=== PATIENT | female | born 1975 | race Caucasian/White ===

== ENCOUNTER 2020-11-29 12:36 | Emergency (ER) | payer MEDICARE, MEDICAID, SELFPAY ==
--- NOTE | 2020-11-29 12:37 | ED_ITS ---
HPI - Psych General Chief Complaint: Psychiatric Symptoms Stated Complaint: CRISIS,SI,AUDIO/VISUAL HALLUCINATIONS Time Seen by Provider: 11/29/20 12:37 Source: patient and EMS Mode of arrival: EMS Limitations: no limitations History of Present Illness HPI Narrative: 44 yo female with longstanding mental health issues here having anxiety, SI, flashbacks no injuries at this time MD complaint: suicidal ideation, anxiety and hallucinations Onset (ago): day(s) (1) Duration: constant History of same: Yes Relieving factors: none Exacerbating factors: other (flashbacks) Context: significant life stressor Associated psychiatric symptoms: depression, suicidal ideation, auditory hallucinations and visual hallucinations Associated symptoms: denies other symptoms Treatments prior to arrival: none If self harm: admits thoughts of self harm Related Data Allergies Allergy/AdvReac Type Severity Reaction Status Date / Time Fish Containing Products Allergy Severe ANAPHYLAXIS Unverified 07/01/20 16:44 codeine [Codeine] Allergy Unknown RASH Unverified 07/01/20 16:44 penicillin V Allergy Unknown Verified 01/10/18 00:00 Penicillins Allergy Unknown RASH Unverified 07/01/20 16:44 prednisolone Allergy Unknown Verified 01/10/18 00:00 prednisone [Prednisone] Allergy Unknown RASH Unverified 07/01/20 16:44 Sulfa (Sulfonamide Allergy Unknown RASH Unverified 07/01/20 16:44 Antibiotics) [Sulfa (Sulfonamides)] ziprasidone [Geodon] Allergy Unknown Verified 01/10/18 00:00 azithromycin [AZITHROMYCIN] AdvReac Severe RASH Unverified 07/01/20 16:44 nicotine AdvReac Unknown HEART Unverified 07/01/20 16:44 PALPITATION TO NICOTINE GUM Seafood Allergy Severe ANAPHYLAXIS Uncoded 07/01/20 16:44 Codeine Phosphate Allergy Unknown Uncoded 01/10/18 00:00 From Geodon Allergy Unknown DYSURIA, Uncoded 07/01/20 16:44 RASH seafood Allergy Unknown Uncoded 01/10/18 00:00 Review of Systems Review of Systems: Constitutional : No Fever, No Chills ENT/Mouth : No Ear Pain, No Nasal Congestion, No sore throat Eyes: No Eye Pain, No Swelling, No Redness Cardiovascular : No Chest Pain, No SOB Respiratory : No Cough, No Sputum, No Dyspnea Gastrointestinal : No Nausea, No Vomiting, No Diarrhea, No Hematochezia, No Melena Genitourinary : No Dysuria, No Urinary Frequency, No Hematuria Musculoskeletal : No Myalgias Skin : No Skin Lesions, No rash Neuro : No Weakness, No Numbness, No Paresthesias, No Dizziness, No Headache Psych : positive Anxiety, positive Depression, positive SI no HI, pos hallucinations Heme/Lymph: No Lymphadenopathy Endocrine : No Polyuria, No Polydipsia All other systems reviewed and are negative [facility] Past Medical History Attestation statement: The following information was validated with the patient. Source: old records reviewed Medical History (Updated 11/29/20 @ 15:31 by Mojgan Hernandez DO) Bronchitis GERD (gastroesophageal reflux disease) Hyperlipidemia Mood disorder Overdose PTSD (post-traumatic stress disorder) Social History Social History (Updated 11/29/20 @ 12:43 by Mojgan Hernandez DO) Smoking Status: Current every day smoker Use of substances other than those prescribed or required for medical reasons: No Advance Directives: No Advance Directives Information Provided: No Physical Exam Vital Signs: Vital Signs: Last Vital Signs Temp 98.6 F 11/29/20 14:00 Pulse 100 11/29/20 14:00 Resp 18 11/29/20 14:00 BP 150/87 H 11/29/20 14:00 Pulse Ox 97 11/29/20 14:00 Body Mass Index 39.9 Appearance: Alert. Oriented X3. No acute distress. Anxious Eyes: Pupils equal, round and reactive to light. ENT: Pharynx normal. Neck: Normal inspection. Neck supple. CVS: Normal heart rate and rhythm. Pulses normal. Respiratory: No respiratory distress. Breath sounds normal. Abdomen: Soft and nontender. Skin: Skin warm and dry. Normal skin color. Normal skin turgor. Extremities: No lower extremity edema. No calf ttp Neuro: Oriented X 3. No motor deficit. No sensory deficit. CN 2 - 12 intact Psych: + anxiety/depression, + SI no HI Course Course Course Narrative: signed out pending N MDM - Psych MDM Narrative Medical decision making narrative: 44 yo female with longstanding mental health issues here with SI / anxiety / flashbacks - typical of her presentation, will obtain labs, PO ativan for anxiety, low susp for self harm in ED at this time close observations ordered, N consult placed Lab Data Result diagrams: 11/29/20 14:05 11/29/20 14:05 Labs: Lab Results 11/29/20 11/29/20 11/29/20 Range/Units 14:05 14:05 14:05 WBC 7.5 (4.8-10.8) X10*3/uL RBC 4.04 L (4.20-5.50) X10*6/uL Hgb 11.9 L (12.0-16.0) g/dl Hct 36.3 L (37-47) % MCV 89.9 (80-98) fL MCH 29.5 (27.0-33.0) pg MCHC 32.8 (31.0-35.0) g/dl RDW 12.4 (11.0-16.0) % Plt Count 299 (160-400) X10*3/uL MPV 9.7 (9.4-12.3) fL Immature Gran % (Auto) 0.3 (0.0-0.4) % Neut % (Auto) 74.0 H (45-73) % Lymph % (Auto) 16.9 L (20-40) % [place] % (Auto) 5.3 (2-11) % Eos % (Auto) 3.1 (0-4) % Baso % (Auto) 0.4 (0-2) % Lymph # (Auto) 1.3 (1.2-4.9) X10*3/uL [place] # (Auto) 0.4 (0.1-1.2) X10*3/uL Eos # (Auto) 0.2 (0.0-0.4) X10*3/uL Baso # (Auto) 0.0 (0.0-0.2) X10*3/uL Abs Immat Gran (auto) 0.02 (0.00-0.03) X10*3/uL Absolute Neuts (auto) 5.6 (2.0-8.3) X10*3/uL Absolute Nucleated RBC 0.000 (0.0-0.012) X10*3/uL Nucleated RBC % (auto) 0.0 (0.0-0.2) /100WBC Sodium 138 (135-145) mmol/L Potassium 3.8 (3.3-5.1) mmol/L Chloride 105 (96-108) mmol/L Carbon Dioxide 25 (22-29) mmol/L Anion Gap 12 (12-20) BUN 13 (9-16) mg/dL Creatinine 0.79 (0.5-1.4) mg/dL Estim Creat Clear Calc 113.8 Estimated GFR > 60 Random Glucose 163 H (60-115) mg/dL Calcium 8.8 (8.4-10.2) mg/dL Total Bilirubin 0.5 (0.0-1.0) mg/dL Direct Bilirubin < 0.2 (0.0-0.5) mg/dL AST 14 (5-31) U/L ALT 11 (0-31) U/L Alkaline Phosphatase 93 (39-117) U/L Total Protein 6.4 L (6.5-8.0) g/dL Albumin 4.1 (3.5-5.0) g/dL COVID-19 ([facility]) Negative (Negative) COVID-19 Clin Com See Note Discharge Plan Discharge Clinical Impression: Acute anxiety, Chronic post-traumatic stress disorder (PTSD)
[2020-11-29] MEDS: LORazepam 1 MG TABLET 2 MG PO (12:49)
[2020-11-29 12:53] VITALS: BP 130/80; BP 150/87; PULSE 106; PULSE 108; RESP 18; TEMP 37; O2SAT 97; O2SAT 98; BMI 39.9
[2020-11-29] MEDS: LORazepam 1 MG TABLET PO (13:54)
--- NOTE | 2020-11-29 13:55 | PC.NURSE ---
Pt states she is still anxious, MD Hernandez placed order for additional 1mg ativan PO. Administered to patient. Will continue to monitor.
[2020-11-29 14:00] VITALS: BP 150/87; PULSE 100; RESP 18; TEMP 37; O2SAT 97
[2020-11-29 14:10] LABS: MANUAL DIFF FLAG NO
[2020-11-29 14:12] LABS: Basophils Percent Auto 0.4 % (0-2); Eosinophils Absolute Auto 0.2 X10*3/uL (0.0-0.4); Eosinophils Percent Auto 3.1 % (0-4); Hematocrit 36.3 % (37-47); Hemoglobin 11.9 g/dl (12.0-16.0); Imm Gran Abs Auto 0.02 X10*3/uL (0.00-0.03); Imm Gran Pct Auto 0.3 % (0.0-0.4); Lymphocytes Absolute Auto 1.3 X10*3/uL (1.2-4.9); Lymphocytes Percent Auto 16.9 % (20-40); Mean Corpuscular HGB Conc 32.8 g/dl (31.0-35.0); Mean Corpuscular Hemoglobin 29.5 pg (27.0-33.0); Mean Corpuscular Volume 89.9 fL (80-98); Mean Platelet Volume 9.7 fL (9.4-12.3); Monocytes Absolute Auto 0.4 X10*3/uL (0.1-1.2); Monocytes Percent Auto 5.3 % (2-11); Neutrophils Absolute Auto 5.6 X10*3/uL (2.0-8.3); Platelet Count 299 X10*3/uL (160-400); Red Blood Count 4.04 X10*6/uL (4.20-5.50); Red Cell Distribution Width 12.4 % (11.0-16.0); White Blood Count 7.5 X10*3/uL (4.8-10.8)
[2020-11-29 14:27] LABS: COVID-19 Test Negative (Negative)
[2020-11-29 14:37] LABS: Alanine Aminotransferase 11 U/L (0-31); Albumin Level 4.1 g/dL (3.5-5.0); Alkaline Phosphatase 93 U/L (39-117); Anion Gap 12 (12-20); Aspartate Amino Transferase 14 U/L (5-31); Bilirubin Direct < 0.2 mg/dL (0.0-0.5); Bilirubin Total 0.5 mg/dL (0.0-1.0); Blood Urea Nitrogen 13 mg/dL (9-16); Calcium 8.8 mg/dL (8.4-10.2); Carbon Dioxide 25 mmol/L (22-29); Chloride 105 mmol/L (96-108); Creatinine Clr Calc Pharmacy 113.8; Estimated Glomerular Filt Rate > 60; Glucose Random 163 mg/dL (60-115); Potassium 3.8 mmol/L (3.3-5.1); Sodium 138 mmol/L (135-145); Total Protein 6.4 g/dL (6.5-8.0)
[2020-11-29 16:00] VITALS: BP 144/82; PULSE 95; RESP 18; O2SAT 97
--- NOTE | 2020-11-29 17:39 | MHC.CARE ---
This repairer typewriter faxed referral for evaluation to [facility], called to follow up. Per [facility] counselor, fax referral had not yet been received however pt will be added to the list. This repairer typewriter will call to follow up again at 1800.
--- NOTE | 2020-11-29 19:41 | MHC.CARE ---
Pt was seen by CARE team due to [facility] not having any clinicians. [place] [facility] [place] [facility] [employer] secondary to endorsing PTSD and AH to harm herself. She expressed that she is stressed out, tired and having flashbacks of my cousin who killed herself in front of me . Pt requested to return to [facility], denied any current AH/VH and SI/HI. She denied any thoughts of self harm and reports feeling safe to return to her halfway.
--- NOTE | 2020-11-29 20:37 | PC.NURSE ---
PATIENT CLEARED/READY FOR DISCHARGE. PT ATTEMPTING TO CONTACT RIDES AT THIS TIME. WILL CONTINUE TO MONITOR.
== END 2020-11-29 22:21 | disposition home or self-care (01) ==
PROVIDERS: Emergency Provider Emergency Medicine; PCP Internal Medicine
DX: F41.9 Anxiety disorder, unspecified (principal); F43.12 Post-traumatic stress disorder, chronic; F32.9 Major depressive disorder, single episode, unspecified; R45.851 Suicidal ideations; R44.0 Auditory hallucinations; R44.1 Visual hallucinations; Z20.822 Contact with and (suspected) exposure to COVID-19; F17.200 Nicotine dependence, unspecified, uncomplicated; Z91.5 Personal history of self-harm
CPT/HCPCS: 36415; 80048; 80076; 85025; 87635; 99285

== ENCOUNTER 2020-12-15 13:20 | Emergency (ER) | payer MEDICARE, MEDICAID, SELFPAY ==
[2020-12-15 13:31] VITALS: BP 119/74; PULSE 116; RESP 19; TEMP 37.1; O2SAT 97; BMI 39.9
--- NOTE | 2020-12-15 13:39 | ED.PSYCH ---
HPI - Psych General Chief Complaint: Psychiatric Symptoms Stated Complaint: CIRSIS [id number] Time Seen by Provider: 12/15/20 13:38 Source: patient and EMS Mode of arrival: EMS Limitations: no limitations History of Present Illness HPI Narrative: 45 yo female with long standing mental health issues and past trauma comes in with c/o SI 2 days after revisiting past trauma MD complaint: suicidal ideation and feels depressed Onset (ago): day(s) (2) Duration: constant History of same: Yes Relieving factors: none Exacerbating factors: none Context: significant life stressor Associated psychiatric symptoms: depression Associated symptoms: denies other symptoms Treatments prior to arrival: placed on mental health hold If self harm: admits thoughts of self harm Related Data Allergies Allergy/AdvReac Type Severity Reaction Status Date / Time Fish Containing Products Allergy Severe ANAPHYLAXIS Unverified 07/01/20 16:44 codeine [Codeine] Allergy Unknown RASH Unverified 07/01/20 16:44 penicillin V Allergy Unknown Verified 01/10/18 00:00 Penicillins Allergy Unknown RASH Unverified 07/01/20 16:44 prednisolone Allergy Unknown Verified 01/10/18 00:00 prednisone [Prednisone] Allergy Unknown RASH Unverified 07/01/20 16:44 Sulfa (Sulfonamide Allergy Unknown RASH Unverified 07/01/20 16:44 Antibiotics) [Sulfa (Sulfonamides)] ziprasidone [Geodon] Allergy Unknown Verified 01/10/18 00:00 azithromycin [AZITHROMYCIN] AdvReac Severe RASH Unverified 07/01/20 16:44 nicotine AdvReac Unknown HEART Unverified 07/01/20 16:44 PALPITATION TO NICOTINE GUM Seafood Allergy Severe ANAPHYLAXIS Uncoded 07/01/20 16:44 Codeine Phosphate Allergy Unknown Uncoded 01/10/18 00:00 From Geodon Allergy Unknown DYSURIA, Uncoded 07/01/20 16:44 RASH seafood Allergy Unknown Uncoded 01/10/18 00:00 Review of Systems Review of Systems: Constitutional : No Fever, No Chills ENT/Mouth : No Ear Pain, No Nasal Congestion, No sore throat Eyes: No Eye Pain, No Swelling, No Redness Cardiovascular : No Chest Pain, No SOB Respiratory : No Cough, No Sputum, No Dyspnea Gastrointestinal : No Nausea, No Vomiting, No Diarrhea, No Hematochezia, No Melena Genitourinary : No Dysuria, No Urinary Frequency, No Hematuria Musculoskeletal : No Myalgias Skin : No Skin Lesions, No rash, superficial scratch from her own nails L forearm Neuro : No Weakness, No Numbness, No Paresthesias, No Dizziness, No Headache Psych : positive Anxiety, positive Depression, positive SI, no HI Heme/Lymph: No Lymphadenopathy Endocrine : No Polyuria, No Polydipsia All other systems reviewed and are negative [facility] Past Medical History Medical History Bronchitis GERD (gastroesophageal reflux disease) Hyperlipidemia Mood disorder Overdose PTSD (post-traumatic stress disorder) Social History Social History Alcohol intake: never Smoking Status: Current every day smoker Smoked in Last 30 Days: No Use of substances other than those prescribed or required for medical reasons: No Advance Directives: No Advance Directives Information Provided: No Physical Exam Vital Signs: Vital Signs: Last Vital Signs Temp 98.7 F 12/15/20 13:31 Pulse 116 H 12/15/20 13:31 Resp 19 12/15/20 13:31 BP 119/74 12/15/20 13:31 Pulse Ox 97 12/15/20 13:31 Body Mass Index 39.9 Appearance: Alert. Oriented X3. No acute distress. Eyes: Pupils equal, round and reactive to light. ENT: Pharynx normal. Neck: Normal inspection. Neck supple. CVS: Normal heart rate and rhythm. Pulses normal. Respiratory: No respiratory distress. Breath sounds normal. Abdomen: Soft and nontender. Skin: Skin warm and dry. Normal skin color. Normal skin turgor. L forearm mild superficial abrasion Extremities: No lower extremity edema. No calf ttp Neuro: Oriented X 3. No motor deficit. No sensory deficit. Psych: + depressed, + SI, no HI, hearing voices Course Course Course Narrative: signed out pending N MDM - Psych MDM Narrative Medical decision making narrative: 45 yo female well known to facility for mental health issues c/o SI - on section 12 PO ativan for anxiety, labs, [facility]N consult Lab Data Result diagrams: 12/15/20 15:18 12/15/20 15:18 Labs: Lab Results 12/15/20 12/15/20 12/15/20 Range/Units 14:52 15:18 15:18 WBC 6.7 (4.8-10.8) X10*3/uL RBC 4.21 (4.20-5.50) X10*6/uL Hgb 12.2 (12.0-16.0) g/dl Hct 37.6 (37-47) % MCV 89.3 (80-98) fL MCH 29.0 (27.0-33.0) pg MCHC 32.4 (31.0-35.0) g/dl RDW 12.4 (11.0-16.0) % Plt Count 276 (160-400) X10*3/uL MPV 9.7 (9.4-12.3) fL Immature Gran % (Auto) 0.3 (0.0-0.4) % Neut % (Auto) 67.6 (45-73) % Lymph % (Auto) 22.0 (20-40) % [place] % (Auto) 7.3 (2-11) % Eos % (Auto) 2.2 (0-4) % Baso % (Auto) 0.6 (0-2) % Lymph # (Auto) 1.5 (1.2-4.9) X10*3/uL [place] # (Auto) 0.5 (0.1-1.2) X10*3/uL Eos # (Auto) 0.2 (0.0-0.4) X10*3/uL Baso # (Auto) 0.0 (0.0-0.2) X10*3/uL Abs Immat Gran (auto) 0.02 (0.00-0.03) X10*3/uL Absolute Neuts (auto) 4.6 (2.0-8.3) X10*3/uL Absolute Nucleated RBC 0.000 (0.0-0.012) X10*3/uL Nucleated RBC % (auto) 0.0 (0.0-0.2) /100WBC Sodium 137 (135-145) mmol/L Potassium 4.1 (3.3-5.1) mmol/L Chloride 102 (96-108) mmol/L Carbon Dioxide 28 (22-29) mmol/L Anion Gap 11 L (12-20) BUN 9 (9-16) mg/dL Creatinine 0.87 (0.5-1.4) mg/dL Estim Creat Clear Calc 102.3 Estimated GFR > 60 Random Glucose 97 D (60-115) mg/dL Calcium 9.1 (8.4-10.2) mg/dL Total Bilirubin 0.5 (0.0-1.0) mg/dL Direct Bilirubin 0.2 (0.0-0.5) mg/dL AST 14 (5-31) U/L ALT 12 (0-31) U/L Alkaline Phosphatase 96 (39-117) U/L Total Protein 6.8 (6.5-8.0) g/dL Albumin 4.3 (3.5-5.0) g/dL Urine Color STRAW Urine Appearance CLEAR Urine pH 6.0 (5.0-8.0) Ur Specific [place] <= 1.005 (1.005-1.025) Urine Protein NEG (NEG-TRACE) MG/DL Urine Glucose (UA) NEG (NEG) MG/DL Urine Ketones NEG (NEG) MG/DL Urine Blood NEG (NEG) Urine Nitrite NEG (NEG) Ur Leukocyte Esterase NEG (NEG) Discharge Plan Discharge Clinical Impression: Chronic post-traumatic stress disorder Depression Qualifiers: Depression Type: major depressive disorder Major depression recurrence: recurrent Active/Remission status: remission status unspecified Qualified Code(s): F33.9 - Major depressive disorder, recurrent, unspecified
[2020-12-15] MEDS: LORazepam 1 MG TABLET 2 MG PO (13:58)
--- NOTE | 2020-12-15 14:03 | PC.NURSE ---
pt changed over by security, belongings list done and placed in locker 6. pt seen by md barkley and medicated with 2mg po ativan.
[2020-12-15 15:02] LABS: Appearance Urine CLEAR; Color Urine STRAW; Glucose Urine UA NEG (NEG); Leukocyte Esterase Urine NEG (NEG); Nitrite Urine NEG (NEG); Specific Gravity - Urine <= 1.005 (1.005-1.025); Urine Blood NEG (NEG); Urine Ketones NEG (NEG); Urine Protein NEG (NEG-TRACE)
[2020-12-15 15:21] LABS: MANUAL DIFF FLAG NO
--- NOTE | 2020-12-15 15:22 | PC.NURSE ---
Report received. Pt cooperative with blood draw. Pt resting in bed at current. No complaints at this time. Waiting to be seen by N.
[2020-12-15 15:24] LABS: Basophils Percent Auto 0.6 % (0-2); Eosinophils Absolute Auto 0.2 X10*3/uL (0.0-0.4); Eosinophils Percent Auto 2.2 % (0-4); Hematocrit 37.6 % (37-47); Hemoglobin 12.2 g/dl (12.0-16.0); Imm Gran Abs Auto 0.02 X10*3/uL (0.00-0.03); Imm Gran Pct Auto 0.3 % (0.0-0.4); Lymphocytes Absolute Auto 1.5 X10*3/uL (1.2-4.9); Mean Corpuscular HGB Conc 32.4 g/dl (31.0-35.0); Mean Corpuscular Volume 89.3 fL (80-98); Mean Platelet Volume 9.7 fL (9.4-12.3); Monocytes Absolute Auto 0.5 X10*3/uL (0.1-1.2); Monocytes Percent Auto 7.3 % (2-11); Neutrophils Absolute Auto 4.6 X10*3/uL (2.0-8.3); Neutrophils Percent Auto 67.6 % (45-73); Platelet Count 276 X10*3/uL (160-400); Red Blood Count 4.21 X10*6/uL (4.20-5.50); Red Cell Distribution Width 12.4 % (11.0-16.0); White Blood Count 6.7 X10*3/uL (4.8-10.8)
[2020-12-15 15:53] LABS: Alanine Aminotransferase 12 U/L (0-31); Albumin Level 4.3 g/dL (3.5-5.0); Alkaline Phosphatase 96 U/L (39-117); Anion Gap 11 (12-20); Aspartate Amino Transferase 14 U/L (5-31); Bilirubin Direct 0.2 mg/dL (0.0-0.5); Bilirubin Total 0.5 mg/dL (0.0-1.0); Blood Urea Nitrogen 9 mg/dL (9-16); Calcium 9.1 mg/dL (8.4-10.2); Carbon Dioxide 28 mmol/L (22-29); Chloride 102 mmol/L (96-108); Creatinine Clr Calc Pharmacy 102.3; Estimated Glomerular Filt Rate > 60; Glucose Random 97 mg/dL (60-115); Potassium 4.1 mmol/L (3.3-5.1); Sodium 137 mmol/L (135-145); Total Protein 6.8 g/dL (6.5-8.0)
--- NOTE | 2020-12-15 16:02 | PC.NURSE ---
[facility] meeting with pt
[2020-12-15 16:12] LABS: Amphetamine Screen Urine Not Detected (Not Detect); Barbiturates, Urine Not Detected (Not Detect); Benzodiazepines Screen Urine Not Detected (Not Detect); Cocaine Screen Urine Not Detected (Not Detect); Opiate Screen Urine Not Detected (Not Detect); Phencyclidine Screen Urine Not Detected (Not Detect)
[2020-12-15 16:27] LABS: Cannabinoid Screen Urine Not Detected (Not Detect)
--- NOTE | 2020-12-15 16:37 | PC.NURSE ---
Pt met with [facility], will be going to the [facility] for respite.
== END 2020-12-15 16:54 | disposition home or self-care (01) ==
PROVIDERS: Emergency Provider Emergency Medicine; PCP Internal Medicine
DX: F43.12 Post-traumatic stress disorder, chronic (principal); F33.9 Major depressive disorder, recurrent, unspecified; R45.851 Suicidal ideations; S50.812A Abrasion of left forearm, initial encounter; X58.XXXA Exposure to other specified factors, initial encounter; Z20.822 Contact with and (suspected) exposure to COVID-19; F41.9 Anxiety disorder, unspecified; F17.200 Nicotine dependence, unspecified, uncomplicated; E78.5 Hyperlipidemia, unspecified; Z91.5 Personal history of self-harm; Y93.9 Activity, unspecified; Y92.019 Unspecified place in single-family (private) house as the place of occurrence of the external cause; Y99.9 Unspecified external cause status
CPT/HCPCS: 36415; 80048; 80076; 80307; 81003; 85025; 99284; 99285

== ENCOUNTER 2021-01-26 17:35 | Emergency (ER) | payer MEDICARE, MEDICAID, SELFPAY ==
--- NOTE | 2021-01-26 | ECG_ITS ---
Test Reason : OVERDOSE Blood Pressure : / mmHG Vent. Rate : 120 BPM Atrial Rate : 120 BPM P-R Int : 148 ms QRS Dur : 076 ms QT Int : 324 ms P-R-T Axes : 060 061 065 degrees QTc Int : 457 ms Sinus tachycardia Otherwise normal ECG When compared with ECG of 26-MAR-2020 13:26, Vent. rate has increased BY 44 BPM Referred By: Eileen Ryan Electronically Signed By:MAURI COLE
[2021-01-26 17:46] VITALS: BP 158/94; PULSE 115; RESP 16; TEMP 36.8; O2SAT 96; BMI 33.3
--- NOTE | 2021-01-26 18:05 | ED_ITS ---
HPI - Overdose General Chief Complaint: Overdose Stated Complaint: SI,OD TYLENOL Time Seen by Provider: 01/26/21 17:53 Source: patient Mode of arrival: EMS Limitations: no limitations History of Present Illness HPI Narrative: Patient comes emergency room complaining of Tylenol overdose. Patient states the voices in her head told her to go to [facility] and by extra- strength Tylenol an ingested. Patient states she drank the whole bottle, she states that over 24 tablets in it, [place] swallowed all of [place] [address] mg. This occurred 50 minutes prior to arrival. Patient denies using any other medications alcohol or drugs. MD complaint: intentional overdose Related Data Allergies Allergy/AdvReac Type Severity Reaction Status Date / Time Fish Containing Products Allergy Severe ANAPHYLAXIS Unverified 07/01/20 16:44 codeine [Codeine] Allergy Unknown RASH Unverified 07/01/20 16:44 penicillin V Allergy Unknown Verified 01/10/18 00:00 Penicillins Allergy Unknown RASH Unverified 07/01/20 16:44 prednisolone Allergy Unknown Verified 01/10/18 00:00 prednisone [Prednisone] Allergy Unknown RASH Unverified 07/01/20 16:44 Sulfa (Sulfonamide Allergy Unknown RASH Unverified 07/01/20 16:44 Antibiotics) [Sulfa (Sulfonamides)] ziprasidone [Geodon] Allergy Unknown Verified 01/10/18 00:00 azithromycin [AZITHROMYCIN] AdvReac Severe RASH Unverified 07/01/20 16:44 nicotine AdvReac Unknown HEART Unverified 07/01/20 16:44 PALPITATION TO NICOTINE GUM Seafood Allergy Severe ANAPHYLAXIS Uncoded 07/01/20 16:44 Codeine Phosphate Allergy Unknown Uncoded 01/10/18 00:00 From Geodon Allergy Unknown DYSURIA, Uncoded 07/01/20 16:44 RASH seafood Allergy Unknown Uncoded 01/10/18 00:00 Review of Systems Review of Systems: Constitutional : No Weight loss, No Fever, No Chills, No Night Sweats, No Fatigue, No Malaise ENT/Mouth : No Hearing loss, No Ear Pain, No Nasal Congestion, No Sinus Pain, No Hoarseness, No sore throat, No Rhinorrhea, No Swallowing Difficulty Eyes: No Eye Pain, No Swelling, No Redness, No Foreign Body, No Discharge, No Vision Changes Cardiovascular : No Chest Pain, No SOB, No Dyspnea on Exertion, No Orthopnea, No Edema, No Palpitations Respiratory : No Cough, No Sputum, No Wheezing, No Smoke Exposure, No Dyspnea Gastrointestinal : No Nausea, No Vomiting, No Diarrhea, No Constipation, No abdominal Pain, No Hematochezia, No Melena Genitourinary : no irregular bleeding, No Dysuria, No Urinary Frequency, No Hematuria, No Urinary Incontinence, No Urgency, No Flank Pain, No Urinary Flow Changes, No Hesitancy Musculoskeletal : No joint pain, No Myalgias, No Joint Swelling Skin : No Skin Lesions, No rash Neuro : No Weakness, No Numbness, No Paresthesias, No Loss of Consciousness, No Dizziness, No Headache Psych : Complaining of anxiety, depression, suicide attempt Heme/Lymph: No Bruising, No Bleeding,No Lymphadenopathy Endocrine : No Polyuria, No Polydipsia, No Temperature Intolerance PMFSH Past Medical History Medical History Bronchitis GERD (gastroesophageal reflux disease) Hyperlipidemia Mood disorder Overdose PTSD (post-traumatic stress disorder) Social History Social History Alcohol intake: unknown Smoking Status: Unknown if ever smoked Use of substances other than those prescribed or required for medical reasons: Unknown Advance Directives: No Advance Directives Information Provided: No Physical Exam Vital Signs: Vital Signs: Last Vital Signs Temp 97.4 F 01/27/21 00:00 Pulse 88 01/27/21 00:00 Resp 16 01/27/21 00:00 BP 138/85 01/27/21 00:00 Pulse Ox 99 01/27/21 00:00 Body Mass Index 33.3 Appearance: Alert. Oriented X3. Crying Eyes: Pupils equal, round and reactive to light. ENT: Pharynx normal. Neck: Normal inspection. Neck supple. No lymph nodes noted. No crepitus CVS: Normal heart rate and rhythm. Pulses normal. Normal S1 and S2 Respiratory: No respiratory distress. Breath sounds normal. No Wheezing. No rales Abdomen: Soft and nontender. No rigidity. No distention. good BS x4 Skin: Skin warm and dry. Normal skin color. Normal skin turgor. Extremities: No lower extremity edema. Neuro: Oriented X 3. No motor deficit. No sensory deficit. Moving all extermities. No slurred speech. Course Course Course Narrative: Patient states that she ingested a 24 tablets of 500 mg of Tylenol less than an hour ago, a as a gastric to inserted on arrival, gastric lavage in progress, activated charcoal being given the NG tube. Labs pending. Poison Control has been contacted Initial acetaminophen level is 173, at this time we will not start N- acetylcysteine, not indicated per acetaminophen nomogram, acetaminophen levels will be repeated at 22:30. Patient is sleeping, vitals stable Acetaminophen level at 04:00 hours is 63. Patient remained stable, sleeping, easily arousable. Patient has not given a urinalysis yet. [facility] the morning for auditory hallucinations and suicide attempt Patient is now on the physician observation. Patient is to be evaluated by [facility] for auditory hallucinations and suicide attempt by Tylenol overdose. Patient's vitals are stable, patient is sleeping but easily arousable Patient is under Section 12, and with a one-to-one sitter Sign-out given to Dr. Hernandez MDM - Overdose Lab Data Result diagrams: 01/26/21 18:23 01/26/21 18:23 Labs: Lab Results 01/26/21 01/26/21 01/26/21 Range/Units 18:03 18:23 18:23 WBC 7.8 (4.8-10.8) X10*3/uL RBC 4.09 L (4.20-5.50) X10*6/uL Hgb 11.9 L (12.0-16.0) g/dl Hct 37.1 (37-47) % MCV 90.7 (80-98) fL MCH 29.1 (27.0-33.0) pg MCHC 32.1 (31.0-35.0) g/dl RDW 13.5 (11.0-16.0) % Plt Count 279 (160-400) X10*3/uL MPV 9.8 (9.4-12.3) fL Immature Gran % (Auto) 0.5 H (0.0-0.4) % Neut % (Auto) 63.9 (45-73) % Lymph % (Auto) 25.4 (20-40) % Erie % (Auto) 7.3 (2-11) % Eos % (Auto) 2.6 (0-4) % Baso % (Auto) 0.3 (0-2) % Lymph # (Auto) 2.0 (1.2-4.9) X10*3/uL Erie # (Auto) 0.6 (0.1-1.2) X10*3/uL Eos # (Auto) 0.2 (0.0-0.4) X10*3/uL Baso # (Auto) 0.0 (0.0-0.2) X10*3/uL Abs Immat Gran (auto) 0.04 H (0.00-0.03) X10*3/uL Absolute Neuts (auto) 5.0 (2.0-8.3) X10*3/uL Absolute Nucleated RBC 0.000 (0.0-0.012) X10*3/uL Nucleated RBC % (auto) 0.0 (0.0-0.2) /100WBC Hold Purple Top SEE NOTE Hold Blue Top Sodium (135-145) mmol/L Potassium (3.3-5.1) mmol/L Chloride (96-108) mmol/L Carbon Dioxide (22-29) mmol/L Anion Gap (12-20) BUN (9-16) mg/dL Creatinine (0.5-1.4) mg/dL Estim Creat Clear Calc Estimated GFR Fasting Glucose (60-99) mg/dL Calcium (8.4-10.2) mg/dL Total Bilirubin (0.0-1.0) mg/dL Direct Bilirubin (0.0-0.5) mg/dL AST (5-31) U/L ALT (0-31) U/L Alkaline Phosphatase (39-117) U/L Total Protein (6.5-8.0) g/dL Albumin (3.5-5.0) g/dL Salicylates (15-30) mg/dL Acetaminophen (<30) mcg/mL Ethyl Alcohol mg/dL COVID-19 (NICK) Negative (Negative) COVID-19 Clin Com See Note 01/26/21 01/26/21 01/26/21 Range/Units 18:23 18:23 18:23 WBC (4.8-10.8) X10*3/uL RBC (4.20-5.50) X10*6/uL Hgb (12.0-16.0) g/dl Hct (37-47) % MCV (80-98) fL MCH (27.0-33.0) pg MCHC (31.0-35.0) g/dl RDW (11.0-16.0) % Plt Count (160-400) X10*3/uL MPV (9.4-12.3) fL Immature Gran % (Auto) (0.0-0.4) % Neut % (Auto) (45-73) % Lymph % (Auto) (20-40) % Erie % (Auto) (2-11) % Eos % (Auto) (0-4) % Baso % (Auto) (0-2) % Lymph # (Auto) (1.2-4.9) X10*3/uL Erie # (Auto) (0.1-1.2) X10*3/uL Eos # (Auto) (0.0-0.4) X10*3/uL Baso # (Auto) (0.0-0.2) X10*3/uL Abs Immat Gran (auto) (0.00-0.03) X10*3/uL Absolute Neuts (auto) (2.0-8.3) X10*3/uL Absolute Nucleated RBC (0.0-0.012) X10*3/uL Nucleated RBC % (auto) (0.0-0.2) /100WBC Hold Purple Top Hold Blue Top SEE NOTE Sodium 140 (135-145) mmol/L Potassium 3.9 (3.3-5.1) mmol/L Chloride 110 H (96-108) mmol/L Carbon Dioxide 21 L (22-29) mmol/L Anion Gap 13 (12-20) BUN 7 L (9-16) mg/dL Creatinine 0.77 (0.5-1.4) mg/dL Estim Creat Clear Calc 104.8 Estimated GFR > 60 Fasting Glucose 117 H (60-99) mg/dL Calcium 9.0 (8.4-10.2) mg/dL Total Bilirubin (0.0-1.0) mg/dL Direct Bilirubin (0.0-0.5) mg/dL AST (5-31) U/L ALT (0-31) U/L Alkaline Phosphatase (39-117) U/L Total Protein (6.5-8.0) g/dL Albumin (3.5-5.0) g/dL Salicylates < 5.0 L (15-30) mg/dL Acetaminophen 173 H* (<30) mcg/mL Ethyl Alcohol < 10 mg/dL COVID-19 (NICK) (Negative) COVID-19 Clin Com 01/26/21 01/26/21 Range/Units 18:23 22:11 WBC (4.8-10.8) X10*3/uL RBC (4.20-5.50) X10*6/uL Hgb (12.0-16.0) g/dl Hct (37-47) % MCV (80-98) fL MCH (27.0-33.0) pg MCHC (31.0-35.0) g/dl RDW (11.0-16.0) % Plt Count (160-400) X10*3/uL MPV (9.4-12.3) fL Immature Gran % (Auto) (0.0-0.4) % Neut % (Auto) (45-73) % Lymph % (Auto) (20-40) % Erie % (Auto) (2-11) % Eos % (Auto) (0-4) % Baso % (Auto) (0-2) % Lymph # (Auto) (1.2-4.9) X10*3/uL Erie # (Auto) (0.1-1.2) X10*3/uL Eos # (Auto) (0.0-0.4) X10*3/uL Baso # (Auto) (0.0-0.2) X10*3/uL Abs Immat Gran (auto) (0.00-0.03) X10*3/uL Absolute Neuts (auto) (2.0-8.3) X10*3/uL Absolute Nucleated RBC (0.0-0.012) X10*3/uL Nucleated RBC % (auto) (0.0-0.2) /100WBC Hold Purple Top Hold Blue Top Sodium (135-145) mmol/L Potassium (3.3-5.1) mmol/L Chloride (96-108) mmol/L Carbon Dioxide (22-29) mmol/L Anion Gap (12-20) BUN (9-16) mg/dL Creatinine (0.5-1.4) mg/dL Estim Creat Clear Calc Estimated GFR Fasting Glucose (60-99) mg/dL Calcium (8.4-10.2) mg/dL Total Bilirubin 0.3 (0.0-1.0) mg/dL Direct Bilirubin < 0.2 (0.0-0.5) mg/dL AST 14 (5-31) U/L ALT 13 (0-31) U/L Alkaline Phosphatase 102 (39-117) U/L Total Protein 6.6 (6.5-8.0) g/dL Albumin 4.2 (3.5-5.0) g/dL Salicylates (15-30) mg/dL Acetaminophen 63 H* (<30) mcg/mL Ethyl Alcohol mg/dL COVID-19 (NICK) (Negative) COVID-19 Clin Com ECG Data Attestation: I personally reviewed and interpreted this ECG as follows: (Sinus rhythm, tachycardia 120, his 2nd occasional elevation, no T-wave inversion, QTC 457) Discharge Plan Discharge Clinical Impression: Auditory hallucination Suicide attempt by acetaminophen overdose Qualifiers: Encounter type: initial encounter Qualified Code(s): T39.1X2A - Poisoning by 4- Aminophenol derivatives, intentional self-harm, initial encounter
[2021-01-26] MEDS: Lidocaine HCl 4 % Laryng-O-Jet 4 ML 1 APPL TOPICAL (18:21)
[2021-01-26] MEDS: LORazepam 2 MG/ML VIAL IVPUSH (18:21)
[2021-01-26 18:31] LABS: MANUAL DIFF FLAG NO
[2021-01-26] MEDS: Activated charcoaL 50 GM/240 ML ORAL.SUSP PO (18:31)
[2021-01-26 18:38] LABS: Basophils Percent Auto 0.3 % (0-2); Eosinophils Absolute Auto 0.2 X10*3/uL (0.0-0.4); Eosinophils Percent Auto 2.6 % (0-4); Hematocrit 37.1 % (37-47); Hemoglobin 11.9 g/dl (12.0-16.0); Imm Gran Abs Auto 0.04 X10*3/uL (0.00-0.03); Imm Gran Pct Auto 0.5 % (0.0-0.4); Lymphocytes Percent Auto 25.4 % (20-40); Mean Corpuscular HGB Conc 32.1 g/dl (31.0-35.0); Mean Corpuscular Hemoglobin 29.1 pg (27.0-33.0); Mean Corpuscular Volume 90.7 fL (80-98); Mean Platelet Volume 9.8 fL (9.4-12.3); Monocytes Absolute Auto 0.6 X10*3/uL (0.1-1.2); Monocytes Percent Auto 7.3 % (2-11); Neutrophils Percent Auto 63.9 % (45-73); Platelet Count 279 X10*3/uL (160-400); Red Blood Count 4.09 X10*6/uL (4.20-5.50); Red Cell Distribution Width 13.5 % (11.0-16.0); White Blood Count 7.8 X10*3/uL (4.8-10.8)
[2021-01-26 18:50] LABS: COVID-19 Test Negative (Negative)
--- NOTE | 2021-01-26 18:52 | PC.NURSE ---
ng placed in r nostril per md order. gastric lavage performed- md at bedside. charcoal also admin by ng per md order as well. ng removed. pt tolerated well.
[2021-01-26 18:57] LABS: Ethanol < 10 mg/dL
[2021-01-26 18:58] VITALS: BP 132/71; PULSE 100; RESP 18; TEMP 36.3; O2SAT 96
[2021-01-26 19:02] LABS: Alanine Aminotransferase 13 U/L (0-31); Albumin Level 4.2 g/dL (3.5-5.0); Alkaline Phosphatase 102 U/L (39-117); Aspartate Amino Transferase 14 U/L (5-31); Bilirubin Direct < 0.2 mg/dL (0.0-0.5); Bilirubin Total 0.3 mg/dL (0.0-1.0); Total Protein 6.6 g/dL (6.5-8.0)
[2021-01-26 19:28] LABS: Acetaminophen LAB 173 mcg/mL (<30); Anion Gap 13 (12-20); Blood Urea Nitrogen 7 mg/dL (9-16); Carbon Dioxide 21 mmol/L (22-29); Chloride 110 mmol/L (96-108); Creatinine Clr Calc Pharmacy 104.8; Estimated Glomerular Filt Rate > 60; Glucose Fasting 117 mg/dL (60-99); Potassium 3.9 mmol/L (3.3-5.1); Salicylate < 5.0 mg/dL (15-30); Sodium 140 mmol/L (135-145)
[2021-01-26 20:02] VITALS: BP 116/77; PULSE 105; RESP 16; TEMP 37.2; O2SAT 94
--- NOTE | 2021-01-26 20:18 | PC.NURSE ---
PATIENT WAS INCONIENT OF LOOSE STOOL ON FLOOR ,RN AWARE.
[2021-01-26 22:00] VITALS: BP 126/82; PULSE 88; RESP 16; TEMP 36.9; O2SAT 97
--- NOTE | 2021-01-26 22:30 | PC.NURSE ---
REPEAT TYLENOL LEVEL DRAWN TO LAB FOR EVAL. PT SLEEPING IN STRETCHER IN NAD.
--- NOTE | 2021-01-26 22:31 | PC.NURSE ---
labs drawn to lab.
[2021-01-26 23:42] LABS: Acetaminophen LAB 63 mcg/mL (<30)
[2021-01-27] VITALS (7 sets, daily range): BP systolic 138–163; BP diastolic 85–96; PULSE 81–89; RESP 16–19; TEMP 36.3–36.9; O2SAT 95–99
--- NOTE | 2021-01-27 01:20 | PC.NURSE ---
PT SLEEPING, WAKES TO VOICE, PT DENIES COMPLAINTS AT THIS TIME. PT REMAINS ON MONITOR WITH HR 88. PT IN NAD. WILL CONTINUE TO MONITOR PT.
--- NOTE | 2021-01-27 01:38 | PC.NURSE ---
PT UP AND AMBULATES WITH STEADY EVEN GAIT TO RESTROOM FOR URINE SAMPLE.
[2021-01-27 02:13] LABS: Glucose Urine UA NEG (NEG); Leukocyte Esterase Urine NEG (NEG); Nitrite Urine NEG (NEG); PH 5.5 (5.0-8.0); Specific Gravity - Urine 1.025 (1.005-1.025); Urine Blood 2+ (NEG); Urine Ketones NEG (NEG); Urine Protein NEG (NEG-TRACE)
[2021-01-27 02:18] LABS: Appearance Urine HAZY; Bacteria Urine 1+ /LPF; Color Urine YELLOW; Mucus Urine 1+ /LPF; Squamous Epithelial Cell Urine 1+ /LPF
[2021-01-27 02:52] LABS: Amphetamine Screen Urine Not Detected (Not Detect); Barbiturates, Urine Not Detected (Not Detect); Benzodiazepines Screen Urine Not Detected (Not Detect); Cannabinoid Screen Urine Not Detected (Not Detect); Cocaine Screen Urine Not Detected (Not Detect); Opiate Screen Urine Not Detected (Not Detect); Phencyclidine Screen Urine Not Detected (Not Detect)
[2021-01-27 03:19] LABS: UPreg QC Valid YES; Urine Pregnancy NEGATIVE (NEGATIVE)
--- NOTE | 2021-01-27 03:47 | PC.NURSE ---
FAXED TO [facility], CALLED [facility] AND RECEIVED FAXED AT THIS TIME.
--- NOTE | 2021-01-27 09:31 | PC.NURSE ---
Patient is awake and alert. Skin PWD, resp even and non labored. Speaking in full, clear sentences. moved from bed 12 to thomas bed w/ sitter next to patient. patient denies thought of SI at this time. Patient does report some auditory hallucinations and states that the voices are calling her stupid. Patient ambulatory with steady gait. Did not want breakfast this morning. Awaiting [facility]
--- NOTE | 2021-01-27 17:05 | MHC.CM.ED ---
CM called [facility]. No time for when pt will be seen. RD called Kait MILLER from CARE team. Kait is aware of this patient and has spoken to [facility] [place] supervisior. Per Kait, either BAN or Kait will see pt. RD spoke with Dahlia from .
--- NOTE | 2021-01-27 17:11 | MHC.CARE ---
CARE Team speaks with N help desk supervisor, Blanco Peguero regarding pt's wait time for [facility] assessment. Blanco states that he and [facility] know this pt very well and they would like to see her. Blanco states that he will make a plan and call CARE Team back soon. If [facility] is not able to assess, CARE Team will assess pt this evening. IPLOC dispo is likely given intentional overdose on Tylenol.
--- NOTE | 2021-01-27 20:24 | PC.NURSE ---
ASSUMED CARE OF PT. PT RESTING CALM AND COOPERATIVE IN HALLWAY WITH SITTER AT BEDSIDE FOR SAFETY. PT ALERT, RESPIRATIONS EASY, N/L. SKIN W/D.
[2021-01-27 22:13] LABS: Glucose, Whole Blood 116 mg/dL (60-115)
--- NOTE | 2021-01-27 22:30 | PC.NURSE ---
Patient showered, reported being tired, BAN called/spoke with Nick notified that patient is on section 12 inpatient bed search.
[2021-01-28] VITALS (8 sets, daily range): BP systolic 117–162; BP diastolic 84–99; PULSE 84–845; RESP 16–20; TEMP 36–36.8; O2SAT 94–98
--- NOTE | 2021-01-28 07:15 | PC.NURSE ---
Report received from WALKER Gilbert. Pt resting, resp unlabored.
[2021-01-28] MEDS: metFORMIN HCl 500 MG TABLET PO ×2 (08:52→21:35)
[2021-01-28] MEDS: Montelukast Sodium 10 MG TABLET PO (08:52)
[2021-01-28] MEDS: LORazepam 1 MG TABLET PO ×2 (08:53→21:36)
[2021-01-28] MEDS: lisinopriL 5 MG TABLET PO (08:53)
[2021-01-28] MEDS: Doxazosin Mesylate 1 MG TABLET PO (08:54)
[2021-01-28] MEDS: Atorvastatin Calcium 10 MG TABLET PO (08:54)
[2021-01-28] MEDS: Benztropine Mesylate 1 MG TABLET PO (08:54)
[2021-01-28] MEDS: Loratadine 10 MG TABLET PO (08:55)
[2021-01-28 08:58] LABS: Glucose, Whole Blood 127 mg/dL (60-115)
[2021-01-28] MEDS: VerapamiL HCL SR 240 MG TABLET.ER PO (09:47)
--- NOTE | 2021-01-28 10:23 | PC.NURSE ---
Pt resting, resp unlabored- pt awakened for medications, cooperative w/ care, denies any concerns at this time, repoirting she was able to get some sleep.
--- NOTE | 2021-01-28 11:54 | PC.NURSE ---
Pt resting, resp unlabored.
[2021-01-28] MEDS: Ibuprofen 600 MG TABLET PO (15:12)
--- NOTE | 2021-01-28 16:25 | PC.NURSE ---
Pt resting, resp unlabored
[2021-01-28] MEDS: Nicotine Polacrilex 2 MG GUM BUCCAL (18:19)
[2021-01-28] MEDS: chlorproMAZINE HCl 25 MG TABLET PO (18:20)
--- NOTE | 2021-01-28 18:25 | PC.NURSE ---
Pt awake, alert. Reporting AH, given medication to manage AH as ordered, Pt currently resting in room.
--- NOTE | 2021-01-28 19:08 | PC.NURSE ---
Report received. PT is sleeping in bed. Respirations even and unlabored. PT is inpatient bed search.
[2021-01-28] MEDS: traZODone HCL 50 MG TABLET 150 MG PO (21:36)
--- NOTE | 2021-01-29 07:12 | PC.NURSE ---
Report recieved. PT currently sleeping, respirations even and unlabored, in no apparent distress. Pt is inpatient bedsearch.
[2021-01-29 08:11] VITALS: BP 137/78; PULSE 101; RESP 16; TEMP 36.2; O2SAT 96
[2021-01-29 08:12] VITALS: BP 137/78; PULSE 101
[2021-01-29] MEDS: metFORMIN HCl 500 MG TABLET PO ×2 (08:12→20:53)
[2021-01-29] MEDS: Doxazosin Mesylate 1 MG TABLET PO (08:12)
[2021-01-29] MEDS: Atorvastatin Calcium 10 MG TABLET PO (08:12)
[2021-01-29] MEDS: Montelukast Sodium 10 MG TABLET PO (08:12)
[2021-01-29] MEDS: lisinopriL 5 MG TABLET PO (08:12)
[2021-01-29] MEDS: Benztropine Mesylate 1 MG TABLET PO (08:13)
[2021-01-29] MEDS: VerapamiL HCL SR 240 MG TABLET.ER PO (08:13)
[2021-01-29] MEDS: LORazepam 1 MG TABLET PO ×2 (08:13→20:53)
[2021-01-29] MEDS: Loratadine 10 MG TABLET PO (08:13)
[2021-01-29] MEDS: chlorproMAZINE HCl 25 MG TABLET PO ×2 (08:27→15:34)
--- NOTE | 2021-01-29 12:26 | PC.NURSE ---
PT gave this RN her necklace, states she broke it and cut with it becuase the voices were telling her to kill herself. Superficial cut noted to left arm. PT asking for medicaiton. Provider aware, pt to be medicated.
[2021-01-29] MEDS: Nicotine 21 MG PATCH.TD24 TRANSDERMA (12:28)
[2021-01-29] MEDS: HaloperidoL 5 MG TABLET PO (12:28)
[2021-01-29] MEDS: LORazepam 1 MG TABLET 2 MG PO (16:51)
--- NOTE | 2021-01-29 16:54 | PC.NURSE ---
Pt reporting hearing voices telling her to hurt herself, pt tearful states that she has not felt this bad in a long time, states the medication has not been helping and she is having a hard time, pt requested medication for anxiety, medicated per EMAR. PT laying in bed, agrees to contact staff if she feels unsafe.
[2021-01-29 17:04] VITALS: BP 127/78; PULSE 115; RESP 17; TEMP 36.9; O2SAT 97
--- NOTE | 2021-01-29 19:33 | PC.NURSE ---
Report received. PT complaining of nausea after vomiting in bed. PT requested octaviano yudelka and crackers. Nurse will continue to monitor. PT is inpatient bed search.
[2021-01-29] MEDS: traZODone HCL 50 MG TABLET 150 MG PO (20:53)
--- NOTE | 2021-01-30 00:01 | PC.NURSE ---
PT complaining of SI. Requesting PRN thorazine.
[2021-01-30] MEDS: chlorproMAZINE HCl 25 MG TABLET PO ×3 (00:12→20:24)
[2021-01-30 01:43] VITALS: BP 110/66; PULSE 92; RESP 17; TEMP 35.9; O2SAT 94
--- NOTE | 2021-01-30 07:04 | PC.NURSE ---
Report received. PT currently sleeping, respirations even and unlabored, in no apaprent distress. Pt is inpatient bedsearch.
[2021-01-30 09:50] VITALS: BP 133/88; PULSE 107; RESP 16; TEMP 37; O2SAT 97
[2021-01-30 09:53] VITALS: BP 133/88; PULSE 107
[2021-01-30] MEDS: Montelukast Sodium 10 MG TABLET PO (09:53)
[2021-01-30] MEDS: lisinopriL 5 MG TABLET PO (09:53)
[2021-01-30] MEDS: Doxazosin Mesylate 1 MG TABLET PO (09:53)
[2021-01-30] MEDS: Benztropine Mesylate 1 MG TABLET PO (09:53)
[2021-01-30] MEDS: LORazepam 1 MG TABLET PO ×2 (09:53→20:12)
[2021-01-30] MEDS: VerapamiL HCL SR 240 MG TABLET.ER PO (09:53)
[2021-01-30] MEDS: Loratadine 10 MG TABLET PO (09:53)
[2021-01-30] MEDS: metFORMIN HCl 500 MG TABLET PO ×2 (09:54→20:12)
[2021-01-30] MEDS: Atorvastatin Calcium 10 MG TABLET PO (09:54)
--- NOTE | 2021-01-30 11:31 | PC.NURSE ---
[facility] clinician Duke called and stated that PT has the potential for discharge tomorrow, he states that her staff wants to wait until tomorrow to ensure they have a safety plan in place.
--- NOTE | 2021-01-30 12:38 | PC.NURSE ---
Pt reporting SI with CAH to bang head and hit self. Pt currently sitting in bed, tearful, but calm. Eating lunch. Will continue to monitor.
--- NOTE | 2021-01-30 13:11 | PC.NURSE ---
Pt asleep at current, no signs of distress, RR even and unlabored.
[2021-01-30] MEDS: LORazepam 1 MG TABLET 2 MG PO (15:10)
--- NOTE | 2021-01-30 16:05 | PC.NURSE ---
Rest resting in bed at current, no complaints at this time, calm and cooperative.
[2021-01-30 16:11] VITALS: BP 122/70; PULSE 90; RESP 17; TEMP 36.3; O2SAT 96
--- NOTE | 2021-01-30 17:55 | PC.NURSE ---
Pt sitting in bed, eating dinner, calm, no complaints at this time.
--- NOTE | 2021-01-30 18:58 | PC.NURSE ---
Report received. PT is sleeping in bed. Respirations even and unlabored. PT is inpatient bed search.
[2021-01-30] MEDS: traZODone HCL 50 MG TABLET 150 MG PO (20:11)
[2021-01-30 23:51] VITALS: BP 116/57; PULSE 83; RESP 18; TEMP 36; O2SAT 93
--- NOTE | 2021-01-31 07:15 | PC.NURSE ---
Report received from WALKER Henao. Pt resting, resp unlabored.
[2021-01-31 08:20] VITALS: BP 119/74; PULSE 84; RESP 16; TEMP 36.2; O2SAT 95
[2021-01-31 08:20] LABS: Glucose, Whole Blood 102 mg/dL (60-115)
[2021-01-31] MEDS: Montelukast Sodium 10 MG TABLET PO (08:20)
[2021-01-31 08:21] VITALS: BP 119/74; PULSE 84
[2021-01-31] MEDS: VerapamiL HCL SR 240 MG TABLET.ER PO (08:21)
[2021-01-31 08:22] VITALS: BP 119/74; PULSE 84
[2021-01-31] MEDS: lisinopriL 5 MG TABLET PO (08:22)
[2021-01-31 08:23] VITALS: BP 119/74; PULSE 84
[2021-01-31] MEDS: metFORMIN HCl 500 MG TABLET PO ×2 (08:23→20:00)
[2021-01-31] MEDS: Doxazosin Mesylate 1 MG TABLET PO (08:23)
[2021-01-31] MEDS: Atorvastatin Calcium 10 MG TABLET PO (08:24)
[2021-01-31] MEDS: Benztropine Mesylate 1 MG TABLET PO (08:24)
[2021-01-31] MEDS: LORazepam 1 MG TABLET PO ×2 (08:24→20:00)
[2021-01-31] MEDS: Loratadine 10 MG TABLET PO (08:25)
[2021-01-31] MEDS: Fluticasone Propionate 250 MCG BLST.W.DEV 1 PUFF INHALE ×2 (08:25→19:56)
--- NOTE | 2021-01-31 09:40 | PC.NURSE ---
Pt reports difficult weekend w/ frequent thoughts of SI and self harm. Pt reports she was able to maintain safety with the use of medications.
[2021-01-31] MEDS: chlorproMAZINE HCl 25 MG TABLET PO ×2 (11:05→20:00)
--- NOTE | 2021-01-31 11:08 | PC.NURSE ---
Pt awake, reporting increased anxiety, AH. Reviewed various coping strategies w/ pt, pt declined but stated she felt medication and warm blanket might be helpful- given as requested.
--- NOTE | 2021-01-31 12:21 | PC.NURSE ---
Pt awake, reports some effect from Thorazine, was able to sleep whi ch she states was helpful.
[2021-01-31 14:00] VITALS: RESP 20
--- NOTE | 2021-01-31 14:15 | PC.NURSE ---
Pt out of bed, stating that she did not want to wait any longer, stating that it was worse for her to be in the pod 'i'm in my head all the time, it makes things worse.' Reviewed coping resources w/ pt, pt declined them. Pt offered coloring paper and crayons but stated that she used them to write a note to staff stating that she had urges to hurt herself- pt states that these urges 'come and go' and that she does not have them currently.
[2021-01-31 16:49] VITALS: BP 130/85; PULSE 79; RESP 16; TEMP 36.4; O2SAT 97
--- NOTE | 2021-01-31 17:58 | PC.NURSE ---
Pt awake, out of bed at times, affect depressed, conversing w/ staff occasionally.
--- NOTE | 2021-01-31 19:15 | PC.NURSE ---
Patient calm and quiet, wandering in hallway, mood depressed affect congruent to mood, no distress reported at this time, will continue to monitor.
[2021-01-31] MEDS: traZODone HCL 50 MG TABLET 150 MG PO (20:00)
[2021-02-01] VITALS (7 sets, daily range): BP systolic 107–125; BP diastolic 71–84; PULSE 102–110; RESP 16–20; TEMP 36.4–36.7; O2SAT 95–96
--- NOTE | 2021-02-01 07:22 | PC.NURSE ---
Report received from WALKER Glibert. Pt resting, resp unlabored.
[2021-02-01 07:27] LABS: Glucose, Whole Blood 94 mg/dL (60-115)
[2021-02-01] MEDS: metFORMIN HCl 500 MG TABLET PO (08:23)
[2021-02-01] MEDS: LORazepam 1 MG TABLET PO (08:23)
[2021-02-01] MEDS: Fluticasone Propionate 250 MCG BLST.W.DEV 1 PUFF INHALE (08:23)
[2021-02-01] MEDS: Montelukast Sodium 10 MG TABLET PO (08:23)
[2021-02-01] MEDS: Loratadine 10 MG TABLET PO (08:23)
[2021-02-01] MEDS: Benztropine Mesylate 1 MG TABLET PO (08:23)
[2021-02-01] MEDS: Atorvastatin Calcium 10 MG TABLET PO (08:23)
--- NOTE | 2021-02-01 08:40 | PC.NURSE ---
Reviewed POC and vital signs w/ K Jaxon. BP medications held at this time.
[2021-02-01] MEDS: Ibuprofen 600 MG TABLET PO (09:29)
--- NOTE | 2021-02-01 11:32 | PC.NURSE ---
Pt conversing w/ staff at times, affect depressed, states she is 'feeling better' today. Pt wanting to be discharged but states that she 'doesn't remember' taking overdose of tylenol.
[2021-02-01] MEDS: VerapamiL HCL SR 240 MG TABLET.ER PO (11:51)
--- NOTE | 2021-02-01 11:56 | PC.NURSE ---
Reviewed current vital signs w/ K Jaxon- pt given verapamil only, other medications held per discussion.
--- NOTE | 2021-02-01 12:27 | PC.NURSE ---
Per CARE team, pt was discharged from [facility] service and may be discharged back to [facility]. Called [facility] [phone] and spoke w/ Toni Pittman, who stated that [facility] is ready to receive pt. Spoke w/ Sintia Coates, requesting to speak to CARE team. Tati, from CARE team aware. Pt denies SI, states she has a safety plan- has given her staff at [facility] her money so that she is unable to purchase anything without review by staff.
--- NOTE | 2021-02-01 15:29 | PC.NURSE ---
Pt anxious re: discharge. Discussed w/ provider and care team. CARE team will assume bedsearch. ? Psych consult in AM to review readiness for discharge. Pt aware.
[2021-02-01] MEDS: LORazepam 1 MG TABLET 2 MG PO (16:05)
--- NOTE | 2021-02-01 16:07 | PC.NURSE ---
Chino Nye in to evaluate
--- NOTE | 2021-02-01 16:19 | P.EN_ITS ---
Event Note Date of Service: 02/01/21 Event Note: Psychiatry note: Patient seen at the request of ED provider following clearance from crisis eval team. Patient presented to ED on 01/26 following Tylenol OD. Did not require medical admission. Initially was expressing SI and AH, though as the days passed this decreased and at time of interview patient reported she was not having thoughts of self harm. Patient reported to this screen writer that she has a long history of PTSD and dissociation and feels this is what occured when she took the overdose. She was future oriented, discussing her scheduled therapy appt tmrw, plans with her friends, and safety planning with her residence--including checking in when she is having suicidal or self harming thoughts and having them hold onto her money so she can not impulsively buy Tylenol. Based on patient's history of borderline personality disorder, history of admi ssions at [facility] (which have significantly decreased in frequency), supervised living environment, scheduled therapy appt and patient expressing desire to be discharged home, patient much lower risk at this time. Discussed with RN and ED provider. Encouraged patient to seek out staff at her nursing home and process recent events with therapist tmrw.
--- NOTE | 2021-02-01 16:34 | PC.NURSE ---
Pt seen by Chino Boudreaux- per Chino Nye and Sintia Coates, Pt able to identify safety plans. Called Adina at [facility] to discuss pt safety plan: pt states she will give money to staff so she cannot buy anything impulsively, and pt contracts to speak to staff and friend if she needs help managing her feelings. Pt states she is feeling safe to be discharged, affect bright.
== END 2021-02-01 16:55 | disposition home or self-care (01) ==
PROVIDERS: Emergency Provider Emergency Medicine; PCP Internal Medicine
DX: R44.0 Auditory hallucinations (principal); T39.1X2A Poisoning by 4-Aminophenol derivatives, intentional self-harm, initial encounter; R00.0 Tachycardia, unspecified; Y92.042 Bedroom in boarding-house as the place of occurrence of the external cause; R11.2 Nausea with vomiting, unspecified; Z20.822 Contact with and (suspected) exposure to COVID-19; F41.9 Anxiety disorder, unspecified; F32.9 Major depressive disorder, single episode, unspecified; F43.10 Post-traumatic stress disorder, unspecified; K21.9 Gastro-esophageal reflux disease without esophagitis; E78.5 Hyperlipidemia, unspecified; Z91.5 Personal history of self-harm
CPT/HCPCS: 36415; 43762; 80048; 80076; 80143; 80179; 80307; 80320; 81001; 81025; 82947; 85025; 87635; 93005; 96374; 99285; J2060

== ENCOUNTER 2021-02-12 16:21 | Emergency (ER) | payer MEDICARE, MEDICAID, SELFPAY ==
--- NOTE | 2021-02-12 16:25 | ED_ITS ---
HPI - Psych General Chief Complaint: Psychiatric Symptoms Stated Complaint: crisis Time Seen by Provider: 02/12/21 16:25 Source: patient and EMS Mode of arrival: EMS Limitations: no limitations History of Present Illness HPI Narrative: 45 yo female well known to our facility for mental health issues c/o SI, plan to OD on aspirin but did not take anything MD complaint: suicidal ideation, feels depressed and anxiety Onset (ago): day(s) Duration: constant and getting worse History of same: Yes Relieving factors: none Exacerbating factors: other (thinking about past events) Associated psychiatric symptoms: depression and suicidal ideation Associated symptoms: denies other symptoms Treatments prior to arrival: none If self harm: admits thoughts of self harm Related Data Home Medications Medication Instructions Recorded Confirmed atorvastatin 1 tab PO DAILY 01/27/21 02/12/21 benztropine 1 mg PO DAILY 01/27/21 02/12/21 chlorpromazine 1 tab PO TID PRN 01/27/21 02/12/21 docusate sodium [DOK] 1 cap PO BID PRN 01/27/21 02/12/21 doxazosin 3 mg PO BEDTIME 01/27/21 02/12/21 fluticasone propionate [Flovent 2 puff INHALATION BID 01/27/21 02/12/21 HFA] haloperidol 0.5 mg PO BID PRN 01/27/21 02/12/21 haloperidol decanoate 1 ml IM Q4W 01/27/21 02/12/21 lisinopril 1 tab PO DAILY 01/27/21 02/12/21 loratadine 1 tab PO DAILY 01/27/21 02/12/21 lorazepam 1 tab PO BID PRN 01/27/21 02/12/21 metformin 1 tab PO BID 01/27/21 02/12/21 montelukast 1 tab PO BEDTIME 01/27/21 02/12/21 trazodone 1 tab PO BEDTIME PRN 01/27/21 02/12/21 verapamil 1 tab PO BEDTIME 01/27/21 02/12/21 ferrous sulfate 1 tab PO DAILY 02/12/21 02/12/21 ibuprofen 400 mg PO Q8H PRN 02/12/21 02/12/21 nicotine (polacrilex) [Nicorette] 2 mg BUCCAL Q2-4H PRN 02/12/21 02/12/21 pantoprazole [Protonix] 40 mg PO BID 02/12/21 02/12/21 polyethylene glycol 3350 [Miralax] 17 g PO DAILY 02/12/21 02/12/21 Allergies Allergy/AdvReac Type Severity Reaction Status Date / Time Fish Containing Products Allergy Severe ANAPHYLAXIS Unverified 07/01/20 16:44 codeine [Codeine] Allergy Unknown RASH Unverified 07/01/20 16:44 penicillin V Allergy Unknown Verified 01/10/18 00:00 Penicillins Allergy Unknown RASH Unverified 07/01/20 16:44 prednisolone Allergy Unknown Verified 01/10/18 00:00 prednisone [Prednisone] Allergy Unknown RASH Unverified 07/01/20 16:44 Sulfa (Sulfonamide Allergy Unknown RASH Unverified 07/01/20 16:44 Antibiotics) [Sulfa (Sulfonamides)] ziprasidone [Geodon] Allergy Unknown Verified 01/10/18 00:00 azithromycin [AZITHROMYCIN] AdvReac Severe RASH Unverified 07/01/20 16:44 nicotine AdvReac Unknown HEART Unverified 07/01/20 16:44 PALPITATION TO NICOTINE GUM Seafood Allergy Severe ANAPHYLAXIS Uncoded 07/01/20 16:44 Codeine Phosphate Allergy Unknown Uncoded 01/10/18 00:00 From Geodon Allergy Unknown DYSURIA, Uncoded 07/01/20 16:44 RASH seafood Allergy Unknown Uncoded 01/10/18 00:00 Review of Systems Review of Systems: Constitutional : No Fever, No Chills ENT/Mouth : No Ear Pain, No Nasal Congestion, No sore throat Eyes: No Eye Pain, No Swelling, No Redness Cardiovascular : No Chest Pain, No SOB Respiratory : No Cough, No Sputum, No Dyspnea Gastrointestinal : No Nausea, No Vomiting, No Diarrhea, No Hematochezia, No Melena Genitourinary : No Dysuria, No Urinary Frequency, No Hematuria Musculoskeletal : No Myalgias Skin : No Skin Lesions, No rash Neuro : No Weakness, No Numbness, No Paresthesias, No Dizziness, No Headache Psych : positive Anxiety, positive Depression, positive S no HI Heme/Lymph: No Lymphadenopathy Endocrine : No Polyuria, No Polydipsia All other systems reviewed and are negative PMFSH Past Medical History Attestation statement: The following information was validated with the patient. Medical History Bronchitis GERD (gastroesophageal reflux disease) Hyperlipidemia Mood disorder Overdose PTSD (post-traumatic stress disorder) Social History Social History (Updated 02/12/21 @ 16:27 by Mojgan Hernandez DO) Alcohol intake: never Smoking Status: Former smoker Use of substances other than those prescribed or required for medical reasons: No Advance Directives: No Advance Directives Information Provided: No Physical Exam Vital Signs: Vital Signs: Body Mass Index 36.8 Appearance: Alert. Oriented X3. No acute distress. Eyes: Pupils equal, round and reactive to light. ENT: Pharynx normal. Neck: Normal inspection. Neck supple. CVS: Normal heart rate and rhythm. Pulses normal. Respiratory: No respiratory distress. Breath sounds normal. Abdomen: Soft and nontender. Skin: Skin warm and dry. Normal skin color. Normal skin turgor. Extremities: No lower extremity edema. No calf ttp Neuro: Oriented X 3. No motor deficit. No sensory deficit. Psych: pos anxiety and pos depression, no SI/HI Course Course Course Narrative: cleared for DC by CARE team patient feels fine declined M5 admit, she contracts for safety, stable for DC MDM - Psych MDM Narrative Medical decision making narrative: 45 yo female with mental health issues here with SI denies injury or overdose at this time will need labs, N consult Lab Data Result diagrams: 02/12/21 18:31 02/12/21 18:31 Labs: Lab Results 02/12/21 02/12/21 02/12/21 Range/Units 17:03 17:50 17:50 WBC (4.8-10.8) X10*3/uL RBC (4.20-5.50) X10*6/uL Hgb (12.0-16.0) g/dl Hct (37-47) % MCV (80-98) fL MCH (27.0-33.0) pg MCHC (31.0-35.0) g/dl RDW (11.0-16.0) % Plt Count (160-400) X10*3/uL MPV (9.4-12.3) fL Immature Gran % (Auto) (0.0-0.4) % Neut % (Auto) (45-73) % Lymph % (Auto) (20-40) % [place]ami % (Auto) (2-11) % Eos % (Auto) (0-4) % Baso % (Auto) (0-2) % Lymph # (Auto) (1.2-4.9) X10*3/uL [place] # (Auto) (0.1-1.2) X10*3/uL Eos # (Auto) (0.0-0.4) X10*3/uL Baso # (Auto) (0.0-0.2) X10*3/uL Abs Immat Gran (auto) (0.00-0.03) X10*3/uL Absolute Neuts (auto) (2.0-8.3) X10*3/uL Absolute Nucleated RBC (0.0-0.012) X10*3/uL Nucleated RBC % (auto) (0.0-0.2) /100WBC Sodium (135-145) mmol/L Potassium (3.3-5.1) mmol/L Chloride (96-108) mmol/L Carbon Dioxide (22-29) mmol/L Anion Gap (12-20) BUN (9-16) mg/dL Creatinine (0.5-1.4) mg/dL Estim Creat Clear Calc Estimated GFR Random Glucose (60-115) mg/dL Calcium (8.4-10.2) mg/dL Total Bilirubin (0.0-1.0) mg/dL Direct Bilirubin (0.0-0.5) mg/dL AST (5-31) U/L ALT (0-31) U/L Alkaline Phosphatase (39-117) U/L Total Protein (6.5-8.0) g/dL Albumin (3.5-5.0) g/dL Urine Color STRAW Urine Appearance CLEAR Urine pH 6.0 (5.0-8.0) Ur Specific Mancos <= 1.005 (1.005-1.025) Urine Protein NEG (NEG-TRACE) MG/DL Urine Glucose (UA) NEG (NEG) MG/DL Urine Ketones NEG (NEG) MG/DL Urine Blood NEG (NEG) Urine Nitrite NEG (NEG) Ur Leukocyte Esterase NEG (NEG) Urine Test NEGATIVE (NEGATIVE) COVID-19 (NICK) Negative (Negative) COVID-19 Clin Com See Note 02/12/21 02/12/21 Range/Units 18:31 18:31 WBC 7.3 (4.8-10.8) X10*3/uL RBC 3.92 L (4.20-5.50) X10*6/uL Hgb 11.6 L (12.0-16.0) g/dl Hct 35.4 L (37-47) % MCV 90.3 (80-98) fL MCH 29.6 (27.0-33.0) pg MCHC 32.8 (31.0-35.0) g/dl RDW 13.7 (11.0-16.0) % Plt Count 231 (160-400) X10*3/uL MPV 9.9 (9.4-12.3) fL Immature Gran % (Auto) 0.1 (0.0-0.4) % Neut % (Auto) 63.9 (45-73) % Lymph % (Auto) 28.5 (20-40) % [place] % (Auto) 4.6 (2-11) % Eos % (Auto) 2.5 (0-4) % Baso % (Auto) 0.4 (0-2) % Lymph # (Auto) 2.1 (1.2-4.9) X10*3/uL [place] # (Auto) 0.3 (0.1-1.2) X10*3/uL Eos # (Auto) 0.2 (0.0-0.4) X10*3/uL Baso # (Auto) 0.0 (0.0-0.2) X10*3/uL Abs Immat Gran (auto) 0.01 (0.00-0.03) X10*3/uL Absolute Neuts (auto) 4.7 (2.0-8.3) X10*3/uL Absolute Nucleated RBC 0.000 (0.0-0.012) X10*3/uL Nucleated RBC % (auto) 0.0 (0.0-0.2) /100WBC Sodium 138 (135-145) mmol/L Potassium 3.4 (3.3-5.1) mmol/L Chloride 105 (96-108) mmol/L Carbon Dioxide 20 L (22-29) mmol/L Anion Gap 16 (12-20) BUN 9 (9-16) mg/dL Creatinine 0.86 (0.5-1.4) mg/dL Estim Creat Clear Calc 98.9 Estimated GFR > 60 Random Glucose 195 H D (60-115) mg/dL Calcium 9.0 (8.4-10.2) mg/dL Total Bilirubin 0.3 (0.0-1.0) mg/dL Direct Bilirubin < 0.2 (0.0-0.5) mg/dL AST 12 (5-31) U/L ALT 14 (0-31) U/L Alkaline Phosphatase 86 (39-117) U/L Total Protein 6.4 L (6.5-8.0) g/dL Albumin 4.1 (3.5-5.0) g/dL Urine Color Urine Appearance Urine pH (5.0-8.0) Ur Specific Mancos (1.005-1.025) Urine Protein (NEG-TRACE) MG/DL Urine Glucose (UA) (NEG) MG/DL Urine Ketones (NEG) MG/DL Urine Blood (NEG) Urine Nitrite (NEG) Ur Leukocyte Esterase (NEG) Urine Test (NEGATIVE) COVID-19 (NICK) (Negative) COVID-19 Clin Com Discharge Plan Discharge Clinical Impression: Depression Qualifiers: Depression Type: other depression Qualified Code(s): F32.89 - Other specified depressive episodes Patient Disposition: Home, Self-Care Instructions: Depression (ED) Additional Instructions: return to ED for any worsening symptoms or concerns if you feel unsafe at all please return Prescriptions: No Action haloperidol 0.5 mg tablet 0.5 mg PO BID PRN (Reason: Agitation) RF: 0 metformin 500 mg tablet 1 tab PO BID RF: 0 atorvastatin 10 mg tablet 1 tab PO DAILY RF: 0 doxazosin 1 mg tablet 3 mg PO BEDTIME RF: 0 haloperidol decanoate 100 mg/mL solution 1 ml IM Q4W RF: 0 trazodone 150 mg tablet 1 tab PO BEDTIME PRN (Reason: Insomnia) RF: 0 chlorpromazine 25 mg tablet 1 tab PO TID PRN (Reason: Agitation) RF: 0 benztropine 1 mg tablet 1 mg PO DAILY RF: 0 docusate sodium [DOK] 100 mg capsule 1 cap PO BID PRN (Reason: constipation) RF: 0 verapamil 240 mg tablet extended release 1 tab PO BEDTIME RF: 0 montelukast 10 mg tablet 1 tab PO BEDTIME RF: 0 lisinopril 5 mg tablet 1 tab PO DAILY RF: 0 lorazepam 1 mg tablet 1 tab PO BID PRN (Reason: Anxiety) RF: 0 loratadine 10 mg tablet 1 tab PO DAILY RF: 0 Flovent HFA 110 mcg/actuation HFA aerosol inhaler 2 puff inhalation BID RF: 0 polyethylene glycol 3350 [Miralax] 17 gram Powder In Packet 17 g PO DAILY RF: 0 pantoprazole [Protonix] 40 mg Tablet,Delayed Release (Dr/Ec) 40 mg PO BID RF: 0 ibuprofen 400 mg Tablet 400 mg PO Q8H PRN (Reason: Pain) RF: 0 ferrous sulfate 325 mg (65 mg iron) tablet,delayed release (DR/EC) 1 tab PO DAILY RF: 0 nicotine (polacrilex) [Nicorette] 2 mg Lozenge 2 mg BUCCAL Q2-4H PRN (Reason: Nicotine Cravings) RF: 0
[2021-02-12 16:39] VITALS: BP 122/84; PULSE 105; O2SAT 98; BMI 36.8
[2021-02-12] MEDS: LORazepam 1 MG TABLET PO (16:51)
[2021-02-12 18:06] LABS: Glucose Urine UA NEG (NEG); Leukocyte Esterase Urine NEG (NEG); Nitrite Urine NEG (NEG); Specific Gravity - Urine <= 1.005 (1.005-1.025); Urine Blood NEG (NEG); Urine Ketones NEG (NEG); Urine Protein NEG (NEG-TRACE)
[2021-02-12] MEDS: chlorproMAZINE HCl 25 MG TABLET PO (18:07)
[2021-02-12 18:08] LABS: Appearance Urine CLEAR; Color Urine STRAW
[2021-02-12 18:09] LABS: UPreg QC Valid YES; Urine Pregnancy NEGATIVE (NEGATIVE)
[2021-02-12 18:23] LABS: COVID-19 Test Negative (Negative); IDNOW Serial# 08D9AD1C
[2021-02-12 18:35] LABS: MANUAL DIFF FLAG NO
[2021-02-12 18:36] LABS: Basophils Percent Auto 0.4 % (0-2); Eosinophils Absolute Auto 0.2 X10*3/uL (0.0-0.4); Eosinophils Percent Auto 2.5 % (0-4); Hematocrit 35.4 % (37-47); Hemoglobin 11.6 g/dl (12.0-16.0); Imm Gran Abs Auto 0.01 X10*3/uL (0.00-0.03); Imm Gran Pct Auto 0.1 % (0.0-0.4); Lymphocytes Absolute Auto 2.1 X10*3/uL (1.2-4.9); Lymphocytes Percent Auto 28.5 % (20-40); Mean Corpuscular HGB Conc 32.8 g/dl (31.0-35.0); Mean Corpuscular Hemoglobin 29.6 pg (27.0-33.0); Mean Corpuscular Volume 90.3 fL (80-98); Mean Platelet Volume 9.9 fL (9.4-12.3); Monocytes Absolute Auto 0.3 X10*3/uL (0.1-1.2); Monocytes Percent Auto 4.6 % (2-11); Neutrophils Absolute Auto 4.7 X10*3/uL (2.0-8.3); Neutrophils Percent Auto 63.9 % (45-73); Platelet Count 231 X10*3/uL (160-400); Red Blood Count 3.92 X10*6/uL (4.20-5.50); Red Cell Distribution Width 13.7 % (11.0-16.0); White Blood Count 7.3 X10*3/uL (4.8-10.8)
--- NOTE | 2021-02-12 18:43 | MHC.CARE ---
CARE team met with pt, who had arrived via ambulance after calling EMS endorsing suicidal ideation with plan to overdose with aspirin. Pt reported that she feels that her current medication regimen has been overall effective, however she finds that the week or two before she receives her monthly haloperidol decanoate IM she is experiencing increased thoughts of suicide and impulsivity. Pt's next injection is scheduled for 02/16/21. Pt reported that she is feeling better now because of the medications she was given since arrival, which she noted were her PRNs haldol, ativan, and thorazine. This lyric writer spoke with pt about her PRNs, asking if she is able to notice when she is beginning to experience a shift in her mood/thoughts/behavior so she can request her PRN medications from long term staff. Pt and this lyric writer discussed how pt's ED presentations are typically mid-late afternoon, which pt acknowledged that most of her trauma happened at night. It was recommended that pt try to do a check in with herself in early afternoon to gauge how she's feeling and to utilize PRNs, coping skills, and supports if needed in order to deter a visit to the hospital. Pt denied experiencing any thoughts of suicide or urge to engage in self harm at this time and is requesting to return home with the plan to use her weighted blanket and watch mystery shows until she goes to sleep. This lyric writer spoke with ED attending physician re: conversation with pt who agreed with plan to discharge pt home. A lyft will be requested to transport pt home from the hospital.
[2021-02-12 18:59] LABS: Alanine Aminotransferase 14 U/L (0-31); Albumin Level 4.1 g/dL (3.5-5.0); Alkaline Phosphatase 86 U/L (39-117); Anion Gap 16 (12-20); Aspartate Amino Transferase 12 U/L (5-31); Bilirubin Direct < 0.2 mg/dL (0.0-0.5); Bilirubin Total 0.3 mg/dL (0.0-1.0); Blood Urea Nitrogen 9 mg/dL (9-16); Carbon Dioxide 20 mmol/L (22-29); Chloride 105 mmol/L (96-108); Creatinine Clr Calc Pharmacy 98.9; Estimated Glomerular Filt Rate > 60; Glucose Random 195 mg/dL (60-115); Potassium 3.4 mmol/L (3.3-5.1); Sodium 138 mmol/L (135-145); Total Protein 6.4 g/dL (6.5-8.0)
--- NOTE | 2021-02-12 19:11 | PC.NURSE ---
Report received. PT is asking to be discharged. Waiting for discharge orders from provider.
== END 2021-02-12 19:41 | disposition home or self-care (01) ==
PROVIDERS: Emergency Provider Emergency Medicine; PCP Internal Medicine
DX: F33.1 Major depressive disorder, recurrent, moderate (principal); R45.851 Suicidal ideations; Z79.899 Other long term (current) drug therapy; Z87.891 Personal history of nicotine dependence; Z20.822 Contact with and (suspected) exposure to COVID-19
CPT/HCPCS: 36415; 80048; 80076; 81003; 81025; 85025; 87635; 96372; 99285

== ENCOUNTER 2021-02-13 07:03 | Emergency (ER) | payer MEDICARE, MEDICAID, SELFPAY ==
[2021-02-13 07:19] VITALS: BP 117/68; PULSE 98; RESP 18; TEMP 36.6; O2SAT 97; BMI 36.8
--- NOTE | 2021-02-13 07:28 | ED.PSYCH ---
HPI - Psych General Chief Complaint: Psychiatric Symptoms Stated Complaint: crisis Time Seen by Provider: 02/13/21 07:24 Source: patient and EMS Mode of arrival: EMS Limitations: no limitations History of Present Illness HPI Narrative: This is a 45-year-old female well known to our facility with frequent ED visits and psych evaluation, last visit was for similar complaint of feeling depressed and suicidal by overdosing on aspirin, was yesterday patient was cleared and was sent home, patient woke up this morning feeling the same lying depressed and feeling to overdose on aspirin, patient did not have aspirin at home but was going to the store to buy aspirin but patient opted to call 911 come to the hospital seeking for help. Related Data Home Medications Medication Instructions Recorded Confirmed atorvastatin 1 tab PO DAILY 01/27/21 02/12/21 benztropine 1 mg PO DAILY 01/27/21 02/12/21 chlorpromazine 1 tab PO TID PRN 01/27/21 02/12/21 docusate sodium [DOK] 1 cap PO BID PRN 01/27/21 02/12/21 doxazosin 3 mg PO BEDTIME 01/27/21 02/12/21 fluticasone propionate [Flovent 2 puff INHALATION BID 01/27/21 02/12/21 HFA] haloperidol 0.5 mg PO BID PRN 01/27/21 02/12/21 haloperidol decanoate 1 ml IM Q4W 01/27/21 02/12/21 lisinopril 1 tab PO DAILY 01/27/21 02/12/21 loratadine 1 tab PO DAILY 01/27/21 02/12/21 lorazepam 1 tab PO BID PRN 01/27/21 02/12/21 metformin 1 tab PO BID 01/27/21 02/12/21 montelukast 1 tab PO BEDTIME 01/27/21 02/12/21 trazodone 1 tab PO BEDTIME PRN 01/27/21 02/12/21 verapamil 1 tab PO BEDTIME 01/27/21 02/12/21 ferrous sulfate 1 tab PO DAILY 02/12/21 02/12/21 ibuprofen 400 mg PO Q8H PRN 02/12/21 02/12/21 nicotine (polacrilex) [Nicorette] 2 mg BUCCAL Q2-4H PRN 02/12/21 02/12/21 pantoprazole [Protonix] 40 mg PO BID 02/12/21 02/12/21 polyethylene glycol 3350 [Miralax] 17 g PO DAILY 02/12/21 02/12/21 Allergies Allergy/AdvReac Type Severity Reaction Status Date / Time Fish Containing Products Allergy Severe ANAPHYLAXIS Unverified 07/01/20 16:44 codeine [Codeine] Allergy Unknown RASH Unverified 07/01/20 16:44 penicillin V Allergy Unknown Verified 01/10/18 00:00 Penicillins Allergy Unknown RASH Unverified 07/01/20 16:44 prednisolone Allergy Unknown Verified 01/10/18 00:00 prednisone [Prednisone] Allergy Unknown RASH Unverified 07/01/20 16:44 Sulfa (Sulfonamide Allergy Unknown RASH Unverified 07/01/20 16:44 Antibiotics) [Sulfa (Sulfonamides)] ziprasidone [Geodon] Allergy Unknown Verified 01/10/18 00:00 azithromycin [AZITHROMYCIN] AdvReac Severe RASH Unverified 07/01/20 16:44 nicotine AdvReac Unknown HEART Unverified 07/01/20 16:44 PALPITATION TO NICOTINE GUM Seafood Allergy Severe ANAPHYLAXIS Uncoded 07/01/20 16:44 Codeine Phosphate Allergy Unknown Uncoded 01/10/18 00:00 From Geodon Allergy Unknown DYSURIA, Uncoded 07/01/20 16:44 RASH seafood Allergy Unknown Uncoded 01/10/18 00:00 Review of Systems Review of Systems: All other systems are reviewed and are negative Constitutional: Reports as per HPI and Reports no additional constitutional complaints Eyes: Reports as per HPI and Reports no additional eye complaints Reports system reviewed and no additional complaints, except as documented Cardiovascular: Reports as per HPI and Reports no additional cardiovascular complaints Respiratory: Reports as per HPI and Reports no additional respiratory complaints Gastrointestinal: Reports as per HPI and Reports no additional gastrointestinal complaints Genitourinary: Reports no additional female genitourinary complaints Musculoskeletal: Reports no additional musculoskeletal complaints Skin/Breast: Reports system reviewed and no additional complaints, except as docu Psychiatric: Reports no additional psychiatric complaints Endocrine: Reports no additional endocrine complaints Hematologic/Lymphatic: Reports no additional hematologic/lymphatic complaints Allergic/Immunologic: Reports no additional allergic/immunologic complaints Reports system reviewed and no additional complaints, except as documented and Reports Abnormal speech present [facility] Past Medical History Medical History Bronchitis GERD (gastroesophageal reflux disease) Hyperlipidemia Mood disorder Overdose PTSD (post-traumatic stress disorder) Social History Social History Alcohol intake: never Smoking Status: Former smoker Advance Directives: No Advance Directives Information Provided: No Physical Exam Vital Signs: Vital Signs: Last Vital Signs Temp 97.8 F 02/13/21 07:19 Pulse 98 02/13/21 07:19 Resp 18 02/13/21 07:19 BP 117/68 02/13/21 07:19 Pulse Ox 97 02/13/21 07:19 Body Mass Index 36.8 Vital signs have been reviewed as appeared to be correct. Blood pressure normal. Heart rate normal. Respiration rate normal. Temperature normal. Oxygen saturation normal. Appearance: Alert. Oriented X3. No acute distress. Head: Normal external exam. Normocephalic. Atraumatic. No Harper signs noted. No raccoon eyes noted Eyes: PERRLA. EOMI. Conjunctiva and sclera normal. Eyelids normal. ENT: TM's Normal. Pharynx normal. Uvula midline. Moist mucous membranes. No trismus noted. No drooling noted. No muffled voice noted. Neck: Normal inspection. Neck supple. FROM. No adenopathy. Thyroid Normal. No meningeal signs. No neck mass noted. CVS: Normal heart rate and rhythm. Heart sound normal. No murmurs noted. Pulses normal throughout. Respiratory: No respiratory distress. Painless inspiration. Breath sounds normal. No wheezes/rales/rhonchi noted. Chest nontender. No accessory muscle usage noted or decreased air movement noted. Abdomen: Soft and nontender. Bowel sounds normal in all 4 quadrants. No distention noted. No organomegaly noted. No visible injury noted. Back: No CVA tenderness. Full range of motion noted. Skin: Skin warm and dry. Normal skin color. Normal skin turgor. No rashes/lesions/lacerations noted. Extremities: No lower extremity edema. Extremities exhibit normal range of motion. Extremities nontender. Neuro: Oriented X 3. No motor deficit. No sensory deficit. Reflexes normal. Patient Appearance: Appropriate Patient Orientation: Person, Place, Time and Situation Level of Consciousness: Awake, Appropriate and Alert Patient Behavior: Talkative, Cooperative. Mood Description: Depressed. Affect Description: Flat. Patient Cognition Impaired: No Ability to Follow Directions: Good Speech Pattern: Spontaneous Speech Memory Description: Intact Hallucinations: Not present. Delusions: Not Present Thought Process: Non logical Thought Content: Unremarkable Depressive Symptoms: Increased anxiety. Judgement: Poor. Course Course Course Narrative: 45-year-old female well known to this facility with frequent ED visits for psych/mental issue. Patient came in today with suicidal thoughts, that has improved while she is in the emergency room, patient was evaluated by N no concern for a serious suicide ideation at this point, at this point patient is not suicidal or homicidal feels slightly anxious but would like to go back to the half-way. Discharge Plan Discharge Clinical Impression: Depression Qualifiers: Depression Type: other depression Qualified Code(s): F32.89 - Other specified depressive episodes Patient Disposition: Home, Self-Care Instructions: Depression (ED) Prescriptions: No Action haloperidol 0.5 mg tablet 0.5 mg PO BID PRN (Reason: Agitation) RF: 0 metformin 500 mg tablet 1 tab PO BID RF: 0 atorvastatin 10 mg tablet 1 tab PO DAILY RF: 0 doxazosin 1 mg tablet 3 mg PO BEDTIME RF: 0 haloperidol decanoate 100 mg/mL solution 1 ml IM Q4W RF: 0 trazodone 150 mg tablet 1 tab PO BEDTIME PRN (Reason: Insomnia) RF: 0 chlorpromazine 25 mg tablet 1 tab PO TID PRN (Reason: Agitation) RF: 0 benztropine 1 mg tablet 1 mg PO DAILY RF: 0 docusate sodium [DOK] 100 mg capsule 1 cap PO BID PRN (Reason: constipation) RF: 0 verapamil 240 mg tablet extended release 1 tab PO BEDTIME RF: 0 montelukast 10 mg tablet 1 tab PO BEDTIME RF: 0 lisinopril 5 mg tablet 1 tab PO DAILY RF: 0 lorazepam 1 mg tablet 1 tab PO BID PRN (Reason: Anxiety) RF: 0 loratadine 10 mg tablet 1 tab PO DAILY RF: 0 Flovent HFA 110 mcg/actuation HFA aerosol inhaler 2 puff inhalation BID RF: 0 polyethylene glycol 3350 [Miralax] 17 gram Powder In Packet 17 g PO DAILY RF: 0 pantoprazole [Protonix] 40 mg Tablet,Delayed Release (Dr/Ec) 40 mg PO BID RF: 0 ibuprofen 400 mg Tablet 400 mg PO Q8H PRN (Reason: Pain) RF: 0 ferrous sulfate 325 mg (65 mg iron) tablet,delayed release (DR/EC) 1 tab PO DAILY RF: 0 nicotine (polacrilex) [Nicorette] 2 mg Lozenge 2 mg BUCCAL Q2-4H PRN (Reason: Nicotine Cravings) RF: 0 Referrals: Michelle Norris MD [Primary Care Provider] - 2 days
--- NOTE | 2021-02-13 08:52 | PC.NURSE ---
Called and faxed to [facility], Called and confirmed N recieved Fax.
--- NOTE | 2021-02-13 12:32 | PC.NURSE ---
pt states she is likely to be discharged and doesn't need thorazine any more. i'm feeling better
== END 2021-02-13 12:55 | disposition home or self-care (01) ==
PROVIDERS: Emergency Provider Emergency Medicine; PCP Internal Medicine
DX: F32.89 Other specified depressive episodes (principal); R45.851 Suicidal ideations; F41.9 Anxiety disorder, unspecified; E78.5 Hyperlipidemia, unspecified; F43.10 Post-traumatic stress disorder, unspecified; Z91.5 Personal history of self-harm; Z79.02 Long term (current) use of antithrombotics/antiplatelets
CPT/HCPCS: 99283

== ENCOUNTER 2021-02-20 21:52 | Emergency (ER) | payer MEDICARE, MEDICAID, SELFPAY ==
[2021-02-20 21:58] VITALS: BP 122/88; BP 142/83; PULSE 100; PULSE 96; RESP 16; TEMP 36.5; O2SAT 96; O2SAT 98; BMI 36.8
--- NOTE | 2021-02-20 23:00 | ED.PSYCH ---
HPI - Psych General Chief Complaint: Psychiatric Symptoms Stated Complaint: Crisis,SI,Section 12 Time Seen by Provider: 02/20/21 22:00 Source: patient History of Present Illness HPI Narrative: 45-year-old female arrives via EMS with complaints of suicidal ideation and states that her plan would be to walk to [facility] and overdose on pills. She also states that she is having auditory hallucinations. Significant past medical history for diabetes, hypertension, hyperlipidemia. Otherwise, patient denies any fever, chills, GI symptoms, or symptoms. Related Data Home Medications Medication Instructions Recorded Confirmed atorvastatin 1 tab PO DAILY 01/27/21 02/20/21 benztropine 1 mg PO DAILY 01/27/21 02/20/21 chlorpromazine 1 tab PO TID PRN 01/27/21 02/20/21 docusate sodium [DOK] 1 cap PO BID PRN 01/27/21 02/20/21 doxazosin 3 mg PO BEDTIME 01/27/21 02/20/21 fluticasone propionate [Flovent 2 puff INHALATION BID 01/27/21 02/20/21 HFA] haloperidol 0.5 mg PO BID PRN 01/27/21 02/20/21 haloperidol decanoate 1 ml IM Q4W 01/27/21 02/20/21 lisinopril 1 tab PO DAILY 01/27/21 02/20/21 loratadine 1 tab PO DAILY 01/27/21 02/20/21 lorazepam 1 tab PO BID PRN 01/27/21 02/20/21 metformin 1 tab PO BID 01/27/21 02/20/21 montelukast 1 tab PO BEDTIME 01/27/21 02/20/21 trazodone 1 tab PO BEDTIME PRN 01/27/21 02/20/21 verapamil 1 tab PO BEDTIME 01/27/21 02/20/21 ferrous sulfate 1 tab PO DAILY 02/12/21 02/20/21 ibuprofen 400 mg PO Q8H PRN 02/12/21 02/20/21 nicotine (polacrilex) [Nicorette] 2 mg BUCCAL Q2-4H PRN 02/12/21 02/20/21 pantoprazole [Protonix] 40 mg PO BID 02/12/21 02/20/21 polyethylene glycol 3350 [Miralax] 17 g PO DAILY 02/12/21 02/20/21 Allergies Allergy/AdvReac Type Severity Reaction Status Date / Time Fish Containing Products Allergy Severe ANAPHYLAXIS Unverified 07/01/20 16:44 codeine [Codeine] Allergy Unknown RASH Unverified 07/01/20 16:44 penicillin V Allergy Unknown Verified 01/10/18 00:00 Penicillins Allergy Unknown RASH Unverified 07/01/20 16:44 prednisolone Allergy Unknown Verified 01/10/18 00:00 prednisone [Prednisone] Allergy Unknown RASH Unverified 07/01/20 16:44 Sulfa (Sulfonamide Allergy Unknown RASH Unverified 07/01/20 16:44 Antibiotics) [Sulfa (Sulfonamides)] ziprasidone [Geodon] Allergy Unknown Verified 01/10/18 00:00 azithromycin [AZITHROMYCIN] AdvReac Severe RASH Unverified 07/01/20 16:44 nicotine AdvReac Unknown HEART Unverified 07/01/20 16:44 PALPITATION TO NICOTINE GUM Seafood Allergy Severe ANAPHYLAXIS Uncoded 07/01/20 16:44 Codeine Phosphate Allergy Unknown Uncoded 01/10/18 00:00 From Geodon Allergy Unknown DYSURIA, Uncoded 07/01/20 16:44 RASH seafood Allergy Unknown Uncoded 01/10/18 00:00 Review of Systems Review of Systems: Pertinent positives and negatives as stated in HPI 10 point review systems otherwise negative. PMFSH Past Medical History Source: nursing notes reviewed Medical History Bronchitis GERD (gastroesophageal reflux disease) Hyperlipidemia Mood disorder Overdose PTSD (post-traumatic stress disorder) Social History Social History Alcohol intake: never Smoking Status: Former smoker Advance Directives: No Advance Directives Information Provided: Yes Physical Exam Vital Signs: Vital Signs: Last Vital Signs Temp 97.6 F 02/21/21 00:32 Pulse 90 02/21/21 00:32 Resp 16 02/21/21 00:32 BP 118/81 02/21/21 00:32 Pulse Ox 97 02/21/21 00:32 Body Mass Index 36.8 VITAL SIGNS: Reviewed. GENERAL: Well developed, well nourished, in no acute distress. HEAD: Normocephalic/atraumatic EYES: PERRLA, EOMI EARS: Ext canals without abnormality NOSE: Nares patent bilateral OROPHARYNX: no oral lesions noted, posterior pharynx clear NECK: Supple, no adenopathy LUNGS: Normal breath sounds. No adventitious sounds or accessory muscle use. SpO2<97> CARDIOVASCULAR: Regular rate and rhythm without noted murmurs ABDOMEN: Soft, non-tender, non-distended with bowel sounds. NEUROLOGIC: Alert and oriented x 4. PSYCH: Flat affect, calm Course Course Course Narrative: 45-year-old female with history and clinical presentation consistent with repeated visits to the emergency room for suicidal ideation. Toxicology, COVID-19 testing, one-to-one observation, and consult crisis. Review of all investigations negative for acute findings and patient is medically optimized for further evaluation by the behavioral team. Reevaluation(s) Reevaluation #1: Patient placed in physician observation because the patient needed more time for BHN evaluation. At the time observation was started the patient's vital signs were stable, patient is alert and oriented, neuro: Nonfocal, CV RRR, lungs clear Time: 00:30 MDM - Psych Lab Data Labs: Lab Results 02/20/21 02/20/21 02/20/21 Range/Units 22:35 22:35 22:35 Urine Color YELLOW Urine Appearance CLEAR Urine pH 6.0 (5.0-8.0) Ur Specific [place] 1.010 (1.005-1.025) Urine Protein NEG (NEG-TRACE) MG/DL Urine Glucose (UA) NEG (NEG) MG/DL Urine Ketones NEG (NEG) MG/DL Urine Blood NEG (NEG) Urine Nitrite NEG (NEG) Ur Leukocyte Esterase NEG (NEG) Urine Test NEGATIVE (NEGATIVE) Urine Opiates Screen Not Detected (Not Detect) Ur Barbiturates Screen Not Detected (Not Detect) Ur Phencyclidine Scrn Not Detected (Not Detect) Ur Amphetamines Screen Not Detected (Not Detect) U Benzodiazepines Scrn Not Detected (Not Detect) Urine Cocaine Screen Not Detected (Not Detect) U Marijuana (THC) Screen Not Detected (Not Detect) Ethyl Alcohol mg/dL COVID-19 (NICK) (Negative) COVID-19 Clin Com 02/20/21 02/20/21 Range/Units 23:54 23:55 Urine Color Urine Appearance Urine pH (5.0-8.0) Ur Specific [place] (1.005-1.025) Urine Protein (NEG-TRACE) MG/DL Urine Glucose (UA) (NEG) MG/DL Urine Ketones (NEG) MG/DL Urine Blood (NEG) Urine Nitrite (NEG) Ur Leukocyte Esterase (NEG) Urine Test (NEGATIVE) Urine Opiates Screen (Not Detect) Ur Barbiturates Screen (Not Detect) Ur Phencyclidine Scrn (Not Detect) Ur Amphetamines Screen (Not Detect) U Benzodiazepines Scrn (Not Detect) Urine Cocaine Screen (Not Detect) U Marijuana (THC) Screen (Not Detect) Ethyl Alcohol < 10 mg/dL COVID-19 (NICK) Negative (Negative) COVID-19 Clin Com See Note Discharge Plan Discharge Prescriptions: No Action haloperidol 0.5 mg tablet 0.5 mg PO BID PRN (Reason: Agitation) RF: 0 metformin 500 mg tablet 1 tab PO BID RF: 0 atorvastatin 10 mg tablet 1 tab PO DAILY RF: 0 doxazosin 1 mg tablet 3 mg PO BEDTIME RF: 0 haloperidol decanoate 100 mg/mL solution 1 ml IM Q4W RF: 0 trazodone 150 mg tablet 1 tab PO BEDTIME PRN (Reason: Insomnia) RF: 0 chlorpromazine 25 mg tablet 1 tab PO TID PRN (Reason: Agitation) RF: 0 benztropine 1 mg tablet 1 mg PO DAILY RF: 0 docusate sodium [DOK] 100 mg capsule 1 cap PO BID PRN (Reason: constipation) RF: 0 verapamil 240 mg tablet extended release 1 tab PO BEDTIME RF: 0 montelukast 10 mg tablet 1 tab PO BEDTIME RF: 0 lisinopril 5 mg tablet 1 tab PO DAILY RF: 0 lorazepam 1 mg tablet 1 tab PO BID PRN (Reason: Anxiety) RF: 0 loratadine 10 mg tablet 1 tab PO DAILY RF: 0 Flovent HFA 110 mcg/actuation HFA aerosol inhaler 2 puff inhalation BID RF: 0 polyethylene glycol 3350 [Miralax] 17 gram Powder In Packet 17 g PO DAILY RF: 0 pantoprazole [Protonix] 40 mg Tablet,Delayed Release (Dr/Ec) 40 mg PO BID RF: 0 ibuprofen 400 mg Tablet 400 mg PO Q8H PRN (Reason: Pain) RF: 0 ferrous sulfate 325 mg (65 mg iron) tablet,delayed release (DR/EC) 1 tab PO DAILY RF: 0 nicotine (polacrilex) [Nicorette] 2 mg Lozenge 2 mg BUCCAL Q2-4H PRN (Reason: Nicotine Cravings) RF: 0
[2021-02-20 23:02] LABS: Glucose Urine UA NEG (NEG); Leukocyte Esterase Urine NEG (NEG); Nitrite Urine NEG (NEG); Urine Blood NEG (NEG); Urine Ketones NEG (NEG); Urine Protein NEG (NEG-TRACE)
[2021-02-20 23:04] LABS: Appearance Urine CLEAR; Color Urine YELLOW
[2021-02-20 23:08] LABS: UPreg QC Valid YES; Urine Pregnancy NEGATIVE (NEGATIVE)
[2021-02-20 23:30] LABS: Amphetamine Screen Urine Not Detected (Not Detect); Barbiturates, Urine Not Detected (Not Detect); Benzodiazepines Screen Urine Not Detected (Not Detect); Cannabinoid Screen Urine Not Detected (Not Detect); Cocaine Screen Urine Not Detected (Not Detect); Opiate Screen Urine Not Detected (Not Detect); Phencyclidine Screen Urine Not Detected (Not Detect)
[2021-02-21 00:21] LABS: COVID-19 Test Negative (Negative)
[2021-02-21 00:27] LABS: Ethanol < 10 mg/dL
[2021-02-21 00:32] VITALS: BP 118/81; PULSE 90; RESP 16; TEMP 36.4; O2SAT 97
[2021-02-21 02:24] VITALS: BP 101/72; PULSE 83; RESP 16; O2SAT 96
--- NOTE | 2021-02-21 03:11 | PC.NURSE ---
FAXED AND CALLED TO [facility]
--- NOTE | 2021-02-21 05:05 | PC.NURSE ---
[facility]N AT BEDSIDE FOR EVALUATION.
--- NOTE | 2021-02-21 05:41 | PC.NURSE ---
[facility] REPORTS THAT PT IS CLEARED TO GO BACK TO HER [facility]. CALL [facility] AFTER 7PM TO SEE IF THEY WILL PICK HER UP.
[2021-02-21 05:45] VITALS: BP 108/80; PULSE 82; RESP 16; TEMP 36.7; O2SAT 96
== END 2021-02-21 08:44 | disposition home or self-care (01) ==
PROVIDERS: Emergency Provider Student in an Organized Health Care Education/Training Program
DX: F33.1 Major depressive disorder, recurrent, moderate (principal); R45.851 Suicidal ideations; Z87.891 Personal history of nicotine dependence; Z20.822 Contact with and (suspected) exposure to COVID-19; Z79.899 Other long term (current) drug therapy
CPT/HCPCS: 36415; 80307; 80320; 81003; 81025; 87635; 99284; 99285

== ENCOUNTER 2021-03-04 17:04 | Emergency (ER) | payer MEDICARE, MEDICAID, SELFPAY ==
[2021-03-04 17:27] VITALS: BP 143/87; PULSE 104; RESP 16; TEMP 37.5; O2SAT 97; BMI 36.8
--- NOTE | 2021-03-04 17:53 | ED_ITS ---
HPI - Psych General Chief Complaint: Psychiatric Symptoms Stated Complaint: crisis Time Seen by Provider: 03/04/21 17:53 Source: patient Mode of arrival: ambulatory Limitations: no limitations History of Present Illness HPI Narrative: 45-year-old female medical history of hallucinations, PTSD, mood disorder presents the emergency department with auditory and visual hallucinations and suicidal ideations. Patient admits to self-harm today admitting is superficial cutting to the upper extremities. States she does not feel safe in her detention due to these ongoing hallucinations felt she needed to be evaluated by crisis. Denies any physical complaints or concerns denies any medication she took that she was not supposed to. Denies any homicidal ideations. complaint: suicidal ideation Onset (ago): day(s) (1) Duration: constant History of same: Yes Relieving factors: none Exacerbating factors: none Associated psychiatric symptoms: depression, suicidal ideation, auditory hallucinations and visual hallucinations Associated symptoms: denies other symptoms Treatments prior to arrival: none Related Data Home Medications Medication Instructions Recorded Confirmed atorvastatin 1 tab PO BEDTIME 01/27/21 03/04/21 benztropine 1 mg PO DAILY 01/27/21 03/04/21 chlorpromazine 1 tab PO TID PRN 01/27/21 03/04/21 docusate sodium [DOK] 1 cap PO BID PRN 01/27/21 03/04/21 doxazosin 3 mg PO BEDTIME 01/27/21 03/04/21 fluticasone propionate [Flovent 2 puff INHALATION BID 01/27/21 03/04/21 HFA] haloperidol 0.5 mg PO BID PRN 01/27/21 03/04/21 haloperidol decanoate 1 ml IM Q4W 01/27/21 03/04/21 lisinopril 1 tab PO DAILY 01/27/21 03/04/21 loratadine 1 tab PO DAILY 01/27/21 03/04/21 lorazepam 1 tab PO BID PRN 01/27/21 03/04/21 metformin 1 tab PO BID 01/27/21 03/04/21 montelukast 1 tab PO BEDTIME 01/27/21 03/04/21 trazodone 1 tab PO BEDTIME PRN 01/27/21 03/04/21 verapamil 1 tab PO BEDTIME 01/27/21 03/04/21 ferrous sulfate 1 tab PO DAILY 02/12/21 03/04/21 ibuprofen 400 mg PO Q8H PRN 02/12/21 03/04/21 nicotine (polacrilex) [Nicorette] 2 mg BUCCAL Q2-4H PRN 02/12/21 03/04/21 pantoprazole [Protonix] 40 mg PO BID 02/12/21 03/04/21 polyethylene glycol 3350 [Miralax] 17 g PO DAILY 02/12/21 03/04/21 Allergies Allergy/AdvReac Type Severity Reaction Status Date / Time Fish Containing Products Allergy Severe ANAPHYLAXIS Unverified 07/01/20 16:44 codeine [Codeine] Allergy Unknown RASH Unverified 07/01/20 16:44 penicillin V Allergy Unknown Verified 01/10/18 00:00 Penicillins Allergy Unknown RASH Unverified 07/01/20 16:44 prednisolone Allergy Unknown Verified 01/10/18 00:00 prednisone [Prednisone] Allergy Unknown RASH Unverified 07/01/20 16:44 Sulfa (Sulfonamide Allergy Unknown RASH Unverified 07/01/20 16:44 Antibiotics) [Sulfa (Sulfonamides)] ziprasidone [Geodon] Allergy Unknown Verified 01/10/18 00:00 azithromycin [AZITHROMYCIN] AdvReac Severe RASH Unverified 07/01/20 16:44 nicotine AdvReac Unknown HEART Unverified 07/01/20 16:44 PALPITATION TO NICOTINE GUM Seafood Allergy Severe ANAPHYLAXIS Uncoded 07/01/20 16:44 Codeine Phosphate Allergy Unknown Uncoded 01/10/18 00:00 From Geodon Allergy Unknown DYSURIA, Uncoded 07/01/20 16:44 RASH seafood Allergy Unknown Uncoded 01/10/18 00:00 Review of Systems Review of Systems: Constitutional : No Weight loss, No Fever, No Chills, No Night Sweats, No Fatigue, No Malaise ENT/Mouth : No Hearing loss, No Ear Pain, No Nasal Congestion, No Sinus Pain, No Hoarseness, No sore throat, No Rhinorrhea, No Swallowing Difficulty Eyes: No Eye Pain, No Swelling, No Redness, No Foreign Body, No Discharge, No Vision Changes Cardiovascular : No Chest Pain, No SOB, No Dyspnea on Exertion, No Orthopnea, No Edema, No Palpitations Respiratory : No Cough, No Sputum, No Wheezing, No Smoke Exposure, No Dyspnea Gastrointestinal : No Nausea, No Vomiting, No Diarrhea, No Constipation, No abdominal Pain, No Hematochezia, No Melena Genitourinary : no irregular bleeding, No Dysuria, No Urinary Frequency, No Hematuria, No Urinary Incontinence, No Urgency, No Flank Pain, No Urinary Flow Changes, No Hesitancy Musculoskeletal : No joint pain, No Myalgias, No Joint Swelling Skin : No Skin Lesions, No rash Neuro : No Weakness, No Numbness, No Paresthesias, No Loss of Consciousness, No Dizziness, No Headache Psych :Admits to SI with auditory and visual hallucinations, Denies HI. Heme/Lymph: No Bruising, No Bleeding,No Lymphadenopathy Endocrine : No Polyuria, No Polydipsia, No Temperature Intolerance [facility] Past Medical History Attestation statement: The following information was validated with the patient. Source: old records reviewed and nursing notes reviewed Medical History Bronchitis GERD (gastroesophageal reflux disease) Hyperlipidemia Mood disorder Overdose PTSD (post-traumatic stress disorder) Social History Social History Alcohol intake: never Smoking Status: Former smoker Advance Directives: No Advance Directives Information Provided: Yes Physical Exam Vital Signs: Vital Signs: Last Vital Signs Temp 99.5 F 03/04/21 17:27 Pulse 104 H 03/04/21 17:27 Resp 16 03/04/21 17:27 BP 143/87 H 03/04/21 17:27 Pulse Ox 97 03/04/21 17:27 Body Mass Index 36.8 vital signs have been reviewed as normal and appeared to be correct. Blood pre ssure normal. Heart rate normal. Respiration rate normal. Temperature normal. Oxygen saturation normal. Appearance: Alert. Oriented X3. No acute distress. Head: Normal external exam. Normocephalic. Atraumatic. No Harper signs noted. No raccoon eyes noted Eyes: PERRLA. EOMI. Conjunctiva and sclera normal. Eyelids normal. ENT: EAC normal. TM's Normal. Pharynx normal. Uvula midline. Moist mucous membranes. No trismus noted. No drooling noted. No muffled voice noted. Neck: Normal inspection. Neck supple. FROM. No adenopathy. Thyroid Normal. No meningeal signs. No neck mass noted. CVS: Normal heart rate and rhythm. Heart sound normal. No murmurs noted. Pulses normal throughout. Respiratory: No respiratory distress. Painless inspiration. Breath sounds normal . No wheezes/rales/rhonchi noted. Chest nontender. No accessory muscle usage noted or decreased air movement noted. Abdomen: Soft and nontender. Bowel sounds normal in all 4 quadrants. No distention noted. No organomegaly noted. No visible injury noted. Back: No CVA tenderness. Full range of motion noted. Skin: Skin warm and dry. Normal skin color. Normal skin turgor. Superficial abrasions linear nature to bilateral upper extremities. No active bleeding dry blood noted. Good distal pulses and capillary refill to bilateral upper extremities. Extremities: No lower extremity edema. Extremities exhibit normal range of motion. Extremities nontender. Neuro: Oriented X 3. No motor deficit. No sensory deficit. Reflexes normal. Psych: Appearance: grossly normal Mental Status: mental status grossly normal Speech and movement: Normal speech and movement present Affect: Other affect and mood findings present (flat) Attitude: cooperative Thought content: Suicidality present Insight: Limited insight present (Psych) Judgement: Limited judgement present (Psych) Course Reevaluation(s) Reevaluation #1: Patient remains, cooperative pending crisis evaluation. Will sign care at change of shift pending formal [facility] evaluation MDM - Psych MDM Narrative Medical decision making narrative: Patient's vital signs are stable and she is afebrile. Patient presenting to the emergency department with auditory and visual hallucinations and complaints of SI states she does not feel safe with these thoughts at her detention. Also admits to superficial cutting to bilateral lower extremities to help cope with her feelings. Denies physical complaints at this time. Will refer to crisis given the above. Will continue to monitor and reassess pending their involvement. Will check basic blood work and urine tox screen to ensure the absence of acute findings. Wounds to the upper extremities are superficial nature patient states her tetanus is up -to-date no need for suture repair. Medical Records Attestation: I reviewed the patient's medical records. Lab Data Attestation: I reviewed the patient's lab results. Result diagrams: 03/04/21 19:20 03/04/21 19:20 Labs: Lab Results 05/21/21 05/21/21 05/21/21 Range/Units 18:39 19:20 19:20 WBC 8.4 (4.8-10.8) X10*3/uL RBC 4.10 L (4.20-5.50) X10*6/uL Hgb 12.2 (12.0-16.0) g/dl Hct 37.0 (37-47) % MCV 90.2 (80-98) fL MCH 29.8 (27.0-33.0) pg MCHC 33.0 (31.0-35.0) g/dl RDW 13.0 (11.0-16.0) % Plt Count 268 (160-400) X10*3/uL MPV 9.4 (9.4-12.3) fL Immature Gran % (Auto) 0.6 H (0.0-0.4) % Neut % (Auto) 70.0 (45-73) % Lymph % (Auto) 19.9 L (20-40) % Kay % (Auto) 6.4 (2-11) % Eos % (Auto) 2.6 (0-4) % Baso % (Auto) 0.5 (0-2) % Lymph # (Auto) 1.7 (1.2-4.9) X10*3/uL Kay # (Auto) 0.5 (0.1-1.2) X10*3/uL Eos # (Auto) 0.2 (0.0-0.4) X10*3/uL Baso # (Auto) 0.0 (0.0-0.2) X10*3/uL Abs Immat Gran (auto) 0.05 H (0.00-0.03) X10*3/uL Absolute Neuts (auto) 5.9 (2.0-8.3) X10*3/uL Absolute Nucleated RBC 0.000 (0.0-0.012) X10*3/uL Nucleated RBC % (auto) 0.0 (0.0-0.2) /100WBC Sodium 140 (135-145) mmol/L Potassium 3.6 (3.3-5.1) mmol/L Chloride 105 (96-108) mmol/L Carbon Dioxide 25 (22-29) mmol/L Anion Gap 14 (12-20) BUN 6 L (9-16) mg/dL Creatinine 0.75 (0.5-1.4) mg/dL Estim Creat Clear Calc 113.4 Estimated GFR > 60 Random Glucose 167 H (60-115) mg/dL Calcium 9.0 (8.4-10.2) mg/dL Total Bilirubin 0.2 (0.0-1.0) mg/dL AST 14 (5-31) U/L ALT 21 (0-31) U/L Alkaline Phosphatase 109 D (39-117) U/L Total Protein 6.5 (6.5-8.0) g/dL Albumin 4.1 (3.5-5.0) g/dL Urine Test (NEGATIVE) Urine Opiates Screen (Not Detect) Ur Barbiturates Screen (Not Detect) Ur Phencyclidine Scrn (Not Detect) Ur Amphetamines Screen (Not Detect) U Benzodiazepines Scrn (Not Detect) Urine Cocaine Screen (Not Detect) U Marijuana (THC) Screen (Not Detect) Ethyl Alcohol mg/dL COVID-19 (NICK) Negative (Negative) COVID-19 Clin Com See Note 03/04/21 03/04/21 03/04/21 Range/Units 19:20 19:25 19:25 WBC (4.8-10.8) X10*3/uL RBC (4.20-5.50) X10*6/uL Hgb (12.0-16.0) g/dl Hct (37-47) % MCV (80-98) fL MCH (27.0-33.0) pg MCHC (31.0-35.0) g/dl RDW (11.0-16.0) % Plt Count (160-400) X10*3/uL MPV (9.4-12.3) fL Immature Gran % (Auto) (0.0-0.4) % Neut % (Auto) (45-73) % Lymph % (Auto) (20-40) % Kay % (Auto) (2-11) % Eos % (Auto) (0-4) % Baso % (Auto) (0-2) % Lymph # (Auto) (1.2-4.9) X10*3/uL Kay # (Auto) (0.1-1.2) X10*3/uL Eos # (Auto) (0.0-0.4) X10*3/uL Baso # (Auto) (0.0-0.2) X10*3/uL Abs Immat Gran (auto) (0.00-0.03) X10*3/uL Absolute Neuts (auto) (2.0-8.3) X10*3/uL Absolute Nucleated RBC (0.0-0.012) X10*3/uL Nucleated RBC % (auto) (0.0-0.2) /100WBC Sodium (135-145) mmol/L Potassium (3.3-5.1) mmol/L Chloride (96-108) mmol/L Carbon Dioxide (22-29) mmol/L Anion Gap (12-20) BUN (9-16) mg/dL Creatinine (0.5-1.4) mg/dL Estim Creat Clear Calc Estimated GFR Random Glucose (60-115) mg/dL Calcium (8.4-10.2) mg/dL Total Bilirubin (0.0-1.0) mg/dL AST (5-31) U/L ALT (0-31) U/L Alkaline Phosphatase (39-117) U/L Total Protein (6.5-8.0) g/dL Albumin (3.5-5.0) g/dL Urine Test NEGATIVE (NEGATIVE) Urine Opiates Screen Not Detected (Not Detect) Ur Barbiturates Screen Not Detected (Not Detect) Ur Phencyclidine Scrn Not Detected (Not Detect) Ur Amphetamines Screen Not Detected (Not Detect) U Benzodiazepines Scrn Not Detected (Not Detect) Urine Cocaine Screen Not Detected (Not Detect) U Marijuana (THC) Screen Not Detected (Not Detect) Ethyl Alcohol < 10 mg/dL COVID-19 (NICK) (Negative) COVID-19 Clin Com Discharge Plan Discharge Prescriptions: No Action haloperidol 0.5 mg tablet 0.5 mg PO BID PRN (Reason: Agitation) RF: 0 metformin 500 mg tablet 1 tab PO BID RF: 0 atorvastatin 10 mg tablet 1 tab PO BEDTIME RF: 0 doxazosin 1 mg tablet 3 mg PO BEDTIME RF: 0 haloperidol decanoate 100 mg/mL solution 1 ml IM Q4W RF: 0 trazodone 150 mg tablet 1 tab PO BEDTIME PRN (Reason: Insomnia) RF: 0 chlorpromazine 25 mg tablet 1 tab PO TID PRN (Reason: Agitation) RF: 0 benztropine 1 mg tablet 1 mg PO DAILY RF: 0 docusate sodium [DOK] 100 mg capsule 1 cap PO BID PRN (Reason: constipation) RF: 0 verapamil 240 mg tablet extended release 1 tab PO BEDTIME RF: 0 montelukast 10 mg tablet 1 tab PO BEDTIME RF: 0 lisinopril 5 mg tablet 1 tab PO DAILY RF: 0 lorazepam 1 mg tablet 1 tab PO BID PRN (Reason: Anxiety) RF: 0 loratadine 10 mg tablet 1 tab PO DAILY RF: 0 Flovent HFA 110 mcg/actuation HFA aerosol inhaler 2 puff inhalation BID RF: 0 polyethylene glycol 3350 [Miralax] 17 gram Powder In Packet 17 g PO DAILY RF: 0 pantoprazole [Protonix] 40 mg Tablet,Delayed Release (Dr/Ec) 40 mg PO BID RF: 0 ibuprofen 400 mg Tablet 400 mg PO Q8H PRN (Reason: Pain) RF: 0 ferrous sulfate 325 mg (65 mg iron) tablet,delayed release (DR/EC) 1 tab PO DAILY RF: 0 nicotine (polacrilex) [Nicorette] 2 mg Lozenge 2 mg BUCCAL Q2-4H PRN (Reason: Nicotine Cravings) RF: 0
--- NOTE | 2021-03-04 18:48 | PC.NURSE ---
Referral electronically sent to [facility]
[2021-03-04 19:10] LABS: COVID-19 Test Negative (Negative); IDNOW Serial# 08D9AD1C
--- NOTE | 2021-03-04 19:11 | PC.NURSE ---
[facility] called and confirmed crisis referral received
[2021-03-04 19:26] LABS: MANUAL DIFF FLAG NO
[2021-03-04 19:28] LABS: Basophils Percent Auto 0.5 % (0-2); Eosinophils Absolute Auto 0.2 X10*3/uL (0.0-0.4); Eosinophils Percent Auto 2.6 % (0-4); Hemoglobin 12.2 g/dl (12.0-16.0); Imm Gran Abs Auto 0.05 X10*3/uL (0.00-0.03); Imm Gran Pct Auto 0.6 % (0.0-0.4); Lymphocytes Absolute Auto 1.7 X10*3/uL (1.2-4.9); Lymphocytes Percent Auto 19.9 % (20-40); Mean Corpuscular Hemoglobin 29.8 pg (27.0-33.0); Mean Corpuscular Volume 90.2 fL (80-98); Mean Platelet Volume 9.4 fL (9.4-12.3); Monocytes Absolute Auto 0.5 X10*3/uL (0.1-1.2); Monocytes Percent Auto 6.4 % (2-11); Neutrophils Absolute Auto 5.9 X10*3/uL (2.0-8.3); Platelet Count 268 X10*3/uL (160-400); White Blood Count 8.4 X10*3/uL (4.8-10.8)
[2021-03-04 19:37] LABS: UPreg QC Valid YES; Urine Pregnancy NEGATIVE (NEGATIVE)
[2021-03-04 19:45] LABS: Amphetamine Screen Urine Not Detected (Not Detect); Barbiturates, Urine Not Detected (Not Detect); Benzodiazepines Screen Urine Not Detected (Not Detect); Cannabinoid Screen Urine Not Detected (Not Detect); Cocaine Screen Urine Not Detected (Not Detect); Opiate Screen Urine Not Detected (Not Detect); Phencyclidine Screen Urine Not Detected (Not Detect)
[2021-03-04 19:52] LABS: Ethanol < 10 mg/dL
[2021-03-04 19:57] LABS: Alanine Aminotransferase 21 U/L (0-31); Albumin Level 4.1 g/dL (3.5-5.0); Alkaline Phosphatase 109 U/L (39-117); Anion Gap 14 (12-20); Aspartate Amino Transferase 14 U/L (5-31); Bilirubin Total 0.2 mg/dL (0.0-1.0); Blood Urea Nitrogen 6 mg/dL (9-16); Carbon Dioxide 25 mmol/L (22-29); Chloride 105 mmol/L (96-108); Creatinine Clr Calc Pharmacy 113.4; Estimated Glomerular Filt Rate > 60; Glucose Random 167 mg/dL (60-115); Potassium 3.6 mmol/L (3.3-5.1); Sodium 140 mmol/L (135-145); Total Protein 6.5 g/dL (6.5-8.0)
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
[2021-03-05 06:25] VITALS: BP 148/93; PULSE 85; RESP 17; TEMP 36.3; O2SAT 95
== END 2021-03-05 07:57 | disposition home or self-care (01) ==
PROVIDERS: Physician Assistant; Emergency Provider Emergency Medicine
DX: F33.1 Major depressive disorder, recurrent, moderate (principal); R45.851 Suicidal ideations; R44.1 Visual hallucinations; R44.0 Auditory hallucinations; Z20.822 Contact with and (suspected) exposure to COVID-19; Z79.899 Other long term (current) drug therapy; Z87.891 Personal history of nicotine dependence
CPT/HCPCS: 36415; 80053; 80307; 80320; 81025; 85025; 87635; 99284

== ENCOUNTER 2021-03-09 21:54 | Emergency (ER) | payer MEDICARE, MEDICAID, SELFPAY ==
[2021-03-09 22:00] VITALS: BP 131/79; PULSE 111; RESP 18; TEMP 36.4; O2SAT 96; BMI 36.8
[2021-03-09 22:26] LABS: Glucose Urine UA NEG (NEG); Leukocyte Esterase Urine NEG (NEG); Nitrite Urine NEG (NEG); PH 5.5 (5.0-8.0); Specific Gravity - Urine <= 1.005 (1.005-1.025); UPreg QC Valid YES; Urine Blood NEG (NEG); Urine Ketones NEG (NEG); Urine Pregnancy NEGATIVE (NEGATIVE); Urine Protein NEG (NEG-TRACE)
[2021-03-09 22:30] LABS: Appearance Urine CLEAR; Color Urine YELLOW
[2021-03-09 22:39] LABS: COVID-19 Test Negative (Negative)
[2021-03-09 22:48] LABS: Amorphous Sediment Urine TRACE /LPF; Bacteria Urine TRACE /LPF; RBC Urine 0 /HPF (0); Squamous Epithelial Cell Urine TRACE /LPF; WBC Urine 0-2 /HPF (0-4)
[2021-03-09 23:04] LABS: Amphetamine Screen Urine Not Detected (Not Detect); Barbiturates, Urine Not Detected (Not Detect); Benzodiazepines Screen Urine Not Detected (Not Detect); Cannabinoid Screen Urine Not Detected (Not Detect); Cocaine Screen Urine Not Detected (Not Detect); Opiate Screen Urine Not Detected (Not Detect); Phencyclidine Screen Urine Not Detected (Not Detect)
--- NOTE | 2021-03-10 00:56 | PC.NURSE ---
[facility]N notified via smart-sheet, called [facility]/confirmed receipt of referral,
--- NOTE | 2021-03-10 01:31 | ED.PSYCH ---
HPI - Psych General Chief Complaint: Psychiatric Symptoms Stated Complaint: SECTION 12, SI Source: patient Mode of arrival: ambulatory Limitations: no limitations History of Present Illness HPI Narrative: Patient presents to ED for SI statements. Patient known to the ED for multiple visits for SI and admissions. Patient but not determine plan on how she would kill herself. Patient close superficial laceration on hand. Related Data Home Medications Medication Instructions Recorded Confirmed atorvastatin 1 tab PO BEDTIME 01/27/21 03/04/21 benztropine 1 mg PO DAILY 01/27/21 03/04/21 chlorpromazine 1 tab PO TID PRN 01/27/21 03/04/21 docusate sodium [DOK] 1 cap PO BID PRN 01/27/21 03/04/21 doxazosin 3 mg PO BEDTIME 01/27/21 03/04/21 fluticasone propionate [Flovent 2 puff INHALATION BID 01/27/21 03/04/21 HFA] haloperidol 0.5 mg PO BID PRN 01/27/21 03/04/21 haloperidol decanoate 1 ml IM Q4W 01/27/21 03/04/21 lisinopril 1 tab PO DAILY 01/27/21 03/04/21 loratadine 1 tab PO DAILY 01/27/21 03/04/21 lorazepam 1 tab PO BID PRN 01/27/21 03/04/21 metformin 1 tab PO BID 01/27/21 03/04/21 montelukast 1 tab PO BEDTIME 01/27/21 03/04/21 trazodone 1 tab PO BEDTIME PRN 01/27/21 03/04/21 verapamil 1 tab PO BEDTIME 01/27/21 03/04/21 ferrous sulfate 1 tab PO DAILY 02/12/21 03/04/21 ibuprofen 400 mg PO Q8H PRN 02/12/21 03/04/21 nicotine (polacrilex) [Nicorette] 2 mg BUCCAL Q2-4H PRN 02/12/21 03/04/21 pantoprazole [Protonix] 40 mg PO BID 02/12/21 03/04/21 polyethylene glycol 3350 [Miralax] 17 g PO DAILY 02/12/21 03/04/21 Allergies Allergy/AdvReac Type Severity Reaction Status Date / Time Fish Containing Products Allergy Severe ANAPHYLAXIS Unverified 07/01/20 16:44 codeine [Codeine] Allergy Unknown RASH Unverified 07/01/20 16:44 penicillin V Allergy Unknown Verified 01/10/18 00:00 Penicillins Allergy Unknown RASH Unverified 07/01/20 16:44 prednisolone Allergy Unknown Verified 01/10/18 00:00 prednisone [Prednisone] Allergy Unknown RASH Unverified 07/01/20 16:44 Sulfa (Sulfonamide Allergy Unknown RASH Unverified 07/01/20 16:44 Antibiotics) [Sulfa (Sulfonamides)] ziprasidone [Geodon] Allergy Unknown Verified 01/10/18 00:00 azithromycin [AZITHROMYCIN] AdvReac Severe RASH Unverified 07/01/20 16:44 nicotine AdvReac Unknown HEART Unverified 07/01/20 16:44 PALPITATION TO NICOTINE GUM Seafood Allergy Severe ANAPHYLAXIS Uncoded 07/01/20 16:44 Codeine Phosphate Allergy Unknown Uncoded 01/10/18 00:00 From Geodon Allergy Unknown DYSURIA, Uncoded 07/01/20 16:44 RASH seafood Allergy Unknown Uncoded 01/10/18 00:00 Review of Systems Review of Systems: Yes all other systems are reviewed and are negative Constitutional: Constitutional: Reports as per HPI and Reports no additional constitutional complaints Eyes: Eyes: Reports as per HPI and Reports no additional eye complaints ENT: Reports system reviewed and no additional complaints, except as documented and Reports as per HPI Cardiovascular: Cardiovascular: Reports as per HPI and Reports no additional cardiovascular complaints Respiratory: Respiratory: Reports as per HPI and Reports no additional respiratory complaints Gastrointestinal: Gastrointestinal: Reports as per HPI and Reports no additional gastrointestinal complaints Genitourinary: Genitourinary: Reports no additional female genitourinary complaints and Reports as per HPI Musculoskeletal: Musculoskeletal: Reports no additional musculoskeletal complaints and Reports as per HPI Comments: Superficial hand laceration Neurologic: Reports system reviewed and no additional complaints, except as documented and Reports as per HPI Psychiatric: Psychiatric: Reports no additional psychiatric complaints, Reports as per HPI and Reports suicidal ideation [facility] Past Medical History Medical History Bronchitis GERD (gastroesophageal reflux disease) Hyperlipidemia Mood disorder Overdose PTSD (post-traumatic stress disorder) Social History Social History Alcohol intake: never Advance Directives: No Advance Directives Information Provided: Yes Patient : No Physical Exam Vital Signs: Vital Signs: Last Vital Signs Temp 97.6 F 03/09/21 22:00 Pulse 111 H 03/09/21 22:00 Resp 18 03/09/21 22:00 BP 131/79 03/09/21 22:00 Pulse Ox 96 03/09/21 22:00 Body Mass Index 36.8 Const: General: cooperative, healthy appearing, comfortable, no acute distress, well developed, alert and awake Orientation/consciousness: oriented to time and patient oriented x3 HENMT: Head: Yes normal to inspection, Yes No palpable skull fracture present, Yes normocephalic and Yes atraumatic Eyes: General: appearance normal, both eyes and all related structures Neck: Neck: Yes normal visual inspection, Yes full ROM, Yes no lymphadenopathy, Yes no meningeal signs, Yes trachea midline, Yes supple and No tender Chest: Chest palpation & inspection: normal inspection of the chest and normal palpation of entire chest wall Resp: Effort & Inspection: normal respiratory effort and able to speak in complete sentences Auscultation: clear to auscultation bilaterally Cardio: Jugular venous distension: no JVD Heart sounds: S1 normal heart sound present and S2 normal heart sound present GI: Inspection: Yes normal to inspection and No abdominal wall ecchymosis Palpation (GI): Soft to palpation, not firm, nontender, no guarding and not rigid : General: No CVA tenderness and Yes no CVA tenderness Back/Spine/Pelvis: Back: no CVA tenderness, No CVA tenderness and No back tenderness Skin: General skin exam: no rashes or lesions noted and elasticity normal Neuro: General: oriented to time, patient oriented x3, no meningeal signs and CN's II-XI intact bilaterally Cranial nerves: Yes CN's II-XII intact bilaterally Extrem: Other: Right hand superficial laceration Psych: Appearance: grossly normal and well kempt Thought content: Suicidality present Course Course Course Narrative: Patient will have U tox and then [facility] evaluation Reevaluation(s) Reevaluation #1: Patient awaiting [facility] evaluate MDM - Psych MDM Narrative Medical decision making narrative: Depression Lab Data Labs: Lab Results 03/09/21 03/09/21 03/09/21 Range/Units 22:15 22:15 22:15 Urine Color YELLOW Urine Appearance CLEAR Urine pH 5.5 (5.0-8.0) Ur Specific [place] <= 1.005 (1.005-1.025) Urine Protein NEG (NEG-TRACE) MG/DL Urine Glucose (UA) NEG (NEG) MG/DL Urine Ketones NEG (NEG) MG/DL Urine Blood NEG (NEG) Urine Nitrite NEG (NEG) Ur Leukocyte Esterase NEG (NEG) Urine RBC 0 (0) /HPF Urine WBC 0-2 (0-4) /HPF Ur Squamous Epith Cells TRACE /LPF Amorphous Sediment TRACE /LPF Urine Bacteria TRACE /LPF Urine Test NEGATIVE (NEGATIVE) Urine Opiates Screen (Not Detect) Ur Barbiturates Screen (Not Detect) Ur Phencyclidine Scrn (Not Detect) Ur Amphetamines Screen (Not Detect) U Benzodiazepines Scrn (Not Detect) Urine Cocaine Screen (Not Detect) U Marijuana (THC) Screen (Not Detect) COVID-19 (NICK) Negative (Negative) COVID-[place] Com See Note 03/09/21 Range/Units 22:15 Urine Color Urine Appearance Urine pH (5.0-8.0) Ur Specific [place] (1.005-1.025) Urine Protein (NEG-TRACE) MG/DL Urine Glucose (UA) (NEG) MG/DL Urine Ketones (NEG) MG/DL Urine Blood (NEG) Urine Nitrite (NEG) Ur Leukocyte Esterase (NEG) Urine RBC (0) /HPF Urine WBC (0-4) /HPF Ur Squamous Epith Cells /LPF Amorphous Sediment /LPF Urine Bacteria /LPF Urine Test (NEGATIVE) Urine Opiates Screen Not Detected (Not Detect) Ur Barbiturates Screen Not Detected (Not Detect) Ur Phencyclidine Scrn Not Detected (Not Detect) Ur Amphetamines Screen Not Detected (Not Detect) U Benzodiazepines Scrn Not Detected (Not Detect) Urine Cocaine Screen Not Detected (Not Detect) U Marijuana (THC) Screen Not Detected (Not Detect) COVID-19 (NICK) (Negative) [facility] Com Discharge Plan Discharge Clinical Impression: Depression Prescriptions: No Action haloperidol 0.5 mg tablet 0.5 mg PO BID PRN (Reason: Agitation) RF: 0 metformin 500 mg tablet 1 tab PO BID RF: 0 atorvastatin 10 mg tablet 1 tab PO BEDTIME RF: 0 doxazosin 1 mg tablet 3 mg PO BEDTIME RF: 0 haloperidol decanoate 100 mg/mL solution 1 ml IM Q4W RF: 0 trazodone 150 mg tablet 1 tab PO BEDTIME PRN (Reason: Insomnia) RF: 0 chlorpromazine 25 mg tablet 1 tab PO TID PRN (Reason: Agitation) RF: 0 benztropine 1 mg tablet 1 mg PO DAILY RF: 0 docusate sodium [DOK] 100 mg capsule 1 cap PO BID PRN (Reason: constipation) RF: 0 verapamil 240 mg tablet extended release 1 tab PO BEDTIME RF: 0 montelukast 10 mg tablet 1 tab PO BEDTIME RF: 0 lisinopril 5 mg tablet 1 tab PO DAILY RF: 0 lorazepam 1 mg tablet 1 tab PO BID PRN (Reason: Anxiety) RF: 0 loratadine 10 mg tablet 1 tab PO DAILY RF: 0 Flovent HFA 110 mcg/actuation HFA aerosol inhaler 2 puff inhalation BID RF: 0 polyethylene glycol 3350 [Miralax] 17 gram Powder In Packet 17 g PO DAILY RF: 0 pantoprazole [Protonix] 40 mg Tablet,Delayed Release (Dr/Ec) 40 mg PO BID RF: 0 ibuprofen 400 mg Tablet 400 mg PO Q8H PRN (Reason: Pain) RF: 0 ferrous sulfate 325 mg (65 mg iron) tablet,delayed release (DR/EC) 1 tab PO DAILY RF: 0 nicotine (polacrilex) [Nicorette] 2 mg Lozenge 2 mg BUCCAL Q2-4H PRN (Reason: Nicotine Cravings) RF: 0
[2021-03-10 06:46] VITALS: BP 130/100; PULSE 88; RESP 17; TEMP 36.4; O2SAT 96
[2021-03-10 06:47] LABS: Glucose, Whole Blood 121 mg/dL (60-115)
--- NOTE | 2021-03-10 07:00 | PC.NURSE ---
report received from Vladimir CARDOSO. Pt SI with no plan, having difficulties at retirement. Waiting for BHN at this time.
--- NOTE | 2021-03-10 09:21 | MHC.CARE ---
CARE Team met with Pt who reported ongoing frustrations with a peer at her [facility]. Pt reports her peers PTSD symptoms have been triggering to her. Pt reports difficulty sleeping because of it. Pt reports baseline AH/VH. Pt reports she has been medication compliant. Pt reports wanting to return to her [facility] today and verbalized safety to t/w as she expressed SI in initial triage. Pt and t/w safety planned. Pt and t/w discussed utilizing a sound machine which are available at her home to assist with the noise. CARE Team spoke with the [facility] who reported no safety concerns with Pt discharging home. CARE Team spoke with provider who is agreement with plan to discharge home.
== END 2021-03-10 10:12 | disposition home or self-care (01) ==
PROVIDERS: Physician Assistant; Emergency Provider Emergency Medicine; PCP Internal Medicine
DX: F33.1 Major depressive disorder, recurrent, moderate (principal); R45.851 Suicidal ideations; Z79.899 Other long term (current) drug therapy; Z20.822 Contact with and (suspected) exposure to COVID-19
CPT/HCPCS: 36415; 80307; 81001; 81025; 82947; 87635; 99285

== ENCOUNTER 2021-03-14 16:48 | Emergency (ER) | payer MEDICARE, MEDICAID, SELFPAY ==
[2021-03-14 16:51] VITALS: BP 125/74; PULSE 112; RESP 18; TEMP 36.6; O2SAT 98; BMI 32.9
--- NOTE | 2021-03-14 16:55 | ED.PSYCH ---
HPI - Psych General Chief Complaint: Psychiatric Symptoms Stated Complaint: crisis Time Seen by Provider: 03/14/21 16:53 Source: patient and EMS Mode of arrival: EMS Limitations: no limitations History of Present Illness MD complaint: suicidal ideation and other (self harm) Onset (ago): day(s) (woke up today feeling this way) Duration: getting worse History of same: Yes Relieving factors: none Exacerbating factors: other (flashbacks) Associated psychiatric symptoms: depression and suicidal ideation Associated symptoms: denies other symptoms Treatments prior to arrival: placed on mental health hold If self harm: self-inflicted trauma Related Data Home Medications Medication Instructions Recorded Confirmed atorvastatin 1 tab PO BEDTIME 01/27/21 03/14/21 benztropine 1 mg PO TID 01/27/21 03/14/21 chlorpromazine 1 tab PO TID PRN 01/27/21 03/14/21 docusate sodium [DOK] 1 cap PO BID PRN 01/27/21 03/14/21 doxazosin 3 mg PO BEDTIME 01/27/21 03/14/21 fluticasone propionate [Flovent 2 puff INHALATION BID 01/27/21 03/14/21 HFA] haloperidol 0.5 mg PO BID PRN 01/27/21 03/14/21 haloperidol decanoate 1 ml IM Q4W 01/27/21 03/14/21 lisinopril 1 tab PO DAILY 01/27/21 03/14/21 loratadine 1 tab PO DAILY 01/27/21 03/14/21 lorazepam 1 tab PO BID PRN 01/27/21 03/14/21 metformin 1 tab PO BID 01/27/21 03/14/21 montelukast 1 tab PO BEDTIME 01/27/21 03/14/21 trazodone 1 tab PO BEDTIME PRN 01/27/21 03/14/21 verapamil 1 tab PO BEDTIME 01/27/21 03/14/21 ferrous sulfate 1 tab PO DAILY 02/12/21 03/14/21 ibuprofen 400 mg PO Q8H PRN 02/12/21 03/14/21 nicotine (polacrilex) [Nicorette] 2 mg BUCCAL Q2-4H PRN 02/12/21 03/14/21 pantoprazole [Protonix] 40 mg PO BID 02/12/21 03/14/21 polyethylene glycol 3350 [Miralax] 17 g PO DAILY 02/12/21 03/14/21 Allergies Allergy/AdvReac Type Severity Reaction Status Date / Time Fish Containing Products Allergy Severe ANAPHYLAXIS Unverified 07/01/20 16:44 codeine [Codeine] Allergy Unknown RASH Unverified 07/01/20 16:44 penicillin V Allergy Unknown Verified 01/10/18 00:00 Penicillins Allergy Unknown RASH Unverified 07/01/20 16:44 prednisolone Allergy Unknown Verified 01/10/18 00:00 prednisone [Prednisone] Allergy Unknown RASH Unverified 07/01/20 16:44 Sulfa (Sulfonamide Allergy Unknown RASH Unverified 07/01/20 16:44 Antibiotics) [Sulfa (Sulfonamides)] ziprasidone [Geodon] Allergy Unknown Verified 01/10/18 00:00 azithromycin [AZITHROMYCIN] AdvReac Severe RASH Unverified 07/01/20 16:44 nicotine AdvReac Unknown HEART Unverified 07/01/20 16:44 PALPITATION TO NICOTINE GUM Seafood Allergy Severe ANAPHYLAXIS Uncoded 07/01/20 16:44 Codeine Phosphate Allergy Unknown Uncoded 01/10/18 00:00 From Geodon Allergy Unknown DYSURIA, Uncoded 07/01/20 16:44 RASH seafood Allergy Unknown Uncoded 01/10/18 00:00 Review of Systems Review of Systems: Constitutional : No Fever, No Chills ENT/Mouth : No Ear Pain, No Nasal Congestion, No sore throat Eyes: No Eye Pain, No Swelling, No Redness Cardiovascular : No Chest Pain, No SOB Respiratory : No Cough, No Sputum, No Dyspnea Gastrointestinal : No Nausea, No Vomiting, No Diarrhea, No Hematochezia, No Melena Genitourinary : No Dysuria, No Urinary Frequency, No Hematuria Musculoskeletal : No Myalgias Skin : No Skin Lesions, No rash, pos abrasions Neuro : No Weakness, No Numbness, No Paresthesias, No Dizziness, No Headache Psych : positive Anxiety, positive Depression, positive SI no HI, pos aud hallucinations Heme/Lymph: No Lymphadenopathy Endocrine : No Polyuria, No Polydipsia All other systems reviewed and are negative PMFSH Past Medical History Attestation statement: The following information was validated with the patient. Medical History Bronchitis GERD (gastroesophageal reflux disease) Hyperlipidemia Mood disorder Overdose PTSD (post-traumatic stress disorder) Social History Social History Alcohol intake: never Patient Tobacco Use Status: Tobacco use Unknown Smoked in Last 30 Days: Yes Use of substances other than those prescribed or required for medical reasons: No Advance Directives: No Advance Directives Information Provided: Yes Patient : No Physical Exam Vital Signs: Vital Signs: Last Vital Signs Temp 97.9 F 03/14/21 16:51 Pulse 112 H 03/14/21 16:51 Resp 16 03/14/21 17:43 BP 125/74 03/14/21 16:51 Pulse Ox 98 03/14/21 16:51 Body Mass Index 32.9 Appearance: Alert. Oriented X3. No acute distress. Anxious Eyes: Pupils equal, round and reactive to light. ENT: Pharynx normal. Neck: Normal inspection. Neck supple. CVS: Normal heart rate and rhythm. Pulses normal. Respiratory: No respiratory distress. Breath sounds normal. Abdomen: Soft and nontender. Skin: Skin warm and dry. Normal skin color. Normal skin turgor. linear superficial lacerations on forearms, legs, abdomen Extremities: No lower extremity edema. No calf ttp Neuro: Oriented X 3. No motor deficit. No sensory deficit. Psych: + SI, no HI, + hallucinations, tearful Course Course Course Narrative: signed out to Dr. Martinez pending [facility] Physician observation started at 849pm Patient placed in physician observation because the patient needed more time for medication to work and to see [facility] and be evaluated for the need for psych admission. At the time observation was started the patient's vitals were stable, patient is alert and oriented improved anxiety post ativan Neuro: nonfocal, CV RRR, Lungs clear MDM - Psych MDM Narrative Medical decision making narrative: 45 yo female with hx of PTSD depression here with depression and SI, linear abrasions noted on trunk extremities at this time will obtain labs, N consult, PO ativan, dispo per results and findings. Lab Data Result diagrams: 03/14/21 17:32 03/14/21 17:32 Labs: Lab Results 03/14/21 03/14/21 03/14/21 Range/Units 17:32 17:32 17:32 WBC 8.6 (4.8-10.8) X10*3/uL RBC 4.16 L (4.20-5.50) X10*6/uL Hgb 12.5 (12.0-16.0) g/dl Hct 37.2 (37-47) % MCV 89.4 (80-98) fL MCH 30.0 (27.0-33.0) pg MCHC 33.6 (31.0-35.0) g/dl RDW 13.6 (11.0-16.0) % Plt Count 270 (160-400) X10*3/uL MPV 9.7 (9.4-12.3) fL Immature Gran % (Auto) 0.5 H (0.0-0.4) % Neut % (Auto) 70.0 (45-73) % Lymph % (Auto) 19.4 L (20-40) % [place] % (Auto) 7.3 (2-11) % Eos % (Auto) 2.3 (0-4) % Baso % (Auto) 0.5 (0-2) % Lymph # (Auto) 1.7 (1.2-4.9) X10*3/uL [place] # (Auto) 0.6 (0.1-1.2) X10*3/uL Eos # (Auto) 0.2 (0.0-0.4) X10*3/uL Baso # (Auto) 0.0 (0.0-0.2) X10*3/uL Abs Immat Gran (auto) 0.04 H (0.00-0.03) X10*3/uL Absolute Neuts (auto) 6.0 (2.0-8.3) X10*3/uL Absolute Nucleated RBC 0.000 (0.0-0.012) X10*3/uL Nucleated RBC % (auto) 0.0 (0.0-0.2) /100WBC Sodium 141 (135-145) mmol/L Potassium 3.8 (3.3-5.1) mmol/L Chloride 108 (96-108) mmol/L Carbon Dioxide 22 (22-29) mmol/L Anion Gap 15 (12-20) BUN 7 L (9-16) mg/dL Creatinine 0.73 (0.5-1.4) mg/dL Estim Creat Clear Calc 98.3 Estimated GFR > 60 Random Glucose 105 D (60-115) mg/dL Calcium 9.0 (8.4-10.2) mg/dL Total Bilirubin 0.3 (0.0-1.0) mg/dL Direct Bilirubin < 0.2 (0.0-0.5) mg/dL AST 12 (5-31) U/L ALT 13 (0-31) U/L Alkaline Phosphatase 94 (39-117) U/L Total Protein 6.9 (6.5-8.0) g/dL Albumin 4.4 (3.5-5.0) g/dL Urine Color Urine Appearance Urine pH Ur Specific [place] Urine Protein Urine Glucose (UA) Urine Ketones Urine Blood Urine Nitrite Ur Leukocyte Esterase COVID-19 (NICK) Negative (Negative) COVID-19 Clin Com See Note 03/14/21 Range/Units 17:33 WBC (4.8-10.8) X10*3/uL RBC (4.20-5.50) X10*6/uL Hgb (12.0-16.0) g/dl Hct (37-47) % MCV (80-98) fL MCH (27.0-33.0) pg MCHC (31.0-35.0) g/dl RDW (11.0-16.0) % Plt Count (160-400) X10*3/uL MPV (9.4-12.3) fL Immature Gran % (Auto) (0.0-0.4) % Neut % (Auto) (45-73) % Lymph % (Auto) (20-40) % [place] % (Auto) (2-11) % Eos % (Auto) (0-4) % Baso % (Auto) (0-2) % Lymph # (Auto) (1.2-4.9) X10*3/uL [place] # (Auto) (0.1-1.2) X10*3/uL Eos # (Auto) (0.0-0.4) X10*3/uL Baso # (Auto) (0.0-0.2) X10*3/uL Abs Immat Gran (auto) (0.00-0.03) X10*3/uL Absolute Neuts (auto) (2.0-8.3) X10*3/uL Absolute Nucleated RBC (0.0-0.012) X10*3/uL Nucleated RBC % (auto) (0.0-0.2) /100WBC Sodium (135-145) mmol/L Potassium (3.3-5.1) mmol/L Chloride (96-108) mmol/L Carbon Dioxide (22-29) mmol/L Anion Gap (12-20) BUN (9-16) mg/dL Creatinine (0.5-1.4) mg/dL Estim Creat Clear Calc Estimated GFR Random Glucose (60-115) mg/dL Calcium (8.4-10.2) mg/dL Total Bilirubin (0.0-1.0) mg/dL Direct Bilirubin (0.0-0.5) mg/dL AST (5-31) U/L ALT (0-31) U/L Alkaline Phosphatase (39-117) U/L Total Protein (6.5-8.0) g/dL Albumin (3.5-5.0) g/dL Urine Color Cancelled Urine Appearance Cancelled Urine pH Cancelled Ur Specific [place] Cancelled Urine Protein Cancelled Urine Glucose (UA) Cancelled Urine Ketones Cancelled Urine Blood Cancelled Urine Nitrite Cancelled Ur Leukocyte Esterase Cancelled COVID-19 (NICK) (Negative) COVID-19 Clin Com Discharge Plan Discharge Clinical Impression: Acute anxiety, Abrasion Depression Qualifiers: Depression Type: other depression Qualified Code(s): F32.89 - Other specified depressive episodes Prescriptions: No Action haloperidol 0.5 mg tablet 0.5 mg PO BID PRN (Reason: Agitation) RF: 0 metformin 500 mg tablet 1 tab PO BID RF: 0 atorvastatin 10 mg tablet 1 tab PO BEDTIME RF: 0 doxazosin 1 mg tablet 3 mg PO BEDTIME RF: 0 haloperidol decanoate 100 mg/mL solution 1 ml IM Q4W RF: 0 trazodone 150 mg tablet 1 tab PO BEDTIME PRN (Reason: Insomnia) RF: 0 chlorpromazine 25 mg tablet 1 tab PO TID PRN (Reason: Agitation) RF: 0 benztropine 1 mg tablet 1 mg PO TID RF: 0 docusate sodium [DOK] 100 mg capsule 1 cap PO BID PRN (Reason: constipation) RF: 0 verapamil 240 mg tablet extended release 1 tab PO BEDTIME RF: 0 montelukast 10 mg tablet 1 tab PO BEDTIME RF: 0 lisinopril 5 mg tablet 1 tab PO DAILY RF: 0 lorazepam 1 mg tablet 1 tab PO BID PRN (Reason: Anxiety) RF: 0 loratadine 10 mg tablet 1 tab PO DAILY RF: 0 Flovent HFA 110 mcg/actuation HFA aerosol inhaler 2 puff inhalation BID RF: 0 polyethylene glycol 3350 [Miralax] 17 gram Powder In Packet 17 g PO DAILY RF: 0 pantoprazole [Protonix] 40 mg Tablet,Delayed Release (Dr/Ec) 40 mg PO BID RF: 0 ibuprofen 400 mg Tablet 400 mg PO Q8H PRN (Reason: Pain) RF: 0 ferrous sulfate 325 mg (65 mg iron) tablet,delayed release (DR/EC) 1 tab PO DAILY RF: 0 nicotine (polacrilex) [Nicorette] 2 mg Lozenge 2 mg BUCCAL Q2-4H PRN (Reason: Nicotine Cravings) RF: 0
[2021-03-14 17:04] VITALS: RESP 16
[2021-03-14] MEDS: LORazepam 1 MG TABLET 2 MG PO (17:19)
[2021-03-14 17:40] LABS: MANUAL DIFF FLAG NO
[2021-03-14 17:43] VITALS: RESP 16
[2021-03-14 17:44] LABS: Basophils Percent Auto 0.5 % (0-2); Eosinophils Absolute Auto 0.2 X10*3/uL (0.0-0.4); Eosinophils Percent Auto 2.3 % (0-4); Hematocrit 37.2 % (37-47); Hemoglobin 12.5 g/dl (12.0-16.0); Imm Gran Abs Auto 0.04 X10*3/uL (0.00-0.03); Imm Gran Pct Auto 0.5 % (0.0-0.4); Lymphocytes Absolute Auto 1.7 X10*3/uL (1.2-4.9); Lymphocytes Percent Auto 19.4 % (20-40); Mean Corpuscular HGB Conc 33.6 g/dl (31.0-35.0); Mean Corpuscular Volume 89.4 fL (80-98); Mean Platelet Volume 9.7 fL (9.4-12.3); Monocytes Absolute Auto 0.6 X10*3/uL (0.1-1.2); Monocytes Percent Auto 7.3 % (2-11); Platelet Count 270 X10*3/uL (160-400); Red Blood Count 4.16 X10*6/uL (4.20-5.50); Red Cell Distribution Width 13.6 % (11.0-16.0); White Blood Count 8.6 X10*3/uL (4.8-10.8)
--- NOTE | 2021-03-14 17:58 | PC.NURSE ---
per anil at [facility], confirmed electronic fax and hard copy. she will notify intake team.
[2021-03-14 18:02] LABS: Alanine Aminotransferase 13 U/L (0-31); Albumin Level 4.4 g/dL (3.5-5.0); Alkaline Phosphatase 94 U/L (39-117); Anion Gap 15 (12-20); Aspartate Amino Transferase 12 U/L (5-31); Bilirubin Direct < 0.2 mg/dL (0.0-0.5); Bilirubin Total 0.3 mg/dL (0.0-1.0); Blood Urea Nitrogen 7 mg/dL (9-16); Carbon Dioxide 22 mmol/L (22-29); Chloride 108 mmol/L (96-108); Creatinine Clr Calc Pharmacy 98.3; Estimated Glomerular Filt Rate > 60; Glucose Random 105 mg/dL (60-115); IDNOW Serial# 9DD0AD1C; Potassium 3.8 mmol/L (3.3-5.1); Sodium 141 mmol/L (135-145); Total Protein 6.9 g/dL (6.5-8.0)
[2021-03-14 18:03] LABS: COVID-19 Test Negative (Negative)
--- NOTE | 2021-03-14 18:11 | PC.NURSE ---
Per anil at [facility]: no clinician will be able to eval until after 2300.
--- NOTE | 2021-03-14 20:00 | PC.NURSE ---
Patient in bed appears sleeping, no distress observed/reported, respiration +/=/non-labored bilaterally, BHN called to check on ETA status, spoke with Nick, due to holiday and staffing challenges no clinician available at this time, patient will be seen after 2300 tentatively, will continue to monitor.
--- NOTE | 2021-03-14 20:48 | MHC.CARE ---
CARE team is aware that [facility] is unable to send a clinician to evaluate pt until after 2300. Ativan was administered and pt has been sleeping since shortly after arrival. This board writer will check in with pt later this evening to assess need for full evaluation.
--- NOTE | 2021-03-14 22:14 | MHC.CARE ---
CARE team met with pt for a risk assessment. Pt reported that she has had a stressful week and has been feeling triggered and overwhelmed. She denied experiencing any hallucinations at that time and denied thoughts or suicide or urges to harm herself. 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 Pt requesting to discharge so she can return home to sleep and be ready for the interview. Plan of care was discussed with ED physician, who is agreeable to discharging pt to return home. This keno writer / runner will work on arranging for a lyft to bring pt home.
== END 2021-03-14 23:07 | disposition home or self-care (01) ==
PROVIDERS: Emergency Provider Emergency Medicine; PCP Internal Medicine
DX: F41.9 Anxiety disorder, unspecified (principal); F32.89 Other specified depressive episodes; S80.812A Abrasion, left lower leg, initial encounter; S80.811A Abrasion, right lower leg, initial encounter; S50.819A Abrasion of unspecified forearm, initial encounter; S30.811A Abrasion of abdominal wall, initial encounter; X78.9XXA Intentional self-harm by unspecified sharp object, initial encounter; R45.851 Suicidal ideations; R44.0 Auditory hallucinations; F43.10 Post-traumatic stress disorder, unspecified; E78.5 Hyperlipidemia, unspecified; F17.200 Nicotine dependence, unspecified, uncomplicated; Y93.9 Activity, unspecified; Y92.9 Unspecified place or not applicable; Y99.9 Unspecified external cause status; Z20.822 Contact with and (suspected) exposure to COVID-19; Z91.5 Personal history of self-harm
CPT/HCPCS: 36415; 80048; 80076; 85025; 87086; 87635; 99285

== ENCOUNTER 2021-03-16 18:25 | Inpatient (IN) | payer OTHER, MEDICARE, MEDICAID, SELFPAY ==
[2021-03-16 19:27] VITALS: BP 117/59; PULSE 98; RESP 16; TEMP 36.9; O2SAT 98
[2021-03-16 19:29] VITALS: BMI 36.6
--- NOTE | 2021-03-16 19:31 | PC.ADMIT ---
Patient arrived on unit at 1845 via ambulance from [facility] on a conditional voluntary for Major Depressive disorder and PTSD. 15 minute safety checks initiated. [facility] staff at her residential called 911 due to decompensation over a few days. Patient had multiple bleeding cuts on both of her arms and legs as well as her stomach. Pt states these cuts were self inflicted after auditory hallucinations told her to harm herself. Utox and ETOH was negative. Covid negative. Patient is cooperative with admission process, she continues to report auditory hallucinations telling her to harm herself. Pt agrees to contact staff when feeling unsafe.
[2021-03-16 23:27] VITALS: BP 121/62; PULSE 86; TEMP 36.6; O2SAT 96
--- NOTE | 2021-03-17 03:43 | PC.NURSE ---
MEDICATIONS RECONCILED BY EMAR FROM [facility]
[2021-03-17 06:00] VITALS: BP 126/70; PULSE 74; RESP 18; TEMP 36.6; O2SAT 94
[2021-03-17] MEDS: LORazepam 1 MG TABLET PO ×2 (08:24→18:31)
[2021-03-17] MEDS: chlorproMAZINE HCl 25 MG TABLET 50 MG PO ×2 (08:32→18:30)
[2021-03-17] MEDS: Loratadine 10 MG TABLET PO (09:34)
[2021-03-17] MEDS: Benztropine Mesylate 1 MG TABLET PO ×3 (09:34→21:22)
[2021-03-17] MEDS: Ferrous Sulfate 324 MG TABLET.DR PO (09:36)
[2021-03-17] MEDS: metFORMIN HCl 500 MG TABLET PO ×2 (09:36→15:32)
[2021-03-17] MEDS: Nicotine 21 MG PATCH.TD24 TRANSDERMA (09:37)
[2021-03-17 09:40] VITALS: BP 120/70; PULSE 74
[2021-03-17] MEDS: lisinopriL 5 MG TABLET PO (09:40)
[2021-03-17] MEDS: HaloperidoL 0.5 MG TABLET PO (15:32)
[2021-03-17] MEDS: Omeprazole 20 MG CAPSULE.DR PO (15:32)
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
[2021-03-17 18:00] VITALS: BP 175/71; PULSE 117; RESP 18; TEMP 37.7; O2SAT 98
[2021-03-17 21:21] VITALS: BP 143/86; PULSE 107
[2021-03-17] MEDS: VerapamiL HCL SR 240 MG TABLET.ER PO (21:21)
[2021-03-17] MEDS: Atorvastatin Calcium 10 MG TABLET PO (21:21)
[2021-03-17] MEDS: hydrOXYzine HCL 25 MG TABLET PO (21:21)
[2021-03-17] MEDS: Doxazosin Mesylate 1 MG TABLET 3 MG PO (21:21)
[2021-03-17] MEDS: traZODone HCL 50 MG TABLET 150 MG PO (21:22)
[2021-03-17] MEDS: Montelukast Sodium 10 MG TABLET PO (21:22)
[2021-03-17] MEDS: Fluticasone Propionate 250 MCG BLST.W.DEV 2 PUFF INHALE (21:24)
[2021-03-18] VITALS (7 sets, daily range): BP systolic 100–137; BP diastolic 57–93; PULSE 81–95; RESP 18–20; TEMP 36.6; O2SAT 96–98
[2021-03-18] MEDS: Omeprazole 20 MG CAPSULE.DR PO ×2 (06:31→15:54)
[2021-03-18] MEDS: Benztropine Mesylate 1 MG TABLET PO ×2 (10:14→21:15)
[2021-03-18] MEDS: Loratadine 10 MG TABLET PO (10:14)
[2021-03-18] MEDS: metFORMIN HCl 500 MG TABLET PO ×2 (10:15→15:54)
--- NOTE | 2021-03-18 10:15 | HO.PSYCHPN ---
Subjective Subjective Date of Service: 03/22/21 Reason For Visit: PTSD Interim History: Lucita reports having difficulty with urges to engage in self injurious behaviors. She reports she has tried to stay in her room and sleep it off. Pt reports suicidal ideation but denies any plan or intent to hurt herself. Pt agrees to let staff know when having urges to self harm. She also was able to identify some coping skills when feeling triggered and having these urges including having staff walk with her in [place] of the unit, being in common space with peers and staff, talk about topics that she enjoys such as horse back riding. We discussed starting naltrexon to decrease self injurious behaviors. Review of Systems Cardiovascular: Reports chest pain, Denies rapid heart rate, Denies lightheadedness and Denies dyspnea Respiratory: Denies dyspnea Gastrointestinal: Denies constipation and Denies diarrhea Mental Status Exam Mental Status Exam Narrative: Appearance: casually groomed, fair hygiene, in NAD Behavior: calm, cooperative Psychomotor: no agitation or retardation noted Speech: clear, normal rate/rhythm/volume, spontaneous TP: linear TC: no signs of psychosis, feeling hopeless, overwhelmed with flashbacks Mood: anxious Affect:congruent SI:passive, denies any plan or intent HI:denies AH/VH:voices of father, appear more related to trauma than psychotic but she does find haldol helpful Delusions:none Insight/judgment:fair x 2. Memory/cog: alert, oriented x 3. impaired due to psychiatric symptoms. mostly poor attention Patient Appearance: Disheveled Patient Orientation: Person, Place, Time and Situation Level of Consciousness: Awake Patient Behavior: Appropriate and Dependent Mood Description: Calm and Blunted Affect Description: Calm and Blunted Ability to Follow Directions: Good Speech Pattern: Clear Memory Description: Intact Diagnostics Vital Signs (24Hr): Vital Signs - 24 hr 03/21/21 18:00 03/21/21 20:12 03/22/21 09:04 Temperature 97.3 F Pulse Rate 88 90 Respiratory Rate 16 Blood Pressure 132/66 153/86 H 126/84 Pulse Oximetry 99 Body Mass Index 36.6 Labs Results: 03/21/21 15:44 Labs: Laboratory Results - last 48 hr 03/21/21 15:44 Sodium 138 Potassium 4.4 Chloride 105 Carbon Dioxide 26 Anion Gap 11 L BUN 12 D Creatinine 0.77 Estim Creat Clear Calc 110.2 Estimated GFR > 60 Random Glucose 132 H Calcium 9.4 Medications Medications Current Medications Generic Name Dose Route Start Last Admin Trade Name Freq PRN Reason Stop Dose Admin Acetaminophen 650 mg 03/16/21 18:42 Acetaminophen 325 Mg Tablet PO Q6H PRN Headache/Pain Mild Scale (1-3) Al Hydroxide/Mg Hydroxide 30 ml 03/16/21 18:42 Magnesium Hydrox/Alum Hydrox 30 Ml Oral.Susp PO Q6H PRN Heartburn/Nausea Albuterol Sulfate 2 puff 03/17/21 15:02 03/20/21 16:01 Albuterol Sulfate 90 Mcg 8 Gm Inhaler INHALE 2 puff RQ4H PRN Administration Shortness of Breath Atorvastatin Calcium 10 mg 03/17/21 21:00 03/21/21 20:13 Atorvastatin Calcium 10 Mg Tablet PO 10 mg BEDTIME [facility] Administration Benztropine Mesylate 1 mg 03/18/21 21:00 03/22/21 08:59 Benztropine Mesylate 1 Mg Tablet PO 1 mg BID [facility] Administration Chlorpromazine HCl 50 mg 03/18/21 15:10 03/21/21 16:39 Chlorpromazine Hcl 25 Mg Tablet PO 50 mg Q6H PRN Administration Anxiety/agitation Doxazosin Mesylate 3 mg 03/17/21 21:00 03/21/21 20:12 Doxazosin Mesylate 1 Mg Tablet PO 3 mg BEDTIME [facility] Administration Protocol Ferrous Sulfate 324 mg 03/17/21 09:00 03/22/21 09:00 Ferrous Sulfate 324 Mg Tablet.Dr PO 324 mg DAILY [facility] Administration Fluticasone Propionate 2 puff 03/17/21 08:00 03/22/21 09:07 Fluticasone Propionate 250 Mcg Blst.W.Dev INHALE 2 puff RBID [facility] Administration Haloperidol 2 mg 03/18/21 21:00 03/22/21 09:00 Haloperidol 1 Mg Tablet PO 2 mg TID [facility] Administration Haloperidol Decanoate 100 mg 03/18/21 10:00 03/18/21 11:06 Haloperidol Decanoate 50 Mg/Ml Ampul IM 100 mg Q28D [facility] Administration Hydroxyzine HCl 25 mg 03/16/21 18:42 03/17/21 21:21 Hydroxyzine Hcl 25 Mg Tablet PO 25 mg BEDTIME PRN Administration Anxiety Lisinopril 5 mg 03/17/21 09:00 03/22/21 09:04 Lisinopril 5 Mg Tablet PO 5 mg DAILY [facility] Administration Protocol Loratadine 10 mg 03/17/21 09:00 03/22/21 09:00 Loratadine 10 Mg Tablet PO 10 mg DAILY [facility] Administration Lorazepam 1 mg 03/18/21 15:11 03/20/21 12:29 Lorazepam 1 Mg Tablet PO 1 mg Q6H PRN Administration Anxiety Magnesium Hydroxide 30 ml 03/16/21 18:42 Milk Of Magnesia 30 Ml Oral.Susp PO DAILY PRN Constipation Metformin HCl 500 mg 03/17/21 07:30 03/22/21 08:59 Metformin Hcl 500 Mg Tablet PO 500 mg BIDAC [facility] Administration Montelukast Sodium 10 mg 03/17/21 21:00 03/21/21 20:12 Montelukast Sodium 10 Mg Tablet PO 10 mg BEDTIME [facility] Administration Naltrexone HCl 50 mg 03/18/21 15:10 03/22/21 09:00 Naltrexone Hcl 50 Mg Tablet PO 50 mg DAILY [facility] Administration Nicotine 21 mg 03/17/21 09:00 03/22/21 09:01 Nicotine 21 Mg Patch.Td24 TRANSDERMA 21 mg DAILY [facility] Administration Nicotine Polacrilex 2 mg 03/17/21 07:04 Nicotine Polacrilex 2 Mg Lozenge BUCCAL Q2H PRN Nicotine Cravings Nystatin 1 appl 03/20/21 15:00 03/22/21 10:08 Nystatin Powder 15 Gm Bottle TOPICAL Not Given TID [facility] Protocol Omeprazole 20 mg 03/17/21 16:30 03/22/21 05:46 Omeprazole 20 Mg Capsule.Dr PO 20 mg BID@0630,1630 [facility] Administration Polyethylene Glycol 17 gm 03/17/21 09:00 03/22/21 09:01 Polyethylene Glycol 3350 17 Gm Powd.Pack PO 17 gm DAILY [facility] Administration Prazosin HCl 1 mg 03/18/21 21:00 03/21/21 20:12 Prazosin Hcl 1 Mg Capsule PO 1 mg BEDTIME [facility] Administration Protocol Trazodone HCl 50 mg 03/16/21 18:42 Trazodone Hcl 50 Mg Tablet PO BEDTIME PRN Insomnia Trazodone HCl 150 mg 03/17/21 21:00 03/21/21 22:09 Trazodone Hcl 50 Mg Tablet PO 150 mg BEDTIME [facility] Administration Verapamil HCl 240 mg 03/17/21 21:00 03/21/21 20:12 Verapamil Hcl Sr 240 Mg Tablet.Er PO 240 mg BEDTIME [facility] Administration Protocol Allergies Allergies Allergy/AdvReac Type Severity Reaction Status Date / Time Fish Containing Products Allergy Severe ANAPHYLAXIS Unverified 07/01/20 16:44 codeine [Codeine] Allergy Unknown RASH Unverified 07/01/20 16:44 penicillin V Allergy Unknown Verified 01/10/18 00:00 Penicillins Allergy Unknown RASH Unverified 07/01/20 16:44 prednisolone Allergy Unknown Verified 01/10/18 00:00 prednisone [Prednisone] Allergy Unknown RASH Unverified 07/01/20 16:44 Sulfa (Sulfonamide Allergy Unknown RASH Unverified 07/01/20 16:44 Antibiotics) [Sulfa (Sulfonamides)] ziprasidone [Geodon] Allergy Unknown Verified 01/10/18 00:00 azithromycin [AZITHROMYCIN] AdvReac Severe RASH Unverified 07/01/20 16:44 nicotine AdvReac Unknown HEART Unverified 07/01/20 16:44 PALPITATION TO NICOTINE GUM Seafood Allergy Severe ANAPHYLAXIS Uncoded 07/01/20 16:44 Codeine Phosphate Allergy Unknown Uncoded 01/10/18 00:00 From Geodon Allergy Unknown DYSURIA, Uncoded 07/01/20 16:44 RASH seafood Allergy Unknown Uncoded 01/10/18 00:00 Assessment & Plan Assessment & Plan (1) Bipolar II disorder with melancholic features: Status: Acute Code(s): F31.81 - Bipolar II disorder Assessment and Plan: continue current medications collateral information start naltrexon for self injurious behaviors. Greater than 50% of the session was spent on counseling and/or coordination of care Reason for contiued inpatient stay Substantial Risk for: harm to self
[2021-03-18] MEDS: Fluticasone Propionate 250 MCG BLST.W.DEV 2 PUFF INHALE ×2 (10:16→21:10)
[2021-03-18] MEDS: Ferrous Sulfate 324 MG TABLET.DR PO (10:17)
[2021-03-18] MEDS: Nicotine 21 MG PATCH.TD24 TRANSDERMA (10:17)
[2021-03-18] MEDS: lisinopriL 5 MG TABLET PO (10:25)
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
[2021-03-18] MEDS: chlorproMAZINE HCl 25 MG TABLET 50 MG PO (13:14)
[2021-03-18] MEDS: Naltrexone HCl 50 MG TABLET PO (15:54)
[2021-03-18] MEDS: Montelukast Sodium 10 MG TABLET PO (21:14)
[2021-03-18] MEDS: HaloperidoL 1 MG TABLET 2 MG PO (21:14)
[2021-03-18] MEDS: traZODone HCL 50 MG TABLET 150 MG PO (21:14)
[2021-03-18] MEDS: Doxazosin Mesylate 1 MG TABLET 3 MG PO (21:15)
[2021-03-18] MEDS: Atorvastatin Calcium 10 MG TABLET PO (21:16)
[2021-03-18] MEDS: Prazosin HCL 1 MG CAPSULE PO (21:16)
[2021-03-18] MEDS: VerapamiL HCL SR 240 MG TABLET.ER PO (22:01)
[2021-03-19 06:00] VITALS: BP 132/72; PULSE 78; O2SAT 97
[2021-03-19] MEDS: Omeprazole 20 MG CAPSULE.DR PO ×2 (06:36→17:21)
[2021-03-19] MEDS: Fluticasone Propionate 250 MCG BLST.W.DEV 2 PUFF INHALE ×2 (09:12→22:21)
[2021-03-19] MEDS: Loratadine 10 MG TABLET PO (09:12)
[2021-03-19] MEDS: Benztropine Mesylate 1 MG TABLET PO ×2 (09:13→22:15)
[2021-03-19] MEDS: HaloperidoL 1 MG TABLET 2 MG PO ×3 (09:13→22:14)
[2021-03-19] MEDS: Nicotine 21 MG PATCH.TD24 TRANSDERMA (09:13)
[2021-03-19] MEDS: Ferrous Sulfate 324 MG TABLET.DR PO (09:14)
[2021-03-19] MEDS: metFORMIN HCl 500 MG TABLET PO ×2 (09:14→17:21)
[2021-03-19] MEDS: Naltrexone HCl 50 MG TABLET PO (09:14)
[2021-03-19 09:16] VITALS: BP 106/72; PULSE 103
[2021-03-19] MEDS: lisinopriL 5 MG TABLET PO (09:16)
[2021-03-19] MEDS: chlorproMAZINE HCl 25 MG TABLET 50 MG PO (13:30)
--- NOTE | 2021-03-19 20:16 | HO.PSYCHPN ---
Subjective Subjective Date of Service: 03/19/21 Reason For Visit: PTSD Interim History: Lucita was complaining of AH, but she was able to say she could be safe. She is getting a lot of support from the staff Medication Compliance: Yes Side effects from medications: No Review of Systems Acute medical concerns: No Medical Review of Systems: unchanged Mental Status Exam Mental Status Exam Patient Appearance: Disheveled Patient Orientation: Person, Place, Time and Situation Level of Consciousness: Awake Patient Behavior: Appropriate and Dependent Mood Description: Calm and Blunted Affect Description: Calm and Blunted Ability to Follow Directions: Good Speech Pattern: Clear Memory Description: Intact Hallucinations: Auditory Delusions: Paranoid Ideation Thought Process: Intact Thought Content: positive for Circumstantial, negative for Suicidal Ideation and negative for Homicidal Ideation Judgement: Poor Diagnostics Vital Signs (24Hr): Vital Signs - 24 hr 03/18/21 21:15 03/18/21 21:16 03/18/21 21:23 Pulse Rate 92 92 92 Blood Pressure 137/93 H 137/93 H 137/93 H Pulse Oximetry 96 03/18/21 22:01 03/19/21 06:00 03/19/21 09:16 Pulse Rate 92 78 103 H Blood Pressure 137/93 H 132/72 106/72 Pulse Oximetry 97 Body Mass Index 36.6 Medications Medications Current Medications Generic Name Dose Route Start Last Admin Trade Name Freq PRN Reason Stop Dose Admin Acetaminophen 650 mg 03/16/21 18:42 Acetaminophen 325 Mg Tablet PO Q6H PRN Headache/Pain Mild Scale (1-3) Al Hydroxide/Mg Hydroxide 30 ml 03/16/21 18:42 Magnesium Hydrox/Alum Hydrox 30 Ml Oral.Susp PO Q6H PRN Heartburn/Nausea Albuterol Sulfate 2 puff 03/17/21 15:02 Albuterol Sulfate 90 Mcg 8 Gm Inhaler INHALE RQ4H PRN Shortness of Breath Atorvastatin Calcium 10 mg 03/17/21 21:00 03/18/21 21:16 Atorvastatin Calcium 10 Mg Tablet PO 10 mg BEDTIME YULY Administration Benztropine Mesylate 1 mg 03/18/21 21:00 03/19/21 09:13 Benztropine Mesylate 1 Mg Tablet PO 1 mg BID YULY Administration Chlorpromazine HCl 50 mg 03/18/21 15:10 03/19/21 13:30 Chlorpromazine Hcl 25 Mg Tablet PO 50 mg Q6H PRN Administration Anxiety/agitation Doxazosin Mesylate 3 mg 03/17/21 21:00 03/18/21 21:15 Doxazosin Mesylate 1 Mg Tablet PO 3 mg BEDTIME YULY Administration Protocol Ferrous Sulfate 324 mg 03/17/21 09:00 03/19/21 09:14 Ferrous Sulfate 324 Mg Tablet.Dr PO 324 mg DAILY YULY Administration Fluticasone Propionate 2 puff 03/17/21 08:00 03/19/21 09:12 Fluticasone Propionate 250 Mcg Blst.W.Dev INHALE 2 puff RBID YULY Administration Haloperidol 2 mg 03/18/21 21:00 03/19/21 14:47 Haloperidol 1 Mg Tablet PO 2 mg TID YULY Administration Haloperidol Decanoate 100 mg 03/18/21 10:00 03/18/21 11:06 Haloperidol Decanoate 50 Mg/Ml Ampul IM 100 mg Q28D YULY Administration Hydroxyzine HCl 25 mg 03/16/21 18:42 03/17/21 21:21 Hydroxyzine Hcl 25 Mg Tablet PO 25 mg BEDTIME PRN Administration Anxiety Lisinopril 5 mg 03/17/21 09:00 03/19/21 09:16 Lisinopril 5 Mg Tablet PO 5 mg DAILY YULY Administration Protocol Loratadine 10 mg 03/17/21 09:00 03/19/21 09:12 Loratadine 10 Mg Tablet PO 10 mg DAILY YULY Administration Lorazepam 1 mg 03/18/21 15:11 Lorazepam 1 Mg Tablet PO Q6H PRN Anxiety Magnesium Hydroxide 30 ml 03/16/21 18:42 Milk Of Magnesia 30 Ml Oral.Susp PO DAILY PRN Constipation Metformin HCl 500 mg 03/17/21 07:30 03/19/21 17:21 Metformin Hcl 500 Mg Tablet PO 500 mg BIDAC YULY Administration Montelukast Sodium 10 mg 03/17/21 21:00 03/18/21 21:14 Montelukast Sodium 10 Mg Tablet PO 10 mg BEDTIME YULY Administration Naltrexone HCl 50 mg 03/18/21 15:10 03/19/21 09:14 Naltrexone Hcl 50 Mg Tablet PO 50 mg DAILY YULY Administration Nicotine 21 mg 03/17/21 09:00 03/19/21 09:13 Nicotine 21 Mg Patch.Td24 TRANSDERMA 21 mg DAILY YULY Administration Nicotine Polacrilex 2 mg 03/17/21 07:04 Nicotine Polacrilex 2 Mg Lozenge BUCCAL Q2H PRN Nicotine Cravings Omeprazole 20 mg 03/17/21 16:30 03/19/21 17:21 Omeprazole 20 Mg Capsule. PO 20 mg BID@0630,1630 YULY Administration Polyethylene Glycol 17 gm 03/17/21 09:00 03/19/21 10:35 Polyethylene Glycol 3350 17 Gm Powd.Pack PO Not Given DAILY YULY Prazosin HCl 1 mg 03/18/21 21:00 03/18/21 21:16 Prazosin Hcl 1 Mg Capsule PO 1 mg BEDTIME YULY Administration Protocol Trazodone HCl 50 mg 03/16/21 18:42 Trazodone Hcl 50 Mg Tablet PO BEDTIME PRN Insomnia Trazodone HCl 150 mg 03/17/21 21:00 03/18/21 21:14 Trazodone Hcl 50 Mg Tablet PO 150 mg BEDTIME YULY Administration Verapamil HCl 240 mg 03/17/21 21:00 03/18/21 22:01 Verapamil Hcl Sr 240 Mg Tablet.Er PO 240 mg BEDTIME YULY Administration Protocol Allergies Allergies Allergy/AdvReac Type Severity Reaction Status Date / Time Fish Containing Products Allergy Severe ANAPHYLAXIS Unverified 07/01/20 16:44 codeine [Codeine] Allergy Unknown RASH Unverified 07/01/20 16:44 penicillin V Allergy Unknown Verified 01/10/18 00:00 Penicillins Allergy Unknown RASH Unverified 07/01/20 16:44 prednisolone Allergy Unknown Verified 01/10/18 00:00 prednisone [Prednisone] Allergy Unknown RASH Unverified 07/01/20 16:44 Sulfa (Sulfonamide Allergy Unknown RASH Unverified 07/01/20 16:44 Antibiotics) [Sulfa (Sulfonamides)] ziprasidone [Geodon] Allergy Unknown Verified 01/10/18 00:00 azithromycin [AZITHROMYCIN] AdvReac Severe RASH Unverified 07/01/20 16:44 nicotine AdvReac Unknown HEART Unverified 07/01/20 16:44 PALPITATION TO NICOTINE GUM Seafood Allergy Severe ANAPHYLAXIS Uncoded 07/01/20 16:44 Codeine Phosphate Allergy Unknown Uncoded 01/10/18 00:00 From Geodon Allergy Unknown DYSURIA, Uncoded 07/01/20 16:44 RASH seafood Allergy Unknown Uncoded 01/10/18 00:00 Assessment & Plan Assessment & Plan (1) Auditory hallucination: Status: Acute Code(s): R44.0 - Auditory hallucinations (2) Suicide attempt by acetaminophen overdose: Status: Acute Code(s): T39.1X2A - Poisoning by 4-Aminophenol derivatives, intentional self-harm, initial encounter Greater than 50% of the session was spent on counseling and/or coordination of care CT current treatment plan Patient educated on: diagnosis and medication risk/benefits Informed Consent: further education needed Reason for contiued inpatient stay Substantial Risk for: inability to function
[2021-03-19] MEDS: LORazepam 1 MG TABLET PO (20:28)
--- NOTE | 2021-03-19 20:37 | HO.PSYCHPN ---
Subjective Subjective Date of Service: 03/20/21 Reason For Visit: PTSD Interim History: Lucita was pleasnat Diagnostics Vital Signs (24Hr): Vital Signs - 24 hr 03/18/21 21:15 03/18/21 21:16 03/18/21 21:23 Pulse Rate 92 92 92 Blood Pressure 137/93 H 137/93 H 137/93 H Pulse Oximetry 96 03/18/21 22:01 03/19/21 06:00 03/19/21 09:16 Pulse Rate 92 78 103 H Blood Pressure 137/93 H 132/72 106/72 Pulse Oximetry 97 Body Mass Index 36.6 Medications Medications Current Medications Generic Name Dose Route Start Last Admin Trade Name Freq PRN Reason Stop Dose Admin Acetaminophen 650 mg 03/16/21 18:42 Acetaminophen 325 Mg Tablet PO Q6H PRN Headache/Pain Mild Scale (1-3) Al Hydroxide/Mg Hydroxide 30 ml 03/16/21 18:42 Magnesium Hydrox/Alum Hydrox 30 Ml Oral.Susp PO Q6H PRN Heartburn/Nausea Albuterol Sulfate 2 puff 03/17/21 15:02 Albuterol Sulfate 90 Mcg 8 Gm Inhaler INHALE RQ4H PRN Shortness of Breath Atorvastatin Calcium 10 mg 03/17/21 21:00 03/18/21 21:16 Atorvastatin Calcium 10 Mg Tablet PO 10 mg BEDTIME YULY Administration Benztropine Mesylate 1 mg 03/18/21 21:00 03/19/21 09:13 Benztropine Mesylate 1 Mg Tablet PO 1 mg BID YULY Administration Chlorpromazine HCl 50 mg 03/18/21 15:10 03/19/21 13:30 Chlorpromazine Hcl 25 Mg Tablet PO 50 mg Q6H PRN Administration Anxiety/agitation Doxazosin Mesylate 3 mg 03/17/21 21:00 03/18/21 21:15 Doxazosin Mesylate 1 Mg Tablet PO 3 mg BEDTIME YULY Administration Protocol Ferrous Sulfate 324 mg 03/17/21 09:00 03/19/21 09:14 Ferrous Sulfate 324 Mg Tablet.Dr PO 324 mg DAILY YULY Administration Fluticasone Propionate 2 puff 03/17/21 08:00 03/19/21 09:12 Fluticasone Propionate 250 Mcg Blst.W.Dev INHALE 2 puff RBID YULY Administration Haloperidol 2 mg 03/18/21 21:00 03/19/21 14:47 Haloperidol 1 Mg Tablet PO 2 mg TID YULY Administration Haloperidol Decanoate 100 mg 03/18/21 10:00 03/18/21 11:06 Haloperidol Decanoate 50 Mg/Ml Ampul IM 100 mg Q28D YULY Administration Hydroxyzine HCl 25 mg 03/16/21 18:42 03/17/21 21:21 Hydroxyzine Hcl 25 Mg Tablet PO 25 mg BEDTIME PRN Administration Anxiety Lisinopril 5 mg 03/17/21 09:00 03/19/21 09:16 Lisinopril 5 Mg Tablet PO 5 mg DAILY YULY Administration Protocol Loratadine 10 mg 03/17/21 09:00 03/19/21 09:12 Loratadine 10 Mg Tablet PO 10 mg DAILY YULY Administration Lorazepam 1 mg 03/18/21 15:11 03/19/21 20:28 Lorazepam 1 Mg Tablet PO 1 mg Q6H PRN Administration Anxiety Magnesium Hydroxide 30 ml 03/16/21 18:42 Milk Of Magnesia 30 Ml Oral.Susp PO DAILY PRN Constipation Metformin HCl 500 mg 03/17/21 07:30 03/19/21 17:21 Metformin Hcl 500 Mg Tablet PO 500 mg BIDAC YULY Administration Montelukast Sodium 10 mg 03/17/21 21:00 03/18/21 21:14 Montelukast Sodium 10 Mg Tablet PO 10 mg BEDTIME YULY Administration Naltrexone HCl 50 mg 03/18/21 15:10 03/19/21 09:14 Naltrexone Hcl 50 Mg Tablet PO 50 mg DAILY YULY Administration Nicotine 21 mg 03/17/21 09:00 03/19/21 09:13 Nicotine 21 Mg Patch.Td24 TRANSDERMA 21 mg DAILY YULY Administration Nicotine Polacrilex 2 mg 03/17/21 07:04 Nicotine Polacrilex 2 Mg Lozenge BUCCAL Q2H PRN Nicotine Cravings Omeprazole 20 mg 03/17/21 16:30 03/19/21 17:21 Omeprazole 20 Mg Capsule. PO 20 mg BID@0630,1630 YULY Administration Polyethylene Glycol 17 gm 03/17/21 09:00 03/19/21 10:35 Polyethylene Glycol 3350 17 Gm Powd.Pack PO Not Given DAILY YULY Prazosin HCl 1 mg 03/18/21 21:00 03/18/21 21:16 Prazosin Hcl 1 Mg Capsule PO 1 mg BEDTIME YULY Administration Protocol Trazodone HCl 50 mg 03/16/21 18:42 Trazodone Hcl 50 Mg Tablet PO BEDTIME PRN Insomnia Trazodone HCl 150 mg 03/17/21 21:00 03/18/21 21:14 Trazodone Hcl 50 Mg Tablet PO 150 mg BEDTIME YULY Administration Verapamil HCl 240 mg 03/17/21 21:00 03/18/21 22:01 Verapamil Hcl Sr 240 Mg Tablet.Er PO 240 mg BEDTIME YULY Administration Protocol Allergies Allergies Allergy/AdvReac Type Severity Reaction Status Date / Time Fish Containing Products Allergy Severe ANAPHYLAXIS Unverified 07/01/20 16:44 codeine [Codeine] Allergy Unknown RASH Unverified 07/01/20 16:44 penicillin V Allergy Unknown Verified 01/10/18 00:00 Penicillins Allergy Unknown RASH Unverified 07/01/20 16:44 prednisolone Allergy Unknown Verified 01/10/18 00:00 prednisone [Prednisone] Allergy Unknown RASH Unverified 07/01/20 16:44 Sulfa (Sulfonamide Allergy Unknown RASH Unverified 07/01/20 16:44 Antibiotics) [Sulfa (Sulfonamides)] ziprasidone [Geodon] Allergy Unknown Verified 01/10/18 00:00 azithromycin [AZITHROMYCIN] AdvReac Severe RASH Unverified 07/01/20 16:44 nicotine AdvReac Unknown HEART Unverified 07/01/20 16:44 PALPITATION TO NICOTINE GUM Seafood Allergy Severe ANAPHYLAXIS Uncoded 07/01/20 16:44 Codeine Phosphate Allergy Unknown Uncoded 01/10/18 00:00 From Geodon Allergy Unknown DYSURIA, Uncoded 07/01/20 16:44 RASH seafood Allergy Unknown Uncoded 01/10/18 00:00 Assessment & Plan Assessment & Plan (1) Auditory hallucination: Status: Acute Code(s): R44.0 - Auditory hallucinations (2) Suicide attempt by acetaminophen overdose: Status: Acute Code(s): T39.1X2A - Poisoning by 4-Aminophenol derivatives, intentional self-harm, initial encounter Greater than 50% of the session was spent on counseling and/or coordination of care
[2021-03-19 22:12] VITALS: BP 127/78; PULSE 107
[2021-03-19] MEDS: VerapamiL HCL SR 240 MG TABLET.ER PO (22:12)
[2021-03-19] MEDS: Montelukast Sodium 10 MG TABLET PO (22:13)
[2021-03-19] MEDS: traZODone HCL 50 MG TABLET 150 MG PO (22:13)
[2021-03-19 22:14] VITALS: BP 127/78; PULSE 107
[2021-03-19] MEDS: Atorvastatin Calcium 10 MG TABLET PO (22:14)
[2021-03-19] MEDS: Prazosin HCL 1 MG CAPSULE PO (22:14)
[2021-03-19 22:15] VITALS: BP 127/78; PULSE 107
[2021-03-19] MEDS: Doxazosin Mesylate 1 MG TABLET 3 MG PO (22:15)
[2021-03-19 23:34] VITALS: TEMP 36.9; O2SAT 96
[2021-03-20] MEDS: Omeprazole 20 MG CAPSULE.DR PO ×2 (06:29→17:09)
[2021-03-20 08:00] VITALS: BP 129/67; PULSE 97; RESP 16; TEMP 36.3; O2SAT 96
[2021-03-20] MEDS: metFORMIN HCl 500 MG TABLET PO ×2 (09:33→17:09)
[2021-03-20] MEDS: Ferrous Sulfate 324 MG TABLET.DR PO (09:33)
[2021-03-20] MEDS: Fluticasone Propionate 250 MCG BLST.W.DEV 2 PUFF INHALE ×2 (09:33→20:46)
[2021-03-20] MEDS: Benztropine Mesylate 1 MG TABLET PO ×2 (09:33→20:43)
[2021-03-20] MEDS: HaloperidoL 1 MG TABLET 2 MG PO ×3 (09:33→20:43)
[2021-03-20] MEDS: Loratadine 10 MG TABLET PO (09:33)
[2021-03-20 09:34] VITALS: BP 129/67; PULSE 97
[2021-03-20] MEDS: Naltrexone HCl 50 MG TABLET PO (09:34)
[2021-03-20] MEDS: lisinopriL 5 MG TABLET PO (09:34)
[2021-03-20] MEDS: Nicotine 21 MG PATCH.TD24 TRANSDERMA (09:35)
[2021-03-20] MEDS: chlorproMAZINE HCl 25 MG TABLET 50 MG PO ×2 (11:31→18:04)
[2021-03-20] MEDS: LORazepam 1 MG TABLET PO (12:29)
[2021-03-20] MEDS: Nystatin Powder 15 GM BOTTLE 1 APPL TOPICAL ×2 (14:07→20:46)
[2021-03-20] MEDS: Albuterol Sulfate 90 MCG 8 GM INHALER 2 PUFF INHALE (16:01)
--- NOTE | 2021-03-20 18:33 | HO.PSYCHPN ---
Subjective Subjective Date of Service: 03/20/21 Reason For Visit: PTSD Interim History: Lucita reported that she felt somewhat better though she still has AH telling her to hurt herself. She is benefiting from staff support. Medication Compliance: Yes Side effects from medications: No Review of Systems Acute medical concerns: No Medical Review of Systems: unchanged Mental Status Exam Mental Status Exam Patient Appearance: Disheveled Patient Orientation: Person, Place, Time and Situation Level of Consciousness: Awake Patient Behavior: Appropriate and Dependent Mood Description: Calm and Blunted Affect Description: Calm and Blunted Ability to Follow Directions: Good Speech Pattern: Clear Memory Description: Intact Hallucinations: Auditory Delusions: Paranoid Ideation Thought Process: Intact Thought Content: positive for Circumstantial, negative for Suicidal Ideation and negative for Homicidal Ideation Judgement: Poor Diagnostics Vital Signs (24Hr): Vital Signs - 24 hr 03/19/21 22:12 03/19/21 22:14 03/19/21 22:15 Temperature Pulse Rate 107 H 107 H 107 H Respiratory Rate Blood Pressure 127/78 127/78 127/78 Pulse Oximetry 03/19/21 23:34 03/20/21 08:00 03/20/21 09:34 Temperature 98.5 F 97.3 F Pulse Rate 97 97 Respiratory Rate 16 Blood Pressure 129/67 129/67 Pulse Oximetry 96 96 Body Mass Index 36.6 Medications Medications Current Medications Generic Name Dose Route Start Last Admin Trade Name Freq PRN Reason Stop Dose Admin Acetaminophen 650 mg 03/16/21 18:42 Acetaminophen 325 Mg Tablet PO Q6H PRN Headache/Pain Mild Scale (1-3) Al Hydroxide/Mg Hydroxide 30 ml 03/16/21 18:42 Magnesium Hydrox/Alum Hydrox 30 Ml Oral.Susp PO Q6H PRN Heartburn/Nausea Albuterol Sulfate 2 puff 03/17/21 15:02 03/20/21 16:01 Albuterol Sulfate 90 Mcg 8 Gm Inhaler INHALE 2 puff RQ4H PRN Administration Shortness of Breath Atorvastatin Calcium 10 mg 03/17/21 21:00 03/19/21 22:14 Atorvastatin Calcium 10 Mg Tablet PO 10 mg BEDTIME YULY Administration Benztropine Mesylate 1 mg 03/18/21 21:00 03/20/21 09:33 Benztropine Mesylate 1 Mg Tablet PO 1 mg BID YULY Administration Chlorpromazine HCl 50 mg 03/18/21 15:10 03/20/21 18:04 Chlorpromazine Hcl 25 Mg Tablet PO 50 mg Q6H PRN Administration Anxiety/agitation Doxazosin Mesylate 3 mg 03/17/21 21:00 03/19/21 22:15 Doxazosin Mesylate 1 Mg Tablet PO 3 mg BEDTIME YULY Administration Protocol Ferrous Sulfate 324 mg 03/17/21 09:00 03/20/21 09:33 Ferrous Sulfate 324 Mg Tablet.Dr PO 324 mg DAILY YULY Administration Fluticasone Propionate 2 puff 03/17/21 08:00 03/20/21 09:33 Fluticasone Propionate 250 Mcg Blst.W.Dev INHALE 2 puff RBID YULY Administration Haloperidol 2 mg 03/18/21 21:00 03/20/21 14:38 Haloperidol 1 Mg Tablet PO 2 mg TID YULY Administration Haloperidol Decanoate 100 mg 03/18/21 10:00 03/18/21 11:06 Haloperidol Decanoate 50 Mg/Ml Ampul IM 100 mg Q28D YULY Administration Hydroxyzine HCl 25 mg 03/16/21 18:42 03/17/21 21:21 Hydroxyzine Hcl 25 Mg Tablet PO 25 mg BEDTIME PRN Administration Anxiety Lisinopril 5 mg 03/17/21 09:00 03/20/21 09:34 Lisinopril 5 Mg Tablet PO 5 mg DAILY YULY Administration Protocol Loratadine 10 mg 03/17/21 09:00 03/20/21 09:33 Loratadine 10 Mg Tablet PO 10 mg DAILY YULY Administration Lorazepam 1 mg 03/18/21 15:11 03/20/21 12:29 Lorazepam 1 Mg Tablet PO 1 mg Q6H PRN Administration Anxiety Magnesium Hydroxide 30 ml 03/16/21 18:42 Milk Of Magnesia 30 Ml Oral.Susp PO DAILY PRN Constipation Metformin HCl 500 mg 03/17/21 07:30 03/20/21 17:09 Metformin Hcl 500 Mg Tablet PO 500 mg BIDAC YULY Administration Montelukast Sodium 10 mg 03/17/21 21:00 03/19/21 22:13 Montelukast Sodium 10 Mg Tablet PO 10 mg BEDTIME YULY Administration Naltrexone HCl 50 mg 03/18/21 15:10 03/20/21 09:34 Naltrexone Hcl 50 Mg Tablet PO 50 mg DAILY YULY Administration Nicotine 21 mg 03/17/21 09:00 03/20/21 09:35 Nicotine 21 Mg Patch.Td24 TRANSDERMA 21 mg DAILY YULY Administration Nicotine Polacrilex 2 mg 03/17/21 07:04 Nicotine Polacrilex 2 Mg Lozenge BUCCAL Q2H PRN Nicotine Cravings Nystatin 1 appl 03/20/21 15:00 03/20/21 14:07 Nystatin Powder 15 Gm Bottle TOPICAL 1 appl TID YULY Administration Protocol Omeprazole 20 mg 03/17/21 16:30 03/20/21 17:09 Omeprazole 20 Mg Capsule.Dr PO 20 mg BID@0630,1630 YULY Administration Polyethylene Glycol 17 gm 03/17/21 09:00 03/20/21 09:39 Polyethylene Glycol 3350 17 Gm Powd.Pack PO Not Given DAILY YULY Prazosin HCl 1 mg 03/18/21 21:00 03/19/21 22:14 Prazosin Hcl 1 Mg Capsule PO 1 mg BEDTIME YULY Administration Protocol Trazodone HCl 50 mg 03/16/21 18:42 Trazodone Hcl 50 Mg Tablet PO BEDTIME PRN Insomnia Trazodone HCl 150 mg 03/17/21 21:00 03/19/21 22:13 Trazodone Hcl 50 Mg Tablet PO 150 mg BEDTIME YULY Administration Verapamil HCl 240 mg 03/17/21 21:00 03/19/21 22:12 Verapamil Hcl Sr 240 Mg Tablet.Er PO 240 mg BEDTIME YULY Administration Protocol Allergies Allergies Allergy/AdvReac Type Severity Reaction Status Date / Time Fish Containing Products Allergy Severe ANAPHYLAXIS Unverified 07/01/20 16:44 codeine [Codeine] Allergy Unknown RASH Unverified 07/01/20 16:44 penicillin V Allergy Unknown Verified 01/10/18 00:00 Penicillins Allergy Unknown RASH Unverified 07/01/20 16:44 prednisolone Allergy Unknown Verified 01/10/18 00:00 prednisone [Prednisone] Allergy Unknown RASH Unverified 07/01/20 16:44 Sulfa (Sulfonamide Allergy Unknown RASH Unverified 07/01/20 16:44 Antibiotics) [Sulfa (Sulfonamides)] ziprasidone [Geodon] Allergy Unknown Verified 01/10/18 00:00 azithromycin [AZITHROMYCIN] AdvReac Severe RASH Unverified 07/01/20 16:44 nicotine AdvReac Unknown HEART Unverified 09/17/20 16:44 PALPITATION TO NICOTINE GUM Seafood Allergy Severe ANAPHYLAXIS Uncoded 07/01/20 16:44 Codeine Phosphate Allergy Unknown Uncoded 01/10/18 00:00 From Geodon Allergy Unknown DYSURIA, Uncoded 07/01/20 16:44 RASH seafood Allergy Unknown Uncoded 01/10/18 00:00 Assessment & Plan Assessment & Plan (1) Auditory hallucination: Status: Acute Code(s): R44.0 - Auditory hallucinations (2) Suicide attempt by acetaminophen overdose: Status: Acute Code(s): T39.1X2A - Poisoning by 4-Aminophenol derivatives, intentional self-harm, initial encounter Greater than 50% of the session was spent on counseling and/or coordination of care No change to current treatment plan. Patient educated on: diagnosis and medication risk/benefits Informed Consent: further education needed Reason for contiued inpatient stay Substantial Risk for: inability to function
[2021-03-20 20:43] VITALS: BP 137/85; PULSE 92
[2021-03-20] MEDS: VerapamiL HCL SR 240 MG TABLET.ER PO (20:43)
[2021-03-20] MEDS: Prazosin HCL 1 MG CAPSULE PO (20:43)
[2021-03-20] MEDS: traZODone HCL 50 MG TABLET 150 MG PO (20:43)
[2021-03-20] MEDS: Atorvastatin Calcium 10 MG TABLET PO (20:43)
[2021-03-20 20:44] VITALS: BP 137/85; PULSE 92
[2021-03-20] MEDS: Montelukast Sodium 10 MG TABLET PO (20:44)
[2021-03-20] MEDS: Doxazosin Mesylate 1 MG TABLET 3 MG PO (20:44)
[2021-03-20 20:56] VITALS: TEMP 36.7; O2SAT 98
[2021-03-21] MEDS: Omeprazole 20 MG CAPSULE.DR PO ×2 (06:46→15:47)
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
[2021-03-21] MEDS: Nicotine 21 MG PATCH.TD24 TRANSDERMA (08:42)
[2021-03-21] MEDS: polyethylene glycoL 3350 17 GM POWD.PACK PO (08:42)
[2021-03-21 08:43] VITALS: BP 119/78; PULSE 86
[2021-03-21] MEDS: Loratadine 10 MG TABLET PO (08:43)
[2021-03-21] MEDS: lisinopriL 5 MG TABLET PO (08:43)
[2021-03-21] MEDS: metFORMIN HCl 500 MG TABLET PO ×2 (08:43→15:47)
[2021-03-21] MEDS: Naltrexone HCl 50 MG TABLET PO (08:43)
[2021-03-21] MEDS: Benztropine Mesylate 1 MG TABLET PO ×2 (08:43→20:12)
[2021-03-21] MEDS: HaloperidoL 1 MG TABLET 2 MG PO ×3 (08:43→20:11)
[2021-03-21] MEDS: Ferrous Sulfate 324 MG TABLET.DR PO (08:43)
[2021-03-21] MEDS: Fluticasone Propionate 250 MCG BLST.W.DEV 2 PUFF INHALE ×2 (08:51→20:11)
[2021-03-21] MEDS: Nystatin Powder 15 GM BOTTLE 1 APPL TOPICAL ×3 (08:51→20:11)
[2021-03-21 08:55] VITALS: BP 119/78; PULSE 86; RESP 17; TEMP 36.8; O2SAT 97
[2021-03-21] MEDS: chlorproMAZINE HCl 25 MG TABLET 50 MG PO ×2 (11:01→16:39)
--- NOTE | 2021-03-21 15:40 | PC.NURSE ---
Pt provided with weighted blanket for anxiety relief and comfort, staff to monitor effect.
[2021-03-21 16:12] LABS: Anion Gap 11 (12-20); Blood Urea Nitrogen 12 mg/dL (9-16); Calcium 9.4 mg/dL (8.4-10.2); Carbon Dioxide 26 mmol/L (22-29); Chloride 105 mmol/L (96-108); Creatinine Clr Calc Pharmacy 110.2; Estimated Glomerular Filt Rate > 60; Glucose Random 132 mg/dL (60-115); Potassium 4.4 mmol/L (3.3-5.1); Sodium 138 mmol/L (135-145)
[2021-03-21 18:00] VITALS: BP 132/66; PULSE 88; RESP 16; TEMP 36.3; O2SAT 99
[2021-03-21 20:12] VITALS: BP 153/86; BP 156/83; PULSE 90
[2021-03-21] MEDS: Doxazosin Mesylate 1 MG TABLET 3 MG PO (20:12)
[2021-03-21] MEDS: Prazosin HCL 1 MG CAPSULE PO (20:12)
[2021-03-21] MEDS: Montelukast Sodium 10 MG TABLET PO (20:12)
[2021-03-21] MEDS: VerapamiL HCL SR 240 MG TABLET.ER PO (20:12)
[2021-03-21] MEDS: Atorvastatin Calcium 10 MG TABLET PO (20:13)
[2021-03-21] MEDS: traZODone HCL 50 MG TABLET 150 MG PO (22:09)
[2021-03-22] MEDS: Omeprazole 20 MG CAPSULE.DR PO ×2 (05:46→16:12)
[2021-03-22] MEDS: Benztropine Mesylate 1 MG TABLET PO ×2 (08:59→21:36)
[2021-03-22] MEDS: metFORMIN HCl 500 MG TABLET PO ×2 (08:59→16:12)
[2021-03-22] MEDS: HaloperidoL 1 MG TABLET 2 MG PO ×3 (09:00→21:34)
[2021-03-22] MEDS: Ferrous Sulfate 324 MG TABLET.DR PO (09:00)
[2021-03-22] MEDS: Loratadine 10 MG TABLET PO (09:00)
[2021-03-22] MEDS: Naltrexone HCl 50 MG TABLET PO (09:00)
[2021-03-22] MEDS: polyethylene glycoL 3350 17 GM POWD.PACK PO (09:01)
[2021-03-22] MEDS: Nicotine 21 MG PATCH.TD24 TRANSDERMA (09:01)
[2021-03-22 09:04] VITALS: BP 126/84
[2021-03-22] MEDS: lisinopriL 5 MG TABLET PO (09:04)
[2021-03-22] MEDS: Fluticasone Propionate 250 MCG BLST.W.DEV 2 PUFF INHALE ×2 (09:07→21:40)
[2021-03-22 11:06] VITALS: BP 126/84
[2021-03-22] MEDS: chlorproMAZINE HCl 25 MG TABLET 50 MG PO (11:39)
[2021-03-22] MEDS: Nystatin Powder 15 GM BOTTLE 1 APPL TOPICAL ×2 (12:20→21:40)
[2021-03-22] MEDS: LORazepam 1 MG TABLET PO (16:12)
[2021-03-22 18:00] VITALS: BP 137/80; PULSE 79; TEMP 36.6; O2SAT 99
[2021-03-22] MEDS: Montelukast Sodium 10 MG TABLET PO (21:34)
[2021-03-22 21:35] VITALS: BP 137/80; PULSE 79
[2021-03-22] MEDS: Doxazosin Mesylate 1 MG TABLET 3 MG PO (21:35)
[2021-03-22] MEDS: VerapamiL HCL SR 240 MG TABLET.ER PO (21:35)
[2021-03-22] MEDS: Atorvastatin Calcium 10 MG TABLET PO (21:36)
[2021-03-22] MEDS: traZODone HCL 50 MG TABLET 150 MG PO (21:36)
[2021-03-22 21:43] VITALS: BP 137/80; PULSE 79
[2021-03-22] MEDS: Prazosin HCL 1 MG CAPSULE PO (21:43)
--- NOTE | 2021-03-22 22:18 | PC.NURSE ---
vital signs taken at hs prior to med administration
[2021-03-23 06:00] VITALS: BP 112/65; PULSE 93; TEMP 36.6; O2SAT 96
[2021-03-23] MEDS: Omeprazole 20 MG CAPSULE.DR PO (06:27)
[2021-03-23 08:17] VITALS: BP 125/67; PULSE 108; RESP 18; TEMP 36.3; O2SAT 96
[2021-03-23] MEDS: Fluticasone Propionate 250 MCG BLST.W.DEV 2 PUFF INHALE (09:48)
[2021-03-23 09:50] VITALS: BP 126/74; PULSE 80
[2021-03-23] MEDS: Benztropine Mesylate 1 MG TABLET PO (09:50)
[2021-03-23] MEDS: HaloperidoL 1 MG TABLET 2 MG PO (09:50)
[2021-03-23] MEDS: metFORMIN HCl 500 MG TABLET PO (09:50)
[2021-03-23] MEDS: Ferrous Sulfate 324 MG TABLET.DR PO (09:50)
[2021-03-23] MEDS: Naltrexone HCl 50 MG TABLET PO (09:50)
[2021-03-23] MEDS: lisinopriL 5 MG TABLET PO (09:50)
[2021-03-23] MEDS: Loratadine 10 MG TABLET PO (09:51)
[2021-03-23] MEDS: Nystatin Powder 15 GM BOTTLE 1 APPL TOPICAL (09:52)
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
[2021-03-23] MEDS: polyethylene glycoL 3350 17 GM POWD.PACK PO (09:57)
--- NOTE | 2021-03-23 13:55 | PC.NURSE ---
Lucita is discharged at 03/23/2021 at 1300 to care of [facility] staff longterm staff member Sumeet. At time of discharge Lucita denies ideation, plan or intent to harm self or others. She confirms auditory hallucinations but denies command content. She She denies physical complaint except for rash in right abdomen/ inguinal area treated with nystatin. All discharge paperwork reviewed with patient who denies questions at this time. Lucita verbalizes agreement with discharge plan and confirms readiness for discharge.
== END 2021-03-23 13:00 | disposition home or self-care (01) | DRG 885 ==
PROVIDERS: Hospitalist; Admitting Provider Psychiatry & Neurology Psychiatry; Visit Provider Social Worker
DX: F31.81 Bipolar II disorder (principal); R45.851 Suicidal ideations; K21.9 Gastro-esophageal reflux disease without esophagitis; E78.5 Hyperlipidemia, unspecified; F43.10 Post-traumatic stress disorder, unspecified; F17.210 Nicotine dependence, cigarettes, uncomplicated; Z71.6 Tobacco abuse counseling; E66.9 Obesity, unspecified; Z68.36 Body mass index [BMI] 36.0-36.9, adult; J45.909 Unspecified asthma, uncomplicated; Z91.5 Personal history of self-harm; Z88.0 Allergy status to penicillin; Z88.5 Allergy status to narcotic agent; Z79.51 Long term (current) use of inhaled steroids; Z79.84 Long term (current) use of oral hypoglycemic drugs; Z79.899 Other long term (current) drug therapy
CPT/HCPCS: 36415; 80048

== ENCOUNTER 2021-03-29 15:01 | Inpatient (IN) | payer MEDICARE, MEDICAID, SELFPAY ==
[2021-03-29 15:17] VITALS: BP 127/67; PULSE 106; RESP 16; TEMP 36.9; O2SAT 98; BMI 38.9
--- NOTE | 2021-03-29 15:28 | ED.PSYCH ---
HPI - Psych General Chief Complaint: Psychiatric Symptoms Stated Complaint: SI Time Seen by Provider: 03/29/21 15:27 Source: patient and EMS Mode of arrival: EMS Limitations: no limitations History of Present Illness HPI Narrative: 45 y/o female iwth history of PTSD, bipolar II disorder, auditory hallucinations, SI attempts in the past with recently admission here on M5 from 03/17-03/23 who presents to the ED via EMS with reports of auditory hallucinations with voices telling her to kill herself. She reports overdosing on medication but will not say what medication. She is awake and alert with a flat affect. History is very limited. She has several presentations very similar. MD complaint: suicidal ideation, feels depressed and hallucinations Duration: constant History of same: Yes Relieving factors: none Exacerbating factors: none Associated psychiatric symptoms: depression, suicidal ideation and auditory hallucinations Associated symptoms: denies other symptoms Treatments prior to arrival: none If self harm: admits thoughts of self harm Related Data Home Medications Medication Instructions Recorded Confirmed Flovent HFA 2 puff INHALATION BID 01/27/21 03/17/21 atorvastatin 1 tab PO BEDTIME 01/27/21 03/17/21 doxazosin 3 mg PO BEDTIME 01/27/21 03/17/21 lisinopril 1 tab PO DAILY 01/27/21 03/17/21 loratadine 1 tab PO DAILY 01/27/21 03/17/21 metformin 1 tab PO BID 01/27/21 03/17/21 montelukast 1 tab PO BEDTIME 01/27/21 03/17/21 trazodone 1 tab PO BEDTIME 01/27/21 03/17/21 verapamil 1 tab PO BEDTIME 01/27/21 03/17/21 ferrous sulfate 1 tab PO DAILY 02/12/21 03/17/21 nicotine (polacrilex) [Nicorette] 2 mg BUCCAL Q2-4H PRN 02/12/21 03/17/21 pantoprazole [Protonix] 40 mg PO BID 02/12/21 03/17/21 polyethylene glycol 3350 [Miralax] 17 g PO DAILY 02/12/21 03/17/21 chlorpromazine 50 mg PO DAILY PRN 03/17/21 03/17/21 lorazepam [Ativan] 1 mg PO DAILY PRN 03/17/21 03/17/21 Previous Rx's Medication Instructions Recorded albuterol sulfate [Ventolin HFA] 2 puff INHALATION RQ4H PRN #6.7 g 03/23/21 benztropine 1 mg PO BID #30 tab 03/23/21 haloperidol 2 mg PO TID #90 tab 03/23/21 haloperidol decanoate 100 mg IM Q28D #1 ml 03/23/21 naltrexone 50 mg PO DAILY #30 tab 03/23/21 nicotine 21 mg TRANSDERMAL DAILY #28 ea 03/23/21 Allergies Allergy/AdvReac Type Severity Reaction Status Date / Time Fish Containing Products Allergy Severe ANAPHYLAXIS Unverified 07/01/20 16:44 codeine [Codeine] Allergy Unknown RASH Unverified 07/01/20 16:44 penicillin V Allergy Unknown Verified 01/10/18 00:00 Penicillins Allergy Unknown RASH Unverified 07/01/20 16:44 prednisolone Allergy Unknown Verified 01/10/18 00:00 prednisone [Prednisone] Allergy Unknown RASH Unverified 07/01/20 16:44 Sulfa (Sulfonamide Allergy Unknown RASH Unverified 07/01/20 16:44 Antibiotics) [Sulfa (Sulfonamides)] ziprasidone [Geodon] Allergy Unknown Verified 01/10/18 00:00 azithromycin [AZITHROMYCIN] AdvReac Severe RASH Unverified 07/01/20 16:44 nicotine AdvReac Unknown HEART Unverified 07/01/20 16:44 PALPITATION TO NICOTINE GUM Seafood Allergy Severe ANAPHYLAXIS Uncoded 07/01/20 16:44 Codeine Phosphate Allergy Unknown Uncoded 01/10/18 00:00 From Geodon Allergy Unknown DYSURIA, Uncoded 07/01/20 16:44 RASH seafood Allergy Unknown Uncoded 01/10/18 00:00 Review of Systems Review of Systems: refusing to answer Yes Unobtainable due to mental status PMFSH Past Medical History Attestation statement: The following information was validated with the patient. Medical History Bronchitis GERD (gastroesophageal reflux disease) Hyperlipidemia Mood disorder Overdose PTSD (post-traumatic stress disorder) Social History Social History 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 Other:: residential Housing: House Housing Other:: residential Do you presently have visiting nurse or other home services: Yes Alcohol intake: unknown Patient Tobacco Use Status: Current everyday Tobacco user Tobacco use type: Cigarette Cigarettes Per Day: 1 e-Cigarette/Vaping Use: Currently Using Second Hand Smoke Exposure: No Use of substances other than those prescribed or required for medical reasons: Refusing to respond Advance Directives: No Advance Directives Information Provided: No Patient : No service: No Sexual orientation: did not discuss Physical Exam Vital Signs: Vital Signs: Last Vital Signs Temp 98.4 F 03/29/21 15:17 Pulse 106 H 03/29/21 15:17 Resp 16 03/29/21 15:17 BP 127/67 03/29/21 15:17 Pulse Ox 98 03/29/21 15:17 Body Mass Index 38.9 Appearance: Alert. Oriented X3. No acute distress. Eyes: Pupils equal, round and reactive to light. ENT: Pharynx normal. Neck: Normal inspection. Neck supple. CVS: Normal heart rate and rhythm. Pulses normal. Respiratory: No respiratory distress. Breath sounds normal. Abdomen: Soft and nontender. +BS x4 Skin: Skin warm and dry. Normal skin color. Normal skin turgor. No rashes. Extremities: No lower extremity edema. Neuro/psych: grossly intact, non-focal. flat affect, +SI Course Course Course Narrative: 45 y/o female presenting with auditory hallucinations and reported overdose of medications, unclear what medication or if vaild or not. History of tylenol OD, will check level. Will check LFTs and monitor closely. Reevaluation(s) Reevaluation #1: Awaiting labs, will continue to monitor. Signed out to Rosario BARAHONA who will follow up. Physician observation started at 5pm. Patient placed in physician observation because patient is awaiting [facility] evaluation for the possible need of inpatient psych admission. At the time observation was started patient's vital signs were stable. Patient is alert and oriented. Neuro exam is non-focal. CV: RRR and lungs are clear. Will continue to monitor. MDM - Psych Lab Data Result diagrams: 03/29/21 16:50 03/29/21 16:49 Labs: Lab Results 03/29/21 Range/Units 16:08 COVID-19 ([facility]) Negative (Negative) COVID-19 Clin Com See Note Discharge Plan Discharge Prescriptions: No Action metformin 500 mg tablet 1 tab PO BID RF: 0 atorvastatin 10 mg tablet 1 tab PO BEDTIME RF: 0 doxazosin 1 mg tablet 3 mg PO BEDTIME RF: 0 trazodone 150 mg tablet 1 tab PO BEDTIME RF: 0 verapamil 240 mg tablet extended release 1 tab PO BEDTIME RF: 0 montelukast 10 mg tablet 1 tab PO BEDTIME RF: 0 lisinopril 5 mg tablet 1 tab PO DAILY RF: 0 loratadine 10 mg tablet 1 tab PO DAILY RF: 0 Flovent HFA 110 mcg/actuation HFA aerosol inhaler 2 puff inhalation BID RF: 0 polyethylene glycol 3350 [Miralax] 17 gram Powder In Packet 17 g PO DAILY RF: 0 pantoprazole [Protonix] 40 mg Tablet,Delayed Release (Dr/Ec) 40 mg PO BID RF: 0 ferrous sulfate 325 mg (65 mg iron) tablet,delayed release (DR/EC) 1 tab PO DAILY RF: 0 nicotine (polacrilex) [Nicorette] 2 mg Lozenge 2 mg BUCCAL Q2-4H PRN (Reason: Nicotine Cravings) RF: 0 chlorpromazine 25 mg Tablet 50 mg PO DAILY PRN (Reason: Anxiety) RF: 0 lorazepam [Ativan] 1 mg Tablet 1 mg PO DAILY PRN (Reason: Anxiety) RF: 0 nicotine 21 mg/24 hr Patch 24 Hour 21 mg transdermal DAILY Qty: 28 RF: 0 albuterol sulfate [Ventolin HFA] 90 mcg/actuation Hfa Aerosol Inhaler 2 puff inhalation RQ4H PRN (Reason: Shortness Of Breath) Qty: 6.7 RF: 0 naltrexone 50 mg Tablet 50 mg PO DAILY Qty: 30 RF: 0 haloperidol 1 mg Tablet 2 mg PO TID Qty: 90 RF: 0 benztropine 1 mg Tablet 1 mg PO BID Qty: 30 RF: 0 haloperidol decanoate 50 mg/mL Solution 100 mg IM Q28D Qty: 1 RF: 0
--- NOTE | 2021-03-29 16:27 | PC.NURSE ---
Fax and call to [facility] completed. Per N pt was seen today in the community and will be following up with us.
[2021-03-29 16:31] LABS: COVID-19 Test Negative (Negative); IDNOW Serial# 08D9AD1C
[2021-03-29 17:18] LABS: Alanine Aminotransferase 8 U/L (0-31); Albumin Level 4.2 g/dL (3.5-5.0); Alkaline Phosphatase 101 U/L (39-117); Anion Gap 12 (12-20); Aspartate Amino Transferase 13 U/L (5-31); Bilirubin Direct < 0.2 mg/dL (0.0-0.5); Bilirubin Total 0.3 mg/dL (0.0-1.0); Blood Urea Nitrogen 9 mg/dL (9-16); Calcium 9.1 mg/dL (8.4-10.2); Carbon Dioxide 26 mmol/L (22-29); Chloride 105 mmol/L (96-108); Creatinine Clr Calc Pharmacy 107.4; Estimated Glomerular Filt Rate > 60; Glucose Random 87 mg/dL (60-115); Potassium 4.1 mmol/L (3.3-5.1); Salicylate < 5.0 mg/dL (15-30); Sodium 139 mmol/L (135-145); Total Protein 6.5 g/dL (6.5-8.0)
[2021-03-29 17:24] LABS: Acetaminophen LAB < 1 mcg/mL (<30)
[2021-03-29 17:40] LABS: Basophils Percent Auto 0.4 % (0-2); Eosinophils Absolute Auto 0.2 X10*3/uL (0.0-0.4); Eosinophils Percent Auto 2.1 % (0-4); Hematocrit 38.7 % (37-47); Hemoglobin 12.9 g/dl (12.0-16.0); Imm Gran Abs Auto 0.04 X10*3/uL (0.00-0.03); Imm Gran Pct Auto 0.4 % (0.0-0.4); Lymphocytes Absolute Auto 1.7 X10*3/uL (1.2-4.9); Lymphocytes Percent Auto 19.4 % (20-40); Mean Corpuscular HGB Conc 33.3 g/dl (31.0-35.0); Mean Corpuscular Hemoglobin 29.9 pg (27.0-33.0); Mean Corpuscular Volume 89.8 fL (80-98); Mean Platelet Volume 9.5 fL (9.4-12.3); Monocytes Absolute Auto 0.6 X10*3/uL (0.1-1.2); Monocytes Percent Auto 6.4 % (2-11); Neutrophils Absolute Auto 6.4 X10*3/uL (2.0-8.3); Neutrophils Percent Auto 71.3 % (45-73); Platelet Count 273 X10*3/uL (160-400); Red Blood Count 4.31 X10*6/uL (4.20-5.50); White Blood Count 8.9 X10*3/uL (4.8-10.8)
[2021-03-29 18:03] LABS: Glucose Urine UA NEG (NEG); Leukocyte Esterase Urine NEG (NEG); Nitrite Urine NEG (NEG); Specific Gravity - Urine <= 1.005 (1.005-1.025); Urine Blood NEG (NEG); Urine Ketones NEG (NEG); Urine Protein NEG (NEG-TRACE)
[2021-03-29 18:10] LABS: Amphetamine Screen Urine Not Detected (Not Detect); Appearance Urine CLEAR; Barbiturates, Urine Not Detected (Not Detect); Benzodiazepines Screen Urine Not Detected (Not Detect); Cannabinoid Screen Urine Not Detected (Not Detect); Cocaine Screen Urine Not Detected (Not Detect); Color Urine YELLOW; Opiate Screen Urine Not Detected (Not Detect); Phencyclidine Screen Urine Not Detected (Not Detect)
[2021-03-29 19:21] VITALS: BP 108/76; PULSE 93; RESP 18; TEMP 35.8; O2SAT 95
--- NOTE | 2021-03-29 20:02 | PC.NURSE ---
Pt sleeping at this time, per report pt seen in community by n and is an in-pt bedsearch
--- NOTE | 2021-03-29 21:29 | PHA.MEDREC ---
Pharmacy Consult ? Medication Reconciliation Pharmacy has completed the medication reconciliation.
[2021-03-30 00:33] VITALS: BP 115/61; PULSE 83; RESP 18; TEMP 36.5; O2SAT 93
--- NOTE | 2021-03-30 07:10 | PC.NURSE ---
received report from prior staff, patient remains at rest w equal even respirations, patient appears in no distress
[2021-03-30] MEDS: metFORMIN HCl 500 MG TABLET PO ×2 (09:59→17:44)
[2021-03-30] MEDS: HaloperidoL 1 MG TABLET 2 MG PO ×3 (09:59→22:27)
[2021-03-30 10:00] VITALS: BP 115/61; PULSE 83
[2021-03-30] MEDS: lisinopriL 5 MG TABLET PO (10:00)
[2021-03-30] MEDS: Nicotine 21 MG PATCH.TD24 TRANSDERMA (10:00)
[2021-03-30] MEDS: Benztropine Mesylate 1 MG TABLET PO ×2 (10:01→22:27)
--- NOTE | 2021-03-30 10:12 | PC.NURSE ---
PT OUT IN COMMON AREA,[place].
[2021-03-30] MEDS: chlorproMAZINE HCl 25 MG TABLET 50 MG PO ×2 (12:17→18:13)
[2021-03-30 16:21] VITALS: BMI 39.2
[2021-03-30] MEDS: LORazepam 1 MG TABLET PO (18:13)
--- NOTE | 2021-03-30 19:01 | PC.ADMIT ---
Nursing admission note: 45 year old female DX: Major depressive d/o, PTSD, BPD. Referred for admission by CARE team. Signed conditional voluntary for admission. Engaged easily, good eye contact, fair attn to ADL. Thoughts clear, linear and organized. Reports +AH command, telling her to bang my head or cut myself . Per crisis eval +SI woth plan to overdose on medication, experiencing flashbacks. Reports intermittent SI at this time, states she will try to get staff when needed. Patient has long history of hospitalizations, suicidal and parasuicidal behaviors. Recent discharge from March 2021. Cooperative with admission process. Medical history includes Asthma, GERD, HTN, hypercholoremia. Denies drug or alcohol use, tox screen negative. COVID negative. Allergy to PCN, codeine, prednisone, Ziprasidone, Azithromycin,[place],fish containing products. Patient reports poor appetite, interrupted sleep. States she has dentures she does not wear and glasses that are not with her. Denies legal involvement. Oriented to unit, COLLIN signed, placed on 5 minute safety checks. See nursing assessment/crisis eval for complete details.
[2021-03-30 22:26] VITALS: BP 127/75; PULSE 92
[2021-03-30] MEDS: Doxazosin Mesylate 1 MG TABLET 3 MG PO (22:26)
[2021-03-30 22:27] VITALS: BP 127/75; PULSE 92; TEMP 37.1; O2SAT 97
[2021-03-30] MEDS: VerapamiL HCL SR 240 MG TABLET.ER PO (22:27)
[2021-03-30] MEDS: Omeprazole 20 MG CAPSULE.DR PO (22:28)
[2021-03-30] MEDS: Atorvastatin Calcium 10 MG TABLET PO (22:29)
[2021-03-30] MEDS: Montelukast Sodium 10 MG TABLET PO (22:29)
[2021-03-30] MEDS: traZODone HCL 50 MG TABLET 150 MG PO (22:29)
[2021-03-30] MEDS: Fluticasone Propionate 100 MCG BLST.W.DEV 2 PUFF INHALE (22:36)
[2021-03-31 09:23] VITALS: BP 130/82; PULSE 102; RESP 17; TEMP 36.8; O2SAT 95
[2021-03-31] MEDS: Nicotine 21 MG PATCH.TD24 TRANSDERMA (09:25)
[2021-03-31] MEDS: Fluticasone Propionate 100 MCG BLST.W.DEV 2 PUFF INHALE ×2 (09:25→21:57)
[2021-03-31 09:26] VITALS: BP 130/82; PULSE 102
[2021-03-31] MEDS: Naltrexone HCl 50 MG TABLET PO (09:26)
[2021-03-31] MEDS: Benztropine Mesylate 1 MG TABLET PO ×2 (09:26→21:58)
[2021-03-31] MEDS: HaloperidoL 1 MG TABLET 2 MG PO ×3 (09:26→21:59)
[2021-03-31] MEDS: Omeprazole 20 MG CAPSULE.DR PO ×2 (09:26→21:58)
[2021-03-31] MEDS: Ferrous Sulfate 324 MG TABLET.DR PO (09:26)
[2021-03-31] MEDS: metFORMIN HCl 500 MG TABLET PO ×2 (09:26→17:30)
[2021-03-31] MEDS: lisinopriL 5 MG TABLET PO (09:26)
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
[2021-03-31] MEDS: chlorproMAZINE HCl 25 MG TABLET 50 MG PO (14:04)
[2021-03-31] MEDS: LORazepam 1 MG TABLET PO (16:28)
[2021-03-31 21:58] VITALS: BP 158/83; PULSE 101
[2021-03-31] MEDS: Doxazosin Mesylate 1 MG TABLET 3 MG PO (21:58)
[2021-03-31] MEDS: VerapamiL HCL SR 240 MG TABLET.ER PO (21:58)
[2021-03-31] MEDS: bisacodyL 5 MG TABLET.DR PO (21:58)
[2021-03-31] MEDS: Atorvastatin Calcium 10 MG TABLET PO (21:58)
[2021-03-31] MEDS: Montelukast Sodium 10 MG TABLET PO (21:59)
[2021-03-31] MEDS: hydrOXYzine HCL 25 MG TABLET PO (21:59)
[2021-03-31] MEDS: traZODone HCL 50 MG TABLET 150 MG PO (22:00)
[2021-03-31 22:04] VITALS: BP 158/83; PULSE 101; TEMP 36.8; O2SAT 96
[2021-04-01] MEDS: Fluticasone Propionate 100 MCG BLST.W.DEV 2 PUFF INHALE ×2 (09:02→21:14)
[2021-04-01] MEDS: Nicotine 21 MG PATCH.TD24 TRANSDERMA (09:02)
[2021-04-01 09:04] VITALS: BP 133/78; PULSE 104
[2021-04-01] MEDS: lisinopriL 5 MG TABLET PO (09:04)
[2021-04-01] MEDS: Omeprazole 20 MG CAPSULE.DR PO ×2 (09:04→21:16)
[2021-04-01] MEDS: metFORMIN HCl 500 MG TABLET PO ×2 (09:07→18:12)
[2021-04-01] MEDS: Benztropine Mesylate 1 MG TABLET PO ×2 (09:07→21:16)
[2021-04-01] MEDS: Naltrexone HCl 50 MG TABLET PO (09:07)
[2021-04-01] MEDS: HaloperidoL 1 MG TABLET 2 MG PO ×3 (09:07→21:16)
[2021-04-01] MEDS: Ferrous Sulfate 324 MG TABLET.DR PO (09:07)
[2021-04-01 09:09] VITALS: BP 133/78; PULSE 104; RESP 18; O2SAT 96
[2021-04-01] MEDS: chlorproMAZINE HCl 25 MG TABLET 50 MG PO (09:56)
--- NOTE | 2021-04-01 11:53 | P.PNPSI_ITS ---
Subjective Subjective Date of Service: 04/01/21 Reason For Visit: SI Interim History: pt states she is not doing well today, c/o flashbacks and lots of impulses to self-harm. she reports she has informed staff. feeling very suicidal today. pt agrees to remain in milieu as much as possible, as she will not harm herself in the presence of others. she reports her usual coping skills as seeking out social contacts, smoking, and using weighted blanket. she states she will attempt to engage with others as much as possible, be in groups, and engage in recreational activities on the unit. informs her he will change her level of observation to Q5 min checks for safety, with which she is in agreement. per staff, pt has been active and appropriate. experiencing CAH to harm self via head-banging. considering discharge early next week. Mental Status Exam Mental Status Exam Narrative: disheveled, poorly groomed. no PMA/PMR. cooperative. speech nml in amount, rate, loudness, prosody, latency. thoughts linear and logical without delusional or paranoid content. affect constricted, non-labile. SIBI of head banging and cutting, daily, intermittent. daily flashbacks. Diagnostics Vital Signs (24Hr): Vital Signs - 24 hr 03/31/21 21:58 03/31/21 22:04 04/01/21 09:04 Temperature 98.2 F Pulse Rate 101 H 101 H 104 H Respiratory Rate Blood Pressure 158/83 H 158/83 H 133/78 Pulse Oximetry 96 04/01/21 09:09 Temperature Pulse Rate 104 H Respiratory Rate 18 Blood Pressure 133/78 Pulse Oximetry 96 Body Mass Index 39.2 Labs Results: 03/29/21 17:32 03/29/21 16:49 Medications Medications Current Medications Generic Name Dose Route Start Last Admin Trade Name Freq PRN Reason Stop Dose Admin Acetaminophen 650 mg 03/30/21 13:08 Acetaminophen 325 Mg Tablet PO Q6H PRN Headache/Pain Mild Scale (1-3) Al Hydroxide/Mg Hydroxide 30 ml 03/30/21 13:08 Magnesium Hydrox/Alum Hydrox 30 Ml Oral.Susp PO Q6H PRN Heartburn/Nausea Albuterol Sulfate 2 puff 03/30/21 09:35 Albuterol Sulfate 90 Mcg 8 Gm Inhaler INHALE RQ4H PRN Shortness Of Breath Atorvastatin Calcium 10 mg 03/30/21 21:00 03/31/21 21:58 Atorvastatin Calcium 10 Mg Tablet PO 10 mg BEDTIME YULY Administration Benztropine Mesylate 1 mg 03/30/21 09:45 04/01/21 09:07 Benztropine Mesylate 1 Mg Tablet PO 1 mg BID YULY Administration Bisacodyl 5 mg 03/31/21 19:48 03/31/21 21:58 Bisacodyl 5 Mg Tablet. PO 5 mg BEDTIME PRN Administration Constipation Chlorpromazine HCl 50 mg 03/30/21 09:35 04/01/21 09:56 Chlorpromazine Hcl 25 Mg Tablet PO 50 mg DAILY PRN Administration Anxiety Doxazosin Mesylate 3 mg 03/30/21 21:00 03/31/21 21:58 Doxazosin Mesylate 1 Mg Tablet PO 3 mg BEDTIME YULY Administration Protocol Ferrous Sulfate 324 mg 03/31/21 09:00 04/01/21 09:07 Ferrous Sulfate 324 Mg Tablet. PO 324 mg DAILY [facility] Administration Fluticasone Propionate 2 puff 03/30/21 20:00 04/01/21 09:02 Fluticasone Propionate 100 Mcg Blst.W.Dev INHALE 2 puff RBID [facility]Y Administration Haloperidol 2 mg 03/30/21 09:45 04/01/21 09:07 Haloperidol 1 Mg Tablet PO 2 mg TID [facility] Administration Haloperidol Decanoate 100 mg 04/17/21 10:00 Haloperidol Decanoate 50 Mg/Ml Ampul IM Q28D [facility] Hydroxyzine HCl 25 mg 03/31/21 16:12 03/31/21 21:59 Hydroxyzine Hcl 25 Mg Tablet PO 25 mg Q6H PRN Administration Anxiety Lisinopril 5 mg 03/30/21 10:00 04/01/21 09:04 Lisinopril 5 Mg Tablet PO 5 mg DAILY Y[facility] Administration Protocol Loratadine 10 mg 03/30/21 09:35 Loratadine 10 Mg Tablet PO DAILY PRN Allergy Symptoms Lorazepam 1 mg 03/31/21 16:12 03/31/21 16:28 Lorazepam 1 Mg Tablet PO 1 mg BID PRN Administration anxiety/restlessness Magnesium Hydroxide 30 ml 03/30/21 13:08 Milk Of Magnesia 30 Ml Oral.Susp PO DAILY PRN Constipation Metformin HCl 500 mg 03/30/21 09:45 04/01/21 09:07 Metformin Hcl 500 Mg Tablet PO 500 mg BID@0900,1700 [facility] Administration Montelukast Sodium 10 mg 03/30/21 21:00 03/31/21 21:59 Montelukast Sodium 10 Mg Tablet PO 10 mg BEDTIME [facility] Administration Naltrexone HCl 50 mg 03/30/21 09:45 04/01/21 09:07 Naltrexone Hcl 50 Mg Tablet PO 50 mg DAILY [facility] Administration Nicotine 21 mg 03/30/21 09:45 04/01/21 09:02 Nicotine 21 Mg Patch.Td24 TRANSDERMA 21 mg DAILY [facility] Administration Nicotine Polacrilex 2 mg 03/30/21 09:35 Nicotine Polacrilex 2 Mg Lozenge BUCCAL Q2H PRN Nicotine Cravings Omeprazole 20 mg 03/30/21 21:00 04/01/21 09:04 Omeprazole 20 Mg Capsule.Dr PO 20 mg BID [facility] Administration Polyethylene Glycol 17 gm 03/30/21 09:35 Polyethylene Glycol 3350 17 Gm Powd.Pack PO DAILY PRN Constipation Trazodone HCl 150 mg 03/30/21 21:00 03/31/21 22:00 Trazodone Hcl 50 Mg Tablet PO 150 mg BEDTIME [facility] Administration Trazodone HCl 50 mg 03/30/21 13:08 Trazodone Hcl 50 Mg Tablet PO BEDTIME PRN Insomnia Verapamil HCl 240 mg 03/30/21 21:00 03/31/21 21:58 Verapamil Hcl Sr 240 Mg Tablet.Er PO 240 mg BEDTIME [facility] Administration Protocol Allergies Allergies Allergy/AdvReac Type Severity Reaction Status Date / Time Fish Containing Products Allergy Severe ANAPHYLAXIS Unverified 07/01/20 16:44 codeine [Codeine] Allergy Unknown RASH Unverified 07/01/20 16:44 penicillin V Allergy Unknown Verified 01/10/18 00:00 Penicillins Allergy Unknown RASH Unverified 07/01/20 16:44 prednisolone Allergy Unknown Verified 01/10/18 00:00 prednisone [Prednisone] Allergy Unknown RASH Unverified 07/01/20 16:44 Sulfa (Sulfonamide Allergy Unknown RASH Unverified 07/01/20 16:44 Antibiotics) [Sulfa (Sulfonamides)] ziprasidone [Geodon] Allergy Unknown Verified 01/10/18 00:00 azithromycin [AZITHROMYCIN] AdvReac Severe RASH Unverified 07/01/20 16:44 nicotine AdvReac Unknown HEART Unverified 07/01/20 16:44 PALPITATION TO NICOTINE GUM Seafood Allergy Severe ANAPHYLAXIS Uncoded 07/01/20 16:44 Codeine Phosphate Allergy Unknown Uncoded 01/10/18 00:00 From Geodon Allergy Unknown DYSURIA, Uncoded 07/01/20 16:44 RASH seafood Allergy Unknown Uncoded 01/10/18 00:00 Assessment & Plan Assessment & Plan (1) PTSD (post-traumatic stress disorder): Status: Acute Code(s): F43.10 - Post-traumatic stress disorder, unspecified Assessment and Plan: continue home meds. remove from triggering environment ([place] house); work with staff to ameliorate triggers there. return to once environment has improved or better risk mitigation plan is in place. (2) Borderline personality disorder: Status: Acute Code(s): F60.3 - Borderline personality disorder Assessment and Plan: brief hospitalization as pt will begin to deteriorate in inpatient unit. return to care home as soon as is feasible. keep safe in inpatient unit; Q5 min checks for increased SIBI Greater than 50% of the session was spent on counseling and/or coordination of care Reason for contiued inpatient stay Substantial Risk for: harm to self
[2021-04-01] MEDS: LORazepam 1 MG TABLET PO (14:07)
[2021-04-01 20:30] VITALS: BP 120/64; PULSE 99; RESP 20; TEMP 36.6; O2SAT 99
[2021-04-01 21:15] VITALS: BP 120/64; PULSE 99
[2021-04-01] MEDS: VerapamiL HCL SR 240 MG TABLET.ER PO (21:15)
[2021-04-01 21:16] VITALS: BP 120/64; PULSE 99
[2021-04-01] MEDS: Atorvastatin Calcium 10 MG TABLET PO (21:16)
[2021-04-01] MEDS: traZODone HCL 50 MG TABLET 150 MG PO (21:16)
[2021-04-01] MEDS: Montelukast Sodium 10 MG TABLET PO (21:16)
[2021-04-01] MEDS: Doxazosin Mesylate 1 MG TABLET 3 MG PO (21:16)
[2021-04-02 06:00] VITALS: BP 113/68; PULSE 87; RESP 16; TEMP 36.7; O2SAT 97
[2021-04-02 08:56] VITALS: BP 113/68; PULSE 87
[2021-04-02] MEDS: Omeprazole 20 MG CAPSULE.DR PO ×2 (08:56→22:06)
[2021-04-02] MEDS: Ferrous Sulfate 324 MG TABLET.DR PO (08:56)
[2021-04-02] MEDS: lisinopriL 5 MG TABLET PO (08:56)
[2021-04-02] MEDS: HaloperidoL 1 MG TABLET 2 MG PO (08:56)
[2021-04-02] MEDS: metFORMIN HCl 500 MG TABLET PO ×2 (08:56→17:32)
[2021-04-02] MEDS: Benztropine Mesylate 1 MG TABLET PO ×2 (08:57→22:04)
[2021-04-02] MEDS: Nicotine 21 MG PATCH.TD24 TRANSDERMA (08:57)
[2021-04-02] MEDS: Naltrexone HCl 50 MG TABLET PO (08:57)
[2021-04-02] MEDS: polyethylene glycoL 3350 17 GM POWD.PACK PO (09:03)
[2021-04-02] MEDS: Fluticasone Propionate 100 MCG BLST.W.DEV 2 PUFF INHALE ×2 (09:06→22:02)
--- NOTE | 2021-04-02 11:36 | P.PNPSI_ITS ---
Subjective Subjective Date of Service: 04/03/21 Reason For Visit: SI Subjective Notes: Conditional Voluntary Interim History: The patient is anxious and ruminating intrusive traumatic memories and PTSD type hallucinations requires frequent reassurance Medication Compliance: Yes Mental Status Exam Mental Status Exam Narrative: disheveled, poorly groomed. no PMA/PMR. cooperative. speech nml in amount, rate, loudness, prosody, latency. thoughts linear and logical without delusional or paranoid content. affect constricted, non-labile. SIBI of head banging and cutting, daily, intermittent. daily flashbacks. No clear plan or intent in this setting mood depressed anxious and ruminating intermittently hopeless helpless but does seek reassurance Diagnostics Vital Signs (24Hr): Vital Signs - 24 hr 04/01/21 20:30 04/01/21 21:15 04/01/21 21:16 Temperature 97.8 F Pulse Rate 99 99 99 Respiratory Rate 20 Blood Pressure 120/64 120/64 120/64 Pulse Oximetry 99 04/02/21 06:00 04/02/21 08:56 Temperature 98.0 F Pulse Rate 87 87 Respiratory Rate 16 Blood Pressure 113/68 113/68 Pulse Oximetry 97 Body Mass Index 39.2 Labs Results: 03/29/21 17:32 03/29/21 16:49 Medications Medications Current Medications Generic Name Dose Route Start Last Admin Trade Name Freq PRN Reason Stop Dose Admin Acetaminophen 650 mg 03/30/21 13:08 Acetaminophen 325 Mg Tablet PO Q6H PRN Headache/Pain Mild Scale (1-3) Al Hydroxide/Mg Hydroxide 30 ml 03/30/21 13:08 Magnesium Hydrox/Alum Hydrox 30 Ml Oral.Susp PO Q6H PRN Heartburn/Nausea Albuterol Sulfate 2 puff 03/30/21 09:35 Albuterol Sulfate 90 Mcg 8 Gm Inhaler INHALE RQ4H PRN Shortness Of Breath Atorvastatin Calcium 10 mg 03/30/21 21:00 04/01/21 21:16 Atorvastatin Calcium 10 Mg Tablet PO 10 mg BEDTIME YULY Administration Benztropine Mesylate 1 mg 03/30/21 09:45 04/02/21 08:57 Benztropine Mesylate 1 Mg Tablet PO 1 mg BID YULY Administration Bisacodyl 5 mg 03/31/21 19:48 03/31/21 21:58 Bisacodyl 5 Mg Tablet. PO 5 mg BEDTIME PRN Administration Constipation Chlorpromazine HCl 50 mg 03/30/21 09:35 04/01/21 09:56 Chlorpromazine Hcl 25 Mg Tablet PO 50 mg DAILY PRN Administration Anxiety Doxazosin Mesylate 3 mg 03/30/21 21:00 04/01/21 21:16 Doxazosin Mesylate 1 Mg Tablet PO 3 mg BEDTIME YULY Administration Protocol Ferrous Sulfate 324 mg 03/31/21 09:00 04/02/21 08:56 Ferrous Sulfate 324 Mg Tablet. PO 324 mg DAILY YULY Administration Fluticasone Propionate 2 puff 03/30/21 20:00 04/02/21 09:06 Fluticasone Propionate 100 Mcg Blst.W.Dev INHALE 2 puff RBID YULY Administration Haloperidol 2 mg 03/30/21 09:45 04/02/21 08:56 Haloperidol 1 Mg Tablet PO 2 mg TID YULY Administration Haloperidol Decanoate 100 mg 04/17/21 10:00 Haloperidol Decanoate 50 Mg/Ml Ampul IM Q28D YULY Hydroxyzine HCl 25 mg 03/31/21 16:12 03/31/21 21:59 Hydroxyzine Hcl 25 Mg Tablet PO 25 mg Q6H PRN Administration Anxiety Lisinopril 5 mg 03/30/21 10:00 04/02/21 08:56 Lisinopril 5 Mg Tablet PO 5 mg DAILY YULY Administration Protocol Loratadine 10 mg 03/30/21 09:35 Loratadine 10 Mg Tablet PO DAILY PRN Allergy Symptoms Lorazepam 1 mg 03/31/21 16:12 04/01/21 14:07 Lorazepam 1 Mg Tablet PO 1 mg BID PRN Administration anxiety/restlessness Magnesium Hydroxide 30 ml 03/30/21 13:08 Milk Of Magnesia 30 Ml Oral.Susp PO DAILY PRN Constipation Metformin HCl 500 mg 03/30/21 09:45 04/02/21 08:56 Metformin Hcl 500 Mg Tablet PO 500 mg BID@0900,1700 YULY Administration Montelukast Sodium 10 mg 03/30/21 21:00 04/01/21 21:16 Montelukast Sodium 10 Mg Tablet PO 10 mg BEDTIME YULY Administration Naltrexone HCl 50 mg 03/30/21 09:45 04/02/21 08:57 Naltrexone Hcl 50 Mg Tablet PO 50 mg DAILY YULY Administration Nicotine 21 mg 03/30/21 09:45 04/02/21 08:57 Nicotine 21 Mg Patch.Td24 TRANSDERMA 21 mg DAILY YULY Administration Nicotine Polacrilex 2 mg 03/30/21 09:35 Nicotine Polacrilex 2 Mg Lozenge BUCCAL Q2H PRN Nicotine Cravings Omeprazole 20 mg 03/30/21 21:00 04/02/21 08:56 Omeprazole 20 Mg Capsule.Dr PO 20 mg BID YULY Administration Polyethylene Glycol 17 gm 03/30/21 09:35 04/02/21 09:03 Polyethylene Glycol 3350 17 Gm Powd.Pack PO 17 gm DAILY PRN Administration Constipation Trazodone HCl 150 mg 03/30/21 21:00 04/01/21 21:16 Trazodone Hcl 50 Mg Tablet PO 150 mg BEDTIME YULY Administration Trazodone HCl 50 mg 03/30/21 13:08 Trazodone Hcl 50 Mg Tablet PO BEDTIME PRN Insomnia Verapamil HCl 240 mg 03/30/21 21:00 04/01/21 21:15 Verapamil Hcl Sr 240 Mg Tablet.Er PO 240 mg BEDTIME YULY Administration Protocol Allergies Allergies Allergy/AdvReac Type Severity Reaction Status Date / Time Fish Containing Products Allergy Severe ANAPHYLAXIS Unverified 07/01/20 16:44 codeine [Codeine] Allergy Unknown RASH Unverified 07/01/20 16:44 penicillin V Allergy Unknown Verified 01/10/18 00:00 Penicillins Allergy Unknown RASH Unverified 07/01/20 16:44 prednisolone Allergy Unknown Verified 01/10/18 00:00 prednisone [Prednisone] Allergy Unknown RASH Unverified 07/01/20 16:44 Sulfa (Sulfonamide Allergy Unknown RASH Unverified 07/01/20 16:44 Antibiotics) [Sulfa (Sulfonamides)] ziprasidone [Geodon] Allergy Unknown Verified 01/10/18 00:00 azithromycin [AZITHROMYCIN] AdvReac Severe RASH Unverified 07/01/20 16:44 nicotine AdvReac Unknown HEART Unverified 07/01/20 16:44 PALPITATION TO NICOTINE GUM Seafood Allergy Severe ANAPHYLAXIS Uncoded 07/01/20 16:44 Codeine Phosphate Allergy Unknown Uncoded 01/10/18 00:00 From Geodon Allergy Unknown DYSURIA, Uncoded 07/01/20 16:44 RASH seafood Allergy Unknown Uncoded 03/29/18 00:00 Assessment & Plan Assessment & Plan (1) PTSD (post-traumatic stress disorder): Status: Acute Code(s): F43.10 - Post-traumatic stress disorder, unspecified Assessment and Plan: Patient has been able to maintain safety periodically hopeless helpless despondent Ativan added for severe anxiety continue plan of care encourage grounding (2) Borderline personality disorder: Status: Acute Code(s): F60.3 - Borderline personality disorder Assessment and Plan: brief hospitalization as pt will begin to deteriorate in inpatient unit. return to intermediate as soon as is feasible. keep safe in inpatient unit; Q5 min checks for increased SIBI Greater than 50% of the session was spent on counseling and/or coordination of care Reason for contiued inpatient stay Substantial Risk for: harm to self
[2021-04-02] MEDS: chlorproMAZINE HCl 25 MG TABLET 50 MG PO (13:47)
[2021-04-02] MEDS: hydrOXYzine HCL 25 MG TABLET PO (13:47)
[2021-04-02] MEDS: Acetaminophen 325 MG TABLET 650 MG PO (14:19)
[2021-04-02] MEDS: HaloperidoL 1 MG TABLET 3 MG PO ×2 (14:32→22:05)
[2021-04-02] MEDS: LORazepam 1 MG TABLET PO ×2 (15:55→22:05)
[2021-04-02 16:51] LABS: Glucose, Whole Blood 140 mg/dL (60-115)
[2021-04-02] MEDS: Atorvastatin Calcium 10 MG TABLET PO (22:02)
[2021-04-02 22:03] VITALS: BP 134/100; PULSE 97
[2021-04-02] MEDS: Doxazosin Mesylate 1 MG TABLET 3 MG PO (22:03)
[2021-04-02] MEDS: traZODone HCL 50 MG TABLET 150 MG PO (22:03)
[2021-04-02 22:04] VITALS: BP 134/100; PULSE 97
[2021-04-02] MEDS: VerapamiL HCL SR 240 MG TABLET.ER PO (22:04)
[2021-04-02] MEDS: Montelukast Sodium 10 MG TABLET PO (22:06)
[2021-04-02 22:11] VITALS: BP 134/100; PULSE 97; TEMP 36.6; O2SAT 96
[2021-04-03] MEDS: hydrOXYzine HCL 25 MG TABLET PO (00:51)
[2021-04-03] MEDS: traZODone HCL 50 MG TABLET PO (00:51)
[2021-04-03 09:00] VITALS: BP 131/76; PULSE 104; RESP 16; TEMP 36.9; O2SAT 97
[2021-04-03 09:22] VITALS: BP 131/76; PULSE 104
[2021-04-03] MEDS: HaloperidoL 1 MG TABLET 3 MG PO ×3 (09:22→21:26)
[2021-04-03] MEDS: Naltrexone HCl 50 MG TABLET PO (09:22)
[2021-04-03] MEDS: lisinopriL 5 MG TABLET PO (09:22)
[2021-04-03] MEDS: Benztropine Mesylate 1 MG TABLET PO ×2 (09:22→21:26)
[2021-04-03] MEDS: Fluticasone Propionate 100 MCG BLST.W.DEV 2 PUFF INHALE ×2 (09:23→21:27)
[2021-04-03] MEDS: Nicotine 21 MG PATCH.TD24 TRANSDERMA (09:23)
[2021-04-03] MEDS: Omeprazole 20 MG CAPSULE.DR PO ×2 (09:23→21:26)
[2021-04-03] MEDS: Ferrous Sulfate 324 MG TABLET.DR PO (09:23)
[2021-04-03] MEDS: metFORMIN HCl 500 MG TABLET PO ×2 (09:23→17:14)
[2021-04-03] MEDS: chlorproMAZINE HCl 25 MG TABLET 50 MG PO (12:16)
[2021-04-03] MEDS: LORazepam 1 MG TABLET PO (14:23)
[2021-04-03] MEDS: traZODone HCL 50 MG TABLET 150 MG PO (21:25)
[2021-04-03 21:26] VITALS: BP 128/84; PULSE 85
[2021-04-03] MEDS: VerapamiL HCL SR 240 MG TABLET.ER PO (21:26)
[2021-04-03] MEDS: Atorvastatin Calcium 10 MG TABLET PO (21:26)
[2021-04-03 21:27] VITALS: BP 128/84; PULSE 85
[2021-04-03] MEDS: Montelukast Sodium 10 MG TABLET PO (21:27)
[2021-04-03] MEDS: Doxazosin Mesylate 1 MG TABLET 3 MG PO (21:27)
[2021-04-03 21:31] VITALS: TEMP 36.5; O2SAT 97
[2021-04-03] MEDS: Clotrimazole 1 % Cream 15 GM TUBE 1 APPL TOPICAL (21:55)
--- NOTE | 2021-04-03 23:57 | P.PNPSI_ITS ---
Subjective Subjective Date of Service: 04/04/21 Reason For Visit: SI Subjective Notes: Conditional Voluntary Interim History: Pain should patient is anxious and ruminating intrusive thoughts no self-harming behavior does reach out for support has breast yeast infection Mental Status Exam Mental Status Exam Narrative: disheveled, poorly groomed. cooperative. speech in amount, rate, loudness, prosody, latency. thoughts linear and logical without delusional or paranoid content. affect constricted, non-labile. SIBI of head banging and cutting, daily, intermittent. daily flashbacks. No clear plan or intent in this setting mood depressed anxious and ruminating intermittently hopeless helpless but does seek reassurance intermittent auditory hallucinations more traumatic nature sometimes father's voice Diagnostics Vital Signs (24Hr): Vital Signs - 24 hr 04/03/21 09:00 04/03/21 09:22 04/03/21 21:26 Temperature 98.4 F Pulse Rate 104 H 104 H 85 Respiratory Rate 16 Blood Pressure 131/76 131/76 128/84 Pulse Oximetry 97 04/03/21 21:27 04/03/21 21:31 Temperature 97.7 F Pulse Rate 85 Respiratory Rate Blood Pressure 128/84 Pulse Oximetry 97 Body Mass Index 39.2 Labs Results: 03/29/21 17:32 03/29/21 16:49 Labs: Laboratory Results - last 48 hr 04/02/21 16:47 POC Glucose 140 H Medications Medications Current Medications Generic Name Dose Route Start Last Admin Trade Name Freq PRN Reason Stop Dose Admin Acetaminophen 650 mg 03/30/21 13:08 04/02/21 14:19 Acetaminophen 325 Mg Tablet PO 650 mg Q6H PRN Administration Headache/Pain Mild Scale (1-3) Al Hydroxide/Mg Hydroxide 30 ml 03/30/21 13:08 Magnesium Hydrox/Alum Hydrox 30 Ml Oral.Susp PO Q6H PRN Heartburn/Nausea Albuterol Sulfate 2 puff 03/30/21 09:35 Albuterol Sulfate 90 Mcg 8 Gm Inhaler INHALE RQ4H PRN Shortness Of Breath Atorvastatin Calcium 10 mg 03/30/21 21:00 04/03/21 21:26 Atorvastatin Calcium 10 Mg Tablet PO 10 mg BEDTIME YULY Administration Benztropine Mesylate 1 mg 03/30/21 09:45 04/03/21 21:26 Benztropine Mesylate 1 Mg Tablet PO 1 mg BID YULY Administration Bisacodyl 5 mg 03/31/21 19:48 03/31/21 21:58 Bisacodyl 5 Mg Tablet. PO 5 mg BEDTIME PRN Administration Constipation Chlorpromazine HCl 50 mg 03/30/21 09:35 04/03/21 12:16 Chlorpromazine Hcl 25 Mg Tablet PO 50 mg DAILY PRN Administration Anxiety Clotrimazole 1 appl 04/03/21 21:00 04/03/21 21:55 Clotrimazole 1 % Cream 15 Gm Tube TOPICAL 1 appl BID YULY Administration Protocol Doxazosin Mesylate 3 mg 03/30/21 21:00 04/03/21 21:27 Doxazosin Mesylate 1 Mg Tablet PO 3 mg BEDTIME YULY Administration Protocol Ferrous Sulfate 324 mg 03/31/21 09:00 04/03/21 09:23 Ferrous Sulfate 324 Mg Tablet. PO 324 mg DAILY YULY Administration Fluticasone Propionate 2 puff 03/30/21 20:00 04/03/21 21:27 Fluticasone Propionate 100 Mcg Blst.W.Dev INHALE 2 puff RBID YULY Administration Haloperidol 3 mg 04/02/21 15:00 04/03/21 21:26 Haloperidol 1 Mg Tablet PO 3 mg TID YULY Administration Haloperidol Decanoate 100 mg 04/17/21 10:00 Haloperidol Decanoate 50 Mg/Ml Ampul IM Q28D [facility] Hydroxyzine HCl 25 mg 03/31/21 16:12 04/03/21 00:51 Hydroxyzine Hcl 25 Mg Tablet PO 25 mg Q6H PRN Administration Anxiety Lisinopril 5 mg 03/30/21 10:00 04/03/21 09:22 Lisinopril 5 Mg Tablet PO 5 mg DAILY YULY Administration Protocol Loratadine 10 mg 03/30/21 09:35 Loratadine 10 Mg Tablet PO DAILY PRN Allergy Symptoms Lorazepam 1 mg 03/31/21 16:12 04/03/21 14:23 Lorazepam 1 Mg Tablet PO 1 mg BID PRN Administration anxiety/restlessness Magnesium Hydroxide 30 ml 03/30/21 13:08 Milk Of Magnesia 30 Ml Oral.Susp PO DAILY PRN Constipation Metformin HCl 500 mg 03/30/21 09:45 04/03/21 17:14 Metformin Hcl 500 Mg Tablet PO 500 mg BID@0900,1700 YULY Administration Montelukast Sodium 10 mg 03/30/21 21:00 04/03/21 21:27 Montelukast Sodium 10 Mg Tablet PO 10 mg BEDTIME YULY Administration Naltrexone HCl 50 mg 03/30/21 09:45 04/03/21 09:22 Naltrexone Hcl 50 Mg Tablet PO 50 mg DAILY YULY Administration Nicotine 21 mg 03/30/21 09:45 04/03/21 09:23 Nicotine 21 Mg Patch.Td24 TRANSDERMA 21 mg DAILY YULY Administration Nicotine Polacrilex 2 mg 03/30/21 09:35 Nicotine Polacrilex 2 Mg Lozenge BUCCAL Q2H PRN Nicotine Cravings Omeprazole 20 mg 03/30/21 21:00 04/03/21 21:26 Omeprazole 20 Mg Capsule.Dr PO 20 mg BID YULY Administration Polyethylene Glycol 17 gm 03/30/21 09:35 04/02/21 09:03 Polyethylene Glycol 3350 17 Gm Powd.Pack PO 17 gm DAILY PRN Administration Constipation Trazodone HCl 150 mg 03/30/21 21:00 04/03/21 21:25 Trazodone Hcl 50 Mg Tablet PO 150 mg BEDTIME YULY Administration Trazodone HCl 50 mg 03/30/21 13:08 04/03/21 00:51 Trazodone Hcl 50 Mg Tablet PO 50 mg BEDTIME PRN Administration Insomnia Verapamil HCl 240 mg 03/30/21 21:00 04/03/21 21:26 Verapamil Hcl Sr 240 Mg Tablet.Er PO 240 mg BEDTIME YULY Administration Protocol Allergies Allergies Allergy/AdvReac Type Severity Reaction Status Date / Time Fish Containing Products Allergy Severe ANAPHYLAXIS Unverified 07/01/20 16:44 codeine [Codeine] Allergy Unknown RASH Unverified 07/01/20 16:44 penicillin V Allergy Unknown Verified 01/10/18 00:00 Penicillins Allergy Unknown RASH Unverified 07/01/20 16:44 prednisolone Allergy Unknown Verified 01/10/18 00:00 prednisone [Prednisone] Allergy Unknown RASH Unverified 07/01/20 16:44 Sulfa (Sulfonamide Allergy Unknown RASH Unverified 07/01/20 16:44 Antibiotics) [Sulfa (Sulfonamides)] ziprasidone [Geodon] Allergy Unknown Verified 01/10/18 00:00 azithromycin [AZITHROMYCIN] AdvReac Severe RASH Unverified 07/01/20 16:44 nicotine AdvReac Unknown HEART Unverified 07/01/20 16:44 PALPITATION TO NICOTINE GUM Seafood Allergy Severe ANAPHYLAXIS Uncoded 07/01/20 16:44 Codeine Phosphate Allergy Unknown Uncoded 01/10/18 00:00 From Geodon Allergy Unknown DYSURIA, Uncoded 07/01/20 16:44 RASH seafood Allergy Unknown Uncoded 01/10/18 00:00 Assessment & Plan Assessment & Plan (1) PTSD (post-traumatic stress disorder): Status: Acute Code(s): F43.10 - Post-traumatic stress disorder, unspecified Assessment and Plan: Patient has been able to maintain safety periodically hopeless helpless despondent Ativan added for severe anxiety continue plan of care encourage grounding -[id number]- -[id number]-u-p-[id number]-l- -w-h-i-c-h- -h-a-s- -b-e--e-n- -t-[id number]-u-l- (2) Borderline personality disorder: Status: Acute Code(s): F60.3 - Borderline personality disorder Assessment and Plan: brief hospitalization as pt will begin to deteriorate in inpatient unit. return to shelter as soon as is feasible. keep safe in inpatient unit; Q5 min checks for increased SIBI Clotrimazole cream started for yeast infection under her breast Greater than 50% of the session was spent on counseling and/or coordination of care Reason for contiued inpatient stay Substantial Risk for: harm to self, inability to function and rapid decompensation
[2021-04-04 09:43] VITALS: BP 124/72; PULSE 91; RESP 18; O2SAT 95
[2021-04-04 09:45] VITALS: BP 124/72; PULSE 91
[2021-04-04] MEDS: Fluticasone Propionate 100 MCG BLST.W.DEV 2 PUFF INHALE (09:45)
[2021-04-04] MEDS: Clotrimazole 1 % Cream 15 GM TUBE 1 APPL TOPICAL (09:45)
[2021-04-04] MEDS: HaloperidoL 1 MG TABLET 3 MG PO ×2 (09:45→14:02)
[2021-04-04] MEDS: Omeprazole 20 MG CAPSULE.DR PO (09:45)
[2021-04-04] MEDS: lisinopriL 5 MG TABLET PO (09:45)
[2021-04-04] MEDS: metFORMIN HCl 500 MG TABLET PO (09:45)
[2021-04-04] MEDS: Naltrexone HCl 50 MG TABLET PO (09:46)
[2021-04-04] MEDS: Ferrous Sulfate 324 MG TABLET.DR PO (09:46)
[2021-04-04] MEDS: Benztropine Mesylate 1 MG TABLET PO (09:46)
[2021-04-04] MEDS: polyethylene glycoL 3350 17 GM POWD.PACK PO (09:57)
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
--- NOTE | 2021-04-04 15:10 | PC.NURSE ---
Pt aware and ready for discharge. PT denies SI/HI, mood is bright. Pt denies auditory and visual hallucinations. Pt belongings returned, ambulated off unit with steady gait. PT has follow up appointments scheduled with her PCP, therapist and psychiatrist.
== END 2021-04-04 15:11 | disposition home or self-care (01) | DRG 883 ==
LOC: HO.ED 03-30 10:28 → HO.PADLT16 03-30 13:19
PROVIDERS: Physician Assistant; Admitting Provider Psychiatry & Neurology Psychiatry; Emergency Provider Emergency Medicine; Visit Provider Psychiatry & Neurology Psychiatry
DX: F60.3 Borderline personality disorder (principal); R45.851 Suicidal ideations; F31.81 Bipolar II disorder; F43.10 Post-traumatic stress disorder, unspecified; K21.9 Gastro-esophageal reflux disease without esophagitis; Z91.5 Personal history of self-harm; E78.5 Hyperlipidemia, unspecified; Z20.822 Contact with and (suspected) exposure to COVID-19; Z88.0 Allergy status to penicillin; Z88.2 Allergy status to sulfonamides; Z88.5 Allergy status to narcotic agent; Z79.899 Other long term (current) drug therapy
CPT/HCPCS: 36415; 80048; 80076; 80143; 80179; 80307; 81003; 82947; 85025; 87635; 99285

== ENCOUNTER 2021-04-20 17:15 | Emergency (ER) | payer MEDICARE, MEDICAID, SELFPAY ==
--- NOTE | 2021-04-20 17:22 | ED.PSYCH ---
HPI - Psych General Stated Complaint: SI, command auditory hallucinations to kill self Time Seen by Provider: 04/20/21 17:20 Source: patient and EMS Mode of arrival: EMS Limitations: no limitations History of Present Illness MD complaint: suicidal ideation, feels depressed and hallucinations Onset (ago): day(s) (3) Duration: constant History of same: Yes Relieving factors: none Exacerbating factors: none Associated psychiatric symptoms: depression, suicidal ideation, auditory hallucinations and visual hallucinations Associated symptoms: denies other symptoms Treatments prior to arrival: placed on mental health hold If self harm: admits thoughts of self harm and self-inflicted trauma (superficial linear lacerations to bilateral forearms with a piece of glass) Related Data Home Medications Medication Instructions Recorded Confirmed Flovent HFA 2 puff INHALATION BID 01/27/21 03/29/21 atorvastatin 1 tab PO BEDTIME 01/27/21 03/29/21 doxazosin 3 mg PO BEDTIME 01/27/21 03/29/21 lisinopril 1 tab PO DAILY 01/27/21 03/29/21 loratadine 1 tab PO DAILY PRN 01/27/21 03/29/21 metformin 1 tab PO BID@0900,1700 01/27/21 03/29/21 montelukast 1 tab PO BEDTIME 01/27/21 03/29/21 trazodone 1 tab PO BEDTIME 01/27/21 03/29/21 verapamil 1 tab PO BEDTIME 01/27/21 03/29/21 ferrous sulfate 1 tab PO DAILY 02/12/21 03/29/21 nicotine (polacrilex) [Nicorette] 2 mg BUCCAL Q2-4H PRN 02/12/21 03/29/21 pantoprazole [Protonix] 40 mg PO BID 02/12/21 03/29/21 polyethylene glycol 3350 [Miralax] 17 g PO DAILY PRN 02/12/21 03/29/21 chlorpromazine 50 mg PO DAILY PRN 03/17/21 03/29/21 Previous Rx's Medication Instructions Recorded albuterol sulfate [Ventolin HFA] 2 puff INHALATION RQ4H PRN #6.7 g 03/23/21 benztropine 1 mg PO BID #30 tab 03/23/21 haloperidol decanoate 100 mg IM Q28D #1 ml 03/23/21 naltrexone 50 mg PO DAILY #30 tab 03/23/21 nicotine 21 mg TRANSDERMAL DAILY #28 ea 03/23/21 clotrimazole 1 appl TOPICAL BID 14 Days #30 g 04/04/21 haloperidol 3 mg PO TID 30 Days #270 tab 04/04/21 Allergies Allergy/AdvReac Type Severity Reaction Status Date / Time Fish Containing Products Allergy Severe ANAPHYLAXIS Verified 04/20/21 17:39 codeine [Codeine] Allergy Unknown RASH Verified 04/20/21 17:39 Penicillins Allergy Unknown RASH Verified 04/20/21 17:39 prednisone [Prednisone] Allergy Unknown RASH Verified 04/20/21 17:39 Sulfa (Sulfonamide Allergy Unknown RASH Verified 04/20/21 17:39 Antibiotics) [Sulfa (Sulfonamides)] azithromycin [AZITHROMYCIN] AdvReac Severe RASH Verified 04/20/21 17:39 nicotine AdvReac Unknown HEART Verified 04/20/21 17:39 PALPITATION TO NICOTINE GUM Seafood Allergy Severe ANAPHYLAXIS Uncoded 07/01/20 16:44 From Geodon Allergy Unknown DYSURIA, Uncoded 07/01/20 16:44 RASH Review of Systems Review of Systems: Constitutional : No Fever, No Chills ENT/Mouth : No Ear Pain, No Nasal Congestion, No sore throat Eyes: No Eye Pain, No Swelling, No Redness Cardiovascular : No Chest Pain, No SOB Respiratory : No Cough, No Sputum, No Dyspnea Gastrointestinal : No Nausea, No Vomiting, No Diarrhea, No Hematochezia, No Melena Genitourinary : No Dysuria, No Urinary Frequency, No Hematuria Musculoskeletal : No Myalgias Skin : No Skin Lesions, No rash, pos skin lacerations Neuro : No Weakness, No Numbness, No Paresthesias, No Dizziness, No Headache Psych : positive Anxiety, positive Depression, positive SI no HI Heme/Lymph: No Lymphadenopathy Endocrine : No Polyuria, No Polydipsia All other systems reviewed and are negative [facility] Past Medical History Attestation statement: The following information was validated with the patient. Medical History Bronchitis GERD (gastroesophageal reflux disease) Hyperlipidemia Mood disorder Overdose PTSD (post-traumatic stress disorder) Social History Social History 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: Other 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 Other:: long-term with 4 others Housing: House Housing Other:: long term Alcohol intake: unknown Patient Tobacco Use Status: Current everyday Tobacco user Tobacco use type: Cigarette Cigarette Packs Per Day: 1 Cigarettes Per Day: 20.0 Years Smoked: 20 e-Cigarette/Vaping Use: Currently Using Second Hand Smoke Exposure: No Substance Use Type: Caffiene service: No Sexual orientation: Straight/Heterosexual Physical Exam Vital Signs: Appearance: Alert. Oriented X3. No acute distress. Eyes: Pupils equal, round and reactive to light. ENT: Pharynx normal. Neck: Normal inspection. Neck supple. CVS: Normal heart rate and rhythm. Pulses normal. Respiratory: No respiratory distress. Breath sounds normal. Abdomen: Soft and nontender. Skin: Skin warm and dry. Normal skin color. Normal skin turgor. Extremities: No lower extremity edema. No calf ttp bilateral anterior forearms superficial linear lacerations noted - multiple Neuro: Oriented X 3. No motor deficit. No sensory deficit. CN 2-12 grossly intact Psych: depressed, anxious, pacing, c/o SI and auditory hallucinations Course Course Course Narrative: Physician observation started at 538pm Patient placed in physician observation because the patient needed more time for BHN to evaluate for the need for inpatient psychiatry. At the time observation was started the patient's vitals were stable, patient is alert and oriented but slightly anxious, Neuro: nonfocal, CV RRR, Lungs clear MDM - Psych MDM Narrative Medical decision making narrative: 45 yo female well known to the ED for mental health issues c/o hallucinations, depression, linear superficial lacerations (does not need sutures) to bilateral forearms (unknown tetanus last given 2013 in our EMR) - she is anxious PO ativan ordered, labs ordered, BHN consult Discharge Plan Discharge Clinical Impression: Abrasion, Depression Prescriptions: No Action metformin 500 mg tablet 1 tab PO BID@0900,1700 RF: 0 atorvastatin 10 mg tablet 1 tab PO BEDTIME RF: 0 doxazosin 1 mg tablet 3 mg PO BEDTIME RF: 0 trazodone 150 mg tablet 1 tab PO BEDTIME RF: 0 verapamil 240 mg tablet extended release 1 tab PO BEDTIME RF: 0 montelukast 10 mg tablet 1 tab PO BEDTIME RF: 0 lisinopril 5 mg tablet 1 tab PO DAILY RF: 0 loratadine 10 mg tablet 1 tab PO DAILY PRN (Reason: Allergy Symptoms) RF: 0 Flovent HFA 110 mcg/actuation HFA aerosol inhaler 2 puff inhalation BID RF: 0 polyethylene glycol 3350 [Miralax] 17 gram Powder In Packet 17 g PO DAILY PRN (Reason: Constipation) RF: 0 pantoprazole [Protonix] 40 mg Tablet,Delayed Release (Dr/Ec) 40 mg PO BID RF: 0 ferrous sulfate 325 mg (65 mg iron) tablet,delayed release (DR/EC) 1 tab PO DAILY RF: 0 nicotine (polacrilex) [Nicorette] 2 mg Lozenge 2 mg BUCCAL Q2-4H PRN (Reason: Nicotine Cravings) RF: 0 chlorpromazine 25 mg Tablet 50 mg PO DAILY PRN (Reason: Anxiety) RF: 0 nicotine 21 mg/24 hr Patch 24 Hour 21 mg transdermal DAILY Qty: 28 RF: 0 albuterol sulfate [Ventolin HFA] 90 mcg/actuation Hfa Aerosol Inhaler 2 puff inhalation RQ4H PRN (Reason: Shortness Of Breath) Qty: 6.7 RF: 0 naltrexone 50 mg Tablet 50 mg PO DAILY Qty: 30 RF: 0 benztropine 1 mg Tablet 1 mg PO BID Qty: 30 RF: 0 haloperidol decanoate 50 mg/mL Solution 100 mg IM Q28D Qty: 1 RF: 0 haloperidol 1 mg Tablet 3 mg PO TID 30 Days Qty: 270 RF: 0 clotrimazole 1 % Cream 1 appl topical BID 14 Days Qty: 30 RF: 0
[2021-04-20] MEDS: LORazepam 1 MG TABLET PO (17:31)
[2021-04-20 17:40] VITALS: BP 131/91; BP 180/94; PULSE 115; PULSE 137; RESP 18; TEMP 36.5; O2SAT 94; O2SAT 96; BMI 36.3
[2021-04-20 18:11] LABS: COVID-19 Test Negative (Negative)
--- NOTE | 2021-04-20 18:17 | PC.NURSE ---
at arrival pt was anxious, picking, bang head against wall but now calmer, speaking with staff, eating dinner. wounds have been dressed.
[2021-04-20 18:22] LABS: MANUAL DIFF FLAG NO
[2021-04-20 18:23] LABS: Basophils Percent Auto 0.5 % (0-2); Eosinophils Absolute Auto 0.2 X10*3/uL (0.0-0.4); Eosinophils Percent Auto 2.6 % (0-4); Hematocrit 37.7 % (37-47); Hemoglobin 12.8 g/dl (12.0-16.0); Imm Gran Abs Auto 0.04 X10*3/uL (0.00-0.03); Imm Gran Pct Auto 0.5 % (0.0-0.4); Lymphocytes Absolute Auto 1.7 X10*3/uL (1.2-4.9); Lymphocytes Percent Auto 21.9 % (20-40); Mean Corpuscular Hemoglobin 30.6 pg (27.0-33.0); Mean Corpuscular Volume 90.2 fL (80-98); Mean Platelet Volume 9.6 fL (9.4-12.3); Monocytes Absolute Auto 0.6 X10*3/uL (0.1-1.2); Monocytes Percent Auto 7.5 % (2-11); Neutrophils Absolute Auto 5.1 X10*3/uL (2.0-8.3); Platelet Count 296 X10*3/uL (160-400); Red Blood Count 4.18 X10*6/uL (4.20-5.50); Red Cell Distribution Width 12.8 % (11.0-16.0); White Blood Count 7.6 X10*3/uL (4.8-10.8)
[2021-04-20 18:28] LABS: Amphetamine Screen Urine Not Detected (Not Detect); Barbiturates, Urine Not Detected (Not Detect); Benzodiazepines Screen Urine Not Detected (Not Detect); Cannabinoid Screen Urine Not Detected (Not Detect); Cocaine Screen Urine Not Detected (Not Detect); Opiate Screen Urine Not Detected (Not Detect); Phencyclidine Screen Urine Not Detected (Not Detect)
[2021-04-20 18:51] LABS: Anion Gap 16 (12-20); Blood Urea Nitrogen 13 mg/dL (9-16); Calcium 9.5 mg/dL (8.4-10.2); Carbon Dioxide 23 mmol/L (22-29); Chloride 101 mmol/L (96-108); Creatinine Clr Calc Pharmacy 103.3; Estimated Glomerular Filt Rate > 60; Glucose Random 110 mg/dL (60-115); Potassium 4.1 mmol/L (3.3-5.1); Sodium 136 mmol/L (135-145)
[2021-04-20 18:53] LABS: Alanine Aminotransferase 9 U/L (0-31); Albumin Level 4.5 g/dL (3.5-5.0); Alkaline Phosphatase 95 U/L (39-117); Aspartate Amino Transferase 12 U/L (5-31); Bilirubin Direct 0.2 mg/dL (0.0-0.5); Bilirubin Total 0.4 mg/dL (0.0-1.0); Total Protein 7.1 g/dL (6.5-8.0)
[2021-04-20] MEDS: Diphth,Pertus(ACell),Tet Adult 0.5 ML SYRINGE IM (19:04)
[2021-04-21 00:15] VITALS: BP 112/82; PULSE 90; RESP 17; TEMP 36.8; O2SAT 95
--- NOTE | 2021-04-21 01:47 | PC.NURSE ---
Patient in bed appears sleeping, no distress observed/reported, patient got seen by N, patient reported to [facility] she is feeling safe and ok to go back to [facility], disposition is d/c in the morning, care team will arrange ride, will continue to monitor.
[2021-04-21] MEDS: Omeprazole 20 MG CAPSULE.DR PO (06:03)
--- NOTE | 2021-04-21 06:13 | PC.NURSE ---
Patient slept through the night, compliant with medication, disposition d/c in AM back to [facility], care team to arrange ride, no distress observed/reported, will continue to monitor.
--- NOTE | 2021-04-21 06:56 | PC.NURSE ---
patient appears to remain at rest at present respirations are even and unlabored, patient appears in no distress
--- NOTE | 2021-04-21 07:00 | PC.NURSE ---
patient remains at rest at present patient appears in no distress, respirations even and unlabored
[2021-04-21] MEDS: Albuterol Sulfate 90 MCG 8 GM INHALER 2 PUFF INHALE (08:28)
[2021-04-21] MEDS: Fluticasone Propionate 100 MCG BLST.W.DEV 2 PUFF INHALE (08:28)
[2021-04-21] MEDS: metFORMIN HCl 500 MG TABLET PO (08:28)
[2021-04-21 08:30] VITALS: BP 112/82; PULSE 90
[2021-04-21] MEDS: HaloperidoL 1 MG TABLET 3 MG PO (08:30)
[2021-04-21] MEDS: lisinopriL 5 MG TABLET PO (08:30)
[2021-04-21] MEDS: Naltrexone HCl 50 MG TABLET PO (08:31)
[2021-04-21] MEDS: Ferrous Sulfate 324 MG TABLET.DR PO (08:31)
[2021-04-21] MEDS: Benztropine Mesylate 1 MG TABLET PO (08:31)
[2021-04-21 08:33] VITALS: BP 99/77; PULSE 121; RESP 14; TEMP 36.7; O2SAT 94
== END 2021-04-21 08:56 | disposition home or self-care (01) ==
PROVIDERS: Emergency Provider Emergency Medicine; PCP Internal Medicine
DX: F32.9 Major depressive disorder, single episode, unspecified (principal); S50.812A Abrasion of left forearm, initial encounter; S50.811A Abrasion of right forearm, initial encounter; F43.10 Post-traumatic stress disorder, unspecified; E78.5 Hyperlipidemia, unspecified; Z79.899 Other long term (current) drug therapy; X78.0XXA Intentional self-harm by sharp glass, initial encounter; Y93.9 Activity, unspecified; Y92.9 Unspecified place or not applicable; Y99.9 Unspecified external cause status; Z20.822 Contact with and (suspected) exposure to COVID-19
CPT/HCPCS: 36415; 80048; 80076; 80307; 85025; 87635; 90471; 90715; 96374; 99284; 99285

== ENCOUNTER 2021-04-25 20:32 | Emergency (ER) | payer MEDICARE, MEDICAID, SELFPAY ==
[2021-04-25 20:43] VITALS: BP 147/93; PULSE 129; RESP 17; TEMP 36.8; O2SAT 97; BMI 35.2
[2021-04-25 20:54] VITALS: BP 147/93; PULSE 129; RESP 17; TEMP 36.8; O2SAT 97
--- NOTE | 2021-04-25 21:13 | ED_ITS ---
HPI - General Adult General Chief complaint: Psychiatric Symptoms <TIMI Dong - Last Filed: 04/26/21 02:13> Stated complaint: crisis/si <TIMI Dong - Last Filed: 04/26/21 02:13> Time Seen by Provider: 04/25/21 22:49 <TIMI Dong - Last Filed: 04/26/21 02:13> Source: patient <TIMI Dong - Last Filed: 04/26/21 02:13> Mode of arrival: ambulatory <TIMI Dong - Last Filed: 04/26/21 02:13> Limitations: no limitations <TIMI Dong Last Filed: 04/26/21 02:13> History of Present Illness HPI narrative: Patient presents to the ED for auditory/visual hallucinations ton her to commit suicide. Patient's anniversary of her father's is near and exacerbated her hallucinations. Patient has plans to overdose on medication <TIMI Dong Last Filed: 04/26/21 02:13> Related Data Home medications: Home Medications Medication Instructions Recorded Confirmed Flovent HFA 2 puff INHALATION BID 01/27/21 04/25/21 atorvastatin 1 tab PO BEDTIME 01/27/21 04/25/21 doxazosin 3 mg PO BEDTIME 01/27/21 04/25/21 lisinopril 1 tab PO DAILY 01/27/21 04/25/21 metformin 1 tab PO BID@0900,1700 01/27/21 04/25/21 montelukast 1 tab PO BEDTIME 01/27/21 04/25/21 trazodone 1 tab PO BEDTIME 01/27/21 04/25/21 verapamil 240 mg PO BEDTIME 01/27/21 04/25/21 ferrous sulfate 1 tab PO DAILY 02/12/21 04/25/21 pantoprazole [Protonix] 40 mg PO BID 02/12/21 04/25/21 polyethylene glycol 3350 [Miralax] 17 g PO DAILY PRN 02/12/21 04/25/21 chlorpromazine 50 mg PO DAILY PRN 03/17/21 04/25/21 loratadine 1 tab PO DAILY 04/25/21 04/25/21 Previous Rx's Medication Instructions Recorded albuterol sulfate [Ventolin HFA] 2 puff INHALATION RQ4H PRN #6.7 g 03/23/21 benztropine 1 mg PO BID #30 tab 03/23/21 haloperidol decanoate 100 mg IM Q28D #1 ml 03/23/21 naltrexone 50 mg PO DAILY #30 tab 03/23/21 nicotine 21 mg TRANSDERMAL DAILY #28 ea 03/23/21 haloperidol 3 mg PO TID 30 Days #270 tab 04/04/21 <TIMI Dong - Last Filed: 04/26/21 02:13> Allergies/adverse reactions: Allergies Allergy/AdvReac Type Severity Reaction Status Date / Time Fish Containing Products Allergy Severe ANAPHYLAXIS Verified 04/20/21 17:39 codeine [Codeine] Allergy Unknown RASH Verified 04/20/21 17:39 Penicillins Allergy Unknown RASH Verified 04/20/21 17:39 prednisone [Prednisone] Allergy Unknown RASH Verified 04/20/21 17:39 Sulfa (Sulfonamide Allergy Unknown RASH Verified 04/20/21 17:39 Antibiotics) [Sulfa (Sulfonamides)] azithromycin [AZITHROMYCIN] AdvReac Severe RASH Verified 04/20/21 17:39 nicotine AdvReac Unknown HEART Verified 04/20/21 17:39 PALPITATION TO NICOTINE GUM Seafood Allergy Severe ANAPHYLAXIS Uncoded 07/01/20 16:44 From Geodon Allergy Unknown DYSURIA, Uncoded 07/01/20 16:44 RASH <TIMI Dong - Last Filed: 04/26/21 02:13> Review of Systems Review of Systems: Yes all other systems are reviewed and are negative <TIMI Dong - Last Filed: 04/26/21 02:13> Constitutional: Constitutional: Reports as per HPI and Reports no additional constitutional complaints <TIMI Dong - Last Filed: 04/26/21 02:13> Eyes: Eyes: Reports as per HPI and Reports no additional eye complaints <TIMI Dong Last Filed: 04/26/21 02:13> ENT: Reports system reviewed and no additional complaints, except as documented and Reports as per HPI <TIMI Dong Last Filed: 04/26/21 02:13> Cardiovascular: Cardiovascular: Reports as per HPI and Reports no additional cardiovascular complaints <TIMI Dong - Last Filed: 04/26/21 02:13> Respiratory: Respiratory: Reports as per HPI and Reports no additional respiratory complaints <TIMI Dong Last Filed: 04/26/21 02:13> Gastrointestinal: Gastrointestinal: Reports as per HPI and Reports no additional gastrointestinal complaints <TIMI Dong - Last Filed: 04/26/21 02:13> Genitourinary: Genitourinary: Reports no additional female genitourinary complaints and Reports as per HPI <TIMI Dong - Last Filed: 04/26/21 02:13> Musculoskeletal: Musculoskeletal: Reports no additional musculoskeletal complaints and Reports as per HPI <TIMI Dong Last Filed: 04/26/21 02:13> Neurologic: Reports system reviewed and no additional complaints, except as documented and Reports as per HPI <TIMI Dogn Last Filed: 04/26/21 02:13> Psychiatric: Psychiatric: Reports depression and Reports suicidal ideation <TIMI Dong Last Filed: 04/26/21 02:13> [facility] Past Medical History Medical History: Medical History Bronchitis GERD (gastroesophageal reflux disease) Hyperlipidemia Mood disorder Overdose PTSD (post-traumatic stress disorder) <TIMI Dong - Last Filed: 04/26/21 02:13> Social History Social History: Social History 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: Other 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 Other:: custodial with 4 others Housing: House Housing Other:: [facility] Alcohol intake: unknown Patient Tobacco Use Status: Current everyday Tobacco user Tobacco use type: Cigarette Cigarette Packs Per Day: 1 Cigarettes Per Day: 20.0 Years Smoked: 20 e-Cigarette/Vaping Use: Currently Using Second Hand Smoke Exposure: No Substance Use Type: Caffiene Advance Directives: No Advance Directives Information Provided: Yes Patient : No service: No Sexual orientation: Straight/Heterosexual <TIMI Dong Last Filed: 04/26/21 02:13> Physical Exam Vital Signs: Vital Signs: Last Vital Signs Temp 97.7 F 04/25/21 23:18 Pulse 89 04/25/21 23:18 Resp 17 04/25/21 23:18 BP 131/85 04/25/21 23:18 Pulse Ox 96 04/25/21 23:18 Body Mass Index 35.2 <TIMI Dong Last Filed: 04/26/21 02:13> Vital Signs: Last Vital Signs Temp 97.7 F 04/25/21 23:18 Pulse 89 04/25/21 23:18 Resp 17 04/25/21 23:18 BP 131/85 04/25/21 23:18 Pulse Ox 96 04/25/21 23:18 Body Mass Index 35.2 <TIMI Lopez Last Filed: 04/26/21 08:32> Const: General: cooperative, healthy appearing, comfortable, no acute distress, well developed, alert and awake <TIMI Dong Last Filed: 04/26/21 02:13> Orientation/consciousness: patient oriented x3 <TIMI Dong Last Filed: 04/26/21 02:13> HENMT: Head: Yes normal to inspection, Yes No palpable skull fracture present, Yes normocephalic, Yes atraumatic and No abrasion <TIMI Dong Last Filed: 04/26/21 02:13> Eyes: General: appearance normal, both eyes and all related structures <TIMI Dong Last Filed: 04/26/21 02:13> Neck: Neck: Yes normal visual inspection, Yes full ROM, Yes no lymphadenopathy, Yes no meningeal signs, Yes trachea midline, Yes supple and No tender <TIMI Dogn Last Filed: 04/26/21 02:13> Chest: Chest palpation & inspection: normal inspection of the chest and normal palpation of entire chest wall <TIMI Dong Last Filed: 04/26/21 02:13> Resp: Effort & Inspection: normal respiratory effort and able to speak in complete sentences <TIMI Dong Last Filed: 04/26/21 02:13> Cardio: Jugular venous distension: no JVD <TIMI Dong Last Filed: 04/26/21 02:13> Heart sounds: S1 normal heart sound present and S2 normal heart sound present <TIMI Dong Last Filed: 04/26/21 02:13> GI: Inspection: Yes normal to inspection and No abdominal wall ecchymosis <TIMI Dong Last Filed: 04/26/21 02:13> Palpation (GI): Soft to palpation, not firm, nontender, no guarding and not rigid <TIMI Dong Last Filed: 04/26/21 02:13> : General: No CVA tenderness and Yes no CVA tenderness <TIMI Dong Last Filed: 04/26/21 02:13> Back/Spine/Pelvis: Back: no CVA tenderness, No CVA tenderness and No back tenderness <TIMI Dong Last Filed: 04/26/21 02:13> Skin: General skin exam: no rashes or lesions noted and elasticity normal <TIMI Dong Last Filed: 04/26/21 02:13> Neuro: General: patient oriented x3, gait normal, no meningeal signs and CN's II-XI intact bilaterally <TIMI Dong Last Filed: 04/26/21 02:13> Cranial nerves: Yes CN's II-XII intact bilaterally <TIMI Dong Last Filed: 04/26/21 02:13> Extrem: General: Yes normal to inspection and Yes full ROM <TIMI Dong Last Filed: 04/26/21 02:13> Psych: Appearance: grossly normal, well kempt and not disheveled <TIMI Dong Last Filed: 04/26/21 02:13> Thought content: Suicidality present and Depressive thoughts present <TIMI Dong Last Filed: 04/26/21 02:13> Course Course Course Narrative: Patient have DS and await [facility] nurse evaluation. <TIMI Dong Last Filed: 04/26/21 02:13> Physician observation started at 8:30am. Patient placed in physician observation because patient is awaiting [facility] evaluation for the possible need of inpatient psych admission. At the time observation was started patient's vital signs were stable. Patient is alert and oriented. Neuro exam is non-focal. CV: RRR and lungs are clear. Will continue to monitor. <TIMI Lopez Last Filed: 04/26/21 08:32> Reevaluation(s) Reevaluation #1: Patient awaiting N evaluation <TIMI Dong - Last Filed: 04/26/21 02:13> Time: 02:13 <TIMI Dong - Last Filed: 04/26/21 02:13> Medical Decision Making Lab Data Labs: Lab Results 04/25/21 04/25/21 Range/Units 21:04 21:04 Urine Opiates Screen Not Detected (Not Detect) Ur Barbiturates Screen Not Detected (Not Detect) Ur Phencyclidine Scrn Not Detected (Not Detect) Ur Amphetamines Screen Not Detected (Not Detect) U Benzodiazepines Scrn Not Detected (Not Detect) Urine Cocaine Screen Not Detected (Not Detect) U Marijuana (THC) Screen Not Detected (Not Detect) COVID-19 (NICK) Negative (Negative) COVID-Phokki See Note <TIMI Dong - Last Filed: 04/26/21 02:13> Lab Results 04/25/21 07 Range/Units 21:04 21:04 Urine Opiates Screen Not Detected (Not Detect) Ur Barbiturates Screen Not Detected (Not Detect) Ur Phencyclidine Scrn Not Detected (Not Detect) Ur Amphetamines Screen Not Detected (Not Detect) U Benzodiazepines Scrn Not Detected (Not Detect) Urine Cocaine Screen Not Detected (Not Detect) U Marijuana (THC) Screen Not Detected (Not Detect) COVID-19 (NICK) Negative (Negative) COVIDDSI MET-TECH See Note <TIMI Lopez - Last Filed: 04/26/21 08:32> Discharge Plan Discharge Prescriptions: No Action metformin 500 mg tablet 1 tab PO BID@0900,1700 RF: 0 atorvastatin 10 mg tablet 1 tab PO BEDTIME RF: 0 doxazosin 1 mg tablet 3 mg PO BEDTIME RF: 0 trazodone 150 mg tablet 1 tab PO BEDTIME RF: 0 verapamil 240 mg tablet extended release 240 mg PO BEDTIME RF: 0 montelukast 10 mg tablet 1 tab PO BEDTIME RF: 0 lisinopril 5 mg tablet 1 tab PO DAILY RF: 0 Flovent HFA 110 mcg/actuation HFA aerosol inhaler 2 puff inhalation BID RF: 0 polyethylene glycol 3350 [Miralax] 17 gram Powder In Packet 17 g PO DAILY PRN (Reason: Constipation) RF: 0 pantoprazole [Protonix] 40 mg Tablet,Delayed Release (Dr/Ec) 40 mg PO BID RF: 0 ferrous sulfate 325 mg (65 mg iron) tablet,delayed release (DR/EC) 1 tab PO DAILY RF: 0 chlorpromazine 25 mg Tablet 50 mg PO DAILY PRN (Reason: Anxiety) RF: 0 nicotine 21 mg/24 hr Patch 24 Hour 21 mg transdermal DAILY Qty: 28 RF: 0 albuterol sulfate [Ventolin HFA] 90 mcg/actuation Hfa Aerosol Inhaler 2 puff inhalation RQ4H PRN (Reason: Shortness Of Breath) Qty: 6.7 RF: 0 naltrexone 50 mg Tablet 50 mg PO DAILY Qty: 30 RF: 0 benztropine 1 mg Tablet 1 mg PO BID Qty: 30 RF: 0 haloperidol decanoate 50 mg/mL Solution 100 mg IM Q28D Qty: 1 RF: 0 haloperidol 1 mg Tablet 3 mg PO TID 30 Days Qty: 270 RF: 0 loratadine 10 mg tablet 1 tab PO DAILY RF: 0 <TIMI Dong - Last Filed: 04/26/21 02:13>
[2021-04-25 21:31] LABS: COVID-19 Test Negative (Negative)
[2021-04-25 21:32] LABS: Amphetamine Screen Urine Not Detected (Not Detect); Barbiturates, Urine Not Detected (Not Detect); Benzodiazepines Screen Urine Not Detected (Not Detect); Cannabinoid Screen Urine Not Detected (Not Detect); Cocaine Screen Urine Not Detected (Not Detect); Opiate Screen Urine Not Detected (Not Detect); Phencyclidine Screen Urine Not Detected (Not Detect)
--- NOTE | 2021-04-25 21:44 | PC.NURSE ---
Patient calm and quiet, N referral completed via Smart-sheet, called spoke with Howard CEVALLOS military logistics specialist/confirmed receipt of referral, NO ETA. Med rec completed/pending provider's approval. will continue to monitor.
[2021-04-25] MEDS: VerapamiL HCL SR 120 MG TABLET.ER 240 MG PO (23:03)
[2021-04-25 23:04] VITALS: BP 131/85; PULSE 89
[2021-04-25] MEDS: Atorvastatin Calcium 10 MG TABLET PO (23:04)
[2021-04-25] MEDS: Doxazosin Mesylate 1 MG TABLET 3 MG PO (23:04)
[2021-04-25] MEDS: metFORMIN HCl 500 MG TABLET PO (23:08)
[2021-04-25] MEDS: traZODone HCL 50 MG TABLET 150 MG PO (23:08)
[2021-04-25] MEDS: Benztropine Mesylate 1 MG TABLET PO (23:08)
[2021-04-25] MEDS: Montelukast Sodium 10 MG TABLET PO (23:09)
[2021-04-25] MEDS: HaloperidoL 1 MG TABLET 3 MG PO (23:11)
[2021-04-25 23:18] VITALS: BP 131/85; PULSE 89; RESP 17; TEMP 36.5; O2SAT 96
--- NOTE | 2021-04-25 23:18 | PC.NURSE ---
Nighttime medication administered as ordered, patient compliant, [facility] clinician called and notified this travel writer that no clinician overnight to assess the patient, patient will be evaluated in the morning, patient aware, will continue to monitor.
[2021-04-26] MEDS: Omeprazole 20 MG CAPSULE.DR PO (05:55)
--- NOTE | 2021-04-26 06:10 | PC.NURSE ---
Patient slept through the night, no distress observed/reported, VSS, med rec completed, patient compliant with medication, awaiting [facility]N assessment in the morning, referral completed via smart-sheet, will continue to monitor.
--- NOTE | 2021-04-26 07:09 | PC.NURSE ---
patient appears at rest at present respirations are even and unlabored patient appears in no distress
[2021-04-26 08:34] VITALS: BP 131/85; PULSE 89
[2021-04-26] MEDS: Naltrexone HCl 50 MG TABLET PO (08:34)
[2021-04-26] MEDS: Loratadine 10 MG TABLET PO (08:34)
[2021-04-26] MEDS: lisinopriL 5 MG TABLET PO (08:34)
[2021-04-26] MEDS: Benztropine Mesylate 1 MG TABLET PO (08:34)
[2021-04-26] MEDS: Ferrous Sulfate 324 MG TABLET.DR PO (08:34)
[2021-04-26] MEDS: metFORMIN HCl 500 MG TABLET PO (08:34)
[2021-04-26] MEDS: Nicotine 21 MG PATCH.TD24 TRANSDERMA (08:34)
[2021-04-26] MEDS: HaloperidoL 1 MG TABLET 3 MG PO (08:34)
[2021-04-26 09:19] LABS: Anion Gap 15 (12-20); Blood Urea Nitrogen 11 mg/dL (9-16); Carbon Dioxide 23 mmol/L (22-29); Chloride 107 mmol/L (96-108); Estimated Glomerular Filt Rate > 60; Glucose Random 108 mg/dL (60-115); Potassium 4.1 mmol/L (3.3-5.1); Sodium 141 mmol/L (135-145)
--- NOTE | 2021-04-26 12:37 | MHC.CARE ---
CARE Team met with this patient in [facility] who came to the ED by ambulance last night with suicidal thoughts. Today patient denied any plan to harm herself or to attempt to end her life. Patient explained that it is the anniversary of her fianc??s ; historically she can is triggered by dates related to strong emotions or losses. Provided reflective listening, validation and reflective listening. Patient is requesting discharge back to her assisted; she is looking forward to a job interview tomorrow, followed by a session with her therapist. Left message for [facility] staff at 11:50, if they are in agreement and do not have concerns the plan is to discharge patient to her current providers. Discussed case with insulation supervisor and
--- NOTE | 2021-04-26 14:28 | MHC.CARE ---
Spoke to group product manager, Toni, who has no concerns about patient returning home and will pick her up shortly.
== END 2021-04-26 17:12 | disposition home or self-care (01) ==
PROVIDERS: Internal Medicine; Physician Assistant; Emergency Provider Emergency Medicine
DX: R44.0 Auditory hallucinations (principal); R45.851 Suicidal ideations; F43.10 Post-traumatic stress disorder, unspecified; F17.210 Nicotine dependence, cigarettes, uncomplicated; Z71.6 Tobacco abuse counseling; Z79.899 Other long term (current) drug therapy; Z20.822 Contact with and (suspected) exposure to COVID-19
CPT/HCPCS: 36415; 80048; 80307; 87635; 96372; 99284; 99285

== ENCOUNTER 2021-05-02 13:15 | Inpatient (IN) | payer MEDICARE, MEDICAID, SELFPAY ==
[2021-05-02 13:19] VITALS: BP 148/86; PULSE 125; O2SAT 98
--- NOTE | 2021-05-02 13:30 | ED_ITS ---
HPI - Psych General Chief Complaint: Psychiatric Symptoms Stated Complaint: section 12, forearm lacerations Time Seen by Provider: 05/02/21 13:20 Source: patient and EMS Mode of arrival: EMS Limitations: no limitations History of Present Illness MD complaint: suicidal ideation, feels depressed, anxiety and hallucinations Onset (ago): hour(s) Duration: constant History of same: Yes Relieving factors: none Exacerbating factors: none Context: significant life stressor Associated psychiatric symptoms: suicidal ideation, racing thoughts, auditory hallucinations and visual hallucinations Associated symptoms: denies other symptoms If self harm: admits thoughts of self harm and self-inflicted trauma (linear superficial abrasions L forearm) Related Data Home Medications Medication Instructions Recorded Confirmed Flovent HFA 2 puff INHALATION BID 01/27/21 05/02/21 atorvastatin 10 mg PO BEDTIME 01/27/21 05/02/21 doxazosin 3 mg PO BEDTIME 01/27/21 05/02/21 lisinopril 5 mg PO DAILY 01/27/21 05/02/21 metformin 500 mg PO BID@0900,1700 01/27/21 05/02/21 montelukast 10 mg PO BEDTIME 01/27/21 05/02/21 trazodone 150 mg PO BEDTIME 01/27/21 05/02/21 verapamil 240 mg PO BEDTIME 01/27/21 05/02/21 ferrous sulfate 325 mg PO DAILY 02/12/21 05/02/21 pantoprazole [Protonix] 40 mg PO BID 02/12/21 05/02/21 polyethylene glycol 3350 [Miralax] 17 g PO DAILY PRN 02/12/21 05/02/21 loratadine 10 mg PO DAILY 04/25/21 05/02/21 chlorpromazine 50 mg PO DAILY PRN 05/02/21 05/02/21 clotrimazole 1 applic TOPICAL BID 05/02/21 05/02/21 nicotine (polacrilex) 2 mg BUCCAL Q2H PRN 05/02/21 05/02/21 Previous Rx's Medication Instructions Recorded albuterol sulfate [Ventolin HFA] 2 puff INHALATION RQ4H PRN #6.7 g 03/23/21 benztropine 1 mg PO BID #30 tab 03/23/21 haloperidol decanoate 100 mg IM Q28D #1 ml 03/23/21 naltrexone 50 mg PO DAILY #30 tab 03/23/21 haloperidol 3 mg PO TID 30 Days #270 tab 04/04/21 Allergies Allergy/AdvReac Type Severity Reaction Status Date / Time Fish Containing Products Allergy Severe ANAPHYLAXIS Verified 04/20/21 17:39 codeine [Codeine] Allergy Unknown RASH Verified 04/20/21 17:39 Penicillins Allergy Unknown RASH Verified 04/20/21 17:39 prednisone [Prednisone] Allergy Unknown RASH Verified 04/20/21 17:39 Sulfa (Sulfonamide Allergy Unknown RASH Verified 04/20/21 17:39 Antibiotics) [Sulfa (Sulfonamides)] azithromycin [AZITHROMYCIN] AdvReac Severe RASH Verified 04/20/21 17:39 nicotine AdvReac Unknown HEART Verified 04/20/21 17:39 PALPITATION TO NICOTINE GUM Seafood Allergy Severe ANAPHYLAXIS Uncoded 07/01/20 16:44 From Geodon Allergy Unknown DYSURIA, Uncoded 07/01/20 16:44 RASH Review of Systems Review of Systems: Constitutional : No Fever, No Chills ENT/Mouth : No Ear Pain, No Nasal Congestion, No sore throat Eyes: No Eye Pain, No Swelling, No Redness Cardiovascular : No Chest Pain, No SOB Respiratory : No Cough, No Sputum, No Dyspnea Gastrointestinal : No Nausea, No Vomiting, No Diarrhea, No Hematochezia, No Melena Genitourinary : No Dysuria, No Urinary Frequency, No Hematuria Musculoskeletal : No Myalgias Skin : No Skin Lesions, No rash Neuro : No Weakness, No Numbness, No Paresthesias, No Dizziness, No Headache Psych : positive Anxiety, positive Depression, positive SI, no HI Heme/Lymph: No Lymphadenopathy Endocrine : No Polyuria, No Polydipsia All other systems reviewed and are negative [facility] Past Medical History Attestation statement: The following information was validated with the patient. Medical History Bronchitis GERD (gastroesophageal reflux disease) Hyperlipidemia Mood disorder Overdose PTSD (post-traumatic stress disorder) Social History Social History 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: Other 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 Other:: [facility] with 4 others Housing: House Housing Other:: shelter Alcohol intake: unknown Patient Tobacco Use Status: Current everyday Tobacco user Tobacco use type: Cigarette Cigarette Packs Per Day: 1 Cigarettes Per Day: 20.0 Years Smoked: 20 e-Cigarette/Vaping Use: Currently Using Second Hand Smoke Exposure: No Substance Use Type: Caffiene Advance Directives: No Advance Directives Information Provided: No Patient : No service: No Sexual orientation: Straight/Heterosexual Physical Exam Vital Signs: Vital Signs: Last Vital Signs Temp 99.5 F 05/02/21 13:31 Pulse 84 05/02/21 13:31 Resp 16 05/02/21 13:31 BP 149/84 H 05/02/21 13:31 Pulse Ox 98 05/02/21 13:31 Body Mass Index 33.3 Appearance: Alert. Oriented X3. No acute distress. Anxious, tearful Eyes: Pupils equal, round and reactive to light. ENT: Pharynx normal. Neck: Normal inspection. Neck supple. CVS: Normal heart rate and rhythm. Pulses normal. Respiratory: No respiratory distress. Breath sounds normal. Abdomen: Soft and non-tender. Skin: Skin warm and dry. Normal skin color. Normal skin turgor. Extremities: No lower extremity edema. No calf ttp superficial linear abrasions to left forearm Neuro: Oriented X 3. No motor deficit. No sensory deficit. Psych: anxiety, depressed, tearful, vague SI Course Course Course Narrative: Physician observation started at 655pm. Patient placed in physician observation because the patient needs more time for BHN evaluation and to assess the need for inpatient psychiatry. At the time observation was started the patient's vitals were stable, patient is alert and oriented much improved after ativan, Neuro: nonfocal, CV RRR, Lungs clear signed out pending N disposition, possible admit tomorrow MDM - Psych MDM Narrative Medical decision making narrative: 45 yo female with hx of mental health issues comes in with superficial abrasions to L forearm and racing thoughts PTSD, labs, BHN consult, PRN PO ativan for anxiety Lab Data Result diagrams: 05/02/21 13:39 05/02/21 13:39 Labs: Lab Results 05/02/21 05/02/21 05/02/21 Range/Units 13:39 13:39 13:39 WBC 6.6 (4.8-10.8) X10*3/uL RBC 4.28 (4.20-5.50) X10*6/uL Hgb 13.1 (12.0-16.0) g/dl Hct 38.6 (37-47) % MCV 90.2 (80-98) fL MCH 30.6 (27.0-33.0) pg MCHC 33.9 (31.0-35.0) g/dl RDW 12.6 (11.0-16.0) % Plt Count 266 (160-400) X10*3/uL MPV 9.8 (9.4-12.3) fL Immature Gran % (Auto) 0.3 (0.0-0.4) % Neut % (Auto) 68.1 (45-73) % Lymph % (Auto) 21.2 (20-40) % Berrien % (Auto) 8.6 (2-11) % Eos % (Auto) 1.5 (0-4) % Baso % (Auto) 0.3 (0-2) % Lymph # (Auto) 1.4 (1.2-4.9) X10*3/uL [place] # (Auto) 0.6 (0.1-1.2) X10*3/uL Eos # (Auto) 0.1 (0.0-0.4) X10*3/uL Baso # (Auto) 0.0 (0.0-0.2) X10*3/uL Abs Immat Gran (auto) 0.02 (0.00-0.03) X10*3/uL Absolute Neuts (auto) 4.5 (2.0-8.3) X10*3/uL Absolute Nucleated RBC 0.000 (0.0-0.012) X10*3/uL Nucleated RBC % (auto) 0.0 (0.0-0.2) /100WBC Sodium 138 (135-145) mmol/L Potassium 3.9 (3.3-5.1) mmol/L Chloride 106 (96-108) mmol/L Carbon Dioxide 24 (22-29) mmol/L Anion Gap 12 (12-20) BUN 8 L (9-16) mg/dL Creatinine 0.75 (0.5-1.4) mg/dL Estim Creat Clear Calc 107.6 Estimated GFR > 60 Random Glucose 109 (60-115) mg/dL Calcium 9.4 (8.4-10.2) mg/dL Urine Opiates Screen (Not Detect) Ur Barbiturates Screen (Not Detect) Ur Phencyclidine Scrn (Not Detect) Ur Amphetamines Screen (Not Detect) U Benzodiazepines Scrn (Not Detect) Urine Cocaine Screen (Not Detect) U Marijuana (THC) Screen (Not Detect) COVID-19 (NICK) Negative (Negative) COVID-19 Clin Com See Note 05/02/21 Range/Units 13:39 WBC (4.8-10.8) X10*3/uL RBC (4.20-5.50) X10*6/uL Hgb (12.0-16.0) g/dl Hct (37-47) % MCV (80-98) fL MCH (27.0-33.0) pg MCHC (31.0-35.0) g/dl RDW (11.0-16.0) % Plt Count (160-400) X10*3/uL MPV (9.4-12.3) fL Immature Gran % (Auto) (0.0-0.4) % Neut % (Auto) (45-73) % Lymph % (Auto) (20-40) % Berrien % (Auto) (2-11) % Eos % (Auto) (0-4) % Baso % (Auto) (0-2) % Lymph # (Auto) (1.2-4.9) X10*3/uL [place] # (Auto) (0.1-1.2) X10*3/uL Eos # (Auto) (0.0-0.4) X10*3/uL Baso # (Auto) (0.0-0.2) X10*3/uL Abs Immat Gran (auto) (0.00-0.03) X10*3/uL Absolute Neuts (auto) (2.0-8.3) X10*3/uL Absolute Nucleated RBC (0.0-0.012) X10*3/uL Nucleated RBC % (auto) (0.0-0.2) /100WBC Sodium (135-145) mmol/L Potassium (3.3-5.1) mmol/L Chloride (96-108) mmol/L Carbon Dioxide (22-29) mmol/L Anion Gap (12-20) BUN (9-16) mg/dL Creatinine (0.5-1.4) mg/dL Estim Creat Clear Calc Estimated GFR Random Glucose (60-115) mg/dL Calcium (8.4-10.2) mg/dL Urine Opiates Screen Not Detected (Not Detect) Ur Barbiturates Screen Not Detected (Not Detect) Ur Phencyclidine Scrn Not Detected (Not Detect) Ur Amphetamines Screen Not Detected (Not Detect) U Benzodiazepines Scrn Not Detected (Not Detect) Urine Cocaine Screen Not Detected (Not Detect) U Marijuana (THC) Screen Not Detected (Not Detect) COVID-19 (NICK) (Negative) COVID-19 Clin Com Discharge Plan Discharge Clinical Impression: PTSD (post-traumatic stress disorder), Abrasion Prescriptions: No Action metformin 500 mg tablet 500 mg PO BID@0900,1700 RF: 0 atorvastatin 10 mg tablet 10 mg PO BEDTIME RF: 0 doxazosin 1 mg tablet 3 mg PO BEDTIME RF: 0 trazodone 150 mg tablet 150 mg PO BEDTIME RF: 0 verapamil 240 mg tablet extended release 240 mg PO BEDTIME RF: 0 montelukast 10 mg tablet 10 mg PO BEDTIME RF: 0 lisinopril 5 mg tablet 5 mg PO DAILY RF: 0 Flovent HFA 110 mcg/actuation HFA aerosol inhaler 2 puff inhalation BID RF: 0 polyethylene glycol 3350 [Miralax] 17 gram Powder In Packet 17 g PO DAILY PRN (Reason: Constipation) RF: 0 pantoprazole [Protonix] 40 mg Tablet,Delayed Release (Dr/Ec) 40 mg PO BID RF: 0 ferrous sulfate 325 mg (65 mg iron) tablet,delayed release (DR/EC) 325 mg PO DAILY RF: 0 albuterol sulfate [Ventolin HFA] 90 mcg/actuation Hfa Aerosol Inhaler 2 puff inhalation RQ4H PRN (Reason: Shortness Of Breath) Qty: 6.7 RF: 0 naltrexone 50 mg Tablet 50 mg PO DAILY Qty: 30 RF: 0 benztropine 1 mg Tablet 1 mg PO BID Qty: 30 RF: 0 haloperidol decanoate 50 mg/mL Solution 100 mg IM Q28D Qty: 1 RF: 0 clotrimazole 1 % cream 1 applic topical BID RF: 0 chlorpromazine 50 mg Tablet 50 mg PO DAILY PRN (Reason: Psychosis) RF: 0 nicotine (polacrilex) 2 mg Lozenge 2 mg BUCCAL Q2H PRN (Reason: Nicotine Cravings) RF: 0 haloperidol 1 mg Tablet 3 mg PO TID 30 Days Qty: 270 RF: 0 loratadine 10 mg tablet 10 mg PO DAILY RF: 0
[2021-05-02 13:31] VITALS: BP 149/84; PULSE 84; RESP 16; TEMP 37.5; O2SAT 98; BMI 33.3
--- NOTE | 2021-05-02 13:33 | PC.NURSE ---
changed over w/ security- calm, cooperative. sitter at bedside
[2021-05-02] MEDS: LORazepam 1 MG TABLET 2 MG PO (13:44)
[2021-05-02 13:54] LABS: MANUAL DIFF FLAG NO
[2021-05-02 13:56] LABS: Basophils Percent Auto 0.3 % (0-2); Eosinophils Absolute Auto 0.1 X10*3/uL (0.0-0.4); Eosinophils Percent Auto 1.5 % (0-4); Hematocrit 38.6 % (37-47); Hemoglobin 13.1 g/dl (12.0-16.0); Imm Gran Abs Auto 0.02 X10*3/uL (0.00-0.03); Imm Gran Pct Auto 0.3 % (0.0-0.4); Lymphocytes Absolute Auto 1.4 X10*3/uL (1.2-4.9); Lymphocytes Percent Auto 21.2 % (20-40); Mean Corpuscular HGB Conc 33.9 g/dl (31.0-35.0); Mean Corpuscular Hemoglobin 30.6 pg (27.0-33.0); Mean Corpuscular Volume 90.2 fL (80-98); Mean Platelet Volume 9.8 fL (9.4-12.3); Monocytes Absolute Auto 0.6 X10*3/uL (0.1-1.2); Monocytes Percent Auto 8.6 % (2-11); Neutrophils Absolute Auto 4.5 X10*3/uL (2.0-8.3); Neutrophils Percent Auto 68.1 % (45-73); Platelet Count 266 X10*3/uL (160-400); Red Blood Count 4.28 X10*6/uL (4.20-5.50); Red Cell Distribution Width 12.6 % (11.0-16.0); White Blood Count 6.6 X10*3/uL (4.8-10.8)
[2021-05-02 14:11] LABS: COVID-19 Test Negative (Negative); IDNOW Serial# 9DD0AD1C
[2021-05-02 14:19] LABS: Amphetamine Screen Urine Not Detected (Not Detect); Anion Gap 12 (12-20); Barbiturates, Urine Not Detected (Not Detect); Benzodiazepines Screen Urine Not Detected (Not Detect); Blood Urea Nitrogen 8 mg/dL (9-16); Calcium 9.4 mg/dL (8.4-10.2); Cannabinoid Screen Urine Not Detected (Not Detect); Carbon Dioxide 24 mmol/L (22-29); Chloride 106 mmol/L (96-108); Cocaine Screen Urine Not Detected (Not Detect); Creatinine Clr Calc Pharmacy 107.6; Estimated Glomerular Filt Rate > 60; Glucose Random 109 mg/dL (60-115); Opiate Screen Urine Not Detected (Not Detect); Phencyclidine Screen Urine Not Detected (Not Detect); Potassium 3.9 mmol/L (3.3-5.1); Sodium 138 mmol/L (135-145)
[2021-05-02] MEDS: Ibuprofen 600 MG TABLET PO (14:25)
--- NOTE | 2021-05-02 14:48 | PC.NURSE ---
Patietly in recliner chair in no acute distress. Pt is calm and cooperative with staff
--- NOTE | 2021-05-02 14:53 | PHA.MEDREC ---
Pharmacy Consult ? Medication Reconciliation Pharmacy has completed the medication reconciliation. List fax over from patient's intermediate. No remarkable issues for provider's attention. Mady Anthony, PharmD
--- NOTE | 2021-05-02 15:24 | MHC.CARE ---
CARE Team spoke with BAN- Pt was assessed in community and [facility] bedsearch
--- NOTE | 2021-05-02 15:40 | PC.NURSE ---
Patient sitting in recliner drinking juice. Pt is calm and cooperative without noted distress
[2021-05-02 18:54] VITALS: BP 106/65; PULSE 119; TEMP 36.1; O2SAT 98
[2021-05-02 20:33] VITALS: BP 136/87; PULSE 100
[2021-05-02] MEDS: Doxazosin Mesylate 1 MG TABLET 3 MG PO (20:33)
[2021-05-02] MEDS: Montelukast Sodium 10 MG TABLET PO (20:33)
[2021-05-02] MEDS: HaloperidoL 1 MG TABLET 3 MG PO (20:33)
[2021-05-02] MEDS: chlorproMAZINE HCl 25 MG TABLET 50 MG PO (20:33)
[2021-05-02] MEDS: Benztropine Mesylate 1 MG TABLET PO (20:33)
[2021-05-02] MEDS: traZODone HCL 50 MG TABLET 150 MG PO (20:34)
[2021-05-02] MEDS: Atorvastatin Calcium 10 MG TABLET PO (20:41)
[2021-05-02 20:51] VITALS: BP 136/87; PULSE 100
[2021-05-02] MEDS: VerapamiL HCL SR 240 MG TABLET.ER PO (20:51)
[2021-05-02] MEDS: Fluticasone Propionate 100 MCG BLST.W.DEV 2 PUFF INHALE (20:52)
[2021-05-02 23:45] VITALS: BP 112/77; PULSE 92; RESP 18; TEMP 36.6; O2SAT 97
--- NOTE | 2021-05-03 | ECG_ITS ---
Test Reason : MED CLEARANCE Blood Pressure : / mmHG Vent. Rate : 075 BPM Atrial Rate : 075 BPM P-R Int : 172 ms QRS Dur : 086 ms QT Int : 378 ms P-R-T Axes : 038 050 046 degrees QTc Int : 422 ms Normal sinus rhythm Normal ECG When compared with ECG of 26-JAN-2021 17:58, Vent. rate has decreased BY 45 BPM Referred By: Mojgan Hernandez Electronically Signed By:DONALD HOOKER MD
[2021-05-03] MEDS: Omeprazole 20 MG CAPSULE.DR PO ×2 (05:43→17:53)
--- NOTE | 2021-05-03 06:33 | PC.NURSE ---
Patient slept well, no distress observed/reported, VSS, compliant with her medication, disposition section 12 inpatient bed search, patient is accepted to [facility], appetite good, hydrating well, behavior appropriate, will continue to monitor.
[2021-05-03 08:15] VITALS: BP 96/75; PULSE 95; RESP 17; TEMP 36.3; O2SAT 96
[2021-05-03] MEDS: Naltrexone HCl 50 MG TABLET PO (08:19)
[2021-05-03] MEDS: Loratadine 10 MG TABLET PO (08:19)
[2021-05-03] MEDS: Benztropine Mesylate 1 MG TABLET PO ×2 (08:19→20:38)
[2021-05-03] MEDS: Ferrous Sulfate 324 MG TABLET.DR PO (08:19)
[2021-05-03] MEDS: HaloperidoL 1 MG TABLET 3 MG PO ×2 (08:19→20:37)
[2021-05-03 08:20] VITALS: BP 96/75; PULSE 95
[2021-05-03] MEDS: metFORMIN HCl 500 MG TABLET PO ×2 (08:24→17:53)
[2021-05-03] MEDS: Clotrimazole 1 % Cream 15 GM TUBE 1 APPL TOPICAL ×2 (09:15→20:36)
[2021-05-03] MEDS: Fluticasone Propionate 100 MCG BLST.W.DEV 2 PUFF INHALE ×2 (09:16→20:36)
[2021-05-03 15:50] VITALS: BP 130/77; PULSE 79; RESP 20; TEMP 36.7; O2SAT 97
[2021-05-03 16:30] VITALS: BP 126/78; PULSE 92; RESP 18; TEMP 36.6; O2SAT 98
--- NOTE | 2021-05-03 17:30 | PC.ADMIT ---
PT admitted to unit at 1609 on a conditional voluntary for major depressive disorder and borderline personality disorder from [facility] emergency room. 15 minute checks initiated. Pt reports command auditory hallucinations to harm herself. Pt states that she presented to the emergency room after dissociating and cutting myself superficial cuts to left arm noted. PT continues to reports CAH to harm herself, agrees to contact staff if feeling unsafe. UTOX was negative, pt is covid negative. PT reports she is compliants with medications and that she finds thorazine helpful when she is hearing voices. Pt is calm and cooperative, and help seeking.
[2021-05-03] MEDS: chlorproMAZINE HCl 25 MG TABLET 50 MG PO (17:53)
[2021-05-03] MEDS: traZODone HCL 50 MG TABLET 150 MG PO (20:36)
[2021-05-03 20:37] VITALS: BP 113/71; PULSE 88
[2021-05-03] MEDS: Montelukast Sodium 10 MG TABLET PO (20:37)
[2021-05-03] MEDS: VerapamiL HCL SR 240 MG TABLET.ER PO (20:37)
[2021-05-03 20:38] VITALS: BP 113/71; PULSE 88
[2021-05-03] MEDS: Atorvastatin Calcium 10 MG TABLET PO (20:38)
[2021-05-03] MEDS: Doxazosin Mesylate 1 MG TABLET 3 MG PO (20:38)
[2021-05-04] MEDS: Omeprazole 20 MG CAPSULE.DR PO ×2 (06:30→16:46)
[2021-05-04 08:10] VITALS: BP 124/70; PULSE 100; RESP 16; TEMP 36.7; O2SAT 96
[2021-05-04 08:29] VITALS: BP 124/70; PULSE 100
[2021-05-04] MEDS: Naltrexone HCl 50 MG TABLET PO (08:29)
[2021-05-04] MEDS: metFORMIN HCl 500 MG TABLET PO ×2 (08:29→16:46)
[2021-05-04] MEDS: lisinopriL 5 MG TABLET PO (08:29)
[2021-05-04] MEDS: HaloperidoL 1 MG TABLET 3 MG PO ×3 (08:29→20:43)
[2021-05-04] MEDS: Fluticasone Propionate 100 MCG BLST.W.DEV 2 PUFF INHALE ×2 (08:29→20:53)
[2021-05-04] MEDS: Ferrous Sulfate 324 MG TABLET.DR PO (08:29)
[2021-05-04] MEDS: Loratadine 10 MG TABLET PO (08:29)
[2021-05-04] MEDS: Benztropine Mesylate 1 MG TABLET PO ×2 (08:29→20:44)
[2021-05-04] MEDS: Clotrimazole 1 % Cream 15 GM TUBE 1 APPL TOPICAL ×2 (08:30→20:42)
[2021-05-04] MEDS: chlorproMAZINE HCl 25 MG TABLET 50 MG PO ×2 (10:22→15:49)
[2021-05-04] MEDS: polyethylene glycoL 3350 17 GM POWD.PACK PO (10:54)
[2021-05-04 11:09] LABS: Glucose, Whole Blood 155 mg/dL (60-115)
[2021-05-04] MEDS: Nicotine 21 MG PATCH.TD24 TRANSDERMA (11:17)
--- NOTE | 2021-05-04 12:49 | MHC.CLN ---
NUTRITION/DIET PATIENT TAKES METFORMIN AND HAS BLOOD GLUCOSE CHECKS. CHANGED DIET TO DIABETIC 2000 KCAL TO PROVIDE 30.5 KCAL/KG CMW.
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
[2021-05-04] MEDS: Montelukast Sodium 10 MG TABLET PO (20:42)
[2021-05-04 20:43] VITALS: BP 141/100; PULSE 106
[2021-05-04] MEDS: Doxazosin Mesylate 1 MG TABLET 3 MG PO (20:43)
[2021-05-04] MEDS: traZODone HCL 50 MG TABLET 150 MG PO (20:43)
[2021-05-04] MEDS: Atorvastatin Calcium 10 MG TABLET PO (20:44)
[2021-05-04 20:45] VITALS: BP 141/100; PULSE 106
[2021-05-04] MEDS: VerapamiL HCL SR 240 MG TABLET.ER PO (20:45)
[2021-05-04 20:49] VITALS: BP 141/100; PULSE 106; TEMP 36.3; O2SAT 98
[2021-05-04] MEDS: Milk of Magnesia 30 ML ORAL.SUSP PO (20:56)
[2021-05-05] MEDS: Albuterol Sulfate 90 MCG 8 GM INHALER 2 PUFF INHALE (02:37)
[2021-05-05 06:00] VITALS: BP 134/89; PULSE 85; RESP 18; TEMP 36.6; O2SAT 97
[2021-05-05] MEDS: Omeprazole 20 MG CAPSULE.DR PO (06:31)
[2021-05-05] MEDS: Naltrexone HCl 50 MG TABLET PO (08:12)
[2021-05-05] MEDS: HaloperidoL 1 MG TABLET 3 MG PO ×2 (08:12→14:58)
[2021-05-05 08:13] VITALS: BP 134/89; PULSE 85
[2021-05-05] MEDS: Loratadine 10 MG TABLET PO (08:13)
[2021-05-05] MEDS: Ferrous Sulfate 324 MG TABLET.DR PO (08:13)
[2021-05-05] MEDS: lisinopriL 5 MG TABLET PO (08:13)
[2021-05-05] MEDS: metFORMIN HCl 500 MG TABLET PO (08:13)
[2021-05-05] MEDS: Fluticasone Propionate 100 MCG BLST.W.DEV 2 PUFF INHALE (08:18)
[2021-05-05 08:19] LABS: Glucose, Whole Blood 129 mg/dL (60-115)
[2021-05-05] MEDS: Clotrimazole 1 % Cream 15 GM TUBE 1 APPL TOPICAL (08:19)
[2021-05-05] MEDS: Nicotine 21 MG PATCH.TD24 TRANSDERMA (08:24)
[2021-05-05] MEDS: Benztropine Mesylate 1 MG TABLET PO (10:38)
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
== END 2021-05-05 16:05 | disposition home or self-care (01) | DRG 883 ==
LOC: HO.ED 15:49 → HO.PADLT16 05-03 10:52
PROVIDERS: Admitting Provider Psychiatry & Neurology Psychiatry; Emergency Provider Emergency Medicine; PCP Internal Medicine; Visit Provider Psychiatry & Neurology Psychiatry
DX: F60.3 Borderline personality disorder (principal); R45.851 Suicidal ideations; F43.10 Post-traumatic stress disorder, unspecified; E78.5 Hyperlipidemia, unspecified; F17.210 Nicotine dependence, cigarettes, uncomplicated; Z71.6 Tobacco abuse counseling; K21.9 Gastro-esophageal reflux disease without esophagitis; Z20.822 Contact with and (suspected) exposure to COVID-19; Z88.0 Allergy status to penicillin; Z88.2 Allergy status to sulfonamides; Z79.84 Long term (current) use of oral hypoglycemic drugs; Z79.899 Other long term (current) drug therapy
CPT/HCPCS: 36415; 80048; 80307; 82947; 85025; 87635; 93005; 99285

== ENCOUNTER 2021-05-07 11:27 | Emergency (ER) | payer MEDICARE, MEDICAID, SELFPAY ==
[2021-05-07 11:33] VITALS: BP 126/72; BP 154/88; PULSE 68; PULSE 86; RESP 16; TEMP 36.4; O2SAT 97; BMI 35.2
--- NOTE | 2021-05-07 11:39 | ED_ITS ---
HPI - Psych General Chief Complaint: Psychiatric Symptoms <Yoseph Velasco MD - Last Filed: 05/07/21 16:50> Stated Complaint: crisis <Yoseph Velasco MD - Last Filed: 05/07/21 16:50> Time Seen by Provider: 05/07/21 11:39 <Yoseph Velasco MD - Last Filed: 05/07/21 16:50> Source: patient <Yoseph Velasco MD - Last Filed: 05/07/21 16:50> Mode of arrival: EMS <Yoseph Velasco MD - Last Filed: 05/07/21 16:50> Limitations: no limitations <Yoseph Velasco MD - Last Filed: 05/07/21 16:50> History of Present Illness HPI Narrative: Patient is from a longterm, just discharged from on . Told [facility] she is suicidal with a plan. Patient states she has been seeing her father who has and is hearing voices telling her to kill herself. <Yoseph Velasco MD - Last Filed: 05/07/21 16:50> MD complaint: suicidal ideation, feels depressed and anxiety <Yoseph Velasco MD - Last Filed: 05/07/21 16:50> Onset (ago): week(s) <Yoseph Velasco MD - Last Filed: 05/07/21 16:50> Duration: constant <Yoseph Velasco MD - Last Filed: 05/07/21 16:50> History of same: Yes <Yoseph Velasco MD - Last Filed: 05/07/21 16:50> Relieving factors: none <Yoseph Velasco MD - Last Filed: 05/07/21 16:50> Associated psychiatric symptoms: depression and suicidal ideation <Yoseph Velasco MD - Last Filed: 05/07/21 16:50> Treatments prior to arrival: none <Yoseph Velasco MD - Last Filed: 05/07/21 16:50> If self harm: has plan <Yoseph Velasco MD - Last Filed: 05/07/21 16:50> Related Data Home Medications: Home Medications Medication Instructions Recorded Confirmed Flovent HFA 2 puff INHALATION BID 01/27/21 05/07/21 atorvastatin 10 mg PO BEDTIME 01/27/21 05/07/21 doxazosin 3 mg PO BEDTIME 01/27/21 05/07/21 lisinopril 5 mg PO DAILY 01/27/21 05/07/21 metformin 500 mg PO BID@0900,1700 01/27/21 05/07/21 montelukast 10 mg PO BEDTIME 01/27/21 05/07/21 trazodone 150 mg PO BEDTIME 01/27/21 05/07/21 verapamil 240 mg PO BEDTIME 01/27/21 05/07/21 ferrous sulfate 325 mg PO DAILY 02/12/21 05/07/21 pantoprazole [Protonix] 40 mg PO BID 02/12/21 05/07/21 polyethylene glycol 3350 [Miralax] 17 g PO DAILY PRN 02/12/21 05/07/21 chlorpromazine 50 mg PO DAILY PRN 05/02/21 05/07/21 clotrimazole 1 applic TOPICAL BID 05/02/21 05/07/21 nicotine (polacrilex) 2 mg BUCCAL Q2H PRN 05/02/21 05/07/21 Previous Rx's Medication Instructions Recorded albuterol sulfate [Ventolin HFA] 2 puff INHALATION RQ4H PRN #6.7 g 03/23/21 benztropine 1 mg PO BID #30 tab 03/23/21 haloperidol decanoate 100 mg IM Q28D #1 ml 03/23/21 naltrexone 50 mg PO DAILY #30 tab 03/23/21 haloperidol 3 mg PO TID 30 Days #270 tab 04/04/21 nicotine 21 mg TRANSDERMAL DAILY 28 Days 05/05/21 #28 ea <Yoseph Velasco MD - Last Filed: 05/07/21 16:50> Allergies/Adverse Reactions: Allergies Allergy/AdvReac Type Severity Reaction Status Date / Time Fish Containing Products Allergy Severe ANAPHYLAXIS Verified 04/20/21 17:39 codeine [Codeine] Allergy Unknown RASH Verified 04/20/21 17:39 Penicillins Allergy Unknown RASH Verified 04/20/21 17:39 prednisone [Prednisone] Allergy Unknown RASH Verified 04/20/21 17:39 Sulfa (Sulfonamide Allergy Unknown RASH Verified 04/20/21 17:39 Antibiotics) [Sulfa (Sulfonamides)] azithromycin [AZITHROMYCIN] AdvReac Severe RASH Verified 04/20/21 17:39 nicotine AdvReac Unknown HEART Verified 04/20/21 17:39 PALPITATION TO NICOTINE GUM Seafood Allergy Severe ANAPHYLAXIS Uncoded 07/01/20 16:44 From Geodon Allergy Unknown DYSURIA, Uncoded 07/01/20 16:44 RASH <Yoseph Velasco MD - Last Filed: 05/07/21 16:50> Review of Systems Constitutional: Constitutional: Reports no additional constitutional complaints <Yoseph Velasco MD - Last Filed: 05/07/21 16:50> Eyes: Eyes: Reports no additional eye complaints <Yoseph Velasco MD - Last Filed: 05/07/21 16:50> ENT: Denies dizziness <Yoseph Velasco MD - Last Filed: 05/07/21 16:50> Cardiovascular: Cardiovascular: Reports no additional cardiovascular complaints <Yoseph Velasco MD - Last Filed: 05/07/21 16:50> Respiratory: Respiratory: Reports as per HPI <Yoseph Velasco MD - Last Filed: 05/07/21 16:50> Gastrointestinal: Gastrointestinal: Reports no additional gastrointestinal complaints <Yoseph Velasco MD - Last Filed: 05/07/21 16:50> Genitourinary: Genitourinary: Reports no additional female genitourinary complaints <Yoseph Velasco MD - Last Filed: 05/07/21 16:50> Musculoskeletal: Musculoskeletal: Reports no additional musculoskeletal complaints <Yoseph Velasco MD - Last Filed: 05/07/21 16:50> Integumentary/Breasts: Skin/Breast: Denies rash <Yoseph Velasco MD - Last Filed: 05/07/21 16:50> Neurologic: Reports system reviewed and no additional complaints, except as documented, Denies dizziness and Denies Sensory deficit (Neuro) <Yoseph Velasco MD - Last Filed: 05/07/21 16:50> Psychiatric: Psychiatric: Denies anxiety <Yoseph Velasco MD - Last Filed: 05/07/21 16:50> PMFSH Past Medical History Medical History: Medical History Bronchitis GERD (gastroesophageal reflux disease) Hyperlipidemia Mood disorder Overdose PTSD (post-traumatic stress disorder) <Yoseph Velasco MD - Last Filed: 05/07/21 16:50> Social History Social History: Social History 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 Other:: [facility] Housing: Other Housing Other:: longterm Do you presently have visiting nurse or other home services: Yes Alcohol intake: never Patient Tobacco Use Status: Current everyday Tobacco user Tobacco use type: Cigarette Cigarette Packs Per Day: 1 Cigarettes Per Day: 20.0 Years Smoked: 20 e-Cigarette/Vaping Use: Currently Using Second Hand Smoke Exposure: Yes Use of substances other than those prescribed or required for medical reasons: No Substance Use Type: Caffiene Advance Directives: No Advance Directives Information Provided: No Patient : No service: No Sexual orientation: Don't Know <Yoseph Velasco MD - Last Filed: 05/07/21 16:50> Physical Exam Vital Signs: Vital Signs: Last Vital Signs Temp 97.6 F 05/08/21 06:12 Pulse 80 05/08/21 08:29 Resp 16 05/08/21 06:12 BP 130/82 05/08/21 08:29 Pulse Ox 95 05/08/21 06:12 Body Mass Index 35.2 <Yoseph Velasco MD - Last Filed: 05/07/21 16:50> Vital Signs: Last Vital Signs Temp 97.6 F 05/08/21 06:12 Pulse 80 05/08/21 08:29 Resp 16 05/08/21 06:12 BP 130/82 05/08/21 08:29 Pulse Ox 95 05/08/21 06:12 Body Mass Index 35.2 <Rosario Murry NP - Last Filed: 05/07/21 19:14> Vital Signs: Last Vital Signs Temp 97.6 F 05/08/21 06:12 Pulse 80 05/08/21 08:29 Resp 16 05/08/21 06:12 BP 130/82 05/08/21 08:29 Pulse Ox 95 05/08/21 06:12 Body Mass Index 35.2 <TIMI Dong - Last Filed: 05/08/21 08:48> Const: Other: anxious pacing <Yoseph Velasco MD - Last Filed: 05/07/21 16:50> Nutritional Appearance: obese <Yoseph Velasco MD - Last Filed: 05/07/21 16: 50> Orientation/consciousness: oriented to person and patient oriented x3 <Yoseph Velasco MD - Last Filed: 05/07/21 16:50> Limitations: no limitations <Yoseph Velasco MD - Last Filed: 05/07/21 16:50> HENMT: Head: Yes normal to inspection <Yoseph Velasco MD - Last Filed: 05/07/21 16:50> Ears: external ears normal <Yoseph Velasco MD - Last Filed: 05/07/21 16:50> General nose exam: Normal external nose present <Yoseph Velasco MD - Last Filed: 05/07/21 16:50> Mouth: Normal oral and palatal mucosa present and oropharynx normal <Yoseph Velasco MD - Last Filed: 05/07/21 16:50> Throat: Yes posterior oropharynx normal <Yoseph Velasco MD - Last Filed: 16:50> Eyes: General: appearance normal, both eyes and all related structures <Yoseph Velasco MD - Last Filed: 05/07/21 16:50> Neck: Other: supple <Yoseph Velasco MD - Last Filed: 05/07/21 16:50> Neck: Yes normal visual inspection <Yoseph Velasco MD - Last Filed: 05/07/21 16:50> Chest: Chest palpation & inspection: normal inspection of the chest <Terrence Velasco MD - Last Filed: 05/07/21 16:50> Resp: Auscultation: clear to auscultation bilaterally <Yoseph Velasco MD - Last Filed: 05/07/21 16:50> Cardio: Jugular venous distension: no JVD <Yoseph Velasco MD - Last Filed: 05/07/21 16:50> Rate: regular rate <Yoseph Velasco MD - Last Filed: 05/07/21 16:50> Rhythm: regular rhythm <Yoseph Velasco MD - Last Filed: 05/07/21 16:50> Heart sounds: S1 normal heart sound present and S2 normal heart sound present <Yoseph Velasco MD - Last Filed: 05/07/21 16:50> GI: Inspection: Yes normal to inspection <Yoseph Velasco MD - Last Filed: 05/07/21 16:50> Palpation (GI): Soft to palpation, nontender and No hepatosplenomegaly present <Yoseph Velasco MD - Last Filed: 05/07/21 16:50> Auscultation: normal bowel sounds <Yoseph Velasco MD - Last Filed: 05/07/21 16:50> : General: Yes no CVA tenderness <Yoseph Velasco MD - Last Filed: 05/07/21 16:50> Back/Spine/Pelvis: Back: no CVA tenderness <Yoseph Velasco MD - Last Filed: 05/07/21 16:50> Skin: General skin exam: no rashes or lesions noted <Yoseph Velasco MD - Last Filed: 05/07/21 16:50> Neuro: General: oriented to person and patient oriented x3 <Yoseph Velasco MD - Last Filed: 05/07/21 16:50> Cranial nerves: Yes CN's II-XII intact bilaterally <Yoseph Velasco MD - Last Filed: 05/07/21 16:50> Motor exam (neuro): 5/5 motor strength present throughout <Yoseph Velasco MD - Last Filed: 05/07/21 16:50> Sensory Exam: No Sensory deficit (Neuro) <Yoseph Velasco MD - Last Filed: 05/07/21 16:50> Extrem: General: Yes normal to inspection <Yoseph Velasco MD - Last Filed: 05/07/21 16:50> Psych: Other: anxious with blunted affect. slightly tearful <Yoseph Velasco MD - Last Filed: 05/07/21 16:50> Course Course Course Narrative: 6:20 p.m. [facility] consult complete, plan is for inpatient bed search, section 12. physician observation continues. <Rosario Murry NP - Last Filed: 05/07/21 19:14> Physician observation continued. Patient vital signs are stable. Patient is not in distress. Patient is presently a bed search, but is presently being re-evaluated by [facility] for possible discharge <TIMI Dong - Last Filed: 05/08/21 08:48> Reevaluation(s) Reevaluation #1: Crisis to initiate Bed search <Yoseph Velasco MD - Last Filed: 05/07/21 16:50> Time: 15:52 <Yoseph Velasco MD - Last Filed: 05/07/21 16:50> Reevaluation #2: Patient placed in physician observation at 4:45pm The indication for observation is that the patient needs more time to see if his depression improves or he will need to be admitted. At this time the patient is well developed well nourished, lungs clear, CV RRR, abd nontender, neuro is intact. Plan at this moment is admit but the evaluation continues <Yoseph Velasco MD - Last Filed: 05/07/21 16:50> Time: 16:50 <Yoseph Velasco MD - Last Filed: 05/07/21 16:50> MDM - Psych Lab Data Result diagrams: : 05/07/21 13:05 05/07/21 13:05 <Yoseph Velasco MD - Last Filed: 05/07/21 16:50> Labs: Lab Results 05/07/21 05/07/21 05/07/21 Range/Units 11:59 11:59 12:55 WBC (4.8-10.8) X10*3/uL RBC (4.20-5.50) X10*6/uL Hgb (12.0-16.0) g/dl Hct (37-47) % MCV (80-98) fL MCH (27.0-33.0) pg MCHC (31.0-35.0) g/dl RDW (11.0-16.0) % Plt Count (160-400) X10*3/uL MPV (9.4-12.3) fL Immature Gran % (Auto) (0.0-0.4) % Neut % (Auto) (45-73) % Lymph % (Auto) (20-40) % [place] % (Auto) (2-11) % Eos % (Auto) (0-4) % Baso % (Auto) (0-2) % Lymph # (Auto) (1.2-4.9) X10*3/uL [place] # (Auto) (0.1-1.2) X10*3/uL Eos # (Auto) (0.0-0.4) X10*3/uL Baso # (Auto) (0.0-0.2) X10*3/uL Abs Immat Gran (auto) (0.00-0.03) X10*3/uL Absolute Neuts (auto) (2.0-8.3) X10*3/uL Absolute Nucleated RBC (0.0-0.012) X10*3/uL Nucleated RBC % (auto) (0.0-0.2) /100WBC Sodium (135-145) mmol/L Potassium (3.3-5.1) mmol/L Chloride (96-108) mmol/L Carbon Dioxide (22-29) mmol/L Anion Gap (12-20) BUN (9-16) mg/dL Creatinine (0.5-1.4) mg/dL Estim Creat Clear Calc Estimated GFR Random Glucose (60-115) mg/dL Calcium (8.4-10.2) mg/dL Total Bilirubin (0.0-1.0) mg/dL AST (5-31) U/L ALT (0-31) U/L Alkaline Phosphatase (39-117) U/L Total Protein (6.5-8.0) g/dL Albumin (3.5-5.0) g/dL Urine Test NEGATIVE (NEGATIVE) Salicylates (15-30) mg/dL Urine Opiates Screen Not Detected (Not Detect) Acetaminophen (<30) mcg/mL Ur Barbiturates Screen Not Detected (Not Detect) Ur Phencyclidine Scrn Not Detected (Not Detect) Ur Amphetamines Screen Not Detected (Not Detect) U Benzodiazepines Scrn Not Detected (Not Detect) Urine Cocaine Screen Not Detected (Not Detect) U Marijuana (THC) Screen Not Detected (Not Detect) Ethyl Alcohol mg/dL COVID-19 (NICK) Negative (Negative) COVID-19 Clin Com See Note 05/07/21 05/07/21 05/07/21 Range/Units 13:05 13:05 13:05 WBC 6.8 (4.8-10.8) X10*3/uL RBC 4.22 (4.20-5.50) X10*6/uL Hgb 12.9 (12.0-16.0) g/dl Hct 39.1 (37-47) % MCV 92.7 (80-98) fL MCH 30.6 (27.0-33.0) pg MCHC 33.0 (31.0-35.0) g/dl RDW 12.6 (11.0-16.0) % Plt Count 254 (160-400) X10*3/uL MPV 9.6 (9.4-12.3) fL Immature Gran % (Auto) 0.1 (0.0-0.4) % Neut % (Auto) 71.7 (45-73) % Lymph % (Auto) 19.9 L (20-40) % [place] % (Auto) 6.1 (2-11) % Eos % (Auto) 1.8 (0-4) % Baso % (Auto) 0.4 (0-2) % Lymph # (Auto) 1.4 (1.2-4.9) X10*3/uL [place] # (Auto) 0.4 (0.1-1.2) X10*3/uL Eos # (Auto) 0.1 (0.0-0.4) X10*3/uL Baso # (Auto) 0.0 (0.0-0.2) X10*3/uL Abs Immat Gran (auto) 0.01 (0.00-0.03) X10*3/uL Absolute Neuts (auto) 4.9 (2.0-8.3) X10*3/uL Absolute Nucleated RBC 0.000 (0.0-0.012) X10*3/uL Nucleated RBC % (auto) 0.0 (0.0-0.2) /100WBC Sodium 135 (135-145) mmol/L Potassium 4.0 (3.3-5.1) mmol/L Chloride 103 (96-108) mmol/L Carbon Dioxide 22 (22-29) mmol/L Anion Gap 14 (12-20) BUN 6 L (9-16) mg/dL Creatinine 0.81 (0.5-1.4) mg/dL Estim Creat Clear Calc 102.7 Estimated GFR > 60 Random Glucose 109 (60-115) mg/dL Calcium 9.1 (8.4-10.2) mg/dL Total Bilirubin 0.3 (0.0-1.0) mg/dL AST 15 (5-31) U/L ALT 13 (0-31) U/L Alkaline Phosphatase 103 (39-117) U/L Total Protein 7.0 (6.5-8.0) g/dL Albumin 4.3 (3.5-5.0) g/dL Urine Test (NEGATIVE) Salicylates < 5.0 L (15-30) mg/dL Urine Opiates Screen (Not Detect) Acetaminophen < 1 (<30) mcg/mL Ur Barbiturates Screen (Not Detect) Ur Phencyclidine Scrn (Not Detect) Ur Amphetamines Screen (Not Detect) U Benzodiazepines Scrn (Not Detect) Urine Cocaine Screen (Not Detect) U Marijuana (THC) Screen (Not Detect) Ethyl Alcohol < 10 mg/dL COVID-19 (NICK) (Negative) COVID-19 Clin Com <Yoseph Velasco MD - Last Filed: 05/07/21 16:50> Lab Results 05/07/21 05/07/21 05/07/21 Range/Units 11:59 11:59 12:55 WBC (4.8-10.8) X10*3/uL RBC (4.20-5.50) X10*6/uL Hgb (12.0-16.0) g/dl Hct (37-47) % MCV (80-98) fL MCH (27.0-33.0) pg MCHC (31.0-35.0) g/dl RDW (11.0-16.0) % Plt Count (160-400) X10*3/uL MPV (9.4-12.3) fL Immature Gran % (Auto) (0.0-0.4) % Neut % (Auto) (45-73) % Lymph % (Auto) (20-40) % [place] % (Auto) (2-11) % Eos % (Auto) (0-4) % Baso % (Auto) (0-2) % Lymph # (Auto) (1.2-4.9) X10*3/uL [place] # (Auto) (0.1-1.2) X10*3/uL Eos # (Auto) (0.0-0.4) X10*3/uL Baso # (Auto) (0.0-0.2) X10*3/uL Abs Immat Gran (auto) (0.00-0.03) X10*3/uL Absolute Neuts (auto) (2.0-8.3) X10*3/uL Absolute Nucleated RBC (0.0-0.012) X10*3/uL Nucleated RBC % (auto) (0.0-0.2) /100WBC Sodium (135-145) mmol/L Potassium (3.3-5.1) mmol/L Chloride (96-108) mmol/L Carbon Dioxide (22-29) mmol/L Anion Gap (12-20) BUN (9-16) mg/dL Creatinine (0.5-1.4) mg/dL Estim Creat Clear Calc Estimated GFR Random Glucose (60-115) mg/dL Calcium (8.4-10.2) mg/dL Total Bilirubin (0.0-1.0) mg/dL AST (5-31) U/L ALT (0-31) U/L Alkaline Phosphatase (39-117) U/L Total Protein (6.5-8.0) g/dL Albumin (3.5-5.0) g/dL Urine Test NEGATIVE (NEGATIVE) Salicylates (15-30) mg/dL Urine Opiates Screen Not Detected (Not Detect) Acetaminophen (<30) mcg/mL Ur Barbiturates Screen Not Detected (Not Detect) Ur Phencyclidine Scrn Not Detected (Not Detect) Ur Amphetamines Screen Not Detected (Not Detect) U Benzodiazepines Scrn Not Detected (Not Detect) Urine Cocaine Screen Not Detected (Not Detect) U Marijuana (THC) Screen Not Detected (Not Detect) Ethyl Alcohol mg/dL COVID-19 (NICK) Negative (Negative) COVID-19 Clin Com See Note 05/07/21 05/07/21 05/07/21 Range/Units 13:05 13:05 13:05 WBC 6.8 (4.8-10.8) X10*3/uL RBC 4.22 (4.20-5.50) X10*6/uL Hgb 12.9 (12.0-16.0) g/dl Hct 39.1 (37-47) % MCV 92.7 (80-98) fL MCH 30.6 (27.0-33.0) pg MCHC 33.0 (31.0-35.0) g/dl RDW 12.6 (11.0-16.0) % Plt Count 254 (160-400) X10*3/uL MPV 9.6 (9.4-12.3) fL Immature Gran % (Auto) 0.1 (0.0-0.4) % Neut % (Auto) 71.7 (45-73) % Lymph % (Auto) 19.9 L (20-40) % [place] % (Auto) 6.1 (2-11) % Eos % (Auto) 1.8 (0-4) % Baso % (Auto) 0.4 (0-2) % Lymph # (Auto) 1.4 (1.2-4.9) X10*3/uL [place] # (Auto) 0.4 (0.1-1.2) X10*3/uL Eos # (Auto) 0.1 (0.0-0.4) X10*3/uL Baso # (Auto) 0.0 (0.0-0.2) X10*3/uL Abs Immat Gran (auto) 0.01 (0.00-0.03) X10*3/uL Absolute Neuts (auto) 4.9 (2.0-8.3) X10*3/uL Absolute Nucleated RBC 0.000 (0.0-0.012) X10*3/uL Nucleated RBC % (auto) 0.0 (0.0-0.2) /100WBC Sodium 135 (135-145) mmol/L Potassium 4.0 (3.3-5.1) mmol/L Chloride 103 (96-108) mmol/L Carbon Dioxide 22 (22-29) mmol/L Anion Gap 14 (12-20) BUN 6 L (9-16) mg/dL Creatinine 0.81 (0.5-1.4) mg/dL Estim Creat Clear Calc 102.7 Estimated GFR > 60 Random Glucose 109 (60-115) mg/dL Calcium 9.1 (8.4-10.2) mg/dL Total Bilirubin 0.3 (0.0-1.0) mg/dL AST 15 (5-31) U/L ALT 13 (0-31) U/L Alkaline Phosphatase 103 (39-117) U/L Total Protein 7.0 (6.5-8.0) g/dL Albumin 4.3 (3.5-5.0) g/dL Urine Test (NEGATIVE) Salicylates < 5.0 L (15-30) mg/dL Urine Opiates Screen (Not Detect) Acetaminophen < 1 (<30) mcg/mL Ur Barbiturates Screen (Not Detect) Ur Phencyclidine Scrn (Not Detect) Ur Amphetamines Screen (Not Detect) U Benzodiazepines Scrn (Not Detect) Urine Cocaine Screen (Not Detect) U Marijuana (THC) Screen (Not Detect) Ethyl Alcohol < 10 mg/dL COVID-19 (NICK) (Negative) COVID-19 Clin Com <Rosario Murry NP - Last Filed: 05/07/21 19:14> Lab Results 05/07/21 05/07/21 05/07/21 Range/Units 11:59 11:59 12:55 WBC (4.8-10.8) X10*3/uL RBC (4.20-5.50) X10*6/uL Hgb (12.0-16.0) g/dl Hct (37-47) % MCV (80-98) fL MCH (27.0-33.0) pg MCHC (31.0-35.0) g/dl RDW (11.0-16.0) % Plt Count (160-400) X10*3/uL MPV (9.4-12.3) fL Immature Gran % (Auto) (0.0-0.4) % Neut % (Auto) (45-73) % Lymph % (Auto) (20-40) % [place] % (Auto) (2-11) % Eos % (Auto) (0-4) % Baso % (Auto) (0-2) % Lymph # (Auto) (1.2-4.9) X10*3/uL [place] # (Auto) (0.1-1.2) X10*3/uL Eos # (Auto) (0.0-0.4) X10*3/uL Baso # (Auto) (0.0-0.2) X10*3/uL Abs Immat Gran (auto) (0.00-0.03) X10*3/uL Absolute Neuts (auto) (2.0-8.3) X10*3/uL Absolute Nucleated RBC (0.0-0.012) X10*3/uL Nucleated RBC % (auto) (0.0-0.2) /100WBC Sodium (135-145) mmol/L Potassium (3.3-5.1) mmol/L Chloride (96-108) mmol/L Carbon Dioxide (22-29) mmol/L Anion Gap (12-20) BUN (9-16) mg/dL Creatinine (0.5-1.4) mg/dL Estim Creat Clear Calc Estimated GFR Random Glucose (60-115) mg/dL Calcium (8.4-10.2) mg/dL Total Bilirubin (0.0-1.0) mg/dL AST (5-31) U/L ALT (0-31) U/L Alkaline Phosphatase (39-117) U/L Total Protein (6.5-8.0) g/dL Albumin (3.5-5.0) g/dL Urine Test NEGATIVE (NEGATIVE) Salicylates (15-30) mg/dL Urine Opiates Screen Not Detected (Not Detect) Acetaminophen (<30) mcg/mL Ur Barbiturates Screen Not Detected (Not Detect) Ur Phencyclidine Scrn Not Detected (Not Detect) Ur Amphetamines Screen Not Detected (Not Detect) U Benzodiazepines Scrn Not Detected (Not Detect) Urine Cocaine Screen Not Detected (Not Detect) U Marijuana (THC) Screen Not Detected (Not Detect) Ethyl Alcohol mg/dL COVID-19 (NICK) Negative (Negative) COVID-19 Clin Com See Note 05/07/21 05/07/21 05/07/21 Range/Units 13:05 13:05 13:05 WBC 6.8 (4.8-10.8) X10*3/uL RBC 4.22 (4.20-5.50) X10*6/uL Hgb 12.9 (12.0-16.0) g/dl Hct 39.1 (37-47) % MCV 92.7 (80-98) fL MCH 30.6 (27.0-33.0) pg MCHC 33.0 (31.0-35.0) g/dl RDW 12.6 (11.0-16.0) % Plt Count 254 (160-400) X10*3/uL MPV 9.6 (9.4-12.3) fL Immature Gran % (Auto) 0.1 (0.0-0.4) % Neut % (Auto) 71.7 (45-73) % Lymph % (Auto) 19.9 L (20-40) % [place] % (Auto) 6.1 (2-11) % Eos % (Auto) 1.8 (0-4) % Baso % (Auto) 0.4 (0-2) % Lymph # (Auto) 1.4 (1.2-4.9) X10*3/uL [place] # (Auto) 0.4 (0.1-1.2) X10*3/uL Eos # (Auto) 0.1 (0.0-0.4) X10*3/uL Baso # (Auto) 0.0 (0.0-0.2) X10*3/uL Abs Immat Gran (auto) 0.01 (0.00-0.03) X10*3/uL Absolute Neuts (auto) 4.9 (2.0-8.3) X10*3/uL Absolute Nucleated RBC 0.000 (0.0-0.012) X10*3/uL Nucleated RBC % (auto) 0.0 (0.0-0.2) /100WBC Sodium 135 (135-145) mmol/L Potassium 4.0 (3.3-5.1) mmol/L Chloride 103 (96-108) mmol/L Carbon Dioxide 22 (22-29) mmol/L Anion Gap 14 (12-20) BUN 6 L (9-16) mg/dL Creatinine 0.81 (0.5-1.4) mg/dL Estim Creat Clear Calc 102.7 Estimated GFR > 60 Random Glucose 109 (60-115) mg/dL Calcium 9.1 (8.4-10.2) mg/dL Total Bilirubin 0.3 (0.0-1.0) mg/dL AST 15 (5-31) U/L ALT 13 (0-31) U/L Alkaline Phosphatase 103 (39-117) U/L Total Protein 7.0 (6.5-8.0) g/dL Albumin 4.3 (3.5-5.0) g/dL Urine Test (NEGATIVE) Salicylates < 5.0 L (15-30) mg/dL Urine Opiates Screen (Not Detect) Acetaminophen < 1 (<30) mcg/mL Ur Barbiturates Screen (Not Detect) Ur Phencyclidine Scrn (Not Detect) Ur Amphetamines Screen (Not Detect) U Benzodiazepines Scrn (Not Detect) Urine Cocaine Screen (Not Detect) U Marijuana (THC) Screen (Not Detect) Ethyl Alcohol < 10 mg/dL COVID-19 ([facility]) (Negative) COVID-19 Clin Com <TIMI Dong - Last Filed: 05/08/21 08:48> Discharge Plan Discharge Prescriptions: No Action metformin 500 mg tablet 500 mg PO BID@0900,1700 RF: 0 atorvastatin 10 mg tablet 10 mg PO BEDTIME RF: 0 doxazosin 1 mg tablet 3 mg PO BEDTIME RF: 0 trazodone 150 mg tablet 150 mg PO BEDTIME RF: 0 verapamil 240 mg tablet extended release 240 mg PO BEDTIME RF: 0 montelukast 10 mg tablet 10 mg PO BEDTIME RF: 0 lisinopril 5 mg tablet 5 mg PO DAILY RF: 0 Flovent HFA 110 mcg/actuation HFA aerosol inhaler 2 puff inhalation BID RF: 0 polyethylene glycol 3350 [Miralax] 17 gram Powder In Packet 17 g PO DAILY PRN (Reason: Constipation) RF: 0 pantoprazole [Protonix] 40 mg Tablet,Delayed Release (Dr/Ec) 40 mg PO BID RF: 0 ferrous sulfate 325 mg (65 mg iron) tablet,delayed release (DR/EC) 325 mg PO DAILY RF: 0 albuterol sulfate [Ventolin HFA] 90 mcg/actuation Hfa Aerosol Inhaler 2 puff inhalation RQ4H PRN (Reason: Shortness Of Breath) Qty: 6.7 RF: 0 naltrexone 50 mg Tablet 50 mg PO DAILY Qty: 30 RF: 0 benztropine 1 mg Tablet 1 mg PO BID Qty: 30 RF: 0 haloperidol decanoate 50 mg/mL Solution 100 mg IM Q28D Qty: 1 RF: 0 clotrimazole 1 % cream 1 applic topical BID RF: 0 chlorpromazine 50 mg Tablet 50 mg PO DAILY PRN (Reason: Psychosis) RF: 0 nicotine (polacrilex) 2 mg Lozenge 2 mg BUCCAL Q2H PRN (Reason: Nicotine Cravings) RF: 0 nicotine 21 mg/24 hr Patch 24 Hour 21 mg transdermal DAILY 28 Days Qty: 28 RF: 0 haloperidol 1 mg Tablet 3 mg PO TID 30 Days Qty: 270 RF: 0 <Yoseph Velasco MD - Last Filed: 05/07/21 16:50>
[2021-05-07 11:50] VITALS: RESP 16
[2021-05-07 12:19] LABS: UPreg QC Valid YES; Urine Pregnancy NEGATIVE (NEGATIVE)
[2021-05-07] MEDS: LORazepam 1 MG TABLET PO (12:21)
[2021-05-07 12:50] LABS: Amphetamine Screen Urine Not Detected (Not Detect); Barbiturates, Urine Not Detected (Not Detect); Benzodiazepines Screen Urine Not Detected (Not Detect); Cannabinoid Screen Urine Not Detected (Not Detect); Cocaine Screen Urine Not Detected (Not Detect); Opiate Screen Urine Not Detected (Not Detect); Phencyclidine Screen Urine Not Detected (Not Detect)
[2021-05-07 13:12] LABS: Basophils Percent Auto 0.4 % (0-2); Eosinophils Absolute Auto 0.1 X10*3/uL (0.0-0.4); Eosinophils Percent Auto 1.8 % (0-4); Hematocrit 39.1 % (37-47); Hemoglobin 12.9 g/dl (12.0-16.0); Imm Gran Abs Auto 0.01 X10*3/uL (0.00-0.03); Imm Gran Pct Auto 0.1 % (0.0-0.4); Lymphocytes Absolute Auto 1.4 X10*3/uL (1.2-4.9); Lymphocytes Percent Auto 19.9 % (20-40); MANUAL DIFF FLAG NO; Mean Corpuscular Hemoglobin 30.6 pg (27.0-33.0); Mean Corpuscular Volume 92.7 fL (80-98); Mean Platelet Volume 9.6 fL (9.4-12.3); Monocytes Absolute Auto 0.4 X10*3/uL (0.1-1.2); Monocytes Percent Auto 6.1 % (2-11); Neutrophils Absolute Auto 4.9 X10*3/uL (2.0-8.3); Neutrophils Percent Auto 71.7 % (45-73); Platelet Count 254 X10*3/uL (160-400); Red Blood Count 4.22 X10*6/uL (4.20-5.50); Red Cell Distribution Width 12.6 % (11.0-16.0); White Blood Count 6.8 X10*3/uL (4.8-10.8)
[2021-05-07 13:14] LABS: COVID-19 Test Negative (Negative)
[2021-05-07 13:33] LABS: Ethanol < 10 mg/dL
[2021-05-07 13:38] LABS: Alanine Aminotransferase 13 U/L (0-31); Albumin Level 4.3 g/dL (3.5-5.0); Alkaline Phosphatase 103 U/L (39-117); Anion Gap 14 (12-20); Aspartate Amino Transferase 15 U/L (5-31); Bilirubin Total 0.3 mg/dL (0.0-1.0); Blood Urea Nitrogen 6 mg/dL (9-16); Calcium 9.1 mg/dL (8.4-10.2); Carbon Dioxide 22 mmol/L (22-29); Chloride 103 mmol/L (96-108); Creatinine Clr Calc Pharmacy 102.7; Estimated Glomerular Filt Rate > 60; Glucose Random 109 mg/dL (60-115); Salicylate < 5.0 mg/dL (15-30); Sodium 135 mmol/L (135-145)
[2021-05-07 13:44] LABS: Acetaminophen LAB < 1 mcg/mL (<30)
[2021-05-07] MEDS: chlorproMAZINE HCl 25 MG TABLET 50 MG PO (16:07)
[2021-05-07] MEDS: Nicotine 21 MG PATCH.TD24 TRANSDERMA (16:10)
[2021-05-07] MEDS: HaloperidoL 1 MG TABLET 3 MG PO ×2 (16:11→21:25)
[2021-05-07 17:25] VITALS: BP 139/66; PULSE 95; TEMP 36.5; O2SAT 97
[2021-05-07] MEDS: lisinopriL 5 MG TABLET PO (17:25)
[2021-05-07] MEDS: metFORMIN HCl 500 MG TABLET PO (17:29)
--- NOTE | 2021-05-07 18:00 | PC.NURSE ---
Pt reports she is no longer hearing voices and that she wants to go home to see her friends. Pt tearful and scratching at her arms. Care tennis desk team member Jeffrey notified and is presently in with pt discussing plan of care.
--- NOTE | 2021-05-07 18:36 | MHC.CARE ---
1809-Met with pt upon meeting w/ pt?s nurse WALKER Mcgee. WALKER Mcgee advises CARE Team that pt stated she wants to leave and is no longer hearing voices. CARE Team agreed to meet with pt and speak with her regarding her wanting to leave. Pt advises CARE that she is no longer hearing voices. She states that she is ?scared? and wants to ?Go home and hang out with her friends?. Pt advised that she is a bed search and will be staying until a bed is secured for her. Pt stated that she does not know what she wants, explaining that she understands that she needs to stay, knows she needs ?something? but cannot determine what it is. 24 hour Mental Status Updates were explained to her and it was agreed upon that this sign writer letterer or painter would speak with her in the morning to conduct her MSU, at which point we would modify the plan for her accordingly if warranted. Pt advised that bed placement at this facility may not happen this weekend and that there is a greater likelihood of being placed at this facility and/or others beginning Sunday. During the discussion, pt was tearful and did appear frightened. She did not reject the idea of continuing to be a bedsearch. A section 12a was put in place for safety and containment and signed and agreed upon by SUPERANNUATION CLERK Rosario Kern. The Section 12a and the plan moving forward was also discussed with pt?s nurse WALKER Mcgee.
[2021-05-07] MEDS: Montelukast Sodium 10 MG TABLET PO (21:25)
[2021-05-07] MEDS: Benztropine Mesylate 1 MG TABLET PO (21:26)
[2021-05-07] MEDS: Fluticasone Propionate 100 MCG BLST.W.DEV 2 PUFF INHALE (21:26)
[2021-05-07] MEDS: Omeprazole 20 MG CAPSULE.DR PO (21:26)
[2021-05-07] MEDS: traZODone HCL 50 MG TABLET 150 MG PO (21:26)
[2021-05-07 21:30] VITALS: BP 110/75; PULSE 96
[2021-05-07] MEDS: Doxazosin Mesylate 1 MG TABLET 3 MG PO (21:30)
[2021-05-07] MEDS: VerapamiL HCL SR 240 MG TABLET.ER PO (21:30)
[2021-05-07 21:40] VITALS: BP 110/75; PULSE 96; TEMP 36.1; O2SAT 95
--- NOTE | 2021-05-08 06:07 | PC.NURSE ---
Patient slept through the night, no distress observed/reported, mood and behavior appropriate, med compliant, disposition section 12 inpatient bed search, VSS, will continue to monitor.
[2021-05-08 06:12] VITALS: BP 98/65; PULSE 83; RESP 16; TEMP 36.4; O2SAT 95
[2021-05-08] MEDS: metFORMIN HCl 500 MG TABLET PO (08:28)
[2021-05-08 08:29] VITALS: BP 130/82; PULSE 80
[2021-05-08] MEDS: HaloperidoL 1 MG TABLET 3 MG PO (08:29)
[2021-05-08] MEDS: Naltrexone HCl 50 MG TABLET PO (08:29)
[2021-05-08] MEDS: lisinopriL 5 MG TABLET PO (08:29)
[2021-05-08] MEDS: Omeprazole 20 MG CAPSULE.DR PO (08:29)
[2021-05-08] MEDS: Benztropine Mesylate 1 MG TABLET PO (08:29)
[2021-05-08] MEDS: Nicotine 21 MG PATCH.TD24 TRANSDERMA (08:29)
[2021-05-08] MEDS: Fluticasone Propionate 100 MCG BLST.W.DEV 2 PUFF INHALE (08:31)
[2021-05-08 11:43] VITALS: BP 130/82; PULSE 82; RESP 17; TEMP 36.6; O2SAT 97
== END 2021-05-08 12:37 | disposition home or self-care (01) ==
PROVIDERS: Emergency Provider Emergency Medicine; PCP Internal Medicine
DX: F43.10 Post-traumatic stress disorder, unspecified (principal); F60.3 Borderline personality disorder; F39 Unspecified mood [affective] disorder; R45.851 Suicidal ideations; F41.9 Anxiety disorder, unspecified; F17.210 Nicotine dependence, cigarettes, uncomplicated; Z20.822 Contact with and (suspected) exposure to COVID-19
CPT/HCPCS: 36415; 80053; 80143; 80179; 80307; 81025; 82077; 85025; 87635; 99285

== ENCOUNTER 2021-05-09 17:50 | Inpatient (IN) | payer MEDICARE, MEDICAID, SELFPAY ==
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
[2021-05-09 18:08] VITALS: BP 118/73; BP 155/95; PULSE 107; PULSE 130; RESP 16; TEMP 36.7; O2SAT 94; O2SAT 97; BMI 36.6
--- NOTE | 2021-05-09 19:22 | PC.NURSE ---
[facility] called to confirm patient's disposition, spoke with Romana and she that notified patient's disposition is section 12 Inpatient Bed Search, will continue to monitor.
[2021-05-09 19:35] LABS: Glucose Urine UA NEG (NEG); Leukocyte Esterase Urine 1+ (NEG); Nitrite Urine NEG (NEG); Specific Gravity - Urine <= 1.005 (1.005-1.025); UACC Culture Trigger YES; Urine Blood 3+ (NEG); Urine Ketones NEG (NEG); Urine Protein 1+ MG/DL (NEG-TRACE)
[2021-05-09 19:36] LABS: Color Urine PINK
[2021-05-09 19:37] LABS: Appearance Urine HAZY
[2021-05-09 19:47] LABS: COVID-19 Test Negative (Negative); IDNOW Serial# 08D9AD1C
[2021-05-09 19:49] LABS: Bacteria Urine TRACE /LPF; Squamous Epithelial Cell Urine TRACE /LPF
[2021-05-09 20:04] LABS: Amphetamine Screen Urine Not Detected (Not Detect); Barbiturates, Urine Not Detected (Not Detect); Benzodiazepines Screen Urine Not Detected (Not Detect); Cannabinoid Screen Urine Not Detected (Not Detect); Cocaine Screen Urine Not Detected (Not Detect); Opiate Screen Urine Not Detected (Not Detect); Phencyclidine Screen Urine Not Detected (Not Detect)
[2021-05-09 20:14] VITALS: BP 157/97; PULSE 100
[2021-05-09] MEDS: Doxazosin Mesylate 1 MG TABLET 3 MG PO (20:14)
[2021-05-09] MEDS: Omeprazole 20 MG CAPSULE.DR PO (20:15)
[2021-05-09] MEDS: HaloperidoL 1 MG TABLET 3 MG PO (20:15)
[2021-05-09] MEDS: Montelukast Sodium 10 MG TABLET PO (20:15)
[2021-05-09] MEDS: chlorproMAZINE HCl 25 MG TABLET 50 MG PO (20:15)
[2021-05-09] MEDS: metFORMIN HCl 500 MG TABLET PO (20:15)
[2021-05-09] MEDS: Atorvastatin Calcium 10 MG TABLET PO (20:15)
[2021-05-09] MEDS: Benztropine Mesylate 1 MG TABLET PO (20:16)
[2021-05-09] MEDS: Fluticasone Propionate 100 MCG BLST.W.DEV 2 PUFF INHALE ×2 (20:20→20:25)
[2021-05-09] MEDS: traZODone HCL 50 MG TABLET 150 MG PO ×2 (20:22→20:39)
[2021-05-09 20:39] VITALS: BP 157/97; PULSE 100
[2021-05-09] MEDS: VerapamiL HCL SR 240 MG TABLET.ER PO (20:39)
--- NOTE | 2021-05-10 | ECG_ITS ---
Test Reason : MED CLEARANCE Blood Pressure : / mmHG Vent. Rate : 080 BPM Atrial Rate : 080 BPM P-R Int : 178 ms QRS Dur : 082 ms QT Int : 394 ms P-R-T Axes : 004 -04 -06 degrees QTc Int : 454 ms Normal sinus rhythm Nonspecific ST and T wave abnormality inferior leads Borderline ECG When compared with ECG of 03-MAY-2021 15:46, Non-specific change in ST segment in Inferior leads Referred By: Sheryl Chen Electronically Signed By:MAURI COLE
--- NOTE | 2021-05-10 05:50 | PC.NURSE ---
Patient slept through the night, no distress observed/reported, med compliant, appetite good, mood and affect expansive, disposition section 12 inpatient bed search, will continue to monitor.
--- NOTE | 2021-05-10 07:18 | PC.NURSE ---
patient appears to remain at rest at present, patient appears in no distress respirations are even and unlabored
[2021-05-10] MEDS: Fluticasone Propionate 100 MCG BLST.W.DEV 2 PUFF INHALE ×2 (07:43→22:24)
[2021-05-10] MEDS: Albuterol Sulfate 90 MCG 8 GM INHALER 2 PUFF INHALE (07:43)
[2021-05-10 07:55] VITALS: BP 137/82; PULSE 94; RESP 15; TEMP 36.3; O2SAT 96
[2021-05-10 08:25] VITALS: BP 137/82; PULSE 94
[2021-05-10] MEDS: Nicotine 21 MG PATCH.TD24 TRANSDERMA (08:25)
[2021-05-10] MEDS: Ferrous Sulfate 324 MG TABLET.DR PO (08:25)
[2021-05-10] MEDS: HaloperidoL 1 MG TABLET 3 MG PO ×3 (08:25→22:09)
[2021-05-10] MEDS: metFORMIN HCl 500 MG TABLET PO ×2 (08:26→17:40)
[2021-05-10] MEDS: Benztropine Mesylate 1 MG TABLET PO ×2 (08:26→22:08)
[2021-05-10] MEDS: Naltrexone HCl 50 MG TABLET PO (08:26)
[2021-05-10] MEDS: Omeprazole 20 MG CAPSULE.DR PO ×2 (10:30→22:08)
[2021-05-10] MEDS: chlorproMAZINE HCl 25 MG TABLET 50 MG PO ×2 (13:53→20:08)
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
[2021-05-10] MEDS: traZODone HCL 50 MG TABLET 150 MG PO (20:39)
[2021-05-10 22:07] VITALS: BP 118/60; PULSE 85
[2021-05-10] MEDS: VerapamiL HCL SR 240 MG TABLET.ER PO (22:07)
[2021-05-10 22:08] VITALS: BP 118/60; PULSE 85
[2021-05-10] MEDS: Atorvastatin Calcium 10 MG TABLET PO (22:08)
[2021-05-10] MEDS: Doxazosin Mesylate 1 MG TABLET 3 MG PO (22:08)
[2021-05-10] MEDS: Montelukast Sodium 10 MG TABLET PO (22:10)
[2021-05-10 22:14] VITALS: BP 118/60; PULSE 86; TEMP 37; O2SAT 90
[2021-05-11 06:00] VITALS: BP 114/63; PULSE 82; RESP 16; TEMP 36.8; O2SAT 95
[2021-05-11 08:13] VITALS: BP 114/63; PULSE 82
[2021-05-11] MEDS: Benztropine Mesylate 1 MG TABLET PO ×2 (08:13→20:46)
[2021-05-11] MEDS: HaloperidoL 1 MG TABLET 3 MG PO ×3 (08:13→20:46)
[2021-05-11] MEDS: Ferrous Sulfate 324 MG TABLET.DR PO (08:14)
[2021-05-11] MEDS: metFORMIN HCl 500 MG TABLET PO ×2 (08:14→17:35)
[2021-05-11] MEDS: Omeprazole 20 MG CAPSULE.DR PO ×2 (08:14→20:46)
[2021-05-11] MEDS: Naltrexone HCl 50 MG TABLET PO (08:14)
[2021-05-11] MEDS: Fluticasone Propionate 100 MCG BLST.W.DEV 2 PUFF INHALE ×2 (09:38→20:47)
[2021-05-11] MEDS: Nicotine 21 MG PATCH.TD24 TRANSDERMA (09:38)
[2021-05-11] MEDS: chlorproMAZINE HCl 25 MG TABLET 50 MG PO ×2 (09:45→15:42)
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
[2021-05-11] MEDS: Acetaminophen 325 MG TABLET 650 MG PO (13:28)
[2021-05-11 20:46] VITALS: BP 143/94; PULSE 95
[2021-05-11] MEDS: Atorvastatin Calcium 10 MG TABLET PO (20:46)
[2021-05-11] MEDS: Montelukast Sodium 10 MG TABLET PO (20:46)
[2021-05-11] MEDS: VerapamiL HCL SR 240 MG TABLET.ER PO (20:46)
[2021-05-11] MEDS: traZODone HCL 50 MG TABLET 150 MG PO (20:46)
[2021-05-11 20:47] VITALS: BP 143/94; PULSE 95
[2021-05-11] MEDS: Doxazosin Mesylate 1 MG TABLET 3 MG PO (20:47)
[2021-05-11 20:57] VITALS: TEMP 36.6; O2SAT 97
[2021-05-12] MEDS: Albuterol Sulfate 90 MCG 8 GM INHALER 2 PUFF INHALE (00:13)
[2021-05-12 06:31] LABS: Glucose, Whole Blood 124 mg/dL (60-115)
[2021-05-12] MEDS: Naltrexone HCl 50 MG TABLET PO (08:03)
[2021-05-12] MEDS: HaloperidoL 1 MG TABLET 3 MG PO ×3 (08:03→21:06)
[2021-05-12] MEDS: Omeprazole 20 MG CAPSULE.DR PO ×2 (08:03→21:06)
[2021-05-12] MEDS: Fluticasone Propionate 100 MCG BLST.W.DEV 2 PUFF INHALE ×2 (08:03→21:07)
[2021-05-12] MEDS: Ferrous Sulfate 324 MG TABLET.DR PO (08:03)
[2021-05-12] MEDS: metFORMIN HCl 500 MG TABLET PO ×2 (08:03→16:53)
[2021-05-12 08:04] VITALS: BP 121/78; PULSE 92
[2021-05-12] MEDS: Benztropine Mesylate 1 MG TABLET PO ×2 (08:04→21:06)
[2021-05-12 08:13] VITALS: BP 121/78; PULSE 92; RESP 18; TEMP 36.2; O2SAT 95
[2021-05-12] MEDS: Nicotine 21 MG PATCH.TD24 TRANSDERMA (10:39)
[2021-05-12] MEDS: Clotrimazole 1 % Cream 15 GM TUBE 1 APPL TOPICAL (10:40)
--- NOTE | 2021-05-12 12:59 | HO.PSYCHPN ---
Subjective Subjective Date of Service: 05/12/21 Reason For Visit: SI Interim History: pt was found lying in her bed for a nap late morning. she was amenable to come to interview room for discussion. she stated she did not like the new plan of staff's not spending a lot of 1:1 time with her. explained the rationale, to support her independence in managing difficult emotions and impulses on her own. pt replied that there are staff at her custodial that she does things with often, such as watching TV or playing games. she reported she had nightmares last night, of her father. there is nothing that happens in the day which might predict them. she is agreeable to increase doxazosin to 4 mg at HS to address the nightmares. no other requests or complaints. per staff, some mild head-banging last night. Mental Status Exam Mental Status Exam Narrative: appropriately dressed and groomed. no PMA/PMR. cooperative with interview. speech soft, nml rate, amount, latency. decreased prosody. thoughts linear and logical. affect constricted, normo-intense, non-labile. mood still bad. but a little bit better. no SI/HI/AVH expressed. Diagnostics Vital Signs (24Hr): Vital Signs - 24 hr 05/11/21 20:46 05/11/21 20:47 05/11/21 20:57 Temperature 97.8 F Pulse Rate 95 95 Respiratory Rate Blood Pressure 143/94 H 143/94 H Pulse Oximetry 97 05/12/21 08:04 05/12/21 08:13 Temperature 97.1 F Pulse Rate 92 92 Respiratory Rate 18 Blood Pressure 121/78 121/78 Pulse Oximetry 95 Body Mass Index 36.6 Labs Labs: Laboratory Results - last 48 hr 05/12/21 06:27 POC Glucose 124 H Medications Medications Current Medications Generic Name Dose Route Start Last Admin Trade Name Freq PRN Reason Stop Dose Admin Acetaminophen 650 mg 05/10/21 16:07 05/11/21 13:28 Acetaminophen 325 Mg Tablet PO 650 mg Q6H PRN Administration Headache/Pain Mild Scale (1-3) Al Hydroxide/Mg Hydroxide 30 ml 05/10/21 16:07 Magnesium Hydrox/Alum Hydrox 30 Ml Oral.Susp PO Q6H PRN Heartburn/Nausea Albuterol Sulfate 2 puff 05/09/21 19:48 05/12/21 00:13 Albuterol Sulfate 90 Mcg 8 Gm Inhaler INHALE 2 puff RQ4H PRN Administration Shortness Of Breath Atorvastatin Calcium 10 mg 05/09/21 21:00 05/11/21 20:46 Atorvastatin Calcium 10 Mg Tablet PO 10 mg BEDTIME YULY Administration Benztropine Mesylate 1 mg 05/09/21 21:00 05/12/21 08:04 Benztropine Mesylate 1 Mg Tablet PO 1 mg BID YULY Administration Chlorpromazine HCl 50 mg 05/10/21 19:39 05/11/21 15:42 Chlorpromazine Hcl 25 Mg Tablet PO 50 mg QID PRN Administration Psychosis Clotrimazole 1 appl 05/09/21 21:00 05/12/21 10:40 Clotrimazole 1 % Cream 15 Gm Tube TOPICAL 1 appl BID YULY Administration Protocol Doxazosin Mesylate 4 mg 05/12/21 21:00 Doxazosin Mesylate 2 Mg Tablet PO BEDTIME YULY Protocol Ferrous Sulfate 324 mg 05/10/21 09:00 05/12/21 08:03 Ferrous Sulfate 324 Mg Tablet.Dr PO 324 mg DAILY YULY Administration Fluticasone Propionate 2 puff 05/09/21 20:30 05/12/21 08:03 Fluticasone Propionate 100 Mcg Blst.W.Dev INHALE 2 puff RBID YULY Administration Haloperidol 3 mg 05/09/21 21:00 05/12/21 08:03 Haloperidol 1 Mg Tablet PO 3 mg TID YULY Administration Haloperidol Decanoate 100 mg 05/15/21 20:00 Haloperidol Decanoate 50 Mg/Ml Ampul IM Q28D YULY Lisinopril 5 mg 05/10/21 09:00 05/12/21 08:04 Lisinopril 5 Mg Tablet PO 5 mg DAILY YULY Administration Protocol Magnesium Hydroxide 30 ml 05/10/21 16:07 Milk Of Magnesia 30 Ml Oral.Susp PO DAILY PRN Constipation Metformin HCl 500 mg 05/09/21 20:00 05/12/21 08:03 Metformin Hcl 500 Mg Tablet PO 500 mg BID@0900,1700 YULY Administration Montelukast Sodium 10 mg 05/09/21 21:00 05/11/21 20:46 Montelukast Sodium 10 Mg Tablet PO 10 mg BEDTIME YULY Administration Naltrexone HCl 50 mg 05/10/21 09:00 05/12/21 08:03 Naltrexone Hcl 50 Mg Tablet PO 50 mg DAILY YULY Administration Nicotine 21 mg 05/10/21 09:00 05/12/21 10:39 Nicotine 21 Mg Patch.Td24 TRANSDERMA 21 mg DAILY YULY Administration Nicotine Polacrilex 2 mg 05/09/21 19:48 Nicotine Polacrilex Lozenge 2 Mg Lozenge BUCCAL Q2H PRN Nicotine Cravings Omeprazole 20 mg 05/09/21 21:00 05/12/21 08:03 Omeprazole 20 Mg Capsule.Dr PO 20 mg BID YULY Administration Polyethylene Glycol 17 gm 05/09/21 19:48 05/12/21 09:03 Polyethylene Glycol 3350 17 Gm Powd.Pack PO 17 gm DAILY PRN Administration Constipation Trazodone HCl 150 mg 05/09/21 21:00 05/11/21 20:46 Trazodone Hcl 50 Mg Tablet PO 150 mg BEDTIME YULY Administration Verapamil HCl 240 mg 05/09/21 21:00 05/11/21 20:46 Verapamil Hcl Sr 240 Mg Tablet.Er PO 240 mg BEDTIME YULY Administration Protocol Allergies Allergies Allergy/AdvReac Type Severity Reaction Status Date / Time Fish Containing Products Allergy Severe ANAPHYLAXIS Verified 04/20/21 17:39 codeine [Codeine] Allergy Unknown RASH Verified 04/20/21 17:39 Penicillins Allergy Unknown RASH Verified 04/20/21 17:39 prednisone [Prednisone] Allergy Unknown RASH Verified 04/20/21 17:39 Sulfa (Sulfonamide Allergy Unknown RASH Verified 04/20/21 17:39 Antibiotics) [Sulfa (Sulfonamides)] azithromycin [AZITHROMYCIN] AdvReac Severe RASH Verified 04/20/21 17:39 nicotine AdvReac Unknown HEART Verified 04/20/21 17:39 PALPITATION TO NICOTINE GUM Seafood Allergy Severe ANAPHYLAXIS Uncoded 07/01/20 16:44 From Geodon Allergy Unknown DYSURIA, Uncoded 07/01/20 16:44 RASH Assessment & Plan Assessment & Plan (1) Borderline personality disorder: Status: Acute Code(s): F60.3 - Borderline personality disorder Assessment and Plan: shoot for a short hospitalization, support pt in engaging in outpt treatment. keep safe while hospitalized, reduce opportunities for self-harm. T/C residential DBT program. (2) PTSD (post-traumatic stress disorder): Status: Acute Code(s): F43.10 - Post-traumatic stress disorder, unspecified Assessment and Plan: maintain safety on unit, which is hopefully a less triggering environment than her custodial currently. discharge back to custodial once stable. thorazine PRNs available. increased doxazosin from 3 mg QHS to 4 mg QHS as of 05/12 to target nightmares and insomnia. otherwise kept home meds as per prior. Greater than 50% of the session was spent on counseling and/or coordination of care Reason for contiued inpatient stay Substantial Risk for: harm to self
[2021-05-12] MEDS: chlorproMAZINE HCl 25 MG TABLET 50 MG PO ×2 (13:15→20:06)
[2021-05-12 19:20] VITALS: BP 124/83; PULSE 87; RESP 18; TEMP 36.4; O2SAT 98
[2021-05-12 20:50] VITALS: TEMP 35.4; O2SAT 97
[2021-05-12 21:06] VITALS: BP 142/84; PULSE 79
[2021-05-12] MEDS: VerapamiL HCL SR 240 MG TABLET.ER PO (21:06)
[2021-05-12] MEDS: Atorvastatin Calcium 10 MG TABLET PO (21:06)
[2021-05-12] MEDS: Montelukast Sodium 10 MG TABLET PO (21:06)
[2021-05-12] MEDS: traZODone HCL 50 MG TABLET 150 MG PO (21:06)
[2021-05-12 21:07] VITALS: BP 142/84; PULSE 79
[2021-05-12] MEDS: Doxazosin Mesylate 2 MG TABLET 4 MG PO (21:07)
[2021-05-13 06:00] VITALS: BP 125/80; PULSE 97; RESP 16; TEMP 36.4; O2SAT 96
[2021-05-13 06:37] LABS: Glucose, Whole Blood 124 mg/dL (60-115)
[2021-05-13] MEDS: Nicotine 21 MG PATCH.TD24 TRANSDERMA (09:08)
[2021-05-13] MEDS: Ferrous Sulfate 324 MG TABLET.DR PO (09:08)
[2021-05-13] MEDS: Benztropine Mesylate 1 MG TABLET PO ×2 (09:08→20:41)
[2021-05-13] MEDS: Naltrexone HCl 50 MG TABLET PO (09:08)
[2021-05-13] MEDS: HaloperidoL 1 MG TABLET 3 MG PO ×3 (09:08→20:42)
[2021-05-13] MEDS: Omeprazole 20 MG CAPSULE.DR PO ×2 (09:08→20:43)
[2021-05-13] MEDS: metFORMIN HCl 500 MG TABLET PO ×2 (09:08→17:24)
[2021-05-13] MEDS: Fluticasone Propionate 100 MCG BLST.W.DEV 2 PUFF INHALE ×2 (09:09→20:40)
[2021-05-13] MEDS: chlorproMAZINE HCl 25 MG TABLET 50 MG PO ×2 (10:00→15:04)
[2021-05-13] MEDS: Acetaminophen 325 MG TABLET 650 MG PO (11:05)
[2021-05-13] MEDS: Albuterol Sulfate 90 MCG 8 GM INHALER 2 PUFF INHALE (11:42)
[2021-05-13] MEDS: Milk of Magnesia 30 ML ORAL.SUSP PO (13:51)
--- NOTE | 2021-05-13 14:25 | P.PNPSI_ITS ---
Subjective Subjective Date of Service: 05/13/21 Reason For Visit: SI Interim History: Pt reports she continues to have intermittent suicidal thoughts along with urges to engage in self injurious behaviors such as head bandging- which she is able to be redirected by staff when seen doing it. However, these are chronic. She reports liking her job a lot, feeling unsafe at home when she has intrusive thoughts of wanting to hurt herself or suicidal ideation. Today, asking to go home soon. Does admit that multiple admission through out the year not much therapeutic benefit. No behavioral concerns. visible in unit, attending groups. Medication Compliance: Yes Side effects from medications: No Review of Systems Review of Systems Constitutional: No Fever, No Chills ENT/Mouth: No sore throat, No Rhinorrhea, No Swallowing Difficulty Cardiovascular: No Chest Pain, No SOB, No Orthopnea, No Edema Respiratory: No Cough, No Sputum, No Wheezing, No dyspnea Gastrointestinal: No Nausea, No Vomiting, No Diarrhea, No abdominal Pain Genitourinary: No Dysuria, No Urinary Frequency, No Hematuria Musculoskeletal: No joint pain, No Myalgias Skin: + Skin Lesions, No rash Neuro: No Weakness, No Numbness, No Dizziness, + Headache Psych: + Anxiety/Panic, + Depression, +AH, No VH, +SI Heme/Lymph: No Bruising, No Lymphadenopathy Endocrine: No Polyuria, No Polydipsia Mental Status Exam Mental Status Exam Narrative: appropriately dressed and groomed. no PMA/PMR. cooperative with interview. speech soft, nml rate, amount, latency. decreased prosody. thoughts linear and logical. affect constricted, normo-intense, non-labile. mood still bad. but a little bit better. no SI/HI/AVH expressed. Diagnostics Vital Signs (24Hr): Vital Signs - 24 hr 05/12/21 19:20 05/12/21 20:50 05/12/21 21:06 Temperature 97.6 F 95.8 F L Pulse Rate 87 79 Respiratory Rate 18 Blood Pressure 124/83 142/84 H Pulse Oximetry 98 97 05/12/21 21:07 05/13/21 06:00 Temperature 97.6 F Pulse Rate 79 97 Respiratory Rate 16 Blood Pressure 142/84 H 125/80 Pulse Oximetry 96 Body Mass Index 36.6 Labs Labs: Laboratory Results - last 48 hr 05/12/21 05/13/21 06:27 06:13 POC Glucose 124 H 124 H Medications Medications Current Medications Generic Name Dose Route Start Last Admin Trade Name Freq PRN Reason Stop Dose Admin Acetaminophen 650 mg 05/10/21 16:07 05/13/21 11:05 Acetaminophen 325 Mg Tablet PO 650 mg Q6H PRN Administration Headache/Pain Mild Scale (1-3) Al Hydroxide/Mg Hydroxide 30 ml 05/10/21 16:07 Magnesium Hydrox/Alum Hydrox 30 Ml Oral.Susp PO Q6H PRN Heartburn/Nausea Albuterol Sulfate 2 puff 05/09/21 19:48 05/13/21 11:42 Albuterol Sulfate 90 Mcg 8 Gm Inhaler INHALE 2 puff RQ4H PRN Administration Shortness Of Breath Atorvastatin Calcium 10 mg 05/09/21 21:00 05/12/21 21:06 Atorvastatin Calcium 10 Mg Tablet PO 10 mg BEDTIME YULY Administration Benztropine Mesylate 1 mg 05/09/21 21:00 05/13/21 09:08 Benztropine Mesylate 1 Mg Tablet PO 1 mg BID YULY Administration Chlorpromazine HCl 50 mg 05/10/21 19:39 05/13/21 10:00 Chlorpromazine Hcl 25 Mg Tablet PO 50 mg QID PRN Administration Psychosis Clotrimazole 1 appl 05/09/21 21:00 05/13/21 09:14 Clotrimazole 1 % Cream 15 Gm Tube TOPICAL Not Given BID YULY Protocol Doxazosin Mesylate 4 mg 05/12/21 21:00 05/12/21 21:07 Doxazosin Mesylate 2 Mg Tablet PO 4 mg BEDTIME YULY Administration Protocol Ferrous Sulfate 324 mg 05/10/21 09:00 05/13/21 09:08 Ferrous Sulfate 324 Mg Tablet. PO 324 mg DAILY YULY Administration Fluticasone Propionate 2 puff 05/09/21 20:30 05/13/21 09:09 Fluticasone Propionate 100 Mcg Blst.W.Dev INHALE 2 puff RBID YULY Administration Haloperidol 3 mg 05/09/21 21:00 05/13/21 09:08 Haloperidol 1 Mg Tablet PO 3 mg TID YULY Administration Haloperidol Decanoate 100 mg 05/15/21 20:00 Haloperidol Decanoate 50 Mg/Ml Ampul IM Q28D YULY Lisinopril 5 mg 05/10/21 09:00 05/13/21 09:08 Lisinopril 5 Mg Tablet PO 5 mg DAILY YULY Administration Protocol Magnesium Hydroxide 30 ml 05/10/21 16:07 05/13/21 13:51 Milk Of Magnesia 30 Ml Oral.Susp PO 30 ml DAILY PRN Administration Constipation Metformin HCl 500 mg 05/09/21 20:00 05/13/21 09:08 Metformin Hcl 500 Mg Tablet PO 500 mg BID@0900,1700 YULY Administration Montelukast Sodium 10 mg 05/09/21 21:00 05/12/21 21:06 Montelukast Sodium 10 Mg Tablet PO 10 mg BEDTIME YULY Administration Naltrexone HCl 50 mg 05/10/21 09:00 05/13/21 09:08 Naltrexone Hcl 50 Mg Tablet PO 50 mg DAILY YULY Administration Nicotine 21 mg 05/10/21 09:00 05/13/21 09:08 Nicotine 21 Mg Patch.Td24 TRANSDERMA 21 mg DAILY YULY Administration Nicotine Polacrilex 2 mg 05/09/21 19:48 Nicotine Polacrilex Lozenge 2 Mg Lozenge BUCCAL Q2H PRN Nicotine Cravings Omeprazole 20 mg 05/09/21 21:00 05/13/21 09:08 Omeprazole 20 Mg Capsule.Dr PO 20 mg BID YULY Administration Polyethylene Glycol 17 gm 05/09/21 19:48 05/13/21 12:01 Polyethylene Glycol 3350 17 Gm Powd.Pack PO 17 gm DAILY PRN Administration Constipation Trazodone HCl 150 mg 05/09/21 21:00 05/12/21 21:06 Trazodone Hcl 50 Mg Tablet PO 150 mg BEDTIME YULY Administration Verapamil HCl 240 mg 05/09/21 21:00 05/12/21 21:06 Verapamil Hcl Sr 240 Mg Tablet.Er PO 240 mg BEDTIME YULY Administration Protocol Allergies Allergies Allergy/AdvReac Type Severity Reaction Status Date / Time Fish Containing Products Allergy Severe ANAPHYLAXIS Verified 04/20/21 17:39 codeine [Codeine] Allergy Unknown RASH Verified 04/20/21 17:39 Penicillins Allergy Unknown RASH Verified 04/20/21 17:39 prednisone [Prednisone] Allergy Unknown RASH Verified 04/20/21 17:39 Sulfa (Sulfonamide Allergy Unknown RASH Verified 04/20/21 17:39 Antibiotics) [Sulfa (Sulfonamides)] azithromycin [AZITHROMYCIN] AdvReac Severe RASH Verified 04/20/21 17:39 nicotine AdvReac Unknown HEART Verified 04/20/21 17:39 PALPITATION TO NICOTINE GUM Seafood Allergy Severe ANAPHYLAXIS Uncoded 07/01/20 16:44 From Geodon Allergy Unknown DYSURIA, Uncoded 07/01/20 16:44 RASH Assessment & Plan Assessment & Plan (1) Borderline personality disorder: Status: Acute Code(s): F60.3 - Borderline personality disorder Assessment and Plan: Continue plan per primary treatment team: shoot for a short hospitalization, support pt in engaging in outpt treatment. keep safe while hospitalized, reduce opportunities for self-harm. T/C residential DBT program. (2) PTSD (post-traumatic stress disorder): Status: Acute Code(s): F43.10 - Post-traumatic stress disorder, unspecified Assessment and Plan: maintain safety on unit, which is hopefully a less triggering environment than her residential currently. discharge back to residential once stable. thorazine PRNs available. increased doxazosin from 3 mg QHS to 4 mg QHS as of 05/12 to target nightmares and insomnia. otherwise kept home meds as per prior. Greater than 50% of the session was spent on counseling and/or coordination of care Reason for contiued inpatient stay Substantial Risk for: harm to self
[2021-05-13 20:10] VITALS: BP 115/82; PULSE 92; RESP 20; TEMP 36.7; O2SAT 95
[2021-05-13 20:41] VITALS: BP 115/82; PULSE 92
[2021-05-13] MEDS: Atorvastatin Calcium 10 MG TABLET PO (20:41)
[2021-05-13] MEDS: Doxazosin Mesylate 2 MG TABLET 4 MG PO (20:41)
[2021-05-13 20:43] VITALS: BP 115/82; PULSE 92
[2021-05-13] MEDS: VerapamiL HCL SR 240 MG TABLET.ER PO (20:43)
[2021-05-13] MEDS: Montelukast Sodium 10 MG TABLET PO (20:43)
[2021-05-13] MEDS: traZODone HCL 50 MG TABLET 150 MG PO (20:48)
--- NOTE | 2021-05-13 21:24 | PC.NURSE ---
Patient was not given 2 doses of 150mg of Trazodone. There was an error in the initial logging of the Trazodone and each day the trazodone was recorded on the next day. Patient only received 150 mg of Trazodone on 05/13/2021
[2021-05-14] MEDS: chlorproMAZINE HCl 25 MG TABLET 50 MG PO (01:39)
[2021-05-14 07:40] LABS: Glucose, Whole Blood 105 mg/dL (60-115)
[2021-05-14 08:00] VITALS: BP 138/78; PULSE 76; RESP 18; TEMP 36.3; O2SAT 96
[2021-05-14 08:06] VITALS: BP 138/78; PULSE 76
[2021-05-14] MEDS: metFORMIN HCl 500 MG TABLET PO ×2 (08:06→16:45)
[2021-05-14] MEDS: Benztropine Mesylate 1 MG TABLET PO ×2 (08:06→21:59)
[2021-05-14] MEDS: HaloperidoL 1 MG TABLET 3 MG PO ×3 (08:06→22:02)
[2021-05-14] MEDS: Ferrous Sulfate 324 MG TABLET.DR PO (08:06)
[2021-05-14] MEDS: Naltrexone HCl 50 MG TABLET PO (08:07)
[2021-05-14] MEDS: Omeprazole 20 MG CAPSULE.DR PO ×2 (08:07→22:01)
[2021-05-14] MEDS: Nicotine 21 MG PATCH.TD24 TRANSDERMA (08:16)
[2021-05-14] MEDS: Fluticasone Propionate 100 MCG BLST.W.DEV 2 PUFF INHALE ×2 (09:55→21:58)
[2021-05-14] MEDS: Magnesium Citrate 300 ML SOLUTION PO (15:54)
--- NOTE | 2021-05-14 20:22 | HO.PSYCHPN ---
Subjective Subjective Date of Service: 05/14/21 Reason For Visit: SI Interim History: Pt seen and DW team. She reports she is utilizing her coping skills when has intermittent suicidal thoughts along with urges to engage in self injurious behaviors. She is able to be redirected by staff when seen doing it. However, these are chronic. Does admit that multiple admission through out the year not much therapeutic benefit. No behavioral concerns. visible in unit, attending groups. Review of Systems Review of Systems Constitutional: No Fever, No Chills ENT/Mouth: No sore throat, No Rhinorrhea, No Swallowing Difficulty Cardiovascular: No Chest Pain, No SOB, No Orthopnea, No Edema Respiratory: No Cough, No Sputum, No Wheezing, No dyspnea Gastrointestinal: No Nausea, No Vomiting, No Diarrhea, No abdominal Pain Genitourinary: No Dysuria, No Urinary Frequency, No Hematuria Musculoskeletal: No joint pain, No Myalgias Skin: + Skin Lesions, No rash Neuro: No Weakness, No Numbness, No Dizziness, + Headache Psych: + Anxiety/Panic, + Depression, +AH, No VH, +SI Heme/Lymph: No Bruising, No Lymphadenopathy Endocrine: No Polyuria, No Polydipsia Mental Status Exam Mental Status Exam Narrative: appropriately dressed and groomed. no PMA/PMR. cooperative with interview. speech soft, nml rate, amount, latency. decreased prosody. thoughts linear and logical. affect constricted, normo-intense, non-labile. mood still bad. but a little bit better. Some SI and occasional AH but with no intent of harm to self and able to control self. Diagnostics Vital Signs (24Hr): Vital Signs - 24 hr 05/13/21 20:41 05/13/21 20:43 05/14/21 08:00 Temperature 97.4 F Pulse Rate 92 92 76 Respiratory Rate 18 Blood Pressure 115/82 115/82 138/78 Pulse Oximetry 96 05/14/21 08:06 Temperature Pulse Rate 76 Respiratory Rate Blood Pressure 138/78 Pulse Oximetry Body Mass Index 36.6 Labs Labs: Laboratory Results - last 48 hr 05/13/21 05/14/21 06:13 07:37 POC Glucose 124 H 105 Medications Medications Current Medications Generic Name Dose Route Start Last Admin Trade Name Freq PRN Reason Stop Dose Admin Acetaminophen 650 mg 05/10/21 16:07 05/13/21 11:05 Acetaminophen 325 Mg Tablet PO 650 mg Q6H PRN Administration Headache/Pain Mild Scale (1-3) Al Hydroxide/Mg Hydroxide 30 ml 05/10/21 16:07 Magnesium Hydrox/Alum Hydrox 30 Ml Oral.Susp PO Q6H PRN Heartburn/Nausea Albuterol Sulfate 2 puff 05/09/21 19:48 05/13/21 11:42 Albuterol Sulfate 90 Mcg 8 Gm Inhaler INHALE 2 puff RQ4H PRN Administration Shortness Of Breath Atorvastatin Calcium 10 mg 05/09/21 21:00 05/13/21 20:41 Atorvastatin Calcium 10 Mg Tablet PO 10 mg BEDTIME YULY Administration Benztropine Mesylate 1 mg 05/09/21 21:00 05/14/21 08:06 Benztropine Mesylate 1 Mg Tablet PO 1 mg BID YULY Administration Chlorpromazine HCl 50 mg 05/10/21 19:39 05/14/21 01:39 Chlorpromazine Hcl 25 Mg Tablet PO 50 mg QID PRN Administration Psychosis Clotrimazole 1 appl 05/09/21 21:00 05/14/21 08:19 Clotrimazole 1 % Cream 15 Gm Tube TOPICAL Not Given BID YULY Protocol Doxazosin Mesylate 4 mg 05/12/21 21:00 05/13/21 20:41 Doxazosin Mesylate 2 Mg Tablet PO 4 mg BEDTIME YULY Administration Protocol Ferrous Sulfate 324 mg 05/10/21 09:00 05/14/21 08:06 Ferrous Sulfate 324 Mg Tablet.Dr PO 324 mg DAILY YULY Administration Fluticasone Propionate 2 puff 05/09/21 20:30 05/14/21 09:55 Fluticasone Propionate 100 Mcg Blst.W.Dev INHALE 2 puff RBID YULY Administration Haloperidol 3 mg 05/09/21 21:00 05/14/21 14:13 Haloperidol 1 Mg Tablet PO 3 mg TID YULY Administration Haloperidol Decanoate 100 mg 05/15/21 20:00 Haloperidol Decanoate 50 Mg/Ml Ampul IM Q28D YULY Lisinopril 5 mg 05/10/21 09:00 05/14/21 08:06 Lisinopril 5 Mg Tablet PO 5 mg DAILY YULY Administration Protocol Magnesium Hydroxide 30 ml 05/10/21 16:07 05/13/21 13:51 Milk Of Magnesia 30 Ml Oral.Susp PO 30 ml DAILY PRN Administration Constipation Metformin HCl 500 mg 05/09/21 20:00 05/14/21 16:45 Metformin Hcl 500 Mg Tablet PO 500 mg BID@0900,1700 YULY Administration Montelukast Sodium 10 mg 05/09/21 21:00 05/13/21 20:43 Montelukast Sodium 10 Mg Tablet PO 10 mg BEDTIME YULY Administration Naltrexone HCl 50 mg 05/10/21 09:00 05/14/21 08:07 Naltrexone Hcl 50 Mg Tablet PO 50 mg DAILY YULY Administration Nicotine 21 mg 05/10/21 09:00 05/14/21 08:16 Nicotine 21 Mg Patch.Td24 TRANSDERMA 21 mg DAILY YULY Administration Nicotine Polacrilex 2 mg 05/09/21 19:48 Nicotine Polacrilex Lozenge 2 Mg Lozenge BUCCAL Q2H PRN Nicotine Cravings Omeprazole 20 mg 05/09/21 21:00 05/14/21 08:07 Omeprazole 20 Mg Capsule.Dr PO 20 mg BID YULY Administration Polyethylene Glycol 17 gm 05/09/21 19:48 05/14/21 08:16 Polyethylene Glycol 3350 17 Gm Powd.Pack PO 17 gm DAILY PRN Administration Constipation Trazodone HCl 150 mg 05/09/21 21:00 05/13/21 20:48 Trazodone Hcl 50 Mg Tablet PO 150 mg BEDTIME YULY Administration Verapamil HCl 240 mg 05/09/21 21:00 05/13/21 20:43 Verapamil Hcl Sr 240 Mg Tablet.Er PO 240 mg BEDTIME YULY Administration Protocol Allergies Allergies Allergy/AdvReac Type Severity Reaction Status Date / Time Fish Containing Products Allergy Severe ANAPHYLAXIS Verified 04/20/21 17:39 codeine [Codeine] Allergy Unknown RASH Verified 04/20/21 17:39 Penicillins Allergy Unknown RASH Verified 04/20/21 17:39 prednisone [Prednisone] Allergy Unknown RASH Verified 04/20/21 17:39 Sulfa (Sulfonamide Allergy Unknown RASH Verified 04/20/21 17:39 Antibiotics) [Sulfa (Sulfonamides)] azithromycin [AZITHROMYCIN] AdvReac Severe RASH Verified 04/20/21 17:39 nicotine AdvReac Unknown HEART Verified 04/20/21 17:39 PALPITATION TO NICOTINE GUM Seafood Allergy Severe ANAPHYLAXIS Uncoded 07/01/20 16:44 From Geodon Allergy Unknown DYSURIA, Uncoded 07/01/20 16:44 RASH Assessment & Plan Assessment & Plan (1) Borderline personality disorder: Status: Acute Code(s): F60.3 - Borderline personality disorder Assessment and Plan: Continue plan per primary treatment team: shoot for a short hospitalization, support pt in engaging in outpt treatment. keep safe while hospitalized, reduce opportunities for self-harm. T/C residential DBT program. (2) PTSD (post-traumatic stress disorder): Status: Acute Code(s): F43.10 - Post-traumatic stress disorder, unspecified Assessment and Plan: maintain safety on unit, which is hopefully a less triggering environment than her [facility] currently. [facility] to [facility] once stable. thorazine PRNs available. increased doxazosin from 3 mg QHS to 4 mg QHS as of 05/12 to target nightmares and insomnia. otherwise kept home meds as per prior. Greater than 50% of the session was spent on counseling and/or coordination of care Reason for contiued inpatient stay Substantial Risk for: harm to self and rapid decompensation
[2021-05-14 21:54] VITALS: BP 126/78; PULSE 90; RESP 18; TEMP 36.6; O2SAT 96
[2021-05-14 21:59] VITALS: BP 126/78; PULSE 90
[2021-05-14] MEDS: Atorvastatin Calcium 10 MG TABLET PO (21:59)
[2021-05-14] MEDS: VerapamiL HCL SR 240 MG TABLET.ER PO (21:59)
[2021-05-14] MEDS: Montelukast Sodium 10 MG TABLET PO (22:00)
[2021-05-14] MEDS: traZODone HCL 50 MG TABLET 150 MG PO (22:00)
[2021-05-14 22:01] VITALS: BP 126/78; PULSE 90
[2021-05-14] MEDS: Doxazosin Mesylate 2 MG TABLET 4 MG PO (22:01)
[2021-05-15 06:00] VITALS: BP 101/59; PULSE 80; RESP 18; TEMP 36.8; O2SAT 95
[2021-05-15 06:37] LABS: Glucose, Whole Blood 104 mg/dL (60-115)
[2021-05-15] MEDS: metFORMIN HCl 500 MG TABLET PO ×2 (09:15→18:42)
[2021-05-15] MEDS: HaloperidoL 1 MG TABLET 3 MG PO ×3 (09:15→20:12)
[2021-05-15] MEDS: Fluticasone Propionate 100 MCG BLST.W.DEV 2 PUFF INHALE ×2 (09:15→20:12)
[2021-05-15] MEDS: Benztropine Mesylate 1 MG TABLET PO ×2 (09:15→20:12)
[2021-05-15] MEDS: Naltrexone HCl 50 MG TABLET PO (09:15)
[2021-05-15] MEDS: Nicotine 21 MG PATCH.TD24 TRANSDERMA (09:15)
[2021-05-15] MEDS: Ferrous Sulfate 324 MG TABLET.DR PO (09:16)
[2021-05-15] MEDS: Omeprazole 20 MG CAPSULE.DR PO ×2 (09:16→20:12)
[2021-05-15 09:49] VITALS: BP 104/70; PULSE 94
[2021-05-15] MEDS: Acetaminophen 325 MG TABLET 650 MG PO (11:53)
--- NOTE | 2021-05-15 13:53 | P.PNPSI_ITS ---
Subjective Subjective Date of Service: 05/15/21 Reason For Visit: SI Interim History: Pt seen and DW team. She reports symptoms unchanged. Denies SI today. She attended group and says I stayed for the whole group . She reports she is utilizing her coping skills when has intermittent suicidal thoughts along with urges to engage in self injurious behaviors. She is able to be redirected by staff when seen doing it. Review of Systems Review of Systems Constitutional: No Fever, No Chills ENT/Mouth: No sore throat, No Rhinorrhea, No Swallowing Difficulty Cardiovascular: No Chest Pain, No SOB, No Orthopnea, No Edema Respiratory: No Cough, No Sputum, No Wheezing, No dyspnea Gastrointestinal: No Nausea, No Vomiting, No Diarrhea, No abdominal Pain Genitourinary: No Dysuria, No Urinary Frequency, No Hematuria Musculoskeletal: No joint pain, No Myalgias Skin: + Skin Lesions, No rash Neuro: No Weakness, No Numbness, No Dizziness, + Headache Psych: + Anxiety/Panic, + Depression, +AH, No VH, +SI Heme/Lymph: No Bruising, No Lymphadenopathy Endocrine: No Polyuria, No Polydipsia Mental Status Exam Mental Status Exam Narrative: appropriately dressed and groomed. no PMA/PMR. cooperative with interview. speech soft, nml rate, amount, latency. decreased prosody. thoughts linear and logical. affect constricted, normo-intense, non-labile. mood still bad. but a little bit better. Some SI and occasional AH but with no intent of harm to self and able to control self. Diagnostics Vital Signs (24Hr): Vital Signs - 24 hr 05/14/21 21:54 05/14/21 21:59 05/14/21 22:01 Temperature 97.9 F Pulse Rate 90 90 90 Respiratory Rate 18 Blood Pressure 126/78 126/78 126/78 Pulse Oximetry 96 05/15/21 06:00 05/15/21 09:49 Temperature 98.3 F Pulse Rate 80 94 Respiratory Rate 18 Blood Pressure 101/59 L 104/70 Pulse Oximetry 95 Body Mass Index 36.6 Labs Labs: Laboratory Results - last 48 hr 05/14/21 05/15/21 07:37 06:33 POC Glucose 105 104 Medications Medications Current Medications Generic Name Dose Route Start Last Admin Trade Name Freq PRN Reason Stop Dose Admin Acetaminophen 650 mg 05/10/21 16:07 05/15/21 11:53 Acetaminophen 325 Mg Tablet PO 650 mg Q6H PRN Administration Headache/Pain Mild Scale (1-3) Al Hydroxide/Mg Hydroxide 30 ml 05/10/21 16:07 Magnesium Hydrox/Alum Hydrox 30 Ml Oral.Susp PO Q6H PRN Heartburn/Nausea Albuterol Sulfate 2 puff 05/09/21 19:48 05/13/21 11:42 Albuterol Sulfate 90 Mcg 8 Gm Inhaler INHALE 2 puff RQ4H PRN Administration Shortness Of Breath Atorvastatin Calcium 10 mg 05/09/21 21:00 05/14/21 21:59 Atorvastatin Calcium 10 Mg Tablet PO 10 mg BEDTIME YULY Administration Benztropine Mesylate 1 mg 05/09/21 21:00 05/15/21 09:15 Benztropine Mesylate 1 Mg Tablet PO 1 mg BID YULY Administration Chlorpromazine HCl 50 mg 05/10/21 19:39 05/14/21 01:39 Chlorpromazine Hcl 25 Mg Tablet PO 50 mg QID PRN Administration Psychosis Clotrimazole 1 appl 05/09/21 21:00 05/15/21 09:52 Clotrimazole 1 % Cream 15 Gm Tube TOPICAL Not Given BID [facility] Protocol Doxazosin Mesylate 4 mg 05/12/21 21:00 05/14/21 22:01 Doxazosin Mesylate 2 Mg Tablet PO 4 mg BEDTIME YULY Administration Protocol Ferrous Sulfate 324 mg 05/10/21 09:00 05/15/21 09:16 Ferrous Sulfate 324 Mg Tablet. PO 324 mg DAILY YULY Administration Fluticasone Propionate 2 puff 05/09/21 20:30 05/15/21 09:15 Fluticasone Propionate 100 Mcg Blst.W.Dev INHALE 2 puff RBID YULY Administration Haloperidol 3 mg 05/09/21 21:00 05/15/21 09:15 Haloperidol 1 Mg Tablet PO 3 mg TID YULY Administration Haloperidol Decanoate 100 mg 05/15/21 20:00 Haloperidol Decanoate 50 Mg/Ml Ampul IM Q28D [facility] Lisinopril 5 mg 05/10/21 09:00 05/15/21 09:49 Lisinopril 5 Mg Tablet PO 5 mg DAILY YULY Administration Protocol Magnesium Hydroxide 30 ml 05/10/21 16:07 05/13/21 13:51 Milk Of Magnesia 30 Ml Oral.Susp PO 30 ml DAILY PRN Administration Constipation Metformin HCl 500 mg 05/09/21 20:00 05/15/21 09:15 Metformin Hcl 500 Mg Tablet PO 500 mg BID@0900,1700 YULY Administration Montelukast Sodium 10 mg 05/09/21 21:00 05/14/21 22:00 Montelukast Sodium 10 Mg Tablet PO 10 mg BEDTIME YULY Administration Naltrexone HCl 50 mg 05/10/21 09:00 05/15/21 09:15 Naltrexone Hcl 50 Mg Tablet PO 50 mg DAILY YULY Administration Nicotine 21 mg 05/10/21 09:00 05/15/21 09:15 Nicotine 21 Mg Patch.Td24 TRANSDERMA 21 mg DAILY YULY Administration Nicotine Polacrilex 2 mg 05/09/21 19:48 Nicotine Polacrilex Lozenge 2 Mg Lozenge BUCCAL Q2H PRN Nicotine Cravings Omeprazole 20 mg 05/09/21 21:00 05/15/21 09:16 Omeprazole 20 Mg Capsule.Dr PO 20 mg BID YULY Administration Polyethylene Glycol 17 gm 05/09/21 19:48 05/14/21 08:16 Polyethylene Glycol 3350 17 Gm Powd.Pack PO 17 gm DAILY PRN Administration Constipation Trazodone HCl 150 mg 05/09/21 21:00 05/14/21 22:00 Trazodone Hcl 50 Mg Tablet PO 150 mg BEDTIME YULY Administration Verapamil HCl 240 mg 05/09/21 21:00 05/14/21 21:59 Verapamil Hcl Sr 240 Mg Tablet.Er PO 240 mg BEDTIME YULY Administration Protocol Allergies Allergies Allergy/AdvReac Type Severity Reaction Status Date / Time Fish Containing Products Allergy Severe ANAPHYLAXIS Verified 04/20/21 17:39 codeine [Codeine] Allergy Unknown RASH Verified 04/20/21 17:39 Penicillins Allergy Unknown RASH Verified 04/20/21 17:39 prednisone [Prednisone] Allergy Unknown RASH Verified 04/20/21 17:39 Sulfa (Sulfonamide Allergy Unknown RASH Verified 04/20/21 17:39 Antibiotics) [Sulfa (Sulfonamides)] azithromycin [AZITHROMYCIN] AdvReac Severe RASH Verified 04/20/21 17:39 nicotine AdvReac Unknown HEART Verified 04/20/21 17:39 PALPITATION TO NICOTINE GUM Seafood Allergy Severe ANAPHYLAXIS Uncoded 07/01/20 16:44 From Geodon Allergy Unknown DYSURIA, Uncoded 07/01/20 16:44 RASH Assessment & Plan Assessment & Plan (1) Borderline personality disorder: Status: Acute Code(s): F60.3 - Borderline personality disorder Assessment and Plan: Continue plan per primary treatment team: shoot for a short hospitalization, support pt in engaging in outpt treatment. keep safe while hospitalized, reduce opportunities for self-harm. T/C residential DBT program. (2) PTSD (post-traumatic stress disorder): Status: Acute Code(s): F43.10 - Post-traumatic stress disorder, unspecified Assessment and Plan: maintain safety on unit, which is hopefully a less triggering environment than her senior living currently. discharge back to senior living once stable. thorazine PRNs available. increased doxazosin from 3 mg QHS to 4 mg QHS as of 05/12 to target nightmares and insomnia. otherwise kept home meds as per prior. Greater than 50% of the session was spent on counseling and/or coordination of care Reason for contiued inpatient stay Substantial Risk for: harm to self
[2021-05-15] MEDS: chlorproMAZINE HCl 25 MG TABLET 50 MG PO (15:00)
[2021-05-15] MEDS: Albuterol Sulfate 90 MCG 8 GM INHALER 2 PUFF INHALE (19:24)
[2021-05-15 20:12] VITALS: BP 131/76; PULSE 91
[2021-05-15] MEDS: VerapamiL HCL SR 240 MG TABLET.ER PO (20:12)
[2021-05-15] MEDS: Atorvastatin Calcium 10 MG TABLET PO (20:12)
[2021-05-15] MEDS: Montelukast Sodium 10 MG TABLET PO (20:12)
[2021-05-15] MEDS: traZODone HCL 50 MG TABLET 150 MG PO (20:12)
[2021-05-15] MEDS: Doxazosin Mesylate 2 MG TABLET 4 MG PO (20:12)
[2021-05-15 20:16] VITALS: TEMP 36.7; O2SAT 96
[2021-05-16 06:00] VITALS: BP 120/57; PULSE 93; O2SAT 94
[2021-05-16 06:39] LABS: Glucose, Whole Blood 102 mg/dL (60-115)
[2021-05-16] MEDS: metFORMIN HCl 500 MG TABLET PO ×2 (08:04→17:18)
[2021-05-16] MEDS: Omeprazole 20 MG CAPSULE.DR PO ×2 (08:04→20:25)
[2021-05-16] MEDS: Naltrexone HCl 50 MG TABLET PO (08:04)
[2021-05-16] MEDS: HaloperidoL 1 MG TABLET 3 MG PO ×3 (08:04→20:25)
[2021-05-16] MEDS: Ferrous Sulfate 324 MG TABLET.DR PO (08:04)
[2021-05-16] MEDS: Benztropine Mesylate 1 MG TABLET PO ×2 (08:04→20:25)
[2021-05-16] MEDS: Fluticasone Propionate 100 MCG BLST.W.DEV 2 PUFF INHALE ×2 (08:09→20:26)
[2021-05-16] MEDS: Nicotine 21 MG PATCH.TD24 TRANSDERMA (08:18)
[2021-05-16 08:49] LABS: Creatinine Clr Calc Pharmacy 119.6; Estimated Glomerular Filt Rate > 60
[2021-05-16 08:56] LABS: Glucose, Whole Blood 112 mg/dL (60-115)
[2021-05-16] MEDS: chlorproMAZINE HCl 25 MG TABLET 50 MG PO (09:11)
--- NOTE | 2021-05-16 12:26 | HO.PSYCHPN ---
Subjective Subjective Date of Service: 05/16/21 Reason For Visit: SI Interim History: pt found resting in bed mid-morning. reports she took some thorazine earlier in the day so was napping. easily rousable. asks if she can DC to nursing home tomorrow. has MD read her WRAP booklet. no other complaints or requests. reports intermittent CAH to harm self from father, VH of father. Mental Status Exam Mental Status Exam Narrative: appropriately dressed and groomed. no PMA/PMR. cooperative with interview. speech soft, nml rate, amount, latency. decreased prosody. thoughts linear and logical. affect more flexible, normo-intense, non-labile. no SI/HI expressed. intermittent CAH to harm self and VH of father. Diagnostics Vital Signs (24Hr): Vital Signs - 24 hr 05/15/21 20:12 05/15/21 20:16 05/16/21 06:00 Temperature 98.0 F Pulse Rate 91 93 Blood Pressure 131/76 120/57 L Pulse Oximetry 96 94 Body Mass Index 36.6 Labs Results: 05/16/21 08:08 Labs: Laboratory Results - last 48 hr 05/15/21 05/16/21 05/16/21 06:33 06:26 08:08 Creatinine 0.71 Estim Creat Clear Calc 119.6 Estimated GFR > 60 POC Glucose 104 102 05/16/21 08:52 Creatinine Estim Creat Clear Calc Estimated GFR POC Glucose 112 Medications Medications Current Medications Generic Name Dose Route Start Last Admin Trade Name Freq PRN Reason Stop Dose Admin Acetaminophen 650 mg 05/10/21 16:07 05/15/21 11:53 Acetaminophen 325 Mg Tablet PO 650 mg Q6H PRN Administration Headache/Pain Mild Scale (1-3) Al Hydroxide/Mg Hydroxide 30 ml 05/10/21 16:07 Magnesium Hydrox/Alum Hydrox 30 Ml Oral.Susp PO Q6H PRN Heartburn/Nausea Albuterol Sulfate 2 puff 05/09/21 19:48 05/15/21 19:24 Albuterol Sulfate 90 Mcg 8 Gm Inhaler INHALE 2 puff RQ4H PRN Administration Shortness Of Breath Atorvastatin Calcium 10 mg 05/09/21 21:00 05/15/21 20:12 Atorvastatin Calcium 10 Mg Tablet PO 10 mg BEDTIME YULY Administration Benztropine Mesylate 1 mg 05/09/21 21:00 05/16/21 08:04 Benztropine Mesylate 1 Mg Tablet PO 1 mg BID YULY Administration Chlorpromazine HCl 50 mg 05/10/21 19:39 05/16/21 09:11 Chlorpromazine Hcl 25 Mg Tablet PO 50 mg QID PRN Administration Psychosis Clotrimazole 1 appl 05/09/21 21:00 05/16/21 08:16 Clotrimazole 1 % Cream 15 Gm Tube TOPICAL Not Given BID YULY Protocol Doxazosin Mesylate 4 mg 05/12/21 21:00 05/15/21 20:12 Doxazosin Mesylate 2 Mg Tablet PO 4 mg BEDTIME YULY Administration Protocol Ferrous Sulfate 324 mg 05/10/21 09:00 05/16/21 08:04 Ferrous Sulfate 324 Mg Tablet.Dr PO 324 mg DAILY YULY Administration Fluticasone Propionate 2 puff 05/09/21 20:30 05/16/21 08:09 Fluticasone Propionate 100 Mcg Blst.W.Dev INHALE 2 puff RBID YULY Administration Haloperidol 3 mg 05/09/21 21:00 05/16/21 08:04 Haloperidol 1 Mg Tablet PO 3 mg TID YULY Administration Haloperidol Decanoate 100 mg 05/15/21 20:00 Haloperidol Decanoate 50 Mg/Ml Ampul IM Q28D YULY Lisinopril 5 mg 05/10/21 09:00 05/16/21 08:10 Lisinopril 5 Mg Tablet PO 5 mg DAILY YULY Administration Protocol Magnesium Hydroxide 30 ml 05/10/21 16:07 05/13/21 13:51 Milk Of Magnesia 30 Ml Oral.Susp PO 30 ml DAILY PRN Administration Constipation Metformin HCl 500 mg 05/09/21 20:00 05/16/21 08:04 Metformin Hcl 500 Mg Tablet PO 500 mg BID@0900,1700 YULY Administration Montelukast Sodium 10 mg 05/09/21 21:00 05/15/21 20:12 Montelukast Sodium 10 Mg Tablet PO 10 mg BEDTIME YULY Administration Naltrexone HCl 50 mg 05/10/21 09:00 05/16/21 08:04 Naltrexone Hcl 50 Mg Tablet PO 50 mg DAILY YULY Administration Nicotine 21 mg 05/10/21 09:00 05/16/21 08:18 Nicotine 21 Mg Patch.Td24 TRANSDERMA 21 mg DAILY YULY Administration Nicotine Polacrilex 2 mg 05/09/21 19:48 Nicotine Polacrilex Lozenge 2 Mg Lozenge BUCCAL Q2H PRN Nicotine Cravings Omeprazole 20 mg 05/09/21 21:00 05/16/21 08:04 Omeprazole 20 Mg Capsule. PO 20 mg BID YULY Administration Polyethylene Glycol 17 gm 05/09/21 19:48 05/16/21 08:09 Polyethylene Glycol 3350 17 Gm Powd.Pack PO 17 gm DAILY PRN Administration Constipation Trazodone HCl 150 mg 05/09/21 21:00 05/15/21 20:12 Trazodone Hcl 50 Mg Tablet PO 150 mg BEDTIME YULY Administration Verapamil HCl 240 mg 05/09/21 21:00 05/15/21 20:12 Verapamil Hcl Sr 240 Mg Tablet.Er PO 240 mg BEDTIME YULY Administration Protocol Allergies Allergies Allergy/AdvReac Type Severity Reaction Status Date / Time Fish Containing Products Allergy Severe ANAPHYLAXIS Verified 04/20/21 17:39 codeine [Codeine] Allergy Unknown RASH Verified 04/20/21 17:39 Penicillins Allergy Unknown RASH Verified 04/20/21 17:39 prednisone [Prednisone] Allergy Unknown RASH Verified 04/20/21 17:39 Sulfa (Sulfonamide Allergy Unknown RASH Verified 04/20/21 17:39 Antibiotics) [Sulfa (Sulfonamides)] azithromycin [AZITHROMYCIN] AdvReac Severe RASH Verified 04/20/21 17:39 nicotine AdvReac Unknown HEART Verified 04/20/21 17:39 PALPITATION TO NICOTINE GUM Seafood Allergy Severe ANAPHYLAXIS Uncoded 07/01/20 16:44 From Geodon Allergy Unknown DYSURIA, Uncoded 07/01/20 16:44 RASH Assessment & Plan Assessment & Plan (1) Borderline personality disorder: Status: Acute Code(s): F60.3 - Borderline personality disorder Assessment and Plan: Continue plan per primary treatment team: shoot for a short hospitalization, support pt in engaging in outpt treatment. keep safe while hospitalized, reduce opportunities for self-harm. T/C residential DBT program. (2) PTSD (post-traumatic stress disorder): Status: Acute Code(s): F43.10 - Post-traumatic stress disorder, unspecified Assessment and Plan: maintain safety on unit, which is hopefully a less triggering environment than her nursing home currently. discharge back to nursing home once stable. thorazine PRNs available. increased doxazosin from 3 mg QHS to 4 mg QHS as of 05/12 to target nightmares and insomnia. otherwise kept home meds as per prior. Greater than 50% of the session was spent on counseling and/or coordination of care Reason for contiued inpatient stay Substantial Risk for: harm to self, inability to function and rapid decompensation
[2021-05-16] MEDS: Clotrimazole 1 % Cream 15 GM TUBE 1 APPL TOPICAL (20:03)
[2021-05-16 20:25] VITALS: BP 129/89; PULSE 84
[2021-05-16] MEDS: Montelukast Sodium 10 MG TABLET PO (20:25)
[2021-05-16] MEDS: traZODone HCL 50 MG TABLET 150 MG PO (20:25)
[2021-05-16] MEDS: VerapamiL HCL SR 240 MG TABLET.ER PO (20:25)
[2021-05-16] MEDS: Atorvastatin Calcium 10 MG TABLET PO (20:25)
[2021-05-16 20:26] VITALS: BP 129/89; PULSE 84
[2021-05-16] MEDS: Doxazosin Mesylate 2 MG TABLET 4 MG PO (20:26)
[2021-05-16 21:27] VITALS: TEMP 36.4; O2SAT 95
[2021-05-17 06:23] LABS: Glucose, Whole Blood 100 mg/dL (60-115)
[2021-05-17 08:31] VITALS: BP 120/76; PULSE 90
[2021-05-17] MEDS: Ferrous Sulfate 324 MG TABLET.DR PO (08:31)
[2021-05-17] MEDS: Omeprazole 20 MG CAPSULE.DR PO (08:31)
[2021-05-17] MEDS: HaloperidoL 1 MG TABLET 3 MG PO (08:31)
[2021-05-17] MEDS: Naltrexone HCl 50 MG TABLET PO (08:31)
[2021-05-17] MEDS: Benztropine Mesylate 1 MG TABLET PO (08:31)
[2021-05-17] MEDS: metFORMIN HCl 500 MG TABLET PO (08:31)
[2021-05-17 08:50] VITALS: BP 120/76; PULSE 90; RESP 17; TEMP 36.2; O2SAT 96
--- NOTE | 2021-05-17 11:46 | PM.PSYDC ---
DS: Providers Provider Date of Service: 05/17/21 Date of admission: 05/10/21 12:42 Primary care physician: Michelle Norris MD DS: Diagnosis Discharge Diagnosis (1) Borderline personality disorder: Status: Acute (2) PTSD (post-traumatic stress disorder): Status: Acute DS: Medications Discharge Medications Home Medications: Home Medications Medication Instructions Recorded Confirmed atorvastatin 10 mg tablet 10 mg PO BEDTIME 01/27/21 05/09/21 fluticasone propionate 110 2 puff INHALATION BID 01/27/21 05/09/21 mcg/actuation HFA aerosol inhaler (Flovent HFA) lisinopril 5 mg tablet 5 mg PO DAILY 01/27/21 05/09/21 metformin 500 mg tablet 500 mg PO BID@0900,1700 01/27/21 05/09/21 montelukast 10 mg tablet 10 mg PO BEDTIME 01/27/21 05/09/21 trazodone 150 mg tablet 150 mg PO BEDTIME 01/27/21 05/09/21 verapamil 240 mg tablet,extended 240 mg PO BEDTIME 01/27/21 05/09/21 release ferrous sulfate 325 mg (65 mg 325 mg PO DAILY 02/12/21 05/09/21 iron) tablet,delayed release pantoprazole 40 mg tablet,delayed 40 mg PO BID 02/12/21 05/09/21 release (Protonix) polyethylene glycol 3350 17 gram 17 g PO DAILY PRN 02/12/21 05/09/21 oral powder packet (Miralax) chlorpromazine 50 mg tablet 50 mg PO DAILY PRN 05/02/21 05/09/21 clotrimazole 1 % topical cream 1 applic TOPICAL BID 05/02/21 05/09/21 nicotine (polacrilex) 2 mg buccal 2 mg BUCCAL Q2H PRN 05/02/21 05/09/21 lozenge Previous Rx's Medication Instructions Recorded albuterol sulfate 90 mcg/actuation 2 puff INHALATION RQ4H PRN #6.7 g 03/23/21 aerosol inhaler (Ventolin HFA) benztropine 1 mg tablet 1 mg PO BID #30 tab 03/23/21 haloperidol decanoate 50 mg/mL 100 mg IM Q28D #1 ml 03/23/21 intramuscular solution naltrexone 50 mg tablet 50 mg PO DAILY #30 tab 03/23/21 haloperidol 1 mg tablet 3 mg PO TID 30 Days #270 tab 04/04/21 nicotine 21 mg/24 hr daily 21 mg TRANSDERMAL DAILY 28 Days 05/05/21 transdermal patch #28 ea doxazosin 2 mg tablet 4 mg PO BEDTIME 30 Days #60 tab 05/17/21 Mental Status Exam Mental Status Exam Narrative: appropriately dressed and groomed. no PMA/PMR. cooperative with interview. speech soft, nml rate, amount, latency. decreased prosody. thoughts linear and logical. affect more flexible, normo-intense, non-labile. mood good. no SI/SIBI/HI/AVH. Data Data Completed and Pending Completed studies during hospitalization [Text1]: 05/12/21 05/13/21 05/14/21 06:27 06:13 07:37 Creatinine Estim Creat Clear Calc Estimated GFR POC Glucose 124 H 124 H 105 05/15/21 05/16/21 05/16/21 06:33 06:26 08:08 Creatinine 0.71 Estim Creat Clear Calc 119.6 Estimated GFR > 60 POC Glucose 104 102 05/16/21 05/17/21 08:52 06:19 Creatinine Estim Creat Clear Calc Estimated GFR POC Glucose 112 100 05/09/21 Unknown Urine clean catch - Urine sanchez top Urine Culture - Final No growth. DS: Summary Hospital Course Hospital Course: per Beni LE 05/11 H&P: pt reports some friction with a peer at her detention; per crisis eval, peer had been talking about her behind her back with statements that mirror her AH and peer also began ignoring pt.? per RN report, peer had called pt worthless. ? the conflict triggered SI, with pt having thoughts of self-immolation.? she called 911 and was brought to the hospital.on interview with pt reports CAH to self-immolate.? the states the most recent time she heard such CAH was sunday.? the later changes it to Sunday.? she states that now the CAH are to hurt herself, not to kill herself.? she denies SI currently but does endorse SIBI, stating the CAH to harm herself are ego-syntonic.? she is considering banging her head or scratching/cutting herself.? she reports she has coping strategies of seeking out staff contact and taking PRNs to go to sleep.? she reports having done DBT programs a? long time ago. ? she has never done a residential DBT program. Past Psychiatric History: numerous psychiatric admissions, severe suicide attempts, and sever SIB including cutting and head banging.? BPD.? trauma Hx.? resides at [facility]. per Beni LE 05/12 Progress Note: pt was found lying in her bed for a nap late morning.? she was amenable to come to interview room for discussion.? she stated she did not like the new plan of staff's not spending a lot of 1:1 time with her.? explained the rationale, to support her independence in managing difficult emotions and impulses on her own.? pt replied that there are staff at her detention that she does things with often, such as watching TV or playing games.? she reported she had nightmares last night, of her father.? there is nothing that happens in the day which might predict them.? she is agreeable to increase doxazosin to 4 mg at HS to address the nightmares.? no other requests or complaints.? per staff, some mild head-banging last night. per Latrice STARR 05/13 Progress Note: Pt reports she continues to have intermittent suicidal thoughts along with urges to engage in self injurious behaviors such as head bandging- which she is able to be redirected by staff when seen doing it. However, these are chronic. She reports liking her job a lot, feeling unsafe at home when she has intrusive thoughts of wanting to hurt herself or suicidal ideation. Today, asking to go home soon. Does admit that multiple admission through out the year not much therapeutic benefit. No behavioral concerns. visible in unit, attending groups. per MD Ervin 05/15 Progress Note: Pt seen and DW team. She reports symptoms unchanged. Denies SI today. She attended group and says I stayed for the whole group . She reports she is utilizing her coping skills when has intermittent suicidal thoughts along with urges to engage in self injurious behaviors. She is able to be redirected by staff when seen doing it. per Beni LE 05/16 Progress Note: pt found resting in bed mid-morning.? reports she took some thorazine earlier in the day so was napping.? easily rousable.? asks if she can DC to detention tomorrow.? has MD read her WRAP booklet.? no other complaints or requests.? reports intermittent CAH to harm self from father, VH of father. 05/17: pt continues to desire discharge, denies SI/HI/AVH or SIBI. mood good. detention staff coming today to pick her up. per staff, AVH yesterday but using coping skills effectively. Time Spent with Patient Time attestation: Total time spent providing and/or coordinating discharge services: Discharge Plan Discharge Patient Disposition: Home, Self-Care Discharge Diagnosis: Borderline Personality Disorder Referrals: Dylan Calderón (psychiatrist) [Other] - 05/26/21 11:00 am (Telehealth appointment) Nina (therapist) [Other] - 05/18/21 1:35 pm (Telehealth appointment) Michelle Norris MD [Primary Care Provider] - 1 Week Discharge Medications: New doxazosin 2 mg Tablet 4 mg PO BEDTIME 30 Days Qty: 60 RF: 0 Continued metformin 500 mg tablet 500 mg PO BID@0900,1700 RF: 0 atorvastatin 10 mg tablet 10 mg PO BEDTIME RF: 0 trazodone 150 mg tablet 150 mg PO BEDTIME RF: 0 verapamil 240 mg tablet extended release 240 mg PO BEDTIME RF: 0 montelukast 10 mg tablet 10 mg PO BEDTIME RF: 0 lisinopril 5 mg tablet 5 mg PO DAILY RF: 0 Flovent HFA 110 mcg/actuation HFA aerosol inhaler 2 puff inhalation BID RF: 0 polyethylene glycol 3350 [Miralax] 17 gram Powder In Packet 17 g PO DAILY PRN (Reason: Constipation) RF: 0 pantoprazole [Protonix] 40 mg Tablet,Delayed Release (Dr/Ec) 40 mg PO BID RF: 0 ferrous sulfate 325 mg (65 mg iron) tablet,delayed release (DR/EC) 325 mg PO DAILY RF: 0 albuterol sulfate [Ventolin HFA] 90 mcg/actuation Hfa Aerosol Inhaler 2 puff inhalation RQ4H PRN (Reason: Shortness Of Breath) Qty: 6.7 RF: 0 naltrexone 50 mg Tablet 50 mg PO DAILY Qty: 30 RF: 0 benztropine 1 mg Tablet 1 mg PO BID Qty: 30 RF: 0 haloperidol decanoate 50 mg/mL Solution 100 mg IM Q28D Qty: 1 RF: 0 clotrimazole 1 % cream 1 applic topical BID RF: 0 chlorpromazine 50 mg Tablet 50 mg PO DAILY PRN (Reason: Psychosis) RF: 0 nicotine (polacrilex) 2 mg Lozenge 2 mg BUCCAL Q2H PRN (Reason: Nicotine Cravings) RF: 0 nicotine 21 mg/24 hr Patch 24 Hour 21 mg transdermal DAILY 28 Days Qty: 28 RF: 0 haloperidol 1 mg Tablet 3 mg PO TID 30 Days Qty: 270 RF: 0 Discontinued doxazosin 1 mg tablet 3 mg PO BEDTIME RF: 0 Discharge Orders: Discharge Order (Routine); Ordered 05/17/21 Ordered By: Robby Bazan Diet: diabetic diet Activity on Discharge: As tolerated Stand Alone Forms: Patient Portal Discharge page Care Plan Goals: maintain independent living in the community with support of detention and outpatient treaters. refrain from self-harm behaviors. Health Concerns: Impaired fasting glucose hypertension Plan of Treatment: continue to take medications as prescribed. continue to attend appointments as scheduled. focus on developing and implementing coping skills. Assessment: not at imminent risk of harm to self or others currently, requesting discharge from the hospital. Discharge Date/Time: 05/17/21 13:12
== END 2021-05-17 13:12 | disposition home or self-care (01) | DRG 883 ==
LOC: HO.ED 22:07 → HO.PADLT16 05-10 12:43
PROVIDERS: Physician Assistant; Admitting Provider Psychiatry & Neurology Psychiatry; Emergency Provider Emergency Medicine; PCP Internal Medicine; Visit Provider Psychiatry & Neurology Psychiatry
DX: F60.3 Borderline personality disorder (principal); R45.851 Suicidal ideations; F43.10 Post-traumatic stress disorder, unspecified; F17.210 Nicotine dependence, cigarettes, uncomplicated; Z71.6 Tobacco abuse counseling; Z20.822 Contact with and (suspected) exposure to COVID-19; Z88.0 Allergy status to penicillin; Z88.2 Allergy status to sulfonamides; Z79.84 Long term (current) use of oral hypoglycemic drugs; Z79.899 Other long term (current) drug therapy
CPT/HCPCS: 36415; 80053; 80143; 80179; 80307; 81001; 81003; 81025; 82077; 82565; 82947; 85025; 87086; 87635; 93005; 99232; 99284; 99285

== ENCOUNTER 2021-05-29 02:51 | Emergency (ER) | payer MEDICARE, MEDICAID, SELFPAY ==
[2021-05-29 02:52] VITALS: BP 127/90; PULSE 92; RESP 16; TEMP 36.3; O2SAT 97; BMI 36.0
[2021-05-29 03:23] LABS: COVID-19 Test Negative (Negative); IDNOW Serial# 9DD0AD1C
--- NOTE | 2021-05-29 05:35 | PC.NURSE ---
Patient has been sleeping since she came, no distress observed/reported, endorses command auditory hallucination, patient is yet to be seen by the provider, N referral completed via smart-sheet, N called and spoke with Nallely confirmed receipt of referral, med rec completed/awaiting provider's approval, VSS, will continue to monitor.
--- NOTE | 2021-05-29 07:04 | PC.NURSE ---
patient appears to remaiun asleep at present, respirations are even and unlabored patient appears in no distress
--- NOTE | 2021-05-29 07:10 | ED_ITS ---
HPI - Psych General Chief Complaint: Psychiatric Symptoms Stated Complaint: crisis Time Seen by Provider: 05/29/21 07:10 Source: patient Mode of arrival: EMS History of Present Illness HPI Narrative: 45-year-old female complaints voices telling her to hurt herself. Patient states that she became anxious after waking up from nightmares where she heard her father's voice telling her to hurt herself and patient started using a razor and states that she cut herself on her abdomen Related Data Home Medications Medication Instructions Recorded Confirmed trazodone 150 mg tablet 150 mg PO BEDTIME 01/27/21 05/29/21 polyethylene glycol 3350 17 gram 17 g PO DAILY PRN 02/12/21 05/29/21 oral powder packet (Miralax) chlorpromazine 50 mg tablet 50 mg PO DAILY PRN 05/02/21 05/29/21 nicotine (polacrilex) 2 mg buccal 2 mg BUCCAL Q2H PRN 05/02/21 05/29/21 lozenge atorvastatin 10 mg tablet 1 tab PO DAILY 05/29/21 05/29/21 benztropine 1 mg tablet 1 tab PO BID 05/29/21 05/29/21 doxazosin 1 mg tablet 4 mg PO BEDTIME 05/29/21 05/29/21 ferrous sulfate 325 mg (65 mg 1 tab PO DAILY 05/29/21 05/29/21 iron) tablet,delayed release fluticasone propionate 110 2 puff INHALATION BID 05/29/21 05/29/21 mcg/actuation HFA aerosol inhaler (Flovent HFA) haloperidol 1 mg tablet 3 tab PO TID 05/29/21 05/29/21 lisinopril 5 mg tablet 1 tab PO DAILY 05/29/21 05/29/21 metformin 500 mg tablet 1 tab PO BID 05/29/21 05/29/21 montelukast 10 mg tablet 1 tab PO DAILY 05/29/21 05/29/21 naltrexone 50 mg tablet 1 tab PO DAILY 05/29/21 05/29/21 norethindrone (contraceptive) 0.35 0.35 mg PO DAILY 05/29/21 05/29/21 mg tablet (Deblitane) pantoprazole 40 mg tablet,delayed 1 tab PO BID 05/29/21 05/29/21 release verapamil 240 mg tablet,extended 1 tab PO BEDTIME 05/29/21 05/29/21 release Previous Rx's Medication Instructions Recorded albuterol sulfate 90 mcg/actuation 2 puff INHALATION RQ4H PRN #6.7 g 03/23/21 aerosol inhaler (Ventolin HFA) nicotine 21 mg/24 hr daily 21 mg TRANSDERMAL DAILY 28 Days 05/05/21 transdermal patch #28 ea Allergies Allergy/AdvReac Type Severity Reaction Status Date / Time Fish Containing Products Allergy Severe ANAPHYLAXIS Verified 04/20/21 17:39 codeine [Codeine] Allergy Unknown RASH Verified 04/20/21 17:39 Penicillins Allergy Unknown RASH Verified 04/20/21 17:39 prednisone [Prednisone] Allergy Unknown RASH Verified 04/20/21 17:39 Sulfa (Sulfonamide Allergy Unknown RASH Verified 04/20/21 17:39 Antibiotics) [Sulfa (Sulfonamides)] azithromycin [AZITHROMYCIN] AdvReac Severe RASH Verified 04/20/21 17:39 nicotine AdvReac Unknown HEART Verified 04/20/21 17:39 PALPITATION TO NICOTINE GUM Seafood Allergy Severe ANAPHYLAXIS Uncoded 07/01/20 16:44 From Geodon Allergy Unknown DYSURIA, Uncoded 07/01/20 16:44 RASH PMFSH Past Medical History Medical History Bronchitis GERD (gastroesophageal reflux disease) Hyperlipidemia Mood disorder Overdose PTSD (post-traumatic stress disorder) Social History Social History 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: Other 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 Other:: Nursing Home Housing: Other Housing Other:: [facility] Do you presently have visiting nurse or other home services: No Alcohol intake: never Patient Tobacco Use Status: Current everyday Tobacco user Tobacco use type: Cigarette Cigarette Packs Per Day: 1 Cigarettes Per Day: 20.0 Years Smoked: 20 e-Cigarette/Vaping Use: Currently Using Second Hand Smoke Exposure: Yes Substance Use Type: Caffiene Advance Directives: No Advance Directives Information Provided: No Patient : No service: No Sexual orientation: Don't Know Physical Exam Vital Signs: Vital Signs: Last Vital Signs Temp 97.3 F 05/29/21 02:52 Pulse 92 05/29/21 02:52 Resp 16 05/29/21 02:52 BP 127/90 H 05/29/21 02:52 Pulse Ox 97 05/29/21 02:52 Body Mass Index 36.0 VITAL SIGNS: Reviewed. GENERAL: Well developed, well nourished, in no acute distress. HEAD: Normocephalic/atraumatic EYES: PERRLA, EOMI LUNGS: Normal breath sounds. No adventitious sounds or accessory muscle use. SpO2<97> CARDIOVASCULAR: Regular rate and rhythm without noted murmurs ABDOMEN: Obese, Soft, non-tender, non-distended with bowel sounds. SKIN: Inspection of the skin reveals no rashes, multiple superficial lacerations to abdominal wall/left forearm as well as left lower leg and all are hemostatic. NEUROLOGIC: Alert and oriented x 4. PSYCH: Depressed affect Course Course Course Narrative: This is a 45-year-old female with history and clinical presentation consistent with auditory hallucinations telling her to hurt herself but patient otherwise denies being suicidal. Patient is otherwise cleared for further evaluation by the behavioral team. Reevaluation(s) Reevaluation #1: Patient placed in physician observation because the patient needed more time for crisis evaluation. At the time observation was started the patient's vital signs were stable, patient is alert and oriented, neuro: Nonfocal, CV RRR, lungs clear Time: 07:56 MDM - Psych Lab Data Labs: Lab Results 05/29/21 Range/Units 03:01 COVID-19 (NICK) Negative (Negative) COVID-19 Clin Com See Note Discharge Plan Discharge Clinical Impression: Bipolar II disorder, Post traumatic stress disorder Prescriptions: No Action trazodone 150 mg tablet 150 mg PO BEDTIME RF: 0 polyethylene glycol 3350 [Miralax] 17 gram Powder In Packet 17 g PO DAILY PRN (Reason: Constipation) RF: 0 albuterol sulfate [Ventolin HFA] 90 mcg/actuation Hfa Aerosol Inhaler 2 puff inhalation RQ4H PRN (Reason: Shortness Of Breath) Qty: 6.7 RF: 0 chlorpromazine 50 mg Tablet 50 mg PO DAILY PRN (Reason: Psychosis) RF: 0 nicotine (polacrilex) 2 mg Lozenge 2 mg BUCCAL Q2H PRN (Reason: Nicotine Cravings) RF: 0 nicotine 21 mg/24 hr Patch 24 Hour 21 mg transdermal DAILY 28 Days Qty: 28 RF: 0 metformin 500 mg tablet 1 tab PO BID RF: 0 atorvastatin 10 mg tablet 1 tab PO DAILY RF: 0 doxazosin 1 mg tablet 4 mg PO BEDTIME RF: 0 naltrexone 50 mg tablet 1 tab PO DAILY RF: 0 haloperidol 1 mg tablet 3 tab PO TID RF: 0 pantoprazole 40 mg tablet,delayed release (DR/EC) 1 tab PO BID RF: 0 benztropine 1 mg tablet 1 tab PO BID RF: 0 verapamil 240 mg tablet extended release 1 tab PO BEDTIME RF: 0 montelukast 10 mg tablet 1 tab PO DAILY RF: 0 lisinopril 5 mg tablet 1 tab PO DAILY RF: 0 ferrous sulfate 325 mg (65 mg iron) tablet,delayed release (DR/EC) 1 tab PO DAILY RF: 0 Flovent HFA 110 mcg/actuation HFA aerosol inhaler 2 puff inhalation BID RF: 0 norethindrone (contraceptive) [Deblitane] 0.35 mg Tablet 0.35 mg PO DAILY RF: 0
== END 2021-05-29 13:15 | disposition home or self-care (01) ==
PROVIDERS: Emergency Provider Student in an Organized Health Care Education/Training Program
DX: F33.1 Major depressive disorder, recurrent, moderate (principal); R45.851 Suicidal ideations; F43.10 Post-traumatic stress disorder, unspecified; F17.210 Nicotine dependence, cigarettes, uncomplicated; Z20.822 Contact with and (suspected) exposure to COVID-19; Z79.899 Other long term (current) drug therapy; Z71.6 Tobacco abuse counseling
CPT/HCPCS: 36415; 87635; 99284

== ENCOUNTER 2021-06-14 17:35 | Emergency (ER) | payer MEDICARE, MEDICAID, SELFPAY ==
[2021-06-14 17:49] VITALS: BP 127/83; PULSE 105; RESP 18; TEMP 37.4; O2SAT 97; BMI 38.9
--- NOTE | 2021-06-14 17:54 | ED_ITS ---
HPI - General Adult General Chief complaint: Psychiatric Symptoms Stated complaint: crisis Time Seen by Provider: 06/14/21 17:46 Source: patient and EMS Mode of arrival: EMS Limitations: no limitations History of Present Illness HPI narrative: Patient comes emergency [place] from a [place] [facility] complaining of suicidal ideation. Patient states that she wants to overdose with Tylenol. Patient has no other complaints Related Data Home Medications Medication Instructions Recorded Confirmed trazodone 150 mg tablet 150 mg PO BEDTIME 01/27/21 05/29/21 polyethylene glycol 3350 17 gram 17 g PO DAILY PRN 02/12/21 05/29/21 oral powder packet (Miralax) chlorpromazine 50 mg tablet 50 mg PO DAILY PRN 05/02/21 05/29/21 nicotine (polacrilex) 2 mg buccal 2 mg BUCCAL Q2H PRN 05/02/21 05/29/21 lozenge atorvastatin 10 mg tablet 1 tab PO DAILY 05/29/21 05/29/21 benztropine 1 mg tablet 1 tab PO BID 05/29/21 05/29/21 doxazosin 1 mg tablet 4 mg PO BEDTIME 05/29/21 05/29/21 ferrous sulfate 325 mg (65 mg 1 tab PO DAILY 05/29/21 05/29/21 iron) tablet,delayed release fluticasone propionate 110 2 puff INHALATION BID 05/29/21 05/29/21 mcg/actuation HFA aerosol inhaler (Flovent HFA) haloperidol 1 mg tablet 3 tab PO TID 05/29/21 05/29/21 haloperidol decanoate 100 mg/mL 1 ml IM Q4W 05/29/21 05/29/21 intramuscular solution lisinopril 5 mg tablet 1 tab PO DAILY 05/29/21 05/29/21 metformin 500 mg tablet 1 tab PO BID 05/29/21 05/29/21 montelukast 10 mg tablet 1 tab PO DAILY 05/29/21 05/29/21 naltrexone 50 mg tablet 1 tab PO DAILY 05/29/21 05/29/21 norethindrone (contraceptive) 0.35 0.35 mg PO DAILY 05/29/21 05/29/21 mg tablet (Deblitane) pantoprazole 40 mg tablet,delayed 1 tab PO BID 05/29/21 05/29/21 release verapamil 240 mg tablet,extended 1 tab PO BEDTIME 05/29/21 05/29/21 release Previous Rx's Medication Instructions Recorded albuterol sulfate 90 mcg/actuation 2 puff INHALATION RQ4H PRN #6.7 g 03/23/21 aerosol inhaler (Ventolin HFA) nicotine 21 mg/24 hr daily 21 mg TRANSDERMAL DAILY 28 Days 05/05/21 transdermal patch #28 ea Allergies Allergy/AdvReac Type Severity Reaction Status Date / Time Fish Containing Products Allergy Severe ANAPHYLAXIS Verified 04/20/21 17:39 codeine [Codeine] Allergy Unknown RASH Verified 04/20/21 17:39 Penicillins Allergy Unknown RASH Verified 04/20/21 17:39 prednisone [Prednisone] Allergy Unknown RASH Verified 04/20/21 17:39 Sulfa (Sulfonamide Allergy Unknown RASH Verified 04/20/21 17:39 Antibiotics) [Sulfa (Sulfonamides)] azithromycin [AZITHROMYCIN] AdvReac Severe RASH Verified 04/20/21 17:39 nicotine AdvReac Unknown HEART Verified 04/20/21 17:39 PALPITATION TO NICOTINE GUM Seafood Allergy Severe ANAPHYLAXIS Uncoded 07/01/20 16:44 From Geodon Allergy Unknown DYSURIA, Uncoded 07/01/20 16:44 RASH Review of Systems Review of Systems: Constitutional : No Weight loss, No Fever, No Chills, No Night Sweats, No Fatigue, No Malaise ENT/Mouth : No Hearing loss, No Ear Pain, No Nasal Congestion, No Sinus Pain, No Hoarseness, No sore throat, No Rhinorrhea, No Swallowing Difficulty Eyes: No Eye Pain, No Swelling, No Redness, No Foreign Body, No Discharge, No Vision Changes Cardiovascular : No Chest Pain, No SOB, No Dyspnea on Exertion, No Orthopnea, No Edema, No Palpitations Respiratory : No Cough, No Sputum, No Wheezing, No Smoke Exposure, No Dyspnea Gastrointestinal : No Nausea, No Vomiting, No Diarrhea, No Constipation, No abdominal Pain, No Hematochezia, No Melena Genitourinary : no irregular bleeding, No Dysuria, No Urinary Frequency, No Hematuria, No Urinary Incontinence, No Urgency, No Flank Pain, No Urinary Flow Changes, No Hesitancy Musculoskeletal : No joint pain, No Myalgias, No Joint Swelling Skin : No Skin Lesions, No rash Neuro : No Weakness, No Numbness, No Paresthesias, No Loss of Consciousness, No Dizziness, No Headache Psych : Complain of anxiety, depression, suicidal ideation, no HI Heme/Lymph: No Bruising, No Bleeding,No Lymphadenopathy Endocrine : No Polyuria, No Polydipsia, No Temperature Intolerance [facility] Past Medical History Medical History Bronchitis GERD (gastroesophageal reflux disease) Hyperlipidemia Mood disorder Overdose PTSD (post-traumatic stress disorder) Social History Social History 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: Other 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 Other:: Skilled Nursing Housing: Other Housing Other:: [facility] Do you presently have visiting nurse or other home services: No Alcohol intake: never Patient Tobacco Use Status: Current everyday Tobacco user Tobacco use type: Cigarette Cigarette Packs Per Day: 1 Cigarettes Per Day: 20.0 Years Smoked: 20 e-Cigarette/Vaping Use: Currently Using Second Hand Smoke Exposure: Yes Substance Use Type: Caffiene Advance Directives: No Advance Directives Information Provided: No service: No Sexual orientation: Don't Know Physical Exam Vital Signs: Vital Signs: Last Vital Signs Temp 99.3 F 06/14/21 17:49 Pulse 105 H 06/14/21 17:49 Resp 18 06/14/21 17:49 BP 127/83 06/14/21 17:49 Pulse Ox 97 06/14/21 17:49 Body Mass Index 38.9 Const: Other: Appearance: Alert. Oriented X3. No acute distress. Eyes: Pupils equal, round and reactive to light. ENT: Pharynx normal. Neck: Normal inspection. Neck supple. No lymph nodes noted. No crepitus CVS: Normal heart rate and rhythm. Pulses normal. Normal S1 and S2 Respiratory: No respiratory distress. Breath sounds normal. No Wheezing. No rales Abdomen: Soft and nontender. No rigidity. No distention. good BS x4 Skin: Skin warm and dry. Normal skin color. Normal skin turgor. Extremities: No lower extremity edema. No lower extremity edema. No Lacerations. No Rash Neuro: Oriented X 3. No motor deficit. No sensory deficit. Moving all exte rmities. No slurred speech. Cranial nerves 2-12 grossly intact. Psych: Calm, cooperative Course Course Course Narrative: BHN in consult pending Physician observe patient started at 06:30. Vitals stable. Medical Decision Making Lab Data Labs: Lab Results 06/14/21 Range/Units 19:35 COVID-19 (NICK) Negative (Negative) COVID-19 Clin Com See Note Discharge Plan Discharge Clinical Impression: Suicidal ideation Prescriptions: No Action trazodone 150 mg tablet 150 mg PO BEDTIME RF: 0 polyethylene glycol 3350 [Miralax] 17 gram Powder In Packet 17 g PO DAILY PRN (Reason: Constipation) RF: 0 albuterol sulfate [Ventolin HFA] 90 mcg/actuation Hfa Aerosol Inhaler 2 puff inhalation RQ4H PRN (Reason: Shortness Of Breath) Qty: 6.7 RF: 0 chlorpromazine 50 mg Tablet 50 mg PO DAILY PRN (Reason: Psychosis) RF: 0 nicotine (polacrilex) 2 mg Lozenge 2 mg BUCCAL Q2H PRN (Reason: Nicotine Cravings) RF: 0 nicotine 21 mg/24 hr Patch 24 Hour 21 mg transdermal DAILY 28 Days Qty: 28 RF: 0 metformin 500 mg tablet 1 tab PO BID RF: 0 atorvastatin 10 mg tablet 1 tab PO DAILY RF: 0 doxazosin 1 mg tablet 4 mg PO BEDTIME RF: 0 naltrexone 50 mg tablet 1 tab PO DAILY RF: 0 haloperidol 1 mg tablet 3 tab PO TID RF: 0 pantoprazole 40 mg tablet,delayed release (DR/EC) 1 tab PO BID RF: 0 benztropine 1 mg tablet 1 tab PO BID RF: 0 verapamil 240 mg tablet extended release 1 tab PO BEDTIME RF: 0 montelukast 10 mg tablet 1 tab PO DAILY RF: 0 lisinopril 5 mg tablet 1 tab PO DAILY RF: 0 ferrous sulfate 325 mg (65 mg iron) tablet,delayed release (DR/EC) 1 tab PO DAILY RF: 0 Flovent HFA 110 mcg/actuation HFA aerosol inhaler 2 puff inhalation BID RF: 0 norethindrone (contraceptive) [Deblitane] 0.35 mg Tablet 0.35 mg PO DAILY RF: 0 haloperidol decanoate 100 mg/mL solution 1 ml IM Q4W RF: 0
[2021-06-14] MEDS: LORazepam 1 MG TABLET 2 MG PO (18:56)
[2021-06-14 20:00] LABS: COVID-19 Test Negative (Negative); IDNOW Serial# 9DD0AD1C
[2021-06-14 23:53] VITALS: BP 101/63; PULSE 87; RESP 15; TEMP 36.8; O2SAT 96
--- NOTE | 2021-06-15 00:05 | MHC.CARE ---
[facility] unable to provide a clinician for evaluation this evening. CARE team contacted [facility] cistern room working supervisor to inform that this specification writer would be completing the assessment. This specification writer met with pt in pod room 5. She was sleeping but roused easily when this specification writer entered the room. She shared that she has been feeling depressed over the past week, sleeping more than usual and having a difficult time getting out of bed, and has been struggling with her appetite. She endorsed experiencing command auditory hallucinations telling her to hurt herself and identified plan to OD with tylenol, though denied any recent self harm or intent to self harm. She reported that she has been having panic attacks and has been self inducing after taking her medications. At baseline the pt experiences thoughts of suicide and engages in self harm as a means of coping with emotional distress. She stated that she feels that returning back to her senior living would be the most helpful thing for her at this time, noting that she has people who care about her there and that she wants to work and to see her therapist this week. Consulted with Sy Allison MD, in agreement with plan for pt to discharge back to her senior living in the morning. CARE team will contact program to facilitate return.
--- NOTE | 2021-06-15 06:30 | PC.NURSE ---
Patient slept through the night and through evenings, no distress observed/reported, mood pleasant, patient got seen by care team, disposition is d/c back to long term in the morning, care team will communicate with long term in the morning, will continue to monitor.
--- NOTE | 2021-06-15 07:25 | PC.NURSE ---
patient awake upon t/w's arrival to unit, seemingly awaiting dc. patient appears in no distress
--- NOTE | 2021-06-15 07:56 | MHC.CARE ---
0735 - Pt has been cleared for discharge by previous shift. intermediate does not have the staffing to collect pt. [facility] was contacted for a continuous pickling line pickler helper and delivery to pt's home. Voucher created.
== END 2021-06-15 07:44 | disposition home or self-care (01) ==
PROVIDERS: Emergency Provider Emergency Medicine; PCP Nurse Practitioner Family
DX: R45.851 Suicidal ideations (principal); Z20.822 Contact with and (suspected) exposure to COVID-19; F60.3 Borderline personality disorder; F31.81 Bipolar II disorder; Z91.5 Personal history of self-harm; F43.10 Post-traumatic stress disorder, unspecified; F17.210 Nicotine dependence, cigarettes, uncomplicated; Z79.02 Long term (current) use of antithrombotics/antiplatelets; Z79.899 Other long term (current) drug therapy
CPT/HCPCS: 36415; 87635; 99283

== ENCOUNTER 2021-06-15 16:58 | Emergency (ER) | payer MEDICARE, MEDICAID, SELFPAY ==
[2021-06-15 17:07] VITALS: BP 120/102; BP 160/110; PULSE 122; PULSE 72; RESP 20; TEMP 37.2; O2SAT 98; O2SAT 99; BMI 35.2
--- NOTE | 2021-06-15 17:14 | ECG_ITS ---
Test Reason : ATHSMA Blood Pressure : / mmHG Vent. Rate : 087 BPM Atrial Rate : 087 BPM P-R Int : 228 ms QRS Dur : 082 ms QT Int : 356 ms P-R-T Axes : 063 060 060 degrees QTc Int : 428 ms Sinus rhythm with 1st degree A-V block Possible Left atrial enlargement Borderline ECG When compared with ECG of 10-MAY-2021 11:32, HI interval has increased Questionable change in QRS axis ST elevation now present in Inferior leads T wave inversion no longer evident in Inferior leads Referred By: Anahi Zamorano Electronically Signed By:JESU EASTMAN
--- NOTE | 2021-06-15 17:25 | ED.PSYCH ---
HPI - Psych General Chief Complaint: Psychiatric Symptoms Stated Complaint: SECTION 12, SI FROM INTERMEDIATE Time Seen by Provider: 06/15/21 17:08 Source: patient and EMS Mode of arrival: EMS Limitations: no limitations History of Present Illness HPI Narrative: 45-year-old female with a past medical history of bipolar, borderline personality disorder, PTSD, anxiety, depression here with complaints of suicidal thoughts. Patient tells me that she wants to cut her wrist, set herself on fire, overdose on medications if available. Of note the patient was seen here last evening and was seen by crisis and cleared for discharge home. She tells me she feels worse today. She currently resides in a senior living. They do dispense her medications. She tells me for the last 2 weeks she has been purposely throwing up her medications. Denies any nausea or abdominal pain. Related Data Home Medications Medication Instructions Recorded Confirmed trazodone 150 mg tablet 150 mg PO BEDTIME 01/27/21 06/15/21 polyethylene glycol 3350 17 gram 17 g PO DAILY PRN 02/12/21 06/15/21 oral powder packet (Miralax) chlorpromazine 50 mg tablet 50 mg PO DAILY PRN 05/02/21 06/15/21 atorvastatin 10 mg tablet 1 tab PO DAILY 05/29/21 06/15/21 benztropine 1 mg tablet 1 tab PO TID 05/29/21 06/15/21 doxazosin 1 mg tablet 4 mg PO BEDTIME 05/29/21 06/15/21 ferrous sulfate 325 mg (65 mg 1 tab PO DAILY 05/29/21 06/15/21 iron) tablet,delayed release fluticasone propionate 110 2 puff INHALATION BID 05/29/21 06/15/21 mcg/actuation HFA aerosol inhaler (Flovent HFA) haloperidol 1 mg tablet 3 tab PO TID 05/29/21 06/15/21 haloperidol decanoate 100 mg/mL 1 ml IM Q4W 05/29/21 06/15/21 intramuscular solution lisinopril 5 mg tablet 1 tab PO DAILY 05/29/21 06/15/21 metformin 500 mg tablet 1 tab PO BID 05/29/21 06/15/21 montelukast 10 mg tablet 1 tab PO BEDTIME 05/29/21 06/15/21 naltrexone 50 mg tablet 1 tab PO DAILY 05/29/21 06/15/21 norethindrone (contraceptive) 0.35 0.35 mg PO DAILY 05/29/21 06/15/21 mg tablet (Deblitane) pantoprazole 40 mg tablet,delayed 1 tab PO BID 05/29/21 06/15/21 release verapamil 240 mg tablet,extended 1 tab PO BEDTIME 05/29/21 06/15/21 release albuterol sulfate 90 mcg/actuation 2 puff INHALATION Q4H PRN 06/15/21 06/15/21 aerosol inhaler (Ventolin HFA) chlorpromazine 25 mg tablet 1 tab PO TID 06/15/21 06/15/21 Allergies Allergy/AdvReac Type Severity Reaction Status Date / Time Fish Containing Products Allergy Severe ANAPHYLAXIS Verified 06/15/21 17:06 codeine [Codeine] Allergy Unknown RASH Verified 06/15/21 17:06 Penicillins Allergy Unknown RASH Verified 06/15/21 17:06 prednisone [Prednisone] Allergy Unknown RASH Verified 06/15/21 17:06 Sulfa (Sulfonamide Allergy Unknown RASH Verified 06/15/21 17:06 Antibiotics) [Sulfa (Sulfonamides)] azithromycin [AZITHROMYCIN] AdvReac Severe RASH Verified 06/15/21 17:06 nicotine AdvReac Unknown HEART Verified 06/15/21 17:06 PALPITATION TO NICOTINE GUM Seafood Allergy Severe ANAPHYLAXIS Uncoded 07/01/20 16:44 From Geodon Allergy Unknown DYSURIA, Uncoded 07/01/20 16:44 RASH Review of Systems Review of Systems: Yes all other systems are reviewed and are negative Constitutional: Constitutional: Reports no additional constitutional complaints, Denies body ache(s), Denies chills, Denies fever(s), Denies headache(s) and Denies weakness Eyes: Eyes: Reports no additional eye complaints and Denies change in vision ENT: Reports system reviewed and no additional complaints, except as documented, Denies dizziness, Denies headache(s), Denies nasal congestion, Denies nasal discharge and Denies neck pain Cardiovascular: Cardiovascular: Reports no additional cardiovascular complaints, Denies chest pain, Denies leg edema and Denies dyspnea Respiratory: Respiratory: Reports no additional respiratory complaints, Denies cough and Denies dyspnea Gastrointestinal: Gastrointestinal: Reports no additional gastrointestinal complaints, Denies abdominal pain, Denies diarrhea, Denies nausea and Denies vomiting Genitourinary: Genitourinary: Reports no additional female genitourinary complaints and Denies urinary incontinence Musculoskeletal: Musculoskeletal: Reports no additional musculoskeletal complaints, Denies back pain, Denies arthralgias, Denies joint swelling, Denies neck pain, Denies numbness and Denies tingling Integumentary/Breasts: Skin/Breast: Reports system reviewed and no additional complaints, except as docu and Denies rash Neurologic: Reports system reviewed and no additional complaints, except as documented, Denies Abnormal speech present, Denies dizziness, Denies headache(s), Denies numbness, Denies tingling and Denies weakness Psychiatric: Psychiatric: Reports anxiety, Reports depression, Reports paranoia, Denies visual hallucinations, Denies hallucinations, Denies homicidal ideation and Reports suicidal ideation [facility] Past Medical History Attestation statement: The following information was validated with the patient. Source: old records reviewed and nursing notes reviewed Medical History Bronchitis GERD (gastroesophageal reflux disease) Hyperlipidemia Mood disorder Overdose PTSD (post-traumatic stress disorder) Social History Social History 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: Other 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 Other:: Senior Care Housing: Other Housing Other:: [facility] Do you presently have visiting nurse or other home services: No Alcohol intake: never Patient Tobacco Use Status: Current everyday Tobacco user Tobacco use type: Cigarette Cigarette Packs Per Day: 1 Cigarettes Per Day: 20.0 Years Smoked: 20 e-Cigarette/Vaping Use: Currently Using Second Hand Smoke Exposure: Yes Substance Use Type: Caffiene Advance Directives: No Advance Directives Information Provided: No Patient : No service: No Sexual orientation: Don't Know Physical Exam Vital Signs: Vital Signs: Last Vital Signs Temp 98.0 F 06/15/21 21:09 Pulse 94 06/15/21 21:09 Resp 16 06/15/21 21:09 BP 128/85 06/15/21 21:09 Pulse Ox 98 06/15/21 21:09 Body Mass Index 35.2 Const: General: cooperative, healthy appearing, comfortable and no acute distress Orientation/consciousness: patient oriented x3 Limitations: no limitations HENMT: Head: Yes normal to inspection Ears: hearing grossly normal bilaterally General nose exam: Normal external nose present Face and sinus: Yes normal facial exam Mouth: Normal oral and palatal mucosa present Throat: Yes posterior oropharynx normal Eyes: General: appearance normal, both eyes and all related structures Pupils: Equal, round and reactive pupils present Neck: Neck: Yes normal visual inspection Chest: Chest palpation & inspection: normal inspection of the chest Resp: Effort & Inspection: normal respiratory effort Auscultation: clear to auscultation bilaterally Cardio: Rate: tachycardic (140 by palp) Rhythm: regular rhythm Peripheral pulses: Peripheral pulses 2+ throughout GI: Inspection: Yes normal to inspection Palpation (GI): Soft to palpation and nontender Auscultation: normal bowel sounds Back/Spine/Pelvis: Thoracic/Lumbar Spine: thoracic and lumbar spine normal to inspection Skin: General skin exam: no rashes or lesions noted Neuro: General: patient oriented x3, no focal motor deficits and normal sensation to monofilament Cranial nerves: Yes CN's II-XII intact bilaterally, Yes Equal, round and reactive pupils present, Yes Bilaterally intact EOM present, Yes Nystagmus not present, Yes Normal facial strength present and Yes Midline tongue present Cognition (Neuro): normal cognition Speech: No Abnormal speech present Gait exam (Neuro): Normal gait present Motor exam (neuro): 5/5 motor strength present throughout Sensory Exam: Normal double simultaneous stimulation for sensation Extrem: General: Yes normal to inspection, Yes no pedal edema and Yes no calf tenderness Psych: Affect: Blunted affect present Thought content: Suicidality present Course Course Course Narrative: 45-year-old female well known to this department here with complaints of suicidal thoughts with multiple plans from a senior living. Patient seen here last evening and discharged back to the senior living after similar presentation. She is noted to be tachycardic with a rate of 140. She tells me she has been purposely vomiting up food in her medications. Abdomen is soft nontender. Will check labs, drug screen, EKG, covid screen. Will have nursing give 2 L normal saline and recheck heart rate. Once medically cleared will need crisis evaluation. 2100-heart rate now improved to 2 L of fluid. Patient is medically cleared for crisis evaluation. Will place physician observation pending above MDM - Psych Medical Records Attestation: I reviewed the patient's medical records. Lab Data Attestation: I reviewed the patient's lab results. Result diagrams: 06/15/21 19:23 06/15/21 19:23 Labs: Lab Results 06/15/21 06/15/21 06/15/21 Range/Units 17:23 17:23 17:25 WBC (4.8-10.8) X10*3/uL RBC (4.20-5.50) X10*6/uL Hgb (12.0-16.0) g/dl Hct (37-47) % MCV (80-98) fL MCH (27.0-33.0) pg MCHC (31.0-35.0) g/dl RDW (11.0-16.0) % Plt Count (160-400) X10*3/uL MPV (9.4-12.3) fL Immature Gran % (Auto) (0.0-0.4) % Neut % (Auto) (45-73) % Lymph % (Auto) (20-40) % [place] % (Auto) (2-11) % Eos % (Auto) (0-4) % Baso % (Auto) (0-2) % Lymph # (Auto) (1.2-4.9) X10*3/uL [place] # (Auto) (0.1-1.2) X10*3/uL Eos # (Auto) (0.0-0.4) X10*3/uL Baso # (Auto) (0.0-0.2) X10*3/uL Abs Immat Gran (auto) (0.00-0.03) X10*3/uL Absolute Neuts (auto) (2.0-8.3) X10*3/uL Absolute Nucleated RBC (0.0-0.012) X10*3/uL Nucleated RBC % (auto) (0.0-0.2) /100WBC Smear Tech's Comments Sodium (135-145) mmol/L Potassium (3.3-5.1) mmol/L Chloride (96-108) mmol/L Carbon Dioxide (22-29) mmol/L Anion Gap (12-20) BUN (9-16) mg/dL Creatinine (0.5-1.4) mg/dL Estim Creat Clear Calc Estimated GFR Random Glucose (60-115) mg/dL Calcium (8.4-10.2) mg/dL Total Bilirubin (0.0-1.0) mg/dL Direct Bilirubin (0.0-0.5) mg/dL AST (5-31) U/L ALT (0-31) U/L Alkaline Phosphatase (39-117) U/L Total Protein (6.5-8.0) g/dL Albumin (3.5-5.0) g/dL Urine Color Urine Appearance Urine pH (5.0-8.0) Ur Specific [place] (1.005-1.025) Urine Protein (NEG-TRACE) MG/DL Urine Glucose (UA) (NEG) MG/DL Urine Ketones (NEG) MG/DL Urine Blood (NEG) Urine Nitrite (NEG) Ur Leukocyte Esterase (NEG) Urine Test NEGATIVE (NEGATIVE) Salicylates (15-30) mg/dL Urine Opiates Screen Not Detected (Not Detect) Urine Fentanyl Screen Not Detected (Not Detect) Acetaminophen (<30) mcg/mL Ur Barbiturates Screen Not Detected (Not Detect) Ur Phencyclidine Scrn Not Detected (Not Detect) Ur Amphetamines Screen Not Detected (Not Detect) U Benzodiazepines Scrn Not Detected (Not Detect) Urine Cocaine Screen Not Detected (Not Detect) U Marijuana (THC) Screen Not Detected (Not Detect) Ethyl Alcohol mg/dL COVID-19 (NICK) Negative (Negative) COVID-19 Clin Com See Note 06/15/21 06/15/21 06/15/21 Range/Units 17:25 19:23 19:23 WBC 7.6 (4.8-10.8) X10*3/uL RBC 4.24 (4.20-5.50) X10*6/uL Hgb 13.0 (12.0-16.0) g/dl Hct 38.6 (37-47) % MCV 91.0 (80-98) fL MCH 30.7 (27.0-33.0) pg MCHC 33.7 (31.0-35.0) g/dl RDW 12.5 (11.0-16.0) % Plt Count 232 (160-400) X10*3/uL MPV 10.1 (9.4-12.3) fL Immature Gran % (Auto) 0.4 (0.0-0.4) % Neut % (Auto) 67.9 (45-73) % Lymph % (Auto) 22.2 (20-40) % [place] % (Auto) 7.4 (2-11) % Eos % (Auto) 1.6 (0-4) % Baso % (Auto) 0.5 (0-2) % Lymph # (Auto) 1.7 (1.2-4.9) X10*3/uL [place] # (Auto) 0.6 (0.1-1.2) X10*3/uL Eos # (Auto) 0.1 (0.0-0.4) X10*3/uL Baso # (Auto) 0.0 (0.0-0.2) X10*3/uL Abs Immat Gran (auto) 0.03 (0.00-0.03) X10*3/uL Absolute Neuts (auto) 5.1 (2.0-8.3) X10*3/uL Absolute Nucleated RBC 0.000 (0.0-0.012) X10*3/uL Nucleated RBC % (auto) 0.0 (0.0-0.2) /100WBC Smear Tech's Comments VERIFIED Sodium 140 (135-145) mmol/L Potassium 3.8 (3.3-5.1) mmol/L Chloride 107 (96-108) mmol/L Carbon Dioxide 26 (22-29) mmol/L Anion Gap 11 L (12-20) BUN 8 L (9-16) mg/dL Creatinine 0.73 (0.5-1.4) mg/dL Estim Creat Clear Calc 114.0 Estimated GFR > 60 Random Glucose 134 H (60-115) mg/dL Calcium 9.1 (8.4-10.2) mg/dL Total Bilirubin 0.2 (0.0-1.0) mg/dL Direct Bilirubin < 0.2 (0.0-0.5) mg/dL AST 10 (5-31) U/L ALT 10 (0-31) U/L Alkaline Phosphatase 88 (39-117) U/L Total Protein 6.9 (6.5-8.0) g/dL Albumin 4.3 (3.5-5.0) g/dL Urine Color STRAW Urine Appearance CLEAR Urine pH 6.5 (5.0-8.0) Ur Specific [place] <= 1.005 (1.005-1.025) Urine Protein NEG (NEG-TRACE) MG/DL Urine Glucose (UA) NEG (NEG) MG/DL Urine Ketones NEG (NEG) MG/DL Urine Blood NEG (NEG) Urine Nitrite NEG (NEG) Ur Leukocyte Esterase NEG (NEG) Urine Test (NEGATIVE) Salicylates < 5.0 L (15-30) mg/dL Urine Opiates Screen (Not Detect) Urine Fentanyl Screen (Not Detect) Acetaminophen < 1 (<30) mcg/mL Ur Barbiturates Screen (Not Detect) Ur Phencyclidine Scrn (Not Detect) Ur Amphetamines Screen (Not Detect) U Benzodiazepines Scrn (Not Detect) Urine Cocaine Screen (Not Detect) U Marijuana (THC) Screen (Not Detect) Ethyl Alcohol mg/dL COVID-19 (NICK) (Negative) COVID-19 Clin Com 06/15/21 Range/Units 19:23 WBC (4.8-10.8) X10*3/uL RBC (4.20-5.50) X10*6/uL Hgb (12.0-16.0) g/dl Hct (37-47) % MCV (80-98) fL MCH (27.0-33.0) pg MCHC (31.0-35.0) g/dl RDW (11.0-16.0) % Plt Count (160-400) X10*3/uL MPV (9.4-12.3) fL Immature Gran % (Auto) (0.0-0.4) % Neut % (Auto) (45-73) % Lymph % (Auto) (20-40) % [place] % (Auto) (2-11) % Eos % (Auto) (0-4) % Baso % (Auto) (0-2) % Lymph # (Auto) (1.2-4.9) X10*3/uL [place] # (Auto) (0.1-1.2) X10*3/uL Eos # (Auto) (0.0-0.4) X10*3/uL Baso # (Auto) (0.0-0.2) X10*3/uL Abs Immat Gran (auto) (0.00-0.03) X10*3/uL Absolute Neuts (auto) (2.0-8.3) X10*3/uL Absolute Nucleated RBC (0.0-0.012) X10*3/uL Nucleated RBC % (auto) (0.0-0.2) /100WBC Smear Tech's Comments Sodium (135-145) mmol/L Potassium (3.3-5.1) mmol/L Chloride (96-108) mmol/L Carbon Dioxide (22-29) mmol/L Anion Gap (12-20) BUN (9-16) mg/dL Creatinine (0.5-1.4) mg/dL Estim Creat Clear Calc Estimated GFR Random Glucose (60-115) mg/dL Calcium (8.4-10.2) mg/dL Total Bilirubin (0.0-1.0) mg/dL Direct Bilirubin (0.0-0.5) mg/dL AST (5-31) U/L ALT (0-31) U/L Alkaline Phosphatase (39-117) U/L Total Protein (6.5-8.0) g/dL Albumin (3.5-5.0) g/dL Urine Color Urine Appearance Urine pH (5.0-8.0) Ur Specific [place] (1.005-1.025) Urine Protein (NEG-TRACE) MG/DL Urine Glucose (UA) (NEG) MG/DL Urine Ketones (NEG) MG/DL Urine Blood (NEG) Urine Nitrite (NEG) Ur Leukocyte Esterase (NEG) Urine Test (NEGATIVE) Salicylates (15-30) mg/dL Urine Opiates Screen (Not Detect) Urine Fentanyl Screen (Not Detect) Acetaminophen (<30) mcg/mL Ur Barbiturates Screen (Not Detect) Ur Phencyclidine Scrn (Not Detect) Ur Amphetamines Screen (Not Detect) U Benzodiazepines Scrn (Not Detect) Urine Cocaine Screen (Not Detect) U Marijuana (THC) Screen (Not Detect) Ethyl Alcohol < 10 mg/dL COVID-19 (NICK) (Negative) COVID-19 Clin Com ECG Data Attestation: I personally reviewed and interpreted this ECG as follows: ECG interpretation date: 06/15/21 ECG interpretation time: 19:10 Interpretation: Sinus rhythm with a first-degree AV block. Normal NV, normal QRS, normal QT Discharge Plan Discharge Clinical Impression: Borderline personality disorder, Bipolar II disorder with melancholic features, PTSD (post-traumatic stress disorder) Prescriptions: No Action trazodone 150 mg tablet 150 mg PO BEDTIME RF: 0 polyethylene glycol 3350 [Miralax] 17 gram Powder In Packet 17 g PO DAILY PRN (Reason: Constipation) RF: 0 chlorpromazine 50 mg Tablet 50 mg PO DAILY PRN (Reason: Psychosis) RF: 0 metformin 500 mg tablet 1 tab PO BID RF: 0 atorvastatin 10 mg tablet 1 tab PO DAILY RF: 0 doxazosin 1 mg tablet 4 mg PO BEDTIME RF: 0 naltrexone 50 mg tablet 1 tab PO DAILY RF: 0 haloperidol 1 mg tablet 3 tab PO TID RF: 0 pantoprazole 40 mg tablet,delayed release (DR/EC) 1 tab PO BID RF: 0 benztropine 1 mg tablet 1 tab PO TID RF: 0 verapamil 240 mg tablet extended release 1 tab PO BEDTIME RF: 0 montelukast 10 mg tablet 1 tab PO BEDTIME RF: 0 lisinopril 5 mg tablet 1 tab PO DAILY RF: 0 ferrous sulfate 325 mg (65 mg iron) tablet,delayed release (DR/EC) 1 tab PO DAILY RF: 0 Flovent HFA 110 mcg/actuation HFA aerosol inhaler 2 puff inhalation BID RF: 0 norethindrone (contraceptive) [Deblitane] 0.35 mg Tablet 0.35 mg PO DAILY RF: 0 haloperidol decanoate 100 mg/mL solution 1 ml IM Q4W RF: 0 chlorpromazine 25 mg tablet 1 tab PO TID RF: 0 albuterol sulfate [Ventolin HFA] 90 mcg/actuation HFA aerosol inhaler 2 puff inhalation Q4H PRN (Reason: Shortness Of Breath) RF: 0
--- NOTE | 2021-06-15 17:29 | PC.NURSE ---
per provider, patient needs to move to main ED for hydration
[2021-06-15 17:46] LABS: Amphetamine Screen Urine Not Detected (Not Detect); Barbiturates, Urine Not Detected (Not Detect); Benzodiazepines Screen Urine Not Detected (Not Detect); Cannabinoid Screen Urine Not Detected (Not Detect); Cocaine Screen Urine Not Detected (Not Detect); Fentanyl, urine Not Detected (Not Detect); Opiate Screen Urine Not Detected (Not Detect); Phencyclidine Screen Urine Not Detected (Not Detect)
[2021-06-15 17:49] LABS: COVID-19 Test Negative (Negative); IDNOW Serial# 55D5AD1C
[2021-06-15] MEDS: 0.9 % Sodium Chloride 2,000 ML 999 ML IV (18:05)
[2021-06-15 19:29] LABS: Basophils Percent Auto 0.5 % (0-2); MANUAL DIFF FLAG SCAN; PLT CLUMP 1; Red Cell Distribution Width 12.5 % (11.0-16.0); SCAN SMEAR FLAG 1
[2021-06-15 19:31] LABS: Eosinophils Absolute Auto 0.1 X10*3/uL (0.0-0.4); Eosinophils Percent Auto 1.6 % (0-4); Hematocrit 38.6 % (37-47); Imm Gran Abs Auto 0.03 X10*3/uL (0.00-0.03); Imm Gran Pct Auto 0.4 % (0.0-0.4); Lymphocytes Absolute Auto 1.7 X10*3/uL (1.2-4.9); Lymphocytes Percent Auto 22.2 % (20-40); Mean Corpuscular HGB Conc 33.7 g/dl (31.0-35.0); Mean Corpuscular Hemoglobin 30.7 pg (27.0-33.0); Mean Platelet Volume 10.1 fL (9.4-12.3); Monocytes Absolute Auto 0.6 X10*3/uL (0.1-1.2); Monocytes Percent Auto 7.4 % (2-11); Neutrophils Absolute Auto 5.1 X10*3/uL (2.0-8.3); Neutrophils Percent Auto 67.9 % (45-73); Platelet Count 232 X10*3/uL (160-400); Red Blood Count 4.24 X10*6/uL (4.20-5.50); White Blood Count 7.6 X10*3/uL (4.8-10.8)
[2021-06-15 19:43] LABS: Ethanol < 10 mg/dL
[2021-06-15 19:48] LABS: Alanine Aminotransferase 10 U/L (0-31); Albumin Level 4.3 g/dL (3.5-5.0); Alkaline Phosphatase 88 U/L (39-117); Anion Gap 11 (12-20); Aspartate Amino Transferase 10 U/L (5-31); Bilirubin Direct < 0.2 mg/dL (0.0-0.5); Bilirubin Total 0.2 mg/dL (0.0-1.0); Blood Urea Nitrogen 8 mg/dL (9-16); Calcium 9.1 mg/dL (8.4-10.2); Carbon Dioxide 26 mmol/L (22-29); Chloride 107 mmol/L (96-108); Estimated Glomerular Filt Rate > 60; Glucose Random 134 mg/dL (60-115); Potassium 3.8 mmol/L (3.3-5.1); SLIDE REVIEW VERIFIED; Sodium 140 mmol/L (135-145); Total Protein 6.9 g/dL (6.5-8.0)
[2021-06-15 20:01] LABS: Acetaminophen LAB < 1 mcg/mL (<30); Salicylate < 5.0 mg/dL (15-30)
[2021-06-15 21:09] VITALS: BP 128/85; PULSE 94; RESP 16; TEMP 36.7; O2SAT 98
[2021-06-15 23:00] LABS: Glucose Urine UA NEG (NEG); Leukocyte Esterase Urine NEG (NEG); Nitrite Urine NEG (NEG); PH 6.5 (5.0-8.0); Specific Gravity - Urine <= 1.005 (1.005-1.025); Urine Blood NEG (NEG); Urine Ketones NEG (NEG); Urine Protein NEG (NEG-TRACE)
[2021-06-15 23:01] LABS: Appearance Urine CLEAR; Color Urine STRAW
[2021-06-15 23:02] LABS: UPreg QC Valid YES; Urine Pregnancy NEGATIVE (NEGATIVE)
--- NOTE | 2021-06-16 00:30 | PC.NURSE ---
Patient refused to take her night time medication, N referral completed/confirmed by Howard, ETA is tomorrow morning, will continue to monitor.
--- NOTE | 2021-06-16 02:37 | MHC.CARE ---
Pt is well-known to [facility] crisis, CARE team and ED. pt historically presents with baseline sx's such as SI with a plan to cut her wrist. Pt presents today with baseline sx's and requests to go home. Pt reports she is feeling better and contracts for safety. She denies SI and requests to go home. pt will be d/c tomorrow morning and CARE team can facilitate transportation if correction doesn't have the staff to assist. Pt is calm and cooperative, resting in bed. Dr. Allison is agreeable with plan.
[2021-06-16] MEDS: Omeprazole 20 MG CAPSULE.DR PO (05:32)
[2021-06-16 05:37] VITALS: BP 129/90; PULSE 84; RESP 16; TEMP 36.6; O2SAT 97
--- NOTE | 2021-06-16 05:42 | PC.NURSE ---
Patient slept through the night, compliant with morning meds, no distress observed/reported, behavior at baseline/non concerning, care team assessed the patient, disposition d/c back to detention, patient and provider in agreement with plan, care team will facilitate transportation, VSS, will continue to monitor.
--- NOTE | 2021-06-16 07:32 | PC.NURSE ---
patient remains asleep at present respirations even and unlabored. patient ready for dc to longterm today
== END 2021-06-16 08:33 | disposition home or self-care (01) ==
PROVIDERS: Nurse Practitioner Family; Emergency Provider Emergency Medicine Emergency Medical Services; PCP Nurse Practitioner Family
DX: R45.851 Suicidal ideations (principal); F60.3 Borderline personality disorder; F31.9 Bipolar disorder, unspecified; F32.89 Other specified depressive episodes; F43.10 Post-traumatic stress disorder, unspecified; R00.0 Tachycardia, unspecified; Z20.822 Contact with and (suspected) exposure to COVID-19; F41.9 Anxiety disorder, unspecified; Z79.899 Other long term (current) drug therapy; F17.210 Nicotine dependence, cigarettes, uncomplicated; Z79.02 Long term (current) use of antithrombotics/antiplatelets; Z79.51 Long term (current) use of inhaled steroids
CPT/HCPCS: 36415; 80048; 80076; 80143; 80179; 80307; 81003; 81025; 82077; 85025; 87635; 93005; 96360; 99284; 99285

== ENCOUNTER 2021-06-25 16:44 | Emergency (ER) | payer MEDICARE, MEDICAID, SELFPAY ==
[2021-06-25 16:57] VITALS: BP 140/110; BP 153/111; PULSE 112; PULSE 129; RESP 16; TEMP 37.6; O2SAT 96; O2SAT 97; BMI 40.3
--- NOTE | 2021-06-25 17:09 | ED.PSYCH ---
HPI - Psych General Chief Complaint: Psychiatric Symptoms Stated Complaint: SI Time Seen by Provider: 06/25/21 17:00 Source: patient Mode of arrival: ambulatory Limitations: no limitations History of Present Illness HPI Narrative: 45-year-old female with a past medical history of bipolar, borderline personality disorder, PTSD, anxiety, depression here with complaints of suicidal thoughts, hearing voices telling her to kill herself. She tells me she would like to overdose on all of her medications if they are available to her. She tells me she feels this way because someone today called her a retarded bitch. No physical complaints Related Data Home Medications Medication Instructions Recorded Confirmed trazodone 150 mg tablet 150 mg PO BEDTIME 01/27/21 06/25/21 polyethylene glycol 3350 17 gram 17 g PO DAILY PRN 02/12/21 06/25/21 oral powder packet (Miralax) chlorpromazine 50 mg tablet 50 mg PO DAILY PRN 05/02/21 06/25/21 atorvastatin 10 mg tablet 1 tab PO DAILY 05/29/21 06/25/21 benztropine 1 mg tablet 1 tab PO TID 05/29/21 06/25/21 doxazosin 1 mg tablet 4 mg PO BEDTIME 05/29/21 06/25/21 ferrous sulfate 325 mg (65 mg 1 tab PO DAILY 05/29/21 06/25/21 iron) tablet,delayed release fluticasone propionate 110 2 puff INHALATION BID 05/29/21 06/25/21 mcg/actuation HFA aerosol inhaler (Flovent HFA) haloperidol 1 mg tablet 3 tab PO TID 05/29/21 06/25/21 haloperidol decanoate 100 mg/mL 1 ml IM Q4W 05/29/21 06/15/21 intramuscular solution lisinopril 5 mg tablet 1 tab PO DAILY 05/29/21 06/25/21 metformin 500 mg tablet 1 tab PO BID 05/29/21 06/25/21 montelukast 10 mg tablet 1 tab PO BEDTIME 05/29/21 06/25/21 naltrexone 50 mg tablet 1 tab PO DAILY 05/29/21 06/25/21 norethindrone (contraceptive) 0.35 0.35 mg PO DAILY 05/29/21 06/15/21 mg tablet (Deblitane) pantoprazole 40 mg tablet,delayed 1 tab PO BID 05/29/21 06/25/21 release verapamil 240 mg tablet,extended 1 tab PO BEDTIME 05/29/21 06/25/21 release albuterol sulfate 90 mcg/actuation 2 puff INHALATION Q4H PRN 06/15/21 06/25/21 aerosol inhaler (Ventolin HFA) chlorpromazine 25 mg tablet 1 tab PO TID 06/15/21 06/25/21 haloperidol decanoate 100 mg/mL 1 ml IM Q4W 06/25/21 06/25/21 intramuscular solution Allergies Allergy/AdvReac Type Severity Reaction Status Date / Time Fish Containing Products Allergy Severe ANAPHYLAXIS Verified 06/15/21 17:06 codeine [Codeine] Allergy Unknown RASH Verified 06/15/21 17:06 Penicillins Allergy Unknown RASH Verified 06/15/21 17:06 prednisone [Prednisone] Allergy Unknown RASH Verified 06/15/21 17:06 Sulfa (Sulfonamide Allergy Unknown RASH Verified 06/15/21 17:06 Antibiotics) [Sulfa (Sulfonamides)] azithromycin [AZITHROMYCIN] AdvReac Severe RASH Verified 06/15/21 17:06 nicotine AdvReac Unknown HEART Verified 06/15/21 17:06 PALPITATION TO NICOTINE GUM Seafood Allergy Severe ANAPHYLAXIS Uncoded 07/01/20 16:44 From Geodon Allergy Unknown DYSURIA, Uncoded 07/01/20 16:44 RASH Review of Systems Review of Systems: Yes all other systems are reviewed and are negative Constitutional: Constitutional: Reports no additional constitutional complaints, Denies body ache(s), Denies chills, Denies fever(s), Denies headache(s) and Denies weakness Eyes: Eyes: Reports no additional eye complaints and Denies change in vision ENT: Reports system reviewed and no additional complaints, except as documented, Denies dizziness, Denies headache(s), Denies nasal congestion, Denies nasal discharge and Denies neck pain Cardiovascular: Cardiovascular: Reports no additional cardiovascular complaints, Denies chest pain, Denies leg edema and Denies dyspnea Respiratory: Respiratory: Reports no additional respiratory complaints, Denies cough and Denies dyspnea Gastrointestinal: Gastrointestinal: Reports no additional gastrointestinal complaints, Denies abdominal pain, Denies diarrhea, Denies nausea and Denies vomiting Genitourinary: Genitourinary: Reports no additional female genitourinary complaints and Denies urinary incontinence Musculoskeletal: Musculoskeletal: Reports no additional musculoskeletal complaints, Denies back pain, Denies arthralgias, Denies joint swelling, Denies neck pain, Denies numbness and Denies tingling Integumentary/Breasts: Skin/Breast: Reports system reviewed and no additional complaints, except as docu and Denies rash Neurologic: Reports system reviewed and no additional complaints, except as documented, Denies Abnormal speech present, Denies dizziness, Denies headache(s), Denies numbness, Denies tingling and Denies weakness Psychiatric: Psychiatric: Reports depression, Denies hallucinations, Denies homicidal ideation and Reports suicidal ideation [facility] Past Medical History Attestation statement: The following information was validated with the patient. Source: old records reviewed and nursing notes reviewed Medical History Bronchitis GERD (gastroesophageal reflux disease) Hyperlipidemia Mood disorder Overdose PTSD (post-traumatic stress disorder) Social History Social History 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: Other 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 Other:: Long-Term Housing: Other Housing Other:: [facility] Home Do you presently have visiting nurse or other home services: No Alcohol intake: never Patient Tobacco Use Status: Current everyday Tobacco user Tobacco use type: Cigarette Cigarette Packs Per Day: 1 Cigarettes Per Day: 20.0 Years Smoked: 20 e-Cigarette/Vaping Use: Currently Using Second Hand Smoke Exposure: Yes Substance Use Type: Caffiene Advance Directives: No Advance Directives Information Provided: No Patient : No service: No Sexual orientation: Don't Know Physical Exam Vital Signs: Vital Signs: Last Vital Signs Temp 99.7 F 06/25/21 16:57 Pulse 85 06/25/21 20:42 Resp 16 06/25/21 16:57 BP 127/86 06/25/21 20:42 Pulse Ox 96 06/25/21 16:57 Body Mass Index 40.3 Const: General: cooperative, healthy appearing, comfortable and no acute distress Orientation/consciousness: patient oriented x3 Limitations: no limitations HENMT: Head: Yes normal to inspection Ears: hearing grossly normal bilaterally General nose exam: Normal external nose present Face and sinus: Yes normal facial exam Mouth: Normal oral and palatal mucosa present Throat: Yes posterior oropharynx normal Eyes: General: appearance normal, both eyes and all related structures Pupils: Equal, round and reactive pupils present Neck: Neck: Yes normal visual inspection Chest: Chest palpation & inspection: normal inspection of the chest Resp: Effort & Inspection: normal respiratory effort Auscultation: clear to auscultation bilaterally Cardio: Rate: regular rate Rhythm: regular rhythm Peripheral pulses: Peripheral pulses 2+ throughout GI: Inspection: Yes normal to inspection Palpation (GI): Soft to palpation and nontender Auscultation: normal bowel sounds Back/Spine/Pelvis: Thoracic/Lumbar Spine: thoracic and lumbar spine normal to inspection Skin: General skin exam: no rashes or lesions noted Neuro: General: patient oriented x3, no focal motor deficits and normal sensation to monofilament Cranial nerves: Yes Equal, round and reactive pupils present Cognition (Neuro): normal cognition Speech: No Abnormal speech present Gait exam (Neuro): Normal gait present Motor exam (neuro): 5/5 motor strength present throughout Extrem: General: Yes normal to inspection, Yes no pedal edema and Yes no calf tenderness Course Course Course Narrative: 45-year-old female well known to this department here with complaints of suicidal thoughts, hearing voices telling her to hurt herself after a interaction with another long-term member today. No physical complaints. Patient just had labs on June 15. Will check drug screen, COVID screen. Will have patient come and evaluate the patient 2100-no concern for acute ingestion or trauma. BHN onsult placed. Patient placed in physician observation pending above Sign out to night team pending above. MDM - Psych Medical Records Attestation: I reviewed the patient's medical records. Lab Data Attestation: I reviewed the patient's lab results. Labs: Lab Results 06/25/21 Range/Units 17:23 Urine Opiates Screen Not Detected (Not Detect) Urine Fentanyl Screen Not Detected (Not Detect) Ur Barbiturates Screen Not Detected (Not Detect) Ur Phencyclidine Scrn Not Detected (Not Detect) Ur Amphetamines Screen Not Detected (Not Detect) U Benzodiazepines Scrn Not Detected (Not Detect) Urine Cocaine Screen Not Detected (Not Detect) U Marijuana (THC) Screen Not Detected (Not Detect) Discharge Plan Discharge Clinical Impression: Bipolar II disorder with melancholic features, PTSD (post-traumatic stress disorder) Prescriptions: No Action trazodone 150 mg tablet 150 mg PO BEDTIME RF: 0 polyethylene glycol 3350 [Miralax] 17 gram Powder In Packet 17 g PO DAILY PRN (Reason: Constipation) RF: 0 chlorpromazine 50 mg Tablet 50 mg PO DAILY PRN (Reason: Psychosis) RF: 0 metformin 500 mg tablet 1 tab PO BID RF: 0 atorvastatin 10 mg tablet 1 tab PO DAILY RF: 0 doxazosin 1 mg tablet 4 mg PO BEDTIME RF: 0 naltrexone 50 mg tablet 1 tab PO DAILY RF: 0 haloperidol 1 mg tablet 3 tab PO TID RF: 0 pantoprazole 40 mg tablet,delayed release (DR/EC) 1 tab PO BID RF: 0 benztropine 1 mg tablet 1 tab PO TID RF: 0 verapamil 240 mg tablet extended release 1 tab PO BEDTIME RF: 0 montelukast 10 mg tablet 1 tab PO BEDTIME RF: 0 lisinopril 5 mg tablet 1 tab PO DAILY RF: 0 ferrous sulfate 325 mg (65 mg iron) tablet,delayed release (DR/EC) 1 tab PO DAILY RF: 0 Flovent HFA 110 mcg/actuation HFA aerosol inhaler 2 puff inhalation BID RF: 0 norethindrone (contraceptive) [Deblitane] 0.35 mg Tablet 0.35 mg PO DAILY RF: 0 haloperidol decanoate 100 mg/mL solution 1 ml IM Q4W RF: 0 chlorpromazine 25 mg tablet 1 tab PO TID RF: 0 albuterol sulfate [Ventolin HFA] 90 mcg/actuation HFA aerosol inhaler 2 puff inhalation Q4H PRN (Reason: Shortness Of Breath) RF: 0 haloperidol decanoate 100 mg/mL solution 1 ml IM Q4W RF: 0
[2021-06-25] MEDS: chlorproMAZINE HCl 25 MG TABLET 50 MG PO (17:15)
[2021-06-25 17:48] LABS: Amphetamine Screen Urine Not Detected (Not Detect); Barbiturates, Urine Not Detected (Not Detect); Benzodiazepines Screen Urine Not Detected (Not Detect); Cannabinoid Screen Urine Not Detected (Not Detect); Cocaine Screen Urine Not Detected (Not Detect); Fentanyl, urine Not Detected (Not Detect); Opiate Screen Urine Not Detected (Not Detect); Phencyclidine Screen Urine Not Detected (Not Detect)
[2021-06-25] MEDS: Benztropine Mesylate 1 MG TABLET PO (20:32)
[2021-06-25] MEDS: traZODone HCL 50 MG TABLET 150 MG PO (20:32)
[2021-06-25] MEDS: HaloperidoL 1 MG TABLET 3 MG PO (20:32)
[2021-06-25] MEDS: Montelukast Sodium 10 MG TABLET PO (20:32)
[2021-06-25] MEDS: chlorproMAZINE HCl 25 MG TABLET PO (20:32)
[2021-06-25 20:35] VITALS: BP 127/86; PULSE 85
[2021-06-25] MEDS: Doxazosin Mesylate 2 MG TABLET 4 MG PO (20:35)
[2021-06-25 20:42] VITALS: BP 127/86; PULSE 85
[2021-06-25] MEDS: VerapamiL HCL SR 240 MG TABLET.ER PO (20:42)
[2021-06-25] MEDS: Fluticasone Propionate 100 MCG BLST.W.DEV 2 PUFF INHALE (20:43)
[2021-06-25 21:03] LABS: COVID-19 Test Negative (Negative)
--- NOTE | 2021-06-25 21:37 | PC.NURSE ---
Patient in bed appears sleeping, no distress observed/reported, compliant with night time medication, no behavior and safety concerns at this time, BHN referral completed/confirmed by landon Carrillo at this time per N, will continue to monitor.
[2021-06-26 00:45] VITALS: BP 101/55; PULSE 62; RESP 16; TEMP 36.6; O2SAT 95
[2021-06-26] MEDS: Omeprazole 20 MG CAPSULE.DR PO (05:46)
--- NOTE | 2021-06-26 07:14 | PC.NURSE ---
patient appears to remain at rest at present, respirations are even and unlabored.
--- NOTE | 2021-06-26 07:57 | MHC.CARE ---
Pt is well known to the CARE Team and requesting to be discharged home to her residence. Pt denies current SI/HI. Pt does have baseline AH/VH when triggered. Pt is aware of how to ultize crisis services if needed. Plan for Pt to follow up with her outpatient providers and resources.
[2021-06-26 08:48] VITALS: BP 101/55; PULSE 62
[2021-06-26] MEDS: Fluticasone Propionate 100 MCG BLST.W.DEV 2 PUFF INHALE (08:48)
[2021-06-26] MEDS: HaloperidoL 1 MG TABLET 3 MG PO (08:48)
[2021-06-26] MEDS: chlorproMAZINE HCl 25 MG TABLET PO (08:48)
[2021-06-26] MEDS: lisinopriL 5 MG TABLET PO (08:48)
[2021-06-26] MEDS: Atorvastatin Calcium 10 MG TABLET PO (08:49)
[2021-06-26] MEDS: Ferrous Sulfate 324 MG TABLET.DR PO (08:49)
[2021-06-26] MEDS: Benztropine Mesylate 1 MG TABLET PO (08:49)
== END 2021-06-26 08:55 | disposition home or self-care (01) ==
PROVIDERS: Nurse Practitioner Family; Emergency Provider Emergency Medicine Emergency Medical Services; PCP Internal Medicine
DX: F31.81 Bipolar II disorder (principal); F43.10 Post-traumatic stress disorder, unspecified; R45.851 Suicidal ideations; F60.3 Borderline personality disorder; F41.9 Anxiety disorder, unspecified; F17.210 Nicotine dependence, cigarettes, uncomplicated; Z20.822 Contact with and (suspected) exposure to COVID-19; Z79.899 Other long term (current) drug therapy
CPT/HCPCS: 36415; 80307; 87635; 96372; 99284; 99285

== ENCOUNTER 2021-07-10 19:02 | Inpatient (IN) | payer MEDICARE, MEDICAID, SELFPAY ==
--- NOTE | 2021-07-10 19:08 | ED.SEIZURE ---
HPI - Seizure General Chief Complaint: Overdose Stated Complaint: SI ATTEMPT BY OD OF TYLENOL Time Seen by Provider: 07/10/21 19:08 Source: EMS Mode of arrival: EMS Limitations: no limitations History of Present Illness HPI Narrative: Unfortunate 45-year-old female who is very well-known to this facility she has extensive history of psychiatric problems including history of PTSD, borderline personality disorder, mood disorder, hyperlipidemia, gastroesophageal reflux disease, multiple prior overdoses who presents via EMS from the [facility] after she called for assistance after taking 24 tablets of 500 mg of Tylenol after which she says the voices in her head with telling her to do this to harm herself. States she is having increased voices in her head and thoughts of her disease father. She otherwise denies any alcohol or drug use. She does admit the incident of her taking his Tylenol occurred 1 hour prior to arrival. Related Data Home Medications Medication Instructions Recorded Confirmed trazodone 150 mg tablet 150 mg PO BEDTIME 01/27/21 06/25/21 polyethylene glycol 3350 17 gram 17 g PO DAILY PRN 02/12/21 06/25/21 oral powder packet (Miralax) chlorpromazine 50 mg tablet 50 mg PO DAILY PRN 05/02/21 06/25/21 atorvastatin 10 mg tablet 1 tab PO DAILY 05/29/21 06/25/21 benztropine 1 mg tablet 1 tab PO TID 05/29/21 06/25/21 doxazosin 1 mg tablet 4 mg PO BEDTIME 05/29/21 06/25/21 ferrous sulfate 325 mg (65 mg 1 tab PO DAILY 05/29/21 06/25/21 iron) tablet,delayed release fluticasone propionate 110 2 puff INHALATION BID 05/29/21 06/25/21 mcg/actuation HFA aerosol inhaler (Flovent HFA) haloperidol 1 mg tablet 3 tab PO TID 05/29/21 06/25/21 haloperidol decanoate 100 mg/mL 1 ml IM Q4W 05/29/21 06/15/21 intramuscular solution lisinopril 5 mg tablet 1 tab PO DAILY 05/29/21 06/25/21 metformin 500 mg tablet 1 tab PO BID 05/29/21 06/25/21 montelukast 10 mg tablet 1 tab PO BEDTIME 05/29/21 06/25/21 naltrexone 50 mg tablet 1 tab PO DAILY 05/29/21 06/25/21 norethindrone (contraceptive) 0.35 0.35 mg PO DAILY 05/29/21 06/15/21 mg tablet (Deblitane) pantoprazole 40 mg tablet,delayed 1 tab PO BID 05/29/21 06/25/21 release verapamil 240 mg tablet,extended 1 tab PO BEDTIME 05/29/21 06/25/21 release albuterol sulfate 90 mcg/actuation 2 puff INHALATION Q4H PRN 06/15/21 06/25/21 aerosol inhaler (Ventolin HFA) chlorpromazine 25 mg tablet 1 tab PO TID 06/15/21 06/25/21 haloperidol decanoate 100 mg/mL 1 ml IM Q4W 06/25/21 06/25/21 intramuscular solution Allergies Allergy/AdvReac Type Severity Reaction Status Date / Time Fish Containing Products Allergy Severe ANAPHYLAXIS Verified 06/15/21 17:06 codeine [Codeine] Allergy Unknown RASH Verified 06/15/21 17:06 Penicillins Allergy Unknown RASH Verified 06/15/21 17:06 prednisone [Prednisone] Allergy Unknown RASH Verified 06/15/21 17:06 Sulfa (Sulfonamide Allergy Unknown RASH Verified 06/15/21 17:06 Antibiotics) [Sulfa (Sulfonamides)] azithromycin [AZITHROMYCIN] AdvReac Severe RASH Verified 06/15/21 17:06 nicotine AdvReac Unknown HEART Verified 06/15/21 17:06 PALPITATION TO NICOTINE GUM Seafood Allergy Severe ANAPHYLAXIS Uncoded 07/01/20 16:44 From Geodon Allergy Unknown DYSURIA, Uncoded 07/01/20 16:44 RASH PMFSH Past Medical History Medical History Bronchitis GERD (gastroesophageal reflux disease) Hyperlipidemia Mood disorder Overdose PTSD (post-traumatic stress disorder) Social History Social History 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: Other 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 Other:: Assisted Housing: Other Housing Other:: [facility] Do you presently have visiting nurse or other home services: No Alcohol intake: never Patient Tobacco Use Status: Current everyday Tobacco user Tobacco use type: Cigarette Cigarette Packs Per Day: 1 Cigarettes Per Day: 20.0 Years Smoked: 20 e-Cigarette/Vaping Use: Currently Using Second Hand Smoke Exposure: Yes Substance Use Type: Caffiene Advance Directives: No Advance Directives Information Provided: No service: No Sexual orientation: Don't Know Physical Exam Vital Signs: Vital Signs: Last Vital Signs Temp 97.9 F 07/10/21 20:00 Pulse 107 H 07/11/21 00:59 Resp 18 07/11/21 00:59 BP 138/86 07/11/21 00:59 Pulse Ox 95 07/11/21 00:59 Body Mass Index 35.2 MDM - Seizure Lab Data Result diagrams: 07/10/21 19:31 07/10/21 22:06 Labs: Lab Results 07/10/21 07/10/21 07/10/21 Range/Units 19:22 19:22 19:31 WBC 10.3 (4.8-10.8) X10*3/uL RBC 4.17 L (4.20-5.50) X10*6/uL Hgb 13.0 (12.0-16.0) g/dl Hct 36.9 L (37-47) % MCV 88.5 (80-98) fL MCH 31.2 (27.0-33.0) pg MCHC 35.2 H (31.0-35.0) g/dl RDW 12.0 (11.0-16.0) % Plt Count 276 (160-400) X10*3/uL MPV 9.6 (9.4-12.3) fL Immature Gran % (Auto) 0.5 H (0.0-0.4) % Neut % (Auto) 68.9 (45-73) % Lymph % (Auto) 20.8 (20-40) % Harrison % (Auto) 7.8 (2-11) % Eos % (Auto) 1.8 (0-4) % Baso % (Auto) 0.2 (0-2) % Lymph # (Auto) 2.1 (1.2-4.9) X10*3/uL Harrison # (Auto) 0.8 (0.1-1.2) X10*3/uL Eos # (Auto) 0.2 (0.0-0.4) X10*3/uL Baso # (Auto) 0.0 (0.0-0.2) X10*3/uL Abs Immat Gran (auto) 0.05 H (0.00-0.03) X10*3/uL Absolute Neuts (auto) 7.1 (2.0-8.3) X10*3/uL Absolute Nucleated RBC 0.000 (0.0-0.012) X10*3/uL Nucleated RBC % (auto) 0.0 (0.0-0.2) /100WBC PT (9.9-13.0) SEC INR (0.9-1.1) APTT (24.1-38.0) SEC Sodium (135-145) mmol/L Potassium (3.3-5.1) mmol/L Chloride (96-108) mmol/L Carbon Dioxide (22-29) mmol/L Anion Gap (12-20) BUN (9-16) mg/dL Creatinine (0.5-1.4) mg/dL Estim Creat Clear Calc Estimated GFR Random Glucose (60-115) mg/dL Calcium (8.4-10.2) mg/dL Total Bilirubin (0.0-1.0) mg/dL AST (5-31) U/L ALT (0-31) U/L Alkaline Phosphatase (39-117) U/L Total Protein (6.5-8.0) g/dL Albumin (3.5-5.0) g/dL Urine Color STRAW Urine Appearance CLEAR Urine pH 6.0 (5.0-8.0) Ur Specific [place] <= 1.005 (1.005-1.025) Urine Protein NEG (NEG-TRACE) MG/DL Urine Glucose (UA) NEG (NEG) MG/DL Urine Ketones NEG (NEG) MG/DL Urine Blood NEG (NEG) Urine Nitrite NEG (NEG) Ur Leukocyte Esterase NEG (NEG) Urine RBC 0 (0) /HPF Urine WBC 0-2 (0-4) /HPF Ur Squamous Epith Cells 1+ /LPF Amorphous Sediment TRACE /LPF Urine Bacteria TRACE /LPF Urine Test NEGATIVE (NEGATIVE) Salicylates (15-30) mg/dL Urine Opiates Screen (Not Detect) Urine Fentanyl Screen (Not Detect) Acetaminophen (<30) mcg/mL Ur Barbiturates Screen (Not Detect) Ur Phencyclidine Scrn (Not Detect) Ur Amphetamines Screen (Not Detect) U Benzodiazepines Scrn (Not Detect) Urine Cocaine Screen (Not Detect) U Marijuana (THC) Screen (Not Detect) Ethyl Alcohol mg/dL 07/10/21 07/10/21 07/10/21 Range/Units 19:31 19:31 19:31 WBC (4.8-10.8) X10*3/uL RBC (4.20-5.50) X10*6/uL Hgb (12.0-16.0) g/dl Hct (37-47) % MCV (80-98) fL MCH (27.0-33.0) pg MCHC (31.0-35.0) g/dl RDW (11.0-16.0) % Plt Count (160-400) X10*3/uL MPV (9.4-12.3) fL Immature Gran % (Auto) (0.0-0.4) % Neut % (Auto) (45-73) % Lymph % (Auto) (20-40) % Harrison % (Auto) (2-11) % Eos % (Auto) (0-4) % Baso % (Auto) (0-2) % Lymph # (Auto) (1.2-4.9) X10*3/uL Harrison # (Auto) (0.1-1.2) X10*3/uL Eos # (Auto) (0.0-0.4) X10*3/uL Baso # (Auto) (0.0-0.2) X10*3/uL Abs Immat Gran (auto) (0.00-0.03) X10*3/uL Absolute Neuts (auto) (2.0-8.3) X10*3/uL Absolute Nucleated RBC (0.0-0.012) X10*3/uL Nucleated RBC % (auto) (0.0-0.2) /100WBC PT 11.2 (9.9-13.0) SEC INR 1.0 (0.9-1.1) APTT 37.6 (24.1-38.0) SEC Sodium 131 L (135-145) mmol/L Potassium 3.0 L D (3.3-5.1) mmol/L Chloride 95 L (96-108) mmol/L Carbon Dioxide 25 (22-29) mmol/L Anion Gap 14 (12-20) BUN 12 (9-16) mg/dL Creatinine 0.86 (0.5-1.4) mg/dL Estim Creat Clear Calc 96.7 Estimated GFR > 60 Random Glucose 144 H (60-115) mg/dL Calcium 8.9 (8.4-10.2) mg/dL Total Bilirubin 0.3 (0.0-1.0) mg/dL AST 11 (5-31) U/L ALT 10 (0-31) U/L Alkaline Phosphatase 130 H D (39-117) U/L Total Protein 6.8 (6.5-8.0) g/dL Albumin 4.4 (3.5-5.0) g/dL Urine Color Urine Appearance Urine pH (5.0-8.0) Ur Specific [place] (1.005-1.025) Urine Protein (NEG-TRACE) MG/DL Urine Glucose (UA) (NEG) MG/DL Urine Ketones (NEG) MG/DL Urine Blood (NEG) Urine Nitrite (NEG) Ur Leukocyte Esterase (NEG) Urine RBC (0) /HPF Urine WBC (0-4) /HPF Ur Squamous Epith Cells /LPF Amorphous Sediment /LPF Urine Bacteria /LPF Urine Test (NEGATIVE) Salicylates < 5.0 L (15-30) mg/dL Urine Opiates Screen (Not Detect) Urine Fentanyl Screen (Not Detect) Acetaminophen 53 H* (<30) mcg/mL Ur Barbiturates Screen (Not Detect) Ur Phencyclidine Scrn (Not Detect) Ur Amphetamines Screen (Not Detect) U Benzodiazepines Scrn (Not Detect) Urine Cocaine Screen (Not Detect) U Marijuana (THC) Screen (Not Detect) Ethyl Alcohol < 10 mg/dL 07/10/21 07/10/21 Range/Units 19:32 22:06 WBC (4.8-10.8) X10*3/uL RBC (4.20-5.50) X10*6/uL Hgb (12.0-16.0) g/dl Hct (37-47) % MCV (80-98) fL MCH (27.0-33.0) pg MCHC (31.0-35.0) g/dl RDW (11.0-16.0) % Plt Count (160-400) X10*3/uL MPV (9.4-12.3) fL Immature Gran % (Auto) (0.0-0.4) % Neut % (Auto) (45-73) % Lymph % (Auto) (20-40) % Harrison % (Auto) (2-11) % Eos % (Auto) (0-4) % Baso % (Auto) (0-2) % Lymph # (Auto) (1.2-4.9) X10*3/uL Harrison # (Auto) (0.1-1.2) X10*3/uL Eos # (Auto) (0.0-0.4) X10*3/uL Baso # (Auto) (0.0-0.2) X10*3/uL Abs Immat Gran (auto) (0.00-0.03) X10*3/uL Absolute Neuts (auto) (2.0-8.3) X10*3/uL Absolute Nucleated RBC (0.0-0.012) X10*3/uL Nucleated RBC % (auto) (0.0-0.2) /100WBC PT (9.9-13.0) SEC INR (0.9-1.1) APTT (24.1-38.0) SEC Sodium 134 L (135-145) mmol/L Potassium 2.7 L (3.3-5.1) mmol/L Chloride 99 (96-108) mmol/L Carbon Dioxide 23 (22-29) mmol/L Anion Gap 15 (12-20) BUN 12 (9-16) mg/dL Creatinine 1.09 (0.5-1.4) mg/dL Estim Creat Clear Calc 76.3 Estimated GFR 55 Random Glucose 144 H (60-115) mg/dL Calcium 8.7 (8.4-10.2) mg/dL Total Bilirubin 0.2 (0.0-1.0) mg/dL AST 9 (5-31) U/L ALT 10 (0-31) U/L Alkaline Phosphatase 106 (39-117) U/L Total Protein 6.1 L (6.5-8.0) g/dL Albumin 4.0 (3.5-5.0) g/dL Urine Color Urine Appearance Urine pH (5.0-8.0) Ur Specific [place] (1.005-1.025) Urine Protein (NEG-TRACE) MG/DL Urine Glucose (UA) (NEG) MG/DL Urine Ketones (NEG) MG/DL Urine Blood (NEG) Urine Nitrite (NEG) Ur Leukocyte Esterase (NEG) Urine RBC (0) /HPF Urine WBC (0-4) /HPF Ur Squamous Epith Cells /LPF Amorphous Sediment /LPF Urine Bacteria /LPF Urine Test (NEGATIVE) Salicylates < 5.0 L (15-30) mg/dL Urine Opiates Screen Not Detected (Not Detect) Urine Fentanyl Screen POSITIVE H (Not Detect) Acetaminophen 46 H (<30) mcg/mL Ur Barbiturates Screen Not Detected (Not Detect) Ur Phencyclidine Scrn Not Detected (Not Detect) Ur Amphetamines Screen Not Detected (Not Detect) U Benzodiazepines Scrn Not Detected (Not Detect) Urine Cocaine Screen Not Detected (Not Detect) U Marijuana (THC) Screen Not Detected (Not Detect) Ethyl Alcohol mg/dL Discharge Plan Discharge Prescriptions: No Action trazodone 150 mg tablet 150 mg PO BEDTIME RF: 0 polyethylene glycol 3350 [Miralax] 17 gram Powder In Packet 17 g PO DAILY PRN (Reason: Constipation) RF: 0 chlorpromazine 50 mg Tablet 50 mg PO DAILY PRN (Reason: Psychosis) RF: 0 metformin 500 mg tablet 1 tab PO BID RF: 0 atorvastatin 10 mg tablet 1 tab PO DAILY RF: 0 doxazosin 1 mg tablet 4 mg PO BEDTIME RF: 0 naltrexone 50 mg tablet 1 tab PO DAILY RF: 0 haloperidol 1 mg tablet 3 tab PO TID RF: 0 pantoprazole 40 mg tablet,delayed release (DR/EC) 1 tab PO BID RF: 0 benztropine 1 mg tablet 1 tab PO TID RF: 0 verapamil 240 mg tablet extended release 1 tab PO BEDTIME RF: 0 montelukast 10 mg tablet 1 tab PO BEDTIME RF: 0 lisinopril 5 mg tablet 1 tab PO DAILY RF: 0 ferrous sulfate 325 mg (65 mg iron) tablet,delayed release (DR/EC) 1 tab PO DAILY RF: 0 Flovent HFA 110 mcg/actuation HFA aerosol inhaler 2 puff inhalation BID RF: 0 norethindrone (contraceptive) [Deblitane] 0.35 mg Tablet 0.35 mg PO DAILY RF: 0 haloperidol decanoate 100 mg/mL solution 1 ml IM Q4W RF: 0 chlorpromazine 25 mg tablet 1 tab PO TID RF: 0 albuterol sulfate [Ventolin HFA] 90 mcg/actuation HFA aerosol inhaler 2 puff inhalation Q4H PRN (Reason: Shortness Of Breath) RF: 0 haloperidol decanoate 100 mg/mL solution 1 ml IM Q4W RF: 0
--- NOTE | 2021-07-10 19:09 | ECG_ITS ---
Test Reason : OVEDOSE Blood Pressure : / mmHG Vent. Rate : 113 BPM Atrial Rate : 113 BPM P-R Int : 206 ms QRS Dur : 092 ms QT Int : 320 ms P-R-T Axes : 047 033 047 degrees QTc Int : 438 ms Sinus tachycardia Nonspecific ST and T wave abnormality Abnormal ECG When compared with ECG of 15-JUN-2021 19:10, Nonspecific T wave abnormality now evident in Lateral leads Heart rate has increased Referred By: Evan Silver Electronically Signed By:JESU EASTMAN
[2021-07-10 19:11] VITALS: BP 132/82; PULSE 130; O2SAT 98
[2021-07-10 19:28] LABS: Appearance Urine CLEAR; Color Urine STRAW; Glucose Urine UA NEG (NEG); Leukocyte Esterase Urine NEG (NEG); Nitrite Urine NEG (NEG); Specific Gravity - Urine <= 1.005 (1.005-1.025); Urine Blood NEG (NEG); Urine Ketones NEG (NEG); Urine Protein NEG (NEG-TRACE)
[2021-07-10 19:30] LABS: UPreg QC Valid YES; Urine Pregnancy NEGATIVE (NEGATIVE)
[2021-07-10 19:38] LABS: Amorphous Sediment Urine TRACE /LPF; Bacteria Urine TRACE /LPF; RBC Urine 0 /HPF (0); Squamous Epithelial Cell Urine 1+ /LPF; WBC Urine 0-2 /HPF (0-4)
[2021-07-10 19:39] LABS: MANUAL DIFF FLAG NO
[2021-07-10 19:40] LABS: Basophils Percent Auto 0.2 % (0-2); Eosinophils Absolute Auto 0.2 X10*3/uL (0.0-0.4); Eosinophils Percent Auto 1.8 % (0-4); Hematocrit 36.9 % (37-47); Imm Gran Abs Auto 0.05 X10*3/uL (0.00-0.03); Imm Gran Pct Auto 0.5 % (0.0-0.4); Lymphocytes Absolute Auto 2.1 X10*3/uL (1.2-4.9); Lymphocytes Percent Auto 20.8 % (20-40); Mean Corpuscular HGB Conc 35.2 g/dl (31.0-35.0); Mean Corpuscular Hemoglobin 31.2 pg (27.0-33.0); Mean Corpuscular Volume 88.5 fL (80-98); Mean Platelet Volume 9.6 fL (9.4-12.3); Monocytes Absolute Auto 0.8 X10*3/uL (0.1-1.2); Monocytes Percent Auto 7.8 % (2-11); Neutrophils Absolute Auto 7.1 X10*3/uL (2.0-8.3); Neutrophils Percent Auto 68.9 % (45-73); Platelet Count 276 X10*3/uL (160-400); Red Blood Count 4.17 X10*6/uL (4.20-5.50); White Blood Count 10.3 X10*3/uL (4.8-10.8)
[2021-07-10 19:44] VITALS: BP 145/87; PULSE 114; RESP 18; TEMP 37.1; O2SAT 95; BMI 35.2
[2021-07-10 19:47] LABS: Prothrombin Time 11.2 SEC (9.9-13.0)
[2021-07-10 19:50] LABS: Partial Thromboplastin Time 37.6 SEC (24.1-38.0)
[2021-07-10] MEDS: ondansetron HCL 4 MG/2 ML VIAL IVPUSH (19:55)
[2021-07-10] MEDS: 0.9 % Sodium Chloride 1,000 ML 999 ML IV (19:55)
[2021-07-10] MEDS: Activated charcoaL 50 GM/240 ML ORAL.SUSP 100 GM PO (19:56)
[2021-07-10 19:59] LABS: Ethanol < 10 mg/dL
[2021-07-10 19:59] LABS: Amphetamine Screen Urine Not Detected (Not Detect); Barbiturates, Urine Not Detected (Not Detect); Benzodiazepines Screen Urine Not Detected (Not Detect); Cannabinoid Screen Urine Not Detected (Not Detect); Cocaine Screen Urine Not Detected (Not Detect); Fentanyl, urine POSITIVE (Not Detect); Opiate Screen Urine Not Detected (Not Detect); Phencyclidine Screen Urine Not Detected (Not Detect)
[2021-07-10 20:00] VITALS: BP 135/85; PULSE 105; RESP 20; TEMP 36.6; O2SAT 96
[2021-07-10 20:06] LABS: Acetaminophen LAB 53 mcg/mL (<30); Alanine Aminotransferase 10 U/L (0-31); Albumin Level 4.4 g/dL (3.5-5.0); Alkaline Phosphatase 130 U/L (39-117); Anion Gap 14 (12-20); Aspartate Amino Transferase 11 U/L (5-31); Bilirubin Total 0.3 mg/dL (0.0-1.0); Blood Urea Nitrogen 12 mg/dL (9-16); Calcium 8.9 mg/dL (8.4-10.2); Carbon Dioxide 25 mmol/L (22-29); Chloride 95 mmol/L (96-108); Creatinine Clr Calc Pharmacy 96.7; Estimated Glomerular Filt Rate > 60; Glucose Random 144 mg/dL (60-115); Salicylate < 5.0 mg/dL (15-30); Sodium 131 mmol/L (135-145); Total Protein 6.8 g/dL (6.5-8.0)
--- NOTE | 2021-07-10 20:10 | PC.NURSE ---
Poison control center contacted. Advised of OD amount, initial labs, vitals, EKG. Will repeat at 2300 and re-contact poison control. Pt remains awake and alert at this time, attached to cardiac rehabilitation specialist and pulse ox, 1:[address]
[2021-07-10 21:42] VITALS: BP 125/84; PULSE 105; RESP 19; O2SAT 95
[2021-07-10 22:01] VITALS: BP 131/83; PULSE 109; RESP 22; O2SAT 96
[2021-07-10 22:51] LABS: Acetaminophen LAB 46 mcg/mL (<30); Alanine Aminotransferase 10 U/L (0-31); Alkaline Phosphatase 106 U/L (39-117); Anion Gap 15 (12-20); Aspartate Amino Transferase 9 U/L (5-31); Bilirubin Total 0.2 mg/dL (0.0-1.0); Blood Urea Nitrogen 12 mg/dL (9-16); Calcium 8.7 mg/dL (8.4-10.2); Carbon Dioxide 23 mmol/L (22-29); Chloride 99 mmol/L (96-108); Creatinine Clr Calc Pharmacy 76.3; Estimated Glomerular Filt Rate 55; Glucose Random 144 mg/dL (60-115); Potassium 2.7 mmol/L (3.3-5.1); Salicylate < 5.0 mg/dL (15-30); Sodium 134 mmol/L (135-145); Total Protein 6.1 g/dL (6.5-8.0)
--- NOTE | 2021-07-10 23:00 | ECG_ITS ---
Test Reason : REPEAT Blood Pressure : / mmHG Vent. Rate : 111 BPM Atrial Rate : 111 BPM P-R Int : 202 ms QRS Dur : 094 ms QT Int : 332 ms P-R-T Axes : 043 040 060 degrees QTc Int : 451 ms Sinus tachycardia Nonspecific ST and T wave abnormality Abnormal ECG When compared with ECG of 10-JUL-2021 19:36, No significant change was found Referred By: Evan Silver Electronically Signed By:JESU EASTMAN
[2021-07-11 00:59] VITALS: BP 138/86; PULSE 107; RESP 18; O2SAT 95
--- NOTE | 2021-07-11 01:41 | ED.OVERDOSE ---
HPI - Overdose General Chief Complaint: Overdose <Evan Silver NP - Last Filed: 07/12/21 01:51> Stated Complaint: SI ATTEMPT BY OD OF TYLENOL <Evan Silver NP - Last Filed: 07/12/21 01:51> Time Seen by Provider: 07/10/21 19:08 <Evan Silver NP - Last Filed: 07/12/21 01:51> Source: EMS <Evan Silver NP - Last Filed: 07/12/21 01:51> Mode of arrival: EMS <Evan Silver NP - Last Filed: 07/12/21 01:51> Limitations: no limitations <Evan Silver NP - Last Filed: 07/12/21 01:51> History of Present Illness HPI Narrative: Unfortunate 45-year-old female who is very well-known to this facility she has extensive history of psychiatric problems including history of PTSD, borderline personality disorder, mood disorder, hyperlipidemia, gastroesophageal reflux disease, multiple prior overdoses who presents via EMS from the [facility] after she called for assistance after taking 24 tablets of 500 mg of Tylenol after which she says the voices in her head with telling her to do this to harm herself. States she is having increased voices in her head and thoughts of her disease father. She otherwise denies any alcohol or drug use. She does admit the incident of her taking his Tylenol occurred 1 hour prior to arrival. <Evan Silver NP - Last Filed: 07/12/21 01:51> MD complaint: intentional overdose <Evan Silver NP - Last Filed: 07/12/21 01:51> Onset (ago): hour(s) <Evan Silver NP - Last Filed: 07/12/21 01:51> Timing confirmed by: other (Staff) <Evan Silver NP - Last Filed: 07/12/21 01:51> Intent: suicide attempt <Evan Silver NP - Last Filed: 07/12/21 01:51> How Overdose Was Discovered: called family/friend <Evan Silver NP - Last Filed: 07/12/21 01:51> Treatments Prior to Arrival: none <Evan Silver NP - Last Filed: 07/12/21 01:51> Related Data Home Medications: Home Medications Medication Instructions Recorded Confirmed trazodone 150 mg tablet 150 mg PO BEDTIME 01/27/21 07/11/21 polyethylene glycol 3350 17 gram 17 g PO DAILY PRN 02/12/21 07/11/21 oral powder packet (Miralax) chlorpromazine 50 mg tablet 50 mg PO DAILY PRN 05/02/21 07/11/21 atorvastatin 10 mg tablet 1 tab PO DAILY 05/29/21 07/11/21 benztropine 1 mg tablet 1 tab PO TID 05/29/21 07/11/21 doxazosin 1 mg tablet 4 mg PO BEDTIME 05/29/21 07/11/21 ferrous sulfate 325 mg (65 mg 1 tab PO DAILY 05/29/21 07/11/21 iron) tablet,delayed release fluticasone propionate 110 2 puff INHALATION BID 05/29/21 07/11/21 mcg/actuation HFA aerosol inhaler (Flovent HFA) haloperidol 1 mg tablet 3 tab PO TID 05/29/21 07/11/21 haloperidol decanoate 100 mg/mL 1 ml IM Q4W 05/29/21 07/11/21 intramuscular solution lisinopril 5 mg tablet 1 tab PO DAILY 05/29/21 07/11/21 metformin 500 mg tablet 1 tab PO BID 05/29/21 07/11/21 montelukast 10 mg tablet 1 tab PO BEDTIME 05/29/21 07/11/21 norethindrone (contraceptive) 0.35 0.35 mg PO DAILY 05/29/21 07/11/21 mg tablet (Deblitane) pantoprazole 40 mg tablet,delayed 1 tab PO BID 05/29/21 07/11/21 release verapamil 240 mg tablet,extended 1 tab PO BEDTIME 05/29/21 07/11/21 release albuterol sulfate 90 mcg/actuation 2 puff INHALATION Q4H PRN 06/15/21 07/11/21 aerosol inhaler (Ventolin HFA) <Evan Silver NP - Last Filed: 07/12/21 01:51> Allergies/Adverse Reactions: Allergies Allergy/AdvReac Type Severity Reaction Status Date / Time Fish Containing Products Allergy Severe ANAPHYLAXIS Verified 06/15/21 17:06 codeine [Codeine] Allergy Unknown RASH Verified 06/15/21 17:06 Penicillins Allergy Unknown RASH Verified 06/15/21 17:06 prednisone [Prednisone] Allergy Unknown RASH Verified 06/15/21 17:06 Sulfa (Sulfonamide Allergy Unknown RASH Verified 06/15/21 17:06 Antibiotics) [Sulfa (Sulfonamides)] azithromycin [AZITHROMYCIN] AdvReac Severe RASH Verified 06/15/21 17:06 nicotine AdvReac Unknown HEART Verified 06/15/21 17:06 PALPITATION TO NICOTINE GUM Seafood Allergy Severe ANAPHYLAXIS Uncoded 07/01/20 16:44 From Geodon Allergy Unknown DYSURIA, Uncoded 07/01/20 16:44 RASH <Evan Silver NP - Last Filed: 07/12/21 01:51> Review of Systems Review of Systems: Constitutional: No Weight loss, No Fever, No Chills, No Night Sweats, No Fatigue, No Malaise ENT/Mouth: No Hearing loss, No Ear Pain, No Nasal Congestion, No Sinus Pain, No Hoarseness, No sore throat, No Rhinorrhea, No Swallowing Difficulty Eyes: No Eye Pain, No Swelling, No Redness, No Foreign Body, No Discharge, No Vision Changes Cardiovascular: No Chest Pain, No SOB, No Dyspnea on Exertion, No Orthopnea, No Edema, No Palpitations Respiratory: No Cough, No Sputum, No Wheezing, No Smoke Exposure, No Dyspnea Gastrointestinal: No Nausea, No Vomiting, No Diarrhea, No Constipation, No abdominal Pain, No Hematochezia, No Melena Genitourinary: no irregular bleeding, No Dysuria, No Urinary Frequency, No Hematuria, No Urinary Incontinence, No Urgency, No Flank Pain, No Urinary Flow Changes, No Hesitancy Musculoskeletal: No joint pain, No Myalgias, No Joint Swelling Skin: No Skin Lesions, No rash Neuro: No Weakness, No Numbness, No Paresthesias, No Loss of Consciousness, No Dizziness, No Headache Psych: As noted per HPI Heme/Lymph: No Bruising, No Bleeding,No Lymphadenopathy Endocrine: No Polyuria, No Polydipsia, No Temperature Intolerance <Evan Silver NP - Last Filed: 07/12/21 01:51> Yes all other systems are reviewed and are negative <Evan Silver NP - Last Filed: 07/12/21 01:51> [facility] Past Medical History Medical History: Medical History (Updated 07/12/21 @ 00:01 by Juventino Light RN) Bronchitis Diabetes type 2, controlled GERD (gastroesophageal reflux disease) Hyperlipidemia Mood disorder Overdose PTSD (post-traumatic stress disorder) <Evan Silver NP - Last Filed: 07/12/21 01:51> Social History Social History: Social History 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: Other 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 Other:: pt lives in shelter with 3 other peers Housing: House Housing Other:: [facility] Do you presently have visiting nurse or other home services: Yes (pt has VNA for haldol IM) Alcohol intake: never Patient Tobacco Use Status: Current everyday Tobacco user Tobacco use type: Cigarette Cigarette Packs Per Day: 1 Cigarettes Per Day: 20.0 Years Smoked: 20 Smoked in Last 30 Days: Yes e-Cigarette/Vaping Use: Never Used Patient Interested in Nicotine Replacement: Yes (Pt wants nicotine patch 21mg; says gum is ineffective) Patient Given Instructions on How to Stop Smoking: Yes Date Education Initiated: 07/12/21 Second Hand Smoke Exposure: Yes Use of substances other than those prescribed or required for medical reasons: No Substance Use Type: Caffiene Currently Displaying Signs/Symptoms of Drug Intoxication Withdrawal: No Other Past Substance Use Problem:: Pt denies current drug use; positive for fentanyl Any prior treatment program specific to substance use: No Have you been hit, kicked, punched, or otherwise hurt by someone within the past year? If so, by whom?: No Do you feel safe in your current relationship?: No Current Relationship Is there a partner from a previous relationship who is making you feel unsafe now?: No Are you made to feel afraid or neglected: No Spiritual Healthcare Practices: None Hoahaoism Healthcare Practices: None Cultural Healthcare Practices: None Advance Directives: No Advance Directives Information Provided: No Advance Directives on File: No Do you have thoughts of harming others: None Do you have a plan to hurt others: No Plan Recently lost weight without trying: Unsure Eating poorly because of decreased appetite: Yes Nutrition Risks: No Nutritional Risk and Difficulty chewing Patient : No : No Poor oral hygiene: No (Pt said not brushing. Pt has no teeth; her false teeth are too big) service: No Sexual orientation: Don't Know <Evan Silver NP - Last Filed: 07/12/21 01:51> Physical Exam Vital Signs: Vital Signs: Last Vital Signs Temp 98.6 F 07/11/21 10:33 Pulse 97 07/11/21 23:54 Resp 16 07/11/21 10:33 BP 137/77 07/11/21 23:54 Pulse Ox 97 07/11/21 10:33 Body Mass Index 35.2 <Evan Silver NP - Last Filed: 07/12/21 01:51> Vital Signs: Last Vital Signs Temp 98.6 F 07/11/21 10:33 Pulse 97 07/11/21 23:54 Resp 16 07/11/21 10:33 BP 137/77 07/11/21 23:54 Pulse Ox 97 07/11/21 10:33 Body Mass Index 35.2 <TIMI Dong - Last Filed: 07/11/21 08:39> Const: General: cooperative and other (Anxious appearing); No acute distress or intoxicated appearing <Evan Silver NP - Last Filed: 07/12/21 01:51> Nutritional Appearance: average body habitus <Evan Silver NP - Last Filed: 07/12/21 01:51> Orientation/consciousness: patient oriented x3 <Evan Silver NP - Last Filed: 07/12/21 01:51> HENMT: Head: Yes normal to inspection <Evan Silver NP - Last Filed: 07/12/21 01:51> Ears: hearing grossly normal bilaterally <Evan Silver NP - Last Filed: 07/12/21 01:51> Eyes: General: appearance normal, both eyes and all related structures <Evan Silver NP - Last Filed: 07/12/21 01:51> Visual Williamson: normal visual williamson by confrontation <Evan Silver NP - Last Filed: 07/12/21 01:51> Neck: Neck: Yes normal visual inspection, No positive Brudzinski's sign, No positive Kernig's sign and No tender <Evan Silver NP - Last Filed: 07/12/21 01:51> Thyroid: Thyroid normal <Evan Silver NP - Last Filed: 07/12/21 01:51> Chest: Chest palpation & inspection: normal inspection of the chest <Evan Silver [facility] Last Filed: 07/12/21 01:51> Resp: Effort & Inspection: normal respiratory effort <Evan Silver [facility] Last Filed: 07/12/21 01:51> Cardio: Jugular venous distension: no JVD <[facility] Nadeem [facility] Last Filed: 07/12/21 01:51> Rate: regular rate <[facility] Nadeem [facility] Last Filed: 07/12/21 01:51> Rhythm: regular rhythm <[facility] Nadeem [facility] Last Filed: 07/12/21 01:51> Heart sounds: S1 normal heart sound present and S2 normal heart sound present <[facility] Nadeem [facility] Last Filed: 07/12/21 01:51> GI: Inspection: Yes normal to inspection <[facility] Nadeem [facility] Last Filed: 07/12/21 01:51> Palpation (GI): Soft to palpation <[facility] Nadeem [facility] Last Filed: 07/12/21 01:51> Percussion: Yes normal to percussion <[facility] Nadeem [facility] Last Filed: 07/12/21 01:51> Auscultation: normal bowel sounds <[facility] Nadeem [facility] Last Filed: 07/12/21 01:51> : General: Yes no CVA tenderness <[facility] Nadeem [facility] Last Filed: 07/12/21 01:51> Back/Spine/Pelvis: Back: no CVA tenderness <[facility] Nadeem [facility] Last Filed: 07/12/21 01:51> Skin: General skin exam: no rashes or lesions noted [facility] Last Filed: 07/12/21 01:51> Neuro: General: patient oriented x3 <[facility] Nadeem [facility] Last Filed: 07/12/21 01:51> Extrem: General: Yes normal to inspection <[facility] Nadeem [facility] Last Filed: 07/12/21 01:51> Course Reevaluation(s) Reevaluation #1: Will check labs, Tylenol/salicylate level long with tox screen. Will obtain EKG. Activated charcoal and poison control consult. Will check peak levels at 4 hours is greater than 140 for acetaminophen will treat. Calm and cooperative at this time safety checks and once medically cleared will obtain crisis evaluation for <Evan Silver NP - Last Filed: 07/12/21 01:51> Reevaluation #2: 22:00 patient remains calm cooperative in no acute distress. Left shows slight hypokalemia which was repleted otherwise initial acetaminophen was 53 and repeat at 04:00 hours 46. Negative alcohol. Toxicology screen also shows positive for urine fentanyl. Will obtain crisis evaluation. Patient this time is stable, vitals are stable in no acute distress. Patient placed on physician observation as patient requires more time for observation and crisis evaluation. <Evan Silver NP - Last Filed: 07/12/21 01:51> Reevaluation #3: Physician observation continued. Patient vital signs are stable. Patient is not in any distress. Patient has a bed search <TIMI Dong - Last Filed: 07/11/21 08:39> Time: 08:39 <TIMI Dong - Last Filed: 07/11/21 08:39> MDM - Overdose Differential Diagnosis Differential diagnosis: Likely accidental drug ingestion (Depression, auditory hallucination, command hallucination, mood disorder, anxiety) <Evan Silver NP - Last Filed: 07/12/21 01:51> Medical Records Attestation: I reviewed the patient's medical records. <Evan Silver NP - Last Filed: 07/12/21 01:51> Lab Data Attestation: I reviewed the patient's lab results. <Evan Silver NP - Last Filed: 07/12/21 01:51> Result diagrams: : 07/10/21 19:31 07/10/21 22:06 <Evan Silver NP - Last Filed: 07/12/21 01:51> Labs: Lab Results 07/10/21 07/10/21 07/10/21 Range/Units 19:22 19:22 19:31 WBC 10.3 (4.8-10.8) X10*3/uL RBC 4.17 L (4.20-5.50) X10*6/uL Hgb 13.0 (12.0-16.0) g/dl Hct 36.9 L (37-47) % MCV 88.5 (80-98) fL MCH 31.2 (27.0-33.0) pg MCHC 35.2 H (31.0-35.0) g/dl RDW 12.0 (11.0-16.0) % Plt Count 276 (160-400) X10*3/uL MPV 9.6 (9.4-12.3) fL Immature Gran % (Auto) 0.5 H (0.0-0.4) % Neut % (Auto) 68.9 (45-73) % Lymph % (Auto) 20.8 (20-40) % Mccormick % (Auto) 7.8 (2-11) % Eos % (Auto) 1.8 (0-4) % Baso % (Auto) 0.2 (0-2) % Lymph # (Auto) 2.1 (1.2-4.9) X10*3/uL Mccormick # (Auto) 0.8 (0.1-1.2) X10*3/uL Eos # (Auto) 0.2 (0.0-0.4) X10*3/uL Baso # (Auto) 0.0 (0.0-0.2) X10*3/uL Abs Immat Gran (auto) 0.05 H (0.00-0.03) X10*3/uL Absolute Neuts (auto) 7.1 (2.0-8.3) X10*3/uL Absolute Nucleated RBC 0.000 (0.0-0.012) X10*3/uL Nucleated RBC % (auto) 0.0 (0.0-0.2) /100WBC PT (9.9-13.0) SEC INR (0.9-1.1) APTT (24.1-38.0) SEC Sodium (135-145) mmol/L Potassium (3.3-5.1) mmol/L Chloride (96-108) mmol/L Carbon Dioxide (22-29) mmol/L Anion Gap (12-20) BUN (9-16) mg/dL Creatinine (0.5-1.4) mg/dL Estim Creat Clear Calc Estimated GFR Random Glucose (60-115) mg/dL Calcium (8.4-10.2) mg/dL Total Bilirubin (0.0-1.0) mg/dL AST (5-31) U/L ALT (0-31) U/L Alkaline Phosphatase (39-117) U/L Total Protein (6.5-8.0) g/dL Albumin (3.5-5.0) g/dL Urine Color STRAW Urine Appearance CLEAR Urine pH 6.0 (5.0-8.0) Ur Specific Peculiar <= 1.005 (1.005-1.025) Urine Protein NEG (NEG-TRACE) MG/DL Urine Glucose (UA) NEG (NEG) MG/DL Urine Ketones NEG (NEG) MG/DL Urine Blood NEG (NEG) Urine Nitrite NEG (NEG) Ur Leukocyte Esterase NEG (NEG) Urine RBC 0 (0) /HPF Urine WBC 0-2 (0-4) /HPF Ur Squamous Epith Cells 1+ /LPF Amorphous Sediment TRACE /LPF Urine Bacteria TRACE /LPF Urine Test NEGATIVE (NEGATIVE) Salicylates (15-30) mg/dL Urine Opiates Screen (Not Detect) Urine Fentanyl Screen (Not Detect) Acetaminophen (<30) mcg/mL Ur Barbiturates Screen (Not Detect) Ur Phencyclidine Scrn (Not Detect) Ur Amphetamines Screen (Not Detect) U Benzodiazepines Scrn (Not Detect) Urine Cocaine Screen (Not Detect) U Marijuana (THC) Screen (Not Detect) Ethyl Alcohol mg/dL 07/10/21 07/10/21 07/10/21 Range/Units 19:31 19:31 19:31 WBC (4.8-10.8) X10*3/uL RBC (4.20-5.50) X10*6/uL Hgb (12.0-16.0) g/dl Hct (37-47) % MCV (80-98) fL MCH (27.0-33.0) pg MCHC (31.0-35.0) g/dl RDW (11.0-16.0) % Plt Count (160-400) X10*3/uL MPV (9.4-12.3) fL Immature Gran % (Auto) (0.0-0.4) % Neut % (Auto) (45-73) % Lymph % (Auto) (20-40) % Mccormick % (Auto) (2-11) % Eos % (Auto) (0-4) % Baso % (Auto) (0-2) % Lymph # (Auto) (1.2-4.9) X10*3/uL Mccormick # (Auto) (0.1-1.2) X10*3/uL Eos # (Auto) (0.0-0.4) X10*3/uL Baso # (Auto) (0.0-0.2) X10*3/uL Abs Immat Gran (auto) (0.00-0.03) X10*3/uL Absolute Neuts (auto) (2.0-8.3) X10*3/uL Absolute Nucleated RBC (0.0-0.012) X10*3/uL Nucleated RBC % (auto) (0.0-0.2) /100WBC PT 11.2 (9.9-13.0) SEC INR 1.0 (0.9-1.1) APTT 37.6 (24.1-38.0) SEC Sodium 131 L (135-145) mmol/L Potassium 3.0 L D (3.3-5.1) mmol/L Chloride 95 L (96-108) mmol/L Carbon Dioxide 25 (22-29) mmol/L Anion Gap 14 (12-20) BUN 12 (9-16) mg/dL Creatinine 0.86 (0.5-1.4) mg/dL Estim Creat Clear Calc 96.7 Estimated GFR > 60 Random Glucose 144 H (60-115) mg/dL Calcium 8.9 (8.4-10.2) mg/dL Total Bilirubin 0.3 (0.0-1.0) mg/dL AST 11 (5-31) U/L ALT 10 (0-31) U/L Alkaline Phosphatase 130 H D (39-117) U/L Total Protein 6.8 (6.5-8.0) g/dL Albumin 4.4 (3.5-5.0) g/dL Urine Color Urine Appearance Urine pH (5.0-8.0) Ur Specific Peculiar (1.005-1.025) Urine Protein (NEG-TRACE) MG/DL Urine Glucose (UA) (NEG) MG/DL Urine Ketones (NEG) MG/DL Urine Blood (NEG) Urine Nitrite (NEG) Ur Leukocyte Esterase (NEG) Urine RBC (0) /HPF Urine WBC (0-4) /HPF Ur Squamous Epith Cells /LPF Amorphous Sediment /LPF Urine Bacteria /LPF Urine Test (NEGATIVE) Salicylates < 5.0 L (15-30) mg/dL Urine Opiates Screen (Not Detect) Urine Fentanyl Screen (Not Detect) Acetaminophen 53 H* (<30) mcg/mL Ur Barbiturates Screen (Not Detect) Ur Phencyclidine Scrn (Not Detect) Ur Amphetamines Screen (Not Detect) U Benzodiazepines Scrn (Not Detect) Urine Cocaine Screen (Not Detect) U Marijuana (THC) Screen (Not Detect) Ethyl Alcohol < 10 mg/dL 07/10/21 07/10/21 Range/Units 19:32 22:06 WBC (4.8-10.8) X10*3/uL RBC (4.20-5.50) X10*6/uL Hgb (12.0-16.0) g/dl Hct (37-47) % MCV (80-98) fL MCH (27.0-33.0) pg MCHC (31.0-35.0) g/dl RDW (11.0-16.0) % Plt Count (160-400) X10*3/uL MPV (9.4-12.3) fL Immature Gran % (Auto) (0.0-0.4) % Neut % (Auto) (45-73) % Lymph % (Auto) (20-40) % Mccormick % (Auto) (2-11) % Eos % (Auto) (0-4) % Baso % (Auto) (0-2) % Lymph # (Auto) (1.2-4.9) X10*3/uL Mccormick # (Auto) (0.1-1.2) X10*3/uL Eos # (Auto) (0.0-0.4) X10*3/uL Baso # (Auto) (0.0-0.2) X10*3/uL Abs Immat Gran (auto) (0.00-0.03) X10*3/uL Absolute Neuts (auto) (2.0-8.3) X10*3/uL Absolute Nucleated RBC (0.0-0.012) X10*3/uL Nucleated RBC % (auto) (0.0-0.2) /100WBC PT (9.9-13.0) SEC INR (0.9-1.1) APTT (24.1-38.0) SEC Sodium 134 L (135-145) mmol/L Potassium 2.7 L (3.3-5.1) mmol/L Chloride 99 (96-108) mmol/L Carbon Dioxide 23 (22-29) mmol/L Anion Gap 15 (12-20) BUN 12 (9-16) mg/dL Creatinine 1.09 (0.5-1.4) mg/dL Estim Creat Clear Calc 76.3 Estimated GFR 55 Random Glucose 144 H (60-115) mg/dL Calcium 8.7 (8.4-10.2) mg/dL Total Bilirubin 0.2 (0.0-1.0) mg/dL AST 9 (5-31) U/L ALT 10 (0-31) U/L Alkaline Phosphatase 106 (39-117) U/L Total Protein 6.1 L (6.5-8.0) g/dL Albumin 4.0 (3.5-5.0) g/dL Urine Color Urine Appearance Urine pH (5.0-8.0) Ur Specific Peculiar (1.005-1.025) Urine Protein (NEG-TRACE) MG/DL Urine Glucose (UA) (NEG) MG/DL Urine Ketones (NEG) MG/DL Urine Blood (NEG) Urine Nitrite (NEG) Ur Leukocyte Esterase (NEG) Urine RBC (0) /HPF Urine WBC (0-4) /HPF Ur Squamous Epith Cells /LPF Amorphous Sediment /LPF Urine Bacteria /LPF Urine Test (NEGATIVE) Salicylates < 5.0 L (15-30) mg/dL Urine Opiates Screen Not Detected (Not Detect) Urine Fentanyl Screen POSITIVE H (Not Detect) Acetaminophen 46 H (<30) mcg/mL Ur Barbiturates Screen Not Detected (Not Detect) Ur Phencyclidine Scrn Not Detected (Not Detect) Ur Amphetamines Screen Not Detected (Not Detect) U Benzodiazepines Scrn Not Detected (Not Detect) Urine Cocaine Screen Not Detected (Not Detect) U Marijuana (THC) Screen Not Detected (Not Detect) Ethyl Alcohol mg/dL <Evan Silver NP - Last Filed: 07/12/21 01:51> Lab Results 09/07/10/21 07/10/21 Range/Units 19:22 19:22 19:31 WBC 10.3 (4.8-10.8) X10*3/uL RBC 4.17 L (4.20-5.50) X10*6/uL Hgb 13.0 (12.0-16.0) g/dl Hct 36.9 L (37-47) % MCV 88.5 (80-98) fL MCH 31.2 (27.0-33.0) pg MCHC 35.2 H (31.0-35.0) g/dl RDW 12.0 (11.0-16.0) % Plt Count 276 (160-400) X10*3/uL MPV 9.6 (9.4-12.3) fL Immature Gran % (Auto) 0.5 H (0.0-0.4) % Neut % (Auto) 68.9 (45-73) % Lymph % (Auto) 20.8 (20-40) % Mccormick % (Auto) 7.8 (2-11) % Eos % (Auto) 1.8 (0-4) % Baso % (Auto) 0.2 (0-2) % Lymph # (Auto) 2.1 (1.2-4.9) X10*3/uL Mccormick # (Auto) 0.8 (0.1-1.2) X10*3/uL Eos # (Auto) 0.2 (0.0-0.4) X10*3/uL Baso # (Auto) 0.0 (0.0-0.2) X10*3/uL Abs Immat Gran (auto) 0.05 H (0.00-0.03) X10*3/uL Absolute Neuts (auto) 7.1 (2.0-8.3) X10*3/uL Absolute Nucleated RBC 0.000 (0.0-0.012) X10*3/uL Nucleated RBC % (auto) 0.0 (0.0-0.2) /100WBC PT (9.9-13.0) SEC INR (0.9-1.1) APTT (24.1-38.0) SEC Sodium (135-145) mmol/L Potassium (3.3-5.1) mmol/L Chloride (96-108) mmol/L Carbon Dioxide (22-29) mmol/L Anion Gap (12-20) BUN (9-16) mg/dL Creatinine (0.5-1.4) mg/dL Estim Creat Clear Calc Estimated GFR Random Glucose (60-115) mg/dL Calcium (8.4-10.2) mg/dL Total Bilirubin (0.0-1.0) mg/dL AST (5-31) U/L ALT (0-31) U/L Alkaline Phosphatase (39-117) U/L Total Protein (6.5-8.0) g/dL Albumin (3.5-5.0) g/dL Urine Color STRAW Urine Appearance CLEAR Urine pH 6.0 (5.0-8.0) Ur Specific Peculiar <= 1.005 (1.005-1.025) Urine Protein NEG (NEG-TRACE) MG/DL Urine Glucose (UA) NEG (NEG) MG/DL Urine Ketones NEG (NEG) MG/DL Urine Blood NEG (NEG) Urine Nitrite NEG (NEG) Ur Leukocyte Esterase NEG (NEG) Urine RBC 0 (0) /HPF Urine WBC 0-2 (0-4) /HPF Ur Squamous Epith Cells 1+ /LPF Amorphous Sediment TRACE /LPF Urine Bacteria TRACE /LPF Urine Test NEGATIVE (NEGATIVE) Salicylates (15-30) mg/dL Urine Opiates Screen (Not Detect) Urine Fentanyl Screen (Not Detect) Acetaminophen (<30) mcg/mL Ur Barbiturates Screen (Not Detect) Ur Phencyclidine Scrn (Not Detect) Ur Amphetamines Screen (Not Detect) U Benzodiazepines Scrn (Not Detect) Urine Cocaine Screen (Not Detect) U Marijuana (THC) Screen (Not Detect) Ethyl Alcohol mg/dL 07/10/21 07/10/21 07/10/21 Range/Units 19:31 19:31 19:31 WBC (4.8-10.8) X10*3/uL RBC (4.20-5.50) X10*6/uL Hgb (12.0-16.0) g/dl Hct (37-47) % MCV (80-98) fL MCH (27.0-33.0) pg MCHC (31.0-35.0) g/dl RDW (11.0-16.0) % Plt Count (160-400) X10*3/uL MPV (9.4-12.3) fL Immature Gran % (Auto) (0.0-0.4) % Neut % (Auto) (45-73) % Lymph % (Auto) (20-40) % Mccormick % (Auto) (2-11) % Eos % (Auto) (0-4) % Baso % (Auto) (0-2) % Lymph # (Auto) (1.2-4.9) X10*3/uL Mccormick # (Auto) (0.1-1.2) X10*3/uL Eos # (Auto) (0.0-0.4) X10*3/uL Baso # (Auto) (0.0-0.2) X10*3/uL Abs Immat Gran (auto) (0.00-0.03) X10*3/uL Absolute Neuts (auto) (2.0-8.3) X10*3/uL Absolute Nucleated RBC (0.0-0.012) X10*3/uL Nucleated RBC % (auto) (0.0-0.2) /100WBC PT 11.2 (9.9-13.0) SEC INR 1.0 (0.9-1.1) APTT 37.6 (24.1-38.0) SEC Sodium 131 L (135-145) mmol/L Potassium 3.0 L D (3.3-5.1) mmol/L Chloride 95 L (96-108) mmol/L Carbon Dioxide 25 (22-29) mmol/L Anion Gap 14 (12-20) BUN 12 (9-16) mg/dL Creatinine 0.86 (0.5-1.4) mg/dL Estim Creat Clear Calc 96.7 Estimated GFR > 60 Random Glucose 144 H (60-115) mg/dL Calcium 8.9 (8.4-10.2) mg/dL Total Bilirubin 0.3 (0.0-1.0) mg/dL AST 11 (5-31) U/L ALT 10 (0-31) U/L Alkaline Phosphatase 130 H D (39-117) U/L Total Protein 6.8 (6.5-8.0) g/dL Albumin 4.4 (3.5-5.0) g/dL Urine Color Urine Appearance Urine pH (5.0-8.0) Ur Specific Peculiar (1.005-1.025) Urine Protein (NEG-TRACE) MG/DL Urine Glucose (UA) (NEG) MG/DL Urine Ketones (NEG) MG/DL Urine Blood (NEG) Urine Nitrite (NEG) Ur Leukocyte Esterase (NEG) Urine RBC (0) /HPF Urine WBC (0-4) /HPF Ur Squamous Epith Cells /LPF Amorphous Sediment /LPF Urine Bacteria /LPF Urine Test (NEGATIVE) Salicylates < 5.0 L (15-30) mg/dL Urine Opiates Screen (Not Detect) Urine Fentanyl Screen (Not Detect) Acetaminophen 53 H* (<30) mcg/mL Ur Barbiturates Screen (Not Detect) Ur Phencyclidine Scrn (Not Detect) Ur Amphetamines Screen (Not Detect) U Benzodiazepines Scrn (Not Detect) Urine Cocaine Screen (Not Detect) U Marijuana (THC) Screen (Not Detect) Ethyl Alcohol < 10 mg/dL 07/10/21 07/10/21 Range/Units 19:32 22:06 WBC (4.8-10.8) X10*3/uL RBC (4.20-5.50) X10*6/uL Hgb (12.0-16.0) g/dl Hct (37-47) % MCV (80-98) fL MCH (27.0-33.0) pg MCHC (31.0-35.0) g/dl RDW (11.0-16.0) % Plt Count (160-400) X10*3/uL MPV (9.4-12.3) fL Immature Gran % (Auto) (0.0-0.4) % Neut % (Auto) (45-73) % Lymph % (Auto) (20-40) % Mccormick % (Auto) (2-11) % Eos % (Auto) (0-4) % Baso % (Auto) (0-2) % Lymph # (Auto) (1.2-4.9) X10*3/uL Mccormick # (Auto) (0.1-1.2) X10*3/uL Eos # (Auto) (0.0-0.4) X10*3/uL Baso # (Auto) (0.0-0.2) X10*3/uL Abs Immat Gran (auto) (0.00-0.03) X10*3/uL Absolute Neuts (auto) (2.0-8.3) X10*3/uL Absolute Nucleated RBC (0.0-0.012) X10*3/uL Nucleated RBC % (auto) (0.0-0.2) /100WBC PT (9.9-13.0) SEC INR (0.9-1.1) APTT (24.1-38.0) SEC Sodium 134 L (135-145) mmol/L Potassium 2.7 L (3.3-5.1) mmol/L Chloride 99 (96-108) mmol/L Carbon Dioxide 23 (22-29) mmol/L Anion Gap 15 (12-20) BUN 12 (9-16) mg/dL Creatinine 1.09 (0.5-1.4) mg/dL Estim Creat Clear Calc 76.3 Estimated GFR 55 Random Glucose 144 H (60-115) mg/dL Calcium 8.7 (8.4-10.2) mg/dL Total Bilirubin 0.2 (0.0-1.0) mg/dL AST 9 (5-31) U/L ALT 10 (0-31) U/L Alkaline Phosphatase 106 (39-117) U/L Total Protein 6.1 L (6.5-8.0) g/dL Albumin 4.0 (3.5-5.0) g/dL Urine Color Urine Appearance Urine pH (5.0-8.0) Ur Specific Peculiar (1.005-1.025) Urine Protein (NEG-TRACE) MG/DL Urine Glucose (UA) (NEG) MG/DL Urine Ketones (NEG) MG/DL Urine Blood (NEG) Urine Nitrite (NEG) Ur Leukocyte Esterase (NEG) Urine RBC (0) /HPF Urine WBC (0-4) /HPF Ur Squamous Epith Cells /LPF Amorphous Sediment /LPF Urine Bacteria /LPF Urine Test (NEGATIVE) Salicylates < 5.0 L (15-30) mg/dL Urine Opiates Screen Not Detected (Not Detect) Urine Fentanyl Screen POSITIVE H (Not Detect) Acetaminophen 46 H (<30) mcg/mL Ur Barbiturates Screen Not Detected (Not Detect) Ur Phencyclidine Scrn Not Detected (Not Detect) Ur Amphetamines Screen Not Detected (Not Detect) U Benzodiazepines Scrn Not Detected (Not Detect) Urine Cocaine Screen Not Detected (Not Detect) U Marijuana (THC) Screen Not Detected (Not Detect) Ethyl Alcohol mg/dL <TIMI Dong - Last Filed: 07/11/21 08:39> ECG Data Interpretation: Vent. Rate : 113 BPM ? ? Atrial Rate : 113 BPM ?? P-R Int : 206 ms? QRS Dur : 092 ms ? ? QT Int : 320 ms ? ? ? P-R-T Axes : 047 033 047 degrees ?? QTc Int : 438 ms ? Sinus tachycardia Otherwise normal ECG When compared with ECG of 15-JUN-2021 19:10, Nonspecific T wave abnormality now evident in Lateral leads ? <Evan Silver NP - Last Filed: 07/12/21 01:51> Discharge Plan Discharge Clinical Impression: PTSD (post-traumatic stress disorder), Borderline personality disorder <Evan Silver NP - Last Filed: 07/12/21 01:51> Patient Disposition: Admitted As Inpatient <Evan Silver NP - Last Filed: 07/12/21 01:51> Interventions: Admission Worksheet (ED) Last Done: 07/11/21 21:49 <Evan Silver NP - Last Filed: 07/12/21 01:51> Discharge Date/Time: 07/11/21 21:56 <Evan Silver NP - Last Filed: 07/12/21 01:51>
[2021-07-11] MEDS: Potassium Chloride ER 20 MEQ TAB.ER.PRT 60 MEQ PO (02:37)
--- NOTE | 2021-07-11 03:24 | PC.NURSE ---
pt ambulatory to [facility], report given to WALKER Gilbert
[2021-07-11] MEDS: Omeprazole 20 MG CAPSULE.DR PO ×2 (06:47→16:08)
--- NOTE | 2021-07-11 06:52 | PC.NURSE ---
Patient got transferred from main ED at 0315, ambulate independently, patient was here for Tylenol overdose, signed off by poison control, patient is medically cleared. Patient assessed by N, disposition is section 12 inpatient bed search, patient slept well, medication compliant, behavior appropriate, med rec completed and approved by the provider, will continue to monitor.
[2021-07-11 07:44] VITALS: BP 125/89; PULSE 100; RESP 16; TEMP 37.2; O2SAT 97
[2021-07-11 08:07] VITALS: BP 125/89; PULSE 100
[2021-07-11] MEDS: Ferrous Sulfate 324 MG TABLET.DR PO (08:07)
[2021-07-11] MEDS: Benztropine Mesylate 1 MG TABLET PO ×3 (08:07→21:19)
[2021-07-11] MEDS: lisinopriL 5 MG TABLET PO (08:07)
[2021-07-11] MEDS: Atorvastatin Calcium 10 MG TABLET PO (08:07)
[2021-07-11] MEDS: HaloperidoL 1 MG TABLET 3 MG PO ×3 (08:07→21:19)
[2021-07-11] MEDS: metFORMIN HCl 500 MG TABLET PO ×2 (08:07→17:03)
[2021-07-11] MEDS: Fluticasone Propionate 100 MCG BLST.W.DEV 2 PUFF INHALE (10:22)
[2021-07-11 10:33] VITALS: BP 129/84; PULSE 93; RESP 16; TEMP 37; O2SAT 97
[2021-07-11] MEDS: chlorproMAZINE HCl 25 MG TABLET 50 MG PO (11:53)
--- NOTE | 2021-07-11 11:54 | PC.NURSE ---
Pt tearful stating that she is hearing voices telling her to hurt herself, pt medicated with PRN thorazine PO. Effects pending.
[2021-07-11 21:19] VITALS: BP 137/77; PULSE 97
[2021-07-11] MEDS: Doxazosin Mesylate 2 MG TABLET 4 MG PO (21:19)
[2021-07-11] MEDS: Montelukast Sodium 10 MG TABLET PO (21:19)
[2021-07-11 21:35] LABS: COVID-19 Test Negative (Negative)
[2021-07-11 23:54] VITALS: BP 137/77; PULSE 97
[2021-07-11] MEDS: VerapamiL HCL SR 240 MG TABLET.ER PO (23:54)
[2021-07-11] MEDS: traZODone HCL 50 MG TABLET 150 MG PO (23:56)
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
[2021-07-12 06:00] VITALS: BP 112/72; PULSE 84; RESP 16; TEMP 36.4; O2SAT 95
[2021-07-12] MEDS: Omeprazole 20 MG CAPSULE.DR PO ×2 (06:51→17:36)
[2021-07-12 10:16] VITALS: BP 111/70; PULSE 91
[2021-07-12] MEDS: Ferrous Sulfate 324 MG TABLET.DR PO (10:16)
[2021-07-12] MEDS: lisinopriL 5 MG TABLET PO (10:16)
[2021-07-12] MEDS: Atorvastatin Calcium 10 MG TABLET PO (10:16)
[2021-07-12] MEDS: HaloperidoL 1 MG TABLET 3 MG PO ×3 (10:16→19:30)
[2021-07-12] MEDS: metFORMIN HCl 500 MG TABLET PO ×2 (10:16→17:36)
[2021-07-12] MEDS: Benztropine Mesylate 1 MG TABLET PO ×3 (10:17→19:30)
[2021-07-12] MEDS: Fluticasone Propionate 100 MCG BLST.W.DEV 2 PUFF INHALE (10:17)
[2021-07-12 11:05] LABS: Anion Gap 14 (12-20); Blood Urea Nitrogen 9 mg/dL (9-16); Carbon Dioxide 26 mmol/L (22-29); Chloride 102 mmol/L (96-108); Creatinine Clr Calc Pharmacy 105.3; Estimated Glomerular Filt Rate > 60; Sodium 138 mmol/L (135-145)
[2021-07-12] MEDS: chlorproMAZINE HCl 25 MG TABLET 50 MG PO (12:08)
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
[2021-07-12 19:28] VITALS: BP 112/62; PULSE 91
[2021-07-12] MEDS: Doxazosin Mesylate 2 MG TABLET 4 MG PO (19:28)
[2021-07-12 19:29] VITALS: BP 112/62; PULSE 91
[2021-07-12] MEDS: traZODone HCL 50 MG TABLET 150 MG PO (19:29)
[2021-07-12] MEDS: Montelukast Sodium 10 MG TABLET PO (19:29)
[2021-07-12] MEDS: VerapamiL HCL SR 240 MG TABLET.ER PO (19:29)
[2021-07-13 06:00] VITALS: BP 137/78; PULSE 81; TEMP 36.1; O2SAT 98
[2021-07-13] MEDS: Omeprazole 20 MG CAPSULE.DR PO ×2 (09:18→16:30)
[2021-07-13] MEDS: HaloperidoL 1 MG TABLET 3 MG PO ×3 (09:18→20:06)
[2021-07-13 09:19] VITALS: BP 106/72; PULSE 127
[2021-07-13] MEDS: lisinopriL 5 MG TABLET PO (09:19)
[2021-07-13] MEDS: Benztropine Mesylate 1 MG TABLET PO ×3 (09:19→20:06)
[2021-07-13] MEDS: Atorvastatin Calcium 10 MG TABLET PO (09:22)
[2021-07-13] MEDS: Ferrous Sulfate 324 MG TABLET.DR PO (09:22)
[2021-07-13] MEDS: metFORMIN HCl 500 MG TABLET PO ×2 (09:22→16:30)
[2021-07-13] MEDS: Fluticasone Propionate 100 MCG BLST.W.DEV 2 PUFF INHALE ×2 (09:24→20:19)
[2021-07-13] MEDS: chlorproMAZINE HCl 25 MG TABLET 50 MG PO (09:48)
--- NOTE | 2021-07-13 15:38 | P.PNPSI_ITS ---
Subjective Subjective Date of Service: 07/13/21 Reason For Visit: Suicide Attempt Interim History: pt seen on 07/13 Patient reports that she is doing well and that she slept well last night. She continues to deny any SI, HI and says that auditory hallucinations are getting much less and able to be ignored. Patient says she is feeling ready to go home and asks if it is possible to discharge tomorrow. 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 She reports medications are working well and has no other complaints or requests. Gaming Commissioner met with nursing home social worker today who knows patient well and reports that this is patient's baseline and that she appears appropriate for discharge. Mental Status Exam Mental Status Exam Narrative: Pt is alert and oriented; behavior is cooperative, friendly and calm; patient is not in distress; dressed in casual attire with adequate hygiene; mood is described as good and affect congruent; eye contact appropriate; Speech is normal rate, volume and prosody and not pressured; no psychomotor agitation/retardation present; thought process is organized, linear, logical and goal directed. Thought content is on returning home; otherwise TC relevant to pertinent topics and without any delusional content, paranoid ideations or grandiosity; denies any SI/HI. Reports AH present, but low level and able to be ignored. No other evidence of perceptual disturbance. ?Patients insight and judgment appear intact. Diagnostics Vital Signs (24Hr): Vital Signs - 24 hr 07/12/21 19:28 07/12/21 19:29 07/13/21 06:00 Temperature 97.0 F Pulse Rate 91 91 81 Blood Pressure 112/62 112/62 137/78 Pulse Oximetry 98 07/13/21 09:19 Temperature Pulse Rate 127 H Blood Pressure 106/72 Pulse Oximetry Body Mass Index 35.2 Labs Results: 07/10/21 19:31 07/12/21 10:40 Labs: Laboratory Results - last 48 hr 07/11/21 07/12/21 21:13 10:40 Sodium 138 Potassium 4.0 D Chloride 102 Carbon Dioxide 26 Anion Gap 14 BUN 9 Creatinine 0.79 Estim Creat Clear Calc 105.3 Estimated GFR > 60 COVID-19 (NICK) Negative COVID-19 Clin Com See Note Medications Medications Current Medications Al Hydroxide/Mg Hydroxide (Magnesium Hydrox/Alum Hydrox 30 Ml Oral.Susp) 30 ml PO Q6H PRN PRN Reason: Heartburn/Nausea Albuterol Sulfate (Albuterol Sulfate 90 Mcg 8 Gm Inhaler) 2 puff INHALE Q4H PRN PRN Reason: Shortness Of Breath Atorvastatin Calcium (Atorvastatin Calcium 10 Mg Tablet) 10 mg PO DAILY [facility] Last Admin: 07/13/21 09:22 Dose: 10 mg Documented by: Benztropine Mesylate (Benztropine Mesylate 1 Mg Tablet) 1 mg PO TID [facility] Last Admin: 07/13/21 14:03 Dose: 1 mg Documented by: Chlorpromazine HCl (Chlorpromazine Hcl 25 Mg Tablet) 50 mg PO DAILY PRN PRN Reason: Psychosis Last Admin: 07/13/21 09:48 Dose: 50 mg Documented by: Doxazosin Mesylate (Doxazosin Mesylate 2 Mg Tablet) 4 mg PO BEDTIME [facility]; Protocol Last Admin: 07/12/21 19:28 Dose: 4 mg Documented by: Ferrous Sulfate (Ferrous Sulfate 324 Mg Tablet.Dr) 324 mg PO DAILY [facility] Last Admin: 07/13/21 09:22 Dose: 324 mg Documented by: Fluticasone Propionate (Fluticasone Propionate 100 Mcg Blst.W.Dev) 2 puff INHALE RBID [facility] Last Admin: 07/13/21 09:24 Dose: 2 puff Documented by: Haloperidol (Haloperidol 1 Mg Tablet) 3 mg PO TID [facility] Last Admin: 07/13/21 14:03 Dose: 3 mg Documented by: Hydroxyzine HCl (Hydroxyzine Hcl 25 Mg Tablet) 25 mg PO BEDTIME PRN PRN Reason: Anxiety Lisinopril (Lisinopril 5 Mg Tablet) 5 mg PO DAILY [facility]; Protocol Last Admin: 07/13/21 09:19 Dose: 5 mg Documented by: Magnesium Hydroxide (Milk Of Magnesia 30 Ml Oral.Susp) 30 ml PO DAILY PRN PRN Reason: Constipation Metformin HCl (Metformin Hcl 500 Mg Tablet) 500 mg PO BIDWM [facility] Last Admin: 07/13/21 09:22 Dose: 500 mg Documented by: Montelukast Sodium (Montelukast Sodium 10 Mg Tablet) 10 mg PO BEDTIME [facility] Last Admin: 07/12/21 19:29 Dose: 10 mg Documented by: Nicotine (Nicotine 21 Mg Patch.Td24) 21 mg TRANSDERMA DAILY PRN PRN Reason: smoking cessation Non-Formulary Medication (Norethindrone (Contraceptive) [Deblitane]) 0.35 mg PO DAILY [facility] Omeprazole (Omeprazole 20 Mg Capsule.Dr) 20 mg PO BID@0630,1630 [facility] Last Admin: 07/13/21 09:18 Dose: 20 mg Documented by: Polyethylene Glycol (Polyethylene Glycol 3350 17 Gm Powd.Pack) 17 gm PO DAILY PRN PRN Reason: Constipation Trazodone HCl (Trazodone Hcl 50 Mg Tablet) 150 mg PO BEDTIME [facility] Last Admin: 07/12/21 19:29 Dose: 150 mg Documented by: Trazodone HCl (Trazodone Hcl 50 Mg Tablet) 50 mg PO BEDTIME PRN PRN Reason: Insomnia Verapamil HCl (Verapamil Hcl Sr 240 Mg Tablet.Er) 240 mg PO BEDTIME [facility]; Protocol Last Admin: 07/12/21 19:29 Dose: 240 mg Documented by: Allergies Allergies Allergy/AdvReac Type Severity Reaction Status Date / Time Fish Containing Products Allergy Severe ANAPHYLAXIS Verified 06/15/21 17:06 codeine [Codeine] Allergy Unknown RASH Verified 06/15/21 17:06 Penicillins Allergy Unknown RASH Verified 06/15/21 17:06 prednisone [Prednisone] Allergy Unknown RASH Verified 06/15/21 17:06 Sulfa (Sulfonamide Allergy Unknown RASH Verified 06/15/21 17:06 Antibiotics) [Sulfa (Sulfonamides)] azithromycin [AZITHROMYCIN] AdvReac Severe RASH Verified 06/15/21 17:06 nicotine AdvReac Unknown HEART Verified 06/15/21 17:06 PALPITATION TO NICOTINE GUM Seafood Allergy Severe ANAPHYLAXIS Uncoded 07/01/20 16:44 From Geodon Allergy Unknown DYSURIA, Uncoded 07/01/20 16:44 RASH Assessment & Plan Assessment & Plan (1) Borderline personality disorder: Status: Chronic Code(s): F60.3 - Borderline personality disorder (2) PTSD (post-traumatic stress disorder): Status: Chronic Code(s): F43.10 - Post-traumatic stress disorder, unspecified Assessment and Plan: IMPRESSION: Patient is a 45-year-old female with history of PTSD, borderline personality disorder and numerous crisis evaluations, hospitalizations and suicide attempts who presents for suicide attempt with acetaminophen reporting problematic command auditory hallucinations for the past 2 weeks. Of note, patient's [facility] reports that since They have been working with her she has had approximately 40 intentional overdoses with Tylenol. Patient reports that she is without depression or anxiety, that her meds are working well but that the chronic auditory hallucinations were for unknown reasons worse the past couple weeks and prompted her to overdose with Tylenol. Patient's overdose was with high rescue factor as she called 911 immediately upon taking the overdose. Patient reports that she was in no way suicidal prior to this and is not suicidal now. She reports that the voices have lowered in their intensity and she is better able to ignore them. She says whenever this incident was has passed and is no longer an issue. does not want any medication changes saying that her meds are working well. She feels she needs to rest a bit and then will be ready to go home. Of note, staff on the unit who of known patient for quite some time report that this is a very typical presentation for her, that her symptoms quickly resolved and that she knows when she safe and ready to go home. Patient denies depression however it seems likely that there was some triggering stressor or issue and that hallucinations are most likely mood congruent as she has no other psychotic symptoms and no manic symptoms and does not meet criteria for schizophrenia or bipolar disorder. Patient continues to report that she is without any SI at all, back to her normal self and ready to go home. Last Sawyer Eileen who knows patient well reports that this is a very typical presentation for patient and that she is at baseline; she has had numerous intentional overdoses almost all with Tylenol and that this is very unlikely to change with longer inpatient stay. Patient's [facility] also corroborates that current presentation is typical. It is noteworthy to mention that at her baseline, Giovannilives in the community with chronic SI and is chronically at risk for attempting suicide, which are typically with high rescue factor as was this current one. And thus at baseline, patient remains a high risk patient. It thus remains likely that she will at some point in the future again decompensate and engage in unsafe behaviors. However as mentioned this behavior is chronic and is not going to change with longer inpatient stay; rather this type of behavior will only likely resolve with long-term outpatient therapy. She continues to deny any SI at all and has maximized the resources available to her during this admission. While Pt is at chronic risk of harm to self, she is not in imminent risk. PLAN Patient on CV Q 15 minutes checks Continue home medications as patient says they work well does not want any changes Monitor for safety however patient reports that she is safe, without any SI and that auditory hallucinations are lessening Greater than 50% of the session was spent on counseling and/or coordination of care Reason for contiued inpatient stay Substantial Risk for: stable for discharge
[2021-07-13] MEDS: traZODone HCL 50 MG TABLET 150 MG PO (20:06)
[2021-07-13 20:07] VITALS: BP 128/86; PULSE 86
[2021-07-13] MEDS: VerapamiL HCL SR 240 MG TABLET.ER PO (20:07)
[2021-07-13 20:11] VITALS: BP 128/86; PULSE 86
[2021-07-13] MEDS: Doxazosin Mesylate 2 MG TABLET 4 MG PO (20:11)
[2021-07-13] MEDS: Montelukast Sodium 10 MG TABLET PO (20:13)
[2021-07-14] MEDS: Fluticasone Propionate 100 MCG BLST.W.DEV 2 PUFF INHALE (08:44)
[2021-07-14] MEDS: metFORMIN HCl 500 MG TABLET PO (08:46)
[2021-07-14] MEDS: Ferrous Sulfate 324 MG TABLET.DR PO (08:46)
[2021-07-14] MEDS: Benztropine Mesylate 1 MG TABLET PO (08:46)
[2021-07-14] MEDS: Omeprazole 20 MG CAPSULE.DR PO (08:46)
[2021-07-14] MEDS: HaloperidoL 1 MG TABLET 3 MG PO (08:46)
[2021-07-14] MEDS: Atorvastatin Calcium 10 MG TABLET PO (08:46)
[2021-07-14 08:47] VITALS: BP 110/67; PULSE 88
[2021-07-14] MEDS: lisinopriL 5 MG TABLET PO (08:47)
[2021-07-14 08:50] VITALS: BP 110/67; PULSE 88; RESP 17
--- NOTE | 2021-07-14 11:33 | PM.PSYDC ---
DS: Providers Provider Date of Service: 07/14/21 Date of admission: 07/11/21 20:44 Date of discharge: 07/14/21 Primary care physician: Unknown Physician Attending physician on admission: Jay Reed Attending physician on discharge: Jay Reed DS: Diagnosis Discharge Diagnosis (1) PTSD (post-traumatic stress disorder): Status: Chronic (2) Borderline personality disorder: Status: Chronic DS: Medications Discharge Medications Home Medications: Home Medications Medication Instructions Recorded Confirmed trazodone 150 mg tablet 150 mg PO BEDTIME 01/27/21 07/11/21 polyethylene glycol 3350 17 gram 17 g PO DAILY PRN 02/12/21 07/11/21 oral powder packet (Miralax) chlorpromazine 50 mg tablet 50 mg PO DAILY PRN 05/02/21 07/11/21 atorvastatin 10 mg tablet 1 tab PO DAILY 05/29/21 07/11/21 doxazosin 1 mg tablet 4 mg PO BEDTIME 05/29/21 07/11/21 ferrous sulfate 325 mg (65 mg 1 tab PO DAILY 05/29/21 07/11/21 iron) tablet,delayed release fluticasone propionate 110 2 puff INHALATION BID 05/29/21 07/11/21 mcg/actuation HFA aerosol inhaler (Flovent HFA) haloperidol 1 mg tablet 3 tab PO TID 05/29/21 07/11/21 haloperidol decanoate 100 mg/mL 1 ml IM Q4W 05/29/21 07/11/21 intramuscular solution lisinopril 5 mg tablet 1 tab PO DAILY 05/29/21 07/11/21 metformin 500 mg tablet 1 tab PO BID 05/29/21 07/11/21 montelukast 10 mg tablet 1 tab PO BEDTIME 05/29/21 07/11/21 norethindrone (contraceptive) 0.35 0.35 mg PO DAILY 05/29/21 07/11/21 mg tablet (Deblitane) pantoprazole 40 mg tablet,delayed 1 tab PO BID 05/29/21 07/11/21 release verapamil 240 mg tablet,extended 1 tab PO BEDTIME 05/29/21 07/11/21 release albuterol sulfate 90 mcg/actuation 2 puff INHALATION Q4H PRN 06/15/21 07/11/21 aerosol inhaler (Ventolin HFA) Previous Rx's Medication Instructions Recorded benztropine 1 mg tablet 1 mg PO TID 30 Days #90 tab 07/14/21 Mental Status Exam Mental Status Exam Narrative: Pt is alert and oriented; behavior is cooperative, friendly and calm; patient is not in distress; dressed in casual attire with adequate hygiene; mood is described as good and affect congruent; eye contact appropriate; Speech is normal rate, volume and prosody and not pressured; no psychomotor agitation/retardation present; thought process is organized, linear, logical and goal directed. Thought content is on returning home; otherwise TC relevant to pertinent topics and without any delusional content, paranoid ideations or grandiosity; denies any SI/HI. Reports AH present, but low level and able to be ignored. No other evidence of perceptual disturbance. ?Patients insight and judgment appear intact. Data Data Completed and Pending Completed studies during hospitalization [Text1]: 07/10/21 07/10/21 07/10/21 19:22 19:22 19:31 WBC 10.3 RBC 4.17 L Hgb 13.0 Hct 36.9 L MCV 88.5 MCH 31.2 MCHC 35.2 H RDW 12.0 Plt Count 276 MPV 9.6 Immature Gran % (Auto) 0.5 H Neut % (Auto) 68.9 Lymph % (Auto) 20.8 [place] % (Auto) 7.8 Eos % (Auto) 1.8 Baso % (Auto) 0.2 Lymph # (Auto) 2.1 [place] # (Auto) 0.8 Eos # (Auto) 0.2 Baso # (Auto) 0.0 Abs Immat Gran (auto) 0.05 H Absolute Neuts (auto) 7.1 Absolute Nucleated RBC 0.000 Nucleated RBC % (auto) 0.0 PT INR APTT Sodium Potassium Chloride Carbon Dioxide Anion Gap BUN Creatinine Estim Creat Clear Calc Estimated GFR Random Glucose Calcium Total Bilirubin AST ALT Alkaline Phosphatase Total Protein Albumin Urine Color STRAW Urine Appearance CLEAR Urine pH 6.0 Ur Specific [place] <= 1.005 Urine Protein NEG Urine Glucose (UA) NEG Urine Ketones NEG Urine Blood NEG Urine Nitrite NEG Ur Leukocyte Esterase NEG Urine RBC 0 Urine WBC 0-2 Ur Squamous Epith Cells 1+ Amorphous Sediment TRACE Urine Bacteria TRACE Urine Test NEGATIVE Salicylates Urine Opiates Screen Urine Fentanyl Screen Acetaminophen Ur Barbiturates Screen Ur Phencyclidine Scrn Ur Amphetamines Screen U Benzodiazepines Scrn Urine Cocaine Screen U Marijuana (THC) Screen Ethyl Alcohol COVID-19 ([facility]) COVID-19 PrePlay Com 07/10/21 07/10/21 07/10/21 19:31 19:31 19:31 WBC RBC Hgb Hct MCV MCH MCHC RDW Plt Count MPV Immature Gran % (Auto) Neut % (Auto) Lymph % (Auto) [place] % (Auto) Eos % (Auto) Baso % (Auto) Lymph # (Auto) [place] # (Auto) Eos # (Auto) Baso # (Auto) Abs Immat Gran (auto) Absolute Neuts (auto) Absolute Nucleated RBC Nucleated RBC % (auto) PT 11.2 INR 1.0 APTT 37.6 Sodium 131 L Potassium 3.0 L D Chloride 95 L Carbon Dioxide 25 Anion Gap 14 BUN 12 Creatinine 0.86 Estim Creat Clear Calc 96.7 Estimated GFR > 60 Random Glucose 144 H Calcium 8.9 Total Bilirubin 0.3 AST 11 ALT 10 Alkaline Phosphatase 130 H D Total Protein 6.8 Albumin 4.4 Urine Color Urine Appearance Urine pH Ur Specific [place] Urine Protein Urine Glucose (UA) Urine Ketones Urine Blood Urine Nitrite Ur Leukocyte Esterase Urine RBC Urine WBC Ur Squamous Epith Cells Amorphous Sediment Urine Bacteria Urine Test Salicylates < 5.0 L Urine Opiates Screen Urine Fentanyl Screen Acetaminophen 53 H* Ur Barbiturates Screen Ur Phencyclidine Scrn Ur Amphetamines Screen U Benzodiazepines Scrn Urine Cocaine Screen U Marijuana (THC) Screen Ethyl Alcohol < 10 COVID-19 (NICK) COVID-19 Clin Com 07/10/21 07/10/21 07/11/21 19:32 22:06 21:13 WBC RBC Hgb Hct MCV MCH MCHC RDW Plt Count MPV Immature Gran % (Auto) Neut % (Auto) Lymph % (Auto) [place] % (Auto) Eos % (Auto) Baso % (Auto) Lymph # (Auto) [place] # (Auto) Eos # (Auto) Baso # (Auto) Abs Immat Gran (auto) Absolute Neuts (auto) Absolute Nucleated RBC Nucleated RBC % (auto) PT INR APTT Sodium 134 L Potassium 2.7 L Chloride 99 Carbon Dioxide 23 Anion Gap 15 BUN 12 Creatinine 1.09 Estim Creat Clear Calc 76.3 Estimated GFR 55 Random Glucose 144 H Calcium 8.7 Total Bilirubin 0.2 AST 9 ALT 10 Alkaline Phosphatase 106 Total Protein 6.1 L Albumin 4.0 Urine Color Urine Appearance Urine pH Ur Specific [place] Urine Protein Urine Glucose (UA) Urine Ketones Urine Blood Urine Nitrite Ur Leukocyte Esterase Urine RBC Urine WBC Ur Squamous Epith Cells Amorphous Sediment Urine Bacteria Urine Test Salicylates < 5.0 L Urine Opiates Screen Not Detected Urine Fentanyl Screen POSITIVE H Acetaminophen 46 H Ur Barbiturates Screen Not Detected Ur Phencyclidine Scrn Not Detected Ur Amphetamines Screen Not Detected U Benzodiazepines Scrn Not Detected Urine Cocaine Screen Not Detected U Marijuana (THC) Screen Not Detected Ethyl Alcohol COVID-19 (NICK) Negative COVID-19 Clin Com See Note 07/12/21 10:40 WBC RBC Hgb Hct MCV MCH MCHC RDW Plt Count MPV Immature Gran % (Auto) Neut % (Auto) Lymph % (Auto) [place] % (Auto) Eos % (Auto) Baso % (Auto) Lymph # (Auto) [place] # (Auto) Eos # (Auto) Baso # (Auto) Abs Immat Gran (auto) Absolute Neuts (auto) Absolute Nucleated RBC Nucleated RBC % (auto) PT INR APTT Sodium 138 Potassium 4.0 D Chloride 102 Carbon Dioxide 26 Anion Gap 14 BUN 9 Creatinine 0.79 Estim Creat Clear Calc 105.3 Estimated GFR > 60 Random Glucose Calcium Total Bilirubin AST ALT Alkaline Phosphatase Total Protein Albumin Urine Color Urine Appearance Urine pH Ur Specific [place] Urine Protein Urine Glucose (UA) Urine Ketones Urine Blood Urine Nitrite Ur Leukocyte Esterase Urine RBC Urine WBC Ur Squamous Epith Cells Amorphous Sediment Urine Bacteria Urine Test Salicylates Urine Opiates Screen Urine Fentanyl Screen Acetaminophen Ur Barbiturates Screen Ur Phencyclidine Scrn Ur Amphetamines Screen U Benzodiazepines Scrn Urine Cocaine Screen U Marijuana (THC) Screen Ethyl Alcohol COVID-19 ([facility]) COVID-19 Clin Com DS: Summary Hospital Course Hospital Course: Patient is a 45-year-old female with history of PTSD,? borderline personality disorder and numerous crisis evaluations, hospitalizations and suicide attempts who presents for suicide attempt with acetaminophen reporting problematic command auditory hallucinations for the past 2 weeks.? 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 intentional overdoses with Tylenol.? Patient reports that she is without depression or anxiety, that her meds are working well but that the chronic auditory hallucinations were for unknown reasons worse the past couple weeks and prompted her to overdose with Tylenol.? Patient's overdose was with high rescue factor as she called 911 immediately upon taking the overdose.? Patient reports that she was in no way suicidal prior to this and is not suicidal now.? She reports that the voices have lowered in their intensity and she is better able to ignore them.? She says whenever this incident was has passed and is no longer an issue.? does not want any medication changes saying that her meds are working well.? She feels she needed to rest a bit and feeling rested asked for discharge home. Of note, staff on the unit who of known patient for quite some time report that this is a very typical presentation for her, that her symptoms quickly resolve and? that she knows when she safe and ready to go home.? Patient denies depression however it seems likely that there was some triggering stressor or issue and that? hallucinations are most likely mood congruent as she has no other psychotic symptoms and no manic symptoms and does not meet criteria for schizophrenia or bipolar disorder. Patient continues to deny any SI and feels that this self-harming urges have down. 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 At this time copywriter and team agreed that patient had reached maximal benefit from this inpatient admission and that further treatments can occur in the outpatient setting as patient is at baseline. At her baseline, she lives in the community, with chronic intermittent SI and has frequent suicidal gestures or attempts. In the community, even when patient is feeling safe and w/out SI, she can quickly become dysregulated, though much of the time this is able to resolve without needing inpatient admission. She has lived in the community as a chronically a high risk patient for years and this will not change with a longer stay on inpatient unit; rather change requires continued assisted commitment to outpatient therapy of which she is engaged. Given patient's diagnosis, there is also the risk that remaining on an inpatient unit too long will cause her to regress undoing the therapeutic benefit obtained earlier in the admission. This something of which Lucita is well aware, has discussed and has accepted. She is looking forward to discharge as she has her job waiting for her which copywriter agrees is therapeutic and outward focused, something which will likely help patient in her recovery. And while she remains vulnerable to decompensation, she is not in imminent risk of harm to self or others and does not rise the level of involuntary commitment. His request for discharge honored Status at Discharge Functional status at discharge: independent ambulation Overall status at discharge: patient is back to baseline Time Spent with Patient Time attestation: Total time spent providing and/or coordinating discharge services: Time spent: Greater than 30 minutes Discharge Plan Discharge Patient Disposition: Home, Self-Care Discharge Diagnosis: PTSD, chronic; borderline personality disorder [facility]20/21 11:00 am (Telehealth) Psych Prescriber: Dylan Calderón ([facility]) [Other] - 07/29/21 3:00 pm (Telehealth) [facility] [Other] - 1 Week Physician,Rose J [Primary Care Provider] - 1 Week Discharge Medications: Continued trazodone 150 mg tablet 150 mg PO BEDTIME RF: 0 polyethylene glycol 3350 [Miralax] 17 gram Powder In Packet 17 g PO DAILY PRN (Reason: Constipation) RF: 0 chlorpromazine 50 mg Tablet 50 mg PO DAILY PRN (Reason: Psychosis) RF: 0 metformin 500 mg tablet 1 tab PO BID RF: 0 atorvastatin 10 mg tablet 1 tab PO DAILY RF: 0 doxazosin 1 mg tablet 4 mg PO BEDTIME RF: 0 haloperidol 1 mg tablet 3 tab PO TID RF: 0 pantoprazole 40 mg tablet,delayed release (DR/EC) 1 tab PO BID RF: 0 verapamil 240 mg tablet extended release 1 tab PO BEDTIME RF: 0 montelukast 10 mg tablet 1 tab PO BEDTIME RF: 0 lisinopril 5 mg tablet 1 tab PO DAILY RF: 0 ferrous sulfate 325 mg (65 mg iron) tablet,delayed release (DR/EC) 1 tab PO DAILY RF: 0 Flovent HFA 110 mcg/actuation HFA aerosol inhaler 2 puff inhalation BID RF: 0 norethindrone (contraceptive) [Deblitane] 0.35 mg Tablet 0.35 mg PO DAILY RF: 0 haloperidol decanoate 100 mg/mL solution 1 ml IM Q4W RF: 0 albuterol sulfate [Ventolin HFA] 90 mcg/actuation HFA aerosol inhaler 2 puff inhalation Q4H PRN (Reason: Shortness Of Breath) RF: 0 Changed benztropine 1 mg tablet 1 mg PO TID 30 Days Qty: 90 RF: 0 Discharge Orders: Discharge Order (Routine); Ordered 07/14/21 Ordered By: Jay Reed Diet: regular diet Activity on Discharge: As tolerated Stand Alone Forms: Patient Portal Discharge page Care Plan Goals: Maintain mood and safe behaviors Take medications as prescribed Practice coping skills Continue with outpatient providers and reach out to them as needed Health Concerns: Mood stability and behaviors Plan of Treatment: Follow up with your PCP and psychiatric provider regarding above concerns Take medications as prescribed Assessment: Risk assessment at time of discharge:? Patient was interviewed prior to discharge and found to be fully oriented and without any SI or HI. Patient has insight and demonstrates good judgment in terms of wanting to pursue treatment. Patient is not in imminent risk of harm to self or others and has a safety plan that includes presenting to the closest ER or calling 911 if feeling unsafe.? Patient has been observed closely by nursing and unit staff throughout admission; patient has not engaged in any behaviors that suggest dangerousness to self or others and has demonstrated appropriate behaviors and impulse control. Discharge Date/Time: 07/14/21 13:18
== END 2021-07-14 13:18 | disposition home or self-care (01) | DRG 883 ==
LOC: HO.ED 07-11 19:16 → HO.PM5 07-11 20:56
PROVIDERS: Nurse Practitioner Primary Care; Admitting Provider Psychiatry & Neurology Psychiatry; Emergency Provider Internal Medicine; Visit Provider Psychiatry & Neurology Psychiatry
DX: F60.3 Borderline personality disorder (principal); R45.851 Suicidal ideations; F43.10 Post-traumatic stress disorder, unspecified; K21.9 Gastro-esophageal reflux disease without esophagitis; E78.5 Hyperlipidemia, unspecified; E11.9 Type 2 diabetes mellitus without complications; F17.210 Nicotine dependence, cigarettes, uncomplicated; Z71.6 Tobacco abuse counseling; Z20.822 Contact with and (suspected) exposure to COVID-19; Z91.5 Personal history of self-harm; Z88.0 Allergy status to penicillin; Z88.2 Allergy status to sulfonamides; Z88.5 Allergy status to narcotic agent; Z79.84 Long term (current) use of oral hypoglycemic drugs; Z79.899 Other long term (current) drug therapy
CPT/HCPCS: 36415; 80051; 80053; 80143; 80179; 80307; 81001; 81025; 82077; 82565; 84520; 85025; 85610; 85730; 87635; 90686; 93005; 99285; J2405

== ENCOUNTER 2021-07-14 18:55 | Inpatient (IN) | payer MEDICARE, MEDICAID, SELFPAY ==
[2021-07-14 19:05] VITALS: BP 139/93; PULSE 106; RESP 18; TEMP 37.3; O2SAT 97; BMI 29.9
[2021-07-14 19:45] LABS: Appearance Urine CLEAR; Color Urine STRAW; Glucose Urine UA NEG (NEG); Leukocyte Esterase Urine TRACE (NEG); Nitrite Urine NEG (NEG); Specific Gravity - Urine <= 1.005 (1.005-1.025); UACC Culture Trigger YES; Urine Blood NEG (NEG); Urine Ketones NEG (NEG); Urine Protein NEG (NEG-TRACE)
--- NOTE | 2021-07-14 19:48 | PC.NURSE ---
BAN called and spoke with Milagros, updated patient's disposition, patient is on section 12 inpatient bed search, patient is currently wandering in pod with staff, will continue to monitor.
[2021-07-14 19:51] LABS: Bacteria Urine TRACE /LPF; RBC Urine 0-2 /HPF (0); Squamous Epithelial Cell Urine 1+ /LPF; UACC CULT YES
[2021-07-14 20:01] LABS: Amphetamine Screen Urine Not Detected (Not Detect); Barbiturates, Urine Not Detected (Not Detect); Benzodiazepines Screen Urine Not Detected (Not Detect); Cannabinoid Screen Urine Not Detected (Not Detect); Cocaine Screen Urine Not Detected (Not Detect); Fentanyl, urine POSITIVE (Not Detect); Opiate Screen Urine Not Detected (Not Detect); Phencyclidine Screen Urine Not Detected (Not Detect)
[2021-07-14 20:02] LABS: COVID-19 Test Negative (Negative)
--- NOTE | 2021-07-14 21:08 | ED.PSYCH ---
HPI - Psych General Chief Complaint: Psychiatric Symptoms <Parish Ruano MD - Last Filed: 07/15/21 12:09> Stated Complaint: crisis <Parish Ruano MD - Last Filed: 07/15/21 12:09> Time Seen by Provider: 07/14/21 21:04 <Parish Ruano MD - Last Filed: 07/15/21 12:09> Source: patient <Parish Ruano MD - Last Filed: 07/15/21 12:09> Mode of arrival: EMS <Parish Ruano MD - Last Filed: 07/15/21 12:09> Limitations: no limitations <Parish Ruano MD - Last Filed: 07/15/21 12:09> History of Present Illness HPI Narrative: Patient with bipolar, borderline personality disorder just discharged today from psych floor comes back for increased depression and feeling suicida with plan to overdose seen by N and Section 12 for admission <Parish Ruano MD - Last Filed: 07/15/21 12:09> Related Data Home Medications: Home Medications Medication Instructions Recorded Confirmed trazodone 150 mg tablet 150 mg PO BEDTIME 01/27/21 07/14/21 polyethylene glycol 3350 17 gram 17 g PO DAILY PRN 02/12/21 07/11/21 oral powder packet (Miralax) chlorpromazine 50 mg tablet 50 mg PO DAILY PRN 05/02/21 07/14/21 atorvastatin 10 mg tablet 1 tab PO DAILY 05/29/21 07/14/21 doxazosin 1 mg tablet 4 mg PO BEDTIME 05/29/21 07/14/21 ferrous sulfate 325 mg (65 mg 1 tab PO DAILY 05/29/21 07/14/21 iron) tablet,delayed release fluticasone propionate 110 2 puff INHALATION BID 05/29/21 07/14/21 mcg/actuation HFA aerosol inhaler (Flovent HFA) haloperidol 1 mg tablet 3 tab PO TID 05/29/21 07/14/21 haloperidol decanoate 100 mg/mL 1 ml IM Q4W 05/29/21 07/14/21 intramuscular solution lisinopril 5 mg tablet 1 tab PO DAILY 05/29/21 07/14/21 metformin 500 mg tablet 1 tab PO BID 05/29/21 07/14/21 montelukast 10 mg tablet 1 tab PO BEDTIME 05/29/21 07/14/21 norethindrone (contraceptive) 0.35 0.35 mg PO DAILY 05/29/21 07/11/21 mg tablet (Deblitane) pantoprazole 40 mg tablet,delayed 1 tab PO BID 05/29/21 07/14/21 release verapamil 240 mg tablet,extended 1 tab PO BEDTIME 05/29/21 07/14/21 release albuterol sulfate 90 mcg/actuation 2 puff INHALATION Q4H PRN 06/15/21 07/14/21 aerosol inhaler (Ventolin HFA) Previous Rx's Medication Instructions Recorded benztropine 1 mg tablet 1 mg PO TID 30 Days #90 tab 07/14/21 <Parish Ruano MD - Last Filed: 07/15/21 12:09> Allergies/Adverse Reactions: Allergies Allergy/AdvReac Type Severity Reaction Status Date / Time Fish Containing Products Allergy Severe ANAPHYLAXIS Verified 06/15/21 17:06 codeine [Codeine] Allergy Unknown RASH Verified 06/15/21 17:06 Penicillins Allergy Unknown RASH Verified 06/15/21 17:06 prednisone [Prednisone] Allergy Unknown RASH Verified 06/15/21 17:06 Sulfa (Sulfonamide Allergy Unknown RASH Verified 06/15/21 17:06 Antibiotics) [Sulfa (Sulfonamides)] azithromycin [AZITHROMYCIN] AdvReac Severe RASH Verified 06/15/21 17:06 nicotine AdvReac Unknown HEART Verified 06/15/21 17:06 PALPITATION TO NICOTINE GUM Seafood Allergy Severe ANAPHYLAXIS Uncoded 07/01/20 16:44 From Geodon Allergy Unknown DYSURIA, Uncoded 07/01/20 16:44 RASH <Parish Ruano MD - Last Filed: 07/15/21 12:09> Review of Systems Review of Systems: Constitutional : No Fever, No Chills ENT/Mouth : No Ear Pain, No Nasal Congestion, No sore throat Eyes: No Eye Pain, No Swelling, No Redness Cardiovascular : No Chest Pain, No SOB Respiratory : No Cough, No Sputum, No Dyspnea Gastrointestinal : No Nausea, No Vomiting, No Diarrhea, No Hematochezia, No Melena Genitourinary : No Dysuria, No Urinary Frequency, No Hematuria Musculoskeletal : No Myalgias Skin : No Skin Lesions, No rash Neuro : No Weakness, No Numbness, No Paresthesias, No Dizziness, No Headache Psych : positive Anxiety, positive Depression, positive SI Heme/Lymph: No Lymphadenopathy Endocrine : No Polyuria, No Polydipsia <Parish Ruano MD - Last Filed: 07/15/21 12:09> [facility] Past Medical History Medical History: Medical History (Updated 07/15/21 @ 02:21 by Parish Ruano MD) Bronchitis Diabetes type 2, controlled GERD (gastroesophageal reflux disease) Hyperlipidemia Mood disorder Overdose PTSD (post-traumatic stress disorder) <Parish Ruano MD - Last Filed: 07/15/21 12:09> Social History Social History: Social History 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: Other 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 Other:: pt lives in prison with 3 other peers Housing: House Housing Other:: [facility] Do you presently have visiting nurse or other home services: Yes (pt has VNA for haldol IM) Alcohol intake: never Patient Tobacco Use Status: Current everyday Tobacco user Tobacco use type: Cigarette Cigarette Packs Per Day: 1 Cigarettes Per Day: 20.0 Years Smoked: 20 e-Cigarette/Vaping Use: Never Used Second Hand Smoke Exposure: Yes Substance Use Type: Caffiene Advance Directives: No Advance Directives Information Provided: Yes Patient : No service: No Sexual orientation: Straight/Heterosexual <Parish Ruano MD - Last Filed: 07/15/21 12:09> Physical Exam Vital Signs: Vital Signs: Last Vital Signs Temp 97.8 F 07/15/21 09:44 Pulse 89 07/15/21 09:44 Resp 14 07/15/21 09:44 BP 120/83 07/15/21 09:44 Pulse Ox 95 07/15/21 09:44 Body Mass Index 29.9 <Parish Ruano MD - Last Filed: 07/15/21 12:09> Vital Signs: Last Vital Signs Temp 97.8 F 07/15/21 09:44 Pulse 89 07/15/21 09:44 Resp 14 07/15/21 09:44 BP 120/83 07/15/21 09:44 Pulse Ox 95 07/15/21 09:44 Body Mass Index 29.9 <Mojgan Hernandez DO - Last Filed: 07/15/21 06:49> Appearance: Alert. Oriented X3. No acute distress. Obese Eyes: PERRLA, no pallor or icterus ENT: Pharynx normal. Oral Mucosa moist Neck: Normal inspection. Neck supple. CVS: Normal heart rate and rhythm. Pulses normal. Respiratory: No respiratory distress. Equal air entry bilateral, no wheezing/rales/rhonchi Abdomen: Soft and nontender. Bowel sounds are present, no mass palpable, no CVA tenderness Skin: Skin warm and dry. Normal skin color. Normal skin turgor. Extremities: No lower extremity edema. No calf tenderness Neuro: Oriented X 3. No motor deficit. No sensory deficit.No cerebellar signs , cranial nerves II-XII intact <Parish Ruano MD - Last Filed: 07/15/21 12:09> Course Course Course Narrative: Physician observation started at 648am. Patient placed in physician observation because the patient needed more time [facility]N to assess the need for inpatient psychiatry. At the time observation was started the patient's vitals were stable, patient is asleep. RN Reports no acute events overnight. <Mojgan Hernandez DO - Last Filed: 07/15/21 06:49> MDM - Psych MDM Narrative Medical decision making narrative: Patient with bipolar disorder with depression feel depressed suicidal seen by crisis in the field Section 12 for admission <Parish Ruano MD - Last Filed: 07/15/21 12:09> Differential Diagnosis Differential diagnosis: Likely suicidal ideation and bipolar disorder <Parish Ruano MD - Last Filed: 07/15/21 12:09> Medical Records Attestation: I reviewed the patient's medical records. <Parish Ruano MD - Last Filed: 07/15/21 12:09> Lab Data Attestation: I reviewed the patient's lab results. <Parish Ruano MD - Last Filed: 07/15/21 12:09> Result diagrams: : 07/15/21 11:01 07/15/21 11:01 <Parish Ruano MD - Last Filed: 07/15/21 12:09> Labs: Lab Results 07/14/21 07/14/21 07/14/21 Range/Units 19:34 19:34 19:35 WBC (4.8-10.8) X10*3/uL RBC (4.20-5.50) X10*6/uL Hgb (12.0-16.0) g/dl Hct (37-47) % MCV (80-98) fL MCH (27.0-33.0) pg MCHC (31.0-35.0) g/dl RDW (11.0-16.0) % Plt Count (160-400) X10*3/uL MPV (9.4-12.3) fL Immature Gran % (Auto) (0.0-0.4) % Neut % (Auto) (45-73) % Lymph % (Auto) (20-40) % [place] % (Auto) (2-11) % Eos % (Auto) (0-4) % Baso % (Auto) (0-2) % Lymph # (Auto) (1.2-4.9) X10*3/uL [place] # (Auto) (0.1-1.2) X10*3/uL Eos # (Auto) (0.0-0.4) X10*3/uL Baso # (Auto) (0.0-0.2) X10*3/uL Abs Immat Gran (auto) (0.00-0.03) X10*3/uL Absolute Neuts (auto) (2.0-8.3) X10*3/uL Absolute Nucleated RBC (0.0-0.012) X10*3/uL Nucleated RBC % (auto) (0.0-0.2) /100WBC Sodium (135-145) mmol/L Potassium (3.3-5.1) mmol/L Chloride (96-108) mmol/L Carbon Dioxide (22-29) mmol/L Anion Gap (12-20) BUN (9-16) mg/dL Creatinine (0.5-1.4) mg/dL Estim Creat Clear Calc Estimated GFR Random Glucose (60-115) mg/dL Calcium (8.4-10.2) mg/dL Urine Color STRAW Urine Appearance CLEAR Urine pH 6.0 (5.0-8.0) Ur Specific Winner <= 1.005 (1.005-1.025) Urine Protein NEG (NEG-TRACE) MG/DL Urine Glucose (UA) NEG (NEG) MG/DL Urine Ketones NEG (NEG) MG/DL Urine Blood NEG (NEG) Urine Nitrite NEG (NEG) Ur Leukocyte Esterase TRACE H (NEG) Urine RBC 0-2 (0) /HPF Urine WBC 1-4 (0-4) /HPF Ur Squamous Epith Cells 1+ /LPF Urine Bacteria TRACE /LPF Urine Opiates Screen Not Detected (Not Detect) Urine Fentanyl Screen POSITIVE H (Not Detect) Ur Barbiturates Screen Not Detected (Not Detect) Ur Phencyclidine Scrn Not Detected (Not Detect) Ur Amphetamines Screen Not Detected (Not Detect) U Benzodiazepines Scrn Not Detected (Not Detect) Urine Cocaine Screen Not Detected (Not Detect) U Marijuana (THC) Screen Not Detected (Not Detect) COVID-19 (NICK) Negative (Negative) COVID-19 Clin Com See Note 07/15/21 07/15/21 Range/Units 11:01 11:01 WBC 6.7 (4.8-10.8) X10*3/uL RBC 4.33 (4.20-5.50) X10*6/uL Hgb 13.3 (12.0-16.0) g/dl Hct 39.3 (37-47) % MCV 90.8 (80-98) fL MCH 30.7 (27.0-33.0) pg MCHC 33.8 (31.0-35.0) g/dl RDW 12.1 (11.0-16.0) % Plt Count 256 (160-400) X10*3/uL MPV 9.4 (9.4-12.3) fL Immature Gran % (Auto) 0.3 (0.0-0.4) % Neut % (Auto) 67.1 (45-73) % Lymph % (Auto) 22.0 (20-40) % [place] % (Auto) 8.5 (2-11) % Eos % (Auto) 1.8 (0-4) % Baso % (Auto) 0.3 (0-2) % Lymph # (Auto) 1.5 (1.2-4.9) X10*3/uL [place] # (Auto) 0.6 (0.1-1.2) X10*3/uL Eos # (Auto) 0.1 (0.0-0.4) X10*3/uL Baso # (Auto) 0.0 (0.0-0.2) X10*3/uL Abs Immat Gran (auto) 0.02 (0.00-0.03) X10*3/uL Absolute Neuts (auto) 4.5 (2.0-8.3) X10*3/uL Absolute Nucleated RBC 0.000 (0.0-0.012) X10*3/uL Nucleated RBC % (auto) 0.0 (0.0-0.2) /100WBC Sodium 139 (135-145) mmol/L Potassium 4.2 (3.3-5.1) mmol/L Chloride 103 (96-108) mmol/L Carbon Dioxide 24 (22-29) mmol/L Anion Gap 16 (12-20) BUN 11 (9-16) mg/dL Creatinine 0.77 (0.5-1.4) mg/dL Estim Creat Clear Calc 99.4 Estimated GFR > 60 Random Glucose 106 (60-115) mg/dL Calcium 9.5 D (8.4-10.2) mg/dL Urine Color Urine Appearance Urine pH (5.0-8.0) Ur Specific Winner (1.005-1.025) Urine Protein (NEG-TRACE) MG/DL Urine Glucose (UA) (NEG) MG/DL Urine Ketones (NEG) MG/DL Urine Blood (NEG) Urine Nitrite (NEG) Ur Leukocyte Esterase (NEG) Urine RBC (0) /HPF Urine WBC (0-4) /HPF Ur Squamous Epith Cells /LPF Urine Bacteria /LPF Urine Opiates Screen (Not Detect) Urine Fentanyl Screen (Not Detect) Ur Barbiturates Screen (Not Detect) Ur Phencyclidine Scrn (Not Detect) Ur Amphetamines Screen (Not Detect) U Benzodiazepines Scrn (Not Detect) Urine Cocaine Screen (Not Detect) U Marijuana (THC) Screen (Not Detect) COVID-19 (NICK) (Negative) COVID-19 Clin Com <Parish Ruano MD - Last Filed: 07/15/21 12:09> Lab Results 07/14/21 07/14/21 07/14/21 Range/Units 19:34 19:34 19:35 WBC (4.8-10.8) X10*3/uL RBC (4.20-5.50) X10*6/uL Hgb (12.0-16.0) g/dl Hct (37-47) % MCV (80-98) fL MCH (27.0-33.0) pg MCHC (31.0-35.0) g/dl RDW (11.0-16.0) % Plt Count (160-400) X10*3/uL MPV (9.4-12.3) fL Immature Gran % (Auto) (0.0-0.4) % Neut % (Auto) (45-73) % Lymph % (Auto) (20-40) % [place] % (Auto) (2-11) % Eos % (Auto) (0-4) % Baso % (Auto) (0-2) % Lymph # (Auto) (1.2-4.9) X10*3/uL [place] # (Auto) (0.1-1.2) X10*3/uL Eos # (Auto) (0.0-0.4) X10*3/uL Baso # (Auto) (0.0-0.2) X10*3/uL Abs Immat Gran (auto) (0.00-0.03) X10*3/uL Absolute Neuts (auto) (2.0-8.3) X10*3/uL Absolute Nucleated RBC (0.0-0.012) X10*3/uL Nucleated RBC % (auto) (0.0-0.2) /100WBC Sodium (135-145) mmol/L Potassium (3.3-5.1) mmol/L Chloride (96-108) mmol/L Carbon Dioxide (22-29) mmol/L Anion Gap (12-20) BUN (9-16) mg/dL Creatinine (0.5-1.4) mg/dL Estim Creat Clear Calc Estimated GFR Random Glucose (60-115) mg/dL Calcium (8.4-10.2) mg/dL Urine Color STRAW Urine Appearance CLEAR Urine pH 6.0 (5.0-8.0) Ur Specific Winner <= 1.005 (1.005-1.025) Urine Protein NEG (NEG-TRACE) MG/DL Urine Glucose (UA) NEG (NEG) MG/DL Urine Ketones NEG (NEG) MG/DL Urine Blood NEG (NEG) Urine Nitrite NEG (NEG) Ur Leukocyte Esterase TRACE H (NEG) Urine RBC 0-2 (0) /HPF Urine WBC 1-4 (0-4) /HPF Ur Squamous Epith Cells 1+ /LPF Urine Bacteria TRACE /LPF Urine Opiates Screen Not Detected (Not Detect) Urine Fentanyl Screen POSITIVE H (Not Detect) Ur Barbiturates Screen Not Detected (Not Detect) Ur Phencyclidine Scrn Not Detected (Not Detect) Ur Amphetamines Screen Not Detected (Not Detect) U Benzodiazepines Scrn Not Detected (Not Detect) Urine Cocaine Screen Not Detected (Not Detect) U Marijuana (THC) Screen Not Detected (Not Detect) COVID-19 (NICK) Negative (Negative) COVID-19 Clin Com See Note 07/15/21 07/15/21 Range/Units 11:01 11:01 WBC 6.7 (4.8-10.8) X10*3/uL RBC 4.33 (4.20-5.50) X10*6/uL Hgb 13.3 (12.0-16.0) g/dl Hct 39.3 (37-47) % MCV 90.8 (80-98) fL MCH 30.7 (27.0-33.0) pg MCHC 33.8 (31.0-35.0) g/dl RDW 12.1 (11.0-16.0) % Plt Count 256 (160-400) X10*3/uL MPV 9.4 (9.4-12.3) fL Immature Gran % (Auto) 0.3 (0.0-0.4) % Neut % (Auto) 67.1 (45-73) % Lymph % (Auto) 22.0 (20-40) % [place] % (Auto) 8.5 (2-11) % Eos % (Auto) 1.8 (0-4) % Baso % (Auto) 0.3 (0-2) % Lymph # (Auto) 1.5 (1.2-4.9) X10*3/uL [place] # (Auto) 0.6 (0.1-1.2) X10*3/uL Eos # (Auto) 0.1 (0.0-0.4) X10*3/uL Baso # (Auto) 0.0 (0.0-0.2) X10*3/uL Abs Immat Gran (auto) 0.02 (0.00-0.03) X10*3/uL Absolute Neuts (auto) 4.5 (2.0-8.3) X10*3/uL Absolute Nucleated RBC 0.000 (0.0-0.012) X10*3/uL Nucleated RBC % (auto) 0.0 (0.0-0.2) /100WBC Sodium 139 (135-145) mmol/L Potassium 4.2 (3.3-5.1) mmol/L Chloride 103 (96-108) mmol/L Carbon Dioxide 24 (22-29) mmol/L Anion Gap 16 (12-20) BUN 11 (9-16) mg/dL Creatinine 0.77 (0.5-1.4) mg/dL Estim Creat Clear Calc 99.4 Estimated GFR > 60 Random Glucose 106 (60-115) mg/dL Calcium 9.5 D (8.4-10.2) mg/dL Urine Color Urine Appearance Urine pH (5.0-8.0) Ur Specific Winner (1.005-1.025) Urine Protein (NEG-TRACE) MG/DL Urine Glucose (UA) (NEG) MG/DL Urine Ketones (NEG) MG/DL Urine Blood (NEG) Urine Nitrite (NEG) Ur Leukocyte Esterase (NEG) Urine RBC (0) /HPF Urine WBC (0-4) /HPF Ur Squamous Epith Cells /LPF Urine Bacteria /LPF Urine Opiates Screen (Not Detect) Urine Fentanyl Screen (Not Detect) Ur Barbiturates Screen (Not Detect) Ur Phencyclidine Scrn (Not Detect) Ur Amphetamines Screen (Not Detect) U Benzodiazepines Scrn (Not Detect) Urine Cocaine Screen (Not Detect) U Marijuana (THC) Screen (Not Detect) COVID-19 (NICK) (Negative) COVID-19 Clin Com <Mojgan Hernandez DO - Last Filed: 07/15/21 06:49> Discharge Plan Discharge Clinical Impression: Borderline personality disorder, PTSD (post-traumatic stress disorder) Bipolar disorder Qualifiers: Active/Remission status: currently active Current bipolar episode type: depressed Current episode severity: severe Psychotic features: without psychotic features Qualified Code(s): F31.4 - Bipolar disorder, current episode depressed, severe, without psychotic features <Parish Ruano MD - Last Filed: 07/15/21 12:09> Prescriptions: No Action trazodone 150 mg tablet 150 mg PO BEDTIME RF: 0 polyethylene glycol 3350 [Miralax] 17 gram Powder In Packet 17 g PO DAILY PRN (Reason: Constipation) RF: 0 chlorpromazine 50 mg Tablet 50 mg PO DAILY PRN (Reason: Psychosis) RF: 0 metformin 500 mg tablet 1 tab PO BID RF: 0 atorvastatin 10 mg tablet 1 tab PO DAILY RF: 0 doxazosin 1 mg tablet 4 mg PO BEDTIME RF: 0 haloperidol 1 mg tablet 3 tab PO TID RF: 0 pantoprazole 40 mg tablet,delayed release (DR/EC) 1 tab PO BID RF: 0 verapamil 240 mg tablet extended release 1 tab PO BEDTIME RF: 0 montelukast 10 mg tablet 1 tab PO BEDTIME RF: 0 lisinopril 5 mg tablet 1 tab PO DAILY RF: 0 ferrous sulfate 325 mg (65 mg iron) tablet,delayed release (DR/EC) 1 tab PO DAILY RF: 0 Flovent HFA 110 mcg/actuation HFA aerosol inhaler 2 puff inhalation BID RF: 0 norethindrone (contraceptive) [Deblitane] 0.35 mg Tablet 0.35 mg PO DAILY RF: 0 haloperidol decanoate 100 mg/mL solution 1 ml IM Q4W RF: 0 albuterol sulfate [Ventolin HFA] 90 mcg/actuation HFA aerosol inhaler 2 puff inhalation Q4H PRN (Reason: Shortness Of Breath) RF: 0 benztropine 1 mg tablet 1 mg PO TID 30 Days Qty: 90 RF: 0 <Parish Ruano MD - Last Filed: 07/15/21 12:09>
[2021-07-14 22:38] VITALS: BP 112/75; PULSE 85
[2021-07-14] MEDS: traZODone HCL 50 MG TABLET 150 MG PO (22:38)
[2021-07-14] MEDS: HaloperidoL 1 MG TABLET 3 MG PO (22:38)
[2021-07-14] MEDS: Doxazosin Mesylate 2 MG TABLET 4 MG PO (22:38)
[2021-07-14] MEDS: LORazepam 1 MG TABLET 2 MG PO (22:38)
[2021-07-14] MEDS: metFORMIN HCl 500 MG TABLET PO (22:39)
[2021-07-14 22:40] VITALS: BP 112/75; PULSE 85
[2021-07-14] MEDS: VerapamiL HCL SR 240 MG TABLET.ER PO (22:40)
[2021-07-14] MEDS: Montelukast Sodium 10 MG TABLET PO (22:40)
[2021-07-14] MEDS: Benztropine Mesylate 1 MG TABLET PO (22:40)
[2021-07-14 22:41] VITALS: BP 112/75; PULSE 85; RESP 18; O2SAT 98
[2021-07-14] MEDS: Omeprazole 20 MG CAPSULE.DR PO (22:51)
[2021-07-14] MEDS: Fluticasone Propionate 100 MCG BLST.W.DEV 2 PUFF INHALE (22:51)
--- NOTE | 2021-07-15 | ECG_ITS ---
Test Reason : MEDCLEARANCE Blood Pressure : / mmHG Vent. Rate : 089 BPM Atrial Rate : 089 BPM P-R Int : 198 ms QRS Dur : 086 ms QT Int : 372 ms P-R-T Axes : 037 046 044 degrees QTc Int : 452 ms Normal sinus rhythm Nonspecific ST abnormality Abnormal ECG When compared with ECG of 10-JUL-2021 23:03, No significant change was found Referred By: Ander Ellis Electronically Signed By:JESU EASTMAN
[2021-07-15 00:41] VITALS: BP 111/72; PULSE 92; RESP 17; O2SAT 97
--- NOTE | 2021-07-15 06:21 | PC.NURSE ---
Patient slept through the night, no distress observed/reported, out of room x 2 for bathroom use and back, medication compliant, behavior appropriate mostly at times becomes tearful, patient was assessed by [facility]N in the community, disposition is section 12 inpatient bed search, vss, will continue to [id number].
[2021-07-15] MEDS: Omeprazole 20 MG CAPSULE.DR PO ×2 (06:28→15:56)
--- NOTE | 2021-07-15 07:08 | PC.NURSE ---
patient appears to remain asleep at present with even unlabored breaths, snores softly. patient appears in no distress
[2021-07-15] MEDS: Fluticasone Propionate 100 MCG BLST.W.DEV 2 PUFF INHALE (08:58)
[2021-07-15 08:59] VITALS: BP 111/78; PULSE 92
[2021-07-15] MEDS: metFORMIN HCl 500 MG TABLET PO ×2 (08:59→20:48)
[2021-07-15] MEDS: Benztropine Mesylate 1 MG TABLET PO ×3 (08:59→20:45)
[2021-07-15] MEDS: Atorvastatin Calcium 10 MG TABLET PO (08:59)
[2021-07-15] MEDS: lisinopriL 5 MG TABLET PO (08:59)
[2021-07-15] MEDS: HaloperidoL 1 MG TABLET 3 MG PO ×3 (08:59→20:45)
[2021-07-15] MEDS: Ferrous Sulfate 324 MG TABLET.DR PO (09:00)
[2021-07-15 09:44] VITALS: BP 120/83; PULSE 89; RESP 14; TEMP 36.6; O2SAT 95
[2021-07-15 11:05] LABS: MANUAL DIFF FLAG NO
[2021-07-15 11:07] LABS: Basophils Percent Auto 0.3 % (0-2); Eosinophils Absolute Auto 0.1 X10*3/uL (0.0-0.4); Eosinophils Percent Auto 1.8 % (0-4); Hematocrit 39.3 % (37-47); Hemoglobin 13.3 g/dl (12.0-16.0); Imm Gran Abs Auto 0.02 X10*3/uL (0.00-0.03); Imm Gran Pct Auto 0.3 % (0.0-0.4); Lymphocytes Absolute Auto 1.5 X10*3/uL (1.2-4.9); Mean Corpuscular HGB Conc 33.8 g/dl (31.0-35.0); Mean Corpuscular Hemoglobin 30.7 pg (27.0-33.0); Mean Corpuscular Volume 90.8 fL (80-98); Mean Platelet Volume 9.4 fL (9.4-12.3); Monocytes Absolute Auto 0.6 X10*3/uL (0.1-1.2); Monocytes Percent Auto 8.5 % (2-11); Neutrophils Absolute Auto 4.5 X10*3/uL (2.0-8.3); Neutrophils Percent Auto 67.1 % (45-73); Platelet Count 256 X10*3/uL (160-400); Red Blood Count 4.33 X10*6/uL (4.20-5.50); Red Cell Distribution Width 12.1 % (11.0-16.0); White Blood Count 6.7 X10*3/uL (4.8-10.8)
[2021-07-15 11:27] LABS: Anion Gap 16 (12-20); Blood Urea Nitrogen 11 mg/dL (9-16); Calcium 9.5 mg/dL (8.4-10.2); Carbon Dioxide 24 mmol/L (22-29); Chloride 103 mmol/L (96-108); Creatinine Clr Calc Pharmacy 99.4; Estimated Glomerular Filt Rate > 60; Glucose Random 106 mg/dL (60-115); Potassium 4.2 mmol/L (3.3-5.1); Sodium 139 mmol/L (135-145)
[2021-07-15] MEDS: Nicotine 21 MG PATCH.TD24 TRANSDERMA (11:54)
[2021-07-15] MEDS: chlorproMAZINE HCl 25 MG TABLET 50 MG PO ×2 (13:23→20:43)
[2021-07-15] MEDS: hydrOXYzine HCL 50 MG TABLET PO (15:56)
[2021-07-15 18:00] VITALS: BP 121/77; PULSE 78; RESP 18; TEMP 36.3; O2SAT 99
[2021-07-15] MEDS: traZODone HCL 50 MG TABLET 150 MG PO (20:44)
[2021-07-15 20:45] VITALS: BP 115/65; PULSE 100
[2021-07-15] MEDS: Doxazosin Mesylate 2 MG TABLET 4 MG PO (20:45)
[2021-07-15 20:48] VITALS: BP 115/65; PULSE 100
[2021-07-15] MEDS: Montelukast Sodium 10 MG TABLET PO (20:48)
[2021-07-15] MEDS: VerapamiL HCL SR 240 MG TABLET.ER PO (20:48)
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
[2021-07-16] MEDS: Omeprazole 20 MG CAPSULE.DR PO ×2 (05:50→16:03)
[2021-07-16 06:00] VITALS: BP 117/57; PULSE 90; RESP 16; TEMP 36.8
[2021-07-16] MEDS: Atorvastatin Calcium 10 MG TABLET PO (08:12)
[2021-07-16] MEDS: Ferrous Sulfate 324 MG TABLET.DR PO (08:12)
[2021-07-16] MEDS: Benztropine Mesylate 1 MG TABLET PO ×3 (08:12→20:31)
[2021-07-16] MEDS: HaloperidoL 1 MG TABLET 3 MG PO (08:12)
[2021-07-16] MEDS: metFORMIN HCl 500 MG TABLET PO ×2 (08:13→20:30)
[2021-07-16] MEDS: Fluticasone Propionate 100 MCG BLST.W.DEV 2 PUFF INHALE ×2 (08:15→20:37)
[2021-07-16 08:16] VITALS: BP 117/57; PULSE 88
[2021-07-16] MEDS: chlorproMAZINE HCl 25 MG TABLET 50 MG PO ×2 (10:32→19:49)
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
[2021-07-16] MEDS: Nicotine 21 MG PATCH.TD24 TRANSDERMA (12:33)
[2021-07-16] MEDS: HaloperidoL 1 MG TABLET 4 MG PO ×2 (14:15→20:32)
[2021-07-16] MEDS: hydrOXYzine HCL 50 MG TABLET PO (16:03)
[2021-07-16 18:00] VITALS: BP 128/80; PULSE 66; RESP 20; TEMP 36.9; O2SAT 99
[2021-07-16 20:29] VITALS: BP 123/82; PULSE 88
[2021-07-16] MEDS: VerapamiL HCL SR 240 MG TABLET.ER PO (20:29)
[2021-07-16 20:31] VITALS: BP 123/82; PULSE 88
[2021-07-16] MEDS: traZODone HCL 50 MG TABLET 150 MG PO (20:31)
[2021-07-16] MEDS: Doxazosin Mesylate 2 MG TABLET 4 MG PO (20:31)
[2021-07-16] MEDS: Montelukast Sodium 10 MG TABLET PO (20:33)
[2021-07-17 06:00] VITALS: BP 114/75; PULSE 84; RESP 18; TEMP 36.3; O2SAT 95
[2021-07-17] MEDS: Omeprazole 20 MG CAPSULE.DR PO ×2 (06:30→17:48)
[2021-07-17] MEDS: Nicotine 21 MG PATCH.TD24 TRANSDERMA (08:43)
[2021-07-17] MEDS: Ferrous Sulfate 324 MG TABLET.DR PO (08:44)
[2021-07-17] MEDS: Atorvastatin Calcium 10 MG TABLET PO (08:44)
[2021-07-17] MEDS: metFORMIN HCl 500 MG TABLET PO ×2 (08:44→20:07)
[2021-07-17] MEDS: HaloperidoL 1 MG TABLET 4 MG PO ×3 (08:45→20:09)
[2021-07-17] MEDS: Benztropine Mesylate 1 MG TABLET PO ×3 (08:45→20:07)
[2021-07-17 08:46] VITALS: BP 106/71; PULSE 86
[2021-07-17] MEDS: lisinopriL 5 MG TABLET PO (08:46)
[2021-07-17] MEDS: Fluticasone Propionate 100 MCG BLST.W.DEV 2 PUFF INHALE ×2 (10:22→20:16)
[2021-07-17] MEDS: chlorproMAZINE HCl 25 MG TABLET 50 MG PO ×2 (10:33→18:02)
--- NOTE | 2021-07-17 11:39 | P.PNPSI_ITS ---
Subjective Subjective Date of Service: 07/17/21 Reason For Visit: SI Subjective Notes: Conditional Voluntary Medical Problems Affecting Mental Status: No Interim History: pt cut self superficially with juice cover - Reports ongoing si and ah- Medication Compliance: Yes Side effects from medications: No (reports tolerated in haldol and thorazine) Attending Groups: Intermittent Review of Systems Acute medical concerns: No Medical Review of Systems: unchanged Mental Status Exam Mental Status Exam Patient Appearance: Fatigued and Disheveled Patient Orientation: Person, Place, Time and Situation Level of Consciousness: Awake Patient Behavior: Dependent and Passive Mood Description: Anxious and Sad Affect Description: Withdrawn and Flat Patient Cognition Impaired: No Ability to Follow Directions: Fair Speech Pattern: Clear Hallucinations: Auditory Thought Process: Goal Oriented Thought Content: positive for Perseveration and positive for Suicidal Ideation Depressive Symptoms: Increased Anxiety, Diff. Making Decisions, Hopelessness and Thoughts of /Suicide Abnormal Motor Activity Signs and Symptoms: Psychomotor Retardation Judgement: Fair Diagnostics Vital Signs (24Hr): Vital Signs - 24 hr 07/16/21 18:00 07/16/21 20:29 07/16/21 20:31 Temperature 98.4 F Pulse Rate 66 88 88 Respiratory Rate 20 Blood Pressure 128/80 123/82 123/82 Pulse Oximetry 99 07/17/21 06:00 07/17/21 08:46 Temperature 97.3 F Pulse Rate 84 86 Respiratory Rate 18 Blood Pressure 114/75 106/71 Pulse Oximetry 95 Body Mass Index 29.9 Labs Results: 07/15/21 11:01 07/15/21 11:01 EKG EKG: reviewed EKG Comment: 07/15 qtc 452 Medications Medications Current Medications Acetaminophen (Acetaminophen 325 Mg Tablet) 650 mg PO Q6H PRN PRN Reason: Headache/Pain Mild Scale (1-3) Al Hydroxide/Mg Hydroxide (Magnesium Hydrox/Alum Hydrox 30 Ml Oral.Susp) 30 ml PO Q6H PRN PRN Reason: Heartburn/Nausea Albuterol Sulfate (Albuterol Sulfate 90 Mcg 8 Gm Inhaler) 2 puff INHALE Q4H PRN PRN Reason: Shortness Of Breath Atorvastatin Calcium (Atorvastatin Calcium 10 Mg Tablet) 10 mg PO DAILY [facility] Last Admin: 07/17/21 08:44 Dose: 10 mg Documented by: Benztropine Mesylate (Benztropine Mesylate 1 Mg Tablet) 1 mg PO TID [facility] Last Admin: 07/17/21 08:45 Dose: 1 mg Documented by: Chlorpromazine HCl (Chlorpromazine Hcl 25 Mg Tablet) 50 mg PO BID PRN PRN Reason: Psychosis Last Admin: 07/17/21 10:33 Dose: 50 mg Documented by: Doxazosin Mesylate (Doxazosin Mesylate 2 Mg Tablet) 4 mg PO BEDTIME [facility]; Protocol Last Admin: 07/16/21 20:31 Dose: 4 mg Documented by: Ferrous Sulfate (Ferrous Sulfate 324 Mg Tablet.) 324 mg PO DAILY [facility] Last Admin: 07/17/21 08:44 Dose: 324 mg Documented by: Fluticasone Propionate (Fluticasone Propionate 100 Mcg Blst.W.Dev) 2 puff INHALE RBID [facility] Last Admin: 07/17/21 10:22 Dose: 2 puff Documented by: Haloperidol (Haloperidol 1 Mg Tablet) 4 mg PO TID [facility] Last Admin: 07/17/21 08:45 Dose: 4 mg Documented by: Haloperidol Decanoate (Haloperidol Decanoate 50 Mg/Ml Ampul) mg IM Q4W [facility] Hydroxyzine HCl (Hydroxyzine Hcl 50 Mg Tablet) 50 mg PO Q6H PRN PRN Reason: Anxiety Last Admin: 07/16/21 16:03 Dose: 50 mg Documented by: Lisinopril (Lisinopril 5 Mg Tablet) 5 mg PO DAILY [facility]; Protocol Last Admin: 07/17/21 08:46 Dose: 5 mg Documented by: Magnesium Hydroxide (Milk Of Magnesia 30 Ml Oral.Susp) 30 ml PO DAILY PRN PRN Reason: Constipation Metformin HCl (Metformin Hcl 500 Mg Tablet) 500 mg PO BID [facility] Last Admin: 07/17/21 08:44 Dose: 500 mg Documented by: Montelukast Sodium (Montelukast Sodium 10 Mg Tablet) 10 mg PO BEDTIME [facility] Last Admin: 07/16/21 20:33 Dose: 10 mg Documented by: Nicotine (Nicotine 21 Mg Patch.Td24) 21 mg TRANSDERMA DAILY [facility] Last Admin: 07/17/21 08:43 Dose: 21 mg Documented by: Omeprazole (Omeprazole 20 Mg Capsule.) 20 mg PO BID@0630,1630 [facility] Last Admin: 07/17/21 06:30 Dose: 20 mg Documented by: Polyethylene Glycol (Polyethylene Glycol 3350 17 Gm Powd.Pack) 17 gm PO DAILY PRN PRN Reason: constipation Trazodone HCl (Trazodone Hcl 50 Mg Tablet) 150 mg PO BEDTIME [facility] Last Admin: 07/16/21 20:31 Dose: 150 mg Documented by: Trazodone HCl (Trazodone Hcl 50 Mg Tablet) 50 mg PO BEDTIME PRN PRN Reason: Insomnia Verapamil HCl (Verapamil Hcl Sr 240 Mg Tablet.Er) 240 mg PO BEDTIME [facility]; Protocol Last Admin: 07/16/21 20:29 Dose: 240 mg Documented by: Allergies Allergies Allergy/AdvReac Type Severity Reaction Status Date / Time Fish Containing Products Allergy Severe ANAPHYLAXIS Verified 06/15/21 17:06 codeine [Codeine] Allergy Unknown RASH Verified 06/15/21 17:06 Penicillins Allergy Unknown RASH Verified 06/15/21 17:06 prednisone [Prednisone] Allergy Unknown RASH Verified 06/15/21 17:06 Sulfa (Sulfonamide Allergy Unknown RASH Verified 06/15/21 17:06 Antibiotics) [Sulfa (Sulfonamides)] azithromycin [AZITHROMYCIN] AdvReac Severe RASH Verified 06/15/21 17:06 nicotine AdvReac Unknown HEART Verified 06/15/21 17:06 PALPITATION TO NICOTINE GUM Seafood Allergy Severe ANAPHYLAXIS Uncoded 07/01/20 16:44 From Geodon Allergy Unknown DYSURIA, Uncoded 07/01/20 16:44 RASH Assessment & Plan Assessment & Plan (1) Bipolar II disorder with melancholic features: Status: Acute Code(s): F31.81 - Bipolar II disorder (2) Borderline personality disorder: Status: Chronic Code(s): F60.3 - Borderline personality disorder (3) PTSD (post-traumatic stress disorder): Status: Chronic Code(s): F43.10 - Post-traumatic stress disorder, unspecified Assessment and Plan: ongoing si/ah taking higher haldol and bid prn thorazine encouraged ongoing coping/checking in with nursing staff Greater than 50% of the session was spent on counseling and/or coordination of care Patient educated on: medication risk/benefits and therapeutic strategies Informed Consent: understands Reason for contiued inpatient stay Substantial Risk for: inability to function and rapid decompensation
[2021-07-17] MEDS: Acetaminophen 325 MG TABLET 650 MG PO (13:43)
[2021-07-17] MEDS: hydrOXYzine HCL 50 MG TABLET PO (18:03)
[2021-07-17 20:00] VITALS: BP 120/60; PULSE 73; TEMP 37
[2021-07-17 20:06] VITALS: BP 120/60; PULSE 73
[2021-07-17] MEDS: VerapamiL HCL SR 240 MG TABLET.ER PO (20:06)
[2021-07-17 20:07] VITALS: BP 120/60; PULSE 73
[2021-07-17] MEDS: Doxazosin Mesylate 2 MG TABLET 4 MG PO (20:07)
[2021-07-17] MEDS: Montelukast Sodium 10 MG TABLET PO (20:07)
[2021-07-17] MEDS: traZODone HCL 50 MG TABLET 150 MG PO (20:08)
[2021-07-18 06:00] VITALS: BP 107/60; PULSE 90; RESP 18; TEMP 36.4; O2SAT 97
[2021-07-18] MEDS: Omeprazole 20 MG CAPSULE.DR PO ×2 (06:10→16:19)
[2021-07-18] MEDS: Nicotine 21 MG PATCH.TD24 TRANSDERMA (08:27)
[2021-07-18] MEDS: polyethylene glycoL 3350 17 GM POWD.PACK PO (08:28)
[2021-07-18] MEDS: HaloperidoL 1 MG TABLET 4 MG PO ×3 (08:28→20:06)
[2021-07-18 08:29] VITALS: BP 107/60; PULSE 90
[2021-07-18] MEDS: lisinopriL 5 MG TABLET PO (08:29)
[2021-07-18] MEDS: metFORMIN HCl 500 MG TABLET PO ×2 (08:29→20:06)
[2021-07-18] MEDS: Atorvastatin Calcium 10 MG TABLET PO (08:30)
[2021-07-18] MEDS: Benztropine Mesylate 1 MG TABLET PO ×3 (08:30→20:06)
[2021-07-18] MEDS: Ferrous Sulfate 324 MG TABLET.DR PO (08:31)
[2021-07-18] MEDS: Fluticasone Propionate 100 MCG BLST.W.DEV 2 PUFF INHALE ×2 (08:36→20:09)
--- NOTE | 2021-07-18 09:16 | PC.NURSE ---
spoke with custodial this morning. argelia last recieved her haldol dec on jun 18. 100mg im. due today. will notify
[2021-07-18] MEDS: chlorproMAZINE HCl 25 MG TABLET 50 MG PO ×2 (09:30→16:20)
[2021-07-18 20:02] VITALS: BP 106/68; PULSE 101
[2021-07-18] MEDS: VerapamiL HCL SR 240 MG TABLET.ER PO (20:02)
[2021-07-18 20:06] VITALS: BP 106/68; PULSE 101
[2021-07-18] MEDS: Montelukast Sodium 10 MG TABLET PO (20:06)
[2021-07-18] MEDS: traZODone HCL 50 MG TABLET 150 MG PO (20:06)
[2021-07-18] MEDS: Doxazosin Mesylate 2 MG TABLET 4 MG PO (20:06)
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
[2021-07-18] MEDS: hydrOXYzine HCL 50 MG TABLET PO (23:14)
[2021-07-19] VITALS (7 sets, daily range): BP systolic 101–121; BP diastolic 60–68; PULSE 79–96; RESP 18; TEMP 36.3; O2SAT 97
[2021-07-19] MEDS: hydrOXYzine HCL 50 MG TABLET PO ×2 (04:59→10:40)
[2021-07-19] MEDS: Omeprazole 20 MG CAPSULE.DR PO ×2 (04:59→16:38)
[2021-07-19] MEDS: polyethylene glycoL 3350 17 GM POWD.PACK PO (08:26)
[2021-07-19] MEDS: Nicotine 21 MG PATCH.TD24 TRANSDERMA (08:26)
[2021-07-19] MEDS: HaloperidoL 1 MG TABLET 4 MG PO ×3 (08:27→20:51)
[2021-07-19] MEDS: cloNIDine HCL 0.1 MG TABLET 0.05 MG PO ×2 (08:28→14:11)
[2021-07-19] MEDS: metFORMIN HCl 500 MG TABLET PO ×2 (08:31→20:51)
[2021-07-19] MEDS: Ferrous Sulfate 324 MG TABLET.DR PO (08:32)
[2021-07-19] MEDS: Atorvastatin Calcium 10 MG TABLET PO (08:32)
[2021-07-19] MEDS: lisinopriL 5 MG TABLET PO (08:32)
[2021-07-19] MEDS: Benztropine Mesylate 1 MG TABLET PO ×3 (08:32→20:50)
[2021-07-19] MEDS: Fluticasone Propionate 100 MCG BLST.W.DEV 2 PUFF INHALE ×2 (08:33→20:56)
[2021-07-19] MEDS: chlorproMAZINE HCl 25 MG TABLET 50 MG PO ×2 (11:51→17:25)
--- NOTE | 2021-07-19 17:52 | HO.PSYCHPN ---
Subjective Subjective Date of Service: 07/19/21 Reason For Visit: SI Interim History: Earlier in the day, patient reports that she remains with suicidal ideation and urges to self-harm, though she has refrained. She also is intermittently tearful saying she is tired of trying so hard. However later in the day patient reports that she is feeling better and that additional Thorazine p.r.n. has been helping. She says that despite her desire to head [place], she has continued to resist the urge. Patient says that she is thinking maybe she is ready to return home. Nurse Assistant and patient discussed how hospitalization plays into her overall treatment and patient said she thinks that coming to the hospital is more likely causing her to go backwards in her progress. Nurse Assistant discussed that perhaps it is possible that she could use the same coping tools she has used on the unit to avoid self-harm at her long-term to help her tolerate her painful emotions, stay safe and avoid coming to the hospital. Patient agrees that this is preferable and reiterates that she thinks coming to the hospital is likely causing her to regress. Patient shared with administrative underwriter the time she spent in [facility] where she learned to ride horses with her adopted grandparents. She says that when stressed, she goes to this safe place in her mind which is a calming experience. Mental Status Exam Mental Status Exam Narrative: ?Patient Appearance:?unkempt Patient Orientation:?Person, Place, Time and Situation Level of Consciousness:?Awake Patient Behavior:?cooperative; intermittently tearful Mood Description: anxious, depressed Affect Description:?labile Patient Cognition Impaired:?No Ability to Follow Directions:?Fair Speech Pattern:?Clear Hallucinations:?Auditory Hallucinations Thought Process:?Goal Oriented Thought Content:?Perseveration; Suicidal Ideation; no HI Depressive Symptoms:?Increased Anxiety, Diff. Making Decisions, Hopelessness and Thoughts of /Suicide Abnormal Motor Activity Signs and Symptoms:?Psychomotor Retardation Judgment:?impaired, but improving Diagnostics Vital Signs (24Hr): Vital Signs - 24 hr 07/18/21 20:02 07/18/21 20:06 07/19/21 06:00 Temperature 97.4 F Pulse Rate 101 H 101 H 82 Respiratory Rate 18 Blood Pressure 106/68 106/68 103/61 Pulse Oximetry 97 07/19/21 08:28 07/19/21 08:32 07/19/21 14:11 Temperature Pulse Rate 79 79 96 Respiratory Rate Blood Pressure 101/60 101/60 105/65 Pulse Oximetry Body Mass Index 29.9 Labs Results: 07/15/21 11:01 07/15/21 11:01 Medications Medications Current Medications Acetaminophen (Acetaminophen 325 Mg Tablet) 650 mg PO Q6H PRN PRN Reason: Headache/Pain Mild Scale (1-3) Last Admin: 07/17/21 13:43 Dose: 650 mg Documented by: Al Hydroxide/Mg Hydroxide (Magnesium Hydrox/Alum Hydrox 30 Ml Oral.Susp) 30 ml PO Q6H PRN PRN Reason: Heartburn/Nausea Albuterol Sulfate (Albuterol Sulfate 90 Mcg 8 Gm Inhaler) 2 puff INHALE Q4H PRN PRN Reason: Shortness Of Breath Atorvastatin Calcium (Atorvastatin Calcium 10 Mg Tablet) 10 mg PO DAILY [facility] Last Admin: 07/19/21 08:32 Dose: 10 mg Documented by: Benztropine Mesylate (Benztropine Mesylate 1 Mg Tablet) 1 mg PO TID [facility] Last Admin: 07/19/21 14:11 Dose: 1 mg Documented by: Chlorpromazine HCl (Chlorpromazine Hcl 25 Mg Tablet) 50 mg PO QID PRN PRN Reason: Psychosis Last Admin: 07/19/21 17:25 Dose: 50 mg Documented by: Clonidine HCl (Clonidine Hcl 0.1 Mg Tablet) 0.05 mg PO BID@0830,1430 [facility]; Protocol Last Admin: 07/19/21 14:11 Dose: 0.05 mg Documented by: Doxazosin Mesylate (Doxazosin Mesylate 2 Mg Tablet) 4 mg PO BEDTIME [facility]; Protocol Last Admin: 07/18/21 20:06 Dose: 4 mg Documented by: Ferrous Sulfate (Ferrous Sulfate 324 Mg Tablet.) 324 mg PO DAILY [facility] Last Admin: 07/19/21 08:32 Dose: 324 mg Documented by: Fluticasone Propionate (Fluticasone Propionate 100 Mcg Blst.W.Dev) 2 puff INHALE RBID [facility] Last Admin: 07/19/21 08:33 Dose: 2 puff Documented by: Haloperidol (Haloperidol 1 Mg Tablet) 4 mg PO TID [facility] Last Admin: 07/19/21 14:11 Dose: 4 mg Documented by: Hydroxyzine HCl (Hydroxyzine Hcl 50 Mg Tablet) 50 mg PO Q6H PRN PRN Reason: Anxiety Last Admin: 07/19/21 10:40 Dose: 50 mg Documented by: Lisinopril (Lisinopril 5 Mg Tablet) 5 mg PO DAILY [facility]; Protocol Last Admin: 07/19/21 08:32 Dose: 5 mg Documented by: Magnesium Hydroxide (Milk Of Magnesia 30 Ml Oral.Susp) 30 ml PO DAILY PRN PRN Reason: Constipation Metformin HCl (Metformin Hcl 500 Mg Tablet) 500 mg PO BID [facility] Last Admin: 07/19/21 08:31 Dose: 500 mg Documented by: Montelukast Sodium (Montelukast Sodium 10 Mg Tablet) 10 mg PO BEDTIME [facility] Last Admin: 07/18/21 20:06 Dose: 10 mg Documented by: Nicotine (Nicotine 21 Mg Patch.Td24) 21 mg TRANSDERMA DAILY [facility] Last Admin: 07/19/21 08:26 Dose: 21 mg Documented by: Omeprazole (Omeprazole 20 Mg Capsule.Dr) 20 mg PO BID@0630,1630 [facility] Last Admin: 07/19/21 16:38 Dose: 20 mg Documented by: Polyethylene Glycol (Polyethylene Glycol 3350 17 Gm Powd.Pack) 17 gm PO DAILY [facility] Last Admin: 07/19/21 08:26 Dose: 17 gm Documented by: Trazodone HCl (Trazodone Hcl 50 Mg Tablet) 150 mg PO BEDTIME [facility] Last Admin: 07/18/21 20:06 Dose: 150 mg Documented by: Trazodone HCl (Trazodone Hcl 50 Mg Tablet) 50 mg PO BEDTIME PRN PRN Reason: Insomnia Verapamil HCl (Verapamil Hcl Sr 240 Mg Tablet.Er) 240 mg PO BEDTIME [facility]; Protocol Last Admin: 07/18/21 20:02 Dose: 240 mg Documented by: Allergies Allergies Allergy/AdvReac Type Severity Reaction Status Date / Time Fish Containing Products Allergy Severe ANAPHYLAXIS Verified 06/15/21 17:06 codeine [Codeine] Allergy Unknown RASH Verified 06/15/21 17:06 Penicillins Allergy Unknown RASH Verified 06/15/21 17:06 prednisone [Prednisone] Allergy Unknown RASH Verified 06/15/21 17:06 Sulfa (Sulfonamide Allergy Unknown RASH Verified 06/15/21 17:06 Antibiotics) [Sulfa (Sulfonamides)] azithromycin [AZITHROMYCIN] AdvReac Severe RASH Verified 06/15/21 17:06 nicotine AdvReac Unknown HEART Verified 06/15/21 17:06 PALPITATION TO NICOTINE GUM Seafood Allergy Severe ANAPHYLAXIS Uncoded 07/01/20 16:44 From Geodon Allergy Unknown DYSURIA, Uncoded 07/01/20 16:44 RASH Assessment & Plan Assessment & Plan (1) Bipolar II disorder with melancholic features: Status: Acute Code(s): F31.81 - Bipolar II disorder (2) Borderline personality disorder: Status: Chronic Code(s): F60.3 - Borderline personality disorder (3) PTSD (post-traumatic stress disorder): Status: Chronic Code(s): F43.10 - Post-traumatic stress disorder, unspecified Assessment and Plan: Impression: Severe PTSD history, borderline personality disorder, mood congruent auditory hallucinations; chronic SI ongoing si/ah Patient is starting to wonder if coming to the hospital is causing regression and that it might be to her advantage to work on coping with painful emotions at her long-term, rather than coming to the hospital. Patient's only auditory hallucination is of her father and how it relates to her past trauma; it is administrative underwriter's understanding that patient is diagnosed with PTSD, depression and borderline personality disorder but not with psychotic disorder. Bipolar is listed as diagnosis and while this history is also not clear, will continue to treat with mood stabilizing medications. Patient remains on Haldol p.o., however will continue to hold off restarting Haldol Dec since it has done little to stop auditory hallucinations; of note, patient is not on an SSRI or SNRI which are typically used as first-line treatments for PTSD. Will see if can get furhter hx and review med regimen plan holding off Haldol Dec for now to which pt agrees as it's unclear if effective continue Haldol prn for now INCREASED QID prn thorazine; may consider replacing Haldol with Thorazine review med history encouraged ongoing coping/checking in with nursing staff Greater than 50% of the session was spent on counseling and/or coordination of care Reason for contiued inpatient stay Substantial Risk for: med/psych decompensation
[2021-07-19] MEDS: VerapamiL HCL SR 240 MG TABLET.ER PO (20:49)
[2021-07-19] MEDS: Doxazosin Mesylate 2 MG TABLET 4 MG PO (20:50)
[2021-07-19] MEDS: Montelukast Sodium 10 MG TABLET PO (20:51)
[2021-07-19] MEDS: traZODone HCL 50 MG TABLET 150 MG PO (20:51)
[2021-07-20 06:00] VITALS: BP 117/58; PULSE 91; TEMP 36.3; O2SAT 97
[2021-07-20 08:55] VITALS: BP 115/68; PULSE 75
[2021-07-20] MEDS: Atorvastatin Calcium 10 MG TABLET PO (08:55)
[2021-07-20] MEDS: cloNIDine HCL 0.1 MG TABLET 0.05 MG PO ×2 (08:55→14:17)
[2021-07-20] MEDS: Benztropine Mesylate 1 MG TABLET PO (08:55)
[2021-07-20] MEDS: metFORMIN HCl 500 MG TABLET PO ×2 (09:03→21:40)
[2021-07-20] MEDS: HaloperidoL 1 MG TABLET 4 MG PO ×2 (09:03→21:41)
[2021-07-20] MEDS: Omeprazole 20 MG CAPSULE.DR PO ×2 (09:03→16:47)
[2021-07-20 09:04] VITALS: BP 115/68; PULSE 75
[2021-07-20] MEDS: Ferrous Sulfate 324 MG TABLET.DR PO (09:04)
[2021-07-20] MEDS: Nicotine 21 MG PATCH.TD24 TRANSDERMA (09:04)
[2021-07-20] MEDS: lisinopriL 5 MG TABLET PO (09:04)
[2021-07-20] MEDS: polyethylene glycoL 3350 17 GM POWD.PACK PO (09:05)
[2021-07-20] MEDS: Fluticasone Propionate 100 MCG BLST.W.DEV 2 PUFF INHALE ×2 (10:03→21:46)
--- NOTE | 2021-07-20 11:16 | P.PNPSI_ITS ---
Subjective Subjective Date of Service: 07/20/21 Reason For Visit: SI Interim History: pt reports no nightmares last night and AH for a bit lessened in intensity, however she says AH is coming back again. She has been able to resist self harm urges and would like to remain off Haldol dec. milk inspector reviewed pt history and she denies any hx of manic type symptoms or behaviors. [employer]othes Police Officer also discussed case with staff on the unit who know her well and for over 7+ years, including nurse manager urgent care and SW, who agree that patient has never presented with manic behaviors or had manic episodes. Pt says she's had so many diagnoses over her life time but thinks she really only has depression and PTSD from trauma. specification writer agrees that this is most likely and discussed med changes to focus on treating PtSD/depression rather that bipolar/schizophrenia to which pt fully agrees. to that end, pt agrees to following: -lower Haldol PO down from 4mg TID to BID (which cuts in half; pt said only been on haldol for months and less than 1 year) -lower cogentin to 0.5mg tid down from 1 mg TID (for what she describes as akathesia) -Will start Prozac 10 mg and titrate as tolerated -switch Doxasoin back to prazosin which she says worked better. Mental Status Exam Mental Status Exam Narrative: Patient Appearance:?unkempt Patient Orientation:?Person, Place, Time and Situation Level of Consciousness:?Awake Patient Behavior:?cooperative; intermittently tearful Mood Description: anxious, depressed but a little less so Affect Description:?calmer Patient Cognition Impaired:?No Ability to Follow Directions:?Fair Speech Pattern:?Clear Hallucinations:?Auditory Hallucinations Thought Process:?Goal Oriented Thought Content:?Perseveration; Suicidal Ideation remains; urges to self harm (though less intense); no HI Depressive Symptoms:?Increased Anxiety, Diff. Making Decisions, Hopelessness and Thoughts of /Suicide Abnormal Motor Activity Signs and Symptoms:?Psychomotor Retardation Judgment:?impaired, but improving Diagnostics Vital Signs (24Hr): Vital Signs - 24 hr 07/19/21 14:11 07/19/21 20:45 07/19/21 20:49 Temperature 97.3 F Pulse Rate 96 94 95 Blood Pressure 105/65 121/68 121/68 Pulse Oximetry 97 07/19/21 20:50 07/20/21 08:55 07/20/21 09:04 Temperature Pulse Rate 94 75 75 Blood Pressure 121/68 115/68 115/68 Pulse Oximetry Body Mass Index 29.9 Labs Results: 07/15/21 11:01 07/15/21 11:01 Medications Medications Current Medications Acetaminophen (Acetaminophen 325 Mg Tablet) 650 mg PO Q6H PRN PRN Reason: Headache/Pain Mild Scale (1-3) Last Admin: 07/17/21 13:43 Dose: 650 mg Documented by: Al Hydroxide/Mg Hydroxide (Magnesium Hydrox/Alum Hydrox 30 Ml Oral.Susp) 30 ml PO Q6H PRN PRN Reason: Heartburn/Nausea Albuterol Sulfate (Albuterol Sulfate 90 Mcg 8 Gm Inhaler) 2 puff INHALE Q4H PRN PRN Reason: Shortness Of Breath Atorvastatin Calcium (Atorvastatin Calcium 10 Mg Tablet) 10 mg PO DAILY [facility] Last Admin: 07/20/21 08:55 Dose: 10 mg Documented by: Benztropine Mesylate (Benztropine Mesylate 0.5 Mg Tablet) 0.5 mg PO TID [facility] Chlorpromazine HCl (Chlorpromazine Hcl 25 Mg Tablet) 50 mg PO QID PRN PRN Reason: Psychosis Last Admin: 07/19/21 17:25 Dose: 50 mg Documented by: Clonidine HCl (Clonidine Hcl 0.1 Mg Tablet) 0.05 mg PO BID@0830,1430 [facility]; Protocol Last Admin: 07/20/21 08:55 Dose: 0.05 mg Documented by: Ferrous Sulfate (Ferrous Sulfate 324 Mg Tablet.Dr) 324 mg PO DAILY [facility] Last Admin: 07/20/21 09:04 Dose: 324 mg Documented by: Fluoxetine HCl (Fluoxetine Hcl 10 Mg Capsule) 10 mg PO DAILY [facility] Fluticasone Propionate (Fluticasone Propionate 100 Mcg Blst.W.Dev) 2 puff INHALE RBID [facility] Last Admin: 07/20/21 10:03 Dose: 2 puff Documented by: Haloperidol (Haloperidol 1 Mg Tablet) 4 mg PO BID [facility] Hydroxyzine HCl (Hydroxyzine Hcl 50 Mg Tablet) 50 mg PO Q6H PRN PRN Reason: Anxiety Last Admin: 07/19/21 10:40 Dose: 50 mg Documented by: Lisinopril (Lisinopril 5 Mg Tablet) 5 mg PO DAILY [facility]; Protocol Last Admin: 07/20/21 09:04 Dose: 5 mg Documented by: Magnesium Hydroxide (Milk Of Magnesia 30 Ml Oral.Susp) 30 ml PO DAILY PRN PRN Reason: Constipation Metformin HCl (Metformin Hcl 500 Mg Tablet) 500 mg PO BID [facility] Last Admin: 07/20/21 09:03 Dose: 500 mg Documented by: Montelukast Sodium (Montelukast Sodium 10 Mg Tablet) 10 mg PO BEDTIME [facility] Last Admin: 07/19/21 20:51 Dose: 10 mg Documented by: Nicotine (Nicotine 21 Mg Patch.Td24) 21 mg TRANSDERMA DAILY [facility] Last Admin: 07/20/21 09:04 Dose: 21 mg Documented by: Omeprazole (Omeprazole 20 Mg Capsule.Dr) 20 mg PO BID@0630,1630 [facility] Last Admin: 07/20/21 09:03 Dose: 20 mg Documented by: Polyethylene Glycol (Polyethylene Glycol 3350 17 Gm Powd.Pack) 17 gm PO DAILY [facility] Last Admin: 07/20/21 09:05 Dose: 17 gm Documented by: Prazosin HCl (Prazosin Hcl 1 Mg Capsule) 1 mg PO BEDTIME [facility]; Protocol Trazodone HCl (Trazodone Hcl 50 Mg Tablet) 150 mg PO BEDTIME [facility] Last Admin: 07/19/21 20:51 Dose: 150 mg Documented by: Trazodone HCl (Trazodone Hcl 50 Mg Tablet) 50 mg PO BEDTIME PRN PRN Reason: Insomnia Verapamil HCl (Verapamil Hcl Sr 240 Mg Tablet.Er) 240 mg PO BEDTIME [facility]; Protocol Last Admin: 07/19/21 20:49 Dose: 240 mg Documented by: Allergies Allergies Allergy/AdvReac Type Severity Reaction Status Date / Time Fish Containing Products Allergy Severe ANAPHYLAXIS Verified 06/15/21 17:06 codeine [Codeine] Allergy Unknown RASH Verified 06/15/21 17:06 Penicillins Allergy Unknown RASH Verified 06/15/21 17:06 prednisone [Prednisone] Allergy Unknown RASH Verified 06/15/21 17:06 Sulfa (Sulfonamide Allergy Unknown RASH Verified 06/15/21 17:06 Antibiotics) [Sulfa (Sulfonamides)] azithromycin [AZITHROMYCIN] AdvReac Severe RASH Verified 06/15/21 17:06 nicotine AdvReac Unknown HEART Verified 06/15/21 17:06 PALPITATION TO NICOTINE GUM Seafood Allergy Severe ANAPHYLAXIS Uncoded 07/01/20 16:44 From Geodon Allergy Unknown DYSURIA, Uncoded 07/01/20 16:44 RASH Assessment & Plan Assessment & Plan (1) PTSD (post-traumatic stress disorder): Status: Chronic Code(s): F43.10 - Post-traumatic stress disorder, unspecified (2) Borderline personality disorder: Status: Chronic Code(s): F60.3 - Borderline personality disorder (3) Bipolar II disorder with melancholic features: Status: Ruled-out Code(s): F31.81 - Bipolar II disorder Assessment and Plan: currently will leave as rule out as other psychiatric illnesses (depression/ptsd/borderline PD) seem fully adequate to explain symptoms (4) MDD (major depressive disorder), recurrent episode, severe: Status: Acute Code(s): F33.2 - Major depressive disorder, recurrent severe without psychotic features Assessment and Plan: Impression: Severe PTSD, depression history, borderline personality disorder, mood congruent auditory hallucinations; chronic intermittent SI presents for ongoing si/ah HOSPITAL COURSE/REASONING: Patient is starting to wonder if coming to the hospital is causing regression and that it might be to her advantage to work on coping with painful emotions at her detention, rather than coming to the hospital. Patient's only auditory hallucination is of her father's voice and and how it relates to her past trauma; no other psychotic symptoms at all. Patient is diagnosed with PTSD, depression and borderline personality disorder all of which could be etiology of such AH; to writers knowledge, no dx of a psychotic disorder. Pt reports Haldol started a few months ago (<1 yr) and been increased however it has not removed AH (save minimally after SEP, however patient is ambivalent if this is true). Bipolar is listed as diagnosis however hx does not seem to support it. Conversely, patient is not on an SSRI or SNRI which are typically used as first-line treatments for PTSD. [employer] Clothes Police Officer reviewed pt history again with patient and she denies any hx of manic type symptoms or behaviors. [employer] Police Officer also discussed case with staff on the unit who know her well and for over 7+ years, including nurse manager urgent care and SW, who agree that patient has never presented with manic behaviors or had manic episodes; they also agree that patient has not been presented as psychotic but that AH have always been mood congruent. Pt says she's had so many diagnoses over her life time but thinks she really only has depression and PTSD from trauma. specification writer agrees that this is most likely and discussed med changes to focus on treating PtSD/depression rather that bipolar/schizophrenia to which pt fully agrees. However, it's noteworthy that pt does have hx of significant self harm when getting dysregulated; she is coming off mood stabilzer haldol and starting SSRI, and it is thus unsafe to make these medication changes in the community; rather pt needs to remain on psychiatric unit for the time being to which pt agrees to. plan -DC Haldol Dec -LOWER Haldol PO down to 4mg BID down from TID (will further taper and dc; pt said only been on haldol for months and <1yr) -continue thorazine 50mg but keep as PRN for dysregulated feelings which pt says has been helpful -LOWER cogentin to 0.5mg tid down from 1 mg TID (for what she describes as akathesia; should need less with lowered haldo) -START Prozac 10 mg and titrate as tolerated -DC Doxasoin 4mg qhs -RESTART prazosin 2mg qhs which she says worked better (doxazosin:prazosin is roughly 2:1) specification writer will reach out to patients outpt psychiatrist to discuss further. encouraged ongoing coping/checking in with nursing staff Greater than 50% of the session was spent on counseling and/or coordination of care Reason for contiued inpatient stay Substantial Risk for: rapid decompensation
[2021-07-20] MEDS: chlorproMAZINE HCl 25 MG TABLET 50 MG PO ×3 (11:30→17:45)
[2021-07-20] MEDS: FLUoxetine HCl 10 MG CAPSULE PO (12:17)
[2021-07-20 14:17] VITALS: BP 113/67; PULSE 96
[2021-07-20] MEDS: Benztropine Mesylate 0.5 MG TABLET PO ×2 (14:17→21:40)
[2021-07-20] MEDS: hydrOXYzine HCL 50 MG TABLET PO (16:47)
[2021-07-20 18:00] VITALS: BP 116/63; PULSE 83
[2021-07-20 21:40] VITALS: BP 116/63; PULSE 83
[2021-07-20] MEDS: traZODone HCL 50 MG TABLET 150 MG PO (21:40)
[2021-07-20] MEDS: Prazosin HCL 1 MG CAPSULE 2 MG PO (21:40)
[2021-07-20] MEDS: VerapamiL HCL SR 240 MG TABLET.ER PO (21:40)
[2021-07-20] MEDS: Montelukast Sodium 10 MG TABLET PO (21:41)
[2021-07-21 06:00] VITALS: BP 104/63; PULSE 80; RESP 16; TEMP 36.1; O2SAT 98
[2021-07-21] MEDS: Omeprazole 20 MG CAPSULE.DR PO ×2 (06:26→17:03)
[2021-07-21 07:00] VITALS: BMI 36.3
[2021-07-21] MEDS: Ferrous Sulfate 324 MG TABLET.DR PO (09:20)
[2021-07-21] MEDS: FLUoxetine HCl 10 MG CAPSULE PO (09:20)
[2021-07-21] MEDS: HaloperidoL 1 MG TABLET 4 MG PO (09:20)
[2021-07-21] MEDS: Atorvastatin Calcium 10 MG TABLET PO (09:20)
[2021-07-21] MEDS: Nicotine 21 MG PATCH.TD24 TRANSDERMA (09:20)
[2021-07-21] MEDS: metFORMIN HCl 500 MG TABLET PO ×2 (09:20→20:53)
[2021-07-21] MEDS: Benztropine Mesylate 0.5 MG TABLET PO ×3 (09:20→20:53)
[2021-07-21 09:25] VITALS: BP 102/56; PULSE 105
[2021-07-21] MEDS: Fluticasone Propionate 100 MCG BLST.W.DEV 2 PUFF INHALE ×2 (09:25→21:11)
[2021-07-21] MEDS: polyethylene glycoL 3350 17 GM POWD.PACK PO (09:25)
[2021-07-21 09:26] VITALS: BP 102/56; PULSE 105
[2021-07-21] MEDS: chlorproMAZINE HCl 25 MG TABLET 50 MG PO ×2 (11:30→14:52)
[2021-07-21] MEDS: hydrOXYzine HCL 50 MG TABLET PO (17:03)
--- NOTE | 2021-07-21 17:12 | P.PNPSI_ITS ---
Subjective Subjective Date of Service: 07/21/21 Reason For Visit: SI Interim History: Patient reports no nightmares last night after having started on prazosin. She reports she still has intermittent thoughts of self-harm but has been able to avoid it. Still has auditory hallucinations but they are less intense. Patient agrees to further titrating her Prozac and tapering Haldol. She is working on staying safe and using coping tools. Mental Status Exam Mental Status Exam Narrative: Patient Appearance:?unkempt Patient Orientation:?Person, Place, Time and Situation Level of Consciousness:?Awake Patient Behavior:?cooperative; Mood Description: anxious, depressed but a little less so Affect Description:?calm Patient Cognition Impaired:?No Ability to Follow Directions:?Fair Speech Pattern:?Clear Hallucinations:?Auditory Hallucinations Thought Process:?Goal Oriented Thought Content:?Perseveration; Suicidal Ideation remains; urges to self harm (though less intense); no HI Depressive Symptoms:?Increased Anxiety, Diff. Making Decisions, Hopelessness and Thoughts of /Suicide Abnormal Motor Activity Signs and Symptoms:?Psychomotor Retardation Judgment:?impaired, but improving Diagnostics Vital Signs (24Hr): Vital Signs - 24 hr 07/20/21 18:00 07/20/21 21:40 07/21/21 06:00 Temperature 97.0 F Pulse Rate 83 83 80 Respiratory Rate 16 Blood Pressure 116/63 116/63 104/63 Pulse Oximetry 98 07/21/21 09:25 07/21/21 09:26 Temperature Pulse Rate 105 H 105 H Respiratory Rate Blood Pressure 102/56 L 102/56 L Pulse Oximetry Body Mass Index 36.3 Labs Results: 07/15/21 11:01 07/15/21 11:01 Medications Medications Current Medications Acetaminophen (Acetaminophen 325 Mg Tablet) 650 mg PO Q6H PRN PRN Reason: Headache/Pain Mild Scale (1-3) Last Admin: 07/17/21 13:43 Dose: 650 mg Documented by: Al Hydroxide/Mg Hydroxide (Magnesium Hydrox/Alum Hydrox 30 Ml Oral.Susp) 30 ml PO Q6H PRN PRN Reason: Heartburn/Nausea Albuterol Sulfate (Albuterol Sulfate 90 Mcg 8 Gm Inhaler) 2 puff INHALE Q4H PRN PRN Reason: Shortness Of Breath Atorvastatin Calcium (Atorvastatin Calcium 10 Mg Tablet) 10 mg PO DAILY [facility] Last Admin: 07/21/21 09:20 Dose: 10 mg Documented by: Benztropine Mesylate (Benztropine Mesylate 0.5 Mg Tablet) 0.5 mg PO TID [facility] Last Admin: 07/21/21 17:03 Dose: 0.5 mg Documented by: Chlorpromazine HCl (Chlorpromazine Hcl 25 Mg Tablet) 50 mg PO QID PRN PRN Reason: Psychosis Last Admin: 07/21/21 14:52 Dose: 50 mg Documented by: Clonidine HCl (Clonidine Hcl 0.1 Mg Tablet) 0.05 mg PO BID@0830,1430 [facility]; Protocol Last Admin: 07/21/21 15:33 Dose: Not Given Documented by: Ferrous Sulfate (Ferrous Sulfate 324 Mg Tablet.) 324 mg PO DAILY [facility] Last Admin: 07/21/21 09:20 Dose: 324 mg Documented by: Fluoxetine HCl (Fluoxetine Hcl 20 Mg Capsule) 20 mg PO DAILY [facility] Fluticasone Propionate (Fluticasone Propionate 100 Mcg Blst.W.Dev) 2 puff INHA LE RBID [facility] Last Admin: 07/21/21 09:25 Dose: 2 puff Documented by: Haloperidol (Haloperidol 1 Mg Tablet) 3 mg PO BID [facility] Hydroxyzine HCl (Hydroxyzine Hcl 50 Mg Tablet) 50 mg PO Q6H PRN PRN Reason: Anxiety Last Admin: 07/21/21 17:03 Dose: 50 mg Documented by: Lisinopril (Lisinopril 5 Mg Tablet) 5 mg PO DAILY [facility]; Protocol Last Admin: 07/21/21 09:26 Dose: Not Given Documented by: Magnesium Hydroxide (Milk Of Magnesia 30 Ml Oral.Susp) 30 ml PO DAILY PRN PRN Reason: Constipation Metformin HCl (Metformin Hcl 500 Mg Tablet) 500 mg PO BID [facility] Last Admin: 07/21/21 09:20 Dose: 500 mg Documented by: Montelukast Sodium (Montelukast Sodium 10 Mg Tablet) 10 mg PO BEDTIME [facility] Last Admin: 07/20/21 21:41 Dose: 10 mg Documented by: Nicotine (Nicotine 21 Mg Patch.Td24) 21 mg TRANSDERMA DAILY [facility] Last Admin: 07/21/21 09:20 Dose: 21 mg Documented by: Omeprazole (Omeprazole 20 Mg Capsule.) 20 mg PO BID@0630,1630 [facility] Last Admin: 07/21/21 17:03 Dose: 20 mg Documented by: Polyethylene Glycol (Polyethylene Glycol 3350 17 Gm Powd.Pack) 17 gm PO DAILY [facility] Last Admin: 07/21/21 09:25 Dose: 17 gm Documented by: Prazosin HCl (Prazosin Hcl 1 Mg Capsule) 2 mg PO BEDTIME [facility]; Protocol Last Admin: 07/20/21 21:40 Dose: 2 mg Documented by: Trazodone HCl (Trazodone Hcl 50 Mg Tablet) 150 mg PO BEDTIME [facility] Last Admin: 07/20/21 21:40 Dose: 150 mg Documented by: Trazodone HCl (Trazodone Hcl 50 Mg Tablet) 50 mg PO BEDTIME PRN PRN Reason: Insomnia Verapamil HCl (Verapamil Hcl Sr 240 Mg Tablet.Er) 240 mg PO BEDTIME [facility]; Protocol Last Admin: 07/20/21 21:40 Dose: 240 mg Documented by: Allergies Allergies Allergy/AdvReac Type Severity Reaction Status Date / Time Fish Containing Products Allergy Severe ANAPHYLAXIS Verified 06/15/21 17:06 codeine [Codeine] Allergy Unknown RASH Verified 06/15/21 17:06 Penicillins Allergy Unknown RASH Verified 06/15/21 17:06 prednisone [Prednisone] Allergy Unknown RASH Verified 06/15/21 17:06 Sulfa (Sulfonamide Allergy Unknown RASH Verified 06/15/21 17:06 Antibiotics) [Sulfa (Sulfonamides)] azithromycin [AZITHROMYCIN] AdvReac Severe RASH Verified 06/15/21 17:06 nicotine AdvReac Unknown HEART Verified 06/15/21 17:06 PALPITATION TO NICOTINE GUM Seafood Allergy Severe ANAPHYLAXIS Uncoded 07/01/20 16:44 From Geodon Allergy Unknown DYSURIA, Uncoded 07/01/20 16:44 RASH Assessment & Plan Assessment & Plan (1) PTSD (post-traumatic stress disorder): Status: Chronic Code(s): F43.10 - Post-traumatic stress disorder, unspecified (2) Borderline personality disorder: Status: Chronic Code(s): F60.3 - Borderline personality disorder (3) Bipolar II disorder with melancholic features: Status: Ruled-out Code(s): F31.81 - Bipolar II disorder Assessment and Plan: currently will leave as rule out as other psychiatric illnesses (depression/ptsd/borderline PD) seem fully adequate to explain symptoms (4) MDD (major depressive disorder), recurrent episode, severe: Status: Acute Code(s): F33.2 - Major depressive disorder, recurrent severe without psychotic features Assessment and Plan: Impression: Severe PTSD, depression history, borderline personality disorder, mood congruent auditory hallucinations; chronic intermittent SI presents for ongoing si/ah HOSPITAL COURSE/REASONING: Patient is starting to wonder if coming to the hospital is causing regression and that it might be to her advantage to work on coping with painful emotions at her [facility], rather than coming to the hospital. Patient's only auditory hallucination is of her father's voice and and how it relates to her past trauma; no other psychotic symptoms at all. Patient is diagnosed with PTSD, depression and borderline personality disorder all of which could be etiology of such AH; to writers knowledge, no dx of a psychotic disorder. Pt reports Haldol started a few months ago (<1 yr) and been increased however it has not removed AH (save minimally after DEC, however patient is ambivalent if this is true). Bipolar is listed as diagnosis however hx does not seem to support it. Conversely, patient is not on an SSRI or SNRI which are typically used as first-line treatments for PTSD. Food And Drug Research Scientist reviewed pt history again with patient and she denies any hx of manic type symptoms or behaviors. Food And Drug Research Scientist also discussed case with staff on the unit who know her well and for over 7+ years, including nurse corporate legal manager and SW, who agree that patient has never presented with manic behaviors or had manic episodes; they also agree that patient has not been presented as psychotic but that AH have always been mood congruent. Pt says she's had so many diagnoses over her life time but thinks she really only has depression and PTSD from trauma. fiction and nonfiction writer prose agrees that this is most likely and discussed med changes to focus on treating PtSD/depression rather that bipolar/schizophrenia to which pt fully agrees. However, it's noteworthy that pt does have hx of significant self harm when getting dysregulated; she is coming off mood stabilzer haldol and starting SSRI, and it is thus unsafe to make these medication changes in the community; rather pt needs to remain on psychiatric unit for the time being to which pt agrees to. plan -DC Haldol Dec -LOWERed Haldol PO down to 3mg BID (down from 4mg TID; will further taper and dc; pt said only been on haldol for months and <1yr) -continue thorazine 50mg but keep as PRN for dysregulated feelings which pt says has been helpful -LOWER cogentin to 0.5mg tid down from 1 mg TID (for what she describes as akathesia; should need less with lowered haldo) -STARTed/titrated to Prozac 20 mg daily -DC Doxasoin 4mg qhs -RESTARTed/continue prazosin 2mg qhs which she says worked better (doxazosin:prazosin is roughly 2:1) fiction and nonfiction writer prose will reach out to patients outpt psychiatrist to discuss further. encouraged ongoing coping/checking in with nursing staff Greater than 50% of the session was spent on counseling and/or coordination of care Reason for contiued inpatient stay Substantial Risk for: rapid decompensation and med/psych decompensation
[2021-07-21 20:50] VITALS: BP 121/77; PULSE 79; RESP 17; TEMP 36.4; O2SAT 99
[2021-07-21] MEDS: VerapamiL HCL SR 240 MG TABLET.ER PO (20:50)
[2021-07-21] MEDS: Montelukast Sodium 10 MG TABLET PO (20:51)
[2021-07-21] MEDS: HaloperidoL 1 MG TABLET 3 MG PO (20:51)
[2021-07-21 20:52] VITALS: BP 121/77; PULSE 79
[2021-07-21] MEDS: Prazosin HCL 1 MG CAPSULE 2 MG PO (20:52)
[2021-07-21] MEDS: traZODone HCL 50 MG TABLET 150 MG PO (20:54)
[2021-07-22] VITALS (7 sets, daily range): BP systolic 100–115; BP diastolic 55–79; PULSE 73–101; RESP 18; TEMP 36.6; O2SAT 96
[2021-07-22] MEDS: traZODone HCL 50 MG TABLET PO (01:53)
[2021-07-22] MEDS: Omeprazole 20 MG CAPSULE.DR PO ×2 (06:34→17:15)
[2021-07-22] MEDS: metFORMIN HCl 500 MG TABLET PO ×2 (08:10→21:11)
[2021-07-22] MEDS: HaloperidoL 1 MG TABLET 3 MG PO ×2 (08:10→21:10)
[2021-07-22] MEDS: Nicotine 21 MG PATCH.TD24 TRANSDERMA (08:10)
[2021-07-22] MEDS: Ferrous Sulfate 324 MG TABLET.DR PO (08:10)
[2021-07-22] MEDS: Benztropine Mesylate 0.5 MG TABLET PO ×3 (08:10→21:11)
[2021-07-22] MEDS: polyethylene glycoL 3350 17 GM POWD.PACK PO (08:10)
[2021-07-22] MEDS: Atorvastatin Calcium 10 MG TABLET PO (08:11)
[2021-07-22] MEDS: Fluticasone Propionate 100 MCG BLST.W.DEV 2 PUFF INHALE ×2 (08:45→21:12)
[2021-07-22] MEDS: FLUoxetine HCl 20 MG CAPSULE PO (08:50)
[2021-07-22] MEDS: chlorproMAZINE HCl 25 MG TABLET 50 MG PO (10:15)
[2021-07-22] MEDS: cloNIDine HCL 0.1 MG TABLET 0.05 MG PO (13:56)
--- NOTE | 2021-07-22 15:20 | HO.PSYCHPN ---
Subjective Subjective Date of Service: 07/22/21 Reason For Visit: SI Interim History: Patient reports that she is so tired of hearing her father's voice. She says she tells it to shut up all the time but it keeps common. She says that afterwards her mind starts thinking or hearing that she is worthless, hopeless, no good over and over. She says she knows that it will take awhile for this all to resolve. On the other and patient said she slept well last night and likes the extra trazodone available if needed. Patient reports that she continues to feel depressed and has urges to self-harm but continues to resist. She likes the med changes thus far. Mental Status Exam Mental Status Exam Narrative: Patient Appearance:?unkempt Patient Orientation:?Person, Place, Time and Situation Level of Consciousness:?Awake Patient Behavior:?cooperative; Mood Description: anxious, depressed but a little less so Affect Description:?calm Patient Cognition Impaired:?No Ability to Follow Directions:?Fair Speech Pattern:?Clear Hallucinations:?Auditory Hallucinations Thought Process:?Goal Oriented Thought Content:?Perseveration; Suicidal Ideation remains but less so; urges to self harm (though less intense); no HI Depressive Symptoms:?Increased Anxiety, Diff. Making Decisions, Hopelessness and Thoughts of /Suicide Abnormal Motor Activity Signs and Symptoms:?Psychomotor Retardation Judgment:?impaired, but improving Diagnostics Vital Signs (24Hr): Vital Signs - 24 hr 07/21/21 20:50 07/21/21 20:52 07/22/21 06:00 Temperature 97.6 F 97.9 F Pulse Rate 79 79 73 Respiratory Rate 17 18 Blood Pressure 121/77 121/77 100/55 L Pulse Oximetry 99 96 07/22/21 08:48 07/22/21 08:50 07/22/21 13:56 Temperature Pulse Rate 78 78 101 H Respiratory Rate Blood Pressure 108/57 L 108/57 L 115/72 Pulse Oximetry Body Mass Index 36.3 Labs Results: 07/15/21 11:01 07/15/21 11:01 Medications Medications Current Medications Acetaminophen (Acetaminophen 325 Mg Tablet) 650 mg PO Q6H PRN PRN Reason: Headache/Pain Mild Scale (1-3) Last Admin: 07/17/21 13:43 Dose: 650 mg Documented by: Al Hydroxide/Mg Hydroxide (Magnesium Hydrox/Alum Hydrox 30 Ml Oral.Susp) 30 ml PO Q6H PRN PRN Reason: Heartburn/Nausea Albuterol Sulfate (Albuterol Sulfate 90 Mcg 8 Gm Inhaler) 2 puff INHALE Q4H PRN PRN Reason: Shortness Of Breath Atorvastatin Calcium (Atorvastatin Calcium 10 Mg Tablet) 10 mg PO DAILY [facility] Last Admin: 07/22/21 08:11 Dose: 10 mg Documented by: Benztropine Mesylate (Benztropine Mesylate 0.5 Mg Tablet) 0.5 mg PO TID [facility] Last Admin: 07/22/21 13:56 Dose: 0.5 mg Documented by: Chlorpromazine HCl (Chlorpromazine Hcl 25 Mg Tablet) 50 mg PO QID PRN PRN Reason: Psychosis Last Admin: 07/22/21 10:15 Dose: 50 mg Documented by: Clonidine HCl (Clonidine Hcl 0.1 Mg Tablet) 0.05 mg PO BID@0830,1430 [facility]; Protocol Last Admin: 07/22/21 13:56 Dose: 0.05 mg Documented by: Ferrous Sulfate (Ferrous Sulfate 324 Mg Tablet.Dr) 324 mg PO DAILY [facility] Last Admin: 07/22/21 08:10 Dose: 324 mg Documented by: Fluoxetine HCl (Fluoxetine Hcl 20 Mg Capsule) 20 mg PO DAILY [facility] Last Admin: 07/22/21 08:50 Dose: 20 mg Documented by: Fluticasone Propionate (Fluticasone Propionate 100 Mcg Blst.W.Dev) 2 puff INHALE RBID [facility] Last Admin: 07/22/21 08:45 Dose: 2 puff Documented by: Haloperidol (Haloperidol 1 Mg Tablet) 3 mg PO BID [facility] Last Admin: 07/22/21 08:10 Dose: 3 mg Documented by: Hydroxyzine HCl (Hydroxyzine Hcl 50 Mg Tablet) 50 mg PO Q6H PRN PRN Reason: Anxiety Last Admin: 07/21/21 17:03 Dose: 50 mg Documented by: Lisinopril (Lisinopril 5 Mg Tablet) 5 mg PO DAILY [facility]; Protocol Last Admin: 07/22/21 08:50 Dose: Not Given Documented by: Magnesium Hydroxide (Milk Of Magnesia 30 Ml Oral.Susp) 30 ml PO DAILY PRN PRN Reason: Constipation Metformin HCl (Metformin Hcl 500 Mg Tablet) 500 mg PO BID [facility] Last Admin: 07/22/21 08:10 Dose: 500 mg Documented by: Montelukast Sodium (Montelukast Sodium 10 Mg Tablet) 10 mg PO BEDTIME [facility] Last Admin: 07/21/21 20:51 Dose: 10 mg Documented by: Nicotine (Nicotine 21 Mg Patch.Td24) 21 mg TRANSDERMA DAILY [facility] Last Admin: 07/22/21 08:10 Dose: 21 mg Documented by: Omeprazole (Omeprazole 20 Mg Capsule.Dr) 20 mg PO BID@0630,1630 [facility] Last Admin: 07/22/21 06:34 Dose: 20 mg Documented by: Polyethylene Glycol (Polyethylene Glycol 3350 17 Gm Powd.Pack) 17 gm PO DAILY [facility] Last Admin: 07/22/21 08:10 Dose: 17 gm Documented by: Prazosin HCl (Prazosin Hcl 1 Mg Capsule) 2 mg PO BEDTIME [facility]; Protocol Last Admin: 07/21/21 20:52 Dose: 2 mg Documented by: Trazodone HCl (Trazodone Hcl 50 Mg Tablet) 150 mg PO BEDTIME [facility] Last Admin: 07/21/21 20:54 Dose: 150 mg Documented by: Trazodone HCl (Trazodone Hcl 50 Mg Tablet) 50 mg PO BEDTIME PRN PRN Reason: Insomnia Last Admin: 07/22/21 01:53 Dose: 50 mg Documented by: Verapamil HCl (Verapamil Hcl Sr 240 Mg Tablet.Er) 240 mg PO BEDTIME [facility]; Protocol Last Admin: 07/21/21 20:50 Dose: 240 mg Documented by: Allergies Allergies Allergy/AdvReac Type Severity Reaction Status Date / Time Fish Containing Products Allergy Severe ANAPHYLAXIS Verified 06/15/21 17:06 codeine [Codeine] Allergy Unknown RASH Verified 06/15/21 17:06 Penicillins Allergy Unknown RASH Verified 06/15/21 17:06 prednisone [Prednisone] Allergy Unknown RASH Verified 06/15/21 17:06 Sulfa (Sulfonamide Allergy Unknown RASH Verified 06/15/21 17:06 Antibiotics) [Sulfa (Sulfonamides)] azithromycin [AZITHROMYCIN] AdvReac Severe RASH Verified 06/15/21 17:06 nicotine AdvReac Unknown HEART Verified 06/15/21 17:06 PALPITATION TO NICOTINE GUM Seafood Allergy Severe ANAPHYLAXIS Uncoded 07/01/20 16:44 From Geodon Allergy Unknown DYSURIA, Uncoded 07/01/20 16:44 RASH Assessment & Plan Assessment & Plan (1) PTSD (post-traumatic stress disorder): Status: Chronic Code(s): F43.10 - Post-traumatic stress disorder, unspecified (2) Borderline personality disorder: Status: Chronic Code(s): F60.3 - Borderline personality disorder (3) Bipolar II disorder with melancholic features: Status: Ruled-out Code(s): F31.81 - Bipolar II disorder Assessment and Plan: currently will leave as rule out as other psychiatric illnesses (depression/ptsd/borderline PD) seem fully adequate to explain symptoms (4) MDD (major depressive disorder), recurrent episode, severe: Status: Acute Code(s): F33.2 - Major depressive disorder, recurrent severe without psychotic features Assessment and Plan: Impression: Severe PTSD, depression history, borderline personality disorder, mood congruent auditory hallucinations; chronic intermittent SI presents for ongoing si/ah HOSPITAL COURSE/REASONING: Patient is starting to wonder if coming to the hospital is causing regression and that it might be to her advantage to work on coping with painful emotions at her [facility], rather than coming to the hospital. Patient's only auditory hallucination is of her father's voice and and how it relates to her past trauma; no other psychotic symptoms at all. Patient is diagnosed with PTSD, depression and borderline personality disorder all of which could be etiology of such AH; to writers knowledge, no dx of a psychotic disorder. Pt reports Haldol started a few months ago (<1 yr) and been increased however it has not removed AH (save minimally after DEC, however patient is ambivalent if this is true). Bipolar is listed as diagnosis however hx does not seem to support it. Conversely, patient is not on an SSRI or SNRI which are typically used as first-line treatments for PTSD. Merchandise Presentation Associate reviewed pt history again with patient and she denies any hx of manic type symptoms or behaviors. Merchandise Presentation Associate also discussed case with staff on the unit who know her well and for over 7+ years, including nurse manager editorial and SW, who agree that patient has never presented with manic behaviors or had manic episodes; they also agree that patient has not been presented as psychotic but that AH have always been mood congruent. Pt says she's had so many diagnoses over her life time but thinks she really only has depression and PTSD from trauma. aligner typewriter agrees that this is most likely and discussed med changes to focus on treating PtSD/depression rather that bipolar/schizophrenia to which pt fully agrees. However, it's noteworthy that pt does have hx of significant self harm when getting dysregulated; she is coming off mood stabilzer haldol and starting SSRI, and it is thus unsafe to make these medication changes in the community; rather pt needs to remain on psychiatric unit for the time being to which pt agrees to. plan -DC Haldol Dec -LOWERed Haldol PO down to 3mg BID (down from 4mg TID; will further taper and dc; pt said only been on haldol for months and <1yr) -continue thorazine 50mg but keep as PRN for dysregulated feelings which pt says has been helpful -LOWER cogentin to 0.5mg tid down from 1 mg TID (for what she describes as akathesia; should need less with lowered haldo) -STARTed/titrated to Prozac 20 mg daily -DC Doxasoin 4mg qhs -RESTARTed/continue prazosin 2mg qhs which she says worked better (doxazosin:prazosin is roughly 2:1) aligner typewriter will reach out to patients outpt psychiatrist to discuss further. encouraged ongoing coping/checking in with nursing staff Greater than 50% of the session was spent on counseling and/or coordination of care Reason for contiued inpatient stay Substantial Risk for: med/psych decompensation
[2021-07-22] MEDS: hydrOXYzine HCL 50 MG TABLET PO (17:15)
[2021-07-22] MEDS: Magnesium Citrate 300 ML SOLUTION PO (17:15)
[2021-07-22] MEDS: Prazosin HCL 1 MG CAPSULE 2 MG PO (21:10)
[2021-07-22] MEDS: Montelukast Sodium 10 MG TABLET PO (21:10)
[2021-07-22] MEDS: traZODone HCL 50 MG TABLET 150 MG PO (21:11)
[2021-07-22] MEDS: VerapamiL HCL SR 240 MG TABLET.ER PO (21:12)
[2021-07-23 05:50] VITALS: BP 83/53; PULSE 75; RESP 18; TEMP 36.5; O2SAT 95
[2021-07-23] MEDS: Omeprazole 20 MG CAPSULE.DR PO ×2 (06:30→16:25)
[2021-07-23] MEDS: HaloperidoL 1 MG TABLET 3 MG PO (09:10)
[2021-07-23] MEDS: Nicotine 21 MG PATCH.TD24 TRANSDERMA (09:11)
[2021-07-23 09:12] VITALS: BP 109/63; PULSE 84
[2021-07-23] MEDS: metFORMIN HCl 500 MG TABLET PO ×2 (09:12→21:50)
[2021-07-23] MEDS: cloNIDine HCL 0.1 MG TABLET 0.05 MG PO ×2 (09:12→16:10)
[2021-07-23] MEDS: Benztropine Mesylate 0.5 MG TABLET PO ×2 (09:12→21:58)
[2021-07-23] MEDS: lisinopriL 5 MG TABLET PO (09:12)
[2021-07-23] MEDS: Atorvastatin Calcium 10 MG TABLET PO (09:14)
[2021-07-23] MEDS: Ferrous Sulfate 324 MG TABLET.DR PO (09:14)
[2021-07-23] MEDS: FLUoxetine HCl 20 MG CAPSULE PO (09:14)
[2021-07-23] MEDS: polyethylene glycoL 3350 17 GM POWD.PACK PO (09:15)
[2021-07-23] MEDS: Fluticasone Propionate 100 MCG BLST.W.DEV 2 PUFF INHALE ×2 (09:19→21:41)
[2021-07-23] MEDS: chlorproMAZINE HCl 25 MG TABLET 50 MG PO (11:13)
--- NOTE | 2021-07-23 11:38 | HO.PSYCHPN ---
Subjective Subjective Date of Service: 07/23/21 Reason For Visit: SI Interim History: Patient says she is doing ?so-so.? She says auditory hallucinations of her father saying mean things and to hurt herself continue. She said that she is coping with it at the moment and doing okay however says that such voices get worse in the evening time. She reiterates that the evening is when trauma frequently happen. Stonecutter and patient discuss what from she can do to help her cope through the evening time which begins around 15:00 at change of shift. Stonecutter offered some examples which patient said she would consider but also was going to come up with her own ideas on what she can do. She said she slept well last night and again reports no nightmares. She likes the change in medications and says she does not miss having the Haldol and agrees to further taper it down and discontinuing. She continues to find Thorazine p.r.n. helpful She asked about discharge possibly later next week to which automobile and property underwriter agreed is possible and will discuss with team upon their return Mental Status Exam Mental Status Exam Narrative: Patient Appearance:?unkempt Patient Orientation:?Person, Place, Time and Situation Level of Consciousness:?Awake Patient Behavior:?cooperative; Mood Description: anxious, depressed but a little less so Affect Description:?calm Patient Cognition Impaired:?No Ability to Follow Directions:?Fair Speech Pattern:?Clear Hallucinations:?Auditory Hallucinations Thought Process:?Goal Oriented Thought Content:?Perseveration; Suicidal Ideation but passive; urges to self harm (though less intense); no HI Abnormal Motor Activity Signs and Symptoms:?some Psychomotor Retardation Judgment:?impaired, but improving Diagnostics Vital Signs (24Hr): Vital Signs - 24 hr 07/22/21 13:56 07/22/21 18:00 07/22/21 21:10 Temperature Pulse Rate 101 H 73 73 Respiratory Rate Blood Pressure 115/72 115/79 115/79 Pulse Oximetry 07/22/21 21:12 07/23/21 05:50 07/23/21 09:12 Temperature 97.7 F Pulse Rate 73 75 84 Respiratory Rate 18 Blood Pressure 115/79 83/53 L 109/63 Pulse Oximetry 95 Body Mass Index 36.3 Labs Results: 07/15/21 11:01 07/15/21 11:01 Medications Medications Current Medications Acetaminophen (Acetaminophen 325 Mg Tablet) 650 mg PO Q6H PRN PRN Reason: Headache/Pain Mild Scale (1-3) Last Admin: 07/17/21 13:43 Dose: 650 mg Documented by: Al Hydroxide/Mg Hydroxide (Magnesium Hydrox/Alum Hydrox 30 Ml Oral.Susp) 30 ml PO Q6H PRN PRN Reason: Heartburn/Nausea Albuterol Sulfate (Albuterol Sulfate 90 Mcg 8 Gm Inhaler) 2 puff INHALE Q4H PRN PRN Reason: Shortness Of Breath Atorvastatin Calcium (Atorvastatin Calcium 10 Mg Tablet) 10 mg PO DAILY [facility] Last Admin: 07/23/21 09:14 Dose: 10 mg Documented by: Benztropine Mesylate (Benztropine Mesylate 0.5 Mg Tablet) 0.5 mg PO TID [facility] Last Admin: 07/23/21 09:12 Dose: 0.5 mg Documented by: Chlorpromazine HCl (Chlorpromazine Hcl 25 Mg Tablet) 50 mg PO QID PRN PRN Reason: Psychosis Last Admin: 07/23/21 11:13 Dose: 50 mg Documented by: Clonidine HCl (Clonidine Hcl 0.1 Mg Tablet) 0.05 mg PO BID@0830,1430 [facility]; Protocol Last Admin: 07/23/21 09:12 Dose: 0.05 mg Documented by: Ferrous Sulfate (Ferrous Sulfate 324 Mg Tablet.) 324 mg PO DAILY [facility] Last Admin: 07/23/21 09:14 Dose: 324 mg Documented by: Fluoxetine HCl (Fluoxetine Hcl 20 Mg Capsule) 20 mg PO DAILY [facility] Last Admin: 07/23/21 09:14 Dose: 20 mg Documented by: Fluticasone Propionate (Fluticasone Propionate 100 Mcg Blst.W.Dev) 2 puff INHALE RBID [facility] Last Admin: 07/23/21 09:19 Dose: 2 puff Documented by: Haloperidol (Haloperidol 1 Mg Tablet) 3 mg PO BID [facility] Last Admin: 07/23/21 09:10 Dose: 3 mg Documented by: Hydroxyzine HCl (Hydroxyzine Hcl 50 Mg Tablet) 50 mg PO Q6H PRN PRN Reason: Anxiety Last Admin: 07/22/21 17:15 Dose: 50 mg Documented by: Lisinopril (Lisinopril 5 Mg Tablet) 5 mg PO DAILY [facility]; Protocol Last Admin: 07/23/21 09:12 Dose: 5 mg Documented by: Magnesium Hydroxide (Milk Of Magnesia 30 Ml Oral.Susp) 30 ml PO DAILY PRN PRN Reason: Constipation Metformin HCl (Metformin Hcl 500 Mg Tablet) 500 mg PO BID [facility] Last Admin: 07/23/21 09:12 Dose: 500 mg Documented by: Montelukast Sodium (Montelukast Sodium 10 Mg Tablet) 10 mg PO BEDTIME [facility] Last Admin: 07/22/21 21:10 Dose: 10 mg Documented by: Nicotine (Nicotine 21 Mg Patch.Td24) 21 mg TRANSDERMA DAILY [facility] Last Admin: 07/23/21 09:11 Dose: 21 mg Documented by: Omeprazole (Omeprazole 20 Mg Capsule.Dr) 20 mg PO BID@0630,1630 [facility] Last Admin: 07/23/21 06:30 Dose: 20 mg Documented by: Polyethylene Glycol (Polyethylene Glycol 3350 17 Gm Powd.Pack) 17 gm PO DAILY [facility] Last Admin: 07/23/21 09:15 Dose: 17 gm Documented by: Prazosin HCl (Prazosin Hcl 1 Mg Capsule) 2 mg PO BEDTIME [facility]; Protocol Last Admin: 07/22/21 21:10 Dose: 2 mg Documented by: Trazodone HCl (Trazodone Hcl 50 Mg Tablet) 150 mg PO BEDTIME [facility] Last Admin: 07/22/21 21:11 Dose: 150 mg Documented by: Trazodone HCl (Trazodone Hcl 50 Mg Tablet) 50 mg PO BEDTIME PRN PRN Reason: Insomnia Last Admin: 07/22/21 01:53 Dose: 50 mg Documented by: Verapamil HCl (Verapamil Hcl Sr 240 Mg Tablet.Er) 240 mg PO BEDTIME [facility]; Protocol Last Admin: 07/22/21 21:12 Dose: 240 mg Documented by: Allergies Allergies Allergy/AdvReac Type Severity Reaction Status Date / Time Fish Containing Products Allergy Severe ANAPHYLAXIS Verified 06/15/21 17:06 codeine [Codeine] Allergy Unknown RASH Verified 06/15/21 17:06 Penicillins Allergy Unknown RASH Verified 06/15/21 17:06 prednisone [Prednisone] Allergy Unknown RASH Verified 06/15/21 17:06 Sulfa (Sulfonamide Allergy Unknown RASH Verified 06/15/21 17:06 Antibiotics) [Sulfa (Sulfonamides)] azithromycin [AZITHROMYCIN] AdvReac Severe RASH Verified 06/15/21 17:06 nicotine AdvReac Unknown HEART Verified 06/15/21 17:06 PALPITATION TO NICOTINE GUM Seafood Allergy Severe ANAPHYLAXIS Uncoded 07/01/20 16:44 From Geodon Allergy Unknown DYSURIA, Uncoded 07/01/20 16:44 RASH Assessment & Plan Assessment & Plan (1) PTSD (post-traumatic stress disorder): Status: Chronic Code(s): F43.10 - Post-traumatic stress disorder, unspecified (2) Borderline personality disorder: Status: Chronic Code(s): F60.3 - Borderline personality disorder (3) Bipolar II disorder with melancholic features: Status: Ruled-out Code(s): F31.81 - Bipolar II disorder Assessment and Plan: currently will leave as rule out as other psychiatric illnesses (depression/ptsd/borderline PD) seem fully adequate to explain symptoms (4) MDD (major depressive disorder), recurrent episode, severe: Status: Acute Code(s): F33.2 - Major depressive disorder, recurrent severe without psychotic features Assessment and Plan: Impression: Severe PTSD, depression history, borderline personality disorder, mood congruent auditory hallucinations; chronic intermittent SI presents for ongoing si/ah HOSPITAL COURSE/REASONING: Patient is starting to wonder if coming to the hospital is causing regression and that it might be to her advantage to work on coping with painful emotions at her detention, rather than coming to the hospital. Patient's only auditory hallucination is of her father's voice and and how it relates to her past trauma; no other psychotic symptoms at all. Patient is diagnosed with PTSD, depression and borderline personality disorder all of which could be etiology of such AH; to writers knowledge, no dx of a psychotic disorder. Pt reports Haldol started a few months ago (<1 yr) and been increased however it has not removed AH (save minimally after DEC, however patient is ambivalent if this is true). Bipolar is listed as diagnosis however hx does not seem to support it. Conversely, patient is not on an SSRI or SNRI which are typically used as first-line treatments for PTSD. Stonecutter reviewed pt history again with patient and she denies any hx of manic type symptoms or behaviors. Stonecutter also discussed case with staff on the unit who know her well and for over 7+ years, including nurse hair or beauty salon manager and SW, who agree that patient has never presented with manic behaviors or had manic episodes; they also agree that patient has not been presented as psychotic but that AH have always been mood congruent. Pt says she's had so many diagnoses over her life time but thinks she really only has depression and PTSD from trauma. automobile and property underwriter agrees that this is most likely and discussed med changes to focus on treating PtSD/depression rather that bipolar/schizophrenia to which pt fully agrees. However, it's noteworthy that pt does have hx of significant self harm when getting dysregulated; she is coming off mood stabilzer haldol and starting SSRI, and it is thus unsafe to make these medication changes in the community; rather pt needs to remain on psychiatric unit for the time being to which pt agrees to. -patient continues to work on coping skills; prazosin seems to have helped eliminate nightmares. Patient likes medication regimen change in does not miss Haldol, agreeing to further taper and discontinue. No other medication side effects reported. plan -DC Haldol Dec -LOWERed Haldol PO down to 2mg BID (down from 4mg TID; will further taper and dc; pt said only been on haldol for months and <1yr) -continue thorazine 50mg but keep as PRN for dysregulated feelings which pt says has been helpful -LOWER cogentin to 0.5mg tid down from 1 mg TID (for what she describes as akathesia; should need less with lowered haldo) -STARTed/titrated to Prozac 20 mg daily -DC Doxasoin 4mg qhs -RESTARTed/continue prazosin 2mg qhs which she says worked better (doxazosin:prazosin is roughly 2:1) -automobile and property underwriter called and left message for patient's outpatient psychiatrist Dr. Gaspar encouraged ongoing coping/checking in with nursing staff Greater than 50% of the session was spent on counseling and/or coordination of care Reason for contiued inpatient stay Substantial Risk for: med/psych decompensation
[2021-07-23 16:10] VITALS: BP 122/67; PULSE 104
[2021-07-23 18:00] VITALS: BP 122/67; PULSE 104; RESP 18; TEMP 36.4; O2SAT 97
[2021-07-23] MEDS: traZODone HCL 50 MG TABLET 150 MG PO (21:44)
[2021-07-23] MEDS: HaloperidoL 1 MG TABLET 2 MG PO (21:45)
[2021-07-23 21:49] VITALS: BP 113/58; PULSE 78
[2021-07-23] MEDS: Montelukast Sodium 10 MG TABLET PO (21:49)
[2021-07-23 21:50] VITALS: BP 113/58; PULSE 78
[2021-07-23] MEDS: Prazosin HCL 1 MG CAPSULE 2 MG PO (21:50)
[2021-07-24] MEDS: Nicotine 21 MG PATCH.TD24 TRANSDERMA (08:58)
[2021-07-24] MEDS: polyethylene glycoL 3350 17 GM POWD.PACK PO (08:58)
[2021-07-24] MEDS: Fluticasone Propionate 100 MCG BLST.W.DEV 2 PUFF INHALE ×2 (08:58→21:54)
[2021-07-24] MEDS: metFORMIN HCl 500 MG TABLET PO ×2 (08:58→21:56)
[2021-07-24] MEDS: Ferrous Sulfate 324 MG TABLET.DR PO (08:58)
[2021-07-24 08:59] VITALS: BP 133/89; PULSE 79
[2021-07-24] MEDS: FLUoxetine HCl 20 MG CAPSULE PO (08:59)
[2021-07-24] MEDS: lisinopriL 5 MG TABLET PO (08:59)
[2021-07-24] MEDS: Omeprazole 20 MG CAPSULE.DR PO ×2 (08:59→17:15)
[2021-07-24] MEDS: HaloperidoL 1 MG TABLET 2 MG PO ×2 (08:59→21:56)
[2021-07-24] MEDS: Atorvastatin Calcium 10 MG TABLET PO (08:59)
[2021-07-24] MEDS: Benztropine Mesylate 0.5 MG TABLET PO ×2 (08:59→21:54)
[2021-07-24 09:00] VITALS: BP 133/89; PULSE 79
[2021-07-24] MEDS: cloNIDine HCL 0.1 MG TABLET 0.05 MG PO ×2 (09:00→14:53)
--- NOTE | 2021-07-24 10:44 | P.PNPSI_ITS ---
Subjective Subjective Date of Service: 07/24/21 Reason For Visit: SI Interim History: pt says she had a tough night last night, that the AH of her father were very loud and difficult to ignore, though she used multiple coping tools. Pt said today is also difficult and she has repeated images one of her father and another of her sister committing suicide; pt clarifies these are not visual hallucinations but just mental images. chief writer discussed how her Haldol has been lowered but pt would like to remain off it for now and see how things go. She is able to remain safe and is utilizing PRN Thorazine, though to limited effect. Mental Status Exam Mental Status Exam Narrative: ?Patient Appearance:?unkempt Patient Orientation:?Person, Place, Time and Situation Level of Consciousness:?Awake Patient Behavior:?cooperative; Mood Description: anxious Affect Description:?distressed Patient Cognition Impaired:?No Ability to Follow Directions:?Fair Speech Pattern:?Clear Hallucinations:?Auditory Hallucinations Thought Process:?Goal Oriented Thought Content:?Perseveration; Suicidal Ideation but passive; urges to self harm (though less intense); no HI Abnormal Motor Activity Signs and Symptoms:?some Psychomotor Retardation Judgment:?impaired, but improving Diagnostics Vital Signs (24Hr): Vital Signs - 24 hr 07/23/21 16:10 07/23/21 18:00 07/23/21 21:49 Temperature 97.5 F Pulse Rate 104 H 104 H 78 Respiratory Rate 18 Blood Pressure 122/67 122/67 113/58 L Pulse Oximetry 97 07/23/21 21:50 07/24/21 08:59 07/24/21 09:00 Temperature Pulse Rate 78 79 79 Respiratory Rate Blood Pressure 113/58 L 133/89 133/89 Pulse Oximetry Body Mass Index 36.3 Labs Results: 07/15/21 11:01 07/15/21 11:01 Medications Medications Current Medications Acetaminophen (Acetaminophen 325 Mg Tablet) 650 mg PO Q6H PRN PRN Reason: Headache/Pain Mild Scale (1-3) Last Admin: 07/17/21 13:43 Dose: 650 mg Documented by: Al Hydroxide/Mg Hydroxide (Magnesium Hydrox/Alum Hydrox 30 Ml Oral.Susp) 30 ml PO Q6H PRN PRN Reason: Heartburn/Nausea Albuterol Sulfate (Albuterol Sulfate 90 Mcg 8 Gm Inhaler) 2 puff INHALE Q4H PRN PRN Reason: Shortness Of Breath Atorvastatin Calcium (Atorvastatin Calcium 10 Mg Tablet) 10 mg PO DAILY [facility] Last Admin: 07/24/21 08:59 Dose: 10 mg Documented by: Benztropine Mesylate (Benztropine Mesylate 0.5 Mg Tablet) 0.5 mg PO BID [facility] Last Admin: 07/24/21 08:59 Dose: 0.5 mg Documented by: Chlorpromazine HCl (Chlorpromazine Hcl 25 Mg Tablet) 50 mg PO QID PRN PRN Reason: Psychosis Last Admin: 07/23/21 11:13 Dose: 50 mg Documented by: Clonidine HCl (Clonidine Hcl 0.1 Mg Tablet) 0.05 mg PO BID@0830,1430 [facility]; Protocol Last Admin: 07/24/21 09:00 Dose: 0.05 mg Documented by: Ferrous Sulfate (Ferrous Sulfate 324 Mg Tablet.Dr) 324 mg PO DAILY [facility] Last Admin: 07/24/21 08:58 Dose: 324 mg Documented by: Fluoxetine HCl (Fluoxetine Hcl 20 Mg Capsule) 20 mg PO DAILY [facility] Last Admin: 07/24/21 08:59 Dose: 20 mg Documented by: Fluticasone Propionate (Fluticasone Propionate 100 Mcg Blst.W.Dev) 2 puff INHALE RBID [facility] Last Admin: 07/24/21 08:58 Dose: 2 puff Documented by: Haloperidol (Haloperidol 1 Mg Tablet) 2 mg PO BID [facility] Last Admin: 07/24/21 08:59 Dose: 2 mg Documented by: Hydroxyzine HCl (Hydroxyzine Hcl 50 Mg Tablet) 50 mg PO Q6H PRN PRN Reason: Anxiety Last Admin: 07/22/21 17:15 Dose: 50 mg Documented by: Lisinopril (Lisinopril 5 Mg Tablet) 5 mg PO DAILY [facility]; Protocol Last Admin: 07/24/21 08:59 Dose: 5 mg Documented by: Magnesium Hydroxide (Milk Of Magnesia 30 Ml Oral.Susp) 30 ml PO DAILY PRN PRN Reason: Constipation Metformin HCl (Metformin Hcl 500 Mg Tablet) 500 mg PO BID [facility] Last Admin: 07/24/21 08:58 Dose: 500 mg Documented by: Montelukast Sodium (Montelukast Sodium 10 Mg Tablet) 10 mg PO BEDTIME [facility] Last Admin: 07/23/21 21:49 Dose: 10 mg Documented by: Nicotine (Nicotine 21 Mg Patch.Td24) 21 mg TRANSDERMA DAILY [facility] Last Admin: 07/24/21 08:58 Dose: 21 mg Documented by: Omeprazole (Omeprazole 20 Mg Capsule.) 20 mg PO BID@0630,1630 [facility] Last Admin: 07/24/21 08:59 Dose: 20 mg Documented by: Polyethylene Glycol (Polyethylene Glycol 3350 17 Gm Powd.Pack) 17 gm PO DAILY [facility] Last Admin: 07/24/21 08:58 Dose: 17 gm Documented by: Prazosin HCl (Prazosin Hcl 1 Mg Capsule) 2 mg PO BEDTIME [facility]; Protocol Last Admin: 07/23/21 21:50 Dose: 2 mg Documented by: Trazodone HCl (Trazodone Hcl 50 Mg Tablet) 150 mg PO BEDTIME [facility] Last Admin: 07/23/21 21:44 Dose: 150 mg Documented by: Trazodone HCl (Trazodone Hcl 50 Mg Tablet) 50 mg PO BEDTIME PRN PRN Reason: Insomnia Last Admin: 07/22/21 01:53 Dose: 50 mg Documented by: Verapamil HCl (Verapamil Hcl Sr 240 Mg Tablet.Er) 240 mg PO BEDTIME [facility]; Protocol Last Admin: 07/23/21 21:49 Dose: Not Given Documented by: Allergies Allergies Allergy/AdvReac Type Severity Reaction Status Date / Time Fish Containing Products Allergy Severe ANAPHYLAXIS Verified 06/15/21 17:06 codeine [Codeine] Allergy Unknown RASH Verified 06/15/21 17:06 Penicillins Allergy Unknown RASH Verified 06/15/21 17:06 prednisone [Prednisone] Allergy Unknown RASH Verified 06/15/21 17:06 Sulfa (Sulfonamide Allergy Unknown RASH Verified 06/15/21 17:06 Antibiotics) [Sulfa (Sulfonamides)] azithromycin [AZITHROMYCIN] AdvReac Severe RASH Verified 06/15/21 17:06 nicotine AdvReac Unknown HEART Verified 06/15/21 17:06 PALPITATION TO NICOTINE GUM Seafood Allergy Severe ANAPHYLAXIS Uncoded 07/01/20 16:44 From [facility] Allergy Unknown DYSURIA, Uncoded 07/01/20 16:44 RASH Assessment & Plan Assessment & Plan (1) PTSD (post-traumatic stress disorder): Status: Chronic Code(s): F43.10 - Post-traumatic stress disorder, unspecified (2) Borderline personality disorder: Status: Chronic Code(s): F60.3 - Borderline personality disorder (3) Bipolar II disorder with melancholic features: Status: Ruled-out Code(s): F31.81 - Bipolar II disorder Assessment and Plan: currently will leave as rule out as other psychiatric illnesses (depression/ptsd/borderline PD) seem fully adequate to explain symptoms (4) MDD (major depressive disorder), recurrent episode, severe: Status: Acute Code(s): F33.2 - Major depressive disorder, recurrent severe without psychotic features Assessment and Plan: Impression: Severe PTSD, depression history, borderline personality disorder, mood congruent auditory hallucinations; chronic intermittent SI presents for ongoing si/ah HOSPITAL COURSE/REASONING: Patient is starting to wonder if coming to the hospital is causing regression and that it might be to her advantage to work on coping with painful emotions at her fpc, rather than coming to the hospital. Patient's only auditory hallucination is of her father's voice and and how it relates to her past trauma; no other psychotic symptoms at all. Patient is diagnosed with PTSD, depression and borderline personality disorder all of which could be etiology of such AH; to writers knowledge, no dx of a psychotic disorder. Pt reports Haldol started a few months ago (<1 yr) and been increased however it has not removed AH (save minimally after DEC, however patient is ambivalent if this is true). Bipolar is listed as diagnosis however hx does not seem to support it. Conversely, patient is not on an SSRI or SNRI which are typically used as first-line treatments for PTSD. Burrito Maker reviewed pt history again with patient and she denies any hx of manic type symptoms or behaviors. Burrito Maker also discussed case with staff on the unit who know her well and for over 7+ years, including nurse finance and administration manager and SW, who agree that patient has never presented with manic behaviors or had manic episodes; they also agree that patient has not been presented as psychotic but that AH have always been mood congruent. Pt says she's had so many diagnoses over her life time but thinks she really only has depression and PTSD from trauma. chief writer agrees that this is most likely and discussed med changes to focus on treating PtSD/depression rather that bipolar/schizophrenia to which pt fully agrees. However, it's noteworthy that pt does have hx of significant self harm when getting dysregulated; she is coming off mood stabilzer haldol and starting SSRI, and it is thus unsafe to make these medication changes in the community; rather pt needs to remain on psychiatric unit for the time being to which pt agrees to. -patient continues to work on coping skills; prazosin seems to have helped eliminate nightmares. Patient likes medication regimen change in does not miss Haldol, agreeing to further taper and discontinue. No other medication side effects reported. 07/24 pt continues to struggle with AH of her father and now some upsetting mental images as well; some speculation that lowered Haldol could be to blame, however she's had current presentation even when on full home dose of haldol. pt agrees to keep med regimen as is for now and continue to utilize coping skills; she says that at home, she has more options for distraction than on unit and asks about potential discharge. plan -DC Haldol Dec -LOWERed Haldol PO down to 2mg BID (down from 4mg TID; will further taper and dc; pt said only been on haldol for months and <1yr) -continue thorazine 50mg but keep as PRN for dysregulated feelings which pt says has been helpful -LOWER cogentin to 0.5mg tid down from 1 mg TID (for what she describes as akathesia; should need less with lowered haldo) -STARTed/titrated to Prozac 20 mg daily -DC Doxasoin 4mg qhs -RESTARTed/continue prazosin 2mg qhs which she says worked better (doxazosin:prazosin is roughly 2:1) -chief writer called and left message for patient's outpatient psychiatrist Dr. Gaspar encouraged ongoing coping/checking in with nursing staff Greater than 50% of the session was spent on counseling and/or coordination of care Reason for contiued inpatient stay Substantial Risk for: inability to function
[2021-07-24] MEDS: chlorproMAZINE HCl 25 MG TABLET 50 MG PO ×2 (10:58→14:53)
[2021-07-24] MEDS: hydrOXYzine HCL 50 MG TABLET PO ×2 (10:58→17:15)
[2021-07-24 14:53] VITALS: BP 100/60; PULSE 99
[2021-07-24 17:12] VITALS: BP 123/73; PULSE 88; RESP 18; TEMP 36.4; O2SAT 97
[2021-07-24 21:54] VITALS: BP 110/66; PULSE 80
[2021-07-24] MEDS: Prazosin HCL 1 MG CAPSULE 2 MG PO (21:54)
[2021-07-24 21:55] VITALS: BP 110/66; PULSE 80
[2021-07-24] MEDS: VerapamiL HCL SR 240 MG TABLET.ER PO (21:55)
[2021-07-24] MEDS: Montelukast Sodium 10 MG TABLET PO (21:56)
[2021-07-24] MEDS: traZODone HCL 50 MG TABLET 150 MG PO (21:56)
[2021-07-25] VITALS (7 sets, daily range): BP systolic 107–128; BP diastolic 65–85; PULSE 77–106; RESP 18; TEMP 36.6–36.7; O2SAT 96
[2021-07-25] MEDS: Omeprazole 20 MG CAPSULE.DR PO ×2 (06:17→16:14)
[2021-07-25] MEDS: FLUoxetine HCl 20 MG CAPSULE PO (08:17)
[2021-07-25] MEDS: cloNIDine HCL 0.1 MG TABLET 0.05 MG PO ×2 (08:17→13:28)
[2021-07-25] MEDS: Benztropine Mesylate 0.5 MG TABLET PO ×2 (08:17→19:56)
[2021-07-25] MEDS: lisinopriL 5 MG TABLET PO (08:18)
[2021-07-25] MEDS: HaloperidoL 1 MG TABLET 2 MG PO ×3 (08:18→19:56)
[2021-07-25] MEDS: Ferrous Sulfate 324 MG TABLET.DR PO (08:18)
[2021-07-25] MEDS: Atorvastatin Calcium 10 MG TABLET PO (08:18)
[2021-07-25] MEDS: metFORMIN HCl 500 MG TABLET PO ×2 (08:18→19:56)
[2021-07-25] MEDS: Fluticasone Propionate 100 MCG BLST.W.DEV 2 PUFF INHALE ×2 (08:19→20:01)
[2021-07-25] MEDS: Nicotine 21 MG PATCH.TD24 TRANSDERMA (08:19)
[2021-07-25] MEDS: polyethylene glycoL 3350 17 GM POWD.PACK PO (08:19)
[2021-07-25] MEDS: chlorproMAZINE HCl 25 MG TABLET 50 MG PO ×2 (10:15→18:02)
[2021-07-25] MEDS: hydrOXYzine HCL 50 MG TABLET PO (16:10)
[2021-07-25] MEDS: traZODone HCL 50 MG TABLET 150 MG PO (19:56)
[2021-07-25] MEDS: VerapamiL HCL SR 240 MG TABLET.ER PO (19:57)
[2021-07-25] MEDS: Montelukast Sodium 10 MG TABLET PO (19:57)
[2021-07-25] MEDS: Prazosin HCL 1 MG CAPSULE 2 MG PO (19:59)
--- NOTE | 2021-07-25 20:17 | HO.PSYCHPN ---
Subjective Subjective Date of Service: 07/25/21 Reason For Visit: SI Interim History: pt reports she slept well last night and w/out any nightmares; this morning was good, w/out AH. She reports they started returning this afternoon however so she plans to work on journaling and doing DBT planning worksheet. No SI; no self harm Mental Status Exam Mental Status Exam Narrative: Patient Appearance:?unkempt Patient Orientation:?Person, Place, Time and Situation Level of Consciousness:?Awake Patient Behavior:?cooperative; Mood Description: anxious Affect Description:?anxious Patient Cognition Impaired:?No Ability to Follow Directions:?Fair Speech Pattern:?Clear Hallucinations:?Auditory Hallucinations Thought Process:?Goal Oriented Thought Content:?Perseveration; Suicidal Ideation but passive; urges to self harm (though less intense); no HI Abnormal Motor Activity Signs and Symptoms:?some Psychomotor Retardation Judgment:?impaired, but improving Diagnostics Vital Signs (24Hr): Vital Signs - 24 hr 07/24/21 21:54 07/24/21 21:55 07/25/21 06:00 Temperature 97.8 F Pulse Rate 80 80 77 Respiratory Rate 18 Blood Pressure 110/66 110/66 113/65 Pulse Oximetry 96 07/25/21 08:17 07/25/21 08:18 07/25/21 13:28 Temperature Pulse Rate 77 77 106 H Respiratory Rate Blood Pressure 116/70 116/70 107/68 Pulse Oximetry 07/25/21 18:00 07/25/21 19:57 07/25/21 19:59 Temperature 98.0 F Pulse Rate 77 77 77 Respiratory Rate Blood Pressure 128/85 128/85 128/85 Pulse Oximetry Body Mass Index 36.3 Labs Results: 07/15/21 11:01 07/15/21 11:01 Medications Medications Current Medications Acetaminophen (Acetaminophen 325 Mg Tablet) 650 mg PO Q6H PRN PRN Reason: Headache/Pain Mild Scale (1-3) Last Admin: 07/17/21 13:43 Dose: 650 mg Documented by: Al Hydroxide/Mg Hydroxide (Magnesium Hydrox/Alum Hydrox 30 Ml Oral.Susp) 30 ml PO Q6H PRN PRN Reason: Heartburn/Nausea Albuterol Sulfate (Albuterol Sulfate 90 Mcg 8 Gm Inhaler) 2 puff INHALE Q4H PRN PRN Reason: Shortness Of Breath Atorvastatin Calcium (Atorvastatin Calcium 10 Mg Tablet) 10 mg PO DAILY [facility] Last Admin: 07/25/21 08:18 Dose: 10 mg Documented by: Benztropine Mesylate (Benztropine Mesylate 0.5 Mg Tablet) 0.5 mg PO BID [facility] Last Admin: 07/25/21 19:56 Dose: 0.5 mg Documented by: Chlorpromazine HCl (Chlorpromazine Hcl 25 Mg Tablet) 50 mg PO QID PRN PRN Reason: Psychosis Last Admin: 07/25/21 18:02 Dose: 50 mg Documented by: Clonidine HCl (Clonidine Hcl 0.1 Mg Tablet) 0.05 mg PO BID@0830,1430 [facility]; Protocol Last Admin: 07/25/21 13:28 Dose: 0.05 mg Documented by: Ferrous Sulfate (Ferrous Sulfate 324 Mg Tablet.Dr) 324 mg PO DAILY [facility] Last Admin: 07/25/21 08:18 Dose: 324 mg Documented by: Fluoxetine HCl (Fluoxetine Hcl 10 Mg Capsule) 30 mg PO DAILY [facility] Fluticasone Propionate (Fluticasone Propionate 100 Mcg Blst.W.Dev) 2 puff INHALE RBID [facility] Last Admin: 07/25/21 20:01 Dose: 2 puff Documented by: Haloperidol (Haloperidol 1 Mg Tablet) 2 mg PO BID [facility] Last Admin: 07/25/21 19:56 Dose: 2 mg Documented by: Hydroxyzine HCl (Hydroxyzine Hcl 50 Mg Tablet) 50 mg PO Q6H PRN PRN Reason: Anxiety Last Admin: 07/25/21 16:10 Dose: 50 mg Documented by: Lisinopril (Lisinopril 5 Mg Tablet) 5 mg PO DAILY [facility]; Protocol Last Admin: 07/25/21 08:18 Dose: 5 mg Documented by: Magnesium Hydroxide (Milk Of Magnesia 30 Ml Oral.Susp) 30 ml PO DAILY PRN PRN Reason: Constipation Metformin HCl (Metformin Hcl 500 Mg Tablet) 500 mg PO BID [facility] Last Admin: 07/25/21 19:56 Dose: 500 mg Documented by: Montelukast Sodium (Montelukast Sodium 10 Mg Tablet) 10 mg PO BEDTIME [facility] Last Admin: 07/25/21 19:57 Dose: 10 mg Documented by: Nicotine (Nicotine 21 Mg Patch.Td24) 21 mg TRANSDERMA DAILY [facility] Last Admin: 07/25/21 08:19 Dose: 21 mg Documented by: Omeprazole (Omeprazole 20 Mg Capsule.Dr) 20 mg PO BID@0630,1630 [facility] Last Admin: 07/25/21 16:14 Dose: 20 mg Documented by: Polyethylene Glycol (Polyethylene Glycol 3350 17 Gm Powd.Pack) 17 gm PO DAILY [facility] Last Admin: 07/25/21 08:19 Dose: 17 gm Documented by: Prazosin HCl (Prazosin Hcl 1 Mg Capsule) 2 mg PO BEDTIME [facility]; Protocol Last Admin: 07/25/21 19:59 Dose: 2 mg Documented by: Trazodone HCl (Trazodone Hcl 50 Mg Tablet) 150 mg PO BEDTIME [facility] Last Admin: 07/25/21 19:56 Dose: 150 mg Documented by: Trazodone HCl (Trazodone Hcl 50 Mg Tablet) 50 mg PO BEDTIME PRN PRN Reason: Insomnia Last Admin: 07/22/21 01:53 Dose: 50 mg Documented by: Verapamil HCl (Verapamil Hcl Sr 240 Mg Tablet.Er) 240 mg PO BEDTIME [facility]; Protocol Last Admin: 07/25/21 19:57 Dose: 240 mg Documented by: Allergies Allergies Allergy/AdvReac Type Severity Reaction Status Date / Time Fish Containing Products Allergy Severe ANAPHYLAXIS Verified 06/15/21 17:06 codeine [Codeine] Allergy Unknown RASH Verified 06/15/21 17:06 Penicillins Allergy Unknown RASH Verified 06/15/21 17:06 prednisone [Prednisone] Allergy Unknown RASH Verified 06/15/21 17:06 Sulfa (Sulfonamide Allergy Unknown RASH Verified 06/15/21 17:06 Antibiotics) [Sulfa (Sulfonamides)] azithromycin [AZITHROMYCIN] AdvReac Severe RASH Verified 06/15/21 17:06 nicotine AdvReac Unknown HEART Verified 06/15/21 17:06 PALPITATION TO NICOTINE GUM Seafood Allergy Severe ANAPHYLAXIS Uncoded 07/01/20 16:44 From Geodon Allergy Unknown DYSURIA, Uncoded 07/01/20 16:44 RASH Assessment & Plan Assessment & Plan (1) PTSD (post-traumatic stress disorder): Status: Chronic Code(s): F43.10 - Post-traumatic stress disorder, unspecified (2) Borderline personality disorder: Status: Chronic Code(s): F60.3 - Borderline personality disorder (3) Bipolar II disorder with melancholic features: Status: Ruled-out Code(s): F31.81 - Bipolar II disorder Assessment and Plan: currently will leave as rule out as other psychiatric illnesses (depression/ptsd/borderline PD) seem fully adequate to explain symptoms (4) MDD (major depressive disorder), recurrent episode, severe: Status: Acute Code(s): F33.2 - Major depressive disorder, recurrent severe without psychotic features Assessment and Plan: Impression: Severe PTSD, depression history, borderline personality disorder, mood congruent auditory hallucinations; chronic intermittent SI presents for ongoing si/ah HOSPITAL COURSE/REASONING: Patient is starting to wonder if coming to the hospital is causing regression and that it might be to her advantage to work on coping with painful emotions at her shelter, rather than coming to the hospital. Patient's only auditory hallucination is of her father's voice and and how it relates to her past trauma; no other psychotic symptoms at all. Patient is diagnosed with PTSD, depression and borderline personality disorder all of which could be etiology of such AH; to writers knowledge, no dx of a psychotic disorder. Pt reports Haldol started a few months ago (<1 yr) and been increased however it has not removed AH (save minimally after DEC, however patient is ambivalent if this is true). Bipolar is listed as diagnosis however hx does not seem to support it. Conversely, patient is not on an SSRI or SNRI which are typically used as first-line treatments for PTSD. Paint Roller Assembler reviewed pt history again with patient and she denies any hx of manic type symptoms or behaviors. Paint Roller Assembler also discussed case with staff on the unit who know her well and for over 7+ years, including nurse stage manager and SW, who agree that patient has never presented with manic behaviors or had manic episodes; they also agree that patient has not been presented as psychotic but that AH have always been mood congruent. Pt says she's had so many diagnoses over her life time but thinks she really only has depression and PTSD from trauma. film writer agrees that this is most likely and discussed med changes to focus on treating PtSD/depression rather that bipolar/schizophrenia to which pt fully agrees. However, it's noteworthy that pt does have hx of significant self harm when getting dysregulated; she is coming off mood stabilzer haldol and starting SSRI, and it is thus unsafe to make these medication changes in the community; rather pt needs to remain on psychiatric unit for the time being to which pt agrees to. -patient continues to work on coping skills; prazosin seems to have helped eliminate nightmares. Patient likes medication regimen change in does not miss Haldol, agreeing to further taper and discontinue. No other medication side effects reported. 07/24 pt continues to struggle with AH of her father and now some upsetting mental images as well; some speculation that lowered Haldol could be to blame, however she's had current presentation even when on full home dose of haldol. pt agrees to keep med regimen as is for now and continue to utilize coping skills; she says that at home, she has more options for distraction than on unit and asks about potential discharge. -pt seems to be tolerating continued tapering of Haldol; she denies any worsening symptoms with it's abscence will continue to taper and likely DC while further titrating Prozac as a focus on ptsd/depression, to which pt agrees plan INCREASED Prozac to 40mg daily -DC Haldol Dec -LOWERed Haldol PO down to 1mg in AM and 2mg at bedtime (down from 4mg TID; will further taper and dc; pt said only been on haldol for months and <1yr) -continue thorazine 50mg but keep as PRN for dysregulated feelings which pt says has been helpful -LOWER cogentin to 0.5mg tid down from 1 mg TID (for what she describes as akathesia; should need less with lowered haldo) -DC Doxasoin 4mg qhs -RESTARTed/continue prazosin 2mg qhs which she says worked better (doxazosin:prazosin is roughly 2:1) -film writer called and left message for patient's outpatient psychiatrist Dr. Gaspar; no reply encouraged ongoing coping/checking in with nursing staff Greater than 50% of the session was spent on counseling and/or coordination of care Reason for contiued inpatient stay Substantial Risk for: med/psych decompensation
[2021-07-26] VITALS (8 sets, daily range): BP systolic 97–147; BP diastolic 55–83; PULSE 71–84; RESP 18; TEMP 36.2–36.8; O2SAT 96–97
[2021-07-26] MEDS: Omeprazole 20 MG CAPSULE.DR PO ×2 (06:45→16:18)
[2021-07-26] MEDS: metFORMIN HCl 500 MG TABLET PO ×2 (08:21→21:03)
[2021-07-26] MEDS: HaloperidoL 1 MG TABLET PO ×2 (08:21→21:02)
[2021-07-26] MEDS: lisinopriL 5 MG TABLET PO (08:21)
[2021-07-26] MEDS: Atorvastatin Calcium 10 MG TABLET PO (08:21)
[2021-07-26] MEDS: Ferrous Sulfate 324 MG TABLET.DR PO (08:21)
[2021-07-26] MEDS: FLUoxetine HCl 10 MG CAPSULE 30 MG PO (08:21)
[2021-07-26] MEDS: Benztropine Mesylate 0.5 MG TABLET PO ×2 (08:21→21:00)
[2021-07-26] MEDS: cloNIDine HCL 0.1 MG TABLET 0.05 MG PO ×2 (08:23→16:16)
[2021-07-26] MEDS: polyethylene glycoL 3350 17 GM POWD.PACK PO (08:24)
[2021-07-26] MEDS: Nicotine 21 MG PATCH.TD24 TRANSDERMA (08:24)
[2021-07-26 08:37] LABS: Anion Gap 12 (12-20); Blood Urea Nitrogen 14 mg/dL (9-16); Carbon Dioxide 27 mmol/L (22-29); Chloride 105 mmol/L (96-108); Creatinine Clr Calc Pharmacy 115.8; Estimated Glomerular Filt Rate > 60; Glucose Random 95 mg/dL (60-115); Potassium 4.2 mmol/L (3.3-5.1); Sodium 140 mmol/L (135-145)
--- NOTE | 2021-07-26 10:13 | P.PNPSI_ITS ---
Subjective Subjective Date of Service: 07/26/21 Reason For Visit: SI Interim History: Reports she had a good night last night and slept well, without nightmares. However she woke up with auditory hallucinations today. She says they remain and are telling her to hurt herself and that she will never get better. Patient showed literary writer her journal where she wrote down the thing she was struggling with. Patient is tearful but says that some days she just has bad days and this is 1 of whom. She does not think it is related to being off Haldol and wants to continue tapering to discontinuing it. Patient reports she feels ready to return home, where she will have more ways to cope available to her, including her friends and working at her job which she really enjoys. she asks about T MS which consult is still pending. Outgoing Inspector also discussed EMDR which patient says she has considered but in the past has worried it might trigger her into disassociating. Mental Status Exam Mental Status Exam Narrative: ?Patient Appearance:?unkempt Patient Orientation:?Person, Place, Time and Situation Level of Consciousness:?Awake Patient Behavior:?cooperative; Mood Description: anxious Affect Description:?anxious, some tearfulness Patient Cognition Impaired:?No Ability to Follow Directions:?Fair Speech Pattern:?Clear Hallucinations:?Auditory Hallucinations Thought Process:?Goal Oriented Thought Content:?Perseveration; denies SI/HI; urges to self harm (though less intense) Abnormal Motor Activity Signs and Symptoms:?no Psychomotor Retardation Judgment:?good; working hard to use coping skills Diagnostics Vital Signs (24Hr): Vital Signs - 24 hr 07/25/21 13:28 07/25/21 18:00 07/25/21 19:57 Temperature 98.0 F Pulse Rate 106 H 77 77 Respiratory Rate Blood Pressure 107/68 128/85 128/85 Pulse Oximetry 07/25/21 19:59 07/26/21 06:00 07/26/21 08:20 Temperature 97.1 F 97.3 F Pulse Rate 77 84 79 Respiratory Rate 18 18 Blood Pressure 128/85 97/55 L 117/60 Pulse Oximetry 96 97 07/26/21 08:21 07/26/21 08:23 Temperature Pulse Rate 79 79 Respiratory Rate Blood Pressure 117/60 117/60 Pulse Oximetry Body Mass Index 36.3 Labs Results: 07/15/21 11:01 07/26/21 07:56 Labs: Laboratory Results - last 48 hr 07/26/21 07:56 Sodium 140 Potassium 4.2 Chloride 105 Carbon Dioxide 27 Anion Gap 12 BUN 14 Creatinine 0.73 Estim Creat Clear Calc 115.8 Estimated GFR > 60 Random Glucose 95 Calcium 9.0 Medications Medications Current Medications Acetaminophen (Acetaminophen 325 Mg Tablet) 650 mg PO Q6H PRN PRN Reason: Headache/Pain Mild Scale (1-3) Last Admin: 07/17/21 13:43 Dose: 650 mg Documented by: Al Hydroxide/Mg Hydroxide (Magnesium Hydrox/Alum Hydrox 30 Ml Oral.Susp) 30 ml PO Q6H PRN PRN Reason: Heartburn/Nausea Albuterol Sulfate (Albuterol Sulfate 90 Mcg 8 Gm Inhaler) 2 puff INHALE Q4H PRN PRN Reason: Shortness Of Breath Atorvastatin Calcium (Atorvastatin Calcium 10 Mg Tablet) 10 mg PO DAILY [facility] Last Admin: 07/26/21 08:21 Dose: 10 mg Documented by: Benztropine Mesylate (Benztropine Mesylate 0.5 Mg Tablet) 0.5 mg PO BID [facility] Last Admin: 07/26/21 08:21 Dose: 0.5 mg Documented by: Chlorpromazine HCl (Chlorpromazine Hcl 25 Mg Tablet) 50 mg PO QID PRN PRN Reason: Psychosis Last Admin: 07/25/21 18:02 Dose: 50 mg Documented by: Clonidine HCl (Clonidine Hcl 0.1 Mg Tablet) 0.05 mg PO BID@0830,1430 [facility]; Protocol Last Admin: 07/26/21 08:23 Dose: 0.05 mg Documented by: Ferrous Sulfate (Ferrous Sulfate 324 Mg Tablet.Dr) 324 mg PO DAILY [facility] Last Admin: 07/26/21 08:21 Dose: 324 mg Documented by: Fluoxetine HCl (Fluoxetine Hcl 10 Mg Capsule) 30 mg PO DAILY [facility] Last Admin: 07/26/21 08:21 Dose: 30 mg Documented by: Fluticasone Propionate (Fluticasone Propionate 100 Mcg Blst.W.Dev) 2 puff INHALE RBID [facility] Last Admin: 07/25/21 20:01 Dose: 2 puff Documented by: Haloperidol (Haloperidol 1 Mg Tablet) 1 mg PO DAILY [facility] Last Admin: 07/26/21 08:21 Dose: 1 mg Documented by: Haloperidol (Haloperidol 1 Mg Tablet) 2 mg PO BEDTIME [facility] Last Admin: 07/25/21 19:56 Dose: 2 mg Documented by: Hydroxyzine HCl (Hydroxyzine Hcl 50 Mg Tablet) 50 mg PO Q6H PRN PRN Reason: Anxiety Last Admin: 07/25/21 16:10 Dose: 50 mg Documented by: Lisinopril (Lisinopril 5 Mg Tablet) 5 mg PO DAILY [facility]; Protocol Last Admin: 07/26/21 08:21 Dose: 5 mg Documented by: Magnesium Hydroxide (Milk Of Magnesia 30 Ml Oral.Susp) 30 ml PO DAILY PRN PRN Reason: Constipation Metformin HCl (Metformin Hcl 500 Mg Tablet) 500 mg PO BID [facility] Last Admin: 07/26/21 08:21 Dose: 500 mg Documented by: Montelukast Sodium (Montelukast Sodium 10 Mg Tablet) 10 mg PO BEDTIME [facility] Last Admin: 07/25/21 19:57 Dose: 10 mg Documented by: Nicotine (Nicotine 21 Mg Patch.Td24) 21 mg TRANSDERMA DAILY [facility] Last Admin: 07/26/21 08:24 Dose: 21 mg Documented by: Omeprazole (Omeprazole 20 Mg Capsule.Dr) 20 mg PO BID@0630,1630 [facility] Last Admin: 07/26/21 06:45 Dose: 20 mg Documented by: Polyethylene Glycol (Polyethylene Glycol 3350 17 Gm Powd.Pack) 17 gm PO DAILY [facility] Last Admin: 07/26/21 08:24 Dose: 17 gm Documented by: Prazosin HCl (Prazosin Hcl 1 Mg Capsule) 2 mg PO BEDTIME [facility]; Protocol Last Admin: 07/25/21 19:59 Dose: 2 mg Documented by: Trazodone HCl (Trazodone Hcl 50 Mg Tablet) 150 mg PO BEDTIME [facility] Last Admin: 07/25/21 19:56 Dose: 150 mg Documented by: Trazodone HCl (Trazodone Hcl 50 Mg Tablet) 50 mg PO BEDTIME PRN PRN Reason: Insomnia Last Admin: 07/22/21 01:53 Dose: 50 mg Documented by: Verapamil HCl (Verapamil Hcl Sr 240 Mg Tablet.Er) 240 mg PO BEDTIME [facility]; Protocol Last Admin: 07/25/21 19:57 Dose: 240 mg Documented by: Allergies Allergies Allergy/AdvReac Type Severity Reaction Status Date / Time Fish Containing Products Allergy Severe ANAPHYLAXIS Verified 06/15/21 17:06 codeine [Codeine] Allergy Unknown RASH Verified 06/15/21 17:06 Penicillins Allergy Unknown RASH Verified 06/15/21 17:06 prednisone [Prednisone] Allergy Unknown RASH Verified 06/15/21 17:06 Sulfa (Sulfonamide Allergy Unknown RASH Verified 06/15/21 17:06 Antibiotics) [Sulfa (Sulfonamides)] azithromycin [AZITHROMYCIN] AdvReac Severe RASH Verified 06/15/21 17:06 nicotine AdvReac Unknown HEART Verified 06/15/21 17:06 PALPITATION TO NICOTINE GUM Seafood Allergy Severe ANAPHYLAXIS Uncoded 07/01/20 16:44 From Geodon Allergy Unknown DYSURIA, Uncoded 07/01/20 16:44 RASH Assessment & Plan Assessment & Plan (1) PTSD (post-traumatic stress disorder): Status: Chronic Code(s): F43.10 - Post-traumatic stress disorder, unspecified (2) Borderline personality disorder: Status: Chronic Code(s): F60.3 - Borderline personality disorder (3) Bipolar II disorder with melancholic features: Status: Ruled-out Code(s): F31.81 - Bipolar II disorder Assessment and Plan: currently will leave as rule out as other psychiatric illnesses (depression/ptsd/borderline PD) seem fully adequate to explain symptoms (4) MDD (major depressive disorder), recurrent episode, severe: Status: Acute Code(s): F33.2 - Major depressive disorder, recurrent severe without psychotic features Assessment and Plan: Impression: Severe PTSD, depression history, borderline personality disorder, mood congruent auditory hallucinations; chronic intermittent SI presents for ongoing si/ah HOSPITAL COURSE/REASONING: Patient is starting to wonder if coming to the hospital is causing regression and that it might be to her advantage to work on coping with painful emotions at her senior living, rather than coming to the hospital. Patient's only auditory hallucination is of her father's voice and and how it relates to her past trauma; no other psychotic symptoms at all. Patient is diagnosed with PTSD, depression and borderline personality disorder all of which could be etiology of such AH; to writers knowledge, no dx of a psychotic disorder. Pt reports Haldol started a few months ago (<1 yr) and been increased however it has not removed AH (save minimally after DEC, however patient is ambivalent if this is true). Bipolar is listed as diagnosis however hx does not seem to support it. Conversely, patient is not on an SSRI or SNRI which are typically used as first-line treatments for PTSD. Outgoing Inspector reviewed pt history again with patient and she denies any hx of manic type symptoms or behaviors. Outgoing Inspector also discussed case with staff on the unit who know her well and for over 7+ years, including nurse residential care facility manager and SW, who agree that patient has never presented with manic behaviors or had manic episodes; they also agree that patient has not been presented as psychotic but that AH have always been mood congruent. Pt says she's had so many diagnoses over her life time but thinks she really only has depression and PTSD from trauma. literary writer agrees that this is most likely and discussed med changes to focus on treating PtSD/depression rather that bipolar/schizophrenia to which pt fully agrees. However, it's noteworthy that pt does have hx of significant self harm when getting dysregulated; she is coming off mood stabilzer haldol and starting SSRI, and it is thus unsafe to make these medication changes in the community; rather pt needs to remain on psychiatric unit for the time being to which pt agrees to. -patient continues to work on coping skills; prazosin seems to have helped eliminate nightmares. Patient likes medication regimen change and does not miss Haldol, agreeing to further taper and discontinue. No other medication side effects reported. 07/24 - ongoing -pt continues to struggle with AH of her father and now some upsetting mental images as well; some speculation that lowered Haldol could be to blame, however she's had current presentation even when on full home dose of haldol. pt agrees to keep med regimen as is for now and continue to utilize coping skills; she says that at home, she has more options for distraction than on unit and asks about potential discharge. -pt has been tolerating the continued tapering of Haldol; she denies any worsening symptoms with it's abscence and would like to discontinue it to which literary writer agrees. She is using Thorazine as a PRN instead which is partially helpful. -increased Prozac to 40mg daily to focus on ptsd/depression, to which pt agrees; may need further titration but this can be handled as outpt -pt asking for discharge this plan INCREASED Prozac to 40mg daily -DC Haldol Dec -taper Haldol PO to 1mg BID and then dc (was on 4mg TID + Haldol Dec); -continue thorazine 50mg but keep as PRN for dysregulated feelings which pt says has been helpful -LOWER cogentin to 0.5mg tid down from 1 mg TID (for what she describes as akath esia; should need less with lowered haldo) -DC Doxasoin 4mg qhs -RESTARTed/continue prazosin 2mg qhs which she says worked better (doxazosin:prazosin is roughly 2:1) -literary writer called and left message for patient's outpatient psychiatrist Dr. Gaspar; no reply encouraged ongoing coping/checking in with nursing staff Greater than 50% of the session was spent on counseling and/or coordination of care Reason for contiued inpatient stay Substantial Risk for: other (approaching discharge)
[2021-07-26] MEDS: chlorproMAZINE HCl 25 MG TABLET 50 MG PO ×3 (10:19→16:17)
[2021-07-26] MEDS: hydrOXYzine HCL 50 MG TABLET PO (13:10)
[2021-07-26] MEDS: traZODone HCL 50 MG TABLET 150 MG PO (21:00)
[2021-07-26] MEDS: VerapamiL HCL SR 240 MG TABLET.ER PO (21:01)
[2021-07-26] MEDS: Prazosin HCL 1 MG CAPSULE 2 MG PO (21:02)
[2021-07-26] MEDS: Montelukast Sodium 10 MG TABLET PO (21:03)
[2021-07-26] MEDS: Fluticasone Propionate 100 MCG BLST.W.DEV 2 PUFF INHALE (21:06)
[2021-07-27 06:00] VITALS: BP 104/53; PULSE 104; RESP 16; TEMP 35.9; O2SAT 98
[2021-07-27] MEDS: Omeprazole 20 MG CAPSULE.DR PO ×2 (06:43→17:51)
[2021-07-27] MEDS: polyethylene glycoL 3350 17 GM POWD.PACK PO (08:32)
[2021-07-27] MEDS: Nicotine 21 MG PATCH.TD24 TRANSDERMA (08:32)
[2021-07-27] MEDS: metFORMIN HCl 500 MG TABLET PO ×2 (08:32→21:34)
[2021-07-27 08:33] VITALS: BP 121/64; PULSE 84
[2021-07-27] MEDS: lisinopriL 5 MG TABLET PO (08:33)
[2021-07-27] MEDS: Benztropine Mesylate 0.5 MG TABLET PO ×2 (08:34→21:33)
[2021-07-27] MEDS: FLUoxetine HCl 20 MG CAPSULE 40 MG PO (08:34)
[2021-07-27] MEDS: HaloperidoL 1 MG TABLET PO ×2 (08:34→21:34)
[2021-07-27 08:35] VITALS: BP 121/64; PULSE 84
[2021-07-27] MEDS: Ferrous Sulfate 324 MG TABLET.DR PO (08:35)
[2021-07-27] MEDS: cloNIDine HCL 0.1 MG TABLET 0.05 MG PO ×2 (08:35→13:55)
[2021-07-27] MEDS: Atorvastatin Calcium 10 MG TABLET PO (08:37)
[2021-07-27] MEDS: Fluticasone Propionate 100 MCG BLST.W.DEV 2 PUFF INHALE ×2 (09:03→21:37)
[2021-07-27] MEDS: chlorproMAZINE HCl 25 MG TABLET 50 MG PO ×3 (09:04→18:49)
[2021-07-27 13:55] VITALS: BP 121/64; PULSE 84
[2021-07-27] MEDS: hydrOXYzine HCL 50 MG TABLET PO (13:55)
--- NOTE | 2021-07-27 15:35 | P.PNPSI_ITS ---
Subjective Subjective Date of Service: 07/27/21 Reason For Visit: SI Interim History: Patient reports that she slept well again last night without nightmares. She said auditory hallucinations are less today and she has been coping well. She intermittently has some thoughts of self-harm but has been able to resist them well. She says she is looking for to going home tomorrow and likes her current medication plan. Patient also was encouraged to learn she is being scheduled for T MS starting next week. Patient reports that she feels she can remain safe and will reach out for help if otherwise. Mental Status Exam Mental Status Exam Narrative: Patient Appearance:?unkempt Patient Orientation:?Person, Place, Time and Situation Level of Consciousness:?Awake Patient Behavior:?cooperative; Mood Description: anxious but less so Affect Description:?calm Patient Cognition Impaired:?No Ability to Follow Directions:?Fair Speech Pattern:?Clear Hallucinations:?Auditory Hallucinations Thought Process:?Goal Oriented Thought Content:?Perseveration; denies SI/HI;? mild, intermittent urges to self harm able to be ignored Abnormal Motor Activity Signs and Symptoms:?no Psychomotor Retardation Judgment:?good; working hard to use coping skills Diagnostics Vital Signs (24Hr): Vital Signs - 24 hr 07/26/21 16:05 07/26/21 16:16 07/26/21 21:01 Temperature 98.2 F Pulse Rate 71 71 73 Respiratory Rate Blood Pressure 129/79 129/79 147/83 H Pulse Oximetry 07/26/21 21:02 07/27/21 06:00 07/27/21 08:33 Temperature 96.7 F L Pulse Rate 73 104 H 84 Respiratory Rate 16 Blood Pressure 147/83 H 104/53 L 121/64 Pulse Oximetry 98 07/27/21 08:35 07/27/21 13:55 Temperature Pulse Rate 84 84 Respiratory Rate Blood Pressure 121/64 121/64 Pulse Oximetry Body Mass Index 36.3 Labs Results: 07/15/21 11:01 07/26/21 07:56 Labs: Laboratory Results - last 48 hr 07/26/21 07:56 Sodium 140 Potassium 4.2 Chloride 105 Carbon Dioxide 27 Anion Gap 12 BUN 14 Creatinine 0.73 Estim Creat Clear Calc 115.8 Estimated GFR > 60 Random Glucose 95 Calcium 9.0 Medications Medications Current Medications Acetaminophen (Acetaminophen 325 Mg Tablet) 650 mg PO Q6H PRN PRN Reason: Headache/Pain Mild Scale (1-3) Last Admin: 07/17/21 13:43 Dose: 650 mg Documented by: Al Hydroxide/Mg Hydroxide (Magnesium Hydrox/Alum Hydrox 30 Ml Oral.Susp) 30 ml PO Q6H PRN PRN Reason: Heartburn/Nausea Albuterol Sulfate (Albuterol Sulfate 90 Mcg 8 Gm Inhaler) 2 puff INHALE Q4H PRN PRN Reason: Shortness Of Breath Atorvastatin Calcium (Atorvastatin Calcium 10 Mg Tablet) 10 mg PO DAILY [facility] Last Admin: 07/27/21 08:37 Dose: 10 mg Documented by: Benztropine Mesylate (Benztropine Mesylate 0.5 Mg Tablet) 0.5 mg PO BID [facility] Last Admin: 07/27/21 08:34 Dose: 0.5 mg Documented by: Chlorpromazine HCl (Chlorpromazine Hcl 25 Mg Tablet) 50 mg PO QID PRN PRN Reason: Psychosis Last Admin: 07/27/21 11:59 Dose: 50 mg Documented by: Clonidine HCl (Clonidine Hcl 0.1 Mg Tablet) 0.05 mg PO BID@0830,1430 [facility]; Protocol Last Admin: 07/27/21 13:55 Dose: 0.05 mg Documented by: Ferrous Sulfate (Ferrous Sulfate 324 Mg Tablet.Dr) 324 mg PO DAILY [facility] Last Admin: 07/27/21 08:35 Dose: 324 mg Documented by: Fluoxetine HCl (Fluoxetine Hcl 20 Mg Capsule) 40 mg PO DAILY [facility] Last Admin: 07/27/21 08:34 Dose: 40 mg Documented by: Fluticasone Propionate (Fluticasone Propionate 100 Mcg Blst.W.Dev) 2 puff INHALE RBID [facility] Last Admin: 07/27/21 09:03 Dose: 2 puff Documented by: Haloperidol (Haloperidol 1 Mg Tablet) 1 mg PO BID [facility] Stop: 07/27/21 23:59 Last Admin: 07/27/21 08:34 Dose: 1 mg Documented by: Hydroxyzine HCl (Hydroxyzine Hcl 50 Mg Tablet) 50 mg PO Q6H PRN PRN Reason: Anxiety Last Admin: 07/27/21 13:55 Dose: 50 mg Documented by: Lisinopril (Lisinopril 5 Mg Tablet) 5 mg PO DAILY [facility]; Protocol Last Admin: 07/27/21 08:33 Dose: 5 mg Documented by: Magnesium Hydroxide (Milk Of Magnesia 30 Ml Oral.Susp) 30 ml PO DAILY PRN PRN Reason: Constipation Metformin HCl (Metformin Hcl 500 Mg Tablet) 500 mg PO BID [facility] Last Admin: 07/27/21 08:32 Dose: 500 mg Documented by: Montelukast Sodium (Montelukast Sodium 10 Mg Tablet) 10 mg PO BEDTIME [facility] Last Admin: 07/26/21 21:03 Dose: 10 mg Documented by: Nicotine (Nicotine 21 Mg Patch.Td24) 21 mg TRANSDERMA DAILY [facility] Last Admin: 07/27/21 08:32 Dose: 21 mg Documented by: Omeprazole (Omeprazole 20 Mg Capsule.Dr) 20 mg PO BID@0630,1630 [facility] Last Admin: 07/27/21 06:43 Dose: 20 mg Documented by: Polyethylene Glycol (Polyethylene Glycol 3350 17 Gm Powd.Pack) 17 gm PO DAILY [facility] Last Admin: 07/27/21 08:32 Dose: 17 gm Documented by: Prazosin HCl (Prazosin Hcl 1 Mg Capsule) 2 mg PO BEDTIME [facility]; Protocol Last Admin: 07/26/21 21:02 Dose: 2 mg Documented by: Trazodone HCl (Trazodone Hcl 50 Mg Tablet) 150 mg PO BEDTIME [facility] Last Admin: 07/26/21 21:00 Dose: 150 mg Documented by: Trazodone HCl (Trazodone Hcl 50 Mg Tablet) 50 mg PO BEDTIME PRN PRN Reason: Insomnia Last Admin: 07/22/21 01:53 Dose: 50 mg Documented by: Verapamil HCl (Verapamil Hcl Sr 240 Mg Tablet.Er) 240 mg PO BEDTIME [facility]; Protocol Last Admin: 07/26/21 21:01 Dose: 240 mg Documented by: Allergies Allergies Allergy/AdvReac Type Severity Reaction Status Date / Time Fish Containing Products Allergy Severe ANAPHYLAXIS Verified 06/15/21 17:06 codeine [Codeine] Allergy Unknown RASH Verified 06/15/21 17:06 Penicillins Allergy Unknown RASH Verified 06/15/21 17:06 prednisone [Prednisone] Allergy Unknown RASH Verified 06/15/21 17:06 Sulfa (Sulfonamide Allergy Unknown RASH Verified 06/15/21 17:06 Antibiotics) [Sulfa (Sulfonamides)] azithromycin [AZITHROMYCIN] AdvReac Severe RASH Verified 06/15/21 17:06 nicotine AdvReac Unknown HEART Verified 06/15/21 17:06 PALPITATION TO NICOTINE GUM Seafood Allergy Severe ANAPHYLAXIS Uncoded 07/01/20 16:44 From Geodon Allergy Unknown DYSURIA, Uncoded 07/01/20 16:44 RASH Assessment & Plan Assessment & Plan (1) PTSD (post-traumatic stress disorder): Status: Chronic Code(s): F43.10 - Post-traumatic stress disorder, unspecified (2) Borderline personality disorder: Status: Chronic Code(s): F60.3 - Borderline personality disorder (3) Bipolar II disorder with melancholic features: Status: Ruled-out Code(s): F31.81 - Bipolar II disorder Assessment and Plan: currently will leave as rule out as other psychiatric illnesses (depression/ptsd/borderline PD) seem fully adequate to explain symptoms (4) MDD (major depressive disorder), recurrent episode, severe: Status: Acute Code(s): F33.2 - Major depressive disorder, recurrent severe without psychotic features Assessment and Plan: Impression: Severe PTSD, depression history, borderline personality disorder, mood indira ruent auditory hallucinations; chronic intermittent SI presents for ongoing si/ah HOSPITAL COURSE/REASONING: Patient is starting to wonder if coming to the hospital is causing regression and that it might be to her advantage to work on coping with painful emotions at her skilled nursing, rather than coming to the hospital. Patient's only auditory hallucination is of her father's voice and and how it relates to her past trauma; no other psychotic symptoms at all. Patient is diagnosed with PTSD, depression and borderline personality disorder all of which could be etiology of such AH; to writers knowledge, no dx of a psychotic disorder. Pt reports Haldol started a few months ago (<1 yr) and been increased however it has not removed AH (save minimally after SEP, however patient is ambivalent if this is true). Bipolar is listed as diagnosis however hx does not seem to support it. Conversely, patient is not on an SSRI or SNRI which are typically used as first-line treatments for PTSD. Administrative Dietitian reviewed pt history again with patient and she denies any hx of manic type symptoms or behaviors. Administrative Dietitian also discussed case with staff on the unit who know her well and for over 7+ years, including nurse area field manager and SW, who agree that patient has never presented with manic behaviors or had manic e pisodes; they also agree that patient has not been presented as psychotic but that AH have always been mood congruent. Pt says she's had so many diagnoses over her life time but thinks she really only has depression and PTSD from trauma. internal communications writer agrees that this is most likely and discussed med changes to focus on treating PtSD/depression rather that bipolar/schizophrenia to which pt fully agrees. However, it's noteworthy that pt does have hx of significant self harm when getting dysregulated; she is coming off mood stabilzer haldol and starting SSRI, and it is thus unsafe to make these medication changes in the community; rather pt needs to remain on psychiatric unit for the time being to which pt agrees to. -patient continues to work on coping skills; prazosin seems to have helped elim inate nightmares. Patient likes medication regimen change and does not miss Haldol, agreeing to further taper and discontinue. No other medication side effects reported. 07/24 - ongoing -pt continues to struggle with AH of her father and now some upsetting mental images as well; some speculation that lowered Haldol could be to blame, however she's had current presentation even when on full home dose of haldol. pt agrees to keep med regimen as is for now and continue to utilize coping skills; she says that at home, she has more options for distraction than on unit and asks about potential discharge. -pt has been tolerating the continued tapering of Haldol; she denies any worsening symptoms with it's abscence and would like to discontinue it to which internal communications writer agrees. She is using Thorazine as a PRN instead which is partially helpful. -increased Prozac to 40mg daily to focus on ptsd/depression, to which pt agrees; may need further titration but this can be handled as outpt -pt asking for discharge this Patient remains at baseline. She continues to have intermittent auditory hallucinations and self-harming urges however she reports she has been able to cope through them using her coping skills. Patient continues to want discharge back to her skilled nursing where she feels there are more ways to distract herself. She likes her current medication regimen and feels ready for discharge. Administrative Dietitian and team have discussed this and agree that patient is at baseline and appropri ate for discharge. It is noteworthy to mention that at her baseline, [place] in the community with chronic SI and is chronically at risk for attempting suicide. And at baseline, patient remains a high risk patient. Given her hx and where she is in her overall treatment, it remains likely that she will at some point in the future again decompensate and possibly engage in unsafe behaviors.? However as mentioned this behavior is chronic and is not going to change with longer inpatient stay; rather this type of behavior will only likely resolve with long-term outpatient therapy which pt herself agrees and to which she is committed. She continues to deny any SI at all and has maximized the resources available to her during this admission. Patient is not in imminent risk of harm to self and appropriate for discharge. plan INCREASED Prozac to 40mg daily -DC Haldol Dec -taper Haldol PO to 1mg BID and then dc (was on 4mg TID + Haldol Dec); -continue thorazine 50mg but keep as PRN for dysregulated feelings which pt says has been helpful -LOWER cogentin to 0.5mg tid down from 1 mg TID (for what she describes as akathesia; should need less with lowered haldo) -DC Doxasoin 4mg qhs -RESTARTed/continue prazosin 2mg qhs which she says worked better (doxazosin:prazosin is roughly 2:1) -internal communications writer called and left message for patient's outpatient psychiatrist Dr. Gaspar; no reply encouraged ongoing coping/checking in with nursing staff Greater than 50% of the session was spent on counseling and/or coordination of care Reason for contiued inpatient stay Substantial Risk for: stable for discharge
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
--- NOTE | 2021-07-27 16:02 | P.DS_ITS ---
DS: Providers Provider Date of Service: 07/28/21 Date of admission: 07/15/21 14:09 Date of discharge: 07/28/21 Primary care physician: Unknown Physician Attending physician on admission: Jay Reed Attending physician on discharge: Jay Reed DS: Diagnosis Discharge Diagnosis (1) PTSD (post-traumatic stress disorder): Status: Chronic (2) Borderline personality disorder: Status: Chronic (3) Bipolar II disorder with melancholic features: Status: Deleted (4) MDD (major depressive disorder), recurrent episode, severe: Status: Acute DS: Medications Discharge Medications Home Medications: Home Medications Medication Instructions Recorded Confirmed trazodone 150 mg tablet 150 mg PO BEDTIME 01/27/21 07/14/21 polyethylene glycol 3350 17 gram 17 g PO DAILY PRN 02/12/21 07/11/21 oral powder packet (Miralax) atorvastatin 10 mg tablet 1 tab PO DAILY 05/29/21 07/14/21 ferrous sulfate 325 mg (65 mg 1 tab PO DAILY 05/29/21 07/14/21 iron) tablet,delayed release fluticasone propionate 110 2 puff INHALATION BID 05/29/21 07/14/21 mcg/actuation HFA aerosol inhaler (Flovent HFA) lisinopril 5 mg tablet 1 tab PO DAILY 05/29/21 07/14/21 metformin 500 mg tablet 1 tab PO BID 05/29/21 07/14/21 montelukast 10 mg tablet 1 tab PO BEDTIME 05/29/21 07/14/21 norethindrone (contraceptive) 0.35 0.35 mg PO DAILY 05/29/21 07/11/21 mg tablet (Deblitane) pantoprazole 40 mg tablet,delayed 1 tab PO BID 05/29/21 07/14/21 release verapamil 240 mg tablet,extended 1 tab PO BEDTIME 05/29/21 07/14/21 release albuterol sulfate 90 mcg/actuation 2 puff INHALATION Q4H PRN 06/15/21 07/14/21 aerosol inhaler (Ventolin HFA) Previous Rx's Medication Instructions Recorded benztropine 0.5 mg tablet 0.5 mg PO BID PRN 30 Days #60 tab 07/27/21 chlorpromazine 50 mg tablet 50 mg PO QID PRN 30 Days #120 tab 07/27/21 clonidine HCl 0.1 mg tablet 0.05 mg PO BID@0830,1430 30 Days 07/27/21 #30 tab fluoxetine 20 mg capsule 40 mg PO DAILY 30 Days #60 cap 07/27/21 hydroxyzine HCl 50 mg tablet 50 mg PO QID PRN 30 Days #120 tab 07/27/21 nicotine 21 mg/24 hr daily 21 mg TRANSDERMAL DAILY PRN 28 07/27/21 transdermal patch Days #28 ea prazosin 1 mg capsule 2 mg PO BEDTIME 30 Days #60 cap 07/27/21 Mental Status Exam Mental Status Exam Narrative: Patient Appearance:?unkempt Patient Orientation:?Person, Place, Time and Situation Level of Consciousness:?Awake Patient Behavior:?cooperative; Mood Description: anxious but less so Affect Description:?calm Patient Cognition Impaired:?No Ability to Follow Directions:?Fair Speech Pattern:?Clear Hallucinations:?Auditory Hallucination, but less so and tolerable level Thought Process:?Goal Oriented Thought Content:?Perseveration; denies SI/HI;? mild, intermittent urges to self harm that are able to be ignored Abnormal Motor Activity Signs and Symptoms:?no Psychomotor Retardation Judgment:?good; working hard to use coping skills Data Data Completed and Pending Completed studies during hospitalization [Text1]: 07/26/21 07:56 Sodium 140 Potassium 4.2 Chloride 105 Carbon Dioxide 27 Anion Gap 12 BUN 14 Creatinine 0.73 Estim Creat Clear Calc 115.8 Estimated GFR > 60 Random Glucose 95 Calcium 9.0 07/14/21 19:34 Urine clean catch - Urine sanchez top Urine Culture - Final DS: Summary Hospital Course Hospital Course: Patient is starting to wonder if coming to the hospital is causing regression and that it might be to her advantage to work on coping with painful emotions at her correction, rather than coming to the hospital. Patient's only auditory hallucination is of her father's voice and and how it relates to her past trauma; no other psychotic symptoms at all. Patient is diagnosed with PTSD, depression and borderline personality disorder all of which could be etiology of such AH;? to writers knowledge, no dx of a psychotic disorder. Pt reports Haldol started a few months ago (<1 yr) and been increased however it has not removed AH (save minimally after DEC, however patient is ambivalent if this is true). Bipolar is listed as diagnosis however hx does not seem to support it. Conversely, patient is not on an SSRI or SNRI which are typically used as first-line treatments for PTSD. Ski Tow Operator reviewed pt history again with patient and she denies any hx of manic type symptoms or behaviors. Ski Tow Operator also discussed case with staff on the unit who know her well and for over 7+ years, including nurse thoroughbred horse farm manager and SW, who agree that patient has never presented with manic behaviors or had manic episodes; they also agree that patient has not been presented as psychotic but that AH have always been mood congruent. Pt says she's had so many diagnoses over her life time but thinks she really only has depression and PTSD from trauma. senior mortgage underwriter agrees that this is most likely and discussed med changes to focus on treating PtSD/depression rather that bipolar/schizophrenia to which pt fully agrees. However, it's noteworthy that pt does have hx of significant self harm when getting dysregulated; she is coming off mood stabilzer haldol and starting SSRI, and it is thus unsafe to make these medication changes in the community; rather pt needs to remain on psychiatric unit for the time being to which pt agrees to. -patient continues to work on coping skills; prazosin seems to have helped eliminate nightmares.? Patient likes medication regimen change and does not miss Haldol, agreeing to further taper and discontinue.? No other medication side effects reported. 07/24 - ongoing -pt continues to struggle with AH of her father and now some upsetting mental images as well; some speculation that lowered Haldol could be to blame, however she's had current presentation even when on full home dose of haldol. pt agrees to keep med regimen as is for now and continue to utilize coping skills; she says that at home, she has more options for distraction than on unit and asks about potential discharge. -pt has been tolerating the continued tapering of Haldol; she denies any worsen ing symptoms with it's abscence and would like to discontinue it to which senior mortgage underwriter agrees. She is using Thorazine as a PRN instead which is partially helpful. -increased Prozac to 40mg daily to focus on ptsd/depression, to which pt agrees; may need further titration but this can be handled as outpt -pt asking for discharge this Patient remains at baseline.? She continues to have intermittent auditory hallucinations and self-harming urges however she reports she has been able to cope through them using her coping skills.? Patient continues to want discharge back to her correction where she feels there are more ways to distract herself.? She likes her current medication regimen and feels ready for discharge.? Ski Tow Operator and team have discussed this and agree that patient is at baseline and appropriate for discharge. It is noteworthy to mention that at her baseline, Lucita?lives in the community with chronic SI and is chronically at risk for attempting suicide. And at baseline, patient remains a high risk patient. Given her hx and where she is in her overall treatment, it remains likely that she will at some point in the future again decompensate and possibly engage in unsafe behaviors.? However as mentioned this behavior is chronic and is not going to change with longer inpatient stay; rather this type of behavior will only likely resolve with long-term outpatient therapy which pt herself agrees and to which she is committed. She continues to deny any SI at all and has maximized the resources available to her during this admission.? Patient is not in imminent risk of harm to self and appropriate for discharge. plan INCREASED Prozac to 40mg daily -DC Haldol Dec -taper Haldol PO to 1mg BID and then dc (was on 4mg? TID + Haldol Dec); -continue thorazine 50mg but keep as PRN for dysregulated feelings which pt says has been helpful -LOWER cogentin to 0.5mg tid down from 1 mg TID (for what she describes as akathesia; should need less with lowered haldo) -DC Doxasoin 4mg qhs -RESTARTed/continue prazosin 2mg qhs which she says worked better (doxazosin:prazosin is roughly 2:1)? -senior mortgage underwriter called and left message for patient's outpatient psychiatrist Dr. Gaspar; no reply Time spent discussing smoking cessation with patient: 3 to 10 minutes Status at Discharge Functional status at discharge: independent ambulation Overall status at discharge: patient is back to baseline Time Spent with Patient Time attestation: Total time spent providing and/or coordinating discharge services: Time spent: Greater than 30 minutes Discharge Plan Discharge Patient Disposition: Home, Self-Care Discharge Diagnosis: PTSD, acute on Chronic [facility] - [facility]/02/21 11:00 am (In office) Psych Prescriber: Dylan Calderón ([facility]) [Other] - 07/29/21 3:00 pm (Telehealth) TMS: [facility] [Other] - 08/02/21 12:00 pm (This first appointment is an hour and a half. TMS will be four times a week, Sunday through Sunday, for a half hour. They will try to get you in around noon each day. ) Maribel Marquez NP [Nurse Practitioner] - 08/02/21 8:10 am (in office) Discharge Medications: New benztropine 0.5 mg Tablet 0.5 mg PO BID PRN (Reason: EPS) 30 Days Qty: 60 RF: 0 fluoxetine 20 mg Capsule 40 mg PO DAILY 30 Days Qty: 60 RF: 0 hydroxyzine HCl 50 mg Tablet 50 mg PO QID PRN (Reason: Anxiety) 30 Days Qty: 120 RF: 0 nicotine 21 mg/24 hr Patch 24 Hour 21 mg transdermal DAILY PRN (Reason: smoking cessation) 28 Days Qty: 28 RF: 0 Continued trazodone 150 mg tablet 150 mg PO BEDTIME RF: 0 polyethylene glycol 3350 [Miralax] 17 gram Powder In Packet 17 g PO DAILY PRN (Reason: Constipation) RF: 0 metformin 500 mg tablet 1 tab PO BID RF: 0 atorvastatin 10 mg tablet 1 tab PO DAILY RF: 0 pantoprazole 40 mg tablet,delayed release (DR/EC) 1 tab PO BID@0630,1630 RF: 0 verapamil 240 mg tablet extended release 1 tab PO BEDTIME RF: 0 montelukast 10 mg tablet 1 tab PO BEDTIME RF: 0 lisinopril 5 mg tablet 1 tab PO DAILY RF: 0 ferrous sulfate 325 mg (65 mg iron) tablet,delayed release (DR/EC) 1 tab PO DAILY RF: 0 Flovent HFA 110 mcg/actuation HFA aerosol inhaler 2 puff inhalation BID RF: 0 norethindrone (contraceptive) [Deblitane] 0.35 mg Tablet 0.35 mg PO DAILY RF: 0 albuterol sulfate [Ventolin HFA] 90 mcg/actuation HFA aerosol inhaler 2 puff inhalation Q4H PRN (Reason: Shortness Of Breath) RF: 0 Discontinued chlorpromazine 50 mg Tablet 50 mg PO DAILY PRN (Reason: Psychosis) RF: 0 doxazosin 1 mg tablet 4 mg PO BEDTIME RF: 0 haloperidol 1 mg tablet 3 tab PO TID RF: 0 haloperidol decanoate 100 mg/mL solution 1 ml IM Q4W RF: 0 benztropine 1 mg tablet 1 mg PO TID 30 Days Qty: 90 RF: 0 No Action prazosin 1 mg Capsule 3 mg PO BEDTIME 30 Days Qty: 90 RF: 0 chlorpromazine 25 mg Tablet 50 mg PO QID 30 Days Qty: 240 RF: 0 chlorpromazine 25 mg Tablet 50 mg PO DAILY PRN (Reason: agitation) 30 Days Qty: 30 RF: 0 clonidine HCl 0.1 mg tablet 0.1 mg PO BID@0830,1430 RF: 0 ibuprofen 600 mg tablet 1 tab PO Q6H PRN (Reason: Pain (Scale Score 1-3)) RF: 0 Discharge Orders: Discharge Order (Routine); Ordered 07/28/21 Ordered By: Jay Reed Diet: regular diet Activity on Discharge: As tolerated Stand Alone Forms: Patient Portal Discharge page, Community Support Care Plan Goals: Maintain mood and safe behaviors Take medications as prescribed Practice coping skills Continue with outpatient providers and reach out to them as needed Health Concerns: Mood stability and behaviors High Blood pressure High Cholesterol Plan of Treatment: Follow up with your PCP, psychiatric provider and other outpatient providers regarding above concerns Take medications as prescribed Assessment: Risk assessment at time of discharge:? Patient was interviewed prior to discharge and found to be fully oriented and without any SI or HI. Patient has insight and demonstrates good judgment in terms of wanting to pursue treatment. Patient is not in imminent risk of harm to self or others and has a safety plan that includes presenting to the closest ER or calling 911 if feeling unsafe.? Patient has been observed closely by nursing and unit staff throughout admission; patient has not engaged in any behaviors that suggest dangerousness to self or others and has demonstrated appropriate behaviors and impulse control. Discharge Date/Time: 07/28/21 14:30
[2021-07-27 18:00] VITALS: BP 124/65; PULSE 78; RESP 16; TEMP 36.8; O2SAT 99
[2021-07-27 21:32] VITALS: BP 122/86; PULSE 80
[2021-07-27] MEDS: Prazosin HCL 1 MG CAPSULE 2 MG PO (21:32)
[2021-07-27] MEDS: VerapamiL HCL SR 240 MG TABLET.ER PO (21:32)
[2021-07-27] MEDS: traZODone HCL 50 MG TABLET 150 MG PO (21:33)
[2021-07-27] MEDS: Montelukast Sodium 10 MG TABLET PO (21:34)
[2021-07-28] MEDS: Benztropine Mesylate 0.5 MG TABLET PO (08:13)
[2021-07-28] MEDS: Ferrous Sulfate 324 MG TABLET.DR PO (08:13)
[2021-07-28] MEDS: Atorvastatin Calcium 10 MG TABLET PO (08:13)
[2021-07-28] MEDS: FLUoxetine HCl 20 MG CAPSULE 40 MG PO (08:13)
[2021-07-28] MEDS: Omeprazole 20 MG CAPSULE.DR PO (08:13)
[2021-07-28] MEDS: metFORMIN HCl 500 MG TABLET PO (08:13)
[2021-07-28] MEDS: Nicotine 21 MG PATCH.TD24 TRANSDERMA (08:14)
[2021-07-28] MEDS: Fluticasone Propionate 100 MCG BLST.W.DEV 2 PUFF INHALE (08:22)
[2021-07-28 08:23] VITALS: BP 120/77; PULSE 90
[2021-07-28] MEDS: lisinopriL 5 MG TABLET PO (08:23)
[2021-07-28 08:25] VITALS: BP 120/77; PULSE 96
[2021-07-28] MEDS: cloNIDine HCL 0.1 MG TABLET 0.05 MG PO (08:25)
[2021-07-28] MEDS: polyethylene glycoL 3350 17 GM POWD.PACK PO (08:29)
[2021-07-28] MEDS: hydrOXYzine HCL 50 MG TABLET PO (11:34)
[2021-07-28 13:59] VITALS: BP 96/55; PULSE 60
--- NOTE | 2021-07-28 20:40 | P.EN_ITS ---
Event Note Date of Service: 07/28/21 Event Note: see tms eval pt stable for d/c more stable no active si see d/c dyana abron
== END 2021-07-28 14:30 | disposition home or self-care (01) | DRG 885 ==
LOC: HO.ED 21:04 → HO.PM5 07-15 14:31
PROVIDERS: Physician Assistant; Admitting Provider Psychiatry & Neurology Psychiatry; Emergency Provider Internal Medicine; Visit Provider Psychiatry & Neurology Psychiatry
DX: F31.81 Bipolar II disorder (principal); R45.851 Suicidal ideations; K21.9 Gastro-esophageal reflux disease without esophagitis; E11.9 Type 2 diabetes mellitus without complications; F60.3 Borderline personality disorder; F43.10 Post-traumatic stress disorder, unspecified; F17.210 Nicotine dependence, cigarettes, uncomplicated; Z71.6 Tobacco abuse counseling; Z20.822 Contact with and (suspected) exposure to COVID-19; Z88.2 Allergy status to sulfonamides; Z88.5 Allergy status to narcotic agent; Z79.3 Long term (current) use of hormonal contraceptives; Z79.84 Long term (current) use of oral hypoglycemic drugs; Z79.899 Other long term (current) drug therapy
CPT/HCPCS: 36415; 80048; 80307; 81001; 85025; 87086; 87635; 93005; 99285

== ENCOUNTER 2021-07-31 20:27 | Emergency (ER) | payer MEDICARE, MEDICAID, SELFPAY ==
[2021-07-31 20:39] VITALS: BP 109/68; BP 128/64; PULSE 102; PULSE 104; RESP 18; TEMP 36.7; O2SAT 97; BMI 36.2
--- NOTE | 2021-07-31 21:24 | ED_ITS ---
HPI - Psych General Chief Complaint: Psychiatric Symptoms Stated Complaint: Crisis Time Seen by Provider: 07/31/21 21:09 Source: patient Mode of arrival: EMS History of Present Illness HPI Narrative: [age] year old female brought in by EMS from her fdc with reports of audio and visual hallucinations that she states are new. She states that it is her father telling her to slit her throat and her wrists and patient reports that she is feeling a little depressed, she has been taking her medications as prescribed, and she denies performing any self-harm actions. Related Data Home Medications Medication Instructions Recorded Confirmed trazodone 150 mg tablet 150 mg PO BEDTIME 01/27/21 07/14/21 polyethylene glycol 3350 17 gram 17 g PO DAILY PRN 02/12/21 07/11/21 oral powder packet (Miralax) atorvastatin 10 mg tablet 1 tab PO DAILY 05/29/21 07/14/21 ferrous sulfate 325 mg (65 mg 1 tab PO DAILY 05/29/21 07/14/21 iron) tablet,delayed release fluticasone propionate 110 2 puff INHALATION BID 05/29/21 07/14/21 mcg/actuation HFA aerosol inhaler (Flovent HFA) lisinopril 5 mg tablet 1 tab PO DAILY 05/29/21 07/14/21 metformin 500 mg tablet 1 tab PO BID 05/29/21 07/14/21 montelukast 10 mg tablet 1 tab PO BEDTIME 05/29/21 07/14/21 norethindrone (contraceptive) 0.35 0.35 mg PO DAILY 05/29/21 07/11/21 mg tablet (Deblitane) pantoprazole 40 mg tablet,delayed 1 tab PO BID 05/29/21 07/14/21 release verapamil 240 mg tablet,extended 1 tab PO BEDTIME 05/29/21 07/14/21 release albuterol sulfate 90 mcg/actuation 2 puff INHALATION Q4H PRN 06/15/21 07/14/21 aerosol inhaler (Ventolin HFA) Previous Rx's Medication Instructions Recorded benztropine 0.5 mg tablet 0.5 mg PO BID PRN 30 Days #60 tab 07/27/21 chlorpromazine 50 mg tablet 50 mg PO QID PRN 30 Days #120 tab 07/27/21 clonidine HCl 0.1 mg tablet 0.05 mg PO BID@0830,1430 30 Days 07/27/21 #30 tab fluoxetine 20 mg capsule 40 mg PO DAILY 30 Days #60 cap 07/27/21 hydroxyzine HCl 50 mg tablet 50 mg PO QID PRN 30 Days #120 tab 07/27/21 nicotine 21 mg/24 hr daily 21 mg TRANSDERMAL DAILY PRN 28 07/27/21 transdermal patch Days #28 ea prazosin 1 mg capsule 2 mg PO BEDTIME 30 Days #60 cap 07/27/21 Allergies Allergy/AdvReac Type Severity Reaction Status Date / Time Fish Containing Products Allergy Severe ANAPHYLAXIS Verified 07/31/21 20:43 codeine [Codeine] Allergy Unknown RASH Verified 07/31/21 20:43 Penicillins Allergy Unknown RASH Verified 07/31/21 20:43 prednisone [Prednisone] Allergy Unknown RASH Verified 07/31/21 20:43 Sulfa (Sulfonamide Allergy Unknown RASH Verified 07/31/21 20:43 Antibiotics) [Sulfa (Sulfonamides)] azithromycin [AZITHROMYCIN] AdvReac Severe RASH Verified 07/31/21 20:43 nicotine AdvReac Unknown HEART Verified 07/31/21 20:43 PALPITATION TO NICOTINE GUM Seafood Allergy Severe ANAPHYLAXIS Uncoded 07/31/21 20:43 From Geodon Allergy Unknown DYSURIA, Uncoded 07/31/21 20:43 RASH Review of Systems Review of Systems: Pertinent positives and negatives as stated in HPI 10 point review of systems is otherwise negative. [facility] Past Medical History Source: nursing notes reviewed Medical History Bronchitis Diabetes type 2, controlled GERD (gastroesophageal reflux disease) Hyperlipidemia MDD (major depressive disorder), recurrent episode, severe Mood disorder Overdose PTSD (post-traumatic stress disorder) Social History Social History 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: None 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 Other:: pt lives in fdc with 3 other peers Housing: Assisted Living Facility Housing Other:: [facility] Do you presently have visiting nurse or other home services: Yes Alcohol intake: never Patient Tobacco Use Status: Current everyday Tobacco user Tobacco use type: Cigarette Cigarette Packs Per Day: 1 Cigarettes Per Day: 20.0 Years Smoked: 20 e-Cigarette/Vaping Use: Never Used Second Hand Smoke Exposure: Yes Substance Use Type: Caffiene Advance Directives: No Patient : No service: No Sexual orientation: Px. not available as she was asleep when called for assessment. Physical Exam Vital Signs: Vital Signs: Last Vital Signs Temp 98.0 F 07/31/21 20:39 Pulse 102 H 07/31/21 20:39 Resp 18 07/31/21 20:39 BP 109/68 07/31/21 20:39 Pulse Ox 97 07/31/21 20:39 Body Mass Index 36.2 VITAL SIGNS: Reviewed. GENERAL: no acute distress. HEAD: Normocephalic/atraumatic EYES: PERRLA, EOMI EARS: Ext canals without abnormality NOSE: Nares patent bilateral OROPHARYNX: no oral lesions noted, posterior pharynx clear NECK: Supple, no adenopathy LUNGS: Normal breath sounds. SpO2<97> CARDIOVASCULAR: Regular rate and rhythm without noted murmurs ABDOMEN: Soft, non-tender, non-distended with bowel sounds. SKIN: Inspection of the skin reveals no rashes NEUROLOGIC: Alert and oriented x 3, cranial nerves 2-12 are grossly intact.. PSYCH: depressed affect Course Course Course Narrative: 45-year-old female with history and clinical presentation consistent with decline stated bipolar with AVH. Patient was [facility] in the community and is stable for evaluation by Behavioral team. Reevaluation(s) Reevaluation #1: Patient placed in physician observation because the patient needed more time for behavioral team evaluation. At the time observation was started the patient's vital signs were stable, patient is alert and oriented, neuro: Nonfocal, CV RRR, lungs clear. Time: 21:45 MDM - Psych Lab Data Labs: Lab Results 07/31/21 07/31/21 07/31/21 Range/Units 21:18 21:18 21:18 Urine Color STRAW Urine Appearance CLEAR Urine pH 6.0 (5.0-8.0) Ur Specific [place] <= 1.005 (1.005-1.025) Urine Protein NEG (NEG-TRACE) MG/DL Urine Glucose (UA) NEG (NEG) MG/DL Urine Ketones NEG (NEG) MG/DL Urine Blood 1+ H (NEG) Urine Nitrite NEG (NEG) Ur Leukocyte Esterase NEG (NEG) Urine RBC 0-2 (0) /HPF Urine WBC 0 (0-4) /HPF Ur Squamous Epith Cells TRACE /LPF Urine Bacteria NONE /LPF Urine Mucus TRACE /LPF Urine Test NEGATIVE (NEGATIVE) Urine Opiates Screen Not Detected (Not Detect) Urine Fentanyl Screen Not Detected (Not Detect) Ur Barbiturates Screen Not Detected (Not Detect) Ur Phencyclidine Scrn Not Detected (Not Detect) Ur Amphetamines Screen Not Detected (Not Detect) U Benzodiazepines Scrn Not Detected (Not Detect) Urine Cocaine Screen Not Detected (Not Detect) U Marijuana (THC) Screen Not Detected (Not Detect) Ethyl Alcohol mg/dL COVID-19 (NICK) (Negative) COVID-19 [place] [employer] Com 07/31/21 07/31/21 Range/Units 21:26 21:46 Urine Color Urine Appearance Urine pH (5.0-8.0) Ur Specific [place] (1.005-1.025) Urine Protein (NEG-TRACE) MG/DL Urine Glucose (UA) (NEG) MG/DL Urine Ketones (NEG) MG/DL Urine Blood (NEG) Urine Nitrite (NEG) Ur Leukocyte Esterase (NEG) Urine RBC (0) /HPF Urine WBC (0-4) /HPF Ur Squamous Epith Cells /LPF Urine Bacteria /LPF Urine Mucus /LPF Urine Test (NEGATIVE) Urine Opiates Screen (Not Detect) Urine Fentanyl Screen (Not Detect) Ur Barbiturates Screen (Not Detect) Ur Phencyclidine Scrn (Not Detect) Ur Amphetamines Screen (Not Detect) U Benzodiazepines Scrn (Not Detect) Urine Cocaine Screen (Not Detect) U Marijuana (THC) Screen (Not Detect) Ethyl Alcohol < 10 mg/dL COVID-19 (NICK) Negative (Negative) COVID-19 Clin Com See Note Discharge Plan Discharge Clinical Impression: Bipolar disorder Prescriptions: No Action trazodone 150 mg tablet 150 mg PO BEDTIME RF: 0 polyethylene glycol 3350 [Miralax] 17 gram Powder In Packet 17 g PO DAILY PRN (Reason: Constipation) RF: 0 metformin 500 mg tablet 1 tab PO BID RF: 0 atorvastatin 10 mg tablet 1 tab PO DAILY RF: 0 pantoprazole 40 mg tablet,delayed release (DR/EC) 1 tab PO BID RF: 0 verapamil 240 mg tablet extended release 1 tab PO BEDTIME RF: 0 montelukast 10 mg tablet 1 tab PO BEDTIME RF: 0 lisinopril 5 mg tablet 1 tab PO DAILY RF: 0 ferrous sulfate 325 mg (65 mg iron) tablet,delayed release (DR/EC) 1 tab PO DAILY RF: 0 Flovent HFA 110 mcg/actuation HFA aerosol inhaler 2 puff inhalation BID RF: 0 norethindrone (contraceptive) [Deblitane] 0.35 mg Tablet 0.35 mg PO DAILY RF: 0 albuterol sulfate [Ventolin HFA] 90 mcg/actuation HFA aerosol inhaler 2 puff inhalation Q4H PRN (Reason: Shortness Of Breath) RF: 0 clonidine HCl 0.1 mg Tablet 0.05 mg PO BID@0830,1430 30 Days Qty: 30 RF: 0 prazosin 1 mg Capsule 2 mg PO BEDTIME 30 Days Qty: 60 RF: 0 benztropine 0.5 mg Tablet 0.5 mg PO BID PRN (Reason: EPS) 30 Days Qty: 60 RF: 0 fluoxetine 20 mg Capsule 40 mg PO DAILY 30 Days Qty: 60 RF: 0 hydroxyzine HCl 50 mg Tablet 50 mg PO QID PRN (Reason: Anxiety) 30 Days Qty: 120 RF: 0 chlorpromazine 50 mg Tablet 50 mg PO QID PRN (Reason: psychosis) 30 Days Qty: 120 RF: 0 nicotine 21 mg/24 hr Patch 24 Hour 21 mg transdermal DAILY PRN (Reason: smoking cessation) 28 Days Qty: 28 RF: 0
[2021-07-31 21:26] LABS: Appearance Urine CLEAR; Color Urine STRAW; Glucose Urine UA NEG (NEG); Leukocyte Esterase Urine NEG (NEG); Nitrite Urine NEG (NEG); Specific Gravity - Urine <= 1.005 (1.005-1.025); UACC Culture Trigger NO; Urine Blood 1+ (NEG); Urine Ketones NEG (NEG); Urine Protein NEG (NEG-TRACE)
[2021-07-31 21:27] LABS: UPreg QC Valid YES; Urine Pregnancy NEGATIVE (NEGATIVE)
[2021-07-31 21:35] LABS: Mucus Urine TRACE /LPF; Squamous Epithelial Cell Urine TRACE /LPF
[2021-07-31 21:36] LABS: RBC Urine 0-2 /HPF (0); WBC Urine 0 /HPF (0-4)
[2021-07-31 21:40] LABS: Amphetamine Screen Urine Not Detected (Not Detect); Barbiturates, Urine Not Detected (Not Detect); Benzodiazepines Screen Urine Not Detected (Not Detect); Cannabinoid Screen Urine Not Detected (Not Detect); Cocaine Screen Urine Not Detected (Not Detect); Fentanyl, urine Not Detected (Not Detect); Opiate Screen Urine Not Detected (Not Detect); Phencyclidine Screen Urine Not Detected (Not Detect)
[2021-07-31 21:49] LABS: COVID-19 Test Negative (Negative)
[2021-07-31 22:05] LABS: Ethanol < 10 mg/dL
[2021-08-01 01:11] VITALS: BP 128/82; PULSE 83; RESP 16; TEMP 36.7; O2SAT 95
--- NOTE | 2021-08-01 06:05 | PC.NURSE ---
Patient slept through the night, no distress observed/reported, behavior baseline non disruptive, patient got seen by [facility] in the community, disposition section 12 inpatient bed search, VSS, will continue to monitor.
--- NOTE | 2021-08-01 07:09 | PC.NURSE ---
patient appears to remain at rest at present, appears in no distress, respirations are even and unlabored
[2021-08-01 08:12] VITALS: BP 130/86; PULSE 88; RESP 14; TEMP 36.6; O2SAT 95
[2021-08-01 08:24] VITALS: BP 130/86; PULSE 88
[2021-08-01] MEDS: FLUoxetine HCl 20 MG CAPSULE 40 MG PO (08:24)
[2021-08-01] MEDS: cloNIDine HCL 0.1 MG TABLET 0.05 MG PO (08:24)
--- NOTE | 2021-08-01 11:21 | MHC.CARE ---
CARE Team met with Pt who is requesting to be discharged. Pt is verbalizing safety and does identify baseline AH but has no plan or intent to act on these. Pt reports was discharged from recently with the plan to start TMS tomorrow which Pt would like to do. CARE Team case consulted with ANGELA Hamilton who is agreement with plan to discharge home.
[2021-08-01] MEDS: hydrOXYzine HCL 50 MG TABLET PO (11:23)
== END 2021-08-01 11:34 | disposition home or self-care (01) ==
PROVIDERS: Emergency Provider Student in an Organized Health Care Education/Training Program
DX: F31.9 Bipolar disorder, unspecified (principal); E11.9 Type 2 diabetes mellitus without complications; Z79.84 Long term (current) use of oral hypoglycemic drugs; Z79.899 Other long term (current) drug therapy; Z20.822 Contact with and (suspected) exposure to COVID-19
CPT/HCPCS: 36415; 80307; 81001; 81025; 82077; 87635; 99284; 99285

== ENCOUNTER 2021-08-10 17:01 | Inpatient (IN) | payer MEDICARE, MEDICAID, SELFPAY ==
[2021-08-10 17:31] VITALS: BP 150/100; BP 152/106; PULSE 100; PULSE 117; RESP 16; TEMP 37.2; O2SAT 96; O2SAT 97; BMI 46.8
--- NOTE | 2021-08-10 17:50 | ECG_ITS ---
Test Reason : MED CLEARANCE Blood Pressure : / mmHG Vent. Rate : 094 BPM Atrial Rate : 094 BPM P-R Int : 218 ms QRS Dur : 082 ms QT Int : 368 ms P-R-T Axes : 061 053 057 degrees QTc Int : 460 ms Sinus rhythm with 1st degree A-V block with ST elevation in Inferior leads Possible Early repolarization Possible Left atrial enlargement Abnormal ECG When compared with ECG of 15-JUL-2021 12:23, No significant changes seen Referred By: Sheryl Chen Electronically Signed By:JAMAL RODRIGUEZ MD
--- NOTE | 2021-08-10 17:56 | ED_ITS ---
HPI - Psych General Chief Complaint: Psychiatric Symptoms Stated Complaint: crisis Time Seen by Provider: 08/10/21 17:26 Source: patient Mode of arrival: ambulatory Limitations: no limitations History of Present Illness HPI Narrative: 45-year-old female who is well known to this facility she has an extensive history of psychiatric problems including PTSD, borderline personality disorder, mood disorder, hyperlipidemia, GERD, multiple prior overdoses presenting to the ED via EMS from her intermediate with complaints of increased anxiety/depression with auditory hallucinations telling her to cut her throat and her bilateral arms with SI and that would be her plan. She denies any HI. She reports that she has had hallucinations in the past although not this specific were it tells her to cut her throat and her bilateral arms. She reports she is taking her medication as prescribed. She denies any other sympto ms complaints or concerns at this time. She denies any drug or alcohol usage. She denies recent travel or sick contacts. MD complaint: suicidal ideation, feels depressed and anxiety Onset (ago): day(s) (Two days) Duration: constant and getting worse History of same: Yes Relieving factors: none Exacerbating factors: none Associated psychiatric symptoms: depression, suicidal ideation, racing thoughts and auditory hallucinations Associated symptoms: denies other symptoms Treatments prior to arrival: none If self harm: admits thoughts of self harm and has plan Related Data Home Medications Medication Instructions Recorded Confirmed trazodone 150 mg tablet 150 mg PO BEDTIME 01/27/21 08/10/21 polyethylene glycol 3350 17 gram 17 g PO DAILY PRN 02/12/21 08/10/21 oral powder packet (Miralax) atorvastatin 10 mg tablet 1 tab PO DAILY 05/29/21 08/10/21 ferrous sulfate 325 mg (65 mg 1 tab PO DAILY 05/29/21 08/10/21 iron) tablet,delayed release fluticasone propionate 110 2 puff INHALATION BID 05/29/21 08/10/21 mcg/actuation HFA aerosol inhaler (Flovent HFA) lisinopril 5 mg tablet 1 tab PO DAILY 05/29/21 08/10/21 metformin 500 mg tablet 1 tab PO BID 05/29/21 08/10/21 montelukast 10 mg tablet 1 tab PO BEDTIME 05/29/21 08/10/21 norethindrone (contraceptive) 0.35 0.35 mg PO DAILY 05/29/21 07/11/21 mg tablet (Deblitane) pantoprazole 40 mg tablet,delayed 1 tab PO BID 05/29/21 08/10/21 release verapamil 240 mg tablet,extended 1 tab PO BEDTIME 05/29/21 08/10/21 release albuterol sulfate 90 mcg/actuation 2 puff INHALATION Q4H PRN 06/15/21 08/10/21 aerosol inhaler (Ventolin HFA) Previous Rx's Medication Instructions Recorded benztropine 0.5 mg tablet 0.5 mg PO BID PRN 30 Days #60 tab 07/27/21 chlorpromazine 50 mg tablet 50 mg PO QID PRN 30 Days #120 tab 07/27/21 clonidine HCl 0.1 mg tablet 0.05 mg PO BID@0830,1430 30 Days 07/27/21 #30 tab fluoxetine 20 mg capsule 40 mg PO DAILY 30 Days #60 cap 07/27/21 hydroxyzine HCl 50 mg tablet 50 mg PO QID PRN 30 Days #120 tab 07/27/21 nicotine 21 mg/24 hr daily 21 mg TRANSDERMAL DAILY PRN 28 07/27/21 transdermal patch Days #28 ea prazosin 1 mg capsule 2 mg PO BEDTIME 30 Days #60 cap 07/27/21 Allergies Allergy/AdvReac Type Severity Reaction Status Date / Time Fish Containing Products Allergy Severe ANAPHYLAXIS Verified 07/31/21 20:43 codeine [Codeine] Allergy Unknown RASH Verified 07/31/21 20:43 Penicillins Allergy Unknown RASH Verified 07/31/21 20:43 prednisone [Prednisone] Allergy Unknown RASH Verified 07/31/21 20:43 Sulfa (Sulfonamide Allergy Unknown RASH Verified 07/31/21 20:43 Antibiotics) [Sulfa (Sulfonamides)] azithromycin [AZITHROMYCIN] AdvReac Severe RASH Verified 07/31/21 20:43 nicotine AdvReac Unknown HEART Verified 07/31/21 20:43 PALPITATION TO NICOTINE GUM Seafood Allergy Severe ANAPHYLAXIS Uncoded 07/31/21 20:43 From Geodon Allergy Unknown DYSURIA, Uncoded 07/31/21 20:43 RASH Review of Systems Review of Systems: Constitutional : No Fever, No Chills ENT/Mouth : No Ear Pain, No Nasal Congestion, No sore throat Eyes: No Eye Pain, No Swelling, No Redness Cardiovascular : No Chest Pain, No SOB Respiratory : No Cough, No Sputum, No Dyspnea Gastrointestinal : No ingestions, No Nausea, No Vomiting, No Diarrhea, No Hematochezia, No Melena Genitourinary : No Dysuria, No Urinary Frequency, No Hematuria Musculoskeletal : No Myalgias Skin : No Skin Lesions, No rash Neuro : No Weakness, No Numbness, No Paresthesias, No Dizziness, No Headache Psych : + Anxiety, + Depression, + SI, + thoughts of self injury, + auditory hallucinations, no visual hallucinations, no HI Heme/Lymph: No Lymphadenopathy Endocrine : No Polyuria, No Polydipsia Yes all other systems are reviewed and are negative [facility] Past Medical History Attestation statement: The following information was validated with the patient. Medical History Bronchitis Diabetes type 2, controlled GERD (gastroesophageal reflux disease) Hyperlipidemia MDD (major depressive disorder), recurrent episode, severe Mood disorder Overdose PTSD (post-traumatic stress disorder) Social History Social History 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: None 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 Other:: pt lives in intermediate with 3 other peers Housing: Assisted Living Facility Housing Other:: [facility] Home Do you presently have visiting nurse or other home services: Yes Alcohol intake: never Patient Tobacco Use Status: Current everyday Tobacco user Tobacco use type: Cigarette Cigarette Packs Per Day: 1 Cigarettes Per Day: 20.0 Years Smoked: 20 e-Cigarette/Vaping Use: Never Used Second Hand Smoke Exposure: Yes Substance Use Type: Caffiene Advance Directives: No Advance Directives Information Provided: No Patient : No service: No Sexual orientation: Px. not available as she was asleep when called for assessment. Physical Exam Vital Signs: Vital Signs: Last Vital Signs Temp 99 F 08/10/21 17:31 Pulse 117 H 08/10/21 17:31 Resp 16 08/10/21 17:31 BP 152/106 H 08/10/21 17:31 Pulse Ox 97 08/10/21 17:31 Body Mass Index 46.8 vital signs have been reviewed as normal and appeared to be correct. Blood pressure hypertensive 152/106. Heart rate Tachycardic at 117. Respiration rate normal. Temperature normal. Oxygen saturation normal. Appearance: Alert. Oriented X3. No acute distress. Head: Normal external exam. Normocephalic. Atraumatic. Eyes: PERRLA. EOMI. Conjunctiva and sclera normal. Eyelids normal. ENT: EAC normal. TM's Normal. Pharynx normal. Uvula midline. Moist mucous membranes. No trismus noted. No drooling noted. No muffled voice noted. Neck: Normal inspection. Neck supple. FROM. No adenopathy. Thyroid Normal. No meningeal signs. No neck mass noted. CVS: Normal heart rate and rhythm. Heart sound normal. No murmurs noted. Pulses normal throughout. Respiratory: No respiratory distress. Painless inspiration. Breath sounds normal. No wheezes/rales/rhonchi noted. Chest nontender. No accessory muscle usage noted or decreased air movement noted. Abdomen: Soft and nontender. Bowel sounds normal in all 4 quadrants. No distention noted. No organomegaly noted. No visible injury noted. Back: No CVA tenderness. Full range of motion noted. Skin: Skin warm and dry. Normal skin color. Normal skin turgor. No rashes/lesions/lacerations noted. Patient has old self-injury hewitt to bilateral arms no new ones. Extremities: No lower extremity edema. Extremities exhibit normal range of motion. Extremities nontender. Neuro: Oriented X 3. No motor deficit. No sensory deficit. Reflexes normal. Psych: Appearance grossly normal, well-kept, mental status normal, speech and movement normal, speech clear, patient appears very sad and anxious along with depressed. Is cooperative. Normal thought process. Normal thought content. Normal good insight. Judgment good. Course Course Course Narrative: 17:50pm - 45-year-old female who is well known to this facility she has an extensive history of psychiatric problems including PTSD, borderline personality disorder, mood disorder, hyperlipidemia, GERD, multiple prior overdoses presenting to the ED via EMS from her intermediate with complaints of increased anxiety/depression with auditory hallucinations telling her to cut her throat and her bilateral arms with SI and that would be her plan. She denies any HI. She reports that she has had hallucinations in the past although not this specific were it tells her to cut her throat and her bilateral arms. She reports she is taking her medication as prescribed. She denies any other symptoms complaints or concerns at this time. She denies any drug or alcohol usage. She denies recent travel or sick contacts. Plan: Labs, drug of abuse screen, EKG for medical clearance and re-evaluate. Reevaluation(s) Reevaluation #1: - labs return and sodium 134 otherwise all other labs are within normal limits. UA within normal limits no evidence of UTI. Patient positive for fentanyl negative for all other drugs. Negative for EtOH. - therefore at this time patient is placed in physician observation and she is medically cleared. She remains alert and oriented x3. Not in any acute distress. No focal neuro deficits are noted. Lungs clear to auscultation. CV RRR. Normal steady gait. Will continue to monitor patient is evaluated by N. Time: 19:01 [facility] - Psych Medical Records Attestation: I reviewed the patient's medical records. Lab Data Attestation: I reviewed the patient's lab results. Result diagrams: 08/10/21 18:35 08/10/21 18:35 Labs: Lab Results 08/10/21 08/10/21 08/10/21 Range/Units 18:17 18:17 18:35 WBC 9.2 (4.8-10.8) X10*3/uL RBC 4.09 L (4.20-5.50) X10*6/uL Hgb 12.6 (12.0-16.0) g/dl Hct 36.9 L (37-47) % MCV 90.2 (80-98) fL MCH 30.8 (27.0-33.0) pg MCHC 34.1 (31.0-35.0) g/dl RDW 12.0 (11.0-16.0) % Plt Count 286 (160-400) X10*3/uL MPV 9.4 (9.4-12.3) fL Immature Gran % (Auto) 0.4 (0.0-0.4) % Neut % (Auto) 70.1 (45-73) % Lymph % (Auto) 19.3 L (20-40) % [place] % (Auto) 7.7 (2-11) % Eos % (Auto) 2.2 (0-4) % Baso % (Auto) 0.3 (0-2) % Lymph # (Auto) 1.8 (1.2-4.9) X10*3/uL [place] # (Auto) 0.7 (0.1-1.2) X10*3/uL Eos # (Auto) 0.2 (0.0-0.4) X10*3/uL Baso # (Auto) 0.0 (0.0-0.2) X10*3/uL Abs Immat Gran (auto) 0.04 H (0.00-0.03) X10*3/uL Absolute Neuts (auto) 6.4 (2.0-8.3) X10*3/uL Absolute Nucleated RBC 0.000 (0.0-0.012) X10*3/uL Nucleated RBC % (auto) 0.0 (0.0-0.2) /100WBC Sodium (135-145) mmol/L Potassium (3.3-5.1) mmol/L Chloride (96-108) mmol/L Carbon Dioxide (22-29) mmol/L Anion Gap (12-20) BUN (9-16) mg/dL Creatinine (0.5-1.4) mg/dL Estim Creat Clear Calc Estimated GFR Random Glucose (60-115) mg/dL Calcium (8.4-10.2) mg/dL Magnesium (1.6-2.6) mg/dL Total Bilirubin (0.0-1.0) mg/dL AST (5-31) U/L ALT (0-31) U/L Alkaline Phosphatase (39-117) U/L Total Protein (6.5-8.0) g/dL Albumin (3.5-5.0) g/dL Lipase (8-78) U/L Urine Color YELLOW Urine Appearance CLEAR Urine pH 6.0 (5.0-8.0) Ur Specific [place] 1.010 (1.005-1.025) Urine Protein NEG (NEG-TRACE) MG/DL Urine Glucose (UA) NEG (NEG) MG/DL Urine Ketones NEG (NEG) MG/DL Urine Blood NEG (NEG) Urine Nitrite NEG (NEG) Ur Leukocyte Esterase NEG (NEG) Urine Opiates Screen Not Detected (Not Detect) Urine Fentanyl Screen POSITIVE H (Not Detect) Ur Barbiturates Screen Not Detected (Not Detect) Ur Phencyclidine Scrn Not Detected (Not Detect) Ur Amphetamines Screen Not Detected (Not Detect) U Benzodiazepines Scrn Not Detected (Not Detect) Urine Cocaine Screen Not Detected (Not Detect) U Marijuana (THC) Screen Not Detected (Not Detect) Ethyl Alcohol mg/dL 08/10/21 08/10/21 Range/Units 18:35 18:35 WBC (4.8-10.8) X10*3/uL RBC (4.20-5.50) X10*6/uL Hgb (12.0-16.0) g/dl Hct (37-47) % MCV (80-98) fL MCH (27.0-33.0) pg MCHC (31.0-35.0) g/dl RDW (11.0-16.0) % Plt Count (160-400) X10*3/uL MPV (9.4-12.3) fL Immature Gran % (Auto) (0.0-0.4) % Neut % (Auto) (45-73) % Lymph % (Auto) (20-40) % [place] % (Auto) (2-11) % Eos % (Auto) (0-4) % Baso % (Auto) (0-2) % Lymph # (Auto) (1.2-4.9) X10*3/uL [place] # (Auto) (0.1-1.2) X10*3/uL Eos # (Auto) (0.0-0.4) X10*3/uL Baso # (Auto) (0.0-0.2) X10*3/uL Abs Immat Gran (auto) (0.00-0.03) X10*3/uL Absolute Neuts (auto) (2.0-8.3) X10*3/uL Absolute Nucleated RBC (0.0-0.012) X10*3/uL Nucleated RBC % (auto) (0.0-0.2) /100WBC Sodium 134 L (135-145) mmol/L Potassium 3.6 (3.3-5.1) mmol/L Chloride 99 (96-108) mmol/L Carbon Dioxide 24 (22-29) mmol/L Anion Gap 15 (12-20) BUN 14 (9-16) mg/dL Creatinine 1.00 (0.5-1.4) mg/dL Estim Creat Clear Calc 91.0 Estimated GFR > 60 Random Glucose 133 H (60-115) mg/dL Calcium 8.7 (8.4-10.2) mg/dL Magnesium 1.7 (1.6-2.6) mg/dL Total Bilirubin 0.3 (0.0-1.0) mg/dL AST 14 D (5-31) U/L ALT 9 (0-31) U/L Alkaline Phosphatase 113 (39-117) U/L Total Protein 6.7 (6.5-8.0) g/dL Albumin 4.2 (3.5-5.0) g/dL Lipase 36 (8-78) U/L Urine Color Urine Appearance Urine pH (5.0-8.0) Ur Specific [place] (1.005-1.025) Urine Protein (NEG-TRACE) MG/DL Urine Glucose (UA) (NEG) MG/DL Urine Ketones (NEG) MG/DL Urine Blood (NEG) Urine Nitrite (NEG) Ur Leukocyte Esterase (NEG) Urine Opiates Screen (Not Detect) Urine Fentanyl Screen (Not Detect) Ur Barbiturates Screen (Not Detect) Ur Phencyclidine Scrn (Not Detect) Ur Amphetamines Screen (Not Detect) U Benzodiazepines Scrn (Not Detect) Urine Cocaine Screen (Not Detect) U Marijuana (THC) Screen (Not Detect) Ethyl Alcohol < 10 mg/dL Discharge Plan Discharge Clinical Impression: MDD (major depressive disorder), recurrent episode, severe, Borderline personality disorder, Suicidal ideation, Depression, Acute anxiety Patient Disposition: Still a Patient Prescriptions: No Action trazodone 150 mg tablet 150 mg PO BEDTIME RF: 0 polyethylene glycol 3350 [Miralax] 17 gram Powder In Packet 17 g PO DAILY PRN (Reason: Constipation) RF: 0 metformin 500 mg tablet 1 tab PO BID RF: 0 atorvastatin 10 mg tablet 1 tab PO DAILY RF: 0 pantoprazole 40 mg tablet,delayed release (DR/EC) 1 tab PO BID RF: 0 verapamil 240 mg tablet extended release 1 tab PO BEDTIME RF: 0 montelukast 10 mg tablet 1 tab PO BEDTIME RF: 0 lisinopril 5 mg tablet 1 tab PO DAILY RF: 0 ferrous sulfate 325 mg (65 mg iron) tablet,delayed release (DR/EC) 1 tab PO DAILY RF: 0 Flovent HFA 110 mcg/actuation HFA aerosol inhaler 2 puff inhalation BID RF: 0 norethindrone (contraceptive) [Deblitane] 0.35 mg Tablet 0.35 mg PO DAILY RF: 0 albuterol sulfate [Ventolin HFA] 90 mcg/actuation HFA aerosol inhaler 2 puff inhalation Q4H PRN (Reason: Shortness Of Breath) RF: 0 clonidine HCl 0.1 mg Tablet 0.05 mg PO BID@0830,1430 30 Days Qty: 30 RF: 0 prazosin 1 mg Capsule 2 mg PO BEDTIME 30 Days Qty: 60 RF: 0 benztropine 0.5 mg Tablet 0.5 mg PO BID PRN (Reason: EPS) 30 Days Qty: 60 RF: 0 fluoxetine 20 mg Capsule 40 mg PO DAILY 30 Days Qty: 60 RF: 0 hydroxyzine HCl 50 mg Tablet 50 mg PO QID PRN (Reason: Anxiety) 30 Days Qty: 120 RF: 0 chlorpromazine 50 mg Tablet 50 mg PO QID PRN (Reason: psychosis) 30 Days Qty: 120 RF: 0 nicotine 21 mg/24 hr Patch 24 Hour 21 mg transdermal DAILY PRN (Reason: smoking cessation) 28 Days Qty: 28 RF: 0
[2021-08-10] MEDS: chlorproMAZINE HCl 25 MG TABLET PO (18:02)
[2021-08-10 18:23] LABS: Appearance Urine CLEAR; Color Urine YELLOW; Glucose Urine UA NEG (NEG); Leukocyte Esterase Urine NEG (NEG); Nitrite Urine NEG (NEG); Urine Blood NEG (NEG); Urine Ketones NEG (NEG); Urine Protein NEG (NEG-TRACE)
[2021-08-10 18:37] LABS: Amphetamine Screen Urine Not Detected (Not Detect); Barbiturates, Urine Not Detected (Not Detect); Benzodiazepines Screen Urine Not Detected (Not Detect); Cannabinoid Screen Urine Not Detected (Not Detect); Cocaine Screen Urine Not Detected (Not Detect); Opiate Screen Urine Not Detected (Not Detect); Phencyclidine Screen Urine Not Detected (Not Detect)
[2021-08-10 18:43] LABS: Basophils Percent Auto 0.3 % (0-2); Eosinophils Absolute Auto 0.2 X10*3/uL (0.0-0.4); Eosinophils Percent Auto 2.2 % (0-4); Hematocrit 36.9 % (37-47); Hemoglobin 12.6 g/dl (12.0-16.0); Imm Gran Abs Auto 0.04 X10*3/uL (0.00-0.03); Imm Gran Pct Auto 0.4 % (0.0-0.4); Lymphocytes Absolute Auto 1.8 X10*3/uL (1.2-4.9); Lymphocytes Percent Auto 19.3 % (20-40); MANUAL DIFF FLAG NO; Mean Corpuscular HGB Conc 34.1 g/dl (31.0-35.0); Mean Corpuscular Hemoglobin 30.8 pg (27.0-33.0); Mean Corpuscular Volume 90.2 fL (80-98); Mean Platelet Volume 9.4 fL (9.4-12.3); Monocytes Absolute Auto 0.7 X10*3/uL (0.1-1.2); Monocytes Percent Auto 7.7 % (2-11); Neutrophils Absolute Auto 6.4 X10*3/uL (2.0-8.3); Neutrophils Percent Auto 70.1 % (45-73); Platelet Count 286 X10*3/uL (160-400); Red Blood Count 4.09 X10*6/uL (4.20-5.50); White Blood Count 9.2 X10*3/uL (4.8-10.8)
[2021-08-10 18:53] LABS: Ethanol < 10 mg/dL
[2021-08-10 18:58] LABS: Alanine Aminotransferase 9 U/L (0-31); Albumin Level 4.2 g/dL (3.5-5.0); Alkaline Phosphatase 113 U/L (39-117); Anion Gap 15 (12-20); Aspartate Amino Transferase 14 U/L (5-31); Bilirubin Total 0.3 mg/dL (0.0-1.0); Blood Urea Nitrogen 14 mg/dL (9-16); Calcium 8.7 mg/dL (8.4-10.2); Carbon Dioxide 24 mmol/L (22-29); Chloride 99 mmol/L (96-108); Estimated Glomerular Filt Rate > 60; Glucose Random 133 mg/dL (60-115); Lipase 36 U/L (8-78); Magnesium 1.7 mg/dL (1.6-2.6); Potassium 3.6 mmol/L (3.3-5.1); Sodium 134 mmol/L (135-145); Total Protein 6.7 g/dL (6.5-8.0)
[2021-08-10 19:02] LABS: HCG Quantitative < 2 mIU/mL
[2021-08-10 19:08] LABS: COVID-19 Test Negative (Negative)
[2021-08-10 20:32] VITALS: BP 144/92; PULSE 95; RESP 18; TEMP 36.6; O2SAT 97
[2021-08-10 20:37] VITALS: BP 144/96; PULSE 95
[2021-08-10] MEDS: Prazosin HCL 1 MG CAPSULE 2 MG PO (20:37)
[2021-08-10] MEDS: traZODone HCL 50 MG TABLET 150 MG PO (20:38)
[2021-08-10] MEDS: Montelukast Sodium 10 MG TABLET PO (20:38)
[2021-08-10] MEDS: Fluticasone Propionate 100 MCG BLST.W.DEV 2 PUFF INHALE (21:04)
[2021-08-10 21:05] VITALS: BP 144/92; PULSE 95
[2021-08-10] MEDS: VerapamiL HCL SR 240 MG TABLET.ER PO (21:05)
[2021-08-11 00:42] LABS: Fentanyl, urine POSITIVE (Not Detect)
[2021-08-11 01:42] VITALS: BP 105/73; PULSE 100; TEMP 36.7; O2SAT 97
--- NOTE | 2021-08-11 02:59 | PC.ADMIT ---
this is one of many hospitalizations for this 45 year old female. legal CV. Dx: PTSD, DD, BPD. patient was a referral to [facility]. patient was assessed by [facility] at halfway and then sent to ER for placement and medical clearance. nurse to nurse report done prior to admission. No N assessment available at this time. Call placed for assessment. no self harm or si attempt prior to assessment but endorses CAH, visual hallucinations of her father. pt with HX of trauma. medications reconciled in the ER. reports medication changes when last hospitalized on a few weeks ago. patient had arrived to early in the night after receiving her HS meds, tolerated brief assessment then requested to go to bed. Treatment plan issued reviewed. safety tool and legal will need to be completed when awake. patient denies drug use. ER reports that + fentanyl was a false positive. oriented to unit. no changes in medical status since last admission. placed on 15 minute checks. cooperative but tired.
--- NOTE | 2021-08-11 07:01 | PC.NURSE ---
[facility] assessment obtained
[2021-08-11 08:00] VITALS: BP 115/58; PULSE 89; RESP 18; TEMP 36.4; O2SAT 96
[2021-08-11] MEDS: Omeprazole 20 MG CAPSULE.DR PO ×2 (08:38→15:50)
[2021-08-11] MEDS: Atorvastatin Calcium 10 MG TABLET PO (08:38)
[2021-08-11] MEDS: metFORMIN HCl 500 MG TABLET PO ×2 (08:38→18:00)
[2021-08-11] MEDS: FLUoxetine HCl 20 MG CAPSULE 40 MG PO (08:38)
[2021-08-11] MEDS: Fluticasone Propionate 100 MCG BLST.W.DEV 2 PUFF INHALE ×2 (08:39→21:27)
[2021-08-11] MEDS: Nicotine 21 MG PATCH.TD24 TRANSDERMA (08:52)
[2021-08-11 10:38] VITALS: BP 115/58; PULSE 89
[2021-08-11] MEDS: lisinopriL 5 MG TABLET PO (10:38)
[2021-08-11 10:40] VITALS: BP 115/58; PULSE 89
[2021-08-11] MEDS: cloNIDine HCL 0.1 MG TABLET PO (10:40)
[2021-08-11] MEDS: chlorproMAZINE HCl 25 MG TABLET 50 MG PO ×2 (11:20→15:50)
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
[2021-08-11 21:28] VITALS: BP 115/81; PULSE 105
[2021-08-11] MEDS: VerapamiL HCL SR 240 MG TABLET.ER PO (21:28)
[2021-08-11] MEDS: Montelukast Sodium 10 MG TABLET PO (21:28)
[2021-08-11] MEDS: Prazosin HCL 1 MG CAPSULE 2 MG PO (21:28)
[2021-08-11] MEDS: traZODone HCL 50 MG TABLET 150 MG PO (21:28)
[2021-08-11 21:32] VITALS: BP 115/81; PULSE 15; TEMP 36.6; O2SAT 97
[2021-08-11] MEDS: Nystatin Cream 15 GM TUBE 1 APPL TOPICAL (21:40)
[2021-08-12 03:28] LABS: Glucose, Whole Blood 126 mg/dL (60-115)
[2021-08-12 08:10] VITALS: BP 149/86; PULSE 105
[2021-08-12] MEDS: Omeprazole 20 MG CAPSULE.DR PO ×2 (08:10→17:08)
[2021-08-12] MEDS: cloNIDine HCL 0.1 MG TABLET PO ×2 (08:10→14:31)
[2021-08-12] MEDS: lisinopriL 5 MG TABLET PO (08:10)
[2021-08-12] MEDS: FLUoxetine HCl 20 MG CAPSULE 40 MG PO (08:10)
[2021-08-12] MEDS: metFORMIN HCl 500 MG TABLET PO ×2 (08:10→17:09)
[2021-08-12] MEDS: Atorvastatin Calcium 10 MG TABLET PO (08:10)
[2021-08-12] MEDS: polyethylene glycoL 3350 17 GM POWD.PACK PO (08:11)
[2021-08-12] MEDS: chlorproMAZINE HCl 25 MG TABLET 50 MG PO ×6 (08:15→21:10)
[2021-08-12] MEDS: Fluticasone Propionate 100 MCG BLST.W.DEV 2 PUFF INHALE ×2 (08:18→21:11)
[2021-08-12] MEDS: Nystatin Cream 15 GM TUBE 1 APPL TOPICAL ×2 (08:25→21:11)
[2021-08-12 08:43] VITALS: BP 149/86; PULSE 105; TEMP 36.5
[2021-08-12] MEDS: Nicotine 21 MG PATCH.TD24 TRANSDERMA (08:55)
[2021-08-12 09:04] LABS: Glucose, Whole Blood 153 mg/dL (60-115)
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
[2021-08-12] MEDS: hydrOXYzine HCL 50 MG TABLET PO (14:25)
[2021-08-12 14:31] VITALS: BP 108/90; PULSE 99
[2021-08-12] MEDS: Acetaminophen 325 MG TABLET 650 MG PO (20:20)
[2021-08-12 21:10] VITALS: BP 123/73; PULSE 86
[2021-08-12] MEDS: Montelukast Sodium 10 MG TABLET PO (21:10)
[2021-08-12] MEDS: VerapamiL HCL SR 240 MG TABLET.ER PO (21:10)
[2021-08-12] MEDS: traZODone HCL 50 MG TABLET 150 MG PO (21:10)
[2021-08-12 21:11] VITALS: BP 123/73; PULSE 86
[2021-08-12] MEDS: Prazosin HCL 1 MG CAPSULE 2 MG PO (21:11)
[2021-08-12 21:13] VITALS: TEMP 36.4; O2SAT 97
[2021-08-13] MEDS: chlorproMAZINE HCl 25 MG TABLET 50 MG PO ×6 (06:22→20:27)
[2021-08-13] MEDS: Omeprazole 20 MG CAPSULE.DR PO ×2 (06:22→16:30)
[2021-08-13 06:32] LABS: Glucose, Whole Blood 107 mg/dL (60-115)
[2021-08-13] MEDS: Fluticasone Propionate 100 MCG BLST.W.DEV 2 PUFF INHALE ×2 (08:20→20:27)
[2021-08-13] MEDS: polyethylene glycoL 3350 17 GM POWD.PACK PO (08:20)
[2021-08-13] MEDS: Nicotine 21 MG PATCH.TD24 TRANSDERMA (08:20)
[2021-08-13 08:22] VITALS: BP 123/73; PULSE 86
[2021-08-13] MEDS: Atorvastatin Calcium 10 MG TABLET PO (08:22)
[2021-08-13] MEDS: lisinopriL 5 MG TABLET PO (08:22)
[2021-08-13] MEDS: cloNIDine HCL 0.1 MG TABLET PO ×2 (08:22→13:21)
[2021-08-13] MEDS: FLUoxetine HCl 20 MG CAPSULE 40 MG PO (08:22)
[2021-08-13] MEDS: metFORMIN HCl 500 MG TABLET PO ×2 (08:22→16:30)
[2021-08-13 08:34] VITALS: BP 136/70; PULSE 105; RESP 16; TEMP 36.5; O2SAT 97
[2021-08-13] MEDS: Nystatin Cream 15 GM TUBE 1 APPL TOPICAL ×2 (08:49→20:27)
[2021-08-13 13:21] VITALS: BP 103/61; PULSE 84
--- NOTE | 2021-08-13 15:38 | P.PNPSI_ITS ---
Subjective Subjective Date of Service: 08/13/21 Reason For Visit: psychosis Interim History: pt reports she had a difficult day yesterday due to the code in the morning but a better night, which is the opposite of usual. feeling fewer symptoms today - CAH are still there, but improved. per staff, reporting dep/anx. looking for 1:1 time with staff. reporting AH, SI to strangle self. had PRN thorazine in addition to scheduled, to good effect. went to bed at 1030, slept through the night. Mental Status Exam Mental Status Exam Narrative: disheveled, poorly groomed. no PMA/PMR. cooperative with interview. speech soft, nml rate, amount, latency. decreased prosody. thoughts linear and logical. affect flexible, normo-intense, non-labile. mood depressed and anxious. CAH to kill herself remain, but attenuated. no SI/HI/VH expressed. Diagnostics Vital Signs (24Hr): Vital Signs - 24 hr 08/12/21 21:10 08/12/21 21:11 08/12/21 21:13 Temperature 97.6 F Pulse Rate 86 86 Respiratory Rate Blood Pressure 123/73 123/73 Pulse Oximetry 97 08/13/21 08:22 08/13/21 08:34 08/13/21 13:21 Temperature 97.7 F Pulse Rate 86 105 H 84 Respiratory Rate 16 Blood Pressure 123/73 136/70 103/61 Pulse Oximetry 97 Body Mass Index 46.8 Labs Results: 08/10/21 18:35 08/10/21 18:35 Labs: Laboratory Results - last 48 hr 08/11/21 08/12/21 08/13/21 16:26 08:57 06:27 POC Glucose 126 H 153 H 107 Medications Medications Current Medications Acetaminophen (Acetaminophen 325 Mg Tablet) 650 mg PO Q6H PRN PRN Reason: Headache/Pain Mild Scale (1-3) Last Admin: 08/12/21 20:20 Dose: 650 mg Documented by: Al Hydroxide/Mg Hydroxide (Magnesium Hydrox/Alum Hydrox 30 Ml Oral.Susp) 30 ml PO Q6H PRN PRN Reason: Heartburn/Nausea Albuterol Sulfate (Albuterol Sulfate 90 Mcg 8 Gm Inhaler) 2 puff INHALE Q4H PRN PRN Reason: Shortness Of Breath Atorvastatin Calcium (Atorvastatin Calcium 10 Mg Tablet) 10 mg PO DAILY [facility] Last Admin: 08/13/21 08:22 Dose: 10 mg Documented by: Benztropine Mesylate (Benztropine Mesylate 0.5 Mg Tablet) 0.5 mg PO BID PRN PRN Reason: EPS Chlorpromazine HCl (Chlorpromazine Hcl 25 Mg Tablet) 50 mg PO QID [facility] Last Admin: 08/13/21 13:21 Dose: 50 mg Documented by: Chlorpromazine HCl (Chlorpromazine Hcl 25 Mg Tablet) 50 mg PO Q4H PRN PRN Reason: agitation Last Admin: 08/13/21 11:35 Dose: 50 mg Documented by: Clonidine HCl (Clonidine Hcl 0.1 Mg Tablet) 0.1 mg PO BID@0830,1430 [facility]; Protocol Last Admin: 08/13/21 13:21 Dose: 0.1 mg Documented by: Fluoxetine HCl (Fluoxetine Hcl 20 Mg Capsule) 40 mg PO DAILY [facility] Last Admin: 08/13/21 08:22 Dose: 40 mg Documented by: Fluticasone Propionate (Fluticasone Propionate 100 Mcg Blst.W.Dev) 2 puff INHALE RBID [facility] Last Admin: 08/13/21 08:20 Dose: 2 puff Documented by: Hydroxyzine HCl (Hydroxyzine Hcl 50 Mg Tablet) 50 mg PO QID PRN PRN Reason: Anxiety Last Admin: 08/12/21 14:25 Dose: 50 mg Documented by: Lisinopril (Lisinopril 5 Mg Tablet) 5 mg PO DAILY [facility]; Protocol Last Admin: 08/13/21 08:22 Dose: 5 mg Documented by: Magnesium Hydroxide (Milk Of Magnesia 30 Ml Oral.Susp) 30 ml PO DAILY PRN PRN Reason: Constipation Metformin HCl (Metformin Hcl 500 Mg Tablet) 500 mg PO BIDWM [facility] Last Admin: 08/13/21 08:22 Dose: 500 mg Documented by: Montelukast Sodium (Montelukast Sodium 10 Mg Tablet) 10 mg PO BEDTIME [facility] Last Admin: 08/12/21 21:10 Dose: 10 mg Documented by: Nicotine (Nicotine 21 Mg Patch.Td24) 21 mg TRANSDERMA DAILY PRN PRN Reason: smoking cessation Last Admin: 08/13/21 08:20 Dose: 21 mg Documented by: Non-Formulary Medication (Ferrous Sulfate) 1 tab PO DAILY [facility] Last Admin: 08/13/21 08:50 Dose: Not Given Documented by: Nystatin (Nystatin Cream 15 Gm Tube) 1 appl TOPICAL BID [facility]; Protocol Stop: 08/18/21 12:00 Last Admin: 08/13/21 08:49 Dose: 1 appl Documented by: Omeprazole (Omeprazole 20 Mg Capsule.Dr) 20 mg PO BID@0630,1630 [facility] Last Admin: 08/13/21 06:22 Dose: 20 mg Documented by: Polyethylene Glycol (Polyethylene Glycol 3350 17 Gm Powd.Pack) 17 gm PO DAILY PRN PRN Reason: Constipation Last Admin: 08/13/21 08:20 Dose: 17 gm Documented by: Prazosin HCl (Prazosin Hcl 1 Mg Capsule) 2 mg PO BEDTIME [facility]; Protocol Last Admin: 08/12/21 21:11 Dose: 2 mg Documented by: Trazodone HCl (Trazodone Hcl 50 Mg Tablet) 150 mg PO BEDTIME [facility] Last Admin: 08/12/21 21:10 Dose: 150 mg Documented by: Verapamil HCl (Verapamil Hcl Sr 240 Mg Tablet.Er) 240 mg PO BEDTIME [facility]; Protocol Last Admin: 08/12/21 21:10 Dose: 240 mg Documented by: Allergies Allergies Allergy/AdvReac Type Severity Reaction Status Date / Time Fish Containing Products Allergy Severe ANAPHYLAXIS Verified 07/31/21 20:43 codeine [Codeine] Allergy Unknown RASH Verified 07/31/21 20:43 Penicillins Allergy Unknown RASH Verified 07/31/21 20:43 prednisone [Prednisone] Allergy Unknown RASH Verified 07/31/21 20:43 Sulfa (Sulfonamide Allergy Unknown RASH Verified 07/31/21 20:43 Antibiotics) [Sulfa (Sulfonamides)] azithromycin [AZITHROMYCIN] AdvReac Severe RASH Verified 07/31/21 20:43 nicotine AdvReac Unknown HEART Verified 07/31/21 20:43 PALPITATION TO NICOTINE GUM Seafood Allergy Severe ANAPHYLAXIS Uncoded 07/31/21 20:43 From Geodon Allergy Unknown DYSURIA, Uncoded 07/31/21 20:43 RASH Assessment & Plan Assessment & Plan (1) PTSD (post-traumatic stress disorder): Status: Chronic Code(s): F43.10 - Post-traumatic stress disorder, unspecified (2) MDD (major depressive disorder), recurrent episode, severe: Status: Acute Code(s): F33.2 - Major depressive disorder, recurrent severe without psychotic features (3) Borderline personality disorder: Status: Chronic Code(s): F60.3 - Borderline personality disorder Assessment and Plan: increased morning and evening clonidine dosing from 0.05 mg each to 0.1 mg each 08/11. scheduled thorazine 50 mg QID 08/12. no changes 08/13. otherwise continued home medications. milieu therapy, containment, holding. I spent minutes with the patient and/or on the patient floor today, greater than?50% of which was spent counseling/coordinating care. Reason for contiued inpatient stay Substantial Risk for: harm to self
[2021-08-13 18:00] VITALS: BP 117/60; PULSE 85; RESP 16; TEMP 36.4; O2SAT 97
[2021-08-13 20:26] VITALS: BP 117/60; PULSE 85
[2021-08-13] MEDS: VerapamiL HCL SR 240 MG TABLET.ER PO (20:26)
[2021-08-13] MEDS: Montelukast Sodium 10 MG TABLET PO (20:26)
[2021-08-13] MEDS: traZODone HCL 50 MG TABLET 150 MG PO (20:26)
[2021-08-13 20:27] VITALS: BP 117/60; PULSE 85
[2021-08-13] MEDS: Prazosin HCL 1 MG CAPSULE 2 MG PO (20:27)
[2021-08-14] MEDS: chlorproMAZINE HCl 25 MG TABLET 50 MG PO ×6 (04:36→20:48)
[2021-08-14 06:00] VITALS: BP 118/66; PULSE 84; RESP 16; TEMP 36.6; O2SAT 97
[2021-08-14 07:43] LABS: Glucose, Whole Blood 100 mg/dL (60-115)
[2021-08-14] MEDS: Omeprazole 20 MG CAPSULE.DR PO ×2 (07:47→17:01)
[2021-08-14] MEDS: Fluticasone Propionate 100 MCG BLST.W.DEV 2 PUFF INHALE ×2 (08:55→20:47)
[2021-08-14] MEDS: Nicotine 21 MG PATCH.TD24 TRANSDERMA (08:55)
[2021-08-14] MEDS: FLUoxetine HCl 20 MG CAPSULE 40 MG PO (08:56)
[2021-08-14 08:57] VITALS: BP 118/66; PULSE 84
[2021-08-14] MEDS: lisinopriL 5 MG TABLET PO (08:57)
[2021-08-14] MEDS: Atorvastatin Calcium 10 MG TABLET PO (08:57)
[2021-08-14] MEDS: metFORMIN HCl 500 MG TABLET PO ×2 (08:57→17:01)
[2021-08-14] MEDS: cloNIDine HCL 0.1 MG TABLET PO ×2 (08:57→14:04)
[2021-08-14] MEDS: polyethylene glycoL 3350 17 GM POWD.PACK PO (09:04)
[2021-08-14] MEDS: Nystatin Cream 15 GM TUBE 1 APPL TOPICAL ×2 (12:34→20:53)
[2021-08-14 14:04] VITALS: BP 117/69; PULSE 85
[2021-08-14] MEDS: hydrOXYzine HCL 50 MG TABLET PO (14:04)
[2021-08-14 18:00] VITALS: BP 133/70; PULSE 78; RESP 16; TEMP 36.6; O2SAT 98
--- NOTE | 2021-08-14 18:23 | HO.PSYCHPN ---
Subjective Subjective Date of Service: 08/14/21 Reason For Visit: psychosis Interim History: pt reports she is feeling reasonably well today at the start of the interview. toward the end of the interview expressed AH worsening a bit and stated she planned to get a PRN of thorazine at that moment. she is coping by staying busy and feels that has been working reasonably well for her, as well as the scheduled thorazine. per staff, doing well, showered. using distraction techniques. engaged in some light head-banging eves when her roommate was experiencing some distress. slept 9 pm to 0430 am, then back to bed until 8. Mental Status Exam Mental Status Exam Narrative: disheveled, poorly groomed. no PMA/PMR. cooperative with interview. speech soft, nml rate, amount, latency. decreased prosody. thoughts linear and logical. affect flexible, normo-intense, non-labile. mood depressed and anxious. AH, but attenuated. no SI/HI/VH expressed. Diagnostics Vital Signs (24Hr): Vital Signs - 24 hr 08/13/21 20:26 08/13/21 20:27 08/14/21 06:00 Temperature 97.9 F Pulse Rate 85 85 84 Respiratory Rate 16 Blood Pressure 117/60 117/60 118/66 Pulse Oximetry 97 08/14/21 08:57 08/14/21 14:04 Temperature Pulse Rate 84 85 Respiratory Rate Blood Pressure 118/66 117/69 Pulse Oximetry Body Mass Index 46.8 Labs Results: 08/10/21 18:35 08/10/21 18:35 Labs: Laboratory Results - last 48 hr 08/13/21 08/14/21 06:27 07:39 POC Glucose 107 100 Medications Medications Current Medications Acetaminophen (Acetaminophen 325 Mg Tablet) 650 mg PO Q6H PRN PRN Reason: Headache/Pain Mild Scale (1-3) Last Admin: 08/12/21 20:20 Dose: 650 mg Documented by: Al Hydroxide/Mg Hydroxide (Magnesium Hydrox/Alum Hydrox 30 Ml Oral.Susp) 30 ml PO Q6H PRN PRN Reason: Heartburn/Nausea Albuterol Sulfate (Albuterol Sulfate 90 Mcg 8 Gm Inhaler) 2 puff INHALE Q4H PRN PRN Reason: Shortness Of Breath Atorvastatin Calcium (Atorvastatin Calcium 10 Mg Tablet) 10 mg PO DAILY [facility] Last Admin: 08/14/21 08:57 Dose: 10 mg Documented by: Benztropine Mesylate (Benztropine Mesylate 0.5 Mg Tablet) 0.5 mg PO BID PRN PRN Reason: EPS Chlorpromazine HCl (Chlorpromazine Hcl 25 Mg Tablet) 50 mg PO QID [facility] Last Admin: 08/14/21 17:01 Dose: 50 mg Documented by: Chlorpromazine HCl (Chlorpromazine Hcl 25 Mg Tablet) 50 mg PO Q4H PRN PRN Reason: agitation Last Admin: 08/14/21 14:03 Dose: 50 mg Documented by: Clonidine HCl (Clonidine Hcl 0.1 Mg Tablet) 0.1 mg PO BID@0830,1430 [facility]; Protocol Last Admin: 08/14/21 14:04 Dose: 0.1 mg Documented by: Fluoxetine HCl (Fluoxetine Hcl 20 Mg Capsule) 40 mg PO DAILY [facility] Last Admin: 08/14/21 08:56 Dose: 40 mg Documented by: Fluticasone Propionate (Fluticasone Propionate 100 Mcg Blst.W.Dev) 2 puff INHALE RBID [facility] Last Admin: 08/14/21 08:55 Dose: 2 puff Documented by: Hydroxyzine HCl (Hydroxyzine Hcl 50 Mg Tablet) 50 mg PO QID PRN PRN Reason: Anxiety Last Admin: 08/14/21 14:04 Dose: 50 mg Documented by: Lisinopril (Lisinopril 5 Mg Tablet) 5 mg PO DAILY [facility]; Protocol Last Admin: 08/14/21 08:57 Dose: 5 mg Documented by: Magnesium Hydroxide (Milk Of Magnesia 30 Ml Oral.Susp) 30 ml PO DAILY PRN PRN Reason: Constipation Metformin HCl (Metformin Hcl 500 Mg Tablet) 500 mg PO BIDWM [facility] Last Admin: 08/14/21 17:01 Dose: 500 mg Documented by: Montelukast Sodium (Montelukast Sodium 10 Mg Tablet) 10 mg PO BEDTIME [facility] Last Admin: 08/13/21 20:26 Dose: 10 mg Documented by: Nicotine (Nicotine 21 Mg Patch.Td24) 21 mg TRANSDERMA DAILY PRN PRN Reason: smoking cessation Last Admin: 08/14/21 08:55 Dose: 21 mg Documented by: Non-Formulary Medication (Ferrous Sulfate) 1 tab PO DAILY [facility] Last Admin: 08/14/21 10:03 Dose: Not Given Documented by: Nystatin (Nystatin Cream 15 Gm Tube) 1 appl TOPICAL BID [facility]; Protocol Stop: 08/18/21 12:00 Last Admin: 08/14/21 12:34 Dose: 1 appl Documented by: Omeprazole (Omeprazole 20 Mg Capsule.Dr) 20 mg PO BID@0630,1630 [facility] Last Admin: 08/14/21 17:01 Dose: 20 mg Documented by: Polyethylene Glycol (Polyethylene Glycol 3350 17 Gm Powd.Pack) 17 gm PO DAILY PRN PRN Reason: Constipation Last Admin: 08/14/21 09:04 Dose: 17 gm Documented by: Prazosin HCl (Prazosin Hcl 1 Mg Capsule) 3 mg PO BEDTIME [facility]; Protocol Trazodone HCl (Trazodone Hcl 50 Mg Tablet) 150 mg PO BEDTIME [facility] Last Admin: 08/13/21 20:26 Dose: 150 mg Documented by: Verapamil HCl (Verapamil Hcl Sr 240 Mg Tablet.Er) 240 mg PO BEDTIME [facility]; Protocol Last Admin: 08/13/21 20:26 Dose: 240 mg Documented by: Allergies Allergies Allergy/AdvReac Type Severity Reaction Status Date / Time Fish Containing Products Allergy Severe ANAPHYLAXIS Verified 07/31/21 20:43 codeine [Codeine] Allergy Unknown RASH Verified 07/31/21 20:43 Penicillins Allergy Unknown RASH Verified 07/31/21 20:43 prednisone [Prednisone] Allergy Unknown RASH Verified 07/31/21 20:43 Sulfa (Sulfonamide Allergy Unknown RASH Verified 07/31/21 20:43 Antibiotics) [Sulfa (Sulfonamides)] azithromycin [AZITHROMYCIN] AdvReac Severe RASH Verified 07/31/21 20:43 nicotine AdvReac Unknown HEART Verified 07/31/21 20:43 PALPITATION TO NICOTINE GUM Seafood Allergy Severe ANAPHYLAXIS Uncoded 07/31/21 20:43 From Geodon Allergy Unknown DYSURIA, Uncoded 07/31/21 20:43 RASH Assessment & Plan Assessment & Plan (1) PTSD (post-traumatic stress disorder): Status: Chronic Code(s): F43.10 - Post-traumatic stress disorder, unspecified (2) MDD (major depressive disorder), recurrent episode, severe: Status: Acute Code(s): F33.2 - Major depressive disorder, recurrent severe without psychotic features (3) Borderline personality disorder: Status: Chronic Code(s): F60.3 - Borderline personality disorder Assessment and Plan: increased morning and evening clonidine dosing from 0.05 mg each to 0.1 mg each 08/11. scheduled thorazine 50 mg QID 08/12. no changes 08/13 or 08/14. otherwise continued home medications. milieu therapy, containment, holding. I spent minutes with the patient and/or on the patient floor today, greater than?50% of which was spent counseling/coordinating care. Reason for contiued inpatient stay Substantial Risk for: harm to self
[2021-08-14 20:47] VITALS: BP 116/70; PULSE 80
[2021-08-14] MEDS: Prazosin HCL 1 MG CAPSULE 3 MG PO (20:47)
[2021-08-14] MEDS: traZODone HCL 50 MG TABLET 150 MG PO (20:48)
[2021-08-14] MEDS: Montelukast Sodium 10 MG TABLET PO (20:48)
[2021-08-14 20:49] VITALS: BP 116/74; PULSE 80
[2021-08-14] MEDS: VerapamiL HCL SR 240 MG TABLET.ER PO (20:49)
[2021-08-15] MEDS: Omeprazole 20 MG CAPSULE.DR PO (06:09)
[2021-08-15 06:18] LABS: Glucose, Whole Blood 122 mg/dL (60-115)
[2021-08-15 08:04] VITALS: BP 128/69; PULSE 85; RESP 17; TEMP 36.4; O2SAT 96
[2021-08-15] MEDS: Fluticasone Propionate 100 MCG BLST.W.DEV 2 PUFF INHALE (08:10)
[2021-08-15] MEDS: Nystatin Cream 15 GM TUBE 1 APPL TOPICAL (08:10)
[2021-08-15] MEDS: chlorproMAZINE HCl 25 MG TABLET 50 MG PO ×2 (08:11→13:21)
[2021-08-15] MEDS: FLUoxetine HCl 20 MG CAPSULE 40 MG PO (08:11)
[2021-08-15] MEDS: Atorvastatin Calcium 10 MG TABLET PO (08:12)
[2021-08-15] MEDS: metFORMIN HCl 500 MG TABLET PO (08:12)
[2021-08-15 08:13] VITALS: BP 128/69; PULSE 85
[2021-08-15] MEDS: cloNIDine HCL 0.1 MG TABLET PO ×2 (08:13→13:44)
[2021-08-15] MEDS: lisinopriL 5 MG TABLET PO (08:13)
[2021-08-15] MEDS: polyethylene glycoL 3350 17 GM POWD.PACK PO (08:19)
[2021-08-15] MEDS: Nicotine 21 MG PATCH.TD24 TRANSDERMA (08:19)
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
[2021-08-15 13:43] VITALS: BP 119/77; PULSE 81
[2021-08-15 13:44] VITALS: BP 119/77; PULSE 81
--- NOTE | 2021-08-15 14:25 | PC.NURSE ---
Patient is pleasant and cooperative upon approach. Patient is alert and orineted x3. Patient's speech is coherent and appropriate. Patient reports that sleep and appetite are good. Vital signs are within normal limits. Patient verbally understood discharge and was in agreement with discharge and discharge teaching. Patient denies SI/HI. Patient states I am ready to go , and patient is observed smiling and clapping after being told she is being discharged. Patient denied medical complaints. Patient stated i feel safe to go home and be discharged .
== END 2021-08-15 14:10 | disposition home or self-care (01) | DRG 885 ==
LOC: HO.ED 08-11 01:06 → HO.PADLT16 08-11 01:26
PROVIDERS: Physician Assistant Medical; Admitting Provider Psychiatry & Neurology Psychiatry; Emergency Provider Internal Medicine; PCP Nurse Practitioner Family; Visit Provider Psychiatry & Neurology Psychiatry
DX: F33.2 Major depressive disorder, recurrent severe without psychotic features (principal); R45.851 Suicidal ideations; K21.9 Gastro-esophageal reflux disease without esophagitis; E78.5 Hyperlipidemia, unspecified; F60.3 Borderline personality disorder; F43.10 Post-traumatic stress disorder, unspecified; F17.210 Nicotine dependence, cigarettes, uncomplicated; Z71.6 Tobacco abuse counseling; Z20.822 Contact with and (suspected) exposure to COVID-19; Z88.0 Allergy status to penicillin; Z88.2 Allergy status to sulfonamides; Z88.5 Allergy status to narcotic agent; Z79.84 Long term (current) use of oral hypoglycemic drugs; Z79.899 Other long term (current) drug therapy
CPT/HCPCS: 36415; 80053; 80307; 81003; 82077; 82947; 83690; 83735; 84702; 85025; 87635; 93005; 99285

== ENCOUNTER 2021-08-18 18:09 | Emergency (ER) | payer MEDICARE, MEDICAID, SELFPAY ==
[2021-08-18 18:27] VITALS: BP 115/70; BP 160/72; PULSE 103; PULSE 85; RESP 18; TEMP 37.2; O2SAT 98; O2SAT 99; BMI 37.4
--- NOTE | 2021-08-18 18:50 | ECG_ITS ---
Test Reason : med clearance Blood Pressure : / mmHG Vent. Rate : 072 BPM Atrial Rate : 072 BPM P-R Int : 202 ms QRS Dur : 094 ms QT Int : 420 ms P-R-T Axes : 020 039 047 degrees QTc Int : 459 ms Normal sinus rhythm Nonspecific ST abnormality Inferior leads ST less elevated in Inferior leads Referred By: Jaimie Coates Electronically Signed By:JAMAL RODRIGUEZ MD
[2021-08-18 19:07] LABS: Amphetamine Screen Urine Not Detected (Not Detect); Barbiturates, Urine Not Detected (Not Detect); Benzodiazepines Screen Urine Not Detected (Not Detect); Cannabinoid Screen Urine Not Detected (Not Detect); Cocaine Screen Urine Not Detected (Not Detect); Fentanyl, urine POSITIVE (Not Detect); Opiate Screen Urine Not Detected (Not Detect); Phencyclidine Screen Urine Not Detected (Not Detect)
[2021-08-18 19:09] LABS: COVID-19 Test Negative (Negative)
[2021-08-18 21:43] VITALS: BP 102/63; PULSE 69; RESP 16; TEMP 36.6; O2SAT 98
[2021-08-18] MEDS: chlorproMAZINE HCl 25 MG TABLET 50 MG PO (21:43)
[2021-08-18] MEDS: Prazosin HCL 1 MG CAPSULE 3 MG PO (21:43)
[2021-08-18] MEDS: Omeprazole 20 MG CAPSULE.DR PO (21:43)
[2021-08-18] MEDS: Montelukast Sodium 10 MG TABLET PO (21:43)
[2021-08-18] MEDS: metFORMIN HCl 500 MG TABLET PO (21:43)
[2021-08-18] MEDS: traZODone HCL 50 MG TABLET 150 MG PO (21:43)
[2021-08-18 21:44] VITALS: BP 102/63; PULSE 69
[2021-08-18] MEDS: VerapamiL HCL SR 240 MG TABLET.ER PO (21:44)
--- NOTE | 2021-08-18 22:12 | MHC.CARE ---
Pt is well known to [facility], CARE team and [facility]. T/W met with pt who shares that she was in touch with crisis today which was helpful and had her TMS apt today w/ Dr. Sy. She reports she had been okay all day however became scared and called 911 after experiencing auditory hallucinations of a different voice than she historically does. Pt was sectioned by [employer] and transported by EMS. Pt states at the moment they are not telling her to hurt herself however reports feeling unsafe with this new voice. Pt reports she believes this is caused by TMS. Pt will be evaluated by [facility] on the overnight, if pt remains the night CARE team should check in with her tomorrow and speak with prop making supervisor or psychiatry to determine if they support her d/c.
[2021-08-18 22:45] LABS: MANUAL DIFF FLAG NO
[2021-08-18 22:53] LABS: Basophils Percent Auto 0.5 % (0-2); Eosinophils Absolute Auto 0.2 X10*3/uL (0.0-0.4); Eosinophils Percent Auto 2.6 % (0-4); Hematocrit 36.8 % (37.0-47.0); Hemoglobin 12.5 g/dl (12.0-16.0); Imm Gran Abs Auto 0.02 X10*3/uL (0.00-0.03); Imm Gran Pct Auto 0.2 % (0.0-0.4); Lymphocytes Absolute Auto 2.1 X10*3/uL (1.2-4.9); Lymphocytes Percent Auto 26.2 % (20-40); Mean Corpuscular Hemoglobin 30.8 pg (27.0-33.0); Mean Corpuscular Volume 90.6 fL (80.0-98.0); Mean Platelet Volume 9.8 fL (9.4-12.3); Monocytes Absolute Auto 0.6 X10*3/uL (0.1-1.2); Monocytes Percent Auto 7.9 % (2-11); Neutrophils Absolute Auto 5.1 x10*3/uL (2.0-8.3); Neutrophils Percent Auto 62.6 % (45-73); Platelet Count 251 X10*3/uL (160-400); Red Blood Count 4.06 X10*6/uL (4.20-5.50); Red Cell Distribution Width 11.9 % (11.0-16.0); White Blood Count 8.1 X10*3/uL (4.8-10.8)
[2021-08-18 22:57] LABS: Ethanol < 10 mg/dL
[2021-08-18 23:00] LABS: Alanine Aminotransferase 15 U/L (0-31); Albumin Level 4.1 g/dL (3.5-5.0); Alkaline Phosphatase 87 U/L (39-117); Anion Gap 13 (12-20); Aspartate Amino Transferase 13 U/L (5-31); Bilirubin Total 0.3 mg/dL (0.0-1.0); Blood Urea Nitrogen 20 mg/dL (9-16); Calcium 8.5 mg/dL (8.4-10.2); Carbon Dioxide 25 mmol/L (22-29); Chloride 102 mmol/L (96-108); Creatinine Clr Calc Pharmacy 89.1; Estimated Glomerular Filt Rate > 60; Glucose Random 109 mg/dL (60-115); Potassium 3.4 mmol/L (3.3-5.1); Sodium 137 mmol/L (135-145); Total Protein 6.3 g/dL (6.5-8.0)
--- NOTE | 2021-08-18 23:23 | ED.PSYCH ---
HPI - Psych General Chief Complaint: Psychiatric Symptoms Stated Complaint: crisis Time Seen by Provider: 08/18/21 18:36 Source: patient History of Present Illness HPI Narrative: 45-year-old female with a past medical history of PTSD, borderline personality disorder, mood disorder, HLD, GERD, multiple prior overdoses, presenting to the ED reporting auditory hallucinations/command hallucinations of a new male voice telling her to self harm herself. Admits today in hearing this voice x1 week. Reports voice is telling her to hang herself with her bed sheet/cut herself. Denies attempt at home, HI, EtOH or illicit substances, fever, chills, cough, CP/SOB, abdominal pain, nausea/vomiting MD complaint: suicidal ideation and hallucinations Related Data Home Medications Medication Instructions Recorded Confirmed trazodone 150 mg tablet 150 mg PO BEDTIME 01/27/21 08/18/21 polyethylene glycol 3350 17 gram 17 g PO DAILY PRN 02/12/21 08/18/21 oral powder packet (Miralax) atorvastatin 10 mg tablet 1 tab PO DAILY 05/29/21 08/18/21 ferrous sulfate 325 mg (65 mg 1 tab PO DAILY 05/29/21 08/18/21 iron) tablet,delayed release fluticasone propionate 110 2 puff INHALATION BID 05/29/21 08/18/21 mcg/actuation HFA aerosol inhaler (Flovent HFA) lisinopril 5 mg tablet 1 tab PO DAILY 05/29/21 08/18/21 metformin 500 mg tablet 1 tab PO BID 05/29/21 08/18/21 montelukast 10 mg tablet 1 tab PO BEDTIME 05/29/21 08/18/21 norethindrone (contraceptive) 0.35 0.35 mg PO DAILY 05/29/21 08/18/21 mg tablet (Deblitane) pantoprazole 40 mg tablet,delayed 1 tab PO BID 05/29/21 08/18/21 release verapamil 240 mg tablet,extended 1 tab PO BEDTIME 05/29/21 08/18/21 release albuterol sulfate 90 mcg/actuation 2 puff INHALATION Q4H PRN 06/15/21 08/18/21 aerosol inhaler (Ventolin HFA) Previous Rx's Medication Instructions Recorded benztropine 0.5 mg tablet 0.5 mg PO BID PRN 30 Days #60 tab 07/27/21 fluoxetine 20 mg capsule 40 mg PO DAILY 30 Days #60 cap 07/27/21 hydroxyzine HCl 50 mg tablet 50 mg PO QID PRN 30 Days #120 tab 07/27/21 nicotine 21 mg/24 hr daily 21 mg TRANSDERMAL DAILY PRN 28 07/27/21 transdermal patch Days #28 ea chlorpromazine 25 mg tablet 50 mg PO DAILY PRN 30 Days #30 tab 08/15/21 chlorpromazine 25 mg tablet 50 mg PO QID 30 Days #240 tab 08/15/21 clonidine HCl 0.1 mg tablet 0.1 mg PO BID@0830,1430 30 Days 08/15/21 #60 tab prazosin 1 mg capsule 3 mg PO BEDTIME 30 Days #90 cap 08/15/21 Allergies Allergy/AdvReac Type Severity Reaction Status Date / Time Fish Containing Products Allergy Severe ANAPHYLAXIS Verified 08/18/21 18:18 codeine [Codeine] Allergy Unknown RASH Verified 08/18/21 18:18 Penicillins Allergy Unknown RASH Verified 08/18/21 18:18 prednisone [Prednisone] Allergy Unknown RASH Verified 08/18/21 18:18 Sulfa (Sulfonamide Allergy Unknown RASH Verified 08/18/21 18:18 Antibiotics) [Sulfa (Sulfonamides)] azithromycin [AZITHROMYCIN] AdvReac Severe RASH Verified 08/18/21 18:18 nicotine AdvReac Unknown HEART Verified 08/18/21 18:18 PALPITATION TO NICOTINE GUM Seafood Allergy Severe ANAPHYLAXIS Uncoded 07/31/21 20:43 From Geodon Allergy Unknown DYSURIA, Uncoded 07/31/21 20:43 RASH Review of Systems Review of Systems: Constitutional: No Fever, No Chills, No Fatigue, No Malaise ENT/Mouth:No Ear Pain, No Nasal Congestion, No sore throat Eyes: No Eye Pain, No Swelling, No Redness Cardiovascular: No Chest Pain, No SOB Respiratory: No Cough, No Dyspnea Gastrointestinal: No Nausea, No Vomiting, No Diarrhea, No Constipation, No Abdominal pain Genitourinary: No Dysuria, No Urinary Frequency Musculoskeletal: No joint pain, No Myalgias, No Joint Swelling Skin: No Skin Lesions, No rash Neuro: No Weakness, No Headache Psych: No Anxiety/Panic, + Depression, No SI, No HI, +AH, No Social Issues Yes all other systems are reviewed and are negative PMFSH Past Medical History Attestation statement: The following information was validated with the patient. Medical History Bronchitis Diabetes type 2, controlled GERD (gastroesophageal reflux disease) Hyperlipidemia MDD (major depressive disorder), recurrent episode, severe Mood disorder Overdose PTSD (post-traumatic stress disorder) Social History Social History 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: Other 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 Other:: pt lives in [facility] with 3 other peers Housing: Other Housing Other:: [facility] Do you presently have visiting nurse or other home services: Yes ([facility]) Alcohol intake: never Patient Tobacco Use Status: Current everyday Tobacco user Tobacco use type: Cigarette Cigarette Packs Per Day: 1 Cigarettes Per Day: 20.0 Years Smoked: 20 e-Cigarette/Vaping Use: Never Used Second Hand Smoke Exposure: Yes Use of substances other than those prescribed or required for medical reasons: No Substance Use Type: Caffiene Advance Directives: No Advance Directives Information Provided: No Patient : No service: No Sexual orientation: Did not discuss. Physical Exam Vital Signs: Vital Signs: Last Vital Signs Temp 97.9 F 08/18/21 21:43 Pulse 69 08/18/21 21:44 Resp 16 08/18/21 21:43 BP 102/63 08/18/21 21:44 Pulse Ox 98 08/18/21 21:43 Body Mass Index 37.4 Const: General: cooperative, healthy appearing and no acute distress Orientation/consciousness: patient oriented x3 Limitations: no limitations HENMT: Head: Yes normal to inspection Ears: hearing grossly normal bilaterally General nose exam: Normal external nose present Face and sinus: Yes normal facial exam Eyes: General: appearance normal, both eyes and all related structures EOM: EOMs intact bilaterally Neck: Neck: Yes normal visual inspection and Yes no meningeal signs Resp: Effort & Inspection: normal respiratory effort Auscultation: clear to auscultation bilaterally, no rales, no rhonchi and no wheezes Cardio: Rate: regular rate Heart sounds: S1 normal heart sound present and S2 normal heart sound present GI: Inspection: Yes normal to inspection Palpation (GI): Soft to palpation, nontender, no guarding and not rigid Skin: Rashes: no rashes Wounds: no wounds Neuro: General: patient oriented x3, gait normal, tone normal, moves all extremities, no meningeal signs and CN's II-XI intact bilaterally Gait exam (Neuro): Normal gait present Extrem: General: Yes normal to inspection Psych: Speech and movement: Normal speech and movement present Affect: Sad affect present and Anxious affect present Attitude: cooperative Course Course Course Narrative: -labs unremarkable. Tox screen positive for fentanyl. Ethanol negative -patient is medically cleared for [facility] evaluation. -0200--ED care transferred to Dr. Ryan pending [facility] evaluation MDM - Psych MDM Narrative Medical decision making narrative: 45-year-old female with a past medical history of PTSD, borderline personality disorder, mood disorder, HLD, GERD, multiple prior overdoses, presenting to the ED reporting auditory hallucinations/command hallucinations of a new male voice telling her to self harm herself. On exam vital signs stable, NAD, concern for MDD/borderline personality disorder. Rule out organic causes of hallucinations Plan: EKG, labs, UA, TORRES, [facility]N consult Medical Records Attestation: I reviewed the patient's medical records. Lab Data Attestation: I reviewed the patient's lab results. Result diagrams: 08/18/21 22:38 08/18/21 22:38 Labs: Lab Results 08/18/21 08/18/21 08/18/21 Range/Units 18:40 18:41 22:38 WBC 8.1 (4.8-10.8) X10*3/uL RBC 4.06 L (4.20-5.50) X10*6/uL Hgb 12.5 (12.0-16.0) g/dl Hct 36.8 L (37.0-47.0) % MCV 90.6 (80.0-98.0) fL MCH 30.8 (27.0-33.0) pg MCHC 34.0 (31.0-35.0) g/dl RDW 11.9 (11.0-16.0) % Plt Count 251 (160-400) X10*3/uL MPV 9.8 (9.4-12.3) fL Immature Gran % (Auto) 0.2 (0.0-0.4) % Neut % (Auto) 62.6 (45-73) % Lymph % (Auto) 26.2 (20-40) % Colbert % (Auto) 7.9 (2-11) % Eos % (Auto) 2.6 (0-4) % Baso % (Auto) 0.5 (0-2) % Lymph # (Auto) 2.1 (1.2-4.9) X10*3/uL Colbert # (Auto) 0.6 (0.1-1.2) X10*3/uL Eos # (Auto) 0.2 (0.0-0.4) X10*3/uL Baso # (Auto) 0.0 (0.0-0.2) X10*3/uL Abs Immat Gran (auto) 0.02 (0.00-0.03) X10*3/uL Absolute Neuts (auto) 5.1 (2.0-8.3) x10*3/uL Absolute Nucleated RBC 0.000 (0.0-0.012) X10*3/uL Nucleated RBC % (auto) 0.0 (0.0-0.2) /100WBC Sodium (135-145) mmol/L Potassium (3.3-5.1) mmol/L Chloride (96-108) mmol/L Carbon Dioxide (22-29) mmol/L Anion Gap (12-20) BUN (9-16) mg/dL Creatinine (0.5-1.4) mg/dL Estim Creat Clear Calc Estimated GFR Random Glucose (60-115) mg/dL Calcium (8.4-10.2) mg/dL Total Bilirubin (0.0-1.0) mg/dL AST (5-31) U/L ALT (0-31) U/L Alkaline Phosphatase (39-117) U/L Total Protein (6.5-8.0) g/dL Albumin (3.5-5.0) g/dL Urine Opiates Screen Not Detected (Not Detect) Urine Fentanyl Screen POSITIVE H (Not Detect) Ur Barbiturates Screen Not Detected (Not Detect) Ur Phencyclidine Scrn Not Detected (Not Detect) Ur Amphetamines Screen Not Detected (Not Detect) U Benzodiazepines Scrn Not Detected (Not Detect) Urine Cocaine Screen Not Detected (Not Detect) U Marijuana (THC) Screen Not Detected (Not Detect) Ethyl Alcohol mg/dL COVID-19 (NICK) Negative (Negative) COVID-19 Clin Com See Note 08/18/21 08/18/21 Range/Units 22:38 22:38 WBC (4.8-10.8) X10*3/uL RBC (4.20-5.50) X10*6/uL Hgb (12.0-16.0) g/dl Hct (37.0-47.0) % MCV (80.0-98.0) fL MCH (27.0-33.0) pg MCHC (31.0-35.0) g/dl RDW (11.0-16.0) % Plt Count (160-400) X10*3/uL MPV (9.4-12.3) fL Immature Gran % (Auto) (0.0-0.4) % Neut % (Auto) (45-73) % Lymph % (Auto) (20-40) % Colbert % (Auto) (2-11) % Eos % (Auto) (0-4) % Baso % (Auto) (0-2) % Lymph # (Auto) (1.2-4.9) X10*3/uL Colbert # (Auto) (0.1-1.2) X10*3/uL Eos # (Auto) (0.0-0.4) X10*3/uL Baso # (Auto) (0.0-0.2) X10*3/uL Abs Immat Gran (auto) (0.00-0.03) X10*3/uL Absolute Neuts (auto) (2.0-8.3) x10*3/uL Absolute Nucleated RBC (0.0-0.012) X10*3/uL Nucleated RBC % (auto) (0.0-0.2) /100WBC Sodium 137 (135-145) mmol/L Potassium 3.4 (3.3-5.1) mmol/L Chloride 102 (96-108) mmol/L Carbon Dioxide 25 (22-29) mmol/L Anion Gap 13 (12-20) BUN 20 H (9-16) mg/dL Creatinine 0.93 (0.5-1.4) mg/dL Estim Creat Clear Calc 89.1 Estimated GFR > 60 Random Glucose 109 (60-115) mg/dL Calcium 8.5 (8.4-10.2) mg/dL Total Bilirubin 0.3 (0.0-1.0) mg/dL AST 13 (5-31) U/L ALT 15 (0-31) U/L Alkaline Phosphatase 87 D (39-117) U/L Total Protein 6.3 L (6.5-8.0) g/dL Albumin 4.1 (3.5-5.0) g/dL Urine Opiates Screen (Not Detect) Urine Fentanyl Screen (Not Detect) Ur Barbiturates Screen (Not Detect) Ur Phencyclidine Scrn (Not Detect) Ur Amphetamines Screen (Not Detect) U Benzodiazepines Scrn (Not Detect) Urine Cocaine Screen (Not Detect) U Marijuana (THC) Screen (Not Detect) Ethyl Alcohol < 10 mg/dL COVID-19 (NICK) (Negative) COVID-19 Clin Com Discharge Plan Discharge Clinical Impression: Borderline personality disorder, MDD (major depressive disorder), recurrent episode, severe Patient Disposition: Still a Patient Prescriptions: No Action trazodone 150 mg tablet 150 mg PO BEDTIME RF: 0 polyethylene glycol 3350 [Miralax] 17 gram Powder In Packet 17 g PO DAILY PRN (Reason: Constipation) RF: 0 metformin 500 mg tablet 1 tab PO BID RF: 0 atorvastatin 10 mg tablet 1 tab PO DAILY RF: 0 pantoprazole 40 mg tablet,delayed release (DR/EC) 1 tab PO BID RF: 0 verapamil 240 mg tablet extended release 1 tab PO BEDTIME RF: 0 montelukast 10 mg tablet 1 tab PO BEDTIME RF: 0 lisinopril 5 mg tablet 1 tab PO DAILY RF: 0 ferrous sulfate 325 mg (65 mg iron) tablet,delayed release (DR/EC) 1 tab PO DAILY RF: 0 Flovent HFA 110 mcg/actuation HFA aerosol inhaler 2 puff inhalation BID RF: 0 norethindrone (contraceptive) [Deblitane] 0.35 mg Tablet 0.35 mg PO DAILY RF: 0 albuterol sulfate [Ventolin HFA] 90 mcg/actuation HFA aerosol inhaler 2 puff inhalation Q4H PRN (Reason: Shortness Of Breath) RF: 0 benztropine 0.5 mg Tablet 0.5 mg PO BID PRN (Reason: EPS) 30 Days Qty: 60 RF: 0 fluoxetine 20 mg Capsule 40 mg PO DAILY 30 Days Qty: 60 RF: 0 hydroxyzine HCl 50 mg Tablet 50 mg PO QID PRN (Reason: Anxiety) 30 Days Qty: 120 RF: 0 nicotine 21 mg/24 hr Patch 24 Hour 21 mg transdermal DAILY PRN (Reason: smoking cessation) 28 Days Qty: 28 RF: 0 clonidine HCl 0.1 mg Tablet 0.1 mg PO BID@0830,1430 30 Days Qty: 60 RF: 0 prazosin 1 mg Capsule 3 mg PO BEDTIME 30 Days Qty: 90 RF: 0 chlorpromazine 25 mg Tablet 50 mg PO QID 30 Days Qty: 240 RF: 0 chlorpromazine 25 mg Tablet 50 mg PO DAILY PRN (Reason: agitation) 30 Days Qty: 30 RF: 0
--- NOTE | 2021-08-19 06:16 | PC.NURSE ---
Patient slept through the night, no distress observed/reported, patient was evaluated by [facility] overnight, disposition d/c to detention in the morning, N will arrange the ride, VSS, med compliant, VSS, will continue to monitor.
--- NOTE | 2021-08-19 07:01 | PC.NURSE ---
Pt ate bkfst. Awaiting ride back to [facility]
[2021-08-19] MEDS: Ferrous Sulfate 324 MG TABLET.DR PO (07:56)
[2021-08-19] MEDS: metFORMIN HCl 500 MG TABLET PO (07:56)
[2021-08-19 07:57] VITALS: BP 100/59; PULSE 86
[2021-08-19] MEDS: chlorproMAZINE HCl 25 MG TABLET 50 MG PO (07:57)
[2021-08-19] MEDS: FLUoxetine HCl 20 MG CAPSULE 40 MG PO (07:57)
[2021-08-19] MEDS: cloNIDine HCL 0.1 MG TABLET PO (07:57)
[2021-08-19 07:58] VITALS: BP 100/59; PULSE 86
[2021-08-19] MEDS: lisinopriL 5 MG TABLET PO (07:58)
[2021-08-19 08:00] VITALS: BP 100/59; PULSE 86; RESP 16; O2SAT 97
== END 2021-08-19 08:06 | disposition home or self-care (01) ==
PROVIDERS: Physician Assistant; Emergency Provider Emergency Medicine; PCP Nurse Practitioner Family
DX: F33.2 Major depressive disorder, recurrent severe without psychotic features (principal); F60.3 Borderline personality disorder; E11.9 Type 2 diabetes mellitus without complications; Z79.84 Long term (current) use of oral hypoglycemic drugs; Z79.899 Other long term (current) drug therapy; Z20.822 Contact with and (suspected) exposure to COVID-19
CPT/HCPCS: 36415; 80053; 80307; 82077; 85025; 87635; 93005; 99284; 99285

== ENCOUNTER 2021-08-19 12:00 | Outpatient (RCR) | payer MEDICARE, MEDICAID, SELFPAY ==
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
--- NOTE | 2021-08-02 21:35 | HO.TMSDAILY2 ---
TMS Daily Progress Note Daily TMS Progress Note Date of Service: 08/02/21 Week #: 1 Treatment #(11-13): 1 PHQ-9 Pre-Treatment (11-10): 19 PHQ-9 Most Recent (11-10): 19 Reviewed: TMS Mapping/Re-mapping completed Verification: I have reviewed the TMS Gambreler Helper Note and agree with the contents. The patient remains a candidate to continue TMS treatment per protocol.
--- NOTE | 2021-08-03 21:16 | P.PNPS_ITS ---
TMS Daily Progress Note Daily TMS Progress Note Date of Service: 08/03/21 Week #: 1 Treatment #(11-13): 2 PHQ-9 Pre-Treatment (11-10): 19 PHQ-9 Most Recent (11-10): 19 Reviewed: TMS Tech Note Reviewed Verification: I have reviewed the TMS Medical Insurance Clerk Note and agree with the contents. The patient remains a candidate to continue TMS treatment per pro tocol. Assessment and Plan (1) MDD (major depressive disorder), recurrent episode, severe: Status: Acute (2) PTSD (post-traumatic stress disorder): Status: Chronic Patient tolerating treatment mapping went well and right-sided treatment for improved benefit and management of anxiety. Previous treatment was quite helpful in this manner
--- NOTE | 2021-08-11 21:07 | HO.TMSDAILY2 ---
TMS Daily Progress Note Daily TMS Progress Note Date of Service: 08/04/21 Week #: 1 Treatment #(11-13): 2 PHQ-9 Pre-Treatment (11-10): 19 PHQ-9 Most Recent (11-10): 19 Reviewed: TMS Tech Note Reviewed (tms 08/04/21) Verification: I have reviewed the TMS Mathematical Technician Note and agree with the contents. The patient remains a candidate to continue TMS treatment per protocol.
--- NOTE | 2021-08-11 21:10 | HO.TMSDAILY2 ---
TMS Daily Progress Note Daily TMS Progress Note Date of Service: 08/09/21 Week #: 1 Treatment #(11-13): 5 PHQ-9 Pre-Treatment (11-10): 19 PHQ-9 Most Recent (11-10): 19 Reviewed: TMS Tech Note Reviewed (for 08/09/21) Verification: I have reviewed the TMS Organizational Consultant Note and agree with the contents. The patient remains a candidate to continue TMS treatment per protocol.
--- NOTE | 2021-08-11 21:12 | HO.TMSDAILY2 ---
TMS Daily Progress Note Daily TMS Progress Note Date of Service: 08/10/21 Week #: 2 Treatment #(11-13): 6 PHQ-9 Pre-Treatment (11-10): 19 PHQ-9 Most Recent (11-10): 19 Reviewed: TMS Tech Note Reviewed Verification: I have reviewed the TMS Enamel Finisher Note and agree with the contents. The patient remains a candidate to continue TMS treatment per protocol. Assessment and Plan (1) MDD (major depressive disorder), recurrent episode, severe: Status: Acute (2) PTSD (post-traumatic stress disorder): Status: Chronic Patient tolerating treatment mapping went well and right-sided treatment for improved benefit and management of anxiety. Previous treatment was quite helpful in this manner
--- NOTE | 2021-08-16 21:48 | P.PNPS_ITS ---
TMS Daily Progress Note Daily TMS Progress Note Date of Service: 08/16/21 Week #: 2 Treatment #(11-13): 7 PHQ-9 Pre-Treatment (11-10): 19 PHQ-9 Most Recent (11-10): 19 Reviewed: TMS Tech Note Reviewed Verification: I have reviewed the TMS Rural Health Consultant Note and agree with the contents. The patient remains a candidate to continue TMS treatment per pro tocol. Assessment and Plan (1) MDD (major depressive disorder), recurrent episode, severe: Status: Acute (2) PTSD (post-traumatic stress disorder): Status: Chronic (3) Borderline personality disorder: Status: Chronic pt was briefly hospitalized has chronic ptsd thomas depression borderline had responded previously to tms will cont series if rehospitalizes will discontinue pt seen denied active si states future oriented anxious no command dissociative sx alert cooperative logical monitor for any worsening of sx
--- NOTE | 2021-08-17 21:47 | HO.TMSDAILY2 ---
TMS Daily Progress Note Daily TMS Progress Note Date of Service: 08/17/21 Week #: 2 Treatment #(11-13): 8 PHQ-9 Pre-Treatment (11-10): 19 PHQ-9 Most Recent (11-10): 19 Reviewed: TMS Tech Note Reviewed Verification: I have reviewed the TMS Sales Systems Engineer Note and agree with the contents. The patient remains a candidate to continue TMS treatment per protocol. Assessment and Plan (1) MDD (major depressive disorder), recurrent episode, severe: Status: Acute (2) PTSD (post-traumatic stress disorder): Status: Chronic (3) Borderline personality disorder: Status: Chronic continue tx plan
--- NOTE | 2021-08-18 22:12 | P.PNPS_ITS ---
TMS Daily Progress Note Daily TMS Progress Note Date of Service: 08/18/21 Week #: 2 Treatment #(11-13): 9 PHQ-9 Pre-Treatment (11-10): 19 PHQ-9 Most Recent (11-10): 19 Reviewed: TMS Tech Note Reviewed Verification: I have reviewed the TMS Senior Information Security Analyst Note and agree with the contents. The patient remains a candidate to continue TMS treatment per pro tocol. Pt was seen in er unclear if tms not effective or adverse effect WILL D/C
--- NOTE | 2021-08-19 15:30 | P.PNPS_ITS ---
TMS Daily Progress Note Daily TMS Progress Note Date of Service: 08/19/21 Week #: 2 Treatment #(11-13): 10 PHQ-9 Pre-Treatment (11-10): 23 PHQ-9 Most Recent (11-10): 14 Reviewed: TMS Tech Note Reviewed Verification: I have reviewed the TMS Store Operations Specialist Note and agree with the contents. The patient remains a candidate to continue TMS treatment per pr otocol. Patient being discharged from TMS does not appear to be helpful unclear if the stabilizing patient had ER visit last night Present level of care with TMS does not appear to be helpful Assessment and Plan (1) MDD (major depressive disorder), recurrent episode, severe: Status: Acute (2) PTSD (post-traumatic stress disorder): Status: Chronic (3) Borderline personality disorder: Status: Chronic Discharge patient from TMS
--- NOTE | 2021-08-21 20:39 | P.PNPS_ITS ---
TMS Daily Progress Note Daily TMS Progress Note Date of Service: 08/19/21 Week #: 2 Treatment #(11-13): 10 PHQ-9 Pre-Treatment (11-10): 19 PHQ-9 Most Recent (11-10): 19 Verification: I have reviewed the TMS Material Control Associate Note and agree with the contents. The patient remains a candidate to continue TMS treatment per protocol.
== END 2021-08-22 11:21 | disposition admitted as inpatient to this hospital (09) ==
LOC: HO.PTMS 12:00
PROVIDERS: Visit Provider Psychiatry & Neurology Psychiatry
DX: F33.2 Major depressive disorder, recurrent severe without psychotic features (principal); F43.10 Post-traumatic stress disorder, unspecified; F60.3 Borderline personality disorder
CPT/HCPCS: 90867; 90868

== ENCOUNTER 2021-08-19 20:05 | Emergency (ER) | payer MEDICARE, MEDICAID, SELFPAY ==
[2021-08-19 20:08] VITALS: BMI 43.9
--- NOTE | 2021-08-19 20:25 | ED_ITS ---
HPI - Psych General Chief Complaint: Psychiatric Symptoms Stated Complaint: SI Time Seen by Provider: 08/19/21 20:25 Source: patient and EMS Mode of arrival: EMS Limitations: no limitations History of Present Illness HPI Narrative: 45-year-old female well known to our ED staff patient had frequent ED visits for psych/SI, came in today for hearing voices telling her to hurt herself or others. Patient admits that she has been suicidal last night, patient came in after was made Section 12. Related Data Home Medications Medication Instructions Recorded Confirmed trazodone 150 mg tablet 150 mg PO BEDTIME 01/27/21 08/18/21 polyethylene glycol 3350 17 gram 17 g PO DAILY PRN 02/12/21 08/18/21 oral powder packet (Miralax) atorvastatin 10 mg tablet 1 tab PO DAILY 05/29/21 08/18/21 ferrous sulfate 325 mg (65 mg 1 tab PO DAILY 05/29/21 08/18/21 iron) tablet,delayed release fluticasone propionate 110 2 puff INHALATION BID 05/29/21 08/18/21 mcg/actuation HFA aerosol inhaler (Flovent HFA) lisinopril 5 mg tablet 1 tab PO DAILY 05/29/21 08/18/21 metformin 500 mg tablet 1 tab PO BID 05/29/21 08/18/21 montelukast 10 mg tablet 1 tab PO BEDTIME 05/29/21 08/18/21 norethindrone (contraceptive) 0.35 0.35 mg PO DAILY 05/29/21 08/18/21 mg tablet (Deblitane) pantoprazole 40 mg tablet,delayed 1 tab PO BID 05/29/21 08/18/21 release verapamil 240 mg tablet,extended 1 tab PO BEDTIME 05/29/21 08/18/21 release albuterol sulfate 90 mcg/actuation 2 puff INHALATION Q4H PRN 06/15/21 08/19/21 aerosol inhaler (Ventolin HFA) Previous Rx's Medication Instructions Recorded benztropine 0.5 mg tablet 0.5 mg PO BID PRN 30 Days #60 tab 07/27/21 fluoxetine 20 mg capsule 40 mg PO DAILY 30 Days #60 cap 07/27/21 hydroxyzine HCl 50 mg tablet 50 mg PO QID PRN 30 Days #120 tab 07/27/21 nicotine 21 mg/24 hr daily 21 mg TRANSDERMAL DAILY PRN 28 07/27/21 transdermal patch Days #28 ea chlorpromazine 25 mg tablet 50 mg PO DAILY PRN 30 Days #30 tab 08/15/21 chlorpromazine 25 mg tablet 50 mg PO QID 30 Days #240 tab 08/15/21 clonidine HCl 0.1 mg tablet 0.1 mg PO BID@0830,1430 30 Days 08/15/21 #60 tab prazosin 1 mg capsule 3 mg PO BEDTIME 30 Days #90 cap 08/15/21 Allergies Allergy/AdvReac Type Severity Reaction Status Date / Time Fish Containing Products Allergy Severe ANAPHYLAXIS Verified 08/18/21 18:18 codeine [Codeine] Allergy Unknown RASH Verified 08/18/21 18:18 Penicillins Allergy Unknown RASH Verified 08/18/21 18:18 prednisone [Prednisone] Allergy Unknown RASH Verified 08/18/21 18:18 Sulfa (Sulfonamide Allergy Unknown RASH Verified 08/18/21 18:18 Antibiotics) [Sulfa (Sulfonamides)] azithromycin [AZITHROMYCIN] AdvReac Severe RASH Verified 08/18/21 18:18 nicotine AdvReac Unknown HEART Verified 08/18/21 18:18 PALPITATION TO NICOTINE GUM Seafood Allergy Severe ANAPHYLAXIS Uncoded 07/31/21 20:43 From Geodon Allergy Unknown DYSURIA, Uncoded 07/31/21 20:43 RASH Review of Systems Review of Systems: All other systems are reviewed and are negative Constitutional: Reports as per HPI and Reports no additional constitutional complaints Eyes: Reports as per HPI and Reports no additional eye complaints Reports system reviewed and no additional complaints, except as documented Cardiovascular: Reports as per HPI and Reports no additional cardiovascular complaints Respiratory: Reports as per HPI and Reports no additional respiratory complaints Gastrointestinal: Reports as per HPI and Reports no additional gastrointestinal complaints Genitourinary: Reports no additional female genitourinary complaints Musculoskeletal: Reports no additional musculoskeletal complaints Skin/Breast: Reports system reviewed and no additional complaints, except as docu Psychiatric: Reports no additional psychiatric complaints Endocrine: Reports no additional endocrine complaints Hematologic/Lymphatic: Reports no additional hematologic/lymphatic complaints Allergic/Immunologic: Reports no additional allergic/immunologic complaints Reports system reviewed and no additional complaints, except as documented and Reports Abnormal speech present PMFSH Past Medical History Medical History Bronchitis Diabetes type 2, controlled GERD (gastroesophageal reflux disease) Hyperlipidemia MDD (major depressive disorder), recurrent episode, severe Mood disorder Overdose PTSD (post-traumatic stress disorder) Social History Social History 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: Other 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 Other:: pt lives in [facility] with 3 other peers Housing: Other Housing Other:: [facility] Do you presently have visiting nurse or other home services: Yes ([facility]) Alcohol intake: never Patient Tobacco Use Status: Current everyday Tobacco user Tobacco use type: Cigarette Cigarette Packs Per Day: 1 Cigarettes Per Day: 20.0 Years Smoked: 20 e-Cigarette/Vaping Use: Never Used Second Hand Smoke Exposure: Yes Substance Use Type: Caffiene Advance Directives: No Advance Directives Information Provided: Yes Patient : No service: No Sexual orientation: Did not discuss. Physical Exam Vital Signs: Vital Signs: Body Mass Index 43.9 Vital signs have been reviewed as appeared to be correct. Blood pressure normal. Heart rate normal. Respiration rate normal. Temperature normal. Oxygen saturation normal. Appearance: Alert. Oriented X3. No acute distress. Head: Normal external exam. Normocephalic. Atraumatic. No Harper signs noted. No raccoon eyes noted Eyes: PERRLA. EOMI. Conjunctiva and sclera normal. Eyelids normal. ENT: TM's Normal. Pharynx normal. Uvula midline. Moist mucous membranes. No trismus noted. No drooling noted. No muffled voice noted. Neck: Normal inspection. Neck supple. FROM. No adenopathy. Thyroid Normal. No meningeal signs. No neck mass noted. CVS: Normal heart rate and rhythm. Heart sound normal. No murmurs noted. Pulses normal throughout. Respiratory: No respiratory distress. Painless inspiration. Breath sounds normal. No wheezes/rales/rhonchi noted. Chest nontender. No accessory muscle usage noted or decreased air movement noted. Abdomen: Soft and nontender. Bowel sounds normal in all 4 quadrants. No distention noted. No organomegaly noted. No visible injury noted. Back: No CVA tenderness. Full range of motion noted. Skin: Skin warm and dry. Normal skin color. Normal skin turgor. No rashes/lesions/lacerations noted. Extremities: No lower extremity edema. Extremities exhibit normal range of motion. Extremities nontender. Neuro: Oriented X 3. Cranial nerve exam: II-XII are grossly intact No motor deficit. No sensory deficit. Reflexes normal. Discharge Plan Discharge Clinical Impression: Borderline personality disorder, PTSD (post-traumatic stress disorder), MDD (major depressive disorder), recurrent episode, severe, Suicidal ideation Prescriptions: No Action trazodone 150 mg tablet 150 mg PO BEDTIME RF: 0 polyethylene glycol 3350 [Miralax] 17 gram Powder In Packet 17 g PO DAILY PRN (Reason: Constipation) RF: 0 metformin 500 mg tablet 1 tab PO BID RF: 0 atorvastatin 10 mg tablet 1 tab PO DAILY RF: 0 pantoprazole 40 mg tablet,delayed release (DR/EC) 1 tab PO BID RF: 0 verapamil 240 mg tablet extended release 1 tab PO BEDTIME RF: 0 montelukast 10 mg tablet 1 tab PO BEDTIME RF: 0 lisinopril 5 mg tablet 1 tab PO DAILY RF: 0 ferrous sulfate 325 mg (65 mg iron) tablet,delayed release (DR/EC) 1 tab PO DAILY RF: 0 Flovent HFA 110 mcg/actuation HFA aerosol inhaler 2 puff inhalation BID RF: 0 norethindrone (contraceptive) [Deblitane] 0.35 mg Tablet 0.35 mg PO DAILY RF: 0 albuterol sulfate [Ventolin HFA] 90 mcg/actuation HFA aerosol inhaler 2 puff inhalation Q4H PRN (Reason: Shortness Of Breath) RF: 0 benztropine 0.5 mg Tablet 0.5 mg PO BID PRN (Reason: EPS) 30 Days Qty: 60 RF: 0 fluoxetine 20 mg Capsule 40 mg PO DAILY 30 Days Qty: 60 RF: 0 hydroxyzine HCl 50 mg Tablet 50 mg PO QID PRN (Reason: Anxiety) 30 Days Qty: 120 RF: 0 nicotine 21 mg/24 hr Patch 24 Hour 21 mg transdermal DAILY PRN (Reason: smoking cessation) 28 Days Qty: 28 RF: 0 clonidine HCl 0.1 mg Tablet 0.1 mg PO BID@0830,1430 30 Days Qty: 60 RF: 0 prazosin 1 mg Capsule 3 mg PO BEDTIME 30 Days Qty: 90 RF: 0 chlorpromazine 25 mg Tablet 50 mg PO QID 30 Days Qty: 240 RF: 0 chlorpromazine 25 mg Tablet 50 mg PO DAILY PRN (Reason: agitation) 30 Days Qty: 30 RF: 0
[2021-08-19 20:31] LABS: Glucose, Whole Blood 117 mg/dL (60-115)
[2021-08-19 20:48] VITALS: BP 127/63; PULSE 112; TEMP 36.8; O2SAT 98
[2021-08-19 20:59] LABS: COVID-19 Test Negative (Negative); IDNOW Serial# 9DD0AD1C
[2021-08-19 21:02] LABS: Amphetamine Screen Urine Not Detected (Not Detect); Barbiturates, Urine Not Detected (Not Detect); Benzodiazepines Screen Urine Not Detected (Not Detect); Cannabinoid Screen Urine Not Detected (Not Detect); Cocaine Screen Urine Not Detected (Not Detect); Fentanyl, urine POSITIVE (Not Detect); Opiate Screen Urine Not Detected (Not Detect); Phencyclidine Screen Urine Not Detected (Not Detect)
[2021-08-20] VITALS (9 sets, daily range): BP systolic 102–143; BP diastolic 52–121; PULSE 75–91; RESP 16–18; TEMP 36.6–36.8; O2SAT 96–100
[2021-08-20] MEDS: Omeprazole 20 MG CAPSULE.DR PO ×2 (05:17→16:28)
--- NOTE | 2021-08-20 05:34 | PC.NURSE ---
Patient slept well, no distress observed/reported, medication compliant, behavior quiet and appropriate, appetite good, contracted for the safety, disposition per [facility] is section 12 inpatient bed search, VSS, will continue to monitor.
--- NOTE | 2021-08-20 08:10 | PC.NURSE ---
patient appeared at rest at t/w arrival to unit, patient appears to reamin atrest presently with even unlabored breaths, patient appears in no distress
[2021-08-20] MEDS: cloNIDine HCL 0.1 MG TABLET PO ×2 (08:34→13:26)
[2021-08-20] MEDS: chlorproMAZINE HCl 25 MG TABLET 50 MG PO ×4 (08:34→20:35)
[2021-08-20] MEDS: Ferrous Sulfate 324 MG TABLET.DR PO (08:35)
[2021-08-20] MEDS: Atorvastatin Calcium 10 MG TABLET PO (08:35)
[2021-08-20] MEDS: metFORMIN HCl 500 MG TABLET PO ×2 (08:35→20:36)
[2021-08-20] MEDS: FLUoxetine HCl 20 MG CAPSULE 40 MG PO (08:35)
[2021-08-20] MEDS: lisinopriL 5 MG TABLET PO (08:36)
[2021-08-20] MEDS: hydrOXYzine HCL 50 MG TABLET PO (09:20)
[2021-08-20] MEDS: Nicotine 21 MG PATCH.TD24 TRANSDERMA (09:20)
--- NOTE | 2021-08-20 09:21 | PC.NURSE ---
patient up and picking at self harming areas, chats with staff, requests prn gave client choice she was undecided, gave client vistaril
[2021-08-20] MEDS: Fluticasone Propionate 100 MCG BLST.W.DEV 2 PUFF INHALE ×2 (10:47→20:39)
[2021-08-20 11:35] LABS: Glucose, Whole Blood 79 mg/dL (60-115)
[2021-08-20] MEDS: traZODone HCL 50 MG TABLET 150 MG PO (20:35)
[2021-08-20] MEDS: Montelukast Sodium 10 MG TABLET PO (20:36)
[2021-08-20] MEDS: Prazosin HCL 1 MG CAPSULE 3 MG PO (20:36)
[2021-08-20] MEDS: VerapamiL HCL SR 240 MG TABLET.ER PO (20:38)
[2021-08-21] VITALS (7 sets, daily range): BP systolic 107–130; BP diastolic 59–80; PULSE 79–85; RESP 16; TEMP 36.5; O2SAT 97
--- NOTE | 2021-08-21 05:28 | PC.NURSE ---
Patient slept through the night, no distress observed/reported, up out of room x 2 for bathroom use and back, sat in hallway briefly, VSS, medication compliant, behavior calm, quiet, and appropriate, disposition is section 12 inpatient bed search, will continue to monitor.
[2021-08-21] MEDS: Omeprazole 20 MG CAPSULE.DR PO ×2 (06:04→16:16)
--- NOTE | 2021-08-21 06:59 | PC.NURSE ---
patient appears to remain asleep at present, respirations are even and unlabored, patient appears in no distress
[2021-08-21] MEDS: Nicotine 21 MG PATCH.TD24 TRANSDERMA (07:34)
[2021-08-21] MEDS: Fluticasone Propionate 100 MCG BLST.W.DEV 2 PUFF INHALE ×2 (07:34→20:34)
[2021-08-21] MEDS: metFORMIN HCl 500 MG TABLET PO ×2 (08:16→20:30)
[2021-08-21] MEDS: FLUoxetine HCl 20 MG CAPSULE 40 MG PO (08:16)
[2021-08-21] MEDS: cloNIDine HCL 0.1 MG TABLET PO ×2 (08:16→14:04)
[2021-08-21] MEDS: lisinopriL 5 MG TABLET PO (08:17)
[2021-08-21] MEDS: Atorvastatin Calcium 10 MG TABLET PO (08:17)
[2021-08-21] MEDS: Ferrous Sulfate 324 MG TABLET.DR PO (08:17)
[2021-08-21] MEDS: chlorproMAZINE HCl 25 MG TABLET 50 MG PO ×5 (08:18→20:29)
[2021-08-21] MEDS: polyethylene glycoL 3350 17 GM POWD.PACK PO (08:27)
--- NOTE | 2021-08-21 10:11 | PC.NURSE ---
staff report client rubbing AT self harming (history) sites and gesturing/tapping head on wall in room. patient consulted regarding prn medication and given po.
[2021-08-21 11:11] LABS: Glucose, Whole Blood 135 mg/dL (60-115)
[2021-08-21] MEDS: Montelukast Sodium 10 MG TABLET PO (20:30)
[2021-08-21] MEDS: traZODone HCL 50 MG TABLET 150 MG PO (20:30)
[2021-08-21] MEDS: Prazosin HCL 1 MG CAPSULE 3 MG PO (20:30)
[2021-08-21] MEDS: VerapamiL HCL SR 240 MG TABLET.ER PO (21:21)
[2021-08-22 03:32] VITALS: BP 113/65; PULSE 82; RESP 16; TEMP 37.1; O2SAT 97
[2021-08-22] MEDS: Omeprazole 20 MG CAPSULE.DR PO (05:38)
--- NOTE | 2021-08-22 05:42 | PC.NURSE ---
Patient slept through the night, no distress observed/reported, patient was out of room x 1 for bathroom use and back, compliant with her medication, mood pleasant, behavior appropriate, VSS, contracted for the safety, patient disposition d/c back to senior care, care team will coordinate the care, will continue to monitor.
[2021-08-22 07:32] VITALS: PULSE 82
[2021-08-22] MEDS: lisinopriL 5 MG TABLET PO (07:32)
[2021-08-22] MEDS: Fluticasone Propionate 100 MCG BLST.W.DEV 2 PUFF INHALE (07:32)
[2021-08-22 07:33] VITALS: BP 113/65; PULSE 82
[2021-08-22] MEDS: FLUoxetine HCl 20 MG CAPSULE 40 MG PO (07:33)
[2021-08-22] MEDS: cloNIDine HCL 0.1 MG TABLET PO (07:33)
[2021-08-22] MEDS: chlorproMAZINE HCl 25 MG TABLET 50 MG PO (07:34)
[2021-08-22] MEDS: Atorvastatin Calcium 10 MG TABLET PO (07:34)
[2021-08-22] MEDS: Ferrous Sulfate 324 MG TABLET.DR PO (07:34)
[2021-08-22] MEDS: metFORMIN HCl 500 MG TABLET PO (07:35)
== END 2021-08-22 07:58 | disposition home or self-care (01) ==
PROVIDERS: Emergency Provider Emergency Medicine
DX: R45.851 Suicidal ideations (principal); F43.10 Post-traumatic stress disorder, unspecified; F33.2 Major depressive disorder, recurrent severe without psychotic features; E11.9 Type 2 diabetes mellitus without complications; E78.5 Hyperlipidemia, unspecified; F17.200 Nicotine dependence, unspecified, uncomplicated; Z79.899 Other long term (current) drug therapy; Z79.02 Long term (current) use of antithrombotics/antiplatelets; Z20.822 Contact with and (suspected) exposure to COVID-19
CPT/HCPCS: 36415; 80307; 82947; 87635; 99285

== ENCOUNTER 2021-08-26 18:07 | Emergency (ER) | payer MEDICARE, MEDICAID, SELFPAY ==
[2021-08-26 18:27] VITALS: BP 106/72; PULSE 93; RESP 18; TEMP 37.2; O2SAT 97; BMI 43.8
--- NOTE | 2021-08-26 18:38 | ED.PSYCH ---
HPI - Psych General Chief Complaint: Psychiatric Symptoms Stated Complaint: crisis Time Seen by Provider: 08/26/21 18:33 Source: patient and EMS Mode of arrival: EMS Limitations: no limitations History of Present Illness HPI Narrative: 45-year-old female with a past medical history of bipolar, borderline personality disorder, PTSD, anxiety, depression here with complaints of suicidal thoughts, hearing voices telling her to kill herself. Patient tells me she has a feeling this way for the last 2 days. Unknown trigger. Patient is beginning her medications from her correction. She was planning on going to the drug store and buy an [id number] medication in attempt to kill herself. No physical complaints Related Data Home Medications Medication Instructions Recorded Confirmed trazodone 150 mg tablet 150 mg PO BEDTIME 01/27/21 08/26/21 polyethylene glycol 3350 17 gram 17 g PO DAILY PRN 02/12/21 08/26/21 oral powder packet (Miralax) atorvastatin 10 mg tablet 1 tab PO DAILY 05/29/21 08/26/21 ferrous sulfate 325 mg (65 mg 1 tab PO DAILY 05/29/21 08/26/21 iron) tablet,delayed release fluticasone propionate 110 2 puff INHALATION BID 05/29/21 08/26/21 mcg/actuation HFA aerosol inhaler (Flovent HFA) lisinopril 5 mg tablet 1 tab PO DAILY 05/29/21 08/26/21 metformin 500 mg tablet 1 tab PO BID 05/29/21 08/26/21 montelukast 10 mg tablet 1 tab PO BEDTIME 05/29/21 08/26/21 norethindrone (contraceptive) 0.35 0.35 mg PO DAILY 05/29/21 08/26/21 mg tablet (Deblitane) pantoprazole 40 mg tablet,delayed 1 tab PO BID 05/29/21 08/26/21 release verapamil 240 mg tablet,extended 1 tab PO BEDTIME 05/29/21 08/26/21 release albuterol sulfate 90 mcg/actuation 2 puff INHALATION Q4H PRN 06/15/21 08/26/21 aerosol inhaler (Ventolin HFA) clonidine HCl 0.1 mg tablet 0.1 mg PO BID@0830,1430 08/26/21 08/26/21 Previous Rx's Medication Instructions Recorded benztropine 0.5 mg tablet 0.5 mg PO BID PRN 30 Days #60 tab 07/27/21 fluoxetine 20 mg capsule 40 mg PO DAILY 30 Days #60 cap 07/27/21 hydroxyzine HCl 50 mg tablet 50 mg PO QID PRN 30 Days #120 tab 07/27/21 nicotine 21 mg/24 hr daily 21 mg TRANSDERMAL DAILY PRN 28 07/27/21 transdermal patch Days #28 ea chlorpromazine 25 mg tablet 50 mg PO DAILY PRN 30 Days #30 tab 08/15/21 chlorpromazine 25 mg tablet 50 mg PO QID 30 Days #240 tab 08/15/21 prazosin 1 mg capsule 3 mg PO BEDTIME 30 Days #90 cap 08/15/21 Allergies Allergy/AdvReac Type Severity Reaction Status Date / Time Fish Containing Products Allergy Severe ANAPHYLAXIS Verified 08/18/21 18:18 codeine [Codeine] Allergy Unknown RASH Verified 08/18/21 18:18 Penicillins Allergy Unknown RASH Verified 08/18/21 18:18 prednisone [Prednisone] Allergy Unknown RASH Verified 08/18/21 18:18 Sulfa (Sulfonamide Allergy Unknown RASH Verified 08/18/21 18:18 Antibiotics) [Sulfa (Sulfonamides)] azithromycin [AZITHROMYCIN] AdvReac Severe RASH Verified 08/18/21 18:18 nicotine AdvReac Unknown HEART Verified 08/18/21 18:18 PALPITATION TO NICOTINE GUM Seafood Allergy Severe ANAPHYLAXIS Uncoded 07/31/21 20:43 From Geodon Allergy Unknown DYSURIA, Uncoded 07/31/21 20:43 RASH Review of Systems Review of Systems: Yes all other systems are reviewed and are negative Constitutional: Constitutional: Reports no additional constitutional complaints, Denies body ache(s), Denies chills, Denies fever(s), Denies headache(s) and Denies weakness Eyes: Eyes: Reports no additional eye complaints and Denies change in vision ENT: Reports system reviewed and no additional complaints, except as documented, Denies dizziness, Denies headache(s), Denies nasal congestion, Denies nasal discharge and Denies neck pain Cardiovascular: Cardiovascular: Reports no additional cardiovascular complaints, Denies chest pain, Denies leg edema and Denies dyspnea Respiratory: Respiratory: Reports no additional respiratory complaints, Denies cough and Denies dyspnea Gastrointestinal: Gastrointestinal: Reports no additional gastrointestinal complaints, Denies abdominal pain, Denies diarrhea, Denies nausea and Denies vomiting Genitourinary: Genitourinary: Reports no additional female genitourinary complaints and Denies urinary incontinence Musculoskeletal: Musculoskeletal: Reports no additional musculoskeletal complaints, Denies back pain, Denies arthralgias, Denies joint swelling, Denies neck pain, Denies numbness and Denies tingling Integumentary/Breasts: Skin/Breast: Reports system reviewed and no additional complaints, except as docu and Denies rash Neurologic: Reports system reviewed and no additional complaints, except as documented, Denies Abnormal speech present, Denies dizziness, Denies headache(s), Denies numbness, Denies tingling and Denies weakness Psychiatric: Psychiatric: Reports depression, Reports hallucinations and Reports homicidal ideation [facility] Past Medical History Attestation statement: The following information was validated with the patient. Source: old records reviewed and nursing notes reviewed Medical History Bronchitis Diabetes type 2, controlled GERD (gastroesophageal reflux disease) Hyperlipidemia MDD (major depressive disorder), recurrent episode, severe Mood disorder Overdose PTSD (post-traumatic stress disorder) Social History Social History 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: Other 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 Other:: pt lives in correction with 3 other peers Housing: Other Housing Other:: correction Do you presently have visiting nurse or other home services: Yes (correction) Alcohol intake: never Patient Tobacco Use Status: Current everyday Tobacco user Tobacco use type: Cigarette Cigarette Packs Per Day: 1 Cigarettes Per Day: 20.0 Years Smoked: 20 e-Cigarette/Vaping Use: Never Used Second Hand Smoke Exposure: Yes Substance Use Type: Caffiene Advance Directives: No Advance Directives Information Provided: No Patient : No service: No Sexual orientation: Did not discuss. Physical Exam Vital Signs: Vital Signs: Last Vital Signs Temp 99.0 F 08/26/21 18:27 Pulse 93 08/26/21 18:27 Resp 18 08/26/21 18:27 BP 106/72 08/26/21 18:27 Pulse Ox 97 08/26/21 18:27 Body Mass Index 43.8 Const: General: cooperative, healthy appearing, comfortable and no acute distress Orientation/consciousness: patient oriented x3 Limitations: no limitations HENMT: Head: Yes normal to inspection Ears: hearing grossly normal bilaterally General nose exam: Normal external nose present Face and sinus: Yes normal facial exam Mouth: Normal oral and palatal mucosa present Throat: Yes posterior oropharynx normal Eyes: General: appearance normal, both eyes and all related structures Pupils: Equal, round and reactive pupils present Neck: Neck: Yes normal visual inspection Chest: Chest palpation & inspection: normal inspection of the chest Resp: Effort & Inspection: normal respiratory effort Auscultation: clear to auscultation bilaterally Cardio: Rate: regular rate Rhythm: regular rhythm Peripheral pulses: Peripheral pulses 2+ throughout GI: Inspection: Yes normal to inspection Palpation (GI): Soft to palpation and nontender Auscultation: normal bowel sounds Back/Spine/Pelvis: Thoracic/Lumbar Spine: thoracic and lumbar spine normal to inspection Skin: General skin exam: no rashes or lesions noted Neuro: General: patient oriented x3, no focal motor deficits and normal sensation to monofilament Cranial nerves: Yes CN's II-XII intact bilaterally and Yes Equal, round and reactive pupils present Cognition (Neuro): normal cognition Speech: No Abnormal speech present Gait exam (Neuro): Normal gait present Motor exam (neuro): 5/5 motor strength present throughout Extrem: General: Yes normal to inspection, Yes no pedal edema and Yes no calf tenderness Course Course Course Narrative: 45-year-old female here with complaints of suicidal thoughts, hearing voices telling her to kill herself. Will need labs, drug screen, crisis evaluation 2030-medications reconciled. Patient placed in physician observation pending disposition. MDM - Psych Medical Records Attestation: I reviewed the patient's medical records. Lab Data Attestation: I reviewed the patient's lab results. Labs: Lab Results 08/26/21 08/26/21 08/26/21 Range/Units 18:52 18:57 18:57 Urine Test NEGATIVE (NEGATIVE) Urine Opiates Screen Not Detected (Not Detect) Urine Fentanyl Screen Not Detected (Not Detect) Ur Barbiturates Screen Not Detected (Not Detect) Ur Phencyclidine Scrn Not Detected (Not Detect) Ur Amphetamines Screen Not Detected (Not Detect) U Benzodiazepines Scrn Not Detected (Not Detect) Urine Cocaine Screen Not Detected (Not Detect) U Marijuana (THC) Screen Not Detected (Not Detect) COVID-19 ([facility]ICK) Negative (Negative) COVID-19 Clin Com See Note Discharge Plan Discharge Clinical Impression: Borderline personality disorder Prescriptions: No Action trazodone 150 mg tablet 150 mg PO BEDTIME RF: 0 polyethylene glycol 3350 [Miralax] 17 gram Powder In Packet 17 g PO DAILY PRN (Reason: Constipation) RF: 0 metformin 500 mg tablet 1 tab PO BID RF: 0 atorvastatin 10 mg tablet 1 tab PO DAILY RF: 0 pantoprazole 40 mg tablet,delayed release (DR/EC) 1 tab PO BID RF: 0 verapamil 240 mg tablet extended release 1 tab PO BEDTIME RF: 0 montelukast 10 mg tablet 1 tab PO BEDTIME RF: 0 lisinopril 5 mg tablet 1 tab PO DAILY RF: 0 ferrous sulfate 325 mg (65 mg iron) tablet,delayed release (DR/EC) 1 tab PO DAILY RF: 0 Flovent HFA 110 mcg/actuation HFA aerosol inhaler 2 puff inhalation BID RF: 0 norethindrone (contraceptive) [Deblitane] 0.35 mg Tablet 0.35 mg PO DAILY RF: 0 albuterol sulfate [Ventolin HFA] 90 mcg/actuation HFA aerosol inhaler 2 puff inhalation Q4H PRN (Reason: Shortness Of Breath) RF: 0 benztropine 0.5 mg Tablet 0.5 mg PO BID PRN (Reason: EPS) 30 Days Qty: 60 RF: 0 fluoxetine 20 mg Capsule 40 mg PO DAILY 30 Days Qty: 60 RF: 0 hydroxyzine HCl 50 mg Tablet 50 mg PO QID PRN (Reason: Anxiety) 30 Days Qty: 120 RF: 0 nicotine 21 mg/24 hr Patch 24 Hour 21 mg transdermal DAILY PRN (Reason: smoking cessation) 28 Days Qty: 28 RF: 0 prazosin 1 mg Capsule 3 mg PO BEDTIME 30 Days Qty: 90 RF: 0 chlorpromazine 25 mg Tablet 50 mg PO QID 30 Days Qty: 240 RF: 0 chlorpromazine 25 mg Tablet 50 mg PO DAILY PRN (Reason: agitation) 30 Days Qty: 30 RF: 0 clonidine HCl 0.1 mg tablet 0.1 mg PO BID@0830,1430 RF: 0
--- NOTE | 2021-08-26 18:59 | PHA.MEDREC ---
Pharmacy Consult ? Medication Reconciliation Pharmacy has completed the medication reconciliation. Patient came in with a medication list dated 08/15. I spoke to patient and their medications from last discharge (08/22) have not changed Thanks Mauro Venegas Pharm D
[2021-08-26 19:06] LABS: UPreg QC Valid YES; Urine Pregnancy NEGATIVE (NEGATIVE)
[2021-08-26 19:18] LABS: Amphetamine Screen Urine Not Detected (Not Detect); Barbiturates, Urine Not Detected (Not Detect); Benzodiazepines Screen Urine Not Detected (Not Detect); Cannabinoid Screen Urine Not Detected (Not Detect); Cocaine Screen Urine Not Detected (Not Detect); Fentanyl, urine Not Detected (Not Detect); Opiate Screen Urine Not Detected (Not Detect); Phencyclidine Screen Urine Not Detected (Not Detect)
[2021-08-26 19:19] LABS: COVID-19 Test Negative (Negative); IDNOW Serial# 9DD0AD1C
[2021-08-26 21:49] VITALS: BP 110/71; PULSE 79
[2021-08-26] MEDS: Montelukast Sodium 10 MG TABLET PO (21:49)
[2021-08-26] MEDS: chlorproMAZINE HCl 25 MG TABLET 50 MG PO (21:49)
[2021-08-26] MEDS: Prazosin HCL 1 MG CAPSULE 3 MG PO (21:49)
[2021-08-26] MEDS: traZODone HCL 50 MG TABLET 150 MG PO (21:49)
[2021-08-26] MEDS: metFORMIN HCl 500 MG TABLET PO (21:49)
[2021-08-26 21:59] VITALS: BP 110/71; PULSE 79
[2021-08-26] MEDS: VerapamiL HCL SR 240 MG TABLET.ER PO (21:59)
--- NOTE | 2021-08-27 01:15 | PC.NURSE ---
pt seen by [facility]on, plan is for discharge back to [facility].
--- NOTE | 2021-08-27 02:15 | PC.NURSE ---
[facility] called and spoke to Arvin to let them know she is being discharged and will be ready for [facility]. Arvin states the ride will be ready at 0800 and to call at 0800 to verify the ride is on their way.
[2021-08-27 05:43] VITALS: BP 100/53; PULSE 89; RESP 16; TEMP 36.6; O2SAT 98
--- NOTE | 2021-08-27 05:51 | PC.NURSE ---
pt oob walked around, calm cooperative, waiting for ride from [facility]. pt is aware of the plan.
== END 2021-08-27 06:44 | disposition home or self-care (01) ==
PROVIDERS: Nurse Practitioner Family; Emergency Provider Internal Medicine; PCP Nurse Practitioner Family
DX: F60.3 Borderline personality disorder (principal); F25.9 Schizoaffective disorder, unspecified; E11.9 Type 2 diabetes mellitus without complications; Z79.84 Long term (current) use of oral hypoglycemic drugs; Z79.899 Other long term (current) drug therapy
CPT/HCPCS: 36415; 80307; 81025; 87635; 99284

== ENCOUNTER 2021-08-27 17:42 | Emergency (ER) | payer MEDICARE, MEDICAID, SELFPAY ==
[2021-08-27 17:49] VITALS: BP 130/65; BP 140/90; PULSE 100; PULSE 102; RESP 15; TEMP 36.7; O2SAT 100; O2SAT 98; BMI 35.3
--- NOTE | 2021-08-27 18:21 | ED.PSYCH ---
HPI - Psych General Chief Complaint: Psychiatric Symptoms Stated Complaint: crisis Time Seen by Provider: 08/27/21 18:03 Source: patient and EMS Mode of arrival: EMS Limitations: no limitations History of Present Illness HPI Narrative: 45-year-old female with a past medical history of bipolar, borderline personality disorder, PTSD, anxiety, depression here with complaints of suicidal thoughts, hearing voices telling her to kill herself.? Patient tells me she has a feeling this way for the last 2 days.? Unknown trigger.? Patient is [facility] her medications [facility].? She was planning on going to the drug store and buy an [id number] medication in attempt to kill herself.? No physical complaints Of note patient was seen here yesterday. Discharged this morning back to [facility]. Related Data Home Medications Medication Instructions Recorded Confirmed trazodone 150 mg tablet 150 mg PO BEDTIME 01/27/21 08/27/21 polyethylene glycol 3350 17 gram 17 g PO DAILY PRN 02/12/21 08/27/21 oral powder packet (Miralax) atorvastatin 10 mg tablet 1 tab PO DAILY 05/29/21 08/27/21 ferrous sulfate 325 mg (65 mg 1 tab PO DAILY 05/29/21 08/27/21 iron) tablet,delayed release fluticasone propionate 110 2 puff INHALATION BID 05/29/21 08/27/21 mcg/actuation HFA aerosol inhaler (Flovent HFA) lisinopril 5 mg tablet 1 tab PO DAILY 05/29/21 08/27/21 metformin 500 mg tablet 1 tab PO BID 05/29/21 08/27/21 montelukast 10 mg tablet 1 tab PO BEDTIME 05/29/21 08/27/21 norethindrone (contraceptive) 0.35 0.35 mg PO DAILY 05/29/21 08/27/21 mg tablet (Deblitane) pantoprazole 40 mg tablet,delayed 1 tab PO BID@0630,1630 05/29/21 08/27/21 release verapamil 240 mg tablet,extended 1 tab PO BEDTIME 05/29/21 08/27/21 release albuterol sulfate 90 mcg/actuation 2 puff INHALATION Q4H PRN 06/15/21 08/27/21 aerosol inhaler (Ventolin HFA) clonidine HCl 0.1 mg tablet 0.1 mg PO BID@0830,1430 08/26/21 08/27/21 ibuprofen 600 mg tablet 1 tab PO Q6H PRN 08/27/21 08/27/21 Previous Rx's Medication Instructions Recorded benztropine 0.5 mg tablet 0.5 mg PO BID PRN 30 Days #60 tab 07/27/21 fluoxetine 20 mg capsule 40 mg PO DAILY 30 Days #60 cap 07/27/21 hydroxyzine HCl 50 mg tablet 50 mg PO QID PRN 30 Days #120 tab 07/27/21 nicotine 21 mg/24 hr daily 21 mg TRANSDERMAL DAILY PRN 28 07/27/21 transdermal patch Days #28 ea chlorpromazine 25 mg tablet 50 mg PO DAILY PRN 30 Days #30 tab 08/15/21 chlorpromazine 25 mg tablet 50 mg PO QID 30 Days #240 tab 08/15/21 prazosin 1 mg capsule 3 mg PO BEDTIME 30 Days #90 cap 08/15/21 Allergies Allergy/AdvReac Type Severity Reaction Status Date / Time Fish Containing Products Allergy Severe ANAPHYLAXIS Verified 08/18/21 18:18 codeine [Codeine] Allergy Unknown RASH Verified 08/18/21 18:18 Penicillins Allergy Unknown RASH Verified 08/18/21 18:18 prednisone [Prednisone] Allergy Unknown RASH Verified 08/18/21 18:18 Sulfa (Sulfonamide Allergy Unknown RASH Verified 08/18/21 18:18 Antibiotics) [Sulfa (Sulfonamides)] azithromycin [AZITHROMYCIN] AdvReac Severe RASH Verified 08/18/21 18:18 nicotine AdvReac Unknown HEART Verified 08/18/21 18:18 PALPITATION TO NICOTINE GUM Seafood Allergy Severe ANAPHYLAXIS Uncoded 07/31/21 20:43 From Geodon Allergy Unknown DYSURIA, Uncoded 07/31/21 20:43 RASH Review of Systems Review of Systems: Yes all other systems are reviewed and are negative Constitutional: Constitutional: Reports no additional constitutional complaints, Denies body ache(s), Denies chills, Denies fever(s), Denies headache(s) and Denies weakness Eyes: Eyes: Reports no additional eye complaints and Denies change in vision ENT: Reports system reviewed and no additional complaints, except as documented, Denies dizziness, Denies headache(s), Denies nasal congestion, Denies nasal discharge and Denies neck pain Cardiovascular: Cardiovascular: Reports no additional cardiovascular complaints, Denies chest pain, Denies leg edema and Denies dyspnea Respiratory: Respiratory: Reports no additional respiratory complaints, Denies cough and Denies dyspnea Gastrointestinal: Gastrointestinal: Reports no additional gastrointestinal complaints, Denies abdominal pain, Denies diarrhea, Denies nausea and Denies vomiting Genitourinary: Genitourinary: Reports no additional female genitourinary complaints and Denies urinary incontinence Musculoskeletal: Musculoskeletal: Reports no additional musculoskeletal complaints, Denies back pain, Denies arthralgias, Denies joint swelling, Denies neck pain, Denies numbness and Denies tingling Integumentary/Breasts: Skin/Breast: Reports system reviewed and no additional complaints, except as docu and Denies rash Neurologic: Reports system reviewed and no additional complaints, except as documented, Denies Abnormal speech present, Denies dizziness, Denies headache(s), Denies numbness, Denies tingling and Denies weakness Psychiatric: Psychiatric: Reports anxiety, Reports depression, Reports visual hallucinations, Reports hallucinations and Reports suicidal ideation [facility] Past Medical History Attestation statement: The following information was validated with the patient. Source: old records reviewed and nursing notes reviewed Medical History Bronchitis Diabetes type 2, controlled GERD (gastroesophageal reflux disease) Hyperlipidemia MDD (major depressive disorder), recurrent episode, severe Mood disorder Overdose PTSD (post-traumatic stress disorder) Social History Social History 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: Other 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 Other:: pt lives in pen[facility]iary with 3 other peers Housing: Other Housing Other:: penitentiary Do you presently have visiting nurse or other home services: Yes ([facility]itentiary) Alcohol intake: never Patient Tobacco Use Status: Current everyday Tobacco user Tobacco use type: Cigarette Cigarette Packs Per Day: 1 Cigarettes Per Day: 20.0 Years Smoked: 20 e-Cigarette/Vaping Use: Never Used Second Hand Smoke Exposure: Yes Substance Use Type: Caffiene Advance Directives: No Advance Directives Information Provided: No Patient : No service: No Sexual orientation: Did not discuss. Physical Exam Vital Signs: Vital Signs: Last Vital Signs Temp 98.1 F 08/27/21 17:49 Pulse 102 H 11/13/21 17:49 Resp 15 08/27/21 17:49 BP 130/65 08/27/21 17:49 Pulse Ox 98 08/27/21 17:49 Body Mass Index 35.3 Const: General: cooperative, healthy appearing, comfortable and no acute distress Orientation/consciousness: patient oriented x3 Limitations: no limitations HENMT: Head: Yes normal to inspection Ears: hearing grossly normal bilaterally General nose exam: Normal external nose present Face and sinus: Yes normal facial exam Mouth: Normal oral and palatal mucosa present Throat: Yes posterior oropharynx normal Eyes: General: appearance normal, both eyes and all related structures Pupils: Equal, round and reactive pupils present Neck: Neck: Yes normal visual inspection Chest: Chest palpation & inspection: normal inspection of the chest Resp: Effort & Inspection: normal respiratory effort Auscultation: clear to auscultation bilaterally Cardio: Rate: regular rate Rhythm: regular rhythm Peripheral pulses: Peripheral pulses 2+ throughout GI: Inspection: Yes normal to inspection Palpation (GI): Soft to palpation and nontender Auscultation: normal bowel sounds Back/Spine/Pelvis: Thoracic/Lumbar Spine: thoracic and lumbar spine normal to inspection Skin: General skin exam: no rashes or lesions noted Neuro: General: patient oriented x3, no focal motor deficits and normal sensation to monofilament Cranial nerves: Yes CN's II-XII intact bilaterally and Yes Equal, round and reactive pupils present Cognition (Neuro): normal cognition Speech: No Abnormal speech present Gait exam (Neuro): Normal gait present Motor exam (neuro): 5/5 motor strength present throughout Extrem: General: Yes normal to inspection Course Course Course Narrative: 45-year-old female here with complaints of suicidal thoughts, hearing voices telling her to kill herself. Will need labs, drug screen, crisis evaluation 1929-placed in physician observation pending disposition. Medication reconciliation done. MDM - Psych Medical Records Attestation: I reviewed the patient's medical records. Lab Data Attestation: I reviewed the patient's lab results. Labs: Lab Results 08/27/21 Range/Units 18:54 Urine Opiates Screen Not Detected (Not Detect) Urine Fentanyl Screen Not Detected (Not Detect) Ur Barbiturates Screen Not Detected (Not Detect) Ur Phencyclidine Scrn Not Detected (Not Detect) Ur Amphetamines Screen Not Detected (Not Detect) U Benzodiazepines Scrn Not Detected (Not Detect) Urine Cocaine Screen Not Detected (Not Detect) U Marijuana (THC) Screen Not Detected (Not Detect) Discharge Plan Discharge Clinical Impression: Borderline personality disorder Prescriptions: No Action trazodone 150 mg tablet 150 mg PO BEDTIME RF: 0 polyethylene glycol 3350 [Miralax] 17 gram Powder In Packet 17 g PO DAILY PRN (Reason: Constipation) RF: 0 metformin 500 mg tablet 1 tab PO BID RF: 0 atorvastatin 10 mg tablet 1 tab PO DAILY RF: 0 pantoprazole 40 mg tablet,delayed release (DR/EC) 1 tab PO BID@0630,1630 RF: 0 verapamil 240 mg tablet extended release 1 tab PO BEDTIME RF: 0 montelukast 10 mg tablet 1 tab PO BEDTIME RF: 0 lisinopril 5 mg tablet 1 tab PO DAILY RF: 0 ferrous sulfate 325 mg (65 mg iron) tablet,delayed release (DR/EC) 1 tab PO DAILY RF: 0 Flovent HFA 110 mcg/actuation HFA aerosol inhaler 2 puff inhalation BID RF: 0 norethindrone (contraceptive) [Deblitane] 0.35 mg Tablet 0.35 mg PO DAILY RF: 0 albuterol sulfate [Ventolin HFA] 90 mcg/actuation HFA aerosol inhaler 2 puff inhalation Q4H PRN (Reason: Shortness Of Breath) RF: 0 benztropine 0.5 mg Tablet 0.5 mg PO BID PRN (Reason: EPS) 30 Days Qty: 60 RF: 0 fluoxetine 20 mg Capsule 40 mg PO DAILY 30 Days Qty: 60 RF: 0 hydroxyzine HCl 50 mg Tablet 50 mg PO QID PRN (Reason: Anxiety) 30 Days Qty: 120 RF: 0 nicotine 21 mg/24 hr Patch 24 Hour 21 mg transdermal DAILY PRN (Reason: smoking cessation) 28 Days Qty: 28 RF: 0 prazosin 1 mg Capsule 3 mg PO BEDTIME 30 Days Qty: 90 RF: 0 chlorpromazine 25 mg Tablet 50 mg PO QID 30 Days Qty: 240 RF: 0 chlorpromazine 25 mg Tablet 50 mg PO DAILY PRN (Reason: agitation) 30 Days Qty: 30 RF: 0 clonidine HCl 0.1 mg tablet 0.1 mg PO BID@0830,1430 RF: 0 ibuprofen 600 mg tablet 1 tab PO Q6H PRN (Reason: Pain (Scale Score 1-3)) RF: 0
--- NOTE | 2021-08-27 18:59 | PHA.MEDREC ---
Pharmacy Consult ? Medication Reconciliation Pharmacy has completed the medication reconciliation. Reviewed previous discharge notes and claim history. Patient took all AM and 4PM meds.
[2021-08-27 19:18] LABS: Amphetamine Screen Urine Not Detected (Not Detect); Barbiturates, Urine Not Detected (Not Detect); Benzodiazepines Screen Urine Not Detected (Not Detect); Cannabinoid Screen Urine Not Detected (Not Detect); Cocaine Screen Urine Not Detected (Not Detect); Fentanyl, urine Not Detected (Not Detect); Opiate Screen Urine Not Detected (Not Detect); Phencyclidine Screen Urine Not Detected (Not Detect)
[2021-08-27 22:04] LABS: COVID-19 Test Negative (Negative)
[2021-08-28 06:23] VITALS: BP 118/76; PULSE 98; RESP 16; TEMP 36.9; O2SAT 98
== END 2021-08-28 10:21 | disposition home or self-care (01) ==
PROVIDERS: Nurse Practitioner Family; Emergency Provider Internal Medicine; PCP Nurse Practitioner Family
DX: F33.1 Major depressive disorder, recurrent, moderate (principal); R45.851 Suicidal ideations; F41.1 Generalized anxiety disorder; F43.0 Acute stress reaction; F17.210 Nicotine dependence, cigarettes, uncomplicated; Z71.6 Tobacco abuse counseling; Z79.899 Other long term (current) drug therapy
CPT/HCPCS: 36415; 80307; 87635; 99284

== ENCOUNTER 2021-08-28 17:38 | Emergency (ER) | payer MEDICARE, MEDICAID, SELFPAY ==
[2021-08-28 17:42] VITALS: BP 146/88; PULSE 102; O2SAT 98
--- NOTE | 2021-08-28 17:47 | ED_ITS ---
HPI - Psych General Chief Complaint: Psychiatric Symptoms Stated Complaint: crisis Time Seen by Provider: 08/28/21 17:42 Source: patient and EMS Mode of arrival: EMS Limitations: no limitations History of Present Illness HPI Narrative: 45-year-old female with a past medical history of bipolar, borderline personality disorder, PTSD, anxiety, depression here with complaints of suicidal thoughts, hearing voices telling her to kill herself.? Patient tells me she has a feeling this way for the last 3 days.? Unknown trigger.? Of note patient was seen here yesterday and the day before for same.? Discharged this morning back to senior living. Today the patient broke a coffee mug and cut her left wrist, left lower leg, abdomen, neck. Sent in on section 12. Tetanus status UTD Related Data Home Medications Medication Instructions Recorded Confirmed trazodone 150 mg tablet 150 mg PO BEDTIME 01/27/21 08/28/21 polyethylene glycol 3350 17 gram 17 g PO DAILY PRN 02/12/21 08/28/21 oral powder packet (Miralax) atorvastatin 10 mg tablet 1 tab PO DAILY 05/29/21 08/28/21 ferrous sulfate 325 mg (65 mg 1 tab PO DAILY 05/29/21 08/28/21 iron) tablet,delayed release fluticasone propionate 110 2 puff INHALATION BID 05/29/21 08/28/21 mcg/actuation HFA aerosol inhaler (Flovent HFA) lisinopril 5 mg tablet 1 tab PO DAILY 05/29/21 08/28/21 metformin 500 mg tablet 1 tab PO BID 05/29/21 08/28/21 montelukast 10 mg tablet 1 tab PO BEDTIME 05/29/21 08/28/21 norethindrone (contraceptive) 0.35 0.35 mg PO DAILY 05/29/21 08/28/21 mg tablet (Deblitane) pantoprazole 40 mg tablet,delayed 1 tab PO BID@0630,1630 05/29/21 08/28/21 release verapamil 240 mg tablet,extended 1 tab PO BEDTIME 05/29/21 08/28/21 release albuterol sulfate 90 mcg/actuation 2 puff INHALATION Q4H PRN 06/15/21 08/28/21 aerosol inhaler (Ventolin HFA) clonidine HCl 0.1 mg tablet 0.1 mg PO BID@0830,1430 08/26/21 08/28/21 ibuprofen 600 mg tablet 1 tab PO Q6H PRN 08/27/21 08/28/21 Previous Rx's Medication Instructions Recorded benztropine 0.5 mg tablet 0.5 mg PO BID PRN 30 Days #60 tab 07/27/21 fluoxetine 20 mg capsule 40 mg PO DAILY 30 Days #60 cap 07/27/21 hydroxyzine HCl 50 mg tablet 50 mg PO QID PRN 30 Days #120 tab 07/27/21 nicotine 21 mg/24 hr daily 21 mg TRANSDERMAL DAILY PRN 28 07/27/21 transdermal patch Days #28 ea chlorpromazine 25 mg tablet 50 mg PO DAILY PRN 30 Days #30 tab 08/15/21 chlorpromazine 25 mg tablet 50 mg PO QID 30 Days #240 tab 08/15/21 prazosin 1 mg capsule 3 mg PO BEDTIME 30 Days #90 cap 08/15/21 Allergies Allergy/AdvReac Type Severity Reaction Status Date / Time Fish Containing Products Allergy Severe ANAPHYLAXIS Verified 08/18/21 18:18 codeine [Codeine] Allergy Unknown RASH Verified 08/18/21 18:18 Penicillins Allergy Unknown RASH Verified 08/18/21 18:18 prednisone [Prednisone] Allergy Unknown RASH Verified 08/18/21 18:18 Sulfa (Sulfonamide Allergy Unknown RASH Verified 08/18/21 18:18 Antibiotics) [Sulfa (Sulfonamides)] azithromycin [AZITHROMYCIN] AdvReac Severe RASH Verified 08/18/21 18:18 nicotine AdvReac Unknown HEART Verified 08/18/21 18:18 PALPITATION TO NICOTINE GUM Seafood Allergy Severe ANAPHYLAXIS Uncoded 07/31/21 20:43 From Geodon Allergy Unknown DYSURIA, Uncoded 07/31/21 20:43 RASH Review of Systems Review of Systems: Yes all other systems are reviewed and are negative Constitutional: Constitutional: Reports no additional constitutional complaints, Denies body ache(s), Denies chills, Denies fever(s), Denies headache(s) and Denies weakness Eyes: Eyes: Reports no additional eye complaints and Denies change in vision ENT: Reports system reviewed and no additional complaints, except as documented, Denies dizziness, Denies headache(s), Denies nasal congestion, Denies nasal discharge and Denies neck pain Cardiovascular: Cardiovascular: Reports no additional cardiovascular complaints, Denies chest pain, Denies leg edema and Denies dyspnea Respiratory: Respiratory: Reports no additional respiratory complaints, Denies cough and Denies dyspnea Gastrointestinal: Gastrointestinal: Reports no additional gastrointestinal complaints, Denies abdominal pain, Denies diarrhea, Denies nausea and Denies vomiting Genitourinary: Genitourinary: Reports no additional female genitourinary complaints and Denies urinary incontinence Musculoskeletal: Musculoskeletal: Reports no additional musculoskeletal complaints, Denies back pain, Denies arthralgias, Denies joint swelling, Denies neck pain, Denies numbness and Denies tingling Integumentary/Breasts: Skin/Breast: Reports system reviewed and no additional complaints, except as docu and Denies rash Comments: Laceration Neurologic: Reports system reviewed and no additional complaints, except as documented, Denies Abnormal speech present, Denies dizziness, Denies headache (s), Denies numbness, Denies tingling and Denies weakness PMFSH Past Medical History Attestation statement: The following information was validated with the patient. Source: old records reviewed and nursing notes reviewed Medical History Bronchitis Diabetes type 2, controlled GERD (gastroesophageal reflux disease) Hyperlipidemia MDD (major depressive disorder), recurrent episode, severe Mood disorder Overdose PTSD (post-traumatic stress disorder) Social History Social History 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: Other 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 Other:: pt lives in senior living with 3 other peers Housing: Other Housing Other:: senior living Do you presently have visiting nurse or other home services: Yes (senior living) Alcohol intake: never Patient Tobacco Use Status: Current everyday Tobacco user Tobacco use type: Cigarette Cigarette Packs Per Day: 1 Cigarettes Per Day: 20.0 Years Smoked: 20 e-Cigarette/Vaping Use: Never Used Second Hand Smoke Exposure: Yes Substance Use Type: Caffiene Advance Directives: No Advance Directives Information Provided: No Patient : No service: No Sexual orientation: Did not discuss. Physical Exam Vital Signs: Vital Signs: Last Vital Signs Temp 97.8 F 08/28/21 19:31 Pulse 87 08/28/21 19:31 Resp 18 08/28/21 19:31 BP 131/77 08/28/21 19:31 Pulse Ox 97 08/28/21 19:31 Body Mass Index 35.2 Const: General: cooperative, healthy appearing, comfortable and no acute distress Orientation/consciousness: patient oriented x3 Limitations: no limitations HENMT: Head: Yes normal to inspection Ears: hearing grossly normal bilaterally General nose exam: Normal external nose present Face and sinus: Yes normal facial exam Mouth: Normal oral and palatal mucosa present Throat: Yes posterior oropharynx normal Eyes: General: appearance normal, both eyes and all related structures Pupils: Equal, round and reactive pupils present Neck: Neck: Yes normal visual inspection Chest: Chest palpation & inspection: normal inspection of the chest Resp: Effort & Inspection: normal respiratory effort Auscultation: clear to auscultation bilaterally Cardio: Rate: regular rate Rhythm: regular rhythm Peripheral pulses: Peripheral pulses 2+ throughout GI: Inspection: Yes normal to inspection Palpation (GI): Soft to palpation and nontender Auscultation: normal bowel sounds Back/Spine/Pelvis: Thoracic/Lumbar Spine: thoracic and lumbar spine normal to inspection Skin: Other: Multiple superficial lacerations noted to the left volar wrist, left lower extremity, anterior neck and abdomen General skin exam: no rashes or lesions noted Neuro: General: patient oriented x3, no focal motor deficits and normal sensation to monofilament Cranial nerves: Yes Equal, round and reactive pupils present Cognition (Neuro): normal cognition Speech: No Abnormal speech present Gait exam (Neuro): Normal gait present Motor exam (neuro): 5/5 motor strength present throughout Extrem: General: Yes normal to inspection Course Course Course Narrative: 45-year-old female here on a Section 12 for suicidal thoughts, hearing voices and self-injury. Lacerations are superficial. Tetanus is up-to-date. Will check drug screen, COVID test, involve care team 1940-spoke to Care Team. Requesting a BHN evaluation. This was ordered. Patient is placed in physician observation pending disposition. MDM - Psych Medical Records Attestation: I reviewed the patient's medical records. Lab Data Attestation: I reviewed the patient's lab results. Discharge Plan Discharge Clinical Impression: Borderline personality disorder Prescriptions: No Action trazodone 150 mg tablet 150 mg PO BEDTIME RF: 0 polyethylene glycol 3350 [Miralax] 17 gram Powder In Packet 17 g PO DAILY PRN (Reason: Constipation) RF: 0 metformin 500 mg tablet 1 tab PO BID RF: 0 atorvastatin 10 mg tablet 1 tab PO DAILY RF: 0 pantoprazole 40 mg tablet,delayed release (DR/EC) 1 tab PO BID@0630,1630 RF: 0 verapamil 240 mg tablet extended release 1 tab PO BEDTIME RF: 0 montelukast 10 mg tablet 1 tab PO BEDTIME RF: 0 lisinopril 5 mg tablet 1 tab PO DAILY RF: 0 ferrous sulfate 325 mg (65 mg iron) tablet,delayed release (DR/EC) 1 tab PO DAILY RF: 0 Flovent HFA 110 mcg/actuation HFA aerosol inhaler 2 puff inhalation BID RF: 0 norethindrone (contraceptive) [Deblitane] 0.35 mg Tablet 0.35 mg PO DAILY RF: 0 albuterol sulfate [Ventolin HFA] 90 mcg/actuation HFA aerosol inhaler 2 puff inhalation Q4H PRN (Reason: Shortness Of Breath) RF: 0 benztropine 0.5 mg Tablet 0.5 mg PO BID PRN (Reason: EPS) 30 Days Qty: 60 RF: 0 fluoxetine 20 mg Capsule 40 mg PO DAILY 30 Days Qty: 60 RF: 0 hydroxyzine HCl 50 mg Tablet 50 mg PO QID PRN (Reason: Anxiety) 30 Days Qty: 120 RF: 0 nicotine 21 mg/24 hr Patch 24 Hour 21 mg transdermal DAILY PRN (Reason: smoking cessation) 28 Days Qty: 28 RF: 0 prazosin 1 mg Capsule 3 mg PO BEDTIME 30 Days Qty: 90 RF: 0 chlorpromazine 25 mg Tablet 50 mg PO QID 30 Days Qty: 240 RF: 0 chlorpromazine 25 mg Tablet 50 mg PO DAILY PRN (Reason: agitation) 30 Days Qty: 30 RF: 0 clonidine HCl 0.1 mg tablet 0.1 mg PO BID@0830,1430 RF: 0 ibuprofen 600 mg tablet 1 tab PO Q6H PRN (Reason: Pain (Scale Score 1-3)) RF: 0
[2021-08-28 17:49] VITALS: BP 148/69; PULSE 85; RESP 16; TEMP 36.6; O2SAT 97; BMI 35.2
--- NOTE | 2021-08-28 17:59 | MHC.CARE ---
CARE team received consult and met with pt briefly. Pt report she is scared as she endorses command AH to kill herself. Pt engaged in superficial cutting to her throat, forearm and leg. Pt appears in distress crying. She states I need to go inpatient . She explains to t/w that she doesn't hear voices in the morning it's mainly in the afternoon. Pt states she stopped her TMS tx because of a new voice and still endorses the newer voice. She continues to state she is scared but she is reassured that she is in a safe place. CARE team will refer pt to N and if [facility] does not have any clinicians available CARE team will provide care to pt. CARE team available as needed.
--- NOTE | 2021-08-28 19:16 | PHA.MEDREC ---
Pharmacy Consult ? Medication Reconciliation Pharmacy has completed the medication reconciliation. pt took all of her AM medication.
[2021-08-28 19:31] VITALS: BP 131/77; PULSE 87; RESP 18; TEMP 36.6; O2SAT 97
[2021-08-28 19:49] LABS: COVID-19 Test Negative (Negative)
[2021-08-28 20:11] LABS: Amphetamine Screen Urine Not Detected (Not Detect); Barbiturates, Urine Not Detected (Not Detect); Benzodiazepines Screen Urine Not Detected (Not Detect); Cannabinoid Screen Urine Not Detected (Not Detect); Cocaine Screen Urine Not Detected (Not Detect); Fentanyl, urine Not Detected (Not Detect); Opiate Screen Urine Not Detected (Not Detect); Phencyclidine Screen Urine Not Detected (Not Detect)
[2021-08-28 21:50] VITALS: BP 107/55; PULSE 77
[2021-08-28] MEDS: Prazosin HCL 1 MG CAPSULE 3 MG PO (21:50)
[2021-08-28 21:54] VITALS: BP 107/55; PULSE 77
[2021-08-28] MEDS: VerapamiL HCL SR 240 MG TABLET.ER PO (21:54)
[2021-08-28] MEDS: traZODone HCL 50 MG TABLET 150 MG PO (21:54)
[2021-08-28] MEDS: Montelukast Sodium 10 MG TABLET PO (21:54)
[2021-08-28] MEDS: metFORMIN HCl 500 MG TABLET PO (21:54)
[2021-08-28] MEDS: chlorproMAZINE HCl 25 MG TABLET 50 MG PO (21:55)
--- NOTE | 2021-08-28 21:57 | PC.NURSE ---
CARLOSN CALLED AND STATES INTAKE WITH SEE PT IN THE MORNING, DOES NOT KNOW EXACT TIME.
[2021-08-28 21:58] VITALS: BP 107/55; PULSE 77; RESP 18; O2SAT 98
== END 2021-08-29 00:22 | disposition home or self-care (01) ==
PROVIDERS: Nurse Practitioner Family; Emergency Provider Emergency Medicine; PCP Nurse Practitioner Family
DX: F60.3 Borderline personality disorder (principal); S61.512A Laceration without foreign body of left wrist, initial encounter; S81.812A Laceration without foreign body, left lower leg, initial encounter; S31.119A Laceration without foreign body of abdominal wall, unspecified quadrant without penetration into peritoneal cavity, initial encounter; S11.91XA Laceration without foreign body of unspecified part of neck, initial encounter; F31.9 Bipolar disorder, unspecified; F43.10 Post-traumatic stress disorder, unspecified; F41.9 Anxiety disorder, unspecified; F32.A Depression, unspecified; E11.9 Type 2 diabetes mellitus without complications; Z79.899 Other long term (current) drug therapy; X78.0XXA Intentional self-harm by sharp glass, initial encounter; Y93.9 Activity, unspecified; Y92.89 Other specified places as the place of occurrence of the external cause; Y99.9 Unspecified external cause status
CPT/HCPCS: 36415; 80307; 87635; 99284

== ENCOUNTER 2021-08-29 17:28 | Inpatient (IN) | payer MEDICARE, MEDICAID, SELFPAY ==
[2021-08-29 17:57] VITALS: BP 115/74; BP 138/80; PULSE 90; PULSE 91; RESP 16; TEMP 37.2; O2SAT 95; O2SAT 98; BMI 39.1
--- NOTE | 2021-08-29 18:00 | ED.PSYCH ---
HPI - Psych General Stated Complaint: SEC 12 SI Time Seen by Provider: 08/29/21 18:00 Source: patient, EMS and old records reviewed Mode of arrival: EMS Limitations: no limitations History of Present Illness MD complaint: suicidal ideation and feels depressed Onset (ago): week(s) (1) Duration: getting worse History of same: Yes Relieving factors: none Exacerbating factors: other (TMS treatment per her report) Associated psychiatric symptoms: depression, suicidal ideation and auditory hallucinations Associated symptoms: denies other symptoms Treatments prior to arrival: placed on mental health hold If self harm: admits thoughts of self harm and self-inflicted trauma (superficial linear abrasoins to her forearms and neck) Related Data Home Medications Medication Instructions Recorded Confirmed trazodone 150 mg tablet 150 mg PO BEDTIME 01/27/21 08/28/21 polyethylene glycol 3350 17 gram 17 g PO DAILY PRN 02/12/21 08/28/21 oral powder packet (Miralax) atorvastatin 10 mg tablet 1 tab PO DAILY 05/29/21 08/28/21 ferrous sulfate 325 mg (65 mg 1 tab PO DAILY 05/29/21 08/28/21 iron) tablet,delayed release fluticasone propionate 110 2 puff INHALATION BID 05/29/21 08/28/21 mcg/actuation HFA aerosol inhaler (Flovent HFA) lisinopril 5 mg tablet 1 tab PO DAILY 05/29/21 08/28/21 metformin 500 mg tablet 1 tab PO BID 05/29/21 08/28/21 montelukast 10 mg tablet 1 tab PO BEDTIME 05/29/21 08/28/21 norethindrone (contraceptive) 0.35 0.35 mg PO DAILY 05/29/21 08/28/21 mg tablet (Deblitane) pantoprazole 40 mg tablet,delayed 1 tab PO BID@0630,1630 05/29/21 08/28/21 release verapamil 240 mg tablet,extended 1 tab PO BEDTIME 05/29/21 08/28/21 release albuterol sulfate 90 mcg/actuation 2 puff INHALATION Q4H PRN 06/15/21 08/28/21 aerosol inhaler (Ventolin HFA) clonidine HCl 0.1 mg tablet 0.1 mg PO BID@0830,1430 08/26/21 08/28/21 ibuprofen 600 mg tablet 1 tab PO Q6H PRN 08/27/21 08/28/21 Previous Rx's Medication Instructions Recorded benztropine 0.5 mg tablet 0.5 mg PO BID PRN 30 Days #60 tab 07/27/21 fluoxetine 20 mg capsule 40 mg PO DAILY 30 Days #60 cap 07/27/21 hydroxyzine HCl 50 mg tablet 50 mg PO QID PRN 30 Days #120 tab 07/27/21 nicotine 21 mg/24 hr daily 21 mg TRANSDERMAL DAILY PRN 28 07/27/21 transdermal patch Days #28 ea chlorpromazine 25 mg tablet 50 mg PO DAILY PRN 30 Days #30 tab 08/15/21 chlorpromazine 25 mg tablet 50 mg PO QID 30 Days #240 tab 08/15/21 prazosin 1 mg capsule 3 mg PO BEDTIME 30 Days #90 cap 08/15/21 Allergies Allergy/AdvReac Type Severity Reaction Status Date / Time Fish Containing Products Allergy Severe ANAPHYLAXIS Verified 08/18/21 18:18 codeine [Codeine] Allergy Unknown RASH Verified 08/18/21 18:18 Penicillins Allergy Unknown RASH Verified 08/18/21 18:18 prednisone [Prednisone] Allergy Unknown RASH Verified 08/18/21 18:18 Sulfa (Sulfonamide Allergy Unknown RASH Verified 08/18/21 18:18 Antibiotics) [Sulfa (Sulfonamides)] azithromycin [AZITHROMYCIN] AdvReac Severe RASH Verified 08/18/21 18:18 nicotine AdvReac Unknown HEART Verified 08/18/21 18:18 PALPITATION TO NICOTINE GUM Seafood Allergy Severe ANAPHYLAXIS Uncoded 07/31/21 20:43 From Geodon Allergy Unknown DYSURIA, Uncoded 07/31/21 20:43 RASH Review of Systems Review of Systems: Constitutional : No Fever, No Chills ENT/Mouth : No Ear Pain, No Nasal Congestion, No sore throat Eyes: No Eye Pain, No Swelling, No Redness Cardiovascular : No Chest Pain, No SOB Respiratory : No Cough, No Sputum, No Dyspnea Gastrointestinal : No Nausea, No Vomiting, No Diarrhea, No Hematochezia, No Melena Genitourinary : No Dysuria, No Urinary Frequency, No Hematuria Musculoskeletal : No Myalgias Skin : No Skin Lesions, No rash, pos abrasions Neuro : No Weakness, No Numbness, No Paresthesias, No Dizziness, No Headache Psych : positive Anxiety, positive Depression, positive SI no HI Heme/Lymph: No Lymphadenopathy Endocrine : No Polyuria, No Polydipsia All other systems reviewed and are negative [facility] Past Medical History Attestation statement: The following information was validated with the patient. Medical History Bronchitis Diabetes type 2, controlled GERD (gastroesophageal reflux disease) Hyperlipidemia MDD (major depressive disorder), recurrent episode, severe Mood disorder Overdose PTSD (post-traumatic stress disorder) Social History Social History 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: Other 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 Other:: pt lives in nursing home with 3 other peers Housing: Other Housing Other:: nursing home Do you presently have visiting nurse or other home services: Yes (nursing home) Alcohol intake: never Patient Tobacco Use Status: Current everyday Tobacco user Tobacco use type: Cigarette Cigarette Packs Per Day: 1 Cigarettes Per Day: 20.0 Years Smoked: 20 e-Cigarette/Vaping Use: Never Used Second Hand Smoke Exposure: Yes Substance Use Type: Caffiene Advance Directives: No Advance Directives Information Provided: Yes service: No Sexual orientation: Did not discuss. Physical Exam Vital Signs: Appearance: Alert. Oriented X3. No acute distress. Eyes: Pupils equal, round and reactive to light. ENT: Pharynx normal. Neck: Normal inspection. Neck supple. superficial linear abrasions across the neck CVS: Normal heart rate and rhythm. Pulses normal. Respiratory: No respiratory distress. Breath sounds normal. Abdomen: Soft and nontender. Skin: Skin warm and dry. Normal skin color. bilateral forearm linear abrasions noted Extremities: No lower extremity edema. Neuro: Oriented X 3. No motor deficit. No sensory deficit. Cn2-12 intact Psych: calm, depressed, states she hears a voice telling her to hurt herself, pos SI MDM - Psych MDM Narrative Medical decision making narrative: 45 yo female with hx of PTSD and other issues here with c/o SI and hearing voices - at this time she is community bed search labs and COVID swab ordered, suspect she will be admitted here Discharge Plan Discharge Clinical Impression: PTSD (post-traumatic stress disorder) Patient Disposition: Admitted As Inpatient Prescriptions: No Action trazodone 150 mg tablet 150 mg PO BEDTIME RF: 0 polyethylene glycol 3350 [Miralax] 17 gram Powder In Packet 17 g PO DAILY PRN (Reason: Constipation) RF: 0 metformin 500 mg tablet 1 tab PO BID RF: 0 atorvastatin 10 mg tablet 1 tab PO DAILY RF: 0 pantoprazole 40 mg tablet,delayed release (DR/EC) 1 tab PO BID@0630,1630 RF: 0 verapamil 240 mg tablet extended release 1 tab PO BEDTIME RF: 0 montelukast 10 mg tablet 1 tab PO BEDTIME RF: 0 lisinopril 5 mg tablet 1 tab PO DAILY RF: 0 ferrous sulfate 325 mg (65 mg iron) tablet,delayed release (DR/EC) 1 tab PO DAILY RF: 0 Flovent HFA 110 mcg/actuation HFA aerosol inhaler 2 puff inhalation BID RF: 0 norethindrone (contraceptive) [Deblitane] 0.35 mg Tablet 0.35 mg PO DAILY RF: 0 albuterol sulfate [Ventolin HFA] 90 mcg/actuation HFA aerosol inhaler 2 puff inhalation Q4H PRN (Reason: Shortness Of Breath) RF: 0 benztropine 0.5 mg Tablet 0.5 mg PO BID PRN (Reason: EPS) 30 Days Qty: 60 RF: 0 fluoxetine 20 mg Capsule 40 mg PO DAILY 30 Days Qty: 60 RF: 0 hydroxyzine HCl 50 mg Tablet 50 mg PO QID PRN (Reason: Anxiety) 30 Days Qty: 120 RF: 0 nicotine 21 mg/24 hr Patch 24 Hour 21 mg transdermal DAILY PRN (Reason: smoking cessation) 28 Days Qty: 28 RF: 0 prazosin 1 mg Capsule 3 mg PO BEDTIME 30 Days Qty: 90 RF: 0 chlorpromazine 25 mg Tablet 50 mg PO QID 30 Days Qty: 240 RF: 0 chlorpromazine 25 mg Tablet 50 mg PO DAILY PRN (Reason: agitation) 30 Days Qty: 30 RF: 0 clonidine HCl 0.1 mg tablet 0.1 mg PO BID@0830,1430 RF: 0 ibuprofen 600 mg tablet 1 tab PO Q6H PRN (Reason: Pain (Scale Score 1-3)) RF: 0
--- NOTE | 2021-08-29 18:33 | MHC.CARE ---
Pt seen in the community by Matty and arrived to ED as a Sect 12 bedsearch. She will be admitted to [facility] this evening.
[2021-08-29 18:59] LABS: Eosinophils Absolute Auto 0.2 X10*3/uL (0.0-0.4); MANUAL DIFF FLAG SCAN; PLT CLUMP 1; SCAN SMEAR FLAG 1
[2021-08-29 19:01] LABS: Basophils Percent Auto 0.3 % (0-2); Eosinophils Percent Auto 2.8 % (0-4); Hematocrit 35.2 % (37.0-47.0); Hemoglobin 11.5 g/dl (12.0-16.0); Imm Gran Abs Auto 0.02 X10*3/uL (0.00-0.03); Imm Gran Pct Auto 0.3 % (0.0-0.4); Lymphocytes Absolute Auto 1.7 X10*3/uL (1.2-4.9); Lymphocytes Percent Auto 24.2 % (20-40); Mean Corpuscular HGB Conc 32.7 g/dl (31.0-35.0); Mean Corpuscular Hemoglobin 30.3 pg (27.0-33.0); Mean Corpuscular Volume 92.9 fL (80.0-98.0); Mean Platelet Volume 10.2 fL (9.4-12.3); Monocytes Absolute Auto 0.4 X10*3/uL (0.1-1.2); Monocytes Percent Auto 5.6 % (2-11); Neutrophils Absolute Auto 4.6 x10*3/uL (2.0-8.3); Neutrophils Percent Auto 66.8 % (45-73); Platelet Count 101 X10*3/uL (160-400); Red Blood Count 3.79 X10*6/uL (4.20-5.50); White Blood Count 6.8 X10*3/uL (4.8-10.8)
--- NOTE | 2021-08-29 19:01 | PHA.MEDREC ---
Pharmacy Consult ? Medication Reconciliation Pharmacy has completed the medication reconciliation.
[2021-08-29 19:02] LABS: UPreg QC Valid YES; Urine Pregnancy NEGATIVE (NEGATIVE)
[2021-08-29 19:13] LABS: COVID-19 Test Negative (Negative)
[2021-08-29 19:17] LABS: Alanine Aminotransferase 13 U/L (0-31); Albumin Level 3.8 g/dL (3.5-5.0); Alkaline Phosphatase 84 U/L (39-117); Anion Gap 17 (12-20); Aspartate Amino Transferase 16 U/L (5-31); Bilirubin Direct < 0.2 mg/dL (0.0-0.5); Bilirubin Total 0.3 mg/dL (0.0-1.0); Blood Urea Nitrogen 10 mg/dL (9-16); Calcium 8.4 mg/dL (8.4-10.2); Carbon Dioxide 17 mmol/L (22-29); Chloride 103 mmol/L (96-108); Creatinine Clr Calc Pharmacy 109.7; Estimated Glomerular Filt Rate > 60; Glucose Random 222 mg/dL (60-115); Potassium 3.8 mmol/L (3.3-5.1); Sodium 133 mmol/L (135-145); Total Protein 6.2 g/dL (6.5-8.0)
[2021-08-29 19:17] LABS: Amphetamine Screen Urine Not Detected (Not Detect); Barbiturates, Urine Not Detected (Not Detect); Benzodiazepines Screen Urine Not Detected (Not Detect); Cannabinoid Screen Urine Not Detected (Not Detect); Cocaine Screen Urine Not Detected (Not Detect); Fentanyl, urine Not Detected (Not Detect); Opiate Screen Urine Not Detected (Not Detect); Phencyclidine Screen Urine Not Detected (Not Detect)
[2021-08-29 19:23] LABS: SLIDE REVIEW VERIFIED
[2021-08-29 22:11] VITALS: BP 109/74; PULSE 73; RESP 18; TEMP 36.7; O2SAT 96
[2021-08-29] MEDS: traZODone HCL 50 MG TABLET 150 MG PO (22:39)
[2021-08-29 22:40] VITALS: BP 109/74; PULSE 73
[2021-08-29] MEDS: VerapamiL HCL SR 240 MG TABLET.ER PO (22:40)
[2021-08-29] MEDS: chlorproMAZINE HCl 25 MG TABLET 50 MG PO (22:40)
[2021-08-29] MEDS: Montelukast Sodium 10 MG TABLET PO (22:40)
[2021-08-29] MEDS: metFORMIN HCl 500 MG TABLET PO (22:40)
[2021-08-29 22:41] VITALS: BP 109/74; PULSE 73
[2021-08-29] MEDS: Prazosin HCL 1 MG CAPSULE 3 MG PO (22:41)
[2021-08-29 23:28] VITALS: BP 105/57; PULSE 73; RESP 17; TEMP 36.5; O2SAT 95
[2021-08-29 23:57] VITALS: BP 95/57; PULSE 94; RESP 18; TEMP 36.2; O2SAT 97; BMI 35.5
[2021-08-30] VITALS (7 sets, daily range): BP systolic 92–117; BP diastolic 50–74; PULSE 72–87; RESP 16–18; TEMP 36.3–36.4; O2SAT 87–98
--- NOTE | 2021-08-30 01:17 | PC.ADMIT ---
Pt admitted from [facility] ED with c/o PTSD, SI, depression, and auditory hallucinations that, tell her, to kill and hurt myself, per pt. CV signed/obtained. Placed on 15 minute checks. Pt has superficial lacerations on bilat forearms, prominently on the left forearm, as well as neck where pt stated she used glass to cut herself. Pt self reports superficial cuts on abdomen and thighs. Pt declined physical assessment, so RN has not visualized. Pt reports med compliance but states meds not working right now.
[2021-08-30] MEDS: Omeprazole 20 MG CAPSULE.DR PO ×2 (06:13→16:18)
[2021-08-30] MEDS: chlorproMAZINE HCl 25 MG TABLET 50 MG PO ×4 (09:05→21:35)
[2021-08-30] MEDS: lisinopriL 5 MG TABLET PO (09:05)
[2021-08-30] MEDS: FLUoxetine HCl 20 MG CAPSULE 40 MG PO (09:05)
[2021-08-30] MEDS: metFORMIN HCl 500 MG TABLET PO ×2 (09:05→21:34)
[2021-08-30] MEDS: cloNIDine HCL 0.1 MG TABLET PO ×2 (09:06→15:00)
[2021-08-30] MEDS: Ferrous Sulfate 324 MG TABLET.DR PO (09:06)
[2021-08-30 09:17] LABS: Magnesium 1.9 mg/dL (1.6-2.6)
[2021-08-30 09:38] LABS: Free T4 (Free Thyroxine) 1.07 ng/dL (0.71-1.85); Thyroid Stimulating Hormone 1.08 uIU/mL (0.32-4.0)
[2021-08-30 09:52] LABS: Folate 14.6 ng/mL (> or = 4.0); Vitamin B12 495 pg/mL (200-900)
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
[2021-08-30] MEDS: traZODone HCL 50 MG TABLET 150 MG PO (21:32)
[2021-08-30] MEDS: Prazosin HCL 1 MG CAPSULE 3 MG PO (21:32)
[2021-08-30] MEDS: VerapamiL HCL SR 240 MG TABLET.ER PO (21:33)
[2021-08-30] MEDS: Atorvastatin Calcium 10 MG TABLET PO (21:34)
[2021-08-30] MEDS: Montelukast Sodium 10 MG TABLET PO (21:34)
[2021-08-30] MEDS: Fluticasone Propionate 100 MCG BLST.W.DEV 2 PUFF INHALE (21:41)
[2021-08-31 06:00] VITALS: BP 101/61; PULSE 80; TEMP 36.2; O2SAT 95
[2021-08-31] MEDS: Omeprazole 20 MG CAPSULE.DR PO ×2 (06:49→16:44)
[2021-08-31] MEDS: metFORMIN HCl 500 MG TABLET PO ×2 (08:34→21:26)
[2021-08-31] MEDS: chlorproMAZINE HCl 25 MG TABLET 50 MG PO ×4 (08:34→21:24)
[2021-08-31] MEDS: cloNIDine HCL 0.1 MG TABLET PO ×2 (08:34→14:02)
[2021-08-31] MEDS: Fluticasone Propionate 100 MCG BLST.W.DEV 2 PUFF INHALE ×2 (08:34→21:26)
[2021-08-31] MEDS: lisinopriL 5 MG TABLET PO (08:35)
[2021-08-31] MEDS: FLUoxetine HCl 20 MG CAPSULE 60 MG PO (08:35)
[2021-08-31] MEDS: Ferrous Sulfate 324 MG TABLET.DR PO (08:35)
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
[2021-08-31 13:56] VITALS: BP 114/77; PULSE 70; RESP 16
[2021-08-31 14:02] VITALS: BP 114/77; PULSE 70
[2021-08-31] MEDS: Throat Lozenge, Medicated LOZENGE 1 LOZENGE MUCOUS MEM ×3 (14:02→21:26)
[2021-08-31 18:00] VITALS: BP 128/68; PULSE 77; TEMP 36.3
[2021-08-31 21:23] VITALS: BP 128/63; PULSE 77
[2021-08-31] MEDS: VerapamiL HCL SR 240 MG TABLET.ER PO (21:23)
[2021-08-31 21:24] VITALS: BP 128/68; PULSE 77
[2021-08-31] MEDS: Prazosin HCL 1 MG CAPSULE 3 MG PO (21:24)
[2021-08-31] MEDS: traZODone HCL 50 MG TABLET 150 MG PO (21:25)
[2021-08-31] MEDS: Montelukast Sodium 10 MG TABLET PO (21:25)
[2021-08-31] MEDS: Atorvastatin Calcium 10 MG TABLET PO (21:44)
[2021-09-01 07:00] VITALS: BMI 35.2
[2021-09-01 08:10] VITALS: BP 113/71; PULSE 102
[2021-09-01] MEDS: FLUoxetine HCl 20 MG CAPSULE 60 MG PO (08:10)
[2021-09-01] MEDS: lisinopriL 5 MG TABLET PO (08:10)
[2021-09-01] MEDS: Ferrous Sulfate 324 MG TABLET.DR PO (08:10)
[2021-09-01] MEDS: chlorproMAZINE HCl 25 MG TABLET 50 MG PO ×5 (08:10→20:59)
[2021-09-01] MEDS: Omeprazole 20 MG CAPSULE.DR PO ×2 (08:10→15:54)
[2021-09-01] MEDS: metFORMIN HCl 500 MG TABLET PO ×2 (08:10→20:40)
[2021-09-01] MEDS: Fluticasone Propionate 100 MCG BLST.W.DEV 2 PUFF INHALE ×2 (08:10→20:40)
[2021-09-01] MEDS: Throat Lozenge, Medicated LOZENGE 1 LOZENGE MUCOUS MEM ×2 (08:14→15:56)
[2021-09-01] MEDS: cloNIDine HCL 0.1 MG TABLET PO ×2 (08:27→13:52)
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
[2021-09-01] MEDS: clonazePAM 0.5 MG TABLET 0.25 MG PO (11:52)
[2021-09-01 13:52] VITALS: BP 114/67; PULSE 106
[2021-09-01] MEDS: hydrOXYzine HCL 50 MG TABLET PO (18:38)
[2021-09-01 20:40] VITALS: BP 124/85; PULSE 81
[2021-09-01] MEDS: Prazosin HCL 1 MG CAPSULE 3 MG PO (20:40)
[2021-09-01] MEDS: Atorvastatin Calcium 10 MG TABLET PO (20:40)
[2021-09-01] MEDS: VerapamiL HCL SR 240 MG TABLET.ER PO (20:40)
[2021-09-01] MEDS: traZODone HCL 50 MG TABLET 150 MG PO (20:41)
[2021-09-01] MEDS: Montelukast Sodium 10 MG TABLET PO (20:41)
[2021-09-01 20:51] VITALS: BP 124/85; PULSE 81; RESP 18; TEMP 36.6; O2SAT 95
[2021-09-02] MEDS: hydrOXYzine HCL 50 MG TABLET PO ×4 (05:15→19:14)
[2021-09-02 05:17] VITALS: BP 131/80; PULSE 100; RESP 17; TEMP 36.1; O2SAT 97
[2021-09-02] MEDS: Omeprazole 20 MG CAPSULE.DR PO ×2 (07:13→16:56)
[2021-09-02] MEDS: FLUoxetine HCl 20 MG CAPSULE 60 MG PO (09:07)
[2021-09-02] MEDS: chlorproMAZINE HCl 25 MG TABLET 50 MG PO ×5 (09:07→23:46)
[2021-09-02] MEDS: Ferrous Sulfate 324 MG TABLET.DR PO (09:07)
[2021-09-02] MEDS: Fluticasone Propionate 100 MCG BLST.W.DEV 2 PUFF INHALE ×2 (09:07→20:15)
[2021-09-02 09:08] VITALS: BP 135/78; PULSE 95
[2021-09-02] MEDS: lisinopriL 5 MG TABLET PO (09:08)
[2021-09-02] MEDS: cloNIDine HCL 0.1 MG TABLET PO ×2 (09:08→14:07)
[2021-09-02] MEDS: metFORMIN HCl 500 MG TABLET PO ×2 (09:08→20:14)
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
[2021-09-02 14:07] VITALS: BP 123/78; PULSE 95
[2021-09-02] MEDS: clonazePAM 0.5 MG TABLET 0.25 MG PO ×2 (14:07→20:13)
[2021-09-02] MEDS: Nicotine 21 MG PATCH.TD24 TRANSDERMA (14:52)
[2021-09-02] MEDS: traZODone HCL 50 MG TABLET 150 MG PO (20:12)
[2021-09-02 20:14] VITALS: BP 109/76; PULSE 91
[2021-09-02] MEDS: Prazosin HCL 1 MG CAPSULE 3 MG PO (20:14)
[2021-09-02] MEDS: Atorvastatin Calcium 10 MG TABLET PO (20:14)
[2021-09-02] MEDS: Montelukast Sodium 10 MG TABLET PO (20:14)
[2021-09-02] MEDS: VerapamiL HCL SR 240 MG TABLET.ER PO (20:15)
[2021-09-02 20:25] VITALS: BP 109/76; PULSE 91; RESP 18; TEMP 36.4; O2SAT 98
[2021-09-03] MEDS: traZODone HCL 50 MG TABLET PO (00:34)
[2021-09-03] MEDS: Omeprazole 20 MG CAPSULE.DR PO ×2 (04:47→17:05)
[2021-09-03 06:00] VITALS: BP 89/59; PULSE 108; RESP 16
[2021-09-03 08:36] VITALS: BP 89/59; PULSE 108
[2021-09-03] MEDS: FLUoxetine HCl 20 MG CAPSULE 60 MG PO (08:43)
[2021-09-03] MEDS: Ferrous Sulfate 324 MG TABLET.DR PO (08:43)
[2021-09-03] MEDS: Fluticasone Propionate 100 MCG BLST.W.DEV 2 PUFF INHALE ×2 (08:43→21:57)
[2021-09-03] MEDS: chlorproMAZINE HCl 25 MG TABLET 50 MG PO ×4 (08:43→21:37)
[2021-09-03] MEDS: metFORMIN HCl 500 MG TABLET PO ×2 (08:43→21:39)
[2021-09-03] MEDS: clonazePAM 0.5 MG TABLET 0.25 MG PO ×3 (08:44→21:38)
[2021-09-03] MEDS: Nicotine 21 MG PATCH.TD24 TRANSDERMA (08:54)
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
[2021-09-03 14:31] VITALS: BP 105/55; PULSE 92
[2021-09-03] MEDS: cloNIDine HCL 0.1 MG TABLET PO (14:31)
[2021-09-03 18:00] VITALS: BP 115/70; PULSE 84
[2021-09-03 21:37] VITALS: BP 115/70; PULSE 84
[2021-09-03] MEDS: Prazosin HCL 1 MG CAPSULE 3 MG PO (21:37)
[2021-09-03] MEDS: Atorvastatin Calcium 10 MG TABLET PO (21:39)
[2021-09-03] MEDS: Montelukast Sodium 10 MG TABLET PO (21:39)
[2021-09-03] MEDS: VerapamiL HCL SR 240 MG TABLET.ER PO (21:39)
[2021-09-03] MEDS: traZODone HCL 50 MG TABLET 150 MG PO (21:39)
[2021-09-04 09:14] VITALS: BP 127/59; PULSE 83; RESP 16
[2021-09-04] MEDS: Omeprazole 20 MG CAPSULE.DR PO ×2 (09:17→16:42)
[2021-09-04] MEDS: Ferrous Sulfate 324 MG TABLET.DR PO (09:17)
[2021-09-04] MEDS: cloNIDine HCL 0.1 MG TABLET PO ×2 (09:18→14:54)
[2021-09-04] MEDS: FLUoxetine HCl 20 MG CAPSULE 60 MG PO (09:18)
[2021-09-04] MEDS: clonazePAM 0.5 MG TABLET 0.25 MG PO ×3 (09:19→21:26)
[2021-09-04] MEDS: lisinopriL 5 MG TABLET PO (09:19)
[2021-09-04] MEDS: metFORMIN HCl 500 MG TABLET PO ×2 (09:19→21:31)
[2021-09-04] MEDS: chlorproMAZINE HCl 25 MG TABLET 50 MG PO ×4 (09:19→21:29)
[2021-09-04] MEDS: Fluticasone Propionate 100 MCG BLST.W.DEV 2 PUFF INHALE ×2 (09:20→21:35)
[2021-09-04 14:50] VITALS: BP 109/55; PULSE 77
[2021-09-04 18:00] VITALS: BP 125/69; PULSE 98; RESP 16; TEMP 36.3; O2SAT 98
[2021-09-04] MEDS: traZODone HCL 50 MG TABLET 150 MG PO (21:30)
[2021-09-04] MEDS: Atorvastatin Calcium 10 MG TABLET PO (21:30)
[2021-09-04 21:31] VITALS: BP 125/68; PULSE 98
[2021-09-04] MEDS: Montelukast Sodium 10 MG TABLET PO (21:31)
[2021-09-04] MEDS: VerapamiL HCL SR 240 MG TABLET.ER PO (21:31)
[2021-09-04 21:33] VITALS: BP 125/68; PULSE 98
[2021-09-04] MEDS: Prazosin HCL 1 MG CAPSULE 3 MG PO (21:33)
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
[2021-09-05 06:24] VITALS: BP 90/57; PULSE 58; RESP 18; TEMP 36.3; O2SAT 95
[2021-09-05] MEDS: Omeprazole 20 MG CAPSULE.DR PO ×2 (06:24→17:01)
[2021-09-05] MEDS: Fluticasone Propionate 100 MCG BLST.W.DEV 2 PUFF INHALE ×2 (08:19→20:56)
[2021-09-05] MEDS: Ferrous Sulfate 324 MG TABLET.DR PO (08:21)
[2021-09-05] MEDS: FLUoxetine HCl 20 MG CAPSULE 60 MG PO (08:21)
[2021-09-05] MEDS: metFORMIN HCl 500 MG TABLET PO ×2 (08:21→20:59)
[2021-09-05] MEDS: clonazePAM 0.5 MG TABLET 0.25 MG PO ×3 (08:23→20:58)
[2021-09-05 08:27] VITALS: BP 89/54; PULSE 95
[2021-09-05 08:34] VITALS: BP 89/54; PULSE 95
[2021-09-05] MEDS: chlorproMAZINE HCl 25 MG TABLET 50 MG PO ×4 (08:34→20:59)
[2021-09-05] MEDS: Nicotine 21 MG PATCH.TD24 TRANSDERMA (08:36)
[2021-09-05 08:51] LABS: Creatinine Clr Calc Pharmacy 112.4; Estimated Glomerular Filt Rate > 60
[2021-09-05 14:45] VITALS: BP 126/63; PULSE 88
[2021-09-05] MEDS: cloNIDine HCL 0.1 MG TABLET PO (14:45)
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
[2021-09-05] MEDS: hydrOXYzine HCL 50 MG TABLET PO (17:01)
[2021-09-05 18:00] VITALS: BP 140/97; PULSE 79; RESP 18; TEMP 36.3; O2SAT 97
[2021-09-05 20:57] VITALS: BP 140/97; PULSE 79
[2021-09-05] MEDS: traZODone HCL 50 MG TABLET 150 MG PO (20:57)
[2021-09-05] MEDS: VerapamiL HCL SR 240 MG TABLET.ER PO (20:57)
[2021-09-05] MEDS: Montelukast Sodium 10 MG TABLET PO (20:58)
[2021-09-05] MEDS: Prazosin HCL 1 MG CAPSULE 3 MG PO (20:59)
[2021-09-05] MEDS: Atorvastatin Calcium 10 MG TABLET PO (20:59)
[2021-09-06] MEDS: Omeprazole 20 MG CAPSULE.DR PO (06:29)
[2021-09-06 06:30] VITALS: BP 119/83; PULSE 82; RESP 18; TEMP 36.4; O2SAT 95
[2021-09-06 08:36] VITALS: BP 108/71; PULSE 95; RESP 16
[2021-09-06 08:37] VITALS: BP 108/71
[2021-09-06] MEDS: FLUoxetine HCl 20 MG CAPSULE 60 MG PO (08:37)
[2021-09-06] MEDS: lisinopriL 5 MG TABLET PO (08:37)
[2021-09-06] MEDS: Fluticasone Propionate 100 MCG BLST.W.DEV 2 PUFF INHALE (08:37)
[2021-09-06] MEDS: cloNIDine HCL 0.1 MG TABLET PO (08:37)
[2021-09-06] MEDS: Ferrous Sulfate 324 MG TABLET.DR PO (08:37)
[2021-09-06] MEDS: clonazePAM 0.5 MG TABLET 0.25 MG PO (08:38)
[2021-09-06] MEDS: chlorproMAZINE HCl 25 MG TABLET 50 MG PO (08:38)
[2021-09-06] MEDS: metFORMIN HCl 500 MG TABLET PO (08:38)
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
== END 2021-09-06 12:05 | disposition home or self-care (01) | DRG 885 ==
LOC: HO.ED 18:09 → HO.PM5 23:31
PROVIDERS: Admitting Provider Registered Nurse; Emergency Provider Emergency Medicine; PCP Nurse Practitioner Family; Visit Provider Psychiatry & Neurology Psychiatry
DX: F33.2 Major depressive disorder, recurrent severe without psychotic features (principal); R45.851 Suicidal ideations; K21.9 Gastro-esophageal reflux disease without esophagitis; E78.5 Hyperlipidemia, unspecified; F43.10 Post-traumatic stress disorder, unspecified; E11.9 Type 2 diabetes mellitus without complications; F17.210 Nicotine dependence, cigarettes, uncomplicated; Z20.822 Contact with and (suspected) exposure to COVID-19; Z71.6 Tobacco abuse counseling; Z88.0 Allergy status to penicillin; Z88.5 Allergy status to narcotic agent; Z91.51 Personal history of suicidal behavior; Z79.1 Long term (current) use of non-steroidal anti-inflammatories (NSAID); Z79.3 Long term (current) use of hormonal contraceptives; Z79.84 Long term (current) use of oral hypoglycemic drugs; Z79.899 Other long term (current) drug therapy
CPT/HCPCS: 36415; 80048; 80076; 80307; 81025; 82565; 82607; 82746; 83735; 84439; 84443; 85025; 87635; 99284; 99285

== ENCOUNTER 2021-09-17 18:22 | Emergency (ER) | payer MEDICARE, MEDICAID, SELFPAY ==
--- NOTE | 2021-09-17 18:42 | ED_ITS ---
HPI - Psych General Chief Complaint: Psychiatric Symptoms <TIMI Cruz - Last Filed: 09/17/21 21:18> Stated Complaint: crisis <TIMI Cruz Last Filed: 09/17/21 21:18> Time Seen by Provider: 09/17/21 18:42 <TIMI Cruz Last Filed: 09/17/21 21:18> Source: patient <TIMI Cruz - Last Filed: 09/17/21 21:18> Mode of arrival: ambulatory <TIMI Cruz Last Filed: 09/17/21 21:18> Limitations: no limitations <TIMI Cruz Last Filed: 09/17/21 21:18> History of Present Illness HPI Narrative: 45-year-old female past medical history significant for borderline personality disorder, depression, anxiety, bipolar 2 with melancholic features, PTSD, DM, GERD presents to the ED with suicidal idiation and auditory hallucinations X2 days. Patient tells me that she is hearing voices that are telling her to kill herself, and cut her wrist. She tells me she wants to slit her throat and I. She also tells me that she has been sad lately, but does not elaborate on what is making her upset. She tells me that she is not having tactile hallucinations. She denies drug use, alcohol use she tells me she is a current daily smoker. Patient denies any medical complaints at this time. She denies chest pain, shortness of breath, fevers, chills, nausea, vomiting, diarrhea, abdominal pain. <TIMI Cruz - Last Filed: 09/17/21 21:18> MD complaint: suicidal ideation, feels depressed and anxiety <TIMI Cruz Last Filed: 09/17/21 21:18> Onset (ago): day(s) (2) <TIMI Cruz - Last Filed: 09/17/21 21:18> Duration: constant <TIMI Cruz Last Filed: 09/17/21 21:18> History of same: Yes <TIMI Cruz Last Filed: 09/17/21 21:18> Relieving factors: none <TIMI Cruz - Last Filed: 09/17/21 21:18> Exacerbating factors: none <TIMI Cruz - Last Filed: 09/17/21 21:18> Associated psychiatric symptoms: none <TIMI Cruz - Last Filed: 09/17/21 21:18> Associated symptoms: denies other symptoms <TIMI Cruz - Last Filed: 09/17/21 21:18> Treatments prior to arrival: none <TIMI Cruz - Last Filed: 09/17/21 21:18> If self harm: admits thoughts of self harm and has plan (cut her self and ) <TIMI Cruz - Last Filed: 09/17/21 21:18> Related Data Home Medications: Home Medications Medication Instructions Recorded Confirmed trazodone 150 mg tablet 150 mg PO BEDTIME 01/27/21 09/17/21 polyethylene glycol 3350 17 gram 17 g PO DAILY PRN 02/12/21 09/17/21 oral powder packet (Miralax) atorvastatin 10 mg tablet 1 tab PO DAILY 05/29/21 09/17/21 ferrous sulfate 325 mg (65 mg 1 tab PO DAILY 05/29/21 09/17/21 iron) tablet,delayed release fluticasone propionate 110 2 puff INHALATION BID 05/29/21 09/17/21 mcg/actuation HFA aerosol inhaler (Flovent HFA) lisinopril 5 mg tablet 1 tab PO DAILY 05/29/21 09/17/21 metformin 500 mg tablet 1 tab PO BID 05/29/21 09/17/21 montelukast 10 mg tablet 1 tab PO BEDTIME 05/29/21 09/17/21 norethindrone (contraceptive) 0.35 0.35 mg PO DAILY 05/29/21 09/17/21 mg tablet (Deblitane) pantoprazole 40 mg tablet,delayed 1 tab PO BID@0630,1630 05/29/21 09/17/21 release verapamil 240 mg tablet,extended 1 tab PO BEDTIME 05/29/21 09/17/21 release albuterol sulfate 90 mcg/actuation 2 puff INHALATION Q4H PRN 06/15/21 09/17/21 aerosol inhaler (Ventolin HFA) clonidine HCl 0.1 mg tablet 0.1 mg PO BID@0830,1430 08/26/21 09/17/21 ibuprofen 600 mg tablet 1 tab PO Q6H PRN 08/27/21 09/17/21 Previous Rx's Medication Instructions Recorded benztropine 0.5 mg tablet 0.5 mg PO BID PRN 30 Days #60 tab 07/27/21 hydroxyzine HCl 50 mg tablet 50 mg PO QID PRN 30 Days #120 tab 07/27/21 chlorpromazine 25 mg tablet 50 mg PO DAILY PRN 30 Days #30 tab 08/15/21 chlorpromazine 25 mg tablet 50 mg PO QID 30 Days #240 tab 08/15/21 clonazepam 0.5 mg tablet 0.25 mg PO QID PRN 30 Days #60 tab 09/06/21 fluoxetine 20 mg capsule 60 mg PO DAILY 30 Days #90 cap 09/06/21 nicotine 21 mg/24 hr daily 21 mg TRANSDERMAL DAILY PRN 28 09/06/21 transdermal patch Days #28 ea prazosin 1 mg capsule 3 mg PO BEDTIME 30 Days #90 cap 09/06/21 <TIMI Cruz - Last Filed: 09/17/21 21:18> Allergies/Adverse Reactions: Allergies Allergy/AdvReac Type Severity Reaction Status Date / Time Fish Containing Products Allergy Severe ANAPHYLAXIS Verified 08/18/21 18:18 codeine [Codeine] Allergy Unknown RASH Verified 08/18/21 18:18 Penicillins Allergy Unknown RASH Verified 08/18/21 18:18 prednisone [Prednisone] Allergy Unknown RASH Verified 08/18/21 18:18 Sulfa (Sulfonamide Allergy Unknown RASH Verified 08/18/21 18:18 Antibiotics) [Sulfa (Sulfonamides)] azithromycin [AZITHROMYCIN] AdvReac Severe RASH Verified 08/18/21 18:18 nicotine AdvReac Unknown HEART Verified 08/18/21 18:18 PALPITATION TO NICOTINE GUM Seafood Allergy Severe ANAPHYLAXIS Uncoded 07/31/21 20:43 From Geodon Allergy Unknown DYSURIA, Uncoded 07/31/21 20:43 RASH <TIMI Cruz - Last Filed: 09/17/21 21:18> Review of Systems Review of Systems: Constitutional : No Weight loss, No Fever, No Chills, No Fatigue, No Malaise ENT/Mouth : No sore throat, No Rhinorrhea Eyes: No Eye Pain, No Swelling, No Redness Cardiovascular : No Chest Pain, No SOB, No Dyspnea on Exertion, No Orthopnea, No Edema, No Palpitations Respiratory : No Cough, No Sputum, No Wheezing Gastrointestinal : No Nausea, No Vomiting, No Diarrhea, No Constipation, No abdominal Pain, No Hematochezia, No Melena Genitourinary : No Dysuria, No Urinary Frequency, No Hematuria, Musculoskeletal : No joint pain, No Myalgias, No Joint Swelling Skin : No Skin Lesions, No rash Neuro : No Weakness, No Numbness, No Dizziness, No Headache Psych : + Anxiety/Panic, + Depression, + SI, No HI All other systems reviewed and are negative <TIMI Cruz - Last Filed: 09/17/21 21:18> [facility] Past Medical History Attestation statement: The following information was validated with the patient. <TIMI Cruz - Last Filed: 09/17/21 21:18> Source: old records reviewed and nursing notes reviewed <TIMI Cruz - Last Filed: 09/17/21 21:18> Medical History: Medical History Bronchitis Diabetes type 2, controlled GERD (gastroesophageal reflux disease) Hyperlipidemia MDD (major depressive disorder), recurrent episode, severe Mood disorder Overdose PTSD (post-traumatic stress disorder) <TIMI Cruz - Last Filed: 09/17/21 21:18> Social History Social History: Social History 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: None 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 Other:: pt lives in longterm with 3 other peers Housing: Apartment Housing Other:: longterm Do you presently have visiting nurse or other home services: No Unable to assess alcohol history related to: Unknown Alcohol intake: never Patient Tobacco Use Status: Current everyday Tobacco user Tobacco use type: Cigarette Cigarette Packs Per Day: 1 Cigarettes Per Day: 20.0 Years Smoked: 20 e-Cigarette/Vaping Use: Never Used Second Hand Smoke Exposure: Yes Substance Use Type: Caffiene Advance Directives: No Advance Directives Information Provided: Yes Guardian: No Patient : No service: No Sexual orientation: Straight/Heterosexual <TIMI Cruz - Last Filed: 09/17/21 21:18> Physical Exam Vital Signs: Vital Signs: Last Vital Signs Temp 98.0 F 09/18/21 04:25 Pulse 90 09/18/21 07:42 Resp 17 09/18/21 04:25 BP 118/86 09/18/21 07:42 Pulse Ox 96 09/18/21 04:25 BMI result Body Mass Index 30.2 Vital signs are stable <TIMI Cruz - Last Filed: 09/17/21 21:18> Vital Signs: Last Vital Signs Temp 98.0 F 09/18/21 04:25 Pulse 90 09/18/21 07:42 Resp 17 09/18/21 04:25 BP 118/86 09/18/21 07:42 Pulse Ox 96 09/18/21 04:25 BMI result Body Mass Index 30.2 <Eileen Ryan MD - Last Filed: 09/17/21 23:29> Vital Signs: Last Vital Signs Temp 98.0 F 09/18/21 04:25 Pulse 90 09/18/21 07:42 Resp 17 09/18/21 04:25 BP 118/86 09/18/21 07:42 Pulse Ox 96 09/18/21 04:25 BMI result Body Mass Index 30.2 <TIMI Costello - Last Filed: 09/18/21 08:25> Appearance: Alert.? Oriented X3.? No acute distress.? Patient appears anxious, and paranoid, and slightly tearful. Head: Normocephalic, atraumatic, no step-offs or deformities Eyes: Pupils equal, round and reactive to light.? ENT: Pharynx normal.? Neck: Normal inspection.? Neck supple.? CVS: Normal heart rate and rhythm.? Pulses normal.? Respiratory: No respiratory distress.? Breath sounds normal.? Abdomen: Soft and nontender.? Skin: Skin warm and dry.? Normal skin color.? Normal skin turgor.?+ self- inflicted superficial wounds to the abdomen in bilateral ventral aspect of forearms, nonbleeding. Extremities: No lower extremity edema.? No calf ttp. 5/5 strength to bilateral upper and lower extremities Back: No midline tenderness, no C-spine tenderness, full range of motion, no CV A tenderness bilaterally Neuro: Oriented X 3.? No motor deficit.? No sensory deficit. Cranial nerves 2- 12 intact. <TIMI Cruz - Last Filed: 09/17/21 21:18> Course Reevaluation(s) Reevaluation #1: At this time patient's labs are pending. Sign out will be given to patient pending laboratory studies, and N consult, then can be placed in physician observation on a section 12. <TIMI Cruz - Last Filed: 09/17/21 21:18> Time: 21:01 <TIMI Cruz - Last Filed: 09/17/21 21:18> Reevaluation #2: [facility] evaluated the patient. Patient is waiting to go inpatient to , pt agreeable to plan <Eileen Ryan MD - Last Filed: 09/17/21 23:29> Time: 23:29 <Eileen Ryan MD - Last Filed: 09/17/21 23:29> Reevaluation #3: Patient resting comfortably, no events overnight, vital signs are stable, patient is sleeping, respirations even and nonlabored. Patient was SI with a plan, I have sectioned patient <TIMI Costello - Last Filed: 09/18/21 08:25> Time: 08:24 <TIMI Costello - Last Filed: 09/18/21 08:25> MDM - Psych MDM Narrative Medical decision making narrative: [id number] YO F pmhx borderline personality disorder, depression, anxiety, bipolar 2 with melancholic features, PTSD, DM, GERD presents to the emergency department with 2 days of progressively worsening suicidal ideation with plan to cut herself and auditory hallucinations. Patient tells me she cut herself yesterday in bilateral wrists, and abdomen. Upon physical examination there is evident signs of self-inflicted wounds on the ventral aspect of bilateral forearms, in abdomen. Lungs are clear. S1-S2 appreciated free of murmurs. Abdomen soft nontender nondistended. Cranial nerves 2-12 intact, known focal neuro deficits. Plan at this time is to obtain basic labs, urine, EtOH, pH in consult. Patient will be on close observation as she is SI with plan. <TIMI Cruz - Last Filed: 09/17/21 21:18> Medical Records Attestation: I reviewed the patient's medical records. <TIMI Cruz - Last Filed: 09/17/21 21:18> Lab Data Attestation: I reviewed the patient's lab results. <TIMI Cruz - Last Filed: 09/17/21 21:18> Result diagrams: : 09/17/21 20:59 09/17/21 20:59 <TIMI Cruz - Last Filed: 09/17/21 21:18> Labs: Lab Results 09/17/21 09/17/21 09/17/21 Range/Units 19:09 20:59 20:59 WBC 8.2 (4.8-10.8) X10*3/uL RBC 4.26 (4.20-5.50) X10*6/uL Hgb 12.9 (12.0-16.0) g/dl Hct 39.7 (37.0-47.0) % MCV 93.2 (80.0-98.0) fL MCH 30.3 (27.0-33.0) pg MCHC 32.5 (31.0-35.0) g/dl RDW 12.4 (11.0-16.0) % Plt Count 267 D (160-400) X10*3/uL MPV 9.6 (9.4-12.3) fL Immature Gran % (Auto) 0.5 H (0.0-0.4) % Neut % (Auto) 67.3 (45-73) % Lymph % (Auto) 22.5 (20-40) % Nelson % (Auto) 6.1 (2-11) % Eos % (Auto) 3.2 (0-4) % Baso % (Auto) 0.4 (0-2) % Lymph # (Auto) 1.8 (1.2-4.9) X10*3/uL Nelson # (Auto) 0.5 (0.1-1.2) X10*3/uL Eos # (Auto) 0.3 (0.0-0.4) X10*3/uL Baso # (Auto) 0.0 (0.0-0.2) X10*3/uL Abs Immat Gran (auto) 0.04 H (0.00-0.03) X10*3/uL Absolute Neuts (auto) 5.5 (2.0-8.3) x10*3/uL Absolute Nucleated RBC 0.000 (0.0-0.012) X10*3/uL Nucleated RBC % (auto) 0.0 (0.0-0.2) /100WBC Sodium 136 (135-145) mmol/L Potassium 3.7 (3.3-5.1) mmol/L Chloride 103 (96-108) mmol/L Carbon Dioxide 22 (22-29) mmol/L Anion Gap 15 (12-20) BUN 10 (9-16) mg/dL Creatinine 0.89 (0.5-1.4) mg/dL Estim Creat Clear Calc 89.5 Estimated GFR > 60 Random Glucose 153 H (60-115) mg/dL Calcium 9.2 D (8.4-10.2) mg/dL Total Bilirubin 0.3 (0.0-1.0) mg/dL AST 17 (5-31) U/L ALT 19 (0-31) U/L Alkaline Phosphatase 95 (39-117) U/L Total Protein 6.8 (6.5-8.0) g/dL Albumin 4.3 (3.5-5.0) g/dL Urine Color Urine Appearance Urine pH (5.0-8.0) Ur Specific [place] (1.005-1.025) Urine Protein (NEG-TRACE) MG/DL Urine Glucose (UA) (NEG) MG/DL Urine Ketones (NEG) MG/DL Urine Blood (NEG) Urine Nitrite (NEG) Ur Leukocyte Esterase (NEG) Urine RBC (0) /HPF Urine WBC (0-4) /HPF Ur Squamous Epith Cells /LPF Urine Bacteria /LPF Urine Mucus /LPF Urine Opiates Screen (Not Detect) Urine Fentanyl Screen (Not Detect) Ur Barbiturates Screen (Not Detect) Ur Phencyclidine Scrn (Not Detect) Ur Amphetamines Screen (Not Detect) U Benzodiazepines Scrn (Not Detect) Urine Cocaine Screen (Not Detect) U Marijuana (THC) Screen (Not Detect) Ethyl Alcohol mg/dL COVID-19 (NICK) Negative (Negative) COVID-19 Clin Com See Note 09/17/21 09/17/21 09/17/21 Range/Units 20:59 21:27 21:27 WBC (4.8-10.8) X10*3/uL RBC (4.20-5.50) X10*6/uL Hgb (12.0-16.0) g/dl Hct (37.0-47.0) % MCV (80.0-98.0) fL MCH (27.0-33.0) pg MCHC (31.0-35.0) g/dl RDW (11.0-16.0) % Plt Count (160-400) X10*3/uL MPV (9.4-12.3) fL Immature Gran % (Auto) (0.0-0.4) % Neut % (Auto) (45-73) % Lymph % (Auto) (20-40) % Nelson % (Auto) (2-11) % Eos % (Auto) (0-4) % Baso % (Auto) (0-2) % Lymph # (Auto) (1.2-4.9) X10*3/uL Nelson # (Auto) (0.1-1.2) X10*3/uL Eos # (Auto) (0.0-0.4) X10*3/uL Baso # (Auto) (0.0-0.2) X10*3/uL Abs Immat Gran (auto) (0.00-0.03) X10*3/uL Absolute Neuts (auto) (2.0-8.3) x10*3/uL Absolute Nucleated RBC (0.0-0.012) X10*3/uL Nucleated RBC % (auto) (0.0-0.2) /100WBC Sodium (135-145) mmol/L Potassium (3.3-5.1) mmol/L Chloride (96-108) mmol/L Carbon Dioxide (22-29) mmol/L Anion Gap (12-20) BUN (9-16) mg/dL Creatinine (0.5-1.4) mg/dL Estim Creat Clear Calc Estimated GFR Random Glucose (60-115) mg/dL Calcium (8.4-10.2) mg/dL Total Bilirubin (0.0-1.0) mg/dL AST (5-31) U/L ALT (0-31) U/L Alkaline Phosphatase (39-117) U/L Total Protein (6.5-8.0) g/dL Albumin (3.5-5.0) g/dL Urine Color YELLOW Urine Appearance CLEAR Urine pH 6.0 (5.0-8.0) Ur Specific [place] <= 1.005 (1.005-1.025) Urine Protein NEG (NEG-TRACE) MG/DL Urine Glucose (UA) NEG (NEG) MG/DL Urine Ketones NEG (NEG) MG/DL Urine Blood NEG (NEG) Urine Nitrite NEG (NEG) Ur Leukocyte Esterase NEG (NEG) Urine RBC 0 (0) /HPF Urine WBC 0 (0-4) /HPF Ur Squamous Epith Cells TRACE /LPF Urine Bacteria TRACE /LPF Urine Mucus TRACE /LPF Urine Opiates Screen Not Detected (Not Detect) Urine Fentanyl Screen Not Detected (Not Detect) Ur Barbiturates Screen Not Detected (Not Detect) Ur Phencyclidine Scrn Not Detected (Not Detect) Ur Amphetamines Screen Not Detected (Not Detect) U Benzodiazepines Scrn Not Detected (Not Detect) Urine Cocaine Screen Not Detected (Not Detect) U Marijuana (THC) Screen Not Detected (Not Detect) Ethyl Alcohol < 10 mg/dL COVID-19 (NICK) (Negative) COVID-19 Clin Com <TIMI Cruz - Last Filed: 09/17/21 21:18> Lab Results 09/17/21 09/17/21 09/17/21 Range/Units 19:09 20:59 20:59 WBC 8.2 (4.8-10.8) X10*3/uL RBC 4.26 (4.20-5.50) X10*6/uL Hgb 12.9 (12.0-16.0) g/dl Hct 39.7 (37.0-47.0) % MCV 93.2 (80.0-98.0) fL MCH 30.3 (27.0-33.0) pg MCHC 32.5 (31.0-35.0) g/dl RDW 12.4 (11.0-16.0) % Plt Count 267 D (160-400) X10*3/uL MPV 9.6 (9.4-12.3) fL Immature Gran % (Auto) 0.5 H (0.0-0.4) % Neut % (Auto) 67.3 (45-73) % Lymph % (Auto) 22.5 (20-40) % Nelson % (Auto) 6.1 (2-11) % Eos % (Auto) 3.2 (0-4) % Baso % (Auto) 0.4 (0-2) % Lymph # (Auto) 1.8 (1.2-4.9) X10*3/uL Nelson # (Auto) 0.5 (0.1-1.2) X10*3/uL Eos # (Auto) 0.3 (0.0-0.4) X10*3/uL Baso # (Auto) 0.0 (0.0-0.2) X10*3/uL Abs Immat Gran (auto) 0.04 H (0.00-0.03) X10*3/uL Absolute Neuts (auto) 5.5 (2.0-8.3) x10*3/uL Absolute Nucleated RBC 0.000 (0.0-0.012) X10*3/uL Nucleated RBC % (auto) 0.0 (0.0-0.2) /100WBC Sodium 136 (135-145) mmol/L Potassium 3.7 (3.3-5.1) mmol/L Chloride 103 (96-108) mmol/L Carbon Dioxide 22 (22-29) mmol/L Anion Gap 15 (12-20) BUN 10 (9-16) mg/dL Creatinine 0.89 (0.5-1.4) mg/dL Estim Creat Clear Calc 89.5 Estimated GFR > 60 Random Glucose 153 H (60-115) mg/dL Calcium 9.2 D (8.4-10.2) mg/dL Total Bilirubin 0.3 (0.0-1.0) mg/dL AST 17 (5-31) U/L ALT 19 (0-31) U/L Alkaline Phosphatase 95 (39-117) U/L Total Protein 6.8 (6.5-8.0) g/dL Albumin 4.3 (3.5-5.0) g/dL Urine Color Urine Appearance Urine pH (5.0-8.0) Ur Specific [place] (1.005-1.025) Urine Protein (NEG-TRACE) MG/DL Urine Glucose (UA) (NEG) MG/DL Urine Ketones (NEG) MG/DL Urine Blood (NEG) Urine Nitrite (NEG) Ur Leukocyte Esterase (NEG) Urine RBC (0) /HPF Urine WBC (0-4) /HPF Ur Squamous Epith Cells /LPF Urine Bacteria /LPF Urine Mucus /LPF Urine Opiates Screen (Not Detect) Urine Fentanyl Screen (Not Detect) Ur Barbiturates Screen (Not Detect) Ur Phencyclidine Scrn (Not Detect) Ur Amphetamines Screen (Not Detect) U Benzodiazepines Scrn (Not Detect) Urine Cocaine Screen (Not Detect) U Marijuana (THC) Screen (Not Detect) Ethyl Alcohol mg/dL COVID-19 (NICK) Negative (Negative) COVID-19 Clin Com See Note 09/17/21 09/17/21 09/17/21 Range/Units 20:59 21:27 21:27 WBC (4.8-10.8) X10*3/uL RBC (4.20-5.50) X10*6/uL Hgb (12.0-16.0) g/dl Hct (37.0-47.0) % MCV (80.0-98.0) fL MCH (27.0-33.0) pg MCHC (31.0-35.0) g/dl RDW (11.0-16.0) % Plt Count (160-400) X10*3/uL MPV (9.4-12.3) fL Immature Gran % (Auto) (0.0-0.4) % Neut % (Auto) (45-73) % Lymph % (Auto) (20-40) % Nelson % (Auto) (2-11) % Eos % (Auto) (0-4) % Baso % (Auto) (0-2) % Lymph # (Auto) (1.2-4.9) X10*3/uL Nelson # (Auto) (0.1-1.2) X10*3/uL Eos # (Auto) (0.0-0.4) X10*3/uL Baso # (Auto) (0.0-0.2) X10*3/uL Abs Immat Gran (auto) (0.00-0.03) X10*3/uL Absolute Neuts (auto) (2.0-8.3) x10*3/uL Absolute Nucleated RBC (0.0-0.012) X10*3/uL Nucleated RBC % (auto) (0.0-0.2) /100WBC Sodium (135-145) mmol/L Potassium (3.3-5.1) mmol/L Chloride (96-108) mmol/L Carbon Dioxide (22-29) mmol/L Anion Gap (12-20) BUN (9-16) mg/dL Creatinine (0.5-1.4) mg/dL Estim Creat Clear Calc Estimated GFR Random Glucose (60-115) mg/dL Calcium (8.4-10.2) mg/dL Total Bilirubin (0.0-1.0) mg/dL AST (5-31) U/L ALT (0-31) U/L Alkaline Phosphatase (39-117) U/L Total Protein (6.5-8.0) g/dL Albumin (3.5-5.0) g/dL Urine Color YELLOW Urine Appearance CLEAR Urine pH 6.0 (5.0-8.0) Ur Specific [place] <= 1.005 (1.005-1.025) Urine Protein NEG (NEG-TRACE) MG/DL Urine Glucose (UA) NEG (NEG) MG/DL Urine Ketones NEG (NEG) MG/DL Urine Blood NEG (NEG) Urine Nitrite NEG (NEG) Ur Leukocyte Esterase NEG (NEG) Urine RBC 0 (0) /HPF Urine WBC 0 (0-4) /HPF Ur Squamous Epith Cells TRACE /LPF Urine Bacteria TRACE /LPF Urine Mucus TRACE /LPF Urine Opiates Screen Not Detected (Not Detect) Urine Fentanyl Screen Not Detected (Not Detect) Ur Barbiturates Screen Not Detected (Not Detect) Ur Phencyclidine Scrn Not Detected (Not Detect) Ur Amphetamines Screen Not Detected (Not Detect) U Benzodiazepines Scrn Not Detected (Not Detect) Urine Cocaine Screen Not Detected (Not Detect) U Marijuana (THC) Screen Not Detected (Not Detect) Ethyl Alcohol < 10 mg/dL COVID-19 (NICK) (Negative) COVID-19 Clin Com <Eileen Ryan MD - Last Filed: 09/17/21 23:29> Lab Results 09/17/21 09/17/21 09/17/21 Range/Units 19:09 20:59 20:59 WBC 8.2 (4.8-10.8) X10*3/uL RBC 4.26 (4.20-5.50) X10*6/uL Hgb 12.9 (12.0-16.0) g/dl Hct 39.7 (37.0-47.0) % MCV 93.2 (80.0-98.0) fL MCH 30.3 (27.0-33.0) pg MCHC 32.5 (31.0-35.0) g/dl RDW 12.4 (11.0-16.0) % Plt Count 267 D (160-400) X10*3/uL MPV 9.6 (9.4-12.3) fL Immature Gran % (Auto) 0.5 H (0.0-0.4) % Neut % (Auto) 67.3 (45-73) % Lymph % (Auto) 22.5 (20-40) % Nelson % (Auto) 6.1 (2-11) % Eos % (Auto) 3.2 (0-4) % Baso % (Auto) 0.4 (0-2) % Lymph # (Auto) 1.8 (1.2-4.9) X10*3/uL Nelson # (Auto) 0.5 (0.1-1.2) X10*3/uL Eos # (Auto) 0.3 (0.0-0.4) X10*3/uL Baso # (Auto) 0.0 (0.0-0.2) X10*3/uL Abs Immat Gran (auto) 0.04 H (0.00-0.03) X10*3/uL Absolute Neuts (auto) 5.5 (2.0-8.3) x10*3/uL Absolute Nucleated RBC 0.000 (0.0-0.012) X10*3/uL Nucleated RBC % (auto) 0.0 (0.0-0.2) /100WBC Sodium 136 (135-145) mmol/L Potassium 3.7 (3.3-5.1) mmol/L Chloride 103 (96-108) mmol/L Carbon Dioxide 22 (22-29) mmol/L Anion Gap 15 (12-20) BUN 10 (9-16) mg/dL Creatinine 0.89 (0.5-1.4) mg/dL Estim Creat Clear Calc 89.5 Estimated GFR > 60 Random Glucose 153 H (60-115) mg/dL Calcium 9.2 D (8.4-10.2) mg/dL Total Bilirubin 0.3 (0.0-1.0) mg/dL AST 17 (5-31) U/L ALT 19 (0-31) U/L Alkaline Phosphatase 95 (39-117) U/L Total Protein 6.8 (6.5-8.0) g/dL Albumin 4.3 (3.5-5.0) g/dL Urine Color Urine Appearance Urine pH (5.0-8.0) Ur Specific [place] (1.005-1.025) Urine Protein (NEG-TRACE) MG/DL Urine Glucose (UA) (NEG) MG/DL Urine Ketones (NEG) MG/DL Urine Blood (NEG) Urine Nitrite (NEG) Ur Leukocyte Esterase (NEG) Urine RBC (0) /HPF Urine WBC (0-4) /HPF Ur Squamous Epith Cells /LPF Urine Bacteria /LPF Urine Mucus /LPF Urine Opiates Screen (Not Detect) Urine Fentanyl Screen (Not Detect) Ur Barbiturates Screen (Not Detect) Ur Phencyclidine Scrn (Not Detect) Ur Amphetamines Screen (Not Detect) U Benzodiazepines Scrn (Not Detect) Urine Cocaine Screen (Not Detect) U Marijuana (THC) Screen (Not Detect) Ethyl Alcohol mg/dL COVID-19 (NICK) Negative (Negative) COVID-19 Clin Com See Note 09/17/21 09/17/21 09/17/21 Range/Units 20:59 21:27 21:27 WBC (4.8-10.8) X10*3/uL RBC (4.20-5.50) X10*6/uL Hgb (12.0-16.0) g/dl Hct (37.0-47.0) % MCV (80.0-98.0) fL MCH (27.0-33.0) pg MCHC (31.0-35.0) g/dl RDW (11.0-16.0) % Plt Count (160-400) X10*3/uL MPV (9.4-12.3) fL Immature Gran % (Auto) (0.0-0.4) % Neut % (Auto) (45-73) % Lymph % (Auto) (20-40) % Nelson % (Auto) (2-11) % Eos % (Auto) (0-4) % Baso % (Auto) (0-2) % Lymph # (Auto) (1.2-4.9) X10*3/uL Nelson # (Auto) (0.1-1.2) X10*3/uL Eos # (Auto) (0.0-0.4) X10*3/uL Baso # (Auto) (0.0-0.2) X10*3/uL Abs Immat Gran (auto) (0.00-0.03) X10*3/uL Absolute Neuts (auto) (2.0-8.3) x10*3/uL Absolute Nucleated RBC (0.0-0.012) X10*3/uL Nucleated RBC % (auto) (0.0-0.2) /100WBC Sodium (135-145) mmol/L Potassium (3.3-5.1) mmol/L Chloride (96-108) mmol/L Carbon Dioxide (22-29) mmol/L Anion Gap (12-20) BUN (9-16) mg/dL Creatinine (0.5-1.4) mg/dL Estim Creat Clear Calc Estimated GFR Random Glucose (60-115) mg/dL Calcium (8.4-10.2) mg/dL Total Bilirubin (0.0-1.0) mg/dL AST (5-31) U/L ALT (0-31) U/L Alkaline Phosphatase (39-117) U/L Total Protein (6.5-8.0) g/dL Albumin (3.5-5.0) g/dL Urine Color YELLOW Urine Appearance CLEAR Urine pH 6.0 (5.0-8.0) Ur Specific [place] <= 1.005 (1.005-1.025) Urine Protein NEG (NEG-TRACE) MG/DL Urine Glucose (UA) NEG (NEG) MG/DL Urine Ketones NEG (NEG) MG/DL Urine Blood NEG (NEG) Urine Nitrite NEG (NEG) Ur Leukocyte Esterase NEG (NEG) Urine RBC 0 (0) /HPF Urine WBC 0 (0-4) /HPF Ur Squamous Epith Cells TRACE /LPF Urine Bacteria TRACE /LPF Urine Mucus TRACE /LPF Urine Opiates Screen Not Detected (Not Detect) Urine Fentanyl Screen Not Detected (Not Detect) Ur Barbiturates Screen Not Detected (Not Detect) Ur Phencyclidine Scrn Not Detected (Not Detect) Ur Amphetamines Screen Not Detected (Not Detect) U Benzodiazepines Scrn Not Detected (Not Detect) Urine Cocaine Screen Not Detected (Not Detect) U Marijuana (THC) Screen Not Detected (Not Detect) Ethyl Alcohol < 10 mg/dL COVID-19 ([facility]) (Negative) COVID-19 Clin Com <TIMI Costello - Last Filed: 09/18/21 08:25> Critical Care Time Critical Care Time Critical Care Time: No <TIMI Cruz - Last Filed: 09/17/21 21:18> Discharge Plan Discharge Clinical Impression: Suicidal ideation, Depression, Acute anxiety <TIMI Cruz Last Filed: 09/17/21 21:18> Patient Disposition: Still a Patient <TIMI Cruz - Last Filed: 09/17/21 21:18> Prescriptions: No Action trazodone 150 mg tablet 150 mg PO BEDTIME RF: 0 polyethylene glycol 3350 [Miralax] 17 gram Powder In Packet 17 g PO DAILY PRN (Reason: Constipation) RF: 0 metformin 500 mg tablet 1 tab PO BID RF: 0 atorvastatin 10 mg tablet 1 tab PO DAILY RF: 0 pantoprazole 40 mg tablet,delayed release (DR/EC) 1 tab PO BID@0630,1630 RF: 0 verapamil 240 mg tablet extended release 1 tab PO BEDTIME RF: 0 montelukast 10 mg tablet 1 tab PO BEDTIME RF: 0 lisinopril 5 mg tablet 1 tab PO DAILY RF: 0 ferrous sulfate 325 mg (65 mg iron) tablet,delayed release (DR/EC) 1 tab PO DAILY RF: 0 Flovent HFA 110 mcg/actuation HFA aerosol inhaler 2 puff inhalation BID RF: 0 norethindrone (contraceptive) [Deblitane] 0.35 mg Tablet 0.35 mg PO DAILY RF: 0 albuterol sulfate [Ventolin HFA] 90 mcg/actuation HFA aerosol inhaler 2 puff inhalation Q4H PRN (Reason: Shortness Of Breath) RF: 0 prazosin 1 mg Capsule 3 mg PO BEDTIME 30 Days Qty: 90 RF: 0 fluoxetine 20 mg Capsule 60 mg PO DAILY 30 Days Qty: 90 RF: 0 clonazepam 0.5 mg Tablet 0.25 mg PO QID PRN (Reason: anxiety/AH) 30 Days Qty: 60 RF: 0 nicotine 21 mg/24 hr Patch 24 Hour 21 mg transdermal DAILY PRN (Reason: smoking cessation) 28 Days Qty: 28 RF: 0 benztropine 0.5 mg Tablet 0.5 mg PO BID PRN (Reason: EPS) 30 Days Qty: 60 RF: 0 hydroxyzine HCl 50 mg Tablet 50 mg PO QID PRN (Reason: Anxiety) 30 Days Qty: 120 RF: 0 chlorpromazine 25 mg Tablet 50 mg PO QID 30 Days Qty: 240 RF: 0 chlorpromazine 25 mg Tablet 50 mg PO DAILY PRN (Reason: agitation) 30 Days Qty: 30 RF: 0 clonidine HCl 0.1 mg tablet 0.1 mg PO BID@0830,1430 RF: 0 ibuprofen 600 mg tablet 1 tab PO Q6H PRN (Reason: Pain (Scale Score 1-3)) RF: 0 <TIMI Cruz - Last Filed: 09/17/21 21:18>
[2021-09-17 18:47] VITALS: BP 122/66; BP 130/90; PULSE 92; PULSE 98; RESP 16; TEMP 36.7; O2SAT 98; BMI 30.2
[2021-09-17] MEDS: LORazepam 1 MG TABLET PO (18:57)
[2021-09-17 20:01] LABS: COVID-19 Test Negative (Negative)
[2021-09-17 21:07] LABS: MANUAL DIFF FLAG NO
[2021-09-17 21:08] LABS: Basophils Percent Auto 0.4 % (0-2); Eosinophils Absolute Auto 0.3 X10*3/uL (0.0-0.4); Eosinophils Percent Auto 3.2 % (0-4); Hematocrit 39.7 % (37.0-47.0); Hemoglobin 12.9 g/dl (12.0-16.0); Imm Gran Abs Auto 0.04 X10*3/uL (0.00-0.03); Imm Gran Pct Auto 0.5 % (0.0-0.4); Lymphocytes Absolute Auto 1.8 X10*3/uL (1.2-4.9); Lymphocytes Percent Auto 22.5 % (20-40); Mean Corpuscular HGB Conc 32.5 g/dl (31.0-35.0); Mean Corpuscular Hemoglobin 30.3 pg (27.0-33.0); Mean Corpuscular Volume 93.2 fL (80.0-98.0); Mean Platelet Volume 9.6 fL (9.4-12.3); Monocytes Absolute Auto 0.5 X10*3/uL (0.1-1.2); Monocytes Percent Auto 6.1 % (2-11); Neutrophils Absolute Auto 5.5 x10*3/uL (2.0-8.3); Neutrophils Percent Auto 67.3 % (45-73); Platelet Count 267 X10*3/uL (160-400); Red Blood Count 4.26 X10*6/uL (4.20-5.50); Red Cell Distribution Width 12.4 % (11.0-16.0); White Blood Count 8.2 X10*3/uL (4.8-10.8)
[2021-09-17 21:26] LABS: Ethanol < 10 mg/dL
[2021-09-17 21:28] LABS: Alanine Aminotransferase 19 U/L (0-31); Albumin Level 4.3 g/dL (3.5-5.0); Alkaline Phosphatase 95 U/L (39-117); Anion Gap 15 (12-20); Aspartate Amino Transferase 17 U/L (5-31); Bilirubin Total 0.3 mg/dL (0.0-1.0); Blood Urea Nitrogen 10 mg/dL (9-16); Calcium 9.2 mg/dL (8.4-10.2); Carbon Dioxide 22 mmol/L (22-29); Chloride 103 mmol/L (96-108); Creatinine Clr Calc Pharmacy 89.5; Estimated Glomerular Filt Rate > 60; Glucose Random 153 mg/dL (60-115); Potassium 3.7 mmol/L (3.3-5.1); Sodium 136 mmol/L (135-145); Total Protein 6.8 g/dL (6.5-8.0)
[2021-09-17 21:41] LABS: Appearance Urine CLEAR; Color Urine YELLOW; Glucose Urine UA NEG (NEG); Leukocyte Esterase Urine NEG (NEG); Nitrite Urine NEG (NEG); Specific Gravity - Urine <= 1.005 (1.005-1.025); Urine Blood NEG (NEG); Urine Ketones NEG (NEG); Urine Protein NEG (NEG-TRACE)
[2021-09-17 21:59] LABS: Amphetamine Screen Urine Not Detected (Not Detect); Barbiturates, Urine Not Detected (Not Detect); Benzodiazepines Screen Urine Not Detected (Not Detect); Cannabinoid Screen Urine Not Detected (Not Detect); Cocaine Screen Urine Not Detected (Not Detect); Fentanyl, urine Not Detected (Not Detect); Opiate Screen Urine Not Detected (Not Detect); Phencyclidine Screen Urine Not Detected (Not Detect)
[2021-09-17 23:16] LABS: Bacteria Urine TRACE /LPF; Mucus Urine TRACE /LPF; RBC Urine 0 /HPF (0); Squamous Epithelial Cell Urine TRACE /LPF; WBC Urine 0 /HPF (0-4)
[2021-09-18] MEDS: traZODone HCL 50 MG TABLET 150 MG PO (00:22)
[2021-09-18] MEDS: chlorproMAZINE HCl 25 MG TABLET 50 MG PO ×3 (00:22→14:08)
[2021-09-18] MEDS: clonazePAM 0.5 MG TABLET 0.25 MG PO (00:23)
[2021-09-18] MEDS: metFORMIN HCl 500 MG TABLET PO ×2 (00:23→07:41)
[2021-09-18 04:25] VITALS: BP 118/86; PULSE 90; RESP 17; TEMP 36.7; O2SAT 96
--- NOTE | 2021-09-18 06:34 | PC.NURSE ---
Patient slept through the night, no distress observed/reported, behavior appropriate at time does head banging or self scratching but can be redirected, medication compliant, patient was fully evaluated by care team, disposition voluntary inpatient bed search, VSS, will continue to monitor.
--- NOTE | 2021-09-18 06:55 | PC.NURSE ---
patient appears to remain at rest at present, respirations are even and unlabored, patient appears in no distress.
[2021-09-18 07:42] VITALS: BP 118/86; PULSE 90
[2021-09-18] MEDS: FLUoxetine HCl 20 MG CAPSULE 60 MG PO (07:42)
[2021-09-18] MEDS: Omeprazole 20 MG CAPSULE.DR PO (07:42)
[2021-09-18] MEDS: cloNIDine HCL 0.1 MG TABLET PO ×2 (07:42→14:09)
[2021-09-18] MEDS: lisinopriL 5 MG TABLET PO (07:42)
[2021-09-18] MEDS: Atorvastatin Calcium 10 MG TABLET PO (07:43)
[2021-09-18] MEDS: Ferrous Sulfate 324 MG TABLET.DR PO (07:43)
[2021-09-18 14:09] VITALS: BP 118/86; PULSE 90
== END 2021-09-18 15:37 | disposition home or self-care (01) ==
PROVIDERS: Physician Assistant; Emergency Provider Emergency Medicine Emergency Medical Services
DX: R45.851 Suicidal ideations (principal); F31.81 Bipolar II disorder; F41.9 Anxiety disorder, unspecified; R44.0 Auditory hallucinations; F60.3 Borderline personality disorder; F43.10 Post-traumatic stress disorder, unspecified; E11.9 Type 2 diabetes mellitus without complications; E78.5 Hyperlipidemia, unspecified; F17.200 Nicotine dependence, unspecified, uncomplicated; Z20.822 Contact with and (suspected) exposure to COVID-19; Z91.51 Personal history of suicidal behavior; Z79.02 Long term (current) use of antithrombotics/antiplatelets; Z79.899 Other long term (current) drug therapy
CPT/HCPCS: 36415; 80053; 80307; 81001; 82077; 85025; 87635; 99284; 99285

== ENCOUNTER 2021-09-19 14:49 | Inpatient (IN) | payer MEDICARE, MEDICAID, SELFPAY ==
[2021-09-19 15:23] VITALS: BMI 35.4
[2021-09-19 15:34] VITALS: BP 114/73; PULSE 83; RESP 14; TEMP 36.9; O2SAT 95
--- NOTE | 2021-09-19 15:39 | ED.PSYCH ---
HPI - Psych General Chief Complaint: Psychiatric Symptoms <Yoseph Velasco MD - Last Filed: 09/19/21 20:18> Stated Complaint: SEC 12,SI,SEEN IN COMMUNITY,ACTIVE BED SEARCH <Yoseph Velasco MD - Last Filed: 09/19/21 20:18> Time Seen by Provider: 09/19/21 15:38 <Yoseph Velasco MD - Last Filed: 09/19/21 20:18> Source: patient <Yoseph Velasco MD - Last Filed: 09/19/21 20:18> Mode of arrival: ambulatory <Yoseph Velasco MD - Last Filed: 09/19/21 20:18> Limitations: no limitations <Yoseph Velasco MD - Last Filed: 09/19/21 20:18> History of Present Illness HPI Narrative: patient states that she is hearing voices telling her to cut herself. A new voice is telling her to cut her throat. patient broke a porcelain mug and cut herself with it. <Yoseph Velasco MD - Last Filed: 09/19/21 20:18> MD complaint: feels depressed and anxiety <Yoseph Velasco MD - Last Filed: 09/19/21 20:18> Onset (ago): week(s) <Yoseph Velasco MD - Last Filed: 09/19/21 20:18> Duration: constant <Yoseph Velasco MD - Last Filed: 09/19/21 20:18> History of same: Yes <Yoseph Velasco MD - Last Filed: 09/19/21 20:18> Relieving factors: none <Yoseph Velasco MD - Last Filed: 09/19/21 20:18> Associated psychiatric symptoms: depression and suicidal ideation <Yoseph Velasco MD - Last Filed: 09/19/21 20:18> Associated symptoms: denies other symptoms <Yoseph Velasco MD - Last Filed: 09/19/21 20:18> If self harm: admits thoughts of self harm <Yoseph Velasco MD - Last Filed: 09/19/21 20:18> Related Data Home Medications: Home Medications Medication Instructions Recorded Confirmed trazodone 150 mg tablet 150 mg PO BEDTIME 01/27/21 09/19/21 polyethylene glycol 3350 17 gram 17 g PO DAILY PRN 02/12/21 09/19/21 oral powder packet (Miralax) atorvastatin 10 mg tablet 1 tab PO DAILY 05/29/21 09/19/21 ferrous sulfate 325 mg (65 mg 1 tab PO DAILY 05/29/21 09/19/21 iron) tablet,delayed release fluticasone propionate 110 2 puff INHALATION BID 05/29/21 09/19/21 mcg/actuation HFA aerosol inhaler (Flovent HFA) lisinopril 5 mg tablet 1 tab PO DAILY 05/29/21 09/19/21 metformin 500 mg tablet 1 tab PO BID 05/29/21 09/19/21 montelukast 10 mg tablet 1 tab PO BEDTIME 05/29/21 09/19/21 norethindrone (contraceptive) 0.35 0.35 mg PO DAILY 05/29/21 09/19/21 mg tablet (Deblitane) pantoprazole 40 mg tablet,delayed 1 tab PO BID@0630,1630 05/29/21 09/19/21 release verapamil 240 mg tablet,extended 1 tab PO BEDTIME 05/29/21 09/19/21 release albuterol sulfate 90 mcg/actuation 2 puff INHALATION Q4H PRN 06/15/21 09/19/21 aerosol inhaler (Ventolin HFA) clonidine HCl 0.1 mg tablet 0.1 mg PO BID@0830,1430 08/26/21 09/19/21 ibuprofen 600 mg tablet 600 mg PO Q6H PRN 09/19/21 09/19/21 Previous Rx's Medication Instructions Recorded benztropine 0.5 mg tablet 0.5 mg PO BID PRN 30 Days #60 tab 07/27/21 hydroxyzine HCl 50 mg tablet 50 mg PO QID PRN 30 Days #120 tab 07/27/21 chlorpromazine 25 mg tablet 50 mg PO DAILY PRN 30 Days #30 tab 08/15/21 chlorpromazine 25 mg tablet 50 mg PO QID 30 Days #240 tab 08/15/21 clonazepam 0.5 mg tablet 0.25 mg PO QID PRN 30 Days #60 tab 09/06/21 fluoxetine 20 mg capsule 60 mg PO DAILY 30 Days #90 cap 09/06/21 nicotine 21 mg/24 hr daily 21 mg TRANSDERMAL DAILY PRN 28 09/06/21 transdermal patch Days #28 ea prazosin 1 mg capsule 3 mg PO BEDTIME 30 Days #90 cap 09/06/21 <Yoseph Velasco MD - Last Filed: 09/19/21 20:18> Allergies/Adverse Reactions: Allergies Allergy/AdvReac Type Severity Reaction Status Date / Time Fish Containing Products Allergy Severe ANAPHYLAXIS Verified 08/18/21 18:18 codeine [Codeine] Allergy Unknown RASH Verified 08/18/21 18:18 Penicillins Allergy Unknown RASH Verified 08/18/21 18:18 prednisone [Prednisone] Allergy Unknown RASH Verified 08/18/21 18:18 Sulfa (Sulfonamide Allergy Unknown RASH Verified 08/18/21 18:18 Antibiotics) [Sulfa (Sulfonamides)] azithromycin [AZITHROMYCIN] AdvReac Severe RASH Verified 08/18/21 18:18 nicotine AdvReac Unknown HEART Verified 08/18/21 18:18 PALPITATION TO NICOTINE GUM Seafood Allergy Severe ANAPHYLAXIS Uncoded 07/31/21 20:43 From Geodon Allergy Unknown DYSURIA, Uncoded 07/31/21 20:43 RASH <Yoseph Velasco MD - Last Filed: 09/19/21 20:18> Review of Systems Constitutional: Constitutional: Reports no additional constitutional complaints <Yoseph Velasco MD - Last Filed: 09/19/21 20:18> Eyes: Eyes: Reports no additional eye complaints <Yoseph Velasco MD - Last Filed: 09/19/21 20:18> ENT: Denies dizziness <Yoseph Velasco MD - Last Filed: 09/19/21 20:18> Cardiovascular: Cardiovascular: Reports no additional cardiovascular complaints <Yoseph Velasco MD - Last Filed: 09/19/21 20:18> Respiratory: Respiratory: Reports as per HPI <Yoseph Velasco MD - Last Filed: 09/19/21 20:18> Gastrointestinal: Gastrointestinal: Reports no additional gastrointestinal complaints <Yoseph Velasco MD - Last Filed: 09/19/21 20:18> Genitourinary: Genitourinary: Reports no additional female genitourinary complaints <Yoseph Velasco MD - Last Filed: 09/19/21 20:18> Musculoskeletal: Musculoskeletal: Reports no additional musculoskeletal complaints <Yoseph Velasco MD - Last Filed: 09/19/21 20:18> Integumentary/Breasts: Skin/Breast: Denies rash <Yoseph Velasco MD - Last Filed: 09/19/21 20:18> Neurologic: Reports system reviewed and no additional complaints, except as documented, Denies dizziness and Denies Sensory deficit (Neuro) <Yoseph Velasco MD - Last Filed: 09/19/21 20:18> Psychiatric: Psychiatric: Denies anxiety <Yoseph Velasco MD - Last Filed: 09/19/21 20:18> PMFSH Past Medical History Medical History: Medical History Bronchitis Diabetes type 2, controlled GERD (gastroesophageal reflux disease) Hyperlipidemia MDD (major depressive disorder), recurrent episode, severe Mood disorder Overdose PTSD (post-traumatic stress disorder) <Yoseph Velasco MD - Last Filed: 09/19/21 20:18> Social History Social History: Social History 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: None 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 Other:: pt lives in jail with 3 other peers Housing: Apartment Housing Other:: jail Do you presently have visiting nurse or other home services: No Unable to assess alcohol history related to: Unknown Alcohol intake: never Patient Tobacco Use Status: Current everyday Tobacco user Tobacco use type: Cigarette Cigarette Packs Per Day: 1 Cigarettes Per Day: 20.0 Years Smoked: 20 e-Cigarette/Vaping Use: Never Used Second Hand Smoke Exposure: Yes Substance Use Type: Caffiene Advance Directives: No Advance Directives Information Provided: No Patient : No service: No Sexual orientation: Straight/Heterosexual <Yoseph Velasco MD - Last Filed: 09/19/21 20:18> Physical Exam Vital Signs: Vital Signs: Last Vital Signs Temp 99.0 F 09/20/21 06:47 Pulse 80 09/20/21 07:58 Resp 16 09/20/21 06:47 BP 103/71 09/20/21 07:58 Pulse Ox 97 09/20/21 06:47 BMI result Body Mass Index 35.4 <Yoseph Velasco MD - Last Filed: 09/19/21 20:18> Vital Signs: Last Vital Signs Temp 99.0 F 09/20/21 06:47 Pulse 80 09/20/21 07:58 Resp 16 09/20/21 06:47 BP 103/71 09/20/21 07:58 Pulse Ox 97 09/20/21 06:47 BMI result Body Mass Index 35.4 <TIMI Lopez - Last Filed: 09/20/21 10:17> Const: Other: obese female, flat affect rocking <Yoseph Velasco MD - Last Filed: 09/19/21 20:18> Nutritional Appearance: obese <Yoseph Velasco MD - Last Filed: 09/19/21 20:18> Orientation/consciousness: oriented to person and patient oriented x3 <Yoseph Velasco MD - Last Filed: 09/19/21 20:18> Limitations: no limitations <Yoseph Velasco MD - Last Filed: 09/19/21 20:18> HENMT: Head: Yes normal to inspection <Yoseph Velasco MD - Last Filed: 09/19/21 20:18> Ears: external ears normal <Yoseph Velasco MD - Last Filed: 09/19/21 20:18> General nose exam: Normal external nose present <Yoseph Velasco MD - Last Filed: 09/19/21 20:18> Mouth: Normal oral and palatal mucosa present and oropharynx normal <Yoseph Velasco MD - Last Filed: 09/19/21 20:18> Throat: Yes posterior oropharynx normal <Yoseph Velasco MD - Last Filed: 09/19/21 20:18> Eyes: General: appearance normal, both eyes and all related structures <Yoseph Velasco MD - Last Filed: 09/19/21 20:18> Neck: Other: supple <Yoseph Velasco MD - Last Filed: 09/19/21 20:18> Neck: Yes normal visual inspection <Yoseph Velasco MD - Last Filed: 09/19/21 20:18> Chest: Chest palpation & inspection: normal inspection of the chest <Yoseph Velasco MD - Last Filed: 09/19/21 20:18> Resp: Auscultation: clear to auscultation bilaterally <Yoseph Velasco MD - Last Filed: 09/19/21 20:18> Cardio: Jugular venous distension: no JVD <Yoseph Velasco MD - Last Filed: 09/19/21 20:18> Rate: regular rate <Yoseph Velasco MD - Last Filed: 09/19/21 20:18> Rhythm: regular rhythm <Yoseph Velasco MD - Last Filed: 09/19/21 20:18> Heart sounds: S1 normal heart sound present and S2 normal heart sound present <Yoseph Velasco MD - Last Filed: 09/19/21 20:18> GI: Inspection: Yes normal to inspection <Yoseph Velasco MD - Last Filed: 09/19/21 20:18> Palpation (GI): Soft to palpation, nontender and No hepatosplenomegaly present <Yoseph Velasco MD - Last Filed: 09/19/21 20:18> Auscultation: normal bowel sounds <Yoseph Velasco MD - Last Filed: 09/19/21 20:18> : General: Yes no CVA tenderness <Yoseph Velasco MD - Last Filed: 09/19/21 20:18> Back/Spine/Pelvis: Back: no CVA tenderness <Yoseph Velasco MD - Last Filed: 09/19/21 20:18> Skin: Other: multiple superficial lacerations to both arms, abdomen and legs, nothing that needs suturing <Yoseph Velasco MD - Last Filed: 09/19/21 20:18> Neuro: General: oriented to person and patient oriented x3 <Yoseph Velasco MD - Last Filed: 09/19/21 20:18> Cranial nerves: Yes CN's II-XII intact bilaterally <Yoseph Velasco MD - Last Filed: 09/19/21 20:18> Motor exam (neuro): 5/5 motor strength present throughout <Yoseph Velasco MD - Last Filed: 09/19/21 20:18> Sensory Exam: No Sensory deficit (Neuro) <Yoseph Velasco MD - Last Filed: 09/19/21 20:18> Extrem: General: Yes normal to inspection <Yoseph Velasco MD - Last Filed: 09/19/21 20:18> Psych: Appearance: grossly normal <Yoseph Velasco MD - Last Filed: 09/19/21 20:18> Course Reevaluation(s) Reevaluation #1: Patient placed in physician observation at 8:16pm The indication for observation is that the patient needs more time to see if her depression improves or she will need to be admitted. At this time the patient is well developed well nourished, lungs clear, CV RRR, abd nontender, neuro is intact <Yoseph Velasco MD - Last Filed: 09/19/21 20:18> Time: 20:18 <Yoseph Velasco MD - Last Filed: 09/19/21 20:18> Reevaluation #2: Physician observation continued. Patient is a inpatient bed search at this time. There were no acute overnight events. Her vital signs remained stable. Her neuro and mental status are at her baseline. Will continue monitor. <TIMI Lopez - Last Filed: 09/20/21 10:17> Time: 10:15 <TIMI Lopez - Last Filed: 09/20/21 10:17> MDM - Psych Lab Data Result diagrams: : 09/19/21 17:00 09/19/21 17:00 <Yoseph Velasco MD - Last Filed: 09/19/21 20:18> Labs: Lab Results 09/19/21 09/19/21 09/19/21 Range/Units 17:00 17:00 17:00 WBC 6.6 (4.8-10.8) X10*3/uL RBC 4.16 L (4.20-5.50) X10*6/uL Hgb 12.8 (12.0-16.0) g/dl Hct 38.4 (37.0-47.0) % MCV 92.3 (80.0-98.0) fL MCH 30.8 (27.0-33.0) pg MCHC 33.3 (31.0-35.0) g/dl RDW 12.1 (11.0-16.0) % Plt Count 247 (160-400) X10*3/uL MPV 9.8 (9.4-12.3) fL Immature Gran % (Auto) 0.3 (0.0-0.4) % Neut % (Auto) 62.8 (45-73) % Lymph % (Auto) 25.9 (20-40) % [place] % (Auto) 7.0 (2-11) % Eos % (Auto) 3.5 (0-4) % Baso % (Auto) 0.5 (0-2) % Lymph # (Auto) 1.7 (1.2-4.9) X10*3/uL [place] # (Auto) 0.5 (0.1-1.2) X10*3/uL Eos # (Auto) 0.2 (0.0-0.4) X10*3/uL Baso # (Auto) 0.0 (0.0-0.2) X10*3/uL Abs Immat Gran (auto) 0.02 (0.00-0.03) X10*3/uL Absolute Neuts (auto) 4.1 (2.0-8.3) x10*3/uL Absolute Nucleated RBC 0.000 (0.0-0.012) X10*3/uL Nucleated RBC % (auto) 0.0 (0.0-0.2) /100WBC Sodium 139 (135-145) mmol/L Potassium 3.9 (3.3-5.1) mmol/L Chloride 105 (96-108) mmol/L Carbon Dioxide 24 (22-29) mmol/L Anion Gap 14 (12-20) BUN 9 (9-16) mg/dL Creatinine 0.74 (0.5-1.4) mg/dL Estim Creat Clear Calc 104.8 Estimated GFR > 60 Random Glucose 84 (60-115) mg/dL Calcium 9.1 (8.4-10.2) mg/dL Total Bilirubin 0.3 (0.0-1.0) mg/dL AST 18 (5-31) U/L ALT 20 (0-31) U/L Alkaline Phosphatase 97 (39-117) U/L Total Protein 6.7 (6.5-8.0) g/dL Albumin 4.1 (3.5-5.0) g/dL Salicylates < 5.0 L (15-30) mg/dL Urine Opiates Screen (Not Detect) Urine Fentanyl Screen (Not Detect) Acetaminophen < 1 (<30) mcg/mL Ur Barbiturates Screen (Not Detect) Ur Phencyclidine Scrn (Not Detect) Ur Amphetamines Screen (Not Detect) U Benzodiazepines Scrn (Not Detect) Urine Cocaine Screen (Not Detect) U Marijuana (THC) Screen (Not Detect) Ethyl Alcohol < 10 mg/dL COVID-19 ([facility]) (Negative) COVID-19 Clin Com 09/19/21 09/19/21 Range/Units 18:53 20:16 WBC (4.8-10.8) X10*3/uL RBC (4.20-5.50) X10*6/uL Hgb (12.0-16.0) g/dl Hct (37.0-47.0) % MCV (80.0-98.0) fL MCH (27.0-33.0) pg MCHC (31.0-35.0) g/dl RDW (11.0-16.0) % Plt Count (160-400) X10*3/uL MPV (9.4-12.3) fL Immature Gran % (Auto) (0.0-0.4) % Neut % (Auto) (45-73) % Lymph % (Auto) (20-40) % [place] % (Auto) (2-11) % Eos % (Auto) (0-4) % Baso % (Auto) (0-2) % Lymph # (Auto) (1.2-4.9) X10*3/uL [place] # (Auto) (0.1-1.2) X10*3/uL Eos # (Auto) (0.0-0.4) X10*3/uL Baso # (Auto) (0.0-0.2) X10*3/uL Abs Immat Gran (auto) (0.00-0.03) X10*3/uL Absolute Neuts (auto) (2.0-8.3) x10*3/uL Absolute Nucleated RBC (0.0-0.012) X10*3/uL Nucleated RBC % (auto) (0.0-0.2) /100WBC Sodium (135-145) mmol/L Potassium (3.3-5.1) mmol/L Chloride (96-108) mmol/L Carbon Dioxide (22-29) mmol/L Anion Gap (12-20) BUN (9-16) mg/dL Creatinine (0.5-1.4) mg/dL Estim Creat Clear Calc Estimated GFR Random Glucose (60-115) mg/dL Calcium (8.4-10.2) mg/dL Total Bilirubin (0.0-1.0) mg/dL AST (5-31) U/L ALT (0-31) U/L Alkaline Phosphatase (39-117) U/L Total Protein (6.5-8.0) g/dL Albumin (3.5-5.0) g/dL Salicylates (15-30) mg/dL Urine Opiates Screen Not Detected (Not Detect) Urine Fentanyl Screen Not Detected (Not Detect) Acetaminophen (<30) mcg/mL Ur Barbiturates Screen Not Detected (Not Detect) Ur Phencyclidine Scrn Not Detected (Not Detect) Ur Amphetamines Screen Not Detected (Not Detect) U Benzodiazepines Scrn Not Detected (Not Detect) Urine Cocaine Screen Not Detected (Not Detect) U Marijuana (THC) Screen Not Detected (Not Detect) Ethyl Alcohol mg/dL COVID-19 ([facility]) Negative (Negative) COVID-19 Clin Com See Note <Yoseph Velasco MD - Last Filed: 09/19/21 20:18> Lab Results 09/19/21 09/19/21 09/19/21 Range/Units 17:00 17:00 17:00 WBC 6.6 (4.8-10.8) X10*3/uL RBC 4.16 L (4.20-5.50) X10*6/uL Hgb 12.8 (12.0-16.0) g/dl Hct 38.4 (37.0-47.0) % MCV 92.3 (80.0-98.0) fL MCH 30.8 (27.0-33.0) pg MCHC 33.3 (31.0-35.0) g/dl RDW 12.1 (11.0-16.0) % Plt Count 247 (160-400) X10*3/uL MPV 9.8 (9.4-12.3) fL Immature Gran % (Auto) 0.3 (0.0-0.4) % Neut % (Auto) 62.8 (45-73) % Lymph % (Auto) 25.9 (20-40) % [place] % (Auto) 7.0 (2-11) % Eos % (Auto) 3.5 (0-4) % Baso % (Auto) 0.5 (0-2) % Lymph # (Auto) 1.7 (1.2-4.9) X10*3/uL [place] # (Auto) 0.5 (0.1-1.2) X10*3/uL Eos # (Auto) 0.2 (0.0-0.4) X10*3/uL Baso # (Auto) 0.0 (0.0-0.2) X10*3/uL Abs Immat Gran (auto) 0.02 (0.00-0.03) X10*3/uL Absolute Neuts (auto) 4.1 (2.0-8.3) x10*3/uL Absolute Nucleated RBC 0.000 (0.0-0.012) X10*3/uL Nucleated RBC % (auto) 0.0 (0.0-0.2) /100WBC Sodium 139 (135-145) mmol/L Potassium 3.9 (3.3-5.1) mmol/L Chloride 105 (96-108) mmol/L Carbon Dioxide 24 (22-29) mmol/L Anion Gap 14 (12-20) BUN 9 (9-16) mg/dL Creatinine 0.74 (0.5-1.4) mg/dL Estim Creat Clear Calc 104.8 Estimated GFR > 60 Random Glucose 84 (60-115) mg/dL Calcium 9.1 (8.4-10.2) mg/dL Total Bilirubin 0.3 (0.0-1.0) mg/dL AST 18 (5-31) U/L ALT 20 (0-31) U/L Alkaline Phosphatase 97 (39-117) U/L Total Protein 6.7 (6.5-8.0) g/dL Albumin 4.1 (3.5-5.0) g/dL Salicylates < 5.0 L (15-30) mg/dL Urine Opiates Screen (Not Detect) Urine Fentanyl Screen (Not Detect) Acetaminophen < 1 (<30) mcg/mL Ur Barbiturates Screen (Not Detect) Ur Phencyclidine Scrn (Not Detect) Ur Amphetamines Screen (Not Detect) U Benzodiazepines Scrn (Not Detect) Urine Cocaine Screen (Not Detect) U Marijuana (THC) Screen (Not Detect) Ethyl Alcohol < 10 mg/dL COVID-19 ([facility]) (Negative) COVID-19 Clin Com 09/19/21 09/19/21 Range/Units 18:53 20:16 WBC (4.8-10.8) X10*3/uL RBC (4.20-5.50) X10*6/uL Hgb (12.0-16.0) g/dl Hct (37.0-47.0) % MCV (80.0-98.0) fL MCH (27.0-33.0) pg MCHC (31.0-35.0) g/dl RDW (11.0-16.0) % Plt Count (160-400) X10*3/uL MPV (9.4-12.3) fL Immature Gran % (Auto) (0.0-0.4) % Neut % (Auto) (45-73) % Lymph % (Auto) (20-40) % [place] % (Auto) (2-11) % Eos % (Auto) (0-4) % Baso % (Auto) (0-2) % Lymph # (Auto) (1.2-4.9) X10*3/uL [place] # (Auto) (0.1-1.2) X10*3/uL Eos # (Auto) (0.0-0.4) X10*3/uL Baso # (Auto) (0.0-0.2) X10*3/uL Abs Immat Gran (auto) (0.00-0.03) X10*3/uL Absolute Neuts (auto) (2.0-8.3) x10*3/uL Absolute Nucleated RBC (0.0-0.012) X10*3/uL Nucleated RBC % (auto) (0.0-0.2) /100WBC Sodium (135-145) mmol/L Potassium (3.3-5.1) mmol/L Chloride (96-108) mmol/L Carbon Dioxide (22-29) mmol/L Anion Gap (12-20) BUN (9-16) mg/dL Creatinine (0.5-1.4) mg/dL Estim Creat Clear Calc Estimated GFR Random Glucose (60-115) mg/dL Calcium (8.4-10.2) mg/dL Total Bilirubin (0.0-1.0) mg/dL AST (5-31) U/L ALT (0-31) U/L Alkaline Phosphatase (39-117) U/L Total Protein (6.5-8.0) g/dL Albumin (3.5-5.0) g/dL Salicylates (15-30) mg/dL Urine Opiates Screen Not Detected (Not Detect) Urine Fentanyl Screen Not Detected (Not Detect) Acetaminophen (<30) mcg/mL Ur Barbiturates Screen Not Detected (Not Detect) Ur Phencyclidine Scrn Not Detected (Not Detect) Ur Amphetamines Screen Not Detected (Not Detect) U Benzodiazepines Scrn Not Detected (Not Detect) Urine Cocaine Screen Not Detected (Not Detect) U Marijuana (THC) Screen Not Detected (Not Detect) Ethyl Alcohol mg/dL COVID-19 ([facility]) Negative (Negative) COVID-19 Clin Com See Note <TIMI Lopez - Last Filed: 09/20/21 10:17> Discharge Plan Discharge Clinical Impression: Suicidal ideation <Yoseph Velasco MD - Last Filed: 09/19/21 20:18> Prescriptions: No Action trazodone 150 mg tablet 150 mg PO BEDTIME RF: 0 polyethylene glycol 3350 [Miralax] 17 gram Powder In Packet 17 g PO DAILY PRN (Reason: Constipation) RF: 0 metformin 500 mg tablet 1 tab PO BID RF: 0 atorvastatin 10 mg tablet 1 tab PO DAILY RF: 0 pantoprazole 40 mg tablet,delayed release (DR/EC) 1 tab PO BID@0630,1630 RF: 0 verapamil 240 mg tablet extended release 1 tab PO BEDTIME RF: 0 montelukast 10 mg tablet 1 tab PO BEDTIME RF: 0 lisinopril 5 mg tablet 1 tab PO DAILY RF: 0 ferrous sulfate 325 mg (65 mg iron) tablet,delayed release (DR/EC) 1 tab PO DAILY RF: 0 Flovent HFA 110 mcg/actuation HFA aerosol inhaler 2 puff inhalation BID RF: 0 norethindrone (contraceptive) [Deblitane] 0.35 mg Tablet 0.35 mg PO DAILY RF: 0 albuterol sulfate [Ventolin HFA] 90 mcg/actuation HFA aerosol inhaler 2 puff inhalation Q4H PRN (Reason: Shortness Of Breath) RF: 0 prazosin 1 mg Capsule 3 mg PO BEDTIME 30 Days Qty: 90 RF: 0 fluoxetine 20 mg Capsule 60 mg PO DAILY 30 Days Qty: 90 RF: 0 clonazepam 0.5 mg Tablet 0.25 mg PO QID PRN (Reason: anxiety/AH) 30 Days Qty: 60 RF: 0 nicotine 21 mg/24 hr Patch 24 Hour 21 mg transdermal DAILY PRN (Reason: smoking cessation) 28 Days Qty: 28 RF: 0 benztropine 0.5 mg Tablet 0.5 mg PO BID PRN (Reason: EPS) 30 Days Qty: 60 RF: 0 hydroxyzine HCl 50 mg Tablet 50 mg PO QID PRN (Reason: Anxiety) 30 Days Qty: 120 RF: 0 chlorpromazine 25 mg Tablet 50 mg PO QID 30 Days Qty: 240 RF: 0 chlorpromazine 25 mg Tablet 50 mg PO DAILY PRN (Reason: agitation) 30 Days Qty: 30 RF: 0 clonidine HCl 0.1 mg tablet 0.1 mg PO BID@0830,1430 RF: 0 ibuprofen 600 mg Tablet 600 mg PO Q6H PRN (Reason: Mild Pain (Scale Score 1-4)) RF: 0 <Yoseph Velasco MD - Last Filed: 09/19/21 20:18>
[2021-09-19 17:21] LABS: Basophils Percent Auto 0.5 % (0-2); Eosinophils Absolute Auto 0.2 X10*3/uL (0.0-0.4); Eosinophils Percent Auto 3.5 % (0-4); Hematocrit 38.4 % (37.0-47.0); Hemoglobin 12.8 g/dl (12.0-16.0); Imm Gran Abs Auto 0.02 X10*3/uL (0.00-0.03); Imm Gran Pct Auto 0.3 % (0.0-0.4); Lymphocytes Absolute Auto 1.7 X10*3/uL (1.2-4.9); Lymphocytes Percent Auto 25.9 % (20-40); MANUAL DIFF FLAG NO; Mean Corpuscular HGB Conc 33.3 g/dl (31.0-35.0); Mean Corpuscular Hemoglobin 30.8 pg (27.0-33.0); Mean Corpuscular Volume 92.3 fL (80.0-98.0); Mean Platelet Volume 9.8 fL (9.4-12.3); Monocytes Absolute Auto 0.5 X10*3/uL (0.1-1.2); Neutrophils Absolute Auto 4.1 x10*3/uL (2.0-8.3); Neutrophils Percent Auto 62.8 % (45-73); Platelet Count 247 X10*3/uL (160-400); Red Blood Count 4.16 X10*6/uL (4.20-5.50); Red Cell Distribution Width 12.1 % (11.0-16.0); White Blood Count 6.6 X10*3/uL (4.8-10.8)
[2021-09-19 17:37] LABS: Ethanol < 10 mg/dL
[2021-09-19 17:41] LABS: Acetaminophen LAB < 1 mcg/mL (<30); Alanine Aminotransferase 20 U/L (0-31); Albumin Level 4.1 g/dL (3.5-5.0); Alkaline Phosphatase 97 U/L (39-117); Anion Gap 14 (12-20); Aspartate Amino Transferase 18 U/L (5-31); Bilirubin Total 0.3 mg/dL (0.0-1.0); Blood Urea Nitrogen 9 mg/dL (9-16); Calcium 9.1 mg/dL (8.4-10.2); Carbon Dioxide 24 mmol/L (22-29); Chloride 105 mmol/L (96-108); Creatinine Clr Calc Pharmacy 104.8; Estimated Glomerular Filt Rate > 60; Glucose Random 84 mg/dL (60-115); Potassium 3.9 mmol/L (3.3-5.1); Salicylate < 5.0 mg/dL (15-30); Sodium 139 mmol/L (135-145); Total Protein 6.7 g/dL (6.5-8.0)
[2021-09-19 19:19] LABS: Amphetamine Screen Urine Not Detected (Not Detect); Barbiturates, Urine Not Detected (Not Detect); Benzodiazepines Screen Urine Not Detected (Not Detect); Cannabinoid Screen Urine Not Detected (Not Detect); Cocaine Screen Urine Not Detected (Not Detect); Fentanyl, urine Not Detected (Not Detect); Opiate Screen Urine Not Detected (Not Detect); Phencyclidine Screen Urine Not Detected (Not Detect)
[2021-09-19 20:48] LABS: COVID-19 Test Negative (Negative)
[2021-09-19] MEDS: Montelukast Sodium 10 MG TABLET PO (21:27)
[2021-09-19] MEDS: hydrOXYzine HCL 50 MG TABLET PO (21:27)
[2021-09-19] MEDS: metFORMIN HCl 500 MG TABLET PO (21:27)
[2021-09-19] MEDS: chlorproMAZINE HCl 25 MG TABLET 50 MG PO (21:28)
[2021-09-20] VITALS (7 sets, daily range): BP systolic 103–129; BP diastolic 71–85; PULSE 80–96; RESP 16–18; TEMP 36.4–37.2; O2SAT 96–97
--- NOTE | 2021-09-20 | ECG_ITS ---
Test Reason : MEDICAL CLEARANCE Blood Pressure : / mmHG Vent. Rate : 086 BPM Atrial Rate : 086 BPM P-R Int : 162 ms QRS Dur : 086 ms QT Int : 374 ms P-R-T Axes : 058 053 062 degrees QTc Int : 447 ms Normal sinus rhythm Possible Left atrial enlargement Borderline ECG When compared with ECG of 18-AUG-2021 20:31, No significant change was found Referred By: Mojgan Hernandez Electronically Signed By:Fabricio Kay
--- NOTE | 2021-09-20 06:25 | PC.NURSE ---
Patient slept through the night, no distress observed/reported, behavior appropriate at this time, medication compliant, patient was evaluated by [facility], disposition is section 12 inpatient bed search, will continue to monitor.
[2021-09-20] MEDS: Omeprazole 20 MG CAPSULE.DR PO ×2 (06:42→17:00)
--- NOTE | 2021-09-20 06:56 | PC.NURSE ---
patient appears to remain asleep at present, respirations are even and unlabored, appears in no distress
[2021-09-20] MEDS: chlorproMAZINE HCl 25 MG TABLET 50 MG PO ×6 (07:57→21:04)
[2021-09-20] MEDS: metFORMIN HCl 500 MG TABLET PO ×2 (07:58→21:00)
[2021-09-20] MEDS: FLUoxetine HCl 20 MG CAPSULE 60 MG PO (07:58)
[2021-09-20] MEDS: lisinopriL 5 MG TABLET PO (07:58)
[2021-09-20] MEDS: cloNIDine HCL 0.1 MG TABLET PO ×2 (07:58→13:31)
[2021-09-20] MEDS: Ferrous Sulfate 324 MG TABLET.DR PO (07:59)
[2021-09-20] MEDS: Nicotine 21 MG PATCH.TD24 TRANSDERMA (08:03)
[2021-09-20] MEDS: hydrOXYzine HCL 50 MG TABLET PO (08:46)
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
[2021-09-20] MEDS: clonazePAM 0.5 MG TABLET PO (17:00)
--- NOTE | 2021-09-20 17:33 | PC.NURSE ---
Patient arrived on the unit at 14:23 from the emergency department pod escorted by RN and security. Patient signed a CV. Patient's vital signs upon admission were stable and with in normal limits. Patient is in a depressed hopeless mood and tearful, however cooperative with admission. Patient presents with command auditory hallucination. Patient reports It is my fathers voice and he is telling me to hurt myself and kill myself . Patient presents with superficial laceration to BUE, Abdomen, and left lower leg. Patient stated I have been cutting for 3 days straight . Patient reported a skin rash under the left breast as well. Patient states I am either going to kill myself or try to hurt myself any chance I can. And it is different this time because I am serious and want to do it. Last night in the POD I folded a blanket in half and tied it around my neck to strangle myself . Patient also reported that I have been making myself throw up after meals because I am fat . Patient reported that last time she made herself throw up was Sunday09/18/2021. Patient reports a recent trigger of the anniversary of my mothers was around 2 weeks ago, around . The MD was notified and ordered the patient to be on close observation. Patient agreed to contact for safety when having these thoughts of harming herself. Patient denies acute medical complaints.
[2021-09-20] MEDS: Prazosin HCL 1 MG CAPSULE 3 MG PO (20:59)
[2021-09-20] MEDS: Montelukast Sodium 10 MG TABLET PO (21:01)
[2021-09-20] MEDS: Atorvastatin Calcium 10 MG TABLET PO (21:01)
[2021-09-20] MEDS: traZODone HCL 50 MG TABLET 150 MG PO (21:02)
[2021-09-20] MEDS: VerapamiL HCL SR 240 MG TABLET.ER PO (21:04)
[2021-09-20] MEDS: Fluticasone Propionate 100 MCG BLST.W.DEV 2 PUFF INHALE (22:10)
[2021-09-21] MEDS: Omeprazole 20 MG CAPSULE.DR PO ×2 (05:46→16:43)
[2021-09-21 07:42] VITALS: BP 118/80; PULSE 73; RESP 17; TEMP 36.7; O2SAT 98
[2021-09-21] MEDS: Fluticasone Propionate 100 MCG BLST.W.DEV 2 PUFF INHALE ×2 (07:44→21:34)
[2021-09-21] MEDS: chlorproMAZINE HCl 25 MG TABLET 50 MG PO ×4 (07:44→21:55)
[2021-09-21 07:45] VITALS: BP 118/80; PULSE 73
[2021-09-21] MEDS: metFORMIN HCl 500 MG TABLET PO ×2 (07:45→21:55)
[2021-09-21] MEDS: lisinopriL 5 MG TABLET PO (07:45)
[2021-09-21] MEDS: Ferrous Sulfate 324 MG TABLET.DR PO (07:45)
[2021-09-21] MEDS: cloNIDine HCL 0.1 MG TABLET PO ×2 (07:45→13:33)
[2021-09-21] MEDS: FLUoxetine HCl 20 MG CAPSULE 40 MG PO (07:45)
[2021-09-21] MEDS: Nicotine 21 MG PATCH.TD24 TRANSDERMA (07:50)
[2021-09-21] MEDS: polyethylene glycoL 3350 17 GM POWD.PACK PO (08:28)
--- NOTE | 2021-09-21 08:54 | PC.NURSE ---
Skin/wound assessment completed. Patient has superficial scabbed cuts on bilateral arms, abdomen and legs. Patient also has fungal rash under bilateral breast. Interdry applied under both breast to absorb moisture and heal rash. No other skin issues noted at this time.
[2021-09-21] MEDS: chlorproMAZINE HCl 25 MG TABLET 75 MG PO ×2 (09:22→14:56)
[2021-09-21] MEDS: clonazePAM 0.5 MG TABLET PO ×2 (09:22→16:43)
--- NOTE | 2021-09-21 09:49 | PC.NURSE ---
PT states she thinks she already had a flu shot and is declining a flu shot at this time.
[2021-09-21 13:33] VITALS: BP 119/65; PULSE 86
--- NOTE | 2021-09-21 14:36 | P.PNPSI_ITS ---
Subjective Subjective Date of Service: 09/21/21 Reason For Visit: SEC 12,SI,SEEN IN COMMUNITY,ACTIVE BED SEARCH Interim History: pt up and about unit with 1:1 staff. easily engaged for inte rview. attending group. emphasizes that she is doing very poorly, is scared for herself, and that her urges and CAH to harm and kill herself are ego syntonic. she states KRISTI had suggested maybe going to [facility] would be a good option, and she whole-heartedly agrees. she states she has been there before, for about 6 months one time, and it was quite helpful for her. she feels the revolving door process she has been involved in for so long has not been helpful for her. MD states he will discuss plan with KRISTI. per staff, persistently saying she wants to hurt herself. severe CAH to harm/kill herself. slept well. Mental Status Exam Mental Status Exam Narrative: disheveled, poorly groomed, street clothes. no PMA/PMR today.. cooperative with interview. speech soft, nml rate, amount, latency. decreased prosody. thoughts linear and logical. affect constricted, normo-intense, non-labile. mood scared. +SI. no HI. CAH to kill and cut herself. Diagnostics Vital Signs (24Hr): Vital Signs - 24 hr 09/20/21 20:59 09/20/21 21:04 09/20/21 21:17 Temperature 97.6 F Pulse Rate 85 85 85 Respiratory Rate Blood Pressure 129/85 129/85 129/85 Pulse Oximetry 09/21/21 07:42 09/21/21 07:45 09/21/21 13:33 Temperature 98.0 F Pulse Rate 73 73 86 Respiratory Rate 17 Blood Pressure 118/80 118/80 119/65 Pulse Oximetry 98 BMI result Body Mass Index 35.4 Labs Results: 09/19/21 17:00 09/19/21 17:00 Labs: Laboratory Results - last 48 hr 09/19/21 09/19/21 09/19/21 17:00 17:00 17:00 WBC 6.6 RBC 4.16 L Hgb 12.8 Hct 38.4 MCV 92.3 MCH 30.8 MCHC 33.3 RDW 12.1 Plt Count 247 MPV 9.8 Immature Gran % (Auto) 0.3 Neut % (Auto) 62.8 Lymph % (Auto) 25.9 [place] % (Auto) 7.0 Eos % (Auto) 3.5 Baso % (Auto) 0.5 Lymph # (Auto) 1.7 [place] # (Auto) 0.5 Eos # (Auto) 0.2 Baso # (Auto) 0.0 Abs Immat Gran (auto) 0.02 Absolute Neuts (auto) 4.1 Absolute Nucleated RBC 0.000 Nucleated RBC % (auto) 0.0 Sodium 139 Potassium 3.9 Chloride 105 Carbon Dioxide 24 Anion Gap 14 BUN 9 Creatinine 0.74 Estim Creat Clear Calc 104.8 Estimated GFR > 60 Random Glucose 84 Calcium 9.1 Total Bilirubin 0.3 AST 18 ALT 20 Alkaline Phosphatase 97 Total Protein 6.7 Albumin 4.1 Salicylates < 5.0 L Urine Opiates Screen Urine Fentanyl Screen Acetaminophen < 1 Ur Barbiturates Screen Ur Phencyclidine Scrn Ur Amphetamines Screen U Benzodiazepines Scrn Urine Cocaine Screen U Marijuana (THC) Screen Ethyl Alcohol < 10 COVID-19 (NICK) [employer] 09/19/21 09/19/21 18:53 20:16 WBC RBC Hgb Hct MCV MCH MCHC RDW Plt Count MPV Immature Gran % (Auto) Neut % (Auto) Lymph % (Auto) [place] % (Auto) Eos % (Auto) Baso % (Auto) Lymph # (Auto) [place] # (Auto) Eos # (Auto) Baso # (Auto) Abs Immat Gran (auto) Absolute Neuts (auto) Absolute Nucleated RBC Nucleated RBC % (auto) Sodium Potassium Chloride Carbon Dioxide Anion Gap BUN Creatinine Estim Creat Clear Calc Estimated GFR Random Glucose Calcium Total Bilirubin AST ALT Alkaline Phosphatase Total Protein Albumin Salicylates Urine Opiates Screen Not Detected Urine Fentanyl Screen Not Detected Acetaminophen Ur Barbiturates Screen Not Detected Ur Phencyclidine Scrn Not Detected Ur Amphetamines Screen Not Detected U Benzodiazepines Scrn Not Detected Urine Cocaine Screen Not Detected U Marijuana (THC) Screen Not Detected Ethyl Alcohol COVID-19 (NICK) Negative COVID-19 [facility] [employer] See Note Medications Medications Current Medications Al Hydroxide/Mg Hydroxide (Magnesium Hydrox/Alum Hydrox 30 Ml Oral.Susp) 30 ml PO Q6H PRN PRN Reason: Heartburn/Nausea Albuterol Sulfate (Albuterol Sulfate 90 Mcg 8 Gm Inhaler) 2 puff INHALE Q4H PRN PRN Reason: Shortness Of Breath Atorvastatin Calcium (Atorvastatin Calcium 10 Mg Tablet) 10 mg PO BEDTIME [facility] Last Admin: 09/20/21 21:01 Dose: 10 mg Documented by: Benztropine Mesylate (Benztropine Mesylate 0.5 Mg Tablet) 0.5 mg PO BID PRN PRN Reason: EPS Chlorpromazine HCl (Chlorpromazine Hcl 25 Mg Tablet) 50 mg PO QID [facility] Last Admin: 09/21/21 13:33 Dose: 50 mg Documented by: Chlorpromazine HCl (Chlorpromazine Hcl 25 Mg Tablet) 75 mg PO Q4H PRN PRN Reason: agitation Last Admin: 09/21/21 09:22 Dose: 75 mg Documented by: Clonazepam (Clonazepam 0.5 Mg Tablet) 0.5 mg PO QID PRN PRN Reason: anxiety/AH Last Admin: 09/21/21 09:22 Dose: 0.5 mg Documented by: Clonidine HCl (Clonidine Hcl 0.1 Mg Tablet) 0.1 mg PO BID@0830,1430 [facility]; Protocol Last Admin: 09/21/21 13:33 Dose: 0.1 mg Documented by: Ferrous Sulfate (Ferrous Sulfate 324 Mg Tablet.Dr) 324 mg PO DAILY [facility] Last Admin: 09/21/21 07:45 Dose: 324 mg Documented by: Fluoxetine HCl (Fluoxetine Hcl 20 Mg Capsule) 40 mg PO DAILY [facility] Last Admin: 09/21/21 07:45 Dose: 40 mg Documented by: Fluticasone Propionate (Fluticasone Propionate 100 Mcg Blst.W.Dev) 2 puff INHALE RBID [facility] Last Admin: 09/21/21 07:44 Dose: 2 puff Documented by: Hydroxyzine HCl (Hydroxyzine Hcl 50 Mg Tablet) 50 mg PO QID PRN PRN Reason: Anxiety Last Admin: 09/20/21 08:46 Dose: 50 mg Documented by: Hydroxyzine HCl (Hydroxyzine Hcl 25 Mg Tablet) 25 mg PO BEDTIME PRN PRN Reason: Anxiety Ibuprofen (Ibuprofen 600 Mg Tablet) 600 mg PO Q6H PRN PRN Reason: Pain (Scale Score 1-3) Lisinopril (Lisinopril 5 Mg Tablet) 5 mg PO DAILY [facility]; Protocol Last Admin: 09/21/21 07:45 Dose: 5 mg Documented by: Magnesium Hydroxide (Milk Of Magnesia 30 Ml Oral.Susp) 30 ml PO DAILY PRN PRN Reason: Constipation Metformin HCl (Metformin Hcl 500 Mg Tablet) 500 mg PO BID [facility] Last Admin: 09/21/21 07:45 Dose: 500 mg Documented by: Montelukast Sodium (Montelukast Sodium 10 Mg Tablet) 10 mg PO BEDTIME [facility] Last Admin: 09/20/21 21:01 Dose: 10 mg Documented by: Nicotine (Nicotine 21 Mg Patch.Td24) 21 mg TRANSDERMA DAILY PRN PRN Reason: smoking cessation Last Admin: 09/21/21 07:50 Dose: 21 mg Documented by: Omeprazole (Omeprazole 20 Mg Capsule.Dr) 20 mg PO BID@0630,1630 [facility] Last Admin: 09/21/21 05:46 Dose: 20 mg Documented by: Polyethylene Glycol (Polyethylene Glycol 3350 17 Gm Powd.Pack) 17 gm PO DAILY PRN PRN Reason: Constipation Last Admin: 09/21/21 08:28 Dose: 17 gm Documented by: Prazosin HCl (Prazosin Hcl 1 Mg Capsule) 3 mg PO BEDTIME [facility]; Protocol Last Admin: 09/20/21 20:59 Dose: 3 mg Documented by: Trazodone HCl (Trazodone Hcl 50 Mg Tablet) 150 mg PO BEDTIME [facility] Last Admin: 09/20/21 21:02 Dose: 150 mg Documented by: Trazodone HCl (Trazodone Hcl 50 Mg Tablet) 50 mg PO BEDTIME PRN PRN Reason: Insomnia Verapamil HCl (Verapamil Hcl Sr 240 Mg Tablet.Er) 240 mg PO BEDTIME [facility]; Protocol Last Admin: 09/20/21 21:04 Dose: 240 mg Documented by: Allergies Allergies Allergy/AdvReac Type Severity Reaction Status Date / Time Fish Containing Products Allergy Severe ANAPHYLAXIS Verified 08/18/21 18:18 codeine [Codeine] Allergy Unknown RASH Verified 08/18/21 18:18 Penicillins Allergy Unknown RASH Verified 08/18/21 18:18 prednisone [Prednisone] Allergy Unknown RASH Verified 08/18/21 18:18 Sulfa (Sulfonamide Allergy Unknown RASH Verified 08/18/21 18:18 Antibiotics) [Sulfa (Sulfonamides)] azithromycin [AZITHROMYCIN] AdvReac Severe RASH Verified 08/18/21 18:18 nicotine AdvReac Unknown HEART Verified 08/18/21 18:18 PALPITATION TO NICOTINE GUM Seafood Allergy Severe ANAPHYLAXIS Uncoded 07/31/21 20:43 From Geodon Allergy Unknown DYSURIA, Uncoded 07/31/21 20:43 RASH Assessment & Plan Assessment & Plan (1) Suicidal ideation: Status: Acute Code(s): R45.851 - Suicidal ideations (2) PTSD (post-traumatic stress disorder): Status: Chronic Code(s): F43.10 - Post-traumatic stress disorder, unspecified (3) Borderline personality disorder: Status: Chronic Code(s): F60.3 - Borderline personality disorder (4) Depression: Status: Acute Code(s): F32.A - Depression, unspecified Assessment and Plan: continue home medications aside from the following changes: 1) decreased prozac from 60 mg daily to 40 mg daily 09/21 due to potential for activation and increase in SI. 2) increased klonopin PRNs from 0.25 mg QID to 0.5 mg QID 09/20 for acute anxiety. 3) increased thorazine PRNs from 50 mg each to 75 mg each 09/20 for CA[address] anxiety[address] on CO for safety, 1:1 as of 09/21. milieu therapy. T/C [facility] referral for long-term stabilization as pt has been in and out of the ED and inpatient units constantly the past year. I spent minutes with the patient and/or on the patient floor today, greater than?50% of which was spent counseling/coordinating care. Reason for contiued inpatient stay Substantial Risk for: harm to self, inability to function and rapid decompensation
--- NOTE | 2021-09-21 15:11 | MHC.CLN ---
NUTRITION CONSULT FOR SKIN. PATIENT WITH CUTS AND RASH UNDER BREASTS. NO PRESSURE AREAS. REVIEW OF WEIGHT HX SHOWS WEIGHT LOSS X 6 MONTHS -9.1%. HX OF DISORDERED EATING. FOLLOW UP WEEKLY.
[2021-09-21] MEDS: Ibuprofen 600 MG TABLET PO (17:28)
[2021-09-21 21:24] VITALS: BP 122/65; PULSE 90; RESP 18; TEMP 36.6; O2SAT 97
[2021-09-21] MEDS: Atorvastatin Calcium 10 MG TABLET PO (21:32)
[2021-09-21] MEDS: Prazosin HCL 1 MG CAPSULE 3 MG PO (21:55)
[2021-09-21] MEDS: Montelukast Sodium 10 MG TABLET PO (21:55)
[2021-09-21] MEDS: traZODone HCL 50 MG TABLET 150 MG PO (21:56)
[2021-09-21] MEDS: VerapamiL HCL SR 240 MG TABLET.ER PO (21:56)
[2021-09-22] MEDS: Omeprazole 20 MG CAPSULE.DR PO ×2 (05:38→16:54)
[2021-09-22] MEDS: hydrOXYzine HCL 50 MG TABLET PO (06:54)
[2021-09-22 07:00] VITALS: BMI 38.9
[2021-09-22] MEDS: Nicotine 21 MG PATCH.TD24 TRANSDERMA (08:45)
[2021-09-22 08:46] VITALS: BP 129/60; PULSE 88
[2021-09-22] MEDS: cloNIDine HCL 0.1 MG TABLET PO ×2 (08:46→13:20)
[2021-09-22] MEDS: lisinopriL 5 MG TABLET PO (08:46)
[2021-09-22] MEDS: chlorproMAZINE HCl 25 MG TABLET 50 MG PO ×4 (08:46→21:50)
[2021-09-22] MEDS: polyethylene glycoL 3350 17 GM POWD.PACK PO (08:46)
[2021-09-22] MEDS: Ferrous Sulfate 324 MG TABLET.DR PO (08:47)
[2021-09-22] MEDS: metFORMIN HCl 500 MG TABLET PO ×2 (08:47→21:25)
[2021-09-22] MEDS: FLUoxetine HCl 20 MG CAPSULE 40 MG PO (08:47)
[2021-09-22] MEDS: Fluticasone Propionate 100 MCG BLST.W.DEV 2 PUFF INHALE ×2 (08:51→21:23)
[2021-09-22 08:53] VITALS: BP 129/60; PULSE 88; RESP 16; TEMP 36.7; O2SAT 98
[2021-09-22] MEDS: chlorproMAZINE HCl 25 MG TABLET 75 MG PO (10:30)
[2021-09-22] MEDS: clonazePAM 0.5 MG TABLET PO (10:30)
--- NOTE | 2021-09-22 12:15 | HO.PSYCHPN ---
Subjective Subjective Date of Service: 09/22/21 Reason For Visit: SEC 12,SI,SEEN IN COMMUNITY,ACTIVE BED SEARCH Interim History: pt found resting in her room, easily rousable, 1:1 at bedside. reports she did not sleep well last night due to nightmares. brief conversation had with pt in which she averred the nursing report - strong ego-syntonic CAH to harm self continue, feeling unsafe. no substantial change from yesterday. would like referral to [facility]. per staff, having a lot of SI/SIBI. +CAH, wants to . asking for [facility] referral. Mental Status Exam Mental Status Exam Narrative: disheveled, poorly groomed. no PMA/PMR. cooperative with interview. speech soft, nml rate, amount, latency. decreased prosody. thoughts linear and logical. affect constricted, normo-intense, non-labile. +SI/SIBI. no HI. CAH to kill and cut herself. Diagnostics Vital Signs (24Hr): Vital Signs - 24 hr 09/21/21 13:33 09/21/21 21:24 09/22/21 08:46 Temperature 97.9 F Pulse Rate 86 90 88 Respiratory Rate 18 Blood Pressure 119/65 122/65 129/60 Pulse Oximetry 97 09/22/21 08:53 Temperature 98.1 F Pulse Rate 88 Respiratory Rate 16 Blood Pressure 129/60 Pulse Oximetry 98 BMI result Body Mass Index 38.9 Labs Results: 09/19/21 17:00 09/19/21 17:00 Medications Medications Current Medications Al Hydroxide/Mg Hydroxide (Magnesium Hydrox/Alum Hydrox 30 Ml Oral.Susp) 30 ml PO Q6H PRN PRN Reason: Heartburn/Nausea Albuterol Sulfate (Albuterol Sulfate 90 Mcg 8 Gm Inhaler) 2 puff INHALE Q4H PRN PRN Reason: Shortness Of Breath Atorvastatin Calcium (Atorvastatin Calcium 10 Mg Tablet) 10 mg PO BEDTIME [facility] Last Admin: 09/21/21 21:32 Dose: 10 mg Documented by: Benztropine Mesylate (Benztropine Mesylate 0.5 Mg Tablet) 0.5 mg PO BID PRN PRN Reason: EPS Chlorpromazine HCl (Chlorpromazine Hcl 25 Mg Tablet) 50 mg PO QID [facility] Last Admin: 09/22/21 08:46 Dose: 50 mg Documented by: Chlorpromazine HCl (Chlorpromazine Hcl 25 Mg Tablet) 75 mg PO Q4H PRN PRN Reason: agitation Last Admin: 09/22/21 10:30 Dose: 75 mg Documented by: Clonazepam (Clonazepam 0.5 Mg Tablet) 0.5 mg PO QID PRN PRN Reason: anxiety/AH Last Admin: 09/22/21 10:30 Dose: 0.5 mg Documented by: Clonidine HCl (Clonidine Hcl 0.1 Mg Tablet) 0.1 mg PO BID@0830,1430 [facility]; Protocol Last Admin: 09/22/21 08:46 Dose: 0.1 mg Documented by: Ferrous Sulfate (Ferrous Sulfate 324 Mg Tablet.Dr) 324 mg PO DAILY [facility] Last Admin: 09/22/21 08:47 Dose: 324 mg Documented by: Fluoxetine HCl (Fluoxetine Hcl 20 Mg Capsule) 40 mg PO DAILY [facility] Last Admin: 09/22/21 08:47 Dose: 40 mg Documented by: Fluticasone Propionate (Fluticasone Propionate 100 Mcg Blst.W.Dev) 2 puff [facility] Last Admin: 09/22/21 08:51 Dose: 2 puff Documented by: Hydroxyzine HCl (Hydroxyzine Hcl 50 Mg Tablet) 50 mg PO QID PRN PRN Reason: Anxiety Last Admin: 09/22/21 06:54 Dose: 50 mg Documented by: Hydroxyzine HCl (Hydroxyzine Hcl 25 Mg Tablet) 25 mg PO BEDTIME PRN PRN Reason: Anxiety Ibuprofen (Ibuprofen 600 Mg Tablet) 600 mg PO Q6H PRN PRN Reason: Pain (Scale Score 1-3) Last Admin: 09/21/21 17:28 Dose: 600 mg Documented by: Lisinopril (Lisinopril 5 Mg Tablet) 5 mg PO DAILY [facility]; Protocol Last Admin: 09/22/21 08:46 Dose: 5 mg Documented by: Magnesium Hydroxide (Milk Of Magnesia 30 Ml Oral.Susp) 30 ml PO DAILY PRN PRN Reason: Constipation Metformin HCl (Metformin Hcl 500 Mg Tablet) 500 mg PO BID [facility] Last Admin: 09/22/21 08:47 Dose: 500 mg Documented by: Montelukast Sodium (Montelukast Sodium 10 Mg Tablet) 10 mg PO BEDTIME [facility] Last Admin: 09/21/21 21:55 Dose: 10 mg Documented by: Nicotine (Nicotine 21 Mg Patch.Td24) 21 mg TRANSDERMA DAILY PRN PRN Reason: smoking cessation Last Admin: 09/22/21 08:45 Dose: 21 mg Documented by: Omeprazole (Omeprazole 20 Mg Capsule.Dr) 20 mg PO BID@0630,1630 [facility] Last Admin: 09/22/21 05:38 Dose: 20 mg Documented by: Polyethylene Glycol (Polyethylene Glycol 3350 17 Gm Powd.Pack) 17 gm PO DAILY PRN PRN Reason: Constipation Last Admin: 09/22/21 08:46 Dose: 17 gm Documented by: Prazosin HCl (Prazosin Hcl 1 Mg Capsule) 3 mg PO BEDTIME [facility]; Protocol Last Admin: 09/21/21 21:55 Dose: 3 mg Documented by: Trazodone HCl (Trazodone Hcl 50 Mg Tablet) 150 mg PO BEDTIME [facility] Last Admin: 09/21/21 21:56 Dose: 150 mg Documented by: Trazodone HCl (Trazodone Hcl 50 Mg Tablet) 50 mg PO BEDTIME PRN PRN Reason: Insomnia Verapamil HCl (Verapamil Hcl Sr 240 Mg Tablet.Er) 240 mg PO BEDTIME [facility]; Protocol Last Admin: 09/21/21 21:56 Dose: 240 mg Documented by: Allergies Allergies Allergy/AdvReac Type Severity Reaction Status Date / Time Fish Containing Products Allergy Severe ANAPHYLAXIS Verified 08/18/21 18:18 codeine [Codeine] Allergy Unknown RASH Verified 08/18/21 18:18 Penicillins Allergy Unknown RASH Verified 08/18/21 18:18 prednisone [Prednisone] Allergy Unknown RASH Verified 08/18/21 18:18 Sulfa (Sulfonamide Allergy Unknown RASH Verified 08/18/21 18:18 Antibiotics) [Sulfa (Sulfonamides)] azithromycin [AZITHROMYCIN] AdvReac Severe RASH Verified 08/18/21 18:18 nicotine AdvReac Unknown HEART Verified 08/18/21 18:18 PALPITATION TO NICOTINE GUM Seafood Allergy Severe ANAPHYLAXIS Uncoded 07/31/21 20:43 From Geodon Allergy Unknown DYSURIA, Uncoded 07/31/21 20:43 RASH Assessment & Plan Assessment & Plan (1) Suicidal ideation: Status: Acute Code(s): R45.851 - Suicidal ideations (2) PTSD (post-traumatic stress disorder): Status: Chronic Code(s): F43.10 - Post-traumatic stress disorder, unspecified (3) Borderline personality disorder: Status: Chronic Code(s): F60.3 - Borderline personality disorder (4) Depression: Status: Acute Code(s): F32.A - Depression, unspecified Assessment and Plan: continue home medications aside from the following changes: 1) decreased prozac from 60 mg daily to 40 mg daily 09/21 due to potential for activation and increase in SI. 2) increased klonopin PRNs from 0.25 mg QID to 0.5 mg QID 09/20 for acute anxiety. 3) increased thorazine PRNs from 50 mg each to 75 mg each 09/20 for CAH and anxiety. placed on CO for safety, 1:1 as of 09/21. milieu therapy. [facility] referral for long-term stabilization as pt has been in and out of the ED and inpatient units constantly the past year. I spent minutes with the patient and/or on the patient floor today, greater than?50% of which was spent counseling/coordinating care. Reason for contiued inpatient stay Substantial Risk for: harm to self, inability to function and rapid decompensation
[2021-09-22 13:20] VITALS: BP 127/72; PULSE 90
[2021-09-22 21:24] VITALS: BP 117/79; PULSE 76
[2021-09-22] MEDS: Prazosin HCL 1 MG CAPSULE 3 MG PO (21:24)
[2021-09-22] MEDS: traZODone HCL 50 MG TABLET 150 MG PO (21:24)
[2021-09-22 21:25] VITALS: BP 117/79; PULSE 76
[2021-09-22] MEDS: VerapamiL HCL SR 240 MG TABLET.ER PO (21:25)
[2021-09-22] MEDS: Montelukast Sodium 10 MG TABLET PO (21:25)
[2021-09-22] MEDS: Atorvastatin Calcium 10 MG TABLET PO (21:25)
[2021-09-22 21:30] VITALS: BP 117/79; PULSE 76; TEMP 36.7; O2SAT 95
[2021-09-23] MEDS: chlorproMAZINE HCl 25 MG TABLET 75 MG PO (01:45)
[2021-09-23] MEDS: clonazePAM 0.5 MG TABLET PO ×3 (01:45→18:53)
[2021-09-23] MEDS: Omeprazole 20 MG CAPSULE.DR PO ×2 (06:25→15:47)
[2021-09-23 08:11] VITALS: BP 117/74; PULSE 89; RESP 18; TEMP 36.6; O2SAT 97
[2021-09-23 08:12] VITALS: BP 117/74; PULSE 89
[2021-09-23] MEDS: metFORMIN HCl 500 MG TABLET PO ×2 (08:12→21:44)
[2021-09-23] MEDS: lisinopriL 5 MG TABLET PO (08:12)
[2021-09-23] MEDS: Fluticasone Propionate 100 MCG BLST.W.DEV 2 PUFF INHALE ×2 (08:12→21:54)
[2021-09-23] MEDS: chlorproMAZINE HCl 25 MG TABLET 50 MG PO ×4 (08:12→21:44)
[2021-09-23 08:13] VITALS: BP 117/74; PULSE 89
[2021-09-23] MEDS: Ferrous Sulfate 324 MG TABLET.DR PO (08:13)
[2021-09-23] MEDS: FLUoxetine HCl 20 MG CAPSULE 40 MG PO (08:13)
[2021-09-23] MEDS: cloNIDine HCL 0.1 MG TABLET PO ×2 (08:13→15:47)
[2021-09-23] MEDS: Nicotine 21 MG PATCH.TD24 TRANSDERMA (08:19)
[2021-09-23] MEDS: polyethylene glycoL 3350 17 GM POWD.PACK PO (08:20)
--- NOTE | 2021-09-23 11:10 | P.PNPSI_ITS ---
Subjective Subjective Date of Service: 09/23/21 Reason For Visit: SEC 12,SI,SEEN IN COMMUNITY,ACTIVE BED SEARCH Interim History: pt reports no change in her symptoms. continues to hear CAH to harm/kill herself, which continues to be ego syntonic. shows MD her notebook, wherein she has written her urges to hurt herself and how she is thinking to do it. agreeable to remain on 1:1 staffing. discussed [facility] a bit and informed pt it may be a difficult job getting her admitted there but we will look into it. agreeable to go on finger foods diet after thinking of and actually trying to harm herself with plasticware yesterday. agreeable to POC daily. reviewed the availability of PRNs for agitation/anxiety and the need to practice coping skills as well. per staff, reporting dep/anx 06/24 and CAH to harm/kill self. VH of father walking in the [place]. broke spoon yesterday and tried to harm herself with it. also broke plastic lid from meal tray and attempted self harm with it. some head banging as well. Mental Status Exam Mental Status Exam Narrative: disheveled, poorly groomed. no PMA/PMR. cooperative with interview. speech soft, nml rate, amount, latency. decreased prosody. thoughts linear and logical. affect constricted, normo-intense, non-labile. +SI/SIBI. no HI. CAH to kill and cut herself. Diagnostics Vital Signs (24Hr): Vital Signs - 24 hr 09/22/21 13:20 09/22/21 21:24 09/22/21 21:25 Temperature Pulse Rate 90 76 76 Respiratory Rate Blood Pressure 127/72 117/79 117/79 Pulse Oximetry 09/22/21 21:30 09/23/21 08:11 09/23/21 08:12 Temperature 98.0 F 97.8 F Pulse Rate 76 89 89 Respiratory Rate 18 Blood Pressure 117/79 117/74 117/74 Pulse Oximetry 95 97 09/23/21 08:13 Temperature Pulse Rate 89 Respiratory Rate Blood Pressure 117/74 Pulse Oximetry BMI result Body Mass Index 38.9 Labs Results: 09/19/21 17:00 09/19/21 17:00 Medications Medications Current Medications Al Hydroxide/Mg Hydroxide (Magnesium Hydrox/Alum Hydrox 30 Ml Oral.Susp) 30 ml PO Q6H PRN PRN Reason: Heartburn/Nausea Albuterol Sulfate (Albuterol Sulfate 90 Mcg 8 Gm Inhaler) 2 puff INHALE Q4H PRN PRN Reason: Shortness Of Breath Atorvastatin Calcium (Atorvastatin Calcium 10 Mg Tablet) 10 mg PO BEDTIME [facility] Last Admin: 09/22/21 21:25 Dose: 10 mg Documented by: Benztropine Mesylate (Benztropine Mesylate 0.5 Mg Tablet) 0.5 mg PO BID PRN PRN Reason: EPS Chlorpromazine HCl (Chlorpromazine Hcl 25 Mg Tablet) 50 mg PO QID [facility] Last Admin: 09/23/21 08:12 Dose: 50 mg Documented by: Chlorpromazine HCl (Chlorpromazine Hcl 25 Mg Tablet) 75 mg PO Q4H PRN PRN Reason: agitation Last Admin: 09/23/21 01:45 Dose: 75 mg Documented by: Clonazepam (Clonazepam 0.5 Mg Tablet) 0.5 mg PO QID PRN PRN Reason: anxiety/AH Last Admin: 09/23/21 11:06 Dose: 0.5 mg Documented by: Clonidine HCl (Clonidine Hcl 0.1 Mg Tablet) 0.1 mg PO BID@0830,1430 [facility]; Protocol Last Admin: 09/23/21 08:13 Dose: 0.1 mg Documented by: Ferrous Sulfate (Ferrous Sulfate 324 Mg Tablet.Dr) 324 mg PO DAILY [facility] Last Admin: 09/23/21 08:13 Dose: 324 mg Documented by: Fluoxetine HCl (Fluoxetine Hcl 20 Mg Capsule) 40 mg PO DAILY [facility] Last Admin: 09/23/21 08:13 Dose: 40 mg Documented by: Fluticasone Propionate (Fluticasone Propionate 100 Mcg Blst.W.Dev) 2 puff INHALE RBID [facility] Last Admin: 09/23/21 08:12 Dose: 2 puff Documented by: Hydroxyzine HCl (Hydroxyzine Hcl 50 Mg Tablet) 50 mg PO QID PRN PRN Reason: Anxiety Last Admin: 09/22/21 06:54 Dose: 50 mg Documented by: Hydroxyzine HCl (Hydroxyzine Hcl 25 Mg Tablet) 25 mg PO BEDTIME PRN PRN Reason: Anxiety Ibuprofen (Ibuprofen 600 Mg Tablet) 600 mg PO Q6H PRN PRN Reason: Pain (Scale Score 1-3) Last Admin: 09/21/21 17:28 Dose: 600 mg Documented by: Lisinopril (Lisinopril 5 Mg Tablet) 5 mg PO DAILY [facility]; Protocol Last Admin: 09/23/21 08:12 Dose: 5 mg Documented by: Magnesium Hydroxide (Milk Of Magnesia 30 Ml Oral.Susp) 30 ml PO DAILY PRN PRN Reason: Constipation Metformin HCl (Metformin Hcl 500 Mg Tablet) 500 mg PO BID [facility] Last Admin: 09/23/21 08:12 Dose: 500 mg Documented by: Montelukast Sodium (Montelukast Sodium 10 Mg Tablet) 10 mg PO BEDTIME [facility] Last Admin: 09/22/21 21:25 Dose: 10 mg Documented by: Nicotine (Nicotine 21 Mg Patch.Td24) 21 mg TRANSDERMA DAILY [facility] Omeprazole (Omeprazole 20 Mg Capsule.Dr) 20 mg PO BID@0630,1630 [facility] Last Admin: 09/23/21 06:25 Dose: 20 mg Documented by: Polyethylene Glycol (Polyethylene Glycol 3350 17 Gm Powd.Pack) 17 gm PO DAILY PRN PRN Reason: Constipation Last Admin: 09/23/21 08:20 Dose: 17 gm Documented by: Prazosin HCl (Prazosin Hcl 1 Mg Capsule) 3 mg PO BEDTIME [facility]; Protocol Last Admin: 09/22/21 21:24 Dose: 3 mg Documented by: Trazodone HCl (Trazodone Hcl 50 Mg Tablet) 150 mg PO BEDTIME [facility] Last Admin: 09/22/21 21:24 Dose: 150 mg Documented by: Trazodone HCl (Trazodone Hcl 50 Mg Tablet) 50 mg PO BEDTIME PRN PRN Reason: Insomnia Verapamil HCl (Verapamil Hcl Sr 240 Mg Tablet.Er) 240 mg PO BEDTIME [facility]; Protocol Last Admin: 09/22/21 21:25 Dose: 240 mg Documented by: Allergies Allergies Allergy/AdvReac Type Severity Reaction Status Date / Time Fish Containing Products Allergy Severe ANAPHYLAXIS Verified 08/18/21 18:18 codeine [Codeine] Allergy Unknown RASH Verified 08/18/21 18:18 Penicillins Allergy Unknown RASH Verified 08/18/21 18:18 prednisone [Prednisone] Allergy Unknown RASH Verified 08/18/21 18:18 Sulfa (Sulfonamide Allergy Unknown RASH Verified 08/18/21 18:18 Antibiotics) [Sulfa (Sulfonamides)] azithromycin [AZITHROMYCIN] AdvReac Severe RASH Verified 08/18/21 18:18 nicotine AdvReac Unknown HEART Verified 08/18/21 18:18 PALPITATION TO NICOTINE GUM Seafood Allergy Severe ANAPHYLAXIS Uncoded 07/31/21 20:43 From Geodon Allergy Unknown DYSURIA, Uncoded 07/31/21 20:43 RASH Assessment & Plan Assessment & Plan (1) Suicidal ideation: Status: Acute Code(s): R45.851 - Suicidal ideations (2) PTSD (post-traumatic stress disorder): Status: Chronic Code(s): F43.10 - Post-traumatic stress disorder, unspecified (3) Borderline personality disorder: Status: Chronic Code(s): F60.3 - Borderline personality disorder (4) Depression: Status: Acute Code(s): F32.A - Depression, unspecified Assessment and Plan: continue home medications aside from the following changes: 1) decreased prozac from 60 mg daily to 40 mg daily 09/21 due to potential for activation and increase in SI. 2) increased klonopin PRNs from 0.25 mg QID to 0.5 mg QID 09/20 for acute anxiety. 3) increased thorazine PRNs from 50 mg each to 75 mg each 09/20 for CAH and anxiety. placed on CO for safety, 1:1 as of 09/21. milieu therapy. investigate [facility] referral for long-term stabilization as pt has been in and out of the ED and inpatient units constantly the past year. I spent minutes with the patient and/or on the patient floor today, greater than?50% of which was spent counseling/coordinating care. Reason for contiued inpatient stay Substantial Risk for: harm to self, inability to function and rapid decompensation
[2021-09-23] MEDS: Milk of Magnesia 30 ML ORAL.SUSP PO (13:18)
[2021-09-23 15:47] VITALS: BP 126/60; PULSE 86
--- NOTE | 2021-09-23 16:57 | PC.NURSE ---
In the morning patient broke a plastic spoon and was reluctant to give it to staff, but after some persuasion it was given to staff. Then in the later part of the morning Patient broke the plastic top to a dessert container. Again patient was reluctant to give to staff but with some reminder she handed it over.
[2021-09-23 18:00] VITALS: BP 120/59; PULSE 86; RESP 16; TEMP 36.5; O2SAT 95
[2021-09-23 21:44] VITALS: BP 120/59; PULSE 86
[2021-09-23] MEDS: VerapamiL HCL SR 240 MG TABLET.ER PO (21:44)
[2021-09-23] MEDS: hydrOXYzine HCL 50 MG TABLET PO (21:44)
[2021-09-23] MEDS: Prazosin HCL 1 MG CAPSULE 3 MG PO (21:44)
[2021-09-23] MEDS: traZODone HCL 50 MG TABLET 150 MG PO (21:45)
[2021-09-23] MEDS: Benztropine Mesylate 0.5 MG TABLET PO (21:45)
[2021-09-23] MEDS: Montelukast Sodium 10 MG TABLET PO (21:45)
[2021-09-23] MEDS: Atorvastatin Calcium 10 MG TABLET PO (21:45)
[2021-09-24] MEDS: Nicotine 21 MG PATCH.TD24 TRANSDERMA (08:34)
[2021-09-24 08:35] VITALS: BP 109/60; PULSE 100; RESP 16; TEMP 36.7; O2SAT 98
[2021-09-24] MEDS: Fluticasone Propionate 100 MCG BLST.W.DEV 2 PUFF INHALE ×2 (08:35→20:26)
[2021-09-24] MEDS: Ferrous Sulfate 324 MG TABLET.DR PO (08:37)
[2021-09-24] MEDS: clonazePAM 0.5 MG TABLET PO (08:37)
[2021-09-24] MEDS: chlorproMAZINE HCl 25 MG TABLET 50 MG PO ×4 (08:37→20:25)
[2021-09-24] MEDS: Omeprazole 20 MG CAPSULE.DR PO ×2 (08:37→16:35)
[2021-09-24 08:38] VITALS: BP 109/60; PULSE 100
[2021-09-24] MEDS: FLUoxetine HCl 20 MG CAPSULE 40 MG PO (08:38)
[2021-09-24] MEDS: metFORMIN HCl 500 MG TABLET PO ×2 (08:38→20:24)
[2021-09-24] MEDS: cloNIDine HCL 0.1 MG TABLET PO ×2 (08:38→15:25)
[2021-09-24] MEDS: lisinopriL 5 MG TABLET PO (08:38)
[2021-09-24 08:46] LABS: Glucose, Whole Blood 101 mg/dL (60-115)
[2021-09-24] MEDS: chlorproMAZINE HCl 25 MG TABLET 75 MG PO (10:57)
[2021-09-24] MEDS: hydrOXYzine HCL 50 MG TABLET PO (12:23)
[2021-09-24 15:25] VITALS: BP 119/75; PULSE 80
[2021-09-24 20:24] VITALS: BP 129/67; PULSE 75
[2021-09-24] MEDS: VerapamiL HCL SR 240 MG TABLET.ER PO (20:24)
[2021-09-24] MEDS: Montelukast Sodium 10 MG TABLET PO (20:24)
[2021-09-24] MEDS: traZODone HCL 50 MG TABLET 150 MG PO (20:24)
[2021-09-24 20:25] VITALS: BP 129/67; PULSE 75
[2021-09-24] MEDS: Atorvastatin Calcium 10 MG TABLET PO (20:25)
[2021-09-24] MEDS: Prazosin HCL 1 MG CAPSULE 3 MG PO (20:25)
[2021-09-24 20:28] VITALS: TEMP 36.3; O2SAT 97
[2021-09-24] MEDS: Nystatin Cream 15 GM TUBE 1 APPL TOPICAL (20:28)
[2021-09-25] VITALS (7 sets, daily range): BP systolic 98–128; BP diastolic 56–86; PULSE 80–89; RESP 16–18; TEMP 36.7–36.8; O2SAT 96–97
[2021-09-25] MEDS: Fluticasone Propionate 100 MCG BLST.W.DEV 2 PUFF INHALE ×2 (09:28→21:06)
[2021-09-25] MEDS: Nicotine 21 MG PATCH.TD24 TRANSDERMA (09:28)
[2021-09-25 09:29] LABS: Glucose, Whole Blood 131 mg/dL (60-115)
[2021-09-25] MEDS: Omeprazole 20 MG CAPSULE.DR PO ×2 (09:29→17:23)
[2021-09-25] MEDS: FLUoxetine HCl 20 MG CAPSULE 40 MG PO (09:30)
[2021-09-25] MEDS: metFORMIN HCl 500 MG TABLET PO ×2 (09:30→21:08)
[2021-09-25] MEDS: chlorproMAZINE HCl 25 MG TABLET 50 MG PO ×4 (09:30→21:06)
[2021-09-25] MEDS: Ferrous Sulfate 324 MG TABLET.DR PO (09:31)
[2021-09-25] MEDS: Nystatin Cream 15 GM TUBE 1 APPL TOPICAL ×2 (09:33→21:06)
[2021-09-25] MEDS: cloNIDine HCL 0.1 MG TABLET PO ×2 (11:05→14:25)
[2021-09-25] MEDS: chlorproMAZINE HCl 25 MG TABLET 75 MG PO (11:08)
[2021-09-25] MEDS: Albuterol Sulfate 90 MCG 8 GM INHALER 2 PUFF INHALE (11:55)
--- NOTE | 2021-09-25 12:55 | HO.PSYCHPN ---
Subjective Subjective Date of Service: 09/25/21 Reason For Visit: SEC 12,SI,SEEN IN COMMUNITY,ACTIVE BED SEARCH Subjective Notes: Conditional Voluntary Interim History: Pt reports having intermittent SI with plan and intent to engage in SIB like scratching self, or banging head. Pt continued on 1:1 for safety. Pt reports sleeping and eating well. 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 Pt reports hearing AH of her father. Pt reports feeling very hopeless, and tired of feeling this way for so long. Medication Compliance: Yes Side effects from medications: No Diagnostics Vital Signs (24Hr): Vital Signs - 24 hr 09/24/21 15:25 09/24/21 20:24 09/24/21 20:25 Temperature Pulse Rate 80 75 75 Respiratory Rate Blood Pressure 119/75 129/67 129/67 Pulse Oximetry 09/24/21 20:28 09/25/21 09:00 09/25/21 10:30 Temperature 97.3 F 98.0 F Pulse Rate 88 89 Respiratory Rate 16 Blood Pressure 98/56 L 115/86 Pulse Oximetry 97 96 09/25/21 11:05 Temperature Pulse Rate 89 Respiratory Rate Blood Pressure 115/86 Pulse Oximetry BMI result Body Mass Index 38.9 Labs Results: 09/19/21 17:00 09/19/21 17:00 Labs: Laboratory Results - last 48 hr 09/24/21 09/25/21 08:33 09:24 POC Glucose 101 131 H Medications Medications Current Medications Al Hydroxide/Mg Hydroxide (Magnesium Hydrox/Alum Hydrox 30 Ml Oral.Susp) 30 ml PO Q6H PRN PRN Reason: Heartburn/Nausea Albuterol Sulfate (Albuterol Sulfate 90 Mcg 8 Gm Inhaler) 2 puff INHALE Q4H PRN PRN Reason: Shortness Of Breath Last Admin: 09/25/21 11:55 Dose: 2 puff Documented by: Atorvastatin Calcium (Atorvastatin Calcium 10 Mg Tablet) 10 mg PO BEDTIME [facility] Last Admin: 09/24/21 20:25 Dose: 10 mg Documented by: Benztropine Mesylate (Benztropine Mesylate 0.5 Mg Tablet) 0.5 mg PO BID PRN PRN Reason: EPS Last Admin: 09/23/21 21:45 Dose: 0.5 mg Documented by: Chlorpromazine HCl (Chlorpromazine Hcl 25 Mg Tablet) 50 mg PO QID [facility] Last Admin: 09/25/21 09:30 Dose: 50 mg Documented by: Chlorpromazine HCl (Chlorpromazine Hcl 25 Mg Tablet) 75 mg PO Q4H PRN PRN Reason: agitation Last Admin: 09/25/21 11:08 Dose: 75 mg Documented by: Clonazepam (Clonazepam 0.5 Mg Tablet) 0.5 mg PO QID PRN PRN Reason: anxiety/AH Last Admin: 09/24/21 08:37 Dose: 0.5 mg Documented by: Clonidine HCl (Clonidine Hcl 0.1 Mg Tablet) 0.1 mg PO BID@0830,1430 [facility]; Protocol Last Admin: 09/25/21 11:05 Dose: 0.1 mg Documented by: Ferrous Sulfate (Ferrous Sulfate 324 Mg Tablet.Dr) 324 mg PO DAILY [facility] Last Admin: 09/25/21 09:31 Dose: 324 mg Documented by: Fluoxetine HCl (Fluoxetine Hcl 20 Mg Capsule) 40 mg PO DAILY [facility] Last Admin: 09/25/21 09:30 Dose: 40 mg Documented by: Fluticasone Propionate (Fluticasone Propionate 100 Mcg Blst.W.Dev) 2 puff INHALE RBID [facility] Last Admin: 09/25/21 09:28 Dose: 2 puff Documented by: Hydroxyzine HCl (Hydroxyzine Hcl 50 Mg Tablet) 50 mg PO QID PRN PRN Reason: Anxiety Last Admin: 09/24/21 12:23 Dose: 50 mg Documented by: Hydroxyzine HCl (Hydroxyzine Hcl 25 Mg Tablet) 25 mg PO BEDTIME PRN PRN Reason: Anxiety Ibuprofen (Ibuprofen 600 Mg Tablet) 600 mg PO Q6H PRN PRN Reason: Pain (Scale Score 1-3) Last Admin: 09/21/21 17:28 Dose: 600 mg Documented by: Lisinopril (Lisinopril 5 Mg Tablet) 5 mg PO DAILY [facility]; Protocol Last Admin: 09/25/21 09:00 Dose: Not Given Documented by: Magnesium Hydroxide (Milk Of Magnesia 30 Ml Oral.Susp) 30 ml PO DAILY PRN PRN Reason: Constipation Last Admin: 09/23/21 13:18 Dose: 30 ml Documented by: Metformin HCl (Metformin Hcl 500 Mg Tablet) 500 mg PO BID [facility] Last Admin: 09/25/21 09:30 Dose: 500 mg Documented by: Montelukast Sodium (Montelukast Sodium 10 Mg Tablet) 10 mg PO BEDTIME [facility] Last Admin: 09/24/21 20:24 Dose: 10 mg Documented by: Nicotine (Nicotine 21 Mg Patch.Td24) 21 mg TRANSDERMA DAILY [facility] Last Admin: 09/25/21 09:28 Dose: 21 mg Documented by: Nystatin (Nystatin Cream 15 Gm Tube) 1 appl TOPICAL BID [facility]; Protocol Last Admin: 09/25/21 09:33 Dose: 1 appl Documented by: Omeprazole (Omeprazole 20 Mg Capsule.Dr) 20 mg PO BID@0630,1630 [facility] Last Admin: 09/25/21 09:29 Dose: 20 mg Documented by: Polyethylene Glycol (Polyethylene Glycol 3350 17 Gm Powd.Pack) 17 gm PO DAILY PRN PRN Reason: Constipation Last Admin: 09/23/21 08:20 Dose: 17 gm Documented by: Prazosin HCl (Prazosin Hcl 1 Mg Capsule) 3 mg PO BEDTIME [facility]; Protocol Last Admin: 09/24/21 20:25 Dose: 3 mg Documented by: Trazodone HCl (Trazodone Hcl 50 Mg Tablet) 150 mg PO BEDTIME [facility] Last Admin: 09/24/21 20:24 Dose: 150 mg Documented by: Trazodone HCl (Trazodone Hcl 50 Mg Tablet) 50 mg PO BEDTIME PRN PRN Reason: Insomnia Verapamil HCl (Verapamil Hcl Sr 240 Mg Tablet.Er) 240 mg PO BEDTIME [facility]; Protocol Last Admin: 09/24/21 20:24 Dose: 240 mg Documented by: Allergies Allergies Allergy/AdvReac Type Severity Reaction Status Date / Time Fish Containing Products Allergy Severe ANAPHYLAXIS Verified 08/18/21 18:18 codeine [Codeine] Allergy Unknown RASH Verified 08/18/21 18:18 Penicillins Allergy Unknown RASH Verified 08/18/21 18:18 prednisone [Prednisone] Allergy Unknown RASH Verified 08/18/21 18:18 Sulfa (Sulfonamide Allergy Unknown RASH Verified 08/18/21 18:18 Antibiotics) [Sulfa (Sulfonamides)] azithromycin [AZITHROMYCIN] AdvReac Severe RASH Verified 08/18/21 18:18 nicotine AdvReac Unknown HEART Verified 08/18/21 18:18 PALPITATION TO NICOTINE GUM Seafood Allergy Severe ANAPHYLAXIS Uncoded 07/31/21 20:43 From Geodon Allergy Unknown DYSURIA, Uncoded 07/31/21 20:43 RASH Assessment & Plan Assessment & Plan (1) Suicidal ideation: Status: Acute Code(s): R45.851 - Suicidal ideations (2) PTSD (post-traumatic stress disorder): Status: Chronic Code(s): F43.10 - Post-traumatic stress disorder, unspecified (3) Borderline personality disorder: Status: Chronic Code(s): F60.3 - Borderline personality disorder (4) Depression: Status: Acute Code(s): F32.A - Depression, unspecified Assessment and Plan: continue home medications aside from the following changes: 1) decreased prozac from 60 mg daily to 40 mg daily 09/21 due to potential for activation and increase in SI. 2) increased klonopin PRNs from 0.25 mg QID to 0.5 mg QID 09/20 for acute anxiety. 3) increased thorazine PRNs from 50 mg each to 75 mg each 09/20 for CAH and anxiety. placed on CO for safety, 1:1 as of 09/21. milieu therapy. investigate [facility] referral for long-term stabilization as pt has been in and out of the ED and inpatient units constantly the past year. I spent minutes with the patient and/or on the patient floor today, greater than?50% of which was spent counseling/coordinating care. Reason for contiued inpatient stay Substantial Risk for: harm to self and inability to function
[2021-09-25] MEDS: traZODone HCL 50 MG TABLET 150 MG PO (21:07)
[2021-09-25] MEDS: Prazosin HCL 1 MG CAPSULE 3 MG PO (21:07)
[2021-09-25] MEDS: Atorvastatin Calcium 10 MG TABLET PO (21:08)
[2021-09-25] MEDS: VerapamiL HCL SR 240 MG TABLET.ER PO (21:08)
[2021-09-25] MEDS: Montelukast Sodium 10 MG TABLET PO (21:08)
[2021-09-26] MEDS: Omeprazole 20 MG CAPSULE.DR PO ×2 (06:25→16:59)
[2021-09-26 08:08] LABS: Glucose, Whole Blood 103 mg/dL (60-115)
[2021-09-26 08:16] VITALS: BP 119/85; PULSE 93; RESP 17; TEMP 36.5; O2SAT 94
[2021-09-26] MEDS: Nicotine 21 MG PATCH.TD24 TRANSDERMA (08:19)
[2021-09-26] MEDS: Fluticasone Propionate 100 MCG BLST.W.DEV 2 PUFF INHALE ×2 (08:20→20:08)
[2021-09-26] MEDS: Albuterol Sulfate 90 MCG 8 GM INHALER 2 PUFF INHALE ×2 (08:20→20:08)
[2021-09-26 08:21] VITALS: BP 119/85; PULSE 93
[2021-09-26] MEDS: cloNIDine HCL 0.1 MG TABLET PO ×2 (08:21→14:03)
[2021-09-26] MEDS: FLUoxetine HCl 20 MG CAPSULE 40 MG PO (08:21)
[2021-09-26] MEDS: chlorproMAZINE HCl 25 MG TABLET 50 MG PO ×4 (08:22→20:11)
[2021-09-26] MEDS: Ferrous Sulfate 324 MG TABLET.DR PO (08:22)
[2021-09-26] MEDS: metFORMIN HCl 500 MG TABLET PO ×2 (08:22→20:10)
[2021-09-26 08:23] VITALS: BP 119/85; PULSE 93
[2021-09-26] MEDS: lisinopriL 5 MG TABLET PO (08:23)
[2021-09-26 09:17] LABS: Anion Gap 13 (12-20); Blood Urea Nitrogen 20 mg/dL (9-16); Calcium 9.9 mg/dL (8.4-10.2); Carbon Dioxide 25 mmol/L (22-29); Chloride 102 mmol/L (96-108); Creatinine Clr Calc Pharmacy 98.3; Estimated Glomerular Filt Rate > 60; Glucose Random 100 mg/dL (60-115); Potassium 4.1 mmol/L (3.3-5.1); Sodium 136 mmol/L (135-145)
[2021-09-26] MEDS: Nystatin Cream 15 GM TUBE 1 APPL TOPICAL ×2 (09:42→20:09)
[2021-09-26] MEDS: hydrOXYzine HCL 50 MG TABLET PO ×2 (09:42→18:20)
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
[2021-09-26 14:03] VITALS: BP 118/68; PULSE 93
--- NOTE | 2021-09-26 16:07 | MHC.CLN ---
F/U FINGER FOODS DUE TO PATIENT ATTEMPTING TO HARD SELF WITH PLASTIC ALLEN AND PLASTIC LIDS. 1:1 WITH MEALS. KETCHEN AWARE OF FINGER FOODS AND TO NOT SEND PLASTIC ALLEN.
--- NOTE | 2021-09-26 16:09 | MHC.CLN ---
F/U FINGER FOODS SINCE PATIENT ATTEMPTING TO HARM SELF WITH PLASTIC ALLEN. KITCHEN AWARE TO NOT SEND PLASTIC UTENSILS. PATIENT TAKING METFORMIN BID. FOLLOW BLOOD SUGARS. DIET=REGULAR AND CONSIDER THERAPEUTIC DIET NEEDED.
[2021-09-26] MEDS: chlorproMAZINE HCl 25 MG TABLET 75 MG PO ×2 (18:20→23:51)
[2021-09-26 20:07] VITALS: BP 131/82; PULSE 98; RESP 17; TEMP 36.6; O2SAT 97
[2021-09-26] MEDS: traZODone HCL 50 MG TABLET 150 MG PO (20:09)
[2021-09-26 20:10] VITALS: BP 131/82; PULSE 98
[2021-09-26] MEDS: Prazosin HCL 1 MG CAPSULE 3 MG PO (20:10)
[2021-09-26] MEDS: Atorvastatin Calcium 10 MG TABLET PO (20:10)
[2021-09-26] MEDS: VerapamiL HCL SR 240 MG TABLET.ER PO (20:10)
[2021-09-26] MEDS: Montelukast Sodium 10 MG TABLET PO (20:11)
[2021-09-26] MEDS: traZODone HCL 50 MG TABLET PO (23:52)
[2021-09-26] MEDS: Benztropine Mesylate 0.5 MG TABLET PO (23:52)
[2021-09-27] VITALS (7 sets, daily range): BP systolic 117–137; BP diastolic 64–72; PULSE 80–86; RESP 18; TEMP 36.2–36.4; O2SAT 96–97
[2021-09-27] MEDS: Omeprazole 20 MG CAPSULE.DR PO ×2 (05:49→16:05)
[2021-09-27 08:07] LABS: Glucose, Whole Blood 115 mg/dL (60-115)
[2021-09-27] MEDS: cloNIDine HCL 0.1 MG TABLET PO ×2 (08:07→15:02)
[2021-09-27] MEDS: FLUoxetine HCl 20 MG CAPSULE 40 MG PO (08:08)
[2021-09-27] MEDS: metFORMIN HCl 500 MG TABLET PO ×2 (08:08→21:07)
[2021-09-27] MEDS: chlorproMAZINE HCl 25 MG TABLET 50 MG PO ×4 (08:08→21:08)
[2021-09-27] MEDS: lisinopriL 5 MG TABLET PO (08:08)
[2021-09-27] MEDS: Ferrous Sulfate 324 MG TABLET.DR PO (08:08)
[2021-09-27] MEDS: Fluticasone Propionate 100 MCG BLST.W.DEV 2 PUFF INHALE ×2 (08:10→21:10)
[2021-09-27] MEDS: Nystatin Cream 15 GM TUBE 1 APPL TOPICAL ×2 (08:11→21:10)
[2021-09-27] MEDS: Nicotine 21 MG PATCH.TD24 TRANSDERMA (08:20)
[2021-09-27] MEDS: Ibuprofen 600 MG TABLET PO (17:52)
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
[2021-09-27] MEDS: Atorvastatin Calcium 10 MG TABLET PO (21:08)
[2021-09-27] MEDS: traZODone HCL 50 MG TABLET 150 MG PO (21:08)
[2021-09-27] MEDS: Prazosin HCL 1 MG CAPSULE 3 MG PO (21:08)
[2021-09-27] MEDS: VerapamiL HCL SR 240 MG TABLET.ER PO (21:09)
[2021-09-27] MEDS: Montelukast Sodium 10 MG TABLET PO (21:09)
[2021-09-28] VITALS (7 sets, daily range): BP systolic 113–133; BP diastolic 71–89; PULSE 88–104; RESP 16; TEMP 36.4–37; O2SAT 96
--- NOTE | 2021-09-28 00:17 | PC.NURSE ---
Safety plan-on 5 minute checks, Initiated and wrote own safety plan. Patient has copy as well as staff.
[2021-09-28] MEDS: Omeprazole 20 MG CAPSULE.DR PO ×2 (06:24→16:49)
[2021-09-28 08:58] LABS: Glucose, Whole Blood 124 mg/dL (60-115)
[2021-09-28] MEDS: Nicotine 21 MG PATCH.TD24 TRANSDERMA (09:02)
[2021-09-28] MEDS: cloNIDine HCL 0.1 MG TABLET PO ×2 (09:03→14:31)
[2021-09-28] MEDS: Ferrous Sulfate 324 MG TABLET.DR PO (09:03)
[2021-09-28] MEDS: metFORMIN HCl 500 MG TABLET PO ×2 (09:04→21:17)
[2021-09-28] MEDS: FLUoxetine HCl 20 MG CAPSULE 40 MG PO (09:04)
[2021-09-28] MEDS: lisinopriL 5 MG TABLET PO (09:04)
[2021-09-28] MEDS: chlorproMAZINE HCl 25 MG TABLET 50 MG PO ×4 (09:04→21:17)
[2021-09-28] MEDS: Fluticasone Propionate 100 MCG BLST.W.DEV 2 PUFF INHALE ×2 (09:08→21:16)
[2021-09-28] MEDS: Nystatin Cream 15 GM TUBE 1 APPL TOPICAL ×2 (09:50→21:18)
[2021-09-28 13:02] LABS: Glucose, Whole Blood 90 mg/dL (60-115)
[2021-09-28] MEDS: hydrOXYzine HCL 50 MG TABLET PO ×2 (13:18→20:08)
[2021-09-28] MEDS: chlorproMAZINE HCl 25 MG TABLET 75 MG PO (14:34)
--- NOTE | 2021-09-28 15:54 | HO.PSYCHPN ---
Subjective Subjective Date of Service: 09/28/21 Reason For Visit: SEC 12,SI,SEEN IN COMMUNITY,ACTIVE BED SEARCH Interim History: pt states she tried to strangle herself yesterday, she is feeling unsafe, she is hearing voices like crazy. she is having thoughts of cutting herself with a food cover. despite her having tried to strangle herself yesterday, per her report, she also states she was feeling better yesterday and wanted to discharge. she states a friend from the [facility] is strongly encouraging her to discharge. she is considering it... if it happens she is thinking between 1230 and 1. per staff, wanting to scratch. 1:1 DCed, now on Q5 min checks. eating, attending groups. having positive interactions with others. endorsing CAH to harm self. feeling safer in the [place]ari. up at 0500 with nightmare. brief head banging but redirectable. wrote out detailed safety plan. Mental Status Exam Mental Status Exam Narrative: adequately dressed and groomed. no PMA/PMR. cooperative with interview. speech soft, nml rate, amount, latency. decreased prosody. thoughts linear and logical. affect constricted, normo-intense, non-labile. +SI/SIBI. no HI. CAH to kill and cut herself. Diagnostics Vital Signs (24Hr): Vital Signs - 24 hr 09/27/21 21:08 09/27/21 21:09 09/27/21 21:13 Temperature 97.2 F Pulse Rate 80 80 80 Respiratory Rate Blood Pressure 122/64 122/64 122/64 Pulse Oximetry 97 09/28/21 08:50 09/28/21 09:03 09/28/21 09:04 Temperature 97.6 F Pulse Rate 104 H 104 H 104 H Respiratory Rate 16 Blood Pressure 133/75 133/75 133/75 Pulse Oximetry 96 09/28/21 14:31 Temperature Pulse Rate 92 Respiratory Rate Blood Pressure 133/89 Pulse Oximetry BMI result Body Mass Index 38.9 Labs Results: 09/19/21 17:00 09/26/21 08:18 Labs: Laboratory Results - last 48 hr 09/27/21 09/28/21 09/28/21 08:03 08:54 12:59 POC Glucose 115 124 H 90 Medications Medications Current Medications Al Hydroxide/Mg Hydroxide (Magnesium Hydrox/Alum Hydrox 30 Ml Oral.Susp) 30 ml PO Q6H PRN PRN Reason: Heartburn/Nausea Albuterol Sulfate (Albuterol Sulfate 90 Mcg 8 Gm Inhaler) 2 puff INHALE Q4H PRN PRN Reason: Shortness Of Breath Last Admin: 09/26/21 20:08 Dose: 2 puff Documented by: Atorvastatin Calcium (Atorvastatin Calcium 10 Mg Tablet) 10 mg PO BEDTIME [facility] Last Admin: 09/27/21 21:08 Dose: 10 mg Documented by: Benztropine Mesylate (Benztropine Mesylate 0.5 Mg Tablet) 0.5 mg PO BID PRN PRN Reason: EPS Last Admin: 09/26/21 23:52 Dose: 0.5 mg Documented by: Chlorpromazine HCl (Chlorpromazine Hcl 25 Mg Tablet) 50 mg PO QID [facility] Last Admin: 09/28/21 13:17 Dose: 50 mg Documented by: Chlorpromazine HCl (Chlorpromazine Hcl 25 Mg Tablet) 75 mg PO Q4H PRN PRN Reason: agitation Last Admin: 09/28/21 14:34 Dose: 75 mg Documented by: Clonidine HCl (Clonidine Hcl 0.1 Mg Tablet) 0.1 mg PO BID@0830,1430 [facility]; Protocol Last Admin: 09/28/21 14:31 Dose: 0.1 mg Documented by: Ferrous Sulfate (Ferrous Sulfate 324 Mg Tablet.Dr) 324 mg PO DAILY [facility] Last Admin: 09/28/21 09:03 Dose: 324 mg Documented by: Fluoxetine HCl (Fluoxetine Hcl 20 Mg Capsule) 40 mg PO DAILY [facility] Last Admin: 09/28/21 09:04 Dose: 40 mg Documented by: Fluticasone Propionate (Fluticasone Propionate 100 Mcg Blst.W.Dev) 2 puff INHALE RBID [facility] Last Admin: 09/28/21 09:08 Dose: 2 puff Documented by: Hydroxyzine HCl (Hydroxyzine Hcl 50 Mg Tablet) 50 mg PO QID PRN PRN Reason: Anxiety Last Admin: 09/28/21 13:18 Dose: 50 mg Documented by: Hydroxyzine HCl (Hydroxyzine Hcl 25 Mg Tablet) 25 mg PO BEDTIME PRN PRN Reason: Anxiety Ibuprofen (Ibuprofen 600 Mg Tablet) 600 mg PO Q6H PRN PRN Reason: Pain (Scale Score 1-3) Last Admin: 09/27/21 17:52 Dose: 600 mg Documented by: Lisinopril (Lisinopril 5 Mg Tablet) 5 mg PO DAILY [facility]; Protocol Last Admin: 09/28/21 09:04 Dose: 5 mg Documented by: Magnesium Hydroxide (Milk Of Magnesia 30 Ml Oral.Susp) 30 ml PO DAILY PRN PRN Reason: Constipation Last Admin: 09/23/21 13:18 Dose: 30 ml Documented by: Metformin HCl (Metformin Hcl 500 Mg Tablet) 500 mg PO BID [facility] Last Admin: 09/28/21 09:04 Dose: 500 mg Documented by: Montelukast Sodium (Montelukast Sodium 10 Mg Tablet) 10 mg PO BEDTIME [facility] Last Admin: 09/27/21 21:09 Dose: 10 mg Documented by: Nicotine (Nicotine 21 Mg Patch.Td24) 21 mg TRANSDERMA DAILY [facility] Last Admin: 09/28/21 09:02 Dose: 21 mg Documented by: Nystatin (Nystatin Cream 15 Gm Tube) 1 appl TOPICAL BID [facility]; Protocol Last Admin: 09/28/21 09:50 Dose: 1 appl Documented by: Omeprazole (Omeprazole 20 Mg Capsule.Dr) 20 mg PO BID@0630,1630 [facility] Last Admin: 09/28/21 06:24 Dose: 20 mg Documented by: Polyethylene Glycol (Polyethylene Glycol 3350 17 Gm Powd.Pack) 17 gm PO DAILY PRN PRN Reason: Constipation Last Admin: 09/23/21 08:20 Dose: 17 gm Documented by: Prazosin HCl (Prazosin Hcl 1 Mg Capsule) 3 mg PO BEDTIME [facility]; Protocol Last Admin: 09/27/21 21:08 Dose: 3 mg Documented by: Trazodone HCl (Trazodone Hcl 50 Mg Tablet) 150 mg PO BEDTIME [facility] Last Admin: 09/27/21 21:08 Dose: 150 mg Documented by: Trazodone HCl (Trazodone Hcl 50 Mg Tablet) 50 mg PO BEDTIME PRN PRN Reason: Insomnia Last Admin: 09/26/21 23:52 Dose: 50 mg Documented by: Verapamil HCl (Verapamil Hcl Sr 240 Mg Tablet.Er) 240 mg PO BEDTIME [facility]; Protocol Last Admin: 09/27/21 21:09 Dose: 240 mg Documented by: Allergies Allergies Allergy/AdvReac Type Severity Reaction Status Date / Time Fish Containing Products Allergy Severe ANAPHYLAXIS Verified 08/18/21 18:18 codeine [Codeine] Allergy Unknown RASH Verified 08/18/21 18:18 Penicillins Allergy Unknown RASH Verified 08/18/21 18:18 prednisone [Prednisone] Allergy Unknown RASH Verified 08/18/21 18:18 Sulfa (Sulfonamide Allergy Unknown RASH Verified 08/18/21 18:18 Antibiotics) [Sulfa (Sulfonamides)] azithromycin [AZITHROMYCIN] AdvReac Severe RASH Verified 08/18/21 18:18 nicotine AdvReac Unknown HEART Verified 08/18/21 18:18 PALPITATION TO NICOTINE GUM Seafood Allergy Severe ANAPHYLAXIS Uncoded 07/31/21 20:43 From Geodon Allergy Unknown DYSURIA, Uncoded 07/31/21 20:43 RASH Assessment & Plan Assessment & Plan (1) Suicidal ideation: Status: Acute Code(s): R45.851 - Suicidal ideations (2) PTSD (post-traumatic stress disorder): Status: Chronic Code(s): F43.10 - Post-traumatic stress disorder, unspecified (3) Borderline personality disorder: Status: Chronic Code(s): F60.3 - Borderline personality disorder (4) Depression: Status: Acute Code(s): F32.A - Depression, unspecified Assessment and Plan: continue home medications aside from the following changes: 1) decreased prozac from 60 mg daily to 40 mg daily 09/21 due to potential for activation and increase in SI. 2) increased klonopin PRNs from 0.25 mg QID to 0.5 mg QID 09/20 for acute anxiety. 3) increased thorazine PRNs from 50 mg each to 75 mg each 09/20 for CAH and anxiety. placed on CO for safety, 1:1 as of 09/21. milieu therapy. investigate [facility] referral for long-term stabilization as pt has been in and out of the ED and inpatient units constantly the past year. I spent minutes with the patient and/or on the patient floor today, greater than?50% of which was spent counseling/coordinating care. Reason for contiued inpatient stay Substantial Risk for: harm to self, inability to function and rapid decompensation
[2021-09-28] MEDS: traZODone HCL 50 MG TABLET 150 MG PO (21:16)
[2021-09-28] MEDS: Montelukast Sodium 10 MG TABLET PO (21:16)
[2021-09-28] MEDS: Prazosin HCL 1 MG CAPSULE 3 MG PO (21:16)
[2021-09-28] MEDS: Atorvastatin Calcium 10 MG TABLET PO (21:16)
[2021-09-28] MEDS: VerapamiL HCL SR 240 MG TABLET.ER PO (21:17)
[2021-09-28] MEDS: hydrOXYzine HCL 25 MG TABLET PO (22:58)
[2021-09-29] MEDS: Omeprazole 20 MG CAPSULE.DR PO (06:19)
[2021-09-29 08:11] VITALS: BP 115/57; PULSE 78; TEMP 36.6; O2SAT 96
[2021-09-29 08:26] VITALS: BP 115/57; PULSE 78
[2021-09-29] MEDS: chlorproMAZINE HCl 25 MG TABLET 50 MG PO (08:26)
[2021-09-29] MEDS: cloNIDine HCL 0.1 MG TABLET PO (08:26)
[2021-09-29 08:27] VITALS: BP 115/57; PULSE 78
[2021-09-29] MEDS: metFORMIN HCl 500 MG TABLET PO (08:27)
[2021-09-29] MEDS: FLUoxetine HCl 20 MG CAPSULE 40 MG PO (08:27)
[2021-09-29] MEDS: Ferrous Sulfate 324 MG TABLET.DR PO (08:27)
[2021-09-29] MEDS: lisinopriL 5 MG TABLET PO (08:27)
[2021-09-29] MEDS: Nicotine 21 MG PATCH.TD24 TRANSDERMA (08:28)
[2021-09-29 09:19] LABS: Glucose, Whole Blood 112 mg/dL (60-115)
[2021-09-29] MEDS: Nystatin Cream 15 GM TUBE 1 APPL TOPICAL (09:53)
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
[2021-09-29] MEDS: hydrOXYzine HCL 50 MG TABLET PO (11:13)
--- NOTE | 2021-09-29 13:43 | PC.NURSE ---
Patient is pleasant and cooperative upon approach. Patient is in agreement with discharge and discharge teaching. Patient denies anxiety and depression. Patient denies SI/HI/AH/VH. Patient states I feel so much better than I did before . Patient reports feeling ready to go home, reporting I am a little anxious but I am looking forward to it . Patient denies complaints at this time.
== END 2021-09-29 12:09 | disposition home or self-care (01) | DRG 883 ==
LOC: HO.ED 18:44 → HO.PADLT16 09-20 13:48
PROVIDERS: Admitting Provider Psychiatry & Neurology Psychiatry; Emergency Provider Emergency Medicine; PCP Nurse Practitioner Family; Visit Provider Psychiatry & Neurology Psychiatry
DX: F60.3 Borderline personality disorder (principal); R45.851 Suicidal ideations; F17.210 Nicotine dependence, cigarettes, uncomplicated; F43.10 Post-traumatic stress disorder, unspecified; F32.A Depression, unspecified; Z20.822 Contact with and (suspected) exposure to COVID-19; Z71.6 Tobacco abuse counseling; Z88.0 Allergy status to penicillin; Z88.2 Allergy status to sulfonamides; Z79.1 Long term (current) use of non-steroidal anti-inflammatories (NSAID); Z79.3 Long term (current) use of hormonal contraceptives; Z79.84 Long term (current) use of oral hypoglycemic drugs; Z79.899 Other long term (current) drug therapy
CPT/HCPCS: 36415; 80048; 80053; 80143; 80179; 80307; 81001; 82077; 82947; 85025; 87635; 93005; 99284; 99285

== ENCOUNTER 2021-10-01 17:12 | Emergency (ER) | payer MEDICARE, MEDICAID, SELFPAY ==
[2021-10-01 17:27] VITALS: BP 140/80; BP 149/92; PULSE 107; PULSE 110; RESP 18; TEMP 36.1; O2SAT 97; O2SAT 98; BMI 33.7
--- NOTE | 2021-10-01 17:54 | ED.PSYCH ---
HPI - Psych General Chief Complaint: Psychiatric Symptoms Stated Complaint: SEC 12. SI Time Seen by Provider: 10/01/21 17:15 Source: patient and EMS Mode of arrival: EMS Limitations: no limitations History of Present Illness HPI Narrative: Patient comes to the emergency room reporting auditory hallucinations, voices telling her to cut herself. Patient states that she broke a coffee mug, used the broken pieces to cut herself in the upper extremities bilaterally, lower extremities, breasts and abdomen. Patient also reports thoughts of killing herself by overdosing on her medications. Of note, patient was discharged from [facility] on 09/29/2021, 2 days ago. Patient states that she is compliant with her medications and has not skipped any doses. Related Data Home Medications Medication Instructions Recorded Confirmed trazodone 150 mg tablet 150 mg PO BEDTIME 01/27/21 09/19/21 polyethylene glycol 3350 17 gram 17 g PO DAILY PRN 02/12/21 09/19/21 oral powder packet (Miralax) atorvastatin 10 mg tablet 1 tab PO DAILY 05/29/21 09/19/21 ferrous sulfate 325 mg (65 mg 1 tab PO DAILY 05/29/21 09/19/21 iron) tablet,delayed release fluticasone propionate 110 2 puff INHALATION BID 05/29/21 09/19/21 mcg/actuation HFA aerosol inhaler (Flovent HFA) lisinopril 5 mg tablet 1 tab PO DAILY 05/29/21 09/19/21 metformin 500 mg tablet 1 tab PO BID 05/29/21 09/19/21 montelukast 10 mg tablet 1 tab PO BEDTIME 05/29/21 09/19/21 norethindrone (contraceptive) 0.35 0.35 mg PO DAILY 05/29/21 09/19/21 mg tablet (Deblitane) pantoprazole 40 mg tablet,delayed 1 tab PO BID@0630,1630 05/29/21 09/19/21 release verapamil 240 mg tablet,extended 1 tab PO BEDTIME 05/29/21 09/19/21 release albuterol sulfate 90 mcg/actuation 2 puff INHALATION Q4H PRN 06/15/21 09/19/21 aerosol inhaler (Ventolin HFA) clonidine HCl 0.1 mg tablet 0.1 mg PO BID@0830,1430 08/26/21 09/19/21 ibuprofen 600 mg tablet 600 mg PO Q6H PRN 09/19/21 09/19/21 Previous Rx's Medication Instructions Recorded benztropine 0.5 mg tablet 0.5 mg PO BID PRN 30 Days #60 tab 07/27/21 hydroxyzine HCl 50 mg tablet 50 mg PO QID PRN 30 Days #120 tab 07/27/21 chlorpromazine 25 mg tablet 50 mg PO QID 30 Days #240 tab 08/15/21 nicotine 21 mg/24 hr daily 21 mg TRANSDERMAL DAILY PRN 28 09/06/21 transdermal patch Days #28 ea prazosin 1 mg capsule 3 mg PO BEDTIME 30 Days #90 cap 09/06/21 chlorpromazine 25 mg tablet 75 mg PO Q4H PRN 30 Days #300 tab 09/29/21 clonazepam 0.5 mg tablet 0.5 mg PO QID PRN 30 Days #60 tab 09/29/21 fluoxetine 20 mg capsule 40 mg PO DAILY 30 Days #60 cap 09/29/21 nystatin 100,000 unit/gram topical 1 appl TOPICAL BID 15 Days #5 g 09/29/21 cream Allergies Allergy/AdvReac Type Severity Reaction Status Date / Time Fish Containing Products Allergy Severe ANAPHYLAXIS Verified 08/18/21 18:18 codeine [Codeine] Allergy Unknown RASH Verified 08/18/21 18:18 Penicillins Allergy Unknown RASH Verified 08/18/21 18:18 prednisone [Prednisone] Allergy Unknown RASH Verified 08/18/21 18:18 Sulfa (Sulfonamide Allergy Unknown RASH Verified 08/18/21 18:18 Antibiotics) [Sulfa (Sulfonamides)] azithromycin [AZITHROMYCIN] AdvReac Severe RASH Verified 08/18/21 18:18 nicotine AdvReac Unknown HEART Verified 08/18/21 18:18 PALPITATION TO NICOTINE GUM Seafood Allergy Severe ANAPHYLAXIS Uncoded 07/31/21 20:43 From Geodon Allergy Unknown DYSURIA, Uncoded 07/31/21 20:43 RASH Review of Systems Review of Systems: Constitutional : No Weight loss, No Fever, No Chills, No Night Sweats, No Fatigue, No Malaise ENT/Mouth : No Hearing loss, No Ear Pain, No Nasal Congestion, No Sinus Pain, No Hoarseness, No sore throat, No Rhinorrhea, No Swallowing Difficulty Eyes: No Eye Pain, No Swelling, No Redness, No Foreign Body, No Discharge, No Vision Changes Cardiovascular : No Chest Pain, No SOB, No Dyspnea on Exertion, No Orthopnea, No Edema, No Palpitations Respiratory : No Cough, No Sputum, No Wheezing, No Smoke Exposure, No Dyspnea Gastrointestinal : No Nausea, No Vomiting, No Diarrhea, No Constipation, No abdominal Pain, No Hematochezia, No Melena Genitourinary : no irregular bleeding, No Dysuria, No Urinary Frequency, No Hematuria, No Urinary Incontinence, No Urgency, No Flank Pain, No Urinary Flow Changes, No Hesitancy Musculoskeletal : No joint pain, No Myalgias, No Joint Swelling Skin : Complaining of superficial skin cuts in all extremities, abdomen chest Neuro : No Weakness, No Numbness, No Paresthesias, No Loss of Consciousness, No Dizziness, No Headache Psych : Complaining of suicidal ideation, auditory hallucinations, no HI Heme/Lymph: No Bruising, No Bleeding,No Lymphadenopathy Endocrine : No Polyuria, No Polydipsia, No Temperature Intolerance [facility] Past Medical History Medical History Bronchitis Diabetes type 2, controlled GERD (gastroesophageal reflux disease) Hyperlipidemia MDD (major depressive disorder), recurrent episode, severe Mood disorder Overdose PTSD (post-traumatic stress disorder) Social History Social History 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: Other 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 Other:: Patient lives in halfway. 4 in total live in halfway. Housing: Other Housing Other:: Lives in halfway Do you presently have visiting nurse or other home services: No (halfway staffed 07/05) Unable to assess alcohol history related to: Unknown Alcohol intake: never Patient Tobacco Use Status: Current everyday Tobacco user Tobacco use type: Cigarette Cigarette Packs Per Day: 1 Cigarettes Per Day: 1 Years Smoked: 20 e-Cigarette/Vaping Use: Never Used Second Hand Smoke Exposure: Yes Substance Use Type: Caffiene Advance Directives: No Advance Directives Information Provided: Yes Patient : No service: No Sexual orientation: Don't Know Physical Exam Vital Signs: Vital Signs: Last Vital Signs Temp 97 F 10/01/21 17:27 Pulse 107 H 10/01/21 17:27 Resp 18 10/01/21 17:27 BP 149/92 H 10/01/21 17:27 Pulse Ox 97 10/01/21 17:27 BMI result Body Mass Index 33.7 Const: Other: Appearance: Alert. Oriented X3. No acute distress. Eyes: Pupils equal, round and reactive to light. ENT: Pharynx normal. Neck: Normal inspection. Neck supple. No lymph nodes noted. No crepitus CVS: Normal heart rate and rhythm. Pulses normal. Normal S1 and S2 Respiratory: No respiratory distress. Breath sounds normal. No Wheezing. No rales Abdomen: Soft and nontender. No rigidity. No distention. Skin: Skin warm and dry. Multiple superficial scratches and upper and lower extremities bilaterally, both breasts, abdomen, bleeding controlled. No signs of infection. Extremities: No lower extremity edema. No lower extremity edema. No Lacerations. No Rash Neuro: Oriented X 3. No motor deficit. No sensory deficit. Moving all extermities. No slurred speech. Cranial nerves 2-12 grossly intact Psych: Calm, cooperative, normal speech Course Course Course Narrative: Behavioral health network consult pending. Physician observation started 18:06 Discharge Plan Discharge Clinical Impression: Borderline personality disorder, Suicidal ideation, Auditory hallucinations Patient Disposition: Still a Patient Prescriptions: No Action trazodone 150 mg tablet 150 mg PO BEDTIME RF: 0 polyethylene glycol 3350 [Miralax] 17 gram Powder In Packet 17 g PO DAILY PRN (Reason: Constipation) RF: 0 metformin 500 mg tablet 1 tab PO BID RF: 0 atorvastatin 10 mg tablet 1 tab PO DAILY RF: 0 pantoprazole 40 mg tablet,delayed release (DR/EC) 1 tab PO BID@0630,1630 RF: 0 verapamil 240 mg tablet extended release 1 tab PO BEDTIME RF: 0 montelukast 10 mg tablet 1 tab PO BEDTIME RF: 0 lisinopril 5 mg tablet 1 tab PO DAILY RF: 0 ferrous sulfate 325 mg (65 mg iron) tablet,delayed release (DR/EC) 1 tab PO DAILY RF: 0 Flovent HFA 110 mcg/actuation HFA aerosol inhaler 2 puff inhalation BID RF: 0 norethindrone (contraceptive) [Deblitane] 0.35 mg Tablet 0.35 mg PO DAILY RF: 0 albuterol sulfate [Ventolin HFA] 90 mcg/actuation HFA aerosol inhaler 2 puff inhalation Q4H PRN (Reason: Shortness Of Breath) RF: 0 prazosin 1 mg Capsule 3 mg PO BEDTIME 30 Days Qty: 90 RF: 0 nicotine 21 mg/24 hr Patch 24 Hour 21 mg transdermal DAILY PRN (Reason: smoking cessation) 28 Days Qty: 28 RF: 0 benztropine 0.5 mg Tablet 0.5 mg PO BID PRN (Reason: EPS) 30 Days Qty: 60 RF: 0 hydroxyzine HCl 50 mg Tablet 50 mg PO QID PRN (Reason: Anxiety) 30 Days Qty: 120 RF: 0 chlorpromazine 25 mg Tablet 50 mg PO QID 30 Days Qty: 240 RF: 0 clonidine HCl 0.1 mg tablet 0.1 mg PO BID@0830,1430 RF: 0 ibuprofen 600 mg Tablet 600 mg PO Q6H PRN (Reason: Mild Pain (Scale Score 1-4)) RF: 0 chlorpromazine 25 mg Tablet 75 mg PO Q4H PRN (Reason: agitation) 30 Days Qty: 300 RF: 0 nystatin 100,000 unit/gram Cream 1 appl topical BID 15 Days Qty: 5 RF: 0 fluoxetine 20 mg Capsule 40 mg PO DAILY 30 Days Qty: 60 RF: 0 clonazepam 0.5 mg Tablet 0.5 mg PO QID PRN (Reason: anxiety/AH) 30 Days Qty: 60 RF: 0
[2021-10-01 18:31] LABS: UPreg QC Valid YES; Urine Pregnancy NEGATIVE (NEGATIVE)
[2021-10-01 18:37] LABS: Amphetamine Screen Urine Not Detected (Not Detect); Barbiturates, Urine Not Detected (Not Detect); Benzodiazepines Screen Urine Not Detected (Not Detect); Cannabinoid Screen Urine Not Detected (Not Detect); Cocaine Screen Urine Not Detected (Not Detect); Fentanyl, urine Not Detected (Not Detect); Opiate Screen Urine Not Detected (Not Detect); Phencyclidine Screen Urine Not Detected (Not Detect)
--- NOTE | 2021-10-01 18:42 | PC.NURSE ---
patients referred to [facility]
[2021-10-01 18:46] LABS: COVID-19 Test Negative (Negative)
--- NOTE | 2021-10-01 19:56 | MHC.CARE ---
CARE team contacted [facility] re: pt who arrived on by [facility] SNYDER for suicidal ideation. This keno writer / runner spoke with crisis heavy equipment plumbing supervisor, Jessica, who shared that the pt had been seen in the [facility] ED on 09/29 with disposition for inpt psychiatric level of care. On Sunday 09/30, pt was requesting to discharge home and was re-evaluated by [facility] and discharged. Earlier this afternoon (10/01) pt engaged in self harm via cutting self on her arms, legs, and abdomen with pieces of a broken coffee mug and endorsed plan to overdose with over the counter medications. She called 911, and [facility] SNYDER contacted [facility] for a mobile crisis assessment. After being evaluated by [facility], the clinician and her treatment team at the [facility] decided that she should remain at the [facility] and not be transported to the hospital for inpt psych placement. Within 5 minutes of N leaving the [facility], the pt called 911 again and asked to be brought to the hospital. On arrival to the ED, she expressed that she doesn't want to be seen by [facility] again. Pt has been referred to [facility] for evaluation. This will be for an MSU/re-assessment and part of the assessment that was completed this afternoon at her [facility] [facility]. CARE team will check in with pt later this evening and follow up with [facility] re: ETA for a clinician and to report on pt's presentation at that time. pod nurse updated re: current plan of care.
[2021-10-02 06:09] VITALS: BP 140/79; PULSE 85; RESP 20; TEMP 36.2; O2SAT 95
--- NOTE | 2021-10-02 06:14 | PC.NURSE ---
Patient slept through the night, no distress observed/reported, behavior appropriate, med recs completed/pending providers approval, disposition is re-eval in the morning by N, will continue to monitor.
--- NOTE | 2021-10-02 06:58 | PC.NURSE ---
patient appears to remain asleep[ respirations are even adn unlabored, patient appears in no distress
== END 2021-10-02 09:22 | disposition home or self-care (01) ==
PROVIDERS: Emergency Provider Emergency Medicine
DX: R44.0 Auditory hallucinations (principal); F60.3 Borderline personality disorder; R45.851 Suicidal ideations; E11.9 Type 2 diabetes mellitus without complications; Z79.899 Other long term (current) drug therapy; Z20.822 Contact with and (suspected) exposure to COVID-19
CPT/HCPCS: 36415; 80307; 81025; 87635; 99283; 99284

== ENCOUNTER 2021-10-04 18:44 | Inpatient (IN) | payer MEDICARE, MEDICAID, SELFPAY ==
[2021-10-04 18:49] VITALS: BP 143/85; PULSE 107; RESP 18; TEMP 36.7; O2SAT 96; BMI 38.4
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
[2021-10-04 19:25] LABS: COVID-19 Test Negative (Negative)
[2021-10-04 19:29] LABS: Amphetamine Screen Urine Not Detected (Not Detect); Barbiturates, Urine Not Detected (Not Detect); Benzodiazepines Screen Urine Not Detected (Not Detect); Cannabinoid Screen Urine Not Detected (Not Detect); Cocaine Screen Urine Not Detected (Not Detect); Fentanyl, urine Not Detected (Not Detect); Opiate Screen Urine Not Detected (Not Detect); Phencyclidine Screen Urine Not Detected (Not Detect)
[2021-10-04 20:43] VITALS: BP 112/74; PULSE 98
[2021-10-04] MEDS: chlorproMAZINE HCl 25 MG TABLET 50 MG PO (20:43)
[2021-10-04] MEDS: metFORMIN HCl 500 MG TABLET PO (20:43)
[2021-10-04] MEDS: VerapamiL HCL SR 240 MG TABLET.ER PO (20:43)
[2021-10-04] MEDS: traZODone HCL 50 MG TABLET 150 MG PO (20:43)
[2021-10-04] MEDS: clonazePAM 0.5 MG TABLET PO (20:43)
[2021-10-04] MEDS: Montelukast Sodium 10 MG TABLET PO (20:43)
[2021-10-04] MEDS: Prazosin HCL 1 MG CAPSULE 3 MG PO (20:43)
[2021-10-05] VITALS (8 sets, daily range): BP systolic 112–120; BP diastolic 71–88; PULSE 86–105; RESP 14–16; TEMP 36.5–37; O2SAT 95–96
--- NOTE | 2021-10-05 | ECG_ITS ---
Test Reason : medical clearance Blood Pressure : / mmHG Vent. Rate : 081 BPM Atrial Rate : 081 BPM P-R Int : 180 ms QRS Dur : 086 ms QT Int : 390 ms P-R-T Axes : 040 063 060 degrees QTc Int : 453 ms Normal sinus rhythm Normal ECG When compared with ECG of 20-SEP-2021 10:52, No significant change was found Referred By: Rosario Murry Electronically Signed By:MAURI COLE
--- NOTE | 2021-10-05 05:17 | PC.NURSE ---
Patient slept through the night, no distress observed reported, patient reported to A that she is having cutting ideation, patient was educated and contracted for the safety, patient was assessed by [facility] in the community section 12 inpatient bed search, med rec completed/approved by the provider, patient compliant with her medication, VSS, will continue to monitor.
[2021-10-05] MEDS: Omeprazole 20 MG CAPSULE.DR PO ×2 (06:29→16:41)
--- NOTE | 2021-10-05 07:08 | PC.NURSE ---
patient awake at beginning of shift, wandering on unit greeting staff as they arrive. patient appears in no distress at present.
[2021-10-05] MEDS: Ferrous Sulfate 324 MG TABLET.DR PO (07:57)
[2021-10-05] MEDS: chlorproMAZINE HCl 25 MG TABLET 50 MG PO ×4 (07:57→22:08)
[2021-10-05] MEDS: metFORMIN HCl 500 MG TABLET PO ×2 (07:57→22:15)
[2021-10-05] MEDS: cloNIDine HCL 0.1 MG TABLET PO ×2 (07:57→13:17)
[2021-10-05] MEDS: FLUoxetine HCl 20 MG CAPSULE 40 MG PO (07:58)
[2021-10-05] MEDS: lisinopriL 5 MG TABLET PO (07:59)
[2021-10-05] MEDS: Fluticasone Propionate 100 MCG BLST.W.DEV 2 PUFF INHALE ×2 (08:04→22:08)
[2021-10-05 09:31] LABS: Estimated Glomerular Filt Rate > 60
[2021-10-05] MEDS: chlorproMAZINE HCl 25 MG TABLET 75 MG PO (13:15)
[2021-10-05 14:55] LABS: Alanine Aminotransferase 15 U/L (0-31); Albumin Level 3.9 g/dL (3.5-5.0); Alkaline Phosphatase 109 U/L (39-117); Anion Gap 12 (12-20); Aspartate Amino Transferase 16 U/L (5-31); Bilirubin Total 0.3 mg/dL (0.0-1.0); Blood Urea Nitrogen 10 mg/dL (9-16); Carbon Dioxide 25 mmol/L (22-29); Chloride 104 mmol/L (96-108); Glucose Random 125 mg/dL (60-115); Potassium 3.9 mmol/L (3.3-5.1); Sodium 137 mmol/L (135-145); Total Protein 6.3 g/dL (6.5-8.0)
[2021-10-05] MEDS: Nystatin Cream 15 GM TUBE 1 APPL TOPICAL (21:47)
[2021-10-05] MEDS: Prazosin HCL 1 MG CAPSULE 3 MG PO (22:10)
[2021-10-05] MEDS: VerapamiL HCL SR 240 MG TABLET.ER PO (22:13)
[2021-10-05] MEDS: Montelukast Sodium 10 MG TABLET PO (22:13)
[2021-10-05] MEDS: traZODone HCL 50 MG TABLET 150 MG PO (22:14)
[2021-10-05] MEDS: Atorvastatin Calcium 10 MG TABLET PO (22:14)
[2021-10-05] MEDS: clonazePAM 0.5 MG TABLET PO (22:14)
[2021-10-06] VITALS (8 sets, daily range): BP systolic 109–136; BP diastolic 60–82; PULSE 77–100; RESP 16–20; TEMP 36.4–36.8; O2SAT 96–98; BMI 39.9
--- NOTE | 2021-10-06 01:17 | PC.ADMIT ---
Lucita is a 45-year old single female admitted to the unit on 10/05/212040 from hospital ED. She has a history of multiple psychiatric admissions including most recent here in the hospital this month. She was brought to the unit on wheelchair wearing hospital attire, alert and oriented. Her legal status is commitment voluntary (CV). Per referral she was brought to the ED after calling 911 reporting struggling with urges to harm self, had superficial abraded her wrist from using broken mug to scratch self. She was co-operative during this encounter. She reported anxiety, commanding auditory hallucination, and not feeling safe. She stated I hear voices telling me to scratch my self and I don't feel safe now . She started rocking back forth and then tried to remove the pin on patient handbook to scratch herself. The book and other materials were removed from here. Provider notified. Patient was placed on on 5 minutes check and then 1:1 observation. Patient did not engage in any self injurious behavior at time of this report. Patient accepted all medications. She is presently calm and appeared to be sleeping.
[2021-10-06] MEDS: Omeprazole 20 MG CAPSULE.DR PO ×2 (07:13→16:28)
[2021-10-06 08:14] LABS: MANUAL DIFF FLAG NO
[2021-10-06 08:18] LABS: Basophils Percent Auto 0.3 % (0-2); Eosinophils Absolute Auto 0.2 X10*3/uL (0.0-0.4); Eosinophils Percent Auto 3.3 % (0-4); Hematocrit 36.9 % (37.0-47.0); Hemoglobin 12.2 g/dl (12.0-16.0); Imm Gran Abs Auto 0.02 X10*3/uL (0.00-0.03); Imm Gran Pct Auto 0.3 % (0.0-0.4); Lymphocytes Absolute Auto 1.4 X10*3/uL (1.2-4.9); Lymphocytes Percent Auto 19.6 % (20-40); Mean Corpuscular HGB Conc 33.1 g/dl (31.0-35.0); Mean Corpuscular Hemoglobin 30.3 pg (27.0-33.0); Mean Corpuscular Volume 91.6 fL (80.0-98.0); Mean Platelet Volume 9.7 fL (9.4-12.3); Monocytes Absolute Auto 0.6 X10*3/uL (0.1-1.2); Monocytes Percent Auto 7.9 % (2-11); Neutrophils Absolute Auto 5.1 x10*3/uL (2.0-8.3); Neutrophils Percent Auto 68.6 % (45-73); Platelet Count 262 X10*3/uL (160-400); Red Blood Count 4.03 X10*6/uL (4.20-5.50); Red Cell Distribution Width 12.2 % (11.0-16.0); White Blood Count 7.4 X10*3/uL (4.8-10.8)
[2021-10-06] MEDS: Fluticasone Propionate 100 MCG BLST.W.DEV 2 PUFF INHALE ×2 (08:27→21:30)
[2021-10-06] MEDS: Nystatin Cream 15 GM TUBE 1 APPL TOPICAL ×2 (08:27→22:23)
[2021-10-06 08:28] LABS: Glucose, Whole Blood 121 mg/dL (60-115)
[2021-10-06] MEDS: cloNIDine HCL 0.1 MG TABLET PO ×2 (08:28→14:30)
[2021-10-06] MEDS: chlorproMAZINE HCl 25 MG TABLET 50 MG PO ×4 (08:28→21:24)
[2021-10-06] MEDS: FLUoxetine HCl 20 MG CAPSULE 40 MG PO (08:28)
[2021-10-06 08:29] LABS: Estimated Average Glucose 108 mg/dL; Hemoglobin A1c % 5.4 %
[2021-10-06] MEDS: Ferrous Sulfate 324 MG TABLET.DR PO (08:29)
[2021-10-06] MEDS: lisinopriL 5 MG TABLET PO (08:29)
[2021-10-06] MEDS: metFORMIN HCl 500 MG TABLET PO ×2 (08:29→21:25)
[2021-10-06 08:33] LABS: Cholesterol 176 mg/dL; HDL Cholesterol 42 mg/dL; LDL Cholesterol Calculated 99 mg/dl; Magnesium 1.7 mg/dL (1.6-2.6); Triglycerides 179 mg/dL
[2021-10-06] MEDS: Nicotine 21 MG PATCH.TD24 TRANSDERMA (08:34)
[2021-10-06 08:53] LABS: Free T4 (Free Thyroxine) 1.11 ng/dL (0.71-1.85); Thyroid Stimulating Hormone 2.15 uIU/mL (0.32-4.0)
[2021-10-06 09:07] LABS: Vitamin B12 495 pg/mL (200-900)
[2021-10-06] MEDS: chlorproMAZINE HCl 25 MG TABLET 75 MG PO (11:01)
[2021-10-06] MEDS: hydrOXYzine HCL 50 MG TABLET PO ×2 (11:02→16:29)
[2021-10-06] MEDS: clonazePAM 0.5 MG TABLET PO (11:02)
[2021-10-06] MEDS: Bacitracin Oint 14 GM TUBE 1 APPL TOPICAL ×2 (14:32→22:23)
--- NOTE | 2021-10-06 15:02 | MHC.CLN ---
NUTRITION DIET CHANGED TO FINGER FOODS DUE TO POTENTIAL FOR SELF HARM WITH PLASTIC UTENSILS.
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
[2021-10-06] MEDS: Albuterol Sulfate 90 MCG 8 GM INHALER 2 PUFF INHALE (18:24)
[2021-10-06] MEDS: Prazosin HCL 1 MG CAPSULE 3 MG PO (21:23)
[2021-10-06] MEDS: Montelukast Sodium 10 MG TABLET PO (21:24)
[2021-10-06] MEDS: VerapamiL HCL SR 240 MG TABLET.ER PO (21:24)
[2021-10-06] MEDS: Atorvastatin Calcium 10 MG TABLET PO (21:24)
[2021-10-06] MEDS: traZODone HCL 50 MG TABLET 150 MG PO (21:25)
[2021-10-07] MEDS: Omeprazole 20 MG CAPSULE.DR PO ×2 (04:36→16:59)
[2021-10-07] MEDS: chlorproMAZINE HCl 25 MG TABLET 75 MG PO ×2 (04:36→23:22)
--- NOTE | 2021-10-07 08:03 | HO.PSYCHPN ---
Subjective Subjective Date of Service: 10/07/21 Reason For Visit: Depression, SI Subjective Notes: Conditional Voluntary Interim History: Patient was seen in rounds today. Records reviewed and discussed in rounds. She is being treated for PTSD, personality disorder, anxiety and depression. Current medications were reviewed. She continues to have some suicidal ideations. She continues to have auditory hallucinations which are command in nature, instructing her for self-harm. She states that the voices have decreased. She does have some flashbacks. She has been tearful at times. Current PRNs reviewed and they have been helpful specially the Thorazine. No complaints or side effects. Eating and sleeping adequately. No changes were made today Medication Compliance: Yes Side effects from medications: No Attending Groups: Yes Review of Systems Acute medical concerns: No Review of Systems Review of Systems Constitutional: No Fever, No Chills ENT/Mouth: No Ear Pain, No Nasal Congestion, No sore throat Eyes: No Eye Pain, No Swelling, No Redness Cardiovascular: No Chest Pain, No SOB Respiratory: No Cough, No Sputum, No Dyspnea Gastrointestinal: No Nausea, No Vomiting, No Diarrhea, No Hematochezia, No Melena Genitourinary: No Dysuria, No Urinary Frequency, No Hematuria Musculoskeletal: No Myalgias Skin: No Skin Lesions, No rash Neuro: No Weakness, No Numbness, No Paresthesias, No Dizziness, No Headache Psych: positive Anxiety, positive Depression, positive SI Heme/Lymph: No Lymphadenopathy Endocrine: No Polyuria, No Polydipsia Yes all other systems are reviewed and are negative Mental Status Exam Mental Status Exam Narrative: Patient was seen in rounds today. She is pleasant and moderately interactive. Speech is soft-spoken. Little to moderate eye contact. Affect is constricted. She does have auditory hallucinations which are command in nature. Moderate anxiety present. Cognitively she has coherent thought processes. No gross deficits. Cognitively is intact. Judgment is intact. Diagnostics Vital Signs (24Hr): Vital Signs - 24 hr 10/06/21 08:28 10/06/21 08:29 10/06/21 13:30 Temperature 97.6 F Pulse Rate 77 77 88 Respiratory Rate 16 Blood Pressure 109/60 109/60 136/74 Pulse Oximetry 98 10/06/21 14:30 10/06/21 21:20 10/06/21 21:23 Temperature 98.2 F Pulse Rate 88 100 100 Respiratory Rate Blood Pressure 136/74 131/82 131/82 Pulse Oximetry 98 10/06/21 21:24 Temperature Pulse Rate 100 Respiratory Rate Blood Pressure 131/82 Pulse Oximetry BMI result Body Mass Index 39.9 Labs Results: 10/06/21 08:08 10/05/21 09:04 Labs: Laboratory Results - last 48 hr 10/05/21 10/06/21 10/06/21 09:04 08:08 08:08 WBC 7.4 RBC 4.03 L Hgb 12.2 Hct 36.9 L MCV 91.6 MCH 30.3 MCHC 33.1 RDW 12.2 Plt Count 262 MPV 9.7 Immature Gran % (Auto) 0.3 Neut % (Auto) 68.6 Lymph % (Auto) 19.6 L Branch % (Auto) 7.9 Eos % (Auto) 3.3 Baso % (Auto) 0.3 Lymph # (Auto) 1.4 Branch # (Auto) 0.6 Eos # (Auto) 0.2 Baso # (Auto) 0.0 Abs Immat Gran (auto) 0.02 Absolute Neuts (auto) 5.1 Absolute Nucleated RBC 0.000 Nucleated RBC % (auto) 0.0 Sodium 137 Potassium 3.9 Chloride 104 Carbon Dioxide 25 Anion Gap 12 BUN 10 Creatinine 0.78 Estim Creat Clear Calc 100.0 Estimated GFR > 60 POC Glucose Random Glucose 125 H Estimat Average Glucose Hemoglobin A1c % Calcium 9.0 D Magnesium Total Bilirubin 0.3 AST 16 ALT 15 Alkaline Phosphatase 109 Total Protein 6.3 L Albumin 3.9 Triglycerides Cholesterol LDL Cholesterol, Calc HDL Cholesterol Vitamin B12 495 Folate 6.0 TSH Free T4 10/06/21 10/06/21 10/06/21 08:08 08:12 08:24 WBC RBC Hgb Hct MCV MCH MCHC RDW Plt Count MPV Immature Gran % (Auto) Neut % (Auto) Lymph % (Auto) Branch % (Auto) Eos % (Auto) Baso % (Auto) Lymph # (Auto) Branch # (Auto) Eos # (Auto) Baso # (Auto) Abs Immat Gran (auto) Absolute Neuts (auto) Absolute Nucleated RBC Nucleated RBC % (auto) Sodium Potassium Chloride Carbon Dioxide Anion Gap BUN Creatinine Estim Creat Clear Calc Estimated GFR POC Glucose 121 H Random Glucose Estimat Average Glucose 108 Hemoglobin A1c % 5.4 Calcium Magnesium 1.7 Total Bilirubin AST ALT Alkaline Phosphatase Total Protein Albumin Triglycerides 179 Cholesterol 176 LDL Cholesterol, Calc 99 HDL Cholesterol 42 Vitamin B12 Folate TSH 2.15 Free T4 1.11 Medications Medications Current Medications Acetaminophen (Acetaminophen 325 Mg Tablet) 650 mg PO Q6H PRN PRN Reason: Headache/Pain Mild Scale (1-3) Al Hydroxide/Mg Hydroxide (Magnesium Hydrox/Alum Hydrox 30 Ml Oral.Susp) 30 ml PO Q6H PRN PRN Reason: Heartburn/Nausea Albuterol Sulfate (Albuterol Sulfate 90 Mcg 8 Gm Inhaler) 2 puff INHALE Q4H PRN PRN Reason: Shortness Of Breath Last Admin: 10/06/21 18:24 Dose: 2 puff Documented by: Atorvastatin Calcium (Atorvastatin Calcium 10 Mg Tablet) 10 mg PO BEDTIME [facility] Last Admin: 10/06/21 21:24 Dose: 10 mg Documented by: Bacitracin (Bacitracin Oint 14 Gm Tube) 1 appl TOPICAL BID [facility]; Protocol Last Admin: 10/06/21 22:23 Dose: 1 appl Documented by: Benztropine Mesylate (Benztropine Mesylate 0.5 Mg Tablet) 0.5 mg PO BID PRN PRN Reason: EPS Chlorpromazine HCl (Chlorpromazine Hcl 25 Mg Tablet) 50 mg PO QID [facility] Last Admin: 10/06/21 21:24 Dose: 50 mg Documented by: Chlorpromazine HCl (Chlorpromazine Hcl 25 Mg Tablet) 75 mg PO Q4H PRN PRN Reason: agitation Last Admin: 10/07/21 04:36 Dose: 75 mg Documented by: Clonazepam (Clonazepam 0.5 Mg Tablet) 0.5 mg PO QID PRN PRN Reason: anxiety/AH Last Admin: 10/06/21 11:02 Dose: 0.5 mg Documented by: Clonidine HCl (Clonidine Hcl 0.1 Mg Tablet) 0.1 mg PO BID@0830,1430 [facility]; Protocol Last Admin: 10/06/21 14:30 Dose: 0.1 mg Documented by: Ferrous Sulfate (Ferrous Sulfate 324 Mg Tablet.) 324 mg PO DAILY [facility] Last Admin: 10/06/21 08:29 Dose: 324 mg Documented by: Fluoxetine HCl (Fluoxetine Hcl 20 Mg Capsule) 40 mg PO DAILY [facility] Last Admin: 10/06/21 08:28 Dose: 40 mg Documented by: Fluticasone Propionate (Fluticasone Propionate 100 Mcg Blst.W.Dev) 2 puff INHALE RBID [facility] Last Admin: 10/06/21 21:30 Dose: 2 puff Documented by: Hydroxyzine HCl (Hydroxyzine Hcl 50 Mg Tablet) 50 mg PO QID PRN PRN Reason: Anxiety Last Admin: 10/06/21 16:29 Dose: 50 mg Documented by: Ibuprofen (Ibuprofen 600 Mg Tablet) 600 mg PO Q6H PRN PRN Reason: Mild Pain (Scale Score 1-4) Lisinopril (Lisinopril 5 Mg Tablet) 5 mg PO DAILY [facility]; Protocol Last Admin: 10/06/21 08:29 Dose: 5 mg Documented by: Magnesium Hydroxide (Milk Of Magnesia 30 Ml Oral.Susp) 30 ml PO DAILY PRN PRN Reason: Constipation Metformin HCl (Metformin Hcl 500 Mg Tablet) 500 mg PO BID [facility] Last Admin: 10/06/21 21:25 Dose: 500 mg Documented by: Montelukast Sodium (Montelukast Sodium 10 Mg Tablet) 10 mg PO BEDTIME [facility] Last Admin: 10/06/21 21:24 Dose: 10 mg Documented by: Nicotine (Nicotine 21 Mg Patch.Td24) 21 mg TRANSDERMA DAILY PRN PRN Reason: smoking cessation Last Admin: 10/06/21 08:34 Dose: 21 mg Documented by: Nystatin (Nystatin Cream 15 Gm Tube) 1 appl TOPICAL BID [facility]; Protocol Last Admin: 10/06/21 22:23 Dose: 1 appl Documented by: Omeprazole (Omeprazole 20 Mg Capsule.) 20 mg PO BID@0630,1630 [facility] Last Admin: 10/07/21 04:36 Dose: 20 mg Documented by: Polyethylene Glycol (Polyethylene Glycol 3350 17 Gm Powd.Pack) 17 gm PO DAILY PRN PRN Reason: Constipation Prazosin HCl (Prazosin Hcl 1 Mg Capsule) 3 mg PO BEDTIME [facility]; Protocol Last Admin: 10/06/21 21:23 Dose: 3 mg Documented by: Trazodone HCl (Trazodone Hcl 50 Mg Tablet) 150 mg PO BEDTIME [facility] Last Admin: 10/06/21 21:25 Dose: 150 mg Documented by: Verapamil HCl (Verapamil Hcl Sr 240 Mg Tablet.Er) 240 mg PO BEDTIME [facility]; Protocol Last Admin: 10/06/21 21:24 Dose: 240 mg Documented by: Allergies Allergies Allergy/AdvReac Type Severity Reaction Status Date / Time Fish Containing Products Allergy Severe ANAPHYLAXIS Verified 08/18/21 18:18 codeine [Codeine] Allergy Unknown RASH Verified 08/18/21 18:18 Penicillins Allergy Unknown RASH Verified 08/18/21 18:18 prednisone [Prednisone] Allergy Unknown RASH Verified 08/18/21 18:18 Sulfa (Sulfonamide Allergy Unknown RASH Verified 08/18/21 18:18 Antibiotics) [Sulfa (Sulfonamides)] azithromycin [AZITHROMYCIN] AdvReac Severe RASH Verified 08/18/21 18:18 nicotine AdvReac Unknown HEART Verified 08/18/21 18:18 PALPITATION TO NICOTINE GUM Seafood Allergy Severe ANAPHYLAXIS Uncoded 07/31/21 20:43 From Geodon Allergy Unknown DYSURIA, Uncoded 07/31/21 20:43 RASH Assessment & Plan Assessment & Plan (1) Depression: Qualifiers: Active/Remission status: currently active Depression Type: major depressive disorder Major depression episode severity: severe Major depression recurrence: recurrent Psychotic features: with psychotic features Qualified Code(s): F33.3 - Major depressive disorder, recurrent, severe with psychotic symptoms Status: Acute Code(s): F32.A - Depression, unspecified (2) Borderline personality disorder: Status: Chronic Code(s): F60.3 - Borderline personality disorder (3) PTSD (post-traumatic stress disorder): Status: Chronic Code(s): F43.10 - Post-traumatic stress disorder, unspecified (4) Suicidal ideation: Status: Resolved Code(s): R45.851 - Suicidal ideations Assessment and Plan: admit to unit, keep safe. 1:1 to prevent SIB. continue prior medications regimen. T/C vibra. I spent minutes with the patient and/or on the patient floor today, greater than?50% of which was spent counseling/coordinating care. Reason for contiued inpatient stay Substantial Risk for: harm to self and harm to others
[2021-10-07 08:15] VITALS: BP 118/60; PULSE 85; RESP 18; TEMP 36.8; O2SAT 96
[2021-10-07] MEDS: FLUoxetine HCl 20 MG CAPSULE 40 MG PO (08:18)
[2021-10-07] MEDS: Fluticasone Propionate 100 MCG BLST.W.DEV 2 PUFF INHALE ×2 (08:18→22:28)
[2021-10-07] MEDS: metFORMIN HCl 500 MG TABLET PO ×2 (08:18→22:32)
[2021-10-07] MEDS: Ferrous Sulfate 324 MG TABLET.DR PO (08:18)
[2021-10-07] MEDS: chlorproMAZINE HCl 25 MG TABLET 50 MG PO ×4 (08:18→22:30)
[2021-10-07 08:19] VITALS: BP 118/60; PULSE 85
[2021-10-07] MEDS: cloNIDine HCL 0.1 MG TABLET PO ×2 (08:19→15:16)
[2021-10-07] MEDS: lisinopriL 5 MG TABLET PO (08:19)
[2021-10-07] MEDS: Nystatin Cream 15 GM TUBE 1 APPL TOPICAL ×2 (08:25→22:29)
[2021-10-07] MEDS: Bacitracin Oint 14 GM TUBE 1 APPL TOPICAL ×2 (08:27→22:29)
[2021-10-07] MEDS: Nicotine 21 MG PATCH.TD24 TRANSDERMA (08:29)
[2021-10-07 09:55] LABS: Glucose, Whole Blood 96 mg/dL (60-115)
[2021-10-07] MEDS: clonazePAM 0.5 MG TABLET PO (11:10)
[2021-10-07] MEDS: Albuterol Sulfate 90 MCG 8 GM INHALER 2 PUFF INHALE (11:51)
[2021-10-07 15:16] VITALS: BP 129/97; PULSE 97
[2021-10-07 22:29] VITALS: BP 136/75; PULSE 91
[2021-10-07] MEDS: Prazosin HCL 1 MG CAPSULE 3 MG PO (22:29)
[2021-10-07 22:30] VITALS: BP 136/75; PULSE 91; TEMP 37; O2SAT 95
[2021-10-07] MEDS: Atorvastatin Calcium 10 MG TABLET PO (22:31)
[2021-10-07] MEDS: Montelukast Sodium 10 MG TABLET PO (22:31)
[2021-10-07] MEDS: traZODone HCL 50 MG TABLET 150 MG PO (22:31)
[2021-10-07 22:32] VITALS: BP 136/75; PULSE 91
[2021-10-07] MEDS: VerapamiL HCL SR 240 MG TABLET.ER PO (22:32)
[2021-10-08 06:00] VITALS: BP 158/96; PULSE 86; TEMP 36.2
--- NOTE | 2021-10-08 08:45 | HO.PSYCHPN ---
Subjective Subjective Date of Service: 10/08/21 Reason For Visit: Depression, SI Subjective Notes: Conditional Voluntary Interim History: Patient was seen and discussed in rounds today. She continues to be on one-to-one level of observation. She has been more social. She is med compliant. Continues to have some intrusive thoughts. No new self-destructive behaviors except for picking at old scabs. No complaints. Eating and sleeping adequately. No changes were made Medication Compliance: Yes Side effects from medications: No Review of Systems Review of Systems Fungal infection under her right breast Yes all other systems are reviewed and are negative Mental Status Exam Mental Status Exam Narrative: In today's visit she is pleasant and moderately interactive. Speech is soft-spoken. Little to moderate eye contact. Affect is constricted. She does have auditory hallucinations which are command in nature. Moderate anxiety present. Cognitively she has coherent thought processes. No gross deficits. Cognitively is intact. Judgment is intact. Diagnostics Vital Signs (24Hr): Vital Signs - 24 hr 10/07/21 15:16 10/07/21 22:29 10/07/21 22:30 Temperature 98.6 F Pulse Rate 97 91 91 Blood Pressure 129/97 H 136/75 136/75 Pulse Oximetry 95 10/07/21 22:32 Temperature Pulse Rate 91 Blood Pressure 136/75 Pulse Oximetry BMI result Body Mass Index 39.9 Labs Results: 10/06/21 08:08 10/05/21 09:04 Labs: Laboratory Results - last 48 hr 10/06/21 10/06/21 10/07/21 08:08 08:12 09:41 POC Glucose 96 Vitamin B12 495 Folate 6.0 TSH 2.15 Free T4 1.11 Medications Medications Current Medications Acetaminophen (Acetaminophen 325 Mg Tablet) 650 mg PO Q6H PRN PRN Reason: Headache/Pain Mild Scale (1-3) Al Hydroxide/Mg Hydroxide (Magnesium Hydrox/Alum Hydrox 30 Ml Oral.Susp) 30 ml PO Q6H PRN PRN Reason: Heartburn/Nausea Albuterol Sulfate (Albuterol Sulfate 90 Mcg 8 Gm Inhaler) 2 puff INHALE Q4H PRN PRN Reason: Shortness Of Breath Last Admin: 10/07/21 11:51 Dose: 2 puff Documented by: Atorvastatin Calcium (Atorvastatin Calcium 10 Mg Tablet) 10 mg PO BEDTIME [facility] Last Admin: 10/07/21 22:31 Dose: 10 mg Documented by: Bacitracin (Bacitracin Oint 14 Gm Tube) 1 appl TOPICAL BID [facility]; Protocol Last Admin: 10/07/21 22:29 Dose: 1 appl Documented by: Benztropine Mesylate (Benztropine Mesylate 0.5 Mg Tablet) 0.5 mg PO BID PRN PRN Reason: EPS Chlorpromazine HCl (Chlorpromazine Hcl 25 Mg Tablet) 50 mg PO QID [facility] Last Admin: 10/07/21 22:30 Dose: 50 mg Documented by: Chlorpromazine HCl (Chlorpromazine Hcl 25 Mg Tablet) 75 mg PO Q4H PRN PRN Reason: agitation Last Admin: 10/07/21 23:22 Dose: 75 mg Documented by: Clonazepam (Clonazepam 0.5 Mg Tablet) 0.5 mg PO QID PRN PRN Reason: anxiety/AH Last Admin: 10/07/21 11:10 Dose: 0.5 mg Documented by: Clonidine HCl (Clonidine Hcl 0.1 Mg Tablet) 0.1 mg PO BID@0830,1430 [facility]; Protocol Last Admin: 10/07/21 15:16 Dose: 0.1 mg Documented by: Ferrous Sulfate (Ferrous Sulfate 324 Mg Tablet.Dr) 324 mg PO DAILY [facility] Last Admin: 10/07/21 08:18 Dose: 324 mg Documented by: Fluoxetine HCl (Fluoxetine Hcl 20 Mg Capsule) 40 mg PO DAILY [facility] Last Admin: 10/07/21 08:18 Dose: 40 mg Documented by: Fluticasone Propionate (Fluticasone Propionate 100 Mcg Blst.W.Dev) 2 puff INHALE RBID [facility] Last Admin: 10/07/21 22:28 Dose: 2 puff Documented by: Hydroxyzine HCl (Hydroxyzine Hcl 50 Mg Tablet) 50 mg PO QID PRN PRN Reason: Anxiety Last Admin: 10/06/21 16:29 Dose: 50 mg Documented by: Ibuprofen (Ibuprofen 600 Mg Tablet) 600 mg PO Q6H PRN PRN Reason: Mild Pain (Scale Score 1-4) Lisinopril (Lisinopril 5 Mg Tablet) 5 mg PO DAILY [facility]; Protocol Last Admin: 10/07/21 08:19 Dose: 5 mg Documented by: Magnesium Hydroxide (Milk Of Magnesia 30 Ml Oral.Susp) 30 ml PO DAILY PRN PRN Reason: Constipation Metformin HCl (Metformin Hcl 500 Mg Tablet) 500 mg PO BID [facility] Last Admin: 10/07/21 22:32 Dose: 500 mg Documented by: Montelukast Sodium (Montelukast Sodium 10 Mg Tablet) 10 mg PO BEDTIME [facility] Last Admin: 10/07/21 22:31 Dose: 10 mg Documented by: Nicotine (Nicotine 21 Mg Patch.Td24) 21 mg TRANSDERMA DAILY PRN PRN Reason: smoking cessation Last Admin: 10/07/21 08:29 Dose: 21 mg Documented by: Nystatin (Nystatin Cream 15 Gm Tube) 1 appl TOPICAL BID [facility]; Protocol Last Admin: 10/07/21 22:29 Dose: 1 appl Documented by: Omeprazole (Omeprazole 20 Mg Capsule.Dr) 20 mg PO BID@0630,1630 [facility] Last Admin: 10/07/21 16:59 Dose: 20 mg Documented by: Polyethylene Glycol (Polyethylene Glycol 3350 17 Gm Powd.Pack) 17 gm PO DAILY PRN PRN Reason: Constipation Prazosin HCl (Prazosin Hcl 1 Mg Capsule) 3 mg PO BEDTIME [facility]; Protocol Last Admin: 10/07/21 22:29 Dose: 3 mg Documented by: Trazodone HCl (Trazodone Hcl 50 Mg Tablet) 150 mg PO BEDTIME [facility] Last Admin: 10/07/21 22:31 Dose: 150 mg Documented by: Verapamil HCl (Verapamil Hcl Sr 240 Mg Tablet.Er) 240 mg PO BEDTIME [facility]; Protocol Last Admin: 10/07/21 22:32 Dose: 240 mg Documented by: Allergies Allergies Allergy/AdvReac Type Severity Reaction Status Date / Time Fish Containing Products Allergy Severe ANAPHYLAXIS Verified 08/18/21 18:18 codeine [Codeine] Allergy Unknown RASH Verified 08/18/21 18:18 Penicillins Allergy Unknown RASH Verified 08/18/21 18:18 prednisone [Prednisone] Allergy Unknown RASH Verified 08/18/21 18:18 Sulfa (Sulfonamide Allergy Unknown RASH Verified 08/18/21 18:18 Antibiotics) [Sulfa (Sulfonamides)] azithromycin [AZITHROMYCIN] AdvReac Severe RASH Verified 08/18/21 18:18 nicotine AdvReac Unknown HEART Verified 08/18/21 18:18 PALPITATION TO NICOTINE GUM Seafood Allergy Severe ANAPHYLAXIS Uncoded 07/31/21 20:43 From Geodon Allergy Unknown DYSURIA, Uncoded 07/31/21 20:43 RASH Assessment & Plan Assessment & Plan (1) Depression: Qualifiers: Active/Remission status: currently active Depression Type: major depressive disorder Major depression episode severity: severe Major depression recurrence: recurrent Psychotic features: with psychotic features Qualified Code(s): F33.3 - Major depressive disorder, recurrent, severe with psychotic symptoms Status: Acute Code(s): F32.A - Depression, unspecified (2) Borderline personality disorder: Status: Chronic Code(s): F60.3 - Borderline personality disorder (3) PTSD (post-traumatic stress disorder): Status: Chronic Code(s): F43.10 - Post-traumatic stress disorder, unspecified (4) Suicidal ideation: Status: Resolved Code(s): R45.851 - Suicidal ideations Assessment and Plan: admit to unit, keep safe. 1:1 to prevent SIB. continue prior medications regimen. T/C vibra. 10/08: Continue current regimen and plans I spent minutes with the patient and/or on the patient floor today, greater than?50% of which was spent counseling/coordinating care. Reason for contiued inpatient stay Substantial Risk for: other
[2021-10-08] MEDS: chlorproMAZINE HCl 25 MG TABLET 50 MG PO ×4 (09:36→22:11)
[2021-10-08] MEDS: FLUoxetine HCl 20 MG CAPSULE 40 MG PO (09:39)
[2021-10-08 09:40] VITALS: BP 158/96; PULSE 86
[2021-10-08] MEDS: Omeprazole 20 MG CAPSULE.DR PO ×2 (09:40→17:30)
[2021-10-08] MEDS: metFORMIN HCl 500 MG TABLET PO ×2 (09:40→22:13)
[2021-10-08] MEDS: cloNIDine HCL 0.1 MG TABLET PO ×2 (09:40→15:45)
[2021-10-08] MEDS: Ferrous Sulfate 324 MG TABLET.DR PO (09:40)
[2021-10-08] MEDS: lisinopriL 5 MG TABLET PO (09:40)
[2021-10-08] MEDS: Albuterol Sulfate 90 MCG 8 GM INHALER 2 PUFF INHALE (09:45)
[2021-10-08] MEDS: Fluticasone Propionate 100 MCG BLST.W.DEV 2 PUFF INHALE ×2 (09:45→22:11)
[2021-10-08] MEDS: Nicotine 21 MG PATCH.TD24 TRANSDERMA (09:45)
[2021-10-08] MEDS: Nystatin Cream 15 GM TUBE 1 APPL TOPICAL ×2 (09:45→22:14)
[2021-10-08] MEDS: polyethylene glycoL 3350 17 GM POWD.PACK PO (09:45)
[2021-10-08 10:14] LABS: Glucose, Whole Blood 145 mg/dL (60-115)
[2021-10-08] MEDS: Bacitracin Oint 14 GM TUBE 1 APPL TOPICAL ×2 (10:52→22:14)
[2021-10-08] MEDS: clonazePAM 0.5 MG TABLET PO ×3 (11:14→20:26)
[2021-10-08 15:45] VITALS: BP 158/94; PULSE 99
[2021-10-08 22:00] VITALS: BP 124/73; PULSE 100; RESP 17; TEMP 36.9; O2SAT 97
[2021-10-08] MEDS: Atorvastatin Calcium 10 MG TABLET PO (22:11)
[2021-10-08 22:12] VITALS: BP 124/73; PULSE 100
[2021-10-08] MEDS: traZODone HCL 50 MG TABLET 150 MG PO (22:12)
[2021-10-08] MEDS: VerapamiL HCL SR 240 MG TABLET.ER PO (22:12)
[2021-10-08 22:14] VITALS: BP 124/73; PULSE 100
[2021-10-08] MEDS: Montelukast Sodium 10 MG TABLET PO (22:14)
[2021-10-08] MEDS: Prazosin HCL 1 MG CAPSULE 3 MG PO (22:14)
[2021-10-09] VITALS (7 sets, daily range): BP systolic 117–172; BP diastolic 62–83; PULSE 84–93; RESP 17–18; TEMP 36.2–36.7; O2SAT 96–97
[2021-10-09] MEDS: Omeprazole 20 MG CAPSULE.DR PO ×2 (07:12→17:52)
[2021-10-09 08:00] LABS: Glucose, Whole Blood 99 mg/dL (60-115)
[2021-10-09] MEDS: Fluticasone Propionate 100 MCG BLST.W.DEV 2 PUFF INHALE ×2 (08:16→22:41)
[2021-10-09] MEDS: chlorproMAZINE HCl 25 MG TABLET 50 MG PO ×4 (08:17→22:36)
[2021-10-09] MEDS: clonazePAM 0.5 MG TABLET PO ×2 (08:17→13:44)
[2021-10-09] MEDS: lisinopriL 5 MG TABLET PO (08:17)
[2021-10-09] MEDS: metFORMIN HCl 500 MG TABLET PO ×2 (08:17→22:36)
[2021-10-09] MEDS: Ferrous Sulfate 324 MG TABLET.DR PO (08:18)
[2021-10-09] MEDS: cloNIDine HCL 0.1 MG TABLET PO ×2 (08:18→13:44)
[2021-10-09] MEDS: FLUoxetine HCl 20 MG CAPSULE 40 MG PO (08:18)
--- NOTE | 2021-10-09 09:28 | P.PNPSI_ITS ---
Subjective Subjective Date of Service: 10/09/21 Reason For Visit: Depression, SI Subjective Notes: Conditional Voluntary Medical Problems Affecting Mental Status: No Interim History: Patient was seen and discussed in rounds. Records were rev iewed. She still struggles with self-destructive urges and intrusive thoughts. She is on one-to-one level of care and struggling at times. She is using the Klonopin p.r.n. effectively. No other complaints. Eating and sleeping adequately. No changes were made Review of Systems Review of Systems Fungal infection under her right breast Yes all other systems are reviewed and are negative Mental Status Exam Mental Status Exam Narrative: In today's visit she is pleasant and moderately interactive. Speech is soft-spoken. Little to moderate eye contact. Affect is constricted. She does have auditory hallucinations which are command in nature. Moderate anxiety present. Cognitively she has coherent thought processes. No gross deficits. Cognitively is intact. Judgment is intact. Diagnostics Vital Signs (24Hr): Vital Signs - 24 hr 10/08/21 09:40 10/08/21 15:45 10/08/21 22:00 Temperature 98.5 F Pulse Rate 86 99 100 Respiratory Rate 17 Blood Pressure 158/96 H 158/94 H 124/73 Pulse Oximetry 97 10/08/21 22:12 10/08/21 22:14 10/09/21 08:17 Temperature Pulse Rate 100 100 92 Respiratory Rate Blood Pressure 124/73 124/73 131/65 Pulse Oximetry 10/09/21 08:18 Temperature Pulse Rate 92 Respiratory Rate Blood Pressure 131/65 Pulse Oximetry BMI result Body Mass Index 39.9 Labs Results: 10/06/21 08:08 10/05/21 09:04 Labs: Laboratory Results - last 48 hr 10/07/21 10/08/21 10/09/21 09:41 09:59 07:56 POC Glucose 96 145 H 99 Medications Medications Current Medications Acetaminophen (Acetaminophen 325 Mg Tablet) 650 mg PO Q6H PRN PRN Reason: Headache/Pain Mild Scale (1-3) Al Hydroxide/Mg Hydroxide (Magnesium Hydrox/Alum Hydrox 30 Ml Oral.Susp) 30 ml PO Q6H PRN PRN Reason: Heartburn/Nausea Albuterol Sulfate (Albuterol Sulfate 90 Mcg 8 Gm Inhaler) 2 puff INHALE Q4H PRN PRN Reason: Shortness Of Breath Last Admin: 10/08/21 09:45 Dose: 2 puff Documented by: Atorvastatin Calcium (Atorvastatin Calcium 10 Mg Tablet) 10 mg PO BEDTIME [facility] Last Admin: 10/08/21 22:11 Dose: 10 mg Documented by: Bacitracin (Bacitracin Oint 14 Gm Tube) 1 appl TOPICAL BID [facility]; Protocol Last Admin: 10/08/21 22:14 Dose: 1 appl Documented by: Benztropine Mesylate (Benztropine Mesylate 0.5 Mg Tablet) 0.5 mg PO BID PRN PRN Reason: EPS Chlorpromazine HCl (Chlorpromazine Hcl 25 Mg Tablet) 50 mg PO QID [facility] Last Admin: 10/09/21 08:17 Dose: 50 mg Documented by: Chlorpromazine HCl (Chlorpromazine Hcl 25 Mg Tablet) 75 mg PO Q4H PRN PRN Reason: agitation Last Admin: 10/07/21 23:22 Dose: 75 mg Documented by: Clonazepam (Clonazepam 0.5 Mg Tablet) 0.5 mg PO QID PRN PRN Reason: anxiety/AH Last Admin: 10/09/21 08:17 Dose: 0.5 mg Documented by: Clonidine HCl (Clonidine Hcl 0.1 Mg Tablet) 0.1 mg PO BID@0830,1430 [facility]; Protocol Last Admin: 10/09/21 08:18 Dose: 0.1 mg Documented by: Ferrous Sulfate (Ferrous Sulfate 324 Mg Tablet.) 324 mg PO DAILY [facility] Last Admin: 10/09/21 08:18 Dose: 324 mg Documented by: Fluoxetine HCl (Fluoxetine Hcl 20 Mg Capsule) 40 mg PO DAILY [facility] Last Admin: 10/09/21 08:18 Dose: 40 mg Documented by: Fluticasone Propionate (Fluticasone Propionate 100 Mcg Blst.W.Dev) 2 puff INHALE RBID [facility] Last Admin: 10/09/21 08:16 Dose: 2 puff Documented by: Hydroxyzine HCl (Hydroxyzine Hcl 50 Mg Tablet) 50 mg PO QID PRN PRN Reason: Anxiety Last Admin: 10/06/21 16:29 Dose: 50 mg Documented by: Ibuprofen (Ibuprofen 600 Mg Tablet) 600 mg PO Q6H PRN PRN Reason: Mild Pain (Scale Score 1-4) Lisinopril (Lisinopril 5 Mg Tablet) 5 mg PO DAILY [facility]; Protocol Last Admin: 10/09/21 08:17 Dose: 5 mg Documented by: Magnesium Hydroxide (Milk Of Magnesia 30 Ml Oral.Susp) 30 ml PO DAILY PRN PRN Reason: Constipation Metformin HCl (Metformin Hcl 500 Mg Tablet) 500 mg PO BID [facility] Last Admin: 10/09/21 08:17 Dose: 500 mg Documented by: Montelukast Sodium (Montelukast Sodium 10 Mg Tablet) 10 mg PO BEDTIME [facility] Last Admin: 10/08/21 22:14 Dose: 10 mg Documented by: Nicotine (Nicotine 21 Mg Patch.Td24) 21 mg TRANSDERMA DAILY PRN PRN Reason: smoking cessation Last Admin: 10/08/21 09:45 Dose: 21 mg Documented by: Nystatin (Nystatin Cream 15 Gm Tube) 1 appl TOPICAL BID [facility]; Protocol Last Admin: 10/08/21 22:14 Dose: 1 appl Documented by: Omeprazole (Omeprazole 20 Mg Capsule.Dr) 20 mg PO BID@0630,1630 [facility] Last Admin: 10/09/21 07:12 Dose: 20 mg Documented by: Polyethylene Glycol (Polyethylene Glycol 3350 17 Gm Powd.Pack) 17 gm PO DAILY PRN PRN Reason: Constipation Last Admin: 10/08/21 09:45 Dose: 17 gm Documented by: Prazosin HCl (Prazosin Hcl 1 Mg Capsule) 3 mg PO BEDTIME [facility]; Protocol Last Admin: 10/08/21 22:14 Dose: 3 mg Documented by: Trazodone HCl (Trazodone Hcl 50 Mg Tablet) 150 mg PO BEDTIME [facility] Last Admin: 10/08/21 22:12 Dose: 150 mg Documented by: Verapamil HCl (Verapamil Hcl Sr 240 Mg Tablet.Er) 240 mg PO BEDTIME [facility]; Pro tocol Last Admin: 10/08/21 22:12 Dose: 240 mg Documented by: Allergies Allergies Allergy/AdvReac Type Severity Reaction Status Date / Time Fish Containing Products Allergy Severe ANAPHYLAXIS Verified 08/18/21 18:18 codeine [Codeine] Allergy Unknown RASH Verified 08/18/21 18:18 Penicillins Allergy Unknown RASH Verified 08/18/21 18:18 prednisone [Prednisone] Allergy Unknown RASH Verified 08/18/21 18:18 Sulfa (Sulfonamide Allergy Unknown RASH Verified 08/18/21 18:18 Antibiotics) [Sulfa (Sulfonamides)] azithromycin [AZITHROMYCIN] AdvReac Severe RASH Verified 08/18/21 18:18 nicotine AdvReac Unknown HEART Verified 08/18/21 18:18 PALPITATION TO NICOTINE GUM Seafood Allergy Severe ANAPHYLAXIS Uncoded 07/31/21 20:43 From Geodon Allergy Unknown DYSURIA, Uncoded 07/31/21 20:43 RASH Assessment & Plan Assessment & Plan (1) Depression: Qualifiers: Active/Remission status: currently active Depression Type: major depressive disorder Major depression episode severity: severe Major depression recurrence: recurrent Psychotic features: with psychotic features Qualified Code(s): F33.3 - Major depressive disorder, recurrent, severe with psychotic symptoms Status: Acute Code(s): F32.A - Depression, unspecified (2) Borderline personality disorder: Status: Chronic Code(s): F60.3 - Borderline personality disorder (3) PTSD (post-traumatic stress disorder): Status: Chronic Code(s): F43.10 - Post-traumatic stress disorder, unspecified (4) Suicidal ideation: Status: Resolved Code(s): R45.851 - Suicidal ideations Assessment and Plan: admit to unit, keep safe. 1:1 to prevent SIB. continue prior medications regimen. T/C vibra. 10/08: Continue current regimen and plans 10/09: Continue current plans with no change I spent minutes with the patient and/or on the patient floor today, greater than?50% of which was spent counseling/coordinating care. Reason for contiued inpatient stay Substantial Risk for: harm to self
[2021-10-09] MEDS: Nicotine 21 MG PATCH.TD24 TRANSDERMA (10:36)
[2021-10-09] MEDS: Nystatin Cream 15 GM TUBE 1 APPL TOPICAL ×2 (10:51→23:24)
[2021-10-09] MEDS: Bacitracin Oint 14 GM TUBE 1 APPL TOPICAL ×2 (10:52→23:29)
[2021-10-09] MEDS: chlorproMAZINE HCl 25 MG TABLET 75 MG PO (14:55)
[2021-10-09] MEDS: hydrOXYzine HCL 50 MG TABLET PO (14:55)
[2021-10-09] MEDS: Albuterol Sulfate 90 MCG 8 GM INHALER 2 PUFF INHALE (15:10)
[2021-10-09] MEDS: traZODone HCL 50 MG TABLET 150 MG PO (22:35)
[2021-10-09] MEDS: Atorvastatin Calcium 10 MG TABLET PO (22:36)
[2021-10-09] MEDS: Montelukast Sodium 10 MG TABLET PO (22:37)
[2021-10-09] MEDS: Prazosin HCL 1 MG CAPSULE 3 MG PO (22:39)
[2021-10-09] MEDS: VerapamiL HCL SR 240 MG TABLET.ER PO (22:40)
[2021-10-10] VITALS (7 sets, daily range): BP systolic 126–135; BP diastolic 80–91; PULSE 82–98; RESP 18; TEMP 36.6–36.8; O2SAT 97–98
[2021-10-10] MEDS: Fluticasone Propionate 100 MCG BLST.W.DEV 2 PUFF INHALE ×2 (07:56→22:27)
[2021-10-10] MEDS: Ferrous Sulfate 324 MG TABLET.DR PO (07:57)
[2021-10-10] MEDS: cloNIDine HCL 0.1 MG TABLET PO ×2 (07:57→15:50)
[2021-10-10] MEDS: metFORMIN HCl 500 MG TABLET PO ×2 (07:57→22:29)
[2021-10-10] MEDS: FLUoxetine HCl 20 MG CAPSULE 40 MG PO (07:59)
[2021-10-10] MEDS: chlorproMAZINE HCl 25 MG TABLET 50 MG PO ×4 (07:59→22:29)
[2021-10-10] MEDS: lisinopriL 5 MG TABLET PO (08:00)
[2021-10-10] MEDS: Omeprazole 20 MG CAPSULE.DR PO ×2 (08:00→17:19)
[2021-10-10] MEDS: Nicotine 21 MG PATCH.TD24 TRANSDERMA (08:01)
[2021-10-10] MEDS: clonazePAM 0.5 MG TABLET PO (10:18)
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
[2021-10-10] MEDS: Nystatin Cream 15 GM TUBE 1 APPL TOPICAL ×2 (15:42→22:27)
[2021-10-10] MEDS: Bacitracin Oint 14 GM TUBE 1 APPL TOPICAL ×2 (15:43→22:27)
[2021-10-10] MEDS: VerapamiL HCL SR 240 MG TABLET.ER PO (22:28)
[2021-10-10] MEDS: Atorvastatin Calcium 10 MG TABLET PO (22:29)
[2021-10-10] MEDS: traZODone HCL 50 MG TABLET 150 MG PO (22:29)
[2021-10-10] MEDS: Montelukast Sodium 10 MG TABLET PO (22:30)
[2021-10-10] MEDS: Prazosin HCL 1 MG CAPSULE 3 MG PO (22:40)
[2021-10-11] VITALS (7 sets, daily range): BP systolic 129–137; BP diastolic 81–91; PULSE 81–95; RESP 16; TEMP 36.2–36.7; O2SAT 96
[2021-10-11] MEDS: FLUoxetine HCl 20 MG CAPSULE 40 MG PO (08:34)
[2021-10-11] MEDS: chlorproMAZINE HCl 25 MG TABLET 50 MG PO ×4 (08:34→22:25)
[2021-10-11] MEDS: Omeprazole 20 MG CAPSULE.DR PO ×2 (08:34→17:06)
[2021-10-11] MEDS: Ferrous Sulfate 324 MG TABLET.DR PO (08:35)
[2021-10-11] MEDS: lisinopriL 5 MG TABLET PO (08:35)
[2021-10-11] MEDS: metFORMIN HCl 500 MG TABLET PO ×2 (08:36→22:26)
[2021-10-11] MEDS: cloNIDine HCL 0.1 MG TABLET PO ×2 (08:36→14:16)
[2021-10-11] MEDS: Fluticasone Propionate 100 MCG BLST.W.DEV 2 PUFF INHALE ×2 (08:38→21:17)
[2021-10-11] MEDS: Albuterol Sulfate 90 MCG 8 GM INHALER 2 PUFF INHALE (08:38)
[2021-10-11] MEDS: Nicotine 21 MG PATCH.TD24 TRANSDERMA (08:45)
[2021-10-11 09:04] LABS: Glucose, Whole Blood 88 mg/dL (60-115)
[2021-10-11 09:04] LABS: Anion Gap 10 (12-20); Blood Urea Nitrogen 18 mg/dL (9-16); Calcium 9.3 mg/dL (8.4-10.2); Carbon Dioxide 30 mmol/L (22-29); Chloride 103 mmol/L (96-108); Creatinine Clr Calc Pharmacy 107.9; Estimated Glomerular Filt Rate > 60; Glucose Random 92 mg/dL (60-115); Potassium 4.2 mmol/L (3.3-5.1); Sodium 139 mmol/L (135-145)
[2021-10-11] MEDS: clonazePAM 0.5 MG TABLET PO (10:55)
[2021-10-11] MEDS: Bacitracin Oint 14 GM TUBE 1 APPL TOPICAL ×2 (14:17→21:41)
[2021-10-11] MEDS: Nystatin Cream 15 GM TUBE 1 APPL TOPICAL ×2 (14:17→21:17)
--- NOTE | 2021-10-11 15:31 | HO.PSYCHPN ---
Subjective Subjective Date of Service: 10/11/21 Reason For Visit: Depression, SI Subjective Notes: Harvey Warning and Conditional Voluntary Healthcare Proxy: No Guardianship: No Medical Problems Affecting Mental Status: No Interim History: Patient seen and discussed with team. Patient evaluated this morning and upon interview pt reports the holiday season is difficult for her because on her cousin completed suicide in front of pt (shot herself) when pt was age 9. Also reports prior to this admission, her roommate wrote her a letter saying she does not want to be friends anymore, called pt toxic. Pt says she is feeling depressed and she is having urges to self harm in any way possible. Says medications only work for a little while then they dont work anymore. Shows me a positive coping skill book she made with staff. Pt reports she feels safe with a 1:1 for safety. Says she plans to shower, will utilize staff support. Appetite is lower. Sleep is okay, falls asleep 11pm. Says she feels hopeless and worthless. In the milieu, patient is safe and appropriate in behavior, visible, ambulates with 1:1 staff. Denies irritability or assaultive ideation. Says she feels safe. Medication Compliance: Yes Side effects from medications: No Attending Groups: Intermittent Review of Systems Acute medical concerns: No Medical Review of Systems: unchanged Mental Status Exam Mental Status Exam Narrative: A&O. Casual attire, dyed hair, overweight, not malodorous. Intermittent eye contact, attentive. No Tics or Tremors. No abnormal involuntary movements. Calm, cooperative, engaged. Non-pressured speech, spontaneous with regular rate and rhythm, normal volume and prosody. No prolonged speech latency or dysarthria. Mood is ?depressed,? affect is dysphoric, behavior is somewhat childlike. Endorses SI and urges to self harm, however has not engaged in self harm and says she feels safe. Denies HI upon inquiry. Denies A/VH or delusional thought content. Thoughts are ruminative on self harm, dysphoria. No known cognitive or memory impairment. Insight/ Judgment limited but adequate. Diagnostics Vital Signs (24Hr): Vital Signs - 24 hr 10/10/21 15:50 10/10/21 18:00 10/10/21 22:28 Temperature 98.2 F Pulse Rate 98 82 84 Respiratory Rate 18 Blood Pressure 132/91 H 128/82 126/84 Pulse Oximetry 98 10/10/21 22:40 10/11/21 08:12 10/11/21 08:35 Temperature 98.1 F Pulse Rate 82 81 81 Respiratory Rate 16 Blood Pressure 127/82 129/81 129/81 Pulse Oximetry 96 10/11/21 08:36 10/11/21 14:16 Temperature Pulse Rate 81 90 Respiratory Rate Blood Pressure 129/81 132/91 H Pulse Oximetry BMI result Body Mass Index 39.9 Labs Results: 10/06/21 08:08 10/11/21 08:27 Labs: Laboratory Results - last 48 hr 10/11/21 10/11/21 08:27 08:51 Sodium 139 Potassium 4.2 Chloride 103 Carbon Dioxide 30 H Anion Gap 10 L BUN 18 H D Creatinine 0.74 Estim Creat Clear Calc 107.9 Estimated GFR > 60 POC Glucose 88 Random Glucose 92 Calcium 9.3 Medications Medications Current Medications Acetaminophen (Acetaminophen 325 Mg Tablet) 650 mg PO Q6H PRN PRN Reason: Headache/Pain Mild Scale (1-3) Al Hydroxide/Mg Hydroxide (Magnesium Hydrox/Alum Hydrox 30 Ml Oral.Susp) 30 ml PO Q6H PRN PRN Reason: Heartburn/Nausea Albuterol Sulfate (Albuterol Sulfate 90 Mcg 8 Gm Inhaler) 2 puff INHALE Q4H PRN PRN Reason: Shortness Of Breath Last Admin: 10/11/21 08:38 Dose: 2 puff Documented by: Atorvastatin Calcium (Atorvastatin Calcium 10 Mg Tablet) 10 mg PO BEDTIME [facility] Last Admin: 10/10/21 22:29 Dose: 10 mg Documented by: Bacitracin (Bacitracin Oint 14 Gm Tube) 1 appl TOPICAL BID [facility]; Protocol Last Admin: 10/11/21 14:17 Dose: 1 appl Documented by: Benztropine Mesylate (Benztropine Mesylate 0.5 Mg Tablet) 0.5 mg PO BID PRN PRN Reason: EPS Chlorpromazine HCl (Chlorpromazine Hcl 25 Mg Tablet) 50 mg PO QID [facility] Last Admin: 10/11/21 14:16 Dose: 50 mg Documented by: Chlorpromazine HCl (Chlorpromazine Hcl 25 Mg Tablet) 75 mg PO Q4H PRN PRN Reason: agitation Last Admin: 10/09/21 14:55 Dose: 75 mg Documented by: Clonazepam (Clonazepam 0.5 Mg Tablet) 0.5 mg PO QID PRN PRN Reason: Anxiety Last Admin: 10/11/21 10:55 Dose: 0.5 mg Documented by: Clonidine HCl (Clonidine Hcl 0.1 Mg Tablet) 0.1 mg PO BID@0830,1430 [facility]; Protocol Last Admin: 10/11/21 14:16 Dose: 0.1 mg Documented by: Ferrous Sulfate (Ferrous Sulfate 324 Mg Tablet.Dr) 324 mg PO DAILY [facility] Last Admin: 10/11/21 08:35 Dose: 324 mg Documented by: Fluoxetine HCl (Fluoxetine Hcl 20 Mg Capsule) 40 mg PO DAILY [facility] Last Admin: 10/11/21 08:34 Dose: 40 mg Documented by: Fluticasone Propionate (Fluticasone Propionate 100 Mcg Blst.W.Dev) 2 puff INHALE RBID [facility] Last Admin: 10/11/21 08:38 Dose: 2 puff Documented by: Hydroxyzine HCl (Hydroxyzine Hcl 50 Mg Tablet) 50 mg PO QID PRN PRN Reason: Anxiety Last Admin: 10/09/21 14:55 Dose: 50 mg Documented by: Ibuprofen (Ibuprofen 600 Mg Tablet) 600 mg PO Q6H PRN PRN Reason: Mild Pain (Scale Score 1-4) Lisinopril (Lisinopril 5 Mg Tablet) 5 mg PO DAILY [facility]; Protocol Last Admin: 10/11/21 08:35 Dose: 5 mg Documented by: Magnesium Hydroxide (Milk Of Magnesia 30 Ml Oral.Susp) 30 ml PO DAILY PRN PRN Reason: Constipation Metformin HCl (Metformin Hcl 500 Mg Tablet) 500 mg PO BID [facility] Last Admin: 10/11/21 08:36 Dose: 500 mg Documented by: Montelukast Sodium (Montelukast Sodium 10 Mg Tablet) 10 mg PO BEDTIME [facility] Last Admin: 10/10/21 22:30 Dose: 10 mg Documented by: Nicotine (Nicotine 21 Mg Patch.Td24) 21 mg TRANSDERMA DAILY PRN PRN Reason: smoking cessation Last Admin: 10/11/21 08:45 Dose: 21 mg Documented by: Nystatin (Nystatin Cream 15 Gm Tube) 1 appl TOPICAL BID [facility]; Protocol Last Admin: 10/11/21 14:17 Dose: 1 appl Documented by: Omeprazole (Omeprazole 20 Mg Capsule.Dr) 20 mg PO BID@0630,0530 [facility] Last Admin: 10/11/21 08:34 Dose: 20 mg Documented by: Polyethylene Glycol (Polyethylene Glycol 3350 17 Gm Powd.Pack) 17 gm PO DAILY PRN PRN Reason: Constipation Last Admin: 10/08/21 09:45 Dose: 17 gm Documented by: Prazosin HCl (Prazosin Hcl 1 Mg Capsule) 3 mg PO BEDTIME [facility]; Protocol Last Admin: 10/10/21 22:40 Dose: 3 mg Documented by: Trazodone HCl (Trazodone Hcl 50 Mg Tablet) 150 mg PO BEDTIME [facility] Last Admin: 10/10/21 22:29 Dose: 150 mg Documented by: Verapamil HCl (Verapamil Hcl Sr 240 Mg Tablet.Er) 240 mg PO BEDTIME [facility]; Protocol Last Admin: 10/10/21 22:28 Dose: 240 mg Documented by: Allergies Allergies Allergy/AdvReac Type Severity Reaction Status Date / Time Fish Containing Products Allergy Severe ANAPHYLAXIS Verified 08/18/21 18:18 codeine [Codeine] Allergy Unknown RASH Verified 08/18/21 18:18 Penicillins Allergy Unknown RASH Verified 08/18/21 18:18 prednisone [Prednisone] Allergy Unknown RASH Verified 08/18/21 18:18 Sulfa (Sulfonamide Allergy Unknown RASH Verified 08/18/21 18:18 Antibiotics) [Sulfa (Sulfonamides)] azithromycin [AZITHROMYCIN] AdvReac Severe RASH Verified 08/18/21 18:18 nicotine AdvReac Unknown HEART Verified 08/18/21 18:18 PALPITATION TO NICOTINE GUM Seafood Allergy Severe ANAPHYLAXIS Uncoded 07/31/21 20:43 From Geodon Allergy Unknown DYSURIA, Uncoded 07/31/21 20:43 RASH Assessment & Plan Assessment & Plan (1) Depression: Qualifiers: Active/Remission status: currently active Depression Type: major depressive disorder Major depression episode severity: severe Major depression recurrence: recurrent Psychotic features: with psychotic features Qualified Code(s): F33.3 - Major depressive disorder, recurrent, severe with psychotic symptoms Status: Acute Code(s): F32.A - Depression, unspecified (2) Borderline personality disorder: Status: Chronic Code(s): F60.3 - Borderline personality disorder (3) PTSD (post-traumatic stress disorder): Status: Chronic Code(s): F43.10 - Post-traumatic stress disorder, unspecified (4) Suicidal ideation: Status: Resolved Code(s): R45.851 - Suicidal ideations Assessment and Plan: admit to unit, keep safe. 1:1 to prevent SIB. continue prior medications regimen. T/C [facility]; contact hardik vijay to review case. 10/11: Reports depressed mood, struggling with suicidal ideations, urges to self harm, has been on a 1:1 since admission. Reviewed med history, prozac recently decreased due to possible activation at 60 mg. She has PRN medications to target anxiety, klonopin and thorazine, which were recently increased. Pt denies past benefit on TMS and ECT. Has past trials on Risperdal, haldol, wellbutrin, celexa, cymbalta, abilify, seroquel XR, revia, trileptal, lithium. She reports lithium was helpful for SI but she was taken off it due to I got toxic. Reviewed CBC, CMP, pt is willing to retrial lithium ER at a low dose. Will start lithium ER 300 mg QHS, discontinue lisinopril 5 mg QAM due to drug interaction and will monitor BP, as pt already has other rate controlling medications on board. Monitor response to medications. Monitor for safety in the milieu. Discharge on stabilization. Patient seen. Chart reviewed. Discussed with team. Obtain collateral contact info?as needed I spent minutes with the patient and/or on the patient floor today, greater than?50% of which was spent counseling/coordinating care. Reason for contiued inpatient stay Substantial Risk for: harm to self, rapid decompensation and med/psych decompensation
[2021-10-11] MEDS: traZODone HCL 50 MG TABLET 150 MG PO (22:24)
[2021-10-11] MEDS: VerapamiL HCL SR 240 MG TABLET.ER PO (22:24)
[2021-10-11] MEDS: Prazosin HCL 1 MG CAPSULE 3 MG PO (22:25)
[2021-10-11] MEDS: Lithium Carbonate ER 300 MG TABLET.ER PO (22:26)
[2021-10-11] MEDS: Atorvastatin Calcium 10 MG TABLET PO (22:27)
[2021-10-11] MEDS: Montelukast Sodium 10 MG TABLET PO (22:27)
[2021-10-11] MEDS: Magnesium Hydrox/Alum Hydrox 30 ML ORAL.SUSP PO (22:59)
[2021-10-11] MEDS: chlorproMAZINE HCl 25 MG TABLET 75 MG PO (23:34)
[2021-10-12] VITALS (7 sets, daily range): BP systolic 127–140; BP diastolic 75–84; PULSE 88–94; RESP 16; TEMP 36.3–36.5; O2SAT 96–97
[2021-10-12] MEDS: Omeprazole 20 MG CAPSULE.DR PO ×2 (06:30→16:40)
[2021-10-12 08:54] LABS: Glucose, Whole Blood 90 mg/dL (60-115)
[2021-10-12] MEDS: FLUoxetine HCl 20 MG CAPSULE 40 MG PO (08:56)
[2021-10-12] MEDS: metFORMIN HCl 500 MG TABLET PO ×2 (08:56→22:50)
[2021-10-12] MEDS: cloNIDine HCL 0.1 MG TABLET PO ×2 (08:56→14:48)
[2021-10-12] MEDS: chlorproMAZINE HCl 25 MG TABLET 50 MG PO ×4 (08:56→22:50)
[2021-10-12] MEDS: Ferrous Sulfate 324 MG TABLET.DR PO (08:56)
[2021-10-12] MEDS: Fluticasone Propionate 100 MCG BLST.W.DEV 2 PUFF INHALE ×2 (08:58→22:51)
[2021-10-12] MEDS: Bacitracin Oint 14 GM TUBE 1 APPL TOPICAL ×2 (08:58→22:50)
[2021-10-12] MEDS: clonazePAM 0.5 MG TABLET PO (09:15)
[2021-10-12] MEDS: Nystatin Cream 15 GM TUBE 1 APPL TOPICAL ×2 (10:06→22:50)
--- NOTE | 2021-10-12 17:54 | HO.PSYCHPN ---
Subjective Subjective Date of Service: 10/12/21 Reason For Visit: Depression, SI Interim History: Patient seen and discussed with team. Per RN, pt reported some urinary retention but bladder scan did not indicate need for straight cath. Patient evaluated this morning and upon interview she reports she feels drained physically and has been sleeping most of the day because every time I wake up I want to kill myself. Pt started lithium last night, denies adverse effects. Says she wants to go back to sleep now but knows if she does I wont sleep tonight. Ate half of lunch, half of breakfast. Took a shower last night. Staying hydrating. Pt endorses AH that im a failure and im hopeless. Continues to report she does not feel safe if she is taken off 1:1 safety precautions, as she believes she will self harm. Says her AH dont listen when she tries to quiet them. Didnt go to art group because didnt feel safe, went to back to sleep instead.? In the milieu, patient is isolative behavior, remains on 1:1 safety precautions. Denies irritability or assaultive ideation. Says she feels safe. Medication Compliance: Yes Side effects from medications: No Attending Groups: Intermittent Review of Systems Acute medical concerns: No Medical Review of Systems: unchanged Mental Status Exam Mental Status Exam Narrative: A&O. Casual attire, dyed hair, overweight, not malodorous. Intermittent eye contact, attentive. No Tics or Tremors. No abnormal involuntary movements. Calm, cooperative, engaged. Non-pressured speech, spontaneous with regular rate and rhythm, normal volume and prosody. No prolonged speech latency or dysarthria. Mood is ?depressed,? affect is dysphoric, behavior is somewhat childlike. Endorses SI and urges to self harm, however has not engaged in self harm and says she feels safe. Denies HI upon inquiry. Denies A/VH or delusional thought content. Thoughts are ruminative on self harm, dysphoria. No known cognitive or memory impairment. Insight/ Judgment limited but adequate. Diagnostics Vital Signs (24Hr): Vital Signs - 24 hr 10/13/21 15:10 10/13/21 22:14 10/13/21 22:15 Temperature Pulse Rate 92 89 89 Respiratory Rate Blood Pressure 157/88 H 143/92 H 143/92 H Pulse Oximetry 10/13/21 22:19 10/14/21 09:15 Temperature 97.7 F 98.0 F Pulse Rate 92 Respiratory Rate 16 Blood Pressure 111/71 Pulse Oximetry 98 94 BMI result Body Mass Index 41.8 Labs Results: 10/06/21 08:08 10/11/21 08:27 Labs: Laboratory Results - last 48 hr 10/13/21 10/14/21 08:22 08:59 POC Glucose 112 102 Medications Medications Current Medications Acetaminophen (Acetaminophen 325 Mg Tablet) 650 mg PO Q6H PRN PRN Reason: Headache/Pain Mild Scale (1-3) Al Hydroxide/Mg Hydroxide (Magnesium Hydrox/Alum Hydrox 30 Ml Oral.Susp) 30 ml PO Q6H PRN PRN Reason: Heartburn/Nausea Last Admin: 10/11/21 22:59 Dose: 30 ml Documented by: Albuterol Sulfate (Albuterol Sulfate 90 Mcg 8 Gm Inhaler) 2 puff INHALE Q4H PRN PRN Reason: Shortness Of Breath Last Admin: 10/13/21 15:44 Dose: 2 puff Documented by: Atorvastatin Calcium (Atorvastatin Calcium 10 Mg Tablet) 10 mg PO BEDTIME [facility] Last Admin: 10/13/21 22:14 Dose: 10 mg Documented by: Benztropine Mesylate (Benztropine Mesylate 0.5 Mg Tablet) 0.5 mg PO BID PRN PRN Reason: EPS Chlorpromazine HCl (Chlorpromazine Hcl 25 Mg Tablet) 50 mg PO QID [facility] Last Admin: 10/14/21 09:14 Dose: 50 mg Documented by: Chlorpromazine HCl (Chlorpromazine Hcl 25 Mg Tablet) 75 mg PO Q4H PRN PRN Reason: agitation Last Admin: 10/13/21 20:24 Dose: 75 mg Documented by: Clonazepam (Clonazepam 0.5 Mg Tablet) 0.5 mg PO QID PRN PRN Reason: Anxiety Last Admin: 10/13/21 19:12 Dose: 0.5 mg Documented by: Clonidine HCl (Clonidine Hcl 0.1 Mg Tablet) 0.1 mg PO BID@0830,1430 [facility]; Protocol Last Admin: 10/14/21 09:15 Dose: 0.1 mg Documented by: Ferrous Sulfate (Ferrous Sulfate 324 Mg Tablet.) 324 mg PO DAILY [facility] Last Admin: 10/14/21 09:15 Dose: 324 mg Documented by: Fluoxetine HCl (Fluoxetine Hcl 20 Mg Capsule) 40 mg PO DAILY [facility] Last Admin: 10/14/21 09:14 Dose: 40 mg Documented by: Fluticasone Propionate (Fluticasone Propionate 100 Mcg Blst.W.Dev) 2 puff INHALE RBID [facility] Last Admin: 10/14/21 09:14 Dose: 2 puff Documented by: Hydroxyzine HCl (Hydroxyzine Hcl 50 Mg Tablet) 50 mg PO QID PRN PRN Reason: Anxiety Last Admin: 10/09/21 14:55 Dose: 50 mg Documented by: [place] Carbonate ([place] Carbonate Er 300 Mg Tablet.Er) 300 mg PO BEDTIME [facility] Last Admin: 10/13/21 22:14 Dose: 300 mg Documented by: Magnesium Hydroxide (Milk Of Magnesia 30 Ml Oral.Susp) 30 ml PO DAILY PRN PRN Reason: Constipation Metformin HCl (Metformin Hcl 500 Mg Tablet) 500 mg PO BID [facility] Last Admin: 10/14/21 09:18 Dose: 500 mg Documented by: Montelukast Sodium (Montelukast Sodium 10 Mg Tablet) 10 mg PO BEDTIME [facility] Last Admin: 10/13/21 22:14 Dose: 10 mg Documented by: Nicotine (Nicotine 21 Mg Patch.Td24) 21 mg TRANSDERMA DAILY PRN PRN Reason: smoking cessation Last Admin: 10/11/21 08:45 Dose: 21 mg Documented by: Nystatin (Nystatin Cream 15 Gm Tube) 1 appl TOPICAL BID [facility]; Protocol Last Admin: 10/14/21 09:19 Dose: 1 appl Documented by: Omeprazole (Omeprazole 20 Mg Capsule.) 20 mg PO BID@0630,1630 [facility] Last Admin: 10/14/21 09:14 Dose: 20 mg Documented by: Polyethylene Glycol (Polyethylene Glycol 3350 17 Gm Powd.Pack) 17 gm PO DAILY PRN PRN Reason: Constipation Last Admin: 10/08/21 09:45 Dose: 17 gm Documented by: Prazosin HCl (Prazosin Hcl 1 Mg Capsule) 3 mg PO BEDTIME [facility]; Protocol Last Admin: 10/13/21 22:14 Dose: 3 mg Documented by: Trazodone HCl (Trazodone Hcl 50 Mg Tablet) 150 mg PO BEDTIME [facility] Last Admin: 10/13/21 22:14 Dose: 150 mg Documented by: Verapamil HCl (Verapamil Hcl Sr 120 Mg Tablet.Er) 120 mg PO BEDTIME [facility]; Protocol Last Admin: 10/13/21 22:15 Dose: 120 mg Documented by: Verapamil HCl (Verapamil Hcl Sr 180 Mg Tablet.Er) 180 mg PO BEDTIME [facility]; Protocol Last Admin: 10/13/21 22:15 Dose: 180 mg Documented by: Allergies Allergies Allergy/AdvReac Type Severity Reaction Status Date / Time Fish Containing Products Allergy Severe ANAPHYLAXIS Verified 08/18/21 18:18 codeine [Codeine] Allergy Unknown RASH Verified 08/18/21 18:18 Penicillins Allergy Unknown RASH Verified 08/18/21 18:18 prednisone [Prednisone] Allergy Unknown RASH Verified 08/18/21 18:18 Sulfa (Sulfonamide Allergy Unknown RASH Verified 08/18/21 18:18 Antibiotics) [Sulfa (Sulfonamides)] azithromycin [AZITHROMYCIN] AdvReac Severe RASH Verified 08/18/21 18:18 nicotine AdvReac Unknown HEART Verified 08/18/21 18:18 PALPITATION TO NICOTINE GUM Seafood Allergy Severe ANAPHYLAXIS Uncoded 07/31/21 20:43 From Geodon Allergy Unknown DYSURIA, Uncoded 07/31/21 20:43 RASH Assessment & Plan Assessment & Plan (1) Depression: Qualifiers: Active/Remission status: currently active Depression Type: major depressive disorder Major depression episode severity: severe Major depression recurrence: recurrent Psychotic features: with psychotic features Qualified Code(s): F33.3 - Major depressive disorder, recurrent, severe with psychotic symptoms Status: Acute Code(s): F32.A - Depression, unspecified (2) Borderline personality disorder: Status: Chronic Code(s): F60.3 - Borderline personality disorder (3) PTSD (post-traumatic stress disorder): Status: Chronic Code(s): F43.10 - Post-traumatic stress disorder, unspecified (4) Suicidal ideation: Status: Resolved Code(s): R45.851 - Suicidal ideations Assessment and Plan: admit to unit, keep safe. 1:1 to prevent SIB. continue prior medications regimen. T/C vibra; contact hardik linares to review case. 10/11: Reports depressed mood, struggling with suicidal ideations, urges to self harm, has been on a 1:1 since admission. Reviewed med history, prozac recently decreased due to possible activation at 60 mg. She has PRN medications to target anxiety, klonopin and thorazine, which were recently increased. Pt denies past benefit on TMS and ECT. Has past trials on Risperdal, haldol, wellbutrin, celexa, cymbalta, abilify, seroquel XR, revia, trileptal, lithium. She reports lithium was helpful for SI but she was taken off it due to I got toxic. Reviewed CBC, CMP, pt is willing to retrial lithium ER at a low dose. Will start lithium ER 300 mg QHS, discontinue lisinopril 5 mg QAM due to drug interaction and will monitor BP, as pt already has other rate controlling medications on board. 10/12: No medication changes, will monitor lithium trial for benefit. Monitor response to medications. Monitor for safety in the milieu. Discharge on stabilization. Patient seen. Chart reviewed. Discussed with team. Obtain collateral contact info?as needed I spent minutes with the patient and/or on the patient floor today, greater than?50% of which was spent counseling/coordinating care. Reason for contiued inpatient stay Substantial Risk for: harm to self, rapid decompensation and med/psych decompensation
[2021-10-12] MEDS: traZODone HCL 50 MG TABLET 150 MG PO (22:48)
[2021-10-12] MEDS: Prazosin HCL 1 MG CAPSULE 3 MG PO (22:48)
[2021-10-12] MEDS: VerapamiL HCL SR 240 MG TABLET.ER PO (22:49)
[2021-10-12] MEDS: Atorvastatin Calcium 10 MG TABLET PO (22:49)
[2021-10-12] MEDS: Lithium Carbonate ER 300 MG TABLET.ER PO (22:49)
[2021-10-12] MEDS: Montelukast Sodium 10 MG TABLET PO (22:50)
[2021-10-13 06:00] VITALS: BP 142/65; PULSE 85; RESP 16; TEMP 36.3; O2SAT 97
[2021-10-13] MEDS: Omeprazole 20 MG CAPSULE.DR PO ×2 (06:02→17:10)
[2021-10-13 07:00] VITALS: BMI 41.8
[2021-10-13 08:27] LABS: Glucose, Whole Blood 112 mg/dL (60-115)
[2021-10-13] MEDS: Fluticasone Propionate 100 MCG BLST.W.DEV 2 PUFF INHALE ×2 (08:33→22:17)
[2021-10-13 08:34] VITALS: BP 142/65; PULSE 85
[2021-10-13] MEDS: Ferrous Sulfate 324 MG TABLET.DR PO (08:34)
[2021-10-13] MEDS: chlorproMAZINE HCl 25 MG TABLET 50 MG PO ×4 (08:34→22:14)
[2021-10-13] MEDS: cloNIDine HCL 0.1 MG TABLET PO ×2 (08:34→15:10)
[2021-10-13] MEDS: metFORMIN HCl 500 MG TABLET PO ×2 (08:34→22:14)
[2021-10-13] MEDS: FLUoxetine HCl 20 MG CAPSULE 40 MG PO (08:34)
[2021-10-13] MEDS: Bacitracin Oint 14 GM TUBE 1 APPL TOPICAL (09:59)
[2021-10-13] MEDS: clonazePAM 0.5 MG TABLET PO ×2 (09:59→19:12)
[2021-10-13] MEDS: Nystatin Cream 15 GM TUBE 1 APPL TOPICAL ×2 (10:00→22:18)
[2021-10-13 15:10] VITALS: BP 157/88; PULSE 92
[2021-10-13] MEDS: chlorproMAZINE HCl 25 MG TABLET 75 MG PO ×2 (15:11→20:24)
[2021-10-13] MEDS: Albuterol Sulfate 90 MCG 8 GM INHALER 2 PUFF INHALE (15:44)
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
--- NOTE | 2021-10-13 18:57 | HO.PSYCHPN ---
Subjective Subjective Date of Service: 10/13/21 Reason For Visit: Depression, SI Interim History: Patient seen and discussed with team. Continues to remain on 1:1, has had difficulty with challenging her to be off it, lately refusing to go to groups, RN is trying to encourage more structure in her day. Patient evaluated this morning and upon interview she says she is having a really hard time. Has thoughts of self harm every day and says being with somebody helps a little bit. Reports she is hearing voices and when im in group the voices start telling me to hurt myself, i wish they would go away. However, also discussed that if the voices are there anyway, she should try to participate, however pt says she does not like groups because she has difficulty concentrating and some of the topics are hard, my mind wanders. Likes art group. Took a nap today, energy is okay. Attributes hypersomnia to depression. In the milieu, patient is maintaining with 1:1 support, discussed trialing off this for a couple hours but pt says this makes her anxious. Denies irritability or assaultive ideation. Says she feels safe. Medication Compliance: Yes Side effects from medications: No Attending Groups: Yes Review of Systems Acute medical concerns: No Medical Review of Systems: unchanged Mental Status Exam Mental Status Exam Narrative: A&O. Casual attire, dyed hair, overweight, not malodorous. Intermittent eye contact, attentive. No Tics or Tremors. No abnormal involuntary movements. Calm, cooperative, engaged. Non-pressured speech, spontaneous with regular rate and rhythm, normal volume and prosody. No prolonged speech latency or dysarthria. Mood is ?depressed,? affect is dysphoric, behavior is somewhat childlike. Endorses SI and urges to self harm, however has not engaged in self harm and says she feels safe. Denies HI upon inquiry. Denies A/VH or delusional thought content. Thoughts are ruminative on self harm, dysphoria. No known cognitive or memory impairment. Insight/ Judgment limited but adequate. Diagnostics Vital Signs (24Hr): Vital Signs - 24 hr 10/12/21 22:47 10/12/21 22:48 10/12/21 22:49 Temperature 97.3 F Pulse Rate 88 88 88 Respiratory Rate Blood Pressure 140/84 H 140/84 H 140/84 H Pulse Oximetry 97 10/13/21 06:00 10/13/21 08:34 10/13/21 15:10 Temperature 97.3 F Pulse Rate 85 85 92 Respiratory Rate 16 Blood Pressure 142/65 H 142/65 H 157/88 H Pulse Oximetry 97 BMI result Body Mass Index 41.8 Labs Results: 10/06/21 08:08 10/11/21 08:27 Labs: Laboratory Results - last 48 hr 10/12/21 10/13/21 08:48 08:22 POC Glucose 90 112 Medications Medications Current Medications Acetaminophen (Acetaminophen 325 Mg Tablet) 650 mg PO Q6H PRN PRN Reason: Headache/Pain Mild Scale (1-3) Al Hydroxide/Mg Hydroxide (Magnesium Hydrox/Alum Hydrox 30 Ml Oral.Susp) 30 ml PO Q6H PRN PRN Reason: Heartburn/Nausea Last Admin: 10/11/21 22:59 Dose: 30 ml Documented by: Albuterol Sulfate (Albuterol Sulfate 90 Mcg 8 Gm Inhaler) 2 puff INHALE Q4H PRN PRN Reason: Shortness Of Breath Last Admin: 10/13/21 15:44 Dose: 2 puff Documented by: Atorvastatin Calcium (Atorvastatin Calcium 10 Mg Tablet) 10 mg PO BEDTIME [facility] Last Admin: 10/12/21 22:49 Dose: 10 mg Documented by: Benztropine Mesylate (Benztropine Mesylate 0.5 Mg Tablet) 0.5 mg PO BID PRN PRN Reason: EPS Chlorpromazine HCl (Chlorpromazine Hcl 25 Mg Tablet) 50 mg PO QID [facility] Last Admin: 10/13/21 17:10 Dose: 50 mg Documented by: Chlorpromazine HCl (Chlorpromazine Hcl 25 Mg Tablet) 75 mg PO Q4H PRN PRN Reason: agitation Last Admin: 10/13/21 15:11 Dose: 75 mg Documented by: Clonazepam (Clonazepam 0.5 Mg Tablet) 0.5 mg PO QID PRN PRN Reason: Anxiety Last Admin: 10/13/21 09:59 Dose: 0.5 mg Documented by: Clonidine HCl (Clonidine Hcl 0.1 Mg Tablet) 0.1 mg PO BID@0830,1430 [facility]; Protocol Last Admin: 10/13/21 15:10 Dose: 0.1 mg Documented by: Ferrous Sulfate (Ferrous Sulfate 324 Mg Tablet.) 324 mg PO DAILY [facility] Last Admin: 10/13/21 08:34 Dose: 324 mg Documented by: Fluoxetine HCl (Fluoxetine Hcl 20 Mg Capsule) 40 mg PO DAILY [facility] Last Admin: 10/13/21 08:34 Dose: 40 mg Documented by: Fluticasone Propionate (Fluticasone Propionate 100 Mcg Blst.W.Dev) 2 puff INHALE RBID [facility] Last Admin: 10/13/21 08:33 Dose: 2 puff Documented by: Hydroxyzine HCl (Hydroxyzine Hcl 50 Mg Tablet) 50 mg PO QID PRN PRN Reason: Anxiety Last Admin: 10/09/21 14:55 Dose: 50 mg Documented by: [place] Carbonate ([place] Carbonate Er 300 Mg Tablet.Er) 300 mg PO BEDTIME [facility] Last Admin: 10/12/21 22:49 Dose: 300 mg Documented by: Magnesium Hydroxide (Milk Of Magnesia 30 Ml Oral.Susp) 30 ml PO DAILY PRN PRN Reason: Constipation Metformin HCl (Metformin Hcl 500 Mg Tablet) 500 mg PO BID [facility] Last Admin: 10/13/21 08:34 Dose: 500 mg Documented by: Montelukast Sodium (Montelukast Sodium 10 Mg Tablet) 10 mg PO BEDTIME [facility] Last Admin: 10/12/21 22:50 Dose: 10 mg Documented by: Nicotine (Nicotine 21 Mg Patch.Td24) 21 mg TRANSDERMA DAILY PRN PRN Reason: smoking cessation Last Admin: 10/11/21 08:45 Dose: 21 mg Documented by: Nystatin (Nystatin Cream 15 Gm Tube) 1 appl TOPICAL BID [facility]; Protocol Last Admin: 10/13/21 10:00 Dose: 1 appl Documented by: Omeprazole (Omeprazole 20 Mg Capsule.) 20 mg PO BID@0630,1630 [facility] Last Admin: 10/13/21 17:10 Dose: 20 mg Documented by: Polyethylene Glycol (Polyethylene Glycol 3350 17 Gm Powd.Pack) 17 gm PO DAILY PRN PRN Reason: Constipation Last Admin: 10/08/21 09:45 Dose: 17 gm Documented by: Prazosin HCl (Prazosin Hcl 1 Mg Capsule) 3 mg PO BEDTIME [facility]; Protocol Last Admin: 10/12/21 22:48 Dose: 3 mg Documented by: Trazodone HCl (Trazodone Hcl 50 Mg Tablet) 150 mg PO BEDTIME [facility] Last Admin: 10/12/21 22:48 Dose: 150 mg Documented by: Verapamil HCl (Verapamil Hcl Sr 240 Mg Tablet.Er) 240 mg PO BEDTIME [facility]; Protocol Last Admin: 10/12/21 22:49 Dose: 240 mg Documented by: Allergies Allergies Allergy/AdvReac Type Severity Reaction Status Date / Time Fish Containing Products Allergy Severe ANAPHYLAXIS Verified 08/18/21 18:18 codeine [Codeine] Allergy Unknown RASH Verified 08/18/21 18:18 Penicillins Allergy Unknown RASH Verified 08/18/21 18:18 prednisone [Prednisone] Allergy Unknown RASH Verified 08/18/21 18:18 Sulfa (Sulfonamide Allergy Unknown RASH Verified 08/18/21 18:18 Antibiotics) [Sulfa (Sulfonamides)] azithromycin [AZITHROMYCIN] AdvReac Severe RASH Verified 08/18/21 18:18 nicotine AdvReac Unknown HEART Verified 08/18/21 18:18 PALPITATION TO NICOTINE GUM Seafood Allergy Severe ANAPHYLAXIS Uncoded 07/31/21 20:43 From Geodon Allergy Unknown DYSURIA, Uncoded 07/31/21 20:43 RASH Assessment & Plan Assessment & Plan (1) Depression: Qualifiers: Active/Remission status: currently active Depression Type: major depressive disorder Major depression episode severity: severe Major depression recurrence: recurrent Psychotic features: with psychotic features Qualified Code(s): F33.3 - Major depressive disorder, recurrent, severe with psychotic symptoms Status: Acute Code(s): F32.A - Depression, unspecified (2) Borderline personality disorder: Status: Chronic Code(s): F60.3 - Borderline personality disorder (3) PTSD (post-traumatic stress disorder): Status: Chronic Code(s): F43.10 - Post-traumatic stress disorder, unspecified (4) Suicidal ideation: Status: Resolved Code(s): R45.851 - Suicidal ideations Assessment and Plan: admit to unit, keep safe. 1:1 to prevent SIB. continue prior medications regimen. T/C vibra; contact hardik linares to review case. 10/11: Reports depressed mood, struggling with suicidal ideations, urges to self harm, has been on a 1:1 since admission. Reviewed med history, prozac recently decreased due to possible activation at 60 mg. She has PRN medications to target anxiety, klonopin and thorazine, which were recently increased. Pt denies past benefit on TMS and ECT. Has past trials on Risperdal, haldol, wellbutrin, celexa, cymbalta, abilify, seroquel XR, revia, trileptal, lithium. She reports lithium was helpful for SI but she was taken off it due to I got toxic. Reviewed CBC, CMP, pt is willing to retrial lithium ER at a low dose. Will start lithium ER 300 mg QHS, discontinue lisinopril 5 mg QAM due to drug interaction and will monitor BP, as pt already has other rate controlling medications on board. 10/12: No medication changes, will monitor lithium trial for benefit. 10/13: Will continue lithium trial for chronic SI, urges to self harm, mood stability, and depression. Will obtain lithium level. Discussed elevated BP with hospitalist, who recommended an increase in verapamil, as lisinopril was discontinued due to interaction with lithium. Monitor response to medications. Monitor for safety in the milieu. Discharge on stabilization. Patient seen. Chart reviewed. Discussed with team. Obtain collateral contact info?as needed I spent minutes with the patient and/or on the patient floor today, greater than?50% of which was spent counseling/coordinating care. Reason for contiued inpatient stay Substantial Risk for: harm to self, rapid decompensation and med/psych decompensation
[2021-10-13 22:14] VITALS: BP 143/92; PULSE 89
[2021-10-13] MEDS: traZODone HCL 50 MG TABLET 150 MG PO (22:14)
[2021-10-13] MEDS: Atorvastatin Calcium 10 MG TABLET PO (22:14)
[2021-10-13] MEDS: Prazosin HCL 1 MG CAPSULE 3 MG PO (22:14)
[2021-10-13] MEDS: Lithium Carbonate ER 300 MG TABLET.ER PO (22:14)
[2021-10-13] MEDS: Montelukast Sodium 10 MG TABLET PO (22:14)
[2021-10-13 22:15] VITALS: BP 143/92; PULSE 89
[2021-10-13] MEDS: VerapamiL HCL SR 120 MG TABLET.ER PO (22:15)
[2021-10-13] MEDS: VerapamiL HCL SR 180 MG TABLET.ER PO (22:15)
[2021-10-13 22:19] VITALS: TEMP 36.5; O2SAT 98
[2021-10-14 09:11] LABS: Glucose, Whole Blood 102 mg/dL (60-115)
[2021-10-14] MEDS: Omeprazole 20 MG CAPSULE.DR PO ×2 (09:14→16:54)
[2021-10-14] MEDS: chlorproMAZINE HCl 25 MG TABLET 50 MG PO ×4 (09:14→21:18)
[2021-10-14] MEDS: FLUoxetine HCl 20 MG CAPSULE 40 MG PO (09:14)
[2021-10-14] MEDS: Fluticasone Propionate 100 MCG BLST.W.DEV 2 PUFF INHALE ×2 (09:14→21:17)
[2021-10-14 09:15] VITALS: BP 111/71; PULSE 92; RESP 16; TEMP 36.7; O2SAT 94
[2021-10-14] MEDS: Ferrous Sulfate 324 MG TABLET.DR PO (09:15)
[2021-10-14] MEDS: cloNIDine HCL 0.1 MG TABLET PO ×2 (09:15→14:24)
[2021-10-14] MEDS: metFORMIN HCl 500 MG TABLET PO ×2 (09:18→21:18)
[2021-10-14] MEDS: Nystatin Cream 15 GM TUBE 1 APPL TOPICAL ×2 (09:19→21:17)
--- NOTE | 2021-10-14 13:18 | HO.PSYCHPN ---
Subjective Subjective Date of Service: 10/14/21 Reason For Visit: Depression, SI Subjective Notes: Conditional Voluntary Guardianship: No Interim History: Patient S case reviewed with nursing staff chart reviewed patient seen. Patient on one-to-one depressed flat intrusive hallucinations telling her to her hurt herself Medication Compliance: Yes Mental Status Exam Mental Status Exam Narrative: Patient seen in her room she is on one-to-one. Patient casually dressed flat anxious in appearance. Mood depressed constricted anxiety thoughts of self-harm hallucinations reportedly telling her to harm herself poverty of content impulse control adequate when seen denies active SI or HI Diagnostics Vital Signs (24Hr): Vital Signs - 24 hr 10/13/21 15:10 10/13/21 22:14 10/13/21 22:15 Temperature Pulse Rate 92 89 89 Respiratory Rate Blood Pressure 157/88 H 143/92 H 143/92 H Pulse Oximetry 10/13/21 22:19 10/14/21 09:15 Temperature 97.7 F 98.0 F Pulse Rate 92 Respiratory Rate 16 Blood Pressure 111/71 Pulse Oximetry 98 94 BMI result Body Mass Index 41.8 Labs Results: 10/06/21 08:08 10/11/21 08:27 Labs: Laboratory Results - last 48 hr 10/13/21 10/14/21 08:22 08:59 POC Glucose 112 102 Medications Medications Current Medications Acetaminophen (Acetaminophen 325 Mg Tablet) 650 mg PO Q6H PRN PRN Reason: Headache/Pain Mild Scale (1-3) Al Hydroxide/Mg Hydroxide (Magnesium Hydrox/Alum Hydrox 30 Ml Oral.Susp) 30 ml PO Q6H PRN PRN Reason: Heartburn/Nausea Last Admin: 10/11/21 22:59 Dose: 30 ml Documented by: Albuterol Sulfate (Albuterol Sulfate 90 Mcg 8 Gm Inhaler) 2 puff INHALE Q4H PRN PRN Reason: Shortness Of Breath Last Admin: 10/13/21 15:44 Dose: 2 puff Documented by: Atorvastatin Calcium (Atorvastatin Calcium 10 Mg Tablet) 10 mg PO BEDTIME [facility] Last Admin: 10/13/21 22:14 Dose: 10 mg Documented by: Benztropine Mesylate (Benztropine Mesylate 0.5 Mg Tablet) 0.5 mg PO BID PRN PRN Reason: EPS Chlorpromazine HCl (Chlorpromazine Hcl 25 Mg Tablet) 50 mg PO QID [facility] Last Admin: 10/14/21 09:14 Dose: 50 mg Documented by: Chlorpromazine HCl (Chlorpromazine Hcl 25 Mg Tablet) 75 mg PO Q4H PRN PRN Reason: agitation Last Admin: 10/13/21 20:24 Dose: 75 mg Documented by: Clonazepam (Clonazepam 0.5 Mg Tablet) 0.5 mg PO QID PRN PRN Reason: Anxiety Last Admin: 10/13/21 19:12 Dose: 0.5 mg Documented by: Clonidine HCl (Clonidine Hcl 0.1 Mg Tablet) 0.1 mg PO BID@0830,1430 [facility]; Protocol Last Admin: 10/14/21 09:15 Dose: 0.1 mg Documented by: Ferrous Sulfate (Ferrous Sulfate 324 Mg Tablet.Dr) 324 mg PO DAILY [facility] Last Admin: 10/14/21 09:15 Dose: 324 mg Documented by: Fluoxetine HCl (Fluoxetine Hcl 20 Mg Capsule) 40 mg PO DAILY [facility] Last Admin: 10/14/21 09:14 Dose: 40 mg Documented by: Fluticasone Propionate (Fluticasone Propionate 100 Mcg Blst.W.Dev) 2 puff INHALE RBID [facility] Last Admin: 10/14/21 09:14 Dose: 2 puff Documented by: Hydroxyzine HCl (Hydroxyzine Hcl 50 Mg Tablet) 50 mg PO QID PRN PRN Reason: Anxiety Last Admin: 10/09/21 14:55 Dose: 50 mg Documented by: [place] Carbonate ([place] Carbonate Er 300 Mg Tablet.Er) 300 mg PO BEDTIME [facility] Last Admin: 10/13/21 22:14 Dose: 300 mg Documented by: Magnesium Hydroxide (Milk Of Magnesia 30 Ml Oral.Susp) 30 ml PO DAILY PRN PRN Reason: Constipation Metformin HCl (Metformin Hcl 500 Mg Tablet) 500 mg PO BID [facility] Last Admin: 10/14/21 09:18 Dose: 500 mg Documented by: Montelukast Sodium (Montelukast Sodium 10 Mg Tablet) 10 mg PO BEDTIME [facility] Last Admin: 10/13/21 22:14 Dose: 10 mg Documented by: Nicotine (Nicotine 21 Mg Patch.Td24) 21 mg TRANSDERMA DAILY PRN PRN Reason: smoking cessation Last Admin: 10/11/21 08:45 Dose: 21 mg Documented by: Nystatin (Nystatin Cream 15 Gm Tube) 1 appl TOPICAL BID [facility]; Protocol Last Admin: 10/14/21 09:19 Dose: 1 appl Documented by: Omeprazole (Omeprazole 20 Mg Capsule.Dr) 20 mg PO BID@0630,1630 [facility] Last Admin: 10/14/21 09:14 Dose: 20 mg Documented by: Polyethylene Glycol (Polyethylene Glycol 3350 17 Gm Powd.Pack) 17 gm PO DAILY PRN PRN Reason: Constipation Last Admin: 10/08/21 09:45 Dose: 17 gm Documented by: Prazosin HCl (Prazosin Hcl 1 Mg Capsule) 3 mg PO BEDTIME [facility]; Protocol Last Admin: 10/13/21 22:14 Dose: 3 mg Documented by: Trazodone HCl (Trazodone Hcl 50 Mg Tablet) 150 mg PO BEDTIME [facility] Last Admin: 10/13/21 22:14 Dose: 150 mg Documented by: Verapamil HCl (Verapamil Hcl Sr 120 Mg Tablet.Er) 120 mg PO BEDTIME [facility]; Protocol Last Admin: 10/13/21 22:15 Dose: 120 mg Documented by: Verapamil HCl (Verapamil Hcl Sr 180 Mg Tablet.Er) 180 mg PO BEDTIME [facility]; Protocol Last Admin: 10/13/21 22:15 Dose: 180 mg Documented by: Allergies Allergies Allergy/AdvReac Type Severity Reaction Status Date / Time Fish Containing Products Allergy Severe ANAPHYLAXIS Verified 08/18/21 18:18 codeine [Codeine] Allergy Unknown RASH Verified 08/18/21 18:18 Penicillins Allergy Unknown RASH Verified 08/18/21 18:18 prednisone [Prednisone] Allergy Unknown RASH Verified 08/18/21 18:18 Sulfa (Sulfonamide Allergy Unknown RASH Verified 08/18/21 18:18 Antibiotics) [Sulfa (Sulfonamides)] azithromycin [AZITHROMYCIN] AdvReac Severe RASH Verified 08/18/21 18:18 nicotine AdvReac Unknown HEART Verified 08/18/21 18:18 PALPITATION TO NICOTINE GUM Seafood Allergy Severe ANAPHYLAXIS Uncoded 07/31/21 20:43 From Geodon Allergy Unknown DYSURIA, Uncoded 07/31/21 20:43 RASH Assessment & Plan Assessment & Plan (1) Depression: Qualifiers: Active/Remission status: currently active Depression Type: major depressive disorder Major depression episode severity: severe Major depression recurrence: recurrent Psychotic features: with psychotic features Qualified Code(s): F33.3 - Major depressive disorder, recurrent, severe with psychotic symptoms Status: Acute Code(s): F32.A - Depression, unspecified (2) Borderline personality disorder: Status: Chronic Code(s): F60.3 - Borderline personality disorder (3) PTSD (post-traumatic stress disorder): Status: Chronic Code(s): F43.10 - Post-traumatic stress disorder, unspecified (4) Suicidal ideation: Status: Resolved Code(s): R45.851 - Suicidal ideations Assessment and Plan: admit to unit, keep safe. 1:1 to prevent SIB. continue prior medications regimen. T/C vibra; contact hardik linares to review case. 10/11: Reports depressed mood, struggling with suicidal ideations, urges to self harm, has been on a 1:1 since admission. Reviewed med history, prozac recently decreased due to possible activation at 60 mg. She has PRN medications to target anxiety, klonopin and thorazine, which were recently increased. Pt denies past benefit on TMS and ECT. Has past trials on Risperdal, haldol, wellbutrin, celexa, cymbalta, abilify, seroquel XR, revia, trileptal, lithium. She reports lithium was helpful for SI but she was taken off it due to I got toxic. Reviewed CBC, CMP, pt is willing to retrial lithium ER at a low dose. Will start lithium ER 300 mg QHS, discontinue lisinopril 5 mg QAM due to drug interaction and will monitor BP, as pt already has other rate controlling medications on board. 10/12: No medication changes, will monitor lithium trial for benefit. 10/13: Will continue lithium trial for chronic SI, urges to self harm, mood stability, and depression. Will obtain lithium level. Discussed elevated BP with hospitalist, who recommended an increase in verapamil, as lisinopril was discontinued due to interaction with lithium. [id number] Patient seen chart reviewed patient reviewed treatment team. Try and taper gradually off one-to-one. Patient with chronic dissociation and internalized voices discussed strategies to take more responsibility for behavior. Patient does not appear psychotic encourage coping skill strategies continue medication I spent minutes with the patient and/or on the patient floor today, greater than?50% of which was spent counseling/coordinating care. Reason for contiued inpatient stay Substantial Risk for: harm to self and rapid decompensation
[2021-10-14 14:24] VITALS: BP 144/71; PULSE 86
[2021-10-14 21:15] VITALS: BP 137/97; PULSE 94; TEMP 36.3; O2SAT 97
[2021-10-14 21:17] VITALS: BP 134/97; PULSE 94
[2021-10-14] MEDS: Prazosin HCL 1 MG CAPSULE 3 MG PO (21:17)
[2021-10-14] MEDS: Montelukast Sodium 10 MG TABLET PO (21:18)
[2021-10-14] MEDS: Lithium Carbonate ER 300 MG TABLET.ER PO (21:18)
[2021-10-14] MEDS: traZODone HCL 50 MG TABLET 150 MG PO (21:18)
[2021-10-14] MEDS: Atorvastatin Calcium 10 MG TABLET PO (21:19)
[2021-10-14] MEDS: clonazePAM 0.5 MG TABLET PO (21:19)
[2021-10-14 21:20] VITALS: BP 137/97; PULSE 94
[2021-10-14] MEDS: VerapamiL HCL SR 120 MG TABLET.ER PO (21:20)
[2021-10-14] MEDS: VerapamiL HCL SR 180 MG TABLET.ER PO (21:20)
[2021-10-15] MEDS: hydrOXYzine HCL 50 MG TABLET PO ×2 (01:42→21:54)
[2021-10-15] MEDS: chlorproMAZINE HCl 25 MG TABLET 75 MG PO ×3 (01:42→15:50)
[2021-10-15 08:31] VITALS: BP 130/68; PULSE 74; RESP 16; TEMP 36.8; O2SAT 99
[2021-10-15] MEDS: FLUoxetine HCl 20 MG CAPSULE 40 MG PO (08:39)
[2021-10-15] MEDS: Fluticasone Propionate 100 MCG BLST.W.DEV 2 PUFF INHALE ×2 (08:39→22:17)
[2021-10-15] MEDS: metFORMIN HCl 500 MG TABLET PO ×2 (08:39→21:55)
[2021-10-15] MEDS: Ferrous Sulfate 324 MG TABLET.DR PO (08:39)
[2021-10-15] MEDS: chlorproMAZINE HCl 25 MG TABLET 50 MG PO ×4 (08:39→21:52)
[2021-10-15 08:40] VITALS: BP 130/68; PULSE 74
[2021-10-15] MEDS: Omeprazole 20 MG CAPSULE.DR PO ×2 (08:40→17:24)
[2021-10-15] MEDS: cloNIDine HCL 0.1 MG TABLET PO ×2 (08:40→13:40)
--- NOTE | 2021-10-15 13:20 | HO.PSYCHPN ---
Subjective Subjective Date of Service: 10/15/21 Reason For Visit: Depression, SI Subjective Notes: Conditional Voluntary Interim History: Patient quite depressed constricted hopeless helpless despondent self-harming impulses thought she would be better off case reviewed with nursing staff chart reviewed patient seen Medication Compliance: Yes Mental Status Exam Mental Status Exam Patient Appearance: Appropriate Patient Orientation: Person, Place, Time and Situation Level of Consciousness: Awake Mood Description: Withdrawn, Depressed and Flat Affect Description: Constricted, Depressed, Anxious and Flat Memory Description: Intact Hallucinations: Auditory Thought Content: positive for Suicidal Ideation (Denies active plan) and negative for Homicidal Ideation Depressive Symptoms: Increased Anxiety Judgement: Fair Diagnostics Vital Signs (24Hr): Vital Signs - 24 hr 10/14/21 14:24 10/14/21 21:15 10/14/21 21:17 Temperature 97.4 F Pulse Rate 86 94 94 Respiratory Rate Blood Pressure 144/71 H 137/97 H 134/97 H Pulse Oximetry 97 10/14/21 21:20 10/15/21 08:31 10/15/21 08:40 Temperature 98.2 F Pulse Rate 94 74 74 Respiratory Rate 16 Blood Pressure 137/97 H 130/68 130/68 Pulse Oximetry 99 BMI result Body Mass Index 41.8 Labs Results: 10/06/21 08:08 10/11/21 08:27 Labs: Laboratory Results - last 48 hr 10/14/21 08:59 POC Glucose 102 Medications Medications Current Medications Acetaminophen (Acetaminophen 325 Mg Tablet) 650 mg PO Q6H PRN PRN Reason: Headache/Pain Mild Scale (1-3) Al Hydroxide/Mg Hydroxide (Magnesium Hydrox/Alum Hydrox 30 Ml Oral.Susp) 30 ml PO Q6H PRN PRN Reason: Heartburn/Nausea Last Admin: 10/11/21 22:59 Dose: 30 ml Documented by: Albuterol Sulfate (Albuterol Sulfate 90 Mcg 8 Gm Inhaler) 2 puff INHALE Q4H PRN PRN Reason: Shortness Of Breath Last Admin: 10/13/21 15:44 Dose: 2 puff Documented by: Atorvastatin Calcium (Atorvastatin Calcium 10 Mg Tablet) 10 mg PO BEDTIME YULY Last Admin: 10/14/21 21:19 Dose: 10 mg Documented by: Benztropine Mesylate (Benztropine Mesylate 0.5 Mg Tablet) 0.5 mg PO BID PRN PRN Reason: EPS Chlorpromazine HCl (Chlorpromazine Hcl 25 Mg Tablet) 50 mg PO QID FORMERLY [facility], [facility] Last Admin: 10/15/21 08:39 Dose: 50 mg Documented by: Chlorpromazine HCl (Chlorpromazine Hcl 25 Mg Tablet) 75 mg PO Q4H PRN PRN Reason: agitation Last Admin: 10/15/21 11:38 Dose: 75 mg Documented by: Clonidine HCl (Clonidine Hcl 0.1 Mg Tablet) 0.1 mg PO BID@0830,1430 [facility], [facility]; Protocol Last Admin: 10/15/21 08:40 Dose: 0.1 mg Documented by: Ferrous Sulfate (Ferrous Sulfate 324 Mg Tablet.Dr) 324 mg PO DAILY [facility], [facility]1983 Last Admin: 10/15/21 08:39 Dose: 324 mg Documented by: Fluoxetine HCl (Fluoxetine Hcl 20 Mg Capsule) 40 mg PO DAILY [facility], [facility] Last Admin: 10/15/21 08:39 Dose: 40 mg Documented by: Fluticasone Propionate (Fluticasone Propionate 100 Mcg Blst.W.Dev) 2 puff INHALE RBID [facility], [facility]1983 Last Admin: 10/15/21 08:39 Dose: 2 puff Documented by: Hydroxyzine HCl (Hydroxyzine Hcl 50 Mg Tablet) 50 mg PO QID PRN PRN Reason: Anxiety Last Admin: 10/15/21 01:42 Dose: 50 mg Documented by: [place] Carbonate ([place] Carbonate Er 300 Mg Tablet.Er) 300 mg PO BEDTIME [facility], [facility] Last Admin: 10/14/21 21:18 Dose: 300 mg Documented by: Magnesium Hydroxide (Milk Of Magnesia 30 Ml Oral.Susp) 30 ml PO DAILY PRN PRN Reason: Constipation Metformin HCl (Metformin Hcl 500 Mg Tablet) 500 mg PO BID [facility], [facility] Last Admin: 10/15/21 08:39 Dose: 500 mg Documented by: Mirtazapine (Mirtazapine 7.5 Mg Tablet) 7.5 mg PO BEDTIME MRX1 [facility], [facility]1983 Montelukast Sodium (Montelukast Sodium 10 Mg Tablet) 10 mg PO BEDTIME [facility], [facility] Last Admin: 10/14/21 21:18 Dose: 10 mg Documented by: Nicotine (Nicotine 21 Mg Patch.Td24) 21 mg TRANSDERMA DAILY PRN PRN Reason: smoking cessation Last Admin: 10/11/21 08:45 Dose: 21 mg Documented by: Nystatin (Nystatin Cream 15 Gm Tube) 1 appl TOPICAL BID YULY; Protocol Last Admin: 10/15/21 11:52 Dose: Not Given Documented by: Omeprazole (Omeprazole 20 Mg Capsule.Dr) 20 mg PO BID@0630,1630 [facility], [facility] Last Admin: 10/15/21 08:40 Dose: 20 mg Documented by: Polyethylene Glycol (Polyethylene Glycol 3350 17 Gm Powd.Pack) 17 gm PO DAILY PRN PRN Reason: Constipation Last Admin: 10/08/21 09:45 Dose: 17 gm Documented by: Prazosin HCl (Prazosin Hcl 1 Mg Capsule) 3 mg PO BEDTIME YULY; Protocol Last Admin: 10/14/21 21:17 Dose: 3 mg Documented by: Trazodone HCl (Trazodone Hcl 100 Mg Tablet) 100 mg PO BEDTIME PRN PRN Reason: Anxiety Verapamil HCl (Verapamil Hcl Sr 120 Mg Tablet.Er) 120 mg PO BEDTIME YULY; Protocol Last Admin: 10/14/21 21:20 Dose: 120 mg Documented by: Verapamil HCl (Verapamil Hcl Sr 180 Mg Tablet.Er) 180 mg PO BEDTIME YULY; Protocol Last Admin: 10/14/21 21:20 Dose: 180 mg Documented by: Allergies Allergies Allergy/AdvReac Type Severity Reaction Status Date / Time Fish Containing Products Allergy Severe ANAPHYLAXIS Verified 08/18/21 18:18 codeine [Codeine] Allergy Unknown RASH Verified 08/18/21 18:18 Penicillins Allergy Unknown RASH Verified 08/18/21 18:18 prednisone [Prednisone] Allergy Unknown RASH Verified 08/18/21 18:18 Sulfa (Sulfonamide Allergy Unknown RASH Verified 08/18/21 18:18 Antibiotics) [Sulfa (Sulfonamides)] azithromycin [AZITHROMYCIN] AdvReac Severe RASH Verified 08/18/21 18:18 nicotine AdvReac Unknown HEART Verified 08/18/21 18:18 PALPITATION TO NICOTINE GUM Seafood Allergy Severe ANAPHYLAXIS Uncoded 07/31/21 20:43 From [place] Allergy Unknown DYSURIA, Uncoded 07/31/21 20:43 RASH Assessment & Plan Assessment & Plan (1) Depression: Qualifiers: Active/Remission status: currently active Depression Type: major depressive disorder Major depression episode severity: severe Major depression recurrence: recurrent Psychotic features: with psychotic features Qualified Code(s): F33.3 - Major depressive disorder, recurrent, severe with psychotic symptoms Status: Acute Code(s): F32.A - Depression, unspecified (2) Borderline personality disorder: Status: Chronic Code(s): F60.3 - Borderline personality disorder (3) PTSD (post-traumatic stress disorder): Status: Chronic Code(s): F43.10 - Post-traumatic stress disorder, unspecified (4) Suicidal ideation: Status: Resolved Code(s): R45.851 - Suicidal ideations Assessment and Plan: admit to unit, keep safe. 1:1 to prevent SIB. continue prior medications regimen. T/C vibra; contact hardik linares to review case. 10/11: Reports depressed mood, struggling with suicidal ideations, urges to self harm, has been on a 1:1 since admission. Reviewed med history, prozac recently decreased due to possible activation at 60 mg. She has PRN medications to target anxiety, klonopin and thorazine, which were recently increased. Pt denies past benefit on TMS and ECT. Has past trials on Risperdal, haldol, wellbutrin, celexa, cymbalta, abilify, seroquel XR, revia, trileptal, lithium. She reports lithium was helpful for SI but she was taken off it due to I got toxic. Reviewed CBC, CMP, pt is willing to retrial lithium ER at a low dose. Will start lithium ER 300 mg QHS, discontinue lisinopril 5 mg QAM due to drug interaction and will monitor BP, as pt already has other rate controlling medications on board. 10/12: No medication changes, will monitor lithium trial for benefit. 10/13: Will continue lithium trial for chronic SI, urges to self harm, mood stability, and depression. Will obtain lithium level. Discussed elevated BP with hospitalist, who recommended an increase in verapamil, as lisinopril was discontinued due to interaction with lithium. [id number] Patient seen chart reviewed patient reviewed treatment team. Try and taper gradually off one-to-one. Patient with chronic dissociation and internalized voices discussed strategies to take more responsibility for behavior. Patient does not appear psychotic encourage coping skill strategies continue medication 10/15/2021 Patient seen chart reviewed case reviewed treatment team nursing. Patient remains quite depressed start mirtazapine consider cytomel monitor safety I spent minutes with the patient and/or on the patient floor today, greater than?50% of which was spent counseling/coordinating care. Reason for contiued inpatient stay Substantial Risk for: harm to self
[2021-10-15 13:36] LABS: Glucose, Whole Blood 99 mg/dL (60-115)
[2021-10-15 13:40] VITALS: BP 115/75; PULSE 86
[2021-10-15] MEDS: clonazePAM 0.5 MG TABLET PO (19:58)
[2021-10-15 21:53] VITALS: BP 140/74; PULSE 111
[2021-10-15] MEDS: Prazosin HCL 1 MG CAPSULE 3 MG PO (21:53)
[2021-10-15 21:54] VITALS: BP 140/74; PULSE 111
[2021-10-15] MEDS: VerapamiL HCL SR 120 MG TABLET.ER PO (21:54)
[2021-10-15] MEDS: VerapamiL HCL SR 180 MG TABLET.ER PO (21:54)
[2021-10-15] MEDS: Lithium Carbonate ER 300 MG TABLET.ER PO (21:55)
[2021-10-15] MEDS: Atorvastatin Calcium 10 MG TABLET PO (21:55)
[2021-10-15] MEDS: Mirtazapine 7.5 MG TABLET PO (21:55)
[2021-10-15] MEDS: Montelukast Sodium 10 MG TABLET PO (21:55)
[2021-10-15 21:56] VITALS: BP 140/74; PULSE 111; TEMP 36.7; O2SAT 96
[2021-10-16] MEDS: Nystatin Cream 15 GM TUBE 1 APPL TOPICAL ×2 (01:13→21:35)
[2021-10-16] MEDS: Mirtazapine 7.5 MG TABLET PO ×3 (02:13→22:00)
[2021-10-16] MEDS: chlorproMAZINE HCl 25 MG TABLET 75 MG PO (02:14)
[2021-10-16] MEDS: Omeprazole 20 MG CAPSULE.DR PO ×2 (06:59→16:02)
[2021-10-16 08:18] LABS: Glucose, Whole Blood 100 mg/dL (60-115)
[2021-10-16 08:19] VITALS: BP 133/71; PULSE 76; RESP 20; TEMP 36.4; O2SAT 95
[2021-10-16 08:34] LABS: Lithium 0.19 mmol/L (0.60-1.20)
[2021-10-16 08:57] VITALS: BP 133/71; PULSE 76
[2021-10-16] MEDS: FLUoxetine HCl 20 MG CAPSULE 40 MG PO (08:57)
[2021-10-16] MEDS: cloNIDine HCL 0.1 MG TABLET PO ×2 (08:57→12:49)
[2021-10-16] MEDS: chlorproMAZINE HCl 25 MG TABLET 50 MG PO ×4 (08:57→21:36)
[2021-10-16] MEDS: metFORMIN HCl 500 MG TABLET PO ×2 (08:57→21:35)
[2021-10-16] MEDS: Ferrous Sulfate 324 MG TABLET.DR PO (08:57)
[2021-10-16] MEDS: Fluticasone Propionate 100 MCG BLST.W.DEV 2 PUFF INHALE ×2 (08:58→21:35)
[2021-10-16 12:49] VITALS: BP 133/71; PULSE 76
[2021-10-16 17:31] LABS: Appearance Urine CLEAR; Color Urine YELLOW; Glucose Urine UA NEG (NEG); Leukocyte Esterase Urine 1+ (NEG); Nitrite Urine NEG (NEG); Specific Gravity - Urine <= 1.005 (1.005-1.025); Urine Blood NEG (NEG); Urine Ketones NEG (NEG); Urine Protein NEG (NEG-TRACE)
[2021-10-16 17:44] LABS: Bacteria Urine 2+ /LPF; Mucus Urine TRACE /LPF; RBC Urine 0-2 /HPF (0); Squamous Epithelial Cell Urine TRACE /LPF
[2021-10-16 18:00] VITALS: BP 129/78; PULSE 82; RESP 17; TEMP 36.8; O2SAT 98
[2021-10-16] MEDS: clonazePAM 0.5 MG TABLET PO (20:07)
[2021-10-16] MEDS: Montelukast Sodium 10 MG TABLET PO (21:35)
[2021-10-16] MEDS: Lithium Carbonate ER 300 MG TABLET.ER PO (21:35)
[2021-10-16 21:36] VITALS: BP 140/82; PULSE 69
[2021-10-16] MEDS: Prazosin HCL 1 MG CAPSULE 3 MG PO (21:36)
[2021-10-16] MEDS: Atorvastatin Calcium 10 MG TABLET PO (21:36)
[2021-10-16 21:39] VITALS: BP 140/82; PULSE 69
[2021-10-16] MEDS: VerapamiL HCL SR 120 MG TABLET.ER PO (21:39)
[2021-10-16] MEDS: VerapamiL HCL SR 180 MG TABLET.ER PO (21:39)
--- NOTE | 2021-10-16 22:48 | HO.PSYCHPN ---
Subjective Subjective Date of Service: 10/16/21 Reason For Visit: Depression, SI Subjective Notes: Conditional Voluntary Interim History: The patient remains severely depressed withdrawn has been safe off to 1 on the overnight shift internally preoccupied limited coping Medication Compliance: Yes Mental Status Exam Mental Status Exam Patient Appearance: Appropriate Patient Orientation: Person, Place, Time and Situation Level of Consciousness: Awake Mood Description: Withdrawn, Depressed and Flat Affect Description: Constricted, Depressed, Anxious and Flat Memory Description: Intact Hallucinations: Auditory Thought Content: positive for Suicidal Ideation (Denies active plan) and negative for Homicidal Ideation Depressive Symptoms: Increased Anxiety Judgement: Fair Diagnostics Vital Signs (24Hr): Vital Signs - 24 hr 10/16/21 08:19 10/16/21 08:57 10/16/21 12:49 Temperature 97.6 F Pulse Rate 76 76 76 Respiratory Rate 20 Blood Pressure 133/71 133/71 133/71 Pulse Oximetry 95 10/16/21 18:00 10/16/21 21:36 10/16/21 21:39 Temperature 98.3 F Pulse Rate 82 69 69 Respiratory Rate 17 Blood Pressure 129/78 140/82 H 140/82 H Pulse Oximetry 98 BMI result Body Mass Index 41.8 Labs Results: 10/06/21 08:08 10/11/21 08:27 Labs: Laboratory Results - last 48 hr 10/15/21 10/16/21 10/16/21 08:11 08:04 08:14 POC Glucose 99 100 Urine Color Urine Appearance Urine pH Ur Specific [place] Urine Protein Urine Glucose (UA) Urine Ketones Urine Blood Urine Nitrite Ur Leukocyte Esterase Urine RBC Urine WBC Ur Squamous Epith Cells Urine Bacteria Urine Mucus [place] 0.19 L 10/16/21 17:10 POC Glucose Urine Color YELLOW Urine Appearance CLEAR Urine pH 6.0 Ur Specific [place] <= 1.005 Urine Protein NEG Urine Glucose (UA) NEG Urine Ketones NEG Urine Blood NEG Urine Nitrite NEG Ur Leukocyte Esterase 1+ H Urine RBC 0-2 Urine WBC 5-9 H Ur Squamous Epith Cells TRACE Urine Bacteria 2+ Urine Mucus TRACE [place] Medications Medications Current Medications Acetaminophen (Acetaminophen 325 Mg Tablet) 650 mg PO Q6H PRN PRN Reason: Headache/Pain Mild Scale (1-3) Al Hydroxide/Mg Hydroxide (Magnesium Hydrox/Alum Hydrox 30 Ml Oral.Susp) 30 ml PO Q6H PRN PRN Reason: Heartburn/Nausea Last Admin: 10/11/21 22:59 Dose: 30 ml Documented by: Albuterol Sulfate (Albuterol Sulfate 90 Mcg 8 Gm Inhaler) 2 puff INHALE Q4H PRN PRN Reason: Shortness Of Breath Last Admin: 10/13/21 15:44 Dose: 2 puff Documented by: Atorvastatin Calcium (Atorvastatin Calcium 10 Mg Tablet) 10 mg PO BEDTIME [facility] Last Admin: 10/16/21 21:36 Dose: 10 mg Documented by: Benztropine Mesylate (Benztropine Mesylate 0.5 Mg Tablet) 0.5 mg PO BID PRN PRN Reason: EPS Chlorpromazine HCl (Chlorpromazine Hcl 25 Mg Tablet) 50 mg PO QID [facility] Last Admin: 10/16/21 21:36 Dose: 50 mg Documented by: Chlorpromazine HCl (Chlorpromazine Hcl 25 Mg Tablet) 75 mg PO Q4H PRN PRN Reason: agitation Last Admin: 10/16/21 02:14 Dose: 75 mg Documented by: Clonazepam (Clonazepam 0.5 Mg Tablet) 0.5 mg PO QID PRN PRN Reason: Anxiety Last Admin: 10/16/21 20:07 Dose: 0.5 mg Documented by: Clonidine HCl (Clonidine Hcl 0.1 Mg Tablet) 0.1 mg PO BID@0830,1430 [facility]; Protocol Last Admin: 10/16/21 12:49 Dose: 0.1 mg Documented by: Ferrous Sulfate (Ferrous Sulfate 324 Mg Tablet.Dr) 324 mg PO DAILY [facility] Last Admin: 10/16/21 08:57 Dose: 324 mg Documented by: Fluoxetine HCl (Fluoxetine Hcl 20 Mg Capsule) 40 mg PO DAILY [facility] Last Admin: 10/16/21 08:57 Dose: 40 mg Documented by: Fluticasone Propionate (Fluticasone Propionate 100 Mcg Blst.W.Dev) 2 puff INHALE RBID [facility] Last Admin: 10/16/21 21:35 Dose: 2 puff Documented by: Hydroxyzine HCl (Hydroxyzine Hcl 50 Mg Tablet) 50 mg PO QID PRN PRN Reason: Anxiety Last Admin: 10/15/21 21:54 Dose: 50 mg Documented by: [place] Carbonate ([place] Carbonate Er 300 Mg Tablet.Er) 300 mg PO BEDTIME [facility] Last Admin: 10/16/21 21:35 Dose: 300 mg Documented by: Magnesium Hydroxide (Milk Of Magnesia 30 Ml Oral.Susp) 30 ml PO DAILY PRN PRN Reason: Constipation Metformin HCl (Metformin Hcl 500 Mg Tablet) 500 mg PO BID [facility] Last Admin: 10/16/21 21:35 Dose: 500 mg Documented by: Mirtazapine (Mirtazapine 7.5 Mg Tablet) 7.5 mg PO BEDTIME MRX1 [facility] Last Admin: 10/16/21 22:00 Dose: 7.5 mg Documented by: Montelukast Sodium (Montelukast Sodium 10 Mg Tablet) 10 mg PO BEDTIME YULY Last Admin: 10/16/21 21:35 Dose: 10 mg Documented by: Nicotine (Nicotine 21 Mg Patch.Td24) 21 mg TRANSDERMA DAILY PRN PRN Reason: smoking cessation Last Admin: 10/11/21 08:45 Dose: 21 mg Documented by: Nystatin (Nystatin Cream 15 Gm Tube) 1 appl TOPICAL BID [facility]; Protocol Last Admin: 10/16/21 21:35 Dose: 1 appl Documented by: Omeprazole (Omeprazole 20 Mg Capsule.Dr) 20 mg PO BID@0630,1630 [facility] Last Admin: 10/16/21 16:02 Dose: 20 mg Documented by: Polyethylene Glycol (Polyethylene Glycol 3350 17 Gm Powd.Pack) 17 gm PO DAILY PRN PRN Reason: Constipation Last Admin: 10/08/21 09:45 Dose: 17 gm Documented by: Prazosin HCl (Prazosin Hcl 1 Mg Capsule) 3 mg PO BEDTIME YULY; Protocol Last Admin: 10/16/21 21:36 Dose: 3 mg Documented by: Trazodone HCl (Trazodone Hcl 100 Mg Tablet) 100 mg PO BEDTIME PRN PRN Reason: Anxiety Verapamil HCl (Verapamil Hcl Sr 120 Mg Tablet.Er) 120 mg PO BEDTIME YULY; Protocol Last Admin: 10/16/21 21:39 Dose: 120 mg Documented by: Verapamil HCl (Verapamil Hcl Sr 180 Mg Tablet.Er) 180 mg PO BEDTIME [facility]; Protocol Last Admin: 10/16/21 21:39 Dose: 180 mg Documented by: Allergies Allergies Allergy/AdvReac Type Severity Reaction Status Date / Time Fish Containing Products Allergy Severe ANAPHYLAXIS Verified 08/18/21 18:18 codeine [Codeine] Allergy Unknown RASH Verified 08/18/21 18:18 Penicillins Allergy Unknown RASH Verified 08/18/21 18:18 prednisone [Prednisone] Allergy Unknown RASH Verified 08/18/21 18:18 Sulfa (Sulfonamide Allergy Unknown RASH Verified 08/18/21 18:18 Antibiotics) [Sulfa (Sulfonamides)] azithromycin [AZITHROMYCIN] AdvReac Severe RASH Verified 08/18/21 18:18 nicotine AdvReac Unknown HEART Verified 08/18/21 18:18 PALPITATION TO NICOTINE GUM Seafood Allergy Severe ANAPHYLAXIS Uncoded 07/31/21 20:43 From [place] Allergy Unknown DYSURIA, Uncoded 07/31/21 20:43 RASH Assessment & Plan Assessment & Plan (1) Depression: Qualifiers: Active/Remission status: currently active Depression Type: major depressive disorder Major depression episode severity: severe Major depression recurrence: recurrent Psychotic features: with psychotic features Qualified Code(s): F33.3 - Major depressive disorder, recurrent, severe with psychotic symptoms Status: Acute Code(s): F32.A - Depression, unspecified (2) Borderline personality disorder: Status: Chronic Code(s): F60.3 - Borderline personality disorder (3) PTSD (post-traumatic stress disorder): Status: Chronic Code(s): F43.10 - Post-traumatic stress disorder, unspecified (4) Suicidal ideation: Status: Resolved Code(s): R45.851 - Suicidal ideations Assessment and Plan: admit to unit, keep safe. 1:1 to prevent SIB. continue prior medications regimen. T/C vibra; contact hardik linares to review case. 10/11: Reports depressed mood, struggling with suicidal ideations, urges to self harm, has been on a 1:1 since admission. Reviewed med history, prozac recently decreased due to possible activation at 60 mg. She has PRN medications to target anxiety, klonopin and thorazine, which were recently increased. Pt denies past benefit on TMS and ECT. Has past trials on Risperdal, haldol, wellbutrin, celexa, cymbalta, abilify, seroquel XR, revia, trileptal, lithium. She reports lithium was helpful for SI but she was taken off it due to I got toxic. Reviewed CBC, CMP, pt is willing to retrial lithium ER at a low dose. Will start lithium ER 300 mg QHS, discontinue lisinopril 5 mg QAM due to drug interaction and will monitor BP, as pt already has other rate controlling medications on board. 10/12: No medication changes, will monitor lithium trial for benefit. 10/13: Will continue lithium trial for chronic SI, urges to self harm, mood stability, and depression. Will obtain lithium level. Discussed elevated BP with hospitalist, who recommended an increase in verapamil, as lisinopril was discontinued due to interaction with lithium. [id number] Patient seen chart reviewed patient reviewed treatment team. Try and taper gradually off one-to-one. Patient with chronic dissociation and internalized voices discussed strategies to take more responsibility for behavior. Patient does not appear psychotic encourage coping skill strategies continue medication 10/15/2021 Patient seen chart reviewed case reviewed treatment team nursing. Patient remains quite depressed start mirtazapine consider cytomel monitor safety Patient remains guarded internally preoccupied flat and donning severely depressed hopeless helpless. Mirtazapine some seem somewhat helpful last night. Unfortunately generally patient has not been able to engage in DBT strategies does try to use behavioral activation and distraction I spent minutes with the patient and/or on the patient floor today, greater than?50% of which was spent counseling/coordinating care. Reason for contiued inpatient stay Substantial Risk for: harm to self and rapid decompensation
[2021-10-17] MEDS: traZODone HCL 100 MG TABLET PO (02:01)
[2021-10-17] MEDS: hydrOXYzine HCL 50 MG TABLET PO (02:01)
[2021-10-17] MEDS: chlorproMAZINE HCl 25 MG TABLET 75 MG PO (02:01)
[2021-10-17 06:00] VITALS: BP 116/78; PULSE 86; RESP 18; TEMP 36.2; O2SAT 97
[2021-10-17] MEDS: Omeprazole 20 MG CAPSULE.DR PO ×2 (06:55→16:44)
[2021-10-17 09:07] VITALS: BP 121/70; PULSE 74
[2021-10-17] MEDS: chlorproMAZINE HCl 25 MG TABLET 50 MG PO ×4 (09:07→22:09)
[2021-10-17] MEDS: cloNIDine HCL 0.1 MG TABLET PO ×2 (09:07→14:26)
[2021-10-17] MEDS: Ferrous Sulfate 324 MG TABLET.DR PO (09:07)
[2021-10-17] MEDS: FLUoxetine HCl 20 MG CAPSULE 40 MG PO (09:07)
[2021-10-17] MEDS: clonazePAM 0.5 MG TABLET PO ×2 (09:07→19:49)
[2021-10-17] MEDS: Fluticasone Propionate 100 MCG BLST.W.DEV 2 PUFF INHALE ×2 (09:08→22:07)
[2021-10-17] MEDS: Albuterol Sulfate 90 MCG 8 GM INHALER 2 PUFF INHALE (09:08)
[2021-10-17] MEDS: metFORMIN HCl 500 MG TABLET PO ×2 (09:08→22:09)
[2021-10-17 10:53] LABS: Glucose, Whole Blood 161 mg/dL (60-115)
--- NOTE | 2021-10-17 16:39 | HO.PSYCHPN ---
Subjective Subjective Date of Service: 10/17/21 Reason For Visit: Depression, SI Subjective Notes: Conditional Voluntary Interim History: The nursing staff reported that yesterday had ideas of self-harm in and she reported a sporadic auditory hallucinations compelling her to hurt herself. On interview, the patient was on distress, she reports auditory hallucinations telling her to hurt herself but she was able to contract for safety. We discussed risks, benefits, side-effects and alternatives and she agreed increase lithium up to 450 mg a day since her last lithium level was 0.18 at 300 mg at a Mental Status Exam Mental Status Exam Patient Appearance: Disheveled and Unkempt Patient Orientation: Person Level of Consciousness: Awake Patient Behavior: Guarded and Cooperative Mood Description: Depressed Affect Description: Constricted, Fearful and Labile Patient Cognition Impaired: No Ability to Follow Directions: Good Speech Pattern: Clear Hallucinations: Auditory Delusions: Paranoid Ideation Thought Process: Linear Thought Content: positive for Circumstantial Depressive Symptoms: Increased Anxiety Judgement: Fair Diagnostics Vital Signs (24Hr): Vital Signs - 24 hr 10/16/21 18:00 10/16/21 21:36 10/16/21 21:39 Temperature 98.3 F Pulse Rate 82 69 69 Respiratory Rate 17 Blood Pressure 129/78 140/82 H 140/82 H Pulse Oximetry 98 10/17/21 06:00 10/17/21 09:07 Temperature 97.2 F Pulse Rate 86 74 Respiratory Rate 18 Blood Pressure 116/78 121/70 Pulse Oximetry 97 BMI result Body Mass Index 41.8 Labs Results: 10/06/21 08:08 10/11/21 08:27 Labs: Laboratory Results - last 48 hr 10/16/21 10/16/21 10/16/21 08:04 08:14 17:10 POC Glucose 100 Urine Color YELLOW Urine Appearance CLEAR Urine pH 6.0 Ur Specific [place] <= 1.005 Urine Protein NEG Urine Glucose (UA) NEG Urine Ketones NEG Urine Blood NEG Urine Nitrite NEG Ur Leukocyte Esterase 1+ H Urine RBC 0-2 Urine WBC 5-9 H Ur Squamous Epith Cells TRACE Urine Bacteria 2+ Urine Mucus TRACE [place] 0.19 L 10/17/21 10:46 POC Glucose 161 H Urine Color Urine Appearance Urine pH Ur Specific [place] Urine Protein Urine Glucose (UA) Urine Ketones Urine Blood Urine Nitrite Ur Leukocyte Esterase Urine RBC Urine WBC Ur Squamous Epith Cells Urine Bacteria Urine Mucus [place] Medications Medications Current Medications Acetaminophen (Acetaminophen 325 Mg Tablet) 650 mg PO Q6H PRN PRN Reason: Headache/Pain Mild Scale (1-3) Al Hydroxide/Mg Hydroxide (Magnesium Hydrox/Alum Hydrox 30 Ml Oral.Susp) 30 ml PO Q6H PRN PRN Reason: Heartburn/Nausea Last Admin: 10/11/21 22:59 Dose: 30 ml Documented by: Albuterol Sulfate (Albuterol Sulfate 90 Mcg 8 Gm Inhaler) 2 puff INHALE Q4H PRN PRN Reason: Shortness Of Breath Last Admin: 10/17/21 09:08 Dose: 2 puff Documented by: Atorvastatin Calcium (Atorvastatin Calcium 10 Mg Tablet) 10 mg PO BEDTIME [facility] Last Admin: 10/16/21 21:36 Dose: 10 mg Documented by: Benztropine Mesylate (Benztropine Mesylate 0.5 Mg Tablet) 0.5 mg PO BID PRN PRN Reason: EPS Chlorpromazine HCl (Chlorpromazine Hcl 25 Mg Tablet) 50 mg PO QID [facility] Last Admin: 10/17/21 14:26 Dose: 50 mg Documented by: Chlorpromazine HCl (Chlorpromazine Hcl 25 Mg Tablet) 75 mg PO Q4H PRN PRN Reason: agitation Last Admin: 10/17/21 02:01 Dose: 75 mg Documented by: Clonazepam (Clonazepam 0.5 Mg Tablet) 0.5 mg PO QID PRN PRN Reason: Anxiety Last Admin: 10/17/21 09:07 Dose: 0.5 mg Documented by: Clonidine HCl (Clonidine Hcl 0.1 Mg Tablet) 0.1 mg PO BID@0830,1430 [facility]; Protocol Last Admin: 10/17/21 14:26 Dose: 0.1 mg Documented by: Ferrous Sulfate (Ferrous Sulfate 324 Mg Tablet.) 324 mg PO DAILY [facility] Last Admin: 10/17/21 09:07 Dose: 324 mg Documented by: Fluoxetine HCl (Fluoxetine Hcl 20 Mg Capsule) 40 mg PO DAILY [facility] Last Admin: 10/17/21 09:07 Dose: 40 mg Documented by: Fluticasone Propionate (Fluticasone Propionate 100 Mcg Blst.W.Dev) 2 puff INHALE RBID [facility] Last Admin: 10/17/21 09:08 Dose: 2 puff Documented by: Hydroxyzine HCl (Hydroxyzine Hcl 50 Mg Tablet) 50 mg PO QID PRN PRN Reason: Anxiety Last Admin: 10/17/21 02:01 Dose: 50 mg Documented by: [place] Carbonate ([place] Carbonate Er 450 Mg Tablet.Er) 450 mg PO BEDTIME [facility] Magnesium Hydroxide (Milk Of Magnesia 30 Ml Oral.Susp) 30 ml PO DAILY PRN PRN Reason: Constipation Metformin HCl (Metformin Hcl 500 Mg Tablet) 500 mg PO BID [facility] Last Admin: 10/17/21 09:08 Dose: 500 mg Documented by: Mirtazapine (Mirtazapine 7.5 Mg Tablet) 7.5 mg PO BEDTIME MRX1 [facility] Last Admin: 10/16/21 22:00 Dose: 7.5 mg Documented by: Montelukast Sodium (Montelukast Sodium 10 Mg Tablet) 10 mg PO BEDTIME [facility] Last Admin: 10/16/21 21:35 Dose: 10 mg Documented by: Nicotine (Nicotine 21 Mg Patch.Td24) 21 mg TRANSDERMA DAILY PRN PRN Reason: smoking cessation Last Admin: 10/11/21 08:45 Dose: 21 mg Documented by: Nystatin (Nystatin Cream 15 Gm Tube) 1 appl TOPICAL BID [facility]; Protocol Last Admin: 10/17/21 12:47 Dose: Not Given Documented by: Omeprazole (Omeprazole 20 Mg Capsule.Dr) 20 mg PO BID@0630,1630 [facility] Last Admin: 10/17/21 06:55 Dose: 20 mg Documented by: Polyethylene Glycol (Polyethylene Glycol 3350 17 Gm Powd.Pack) 17 gm PO DAILY PRN PRN Reason: Constipation Last Admin: 10/08/21 09:45 Dose: 17 gm Documented by: Prazosin HCl (Prazosin Hcl 1 Mg Capsule) 3 mg PO BEDTIME [facility]; Protocol Last Admin: 10/16/21 21:36 Dose: 3 mg Documented by: Trazodone HCl (Trazodone Hcl 100 Mg Tablet) 100 mg PO BEDTIME PRN PRN Reason: Anxiety Last Admin: 10/17/21 02:01 Dose: 100 mg Documented by: Verapamil HCl (Verapamil Hcl Sr 120 Mg Tablet.Er) 120 mg PO BEDTIME [facility]; Protocol Last Admin: 10/16/21 21:39 Dose: 120 mg Documented by: Verapamil HCl (Verapamil Hcl Sr 180 Mg Tablet.Er) 180 mg PO BEDTIME [facility]; Protocol Last Admin: 10/16/21 21:39 Dose: 180 mg Documented by: Allergies Allergies Allergy/AdvReac Type Severity Reaction Status Date / Time Fish Containing Products Allergy Severe ANAPHYLAXIS Verified 08/18/21 18:18 codeine [Codeine] Allergy Unknown RASH Verified 08/18/21 18:18 Penicillins Allergy Unknown RASH Verified 08/18/21 18:18 prednisone [Prednisone] Allergy Unknown RASH Verified 08/18/21 18:18 Sulfa (Sulfonamide Allergy Unknown RASH Verified 08/18/21 18:18 Antibiotics) [Sulfa (Sulfonamides)] azithromycin [AZITHROMYCIN] AdvReac Severe RASH Verified 08/18/21 18:18 nicotine AdvReac Unknown HEART Verified 08/18/21 18:18 PALPITATION TO NICOTINE GUM Seafood Allergy Severe ANAPHYLAXIS Uncoded 07/31/21 20:43 From [place] Allergy Unknown DYSURIA, Uncoded 07/31/21 20:43 RASH Assessment & Plan Assessment & Plan (1) Depression: Qualifiers: Active/Remission status: currently active Depression Type: major depressive disorder Major depression episode severity: severe Major depression recurrence: recurrent Psychotic features: with psychotic features Qualified Code(s): F33.3 - Major depressive disorder, recurrent, severe with psychotic symptoms Status: Acute Code(s): F32.A - Depression, unspecified (2) Borderline personality disorder: Status: Chronic Code(s): F60.3 - Borderline personality disorder (3) PTSD (post-traumatic stress disorder): Status: Chronic Code(s): F43.10 - Post-traumatic stress disorder, unspecified (4) Suicidal ideation: Status: Resolved Code(s): R45.851 - Suicidal ideations Assessment and Plan: admit to unit, keep safe. 1:1 to prevent SIB. continue prior medications regimen. T/C vibra; contact hardik linares to review case. 10/11: Reports depressed mood, struggling with suicidal ideations, urges to self harm, has been on a 1:1 since admission. Reviewed med history, prozac recently decreased due to possible activation at 60 mg. She has PRN medications to target anxiety, klonopin and thorazine, which were recently increased. Pt denies past benefit on TMS and ECT. Has past trials on Risperdal, haldol, wellbutrin, celexa, cymbalta, abilify, seroquel XR, revia, trileptal, lithium. She reports lithium was helpful for SI but she was taken off it due to I got toxic. Reviewed CBC, CMP, pt is willing to retrial lithium ER at a low dose. Will start lithium ER 300 mg QHS, discontinue lisinopril 5 mg QAM due to drug interaction and will monitor BP, as pt already has other rate controlling medications on board. 10/12: No medication changes, will monitor lithium trial for benefit. 10/13: Will continue lithium trial for chronic SI, urges to self harm, mood stability, and depression. Will obtain lithium level. Discussed elevated BP with hospitalist, who recommended an increase in verapamil, as lisinopril was discontinued due to interaction with lithium. [id number] Patient seen chart reviewed patient reviewed treatment team. Try and taper gradually off one-to-one. Patient with chronic dissociation and internalized voices discussed strategies to take more responsibility for behavior. Patient does not appear psychotic encourage coping skill strategies continue medication 10/15/2021 Patient seen chart reviewed case reviewed treatment team nursing. Patient remains quite depressed start mirtazapine consider cytomel monitor safety Patient remains guarded internally preoccupied flat and donning severely depressed hopeless helpless. Mirtazapine some seem somewhat helpful last night. Unfortunately generally patient has not been able to engage in DBT strategies does try to use behavioral activation and distraction. 10/17/2021 The patient reminds with self-harming behavior and anxiety. Her last lithium level was 0.918 at 300 mg or increased up to 450 to target mood lability. Continue rest of the other medications. I spent minutes with the patient and/or on the patient floor today, greater than?50% of which was spent counseling/coordinating care. Reason for contiued inpatient stay Substantial Risk for: inability to function, rapid decompensation and med/psych decompensation
[2021-10-17] MEDS: Prazosin HCL 1 MG CAPSULE 3 MG PO (22:08)
[2021-10-17] MEDS: Nystatin Cream 15 GM TUBE 1 APPL TOPICAL (22:08)
[2021-10-17] MEDS: Mirtazapine 7.5 MG TABLET PO (22:09)
[2021-10-17] MEDS: Atorvastatin Calcium 10 MG TABLET PO (22:09)
[2021-10-17] MEDS: VerapamiL HCL SR 120 MG TABLET.ER PO (22:09)
[2021-10-17] MEDS: VerapamiL HCL SR 180 MG TABLET.ER PO (22:10)
[2021-10-17] MEDS: Lithium Carbonate ER 450 MG TABLET.ER PO (22:10)
[2021-10-17] MEDS: Montelukast Sodium 10 MG TABLET PO (22:10)
[2021-10-17 22:11] VITALS: BP 136/78; PULSE 78; TEMP 36.6; O2SAT 99
[2021-10-18] MEDS: Mirtazapine 7.5 MG TABLET PO (00:16)
[2021-10-18] MEDS: chlorproMAZINE HCl 25 MG TABLET 75 MG PO (00:16)
[2021-10-18] MEDS: hydrOXYzine HCL 50 MG TABLET PO (04:20)
[2021-10-18] MEDS: Omeprazole 20 MG CAPSULE.DR PO (06:55)
[2021-10-18 08:00] VITALS: BP 130/85; PULSE 80; TEMP 36; O2SAT 98
[2021-10-18] MEDS: Fluticasone Propionate 100 MCG BLST.W.DEV 2 PUFF INHALE (09:07)
[2021-10-18] MEDS: metFORMIN HCl 500 MG TABLET PO (09:07)
[2021-10-18] MEDS: FLUoxetine HCl 20 MG CAPSULE 40 MG PO (09:07)
[2021-10-18] MEDS: Ferrous Sulfate 324 MG TABLET.DR PO (09:07)
[2021-10-18] MEDS: cloNIDine HCL 0.1 MG TABLET PO (09:07)
[2021-10-18] MEDS: Albuterol Sulfate 90 MCG 8 GM INHALER 2 PUFF INHALE (09:07)
[2021-10-18] MEDS: chlorproMAZINE HCl 25 MG TABLET 50 MG PO (09:07)
[2021-10-18 09:31] LABS: Creatinine Clr Calc Pharmacy 97.4; Estimated Glomerular Filt Rate > 60
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
[2021-10-18] MEDS: clonazePAM 0.5 MG TABLET PO (11:18)
[2021-10-18 12:03] LABS: Glucose, Whole Blood 164 mg/dL (60-115)
--- NOTE | 2021-10-18 14:10 | PC.NURSE ---
Patient was ready and well aware . Paperwork reviewed with patient . Next dose medications and follow up appointment reviewed with patient. Patient verbalized understanding. Patient was pleasant and cooperative during the discharge process. Patient was accompanied with belongings to the front of the building per Hospital policy.
== END 2021-10-18 13:30 | disposition home or self-care (01) | DRG 885 ==
LOC: HO.ED 10-05 19:42 → HO.PADLT16 10-05 19:46
PROVIDERS: Nurse Practitioner Family; Psychiatry & Neurology Psychiatry; Admitting Provider Registered Nurse; Emergency Provider Internal Medicine; Visit Provider Psychiatry & Neurology Psychiatry
DX: F33.3 Major depressive disorder, recurrent, severe with psychotic symptoms (principal); R45.851 Suicidal ideations; F43.10 Post-traumatic stress disorder, unspecified; K21.9 Gastro-esophageal reflux disease without esophagitis; E78.5 Hyperlipidemia, unspecified; Z20.822 Contact with and (suspected) exposure to COVID-19; F17.210 Nicotine dependence, cigarettes, uncomplicated; F60.3 Borderline personality disorder; Z71.6 Tobacco abuse counseling; B36.9 Superficial mycosis, unspecified; Z62.810 Personal history of physical and sexual abuse in childhood; Z91.52 Personal history of nonsuicidal self-harm; Z88.0 Allergy status to penicillin; Z88.2 Allergy status to sulfonamides; Z88.5 Allergy status to narcotic agent; Z79.1 Long term (current) use of non-steroidal anti-inflammatories (NSAID); Z79.84 Long term (current) use of oral hypoglycemic drugs; Z79.899 Other long term (current) drug therapy
CPT/HCPCS: 36415; 80048; 80053; 80061; 80178; 80307; 81001; 82565; 82607; 82746; 82947; 83036; 83735; 84439; 84443; 85025; 87086; 87088; 87186; 87635; 93005; 99285

== ENCOUNTER 2021-10-18 19:12 | Emergency (ER) | payer MEDICARE, MEDICAID, SELFPAY ==
[2021-10-18 19:25] VITALS: BP 190/112; PULSE 110; RESP 18; TEMP 36.7; O2SAT 96; BMI 37.4
[2021-10-18 19:55] LABS: Appearance Urine CLEAR; Color Urine STRAW; Glucose Urine UA NEG (NEG); Leukocyte Esterase Urine NEG (NEG); Nitrite Urine NEG (NEG); Specific Gravity - Urine <= 1.005 (1.005-1.025); Urine Blood NEG (NEG); Urine Ketones NEG (NEG); Urine Protein NEG (NEG-TRACE)
[2021-10-18 19:56] LABS: UPreg QC Valid YES; Urine Pregnancy NEGATIVE (NEGATIVE)
[2021-10-18 20:02] LABS: RBC Urine 0 /HPF (0); Squamous Epithelial Cell Urine 2+ /LPF; WBC Urine 0-2 /HPF (0-4)
[2021-10-18 20:03] LABS: Bacteria Urine TRACE /LPF
[2021-10-18 20:07] LABS: Amphetamine Screen Urine Not Detected (Not Detect); Barbiturates, Urine Not Detected (Not Detect); Benzodiazepines Screen Urine Not Detected (Not Detect); Cannabinoid Screen Urine Not Detected (Not Detect); Cocaine Screen Urine Not Detected (Not Detect); Fentanyl, urine Not Detected (Not Detect); Opiate Screen Urine Not Detected (Not Detect); Phencyclidine Screen Urine Not Detected (Not Detect)
[2021-10-18 20:11] LABS: COVID-19 Test Negative (Negative); IDNOW Serial# 9DD0AD1C
--- NOTE | 2021-10-18 20:23 | ED_ITS ---
HPI - Psych General Chief Complaint: Psychiatric Symptoms Stated Complaint: crisis Time Seen by Provider: 10/18/21 19:34 Source: patient Mode of arrival: ambulatory Limitations: no limitations History of Present Illness HPI Narrative: Patient brought to the ED for self-inflicted wounds. Patient's history is significant psych history known to the ED for multiple ED visits for laceration of wrist. Patient discharged this morning from [facility] psych unit states she felt sad so she cut her wrist. Plan for care team for patient to be evaluated in the morning by Care Plan. Related Data Home Medications Medication Instructions Recorded Confirmed polyethylene glycol 3350 17 gram 17 g PO DAILY PRN 02/12/21 10/18/21 oral powder packet (Miralax) atorvastatin 10 mg tablet 1 tab PO DAILY 05/29/21 10/18/21 ferrous sulfate 325 mg (65 mg 1 tab PO DAILY 05/29/21 10/18/21 iron) tablet,delayed release fluticasone propionate 110 2 puff INHALATION BID 05/29/21 10/18/21 mcg/actuation HFA aerosol inhaler (Flovent HFA) metformin 500 mg tablet 1 tab PO BID 05/29/21 10/18/21 montelukast 10 mg tablet 1 tab PO BEDTIME 05/29/21 10/18/21 norethindrone (contraceptive) 0.35 0.35 mg PO DAILY 05/29/21 10/18/21 mg tablet (Deblitane) pantoprazole 40 mg tablet,delayed 1 tab PO BID@0630,1630 05/29/21 10/18/21 release verapamil 240 mg tablet,extended 1 tab PO BEDTIME 05/29/21 10/18/21 release albuterol sulfate 90 mcg/actuation 2 puff INHALATION Q4H PRN 06/15/21 10/18/21 aerosol inhaler (Ventolin HFA) clonidine HCl 0.1 mg tablet 0.1 mg PO BID@0830,1430 08/26/21 10/18/21 ibuprofen 600 mg tablet 600 mg PO Q6H PRN 09/19/21 10/18/21 Previous Rx's Medication Instructions Recorded benztropine 0.5 mg tablet 0.5 mg PO BID PRN 30 Days #60 tab 07/27/21 hydroxyzine HCl 50 mg tablet 50 mg PO QID PRN 30 Days #120 tab 07/27/21 chlorpromazine 25 mg tablet 50 mg PO QID 30 Days #240 tab 08/15/21 nicotine 21 mg/24 hr daily 21 mg TRANSDERMAL DAILY PRN 28 09/06/21 transdermal patch Days #28 ea chlorpromazine 25 mg tablet 75 mg PO Q4H PRN 30 Days #300 tab 09/29/21 clonazepam 0.5 mg tablet 0.5 mg PO QID PRN 30 Days #60 tab 09/29/21 fluoxetine 20 mg capsule 40 mg PO DAILY 30 Days #60 cap 09/29/21 nystatin 100,000 unit/gram topical 1 appl TOPICAL BID 15 Days #5 g 09/29/21 cream lithium carbonate 450 mg 450 mg PO BEDTIME 30 Days #30 tab 10/18/21 tablet,extended release mirtazapine 7.5 mg tablet 7.5 mg PO BEDTIME MRX1 30 Days #60 10/18/21 tab prazosin 1 mg capsule 4 mg PO BEDTIME 30 Days #120 cap 10/18/21 trazodone 150 mg tablet 100 mg PO BEDTIME PRN 30 Days #30 10/18/21 tab Allergies Allergy/AdvReac Type Severity Reaction Status Date / Time Fish Containing Products Allergy Severe ANAPHYLAXIS Verified 08/18/21 18:18 codeine [Codeine] Allergy Unknown RASH Verified 08/18/21 18:18 Penicillins Allergy Unknown RASH Verified 08/18/21 18:18 prednisone [Prednisone] Allergy Unknown RASH Verified 08/18/21 18:18 Sulfa (Sulfonamide Allergy Unknown RASH Verified 08/18/21 18:18 Antibiotics) [Sulfa (Sulfonamides)] azithromycin [AZITHROMYCIN] AdvReac Severe RASH Verified 08/18/21 18:18 nicotine AdvReac Unknown HEART Verified 08/18/21 18:18 PALPITATION TO NICOTINE GUM Seafood Allergy Severe ANAPHYLAXIS Uncoded 07/31/21 20:43 From Geodon Allergy Unknown DYSURIA, Uncoded 07/31/21 20:43 RASH Review of Systems Review of Systems: Cut wrists Yes all other systems are reviewed and are negative PMFSH Past Medical History Medical History Bronchitis Diabetes type 2, controlled GERD (gastroesophageal reflux disease) Hyperlipidemia MDD (major depressive disorder), recurrent episode, severe Mood disorder Overdose PTSD (post-traumatic stress disorder) Social History Social History 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: None 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 Other:: Patient lives in half-way. 4 in total live in half-way. Housing: Other Housing Other:: prison Do you presently have visiting nurse or other home services: No (Medication administered by half-way staff) Unable to assess alcohol history related to: Unknown Alcohol intake: never Patient Tobacco Use Status: Current everyday Tobacco user Tobacco use type: Cigarette Cigarette Packs Per Day: 1 Cigarettes Per Day: 20 Years Smoked: 20 e-Cigarette/Vaping Use: Never Used Second Hand Smoke Exposure: Yes Substance Use Type: Caffiene Advance Directives: No Advance Directives Information Provided: No Patient : No service: No Sexual orientation: Don't Know Physical Exam Vital Signs: Vital Signs: Last Vital Signs Temp 98.0 F 10/18/21 23:35 Pulse 104 H 10/18/21 23:35 Resp 17 10/18/21 23:35 BP 139/85 10/18/21 23:35 Pulse Ox 99 10/18/21 23:35 BMI result Body Mass Index 37.4 Const: General: cooperative, healthy appearing, comfortable, no acute distress, well developed, alert and awake; No Physically active Ded[place] entation/consciousness: patient oriented x3 HENMT: Head: Yes normal to inspection, Yes No palpable skull fracture present, Yes normocephalic, Yes atraumatic and No abrasion Eyes: General: appearance normal, both eyes and all related structures Neck: Neck: Yes normal visual inspection, Yes full ROM, Yes no lymphadenopathy, Yes no meningeal signs, Yes trachea midline, Yes supple, No anterior neck swelling and No tender Chest: Chest palpation & inspection: normal inspection of the chest and normal palpation of entire chest wall Resp: Effort & Inspection: normal respiratory effort and able to speak in complete sentences Cardio: Jugular venous distension: no JVD Heart sounds: S1 normal heart sound present and S2 normal heart sound present GI: Inspection: Yes normal to inspection and No abdominal wall ecchymosis Palpation (GI): Soft to palpation, not firm, nontender, no guarding and not rigid : General: No CVA tenderness and Yes no CVA tenderness Back/Spine/Pelvis: Back: no CVA tenderness, No CVA tenderness and No back tenderness Skin: General skin exam: no rashes or lesions noted and elasticity normal Neuro: General: patient oriented x3, gait normal, no meningeal signs and CN's II-XI intact bilaterally Cranial nerves: Yes CN's II-XII intact bilaterally Extrem: Other: positive for bilateral wrist superficial lacerations/abrasions no need for suture repair. Psych: Appearance: grossly normal and well kempt Course Course Course Narrative: TORRES ordered. Patient to be evaluated by care team in the morning. Reevaluation(s) Reevaluation #1: patient vital signs improved. Patient waiting for care team in the morning. Time: 01:41 MDM - Psych MDM Narrative Medical decision making narrative: borderline personality disorder Lab Data Labs: Lab Results 10/18/21 10/18/21 10/18/21 Range/Units 19:43 19:43 19:43 Urine Color Urine Appearance Urine pH (5.0-8.0) Ur Specific [place] (1.005-1.025) Urine Protein (NEG-TRACE) MG/DL Urine Glucose (UA) (NEG) MG/DL Urine Ketones (NEG) MG/DL Urine Blood (NEG) Urine Nitrite (NEG) Ur Leukocyte Esterase (NEG) Urine RBC (0) /HPF Urine WBC (0-4) /HPF Ur Squamous Epith Cells /LPF Urine Bacteria /LPF Urine Test NEGATIVE (NEGATIVE) Urine Opiates Screen Not Detected (Not Detect) Urine Fentanyl Screen Not Detected (Not Detect) Ur Barbiturates Screen Not Detected (Not Detect) Ur Phencyclidine Scrn Not Detected (Not Detect) Ur Amphetamines Screen Not Detected (Not Detect) U Benzodiazepines Scrn Not Detected (Not Detect) Urine Cocaine Screen Not Detected (Not Detect) U Marijuana (THC) Screen Not Detected (Not Detect) COVID-19 (NICK) Negative (Negative) COVID-19 Clin Com See Note 10/18/21 Range/Units 19:43 Urine Color STRAW Urine Appearance CLEAR Urine pH 6.0 (5.0-8.0) Ur Specific [place] <= 1.005 (1.005-1.025) Urine Protein NEG (NEG-TRACE) MG/DL Urine Glucose (UA) NEG (NEG) MG/DL Urine Ketones NEG (NEG) MG/DL Urine Blood NEG (NEG) Urine Nitrite NEG (NEG) Ur Leukocyte Esterase NEG (NEG) Urine RBC 0 (0) /HPF Urine WBC 0-2 (0-4) /HPF Ur Squamous Epith Cells 2+ /LPF Urine Bacteria TRACE /LPF Urine Test (NEGATIVE) Urine Opiates Screen (Not Detect) Urine Fentanyl Screen (Not Detect) Ur Barbiturates Screen (Not Detect) Ur Phencyclidine Scrn (Not Detect) Ur Amphetamines Screen (Not Detect) U Benzodiazepines Scrn (Not Detect) Urine Cocaine Screen (Not Detect) U Marijuana (THC) Screen (Not Detect) COVID-19 (NICK) (Negative) COVID-19 Clin Com Discharge Plan Discharge Clinical Impression: Borderline personality disorder Patient Disposition: Still a Patient Prescriptions: No Action polyethylene glycol 3350 [Miralax] 17 gram Powder In Packet 17 g PO DAILY PRN (Reason: Constipation) RF: 0 metformin 500 mg tablet 1 tab PO BID RF: 0 atorvastatin 10 mg tablet 1 tab PO DAILY RF: 0 pantoprazole 40 mg tablet,delayed release (DR/EC) 1 tab PO BID@0630,1630 RF: 0 verapamil 240 mg tablet extended release 1 tab PO BEDTIME RF: 0 montelukast 10 mg tablet 1 tab PO BEDTIME RF: 0 ferrous sulfate 325 mg (65 mg iron) tablet,delayed release (DR/EC) 1 tab PO DAILY RF: 0 Flovent HFA 110 mcg/actuation HFA aerosol inhaler 2 puff inhalation BID RF: 0 norethindrone (contraceptive) [Deblitane] 0.35 mg Tablet 0.35 mg PO DAILY RF: 0 albuterol sulfate [Ventolin HFA] 90 mcg/actuation HFA aerosol inhaler 2 puff inhalation Q4H PRN (Reason: Shortness Of Breath) RF: 0 nicotine 21 mg/24 hr Patch 24 Hour 21 mg transdermal DAILY PRN (Reason: smoking cessation) 28 Days Qty: 28 RF: 0 benztropine 0.5 mg Tablet 0.5 mg PO BID PRN (Reason: EPS) 30 Days Qty: 60 RF: 0 hydroxyzine HCl 50 mg Tablet 50 mg PO QID PRN (Reason: Anxiety) 30 Days Qty: 120 RF: 0 chlorpromazine 25 mg Tablet 50 mg PO QID 30 Days Qty: 240 RF: 0 clonidine HCl 0.1 mg tablet 0.1 mg PO BID@0830,1430 RF: 0 ibuprofen 600 mg Tablet 600 mg PO Q6H PRN (Reason: Mild Pain (Scale Score 1-4)) RF: 0 chlorpromazine 25 mg Tablet 75 mg PO Q4H PRN (Reason: agitation) 30 Days Qty: 300 RF: 0 nystatin 100,000 unit/gram Cream 1 appl topical BID 15 Days Qty: 5 RF: 0 fluoxetine 20 mg Capsule 40 mg PO DAILY 30 Days Qty: 60 RF: 0 clonazepam 0.5 mg Tablet 0.5 mg PO QID PRN (Reason: anxiety/AH) 30 Days Qty: 60 RF: 0 prazosin 1 mg Capsule 4 mg PO BEDTIME 30 Days Qty: 120 RF: 0 lithium carbonate 450 mg Tablet Extended Release 450 mg PO BEDTIME 30 Days Qty: 30 RF: 0 mirtazapine 7.5 mg Tablet 7.5 mg PO BEDTIME MRX1 30 Days Qty: 60 RF: 0 trazodone 150 mg tablet 100 mg PO BEDTIME PRN (Reason: insomnia) 30 Days Qty: 30 RF: 0
[2021-10-18] MEDS: LORazepam 1 MG TABLET 2 MG PO (20:41)
--- NOTE | 2021-10-18 20:45 | PC.NURSE ---
Patient's bilateral hands were seen by provider, ordered to wash cuts with NS, apply bacitracin, area cleansed as ordered/secured with dressing, patient removed the entire dressing start picking cuts, Ativan 2 mg administered as ordered, pending effect, will continue to monitor.
[2021-10-18 23:35] VITALS: BP 139/85; PULSE 104; RESP 17; TEMP 36.7; O2SAT 99
[2021-10-18] MEDS: clonazePAM 0.5 MG TABLET PO (23:45)
[2021-10-18] MEDS: chlorproMAZINE HCl 25 MG TABLET 50 MG PO (23:45)
[2021-10-18] MEDS: Albuterol Sulfate 90 MCG 8 GM INHALER 2 PUFF INHALE (23:45)
[2021-10-18] MEDS: traZODone HCL 100 MG TABLET PO (23:45)
--- NOTE | 2021-10-19 05:27 | PC.NURSE ---
Patient slept through the night, no distress observed/reported, patient removed her dressing from her bilateral hand, advised not to pick her skin, medication compliant, behavior appropriate, contracted for the safety, patient will be evaluated by care team in the morning, patient was discharged on 10/18/2020, VSS, will continue to monitor.
[2021-10-19] MEDS: Omeprazole 20 MG CAPSULE.DR PO (06:23)
--- NOTE | 2021-10-19 07:13 | PC.NURSE ---
patient appeared to be asleep at beginning of shift respirations are even and unlabored paitent appears in no distress
[2021-10-19 08:01] VITALS: BP 145/71; PULSE 95; RESP 16; TEMP 36.8; O2SAT 97
[2021-10-19] MEDS: metFORMIN HCl 500 MG TABLET PO (08:04)
[2021-10-19] MEDS: FLUoxetine HCl 20 MG CAPSULE 40 MG PO (08:04)
[2021-10-19] MEDS: Atorvastatin Calcium 10 MG TABLET PO (08:05)
[2021-10-19] MEDS: cloNIDine HCL 0.1 MG TABLET PO (08:05)
[2021-10-19] MEDS: chlorproMAZINE HCl 25 MG TABLET 50 MG PO (08:05)
[2021-10-19] MEDS: Ferrous Sulfate 324 MG TABLET.DR PO (08:05)
--- NOTE | 2021-10-19 10:08 | MHC.CARE ---
CARE Team met with patient in [facility] who had been brought to the ED last night by ambulance from home after she made multiple cuts to both forearms, her wounds were all superficial. Patient has requested discharge to home, she stated she was not trying to kill herself but was struggling with voices and then found a broken ceramic mug while cleaning her room and that her actions were impulsive and she was not trying to end her life, does not want to . Spent some time processing the sequence of actions last night, patient appears unable to control these urges and when she sees a sharp object is compelled to cut, is automatic and noted she does not feel pain in the moment. Patient said she would like to be able to stop, stated it happens quickly and she can barely remember cutting. In addition, patient reported she did not feel her last admission was helpful because of the amount of patients and noise on the unit. At this time, patient is considered clear to discharge home and not in need of inpatient psychiatric care. Call to senior care, staff know patient well and said they have no urgent concerns, patient welcome to come home. ED provider, TIMI Davis in agreement with plan. CARE Team will arrange LYFT for transport home.
== END 2021-10-19 10:12 | disposition home or self-care (01) ==
PROVIDERS: Physician Assistant; Emergency Provider Emergency Medicine Emergency Medical Services
DX: F60.3 Borderline personality disorder (principal); S60.812A Abrasion of left wrist, initial encounter; S60.811A Abrasion of right wrist, initial encounter; X78.9XXA Intentional self-harm by unspecified sharp object, initial encounter; F32.A Depression, unspecified; E11.9 Type 2 diabetes mellitus without complications; E78.5 Hyperlipidemia, unspecified; F43.10 Post-traumatic stress disorder, unspecified; Z79.899 Other long term (current) drug therapy; Z79.02 Long term (current) use of antithrombotics/antiplatelets; F17.200 Nicotine dependence, unspecified, uncomplicated; Z91.51 Personal history of suicidal behavior; Z20.822 Contact with and (suspected) exposure to COVID-19; Y93.89 Activity, other specified; Y92.049 Unspecified place in boarding-house as the place of occurrence of the external cause; Y99.9 Unspecified external cause status
CPT/HCPCS: 80307; 81001; 81025; 87635; 99283; 99285

== ENCOUNTER 2021-10-20 15:49 | Emergency (ER) | payer MEDICARE, MEDICAID, SELFPAY ==
[2021-10-20 16:26] VITALS: BP 149/89; PULSE 92; RESP 20; TEMP 36.4; O2SAT 99; BMI 37.9
--- NOTE | 2021-10-20 17:05 | ED.PSYCH ---
HPI - Psych General Chief Complaint: Psychiatric Symptoms Stated Complaint: SI W/ SUPERFICIAL LACS TO ARM Time Seen by Provider: 10/20/21 16:43 Source: patient Mode of arrival: EMS Limitations: no limitations History of Present Illness HPI Narrative: Patient is a 45-year-old female with a past medical history significant for borderline personality disorder, depression, posttraumatic stress disorder. She presents to the emergency department with 3 days of suicidal ideations, and auditory command hallucinations. Denies homicidal ideations. She has been self-harming, cutting her arms and legs. Denies any recreational drug or alcohol usage. She resides in a senior living currently, and reports that she feels safe being there. MD complaint: suicidal ideation, feels depressed and hallucinations (auditory command) Onset (ago): day(s) History of same: Yes Relieving factors: none Exacerbating factors: none Associated psychiatric symptoms: depression, suicidal ideation and auditory hallucinations Treatments prior to arrival: none If self harm: admits thoughts of self harm Related Data Home Medications Medication Instructions Recorded Confirmed polyethylene glycol 3350 17 gram 17 g PO DAILY PRN 02/12/21 10/18/21 oral powder packet (Miralax) atorvastatin 10 mg tablet 1 tab PO DAILY 05/29/21 10/18/21 ferrous sulfate 325 mg (65 mg 1 tab PO DAILY 05/29/21 10/18/21 iron) tablet,delayed release fluticasone propionate 110 2 puff INHALATION BID 05/29/21 10/18/21 mcg/actuation HFA aerosol inhaler (Flovent HFA) metformin 500 mg tablet 1 tab PO BID 05/29/21 10/18/21 montelukast 10 mg tablet 1 tab PO BEDTIME 05/29/21 10/18/21 norethindrone (contraceptive) 0.35 0.35 mg PO DAILY 05/29/21 10/18/21 mg tablet (Deblitane) pantoprazole 40 mg tablet,delayed 1 tab PO BID@0630,1630 05/29/21 10/18/21 release verapamil 240 mg tablet,extended 1 tab PO BEDTIME 05/29/21 10/18/21 release albuterol sulfate 90 mcg/actuation 2 puff INHALATION Q4H PRN 06/15/21 10/18/21 aerosol inhaler (Ventolin HFA) clonidine HCl 0.1 mg tablet 0.1 mg PO BID@0830,1430 08/26/21 10/18/21 ibuprofen 600 mg tablet 600 mg PO Q6H PRN 09/19/21 10/18/21 Previous Rx's Medication Instructions Recorded benztropine 0.5 mg tablet 0.5 mg PO BID PRN 30 Days #60 tab 07/27/21 hydroxyzine HCl 50 mg tablet 50 mg PO QID PRN 30 Days #120 tab 07/27/21 chlorpromazine 25 mg tablet 50 mg PO QID 30 Days #240 tab 08/15/21 nicotine 21 mg/24 hr daily 21 mg TRANSDERMAL DAILY PRN 28 09/06/21 transdermal patch Days #28 ea chlorpromazine 25 mg tablet 75 mg PO Q4H PRN 30 Days #300 tab 09/29/21 clonazepam 0.5 mg tablet 0.5 mg PO QID PRN 30 Days #60 tab 09/29/21 fluoxetine 20 mg capsule 40 mg PO DAILY 30 Days #60 cap 09/29/21 nystatin 100,000 unit/gram topical 1 appl TOPICAL BID 15 Days #5 g 09/29/21 cream lithium carbonate 450 mg 450 mg PO BEDTIME 30 Days #30 tab 10/18/21 tablet,extended release mirtazapine 7.5 mg tablet 7.5 mg PO BEDTIME MRX1 30 Days #60 10/18/21 tab prazosin 1 mg capsule 4 mg PO BEDTIME 30 Days #120 cap 10/18/21 trazodone 150 mg tablet 100 mg PO BEDTIME PRN 30 Days #30 10/18/21 tab Allergies Allergy/AdvReac Type Severity Reaction Status Date / Time Fish Containing Products Allergy Severe ANAPHYLAXIS Verified 08/18/21 18:18 codeine [Codeine] Allergy Unknown RASH Verified 08/18/21 18:18 Penicillins Allergy Unknown RASH Verified 08/18/21 18:18 prednisone [Prednisone] Allergy Unknown RASH Verified 08/18/21 18:18 Sulfa (Sulfonamide Allergy Unknown RASH Verified 08/18/21 18:18 Antibiotics) [Sulfa (Sulfonamides)] azithromycin [AZITHROMYCIN] AdvReac Severe RASH Verified 08/18/21 18:18 nicotine AdvReac Unknown HEART Verified 08/18/21 18:18 PALPITATION TO NICOTINE GUM Seafood Allergy Severe ANAPHYLAXIS Uncoded 07/31/21 20:43 From Geodon Allergy Unknown DYSURIA, Uncoded 07/31/21 20:43 RASH Review of Systems Review of Systems: Constitutional : No Fever, No Chills ENT/Mouth : No Ear Pain, No Nasal Congestion, No sore throat Eyes: No Eye Pain, No Swelling, No Redness Cardiovascular : No Chest Pain, No SOB Respiratory : No Cough, No Sputum, No Dyspnea Gastrointestinal : No ingestions, No Nausea, No Vomiting, No Diarrhea, No Hematochezia, No Melena Genitourinary : No Dysuria, No Urinary Frequency, No Hematuria Musculoskeletal : No Myalgias Skin : Lacerations to bilateral arms and legs. No Skin Lesions, No rash Neuro : No Weakness, No Numbness, No Paresthesias, No Dizziness, No Headache Psych : No Anxiety, No Depression, No SI/HI, No AVH, No thoughts of self injury Heme/Lymph: No Lymphadenopathy Endocrine : No Polyuria, No Polydipsia PMFSH Past Medical History Attestation statement: The following information was validated with the patient. Source: old records reviewed Medical History Bronchitis Diabetes type 2, controlled GERD (gastroesophageal reflux disease) Hyperlipidemia MDD (major depressive disorder), recurrent episode, severe Mood disorder Overdose PTSD (post-traumatic stress disorder) Social History Social History 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: None 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 Other:: Patient lives in senior living. 4 in total live in senior living. Housing: Other Housing Other:: alf Do you presently have visiting nurse or other home services: No (Medication administered by senior living staff) Unable to assess alcohol history related to: Unknown Alcohol intake: never Patient Tobacco Use Status: Current everyday Tobacco user Tobacco use type: Cigarette Cigarette Packs Per Day: 1 Cigarettes Per Day: 20 Years Smoked: 20 e-Cigarette/Vaping Use: Never Used Second Hand Smoke Exposure: Yes Substance Use Type: Caffiene Advance Directives: No Advance Directives Information Provided: Yes Patient : No service: No Sexual orientation: Don't Know Physical Exam Vital Signs: Vital Signs: Last Vital Signs Temp 97.6 F 10/20/21 16:26 Pulse 92 10/20/21 16:26 Resp 20 10/20/21 16:26 BP 149/89 H 10/20/21 16:26 Pulse Ox 99 10/20/21 16:26 BMI result Body Mass Index 37.9 Vital signs have been reviewed as normal and appeared to be correct. Blood pressure normal.? Heart rate normal.? Respiration rate normal. Temperature normal.? Oxygen saturation normal. Appearance: Alert. Oriented X3. No acute distress. Head: Normal external exam. Normocephalic. Atraumatic.? No Harper signs noted. No raccoon eyes noted Eyes: PERRLA. EOMI. Conjunctiva and sclera normal. Eyelids normal. ENT: EAC normal. TM's Normal. Pharynx normal. Uvula midline. Moist mucous membranes.? ?No trismus noted.? No drooling noted.? No muffled voice noted. Neck: Normal inspection. Neck supple. FROM. No adenopathy. Thyroid Normal. No meningeal signs. No neck mass noted. CVS: Normal heart rate and rhythm. Heart sound normal. No murmurs noted. Pulses normal throughout. Respiratory: No respiratory distress. Painless inspiration. Breath sounds normal. No wheezes/rales/rhonchi noted. Chest non-tender.? ?No accessory muscle usage noted or decreased air movement noted. Abdomen: Soft and nontender. Bowel sounds normal in all 4 quadrants. No distention noted.? No organomegaly noted.? No visible injury noted. Back:? No CVA tenderness.? Full range of motion noted. Skin: Skin warm and dry.? Normal skin color.? Normal skin turgor. No rashes/lesions/ noted. + superficial lacerations to bilateral arms and legs. No active bleeding or drainage. Extremities: No lower extremity edema.? ?Extremities exhibit normal range of motion.? Extremities non-tender. Neuro: Oriented X 3.? No motor deficit.? No sensory deficit.? Reflexes normal. Psych:? Appearance grossly normal, well-kept, mental status normal, speech and movement normal, speech clear, patient appears anxious along with depressed.? Is cooperative.? Normal thought process.? Normal thought content.? Normal good insight.? Judgment good. Course Course Course Narrative: Patient is a 45-year-old female presenting to the emergency department with suicidal ideations, command hallucinations, with superficial lacerations to her bilateral upper and lower extremities. Kait from the care team, reports that the patient was just evaluated at [facility] by Matty and was discharged home. She then presented to this emergency department. In the past, it has been found that she does not do well with discharge in the evening hours. Therefore, she will be re-evaluated by the care team tomorrow, and likely discharged back to her senior living. Reevaluation(s) Reevaluation #1: Patient signed out to Kelton Rainey, pending labs and and patient can be placed in physician observation to be re-evaluated by crisis tomorrow morning Time: 18:12 [facility] - Psych Lab Data Labs: Lab Results 10/20/21 Range/Units 17:28 Urine Test NEGATIVE (NEGATIVE) Discharge Plan Discharge Clinical Impression: Depression, Suicidal ideation Patient Disposition: Still a Patient Prescriptions: No Action polyethylene glycol 3350 [Miralax] 17 gram Powder In Packet 17 g PO DAILY PRN (Reason: Constipation) RF: 0 metformin 500 mg tablet 1 tab PO BID RF: 0 atorvastatin 10 mg tablet 1 tab PO DAILY RF: 0 pantoprazole 40 mg tablet,delayed release (DR/EC) 1 tab PO BID@0630,1630 RF: 0 verapamil 240 mg tablet extended release 1 tab PO BEDTIME RF: 0 montelukast 10 mg tablet 1 tab PO BEDTIME RF: 0 ferrous sulfate 325 mg (65 mg iron) tablet,delayed release (DR/EC) 1 tab PO DAILY RF: 0 Flovent HFA 110 mcg/actuation HFA aerosol inhaler 2 puff inhalation BID RF: 0 norethindrone (contraceptive) [Deblitane] 0.35 mg Tablet 0.35 mg PO DAILY RF: 0 albuterol sulfate [Ventolin HFA] 90 mcg/actuation HFA aerosol inhaler 2 puff inhalation Q4H PRN (Reason: Shortness Of Breath) RF: 0 nicotine 21 mg/24 hr Patch 24 Hour 21 mg transdermal DAILY PRN (Reason: smoking cessation) 28 Days Qty: 28 RF: 0 benztropine 0.5 mg Tablet 0.5 mg PO BID PRN (Reason: EPS) 30 Days Qty: 60 RF: 0 hydroxyzine HCl 50 mg Tablet 50 mg PO QID PRN (Reason: Anxiety) 30 Days Qty: 120 RF: 0 chlorpromazine 25 mg Tablet 50 mg PO QID 30 Days Qty: 240 RF: 0 clonidine HCl 0.1 mg tablet 0.1 mg PO BID@0830,1430 RF: 0 ibuprofen 600 mg Tablet 600 mg PO Q6H PRN (Reason: Mild Pain (Scale Score 1-4)) RF: 0 chlorpromazine 25 mg Tablet 75 mg PO Q4H PRN (Reason: agitation) 30 Days Qty: 300 RF: 0 nystatin 100,000 unit/gram Cream 1 appl topical BID 15 Days Qty: 5 RF: 0 fluoxetine 20 mg Capsule 40 mg PO DAILY 30 Days Qty: 60 RF: 0 clonazepam 0.5 mg Tablet 0.5 mg PO QID PRN (Reason: anxiety/AH) 30 Days Qty: 60 RF: 0 prazosin 1 mg Capsule 4 mg PO BEDTIME 30 Days Qty: 120 RF: 0 lithium carbonate 450 mg Tablet Extended Release 450 mg PO BEDTIME 30 Days Qty: 30 RF: 0 mirtazapine 7.5 mg Tablet 7.5 mg PO BEDTIME MRX1 30 Days Qty: 60 RF: 0 trazodone 150 mg tablet 100 mg PO BEDTIME PRN (Reason: insomnia) 30 Days Qty: 30 RF: 0
--- NOTE | 2021-10-20 17:20 | MHC.CARE ---
CARE Team speaks with pt briefly after pt initiates conversation. Pt states that she was assessed by [facility]N today at [facility], but pt stated that she felt better and was discharged. Pt states that she had been engaged in self harm for the past three days, stating that voices are telling her to cut herself. CARE Team recommends that pt be reassessed in the morning. It has been observed that pt is more regulated in the morning, and more likely to access lower levels of care, including current outpatient supports. TIMI Rivas agrees with plan to have pt reassessed in the morning.
[2021-10-20 17:45] LABS: UPreg QC Valid YES; Urine Pregnancy NEGATIVE (NEGATIVE)
[2021-10-20 17:51] LABS: COVID-19 Test Negative (Negative)
[2021-10-20 17:52] LABS: Amphetamine Screen Urine Not Detected (Not Detect); Barbiturates, Urine Not Detected (Not Detect); Benzodiazepines Screen Urine Not Detected (Not Detect); Cannabinoid Screen Urine Not Detected (Not Detect); Cocaine Screen Urine Not Detected (Not Detect); Fentanyl, urine Not Detected (Not Detect); Opiate Screen Urine Not Detected (Not Detect); Phencyclidine Screen Urine Not Detected (Not Detect)
--- NOTE | 2021-10-20 19:13 | MHC.CARE ---
CARE team met with pt. Pt verbalized to pt that she feels safe and wants to return home. Pt reports she believes she doesn't need inpatient and appears to be in a good space with good insight. Pt endorses [facility] , however reports but they will always be there nothing is going to change . Pt is presenting with baseline behaviors and requests to be d/c. Plan discussed with Dr. Jarvis and pt wa d.c to her long term via [facility].
== END 2021-10-20 19:03 | disposition home or self-care (01) ==
PROVIDERS: Nurse Practitioner Family; Emergency Provider Internal Medicine
DX: R45.851 Suicidal ideations (principal); F32.A Depression, unspecified; R44.0 Auditory hallucinations; S41.112A Laceration without foreign body of left upper arm, initial encounter; S41.111A Laceration without foreign body of right upper arm, initial encounter; S81.812A Laceration without foreign body, left lower leg, initial encounter; S81.811A Laceration without foreign body, right lower leg, initial encounter; X78.9XXA Intentional self-harm by unspecified sharp object, initial encounter; Z20.822 Contact with and (suspected) exposure to COVID-19; F60.3 Borderline personality disorder; F43.10 Post-traumatic stress disorder, unspecified; E11.9 Type 2 diabetes mellitus without complications; E78.5 Hyperlipidemia, unspecified; F17.200 Nicotine dependence, unspecified, uncomplicated; Z91.52 Personal history of nonsuicidal self-harm; Z79.02 Long term (current) use of antithrombotics/antiplatelets; Z79.899 Other long term (current) drug therapy; Y93.9 Activity, unspecified; Y92.049 Unspecified place in boarding-house as the place of occurrence of the external cause; Y99.9 Unspecified external cause status
CPT/HCPCS: 80307; 81025; 87635; 99283

== ENCOUNTER 2021-10-22 19:13 | Emergency (ER) | payer MEDICARE, MEDICAID, SELFPAY ==
[2021-10-22 19:26] VITALS: BP 167/111; PULSE 108; RESP 18; TEMP 36.2; O2SAT 97; BMI 35.7
[2021-10-22 20:09] LABS: COVID-19 Test Negative (Negative)
[2021-10-22 20:11] LABS: Amphetamine Screen Urine Not Detected (Not Detect); Barbiturates, Urine Not Detected (Not Detect); Benzodiazepines Screen Urine Not Detected (Not Detect); Cannabinoid Screen Urine Not Detected (Not Detect); Cocaine Screen Urine Not Detected (Not Detect); Fentanyl, urine Not Detected (Not Detect); Opiate Screen Urine Not Detected (Not Detect); Phencyclidine Screen Urine Not Detected (Not Detect)
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
[2021-10-22] MEDS: clonazePAM 1 MG TABLET PO (21:20)
--- NOTE | 2021-10-22 22:35 | PC.NURSE ---
Patient resting comfortably in bed. Awaiting n eval.
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
[2021-10-23 08:33] VITALS: BP 151/99; PULSE 90; TEMP 36.6; O2SAT 98
--- NOTE | 2021-10-23 09:32 | PC.NURSE ---
list of medications given to provider to order for today before pt is discharghed, pt is starting to feel anxiouse.
[2021-10-23] MEDS: Omeprazole 20 MG CAPSULE.DR PO (10:09)
[2021-10-23] MEDS: metFORMIN HCl 500 MG TABLET PO (10:09)
[2021-10-23] MEDS: FLUoxetine HCl 20 MG CAPSULE 40 MG PO (10:09)
[2021-10-23] MEDS: cloNIDine HCL 0.1 MG TABLET PO (10:21)
== END 2021-10-23 10:27 | disposition home or self-care (01) ==
PROVIDERS: Emergency Provider Emergency Medicine
DX: R45.851 Suicidal ideations (principal); F33.9 Major depressive disorder, recurrent, unspecified; F41.9 Anxiety disorder, unspecified; F43.10 Post-traumatic stress disorder, unspecified; F60.3 Borderline personality disorder; F17.200 Nicotine dependence, unspecified, uncomplicated; Z20.822 Contact with and (suspected) exposure to COVID-19; Z91.51 Personal history of suicidal behavior; Z79.899 Other long term (current) drug therapy
CPT/HCPCS: 80307; 87635; 99284; 99285

== ENCOUNTER 2021-10-27 23:08 | Emergency (ER) | payer MEDICARE, MEDICAID, SELFPAY ==
[2021-10-27 23:18] VITALS: BP 146/90; PULSE 87; RESP 20; TEMP 37.1; O2SAT 99; BMI 39.9
--- NOTE | 2021-10-27 23:21 | ED.PSYCH ---
HPI - Psych General Chief Complaint: Psychiatric Symptoms <Sy Allison MD - Last Filed: 10/27/21 23:28> Stated Complaint: crisis <Sy Allison MD - Last Filed: 10/27/21 23:28> Time Seen by Provider: 10/27/21 23:20 <Sy Allison MD - Last Filed: 10/27/21 23:28> Source: patient <Sy Allison MD - Last Filed: 10/27/21 23:28> Mode of arrival: ambulatory <Sy Allison MD - Last Filed: 10/27/21 23:28> Limitations: no limitations <Sy Allison MD - Last Filed: 10/27/21 23:28> History of Present Illness HPI Narrative: Lucita is 45-year-old female well known to our ED staff for frequent ED visit, past medical history is significant for borderline personality disorder, depression, PTSD. Patient has auditory hallucination to hurt herself, patient stated that she lost her best friend 2 days ago and now she is grieving and feeling depressed was feeling of overdose and hurt herself. <Sy Allison MD - Last Filed: 10/27/21 23:28> Related Data Home Medications: Home Medications Medication Instructions Recorded Confirmed polyethylene glycol 3350 17 gram 17 g PO DAILY PRN 02/12/21 10/27/21 oral powder packet (Miralax) atorvastatin 10 mg tablet 1 tab PO DAILY 05/29/21 10/27/21 ferrous sulfate 325 mg (65 mg 1 tab PO DAILY 05/29/21 10/27/21 iron) tablet,delayed release fluticasone propionate 110 2 puff INHALATION BID 05/29/21 10/27/21 mcg/actuation HFA aerosol inhaler (Flovent HFA) metformin 500 mg tablet 1 tab PO BID 05/29/21 10/27/21 montelukast 10 mg tablet 1 tab PO BEDTIME 05/29/21 10/27/21 norethindrone (contraceptive) 0.35 0.35 mg PO DAILY 05/29/21 10/27/21 mg tablet (Deblitane) pantoprazole 40 mg tablet,delayed 1 tab PO BID@0630,1630 05/29/21 10/27/21 release verapamil 240 mg tablet,extended 1 tab PO BEDTIME 05/29/21 10/27/21 release albuterol sulfate 90 mcg/actuation 2 puff INHALATION Q4H PRN 06/15/21 10/27/21 aerosol inhaler (Ventolin HFA) clonidine HCl 0.1 mg tablet 0.1 mg PO BID@0830,1430 08/26/21 10/27/21 ibuprofen 600 mg tablet 600 mg PO Q6H PRN 09/19/21 10/27/21 Previous Rx's Medication Instructions Recorded benztropine 0.5 mg tablet 0.5 mg PO BID PRN 30 Days #60 tab 07/27/21 hydroxyzine HCl 50 mg tablet 50 mg PO QID PRN 30 Days #120 tab 07/27/21 chlorpromazine 25 mg tablet 50 mg PO QID 30 Days #240 tab 08/15/21 nicotine 21 mg/24 hr daily 21 mg TRANSDERMAL DAILY PRN 28 09/06/21 transdermal patch Days #28 ea chlorpromazine 25 mg tablet 75 mg PO Q4H PRN 30 Days #300 tab 09/29/21 clonazepam 0.5 mg tablet 0.5 mg PO QID PRN 30 Days #60 tab 09/29/21 fluoxetine 20 mg capsule 40 mg PO DAILY 30 Days #60 cap 09/29/21 nystatin 100,000 unit/gram topical 1 appl TOPICAL BID 15 Days #5 g 09/29/21 cream lithium carbonate 450 mg 450 mg PO BEDTIME 30 Days #30 tab 10/18/21 tablet,extended release mirtazapine 7.5 mg tablet 7.5 mg PO BEDTIME MRX1 30 Days #60 10/18/21 tab prazosin 1 mg capsule 4 mg PO BEDTIME 30 Days #120 cap 10/18/21 trazodone 150 mg tablet 100 mg PO BEDTIME PRN 30 Days #30 10/18/21 tab <Sy Allison MD - Last Filed: 10/27/21 23:28> Allergies/Adverse Reactions: Allergies Allergy/AdvReac Type Severity Reaction Status Date / Time Fish Containing Products Allergy Severe ANAPHYLAXIS Verified 08/18/21 18:18 codeine [Codeine] Allergy Unknown RASH Verified 08/18/21 18:18 Penicillins Allergy Unknown RASH Verified 08/18/21 18:18 prednisone [Prednisone] Allergy Unknown RASH Verified 08/18/21 18:18 Sulfa (Sulfonamide Allergy Unknown RASH Verified 08/18/21 18:18 Antibiotics) [Sulfa (Sulfonamides)] azithromycin [AZITHROMYCIN] AdvReac Severe RASH Verified 08/18/21 18:18 nicotine AdvReac Unknown HEART Verified 08/18/21 18:18 PALPITATION TO NICOTINE GUM Seafood Allergy Severe ANAPHYLAXIS Uncoded 07/31/21 20:43 From Geodon Allergy Unknown DYSURIA, Uncoded 07/31/21 20:43 RASH <Sy Allison MD - Last Filed: 10/27/21 23:28> Review of Systems Review of Systems: All other systems are reviewed and are negative Constitutional: Reports as per HPI and Reports no additional constitutional complaints Eyes: Reports as per HPI and Reports no additional eye complaints Reports system reviewed and no additional complaints, except as documented Cardiovascular: Reports as per HPI and Reports no additional cardiovascular complaints Respiratory: Reports as per HPI and Reports no additional respiratory complaints Gastrointestinal: Reports as per HPI and Reports no additional gastrointestinal complaints Genitourinary: Reports no additional female genitourinary complaints Musculoskeletal: Reports no additional musculoskeletal complaints Skin/Breast: Reports system reviewed and no additional complaints, except as docu Psychiatric: Reports no additional psychiatric complaints Endocrine: Reports no additional endocrine complaints Hematologic/Lymphatic: Reports no additional hematologic/lymphatic complaints Allergic/Immunologic: Reports no additional allergic/immunologic complaints Reports system reviewed and no additional complaints, except as documented and Reports Abnormal speech present <Sy Allison MD - Last Filed: 10/27/21 23:28> [facility] Past Medical History Medical History: Medical History Bronchitis Diabetes type 2, controlled GERD (gastroesophageal reflux disease) Hyperlipidemia MDD (major depressive disorder), recurrent episode, severe Mood disorder Overdose PTSD (post-traumatic stress disorder) <Sy Allison MD - Last Filed: 10/27/21 23:28> Social History Social History: Social History 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: None 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 Other:: Patient lives in skilled nursing. 4 in total live in skilled nursing. Housing: Other Housing Other:: correction Do you presently have visiting nurse or other home services: No (Medication administered by skilled nursing staff) Unable to assess alcohol history related to: Unknown Alcohol intake: never Patient Tobacco Use Status: Current everyday Tobacco user Tobacco use type: Cigarette Cigarette Packs Per Day: 1 Cigarettes Per Day: 20 Years Smoked: 20 e-Cigarette/Vaping Use: Never Used Second Hand Smoke Exposure: Yes Substance Use Type: Caffiene Advance Directives: No Patient : No service: No Sexual orientation: Don't Know <Sy Allison MD - Last Filed: 10/27/21 23:28> Physical Exam Vital Signs: Vital Signs: Last Vital Signs Temp 98.7 F 10/27/21 23:18 Pulse 87 10/27/21 23:18 Resp 20 10/27/21 23:18 BP 146/90 H 10/27/21 23:18 Pulse Ox 99 10/27/21 23:18 BMI result Body Mass Index 39.9 vital signs have been reviewed as appeared to be correct. Blood pressure normal. Heart rate normal. Respiration rate normal. Temperature normal. Oxygen saturation normal. <Sy Allison MD - Last Filed: 10/27/21 23:28> Vital Signs: Last Vital Signs Temp 98.7 F 10/27/21 23:18 Pulse 87 10/27/21 23:18 Resp 20 10/27/21 23:18 BP 146/90 H 10/27/21 23:18 Pulse Ox 99 10/27/21 23:18 BMI result Body Mass Index 39.9 <TIMI Costello - Last Filed: 10/28/21 10:54> Appearance: Alert. Oriented X3. No acute distress. Head: Normal external exam. Normocephalic. Atraumatic. No Harper signs noted. No raccoon eyes noted Eyes: PERRLA. EOMI. Conjunctiva and sclera normal. Eyelids normal. ENT: TM's Normal. Pharynx normal. Uvula midline. Moist mucous membranes. No trismus noted. No drooling noted. No muffled voice noted. Neck: Normal inspection. Neck supple. FROM. No adenopathy. Thyroid Normal. No meningeal signs. No neck mass noted. CVS: Normal heart rate and rhythm. Heart sound normal. No murmurs noted. Pulses normal throughout. Respiratory: No respiratory distress. Painless inspiration. Breath sounds normal. No wheezes/rales/rhonchi noted. Chest nontender. No accessory muscle usage noted or decreased air movement noted. Abdomen: Soft and nontender. Bowel sounds normal in all 4 quadrants. No distention noted. No organomegaly noted. No visible injury noted. Back: No CVA tenderness. Full range of motion noted. Skin: Skin warm and dry. Normal skin color. Normal skin turgor. No rashes/lesions/lacerations noted. Extremities: No lower extremity edema. Extremities exhibit normal range of motion. Extremities nontender. Neuro: Oriented X 3. Cranial nerve exam: II-XII are grossly intact No motor deficit. No sensory deficit. Reflexes normal. Patient Appearance: Appropriate Patient Orientation: Person, Place, Time and Situation Level of Consciousness: Awake, Appropriate and Alert Patient Behavior: Talkative, Cooperative. Mood Description: Depressed And suicidal Affect Description: Flat. Patient Cognition Impaired: No Ability to Follow Directions: Good Speech Pattern: Spontaneous Speech Memory Description: Intact Hallucinations: Not present. Delusions: Not Present Thought Process: Logical. Thought Content: Unremarkable Depressive Symptoms: Increased anxiety. Judgement: poor. <Sy Allison MD - Last Filed: 10/27/21 23:28> Course Course Course Narrative: assessment and plan. 45-year-old female with borderline personality with extensive past medical history of depression. BHN evaluation in the a.m. <Sy Allison MD - Last Filed: 10/27/21 23:28> Reevaluation(s) Reevaluation #1: Physician observation started at 23:27 . Patient placed in physician observation because the patient needed more time for BHN evaluation and the need for placement patient's vital sign were stable, patient is alert and oriented , neuro exam unchanged, unremarkable rest of physical exam. <Sy Allison MD - Last Filed: 10/27/21 23:28> Time: 23:27 <Sy Allison MD - Last Filed: 10/27/21 23:28> Reevaluation #2: Patient well known to Behavioral Health who lives at a skilled nursing came in with auditory hallucinations to hurt herself. Patient felt overwhelmed by the anniversary of her mom's and a recent friend's . Patient is cleared to go home, she was seen by care team Jeffrey, who stated she is not acting on her auditory hallucinations instructing for self-harm. She has not self harmed. She will be discharged to skilled nursing where she has 24 hour observation and supervision <TIMI Costello - Last Filed: 10/28/21 10:54> Time: 10:52 <TIMI Costello - Last Filed: 10/28/21 10:54> MDM - Psych Lab Data Labs: Lab Results 10/27/21 10/28/21 Range/Units Unknown 00:50 Urine Opiates Screen Not Detected (Not Detect) Urine Fentanyl Screen Not Detected (Not Detect) Ur Barbiturates Screen Not Detected (Not Detect) Ur Phencyclidine Scrn Not Detected (Not Detect) Ur Amphetamines Screen Not Detected (Not Detect) U Benzodiazepines Scrn Not Detected (Not Detect) Urine Cocaine Screen Not Detected (Not Detect) U Marijuana (THC) Screen Not Detected (Not Detect) COVID-19 (NICK) Negative (Negative) COVID-19 Clin Com See Note <Sy Allison MD - Last Filed: 10/27/21 23:28> Lab Results 10/27/21 10/28/21 Range/Units Unknown 00:50 Urine Opiates Screen Not Detected (Not Detect) Urine Fentanyl Screen Not Detected (Not Detect) Ur Barbiturates Screen Not Detected (Not Detect) Ur Phencyclidine Scrn Not Detected (Not Detect) Ur Amphetamines Screen Not Detected (Not Detect) U Benzodiazepines Scrn Not Detected (Not Detect) Urine Cocaine Screen Not Detected (Not Detect) U Marijuana (THC) Screen Not Detected (Not Detect) COVID-19 (NICK) Negative (Negative) COVID-19 Clin Com See Note <TIMI Costello - Last Filed: 10/28/21 10:54> Discharge Plan Discharge Clinical Impression: Depression, Borderline personality disorder, PTSD (post-traumatic stress disorder) <Sy Allison MD - Last Filed: 10/27/21 23:28> Prescriptions: No Action polyethylene glycol 3350 [Miralax] 17 gram Powder In Packet 17 g PO DAILY PRN (Reason: Constipation) RF: 0 metformin 500 mg tablet 1 tab PO BID RF: 0 atorvastatin 10 mg tablet 1 tab PO DAILY RF: 0 pantoprazole 40 mg tablet,delayed release (DR/EC) 1 tab PO BID@0630,1630 RF: 0 verapamil 240 mg tablet extended release 1 tab PO BEDTIME RF: 0 montelukast 10 mg tablet 1 tab PO BEDTIME RF: 0 ferrous sulfate 325 mg (65 mg iron) tablet,delayed release (DR/EC) 1 tab PO DAILY RF: 0 Flovent HFA 110 mcg/actuation HFA aerosol inhaler 2 puff inhalation BID RF: 0 norethindrone (contraceptive) [Deblitane] 0.35 mg Tablet 0.35 mg PO DAILY RF: 0 albuterol sulfate [Ventolin HFA] 90 mcg/actuation HFA aerosol inhaler 2 puff inhalation Q4H PRN (Reason: Shortness Of Breath) RF: 0 nicotine 21 mg/24 hr Patch 24 Hour 21 mg transdermal DAILY PRN (Reason: smoking cessation) 28 Days Qty: 28 RF: 0 benztropine 0.5 mg Tablet 0.5 mg PO BID PRN (Reason: EPS) 30 Days Qty: 60 RF: 0 hydroxyzine HCl 50 mg Tablet 50 mg PO QID PRN (Reason: Anxiety) 30 Days Qty: 120 RF: 0 chlorpromazine 25 mg Tablet 50 mg PO QID 30 Days Qty: 240 RF: 0 clonidine HCl 0.1 mg tablet 0.1 mg PO BID@0830,1430 RF: 0 ibuprofen 600 mg Tablet 600 mg PO Q6H PRN (Reason: Mild Pain (Scale Score 1-4)) RF: 0 chlorpromazine 25 mg Tablet 75 mg PO Q4H PRN (Reason: agitation) 30 Days Qty: 300 RF: 0 nystatin 100,000 unit/gram Cream 1 appl topical BID 15 Days Qty: 5 RF: 0 fluoxetine 20 mg Capsule 40 mg PO DAILY 30 Days Qty: 60 RF: 0 clonazepam 0.5 mg Tablet 0.5 mg PO QID PRN (Reason: anxiety/AH) 30 Days Qty: 60 RF: 0 prazosin 1 mg Capsule 4 mg PO BEDTIME 30 Days Qty: 120 RF: 0 lithium carbonate 450 mg Tablet Extended Release 450 mg PO BEDTIME 30 Days Qty: 30 RF: 0 mirtazapine 7.5 mg Tablet 7.5 mg PO BEDTIME MRX1 30 Days Qty: 60 RF: 0 trazodone 150 mg tablet 100 mg PO BEDTIME PRN (Reason: insomnia) 30 Days Qty: 30 RF: 0 <Sy Allison MD - Last Filed: 10/27/21 23:28>
[2021-10-28 00:47] LABS: Amphetamine Screen Urine Not Detected (Not Detect); Barbiturates, Urine Not Detected (Not Detect); Benzodiazepines Screen Urine Not Detected (Not Detect); Cannabinoid Screen Urine Not Detected (Not Detect); Cocaine Screen Urine Not Detected (Not Detect); Fentanyl, urine Not Detected (Not Detect); Opiate Screen Urine Not Detected (Not Detect); Phencyclidine Screen Urine Not Detected (Not Detect)
[2021-10-28 01:13] LABS: COVID-19 Test Negative (Negative); IDNOW Serial# 9DD0AD1C
--- NOTE | 2021-10-28 06:24 | PC.NURSE ---
Patient slept through the night, no distress observed/reported, behavior appropriate, med rec completed/pending provider's approval, patient will evaluated by care team to decide further plan, VSS, will continue to monitor.
--- NOTE | 2021-10-28 07:23 | PC.NURSE ---
patient appears to remain asleep at present respirations are even and unlabored, patient appears in no distress
--- NOTE | 2021-10-28 10:44 | MHC.CARE ---
Pt is a 45 y/o single, , Malagasy speaking, female, who is previously known to the CARE Team through prior assessments, ED visits and in patient stays.? Yesterday, she was transported to this facility via EMS after endorsing urges to self-harm and command auditory hallucinations.? Pt has been medically cleared and is being assessed by the CARE Team to determine appropriate treatment recommendations. Pt has an extensive hx of inpt hospitalizations, and is known to engage in unsafe behavior and is unable to effectively self-preserve in the community when decompensated. Past documented hx of Major depressive d/o,? PTSD, and Borderline personality d/o. Pt has a hx of self-harm and suicide attempts. Pt is alert and oriented x4 and is assessed by CARE Team in her room in the behavioral health pod.? Pt is mildly disheveled in appearance and appears older than her stated age.? Pt's eye contact was and speech is within normal limits.? She reports mild difficulty sleeping, but reports having had a restful sleep last night.? She reports her appetite as good, having had breakfast this morning.? She describes her mood as ?Sad? regarding the sudden loss of her friend but stated that she is trying to focus on the ?Positives? and ?Fun times? of their friendship.? Pt's affect is variable, emoting appropriately.? She reports hearing voices but that the voices are ?manageable?.? She denies SI, , HI and self-harm urges.? No thoughts of harm to others.? Insight, judgement, memory and concentration appear good. Pt's functioning today appears to be at her baseline.? She reports still experiencing auditory hallucinations though she reports ?The voices are manageable.?? At baseline, pt struggles with coping, and does experience auditory hallucinations but is able to manage them.? Pt stated that she had been working towards establishing some positive structure within her day.? She has established a daily schedule, has been keeping her room at the assisted clean, making her bed daily ?First thing in the morning?, and has been focusing on writing positive affirmations in her journal.? Pt stated that she was ?overwhelmed yesterday? and had experienced a great deal of difficulty ?coping? after hearing that her ?best friend? of 25 years had been found in her apartment.? She also cites the approaching anniversary of her Mother?s as a significant stressor.? CARE Team has contacted the assisted, pt is able to return. The plan is for pt to be discharged back to the assisted.? CARE Team will secure a ride for pt.? This disposition was discussed with and agreed upon by CARE Lithographic Press Operator Pop MILLER, ED Provider Anika, and pt?s nurse WALKER Still. CARE Team contacted the assisted to advise them that pt will be discharged back to the assisted.? CARE Team with secure a Lyft for pt. F33.0 - Mild major depressive d/o, recurrent episode, F43.10 - Post Traumatic Stress d/o, F60.3 - Borderline personality d/o
== END 2021-10-28 11:09 | disposition home or self-care (01) ==
PROVIDERS: Emergency Provider Emergency Medicine
DX: F32.A Depression, unspecified (principal); F60.3 Borderline personality disorder; F43.10 Post-traumatic stress disorder, unspecified; Z20.822 Contact with and (suspected) exposure to COVID-19; R44.0 Auditory hallucinations; E11.9 Type 2 diabetes mellitus without complications; E78.5 Hyperlipidemia, unspecified; F17.200 Nicotine dependence, unspecified, uncomplicated; Z91.52 Personal history of nonsuicidal self-harm; Z79.02 Long term (current) use of antithrombotics/antiplatelets; Z79.899 Other long term (current) drug therapy
CPT/HCPCS: 80307; 87635; 99283; 99285

== ENCOUNTER 2021-10-28 15:20 | Emergency (ER) | payer MEDICARE, MEDICAID, SELFPAY ==
[2021-10-28 15:25] VITALS: BP 151/93; PULSE 91; RESP 18; TEMP 36.7; O2SAT 98; BMI 34.9
--- NOTE | 2021-10-28 15:33 | ED_ITS ---
HPI - Psych General Chief Complaint: Psychiatric Symptoms Stated Complaint: crisis Time Seen by Provider: 10/28/21 15:33 Source: patient and EMS Mode of arrival: EMS Limitations: no limitations History of Present Illness HPI Narrative: 45-year-old female with history of PTSD, borderline personality disorder, depression with several inpatient psychiatric admissions for SI and cutting most recently earlier this month for she was initiated on lithium who presents back to the ER 10 days after discharge with recurrent SI, cutting to her arms and plan to overdose or cut herself. Patient reports using a sharp piece of glass to cut her left forearm pretty deep today prompting ER evaluation. Patient reports a lifelong friend of hers was found in her appointment two days ago. Tomorrow is also the anniversary for her mother who in her arms. She reports hearing voices telling her to kill herself and she also independently feels like she wants to kill herself, which she is not her baseline. She reports needing to be admitted for inpatient treatment. MD complaint: suicidal ideation and feels depressed Onset (ago): day(s) (2) Duration: constant and getting worse History of same: Yes Relieving factors: none Exacerbating factors: other ( Life stressors) Context: significant life stressor Associated psychiatric symptoms: depression, suicidal ideation and auditory hallucinations Associated symptoms: denies other symptoms Treatments prior to arrival: placed on mental health hold If self harm: admits thoughts of self harm, has plan, has acted on plan and self-inflicted trauma Details of plan: cutting or overdose. Related Data Home Medications Medication Instructions Recorded Confirmed polyethylene glycol 3350 17 gram 17 g PO DAILY PRN 02/12/21 10/28/21 oral powder packet (Miralax) atorvastatin 10 mg tablet 1 tab PO DAILY 05/29/21 10/28/21 ferrous sulfate 325 mg (65 mg 1 tab PO DAILY 05/29/21 10/28/21 iron) tablet,delayed release fluticasone propionate 110 2 puff INHALATION BID 05/29/21 10/28/21 mcg/actuation HFA aerosol inhaler (Flovent HFA) metformin 500 mg tablet 1 tab PO BID 05/29/21 10/28/21 montelukast 10 mg tablet 1 tab PO BEDTIME 05/29/21 10/28/21 norethindrone (contraceptive) 0.35 0.35 mg PO DAILY 05/29/21 10/27/21 mg tablet (Deblitane) pantoprazole 40 mg tablet,delayed 1 tab PO BID@0630,1630 05/29/21 10/28/21 release verapamil 240 mg tablet,extended 1 tab PO BEDTIME 05/29/21 10/28/21 release albuterol sulfate 90 mcg/actuation 2 puff INHALATION Q4H PRN 06/15/21 10/28/21 aerosol inhaler (Ventolin HFA) clonidine HCl 0.1 mg tablet 0.1 mg PO BID@0830,1430 08/26/21 10/28/21 ibuprofen 600 mg tablet 600 mg PO Q6H PRN 09/19/21 10/28/21 Previous Rx's Medication Instructions Recorded benztropine 0.5 mg tablet 0.5 mg PO BID PRN 30 Days #60 tab 07/27/21 hydroxyzine HCl 50 mg tablet 50 mg PO QID PRN 30 Days #120 tab 07/27/21 chlorpromazine 25 mg tablet 50 mg PO QID 30 Days #240 tab 08/15/21 nicotine 21 mg/24 hr daily 21 mg TRANSDERMAL DAILY PRN 28 09/06/21 transdermal patch Days #28 ea chlorpromazine 25 mg tablet 75 mg PO Q4H PRN 30 Days #300 tab 09/29/21 clonazepam 0.5 mg tablet 0.5 mg PO QID PRN 30 Days #60 tab 09/29/21 fluoxetine 20 mg capsule 40 mg PO DAILY 30 Days #60 cap 09/29/21 nystatin 100,000 unit/gram topical 1 appl TOPICAL BID 15 Days #5 g 09/29/21 cream lithium carbonate 450 mg 450 mg PO BEDTIME 30 Days #30 tab 10/18/21 tablet,extended release mirtazapine 7.5 mg tablet 7.5 mg PO BEDTIME MRX1 30 Days #60 10/18/21 tab prazosin 1 mg capsule 4 mg PO BEDTIME 30 Days #120 cap 10/18/21 trazodone 150 mg tablet 100 mg PO BEDTIME PRN 30 Days #30 10/18/21 tab Allergies Allergy/AdvReac Type Severity Reaction Status Date / Time Fish Containing Products Allergy Severe ANAPHYLAXIS Verified 08/18/21 18:18 codeine [Codeine] Allergy Unknown RASH Verified 08/18/21 18:18 Penicillins Allergy Unknown RASH Verified 08/18/21 18:18 prednisone [Prednisone] Allergy Unknown RASH Verified 08/18/21 18:18 Sulfa (Sulfonamide Allergy Unknown RASH Verified 08/18/21 18:18 Antibiotics) [Sulfa (Sulfonamides)] azithromycin [AZITHROMYCIN] AdvReac Severe RASH Verified 08/18/21 18:18 nicotine AdvReac Unknown HEART Verified 08/18/21 18:18 PALPITATION TO NICOTINE GUM Seafood Allergy Severe ANAPHYLAXIS Uncoded 07/31/21 20:43 From Geodon Allergy Unknown DYSURIA, Uncoded 07/31/21 20:43 RASH Review of Systems Review of Systems: Constitutional: No Fever, No Chills ENT/Mouth: No sore throat, No Rhinorrhea, No Swallowing Difficulty Cardiovascular: No Chest Pain, No SOB Respiratory: No Cough, No Sputum, No Wheezing, No dyspnea Gastrointestinal: No Nausea, No Vomiting, No Diarrhea, No abdominal Pain, No H ematochezia, No Melena Genitourinary: No Dysuria, No Urinary Frequency, No Hematuria Musculoskeletal: No joint pain, No Myalgias Skin: +Skin Lesions, No rash Neuro: No Weakness, No Numbness, No Dizziness, No Headache Psych: + Anxiety/Panic, +Depression, +SI, +auditory hallucinations, no visual hallucinations. Heme/Lymph: No Bruising, No Lymphadenopathy PMFSH Past Medical History Medical History Bronchitis Diabetes type 2, controlled GERD (gastroesophageal reflux disease) Hyperlipidemia MDD (major depressive disorder), recurrent episode, severe Mood disorder Overdose PTSD (post-traumatic stress disorder) Social History Social History 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: None 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 Other:: [facility] 4 in total live [facility]. Housing: Other Housing Other:: [facility] Do you presently have visiting nurse or other home services: No (Medication administered by [facility] staff) Unable to assess alcohol history related to: Unknown Alcohol intake: never Patient Tobacco Use Status: Current everyday Tobacco user Tobacco use type: Cigarette Cigarette Packs Per Day: 1 Cigarettes Per Day: 20 Years Smoked: 20 e-Cigarette/Vaping Use: Never Used Second Hand Smoke Exposure: Yes Substance Use Type: Caffiene Advance Directives: No Advance Directives Information Provided: Yes Patient : No service: No Sexual orientation: Don't Know Physical Exam Vital Signs: Vital Signs: Last Vital Signs Temp 98.1 F 10/28/21 15:25 Pulse 91 10/28/21 15:25 Resp 18 10/28/21 15:25 BP 151/93 H 10/28/21 15:25 Pulse Ox 98 10/28/21 15:25 BMI result Body Mass Index 34.9 Appearance: Alert. Oriented X3. No acute distress. Eyes: Pupils equal, round and reactive to light. ENT: Pharynx normal. Neck: Normal inspection. Neck supple. CVS: Normal heart rate and rhythm. Pulses normal. Respiratory: No respiratory distress. Breath sounds normal. Abdomen: Soft and nontender. +BS x4 Skin: Skin warm and dry. Normal skin color. Normal skin turgor. No rashes. Extremities: No lower extremity edema. Bilateral forearms with well healed linear scars consistent with prior self-cutting. there is a 3cm superficial linear laceration in the distal left forearm actly oozing from the medial end. no surrounding erythema. nontender. no FB. Neuro/psych: Oriented X 3. No motor deficit. No sensory deficit. CN II-XII intact. Makes eye contact. Flat affect, poor judgement and insight. +SI, +AH Course Course Course Narrative: 45-year-old female well known to this hospital who was recently discharged 10 days ago on the prescribed lithium presents back to the ER with SI, self-harm with left forearm laceration the setting of significant life stressors. Her friend just 2 days ago in her mother's anniversary is tomorrow. She feels like she needs to be inpatient at this time. Will check lithium level, basic lab workup and have and see her. Left forearm laceration closed with Dermabond and Steri-Strips. Reevaluation(s) Reevaluation #1: Medical workup unremarkable. [place] level still a little bit low. Home meds reordered. Will place and physician observation at this time. Physician observation started at 6:22pm. Patient placed in physician observation because patient is awaiting [facility] evaluation for the possible need of inpatient psych admission. At the time observation was started patient's vital signs were stable. Patient is alert and oriented. Neuro exam is non-focal. CV: RRR and lungs are clear. Will continue to monitor. Reevaluation #2: Patient seen and evaluated by crisis team. At this time they are recommending [facility] to the [facility]. This is patient's baseline behavior. Coping mechanisms were discussed to handle her ongoing life stres sors. She was encouraged follow-up with her psychiatrist and counselor soon as possible. Stable for discharge back to the [facility]. MDM - Psych Lab Data Result diagrams: 10/28/21 16:50 10/28/21 16:50 Labs: Lab Results 10/28/21 10/28/21 10/28/21 Range/Units 16:08 16:08 16:25 WBC (4.8-10.8) X10*3/uL RBC (4.20-5.50) X10*6/uL Hgb (12.0-16.0) g/dl Hct (37.0-47.0) % MCV (80.0-98.0) fL MCH (27.0-33.0) pg MCHC (31.0-35.0) g/dl RDW (11.0-16.0) % Plt Count (160-400) X10*3/uL MPV (9.4-12.3) fL Immature Gran % (Auto) (0.0-0.4) % Neut % (Auto) (45-73) % Lymph % (Auto) (20-40) % [place] % (Auto) (2-11) % Eos % (Auto) (0-4) % Baso % (Auto) (0-2) % Lymph # (Auto) (1.2-4.9) X10*3/uL [place] # (Auto) (0.1-1.2) X10*3/uL Eos # (Auto) (0.0-0.4) X10*3/uL Baso # (Auto) (0.0-0.2) X10*3/uL Abs Immat Gran (auto) (0.00-0.03) X10*3/uL Absolute Neuts (auto) (2.0-8.3) x10*3/uL Absolute Nucleated RBC (0.0-0.012) X10*3/uL Nucleated RBC % (auto) (0.0-0.2) /100WBC Sodium (135-145) mmol/L Potassium (3.3-5.1) mmol/L Chloride (96-108) mmol/L Carbon Dioxide (22-29) mmol/L Anion Gap (12-20) BUN (9-16) mg/dL Creatinine (0.5-1.4) mg/dL Estim Creat Clear Calc Estimated GFR Random Glucose (60-115) mg/dL Calcium (8.4-10.2) mg/dL Magnesium (1.6-2.6) mg/dL Total Bilirubin (0.0-1.0) mg/dL Direct Bilirubin (0.0-0.5) mg/dL AST (5-31) U/L ALT (0-31) U/L Alkaline Phosphatase (39-117) U/L Total Protein (6.5-8.0) g/dL Albumin (3.5-5.0) g/dL Urine Color STRAW Urine Appearance CLEAR Urine pH 6.0 (5.0-8.0) Ur Specific [place] <= 1.005 (1.005-1.025) Urine Protein NEG (NEG-TRACE) MG/DL Urine Glucose (UA) NEG (NEG) MG/DL Urine Ketones NEG (NEG) MG/DL Urine Blood NEG (NEG) Urine Nitrite NEG (NEG) Ur Leukocyte Esterase NEG (NEG) Urine Opiates Screen Not Detected (Not Detect) Urine Fentanyl Screen Not Detected (Not Detect) Ur Barbiturates Screen Not Detected (Not Detect) Ur Phencyclidine Scrn Not Detected (Not Detect) Ur Amphetamines Screen Not Detected (Not Detect) U Benzodiazepines Scrn Not Detected (Not Detect) [place] (0.60-1.20) mmol/L Urine Cocaine Screen Not Detected (Not Detect) U Marijuana (THC) Screen Not Detected (Not Detect) Ethyl Alcohol mg/dL COVID-19 (NICK) Negative (Negative) COVID-19 Clin Com See Note 10/28/21 10/28/21 10/28/21 Range/Units 16:50 16:50 16:50 WBC 7.5 (4.8-10.8) X10*3/uL RBC 3.91 L (4.20-5.50) X10*6/uL Hgb 11.9 L (12.0-16.0) g/dl Hct 35.5 L (37.0-47.0) % MCV 90.8 (80.0-98.0) fL MCH 30.4 (27.0-33.0) pg MCHC 33.5 (31.0-35.0) g/dl RDW 12.3 (11.0-16.0) % Plt Count 299 (160-400) X10*3/uL MPV 9.3 L (9.4-12.3) fL Immature Gran % (Auto) 0.5 H (0.0-0.4) % Neut % (Auto) 65.2 (45-73) % Lymph % (Auto) 20.5 (20-40) % [place] % (Auto) 7.3 (2-11) % Eos % (Auto) 6.1 H (0-4) % Baso % (Auto) 0.4 (0-2) % Lymph # (Auto) 1.5 (1.2-4.9) X10*3/uL [place] # (Auto) 0.6 (0.1-1.2) X10*3/uL Eos # (Auto) 0.5 H (0.0-0.4) X10*3/uL Baso # (Auto) 0.0 (0.0-0.2) X10*3/uL Abs Immat Gran (auto) 0.04 H (0.00-0.03) X10*3/uL Absolute Neuts (auto) 4.9 (2.0-8.3) x10*3/uL Absolute Nucleated RBC 0.000 (0.0-0.012) X10*3/uL Nucleated RBC % (auto) 0.0 (0.0-0.2) /100WBC Sodium 132 L (135-145) mmol/L Potassium 4.2 (3.3-5.1) mmol/L Chloride 99 (96-108) mmol/L Carbon Dioxide 24 (22-29) mmol/L Anion Gap 13 (12-20) BUN 10 (9-16) mg/dL Creatinine 0.78 (0.5-1.4) mg/dL Estim Creat Clear Calc 106.1 Estimated GFR > 60 Random Glucose 120 H (60-115) mg/dL Calcium 9.6 (8.4-10.2) mg/dL Magnesium 1.8 (1.6-2.6) mg/dL Total Bilirubin 0.2 (0.0-1.0) mg/dL Direct Bilirubin < 0.2 (0.0-0.5) mg/dL AST 22 (5-31) U/L ALT 21 (0-31) U/L Alkaline Phosphatase 99 (39-117) U/L Total Protein 6.8 (6.5-8.0) g/dL Albumin 4.0 (3.5-5.0) g/dL Urine Color Urine Appearance Urine pH (5.0-8.0) Ur Specific [place] (1.005-1.025) Urine Protein (NEG-TRACE) MG/DL Urine Glucose (UA) (NEG) MG/DL Urine Ketones (NEG) MG/DL Urine Blood (NEG) Urine Nitrite (NEG) Ur Leukocyte Esterase (NEG) Urine Opiates Screen (Not Detect) Urine Fentanyl Screen (Not Detect) Ur Barbiturates Screen (Not Detect) Ur Phencyclidine Scrn (Not Detect) Ur Amphetamines Screen (Not Detect) U Benzodiazepines Scrn (Not Detect) [place] 0.26 L (0.60-1.20) mmol/L Urine Cocaine Screen (Not Detect) U Marijuana (THC) Screen (Not Detect) Ethyl Alcohol mg/dL COVID-19 (NICK) (Negative) COVID-19 Clin Com 10/28/21 Range/Units 16:50 WBC (4.8-10.8) X10*3/uL RBC (4.20-5.50) X10*6/uL Hgb (12.0-16.0) g/dl Hct (37.0-47.0) % MCV (80.0-98.0) fL MCH (27.0-33.0) pg MCHC (31.0-35.0) g/dl RDW (11.0-16.0) % Plt Count (160-400) X10*3/uL MPV (9.4-12.3) fL Immature Gran % (Auto) (0.0-0.4) % Neut % (Auto) (45-73) % Lymph % (Auto) (20-40) % [place] % (Auto) (2-11) % Eos % (Auto) (0-4) % Baso % (Auto) (0-2) % Lymph # (Auto) (1.2-4.9) X10*3/uL [place] # (Auto) (0.1-1.2) X10*3/uL Eos # (Auto) (0.0-0.4) X10*3/uL Baso # (Auto) (0.0-0.2) X10*3/uL Abs Immat Gran (auto) (0.00-0.03) X10*3/uL Absolute Neuts (auto) (2.0-8.3) x10*3/uL Absolute Nucleated RBC (0.0-0.012) X10*3/uL Nucleated RBC % (auto) (0.0-0.2) /100WBC Sodium (135-145) mmol/L Potassium (3.3-5.1) mmol/L Chloride (96-108) mmol/L Carbon Dioxide (22-29) mmol/L Anion Gap (12-20) BUN (9-16) mg/dL Creatinine (0.5-1.4) mg/dL Estim Creat Clear Calc Estimated GFR Random Glucose (60-115) mg/dL Calcium (8.4-10.2) mg/dL Magnesium (1.6-2.6) mg/dL Total Bilirubin (0.0-1.0) mg/dL Direct Bilirubin (0.0-0.5) mg/dL AST (5-31) U/L ALT (0-31) U/L Alkaline Phosphatase (39-117) U/L Total Protein (6.5-8.0) g/dL Albumin (3.5-5.0) g/dL Urine Color Urine Appearance Urine pH (5.0-8.0) Ur Specific [place] (1.005-1.025) Urine Protein (NEG-TRACE) MG/DL Urine Glucose (UA) (NEG) MG/DL Urine Ketones (NEG) MG/DL Urine Blood (NEG) Urine Nitrite (NEG) Ur Leukocyte Esterase (NEG) Urine Opiates Screen (Not Detect) Urine Fentanyl Screen (Not Detect) Ur Barbiturates Screen (Not Detect) Ur Phencyclidine Scrn (Not Detect) Ur Amphetamines Screen (Not Detect) U Benzodiazepines Scrn (Not Detect) [place] (0.60-1.20) mmol/L Urine Cocaine Screen (Not Detect) U Marijuana (THC) Screen (Not Detect) Ethyl Alcohol < 10 mg/dL COVID-19 (NICK) (Negative) COVID-19 Clin Com Procedures Laceration Laceration 1: Site: upper extremity Side (If applicable): left Size (cm): 3 Description: linear Depth: simple, single layer Pre-repair: deep structures intact Skin layer closed with: other (dermabond and steri-strips) Discharge Plan Discharge Clinical Impression: Suicidal ideation, Self-inflicted laceration of left wrist Patient Disposition: Xfer Other Transfer Details: [facility] Instructions: Suicide Prevention (ED), Depression (ED) Additional Instructions: Skin glue and Steri-Strips were used to close your laceration today. Do not get wet for 24 hours, after that you can briefly wash with soap and water then pat dry. Keep wound clean and covered. Do not submerge in water. Follow-up with your therapist, psychiatrist, and regular doctor as soon as possible. If you develop signs of infection including increased pain, swelling, redness or drainage of pus come back to the ER for further evaluation. Prescriptions: No Action polyethylene glycol 3350 [Miralax] 17 gram Powder In Packet 17 g PO DAILY PRN (Reason: Constipation) RF: 0 metformin 500 mg tablet 1 tab PO BID RF: 0 atorvastatin 10 mg tablet 1 tab PO DAILY RF: 0 pantoprazole 40 mg tablet,delayed release (DR/EC) 1 tab PO BID@0630,1630 RF: 0 verapamil 240 mg tablet extended release 1 tab PO BEDTIME RF: 0 montelukast 10 mg tablet 1 tab PO BEDTIME RF: 0 ferrous sulfate 325 mg (65 mg iron) tablet,delayed release (DR/EC) 1 tab PO DAILY RF: 0 Flovent HFA 110 mcg/actuation HFA aerosol inhaler 2 puff inhalation BID RF: 0 norethindrone (contraceptive) [Deblitane] 0.35 mg Tablet 0.35 mg PO DAILY RF: 0 albuterol sulfate [Ventolin HFA] 90 mcg/actuation HFA aerosol inhaler 2 puff inhalation Q4H PRN (Reason: Shortness Of Breath) RF: 0 nicotine 21 mg/24 hr Patch 24 Hour 21 mg transdermal DAILY PRN (Reason: smoking cessation) 28 Days Qty: 28 RF: 0 benztropine 0.5 mg Tablet 0.5 mg PO BID PRN (Reason: EPS) 30 Days Qty: 60 RF: 0 hydroxyzine HCl 50 mg Tablet 50 mg PO QID PRN (Reason: Anxiety) 30 Days Qty: 120 RF: 0 chlorpromazine 25 mg Tablet 50 mg PO QID 30 Days Qty: 240 RF: 0 clonidine HCl 0.1 mg tablet 0.1 mg PO BID@0830,1430 RF: 0 ibuprofen 600 mg Tablet 600 mg PO Q6H PRN (Reason: Mild Pain (Scale Score 1-4)) RF: 0 chlorpromazine 25 mg Tablet 75 mg PO Q4H PRN (Reason: agitation) 30 Days Qty: 300 RF: 0 nystatin 100,000 unit/gram Cream 1 appl topical BID 15 Days Qty: 5 RF: 0 fluoxetine 20 mg Capsule 40 mg PO DAILY 30 Days Qty: 60 RF: 0 clonazepam 0.5 mg Tablet 0.5 mg PO QID PRN (Reason: anxiety/AH) 30 Days Qty: 60 RF: 0 prazosin 1 mg Capsule 4 mg PO BEDTIME 30 Days Qty: 120 RF: 0 lithium carbonate 450 mg Tablet Extended Release 450 mg PO BEDTIME 30 Days Qty: 30 RF: 0 mirtazapine 7.5 mg Tablet 7.5 mg PO BEDTIME MRX1 30 Days Qty: 60 RF: 0 trazodone 150 mg tablet 100 mg PO BEDTIME PRN (Reason: insomnia) 30 Days Qty: 30 RF: 0
[2021-10-28 16:14] LABS: Appearance Urine CLEAR; Color Urine STRAW; Glucose Urine UA NEG (NEG); Leukocyte Esterase Urine NEG (NEG); Nitrite Urine NEG (NEG); Specific Gravity - Urine <= 1.005 (1.005-1.025); Urine Blood NEG (NEG); Urine Ketones NEG (NEG); Urine Protein NEG (NEG-TRACE)
[2021-10-28 16:30] LABS: Amphetamine Screen Urine Not Detected (Not Detect); Barbiturates, Urine Not Detected (Not Detect); Benzodiazepines Screen Urine Not Detected (Not Detect); Cannabinoid Screen Urine Not Detected (Not Detect); Cocaine Screen Urine Not Detected (Not Detect); Fentanyl, urine Not Detected (Not Detect); Opiate Screen Urine Not Detected (Not Detect); Phencyclidine Screen Urine Not Detected (Not Detect)
[2021-10-28 16:56] LABS: MANUAL DIFF FLAG NO
[2021-10-28 16:57] LABS: Basophils Percent Auto 0.4 % (0-2); Eosinophils Absolute Auto 0.5 X10*3/uL (0.0-0.4); Eosinophils Percent Auto 6.1 % (0-4); Hematocrit 35.5 % (37.0-47.0); Hemoglobin 11.9 g/dl (12.0-16.0); Imm Gran Abs Auto 0.04 X10*3/uL (0.00-0.03); Imm Gran Pct Auto 0.5 % (0.0-0.4); Lymphocytes Absolute Auto 1.5 X10*3/uL (1.2-4.9); Lymphocytes Percent Auto 20.5 % (20-40); Mean Corpuscular HGB Conc 33.5 g/dl (31.0-35.0); Mean Corpuscular Hemoglobin 30.4 pg (27.0-33.0); Mean Corpuscular Volume 90.8 fL (80.0-98.0); Mean Platelet Volume 9.3 fL (9.4-12.3); Monocytes Absolute Auto 0.6 X10*3/uL (0.1-1.2); Monocytes Percent Auto 7.3 % (2-11); Neutrophils Absolute Auto 4.9 x10*3/uL (2.0-8.3); Neutrophils Percent Auto 65.2 % (45-73); Platelet Count 299 X10*3/uL (160-400); Red Blood Count 3.91 X10*6/uL (4.20-5.50); Red Cell Distribution Width 12.3 % (11.0-16.0); White Blood Count 7.5 X10*3/uL (4.8-10.8)
[2021-10-28 17:11] LABS: Lithium 0.26 mmol/L (0.60-1.20)
[2021-10-28 17:12] LABS: COVID-19 Test Negative (Negative)
[2021-10-28 17:15] LABS: Ethanol < 10 mg/dL
[2021-10-28 17:21] LABS: Alanine Aminotransferase 21 U/L (0-31); Alkaline Phosphatase 99 U/L (39-117); Anion Gap 13 (12-20); Aspartate Amino Transferase 22 U/L (5-31); Bilirubin Direct < 0.2 mg/dL (0.0-0.5); Bilirubin Total 0.2 mg/dL (0.0-1.0); Blood Urea Nitrogen 10 mg/dL (9-16); Calcium 9.6 mg/dL (8.4-10.2); Carbon Dioxide 24 mmol/L (22-29); Chloride 99 mmol/L (96-108); Creatinine Clr Calc Pharmacy 106.1; Estimated Glomerular Filt Rate > 60; Glucose Random 120 mg/dL (60-115); Magnesium 1.8 mg/dL (1.6-2.6); Potassium 4.2 mmol/L (3.3-5.1); Sodium 132 mmol/L (135-145); Total Protein 6.8 g/dL (6.5-8.0)
== END 2021-10-28 19:31 | disposition home or self-care (01) ==
PROVIDERS: Physician Assistant; Emergency Provider Internal Medicine
DX: S61.512A Laceration without foreign body of left wrist, initial encounter (principal); F33.1 Major depressive disorder, recurrent, moderate; R45.851 Suicidal ideations; X78.9XXA Intentional self-harm by unspecified sharp object, initial encounter; Y93.9 Activity, unspecified; Y92.9 Unspecified place or not applicable; Y99.9 Unspecified external cause status; Z20.822 Contact with and (suspected) exposure to COVID-19; Z79.899 Other long term (current) drug therapy; F17.210 Nicotine dependence, cigarettes, uncomplicated; Z71.6 Tobacco abuse counseling
CPT/HCPCS: 12002; 80048; 80076; 80178; 80307; 81003; 82077; 83735; 85025; 87635; 99283; 99285

== ENCOUNTER 2021-11-01 21:09 | Emergency (ER) | payer MEDICARE, MEDICAID, SELFPAY ==
[2021-11-01 21:14] VITALS: BP 118/64; PULSE 100; O2SAT 99
--- NOTE | 2021-11-01 21:16 | ED_ITS ---
HPI - Psych General Chief Complaint: Psychiatric Symptoms Stated Complaint: si Time Seen by Provider: 11/01/21 21:15 History of Present Illness HPI Narrative: Patient is a 45-year-old female with a long history of psychiatric history. Inclu PTSD, borderline personality, depression. Presents today after having thoughts of killing herself. Patient hearing voices to cut herself. Patient denies taking any ingestion did have thoughts about taking an overdose. Patient denies any fever chills no cough no congestion or upper respiratory symptoms. She did receive 2 shots of COVID vaccine. Patient from home. Related Data Home Medications Medication Instructions Recorded Confirmed polyethylene glycol 3350 17 gram 17 g PO DAILY PRN 02/12/21 10/28/21 oral powder packet (Miralax) atorvastatin 10 mg tablet 1 tab PO DAILY 05/29/21 10/28/21 ferrous sulfate 325 mg (65 mg 1 tab PO DAILY 05/29/21 10/28/21 iron) tablet,delayed release fluticasone propionate 110 2 puff INHALATION BID 05/29/21 10/28/21 mcg/actuation HFA aerosol inhaler (Flovent HFA) metformin 500 mg tablet 1 tab PO BID 05/29/21 10/28/21 montelukast 10 mg tablet 1 tab PO BEDTIME 05/29/21 10/28/21 norethindrone (contraceptive) 0.35 0.35 mg PO DAILY 05/29/21 10/27/21 mg tablet (Deblitane) pantoprazole 40 mg tablet,delayed 1 tab PO BID@0630,1630 05/29/21 10/28/21 release verapamil 240 mg tablet,extended 1 tab PO BEDTIME 05/29/21 10/28/21 release albuterol sulfate 90 mcg/actuation 2 puff INHALATION Q4H PRN 06/15/21 10/28/21 aerosol inhaler (Ventolin HFA) clonidine HCl 0.1 mg tablet 0.1 mg PO BID@0830,1430 08/26/21 10/28/21 ibuprofen 600 mg tablet 600 mg PO Q6H PRN 09/19/21 10/28/21 Previous Rx's Medication Instructions Recorded benztropine 0.5 mg tablet 0.5 mg PO BID PRN 30 Days #60 tab 07/27/21 hydroxyzine HCl 50 mg tablet 50 mg PO QID PRN 30 Days #120 tab 07/27/21 chlorpromazine 25 mg tablet 50 mg PO QID 30 Days #240 tab 08/15/21 nicotine 21 mg/24 hr daily 21 mg TRANSDERMAL DAILY PRN 28 09/06/21 transdermal patch Days #28 ea chlorpromazine 25 mg tablet 75 mg PO Q4H PRN 30 Days #300 tab 09/29/21 clonazepam 0.5 mg tablet 0.5 mg PO QID PRN 30 Days #60 tab 09/29/21 fluoxetine 20 mg capsule 40 mg PO DAILY 30 Days #60 cap 09/29/21 nystatin 100,000 unit/gram topical 1 appl TOPICAL BID 15 Days #5 g 09/29/21 cream lithium carbonate 450 mg 450 mg PO BEDTIME 30 Days #30 tab 10/18/21 tablet,extended release mirtazapine 7.5 mg tablet 7.5 mg PO BEDTIME MRX1 30 Days #60 10/18/21 tab prazosin 1 mg capsule 4 mg PO BEDTIME 30 Days #120 cap 10/18/21 trazodone 150 mg tablet 100 mg PO BEDTIME PRN 30 Days #30 10/18/21 tab Allergies Allergy/AdvReac Type Severity Reaction Status Date / Time Fish Containing Products Allergy Severe ANAPHYLAXIS Verified 11/01/21 22:01 codeine [Codeine] Allergy Unknown RASH Verified 11/01/21 22:01 Penicillins Allergy Unknown RASH Verified 11/01/21 22:01 prednisone [Prednisone] Allergy Unknown RASH Verified 11/01/21 22:01 Sulfa (Sulfonamide Allergy Unknown RASH Verified 11/01/21 22:01 Antibiotics) [Sulfa (Sulfonamides)] azithromycin [AZITHROMYCIN] AdvReac Severe RASH Verified 11/01/21 22:01 nicotine AdvReac Unknown HEART Verified 11/01/21 22:01 PALPITATION TO NICOTINE GUM Seafood Allergy Severe ANAPHYLAXIS Uncoded 11/01/21 22:01 From Geodon Allergy Unknown DYSURIA, Uncoded 11/01/21 22:01 RASH Review of Systems Review of Systems: No fever no chills no chest pain or shortness of breath no nausea no vomiting All system reviewed otherwise negative PMFSH Past Medical History Attestation statement: The following information was validated with the patient. Medical History Bronchitis Diabetes type 2, controlled GERD (gastroesophageal reflux disease) Hyperlipidemia MDD (major depressive disorder), recurrent episode, severe Mood disorder Overdose PTSD (post-traumatic stress disorder) Social History Social History 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: None 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 Other:: Patient lives in long-term. 4 in total live in long-term. Housing: Other Housing Other:: halfway Do you presently have visiting nurse or other home services: No (Medication administered by long-term staff) Unable to assess alcohol history related to: Unknown Alcohol intake: never Patient Tobacco Use Status: Current everyday Tobacco user Tobacco use type: Cigarette Cigarette Packs Per Day: 1 Cigarettes Per Day: 20 Years Smoked: 20 e-Cigarette/Vaping Use: Never Used Second Hand Smoke Exposure: Yes Substance Use Type: Caffiene Advance Directives: No Patient : No service: No Sexual orientation: Don't Know Physical Exam Vital Signs: Vital Signs: Last Vital Signs Temp 98.6 F 11/01/21 22:06 Pulse 97 11/01/21 22:06 Resp 18 11/01/21 22:06 BP 148/92 H 11/01/21 22:06 Pulse Ox 96 11/01/21 22:06 BMI result Body Mass Index 37.9 Appearance: Alert. Oriented X3. No acute distress. Eyes: Pupils equal, round and reactive to light. ENT: Pharynx normal. Neck: Normal inspection. Neck supple. No lymph nodes noted. No crepitus CVS: Normal heart rate and rhythm. Pulses normal. Normal S1 and S2 Respiratory: No respiratory distress. Breath sounds normal. No Wheezing. No rales Abdomen: Soft and nontender. No rigidity. No distention. good BS x4 Skin: Skin warm and dry. Normal skin color. Normal skin turgor. Positive abrasion noted in bilateral forearm. The right forearm appear to be fresh. All superficial. Extremities: No lower extremity edema. Neurovascular intact to all extremities. No Lacerations. No Rash Neuro: Oriented X 3. No motor deficit. No sensory deficit. Moving all exterm ities. No slurred speech MDM - Psych MDM Narrative Medical decision making narrative: Patient medically cleared awaiting crisis evaluation for suicidal ideation Lab Data Attestation: I reviewed the patient's lab results. Result diagrams: 11/01/21 21:46 01/18/22 21:46 Labs: Lab Results 11/01/21 11/01/21 11/01/21 Range/Units 21:46 21:46 21:47 WBC 7.8 (4.8-10.8) X10*3/uL RBC 3.77 L (4.20-5.50) X10*6/uL Hgb 11.4 L (12.0-16.0) g/dl Hct 34.7 L (37.0-47.0) % MCV 92.0 (80.0-98.0) fL MCH 30.2 (27.0-33.0) pg MCHC 32.9 (31.0-35.0) g/dl RDW 12.2 (11.0-16.0) % Plt Count 273 (160-400) X10*3/uL MPV 9.1 L (9.4-12.3) fL Immature Gran % (Auto) 0.6 H (0.0-0.4) % Neut % (Auto) 59.0 (45-73) % Lymph % (Auto) 24.1 (20-40) % [place] % (Auto) 9.1 (2-11) % Eos % (Auto) 6.8 H (0-4) % Baso % (Auto) 0.4 (0-2) % Lymph # (Auto) 1.9 (1.2-4.9) X10*3/uL [place] # (Auto) 0.7 (0.1-1.2) X10*3/uL Eos # (Auto) 0.5 H (0.0-0.4) X10*3/uL Baso # (Auto) 0.0 (0.0-0.2) X10*3/uL Abs Immat Gran (auto) 0.05 H (0.00-0.03) X10*3/uL Absolute Neuts (auto) 4.6 (2.0-8.3) x10*3/uL Absolute Nucleated RBC 0.000 (0.0-0.012) X10*3/uL Nucleated RBC % (auto) 0.0 (0.0-0.2) /100WBC Sodium 138 (135-145) mmol/L Potassium 4.0 (3.3-5.1) mmol/L Chloride 107 (96-108) mmol/L Carbon Dioxide 24 (22-29) mmol/L Anion Gap 11 L (12-20) BUN 7 L (9-16) mg/dL Creatinine 0.76 (0.5-1.4) mg/dL Estim Creat Clear Calc 113.8 Estimated GFR > 60 Random Glucose 140 H (60-115) mg/dL Calcium 9.0 D (8.4-10.2) mg/dL Total Bilirubin 0.2 (0.0-1.0) mg/dL Direct Bilirubin < 0.2 (0.0-0.5) mg/dL AST 31 D (5-31) U/L ALT 42 H (0-31) U/L Alkaline Phosphatase 93 (39-117) U/L Total Protein 6.4 L (6.5-8.0) g/dL Albumin 3.9 (3.5-5.0) g/dL Beta HCG, Quant < 2 mIU/mL Salicylates < 5.0 L (15-30) mg/dL Urine Opiates Screen (Not Detect) Urine Fentanyl Screen (Not Detect) Acetaminophen < 1 (<30) mcg/mL Ur Barbiturates Screen (Not Detect) Ur Phencyclidine Scrn (Not Detect) Ur Amphetamines Screen (Not Detect) U Benzodiazepines Scrn (Not Detect) Urine Cocaine Screen (Not Detect) U Marijuana (THC) Screen (Not Detect) COVID-19 (NICK) Negative (Negative) COVID-19 Clin Com See Note 11/01/21 Range/Units 21:56 WBC (4.8-10.8) X10*3/uL RBC (4.20-5.50) X10*6/uL Hgb (12.0-16.0) g/dl Hct (37.0-47.0) % MCV (80.0-98.0) fL MCH (27.0-33.0) pg MCHC (31.0-35.0) g/dl RDW (11.0-16.0) % Plt Count (160-400) X10*3/uL MPV (9.4-12.3) fL Immature Gran % (Auto) (0.0-0.4) % Neut % (Auto) (45-73) % Lymph % (Auto) (20-40) % [place] % (Auto) (2-11) % Eos % (Auto) (0-4) % Baso % (Auto) (0-2) % Lymph # (Auto) (1.2-4.9) X10*3/uL [place] # (Auto) (0.1-1.2) X10*3/uL Eos # (Auto) (0.0-0.4) X10*3/uL Baso # (Auto) (0.0-0.2) X10*3/uL Abs Immat Gran (auto) (0.00-0.03) X10*3/uL Absolute Neuts (auto) (2.0-8.3) x10*3/uL Absolute Nucleated RBC (0.0-0.012) X10*3/uL Nucleated RBC % (auto) (0.0-0.2) /100WBC Sodium (135-145) mmol/L Potassium (3.3-5.1) mmol/L Chloride (96-108) mmol/L Carbon Dioxide (22-29) mmol/L Anion Gap (12-20) BUN (9-16) mg/dL Creatinine (0.5-1.4) mg/dL Estim Creat Clear Calc Estimated GFR Random Glucose (60-115) mg/dL Calcium (8.4-10.2) mg/dL Total Bilirubin (0.0-1.0) mg/dL Direct Bilirubin (0.0-0.5) mg/dL AST (5-31) U/L ALT (0-31) U/L Alkaline Phosphatase (39-117) U/L Total Protein (6.5-8.0) g/dL Albumin (3.5-5.0) g/dL Beta HCG, Quant mIU/mL Salicylates (15-30) mg/dL Urine Opiates Screen Not Detected (Not Detect) Urine Fentanyl Screen Not Detected (Not Detect) Acetaminophen (<30) mcg/mL Ur Barbiturates Screen Not Detected (Not Detect) Ur Phencyclidine Scrn Not Detected (Not Detect) Ur Amphetamines Screen Not Detected (Not Detect) U Benzodiazepines Scrn Not Detected (Not Detect) Urine Cocaine Screen Not Detected (Not Detect) U Marijuana (THC) Screen Not Detected (Not Detect) COVID-19 (NICK) (Negative) COVID-19 Clin Com Discharge Plan Discharge Clinical Impression: Suicidal ideation, Depression Prescriptions: No Action polyethylene glycol 3350 [Miralax] 17 gram Powder In Packet 17 g PO DAILY PRN (Reason: Constipation) RF: 0 metformin 500 mg tablet 1 tab PO BID RF: 0 atorvastatin 10 mg tablet 1 tab PO DAILY RF: 0 pantoprazole 40 mg tablet,delayed release (DR/EC) 1 tab PO BID@0630,1630 RF: 0 verapamil 240 mg tablet extended release 1 tab PO BEDTIME RF: 0 montelukast 10 mg tablet 1 tab PO BEDTIME RF: 0 ferrous sulfate 325 mg (65 mg iron) tablet,delayed release (DR/EC) 1 tab PO DAILY RF: 0 Flovent HFA 110 mcg/actuation HFA aerosol inhaler 2 puff inhalation BID RF: 0 norethindrone (contraceptive) [Deblitane] 0.35 mg Tablet 0.35 mg PO DAILY RF: 0 albuterol sulfate [Ventolin HFA] 90 mcg/actuation HFA aerosol inhaler 2 puff inhalation Q4H PRN (Reason: Shortness Of Breath) RF: 0 nicotine 21 mg/24 hr Patch 24 Hour 21 mg transdermal DAILY PRN (Reason: smoking cessation) 28 Days Qty: 28 RF: 0 benztropine 0.5 mg Tablet 0.5 mg PO BID PRN (Reason: EPS) 30 Days Qty: 60 RF: 0 hydroxyzine HCl 50 mg Tablet 50 mg PO QID PRN (Reason: Anxiety) 30 Days Qty: 120 RF: 0 chlorpromazine 25 mg Tablet 50 mg PO QID 30 Days Qty: 240 RF: 0 clonidine HCl 0.1 mg tablet 0.1 mg PO BID@0830,1430 RF: 0 ibuprofen 600 mg Tablet 600 mg PO Q6H PRN (Reason: Mild Pain (Scale Score 1-4)) RF: 0 chlorpromazine 25 mg Tablet 75 mg PO Q4H PRN (Reason: agitation) 30 Days Qty: 300 RF: 0 nystatin 100,000 unit/gram Cream 1 appl topical BID 15 Days Qty: 5 RF: 0 fluoxetine 20 mg Capsule 40 mg PO DAILY 30 Days Qty: 60 RF: 0 clonazepam 0.5 mg Tablet 0.5 mg PO QID PRN (Reason: anxiety/AH) 30 Days Qty: 60 RF: 0 prazosin 1 mg Capsule 4 mg PO BEDTIME 30 Days Qty: 120 RF: 0 lithium carbonate 450 mg Tablet Extended Release 450 mg PO BEDTIME 30 Days Qty: 30 RF: 0 mirtazapine 7.5 mg Tablet 7.5 mg PO BEDTIME MRX1 30 Days Qty: 60 RF: 0 trazodone 150 mg tablet 100 mg PO BEDTIME PRN (Reason: insomnia) 30 Days Qty: 30 RF: 0
[2021-11-01 21:58] VITALS: BMI 37.9
[2021-11-01 21:58] LABS: MANUAL DIFF FLAG NO
[2021-11-01 21:59] LABS: Basophils Percent Auto 0.4 % (0-2); Eosinophils Absolute Auto 0.5 X10*3/uL (0.0-0.4); Eosinophils Percent Auto 6.8 % (0-4); Hematocrit 34.7 % (37.0-47.0); Hemoglobin 11.4 g/dl (12.0-16.0); Imm Gran Abs Auto 0.05 X10*3/uL (0.00-0.03); Imm Gran Pct Auto 0.6 % (0.0-0.4); Lymphocytes Absolute Auto 1.9 X10*3/uL (1.2-4.9); Lymphocytes Percent Auto 24.1 % (20-40); Mean Corpuscular HGB Conc 32.9 g/dl (31.0-35.0); Mean Corpuscular Hemoglobin 30.2 pg (27.0-33.0); Mean Platelet Volume 9.1 fL (9.4-12.3); Monocytes Absolute Auto 0.7 X10*3/uL (0.1-1.2); Monocytes Percent Auto 9.1 % (2-11); Neutrophils Absolute Auto 4.6 x10*3/uL (2.0-8.3); Platelet Count 273 X10*3/uL (160-400); Red Blood Count 3.77 X10*6/uL (4.20-5.50); Red Cell Distribution Width 12.2 % (11.0-16.0); White Blood Count 7.8 X10*3/uL (4.8-10.8)
[2021-11-01 22:06] VITALS: BP 148/92; PULSE 97; RESP 18; TEMP 37; O2SAT 96
[2021-11-01 22:14] LABS: COVID-19 Test Negative (Negative)
[2021-11-01 22:15] LABS: Acetaminophen LAB < 1 mcg/mL (<30); Alanine Aminotransferase 42 U/L (0-31); Albumin Level 3.9 g/dL (3.5-5.0); Alkaline Phosphatase 93 U/L (39-117); Anion Gap 11 (12-20); Aspartate Amino Transferase 31 U/L (5-31); Bilirubin Direct < 0.2 mg/dL (0.0-0.5); Bilirubin Total 0.2 mg/dL (0.0-1.0); Blood Urea Nitrogen 7 mg/dL (9-16); Carbon Dioxide 24 mmol/L (22-29); Chloride 107 mmol/L (96-108); Creatinine Clr Calc Pharmacy 113.8; Estimated Glomerular Filt Rate > 60; Glucose Random 140 mg/dL (60-115); Salicylate < 5.0 mg/dL (15-30); Sodium 138 mmol/L (135-145); Total Protein 6.4 g/dL (6.5-8.0)
[2021-11-01 22:21] LABS: HCG Quantitative < 2 mIU/mL
[2021-11-01 23:04] LABS: Amphetamine Screen Urine Not Detected (Not Detect); Barbiturates, Urine Not Detected (Not Detect); Benzodiazepines Screen Urine Not Detected (Not Detect); Cannabinoid Screen Urine Not Detected (Not Detect); Cocaine Screen Urine Not Detected (Not Detect); Fentanyl, urine Not Detected (Not Detect); Opiate Screen Urine Not Detected (Not Detect); Phencyclidine Screen Urine Not Detected (Not Detect)
[2021-11-02 04:00] VITALS: RESP 16
--- NOTE | 2021-11-02 08:34 | MHC.CARE ---
Smart sheet has been submitted for this pt
[2021-11-02] MEDS: chlorproMAZINE HCl 25 MG TABLET 75 MG PO (08:37)
[2021-11-02] MEDS: clonazePAM 0.5 MG TABLET PO (08:37)
--- NOTE | 2021-11-02 09:38 | MHC.CARE ---
Pt is a 45 y/o single, , Occitan speaking, female, who is previously known to the CARE Team through prior assessments, ED visits and in patient stays.? Yesterday, she was transported to this facility via EMS after prison staff discovered that she had broken a bowl in her room and was cutting herself with the broken shards.? She endorses command auditory hallucinations, stating that they were ?Loud? yesterday but are ?manageable? today.? Pt has been medically cleared and is being assessed by the CARE Team to determine appropriate treatment recommendations. Pt has an extensive hx of inpt hospitalizations, and is known to engage in unsafe. Past documented hx of Major depressive d/o,?PTSD, and Borderline personality d/o. Pt has a hx of self-harm and suicide attempts. Pt is alert and oriented x4 and is assessed by CARE Team in her room in the behavioral health pod.? She is drinking coffee during the assessment.? Pt is neat in appearance and appears older than her stated age.? Pt's eye contact and speech are within normal limits.? She reports good, restful, sleep last night.? She reports her appetite as good.? She describes her mood as ?ok?, stating that she is continuing to maintain her daily routine which she finds helpful.? She stated that since her last visit to the ED, she was ?doing really good.?? She stated that yesterday was a ?really good day? saying that she went out and got her hair cut, hung out with friends, and ?went out to eat.?? She stated ?I don?t know what happened, yesterday was a really good day.?? Pt's affect is variable, smiling often, particularly when describing a writing project she is working on.? She reports hearing voices but that the voices are ?manageable?.?? She denies SI, , HI and self-harm urges.? No thoughts of harm to others.? Insight, judgement, memory and concentration appear good. Pt's functioning today appears to be at her baseline.? She reports still experiencing auditory hallucinations though she reports ?The voices are manageable.?? At baseline, pt struggles with coping, and does experience auditory hallucinations but is able to manage them.? The plan is for pt to be discharged back to the prison.? CARE Team will secure a ride for pt.? This disposition was discussed with and agreed upon by CARE Covering Machine Tender Pop MILLER, ED Provider Chetan, and pt?s nurse WALKER Still. CARE Team contacted the prison to advise them that pt will be discharged back to the prison.? CARE Team with secure a Lyft for pt. F33.0 - Mild major depressive d/o, recurrent episode, F43.10 - Post Traumatic Stress d/o, F60.3 - Borderline personality d/o
[2021-11-02] MEDS: metFORMIN HCl 500 MG TABLET PO (09:45)
[2021-11-02] MEDS: Atorvastatin Calcium 10 MG TABLET PO (09:45)
== END 2021-11-02 10:18 | disposition home or self-care (01) ==
PROVIDERS: Emergency Provider Emergency Medicine Emergency Medical Services
DX: R45.851 Suicidal ideations (principal); F32.A Depression, unspecified; R44.0 Auditory hallucinations; Z20.822 Contact with and (suspected) exposure to COVID-19; F43.10 Post-traumatic stress disorder, unspecified; F60.3 Borderline personality disorder; E11.9 Type 2 diabetes mellitus without complications; E78.5 Hyperlipidemia, unspecified; F17.200 Nicotine dependence, unspecified, uncomplicated; Z79.899 Other long term (current) drug therapy; Z79.02 Long term (current) use of antithrombotics/antiplatelets; Z91.51 Personal history of suicidal behavior
CPT/HCPCS: 80048; 80076; 80143; 80179; 80307; 84702; 85025; 87635; 99284; 99285

== ENCOUNTER 2021-11-05 21:05 | Emergency (ER) | payer MEDICARE, MEDICAID, SELFPAY ==
[2021-11-05 21:15] VITALS: BP 140/100; BP 145/100; PULSE 110; PULSE 111; RESP 18; TEMP 37.1; O2SAT 98; BMI 38.0
--- NOTE | 2021-11-05 21:55 | PHA.MEDREC ---
Pharmacy Consult ? Medication Reconciliation Pharmacy has completed the medication reconciliation. No remarkable issues. Arianna Grande, MarjD
[2021-11-05 21:56] LABS: COVID-19 Test Negative (Negative)
--- NOTE | 2021-11-06 03:46 | ED.PSYCH ---
HPI - Psych General Chief Complaint: Psychiatric Symptoms Stated Complaint: SI Source: patient Mode of arrival: ambulatory Limitations: no limitations History of Present Illness HPI Narrative: Patient presents to ED once again for self-inflicted lacerations on left forearm. Patient once again stating mild SI thoughs. Patient is a regular to this ED. Patient states no physical complaints Related Data Home Medications Medication Instructions Recorded Confirmed polyethylene glycol 3350 17 gram 17 g PO DAILY PRN 02/12/21 11/05/21 oral powder packet (Miralax) atorvastatin 10 mg tablet 1 tab PO DAILY 05/29/21 11/05/21 ferrous sulfate 325 mg (65 mg 1 tab PO DAILY 05/29/21 11/05/21 iron) tablet,delayed release fluticasone propionate 110 2 puff INHALATION BID 05/29/21 11/05/21 mcg/actuation HFA aerosol inhaler (Flovent HFA) metformin 500 mg tablet 1 tab PO BID 05/29/21 11/05/21 montelukast 10 mg tablet 1 tab PO BEDTIME 05/29/21 11/05/21 norethindrone (contraceptive) 0.35 0.35 mg PO DAILY 05/29/21 11/05/21 mg tablet (Deblitane) pantoprazole 40 mg tablet,delayed 1 tab PO BID@0630,1630 05/29/21 11/05/21 release verapamil 240 mg tablet,extended 1 tab PO BEDTIME 05/29/21 11/05/21 release albuterol sulfate 90 mcg/actuation 2 puff INHALATION Q4H PRN 06/15/21 11/05/21 aerosol inhaler (Ventolin HFA) clonidine HCl 0.1 mg tablet 0.1 mg PO BID@0830,1430 08/26/21 11/05/21 ibuprofen 600 mg tablet 600 mg PO Q6H PRN 09/19/21 11/05/21 trazodone 150 mg tablet 100 mg PO BEDTIME PRN 11/05/21 11/05/21 Previous Rx's Medication Instructions Recorded benztropine 0.5 mg tablet 0.5 mg PO BID PRN 30 Days #60 tab 07/27/21 hydroxyzine HCl 50 mg tablet 50 mg PO QID PRN 30 Days #120 tab 07/27/21 chlorpromazine 25 mg tablet 50 mg PO QID 30 Days #240 tab 08/15/21 chlorpromazine 25 mg tablet 75 mg PO Q4H PRN 30 Days #300 tab 09/29/21 clonazepam 0.5 mg tablet 0.5 mg PO QID PRN 30 Days #60 tab 09/29/21 fluoxetine 20 mg capsule 40 mg PO DAILY 30 Days #60 cap 09/29/21 nystatin 100,000 unit/gram topical 1 appl TOPICAL BID 15 Days #5 g 09/29/21 cream lithium carbonate 450 mg 450 mg PO BEDTIME 30 Days #30 tab 10/18/21 tablet,extended release mirtazapine 7.5 mg tablet 7.5 mg PO BEDTIME MRX1 30 Days #60 10/18/21 tab prazosin 1 mg capsule 4 mg PO BEDTIME 30 Days #120 cap 10/18/21 Allergies Allergy/AdvReac Type Severity Reaction Status Date / Time Fish Containing Products Allergy Severe ANAPHYLAXIS Verified 11/05/21 21:13 codeine [Codeine] Allergy Unknown RASH Verified 11/05/21 21:13 Penicillins Allergy Unknown RASH Verified 11/05/21 21:13 prednisone [Prednisone] Allergy Unknown RASH Verified 11/05/21 21:13 Sulfa (Sulfonamide Allergy Unknown RASH Verified 11/05/21 21:13 Antibiotics) [Sulfa (Sulfonamides)] azithromycin [AZITHROMYCIN] AdvReac Severe RASH Verified 11/05/21 21:13 nicotine AdvReac Unknown HEART Verified 11/05/21 21:13 PALPITATION TO NICOTINE GUM Seafood Allergy Severe ANAPHYLAXIS Uncoded 11/05/21 21:13 From Geodon Allergy Unknown DYSURIA, Uncoded 11/05/21 21:13 RASH Review of Systems Review of Systems: SI. Self-inflicted left forearm lacerations. Yes all other systems are reviewed and are negative [facility] Past Medical History Medical History Bronchitis Diabetes type 2, controlled GERD (gastroesophageal reflux disease) Hyperlipidemia MDD (major depressive disorder), recurrent episode, severe Mood disorder Overdose PTSD (post-traumatic stress disorder) Social History Social History 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: None 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 Other:: Patient lives in prison. 4 in total live in prison. Housing: Other Housing Other:: care home Do you presently have visiting nurse or other home services: No (Medication administered by prison staff) Unable to assess alcohol history related to: Unknown Alcohol intake: never Patient Tobacco Use Status: Never used Tobacco Tobacco use type: Cigarette Cigarette Packs Per Day: 1 Cigarettes Per Day: 20 Years Smoked: 20 Smoked in Last 30 Days: No e-Cigarette/Vaping Use: Never Used Second Hand Smoke Exposure: Yes Substance Use Type: Caffiene Any prior treatment program specific to substance use: No Advance Directives: No Patient : No service: No Sexual orientation: Don't Know Physical Exam Vital Signs: Vital Signs: Last Vital Signs Temp 98.7 F 11/05/21 21:15 Pulse 110 H 11/05/21 21:15 Resp 18 11/05/21 21:15 BP 145/100 H 11/05/21 21:15 Pulse Ox 98 11/05/21 21:15 BMI result Body Mass Index 38.0 Const: General: cooperative, healthy appearing, comfortable, no acute distress, well developed, alert, awake and Physically active Orientation/consciousness: patient oriented x3 HENMT: Head: Yes normal to inspection, Yes No palpable skull fracture present, Yes normocephalic, Yes atraumatic and No abrasion Eyes: General: appearance normal, both eyes and all related structures Neck: Neck: Yes normal visual inspection, Yes full ROM, Yes no lymphadenopathy, Yes no meningeal signs, Yes trachea midline, Yes supple, No anterior neck swelling and No tender Chest: Chest palpation & inspection: normal inspection of the chest and normal palpation of entire chest wall Resp: Effort & Inspection: normal respiratory effort and able to speak in complete sentences Auscultation: clear to auscultation bilaterally Cardio: Jugular venous distension: no JVD Heart sounds: S1 normal heart sound present and S2 normal heart sound present GI: Inspection: Yes normal to inspection Palpation (GI): Soft to palpation, not firm, nontender, no guarding and not rigid : General: No CVA tenderness and Yes no CVA tenderness Back/Spine/Pelvis: Back: no CVA tenderness, No CVA tenderness and No back tenderness Neuro: General: patient oriented x3, gait normal, no meningeal signs and CN's II-XI intact bilaterally Cranial nerves: Yes CN's II-XII intact bilaterally Extrem: Other: Positive for left forearm superficial abrasions. No laceration repair indicated General: Yes normal to inspection and Yes full ROM Psych: Appearance: grossly normal, well kempt and not disheveled Course Course Course Narrative: Swab for COVID. Reevaluation(s) Reevaluation #1: Patient will be evaluated by care team in the morning. Time: 03:53 MDM - Psych Medical Records Medical records narrative: Depression Lab Data Labs: Lab Results 11/05/21 Range/Units 21:24 COVID-19 (NICK) Negative (Negative) COVID-19 Clin Com See Note Discharge Plan Discharge Clinical Impression: Depression Patient Disposition: Still a Patient Prescriptions: No Action polyethylene glycol 3350 [Miralax] 17 gram Powder In Packet 17 g PO DAILY PRN (Reason: Constipation) RF: 0 metformin 500 mg tablet 1 tab PO BID RF: 0 atorvastatin 10 mg tablet 1 tab PO DAILY RF: 0 pantoprazole 40 mg tablet,delayed release (DR/EC) 1 tab PO BID@0630,1630 RF: 0 verapamil 240 mg tablet extended release 1 tab PO BEDTIME RF: 0 montelukast 10 mg tablet 1 tab PO BEDTIME RF: 0 ferrous sulfate 325 mg (65 mg iron) tablet,delayed release (DR/EC) 1 tab PO DAILY RF: 0 Flovent HFA 110 mcg/actuation HFA aerosol inhaler 2 puff inhalation BID RF: 0 norethindrone (contraceptive) [Deblitane] 0.35 mg Tablet 0.35 mg PO DAILY RF: 0 albuterol sulfate [Ventolin HFA] 90 mcg/actuation HFA aerosol inhaler 2 puff inhalation Q4H PRN (Reason: Shortness Of Breath) RF: 0 trazodone 150 mg tablet 100 mg PO BEDTIME PRN (Reason: insomnia) RF: 0 benztropine 0.5 mg Tablet 0.5 mg PO BID PRN (Reason: EPS) 30 Days Qty: 60 RF: 0 hydroxyzine HCl 50 mg Tablet 50 mg PO QID PRN (Reason: Anxiety) 30 Days Qty: 120 RF: 0 chlorpromazine 25 mg Tablet 50 mg PO QID 30 Days Qty: 240 RF: 0 clonidine HCl 0.1 mg tablet 0.1 mg PO BID@0830,1430 RF: 0 ibuprofen 600 mg Tablet 600 mg PO Q6H PRN (Reason: Mild Pain (Scale Score 1-4)) RF: 0 chlorpromazine 25 mg Tablet 75 mg PO Q4H PRN (Reason: agitation) 30 Days Qty: 300 RF: 0 nystatin 100,000 unit/gram Cream 1 appl topical BID 15 Days Qty: 5 RF: 0 fluoxetine 20 mg Capsule 40 mg PO DAILY 30 Days Qty: 60 RF: 0 clonazepam 0.5 mg Tablet 0.5 mg PO QID PRN (Reason: anxiety/AH) 30 Days Qty: 60 RF: 0 prazosin 1 mg Capsule 4 mg PO BEDTIME 30 Days Qty: 120 RF: 0 lithium carbonate 450 mg Tablet Extended Release 450 mg PO BEDTIME 30 Days Qty: 30 RF: 0 mirtazapine 7.5 mg Tablet 7.5 mg PO BEDTIME MRX1 30 Days Qty: 60 RF: 0
--- NOTE | 2021-11-06 06:37 | PC.NURSE ---
Patient slept through the night, no distress observed/reported, med rec completed/pending provider's approval, behavior appropriate, patient will be evaluated by care team to see whether she requires full BHN eval, pending urine sample, VSS, will continue to
--- NOTE | 2021-11-06 07:47 | PC.NURSE ---
Pt up, eating breakfast in back room. Superficial lacs on left forearm are healing, washed again with soap and water now and dressing removed. Pt states i'm feeling much better . Was able to sleep a few hours. Is engaging with staff and awaits CARE TEAM.
--- NOTE | 2021-11-06 09:50 | MHC.CARE ---
Spoke with Pt. to assess level of care. She was stated that she arrived at the ER lastnight due to cutting her arms. She reports that she is unaware of why she cuts, but does not want to cut currently. Currently she denies SI/HI/AH/VH. She reports that she wants to go back home and that she will return to the ER or call crisis if needed. This credit underwriter then informed her [place] [facility] that she will be discharged. Disposition was discussed with and agreed upon with ER Provider, JUN Etienne.
== END 2021-11-06 10:10 | disposition home or self-care (01) ==
PROVIDERS: Emergency Provider Student in an Organized Health Care Education/Training Program
DX: F32.A Depression, unspecified (principal); S50.812A Abrasion of left forearm, initial encounter; X78.9XXA Intentional self-harm by unspecified sharp object, initial encounter; R45.851 Suicidal ideations; Z20.822 Contact with and (suspected) exposure to COVID-19; F43.10 Post-traumatic stress disorder, unspecified; E11.9 Type 2 diabetes mellitus without complications; E78.5 Hyperlipidemia, unspecified; F17.200 Nicotine dependence, unspecified, uncomplicated; Z79.02 Long term (current) use of antithrombotics/antiplatelets; Z79.899 Other long term (current) drug therapy; Y93.9 Activity, unspecified; Y92.9 Unspecified place or not applicable; Y99.9 Unspecified external cause status
CPT/HCPCS: 87635; 99285

== ENCOUNTER 2021-11-06 15:00 | Emergency (ER) | payer MEDICARE, MEDICAID, SELFPAY ==
--- NOTE | 2021-11-06 15:05 | ED.PSYCH ---
HPI - Psych General Chief Complaint: Psychiatric Symptoms Stated Complaint: crisis Time Seen by Provider: 11/06/21 15:05 Source: patient and EMS Mode of arrival: EMS Limitations: no limitations History of Present Illness HPI Narrative: 45-year-old female past medical history significant for borderline personality disorder, depression, anxiety, bipolar 2 with melancholic features, PTSD, DM, GERD presents to the ED with suicidal idiation and auditory hallucinations since this am. Patient reports that she ?dissociated and feels like her 7-year-old self. She tells me she is hearing male voices that are telling her to hurt herself. Denies visual and tactile hallucinations. She tells me she is not sure what triggered this episode. She says everything seemed to be going okay in all the sudden she ?dissociated ?. She is SI with no particular plan, she says her plan may be to cut herself. She denies drug use, alcohol use she tells me she is a current daily smoker.? Patient denies any medical complaints at this time.? She denies chest pain, shortness of breath, fevers, chills, nausea, vomiting, diarrhea, abdominal pain.?Taking all meds as prescribed. MD complaint: suicidal ideation Onset (ago): day(s) (1) Duration: constant History of same: Yes Relieving factors: none Exacerbating factors: none Associated psychiatric symptoms: none Associated symptoms: denies other symptoms Treatments prior to arrival: none If self harm: admits thoughts of self harm and has plan (to cut. ) Related Data Home Medications Medication Instructions Recorded Confirmed polyethylene glycol 3350 17 gram 17 g PO DAILY PRN 02/12/21 11/05/21 oral powder packet (Miralax) atorvastatin 10 mg tablet 1 tab PO DAILY 05/29/21 11/05/21 ferrous sulfate 325 mg (65 mg 1 tab PO DAILY 05/29/21 11/05/21 iron) tablet,delayed release fluticasone propionate 110 2 puff INHALATION BID 05/29/21 11/05/21 mcg/actuation HFA aerosol inhaler (Flovent HFA) metformin 500 mg tablet 1 tab PO BID 05/29/21 11/05/21 montelukast 10 mg tablet 1 tab PO BEDTIME 05/29/21 11/05/21 norethindrone (contraceptive) 0.35 0.35 mg PO DAILY 05/29/21 11/05/21 mg tablet (Deblitane) pantoprazole 40 mg tablet,delayed 1 tab PO BID@0630,1630 05/29/21 11/05/21 release verapamil 240 mg tablet,extended 1 tab PO BEDTIME 05/29/21 11/05/21 release albuterol sulfate 90 mcg/actuation 2 puff INHALATION Q4H PRN 06/15/21 11/05/21 aerosol inhaler (Ventolin HFA) clonidine HCl 0.1 mg tablet 0.1 mg PO BID@0830,1430 08/26/21 11/05/21 ibuprofen 600 mg tablet 600 mg PO Q6H PRN 09/19/21 11/05/21 trazodone 150 mg tablet 100 mg PO BEDTIME PRN 11/05/21 11/05/21 Previous Rx's Medication Instructions Recorded benztropine 0.5 mg tablet 0.5 mg PO BID PRN 30 Days #60 tab 07/27/21 hydroxyzine HCl 50 mg tablet 50 mg PO QID PRN 30 Days #120 tab 07/27/21 chlorpromazine 25 mg tablet 50 mg PO QID 30 Days #240 tab 08/15/21 chlorpromazine 25 mg tablet 75 mg PO Q4H PRN 30 Days #300 tab 09/29/21 clonazepam 0.5 mg tablet 0.5 mg PO QID PRN 30 Days #60 tab 09/29/21 fluoxetine 20 mg capsule 40 mg PO DAILY 30 Days #60 cap 09/29/21 nystatin 100,000 unit/gram topical 1 appl TOPICAL BID 15 Days #5 g 09/29/21 cream lithium carbonate 450 mg 450 mg PO BEDTIME 30 Days #30 tab 10/18/21 tablet,extended release mirtazapine 7.5 mg tablet 7.5 mg PO BEDTIME MRX1 30 Days #60 10/18/21 tab prazosin 1 mg capsule 4 mg PO BEDTIME 30 Days #120 cap 10/18/21 Allergies Allergy/AdvReac Type Severity Reaction Status Date / Time Fish Containing Products Allergy Severe ANAPHYLAXIS Verified 11/05/21 21:13 codeine [Codeine] Allergy Unknown RASH Verified 11/05/21 21:13 Penicillins Allergy Unknown RASH Verified 11/05/21 21:13 prednisone [Prednisone] Allergy Unknown RASH Verified 11/05/21 21:13 Sulfa (Sulfonamide Allergy Unknown RASH Verified 11/05/21 21:13 Antibiotics) [Sulfa (Sulfonamides)] azithromycin [AZITHROMYCIN] AdvReac Severe RASH Verified 11/05/21 21:13 nicotine AdvReac Unknown HEART Verified 11/05/21 21:13 PALPITATION TO NICOTINE GUM Seafood Allergy Severe ANAPHYLAXIS Uncoded 11/05/21 21:13 From [place]odon Allergy Unknown DYSURIA, Uncoded 11/05/21 21:13 RASH Review of Systems Review of Systems: Constitutional : No Fever, No Chills ENT/Mouth : No Ear Pain, No Nasal Congestion, No sore throat Eyes: No Eye Pain, No Swelling, No Redness Cardiovascular : No Chest Pain, No SOB Respiratory : No Cough, No Sputum, No Dyspnea Gastrointestinal : No Nausea, No Vomiting, No Diarrhea, No Hematochezia, No Melena Genitourinary : No Dysuria, No Urinary Frequency, No Hematuria Musculoskeletal : No Myalgias Skin : No Skin Lesions, No rash Neuro : No Weakness, No Numbness, No Paresthesias, No Dizziness, No Headache Psych : positive Anxiety, positive Depression, positive SI, No HI Heme/Lymph: No Lymphadenopathy Endocrine : No Polyuria, No Polydipsia All other systems reviewed and are negative Yes all other systems are reviewed and are negative [facility] Past Medical History Attestation statement: The following information was validated with the patient. Source: old records reviewed and nursing notes reviewed Medical History Bronchitis Diabetes type 2, controlled GERD (gastroesophageal reflux disease) Hyperlipidemia MDD (major depressive disorder), recurrent episode, severe Mood disorder Overdose PTSD (post-traumatic stress disorder) Social History Social History 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: None 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 Other:: Patient lives in snf. 4 in total live in snf. Housing: Other Housing Other:: retirement Do you presently have visiting nurse or other home services: No (Medication administered by snf staff) Unable to assess alcohol history related to: Unknown Alcohol intake: never Patient Tobacco Use Status: Never used Tobacco Tobacco use type: Cigarette Cigarette Packs Per Day: 1 Cigarettes Per Day: 20 Years Smoked: 20 e-Cigarette/Vaping Use: Never Used Second Hand Smoke Exposure: Yes Substance Use Type: Caffiene Advance Directives: No Advance Directives Information Provided: No service: No Sexual orientation: Don't Know Physical Exam Vital Signs: Vital Signs: Last Vital Signs Temp 98.8 F 11/06/21 20:21 Pulse 99 11/06/21 20:21 Resp 18 11/06/21 16:01 BP 170/91 H 11/06/21 20:21 Pulse Ox 97 11/06/21 20:21 BMI result Body Mass Index 37.9 Appearance: Alert.? Oriented X3.? No acute distress.?Patient appears anxious Head: Normocephalic, atraumatic, no step-offs or deformities Eyes: Pupils equal, round and reactive to light.? ENT: Pharynx normal.? Neck: Normal inspection.? Neck supple.? CVS: Normal heart rate and rhythm.? Pulses normal.? Respiratory: No respiratory distress.? Breath sounds normal.? Abdomen: Soft and nontender.? Skin: Skin warm and dry.? Normal skin color.? Normal skin turgor.? Extremities: No lower extremity edema.? No calf ttp. 5/5 strength to bilateral upper and lower extremities Back: No midline tenderness, no C-spine tenderness, full range of motion, no CVA tenderness bilaterally Neuro: Oriented X 3.? No motor deficit.? No sensory deficit. CN 2-12 intact. Course Reevaluation(s) Reevaluation #1: Patient's labs appear to be at baseline. No acute electrolyte abnormalities. [place] level noted to be low. TORRES negative. COVID negative Time: 18:24 Reevaluation #2: Spoke to Nicole from care team who evaluated patient and agrees that patient can be discharged back to snf. Patient reports significant improvement. And she is excited to go back home. I agree with this plan. Not suicidal or homicidal, no longer experiencing auditory hallucinations. Denies visual and tactile hallucinations as well. Patient is in good spirits I agree with plan Time: 20:55 MDM - Psych MDM Narrative Medical decision making narrative: [id number] YO f pmhx borderline personality disorder, depression, posttraumatic stress disorder.? She presents to the emergency department with?one day of SI w/ plan to cut, auditory hallucintions and dissociation since this morning. Placed on a Section 12. Physical examination significant for an anxious female. Plan at this time is to obtain basic labs, COVID, urine and lithium level. Medical Records Attestation: I reviewed the patient's medical records. Lab Data Attestation: I reviewed the patient's lab results. Result diagrams: 11/06/21 17:24 11/06/21 17:24 Labs: Lab Results 11/06/21 11/06/21 11/06/21 Range/Units 17:24 17:24 17:24 WBC 8.0 (4.8-10.8) X10*3/uL RBC 3.92 L (4.20-5.50) X10*6/uL Hgb 11.9 L (12.0-16.0) g/dl Hct 36.3 L (37.0-47.0) % MCV 92.6 (80.0-98.0) fL MCH 30.4 (27.0-33.0) pg MCHC 32.8 (31.0-35.0) g/dl RDW 12.6 (11.0-16.0) % Plt Count 251 (160-400) X10*3/uL MPV 9.0 L (9.4-12.3) fL Immature Gran % (Auto) 0.4 (0.0-0.4) % Neut % (Auto) 65.4 (45-73) % Lymph % (Auto) 22.0 (20-40) % [place] % (Auto) 7.7 (2-11) % Eos % (Auto) 4.1 H (0-4) % Baso % (Auto) 0.4 (0-2) % Lymph # (Auto) 1.8 (1.2-4.9) X10*3/uL [place] # (Auto) 0.6 (0.1-1.2) X10*3/uL Eos # (Auto) 0.3 (0.0-0.4) X10*3/uL Baso # (Auto) 0.0 (0.0-0.2) X10*3/uL Abs Immat Gran (auto) 0.03 (0.00-0.03) X10*3/uL Absolute Neuts (auto) 5.2 (2.0-8.3) x10*3/uL Absolute Nucleated RBC 0.000 (0.0-0.012) X10*3/uL Nucleated RBC % (auto) 0.0 (0.0-0.2) /100WBC Sodium 140 (135-145) mmol/L Potassium 3.8 (3.3-5.1) mmol/L Chloride 104 (96-108) mmol/L Carbon Dioxide 27 (22-29) mmol/L Anion Gap 13 (12-20) BUN 8 L (9-16) mg/dL Creatinine 0.79 (0.5-1.4) mg/dL Estim Creat Clear Calc 109.5 Estimated GFR > 60 Random Glucose 127 H (60-115) mg/dL Calcium 9.3 (8.4-10.2) mg/dL Magnesium 1.8 (1.6-2.6) mg/dL Total Bilirubin < 0.2 (0.0-1.0) mg/dL AST 25 (5-31) U/L ALT 41 H (0-31) U/L Alkaline Phosphatase 98 (39-117) U/L Total Protein 6.6 (6.5-8.0) g/dL Albumin 4.0 (3.5-5.0) g/dL Urine Opiates Screen (Not Detect) Urine Fentanyl Screen (Not Detect) Ur Barbiturates Screen (Not Detect) Ur Phencyclidine Scrn (Not Detect) Ur Amphetamines Screen (Not Detect) U Benzodiazepines Scrn (Not Detect) [place] (0.60-1.20) mmol/L Urine Cocaine Screen (Not Detect) U Marijuana (THC) Screen (Not Detect) COVID-19 (NICK) Negative (Negative) COVID-19 Clin Com See Note 11/06/21 11/06/21 Range/Units 17:24 17:36 WBC (4.8-10.8) X10*3/uL RBC (4.20-5.50) X10*6/uL Hgb (12.0-16.0) g/dl Hct (37.0-47.0) % MCV (80.0-98.0) fL MCH (27.0-33.0) pg MCHC (31.0-35.0) g/dl RDW (11.0-16.0) % Plt Count (160-400) X10*3/uL MPV (9.4-12.3) fL Immature Gran % (Auto) (0.0-0.4) % Neut % (Auto) (45-73) % Lymph % (Auto) (20-40) % [place] % (Auto) (2-11) % Eos % (Auto) (0-4) % Baso % (Auto) (0-2) % Lymph # (Auto) (1.2-4.9) X10*3/uL [place] # (Auto) (0.1-1.2) X10*3/uL Eos # (Auto) (0.0-0.4) X10*3/uL Baso # (Auto) (0.0-0.2) X10*3/uL Abs Immat Gran (auto) (0.00-0.03) X10*3/uL Absolute Neuts (auto) (2.0-8.3) x10*3/uL Absolute Nucleated RBC (0.0-0.012) X10*3/uL Nucleated RBC % (auto) (0.0-0.2) /100WBC Sodium (135-145) mmol/L Potassium (3.3-5.1) mmol/L Chloride (96-108) mmol/L Carbon Dioxide (22-29) mmol/L Anion Gap (12-20) BUN (9-16) mg/dL Creatinine (0.5-1.4) mg/dL Estim Creat Clear Calc Estimated GFR Random Glucose (60-115) mg/dL Calcium (8.4-10.2) mg/dL Magnesium (1.6-2.6) mg/dL Total Bilirubin (0.0-1.0) mg/dL AST (5-31) U/L ALT (0-31) U/L Alkaline Phosphatase (39-117) U/L Total Protein (6.5-8.0) g/dL Albumin (3.5-5.0) g/dL Urine Opiates Screen Not Detected (Not Detect) Urine Fentanyl Screen Not Detected (Not Detect) Ur Barbiturates Screen Not Detected (Not Detect) Ur Phencyclidine Scrn Not Detected (Not Detect) Ur Amphetamines Screen Not Detected (Not Detect) U Benzodiazepines Scrn Not Detected (Not Detect) [place] 0.10 L (0.60-1.20) mmol/L Urine Cocaine Screen Not Detected (Not Detect) U Marijuana (THC) Screen Not Detected (Not Detect) COVID-19 (NICK) (Negative) COVID-19 Clin Com Discharge Plan Discharge Clinical Impression: Borderline personality disorder, Depression Patient Disposition: Home, Self-Care Instructions: Borderline Personality Disorder (DC) Additional Instructions: Take your medications as prescribed. If you were prescribed antibiotics today, it is important that you take your medication to their entirety, do not skip any doses, do not finish them early. Follow-up with your primary care provider this week. Return to the emergency department with new or worsening symptoms. In case of emergency call 911 Prescriptions: No Action polyethylene glycol 3350 [Miralax] 17 gram Powder In Packet 17 g PO DAILY PRN (Reason: Constipation) RF: 0 metformin 500 mg tablet 1 tab PO BID RF: 0 atorvastatin 10 mg tablet 1 tab PO DAILY RF: 0 pantoprazole 40 mg tablet,delayed release (DR/EC) 1 tab PO BID@0630,1630 RF: 0 verapamil 240 mg tablet extended release 1 tab PO BEDTIME RF: 0 montelukast 10 mg tablet 1 tab PO BEDTIME RF: 0 ferrous sulfate 325 mg (65 mg iron) tablet,delayed release (DR/EC) 1 tab PO DAILY RF: 0 Flovent HFA 110 mcg/actuation HFA aerosol inhaler 2 puff inhalation BID RF: 0 norethindrone (contraceptive) [Deblitane] 0.35 mg Tablet 0.35 mg PO DAILY RF: 0 albuterol sulfate [Ventolin HFA] 90 mcg/actuation HFA aerosol inhaler 2 puff inhalation Q4H PRN (Reason: Shortness Of Breath) RF: 0 trazodone 150 mg tablet 100 mg PO BEDTIME PRN (Reason: insomnia) RF: 0 benztropine 0.5 mg Tablet 0.5 mg PO BID PRN (Reason: EPS) 30 Days Qty: 60 RF: 0 hydroxyzine HCl 50 mg Tablet 50 mg PO QID PRN (Reason: Anxiety) 30 Days Qty: 120 RF: 0 chlorpromazine 25 mg Tablet 50 mg PO QID 30 Days Qty: 240 RF: 0 clonidine HCl 0.1 mg tablet 0.1 mg PO BID@0830,1430 RF: 0 ibuprofen 600 mg Tablet 600 mg PO Q6H PRN (Reason: Mild Pain (Scale Score 1-4)) RF: 0 chlorpromazine 25 mg Tablet 75 mg PO Q4H PRN (Reason: agitation) 30 Days Qty: 300 RF: 0 nystatin 100,000 unit/gram Cream 1 appl topical BID 15 Days Qty: 5 RF: 0 fluoxetine 20 mg Capsule 40 mg PO DAILY 30 Days Qty: 60 RF: 0 clonazepam 0.5 mg Tablet 0.5 mg PO QID PRN (Reason: anxiety/AH) 30 Days Qty: 60 RF: 0 prazosin 1 mg Capsule 4 mg PO BEDTIME 30 Days Qty: 120 RF: 0 lithium carbonate 450 mg Tablet Extended Release 450 mg PO BEDTIME 30 Days Qty: 30 RF: 0 mirtazapine 7.5 mg Tablet 7.5 mg PO BEDTIME MRX1 30 Days Qty: 60 RF: 0 Referrals: Maribel Marquez NP [Primary Care Provider] - 2 days Stand Alone Forms: Work/School Release Interventions: ED Discharge Assessment Last Done: 11/06/21 20:52
[2021-11-06 16:01] VITALS: BP 154/106; PULSE 62; RESP 18; TEMP 36.8; O2SAT 98
[2021-11-06 16:16] VITALS: BMI 37.9
--- NOTE | 2021-11-06 17:20 | PC.NURSE ---
SMART SHEET COMPLETED
[2021-11-06 17:27] LABS: MANUAL DIFF FLAG NO
[2021-11-06 17:29] LABS: Basophils Percent Auto 0.4 % (0-2); Eosinophils Absolute Auto 0.3 X10*3/uL (0.0-0.4); Eosinophils Percent Auto 4.1 % (0-4); Hematocrit 36.3 % (37.0-47.0); Hemoglobin 11.9 g/dl (12.0-16.0); Imm Gran Abs Auto 0.03 X10*3/uL (0.00-0.03); Imm Gran Pct Auto 0.4 % (0.0-0.4); Lymphocytes Absolute Auto 1.8 X10*3/uL (1.2-4.9); Mean Corpuscular HGB Conc 32.8 g/dl (31.0-35.0); Mean Corpuscular Hemoglobin 30.4 pg (27.0-33.0); Mean Corpuscular Volume 92.6 fL (80.0-98.0); Monocytes Absolute Auto 0.6 X10*3/uL (0.1-1.2); Monocytes Percent Auto 7.7 % (2-11); Neutrophils Absolute Auto 5.2 x10*3/uL (2.0-8.3); Neutrophils Percent Auto 65.4 % (45-73); Platelet Count 251 X10*3/uL (160-400); Red Blood Count 3.92 X10*6/uL (4.20-5.50); Red Cell Distribution Width 12.6 % (11.0-16.0)
[2021-11-06 17:48] LABS: COVID-19 Test Negative (Negative)
[2021-11-06 17:58] LABS: Amphetamine Screen Urine Not Detected (Not Detect); Barbiturates, Urine Not Detected (Not Detect); Benzodiazepines Screen Urine Not Detected (Not Detect); Cannabinoid Screen Urine Not Detected (Not Detect); Cocaine Screen Urine Not Detected (Not Detect); Fentanyl, urine Not Detected (Not Detect); Opiate Screen Urine Not Detected (Not Detect); Phencyclidine Screen Urine Not Detected (Not Detect)
[2021-11-06 17:58] LABS: Alanine Aminotransferase 41 U/L (0-31); Alkaline Phosphatase 98 U/L (39-117); Anion Gap 13 (12-20); Aspartate Amino Transferase 25 U/L (5-31); Bilirubin Total < 0.2 mg/dL (0.0-1.0); Blood Urea Nitrogen 8 mg/dL (9-16); Calcium 9.3 mg/dL (8.4-10.2); Carbon Dioxide 27 mmol/L (22-29); Chloride 104 mmol/L (96-108); Creatinine Clr Calc Pharmacy 109.5; Estimated Glomerular Filt Rate > 60; Glucose Random 127 mg/dL (60-115); Magnesium 1.8 mg/dL (1.6-2.6); Potassium 3.8 mmol/L (3.3-5.1); Sodium 140 mmol/L (135-145); Total Protein 6.6 g/dL (6.5-8.0)
[2021-11-06 20:21] VITALS: BP 170/91; PULSE 99; TEMP 37.1; O2SAT 97
== END 2021-11-06 21:10 | disposition home or self-care (01) ==
PROVIDERS: Physician Assistant; Emergency Provider Emergency Medicine; PCP Nurse Practitioner Family
DX: F33.1 Major depressive disorder, recurrent, moderate (principal); R45.851 Suicidal ideations; Z20.822 Contact with and (suspected) exposure to COVID-19; Z79.899 Other long term (current) drug therapy; Z87.891 Personal history of nicotine dependence
CPT/HCPCS: 80053; 80178; 80307; 83735; 85025; 87635; 99283

== ENCOUNTER 2021-11-07 12:42 | Emergency (ER) | payer MEDICARE, MEDICAID, SELFPAY ==
[2021-11-07 12:47] VITALS: BP 159/92; PULSE 103; RESP 20; TEMP 36.6; O2SAT 97; BMI 38.9
--- NOTE | 2021-11-07 13:19 | ED_ITS ---
HPI - Psych General Chief Complaint: Psychiatric Symptoms Stated Complaint: CRISIS Time Seen by Provider: 11/07/21 13:03 Source: patient, EMS and old records reviewed Mode of arrival: EMS Limitations: no limitations History of Present Illness HPI Narrative: 45-year-old female with history of PTSD, borderline personality disorder, depression, bipolar 2 with melancholic features, DM, GERD who presents to the ER today for psychiatric evaluation. She reports feeling like she is 7 years old again and keeps asking to go out for cigarettes at her long-term. She reports intense nicotine cravings even though she continues to smoke. She reports she thinks she needs to go inpatient. She does not feel safe at home and has been engaging in more cutting behavior. MD complaint: feels depressed and anxiety Onset (ago): unknown Duration: constant History of same: Yes Relieving factors: none Exacerbating factors: none Associated psychiatric symptoms: depression and racing thoughts Associated symptoms: headache Treatments prior to arrival: none If self harm: admits thoughts of self harm and self-inflicted trauma Related Data Home Medications Medication Instructions Recorded Confirmed polyethylene glycol 3350 17 gram 17 g PO DAILY PRN 02/12/21 11/05/21 oral powder packet (Miralax) atorvastatin 10 mg tablet 1 tab PO DAILY 05/29/21 11/05/21 ferrous sulfate 325 mg (65 mg 1 tab PO DAILY 05/29/21 11/05/21 iron) tablet,delayed release fluticasone propionate 110 2 puff INHALATION BID 05/29/21 11/05/21 mcg/actuation HFA aerosol inhaler (Flovent HFA) metformin 500 mg tablet 1 tab PO BID 05/29/21 11/05/21 montelukast 10 mg tablet 1 tab PO BEDTIME 05/29/21 11/05/21 norethindrone (contraceptive) 0.35 0.35 mg PO DAILY 05/29/21 11/05/21 mg tablet (Deblitane) pantoprazole 40 mg tablet,delayed 1 tab PO BID@0630,1630 05/29/21 11/05/21 release verapamil 240 mg tablet,extended 1 tab PO BEDTIME 05/29/21 11/05/21 release albuterol sulfate 90 mcg/actuation 2 puff INHALATION Q4H PRN 06/15/21 11/05/21 aerosol inhaler (Ventolin HFA) clonidine HCl 0.1 mg tablet 0.1 mg PO BID@0830,1430 08/26/21 11/05/21 ibuprofen 600 mg tablet 600 mg PO Q6H PRN 09/19/21 11/05/21 trazodone 150 mg tablet 100 mg PO BEDTIME PRN 11/05/21 11/05/21 Previous Rx's Medication Instructions Recorded benztropine 0.5 mg tablet 0.5 mg PO BID PRN 30 Days #60 tab 07/27/21 hydroxyzine HCl 50 mg tablet 50 mg PO QID PRN 30 Days #120 tab 07/27/21 chlorpromazine 25 mg tablet 50 mg PO QID 30 Days #240 tab 08/15/21 chlorpromazine 25 mg tablet 75 mg PO Q4H PRN 30 Days #300 tab 09/29/21 clonazepam 0.5 mg tablet 0.5 mg PO QID PRN 30 Days #60 tab 09/29/21 fluoxetine 20 mg capsule 40 mg PO DAILY 30 Days #60 cap 09/29/21 nystatin 100,000 unit/gram topical 1 appl TOPICAL BID 15 Days #5 g 09/29/21 cream lithium carbonate 450 mg 450 mg PO BEDTIME 30 Days #30 tab 10/18/21 tablet,extended release mirtazapine 7.5 mg tablet 7.5 mg PO BEDTIME MRX1 30 Days #60 10/18/21 tab prazosin 1 mg capsule 4 mg PO BEDTIME 30 Days #120 cap 10/18/21 Allergies Allergy/AdvReac Type Severity Reaction Status Date / Time Fish Containing Products Allergy Severe ANAPHYLAXIS Verified 11/05/21 21:13 codeine [Codeine] Allergy Unknown RASH Verified 11/05/21 21:13 Penicillins Allergy Unknown RASH Verified 11/05/21 21:13 prednisone [Prednisone] Allergy Unknown RASH Verified 11/05/21 21:13 Sulfa (Sulfonamide Allergy Unknown RASH Verified 11/05/21 21:13 Antibiotics) [Sulfa (Sulfonamides)] azithromycin [AZITHROMYCIN] AdvReac Severe RASH Verified 11/05/21 21:13 nicotine AdvReac Unknown HEART Verified 11/05/21 21:13 PALPITATION TO NICOTINE GUM Seafood Allergy Severe ANAPHYLAXIS Uncoded 11/05/21 21:13 From Geodon Allergy Unknown DYSURIA, Uncoded 11/05/21 21:13 RASH Review of Systems Review of Systems: Constitutional: No Fever, No Chills ENT/Mouth: No sore throat, No Rhinorrhea, No Swallowing Difficulty Cardiovascular: No Chest Pain, No SOB Respiratory: No Cough, No Sputum, No Wheezing, No dyspnea Gastrointestinal: No Nausea, No Vomiting, No Diarrhea, No abdominal Pain Genitourinary: No Dysuria, No Urinary Frequency, No Hematuria Musculoskeletal: No joint pain, No Myalgias Skin: +Skin Lesions, No rash Neuro: No Weakness, No Numbness, No Dizziness, No Headache Psych: + Anxiety/Panic, + Depression, +SI, No AH, No VH Heme/Lymph: No Bruising, No Lymphadenopathy Endocrine: No Polyuria, No Polydipsia [facility] Past Medical History Attestation statement: The following information was validated with the patient. Medical History Bronchitis Diabetes type 2, controlled GERD (gastroesophageal reflux disease) Hyperlipidemia MDD (major depressive disorder), recurrent episode, severe Mood disorder Overdose PTSD (post-traumatic stress disorder) Social History Social History 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: None 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 Other:: Patient lives in long-term. 4 in total live in long-term. Housing: Other Housing Other:: custodial Do you presently have visiting nurse or other home services: No (Medication administered by long-term staff) Unable to assess alcohol history related to: Unknown Alcohol intake: never Patient Tobacco Use Status: Current everyday Tobacco user Tobacco use type: Cigarette Cigarette Packs Per Day: 1 Cigarettes Per Day: 20 Years Smoked: 20 e-Cigarette/Vaping Use: Never Used Second Hand Smoke Exposure: Yes Use of substances other than those prescribed or required for medical reasons: No Substance Use Type: Caffiene Advance Directives: No Advance Directives Information Provided: Yes service: No Sexual orientation: Don't Know Physical Exam Vital Signs: Vital Signs: Last Vital Signs Temp 97.8 F 11/07/21 12:47 Pulse 103 H 11/07/21 12:47 Resp 20 11/07/21 12:47 BP 159/92 H 11/07/21 12:47 Pulse Ox 97 11/07/21 12:47 BMI result Body Mass Index 38.9 Appearance: Alert. Oriented X3. Anxious, rocking back and fourth in the bed Eyes: Pupils equal, round and reactive to light. ENT: Pharynx normal. Neck: Normal inspection. Neck supple. CVS: Normal heart rate and rhythm. Pulses normal. Respiratory: No respiratory distress. Breath sounds normal. Abdomen: Soft and nontender. +BS x4 Skin: Skin warm and dry. Normal skin color. Normal skin turgor. No rashes. Extremities: No lower extremity edema. Bilateral forearms with both fresh and old, scarred superficial linear lacerations. no deep lacs, no signs of infection. Neuro/psych: Oriented X 3. No motor deficit. No sensory deficit. Makes eye contact and engages well in conversation, anxious. poor insight and judgement. Course Course Course Narrative: 45 y/o female with history of borderline personality disorder, bipolar to, depression, anxiety, self cutting, PTSD, DM, GERD who presents to the ER ?not feeling safe at home & feeling like I'm 7 yo again. She cannot elaborate why she feels this way. She heard member of her staff at the long-term say that she discuss her so for attention. Suspect this made the patient more upset. She is anxious and rocking back and forth in the stretcher. She is asking for something to help calm her down. Will order her small dose of oral Ativan and have her assessed by the crisis team. Of note she was recently admitted here multiple times recently and last was 10/13-10/18. Reevaluation(s) Reevaluation #1: Physician observation started at 2:25pm. Patient placed in physician observation because patient is awaiting [facility] evaluation for the possible need of inpatient psych admission. At the time observation was started patient's vital signs were stable. Patient is alert and oriented. Neuro exam is non-focal. CV: RRR and lungs are clear. Will continue to monitor. MDM - Psych Lab Data Labs: Lab Results 11/07/21 11/07/21 Range/Units 13:27 13:56 Urine Opiates Screen Not Detected (Not Detect) Urine Fentanyl Screen Not Detected (Not Detect) Ur Barbiturates Screen Not Detected (Not Detect) Ur Phencyclidine Scrn Not Detected (Not Detect) Ur Amphetamines Screen Not Detected (Not Detect) U Benzodiazepines Scrn Not Detected (Not Detect) Urine Cocaine Screen Not Detected (Not Detect) U Marijuana (THC) Screen Not Detected (Not Detect) COVID-19 ([facility]ICK) Negative (Negative) COVID-19 Clin Com See Note Discharge Plan Discharge Clinical Impression: Bipolar disorder Patient Disposition: Still a Patient Prescriptions: No Action polyethylene glycol 3350 [Miralax] 17 gram Powder In Packet 17 g PO DAILY PRN (Reason: Constipation) RF: 0 metformin 500 mg tablet 1 tab PO BID RF: 0 atorvastatin 10 mg tablet 1 tab PO DAILY RF: 0 pantoprazole 40 mg tablet,delayed release (DR/EC) 1 tab PO BID@0630,1630 RF: 0 verapamil 240 mg tablet extended release 1 tab PO BEDTIME RF: 0 montelukast 10 mg tablet 1 tab PO BEDTIME RF: 0 ferrous sulfate 325 mg (65 mg iron) tablet,delayed release (DR/EC) 1 tab PO DAILY RF: 0 Flovent HFA 110 mcg/actuation HFA aerosol inhaler 2 puff inhalation BID RF: 0 norethindrone (contraceptive) [Deblitane] 0.35 mg Tablet 0.35 mg PO DAILY RF: 0 albuterol sulfate [Ventolin HFA] 90 mcg/actuation HFA aerosol inhaler 2 puff inhalation Q4H PRN (Reason: Shortness Of Breath) RF: 0 trazodone 150 mg tablet 100 mg PO BEDTIME PRN (Reason: insomnia) RF: 0 benztropine 0.5 mg Tablet 0.5 mg PO BID PRN (Reason: EPS) 30 Days Qty: 60 RF: 0 hydroxyzine HCl 50 mg Tablet 50 mg PO QID PRN (Reason: Anxiety) 30 Days Qty: 120 RF: 0 chlorpromazine 25 mg Tablet 50 mg PO QID 30 Days Qty: 240 RF: 0 clonidine HCl 0.1 mg tablet 0.1 mg PO BID@0830,1430 RF: 0 ibuprofen 600 mg Tablet 600 mg PO Q6H PRN (Reason: Mild Pain (Scale Score 1-4)) RF: 0 chlorpromazine 25 mg Tablet 75 mg PO Q4H PRN (Reason: agitation) 30 Days Qty: 300 RF: 0 nystatin 100,000 unit/gram Cream 1 appl topical BID 15 Days Qty: 5 RF: 0 fluoxetine 20 mg Capsule 40 mg PO DAILY 30 Days Qty: 60 RF: 0 clonazepam 0.5 mg Tablet 0.5 mg PO QID PRN (Reason: anxiety/AH) 30 Days Qty: 60 RF: 0 prazosin 1 mg Capsule 4 mg PO BEDTIME 30 Days Qty: 120 RF: 0 lithium carbonate 450 mg Tablet Extended Release 450 mg PO BEDTIME 30 Days Qty: 30 RF: 0 mirtazapine 7.5 mg Tablet 7.5 mg PO BEDTIME MRX1 30 Days Qty: 60 RF: 0
[2021-11-07] MEDS: LORazepam 1 MG TABLET PO (13:20)
[2021-11-07] MEDS: Acetaminophen 325 MG TABLET 650 MG PO (13:20)
[2021-11-07 13:52] LABS: COVID-19 Test Negative (Negative)
[2021-11-07 14:20] LABS: Amphetamine Screen Urine Not Detected (Not Detect); Barbiturates, Urine Not Detected (Not Detect); Benzodiazepines Screen Urine Not Detected (Not Detect); Cannabinoid Screen Urine Not Detected (Not Detect); Cocaine Screen Urine Not Detected (Not Detect); Fentanyl, urine Not Detected (Not Detect); Opiate Screen Urine Not Detected (Not Detect); Phencyclidine Screen Urine Not Detected (Not Detect)
[2021-11-07] MEDS: Nicotine 14 MG PATCH.TD24 TRANSDERMA (14:42)
--- NOTE | 2021-11-07 16:19 | MHC.CARE ---
CARE Team spoke with patient in the ED, she was easily engaged, alert and oriented, affect bright not congruent with situation. Stated that she has been dissociating back to her childhood trauma, voices telling her to self harm. Patient come to the ED multiple times lately with similar presentations, this is the 4th in the last week. She noted that she has been positive lately, using coping skills, made a daily schedule, keeping her room clean and applied for a job at [employer] so she does not understand how she can be so disregulated. Call to patient?s nursing home staff, Karin and prep room supervisor, Toni who have know patient for many years and know her well. They reported patient?s behavior is predictable and today was no different, she was triggered by staff trying to have an honest conversation with her about why she came to the hospital over the weekend. By report, she was upset by the talk but seemed to be fine and a short time later called 911 from her room without communicating with staff. In addition, staff explained that patient is in constant need of 1:1 attention, if a clinician has to disengage to take a phone call or make chart notes patient will often go to her room and call 911, staff do not know there is an issue until the sports development officer arrive. They feel she does not try to use coping skills or staff to help even if they are available. At this time they are considering her to be at baseline, said ?Lucita belongs here with us, she is loved and cared for here and does not need to be hospitalized,? and appeared to genuine in their regard for her. They want [facility] staff to know that [facility] immediately sends her home, have told patient that she is misusing medical resources. Spoke to patient about the conversation with staff and she asked to be discharged home, said that she wants to try. Discussed checking in with staff prior to calling 911, patient said that sometimes she calls [facility] Crisis for support but they often send the ambulance based on what she tells them, agreed to give staff an opportunity to help her before calling for an ambulance. Spoke to ED provider, TIMI Lopez and prep room supervisor, ANGELA Hamilton regarding disposition. RACHEAL was provider for patient?s return to the nursing home.
== END 2021-11-07 16:11 | disposition home or self-care (01) ==
PROVIDERS: Physician Assistant; Emergency Provider Emergency Medicine
DX: F31.9 Bipolar disorder, unspecified (principal); R45.851 Suicidal ideations; F32.A Depression, unspecified; F41.9 Anxiety disorder, unspecified; F60.3 Borderline personality disorder; F43.10 Post-traumatic stress disorder, unspecified; F39 Unspecified mood [affective] disorder; E11.9 Type 2 diabetes mellitus without complications; E78.5 Hyperlipidemia, unspecified; F17.200 Nicotine dependence, unspecified, uncomplicated; Z91.52 Personal history of nonsuicidal self-harm; Z72.89 Other problems related to lifestyle; Z79.02 Long term (current) use of antithrombotics/antiplatelets; Z79.899 Other long term (current) drug therapy; Z20.822 Contact with and (suspected) exposure to COVID-19
CPT/HCPCS: 80307; 87635; 99284

== ENCOUNTER 2021-11-08 21:44 | Emergency (ER) | payer MEDICARE, MEDICAID, SELFPAY ==
[2021-11-08 21:50] VITALS: BP 142/77; PULSE 110; RESP 16; TEMP 37.2; O2SAT 98; BMI 38.0
--- NOTE | 2021-11-08 21:54 | ED_ITS ---
HPI - Psych General Chief Complaint: Psychiatric Symptoms Stated Complaint: SI Source: patient and EMS Mode of arrival: EMS Limitations: no limitations History of Present Illness HPI Narrative: 45-year-old female presents via EMS for crisis evaluation. Patient is well-known to this facility and has care plan in place that has been developed by [facility]. LE complaint: suicidal ideation, feels depressed and anxiety Onset (ago): year(s) Duration: constant History of same: Yes Relieving factors: none Associated psychiatric symptoms: depression, suicidal ideation and racing thoughts Associated symptoms: denies other symptoms Treatments prior to arrival: none If self harm: admits thoughts of self harm Related Data Home Medications Medication Instructions Recorded Confirmed polyethylene glycol 3350 17 gram 17 g PO DAILY PRN 02/12/21 11/08/21 oral powder packet (Miralax) atorvastatin 10 mg tablet 1 tab PO DAILY 05/29/21 11/08/21 ferrous sulfate 325 mg (65 mg 1 tab PO DAILY 05/29/21 11/08/21 iron) tablet,delayed release fluticasone propionate 110 2 puff INHALATION BID 05/29/21 11/08/21 mcg/actuation HFA aerosol inhaler (Flovent HFA) metformin 500 mg tablet 1 tab PO BID 05/29/21 11/08/21 montelukast 10 mg tablet 1 tab PO BEDTIME 05/29/21 11/08/21 norethindrone (contraceptive) 0.35 0.35 mg PO DAILY 05/29/21 11/08/21 mg tablet (Deblitane) pantoprazole 40 mg tablet,delayed 1 tab PO BID@0630,1630 05/29/21 11/08/21 release verapamil 240 mg tablet,extended 1 tab PO BEDTIME 05/29/21 11/08/21 release albuterol sulfate 90 mcg/actuation 2 puff INHALATION Q4H PRN 06/15/21 11/08/21 aerosol inhaler (Ventolin HFA) clonidine HCl 0.1 mg tablet 0.1 mg PO BID@0830,1430 08/26/21 11/08/21 ibuprofen 600 mg tablet 600 mg PO Q6H PRN 09/19/21 11/08/21 trazodone 150 mg tablet 100 mg PO BEDTIME PRN 11/05/21 11/08/21 Previous Rx's Medication Instructions Recorded benztropine 0.5 mg tablet 0.5 mg PO BID PRN 30 Days #60 tab 07/27/21 hydroxyzine HCl 50 mg tablet 50 mg PO QID PRN 30 Days #120 tab 07/27/21 chlorpromazine 25 mg tablet 50 mg PO QID 30 Days #240 tab 08/15/21 chlorpromazine 25 mg tablet 75 mg PO Q4H PRN 30 Days #300 tab 09/29/21 clonazepam 0.5 mg tablet 0.5 mg PO QID PRN 30 Days #60 tab 09/29/21 fluoxetine 20 mg capsule 40 mg PO DAILY 30 Days #60 cap 09/29/21 nystatin 100,000 unit/gram topical 1 appl TOPICAL BID 15 Days #5 g 09/29/21 cream lithium carbonate 450 mg 450 mg PO BEDTIME 30 Days #30 tab 10/18/21 tablet,extended release mirtazapine 7.5 mg tablet 7.5 mg PO BEDTIME MRX1 30 Days #60 10/18/21 tab prazosin 1 mg capsule 4 mg PO BEDTIME 30 Days #120 cap 10/18/21 Allergies Allergy/AdvReac Type Severity Reaction Status Date / Time Fish Containing Products Allergy Severe ANAPHYLAXIS Verified 11/05/21 21:13 codeine [Codeine] Allergy Unknown RASH Verified 11/05/21 21:13 Penicillins Allergy Unknown RASH Verified 11/05/21 21:13 prednisone [Prednisone] Allergy Unknown RASH Verified 11/05/21 21:13 Sulfa (Sulfonamide Allergy Unknown RASH Verified 11/05/21 21:13 Antibiotics) [Sulfa (Sulfonamides)] azithromycin [AZITHROMYCIN] AdvReac Severe RASH Verified 11/05/21 21:13 nicotine AdvReac Unknown HEART Verified 11/05/21 21:13 PALPITATION TO NICOTINE GUM Seafood Allergy Severe ANAPHYLAXIS Uncoded 11/05/21 21:13 From Geodon Allergy Unknown DYSURIA, Uncoded 11/05/21 21:13 RASH Review of Systems Review of Systems: Constitutional: No Fever, No Chills ENT/Mouth: No Ear Pain, No Nasal Congestion, No sore throat Eyes: No Eye Pain, No Swelling, No Redness Cardiovascular: No Chest Pain, No SOB Respiratory: No Cough, No Sputum, No Dyspnea Gastrointestinal: No Nausea, No Vomiting, No Diarrhea, No Hematochezia, No Carlos na Genitourinary: No Dysuria, No Urinary Frequency, No Hematuria Musculoskeletal: No Myalgias Skin: No Skin Lesions, No rash Neuro: No Weakness, No Numbness, No Paresthesias, No Dizziness, No Headache Psych: positive Anxiety, positive Depression, positive SI Heme/Lymph: No Lymphadenopathy Endocrine: No Polyuria, No Polydipsia Yes all other systems are reviewed and are negative [facility] Past Medical History Attestation statement: The following information was validated with the patient. Source: old records reviewed Medical History Bronchitis Diabetes type 2, controlled GERD (gastroesophageal reflux disease) Hyperlipidemia MDD (major depressive disorder), recurrent episode, severe Mood disorder Overdose PTSD (post-traumatic stress disorder) Social History Social History 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: None 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 Other:: Patient lives in skilled nursing. 4 in total live in skilled nursing. Housing: Other Housing Other:: senior living Do you presently have visiting nurse or other home services: No (Medication administered by skilled nursing staff) Unable to assess alcohol history related to: Unknown Alcohol intake: never Patient Tobacco Use Status: Current everyday Tobacco user Tobacco use type: Cigarette Cigarette Packs Per Day: 1 Cigarettes Per Day: 20 Years Smoked: 20 e-Cigarette/Vaping Use: Never Used Second Hand Smoke Exposure: Yes Substance Use Type: Caffiene Advance Directives: No Advance Directives Information Provided: Yes Patient : No service: No Sexual orientation: Don't Know Physical Exam Vital Signs: Vital Signs: Last Vital Signs Temp 98.9 F 11/08/21 21:50 Pulse 110 H 11/08/21 21:50 Resp 16 11/08/21 21:50 BP 142/77 H 11/08/21 21:50 Pulse Ox 98 11/08/21 21:50 BMI result Body Mass Index 38.0 Appearance: Alert. Oriented X3. Moderate emotional distress. Eyes: Pupils equal, round and reactive to light. ENT: Pharynx normal. Neck: Normal inspection. Neck supple. CVS: Normal heart rate and rhythm. Pulses normal. Respiratory: No respiratory distress. Breath sounds normal. Abdomen: Soft and nontender. Skin: Skin warm and dry. Normal skin color. Normal skin turgor. Extremities: No lower extremity edema. Gait well-balanced well coordinated. Neuro: No motor deficit. No sensory deficit. Cranial nerves 2-12 intact. Course Course Course Narrative: 45-year-old female presents via EMS for crisis evaluation from a skilled nursing. Patient is well-known to this facility and there is a care plan in place. Will assess in the morning per care plan that was developed by [facility]. Patient has no physical complaints at this time. Gait is well balanced, cranial nerves 2-12 intact 12:24 a.m. physician observation at this time. MDM - Psych Differential Diagnosis Differential diagnosis: Likely suicidal ideation, depression, acute anxiety and mood disorder Medical Records Attestation: I reviewed the patient's medical records. Lab Data Attestation: I reviewed the patient's lab results. Labs: Lab Results 11/08/21 Range/Units 22:01 COVID-19 ([facility]ICK) Negative (Negative) COVID-19 Clin Com See Note Discharge Plan Discharge Clinical Impression: Borderline personality disorder Depression Qualifiers: Depression Type: major depressive disorder Major depression recurrence: recurrent Active/Remission status: currently active Major depression episode severity: moderate Qualified Code(s): F33.1 - Major depressive disorder, recurrent, moderate Patient Disposition: Still a Patient Prescriptions: No Action polyethylene glycol 3350 [Miralax] 17 gram Powder In Packet 17 g PO DAILY PRN (Reason: Constipation) RF: 0 metformin 500 mg tablet 1 tab PO BID RF: 0 atorvastatin 10 mg tablet 1 tab PO DAILY RF: 0 pantoprazole 40 mg tablet,delayed release (DR/EC) 1 tab PO BID@0630,1630 RF: 0 verapamil 240 mg tablet extended release 1 tab PO BEDTIME RF: 0 montelukast 10 mg tablet 1 tab PO BEDTIME RF: 0 ferrous sulfate 325 mg (65 mg iron) tablet,delayed release (DR/EC) 1 tab PO DAILY RF: 0 Flovent HFA 110 mcg/actuation HFA aerosol inhaler 2 puff inhalation BID RF: 0 norethindrone (contraceptive) [Deblitane] 0.35 mg Tablet 0.35 mg PO DAILY RF: 0 albuterol sulfate [Ventolin HFA] 90 mcg/actuation HFA aerosol inhaler 2 puff inhalation Q4H PRN (Reason: Shortness Of Breath) RF: 0 trazodone 150 mg tablet 100 mg PO BEDTIME PRN (Reason: insomnia) RF: 0 benztropine 0.5 mg Tablet 0.5 mg PO BID PRN (Reason: EPS) 30 Days Qty: 60 RF: 0 hydroxyzine HCl 50 mg Tablet 50 mg PO QID PRN (Reason: Anxiety) 30 Days Qty: 120 RF: 0 chlorpromazine 25 mg Tablet 50 mg PO QID 30 Days Qty: 240 RF: 0 clonidine HCl 0.1 mg tablet 0.1 mg PO BID@0830,1430 RF: 0 ibuprofen 600 mg Tablet 600 mg PO Q6H PRN (Reason: Mild Pain (Scale Score 1-4)) RF: 0 chlorpromazine 25 mg Tablet 75 mg PO Q4H PRN (Reason: agitation) 30 Days Qty: 300 RF: 0 nystatin 100,000 unit/gram Cream 1 appl topical BID 15 Days Qty: 5 RF: 0 fluoxetine 20 mg Capsule 40 mg PO DAILY 30 Days Qty: 60 RF: 0 clonazepam 0.5 mg Tablet 0.5 mg PO QID PRN (Reason: anxiety/AH) 30 Days Qty: 60 RF: 0 prazosin 1 mg Capsule 4 mg PO BEDTIME 30 Days Qty: 120 RF: 0 lithium carbonate 450 mg Tablet Extended Release 450 mg PO BEDTIME 30 Days Qty: 30 RF: 0 mirtazapine 7.5 mg Tablet 7.5 mg PO BEDTIME MRX1 30 Days Qty: 60 RF: 0
[2021-11-08 22:33] LABS: COVID-19 Test Negative (Negative)
[2021-11-09 06:25] VITALS: BP 118/72; PULSE 88; RESP 17; TEMP 36.8; O2SAT 95
--- NOTE | 2021-11-09 06:31 | PC.NURSE ---
Patient slept through the night, no distress observed/reported, behavior appropriate, med rec completed/pending provider's approval, care team assessment in the morning, VS at baseline, will continue to monitor.
[2021-11-09 07:11] LABS: Amphetamine Screen Urine Not Detected (Not Detect); Barbiturates, Urine Not Detected (Not Detect); Benzodiazepines Screen Urine Not Detected (Not Detect); Cannabinoid Screen Urine Not Detected (Not Detect); Cocaine Screen Urine Not Detected (Not Detect); Fentanyl, urine Not Detected (Not Detect); Opiate Screen Urine Not Detected (Not Detect); Phencyclidine Screen Urine Not Detected (Not Detect)
--- NOTE | 2021-11-09 07:23 | PC.NURSE ---
patient appears to have no behavioral issues or concerns this am, preparing to be discharged patient appears in no distress
--- NOTE | 2021-11-09 07:34 | MHC.CARE ---
Pt is a 45 y/o single, , Sammarinese speaking, female, who is previously known to the CARE Team through prior assessments, ED visits and in patient stays.? Yesterday, she was transported to this facility via EMS after half-way staff discovered that she had broken a container she keeps spare change in and was cutting herself with the broken shards.? She endorses command auditory hallucinations, stating that they were ?Loud? yesterday but that she is ?good? today and able to maintain safety.? Pt has been medically cleared and is being assessed by the CARE Team to determine appropriate treatment recommendations. Pt has an extensive hx of inpt hospitalizations, and is known to engage in unsafe. Past documented hx of Major depressive d/o,?PTSD, and Borderline personality d/o. Pt has a hx of self-harm and suicide attempts. Pt is alert and oriented x4 and is assessed by CARE Team in her room in the behavioral health pod.? She is awoken by CARE Team for the assessment.? Pt is neat in appearance and appears older than her stated age.? Pt's eye contact and speech are within normal limits.? She reports good sleep last night and reports her appetite as good.? She describes her mood as ?fine? and ?good?.? Pt's affect is variable.? She reports hearing voices but they are not as loud as yesterday.?? She denies SI, , HI and self-harm urges.? No thoughts of harm to others.? Insight, judgement, memory and concentration appear good. Pt's functioning today appears to be at her baseline.? She reports auditory hallucinations, but these are ever present to varying degrees at her baseline.? The plan is for pt to be discharged back to the half-way.? CARE Team will secure a ride for pt.? This disposition was discussed with and agreed upon by ED Provider Dr. Rowell, and pt?s nurse WALKER Still. CARE Team contacted the half-way to advise them that pt will be discharged back to the half-way.? CARE Team with secure a Lyft for pt. F33.0 - Major depressive d/o, recurrent episode, mild, F43.10 - Post Traumatic Stress d/o, F60.3 - Borderline personality d/o ?
== END 2021-11-09 07:37 | disposition home or self-care (01) ==
PROVIDERS: Nurse Practitioner Family; Emergency Provider Student in an Organized Health Care Education/Training Program
DX: F33.1 Major depressive disorder, recurrent, moderate (principal); R45.851 Suicidal ideations; F41.9 Anxiety disorder, unspecified; F43.0 Acute stress reaction; Z20.822 Contact with and (suspected) exposure to COVID-19; Z79.899 Other long term (current) drug therapy
CPT/HCPCS: 80307; 87635; 99283; 99284

== ENCOUNTER 2021-11-11 09:09 | Emergency (ER) | payer MEDICARE, MEDICAID, SELFPAY ==
--- NOTE | 2021-11-11 09:24 | ED_ITS ---
HPI - Psych General Chief Complaint: Psychiatric Symptoms Stated Complaint: crisis Time Seen by Provider: 11/11/21 09:17 Source: patient and EMS Mode of arrival: wheelchair Limitations: no limitations History of Present Illness HPI Narrative: Patient comes via ambulance from a retirement. Patient states that for the last 3-4 days she has been having auditory hallucinations, patient states that the voices are telling her to cut herself all over her body. Patient has multiple hewitt in her forearms but states that this time she has not injured herself. Patient denies suicidal or homicidal ideation. Related Data Home Medications Medication Instructions Recorded Confirmed polyethylene glycol 3350 17 17 g PO DAILY PRN 02/12/21 11/11/21 gram oral powder packet (Miralax) atorvastatin 10 mg tablet 1 tab PO DAILY 05/29/21 11/11/21 ferrous sulfate 325 mg (65 mg 1 tab PO DAILY 05/29/21 11/11/21 iron) tablet,delayed release fluticasone propionate 110 2 puff INHALATION BID 05/29/21 11/11/21 mcg/actuation HFA aerosol inhaler (Flovent HFA) metformin 500 mg tablet 1 tab PO BID 05/29/21 11/11/21 montelukast 10 mg tablet 1 tab PO BEDTIME 05/29/21 11/11/21 norethindrone (contraceptive) 0.35 mg PO DAILY 05/29/21 11/08/21 0.35 mg tablet (Deblitane) pantoprazole 40 mg 1 tab PO BID@0630,1630 05/29/21 11/11/21 tablet,delayed release verapamil 240 mg 1 tab PO BEDTIME 05/29/21 11/11/21 tablet,extended release albuterol sulfate 90 2 puff INHALATION Q4H PRN 06/15/21 11/11/21 mcg/actuation aerosol inhaler (Ventolin HFA) clonidine HCl 0.1 mg tablet 0.1 mg PO BID@0830,1430 08/26/21 11/11/21 ibuprofen 600 mg tablet 600 mg PO Q6H PRN 09/19/21 11/08/21 trazodone 150 mg tablet 100 mg PO BEDTIME PRN 11/05/21 11/11/21 Previous Rx's Medication Instructions Recorded benztropine 0.5 mg tablet 0.5 mg PO BID PRN 30 Days #60 tab 07/27/21 hydroxyzine HCl 50 mg tablet 50 mg PO QID PRN 30 Days #120 tab 07/27/21 chlorpromazine 25 mg tablet 50 mg PO QID 30 Days #240 tab 08/15/21 chlorpromazine 25 mg tablet 75 mg PO Q4H PRN 30 Days #300 tab 09/29/21 clonazepam 0.5 mg tablet 0.5 mg PO QID PRN 30 Days #60 tab 09/29/21 fluoxetine 20 mg capsule 40 mg PO DAILY 30 Days #60 cap 09/29/21 nystatin 100,000 unit/gram topical 1 appl TOPICAL BID 15 Days #5 g 09/29/21 cream lithium carbonate 450 mg 450 mg PO BEDTIME 30 Days #30 tab 10/18/21 tablet,extended release mirtazapine 7.5 mg tablet 7.5 mg PO BEDTIME MRX1 30 Days 10/18/21 #60 tab prazosin 1 mg capsule 4 mg PO BEDTIME 30 Days #120 cap 10/18/21 Allergies Allergy/AdvReac Type Severity Reaction Status Date / Time Fish Containing Allergy Severe ANAPHYLAXIS Verified 11/05/21 21:13 Products codeine [Codeine] Allergy Unknown RASH Verified 11/05/21 21:13 Penicillins Allergy Unknown RASH Verified 11/05/21 21:13 prednisone Allergy Unknown RASH Verified 11/05/21 21:13 [Prednisone] Sulfa (Sulfonamide Allergy Unknown RASH Verified 11/05/21 21:13 Antibiotics) [Sulfa (Sulfonamides)] azithromycin AdvReac Severe RASH Verified 11/05/21 21:13 [AZITHROMYCIN] nicotine AdvReac Unknown HEART Verified 11/05/21 21:13 PALPITATION TO NICOTINE GUM Seafood Allergy Severe ANAPHYLAXIS Uncoded 11/05/21 21:13 From Geodon Allergy Unknown DYSURIA, Uncoded 11/05/21 21:13 RASH Review of Systems Verdana 4l Review of Systems: Verdana 4d Verdana 4d Constitutional : No Weight loss, No Fever, No Chills, No Night Sweats, No Fatigue, No Malaise ENT/Mouth : No Hearing loss, No Ear Pain, No Nasal Congestion, No Sinus Pain, No Hoarseness, No sore throat, No Rhinorrhea, No Swallowing DifficultyDifficulty Eyes: No Eye Pain, No Swelling, No Redness, No Foreign Body, No Discharge, No Vision Changes Cardiovascular : No Chest Pain, No SOB, No Dyspnea on Exertion, No Orthopnea, No Edema, No Palpitations Respiratory : No Cough, No Sputum, No Wheezing, No Smoke Exposure, No Dyspnea Gastrointestinal : No Nausea, No Vomiting, No Diarrhea, No Constipation, No abdominal Pain, No Hematochezia, No Melena Genitourinary : no irregular bleeding, No Dysuria, No Urinary Frequency, No Hematuria, No Urinary Incontinence, No Urgency, No Flank Pain, No Urinary Flow Changes, No Hesitancy Musculoskeletal : No joint pain, No Myalgias, No Joint Swelling Skin : No Skin Lesions, No rash Neuro : No Weakness, No Numbness, No Paresthesias, No Loss of Consciousness, No Dizziness, No Headache Psych : No Anxiety/Panic, No Depression, No SI/HI/patient complaining of auditory hallucinations Heme/Lymph: No Bruising, No Bleeding,No Lymphadenopathy Endocrine : No Polyuria, No Polydipsia, No Temperature Intolerance PMFSH Past Medical History Medical History Bronchitis Diabetes type 2, controlled GERD (gastroesophageal reflux disease) Hyperlipidemia MDD (major depressive disorder), recurrent episode, severe Mood disorder Overdose PTSD (post-traumatic stress disorder) Social History Social History 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: None 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 Other:: Patient lives in retirement. 4 in total live in retirement. Housing: Other Housing Other:: [facility] Do you presently have visiting nurse or other home services: No (Medication administered by retirement staff) Unable to assess alcohol history related to: Unknown Alcohol intake: never Patient Tobacco Use Status: Current everyday Tobacco user Tobacco use type: Cigarette Cigarette Packs Per Day: 1 Cigarettes Per Day: 20 Years Smoked: 20 e-Cigarette/Vaping Use: Never Used Second Hand Smoke Exposure: Yes Substance Use Type: Caffiene Advance Directives: No Advance Directives Information Provided: Yes Patient : No service: No Sexual orientation: Don't Know Physical Exam Verdana 4l Vital Signs: Verdana 4d Verdana 4d Vital Signs: Verdana 4d Verdana 4Bd Last Vital Signs Verdana 4d Lpc New 4d Lpc New 4d Temp 98.8 F 11/11/21 09:34 Lpc New 4d Pulse 109 H 11/11/21 09:34 Lpc New 4d Resp 16 11/11/21 09:34 BP 140/93 H 11/11/21 09:34 Pulse Ox 98 11/11/21 09:34 BMI result Body Mass Index 40.9 Const: Other: Appearance: Alert. Oriented X3. No acute distress. Well-appearing Eyes: Pupils equal, round and reactive to light. ENT: Pharynx normal. Neck: Normal inspection. Neck supple. No lymph nodes noted. No crepitus CVS: Normal heart rate and rhythm. Pulses normal. Normal S1 and S2 Respiratory: No respiratory distress. Breath sounds normal. No Wheezing. No rales Abdomen: Soft and nontender. No rigidity. No distention. Skin: Skin warm and dry. All scar tissue and old lacerations to both forearms Extremities: No lower extremity edema. See skin above Neuro: Oriented X 3. No motor deficit. No sensory deficit. Moving all extermities. No slurred speech. Cranial nerves 2-12 grossly intact Psych: Calm, cooperative, states she is hearing voices. Course Course Course Narrative: Patient is well-known to [employer] [facility]. Consult pending. Physician observation started at 09:28 [facility] evaluated the patient. Patient is being returned to her retirement [facility] - Psych Lab Data Labs: Lab Results 11/11/21 11/11/21 11/11/21 Range/Units 10:05 10:37 10:37 Urine Test NEGATIVE (NEGATIVE) Urine Opiates Screen Not Detected (Not Detect) Urine Fentanyl Screen POSITIVE H (Not Detect) Ur Barbiturates Screen Not Detected (Not Detect) Ur Phencyclidine Scrn Not Detected (Not Detect) Ur Amphetamines Screen Not Detected (Not Detect) U Benzodiazepines Scrn Not Detected (Not Detect) Urine Cocaine Screen Not Detected (Not Detect) U Marijuana (THC) Screen Not Detected (Not Detect) COVID-19 (NICK) Negative (Negative) COVID-19 Clin Com See Note Discharge Plan Discharge Clinical Impression: Borderline personality disorder Patient Disposition: Home, Self-Care Instructions: Borderline Personality Disorder (DC) Additional Instructions: Please follow-up with your primary care physician tomorrow. If you have any worsening or new symptoms, please return to the emergency room or call 911 Prescriptions: No Action polyethylene glycol 3350 [Miralax] 17 gram Powder In Packet 17 g PO DAILY PRN (Reason: Constipation) 0RF metformin 500 mg tablet 1 tab PO BID 0RF atorvastatin 10 mg tablet 1 tab PO DAILY 0RF pantoprazole 40 mg tablet,delayed release (DR/EC) 1 tab PO BID@0630,1630 0RF verapamil 240 mg tablet extended release 1 tab PO BEDTIME 0RF montelukast 10 mg tablet 1 tab PO BEDTIME 0RF ferrous sulfate 325 mg (65 mg iron) tablet,delayed release (DR/EC) 1 tab PO DAILY 0RF Flovent HFA 110 mcg/actuation HFA aerosol inhaler 2 puff inhalation BID 0RF norethindrone (contraceptive) [Deblitane] 0.35 mg Tablet 0.35 mg PO DAILY 0RF albuterol sulfate [Ventolin HFA] 90 mcg/actuation HFA aerosol inhaler 2 puff inhalation Q4H PRN (Reason: Shortness Of Breath) 0RF trazodone 150 mg tablet 100 mg PO BEDTIME PRN (Reason: insomnia) 0RF benztropine 0.5 mg Tablet 0.5 mg PO BID PRN (Reason: EPS) 30 Days Qty: 60 0RF hydroxyzine HCl 50 mg Tablet 50 mg PO QID PRN (Reason: Anxiety) 30 Days Qty: 120 0RF chlorpromazine 25 mg Tablet 50 mg PO QID 30 Days Qty: 240 0RF clonidine HCl 0.1 mg tablet 0.1 mg PO BID@0830,1430 0RF Protocol: Hold for SBP< HOLD for SBP < : 90 ibuprofen 600 mg Tablet 600 mg PO Q6H PRN (Reason: Mild Pain (Scale Score 1-4)) 0RF chlorpromazine 25 mg Tablet 75 mg PO Q4H PRN (Reason: agitation) 30 Days Qty: 300 0RF nystatin 100,000 unit/gram Cream 1 appl topical BID 15 Days Qty: 5 0RF Protocol: Apply to: Apply to: under bilateral breasts fluoxetine 20 mg Capsule 40 mg PO DAILY 30 Days Qty: 60 0RF clonazepam 0.5 mg Tablet 0.5 mg PO QID PRN (Reason: anxiety/AH) 30 Days Qty: 60 0RF Rx Instructions: may take within 1 hour of each other; max dose 1mg daily prazosin 1 mg Capsule 4 mg PO BEDTIME 30 Days Qty: 120 0RF Protocol: Hold for SBP< HOLD for SBP < : 90 lithium carbonate 450 mg Tablet Extended Release 450 mg PO BEDTIME 30 Days Qty: 30 0RF mirtazapine 7.5 mg Tablet 7.5 mg PO BEDTIME MRX1 30 Days Qty: 60 0RF
[2021-11-11 09:34] VITALS: BP 122/88; BP 140/93; PULSE 109; PULSE 80; RESP 16; TEMP 37.1; O2SAT 98; BMI 40.9
[2021-11-11 10:26] LABS: COVID-19 Test Negative (Negative)
[2021-11-11 10:53] LABS: UPreg QC Valid YES; Urine Pregnancy NEGATIVE (NEGATIVE)
[2021-11-11 11:08] LABS: Amphetamine Screen Urine Not Detected (Not Detect); Barbiturates, Urine Not Detected (Not Detect); Benzodiazepines Screen Urine Not Detected (Not Detect); Cannabinoid Screen Urine Not Detected (Not Detect); Cocaine Screen Urine Not Detected (Not Detect); Fentanyl, urine POSITIVE (Not Detect); Opiate Screen Urine Not Detected (Not Detect); Phencyclidine Screen Urine Not Detected (Not Detect)
[2021-11-11] MEDS: Nicotine 21 MG PATCH.TD24 TRANSDERMA (11:53)
--- NOTE | 2021-11-11 13:38 | MHC.CARE ---
CARE Team met with Pt who currently denies SI/HI/VH/AH. Pt at baseline does have SI. Pt reported being overwhelmed this morning and having had difficultly coping with stressors. Pt is now requesting to be discharged. Pt is verbalizing ability to maintain safety. Pt and CARE Team came up with a plan for Pt to utilize a warm line instead of call EMS prior to [place] [facility]. Pt is in agreement with plan. CARE Team reviewed case with Dr. Ryan.
== END 2021-11-11 13:08 | disposition home or self-care (01) ==
PROVIDERS: Emergency Provider Emergency Medicine; PCP Nurse Practitioner Family
DX: F60.3 Borderline personality disorder (principal); F17.210 Nicotine dependence, cigarettes, uncomplicated; Z20.822 Contact with and (suspected) exposure to COVID-19; Z79.899 Other long term (current) drug therapy; Z71.6 Tobacco abuse counseling
CPT/HCPCS: 80307; 81025; 87635; 99284

== ENCOUNTER 2021-11-11 16:08 | Emergency (ER) | payer MEDICARE, MEDICAID, SELFPAY ==
[2021-11-11 16:19] VITALS: BP 150/86; PULSE 91; RESP 17; TEMP 37.1; O2SAT 97; BMI 34.9
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
[2021-11-11 18:03] LABS: Amphetamine Screen Urine Not Detected (Not Detect); Barbiturates, Urine Not Detected (Not Detect); Benzodiazepines Screen Urine Not Detected (Not Detect); Cannabinoid Screen Urine Not Detected (Not Detect); Cocaine Screen Urine Not Detected (Not Detect); Fentanyl, urine Not Detected (Not Detect); Opiate Screen Urine Not Detected (Not Detect); Phencyclidine Screen Urine Not Detected (Not Detect)
[2021-11-11 18:13] LABS: COVID-19 Test Negative (Negative); IDNOW Serial# 9DD0AD1C
--- NOTE | 2021-11-11 18:32 | PHA.MEDREC ---
Pharmacy Consult ? Medication Reconciliation Pharmacy has completed the medication reconciliation. No remarkable issues. Arianna Grande, MarjD
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
== END 2021-11-11 20:35 | disposition home or self-care (01) ==
PROVIDERS: Emergency Provider Emergency Medicine Emergency Medical Services
DX: S51.812A Laceration without foreign body of left forearm, initial encounter (principal); F33.1 Major depressive disorder, recurrent, moderate; R45.851 Suicidal ideations; R44.0 Auditory hallucinations; X78.9XXA Intentional self-harm by unspecified sharp object, initial encounter; Y93.9 Activity, unspecified; Y92.9 Unspecified place or not applicable; Y99.9 Unspecified external cause status; F17.210 Nicotine dependence, cigarettes, uncomplicated; Z79.899 Other long term (current) drug therapy; Z71.6 Tobacco abuse counseling; Z20.822 Contact with and (suspected) exposure to COVID-19
CPT/HCPCS: 80307; 87635; 99283; 99284

== ENCOUNTER 2021-11-14 08:03 | Emergency (ER) | payer MEDICARE, MEDICAID, SELFPAY ==
[2021-11-14 08:30] VITALS: BP 113/74; BP 138/82; PULSE 111; PULSE 98; RESP 18; TEMP 36.7; O2SAT 98; O2SAT 99; BMI 30.9
--- NOTE | 2021-11-14 09:01 | ED_ITS ---
HPI - Psych General Chief Complaint: Psychiatric Symptoms Stated Complaint: SI NO PLAN,FROM HALFWAY PER EMS Time Seen by Provider: 11/14/21 08:41 Source: patient and EMS Mode of arrival: EMS Limitations: no limitations History of Present Illness HPI Narrative: 45 yo female with a history of PTSD, borderline personality disorder, depression, bipolar 2 with melancholic features, DM, GERD?here with reports of feeling depressed, suicidal thoughts with plan to cut herself. Patient tells me she has been cutting herself over the last few days with pieces of broken plastic over her forearms, abdomen and legs. She tells me she hears a man's voice that tells her to kill herself. She has been taking all her medications as prescribed. Related Data Home Medications Medication Instructions Recorded Confirmed polyethylene glycol 3350 17 17 g PO DAILY PRN 02/12/21 11/14/21 gram oral powder packet (Miralax) atorvastatin 10 mg tablet 1 tab PO DAILY 05/29/21 11/14/21 ferrous sulfate 325 mg (65 1 tab PO DAILY 05/29/21 11/14/21 mg iron) tablet,delayed release fluticasone propionate 110 2 puff INHALATION BID 05/29/21 11/14/21 mcg/actuation HFA aerosol inhaler (Flovent HFA) metformin 500 mg tablet 1 tab PO BID 05/29/21 11/14/21 montelukast 10 mg tablet 1 tab PO BEDTIME 05/29/21 11/14/21 norethindrone 0.35 mg PO DAILY 05/29/21 11/14/21 (contraceptive) 0.35 mg tablet (Deblitane) pantoprazole 40 mg 1 tab PO BID@0630,1630 05/29/21 11/14/21 tablet,delayed release verapamil 240 mg 1 tab PO BEDTIME 05/29/21 11/14/21 tablet,extended release albuterol sulfate 90 2 puff INHALATION Q4H PRN 06/15/21 11/14/21 mcg/actuation aerosol inhaler (Ventolin HFA) ibuprofen 600 mg tablet 600 mg PO Q6H PRN 09/19/21 11/14/21 trazodone 150 mg tablet 150 mg PO BEDTIME PRN 11/05/21 11/14/21 clonazepam 0.5 mg tablet 0.5 mg PO QID PRN 11/11/21 11/14/21 lisinopril 5 mg tablet 1 tab PO DAILY 11/14/21 11/14/21 nicotine 21 mg/24 hr daily 1 patch TRANSDERMAL DAILY 11/14/21 11/14/21 PRN transdermal patch Previous Rx's Medication Instructions Recorded hydroxyzine HCl 50 mg tablet 50 mg PO QID PRN 30 Days #120 tab 07/27/21 chlorpromazine 25 mg tablet 75 mg PO Q4H PRN 30 Days #300 tab 09/29/21 fluoxetine 20 mg capsule 40 mg PO DAILY 30 Days #60 cap 09/29/21 lithium carbonate 450 mg 450 mg PO BEDTIME 30 Days #30 tab 10/18/21 tablet,extended release mirtazapine 7.5 mg tablet 7.5 mg PO BEDTIME MRX1 30 Days #60 10/18/21 tab prazosin 1 mg capsule 4 mg PO BEDTIME 30 Days #120 cap 10/18/21 Allergies Allergy/AdvReac Type Severity Reaction Status Date / Time Fish Containing Allergy Severe ANAPHYLAXIS Verified 11/14/21 08:35 Products codeine [Codeine] Allergy Unknown RASH Verified 11/14/21 08:35 Penicillins Allergy Unknown RASH Verified 11/14/21 08:35 prednisone Allergy Unknown RASH Verified 11/14/21 08:35 [Prednisone] Sulfa (Sulfonamide Allergy Unknown RASH Verified 11/14/21 08:35 Antibiotics) [Sulfa (Sulfonamides)] azithromycin AdvReac Severe RASH Verified 11/14/21 08:35 [AZITHROMYCIN] nicotine AdvReac Unknown HEART Verified 11/14/21 08:35 PALPITATION TO NICOTINE GUM Seafood Allergy Severe ANAPHYLAXIS Uncoded 11/05/21 21:13 From Geodon Allergy Unknown DYSURIA, Uncoded 11/05/21 21:13 RASH Review of Systems Verdana 4l Review of Systems: Yes all other systems are reviewed and Verdana 4d are negative Verdana 4l Constitutional: Verdana 4d Constitutional: Verdana 4d Verdana 4d Reports no additional constitutional complaints, Denies body ache(s), Denies chills, Denies fever(s), Denies headache(s) and Denies weakness Verdana 4l Eyes: Verdana 4d Verdana 4d Eyes: Verdana 4d Reports no additional eye complaints and Denies change in vision Verdana 4l ENT: Verdana 4d Reports system reviewed and no additional complaints, except as documented, Denies dizziness, Denies headache(s), Denies nasal congestion, Denies nasal discharge and Denies neck pain Verdana 4l Cardiovascular: Verdana 4d Cardiovascular: Verdana 4d Verdana 4d Reports no additional cardiovascular complaints, Denies chest pain, Denies leg edema and Denies dyspnea Verdana 4l Respiratory: Verdana 4d Verdana 4d Respiratory: Verdana 4d Reports no additional respiratory complaints, Denies cough and Denies dyspnea Verdana 4l Gastrointestinal: Verdana 4d Gastrointestinal: Verdana 4d Verdana 4d Reports no additional gastrointestinal complaints, Denies abdominal pain, Denies diarrhea, Denies nausea and Denies vomiting Verdana 4l Genitourinary: Verdana 4d Verdana 4d Genitourinary: Verdana 4d Reports no additional female genitourinary complaints and Denies urinary incontinence Verdana 4l Musculoskeletal: Verdana 4d Musculoskeletal: Verdana 4d Verdana 4d Reports no additional musculoskeletal complaints, Denies back pain, Denies arthralgias, Denies joint swelling, Denies neck pain, Denies numbness and Denies tingling Verdana 4l Integumentary/Breasts: Verdana 4d Skin/Breast: Verdana 4d Verdana 4d Reports system reviewed and no additional complaints, except as docu and Denies rash Verdana 4l Neurologic: Verdana 4d Reports system reviewed and no additional complaints, except as documented, Denies Abnormal speech present, Denies dizziness, Denies headache(s), Denies numbness, Denies tingling and Denies weakness Verdana 4l Psychiatric: Verdana 4d Verdana 4d Psychiatric: Verdana 4d Denies anxiety, Reports depression, Denies homicidal ideation and Reports suicidal ideation PMF Past Medical History Attestation statement: The following information was validated with the patient. Source: old records reviewed and nursing notes reviewed Medical History Bronchitis Diabetes type 2, controlled GERD (gastroesophageal reflux disease) Hyperlipidemia MDD (major depressive disorder), recurrent episode, severe Mood disorder Overdose PTSD (post-traumatic stress disorder) Social History Social History 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: None 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 Other:: Patient lives [facility]. 4 in total live in [facility]. Housing: Other Housing Other:: assisted Do you presently have visiting nurse or other home services: No (Medication administered by [facility] staff) Unable to assess alcohol history related to: Unknown Alcohol intake: never Patient Tobacco Use Status: Current everyday Tobacco user Tobacco use type: Cigarette Cigarette Packs Per Day: 1 Cigarettes Per Day: 20 Years Smoked: 20 e-Cigarette/Vaping Use: Never Used Second Hand Smoke Exposure: Yes Substance Use Type: Caffiene Advance Directives: No Advance Directives Information Provided: Yes service: No Sexual orientation: Don't Know Physical Exam Verdana 4l Vital Signs: Verdana 4d Verdana 4d Vital Signs: Verdana 4d Verdana 4Bd Last Vital Signs Verdana 4d Network Operations Project Manager New 4d Network Operations Project Manager New 4d Temp 98.1 F 11/14/21 08:30 Network Operations Project Manager New 4d Pulse 111 H 11/14/21 08:30 Network Operations Project Manager New 4d Resp 18 11/14/21 08:30 BP 113/74 11/14/21 08:30 Pulse Ox 99 11/14/21 08:30 BMI result Body Mass Index 30.9 Const: General: cooperative, healthy appearing, comfortable and no acute distress Orientation/consciousness: patient oriented x3 Limitations: no limitations HENMT: Head: Yes normal to inspection Ears: hearing grossly normal bilaterally General nose exam: Normal external nose present Face and sinus: Yes normal facial exam Mouth: Normal oral and palatal mucosa present Throat: Yes posterior oropharynx normal Eyes: General: appearance normal, both eyes and all related structures Pupils: Equal, round and reactive pupils present Neck: Neck: Yes normal visual inspection Chest: Chest palpation & inspection: normal inspection of the chest Resp: Effort & Inspection: normal respiratory effort Auscultation: clear to auscultation bilaterally Cardio: Rate: regular rate Rhythm: regular rhythm Peripheral pulses: Peripheral pulses 2+ throughout GI: Inspection: Yes normal to inspection Palpation (GI): Soft to palpation and nontender Auscultation: normal bowel sounds Back/Spine/Pelvis: Thoracic/Lumbar Spine: thoracic and lumbar spine normal to inspection Skin: Other: Multiple superficial abrasions noted over the forearm in various stages of healing General skin exam: no rashes or lesions noted Neuro: General: patient oriented x3, no focal motor deficits and normal sensation to m onofilament Cranial nerves: Yes CN's II-XII intact bilaterally and Yes Equal, round and reactive pupils present Cognition (Neuro): normal cognition Speech: No Abnormal speech present Gait exam (Neuro): Normal gait present Motor exam (neuro): 5/5 motor strength present throughout Extrem: General: Yes normal to inspection Course Course Course Narrative: 45-year-old female here with reports of suicidal thoughts, depression and self- injury over the last few days. Will check drug screen, COVID screen, involve either care team or [facility] 1200-patient seen by care team. Plan for discharge back to the [facility]. She has a safety plan in place. [facility] - Psych Medical Records Attestation: I reviewed the patient's medical records. Lab Data Attestation: I reviewed the patient's lab results. Labs: Lab Results 11/14/21 11/14/21 11/14/21 Range/Units 08:50 09:14 09:14 Urine Test NEGATIVE (NEGATIVE) Urine Opiates Screen Not Detected (Not Detect) Urine Fentanyl Screen Not Detected (Not Detect) Ur Barbiturates Screen Not Detected (Not Detect) Ur Phencyclidine Scrn Not Detected (Not Detect) Ur Amphetamines Screen Not Detected (Not Detect) U Benzodiazepines Scrn Not Detected (Not Detect) Urine Cocaine Screen Not Detected (Not Detect) U Marijuana (THC) Screen Not Detected (Not Detect) COVID-19 (NICK) Negative (Negative) COVID-19 Clin Com See Note Discharge Plan Discharge Clinical Impression: Borderline personality disorder, PTSD (post-traumatic stress disorder) Patient Disposition: Xfer Other Transfer Details: assisted Instructions: Post Traumatic Stress Disorder (ED), Borderline Personality Disorder (DC) Prescriptions: No Action polyethylene glycol 3350 [Miralax] 17 gram Powder In Packet 17 g PO DAILY PRN (Reason: Constipation) 0RF metformin 500 mg tablet 1 tab PO BID 0RF atorvastatin 10 mg tablet 1 tab PO DAILY 0RF pantoprazole 40 mg tablet,delayed release (DR/EC) 1 tab PO BID@0630,1630 0RF verapamil 240 mg tablet extended release 1 tab PO BEDTIME 0RF montelukast 10 mg tablet 1 tab PO BEDTIME 0RF ferrous sulfate 325 mg (65 mg iron) tablet,delayed release (DR/EC) 1 tab PO DAILY 0RF Flovent HFA 110 mcg/actuation HFA aerosol inhaler 2 puff inhalation BID 0RF norethindrone (contraceptive) [Deblitane] 0.35 mg Tablet 0.35 mg PO DAILY 0RF albuterol sulfate [Ventolin HFA] 90 mcg/actuation HFA aerosol inhaler 2 puff inhalation Q4H PRN (Reason: Shortness Of Breath) 0RF trazodone 150 mg tablet 150 mg PO BEDTIME PRN (Reason: insomnia) 0RF clonazepam 0.5 mg tablet 0.5 mg PO QID PRN (Reason: anxiety/AH) 0RF Rx Instructions: may take within 1 hour of each other; max dose 1mg daily hydroxyzine HCl 50 mg Tablet 50 mg PO QID PRN (Reason: Anxiety) 30 Days Qty: 120 0RF ibuprofen 600 mg Tablet 600 mg PO Q6H PRN (Reason: Mild Pain (Scale Score 1-4)) 0RF chlorpromazine 25 mg Tablet 75 mg PO Q4H PRN (Reason: agitation) 30 Days Qty: 300 0RF fluoxetine 20 mg Capsule 40 mg PO DAILY 30 Days Qty: 60 0RF prazosin 1 mg Capsule 4 mg PO BEDTIME 30 Days Qty: 120 0RF Protocol: Hold for SBP< HOLD for SBP < : 90 lithium carbonate 450 mg Tablet Extended Release 450 mg PO BEDTIME 30 Days Qty: 30 0RF mirtazapine 7.5 mg Tablet 7.5 mg PO BEDTIME MRX1 30 Days Qty: 60 0RF lisinopril 5 mg tablet 1 tab PO DAILY 0RF nicotine 21 mg/24 hr Patch 24 Hour 1 patch TRANSDERMAL DAILY PRN (Reason: Nicotine Cravings) 0RF Referrals: Maribel Marquez NP [Primary Care Provider] - 2 days Interventions: ED Discharge Assessment Last Done: 11/14/21 12:45 Discharge Date/Time: 11/14/21 12:46
--- NOTE | 2021-11-14 09:19 | PC.NURSE ---
Pt received from EMS: Pt AOX4 and stating she hears voices that are telling her to self-harm. Pt found to be using plastic fork for harm. Utensil taken away. Heart sounds normal and lungs clear. Pt abd soft and non-tender.
[2021-11-14 09:23] LABS: COVID-19 Test Negative (Negative); IDNOW Serial# 9DD0AD1C
[2021-11-14 09:26] LABS: UPreg QC Valid YES; Urine Pregnancy NEGATIVE (NEGATIVE)
[2021-11-14 09:37] LABS: Amphetamine Screen Urine Not Detected (Not Detect); Barbiturates, Urine Not Detected (Not Detect); Benzodiazepines Screen Urine Not Detected (Not Detect); Cannabinoid Screen Urine Not Detected (Not Detect); Cocaine Screen Urine Not Detected (Not Detect); Fentanyl, urine Not Detected (Not Detect); Opiate Screen Urine Not Detected (Not Detect); Phencyclidine Screen Urine Not Detected (Not Detect)
--- NOTE | 2021-11-14 11:26 | PC.NURSE ---
Pt now stating she wants to go home, and she thinks she just needs sleep. CARES aware and pending evaluation.
--- NOTE | 2021-11-14 11:49 | PHA.MEDREC ---
Pharmacy Consult ? Medication Reconciliation Pharmacy has completed the medication reconciliation. Med list from [facility] - patti adrian - is miss medication and some medications have no been filled in a while. [facility] fills all her medications, and they were able to fax an updated list. I left PRN medication hydroxyzine nd ibuprofen on home medication list as they were last fill in july so she may still have some PRN. Clonidine has not been filled since 08/15/2021 for 30 days, chlopromazine schedule tblet have not been filled since 08/15/2021 for 30 days. Benztropine has been > 2 months since being filled. Mady Anthony, PharmD
--- NOTE | 2021-11-14 12:12 | MHC.CARE ---
Patient stops CARE Team in the pod, stating that she would like to go home. CARE Team speaks with Adina from [facility], who states that pt can return, and identifies that pt has been presenting to EDs with increased frequency. CARE Team meets with pt to discuss a plan for her for the remainder of the day, with the goal of remaining in her intermediate and not returning to the ED. Pt states that she has no sharps in her room, as staff took them all away. She reports that she will color with Adina when she return, and if Adina is not available, she will spend time with her peer. Pt adds that she can listen to music and write as a distraction until dinner. After dinner she is going to the [place], which she is looking forward to. CARE Team communicates recommendation for d/c to Anahi Batista NP.
== END 2021-11-14 12:46 | disposition other institution (70) ==
PROVIDERS: Nurse Practitioner Family; Emergency Provider Emergency Medicine Emergency Medical Services; PCP Nurse Practitioner Family
DX: F60.3 Borderline personality disorder (principal); F43.10 Post-traumatic stress disorder, unspecified; R45.851 Suicidal ideations; F31.81 Bipolar II disorder; R44.0 Auditory hallucinations; Z20.822 Contact with and (suspected) exposure to COVID-19; E11.9 Type 2 diabetes mellitus without complications; E78.5 Hyperlipidemia, unspecified; F17.200 Nicotine dependence, unspecified, uncomplicated; Z91.52 Personal history of nonsuicidal self-harm; Z79.899 Other long term (current) drug therapy; Z79.02 Long term (current) use of antithrombotics/antiplatelets
CPT/HCPCS: 80307; 81025; 87635; 99283; 99284

== ENCOUNTER 2021-11-15 21:20 | Emergency (ER) | payer MEDICARE, MEDICAID, SELFPAY ==
[2021-11-15 21:27] VITALS: BP 160/111; PULSE 105; RESP 20; TEMP 37.3; O2SAT 97; BMI 39.1
[2021-11-15 21:57] LABS: COVID-19 Test Negative (Negative)
--- NOTE | 2021-11-15 22:08 | ED_ITS ---
HPI - Psych General Chief Complaint: Psychiatric Symptoms Stated Complaint: SI Time Seen by Provider: 11/15/21 21:42 Source: patient Mode of arrival: EMS Limitations: no limitations History of Present Illness HPI Narrative: Patient comes emergency room complaining of feeling angry, states that her other personalities are starting to show . Patient denies cutting today Related Data Home Medications Medication Instructions Recorded Confirmed polyethylene glycol 3350 17 17 g PO DAILY PRN 02/12/21 11/15/21 gram oral powder packet (Miralax) atorvastatin 10 mg tablet 1 tab PO DAILY 05/29/21 11/15/21 ferrous sulfate 325 mg (65 1 tab PO DAILY 05/29/21 11/15/21 mg iron) tablet,delayed release fluticasone propionate 110 2 puff INHALATION BID 05/29/21 11/15/21 mcg/actuation HFA aerosol inhaler (Flovent HFA) metformin 500 mg tablet 1 tab PO BID 05/29/21 11/15/21 montelukast 10 mg tablet 1 tab PO BEDTIME 05/29/21 11/15/21 norethindrone 0.35 mg PO DAILY 05/29/21 11/15/21 (contraceptive) 0.35 mg tablet (Deblitane) pantoprazole 40 mg 1 tab PO BID@0630,1630 05/29/21 11/15/21 tablet,delayed release verapamil 240 mg 1 tab PO BEDTIME 05/29/21 11/15/21 tablet,extended release albuterol sulfate 90 2 puff INHALATION Q4H PRN 06/15/21 11/15/21 mcg/actuation aerosol inhaler (Ventolin HFA) ibuprofen 600 mg tablet 600 mg PO Q6H PRN 09/19/21 11/15/21 trazodone 150 mg tablet 150 mg PO BEDTIME PRN 11/05/21 11/15/21 clonazepam 0.5 mg tablet 0.5 mg PO QID PRN 11/11/21 11/15/21 lisinopril 5 mg tablet 1 tab PO DAILY 11/14/21 11/15/21 nicotine 21 mg/24 hr daily 1 patch TRANSDERMAL DAILY 11/14/21 11/15/21 PRN transdermal patch Previous Rx's Medication Instructions Recorded hydroxyzine HCl 50 mg tablet 50 mg PO QID PRN 30 Days #120 tab 07/27/21 chlorpromazine 25 mg tablet 75 mg PO Q4H PRN 30 Days #300 tab 09/29/21 fluoxetine 20 mg capsule 40 mg PO DAILY 30 Days #60 cap 09/29/21 lithium carbonate 450 mg 450 mg PO BEDTIME 30 Days #30 tab 10/18/21 tablet,extended release mirtazapine 7.5 mg tablet 7.5 mg PO BEDTIME MRX1 30 Days #60 10/18/21 tab prazosin 1 mg capsule 4 mg PO BEDTIME 30 Days #120 cap 10/18/21 Allergies Allergy/AdvReac Type Severity Reaction Status Date / Time Fish Containing Allergy Severe ANAPHYLAXIS Verified 11/14/21 08:35 Products codeine [Codeine] Allergy Unknown RASH Verified 11/14/21 08:35 Penicillins Allergy Unknown RASH Verified 11/14/21 08:35 prednisone Allergy Unknown RASH Verified 11/14/21 08:35 [Prednisone] Sulfa (Sulfonamide Allergy Unknown RASH Verified 11/14/21 08:35 Antibiotics) [Sulfa (Sulfonamides)] azithromycin AdvReac Severe RASH Verified 11/14/21 08:35 [AZITHROMYCIN] nicotine AdvReac Unknown HEART Verified 11/14/21 08:35 PALPITATION TO NICOTINE GUM Seafood Allergy Severe ANAPHYLAXIS Uncoded 11/05/21 21:13 From Geodon Allergy Unknown DYSURIA, Uncoded 11/05/21 21:13 RASH Review of Systems Verdana 4l Review of Systems: Verdana 4d Verdana 4d Constitutional : No Weight loss, No Fever, No Chills, No Night Sweats, No Fatigue, No Malaise ENT/Mouth : No Hearing loss, No Ear Pain, No Nasal Congestion, No Sinus Pain, No Hoarseness, No sore throat, No Rhinorrhea, No Swallowing DifficultyDifficulty Eyes: No Eye Pain, No Swelling, No Redness, No Foreign Body, No Discharge, No Vision Changes Cardiovascular : No Chest Pain, No SOB, No Dyspnea on Exertion, No Orthopnea, No Edema, No Palpitations Respiratory : No Cough, No Sputum, No Wheezing, No Smoke Exposure, No Dyspnea Gastrointestinal : No Nausea, No Vomiting, No Diarrhea, No Constipation, No abdominal Pain, No Hematochezia, No Melena Genitourinary : no irregular bleeding, No Dysuria, No Urinary Frequency, No Hematuria, No Urinary Incontinence, No Urgency, No Flank Pain, No Urinary Flow Changes, No Hesitancy Musculoskeletal : No joint pain, No Myalgias, No Joint Swelling Skin : No Skin Lesions, No rash Neuro : No Weakness, No Numbness, No Paresthesias, No Loss of Consciousness, No Dizziness, No Headache Psych : Feeling anxious, denies SI or HI Heme/Lymph: No Bruising, No Bleeding,No Lymphadenopathy Endocrine : No Polyuria, No Polydipsia, No Temperature Intolerance [facility] Past Medical History Medical History Bronchitis Diabetes type 2, controlled GERD (gastroesophageal reflux disease) Hyperlipidemia MDD (major depressive disorder), recurrent episode, severe Mood disorder Overdose PTSD (post-traumatic stress disorder) Social History Social History 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: None 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 Other:: Patient lives in [facility]. 4 in total live in [facility]. Housing: Other Housing Other:: alf Do you presently have visiting nurse or other home services: No (Medication administered by [facility] staff) Unable to assess alcohol history related to: Unknown Alcohol intake: never Patient Tobacco Use Status: Current everyday Tobacco user Tobacco use type: Cigarette Cigarette Packs Per Day: 1 Cigarettes Per Day: 20 Years Smoked: 20 e-Cigarette/Vaping Use: Never Used Second Hand Smoke Exposure: Yes Substance Use Type: Caffiene Advance Directives: No Patient : No service: No Sexual orientation: Don't Know Physical Exam Verdana 4l Vital Signs: Verdana 4d Verdana 4d Vital Signs: Verdana 4d Verdana 4Bd Last Vital Signs Verdana 4d Online Merchandising Manager New 4d Online Merchandising Manager New 4d Temp 98.2 F 11/16/21 05:50 Online Merchandising Manager New 4d Pulse 90 11/16/21 05:50 Online Merchandising Manager New 4d Resp 17 11/16/21 05:50 BP 157/95 H 11/16/21 05:50 Pulse Ox 97 11/16/21 05:50 BMI result Body Mass Index 39.1 Const: Other: Appearance: Alert. Oriented X3, anxious Eyes: Pupils equal, round and reactive to light. ENT: Pharynx normal. Neck: Normal inspection. Neck supple. No lymph nodes noted. No crepitus CVS: Normal heart rate and rhythm. Pulses normal. Normal S1 and S2 Respiratory: No respiratory distress. Breath sounds normal. No Wheezing. No rales Abdomen: Soft nondistended Skin: Skin warm and dry. Healing scars in both forearms Extremities: No lower extremity edema. No Lacerations. No Rash Neuro: Oriented X 3. No motor deficit. No sensory deficit. Moving all extermities. No slurred speech. Cranial nerves 2-12 grossly intact Psych: Anxious Course Course Course Narrative: Patient was provided with her medications, care team will evaluate the patient. Vital stable. Care team consult pending. Physician observation started 00:30 [facility] - Psych Lab Data Labs: Lab Results 11/15/21 11/15/21 Range/Units 21:37 22:39 Urine Opiates Screen Not Detected (Not Detect) Urine Fentanyl Screen Not Detected (Not Detect) Ur Barbiturates Screen Not Detected (Not Detect) Ur Phencyclidine Scrn Not Detected (Not Detect) Ur Amphetamines Screen Not Detected (Not Detect) U Benzodiazepines Scrn Not Detected (Not Detect) Urine Cocaine Screen Not Detected (Not Detect) U Marijuana (THC) Screen Not Detected (Not Detect) COVID-19 (NICK) Negative (Negative) COVID-19 Clin Com See Note Discharge Plan Discharge Clinical Impression: Borderline personality disorder Patient Disposition: Still a Patient Prescriptions: No Action polyethylene glycol 3350 [Miralax] 17 gram Powder In Packet 17 g PO DAILY PRN (Reason: Constipation) 0RF metformin 500 mg tablet 1 tab PO BID 0RF atorvastatin 10 mg tablet 1 tab PO DAILY 0RF pantoprazole 40 mg tablet,delayed release (DR/EC) 1 tab PO BID@0630,1630 0RF verapamil 240 mg tablet extended release 1 tab PO BEDTIME 0RF montelukast 10 mg tablet 1 tab PO BEDTIME 0RF ferrous sulfate 325 mg (65 mg iron) tablet,delayed release (DR/EC) 1 tab PO DAILY 0RF Flovent HFA 110 mcg/actuation HFA aerosol inhaler 2 puff inhalation BID 0RF norethindrone (contraceptive) [Deblitane] 0.35 mg Tablet 0.35 mg PO DAILY 0RF albuterol sulfate [Ventolin HFA] 90 mcg/actuation HFA aerosol inhaler 2 puff inhalation Q4H PRN (Reason: Shortness Of Breath) 0RF trazodone 150 mg tablet 150 mg PO BEDTIME PRN (Reason: insomnia) 0RF clonazepam 0.5 mg tablet 0.5 mg PO QID PRN (Reason: anxiety/AH) 0RF Rx Instructions: may take within 1 hour of each other; max dose 1mg daily hydroxyzine HCl 50 mg Tablet 50 mg PO QID PRN (Reason: Anxiety) 30 Days Qty: 120 0RF ibuprofen 600 mg Tablet 600 mg PO Q6H PRN (Reason: Mild Pain (Scale Score 1-4)) 0RF chlorpromazine 25 mg Tablet 75 mg PO Q4H PRN (Reason: agitation) 30 Days Qty: 300 0RF fluoxetine 20 mg Capsule 40 mg PO DAILY 30 Days Qty: 60 0RF prazosin 1 mg Capsule 4 mg PO BEDTIME 30 Days Qty: 120 0RF Protocol: Hold for SBP< HOLD for SBP < : 90 lithium carbonate 450 mg Tablet Extended Release 450 mg PO BEDTIME 30 Days Qty: 30 0RF mirtazapine 7.5 mg Tablet 7.5 mg PO BEDTIME MRX1 30 Days Qty: 60 0RF lisinopril 5 mg tablet 1 tab PO DAILY 0RF nicotine 21 mg/24 hr Patch 24 Hour 1 patch TRANSDERMAL DAILY PRN (Reason: Nicotine Cravings) 0RF
[2021-11-15] MEDS: clonazePAM 0.5 MG TABLET PO (22:30)
[2021-11-15] MEDS: traZODone HCL 50 MG TABLET 150 MG PO (22:30)
[2021-11-15] MEDS: Prazosin HCL 1 MG CAPSULE 4 MG PO (22:31)
[2021-11-15] MEDS: VerapamiL HCL SR 240 MG TABLET.ER PO (22:31)
[2021-11-15] MEDS: chlorproMAZINE HCl 25 MG TABLET 75 MG PO (22:31)
[2021-11-15] MEDS: Lithium Carbonate ER 450 MG TABLET.ER PO (22:31)
[2021-11-15] MEDS: Mirtazapine 7.5 MG TABLET PO (22:31)
[2021-11-15] MEDS: Montelukast Sodium 10 MG TABLET PO (22:31)
[2021-11-15 23:00] LABS: Amphetamine Screen Urine Not Detected (Not Detect); Barbiturates, Urine Not Detected (Not Detect); Benzodiazepines Screen Urine Not Detected (Not Detect); Cannabinoid Screen Urine Not Detected (Not Detect); Cocaine Screen Urine Not Detected (Not Detect); Fentanyl, urine Not Detected (Not Detect); Opiate Screen Urine Not Detected (Not Detect); Phencyclidine Screen Urine Not Detected (Not Detect)
--- NOTE | 2021-11-16 00:05 | MHC.CARE ---
CARE team aware of pt in the pod and will follow up with her in the morning.
--- NOTE | 2021-11-16 05:33 | PC.NURSE ---
Patient slept through the night, no distress observed/reported, behavior appropriate and non-concerning at this time, medication compliant, awaiting care team assessment in the morning, VSS, will continue to monitor.
[2021-11-16 05:50] VITALS: BP 157/95; PULSE 90; RESP 17; TEMP 36.8; O2SAT 97
--- NOTE | 2021-11-16 06:59 | PC.NURSE ---
patient appears to remain asleep respirations are even and unlabored patient appears in no distress
[2021-11-16] MEDS: Omeprazole 20 MG CAPSULE.DR PO (10:24)
[2021-11-16] MEDS: FLUoxetine HCl 20 MG CAPSULE 40 MG PO (10:24)
[2021-11-16] MEDS: lisinopriL 5 MG TABLET PO (10:24)
--- NOTE | 2021-11-16 10:44 | MHC.CARE ---
Pt is a 45 y/o single, , Maori speaking, female, who is previously known to the CARE Team through prior assessments, ED visits and in patient stays.? Yesterday, she was transported to this facility via EMS after half-way staff called EMS as pt was yelling and swearing at staff.? This behavior is uncharacteristic of pt.? She reported that her ?Other personalities are starting to show.?? Pt has been medically cleared and is being assessed by the CARE Team to determine appropriate treatment recommendations. Pt has an extensive hx of inpt hospitalizations, and is known to engage in unsafe. Past documented hx of Major depressive d/o,?PTSD, and Borderline personality d/o. Pt has a hx of self-harm and suicide attempts. Pt is alert and oriented x4 and is assessed by CARE Team in her room in the behavioral health pod.? She is neat in appearance and appears older than her stated age.? Pt's eye contact and speech are within normal limits.? She reports good sleep last night and reports her appetite as good, though she did not like her breakfast.? She describes her mood as ?good? and ?Much better?.? Pt's affect is variable.? She reports hearing voices yesterday, which prompted her behavior but stated she is no longer hearing voices.? She stated that she was ?Angry? yesterday and behaving very differently than she normally does.? She could not answer why she behaved in such a way and did not recall many of the details other than she was not ?Nice?.? She denies SI, , HI and self-harm urges.? No thoughts of harm to others.? Insight, judgement, memory and concentration appear good. Pt's functioning today appears to be at her baseline.? She reports no auditory hallucinations, which are ever present to varying degrees at her baseline.? Today, she describes her voices ?In the back of my head? and ?Not really there?. CARE Team discussed her uncharacteristic behavior last night and her frequent visits to the ED of late.? Pt cannot attribute this to any specific cause.? CARE Team and pt agreed that it would be worth discussing these frequent ED visits with her therapist. The plan is for pt to be discharged back to the half-way.? CARE Team will secure a ride for pt.? This disposition was discussed with and agreed upon by ED Provider Caleb, and pt?s nurse WALKER Still. CARE Team contacted the half-way to advise them that pt will be discharged back to the half-way.? CARE Team with secure a Lyft for pt. F33.0 - Major depressive d/o, recurrent episode, mild, F43.10 - Post Traumatic Stress d/o, F60.3 - Borderline personality d/o
== END 2021-11-16 11:26 | disposition home or self-care (01) ==
PROVIDERS: Emergency Provider Emergency Medicine
DX: F60.3 Borderline personality disorder (principal); F41.9 Anxiety disorder, unspecified; Z20.822 Contact with and (suspected) exposure to COVID-19; F43.10 Post-traumatic stress disorder, unspecified; F17.200 Nicotine dependence, unspecified, uncomplicated; E11.9 Type 2 diabetes mellitus without complications; E78.5 Hyperlipidemia, unspecified; Z79.02 Long term (current) use of antithrombotics/antiplatelets; Z79.899 Other long term (current) drug therapy
CPT/HCPCS: 80307; 87635; 99283; 99284

== ENCOUNTER 2021-11-16 14:15 | Emergency (ER) | payer MEDICARE, MEDICAID, SELFPAY ==
--- NOTE | 2021-11-16 14:31 | ED_ITS ---
HPI - Psych General Chief Complaint: Psychiatric Symptoms Stated Complaint: SEC 12,THREATENING STAFF Time Seen by Provider: 11/16/21 14:23 Source: patient Mode of arrival: EMS Limitations: no limitations History of Present Illness HPI Narrative: 45-year-old female who is well-known to the emergency department, the patient has had 13 visits to the emergency department in October and this is her 2nd visit in November. The patient has a history of depression mood disorder PTSD. She lives in a detention she was just seen here overnight and discharged from the emergency department after being seen by [facility]. Apparently, the patient got back to her detention and became violent. The patient tells me that he does not know what happened she states she was told that she was throwing stuff at staff and said that she is going to take out a police shift commander. At the time of evaluation, the patient appears to be very anxious and tearful. She states that she believes her medications are not working and that she needs to be admitted to have her medications adjusted. Related Data Home Medications Medication Instructions Recorded Confirmed polyethylene glycol 3350 17 17 g PO DAILY PRN 02/12/21 11/16/21 gram oral powder packet (Miralax) atorvastatin 10 mg tablet 1 tab PO DAILY 05/29/21 11/16/21 ferrous sulfate 325 mg (65 1 tab PO DAILY 05/29/21 11/15/21 mg iron) tablet,delayed release fluticasone propionate 110 2 puff INHALATION BID 05/29/21 11/15/21 mcg/actuation HFA aerosol inhaler (Flovent HFA) metformin 500 mg tablet 1 tab PO BID 05/29/21 11/15/21 montelukast 10 mg tablet 1 tab PO BEDTIME 05/29/21 11/15/21 norethindrone 0.35 mg PO DAILY 05/29/21 11/15/21 (contraceptive) 0.35 mg tablet (Deblitane) pantoprazole 40 mg 1 tab PO BID@0630,1630 05/29/21 11/15/21 tablet,delayed release verapamil 240 mg 1 tab PO BEDTIME 05/29/21 11/15/21 tablet,extended release albuterol sulfate 90 2 puff INHALATION Q4H PRN 06/15/21 11/16/21 mcg/actuation aerosol inhaler (Ventolin HFA) ibuprofen 600 mg tablet 600 mg PO Q6H PRN 09/19/21 11/15/21 trazodone 150 mg tablet 150 mg PO BEDTIME PRN 11/05/21 11/15/21 clonazepam 0.5 mg tablet 0.5 mg PO QID PRN 11/11/21 11/16/21 lisinopril 5 mg tablet 1 tab PO DAILY 11/14/21 11/15/21 nicotine 21 mg/24 hr daily 1 patch TRANSDERMAL DAILY 11/14/21 11/15/21 PRN transdermal patch Previous Rx's Medication Instructions Recorded hydroxyzine HCl 50 mg tablet 50 mg PO QID PRN 30 Days #120 tab 07/27/21 chlorpromazine 25 mg tablet 75 mg PO Q4H PRN 30 Days #300 tab 09/29/21 fluoxetine 20 mg capsule 40 mg PO DAILY 30 Days #60 cap 09/29/21 lithium carbonate 450 mg 450 mg PO BEDTIME 30 Days #30 tab 10/18/21 tablet,extended release mirtazapine 7.5 mg tablet 7.5 mg PO BEDTIME MRX1 30 Days #60 10/18/21 tab prazosin 1 mg capsule 4 mg PO BEDTIME 30 Days #120 cap 10/18/21 Allergies Allergy/AdvReac Type Severity Reaction Status Date / Time Fish Containing Allergy Severe ANAPHYLAXIS Verified 11/14/21 08:35 Products codeine [Codeine] Allergy Unknown RASH Verified 11/14/21 08:35 Penicillins Allergy Unknown RASH Verified 11/14/21 08:35 prednisone Allergy Unknown RASH Verified 11/14/21 08:35 [Prednisone] Sulfa (Sulfonamide Allergy Unknown RASH Verified 11/14/21 08:35 Antibiotics) [Sulfa (Sulfonamides)] azithromycin AdvReac Severe RASH Verified 11/14/21 08:35 [AZITHROMYCIN] nicotine AdvReac Unknown HEART Verified 11/14/21 08:35 PALPITATION TO NICOTINE GUM Seafood Allergy Severe ANAPHYLAXIS Uncoded 11/05/21 21:13 From Geodon Allergy Unknown DYSURIA, Uncoded 11/05/21 21:13 RASH Review of Systems Verdana 4l Review of Systems: Yes all other systems are reviewed and Verdana 4d are negative PMFSH Past Medical History Medical History Bronchitis Diabetes type 2, controlled GERD (gastroesophageal reflux disease) Hyperlipidemia MDD (major depressive disorder), recurrent episode, severe Mood disorder Overdose PTSD (post-traumatic stress disorder) Social History Social History 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: None 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 Other:: Patient lives in detention. 4 in total live in detention. Housing: Other Housing Other:: senior living Do you presently have visiting nurse or other home services: No (Medication administered by detention staff) Unable to assess alcohol history related to: Unknown Alcohol intake: never Patient Tobacco Use Status: Current everyday Tobacco user Tobacco use type: Cigarette Cigarette Packs Per Day: 1 Cigarettes Per Day: 20 Years Smoked: 20 e-Cigarette/Vaping Use: Never Used Second Hand Smoke Exposure: Yes Substance Use Type: Caffiene Advance Directives: No Advance Directives Information Provided: No Patient : No service: No Sexual orientation: Don't Know Physical Exam 2 Verdana 4l Vital Signs: Verdana 4d Verdana 4d Vital Signs: Verdana 4d Verdana 4Bd Last Vital Signs Verdana 4d Forming Tube Selector New 4d Forming Tube Selector New 4d Temp 98.6 F 11/16/21 15:32 Forming Tube Selector New 4d Pulse 91 11/16/21 15:32 Forming Tube Selector New 4d Resp 18 11/16/21 14:32 BP 125/62 11/16/21 15:32 Pulse Ox 97 11/16/21 15:32 BMI result Body Mass Index 48.0 Const: Other: Awake, alert, female patient, she is tearful, she appears to be anxious, she did answer questions appropriately HENMT: Head: Yes normal to inspection, Yes normocephalic and Yes atraumatic Ears: external ears normal General nose exam: Normal external nose present Face and sinus: Yes normal facial exam Mouth: Normal oral and palatal mucosa present Throat: Yes posterior oropharynx normal Eyes: General: appearance normal, both eyes and all related structures Pupils: Equal, round and reactive pupils present Neck: Neck: Yes normal visual inspection, Yes no lymphadenopathy, Yes trachea midline and Yes supple Chest: Chest palpation & inspection: normal inspection of the chest and normal palpation of entire chest wall Resp: Effort & Inspection: normal respiratory effort and able to speak in complete sentences Auscultation: clear to auscultation bilaterally Cardio: Rate: regular rate Rhythm: regular rhythm Heart sounds: S1 normal heart sound present, S2 normal heart sound present and no murmurs GI: Inspection: Yes normal to inspection Palpation (GI): Soft to palpation, nontender and no guarding Auscultation: normal bowel sounds : General: Yes no CVA tenderness Back/Spine/Pelvis: Back: no CVA tenderness Skin: Other: Multiple old superficial lacerations to both arms, none of these appear to be new in none of them appear to be infected Neuro: Cranial nerves: Yes CN's II-XII intact bilaterally and Yes Equal, round and reactive pupils present Cognition (Neuro): normal cognition Motor exam (neuro): 5/5 motor strength present throughout Extrem: General: Yes normal to inspection Psych: Appearance: grossly normal Speech and movement: Normal speech and movement present Affect: Anxious affect present and Other affect and mood findings present (Tearful) Attitude: cooperative Thought content: Normal thought content present, Suicidality present and no homicidality Course Course Course Narrative: 45-year-old female who presents frequently to the emergency department (13 times in October and 2 times so far in November) for aggressive behavior at her detention. The patient apparently threw staff at staff and threatened staff at the detention. The patient told me that she does believe she is going to harm herself and she believes her medications are not working need to be adjusted. Physical examination revealed anxious appearing woman who was tearful otherwise her exam was unremarkable. I will obtain a Behavioral Health consult on this patient to determine further disposition. 1638: Physician observation started at 1638. Patient placed in physician observation because the patient needs more time to be seen by and be evaluated for the need for psych admission. At the time observation was started the patient's vitals were stable, patient is alert and oriented Neuro: nonfocal, CV RRR, Lungs clear. MDM - Psych Lab Data Labs: Lab Results 11/16/21 Range/Units 15:02 COVID-19 (NICK) Negative (Negative) COVID-19 Clin Com See Note Discharge Plan Discharge Clinical Impression: Agitation, Aggression Patient Disposition: Still a Patient Prescriptions: No Action polyethylene glycol 3350 [Miralax] 17 gram Powder In Packet 17 g PO DAILY PRN (Reason: Constipation) 0RF metformin 500 mg tablet 1 tab PO BID 0RF atorvastatin 10 mg tablet 1 tab PO DAILY 0RF pantoprazole 40 mg tablet,delayed release (DR/EC) 1 tab PO BID@0630,1630 0RF verapamil 240 mg tablet extended release 1 tab PO BEDTIME 0RF montelukast 10 mg tablet 1 tab PO BEDTIME 0RF ferrous sulfate 325 mg (65 mg iron) tablet,delayed release (DR/EC) 1 tab PO DAILY 0RF Flovent HFA 110 mcg/actuation HFA aerosol inhaler 2 puff inhalation BID 0RF norethindrone (contraceptive) [Deblitane] 0.35 mg Tablet 0.35 mg PO DAILY 0RF albuterol sulfate [Ventolin HFA] 90 mcg/actuation HFA aerosol inhaler 2 puff inhalation Q4H PRN (Reason: Shortness Of Breath) 0RF trazodone 150 mg tablet 150 mg PO BEDTIME PRN (Reason: insomnia) 0RF clonazepam 0.5 mg tablet 0.5 mg PO QID PRN (Reason: anxiety/AH) 0RF Rx Instructions: may take within 1 hour of each other; max dose 1mg daily hydroxyzine HCl 50 mg Tablet 50 mg PO QID PRN (Reason: Anxiety) 30 Days Qty: 120 0RF ibuprofen 600 mg Tablet 600 mg PO Q6H PRN (Reason: Mild Pain (Scale Score 1-4)) 0RF chlorpromazine 25 mg Tablet 75 mg PO Q4H PRN (Reason: agitation) 30 Days Qty: 300 0RF fluoxetine 20 mg Capsule 40 mg PO DAILY 30 Days Qty: 60 0RF prazosin 1 mg Capsule 4 mg PO BEDTIME 30 Days Qty: 120 0RF Protocol: Hold for SBP< HOLD for SBP < : 90 lithium carbonate 450 mg Tablet Extended Release 450 mg PO BEDTIME 30 Days Qty: 30 0RF mirtazapine 7.5 mg Tablet 7.5 mg PO BEDTIME MRX1 30 Days Qty: 60 0RF lisinopril 5 mg tablet 1 tab PO DAILY 0RF nicotine 21 mg/24 hr Patch 24 Hour 1 patch TRANSDERMAL DAILY PRN (Reason: Nicotine Cravings) 0RF
[2021-11-16 14:32] VITALS: BP 145/108; BP 162/90; PULSE 106; PULSE 85; RESP 18; TEMP 36; O2SAT 97; O2SAT 98; BMI 48.0
[2021-11-16] MEDS: chlorproMAZINE HCl 25 MG TABLET 75 MG PO (15:10)
[2021-11-16 15:23] LABS: COVID-19 Test Negative (Negative); IDNOW Serial# 55D5AD1C
[2021-11-16 15:32] VITALS: BP 125/62; PULSE 91; TEMP 37; O2SAT 97
[2021-11-16] MEDS: Nicotine 21 MG PATCH.TD24 TRANSDERMA (15:53)
[2021-11-16 17:01] LABS: Amphetamine Screen Urine Not Detected (Not Detect); Barbiturates, Urine Not Detected (Not Detect); Benzodiazepines Screen Urine Not Detected (Not Detect); Cannabinoid Screen Urine Not Detected (Not Detect); Cocaine Screen Urine Not Detected (Not Detect); Fentanyl, urine POSITIVE (Not Detect); Opiate Screen Urine Not Detected (Not Detect); Phencyclidine Screen Urine Not Detected (Not Detect)
[2021-11-16] MEDS: hydrOXYzine HCL 50 MG TABLET PO (17:20)
[2021-11-16] MEDS: clonazePAM 0.5 MG TABLET PO (17:20)
[2021-11-16 19:00] LABS: Lithium 0.24 mmol/L (0.60-1.20)
== END 2021-11-16 20:51 | disposition home or self-care (01) ==
PROVIDERS: Physician Assistant; Emergency Provider Emergency Medicine Emergency Medical Services; PCP Nurse Practitioner Family
DX: F33.1 Major depressive disorder, recurrent, moderate (principal); F60.89 Other specific personality disorders; F17.210 Nicotine dependence, cigarettes, uncomplicated; S40.812A Abrasion of left upper arm, initial encounter; S40.811A Abrasion of right upper arm, initial encounter; X58.XXXA Exposure to other specified factors, initial encounter; Y93.9 Activity, unspecified; Y92.9 Unspecified place or not applicable; Y99.9 Unspecified external cause status; Z71.6 Tobacco abuse counseling; Z20.822 Contact with and (suspected) exposure to COVID-19; Z79.899 Other long term (current) drug therapy
CPT/HCPCS: 36415; 80178; 80307; 87635; 99283; 99284

== ENCOUNTER 2021-11-25 21:57 | Emergency (ER) | payer MEDICARE, MEDICAID, SELFPAY ==
--- NOTE | 2021-11-25 22:00 | ED.PSYCH ---
HPI - Psych General Chief Complaint: Psychiatric Symptoms Stated Complaint: SI Source: patient and EMS Mode of arrival: EMS Limitations: no limitations History of Present Illness HPI Narrative: 45-year-old female well known to this facility presents via EMS for suicidal ideation. Care plan is in place for this patient. MD complaint: suicidal ideation Onset (ago): year(s) Duration: constant History of same: Yes Relieving factors: none Associated psychiatric symptoms: depression and suicidal ideation Associated symptoms: denies other symptoms If self harm: admits thoughts of self harm Related Data Home Medications Medication Instructions Recorded Confirmed polyethylene glycol 3350 17 gram 17 g PO DAILY PRN 02/12/21 11/16/21 oral powder packet (Miralax) atorvastatin 10 mg tablet 1 tab PO DAILY 05/29/21 11/16/21 ferrous sulfate 325 mg (65 mg 1 tab PO DAILY 05/29/21 11/16/21 iron) tablet,delayed release fluticasone propionate 110 2 puff INHALATION BID 05/29/21 11/16/21 mcg/actuation HFA aerosol inhaler (Flovent HFA) metformin 500 mg tablet 1 tab PO BID 05/29/21 11/16/21 montelukast 10 mg tablet 1 tab PO BEDTIME 05/29/21 11/16/21 norethindrone (contraceptive) 0.35 0.35 mg PO DAILY 05/29/21 11/15/21 mg tablet (Deblitane) pantoprazole 40 mg tablet,delayed 1 tab PO BID@0630,1630 05/29/21 11/16/21 release verapamil 240 mg tablet,extended 1 tab PO BEDTIME 05/29/21 11/16/21 release albuterol sulfate 90 mcg/actuation 2 puff INHALATION Q4H PRN 06/15/21 11/16/21 aerosol inhaler (Ventolin HFA) ibuprofen 600 mg tablet 600 mg PO Q6H PRN 09/19/21 11/16/21 trazodone 150 mg tablet 150 mg PO BEDTIME PRN 11/05/21 11/16/21 clonazepam 0.5 mg tablet 0.5 mg PO QID PRN 11/11/21 11/16/21 lisinopril 5 mg tablet 1 tab PO DAILY 11/14/21 11/16/21 nicotine 21 mg/24 hr daily 1 patch TRANSDERMAL DAILY PRN 11/14/21 11/16/21 transdermal patch Previous Rx's Medication Instructions Recorded hydroxyzine HCl 50 mg tablet 50 mg PO QID PRN 30 Days #120 tab 07/27/21 chlorpromazine 25 mg tablet 75 mg PO Q4H PRN 30 Days #300 tab 09/29/21 fluoxetine 20 mg capsule 40 mg PO DAILY 30 Days #60 cap 09/29/21 lithium carbonate 450 mg 450 mg PO BEDTIME 30 Days #30 tab 10/18/21 tablet,extended release mirtazapine 7.5 mg tablet 7.5 mg PO BEDTIME MRX1 30 Days #60 10/18/21 tab prazosin 1 mg capsule 4 mg PO BEDTIME 30 Days #120 cap 10/18/21 Allergies Allergy/AdvReac Type Severity Reaction Status Date / Time Fish Containing Products Allergy Severe ANAPHYLAXIS Verified 11/14/21 08:35 codeine [Codeine] Allergy Unknown RASH Verified 11/14/21 08:35 Penicillins Allergy Unknown RASH Verified 11/14/21 08:35 prednisone [Prednisone] Allergy Unknown RASH Verified 11/14/21 08:35 Sulfa (Sulfonamide Allergy Unknown RASH Verified 11/14/21 08:35 Antibiotics) [Sulfa (Sulfonamides)] azithromycin [AZITHROMYCIN] AdvReac Severe RASH Verified 11/14/21 08:35 nicotine AdvReac Unknown HEART Verified 11/14/21 08:35 PALPITATION TO NICOTINE GUM Seafood Allergy Severe ANAPHYLAXIS Uncoded 11/05/21 21:13 From Geodon Allergy Unknown DYSURIA, Uncoded 11/05/21 21:13 RASH Review of Systems Review of Systems: Constitutional: No Fever, No Chills ENT/Mouth: No Ear Pain, No Nasal Congestion, No sore throat Eyes: No Eye Pain, No Swelling, No Redness Cardiovascular: No Chest Pain, No SOB Respiratory: No Cough, No Sputum, No Dyspnea Gastrointestinal: No Nausea, No Vomiting, No Diarrhea, No Hematochezia, No Melena Genitourinary: No Dysuria, No Urinary Frequency, No Hematuria Musculoskeletal: No Myalgias Skin: No Skin Lesions, No rash Neuro: No Weakness, No Numbness, No Paresthesias, No Dizziness, No Headache Psych: positive Anxiety, positive Depression, positive SI Heme/Lymph: No Lymphadenopathy Endocrine: No Polyuria, No Polydipsia Yes all other systems are reviewed and are negative [facility] Past Medical History Attestation statement: The following information was validated with the patient. Source: old records reviewed Medical History Bronchitis Diabetes type 2, controlled GERD (gastroesophageal reflux disease) Hyperlipidemia MDD (major depressive disorder), recurrent episode, severe Mood disorder Overdose PTSD (post-traumatic stress disorder) Social History Social History 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: None 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 Other:: Patient lives in residential. 4 in total live in residential. Housing: Other Housing Other:: correction Do you presently have visiting nurse or other home services: No (Medication administered by residential staff) Unable to assess alcohol history related to: Unknown Alcohol intake: never Patient Tobacco Use Status: Current everyday Tobacco user Tobacco use type: Cigarette Cigarette Packs Per Day: 1 Cigarettes Per Day: 20 Years Smoked: 20 e-Cigarette/Vaping Use: Never Used Second Hand Smoke Exposure: Yes Substance Use Type: Caffiene Advance Directives: No Advance Directives Information Provided: No Patient : No service: No Sexual orientation: Don't Know Physical Exam Vital Signs: Vital Signs: Last Vital Signs Temp 97.9 F 11/25/21 22:07 Pulse 105 H 11/25/21 22:37 Resp 15 11/25/21 22:07 BP 119/75 11/25/21 22:37 Pulse Ox 96 11/25/21 22:07 BMI result Body Mass Index 36.3 Appearance: Alert. Oriented X3. No acute distress. Eyes: Pupils equal, round and reactive to light. ENT: Pharynx normal. Neck: Normal inspection. Neck supple. CVS: Normal heart rate and rhythm. Pulses normal. Respiratory: No respiratory distress. Breath sounds normal. Abdomen: Soft and nontender. Skin: Skin warm and dry. Normal skin color. Normal skin turgor. Extremities: No lower extremity edema. Gait well-balanced well coordinated. Neuro: No motor deficit. No sensory deficit. Cranial nerves 2-12 intact. Course Course Course Narrative: 45-year-old female well known to this facility presents for suicidal ideation via EMS. Plan of care is for consult in the morning. Physician observation started at this time. Patient denies any physical complaints at this time. 23:09 care team consult complete. Plan of care is to discharge home. MDM - Psych Differential Diagnosis Differential diagnosis: Likely acute psychosis, suicidal ideation, depression and mood disorder Medical Records Attestation: I reviewed the patient's medical records. Lab Data Attestation: I reviewed the patient's lab results. Labs: Lab Results 11/25/21 11/25/21 11/25/21 Range/Units 22:19 22:19 22:19 Urine Color YELLOW Urine Appearance CLEAR Urine pH 6.0 (5.0-8.0) Ur Specific [place] <= 1.005 (1.005-1.025) Urine Protein NEG (NEG-TRACE) MG/DL Urine Glucose (UA) NEG (NEG) MG/DL Urine Ketones NEG (NEG) MG/DL Urine Blood NEG (NEG) Urine Nitrite NEG (NEG) Ur Leukocyte Esterase NEG (NEG) Urine Opiates Screen Not Detected (Not Detect) Urine Fentanyl Screen Not Detected (Not Detect) Ur Barbiturates Screen Not Detected (Not Detect) Ur Phencyclidine Scrn Not Detected (Not Detect) Ur Amphetamines Screen Not Detected (Not Detect) U Benzodiazepines Scrn Not Detected (Not Detect) Urine Cocaine Screen Not Detected (Not Detect) U Marijuana (THC) Screen Not Detected (Not Detect) COVID-19 (NICK) Negative (Negative) COVID-19 Clin Com See Note Discharge Plan Discharge Clinical Impression: Borderline personality disorder, Depression Patient Disposition: Home, Self-Care Instructions: Depression (ED) Additional Instructions: Please follow-up with outpatient psychiatry as scheduled. Thank you for choosing this emergency department for evaluation. Please follow-up with primary care physician as needed. Return to the emergency department for any new, concerning, or worsening symptoms. Prescriptions: No Action polyethylene glycol 3350 [Miralax] 17 gram Powder In Packet 17 g PO DAILY PRN (Reason: Constipation) 0RF metformin 500 mg tablet 1 tab PO BID 0RF atorvastatin 10 mg tablet 1 tab PO DAILY 0RF pantoprazole 40 mg tablet,delayed release (DR/EC) 1 tab PO BID@0630,1630 0RF verapamil 240 mg tablet extended release 1 tab PO BEDTIME 0RF montelukast 10 mg tablet 1 tab PO BEDTIME 0RF ferrous sulfate 325 mg (65 mg iron) tablet,delayed release (DR/EC) 1 tab PO DAILY 0RF Flovent HFA 110 mcg/actuation HFA aerosol inhaler 2 puff inhalation BID 0RF norethindrone (contraceptive) [Deblitane] 0.35 mg Tablet 0.35 mg PO DAILY 0RF albuterol sulfate [Ventolin HFA] 90 mcg/actuation HFA aerosol inhaler 2 puff inhalation Q4H PRN (Reason: Shortness Of Breath) 0RF trazodone 150 mg tablet 150 mg PO BEDTIME PRN (Reason: insomnia) 0RF clonazepam 0.5 mg tablet 0.5 mg PO QID PRN (Reason: anxiety/AH) 0RF Rx Instructions: may take within 1 hour of each other; max dose 1mg daily hydroxyzine HCl 50 mg Tablet 50 mg PO QID PRN (Reason: Anxiety) 30 Days Qty: 120 0RF ibuprofen 600 mg Tablet 600 mg PO Q6H PRN (Reason: Mild Pain (Scale Score 1-4)) 0RF chlorpromazine 25 mg Tablet 75 mg PO Q4H PRN (Reason: agitation) 30 Days Qty: 300 0RF fluoxetine 20 mg Capsule 40 mg PO DAILY 30 Days Qty: 60 0RF prazosin 1 mg Capsule 4 mg PO BEDTIME 30 Days Qty: 120 0RF Protocol: Hold for SBP< HOLD for SBP < : 90 lithium carbonate 450 mg Tablet Extended Release 450 mg PO BEDTIME 30 Days Qty: 30 0RF mirtazapine 7.5 mg Tablet 7.5 mg PO BEDTIME MRX1 30 Days Qty: 60 0RF lisinopril 5 mg tablet 1 tab PO DAILY 0RF nicotine 21 mg/24 hr Patch 24 Hour 1 patch TRANSDERMAL DAILY PRN (Reason: Nicotine Cravings) 0RF
[2021-11-25 22:07] VITALS: BP 174/124; PULSE 99; RESP 15; TEMP 36.6; O2SAT 96; BMI 36.3
[2021-11-25 22:33] LABS: Appearance Urine CLEAR; Color Urine YELLOW; Glucose Urine UA NEG (NEG); Leukocyte Esterase Urine NEG (NEG); Nitrite Urine NEG (NEG); Specific Gravity - Urine <= 1.005 (1.005-1.025); Urine Blood NEG (NEG); Urine Ketones NEG (NEG); Urine Protein NEG (NEG-TRACE)
[2021-11-25 22:37] VITALS: BP 119/75; PULSE 105
[2021-11-25 22:41] LABS: Amphetamine Screen Urine Not Detected (Not Detect); Barbiturates, Urine Not Detected (Not Detect); Benzodiazepines Screen Urine Not Detected (Not Detect); COVID-19 Test Negative (Negative); Cannabinoid Screen Urine Not Detected (Not Detect); Cocaine Screen Urine Not Detected (Not Detect); Fentanyl, urine Not Detected (Not Detect); Opiate Screen Urine Not Detected (Not Detect); Phencyclidine Screen Urine Not Detected (Not Detect)
--- NOTE | 2021-11-25 23:10 | MHC.CARE ---
CARE Team checked in with pt after she had settled into the behavioral health pod. Pt reported that she panicked and that she was really scared. She reports that she doesn't feel scared any more and would like to go home. CARE Team complimented pt on her ability to self-regulate so quickly and asked her to identify the coping skill that had been helpful for her. Pt reported that she had purchased a bubble popper fidget toy that she had used when she was feeling scared. CARE Team will get a Lyft for pt.
== END 2021-11-25 23:38 | disposition home or self-care (01) ==
PROVIDERS: Nurse Practitioner Family; Emergency Provider Internal Medicine
DX: F60.3 Borderline personality disorder (principal); F32.A Depression, unspecified; R45.851 Suicidal ideations; Z20.822 Contact with and (suspected) exposure to COVID-19; F41.9 Anxiety disorder, unspecified; F43.10 Post-traumatic stress disorder, unspecified; E11.9 Type 2 diabetes mellitus without complications; E78.5 Hyperlipidemia, unspecified; F17.200 Nicotine dependence, unspecified, uncomplicated; Z79.02 Long term (current) use of antithrombotics/antiplatelets; Z79.899 Other long term (current) drug therapy
CPT/HCPCS: 80307; 81003; 87635; 99283; 99284

== ENCOUNTER 2021-11-28 17:54 | Emergency (ER) | payer MEDICARE, MEDICAID, SELFPAY ==
[2021-11-28 18:04] VITALS: BP 138/86; PULSE 110; O2SAT 97
--- NOTE | 2021-11-28 18:19 | ED_ITS ---
HPI - General Adult General Chief complaint: General Medical Stated complaint: WHOLE BODY TREMBLING PER EMS Source: patient and EMS Mode of arrival: EMS Limitations: no limitations History of Present Illness HPI narrative: 45-year-old female presents via EMS for tremors. Patient has concerns that they have raised her lithium and feels that her lithium levels may be toxic. Onset (ago): day(s) Severity: mild Associated symptoms: denies other symptoms Treatments prior to arrival: none Related Data Home Medications Medication Instructions Recorded Confirmed polyethylene glycol 3350 17 gram 17 g PO DAILY PRN 02/12/21 11/16/21 oral powder packet (Miralax) atorvastatin 10 mg tablet 1 tab PO DAILY 05/29/21 11/16/21 ferrous sulfate 325 mg (65 mg 1 tab PO DAILY 05/29/21 11/16/21 iron) tablet,delayed release fluticasone propionate 110 2 puff INHALATION BID 05/29/21 11/16/21 mcg/actuation HFA aerosol inhaler (Flovent HFA) metformin 500 mg tablet 1 tab PO BID 05/29/21 11/16/21 montelukast 10 mg tablet 1 tab PO BEDTIME 05/29/21 11/16/21 norethindrone (contraceptive) 0.35 0.35 mg PO DAILY 05/29/21 11/15/21 mg tablet (Deblitane) pantoprazole 40 mg tablet,delayed 1 tab PO BID@0630,1630 05/29/21 11/16/21 release verapamil 240 mg tablet,extended 1 tab PO BEDTIME 05/29/21 11/16/21 release albuterol sulfate 90 mcg/actuation 2 puff INHALATION Q4H PRN 06/15/21 11/16/21 aerosol inhaler (Ventolin HFA) ibuprofen 600 mg tablet 600 mg PO Q6H PRN 09/19/21 11/16/21 trazodone 150 mg tablet 150 mg PO BEDTIME PRN 11/05/21 11/16/21 clonazepam 0.5 mg tablet 0.5 mg PO QID PRN 11/11/21 11/16/21 lisinopril 5 mg tablet 1 tab PO DAILY 11/14/21 11/16/21 nicotine 21 mg/24 hr daily 1 patch TRANSDERMAL DAILY PRN 11/14/21 11/16/21 transdermal patch Previous Rx's Medication Instructions Recorded hydroxyzine HCl 50 mg tablet 50 mg PO QID PRN 30 Days #120 tab 07/27/21 chlorpromazine 25 mg tablet 75 mg PO Q4H PRN 30 Days #300 tab 09/29/21 fluoxetine 20 mg capsule 40 mg PO DAILY 30 Days #60 cap 09/29/21 lithium carbonate 450 mg 450 mg PO BEDTIME 30 Days #30 tab 10/18/21 tablet,extended release mirtazapine 7.5 mg tablet 7.5 mg PO BEDTIME MRX1 30 Days #60 10/18/21 tab prazosin 1 mg capsule 4 mg PO BEDTIME 30 Days #120 cap 10/18/21 Allergies Allergy/AdvReac Type Severity Reaction Status Date / Time Fish Containing Products Allergy Severe ANAPHYLAXIS Verified 11/14/21 08:35 codeine [Codeine] Allergy Unknown RASH Verified 11/14/21 08:35 Penicillins Allergy Unknown RASH Verified 11/14/21 08:35 prednisone [Prednisone] Allergy Unknown RASH Verified 11/14/21 08:35 Sulfa (Sulfonamide Allergy Unknown RASH Verified 11/14/21 08:35 Antibiotics) [Sulfa (Sulfonamides)] azithromycin [AZITHROMYCIN] AdvReac Severe RASH Verified 11/14/21 08:35 nicotine AdvReac Unknown HEART Verified 11/14/21 08:35 PALPITATION TO NICOTINE GUM Seafood Allergy Severe ANAPHYLAXIS Uncoded 11/05/21 21:13 From Geodon Allergy Unknown DYSURIA, Uncoded 11/05/21 21:13 RASH Review of Systems Review of Systems: Constitutional: No Fever, No Chills ENT/Mouth: No Ear Pain, No Hoarseness, No sore throat Eyes: No Eye Pain, No Swelling, No Redness, No Foreign Body Cardiovascular: No Chest Pain, No SOB Respiratory: No Cough, No Dyspnea Gastrointestinal: No Nausea, No Vomiting, No Diarrhea, No abdominal Pain Genitourinary: No Dysuria, No Hematuria Musculoskeletal: positive muscle tremors, No Myalgias, No Joint Swelling Skin: No Skin lacerations, No rash Neuro: No Weakness, No Numbness, No Paresthesias, No Loss of Consciousness, No Dizziness, No Headache Psych: No Anxiety/Panic, No Depression Heme/Lymph: no easy bruising, no Lymphadenopathy Endocrine: No Polyuria, No Polydipsia Yes all other systems are reviewed and are negative [facility] Past Medical History Attestation statement: The following information was validated with the patient. Source: old records reviewed Medical History Bronchitis Diabetes type 2, controlled GERD (gastroesophageal reflux disease) Hyperlipidemia MDD (major depressive disorder), recurrent episode, severe Mood disorder Overdose PTSD (post-traumatic stress disorder) Social History Social History 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: None 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 Other:: Patient lives in skilled nursing. 4 in total live in skilled nursing. Housing: Other Housing Other:: snf Do you presently have visiting nurse or other home services: No (Medication administered by skilled nursing staff) Unable to assess alcohol history related to: Unknown Alcohol intake: never Patient Tobacco Use Status: Current everyday Tobacco user Tobacco use type: Cigarette Cigarette Packs Per Day: 1 Cigarettes Per Day: 20 Years Smoked: 20 e-Cigarette/Vaping Use: Never Used Second Hand Smoke Exposure: Yes Substance Use Type: Caffiene Advance Directives: No Advance Directives Information Provided: No Patient : No service: No Sexual orientation: Don't Know Physical Exam ED Vital Signs: Vital Signs - 24 hr 11/28/21 18:36 Temperature 99 F Pulse Rate 88 Respiratory Rate 16 Blood Pressure 124/75 Pulse Oximetry 97 BMI result Body Mass Index 39.1 Appearance: Alert. Oriented X3. No acute distress. Eyes: Pupils equal, round and reactive to light. ENT: Pharynx normal. Neck: Normal inspection. Neck supple. CVS: Normal heart rate and rhythm. Pulses normal. Respiratory: No respiratory distress. Breath sounds normal. Abdomen: Soft and nontender. Skin: Skin warm and dry. Normal skin color. Normal skin turgor. Extremities: No lower extremity edema. Hand tremors noted. Moves all extremities against resistance. Neuro: No motor deficit. No sensory deficit. Gait well oriented. Cranial nerves 2 intact. Course Course Course Narrative: 45-year-old female presents for suspicion of lithium toxicity due to tremors to both hands. Did state that she was tremors here today. She did have an elevation to her lithium levels and is concerned about lithium toxicity. This patient is well-known to this facility and presents on a regular basis for suicidal ideation. Patient is not suicidal or homicidal at this time. No other complaints. Will order CBC, Chem 7, and lithium. 19:56 labs still pending draw. 21:12 labs are negative for acute findings requiring emergent intervention, lithium is within normal limits. Plan of care to discharge home. Patient makayla zavala understanding of and agrees to plan of care discharge home. Will follow up with Psychiatry for suspicion of EPS. Patient does have a psychiatry appointment this week. Medical Decision Making Differential Diagnosis Differential Diagnosis: [place] toxicity, electrolyte abnormality, EPS Medical Records Medical records reviewed: Yes I reviewed the patient's medical records. Lab Data Lab results reviewed: Yes I reviewed the patient's lab results. Result diagrams: 11/28/21 20:26 11/28/21 20: Labs: Lab Results 11/28/21 11/28/21 11/28/21 Range/Units 20:26 20:26 20:26 WBC 8.6 (4.8-10.8) X10*3/uL RBC 3.82 L (4.20-5.50) X10*6/uL Hgb 11.4 L (12.0-16.0) g/dl Hct 35.1 L (37.0-47.0) % MCV 91.9 (80.0-98.0) fL MCH 29.8 (27.0-33.0) pg MCHC 32.5 (31.0-35.0) g/dl RDW 12.5 (11.0-16.0) % Plt Count 249 (160-400) X10*3/uL MPV 9.6 (9.4-12.3) fL Immature Gran % (Auto) 0.7 H (0.0-0.4) % Neut % (Auto) 67.0 (45-73) % Lymph % (Auto) 18.6 L (20-40) % [place] % (Auto) 8.2 (2-11) % Eos % (Auto) 5.0 H (0-4) % Baso % (Auto) 0.5 (0-2) % Lymph # (Auto) 1.6 (1.2-4.9) X10*3/uL [place] # (Auto) 0.7 (0.1-1.2) X10*3/uL Eos # (Auto) 0.4 (0.0-0.4) X10*3/uL Baso # (Auto) 0.0 (0.0-0.2) X10*3/uL Abs Immat Gran (auto) 0.06 H (0.00-0.03) X10*3/uL Absolute Neuts (auto) 5.8 (2.0-8.3) x10*3/uL Absolute Nucleated RBC 0.000 (0.0-0.012) X10*3/uL Nucleated RBC % (auto) 0.0 (0.0-0.2) /100WBC Sodium 141 (135-145) mmol/L Potassium 4.0 (3.3-5.1) mmol/L Chloride 109 H (96-108) mmol/L Carbon Dioxide 28 (22-29) mmol/L Anion Gap 8 L (12-20) BUN 10 (9-16) mg/dL Creatinine 0.77 (0.5-1.4) mg/dL Estim Creat Clear Calc 110.3 Estimated GFR > 60 Random Glucose 88 (60-115) mg/dL Calcium 8.5 D (8.4-10.2) mg/dL Total Bilirubin 0.2 (0.0-1.0) mg/dL Direct Bilirubin < 0.2 (0.0-0.5) mg/dL AST 13 D (5-31) U/L ALT 11 (0-31) U/L Alkaline Phosphatase 93 (39-117) U/L Total Protein 6.0 L (6.5-8.0) g/dL Albumin 3.8 (3.5-5.0) g/dL Lipase 24 (8-78) U/L [place] 0.71 (0.60-1.20) mmol/L Discharge Plan Discharge Clinical Impression: Occasional tremors Patient Disposition: Home, Self-Care Instructions: Tremors (ED) Additional Instructions: You were evaluated for tremors. Your lithium level is normal, 0.71. Please follow-up with outpatient psychiatry for evaluation for possible medication adverse reactions. Thank you for choosing this emergency department for evaluation. Please follow-up with primary care physician as needed. Return to the emergency department for any new, concerning, or worsening symptoms. Prescriptions: No Action polyethylene glycol 3350 [Miralax] 17 gram Powder In Packet 17 g PO DAILY PRN (Reason: Constipation) 0RF metformin 500 mg tablet 1 tab PO BID 0RF atorvastatin 10 mg tablet 1 tab PO DAILY 0RF pantoprazole 40 mg tablet,delayed release (DR/EC) 1 tab PO BID@0630,1630 0RF verapamil 240 mg tablet extended release 1 tab PO BEDTIME 0RF montelukast 10 mg tablet 1 tab PO BEDTIME 0RF ferrous sulfate 325 mg (65 mg iron) tablet,delayed release (DR/EC) 1 tab PO DAILY 0RF Flovent HFA 110 mcg/actuation HFA aerosol inhaler 2 puff inhalation BID 0RF norethindrone (contraceptive) [Deblitane] 0.35 mg Tablet 0.35 mg PO DAILY 0RF albuterol sulfate [Ventolin HFA] 90 mcg/actuation HFA aerosol inhaler 2 puff inhalation Q4H PRN (Reason: Shortness Of Breath) 0RF trazodone 150 mg tablet 150 mg PO BEDTIME PRN (Reason: insomnia) 0RF clonazepam 0.5 mg tablet 0.5 mg PO QID PRN (Reason: anxiety/AH) 0RF Rx Instructions: may take within 1 hour of each other; max dose 1mg daily hydroxyzine HCl 50 mg Tablet 50 mg PO QID PRN (Reason: Anxiety) 30 Days Qty: 120 0RF ibuprofen 600 mg Tablet 600 mg PO Q6H PRN (Reason: Mild Pain (Scale Score 1-4)) 0RF chlorpromazine 25 mg Tablet 75 mg PO Q4H PRN (Reason: agitation) 30 Days Qty: 300 0RF fluoxetine 20 mg Capsule 40 mg PO DAILY 30 Days Qty: 60 0RF prazosin 1 mg Capsule 4 mg PO BEDTIME 30 Days Qty: 120 0RF Protocol: Hold for SBP< HOLD for SBP < : 90 lithium carbonate 450 mg Tablet Extended Release 450 mg PO BEDTIME 30 Days Qty: 30 0RF mirtazapine 7.5 mg Tablet 7.5 mg PO BEDTIME MRX1 30 Days Qty: 60 0RF lisinopril 5 mg tablet 1 tab PO DAILY 0RF nicotine 21 mg/24 hr Patch 24 Hour 1 patch TRANSDERMAL DAILY PRN (Reason: Nicotine Cravings) 0RF Interventions: ED Discharge Assessment Last Done: 11/28/21 21:27 Discharge Date/Time: 11/28/21 21:28
[2021-11-28 18:36] VITALS: BP 124/75; PULSE 88; RESP 16; TEMP 37.2; O2SAT 97; BMI 39.1
[2021-11-28 20:30] LABS: MANUAL DIFF FLAG NO
[2021-11-28 20:32] LABS: Basophils Percent Auto 0.5 % (0-2); Eosinophils Absolute Auto 0.4 X10*3/uL (0.0-0.4); Hematocrit 35.1 % (37.0-47.0); Hemoglobin 11.4 g/dl (12.0-16.0); Imm Gran Abs Auto 0.06 X10*3/uL (0.00-0.03); Imm Gran Pct Auto 0.7 % (0.0-0.4); Lymphocytes Absolute Auto 1.6 X10*3/uL (1.2-4.9); Lymphocytes Percent Auto 18.6 % (20-40); Mean Corpuscular HGB Conc 32.5 g/dl (31.0-35.0); Mean Corpuscular Hemoglobin 29.8 pg (27.0-33.0); Mean Corpuscular Volume 91.9 fL (80.0-98.0); Mean Platelet Volume 9.6 fL (9.4-12.3); Monocytes Absolute Auto 0.7 X10*3/uL (0.1-1.2); Monocytes Percent Auto 8.2 % (2-11); Neutrophils Absolute Auto 5.8 x10*3/uL (2.0-8.3); Platelet Count 249 X10*3/uL (160-400); Red Blood Count 3.82 X10*6/uL (4.20-5.50); Red Cell Distribution Width 12.5 % (11.0-16.0); White Blood Count 8.6 X10*3/uL (4.8-10.8)
[2021-11-28 20:45] LABS: Lithium 0.71 mmol/L (0.60-1.20)
[2021-11-28 20:56] LABS: Alanine Aminotransferase 11 U/L (0-31); Albumin Level 3.8 g/dL (3.5-5.0); Alkaline Phosphatase 93 U/L (39-117); Anion Gap 8 (12-20); Aspartate Amino Transferase 13 U/L (5-31); Bilirubin Direct < 0.2 mg/dL (0.0-0.5); Bilirubin Total 0.2 mg/dL (0.0-1.0); Blood Urea Nitrogen 10 mg/dL (9-16); Calcium 8.5 mg/dL (8.4-10.2); Carbon Dioxide 28 mmol/L (22-29); Chloride 109 mmol/L (96-108); Creatinine Clr Calc Pharmacy 110.3; Estimated Glomerular Filt Rate > 60; Glucose Random 88 mg/dL (60-115); Lipase 24 U/L (8-78); Sodium 141 mmol/L (135-145)
== END 2021-11-28 21:28 | disposition home or self-care (01) ==
PROVIDERS: Nurse Practitioner Family; Emergency Provider Internal Medicine
DX: G25.2 Other specified forms of tremor (principal); F32.A Depression, unspecified; F43.10 Post-traumatic stress disorder, unspecified; F60.3 Borderline personality disorder; E11.9 Type 2 diabetes mellitus without complications; E78.5 Hyperlipidemia, unspecified; F17.200 Nicotine dependence, unspecified, uncomplicated; Z79.899 Other long term (current) drug therapy; Z79.02 Long term (current) use of antithrombotics/antiplatelets
CPT/HCPCS: 36415; 80048; 80076; 80178; 83690; 85025; 99282; 99283

== ENCOUNTER 2021-11-30 22:21 | Emergency (ER) | payer MEDICARE, MEDICAID, SELFPAY ==
[2021-11-30 22:27] VITALS: BP 117/93; PULSE 110; RESP 18; TEMP 36.5; O2SAT 98; BMI 37.4
[2021-11-30 22:59] LABS: COVID-19 Test Negative (Negative)
--- NOTE | 2021-11-30 23:07 | ED.PSYCH ---
HPI - Psych General Chief Complaint: Psychiatric Symptoms Stated Complaint: SI Time Seen by Provider: 11/30/21 23:06 Source: patient and EMS Mode of arrival: EMS Limitations: no limitations History of Present Illness HPI Narrative: Patient is a 45 year old female presenting to the emergency department today with suicidal ideation and hearing voices. Patient states that she has been hearing voices lately and is feeling suicidal. Patient states that she was seen at [facility] yesterday.. Patient denies any dizziness, lightheadedness, abdominal pain, nausea, vomiting, fever, chills, blurry vision, double vision, loss of vision, chest pain, difficulty breathing, shortness of breath, back pain, night sweats, pain with urination, increased urinary frequency, increased urinary urgency, blood in her urine or stool, syncope or a near syncopal episode, recent trauma or falls, bowel incontinence, bladder incontinence, bowel retention, bladder retention, or any other complaints at this time. MD complaint: suicidal ideation and feels depressed Onset (ago): day(s) Duration: constant History of same: Yes Relieving factors: none Exacerbating factors: none Associated psychiatric symptoms: depression and suicidal ideation Associated symptoms: denies other symptoms Related Data Home Medications Medication Instructions Recorded Confirmed polyethylene glycol 3350 17 gram 17 g PO DAILY PRN 02/12/21 11/30/21 oral powder packet (Miralax) atorvastatin 10 mg tablet 1 tab PO DAILY 05/29/21 11/30/21 ferrous sulfate 325 mg (65 mg 1 tab PO DAILY 05/29/21 11/30/21 iron) tablet,delayed release fluticasone propionate 110 2 puff INHALATION BID 05/29/21 11/30/21 mcg/actuation HFA aerosol inhaler (Flovent HFA) metformin 500 mg tablet 1 tab PO BID 05/29/21 11/30/21 montelukast 10 mg tablet 1 tab PO BEDTIME 05/29/21 11/30/21 norethindrone (contraceptive) 0.35 0.35 mg PO DAILY 05/29/21 11/30/21 mg tablet (Deblitane) pantoprazole 40 mg tablet,delayed 1 tab PO BID@0630,1630 05/29/21 11/30/21 release verapamil 240 mg tablet,extended 1 tab PO BEDTIME 05/29/21 11/30/21 release albuterol sulfate 90 mcg/actuation 2 puff INHALATION Q4H PRN 06/15/21 11/30/21 aerosol inhaler (Ventolin HFA) ibuprofen 600 mg tablet 600 mg PO Q6H PRN 09/19/21 11/30/21 trazodone 150 mg tablet 150 mg PO BEDTIME PRN 11/05/21 11/30/21 clonazepam 0.5 mg tablet 0.5 mg PO QID PRN 11/11/21 11/30/21 lisinopril 5 mg tablet 1 tab PO DAILY 11/14/21 11/30/21 nicotine 21 mg/24 hr daily 1 patch TRANSDERMAL DAILY PRN 11/14/21 11/30/21 transdermal patch Previous Rx's Medication Instructions Recorded hydroxyzine HCl 50 mg tablet 50 mg PO QID PRN 30 Days #120 tab 07/27/21 chlorpromazine 25 mg tablet 75 mg PO Q4H PRN 30 Days #300 tab 09/29/21 fluoxetine 20 mg capsule 40 mg PO DAILY 30 Days #60 cap 09/29/21 lithium carbonate 450 mg 450 mg PO BEDTIME 30 Days #30 tab 10/18/21 tablet,extended release mirtazapine 7.5 mg tablet 7.5 mg PO BEDTIME MRX1 30 Days #60 10/18/21 tab prazosin 1 mg capsule 4 mg PO BEDTIME 30 Days #120 cap 10/18/21 Allergies Allergy/AdvReac Type Severity Reaction Status Date / Time Fish Containing Products Allergy Severe ANAPHYLAXIS Verified 11/14/21 08:35 codeine [Codeine] Allergy Unknown RASH Verified 11/14/21 08:35 Penicillins Allergy Unknown RASH Verified 11/14/21 08:35 prednisone [Prednisone] Allergy Unknown RASH Verified 11/14/21 08:35 Sulfa (Sulfonamide Allergy Unknown RASH Verified 11/14/21 08:35 Antibiotics) [Sulfa (Sulfonamides)] azithromycin [AZITHROMYCIN] AdvReac Severe RASH Verified 11/14/21 08:35 nicotine AdvReac Unknown HEART Verified 11/14/21 08:35 PALPITATION TO NICOTINE GUM Seafood Allergy Severe ANAPHYLAXIS Uncoded 11/05/21 21:13 From Geodon Allergy Unknown DYSURIA, Uncoded 11/05/21 21:13 RASH Review of Systems Constitutional: Constitutional: Reports no additional constitutional complaints, Denies chills, Denies fever(s) and Denies night sweats Eyes: Eyes: Reports no additional eye complaints, Denies blurry vision, Denies change in vision, Denies diplopia, Denies eye discharge, Denies loss of vision and Denies eye pain ENT: Denies dizziness Cardiovascular: Cardiovascular: Reports no additional cardiovascular complaints, Denies chest pain, Denies lightheadedness, Denies Loss of Consciousness and Denies dyspnea Respiratory: Respiratory: Reports no additional respiratory complaints and Denies dyspnea Gastrointestinal: Gastrointestinal: Reports no additional gastrointestinal complaints, Denies abdominal pain, Denies melena, Denies hematochezia, Denies change in bowel habits and Denies change in stool character Genitourinary: Genitourinary: Denies hematuria, Denies urinary frequency, Denies dysuria, Denies urinary incontinence, Denies urinary hesitancy and Denies urinary urgency Musculoskeletal: Musculoskeletal: Reports no additional musculoskeletal complaints, Denies numbness and Denies tingling Neurologic: Denies dizziness, Denies loss of vision, Denies numbness and Denies tingling Psychiatric: Psychiatric: Reports no additional psychiatric complaints, Reports auditory hallucinations and Reports suicidal ideation Endocrine: Endocrine: Reports no additional endocrine complaints Hematologic/Lymphatic: Hematologic/Lymphatic: Reports no additional hematologic/lymphatic complaints Allergic/Immunologic: Allergic/Immunologic: Reports no additional allergic/immunologic complaints [facility] Past Medical History Attestation statement: The following information was validated with the patient. Source: old records reviewed Medical History Bronchitis Diabetes type 2, controlled GERD (gastroesophageal reflux disease) Hyperlipidemia MDD (major depressive disorder), recurrent episode, severe Mood disorder Overdose PTSD (post-traumatic stress disorder) Social History Social History 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: None 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 Other:: Patient lives in care home. 4 in total live in care home. Housing: Other Housing Other:: residential Do you presently have visiting nurse or other home services: No (Medication administered by care home staff) Unable to assess alcohol history related to: Unknown Alcohol intake: never Patient Tobacco Use Status: Current everyday Tobacco user Tobacco use type: Cigarette Cigarette Packs Per Day: 1 Cigarettes Per Day: 20 Years Smoked: 20 e-Cigarette/Vaping Use: Never Used Second Hand Smoke Exposure: Yes Substance Use Type: Caffiene Patient : No service: No Sexual orientation: Don't Know Physical Exam Vital Signs: Vital Signs: Last Vital Signs Temp 97.7 F 11/30/21 22:27 Pulse 110 H 11/30/21 22:27 Resp 18 11/30/21 22:27 BP 117/93 H 11/30/21 22:27 Pulse Ox 98 11/30/21 22:27 BMI result Body Mass Index 37.4 Const: General: cooperative, no acute distress, alert and awake Nutritional Appearance: well nourished Orientation/consciousness: patient oriented x3 Limitations: no limitations HENMT: Head: Yes normal to inspection and Yes atraumatic Ears: hearing grossly normal bilaterally and external ears normal General nose exam: Normal external nose present, no nasal discharge noted and no epistaxis Face and sinus: Yes normal facial exam, No abrasion and No laceration Mouth: Normal oral and palatal mucosa present, no drooling and no muffled voice Eyes: General: appearance normal, both eyes and all related structures Periorbital: periorbital findings normal Eyelids: Yes eyelids normal Conjunctivae: conjunctivae normal Pupils: Equal, round and reactive pupils present EOM: EOMs intact bilaterally Neck: Neck: Yes normal visual inspection, Yes full ROM and Yes no lymphadenopathy Chest: Chest palpation & inspection: normal inspection of the chest Resp: Effort & Inspection: normal respiratory effort and able to speak in complete sentences Auscultation: clear to auscultation bilaterally Cardio: Rate: regular rate Rhythm: regular rhythm GI: Inspection: Yes normal to inspection Neuro: General: patient oriented x3 and moves all extremities Cranial nerves: Yes Equal, round and reactive pupils present Cognition (Neuro): normal cognition Motor exam (neuro): 5/5 motor strength present throughout Sensory Exam: Normal double simultaneous stimulation for sensation Coordination: [id number] test normal Extrem: General: Yes normal to inspection, Yes full ROM and Yes capillary refill normal Psych: Appearance: grossly normal Mental Status: mental status grossly normal Affect: normal affect Attitude: cooperative Thought process: Normal thought process present Thought content: Suicidality present Insight: Good insight present (Psych) MDM - Psych MDM Narrative Medical decision making narrative: Patient is a 45 year old female presenting to the emergency department today with depression and auditory hallucinations. Patient's physical exam was unremarkable. I explained my physical exam findings as well as all test results to the patient. I answered all questions asked by the patient. Upon reevaluation, patient declined all suicidal ideation and states that now she would like to go home. Patient states that she has no thoughts of harming herself or others and would like to go home and follow up on an outpatient basis with the psychiatry team. I stressed the importance of the patient following up with her PCP and psychiatrist. I stressed the importance of the patient returning to the emergency department immediately if she were to have any suicidal or homicidal ideation, shortness of breath, difficulty breathing, abdominal pain, nausea, vomiting, fever, chills, or any other complaints. Patient verbalized agreement and understanding with this treatment plan and discharge. Differential Diagnosis Differential diagnosis: Likely depression Medical Records Attestation: I reviewed the patient's medical records. Lab Data Attestation: I reviewed the patient's lab results. Labs: Lab Results 11/30/21 11/30/21 Range/Units 22:33 Unknown Urine Opiates Screen Not Detected (Not Detect) Urine Fentanyl Screen Not Detected (Not Detect) Ur Barbiturates Screen Not Detected (Not Detect) Ur Phencyclidine Scrn Not Detected (Not Detect) Ur Amphetamines Screen Not Detected (Not Detect) U Benzodiazepines Scrn Not Detected (Not Detect) Urine Cocaine Screen Not Detected (Not Detect) U Marijuana (THC) Screen Not Detected (Not Detect) COVID-19 ([facility]ICK) Negative (Negative) COVID-19 Clin Com See Note Discharge Plan Discharge Clinical Impression: Depression Patient Disposition: Home, Self-Care Instructions: Depression (ED) Prescriptions: No Action polyethylene glycol 3350 [Miralax] 17 gram Powder In Packet 17 g PO DAILY PRN (Reason: Constipation) 0RF metformin 500 mg tablet 1 tab PO BID 0RF atorvastatin 10 mg tablet 1 tab PO DAILY 0RF pantoprazole 40 mg tablet,delayed release (DR/EC) 1 tab PO BID@0630,1630 0RF verapamil 240 mg tablet extended release 1 tab PO BEDTIME 0RF montelukast 10 mg tablet 1 tab PO BEDTIME 0RF ferrous sulfate 325 mg (65 mg iron) tablet,delayed release (DR/EC) 1 tab PO DAILY 0RF Flovent HFA 110 mcg/actuation HFA aerosol inhaler 2 puff inhalation BID 0RF norethindrone (contraceptive) [Deblitane] 0.35 mg Tablet 0.35 mg PO DAILY 0RF albuterol sulfate [Ventolin HFA] 90 mcg/actuation HFA aerosol inhaler 2 puff inhalation Q4H PRN (Reason: Shortness Of Breath) 0RF trazodone 150 mg tablet 150 mg PO BEDTIME PRN (Reason: insomnia) 0RF clonazepam 0.5 mg tablet 0.5 mg PO QID PRN (Reason: anxiety/AH) 0RF Rx Instructions: may take within 1 hour of each other; max dose 1mg daily hydroxyzine HCl 50 mg Tablet 50 mg PO QID PRN (Reason: Anxiety) 30 Days Qty: 120 0RF ibuprofen 600 mg Tablet 600 mg PO Q6H PRN (Reason: Mild Pain (Scale Score 1-4)) 0RF chlorpromazine 25 mg Tablet 75 mg PO Q4H PRN (Reason: agitation) 30 Days Qty: 300 0RF fluoxetine 20 mg Capsule 40 mg PO DAILY 30 Days Qty: 60 0RF prazosin 1 mg Capsule 4 mg PO BEDTIME 30 Days Qty: 120 0RF Protocol: Hold for SBP< HOLD for SBP < : 90 lithium carbonate 450 mg Tablet Extended Release 450 mg PO BEDTIME 30 Days Qty: 30 0RF mirtazapine 7.5 mg Tablet 7.5 mg PO BEDTIME MRX1 30 Days Qty: 60 0RF lisinopril 5 mg tablet 1 tab PO DAILY 0RF nicotine 21 mg/24 hr Patch 24 Hour 1 patch TRANSDERMAL DAILY PRN (Reason: Nicotine Cravings) 0RF Print Language: Luxembourger
[2021-11-30 23:15] LABS: Amphetamine Screen Urine Not Detected (Not Detect); Barbiturates, Urine Not Detected (Not Detect); Benzodiazepines Screen Urine Not Detected (Not Detect); Cannabinoid Screen Urine Not Detected (Not Detect); Cocaine Screen Urine Not Detected (Not Detect); Fentanyl, urine Not Detected (Not Detect); Opiate Screen Urine Not Detected (Not Detect); Phencyclidine Screen Urine Not Detected (Not Detect)
--- NOTE | 2021-11-30 23:49 | MHC.CARE ---
Pt is requesting to return home. She is denying SI at this time and reports feeling safe to return. CARE team coordinating [employer] for her to return to her skilled nursing.
== END 2021-12-01 00:09 | disposition home or self-care (01) ==
PROVIDERS: Emergency Provider Student in an Organized Health Care Education/Training Program
DX: F32.A Depression, unspecified (principal); R45.851 Suicidal ideations; R44.0 Auditory hallucinations; F60.3 Borderline personality disorder; F43.10 Post-traumatic stress disorder, unspecified; E11.9 Type 2 diabetes mellitus without complications; E78.5 Hyperlipidemia, unspecified; F17.200 Nicotine dependence, unspecified, uncomplicated; Z20.822 Contact with and (suspected) exposure to COVID-19; Z79.02 Long term (current) use of antithrombotics/antiplatelets; Z79.899 Other long term (current) drug therapy
CPT/HCPCS: 80307; 87635; 99283; 99284

== ENCOUNTER 2021-12-06 11:15 | Emergency (ER) | payer MEDICARE, MEDICAID, SELFPAY ==
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
[2021-12-06 11:46] VITALS: BP 128/74; PULSE 84; RESP 18; TEMP 36.5; BMI 37.5
[2021-12-06] MEDS: LORazepam 1 MG TABLET 2 MG PO (11:55)
--- NOTE | 2021-12-06 12:40 | PC.NURSE ---
Pt's belongings placed in ED laundry/storage. 2 pt belonging bags with pt label on them.
[2021-12-06 13:39] LABS: MANUAL DIFF FLAG NO
[2021-12-06 13:40] LABS: Basophils Percent Auto 0.5 % (0-2); Eosinophils Absolute Auto 0.3 X10*3/uL (0.0-0.4); Eosinophils Percent Auto 4.5 % (0-4); Hematocrit 36.3 % (37.0-47.0); Hemoglobin 11.8 g/dl (12.0-16.0); Imm Gran Abs Auto 0.03 X10*3/uL (0.00-0.03); Imm Gran Pct Auto 0.4 % (0.0-0.4); Lymphocytes Absolute Auto 1.5 X10*3/uL (1.2-4.9); Lymphocytes Percent Auto 19.9 % (20-40); Mean Corpuscular HGB Conc 32.5 g/dl (31.0-35.0); Mean Corpuscular Hemoglobin 29.4 pg (27.0-33.0); Mean Corpuscular Volume 90.3 fL (80.0-98.0); Mean Platelet Volume 9.6 fL (9.4-12.3); Monocytes Absolute Auto 0.5 X10*3/uL (0.1-1.2); Monocytes Percent Auto 6.7 % (2-11); Neutrophils Absolute Auto 5.2 x10*3/uL (2.0-8.3); Platelet Count 259 X10*3/uL (160-400); Red Blood Count 4.02 X10*6/uL (4.20-5.50); Red Cell Distribution Width 12.4 % (11.0-16.0); White Blood Count 7.6 X10*3/uL (4.8-10.8)
[2021-12-06 13:56] LABS: Alanine Aminotransferase 36 U/L (0-31); Alkaline Phosphatase 94 U/L (39-117); Anion Gap 14 (12-20); Aspartate Amino Transferase 28 U/L (5-31); Bilirubin Direct < 0.2 mg/dL (0.0-0.5); Bilirubin Total 0.2 mg/dL (0.0-1.0); Blood Urea Nitrogen 10 mg/dL (9-16); Calcium 8.9 mg/dL (8.4-10.2); Carbon Dioxide 23 mmol/L (22-29); Chloride 106 mmol/L (96-108); Creatinine Clr Calc Pharmacy 111.8; Estimated Glomerular Filt Rate > 60; Glucose Random 94 mg/dL (60-115); Potassium 4.3 mmol/L (3.3-5.1); Sodium 139 mmol/L (135-145); Total Protein 6.5 g/dL (6.5-8.0)
[2021-12-06 14:04] LABS: Lithium < 0.10 mmol/L (0.60-1.20)
--- NOTE | 2021-12-06 14:04 | MHC.CARE ---
CARE Team responded to consult request to speak with patient in the ED who had arrived by ambulance this morning after a behavior outburst with suicidal statements. Met with patient in the main ED, she was alert and oriented,immediately stated, I have a birthday coming up and want to be around for it. Denied wanting to end her life, said she did not mean what she said earlier. Patient reported being out of [facility] due to her not telling staff she was out and took responsibility for that. Noted that she feels better without Rem[facility]t and plans to speak with her team. Call to the residence and spoke to Sumeet, he said Lucita is welcome back home at any time. CARE Team to coordinate ride. Provider updated
[2021-12-06 14:06] LABS: COVID-19 Test Negative (Negative); IDNOW Serial# 55D5AD1C
== END 2021-12-06 14:08 | disposition home or self-care (01) ==
PROVIDERS: Emergency Provider Emergency Medicine
DX: S50.812A Abrasion of left forearm, initial encounter (principal); X78.0XXA Intentional self-harm by sharp glass, initial encounter; F41.9 Anxiety disorder, unspecified; R44.0 Auditory hallucinations; F32.A Depression, unspecified; F43.10 Post-traumatic stress disorder, unspecified; E11.9 Type 2 diabetes mellitus without complications; E78.5 Hyperlipidemia, unspecified; F17.200 Nicotine dependence, unspecified, uncomplicated; Y93.9 Activity, unspecified; Y92.049 Unspecified place in boarding-house as the place of occurrence of the external cause; Y99.9 Unspecified external cause status; Z91.52 Personal history of nonsuicidal self-harm; Z79.02 Long term (current) use of antithrombotics/antiplatelets; Z79.899 Other long term (current) drug therapy
CPT/HCPCS: 36415; 80048; 80076; 80178; 85025; 87635

== ENCOUNTER 2021-12-06 16:47 | Emergency (ER) | payer MEDICARE, MEDICAID, SELFPAY ==
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
[2021-12-06 16:57] VITALS: BP 142/88; BP 154/95; PULSE 106; PULSE 96; RESP 20; TEMP 36.7; O2SAT 97; O2SAT 99; BMI 37.9
[2021-12-06 17:26] LABS: Appearance Urine CLEAR; Color Urine STRAW; Glucose Urine UA NEG (NEG); Leukocyte Esterase Urine NEG (NEG); Nitrite Urine NEG (NEG); PH 6.5 (5.0-8.0); Specific Gravity - Urine <= 1.005 (1.005-1.025); Urine Blood NEG (NEG); Urine Ketones NEG (NEG); Urine Protein NEG (NEG-TRACE)
[2021-12-06 17:40] LABS: Amphetamine Screen Urine Not Detected (Not Detect); Barbiturates, Urine Not Detected (Not Detect); Benzodiazepines Screen Urine Not Detected (Not Detect); Cannabinoid Screen Urine Not Detected (Not Detect); Cocaine Screen Urine Not Detected (Not Detect); Fentanyl, urine Not Detected (Not Detect); Opiate Screen Urine Not Detected (Not Detect); Phencyclidine Screen Urine Not Detected (Not Detect)
[2021-12-06 17:41] LABS: COVID-19 Test Negative (Negative)
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
== END 2021-12-06 19:34 | disposition home or self-care (01) ==
PROVIDERS: Emergency Provider Emergency Medicine; PCP Nurse Practitioner Family
DX: T21.12XA Burn of first degree of abdominal wall, initial encounter (principal); T31.0 Burns involving less than 10% of body surface; X08.8XXA Exposure to other specified smoke, fire and flames, initial encounter; F43.10 Post-traumatic stress disorder, unspecified; F32.A Depression, unspecified; F41.9 Anxiety disorder, unspecified; R44.0 Auditory hallucinations; Z20.822 Contact with and (suspected) exposure to COVID-19; E11.9 Type 2 diabetes mellitus without complications; E78.5 Hyperlipidemia, unspecified; F17.200 Nicotine dependence, unspecified, uncomplicated; Y93.9 Activity, unspecified; Y92.049 Unspecified place in boarding-house as the place of occurrence of the external cause; Y99.9 Unspecified external cause status; Z91.52 Personal history of nonsuicidal self-harm; Z79.02 Long term (current) use of antithrombotics/antiplatelets; Z79.899 Other long term (current) drug therapy
CPT/HCPCS: 36415; 80048; 80076; 80178; 80307; 81003; 85025; 87635; 99284

== ENCOUNTER 2021-12-06 21:17 | Emergency (ER) | payer MEDICARE, MEDICAID, SELFPAY ==
--- NOTE | 2021-12-06 22:21 | PC.NURSE ---
Pt discharged from the pod @ 1930. Pt waiting in the WR for a Lyft home, in contact with the Care Team. Per Care Team, Care Team was unable to obtain pt a Lyft home. After waiting 1.5 hours for a ride home, pt checked back into the ED, stating she was scared that she had not been able to get a Lyft home yet. Care Team notified and in contact with pt regarding transporation home.
== END 2021-12-06 22:25 | disposition left against medical advice (07) ==
PROVIDERS: Emergency Provider Emergency Medicine; PCP Nurse Practitioner Family
DX: F41.9 Anxiety disorder, unspecified (principal)

== ENCOUNTER 2021-12-07 21:43 | Emergency (ER) | payer MEDICARE, MEDICAID, SELFPAY ==
--- NOTE | 2021-12-07 21:57 | ED.PSYCH ---
HPI - Psych General Chief Complaint: Psychiatric Symptoms Stated Complaint: Crisis Time Seen by Provider: 12/07/21 21:57 Source: patient and EMS Mode of arrival: ambulatory Limitations: no limitations History of Present Illness HPI Narrative: Patient is a 45 year old female presenting to the emergency department today with increased depression and command auditory hallucinations. Patient states that today she is more depressed and would like to talk to someone. Patient denies any dizziness, lightheadedness, abdominal pain, nausea, vomiting, fever, chills, blurry vision, double vision, loss of vision, chest pain, difficulty breathing, shortness of breath, back pain, night sweats, pain with urination, increased urinary frequency, increased urinary urgency, blood in her urine or stool, syncope or a near syncopal episode, recent trauma or falls, bowel incontinence, bladder incontinence, bowel retention, bladder retention, or any other complaints at this time. MD complaint: feels depressed Onset (ago): year(s) Duration: constant History of same: Yes Relieving factors: none Exacerbating factors: none Associated psychiatric symptoms: depression Associated symptoms: denies other symptoms Related Data Home Medications Medication Instructions Recorded Confirmed polyethylene glycol 3350 17 gram 17 g PO DAILY PRN 02/12/21 12/08/21 oral powder packet (Miralax) atorvastatin 10 mg tablet 1 tab PO DAILY 05/29/21 12/08/21 ferrous sulfate 325 mg (65 mg 1 tab PO DAILY 05/29/21 12/08/21 iron) tablet,delayed release fluticasone propionate 110 2 puff INHALATION BID 05/29/21 12/08/21 mcg/actuation HFA aerosol inhaler (Flovent HFA) metformin 500 mg tablet 1 tab PO BID 05/29/21 12/08/21 montelukast 10 mg tablet 1 tab PO BEDTIME 05/29/21 12/08/21 norethindrone (contraceptive) 0.35 0.35 mg PO DAILY 05/29/21 12/08/21 mg tablet (Deblitane) pantoprazole 40 mg tablet,delayed 1 tab PO BID@0630,1630 05/29/21 12/08/21 release verapamil 240 mg tablet,extended 1 tab PO BEDTIME 05/29/21 12/08/21 release albuterol sulfate 90 mcg/actuation 2 puff INHALATION Q4H PRN 06/15/21 12/08/21 aerosol inhaler (Ventolin HFA) ibuprofen 600 mg tablet 600 mg PO Q6H PRN 09/19/21 12/08/21 trazodone 150 mg tablet 150 mg PO BEDTIME PRN 11/05/21 12/08/21 clonazepam 0.5 mg tablet 0.5 mg PO QID PRN 11/11/21 12/08/21 lisinopril 5 mg tablet 1 tab PO DAILY 11/14/21 12/08/21 nicotine 21 mg/24 hr daily 1 patch TRANSDERMAL DAILY PRN 11/14/21 12/08/21 transdermal patch Previous Rx's Medication Instructions Recorded hydroxyzine HCl 50 mg tablet 50 mg PO QID PRN 30 Days #120 tab 07/27/21 chlorpromazine 25 mg tablet 75 mg PO Q4H PRN 30 Days #300 tab 09/29/21 fluoxetine 20 mg capsule 40 mg PO DAILY 30 Days #60 cap 09/29/21 lithium carbonate 450 mg 450 mg PO BEDTIME 30 Days #30 tab 10/18/21 tablet,extended release mirtazapine 7.5 mg tablet 7.5 mg PO BEDTIME MRX1 30 Days #60 10/18/21 tab prazosin 1 mg capsule 4 mg PO BEDTIME 30 Days #120 cap 10/18/21 Allergies Allergy/AdvReac Type Severity Reaction Status Date / Time Fish Containing Products Allergy Severe ANAPHYLAXIS Verified 11/14/21 08:35 codeine [Codeine] Allergy Unknown RASH Verified 11/14/21 08:35 Penicillins Allergy Unknown RASH Verified 11/14/21 08:35 prednisone [Prednisone] Allergy Unknown RASH Verified 11/14/21 08:35 Sulfa (Sulfonamide Allergy Unknown RASH Verified 11/14/21 08:35 Antibiotics) [Sulfa (Sulfonamides)] azithromycin [AZITHROMYCIN] AdvReac Severe RASH Verified 11/14/21 08:35 nicotine AdvReac Unknown HEART Verified 11/14/21 08:35 PALPITATION TO NICOTINE GUM Seafood Allergy Severe ANAPHYLAXIS Uncoded 11/05/21 21:13 From Geodon Allergy Unknown DYSURIA, Uncoded 11/05/21 21:13 RASH Review of Systems Constitutional: Constitutional: Reports no additional constitutional complaints, Denies chills, Denies fever(s) and Denies night sweats Eyes: Eyes: Reports no additional eye complaints, Denies blurry vision, Denies change in vision, Denies diplopia, Denies eye discharge, Denies loss of vision and Denies eye pain ENT: Denies dizziness Cardiovascular: Cardiovascular: Reports no additional cardiovascular complaints, Denies chest pain, Denies lightheadedness, Denies Loss of Consciousness and Denies dyspnea Respiratory: Respiratory: Reports no additional respiratory complaints and Denies dyspnea Gastrointestinal: Gastrointestinal: Reports no additional gastrointestinal complaints, Denies abdominal pain, Denies melena, Denies hematochezia, Denies change in bowel habits and Denies change in stool character Genitourinary: Genitourinary: Denies hematuria, Denies urinary frequency, Denies dysuria, Denies urinary incontinence, Denies urinary hesitancy and Denies urinary urgency Musculoskeletal: Musculoskeletal: Reports no additional musculoskeletal complaints, Denies numbness and Denies tingling Neurologic: Denies dizziness, Denies loss of vision, Denies numbness and Denies tingling Psychiatric: Psychiatric: Reports no additional psychiatric complaints and Reports depression Endocrine: Endocrine: Reports no additional endocrine complaints Hematologic/Lymphatic: Hematologic/Lymphatic: Reports no additional hematologic/lymphatic complaints Allergic/Immunologic: Allergic/Immunologic: Reports no additional allergic/immunologic complaints [facility] Past Medical History Attestation statement: The following information was validated with the patient. Source: old records reviewed Medical History Bronchitis Diabetes type 2, controlled GERD (gastroesophageal reflux disease) Hyperlipidemia MDD (major depressive disorder), recurrent episode, severe Mood disorder Overdose PTSD (post-traumatic stress disorder) Social History Social History 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: None 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 Other:: [facility] in [facility]. 4 in total live in [facility]. Housing: Other Housing Other:: [facility] Do you presently have visiting nurse or other home services: No (Medication administered by [facility] staff) Unable to assess alcohol history related to: Unknown Alcohol intake: never Patient Tobacco Use Status: Current everyday Tobacco user Tobacco use type: Cigarette Cigarette Packs Per Day: 1 Cigarettes Per Day: 20 Years Smoked: 20 e-Cigarette/Vaping Use: Never Used Second Hand Smoke Exposure: Yes Substance Use Type: Caffiene Advance Directives: No Advance Directives Information Provided: No Advance Directives on File: No Patient : No service: No Sexual orientation: Don't Know Physical Exam Vital Signs: Vital Signs: Last Vital Signs Temp 98.6 F 12/08/21 00:11 Pulse 96 12/08/21 00:11 Resp 17 12/08/21 00:11 BP 113/58 L 12/08/21 00:11 Pulse Ox 96 12/08/21 00:11 BMI result Body Mass Index 37.4 Const: General: cooperative, no acute distress, alert and awake Nutritional Appearance: well nourished Orientation/consciousness: patient oriented x3 Limitations: no limitations HENMT: Head: Yes normal to inspection and Yes atraumatic Ears: hearing grossly normal bilaterally and external ears normal General nose exam: Normal external nose present, no nasal discharge noted and no epistaxis Face and sinus: Yes normal facial exam, No abrasion and No laceration Mouth: Normal oral and palatal mucosa present, no drooling and no muffled voice Eyes: General: appearance normal, both eyes and all related structures Periorbital: periorbital findings normal Eyelids: Yes eyelids normal Conjunctivae: conjunctivae normal Pupils: Equal, round and reactive pupils present EOM: EOMs intact bilaterally Neck: Neck: Yes normal visual inspection, Yes full ROM and Yes no lymphadenopathy Chest: Chest palpation & inspection: normal inspection of the chest Resp: Effort & Inspection: normal respiratory effort and able to speak in complete sentences Auscultation: clear to auscultation bilaterally Cardio: Rate: regular rate Rhythm: regular rhythm GI: Inspection: Yes normal to inspection Neuro: General: patient oriented x3 and moves all extremities Cranial nerves: Yes Equal, round and reactive pupils present Cognition (Neuro): normal cognition Motor exam (neuro): 5/5 motor strength present throughout Sensory Exam: Normal double simultaneous stimulation for sensation Coordination: [id number] test normal Extrem: General: Yes normal to inspection, Yes full ROM and Yes capillary refill normal Psych: Appearance: grossly normal Mental Status: mental status grossly normal Affect: normal affect Attitude: cooperative Thought process: Normal thought process present Thought content: Normal thought content present Insight: Good insight present (Psych) MDM - Psych MDM Narrative Medical decision making narrative: Patient is a 45 year old female presenting to the emergency department today with increased depression. Patient's very well known to this facility and is assigned a rehabilitation case coordinator. Patient's physical exam was unremarkable. I explained my physical exam findings to the patient. I answered all questions asked by the patient. Patient is going to speak with her geriatric case manager and the care team, tomorrow morning. Patient is not currently suicidal or homicidal. Physician observation began 2252. Differential Diagnosis Differential diagnosis: Likely depression Medical Records Attestation: I reviewed the patient's medical records. Lab Data Labs: Lab Results 12/07/21 12/07/21 12/07/21 Range/Units 23:31 23:31 23:31 Urine Color STRAW Urine Appearance CLEAR Urine pH 6.0 (5.0-8.0) Ur Specific Carpenter <= 1.005 (1.005-1.025) Urine Protein NEG (NEG-TRACE) MG/DL Urine Glucose (UA) NEG (NEG) MG/DL Urine Ketones NEG (NEG) MG/DL Urine Blood NEG (NEG) Urine Nitrite NEG (NEG) Ur Leukocyte Esterase 1+ H (NEG) Urine RBC 0 (0) /HPF Urine WBC 1-4 (0-4) /HPF Ur Squamous Epith Cells 2+ /LPF Urine Bacteria 2+ /LPF Urine Opiates Screen Not Detected (Not Detect) Urine Fentanyl Screen Not Detected (Not Detect) Ur Barbiturates Screen Not Detected (Not Detect) Ur Phencyclidine Scrn Not Detected (Not Detect) Ur Amphetamines Screen Not Detected (Not Detect) U Benzodiazepines Scrn Not Detected (Not Detect) Urine Cocaine Screen Not Detected (Not Detect) U Marijuana (THC) Screen Not Detected (Not Detect) COVID-19 (NICK) Negative (Negative) COVID-19 Clin Com See Note Discharge Plan Discharge Clinical Impression: Depression Patient Disposition: Still a Patient Prescriptions: No Action polyethylene glycol 3350 [Miralax] 17 gram Powder In Packet 17 g PO DAILY PRN (Reason: Constipation) 0RF metformin 500 mg tablet 1 tab PO BID 0RF atorvastatin 10 mg tablet 1 tab PO DAILY 0RF pantoprazole 40 mg tablet,delayed release (DR/EC) 1 tab PO BID@0630,1630 0RF verapamil 240 mg tablet extended release 1 tab PO BEDTIME 0RF montelukast 10 mg tablet 1 tab PO BEDTIME 0RF ferrous sulfate 325 mg (65 mg iron) tablet,delayed release (DR/EC) 1 tab PO DAILY 0RF Flovent HFA 110 mcg/actuation HFA aerosol inhaler 2 puff inhalation BID 0RF norethindrone (contraceptive) [Deblitane] 0.35 mg Tablet 0.35 mg PO DAILY 0RF albuterol sulfate [Ventolin HFA] 90 mcg/actuation HFA aerosol inhaler 2 puff inhalation Q4H PRN (Reason: Shortness Of Breath) 0RF trazodone 150 mg tablet 150 mg PO BEDTIME PRN (Reason: insomnia) 0RF clonazepam 0.5 mg tablet 0.5 mg PO QID PRN (Reason: anxiety/AH) 0RF Rx Instructions: may take within 1 hour of each other; max dose 1mg daily hydroxyzine HCl 50 mg Tablet 50 mg PO QID PRN (Reason: Anxiety) 30 Days Qty: 120 0RF ibuprofen 600 mg Tablet 600 mg PO Q6H PRN (Reason: Mild Pain (Scale Score 1-4)) 0RF chlorpromazine 25 mg Tablet 75 mg PO Q4H PRN (Reason: agitation) 30 Days Qty: 300 0RF fluoxetine 20 mg Capsule 40 mg PO DAILY 30 Days Qty: 60 0RF prazosin 1 mg Capsule 4 mg PO BEDTIME 30 Days Qty: 120 0RF Protocol: Hold for SBP< HOLD for SBP < : 90 lithium carbonate 450 mg Tablet Extended Release 450 mg PO BEDTIME 30 Days Qty: 30 0RF mirtazapine 7.5 mg Tablet 7.5 mg PO BEDTIME MRX1 30 Days Qty: 60 0RF lisinopril 5 mg tablet 1 tab PO DAILY 0RF nicotine 21 mg/24 hr Patch 24 Hour 1 patch TRANSDERMAL DAILY PRN (Reason: Nicotine Cravings) 0RF Print Language: Pashto
[2021-12-07 22:07] VITALS: BP 189/102; PULSE 125; RESP 20; TEMP 36.2; O2SAT 97; BMI 37.4
[2021-12-07 23:42] LABS: Appearance Urine CLEAR; Color Urine STRAW; Glucose Urine UA NEG (NEG); Leukocyte Esterase Urine 1+ (NEG); Nitrite Urine NEG (NEG); Specific Gravity - Urine <= 1.005 (1.005-1.025); Urine Blood NEG (NEG); Urine Ketones NEG (NEG); Urine Protein NEG (NEG-TRACE)
[2021-12-07 23:48] LABS: Bacteria Urine 2+ /LPF; RBC Urine 0 /HPF (0); Squamous Epithelial Cell Urine 2+ /LPF
[2021-12-07 23:53] LABS: Amphetamine Screen Urine Not Detected (Not Detect); Barbiturates, Urine Not Detected (Not Detect); Benzodiazepines Screen Urine Not Detected (Not Detect); Cannabinoid Screen Urine Not Detected (Not Detect); Cocaine Screen Urine Not Detected (Not Detect); Fentanyl, urine Not Detected (Not Detect); Opiate Screen Urine Not Detected (Not Detect); Phencyclidine Screen Urine Not Detected (Not Detect)
[2021-12-07 23:56] LABS: COVID-19 Test Negative (Negative)
[2021-12-08 00:11] VITALS: BP 113/58; PULSE 96; RESP 17; TEMP 37; O2SAT 96
--- NOTE | 2021-12-08 06:50 | PC.NURSE ---
Patient slept through the night, no distress observed/reported, behavior appropriate and non concerning at this time, medication rec completed/pending provider's approval compliant, pending care team evaluation, will continue to monitor.
--- NOTE | 2021-12-08 07:18 | PC.NURSE ---
patient appears to remain asleep at present respirations are even and unlabored, patient appears in no distress
[2021-12-08] MEDS: metFORMIN HCl 500 MG TABLET PO (10:25)
[2021-12-08] MEDS: Fluticasone Propionate 100 MCG BLST.W.DEV 2 PUFF INHALE (10:26)
[2021-12-08] MEDS: Atorvastatin Calcium 10 MG TABLET PO (10:26)
[2021-12-08] MEDS: Ferrous Sulfate 324 MG TABLET.DR PO (10:26)
[2021-12-08] MEDS: lisinopriL 5 MG TABLET PO (10:26)
[2021-12-08] MEDS: FLUoxetine HCl 20 MG CAPSULE 40 MG PO (10:26)
--- NOTE | 2021-12-08 12:28 | MHC.CARE ---
CARE Team meets with pt for risk assessment. Pt is very well known to the CARE Team. She reports that she came to the ED last night after telling her staff she was suicidal, prompting them to call EMS. Pt states that she had a difficult night and was hearing voices. She identifies feeling overwhelmed, and subsequently experiencing suicidal thoughts. Pt denies SI at this time, stating she she is feeling better and would like to discharge back to the custodial. She denies self harm ideation. 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 Pt states that has lived in the same custodial for a long time and is feeling board and stuck there. She also identifies that she would like to return to a day program, but is fearful that they will not be able to work through crises with her when they come up. CARE Team speaks with Toni Pittman, farm general manager from pt's custodial, [facility]. CARE Team and Toni discuss pt's current strengths and needs and discuss current plans to support pt with increasing self regulation in the community and decreasing visits to the ED. CARE Team engages pt in safety planning and making a plan for the rest of her day. Pt is able to identify activities to keep herself distracted, and agrees that a check in call with CARE Team would be helpful. CARE Team will call to check in at 1530. Plan is discussed with TIMI Estrella, who agrees with plan to discharge pt.
--- NOTE | 2021-12-08 15:34 | MHC.CARE ---
CARE Team engages pt in a check in call. Pt reports that she has been doing well since she left the ED, went to spend time with a friend. CARE Team engages pt in making a plan for tonight. She plans on eating dinner, calling N for support call, coloring, and then going to bed. She plans to ask her staff for a PRN if needed. She denies any current sx.
== END 2021-12-08 12:37 | disposition home or self-care (01) ==
PROVIDERS: Physician Assistant Medical; Emergency Provider Emergency Medicine
DX: F32.A Depression, unspecified (principal); R44.0 Auditory hallucinations; Z20.822 Contact with and (suspected) exposure to COVID-19; F43.10 Post-traumatic stress disorder, unspecified; F60.3 Borderline personality disorder; E11.9 Type 2 diabetes mellitus without complications; E78.5 Hyperlipidemia, unspecified; F17.200 Nicotine dependence, unspecified, uncomplicated; Z79.02 Long term (current) use of antithrombotics/antiplatelets; Z79.899 Other long term (current) drug therapy; Z79.84 Long term (current) use of oral hypoglycemic drugs
CPT/HCPCS: 80307; 81001; 87086; 87635; 99284

== ENCOUNTER 2021-12-26 21:33 | Emergency (ER) | payer MEDICARE, MEDICAID, SELFPAY ==
[2021-12-26 21:42] VITALS: BP 140/103; PULSE 109; RESP 18; TEMP 37.2; O2SAT 99; BMI 37.4
[2021-12-26 22:08] LABS: Appearance Urine CLEAR; Color Urine YELLOW; Glucose Urine UA NEG (NEG); Leukocyte Esterase Urine NEG (NEG); Nitrite Urine NEG (NEG); Specific Gravity - Urine <= 1.005 (1.005-1.025); Urine Blood NEG (NEG); Urine Ketones NEG (NEG); Urine Protein NEG (NEG-TRACE)
[2021-12-26 22:10] LABS: UPreg QC Valid YES; Urine Pregnancy NEGATIVE (NEGATIVE)
--- NOTE | 2021-12-26 22:12 | ED.PSYCH ---
HPI - Psych General Chief Complaint: Psychiatric Symptoms Stated Complaint: section 12/crisis Time Seen by Provider: 12/26/21 21:39 Source: patient and EMS Mode of arrival: ambulatory Limitations: no limitations History of Present Illness HPI Narrative: This is a 46-year-old female past medical history borderline personality disorder, depression, anxiety, bipolar 2 with melancholic features, PTSD, DM, GERD presents to the ED with?auditory and visual hallucinations X1 day. Patient tells me she is seeing her all in hearing her speak to her. She tells me my aunt is telling me come to have an with me . Denies tactile hallucinations. She denies drug use, alcohol use she tells me she is a current daily smoker.? Patient denies any medical complaints at this time.? She denies chest pain, shortness of breath, fevers, chills, nausea, vomiting, diarrhea, abdominal pain.?Taking all meds as prescribed. Denies SI and HI MD complaint: hallucinations Onset (ago): day(s) Duration: getting worse History of same: Yes Relieving factors: none Exacerbating factors: none Associated psychiatric symptoms: none Associated symptoms: denies other symptoms Treatments prior to arrival: none Related Data Home Medications Medication Instructions Recorded Confirmed polyethylene glycol 3350 17 gram 17 g PO DAILY PRN 02/12/21 12/26/21 oral powder packet (Miralax) atorvastatin 10 mg tablet 1 tab PO DAILY 05/29/21 12/26/21 ferrous sulfate 325 mg (65 mg 1 tab PO DAILY 05/29/21 12/26/21 iron) tablet,delayed release fluticasone propionate 110 2 puff INHALATION BID 05/29/21 12/26/21 mcg/actuation HFA aerosol inhaler (Flovent HFA) metformin 500 mg tablet 1 tab PO BID 05/29/21 12/26/21 montelukast 10 mg tablet 1 tab PO BEDTIME 05/29/21 12/26/21 norethindrone (contraceptive) 0.35 0.35 mg PO DAILY 05/29/21 12/26/21 mg tablet (Deblitane) pantoprazole 40 mg tablet,delayed 1 tab PO BID@0630,1630 05/29/21 12/26/21 release verapamil 240 mg tablet,extended 1 tab PO BEDTIME 08/15/21 03/14/22 release albuterol sulfate 90 mcg/actuation 2 puff INHALATION Q4H PRN 06/15/21 12/26/21 aerosol inhaler (Ventolin HFA) ibuprofen 600 mg tablet 600 mg PO Q6H PRN 09/19/21 12/26/21 trazodone 150 mg tablet 150 mg PO BEDTIME PRN 11/05/21 12/26/21 clonazepam 0.5 mg tablet 0.5 mg PO QID PRN 11/11/21 12/26/21 lisinopril 5 mg tablet 1 tab PO DAILY 11/14/21 12/26/21 nicotine 21 mg/24 hr daily 1 patch TRANSDERMAL DAILY PRN 11/14/21 12/26/21 transdermal patch benztropine 1 mg tablet 1 mg PO QAM 12/26/21 12/26/21 chlorpromazine 25 mg tablet 75 mg PO BID PRN 12/26/21 12/26/21 chlorpromazine 25 mg tablet 75 mg PO QAM 12/26/21 12/26/21 Previous Rx's Medication Instructions Recorded hydroxyzine HCl 50 mg tablet 50 mg PO QID PRN 30 Days #120 tab 07/27/21 fluoxetine 20 mg capsule 40 mg PO DAILY 30 Days #60 cap 09/29/21 mirtazapine 7.5 mg tablet 7.5 mg PO BEDTIME MRX1 30 Days #60 10/18/21 tab prazosin 1 mg capsule 4 mg PO BEDTIME 30 Days #120 cap 10/18/21 Allergies Allergy/AdvReac Type Severity Reaction Status Date / Time Fish Containing Products Allergy Severe ANAPHYLAXIS Verified 11/14/21 08:35 codeine [Codeine] Allergy Unknown RASH Verified 11/14/21 08:35 Penicillins Allergy Unknown RASH Verified 11/14/21 08:35 prednisone [Prednisone] Allergy Unknown RASH Verified 11/14/21 08:35 Sulfa (Sulfonamide Allergy Unknown RASH Verified 11/14/21 08:35 Antibiotics) [Sulfa (Sulfonamides)] azithromycin [AZITHROMYCIN] AdvReac Severe RASH Verified 11/14/21 08:35 nicotine AdvReac Unknown HEART Verified 11/14/21 08:35 PALPITATION TO NICOTINE GUM Seafood Allergy Severe ANAPHYLAXIS Uncoded 11/05/21 21:13 From Geodon Allergy Unknown DYSURIA, Uncoded 11/05/21 21:13 RASH Review of Systems Review of Systems: Constitutional : No Weight loss, No Fever, No Chills, No Fatigue, No Malaise ENT/Mouth : No sore throat, No Rhinorrhea Eyes: No Eye Pain, No Swelling, No Redness Cardiovascular : No Chest Pain, No SOB, No Dyspnea on Exertion, No Orthopnea, No Edema, No Palpitations Respiratory : No Cough, No Sputum, No Wheezing Gastrointestinal : No Nausea, No Vomiting, No Diarrhea, No Constipation, No abdominal Pain, No Hematochezia, No Melena Genitourinary : No Dysuria, No Urinary Frequency, No Hematuria, Musculoskeletal : No joint pain, No Myalgias, No Joint Swelling Skin : No Skin Lesions, No rash Neuro : No Weakness, No Numbness, No Dizziness, No Headache Psych : No Anxiety/Panic, No Depression All other systems reviewed and are negative Yes all other systems are reviewed and are negative [facility] Past Medical History Attestation statement: The following information was validated with the patient. Source: old records reviewed and nursing notes reviewed Medical History Bronchitis Diabetes type 2, controlled GERD (gastroesophageal reflux disease) Hyperlipidemia MDD (major depressive disorder), recurrent episode, severe Mood disorder Overdose PTSD (post-traumatic stress disorder) Social History Social History 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: None 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 Other:: Patient lives in long-term. 4 in total live in long-term. Housing: Other Housing Other:: skilled nursing Do you presently have visiting nurse or other home services: No (Medication administered by long-term staff) Unable to assess alcohol history related to: Unknown Alcohol intake: never Patient Tobacco Use Status: Current everyday Tobacco user Tobacco use type: Cigarette Cigarette Packs Per Day: 1 Cigarettes Per Day: 20 Years Smoked: 20 e-Cigarette/Vaping Use: Never Used Second Hand Smoke Exposure: Yes Substance Use Type: Caffiene Advance Directives: No Advance Directives Information Provided: No Patient : No service: No Sexual orientation: Don't Know Physical Exam Vital Signs: Vital Signs: Last Vital Signs Temp 99 F 12/26/21 21:42 Pulse 91 12/26/21 22:25 Resp 17 12/26/21 22:25 BP 145/66 H 12/26/21 22:25 Pulse Ox 99 12/26/21 21:42 BMI result Body Mass Index 37.4 Patient tachycardic and hypertensive will repeat when patient is more calm. Appearance: Alert.? Oriented X3.? No acute distress.? Head: Normocephalic, atraumatic, no step-offs or deformities Eyes: Pupils equal, round and reactive to light.? ENT: Pharynx normal.? Neck: Normal inspection.? Neck supple.? CVS: Normal heart rate and rhythm.? Pulses normal.? Respiratory: No respiratory distress.? Breath sounds normal.? Abdomen: Soft and nontender.? Skin: Skin warm and dry.? Normal skin color.? Normal skin turgor.? Old superficial cuts on bilateral forearms. Extremities: No lower extremity edema.? No calf ttp. 5/5 strength to bilateral upper and lower extremities Back: No midline tenderness, no C-spine tenderness, full range of motion, no CVA tenderness bilaterally Neuro: Oriented X 3.? No motor deficit.? No sensory deficit. CN 2-12 intact Course Reevaluation(s) Reevaluation #1: Urine negative, urine clean. Urine toxicology negative. COVID negative Time: 23:06 Reevaluation #2: CBC at patient's baseline. No acute electrolyte abnormalities. At this time patient will be placed in physician observation to allow more time to be evaluated by the behavioral health team. At time observation is started patient, cooperative no acute distress. Will continue to monitor Time: 01:02 MDM - Psych MDM Narrative Medical decision making narrative: [id number] 46 yo f pmhx borderline personality disorder, depression, anxiety, bipolar 2 with melancholic features, PTSD, DM, GERD presents to the ED w/ visual and auditory hallucinations. PE benign Plan- labs, medical clearance . ? Medical Records Attestation: I reviewed the patient's medical records. Lab Data Attestation: I reviewed the patient's lab results. Result diagrams: 12/26/21 23:35 12/26/21 23:35 Labs: Lab Results 12/26/21 12/26/21 12/26/21 Range/Units 21:53 21:53 21:58 WBC (4.8-10.8) X10*3/uL RBC (4.20-5.50) X10*6/uL Hgb (12.0-16.0) g/dl Hct (37.0-47.0) % MCV (80.0-98.0) fL MCH (27.0-33.0) pg MCHC (31.0-35.0) g/dl RDW (11.0-16.0) % Plt Count (160-400) X10*3/uL MPV (9.4-12.3) fL Immature Gran % (Auto) (0.0-0.4) % Neut % (Auto) (45-73) % Lymph % (Auto) (20-40) % [place] % (Auto) (2-11) % Eos % (Auto) (0-4) % Baso % (Auto) (0-2) % Lymph # (Auto) (1.2-4.9) X10*3/uL [place] # (Auto) (0.1-1.2) X10*3/uL Eos # (Auto) (0.0-0.4) X10*3/uL Baso # (Auto) (0.0-0.2) X10*3/uL Abs Immat Gran (auto) (0.00-0.03) X10*3/uL Absolute Neuts (auto) (2.0-8.3) x10*3/uL Absolute Nucleated RBC (0.0-0.012) X10*3/uL Nucleated RBC % (auto) (0.0-0.2) /100WBC Sodium (135-145) mmol/L Potassium (3.3-5.1) mmol/L Chloride (96-108) mmol/L Carbon Dioxide (22-29) mmol/L Anion Gap (12-20) BUN (9-16) mg/dL Creatinine (0.5-1.4) mg/dL Estim Creat Clear Calc Estimated GFR Random Glucose (60-115) mg/dL Calcium (8.4-10.2) mg/dL Urine Color YELLOW Urine Appearance CLEAR Urine pH 6.0 (5.0-8.0) Ur Specific [place] <= 1.005 (1.005-1.025) Urine Protein NEG (NEG-TRACE) MG/DL Urine Glucose (UA) NEG (NEG) MG/DL Urine Ketones NEG (NEG) MG/DL Urine Blood NEG (NEG) Urine Nitrite NEG (NEG) Ur Leukocyte Esterase NEG (NEG) Urine Test NEGATIVE (NEGATIVE) Urine Opiates Screen Not Detected (Not Detect) Urine Fentanyl Screen Not Detected (Not Detect) Ur Barbiturates Screen Not Detected (Not Detect) Ur Phencyclidine Scrn Not Detected (Not Detect) Ur Amphetamines Screen Not Detected (Not Detect) U Benzodiazepines Scrn Not Detected (Not Detect) Urine Cocaine Screen Not Detected (Not Detect) U Marijuana (THC) Screen Not Detected (Not Detect) COVID-19 (NICK) (Negative) COVID-19 Clin Com 12/26/21 12/26/21 12/26/21 Range/Units 21:58 23:35 23:35 WBC 7.2 (4.8-10.8) X10*3/uL RBC 3.97 L (4.20-5.50) X10*6/uL Hgb 11.5 L (12.0-16.0) g/dl Hct 35.8 L (37.0-47.0) % MCV 90.2 (80.0-98.0) fL MCH 29.0 (27.0-33.0) pg MCHC 32.1 (31.0-35.0) g/dl RDW 12.6 (11.0-16.0) % Plt Count 270 (160-400) X10*3/uL MPV 9.7 (9.4-12.3) fL Immature Gran % (Auto) 0.4 (0.0-0.4) % Neut % (Auto) 61.8 (45-73) % Lymph % (Auto) 25.2 (20-40) % [place] % (Auto) 7.9 (2-11) % Eos % (Auto) 4.3 H (0-4) % Baso % (Auto) 0.4 (0-2) % Lymph # (Auto) 1.8 (1.2-4.9) X10*3/uL [place] # (Auto) 0.6 (0.1-1.2) X10*3/uL Eos # (Auto) 0.3 (0.0-0.4) X10*3/uL Baso # (Auto) 0.0 (0.0-0.2) X10*3/uL Abs Immat Gran (auto) 0.03 (0.00-0.03) X10*3/uL Absolute Neuts (auto) 4.4 (2.0-8.3) x10*3/uL Absolute Nucleated RBC 0.000 (0.0-0.012) X10*3/uL Nucleated RBC % (auto) 0.0 (0.0-0.2) /100WBC Sodium 140 (135-145) mmol/L Potassium 4.0 (3.3-5.1) mmol/L Chloride 107 (96-108) mmol/L Carbon Dioxide 25 (22-29) mmol/L Anion Gap 12 (12-20) BUN 9 (9-16) mg/dL Creatinine 0.73 (0.5-1.4) mg/dL Estim Creat Clear Calc 116.5 Estimated GFR > 60 Random Glucose 103 (60-115) mg/dL Calcium 8.6 (8.4-10.2) mg/dL Urine Color Urine Appearance Urine pH (5.0-8.0) Ur Specific [place] (1.005-1.025) Urine Protein (NEG-TRACE) MG/DL Urine Glucose (UA) (NEG) MG/DL Urine Ketones (NEG) MG/DL Urine Blood (NEG) Urine Nitrite (NEG) Ur Leukocyte Esterase (NEG) Urine Test (NEGATIVE) Urine Opiates Screen (Not Detect) Urine Fentanyl Screen (Not Detect) Ur Barbiturates Screen (Not Detect) Ur Phencyclidine Scrn (Not Detect) Ur Amphetamines Screen (Not Detect) U Benzodiazepines Scrn (Not Detect) Urine Cocaine Screen (Not Detect) U Marijuana (THC) Screen (Not Detect) COVID-19 (NICK) Negative (Negative) COVID-19 Clin Com See Note Critical Care Time Critical Care Time Critical Care Time: No Discharge Plan Discharge Clinical Impression: Auditory hallucination, Visual hallucination Patient Disposition: Still a Patient Prescriptions: No Action polyethylene glycol 3350 [Miralax] 17 gram Powder In Packet 17 g PO DAILY PRN (Reason: Constipation) 0RF metformin 500 mg tablet 1 tab PO BID 0RF atorvastatin 10 mg tablet 1 tab PO DAILY 0RF pantoprazole 40 mg tablet,delayed release (DR/EC) 1 tab PO BID@0630,1630 0RF verapamil 240 mg tablet extended release 1 tab PO BEDTIME 0RF montelukast 10 mg tablet 1 tab PO BEDTIME 0RF ferrous sulfate 325 mg (65 mg iron) tablet,delayed release (DR/EC) 1 tab PO DAILY 0RF Flovent HFA 110 mcg/actuation HFA aerosol inhaler 2 puff inhalation BID 0RF norethindrone (contraceptive) [Deblitane] 0.35 mg Tablet 0.35 mg PO DAILY 0RF albuterol sulfate [Ventolin HFA] 90 mcg/actuation HFA aerosol inhaler 2 puff inhalation Q4H PRN (Reason: Shortness Of Breath) 0RF trazodone 150 mg tablet 150 mg PO BEDTIME PRN (Reason: insomnia) 0RF clonazepam 0.5 mg tablet 0.5 mg PO QID PRN (Reason: anxiety/AH) 0RF Rx Instructions: may take within 1 hour of each other; max dose 1mg daily benztropine 1 mg tablet 1 mg PO QAM 0RF chlorpromazine 25 mg Tablet 75 mg PO QAM 0RF chlorpromazine 25 mg tablet 75 mg PO BID PRN (Reason: agitation) 0RF hydroxyzine HCl 50 mg Tablet 50 mg PO QID PRN (Reason: Anxiety) 30 Days Qty: 120 0RF ibuprofen 600 mg Tablet 600 mg PO Q6H PRN (Reason: Mild Pain (Scale Score 1-4)) 0RF fluoxetine 20 mg Capsule 40 mg PO DAILY 30 Days Qty: 60 0RF prazosin 1 mg Capsule 4 mg PO BEDTIME 30 Days Qty: 120 0RF Protocol: Hold for SBP< HOLD for SBP < : 90 mirtazapine 7.5 mg Tablet 7.5 mg PO BEDTIME MRX1 30 Days Qty: 60 0RF lisinopril 5 mg tablet 1 tab PO DAILY 0RF nicotine 21 mg/24 hr Patch 24 Hour 1 patch TRANSDERMAL DAILY PRN (Reason: Nicotine Cravings) 0RF
[2021-12-26 22:25] VITALS: BP 145/66; PULSE 91; RESP 17
[2021-12-26 22:27] LABS: Amphetamine Screen Urine Not Detected (Not Detect); Barbiturates, Urine Not Detected (Not Detect); Benzodiazepines Screen Urine Not Detected (Not Detect); Cannabinoid Screen Urine Not Detected (Not Detect); Cocaine Screen Urine Not Detected (Not Detect); Fentanyl, urine Not Detected (Not Detect); Opiate Screen Urine Not Detected (Not Detect); Phencyclidine Screen Urine Not Detected (Not Detect)
[2021-12-26 22:37] LABS: COVID-19 Test Negative (Negative)
[2021-12-26 23:40] LABS: MANUAL DIFF FLAG NO
[2021-12-26 23:44] LABS: Basophils Percent Auto 0.4 % (0-2); Eosinophils Absolute Auto 0.3 X10*3/uL (0.0-0.4); Eosinophils Percent Auto 4.3 % (0-4); Hematocrit 35.8 % (37.0-47.0); Hemoglobin 11.5 g/dl (12.0-16.0); Imm Gran Abs Auto 0.03 X10*3/uL (0.00-0.03); Imm Gran Pct Auto 0.4 % (0.0-0.4); Lymphocytes Absolute Auto 1.8 X10*3/uL (1.2-4.9); Lymphocytes Percent Auto 25.2 % (20-40); Mean Corpuscular HGB Conc 32.1 g/dl (31.0-35.0); Mean Corpuscular Volume 90.2 fL (80.0-98.0); Mean Platelet Volume 9.7 fL (9.4-12.3); Monocytes Absolute Auto 0.6 X10*3/uL (0.1-1.2); Monocytes Percent Auto 7.9 % (2-11); Neutrophils Absolute Auto 4.4 x10*3/uL (2.0-8.3); Neutrophils Percent Auto 61.8 % (45-73); Platelet Count 270 X10*3/uL (160-400); Red Blood Count 3.97 X10*6/uL (4.20-5.50); Red Cell Distribution Width 12.6 % (11.0-16.0); White Blood Count 7.2 X10*3/uL (4.8-10.8)
[2021-12-26 23:58] LABS: Anion Gap 12 (12-20); Blood Urea Nitrogen 9 mg/dL (9-16); Calcium 8.6 mg/dL (8.4-10.2); Carbon Dioxide 25 mmol/L (22-29); Chloride 107 mmol/L (96-108); Creatinine Clr Calc Pharmacy 116.5; Estimated Glomerular Filt Rate > 60; Glucose Random 103 mg/dL (60-115); Sodium 140 mmol/L (135-145)
--- NOTE | 2021-12-27 06:10 | PC.NURSE ---
Patient slept through the night, no distress observed/reported, [facility] referral completed/confirmed, however care team per patient's care plan will assess the patient in the morning, med rec completed pending provider's approval, behavior appropriate and non concerning, will continue to monitor
[2021-12-27 06:21] VITALS: BP 120/68; PULSE 87; RESP 17; TEMP 36.6; O2SAT 94
--- NOTE | 2021-12-27 07:09 | PC.NURSE ---
patient appears to remain at rest at present respirations are even and unlabored, patient appears in no distress
[2021-12-27] MEDS: chlorproMAZINE HCl 25 MG TABLET 75 MG PO (09:59)
[2021-12-27] MEDS: Benztropine Mesylate 1 MG TABLET PO (09:59)
[2021-12-27] MEDS: lisinopriL 5 MG TABLET PO (09:59)
[2021-12-27] MEDS: FLUoxetine HCl 20 MG CAPSULE 40 MG PO (09:59)
[2021-12-27] MEDS: metFORMIN HCl 500 MG TABLET PO (10:00)
[2021-12-27] MEDS: Atorvastatin Calcium 10 MG TABLET PO (10:00)
--- NOTE | 2021-12-27 15:00 | MHC.CARE ---
LATE ENTRY Met with patient at 9:00 am, she requested discharge home and stated she dissociated last night but feels better now. She was open to processing the events of last night and realized that she might have been triggered while working on her Life Story and re-read the entry when she was 9 years-old her cousin committed suicide. Patient engaged in safety planning, document was given to her prior to discharge. Call to the alf, spoke to Sumeet, there are no concerns about her returning home. Providers updated Juan Daniel picked up patient at 1030
== END 2021-12-27 10:02 | disposition home or self-care (01) ==
PROVIDERS: Physician Assistant; Emergency Provider Internal Medicine
DX: R44.0 Auditory hallucinations (principal); R44.1 Visual hallucinations; F60.3 Borderline personality disorder; F41.9 Anxiety disorder, unspecified; F31.9 Bipolar disorder, unspecified; F43.10 Post-traumatic stress disorder, unspecified; E11.9 Type 2 diabetes mellitus without complications; F17.200 Nicotine dependence, unspecified, uncomplicated; Z79.899 Other long term (current) drug therapy; Z20.822 Contact with and (suspected) exposure to COVID-19
CPT/HCPCS: 36415; 80048; 80307; 81003; 81025; 85025; 87635; 99284; 99285

== ENCOUNTER 2021-12-28 18:28 | Emergency (ER) | payer MEDICARE, MEDICAID, SELFPAY ==
--- NOTE | 2021-12-28 18:34 | ED.PSYCH ---
HPI - Psych General Chief Complaint: Psychiatric Symptoms Stated Complaint: SI, auditory hallucinations Time Seen by Provider: 12/28/21 18:34 Source: patient Mode of arrival: ambulatory Limitations: no limitations History of Present Illness HPI Narrative: 46-year-old female past medical history borderline personality disorder, depression, anxiety, bipolar 2 with melancholic features, PTSD, DM, GERD presents to the ED with?auditory and visual hallucinations and SI X1 day. Patient reports that she is seeing blood, and figures. She tells me that she is seeing her aunt again tells me that this started today. correction staff called 911. Denies tactile hallucinations. She denies drug use, alcohol use she tells me she is a current daily smoker.? Patient denies any medical complaints at this time.? She denies chest pain, shortness of breath, fevers, chills, nausea, vomiting, diarrhea, abdominal pain.?Taking all meds as prescribed. Denies HI. MD complaint: suicidal ideation and hallucinations Onset (ago): day(s) (1) Duration: constant History of same: Yes Relieving factors: none Exacerbating factors: none Associated psychiatric symptoms: none Associated symptoms: denies other symptoms Treatments prior to arrival: none If self harm: admits thoughts of self harm Related Data Home Medications Medication Instructions Recorded Confirmed polyethylene glycol 3350 17 gram 17 g PO DAILY PRN 02/12/21 12/28/21 oral powder packet (Miralax) atorvastatin 10 mg tablet 1 tab PO DAILY 05/29/21 12/28/21 ferrous sulfate 325 mg (65 mg 1 tab PO DAILY 05/29/21 12/28/21 iron) tablet,delayed release fluticasone propionate 110 2 puff INHALATION BID 05/29/21 12/28/21 mcg/actuation HFA aerosol inhaler (Flovent HFA) metformin 500 mg tablet 1 tab PO BID 05/29/21 12/28/21 montelukast 10 mg tablet 1 tab PO BEDTIME 05/29/21 12/28/21 norethindrone (contraceptive) 0.35 0.35 mg PO DAILY 05/29/21 12/28/21 mg tablet (Deblitane) pantoprazole 40 mg tablet,delayed 1 tab PO BID@0630,1630 05/29/21 12/28/21 release verapamil 240 mg tablet,extended 1 tab PO BEDTIME 05/29/21 12/28/21 release albuterol sulfate 90 mcg/actuation 2 puff INHALATION Q4H PRN 06/15/21 12/28/21 aerosol inhaler (Ventolin HFA) ibuprofen 600 mg tablet 600 mg PO Q6H PRN 09/19/21 12/28/21 trazodone 150 mg tablet 150 mg PO BEDTIME PRN 11/05/21 12/28/21 clonazepam 0.5 mg tablet 0.5 mg PO QID PRN 11/11/21 12/28/21 lisinopril 5 mg tablet 1 tab PO DAILY 11/14/21 12/28/21 nicotine 21 mg/24 hr daily 1 patch TRANSDERMAL DAILY PRN 11/14/21 12/28/21 transdermal patch benztropine 1 mg tablet 1 mg PO QAM 12/26/21 12/28/21 chlorpromazine 25 mg tablet 75 mg PO BID PRN 12/26/21 12/28/21 chlorpromazine 25 mg tablet 75 mg PO QAM 12/26/21 12/28/21 Previous Rx's Medication Instructions Recorded hydroxyzine HCl 50 mg tablet 50 mg PO QID PRN 30 Days #120 tab 07/27/21 fluoxetine 20 mg capsule 40 mg PO DAILY 30 Days #60 cap 09/29/21 mirtazapine 7.5 mg tablet 7.5 mg PO BEDTIME MRX1 30 Days #60 10/18/21 tab prazosin 1 mg capsule 4 mg PO BEDTIME 30 Days #120 cap 10/18/21 Allergies Allergy/AdvReac Type Severity Reaction Status Date / Time Fish Containing Products Allergy Severe ANAPHYLAXIS Verified 11/14/21 08:35 codeine [Codeine] Allergy Unknown RASH Verified 11/14/21 08:35 Penicillins Allergy Unknown RASH Verified 11/14/21 08:35 prednisone [Prednisone] Allergy Unknown RASH Verified 11/14/21 08:35 Sulfa (Sulfonamide Allergy Unknown RASH Verified 11/14/21 08:35 Antibiotics) [Sulfa (Sulfonamides)] azithromycin [AZITHROMYCIN] AdvReac Severe RASH Verified 11/14/21 08:35 nicotine AdvReac Unknown HEART Verified 11/14/21 08:35 PALPITATION TO NICOTINE GUM Seafood Allergy Severe ANAPHYLAXIS Uncoded 11/05/21 21:13 From Geodon Allergy Unknown DYSURIA, Uncoded 11/05/21 21:13 RASH Review of Systems Review of Systems: Constitutional : No Weight loss, No Fever, No Chills, No Fatigue, No Malaise ENT/Mouth : No sore throat, No Rhinorrhea Eyes: No Eye Pain, No Swelling, No Redness Cardiovascular : No Chest Pain, No SOB, No Dyspnea on Exertion, No Orthopnea, No Edema, No Palpitations Respiratory : No Cough, No Sputum, No Wheezing Gastrointestinal : No Nausea, No Vomiting, No Diarrhea, No Constipation, No abdominal Pain, No Hematochezia, No Melena Genitourinary : No Dysuria, No Urinary Frequency, No Hematuria, Musculoskeletal : No joint pain, No Myalgias, No Joint Swelling Skin : No Skin Lesions, No rash Neuro : No Weakness, No Numbness, No Dizziness, No Headache Psych : No Anxiety/Panic, No Depression All other systems reviewed and are negative Yes all other systems are reviewed and are negative PMFSH Past Medical History Attestation statement: The following information was validated with the patient. Source: old records reviewed and nursing notes reviewed Medical History Bronchitis Diabetes type 2, controlled GERD (gastroesophageal reflux disease) Hyperlipidemia MDD (major depressive disorder), recurrent episode, severe Mood disorder Overdose PTSD (post-traumatic stress disorder) Social History Social History 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: None 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 Other:: Patient lives in skilled nursing. 4 in total live in skilled nursing. Housing: Other Housing Other:: correction Do you presently have visiting nurse or other home services: No (Medication administered by skilled nursing staff) Unable to assess alcohol history related to: Unknown Alcohol intake: never Patient Tobacco Use Status: Current everyday Tobacco user Tobacco use type: Cigarette Cigarette Packs Per Day: 1 Cigarettes Per Day: 20 Years Smoked: 20 e-Cigarette/Vaping Use: Never Used Second Hand Smoke Exposure: Yes Substance Use Type: Caffiene Advance Directives: No Advance Directives Information Provided: No Patient : No service: No Sexual orientation: Don't Know Physical Exam Vital Signs: Vital Signs: Last Vital Signs Temp 98.8 F 12/28/21 18:49 Pulse 100 12/28/21 18:49 Resp 18 12/28/21 18:49 BP 140/81 H 12/28/21 18:49 Pulse Ox 99 12/28/21 18:49 BMI result Body Mass Index 39.1 Appearance: Alert.? Oriented X3.? No acute distress.? Head: Normocephalic, atraumatic, no step-offs or deformities Eyes: Pupils equal, round and reactive to light.? ENT: Pharynx normal.? Neck: Normal inspection.? Neck supple.? CVS: Normal heart rate and rhythm.? Pulses normal.? Respiratory: No respiratory distress.? Breath sounds normal.? Abdomen: Soft and nontender.? Skin: Skin warm and dry.? Normal skin color.? Normal skin turgor.? Extremities: No lower extremity edema.? No calf ttp. 5/5 strength to bilateral upper and lower extremities Back: No midline tenderness, no C-spine tenderness, full range of motion, no CVA tenderness bilaterally Neuro: Oriented X 3.? No motor deficit.? No sensory deficit. CN 2-12 intact Course Reevaluation(s) Reevaluation #1: Patient spoke to care team. She says she is feeling much better and she is excited to go back to the skilled nursing. She reports that she has yolk on Sunday which she is looking forward to. Patient appears much better than she did when she arrived. Patient's CBC within normal limits. No acute electrolyte abnormalities. UA clean. Urine toxicology negative. COVID negative. At this time patient will be discharged home with PCP follow-up and follow-up with her outpatient therapist. Time: 21:26 MDM - Psych MDM Narrative Medical decision making narrative: 183 46 yo f pmhx borderline personality disorder, depression, anxiety, bipolar 2 with melancholic features, PTSD, DM, GERD presents to the ED w/ SI , visual and auditory hallucinations. PE benign Plan- labs, medical clearance . ? Medical Records Attestation: I reviewed the patient's medical records. Lab Data Attestation: I reviewed the patient's lab results. Result diagrams: 12/28/21 19:43 12/28/21 19:43 Labs: Lab Results 12/28/21 12/28/21 12/28/21 Range/Units 19:43 19:43 19:43 WBC 7.4 (4.8-10.8) X10*3/uL RBC 4.15 L (4.20-5.50) X10*6/uL Hgb 12.0 (12.0-16.0) g/dl Hct 37.1 (37.0-47.0) % MCV 89.4 (80.0-98.0) fL MCH 28.9 (27.0-33.0) pg MCHC 32.3 (31.0-35.0) g/dl RDW 13.0 (11.0-16.0) % Plt Count 292 (160-400) X10*3/uL MPV 9.7 (9.4-12.3) fL Immature Gran % (Auto) 0.4 (0.0-0.4) % Neut % (Auto) 66.9 (45-73) % Lymph % (Auto) 22.0 (20-40) % [place] % (Auto) 7.7 (2-11) % Eos % (Auto) 2.6 (0-4) % Baso % (Auto) 0.4 (0-2) % Lymph # (Auto) 1.6 (1.2-4.9) X10*3/uL [place] # (Auto) 0.6 (0.1-1.2) X10*3/uL Eos # (Auto) 0.2 (0.0-0.4) X10*3/uL Baso # (Auto) 0.0 (0.0-0.2) X10*3/uL Abs Immat Gran (auto) 0.03 (0.00-0.03) X10*3/uL Absolute Neuts (auto) 5.0 (2.0-8.3) x10*3/uL Absolute Nucleated RBC 0.000 (0.0-0.012) X10*3/uL Nucleated RBC % (auto) 0.0 (0.0-0.2) /100WBC Sodium 137 (135-145) mmol/L Potassium 4.4 (3.3-5.1) mmol/L Chloride 103 (96-108) mmol/L Carbon Dioxide 21 L (22-29) mmol/L Anion Gap 17 (12-20) BUN 12 (9-16) mg/dL Creatinine 0.79 (0.5-1.4) mg/dL Estim Creat Clear Calc 114.2 Estimated GFR > 60 Random Glucose 115 (60-115) mg/dL Calcium 9.9 D (8.4-10.2) mg/dL Magnesium 1.7 (1.6-2.6) mg/dL Urine Color Urine Appearance Urine pH (5.0-8.0) Ur Specific [place] (1.005-1.025) Urine Protein (NEG-TRACE) MG/DL Urine Glucose (UA) (NEG) MG/DL Urine Ketones (NEG) MG/DL Urine Blood (NEG) Urine Nitrite (NEG) Ur Leukocyte Esterase (NEG) Ethyl Alcohol mg/dL COVID-19 (NICK) Negative (Negative) COVID-19 Clin Com See Note 12/28/21 12/28/21 Range/Units 19:43 19:43 WBC (4.8-10.8) X10*3/uL RBC (4.20-5.50) X10*6/uL Hgb (12.0-16.0) g/dl Hct (37.0-47.0) % MCV (80.0-98.0) fL MCH (27.0-33.0) pg MCHC (31.0-35.0) g/dl RDW (11.0-16.0) % Plt Count (160-400) X10*3/uL MPV (9.4-12.3) fL Immature Gran % (Auto) (0.0-0.4) % Neut % (Auto) (45-73) % Lymph % (Auto) (20-40) % [place] % (Auto) (2-11) % Eos % (Auto) (0-4) % Baso % (Auto) (0-2) % Lymph # (Auto) (1.2-4.9) X10*3/uL [place] # (Auto) (0.1-1.2) X10*3/uL Eos # (Auto) (0.0-0.4) X10*3/uL Baso # (Auto) (0.0-0.2) X10*3/uL Abs Immat Gran (auto) (0.00-0.03) X10*3/uL Absolute Neuts (auto) (2.0-8.3) x10*3/uL Absolute Nucleated RBC (0.0-0.012) X10*3/uL Nucleated RBC % (auto) (0.0-0.2) /100WBC Sodium (135-145) mmol/L Potassium (3.3-5.1) mmol/L Chloride (96-108) mmol/L Carbon Dioxide (22-29) mmol/L Anion Gap (12-20) BUN (9-16) mg/dL Creatinine (0.5-1.4) mg/dL Estim Creat Clear Calc Estimated GFR Random Glucose (60-115) mg/dL Calcium (8.4-10.2) mg/dL Magnesium (1.6-2.6) mg/dL Urine Color YELLOW Urine Appearance CLEAR Urine pH 6.0 (5.0-8.0) Ur Specific [place] <= 1.005 (1.005-1.025) Urine Protein NEG (NEG-TRACE) MG/DL Urine Glucose (UA) NEG (NEG) MG/DL Urine Ketones NEG (NEG) MG/DL Urine Blood NEG (NEG) Urine Nitrite NEG (NEG) Ur Leukocyte Esterase NEG (NEG) Ethyl Alcohol < 10 mg/dL COVID-19 (NICK) (Negative) COVID-19 Clin Com Critical Care Time Critical Care Time Critical Care Time: No Discharge Plan Discharge Clinical Impression: Hallucinations Patient Disposition: Home, Self-Care Instructions: Hallucinations (ED) Additional Instructions: Take your medications as prescribed. If you were prescribed antibiotics today, it is important that you take your medication to their entirety, do not skip any doses, do not finish them early. Follow-up with your primary care provider this week. Return to the emergency department with new or worsening symptoms. Such as fevers, chills, chest pain, shortness of breath, nausea, vomiting, dizziness, headache, vision changes, lethargy In case of emergency call 911 Prescriptions: No Action polyethylene glycol 3350 [Miralax] 17 gram Powder In Packet 17 g PO DAILY PRN (Reason: Constipation) 0RF metformin 500 mg tablet 1 tab PO BID 0RF atorvastatin 10 mg tablet 1 tab PO DAILY 0RF pantoprazole 40 mg tablet,delayed release (DR/EC) 1 tab PO BID@0630,1630 0RF verapamil 240 mg tablet extended release 1 tab PO BEDTIME 0RF montelukast 10 mg tablet 1 tab PO BEDTIME 0RF ferrous sulfate 325 mg (65 mg iron) tablet,delayed release (DR/EC) 1 tab PO DAILY 0RF Flovent HFA 110 mcg/actuation HFA aerosol inhaler 2 puff inhalation BID 0RF norethindrone (contraceptive) [Deblitane] 0.35 mg Tablet 0.35 mg PO DAILY 0RF albuterol sulfate [Ventolin HFA] 90 mcg/actuation HFA aerosol inhaler 2 puff inhalation Q4H PRN (Reason: Shortness Of Breath) 0RF trazodone 150 mg tablet 150 mg PO BEDTIME PRN (Reason: insomnia) 0RF clonazepam 0.5 mg tablet 0.5 mg PO QID PRN (Reason: anxiety/AH) 0RF Rx Instructions: may take within 1 hour of each other; max dose 1mg daily benztropine 1 mg tablet 1 mg PO QAM 0RF chlorpromazine 25 mg Tablet 75 mg PO QAM 0RF chlorpromazine 25 mg tablet 75 mg PO BID PRN (Reason: agitation) 0RF hydroxyzine HCl 50 mg Tablet 50 mg PO QID PRN (Reason: Anxiety) 30 Days Qty: 120 0RF ibuprofen 600 mg Tablet 600 mg PO Q6H PRN (Reason: Mild Pain (Scale Score 1-4)) 0RF fluoxetine 20 mg Capsule 40 mg PO DAILY 30 Days Qty: 60 0RF prazosin 1 mg Capsule 4 mg PO BEDTIME 30 Days Qty: 120 0RF Protocol: Hold for SBP< HOLD for SBP < : 90 mirtazapine 7.5 mg Tablet 7.5 mg PO BEDTIME MRX1 30 Days Qty: 60 0RF lisinopril 5 mg tablet 1 tab PO DAILY 0RF nicotine 21 mg/24 hr Patch 24 Hour 1 patch TRANSDERMAL DAILY PRN (Reason: Nicotine Cravings) 0RF Referrals: Maribel Marquez NP [Primary Care Provider] - 2 days Interventions: ED Discharge Assessment Last Done: 12/28/21 20:56 Discharge Date/Time: 12/28/21 21:06
[2021-12-28 18:49] VITALS: BP 138/92; BP 140/81; PULSE 100; PULSE 90; RESP 18; TEMP 37.1; O2SAT 99; BMI 39.1
[2021-12-28 19:50] LABS: MANUAL DIFF FLAG NO
[2021-12-28 19:52] LABS: Appearance Urine CLEAR; Color Urine YELLOW; Glucose Urine UA NEG (NEG); Leukocyte Esterase Urine NEG (NEG); Nitrite Urine NEG (NEG); Specific Gravity - Urine <= 1.005 (1.005-1.025); Urine Blood NEG (NEG); Urine Ketones NEG (NEG); Urine Protein NEG (NEG-TRACE)
[2021-12-28 19:54] LABS: Basophils Percent Auto 0.4 % (0-2); Eosinophils Absolute Auto 0.2 X10*3/uL (0.0-0.4); Eosinophils Percent Auto 2.6 % (0-4); Hematocrit 37.1 % (37.0-47.0); Imm Gran Abs Auto 0.03 X10*3/uL (0.00-0.03); Imm Gran Pct Auto 0.4 % (0.0-0.4); Lymphocytes Absolute Auto 1.6 X10*3/uL (1.2-4.9); Mean Corpuscular HGB Conc 32.3 g/dl (31.0-35.0); Mean Corpuscular Hemoglobin 28.9 pg (27.0-33.0); Mean Corpuscular Volume 89.4 fL (80.0-98.0); Mean Platelet Volume 9.7 fL (9.4-12.3); Monocytes Absolute Auto 0.6 X10*3/uL (0.1-1.2); Monocytes Percent Auto 7.7 % (2-11); Neutrophils Percent Auto 66.9 % (45-73); Platelet Count 292 X10*3/uL (160-400); Red Blood Count 4.15 X10*6/uL (4.20-5.50); White Blood Count 7.4 X10*3/uL (4.8-10.8)
[2021-12-28 20:06] LABS: COVID-19 Test Negative (Negative)
[2021-12-28 21:04] LABS: Ethanol < 10 mg/dL
--- NOTE | 2021-12-28 21:12 | MHC.CARE ---
Pt seen by the CARE team. Pt endorsed AH and images of her family member that committed suicide in front of her. Today is the anniversary. Pt reports she is looking forward to yoga class and wants to return back to her detention. Pt contracts for safety and denies SI/HI. Pt was sent back home in a [employer].
[2021-12-28 21:13] LABS: Anion Gap 17 (12-20); Blood Urea Nitrogen 12 mg/dL (9-16); Calcium 9.9 mg/dL (8.4-10.2); Carbon Dioxide 21 mmol/L (22-29); Chloride 103 mmol/L (96-108); Creatinine Clr Calc Pharmacy 114.2; Estimated Glomerular Filt Rate > 60; Glucose Random 115 mg/dL (60-115); Magnesium 1.7 mg/dL (1.6-2.6); Potassium 4.4 mmol/L (3.3-5.1); Sodium 137 mmol/L (135-145)
[2021-12-28 22:38] LABS: Amphetamine Screen Urine Not Detected (Not Detect); Barbiturates, Urine Not Detected (Not Detect); Benzodiazepines Screen Urine Not Detected (Not Detect); Cannabinoid Screen Urine Not Detected (Not Detect); Cocaine Screen Urine Not Detected (Not Detect); Fentanyl, urine Not Detected (Not Detect); Opiate Screen Urine Not Detected (Not Detect); Phencyclidine Screen Urine Not Detected (Not Detect)
== END 2021-12-28 21:06 | disposition home or self-care (01) ==
PROVIDERS: Physician Assistant; Emergency Provider Emergency Medicine; PCP Nurse Practitioner Family
DX: F33.1 Major depressive disorder, recurrent, moderate (principal); R45.851 Suicidal ideations; F17.210 Nicotine dependence, cigarettes, uncomplicated; Z20.822 Contact with and (suspected) exposure to COVID-19; Z71.6 Tobacco abuse counseling; Z79.899 Other long term (current) drug therapy
CPT/HCPCS: 80048; 80307; 81003; 82077; 83735; 85025; 87635; 99283; 99284

== ENCOUNTER 2021-12-29 01:15 | Emergency (ER) | payer MEDICARE, MEDICAID, SELFPAY ==
[2021-12-29 01:20] VITALS: BP 97/54; PULSE 98; RESP 20; TEMP 36.6; O2SAT 94; BMI 37.8
--- NOTE | 2021-12-29 01:25 | ED_ITS ---
HPI - Psych General Chief Complaint: Psychiatric Symptoms Stated Complaint: section 12 SI Time Seen by Provider: 12/29/21 01:25 Source: patient Mode of arrival: EMS Limitations: no limitations History of Present Illness HPI Narrative: Patient with significant past medical history of personality disorder, depression, depressed anxiety, bipolar disorder just seen and discharged from the ER came back for increased suicidal trying to cut herself with razor blade had superficial abrasions on her lower abdomen feels more depressed and suicidal section 12 by HPD Related Data Home Medications Medication Instructions Recorded Confirmed polyethylene glycol 3350 17 gram 17 g PO DAILY PRN 02/12/21 12/29/21 oral powder packet (Miralax) atorvastatin 10 mg tablet 1 tab PO DAILY 05/29/21 12/29/21 ferrous sulfate 325 mg (65 mg 1 tab PO DAILY 05/29/21 12/29/21 iron) tablet,delayed release fluticasone propionate 110 2 puff INHALATION BID 05/29/21 12/29/21 mcg/actuation HFA aerosol inhaler (Flovent HFA) metformin 500 mg tablet 1 tab PO BID 05/29/21 12/29/21 montelukast 10 mg tablet 1 tab PO BEDTIME 05/29/21 12/29/21 norethindrone (contraceptive) 0.35 0.35 mg PO DAILY 05/29/21 12/29/21 mg tablet (Deblitane) pantoprazole 40 mg tablet,delayed 1 tab PO BID@0630,1630 05/29/21 12/29/21 release verapamil 240 mg tablet,extended 1 tab PO BEDTIME 05/29/21 12/29/21 release albuterol sulfate 90 mcg/actuation 2 puff INHALATION Q4H PRN 06/15/21 12/29/21 aerosol inhaler (Ventolin HFA) ibuprofen 600 mg tablet 600 mg PO Q6H PRN 09/19/21 12/29/21 trazodone 150 mg tablet 150 mg PO BEDTIME PRN 11/05/21 12/29/21 clonazepam 0.5 mg tablet 0.5 mg PO QID PRN 11/11/21 12/29/21 lisinopril 5 mg tablet 1 tab PO DAILY 11/14/21 12/29/21 nicotine 21 mg/24 hr daily 1 patch TRANSDERMAL DAILY PRN 11/14/21 12/29/21 transdermal patch benztropine 1 mg tablet 1 mg PO QAM 12/26/21 12/29/21 chlorpromazine 25 mg tablet 75 mg PO BID PRN 12/26/21 12/29/21 chlorpromazine 25 mg tablet 75 mg PO QAM 12/26/21 12/29/21 Previous Rx's Medication Instructions Recorded hydroxyzine HCl 50 mg tablet 50 mg PO QID PRN 30 Days #120 tab 07/27/21 fluoxetine 20 mg capsule 40 mg PO DAILY 30 Days #60 cap 09/29/21 mirtazapine 7.5 mg tablet 7.5 mg PO BEDTIME MRX1 30 Days #60 10/18/21 tab prazosin 1 mg capsule 4 mg PO BEDTIME 30 Days #120 cap 10/18/21 Allergies Allergy/AdvReac Type Severity Reaction Status Date / Time Fish Containing Products Allergy Severe ANAPHYLAXIS Verified 11/14/21 08:35 codeine [Codeine] Allergy Unknown RASH Verified 11/14/21 08:35 Penicillins Allergy Unknown RASH Verified 11/14/21 08:35 prednisone [Prednisone] Allergy Unknown RASH Verified 11/14/21 08:35 Sulfa (Sulfonamide Allergy Unknown RASH Verified 11/14/21 08:35 Antibiotics) [Sulfa (Sulfonamides)] azithromycin [AZITHROMYCIN] AdvReac Severe RASH Verified 11/14/21 08:35 nicotine AdvReac Unknown HEART Verified 11/14/21 08:35 PALPITATION TO NICOTINE GUM Seafood Allergy Severe ANAPHYLAXIS Uncoded 11/05/21 21:13 From Geodon Allergy Unknown DYSURIA, Uncoded 11/05/21 21:13 RASH Review of Systems Review of Systems: Yes all other systems are reviewed and are negative [facility] Past Medical History Medical History Bronchitis Diabetes type 2, controlled GERD (gastroesophageal reflux disease) Hyperlipidemia MDD (major depressive disorder), recurrent episode, severe Mood disorder Overdose PTSD (post-traumatic stress disorder) Social History Social History 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: None 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 Other:: Patient lives in prison. 4 in total live in prison. Housing: Other Housing Other:: correction Do you presently have visiting nurse or other home services: No (Medication administered by prison staff) Unable to assess alcohol history related to: Unknown Alcohol intake: never Patient Tobacco Use Status: Current everyday Tobacco user Tobacco use type: Cigarette Cigarette Packs Per Day: 1 Cigarettes Per Day: 20 Years Smoked: 20 e-Cigarette/Vaping Use: Never Used Second Hand Smoke Exposure: Yes Substance Use Type: Caffiene Advance Directives: No Advance Directives Information Provided: Yes Patient : No service: No Sexual orientation: Don't Know Physical Exam Vital Signs: Vital Signs: Last Vital Signs Temp 98.1 F 12/29/21 06:10 Pulse 86 12/29/21 06:10 Resp 17 12/29/21 06:10 BP 154/64 H 12/29/21 06:10 Pulse Ox 92 12/29/21 06:10 BMI result Body Mass Index 37.8 Appearance: Alert. Oriented X3. No acute distress. Eyes: PERRLA, No Nystagmus ENT: Pharynx normal. Oral Mucosa moist Neck: Normal inspection. Neck supple. CVS: Normal heart rate and rhythm. Pulses normal. Respiratory: No respiratory distress. Equal air entry bilateral, no wheezing/rales/rhonchi Abdomen: Soft and nontender. Bowel sounds are present, no mass palpable, no CVA tenderness superficial abrasion month from razor blade in lower abdomen Skin: Skin warm and dry. Normal skin color. Normal skin turgor. Extremities: No lower extremity edema. No calf tenderness psych: Feel depressed and suicidal sometimes with no current thoughts, no hallucination/ delusion Neuro: Oriented X 3. No motor deficit. No sensory deficit.No cerebellar signs , cranial nerves II-XII intact MDM - Psych Lab Data Labs: Lab Results 12/29/21 12/29/21 Range/Units 01:53 01:53 Urine Opiates Screen Not Detected (Not Detect) Urine Fentanyl Screen Not Detected (Not Detect) Ur Barbiturates Screen Not Detected (Not Detect) Ur Phencyclidine Scrn Not Detected (Not Detect) Ur Amphetamines Screen Not Detected (Not Detect) U Benzodiazepines Scrn Not Detected (Not Detect) Urine Cocaine Screen Not Detected (Not Detect) U Marijuana (THC) Screen Not Detected (Not Detect) COVID-19 (NICK) Negative (Negative) COVID-19 Clin Com See Note Discharge Plan Discharge Clinical Impression: Depression, Suicidal ideation Patient Disposition: Still a Patient Prescriptions: No Action polyethylene glycol 3350 [Miralax] 17 gram Powder In Packet 17 g PO DAILY PRN (Reason: Constipation) 0RF metformin 500 mg tablet 1 tab PO BID 0RF atorvastatin 10 mg tablet 1 tab PO DAILY 0RF pantoprazole 40 mg tablet,delayed release (DR/EC) 1 tab PO BID@0630,1630 0RF verapamil 240 mg tablet extended release 1 tab PO BEDTIME 0RF montelukast 10 mg tablet 1 tab PO BEDTIME 0RF ferrous sulfate 325 mg (65 mg iron) tablet,delayed release (DR/EC) 1 tab PO DAILY 0RF Flovent HFA 110 mcg/actuation HFA aerosol inhaler 2 puff inhalation BID 0RF norethindrone (contraceptive) [Deblitane] 0.35 mg Tablet 0.35 mg PO DAILY 0RF albuterol sulfate [Ventolin HFA] 90 mcg/actuation HFA aerosol inhaler 2 puff inhalation Q4H PRN (Reason: Shortness Of Breath) 0RF trazodone 150 mg tablet 150 mg PO BEDTIME PRN (Reason: insomnia) 0RF clonazepam 0.5 mg tablet 0.5 mg PO QID PRN (Reason: anxiety/AH) 0RF Rx Instructions: may take within 1 hour of each other; max dose 1mg daily benztropine 1 mg tablet 1 mg PO QAM 0RF chlorpromazine 25 mg Tablet 75 mg PO QAM 0RF chlorpromazine 25 mg tablet 75 mg PO BID PRN (Reason: agitation) 0RF hydroxyzine HCl 50 mg Tablet 50 mg PO QID PRN (Reason: Anxiety) 30 Days Qty: 120 0RF ibuprofen 600 mg Tablet 600 mg PO Q6H PRN (Reason: Mild Pain (Scale Score 1-4)) 0RF fluoxetine 20 mg Capsule 40 mg PO DAILY 30 Days Qty: 60 0RF prazosin 1 mg Capsule 4 mg PO BEDTIME 30 Days Qty: 120 0RF Protocol: Hold for SBP< HOLD for SBP < : 90 mirtazapine 7.5 mg Tablet 7.5 mg PO BEDTIME MRX1 30 Days Qty: 60 0RF lisinopril 5 mg tablet 1 tab PO DAILY 0RF nicotine 21 mg/24 hr Patch 24 Hour 1 patch TRANSDERMAL DAILY PRN (Reason: Nicotine Cravings) 0RF
[2021-12-29 02:14] LABS: Amphetamine Screen Urine Not Detected (Not Detect); Barbiturates, Urine Not Detected (Not Detect); Benzodiazepines Screen Urine Not Detected (Not Detect); Cannabinoid Screen Urine Not Detected (Not Detect); Cocaine Screen Urine Not Detected (Not Detect); Fentanyl, urine Not Detected (Not Detect); Opiate Screen Urine Not Detected (Not Detect); Phencyclidine Screen Urine Not Detected (Not Detect)
[2021-12-29 02:23] LABS: COVID-19 Test Negative (Negative)
--- NOTE | 2021-12-29 05:52 | PC.NURSE ---
Patient slept through the night, no distress observed/reported, behavior non concerning at this time, med rec completed/pending provider's approval, patient returned back to ED after 3 hours of discharge from ED POD, patient will be assessed by care team in the morning, will continue to monitor.
[2021-12-29 06:10] VITALS: BP 154/64; PULSE 86; RESP 17; TEMP 36.7; O2SAT 92
--- NOTE | 2021-12-29 09:55 | MHC.CARE ---
Pt is a 45 y/o single, , Congolese speaking, female, who is previously known to the CARE Team through prior assessments, ED visits and in patient stays.? Yesterday, she was transported to this facility for a second time that day after reporting hearing voices and cutting herself on the midsection. Pt has been medically cleared and is being screened for risk by the CARE Team to determine appropriate treatment recommendations. Pt has an extensive hx of inpt hospitalizations. Past documented hx of Major depressive d/o,?PTSD, and Borderline personality d/o. Pt has a hx of self-harm and suicide attempts. Pt is alert and oriented x4 and is assessed by CARE Team in her room in the behavioral health pod.? She is disheveled in appearance and appears older than her stated age.? Pt's eye contact and speech are within normal limits.? She reports good sleep last night and reports her appetite as good, though she did not eat her breakfast, stating she would eat at home.? She describes her mood as ?better?.? Pt's affect is variable, smiling at times.? She reports hearing voices yesterday evening, which prompted her behavior but stated she is no longer hearing voices.? She stated that after she was discharged yesterday, she returned as the voices ?Came back.?? She denies SI, , HI and self-harm urges.? No thoughts of harm to others.? Insight, judgement, memory and concentration appear good. Pt's functioning today appears to be at her baseline.? She reports no auditory hallucinations, which are ever present to varying degrees at her baseline.? Today, she describes her voices as absent. CARE Team discussed her frequent visits to the ED.? Pt stated that evenings are the hardest for her because her trauma had occurred in the evening.? CARE Team and pt discussed interventions that could occur in the evening to provide distraction from self-harming behavior and the voices.? Pt stated that she could hang around with staff and watch tv, take walks with staff, type goals on her computer and listen to music. Pt will be occupying her day with cleaning her room, listening to music and typing on her computer.? She stated that she has an appointment with her [facility] worker today at 3:00PM and that they will be having dinner as well which will occupy a period of her evening.? She stated that she will be watching tv and associating with staff this evening after dinner to occupy her time. The plan is for [facility] to be [facility] to [facility].? CARE Team will secure a ride for pt.? This disposition was discussed with and agreed upon by ED Provider Caleb, and pt?s nurse WALKER Donaldson. CARE Team contacted the [facility]p to advise them that pt will be discharged back to the [facility].? CARE Team with secure a Lyft for pt. CARE Team will conduct a follow up phone call this afternoon to check on the pt. F33.0 - Major depressive d/o, recurrent episode, mild, F43.10 - Post Traumatic Stress d/o, F60.3 - Borderline personality d/o SAFETY PLAN Step 1: Warning signs: ? 1.? Command Hallucinations that Occur Mostly at night? 2.? Nights are difficult for Lucita? 3.? Step 2: Internal coping strategies - Things I can do to take my mind off my problems without contacting another person: 1.? Hang out with staff and watch TV ? 2.? Go for walks with staff? 3.? Listen to music, type on computer (goal setting)? Step 3: People and social settings that can provide distraction: ? 1.? Name Favorite staff members? Phone ? 2.? Name [facility] worker? Phone ? 3.? Place ? 4.? Place ?Step 4:People whom I can ask for help:? 1.? Name Care Home staff? Phone ? 2.? Name? Phone ? 3.? Name? Phone ?Step 5: Professionals or agencies I can contact during a crisis: ? 1.? Clinician Name Care Home staff? Phone ? 2.? Clinician Name? Phone ? 3.? Suicide Prevention Lifeline: 0-070-350-JQTJ (0081) 4.? Crisis Text Line: Text HOME to 921-023 5.? [facility] [address], [address] [phone], ? [facility] [address] [place], [place] [phone] ? [facility] [address], [place] [phone] ? ? [facility] Phone/Address: ? Step 6: Making the environment safe: ? 1.? Removing breakable items/items you can cut/harm yourself with ? 2.? CARE Team will follow up with a phone call to check in this afternoon.? Reproduced with permission(? Adeline & Julián). www.[email or web address].suicideIconic [email or web address]/ Javan Guzman & Leighann Gallego (2012).Safety planning intervention: A brief intervention to mitigatesuicide risk. [facility], 19, [phone] Signature: ?
[2021-12-29] MEDS: chlorproMAZINE HCl 25 MG TABLET 75 MG PO (10:00)
[2021-12-29] MEDS: Atorvastatin Calcium 10 MG TABLET PO (10:00)
[2021-12-29] MEDS: FLUoxetine HCl 20 MG CAPSULE 40 MG PO (10:01)
[2021-12-29] MEDS: lisinopriL 5 MG TABLET PO (10:01)
[2021-12-29] MEDS: metFORMIN HCl 500 MG TABLET PO (10:01)
[2021-12-29] MEDS: Benztropine Mesylate 1 MG TABLET PO (10:01)
--- NOTE | 2021-12-29 10:03 | PC.NURSE ---
belongings returned to pt, medicated per provider order, pt discharged - Lyft arranged.
--- NOTE | 2021-12-29 20:05 | MHC.CARE ---
CARE team called Lucita for phone check in, left message on voice mail and waiting for return phone call.
== END 2021-12-29 10:05 | disposition home or self-care (01) ==
PROVIDERS: Emergency Provider Internal Medicine
DX: F33.2 Major depressive disorder, recurrent severe without psychotic features (principal); R45.851 Suicidal ideations; F60.3 Borderline personality disorder; F43.10 Post-traumatic stress disorder, unspecified; S30.811A Abrasion of abdominal wall, initial encounter; X78.8XXA Intentional self-harm by other sharp object, initial encounter; E11.9 Type 2 diabetes mellitus without complications; E78.5 Hyperlipidemia, unspecified; F17.200 Nicotine dependence, unspecified, uncomplicated; Z20.822 Contact with and (suspected) exposure to COVID-19; Z79.02 Long term (current) use of antithrombotics/antiplatelets; Z79.899 Other long term (current) drug therapy; Y93.9 Activity, unspecified; Y92.049 Unspecified place in boarding-house as the place of occurrence of the external cause; Y99.9 Unspecified external cause status
CPT/HCPCS: 80307; 87635; 99284

== ENCOUNTER 2022-01-03 18:29 | Emergency (ER) | payer MEDICARE, MEDICAID, SELFPAY ==
[2022-01-03 18:49] VITALS: BP 130/77; BP 160/96; PULSE 104; RESP 20; TEMP 37.1; O2SAT 97; BMI 37.9
[2022-01-03] MEDS: chlorproMAZINE HCl 25 MG TABLET 75 MG PO (19:38)
--- NOTE | 2022-01-03 19:54 | ED_ITS ---
HPI - Psych General Chief Complaint: Psychiatric Symptoms Stated Complaint: crisis Time Seen by Provider: 01/03/22 19:01 Source: patient Mode of arrival: EMS Limitations: no limitations History of Present Illness HPI Narrative: Patient history of PTSD bipolar disorder personality disorder pain here almost 300 times in last 1 year comes here as been hearing voices of his father asking her as she is useless and to kill herself ,patient feels suicidal plan to cut herself as in the past Related Data Home Medications Medication Instructions Recorded Confirmed polyethylene glycol 3350 17 gram 17 g PO DAILY PRN 02/12/21 12/29/21 oral powder packet (Miralax) atorvastatin 10 mg tablet 1 tab PO DAILY 05/29/21 12/29/21 ferrous sulfate 325 mg (65 mg 1 tab PO DAILY 05/29/21 12/29/21 iron) tablet,delayed release fluticasone propionate 110 2 puff INHALATION BID 05/29/21 12/29/21 mcg/actuation HFA aerosol inhaler (Flovent HFA) metformin 500 mg tablet 1 tab PO BID 05/29/21 12/29/21 montelukast 10 mg tablet 1 tab PO BEDTIME 05/29/21 12/29/21 norethindrone (contraceptive) 0.35 0.35 mg PO DAILY 05/29/21 12/29/21 mg tablet (Deblitane) pantoprazole 40 mg tablet,delayed 1 tab PO BID@0630,1630 05/29/21 12/29/21 release verapamil 240 mg tablet,extended 1 tab PO BEDTIME 05/29/21 12/29/21 release albuterol sulfate 90 mcg/actuation 2 puff INHALATION Q4H PRN 06/15/21 12/29/21 aerosol inhaler (Ventolin HFA) ibuprofen 600 mg tablet 600 mg PO Q6H PRN 09/19/21 12/29/21 trazodone 150 mg tablet 150 mg PO BEDTIME PRN 11/05/21 12/29/21 clonazepam 0.5 mg tablet 0.5 mg PO QID PRN 11/11/21 12/29/21 lisinopril 5 mg tablet 1 tab PO DAILY 11/14/21 12/29/21 nicotine 21 mg/24 hr daily 1 patch TRANSDERMAL DAILY PRN 11/14/21 12/29/21 transdermal patch benztropine 1 mg tablet 1 mg PO QAM 12/26/21 12/29/21 chlorpromazine 25 mg tablet 75 mg PO BID PRN 12/26/21 12/29/21 chlorpromazine 25 mg tablet 75 mg PO QAM 12/26/21 12/29/21 Previous Rx's Medication Instructions Recorded hydroxyzine HCl 50 mg tablet 50 mg PO QID PRN 30 Days #120 tab 07/27/21 fluoxetine 20 mg capsule 40 mg PO DAILY 30 Days #60 cap 09/29/21 mirtazapine 7.5 mg tablet 7.5 mg PO BEDTIME MRX1 30 Days #60 10/18/21 tab prazosin 1 mg capsule 4 mg PO BEDTIME 30 Days #120 cap 10/18/21 Allergies Allergy/AdvReac Type Severity Reaction Status Date / Time Fish Containing Products Allergy Severe ANAPHYLAXIS Verified 11/14/21 08:35 codeine [Codeine] Allergy Unknown RASH Verified 11/14/21 08:35 Penicillins Allergy Unknown RASH Verified 11/14/21 08:35 prednisone [Prednisone] Allergy Unknown RASH Verified 11/14/21 08:35 Sulfa (Sulfonamide Allergy Unknown RASH Verified 11/14/21 08:35 Antibiotics) [Sulfa (Sulfonamides)] azithromycin [AZITHROMYCIN] AdvReac Severe RASH Verified 11/14/21 08:35 nicotine AdvReac Unknown HEART Verified 11/14/21 08:35 PALPITATION TO NICOTINE GUM Seafood Allergy Severe ANAPHYLAXIS Uncoded 11/05/21 21:13 From Geodon Allergy Unknown DYSURIA, Uncoded 11/05/21 21:13 RASH Review of Systems Review of Systems: Yes all other systems are reviewed and are negative [facility] Past Medical History Medical History Bronchitis Diabetes type 2, controlled GERD (gastroesophageal reflux disease) Hyperlipidemia MDD (major depressive disorder), recurrent episode, severe Mood disorder Overdose PTSD (post-traumatic stress disorder) Social History Social History 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: None 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 Other:: Patient lives in nursing home. 4 in total live in nursing home. Housing: Other Housing Other:: [facility] Do you presently have visiting nurse or other home services: No (Medication administered by nursing home staff) Unable to assess alcohol history related to: Unknown Alcohol intake: never Patient Tobacco Use Status: Current everyday Tobacco user Tobacco use type: Cigarette Cigarette Packs Per Day: 1 Cigarettes Per Day: 20 Years Smoked: 20 e-Cigarette/Vaping Use: Never Used Second Hand Smoke Exposure: Yes Substance Use Type: Caffiene Advance Directives: No Advance Directives Information Provided: No service: No Sexual orientation: Don't Know Physical Exam Vital Signs: Vital Signs: Last Vital Signs Temp 98.7 F 01/03/22 18:49 Pulse 104 H 01/03/22 18:49 Resp 20 01/03/22 18:49 BP 130/77 01/03/22 18:49 Pulse Ox 97 01/03/22 18:49 BMI result Body Mass Index 37.9 Appearance: Alert. Oriented X3. No acute distress. ENT: Pharynx normal. Oral Mucosa moist Neck: Normal inspection. Neck supple. CVS: Normal heart rate and rhythm. Pulses normal. Respiratory: No respiratory distress. Equal air entry bilateral, no wheezing/rales/rhonchi Abdomen: Soft and nontender. Bowel sounds are present, no mass palpable, no CVA tenderness Skin: Skin warm and dry. Normal skin color. Normal skin turgor. Extremities: No lower extremity edema. No calf tenderness psych: Anxious tearful feels suicidal no ulceration at this time no delusions Neuro: Oriented X 3. No motor deficit. No sensory deficit.No cerebellar signs , cranial nerves II-XII intact MDM - Psych MDM Narrative Medical decision making narrative: Patient seen by therapist for care discharge patient home follow-up with outpatient Discharge Plan Discharge Clinical Impression: PTSD (post-traumatic stress disorder) Patient Disposition: Home, Self-Care Instructions: Post Traumatic Stress Disorder (ED) Additional Instructions: Take medication as prescribed by your psychiatrist You were given chlorpromazine 75 mg tonight at 19:00 Prescriptions: No Action polyethylene glycol 3350 [Miralax] 17 gram Powder In Packet 17 g PO DAILY PRN (Reason: Constipation) 0RF metformin 500 mg tablet 1 tab PO BID 0RF atorvastatin 10 mg tablet 1 tab PO DAILY 0RF pantoprazole 40 mg tablet,delayed release (DR/EC) 1 tab PO BID@0630,1630 0RF verapamil 240 mg tablet extended release 1 tab PO BEDTIME 0RF montelukast 10 mg tablet 1 tab PO BEDTIME 0RF ferrous sulfate 325 mg (65 mg iron) tablet,delayed release (DR/EC) 1 tab PO DAILY 0RF Flovent HFA 110 mcg/actuation HFA aerosol inhaler 2 puff inhalation BID 0RF norethindrone (contraceptive) [Deblitane] 0.35 mg Tablet 0.35 mg PO DAILY 0RF albuterol sulfate [Ventolin HFA] 90 mcg/actuation HFA aerosol inhaler 2 puff inhalation Q4H PRN (Reason: Shortness Of Breath) 0RF trazodone 150 mg tablet 150 mg PO BEDTIME PRN (Reason: insomnia) 0RF clonazepam 0.5 mg tablet 0.5 mg PO QID PRN (Reason: anxiety/AH) 0RF Rx Instructions: may take within 1 hour of each other; max dose 1mg daily benztropine 1 mg tablet 1 mg PO QAM 0RF chlorpromazine 25 mg Tablet 75 mg PO QAM 0RF chlorpromazine 25 mg tablet 75 mg PO BID PRN (Reason: agitation) 0RF hydroxyzine HCl 50 mg Tablet 50 mg PO QID PRN (Reason: Anxiety) 30 Days Qty: 120 0RF ibuprofen 600 mg Tablet 600 mg PO Q6H PRN (Reason: Mild Pain (Scale Score 1-4)) 0RF fluoxetine 20 mg Capsule 40 mg PO DAILY 30 Days Qty: 60 0RF prazosin 1 mg Capsule 4 mg PO BEDTIME 30 Days Qty: 120 0RF Protocol: Hold for SBP< HOLD for SBP < : 90 mirtazapine 7.5 mg Tablet 7.5 mg PO BEDTIME MRX1 30 Days Qty: 60 0RF lisinopril 5 mg tablet 1 tab PO DAILY 0RF nicotine 21 mg/24 hr Patch 24 Hour 1 patch TRANSDERMAL DAILY PRN (Reason: Nicotine Cravings) 0RF
== END 2022-01-03 20:15 | disposition home or self-care (01) ==
PROVIDERS: Emergency Provider Internal Medicine
DX: F43.10 Post-traumatic stress disorder, unspecified (principal); R45.851 Suicidal ideations; F31.9 Bipolar disorder, unspecified; F60.3 Borderline personality disorder; E11.9 Type 2 diabetes mellitus without complications; E78.5 Hyperlipidemia, unspecified; F17.200 Nicotine dependence, unspecified, uncomplicated; Z79.899 Other long term (current) drug therapy; Z79.02 Long term (current) use of antithrombotics/antiplatelets
CPT/HCPCS: 99283; 99284

== ENCOUNTER 2022-01-08 20:40 | Emergency (ER) | payer MEDICARE, MEDICAID, SELFPAY ==
--- NOTE | 2022-01-08 20:42 | ED.PSYCH ---
HPI - Psych General Chief Complaint: Psychiatric Symptoms Stated Complaint: crisis Source: patient and EMS Mode of arrival: EMS Limitations: no limitations History of Present Illness HPI Narrative: 46-year-old female presents via EMS for crisis evaluation. MD complaint: suicidal ideation, feels depressed and anxiety Onset (ago): year(s) Duration: constant History of same: Yes Relieving factors: none Context: significant life stressor Associated psychiatric symptoms: depression and suicidal ideation Associated symptoms: denies other symptoms Treatments prior to arrival: none If self harm: admits thoughts of self harm Related Data Home Medications Medication Instructions Recorded Confirmed polyethylene glycol 3350 17 gram 17 g PO DAILY PRN 02/12/21 01/08/22 oral powder packet (Miralax) atorvastatin 10 mg tablet 1 tab PO DAILY 05/29/21 01/08/22 ferrous sulfate 325 mg (65 mg 1 tab PO DAILY 05/29/21 01/08/22 iron) tablet,delayed release fluticasone propionate 110 2 puff INHALATION BID 05/29/21 01/08/22 mcg/actuation HFA aerosol inhaler (Flovent HFA) metformin 500 mg tablet 1 tab PO BID 05/29/21 01/08/22 montelukast 10 mg tablet 1 tab PO BEDTIME 05/29/21 01/08/22 norethindrone (contraceptive) 0.35 0.35 mg PO DAILY 05/29/21 01/08/22 mg tablet (Deblitane) pantoprazole 40 mg tablet,delayed 1 tab PO BID@0630,1630 05/29/21 01/08/22 release verapamil 240 mg tablet,extended 1 tab PO BEDTIME 05/29/21 01/08/22 release albuterol sulfate 90 mcg/actuation 2 puff INHALATION Q4H PRN 06/15/21 01/08/22 aerosol inhaler (Ventolin HFA) ibuprofen 600 mg tablet 600 mg PO Q6H PRN 09/19/21 01/08/22 trazodone 150 mg tablet 150 mg PO BEDTIME PRN 11/05/21 01/08/22 clonazepam 0.5 mg tablet 0.5 mg PO QID PRN 11/11/21 01/08/22 lisinopril 5 mg tablet 1 tab PO DAILY 11/14/21 01/08/22 nicotine 21 mg/24 hr daily 1 patch TRANSDERMAL DAILY PRN 11/14/21 01/08/22 transdermal patch benztropine 1 mg tablet 1 mg PO QAM 12/26/21 01/08/22 chlorpromazine 25 mg tablet 75 mg PO BID PRN 12/26/21 01/08/22 chlorpromazine 25 mg tablet 75 mg PO QAM 12/26/21 01/08/22 Previous Rx's Medication Instructions Recorded hydroxyzine HCl 50 mg tablet 50 mg PO QID PRN 30 Days #120 tab 07/27/21 fluoxetine 20 mg capsule 40 mg PO DAILY 30 Days #60 cap 09/29/21 mirtazapine 7.5 mg tablet 7.5 mg PO BEDTIME MRX1 30 Days #60 10/18/21 tab prazosin 1 mg capsule 4 mg PO BEDTIME 30 Days #120 cap 10/18/21 Allergies Allergy/AdvReac Type Severity Reaction Status Date / Time Fish Containing Products Allergy Severe ANAPHYLAXIS Verified 11/14/21 08:35 codeine [Codeine] Allergy Unknown RASH Verified 11/14/21 08:35 Penicillins Allergy Unknown RASH Verified 11/14/21 08:35 prednisone [Prednisone] Allergy Unknown RASH Verified 11/14/21 08:35 Sulfa (Sulfonamide Allergy Unknown RASH Verified 11/14/21 08:35 Antibiotics) [Sulfa (Sulfonamides)] azithromycin [AZITHROMYCIN] AdvReac Severe RASH Verified 11/14/21 08:35 nicotine AdvReac Unknown HEART Verified 11/14/21 08:35 PALPITATION TO NICOTINE GUM Seafood Allergy Severe ANAPHYLAXIS Uncoded 11/05/21 21:13 From Geodon Allergy Unknown DYSURIA, Uncoded 11/05/21 21:13 RASH Review of Systems Review of Systems: Constitutional: No Fever, No Chills ENT/Mouth: No Ear Pain, No Nasal Congestion, No sore throat Eyes: No Eye Pain, No Swelling, No Redness Cardiovascular: No Chest Pain, No SOB Respiratory: No Cough, No Sputum, No Dyspnea Gastrointestinal: No Nausea, No Vomiting, No Diarrhea, No Hematochezia, No Melena Genitourinary: No Dysuria, No Urinary Frequency, No Hematuria Musculoskeletal: No Myalgias Skin: No Skin Lesions, No rash Neuro: No Weakness, No Numbness, No Paresthesias, No Dizziness, No Headache Psych: positive Anxiety, positive Depression, positive SI Heme/Lymph: No Lymphadenopathy Endocrine: No Polyuria, No Polydipsia Yes all other systems are reviewed and are negative [facility] Past Medical History Attestation statement: The following information was validated with the patient. Source: old records reviewed Medical History Bronchitis Diabetes type 2, controlled GERD (gastroesophageal reflux disease) Hyperlipidemia MDD (major depressive disorder), recurrent episode, severe Mood disorder Overdose PTSD (post-traumatic stress disorder) Social History Social History 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: None 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 Other:: Patient lives in custodial. 4 in total live in custodial. Housing: Other Housing Other:: [facility] Do you presently have visiting nurse or other home services: No (Medication administered by custodial staff) Unable to assess alcohol history related to: Unknown Alcohol intake: never Patient Tobacco Use Status: Current everyday Tobacco user Tobacco use type: Cigarette Cigarette Packs Per Day: 1 Cigarettes Per Day: 20 Years Smoked: 20 e-Cigarette/Vaping Use: Never Used Second Hand Smoke Exposure: Yes Substance Use Type: Caffiene Advance Directives: No Advance Directives Information Provided: No Patient : No service: No Sexual orientation: Don't Know Physical Exam Vital Signs: Vital Signs: Last Vital Signs Temp 97.9 F 01/08/22 20:45 Pulse 90 01/08/22 20:45 Resp 16 01/08/22 20:45 BP 176/92 H 01/08/22 20:45 Pulse Ox 97 01/08/22 20:45 BMI result Body Mass Index 39.8 Appearance: Alert. Oriented X3. Mild emotional distress. Eyes: Pupils equal, round and reactive to light. ENT: Pharynx normal. Neck: Normal inspection. Neck supple. CVS: Normal heart rate and rhythm. Pulses normal. Respiratory: No respiratory distress. Breath sounds normal. Abdomen: Soft and nontender. Skin: Skin warm and dry. Normal skin color. Normal skin turgor. Extremities: Multiple superficial abrasions that are self-inflicted to bilateral arms. Gait well-balanced well coordinated. Neuro: No motor deficit. No sensory deficit. Cranial nerves 2-12 intact. Course Course Course Narrative: 46-year-old female well known to this facility presents for suicidal ideation and anxiety. Has multiple superficial wounds to her forearms. Tdap vaccine is up-to-date. Patient has an extensive care plan in place. Care team to evaluate patient. 21:38 physician observation started at this time. Plan of care to DC in the morning after care team evaluation. MDM - Psych Differential Diagnosis Differential diagnosis: Likely suicidal ideation and depression Medical Records Attestation: I reviewed the patient's medical records. Lab Data Attestation: I reviewed the patient's lab results. Labs: Lab Results 01/08/22 01/08/22 01/08/22 Range/Units 20:56 20:56 20:56 POC Glucose (60-115) mg/dL Urine Color YELLOW Urine Appearance CLEAR Urine pH 6.5 (5.0-8.0) Ur Specific [place] <= 1.005 (1.005-1.025) Urine Protein NEG (NEG-TRACE) MG/DL Urine Glucose (UA) NEG (NEG) MG/DL Urine Ketones NEG (NEG) MG/DL Urine Blood NEG (NEG) Urine Nitrite NEG (NEG) Ur Leukocyte Esterase NEG (NEG) Urine Opiates Screen Not Detected (Not Detect) Urine Fentanyl Screen Not Detected (Not Detect) Ur Barbiturates Screen Not Detected (Not Detect) Ur Phencyclidine Scrn Not Detected (Not Detect) Ur Amphetamines Screen Not Detected (Not Detect) U Benzodiazepines Scrn Not Detected (Not Detect) Urine Cocaine Screen Not Detected (Not Detect) U Marijuana (THC) Screen Not Detected (Not Detect) COVID-19 (NICK) Negative (Negative) COVID-19 Clin Com See Note 01/08/22 Range/Units 20:59 POC Glucose 119 H (60-115) mg/dL Urine Color Urine Appearance Urine pH (5.0-8.0) Ur Specific [place] (1.005-1.025) Urine Protein (NEG-TRACE) MG/DL Urine Glucose (UA) (NEG) MG/DL Urine Ketones (NEG) MG/DL Urine Blood (NEG) Urine Nitrite (NEG) Ur Leukocyte Esterase (NEG) Urine Opiates Screen (Not Detect) Urine Fentanyl Screen (Not Detect) Ur Barbiturates Screen (Not Detect) Ur Phencyclidine Scrn (Not Detect) Ur Amphetamines Screen (Not Detect) U Benzodiazepines Scrn (Not Detect) Urine Cocaine Screen (Not Detect) U Marijuana (THC) Screen (Not Detect) COVID-19 (NICK) (Negative) COVID-19 Clin Com Discharge Plan Discharge Clinical Impression: Depression, Borderline personality disorder Patient Disposition: Home, Self-Care Instructions: Depression (ED) Additional Instructions: Please follow-up with outpatient psychiatry Thank you for choosing this emergency department for evaluation. Please follow-up with primary care physician as needed. Return to the emergency department for any new, concerning, or worsening symptoms. Prescriptions: No Action polyethylene glycol 3350 [Miralax] 17 gram Powder In Packet 17 g PO DAILY PRN (Reason: Constipation) 0RF metformin 500 mg tablet 1 tab PO BID 0RF atorvastatin 10 mg tablet 1 tab PO DAILY 0RF pantoprazole 40 mg tablet,delayed release (DR/EC) 1 tab PO BID@0630,1630 0RF verapamil 240 mg tablet extended release 1 tab PO BEDTIME 0RF montelukast 10 mg tablet 1 tab PO BEDTIME 0RF ferrous sulfate 325 mg (65 mg iron) tablet,delayed release (DR/EC) 1 tab PO DAILY 0RF Flovent HFA 110 mcg/actuation HFA aerosol inhaler 2 puff inhalation BID 0RF norethindrone (contraceptive) [Deblitane] 0.35 mg Tablet 0.35 mg PO DAILY 0RF albuterol sulfate [Ventolin HFA] 90 mcg/actuation HFA aerosol inhaler 2 puff inhalation Q4H PRN (Reason: Shortness Of Breath) 0RF trazodone 150 mg tablet 150 mg PO BEDTIME PRN (Reason: insomnia) 0RF clonazepam 0.5 mg tablet 0.5 mg PO QID PRN (Reason: anxiety/AH) 0RF Rx Instructions: may take within 1 hour of each other; max dose 1mg daily benztropine 1 mg tablet 1 mg PO QAM 0RF chlorpromazine 25 mg Tablet 75 mg PO QAM 0RF chlorpromazine 25 mg tablet 75 mg PO BID PRN (Reason: agitation) 0RF hydroxyzine HCl 50 mg Tablet 50 mg PO QID PRN (Reason: Anxiety) 30 Days Qty: 120 0RF ibuprofen 600 mg Tablet 600 mg PO Q6H PRN (Reason: Mild Pain (Scale Score 1-4)) 0RF fluoxetine 20 mg Capsule 40 mg PO DAILY 30 Days Qty: 60 0RF prazosin 1 mg Capsule 4 mg PO BEDTIME 30 Days Qty: 120 0RF Protocol: Hold for SBP< HOLD for SBP < : 90 mirtazapine 7.5 mg Tablet 7.5 mg PO BEDTIME MRX1 30 Days Qty: 60 0RF lisinopril 5 mg tablet 1 tab PO DAILY 0RF nicotine 21 mg/24 hr Patch 24 Hour 1 patch TRANSDERMAL DAILY PRN (Reason: Nicotine Cravings) 0RF
[2022-01-08 20:45] VITALS: BP 176/92; PULSE 90; RESP 16; TEMP 36.6; O2SAT 97; BMI 39.8
[2022-01-08 21:10] LABS: Appearance Urine CLEAR; Color Urine YELLOW; Glucose Urine UA NEG (NEG); Leukocyte Esterase Urine NEG (NEG); Nitrite Urine NEG (NEG); PH 6.5 (5.0-8.0); Specific Gravity - Urine <= 1.005 (1.005-1.025); Urine Blood NEG (NEG); Urine Ketones NEG (NEG); Urine Protein NEG (NEG-TRACE)
[2022-01-08 21:31] LABS: Amphetamine Screen Urine Not Detected (Not Detect); Barbiturates, Urine Not Detected (Not Detect); Benzodiazepines Screen Urine Not Detected (Not Detect); Cannabinoid Screen Urine Not Detected (Not Detect); Cocaine Screen Urine Not Detected (Not Detect); Fentanyl, urine Not Detected (Not Detect); Opiate Screen Urine Not Detected (Not Detect); Phencyclidine Screen Urine Not Detected (Not Detect)
[2022-01-08 22:01] LABS: COVID-19 Test Negative (Negative); IDNOW Serial# 08D9AD1C
[2022-01-09 00:38] LABS: Glucose, Whole Blood 119 mg/dL (60-115)
[2022-01-09 03:58] VITALS: BP 128/72; PULSE 86; RESP 17; TEMP 36.9; O2SAT 95
--- NOTE | 2022-01-09 06:21 | PC.NURSE ---
Patient slept through the night, no distress observed/reported, behavior appropriate, med rec completed/pending providers' approval, patient will be assessed by care team in the morning, will continue to monitor.
--- NOTE | 2022-01-09 07:25 | PC.NURSE ---
patient appears to remain asleep at present respirations are even and unlabored patient appears in no distress
[2022-01-09 07:58] VITALS: BP 143/86; PULSE 88; RESP 16; TEMP 36.6; O2SAT 96
[2022-01-09] MEDS: Atorvastatin Calcium 10 MG TABLET PO ×2 (09:08)
[2022-01-09] MEDS: metFORMIN HCl 500 MG TABLET PO (09:08)
[2022-01-09] MEDS: Benztropine Mesylate 1 MG TABLET PO (09:08)
[2022-01-09] MEDS: chlorproMAZINE HCl 25 MG TABLET 75 MG PO (09:08)
[2022-01-09] MEDS: lisinopriL 5 MG TABLET PO (09:09)
[2022-01-09] MEDS: FLUoxetine HCl 20 MG CAPSULE 40 MG PO (09:09)
--- NOTE | 2022-01-09 09:59 | MHC.CARE ---
CARE Team met with pt this morning to check in and create a plan for the day. Pt was seen in [facility] dressed in [facility] and wrapped in a blanket. Pt presented with flat affect but was able to engage in humor with this creative services writer and reported mood to be calm. Pt was observed with superficial lacerations to both forearms. Pt was alert and oriented x4 and reported she was feeling ready to return home. Pt presented to the ED last night from her long term secondary to suicidal ideation and self-harm. 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 Pt stated that she plans to attend college for a degree in pattern designer education, which she is excited about. Pt reported that she may have felt stressed or overwhelmed in the context of completing the healthcare financial analyst paperwork, which prompted a dissociative episode. Pt stated ?I don?t know what happened, I guess I cut myself and then was here. I felt like a 7-year-old.? CARE Team prompted pt to identify the specific steps she took to harm herself prior to arriving to the hospital. Pt reported that she had been in her bedroom drinking tea when she became overwhelmed. Pt then broke her mug and used that to cut herself. Pt stated that she does not remember much from that moment until arriving to the hospital, but stated that staff have already cleaned up the broken mug from her room. Pt denied having any other mugs or potentially dangerous objects in her bedroom at home. Pt denied current suicidal ideation or thoughts of hurting herself. Pt worked with CARE Team to create a plan for the rest of her day and identify coping skills she can utilize if negative thoughts or feelings arise. Pt has a yoga class at [facility] this morning at 10:30, which she plans to attend with a friend. Pt reported that her friend will be picking her up from her home and driving her to yoga. Following yoga, pt plans to go to [employer] with her friend and then puga a check before heading back home. Pt made a plan for additional activities later today to keep her occupied. Pt plans to put clothes away in her room while listening to music, which she identified as one of her main coping skills. Pt stated that she can also color with peers or staff and take a walk outside if it?s not too cold. If it is too cold, pt has an exercise video she can use inside. Pt identified that it would be helpful to have a check-in phone call with CARE Team this afternoon, which is scheduled for 3pm. Pt identified staff members Toni and Adina at her long term who she can also ask for support. CARE Team spoke with Adina at [facility] to check in regarding the plan for pt to discharge back home this morning. CARE Team provided information about pt?s plan for the rest of the day, the coping skills she identified to use, and pt?s current presentation. Adina had no concerns about pt returning home this morning. Disposition and discharge plan were discussed with ED provider, pt?s nurse, and CARE cargo service supervisor. A Lyft ride was arranged for pt to return home by 10:00am.
--- NOTE | 2022-01-09 14:46 | MHC.CARE ---
CARE Team international organizer called pt for a scheduled check-in call following discharge from the ED this morning. Pt reported that she was not doing well and was feeling ?the same way I was last night, like a 7-year-old.? CARE Team international organizer spoke with pt about her planned activities for the day. Pt reported that she did not attend her yoga class but did spend time with her friend and went shopping as planned. Pt was unable to identify a precipitant to her negative thoughts and stated she had been watching TV before she started feeling unsafe. Pt reported that she was in her bedroom listening to [employer] and clutching a jewel bear. Pt reported that she had reached out to her snf staff, Adina, to report how she was feeling and had also called crisis with a scheduled call-back soon. Pt expressed the desire to stay out of the hospital and this medical technical writer encouraged pt to continue utilizing her supports in the community. This medical technical writer reminded pt of the peers and staff who care about her and want to support her at home. CARE Team international organizer discussed additional coping skills with pt that she could implement at home to increase safety. Pt was encouraged to remain in common areas of the house if she was feeling unsafe and pt reported that her plan when she got off the phone was to call crisis back for her scheduled call with the clinician she had recently spoken to. Pt ended the conversation to call [facility] crisis.
== END 2022-01-09 09:43 | disposition home or self-care (01) ==
PROVIDERS: Nurse Practitioner Family; Emergency Provider Emergency Medicine Emergency Medical Services
DX: F33.1 Major depressive disorder, recurrent, moderate (principal); R45.851 Suicidal ideations; F41.1 Generalized anxiety disorder; F60.3 Borderline personality disorder; F43.0 Acute stress reaction; F17.210 Nicotine dependence, cigarettes, uncomplicated; Z20.822 Contact with and (suspected) exposure to COVID-19; Z71.6 Tobacco abuse counseling; Z79.899 Other long term (current) drug therapy
CPT/HCPCS: 80307; 81003; 82947; 87635; 99284

== ENCOUNTER 2022-01-09 20:37 | Emergency (ER) | payer MEDICARE, MEDICAID, SELFPAY ==
--- NOTE | 2022-01-09 20:39 | ED_ITS ---
HPI - Psych General Chief Complaint: Psychiatric Symptoms Stated Complaint: SI Source: patient and EMS Mode of arrival: EMS Limitations: no limitations History of Present Illness HPI Narrative: 46-year-old female presents via EMS for suicidal ideation. MD complaint: suicidal ideation Onset (ago): year(s) Duration: constant History of same: Yes Relieving factors: none Exacerbating factors: none Associated psychiatric symptoms: depression and suicidal ideation Associated symptoms: denies other symptoms Treatments prior to arrival: none If self harm: admits thoughts of self harm Related Data Home Medications Medication Instructions Recorded Confirmed polyethylene glycol 3350 17 gram 17 g PO DAILY PRN 02/12/21 01/08/22 oral powder packet (Miralax) atorvastatin 10 mg tablet 1 tab PO DAILY 05/29/21 01/08/22 ferrous sulfate 325 mg (65 mg 1 tab PO DAILY 05/29/21 01/08/22 iron) tablet,delayed release fluticasone propionate 110 2 puff INHALATION BID 05/29/21 01/08/22 mcg/actuation HFA aerosol inhaler (Flovent HFA) metformin 500 mg tablet 1 tab PO BID 05/29/21 01/08/22 montelukast 10 mg tablet 1 tab PO BEDTIME 05/29/21 01/08/22 norethindrone (contraceptive) 0.35 0.35 mg PO DAILY 05/29/21 01/08/22 mg tablet (Deblitane) pantoprazole 40 mg tablet,delayed 1 tab PO BID@0630,1630 05/29/21 01/08/22 release verapamil 240 mg tablet,extended 1 tab PO BEDTIME 05/29/21 01/08/22 release albuterol sulfate 90 mcg/actuation 2 puff INHALATION Q4H PRN 06/15/21 01/08/22 aerosol inhaler (Ventolin HFA) ibuprofen 600 mg tablet 600 mg PO Q6H PRN 09/19/21 01/08/22 trazodone 150 mg tablet 150 mg PO BEDTIME PRN 11/05/21 01/08/22 clonazepam 0.5 mg tablet 0.5 mg PO QID PRN 11/11/21 01/08/22 lisinopril 5 mg tablet 1 tab PO DAILY 11/14/21 01/08/22 nicotine 21 mg/24 hr daily 1 patch TRANSDERMAL DAILY PRN 11/14/21 01/08/22 transdermal patch benztropine 1 mg tablet 1 mg PO QAM 12/26/21 01/08/22 chlorpromazine 25 mg tablet 75 mg PO BID PRN 12/26/21 01/08/22 chlorpromazine 25 mg tablet 75 mg PO QAM 12/26/21 01/08/22 Previous Rx's Medication Instructions Recorded hydroxyzine HCl 50 mg tablet 50 mg PO QID PRN 30 Days #120 tab 07/27/21 fluoxetine 20 mg capsule 40 mg PO DAILY 30 Days #60 cap 09/29/21 mirtazapine 7.5 mg tablet 7.5 mg PO BEDTIME MRX1 30 Days #60 10/18/21 tab prazosin 1 mg capsule 4 mg PO BEDTIME 30 Days #120 cap 10/18/21 Allergies Allergy/AdvReac Type Severity Reaction Status Date / Time Fish Containing Products Allergy Severe ANAPHYLAXIS Verified 11/14/21 08:35 codeine [Codeine] Allergy Unknown RASH Verified 11/14/21 08:35 Penicillins Allergy Unknown RASH Verified 11/14/21 08:35 prednisone [Prednisone] Allergy Unknown RASH Verified 11/14/21 08:35 Sulfa (Sulfonamide Allergy Unknown RASH Verified 11/14/21 08:35 Antibiotics) [Sulfa (Sulfonamides)] azithromycin [AZITHROMYCIN] AdvReac Severe RASH Verified 11/14/21 08:35 nicotine AdvReac Unknown HEART Verified 11/14/21 08:35 PALPITATION TO NICOTINE GUM Seafood Allergy Severe ANAPHYLAXIS Uncoded 11/05/21 21:13 From Geodon Allergy Unknown DYSURIA, Uncoded 11/05/21 21:13 RASH Review of Systems Review of Systems: Constitutional: No Fever, No Chills ENT/Mouth: No Ear Pain, No Nasal Congestion, No sore throat Eyes: No Eye Pain, No Swelling, No Redness Cardiovascular: No Chest Pain, No SOB Respiratory: No Cough, No Sputum, No Dyspnea Gastrointestinal: No Nausea, No Vomiting, No Diarrhea, No Hematochezia, No Melena Genitourinary: No Dysuria, No Urinary Frequency, No Hematuria Musculoskeletal: No Myalgias Skin: No Skin Lesions, No rash Neuro: No Weakness, No Numbness, No Paresthesias, No Dizziness, No Headache Psych: positive Anxiety, positive Depression, positive SI Heme/Lymph: No Lymphadenopathy Endocrine: No Polyuria, No Polydipsia Yes all other systems are reviewed and are negative [facility] Past Medical History Attestation statement: The following information was validated with the patient. Source: old records reviewed Medical History Bronchitis Diabetes type 2, controlled GERD (gastroesophageal reflux disease) Hyperlipidemia MDD (major depressive disorder), recurrent episode, severe Mood disorder Overdose PTSD (post-traumatic stress disorder) Social History Social History 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: None 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 Other:: Patient lives in [facility]. 4 in total live in [facility]. Housing: Other Housing Other:: care home Do you presently have visiting nurse or other home services: No (Medication administered by [facility] staff) Unable to assess alcohol history related to: Unknown Alcohol intake: never Patient Tobacco Use Status: Current everyday Tobacco user Tobacco use type: Cigarette Cigarette Packs Per Day: 1 Cigarettes Per Day: 20 Years Smoked: 20 e-Cigarette/Vaping Use: Never Used Second Hand Smoke Exposure: Yes Substance Use Type: Caffiene Advance Directives: No Advance Directives Information Provided: No service: No Sexual orientation: Don't Know Physical Exam Vital Signs: Vital Signs: Last Vital Signs Temp 98.6 F 01/09/22 22:35 Pulse 91 01/09/22 22:35 Resp 14 01/09/22 22:35 BP 138/87 01/09/22 22:35 Pulse Ox 96 01/09/22 22:35 BMI result Body Mass Index 37.9 Appearance: Alert. Oriented X3. No acute distress. Eyes: Pupils equal, round and reactive to light. ENT: Pharynx normal. Neck: Normal inspection. Neck supple. CVS: Normal heart rate and rhythm. Pulses normal. Respiratory: No respiratory distress. Breath sounds normal. Abdomen: Soft and nontender. Skin: Skin warm and dry. Normal skin color. Normal skin turgor. Extremities: Multiple superficial self-inflicted lacerations to arms, legs, abdomen consistent with yesterday's findings. Neuro: No motor deficit. No sensory deficit. Cranial nerves 2-12 intact. Course Course Course Narrative: 46-year-old female presents via EMS for suicidal ideation. States have hallucinations. Patient presents to this facility on a daily basis with multiple visits on some days. Extensive care plan in place. Care team consult for the morning. Midnight. Physician observation at this time. Care team consult MDM - Psych Differential Diagnosis Differential diagnosis: Likely acute psychosis, suicidal ideation, bipolar disorder, depression and acute anxiety Medical Records Attestation: I reviewed the patient's medical records. Discharge Plan Discharge Clinical Impression: Borderline personality disorder, Depression, Suicidal ideation Patient Disposition: Home, Self-Care Instructions: Depression (ED), Borderline Personality Disorder (DC) Additional Instructions: Please follow-up with outpatient psychiatry as scheduled. Thank you for choosing this emergency department for evaluation. Please follow-up with primary care physician as needed. Return to the emergency department for any new, concerning, or worsening symptoms. Prescriptions: No Action polyethylene glycol 3350 [Miralax] 17 gram Powder In Packet 17 g PO DAILY PRN (Reason: Constipation) 0RF metformin 500 mg tablet 1 tab PO BID 0RF atorvastatin 10 mg tablet 1 tab PO DAILY 0RF pantoprazole 40 mg tablet,delayed release (DR/EC) 1 tab PO BID@0630,1630 0RF verapamil 240 mg tablet extended release 1 tab PO BEDTIME 0RF montelukast 10 mg tablet 1 tab PO BEDTIME 0RF ferrous sulfate 325 mg (65 mg iron) tablet,delayed release (DR/EC) 1 tab PO DAILY 0RF Flovent HFA 110 mcg/actuation HFA aerosol inhaler 2 puff inhalation BID 0RF norethindrone (contraceptive) [Deblitane] 0.35 mg Tablet 0.35 mg PO DAILY 0RF albuterol sulfate [Ventolin HFA] 90 mcg/actuation HFA aerosol inhaler 2 puff inhalation Q4H PRN (Reason: Shortness Of Breath) 0RF trazodone 150 mg tablet 150 mg PO BEDTIME PRN (Reason: insomnia) 0RF clonazepam 0.5 mg tablet 0.5 mg PO QID PRN (Reason: anxiety/AH) 0RF Rx Instructions: may take within 1 hour of each other; max dose 1mg daily benztropine 1 mg tablet 1 mg PO QAM 0RF chlorpromazine 25 mg Tablet 75 mg PO QAM 0RF chlorpromazine 25 mg tablet 75 mg PO BID PRN (Reason: agitation) 0RF hydroxyzine HCl 50 mg Tablet 50 mg PO QID PRN (Reason: Anxiety) 30 Days Qty: 120 0RF ibuprofen 600 mg Tablet 600 mg PO Q6H PRN (Reason: Mild Pain (Scale Score 1-4)) 0RF fluoxetine 20 mg Capsule 40 mg PO DAILY 30 Days Qty: 60 0RF prazosin 1 mg Capsule 4 mg PO BEDTIME 30 Days Qty: 120 0RF Protocol: Hold for SBP< HOLD for SBP < : 90 mirtazapine 7.5 mg Tablet 7.5 mg PO BEDTIME MRX1 30 Days Qty: 60 0RF lisinopril 5 mg tablet 1 tab PO DAILY 0RF nicotine 21 mg/24 hr Patch 24 Hour 1 patch TRANSDERMAL DAILY PRN (Reason: Nicotine Cravings) 0RF
[2022-01-09 20:51] VITALS: BP 140/90; BP 151/91; PULSE 111; PULSE 115; RESP 22; TEMP 36.9; O2SAT 96; O2SAT 98; BMI 37.9
--- NOTE | 2022-01-09 21:03 | PC.NURSE ---
pt a&o, no sob or chest pain. pt changed over and 1:1. Will continue monitor.
[2022-01-09 22:35] VITALS: BP 138/87; PULSE 91; RESP 14; TEMP 37; O2SAT 96
--- NOTE | 2022-01-10 10:01 | MHC.CARE ---
Pt is a 45 y/o single, , Portuguese speaking, female, who is previously known to the CARE Team through prior assessments, ED visits and in patient stays.? Yesterday, she was transported to this facility for a second time that day after reporting hearing voices and cutting herself ?All over my body?. Pt has been medically cleared and is being screened for risk by the CARE Team to determine appropriate treatment recommendations. Pt has an extensive hx of inpt hospitalizations. Past documented hx of Major depressive d/o,?PTSD, and Borderline personality d/o. Pt has a hx of self-harm and suicide attempts. Pt is alert and oriented x4 and is assessed by CARE Team in the Main ED.? She is disheveled in appearance and appears older than her stated age.? Pt's eye contact and speech are within normal limits.? She reports good sleep last night and reports her appetite as good.? She describes her mood as ?better? reporting that she is no longer hearing voices and that they ?Come in waves.? Pt's displays a full range of affect.? She reports hearing voices yesterday evening, which prompted her behavior.? She stated that after she was discharged yesterday, she returned as the voices ?Came back.?? She denies SI, , HI and self-harm urges.? No thoughts of harm to others.? Insight, judgement, memory and concentration appear good. Pt's functioning today appears to be at her baseline.? She reports no auditory hallucinations, which are ever present to varying degrees at her baseline.? CARE Team discussed using some of the intervention techniques she has learned to help cope with her voices.? She also discussed using some of the yoga breathing, poses, and exercises to help occupy her/calm her thoughts when her voices return.? Pt stated she has not heard any voices during Yoga class. Pt will be occupying her day with cleaning her room, listening to music, ?Hanging out? with her favorite staff person Radha, watching a movie and working out.? The plan is for pt to be discharged back to the assisted.? CARE Team will secure a ride for pt.? This disposition was discussed with and agreed upon by ED Provider Caleb. CARE Team contacted the assisted to advise them that pt will be discharged back to the assisted.? CARE Team with secure a Lyft for pt. CARE Team will conduct a follow up phone call this afternoon to check on the pt. F33.0 - Major depressive d/o, recurrent episode, mild, F43.10 - Post Traumatic Stress d/o, F60.3 - Borderline personality d/o Safety plan Step 1: Warning signs: ? 1.? Command Hallucinations that Occur Mostly at night? 2.? Nights are difficult for Lucita??? 3.? Step 2:? Internal Coping Strategies: 1.? Hang out with staff and watch TV ? 2.? Yoga Poses & Working Out? 3.? Listen to music, type on computer (goal setting)? Step 3:? People and social settings that can provide distraction: 1.? Name Favorite staff members? Radha?? Phone? 2.? Name [facility] worker?Phone ? 3.? Place ??? 4.? Place?Step 4: People whom I can ask for help: ? 1.? Name Long-Term staff? Phone ? 2.? Name? Phone ? 3.? Name? Phone ?Step 5: Professionals or agencies I can contact during a crisis: ??? 1.? Clinician Name Long-Term staff?Phone ? 2.? Clinician Name? ?? Phone ? 3.? Suicide Prevention Lifeline: 1-887-113-ZFGK (8585) 4.? Crisis Text Line: Text HOME to 719-732 5.? Local Emergency Service Phone/Address: Step 6: Making the environment safe: ? 1.? Removing breakable items/items you can cut/harm yourself with ? 2.? CARE Team will follow up with a phone call to check in this afternoon.??? Reproduced with permission (? 2013 [employer]). [email or web address]zman [employer] Julián [employer] (2012). Safety planning intervention: A brief intervention to mitigate suicide risk. Cognitive and Behavioral Practice, 19, 256-264
[2022-01-10 10:04] VITALS: BP 135/71; PULSE 82; RESP 20
== END 2022-01-10 10:28 | disposition home or self-care (01) ==
PROVIDERS: Emergency Provider Emergency Medicine
DX: F60.3 Borderline personality disorder (principal); F32.A Depression, unspecified; R45.851 Suicidal ideations; F43.10 Post-traumatic stress disorder, unspecified; E11.9 Type 2 diabetes mellitus without complications; F17.200 Nicotine dependence, unspecified, uncomplicated; Z79.899 Other long term (current) drug therapy
CPT/HCPCS: 99284; 99285

== ENCOUNTER 2022-01-10 17:29 | Emergency (ER) | payer MEDICARE, MEDICAID, SELFPAY ==
[2022-01-10 17:38] VITALS: BP 130/83; BP 140/87; PULSE 112; RESP 18; TEMP 37.3; O2SAT 96; BMI 40.9
--- NOTE | 2022-01-10 17:47 | ED.PSYCH ---
HPI - Psych General Chief Complaint: Psychiatric Symptoms Stated Complaint: Si, behavioral Time Seen by Provider: 01/10/22 17:47 Source: patient Mode of arrival: EMS Limitations: no limitations History of Present Illness HPI Narrative: Patient with bipolar disorder PTSD been here multiple times was seen here earlier today comes back again for hearing really voices asking her to kill herself telling her to continually had cells per official scratches on abdominal wall. Related Data Home Medications Medication Instructions Recorded Confirmed polyethylene glycol 3350 17 gram 17 g PO DAILY PRN 02/12/21 01/08/22 oral powder packet (Miralax) atorvastatin 10 mg tablet 1 tab PO DAILY 05/29/21 01/08/22 ferrous sulfate 325 mg (65 mg 1 tab PO DAILY 05/29/21 01/08/22 iron) tablet,delayed release fluticasone propionate 110 2 puff INHALATION BID 05/29/21 01/08/22 mcg/actuation HFA aerosol inhaler (Flovent HFA) metformin 500 mg tablet 1 tab PO BID 05/29/21 01/08/22 montelukast 10 mg tablet 1 tab PO BEDTIME 05/29/21 01/08/22 norethindrone (contraceptive) 0.35 0.35 mg PO DAILY 05/29/21 01/08/22 mg tablet (Deblitane) pantoprazole 40 mg tablet,delayed 1 tab PO BID@0630,1630 05/29/21 01/08/22 release verapamil 240 mg tablet,extended 1 tab PO BEDTIME 05/29/21 01/08/22 release albuterol sulfate 90 mcg/actuation 2 puff INHALATION Q4H PRN 06/15/21 01/08/22 aerosol inhaler (Ventolin HFA) ibuprofen 600 mg tablet 600 mg PO Q6H PRN 09/19/21 01/08/22 trazodone 150 mg tablet 150 mg PO BEDTIME PRN 11/05/21 01/08/22 clonazepam 0.5 mg tablet 0.5 mg PO QID PRN 11/11/21 01/08/22 lisinopril 5 mg tablet 1 tab PO DAILY 11/14/21 01/08/22 nicotine 21 mg/24 hr daily 1 patch TRANSDERMAL DAILY PRN 11/14/21 01/08/22 transdermal patch benztropine 1 mg tablet 1 mg PO QAM 12/26/21 01/08/22 chlorpromazine 25 mg tablet 75 mg PO BID PRN 12/26/21 01/08/22 chlorpromazine 25 mg tablet 75 mg PO QAM 12/26/21 01/08/22 Previous Rx's Medication Instructions Recorded hydroxyzine HCl 50 mg tablet 50 mg PO QID PRN 30 Days #120 tab 07/27/21 fluoxetine 20 mg capsule 40 mg PO DAILY 30 Days #60 cap 09/29/21 mirtazapine 7.5 mg tablet 7.5 mg PO BEDTIME MRX1 30 Days #60 10/18/21 tab prazosin 1 mg capsule 4 mg PO BEDTIME 30 Days #120 cap 10/18/21 Allergies Allergy/AdvReac Type Severity Reaction Status Date / Time Fish Containing Products Allergy Severe ANAPHYLAXIS Verified 11/14/21 08:35 codeine [Codeine] Allergy Unknown RASH Verified 11/14/21 08:35 Penicillins Allergy Unknown RASH Verified 11/14/21 08:35 prednisone [Prednisone] Allergy Unknown RASH Verified 11/14/21 08:35 Sulfa (Sulfonamide Allergy Unknown RASH Verified 11/14/21 08:35 Antibiotics) [Sulfa (Sulfonamides)] azithromycin [AZITHROMYCIN] AdvReac Severe RASH Verified 11/14/21 08:35 nicotine AdvReac Unknown HEART Verified 11/14/21 08:35 PALPITATION TO NICOTINE GUM Seafood Allergy Severe ANAPHYLAXIS Uncoded 11/05/21 21:13 From Geodon Allergy Unknown DYSURIA, Uncoded 11/05/21 21:13 RASH Review of Systems Review of Systems: Yes all other systems are reviewed and are negative PMFSH Past Medical History Medical History Bronchitis Diabetes type 2, controlled GERD (gastroesophageal reflux disease) Hyperlipidemia MDD (major depressive disorder), recurrent episode, severe Mood disorder Overdose PTSD (post-traumatic stress disorder) Social History Social History 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: None 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 Other:: Patient lives in senior living. 4 in total live in senior living. Housing: Other Housing Other:: nursing home Do you presently have visiting nurse or other home services: No (Medication administered by senior living staff) Unable to assess alcohol history related to: Unknown Alcohol intake: never Patient Tobacco Use Status: Current everyday Tobacco user Tobacco use type: Cigarette Cigarette Packs Per Day: 1 Cigarettes Per Day: 20 Years Smoked: 20 e-Cigarette/Vaping Use: Never Used Second Hand Smoke Exposure: Yes Substance Use Type: Caffiene Advance Directives: No Advance Directives Information Provided: No Patient : No service: No Sexual orientation: Don't Know Physical Exam Vital Signs: Vital Signs: Last Vital Signs Temp 99.2 F 01/10/22 17:38 Pulse 112 H 01/10/22 17:38 Resp 18 01/10/22 17:38 BP 140/87 H 01/10/22 17:38 Pulse Ox 96 01/10/22 17:38 BMI result Body Mass Index 40.9 Appearance: Alert. Oriented X3. No acute distress. Very anxious denies any suicidal ideation at this time Eyes: PERRLA, No Nystagmus ENT: Pharynx normal. Oral Mucosa moist Neck: Normal inspection. Neck supple. CVS: Normal heart rate and rhythm. Pulses normal. Respiratory: No respiratory distress. Equal air entry bilateral, no wheezing/rales/rhonchi Abdomen: Soft and nontender. Bowel sounds are present, no mass palpable, no CVA tenderness Skin: Skin warm and dry. Normal skin color. Normal skin turgor. Extremities: No lower extremity edema. No calf tenderness psych: Anxious denies SI/HI at this time no hallucination at this time Neuro: Oriented X 3. No motor deficit. No sensory deficit.No cerebellar signs , cranial nerves II-XII intact MDM - Psych MDM Narrative Medical decision making narrative: Patient with PTSD/anxiety seen by care team will discharge patient home p.m. multiple times for same Lab Data Labs: Lab Results 01/10/22 Range/Units 18:14 COVID-19 (NICK) Negative (Negative) COVID-19 Clin Com See Note Discharge Plan Discharge Clinical Impression: Borderline personality disorder, PTSD (post-traumatic stress disorder) Patient Disposition: Home, Self-Care Instructions: Post Traumatic Stress Disorder (ED), Borderline Personality Disorder (DC) Additional Instructions: Taking medication as prescribed and follow-up with therapist Prescriptions: No Action polyethylene glycol 3350 [Miralax] 17 gram Powder In Packet 17 g PO DAILY PRN (Reason: Constipation) 0RF metformin 500 mg tablet 1 tab PO BID 0RF atorvastatin 10 mg tablet 1 tab PO DAILY 0RF pantoprazole 40 mg tablet,delayed release (DR/EC) 1 tab PO BID@0630,1630 0RF verapamil 240 mg tablet extended release 1 tab PO BEDTIME 0RF montelukast 10 mg tablet 1 tab PO BEDTIME 0RF ferrous sulfate 325 mg (65 mg iron) tablet,delayed release (DR/EC) 1 tab PO DAILY 0RF Flovent HFA 110 mcg/actuation HFA aerosol inhaler 2 puff inhalation BID 0RF norethindrone (contraceptive) [Deblitane] 0.35 mg Tablet 0.35 mg PO DAILY 0RF albuterol sulfate [Ventolin HFA] 90 mcg/actuation HFA aerosol inhaler 2 puff inhalation Q4H PRN (Reason: Shortness Of Breath) 0RF trazodone 150 mg tablet 150 mg PO BEDTIME PRN (Reason: insomnia) 0RF clonazepam 0.5 mg tablet 0.5 mg PO QID PRN (Reason: anxiety/AH) 0RF Rx Instructions: may take within 1 hour of each other; max dose 1mg daily benztropine 1 mg tablet 1 mg PO QAM 0RF chlorpromazine 25 mg Tablet 75 mg PO QAM 0RF chlorpromazine 25 mg tablet 75 mg PO BID PRN (Reason: agitation) 0RF hydroxyzine HCl 50 mg Tablet 50 mg PO QID PRN (Reason: Anxiety) 30 Days Qty: 120 0RF ibuprofen 600 mg Tablet 600 mg PO Q6H PRN (Reason: Mild Pain (Scale Score 1-4)) 0RF fluoxetine 20 mg Capsule 40 mg PO DAILY 30 Days Qty: 60 0RF prazosin 1 mg Capsule 4 mg PO BEDTIME 30 Days Qty: 120 0RF Protocol: Hold for SBP< HOLD for SBP < : 90 mirtazapine 7.5 mg Tablet 7.5 mg PO BEDTIME MRX1 30 Days Qty: 60 0RF lisinopril 5 mg tablet 1 tab PO DAILY 0RF nicotine 21 mg/24 hr Patch 24 Hour 1 patch TRANSDERMAL DAILY PRN (Reason: Nicotine Cravings) 0RF Interventions: ED Discharge Assessment Last Done: 01/10/22 20:00 Discharge Date/Time: 01/10/22 21:32
[2022-01-10 18:33] LABS: COVID-19 Test Negative (Negative)
--- NOTE | 2022-01-10 20:02 | MHC.CARE ---
CARE team met with pt to identify stressors that have contributed to her frequent ED visits over the past three evenings. Pt reported that she had been considering taking classes and became overwhelmed with the paperwork, which led to her deciding that she wouldn't pursue school at this time. She expressed that she has been hard on herself and feeling more and more like a failure each day. We discussed the importance of not taking on more than she can handle and that she's showing strength by being able to recognize this. 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 Pt is requesting to discharge from the ED and return home, stating that she plans to relax in her room and go to sleep. She has her Resiliency group with her therapist tomorrow morning at 10am and afterward she plans on spending time with a friend and watching movies. Pt denied SI/HI/AVH at this time. She did not engage in self harm prior to arrival today and denied having any current urges to harm herself. Pt is considered safe for discharge.
== END 2022-01-10 21:32 | disposition home or self-care (01) ==
PROVIDERS: Physician Assistant; Emergency Provider Internal Medicine
DX: F33.1 Major depressive disorder, recurrent, moderate (principal); R45.851 Suicidal ideations; F43.10 Post-traumatic stress disorder, unspecified; F17.210 Nicotine dependence, cigarettes, uncomplicated; Z71.6 Tobacco abuse counseling; Z20.822 Contact with and (suspected) exposure to COVID-19; Z79.899 Other long term (current) drug therapy
CPT/HCPCS: 87635; 99283

== ENCOUNTER 2022-01-13 13:41 | Emergency (ER) | payer MEDICARE, MEDICAID, SELFPAY ==
--- NOTE | 2022-01-13 13:44 | ED_ITS ---
HPI - Psych General Chief Complaint: Psychiatric Symptoms Stated Complaint: crisis Time Seen by Provider: 01/13/22 13:44 Source: patient, EMS and old records reviewed Mode of arrival: EMS Limitations: no limitations History of Present Illness HPI Narrative: 46 y/o female with history of PTSD, borderline personality disorder, with frequent visits to the ER for auditory hallucinations and self harm behaviors presents to the ER today from her senior living c/o auditory hallucinations telling her to hurt herself. She has not cut her self in a several days. She states panicked and now wants to go back home. She denies SI or HI at this time and has been compliant with all of her medications. MD complaint: hallucinations Onset (ago): unknown Duration: intermittent History of same: Yes Relieving factors: none Exacerbating factors: none Associated psychiatric symptoms: depression and auditory hallucinations Associated symptoms: denies other symptoms Treatments prior to arrival: none If self harm: admits thoughts of self harm and has plan Details of plan: cut herself Related Data Home Medications Medication Instructions Recorded Confirmed polyethylene glycol 3350 17 gram 17 g PO DAILY PRN 02/12/21 01/13/22 oral powder packet (Miralax) atorvastatin 10 mg tablet 1 tab PO DAILY 05/29/21 01/13/22 ferrous sulfate 325 mg (65 mg 1 tab PO DAILY 05/29/21 01/13/22 iron) tablet,delayed release fluticasone propionate 110 2 puff INHALATION BID 05/29/21 01/13/22 mcg/actuation HFA aerosol inhaler (Flovent HFA) metformin 500 mg tablet 1 tab PO BID 05/29/21 01/13/22 montelukast 10 mg tablet 1 tab PO BEDTIME 05/29/21 01/13/22 norethindrone (contraceptive) 0.35 0.35 mg PO DAILY 05/29/21 01/13/22 mg tablet (Deblitane) pantoprazole 40 mg tablet,delayed 1 tab PO BID@0630,1630 05/29/21 01/13/22 release verapamil 240 mg tablet,extended 1 tab PO BEDTIME 05/29/21 01/13/22 release albuterol sulfate 90 mcg/actuation 2 puff INHALATION Q4H PRN 06/15/21 01/13/22 aerosol inhaler (Ventolin HFA) ibuprofen 600 mg tablet 600 mg PO Q6H PRN 09/19/21 01/13/22 trazodone 150 mg tablet 150 mg PO BEDTIME PRN 11/05/21 01/13/22 clonazepam 0.5 mg tablet 0.5 mg PO QID PRN 11/11/21 01/13/22 lisinopril 5 mg tablet 1 tab PO DAILY 11/14/21 01/08/22 nicotine 21 mg/24 hr daily 1 patch TRANSDERMAL DAILY PRN 11/14/21 01/13/22 transdermal patch benztropine 1 mg tablet 1 mg PO QAM 12/26/21 01/13/22 chlorpromazine 25 mg tablet 75 mg PO BID PRN 12/26/21 01/13/22 chlorpromazine 25 mg tablet 75 mg PO QAM 12/26/21 01/13/22 Previous Rx's Medication Instructions Recorded hydroxyzine HCl 50 mg tablet 50 mg PO QID PRN 30 Days #120 tab 07/27/21 fluoxetine 20 mg capsule 40 mg PO DAILY 30 Days #60 cap 09/29/21 mirtazapine 7.5 mg tablet 7.5 mg PO BEDTIME MRX1 30 Days #60 10/18/21 tab prazosin 1 mg capsule 4 mg PO BEDTIME 30 Days #120 cap 10/18/21 Allergies Allergy/AdvReac Type Severity Reaction Status Date / Time Fish Containing Products Allergy Severe ANAPHYLAXIS Verified 11/14/21 08:35 codeine [Codeine] Allergy Unknown RASH Verified 11/14/21 08:35 Penicillins Allergy Unknown RASH Verified 11/14/21 08:35 prednisone [Prednisone] Allergy Unknown RASH Verified 11/14/21 08:35 Sulfa (Sulfonamide Allergy Unknown RASH Verified 11/14/21 08:35 Antibiotics) [Sulfa (Sulfonamides)] azithromycin [AZITHROMYCIN] AdvReac Severe RASH Verified 11/14/21 08:35 nicotine AdvReac Unknown HEART Verified 11/14/21 08:35 PALPITATION TO NICOTINE GUM Seafood Allergy Severe ANAPHYLAXIS Uncoded 11/05/21 21:13 From Geodon Allergy Unknown DYSURIA, Uncoded 11/05/21 21:13 RASH Review of Systems Review of Systems: Constitutional: No Fever, No Chills ENT/Mouth: No sore throat, No Rhinorrhea, No Swallowing Difficulty Eyes: No Eye Pain, No Swelling, No Redness Cardiovascular: No Chest Pain, No SOB, No Orthopnea, No Edema Respiratory: No Cough, No Sputum, No Wheezing, No dyspnea Gastrointestinal: No Nausea, No Vomiting, No Diarrhea, No abdominal Pain Genitourinary: No Dysuria, No Urinary Frequency, No Hematuria Musculoskeletal: No joint pain, No Myalgias Skin: No Skin Lesions, No rash Neuro: No Weakness, No Numbness, No Dizziness, No Headache Psych: No Anxiety/Panic, + Depression, No SI, No HI, +AH, No VH Heme/Lymph: No Bruising, No Lymphadenopathy Endocrine: No Polyuria, No Polydipsia [facility] Past Medical History Medical History Bronchitis Diabetes type 2, controlled GERD (gastroesophageal reflux disease) Hyperlipidemia MDD (major depressive disorder), recurrent episode, severe Mood disorder Overdose PTSD (post-traumatic stress disorder) Social History Social History 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: None 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 Other:: Patient lives in senior living. 4 in total live in senior living. Housing: Other Housing Other:: senior living Do you presently have visiting nurse or other home services: No (Medication administered by senior living staff) Unable to assess alcohol history related to: Unknown Alcohol intake: never Patient Tobacco Use Status: Current everyday Tobacco user Tobacco use type: Cigarette Cigarette Packs Per Day: 1 Cigarettes Per Day: 20 Years Smoked: 20 e-Cigarette/Vaping Use: Never Used Second Hand Smoke Exposure: Yes Substance Use Type: Caffiene Advance Directives: Yes Advance Directives Information Provided: Yes Advance Directives on File: No Patient : No service: No Sexual orientation: Don't Know Physical Exam Vital Signs: Vital Signs: Last Vital Signs Temp 98.7 F 01/13/22 13:48 Pulse 89 01/13/22 13:48 Resp 18 01/13/22 13:48 BP 128/69 01/13/22 13:48 Pulse Ox 98 01/13/22 13:48 BMI result Body Mass Index 47.3 Appearance: Alert. Oriented X3. No acute distress. Eyes: Pupils equal, round and reactive to light. ENT: Pharynx normal. Neck: Normal inspection. Neck supple. CVS: Normal heart rate and rhythm. Pulses normal. Respiratory: No respiratory distress. Breath sounds normal. Abdomen: Soft and nontender. +BS x4 Skin: Skin warm and dry. Normal skin color. Normal skin turgor. No rashes. Extremities: bilateral upper extremities with superficial linear lacerations to the dorsal aspects with several scars in similar fashion, [place] Intact distally. no [place] Neuro/psych: No lower extremity edema.No sensory deficit. CN II-XII intact. flat affect, depressed. not suicidal. MDM - Psych Lab Data Labs: Lab Results 01/13/22 Range/Units 15:09 COVID-19 (NICK) Negative (Negative) COVID-19 Clin Com See Note Discharge Plan Discharge Clinical Impression: Auditory hallucinations Patient Disposition: Home, Self-Care Instructions: Psychiatric Hallucinations (ED) Additional Instructions: Take all of your medications as prescribed Follow-up with your doctor & therapist soon as possible Prescriptions: No Action polyethylene glycol 3350 [Miralax] 17 gram Powder In Packet 17 g PO DAILY PRN (Reason: Constipation) 0RF metformin 500 mg tablet 1 tab PO BID 0RF atorvastatin 10 mg tablet 1 tab PO DAILY 0RF pantoprazole 40 mg tablet,delayed release (DR/EC) 1 tab PO BID@0630,1630 0RF verapamil 240 mg tablet extended release 1 tab PO BEDTIME 0RF montelukast 10 mg tablet 1 tab PO BEDTIME 0RF ferrous sulfate 325 mg (65 mg iron) tablet,delayed release (DR/EC) 1 tab PO DAILY 0RF Flovent HFA 110 mcg/actuation HFA aerosol inhaler 2 puff inhalation BID 0RF norethindrone (contraceptive) [Deblitane] 0.35 mg Tablet 0.35 mg PO DAILY 0RF albuterol sulfate [Ventolin HFA] 90 mcg/actuation HFA aerosol inhaler 2 puff inhalation Q4H PRN (Reason: Shortness Of Breath) 0RF trazodone 150 mg tablet 150 mg PO BEDTIME PRN (Reason: insomnia) 0RF clonazepam 0.5 mg tablet 0.5 mg PO QID PRN (Reason: anxiety/AH) 0RF Rx Instructions: may take within 1 hour of each other; max dose 1mg daily benztropine 1 mg tablet 1 mg PO QAM 0RF chlorpromazine 25 mg Tablet 75 mg PO QAM 0RF chlorpromazine 25 mg tablet 75 mg PO BID PRN (Reason: agitation) 0RF hydroxyzine HCl 50 mg Tablet 50 mg PO QID PRN (Reason: Anxiety) 30 Days Qty: 120 0RF ibuprofen 600 mg Tablet 600 mg PO Q6H PRN (Reason: Mild Pain (Scale Score 1-4)) 0RF fluoxetine 20 mg Capsule 40 mg PO DAILY 30 Days Qty: 60 0RF prazosin 1 mg Capsule 4 mg PO BEDTIME 30 Days Qty: 120 0RF Protocol: Hold for SBP< HOLD for SBP < : 90 mirtazapine 7.5 mg Tablet 7.5 mg PO BEDTIME MRX1 30 Days Qty: 60 0RF lisinopril 5 mg tablet 1 tab PO DAILY 0RF nicotine 21 mg/24 hr Patch 24 Hour 1 patch TRANSDERMAL DAILY PRN (Reason: Nicotine Cravings) 0RF Interventions: ED Discharge Assessment Last Done: 01/13/22 15:58
[2022-01-13 13:48] VITALS: BP 128/69; BP 176/100; PULSE 86; PULSE 89; RESP 18; TEMP 37.1; O2SAT 97; O2SAT 98; BMI 47.3
[2022-01-13 15:45] LABS: IDNOW Serial# 16C4AD1C
[2022-01-13 15:46] LABS: COVID-19 Test Negative (Negative)
--- NOTE | 2022-01-13 15:51 | MHC.CARE ---
Pt met with CARE team for a risk screening. Pt explains that she was feeling suicidal and that is why she came to the ED, she did not self harm. Pt is sitting in the common area of the pod and shares that she is becoming increasingly anxious while being here in the ED due to the acuity in the ED. Pt reports she feels currently anxious and wants to d/c. Pt states that her plan is to go back to the intermediate and she plans on watching tv and hanging out with staff. Pt states that she is looking forward to returning home, denies current SI, endorses AH which is baseline for her and she appears anxious being here. Pt was provided with a lyft and will be discharged.
== END 2022-01-13 15:59 | disposition home or self-care (01) ==
PROVIDERS: Physician Assistant; Emergency Provider Emergency Medicine
DX: R44.0 Auditory hallucinations (principal); R45.851 Suicidal ideations; F41.9 Anxiety disorder, unspecified; Z20.822 Contact with and (suspected) exposure to COVID-19; F32.A Depression, unspecified; F43.10 Post-traumatic stress disorder, unspecified; F60.3 Borderline personality disorder; E11.9 Type 2 diabetes mellitus without complications; E78.5 Hyperlipidemia, unspecified; F17.200 Nicotine dependence, unspecified, uncomplicated; Z79.899 Other long term (current) drug therapy; Z79.02 Long term (current) use of antithrombotics/antiplatelets
CPT/HCPCS: 87635; 99283

== ENCOUNTER 2022-01-14 13:31 | Emergency (ER) | payer MEDICARE, MEDICAID, SELFPAY ==
[2022-01-14 13:37] VITALS: BMI 38.0
[2022-01-14 13:42] VITALS: BP 125/88; PULSE 101; RESP 18; TEMP 37.4; O2SAT 97
--- NOTE | 2022-01-14 13:50 | ED.PSYCH ---
HPI - Psych General Chief Complaint: Psychiatric Symptoms Stated Complaint: crisis Time Seen by Provider: 01/14/22 13:50 Source: patient Mode of arrival: EMS Limitations: no limitations History of Present Illness MD complaint: suicidal ideation, feels depressed and hallucinations Onset (ago): day(s) (1) Duration: intermittent History of same: Yes Relieving factors: none Exacerbating factors: none Context: significant life stressor Associated psychiatric symptoms: depression, suicidal ideation and auditory hallucinations Associated symptoms: denies other symptoms Treatments prior to arrival: none If self harm: admits thoughts of self harm and has plan Related Data Home Medications Medication Instructions Recorded Confirmed polyethylene glycol 3350 17 gram 17 g PO DAILY PRN 02/12/21 01/13/22 oral powder packet (Miralax) atorvastatin 10 mg tablet 1 tab PO DAILY 05/29/21 01/13/22 ferrous sulfate 325 mg (65 mg 1 tab PO DAILY 05/29/21 01/13/22 iron) tablet,delayed release fluticasone propionate 110 2 puff INHALATION BID 05/29/21 01/13/22 mcg/actuation HFA aerosol inhaler (Flovent HFA) metformin 500 mg tablet 1 tab PO BID 05/29/21 01/13/22 montelukast 10 mg tablet 1 tab PO BEDTIME 05/29/21 01/13/22 norethindrone (contraceptive) 0.35 0.35 mg PO DAILY 05/29/21 01/13/22 mg tablet (Deblitane) pantoprazole 40 mg tablet,delayed 1 tab PO BID@0630,1630 05/29/21 01/13/22 release verapamil 240 mg tablet,extended 1 tab PO BEDTIME 05/29/21 01/13/22 release albuterol sulfate 90 mcg/actuation 2 puff INHALATION Q4H PRN 06/15/21 01/13/22 aerosol inhaler (Ventolin HFA) ibuprofen 600 mg tablet 600 mg PO Q6H PRN 09/19/21 01/13/22 trazodone 150 mg tablet 150 mg PO BEDTIME PRN 11/05/21 01/13/22 clonazepam 0.5 mg tablet 0.5 mg PO QID PRN 11/11/21 01/13/22 lisinopril 5 mg tablet 1 tab PO DAILY 11/14/21 01/08/22 nicotine 21 mg/24 hr daily 1 patch TRANSDERMAL DAILY PRN 11/14/21 01/13/22 transdermal patch benztropine 1 mg tablet 1 mg PO QAM 12/26/21 01/13/22 chlorpromazine 25 mg tablet 75 mg PO BID PRN 12/26/21 01/13/22 chlorpromazine 25 mg tablet 75 mg PO QAM 12/26/21 01/13/22 Previous Rx's Medication Instructions Recorded hydroxyzine HCl 50 mg tablet 50 mg PO QID PRN 30 Days #120 tab 07/27/21 fluoxetine 20 mg capsule 40 mg PO DAILY 30 Days #60 cap 09/29/21 mirtazapine 7.5 mg tablet 7.5 mg PO BEDTIME MRX1 30 Days #60 10/18/21 tab prazosin 1 mg capsule 4 mg PO BEDTIME 30 Days #120 cap 10/18/21 Allergies Allergy/AdvReac Type Severity Reaction Status Date / Time Fish Containing Products Allergy Severe ANAPHYLAXIS Verified 11/14/21 08:35 codeine [Codeine] Allergy Unknown RASH Verified 11/14/21 08:35 Penicillins Allergy Unknown RASH Verified 11/14/21 08:35 prednisone [Prednisone] Allergy Unknown RASH Verified 11/14/21 08:35 Sulfa (Sulfonamide Allergy Unknown RASH Verified 11/14/21 08:35 Antibiotics) [Sulfa (Sulfonamides)] azithromycin [AZITHROMYCIN] AdvReac Severe RASH Verified 11/14/21 08:35 nicotine AdvReac Unknown HEART Verified 11/14/21 08:35 PALPITATION TO NICOTINE GUM Seafood Allergy Severe ANAPHYLAXIS Uncoded 11/05/21 21:13 From Geodon Allergy Unknown DYSURIA, Uncoded 11/05/21 21:13 RASH Review of Systems Review of Systems: Constitutional : No Fever, No Chills ENT/Mouth : No Ear Pain, No Nasal Congestion, No sore throat Eyes: No Eye Pain, No Swelling, No Redness Cardiovascular : No Chest Pain, No SOB Respiratory : No Cough, No Sputum, No Dyspnea Gastrointestinal : No Nausea, No Vomiting, No Diarrhea, No Hematochezia, No Melena Genitourinary : No Dysuria, No Urinary Frequency, No Hematuria Musculoskeletal : No Myalgias Skin : No Skin Lesions, No rash Neuro : No Weakness, No Numbness, No Paresthesias, No Dizziness, No Headache Psych : positive Anxiety, positive Depression, positive SI no HI, pos AH Heme/Lymph: No Lymphadenopathy Endocrine : No Polyuria, No Polydipsia All other systems reviewed and are negative [facility] Past Medical History Attestation statement: The following information was validated with the patient. Medical History Bronchitis Diabetes type 2, controlled GERD (gastroesophageal reflux disease) Hyperlipidemia MDD (major depressive disorder), recurrent episode, severe Mood disorder Overdose PTSD (post-traumatic stress disorder) Social History Social History 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: None 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 Other:: Patient lives in nursing home. 4 in total live in nursing home. Housing: Other Housing Other:: shelter Do you presently have visiting nurse or other home services: No (Medication administered by nursing home staff) Unable to assess alcohol history related to: Unknown Alcohol intake: never Patient Tobacco Use Status: Current everyday Tobacco user Tobacco use type: Cigarette Cigarette Packs Per Day: 1 Cigarettes Per Day: 20 Years Smoked: 20 e-Cigarette/Vaping Use: Never Used Second Hand Smoke Exposure: Yes Substance Use Type: Caffiene Advance Directives: No Advance Directives Information Provided: No Patient : No service: No Sexual orientation: Don't Know Physical Exam Vital Signs: Vital Signs: Last Vital Signs Temp 99.4 F 01/14/22 13:42 Pulse 101 H 01/14/22 13:42 Resp 18 01/14/22 13:42 BP 125/88 01/14/22 13:42 Pulse Ox 97 01/14/22 13:42 BMI result Body Mass Index 38.0 Appearance: Alert. Oriented X3. No acute distress. Anxious Eyes: Pupils equal, round and reactive to light. ENT: Pharynx normal. Neck: Normal inspection. Neck supple. CVS: Normal heart rate and rhythm. Pulses normal. Respiratory: No respiratory distress. Breath sounds normal. Abdomen: Soft and non-tender. Skin: Skin warm and dry. Normal skin color. Normal skin turgor. Extremities: No lower extremity edema. Neuro: Oriented X 3. No motor deficit. No sensory deficit. CN 2-12 intact MDM - Psych MDM Narrative Medical decision making narrative: 46 yo female well known to us comes in with c/o SI and AH plans to harm herself again has no injuries at this time. Plan in place with CARE team - will order COVID swab, PO ativan and CARE team consult Lab Data Labs: Lab Results 01/14/22 Range/Units 14:04 COVID-19 (NICK) Negative (Negative) COVID-19 Clin Com See Note Discharge Plan Discharge Clinical Impression: Depression Patient Disposition: Still a Patient Instructions: Depression (ED) Additional Instructions: return to ED for any worsening symptoms or concerns please follow up with your providers Prescriptions: No Action polyethylene glycol 3350 [Miralax] 17 gram Powder In Packet 17 g PO DAILY PRN (Reason: Constipation) 0RF metformin 500 mg tablet 1 tab PO BID 0RF atorvastatin 10 mg tablet 1 tab PO DAILY 0RF pantoprazole 40 mg tablet,delayed release (DR/EC) 1 tab PO BID@0630,1630 0RF verapamil 240 mg tablet extended release 1 tab PO BEDTIME 0RF montelukast 10 mg tablet 1 tab PO BEDTIME 0RF ferrous sulfate 325 mg (65 mg iron) tablet,delayed release (DR/EC) 1 tab PO DAILY 0RF Flovent HFA 110 mcg/actuation HFA aerosol inhaler 2 puff inhalation BID 0RF norethindrone (contraceptive) [Deblitane] 0.35 mg Tablet 0.35 mg PO DAILY 0RF albuterol sulfate [Ventolin HFA] 90 mcg/actuation HFA aerosol inhaler 2 puff inhalation Q4H PRN (Reason: Shortness Of Breath) 0RF trazodone 150 mg tablet 150 mg PO BEDTIME PRN (Reason: insomnia) 0RF clonazepam 0.5 mg tablet 0.5 mg PO QID PRN (Reason: anxiety/AH) 0RF Rx Instructions: may take within 1 hour of each other; max dose 1mg daily benztropine 1 mg tablet 1 mg PO QAM 0RF chlorpromazine 25 mg Tablet 75 mg PO QAM 0RF chlorpromazine 25 mg tablet 75 mg PO BID PRN (Reason: agitation) 0RF hydroxyzine HCl 50 mg Tablet 50 mg PO QID PRN (Reason: Anxiety) 30 Days Qty: 120 0RF ibuprofen 600 mg Tablet 600 mg PO Q6H PRN (Reason: Mild Pain (Scale Score 1-4)) 0RF fluoxetine 20 mg Capsule 40 mg PO DAILY 30 Days Qty: 60 0RF prazosin 1 mg Capsule 4 mg PO BEDTIME 30 Days Qty: 120 0RF Protocol: Hold for SBP< HOLD for SBP < : 90 mirtazapine 7.5 mg Tablet 7.5 mg PO BEDTIME MRX1 30 Days Qty: 60 0RF lisinopril 5 mg tablet 1 tab PO DAILY 0RF nicotine 21 mg/24 hr Patch 24 Hour 1 patch TRANSDERMAL DAILY PRN (Reason: Nicotine Cravings) 0RF
[2022-01-14] MEDS: LORazepam 1 MG TABLET PO (14:01)
[2022-01-14 14:25] LABS: COVID-19 Test Negative (Negative); IDNOW Serial# 16C4AD1C
--- NOTE | 2022-01-14 19:27 | PC.NURSE ---
Care assumed at this time, report from Ros CARDOSO. Seen by CARE, awaiting dispo plan at this time.
--- NOTE | 2022-01-14 19:40 | MHC.CARE ---
CARE team met w pt in the pod. Pt was observed in common areas pacing and speaking with staff. Per ED staff, pt asking to speak with CARE team specifically and provided conflicting statements about wanting to leave or later asking to stay. CARE was informed that pt made superficial cuts to her forearm. When t/w met w pt she appeared anxious and speech was mumbled and slightly pressured. Pt was rocking her body while speaking and stated she cut myself because I was triggered by seeing xxx (patient name who is located in pod). Pt then began to state how she just wants to leave now . She commented how she was having urges to self harm while at the assisted and asked to come to the ED. She is aware of her care plan and stated she finds her reward system at the assisted to be positive because she gets to have a pizza democrat if not admitted. Pt and t/w discussed items from her care plan and some distress tolerance exercises. Pt was observed to be somewhat distracted and rushing the process and not able to fully participate in a safety plan at this time and perhaps might benefit from rest overnight and check in with care in am. T/w called pts assisted and they were open to any plan the ED suggested in her best interest. They stated that she did not engage in self injury at home but did request to go to the ED.
--- NOTE | 2022-01-14 22:46 | MHC.CARE ---
CARE team met w pt again and reviewed safety plan. Pt was able to verbalize the steps and identify contacts for when she feels her sxs escalate or when she feels unsafe. T/s and pt practiced and reviewed DBT worksheet together to help her take home for distress tolerance when feeling urges to self harm. Pt verbalized how she felt much better , denied feeling urges to self harm and denied feeling suicidal or aggressive. Pt voiced how she felt less anxious at the idea of being home (at ) as compared to being in the ED with the stimulation here. Pt presented with calm and childlike jovial affect while awaiting her Lift ride home. Pt was pleased to dc and was appreciative of the staff today. ED provider in agreement with pt plan to dc.
== END 2022-01-14 21:10 | disposition home or self-care (01) ==
PROVIDERS: Emergency Provider Emergency Medicine; PCP Nurse Practitioner Family
DX: F32.A Depression, unspecified (principal); R45.851 Suicidal ideations; R44.0 Auditory hallucinations; S51.812A Laceration without foreign body of left forearm, initial encounter; X78.1XXA Intentional self-harm by knife, initial encounter; F17.200 Nicotine dependence, unspecified, uncomplicated; Z20.822 Contact with and (suspected) exposure to COVID-19; Z79.02 Long term (current) use of antithrombotics/antiplatelets; Z79.899 Other long term (current) drug therapy; Y93.89 Activity, other specified; Y92.230 Patient room in hospital as the place of occurrence of the external cause; Y99.8 Other external cause status
CPT/HCPCS: 87635; 99284; 99285

== ENCOUNTER 2022-01-15 09:34 | Emergency (ER) | payer MEDICARE, MEDICAID, SELFPAY ==
[2022-01-15 10:23] VITALS: BP 132/92; BP 141/76; PULSE 80; PULSE 98; RESP 18; TEMP 36.8; O2SAT 92; O2SAT 98; BMI 37.9
--- NOTE | 2022-01-15 10:23 | ED.PSYCH ---
HPI - Psych General Chief Complaint: Wound/Laceration Stated Complaint: crisis Time Seen by Provider: 01/15/22 10:23 Source: patient and EMS Mode of arrival: EMS Limitations: no limitations History of Present Illness HPI Narrative: 46-year-old female with a past medical history of PTSD, borderline personality disorder who frequently visits the ER for self-injury hewitt/anxiety/depression/auditory hallucinations and visual hallucinations and suicidal ideations no plan in place presenting to the ED via EMS with complaints of ?I want to ?. [facility]. She has multiple self injury hewitt to bilateral forearms and abdomen. She reports that she is up-to-date on tetanus. She does not have an actual plan for SI. She denies any other complaints concerns at this time. She denies any drug or alcohol usage. She was seen here yesterday and cleared and [facility] back [facility] the [facility]. MD complaint: suicidal ideation, feels depressed and anxiety Onset (ago): day(s) (1) Duration: constant and getting worse History of same: Yes Relieving factors: none Exacerbating factors: none Associated psychiatric symptoms: depression, suicidal ideation, racing thoughts, auditory hallucinations and visual hallucinations Associated symptoms: denies other symptoms Treatments prior to arrival: none If self harm: admits thoughts of self harm and self-inflicted trauma (Multiple self-injury hewitt to bilateral arms) Related Data Home Medications Medication Instructions Recorded Confirmed polyethylene glycol 3350 17 gram 17 g PO DAILY PRN 02/12/21 01/13/22 oral powder packet (Miralax) atorvastatin 10 mg tablet 1 tab PO DAILY 05/29/21 01/13/22 ferrous sulfate 325 mg (65 mg 1 tab PO DAILY 05/29/21 01/13/22 iron) tablet,delayed release fluticasone propionate 110 2 puff INHALATION BID 05/29/21 01/13/22 mcg/actuation HFA aerosol inhaler (Flovent HFA) metformin 500 mg tablet 1 tab PO BID 05/29/21 01/13/22 montelukast 10 mg tablet 1 tab PO BEDTIME 05/29/21 01/13/22 norethindrone (contraceptive) 0.35 0.35 mg PO DAILY 05/29/21 01/13/22 mg tablet (Deblitane) pantoprazole 40 mg tablet,delayed 1 tab PO BID@0630,1630 05/29/21 01/13/22 release verapamil 240 mg tablet,extended 1 tab PO BEDTIME 05/29/21 01/13/22 release albuterol sulfate 90 mcg/actuation 2 puff INHALATION Q4H PRN 06/15/21 01/13/22 aerosol inhaler (Ventolin HFA) ibuprofen 600 mg tablet 600 mg PO Q6H PRN 09/19/21 01/13/22 trazodone 150 mg tablet 150 mg PO BEDTIME PRN 11/05/21 01/13/22 clonazepam 0.5 mg tablet 0.5 mg PO QID PRN 11/11/21 01/13/22 lisinopril 5 mg tablet 1 tab PO DAILY 11/14/21 01/08/22 nicotine 21 mg/24 hr daily 1 patch TRANSDERMAL DAILY PRN 11/14/21 01/13/22 transdermal patch benztropine 1 mg tablet 1 mg PO QAM 12/26/21 01/13/22 chlorpromazine 25 mg tablet 75 mg PO BID PRN 12/26/21 01/13/22 chlorpromazine 25 mg tablet 75 mg PO QAM 12/26/21 01/13/22 Previous Rx's Medication Instructions Recorded hydroxyzine HCl 50 mg tablet 50 mg PO QID PRN 30 Days #120 tab 07/27/21 fluoxetine 20 mg capsule 40 mg PO DAILY 30 Days #60 cap 09/29/21 mirtazapine 7.5 mg tablet 7.5 mg PO BEDTIME MRX1 30 Days #60 10/18/21 tab prazosin 1 mg capsule 4 mg PO BEDTIME 30 Days #120 cap 10/18/21 Allergies Allergy/AdvReac Type Severity Reaction Status Date / Time Fish Containing Products Allergy Severe ANAPHYLAXIS Verified 11/14/21 08:35 codeine [Codeine] Allergy Unknown RASH Verified 11/14/21 08:35 Penicillins Allergy Unknown RASH Verified 11/14/21 08:35 prednisone [Prednisone] Allergy Unknown RASH Verified 11/14/21 08:35 Sulfa (Sulfonamide Allergy Unknown RASH Verified 11/14/21 08:35 Antibiotics) [Sulfa (Sulfonamides)] azithromycin [AZITHROMYCIN] AdvReac Severe RASH Verified 11/14/21 08:35 nicotine AdvReac Unknown HEART Verified 11/14/21 08:35 PALPITATION TO NICOTINE GUM Seafood Allergy Severe ANAPHYLAXIS Uncoded 11/05/21 21:13 From Geodon Allergy Unknown DYSURIA, Uncoded 11/05/21 21:13 RASH Review of Systems Review of Systems: Constitutional : No Fever, No Chills ENT/Mouth : No Ear Pain, No Nasal Congestion, No sore throat Eyes: No Eye Pain, No Swelling, No Redness Cardiovascular : No Chest Pain, No SOB Respiratory : No Cough, No Sputum, No Dyspnea Gastrointestinal : No ingestions, No Nausea, No Vomiting, No Diarrhea, No Hematochezia, No Melena Genitourinary : No Dysuria, No Urinary Frequency, No Hematuria Musculoskeletal : No Myalgias Skin : No Skin Lesions, No rash Neuro : No Weakness, No Numbness, No Paresthesias, No Dizziness, No Headache Psych : + Anxiety, + Depression, + SI, + thoughts of self injury, No HI, + AVH, Heme/Lymph: No Lymphadenopathy Endocrine : No Polyuria, No Polydipsia Yes all other systems are reviewed and are negative [facility] Past Medical History Attestation statement: The following information was validated with the patient. Medical History Bronchitis Diabetes type 2, controlled GERD (gastroesophageal reflux disease) Hyperlipidemia MDD (major depressive disorder), recurrent episode, severe Mood disorder Overdose PTSD (post-traumatic stress disorder) Social History Social History 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: None 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 Other:: [facility] in [facility]. Housing: Other Housing Other:: intermediate Do you presently have visiting nurse or other home services: No (Medication administered by penitentiary staff) Unable to assess alcohol history related to: Unknown Alcohol intake: never Patient Tobacco Use Status: Current everyday Tobacco user Tobacco use type: Cigarette Cigarette Packs Per Day: 1 Cigarettes Per Day: 20 Years Smoked: 20 e-Cigarette/Vaping Use: Never Used Second Hand Smoke Exposure: Yes Substance Use Type: Caffiene Advance Directives: No Advance Directives Information Provided: No Patient : No service: No Sexual orientation: Don't Know Physical Exam Vital Signs: Vital Signs: Last Vital Signs Temp 98.2 F 01/15/22 10:23 Pulse 80 01/15/22 10:23 Resp 18 01/15/22 10:23 BP 141/76 H 01/15/22 10:23 Pulse Ox 92 01/15/22 10:23 BMI result Body Mass Index 37.9 vital signs have been reviewed as normal and appeared to be correct. Blood pressure 141/76. Heart rate normal. Respiration rate normal. Temperature normal. Oxygen saturation normal. Appearance: Alert. Oriented X3. No acute distress. Head: Normal external exam. Normocephalic. Atraumatic. No Harper signs noted. No raccoon eyes noted Eyes: PERRLA. EOMI. Conjunctiva and sclera normal. Eyelids normal. ENT: Pharynx normal. Uvula midline. Moist mucous membranes. No trismus noted. No drooling noted. No muffled voice noted. Neck: Normal inspection. Neck supple. FROM. No adenopathy. Thyroid Normal. No meningeal signs. No neck mass noted. CVS: Normal heart rate and rhythm. Heart sound normal. No murmurs noted. Pulses normal throughout. Respiratory: No respiratory distress. Painless inspiration. Breath sounds normal. No wheezes/rales/rhonchi noted. Chest nontender. No accessory muscle usage noted or decreased air movement noted. Abdomen: Soft and nontender. Bowel sounds normal in all 4 quadrants. No distention noted. No organomegaly noted. No visible injury noted. Back: Full range of motion noted. Skin: Skin warm and dry. Normal skin color. Normal skin turgor. Patient with multiple self-injury hewitt to bilateral upper extremities/forearms that are very superficial no active bleeding or signs of infection or foreign bodies noted and she does not have any joint tenderness noted. No obvious ligamentous or tendon injury noted anywhere. She also has self-injury hewitt to her abdomen as well they are superficial no signs of infection no active bleeding or foreign bodies noted. Otherwise no additional rashes/lesions/lacerations noted. Extremities: No lower extremity edema. Extremities exhibit normal range of motion. Extremities nontender. Neuro: Oriented X 3. No motor deficit. No sensory deficit. Reflexes normal. CN's II-XII intact bilaterally? Psych: Appearance grossly normal, well-kept, mental status normal, speech and movement normal, speech clear, patient appears very sad and anxious along with depressed. Is cooperative. Course Course Course Narrative: 10:25am - 46-year-old female with a past medical history of PTSD, borderline personality disorder who frequently visits the ER for self-injury hewitt/anxiety/depression/auditory hallucinations and visual hallucinations and suicidal ideations no plan in place presenting to the ED via EMS with complaints of ?I want to ?. [facility] a [facility]. She has multiple self injury hewitt to bilateral forearms and abdomen. She reports that she is up-to-date on tetanus. She does not have an actual plan for SI. She was seen here yesterday and cleared and sent back to the penitentiary. Plan: COVID swab. Placed her in physician observation because the patient needs more time to be evaluated by crisis to evaluate if the patient needs to be admitted and the psych unit versus going back to the penitentiary. Will continue to monitor as patient is alert and oriented x3. Not in any acute distress. No focal neuro deficits are noted. Lungs clear to auscultation. CV RRR. She does have self inflicted hewitt to her bilateral arms and to her abdomen although no signs of infection or foreign bodies. Reevaluation(s) Reevaluation #1: Patient has been calm and cooperative while she has been here in the emergency department now she denies any thoughts of hurting herself she is at her baseline she was evaluated by the care team and they are clearing her she will be sent back to the penitentiary she understands agrees with this plan. Time: 15:00 [facility] - Psych Medical Records Attestation: I reviewed the patient's medical records. Lab Data Labs: Lab Results 01/15/22 Range/Units 11:05 COVID-19 (NICK) Negative (Negative) COVID-19 Clin Com See Note Discharge Plan Discharge Clinical Impression: Depression Patient Disposition: Home, Self-Care Instructions: Depression (ED) Prescriptions: No Action polyethylene glycol 3350 [Miralax] 17 gram Powder In Packet 17 g PO DAILY PRN (Reason: Constipation) 0RF metformin 500 mg tablet 1 tab PO BID 0RF atorvastatin 10 mg tablet 1 tab PO DAILY 0RF pantoprazole 40 mg tablet,delayed release (DR/EC) 1 tab PO BID@0630,1630 0RF verapamil 240 mg tablet extended release 1 tab PO BEDTIME 0RF montelukast 10 mg tablet 1 tab PO BEDTIME 0RF ferrous sulfate 325 mg (65 mg iron) tablet,delayed release (DR/EC) 1 tab PO DAILY 0RF Flovent HFA 110 mcg/actuation HFA aerosol inhaler 2 puff inhalation BID 0RF norethindrone (contraceptive) [Deblitane] 0.35 mg Tablet 0.35 mg PO DAILY 0RF albuterol sulfate [Ventolin HFA] 90 mcg/actuation HFA aerosol inhaler 2 puff inhalation Q4H PRN (Reason: Shortness Of Breath) 0RF trazodone 150 mg tablet 150 mg PO BEDTIME PRN (Reason: insomnia) 0RF clonazepam 0.5 mg tablet 0.5 mg PO QID PRN (Reason: anxiety/AH) 0RF Rx Instructions: may take within 1 hour of each other; max dose 1mg daily benztropine 1 mg tablet 1 mg PO QAM 0RF chlorpromazine 25 mg Tablet 75 mg PO QAM 0RF chlorpromazine 25 mg tablet 75 mg PO BID PRN (Reason: agitation) 0RF hydroxyzine HCl 50 mg Tablet 50 mg PO QID PRN (Reason: Anxiety) 30 Days Qty: 120 0RF ibuprofen 600 mg Tablet 600 mg PO Q6H PRN (Reason: Mild Pain (Scale Score 1-4)) 0RF fluoxetine 20 mg Capsule 40 mg PO DAILY 30 Days Qty: 60 0RF prazosin 1 mg Capsule 4 mg PO BEDTIME 30 Days Qty: 120 0RF Protocol: Hold for SBP< HOLD for SBP < : 90 mirtazapine 7.5 mg Tablet 7.5 mg PO BEDTIME MRX1 30 Days Qty: 60 0RF lisinopril 5 mg tablet 1 tab PO DAILY 0RF nicotine 21 mg/24 hr Patch 24 Hour 1 patch TRANSDERMAL DAILY PRN (Reason: Nicotine Cravings) 0RF Referrals: Maribel Marquez NP [Primary Care Provider] - 2 days
[2022-01-15 11:52] LABS: COVID-19 Test Negative (Negative)
--- NOTE | 2022-01-15 15:28 | MHC.CARE ---
CARE Team met with Pt who is requesting to be discharged home. Pt and CARE Team discussed triggers from earlier today and ways to cope when she returns to her fdc. Pt is denying current SI/AH/VH/HI. Pt is presenting at her baseline. Plan for Pt to be discharged to her fdc. Case discussed with TIMI Rivas
== END 2022-01-15 16:03 | disposition home or self-care (01) ==
PROVIDERS: Physician Assistant Medical; Emergency Provider Emergency Medicine; PCP Nurse Practitioner Family
DX: F33.1 Major depressive disorder, recurrent, moderate (principal); R45.851 Suicidal ideations; Z79.899 Other long term (current) drug therapy
CPT/HCPCS: 87635; 99283

== ENCOUNTER 2022-01-15 18:33 | Emergency (ER) | payer MEDICARE, MEDICAID, SELFPAY ==
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
[2022-01-15 18:45] VITALS: BP 169/114; PULSE 128; RESP 20; TEMP 36.9; O2SAT 97; BMI 29.8
[2022-01-15 20:05] LABS: COVID-19 Test Negative (Negative)
[2022-01-15 21:14] VITALS: BP 133/84; PULSE 89; O2SAT 96
[2022-01-16 02:38] LABS: Basophils Percent Auto 0.4 % (0-2); Eosinophils Absolute Auto 0.3 X10*3/uL (0.0-0.4); Hematocrit 35.8 % (37.0-47.0); Hemoglobin 11.6 g/dl (12.0-16.0); Imm Gran Abs Auto 0.03 X10*3/uL (0.00-0.03); Imm Gran Pct Auto 0.4 % (0.0-0.4); Lymphocytes Percent Auto 29.7 % (20-40); MANUAL DIFF FLAG NO; Mean Corpuscular HGB Conc 32.4 g/dl (31.0-35.0); Mean Corpuscular Hemoglobin 28.9 pg (27.0-33.0); Mean Corpuscular Volume 89.1 fL (80.0-98.0); Mean Platelet Volume 9.9 fL (9.4-12.3); Monocytes Absolute Auto 0.7 X10*3/uL (0.1-1.2); Monocytes Percent Auto 9.7 % (2-11); Neutrophils Absolute Auto 3.8 x10*3/uL (2.0-8.3); Neutrophils Percent Auto 55.8 % (45-73); Platelet Count 238 X10*3/uL (160-400); Red Blood Count 4.02 X10*6/uL (4.20-5.50); Red Cell Distribution Width 13.3 % (11.0-16.0); White Blood Count 6.7 X10*3/uL (4.8-10.8)
[2022-01-16 02:58] LABS: Anion Gap 13 (12-20); Blood Urea Nitrogen 13 mg/dL (9-16); Calcium 8.9 mg/dL (8.4-10.2); Carbon Dioxide 25 mmol/L (22-29); Chloride 105 mmol/L (96-108); Creatinine Clr Calc Pharmacy 105.8; Estimated Glomerular Filt Rate > 60; Glucose Random 98 mg/dL (60-115); Potassium 3.8 mmol/L (3.3-5.1); Sodium 139 mmol/L (135-145)
[2022-01-16 06:15] VITALS: RESP 15
--- NOTE | 2022-01-16 06:17 | PC.NURSE ---
PT refused Vitals at this time RN was notify
--- NOTE | 2022-01-16 07:37 | PC.NURSE ---
Patient slept through the night, no distress observed/reported, behavior non concerning, awaiting ride back to [facility], VSS, will continue to monitor.
--- NOTE | 2022-01-16 08:17 | PC.NURSE ---
Pt A&OX3, calm and cooperative this morning, met with care team. Plan for DC.
--- NOTE | 2022-01-16 10:07 | MHC.CARE ---
Risk Assessment: Pt is presenting at her baseline- Pt is denying current SI/HI/AH/VH. Pt is requesting to be discharged. CARE Team discussed plan with Dr. Velasco who is in agreement.
== END 2022-01-16 08:18 | disposition home or self-care (01) ==
PROVIDERS: Physician Assistant; Emergency Provider Student in an Organized Health Care Education/Training Program
DX: F33.1 Major depressive disorder, recurrent, moderate (principal); R45.851 Suicidal ideations; F41.1 Generalized anxiety disorder; F43.0 Acute stress reaction; F17.210 Nicotine dependence, cigarettes, uncomplicated; Z20.822 Contact with and (suspected) exposure to COVID-19; Z71.6 Tobacco abuse counseling; Z79.899 Other long term (current) drug therapy
CPT/HCPCS: 36415; 80048; 85025; 87635; 99283; 99284

== ENCOUNTER 2022-01-17 17:04 | Emergency (ER) | payer MEDICARE, MEDICAID, SELFPAY ==
[2022-01-17 17:11] VITALS: BP 147/93; BP 150/87; PULSE 102; PULSE 95; RESP 15; TEMP 37.4; O2SAT 95; O2SAT 99; BMI 36.6
--- NOTE | 2022-01-17 17:39 | ED_ITS ---
HPI - Psych General Chief Complaint: Psychiatric Symptoms Stated Complaint: SI FROM [facility] Time Seen by Provider: 01/17/22 17:36 Source: patient Mode of arrival: ambulatory Limitations: no limitations History of Present Illness HPI Narrative: 46-year-old female history of depression presents to ED for suicidal ideation. Patient is a regular to the ER for suicidal ideation and depression. Patient states suicidal voicing telling her to kill herslef. Patient evaluated by [facility] service in the community. Patient will be re-evaluated in the morning by [facility]. Related Data Home Medications Medication Instructions Recorded Confirmed polyethylene glycol 3350 17 gram 17 g PO DAILY PRN 02/12/21 01/17/22 oral powder packet (Miralax) atorvastatin 10 mg tablet 1 tab PO DAILY 05/29/21 01/17/22 ferrous sulfate 325 mg (65 mg 1 tab PO DAILY 05/29/21 01/17/22 iron) tablet,delayed release fluticasone propionate 110 2 puff INHALATION BID 05/29/21 01/17/22 mcg/actuation HFA aerosol inhaler (Flovent HFA) metformin 500 mg tablet 1 tab PO BID 05/29/21 01/17/22 montelukast 10 mg tablet 1 tab PO BEDTIME 05/29/21 01/17/22 norethindrone (contraceptive) 0.35 0.35 mg PO DAILY 05/29/21 01/17/22 mg tablet (Deblitane) pantoprazole 40 mg tablet,delayed 1 tab PO BID@0630,1630 05/29/21 01/17/22 release verapamil 240 mg tablet,extended 1 tab PO BEDTIME 05/29/21 01/17/22 release albuterol sulfate 90 mcg/actuation 2 puff INHALATION Q4H PRN 06/15/21 01/17/22 aerosol inhaler (Ventolin HFA) ibuprofen 600 mg tablet 600 mg PO Q6H PRN 09/19/21 01/17/22 trazodone 150 mg tablet 150 mg PO BEDTIME PRN 11/05/21 01/17/22 clonazepam 0.5 mg tablet 0.5 mg PO QID PRN 11/11/21 01/17/22 lisinopril 5 mg tablet 1 tab PO DAILY 11/14/21 01/17/22 nicotine 21 mg/24 hr daily 1 patch TRANSDERMAL DAILY PRN 11/14/21 01/17/22 transdermal patch benztropine 1 mg tablet 1 mg PO QAM 12/26/21 01/17/22 chlorpromazine 25 mg tablet 75 mg PO BID PRN 12/26/21 01/17/22 chlorpromazine 25 mg tablet 75 mg PO QAM 12/26/21 01/17/22 Previous Rx's Medication Instructions Recorded hydroxyzine HCl 50 mg tablet 50 mg PO QID PRN 30 Days #120 tab 07/27/21 fluoxetine 20 mg capsule 40 mg PO DAILY 30 Days #60 cap 09/29/21 mirtazapine 7.5 mg tablet 7.5 mg PO BEDTIME MRX1 30 Days #60 10/18/21 tab prazosin 1 mg capsule 4 mg PO BEDTIME 30 Days #120 cap 10/18/21 Allergies Allergy/AdvReac Type Severity Reaction Status Date / Time Fish Containing Products Allergy Severe ANAPHYLAXIS Verified 11/14/21 08:35 codeine [Codeine] Allergy Unknown RASH Verified 11/14/21 08:35 Penicillins Allergy Unknown RASH Verified 11/14/21 08:35 prednisone [Prednisone] Allergy Unknown RASH Verified 11/14/21 08:35 Sulfa (Sulfonamide Allergy Unknown RASH Verified 11/14/21 08:35 Antibiotics) [Sulfa (Sulfonamides)] azithromycin [AZITHROMYCIN] AdvReac Severe RASH Verified 11/14/21 08:35 nicotine AdvReac Unknown HEART Verified 11/14/21 08:35 PALPITATION TO NICOTINE GUM Seafood Allergy Severe ANAPHYLAXIS Uncoded 11/05/21 21:13 From Geodon Allergy Unknown DYSURIA, Uncoded 11/05/21 21:13 RASH Review of Systems Review of Systems: Suicide. Depression Yes all other systems are reviewed and are negative [facility] Past Medical History Medical History Bronchitis Diabetes type 2, controlled GERD (gastroesophageal reflux disease) Hyperlipidemia MDD (major depressive disorder), recurrent episode, severe Mood disorder Overdose PTSD (post-traumatic stress disorder) Social History Social History 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: None 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 Other:: [facility] lives in [facility]. 4 in total live in [facility]. Housing: Other Housing Other:: snf Do you presently have visiting nurse or other home services: No (Medication administered by [facility] staff) Unable to assess alcohol history related to: Unknown Alcohol intake: never Patient Tobacco Use Status: Current everyday Tobacco user Tobacco use type: Cigarette Cigarette Packs Per Day: 1 Cigarettes Per Day: 20 Years Smoked: 20 e-Cigarette/Vaping Use: Never Used Second Hand Smoke Exposure: Yes Substance Use Type: Caffiene Advance Directives: No Advance Directives Information Provided: No service: No Sexual orientation: Don't Know Physical Exam Vital Signs: Vital Signs: Last Vital Signs Temp 99.3 F 01/17/22 17:11 Pulse 102 H 01/17/22 17:11 Resp 15 01/17/22 17:11 BP 147/93 H 01/17/22 17:11 Pulse Ox 95 01/17/22 17:11 BMI result Body Mass Index 36.6 Const: General: cooperative, healthy appearing, comfortable, no acute distress, well developed, alert, awake and Physically active Orientation/consciousness: oriented to time and patient oriented x3 HEENT: Head: Yes normal to inspection, Yes No palpable skull fracture present, Yes normocephalic, Yes atraumatic and No abrasion Eyes: General: appearance normal, both eyes and all related structures Neck: Neck: Yes normal visual inspection, Yes full ROM, Yes no lymphadenopathy, Yes no meningeal signs, Yes trachea midline, Yes supple, No anterior neck swelling and No tender Chest: Chest palpation & inspection: normal inspection of the chest and normal palpation of entire chest wall Resp: Effort & Inspection: normal respiratory effort and able to speak in complete sentences Auscultation: clear to auscultation bilaterally Cardio: Jugular venous distension: no JVD Heart sounds: S1 normal heart sound present and S2 normal heart sound present GI: Inspection: Yes normal to inspection and No abdominal wall ecchymosis Palpation (GI): Soft to palpation, not firm, nontender, no guarding and not rigid : General: No CVA tenderness and Yes no CVA tenderness Back/Spine/Pelvis: Back: no CVA tenderness, No CVA tenderness and No back ten derness Skin: Other: Old bilateral upper extremity abrasions from self cutting. Neuro: General: oriented to time, patient oriented x3, gait normal and no meningeal signs Cranial nerves: Yes CN's II-XII intact bilaterally Extrem: General: Yes normal to inspection and Yes full ROM Psych: Appearance: grossly normal, well kempt and not disheveled Course Course Course Narrative: Patient had basic labs and stay overnight for re-evaluation by S in the morning Reevaluation(s) Reevaluation #1: Patient evaluated by care team applications sales consultant Nicole who states patient is safe for discharge. Patient is no longer suicidal/homicidal. Nicole also spoke with [facility] surface supervisor agree with plan for patient to be discharged. Patient presently informed that she is no longer suicidal and is not homidial. Time: 22:34 MDM - Psych MDM Narrative Medical decision making narrative: Depression Lab Data Labs: Lab Results 01/17/22 01/17/22 01/17/22 Range/Units 18:17 18:17 18:17 Urine Color YELLOW Urine Appearance CLEAR Urine pH 7.0 (5.0-8.0) Ur Specific [place] <= 1.005 (1.005-1.025) Urine Protein NEG (NEG-TRACE) MG/DL Urine Glucose (UA) NEG (NEG) MG/DL Urine Ketones NEG (NEG) MG/DL Urine Blood NEG (NEG) Urine Nitrite NEG (NEG) Ur Leukocyte Esterase NEG (NEG) Urine Test NEGATIVE (NEGATIVE) Urine Opiates Screen Not Detected (Not Detect) Urine Fentanyl Screen Not Detected (Not Detect) Ur Barbiturates Screen Not Detected (Not Detect) Ur Phencyclidine Scrn Not Detected (Not Detect) Ur Amphetamines Screen Not Detected (Not Detect) U Benzodiazepines Scrn Not Detected (Not Detect) Urine Cocaine Screen Not Detected (Not Detect) U Marijuana (THC) Screen Not Detected (Not Detect) COVID-19 (NICK) (Negative) COVID-19 Clin Com 01/17/22 Range/Units 18:22 Urine Color Urine Appearance Urine pH (5.0-8.0) Ur Specific [place] (1.005-1.025) Urine Protein (NEG-TRACE) MG/DL Urine Glucose (UA) (NEG) MG/DL Urine Ketones (NEG) MG/DL Urine Blood (NEG) Urine Nitrite (NEG) Ur Leukocyte Esterase (NEG) Urine Test (NEGATIVE) Urine Opiates Screen (Not Detect) Urine Fentanyl Screen (Not Detect) Ur Barbiturates Screen (Not Detect) Ur Phencyclidine Scrn (Not Detect) Ur Amphetamines Screen (Not Detect) U Benzodiazepines Scrn (Not Detect) Urine Cocaine Screen (Not Detect) U Marijuana (THC) Screen (Not Detect) COVID-19 (NICK) Negative (Negative) COVID-19 Clin Com See Note Discharge Plan Discharge Clinical Impression: Depression Patient Disposition: Home, Self-Care Instructions: Depression (DC) Additional Instructions: Return to the ED for any suicidal/homicidal ideation, auditory/visual hallucinations, or any physical concerning symptoms. Please follow up with PCP, therpist, and psychiatrists. Prescriptions: No Action polyethylene glycol 3350 [Miralax] 17 gram Powder In Packet 17 g PO DAILY PRN (Reason: Constipation) 0RF metformin 500 mg tablet 1 tab PO BID 0RF atorvastatin 10 mg tablet 1 tab PO DAILY 0RF pantoprazole 40 mg tablet,delayed release (DR/EC) 1 tab PO BID@0630,1630 0RF verapamil 240 mg tablet extended release 1 tab PO BEDTIME 0RF montelukast 10 mg tablet 1 tab PO BEDTIME 0RF ferrous sulfate 325 mg (65 mg iron) tablet,delayed release (DR/EC) 1 tab PO DAILY 0RF Flovent HFA 110 mcg/actuation HFA aerosol inhaler 2 puff inhalation BID 0RF norethindrone (contraceptive) [Deblitane] 0.35 mg Tablet 0.35 mg PO DAILY 0RF albuterol sulfate [Ventolin HFA] 90 mcg/actuation HFA aerosol inhaler 2 puff inhalation Q4H PRN (Reason: Shortness Of Breath) 0RF trazodone 150 mg tablet 150 mg PO BEDTIME PRN (Reason: insomnia) 0RF clonazepam 0.5 mg tablet 0.5 mg PO QID PRN (Reason: anxiety/AH) 0RF Rx Instructions: may take within 1 hour of each other; max dose 1mg daily benztropine 1 mg tablet 1 mg PO QAM 0RF chlorpromazine 25 mg Tablet 75 mg PO QAM 0RF chlorpromazine 25 mg tablet 75 mg PO BID PRN (Reason: agitation) 0RF hydroxyzine HCl 50 mg Tablet 50 mg PO QID PRN (Reason: Anxiety) 30 Days Qty: 120 0RF ibuprofen 600 mg Tablet 600 mg PO Q6H PRN (Reason: Mild Pain (Scale Score 1-4)) 0RF fluoxetine 20 mg Capsule 40 mg PO DAILY 30 Days Qty: 60 0RF prazosin 1 mg Capsule 4 mg PO BEDTIME 30 Days Qty: 120 0RF Protocol: Hold for SBP< HOLD for SBP < : 90 mirtazapine 7.5 mg Tablet 7.5 mg PO BEDTIME MRX1 30 Days Qty: 60 0RF lisinopril 5 mg tablet 1 tab PO DAILY 0RF nicotine 21 mg/24 hr Patch 24 Hour 1 patch TRANSDERMAL DAILY PRN (Reason: Nicotine Cravings) 0RF Interventions: ED Discharge Assessment Last Done: 01/17/22 22:55 Discharge Date/Time: 01/17/22 23:00 Print Language: Korean
[2022-01-17 18:34] LABS: Appearance Urine CLEAR; Color Urine YELLOW; Glucose Urine UA NEG (NEG); Leukocyte Esterase Urine NEG (NEG); Nitrite Urine NEG (NEG); Specific Gravity - Urine <= 1.005 (1.005-1.025); Urine Blood NEG (NEG); Urine Ketones NEG (NEG); Urine Protein NEG (NEG-TRACE)
[2022-01-17 18:36] LABS: UPreg QC Valid YES; Urine Pregnancy NEGATIVE (NEGATIVE)
[2022-01-17 18:43] LABS: Amphetamine Screen Urine Not Detected (Not Detect); Barbiturates, Urine Not Detected (Not Detect); Benzodiazepines Screen Urine Not Detected (Not Detect); Cannabinoid Screen Urine Not Detected (Not Detect); Cocaine Screen Urine Not Detected (Not Detect); Fentanyl, urine Not Detected (Not Detect); Opiate Screen Urine Not Detected (Not Detect); Phencyclidine Screen Urine Not Detected (Not Detect)
[2022-01-17 18:48] LABS: COVID-19 Test Negative (Negative)
--- NOTE | 2022-01-17 22:54 | MHC.CARE ---
Pt requesting to leave. Denied having any thoughts or self harm or suicide, denied experiencing AVH. This script writer reviewed pt's evaluation with [facility] supervisor laboratory Cara. Disposition essentially stated that the pt is at her baseline and was being sent to the hospital because she wasn't able to regulate at her detention, and would be a follow up tomorrow. Plan is for pt to discharge back to her detention this evening, pending Lyft availability.
== END 2022-01-17 23:00 | disposition home or self-care (01) ==
PROVIDERS: Physician Assistant; Emergency Provider Internal Medicine; PCP Nurse Practitioner Family
DX: F32.A Depression, unspecified (principal); R45.851 Suicidal ideations; F43.10 Post-traumatic stress disorder, unspecified; F60.3 Borderline personality disorder; E11.9 Type 2 diabetes mellitus without complications; E78.5 Hyperlipidemia, unspecified; F17.200 Nicotine dependence, unspecified, uncomplicated; Z79.02 Long term (current) use of antithrombotics/antiplatelets; Z79.899 Other long term (current) drug therapy; Z20.822 Contact with and (suspected) exposure to COVID-19
CPT/HCPCS: 80307; 81003; 81025; 87635; 99283

== ENCOUNTER 2022-01-18 15:01 | Emergency (ER) | payer MEDICARE, MEDICAID, SELFPAY ==
[2022-01-18 15:26] VITALS: BP 145/70; PULSE 110; RESP 19; TEMP 36.9; O2SAT 98; BMI 34.9
--- NOTE | 2022-01-18 15:26 | ED.PSYCH ---
HPI - Psych General Chief Complaint: Psychiatric Symptoms Stated Complaint: SI Time Seen by Provider: 01/18/22 15:26 Source: patient Mode of arrival: ambulatory Limitations: no limitations History of Present Illness HPI Narrative: 46-year-old female past medical history borderline personality disorder, depression, anxiety, bipolar 2 with melancholic features, PTSD, DM, GERD here with reports of suicidal thoughts, feeling depressed. Patient tells me that yesterday she got very stressed so she decided to write a suicide note that she was going to overdose on aspirin. Patient tells me that today she continued to feel suicidal and so she brought herself here to the emergency department. Of note patient was seen in our emergency room January 17, January 15 on 2 occasions, January 14, January 13 and multiple other dates prior to this. No physical complaints Related Data Home Medications Medication Instructions Recorded Confirmed polyethylene glycol 3350 17 gram 17 g PO DAILY PRN 02/12/21 01/17/22 oral powder packet (Miralax) atorvastatin 10 mg tablet 1 tab PO DAILY 05/29/21 01/17/22 ferrous sulfate 325 mg (65 mg 1 tab PO DAILY 05/29/21 01/17/22 iron) tablet,delayed release fluticasone propionate 110 2 puff INHALATION BID 05/29/21 01/17/22 mcg/actuation HFA aerosol inhaler (Flovent HFA) metformin 500 mg tablet 1 tab PO BID 05/29/21 01/17/22 montelukast 10 mg tablet 1 tab PO BEDTIME 05/29/21 01/17/22 norethindrone (contraceptive) 0.35 0.35 mg PO DAILY 05/29/21 01/17/22 mg tablet (Deblitane) pantoprazole 40 mg tablet,delayed 1 tab PO BID@0630,1630 05/29/21 01/17/22 release verapamil 240 mg tablet,extended 1 tab PO BEDTIME 05/29/21 01/17/22 release albuterol sulfate 90 mcg/actuation 2 puff INHALATION Q4H PRN 06/15/21 01/17/22 aerosol inhaler (Ventolin HFA) ibuprofen 600 mg tablet 600 mg PO Q6H PRN 09/19/21 01/17/22 trazodone 150 mg tablet 150 mg PO BEDTIME PRN 11/05/21 01/17/22 clonazepam 0.5 mg tablet 0.5 mg PO QID PRN 11/11/21 01/17/22 lisinopril 5 mg tablet 1 tab PO DAILY 11/14/21 01/17/22 nicotine 21 mg/24 hr daily 1 patch TRANSDERMAL DAILY PRN 11/14/21 01/17/22 transdermal patch benztropine 1 mg tablet 1 mg PO QAM 12/26/21 01/17/22 chlorpromazine 25 mg tablet 75 mg PO BID PRN 12/26/21 01/17/22 chlorpromazine 25 mg tablet 75 mg PO QAM 12/26/21 01/17/22 Previous Rx's Medication Instructions Recorded hydroxyzine HCl 50 mg tablet 50 mg PO QID PRN 30 Days #120 tab 07/27/21 fluoxetine 20 mg capsule 40 mg PO DAILY 30 Days #60 cap 09/29/21 mirtazapine 7.5 mg tablet 7.5 mg PO BEDTIME MRX1 30 Days #60 10/18/21 tab prazosin 1 mg capsule 4 mg PO BEDTIME 30 Days #120 cap 10/18/21 Allergies Allergy/AdvReac Type Severity Reaction Status Date / Time Fish Containing Products Allergy Severe ANAPHYLAXIS Verified 11/14/21 08:35 codeine [Codeine] Allergy Unknown RASH Verified 11/14/21 08:35 Penicillins Allergy Unknown RASH Verified 11/14/21 08:35 prednisone [Prednisone] Allergy Unknown RASH Verified 11/14/21 08:35 Sulfa (Sulfonamide Allergy Unknown RASH Verified 11/14/21 08:35 Antibiotics) [Sulfa (Sulfonamides)] azithromycin [AZITHROMYCIN] AdvReac Severe RASH Verified 11/14/21 08:35 nicotine AdvReac Unknown HEART Verified 11/14/21 08:35 PALPITATION TO NICOTINE GUM Seafood Allergy Severe ANAPHYLAXIS Uncoded 11/05/21 21:13 From Geodon Allergy Unknown DYSURIA, Uncoded 11/05/21 21:13 RASH Review of Systems Review of Systems: Yes all other systems are reviewed and are negative Constitutional: Constitutional: Reports no additional constitutional complaints, Denies body ache(s), Denies chills, Denies fever(s), Denies headache(s) and Denies weakness Eyes: Eyes: Reports no additional eye complaints and Denies change in vision ENT: Reports system reviewed and no additional complaints, except as documented, Denies dizziness, Denies headache(s), Denies nasal congestion, Denies nasal discharge and Denies neck pain Cardiovascular: Cardiovascular: Reports no additional cardiovascular complaints, Denies chest pain, Denies leg edema and Denies dyspnea Respiratory: Respiratory: Reports no additional respiratory complaints, Denies cough and Denies dyspnea Gastrointestinal: Gastrointestinal: Reports no additional gastrointestinal complaints, Denies abdominal pain, Denies diarrhea, Denies nausea and Denies vomiting Genitourinary: Genitourinary: Reports no additional female genitourinary complaints and Denies urinary incontinence Musculoskeletal: Musculoskeletal: Reports no additional musculoskeletal complaints, Denies back pain, Denies arthralgias, Denies joint swelling, Denies neck pain, Denies numbness and Denies tingling Integumentary/Breasts: Skin/Breast: Reports system reviewed and no additional complaints, except as docu and Denies rash Neurologic: Reports system reviewed and no additional complaints, except as documented, Denies Abnormal speech present, Denies dizziness, Denies headache(s), Denies numbness, Denies tingling and Denies weakness Psychiatric: Psychiatric: Reports depression and Reports suicidal ideation PMF Past Medical History Attestation statement: The following information was validated with the patient. Source: old records reviewed and nursing notes reviewed Medical History Bronchitis Diabetes type 2, controlled GERD (gastroesophageal reflux disease) Hyperlipidemia MDD (major depressive disorder), recurrent episode, severe Mood disorder Overdose PTSD (post-traumatic stress disorder) Social History Social History 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: None 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 Other:: Patient lives in half-way. 4 in total live in half-way. Housing: Other Housing Other:: [facility] Do you presently have visiting nurse or other home services: No (Medication administered by half-way staff) Unable to assess alcohol history related to: Unknown Alcohol intake: never Patient Tobacco Use Status: Current everyday Tobacco user Tobacco use type: Cigarette Cigarette Packs Per Day: 1 Cigarettes Per Day: 20 Years Smoked: 20 e-Cigarette/Vaping Use: Never Used Second Hand Smoke Exposure: Yes Substance Use Type: Caffiene Advance Directives: No Advance Directives Information Provided: No Patient : No service: No Sexual orientation: Don't Know Physical Exam Vital Signs: Vital Signs: Last Vital Signs Temp 99.1 F 01/18/22 15:49 Pulse 74 01/18/22 15:49 Resp 17 01/18/22 15:49 BP 154/61 H 01/18/22 15:49 Pulse Ox 97 01/18/22 15:49 BMI result Body Mass Index 34.9 Const: General: cooperative, healthy appearing, comfortable and no acute distress Orientation/consciousness: patient oriented x3 Limitations: no limitations HEENT: Head: Yes normal to inspection Ears: hearing grossly normal bilaterally General nose exam: Normal external nose present Face and sinus: Yes normal facial exam Mouth: Normal oral and palatal mucosa present Throat: Yes posterior oropharynx normal Eyes: General: appearance normal, both eyes and all related structures Pupils: Equal, round and reactive pupils present Neck: Neck: Yes normal visual inspection Chest: Chest palpation & inspection: normal inspection of the chest Resp: Effort & Inspection: normal respiratory effort Auscultation: clear to auscultation bilaterally Cardio: Rate: regular rate Rhythm: regular rhythm Peripheral pulses: Peripheral pulses 2+ throughout GI: Inspection: Yes normal to inspection Palpation (GI): Soft to palpation and nontender Auscultation: normal bowel sounds Back/Spine/Pelvis: Thoracic/Lumbar Spine: thoracic and lumbar spine normal to inspection Skin: General skin exam: no rashes or lesions noted Neuro: General: patient oriented x3, no focal motor deficits and normal sensation to monofilament Cranial nerves: Yes CN's II-XII intact bilaterally and Yes Equal, round and reactive pupils present Cognition (Neuro): normal cognition Speech: No Abnormal speech present Gait exam (Neuro): Normal gait present Motor exam (neuro): 5/5 motor strength present throughout Extrem: General: Yes normal to inspection Course Course Course Narrative: 46-year-old female here with suicidal thoughts and depression. No physical complaints. No concern for acute ingestion or trauma. Will check COVID screen, drug screen, obtain care team consultation MDM - Psych Medical Records Attestation: I reviewed the patient's medical records. Lab Data Attestation: I reviewed the patient's lab results. Labs: Lab Results 01/18/22 01/18/22 Range/Units 15:42 16:53 Urine Opiates Screen Not Detected (Not Detect) Urine Fentanyl Screen Not Detected (Not Detect) Ur Barbiturates Screen Not Detected (Not Detect) Ur Phencyclidine Scrn Not Detected (Not Detect) Ur Amphetamines Screen Not Detected (Not Detect) U Benzodiazepines Scrn Not Detected (Not Detect) Urine Cocaine Screen Not Detected (Not Detect) U Marijuana (THC) Screen Not Detected (Not Detect) COVID-19 ([facility]) Negative (Negative) COVID-19 Clin Com See Note Discharge Plan Discharge Clinical Impression: Borderline personality disorder Patient Disposition: Still a Patient Prescriptions: No Action polyethylene glycol 3350 [Miralax] 17 gram Powder In Packet 17 g PO DAILY PRN (Reason: Constipation) 0RF metformin 500 mg tablet 1 tab PO BID 0RF atorvastatin 10 mg tablet 1 tab PO DAILY 0RF pantoprazole 40 mg tablet,delayed release (DR/EC) 1 tab PO BID@0630,1630 0RF verapamil 240 mg tablet extended release 1 tab PO BEDTIME 0RF montelukast 10 mg tablet 1 tab PO BEDTIME 0RF ferrous sulfate 325 mg (65 mg iron) tablet,delayed release (DR/EC) 1 tab PO DAILY 0RF Flovent HFA 110 mcg/actuation HFA aerosol inhaler 2 puff inhalation BID 0RF norethindrone (contraceptive) [Deblitane] 0.35 mg Tablet 0.35 mg PO DAILY 0RF albuterol sulfate [Ventolin HFA] 90 mcg/actuation HFA aerosol inhaler 2 puff inhalation Q4H PRN (Reason: Shortness Of Breath) 0RF trazodone 150 mg tablet 150 mg PO BEDTIME PRN (Reason: insomnia) 0RF clonazepam 0.5 mg tablet 0.5 mg PO QID PRN (Reason: anxiety/AH) 0RF Rx Instructions: may take within 1 hour of each other; max dose 1mg daily benztropine 1 mg tablet 1 mg PO QAM 0RF chlorpromazine 25 mg Tablet 75 mg PO QAM 0RF chlorpromazine 25 mg tablet 75 mg PO BID PRN (Reason: agitation) 0RF hydroxyzine HCl 50 mg Tablet 50 mg PO QID PRN (Reason: Anxiety) 30 Days Qty: 120 0RF ibuprofen 600 mg Tablet 600 mg PO Q6H PRN (Reason: Mild Pain (Scale Score 1-4)) 0RF fluoxetine 20 mg Capsule 40 mg PO DAILY 30 Days Qty: 60 0RF prazosin 1 mg Capsule 4 mg PO BEDTIME 30 Days Qty: 120 0RF Protocol: Hold for SBP< HOLD for SBP < : 90 mirtazapine 7.5 mg Tablet 7.5 mg PO BEDTIME MRX1 30 Days Qty: 60 0RF lisinopril 5 mg tablet 1 tab PO DAILY 0RF nicotine 21 mg/24 hr Patch 24 Hour 1 patch TRANSDERMAL DAILY PRN (Reason: Nicotine Cravings) 0RF
[2022-01-18 15:49] VITALS: BP 154/61; PULSE 74; RESP 17; TEMP 37.3; O2SAT 97
[2022-01-18 16:20] LABS: IDNOW Serial# 16C4AD1C
[2022-01-18 16:21] LABS: COVID-19 Test Negative (Negative)
[2022-01-18 17:17] LABS: Amphetamine Screen Urine Not Detected (Not Detect); Barbiturates, Urine Not Detected (Not Detect); Benzodiazepines Screen Urine Not Detected (Not Detect); Cannabinoid Screen Urine Not Detected (Not Detect); Cocaine Screen Urine Not Detected (Not Detect); Fentanyl, urine Not Detected (Not Detect); Opiate Screen Urine Not Detected (Not Detect); Phencyclidine Screen Urine Not Detected (Not Detect)
--- NOTE | 2022-01-18 18:26 | MHC.CARE ---
When TW enters the pod, pt calls social service agency director aside and reports that she has been hearing voices and experiencing suicidal thoughts. CARE Team makes a plan with pt to request an additional check in if pt begins feeling better and would like to discuss a safety plan. Pt has been presenting to the ED frequently with symptoms consistent with baseline functioning, however duration of ED visits have decreased since pt began working with the CARE Team. Patient requests to speak with CARE Team, stating that she is feeling better and would like to discharge home. CARE Team discusses a plan for the evening with pt. She identifies that she will spend time with preferred staff, clean her room and watch a movie. She requests a check in call with CARE Team to take place between 8p-9p. Pt states that she attempted to call N prior to coming to the ED, but was on hold for 45 mins. Plan is discussed with Stephanie Batista NP. CARE Team speaks with Nevaeh from [facility] who agrees pt can return.
--- NOTE | 2022-01-18 21:24 | MHC.CARE ---
CARE team completed check in call with pt. Pt reported she was going to be going to bed soon and reports she was watching music videos. CARE team offered her active listening and support as well as made a plan with her for the rest of her afternoon to reduce time in the ED.
== END 2022-01-18 18:24 | disposition other institution (70) ==
PROVIDERS: Nurse Practitioner Family; Emergency Provider Emergency Medicine Emergency Medical Services; PCP Nurse Practitioner Family
DX: F33.1 Major depressive disorder, recurrent, moderate (principal); R45.851 Suicidal ideations; F17.210 Nicotine dependence, cigarettes, uncomplicated; Z71.6 Tobacco abuse counseling; Z20.822 Contact with and (suspected) exposure to COVID-19; Z79.899 Other long term (current) drug therapy
CPT/HCPCS: 80307; 87635; 99283; 99284

== ENCOUNTER 2022-01-22 17:36 | Emergency (ER) | payer MEDICARE, MEDICAID, SELFPAY ==
--- NOTE | 2022-01-22 17:43 | ED.PSYCH ---
HPI - Psych General Chief Complaint: Psychiatric Symptoms Stated Complaint: SI,HEARING VOICES PER EMS Time Seen by Provider: 01/22/22 17:42 Source: patient and EMS Mode of arrival: EMS Limitations: no limitations History of Present Illness HPI Narrative: 46-year-old female past medical history borderline personality disorder, depression, anxiety, bipolar 2 with melancholic features, PTSD, DM, GERD presents to the ED with?auditory and visual hallucinations and SI w/o plan ? X1 day. Patient tells me that she has hearing male voices and seeing males who or telling her to kill herself. She tells me that she is also seeing her cousin who shot herself in front of her. She denies tactile hallucinations. She denies drugs, alcohol. She admits to tobacco use daily. Patient requesting a nicotine patch today. Denies homicidal ideation. Denies medical complaints. Patient tells me she would like to go inpatient. MD complaint: suicidal ideation and feels depressed Onset (ago): day(s) (1) Duration: constant History of same: Yes Relieving factors: none Exacerbating factors: none Associated psychiatric symptoms: none Associated symptoms: denies other symptoms Treatments prior to arrival: none If self harm: admits thoughts of self harm Related Data Home Medications Medication Instructions Recorded Confirmed polyethylene glycol 3350 17 gram 17 g PO DAILY PRN 02/12/21 01/17/22 oral powder packet (Miralax) atorvastatin 10 mg tablet 1 tab PO DAILY 05/29/21 01/17/22 ferrous sulfate 325 mg (65 mg 1 tab PO DAILY 05/29/21 01/17/22 iron) tablet,delayed release fluticasone propionate 110 2 puff INHALATION BID 05/29/21 01/17/22 mcg/actuation HFA aerosol inhaler (Flovent HFA) metformin 500 mg tablet 1 tab PO BID 05/29/21 01/17/22 montelukast 10 mg tablet 1 tab PO BEDTIME 05/29/21 01/17/22 norethindrone (contraceptive) 0.35 0.35 mg PO DAILY 05/29/21 01/17/22 mg tablet (Deblitane) pantoprazole 40 mg tablet,delayed 1 tab PO BID@0630,1630 05/29/21 01/17/22 release verapamil 240 mg tablet,extended 1 tab PO BEDTIME 05/29/21 01/17/22 release albuterol sulfate 90 mcg/actuation 2 puff INHALATION Q4H PRN 06/15/21 01/17/22 aerosol inhaler (Ventolin HFA) ibuprofen 600 mg tablet 600 mg PO Q6H PRN 09/19/21 01/17/22 trazodone 150 mg tablet 150 mg PO BEDTIME PRN 11/05/21 01/17/22 clonazepam 0.5 mg tablet 0.5 mg PO QID PRN 11/11/21 01/17/22 lisinopril 5 mg tablet 1 tab PO DAILY 11/14/21 01/17/22 nicotine 21 mg/24 hr daily 1 patch TRANSDERMAL DAILY PRN 11/14/21 01/17/22 transdermal patch benztropine 1 mg tablet 1 mg PO QAM 12/26/21 01/17/22 chlorpromazine 25 mg tablet 75 mg PO BID PRN 12/26/21 01/17/22 chlorpromazine 25 mg tablet 75 mg PO QAM 12/26/21 01/17/22 Previous Rx's Medication Instructions Recorded hydroxyzine HCl 50 mg tablet 50 mg PO QID PRN 30 Days #120 tab 07/27/21 fluoxetine 20 mg capsule 40 mg PO DAILY 30 Days #60 cap 09/29/21 mirtazapine 7.5 mg tablet 7.5 mg PO BEDTIME MRX1 30 Days #60 10/18/21 tab prazosin 1 mg capsule 4 mg PO BEDTIME 30 Days #120 cap 10/18/21 Allergies Allergy/AdvReac Type Severity Reaction Status Date / Time Fish Containing Products Allergy Severe ANAPHYLAXIS Verified 11/14/21 08:35 codeine [Codeine] Allergy Unknown RASH Verified 11/14/21 08:35 Penicillins Allergy Unknown RASH Verified 11/14/21 08:35 prednisone [Prednisone] Allergy Unknown RASH Verified 11/14/21 08:35 Sulfa (Sulfonamide Allergy Unknown RASH Verified 11/14/21 08:35 Antibiotics) [Sulfa (Sulfonamides)] azithromycin [AZITHROMYCIN] AdvReac Severe RASH Verified 11/14/21 08:35 nicotine AdvReac Unknown HEART Verified 11/14/21 08:35 PALPITATION TO NICOTINE GUM Seafood Allergy Severe ANAPHYLAXIS Uncoded 11/05/21 21:13 From Geodon Allergy Unknown DYSURIA, Uncoded 11/05/21 21:13 RASH Review of Systems Review of Systems: Constitutional : No Weight loss, No Fever, No Chills, No Fatigue, No Malaise ENT/Mouth : No sore throat, No Rhinorrhea Eyes: No Eye Pain, No Swelling, No Redness Cardiovascular : No Chest Pain, No SOB, No Dyspnea on Exertion, No Orthopnea, No Edema, No Palpitations Respiratory : No Cough, No Sputum, No Wheezing Gastrointestinal : No Nausea, No Vomiting, No Diarrhea, No Constipation, No abdominal Pain, No Hematochezia, No Melena Genitourinary : No Dysuria, No Urinary Frequency, No Hematuria, Musculoskeletal : No joint pain, No Myalgias, No Joint Swelling Skin : No Skin Lesions, No rash Neuro : No Weakness, No Numbness, No Dizziness, No Headache Psych : + Anxiety/Panic, No Depression, + auditory hallucinations, + SI All other systems reviewed and are negative? Yes all other systems are reviewed and are negative Yes all other systems are reviewed and are negative [facility] Past Medical History Attestation statement: The following information was validated with the patient. Source: old records reviewed and nursing notes reviewed Medical History Bronchitis Diabetes type 2, controlled GERD (gastroesophageal reflux disease) Hyperlipidemia MDD (major depressive disorder), recurrent episode, severe Mood disorder Overdose PTSD (post-traumatic stress disorder) Social History Social History 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: None 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 Other:: Patient lives in fdc. 4 in total live in fdc. Housing: Other Housing Other:: prison Do you presently have visiting nurse or other home services: No (Medication administered by fdc staff) Unable to assess alcohol history related to: Unknown Alcohol intake: never Patient Tobacco Use Status: Current everyday Tobacco user Tobacco use type: Cigarette Cigarette Packs Per Day: 1 Cigarettes Per Day: 20 Years Smoked: 20 e-Cigarette/Vaping Use: Never Used Second Hand Smoke Exposure: Yes Substance Use Type: Caffiene Advance Directives: No Advance Directives Information Provided: No Patient : No service: No Sexual orientation: Don't Know Physical Exam Vital Signs: Vital Signs: Last Vital Signs Temp 98.9 F 01/22/22 17:45 Pulse 90 01/22/22 17:45 Resp 18 01/22/22 17:45 BP 138/79 01/22/22 17:45 Pulse Ox 98 01/22/22 17:45 BMI result Body Mass Index 44.0 Appearance: Alert.? Oriented X3.? No acute distress.? Head: Normocephalic, atraumatic, no step-offs or deformities Eyes: Pupils equal, round and reactive to light.? ENT: Pharynx normal.? Neck: Normal inspection.? Neck supple.? CVS: Normal heart rate and rhythm.? Pulses normal.? Respiratory: No respiratory distress.? Breath sounds normal.? Abdomen: Soft and nontender.? Skin: Skin warm and dry.? Normal skin color.? Normal skin turgor.? Extremities: No lower extremity edema.? No calf ttp. 5/5 strength to bilateral upper and lower extremities Back: No midline tenderness, no C-spine tenderness, full range of motion, no CVA tenderness bilaterally Neuro: Oriented X 3.? No motor deficit.? No sensory deficit. CN 2-12 intact Course Reevaluation(s) Reevaluation #1: CBC appears to be at patient's baseline. No acute electrolyte abnormalities. Urine clean. Urine toxicology negative. Ethanol negative. COVID negative. Spoke to care team Thierry who evaluated patient. Patient feels much better no longer having suicidal ideation, no longer hearing voices or seeing things. She would like to go back to her fdc. At this time I feel comfortable with plan patient will be discharged home with outpatient providers and follow-up. Comfortable with discharge home with PCP and outpatient provider follow-up. Comfortable with plan Time: 20:00 MDM - Psych MDM Narrative Medical decision making narrative: 1945 46 yo f presents w/ with?auditory and visual hallucinations and SI w/o plan?X1 day PE benign Plan- medical clearance and behavioral health consult Medical Records Attestation: I reviewed the patient's medical records. Lab Data Attestation: I reviewed the patient's lab results. Result diagrams: 01/22/22 19:22 01/22/22 19:22 Labs: Lab Results 01/22/22 01/22/22 01/22/22 Range/Units 18:05 18:05 18:05 WBC (4.8-10.8) X10*3/uL RBC (4.20-5.50) X10*6/uL Hgb (12.0-16.0) g/dl Hct (37.0-47.0) % MCV (80.0-98.0) fL MCH (27.0-33.0) pg MCHC (31.0-35.0) g/dl RDW (11.0-16.0) % Plt Count (160-400) X10*3/uL MPV (9.4-12.3) fL Immature Gran % (Auto) (0.0-0.4) % Neut % (Auto) (45-73) % Lymph % (Auto) (20-40) % [place] % (Auto) (2-11) % Eos % (Auto) (0-4) % Baso % (Auto) (0-2) % Lymph # (Auto) (1.2-4.9) X10*3/uL [place] # (Auto) (0.1-1.2) X10*3/uL Eos # (Auto) (0.0-0.4) X10*3/uL Baso # (Auto) (0.0-0.2) X10*3/uL Abs Immat Gran (auto) (0.00-0.03) X10*3/uL Absolute Neuts (auto) (2.0-8.3) x10*3/uL Absolute Nucleated RBC (0.0-0.012) X10*3/uL Nucleated RBC % (auto) (0.0-0.2) /100WBC Sodium (135-145) mmol/L Potassium (3.3-5.1) mmol/L Chloride (96-108) mmol/L Carbon Dioxide (22-29) mmol/L Anion Gap (12-20) BUN (9-16) mg/dL Creatinine (0.5-1.4) mg/dL Estim Creat Clear Calc Estimated GFR Random Glucose (60-115) mg/dL Calcium (8.4-10.2) mg/dL Urine Color YELLOW Urine Appearance CLEAR Urine pH 6.0 (5.0-8.0) Ur Specific Britt <= 1.005 (1.005-1.025) Urine Protein NEG (NEG-TRACE) MG/DL Urine Glucose (UA) NEG (NEG) MG/DL Urine Ketones NEG (NEG) MG/DL Urine Blood NEG (NEG) Urine Nitrite NEG (NEG) Ur Leukocyte Esterase NEG (NEG) Urine Opiates Screen Not Detected (Not Detect) Urine Fentanyl Screen Not Detected (Not Detect) Ur Barbiturates Screen Not Detected (Not Detect) Ur Phencyclidine Scrn Not Detected (Not Detect) Ur Amphetamines Screen Not Detected (Not Detect) U Benzodiazepines Scrn Not Detected (Not Detect) Urine Cocaine Screen Not Detected (Not Detect) U Marijuana (THC) Screen Not Detected (Not Detect) Ethyl Alcohol mg/dL COVID-19 (NICK) Negative (Negative) COVID-19 Clin Com See Note 01/22/22 01/22/22 01/22/22 Range/Units 19:22 19: 19: WBC 7.7 (4.8-10.8) X10*3/uL RBC 4.45 (4.20-5.50) X10*6/uL Hgb 12.9 (12.0-16.0) g/dl Hct 39.9 (37.0-47.0) % MCV 89.7 (80.0-98.0) fL MCH 29.0 (27.0-33.0) pg MCHC 32.3 (31.0-35.0) g/dl RDW 13.2 (11.0-16.0) % Plt Count 265 (160-400) X10*3/uL MPV 9.7 (9.4-12.3) fL Immature Gran % (Auto) 0.5 H (0.0-0.4) % Neut % (Auto) 64.9 (45-73) % Lymph % (Auto) 22.5 (20-40) % [place] % (Auto) 7.3 (2-11) % Eos % (Auto) 4.4 H (0-4) % Baso % (Auto) 0.4 (0-2) % Lymph # (Auto) 1.7 (1.2-4.9) X10*3/uL [place] # (Auto) 0.6 (0.1-1.2) X10*3/uL Eos # (Auto) 0.3 (0.0-0.4) X10*3/uL Baso # (Auto) 0.0 (0.0-0.2) X10*3/uL Abs Immat Gran (auto) 0.04 H (0.00-0.03) X10*3/uL Absolute Neuts (auto) 5.0 (2.0-8.3) x10*3/uL Absolute Nucleated RBC 0.000 (0.0-0.012) X10*3/uL Nucleated RBC % (auto) 0.0 (0.0-0.2) /100WBC Sodium 135 (135-145) mmol/L Potassium 3.9 (3.3-5.1) mmol/L Chloride 104 (96-108) mmol/L Carbon Dioxide 23 (22-29) mmol/L Anion Gap 12 (12-20) BUN 6 L D (9-16) mg/dL Creatinine 0.79 (0.5-1.4) mg/dL Estim Creat Clear Calc 117.9 Estimated GFR > 60 Random Glucose 103 (60-115) mg/dL Calcium 8.8 (8.4-10.2) mg/dL Urine Color Urine Appearance Urine pH (5.0-8.0) Ur Specific Britt (1.005-1.025) Urine Protein (NEG-TRACE) MG/DL Urine Glucose (UA) (NEG) MG/DL Urine Ketones (NEG) MG/DL Urine Blood (NEG) Urine Nitrite (NEG) Ur Leukocyte Esterase (NEG) Urine Opiates Screen (Not Detect) Urine Fentanyl Screen (Not Detect) Ur Barbiturates Screen (Not Detect) Ur Phencyclidine Scrn (Not Detect) Ur Amphetamines Screen (Not Detect) U Benzodiazepines Scrn (Not Detect) Urine Cocaine Screen (Not Detect) U Marijuana (THC) Screen (Not Detect) Ethyl Alcohol < 10 mg/dL COVID-19 (NICK) (Negative) COVID-19 Clin Com Critical Care Time Critical Care Time Critical Care Time: No Discharge Plan Discharge Clinical Impression: Borderline personality disorder, Acute anxiety Patient Disposition: Home, Self-Care Instructions: Borderline Personality Disorder (DC), Anxiety (ED) Additional Instructions: Take your medications as prescribed. If you were prescribed antibiotics today, it is important that you take your medication to their entirety, do not skip any doses, do not finish them early. Follow-up with your primary care provider this week. Return to the emergency department with new or worsening symptoms. Such as fevers, chills, chest pain, shortness of breath, nausea, vomiting, dizziness, headache, vision changes, lethargy, suicidal ideation, homicidal ideation In case of emergency call 911 Prescriptions: No Action polyethylene glycol 3350 [Miralax] 17 gram Powder In Packet 17 g PO DAILY PRN (Reason: Constipation) 0RF metformin 500 mg tablet 1 tab PO BID 0RF atorvastatin 10 mg tablet 1 tab PO DAILY 0RF pantoprazole 40 mg tablet,delayed release (DR/EC) 1 tab PO BID@0630,1630 0RF verapamil 240 mg tablet extended release 1 tab PO BEDTIME 0RF montelukast 10 mg tablet 1 tab PO BEDTIME 0RF ferrous sulfate 325 mg (65 mg iron) tablet,delayed release (DR/EC) 1 tab PO DAILY 0RF Flovent HFA 110 mcg/actuation HFA aerosol inhaler 2 puff inhalation BID 0RF norethindrone (contraceptive) [Deblitane] 0.35 mg Tablet 0.35 mg PO DAILY 0RF albuterol sulfate [Ventolin HFA] 90 mcg/actuation HFA aerosol inhaler 2 puff inhalation Q4H PRN (Reason: Shortness Of Breath) 0RF trazodone 150 mg tablet 150 mg PO BEDTIME PRN (Reason: insomnia) 0RF clonazepam 0.5 mg tablet 0.5 mg PO QID PRN (Reason: anxiety/AH) 0RF Rx Instructions: may take within 1 hour of each other; max dose 1mg daily benztropine 1 mg tablet 1 mg PO QAM 0RF chlorpromazine 25 mg Tablet 75 mg PO QAM 0RF chlorpromazine 25 mg tablet 75 mg PO BID PRN (Reason: agitation) 0RF hydroxyzine HCl 50 mg Tablet 50 mg PO QID PRN (Reason: Anxiety) 30 Days Qty: 120 0RF ibuprofen 600 mg Tablet 600 mg PO Q6H PRN (Reason: Mild Pain (Scale Score 1-4)) 0RF fluoxetine 20 mg Capsule 40 mg PO DAILY 30 Days Qty: 60 0RF prazosin 1 mg Capsule 4 mg PO BEDTIME 30 Days Qty: 120 0RF Protocol: Hold for SBP< HOLD for SBP < : 90 mirtazapine 7.5 mg Tablet 7.5 mg PO BEDTIME MRX1 30 Days Qty: 60 0RF lisinopril 5 mg tablet 1 tab PO DAILY 0RF nicotine 21 mg/24 hr Patch 24 Hour 1 patch TRANSDERMAL DAILY PRN (Reason: Nicotine Cravings) 0RF Referrals: [facility] [Provider Group] - 1 day Physician,Unknown J [Primary Care Provider] - Stand Alone Forms: Work/School Release
[2022-01-22 17:45] VITALS: BP 138/79; BP 164/78; PULSE 82; PULSE 90; RESP 18; TEMP 37.2; O2SAT 98; BMI 44.0
[2022-01-22 18:16] LABS: Appearance Urine CLEAR; Color Urine YELLOW; Glucose Urine UA NEG (NEG); Leukocyte Esterase Urine NEG (NEG); Nitrite Urine NEG (NEG); Specific Gravity - Urine <= 1.005 (1.005-1.025); Urine Blood NEG (NEG); Urine Ketones NEG (NEG); Urine Protein NEG (NEG-TRACE)
[2022-01-22 18:32] LABS: Amphetamine Screen Urine Not Detected (Not Detect); Barbiturates, Urine Not Detected (Not Detect); Benzodiazepines Screen Urine Not Detected (Not Detect); Cannabinoid Screen Urine Not Detected (Not Detect); Cocaine Screen Urine Not Detected (Not Detect); Fentanyl, urine Not Detected (Not Detect); Opiate Screen Urine Not Detected (Not Detect); Phencyclidine Screen Urine Not Detected (Not Detect)
[2022-01-22 18:41] LABS: COVID-19 Test Negative (Negative)
--- NOTE | 2022-01-22 19:25 | MHC.CARE ---
Pt. was brought in via EMS, due to increased auditory command hallucinations that instruct her to kill herself. Pt. was provided a space and when she was calm she was seen by CARE Team. She stated that since her arrival to the ER, her voices have diminished and she feels that the she should go home. T/W then spoke to [facility] Staff, Tia, whom reported that Pt. told her earlier in the day, that if Pt. was to go into the ER and state that she was fine, pt. would be providing lip service. When Pt. was confronted in regards to this, she stated that she really felt that she was safe to go home and that she she did not need an INPT admission. She continued to state that she wants to go home, take her PRN's, and smoke her cigarettes. Pending lab work. [facility]. will be [facility] to [facility].
[2022-01-22 19:27] LABS: MANUAL DIFF FLAG NO
[2022-01-22 19:30] LABS: Basophils Percent Auto 0.4 % (0-2); Eosinophils Absolute Auto 0.3 X10*3/uL (0.0-0.4); Eosinophils Percent Auto 4.4 % (0-4); Hematocrit 39.9 % (37.0-47.0); Hemoglobin 12.9 g/dl (12.0-16.0); Imm Gran Abs Auto 0.04 X10*3/uL (0.00-0.03); Imm Gran Pct Auto 0.5 % (0.0-0.4); Lymphocytes Absolute Auto 1.7 X10*3/uL (1.2-4.9); Lymphocytes Percent Auto 22.5 % (20-40); Mean Corpuscular HGB Conc 32.3 g/dl (31.0-35.0); Mean Corpuscular Volume 89.7 fL (80.0-98.0); Mean Platelet Volume 9.7 fL (9.4-12.3); Monocytes Absolute Auto 0.6 X10*3/uL (0.1-1.2); Monocytes Percent Auto 7.3 % (2-11); Neutrophils Percent Auto 64.9 % (45-73); Platelet Count 265 X10*3/uL (160-400); Red Blood Count 4.45 X10*6/uL (4.20-5.50); Red Cell Distribution Width 13.2 % (11.0-16.0); White Blood Count 7.7 X10*3/uL (4.8-10.8)
[2022-01-22 19:39] LABS: Ethanol < 10 mg/dL
[2022-01-22 19:41] LABS: Anion Gap 12 (12-20); Blood Urea Nitrogen 6 mg/dL (9-16); Calcium 8.8 mg/dL (8.4-10.2); Carbon Dioxide 23 mmol/L (22-29); Chloride 104 mmol/L (96-108); Creatinine Clr Calc Pharmacy 117.9; Estimated Glomerular Filt Rate > 60; Glucose Random 103 mg/dL (60-115); Potassium 3.9 mmol/L (3.3-5.1); Sodium 135 mmol/L (135-145)
== END 2022-01-22 20:09 | disposition home or self-care (01) ==
PROVIDERS: Physician Assistant; Emergency Provider Internal Medicine
DX: F33.1 Major depressive disorder, recurrent, moderate (principal); R45.851 Suicidal ideations; F41.1 Generalized anxiety disorder; F43.0 Acute stress reaction; Z79.899 Other long term (current) drug therapy; Z20.822 Contact with and (suspected) exposure to COVID-19; F17.210 Nicotine dependence, cigarettes, uncomplicated; Z71.9 Counseling, unspecified
CPT/HCPCS: 36415; 80048; 80307; 81003; 82077; 85025; 87635; 99283

== ENCOUNTER 2022-01-23 09:55 | Emergency (ER) | payer MEDICARE, MEDICAID, SELFPAY ==
--- NOTE | 2022-01-23 10:23 | ED.PSYCH ---
HPI - Psych General Chief Complaint: Psychiatric Symptoms Stated Complaint: SECTION 12, SI,WATS TO HARM SELF NO PLAN Time Seen by Provider: 01/23/22 10:23 Source: patient Mode of arrival: EMS Limitations: no limitations History of Present Illness MD complaint: suicidal ideation, feels depressed and hallucinations Onset (ago): week(s) Duration: intermittent History of same: Yes Relieving factors: none Exacerbating factors: none Context: other (hx of similar bouts in past) Associated psychiatric symptoms: depression and auditory hallucinations Associated symptoms: denies other symptoms Treatments prior to arrival: none and placed on mental health hold If self harm: admits thoughts of self harm Related Data Home Medications Medication Instructions Recorded Confirmed polyethylene glycol 3350 17 gram 17 g PO DAILY PRN 02/12/21 01/17/22 oral powder packet (Miralax) atorvastatin 10 mg tablet 1 tab PO DAILY 05/29/21 01/17/22 ferrous sulfate 325 mg (65 mg 1 tab PO DAILY 05/29/21 01/17/22 iron) tablet,delayed release fluticasone propionate 110 2 puff INHALATION BID 05/29/21 01/17/22 mcg/actuation HFA aerosol inhaler (Flovent HFA) metformin 500 mg tablet 1 tab PO BID 05/29/21 01/17/22 montelukast 10 mg tablet 1 tab PO BEDTIME 05/29/21 01/17/22 norethindrone (contraceptive) 0.35 0.35 mg PO DAILY 05/29/21 01/17/22 mg tablet (Deblitane) pantoprazole 40 mg tablet,delayed 1 tab PO BID@0630,1630 05/29/21 01/17/22 release verapamil 240 mg tablet,extended 1 tab PO BEDTIME 05/29/21 01/17/22 release albuterol sulfate 90 mcg/actuation 2 puff INHALATION Q4H PRN 06/15/21 01/17/22 aerosol inhaler (Ventolin HFA) ibuprofen 600 mg tablet 600 mg PO Q6H PRN 09/19/21 01/17/22 trazodone 150 mg tablet 150 mg PO BEDTIME PRN 11/05/21 01/17/22 clonazepam 0.5 mg tablet 0.5 mg PO QID PRN 11/11/21 01/17/22 lisinopril 5 mg tablet 1 tab PO DAILY 11/14/21 01/17/22 nicotine 21 mg/24 hr daily 1 patch TRANSDERMAL DAILY PRN 11/14/21 01/17/22 transdermal patch benztropine 1 mg tablet 1 mg PO QAM 12/26/21 01/17/22 chlorpromazine 25 mg tablet 75 mg PO BID PRN 12/26/21 01/17/22 chlorpromazine 25 mg tablet 75 mg PO QAM 12/26/21 01/17/22 Previous Rx's Medication Instructions Recorded hydroxyzine HCl 50 mg tablet 50 mg PO QID PRN 30 Days #120 tab 07/27/21 fluoxetine 20 mg capsule 40 mg PO DAILY 30 Days #60 cap 09/29/21 mirtazapine 7.5 mg tablet 7.5 mg PO BEDTIME MRX1 30 Days #60 10/18/21 tab prazosin 1 mg capsule 4 mg PO BEDTIME 30 Days #120 cap 10/18/21 Allergies Allergy/AdvReac Type Severity Reaction Status Date / Time Fish Containing Products Allergy Severe ANAPHYLAXIS Verified 11/14/21 08:35 codeine [Codeine] Allergy Unknown RASH Verified 11/14/21 08:35 Penicillins Allergy Unknown RASH Verified 11/14/21 08:35 prednisone [Prednisone] Allergy Unknown RASH Verified 11/14/21 08:35 Sulfa (Sulfonamide Allergy Unknown RASH Verified 11/14/21 08:35 Antibiotics) [Sulfa (Sulfonamides)] azithromycin [AZITHROMYCIN] AdvReac Severe RASH Verified 11/14/21 08:35 nicotine AdvReac Unknown HEART Verified 11/14/21 08:35 PALPITATION TO NICOTINE GUM Seafood Allergy Severe ANAPHYLAXIS Uncoded 11/05/21 21:13 From Geodon Allergy Unknown DYSURIA, Uncoded 11/05/21 21:13 RASH Review of Systems Review of Systems: Constitutional : No Fever, No Chills ENT/Mouth : No Ear Pain, No Nasal Congestion, No sore throat Eyes: No Eye Pain, No Swelling, No Redness Cardiovascular : No Chest Pain, No SOB Respiratory : No Cough, No Sputum, No Dyspnea Gastrointestinal : No Nausea, No Vomiting, No Diarrhea, No Hematochezia, No Melena Genitourinary : No Dysuria, No Urinary Frequency, No Hematuria Musculoskeletal : No Myalgias Skin : No Skin Lesions, No rash Neuro : No Weakness, No Numbness, No Paresthesias, No Dizziness, No Headache Psych : positive Anxiety, positive Depression, positive SI no HI, pos AH Heme/Lymph: No Lymphadenopathy Endocrine : No Polyuria, No Polydipsia All other systems reviewed and are negative [facility] Past Medical History Attestation statement: The following information was validated with the patient. Medical History Bronchitis Diabetes type 2, controlled GERD (gastroesophageal reflux disease) Hyperlipidemia MDD (major depressive disorder), recurrent episode, severe Mood disorder Overdose PTSD (post-traumatic stress disorder) Social History Social History 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: None 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 Other:: Patient lives in senior care. 4 in total live in senior care. Housing: Other Housing Other:: custodial Do you presently have visiting nurse or other home services: No (Medication administered by senior care staff) Unable to assess alcohol history related to: Unknown Alcohol intake: never Patient Tobacco Use Status: Current everyday Tobacco user Tobacco use type: Cigarette Cigarette Packs Per Day: 1 Cigarettes Per Day: 20 Years Smoked: 20 e-Cigarette/Vaping Use: Never Used Second Hand Smoke Exposure: Yes Substance Use Type: Caffiene Advance Directives: No Advance Directives Information Provided: No Patient : No service: No Sexual orientation: Don't Know Physical Exam Vital Signs: Vital Signs: Last Vital Signs Temp 98 F 01/23/22 10:36 Pulse 90 01/23/22 10:36 Resp 16 01/23/22 10:36 BP 123/71 01/23/22 10:36 Pulse Ox 97 01/23/22 10:36 BMI result Body Mass Index 46.2 Appearance: Alert. Oriented X3. No acute distress. Anxious I want help. I say I want to leave sometimes so I can go smoke a cigarette. Eyes: Pupils equal, round and reactive to light. ENT: Pharynx normal. Neck: Normal inspection. Neck supple. CVS: Normal heart rate and rhythm. Pulses normal. Respiratory: No respiratory distress. Breath sounds normal. Abdomen: Soft and nontender. Skin: Skin warm and dry. Normal skin color. Normal skin turgor. Extremities: No lower extremity edema. No calf ttp Neuro: Oriented X 3. No motor deficit. No sensory deficit. Course Course Course Narrative: cleared by CARE team - to go back to senior care MDM - Psych MDM Narrative Medical decision making narrative: 46 yo female well known to us for mental health issues along with chronic thoughts of self harm, AH - at this time she has similar reports and complaints of same - will obtain COVID swab, give nicotine patch and obtain CARE team consult Lab Data Labs: Lab Results 01/23/22 Range/Units 11:28 COVID-19 (NICK) Negative (Negative) COVID-19 Clin Com See Note Discharge Plan Discharge Clinical Impression: Borderline personality disorder Patient Disposition: Home, Self-Care Instructions: Borderline Personality Disorder (DC) Additional Instructions: return to ED for any worsening symptoms or concerns please follow up with your outpatient mental health providers Prescriptions: No Action polyethylene glycol 3350 [Miralax] 17 gram Powder In Packet 17 g PO DAILY PRN (Reason: Constipation) 0RF metformin 500 mg tablet 1 tab PO BID 0RF atorvastatin 10 mg tablet 1 tab PO DAILY 0RF pantoprazole 40 mg tablet,delayed release (DR/EC) 1 tab PO BID@0630,1630 0RF verapamil 240 mg tablet extended release 1 tab PO BEDTIME 0RF montelukast 10 mg tablet 1 tab PO BEDTIME 0RF ferrous sulfate 325 mg (65 mg iron) tablet,delayed release (DR/EC) 1 tab PO DAILY 0RF Flovent HFA 110 mcg/actuation HFA aerosol inhaler 2 puff inhalation BID 0RF norethindrone (contraceptive) [Deblitane] 0.35 mg Tablet 0.35 mg PO DAILY 0RF albuterol sulfate [Ventolin HFA] 90 mcg/actuation HFA aerosol inhaler 2 puff inhalation Q4H PRN (Reason: Shortness Of Breath) 0RF trazodone 150 mg tablet 150 mg PO BEDTIME PRN (Reason: insomnia) 0RF clonazepam 0.5 mg tablet 0.5 mg PO QID PRN (Reason: anxiety/AH) 0RF Rx Instructions: may take within 1 hour of each other; max dose 1mg daily benztropine 1 mg tablet 1 mg PO QAM 0RF chlorpromazine 25 mg Tablet 75 mg PO QAM 0RF chlorpromazine 25 mg tablet 75 mg PO BID PRN (Reason: agitation) 0RF hydroxyzine HCl 50 mg Tablet 50 mg PO QID PRN (Reason: Anxiety) 30 Days Qty: 120 0RF ibuprofen 600 mg Tablet 600 mg PO Q6H PRN (Reason: Mild Pain (Scale Score 1-4)) 0RF fluoxetine 20 mg Capsule 40 mg PO DAILY 30 Days Qty: 60 0RF prazosin 1 mg Capsule 4 mg PO BEDTIME 30 Days Qty: 120 0RF Protocol: Hold for SBP< HOLD for SBP < : 90 mirtazapine 7.5 mg Tablet 7.5 mg PO BEDTIME MRX1 30 Days Qty: 60 0RF lisinopril 5 mg tablet 1 tab PO DAILY 0RF nicotine 21 mg/24 hr Patch 24 Hour 1 patch TRANSDERMAL DAILY PRN (Reason: Nicotine Cravings) 0RF
[2022-01-23 10:36] VITALS: BP 123/71; BP 140/100; PULSE 85; PULSE 90; RESP 16; TEMP 36.6; O2SAT 97; BMI 46.2
[2022-01-23] MEDS: Nicotine 21 MG PATCH.TD24 TRANSDERMA (10:50)
[2022-01-23 12:00] LABS: COVID-19 Test Negative (Negative)
--- NOTE | 2022-01-23 13:27 | MHC.CARE ---
CARE Team meets with pt at her request. She identifies hearing voices telling her to harm herself, which is part of pt's baseline presentation, prior to arriving to the ED. Pt states that she spoke with her staff and then called 911 herself. Pt states that she can keep herself safe and would like to discharge to home. Pt identifies that she will go home and take a nap, then watch [place] and color with staff. CARE Team will make a check in call to pt this evening.
== END 2022-01-23 14:27 | disposition home or self-care (01) ==
PROVIDERS: Emergency Provider Emergency Medicine; PCP Nurse Practitioner Family
DX: F60.3 Borderline personality disorder (principal); R45.851 Suicidal ideations; F32.A Depression, unspecified; R44.0 Auditory hallucinations; F43.10 Post-traumatic stress disorder, unspecified; Z20.822 Contact with and (suspected) exposure to COVID-19; E11.9 Type 2 diabetes mellitus without complications; E78.5 Hyperlipidemia, unspecified; F17.200 Nicotine dependence, unspecified, uncomplicated; Z91.51 Personal history of suicidal behavior; Z79.02 Long term (current) use of antithrombotics/antiplatelets; Z79.899 Other long term (current) drug therapy
CPT/HCPCS: 87635; 99283

== ENCOUNTER 2022-01-23 19:42 | Emergency (ER) | payer MEDICARE, MEDICAID, SELFPAY ==
[2022-01-23 19:51] VITALS: BP 152/98; PULSE 104; O2SAT 98
[2022-01-23 19:53] VITALS: BP 148/79; PULSE 81; RESP 18; TEMP 37.4; O2SAT 95; BMI 38.6
--- NOTE | 2022-01-23 19:56 | ED_ITS ---
HPI - Psych General Chief Complaint: Psychiatric Symptoms Stated Complaint: crisis Source: patient and EMS Mode of arrival: EMS Limitations: no limitations History of Present Illness HPI Narrative: 46-year-old female presents via EMS for suicidal ideation with plan to overdose on pills. MD complaint: suicidal ideation, feels depressed and anxiety Onset (ago): year(s) Duration: constant History of same: Yes Relieving factors: none Associated psychiatric symptoms: depression and suicidal ideation Associated symptoms: denies other symptoms Treatments prior to arrival: placed on mental health hold If self harm: admits thoughts of self harm and has plan Related Data Home Medications Medication Instructions Recorded Confirmed atorvastatin 10 mg tablet 1 tab PO DAILY 05/29/21 01/23/22 fluticasone propionate 110 2 puff INHALATION BID 05/29/21 01/23/22 mcg/actuation HFA aerosol inhaler (Flovent HFA) metformin 500 mg tablet 1 tab PO BID 05/29/21 01/23/22 montelukast 10 mg tablet 1 tab PO BEDTIME 05/29/21 01/23/22 pantoprazole 40 mg tablet,delayed 1 tab PO BID@0630,1630 05/29/21 01/23/22 release verapamil 240 mg tablet,extended 1 tab PO BEDTIME 05/29/21 01/23/22 release albuterol sulfate 90 mcg/actuation 2 puff INHALATION Q4H PRN 06/15/21 01/23/22 aerosol inhaler (Ventolin HFA) trazodone 150 mg tablet 150 mg PO BEDTIME PRN 11/05/21 01/23/22 clonazepam 0.5 mg tablet 0.5 mg PO BID PRN 11/11/21 01/23/22 lisinopril 5 mg tablet 1 tab PO DAILY 11/14/21 01/23/22 nicotine 21 mg/24 hr daily 1 patch TRANSDERMAL DAILY PRN 11/14/21 01/23/22 transdermal patch benztropine 1 mg tablet 1 mg PO BID 12/26/21 01/23/22 chlorpromazine 25 mg tablet 75 mg PO BID PRN 12/26/21 01/23/22 naproxen 500 mg tablet 1 tab PO BID 01/23/22 01/23/22 Previous Rx's Medication Instructions Recorded hydroxyzine HCl 50 mg tablet 50 mg PO QID PRN 30 Days #120 tab 07/27/21 fluoxetine 20 mg capsule 40 mg PO DAILY 30 Days #60 cap 09/29/21 mirtazapine 7.5 mg tablet 7.5 mg PO BEDTIME MRX1 30 Days #60 10/18/21 tab prazosin 1 mg capsule 4 mg PO BEDTIME 30 Days #120 cap 10/18/21 Allergies Allergy/AdvReac Type Severity Reaction Status Date / Time Fish Containing Products Allergy Severe ANAPHYLAXIS Verified 11/14/21 08:35 codeine [Codeine] Allergy Unknown RASH Verified 11/14/21 08:35 Penicillins Allergy Unknown RASH Verified 11/14/21 08:35 prednisone [Prednisone] Allergy Unknown RASH Verified 11/14/21 08:35 Sulfa (Sulfonamide Allergy Unknown RASH Verified 11/14/21 08:35 Antibiotics) [Sulfa (Sulfonamides)] azithromycin [AZITHROMYCIN] AdvReac Severe RASH Verified 11/14/21 08:35 nicotine AdvReac Unknown HEART Verified 11/14/21 08:35 PALPITATION TO NICOTINE GUM Seafood Allergy Severe ANAPHYLAXIS Uncoded 11/05/21 21:13 From Geodon Allergy Unknown DYSURIA, Uncoded 11/05/21 21:13 RASH Review of Systems Review of Systems: Constitutional: No Fever, No Chills ENT/Mouth: No Ear Pain, No Nasal Congestion, No sore throat Eyes: No Eye Pain, No Swelling, No Redness Cardiovascular: No Chest Pain, No SOB Respiratory: No Cough, No Sputum, No Dyspnea Gastrointestinal: No Nausea, No Vomiting, No Diarrhea, No Hematochezia, No Melena Genitourinary: No Dysuria, No Urinary Frequency, No Hematuria Musculoskeletal: No Myalgias Skin: No Skin Lesions, No rash Neuro: No Weakness, No Numbness, No Paresthesias, No Dizziness, No Headache Psych: positive Anxiety, positive Depression, positive SI Heme/Lymph: No Lymphadenopathy Endocrine: No Polyuria, No Polydipsia Yes all other systems are reviewed and are negative [facility] Past Medical History Attestation statement: The following information was validated with the patient. Source: old records reviewed Medical History Bronchitis Diabetes type 2, controlled GERD (gastroesophageal reflux disease) Hyperlipidemia MDD (major depressive disorder), recurrent episode, severe Mood disorder Overdose PTSD (post-traumatic stress disorder) Social History Social History 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: None 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 Other:: Patient lives in alf. 4 in total live in alf. Housing: Other Housing Other:: longterm Do you presently have visiting nurse or other home services: No (Medication administered by alf staff) Unable to assess alcohol history related to: Unknown Alcohol intake: never Patient Tobacco Use Status: Current everyday Tobacco user Tobacco use type: Cigarette Cigarette Packs Per Day: 1 Cigarettes Per Day: 20 Years Smoked: 20 e-Cigarette/Vaping Use: Never Used Second Hand Smoke Exposure: Yes Substance Use Type: Caffiene Advance Directives: No Patient : No service: No Sexual orientation: Don't Know Physical Exam Vital Signs: Vital Signs: Last Vital Signs Temp 99.4 F 01/23/22 19:53 Pulse 81 01/23/22 19:53 Resp 18 01/23/22 19:53 BP 148/79 H 01/23/22 19:53 Pulse Ox 95 01/23/22 19:53 BMI result Body Mass Index 38.6 Appearance: Alert. Oriented X3. Moderate emotional distress. Eyes: Pupils equal, round and reactive to light. ENT: Pharynx normal. Neck: Normal inspection. Neck supple. CVS: Normal heart rate and rhythm. Pulses normal. Respiratory: No respiratory distress. Breath sounds normal. Abdomen: Soft and nontender. Skin: Skin warm and dry. Normal skin color. Normal skin turgor. Extremities: No lower extremity edema. Gait well-balanced well coordinated. Neuro: No motor deficit. No sensory deficit. Cranial nerves 2-12 intact. Course Course Course Narrative: 46-year-old female well known to this facility presents via EMS for suicidal ideation with plan to overdose. She does present with a Section 12 from [facility] and is a bed search. She does have a care plan in place and presents to this facility on a daily basis. 21:47 patient is physician observation at this time. MDM - Psych Differential Diagnosis Differential diagnosis: Likely acute psychosis, suicidal ideation, depression, acute anxiety and mood disorder Medical Records Attestation: I reviewed the patient's medical records. Lab Data Attestation: I reviewed the patient's lab results. Labs: Lab Results 01/23/22 01/23/22 Range/Units 20:30 20:30 Urine Opiates Screen Not Detected (Not Detect) Urine Fentanyl Screen Not Detected (Not Detect) Ur Barbiturates Screen Not Detected (Not Detect) Ur Phencyclidine Scrn Not Detected (Not Detect) Ur Amphetamines Screen Not Detected (Not Detect) U Benzodiazepines Scrn Not Detected (Not Detect) Urine Cocaine Screen Not Detected (Not Detect) U Marijuana (THC) Screen Not Detected (Not Detect) COVID-19 (NICK) Negative (Negative) COVID-19 Clin Com See Note Discharge Plan Discharge Clinical Impression: Borderline personality disorder, Depression, PTSD (post-traumatic stress disorder), Acute psychosis Patient Disposition: Still a Patient Instructions: Depression (ED), Post Traumatic Stress Disorder (ED) Prescriptions: No Action metformin 500 mg tablet 1 tab PO BID 0RF atorvastatin 10 mg tablet 1 tab PO DAILY 0RF pantoprazole 40 mg tablet,delayed release (DR/EC) 1 tab PO BID@0630,1630 0RF verapamil 240 mg tablet extended release 1 tab PO BEDTIME 0RF montelukast 10 mg tablet 1 tab PO BEDTIME 0RF Flovent HFA 110 mcg/actuation HFA aerosol inhaler 2 puff inhalation BID 0RF albuterol sulfate [Ventolin HFA] 90 mcg/actuation HFA aerosol inhaler 2 puff inhalation Q4H PRN (Reason: Shortness Of Breath) 0RF trazodone 150 mg tablet 150 mg PO BEDTIME PRN (Reason: insomnia) 0RF clonazepam 0.5 mg tablet 0.5 mg PO BID PRN (Reason: anxiety/AH) 0RF Rx Instructions: may take within 1 hour of each other; max dose 1mg daily benztropine 1 mg tablet 1 mg PO BID 0RF chlorpromazine 25 mg tablet 75 mg PO BID PRN (Reason: agitation) 0RF naproxen 500 mg tablet 1 tab PO BID 0RF hydroxyzine HCl 50 mg Tablet 50 mg PO QID PRN (Reason: Anxiety) 30 Days Qty: 120 0RF fluoxetine 20 mg Capsule 40 mg PO DAILY 30 Days Qty: 60 0RF prazosin 1 mg Capsule 4 mg PO BEDTIME 30 Days Qty: 120 0RF Protocol: Hold for SBP< HOLD for SBP < : 90 mirtazapine 7.5 mg Tablet 7.5 mg PO BEDTIME MRX1 30 Days Qty: 60 0RF lisinopril 5 mg tablet 1 tab PO DAILY 0RF nicotine 21 mg/24 hr Patch 24 Hour 1 patch TRANSDERMAL DAILY PRN (Reason: Nicotine Cravings) 0RF
--- NOTE | 2022-01-23 20:55 | PC.NURSE ---
pt pacing states she is hearing voices telling her to harm herself.
[2022-01-23 20:59] LABS: Amphetamine Screen Urine Not Detected (Not Detect); Barbiturates, Urine Not Detected (Not Detect); Benzodiazepines Screen Urine Not Detected (Not Detect); Cannabinoid Screen Urine Not Detected (Not Detect); Cocaine Screen Urine Not Detected (Not Detect); Fentanyl, urine Not Detected (Not Detect); Opiate Screen Urine Not Detected (Not Detect); Phencyclidine Screen Urine Not Detected (Not Detect)
[2022-01-23 21:00] LABS: COVID-19 Test Negative (Negative)
[2022-01-24 05:42] VITALS: BP 142/76; PULSE 74; RESP 17; TEMP 37.2; O2SAT 95
[2022-01-24] MEDS: metFORMIN HCl 500 MG TABLET PO (10:31)
[2022-01-24] MEDS: Benztropine Mesylate 1 MG TABLET PO (10:31)
[2022-01-24] MEDS: FLUoxetine HCl 20 MG CAPSULE 40 MG PO (10:31)
[2022-01-24] MEDS: lisinopriL 5 MG TABLET PO (10:31)
[2022-01-24] MEDS: Atorvastatin Calcium 10 MG TABLET PO (10:32)
[2022-01-24] MEDS: Omeprazole 20 MG CAPSULE.DR PO (10:32)
[2022-01-24] MEDS: NaPROXEN 500 MG TABLET PO (10:35)
--- NOTE | 2022-01-24 11:13 | MHC.CARE ---
Pt approaches CARE Team reporting that she would like to go back to her [facility], as she is now feeling better after having good sleep. Pt ws seen by NADYA yesterday and discharged home with plan for a check in call by the CARE Team. When CARE Team reached out to pt, BAN was there assessing her. CARLOSN made pt a bedsearch and she was sent to the ED. CARE Team recieves a call from Toni Pittman, pt's warehouse order puller, who is in agreement that if pt is voicing that she can be safe in the fci, she should return. Case is discussed with TIMI Bender, who agrees to discharge pt back to the fci. CARE Team will reach out with a call at approx [phone]. Pt's presentation of AH and self harm/suicidal ideation is consistent with her baseline and is not mitigated by inpt admissions, as this is likely rooted in trauma.
--- NOTE | 2022-01-24 19:23 | MHC.CARE ---
CARE Team attempted to call pt at [phone] for a follow up call and left a voicemail. CARE Team will attempt again later.
== END 2022-01-24 11:26 | disposition home or self-care (01) ==
PROVIDERS: Emergency Provider Emergency Medicine; PCP Nurse Practitioner Family
DX: F23 Brief psychotic disorder (principal); F60.3 Borderline personality disorder; F32.A Depression, unspecified; R45.851 Suicidal ideations; F43.10 Post-traumatic stress disorder, unspecified; F41.9 Anxiety disorder, unspecified; Z20.822 Contact with and (suspected) exposure to COVID-19; E11.9 Type 2 diabetes mellitus without complications; E78.5 Hyperlipidemia, unspecified; F17.200 Nicotine dependence, unspecified, uncomplicated; Z91.51 Personal history of suicidal behavior; Z79.02 Long term (current) use of antithrombotics/antiplatelets; Z79.899 Other long term (current) drug therapy
CPT/HCPCS: 80307; 87635; 99283; 99284

== ENCOUNTER 2022-01-25 17:30 | Emergency (ER) | payer MEDICARE, MEDICAID, SELFPAY ==
--- NOTE | 2022-01-25 17:42 | ED_ITS ---
HPI - Psych General Chief Complaint: Psychiatric Symptoms Stated Complaint: crisis Source: patient Mode of arrival: ambulatory Limitations: no limitations History of Present Illness HPI Narrative: 46-year-old female presents via EMS for suicidal ideation, and self-harm. MD complaint: suicidal ideation, feels depressed and anxiety Onset (ago): year(s) Duration: constant History of same: Yes Relieving factors: none Exacerbating factors: none Associated psychiatric symptoms: depression and suicidal ideation Associated symptoms: denies other symptoms Treatments prior to arrival: none If self harm: admits thoughts of self harm and has plan Related Data Home Medications Medication Instructions Recorded Confirmed atorvastatin 10 mg tablet 1 tab PO DAILY 05/29/21 01/23/22 fluticasone propionate 110 2 puff INHALATION BID 05/29/21 01/23/22 mcg/actuation HFA aerosol inhaler (Flovent HFA) metformin 500 mg tablet 1 tab PO BID 05/29/21 01/23/22 montelukast 10 mg tablet 1 tab PO BEDTIME 05/29/21 01/23/22 pantoprazole 40 mg tablet,delayed 1 tab PO BID@0630,1630 05/29/21 01/23/22 release verapamil 240 mg tablet,extended 1 tab PO BEDTIME 05/29/21 01/23/22 release albuterol sulfate 90 mcg/actuation 2 puff INHALATION Q4H PRN 06/15/21 01/23/22 aerosol inhaler (Ventolin HFA) trazodone 150 mg tablet 150 mg PO BEDTIME PRN 11/05/21 01/23/22 clonazepam 0.5 mg tablet 0.5 mg PO BID PRN 11/11/21 01/23/22 lisinopril 5 mg tablet 1 tab PO DAILY 11/14/21 01/23/22 nicotine 21 mg/24 hr daily 1 patch TRANSDERMAL DAILY PRN 11/14/21 01/23/22 transdermal patch benztropine 1 mg tablet 1 mg PO BID 12/26/21 01/23/22 chlorpromazine 25 mg tablet 75 mg PO BID PRN 12/26/21 01/23/22 naproxen 500 mg tablet 1 tab PO BID 01/23/22 01/23/22 Previous Rx's Medication Instructions Recorded hydroxyzine HCl 50 mg tablet 50 mg PO QID PRN 30 Days #120 tab 07/27/21 fluoxetine 20 mg capsule 40 mg PO DAILY 30 Days #60 cap 09/29/21 mirtazapine 7.5 mg tablet 7.5 mg PO BEDTIME MRX1 30 Days #60 10/18/21 tab prazosin 1 mg capsule 4 mg PO BEDTIME 30 Days #120 cap 10/18/21 Allergies Allergy/AdvReac Type Severity Reaction Status Date / Time Fish Containing Products Allergy Severe ANAPHYLAXIS Verified 11/14/21 08:35 codeine [Codeine] Allergy Unknown RASH Verified 11/14/21 08:35 Penicillins Allergy Unknown RASH Verified 11/14/21 08:35 prednisone [Prednisone] Allergy Unknown RASH Verified 11/14/21 08:35 Sulfa (Sulfonamide Allergy Unknown RASH Verified 11/14/21 08:35 Antibiotics) [Sulfa (Sulfonamides)] azithromycin [AZITHROMYCIN] AdvReac Severe RASH Verified 11/14/21 08:35 nicotine AdvReac Unknown HEART Verified 11/14/21 08:35 PALPITATION TO NICOTINE GUM Seafood Allergy Severe ANAPHYLAXIS Uncoded 11/05/21 21:13 From Geodon Allergy Unknown DYSURIA, Uncoded 11/05/21 21:13 RASH Review of Systems Review of Systems: Constitutional: No Fever, No Chills ENT/Mouth: No Ear Pain, No Nasal Congestion, No sore throat Eyes: No Eye Pain, No Swelling, No Redness Cardiovascular: No Chest Pain, No SOB Respiratory: No Cough, No Sputum, No Dyspnea Gastrointestinal: No Nausea, No Vomiting, No Diarrhea, No Hematochezia, No Melena Genitourinary: No Dysuria, No Urinary Frequency, No Hematuria Musculoskeletal: No Myalgias Skin: No Skin Lesions, No rash Neuro: No Weakness, No Numbness, No Paresthesias, No Dizziness, No Headache Psych: positive Anxiety, positive Depression, positive SI Heme/Lymph: No Lymphadenopathy Endocrine: No Polyuria, No Polydipsia Yes all other systems are reviewed and are negative [facility] Past Medical History Attestation statement: The following information was validated with the patient. Source: old records reviewed Medical History Bronchitis Diabetes type 2, controlled GERD (gastroesophageal reflux disease) Hyperlipidemia MDD (major depressive disorder), recurrent episode, severe Mood disorder Overdose PTSD (post-traumatic stress disorder) Social History Social History 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: None 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 Other:: Patient lives in longterm. 4 in total live in longterm. Housing: Other Housing Other:: halfway Do you presently have visiting nurse or other home services: No (Medication administered by longterm staff) Unable to assess alcohol history related to: Unknown Alcohol intake: never Patient Tobacco Use Status: Current everyday Tobacco user Tobacco use type: Cigarette Cigarette Packs Per Day: 1 Cigarettes Per Day: 20 Years Smoked: 20 e-Cigarette/Vaping Use: Never Used Second Hand Smoke Exposure: Yes Substance Use Type: Caffiene Advance Directives: No Advance Directives Information Provided: No Patient : No service: No Sexual orientation: Don't Know Physical Exam Vital Signs: Vital Signs: Last Vital Signs Temp 99.6 F 01/25/22 17:50 Pulse 103 H 01/25/22 17:50 Resp 18 01/25/22 17:50 BP 148/104 H 01/25/22 17:50 Pulse Ox 95 01/25/22 17:50 BMI result Body Mass Index 44.1 Appearance: Alert. Oriented X3. No acute distress. Eyes: Pupils equal, round and reactive to light. ENT: Pharynx normal. Neck: Normal inspection. Neck supple. CVS: Normal heart rate and rhythm. Pulses normal. Respiratory: No respiratory distress. Breath sounds normal. Abdomen: Soft and nontender. Skin: Skin warm and dry. Multiple superficial lacerations have been self- inflicted. Normal skin turgor. Extremities: No lower extremity edema. Gait well-balanced well coordinated. Neuro: No motor deficit. No sensory deficit. Cranial nerves 2-12 intact. Course Course Course Narrative: 46-year-old female presents via EMS from a longterm for suicidal ideation and intent to self-harm. Patient presents to this facility a [facility] on daily basis and has care plan in place. 21:10 plan of care is to discharge home. MDM - Psych Differential Diagnosis Differential diagnosis: Likely acute psychosis, suicidal ideation, depression and acute anxiety Medical Records Attestation: I reviewed the patient's medical records. Lab Data Attestation: I reviewed the patient's lab results. Labs: Lab Results 01/25/22 01/25/22 Range/Units 18:04 18:04 Urine Opiates Screen Not Detected (Not Detect) Urine Fentanyl Screen Not Detected (Not Detect) Ur Barbiturates Screen Not Detected (Not Detect) Ur Phencyclidine Scrn Not Detected (Not Detect) Ur Amphetamines Screen Not Detected (Not Detect) U Benzodiazepines Scrn Not Detected (Not Detect) Urine Cocaine Screen Not Detected (Not Detect) U Marijuana (THC) Screen Not Detected (Not Detect) COVID-19 (NICK) Negative (Negative) COVID-19 Clin Com See Note Discharge Plan Discharge Clinical Impression: Borderline personality disorder, Depression Patient Disposition: Home, Self-Care Instructions: Depression (ED), Borderline Personality Disorder (DC) Additional Instructions: Follow-up with outpatient psychiatry as scheduled. Thank you for choosing this emergency department for evaluation. Please follow-up with primary care physician as needed. Return to the emergency department for any new, concerning, or worsening symptoms. Prescriptions: No Action metformin 500 mg tablet 1 tab PO BID 0RF atorvastatin 10 mg tablet 1 tab PO DAILY 0RF pantoprazole 40 mg tablet,delayed release (DR/EC) 1 tab PO BID@0630,1630 0RF verapamil 240 mg tablet extended release 1 tab PO BEDTIME 0RF montelukast 10 mg tablet 1 tab PO BEDTIME 0RF Flovent HFA 110 mcg/actuation HFA aerosol inhaler 2 puff inhalation BID 0RF albuterol sulfate [Ventolin HFA] 90 mcg/actuation HFA aerosol inhaler 2 puff inhalation Q4H PRN (Reason: Shortness Of Breath) 0RF trazodone 150 mg tablet 150 mg PO BEDTIME PRN (Reason: insomnia) 0RF clonazepam 0.5 mg tablet 0.5 mg PO BID PRN (Reason: anxiety/AH) 0RF Rx Instructions: may take within 1 hour of each other; max dose 1mg daily benztropine 1 mg tablet 1 mg PO BID 0RF chlorpromazine 25 mg tablet 75 mg PO BID PRN (Reason: agitation) 0RF naproxen 500 mg tablet 1 tab PO BID 0RF hydroxyzine HCl 50 mg Tablet 50 mg PO QID PRN (Reason: Anxiety) 30 Days Qty: 120 0RF fluoxetine 20 mg Capsule 40 mg PO DAILY 30 Days Qty: 60 0RF prazosin 1 mg Capsule 4 mg PO BEDTIME 30 Days Qty: 120 0RF Protocol: Hold for SBP< HOLD for SBP < : 90 mirtazapine 7.5 mg Tablet 7.5 mg PO BEDTIME MRX1 30 Days Qty: 60 0RF lisinopril 5 mg tablet 1 tab PO DAILY 0RF nicotine 21 mg/24 hr Patch 24 Hour 1 patch TRANSDERMAL DAILY PRN (Reason: Nicotine Cravings) 0RF Interventions: ED Discharge Assessment Last Done: 01/25/22 21:37
[2022-01-25 17:50] VITALS: BP 136/72; BP 148/104; PULSE 103; PULSE 87; RESP 18; TEMP 37.6; O2SAT 95; O2SAT 97; BMI 44.1
[2022-01-25 18:28] LABS: Amphetamine Screen Urine Not Detected (Not Detect); Barbiturates, Urine Not Detected (Not Detect); Benzodiazepines Screen Urine Not Detected (Not Detect); Cannabinoid Screen Urine Not Detected (Not Detect); Cocaine Screen Urine Not Detected (Not Detect); Fentanyl, urine Not Detected (Not Detect); Opiate Screen Urine Not Detected (Not Detect); Phencyclidine Screen Urine Not Detected (Not Detect)
[2022-01-25 18:36] LABS: COVID-19 Test Negative (Negative)
--- NOTE | 2022-01-25 19:28 | PC.NURSE ---
PT is requesting to go home at this time. PT stated that she was in her room thinking about how she didn't want to come to the hospital as much anymore when she has a wave of bad thoughts . PT stated that she wants to go home so she can hang out with her friends. CARE team notified and stated they would come talk to the PT about a plan to go home.
--- NOTE | 2022-01-25 21:42 | MHC.CARE ---
Pt met with the CARE team to advocate for d/c home. She reports she has waves of bad thoughts and tries her best to distract herself. She asked RN to wrap self harm cuts to deter her from cutting or getting depressed. She also told staff when she returns back she will give them her mirror that she cut with. Pt wrote down a number of different distractions and coping skills that she will return to. pt is not in any behavioral distress. She presents at her baseline and denies SI/HI. pt states that when she returns home she will watch a [employer] movie and go to bed. She also reports she has been saf because her staff Adina is leaving and wants to spend as much time as she can with her before she goes. Plan was discussed with Tacho and pt returns back to her [facility] via lyft.
== END 2022-01-25 21:42 | disposition home or self-care (01) ==
PROVIDERS: Nurse Practitioner Family; Emergency Provider Emergency Medicine
DX: F33.1 Major depressive disorder, recurrent, moderate (principal); R45.851 Suicidal ideations; Z20.822 Contact with and (suspected) exposure to COVID-19; Z79.899 Other long term (current) drug therapy; F17.210 Nicotine dependence, cigarettes, uncomplicated; Z71.6 Tobacco abuse counseling
CPT/HCPCS: 80307; 87635; 99284

== ENCOUNTER 2022-01-26 10:05 | Emergency (ER) | payer MEDICARE, MEDICAID, SELFPAY ==
[2022-01-26 10:18] VITALS: BP 100/66; BP 134/79; PULSE 102; PULSE 95; RESP 18; TEMP 36.8; O2SAT 97; O2SAT 99; BMI 39.2
--- NOTE | 2022-01-26 10:22 | ED_ITS ---
HPI - Psych General Chief Complaint: Psychiatric Symptoms Stated Complaint: SI,SEC 12 Time Seen by Provider: 01/26/22 10:20 Source: EMS Mode of arrival: EMS Limitations: no limitations History of Present Illness HPI Narrative: 46-year-old female past medical history borderline personality disorder, depression, anxiety, bipolar 2 with melancholic features, PTSD, DM, GERD presents to the ED with suicidal thoughts. Patient tells me she wrote a suicide note today. She tells me that she plans to overdose on [id number] medications that she plans on purchasing from a drug store. Patient denies any homicidal ideations. She does report hallucinations. No physical complaints. Related Data Home Medications Medication Instructions Recorded Confirmed atorvastatin 10 mg tablet 1 tab PO DAILY 05/29/21 01/23/22 fluticasone propionate 110 2 puff INHALATION BID 05/29/21 01/23/22 mcg/actuation HFA aerosol inhaler (Flovent HFA) metformin 500 mg tablet 1 tab PO BID 05/29/21 01/23/22 montelukast 10 mg tablet 1 tab PO BEDTIME 05/29/21 01/23/22 pantoprazole 40 mg tablet,delayed 1 tab PO BID@0630,1630 05/29/21 01/23/22 release verapamil 240 mg tablet,extended 1 tab PO BEDTIME 05/29/21 01/23/22 release albuterol sulfate 90 mcg/actuation 2 puff INHALATION Q4H PRN 06/15/21 01/23/22 aerosol inhaler (Ventolin HFA) trazodone 150 mg tablet 150 mg PO BEDTIME PRN 11/05/21 01/23/22 clonazepam 0.5 mg tablet 0.5 mg PO BID PRN 11/11/21 01/23/22 lisinopril 5 mg tablet 1 tab PO DAILY 11/14/21 01/23/22 nicotine 21 mg/24 hr daily 1 patch TRANSDERMAL DAILY PRN 11/14/21 01/23/22 transdermal patch benztropine 1 mg tablet 1 mg PO BID 12/26/21 01/23/22 chlorpromazine 25 mg tablet 75 mg PO BID PRN 12/26/21 01/23/22 naproxen 500 mg tablet 1 tab PO BID 01/23/22 01/23/22 Previous Rx's Medication Instructions Recorded hydroxyzine HCl 50 mg tablet 50 mg PO QID PRN 30 Days #120 tab 07/27/21 fluoxetine 20 mg capsule 40 mg PO DAILY 30 Days #60 cap 09/29/21 mirtazapine 7.5 mg tablet 7.5 mg PO BEDTIME MRX1 30 Days #60 10/18/21 tab prazosin 1 mg capsule 4 mg PO BEDTIME 30 Days #120 cap 10/18/21 Allergies Allergy/AdvReac Type Severity Reaction Status Date / Time Fish Containing Products Allergy Severe ANAPHYLAXIS Verified 01/26/22 10:18 codeine [Codeine] Allergy Unknown RASH Verified 01/26/22 10:18 Penicillins Allergy Unknown RASH Verified 01/26/22 10:18 prednisone [Prednisone] Allergy Unknown RASH Verified 01/26/22 10:18 Sulfa (Sulfonamide Allergy Unknown RASH Verified 01/26/22 10:18 Antibiotics) [Sulfa (Sulfonamides)] azithromycin [AZITHROMYCIN] AdvReac Severe RASH Verified 01/26/22 10:18 nicotine AdvReac Unknown HEART Verified 01/26/22 10:18 PALPITATION TO NICOTINE GUM Seafood Allergy Severe ANAPHYLAXIS Uncoded 11/05/21 21:13 From Geodon Allergy Unknown DYSURIA, Uncoded 11/05/21 21:13 RASH Review of Systems Review of Systems: Yes all other systems are reviewed and are negative Constitutional: Constitutional: Reports no additional constitutional complaints, Denies body ache(s), Denies chills, Denies fever(s), Denies headach e(s) and Denies weakness Eyes: Eyes: Reports no additional eye complaints and Denies change in vision ENT: Reports system reviewed and no additional complaints, except as documented, Denies dizziness, Denies headache(s), Denies nasal congestion, Denies nasal discharge and Denies neck pain Cardiovascular: Cardiovascular: Reports no additional cardiovascular complaints, Denies chest pain, Denies leg edema and Denies dyspnea Respiratory: Respiratory: Reports no additional respiratory complaints, Denies cough and Denies dyspnea Gastrointestinal: Gastrointestinal: Reports no additional gastrointestinal complaints, Denies abdominal pain, Denies diarrhea, Denies nausea and Denies vomiting Genitourinary: Genitourinary: Reports no additional female genitourinary complaints and Denies urinary incontinence Musculoskeletal: Musculoskeletal: Reports no additional musculoskeletal complaints, Denies back pain, Denies arthralgias, Denies joint swelling, Denies neck pain, Denies numbness and Denies tingling Integumentary/Breasts: Skin/Breast: Reports system reviewed and no additional complaints, except as docu and Denies rash Neurologic: Reports system reviewed and no additional complaints, except as documented, Denies Abnormal speech present, Denies dizziness, Denies headache(s), Denies numbness, Denies tingling and Denies weakness Psychiatric: Psychiatric: Reports depression, Reports hallucinations and Reports suicidal ideation PMFSH Past Medical History Attestation statement: The following information was validated with the patient. Source: old records reviewed and nursing notes reviewed Medical History Bronchitis Diabetes type 2, controlled GERD (gastroesophageal reflux disease) Hyperlipidemia MDD (major depressive disorder), recurrent episode, severe Mood disorder Overdose PTSD (post-traumatic stress disorder) Social History Social History 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: None 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 Other:: Patient lives in long-term. 4 in total live in long-term. Housing: Other Housing Other:: senior living Do you presently have visiting nurse or other home services: No (Medication administered by long-term staff) Unable to assess alcohol history related to: Unknown Alcohol intake: never Patient Tobacco Use Status: Current everyday Tobacco user Tobacco use type: Cigarette Cigarette Packs Per Day: 1 Cigarettes Per Day: 20 Years Smoked: 20 e-Cigarette/Vaping Use: Never Used Second Hand Smoke Exposure: Yes Substance Use Type: Caffiene Advance Directives: No service: No Sexual orientation: Don't Know Physical Exam Vital Signs: Vital Signs: Last Vital Signs Temp 98.3 F 01/26/22 10:18 Pulse 95 01/26/22 10:18 Resp 18 01/26/22 10:18 BP 134/79 01/26/22 10:18 Pulse Ox 97 01/26/22 10:18 BMI result Body Mass Index 39.2 Const: General: cooperative, healthy appearing, comfortable and no acute distress Orientation/consciousness: patient oriented x3 Limitations: no limitations HEENT: Head: Yes normal to inspection Ears: hearing grossly normal bilaterally General nose exam: Normal external nose present Face and sinus: Yes normal facial exam Mouth: Normal oral and palatal mucosa present Throat: Yes posterior oropharynx normal Eyes: General: appearance normal, both eyes and all related structures Pupils: Equal, round and reactive pupils present Neck: Neck: Yes normal visual inspection Chest: Chest palpation & inspection: normal inspection of the chest Resp: Effort & Inspection: normal respiratory effort Auscultation: clear to auscultation bilaterally Cardio: Rate: regular rate Rhythm: regular rhythm Peripheral pulses: Peripheral pulses 2+ throughout GI: Inspection: Yes normal to inspection Palpation (GI): Soft to palpation and nontender Auscultation: normal bowel sounds Back/Spine/Pelvis: Thoracic/Lumbar Spine: thoracic and lumbar spine normal to inspection Skin: General skin exam: no rashes or lesions noted Neuro: General: patient oriented x3, no focal motor deficits and normal sensation to monofilament Cranial nerves: Yes CN's II-XII intact bilaterally and Yes Equal, round and reactive pupils present Cognition (Neuro): normal cognition Speech: No Abnormal speech present Gait exam (Neuro): Normal gait present Motor exam (neuro): 5/5 motor strength present throughout Extrem: General: Yes normal to inspection Course Course Course Narrative: 46-year-old female here with reports of suicidal thoughts with plan to overdose. No physical complaints. No concern for acute ingestion or trauma. Will obtain care team consult Reevaluation(s) Reevaluation #1: Seen by care team. Safety plan made. Plan for discharge back to the long-term Time: 12:22 [facility] - Psych Medical Records Attestation: I reviewed the patient's medical records. Lab Data Attestation: I reviewed the patient's lab results. Labs: Lab Results 01/26/22 01/26/22 Range/Units 10:35 10:44 Urine Opiates Screen Not Detected (Not Detect) Urine Fentanyl Screen Not Detected (Not Detect) Ur Barbiturates Screen Not Detected (Not Detect) Ur Phencyclidine Scrn Not Detected (Not Detect) Ur Amphetamines Screen Not Detected (Not Detect) U Benzodiazepines Scrn Not Detected (Not Detect) Urine Cocaine Screen Not Detected (Not Detect) U Marijuana (THC) Screen Not Detected (Not Detect) COVID-19 (NICK) Negative (Negative) COVID-19 Clin Com See Note Discharge Plan Discharge Clinical Impression: Borderline personality disorder Patient Disposition: Home, Self-Care Instructions: Borderline Personality Disorder (DC) Prescriptions: No Action metformin 500 mg tablet 1 tab PO BID 0RF atorvastatin 10 mg tablet 1 tab PO DAILY 0RF pantoprazole 40 mg tablet,delayed release (DR/EC) 1 tab PO BID@0630,1630 0RF verapamil 240 mg tablet extended release 1 tab PO BEDTIME 0RF montelukast 10 mg tablet 1 tab PO BEDTIME 0RF Flovent HFA 110 mcg/actuation HFA aerosol inhaler 2 puff inhalation BID 0RF albuterol sulfate [Ventolin HFA] 90 mcg/actuation HFA aerosol inhaler 2 puff inhalation Q4H PRN (Reason: Shortness Of Breath) 0RF trazodone 150 mg tablet 150 mg PO BEDTIME PRN (Reason: insomnia) 0RF clonazepam 0.5 mg tablet 0.5 mg PO BID PRN (Reason: anxiety/AH) 0RF Rx Instructions: may take within 1 hour of each other; max dose 1mg daily benztropine 1 mg tablet 1 mg PO BID 0RF chlorpromazine 25 mg tablet 75 mg PO BID PRN (Reason: agitation) 0RF naproxen 500 mg tablet 1 tab PO BID 0RF hydroxyzine HCl 50 mg Tablet 50 mg PO QID PRN (Reason: Anxiety) 30 Days Qty: 120 0RF fluoxetine 20 mg Capsule 40 mg PO DAILY 30 Days Qty: 60 0RF prazosin 1 mg Capsule 4 mg PO BEDTIME 30 Days Qty: 120 0RF Protocol: Hold for SBP< HOLD for SBP < : 90 mirtazapine 7.5 mg Tablet 7.5 mg PO BEDTIME MRX1 30 Days Qty: 60 0RF lisinopril 5 mg tablet 1 tab PO DAILY 0RF nicotine 21 mg/24 hr Patch 24 Hour 1 patch TRANSDERMAL DAILY PRN (Reason: Nicotine Cravings) 0RF Interventions: ED Discharge Assessment Last Done: 01/26/22 12:51 Discharge Date/Time: 01/26/22 12:52
[2022-01-26 11:08] LABS: Amphetamine Screen Urine Not Detected (Not Detect); Barbiturates, Urine Not Detected (Not Detect); Benzodiazepines Screen Urine Not Detected (Not Detect); Cannabinoid Screen Urine Not Detected (Not Detect); Cocaine Screen Urine Not Detected (Not Detect); Fentanyl, urine Not Detected (Not Detect); Opiate Screen Urine Not Detected (Not Detect); Phencyclidine Screen Urine Not Detected (Not Detect)
[2022-01-26 11:35] LABS: COVID-19 Test Negative (Negative)
[2022-01-26] MEDS: Nicotine 21 MG PATCH.TD24 TRANSDERMA (11:53)
--- NOTE | 2022-01-26 15:27 | MHC.CARE ---
Late Entry: CARE Team meets with pt today at her request. Pt presents with baseline concerns of SI and AH. Pt has been coming to the ED daily and TW is working closely with pt. Pt states that she would like to leave and make a safety plan, siting that she had a wave of negative feelings leading her to call 911, but now she feels better. She identifies feeling sad about a preferred staff member leaving her [facility] and stressed about two new peers moving in. Pt has been warned that staff at [facility] will not be as available to support her as she is used to. CARE Team speaks with Toni Pittman from pt's [facility], who indicates that they do not have concerns beyond what is considered baseline for pt, and they are happy to have her return. Pt engages with TW in making a list of distractions for her to engage in, including taking a walk to look for montanez, taking the nail bengali off her nails, cleaning her room, making a gift for the staff member who is leaving. CARE Team will call pt for a check in this afternoon.
== END 2022-01-26 12:52 | disposition home or self-care (01) ==
PROVIDERS: Nurse Practitioner Family; Emergency Provider Emergency Medicine; PCP Nurse Practitioner Family
DX: F60.3 Borderline personality disorder (principal); R45.851 Suicidal ideations; Z20.822 Contact with and (suspected) exposure to COVID-19; F32.A Depression, unspecified; F41.9 Anxiety disorder, unspecified; F43.10 Post-traumatic stress disorder, unspecified; E11.9 Type 2 diabetes mellitus without complications; E78.5 Hyperlipidemia, unspecified; F17.200 Nicotine dependence, unspecified, uncomplicated; Z79.02 Long term (current) use of antithrombotics/antiplatelets; Z79.899 Other long term (current) drug therapy
CPT/HCPCS: 80307; 87635; 99283; 99284

== ENCOUNTER 2022-01-27 09:39 | Emergency (ER) | payer MEDICARE, MEDICAID, SELFPAY ==
[2022-01-27 09:42] VITALS: BP 122/72; BP 152/90; PULSE 83; PULSE 85; RESP 18; TEMP 37.3; O2SAT 96; O2SAT 97; BMI 44.7
--- NOTE | 2022-01-27 09:47 | ED_ITS ---
HPI - Psych General Chief Complaint: Psychiatric Symptoms Stated Complaint: crisis Time Seen by Provider: 01/27/22 09:47 Source: patient and EMS Mode of arrival: EMS Limitations: no limitations History of Present Illness HPI Narrative: 46-year-old female past medical history borderline personality disorder, depression, anxiety, bipolar 2 with melancholic features, PTSD, DM, GERD? here with suicidal thoughts, plan to overdose on medications that she is going to buy a drug store or cut herself with the wrist with a broken soda can and feeling flashbacks. + hallucinations. no physical complaint Related Data Home Medications Medication Instructions Recorded Confirmed atorvastatin 10 mg tablet 1 tab PO DAILY 05/29/21 01/23/22 fluticasone propionate 110 2 puff INHALATION BID 05/29/21 01/23/22 mcg/actuation HFA aerosol inhaler (Flovent HFA) metformin 500 mg tablet 1 tab PO BID 05/29/21 01/23/22 montelukast 10 mg tablet 1 tab PO BEDTIME 05/29/21 01/23/22 pantoprazole 40 mg tablet,delayed 1 tab PO BID@0630,1630 05/29/21 01/23/22 release verapamil 240 mg tablet,extended 1 tab PO BEDTIME 05/29/21 01/23/22 release albuterol sulfate 90 mcg/actuation 2 puff INHALATION Q4H PRN 06/15/21 01/23/22 aerosol inhaler (Ventolin HFA) trazodone 150 mg tablet 150 mg PO BEDTIME PRN 11/05/21 01/23/22 clonazepam 0.5 mg tablet 0.5 mg PO BID PRN 11/11/21 01/23/22 lisinopril 5 mg tablet 1 tab PO DAILY 11/14/21 01/23/22 nicotine 21 mg/24 hr daily 1 patch TRANSDERMAL DAILY PRN 11/14/21 01/23/22 transdermal patch benztropine 1 mg tablet 1 mg PO BID 12/26/21 01/23/22 chlorpromazine 25 mg tablet 75 mg PO BID PRN 12/26/21 01/23/22 naproxen 500 mg tablet 1 tab PO BID 01/23/22 01/23/22 Previous Rx's Medication Instructions Recorded hydroxyzine HCl 50 mg tablet 50 mg PO QID PRN 30 Days #120 tab 07/27/21 fluoxetine 20 mg capsule 40 mg PO DAILY 30 Days #60 cap 09/29/21 mirtazapine 7.5 mg tablet 7.5 mg PO BEDTIME MRX1 30 Days #60 10/18/21 tab prazosin 1 mg capsule 4 mg PO BEDTIME 30 Days #120 cap 10/18/21 Allergies Allergy/AdvReac Type Severity Reaction Status Date / Time Fish Containing Products Allergy Severe ANAPHYLAXIS Verified 01/26/22 10:18 codeine [Codeine] Allergy Unknown RASH Verified 01/26/22 10:18 Penicillins Allergy Unknown RASH Verified 01/26/22 10:18 prednisone [Prednisone] Allergy Unknown RASH Verified 01/26/22 10:18 Sulfa (Sulfonamide Allergy Unknown RASH Verified 01/26/22 10:18 Antibiotics) [Sulfa (Sulfonamides)] azithromycin [AZITHROMYCIN] AdvReac Severe RASH Verified 01/26/22 10:18 nicotine AdvReac Unknown HEART Verified 01/26/22 10:18 PALPITATION TO NICOTINE GUM Seafood Allergy Severe ANAPHYLAXIS Uncoded 11/05/21 21:13 From Geodon Allergy Unknown DYSURIA, Uncoded 11/05/21 21:13 RASH Review of Systems Review of Systems: Yes all other systems are reviewed and are negative Constitutional: Constitutional: Reports no additional constitutional complaints, Denies body ache(s), Denies chills, Denies fever(s), Denies headache(s) and Denies weakness Eyes: Eyes: Reports no additional eye complaints and Denies change in vision ENT: Reports system reviewed and no additional complaints, except as documented, Denies dizziness, Denies headache(s), Denies nasal congestion, Denies nasal discharge and Denies neck pain Cardiovascular: Cardiovascular: Reports no additional cardiovascular complaints, Denies chest pain, Denies leg edema and Denies dyspnea Respiratory: Respiratory: Reports no additional respiratory complaints, Denies cough and Denies dyspnea Gastrointestinal: Gastrointestinal: Reports no additional gastrointestinal complaints, Denies abdominal pain, Denies diarrhea, Denies nausea and Denies vomiting Genitourinary: Genitourinary: Reports no additional female genitourinary complaints and Denies urinary incontinence Musculoskeletal: Musculoskeletal: Reports no additional musculoskeletal complaints, Denies back pain, Denies arthralgias, Denies joint swelling, Denies neck pain, Denies numbness and Denies tingling Integumentary/Breasts: Skin/Breast: Reports system reviewed and no additional complaints, except as docu and Denies rash Neurologic: Reports system reviewed and no additional complaints, except as documented, Denies Abnormal speech present, Denies dizziness, Denies headache(s), Denies numbness, Denies tingling and Denies weakness Psychiatric: Psychiatric: Reports visual hallucinations, Reports hallucinations and Reports suicidal ideation PMF Past Medical History Attestation statement: The following information was validated with the patient. Source: old records reviewed and nursing notes reviewed Medical History Bronchitis Diabetes type 2, controlled GERD (gastroesophageal reflux disease) Hyperlipidemia MDD (major depressive disorder), recurrent episode, severe Mood disorder Overdose PTSD (post-traumatic stress disorder) Social History Social History 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: None 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 Other:: Patient lives in detention. 4 in total live in detention. Housing: Other Housing Other:: snf Do you presently have visiting nurse or other home services: No (Medication administered by detention staff) Unable to assess alcohol history related to: Unknown Alcohol intake: never Patient Tobacco Use Status: Current everyday Tobacco user Tobacco use type: Cigarette Cigarette Packs Per Day: 1 Cigarettes Per Day: 20 Years Smoked: 20 e-Cigarette/Vaping Use: Never Used Second Hand Smoke Exposure: Yes Substance Use Type: Caffiene Advance Directives: No Patient : No service: No Sexual orientation: Don't Know Physical Exam Vital Signs: Vital Signs: Last Vital Signs Temp 99.1 F 01/27/22 09:42 Pulse 85 01/27/22 09:42 Resp 18 01/27/22 09:42 BP 122/72 01/27/22 09:42 Pulse Ox 97 01/27/22 09:42 BMI result Body Mass Index 44.7 Const: General: cooperative, healthy appearing, comfortable and no acute distress Orientation/consciousness: patient oriented x3 Limitations: no limitations HEENT: Head: Yes normal to inspection Ears: hearing grossly normal bilaterally General nose exam: Normal external nose present Face and sinus: Yes normal facial exam Mouth: Normal oral and palatal mucosa present Throat: Yes posterior oropharynx normal Eyes: General: appearance normal, both eyes and all related structures Pupils: Equal, round and reactive pupils present Neck: Neck: Yes normal visual inspection Chest: Chest palpation & inspection: normal inspection of the chest Resp: Effort & Inspection: normal respiratory effort Auscultation: clear to auscultation bilaterally Cardio: Rate: regular rate Rhythm: regular rhythm Peripheral pulses: Peripheral pulses 2+ throughout GI: Inspection: Yes normal to inspection Palpation (GI): Soft to palpation and nontender Auscultation: normal bowel sounds Back/Spine/Pelvis: Thoracic/Lumbar Spine: thoracic and lumbar spine normal to inspection Skin: General skin exam: no rashes or lesions noted Neuro: General: patient oriented x3, no focal motor deficits and normal sensation to monofilament Cranial nerves: Yes CN's II-XII intact bilaterally and Yes Equal, round and reactive pupils present Cognition (Neuro): normal cognition Speech: No Abnormal speech present Gait exam (Neuro): Normal gait present Motor exam (neuro): 5/5 motor strength present throughout Extrem: General: Yes normal to inspection Course Course Course Narrative: 46-year-old female here with reports of suicidal thoughts, flashbacks, hallucinations. Will obtain care team consult Reevaluation(s) Reevaluation #1: patient to my care team. Plan for discharge back to detention. Time: 11:11 [facility] - Psych Medical Records Attestation: I reviewed the patient's medical records. Lab Data Attestation: I reviewed the patient's lab results. Discharge Plan Discharge Clinical Impression: Borderline personality disorder Patient Disposition: Home, Self-Care Instructions: Borderline Personality Disorder (DC) Additional Instructions: follow-up with your outpatient providers go to your detention Prescriptions: No Action metformin 500 mg tablet 1 tab PO BID 0RF atorvastatin 10 mg tablet 1 tab PO DAILY 0RF pantoprazole 40 mg tablet,delayed release (DR/EC) 1 tab PO BID@0630,1630 0RF verapamil 240 mg tablet extended release 1 tab PO BEDTIME 0RF montelukast 10 mg tablet 1 tab PO BEDTIME 0RF Flovent HFA 110 mcg/actuation HFA aerosol inhaler 2 puff inhalation BID 0RF albuterol sulfate [Ventolin HFA] 90 mcg/actuation HFA aerosol inhaler 2 puff inhalation Q4H PRN (Reason: Shortness Of Breath) 0RF trazodone 150 mg tablet 150 mg PO BEDTIME PRN (Reason: insomnia) 0RF clonazepam 0.5 mg tablet 0.5 mg PO BID PRN (Reason: anxiety/AH) 0RF Rx Instructions: may take within 1 hour of each other; max dose 1mg daily benztropine 1 mg tablet 1 mg PO BID 0RF chlorpromazine 25 mg tablet 75 mg PO BID PRN (Reason: agitation) 0RF naproxen 500 mg tablet 1 tab PO BID 0RF hydroxyzine HCl 50 mg Tablet 50 mg PO QID PRN (Reason: Anxiety) 30 Days Qty: 120 0RF fluoxetine 20 mg Capsule 40 mg PO DAILY 30 Days Qty: 60 0RF prazosin 1 mg Capsule 4 mg PO BEDTIME 30 Days Qty: 120 0RF Protocol: Hold for SBP< HOLD for SBP < : 90 mirtazapine 7.5 mg Tablet 7.5 mg PO BEDTIME MRX1 30 Days Qty: 60 0RF lisinopril 5 mg tablet 1 tab PO DAILY 0RF nicotine 21 mg/24 hr Patch 24 Hour 1 patch TRANSDERMAL DAILY PRN (Reason: Nicotine Cravings) 0RF Interventions: ED Discharge Assessment Last Done: 01/27/22 11:29 Discharge Date/Time: 01/27/22 11:30
== END 2022-01-27 11:30 | disposition home or self-care (01) ==
PROVIDERS: Emergency Provider Emergency Medicine; PCP Nurse Practitioner Family
DX: F33.1 Major depressive disorder, recurrent, moderate (principal); F41.1 Generalized anxiety disorder; F43.0 Acute stress reaction; R45.851 Suicidal ideations; F17.210 Nicotine dependence, cigarettes, uncomplicated; Z71.6 Tobacco abuse counseling; Z79.899 Other long term (current) drug therapy
CPT/HCPCS: 99283

== ENCOUNTER 2022-01-27 15:20 | Emergency (ER) | payer MEDICARE, MEDICAID, SELFPAY ==
--- NOTE | 2022-01-27 15:24 | ED.PSYCH ---
HPI - Psych General Chief Complaint: Psychiatric Symptoms Stated Complaint: crisis Time Seen by Provider: 01/27/22 15:24 Source: patient Mode of arrival: EMS Limitations: no limitations History of Present Illness HPI Narrative: in 9 days the patient has presented to [facility] and [facility] for 10 crisis visits MD complaint: suicidal ideation, feels depressed and hallucinations Onset (ago): month(s) Duration: getting worse History of same: Yes Relieving factors: none Exacerbating factors: none Associated psychiatric symptoms: depression, suicidal ideation and auditory hallucinations Associated symptoms: denies other symptoms Treatments prior to arrival: none If self harm: admits thoughts of self harm Related Data Home Medications Medication Instructions Recorded Confirmed atorvastatin 10 mg tablet 1 tab PO DAILY 05/29/21 01/23/22 fluticasone propionate 110 2 puff INHALATION BID 05/29/21 01/23/22 mcg/actuation HFA aerosol inhaler (Flovent HFA) metformin 500 mg tablet 1 tab PO BID 05/29/21 01/23/22 montelukast 10 mg tablet 1 tab PO BEDTIME 05/29/21 01/23/22 pantoprazole 40 mg tablet,delayed 1 tab PO BID@0630,1630 05/29/21 01/23/22 release verapamil 240 mg tablet,extended 1 tab PO BEDTIME 05/29/21 01/23/22 release albuterol sulfate 90 mcg/actuation 2 puff INHALATION Q4H PRN 06/15/21 01/23/22 aerosol inhaler (Ventolin HFA) trazodone 150 mg tablet 150 mg PO BEDTIME PRN 11/05/21 01/23/22 clonazepam 0.5 mg tablet 0.5 mg PO BID PRN 11/11/21 01/23/22 lisinopril 5 mg tablet 1 tab PO DAILY 11/14/21 01/23/22 nicotine 21 mg/24 hr daily 1 patch TRANSDERMAL DAILY PRN 11/14/21 01/23/22 transdermal patch benztropine 1 mg tablet 1 mg PO BID 12/26/21 01/23/22 chlorpromazine 25 mg tablet 75 mg PO BID PRN 12/26/21 01/23/22 naproxen 500 mg tablet 1 tab PO BID 01/23/22 01/23/22 Previous Rx's Medication Instructions Recorded hydroxyzine HCl 50 mg tablet 50 mg PO QID PRN 30 Days #120 tab 07/27/21 fluoxetine 20 mg capsule 40 mg PO DAILY 30 Days #60 cap 09/29/21 mirtazapine 7.5 mg tablet 7.5 mg PO BEDTIME MRX1 30 Days #60 10/18/21 tab prazosin 1 mg capsule 4 mg PO BEDTIME 30 Days #120 cap 10/18/21 Allergies Allergy/AdvReac Type Severity Reaction Status Date / Time Fish Containing Products Allergy Severe ANAPHYLAXIS Verified 01/26/22 10:18 codeine [Codeine] Allergy Unknown RASH Verified 01/26/22 10:18 Penicillins Allergy Unknown RASH Verified 01/26/22 10:18 prednisone [Prednisone] Allergy Unknown RASH Verified 01/26/22 10:18 Sulfa (Sulfonamide Allergy Unknown RASH Verified 01/26/22 10:18 Antibiotics) [Sulfa (Sulfonamides)] azithromycin [AZITHROMYCIN] AdvReac Severe RASH Verified 01/26/22 10:18 nicotine AdvReac Unknown HEART Verified 01/26/22 10:18 PALPITATION TO NICOTINE GUM Seafood Allergy Severe ANAPHYLAXIS Uncoded 11/05/21 21:13 From Geodon Allergy Unknown DYSURIA, Uncoded 11/05/21 21:13 RASH Review of Systems Review of Systems: Constitutional : No Fever, No Chills ENT/Mouth : No Ear Pain, No Nasal Congestion, No sore throat Eyes: No Eye Pain, No Swelling, No Redness Cardiovascular : No Chest Pain, No SOB Respiratory : No Cough, No Sputum, No Dyspnea Gastrointestinal : No Nausea, No Vomiting, No Diarrhea, No Hematochezia, No Melena Genitourinary : No Dysuria, No Urinary Frequency, No Hematuria Musculoskeletal : No Myalgias Skin : No Skin Lesions, No rash Neuro : No Weakness, No Numbness, No Paresthesias, No Dizziness, No Headache Psych : positive Anxiety, positive Depression, positive SI no HI, pos AH, no VH Heme/Lymph: No Lymphadenopathy Endocrine : No Polyuria, No Polydipsia All other systems reviewed and are negative PMFSH Past Medical History Attestation statement: The following information was validated with the patient. Medical History Bronchitis Diabetes type 2, controlled GERD (gastroesophageal reflux disease) Hyperlipidemia MDD (major depressive disorder), recurrent episode, severe Mood disorder Overdose PTSD (post-traumatic stress disorder) Social History Social History 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: None 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 Other:: Patient lives in skilled nursing. 4 in total live in skilled nursing. Housing: Other Housing Other:: [facility] Do you presently have visiting nurse or other home services: No (Medication administered by skilled nursing staff) Unable to assess alcohol history related to: Unknown Alcohol intake: never Patient Tobacco Use Status: Current everyday Tobacco user Tobacco use type: Cigarette Cigarette Packs Per Day: 1 Cigarettes Per Day: 20 Years Smoked: 20 e-Cigarette/Vaping Use: Never Used Second Hand Smoke Exposure: Yes Substance Use Type: Caffiene Advance Directives: No Advance Directives Information Provided: No Patient : No service: No Sexual orientation: Don't Know Physical Exam Vital Signs: Vital Signs: Last Vital Signs Temp 97.6 F 01/27/22 15:48 Pulse 80 01/27/22 15:48 Resp 16 01/27/22 15:48 BP 126/71 01/27/22 15:48 Pulse Ox 97 01/27/22 15:48 BMI result Body Mass Index 40.2 Appearance: Alert. Oriented X3. No acute distress. Eyes: Pupils equal, round and reactive to light. ENT: Pharynx normal. Neck: Normal inspection. Neck supple. CVS: Normal heart rate and rhythm. Pulses normal. Respiratory: No respiratory distress. Breath sounds normal. Abdomen: Soft and nontender. Skin: Skin warm and dry. Normal skin color. Normal skin turgor. Extremities: No lower extremity edema. No calf ttp Neuro: Oriented X 3. No motor deficit. No sensory deficit. CN 2-12 intact Course Course Course Narrative: signed out to Rach CAPELLAN pending CARE team input MDM - Psych MDM Narrative Medical decision making narrative: 46 yo female with hx of mental illness - has had numerous visits to [facility] and [facility] this month for crisis visits. She notes SI and AH. This has been a chronic complaint for her recently. At this time will obtain CARE team consult Discharge Plan Discharge Clinical Impression: Depression Patient Disposition: Still a Patient Prescriptions: No Action metformin 500 mg tablet 1 tab PO BID 0RF atorvastatin 10 mg tablet 1 tab PO DAILY 0RF pantoprazole 40 mg tablet,delayed release (DR/EC) 1 tab PO BID@0630,1630 0RF verapamil 240 mg tablet extended release 1 tab PO BEDTIME 0RF montelukast 10 mg tablet 1 tab PO BEDTIME 0RF Flovent HFA 110 mcg/actuation HFA aerosol inhaler 2 puff inhalation BID 0RF albuterol sulfate [Ventolin HFA] 90 mcg/actuation HFA aerosol inhaler 2 puff inhalation Q4H PRN (Reason: Shortness Of Breath) 0RF trazodone 150 mg tablet 150 mg PO BEDTIME PRN (Reason: insomnia) 0RF clonazepam 0.5 mg tablet 0.5 mg PO BID PRN (Reason: anxiety/AH) 0RF Rx Instructions: may take within 1 hour of each other; max dose 1mg daily benztropine 1 mg tablet 1 mg PO BID 0RF chlorpromazine 25 mg tablet 75 mg PO BID PRN (Reason: agitation) 0RF naproxen 500 mg tablet 1 tab PO BID 0RF hydroxyzine HCl 50 mg Tablet 50 mg PO QID PRN (Reason: Anxiety) 30 Days Qty: 120 0RF fluoxetine 20 mg Capsule 40 mg PO DAILY 30 Days Qty: 60 0RF prazosin 1 mg Capsule 4 mg PO BEDTIME 30 Days Qty: 120 0RF Protocol: Hold for SBP< HOLD for SBP < : 90 mirtazapine 7.5 mg Tablet 7.5 mg PO BEDTIME MRX1 30 Days Qty: 60 0RF lisinopril 5 mg tablet 1 tab PO DAILY 0RF nicotine 21 mg/24 hr Patch 24 Hour 1 patch TRANSDERMAL DAILY PRN (Reason: Nicotine Cravings) 0RF
[2022-01-27 15:48] VITALS: BP 126/71; PULSE 80; RESP 16; TEMP 36.4; O2SAT 97; BMI 40.2
[2022-01-27] MEDS: LORazepam 1 MG TABLET PO (16:06)
--- NOTE | 2022-01-27 17:50 | MHC.CARE ---
CARE Team met with pt and discussed the events that led up to pt presenting to the ED. Pt reports that she feels like she gets into these life or moments that scare her so she calls for EMS. Pt reports that once the moments pass, she feels better and wants to return home. CARE Team collaborated with pt to come up with ideas for what to do in those moments instead of calling 911 and pt reports that she is going to try to use those techniques until the moment passes and she feels better. Pt denies having any money for a ride home. CARE Team reminded her that she only gets one Lyft ride a day and offered pt bus passes to get home. Pt accepted bus passes. Pt denies SI/thoughts of self-harm and reports that she can keep herself safe at home. CARE Team will call pt later tonight to check in.
== END 2022-01-27 17:52 | disposition home or self-care (01) ==
PROVIDERS: Emergency Provider Emergency Medicine; PCP Nurse Practitioner Family
DX: F33.1 Major depressive disorder, recurrent, moderate (principal); R45.851 Suicidal ideations; Z79.899 Other long term (current) drug therapy; F17.210 Nicotine dependence, cigarettes, uncomplicated; Z71.6 Tobacco abuse counseling
CPT/HCPCS: 99283; 99284

== ENCOUNTER 2022-01-29 08:05 | Emergency (ER) | payer MEDICARE, MEDICAID, SELFPAY ==
[2022-01-29 08:10] VITALS: BP 142/94; BP 166/74; PULSE 101; PULSE 79; RESP 18; TEMP 36.1; O2SAT 97; O2SAT 99; BMI 39.2
--- NOTE | 2022-01-29 08:14 | ED.PSYCH ---
HPI - Psych General Chief Complaint: Psychiatric Symptoms Stated Complaint: crisis Time Seen by Provider: 01/29/22 08:13 Source: patient, EMS and old records reviewed Mode of arrival: EMS Limitations: no limitations History of Present Illness HPI Narrative: 46 y/o female with history of borderline personality, PTSD, bipolar disorder who presents to the ED via EMS from her custodial for the 7th time in the last week with reports of auditory hallucinations, self harm with cutting, and SI. She reports she used a ceramic mild that she broke to cut herself on her left forearm and her abdomen. She states she is more depressed lately and has a poor appetite with an upset stomach. She reports some nausea this morning. She denies any vomiting or diarrhea. Patient was just seen at [facility] yesterday for SI and self inflicted superficial wounds. MD complaint: suicidal ideation and feels depressed Onset (ago): unknown Duration: intermittent History of same: Yes Relieving factors: none Exacerbating factors: none Associated psychiatric symptoms: depression, suicidal ideation and auditory hallucinations Associated symptoms: nausea Treatments prior to arrival: none If self harm: admits thoughts of self harm, has plan and self-inflicted trauma Details of plan: Cut herself or light herself on fire Related Data Home Medications Medication Instructions Recorded Confirmed atorvastatin 10 mg tablet 1 tab PO DAILY 05/29/21 01/23/22 fluticasone propionate 110 2 puff INHALATION BID 05/29/21 01/23/22 mcg/actuation HFA aerosol inhaler (Flovent HFA) metformin 500 mg tablet 1 tab PO BID 05/29/21 01/23/22 montelukast 10 mg tablet 1 tab PO BEDTIME 05/29/21 01/23/22 pantoprazole 40 mg tablet,delayed 1 tab PO BID@0630,1630 05/29/21 01/23/22 release verapamil 240 mg tablet,extended 1 tab PO BEDTIME 05/29/21 01/23/22 release albuterol sulfate 90 mcg/actuation 2 puff INHALATION Q4H PRN 06/15/21 01/23/22 aerosol inhaler (Ventolin HFA) trazodone 150 mg tablet 150 mg PO BEDTIME PRN 11/05/21 01/23/22 clonazepam 0.5 mg tablet 0.5 mg PO BID PRN 11/11/21 01/23/22 lisinopril 5 mg tablet 1 tab PO DAILY 11/14/21 01/23/22 nicotine 21 mg/24 hr daily 1 patch TRANSDERMAL DAILY PRN 11/14/21 01/23/22 transdermal patch benztropine 1 mg tablet 1 mg PO BID 12/26/21 01/23/22 chlorpromazine 25 mg tablet 75 mg PO BID PRN 12/26/21 01/23/22 naproxen 500 mg tablet 1 tab PO BID 01/23/22 01/23/22 Previous Rx's Medication Instructions Recorded hydroxyzine HCl 50 mg tablet 50 mg PO QID PRN 30 Days #120 tab 07/27/21 fluoxetine 20 mg capsule 40 mg PO DAILY 30 Days #60 cap 09/29/21 mirtazapine 7.5 mg tablet 7.5 mg PO BEDTIME MRX1 30 Days #60 10/18/21 tab prazosin 1 mg capsule 4 mg PO BEDTIME 30 Days #120 cap 10/18/21 Allergies Allergy/AdvReac Type Severity Reaction Status Date / Time Fish Containing Products Allergy Severe ANAPHYLAXIS Verified 01/26/22 10:18 codeine [Codeine] Allergy Unknown RASH Verified 01/26/22 10:18 Penicillins Allergy Unknown RASH Verified 01/26/22 10:18 prednisone [Prednisone] Allergy Unknown RASH Verified 01/26/22 10:18 Sulfa (Sulfonamide Allergy Unknown RASH Verified 01/26/22 10:18 Antibiotics) [Sulfa (Sulfonamides)] azithromycin [AZITHROMYCIN] AdvReac Severe RASH Verified 01/26/22 10:18 nicotine AdvReac Unknown HEART Verified 01/26/22 10:18 PALPITATION TO NICOTINE GUM Seafood Allergy Severe ANAPHYLAXIS Uncoded 11/05/21 21:13 From Geodon Allergy Unknown DYSURIA, Uncoded 11/05/21 21:13 RASH Review of Systems Review of Systems: Constitutional: No Fever, No Chills ENT/Mouth: No sore throat, No Rhinorrhea, No Swallowing Difficulty Eyes: No Eye Pain, No Swelling, No Redness Cardiovascular: No Chest Pain, No SOB, No Orthopnea, No Edema Respiratory: No Cough, No Sputum, No Wheezing, No dyspnea Gastrointestinal: + Nausea, No Vomiting, No Diarrhea, No abdominal Pain, No Hematochezia, No Melena Genitourinary: No Dysuria, No Urinary Frequency, No Hematuria Musculoskeletal: No joint pain, No Myalgias Skin: + Skin Lesions, No rash Neuro: No Weakness, No Numbness, No Dizziness, No Headache Psych: + Anxiety/Panic, + Depression, +SI, No HI, +AH, No VH Heme/Lymph: No Bruising, No Lymphadenopathy Endocrine: No Polyuria, No Polydipsia [facility] Past Medical History Medical History Bronchitis Diabetes type 2, controlled GERD (gastroesophageal reflux disease) Hyperlipidemia MDD (major depressive disorder), recurrent episode, severe Mood disorder Overdose PTSD (post-traumatic stress disorder) Social History Social History 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: None 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 Other:: Patient lives in custodial. 4 in total live in custodial. Housing: Other Housing Other:: [facility] Do you presently have visiting nurse or other home services: No (Medication administered by custodial staff) Unable to assess alcohol history related to: Unknown Alcohol intake: never Patient Tobacco Use Status: Current everyday Tobacco user Tobacco use type: Cigarette Cigarette Packs Per Day: 1 Cigarettes Per Day: 20 Years Smoked: 20 e-Cigarette/Vaping Use: Never Used Second Hand Smoke Exposure: Yes Substance Use Type: Caffiene Advance Directives: Yes Advance Directives Information Provided: Yes Advance Directives on File: No Patient : No service: No Sexual orientation: Don't Know Physical Exam Vital Signs: Vital Signs: Last Vital Signs Temp 96.9 F 01/29/22 08:10 Pulse 79 01/29/22 08:10 Resp 18 01/29/22 08:10 BP 166/74 H 01/29/22 08:10 Pulse Ox 97 01/29/22 08:10 BMI result Body Mass Index 39.2 Appearance: Alert. Oriented X3. No acute distress. Eyes: Pupils equal, round and reactive to light. ENT: Pharynx normal. Neck: Normal inspection. Neck supple. CVS: Normal heart rate and rhythm. Pulses normal. Respiratory: No respiratory distress. Breath sounds normal. Abdomen: Multiple superficial linear lacerations along the entire abdominal wall, no active bleeding or signs of infection, no deep wounds. Soft and nontender. +BS x4 Skin: Skin warm and dry. Normal skin color. Normal skin turgor. No rashes. Extremities: No lower extremity edema. bilateral upper extremities with superficial linear lacerations, left more than right with scabbing appears to be old. No deep wounds. No bleeding or signs of infection. Neuro: Oriented X 3. No motor deficit. No sensory deficit. Flat affect, depressed. Reports auditory hallucinations. Cranial nerves 2-12 are intact Course Course Course Narrative: 46-year-old female well known to this emergency department presents back to the ER for the 7th time in 1 week with self-harm, auditory hallucinations and worsening depression. She reports hearing voices to tell her to harm herself. She has history of the same and has several presentations to this emergency room and surrounding emergency rooms with the same presentation. Inpatient hospitalization does not seem to help her or offer any benefit. Old notes and records reviewed. This is patient's 92nd visit to the emergency room in the last 12 months. Will have care team assess her. Reevaluation(s) Reevaluation #1: Patient given dose of sublingual Zofran she is eating toast. No vomiting. She appears at baseline. Physician observation started at 10:32am. Patient placed in physician observation because patient is awaiting CARE team evaluation for the possible need of inpatient psych admission. At the time observation was started patient's vital signs were stable. Patient is alert and oriented. Neuro exam is non-focal. CV: RRR and lungs are clear. Will continue to monitor. Reevaluation #2: Patient seen by CARE team - stable for discharge home with outpatient follow up. [facility] - Psych Lab Data Labs: Lab Results 01/29/22 01/29/22 Range/Units 08:21 08:21 Urine Color YELLOW Urine Appearance HAZY Urine pH 6.5 (5.0-8.0) Ur Specific [place] <= 1.005 (1.005-1.025) Urine Protein NEG (NEG-TRACE) MG/DL Urine Glucose (UA) NEG (NEG) MG/DL Urine Ketones NEG (NEG) MG/DL Urine Blood TRACE (NEG) Urine Nitrite NEG (NEG) Ur Leukocyte Esterase TRACE H (NEG) Urine RBC 0-2 (0) /HPF Urine WBC 1-4 (0-4) /HPF Ur Squamous Epith Cells TRACE /LPF Urine Bacteria 1+ /LPF Urine Opiates Screen Not Detected (Not Detect) Urine Fentanyl Screen Not Detected (Not Detect) Ur Barbiturates Screen Not Detected (Not Detect) Ur Phencyclidine Scrn Not Detected (Not Detect) Ur Amphetamines Screen Not Detected (Not Detect) U Benzodiazepines Scrn Not Detected (Not Detect) Urine Cocaine Screen Not Detected (Not Detect) U Marijuana (THC) Screen Not Detected (Not Detect) Critical Care Time Critical Care Time Critical Care Time: No Discharge Plan Discharge Clinical Impression: Depression Patient Disposition: Home, Self-Care Instructions: Depression (DC) Additional Instructions: Follow up with your doctor and therapist Take all of your medications as prescribed Prescriptions: No Action metformin 500 mg tablet 1 tab PO BID 0RF atorvastatin 10 mg tablet 1 tab PO DAILY 0RF pantoprazole 40 mg tablet,delayed release (DR/EC) 1 tab PO BID@0630,1630 0RF verapamil 240 mg tablet extended release 1 tab PO BEDTIME 0RF montelukast 10 mg tablet 1 tab PO BEDTIME 0RF Flovent HFA 110 mcg/actuation HFA aerosol inhaler 2 puff inhalation BID 0RF albuterol sulfate [Ventolin HFA] 90 mcg/actuation HFA aerosol inhaler 2 puff inhalation Q4H PRN (Reason: Shortness Of Breath) 0RF trazodone 150 mg tablet 150 mg PO BEDTIME PRN (Reason: insomnia) 0RF clonazepam 0.5 mg tablet 0.5 mg PO BID PRN (Reason: anxiety/AH) 0RF Rx Instructions: may take within 1 hour of each other; max dose 1mg daily benztropine 1 mg tablet 1 mg PO BID 0RF chlorpromazine 25 mg tablet 75 mg PO BID PRN (Reason: agitation) 0RF naproxen 500 mg tablet 1 tab PO BID 0RF hydroxyzine HCl 50 mg Tablet 50 mg PO QID PRN (Reason: Anxiety) 30 Days Qty: 120 0RF fluoxetine 20 mg Capsule 40 mg PO DAILY 30 Days Qty: 60 0RF prazosin 1 mg Capsule 4 mg PO BEDTIME 30 Days Qty: 120 0RF Protocol: Hold for SBP< HOLD for SBP < : 90 mirtazapine 7.5 mg Tablet 7.5 mg PO BEDTIME MRX1 30 Days Qty: 60 0RF lisinopril 5 mg tablet 1 tab PO DAILY 0RF nicotine 21 mg/24 hr Patch 24 Hour 1 patch TRANSDERMAL DAILY PRN (Reason: Nicotine Cravings) 0RF
[2022-01-29 08:33] LABS: Appearance Urine HAZY; Color Urine YELLOW; Glucose Urine UA NEG (NEG); Leukocyte Esterase Urine TRACE (NEG); Nitrite Urine NEG (NEG); PH 6.5 (5.0-8.0); Specific Gravity - Urine <= 1.005 (1.005-1.025); UACC Culture Trigger YES; Urine Blood TRACE (NEG); Urine Ketones NEG (NEG); Urine Protein NEG (NEG-TRACE)
[2022-01-29 08:40] LABS: Amphetamine Screen Urine Not Detected (Not Detect); Barbiturates, Urine Not Detected (Not Detect); Benzodiazepines Screen Urine Not Detected (Not Detect); Cannabinoid Screen Urine Not Detected (Not Detect); Cocaine Screen Urine Not Detected (Not Detect); Fentanyl, urine Not Detected (Not Detect); Opiate Screen Urine Not Detected (Not Detect); Phencyclidine Screen Urine Not Detected (Not Detect)
[2022-01-29 08:43] LABS: Bacteria Urine 1+ /LPF; RBC Urine 0-2 /HPF (0); Squamous Epithelial Cell Urine TRACE /LPF; UACC CULT YES
--- NOTE | 2022-01-29 11:56 | MHC.CARE ---
Pt is a 45 y/o single, , [place]ian speaking, female, who is previously known to the CARE Team through prior assessments, ED visits and in patient stays.? Today, she was transported to this facility reporting hearing voices and cutting herself. Pt has been medically cleared and is being screened for risk by the CARE Team to determine appropriate treatment recommendations. Pt has an extensive hx of inpt hospitalizations. Past documented hx of Major depressive d/o,?PTSD, and Borderline personality d/o. Pt has a hx of self-harm and suicide attempts. Pt is alert and oriented x4 and is assessed by CARE Team in the Main ED.? She is disheveled in appearance and appears older than her stated age.? Pt's eye contact and speech are within normal limits.? She reports that she wants to return to the jail.?? She reports commanding AH to harm herself which she reports having done.? At the moment of the screening, she denies any distressing AH.? She denies SI, , HI and self-harm urges.? No thoughts of harm to others.? Insight, judgement, memory and concentration appear fair. Pt's functioning today appears to be at her baseline.? She reports no distressing auditory hallucinations, which are ever present to varying degrees at her baseline.? CARE Team reinforced the use of the intervention techniques she has learned to help cope with her voices.? The plan is for pt to be discharged back to the jail.? CARE Team will secure a ride for pt.? This disposition was discussed with and agreed upon by ED Provider Viri. CARE Team contacted the jail to advise them that pt will be discharged back to the jail.? CARE Team with secure a Lyft for pt.? Staff member ?Arvin? stated that pt will return home from the hospital and smoke a large amount of cigarettes and then later, call an ambulance to return to a hospital.? He believes pt may be requesting discharge as her nicotine cravings may be more intense than her AH.? ?Arvin? stated that pt was at [facility] yesterday. CARE Team will conduct a follow up phone call this afternoon to check on the pt. F33.0 - Major depressive d/o, recurrent episode, mild, F43.10 - Post Traumatic Stress d/o, F60.3 - Borderline personality d/o
== END 2022-01-29 13:31 | disposition home or self-care (01) ==
PROVIDERS: Emergency Provider Emergency Medicine; PCP Nurse Practitioner Family
DX: F33.9 Major depressive disorder, recurrent, unspecified (principal); R44.0 Auditory hallucinations; F43.10 Post-traumatic stress disorder, unspecified; F60.3 Borderline personality disorder; F31.9 Bipolar disorder, unspecified; E11.9 Type 2 diabetes mellitus without complications; F17.210 Nicotine dependence, cigarettes, uncomplicated; Z79.84 Long term (current) use of oral hypoglycemic drugs; Z79.899 Other long term (current) drug therapy; Z91.52 Personal history of nonsuicidal self-harm
CPT/HCPCS: 80307; 81001; 87086; 99283

== ENCOUNTER 2022-02-01 16:21 | Emergency (ER) | payer MEDICARE, MEDICAID, SELFPAY ==
--- NOTE | 2022-02-01 16:29 | PC.NURSE ---
care team aware of pt arrival
[2022-02-01 16:33] VITALS: BP 148/90; PULSE 140; O2SAT 98
[2022-02-01 16:34] VITALS: BP 132/81; PULSE 101; RESP 18; TEMP 37.3; O2SAT 96; BMI 40.8
--- NOTE | 2022-02-01 17:23 | ED.PSYCH ---
HPI - Psych General Chief Complaint: Psychiatric Symptoms Stated Complaint: crisis Time Seen by Provider: 02/01/22 16:53 Source: patient Mode of arrival: ambulatory Limitations: no limitations History of Present Illness HPI Narrative: 46-year-old female with history of PTSD, borderline personality disorder and depression presents to ED for suicidal ideation and seeing shadows. Patient states today while with a skilled nursing the voices telling to kill herself became louder and she started seeing shadows does also tell her to commit suicide. Due to this patient was asked to be brought to the ED. patient has was seen by amelia of [facility] in the community and they agree for her to come to the ED to be evaluated. Patient is a regular patient of [facility] for suicide and depression. Patient's secondary complaint is minor lower abdominal pain without any nausea, vomiting, flank pain, fever, chills, dysuria, or hematuria. Related Data Home Medications Medication Instructions Recorded Confirmed atorvastatin 10 mg tablet 1 tab PO DAILY 05/29/21 01/23/22 fluticasone propionate 110 2 puff INHALATION BID 05/29/21 01/23/22 mcg/actuation HFA aerosol inhaler (Flovent HFA) metformin 500 mg tablet 1 tab PO BID 05/29/21 01/23/22 montelukast 10 mg tablet 1 tab PO BEDTIME 05/29/21 01/23/22 pantoprazole 40 mg tablet,delayed 1 tab PO BID@0630,1630 05/29/21 01/23/22 release verapamil 240 mg tablet,extended 1 tab PO BEDTIME 05/29/21 01/23/22 release albuterol sulfate 90 mcg/actuation 2 puff INHALATION Q4H PRN 06/15/21 01/23/22 aerosol inhaler (Ventolin HFA) trazodone 150 mg tablet 150 mg PO BEDTIME PRN 11/05/21 01/23/22 clonazepam 0.5 mg tablet 0.5 mg PO BID PRN 11/11/21 01/23/22 lisinopril 5 mg tablet 1 tab PO DAILY 11/14/21 01/23/22 nicotine 21 mg/24 hr daily 1 patch TRANSDERMAL DAILY PRN 11/14/21 01/23/22 transdermal patch benztropine 1 mg tablet 1 mg PO BID 12/26/21 01/23/22 chlorpromazine 25 mg tablet 75 mg PO BID PRN 12/26/21 01/23/22 naproxen 500 mg tablet 1 tab PO BID 01/23/22 01/23/22 Previous Rx's Medication Instructions Recorded hydroxyzine HCl 50 mg tablet 50 mg PO QID PRN 30 Days #120 tab 07/27/21 fluoxetine 20 mg capsule 40 mg PO DAILY 30 Days #60 cap 09/29/21 mirtazapine 7.5 mg tablet 7.5 mg PO BEDTIME MRX1 30 Days #60 10/18/21 tab prazosin 1 mg capsule 4 mg PO BEDTIME 30 Days #120 cap 10/18/21 Allergies Allergy/AdvReac Type Severity Reaction Status Date / Time Fish Containing Products Allergy Severe ANAPHYLAXIS Verified 01/26/22 10:18 codeine [Codeine] Allergy Unknown RASH Verified 01/26/22 10:18 Penicillins Allergy Unknown RASH Verified 01/26/22 10:18 prednisone [Prednisone] Allergy Unknown RASH Verified 01/26/22 10:18 Sulfa (Sulfonamide Allergy Unknown RASH Verified 01/26/22 10:18 Antibiotics) [Sulfa (Sulfonamides)] azithromycin [AZITHROMYCIN] AdvReac Severe RASH Verified 01/26/22 10:18 nicotine AdvReac Unknown HEART Verified 01/26/22 10:18 PALPITATION TO NICOTINE GUM Seafood Allergy Severe ANAPHYLAXIS Uncoded 11/05/21 21:13 From Geodon Allergy Unknown DYSURIA, Uncoded 11/05/21 21:13 RASH Review of Systems Review of Systems: Depression. Suicide. Auditory hallucinations for suicide and visual hallucinations for suicide Yes all other systems are reviewed and are negative PMFSH Past Medical History Medical History Bronchitis Diabetes type 2, controlled GERD (gastroesophageal reflux disease) Hyperlipidemia MDD (major depressive disorder), recurrent episode, severe Mood disorder Overdose PTSD (post-traumatic stress disorder) Social History Social History 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: None 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 Other:: Patient lives in skilled nursing. 4 in total live in skilled nursing. Housing: Other Housing Other:: halfway Do you presently have visiting nurse or other home services: No (Medication administered by skilled nursing staff) Unable to assess alcohol history related to: Unknown Alcohol intake: never Patient Tobacco Use Status: Current everyday Tobacco user Tobacco use type: Cigarette Cigarette Packs Per Day: 1 Cigarettes Per Day: 20 Years Smoked: 20 e-Cigarette/Vaping Use: Never Used Second Hand Smoke Exposure: Yes Substance Use Type: Caffiene Advance Directives: No Advance Directives Information Provided: No service: No Sexual orientation: Don't Know Physical Exam Vital Signs: Vital Signs: Last Vital Signs Temp 97.9 F 02/01/22 19:05 Pulse 101 H 02/01/22 19:05 Resp 16 02/01/22 19:05 BP 143/93 H 02/01/22 19:05 Pulse Ox 98 02/01/22 19:05 BMI result Body Mass Index 40.8 Const: General: cooperative, healthy appearing, comfortable, no acute distress, well developed, alert, awake and Physically active Orientation/consciousness: patient oriented x3 HEENT: Head: Yes normal to inspection, Yes No palpable skull fracture present, Yes normocephalic and Yes atraumatic Eyes: General: appearance normal, both eyes and all related structures Neck: Neck: Yes normal visual inspection, Yes full ROM, Yes no lymphadenopathy, Yes no meningeal signs, Yes trachea midline, Yes supple, No anterior neck swelling and No tender Chest: Chest palpation & inspection: normal inspection of the chest and normal palpation of entire chest wall Resp: Effort & Inspection: normal respiratory effort and able to speak in complete sentences Auscultation: clear to auscultation bilaterally Cardio: Jugular venous distension: no JVD Heart sounds: S1 normal heart sound present and S2 normal heart sound present GI: Inspection: Yes normal to inspection and No abdominal wall ecchymosis Palpation (GI): Soft to palpation, not firm, nontender, no guarding and not rigid : General: No CVA tenderness and Yes no CVA tenderness Back/Spine/Pelvis: Back: no CVA tenderness, No CVA tenderness and No back tenderness Skin: Other: old self excoriations in both upper extremities General skin exam: no rashes or lesions noted and elasticity normal Neuro: General: patient oriented x3, gait normal, no meningeal signs and CN's II-XI intact bilaterally Cranial nerves: Yes CN's II-XII intact bilaterally Extrem: General: Yes normal to inspection and Yes full ROM Psych: Other: depressed Appearance: grossly normal and well kempt Course Course Course Narrative: Will do basic labs due to patient stating abdominal pain although there is no abdominal tenderness. Care team consulted yady. Reevaluation(s) Reevaluation #1: Patient seen back care team consulted Kait who states patient is safe for discharge. Patient has good support will be going back to the skilled nursing. She states patient is at her baseline Patient is medically cleared. Gather car service called. Patient labs are normal. Patient abdominal exam is benign. No need for any imaging. Time: 20:00 MDM - Psych MDM Narrative Medical decision making narrative: Depression Lab Data Result diagrams: 02/01/22 17:24 02/01/22 17:24 Labs: Lab Results 02/01/22 02/01/22 02/01/22 Range/Units 17:24 17:24 17:24 WBC 6.6 (4.8-10.8) X10*3/uL RBC 4.15 L (4.20-5.50) X10*6/uL Hgb 12.1 (12.0-16.0) g/dl Hct 36.6 L (37.0-47.0) % MCV 88.2 (80.0-98.0) fL MCH 29.2 (27.0-33.0) pg MCHC 33.1 (31.0-35.0) g/dl RDW 13.7 (11.0-16.0) % Plt Count 208 (160-400) X10*3/uL MPV 10.0 (9.4-12.3) fL Immature Gran % (Auto) 0.3 (0.0-0.4) % Neut % (Auto) 72.5 (45-73) % Lymph % (Auto) 15.1 L (20-40) % [place] % (Auto) 8.3 (2-11) % Eos % (Auto) 3.6 (0-4) % Baso % (Auto) 0.2 (0-2) % Lymph # (Auto) 1.0 L (1.2-4.9) X10*3/uL [place] # (Auto) 0.6 (0.1-1.2) X10*3/uL Eos # (Auto) 0.2 (0.0-0.4) X10*3/uL Baso # (Auto) 0.0 (0.0-0.2) X10*3/uL Abs Immat Gran (auto) 0.02 (0.00-0.03) X10*3/uL Absolute Neuts (auto) 4.8 (2.0-8.3) x10*3/uL Absolute Nucleated RBC 0.000 (0.0-0.012) X10*3/uL Nucleated RBC % (auto) 0.0 (0.0-0.2) /100WBC Sodium 139 (135-145) mmol/L Potassium 3.4 (3.3-5.1) mmol/L Chloride 107 (96-108) mmol/L Carbon Dioxide 23 (22-29) mmol/L Anion Gap 12 (12-20) BUN 9 (9-16) mg/dL Creatinine 0.80 (0.5-1.4) mg/dL Estim Creat Clear Calc 107.7 Estimated GFR > 60 Random Glucose 116 H (60-115) mg/dL Calcium 8.5 (8.4-10.2) mg/dL Total Bilirubin 0.4 (0.0-1.0) mg/dL AST 20 (5-31) U/L ALT 13 (0-31) U/L Alkaline Phosphatase 82 (39-117) U/L Total Protein 6.5 (6.5-8.0) g/dL Albumin 4.1 (3.5-5.0) g/dL Urine Color Urine Appearance Urine pH (5.0-8.0) Ur Specific [place] (1.005-1.025) Urine Protein (NEG-TRACE) MG/DL Urine Glucose (UA) (NEG) MG/DL Urine Ketones (NEG) MG/DL Urine Blood (NEG) Urine Nitrite (NEG) Ur Leukocyte Esterase (NEG) Urine RBC (0) /HPF Urine WBC (0-4) /HPF Ur Squamous Epith Cells /LPF Urine Bacteria /LPF Urine Test (NEGATIVE) Urine Opiates Screen (Not Detect) Urine Fentanyl Screen (Not Detect) Ur Barbiturates Screen (Not Detect) Ur Phencyclidine Scrn (Not Detect) Ur Amphetamines Screen (Not Detect) U Benzodiazepines Scrn (Not Detect) Urine Cocaine Screen (Not Detect) U Marijuana (THC) Screen (Not Detect) Ethyl Alcohol < 10 mg/dL 02/01/22 02/01/22 02/01/22 Range/Units 17:24 17:24 17:24 WBC (4.8-10.8) X10*3/uL RBC (4.20-5.50) X10*6/uL Hgb (12.0-16.0) g/dl Hct (37.0-47.0) % MCV (80.0-98.0) fL MCH (27.0-33.0) pg MCHC (31.0-35.0) g/dl RDW (11.0-16.0) % Plt Count (160-400) X10*3/uL MPV (9.4-12.3) fL Immature Gran % (Auto) (0.0-0.4) % Neut % (Auto) (45-73) % Lymph % (Auto) (20-40) % [place] % (Auto) (2-11) % Eos % (Auto) (0-4) % Baso % (Auto) (0-2) % Lymph # (Auto) (1.2-4.9) X10*3/uL [place] # (Auto) (0.1-1.2) X10*3/uL Eos # (Auto) (0.0-0.4) X10*3/uL Baso # (Auto) (0.0-0.2) X10*3/uL Abs Immat Gran (auto) (0.00-0.03) X10*3/uL Absolute Neuts (auto) (2.0-8.3) x10*3/uL Absolute Nucleated RBC (0.0-0.012) X10*3/uL Nucleated RBC % (auto) (0.0-0.2) /100WBC Sodium (135-145) mmol/L Potassium (3.3-5.1) mmol/L Chloride (96-108) mmol/L Carbon Dioxide (22-29) mmol/L Anion Gap (12-20) BUN (9-16) mg/dL Creatinine (0.5-1.4) mg/dL Estim Creat Clear Calc Estimated GFR Random Glucose (60-115) mg/dL Calcium (8.4-10.2) mg/dL Total Bilirubin (0.0-1.0) mg/dL AST (5-31) U/L ALT (0-31) U/L Alkaline Phosphatase (39-117) U/L Total Protein (6.5-8.0) g/dL Albumin (3.5-5.0) g/dL Urine Color YELLOW Urine Appearance CLEAR Urine pH 5.5 (5.0-8.0) Ur Specific [place] <= 1.005 (1.005-1.025) Urine Protein NEG (NEG-TRACE) MG/DL Urine Glucose (UA) NEG (NEG) MG/DL Urine Ketones NEG (NEG) MG/DL Urine Blood NEG (NEG) Urine Nitrite NEG (NEG) Ur Leukocyte Esterase TRACE H (NEG) Urine RBC 0-2 (0) /HPF Urine WBC 0-2 (0-4) /HPF Ur Squamous Epith Cells TRACE /LPF Urine Bacteria 2+ /LPF Urine Test NEGATIVE (NEGATIVE) Urine Opiates Screen Not Detected (Not Detect) Urine Fentanyl Screen Not Detected (Not Detect) Ur Barbiturates Screen Not Detected (Not Detect) Ur Phencyclidine Scrn Not Detected (Not Detect) Ur Amphetamines Screen Not Detected (Not Detect) U Benzodiazepines Scrn Not Detected (Not Detect) Urine Cocaine Screen Not Detected (Not Detect) U Marijuana (THC) Screen Not Detected (Not Detect) Ethyl Alcohol mg/dL Discharge Plan Discharge Clinical Impression: Depression, Borderline personality disorder Patient Disposition: Home, Self-Care Instructions: Depression (DC), Borderline Personality Disorder (DC) Additional Instructions: Return to the ED immediately for any suicidal/homicidal ideation, auditory/visual hallucinations, any physical complaints, or any other concerning symptoms. Please follow-up with primary care provider, psychiatrist, and therapist. Prescriptions: No Action metformin 500 mg tablet 1 tab PO BID 0RF atorvastatin 10 mg tablet 1 tab PO DAILY 0RF pantoprazole 40 mg tablet,delayed release (DR/EC) 1 tab PO BID@0630,1630 0RF verapamil 240 mg tablet extended release 1 tab PO BEDTIME 0RF montelukast 10 mg tablet 1 tab PO BEDTIME 0RF Flovent HFA 110 mcg/actuation HFA aerosol inhaler 2 puff inhalation BID 0RF albuterol sulfate [Ventolin HFA] 90 mcg/actuation HFA aerosol inhaler 2 puff inhalation Q4H PRN (Reason: Shortness Of Breath) 0RF trazodone 150 mg tablet 150 mg PO BEDTIME PRN (Reason: insomnia) 0RF clonazepam 0.5 mg tablet 0.5 mg PO BID PRN (Reason: anxiety/AH) 0RF Rx Instructions: may take within 1 hour of each other; max dose 1mg daily benztropine 1 mg tablet 1 mg PO BID 0RF chlorpromazine 25 mg tablet 75 mg PO BID PRN (Reason: agitation) 0RF naproxen 500 mg tablet 1 tab PO BID 0RF hydroxyzine HCl 50 mg Tablet 50 mg PO QID PRN (Reason: Anxiety) 30 Days Qty: 120 0RF fluoxetine 20 mg Capsule 40 mg PO DAILY 30 Days Qty: 60 0RF prazosin 1 mg Capsule 4 mg PO BEDTIME 30 Days Qty: 120 0RF Protocol: Hold for SBP< HOLD for SBP < : 90 mirtazapine 7.5 mg Tablet 7.5 mg PO BEDTIME MRX1 30 Days Qty: 60 0RF lisinopril 5 mg tablet 1 tab PO DAILY 0RF nicotine 21 mg/24 hr Patch 24 Hour 1 patch TRANSDERMAL DAILY PRN (Reason: Nicotine Cravings) 0RF Interventions: ED Discharge Assessment Last Done: 02/01/22 20:06 Discharge Date/Time: 02/01/22 20:07 Print Language: German
[2022-02-01 17:32] LABS: MANUAL DIFF FLAG NO
[2022-02-01 17:33] LABS: Basophils Percent Auto 0.2 % (0-2); Eosinophils Absolute Auto 0.2 X10*3/uL (0.0-0.4); Eosinophils Percent Auto 3.6 % (0-4); Hematocrit 36.6 % (37.0-47.0); Hemoglobin 12.1 g/dl (12.0-16.0); Imm Gran Abs Auto 0.02 X10*3/uL (0.00-0.03); Imm Gran Pct Auto 0.3 % (0.0-0.4); Lymphocytes Percent Auto 15.1 % (20-40); Mean Corpuscular HGB Conc 33.1 g/dl (31.0-35.0); Mean Corpuscular Hemoglobin 29.2 pg (27.0-33.0); Mean Corpuscular Volume 88.2 fL (80.0-98.0); Monocytes Absolute Auto 0.6 X10*3/uL (0.1-1.2); Monocytes Percent Auto 8.3 % (2-11); Neutrophils Absolute Auto 4.8 x10*3/uL (2.0-8.3); Neutrophils Percent Auto 72.5 % (45-73); Platelet Count 208 X10*3/uL (160-400); Red Blood Count 4.15 X10*6/uL (4.20-5.50); Red Cell Distribution Width 13.7 % (11.0-16.0); White Blood Count 6.6 X10*3/uL (4.8-10.8)
[2022-02-01 17:34] LABS: Appearance Urine CLEAR; Color Urine YELLOW; Glucose Urine UA NEG (NEG); Leukocyte Esterase Urine TRACE (NEG); Nitrite Urine NEG (NEG); PH 5.5 (5.0-8.0); Specific Gravity - Urine <= 1.005 (1.005-1.025); UACC Culture Trigger YES; Urine Blood NEG (NEG); Urine Ketones NEG (NEG); Urine Protein NEG (NEG-TRACE)
[2022-02-01 17:50] LABS: Alanine Aminotransferase 13 U/L (0-31); Albumin Level 4.1 g/dL (3.5-5.0); Alkaline Phosphatase 82 U/L (39-117); Anion Gap 12 (12-20); Aspartate Amino Transferase 20 U/L (5-31); Bilirubin Total 0.4 mg/dL (0.0-1.0); Blood Urea Nitrogen 9 mg/dL (9-16); Calcium 8.5 mg/dL (8.4-10.2); Carbon Dioxide 23 mmol/L (22-29); Chloride 107 mmol/L (96-108); Creatinine Clr Calc Pharmacy 107.7; Estimated Glomerular Filt Rate > 60; Ethanol < 10 mg/dL; Glucose Random 116 mg/dL (60-115); Potassium 3.4 mmol/L (3.3-5.1); Sodium 139 mmol/L (135-145); Total Protein 6.5 g/dL (6.5-8.0)
[2022-02-01 17:52] LABS: Bacteria Urine 2+ /LPF; RBC Urine 0-2 /HPF (0); Squamous Epithelial Cell Urine TRACE /LPF; UPreg QC Valid YES; Urine Pregnancy NEGATIVE (NEGATIVE); WBC Urine 0-2 /HPF (0-4)
[2022-02-01 17:54] LABS: Amphetamine Screen Urine Not Detected (Not Detect); Barbiturates, Urine Not Detected (Not Detect); Benzodiazepines Screen Urine Not Detected (Not Detect); Cannabinoid Screen Urine Not Detected (Not Detect); Cocaine Screen Urine Not Detected (Not Detect); Fentanyl, urine Not Detected (Not Detect); Opiate Screen Urine Not Detected (Not Detect); Phencyclidine Screen Urine Not Detected (Not Detect)
[2022-02-01 19:05] VITALS: BP 143/93; PULSE 101; RESP 16; TEMP 36.6; O2SAT 98
--- NOTE | 2022-02-01 19:29 | PC.NURSE ---
Care team at bedside. Patient alert and calm, denies SI at this time. 1:1 sitter at bedside.
--- NOTE | 2022-02-01 19:33 | MHC.CARE ---
CARE Team meets with pt at her request, as pt and TW have a strong rapport and have been working closely together. Pt states that she came to the ED due to seeing shadows and experiencing increased dissociative episodes, accompanied by SI. Pt identifies that she has been increasingly emotionally dysregulated due to one of her favorite staff leaving the alf in two days. CARE Team supports pt in weighing out the pros and cons of hospitalization, which is what pt is initially seeking. Pt identifies that she would like to go home and spend her last couple of days with the staff person who is leaving. Pt also identifies that a new peer has moved into the alf, and this has been an adjustment. Pt experiences SI and SH at baseline, and these symptoms are not mitigated by inpt treatment. It is recommended that pt discharge home to continue working with her alf and outpatient providers who know her well. Pt denies any current SI or self harm urges, and feels that she can maintain her safety until she does to sleep at approx 2130. Plan is for pt to discharge to home and for CARE Team to have a follow up call with pt in the morning. This plan is discussed with TIMI Worthington and a VM is left for her alf. In working with [facility] in the past, food processing plant manager Toni Pittman is agreeable with pt discharging once she feels safe and ready.
== END 2022-02-01 20:07 | disposition home or self-care (01) ==
PROVIDERS: Physician Assistant; Emergency Provider Emergency Medicine Emergency Medical Services; PCP Nurse Practitioner Family
DX: F33.9 Major depressive disorder, recurrent, unspecified (principal); F60.3 Borderline personality disorder; R10.30 Lower abdominal pain, unspecified; E11.9 Type 2 diabetes mellitus without complications; Z79.84 Long term (current) use of oral hypoglycemic drugs; Z79.899 Other long term (current) drug therapy
CPT/HCPCS: 36415; 80053; 80307; 81001; 81025; 82077; 85025; 87086; 99285

== ENCOUNTER 2022-02-01 20:21 | Emergency (ER) | payer MEDICARE, MEDICAID, SELFPAY ==
--- NOTE | 2022-02-01 22:13 | ED_ITS ---
HPI - Psych General Chief Complaint: Psychiatric Symptoms Stated Complaint: feels like hurting herself,,voices Source: patient Mode of arrival: ambulatory Limitations: no limitations History of Present Illness HPI Narrative: Patient returns to the ED due to her not receiving transport to return back to correction. Patient was just discharged from the ER and care team furniture sales consultant called lift service but no car has come to the patient. So patient's sign back into the ER and has same complaints. This is her baseline. Patient admits to smoking while waiting for transport and decided to come in. Related Data Home Medications Medication Instructions Recorded Confirmed atorvastatin 10 mg tablet 1 tab PO DAILY 05/29/21 02/02/22 fluticasone propionate 110 2 puff INHALATION BID 05/29/21 02/02/22 mcg/actuation HFA aerosol inhaler (Flovent HFA) metformin 500 mg tablet 1 tab PO BID 05/29/21 02/02/22 montelukast 10 mg tablet 1 tab PO BEDTIME 05/29/21 02/02/22 pantoprazole 40 mg tablet,delayed 1 tab PO BID@0630,1630 05/29/21 02/02/22 release verapamil 240 mg tablet,extended 1 tab PO BEDTIME 05/29/21 02/02/22 release albuterol sulfate 90 mcg/actuation 2 puff INHALATION Q4H PRN 06/15/21 02/02/22 aerosol inhaler (Ventolin HFA) trazodone 150 mg tablet 150 mg PO BEDTIME PRN 11/05/21 02/02/22 clonazepam 0.5 mg tablet 0.5 mg PO BID PRN 11/11/21 02/02/22 lisinopril 5 mg tablet 1 tab PO DAILY 11/14/21 02/02/22 nicotine 21 mg/24 hr daily 1 patch TRANSDERMAL DAILY PRN 11/14/21 02/02/22 transdermal patch benztropine 1 mg tablet 1 mg PO BID 12/26/21 02/02/22 chlorpromazine 25 mg tablet 75 mg PO BID PRN 12/26/21 02/02/22 naproxen 500 mg tablet 1 tab PO BID 01/23/22 02/02/22 Previous Rx's Medication Instructions Recorded hydroxyzine HCl 50 mg tablet 50 mg PO QID PRN 30 Days #120 tab 07/27/21 fluoxetine 20 mg capsule 40 mg PO DAILY 30 Days #60 cap 09/29/21 mirtazapine 7.5 mg tablet 7.5 mg PO BEDTIME MRX1 30 Days #60 10/18/21 tab prazosin 1 mg capsule 4 mg PO BEDTIME 30 Days #120 cap 10/18/21 Allergies Allergy/AdvReac Type Severity Reaction Status Date / Time Fish Containing Products Allergy Severe ANAPHYLAXIS Verified 01/26/22 10:18 codeine [Codeine] Allergy Unknown RASH Verified 01/26/22 10:18 Penicillins Allergy Unknown RASH Verified 01/26/22 10:18 prednisone [Prednisone] Allergy Unknown RASH Verified 01/26/22 10:18 Sulfa (Sulfonamide Allergy Unknown RASH Verified 01/26/22 10:18 Antibiotics) [Sulfa (Sulfonamides)] azithromycin [AZITHROMYCIN] AdvReac Severe RASH Verified 01/26/22 10:18 nicotine AdvReac Unknown HEART Verified 01/26/22 10:18 PALPITATION TO NICOTINE GUM Seafood Allergy Severe ANAPHYLAXIS Uncoded 11/05/21 21:13 From Geodon Allergy Unknown DYSURIA, Uncoded 11/05/21 21:13 RASH Review of Systems Review of Systems: Depression Yes all other systems are reviewed and are negative [facility] Past Medical History Medical History Bronchitis Diabetes type 2, controlled GERD (gastroesophageal reflux disease) Hyperlipidemia MDD (major depressive disorder), recurrent episode, severe Mood disorder Overdose PTSD (post-traumatic stress disorder) Social History Social History 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: None 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 Other:: Patient lives in correction. 4 in total live in correction. Housing: Other Housing Other:: [facility] Do you presently have visiting nurse or other home services: No (Medication administered by correction staff) Unable to assess alcohol history related to: Unknown Alcohol intake: never Patient Tobacco Use Status: Current everyday Tobacco user Tobacco use type: Cigarette Cigarette Packs Per Day: 1 Cigarettes Per Day: 20 Years Smoked: 20 e-Cigarette/Vaping Use: Never Used Second Hand Smoke Exposure: Yes Substance Use Type: Caffiene Advance Directives: No Advance Directives Information Provided: No service: No Sexual orientation: Don't Know Physical Exam Vital Signs: Vital Signs: BMI result Body Mass Index 41.6 Const: General: cooperative, healthy appearing, comfortable, no acute distress, well developed, alert and awake Orientation/consciousness: patient oriented x3 HEENT: Head: Yes normal to inspection, Yes No palpable skull fracture present, Yes normocephalic, Yes atraumatic and No abrasion Eyes: General: appearance normal, both eyes and all related structures Neck: Neck: Yes normal visual inspection, Yes full ROM, Yes no lymphadenopathy, Yes no meningeal signs, Yes trachea midline, Yes supple, No anterior neck swelling and No tender Chest: Chest palpation & inspection: normal inspection of the chest and normal palpation of entire chest wall Resp: Effort & Inspection: normal respiratory effort and able to speak in complete sentences Auscultation: clear to auscultation bilaterally Cardio: Jugular venous distension: no JVD Heart sounds: S1 normal heart sound present and S2 normal heart sound present GI: Inspection: Yes normal to inspection and No abdominal wall ecchymosis Palpation (GI): Soft to palpation, not firm, nontender, no guarding and not rigid : General: No CVA tenderness and Yes no CVA tenderness Back/Spine/Pelvis: Back: no CVA tenderness, No CVA tenderness and No back tenderness Skin: Other: old upper extremities excorations Neuro: General: patient oriented x3, gait normal, no meningeal signs and CN's II-XI intact bilaterally Cranial nerves: Yes CN's II-XII intact bilaterally Extrem: General: Yes normal to inspection and Yes full ROM Psych: Appearance: grossly normal, well kempt and not disheveled Course Course Course Narrative: Spoke with care team Elaine will come talk to patient and organize transport. Reevaluation(s) Reevaluation #1: Spoke with care team consultants Hayder. She also spoke with patient. Patient does not need any psych admission. Patient is at her baseline. I agree plan. Patient to stay overnight in the ER and be seen by care team in the morning to organize transportation. Patient night meds ordered. Patient on any distress. Time: 01:14 Discharge Plan Discharge Clinical Impression: Depression Patient Disposition: Still a Patient Prescriptions: No Action metformin 500 mg tablet 1 tab PO BID 0RF atorvastatin 10 mg tablet 1 tab PO DAILY 0RF pantoprazole 40 mg tablet,delayed release (DR/EC) 1 tab PO BID@0630,1630 0RF verapamil 240 mg tablet extended release 1 tab PO BEDTIME 0RF montelukast 10 mg tablet 1 tab PO BEDTIME 0RF Flovent HFA 110 mcg/actuation HFA aerosol inhaler 2 puff inhalation BID 0RF albuterol sulfate [Ventolin HFA] 90 mcg/actuation HFA aerosol inhaler 2 puff inhalation Q4H PRN (Reason: Shortness Of Breath) 0RF trazodone 150 mg tablet 150 mg PO BEDTIME PRN (Reason: insomnia) 0RF clonazepam 0.5 mg tablet 0.5 mg PO BID PRN (Reason: anxiety/AH) 0RF Rx Instructions: may take within 1 hour of each other; max dose 1mg daily benztropine 1 mg tablet 1 mg PO BID 0RF chlorpromazine 25 mg tablet 75 mg PO BID PRN (Reason: agitation) 0RF naproxen 500 mg tablet 1 tab PO BID 0RF hydroxyzine HCl 50 mg Tablet 50 mg PO QID PRN (Reason: Anxiety) 30 Days Qty: 120 0RF fluoxetine 20 mg Capsule 40 mg PO DAILY 30 Days Qty: 60 0RF prazosin 1 mg Capsule 4 mg PO BEDTIME 30 Days Qty: 120 0RF Protocol: Hold for SBP< HOLD for SBP < : 90 mirtazapine 7.5 mg Tablet 7.5 mg PO BEDTIME MRX1 30 Days Qty: 60 0RF lisinopril 5 mg tablet 1 tab PO DAILY 0RF nicotine 21 mg/24 hr Patch 24 Hour 1 patch TRANSDERMAL DAILY PRN (Reason: Nicotine Cravings) 0RF
[2022-02-01 22:42] VITALS: BMI 41.6
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
[2022-02-02 00:05] VITALS: PULSE 78; RESP 16; O2SAT 98
--- NOTE | 2022-02-02 01:26 | PC.NURSE ---
pt escorted out of ER by radio tower technician to get her lyft that was ordered for her
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
== END 2022-02-02 01:27 | disposition home or self-care (01) ==
PROVIDERS: Emergency Provider Emergency Medicine Emergency Medical Services; PCP Nurse Practitioner Family
DX: F33.9 Major depressive disorder, recurrent, unspecified (principal); E11.9 Type 2 diabetes mellitus without complications; Z79.84 Long term (current) use of oral hypoglycemic drugs; Z79.899 Other long term (current) drug therapy
CPT/HCPCS: 36415; 80053; 80307; 81001; 81025; 82077; 85025; 87086; 99284; 99285

== ENCOUNTER 2022-02-03 19:14 | Emergency (ER) | payer MEDICARE, MEDICAID, SELFPAY ==
--- NOTE | 2022-02-03 19:20 | ED_ITS ---
HPI - Psych General Chief Complaint: Psychiatric Symptoms Stated Complaint: Section 12 Time Seen by Provider: 02/03/22 19:20 Source: patient, EMS and police Mode of arrival: EMS Limitations: no limitations History of Present Illness HPI Narrative: 46-year-old female past medical history borderline personality disorder, depression, anxiety, bipolar 2 with melancholic features, PTSD, DM, GERD presents to the ED with?auditory and visual hallucinations and SI w/o plan ? X1 day.? Patient presents via ambulance on a Section 12. She has superficial self- inflicted wounds to the left forearm and abdomen, patient tells me she cut herself with a broken cup. Up-to-date on a tetanus shot per patient. She tells me voices are telling her to harm herself. Denies a precipitating event. Denies tactile hallucinations. She denies drugs, alcohol.? She admits to tobacco use daily.? Patient requesting a nicotine patch today.? Denies homicidal ideation.? Denies medical complaints.?? MD complaint: suicidal ideation and feels depressed Onset (ago): day(s) Duration: constant History of same: Yes Relieving factors: none Exacerbating factors: none Associated psychiatric symptoms: none Associated symptoms: denies other symptoms Treatments prior to arrival: placed on mental health hold If self harm: admits thoughts of self harm Related Data Home Medications Medication Instructions Recorded Confirmed atorvastatin 10 mg tablet 1 tab PO DAILY 05/29/21 02/03/22 fluticasone propionate 110 2 puff INHALATION BID 05/29/21 02/03/22 mcg/actuation HFA aerosol inhaler (Flovent HFA) metformin 500 mg tablet 1 tab PO BID 05/29/21 02/03/22 montelukast 10 mg tablet 1 tab PO BEDTIME 05/29/21 02/03/22 pantoprazole 40 mg tablet,delayed 1 tab PO BID@0630,1630 05/29/21 02/03/22 release verapamil 240 mg tablet,extended 1 tab PO BEDTIME 05/29/21 02/03/22 release albuterol sulfate 90 mcg/actuation 2 puff INHALATION Q4H PRN 06/15/21 02/03/22 aerosol inhaler (Ventolin HFA) trazodone 150 mg tablet 150 mg PO BEDTIME PRN 11/05/21 02/03/22 clonazepam 0.5 mg tablet 0.5 mg PO BID PRN 11/11/21 02/03/22 lisinopril 5 mg tablet 1 tab PO DAILY 11/14/21 02/03/22 nicotine 21 mg/24 hr daily 1 patch TRANSDERMAL DAILY PRN 11/14/21 02/03/22 transdermal patch benztropine 1 mg tablet 1 mg PO BID 12/26/21 02/03/22 chlorpromazine 25 mg tablet 75 mg PO BID PRN 12/26/21 02/03/22 naproxen 500 mg tablet 1 tab PO BID 01/23/22 02/03/22 Previous Rx's Medication Instructions Recorded hydroxyzine HCl 50 mg tablet 50 mg PO QID PRN 30 Days #120 tab 07/27/21 fluoxetine 20 mg capsule 40 mg PO DAILY 30 Days #60 cap 09/29/21 mirtazapine 7.5 mg tablet 7.5 mg PO BEDTIME MRX1 30 Days #60 10/18/21 tab prazosin 1 mg capsule 4 mg PO BEDTIME 30 Days #120 cap 10/18/21 Allergies Allergy/AdvReac Type Severity Reaction Status Date / Time Fish Containing Products Allergy Severe ANAPHYLAXIS Verified 01/26/22 10:18 codeine [Codeine] Allergy Unknown RASH Verified 01/26/22 10:18 Penicillins Allergy Unknown RASH Verified 01/26/22 10:18 prednisone [Prednisone] Allergy Unknown RASH Verified 01/26/22 10:18 Sulfa (Sulfonamide Allergy Unknown RASH Verified 01/26/22 10:18 Antibiotics) [Sulfa (Sulfonamides)] azithromycin [AZITHROMYCIN] AdvReac Severe RASH Verified 01/26/22 10:18 nicotine AdvReac Unknown HEART Verified 01/26/22 10:18 PALPITATION TO NICOTINE GUM Seafood Allergy Severe ANAPHYLAXIS Uncoded 11/05/21 21:13 From Geodon Allergy Unknown DYSURIA, Uncoded 11/05/21 21:13 RASH Review of Systems Review of Systems: Constitutional : No Weight loss, No Fever, No Chills, No Fatigue, No Malaise ENT/Mouth : No sore throat, No Rhinorrhea Eyes: No Eye Pain, No Swelling, No Redness Cardiovascular : No Chest Pain, No SOB, No Dyspnea on Exertion, No Orthopnea, No Edema, No Palpitations Respiratory : No Cough, No Sputum, No Wheezing Gastrointestinal : No Nausea, No Vomiting, No Diarrhea, No Constipation, No abdominal Pain, No Hematochezia, No Melena Genitourinary : No Dysuria, No Urinary Frequency, No Hematuria, Musculoskeletal : No joint pain, No Myalgias, No Joint Swelling Skin : No Skin Lesions, No rash Neuro : No Weakness, No Numbness, No Dizziness, No Headache Psych : + Anxiety/Panic, No Depression, +SI All other systems reviewed and are negative Yes all other systems are reviewed and are negative [facility] Past Medical History Attestation statement: The following information was validated with the patient. Source: old records reviewed and nursing notes reviewed Medical History Bronchitis Diabetes type 2, controlled GERD (gastroesophageal reflux disease) Hyperlipidemia MDD (major depressive disorder), recurrent episode, severe Mood disorder Overdose PTSD (post-traumatic stress disorder) Social History Social History 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: None 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 Other:: Patient lives in [facility]. 4 in total live in [facility]. Housing: Other Housing Other:: half-way Do you presently have visiting nurse or other home services: No (Medication administered by [facility] staff) Unable to assess alcohol history related to: Unknown Alcohol intake: never Patient Tobacco Use Status: Current everyday Tobacco user Tobacco use type: Cigarette Cigarette Packs Per Day: 1 Cigarettes Per Day: 20 Years Smoked: 20 e-Cigarette/Vaping Use: Never Used Second Hand Smoke Exposure: Yes Substance Use Type: Caffiene Advance Directives: No Advance Directives Information Provided: No Patient : No service: No Sexual orientation: Don't Know Physical Exam Vital Signs: Vital Signs: Last Vital Signs Temp 99.1 F 02/03/22 19: Pulse 92 02/03/22 19:22 Resp 19 02/03/22 19: BP 144/72 H 02/03/22 19: Pulse Ox 97 02/03/22 19:22 BMI result Body Mass Index 38.6 Vital signs stable Appearance: Alert.? Oriented X3.? No acute distress.? Head: Normocephalic, atraumatic, no step-offs or deformities Eyes: Pupils equal, round and reactive to light.? ENT: Pharynx normal.? Neck: Normal inspection.? Neck supple.? CVS: Normal heart rate and rhythm.? Pulses normal.? Respiratory: No respiratory distress.? Breath sounds normal.? Abdomen: Soft and nontender.? Skin: Skin warm and dry.? Normal skin color.? Normal skin turgor.?+ superficial self-inflicted wounds to left forearm, abdomen Extremities: No lower extremity edema.? No calf ttp. 5/5 strength to bilateral upper and lower extremities Back: No midline tenderness, no C-spine tenderness, full range of motion, no CVA tenderness bilaterally Neuro: Oriented X 3.? No motor deficit.? No sensory deficit. CN 2-12 intact Course Reevaluation(s) Reevaluation #1: Care team saw patient, patient would like to go home. We both agree with plan. TORRES negative. COVID negative. At this time patient will be discharged back to [facility]. She tells me she is feeling better. Comfortable discharge home Time: 20:53 MDM - Psych MDM Narrative Medical decision making narrative: 1921 46 yo f presents w/ with?auditory and visual hallucinations and SI w/o plan, self-inflicted wounds day PE significant for superficial self-inflicted wounds to left forearm, and abdomen. They are superficial and do not require Dermabond or sutures. Plan- medical clearance and behavioral health consult Patient denies medical complaints, lungs are clear, regular rate and rhythm. Patient was seen here 2 days ago and had full labs done which were within normal limits at this time I will not repeat lab work. I will obtain a urine and COVID swab. Medical Records Attestation: I reviewed the patient's medical records. Lab Data Attestation: I reviewed the patient's lab results. Labs: Lab Results 02/03/22 02/03/22 Range/Units 19:40 20:14 Urine Opiates Screen Not Detected (Not Detect) Urine Fentanyl Screen Not Detected (Not Detect) Ur Barbiturates Screen Not Detected (Not Detect) Ur Phencyclidine Scrn Not Detected (Not Detect) Ur Amphetamines Screen Not Detected (Not Detect) U Benzodiazepines Scrn Not Detected (Not Detect) Urine Cocaine Screen Not Detected (Not Detect) U Marijuana (THC) Screen Not Detected (Not Detect) COVID-19 (NICK) Negative (Negative) COVID-19 Clin Com See Note Discharge Plan Discharge Clinical Impression: Depression, Borderline personality disorder, Self-inflicted laceration of left wrist Patient Disposition: Home, Self-Care Instructions: Depression (ED), Borderline Personality Disorder (DC), Laceration Without Closure (ED) Additional Instructions: Take your medications as prescribed. If you were prescribed antibiotics today, it is important that you take your medication to their entirety, do not skip any doses, do not finish them early. Follow-up with your primary care provider this week. Return to the emergency department with new or worsening symptoms. Such as fevers, chills, chest pain, shortness of breath, nausea, vomiting, dizziness, headache, vision changes, lethargy, suicidal ideation, homicidal ideation, anxi ety, depression, worsening symptoms In case of emergency call 911 Prescriptions: No Action metformin 500 mg tablet 1 tab PO BID 0RF atorvastatin 10 mg tablet 1 tab PO DAILY 0RF pantoprazole 40 mg tablet,delayed release (DR/EC) 1 tab PO BID@0630,1630 0RF verapamil 240 mg tablet extended release 1 tab PO BEDTIME 0RF montelukast 10 mg tablet 1 tab PO BEDTIME 0RF Flovent HFA 110 mcg/actuation HFA aerosol inhaler 2 puff inhalation BID 0RF albuterol sulfate [Ventolin HFA] 90 mcg/actuation HFA aerosol inhaler 2 puff inhalation Q4H PRN (Reason: Shortness Of Breath) 0RF trazodone 150 mg tablet 150 mg PO BEDTIME PRN (Reason: insomnia) 0RF clonazepam 0.5 mg tablet 0.5 mg PO BID PRN (Reason: anxiety/AH) 0RF Rx Instructions: may take within 1 hour of each other; max dose 1mg daily benztropine 1 mg tablet 1 mg PO BID 0RF chlorpromazine 25 mg tablet 75 mg PO BID PRN (Reason: agitation) 0RF naproxen 500 mg tablet 1 tab PO BID 0RF hydroxyzine HCl 50 mg Tablet 50 mg PO QID PRN (Reason: Anxiety) 30 Days Qty: 120 0RF fluoxetine 20 mg Capsule 40 mg PO DAILY 30 Days Qty: 60 0RF prazosin 1 mg Capsule 4 mg PO BEDTIME 30 Days Qty: 120 0RF Protocol: Hold for SBP< HOLD for SBP < : 90 mirtazapine 7.5 mg Tablet 7.5 mg PO BEDTIME MRX1 30 Days Qty: 60 0RF lisinopril 5 mg tablet 1 tab PO DAILY 0RF nicotine 21 mg/24 hr Patch 24 Hour 1 patch TRANSDERMAL DAILY PRN (Reason: Nicotine Cravings) 0RF [facility]errals: [facility] [Provider Group[facility] - 2 days Physician,Unknown J [Primary Care Provider] - 2 days
[2022-02-03 19:22] VITALS: BP 144/72; PULSE 92; RESP 19; TEMP 37.3; O2SAT 97; BMI 38.6
[2022-02-03 20:02] LABS: COVID-19 Test Negative (Negative)
--- NOTE | 2022-02-03 20:19 | PHA.MEDREC ---
Pharmacy Consult ? Medication Reconciliation Pharmacy has completed the medication reconciliation. No remarkable issues. Arianna Grande, MarjD
[2022-02-03 20:35] LABS: Amphetamine Screen Urine Not Detected (Not Detect); Barbiturates, Urine Not Detected (Not Detect); Benzodiazepines Screen Urine Not Detected (Not Detect); Cannabinoid Screen Urine Not Detected (Not Detect); Cocaine Screen Urine Not Detected (Not Detect); Fentanyl, urine Not Detected (Not Detect); Opiate Screen Urine Not Detected (Not Detect); Phencyclidine Screen Urine Not Detected (Not Detect)
--- NOTE | 2022-02-03 21:04 | MHC.CARE ---
Pt met with the CARE team. Pt reports she is anxious due to other behavioral pt in the pod. Pt appears visibly anxious an reports she wants to go home, take her medications and go to sleep. She reports she is struggling today because her leadership program associate's last day was today and she did not get to say goodbye and she had left early. Pt is denying SI and AH appear at baseline at this time. Pt did engage in superficial today. Pt is calm and cooperative and awaiting a lyft at this time.
== END 2022-02-03 22:17 | disposition home or self-care (01) ==
PROVIDERS: Physician Assistant; Emergency Provider Internal Medicine
DX: S61.512A Laceration without foreign body of left wrist, initial encounter (principal); R45.851 Suicidal ideations; F33.1 Major depressive disorder, recurrent, moderate; F60.3 Borderline personality disorder; F17.210 Nicotine dependence, cigarettes, uncomplicated; X78.1XXA Intentional self-harm by knife, initial encounter; Y93.9 Activity, unspecified; Y92.9 Unspecified place or not applicable; Y99.9 Unspecified external cause status; Z20.822 Contact with and (suspected) exposure to COVID-19; Z71.6 Tobacco abuse counseling; Z79.899 Other long term (current) drug therapy
CPT/HCPCS: 80307; 87635; 99282; 99283

== ENCOUNTER 2022-02-04 18:59 | Emergency (ER) | payer MEDICARE, MEDICAID, SELFPAY ==
--- NOTE | ~2022-02-04 | CT_ITS ---
EXAMINATION: CT HEAD WITHOUT CONTRAST CT CERVICAL SPINE WITHOUT CONTRAST CLINICAL INFORMATION: Fall COMPARISON: 03.28.2019. TECHNIQUE: Multidetector CT imaging of the head and cervical spine was performed without the use of intravenous contrast. Multiplanar reformats are reviewed. This CT examination was performed using dose optimization techniques as appropriate, variously including the following: *Automated exposure control *Adjustment of mA and/or kV according to patient size (this includes techniques or standardized protocols for targeted exams where dose is matched to indication/reason for exam; i.e. extremities or head) *Use of iterative reconstruction technique DLP: 1569 mGy-cm. FINDINGS: There is no evidence of acute intracranial hemorrhage or territorial infarction. No abnormal mass effect or midline shift is seen. Noland to white matter differentiation is well preserved. No extra-axial fluid collections are identified. The ventricles are normal in size. There is no abnormal attenuation within the brain parenchyma. The osseous structures and soft tissues are normal. The mastoid air cells and visualized portions of the paranasal sinuses are well-aerated. Atlantooccipital alignment is maintained. The vertebral bodies and posterior elements align normally. No acute fracture or subluxation. Vertebral body heights are maintained. No significant degenerative changes are appreciated. No central canal or foraminal narrowing. The paraspinal soft tissues are unremarkable. The imaged lung apices are clear CT/CT head/brain wo con IMPRESSION: No acute intracranial pathology. No cervical spine fracture or malalignment.
--- NOTE | ~2022-02-04 | CT_ITS ---
EXAMINATION: CT HEAD WITHOUT CONTRAST CT CERVICAL SPINE WITHOUT CONTRAST CLINICAL INFORMATION: Fall COMPARISON: 03.28.2019. TECHNIQUE: Multidetector CT imaging of the head and cervical spine was performed without the use of intravenous contrast. Multiplanar reformats are reviewed. This CT examination was performed using dose optimization techniques as appropriate, variously including the following: *Automated exposure control *Adjustment of mA and/or kV according to patient size (this includes techniques or standardized protocols for targeted exams where dose is matched to indication/reason for exam; i.e. extremities or head) *Use of iterative reconstruction technique DLP: 1569 mGy-cm. FINDINGS: There is no evidence of acute intracranial hemorrhage or territorial infarction. No abnormal mass effect or midline shift is seen. Noland to white matter differentiation is well preserved. No extra-axial fluid collections are identified. The ventricles are normal in size. There is no abnormal attenuation within the brain parenchyma. The osseous structures and soft tissues are normal. The mastoid air cells and visualized portions of the paranasal sinuses are well-aerated. Atlantooccipital alignment is maintained. The vertebral bodies and posterior elements align normally. No acute fracture or subluxation. Vertebral body heights are maintained. No significant degenerative changes are appreciated. No central canal or foraminal narrowing. The paraspinal soft tissues are unremarkable. The imaged lung apices are clear CT/CT cervical spine wo con IMPRESSION: No acute intracranial pathology. No cervical spine fracture or malalignment.
--- NOTE | ~2022-02-04 | XR_ITS ---
EXAMINATION: XR CHEST CLINICAL INFORMATION: Dizziness and chest pain COMPARISON: 10.09.2019 TECHNIQUE: 2 views of the chest were obtained. FINDINGS: Normal symmetric lung volumes. Patchy opacity left lower lung. No pleural effusion. No pneumothorax. Cardiomediastinal silhouette and pulmonary vascularity are within normal limits. No acute osseous abnormalities. XR/XR chest 2V IMPRESSION: Patchy opacity left lower lung could represent subsegmental atelectasis or small infiltrate.
[2022-02-04 19:11] VITALS: BMI 37.4
--- NOTE | 2022-02-04 19:16 | ECG_ITS ---
Test Reason : CP Blood Pressure : / mmHG Vent. Rate : 083 BPM Atrial Rate : 083 BPM P-R Int : 186 ms QRS Dur : 082 ms QT Int : 388 ms P-R-T Axes : 064 053 063 degrees QTc Int : 455 ms Normal sinus rhythm Possible Left atrial enlargement Borderline ECG When compared with ECG of 05-OCT-2021 08:57, No significant change was found Referred By: Sheryl Chen Electronically Signed By:MAURI COLE
[2022-02-04 20:07] VITALS: BP 161/98; PULSE 82; RESP 18; TEMP 37.1; O2SAT 98
[2022-02-04 20:12] LABS: Appearance Urine CLEAR; Color Urine YELLOW; Glucose Urine UA NEG (NEG); Leukocyte Esterase Urine NEG (NEG); Nitrite Urine NEG (NEG); PH 5.5 (5.0-8.0); Specific Gravity - Urine <= 1.005 (1.005-1.025); Urine Blood NEG (NEG); Urine Ketones NEG (NEG); Urine Protein NEG (NEG-TRACE)
[2022-02-04 20:21] LABS: MANUAL DIFF FLAG NO
[2022-02-04 20:30] LABS: Basophils Percent Auto 0.5 % (0-2); Eosinophils Absolute Auto 0.4 X10*3/uL (0.0-0.4); Eosinophils Percent Auto 6.3 % (0-4); Hematocrit 36.1 % (37.0-47.0); Hemoglobin 11.9 g/dl (12.0-16.0); Imm Gran Abs Auto 0.01 X10*3/uL (0.00-0.03); Imm Gran Pct Auto 0.2 % (0.0-0.4); Lymphocytes Absolute Auto 1.4 X10*3/uL (1.2-4.9); Lymphocytes Percent Auto 23.1 % (20-40); Mean Corpuscular Hemoglobin 29.4 pg (27.0-33.0); Mean Corpuscular Volume 89.1 fL (80.0-98.0); Mean Platelet Volume 10.3 fL (9.4-12.3); Monocytes Absolute Auto 0.4 X10*3/uL (0.1-1.2); Monocytes Percent Auto 6.3 % (2-11); Neutrophils Percent Auto 63.6 % (45-73); Platelet Count 262 X10*3/uL (160-400); Red Blood Count 4.05 X10*6/uL (4.20-5.50); Red Cell Distribution Width 13.6 % (11.0-16.0); White Blood Count 6.2 X10*3/uL (4.8-10.8)
[2022-02-04 20:38] LABS: Amphetamine Screen Urine Not Detected (Not Detect); Barbiturates, Urine Not Detected (Not Detect); Benzodiazepines Screen Urine Not Detected (Not Detect); Cannabinoid Screen Urine Not Detected (Not Detect); Cocaine Screen Urine Not Detected (Not Detect); Fentanyl, urine Not Detected (Not Detect); Opiate Screen Urine Not Detected (Not Detect); Phencyclidine Screen Urine Not Detected (Not Detect)
[2022-02-04 20:39] LABS: Ethanol < 10 mg/dL
[2022-02-04 20:41] LABS: Alanine Aminotransferase 15 U/L (0-31); Albumin Level 4.1 g/dL (3.5-5.0); Alkaline Phosphatase 98 U/L (39-117); Anion Gap 11 (12-20); Aspartate Amino Transferase 16 U/L (5-31); Bilirubin Total 0.2 mg/dL (0.0-1.0); Blood Urea Nitrogen 6 mg/dL (9-16); Carbon Dioxide 23 mmol/L (22-29); Chloride 110 mmol/L (96-108); Creatinine Clr Calc Pharmacy 114.8; Estimated Glomerular Filt Rate > 60; Glucose Random 116 mg/dL (60-115); Lipase 16 U/L (8-78); Magnesium 1.8 mg/dL (1.6-2.6); Potassium 4.1 mmol/L (3.3-5.1); Sodium 140 mmol/L (135-145); Total Protein 6.7 g/dL (6.5-8.0)
[2022-02-04 20:48] LABS: HCG Quantitative < 2 mIU/mL
[2022-02-04 20:56] LABS: COVID-19 Test Negative (Negative)
[2022-02-04 21:03] LABS: Troponin-I High Sensitivity < 3.5 ng/L (<3.5-17.0)
--- NOTE | 2022-02-04 21:05 | ED.FALL ---
HPI - Fall General Chief Complaint: Psychiatric Symptoms Stated Complaint: FALL FROM CHAIR W/HEAD STRIKE PER EMS Time Seen by Provider: 02/04/22 19:16 Source: patient and EMS Mode of arrival: EMS Limitations: no limitations History of Present Illness HPI Narrative: 46-year-old female with a past medical history of PTSD, mood disorder, major depressive disorder, hyperlipidemia, GERD and type 2 diabetes presenting to the ED via EMS with complaints of a fall prior to arrival. She reports that she was on her chair and was leaning over forward and fell forward injuring her head. She denies loss of consciousness or prolonged down time. She denies any symptoms prior to the fall. She reports since she fell she has been having a headache. She reports over the past few days she has been having some dizziness, headaches and nausea and vomiting. She also reports some midsternal chest pain. She reports at the time of the fall she was not having any dizziness, headaches or chest pain. She denies any changes in vision, neck pain/stiffness, jaw pain, paresthesias, dyspnea on exertion, orthopnea, palpitations, loss of taste or smell, nasal congestion/rhinorrhea, sore throat, cough, abdominal pain, back pain, dysuria, hematuria, abnormal vaginal discharge, lower extremity edema or calf tenderness, recent travel or sick contacts, SI/HI/auditory visual sensation or thoughts of self injury. She reports that she is not here for psychiatric reasons that she does not understand why she was placed in the psychiatric Pod. complaint: fall Onset (ago): hour(s) (Prior to arrival) Fall from: chair Place fall occurred: home Loss of consciousness: none Prolonged down time: no Symptoms prior to fall: none Context: other (Leaning over forward) Location of injury: head Severity: mild Quality: aching Associated symptoms (after fall): headache Related Data Home Medications Medication Instructions Recorded Confirmed atorvastatin 10 mg tablet 1 tab PO DAILY 05/29/21 02/03/22 fluticasone propionate 110 2 puff INHALATION BID 05/29/21 02/03/22 mcg/actuation HFA aerosol inhaler (Flovent HFA) metformin 500 mg tablet 1 tab PO BID 05/29/21 02/03/22 montelukast 10 mg tablet 1 tab PO BEDTIME 05/29/21 02/03/22 pantoprazole 40 mg tablet,delayed 1 tab PO BID@0630,1630 05/29/21 02/03/22 release verapamil 240 mg tablet,extended 1 tab PO BEDTIME 05/29/21 02/03/22 release albuterol sulfate 90 mcg/actuation 2 puff INHALATION Q4H PRN 06/15/21 02/03/22 aerosol inhaler (Ventolin HFA) trazodone 150 mg tablet 150 mg PO BEDTIME PRN 11/05/21 02/03/22 clonazepam 0.5 mg tablet 0.5 mg PO BID PRN 11/11/21 02/03/22 lisinopril 5 mg tablet 1 tab PO DAILY 11/14/21 02/03/22 nicotine 21 mg/24 hr daily 1 patch TRANSDERMAL DAILY PRN 11/14/21 02/03/22 transdermal patch benztropine 1 mg tablet 1 mg PO BID 12/26/21 02/03/22 chlorpromazine 25 mg tablet 75 mg PO BID PRN 12/26/21 02/03/22 naproxen 500 mg tablet 1 tab PO BID 01/23/22 02/03/22 Previous Rx's Medication Instructions Recorded hydroxyzine HCl 50 mg tablet 50 mg PO QID PRN 30 Days #120 tab 07/27/21 fluoxetine 20 mg capsule 40 mg PO DAILY 30 Days #60 cap 09/29/21 mirtazapine 7.5 mg tablet 7.5 mg PO BEDTIME MRX1 30 Days #60 10/18/21 tab prazosin 1 mg capsule 4 mg PO BEDTIME 30 Days #120 cap 10/18/21 doxycycline monohydrate 100 mg 100 mg PO BID 10 Days #20 cap 02/04/22 capsule ondansetron 4 mg disintegrating 4 mg PO Q6-8H PRN #14 tab 02/04/22 tablet Allergies Allergy/AdvReac Type Severity Reaction Status Date / Time Fish Containing Products Allergy Severe ANAPHYLAXIS Verified 01/26/22 10:18 codeine [Codeine] Allergy Unknown RASH Verified 01/26/22 10:18 Penicillins Allergy Unknown RASH Verified 01/26/22 10:18 prednisone [Prednisone] Allergy Unknown RASH Verified 01/26/22 10:18 Sulfa (Sulfonamide Allergy Unknown RASH Verified 01/26/22 10:18 Antibiotics) [Sulfa (Sulfonamides)] azithromycin [AZITHROMYCIN] AdvReac Severe RASH Verified 01/26/22 10:18 nicotine AdvReac Unknown HEART Verified 01/26/22 10:18 PALPITATION TO NICOTINE GUM Seafood Allergy Severe ANAPHYLAXIS Uncoded 11/05/21 21:13 From Geodon Allergy Unknown DYSURIA, Uncoded 11/05/21 21:13 RASH Review of Systems Review of Systems: Constitutional : No Fever, No Chills ENT/Mouth : No Ear Pain, No Nasal Congestion, No sore throat Eyes: No Eye Pain, No Swelling, No Redness Cardiovascular : + Chest Pain, No SOB Respiratory : No Cough, No Sputum, No Dyspnea Gastrointestinal : No ingestions, + Nausea, + Vomiting, No Diarrhea, No Hematochezia, No Melena Genitourinary : No Dysuria, No Urinary Frequency, No Hematuria Musculoskeletal : No Myalgias Skin : No Skin Lesions, No rash Neuro : No Weakness, No Numbness, No Paresthesias, + Dizziness, + Headache Psych : No Anxiety, No Depression, No SI, No thoughts of self injury, No HI, No AVH, Heme/Lymph: No Lymphadenopathy Endocrine : No Polyuria, No Polydipsia Yes all other systems are reviewed and are negative [facility] Past Medical History Attestation statement: The following information was validated with the patient. Medical History Bronchitis Diabetes type 2, controlled GERD (gastroesophageal reflux disease) Hyperlipidemia MDD (major depressive disorder), recurrent episode, severe Mood disorder Overdose PTSD (post-traumatic stress disorder) Social History Social History 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: None 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 Other:: Patient lives in [facility]. 4 in total live in [facility]. Housing: Other Housing Other:: shelter Do you presently have visiting nurse or other home services: No (Medication administered by [facility] staff) Unable to assess alcohol history related to: Unknown Alcohol intake: never Patient Tobacco Use Status: Current everyday Tobacco user Tobacco use type: Cigarette Cigarette Packs Per Day: 1 Cigarettes Per Day: 20 Years Smoked: 20 e-Cigarette/Vaping Use: Never Used Second Hand Smoke Exposure: Yes Substance Use Type: Caffiene Advance Directives: No Advance Directives Information Provided: No Patient : No service: No Sexual orientation: Don't Know Physical Exam Vital Signs: Vital Signs: Last Vital Signs Temp 98.7 F 02/04/22 20:07 Pulse 82 02/04/22 20:07 Resp 18 02/04/22 20:07 BP 161/98 H 02/04/22 20:07 Pulse Ox 98 02/04/22 20:07 BMI result Body Mass Index 37.4 vital signs have been reviewed as normal and appeared to be correct. Blood pressure normal. Heart rate normal. Respiration rate normal. Temperature normal. Oxygen saturation normal. Appearance: Alert. Oriented X3. No acute distress. Head: Normal external exam. Normocephalic. Atraumatic. No Harper signs noted. No raccoon eyes noted Eyes: PERRLA. EOMI. Conjunctiva and sclera normal. Eyelids normal. ENT: EAC normal. TM's Normal. Pharynx normal. Uvula midline. Moist mucous membranes. No trismus noted. No drooling noted. No muffled voice noted. Neck: Normal inspection. Neck supple. FROM. No adenopathy. Thyroid Normal. No meningeal signs. No neck mass noted. CVS: Normal heart rate and rhythm. Heart sound normal. No murmurs noted. Pulses normal throughout. Respiratory: No respiratory distress. Painless inspiration. Breath sounds normal. No wheezes/rales/rhonchi noted. Chest nontender. No accessory muscle usage noted or decreased air movement noted. Abdomen: Soft and nontender. Bowel sounds normal in all 4 quadrants. No distention noted. No organomegaly noted. No visible injury noted. Back: No CVA tenderness. Full range of motion noted. Skin: Skin warm and dry. Normal skin color. Normal skin turgor. Patient has multiple old self injury hewitt to bilateral forearms no signs of infection no new self-injury hewitt noted. No additional rashes/lesions/lacerations noted. Extremities: No lower extremity edema. Extremities exhibit normal range of motion. Extremities nontender. Neuro: Oriented X 3. No motor deficit. No sensory deficit. Reflexes normal. CN's II-XII intact bilaterally? Psych: Appearance grossly normal, well-kept, mental status normal, speech and movement normal, speech clear, patient appears very sad and anxious along with depressed. Is cooperative. Normal thought process. Normal thought content. Normal good insight. Judgment good. Course Course Course Narrative: 19:16pm - 46-year-old female with a past medical history of PTSD, mood disorder, major depressive disorder, hyperlipidemia, GERD and type 2 diabetes presenting to the ED via EMS with complaints of a fall prior to arrival. She reports that she was on her chair and was leaning over forward and fell forward injuring her head. She denies loss of consciousness or prolonged down time. She denies any symptoms prior to the fall. She reports since she fell she has been having a headache. She reports over the past few days she has been having some dizziness, headaches and nausea and vomiting. She also reports some midsternal chest pain. She reports at the time of the fall she was not having any dizziness, headaches or chest pain. She denies any changes in vision, neck pain/stiffness, jaw pain, paresthesias, dyspnea on exertion, orthopnea, palpitations, loss of taste or smell, nasal congestion/rhinorrhea, sore throat, cough, abdominal pain, back pain, dysuria, hematuria, abnormal vaginal discharge, lower extremity edema or calf tenderness, recent travel or sick contacts, SI/HI/auditory visual sensation or thoughts of self injury. She reports that she is not here for psychiatric reasons that she does not understand why she was placed in the psychiatric Pod. Plan: Labs, CT scan of brain/cervical spine, chest x-ray, EKG, UA, COVID swab then re-evaluate. Reevaluation(s) Reevaluation #1: - labs reviewed patient with mild baseline anemia which is similar when compared to prior. Chloride 110. Anion gap 11. BUN 6. Random glucose 116. Otherwise all other labs are within normal limits. Serum quant negative for . Patient negative for EtOH. - CT scan of brain/cervical spine within normal limits no acute processes are noted - chest x-ray revealed patchy opacity left lower lung which could represent atelectasis versus small infiltrate. - awaiting EKG and will obtain a crisis evaluation due to patient usually here for crisis although she is denying any SI/HI/auditory visual hallucinations or thoughts of self-injury. - therefore at this time patient is placed in Physician observation because the patient needs more time to be evaluated by crisis. Time: 21:00 Reevaluation #2: - Care team evaluated patient and she continues to deny being here for anxiety/depression/SI/auditory visual sensation or thoughts of self-injury at our she just wants to go home at this point. I explained her that she possibly has a bronchitis versus pneumonia therefore will put her on antibiotics for a few days. Along with instructions return if any new or worsening symptoms to follow up with primary care provider. Patient understands agrees with this plan. Time: 21:36 - Fall Medical Records Attestation: I reviewed the patient's medical records. Lab Data Attestation: I reviewed the patient's lab results. Result diagrams: 02/04/22 20:16 02/04/22 20:16 Labs: Lab Results 02/04/22 02/04/22 02/04/22 Range/Units 19:54 19:54 19:54 WBC (4.8-10.8) X10*3/uL RBC (4.20-5.50) X10*6/uL Hgb (12.0-16.0) g/dl Hct (37.0-47.0) % MCV (80.0-98.0) fL MCH (27.0-33.0) pg MCHC (31.0-35.0) g/dl RDW (11.0-16.0) % Plt Count (160-400) X10*3/uL MPV (9.4-12.3) fL Immature Gran % (Auto) (0.0-0.4) % Neut % (Auto) (45-73) % Lymph % (Auto) (20-40) % Sutter % (Auto) (2-11) % Eos % (Auto) (0-4) % Baso % (Auto) (0-2) % Lymph # (Auto) (1.2-4.9) X10*3/uL Sutter # (Auto) (0.1-1.2) X10*3/uL Eos # (Auto) (0.0-0.4) X10*3/uL Baso # (Auto) (0.0-0.2) X10*3/uL Abs Immat Gran (auto) (0.00-0.03) X10*3/uL Absolute Neuts (auto) (2.0-8.3) x10*3/uL Absolute Nucleated RBC (0.0-0.012) X10*3/uL Nucleated RBC % (auto) (0.0-0.2) /100WBC Sodium (135-145) mmol/L Potassium (3.3-5.1) mmol/L Chloride (96-108) mmol/L Carbon Dioxide (22-29) mmol/L Anion Gap (12-20) BUN (9-16) mg/dL Creatinine (0.5-1.4) mg/dL Estim Creat Clear Calc Estimated GFR Random Glucose (60-115) mg/dL Calcium (8.4-10.2) mg/dL Magnesium (1.6-2.6) mg/dL Total Bilirubin (0.0-1.0) mg/dL AST (5-31) U/L ALT (0-31) U/L Alkaline Phosphatase (39-117) U/L Troponin I High Sens (<3.5-17.0) ng/L Total Protein (6.5-8.0) g/dL Albumin (3.5-5.0) g/dL Lipase (8-78) U/L Beta HCG, Quant mIU/mL Urine Color YELLOW Urine Appearance CLEAR Urine pH 5.5 (5.0-8.0) Ur Specific [place] <= 1.005 (1.005-1.025) Urine Protein NEG (NEG-TRACE) MG/DL Urine Glucose (UA) NEG (NEG) MG/DL Urine Ketones NEG (NEG) MG/DL Urine Blood NEG (NEG) Urine Nitrite NEG (NEG) Ur Leukocyte Esterase NEG (NEG) Urine Opiates Screen Not Detected (Not Detect) Urine Fentanyl Screen Not Detected (Not Detect) Ur Barbiturates Screen Not Detected (Not Detect) Ur Phencyclidine Scrn Not Detected (Not Detect) Ur Amphetamines Screen Not Detected (Not Detect) U Benzodiazepines Scrn Not Detected (Not Detect) Urine Cocaine Screen Not Detected (Not Detect) U Marijuana (THC) Screen Not Detected (Not Detect) Ethyl Alcohol mg/dL COVID-19 (NICK) Negative (Negative) COVID-19 Clin Com See Note 02/04/22 02/04/22 02/04/22 Range/Units 20:16 20:16 20:16 WBC 6.2 (4.8-10.8) X10*3/uL RBC 4.05 L (4.20-5.50) X10*6/uL Hgb 11.9 L (12.0-16.0) g/dl Hct 36.1 L (37.0-47.0) % MCV 89.1 (80.0-98.0) fL MCH 29.4 (27.0-33.0) pg MCHC 33.0 (31.0-35.0) g/dl RDW 13.6 (11.0-16.0) % Plt Count 262 D (160-400) X10*3/uL MPV 10.3 (9.4-12.3) fL Immature Gran % (Auto) 0.2 (0.0-0.4) % Neut % (Auto) 63.6 (45-73) % Lymph % (Auto) 23.1 (20-40) % Sutter % (Auto) 6.3 (2-11) % Eos % (Auto) 6.3 H (0-4) % Baso % (Auto) 0.5 (0-2) % Lymph # (Auto) 1.4 (1.2-4.9) X10*3/uL Sutter # (Auto) 0.4 (0.1-1.2) X10*3/uL Eos # (Auto) 0.4 (0.0-0.4) X10*3/uL Baso # (Auto) 0.0 (0.0-0.2) X10*3/uL Abs Immat Gran (auto) 0.01 (0.00-0.03) X10*3/uL Absolute Neuts (auto) 4.0 (2.0-8.3) x10*3/uL Absolute Nucleated RBC 0.000 (0.0-0.012) X10*3/uL Nucleated RBC % (auto) 0.0 (0.0-0.2) /100WBC Sodium 140 (135-145) mmol/L Potassium 4.1 D (3.3-5.1) mmol/L Chloride 110 H (96-108) mmol/L Carbon Dioxide 23 (22-29) mmol/L Anion Gap 11 L (12-20) BUN 6 L (9-16) mg/dL Creatinine 0.74 (0.5-1.4) mg/dL Estim Creat Clear Calc 114.8 Estimated GFR > 60 Random Glucose 116 H (60-115) mg/dL Calcium 9.0 (8.4-10.2) mg/dL Magnesium 1.8 (1.6-2.6) mg/dL Total Bilirubin 0.2 (0.0-1.0) mg/dL AST 16 (5-31) U/L ALT 15 (0-31) U/L Alkaline Phosphatase 98 (39-117) U/L Troponin I High Sens (<3.5-17.0) ng/L Total Protein 6.7 (6.5-8.0) g/dL Albumin 4.1 (3.5-5.0) g/dL Lipase 16 (8-78) U/L Beta HCG, Quant < 2 mIU/mL Urine Color Urine Appearance Urine pH (5.0-8.0) Ur Specific [place] (1.005-1.025) Urine Protein (NEG-TRACE) MG/DL Urine Glucose (UA) (NEG) MG/DL Urine Ketones (NEG) MG/DL Urine Blood (NEG) Urine Nitrite (NEG) Ur Leukocyte Esterase (NEG) Urine Opiates Screen (Not Detect) Urine Fentanyl Screen (Not Detect) Ur Barbiturates Screen (Not Detect) Ur Phencyclidine Scrn (Not Detect) Ur Amphetamines Screen (Not Detect) U Benzodiazepines Scrn (Not Detect) Urine Cocaine Screen (Not Detect) U Marijuana (THC) Screen (Not Detect) Ethyl Alcohol < 10 mg/dL COVID-19 (NICK) (Negative) COVID-19 Clin Com 02/04/22 Range/Units 20:16 WBC (4.8-10.8) X10*3/uL RBC (4.20-5.50) X10*6/uL Hgb (12.0-16.0) g/dl Hct (37.0-47.0) % MCV (80.0-98.0) fL MCH (27.0-33.0) pg MCHC (31.0-35.0) g/dl RDW (11.0-16.0) % Plt Count (160-400) X10*3/uL MPV (9.4-12.3) fL Immature Gran % (Auto) (0.0-0.4) % Neut % (Auto) (45-73) % Lymph % (Auto) (20-40) % Sutter % (Auto) (2-11) % Eos % (Auto) (0-4) % Baso % (Auto) (0-2) % Lymph # (Auto) (1.2-4.9) X10*3/uL Sutter # (Auto) (0.1-1.2) X10*3/uL Eos # (Auto) (0.0-0.4) X10*3/uL Baso # (Auto) (0.0-0.2) X10*3/uL Abs Immat Gran (auto) (0.00-0.03) X10*3/uL Absolute Neuts (auto) (2.0-8.3) x10*3/uL Absolute Nucleated RBC (0.0-0.012) X10*3/uL Nucleated RBC % (auto) (0.0-0.2) /100WBC Sodium (135-145) mmol/L Potassium (3.3-5.1) mmol/L Chloride (96-108) mmol/L Carbon Dioxide (22-29) mmol/L Anion Gap (12-20) BUN (9-16) mg/dL Creatinine (0.5-1.4) mg/dL Estim Creat Clear Calc Estimated GFR Random Glucose (60-115) mg/dL Calcium (8.4-10.2) mg/dL Magnesium (1.6-2.6) mg/dL Total Bilirubin (0.0-1.0) mg/dL AST (5-31) U/L ALT (0-31) U/L Alkaline Phosphatase (39-117) U/L Troponin I High Sens < 3.5 (<3.5-17.0) ng/L Total Protein (6.5-8.0) g/dL Albumin (3.5-5.0) g/dL Lipase (8-78) U/L Beta HCG, Quant mIU/mL Urine Color Urine Appearance Urine pH (5.0-8.0) Ur Specific [place] (1.005-1.025) Urine Protein (NEG-TRACE) MG/DL Urine Glucose (UA) (NEG) MG/DL Urine Ketones (NEG) MG/DL Urine Blood (NEG) Urine Nitrite (NEG) Ur Leukocyte Esterase (NEG) Urine Opiates Screen (Not Detect) Urine Fentanyl Screen (Not Detect) Ur Barbiturates Screen (Not Detect) Ur Phencyclidine Scrn (Not Detect) Ur Amphetamines Screen (Not Detect) U Benzodiazepines Scrn (Not Detect) Urine Cocaine Screen (Not Detect) U Marijuana (THC) Screen (Not Detect) Ethyl Alcohol mg/dL COVID-19 (NICK) (Negative) COVID-19 Clin Com Imaging Data Chest x-ray: Attestation: I personally reviewed and interpreted this imaging study as follows: Radiologist's impression: FINDINGS: Normal symmetric lung volumes. Patchy opacity left lower lung. No pleural effusion. No pneumothorax.? Cardiomediastinal silhouette and pulmonary vascularity are within normal limits. No acute osseous abnormalities. XR/XR chest 2V IMPRESSION: Patchy opacity left lower lung could represent subsegmental atelectasis or small infiltrate. CT scan of brain/cervical spine without contrast: Attestation: I personally reviewed and interpreted this imaging study as follows: Radiologist's impression: FINDINGS: There is no evidence of acute intracranial hemorrhage or territorial infarction. No abnormal mass effect or midline shift is seen. Noland to white matter differentiation is well preserved. No extra-axial fluid collections are identified. The ventricles are normal in size. There is no abnormal attenuation within the brain parenchyma. The osseous structures and soft tissues are normal. The mastoid air cells and visualized portions of the paranasal sinuses are well-aerated. Atlantooccipital alignment is maintained. The vertebral bodies and posterior elements align normally. No acute fracture or subluxation. Vertebral body heights are maintained. No significant degenerative changes are appreciated. No central canal or foraminal narrowing. The paraspinal soft tissues are unremarkable. The imaged lung apices are clear ? CT/CT cervical spine wo con IMPRESSION: No acute intracranial pathology. No cervical spine fracture or malalignment. Discharge Plan Discharge Clinical Impression: Fall, Head injury, Chest pain, Nausea & vomiting, Pneumonia Patient Disposition: Home, Self-Care Instructions: Pneumonia (ED) Prescriptions: New doxycycline monohydrate 100 mg capsule 100 mg PO BID 10 Days Qty: 20 0RF ondansetron 4 mg tablet,disintegrating 4 mg PO Q6-8H PRN (Reason: nausea and vomiting) Qty: 14 0RF No Action metformin 500 mg tablet 1 tab PO BID 0RF atorvastatin 10 mg tablet 1 tab PO DAILY 0RF pantoprazole 40 mg tablet,delayed release (DR/EC) 1 tab PO BID@0630,1630 0RF verapamil 240 mg tablet extended release 1 tab PO BEDTIME 0RF montelukast 10 mg tablet 1 tab PO BEDTIME 0RF Flovent HFA 110 mcg/actuation HFA aerosol inhaler 2 puff inhalation BID 0RF albuterol sulfate [Ventolin HFA] 90 mcg/actuation HFA aerosol inhaler 2 puff inhalation Q4H PRN (Reason: Shortness Of Breath) 0RF trazodone 150 mg tablet 150 mg PO BEDTIME PRN (Reason: insomnia) 0RF clonazepam 0.5 mg tablet 0.5 mg PO BID PRN (Reason: anxiety/AH) 0RF Rx Instructions: may take within 1 hour of each other; max dose 1mg daily benztropine 1 mg tablet 1 mg PO BID 0RF chlorpromazine 25 mg tablet 75 mg PO BID PRN (Reason: agitation) 0RF naproxen 500 mg tablet 1 tab PO BID 0RF hydroxyzine HCl 50 mg Tablet 50 mg PO QID PRN (Reason: Anxiety) 30 Days Qty: 120 0RF fluoxetine 20 mg Capsule 40 mg PO DAILY 30 Days Qty: 60 0RF prazosin 1 mg Capsule 4 mg PO BEDTIME 30 Days Qty: 120 0RF Protocol: Hold for SBP< HOLD for SBP < : 90 mirtazapine 7.5 mg Tablet 7.5 mg PO BEDTIME MRX1 30 Days Qty: 60 0RF lisinopril 5 mg tablet 1 tab PO DAILY 0RF nicotine 21 mg/24 hr Patch 24 Hour 1 patch TRANSDERMAL DAILY PRN (Reason: Nicotine Cravings) 0RF Referrals: Maribel Marquez NP [Primary Care Provider] - Print Language: Slovak
--- NOTE | 2022-02-04 21:33 | MHC.CARE ---
CARE Team met with pt for a risk assessment. Pt denies being here for psychiatric complaints. She denies SI//HI. She reports that she can keep herself safe and that she wants to go home. CARE Team recommends that pt be discharged back to her longterm.
== END 2022-02-04 22:07 | disposition home or self-care (01) ==
PROVIDERS: Physician Assistant Medical; Emergency Provider Emergency Medicine Emergency Medical Services; PCP Nurse Practitioner Family
DX: F33.1 Major depressive disorder, recurrent, moderate (principal); J18.9 Pneumonia, unspecified organism; M54.2 Cervicalgia; R51.9 Headache, unspecified; R07.89 Other chest pain; F17.210 Nicotine dependence, cigarettes, uncomplicated; Z71.6 Tobacco abuse counseling; Z20.822 Contact with and (suspected) exposure to COVID-19; Z79.899 Other long term (current) drug therapy
CPT/HCPCS: 36415; 70450; 71046; 72125; 80053; 80307; 81003; 82077; 83690; 83735; 84484; 84702; 85025; 87635; 93005; 99283; 99284

== ENCOUNTER 2022-02-07 17:09 | Emergency (ER) | payer MEDICARE, MEDICAID, SELFPAY ==
--- NOTE | ~2022-02-07 | XR_ITS ---
EXAMINATION: CHEST AND KUB CLINICAL INFORMATION: Left-sided flank pain, pneumonia COMPARISON: Chest radiograph 02/04/2022 TECHNIQUE: 2 views chest, single supine view abdomen FINDINGS: Previously seen left-sided infiltrate/atelectasis is no longer convincingly present. At this time, no significant abnormality is seen involving the heart, lungs, mediastinum or bony thorax. The bowel gas pattern is unremarkable. Gas and stool seen throughout the colon. No evidence of bowel obstruction. No abnormal calcifications are seen. XR/XR KUB IMPRESSION: Negative exams. No pneumonia seen and a cause for the patient's left flank pain is not identified.
--- NOTE | ~2022-02-07 | XR_ITS ---
EXAMINATION: CHEST AND KUB CLINICAL INFORMATION: Left-sided flank pain, pneumonia COMPARISON: Chest radiograph 02/04/2022 TECHNIQUE: 2 views chest, single supine view abdomen FINDINGS: Previously seen left-sided infiltrate/atelectasis is no longer convincingly present. At this time, no significant abnormality is seen involving the heart, lungs, mediastinum or bony thorax. The bowel gas pattern is unremarkable. Gas and stool seen throughout the colon. No evidence of bowel obstruction. No abnormal calcifications are seen. XR/XR chest 2V IMPRESSION: Negative exams. No pneumonia seen and a cause for the patient's left flank pain is not identified.
--- NOTE | 2022-02-07 17:12 | ED.PSYCH ---
HPI - Psych General Chief Complaint: Psychiatric Symptoms Stated Complaint: SI Source: patient and EMS Mode of arrival: EMS Limitations: no limitations History of Present Illness HPI Narrative: 46-year-old female well known to this facility presents from a long-term via EMS for suicidal ideation. MD complaint: suicidal ideation, feels depressed and anxiety Onset (ago): year(s) Duration: constant History of same: Yes Relieving factors: none Exacerbating factors: none Associated psychiatric symptoms: depression, suicidal ideation, racing thoughts and auditory hallucinations Associated symptoms: denies other symptoms Treatments prior to arrival: none If self harm: admits thoughts of self harm Related Data Home Medications Medication Instructions Recorded Confirmed atorvastatin 10 mg tablet 1 tab PO DAILY 05/29/21 02/07/22 fluticasone propionate 110 2 puff INHALATION BID 05/29/21 02/07/22 mcg/actuation HFA aerosol inhaler (Flovent HFA) metformin 500 mg tablet 1 tab PO BID 05/29/21 02/07/22 montelukast 10 mg tablet 1 tab PO BEDTIME 05/29/21 02/07/22 pantoprazole 40 mg tablet,delayed 1 tab PO BID@0630,1630 05/29/21 02/07/22 release verapamil 240 mg tablet,extended 1 tab PO BEDTIME 05/29/21 02/03/22 release albuterol sulfate 90 mcg/actuation 2 puff INHALATION Q4H PRN 06/15/21 02/07/22 aerosol inhaler (Ventolin HFA) trazodone 150 mg tablet 150 mg PO BEDTIME PRN 11/05/21 02/07/22 clonazepam 0.5 mg tablet 0.5 mg PO BID PRN 11/11/21 02/07/22 lisinopril 5 mg tablet 1 tab PO DAILY 11/14/21 02/07/22 nicotine 21 mg/24 hr daily 1 patch TRANSDERMAL DAILY PRN 11/14/21 02/07/22 transdermal patch benztropine 1 mg tablet 1 mg PO BID 12/26/21 02/07/22 chlorpromazine 25 mg tablet 75 mg PO BID PRN 12/26/21 02/07/22 naproxen 500 mg tablet 1 tab PO BID 01/23/22 02/03/22 cephalexin 500 mg capsule 1 cap PO TID 02/07/22 02/07/22 Previous Rx's Medication Instructions Recorded hydroxyzine HCl 50 mg tablet 50 mg PO QID PRN 30 Days #120 tab 07/27/21 fluoxetine 20 mg capsule 40 mg PO DAILY 30 Days #60 cap 09/29/21 mirtazapine 7.5 mg tablet 7.5 mg PO BEDTIME MRX1 30 Days #60 10/18/21 tab prazosin 1 mg capsule 4 mg PO BEDTIME 30 Days #120 cap 10/18/21 doxycycline monohydrate 100 mg 100 mg PO BID 10 Days #20 cap 02/04/22 capsule ondansetron 4 mg disintegrating 4 mg PO Q6-8H PRN #14 tab 02/04/22 tablet docusate sodium 100 mg capsule 100 mg PO BID #60 cap 02/07/22 (Colace) Allergies Allergy/AdvReac Type Severity Reaction Status Date / Time Fish Containing Products Allergy Severe ANAPHYLAXIS Verified 01/26/22 10:18 codeine [Codeine] Allergy Unknown RASH Verified 01/26/22 10:18 Penicillins Allergy Unknown RASH Verified 01/26/22 10:18 prednisone [Prednisone] Allergy Unknown RASH Verified 01/26/22 10:18 Sulfa (Sulfonamide Allergy Unknown RASH Verified 01/26/22 10:18 Antibiotics) [Sulfa (Sulfonamides)] azithromycin [AZITHROMYCIN] AdvReac Severe RASH Verified 01/26/22 10:18 nicotine AdvReac Unknown HEART Verified 01/26/22 10:18 PALPITATION TO NICOTINE GUM Seafood Allergy Severe ANAPHYLAXIS Uncoded 11/05/21 21:13 From [place]odon Allergy Unknown DYSURIA, Uncoded 11/05/21 21:13 RASH Review of Systems Review of Systems: Constitutional: No Fever, No Chills ENT/Mouth: No Ear Pain, No Nasal Congestion, No sore throat Eyes: No Eye Pain, No Swelling, No Redness Cardiovascular: No Chest Pain, No SOB Respiratory: No Cough, No Sputum, No Dyspnea Gastrointestinal: No Nausea, No Vomiting, No Diarrhea, No Hematochezia, No Melena Genitourinary: No Dysuria, No Urinary Frequency, No Hematuria Musculoskeletal: No Myalgias Skin: No Skin Lesions, No rash Neuro: No Weakness, No Numbness, No Paresthesias, No Dizziness, No Headache Psych: positive Anxiety, positive Depression, positive SI Heme/Lymph: No Lymphadenopathy Endocrine: No Polyuria, No Polydipsia Yes all other systems are reviewed and are negative [facility] Past Medical History Attestation statement: The following information was validated with the patient. Source: old records reviewed Medical History Bronchitis Diabetes type 2, controlled GERD (gastroesophageal reflux disease) Hyperlipidemia MDD (major depressive disorder), recurrent episode, severe Mood disorder Overdose PTSD (post-traumatic stress disorder) Social History Social History 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: None 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 Other:: Patient lives in long-term. 4 in total live in long-term. Housing: Other Housing Other:: shelter Do you presently have visiting nurse or other home services: No (Medication administered by long-term staff) Unable to assess alcohol history related to: Unknown Alcohol intake: never Patient Tobacco Use Status: Current everyday Tobacco user Tobacco use type: Cigarette Cigarette Packs Per Day: 1 Cigarettes Per Day: 20 Years Smoked: 20 e-Cigarette/Vaping Use: Never Used Second Hand Smoke Exposure: Yes Substance Use Type: Caffiene Advance Directives: No Advance Directives Information Provided: No Patient : No service: No Sexual orientation: Don't Know Physical Exam Vital Signs: Vital Signs: Last Vital Signs Temp 99 F 02/07/22 17:48 Pulse 100 02/07/22 17:48 Resp 18 02/07/22 17:48 BP 150/100 H 02/07/22 17:48 Pulse Ox 94 02/07/22 17:48 BMI result Body Mass Index 44.8 Appearance: Alert. Oriented X3. No acute distress. Eyes: Pupils equal, round and reactive to light. EOMI. Sclera nonicteric. ENT: Pharynx normal. Neck: Normal inspection. Neck supple. CVS: Normal heart rate and rhythm. Pulses normal. Respiratory: No respiratory distress. Breath sounds normal. Abdomen: Soft and nontender. Skin: Skin warm and dry. Normal skin color. Normal skin turgor. Extremities: Gait well-balanced well coordinated. Multiple superficial self-inflicted wounds In various stages of healing. Neuro: No motor deficit. No sensory deficit. Cranial nerves 2-12 intact. Course Course Course Narrative: 46-year-old female well known to this facility presents via EMS for suicidal ideation. There is a care plan in place. Order for crisis consult in place. Patient was treated here approximately 3 days ago for pneumonia and is on antibiotics. Is currently taking her medications as prescribed. 19:00 patient cleared by N, chest and KUB x-rays are negative for acute findings. No pneumonia noted. Will discharge home. MDM - Psych Differential Diagnosis Differential diagnosis: Likely suicidal ideation, depression and acute anxiety Medical Records Attestation: I reviewed the patient's medical records. Lab Data Attestation: I reviewed the patient's lab results. Labs: Lab Results 02/07/22 02/07/22 02/07/22 Range/Units 18:26 18:26 18:27 Urine Color YELLOW Urine Appearance CLEAR Urine pH 6.0 (5.0-8.0) Ur Specific [place] <= 1.005 (1.005-1.025) Urine Protein NEG (NEG-TRACE) MG/DL Urine Glucose (UA) NEG (NEG) MG/DL Urine Ketones NEG (NEG) MG/DL Urine Blood 3+ H (NEG) Urine Nitrite NEG (NEG) Ur Leukocyte Esterase TRACE H (NEG) Urine RBC 0-2 (0) /HPF Urine WBC 0-2 (0-4) /HPF Ur Squamous Epith Cells TRACE /LPF Urine Bacteria NONE /LPF Urine Opiates Screen Not Detected (Not Detect) Urine Fentanyl Screen Not Detected (Not Detect) Ur Barbiturates Screen Not Detected (Not Detect) Ur Phencyclidine Scrn Not Detected (Not Detect) Ur Amphetamines Screen Not Detected (Not Detect) U Benzodiazepines Scrn Not Detected (Not Detect) Urine Cocaine Screen Not Detected (Not Detect) U Marijuana (THC) Screen Not Detected (Not Detect) COVID-19 (NICK) Negative (Negative) COVID-19 Clin Com See Note Imaging Data Chest x-ray, KUB: Attestation: I personally reviewed and interpreted this imaging study as follows: Radiologist's impression: EXAMINATION: CHEST AND KUB CLINICAL INFORMATION: Left-sided flank pain, pneumonia? COMPARISON: Chest radiograph 02/04/2022? TECHNIQUE: 2 views chest, single supine view abdomen? FINDINGS: Previously seen left-sided infiltrate/atelectasis is no longer convincingly present. At this time, no significant abnormality is seen involving the heart, lungs, mediastinum or bony thorax. The bowel gas pattern is unremarkable. Gas and stool seen throughout the colon. No evidence of bowel obstruction. No abnormal calcifications are seen.? XR/XR chest 2V IMPRESSION: Negative exams. No pneumonia seen and a cause for the patient's left flank pain is not identified.? Discharge Plan Discharge Clinical Impression: Borderline personality disorder, Bipolar disorder, Constipation Patient Disposition: Home, Self-Care Instructions: Constipation (ED), Borderline Personality Disorder (DC), Nonsuicidal Self-Injury (ED) Additional Instructions: Follow-up with outpatient psychiatry as scheduled. Continue all medications as prescribed. Use Colace twice daily for constipation. Thank you for choosing this emergency department for evaluation. Please follow-up with primary care physician as needed. Return to the emergency department for any new, concerning, or worsening symptoms. Prescriptions: New docusate sodium [Colace] 100 mg capsule 100 mg PO BID Qty: 60 0RF No Action metformin 500 mg tablet 1 tab PO BID 0RF atorvastatin 10 mg tablet 1 tab PO DAILY 0RF pantoprazole 40 mg tablet,delayed release (DR/EC) 1 tab PO BID@0630,1630 0RF verapamil 240 mg tablet extended release 1 tab PO BEDTIME 0RF montelukast 10 mg tablet 1 tab PO BEDTIME 0RF Flovent HFA 110 mcg/actuation HFA aerosol inhaler 2 puff inhalation BID 0RF albuterol sulfate [Ventolin HFA] 90 mcg/actuation HFA aerosol inhaler 2 puff inhalation Q4H PRN (Reason: Shortness Of Breath) 0RF trazodone 150 mg tablet 150 mg PO BEDTIME PRN (Reason: insomnia) 0RF clonazepam 0.5 mg tablet 0.5 mg PO BID PRN (Reason: anxiety/AH) 0RF Rx Instructions: may take within 1 hour of each other; max dose 1mg daily benztropine 1 mg tablet 1 mg PO BID 0RF chlorpromazine 25 mg tablet 75 mg PO BID PRN (Reason: agitation) 0RF naproxen 500 mg tablet 1 tab PO BID 0RF cephalexin 500 mg capsule 1 cap PO TID 0RF hydroxyzine HCl 50 mg Tablet 50 mg PO QID PRN (Reason: Anxiety) 30 Days Qty: 120 0RF fluoxetine 20 mg Capsule 40 mg PO DAILY 30 Days Qty: 60 0RF prazosin 1 mg Capsule 4 mg PO BEDTIME 30 Days Qty: 120 0RF Protocol: Hold for SBP< HOLD for SBP < : 90 mirtazapine 7.5 mg Tablet 7.5 mg PO BEDTIME MRX1 30 Days Qty: 60 0RF lisinopril 5 mg tablet 1 tab PO DAILY 0RF nicotine 21 mg/24 hr Patch 24 Hour 1 patch TRANSDERMAL DAILY PRN (Reason: Nicotine Cravings) 0RF doxycycline monohydrate 100 mg capsule 100 mg PO BID 10 Days Qty: 20 0RF ondansetron 4 mg tablet,disintegrating 4 mg PO Q6-8H PRN (Reason: nausea and vomiting) Qty: 14 0RF Interventions: ED Discharge Assessment Last Done: 02/07/22 19:35 Discharge Date/Time: 02/07/22 19:59
[2022-02-07 17:48] VITALS: BP 144/90; BP 150/100; PULSE 100; PULSE 105; RESP 18; TEMP 37.2; O2SAT 94; BMI 44.8
[2022-02-07] MEDS: Ondansetron ODT 4 MG TAB.RAPDIS TRANSLINGU (18:09)
[2022-02-07] MEDS: chlorproMAZINE HCl 25 MG TABLET 75 MG PO (18:09)
[2022-02-07 18:45] LABS: Appearance Urine CLEAR; Color Urine YELLOW; Glucose Urine UA NEG (NEG); Leukocyte Esterase Urine TRACE (NEG); Nitrite Urine NEG (NEG); Specific Gravity - Urine <= 1.005 (1.005-1.025); UACC Culture Trigger NO; Urine Blood 3+ (NEG); Urine Ketones NEG (NEG); Urine Protein NEG (NEG-TRACE)
[2022-02-07 19:01] LABS: Amphetamine Screen Urine Not Detected (Not Detect); Barbiturates, Urine Not Detected (Not Detect); Benzodiazepines Screen Urine Not Detected (Not Detect); Cannabinoid Screen Urine Not Detected (Not Detect); Cocaine Screen Urine Not Detected (Not Detect); Fentanyl, urine Not Detected (Not Detect); Opiate Screen Urine Not Detected (Not Detect); Phencyclidine Screen Urine Not Detected (Not Detect)
[2022-02-07 19:02] LABS: COVID-19 Test Negative (Negative); IDNOW Serial# 55D5AD1C
[2022-02-07 19:04] LABS: RBC Urine 0-2 /HPF (0); Squamous Epithelial Cell Urine TRACE /LPF; WBC Urine 0-2 /HPF (0-4)
--- NOTE | 2022-02-07 20:23 | MHC.CARE ---
Pt met with the CARE team. Pt reports she is anxious due to complicated relationship with a peer at her long-term. Pt is denying SI and AH appear at baseline at this time. Pt did not engage in superficial cutting today. Pt is calm and cooperative and awaiting a lyft at this time.
== END 2022-02-07 19:59 | disposition home or self-care (01) ==
PROVIDERS: Nurse Practitioner Family; Emergency Provider Emergency Medicine
DX: F31.9 Bipolar disorder, unspecified (principal); F60.3 Borderline personality disorder; K59.00 Constipation, unspecified; R10.9 Unspecified abdominal pain; E11.9 Type 2 diabetes mellitus without complications; Z79.899 Other long term (current) drug therapy; Z20.822 Contact with and (suspected) exposure to COVID-19
CPT/HCPCS: 71046; 74018; 80307; 81001; 87635; 99283

== ENCOUNTER 2022-02-09 15:49 | Inpatient (IN) | payer MEDICARE, MEDICAID, SELFPAY ==
[2022-02-09] VITALS (7 sets, daily range): BP systolic 102–157; BP diastolic 58–99; PULSE 70–118; RESP 11–34; TEMP 36.3–36.6; O2SAT 93–99; BMI 38.1
--- NOTE | ~2022-02-09 | XR_ITS ---
EXAMINATION: XR CHEST CLINICAL INFORMATION: Overdose COMPARISON: Chest x-ray 02/07/2022 TECHNIQUE: Frontal view of the chest was obtained. FINDINGS: Cardiac silhouette is normal in size. The lungs are well aerated. There is no lobar consolidation. No pleural effusion or pneumothorax. No gross osseous abnormality. XR/XR chest 1V IMPRESSION: No acute pulmonary pathology.
--- NOTE | 2022-02-09 15:52 | ED.OVERDOSE ---
HPI - Overdose General Chief Complaint: Overdose Stated Complaint: CRISIS,OVERDOSE Source: patient and EMS Mode of arrival: EMS Limitations: no limitations History of Present Illness HPI Narrative: 46-year-old female presents via EMS for Tylenol overdose. Suspected ingestion of over 4000 mg. MD complaint: intentional overdose Onset (ago): hour(s) (Within our arrival) Intent: suicide attempt Associated symptoms: depression Treatments Prior to Arrival: none Related Data Home Medications Medication Instructions Recorded Confirmed atorvastatin 10 mg tablet 1 tab PO DAILY 05/29/21 02/09/22 fluticasone propionate 110 2 puff INHALATION BID 05/29/21 02/09/22 mcg/actuation HFA aerosol inhaler (Flovent HFA) metformin 500 mg tablet 1 tab PO BID 05/29/21 02/09/22 montelukast 10 mg tablet 1 tab PO BEDTIME 05/29/21 02/09/22 verapamil 240 mg tablet,extended 1 tab PO BEDTIME 05/29/21 02/09/22 release albuterol sulfate 90 mcg/actuation 2 puff INHALATION Q4H PRN 06/15/21 02/09/22 aerosol inhaler (Ventolin HFA) trazodone 150 mg tablet 150 mg PO BEDTIME PRN 11/05/21 02/09/22 lisinopril 5 mg tablet 1 tab PO DAILY 11/14/21 02/09/22 benztropine 1 mg tablet 1 mg PO BID 12/26/21 02/09/22 naproxen 500 mg tablet 1 tab PO BID 01/23/22 02/09/22 Previous Rx's Medication Instructions Recorded fluoxetine 20 mg capsule 40 mg PO DAILY 30 Days #60 cap 09/29/21 mirtazapine 7.5 mg tablet 7.5 mg PO BEDTIME MRX1 30 Days #60 10/18/21 tab prazosin 1 mg capsule 4 mg PO BEDTIME 30 Days #120 cap 10/18/21 doxycycline monohydrate 100 mg 100 mg PO BID 10 Days #20 cap 02/04/22 capsule ondansetron 4 mg disintegrating 4 mg PO Q6-8H PRN #14 tab 02/04/22 tablet docusate sodium 100 mg capsule 100 mg PO BID #60 cap 02/07/22 (Colace) Allergies Allergy/AdvReac Type Severity Reaction Status Date / Time Fish Containing Products Allergy Severe ANAPHYLAXIS Verified 01/26/22 10:18 codeine [Codeine] Allergy Unknown RASH Verified 01/26/22 10:18 Penicillins Allergy Unknown RASH Verified 01/26/22 10:18 prednisone [Prednisone] Allergy Unknown RASH Verified 01/26/22 10:18 Sulfa (Sulfonamide Allergy Unknown RASH Verified 01/26/22 10:18 Antibiotics) [Sulfa (Sulfonamides)] azithromycin [AZITHROMYCIN] AdvReac Severe RASH Verified 01/26/22 10:18 nicotine AdvReac Unknown HEART Verified 01/26/22 10:18 PALPITATION TO NICOTINE GUM Seafood Allergy Severe ANAPHYLAXIS Uncoded 11/05/21 21:13 From [place]odon Allergy Unknown DYSURIA, Uncoded 11/05/21 21:13 RASH Review of Systems Review of Systems: Constitutional: No Fever, No Chills ENT/Mouth: No Ear Pain, No Nasal Congestion, No sore throat Eyes: No Eye Pain, No Swelling, No Redness Cardiovascular: No Chest Pain, No SOB Respiratory: No Cough, No Sputum, No Dyspnea Gastrointestinal: No Nausea, No Vomiting, No Diarrhea, No Hematochezia, No Melena Genitourinary: No Dysuria, No Urinary Frequency, No Hematuria Musculoskeletal: No Myalgias Skin: No Skin Lesions, No rash Neuro: No Weakness, No Numbness, No Paresthesias, No Dizziness, No Headache Psych: positive Anxiety, positive Depression, positive SI, positive intentional Tylenol overdose Heme/Lymph: No Lymphadenopathy Endocrine: No Polyuria, No Polydipsia Yes all other systems are reviewed and are negative PMFSH Past Medical History Attestation statement: The following information was validated with the patient. Source: old records reviewed Medical History Bronchitis Diabetes type 2, controlled GERD (gastroesophageal reflux disease) Hyperlipidemia MDD (major depressive disorder), recurrent episode, severe Mood disorder Overdose PTSD (post-traumatic stress disorder) Social History Social History 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: None 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 Other:: Patient lives in intermediate. 4 in total live in intermediate. Housing: Other Housing Other:: custodial Do you presently have visiting nurse or other home services: No (Medication administered by intermediate staff) Unable to assess alcohol history related to: Unknown Alcohol intake: never Patient Tobacco Use Status: Current everyday Tobacco user Tobacco use type: Cigarette Cigarette Packs Per Day: 1 Cigarettes Per Day: 20 Years Smoked: 20 Smoked in Last 30 Days: Yes e-Cigarette/Vaping Use: Never Used Second Hand Smoke Exposure: Yes Use of substances other than those prescribed or required for medical reasons: No Substance Use Type: Caffiene Advance Directives: No Advance Directives Information Provided: No Patient : No service: No Sexual orientation: Don't Know Physical Exam Vital Signs: Vital Signs: Last Vital Signs Temp 97.9 F 02/09/22 16:51 Pulse 117 H 02/09/22 16:51 Resp 34 H 02/09/22 16:51 BP 102/77 02/09/22 16:51 Pulse Ox 99 02/09/22 16:51 BMI result Body Mass Index 38.1 Appearance: Alert. Oriented X3. Moderate emotional distress. Eyes: Pupils equal, round and reactive to light. EOMI. Sclera nonicteric. ENT: Pharynx normal. Moist mucous membranes. Neck: Normal inspection. Neck supple. CVS: Tachycardic heart rate and rhythm. Apical pulse equal pulses to extremities. Respiratory: No respiratory distress. Breath sounds normal. Abdomen: Soft and nontender. Skin: Multiple self-inflicted superficial lacerations in various stages of healing on arms legs and abdomen, otherwise Skin warm and dry. Normal skin color. Normal skin turgor. Extremities: No lower extremity edema. Moves all extremities against resistance. Neuro: No motor deficit. No sensory deficit. Cranial nerves 2-12 intact. Course Course Course Narrative: 46-year-old female presents via EMS for Tylenol overdose suspected to have taken 20 tablets of 500 mg acetaminophen. 16:08 discussion with poison. Ingestion time proximally 30-45 minutes ago, plan is for charcoal at this time. Tylenol levels now, 17:00, and then 4 hours later. If Tylenol level greater than 150 will start acetylcysteine at 150 milligrams/kilogram in 200 mL of D5 over 1 hour, then 50 milligrams/kilogram in 500 mL of D5 over 4 hours then 100 milligrams/kilogram in 1 L of D5 over 16 hours. If patient has blood acetaminophen level greater than 150 patient will need to be admitted to ICU. 16:30 left IJ placed by this [employer]. 20 gauge. 16:51 patient continues to drink charcoal 17:12 critical labs Mag 1.4, Tylenol 308, lactic 2.7, Mag 2 g, Mucomyst started 150 milligrams/kilogram in D5 200 mL. 1 L normal saline. 18:05 repeat acetaminophen level 330. 18:[address] Casarez, patient to be admitted ICU Consultations Consultation #1: Hermelindo Time: 18:12 MDM - Overdose Differential Diagnosis Differential diagnosis: Likely suicide attempt by multiple drug overdose and acetaminophen overdose Medical Records Attestation: I reviewed the patient's medical records. Lab Data Attestation: I reviewed the patient's lab results. Result diagrams: 02/09/22 16:40 02/09/22 16:40 Labs: Lab Results 02/09/22 02/09/22 02/09/22 Range/Units 16:40 16:40 16:40 WBC 6.5 (4.8-10.8) X10*3/uL RBC 3.86 L (4.20-5.50) X10*6/uL Hgb 11.2 L (12.0-16.0) g/dl Hct 34.0 L (37.0-47.0) % MCV 88.1 (80.0-98.0) fL MCH 29.0 (27.0-33.0) pg MCHC 32.9 (31.0-35.0) g/dl RDW 13.4 (11.0-16.0) % Plt Count 235 (160-400) X10*3/uL MPV 9.7 (9.4-12.3) fL Immature Gran % (Auto) 0.6 H (0.0-0.4) % Neut % (Auto) 53.7 (45-73) % Lymph % (Auto) 31.6 (20-40) % [place] % (Auto) 7.4 (2-11) % Eos % (Auto) 6.2 H (0-4) % Baso % (Auto) 0.5 (0-2) % Lymph # (Auto) 2.0 (1.2-4.9) X10*3/uL [place] # (Auto) 0.5 (0.1-1.2) X10*3/uL Eos # (Auto) 0.4 (0.0-0.4) X10*3/uL Baso # (Auto) 0.0 (0.0-0.2) X10*3/uL Abs Immat Gran (auto) 0.04 H (0.00-0.03) X10*3/uL Absolute Neuts (auto) 3.5 (2.0-8.3) x10*3/uL Absolute Nucleated RBC 0.000 (0.0-0.012) X10*3/uL Nucleated RBC % (auto) 0.0 (0.0-0.2) /100WBC PT 11.9 (9.9-13.0) SEC INR 1.0 (0.9-1.1) APTT 34.1 (24.1-38.0) SEC Sodium 139 (135-145) mmol/L Potassium 3.8 (3.3-5.1) mmol/L Chloride 105 (96-108) mmol/L Carbon Dioxide 24 (22-29) mmol/L Anion Gap 14 (12-20) BUN 5 L (9-16) mg/dL Creatinine 0.73 (0.5-1.4) mg/dL Estim Creat Clear Calc 117.6 Estimated GFR > 60 Random Glucose 128 H (60-115) mg/dL Lactic Acid (0.5-2.0) mmol/L Calcium 8.7 (8.4-10.2) mg/dL Magnesium 1.4 L* (1.6-2.6) mg/dL Total Bilirubin 0.2 (0.0-1.0) mg/dL Direct Bilirubin < 0.2 (0.0-0.5) mg/dL AST 18 (5-31) U/L ALT 17 (0-31) U/L Alkaline Phosphatase 91 (39-117) U/L Total Protein 6.1 L (6.5-8.0) g/dL Albumin 3.9 (3.5-5.0) g/dL Lipase 13 (8-78) U/L Urine Color Urine Appearance Urine pH (5.0-8.0) Ur Specific [place] (1.005-1.025) Urine Protein (NEG-TRACE) MG/DL Urine Glucose (UA) (NEG) MG/DL Urine Ketones (NEG) MG/DL Urine Blood (NEG) Urine Nitrite (NEG) Ur Leukocyte Esterase (NEG) Urine RBC (0) /HPF Urine WBC (0-4) /HPF Ur Squamous Epith Cells /LPF Urine Bacteria /LPF Salicylates < 5.0 L (15-30) mg/dL Urine Opiates Screen (Not Detect) Urine Fentanyl Screen (Not Detect) Acetaminophen 308 H* (<30) mcg/mL Ur Barbiturates Screen (Not Detect) Ur Phencyclidine Scrn (Not Detect) Ur Amphetamines Screen (Not Detect) U Benzodiazepines Scrn (Not Detect) Urine Cocaine Screen (Not Detect) U Marijuana (THC) Screen (Not Detect) Ethyl Alcohol mg/dL Influenza Type A (PCR) (Negative) Influenza Type B (PCR) (Negative) RSV RNA Qual (PCR) (Negative) SARS-CoV-2 RNA (RT-PCR) (Negative) 02/09/22 02/09/22 02/09/22 Range/Units 16:40 16:40 16:40 WBC (4.8-10.8) X10*3/uL RBC (4.20-5.50) X10*6/uL Hgb (12.0-16.0) g/dl Hct (37.0-47.0) % MCV (80.0-98.0) fL MCH (27.0-33.0) pg MCHC (31.0-35.0) g/dl RDW (11.0-16.0) % Plt Count (160-400) X10*3/uL MPV (9.4-12.3) fL Immature Gran % (Auto) (0.0-0.4) % Neut % (Auto) (45-73) % Lymph % (Auto) (20-40) % [place] % (Auto) (2-11) % Eos % (Auto) (0-4) % Baso % (Auto) (0-2) % Lymph # (Auto) (1.2-4.9) X10*3/uL [place] # (Auto) (0.1-1.2) X10*3/uL Eos # (Auto) (0.0-0.4) X10*3/uL Baso # (Auto) (0.0-0.2) X10*3/uL Abs Immat Gran (auto) (0.00-0.03) X10*3/uL Absolute Neuts (auto) (2.0-8.3) x10*3/uL Absolute Nucleated RBC (0.0-0.012) X10*3/uL Nucleated RBC % (auto) (0.0-0.2) /100WBC PT (9.9-13.0) SEC INR (0.9-1.1) APTT (24.1-38.0) SEC Sodium (135-145) mmol/L Potassium (3.3-5.1) mmol/L Chloride (96-108) mmol/L Carbon Dioxide (22-29) mmol/L Anion Gap (12-20) BUN (9-16) mg/dL Creatinine (0.5-1.4) mg/dL Estim Creat Clear Calc Estimated GFR Random Glucose (60-115) mg/dL Lactic Acid 2.7 H* (0.5-2.0) mmol/L Calcium (8.4-10.2) mg/dL Magnesium (1.6-2.6) mg/dL Total Bilirubin (0.0-1.0) mg/dL Direct Bilirubin (0.0-0.5) mg/dL AST (5-31) U/L ALT (0-31) U/L Alkaline Phosphatase (39-117) U/L Total Protein (6.5-8.0) g/dL Albumin (3.5-5.0) g/dL Lipase (8-78) U/L Urine Color Urine Appearance Urine pH (5.0-8.0) Ur Specific [place] (1.005-1.025) Urine Protein (NEG-TRACE) MG/DL Urine Glucose (UA) (NEG) MG/DL Urine Ketones (NEG) MG/DL Urine Blood (NEG) Urine Nitrite (NEG) Ur Leukocyte Esterase (NEG) Urine RBC (0) /HPF Urine WBC (0-4) /HPF Ur Squamous Epith Cells /LPF Urine Bacteria /LPF Salicylates (15-30) mg/dL Urine Opiates Screen (Not Detect) Urine Fentanyl Screen (Not Detect) Acetaminophen Cancelled (<30) mcg/mL Ur Barbiturates Screen (Not Detect) Ur Phencyclidine Scrn (Not Detect) Ur Amphetamines Screen (Not Detect) U Benzodiazepines Scrn (Not Detect) Urine Cocaine Screen (Not Detect) U Marijuana (THC) Screen (Not Detect) Ethyl Alcohol < 10 mg/dL Influenza Type A (PCR) (Negative) Influenza Type B (PCR) (Negative) RSV RNA Qual (PCR) (Negative) SARS-CoV-2 RNA (RT-PCR) (Negative) 02/09/22 02/09/22 02/09/22 Range/Units 16:49 17:30 17:40 WBC (4.8-10.8) X10*3/uL RBC (4.20-5.50) X10*6/uL Hgb (12.0-16.0) g/dl Hct (37.0-47.0) % MCV (80.0-98.0) fL MCH (27.0-33.0) pg MCHC (31.0-35.0) g/dl RDW (11.0-16.0) % Plt Count (160-400) X10*3/uL MPV (9.4-12.3) fL Immature Gran % (Auto) (0.0-0.4) % Neut % (Auto) (45-73) % Lymph % (Auto) (20-40) % [place] % (Auto) (2-11) % Eos % (Auto) (0-4) % Baso % (Auto) (0-2) % Lymph # (Auto) (1.2-4.9) X10*3/uL [place] # (Auto) (0.1-1.2) X10*3/uL Eos # (Auto) (0.0-0.4) X10*3/uL Baso # (Auto) (0.0-0.2) X10*3/uL Abs Immat Gran (auto) (0.00-0.03) X10*3/uL Absolute Neuts (auto) (2.0-8.3) x10*3/uL Absolute Nucleated RBC (0.0-0.012) X10*3/uL Nucleated RBC % (auto) (0.0-0.2) /100WBC PT (9.9-13.0) SEC INR (0.9-1.1) APTT (24.1-38.0) SEC Sodium (135-145) mmol/L Potassium (3.3-5.1) mmol/L Chloride (96-108) mmol/L Carbon Dioxide (22-29) mmol/L Anion Gap (12-20) BUN (9-16) mg/dL Creatinine (0.5-1.4) mg/dL Estim Creat Clear Calc Estimated GFR Random Glucose (60-115) mg/dL Lactic Acid (0.5-2.0) mmol/L Calcium (8.4-10.2) mg/dL Magnesium (1.6-2.6) mg/dL Total Bilirubin (0.0-1.0) mg/dL Direct Bilirubin (0.0-0.5) mg/dL AST (5-31) U/L ALT (0-31) U/L Alkaline Phosphatase (39-117) U/L Total Protein (6.5-8.0) g/dL Albumin (3.5-5.0) g/dL Lipase (8-78) U/L Urine Color Urine Appearance Urine pH (5.0-8.0) Ur Specific [place] (1.005-1.025) Urine Protein (NEG-TRACE) MG/DL Urine Glucose (UA) (NEG) MG/DL Urine Ketones (NEG) MG/DL Urine Blood (NEG) Urine Nitrite (NEG) Ur Leukocyte Esterase (NEG) Urine RBC (0) /HPF Urine WBC (0-4) /HPF Ur Squamous Epith Cells /LPF Urine Bacteria /LPF Salicylates (15-30) mg/dL Urine Opiates Screen Not Detected (Not Detect) Urine Fentanyl Screen Not Detected (Not Detect) Acetaminophen 330 H* (<30) mcg/mL Ur Barbiturates Screen Not Detected (Not Detect) Ur Phencyclidine Scrn Not Detected (Not Detect) Ur Amphetamines Screen Not Detected (Not Detect) U Benzodiazepines Scrn Not Detected (Not Detect) Urine Cocaine Screen Not Detected (Not Detect) U Marijuana (THC) Screen Not Detected (Not Detect) Ethyl Alcohol mg/dL Influenza Type A (PCR) NEGATIVE (Negative) Influenza Type B (PCR) NEGATIVE (Negative) RSV RNA Qual (PCR) NEGATIVE (Negative) SARS-CoV-2 RNA (RT-PCR) NEGATIVE (Negative) 02/09/22 Range/Units 17:40 WBC (4.8-10.8) X10*3/uL RBC (4.20-5.50) X10*6/uL Hgb (12.0-16.0) g/dl Hct (37.0-47.0) % MCV (80.0-98.0) fL MCH (27.0-33.0) pg MCHC (31.0-35.0) g/dl RDW (11.0-16.0) % Plt Count (160-400) X10*3/uL MPV (9.4-12.3) fL Immature Gran % (Auto) (0.0-0.4) % Neut % (Auto) (45-73) % Lymph % (Auto) (20-40) % [place] % (Auto) (2-11) % Eos % (Auto) (0-4) % Baso % (Auto) (0-2) % Lymph # (Auto) (1.2-4.9) X10*3/uL [place] # (Auto) (0.1-1.2) X10*3/uL Eos # (Auto) (0.0-0.4) X10*3/uL Baso # (Auto) (0.0-0.2) X10*3/uL Abs Immat Gran (auto) (0.00-0.03) X10*3/uL Absolute Neuts (auto) (2.0-8.3) x10*3/uL Absolute Nucleated RBC (0.0-0.012) X10*3/uL Nucleated RBC % (auto) (0.0-0.2) /100WBC PT (9.9-13.0) SEC INR (0.9-1.1) APTT (24.1-38.0) SEC Sodium (135-145) mmol/L Potassium (3.3-5.1) mmol/L Chloride (96-108) mmol/L Carbon Dioxide (22-29) mmol/L Anion Gap (12-20) BUN (9-16) mg/dL Creatinine (0.5-1.4) mg/dL Estim Creat Clear Calc Estimated GFR Random Glucose (60-115) mg/dL Lactic Acid (0.5-2.0) mmol/L Calcium (8.4-10.2) mg/dL Magnesium (1.6-2.6) mg/dL Total Bilirubin (0.0-1.0) mg/dL Direct Bilirubin (0.0-0.5) mg/dL AST (5-31) U/L ALT (0-31) U/L Alkaline Phosphatase (39-117) U/L Total Protein (6.5-8.0) g/dL Albumin (3.5-5.0) g/dL Lipase (8-78) U/L Urine Color YELLOW Urine Appearance CLEAR Urine pH 5.5 (5.0-8.0) Ur Specific [place] >= 1.030 H (1.005-1.025) Urine Protein NEG (NEG-TRACE) MG/DL Urine Glucose (UA) NEG (NEG) MG/DL Urine Ketones NEG (NEG) MG/DL Urine Blood 3+ H (NEG) Urine Nitrite NEG (NEG) Ur Leukocyte Esterase NEG (NEG) Urine RBC 10-14 H (0) /HPF Urine WBC 0 (0-4) /HPF Ur Squamous Epith Cells TRACE /LPF Urine Bacteria NONE /LPF Salicylates (15-30) mg/dL Urine Opiates Screen (Not Detect) Urine Fentanyl Screen (Not Detect) Acetaminophen (<30) mcg/mL Ur Barbiturates Screen (Not Detect) Ur Phencyclidine Scrn (Not Detect) Ur Amphetamines Screen (Not Detect) U Benzodiazepines Scrn (Not Detect) Urine Cocaine Screen (Not Detect) U Marijuana (THC) Screen (Not Detect) Ethyl Alcohol mg/dL Influenza Type A (PCR) (Negative) Influenza Type B (PCR) (Negative) RSV RNA Qual (PCR) (Negative) SARS-CoV-2 RNA (RT-PCR) (Negative) Imaging Data Chest x-ray: Attestation: I personally reviewed and interpreted this imaging study as follows: Radiologist's impression: EXAMINATION: XR CHEST CLINICAL INFORMATION: Overdose COMPARISON: Chest x-ray 02/07/2022 TECHNIQUE: Frontal view of the chest was obtained. FINDINGS: Cardiac silhouette is normal in size. The lungs are well aerated. There is no lobar consolidation. No pleural effusion or pneumothorax. No gross osseous abnormality. XR/XR chest 1V IMPRESSION: No acute pulmonary pathology. ? ECG Data Attestation: I personally reviewed and interpreted this ECG as follows: ECG interpretation date: 02/09/22 ECG interpretation time: 16:19 Prior ECG tracings: available for review Interpretation: Vent. rate 96 BPM NH interval 172 ms QRS duration 88 ms QT/QTc 380/480 ms P-R-T axes 11 19 13 Normal sinus rhythm Prolonged QT Abnormal ECG When compared with ECG of 04-FEB-2022 19:27, No significant change was found Critical Care Time Critical Care Time Critical Care Time: Yes Total Critical Care Time: 160 Attestation: I have personally provided critical care time exclusive of time spent on separately billable procedures. Time includes review of laboratory data, radiology results, discussion with consultants, and monitoring for potential decompensation. Interventions were performed as documented. Discharge Plan Discharge Clinical Impression: Borderline personality disorder, Depression, Acetaminophen overdose, Suicide attempt by acetaminophen overdose, Suicide attempt Patient Disposition: Admitted As Inpatient
--- NOTE | 2022-02-09 15:55 | ECG_ITS ---
Test Reason : overdose Blood Pressure : / mmHG Vent. Rate : 096 BPM Atrial Rate : 096 BPM P-R Int : 172 ms QRS Dur : 088 ms QT Int : 380 ms P-R-T Axes : 011 019 013 degrees QTc Int : 480 ms Normal sinus rhythm Prolonged QT Abnormal ECG When compared with ECG of 04-FEB-2022 19:27, QT has lengthened Referred By: Rosario Murry Electronically Signed By:MAURI COLE
--- NOTE | 2022-02-09 16:13 | PC.NURSE ---
provider on the phone w poison control.
[2022-02-09 16:47] LABS: MANUAL DIFF FLAG NO
[2022-02-09] MEDS: Activated charcoaL 50 GM/240 ML ORAL.SUSP PO (16:49)
[2022-02-09 16:53] LABS: Basophils Percent Auto 0.5 % (0-2); Eosinophils Absolute Auto 0.4 X10*3/uL (0.0-0.4); Eosinophils Percent Auto 6.2 % (0-4); Hemoglobin 11.2 g/dl (12.0-16.0); Imm Gran Abs Auto 0.04 X10*3/uL (0.00-0.03); Imm Gran Pct Auto 0.6 % (0.0-0.4); Lymphocytes Percent Auto 31.6 % (20-40); Mean Corpuscular HGB Conc 32.9 g/dl (31.0-35.0); Mean Corpuscular Volume 88.1 fL (80.0-98.0); Mean Platelet Volume 9.7 fL (9.4-12.3); Monocytes Absolute Auto 0.5 X10*3/uL (0.1-1.2); Monocytes Percent Auto 7.4 % (2-11); Neutrophils Absolute Auto 3.5 x10*3/uL (2.0-8.3); Neutrophils Percent Auto 53.7 % (45-73); Platelet Count 235 X10*3/uL (160-400); Red Blood Count 3.86 X10*6/uL (4.20-5.50); Red Cell Distribution Width 13.4 % (11.0-16.0); White Blood Count 6.5 X10*3/uL (4.8-10.8)
--- NOTE | 2022-02-09 16:54 | PC.NURSE ---
pt a&ox3, cardiac nurse practitioner applied - sinus tach, RR 35, other vss. 20G IV placed left EJ by provider. labs drawn. medicated w charcoal per provider order - pt drank charcoal independently.
[2022-02-09] MEDS: 0.9 % Sodium Chloride 1,000 ML 999 ML IVCONT (16:59)
[2022-02-09 17:02] LABS: Ethanol < 10 mg/dL; Prothrombin Time 11.9 SEC (9.9-13.0)
[2022-02-09 17:05] LABS: Partial Thromboplastin Time 34.1 SEC (24.1-38.0)
[2022-02-09 17:11] LABS: Acetaminophen LAB 308 mcg/mL (<30); Alanine Aminotransferase 17 U/L (0-31); Albumin Level 3.9 g/dL (3.5-5.0); Alkaline Phosphatase 91 U/L (39-117); Anion Gap 14 (12-20); Aspartate Amino Transferase 18 U/L (5-31); Bilirubin Direct < 0.2 mg/dL (0.0-0.5); Bilirubin Total 0.2 mg/dL (0.0-1.0); Blood Urea Nitrogen 5 mg/dL (9-16); Calcium 8.7 mg/dL (8.4-10.2); Carbon Dioxide 24 mmol/L (22-29); Chloride 105 mmol/L (96-108); Creatinine Clr Calc Pharmacy 117.6; Estimated Glomerular Filt Rate > 60; Glucose Random 128 mg/dL (60-115); Lactic Acid 2.7 mmol/L (0.5-2.0); Lipase 13 U/L (8-78); Magnesium 1.4 mg/dL (1.6-2.6); Potassium 3.8 mmol/L (3.3-5.1); Salicylate < 5.0 mg/dL (15-30); Sodium 139 mmol/L (135-145); Total Protein 6.1 g/dL (6.5-8.0)
--- NOTE | 2022-02-09 17:11 | PC.NURSE ---
IVF started per provider order.
[2022-02-09 17:31] LABS: Influenza A PCR NEGATIVE (Negative); Influenza B PCR NEGATIVE (Negative); Resp Syncy Virus RNA Qual PCR NEGATIVE (Negative); SARS COV2 PCR INHOUSE NEGATIVE (Negative)
[2022-02-09] MEDS: Acetylcysteine 15,000 MG in Dextrose 5 % 200 ML 275 MG IV (17:42)
[2022-02-09 17:58] LABS: Acetaminophen LAB 330 mcg/mL (<30)
[2022-02-09 17:59] LABS: Appearance Urine CLEAR; Color Urine YELLOW; Glucose Urine UA NEG (NEG); Leukocyte Esterase Urine NEG (NEG); Nitrite Urine NEG (NEG); PH 5.5 (5.0-8.0); Specific Gravity - Urine >= 1.030 (1.005-1.025); UACC Culture Trigger NO; Urine Blood 3+ (NEG); Urine Ketones NEG (NEG); Urine Protein NEG (NEG-TRACE)
[2022-02-09 18:09] LABS: Amphetamine Screen Urine Not Detected (Not Detect); Barbiturates, Urine Not Detected (Not Detect); Benzodiazepines Screen Urine Not Detected (Not Detect); Cannabinoid Screen Urine Not Detected (Not Detect); Cocaine Screen Urine Not Detected (Not Detect); Fentanyl, urine Not Detected (Not Detect); Opiate Screen Urine Not Detected (Not Detect); Phencyclidine Screen Urine Not Detected (Not Detect)
[2022-02-09 18:26] LABS: Squamous Epithelial Cell Urine TRACE /LPF; WBC Urine 0 /HPF (0-4)
[2022-02-09 18:44] LABS: Reflex Lactate? Lactic Acid Added
--- NOTE | 2022-02-09 18:45 | PHA.MEDREC ---
Pharmacy Consult ? Medication Reconciliation Pharmacy has completed the medication reconciliation.
[2022-02-09] MEDS: Magnesium Sulfate/H2O 2 GM/50 ML PIGGYBACK IV (19:05)
[2022-02-09] MEDS: Heparin Sodium,Porcine 5,000 UNIT/ML VIAL 5000 UNIT SUBCUT (19:05)
[2022-02-09 19:46] LABS: ~Lactic Acid-LAB USE ONLY 2.8 mmol/L (0.5-2.0)
[2022-02-09] MEDS: Lactated Ringers 1,000 ML 150 ML IVCONT (20:12)
[2022-02-09] MEDS: Acetylcysteine 5,000 MG in Dextrose 5 % 500 ML 131.25 MG IV (20:22)
--- NOTE | 2022-02-09 21:25 | P.HPCC_ITS ---
History of Present Illness Date of Service: 02/09/22 Attending physician on admission: Roberth Casarez Chief Complaint: Acetaminophen overdose Pt is a 46-year-old female with a past medical history of SI attempts in the past, PTSD, borderline personality disorder, major depressive disorder, h yperlipidemia, GERD and type 2 diabetes presented to the ED via EMS earlier today for an intentional Tylenol overdose. Pt was suspected to have taken 20 tablets of 500mg Tylenol approx 30-45 [employer]. Poison control recommendations as follows: pt is to drink charcoal.? Tylenol levels stat, 17:00, and 21:00.? If Tylenol level greater than 150 will start acetylcysteine at 150 milligrams/kilogram in 200 mL of D5 over 1 hour, then 50 milligrams/kilogram in 500 mL of D5 over 4 hours then 100 milligrams/kilogram in 1 L of D5 over 16 hours.? If patient has blood acetaminophen level greater than 150 patient will need to be admitted to ICU. Vitals were notable for slight tachycardia 117, RR 34, slightly hypertensive at 157/92, otherwise stable. Vital signs improving upon arrival to ICU except pt st ill hypertensive at 152/93. PE unremarkable in the ED. Labs remarkable for Mag 1.4, Tylenol 308, lactic 2.7. Mag? 2 g given in the ED. The above protocol was followed by the ED, pt is to be admitted to the ICU, continuing the protocol poison control recommended, discussed case with Dr Casarez. Review of Systems Review of Systems: nausea Yes all other systems are reviewed and are negative PMFSH Past Medical History Medical History Bronchitis Diabetes type 2, controlled GERD (gastroesophageal reflux disease) Hyperlipidemia MDD (major depressive disorder), recurrent episode, severe Mood disorder Overdose PTSD (post-traumatic stress disorder) Social History Social History 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: None 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 Other:: Patient lives [facility]. 4 in total live [facility] Housing: Other Housing Other:: [facility] Do you presently have visiting nurse or other home services: No Unable to assess alcohol history related to: Unknown Alcohol intake: never Patient Tobacco Use Status: Current everyday Tobacco user Tobacco use type: Cigarette Cigarette Packs Per Day: 1 Cigarettes Per Day: 20 Years Smoked: 20 Smoked in Last 30 Days: Yes e-Cigarette/Vaping Use: Never Used Patient Interested in Nicotine Replacement: No Patient Given Instructions on How to Stop Smoking: No Use of substances other than those prescribed or required for medical reasons: No Substance Use Type: Caffiene Currently Displaying Signs/Symptoms of Drug Intoxication Withdrawal: No Any prior treatment program specific to substance use: No Have you been hit, kicked, punched, or otherwise hurt by someone within the past year? If so, by whom?: No Do you feel safe in your current relationship?: No Current Relationship Advance Directives: No Advance Directives Information Provided: No Advance Directives on File: No Do you have thoughts of harming others: None Do you have a plan to hurt others: No Plan Recently lost weight without trying: No Eating poorly because of decreased appetite: No Nutrition Risks: No Nutritional Risk Patient : No : No Poor oral hygiene: No service: No Sexual orientation: Don't Know Meds Allergies Allergy/AdvReac Type Severity Reaction Status Date / Time Fish Containing Products Allergy Severe ANAPHYLAXIS Verified 01/26/22 10:18 codeine [Codeine] Allergy Unknown RASH Verified 01/26/22 10:18 Penicillins Allergy Unknown RASH Verified 01/26/22 10:18 prednisone [Prednisone] Allergy Unknown RASH Verified 01/26/22 10:18 Sulfa (Sulfonamide Allergy Unknown RASH Verified 01/26/22 10:18 Antibiotics) [Sulfa (Sulfonamides)] azithromycin [AZITHROMYCIN] AdvReac Severe RASH Verified 01/26/22 10:18 nicotine AdvReac Unknown HEART Verified 01/26/22 10:18 PALPITATION TO NICOTINE GUM Seafood Allergy Severe ANAPHYLAXIS Uncoded 11/05/21 21:13 From [place] Allergy Unknown DYSURIA, Uncoded 11/05/21 21:13 RASH Active Medications: Current Medications Heparin Sodium (Porcine) (Heparin Sodium,Porcine 5,000 Unit/Ml Vial) 5,000 unit SUBCUT Q8H [facility] Last Admin: 02/09/22 19:05 Dose: 5,000 unit Documented by: Acetylcysteine 5,000 mg/ (Dextrose) 525 mls @ 131.25 mls/hr IV ONCE ONE Stop: 02/09/22 22:29 Last Admin: 02/09/22 20:22 Dose: 131.25 mls/hr Documented by: Acetylcysteine 10,000 mg/ (Dextrose) 1,050 mls @ 65.625 mls/hr IV ONCE@2230 YULY Lactated Ringer's (Lr) 1,000 mls @ 150 mls/hr IVCONT .Q6H40M YULY Last Admin: 02/09/22 20:12 Dose: 150 mls/hr Documented by: Home Medications Medication Instructions Recorded Confirmed Last Taken Type atorvastatin 10 mg tablet 1 tab PO DAILY 05/29/21 02/09/22 02/07/22 08:00 History fluticasone propionate 110 2 puff INHALATION BID 05/29/21 02/09/22 02/07/22 08:00 History mcg/actuation HFA aerosol inhaler (Flovent HFA) metformin 500 mg tablet 1 tab PO BID 05/29/21 02/09/22 02/07/22 08:00 History montelukast 10 mg tablet 1 tab PO BEDTIME 05/29/21 02/09/22 02/06/22 20:00 History verapamil 240 mg tablet,extended 1 tab PO BEDTIME 05/29/21 02/09/22 02/06/22 20:00 History release albuterol sulfate 90 mcg/actuation 2 puff INHALATION Q4H PRN 06/15/21 02/09/22 02/06/22 20:00 History aerosol inhaler (Ventolin HFA) trazodone 150 mg tablet 150 mg PO BEDTIME PRN 11/05/21 02/09/22 02/06/22 20:00 History lisinopril 5 mg tablet 1 tab PO DAILY 11/14/21 02/09/22 02/07/22 08:00 History benztropine 1 mg tablet 1 mg PO BID 12/26/21 02/09/22 02/07/22 08:00 History naproxen 500 mg tablet 1 tab PO BID 01/23/22 02/09/22 02/07/22 08:00 History Physical Exam Vital Signs: Vital Signs: Last Vital Signs Temp 97.3 F 02/09/22 19:00 Pulse 81 02/09/22 21:00 Resp 19 02/09/22 21:00 BP 152/93 H 02/09/22 21:00 Pulse Ox 93 02/09/22 21:00 BMI result Body Mass Index 38.1 Const: General: cooperative, comfortable, no acute distress, well developed and tired appearing Nutritional Appearance: obese Orientation/consciousness: patient oriented x3 Limitations: no limitations HEENT: Head: Yes normal to inspection, Yes No palpable skull fracture present, Yes normocephalic and Yes atraumatic Ears: hearing grossly normal bilaterally General nose exam: Normal external nose present Face and sinus: Yes other (charcoal around lips) Teeth and gingiva: edentulous Eyes: General: appearance normal, both eyes and all related structures EOM: EOMs intact bilaterally Neck: Neck: Yes normal visual inspection and Yes full ROM Resp: Effort & Inspection: normal respiratory effort and able to speak in complete sentences Auscultation: clear to auscultation bilaterally Cardio: Rate: regular rate Rhythm: regular rhythm Heart sounds: normal S1 and S2 GI: Inspection: Yes Abdominal panniculus present Palpation (GI): Soft to palpation and nontender Skin: General skin exam: no rashes or lesions noted and scars (& healing superficial cuts to bilat UE, LE and abd; no signs of infection ) Neuro: General: patient oriented x3 Extrem: General: Yes normal to inspection Results Labs CBC and Chem 7: 02/09/22 16:40 02/09/22 16:40 Labs: Laboratory Results - last 24 hr 02/09/22 02/09/22 02/09/22 16:40 16:40 16:40 MCV 88.1 MCH 29.0 MCHC 32.9 RDW 13.4 Plt Count 235 MPV 9.7 Immature Gran % (Auto) 0.6 H Neut % (Auto) 53.7 Lymph % (Auto) 31.6 [place] % (Auto) 7.4 Eos % (Auto) 6.2 H Baso % (Auto) 0.5 Lymph # (Auto) 2.0 [place] # (Auto) 0.5 Eos # (Auto) 0.4 Baso # (Auto) 0.0 Abs Immat Gran (auto) 0.04 H Absolute Neuts (auto) 3.5 Absolute Nucleated RBC 0.000 Nucleated RBC % (auto) 0.0 PT 11.9 INR 1.0 APTT 34.1 Anion Gap 14 Estim Creat Clear Calc 117.6 Estimated GFR > 60 Random Glucose 128 H Lactic Acid Lactic Acid F/U @ 2Hr Calcium 8.7 Magnesium 1.4 L* Total Bilirubin 0.2 Direct Bilirubin < 0.2 AST 18 ALT 17 Alkaline Phosphatase 91 Total Protein 6.1 L Albumin 3.9 Lipase 13 Urine Color Urine Appearance Urine pH Ur Specific [place] Urine Protein Urine Glucose (UA) Urine Ketones Urine Blood Urine Nitrite Ur Leukocyte Esterase Urine RBC Urine WBC Ur Squamous Epith Cells Urine Bacteria Salicylates < 5.0 L Urine Opiates Screen Urine Fentanyl Screen Acetaminophen 308 H* Ur Barbiturates Screen Ur Phencyclidine Scrn Ur Amphetamines Screen U Benzodiazepines Scrn Urine Cocaine Screen U Marijuana (THC) Screen Ethyl Alcohol Influenza Type A (PCR) Influenza Type B (PCR) RSV RNA Qual (PCR) SARS-CoV-2 RNA (RT-PCR) 02/09/22 02/09/22 02/09/22 16:40 16:40 16:40 MCV MCH MCHC RDW Plt Count MPV Immature Gran % (Auto) Neut % (Auto) Lymph % (Auto) [place] % (Auto) Eos % (Auto) Baso % (Auto) Lymph # (Auto) [place] # (Auto) Eos # (Auto) Baso # (Auto) Abs Immat Gran (auto) Absolute Neuts (auto) Absolute Nucleated RBC Nucleated RBC % (auto) PT INR APTT Anion Gap Estim Creat Clear Calc Estimated GFR Random Glucose Lactic Acid 2.7 H* Lactic Acid F/U @ 2Hr Calcium Magnesium Total Bilirubin Direct Bilirubin AST ALT Alkaline Phosphatase Total Protein Albumin Lipase Urine Color Urine Appearance Urine pH Ur Specific [place] Urine Protein Urine Glucose (UA) Urine Ketones Urine Blood Urine Nitrite Ur Leukocyte Esterase Urine RBC Urine WBC Ur Squamous Epith Cells Urine Bacteria Salicylates Urine Opiates Screen Urine Fentanyl Screen Acetaminophen Cancelled Ur Barbiturates Screen Ur Phencyclidine Scrn Ur Amphetamines Screen U Benzodiazepines Scrn Urine Cocaine Screen U Marijuana (THC) Screen Ethyl Alcohol < 10 Influenza Type A (PCR) Influenza Type B (PCR) RSV RNA Qual (PCR) SARS-CoV-2 RNA (RT-PCR) 02/09/22 02/09/22 02/09/22 16:49 17:30 17:40 MCV MCH MCHC RDW Plt Count MPV Immature Gran % (Auto) Neut % (Auto) Lymph % (Auto) [place] % (Auto) Eos % (Auto) Baso % (Auto) Lymph # (Auto) [place] # (Auto) Eos # (Auto) Baso # (Auto) Abs Immat Gran (auto) Absolute Neuts (auto) Absolute Nucleated RBC Nucleated RBC % (auto) PT INR APTT Anion Gap Estim Creat Clear Calc Estimated GFR Random Glucose Lactic Acid Lactic Acid F/U @ 2Hr Calcium Magnesium Total Bilirubin Direct Bilirubin AST ALT Alkaline Phosphatase Total Protein Albumin Lipase Urine Color Urine Appearance Urine pH Ur Specific [place] Urine Protein Urine Glucose (UA) Urine Ketones Urine Blood Urine Nitrite Ur Leukocyte Esterase Urine RBC Urine WBC Ur Squamous Epith Cells Urine Bacteria Salicylates Urine Opiates Screen Not Detected Urine Fentanyl Screen Not Detected Acetaminophen 330 H* Ur Barbiturates Screen Not Detected Ur Phencyclidine Scrn Not Detected Ur Amphetamines Screen Not Detected U Benzodiazepines Scrn Not Detected Urine Cocaine Screen Not Detected U Marijuana (THC) Screen Not Detected Ethyl Alcohol Influenza Type A (PCR) NEGATIVE Influenza Type B (PCR) NEGATIVE RSV RNA Qual (PCR) NEGATIVE SARS-CoV-2 RNA (RT-PCR) NEGATIVE 02/09/22 02/09/22 17:40 19:24 MCV MCH MCHC RDW Plt Count MPV Immature Gran % (Auto) Neut % (Auto) Lymph % (Auto) [place] % (Auto) Eos % (Auto) Baso % (Auto) Lymph # (Auto) [place] # (Auto) Eos # (Auto) Baso # (Auto) Abs Immat Gran (auto) Absolute Neuts (auto) Absolute Nucleated RBC Nucleated RBC % (auto) PT INR APTT Anion Gap Estim Creat Clear Calc Estimated GFR Random Glucose Lactic Acid Lactic Acid F/U @ 2Hr 2.8 H* Calcium Magnesium Total Bilirubin Direct Bilirubin AST ALT Alkaline Phosphatase Total Protein Albumin Lipase Urine Color YELLOW Urine Appearance CLEAR Urine pH 5.5 Ur Specific [place] >= 1.030 H Urine Protein NEG Urine Glucose (UA) NEG Urine Ketones NEG Urine Blood 3+ H Urine Nitrite NEG Ur Leukocyte Esterase NEG Urine RBC 10-14 H Urine WBC 0 Ur Squamous Epith Cells TRACE Urine Bacteria NONE Salicylates Urine Opiates Screen Urine Fentanyl Screen Acetaminophen Ur Barbiturates Screen Ur Phencyclidine Scrn Ur Amphetamines Screen U Benzodiazepines Scrn Urine Cocaine Screen U Marijuana (THC) Screen Ethyl Alcohol Influenza Type A (PCR) Influenza Type B (PCR) RSV RNA Qual (PCR) SARS-CoV-2 RNA (RT-PCR) Imaging Radiologist's Impressions: Impressions Chest X-Ray 02/09/22 16:45 IMPRESSION: No acute pulmonary pathology. Assessment and Plan (1) Suicide attempt by acetaminophen overdose: Status: Acute Pt has sitter. Pt receiving acetylcysteine as per poison control recommendation; continue to monitor acetaminophen levels overnight. If they continue to rise, may need transfer to [facility]. psych consult ordered (2) PTSD (post-traumatic stress disorder): Status: Chronic Pt on prazosin (3) Borderline personality disorder: Status: Chronic (4) Depression: Status: Acute pt on fluoxetine and mirtazapine (5) Hypomagnesemia: Status: Acute Pt rec'd 2g mag in ED, monitor lab (6) History of non-suicidal self-harm: Status: Chronic pt has scars and healing cuts over bilateral arms, legs and abdomen, no signs of infection noted (7) History of attempted suicide: Status: Acute Plan Heparin NPO Critical Care Time Critical Care Time (minutes): 30
[2022-02-09 21:26] LABS: Reflex Lactate? 2 Y
--- NOTE | 2022-02-09 21:49 | MHC.CARE ---
Pt is well known to the CARE Team, once medically cleared CARE team should be consulted.
[2022-02-09 22:59] LABS: Acetaminophen LAB 245 mcg/mL (<30); Magnesium 2.2 mg/dL (1.6-2.6)
[2022-02-10] VITALS (13 sets, daily range): BP systolic 117–165; BP diastolic 48–107; PULSE 64–89; RESP 13–19; TEMP 36.4–36.6; O2SAT 95–98; BMI 40.1
[2022-02-10] MEDS: LORazepam 2 MG/ML VIAL 1 MG IVPUSH (00:08)
[2022-02-10] MEDS: Acetylcysteine 10,000 MG in Dextrose 5 % 1,000 ML 65.6 MG IV ×2 (00:50→22:54)
[2022-02-10] MEDS: Lactated Ringers 1,000 ML 150 ML IVCONT (02:26)
--- NOTE | 2022-02-10 05:34 | PC.NURSE ---
CARE ASSUMED 23;15..napping intermittantly overnight..easily aroused..alert..flat affect..oob to bedside commode x2 with steady gait....voided 500ml and 899ml...nsr..no ectopy..respirations easy on room air..sao2 95-96%....lr 150 cc/hr and iv mucomyst infusions per mar...poison control requested update at 12am...lab-work and mar reviewed with poison control...they request coagulation/liver profile approx 2 hours before mucomyst therapy completed...icu pa ordered labwork for 2pm per cpoe
[2022-02-10 05:36] LABS: MANUAL DIFF FLAG NO
[2022-02-10 05:40] LABS: VBG Base Excess -3.8 mmol/L; VBG HCO3 20 mmol/L (22-26); VBG pCO2 34 mmHg; VBG pH 7.38 (7.32-7.43); VBG pO2 46 mmHg
[2022-02-10 05:43] LABS: Basophils Percent Auto 0.6 % (0-2); Eosinophils Absolute Auto 0.2 X10*3/uL (0.0-0.4); Hematocrit 40.7 % (37.0-47.0); Hemoglobin 13.4 g/dl (12.0-16.0); Imm Gran Abs Auto 0.03 X10*3/uL (0.00-0.03); Imm Gran Pct Auto 0.5 % (0.0-0.4); Lymphocytes Absolute Auto 1.8 X10*3/uL (1.2-4.9); Lymphocytes Percent Auto 27.5 % (20-40); Mean Corpuscular HGB Conc 32.9 g/dl (31.0-35.0); Mean Corpuscular Hemoglobin 28.9 pg (27.0-33.0); Mean Corpuscular Volume 87.9 fL (80.0-98.0); Monocytes Absolute Auto 0.5 X10*3/uL (0.1-1.2); Monocytes Percent Auto 7.3 % (2-11); Neutrophils Absolute Auto 4.1 x10*3/uL (2.0-8.3); Neutrophils Percent Auto 61.1 % (45-73); Platelet Count 267 X10*3/uL (160-400); Red Blood Count 4.63 X10*6/uL (4.20-5.50); Red Cell Distribution Width 13.2 % (11.0-16.0); White Blood Count 6.6 X10*3/uL (4.8-10.8)
[2022-02-10 05:48] LABS: Venous Blood Gas Refer to POC result
[2022-02-10 06:12] LABS: Acetaminophen LAB 46 mcg/mL (<30); Alanine Aminotransferase 16 U/L (0-31); Albumin Level 3.8 g/dL (3.5-5.0); Alkaline Phosphatase 83 U/L (39-117); Anion Gap 11 (12-20); Aspartate Amino Transferase 15 U/L (5-31); Bilirubin Total 0.2 mg/dL (0.0-1.0); Blood Urea Nitrogen 4 mg/dL (9-16); Calcium 8.5 mg/dL (8.4-10.2); Carbon Dioxide 22 mmol/L (22-29); Chloride 107 mmol/L (96-108); Creatinine Clr Calc Pharmacy 122.8; Estimated Glomerular Filt Rate > 60; Glucose Random 111 mg/dL (60-115); Magnesium 2.1 mg/dL (1.6-2.6); Potassium 3.4 mmol/L (3.3-5.1); Sodium 137 mmol/L (135-145); Total Protein 6.3 g/dL (6.5-8.0)
--- NOTE | 2022-02-10 08:20 | P.PNCC_ITS ---
Subjective Subjective Date of Service: 02/10/22 Interval History: 46-year-old lady with underlying history of borderline personality disorder, depression, prior history of suicide attempts admitted on 02/09/2022 approximately 1 now after patient has taking 20 500 mg Tylenol tablets. Poison Control contacted by emergency room provider. InitialTylenol level of 300, patient started on acetylcysteine protocol. Tylenol level this a.m. is 45. Patient is awake and alert and tolerating p.o. diet. She has one-to-one precautions at this time. Critical Care Time (minutes): 0 Physical Exam Vital Signs: Vital Signs: Last Vital Signs Temp 97.9 F 02/10/22 00:00 Pulse 74 02/10/22 07:00 Resp 19 02/10/22 07:00 BP 134/82 02/10/22 07:00 Pulse Ox 97 02/10/22 07:00 BMI result Body Mass Index 40.1 Const: General: no acute distress, alert and awake Eyes: Sclerae: sclerae normal EOM: EOMs intact bilaterally Neck: Neck: Yes no lymphadenopathy, Yes trachea midline and Yes supple Resp: Effort & Inspection: normal respiratory effort and no respiratory distress Auscultation: clear to auscultation bilaterally Cardio: Rate: regular rate Rhythm: regular rhythm Heart sounds: no gallops, no murmurs and no rubs GI: Palpation (GI): Soft to palpation and Other GI palpation findings present ( Nontender) Auscultation: normal bowel sounds Extrem: General: Yes no pedal edema, No clubbing and No cyanosis Objective Data Labs CBC & Chem 7: 02/10/22 05:28 02/10/22 05:28 Labs: Laboratory Results - last 24 hr 02/09/22 02/09/22 02/09/22 16:40 16:40 16:40 WBC 6.5 RBC 3.86 L Hgb 11.2 L Hct 34.0 L MCV 88.1 MCH 29.0 MCHC 32.9 RDW 13.4 Plt Count 235 MPV 9.7 Immature Gran % (Auto) 0.6 H Neut % (Auto) 53.7 Lymph % (Auto) 31.6 [place] % (Auto) 7.4 Eos % (Auto) 6.2 H Baso % (Auto) 0.5 Lymph # (Auto) 2.0 [place] # (Auto) 0.5 Eos # (Auto) 0.4 Baso # (Auto) 0.0 Abs Immat Gran (auto) 0.04 H Absolute Neuts (auto) 3.5 Absolute Nucleated RBC 0.000 Nucleated RBC % (auto) 0.0 PT 11.9 INR 1.0 APTT 34.1 VBG pH VBG pCO2 VBG pO2 VBG HCO3 VBG O2 Saturation VBG Base Excess Sodium 139 Potassium 3.8 Chloride 105 Carbon Dioxide 24 Anion Gap 14 BUN 5 L Creatinine 0.73 Estim Creat Clear Calc 117.6 Estimated GFR > 60 Random Glucose 128 H Lactic Acid Lactic Acid F/U @ 2Hr Lactic Acid F/U @ 4Hr Calcium 8.7 Phosphorus Magnesium 1.4 L* Total Bilirubin 0.2 Direct Bilirubin < 0.2 AST 18 ALT 17 Alkaline Phosphatase 91 Total Protein 6.1 L Albumin 3.9 Lipase 13 Urine Color Urine Appearance Urine pH Ur Specific [place] Urine Protein Urine Glucose (UA) Urine Ketones Urine Blood Urine Nitrite Ur Leukocyte Esterase Urine RBC Urine WBC Ur Squamous Epith Cells Urine Bacteria Salicylates < 5.0 L Urine Opiates Screen Urine Fentanyl Screen Acetaminophen 308 H* Ur Barbiturates Screen Ur Phencyclidine Scrn Ur Amphetamines Screen U Benzodiazepines Scrn Urine Cocaine Screen U Marijuana (THC) Screen Ethyl Alcohol Influenza Type A (PCR) Influenza Type B (PCR) RSV RNA Qual (PCR) SARS-CoV-2 RNA (RT-PCR) 02/09/22 02/09/22 02/09/22 16:40 16:40 16:40 WBC RBC Hgb Hct MCV MCH MCHC RDW Plt Count MPV Immature Gran % (Auto) Neut % (Auto) Lymph % (Auto) [place] % (Auto) Eos % (Auto) Baso % (Auto) Lymph # (Auto) [place] # (Auto) Eos # (Auto) Baso # (Auto) Abs Immat Gran (auto) Absolute Neuts (auto) Absolute Nucleated RBC Nucleated RBC % (auto) PT INR APTT VBG pH VBG pCO2 VBG pO2 VBG HCO3 VBG O2 Saturation VBG Base Excess Sodium Potassium Chloride Carbon Dioxide Anion Gap BUN Creatinine Estim Creat Clear Calc Estimated GFR Random Glucose Lactic Acid 2.7 H* Lactic Acid F/U @ 2Hr Lactic Acid F/U @ 4Hr Calcium Phosphorus Magnesium Total Bilirubin Direct Bilirubin AST ALT Alkaline Phosphatase Total Protein Albumin Lipase Urine Color Urine Appearance Urine pH Ur Specific [place] Urine Protein Urine Glucose (UA) Urine Ketones Urine Blood Urine Nitrite Ur Leukocyte Esterase Urine RBC Urine WBC Ur Squamous Epith Cells Urine Bacteria Salicylates Urine Opiates Screen Urine Fentanyl Screen Acetaminophen Cancelled Ur Barbiturates Screen Ur Phencyclidine Scrn Ur Amphetamines Screen U Benzodiazepines Scrn Urine Cocaine Screen U Marijuana (THC) Screen Ethyl Alcohol < 10 Influenza Type A (PCR) Influenza Type B (PCR) RSV RNA Qual (PCR) SARS-CoV-2 RNA (RT-PCR) 02/09/22 02/09/22 02/09/22 16:49 17:30 17:40 WBC RBC Hgb Hct MCV MCH MCHC RDW Plt Count MPV Immature Gran % (Auto) Neut % (Auto) Lymph % (Auto) [place] % (Auto) Eos % (Auto) Baso % (Auto) Lymph # (Auto) [place] # (Auto) Eos # (Auto) Baso # (Auto) Abs Immat Gran (auto) Absolute Neuts (auto) Absolute Nucleated RBC Nucleated RBC % (auto) PT INR APTT VBG pH VBG pCO2 VBG pO2 VBG HCO3 VBG O2 Saturation VBG Base Excess Sodium Potassium Chloride Carbon Dioxide Anion Gap BUN Creatinine Estim Creat Clear Calc Estimated GFR Random Glucose Lactic Acid Lactic Acid F/U @ 2Hr Lactic Acid F/U @ 4Hr Calcium Phosphorus Magnesium Total Bilirubin Direct Bilirubin AST ALT Alkaline Phosphatase Total Protein Albumin Lipase Urine Color Urine Appearance Urine pH Ur Specific [place] Urine Protein Urine Glucose (UA) Urine Ketones Urine Blood Urine Nitrite Ur Leukocyte Esterase Urine RBC Urine WBC Ur Squamous Epith Cells Urine Bacteria Salicylates Urine Opiates Screen Not Detected Urine Fentanyl Screen Not Detected Acetaminophen 330 H* Ur Barbiturates Screen Not Detected Ur Phencyclidine Scrn Not Detected Ur Amphetamines Screen Not Detected U Benzodiazepines Scrn Not Detected Urine Cocaine Screen Not Detected U Marijuana (THC) Screen Not Detected Ethyl Alcohol Influenza Type A (PCR) NEGATIVE Influenza Type B (PCR) NEGATIVE RSV RNA Qual (PCR) NEGATIVE SARS-CoV-2 RNA (RT-PCR) NEGATIVE 02/09/22 02/09/22 02/09/22 17:40 19:24 21:01 WBC RBC Hgb Hct MCV MCH MCHC RDW Plt Count MPV Immature Gran % (Auto) Neut % (Auto) Lymph % (Auto) [place] % (Auto) Eos % (Auto) Baso % (Auto) Lymph # (Auto) [place] # (Auto) Eos # (Auto) Baso # (Auto) Abs Immat Gran (auto) Absolute Neuts (auto) Absolute Nucleated RBC Nucleated RBC % (auto) PT INR APTT VBG pH VBG pCO2 VBG pO2 VBG HCO3 VBG O2 Saturation VBG Base Excess Sodium Potassium Chloride Carbon Dioxide Anion Gap BUN Creatinine Estim Creat Clear Calc Estimated GFR Random Glucose Lactic Acid Lactic Acid F/U @ 2Hr 2.8 H* Lactic Acid F/U @ 4Hr Calcium Phosphorus Magnesium 2.2 Total Bilirubin Direct Bilirubin AST ALT Alkaline Phosphatase Total Protein Albumin Lipase Urine Color YELLOW Urine Appearance CLEAR Urine pH 5.5 Ur Specific [place] >= 1.030 H Urine Protein NEG Urine Glucose (UA) NEG Urine Ketones NEG Urine Blood 3+ H Urine Nitrite NEG Ur Leukocyte Esterase NEG Urine RBC 10-14 H Urine WBC 0 Ur Squamous Epith Cells TRACE Urine Bacteria NONE Salicylates Urine Opiates Screen Urine Fentanyl Screen Acetaminophen 245 H* Ur Barbiturates Screen Ur Phencyclidine Scrn Ur Amphetamines Screen U Benzodiazepines Scrn Urine Cocaine Screen U Marijuana (THC) Screen Ethyl Alcohol Influenza Type A (PCR) Influenza Type B (PCR) RSV RNA Qual (PCR) SARS-CoV-2 RNA (RT-PCR) 02/09/22 02/10/22 02/10/22 21:39 05:28 05:28 WBC 6.6 RBC 4.63 Hgb 13.4 Hct 40.7 MCV 87.9 MCH 28.9 MCHC 32.9 RDW 13.2 Plt Count 267 MPV 10.0 Immature Gran % (Auto) 0.5 H Neut % (Auto) 61.1 Lymph % (Auto) 27.5 [place] % (Auto) 7.3 Eos % (Auto) 3.0 Baso % (Auto) 0.6 Lymph # (Auto) 1.8 [place] # (Auto) 0.5 Eos # (Auto) 0.2 Baso # (Auto) 0.0 Abs Immat Gran (auto) 0.03 Absolute Neuts (auto) 4.1 Absolute Nucleated RBC 0.000 Nucleated RBC % (auto) 0.0 PT INR APTT VBG pH VBG pCO2 VBG pO2 VBG HCO3 VBG O2 Saturation VBG Base Excess Sodium 137 Potassium 3.4 Chloride 107 Carbon Dioxide 22 Anion Gap 11 L BUN 4 L Creatinine 0.72 Estim Creat Clear Calc 122.8 Estimated GFR > 60 Random Glucose 111 Lactic Acid Lactic Acid F/U @ 2Hr Lactic Acid F/U @ 4Hr 2.0 Calcium 8.5 Phosphorus 3.0 Magnesium 2.1 Total Bilirubin 0.2 Direct Bilirubin AST 15 ALT 16 Alkaline Phosphatase 83 Total Protein 6.3 L Albumin 3.8 Lipase Urine Color Urine Appearance Urine pH Ur Specific [place] Urine Protein Urine Glucose (UA) Urine Ketones Urine Blood Urine Nitrite Ur Leukocyte Esterase Urine RBC Urine WBC Ur Squamous Epith Cells Urine Bacteria Salicylates Urine Opiates Screen Urine Fentanyl Screen Acetaminophen 46 H Ur Barbiturates Screen Ur Phencyclidine Scrn Ur Amphetamines Screen U Benzodiazepines Scrn Urine Cocaine Screen U Marijuana (THC) Screen Ethyl Alcohol Influenza Type A (PCR) Influenza Type B (PCR) RSV RNA Qual (PCR) SARS-CoV-2 RNA (RT-PCR) 02/10/22 05:32 WBC RBC Hgb Hct MCV MCH MCHC RDW Plt Count MPV Immature Gran % (Auto) Neut % (Auto) Lymph % (Auto) [place] % (Auto) Eos % (Auto) Baso % (Auto) Lymph # (Auto) [place] # (Auto) Eos # (Auto) Baso # (Auto) Abs Immat Gran (auto) Absolute Neuts (auto) Absolute Nucleated RBC Nucleated RBC % (auto) PT INR APTT VBG pH 7.38 VBG pCO2 34 VBG pO2 46 VBG HCO3 20 L VBG O2 Saturation 74.0 VBG Base Excess -3.8 Sodium Potassium Chloride Carbon Dioxide Anion Gap BUN Creatinine Estim Creat Clear Calc Estimated GFR Random Glucose Lactic Acid Lactic Acid F/U @ 2Hr Lactic Acid F/U @ 4Hr Calcium Phosphorus Magnesium Total Bilirubin Direct Bilirubin AST ALT Alkaline Phosphatase Total Protein Albumin Lipase Urine Color Urine Appearance Urine pH Ur Specific [place] Urine Protein Urine Glucose (UA) Urine Ketones Urine Blood Urine Nitrite Ur Leukocyte Esterase Urine RBC Urine WBC Ur Squamous Epith Cells Urine Bacteria Salicylates Urine Opiates Screen Urine Fentanyl Screen Acetaminophen Ur Barbiturates Screen Ur Phencyclidine Scrn Ur Amphetamines Screen U Benzodiazepines Scrn Urine Cocaine Screen U Marijuana (THC) Screen Ethyl Alcohol Influenza Type A (PCR) Influenza Type B (PCR) RSV RNA Qual (PCR) SARS-CoV-2 RNA (RT-PCR) Progress Note: A&P Assessment and plan (1) Acetaminophen overdose: Status: Acute (2) Suicide attempt: Status: Acute (3) Borderline personality disorder: Status: Chronic (4) Depression: Status: Acute (5) Diabetes type 2, controlled: Status: Acute Plan Assessment: 46-year-old lady with underlying history of several prior suicide attempts admitted with intentional Tylenol overdose, treated acetylcysteine protocol, now improved significantly. Plan: Neuro: No acute issues. Cardiac: No acute issues. Pulmonary: No acute issues. Renal: No acute issues. Endo: No acute issues. Underlying diabetes mellitus. GI: Intentional Tylenol overdose, status post activated charcoal administration and acidosis stain protocol. Poison Control contacted by ER. Initial Tylenol level of 300, now down to 45 this a.m.. Minimal increase in transaminases. Follow-up coagulation panel is pending. ID: No acute issues Heme/Onc: No acute issues. Psych: Suicide attempt, continue on one-to-one observation, psychiatric evaluation after medical clearance. Miscellaneous: No acute issues. Prophylaxis: Heparin Diet: Diabetic Quality Stroke Does the patient have a stroke diagnosis?: No VTE Prior VTE?: No VTE Risk Level:: Medical - moderate - high VTE Device Contraindication: Treatment Not Indicated VTE Drug Contraindication: N/A - Med Ordered
[2022-02-10] MEDS: FLUoxetine HCl 20 MG CAPSULE 40 MG PO (09:36)
[2022-02-10] MEDS: Benztropine Mesylate 1 MG TABLET PO ×2 (10:00→22:00)
--- NOTE | 2022-02-10 10:44 | MHC.CM.PN ---
Addendum entered by Meghan Sutherland 02/10/22 10:50: HCP from 2014 reviewed with pt: IMM in chart: Call placed to Toni Pittman at pt's [facility]: no answer x 2 then placed on hold until call terminated. Pt will likely require INPT placement following medical clearance. CM to follow Original Note: Pt presents from [facility] after intentional OD on Tylenol following a dispute with her s.o. Pt states she is independent with all care needs, does not use adaptive equipment but does have weekly sessions with her psychiatrist Dr. Gaspar. She is Pfizer vaxed x 2. Pt asked about transfer to INPT psych which she states she needs real bad Pt may be able to transfer out of ICU later today if her toxicology continues to show improvement. HCP
[2022-02-10 11:35] LABS: Glucose, Whole Blood 109 mg/dL (60-115)
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
[2022-02-10 15:36] LABS: INTERNATIONAL NORM RATIO 1.2 (0.9-1.1); Prothrombin Time 13.2 SEC (9.9-13.0)
[2022-02-10 15:41] LABS: Acetaminophen LAB 9 mcg/mL (<30); Alanine Aminotransferase 14 U/L (0-31); Albumin Level 3.5 g/dL (3.5-5.0); Alkaline Phosphatase 76 U/L (39-117); Aspartate Amino Transferase 12 U/L (5-31); Bilirubin Direct < 0.2 mg/dL (0.0-0.5); Bilirubin Total 0.2 mg/dL (0.0-1.0); Total Protein 5.6 g/dL (6.5-8.0)
[2022-02-10 16:46] LABS: Glucose, Whole Blood 140 mg/dL (60-115)
[2022-02-10] MEDS: LORazepam 1 MG TABLET PO (19:29)
[2022-02-10 21:19] LABS: Glucose, Whole Blood 98 mg/dL (60-115)
[2022-02-10] MEDS: VerapamiL HCL SR 240 MG TABLET.ER PO (21:59)
[2022-02-10] MEDS: Mirtazapine 7.5 MG TABLET PO (22:00)
[2022-02-11] VITALS: BP 145/93; PULSE 72; RESP 16; TEMP 36.5; O2SAT 97
[2022-02-11] MEDS: traZODone HCL 50 MG TABLET 150 MG PO (02:39)
[2022-02-11 03:55] VITALS: BP 176/97; PULSE 69; RESP 16; TEMP 36.4; O2SAT 97
[2022-02-11 05:45] VITALS: BMI 37.8
[2022-02-11 07:44] LABS: Glucose, Whole Blood 105 mg/dL (60-115)
[2022-02-11 08:00] VITALS: BP 145/86; PULSE 72; RESP 18; TEMP 36.6; O2SAT 97; BMI 38.9
[2022-02-11] MEDS: Docusate Sodium 100 MG CAPSULE PO ×2 (09:51→21:13)
[2022-02-11] MEDS: metFORMIN HCl 500 MG TABLET PO ×2 (09:51→21:14)
[2022-02-11] MEDS: FLUoxetine HCl 20 MG CAPSULE 40 MG PO (09:52)
[2022-02-11] MEDS: lisinopriL 5 MG TABLET PO (09:52)
[2022-02-11] MEDS: Benztropine Mesylate 1 MG TABLET PO ×2 (09:52→21:14)
--- NOTE | 2022-02-11 10:17 | MHC.CM.PN ---
CARE TEAM NOTIFIED VIA TIGER OF PATIENT BEING MEDICALLY CLEARED
--- NOTE | 2022-02-11 10:21 | P.DS_ITS ---
DS: Providers Provider Date of Service: 02/13/22 Date of admission: 02/09/22 18:05 Primary care physician: Maribel Marquez NP Consults: 02/09/22 15:55 Consult to Crisis Stat Reason for consultation: overdose Has provider been notified: No 02/10/22 08:25 Consult to Psychiatry Routine Consulting Provider: Psych Covering Reason for consultation: Suicide attempt Has provider been notified: No 02/10/22 09:21 Consult to Psychiatry Routine Consulting Provider: Psych Covering Reason for consultation: auditory hallucinations 02/10/22 17:19 BHN [Consult to Crisis] Stat Reason for consultation: INTENTIONAL TYELENOL OVERDOSE, MEDICALLY READY FOR DISCHARGE Has provider been notified: No DS: Diagnosis Discharge Diagnosis (1) Suicide attempt by acetaminophen overdose: (2) MDD (major depressive disorder), recurrent episode, severe: (3) Borderline personality disorder: Status: Acute (4) PTSD (post-traumatic stress disorder): DS: Summary Hospital Course Hospital Course: 46-year-old lady with underlying history of borderline personality disorder, depression, prior history of suicide attempts admitted on 02/09/2022 approximately 1 now after patient has taking 20 500 mg Tylenol tablets.? Poison Control contacted by emergency room provider.? InitialTylenol level of 300, patient started on acetylcysteine protocol.? Tylenol level as of yesterday was 9 and LFTS were within normal, INR was 1.2 . She has comleted Mucomyst protocol, she has had 1:1 observer. CARE team assessed on multiple occasion and has developped care plan with the patient to return home. She is denying suicidal i deation and anything thought of hurting herself and vow to call crisis if has any issues, we discussed the dangers assoiciated with overdose with any medication particular over the counter medication such as Tylenol, ASA and Motrin and other that can cause serious bodily harm and even ,, she voiced understanding. Time Spent with Patient Time attestation: Total time spent providing and/or coordinating discharge services: Discharge coordination time: Greater than 30 minutes Quality: Safe Use of Opioids Does Pt have an Active Cancer Diagnosis on the Problem List?: No Quality: Stroke Does the patient have a stroke diagnosis?: No Physical Exam Vital Signs: Vital Signs: Selected Entries 02/13/22 11:32 Temperature 98.2 F Pulse Rate 92 Respiratory Rate 16 Blood Pressure 124/73 Pulse Oximetry 98 Const: Other: Seen face to face General: AO X 3, no acute distress Resp: CTA bilateral CVS: S1,S2,RRR GI: +BS, NT, no distention Skin: No rash Neuro: motor grossly intact Psych: appropriate affect DS: Data Data Completed and Pending Labs on day of discharge: Laboratory Results - last 24 hr 02/10/22 02/10/22 02/10/22 11:18 15:18 15:18 PT 13.2 H INR 1.2 H POC Glucose 109 Total Bilirubin 0.2 Direct Bilirubin < 0.2 AST 12 ALT 14 Alkaline Phosphatase 76 Total Protein 5.6 L Albumin 3.5 Acetaminophen 9 02/10/22 02/10/22 02/11/22 16:36 21:14 07:09 PT INR POC Glucose 140 H 98 105 Total Bilirubin Direct Bilirubin AST ALT Alkaline Phosphatase Total Protein Albumin Acetaminophen Discharge Plan Discharge Anticipated Discharge Date/Time: 02/13/22 12:18 Patient Disposition: Home, Self-Care Discharge Diagnosis: Tylenol overdose Referrals: Maribel Marquez NP [Primary Care Provider] - 1 Week Discharge Medications: Continued metformin 500 mg tablet 1 tab PO BID 0RF atorvastatin 10 mg tablet 1 tab PO DAILY 0RF verapamil 240 mg tablet extended release 1 tab PO BEDTIME 0RF montelukast 10 mg tablet 1 tab PO BEDTIME 0RF Flovent HFA 110 mcg/actuation HFA aerosol inhaler 2 puff inhalation BID 0RF albuterol sulfate [Ventolin HFA] 90 mcg/actuation HFA aerosol inhaler 2 puff inhalation Q4H PRN (Reason: Shortness Of Breath) 0RF trazodone 150 mg tablet 150 mg PO BEDTIME PRN (Reason: insomnia) 0RF benztropine 1 mg tablet 1 mg PO BID 0RF naproxen 500 mg tablet 1 tab PO BID 0RF docusate sodium [Colace] 100 mg capsule 100 mg PO BID Qty: 60 0RF fluoxetine 20 mg Capsule 40 mg PO DAILY 30 Days Qty: 60 0RF prazosin 1 mg Capsule 4 mg PO BEDTIME 30 Days Qty: 120 0RF Protocol: Hold for SBP< HOLD for SBP < : 90 mirtazapine 7.5 mg Tablet 7.5 mg PO BEDTIME MRX1 30 Days Qty: 60 0RF lisinopril 5 mg tablet 1 tab PO DAILY 0RF doxycycline monohydrate 100 mg capsule 100 mg PO BID 10 Days Qty: 20 0RF ondansetron 4 mg tablet,disintegrating 4 mg PO Q6-8H PRN (Reason: nausea and vomiting) Qty: 14 0RF Discharge Orders: Discharge Order (Routine); Ordered 02/13/22 Ordered By: Jose Echols Diet: advance to usual diet and diabetic diet Activity on Discharge: As tolerated Stand Alone Forms: Patient Portal Discharge page Care Plan Goals: Suicide prevention Health Concerns: chronic mental illness with recurent suicidal gestures Plan of Treatment: Follow instructions given to you by CARE team and call crisis hot line if you have thoughts about hurting yourself Resume your previous medications Assessment: as above
--- NOTE | 2022-02-11 10:28 | P.PNIM_ITS ---
Subjective Subjective Date of Service: 02/11/22 Interval History: Late entry note for 02/11 f/u on Tylenol OD, labs normal, denies SI at moment and wants to go home Review of Systems no fever , no n/v Physical Exam Vital Signs: Vital Signs: Last Vital Signs Temp 97 F 02/12/22 07:03 Pulse 95 02/12/22 07:03 Resp 18 02/12/22 07:03 BP 120/72 02/12/22 07:03 Pulse Ox 96 02/12/22 07:03 BMI result Body Mass Index 38.5 Const: Other: General: AO X 3, no acute distress Resp: CTA bilateral CVS: S1,S2,RRR GI: +BS, NT, no distention Skin: No rash Neuro: motor grossly intact Psych: appropriate affect Objective Data Active Medications Albuterol Sulfate (Albuterol Sulfate 90 Mcg 8 Gm Inhaler) 2 puff INHALE Q4H PRN PRN Reason: Shortness Of Breath Benztropine Mesylate (Benztropine Mesylate 1 Mg Tablet) 1 mg PO BID [facility] Last Admin: 02/12/22 09:42 Dose: 1 mg Documented by: TAMAR Docusate Sodium (Docusate Sodium 100 Mg Capsule) 100 mg PO BID [facility] Last Admin: 02/12/22 09:42 Dose: 100 mg Documented by: TAMAR Fluoxetine HCl (Fluoxetine Hcl 20 Mg Capsule) 40 mg PO DAILY [facility] Last Admin: 02/12/22 09:42 Dose: 40 mg Documented by: TAMAR Fluticasone Propionate (Fluticasone Propionate 100 Mcg Blst.W.Dev) 2 puff INHALE RBID [facility] Last Admin: 02/12/22 07:10 Dose: Not Given Documented by: TAMAR Non-Admin Reason: prev day order Heparin Sodium (Porcine) (Heparin Sodium,Porcine 5,000 Unit/Ml Vial) 5,000 unit SUBCUT Q8H [facility] Last Admin: 02/12/22 09:42 Dose: 5,000 unit Documented by: TAMAR Insulin Human Lispro (Insulin Lispro 100 Unit/Ml 3 Ml Vial) 0 unit SUBCUT QI DACHS [facility]; Protocol Last Admin: 02/12/22 07:43 Dose: Not Given Documented by: TAMAR Non-Admin Reason: No Insulin Coverage Lisinopril (Lisinopril 5 Mg Tablet) 5 mg PO DAILY [facility]; Protocol Last Admin: 02/12/22 09:42 Dose: 5 mg Documented by: TAMAR Lorazepam (Lorazepam 1 Mg Tablet) 1 mg PO Q6H PRN PRN Reason: Anxiety Last Admin: 02/11/22 13:25 Dose: 1 mg Documented by: NAVNEET Metformin HCl (Metformin Hcl 500 Mg Tablet) 500 mg PO BID [facility] Last Admin: 02/12/22 09:42 Dose: 500 mg Documented by: TAMAR Mirtazapine (Mirtazapine 7.5 Mg Tablet) 7.5 mg PO BEDTIME MRX1 [facility] Last Admin: 02/11/22 21:29 Dose: 7.5 mg Documented by: SAM Montelukast Sodium (Montelukast Sodium 10 Mg Tablet) 10 mg PO BEDTIME [facility] Last Admin: 02/11/22 21:14 Dose: 10 mg Documented by: SAM Prazosin HCl (Prazosin Hcl 1 Mg Capsule) 4 mg PO BEDTIME [facility]; Protocol Last Admin: 02/11/22 21:14 Dose: 4 mg Documented by: SAM Trazodone HCl (Trazodone Hcl 50 Mg Tablet) 150 mg PO BEDTIME PRN PRN Reason: insomnia Last Admin: 02/11/22 02:39 Dose: 150 mg Documented by: TARAN Verapamil HCl (Verapamil Hcl Sr 240 Mg Tablet.Er) 240 mg PO BEDTIME [facility]; Protocol Last Admin: 02/11/22 21:13 Dose: 240 mg Documented by: SAM Labs CBC & Chem 7: 02/10/22 05:28 02/10/22 05:28 Labs: Laboratory Results - last 24 hr 02/11/22 02/11/22 02/11/22 10:54 10:54 10:58 PT 11.5 INR 1.0 APTT POC Glucose 107 Total Bilirubin 0.2 Direct Bilirubin < 0.2 AST 16 ALT 15 Alkaline Phosphatase 86 Total Protein 6.8 D Albumin 4.0 02/11/22 02/12/22 02/12/22 20:14 03:46 03:46 PT 12.3 INR 1.1 APTT 40.5 H POC Glucose 137 H Total Bilirubin 0.4 Direct Bilirubin < 0.2 AST 15 ALT 16 Alkaline Phosphatase 83 Total Protein 6.3 L Albumin 3.9 02/12/22 07:01 PT INR APTT POC Glucose 94 Total Bilirubin Direct Bilirubin AST ALT Alkaline Phosphatase Total Protein Albumin Assessment and Plan (1) Overdose: Status: Acute (2) Diabetes type 2, controlled: Status: Acute (3) Borderline personality disorder: Status: Acute Plan 46-year-old female with underlying history of borderline personality disorder, depression, prior history of suicide attempts admitted on 02/09/2022 after patient has taking 20 500 mg Tylenol tablets.? Poison Control contacted by emergency room provider.? InitialTylenol level of 300, to complete acetylcysteine protocol under supervision of Poison control.? Last Tylenol level normal, LFTs and INR normal and denying SI, ongoing evaluation by CARE team for safe disposition- Continue BP and diabetes meds as well as current Psych meds--Seen by Psych Late entry note for 02/11 Quality Stroke Does the patient have a stroke diagnosis?: No VTE Prior VTE?: No VTE Risk Level:: Medical - moderate - high VTE Device Contraindication: Treatment Not Indicated VTE Drug Contraindication: N/A - Med Ordered
[2022-02-11 11:02] VITALS: BP 152/76; PULSE 65; RESP 18; TEMP 36; O2SAT 96
[2022-02-11 11:34] LABS: Prothrombin Time 11.5 SEC (9.9-13.0)
[2022-02-11 11:57] LABS: Alanine Aminotransferase 15 U/L (0-31); Alkaline Phosphatase 86 U/L (39-117); Aspartate Amino Transferase 16 U/L (5-31); Bilirubin Direct < 0.2 mg/dL (0.0-0.5); Bilirubin Total 0.2 mg/dL (0.0-1.0); Total Protein 6.8 g/dL (6.5-8.0)
[2022-02-11 12:20] LABS: Glucose, Whole Blood 107 mg/dL (60-115)
--- NOTE | 2022-02-11 12:38 | PC.NURSE ---
Acetylcysteine drip is not going to finish at expected time . Pharmacy,MD and nursing painting department supervisor aware.
[2022-02-11] MEDS: LORazepam 1 MG TABLET PO (13:25)
[2022-02-11 16:00] VITALS: BP 160/62; PULSE 79; RESP 20; TEMP 36.5; O2SAT 95
--- NOTE | 2022-02-11 16:05 | MHC.CM.PN ---
THIS COPY MESSENGER REACHED OUT TO CARE SENIOR MECHANICAL DESIGNER CURRENTLY CARE TEAM IS IN THE PROCESS OF WORKING OUT THE FINAL PLAN FOR SAFE DISCHARGE.
--- NOTE | 2022-02-11 17:12 | MHC.CARE ---
Pt is a 45 y/o white [place] speaking female, who is previously known to the CARE Team through prior assessments, ED visits and in patient stays.? On 02/09/22 pt was transported to this facility from home via ambulance for an Acetaminophen overdose.? It is suspected that pt ingested 20, 500mg tablets of acetaminophen.? Pt was treated in the ED, transferred to the ICU, and later to the third floor ([facility]).? Pt has been medically cleared and is being assessed by the CARE Team to determine appropriate treatment recommendations. Pt has an extensive hx of inpt hospitalizations, and is known to engage in unsafe behavior and is unable to self-preserve in the community when decompensated. Past documented hx of Mild major depressive d/o, PTSD, and Borderline personality d/o. Pt has a hx of self-harm and suicide attempts. Pt is alert and oriented x4 and is assessed by CARE Team in her room [facility].? Pt is mildly disheveled in appearance and appears older than her stated age.? Pt stated that on 02/09 she purchased Acetaminophen and too approximately 20 pills, she does not recall what strength the tablets were.? She stated she was hearing voices and ?They were really bad.?? She stated that she had spoken to a housemate and alerted her to the fact that she took a large amount of acetaminophen.? The housemate then advised staff who contacted EMS for a transport.? She denies HI, SI, , and self-harm urges.? She reports her voices are manageable.? She states her sleep and appetite have been ?ok? but she hasn?t slept well in the hospital beds.? She reports her mood as agitated due to her wanting to ?Go home.?? Pt?s mood is initially pleasant, when the topic of speaking with psychiatry and there not being an immediate discharge, she grows agitated and upset stating she intends on eloping if she has to stay.? She becomes tearful and appears fixated on the potential for her to go inpatient although that option had not yet been discussed.? Insight, judgement, memory, and concentration are fair and appear to be at her baseline. Pt appears to be at her baseline at this time. CARE Team consults with psychiatry it operations manager and discusses the incident and the risk assessment conducted.? Psychiatry is in agreement that an inpatient stay would likely not serve the pt well though they did state some concerns with pt?s outpatient providers and question whether a more rigorous outpatient approach would be of benefit. CARE Team contacts pt?s fpc and speaks with the staff member (Sumeet) who was present the evening that pt overdosed.? He stated that to his knowledge there were no triggers or abnormal circumstances that occurred on that day.? He and pt had just had a discussion regarding some positive coping strategies and had prepared a list together.? He did note that pt had an argument with a housemate a couple of days earlier but to the best of his knowledge the two were still on good terms.? Sumeet states that another resident alerted him to the overdose and he contacted EMS for a transport to this facility.? Sumeet notes a backslide in pt?s progress, having done quite well for a couple of months, and then beginning to present frequently to the ED at [place], [facility], and or [facility].? On some days, pt would present at all three.? He has no insight as to the cause of this backslide. CARE Team is waiting to speak with [facility] Install[facility] Toni Pittman before making a final determination on this pt.
--- NOTE | 2022-02-11 17:37 | MHC.CARE ---
CARE Team leave a message for Marketing Strategist Toni Pittman ([phone]) requesting a return phone call.
--- NOTE | 2022-02-11 18:51 | MHC.CARE ---
CARE Team speaks with pt regarding her status. CARE Team is still awaiting a return phone call from the assisted's manager architecture Mr. Pittman before a final disposition can be reached. Pt advised she will be staying the evening. She is unhappy with this and expresses her unhappiness threatening to leave this facility. Pt was advised that she cannot do so until a final disposition is reached and the reasons for this were explained.
[2022-02-11 20:22] LABS: Glucose, Whole Blood 137 mg/dL (60-115)
[2022-02-11] MEDS: Mirtazapine 7.5 MG TABLET PO ×2 (21:13→21:29)
[2022-02-11] MEDS: VerapamiL HCL SR 240 MG TABLET.ER PO (21:13)
[2022-02-11] MEDS: Montelukast Sodium 10 MG TABLET PO (21:14)
[2022-02-11] MEDS: Prazosin HCL 1 MG CAPSULE 4 MG PO (21:14)
[2022-02-11 23:45] VITALS: BP 154/60; PULSE 70; RESP 20; TEMP 36.6; O2SAT 96
[2022-02-12 04:03] LABS: INTERNATIONAL NORM RATIO 1.1 (0.9-1.1); Prothrombin Time 12.3 SEC (9.9-13.0)
[2022-02-12 04:06] LABS: Partial Thromboplastin Time 40.5 SEC (24.1-38.0)
[2022-02-12 04:14] LABS: Alanine Aminotransferase 16 U/L (0-31); Albumin Level 3.9 g/dL (3.5-5.0); Alkaline Phosphatase 83 U/L (39-117); Aspartate Amino Transferase 15 U/L (5-31); Bilirubin Direct < 0.2 mg/dL (0.0-0.5); Bilirubin Total 0.4 mg/dL (0.0-1.0); Total Protein 6.3 g/dL (6.5-8.0)
[2022-02-12 06:00] VITALS: BMI 38.8
[2022-02-12 07:03] VITALS: BP 120/72; PULSE 95; RESP 18; TEMP 36.1; O2SAT 96
[2022-02-12 07:08] LABS: Glucose, Whole Blood 94 mg/dL (60-115)
[2022-02-12 07:11] VITALS: BMI 38.5
--- NOTE | 2022-02-12 07:17 | MHC.CARE ---
CARE Team contacts Vini Leach as [facility] Open Pit Quarry Supervisor Maximo Pittman has not contacted CARE Team yet regarding pt. CARE Team requests additional information on contacts (Mr. Pittman's specialty plant supervisor etc.) Vini Leach staff are unable to provide such information.
[2022-02-12] MEDS: Docusate Sodium 100 MG CAPSULE PO ×2 (09:42→23:35)
[2022-02-12] MEDS: lisinopriL 5 MG TABLET PO (09:42)
[2022-02-12] MEDS: FLUoxetine HCl 20 MG CAPSULE 40 MG PO (09:42)
[2022-02-12] MEDS: Heparin Sodium,Porcine 5,000 UNIT/ML VIAL 5000 UNIT SUBCUT (09:42)
[2022-02-12] MEDS: Benztropine Mesylate 1 MG TABLET PO ×2 (09:42→23:35)
[2022-02-12] MEDS: metFORMIN HCl 500 MG TABLET PO ×2 (09:42→23:35)
--- NOTE | 2022-02-12 10:20 | HO.PM.IMPN ---
Subjective Subjective Date of Service: 02/12/22 Interval History: f/u on Tylenol OD, labs normal, denies SI at moment Review of Systems no fever , no n/v Physical Exam Vital Signs: Vital Signs: Last Vital Signs Temp 97 F 02/12/22 07:03 Pulse 95 02/12/22 07:03 Resp 18 02/12/22 07:03 BP 120/72 02/12/22 07:03 Pulse Ox 96 02/12/22 07:03 BMI result Body Mass Index 38.5 Const: Other: General: AO X 3, no acute distress Resp: CTA bilateral CVS: S1,S2,RRR GI: +BS, NT, no distention Skin: No rash Neuro: motor grossly intact Psych: appropriate affect Objective Data Active Medications Albuterol Sulfate (Albuterol Sulfate 90 Mcg 8 Gm Inhaler) 2 puff INHALE Q4H PRN PRN Reason: Shortness Of Breath Benztropine Mesylate (Benztropine Mesylate 1 Mg Tablet) 1 mg PO BID [facility] Last Admin: 02/12/22 09:42 Dose: 1 mg Documented by: TAMAR Docusate Sodium (Docusate Sodium 100 Mg Capsule) 100 mg PO BID [facility] Last Admin: 02/12/22 09:42 Dose: 100 mg Documented by: TAMAR Fluoxetine HCl (Fluoxetine Hcl 20 Mg Capsule) 40 mg PO DAILY [facility] Last Admin: 02/12/22 09:42 Dose: 40 mg Documented by: TAMAR Fluticasone Propionate (Fluticasone Propionate 100 Mcg Blst.W.Dev) 2 puff INHALE RBID [facility] Last Admin: 02/12/22 07:10 Dose: Not Given Documented by: TAMAR Non-Admin Reason: prev day order Heparin Sodium (Porcine) (Heparin Sodium,Porcine 5,000 Unit/Ml Vial) 5,000 unit SUBCUT Q8H [facility] Last Admin: 02/12/22 09:42 Dose: 5,000 unit Documented by: TAMAR Insulin Human Lispro (Insulin Lispro 100 Unit/Ml 3 Ml Vial) 0 unit SUBCUT QIDACHS [facility]; Protocol Last Admin: 02/12/22 07:43 Dose: Not Given Documented by: TAMAR Non-Admin Reason: No Insulin Coverage Lisinopril (Lisinopril 5 Mg Tablet) 5 mg PO DAILY [facility]; Protocol Last Admin: 02/12/22 09:42 Dose: 5 mg Documented by: TAMAR Lorazepam (Lorazepam 1 Mg Tablet) 1 mg PO Q6H PRN PRN Reason: Anxiety Last Admin: 02/11/22 13:25 Dose: 1 mg Documented by: NAVNEET Metformin HCl (Metformin Hcl 500 Mg Tablet) 500 mg PO BID [facility] Last Admin: 02/12/22 09:42 Dose: 500 mg Documented by: TAMAR Mirtazapine (Mirtazapine 7.5 Mg Tablet) 7.5 mg PO BEDTIME MRX1 [facility] Last Admin: 02/11/22 21:29 Dose: 7.5 mg Documented by: SAM Montelukast Sodium (Montelukast Sodium 10 Mg Tablet) 10 mg PO BEDTIME [facility] Last Admin: 02/11/22 21:14 Dose: 10 mg Documented by: SAM Prazosin HCl (Prazosin Hcl 1 Mg Capsule) 4 mg PO BEDTIME [facility]; Protocol Last Admin: 02/11/22 21:14 Dose: 4 mg Documented by: SAM Trazodone HCl (Trazodone Hcl 50 Mg Tablet) 150 mg PO BEDTIME PRN PRN Reason: insomnia Last Admin: 02/11/22 02:39 Dose: 150 mg Documented by: TARAN Verapamil HCl (Verapamil Hcl Sr 240 Mg Tablet.Er) 240 mg PO BEDTIME [facility]; Protocol Last Admin: 02/11/22 21:13 Dose: 240 mg Documented by: SAM Labs CBC & Chem 7: 02/10/22 05:28 02/10/22 05:28 Labs: Laboratory Results - last 24 hr 02/11/22 02/11/22 02/11/22 10:54 10:54 10:58 PT 11.5 INR 1.0 APTT POC Glucose 107 Total Bilirubin 0.2 Direct Bilirubin < 0.2 AST 16 ALT 15 Alkaline Phosphatase 86 Total Protein 6.8 D Albumin 4.0 02/11/22 02/12/22 02/12/22 20:14 03:46 03:46 PT 12.3 INR 1.1 APTT 40.5 H POC Glucose 137 H Total Bilirubin 0.4 Direct Bilirubin < 0.2 AST 15 ALT 16 Alkaline Phosphatase 83 Total Protein 6.3 L Albumin 3.9 02/12/22 07:01 PT INR APTT POC Glucose 94 Total Bilirubin Direct Bilirubin AST ALT Alkaline Phosphatase Total Protein Albumin Assessment and Plan (1) Overdose: Status: Acute (2) Diabetes type 2, controlled: Status: Acute (3) Borderline personality disorder: Status: Acute Plan 46-year-old female with underlying history of borderline personality disorder, depression, prior history of suicide attempts admitted on 02/09/2022 after patient has taking 20 500 mg Tylenol tablets.? Poison Control contacted by emergency room provider.? InitialTylenol level of 300, patient has completed acetylcysteine protocol under supervision of Poison control.? Last Tylenol level normal, LFTs and INR normal and denying SI, ongoing evaluation by CARE team for safe disposition- Continue BP and diabetes meds as well as current Psych meds Quality Stroke Does the patient have a stroke diagnosis?: No VTE Prior VTE?: No VTE Risk Level:: Medical - moderate - high VTE Device Contraindication: Treatment Not Indicated VTE Drug Contraindication: N/A - Med Ordered
[2022-02-12 11:05] VITALS: BP 130/82; PULSE 110; RESP 18; TEMP 36.1
[2022-02-12 11:39] LABS: Glucose, Whole Blood 125 mg/dL (60-115)
[2022-02-12] MEDS: LORazepam 1 MG TABLET PO (14:25)
--- NOTE | 2022-02-12 14:27 | MHC.CM.PN ---
CM MET W/SCHUYLER FROM [facility] TO DISCUSS PSYCH CONSULT REC'S PT GO TO INPT PSYCH HOWEVER SCHUYLER REPORTS PT IS NO LONGER HAVING SI AND IS CLEARED FOR D/C HOME HOWEVER [facility] DOES NOT WANT PT D/C'D UNTIL COFIRMED W/BATCH MIXER D/T TYLENOL OD WHICH IS NOT PT'S TYPICAL PRESENTATION.
--- NOTE | 2022-02-12 14:42 | MHC.CARE ---
CARE Team meets with pt to update her on her status.? CARE Team has been unable to contact the Engineering Inspection Assistant, Mr. Pittman.? Upon consulting with CARE Black Studies Professor it was determined that prior to sending pt back to the , Mr. Pittman would be contacted to solicit his feedback.? This was explained to the patient who quickly escalated in the common area of the unit and threw a cup of coffee.? She then stormed to her room and threw her dinner tray, breaking the dish and scattering debris throughout the room.? Pt grew verbally abusive towards this senior underwriter.? Pt was advised that the conversation could only continue if she were able to regain behavioral control.? This senior underwriter then excused himself from the conversation.? Due to pt?s display, staff contacted Security to respond for a stand by. CARE Team recommends that pt?s meals be delivered in ?Clamshells? with plastic flatware (No knives) from this point of due to safety concerns.? Pt does have a hx of self-harming behavior, often using broken shards of coffee mugs or other similar items. CARE Team will continue their efforts to resolve this situation.
--- NOTE | 2022-02-12 15:04 | MHC.CM.PN ---
THIS CM HAS CALLED PT'S GH AT 3:01PM [phone] TO REQUEST NUMBER FOR ON-CALL TESTING MANAGER HOWEVER NO ANSWER, MESSAGE LEFT W/CM CONTACT INFO, CM ALSO ATTEMPTED TO TAILOR HELPER VENTURA BOB AT 2:58PM [phone], NO ANSWER AND MESSAGE LEFT W/CM CONTACT INFO.
[2022-02-12 16:00] VITALS: BP 117/76; PULSE 102; RESP 18; TEMP 36.3; O2SAT 96
[2022-02-12 16:47] LABS: Glucose, Whole Blood 94 mg/dL (60-115)
[2022-02-12] MEDS: Prazosin HCL 1 MG CAPSULE 4 MG PO (23:35)
[2022-02-12] MEDS: Montelukast Sodium 10 MG TABLET PO (23:35)
[2022-02-12] MEDS: traZODone HCL 50 MG TABLET 150 MG PO (23:35)
[2022-02-12] MEDS: VerapamiL HCL SR 240 MG TABLET.ER PO (23:35)
[2022-02-12] MEDS: Mirtazapine 7.5 MG TABLET PO ×2 (23:36)
[2022-02-12 23:58] VITALS: BP 130/78; PULSE 95; RESP 17; TEMP 36.3; O2SAT 97
--- NOTE | 2022-02-13 02:13 | PC.NURSE ---
Pt noted at shift change walking with sitter around the hallway back and forth frequently, pt is alert and oriented, later noted pt became agitated and increasingly anxious and wanting to leave the hospital, pt got dress and unredirectible, pt at this time refusing meds and POC, security was called, made aware as pt doesn't have a section [address], Dr[address] Mcfarland said to contact CARE team, water plant pump operator supervisor made aware, Section 12 docu now in the pt's chart, pt was made aware that she can't leave, pt still feeling upset, reapproached pt later with meds and complied, went to sleep after, sitter remained in the room.
[2022-02-13 04:00] VITALS: BP 119/74; PULSE 74; RESP 18; TEMP 36.4; O2SAT 95
[2022-02-13 07:30] VITALS: BP 116/69; PULSE 105; RESP 18; TEMP 36.2; O2SAT 98
[2022-02-13 07:39] LABS: Glucose, Whole Blood 169 mg/dL (60-115)
[2022-02-13] MEDS: FLUoxetine HCl 20 MG CAPSULE 40 MG PO (07:47)
[2022-02-13] MEDS: Docusate Sodium 100 MG CAPSULE PO (07:47)
[2022-02-13] MEDS: metFORMIN HCl 500 MG TABLET PO (07:47)
[2022-02-13] MEDS: lisinopriL 5 MG TABLET PO (07:48)
[2022-02-13] MEDS: Insulin Lispro 100 UNIT/ML 3 ML VIAL SUBCUT (07:48)
[2022-02-13] MEDS: Benztropine Mesylate 1 MG TABLET PO (07:48)
--- NOTE | 2022-02-13 10:05 | HO.PM.IMPN ---
Subjective Subjective Date of Service: 02/13/22 Interval History: f/u on Tylenol OD, labs normal, denies SI at moment and wants to go home Review of Systems no fever , no n/v Physical Exam Vital Signs: Vital Signs: Last Vital Signs Temp 97.1 F 02/13/22 07:30 Pulse 105 H 02/13/22 07:30 Resp 18 02/13/22 07:30 BP 116/69 02/13/22 07:30 Pulse Ox 98 02/13/22 07:30 BMI result Body Mass Index 38.5 Const: Other: General: AO X 3, no acute distress Resp: CTA bilateral CVS: S1,S2,RRR GI: +BS, NT, no distention Skin: No rash Neuro: motor grossly intact Psych: appropriate affect Objective Data Active Medications Albuterol Sulfate (Albuterol Sulfate 90 Mcg 8 Gm Inhaler) 2 puff INHALE Q4H PRN PRN Reason: Shortness Of Breath Benztropine Mesylate (Benztropine Mesylate 1 Mg Tablet) 1 mg PO BID [facility] Last Admin: 02/13/22 07:48 Dose: 1 mg Documented by: DAVID Docusate Sodium (Docusate Sodium 100 Mg Capsule) 100 mg PO BID [facility] Last Admin: 02/13/22 07:47 Dose: 100 mg Documented by: DAVID Fluoxetine HCl (Fluoxetine Hcl 20 Mg Capsule) 40 mg PO DAILY [facility] Last Admin: 02/13/22 07:47 Dose: 40 mg Documented by: DAVID Fluticasone Propionate (Fluticasone Propionate 100 Mcg Blst.W.Dev) 2 puff INHALE RBID [facility] Last Admin: 02/13/22 00:24 Dose: Not Given Documented by: YADIRA Non-Admin Reason: Patient Refused Heparin Sodium (Porcine) (Heparin Sodium,Porcine 5,000 Unit/Ml Vial) 5,000 unit SUBCUT Q8H [facility] Last Admin: 02/13/22 02:20 Dose: Not Given Documented by: YADIRA Non-Admin Reason: Patient Refused Insulin Human Lispro (Insulin Lispro 100 Unit/Ml 3 Ml Vial) 0 unit SUBCUT QIDACHS [facility]; Protocol Last Admin: 02/13/22 07:48 Dose: 2 unit Documented by: DAVID Lisinopril (Lisinopril 5 Mg Tablet) 5 mg PO DAILY [facility]; Protocol Last Admin: 02/13/22 07:48 Dose: 5 mg Documented by: DAVID Lorazepam (Lorazepam 1 Mg Tablet) 1 mg PO Q6H PRN PRN Reason: Anxiety Last Admin: 02/12/22 14:25 Dose: 1 mg Documented by: YESIKA Metformin HCl (Metformin Hcl 500 Mg Tablet) 500 mg PO BID [facility] Last Admin: 02/13/22 07:47 Dose: 500 mg Documented by: DAVID Mirtazapine (Mirtazapine 7.5 Mg Tablet) 7.5 mg PO BEDTIME MRX1 [facility] Last Admin: 02/12/22 23:36 Dose: 7.5 mg Documented by: YADIRA Montelukast Sodium (Montelukast Sodium 10 Mg Tablet) 10 mg PO BEDTIME [facility] Last Admin: 02/12/22 23:35 Dose: 10 mg Documented by: YADIRA Prazosin HCl (Prazosin Hcl 1 Mg Capsule) 4 mg PO BEDTIME [facility]; Protocol Last Admin: 02/12/22 23:35 Dose: 4 mg Documented by: YADIRA Trazodone HCl (Trazodone Hcl 50 Mg Tablet) 150 mg PO BEDTIME PRN PRN Reason: insomnia Last Admin: 02/12/22 23:35 Dose: 150 mg Documented by: YADIRA Verapamil HCl (Verapamil Hcl Sr 240 Mg Tablet.Er) 240 mg PO BEDTIME [facility]; Protocol Last Admin: 02/12/22 23:35 Dose: 240 mg Documented by: YADIRA Labs CBC & Chem 7: 02/10/22 05:28 02/10/22 05:28 Labs: Laboratory Results - last 24 hr 02/12/22 02/12/22 02/13/22 11:33 16:42 07:28 POC Glucose 125 H 94 169 H Assessment and Plan (1) Overdose: Status: Acute (2) Diabetes type 2, controlled: Status: Acute (3) Borderline personality disorder: Status: Acute Plan 46-year-old female with underlying history of borderline personality disorder, depression, prior history of suicide attempts admitted on 02/09/2022 after patient has taking 20 500 mg Tylenol tablets.? Poison Control contacted by emergency room provider.? InitialTylenol level of 300, to complete acetylcysteine protocol under supervision of Poison control.? Last Tylenol level normal, LFTs and INR normal and denying SI, ongoing evaluation by CARE team for safe disposition- Continue BP and diabetes meds as well as current Psych meds--Seen by Psych. Hopefully discharge today continuing staty: Awaiting Psych disposition Quality Stroke Does the patient have a stroke diagnosis?: No VTE Prior VTE?: No VTE Risk Level:: Medical - moderate - high VTE Device Contraindication: Treatment Not Indicated VTE Drug Contraindication: N/A - Med Ordered
--- NOTE | 2022-02-13 10:54 | MHC.CARE ---
CARE Team spring internship met with pt under supervision of clinical supervisor real estate office, Kait Apodaca [facility], to check in and discuss potential plan for discharge today. Pt was observed walking in the hallway with her patient observer when this sports book writer approached. Pt was dressed in her own clothing and hair was somewhat disheveled. Pt presented with flat affect and reported her mood to be anxious and wanting to discharge. Thought process was logical and organized, pt displayed increased insight about her behaviors the other day and was able to discuss more adaptive ways of coping with anger and racing thoughts. Pt engaged in humor with this sports book writer and engaged pleasantly for the duration of the interaction. Pt reflected on her behavioral outburst a few days ago and stated the CARE membership sales advisor who met with her pissed her off due to stating that the group leader, Toni Pittman, needed to be contacted before moving forward with discharge. Pt reported that it was another personality that came out the other night when she was throwing trays and threatening to elope. Pt reported that crisis states come on so fast, one moment she feels fine and the next she is having command auditory hallucinations to harm herself. Pt reported that prior to her behavioral episode she had two difficult phone calls with assisted staff which left her feeling frustrated. Pt was upset that she has not been able to have personal items to help her cope and is craving a cigarette, which increases her agitation. Pt reported that she has not been getting her PRN of Thorazine while hospitalized, which typically helps decrease her anxiety and agitation. Pt expressed the desire to discharge from the hospital as soon as possible and feels safe to return home at this time. Pt identified that her assisted staff, Radha, is a positive support and pt plans to spend some time coloring with her after discharge from the hospital. Pt identified that she can also listen to music, which is calming for her, and needs to put away groceries that are in her room from a shopping trip prior to admission. Pt denied having any sharps or harmful items in her groceries or her bedroom at home. CARE Team spring internship spoke with Toni Coon at [facility] to discuss discharging pt home today. Toni is in agreement with discharge. This sports book writer provided a brief update of pt's hospital course and discussed pt's presentation during this morning's check in. Toni stated that pt can return home any time today. CARE extrusion press supervisor, Kait Apodaca, then spoke with Toni to finalize discharge.
[2022-02-13 11:32] VITALS: BP 124/73; PULSE 92; RESP 16; TEMP 36.8; O2SAT 98
[2022-02-13 11:39] LABS: Glucose, Whole Blood 98 mg/dL (60-115)
--- NOTE | 2022-02-13 11:59 | MHC.CARE ---
CARE Team reviews pt's case. Pt is very familiar to TW and TW is in consistent contact with outpatient providers. Pt was admitted to medicine after intentional ingestion of Tylenol. Pt has a history of borderline personality disorder second to severe trauma in childhood. Pt has been advocating to discharge back to her [facility] and has been voicing that she feels that she can be safe while in the penitentiary. Risk to self is chronic and not seemingly mitigated by inpatient psychiatric admission. CARE Team speaks with [facility], who does not feel pt should be admitted to in psych at this time, not feeling that this would have a benefit to pt. Ingestion of Tylenol was followed by rescue behavior; informing staff at penitentiary about what she had done. CARE Team also speaks with Lola Patricio psychologist private practice, and attending Dr. Echols who are both in agreement with plan for discharge back to penitentiary.
--- NOTE | 2022-02-13 13:09 | MHC.CM.PN ---
Addendum entered by Dahlia Mcmahon 02/13/22 14:28: CM SAW PT TO [facility] AND ATTEMPTED TO CONTACT [facility] STAFF AT BOTH NUMBERS IN CHART ([phone] AND [phone]) TO INFORM THEM SHE WAS ON HER WAY. A VM MESSAGE WAS LEFT AT BOTH NUMBERS Addendum entered by Dahlia Mcmahon 02/13/22 13:13: CM RECEIVED A MESSAGE THAT THE BOAT JOINER HELPER CANCELED [facility] TRANSPORT ARRANGED. NURSE INFORMED THEY WOULD BE HERE IN 45 MINUTES TO ONE HOUR AND WOULD CALL CM WHEN THEY ARRIVE Original Note: CM RECEIVED A MESSAGE THAT THIS PT WAS CLEARED TO RETURN TO HER [facility]M TODAY AND THAT THE CARE TEAM HAD COORDINATED THIS RETURN WITH THE HOME HOWEVER PT DID NOT HAVE TRANSPORTATION ARRANGED. LYFT ARRANGED FOR PT. PT AND NURSE ARE AWARE.
== END 2022-02-13 14:00 | disposition home or self-care (01) | DRG 918 ==
LOC: HO.ED 18:21 → HO.EDOVER 18:25 → HO.ICU 18:32 → HO.S3 02-10 15:09
PROVIDERS: Family Medicine; Nurse Practitioner Family; Physician Assistant; Admitting Provider Internal Medicine Pulmonary Disease; Emergency Provider Internal Medicine; PCP Nurse Practitioner Family; Visit Provider Internal Medicine
DX: T39.1X2A Poisoning by 4-Aminophenol derivatives, intentional self-harm, initial encounter (principal); R45.851 Suicidal ideations; F33.2 Major depressive disorder, recurrent severe without psychotic features; F17.210 Nicotine dependence, cigarettes, uncomplicated; Z71.6 Tobacco abuse counseling; F60.3 Borderline personality disorder; F43.10 Post-traumatic stress disorder, unspecified; E83.42 Hypomagnesemia; Z20.822 Contact with and (suspected) exposure to COVID-19; Z91.013 Allergy to seafood; Z91.52 Personal history of nonsuicidal self-harm; Z91.51 Personal history of suicidal behavior; Z88.0 Allergy status to penicillin; Z88.2 Allergy status to sulfonamides; Z88.8 Allergy status to other drugs, medicaments and biological substances; Z79.84 Long term (current) use of oral hypoglycemic drugs; Z79.899 Other long term (current) drug therapy
CPT/HCPCS: 0241U; 36415; 71045; 71046; 74018; 80048; 80053; 80076; 80143; 80179; 80307; 81001; 82077; 82803; 82947; 83605; 83690; 83735; 84100; 85025; 85610; 85730; 87635; 93005; 96361; 96365; 96375; 99283; 99285; 99291; 99292; J0132; J2060; J3230; J3475

== ENCOUNTER 2022-02-14 21:58 | Emergency (ER) | payer MEDICARE, MEDICAID, SELFPAY ==
[2022-02-14 22:06] VITALS: BP 144/93; PULSE 103; RESP 18; TEMP 37.3; O2SAT 97; BMI 39.8
--- NOTE | 2022-02-14 22:12 | ED.PSYCH ---
HPI - Psych General Chief Complaint: Psychiatric Symptoms Stated Complaint: crisis Time Seen by Provider: 02/14/22 22:09 Source: patient and EMS Mode of arrival: EMS Limitations: no limitations History of Present Illness HPI Narrative: 46-year-old female past medical history borderline personality disorder, depression, anxiety, bipolar 2 with melancholic features, PTSD, DM, GERD presents to the ED with complaints of I am feeling angry and I am hearing voices. Patient tells me that she got angry at the residential, started throwing things which is very unlike her she says in started hearing voices telling her to overdose again. Patient tells me she is not having tactile hallucinations. She denies drugs, alcohol and tobacco. Denies homicidal ideation and suicidal ideation at this time. Denies any medical complaints MD complaint: anxiety History of same: Yes Relieving factors: none Exacerbating factors: none Associated psychiatric symptoms: none Associated symptoms: denies other symptoms Treatments prior to arrival: none Related Data Home Medications Medication Instructions Recorded Confirmed atorvastatin 10 mg tablet 1 tab PO DAILY 05/29/21 02/09/22 fluticasone propionate 110 2 puff INHALATION BID 05/29/21 02/09/22 mcg/actuation HFA aerosol inhaler (Flovent HFA) metformin 500 mg tablet 1 tab PO BID 05/29/21 02/09/22 montelukast 10 mg tablet 1 tab PO BEDTIME 05/29/21 02/09/22 verapamil 240 mg tablet,extended 1 tab PO BEDTIME 05/29/21 02/09/22 release albuterol sulfate 90 mcg/actuation 2 puff INHALATION Q4H PRN 06/15/21 02/09/22 aerosol inhaler (Ventolin HFA) trazodone 150 mg tablet 150 mg PO BEDTIME PRN 11/05/21 02/09/22 lisinopril 5 mg tablet 1 tab PO DAILY 11/14/21 02/09/22 benztropine 1 mg tablet 1 mg PO BID 12/26/21 02/09/22 naproxen 500 mg tablet 1 tab PO BID 01/23/22 02/09/22 Previous Rx's Medication Instructions Recorded fluoxetine 20 mg capsule 40 mg PO DAILY 30 Days #60 cap 09/29/21 mirtazapine 7.5 mg tablet 7.5 mg PO BEDTIME MRX1 30 Days #60 10/18/21 tab prazosin 1 mg capsule 4 mg PO BEDTIME 30 Days #120 cap 10/18/21 doxycycline monohydrate 100 mg 100 mg PO BID 10 Days #20 cap 02/04/22 capsule ondansetron 4 mg disintegrating 4 mg PO Q6-8H PRN #14 tab 02/04/22 tablet docusate sodium 100 mg capsule 100 mg PO BID #60 cap 02/07/22 (Colace) Allergies Allergy/AdvReac Type Severity Reaction Status Date / Time Fish Containing Products Allergy Severe ANAPHYLAXIS Verified 01/26/22 10:18 codeine [Codeine] Allergy Unknown RASH Verified 01/26/22 10:18 Penicillins Allergy Unknown RASH Verified 01/26/22 10:18 prednisone [Prednisone] Allergy Unknown RASH Verified 01/26/22 10:18 Sulfa (Sulfonamide Allergy Unknown RASH Verified 01/26/22 10:18 Antibiotics) [Sulfa (Sulfonamides)] azithromycin [AZITHROMYCIN] AdvReac Severe RASH Verified 01/26/22 10:18 nicotine AdvReac Unknown HEART Verified 01/26/22 10:18 PALPITATION TO NICOTINE GUM Seafood Allergy Severe ANAPHYLAXIS Uncoded 11/05/21 21:13 From Geodon Allergy Unknown DYSURIA, Uncoded 11/05/21 21:13 RASH Review of Systems Review of Systems: Constitutional : No Weight loss, No Fever, No Chills, No Fatigue, No Malaise ENT/Mouth : No sore throat, No Rhinorrhea Eyes: No Eye Pain, No Swelling, No Redness Cardiovascular : No Chest Pain, No SOB, No Dyspnea on Exertion, No Orthopnea, No Edema, No Palpitations Respiratory : No Cough, No Sputum, No Wheezing Gastrointestinal : No Nausea, No Vomiting, No Diarrhea, No Constipation, No abdominal Pain, No Hematochezia, No Melena Genitourinary : No Dysuria, No Urinary Frequency, No Hematuria, Musculoskeletal : No joint pain, No Myalgias, No Joint Swelling Skin : No Skin Lesions, No rash Neuro : No Weakness, No Numbness, No Dizziness, No Headache Psych : + Anxiety/Panic, No Depression, no suicidal ideation, homicidal ideation All other systems reviewed and are negative Yes all other systems are reviewed and are negative PMFSH Past Medical History Attestation statement: The following information was validated with the patient. Source: old records reviewed and nursing notes reviewed Medical History Acetaminophen overdose Borderline personality disorder Bronchitis Depression Diabetes type 2, controlled GERD (gastroesophageal reflux disease) History of attempted suicide History of non-suicidal self-harm Hyperlipidemia Hypomagnesemia MDD (major depressive disorder), recurrent episode, severe Mood disorder Overdose PTSD (post-traumatic stress disorder) Suicide attempt Suicide attempt by acetaminophen overdose Social History Social History 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: None 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 Other:: Patient lives in residential. 4 in total live in residential. Housing: Other Housing Other:: residential Do you presently have visiting nurse or other home services: No Unable to assess alcohol history related to: Unknown Alcohol intake: never Patient Tobacco Use Status: Current everyday Tobacco user Tobacco use type: Cigarette Cigarette Packs Per Day: 1 Cigarettes Per Day: 20 Years Smoked: 20 e-Cigarette/Vaping Use: Never Used Substance Use Type: Caffiene Advance Directives: No Advance Directives Information Provided: No Patient : No service: No Current occupational status: disabled Sexual orientation: Don't Know Physical Exam Vital Signs: Vital Signs: Last Vital Signs Temp 99.2 F 02/14/22 22:06 Pulse 103 H 02/14/22 22:06 Resp 18 02/14/22 22:06 BP 144/93 H 02/14/22 22:06 Pulse Ox 97 02/14/22 22:06 BMI result Body Mass Index 39.8 Vital signs stable Appearance: Alert.? Oriented X3.? No acute distress.? Head: Normocephalic, atraumatic, no step-offs or deformities Eyes: Pupils equal, round and reactive to light.? ENT: Pharynx normal.? Neck: Normal inspection.? Neck supple.? CVS: Normal heart rate and rhythm.? Pulses normal.? Respiratory: No respiratory distress.? Breath sounds normal.? Abdomen: Soft and nontender.? Skin: Skin warm and dry.? Normal skin color.? Normal skin turgor.?+ old scarred self-inflicted wounds to abdomen, bilateral ventral aspects of forearms Extremities: No lower extremity edema.? No calf ttp. 5/5 strength to bilateral upper and lower extremities Back: No midline tenderness, no C-spine tenderness, full range of motion, no CVA tenderness bilaterally Neuro: Oriented X 3.? No motor deficit.? No sensory deficit. CN 2-12 intact Course Reevaluation(s) Reevaluation #1: Urine clean no signs of infection. Toxicology negative. COVID negative. Ordered salicylate and acetaminophen level. At this time patient will be placed in physician observation to allow more time to be evaluated by the behavioral health team. At time observation was started patient common cooperative no acute distress. Will continue to monitor Time: 00:02 MDM - Psych MDM Narrative Medical decision making narrative: 3 46-year-old female presents with auditory hallucinations and feeling angry. Physical exam benign. Plan at this time is COVID, urine. Patient without any medical complaints no need for laboratory studies as she recently had them done few days ago. Medical Records Attestation: I reviewed the patient's medical records. Lab Data Attestation: I reviewed the patient's lab results. Labs: Lab Results 02/14/22 02/14/22 02/14/22 Range/Units 22:11 22:19 22:19 Urine Color YELLOW Urine Appearance CLEAR Urine pH 6.0 (5.0-8.0) Ur Specific [place] <= 1.005 (1.005-1.025) Urine Protein NEG (NEG-TRACE) MG/DL Urine Glucose (UA) NEG (NEG) MG/DL Urine Ketones NEG (NEG) MG/DL Urine Blood NEG (NEG) Urine Nitrite NEG (NEG) Ur Leukocyte Esterase NEG (NEG) Urine Test NEGATIVE (NEGATIVE) Urine Opiates Screen (Not Detect) Urine Fentanyl Screen (Not Detect) Ur Barbiturates Screen (Not Detect) Ur Phencyclidine Scrn (Not Detect) Ur Amphetamines Screen (Not Detect) U Benzodiazepines Scrn (Not Detect) Urine Cocaine Screen (Not Detect) U Marijuana (THC) Screen (Not Detect) COVID-19 (NICK) Negative (Negative) COVID-19 Clin Com See Note 02/14/22 Range/Units 22:20 Urine Color Urine Appearance Urine pH (5.0-8.0) Ur Specific [place] (1.005-1.025) Urine Protein (NEG-TRACE) MG/DL Urine Glucose (UA) (NEG) MG/DL Urine Ketones (NEG) MG/DL Urine Blood (NEG) Urine Nitrite (NEG) Ur Leukocyte Esterase (NEG) Urine Test (NEGATIVE) Urine Opiates Screen Not Detected (Not Detect) Urine Fentanyl Screen Not Detected (Not Detect) Ur Barbiturates Screen Not Detected (Not Detect) Ur Phencyclidine Scrn Not Detected (Not Detect) Ur Amphetamines Screen Not Detected (Not Detect) U Benzodiazepines Scrn Not Detected (Not Detect) Urine Cocaine Screen Not Detected (Not Detect) U Marijuana (THC) Screen Not Detected (Not Detect) COVID-19 (NICK) (Negative) COVID-19 Clin Com Critical Care Time Critical Care Time Critical Care Time: No Discharge Plan Discharge Clinical Impression: Depression, Auditory hallucination Patient Disposition: Still a Patient Prescriptions: No Action metformin 500 mg tablet 1 tab PO BID 0RF atorvastatin 10 mg tablet 1 tab PO DAILY 0RF verapamil 240 mg tablet extended release 1 tab PO BEDTIME 0RF montelukast 10 mg tablet 1 tab PO BEDTIME 0RF Flovent HFA 110 mcg/actuation HFA aerosol inhaler 2 puff inhalation BID 0RF albuterol sulfate [Ventolin HFA] 90 mcg/actuation HFA aerosol inhaler 2 puff inhalation Q4H PRN (Reason: Shortness Of Breath) 0RF trazodone 150 mg tablet 150 mg PO BEDTIME PRN (Reason: insomnia) 0RF benztropine 1 mg tablet 1 mg PO BID 0RF naproxen 500 mg tablet 1 tab PO BID 0RF docusate sodium [Colace] 100 mg capsule 100 mg PO BID Qty: 60 0RF fluoxetine 20 mg Capsule 40 mg PO DAILY 30 Days Qty: 60 0RF prazosin 1 mg Capsule 4 mg PO BEDTIME 30 Days Qty: 120 0RF Protocol: Hold for SBP< HOLD for SBP < : 90 mirtazapine 7.5 mg Tablet 7.5 mg PO BEDTIME MRX1 30 Days Qty: 60 0RF lisinopril 5 mg tablet 1 tab PO DAILY 0RF doxycycline monohydrate 100 mg capsule 100 mg PO BID 10 Days Qty: 20 0RF ondansetron 4 mg tablet,disintegrating 4 mg PO Q6-8H PRN (Reason: nausea and vomiting) Qty: 14 0RF
[2022-02-14 22:27] LABS: Appearance Urine CLEAR; Color Urine YELLOW; Glucose Urine UA NEG (NEG); Leukocyte Esterase Urine NEG (NEG); Nitrite Urine NEG (NEG); Specific Gravity - Urine <= 1.005 (1.005-1.025); Urine Blood NEG (NEG); Urine Ketones NEG (NEG); Urine Protein NEG (NEG-TRACE)
[2022-02-14 22:30] LABS: UPreg QC Valid YES; Urine Pregnancy NEGATIVE (NEGATIVE)
[2022-02-14 22:30] LABS: COVID-19 Test Negative (Negative)
[2022-02-14 22:47] LABS: Amphetamine Screen Urine Not Detected (Not Detect); Barbiturates, Urine Not Detected (Not Detect); Benzodiazepines Screen Urine Not Detected (Not Detect); Cannabinoid Screen Urine Not Detected (Not Detect); Cocaine Screen Urine Not Detected (Not Detect); Fentanyl, urine Not Detected (Not Detect); Opiate Screen Urine Not Detected (Not Detect); Phencyclidine Screen Urine Not Detected (Not Detect)
[2022-02-15 00:07] VITALS: BP 121/69; PULSE 112; RESP 17; TEMP 36.6; O2SAT 96
[2022-02-15 01:18] LABS: Acetaminophen LAB < 1 mcg/mL (<30); Salicylate < 5.0 mg/dL (15-30)
[2022-02-15 05:06] VITALS: BP 133/89; PULSE 106; RESP 17; TEMP 36.7; O2SAT 97
--- NOTE | 2022-02-15 05:52 | PC.NURSE ---
Patient slept through the night, no distress observed/reported, patient was assessed by [facility] in the community, disposition was current provider but patient called 911, [facility] referral completed/confirmed/pending ETA or MSU, med rec completed/pending provider's approval, patient's behavior non-concerning and at baseline attention seeking, will continue to monitor.
--- NOTE | 2022-02-15 08:00 | PC.NURSE ---
patient appears to remain asleep at present respirations are even and unlabored patient appears in no distress
[2022-02-15 10:12] VITALS: BP 124/75; PULSE 97; RESP 17; TEMP 36.8; O2SAT 96
[2022-02-15] MEDS: lisinopriL 5 MG TABLET PO (10:14)
[2022-02-15] MEDS: Benztropine Mesylate 1 MG TABLET PO (10:14)
[2022-02-15] MEDS: Docusate Sodium 100 MG CAPSULE PO (10:14)
[2022-02-15] MEDS: metFORMIN HCl 500 MG TABLET PO (10:14)
[2022-02-15] MEDS: FLUoxetine HCl 20 MG CAPSULE 40 MG PO (10:14)
[2022-02-15] MEDS: NaPROXEN 500 MG TABLET PO (10:14)
--- NOTE | 2022-02-15 11:11 | MHC.CARE ---
CARE team met with pt for follow up. Pt presented to the ED with reported AH. Pt then denied hearing voices and firmly denied feeling suicidal and denied having urges to self harm. Pt seeking to dc and willing to engage in safety planning to return to her 24/hr staffed correction. Utilizing pts Care plan, CARE and pt reviewed DBT worksheet in addition to Safety Plan. T/w called [facility] and they are willing to accept pt back home. Pt also stated she looked forward to seeing her Peer Civil Engineer from [facility] who pt reportedly made a plan [facility]. CARE reviewed with ED and dc order placed. Juan Daniel was called for pt.
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
== END 2022-02-15 11:53 | disposition home or self-care (01) ==
PROVIDERS: Physician Assistant; Emergency Provider Internal Medicine; PCP Nurse Practitioner Family
DX: F33.1 Major depressive disorder, recurrent, moderate (principal); F43.10 Post-traumatic stress disorder, unspecified; R44.0 Auditory hallucinations; Z20.822 Contact with and (suspected) exposure to COVID-19; F17.210 Nicotine dependence, cigarettes, uncomplicated; Z71.6 Tobacco abuse counseling; Z79.899 Other long term (current) drug therapy
CPT/HCPCS: 36415; 80143; 80179; 80307; 81003; 81025; 87635; 96361; 96374; 99283; 99284

== ENCOUNTER 2022-02-22 19:15 | Emergency (ER) | payer MEDICARE, MEDICAID, SELFPAY ==
[2022-02-22 19:22] VITALS: BP 158/110; PULSE 111; RESP 20; TEMP 36.8; O2SAT 98; BMI 80.0
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
[2022-02-22 19:50] LABS: COVID-19 Test Negative (Negative)
[2022-02-22] MEDS: chlorproMAZINE HCl 25 MG TABLET 75 MG PO (20:31)
[2022-02-22] MEDS: Docusate Sodium 100 MG CAPSULE PO (20:36)
[2022-02-22] MEDS: Montelukast Sodium 10 MG TABLET PO (20:36)
[2022-02-22] MEDS: lisinopriL 5 MG TABLET PO (20:36)
[2022-02-22] MEDS: Benztropine Mesylate 1 MG TABLET PO (20:36)
[2022-02-22] MEDS: VerapamiL HCL SR 240 MG TABLET.ER PO (20:46)
[2022-02-22] MEDS: NaPROXEN 500 MG TABLET PO (20:47)
[2022-02-22] MEDS: Mirtazapine 7.5 MG TABLET PO (20:47)
[2022-02-22] MEDS: Prazosin HCL 1 MG CAPSULE 4 MG PO (20:47)
[2022-02-22 20:52] VITALS: BP 142/98; PULSE 88; RESP 20
[2022-02-22 21:09] LABS: Glucose, Whole Blood 110 mg/dL (60-115)
[2022-02-22 21:29] LABS: Appearance Urine CLEAR; Color Urine YELLOW; Glucose Urine UA NEG (NEG); Leukocyte Esterase Urine NEG (NEG); Nitrite Urine NEG (NEG); Urine Blood NEG (NEG); Urine Ketones NEG (NEG); Urine Protein NEG (NEG-TRACE)
[2022-02-22 21:49] LABS: Amphetamine Screen Urine Not Detected (Not Detect); Barbiturates, Urine Not Detected (Not Detect); Benzodiazepines Screen Urine Not Detected (Not Detect); Cannabinoid Screen Urine Not Detected (Not Detect); Cocaine Screen Urine Not Detected (Not Detect); Fentanyl, urine Not Detected (Not Detect); Opiate Screen Urine Not Detected (Not Detect); Phencyclidine Screen Urine Not Detected (Not Detect)
[2022-02-22] MEDS: Albuterol Sulfate 90 MCG 8 GM INHALER 2 PUFF INHALE (23:25)
--- NOTE | 2022-02-23 00:16 | MHC.CARE ---
CARE Team met with pt who reports that she has been struggling due to the anniversary of her fiance. She came to ED crying and has been uncontrollably sobbing. Pt states she is not ready to be discharged and requests her night time meds so that she can go to sleep. Pt repeatedly tells this creative writer that she is experiencing auditory hallucinations commanding her to ingest tylenol again. She is not in a good space at this time considering her affect and mood, unable to contract for safety. Pt is typically able to notify us when she is ready to leave and can safety plan however at this time due to her presentation this cannot be entertained. Pt was provided with her medications and went to sleep. CARE team will follow up with her tomorrow to assess risk and determine her needs at that time.
--- NOTE | 2022-02-23 05:32 | PC.NURSE ---
Patient slept through the night, no distress observed/reported, medication compliant, behavior non concerning, mood depressed and tearful, awaiting care team assessment in the morning, VSS, will continue to monitor.
[2022-02-23 06:42] VITALS: BP 101/54; PULSE 74; RESP 17; TEMP 36.4; O2SAT 95
--- NOTE | 2022-02-23 07:16 | PC.NURSE ---
Report recieved from Vladimir CARDOSO. Pt sleeping. visible chest rise.
[2022-02-23] MEDS: Docusate Sodium 100 MG CAPSULE PO (07:53)
[2022-02-23] MEDS: NaPROXEN 500 MG TABLET PO (07:53)
[2022-02-23] MEDS: metFORMIN HCl 500 MG TABLET PO (07:54)
[2022-02-23] MEDS: lisinopriL 5 MG TABLET PO (07:54)
[2022-02-23] MEDS: Atorvastatin Calcium 10 MG TABLET PO (07:55)
[2022-02-23] MEDS: FLUoxetine HCl 20 MG CAPSULE 40 MG PO (07:55)
[2022-02-23] MEDS: Benztropine Mesylate 1 MG TABLET PO (07:55)
--- NOTE | 2022-02-23 07:59 | PC.NURSE ---
ambulatory in department. states i'm hearing voices they tell me not to take my meds Pt takes meds after just a short moment of hesitancy. No attempts at self harm since waking this am. does endorse SI at this time. awaits check in from CARE team.
[2022-02-23] MEDS: Fluticasone Propionate 100 MCG BLST.W.DEV 2 PUFF INHALE (08:34)
--- NOTE | 2022-02-23 09:57 | MHC.CARE ---
Pt is a 46 y/o white Arabic speaking female, who is previously known to the CARE Team through multiple prior assessments, Risk screenings, ED visits and inpatient stays.? Yesterday pt was transported to this facility from home via ambulance for command auditory hallucinations telling her to cut herself.? Patient stated that she did scratch her left arm.? She reported SI and self-harm urges with a plan to cut herself or overdose on her medications.? Pt reports that the anniversary of her fianc??s is approaching and that this has been a hard time for her.? She advises CARE Team that she had not had any such issues with this anniversary in the previous 3 years and is unsure why its approach is affecting her in this fashion.? She advises care givers that she believes this approaching anniversary has triggered her suicidal ideation and she states she wants to join him.? Pt has been medically cleared and is being assessed by the CARE Team to determine risk. Pt has an extensive hx of inpt hospitalizations, and is known to engage in unsafe behavior when decompensated. Past documented hx of Mild major depressive d/o, PTSD, and Borderline personality d/o. Pt has a hx of self-harm and suicide attempts. Pt is alert and oriented x4 and is assessed by CARE Team in her room in the behavioral health pod of the ED.? Pt is mildly disheveled in appearance and appears older than her stated age.? She stated that last night she was hearing voices and ?They were really bad.?? Today, she advises [facility] Team that, while her voices are still present, they are not as intrusive or hostile as they were yesterday.? She denies HI, SI, , and self-harm urges.? She states her sleep and appetite have been ?ok?.? She reports her mood as good, and better.? ? Pt?s mood is pleasant; she demonstrates full range of affect, and at times jokes and smiles with CARE Team.? Insight, judgement, memory, and concentration are fair and appear to be at her baseline.? Pt appears to be at her baseline at this time. Pt will be starting a day program on Sunday of next week and will be attending on Mondays, , and Fridays. The plan is for pt to be discharged to the custodial.? CARE Team will secure transportation.? A follow up call will be conducted with pt this afternoon.? This disposition was discussed with and agreed upon by ED Provider Wendy Donaldson and pt?s nurse WALKER Hooper.
== END 2022-02-23 09:24 | disposition home or self-care (01) ==
PROVIDERS: Emergency Provider Emergency Medicine Emergency Medical Services
DX: F33.1 Major depressive disorder, recurrent, moderate (principal); R44.0 Auditory hallucinations; R45.851 Suicidal ideations; F17.210 Nicotine dependence, cigarettes, uncomplicated; Z20.822 Contact with and (suspected) exposure to COVID-19; Z71.6 Tobacco abuse counseling; Z79.899 Other long term (current) drug therapy
CPT/HCPCS: 80307; 81003; 82947; 87635; 99284

== ENCOUNTER 2022-02-23 15:18 | Emergency (ER) | payer MEDICARE, MEDICAID, SELFPAY ==
[2022-02-23 16:07] LABS: Amphetamine Screen Urine Not Detected (Not Detect); Barbiturates, Urine Not Detected (Not Detect); Benzodiazepines Screen Urine Not Detected (Not Detect); COVID-19 Test Negative (Negative); Cannabinoid Screen Urine Not Detected (Not Detect); Cocaine Screen Urine Not Detected (Not Detect); Fentanyl, urine Not Detected (Not Detect); IDNOW Serial# 16C4AD1C; Opiate Screen Urine Not Detected (Not Detect); Phencyclidine Screen Urine Not Detected (Not Detect)
[2022-02-23 16:22] VITALS: BP 130/84; BP 139/93; PULSE 120; PULSE 94; RESP 18; TEMP 37.3; O2SAT 95
--- NOTE | 2022-02-23 17:39 | MHC.CARE ---
Addendum entered by Didi Blanco [facility] 02/23/22 18:03: Pt arranged a ride home with her friend. Original Note: Pt is alert and oriented x4, dressed in hospital attire, sitting on her bed in the behavioral health pod. She is disheveled and appears older than her stated age. She is engaged with appropriate eye contact. Speech is quiet and slightly pressured. She denies current SI/HI/ or self harm urges. 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 She reports that she can keep herself safe at her retirement. CARE Team recommends that pt be discharged home. Pt was provided with her Lyft ride for today earlier so CARE Team will reach out for a taxi to bring pt home. Pt is aware that she will need to pay with the taxi herself.
--- NOTE | 2022-02-23 18:27 | ED_ITS ---
HPI - Psych General Chief Complaint: Psychiatric Symptoms Stated Complaint: BEHAVIORAL CRISIS FROM ALF Time Seen by Provider: 02/23/22 15:44 Source: patient Mode of arrival: EMS Limitations: no limitations History of Present Illness HPI Narrative: 46-year-old female well known to this department presents for suicidal ideation. She lives in a [facility]. States that she wanted to go to the store to buy something to kill herself, but the staff grabbed her and would not allow her to go. States that her auditory hallucinations have become unmanageable, they are telling her to kill herself any way possible. This is the anniversary of her fiance's Related Data Home Medications Medication Instructions Recorded Confirmed atorvastatin 10 mg tablet 1 tab PO DAILY 05/29/21 02/22/22 fluticasone propionate 110 2 puff INHALATION BID 05/29/21 02/22/22 mcg/actuation HFA aerosol inhaler (Flovent HFA) metformin 500 mg tablet 1 tab PO BID 05/29/21 02/22/22 montelukast 10 mg tablet 1 tab PO BEDTIME 05/29/21 02/22/22 verapamil 240 mg tablet,extended 1 tab PO BEDTIME 05/29/21 02/22/22 release albuterol sulfate 90 mcg/actuation 2 puff INHALATION Q4H PRN 06/15/21 02/22/22 aerosol inhaler (Ventolin HFA) trazodone 150 mg tablet 150 mg PO BEDTIME PRN 11/05/21 02/22/22 lisinopril 5 mg tablet 1 tab PO DAILY 11/14/21 02/22/22 benztropine 1 mg tablet 1 mg PO BID 12/26/21 02/22/22 naproxen 500 mg tablet 1 tab PO BID 01/23/22 02/22/22 chlorpromazine 25 mg tablet 3 tab PO Q8H PRN 02/15/22 02/22/22 Previous Rx's Medication Instructions Recorded fluoxetine 20 mg capsule 40 mg PO DAILY 30 Days #60 cap 09/29/21 mirtazapine 7.5 mg tablet 7.5 mg PO BEDTIME MRX1 30 Days #60 10/18/21 tab prazosin 1 mg capsule 4 mg PO BEDTIME 30 Days #120 cap 10/18/21 ondansetron 4 mg disintegrating 4 mg PO Q6-8H PRN #14 tab 02/04/22 tablet docusate sodium 100 mg capsule 100 mg PO BID #60 cap 02/07/22 (Colace) Allergies Allergy/AdvReac Type Severity Reaction Status Date / Time Fish Containing Products Allergy Severe ANAPHYLAXIS Verified 02/23/22 16:21 codeine [Codeine] Allergy Unknown RASH Verified 02/23/22 16:21 Penicillins Allergy Unknown RASH Verified 02/23/22 16:21 prednisone [Prednisone] Allergy Unknown RASH Verified 02/23/22 16:21 Sulfa (Sulfonamide Allergy Unknown RASH Verified 02/23/22 16:21 Antibiotics) [Sulfa (Sulfonamides)] azithromycin [AZITHROMYCIN] AdvReac Severe RASH Verified 02/23/22 16:21 nicotine AdvReac Unknown HEART Verified 02/23/22 16:21 PALPITATION TO NICOTINE GUM Seafood Allergy Severe ANAPHYLAXIS Uncoded 11/05/21 21:13 From Geodon Allergy Unknown DYSURIA, Uncoded 11/05/21 21:13 RASH Review of Systems Constitutional: Constitutional: Denies body ache(s), Denies chills, Denies fatigue, Denies fever(s), Denies headache(s), Denies malaise and Denies weakness Eyes: Eyes: Denies diplopia ENT: Denies vertigo, Denies dizziness, Denies otalgia, Denies headache(s), Denies mouth pain, Denies post nasal drip, Denies sinus pain, Denies sinus pressure, Denies sore throat and Denies throat swelling Cardiovascular: Cardiovascular: Denies chest pain, Denies syncope, Denies leg edema, Denies lightheadedness, Denies Loss of Consciousness, Denies palpitations and Denies dyspnea Respiratory: Respiratory: Denies chest congestion, Denies cough and Denies d yspnea Gastrointestinal: Gastrointestinal: Reports abdominal pain, Denies hematochezia, Denies constipation, Denies diarrhea and Denies vomiting Musculoskeletal: Musculoskeletal: Reports no additional musculoskeletal complaints Neurologic: Denies confusion, Denies vertigo, Denies dizziness, Denies syncope, Denies headache(s) and Denies weakness Psychiatric: Psychiatric: Reports anxiety, Denies confusion, Reports depression, Reports auditory hallucinations, Denies homicidal ideation and Reports suicidal ideation Endocrine: Endocrine: Denies fatigue and Denies palpitations Allergic/Immunologic: Allergic/Immunologic: Denies throat swelling PMFSH Past Medical History Medical History Acetaminophen overdose Borderline personality disorder Bronchitis Depression Diabetes type 2, controlled GERD (gastroesophageal reflux disease) History of attempted suicide History of non-suicidal self-harm Hyperlipidemia Hypomagnesemia MDD (major depressive disorder), recurrent episode, severe Mood disorder Overdose PTSD (post-traumatic stress disorder) Suicide attempt Suicide attempt by acetaminophen overdose Social History Social History 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: None 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 Other:: Patient lives in chcf. 4 in total live in chcf. Housing: Other Housing Other:: chcf Do you presently have visiting nurse or other home services: No Unable to assess alcohol history related to: Unknown Alcohol intake: never Patient Tobacco Use Status: Current everyday Tobacco user Tobacco use type: Cigarette Cigarette Packs Per Day: 1 Cigarettes Per Day: 20 Years Smoked: 20 e-Cigarette/Vaping Use: Never Used Substance Use Type: Caffiene Advance Directives: No Advance Directives Information Provided: No service: No Current occupational status: disabled Sexual orientation: Don't Know Physical Exam Vital Signs: Vital Signs: Last Vital Signs Temp 99.1 F 02/23/22 16:22 Pulse 94 02/23/22 16:22 Resp 18 02/23/22 16:22 BP 139/93 H 02/23/22 16:22 Pulse Ox 95 02/23/22 16:22 BMI result Body Mass Index 30.0 Const: General: No confusion Nutritional Appearance: well nourished Orientation/consciousness: No confusion Limitations: no limitations Eyes: Conjunctivae: conjunctivae normal Pupils: Equal, round and reactive pupils present EOM: EOMs intact bilaterally Neck: Neck: Yes full ROM, Yes no lymphadenopathy and Yes supple Resp: Effort & Inspection: normal respiratory effort and able to speak in complete sentences Auscultation: clear to auscultation bilaterally, no crackles, no rales, no rhonchi and no wheezes Cardio: Rate: regular rate Rhythm: regular rhythm Heart sounds: S1 normal heart sound present and S2 normal heart sound present GI: Inspection: Yes normal to inspection Palpation (GI): Soft to palpation, nontender, no guarding and not rigid Percussion: Yes normal to percussion Auscultation: normal bowel sounds Skin: Other: Multiple scars bilateral forearms from cutting, no new lacerations Neuro: General: No confusion Cranial nerves: Yes Equal, round and reactive pupils present Extrem: General: Yes normal to inspection and Yes full ROM Psych: Appearance: grossly normal Affect: normal affect Attitude: cooperative Thought process: Normal thought process present Course Course Course Narrative: Behavioral health re-evaluated patient. Patient denies SI to Behavioral Health, states she can keep herself safe at her ch[facility] Will discharge to chcf with safety plan MDM - Psych Lab Data Labs: Lab Results 02/23/22 02/23/22 Range/Units 15:39 15:39 Urine Opiates Screen Not Detected (Not Detect) Urine Fentanyl Screen Not Detected (Not Detect) Ur Barbiturates Screen Not Detected (Not Detect) Ur Phencyclidine Scrn Not Detected (Not Detect) Ur Amphetamines Screen Not Detected (Not Detect) U Benzodiazepines Scrn Not Detected (Not Detect) Urine Cocaine Screen Not Detected (Not Detect) U Marijuana (THC) Screen Not Detected (Not Detect) COVID-19 (NICK) Negative (Negative) COVID-19 Clin Com See Note Discharge Plan Discharge Clinical Impression: Depression Patient Disposition: Home, Self-Care Instructions: Depression (ED) Additional Instructions: Please return to emergency room for any new or concerning symptoms, especially if you feel like hurting herself or hurting anyone Prescriptions: No Action metformin 500 mg tablet 1 tab PO BID 0RF atorvastatin 10 mg tablet 1 tab PO DAILY 0RF verapamil 240 mg tablet extended release 1 tab PO BEDTIME 0RF montelukast 10 mg tablet 1 tab PO BEDTIME 0RF Flovent HFA 110 mcg/actuation HFA aerosol inhaler 2 puff inhalation BID 0RF albuterol sulfate [Ventolin HFA] 90 mcg/actuation HFA aerosol inhaler 2 puff inhalation Q4H PRN (Reason: Shortness Of Breath) 0RF trazodone 150 mg tablet 150 mg PO BEDTIME PRN (Reason: insomnia) 0RF benztropine 1 mg tablet 1 mg PO BID 0RF naproxen 500 mg tablet 1 tab PO BID 0RF docusate sodium [Colace] 100 mg capsule 100 mg PO BID Qty: 60 0RF fluoxetine 20 mg Capsule 40 mg PO DAILY 30 Days Qty: 60 0RF prazosin 1 mg Capsule 4 mg PO BEDTIME 30 Days Qty: 120 0RF Protocol: Hold for SBP< HOLD for SBP < : 90 mirtazapine 7.5 mg Tablet 7.5 mg PO BEDTIME MRX1 30 Days Qty: 60 0RF lisinopril 5 mg tablet 1 tab PO DAILY 0RF ondansetron 4 mg tablet,disintegrating 4 mg PO Q6-8H PRN (Reason: nausea and vomiting) Qty: 14 0RF chlorpromazine 25 mg tablet 3 tab PO Q8H PRN (Reason: Agitation) 0RF
== END 2022-02-23 19:27 | disposition home or self-care (01) ==
PROVIDERS: Emergency Provider Emergency Medicine
DX: F33.9 Major depressive disorder, recurrent, unspecified (principal); R44.0 Auditory hallucinations; E11.9 Type 2 diabetes mellitus without complications; Z79.84 Long term (current) use of oral hypoglycemic drugs; Z79.899 Other long term (current) drug therapy; Z91.51 Personal history of suicidal behavior; Z20.822 Contact with and (suspected) exposure to COVID-19
CPT/HCPCS: 80307; 87635; 99284

== ENCOUNTER 2022-02-24 17:15 | Emergency (ER) | payer MEDICARE, MEDICAID, SELFPAY ==
[2022-02-24 17:21] VITALS: BP 108/78; BP 135/91; PULSE 102; PULSE 90; RESP 18; TEMP 36.9; O2SAT 97; O2SAT 99; BMI 48.9
--- NOTE | 2022-02-24 17:28 | ED.GENADULT ---
HPI - General Adult General Chief complaint: Psychiatric Symptoms Stated complaint: crisis Time Seen by Provider: 02/24/22 17:28 Source: patient and EMS Mode of arrival: EMS Limitations: no limitations History of Present Illness HPI narrative: Patient is a 46 year old female presenting to the emergency department today after a panic attack with SI. Patient states that she was feeling overwhelmed and suicidal after a panic attack. Patient denies any dizziness, lightheadedness, abdominal pain, nausea, vomiting, fever, chills, blurry vision, double vision, loss of vision, chest pain, difficulty breathing, shortness of breath, back pain, night sweats, pain with urination, increased urinary frequency, increased urinary urgency, blood in her urine or stool, syncope or a near syncopal episode, recent trauma or falls, bowel incontinence, bladder incontinence, bowel retention, bladder retention, or any other complaints at this time. Onset (ago): hour(s) Relieving factors: none Exacerbating factors: none Associated symptoms: denies other symptoms Treatments prior to arrival: none Related Data Home Medications Medication Instructions Recorded Confirmed atorvastatin 10 mg tablet 1 tab PO DAILY 05/29/21 02/22/22 fluticasone propionate 110 2 puff INHALATION BID 05/29/21 02/22/22 mcg/actuation HFA aerosol inhaler (Flovent HFA) metformin 500 mg tablet 1 tab PO BID 05/29/21 02/22/22 montelukast 10 mg tablet 1 tab PO BEDTIME 05/29/21 02/22/22 verapamil 240 mg tablet,extended 1 tab PO BEDTIME 05/29/21 02/22/22 release albuterol sulfate 90 mcg/actuation 2 puff INHALATION Q4H PRN 06/15/21 02/22/22 aerosol inhaler (Ventolin HFA) trazodone 150 mg tablet 150 mg PO BEDTIME PRN 11/05/21 02/22/22 lisinopril 5 mg tablet 1 tab PO DAILY 11/14/21 02/22/22 benztropine 1 mg tablet 1 mg PO BID 12/26/21 02/22/22 naproxen 500 mg tablet 1 tab PO BID 01/23/22 02/22/22 chlorpromazine 25 mg tablet 3 tab PO Q8H PRN 02/15/22 02/22/22 Previous Rx's Medication Instructions Recorded fluoxetine 20 mg capsule 40 mg PO DAILY 30 Days #60 cap 09/29/21 mirtazapine 7.5 mg tablet 7.5 mg PO BEDTIME MRX1 30 Days #60 10/18/21 tab prazosin 1 mg capsule 4 mg PO BEDTIME 30 Days #120 cap 10/18/21 ondansetron 4 mg disintegrating 4 mg PO Q6-8H PRN #14 tab 02/04/22 tablet docusate sodium 100 mg capsule 100 mg PO BID #60 cap 02/07/22 (Colace) Allergies Allergy/AdvReac Type Severity Reaction Status Date / Time Fish Containing Products Allergy Severe ANAPHYLAXIS Verified 02/23/22 16:21 codeine [Codeine] Allergy Unknown RASH Verified 02/23/22 16:21 Penicillins Allergy Unknown RASH Verified 02/23/22 16:21 prednisone [Prednisone] Allergy Unknown RASH Verified 02/23/22 16:21 Sulfa (Sulfonamide Allergy Unknown RASH Verified 02/23/22 16:21 Antibiotics) [Sulfa (Sulfonamides)] azithromycin [AZITHROMYCIN] AdvReac Severe RASH Verified 02/23/22 16:21 nicotine AdvReac Unknown HEART Verified 02/23/22 16:21 PALPITATION TO NICOTINE GUM Seafood Allergy Severe ANAPHYLAXIS Uncoded 11/05/21 21:13 From [place]odon Allergy Unknown DYSURIA, Uncoded 11/05/21 21:13 RASH Review of Systems Constitutional: Constitutional: Reports no additional constitutional complaints, Denies chills, Denies fever(s) and Denies night sweats Eyes: Eyes: Reports no additional eye complaints, Denies blurry vision, Denies change in vision, Denies diplopia, Denies eye discharge, Denies loss of vision and Denies eye pain ENT: Denies dizziness Cardiovascular: Cardiovascular: Reports no additional cardiovascular complaints, Denies chest pain, Denies lightheadedness, Denies Loss of Consciousness and Denies dyspnea Respiratory: Respiratory: Reports no additional respiratory complaints and Denies dyspnea Gastrointestinal: Gastrointestinal: Reports no additional gastrointestinal complaints, Denies abdominal pain, Denies melena, Denies hematochezia, Denies change in bowel habits and Denies change in stool character Genitourinary: Genitourinary: Denies hematuria, Denies urinary frequency, Denies dysuria, Denies urinary incontinence, Denies urinary hesitancy and Denies urinary urgency Musculoskeletal: Musculoskeletal: Reports no additional musculoskeletal complaints, Denies numbness and Denies tingling Neurologic: Denies dizziness, Denies loss of vision, Denies numbness and Denies tingling Psychiatric: Psychiatric: Reports no additional psychiatric complaints and Reports suicidal ideation Endocrine: Endocrine: Reports no additional endocrine complaints Hematologic/Lymphatic: Hematologic/Lymphatic: Reports no additional hematologic/lymphatic complaints Allergic/Immunologic: Allergic/Immunologic: Reports no additional allergic/immunologic complaints PMFSH Past Medical History Attestation statement: The following information was validated with the patient. Source: old records reviewed Medical History Acetaminophen overdose Borderline personality disorder Bronchitis Depression Diabetes type 2, controlled GERD (gastroesophageal reflux disease) History of attempted suicide History of non-suicidal self-harm Hyperlipidemia Hypomagnesemia MDD (major depressive disorder), recurrent episode, severe Mood disorder Overdose PTSD (post-traumatic stress disorder) Suicide attempt Suicide attempt by acetaminophen overdose Social History Social History 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: None 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 Other:: Patient lives in [facility]. 4 in total live in [facility]. Housing: Other Housing Other:: [facility] Do you presently have visiting nurse or other home services: No Unable to assess alcohol history related to: Unknown Alcohol intake: never Patient Tobacco Use Status: Current everyday Tobacco user Tobacco use type: Cigarette Cigarette Packs Per Day: 1 Cigarettes Per Day: 20 Years Smoked: 20 e-Cigarette/Vaping Use: Never Used Substance Use Type: Caffiene Advance Directives: No Advance Directives Information Provided: No service: No Current occupational status: disabled Sexual orientation: Don't Know Physical Exam ED Vital Signs: Vital Signs - 24 hr 02/24/22 17:21 Temperature 98.5 F Pulse Rate 90 Respiratory Rate 18 Blood Pressure 135/91 H Pulse Oximetry 97 BMI result Body Mass Index 48.9 Const General: cooperative, no acute distress, alert and awake Nutritional Appearance: well nourished Orientation/consciousness: patient oriented x3 Limitations: no limitations HENMT Head: Yes normal to inspection and Yes atraumatic Ears: hearing grossly normal bilaterally and external ears normal General nose exam: Normal external nose present, no nasal discharge noted and no epistaxis Face and sinus: Yes normal facial exam, No abrasion and No laceration Mouth: Normal oral and palatal mucosa present, no drooling and no muffled voice Eyes General: appearance normal, both eyes and all related structures Periorbital: periorbital findings normal Eyelids: Yes eyelids normal Conjunctivae: conjunctivae normal Pupils: Equal, round and reactive pupils present EOM: EOMs intact bilaterally Neck Neck: Yes normal visual inspection, Yes full ROM and Yes no lymphadenopathy Chest Chest palpation & inspection: normal inspection of the chest Resp Effort & Inspection: normal respiratory effort and able to speak in complete sentences Auscultation: clear to auscultation bilaterally Cardio Rate: regular rate Rhythm: regular rhythm GI Inspection: Yes normal to inspection Neuro General: patient oriented x3 and moves all extremities Cranial nerves: Yes Equal, round and reactive pupils present Cognition (Neuro): normal cognition Motor exam (neuro): 5/5 motor strength present throughout Sensory Exam: Normal double simultaneous stimulation for sensation Coordination: [id number] test normal Extrem General: Yes normal to inspection, Yes full ROM and Yes capillary refill normal Psych Appearance: grossly normal Mental Status: mental status grossly normal Affect: normal affect Attitude: cooperative Thought process: Normal thought process present Thought content: Suicidality present Insight: Good insight present (Psych) Medical Decision Making [facility] Narrative Medical decision making narrative: Patient is a 46 year old female presenting to the emergency department today with suicidal ideation after a panic attack. Patient's physical exam was unremarkable. I explained my physical exam findings to the patient. I answered all questions asked by the patient. Upon reevaluation, the patient is no longer suicidal and would like to go back to the [facility]. I stressed the importance of the patient taking her medication as prescribed. I stressed the importance of the patient following up with her primary care provider. I stressed the importance of the patient returning to the emergency department immediately if her symptoms were to worsen or if she were to develop any dizziness, shortness of breath, difficulty breathing, chest pain, blurry vision, loss of vision, nausea, vomiting, abdominal pain, fever, chills, back pain, or any other complaints. Patient verbalized agreement and understanding with this treatment plan and discharge. Differential Diagnosis Differential Diagnosis: anxiety Medical Records Medical records reviewed: Yes I reviewed the patient's medical records. Lab Data Lab results reviewed: Yes I reviewed the patient's lab results. Labs: Lab Results 02/24/22 02/24/22 02/24/22 Range/Units 17:42 17:42 17:42 Urine Color YELLOW Urine Appearance CLEAR Urine pH 6.0 (5.0-8.0) Ur Specific [place] <= 1.005 (1.005-1.025) Urine Protein NEG (NEG-TRACE) MG/DL Urine Glucose (UA) NEG (NEG) MG/DL Urine Ketones NEG (NEG) MG/DL Urine Blood NEG (NEG) Urine Nitrite NEG (NEG) Ur Leukocyte Esterase NEG (NEG) Urine Test NEGATIVE (NEGATIVE) Urine Opiates Screen Not Detected (Not Detect) Urine Fentanyl Screen Not Detected (Not Detect) Ur Barbiturates Screen Not Detected (Not Detect) Ur Phencyclidine Scrn Not Detected (Not Detect) Ur Amphetamines Screen Not Detected (Not Detect) U Benzodiazepines Scrn Not Detected (Not Detect) Urine Cocaine Screen Not Detected (Not Detect) U Marijuana (THC) Screen Not Detected (Not Detect) COVID-19 (NICK) (Negative) [employer] 02/24/22 Range/Units 17:45 Urine Color Urine Appearance Urine pH (5.0-8.0) Ur Specific [place] (1.005-1.025) Urine Protein (NEG-TRACE) MG/DL Urine Glucose (UA) (NEG) MG/DL Urine Ketones (NEG) MG/DL Urine Blood (NEG) Urine Nitrite (NEG) Ur Leukocyte Esterase (NEG) Urine Test (NEGATIVE) Urine Opiates Screen (Not Detect) Urine Fentanyl Screen (Not Detect) Ur Barbiturates Screen (Not Detect) Ur Phencyclidine Scrn (Not Detect) Ur Amphetamines Screen (Not Detect) U Benzodiazepines Scrn (Not Detect) Urine Cocaine Screen (Not Detect) U Marijuana (THC) Screen (Not Detect) COVID-19 (NICK) Negative (Negative) [employer] See Note Discharge Plan Discharge Clinical Impression: Panic attack Patient Disposition: Home, Self-Care Instructions: Panic Attack (ED) Additional Instructions: Follow up with your primary care provider. Return to the emergency department immediately if your symptoms worsen or if you develop any dizziness, shortness of breath, difficulty breathing, chest pain, blurry vision, loss of vision, nausea, vomiting, abdominal pain, fever, chills, back pain, or any other complaints. Prescriptions: No Action metformin 500 mg tablet 1 tab PO BID 0RF atorvastatin 10 mg tablet 1 tab PO DAILY 0RF verapamil 240 mg tablet extended release 1 tab PO BEDTIME 0RF montelukast 10 mg tablet 1 tab PO BEDTIME 0RF Flovent HFA 110 mcg/actuation HFA aerosol inhaler 2 puff inhalation BID 0RF albuterol sulfate [Ventolin HFA] 90 mcg/actuation HFA aerosol inhaler 2 puff inhalation Q4H PRN (Reason: Shortness Of Breath) 0RF trazodone 150 mg tablet 150 mg PO BEDTIME PRN (Reason: insomnia) 0RF benztropine 1 mg tablet 1 mg PO BID 0RF naproxen 500 mg tablet 1 tab PO BID 0RF docusate sodium [Colace] 100 mg capsule 100 mg PO BID Qty: 60 0RF fluoxetine 20 mg Capsule 40 mg PO DAILY 30 Days Qty: 60 0RF prazosin 1 mg Capsule 4 mg PO BEDTIME 30 Days Qty: 120 0RF Protocol: Hold for SBP< HOLD for SBP < : 90 mirtazapine 7.5 mg Tablet 7.5 mg PO BEDTIME MRX1 30 Days Qty: 60 0RF lisinopril 5 mg tablet 1 tab PO DAILY 0RF ondansetron 4 mg tablet,disintegrating 4 mg PO Q6-8H PRN (Reason: nausea and vomiting) Qty: 14 0RF chlorpromazine 25 mg tablet 3 tab PO Q8H PRN (Reason: Agitation) 0RF Interventions: ED Discharge Assessment Last Done: 02/24/22 19:15 Print Language: Hebrew
--- NOTE | 2022-02-24 17:47 | PC.NURSE ---
removed pts wrist band from her and she had ripped it off and was using it to attempt to harm herself.
[2022-02-24 17:58] LABS: Appearance Urine CLEAR; Color Urine YELLOW; Glucose Urine UA NEG (NEG); Leukocyte Esterase Urine NEG (NEG); Nitrite Urine NEG (NEG); Specific Gravity - Urine <= 1.005 (1.005-1.025); Urine Blood NEG (NEG); Urine Ketones NEG (NEG); Urine Protein NEG (NEG-TRACE)
[2022-02-24 18:00] LABS: UPreg QC Valid YES; Urine Pregnancy NEGATIVE (NEGATIVE)
[2022-02-24 18:07] LABS: Amphetamine Screen Urine Not Detected (Not Detect); Barbiturates, Urine Not Detected (Not Detect); Benzodiazepines Screen Urine Not Detected (Not Detect); Cannabinoid Screen Urine Not Detected (Not Detect); Cocaine Screen Urine Not Detected (Not Detect); Fentanyl, urine Not Detected (Not Detect); Opiate Screen Urine Not Detected (Not Detect); Phencyclidine Screen Urine Not Detected (Not Detect)
[2022-02-24 18:18] LABS: COVID-19 Test Negative (Negative)
--- NOTE | 2022-02-24 19:13 | MHC.CARE ---
Pt is requesting to return to her shelter at this time. She reports that she panicked, but now feels better and doesn't want to miss out on starting her new day program on Sunday. CARE Team will assist with a Lyft home.
== END 2022-02-24 19:36 | disposition home or self-care (01) ==
PROVIDERS: Emergency Provider Internal Medicine
DX: F41.0 Panic disorder [episodic paroxysmal anxiety] (principal); F43.10 Post-traumatic stress disorder, unspecified; F32.A Depression, unspecified; E11.9 Type 2 diabetes mellitus without complications; F17.210 Nicotine dependence, cigarettes, uncomplicated; Z91.51 Personal history of suicidal behavior; Z79.84 Long term (current) use of oral hypoglycemic drugs; Z79.899 Other long term (current) drug therapy; Z20.822 Contact with and (suspected) exposure to COVID-19
CPT/HCPCS: 80307; 81003; 81025; 87635; 99283; 99284

== ENCOUNTER 2022-02-26 20:52 | Emergency (ER) | payer MEDICARE, MEDICAID, SELFPAY ==
[2022-02-26 20:58] VITALS: BP 157/91; PULSE 98; RESP 18; TEMP 37.4; O2SAT 95; BMI 43.7
[2022-02-26 21:29] LABS: Appearance Urine CLEAR; Color Urine YELLOW; Glucose Urine UA NEG (NEG); Leukocyte Esterase Urine NEG (NEG); Nitrite Urine NEG (NEG); PH 6.5 (5.0-8.0); Specific Gravity - Urine <= 1.005 (1.005-1.025); Urine Blood 2+ (NEG); Urine Ketones NEG (NEG); Urine Protein NEG (NEG-TRACE)
[2022-02-26 21:49] LABS: Amphetamine Screen Urine Not Detected (Not Detect); Barbiturates, Urine Not Detected (Not Detect); Benzodiazepines Screen Urine Not Detected (Not Detect); Cannabinoid Screen Urine Not Detected (Not Detect); Cocaine Screen Urine Not Detected (Not Detect); Fentanyl, urine Not Detected (Not Detect); Opiate Screen Urine Not Detected (Not Detect); Phencyclidine Screen Urine Not Detected (Not Detect)
[2022-02-26 22:03] LABS: COVID-19 Test Negative (Negative)
--- NOTE | 2022-02-26 22:18 | ED_ITS ---
HPI - Psych General Chief Complaint: Psychiatric Symptoms Stated Complaint: crisis Time Seen by Provider: 02/26/22 22:18 Source: patient, EMS and police Mode of arrival: EMS Limitations: no limitations History of Present Illness HPI Narrative: 46-year-old female past medical history borderline personality disorder, depression, anxiety, bipolar 2 with melancholic features, PTSD, DM, GERD presents to the ED with complaints of depression, suicidal ideation, and self- inflicted wounds to the left ventral aspect of forearm x1 day. Patient tells me that what triggered this episode is that her fiance a year ago today. She tells me that this is triggering about thoughts and she does not feel like she can speak to anybody at her assisted about this. She denies visual, auditory and tactile hallucinations. She denies homicidal ideation. Denies drugs, alcohol and tobacco. Denies medical complaints at this time. Patient was put on a Section 12 by police. MD complaint: suicidal ideation and feels depressed Onset (ago): day(s) (1) Duration: constant History of same: Yes Relieving factors: none Exacerbating factors: none Associated psychiatric symptoms: none Associated symptoms: denies other symptoms Treatments prior to arrival: none If self harm: admits thoughts of self harm Related Data Home Medications Medication Instructions Recorded Confirmed atorvastatin 10 mg tablet 1 tab PO DAILY 05/29/21 02/26/22 fluticasone propionate 110 2 puff INHALATION BID 05/29/21 02/26/22 mcg/actuation HFA aerosol inhaler (Flovent HFA) metformin 500 mg tablet 1 tab PO BID 05/29/21 02/26/22 montelukast 10 mg tablet 1 tab PO BEDTIME 05/29/21 02/26/22 verapamil 240 mg tablet,extended 1 tab PO BEDTIME 05/29/21 02/26/22 release albuterol sulfate 90 mcg/actuation 2 puff INHALATION Q4H PRN 06/15/21 02/26/22 aerosol inhaler (Ventolin HFA) trazodone 150 mg tablet 150 mg PO BEDTIME PRN 11/05/21 02/26/22 lisinopril 5 mg tablet 1 tab PO DAILY 11/14/21 02/26/22 benztropine 1 mg tablet 1 mg PO BID 12/26/21 02/26/22 naproxen 500 mg tablet 1 tab PO BID 01/23/22 02/26/22 chlorpromazine 25 mg tablet 3 tab PO Q8H PRN 02/15/22 02/26/22 Previous Rx's Medication Instructions Recorded fluoxetine 20 mg capsule 40 mg PO DAILY 30 Days #60 cap 09/29/21 mirtazapine 7.5 mg tablet 7.5 mg PO BEDTIME MRX1 30 Days #60 10/18/21 tab prazosin 1 mg capsule 4 mg PO BEDTIME 30 Days #120 cap 10/18/21 ondansetron 4 mg disintegrating 4 mg PO Q6-8H PRN #14 tab 02/04/22 tablet docusate sodium 100 mg capsule 100 mg PO BID #60 cap 02/07/22 (Colace) Allergies Allergy/AdvReac Type Severity Reaction Status Date / Time Fish Containing Products Allergy Severe ANAPHYLAXIS Verified 02/23/22 16:21 codeine [Codeine] Allergy Unknown RASH Verified 02/23/22 16:21 Penicillins Allergy Unknown RASH Verified 02/23/22 16:21 prednisone [Prednisone] Allergy Unknown RASH Verified 02/23/22 16:21 Sulfa (Sulfonamide Allergy Unknown RASH Verified 02/23/22 16:21 Antibiotics) [Sulfa (Sulfonamides)] azithromycin [AZITHROMYCIN] AdvReac Severe RASH Verified 02/23/22 16:21 nicotine AdvReac Unknown HEART Verified 02/23/22 16:21 PALPITATION TO NICOTINE GUM Seafood Allergy Severe ANAPHYLAXIS Uncoded 11/05/21 21:13 From Geodon Allergy Unknown DYSURIA, Uncoded 11/05/21 21:13 RASH Review of Systems Review of Systems: Constitutional : No Weight loss, No Fever, No Chills, No Fatigue, No Malaise ENT/Mouth : No sore throat, No Rhinorrhea Eyes: No Eye Pain, No Swelling, No Redness Cardiovascular : No Chest Pain, No SOB, No Dyspnea on Exertion, No Orthopnea, No Edema, No Palpitations Respiratory : No Cough, No Sputum, No Wheezing Gastrointestinal : No Nausea, No Vomiting, No Diarrhea, No Constipation, No abdominal Pain, No Hematochezia, No Melena Genitourinary : No Dysuria, No Urinary Frequency, No Hematuria, Musculoskeletal : No joint pain, No Myalgias, No Joint Swelling Skin : No Skin Lesions, No rash Neuro : No Weakness, No Numbness, No Dizziness, No Headache Psych : + Anxiety/Panic, No Depression, + suicidal ideation, homicidal ideation All other systems reviewed and are negative? Yes all other systems are reviewed and are negative Yes all other systems are reviewed and are negative [facility] Past Medical History Attestation statement: The following information was validated with the patient. Source: old records reviewed and nursing notes reviewed Medical History Acetaminophen overdose Borderline personality disorder Bronchitis Depression Diabetes type 2, controlled GERD (gastroesophageal reflux disease) History of attempted suicide History of non-suicidal self-harm Hyperlipidemia Hypomagnesemia MDD (major depressive disorder), recurrent episode, severe Mood disorder Overdose PTSD (post-traumatic stress disorder) Suicide attempt Suicide attempt by acetaminophen overdose Social History Social History 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: None 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 Other:: Patient lives in assisted. 4 in total live in assisted. Housing: Other Housing Other:: assisted Do you presently have visiting nurse or other home services: No Unable to assess alcohol history related to: Unknown Alcohol intake: never Patient Tobacco Use Status: Current everyday Tobacco user Tobacco use type: Cigarette Cigarette Packs Per Day: 1 Cigarettes Per Day: 20 Years Smoked: 20 e-Cigarette/Vaping Use: Never Used Substance Use Type: Caffiene Advance Directives: No Advance Directives Information Provided: No service: No Current occupational status: disabled Sexual orientation: Don't Know Physical Exam Vital Signs: Vital Signs: Last Vital Signs Temp 98.5 F 02/27/22 00:07 Pulse 69 02/27/22 00:07 Resp 17 02/27/22 00:07 BP 160/97 H 02/27/22 00:07 Pulse Ox 98 02/27/22 00:07 BMI result Body Mass Index 43.7 VSS Vital signs stable? Appearance: Alert.? Oriented X3.? No acute distress.? Head:? Normocephalic, atraumatic, no step-offs or deformities Eyes: Pupils equal, round and reactive to light.? ENT: Pharynx normal.? Neck: Normal inspection.? Neck supple.? CVS: Normal heart rate and rhythm.? Pulses normal.? Respiratory: No respiratory distress.? Breath sounds normal.? Abdomen: Soft and nontender.? Skin: Skin warm and dry.? Normal skin color.? Normal skin turgor.?+ old scarred self-inflicted wounds to abdomen, bilateral ventral aspects of forearms + new superficial wounds to left forearm. Extremities: No lower extremity edema.? No calf ttp.? 5/5 strength to bilateral upper and lower extremities Back:? No midline tenderness, no C-spine tenderness, full range of motion, no CVA tenderness bilaterally Neuro: Oriented X 3.? No motor deficit.? No sensory deficit. CN 2-12 intact Course Reevaluation(s) Reevaluation #1: Patient remains common cooperative. CBC within normal limits. No acute electrolyte abnormalities requiring intervention. Urine clean. Toxicology negative. Negative acetaminophen, salicylates. Ethanol negative. COVID negative. At this time patient will be placed in physician observation to allow more time to be evaluated by the behavioral health team. At time observation was started patient common cooperative no acute distress. Will continue to monitor. Patient remains on a Section 12. Time: 00:47 MDM - Psych MDM Narrative Medical decision making narrative: 2100 46-year-old female presents with depression, suicidal ideation and self- inflicted wounds to the left forearm x1 day. Brought in on a Section 12. Physical exam significant for superficial lacerations to the left ventral forearm, not requiring sutures. Regular rate and rhythm. Lungs clear. Neuro exam nonfocal. Abdomen soft nontender nondistended. Plan at this time is medical clearance and evaluation by the behavioral health team. Medical Records Attestation: I reviewed the patient's medical records. Lab Data Attestation: I reviewed the patient's lab results. Result diagrams: 02/26/22 23:53 02/26/22 23:53 Labs: Lab Results 02/26/22 02/26/22 02/26/22 Range/Units 21:12 21:17 21:17 WBC (4.8-10.8) X10*3/uL RBC (4.20-5.50) X10*6/uL Hgb (12.0-16.0) g/dl Hct (37.0-47.0) % MCV (80.0-98.0) fL MCH (27.0-33.0) pg MCHC (31.0-35.0) g/dl RDW (11.0-16.0) % Plt Count (160-400) X10*3/uL MPV (9.4-12.3) fL Immature Gran % (Auto) (0.0-0.4) % Neut % (Auto) (45-73) % Lymph % (Auto) (20-40) % [place] % (Auto) (2-11) % Eos % (Auto) (0-4) % Baso % (Auto) (0-2) % Lymph # (Auto) (1.2-4.9) X10*3/uL [place] # (Auto) (0.1-1.2) X10*3/uL Eos # (Auto) (0.0-0.4) X10*3/uL Baso # (Auto) (0.0-0.2) X10*3/uL Abs Immat Gran (auto) (0.00-0.03) X10*3/uL Absolute Neuts (auto) (2.0-8.3) x10*3/uL Absolute Nucleated RBC (0.0-0.012) X10*3/uL Nucleated RBC % (auto) (0.0-0.2) /100WBC Sodium (135-145) mmol/L Potassium (3.3-5.1) mmol/L Chloride (96-108) mmol/L Carbon Dioxide (22-29) mmol/L Anion Gap (12-20) BUN (9-16) mg/dL Creatinine (0.5-1.4) mg/dL Estim Creat Clear Calc Estimated GFR Random Glucose (60-115) mg/dL Calcium (8.4-10.2) mg/dL Magnesium (1.6-2.6) mg/dL Total Bilirubin (0.0-1.0) mg/dL AST (5-31) U/L ALT (0-31) U/L Alkaline Phosphatase (39-117) U/L Total Protein (6.5-8.0) g/dL Albumin (3.5-5.0) g/dL Urine Color YELLOW Urine Appearance CLEAR Urine pH 6.5 (5.0-8.0) Ur Specific [place] <= 1.005 (1.005-1.025) Urine Protein NEG (NEG-TRACE) MG/DL Urine Glucose (UA) NEG (NEG) MG/DL Urine Ketones NEG (NEG) MG/DL Urine Blood 2+ H (NEG) Urine Nitrite NEG (NEG) Ur Leukocyte Esterase NEG (NEG) Urine RBC 0-2 (0) /HPF Urine WBC 0-2 (0-4) /HPF Ur Squamous Epith Cells TRACE /LPF Urine Bacteria TRACE /LPF Salicylates (15-30) mg/dL Urine Opiates Screen Not Detected (Not Detect) Urine Fentanyl Screen Not Detected (Not Detect) Acetaminophen (<30) mcg/mL Ur Barbiturates Screen Not Detected (Not Detect) Ur Phencyclidine Scrn Not Detected (Not Detect) Ur Amphetamines Screen Not Detected (Not Detect) U Benzodiazepines Scrn Not Detected (Not Detect) Urine Cocaine Screen Not Detected (Not Detect) U Marijuana (THC) Screen Not Detected (Not Detect) Ethyl Alcohol mg/dL COVID-19 (NICK) Negative (Negative) COVID-19 Clin Com See Note 02/26/22 02/26/22 02/26/22 Range/Units 23:53 23:53 23:53 WBC 8.7 (4.8-10.8) X10*3/uL RBC 4.30 (4.20-5.50) X10*6/uL Hgb 12.5 (12.0-16.0) g/dl Hct 37.7 (37.0-47.0) % MCV 87.7 (80.0-98.0) fL MCH 29.1 (27.0-33.0) pg MCHC 33.2 (31.0-35.0) g/dl RDW 13.6 (11.0-16.0) % Plt Count 260 (160-400) X10*3/uL MPV 9.7 (9.4-12.3) fL Immature Gran % (Auto) 0.5 H (0.0-0.4) % Neut % (Auto) 63.0 (45-73) % Lymph % (Auto) 25.0 (20-40) % [place] % (Auto) 7.7 (2-11) % Eos % (Auto) 3.6 (0-4) % Baso % (Auto) 0.2 (0-2) % Lymph # (Auto) 2.2 (1.2-4.9) X10*3/uL [place] # (Auto) 0.7 (0.1-1.2) X10*3/uL Eos # (Auto) 0.3 (0.0-0.4) X10*3/uL Baso # (Auto) 0.0 (0.0-0.2) X10*3/uL Abs Immat Gran (auto) 0.04 H (0.00-0.03) X10*3/uL Absolute Neuts (auto) 5.5 (2.0-8.3) x10*3/uL Absolute Nucleated RBC 0.000 (0.0-0.012) X10*3/uL Nucleated RBC % (auto) 0.0 (0.0-0.2) /100WBC Sodium 141 (135-145) mmol/L Potassium 4.1 D (3.3-5.1) mmol/L Chloride 108 (96-108) mmol/L Carbon Dioxide 24 (22-29) mmol/L Anion Gap 13 (12-20) BUN 12 D (9-16) mg/dL Creatinine 0.76 (0.5-1.4) mg/dL Estim Creat Clear Calc 117.9 Estimated GFR > 60 Random Glucose 89 (60-115) mg/dL Calcium 9.2 D (8.4-10.2) mg/dL Magnesium 1.9 (1.6-2.6) mg/dL Total Bilirubin 0.3 (0.0-1.0) mg/dL AST 14 (5-31) U/L ALT 14 (0-31) U/L Alkaline Phosphatase 82 (39-117) U/L Total Protein 6.6 (6.5-8.0) g/dL Albumin 4.1 (3.5-5.0) g/dL Urine Color Urine Appearance Urine pH (5.0-8.0) Ur Specific [place] (1.005-1.025) Urine Protein (NEG-TRACE) MG/DL Urine Glucose (UA) (NEG) MG/DL Urine Ketones (NEG) MG/DL Urine Blood (NEG) Urine Nitrite (NEG) Ur Leukocyte Esterase (NEG) Urine RBC (0) /HPF Urine WBC (0-4) /HPF Ur Squamous Epith Cells /LPF Urine Bacteria /LPF Salicylates < 5.0 L (15-30) mg/dL Urine Opiates Screen (Not Detect) Urine Fentanyl Screen (Not Detect) Acetaminophen < 1 (<30) mcg/mL Ur Barbiturates Screen (Not Detect) Ur Phencyclidine Scrn (Not Detect) Ur Amphetamines Screen (Not Detect) U Benzodiazepines Scrn (Not Detect) Urine Cocaine Screen (Not Detect) U Marijuana (THC) Screen (Not Detect) Ethyl Alcohol < 10 mg/dL COVID-19 (NICK) (Negative) COVID-19 Clin Com Critical Care Time Critical Care Time Critical Care Time: No Discharge Plan Discharge Clinical Impression: Depression, Suicidal ideation Patient Disposition: Still a Patient Prescriptions: No Action metformin 500 mg tablet 1 tab PO BID 0RF atorvastatin 10 mg tablet 1 tab PO DAILY 0RF verapamil 240 mg tablet extended release 1 tab PO BEDTIME 0RF montelukast 10 mg tablet 1 tab PO BEDTIME 0RF Flovent HFA 110 mcg/actuation HFA aerosol inhaler 2 puff inhalation BID 0RF albuterol sulfate [Ventolin HFA] 90 mcg/actuation HFA aerosol inhaler 2 puff inhalation Q4H PRN (Reason: Shortness Of Breath) 0RF trazodone 150 mg tablet 150 mg PO BEDTIME PRN (Reason: insomnia) 0RF benztropine 1 mg tablet 1 mg PO BID 0RF naproxen 500 mg tablet 1 tab PO BID 0RF docusate sodium [Colace] 100 mg capsule 100 mg PO BID Qty: 60 0RF fluoxetine 20 mg Capsule 40 mg PO DAILY 30 Days Qty: 60 0RF prazosin 1 mg Capsule 4 mg PO BEDTIME 30 Days Qty: 120 0RF Protocol: Hold for SBP< HOLD for SBP < : 90 mirtazapine 7.5 mg Tablet 7.5 mg PO BEDTIME MRX1 30 Days Qty: 60 0RF lisinopril 5 mg tablet 1 tab PO DAILY 0RF ondansetron 4 mg tablet,disintegrating 4 mg PO Q6-8H PRN (Reason: nausea and vomiting) Qty: 14 0RF chlorpromazine 25 mg tablet 3 tab PO Q8H PRN (Reason: Agitation) 0RF
[2022-02-26 22:30] LABS: Bacteria Urine TRACE /LPF; RBC Urine 0-2 /HPF (0); Squamous Epithelial Cell Urine TRACE /LPF; WBC Urine 0-2 /HPF (0-4)
[2022-02-26 23:59] LABS: MANUAL DIFF FLAG NO
[2022-02-27 00:07] VITALS: BP 160/97; PULSE 69; RESP 17; TEMP 36.9; O2SAT 98
[2022-02-27 00:08] LABS: Basophils Percent Auto 0.2 % (0-2); Eosinophils Absolute Auto 0.3 X10*3/uL (0.0-0.4); Eosinophils Percent Auto 3.6 % (0-4); Hematocrit 37.7 % (37.0-47.0); Hemoglobin 12.5 g/dl (12.0-16.0); Imm Gran Abs Auto 0.04 X10*3/uL (0.00-0.03); Imm Gran Pct Auto 0.5 % (0.0-0.4); Lymphocytes Absolute Auto 2.2 X10*3/uL (1.2-4.9); Mean Corpuscular HGB Conc 33.2 g/dl (31.0-35.0); Mean Corpuscular Hemoglobin 29.1 pg (27.0-33.0); Mean Corpuscular Volume 87.7 fL (80.0-98.0); Mean Platelet Volume 9.7 fL (9.4-12.3); Monocytes Absolute Auto 0.7 X10*3/uL (0.1-1.2); Monocytes Percent Auto 7.7 % (2-11); Neutrophils Absolute Auto 5.5 x10*3/uL (2.0-8.3); Platelet Count 260 X10*3/uL (160-400); Red Cell Distribution Width 13.6 % (11.0-16.0); White Blood Count 8.7 X10*3/uL (4.8-10.8)
[2022-02-27 00:31] LABS: Ethanol < 10 mg/dL
[2022-02-27 00:34] LABS: Acetaminophen LAB < 1 mcg/mL (<30); Alanine Aminotransferase 14 U/L (0-31); Albumin Level 4.1 g/dL (3.5-5.0); Alkaline Phosphatase 82 U/L (39-117); Anion Gap 13 (12-20); Aspartate Amino Transferase 14 U/L (5-31); Bilirubin Total 0.3 mg/dL (0.0-1.0); Blood Urea Nitrogen 12 mg/dL (9-16); Calcium 9.2 mg/dL (8.4-10.2); Carbon Dioxide 24 mmol/L (22-29); Chloride 108 mmol/L (96-108); Creatinine Clr Calc Pharmacy 117.9; Estimated Glomerular Filt Rate > 60; Glucose Random 89 mg/dL (60-115); Magnesium 1.9 mg/dL (1.6-2.6); Potassium 4.1 mmol/L (3.3-5.1); Salicylate < 5.0 mg/dL (15-30); Sodium 141 mmol/L (135-145); Total Protein 6.6 g/dL (6.5-8.0)
--- NOTE | 2022-02-27 00:38 | PC.NURSE ---
Provider called asking for Labs results. This senior grant writer called the lab and Results are still Pending at this time. Provider was notify.
--- NOTE | 2022-02-27 06:17 | PC.NURSE ---
Patient slept through the night, no distress observed/reported, behavior appropriate and non concerning, med rec completed/pending provider's approval, two hours after arrival to ED patient wants to go back to her shelter but was late, patient agreed to stay overnight and leave in the morning to attend her day program which begins today at 0830 per patient, care team will coordinate the discharge, VSS, will continue to monitor.
[2022-02-27 08:14] VITALS: BP 108/81; PULSE 75; RESP 18; TEMP 36.8; O2SAT 98
--- NOTE | 2022-02-27 09:59 | MHC.CARE ---
This patient, a 46 year-old woman who is well [place] [facility] and the CARE Team, came to the ED by ambulance last night with self inflicted cuts to her left forearm?and suicidal ideation. She has presented to the ED several times this week with similar reports of distress due to the anniversary of her fiance's . Today she said that she is feeling better, was scheduled to begin a new day program, and would like to be discharged so she attend even though late. Patient was able to reflect upon the events leading up to her cutting and her thought process as well as possible alternative actions. She stated she would like to make her room a safe space and feel that she can go there for a retreat but now it is a, danger zone. In addition, patient said she has plans for a reward system for not cutting which will have to be adjusted. Looking forward today, she hopes to get to the program, will speak to her therapist and pharmacy clinical specialist.Call to the longterm and spoke to Radha, she is home and waiting for patient. RACHEAL arranged, CARE Team to follow up with patient by phone later.Plan of care discussed with ED provider, TIMI Dong and supervisor shearing, ANGELA Hamilton
--- NOTE | 2022-02-27 20:05 | MHC.CARE ---
CARE Team attempted to call pt to follow up twice and left two voicemails for pt encouraging her to reach out to CARE Team if needed.
== END 2022-02-27 09:40 | disposition home or self-care (01) ==
PROVIDERS: Physician Assistant; Emergency Provider Internal Medicine
DX: F33.9 Major depressive disorder, recurrent, unspecified (principal); R45.851 Suicidal ideations; F31.81 Bipolar II disorder; F43.10 Post-traumatic stress disorder, unspecified; E11.9 Type 2 diabetes mellitus without complications; Z63.4 Disappearance and death of family member; Z91.51 Personal history of suicidal behavior; Z91.52 Personal history of nonsuicidal self-harm; Z79.899 Other long term (current) drug therapy; Z20.822 Contact with and (suspected) exposure to COVID-19
CPT/HCPCS: 36415; 80053; 80143; 80179; 80307; 81001; 82077; 83735; 85025; 87635; 99284

== ENCOUNTER 2022-03-02 18:33 | Emergency (ER) | payer MEDICARE, MEDICAID, SELFPAY ==
--- NOTE | 2022-03-02 18:43 | ED.PSYCH ---
HPI - Psych General Stated Complaint: section 12 Time Seen by Provider: 03/02/22 18:43 Source: EMS Mode of arrival: EMS Limitations: altered mental status History of Present Illness HPI Narrative: Patient comes to the emergency room via EMS from her detention. Patient has refused to take her medications, patient is very anxious, seeing and hearing things, patient crying, unable to provide any further history, patient states she has suicidal thoughts, not homicidal. Related Data Home Medications Medication Instructions Recorded Confirmed atorvastatin 10 mg tablet 1 tab PO DAILY 05/29/21 02/26/22 fluticasone propionate 110 2 puff INHALATION BID 05/29/21 02/26/22 mcg/actuation HFA aerosol inhaler (Flovent HFA) metformin 500 mg tablet 1 tab PO BID 05/29/21 02/26/22 montelukast 10 mg tablet 1 tab PO BEDTIME 05/29/21 02/26/22 verapamil 240 mg tablet,extended 1 tab PO BEDTIME 05/29/21 02/26/22 release albuterol sulfate 90 mcg/actuation 2 puff INHALATION Q4H PRN 06/15/21 02/26/22 aerosol inhaler (Ventolin HFA) trazodone 150 mg tablet 150 mg PO BEDTIME PRN 11/05/21 02/26/22 lisinopril 5 mg tablet 1 tab PO DAILY 11/14/21 02/26/22 benztropine 1 mg tablet 1 mg PO BID 12/26/21 02/26/22 naproxen 500 mg tablet 1 tab PO BID 01/23/22 02/26/22 chlorpromazine 25 mg tablet 3 tab PO Q8H PRN 02/15/22 02/26/22 Previous Rx's Medication Instructions Recorded fluoxetine 20 mg capsule 40 mg PO DAILY 30 Days #60 cap 09/29/21 mirtazapine 7.5 mg tablet 7.5 mg PO BEDTIME MRX1 30 Days #60 10/18/21 tab prazosin 1 mg capsule 4 mg PO BEDTIME 30 Days #120 cap 10/18/21 ondansetron 4 mg disintegrating 4 mg PO Q6-8H PRN #14 tab 02/04/22 tablet docusate sodium 100 mg capsule 100 mg PO BID #60 cap 02/07/22 (Colace) Allergies Allergy/AdvReac Type Severity Reaction Status Date / Time Fish Containing Products Allergy Severe ANAPHYLAXIS Verified 02/23/22 16:21 codeine [Codeine] Allergy Unknown RASH Verified 02/23/22 16:21 Penicillins Allergy Unknown RASH Verified 02/23/22 16:21 prednisone [Prednisone] Allergy Unknown RASH Verified 02/23/22 16:21 Sulfa (Sulfonamide Allergy Unknown RASH Verified 02/23/22 16:21 Antibiotics) [Sulfa (Sulfonamides)] azithromycin [AZITHROMYCIN] AdvReac Severe RASH Verified 02/23/22 16:21 nicotine AdvReac Unknown HEART Verified 02/23/22 16:21 PALPITATION TO NICOTINE GUM Seafood Allergy Severe ANAPHYLAXIS Uncoded 11/05/21 21:13 From Geodon Allergy Unknown DYSURIA, Uncoded 11/05/21 21:13 RASH Review of Systems Review of Systems: Yes Unobtainable due to mental condition PMFSH Past Medical History Medical History Acetaminophen overdose Borderline personality disorder Bronchitis Depression Diabetes type 2, controlled GERD (gastroesophageal reflux disease) History of attempted suicide History of non-suicidal self-harm Hyperlipidemia Hypomagnesemia MDD (major depressive disorder), recurrent episode, severe Mood disorder Overdose PTSD (post-traumatic stress disorder) Suicide attempt Suicide attempt by acetaminophen overdose Social History Social History 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: None 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 Other:: Patient lives in detention. 4 in total live in detention. Housing: Other Housing Other:: detention Do you presently have visiting nurse or other home services: No Unable to assess alcohol history related to: Unknown Alcohol intake: never Patient Tobacco Use Status: Current everyday Tobacco user Tobacco use type: Cigarette Cigarette Packs Per Day: 1 Cigarettes Per Day: 20 Years Smoked: 20 e-Cigarette/Vaping Use: Never Used Substance Use Type: Caffiene service: No Current occupational status: disabled Sexual orientation: Don't Know Physical Exam Const: Other: Appearance: Alert. Very anxious, pacing in circles, crying Eyes: Pupils equal, round and reactive to light. ENT: Pharynx normal. Neck: Normal inspection. Neck supple. No lymph nodes noted. No crepitus CVS: Normal heart rate and rhythm. Pulses normal. Normal S1 and S2 Respiratory: No respiratory distress. Breath sounds normal. No Wheezing. No rales Abdomen: Soft and nontender. No rigidity. No distention. Skin: Skin warm and dry. Normal skin color. Normal skin turgor. Couple of scars in both upper extremities, no new lacerations Extremities: No lower extremity edema. No Lacerations. No Rash Neuro: No motor deficit. No sensory deficit. Moving all extremities. No slurred speech. CN 2 through 12 grossly intact Psych: Patient is very anxious, pacing in circles, crying, wanting to get hugged by her nurse for comfort Course Course Course Narrative: Patient is known to the emergency room. However, usually patient does not come this anxious, crying, pacing and complaining of hallucinations. Patient states she has suicidal ideation. Patient states that she will take 2 mg p.o. of Ativan Behavioral health consult pending Physician observation started it is 18:50 Discharge Plan Discharge Clinical Impression: Anxiety, Suicidal ideation Patient Disposition: Still a Patient Prescriptions: No Action metformin 500 mg tablet 1 tab PO BID 0RF atorvastatin 10 mg tablet 1 tab PO DAILY 0RF verapamil 240 mg tablet extended release 1 tab PO BEDTIME 0RF montelukast 10 mg tablet 1 tab PO BEDTIME 0RF Flovent HFA 110 mcg/actuation HFA aerosol inhaler 2 puff inhalation BID 0RF albuterol sulfate [Ventolin HFA] 90 mcg/actuation HFA aerosol inhaler 2 puff inhalation Q4H PRN (Reason: Shortness Of Breath) 0RF trazodone 150 mg tablet 150 mg PO BEDTIME PRN (Reason: insomnia) 0RF benztropine 1 mg tablet 1 mg PO BID 0RF naproxen 500 mg tablet 1 tab PO BID 0RF docusate sodium [Colace] 100 mg capsule 100 mg PO BID Qty: 60 0RF fluoxetine 20 mg Capsule 40 mg PO DAILY 30 Days Qty: 60 0RF prazosin 1 mg Capsule 4 mg PO BEDTIME 30 Days Qty: 120 0RF Protocol: Hold for SBP< HOLD for SBP < : 90 mirtazapine 7.5 mg Tablet 7.5 mg PO BEDTIME MRX1 30 Days Qty: 60 0RF lisinopril 5 mg tablet 1 tab PO DAILY 0RF ondansetron 4 mg tablet,disintegrating 4 mg PO Q6-8H PRN (Reason: nausea and vomiting) Qty: 14 0RF chlorpromazine 25 mg tablet 3 tab PO Q8H PRN (Reason: Agitation) 0RF
[2022-03-02 18:48] VITALS: BP 138/104; PULSE 136; RESP 20; TEMP 36.8; O2SAT 96; BMI 32.3
[2022-03-02] MEDS: LORazepam 1 MG TABLET 2 MG PO (18:54)
[2022-03-02 19:21] LABS: COVID-19 Test Negative (Negative)
[2022-03-02 20:38] LABS: UPreg QC Valid YES; Urine Pregnancy NEGATIVE (NEGATIVE)
[2022-03-02 20:41] LABS: Amphetamine Screen Urine Not Detected (Not Detect); Barbiturates, Urine Not Detected (Not Detect); Benzodiazepines Screen Urine Not Detected (Not Detect); Cannabinoid Screen Urine Not Detected (Not Detect); Cocaine Screen Urine Not Detected (Not Detect); Fentanyl, urine Not Detected (Not Detect); Opiate Screen Urine Not Detected (Not Detect); Phencyclidine Screen Urine Not Detected (Not Detect)
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
== END 2022-03-02 22:14 | disposition home or self-care (01) ==
PROVIDERS: Emergency Provider Emergency Medicine
DX: F41.1 Generalized anxiety disorder (principal); R45.851 Suicidal ideations; F17.210 Nicotine dependence, cigarettes, uncomplicated; Z20.822 Contact with and (suspected) exposure to COVID-19; Z71.6 Tobacco abuse counseling; Z79.899 Other long term (current) drug therapy
CPT/HCPCS: 80307; 81025; 87635; 99281; 99284

== ENCOUNTER 2022-03-16 19:31 | Emergency (ER) | payer MEDICARE, MEDICAID, SELFPAY ==
[2022-03-16 19:38] VITALS: BP 137/80; PULSE 86; RESP 18; TEMP 36.4; O2SAT 96; BMI 39.5
[2022-03-16 20:12] LABS: Basophils Percent Auto 0.3 % (0-2); Eosinophils Absolute Auto 0.3 X10*3/uL (0.0-0.4); Eosinophils Percent Auto 5.1 % (0-4); Hematocrit 35.5 % (37.0-47.0); Hemoglobin 11.8 g/dl (12.0-16.0); Imm Gran Abs Auto 0.07 X10*3/uL (0.00-0.03); Imm Gran Pct Auto 1.1 % (0.0-0.4); Lymphocytes Percent Auto 32.4 % (20-40); MANUAL DIFF FLAG NO; Mean Corpuscular HGB Conc 33.2 g/dl (31.0-35.0); Mean Corpuscular Hemoglobin 29.1 pg (27.0-33.0); Mean Corpuscular Volume 87.7 fL (80.0-98.0); Mean Platelet Volume 9.5 fL (9.4-12.3); Monocytes Absolute Auto 0.6 X10*3/uL (0.1-1.2); Monocytes Percent Auto 9.7 % (2-11); Neutrophils Absolute Auto 3.2 x10*3/uL (2.0-8.3); Neutrophils Percent Auto 51.4 % (45-73); Platelet Count 271 X10*3/uL (160-400); Red Blood Count 4.05 X10*6/uL (4.20-5.50); Red Cell Distribution Width 13.5 % (11.0-16.0); White Blood Count 6.3 X10*3/uL (4.8-10.8)
--- NOTE | 2022-03-16 20:19 | ED_ITS ---
HPI - Psych General Chief Complaint: Psychiatric Symptoms <TIMI Cruz - Last Filed: 03/16/22 21:54> Stated Complaint: Crisis <TIMI Cruz Last Filed: 03/16/22 21:54> Time Seen by Provider: 03/16/22 20:19 <TIMI Cruz Last Filed: 03/16/22 21:54> Source: patient and EMS <TIMI Cruz - Last Filed: 03/16/22 21:54> Mode of arrival: EMS <TIMI Cruz Last Filed: 03/16/22 21:54> Limitations: no limitations <TIMI Cruz Last Filed: 03/16/22 21:54> History of Present Illness HPI Narrative: 46-year-old female past medical history borderline personality disorder, depression, anxiety, bipolar 2 with melancholic features, PTSD, DM, GERD presents to the ED with complaints panic attack x1 day. Patient tells me that she is very anxious could she started a new program today, she tells me she felt extremely overwhelmed but after she finished the program and thought about it she felt extremely happy that she is in it. She tells me that initially she started hearing voices that were telling her to hurt herself, she was not feeling suicidal, she tells me she did not hurt herself or cut herself. Denies tactile hallucinations. She denies homicidal ideation.? Denies drugs, and alcohol. .? Denies medical complaints at this time.? <TIMI Cruz - Last Filed: 03/16/22 21:54> MD complaint: feels depressed and anxiety <TIMI Cruz Last Filed: 03/16/22 21:54> Onset (ago): day(s) (1) <TIMI Cruz Last Filed: 03/16/22 21:54> Duration: constant <TIMI Cruz Last Filed: 03/16/22 21:54> History of same: Yes <TIMI Cruz Last Filed: 03/16/22 21:54> Relieving factors: none <TIMI Cruz - Last Filed: 03/16/22 21:54> Exacerbating factors: none <TIMI Cruz Last Filed: 03/16/22 21:54> Associated psychiatric symptoms: none <TIMI Cruz Last Filed: 03/16/22 21:54> Associated symptoms: denies other symptoms <TIMI Cruz Last Filed: 03/16/22 21:54> Treatments prior to arrival: none <TIMI Cruz - Last Filed: 03/16/22 21:54> Related Data Home Medications: Home Medications Medication Instructions Recorded Confirmed atorvastatin 10 mg tablet 1 tab PO DAILY 05/29/21 03/16/22 fluticasone propionate 110 2 puff INHALATION BID 05/29/21 03/16/22 mcg/actuation HFA aerosol inhaler (Flovent HFA) metformin 500 mg tablet 1 tab PO BID 05/29/21 03/16/22 montelukast 10 mg tablet 1 tab PO BEDTIME 05/29/21 03/16/22 verapamil 240 mg tablet,extended 240 mg PO BEDTIME 05/29/21 03/16/22 release albuterol sulfate 90 mcg/actuation 2 puff INHALATION Q4H PRN 06/15/21 03/16/22 aerosol inhaler (Ventolin HFA) trazodone 150 mg tablet 150 mg PO BEDTIME PRN 11/05/21 03/16/22 lisinopril 5 mg tablet 1 tab PO DAILY 11/14/21 03/16/22 benztropine 1 mg tablet 1 mg PO BID 12/26/21 03/16/22 naproxen 500 mg tablet 1 tab PO BID 01/23/22 03/16/22 Previous Rx's Medication Instructions Recorded fluoxetine 20 mg capsule 40 mg PO DAILY 30 Days #60 cap 09/29/21 mirtazapine 7.5 mg tablet 7.5 mg PO BEDTIME MRX1 30 Days #60 10/18/21 tab prazosin 1 mg capsule 4 mg PO BEDTIME 30 Days #120 cap 10/18/21 ondansetron 4 mg disintegrating 4 mg PO Q6-8H PRN #14 tab 02/04/22 tablet docusate sodium 100 mg capsule 100 mg PO BID #60 cap 02/07/22 (Colace) <TIMI Cruz Last Filed: 03/16/22 21:54> Allergies/Adverse Reactions: Allergies Allergy/AdvReac Type Severity Reaction Status Date / Time Fish Containing Products Allergy Severe ANAPHYLAXIS Verified 02/23/22 16:21 codeine [Codeine] Allergy Unknown RASH Verified 02/23/22 16:21 Penicillins Allergy Unknown RASH Verified 02/23/22 16:21 prednisone [Prednisone] Allergy Unknown RASH Verified 02/23/22 16:21 Sulfa (Sulfonamide Allergy Unknown RASH Verified 02/23/22 16:21 Antibiotics) [Sulfa (Sulfonamides)] azithromycin [AZITHROMYCIN] AdvReac Severe RASH Verified 02/23/22 16:21 nicotine AdvReac Unknown HEART Verified 02/23/22 16:21 PALPITATION TO NICOTINE GUM Seafood Allergy Severe ANAPHYLAXIS Uncoded 11/05/21 21:13 From Geodon Allergy Unknown DYSURIA, Uncoded 11/05/21 21:13 RASH <TIMI Cruz Last Filed: 03/16/22 21:54> Review of Systems Review of Systems: Constitutional : No Weight loss, No Fever, No Chills, No Fatigue, No Malaise ENT/Mouth : No sore throat, No Rhinorrhea Eyes: No Eye Pain, No Swelling, No Redness Cardiovascular : No Chest Pain, No SOB, No Dyspnea on Exertion, No Orthopnea, No Edema, No Palpitations Respiratory : No Cough, No Sputum, No Wheezing Gastrointestinal : No Nausea, No Vomiting, No Diarrhea, No Constipation, No abdominal Pain, No Hematochezia, No Melena Genitourinary : No Dysuria, No Urinary Frequency, No Hematuria, Musculoskeletal : No joint pain, No Myalgias, No Joint Swelling Skin : No Skin Lesions, No rash Neuro : No Weakness, No Numbness, No Dizziness, No Headache Psych : + Anxiety/Panic, + Depression, No suicidal ideation, No homicidal ideation All other systems reviewed and are negative? Yes all other systems are reviewed and are negative? Yes all other systems are reviewed and are negative <TIMI Cruz Last Filed: 03/16/22 21:54> Yes all other systems are reviewed and are negative <TIMI Cruz Last Filed: 03/16/22 21:54> FOR[facility]LY [facility] Past Medical History Attestation statement: The following information was validated with the patient. <TIMI Cruz - Last Filed: 03/16/22 21:54> Source: old records reviewed and nursing notes reviewed <TIMI Cruz - Last Filed: 03/16/22 21:54> Medical History: Medical History Acetaminophen overdose Borderline personality disorder Bronchitis Depression Diabetes type 2, controlled GERD (gastroesophageal reflux disease) History of attempted suicide History of non-suicidal self-harm Hyperlipidemia Hypomagnesemia MDD (major depressive disorder), recurrent episode, severe Mood disorder Overdose PTSD (post-traumatic stress disorder) Suicide attempt Suicide attempt by acetaminophen overdose <TIMI Cruz - Last Filed: 03/16/22 21:54> Social History Social History: Social History 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: None 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 Other:: Patient lives in [facility]. 4 in total live in [facility]. Housing: Other Housing Other:: [facility] Do you presently have visiting nurse or other home services: No Unable to assess alcohol history related to: Unknown Alcohol intake: never Patient Tobacco Use Status: Current everyday Tobacco user Tobacco use type: Cigarette Cigarette Packs Per Day: 1 Cigarettes Per Day: 20 Years Smoked: 20 e-Cigarette/Vaping Use: Never Used Substance Use Type: Caffiene Advance Directives: No Advance Directives Information Provided: No service: No Current occupational status: disabled Sexual orientation: Don't Know <TIMI Cruz - Last Filed: 03/16/22 21:54> Physical Exam Vital Signs: Vital Signs: Last Vital Signs Temp 97.6 F 03/16/22 19:38 Pulse 86 03/16/22 19:38 Resp 18 03/16/22 19:38 BP 137/80 03/16/22 19:38 Pulse Ox 96 03/16/22 19:38 BMI result Body Mass Index 39.5 vss <TIMI Cruz - Last Filed: 03/16/22 21:54> Appearance: Alert.? Oriented X3.? No acute distress.? Head:? Normocephalic, atraumatic, no step-offs or deformities Eyes: Pupils equal, round and reactive to light.? ENT: Pharynx normal.? Neck: Normal inspection.? Neck supple.? CVS: Normal heart rate and rhythm.? Pulses normal.? Respiratory: No respiratory distress.? Breath sounds normal.? Abdomen: Soft and nontender.? Skin: Skin warm and dry.? Normal skin color.? Normal skin turgor.?+ old scarred self-inflicted wounds to abdomen, bilateral ventral aspects of forearms Extremities: No lower extremity edema.? No calf ttp.? 5/5 strength to bilateral upper and lower extremities Back:? No midline tenderness, no C-spine tenderness, full range of motion, no CVA tenderness bilaterally Neuro: Oriented X 3.? No motor deficit.? No sensory deficit. CN 2-12 intact <TIMI Cruz - Last Filed: 03/16/22 21:54> Course Reevaluation(s) Reevaluation #1: CBC appears to be around patient's baseline. Chemistry with no acute findings. Salicylates negative. Acetaminophen negative. Ethanol negative. COVID negative. Patient tells me she does not need to PE right now, no urinary symptoms. Patient was evaluated by the care team, tells me that patient was hav ing auditory command hallucinations at her [facility] after stressful day. Patient is requesting to go back. She denies suicidal and homicidal ideation. She recently started [facility] through [facility] which patient is excited to go to tomorrow. Patient recently had a hospital admission and was store where her medications were changed, patient has been feeling better since the medication change. Patient tells me she is feeling much better and at this time she would like to be discharged back to her [place] [facility]. At this time denies suicidal and homicidal ideation. I feel comfortable this plan. <TIMI Cruz - Last Filed: 03/16/22 21:54> Time: 21:53 <TIMI Cruz - Last Filed: 03/16/22 21:54> MDM - Psych MDM Narrative Medical decision making narrative: 2020 46-year-old female presents with acute panic attack after starting a new day program, with some visual and auditory hallucinations x1 day.? Brought in via ambulance. Physical exam significant for old self inflicted wounds to arms, abdomen. Regular rate and rhythm.? Lungs clear.? Neuro exam nonfocal.? Abdomen soft nontender nondistended. Plan at this time is medical clearance and evaluation by the behavioral health team. <TIMI Cruz - Last Filed: 03/16/22 21:54> Medical Records Attestation: I reviewed the patient's medical records. <TIMI Cruz - Last F iled: 03/16/22 21:54> Lab Data Attestation: I reviewed the patient's lab results. <TIMI Cruz - Last Filed: 03/16/22 21:54> Result diagrams: : 03/16/22 20:05 03/16/22 20:05 <TIMI Cruz - Last Filed: 03/16/22 21:54> Labs: Lab Results 03/16/22 03/16/22 03/16/22 Range/Units 19:55 20:05 20:05 WBC 6.3 (4.8-10.8) X10*3/uL RBC 4.05 L (4.20-5.50) X10*6/uL Hgb 11.8 L (12.0-16.0) g/dl Hct 35.5 L (37.0-47.0) % MCV 87.7 (80.0-98.0) fL MCH 29.1 (27.0-33.0) pg MCHC 33.2 (31.0-35.0) g/dl RDW 13.5 (11.0-16.0) % Plt Count 271 (160-400) X10*3/uL MPV 9.5 (9.4-12.3) fL Immature Gran % (Auto) 1.1 H (0.0-0.4) % Neut % (Auto) 51.4 (45-73) % Lymph % (Auto) 32.4 (20-40) % Christian % (Auto) 9.7 (2-11) % Eos % (Auto) 5.1 H (0-4) % Baso % (Auto) 0.3 (0-2) % Lymph # (Auto) 2.0 (1.2-4.9) X10*3/uL Christian # (Auto) 0.6 (0.1-1.2) X10*3/uL Eos # (Auto) 0.3 (0.0-0.4) X10*3/uL Baso # (Auto) 0.0 (0.0-0.2) X10*3/uL Abs Immat Gran (auto) 0.07 H (0.00-0.03) X10*3/uL Absolute Neuts (auto) 3.2 (2.0-8.3) x10*3/uL Absolute Nucleated RBC 0.000 (0.0-0.012) X10*3/uL Nucleated RBC % (auto) 0.0 (0.0-0.2) /100WBC Sodium 138 (135-145) mmol/L Potassium 4.1 (3.3-5.1) mmol/L Chloride 108 (96-108) mmol/L Carbon Dioxide 22 (22-29) mmol/L Anion Gap 12 (12-20) BUN 13 (9-16) mg/dL Creatinine 0.81 (0.5-1.4) mg/dL Estim Creat Clear Calc 111.9 Estimated GFR > 60 Random Glucose 94 (60-115) mg/dL Calcium 9.0 (8.4-10.2) mg/dL Salicylates < 5.0 L (15-30) mg/dL Acetaminophen < 1 (<30) mcg/mL Ethyl Alcohol mg/dL COVID-19 (NICK) Negative (Negative) COVID-19 Clin Com See Note 03/16/22 Range/Units 20:05 WBC (4.8-10.8) X10*3/uL RBC (4.20-5.50) X10*6/uL Hgb (12.0-16.0) g/dl Hct (37.0-47.0) % MCV (80.0-98.0) fL MCH (27.0-33.0) pg MCHC (31.0-35.0) g/dl RDW (11.0-16.0) % Plt Count (160-400) X10*3/uL MPV (9.4-12.3) fL Immature Gran % (Auto) (0.0-0.4) % Neut % (Auto) (45-73) % Lymph % (Auto) (20-40) % Christian % (Auto) (2-11) % Eos % (Auto) (0-4) % Baso % (Auto) (0-2) % Lymph # (Auto) (1.2-4.9) X10*3/uL Christian # (Auto) (0.1-1.2) X10*3/uL Eos # (Auto) (0.0-0.4) X10*3/uL Baso # (Auto) (0.0-0.2) X10*3/uL Abs Immat Gran (auto) (0.00-0.03) X10*3/uL Absolute Neuts (auto) (2.0-8.3) x10*3/uL Absolute Nucleated RBC (0.0-0.012) X10*3/uL Nucleated RBC % (auto) (0.0-0.2) /100WBC Sodium (135-145) mmol/L Potassium (3.3-5.1) mmol/L Chloride (96-108) mmol/L Carbon Dioxide (22-29) mmol/L Anion Gap (12-20) BUN (9-16) mg/dL Creatinine (0.5-1.4) mg/dL Estim Creat Clear Calc Estimated GFR Random Glucose (60-115) mg/dL Calcium (8.4-10.2) mg/dL Salicylates (15-30) mg/dL Acetaminophen (<30) mcg/mL Ethyl Alcohol < 10 mg/dL COVID-19 (NICK) (Negative) COVID-19 Clin Com <TIMI Cruz - Last Filed: 03/16/22 21:54> Critical Care Time Critical Care Time Critical Care Time: No <TIMI Cruz Last Filed: 03/16/22 21:54> Discharge Plan Discharge Clinical Impression: Acute anxiety <TIMI Cruz Last Filed: 03/16/22 21:54> Patient Disposition: Home, Self-Care <TIMI Cruz Last Filed: 03/16/22 21:54> Instructions: Panic Disorder (ED), Anxiety (ED) <TIMI Cruz - Last Filed: 03/16/22 21:54> Additional Instructions: Take your medications as prescribed. If you were prescribed antibiotics today, it is important that you take your medication to their entirety, do not skip any doses, do not finish them early. Follow-up with your primary care provider this week. Return to the emergency department with new or worsening symptoms. Such as fevers, chills, chest pain, shortness of breath, nausea, vomiting, dizziness, headache, vision changes, lethargy, suicidal ideation, homicidal ideation, visual, auditory tactile hallucinations. In case of emergency call 911 <TIMI Cruz - Last Filed: 03/16/22 21:54> Prescriptions: No Action metformin 500 mg tablet 1 tab PO BID 0RF atorvastatin 10 mg tablet 1 tab PO DAILY 0RF verapamil 240 mg tablet extended release 240 mg PO BEDTIME 0RF montelukast 10 mg tablet 1 tab PO BEDTIME 0RF Flovent HFA 110 mcg/actuation HFA aerosol inhaler 2 puff inhalation BID 0RF albuterol sulfate [Ventolin HFA] 90 mcg/actuation HFA aerosol inhaler 2 puff inhalation Q4H PRN (Reason: Shortness Of Breath) 0RF trazodone 150 mg tablet 150 mg PO BEDTIME PRN (Reason: insomnia) 0RF benztropine 1 mg tablet 1 mg PO BID 0RF naproxen 500 mg tablet 1 tab PO BID 0RF docusate sodium [Colace] 100 mg capsule 100 mg PO BID Qty: 60 0RF fluoxetine 20 mg Capsule 40 mg PO DAILY 30 Days Qty: 60 0RF prazosin 1 mg Capsule 4 mg PO BEDTIME 30 Days Qty: 120 0RF Protocol: Hold for SBP< HOLD for SBP < : 90 mirtazapine 7.5 mg Tablet 7.5 mg PO BEDTIME MRX1 30 Days Qty: 60 0RF lisinopril 5 mg tablet 1 tab PO DAILY 0RF ondansetron 4 mg tablet,disintegrating 4 mg PO Q6-8H PRN (Reason: nausea and vomiting) Qty: 14 0RF <TIMI Cruz Last Filed: 03/16/22 21:54> Referrals: Maribel Marquez NP [Primary Care Provider] - 2 days <TIMI Cruz - Last Filed: 03/16/22 21:54>
[2022-03-16 20:24] LABS: Ethanol < 10 mg/dL
[2022-03-16 20:27] LABS: COVID-19 Test Negative (Negative); IDNOW Serial# 9DB6401D
[2022-03-16 20:28] LABS: Acetaminophen LAB < 1 mcg/mL (<30); Anion Gap 12 (12-20); Blood Urea Nitrogen 13 mg/dL (9-16); Carbon Dioxide 22 mmol/L (22-29); Chloride 108 mmol/L (96-108); Creatinine Clr Calc Pharmacy 111.9; Estimated Glomerular Filt Rate > 60; Glucose Random 94 mg/dL (60-115); Potassium 4.1 mmol/L (3.3-5.1); Salicylate < 5.0 mg/dL (15-30); Sodium 138 mmol/L (135-145)
--- NOTE | 2022-03-16 21:36 | MHC.CARE ---
Pt presents to [facility] following a panic attack. Pt states she was released from [facility] on Sunday and had been there for 9 days. She states she has been working with a field marketing specialist from [facility] that has been helpful but when she left today she became anxious and was brought to the ED. Pt states she is at the [facility] through [facility], which she identifies she likes and her individual therapist also helps out on so she likes seeing her therapist. Pt is requesting to be d/c. She is at her baseline. She denies any SI/HI, AH/VH and SIB. She last cut yesterday superficially with the makeup cover. She states she will tell staff to remove it and they are considering moving her room upstairs. Pt states her plan is to return home go to sleep and go to her day program tomorrow that started today. She reports it is from 06-17 and then she will sleep. Pt denies active SI, AH. Case discussed with ED provider Sheree Miles
== END 2022-03-16 22:27 | disposition home or self-care (01) ==
PROVIDERS: Physician Assistant; Emergency Provider Emergency Medicine; PCP Nurse Practitioner Family
DX: F41.9 Anxiety disorder, unspecified (principal); F33.9 Major depressive disorder, recurrent, unspecified; F31.81 Bipolar II disorder; F43.10 Post-traumatic stress disorder, unspecified; E11.9 Type 2 diabetes mellitus without complications; F17.210 Nicotine dependence, cigarettes, uncomplicated; Z79.84 Long term (current) use of oral hypoglycemic drugs; Z79.899 Other long term (current) drug therapy; Z91.51 Personal history of suicidal behavior; Z91.52 Personal history of nonsuicidal self-harm; Z20.822 Contact with and (suspected) exposure to COVID-19
CPT/HCPCS: 36415; 80048; 80143; 80179; 82077; 85025; 87635; 99281; 99283

== ENCOUNTER 2022-03-19 11:50 | Emergency (ER) | payer MEDICARE, MEDICAID, SELFPAY ==
[2022-03-19 12:28] VITALS: BP 140/88; BP 142/90; PULSE 102; PULSE 104; RESP 18; TEMP 36.9; O2SAT 96; O2SAT 98; BMI 39.0
[2022-03-19 13:14] LABS: Amphetamine Screen Urine Not Detected (Not Detect); Barbiturates, Urine Not Detected (Not Detect); Benzodiazepines Screen Urine Not Detected (Not Detect); Cannabinoid Screen Urine Not Detected (Not Detect); Cocaine Screen Urine Not Detected (Not Detect); Fentanyl, urine POSITIVE (Not Detect); Opiate Screen Urine Not Detected (Not Detect); Phencyclidine Screen Urine Not Detected (Not Detect)
[2022-03-19 13:16] LABS: COVID-19 Test Positive (Negative); IDNOW Serial# 16C4AD1C
--- NOTE | 2022-03-19 13:21 | ED.PSYCH ---
HPI - Psych General Chief Complaint: Psychiatric Symptoms Stated Complaint: SECTION 12,AUDITORY HALUCINATION TO HARM SELF Time Seen by Provider: 03/19/22 13:20 Source: patient Mode of arrival: ambulatory Limitations: no limitations History of Present Illness HPI Narrative: ?46-year-old female past medical history borderline personality disorder, depression, anxiety, bipolar 2 with melancholic features, PTSD, DM, GERD presents to the ED with complaints anxiety, paranoia at x1 day. Patient tells me that today she is feeling anxious and she feels like the staff members of her fpc or out to get her, she tells me she feels like she has no one to talk to there. She has a small self infected wound to left wrist. She also reports that recently they stopped her Thorazine. Patient reports that she is hearing and seeing things. Denies tactile hallucinations. Denies drugs, alcohol and tobacco. Denies suicidal and homicidal ideation at this time. MD complaint: anxiety and hallucinations Onset (ago): day(s) (1) Duration: constant History of same: Yes Relieving factors: none Exacerbating factors: none Associated psychiatric symptoms: none Associated symptoms: denies other symptoms Treatments prior to arrival: none Related Data Home Medications Medication Instructions Recorded Confirmed atorvastatin 10 mg tablet 1 tab PO DAILY 05/29/21 03/19/22 fluticasone propionate 110 2 puff INHALATION BID 05/29/21 03/19/22 mcg/actuation HFA aerosol inhaler (Flovent HFA) metformin 500 mg tablet 1 tab PO BID 05/29/21 03/19/22 montelukast 10 mg tablet 1 tab PO BEDTIME 05/29/21 03/19/22 verapamil 240 mg tablet,extended 240 mg PO BEDTIME 05/29/21 03/19/22 release albuterol sulfate 90 mcg/actuation 2 puff INHALATION Q4H PRN 06/15/21 03/19/22 aerosol inhaler (Ventolin HFA) trazodone 150 mg tablet 150 mg PO BEDTIME PRN 11/05/21 03/19/22 lisinopril 5 mg tablet 1 tab PO DAILY 11/14/21 03/19/22 benztropine 1 mg tablet 1 mg PO DAILY 12/26/21 03/19/22 naproxen 500 mg tablet 1 tab PO BID 01/23/22 03/16/22 fluphenazine HCl 2.5 mg tablet 1 tab PO BEDTIME 03/19/22 fluphenazine HCl 5 mg tablet 1 tab PO BEDTIME 03/19/22 Previous Rx's Medication Instructions Recorded fluoxetine 20 mg capsule 40 mg PO DAILY 30 Days #60 cap 09/29/21 mirtazapine 7.5 mg tablet 7.5 mg PO BEDTIME MRX1 30 Days #60 10/18/21 tab prazosin 1 mg capsule 4 mg PO BEDTIME 30 Days #120 cap 10/18/21 ondansetron 4 mg disintegrating 4 mg PO Q6-8H PRN #14 tab 02/04/22 tablet docusate sodium 100 mg capsule 100 mg PO BID #60 cap 02/07/22 (Colace) Allergies Allergy/AdvReac Type Severity Reaction Status Date / Time Fish Containing Products Allergy Severe ANAPHYLAXIS Verified 02/23/22 16:21 codeine [Codeine] Allergy Unknown RASH Verified 02/23/22 16:21 Penicillins Allergy Unknown RASH Verified 02/23/22 16:21 prednisone [Prednisone] Allergy Unknown RASH Verified 02/23/22 16:21 Sulfa (Sulfonamide Allergy Unknown RASH Verified 02/23/22 16:21 Antibiotics) [Sulfa (Sulfonamides)] azithromycin [AZITHROMYCIN] AdvReac Severe RASH Verified 02/23/22 16:21 nicotine AdvReac Unknown HEART Verified 02/23/22 16:21 PALPITATION TO NICOTINE GUM Seafood Allergy Severe ANAPHYLAXIS Uncoded 11/05/21 21:13 From Geodon Allergy Unknown DYSURIA, Uncoded 11/05/21 21:13 RASH Review of Systems Review of Systems: Constitutional : No Weight loss, No Fever, No Chills, No Fatigue, No Malaise ENT/Mouth : No sore throat, No Rhinorrhea Eyes: No Eye Pain, No Swelling, No Redness Cardiovascular : No Chest Pain, No SOB, No Dyspnea on Exertion, No Orthopnea, No Edema, No Palpitations Respiratory : No Cough, No Sputum, No Wheezing Gastrointestinal : No Nausea, No Vomiting, No Diarrhea, No Constipation, No abdominal Pain, No Hematochezia, No Melena Genitourinary : No Dysuria, No Urinary Frequency, No Hematuria, Musculoskeletal : No joint pain, No Myalgias, No Joint Swelling Skin : No Skin Lesions, No rash Neuro : No Weakness, No Numbness, No Dizziness, No Headache Psych : + Anxiety/Panic, + Depression, No suicidal ideation, No homicidal ideation Yes all other systems are reviewed and are negative [facility] Past Medical History Attestation statement: The following information was validated with the patient. Source: old records reviewed and nursing notes reviewed Medical History Acetaminophen overdose Borderline personality disorder Bronchitis Depression Diabetes type 2, controlled GERD (gastroesophageal reflux disease) History of attempted suicide History of non-suicidal self-harm Hyperlipidemia Hypomagnesemia MDD (major depressive disorder), recurrent episode, severe Mood disorder Overdose PTSD (post-traumatic stress disorder) Suicide attempt Suicide attempt by acetaminophen overdose Social History Social History 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: None 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 Other:: Patient lives in [facility]pc. 4 in total live in fpc. Housing: Other Housing Other:: fpc Do you presently have visiting nurse or other home services: No Unable to assess alcohol history related to: Unknown Alcohol intake: never Patient Tobacco Use Status: Current everyday Tobacco user Tobacco use type: Cigarette Cigarette Packs Per Day: 1 Cigarettes Per Day: 20 Years Smoked: 20 e-Cigarette/Vaping Use: Never Used Substance Use Type: Caffiene Advance Directives: No Advance Directives Information Provided: No service: No Current occupational status: disabled Sexual orientation: Don't Know Physical Exam Vital Signs: Vital Signs: Last Vital Signs Temp 98.4 F 03/19/22 12:28 Pulse 102 H 03/19/22 12:28 Resp 18 03/19/22 12:28 BP 140/88 H 03/19/22 12:28 Pulse Ox 96 03/19/22 12:28 BMI result Body Mass Index 39.0 VSS Appearance: Alert.? Oriented X3.? No acute distress.? Head:? Normocephalic, atraumatic, no step-offs or deformities Eyes: Pupils equal, round and reactive to light.? ENT: Pharynx normal.? Neck: Normal inspection.? Neck supple.? CVS: Normal heart rate and rhythm.? Pulses normal.? Respiratory: No respiratory distress.? Breath sounds normal.? Abdomen: Soft and nontender.? Skin: Skin warm and dry.? Normal skin color.? Normal skin turgor.?+ old scarred self-inflicted wounds to abdomen, bilateral ventral aspects of forearms Extremities: No lower extremity edema.? No calf ttp.? 5/5 strength to bilateral upper and lower extremities Back:? No midline tenderness, no C-spine tenderness, full range of motion, no CVA tenderness bilaterally Neuro: Oriented X 3.? No motor deficit.? No sensory deficit. CN 2-12 intact Course Reevaluation(s) Reevaluation #1: Patient is noted to be incidentally COVID positive. Patient no symptoms, denies chest pain, shortness of breath, fevers, chills, upper respiratory symptoms. Patient is vaccinated with Pfizer x2. She denies any recent sick contacts. At this time basic labs will be obtained. Time: 14:22 Reevaluation #2: Patient now tells me that she is suicidal, shows me 1 of her notes she wrote. Note is attached to chart Time: 14:51 Reevaluation #3: Patient's CBC appears to be at baseline. No acute electrolyte abnormalities requiring intervention. Patient appears well, O2 saturation even after ambulation 96%. Urine toxicology positive for fentanyl however I suspect that this is secondary to psychiatric medications. At this time I do not suspect ACS, PE or pneumonia. Time: 14:52 Additional Reevaluation(s): Patient feeling better at this time, denying SI and HI, met with [facility] Care team she appears well excited to get out of here, CARE team feels comfortable with patient being dc back to fpc i agree. Care team touch base with patient's fpc however they are short staffed and they do not have anyone who can come pick her up at this time. Since patient is COVID positive we are unable to send her by lift, or Uber. 1915 At this time patient has been placed in physician observation to allow more time for us to find transportation for this patient. At time observation was started patient common cooperative no acute distress. Vital signs stable. Will continue to monitor. MDM - Psych MDM Narrative Medical decision making narrative: 1322 46-year-old female presents with anxiety and paranoia x1 day.? Brought in via ambulance. Physical exam significant for old self inflicted wounds to arms, abdomen. Regular rate and rhythm.? Lungs clear.? Neuro exam nonfocal.? Abdomen soft nontender nondistended. Plan at this time is medical clearance and evaluation by the behavioral health team. Will order TORRES, COVID swab on this patient. At this time I do not feel as though labs are necessary as patient was seen here on 03/16/2022 all her labs are within normal limits, no electrolyte abnormalities requiring intervention. Patient is denying any medical complaints at this time for this reason I do not feel as though it is appropriate to do laboratory studies at this time. Medical Records Attestation: I reviewed the patient's medical records. Lab Data Attestation: I reviewed the patient's lab results. Result diagrams: 03/19/22 14:17 03/19/22 14:17 Labs: Lab Results 03/19/22 03/19/22 03/19/22 Range/Units 12:51 12:52 14:17 WBC 7.3 (4.8-10.8) X10*3/uL RBC 3.98 L (4.20-5.50) X10*6/uL Hgb 11.6 L (12.0-16.0) g/dl Hct 35.2 L (37.0-47.0) % MCV 88.4 (80.0-98.0) fL MCH 29.1 (27.0-33.0) pg MCHC 33.0 (31.0-35.0) g/dl RDW 13.3 (11.0-16.0) % Plt Count 301 (160-400) X10*3/uL MPV 9.7 (9.4-12.3) fL Immature Gran % (Auto) 0.7 H (0.0-0.4) % Neut % (Auto) 61.5 (45-73) % Lymph % (Auto) 25.2 (20-40) % [place] % (Auto) 8.3 (2-11) % Eos % (Auto) 4.0 (0-4) % Baso % (Auto) 0.3 (0-2) % Lymph # (Auto) 1.8 (1.2-4.9) X10*3/uL [place] # (Auto) 0.6 (0.1-1.2) X10*3/uL Eos # (Auto) 0.3 (0.0-0.4) X10*3/uL Baso # (Auto) 0.0 (0.0-0.2) X10*3/uL Abs Immat Gran (auto) 0.05 H (0.00-0.03) X10*3/uL Absolute Neuts (auto) 4.5 (2.0-8.3) x10*3/uL Absolute Nucleated RBC 0.000 (0.0-0.012) X10*3/uL Nucleated RBC % (auto) 0.0 (0.0-0.2) /100WBC Sodium (135-145) mmol/L Potassium (3.3-5.1) mmol/L Chloride (96-108) mmol/L Carbon Dioxide (22-29) mmol/L Anion Gap (12-20) BUN (9-16) mg/dL Creatinine (0.5-1.4) mg/dL Estim Creat Clear Calc Estimated GFR Random Glucose (60-115) mg/dL Calcium (8.4-10.2) mg/dL Magnesium (1.6-2.6) mg/dL Total Bilirubin (0.0-1.0) mg/dL AST (5-31) U/L ALT (0-31) U/L Alkaline Phosphatase (39-117) U/L Total Protein (6.5-8.0) g/dL Albumin (3.5-5.0) g/dL Urine Opiates Screen Not Detected (Not Detect) Urine Fentanyl Screen POSITIVE H (Not Detect) Ur Barbiturates Screen Not Detected (Not Detect) Ur Phencyclidine Scrn Not Detected (Not Detect) Ur Amphetamines Screen Not Detected (Not Detect) U Benzodiazepines Scrn Not Detected (Not Detect) Urine Cocaine Screen Not Detected (Not Detect) U Marijuana (THC) Screen Not Detected (Not Detect) COVID-19 (NICK) Positive A (Negative) COVID-19 Clin Com See Note 03/19/22 Range/Units 14:17 WBC (4.8-10.8) X10*3/uL RBC (4.20-5.50) X10*6/uL Hgb (12.0-16.0) g/dl Hct (37.0-47.0) % MCV (80.0-98.0) fL MCH (27.0-33.0) pg MCHC (31.0-35.0) g/dl RDW (11.0-16.0) % Plt Count (160-400) X10*3/uL MPV (9.4-12.3) fL Immature Gran % (Auto) (0.0-0.4) % Neut % (Auto) (45-73) % Lymph % (Auto) (20-40) % [place] % (Auto) (2-11) % Eos % (Auto) (0-4) % Baso % (Auto) (0-2) % Lymph # (Auto) (1.2-4.9) X10*3/uL [place] # (Auto) (0.1-1.2) X10*3/uL Eos # (Auto) (0.0-0.4) X10*3/uL Baso # (Auto) (0.0-0.2) X10*3/uL Abs Immat Gran (auto) (0.00-0.03) X10*3/uL Absolute Neuts (auto) (2.0-8.3) x10*3/uL Absolute Nucleated RBC (0.0-0.012) X10*3/uL Nucleated RBC % (auto) (0.0-0.2) /100WBC Sodium 139 (135-145) mmol/L Potassium 3.9 (3.3-5.1) mmol/L Chloride 106 (96-108) mmol/L Carbon Dioxide 22 (22-29) mmol/L Anion Gap 15 (12-20) BUN 7 L (9-16) mg/dL Creatinine 0.81 (0.5-1.4) mg/dL Estim Creat Clear Calc 99.9 Estimated GFR > 60 Random Glucose 94 (60-115) mg/dL Calcium 8.9 (8.4-10.2) mg/dL Magnesium 1.8 (1.6-2.6) mg/dL Total Bilirubin < 0.2 (0.0-1.0) mg/dL AST 17 (5-31) U/L ALT 14 (0-31) U/L Alkaline Phosphatase 99 D (39-117) U/L Total Protein 6.8 (6.5-8.0) g/dL Albumin 4.4 (3.5-5.0) g/dL Urine Opiates Screen (Not Detect) Urine Fentanyl Screen (Not Detect) Ur Barbiturates Screen (Not Detect) Ur Phencyclidine Scrn (Not Detect) Ur Amphetamines Screen (Not Detect) U Benzodiazepines Scrn (Not Detect) Urine Cocaine Screen (Not Detect) U Marijuana (THC) Screen (Not Detect) COVID-19 (NICK) (Negative) COVID-19 Clin Com Critical Care Time Critical Care Time Critical Care Time: No Discharge Plan Discharge Clinical Impression: Acute anxiety, Paranoia, COVID Patient Disposition: Home, Self-Care Additional Instructions: Take your medications as prescribed. If you were prescribed antibiotics today, it is important that you take your medication to their entirety, do not skip any doses, do not finish them early. Today you tested positive for COVID-19. Take Ibuprofen or Tylenol as needed for fevers or body aches. Quarantine for 5 days and ensure you wear a mask. After 5 days you should wear a mask for 5 days after that. Practice social distancing and good hand hygiene. Drink plenty of fluids. Follow-up with your primary care provider this week. Return to the emergency department with new or worsening symptoms. Such as chest pain, shortness of breath, fevers, chills, nausea, vomiting, weakness, inability to eat, trouble breathing or speaking, suicidal ideation, homicidal ideation, visual, auditory or tactile hallucinations. In case of emergency call 911 You can purchase a pulse oximeter from your local pharmacy or grocery store, and monitor your oxygen saturation if it goes below 94% you should return to the emergency department for further evaluation. Prescriptions: No Action metformin 500 mg tablet 1 tab PO BID 0RF atorvastatin 10 mg tablet 1 tab PO DAILY 0RF verapamil 240 mg tablet extended release 240 mg PO BEDTIME 0RF montelukast 10 mg tablet 1 tab PO BEDTIME 0RF Flovent HFA 110 mcg/actuation HFA aerosol inhaler 2 puff inhalation BID 0RF albuterol sulfate [Ventolin HFA] 90 mcg/actuation HFA aerosol inhaler 2 puff inhalation Q4H PRN (Reason: Shortness Of Breath) 0RF trazodone 150 mg tablet 150 mg PO BEDTIME PRN (Reason: insomnia) 0RF benztropine 1 mg tablet 1 mg PO DAILY 0RF naproxen 500 mg tablet 1 tab PO BID 0RF docusate sodium [Colace] 100 mg capsule 100 mg PO BID Qty: 60 0RF fluoxetine 20 mg Capsule 40 mg PO DAILY 30 Days Qty: 60 0RF prazosin 1 mg Capsule 4 mg PO BEDTIME 30 Days Qty: 120 0RF Protocol: Hold for SBP< HOLD for SBP < : 90 mirtazapine 7.5 mg Tablet 7.5 mg PO BEDTIME MRX1 30 Days Qty: 60 0RF lisinopril 5 mg tablet 1 tab PO DAILY 0RF ondansetron 4 mg tablet,disintegrating 4 mg PO Q6-8H PRN (Reason: nausea and vomiting) Qty: 14 0RF fluphenazine HCl 2.5 mg tablet 1 tab PO BEDTIME 0RF fluphenazine HCl 5 mg tablet 1 tab PO BEDTIME 0RF Referrals: [facility] [Provider Group] - 2 days Physician,Unknown J [Primary Care Provider] - 2 days
[2022-03-19 14:22] LABS: MANUAL DIFF FLAG NO
[2022-03-19 14:24] LABS: Basophils Percent Auto 0.3 % (0-2); Eosinophils Absolute Auto 0.3 X10*3/uL (0.0-0.4); Hematocrit 35.2 % (37.0-47.0); Hemoglobin 11.6 g/dl (12.0-16.0); Imm Gran Abs Auto 0.05 X10*3/uL (0.00-0.03); Imm Gran Pct Auto 0.7 % (0.0-0.4); Lymphocytes Absolute Auto 1.8 X10*3/uL (1.2-4.9); Lymphocytes Percent Auto 25.2 % (20-40); Mean Corpuscular Hemoglobin 29.1 pg (27.0-33.0); Mean Corpuscular Volume 88.4 fL (80.0-98.0); Mean Platelet Volume 9.7 fL (9.4-12.3); Monocytes Absolute Auto 0.6 X10*3/uL (0.1-1.2); Monocytes Percent Auto 8.3 % (2-11); Neutrophils Absolute Auto 4.5 x10*3/uL (2.0-8.3); Neutrophils Percent Auto 61.5 % (45-73); Platelet Count 301 X10*3/uL (160-400); Red Blood Count 3.98 X10*6/uL (4.20-5.50); Red Cell Distribution Width 13.3 % (11.0-16.0); White Blood Count 7.3 X10*3/uL (4.8-10.8)
[2022-03-19 14:39] LABS: Alanine Aminotransferase 14 U/L (0-31); Albumin Level 4.4 g/dL (3.5-5.0); Alkaline Phosphatase 99 U/L (39-117); Anion Gap 15 (12-20); Aspartate Amino Transferase 17 U/L (5-31); Bilirubin Total < 0.2 mg/dL (0.0-1.0); Blood Urea Nitrogen 7 mg/dL (9-16); Calcium 8.9 mg/dL (8.4-10.2); Carbon Dioxide 22 mmol/L (22-29); Chloride 106 mmol/L (96-108); Creatinine Clr Calc Pharmacy 99.9; Estimated Glomerular Filt Rate > 60; Glucose Random 94 mg/dL (60-115); Magnesium 1.8 mg/dL (1.6-2.6); Potassium 3.9 mmol/L (3.3-5.1); Sodium 139 mmol/L (135-145); Total Protein 6.8 g/dL (6.5-8.0)
--- NOTE | 2022-03-19 17:15 | PC.NURSE ---
conferenced with care care team coordinator scheduler in regards to the potential for escalating behaviors as a result of the clients inability to return home. offered client earphones to listen to music or podcasts but client declined. according to staff, provider did not agree to ambulance for transportation. client made allegations to ground crewman mission support that she would kill herself in order to leave .
--- NOTE | 2022-03-19 18:16 | MHC.CARE ---
CARE team met with pt who arrived to the ED via ambulance endorsing SI and AVH, and produced a hand written note expressing urges to engage in self harm. Pt reported that she is no longer experiencing the hallucinations, which were the catalyst for her to experience self harm ideation, and isrequesting to return to her [facility]. Pt is well known to the CARE team and this display card writer and was able to review her coping skills that she can access when she is not in the hospital. At this time pt does not require any further evaluation or intervention for behavioral health symptoms. ED provider was updated re: recommendation for discharge home to follow up with outpatient supports. Pt tested positive for covid-19 and cannot be transported via lyft or cab. This display card writer contacted the pt's fci and spoke with the staff person on shift, who stated that he is the only person on the shift for the remainder of the day/night and is not able to pick her up from the hospital. This display card writer left a message for the fci director re: dilemma of the pt returning to the fci.
--- NOTE | 2022-03-19 21:33 | MHC.CARE ---
CARE team contacted the correction again to get an additional phone number for a CH[employer] contractor buyer residential care facility manager. This senior underwriter spoke with Carol who reported that there is only one staff in the residential program this evening and no extra available staff that would be able to pick her up from the hospital [facility]. Carol also shared the the pt had contacted the correction and informed the staff that she wasn't going to isolate from others when she returns to the program (this is not the deterrent of her returning to the program this evening). This senior underwriter spoke with CARE sub assembly team worker re: the situation. Plan will be for coordinating with the gis programmer in the morning for her to be transported back to the program.
--- NOTE | 2022-03-20 07:13 | PC.NURSE ---
Patient slept through the night, no distress observed/reported, patient is covid + cleared by care team to discharge, no ride available to go back to senior living, per care team senior living will arrange a ride in the morning, VSS, behavior non concerning at this time, Mar updated, will continue to monitor.
--- NOTE | 2022-03-20 07:41 | PC.NURSE ---
patient appears to remain asleep at present respirations are even and unlabored patient appears in no distress
[2022-03-20 08:04] VITALS: BP 149/90; PULSE 84; RESP 14; TEMP 36.6; O2SAT 96
[2022-03-20] MEDS: Docusate Sodium 100 MG CAPSULE PO (08:21)
[2022-03-20] MEDS: NaPROXEN 500 MG TABLET PO (08:21)
[2022-03-20] MEDS: Benztropine Mesylate 1 MG TABLET PO (08:21)
[2022-03-20] MEDS: FLUoxetine HCl 20 MG CAPSULE 40 MG PO (08:21)
[2022-03-20] MEDS: Atorvastatin Calcium 10 MG TABLET PO (08:21)
[2022-03-20] MEDS: metFORMIN HCl 500 MG TABLET PO (08:21)
[2022-03-20] MEDS: lisinopriL 5 MG TABLET PO (08:22)
[2022-03-20] MEDS: chlorproMAZINE HCl 25 MG TABLET 75 MG PO (11:18)
== END 2022-03-20 12:16 | disposition home or self-care (01) ==
PROVIDERS: Physician Assistant; Emergency Provider Student in an Organized Health Care Education/Training Program
DX: U07.1 COVID-19 (principal); F41.9 Anxiety disorder, unspecified; F60.0 Paranoid personality disorder; R44.0 Auditory hallucinations; F60.3 Borderline personality disorder; F31.9 Bipolar disorder, unspecified; Z91.51 Personal history of suicidal behavior; Z79.899 Other long term (current) drug therapy; F17.200 Nicotine dependence, unspecified, uncomplicated
CPT/HCPCS: 36415; 80053; 80307; 83735; 85025; 87635; 99284

== ENCOUNTER 2022-03-21 19:29 | Emergency (ER) | payer MEDICARE, MEDICAID, SELFPAY ==
--- NOTE | ~2022-03-21 | XR_ITS ---
EXAMINATION: XR CHEST CLINICAL INFORMATION: Patient with Covid 19. COMPARISON: None TECHNIQUE: Frontal view of the chest was obtained. FINDINGS: No significant abnormality is noted involving the heart, lungs, mediastinum, bony thorax or soft tissues. XR/XR chest 1V IMPRESSION: Unremarkable examination.
[2022-03-21 19:39] VITALS: BP 162/90; PULSE 120; O2SAT 100; BMI 37.5
[2022-03-21 19:45] VITALS: BP 133/75; PULSE 84; RESP 18; TEMP 37; O2SAT 96
--- NOTE | 2022-03-21 19:52 | ED_ITS ---
HPI - Chest Pain General Chief Complaint: Chest Pain Stated Complaint: cp Time Seen by Provider: 03/21/22 19:52 Related Data Home Medications Medication Instructions Recorded Confirmed atorvastatin 10 mg tablet 1 tab PO DAILY 05/29/21 03/21/22 fluticasone propionate 110 2 puff INHALATION BID 05/29/21 03/21/22 mcg/actuation HFA aerosol inhaler (Flovent HFA) metformin 500 mg tablet 1 tab PO BID 05/29/21 03/21/22 montelukast 10 mg tablet 1 tab PO BEDTIME 05/29/21 03/21/22 verapamil 240 mg tablet,extended 240 mg PO BEDTIME 05/29/21 03/21/22 release albuterol sulfate 90 mcg/actuation 2 puff INHALATION Q4H PRN 06/15/21 03/21/22 aerosol inhaler (Ventolin HFA) trazodone 150 mg tablet 150 mg PO BEDTIME PRN 11/05/21 03/21/22 lisinopril 5 mg tablet 1 tab PO DAILY 11/14/21 03/21/22 benztropine 1 mg tablet 1 mg PO DAILY 12/26/21 03/21/22 naproxen 500 mg tablet 1 tab PO BID 01/23/22 03/21/22 fluphenazine HCl 2.5 mg tablet 1 tab PO BEDTIME 03/19/22 03/21/22 fluphenazine HCl 5 mg tablet 1 tab PO BEDTIME 03/19/22 03/21/22 Previous Rx's Medication Instructions Recorded fluoxetine 20 mg capsule 40 mg PO DAILY 30 Days #60 cap 09/29/21 mirtazapine 7.5 mg tablet 7.5 mg PO BEDTIME MRX1 30 Days #60 10/18/21 tab prazosin 1 mg capsule 4 mg PO BEDTIME 30 Days #120 cap 10/18/21 ondansetron 4 mg disintegrating 4 mg PO Q6-8H PRN #14 tab 02/04/22 tablet docusate sodium 100 mg capsule 100 mg PO BID #60 cap 02/07/22 (Colace) benzonatate 200 mg capsule 200 mg PO TID PRN #20 cap 03/21/22 Allergies Allergy/AdvReac Type Severity Reaction Status Date / Time Fish Containing Products Allergy Severe ANAPHYLAXIS Verified 02/23/22 16:21 codeine [Codeine] Allergy Unknown RASH Verified 02/23/22 16:21 Penicillins Allergy Unknown RASH Verified 02/23/22 16:21 prednisone [Prednisone] Allergy Unknown RASH Verified 02/23/22 16:21 Sulfa (Sulfonamide Allergy Unknown RASH Verified 02/23/22 16:21 Antibiotics) [Sulfa (Sulfonamides)] azithromycin [AZITHROMYCIN] AdvReac Severe RASH Verified 02/23/22 16:21 nicotine AdvReac Unknown HEART Verified 02/23/22 16:21 PALPITATION TO NICOTINE GUM Seafood Allergy Severe ANAPHYLAXIS Uncoded 11/05/21 21:13 From Geodon Allergy Unknown DYSURIA, Uncoded 11/05/21 21:13 RASH PMFSH Past Medical History Medical History Acetaminophen overdose Borderline personality disorder Bronchitis Depression Diabetes type 2, controlled GERD (gastroesophageal reflux disease) History of attempted suicide History of non-suicidal self-harm Hyperlipidemia Hypomagnesemia MDD (major depressive disorder), recurrent episode, severe Mood disorder Overdose PTSD (post-traumatic stress disorder) Suicide attempt Suicide attempt by acetaminophen overdose Social History Social History 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: None 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 Other:: Patient lives in [facility]. 4 in total live in [facility]. Housing: Other Housing Other:: [facility]pc Do you presently have visiting nurse or other home services: No Unable to assess alcohol history related to: Unknown Alcohol intake: never Patient Tobacco Use Status: Current everyday Tobacco user Tobacco use type: Cigarette Cigarette Packs Per Day: 1 Cigarettes Per Day: 20 Years Smoked: 20 e-Cigarette/Vaping Use: Never Used Use of substances other than those prescribed or required for medical reasons: No Substance Use Type: Caffiene Advance Directives: No Advance Directives Information Provided: No service: No Current occupational status: disabled Sexual orientation: Don't Know Physical Exam Vital Signs: Vital Signs: Last Vital Signs Temp 98.6 F 03/21/22 19:45 Pulse 84 03/21/22 19:45 Resp 18 03/21/22 19:45 BP 133/75 03/21/22 19:45 Pulse Ox 96 03/21/22 19:45 BMI result Body Mass Index 37.5 MDM - Chest Pain MDM Narrative Medical decision making narrative: Patient has atypical chest pain from cough noncardiac likely pleuritic from COVID chest x-ray negative repeat COVID test is negative. Now patient complaining of hearing voices would like to talk to therapist. Denies any suicidal ideation Patient seen by therapist advised to discharge the patient home Lab Data Attestation: I reviewed the patient's lab results. Labs: Lab Results 03/21/22 03/21/22 Range/Units 20:41 20:41 Urine Color STRAW Urine Appearance CLEAR Urine pH 6.0 (5.0-8.0) Ur Specific [place] <= 1.005 (1.005-1.025) Urine Protein NEG (NEG-TRACE) MG/DL Urine Glucose (UA) NEG (NEG) MG/DL Urine Ketones NEG (NEG) MG/DL Urine Blood NEG (NEG) Urine Nitrite NEG (NEG) Ur Leukocyte Esterase NEG (NEG) COVID-19 (NICK) Negative (Negative) COVID-19 Clin Com See Note Discharge Plan Discharge Clinical Impression: Atypical chest pain, COVID Patient Disposition: Home, Self-Care Instructions: Chest Wall Pain (ED), COVID-19 (Coronavirus Disease 2019) (ED) Additional Instructions: Tylenol for pain/fever Cough drops as prescribed Your COVID test today is negative is still you should keep precautions and wear mask until completely get better Prescriptions: New benzonatate 200 mg capsule 200 mg PO TID PRN (Reason: cough) Qty: 20 0RF No Action metformin 500 mg tablet 1 tab PO BID 0RF atorvastatin 10 mg tablet 1 tab PO DAILY 0RF verapamil 240 mg tablet extended release 240 mg PO BEDTIME 0RF montelukast 10 mg tablet 1 tab PO BEDTIME 0RF fluticasone propionate [Flovent HFA] 110 mcg/actuation HFA aerosol inhaler 2 puff inhalation BID 0RF albuterol sulfate [Ventolin HFA] 90 mcg/actuation HFA aerosol inhaler 2 puff inhalation Q4H PRN (Reason: Shortness Of Breath) 0RF trazodone 150 mg tablet 150 mg PO BEDTIME PRN (Reason: insomnia) 0RF benztropine 1 mg tablet 1 mg PO DAILY 0RF naproxen 500 mg tablet 1 tab PO BID 0RF docusate sodium [Colace] 100 mg capsule 100 mg PO BID Qty: 60 0RF fluoxetine 20 mg Capsule 40 mg PO DAILY 30 Days Qty: 60 0RF prazosin 1 mg Capsule 4 mg PO BEDTIME 30 Days Qty: 120 0RF Protocol: Hold for SBP< HOLD for SBP < : 90 mirtazapine 7.5 mg Tablet 7.5 mg PO BEDTIME MRX1 30 Days Qty: 60 0RF lisinopril 5 mg tablet 1 tab PO DAILY 0RF ondansetron 4 mg tablet,disintegrating 4 mg PO Q6-8H PRN (Reason: nausea and vomiting) Qty: 14 0RF fluphenazine HCl 2.5 mg tablet 1 tab PO BEDTIME 0RF fluphenazine HCl 5 mg tablet 1 tab PO BEDTIME 0RF Interventions: ED Discharge Assessment Last Done: 03/21/22 22:02 Discharge Date/Time: 03/21/22 22:19
--- NOTE | 2022-03-21 19:57 | ECG_ITS ---
Test Reason : CHEST PAIN Blood Pressure : / mmHG Vent. Rate : 080 BPM Atrial Rate : 080 BPM P-R Int : 180 ms QRS Dur : 086 ms QT Int : 384 ms P-R-T Axes : 058 044 055 degrees QTc Int : 442 ms Normal sinus rhythm Normal ECG When compared with ECG of 09-FEB-2022 16:19, No significant change was found Referred By: Parish Ruano Electronically Signed By:MAURI COLE
[2022-03-21 20:51] LABS: Appearance Urine CLEAR; Color Urine STRAW; Glucose Urine UA NEG (NEG); Leukocyte Esterase Urine NEG (NEG); Nitrite Urine NEG (NEG); Specific Gravity - Urine <= 1.005 (1.005-1.025); Urine Blood NEG (NEG); Urine Ketones NEG (NEG); Urine Protein NEG (NEG-TRACE)
[2022-03-21 21:04] LABS: COVID-19 Test Negative (Negative)
--- NOTE | 2022-03-21 21:16 | PC.NURSE ---
pt hearing voices, moved to the pod.
--- NOTE | 2022-03-21 22:15 | MHC.CARE ---
CARE Team met with pt who wants to return to her half-way. She denies SI/HI/AVH. CARE Team will get her a Lyft back to her half-way.
== END 2022-03-21 22:19 | disposition home or self-care (01) ==
PROVIDERS: Emergency Provider Internal Medicine
DX: U07.1 COVID-19 (principal); R07.89 Other chest pain; E11.9 Type 2 diabetes mellitus without complications; R44.0 Auditory hallucinations; F60.3 Borderline personality disorder; F32.A Depression, unspecified; Z91.51 Personal history of suicidal behavior
CPT/HCPCS: 71045; 81003; 87635; 93005; 99283; 99284

== ENCOUNTER 2022-03-27 20:00 | Emergency (ER) | payer MEDICARE, MEDICAID, SELFPAY ==
--- NOTE | 2022-03-27 20:06 | ED.PSYCH ---
HPI - Psych General Chief Complaint: Psychiatric Symptoms Stated Complaint: STOMACH LAC Time Seen by Provider: 03/27/22 20:03 Source: patient Mode of arrival: ambulatory Limitations: no limitations History of Present Illness HPI Narrative: ?46-year-old female past medical history borderline personality disorder, depression, anxiety, bipolar 2 with melancholic features, PTSD, DM, GERD presents to the ED with complaints anxiety, self inflicted wounds x1 day.? Patient tells me that today she is feeling anxious and she is not sure why. Tells me she found a piece of broken mug on her floor and cut her self with it on her abdomen, legs and forearms. Up to date on tetanus. ? Patient reports that she is hearing and seeing things telling her to harm herself.? Denies tactile hallucinations.? Denies drugs, alcohol and tobacco.? Denies suicidal and homicidal ideation at this time and homicidal ideation. No medical complaints Related Data Home Medications Medication Instructions Recorded Confirmed atorvastatin 10 mg tablet 1 tab PO DAILY 05/29/21 03/27/22 fluticasone propionate 110 2 puff inhalation BID 05/29/21 03/27/22 mcg/actuation HFA aerosol inhaler (Flovent HFA) metformin 500 mg tablet 1 tab PO BID 05/29/21 03/27/22 montelukast 10 mg tablet 1 tab PO BEDTIME 05/29/21 03/27/22 verapamil 240 mg tablet,extended 240 mg PO BEDTIME 05/29/21 03/27/22 release albuterol sulfate 90 mcg/actuation 2 puff inhalation Q4H PRN 06/15/21 03/27/22 aerosol inhaler (Ventolin HFA) Shortness Of Breath trazodone 150 mg tablet 150 mg PO BEDTIME PRN insomnia 11/05/21 03/27/22 lisinopril 5 mg tablet 1 tab PO DAILY 11/14/21 03/27/22 benztropine 1 mg tablet 1 mg PO DAILY 12/26/21 03/27/22 naproxen 500 mg tablet 1 tab PO BID 01/23/22 03/27/22 fluphenazine HCl 2.5 mg tablet 1 tab PO BEDTIME 03/19/22 03/27/22 fluphenazine HCl 5 mg tablet 1 tab PO BEDTIME 03/19/22 03/27/22 Previous Rx's Medication Instructions Recorded fluoxetine 20 mg capsule 40 mg PO DAILY 30 days #60 caps 09/29/21 mirtazapine 7.5 mg tablet 7.5 mg PO BEDTIME MRX1 30 days #60 10/18/21 tabs prazosin 1 mg capsule 4 mg PO BEDTIME 30 days #120 caps 10/18/21 ondansetron 4 mg disintegrating 4 mg PO Q6-8H PRN nausea and 02/04/22 tablet vomiting #14 tabs docusate sodium 100 mg capsule 100 mg PO BID Constipation #60 caps 02/07/22 (Colace) benzonatate 200 mg capsule 200 mg PO TID PRN cough #20 caps 03/21/22 Allergies Allergy/AdvReac Type Severity Reaction Status Date / Time Fish Containing Products Allergy Severe ANAPHYLAXIS Verified 03/27/22 20:11 codeine [Codeine] Allergy Unknown RASH Verified 03/27/22 20:11 Penicillins Allergy Unknown RASH Verified 03/27/22 20:11 prednisone [Prednisone] Allergy Unknown RASH Verified 03/27/22 20:11 Sulfa (Sulfonamide Allergy Unknown RASH Verified 03/27/22 20:11 Antibiotics) [Sulfa (Sulfonamides)] azithromycin [AZITHROMYCIN] AdvReac Severe RASH Verified 03/27/22 20:11 nicotine AdvReac Unknown HEART Verified 03/27/22 20:11 PALPITATION TO NICOTINE GUM Seafood Allergy Severe ANAPHYLAXIS Uncoded 11/05/21 21:13 From Geodon Allergy Unknown DYSURIA, Uncoded 11/05/21 21:13 RASH Review of Systems Review of Systems: Constitutional : No Weight loss, No Fever, No Chills, No Fatigue, No Malaise ENT/Mouth : No sore throat, No Rhinorrhea Eyes: No Eye Pain, No Swelling, No Redness Cardiovascular : No Chest Pain, No SOB, No Dyspnea on Exertion, No Orthopnea, No Edema, No Palpitations Respiratory : No Cough, No Sputum, No Wheezing Gastrointestinal : No Nausea, No Vomiting, No Diarrhea, No Constipation, No abdominal Pain, No Hematochezia, No Melena Genitourinary : No Dysuria, No Urinary Frequency, No Hematuria, Musculoskeletal : No joint pain, No Myalgias, No Joint Swelling Skin : No Skin Lesions, No rash Neuro : No Weakness, No Numbness, No Dizziness, No Headache Psych : + Anxiety/Panic, + Depression, No suicidal ideation, No homicidal ideation? Yes all other systems are reviewed and are negative [facility] Past Medical History Attestation statement: The following information was validated with the patient. Source: old records reviewed and nursing notes reviewed Medical History Acetaminophen overdose Borderline personality disorder Bronchitis Depression Diabetes type 2, controlled GERD (gastroesophageal reflux disease) History of attempted suicide History of non-suicidal self-harm Hyperlipidemia Hypomagnesemia MDD (major depressive disorder), recurrent episode, severe Mood disorder Overdose PTSD (post-traumatic stress disorder) Suicide attempt Suicide attempt by acetaminophen overdose Social History Social History 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: None 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 Other:: [facility] 4 in total live [facility]iary. Housing: Other Housing Other:: penitentiary Do you presently have visiting nurse or other home services: No Unable to assess alcohol history related to: Unknown Alcohol intake: never Patient Tobacco Use Status: Current everyday Tobacco user Tobacco use type: Cigarette Cigarette Packs Per Day: 1 Cigarettes Per Day: 20 Years Smoked: 20 e-Cigarette/Vaping Use: Never Used Substance Use Type: Caffiene Advance Directives: No Advance Directives Information Provided: No Patient : No service: No Current occupational status: disabled Sexual orientation: Don't Know Physical Exam Vital Signs: Vital Signs: Last Vital Signs Temp 97.9 F 03/27/22 20:11 Pulse 69 03/27/22 22:38 Resp 18 03/27/22 22:38 BP 110/71 03/27/22 22:38 Pulse Ox 97 03/27/22 22:38 O2 Del Method 03/27/22 22:38 BMI result Body Mass Index 37.5 Vital signs stable Appearance: Alert.? Oriented X3.? No acute distress.? Head: Normocephalic, atraumatic, no step-offs or deformities Eyes: Pupils equal, round and reactive to light.? ENT: Pharynx normal.? Neck: Normal inspection.? Neck supple.? CVS: Normal heart rate and rhythm.? Pulses normal.? Respiratory: No respiratory distress.? Breath sounds normal.? Abdomen: Soft and nontender.? Skin: Skin warm and dry.? Normal skin color.? Normal skin turgor.? Extremities: No lower extremity edema.? No calf ttp. 5/5 strength to bilateral upper and lower extremities + new superficial lacerations to bilateral forearms, bilateral shins, abdomen. Back: No midline tenderness, no C-spine tenderness, full range of motion, no CVA tenderness bilaterally Neuro: Oriented X 3.? No motor deficit.? No sensory deficit. CN 2-12 intact Course Reevaluation(s) Reevaluation #1: Salicylates, ethanol negative, TORRES negative. Patient telling me she is feeling much better and would like to go home. She denies SI and HI, she tells me she does not want a speak to anyone from the behavioral health team or care team. She tells me she is feeling better, she feels like today she just had a panic attack. She tells me she will work on coping mechanisms. At this time I feel comfortable with discharge home. Time: 22:51 Reevaluation #2: Acetaminophen level negative. Comfortable discharge. Advised patient to follow-up with the behavioral health team. Time: 01:11 MDM - Psych MDM Narrative Medical decision making narrative: 2011 46-year-old female presents with anxiety , depression and self inflicted woundsw.? Brought in via ambulance. Physical exam significant for new superficial self inflicted wounds to arms, shins, abdomen. Regular rate and rhythm.? Lungs clear.? Neuro exam nonfocal.? Abdomen soft nontender nondistended. Plan at this time is medical clearance and evaluation by the behavioral health team. Medical Records Attestation: I reviewed the patient's medical records. Lab Data Attestation: I reviewed the patient's lab results. Labs: Lab Results 03/27/22 03/27/22 03/27/22 Range/Units 21:06 21:06 21:06 Salicylates < 5.0 L (15-30) mg/dL Urine Opiates Screen (Not Detect) Urine Fentanyl Screen (Not Detect) Acetaminophen < 1 (<30) mcg/mL Ur Barbiturates Screen (Not Detect) Ur Phencyclidine Scrn (Not Detect) Ur Amphetamines Screen U Benzodiazepines Scrn (Not Detect) Urine Cocaine Screen (Not Detect) U Marijuana (THC) Screen (Not Detect) Ethyl Alcohol < 10 mg/dL COVID-19 (NICK) Negative (Negative) COVID-19 Clin Com See Note 03/27/22 03/27/22 Range/Units 21:13 21:13 Salicylates (15-30) mg/dL Urine Opiates Screen Not Detected (Not Detect) Urine Fentanyl Screen Not Detected (Not Detect) Acetaminophen (<30) mcg/mL Ur Barbiturates Screen Not Detected (Not Detect) Ur Phencyclidine Scrn Not Detected (Not Detect) Ur Amphetamines Screen Cancelled Not Detected U Benzodiazepines Scrn Not Detected (Not Detect) Urine Cocaine Screen Not Detected (Not Detect) U Marijuana (THC) Screen Not Detected (Not Detect) Ethyl Alcohol mg/dL COVID-19 (NICK) (Negative) COVID-19 Clin Com Critical Care Time Critical Care Time Critical Care Time: No Discharge Plan Discharge Clinical Impression: Intentional self-harm by blunt object in residential institution as place of occurrence, Anxiety Patient Disposition: Home, Self-Care Instructions: Generalized Anxiety Disorder (ED), Anxiety (ED), Nonsuicidal Self-Injury (ED) Additional Instructions: Take your medications as prescribed. If you were prescribed antibiotics today, it is important that you take your medication to their entirety, do not skip any doses, do not finish them early. Follow-up with your primary care provider this week. Follow-up with the behavioral health team within the next day or 2. Return to the emergency department with new or worsening symptoms. Such as fevers, chills, chest pain, shortness of breath, nausea, vomiting, dizziness, headache, vision changes, lethargy In case of emergency call 911 Prescriptions: No Action metformin 500 mg tablet 1 tab PO BID atorvastatin 10 mg tablet 1 tab PO DAILY verapamil 240 mg tablet extended release 240 mg PO BEDTIME montelukast 10 mg tablet 1 tab PO BEDTIME fluticasone propionate [Flovent HFA] 110 mcg/actuation HFA aerosol inhaler 2 puff inhalation BID albuterol sulfate [Ventolin HFA] 90 mcg/actuation HFA aerosol inhaler 2 puff inhalation Q4H PRN (Reason: Shortness Of Breath) trazodone 150 mg tablet 150 mg PO BEDTIME PRN (Reason: insomnia) benztropine 1 mg tablet 1 mg PO DAILY naproxen 500 mg tablet 1 tab PO BID docusate sodium [Colace] 100 mg capsule 100 mg PO BID Qty: 60 0RF benzonatate 200 mg capsule 200 mg PO TID PRN (Reason: cough) Qty: 20 0RF fluoxetine 20 mg Capsule 40 mg PO DAILY 30 Days Qty: 60 0RF prazosin 1 mg Capsule 4 mg PO BEDTIME 30 Days Qty: 120 0RF Protocol: Hold for SBP< HOLD for SBP < : 90 mirtazapine 7.5 mg Tablet 7.5 mg PO BEDTIME MRX1 30 Days Qty: 60 0RF lisinopril 5 mg tablet 1 tab PO DAILY ondansetron 4 mg tablet,disintegrating 4 mg PO Q6-8H PRN (Reason: nausea and vomiting) Qty: 14 0RF fluphenazine HCl 2.5 mg tablet 1 tab PO BEDTIME fluphenazine HCl 5 mg tablet 1 tab PO BEDTIME Referrals: [facility] [Provider Group] - 2 days Physician,Unknown J [Primary Care Provider] - 2 days
[2022-03-27 20:11] VITALS: BP 122/90; BP 148/93; PULSE 105; PULSE 96; RESP 18; TEMP 36.6; O2SAT 96; O2SAT 99; BMI 37.5
[2022-03-27 21:29] LABS: Ethanol < 10 mg/dL
[2022-03-27 21:31] LABS: Salicylate < 5.0 mg/dL (15-30)
[2022-03-27 21:37] LABS: COVID-19 Test Negative (Negative)
[2022-03-27 21:48] LABS: Amphetamine Screen Urine Not Detected (Not Detect); Barbiturates, Urine Not Detected (Not Detect); Benzodiazepines Screen Urine Not Detected (Not Detect); Cannabinoid Screen Urine Not Detected (Not Detect); Cocaine Screen Urine Not Detected (Not Detect); Fentanyl, urine Not Detected (Not Detect); Opiate Screen Urine Not Detected (Not Detect); Phencyclidine Screen Urine Not Detected (Not Detect)
[2022-03-27 22:38] VITALS: BP 110/71; PULSE 69; RESP 18; O2SAT 97
[2022-03-28 01:03] LABS: Acetaminophen LAB < 1 mcg/mL (<30)
[2022-03-28 06:26] VITALS: BP 108/89; PULSE 75; RESP 16; TEMP 36.6; O2SAT 97
--- NOTE | 2022-03-28 06:55 | PC.NURSE ---
Patient slept through the night, no distress observed/reported, med rec completed/pending provider's approval, behavior non concerning, patient cleared by the provider for discharge, care team will see patient before discharge and arrange ride back to [facility], will continue to monitor.
[2022-03-28 07:48] VITALS: BP 134/83; PULSE 82; RESP 13; TEMP 36.2; O2SAT 94
--- NOTE | 2022-03-28 09:39 | MHC.CARE ---
Pt is a 46 y/o white Divehi speaking female, who is previously known to the CARE Team through multiple prior assessments, Risk screenings, ED visits and inpatient stays.? Yesterday pt was transported to this facility from home via ambulance for command auditory hallucinations telling her to self-harm, anxiety, and self-harming behavior.? Patient stated that she used a broken mug to cut her abdomen, legs and forearms.? At the time of arrival she denies SI and HI.? Pt has been medically cleared and is being assessed by the CARE Team to determine risk. Pt has an extensive hx of inpt hospitalizations, and is known to engage in unsafe behavior when decompensated. Past documented hx of major depressive d/o, PTSD, and Borderline personality d/o. Pt has a hx of self-harm and suicide attempts. Pt is alert and oriented x4 and is assessed by CARE Team in her room in the behavioral health pod of the ED.? Pt is neat in appearance and appears older than her stated age.? She stated that yesterday she was hearing voices and they were commanding her to self-harm.? She stated that her voices were not as intense and consistent as they have been in the past.? Today, she advises CARE Team that, her voices are no longer present, she denies HI, SI, , and self-harm urges.? She states her sleep and appetite have been ?ok?.? She reports her mood as good and she is looking forward to having her hair dyed today.? ? Pt?s mood is pleasant; she demonstrates full range of affect.? Insight, judgement, memory, and concentration are fair and appear to be at her baseline.? Pt appears to be at her baseline at this time. The plan is for [facility].? CARE Team will secure transportation.? A follow up call will be conducted with pt this afternoon.? This disposition was discussed with and agreed upon by ED Provider Candie and pt?s nurse Jd Still.
[2022-03-28] MEDS: metFORMIN HCl 500 MG TABLET PO (09:47)
[2022-03-28] MEDS: Atorvastatin Calcium 10 MG TABLET PO (09:47)
[2022-03-28] MEDS: lisinopriL 5 MG TABLET PO (09:47)
[2022-03-28] MEDS: FLUoxetine HCl 20 MG CAPSULE 40 MG PO (09:47)
== END 2022-03-28 09:55 | disposition home or self-care (01) ==
PROVIDERS: Physician Assistant; Emergency Provider Internal Medicine
DX: S31.119A Laceration without foreign body of abdominal wall, unspecified quadrant without penetration into peritoneal cavity, initial encounter (principal); S51.812A Laceration without foreign body of left forearm, initial encounter; S51.811A Laceration without foreign body of right forearm, initial encounter; S81.812A Laceration without foreign body, left lower leg, initial encounter; S81.811A Laceration without foreign body, right lower leg, initial encounter; F41.9 Anxiety disorder, unspecified; F33.9 Major depressive disorder, recurrent, unspecified; F43.10 Post-traumatic stress disorder, unspecified; E11.9 Type 2 diabetes mellitus without complications; Z79.84 Long term (current) use of oral hypoglycemic drugs; Z79.899 Other long term (current) drug therapy; Z91.51 Personal history of suicidal behavior; Z20.822 Contact with and (suspected) exposure to COVID-19; X78.0XXA Intentional self-harm by sharp glass, initial encounter; Y93.9 Activity, unspecified; Y92.009 Unspecified place in unspecified non-institutional (private) residence as the place of occurrence of the external cause; Y99.9 Unspecified external cause status
CPT/HCPCS: 80143; 80179; 80307; 82077; 87635; 99284

== ENCOUNTER 2022-03-29 13:06 | Emergency (ER) | payer MEDICARE, MEDICAID, SELFPAY ==
--- NOTE | 2022-03-29 13:11 | ED_ITS ---
HPI - Psych General Chief Complaint: Psychiatric Symptoms Stated Complaint: ARM LACS,SI,CRISIS Time Seen by Provider: 03/29/22 13:11 Source: patient and old records reviewed Mode of arrival: EMS Limitations: no limitations History of Present Illness MD complaint: suicidal ideation and feels depressed Onset (ago): week(s) Duration: intermittent History of same: Yes Relieving factors: none Exacerbating factors: other Context: other (flashbacks) Associated psychiatric symptoms: depression and suicidal ideation Associated symptoms: denies other symptoms Treatments prior to arrival: none If self harm: admits thoughts of self harm and self-inflicted trauma (superficial linear lacerations to stomach, arms, thighs) Related Data Home Medications Medication Instructions Recorded Confirmed atorvastatin 10 mg tablet 1 tab PO DAILY 05/29/21 03/27/22 fluticasone propionate 110 2 puff inhalation BID 05/29/21 03/27/22 mcg/actuation HFA aerosol inhaler (Flovent HFA) metformin 500 mg tablet 1 tab PO BID 05/29/21 03/27/22 montelukast 10 mg tablet 1 tab PO BEDTIME 05/29/21 03/27/22 verapamil 240 mg tablet,extended 240 mg PO BEDTIME 05/29/21 03/27/22 release albuterol sulfate 90 mcg/actuation 2 puff inhalation Q4H PRN 06/15/21 03/27/22 aerosol inhaler (Ventolin HFA) Shortness Of Breath trazodone 150 mg tablet 150 mg PO BEDTIME PRN insomnia 11/05/21 03/27/22 lisinopril 5 mg tablet 1 tab PO DAILY 11/14/21 03/27/22 benztropine 1 mg tablet 1 mg PO DAILY 12/26/21 03/27/22 naproxen 500 mg tablet 1 tab PO BID 01/23/22 03/27/22 fluphenazine HCl 2.5 mg tablet 1 tab PO BEDTIME 03/19/22 03/27/22 fluphenazine HCl 5 mg tablet 1 tab PO BEDTIME 03/19/22 03/27/22 Previous Rx's Medication Instructions Recorded fluoxetine 20 mg capsule 40 mg PO DAILY 30 days #60 caps 09/29/21 mirtazapine 7.5 mg tablet 7.5 mg PO BEDTIME MRX1 30 days #60 10/18/21 tabs prazosin 1 mg capsule 4 mg PO BEDTIME 30 days #120 caps 10/18/21 ondansetron 4 mg disintegrating 4 mg PO Q6-8H PRN nausea and 02/04/22 tablet vomiting #14 tabs docusate sodium 100 mg capsule 100 mg PO BID Constipation #60 caps 02/07/22 (Colace) benzonatate 200 mg capsule 200 mg PO TID PRN cough #20 caps 03/21/22 Allergies Allergy/AdvReac Type Severity Reaction Status Date / Time Fish Containing Products Allergy Severe ANAPHYLAXIS Verified 03/27/22 20:11 codeine [Codeine] Allergy Unknown RASH Verified 03/27/22 20:11 Penicillins Allergy Unknown RASH Verified 03/27/22 20:11 prednisone [Prednisone] Allergy Unknown RASH Verified 03/27/22 20:11 Sulfa (Sulfonamide Allergy Unknown RASH Verified 03/27/22 20:11 Antibiotics) [Sulfa (Sulfonamides)] azithromycin [AZITHROMYCIN] AdvReac Severe RASH Verified 03/27/22 20:11 nicotine AdvReac Unknown HEART Verified 03/27/22 20:11 PALPITATION TO NICOTINE GUM Seafood Allergy Severe ANAPHYLAXIS Uncoded 11/05/21 21:13 From Geodon Allergy Unknown DYSURIA, Uncoded 11/05/21 21:13 RASH Review of Systems Review of Systems: Constitutional : No Fever, No Chills ENT/Mouth : No Ear Pain, No Nasal Congestion, No sore throat Eyes: No Eye Pain, No Swelling, No Redness Cardiovascular : No Chest Pain, No SOB Respiratory : No Cough, No Sputum, No Dyspnea Gastrointestinal : No Nausea, No Vomiting, No Diarrhea, No Hematochezia, No Melena Genitourinary : No Dysuria, No Urinary Frequency, No Hematuria Musculoskeletal : No Myalgias Skin : No Skin Lesions, No rash, pos abarsions Neuro : No Weakness, No Numbness, No Paresthesias, No Dizziness, No Headache Psych : positive Anxiety, positive Depression, positive SI no HI Heme/Lymph: No Lymphadenopathy Endocrine : No Polyuria, No Polydipsia All other systems reviewed and are negative [facility] Past Medical History Attestation statement: The following information was validated with the patient. Medical History Acetaminophen overdose Borderline personality disorder Bronchitis Depression Diabetes type 2, controlled GERD (gastroesophageal reflux disease) History of attempted suicide History of non-suicidal self-harm Hyperlipidemia Hypomagnesemia MDD (major depressive disorder), recurrent episode, severe Mood disorder Overdose PTSD (post-traumatic stress disorder) Suicide attempt Suicide attempt by acetaminophen overdose Social History Social History 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: None 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 Other:: Patient lives in nursing home. 4 in total live in nursing home. Housing: Other Housing Other:: nursing home Do you presently have visiting nurse or other home services: No Unable to assess alcohol history related to: Unknown Alcohol intake: never Patient Tobacco Use Status: Current everyday Tobacco user Tobacco use type: Cigarette Cigarette Packs Per Day: 1 Cigarettes Per Day: 20 Years Smoked: 20 e-Cigarette/Vaping Use: Never Used Substance Use Type: Caffiene service: No Current occupational status: disabled Sexual orientation: Don't Know Physical Exam Vital Signs: Vital Signs: Last Vital Signs Resp 16 03/29/22 13:33 BMI result Body Mass Index 40.3 Appearance: Alert. Oriented X3. No acute distress. Eating lunch calm and cooperative, asking for thorazine which I declined it is not on her med list Eyes: Pupils equal, round and reactive to light. ENT: Pharynx normal. Neck: Normal inspection. Neck supple. CVS: Normal heart rate and rhythm. Pulses normal. Respiratory: No respiratory distress. Breath sounds normal. Abdomen: Soft and non-tender. linear abrasions on stomach wall Skin: Skin warm and dry. Normal skin color. Normal skin turgor. Extremities: No lower extremity edema. No calf ttp linear superficial abrasions on both thighs and forearms Neuro: Oriented X 3. No motor deficit. No sensory deficit. CN 2-12 intact Course Course Course Narrative: cleared by CARE team stable for DC MDM - Psych MDM Narrative Medical decision making narrative: 46 yto female hx of mood disorder and self harm here with c/o self harm and vague statements of SI - chronic SI and chronic self harm she is well establis hed in the community. There is a care plan in place with our crisis team. CARE team to see patient. Lab Data Labs: Lab Results 03/29/22 03/29/22 Range/Units 13:37 13:37 Urine Opiates Screen Not Detected (Not Detect) Urine Fentanyl Screen Not Detected (Not Detect) Ur Barbiturates Screen Not Detected (Not Detect) Ur Phencyclidine Scrn Not Detected (Not Detect) Ur Amphetamines Screen Not Detected (Not Detect) U Benzodiazepines Scrn Not Detected (Not Detect) Urine Cocaine Screen Not Detected (Not Detect) U Marijuana (THC) Screen Not Detected (Not Detect) COVID-19 (NICK) Negative (Negative) COVID-19 Clin Com See Note Discharge Plan Discharge Clinical Impression: Abrasion, Chronic post-traumatic stress disorder Patient Disposition: Home, Self-Care Instructions: Post Traumatic Stress Disorder (ED), Abrasion (ED) Additional Instructions: return to ED for any worsening symptoms or concerns Prescriptions: No Action metformin 500 mg tablet 1 tab PO BID atorvastatin 10 mg tablet 1 tab PO DAILY verapamil 240 mg tablet extended release 240 mg PO BEDTIME montelukast 10 mg tablet 1 tab PO BEDTIME fluticasone propionate [Flovent HFA] 110 mcg/actuation HFA aerosol inhaler 2 puff inhalation BID albuterol sulfate [Ventolin HFA] 90 mcg/actuation HFA aerosol inhaler 2 puff inhalation Q4H PRN (Reason: Shortness Of Breath) trazodone 150 mg tablet 150 mg PO BEDTIME PRN (Reason: insomnia) benztropine 1 mg tablet 1 mg PO DAILY naproxen 500 mg tablet 1 tab PO BID docusate sodium [Colace] 100 mg capsule 100 mg PO BID Qty: 60 0RF benzonatate 200 mg capsule 200 mg PO TID PRN (Reason: cough) Qty: 20 0RF fluoxetine 20 mg Capsule 40 mg PO DAILY 30 Days Qty: 60 0RF prazosin 1 mg Capsule 4 mg PO BEDTIME 30 Days Qty: 120 0RF Protocol: Hold for SBP< HOLD for SBP < : 90 mirtazapine 7.5 mg Tablet 7.5 mg PO BEDTIME MRX1 30 Days Qty: 60 0RF lisinopril 5 mg tablet 1 tab PO DAILY ondansetron 4 mg tablet,disintegrating 4 mg PO Q6-8H PRN (Reason: nausea and vomiting) Qty: 14 0RF fluphenazine HCl 2.5 mg tablet 1 tab PO BEDTIME fluphenazine HCl 5 mg tablet 1 tab PO BEDTIME
[2022-03-29 13:33] VITALS: BP 118/80; PULSE 96; RESP 16; O2SAT 97; BMI 40.3
[2022-03-29 14:03] LABS: COVID-19 Test Negative (Negative)
[2022-03-29 14:18] LABS: Amphetamine Screen Urine Not Detected (Not Detect); Barbiturates, Urine Not Detected (Not Detect); Benzodiazepines Screen Urine Not Detected (Not Detect); Cannabinoid Screen Urine Not Detected (Not Detect); Cocaine Screen Urine Not Detected (Not Detect); Fentanyl, urine Not Detected (Not Detect); Opiate Screen Urine Not Detected (Not Detect); Phencyclidine Screen Urine Not Detected (Not Detect)
--- NOTE | 2022-03-29 14:52 | MHC.CARE ---
Pt is a 46 y/o white Kiswahili speaking female, who is previously known to the CARE Team through multiple prior assessments, Risk screenings, ED visits and inpatient stays.? Today pt was transported to this facility from home via ambulance for after she requested to speak with a member from [facility]?s community response team.? This individual she requested to see was on another call and was unable to respond at the time.? Pt reports that she spoke to her staff stating that she wanted to talk to that individual as she was having thoughts of self-harming.? Pt was then transported to this facility as staff called for a transport.? Pt has been medically cleared and is being assessed by the CARE Team to determine risk. Pt has an extensive hx of inpt hospitalizations, and is known to engage in unsafe behavior when decompensated. Past documented hx of major depressive d/o, PTSD, and Borderline personality d/o. Pt has a hx of self-harm and suicide attempts. Pt is alert and oriented x4 and is assessed for risk by the CARE Team in her room in the behavioral health pod of the ED.? Pt is neat in appearance and appears older than her stated age.? She stated that today she was having thoughts of self-harm and wanted to speak with [facility] community response.? She stated that she ?Just wanted to talk? and believes that she does not need to be in the hospital as her self-harm urges were not strong.? She expressed that she does not believe that staff calling the ambulance was the correct course of action.? She states that she is hearing voices but they are not intense and are manageable.? Pt reports voices to varying degrees at her baseline. ?She denies HI, SI, , and self-harm urges, stating that the self-harm urges were not intense when she was experiencing them, at baseline, pt reports having those urges.? She states her sleep and appetite have been ?ok?.? She reports her mood as good and appears pleased with the outcome of her hair dying appointment.? ? Pt?s mood is pleasant; she demonstrates full range of affect.? Insight, judgement, memory, and concentration are fair and appear to be at her baseline.? Pt appears to be at her baseline at this time. The plan is for pt to be discharged to the senior care.? CARE Team will secure transportation.? This disposition was discussed with and agreed upon by CARE Damage Adjuster Sinita MILLER, ED Provider Dr. Hernandez and pt?s nurse Jd Still.
== END 2022-03-29 15:25 | disposition home or self-care (01) ==
PROVIDERS: Emergency Provider Emergency Medicine
DX: S50.812A Abrasion of left forearm, initial encounter (principal); S50.811A Abrasion of right forearm, initial encounter; S70.312A Abrasion, left thigh, initial encounter; S70.311A Abrasion, right thigh, initial encounter; S30.811A Abrasion of abdominal wall, initial encounter; F43.12 Post-traumatic stress disorder, chronic; E11.9 Type 2 diabetes mellitus without complications; Z79.84 Long term (current) use of oral hypoglycemic drugs; Z79.899 Other long term (current) drug therapy; Z20.822 Contact with and (suspected) exposure to COVID-19; Z91.51 Personal history of suicidal behavior; X78.9XXA Intentional self-harm by unspecified sharp object, initial encounter; Y93.9 Activity, unspecified; Y92.9 Unspecified place or not applicable; Y99.9 Unspecified external cause status
CPT/HCPCS: 80307; 87635; 99282; 99283; 99284

== ENCOUNTER 2022-03-31 21:12 | Emergency (ER) | payer MEDICARE, MEDICAID, SELFPAY ==
[2022-03-31 21:28] VITALS: BMI 38.6
[2022-03-31 21:41] VITALS: BP 107/65; PULSE 98; TEMP 37.1; O2SAT 99
--- NOTE | 2022-03-31 22:42 | ED.PSYCH ---
HPI - Psych General Chief Complaint: Psychiatric Symptoms Stated Complaint: si Time Seen by Provider: 03/31/22 21:48 Source: patient Mode of arrival: ambulatory Limitations: no limitations History of Present Illness HPI Narrative: 46-year-old female who was brought to emergency department by ambulance on a Section 12 for evaluation of depression and suicidal ideation. The patient is well-known to the emergency department and by the crisis service [facility]. She states that she was feeling suicidal and was cutting herself over the past 2 days. She states that she has a planned overdose on aspirin. She did call [facility] and she evaluated at home. After this evaluation she was placed on a Section 12 and sent to the emergency department. Patient states that she is under stress but cannot identify specific trigger that is causing her depression and suicidal ideation. She states that she has cut her right arm and right abdomen multiple times over the last 2 days. She has a history of self cutting behavior. MD complaint: suicidal ideation and feels depressed Onset (ago): day(s) (3) Duration: constant History of same: Yes Relieving factors: none Exacerbating factors: none Context: significant life stressor Associated psychiatric symptoms: depression and suicidal ideation Associated symptoms: denies other symptoms Treatments prior to arrival: placed on mental health hold and other (Evaluated by [facility] as an outpatient) If self harm: admits thoughts of self harm, has plan and self-inflicted trauma (Self cutting behavior, patient cut her right arm and abdomen multiple times) Details of plan: Patient plans on overdosing on aspirin Related Data Home Medications Medication Instructions Recorded Confirmed atorvastatin 10 mg tablet 1 tab PO DAILY 05/29/21 03/31/22 fluticasone propionate 110 2 puff inhalation BID 05/29/21 03/31/22 mcg/actuation HFA aerosol inhaler (Flovent HFA) metformin 500 mg tablet 1 tab PO BID 05/29/21 03/31/22 montelukast 10 mg tablet 1 tab PO BEDTIME 05/29/21 03/31/22 verapamil 240 mg tablet,extended 240 mg PO BEDTIME 05/29/21 03/31/22 release albuterol sulfate 90 mcg/actuation 2 puff inhalation Q4H PRN 06/15/21 03/31/22 aerosol inhaler (Ventolin HFA) Shortness Of Breath trazodone 150 mg tablet 150 mg PO BEDTIME PRN insomnia 11/05/21 03/31/22 lisinopril 5 mg tablet 1 tab PO DAILY 11/14/21 03/31/22 benztropine 1 mg tablet 1 mg PO DAILY 12/26/21 03/31/22 naproxen 500 mg tablet 1 tab PO BID 01/23/22 03/31/22 fluphenazine HCl 2.5 mg tablet 1 tab PO BEDTIME 03/19/22 03/31/22 fluphenazine HCl 5 mg tablet 1 tab PO BEDTIME 03/19/22 03/31/22 Previous Rx's Medication Instructions Recorded fluoxetine 20 mg capsule 40 mg PO DAILY 30 days #60 caps 09/29/21 mirtazapine 7.5 mg tablet 7.5 mg PO BEDTIME MRX1 30 days #60 10/18/21 tabs prazosin 1 mg capsule 4 mg PO BEDTIME 30 days #120 caps 10/18/21 ondansetron 4 mg disintegrating 4 mg PO Q6-8H PRN nausea and 02/04/22 tablet vomiting #14 tabs docusate sodium 100 mg capsule 100 mg PO BID Constipation #60 caps 02/07/22 (Colace) benzonatate 200 mg capsule 200 mg PO TID PRN cough #20 caps 03/21/22 Allergies Allergy/AdvReac Type Severity Reaction Status Date / Time Fish Containing Products Allergy Severe ANAPHYLAXIS Verified 03/27/22 20:11 codeine [Codeine] Allergy Unknown RASH Verified 03/27/22 20:11 Penicillins Allergy Unknown RASH Verified 03/27/22 20:11 prednisone [Prednisone] Allergy Unknown RASH Verified 03/27/22 20:11 Sulfa (Sulfonamide Allergy Unknown RASH Verified 03/27/22 20:11 Antibiotics) [Sulfa (Sulfonamides)] azithromycin [AZITHROMYCIN] AdvReac Severe RASH Verified 03/27/22 20:11 nicotine AdvReac Unknown HEART Verified 03/27/22 20:11 PALPITATION TO NICOTINE GUM Seafood Allergy Severe ANAPHYLAXIS Uncoded 11/05/21 21:13 From Geodon Allergy Unknown DYSURIA, Uncoded 11/05/21 21:13 RASH Review of Systems Review of Systems: Yes all other systems are reviewed and are negative PMFSH Past Medical History Medical History Acetaminophen overdose Borderline personality disorder Bronchitis Depression Diabetes type 2, controlled GERD (gastroesophageal reflux disease) History of attempted suicide History of non-suicidal self-harm Hyperlipidemia Hypomagnesemia MDD (major depressive disorder), recurrent episode, severe Mood disorder Overdose PTSD (post-traumatic stress disorder) Suicide attempt Suicide attempt by acetaminophen overdose Social History Social History 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: None 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 Other:: Patient lives in [facility]. 4 in total live in [facility]. Housing: Other Housing Other:: [facility] Do you presently have visiting nurse or other home services: No Unable to assess alcohol history related to: Unknown Alcohol intake: never Patient Tobacco Use Status: Current everyday Tobacco user Tobacco use type: Cigarette Cigarette Packs Per Day: 1 Cigarettes Per Day: 20 Years Smoked: 20 e-Cigarette/Vaping Use: Never Used Substance Use Type: Caffiene Advance Directives: No Advance Directives Information Provided: No service: No Current occupational status: disabled Sexual orientation: Don't Know Physical Exam Vital Signs: Vital Signs: Last Vital Signs Temp 97.4 F 04/01/22 07:46 Pulse 90 04/01/22 07:46 Resp 18 04/01/22 07:46 BP 138/90 H 04/01/22 07:46 Pulse Ox 98 04/01/22 07:46 O2 Del Method 04/01/22 07:46 BMI result Body Mass Index 38.6 Const: Other: Awake, alert, female patient, she is pleasant cooperative, she does not appear to be in distress, she answers all questions appropriately HEENT: Head: Yes normal to inspection, Yes normocephalic and Yes atraumatic Ears: external ears normal General nose exam: Normal external nose present Face and sinus: Yes normal facial exam Mouth: Normal oral and palatal mucosa present Throat: Yes posterior oropharynx normal Eyes: General: appearance normal, both eyes and all related structures Pupils: Equal, round and reactive pupils present Neck: Neck: Yes normal visual inspection, Yes no lymphadenopathy, Yes trachea midline and Yes supple Chest: Chest palpation & inspection: normal inspection of the chest and normal palpation of entire chest wall Resp: Effort & Inspection: normal respiratory effort and able to speak in complete sentences Auscultation: clear to auscultation bilaterally Cardio: Rate: regular rate Rhythm: regular rhythm Heart sounds: S1 normal heart sound present, S2 normal heart sound present and no murmurs GI: Inspection: Yes normal to inspection Palpation (GI): Soft to palpation, nontender and no guarding Auscultation: normal bowel sounds : General: Yes no CVA tenderness Back/Spine/Pelvis: Back: no CVA tenderness Skin: Other: Patient has multiple superficial self-inflicted abrasions to her right arm and abdominal area, these are in various stages of healing, none appear to be very deep or need suture repair , there is no erythema increased warmth or evidence of cellulitis at this time. Neuro: Cranial nerves: Yes CN's II-XII intact bilaterally and Yes Equal, round and reactive pupils present Cognition (Neuro): normal cognition Motor exam (neuro): 5/5 motor strength present throughout Extrem: General: Yes normal to inspection Psych: Appearance: grossly normal Speech and movement: Normal speech and movement present Affect: normal affect Attitude: cooperative Thought process: Normal thought process present Thought content: Suicidality present Course Course Course Narrative: 46-year-old female who presents emergency department for evaluation of depression x3 days and self-inflicted superficial lacerations to her right arm and abdomen with the past 2-3 days who is well-known to the emergency department and is seen often for psychiatric issues. Patient was evaluated by [facility] as an outpatient, she was placed on a Section 12 and then sent to the emergency department for further treatment and evaluation. The patient states that she is suicidal and has a planned overdose on aspirin. The patient denies taking any [id number]-axmmsgw medications. She states she has been compliant with her medications and did take all of her evening medications. At this time, I do not think the patient needs any blood work since she has been seen here frequently. 2252: Start physician observation at 22:52 hours. The patient will be placed in physician observation since she is on a Section 12, she is suicidal and she currently is on a bed search for appropriate psychiatric inpatient bed. I did order the patient's outpatient medication regimen including all of her psychiatric medications. The patient's exam is unchanged, she is awake and alert, she is in no distress, lungs were clear, heart regular rate rhythm, abdomen soft nontender, neurologic exam was nonfocal. 0848: Physician observation continued: Patient remains calm and cooperative, physical examination is unremarkable. Patient's care was turned over to the physician title i instructional assistant, Shira Schreiber. [facility] - Psych Lab Data Labs: Lab Results 03/31/22 04/01/22 Range/Units 23:35 05:46 Urine Opiates Screen Not Detected (Not Detect) Urine Fentanyl Screen POSITIVE H (Not Detect) Ur Barbiturates Screen Not Detected (Not Detect) Ur Phencyclidine Scrn Not Detected (Not Detect) Ur Amphetamines Screen Not Detected (Not Detect) U Benzodiazepines Scrn Not Detected (Not Detect) Urine Cocaine Screen Not Detected (Not Detect) U Marijuana (THC) Screen Not Detected (Not Detect) COVID-19 ([facility]) Negative (Negative) COVID-19 Clin Com See Note Discharge Plan Discharge Clinical Impression: Suicidal ideation, Depression Patient Disposition: Still a Patient Prescriptions: No Action metformin 500 mg tablet 1 tab PO BID atorvastatin 10 mg tablet 1 tab PO DAILY verapamil 240 mg tablet extended release 240 mg PO BEDTIME montelukast 10 mg tablet 1 tab PO BEDTIME fluticasone propionate [Flovent HFA] 110 mcg/actuation HFA aerosol inhaler 2 puff inhalation BID albuterol sulfate [Ventolin HFA] 90 mcg/actuation HFA aerosol inhaler 2 puff inhalation Q4H PRN (Reason: Shortness Of Breath) trazodone 150 mg tablet 150 mg PO BEDTIME PRN (Reason: insomnia) benztropine 1 mg tablet 1 mg PO DAILY naproxen 500 mg tablet 1 tab PO BID docusate sodium [Colace] 100 mg capsule 100 mg PO BID Qty: 60 0RF benzonatate 200 mg capsule 200 mg PO TID PRN (Reason: cough) Qty: 20 0RF fluoxetine 20 mg Capsule 40 mg PO DAILY 30 Days Qty: 60 0RF prazosin 1 mg Capsule 4 mg PO BEDTIME 30 Days Qty: 120 0RF Protocol: Hold for SBP< HOLD for SBP < : 90 mirtazapine 7.5 mg Tablet 7.5 mg PO BEDTIME MRX1 30 Days Qty: 60 0RF lisinopril 5 mg tablet 1 tab PO DAILY ondansetron 4 mg tablet,disintegrating 4 mg PO Q6-8H PRN (Reason: nausea and vomiting) Qty: 14 0RF fluphenazine HCl 2.5 mg tablet 1 tab PO BEDTIME fluphenazine HCl 5 mg tablet 1 tab PO BEDTIME
[2022-03-31 23:55] LABS: COVID-19 Test Negative (Negative); IDNOW Serial# 16C4AD1C
[2022-04-01 05:43] VITALS: BP 116/54; PULSE 79; RESP 16; TEMP 36.2; O2SAT 95
--- NOTE | 2022-04-01 05:57 | PC.NURSE ---
Patient slept through the night, no distress observed/reported, patient was assessed by [facility] in the community with disposition section 12 inpatient bed search, med rec completed/DEC updated, behavior non concerning, contracted for the safety, will continue to monitor.
[2022-04-01 06:08] LABS: Amphetamine Screen Urine Not Detected (Not Detect); Barbiturates, Urine Not Detected (Not Detect); Benzodiazepines Screen Urine Not Detected (Not Detect); Cannabinoid Screen Urine Not Detected (Not Detect); Cocaine Screen Urine Not Detected (Not Detect); Fentanyl, urine POSITIVE (Not Detect); Opiate Screen Urine Not Detected (Not Detect); Phencyclidine Screen Urine Not Detected (Not Detect)
[2022-04-01 07:46] VITALS: BP 138/90; PULSE 90; RESP 18; TEMP 36.3; O2SAT 98
[2022-04-01] MEDS: Benztropine Mesylate 1 MG TABLET PO (08:55)
[2022-04-01] MEDS: lisinopriL 5 MG TABLET PO (08:55)
[2022-04-01] MEDS: FLUoxetine HCl 20 MG CAPSULE 40 MG PO (08:55)
[2022-04-01] MEDS: NaPROXEN 500 MG TABLET PO (09:02)
[2022-04-01] MEDS: Docusate Sodium 100 MG CAPSULE PO (09:10)
[2022-04-01] MEDS: Atorvastatin Calcium 10 MG TABLET PO (09:11)
[2022-04-01] MEDS: metFORMIN HCl 500 MG TABLET PO (09:11)
--- NOTE | 2022-04-01 09:27 | MHC.CARE ---
Spoke to patient at her request, she stated that she no longer feels suicidal and would like to be discharged home this morning. Discussed the events of yesterday--seems that while at the day program she felt triggered and called [facility] crisis (unknown to staff), they made a plan to speak with her in two hours, in that time the program ended and she went home where [facility] came to evaluate her and determined her to need inpatient psychiatric care based on her suicidal urges. Patient reflected and was able to articulate what was distressing, feelings and thoughts up to and during the crisis but stated she is unable to stop herself once in a spiral such as this. She is future oriented, getting her check in two days, sees her therapist on Sun and is looking forward to going to camp on 04/06/22. Patient shared a new workbook, Stopping the Pain, that she has been using and thinks is helpful. Call to nursing home and spoke to Sumeet, he has no new concerns about patient and will welcome her home. ED provider, TIMI Faria in agreement with plan to discharge patient. ABN updated about status change
--- NOTE | 2022-04-01 09:31 | PC.NURSE ---
PT CLEARED FOR DISCHARGE. MORNING MEDS GIVEN. NO COMPLAINTS
== END 2022-04-01 09:49 | disposition home or self-care (01) ==
PROVIDERS: Emergency Provider Emergency Medicine Emergency Medical Services
DX: R45.851 Suicidal ideations (principal); F33.9 Major depressive disorder, recurrent, unspecified; F43.10 Post-traumatic stress disorder, unspecified; E11.9 Type 2 diabetes mellitus without complications; Z79.84 Long term (current) use of oral hypoglycemic drugs; Z79.899 Other long term (current) drug therapy; Z91.51 Personal history of suicidal behavior; Z91.52 Personal history of nonsuicidal self-harm; Z20.822 Contact with and (suspected) exposure to COVID-19
CPT/HCPCS: 80307; 87635; 99284

== ENCOUNTER 2022-04-08 18:25 | Emergency (ER) | payer MEDICARE, MEDICAID, SELFPAY ==
[2022-04-08 18:33] VITALS: BP 145/91; PULSE 106; PULSE 107; RESP 18; TEMP 36.5; O2SAT 97; O2SAT 98; BMI 36.6
--- NOTE | 2022-04-08 18:36 | ECG_ITS ---
Test Reason : MED CLEARANCE Blood Pressure : / mmHG Vent. Rate : 076 BPM Atrial Rate : 076 BPM P-R Int : 200 ms QRS Dur : 084 ms QT Int : 398 ms P-R-T Axes : 063 055 058 degrees QTc Int : 447 ms Normal sinus rhythm Normal ECG When compared with ECG of 21-MAR-2022 19:55, No significant change was found Referred By: Rosario Murry Electronically Signed By:DONALD HOOKER MD
--- NOTE | 2022-04-08 18:36 | ED.PSYCH ---
HPI - Psych General Chief Complaint: Psychiatric Symptoms Stated Complaint: crisis Source: patient and EMS Mode of arrival: EMS Limitations: no limitations History of Present Illness HPI Narrative: 46-year-old female presents via EMS for erratic and disoriented behavior. Patient was found on the sidewalk without any apparent injuries, outside of her skilled nursing. Patient stated that she wanted to hurt herself by cutting her wrists. MD complaint: suicidal ideation and feels depressed Onset (ago): year(s) Duration: constant History of same: Yes Relieving factors: none Context: significant life stressor Associated psychiatric symptoms: depression, suicidal ideation and delusions Associated symptoms: denies other symptoms If self harm: admits thoughts of self harm, has plan and has acted on plan Related Data Home Medications Medication Instructions Recorded Confirmed atorvastatin 10 mg tablet 1 tab PO DAILY 05/29/21 04/08/22 fluticasone propionate 110 2 puff inhalation BID 05/29/21 04/08/22 mcg/actuation HFA aerosol inhaler (Flovent HFA) metformin 500 mg tablet 1 tab PO BID 05/29/21 04/08/22 montelukast 10 mg tablet 1 tab PO BEDTIME 05/29/21 04/08/22 verapamil 240 mg tablet,extended 240 mg PO BEDTIME 05/29/21 04/08/22 release albuterol sulfate 90 mcg/actuation 2 puff inhalation Q4H PRN 06/15/21 04/08/22 aerosol inhaler (Ventolin HFA) Shortness Of Breath trazodone 150 mg tablet 150 mg PO BEDTIME PRN insomnia 11/05/21 04/08/22 lisinopril 5 mg tablet 1 tab PO DAILY 11/14/21 04/08/22 benztropine 1 mg tablet 1 mg PO DAILY 12/26/21 04/08/22 naproxen 500 mg tablet 1 tab PO BID 01/23/22 04/08/22 fluphenazine HCl 2.5 mg tablet 1 tab PO BEDTIME 03/19/22 04/08/22 fluphenazine HCl 5 mg tablet 1 tab PO BEDTIME 03/19/22 04/08/22 Previous Rx's Medication Instructions Recorded fluoxetine 20 mg capsule 40 mg PO DAILY 30 days #60 caps 09/29/21 mirtazapine 7.5 mg tablet 7.5 mg PO BEDTIME MRX1 30 days #60 10/18/21 tabs prazosin 1 mg capsule 4 mg PO BEDTIME 30 days #120 caps 10/18/21 ondansetron 4 mg disintegrating 4 mg PO Q6-8H PRN nausea and 02/04/22 tablet vomiting #14 tabs docusate sodium 100 mg capsule 100 mg PO BID Constipation #60 caps 02/07/22 (Colace) benzonatate 200 mg capsule 200 mg PO TID PRN cough #20 caps 03/21/22 Allergies Allergy/AdvReac Type Severity Reaction Status Date / Time Fish Containing Products Allergy Severe ANAPHYLAXIS Verified 03/27/22 20:11 codeine [Codeine] Allergy Unknown RASH Verified 03/27/22 20:11 Penicillins Allergy Unknown RASH Verified 03/27/22 20:11 prednisone [Prednisone] Allergy Unknown RASH Verified 03/27/22 20:11 Sulfa (Sulfonamide Allergy Unknown RASH Verified 03/27/22 20:11 Antibiotics) [Sulfa (Sulfonamides)] azithromycin [AZITHROMYCIN] AdvReac Severe RASH Verified 03/27/22 20:11 nicotine AdvReac Unknown HEART Verified 03/27/22 20:11 PALPITATION TO NICOTINE GUM Seafood Allergy Severe ANAPHYLAXIS Uncoded 11/05/21 21:13 From Geodon Allergy Unknown DYSURIA, Uncoded 11/05/21 21:13 RASH Review of Systems Review of Systems: Constitutional: No Fever, No Chills ENT/Mouth: No Ear Pain, No Nasal Congestion, No sore throat Eyes: No Eye Pain, No Swelling, No Redness Cardiovascular: No Chest Pain, No SOB Respiratory: No Cough, No Sputum, No Dyspnea Gastrointestinal: No Nausea, No Vomiting, No Diarrhea, No Hematochezia, No Melena Genitourinary: No Dysuria, No Urinary Frequency, No Hematuria Musculoskeletal: No Myalgias Skin: No Skin Lesions, No rash Neuro: No Weakness, No Numbness, No Paresthesias, No Dizziness, No Headache Psych: positive Anxiety, positive Depression, positive SI Heme/Lymph: No Lymphadenopathy Endocrine: No Polyuria, No Polydipsia Yes all other systems are reviewed and are negative [facility] Past Medical History Attestation statement: The following information was validated with the patient. Source: old records reviewed Medical History Acetaminophen overdose Borderline personality disorder Bronchitis Depression Diabetes type 2, controlled GERD (gastroesophageal reflux disease) History of attempted suicide History of non-suicidal self-harm Hyperlipidemia Hypomagnesemia MDD (major depressive disorder), recurrent episode, severe Mood disorder Overdose PTSD (post-traumatic stress disorder) Suicide attempt Suicide attempt by acetaminophen overdose Social History Social History 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: None 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 Other:: Patient lives in skilled nursing. 4 in total live in skilled nursing. Housing: Other Housing Other:: skilled nursing Do you presently have visiting nurse or other home services: No Unable to assess alcohol history related to: Unknown Alcohol intake: never Patient Tobacco Use Status: Current everyday Tobacco user Tobacco use type: Cigarette Cigarette Packs Per Day: 1 Cigarettes Per Day: 20 Years Smoked: 20 e-Cigarette/Vaping Use: Never Used Substance Use Type: Caffiene Advance Directives: No Advance Directives Information Provided: No Patient : No service: No Current occupational status: disabled Sexual orientation: Don't Know Physical Exam Vital Signs: Vital Signs: Last Vital Signs Temp 97.7 F 04/08/22 18:33 Pulse 107 H 04/08/22 18:33 Resp 18 04/08/22 18:33 BP 145/91 H 04/08/22 18:33 Pulse Ox 97 04/08/22 18:33 O2 Del Method 04/08/22 18:33 BMI result Body Mass Index 36.6 Appearance: Alert. Oriented X3. No acute distress. Eyes: Pupils equal, round and reactive to light. ENT: Pharynx normal. Neck: Normal inspection. Neck supple. CVS: Normal heart rate and rhythm. Pulses normal. Respiratory: No respiratory distress. Breath sounds normal. Abdomen: Soft and nontender. Skin: Skin warm and dry. Normal skin color. Normal skin turgor. Numerous healed scars from self-inflicted wounds. Extremities: No lower extremity edema. Gait well-balanced well coordinated. Neuro: No motor deficit. No sensory deficit. Cranial nerves 2-12 intact. Course Course Course Narrative: 46-year-old female presents via EMS for suicidal ideation and erratic behavior. Patient was found outside of her skilled nursing sitting on the sidewalk with no apparent physical injuries. Plan of care is for labs, tox screen, and crisis evaluation 01:32 medically cleared. Tox screen is negative. Physician observation started at this time. MDM - Psych Differential Diagnosis Differential diagnosis: Likely acute psychosis, suicidal ideation, depression, drug-induced psychotic disorder and acute anxiety Medical Records Attestation: I reviewed the patient's medical records. Lab Data Attestation: I reviewed the patient's lab results. Result diagrams: 04/08/22 19:07 04/08/22 19:07 Labs: Lab Results 04/08/22 04/08/22 04/08/22 Range/Units 18:43 18:43 18:43 WBC (4.8-10.8) X10*3/uL RBC (4.20-5.50) X10*6/uL Hgb (12.0-16.0) g/dl Hct (37.0-47.0) % MCV (80.0-98.0) fL MCH (27.0-33.0) pg MCHC (31.0-35.0) g/dl RDW (11.0-16.0) % Plt Count (160-400) X10*3/uL MPV (9.4-12.3) fL Immature Gran % (Auto) (0.0-0.4) % Neut % (Auto) (45-73) % Lymph % (Auto) (20-40) % [place] % (Auto) (2-11) % Eos % (Auto) (0-4) % Baso % (Auto) (0-2) % Lymph # (Auto) (1.2-4.9) X10*3/uL [place] # (Auto) (0.1-1.2) X10*3/uL Eos # (Auto) (0.0-0.4) X10*3/uL Baso # (Auto) (0.0-0.2) X10*3/uL Abs Immat Gran (auto) (0.00-0.03) X10*3/uL Absolute Neuts (auto) (2.0-8.3) x10*3/uL Absolute Nucleated RBC (0.0-0.012) X10*3/uL Nucleated RBC % (auto) (0.0-0.2) /100WBC PT (9.9-13.0) SEC INR (0.9-1.1) APTT (24.1-38.0) SEC Sodium (135-145) mmol/L Potassium (3.3-5.1) mmol/L Chloride (96-108) mmol/L Carbon Dioxide (22-29) mmol/L Anion Gap (12-20) BUN (9-16) mg/dL Creatinine (0.5-1.4) mg/dL Estim Creat Clear Calc Estimated GFR Random Glucose (60-115) mg/dL Calcium (8.4-10.2) mg/dL Total Bilirubin (0.0-1.0) mg/dL Direct Bilirubin (0.0-0.5) mg/dL AST (5-31) U/L ALT (0-31) U/L Alkaline Phosphatase (39-117) U/L Total Protein (6.5-8.0) g/dL Albumin (3.5-5.0) g/dL Lipase (8-78) U/L Urine Color YELLOW Urine Appearance CLEAR Urine pH 5.5 (5.0-8.0) Ur Specific [place] <= 1.005 (1.005-1.025) Urine Protein NEG (NEG-TRACE) MG/DL Urine Glucose (UA) NEG (NEG) MG/DL Urine Ketones NEG (NEG) MG/DL Urine Blood 3+ H (NEG) Urine Nitrite NEG (NEG) Ur Leukocyte Esterase NEG (NEG) Urine RBC 5-9 H (0) /HPF Urine WBC 0-2 (0-4) /HPF Ur Squamous Epith Cells TRACE /LPF Urine Bacteria NONE /LPF Urine Test NEGATIVE (NEGATIVE) Salicylates (15-30) mg/dL Urine Opiates Screen Not Detected (Not Detect) Urine Fentanyl Screen Not Detected (Not Detect) Acetaminophen (<30) mcg/mL Ur Barbiturates Screen Not Detected (Not Detect) Ur Phencyclidine Scrn Not Detected (Not Detect) Ur Amphetamines Screen Not Detected (Not Detect) U Benzodiazepines Scrn Not Detected (Not Detect) Urine Cocaine Screen Not Detected (Not Detect) U Marijuana (THC) Screen Not Detected (Not Detect) Ethyl Alcohol mg/dL COVID-19 (NICK) (Negative) COVID-19 Clin Com 04/08/22 04/08/22 04/08/22 Range/Units 19:07 19:07 19:07 WBC 7.5 (4.8-10.8) X10*3/uL RBC 3.82 L (4.20-5.50) X10*6/uL Hgb 11.2 L (12.0-16.0) g/dl Hct 33.8 L (37.0-47.0) % MCV 88.5 (80.0-98.0) fL MCH 29.3 (27.0-33.0) pg MCHC 33.1 (31.0-35.0) g/dl RDW 13.5 (11.0-16.0) % Plt Count 267 (160-400) X10*3/uL MPV 9.5 (9.4-12.3) fL Immature Gran % (Auto) 0.4 (0.0-0.4) % Neut % (Auto) 62.2 (45-73) % Lymph % (Auto) 23.8 (20-40) % [place] % (Auto) 7.4 (2-11) % Eos % (Auto) 5.9 H (0-4) % Baso % (Auto) 0.3 (0-2) % Lymph # (Auto) 1.8 (1.2-4.9) X10*3/uL [place] # (Auto) 0.6 (0.1-1.2) X10*3/uL Eos # (Auto) 0.4 (0.0-0.4) X10*3/uL Baso # (Auto) 0.0 (0.0-0.2) X10*3/uL Abs Immat Gran (auto) 0.03 (0.00-0.03) X10*3/uL Absolute Neuts (auto) 4.6 (2.0-8.3) x10*3/uL Absolute Nucleated RBC 0.000 (0.0-0.012) X10*3/uL Nucleated RBC % (auto) 0.0 (0.0-0.2) /100WBC PT 10.9 (9.9-13.0) SEC INR 1.0 (0.9-1.1) APTT 38.8 H (24.1-38.0) SEC Sodium 140 (135-145) mmol/L Potassium 3.9 (3.3-5.1) mmol/L Chloride 108 (96-108) mmol/L Carbon Dioxide 24 (22-29) mmol/L Anion Gap 12 (12-20) BUN 8 L (9-16) mg/dL Creatinine 0.79 (0.5-1.4) mg/dL Estim Creat Clear Calc 106.3 Estimated GFR > 60 Random Glucose 92 (60-115) mg/dL Calcium 8.8 (8.4-10.2) mg/dL Total Bilirubin 0.2 (0.0-1.0) mg/dL Direct Bilirubin < 0.2 (0.0-0.5) mg/dL AST 18 (5-31) U/L ALT 14 (0-31) U/L Alkaline Phosphatase 93 (39-117) U/L Total Protein 6.8 (6.5-8.0) g/dL Albumin 4.3 (3.5-5.0) g/dL Lipase 19 (8-78) U/L Urine Color Urine Appearance Urine pH (5.0-8.0) Ur Specific [place] (1.005-1.025) Urine Protein (NEG-TRACE) MG/DL Urine Glucose (UA) (NEG) MG/DL Urine Ketones (NEG) MG/DL Urine Blood (NEG) Urine Nitrite (NEG) Ur Leukocyte Esterase (NEG) Urine RBC (0) /HPF Urine WBC (0-4) /HPF Ur Squamous Epith Cells /LPF Urine Bacteria /LPF Urine Test (NEGATIVE) Salicylates < 5.0 L (15-30) mg/dL Urine Opiates Screen (Not Detect) Urine Fentanyl Screen (Not Detect) Acetaminophen < 1 (<30) mcg/mL Ur Barbiturates Screen (Not Detect) Ur Phencyclidine Scrn (Not Detect) Ur Amphetamines Screen (Not Detect) U Benzodiazepines Scrn (Not Detect) Urine Cocaine Screen (Not Detect) U Marijuana (THC) Screen (Not Detect) Ethyl Alcohol mg/dL COVID-19 (NICK) (Negative) COVID-19 Clin Com 04/08/22 04/08/22 04/09/22 Range/Units 19:07 19:07 00:16 WBC (4.8-10.8) X10*3/uL RBC (4.20-5.50) X10*6/uL Hgb (12.0-16.0) g/dl Hct (37.0-47.0) % MCV (80.0-98.0) fL MCH (27.0-33.0) pg MCHC (31.0-35.0) g/dl RDW (11.0-16.0) % Plt Count (160-400) X10*3/uL MPV (9.4-12.3) fL Immature Gran % (Auto) (0.0-0.4) % Neut % (Auto) (45-73) % Lymph % (Auto) (20-40) % [place] % (Auto) (2-11) % Eos % (Auto) (0-4) % Baso % (Auto) (0-2) % Lymph # (Auto) (1.2-4.9) X10*3/uL [place] # (Auto) (0.1-1.2) X10*3/uL Eos # (Auto) (0.0-0.4) X10*3/uL Baso # (Auto) (0.0-0.2) X10*3/uL Abs Immat Gran (auto) (0.00-0.03) X10*3/uL Absolute Neuts (auto) (2.0-8.3) x10*3/uL Absolute Nucleated RBC (0.0-0.012) X10*3/uL Nucleated RBC % (auto) (0.0-0.2) /100WBC PT Cancelled (9.9-13.0) SEC INR Cancelled (0.9-1.1) APTT (24.1-38.0) SEC Sodium (135-145) mmol/L Potassium (3.3-5.1) mmol/L Chloride (96-108) mmol/L Carbon Dioxide (22-29) mmol/L Anion Gap (12-20) BUN (9-16) mg/dL Creatinine (0.5-1.4) mg/dL Estim Creat Clear Calc Estimated GFR Random Glucose (60-115) mg/dL Calcium (8.4-10.2) mg/dL Total Bilirubin (0.0-1.0) mg/dL Direct Bilirubin (0.0-0.5) mg/dL AST (5-31) U/L ALT (0-31) U/L Alkaline Phosphatase (39-117) U/L Total Protein (6.5-8.0) g/dL Albumin (3.5-5.0) g/dL Lipase (8-78) U/L Urine Color Urine Appearance Urine pH (5.0-8.0) Ur Specific [place] (1.005-1.025) Urine Protein (NEG-TRACE) MG/DL Urine Glucose (UA) (NEG) MG/DL Urine Ketones (NEG) MG/DL Urine Blood (NEG) Urine Nitrite (NEG) Ur Leukocyte Esterase (NEG) Urine RBC (0) /HPF Urine WBC (0-4) /HPF Ur Squamous Epith Cells /LPF Urine Bacteria /LPF Urine Test (NEGATIVE) Salicylates (15-30) mg/dL Urine Opiates Screen (Not Detect) Urine Fentanyl Screen (Not Detect) Acetaminophen (<30) mcg/mL Ur Barbiturates Screen (Not Detect) Ur Phencyclidine Scrn (Not Detect) Ur Amphetamines Screen (Not Detect) U Benzodiazepines Scrn (Not Detect) Urine Cocaine Screen (Not Detect) U Marijuana (THC) Screen (Not Detect) Ethyl Alcohol < 10 mg/dL COVID-19 (NICK) Negative (Negative) COVID-19 Clin Com See Note Discharge Plan Discharge Clinical Impression: Suicidal ideation, Acute anxiety, Acute psychosis Patient Disposition: Still a Patient Instructions: Anxiety (ED), Paranoid Personality Disorder (ED) Additional Instructions: Follow-up with outpatient psychiatry as scheduled. Thank you for choosing this emergency department for evaluation. Please follow-up with primary care physician as needed. Return to the emergency department for any new, concerning, or worsening symptoms. Prescriptions: No Action metformin 500 mg tablet 1 tab PO BID atorvastatin 10 mg tablet 1 tab PO DAILY verapamil 240 mg tablet extended release 240 mg PO BEDTIME montelukast 10 mg tablet 1 tab PO BEDTIME fluticasone propionate [Flovent HFA] 110 mcg/actuation HFA aerosol inhaler 2 puff inhalation BID albuterol sulfate [Ventolin HFA] 90 mcg/actuation HFA aerosol inhaler 2 puff inhalation Q4H PRN (Reason: Shortness Of Breath) trazodone 150 mg tablet 150 mg PO BEDTIME PRN (Reason: insomnia) benztropine 1 mg tablet 1 mg PO DAILY naproxen 500 mg tablet 1 tab PO BID docusate sodium [Colace] 100 mg capsule 100 mg PO BID Qty: 60 0RF benzonatate 200 mg capsule 200 mg PO TID PRN (Reason: cough) Qty: 20 0RF fluoxetine 20 mg Capsule 40 mg PO DAILY 30 Days Qty: 60 0RF prazosin 1 mg Capsule 4 mg PO BEDTIME 30 Days Qty: 120 0RF Protocol: Hold for SBP< HOLD for SBP < : 90 mirtazapine 7.5 mg Tablet 7.5 mg PO BEDTIME MRX1 30 Days Qty: 60 0RF lisinopril 5 mg tablet 1 tab PO DAILY ondansetron 4 mg tablet,disintegrating 4 mg PO Q6-8H PRN (Reason: nausea and vomiting) Qty: 14 0RF fluphenazine HCl 2.5 mg tablet 1 tab PO BEDTIME fluphenazine HCl 5 mg tablet 1 tab PO BEDTIME
[2022-04-08 18:59] LABS: Appearance Urine CLEAR; Color Urine YELLOW; Glucose Urine UA NEG (NEG); Leukocyte Esterase Urine NEG (NEG); Nitrite Urine NEG (NEG); PH 5.5 (5.0-8.0); Specific Gravity - Urine <= 1.005 (1.005-1.025); UACC Culture Trigger NO; Urine Blood 3+ (NEG); Urine Ketones NEG (NEG); Urine Protein NEG (NEG-TRACE)
[2022-04-08 19:12] LABS: UPreg QC Valid YES; Urine Pregnancy NEGATIVE (NEGATIVE)
[2022-04-08 19:13] LABS: MANUAL DIFF FLAG NO
[2022-04-08 19:15] LABS: Basophils Percent Auto 0.3 % (0-2); Eosinophils Absolute Auto 0.4 X10*3/uL (0.0-0.4); Eosinophils Percent Auto 5.9 % (0-4); Hematocrit 33.8 % (37.0-47.0); Hemoglobin 11.2 g/dl (12.0-16.0); Imm Gran Abs Auto 0.03 X10*3/uL (0.00-0.03); Imm Gran Pct Auto 0.4 % (0.0-0.4); Lymphocytes Absolute Auto 1.8 X10*3/uL (1.2-4.9); Lymphocytes Percent Auto 23.8 % (20-40); Mean Corpuscular HGB Conc 33.1 g/dl (31.0-35.0); Mean Corpuscular Hemoglobin 29.3 pg (27.0-33.0); Mean Corpuscular Volume 88.5 fL (80.0-98.0); Mean Platelet Volume 9.5 fL (9.4-12.3); Monocytes Absolute Auto 0.6 X10*3/uL (0.1-1.2); Monocytes Percent Auto 7.4 % (2-11); Neutrophils Absolute Auto 4.6 x10*3/uL (2.0-8.3); Neutrophils Percent Auto 62.2 % (45-73); Platelet Count 267 X10*3/uL (160-400); Red Blood Count 3.82 X10*6/uL (4.20-5.50); Red Cell Distribution Width 13.5 % (11.0-16.0); White Blood Count 7.5 X10*3/uL (4.8-10.8)
[2022-04-08 19:16] LABS: Amphetamine Screen Urine Not Detected (Not Detect); Barbiturates, Urine Not Detected (Not Detect); Benzodiazepines Screen Urine Not Detected (Not Detect); Cannabinoid Screen Urine Not Detected (Not Detect); Cocaine Screen Urine Not Detected (Not Detect); Fentanyl, urine Not Detected (Not Detect); Opiate Screen Urine Not Detected (Not Detect); Phencyclidine Screen Urine Not Detected (Not Detect)
[2022-04-08 19:27] LABS: Ethanol < 10 mg/dL
[2022-04-08 19:31] LABS: Alanine Aminotransferase 14 U/L (0-31); Albumin Level 4.3 g/dL (3.5-5.0); Alkaline Phosphatase 93 U/L (39-117); Anion Gap 12 (12-20); Aspartate Amino Transferase 18 U/L (5-31); Bilirubin Direct < 0.2 mg/dL (0.0-0.5); Bilirubin Total 0.2 mg/dL (0.0-1.0); Blood Urea Nitrogen 8 mg/dL (9-16); Calcium 8.8 mg/dL (8.4-10.2); Carbon Dioxide 24 mmol/L (22-29); Chloride 108 mmol/L (96-108); Creatinine Clr Calc Pharmacy 106.3; Estimated Glomerular Filt Rate > 60; Glucose Random 92 mg/dL (60-115); Lipase 19 U/L (8-78); Potassium 3.9 mmol/L (3.3-5.1); Sodium 140 mmol/L (135-145); Total Protein 6.8 g/dL (6.5-8.0)
[2022-04-08 19:33] LABS: Prothrombin Time 10.9 SEC (9.9-13.0)
[2022-04-08 19:35] LABS: Partial Thromboplastin Time 38.8 SEC (24.1-38.0)
[2022-04-08 19:57] LABS: Acetaminophen LAB < 1 mcg/mL (<30); Salicylate < 5.0 mg/dL (15-30)
[2022-04-08 20:37] LABS: Squamous Epithelial Cell Urine TRACE /LPF; WBC Urine 0-2 /HPF (0-4)
[2022-04-09 01:11] LABS: COVID-19 Test Negative (Negative)
--- NOTE | 2022-04-09 05:36 | PC.NURSE ---
Patient slept though the night, no distress observed/reported, bhn referral completed/confirmed/pending ETA, VSS, behavior non concerning, med rec completed/confirmed/pending ETA, will continue to monitor.
[2022-04-09 06:17] VITALS: BP 147/84; PULSE 94; RESP 17; TEMP 36.5; O2SAT 97
--- NOTE | 2022-04-09 09:16 | MHC.CARE ---
Yesterday pt was transported to this facility from the community via ambulance after she was found on the sidewalk outside of her custodial appearing to be in a dissociative state.? Pt reported, on arrival to this facility, that she wanted to hurt herself by cutting her wrists.? Pt reports that she last remembered swinging on a swing in the backyard of her custodial.? She cannot recall how or why she was brought here but believes she ?Dissociated?.? She cannot identify a triggering event or other circumstance which would cause such an occurrence. Pt has been medically cleared and is being assessed by the CARE Team to determine risk. Pt has an extensive hx of inpt hospitalizations, and is known to engage in unsafe behavior when decompensated. Past documented hx of major depressive d/o, PTSD, and Borderline personality d/o. Pt has a hx of self-harm and suicide attempts. Pt is alert and oriented x4 and is assessed for risk by the CARE Team in the common area of the behavioral health pod of the ED.? Pt is neat in appearance and appears older than her stated age.? She stated that she did not recall any thoughts of suicide or self-harm yesterday and denies AH, SI, , HI and self-harm urges.? She states her sleep and appetite and sleep have been ?good?.? She reports her mood as good.? ? Pt?s mood is pleasant; she demonstrates full range of affect.? Insight, judgement, memory, and concentration are fair and appear to be at her baseline.? Pt appears to be at her baseline at this time. The plan is for pt to be discharged to the custodial.? CARE Team will secure transportation.? Pt will receive a follow up call to check on her progress.This disposition was discussed with and agreed upon by CARE Team director of collections clinician Sabine MILLER, ED Provider Derrell Zamorano and pt?s Dilma Seals.
--- NOTE | 2022-04-09 14:16 | MHC.CARE ---
CARE Team conducts a follow up call with pt.? Pt reports feeling as though she is ?Dissociating?.? She stated she began to experience the feeling while swinging on a swing in the back yard.? Pt stated that she has been trying to keep herself occupied while at home to distract herself.? Pt stated that she discuss how she is feeling with staff members in the halfway and will likely call [facility] crisis.? Pt denies self-harm urges and SI at this time.
== END 2022-04-09 09:30 | disposition other institution (70) ==
PROVIDERS: Nurse Practitioner Family; Emergency Provider Emergency Medicine
DX: F33.1 Major depressive disorder, recurrent, moderate (principal); R45.851 Suicidal ideations; F41.1 Generalized anxiety disorder; F43.0 Acute stress reaction; Z20.822 Contact with and (suspected) exposure to COVID-19; Z79.899 Other long term (current) drug therapy; F17.200 Nicotine dependence, unspecified, uncomplicated; Z71.6 Tobacco abuse counseling
CPT/HCPCS: 36415; 80048; 80076; 80143; 80179; 80307; 81001; 81003; 81025; 82077; 83690; 85025; 85610; 85730; 87635; 93005; 99284; 99285

== ENCOUNTER 2022-04-11 20:05 | Emergency (ER) | payer MEDICARE, MEDICAID, SELFPAY ==
[2022-04-11 20:09] VITALS: BP 129/81; PULSE 90; RESP 17; TEMP 36.4; O2SAT 96; BMI 39.1
--- NOTE | 2022-04-11 20:52 | ED.PSYCH ---
HPI - Psych General Chief Complaint: Psychiatric Symptoms Stated Complaint: CRISIS Time Seen by Provider: 04/11/22 20:52 Source: patient and EMS Mode of arrival: EMS Limitations: no limitations History of Present Illness HPI Narrative: Patient comes to the emergency room complaining of hearing voices telling her to overdose with her medications. Patient states she is stressed at her long-term. Patient denies homicidal ideation Related Data Home Medications Medication Instructions Recorded Confirmed atorvastatin 10 mg tablet 1 tab PO DAILY 05/29/21 04/11/22 fluticasone propionate 110 2 puff inhalation BID 05/29/21 04/11/22 mcg/actuation HFA aerosol inhaler (Flovent HFA) metformin 500 mg tablet 1 tab PO BID 05/29/21 04/11/22 montelukast 10 mg tablet 1 tab PO BEDTIME 05/29/21 04/11/22 verapamil 240 mg tablet,extended 240 mg PO BEDTIME 05/29/21 04/11/22 release albuterol sulfate 90 mcg/actuation 2 puff inhalation Q4H PRN 06/15/21 04/11/22 aerosol inhaler (Ventolin HFA) Shortness Of Breath trazodone 150 mg tablet 150 mg PO BEDTIME PRN insomnia 11/05/21 04/11/22 lisinopril 5 mg tablet 1 tab PO DAILY 11/14/21 04/11/22 benztropine 1 mg tablet 1 mg PO DAILY 12/26/21 04/11/22 naproxen 500 mg tablet 1 tab PO BID 01/23/22 04/11/22 fluphenazine HCl 2.5 mg tablet 1 tab PO BEDTIME 03/19/22 04/11/22 fluphenazine HCl 5 mg tablet 1 tab PO BEDTIME 03/19/22 04/11/22 Previous Rx's Medication Instructions Recorded fluoxetine 20 mg capsule 40 mg PO DAILY 30 days #60 caps 09/29/21 mirtazapine 7.5 mg tablet 7.5 mg PO BEDTIME MRX1 30 days #60 10/18/21 tabs prazosin 1 mg capsule 4 mg PO BEDTIME 30 days #120 caps 10/18/21 ondansetron 4 mg disintegrating 4 mg PO Q6-8H PRN nausea and 02/04/22 tablet vomiting #14 tabs docusate sodium 100 mg capsule 100 mg PO BID Constipation #60 caps 02/07/22 (Colace) benzonatate 200 mg capsule 200 mg PO TID PRN cough #20 caps 03/21/22 Allergies Allergy/AdvReac Type Severity Reaction Status Date / Time Fish Containing Products Allergy Severe ANAPHYLAXIS Verified 03/27/22 20:11 codeine [Codeine] Allergy Unknown RASH Verified 03/27/22 20:11 Penicillins Allergy Unknown RASH Verified 03/27/22 20:11 prednisone [Prednisone] Allergy Unknown RASH Verified 03/27/22 20:11 Sulfa (Sulfonamide Allergy Unknown RASH Verified 03/27/22 20:11 Antibiotics) [Sulfa (Sulfonamides)] azithromycin [AZITHROMYCIN] AdvReac Severe RASH Verified 03/27/22 20:11 nicotine AdvReac Unknown HEART Verified 03/27/22 20:11 PALPITATION TO NICOTINE GUM Seafood Allergy Severe ANAPHYLAXIS Uncoded 11/05/21 21:13 From Geodon Allergy Unknown DYSURIA, Uncoded 11/05/21 21:13 RASH Review of Systems Review of Systems: Constitutional : No Weight loss, No Fever, No Chills, No Night Sweats, No Fatigue, No Malaise ENT/Mouth : No Hearing loss, No Ear Pain, No Nasal Congestion, No Sinus Pain, No Hoarseness, No sore throat, No Rhinorrhea, No Swallowing Difficulty Eyes: No Eye Pain, No Swelling, No Redness, No Foreign Body, No Discharge, No Vision Changes Cardiovascular : No Chest Pain, No SOB, No Dyspnea on Exertion, No Orthopnea, No Edema, No Palpitations Respiratory : No Cough, No Sputum, No Wheezing, No Smoke Exposure, No Dyspnea Gastrointestinal : No Nausea, No Vomiting, No Diarrhea, No Constipation, No abdominal Pain, No Hematochezia, No Melena Genitourinary : no irregular bleeding, No Dysuria, No Urinary Frequency, No Hematuria, No Urinary Incontinence, No Urgency, No Flank Pain, No Urinary Flow Changes, No Hesitancy Musculoskeletal : No joint pain, No Myalgias, No Joint Swelling Skin : No new cuts Neuro : No Weakness, No Numbness, No Paresthesias, No Loss of Consciousness, No Dizziness, No Headache Psych : Anxious, hearing voices telling her to kill herself by overdosing using her meds, no homicidal ideation Heme/Lymph: No Bruising, No Bleeding,No Lymphadenopathy Endocrine : No Polyuria, No Polydipsia, No Temperature Intolerance PMFSH Past Medical History Medical History Acetaminophen overdose Borderline personality disorder Bronchitis Depression Diabetes type 2, controlled GERD (gastroesophageal reflux disease) History of attempted suicide History of non-suicidal self-harm Hyperlipidemia Hypomagnesemia MDD (major depressive disorder), recurrent episode, severe Mood disorder Overdose PTSD (post-traumatic stress disorder) Suicide attempt Suicide attempt by acetaminophen overdose Social History Social History 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: None 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 Other:: Patient lives in long-term. 4 in total live in long-term. Housing: Other Housing Other:: long-term Do you presently have visiting nurse or other home services: No Unable to assess alcohol history related to: Unknown Alcohol intake: never Patient Tobacco Use Status: Current everyday Tobacco user Tobacco use type: Cigarette Cigarette Packs Per Day: 1 Cigarettes Per Day: 20 Years Smoked: 20 e-Cigarette/Vaping Use: Never Used Substance Use Type: Caffiene Advance Directives: No Advance Directives Information Provided: No service: No Current occupational status: disabled Sexual orientation: Don't Know Physical Exam Vital Signs: Vital Signs: Last Vital Signs Temp 97.5 F 04/11/22 20:09 Pulse 90 04/11/22 20:09 Resp 17 04/11/22 20:09 BP 129/81 04/11/22 20:09 Pulse Ox 96 04/11/22 20:09 O2 Del Method 04/11/22 20:09 BMI result Body Mass Index 39.1 Const: Other: Appearance: Alert. Oriented X3. No acute distress. Eyes: Pupils equal, round and reactive to light. ENT: Pharynx normal. Neck: Normal inspection. Neck supple. No lymph nodes noted. No crepitus CVS: Normal heart rate and rhythm. Pulses normal. Normal S1 and S2 Respiratory: No respiratory distress. Breath sounds normal. No Wheezing. No rales Abdomen: Soft and nontender. No rigidity. No distention. Skin: Skin warm and dry. Normal skin color, all scars in both arms Extremities: No lower extremity edema. No Lacerations. No Rash Neuro: Oriented X 3. No motor deficit. No sensory deficit. Moving all extremities. No slurred speech. CN 2 through 12 grossly intact Psych: calm, cooperative, normal affect Course Course Course Narrative: Behavioral health network consult pending. Labs pending. Physician observation started at 20:50 Sign-out given to Dr. Velasco Discharge Plan Discharge Clinical Impression: Auditory hallucination Patient Disposition: Still a Patient Prescriptions: No Action metformin 500 mg tablet 1 tab PO BID atorvastatin 10 mg tablet 1 tab PO DAILY verapamil 240 mg tablet extended release 240 mg PO BEDTIME montelukast 10 mg tablet 1 tab PO BEDTIME fluticasone propionate [Flovent HFA] 110 mcg/actuation HFA aerosol inhaler 2 puff inhalation BID albuterol sulfate [Ventolin HFA] 90 mcg/actuation HFA aerosol inhaler 2 puff inhalation Q4H PRN (Reason: Shortness Of Breath) trazodone 150 mg tablet 150 mg PO BEDTIME PRN (Reason: insomnia) benztropine 1 mg tablet 1 mg PO DAILY naproxen 500 mg tablet 1 tab PO BID docusate sodium [Colace] 100 mg capsule 100 mg PO BID Qty: 60 0RF benzonatate 200 mg capsule 200 mg PO TID PRN (Reason: cough) Qty: 20 0RF fluoxetine 20 mg Capsule 40 mg PO DAILY 30 Days Qty: 60 0RF prazosin 1 mg Capsule 4 mg PO BEDTIME 30 Days Qty: 120 0RF Protocol: Hold for SBP< HOLD for SBP < : 90 mirtazapine 7.5 mg Tablet 7.5 mg PO BEDTIME MRX1 30 Days Qty: 60 0RF lisinopril 5 mg tablet 1 tab PO DAILY ondansetron 4 mg tablet,disintegrating 4 mg PO Q6-8H PRN (Reason: nausea and vomiting) Qty: 14 0RF fluphenazine HCl 2.5 mg tablet 1 tab PO BEDTIME fluphenazine HCl 5 mg tablet 1 tab PO BEDTIME
[2022-04-11 20:55] LABS: MANUAL DIFF FLAG NO
[2022-04-11 20:59] LABS: COVID-19 Test Negative (Negative); Fentanyl, urine Not Detected (Not Detect)
[2022-04-11 21:00] LABS: Amphetamine Screen Urine Not Detected (Not Detect); Barbiturates, Urine Not Detected (Not Detect); Cannabinoid Screen Urine Not Detected (Not Detect); Cocaine Screen Urine Not Detected (Not Detect); Opiate Screen Urine Not Detected (Not Detect); Phencyclidine Screen Urine Not Detected (Not Detect)
[2022-04-11] MEDS: Nicotine Polacrilex 2 MG GUM BUCCAL (21:03)
[2022-04-11 21:05] LABS: Basophils Percent Auto 0.3 % (0-2); Eosinophils Absolute Auto 0.3 X10*3/uL (0.0-0.4); Eosinophils Percent Auto 3.7 % (0-4); Hematocrit 33.1 % (37.0-47.0); Hemoglobin 10.8 g/dl (12.0-16.0); Imm Gran Abs Auto 0.04 X10*3/uL (0.00-0.03); Imm Gran Pct Auto 0.5 % (0.0-0.4); Lymphocytes Absolute Auto 2.3 X10*3/uL (1.2-4.9); Lymphocytes Percent Auto 30.4 % (20-40); Mean Corpuscular HGB Conc 32.6 g/dl (31.0-35.0); Mean Corpuscular Hemoglobin 28.9 pg (27.0-33.0); Mean Corpuscular Volume 88.5 fL (80.0-98.0); Mean Platelet Volume 9.5 fL (9.4-12.3); Monocytes Absolute Auto 0.5 X10*3/uL (0.1-1.2); Neutrophils Absolute Auto 4.4 x10*3/uL (2.0-8.3); Neutrophils Percent Auto 58.1 % (45-73); Platelet Count 266 X10*3/uL (160-400); Red Blood Count 3.74 X10*6/uL (4.20-5.50); Red Cell Distribution Width 13.2 % (11.0-16.0); White Blood Count 7.6 X10*3/uL (4.8-10.8)
[2022-04-11 21:16] LABS: Acetaminophen LAB < 1 mcg/mL (<30); Anion Gap 13 (12-20); Blood Urea Nitrogen 9 mg/dL (9-16); Calcium 9.3 mg/dL (8.4-10.2); Carbon Dioxide 26 mmol/L (22-29); Chloride 105 mmol/L (96-108); Creatinine Clr Calc Pharmacy 107.4; Estimated Glomerular Filt Rate > 60; Glucose Random 113 mg/dL (60-115); Potassium 3.8 mmol/L (3.3-5.1); Salicylate < 5.0 mg/dL (15-30); Sodium 140 mmol/L (135-145)
--- NOTE | 2022-04-11 21:51 | MHC.CARE ---
CARE team met with pt in the milieu of the pod to assess level of risk for harm to self or others. Pt reported that prior to arriving to the ED she had what felt like a panic attack and was overcome with auditory hallucinations telling her to harm herself. She shared that yesterday she vomited while in the car with a shelter peer and that she was having difficulty with them tonight. She reported that she is feeling better now and is not having any thoughts or urges to self harm or end her life. She reported that the voices are manageable and she feels ready to go home and go to sleep. She reported that she has group in the morning with her therapist and is planning on speaking with her therapist about having therapy appointments on Mondays while she is at her day program ([facility] in [place]). At this time there are no concerns for suicidality. ED provider was updated re: recommendation for discharge home to follow up with outpatient providers and treatment programs.
[2022-04-13 08:41] LABS: Benzodiazepines Screen Urine NOT DETECTED (Not Detect)
== END 2022-04-11 22:13 | disposition home or self-care (01) ==
PROVIDERS: Emergency Provider Emergency Medicine
DX: R44.0 Auditory hallucinations (principal); F33.9 Major depressive disorder, recurrent, unspecified; F43.10 Post-traumatic stress disorder, unspecified; F60.3 Borderline personality disorder; E11.9 Type 2 diabetes mellitus without complications; Z79.84 Long term (current) use of oral hypoglycemic drugs; Z79.899 Other long term (current) drug therapy; Z91.51 Personal history of suicidal behavior; Z91.52 Personal history of nonsuicidal self-harm; Z20.822 Contact with and (suspected) exposure to COVID-19
CPT/HCPCS: 36415; 80048; 80143; 80179; 80307; 85025; 87635; 99283; 99284

== ENCOUNTER 2022-04-14 16:37 | Emergency (ER) | payer MEDICARE, MEDICAID, SELFPAY ==
[2022-04-14 16:58] VITALS: BP 124/78; BP 139/76; PULSE 100; PULSE 85; RESP 18; TEMP 37.2; O2SAT 98; O2SAT 99; BMI 40.5
--- NOTE | 2022-04-14 17:09 | ED.PSYCH ---
HPI - Psych General Chief Complaint: Psychiatric Symptoms Stated Complaint: CRISIS, SI Time Seen by Provider: 04/14/22 17:08 Source: patient Mode of arrival: ambulatory Limitations: no limitations History of Present Illness HPI Narrative: 46-year-old female past medical history borderline personality disorder, depression, anxiety, bipolar 2 with melancholic features, PTSD, DM, GERD presents to the ED with complaints of depression in, anxiety, visual and auditory hallucinations as well as suicidal ideation. Patient tells me she was in her program today she started feeling very overwhelmed, she had to leave early and then suddenly she started feeling suicidal. Hearing voices that are telling her to kill herself. Patient tells me she has not done anything to harm herself. Denies drugs, alcohol and tobacco. Denies medical complaints. Related Data Home Medications Medication Instructions Recorded Confirmed atorvastatin 10 mg tablet 1 tab PO DAILY 05/29/21 04/11/22 fluticasone propionate 110 2 puff inhalation BID 05/29/21 04/11/22 mcg/actuation HFA aerosol inhaler (Flovent HFA) metformin 500 mg tablet 1 tab PO BID 05/29/21 04/11/22 montelukast 10 mg tablet 1 tab PO BEDTIME 05/29/21 04/11/22 verapamil 240 mg tablet,extended 240 mg PO BEDTIME 05/29/21 04/11/22 release albuterol sulfate 90 mcg/actuation 2 puff inhalation Q4H PRN 06/15/21 04/11/22 aerosol inhaler (Ventolin HFA) Shortness Of Breath trazodone 150 mg tablet 150 mg PO BEDTIME PRN insomnia 11/05/21 04/11/22 lisinopril 5 mg tablet 1 tab PO DAILY 11/14/21 04/11/22 benztropine 1 mg tablet 1 mg PO DAILY 12/26/21 04/11/22 naproxen 500 mg tablet 1 tab PO BID 01/23/22 04/11/22 fluphenazine HCl 2.5 mg tablet 1 tab PO BEDTIME 03/19/22 04/11/22 fluphenazine HCl 5 mg tablet 1 tab PO BEDTIME 03/19/22 04/11/22 Previous Rx's Medication Instructions Recorded fluoxetine 20 mg capsule 40 mg PO DAILY 30 days #60 caps 09/29/21 mirtazapine 7.5 mg tablet 7.5 mg PO BEDTIME MRX1 30 days #60 10/18/21 tabs prazosin 1 mg capsule 4 mg PO BEDTIME 30 days #120 caps 10/18/21 ondansetron 4 mg disintegrating 4 mg PO Q6-8H PRN nausea and 02/04/22 tablet vomiting #14 tabs docusate sodium 100 mg capsule 100 mg PO BID Constipation #60 caps 02/07/22 (Colace) benzonatate 200 mg capsule 200 mg PO TID PRN cough #20 caps 03/21/22 Allergies Allergy/AdvReac Type Severity Reaction Status Date / Time Fish Containing Products Allergy Severe ANAPHYLAXIS Verified 03/27/22 20:11 codeine [Codeine] Allergy Unknown RASH Verified 03/27/22 20:11 Penicillins Allergy Unknown RASH Verified 03/27/22 20:11 prednisone [Prednisone] Allergy Unknown RASH Verified 03/27/22 20:11 Sulfa (Sulfonamide Allergy Unknown RASH Verified 03/27/22 20:11 Antibiotics) [Sulfa (Sulfonamides)] azithromycin [AZITHROMYCIN] AdvReac Severe RASH Verified 03/27/22 20:11 nicotine AdvReac Unknown HEART Verified 03/27/22 20:11 PALPITATION TO NICOTINE GUM Seafood Allergy Severe ANAPHYLAXIS Uncoded 11/05/21 21:13 From Geodon Allergy Unknown DYSURIA, Uncoded 11/05/21 21:13 RASH Review of Systems Review of Systems: Constitutional : No Weight loss, No Fever, No Chills, No Fatigue, No Malaise ENT/Mouth : No sore throat, No Rhinorrhea Eyes: No Eye Pain, No Swelling, No Redness Cardiovascular : No Chest Pain, No SOB, No Dyspnea on Exertion, No Orthopnea, No Edema, No Palpitations Respiratory : No Cough, No Sputum, No Wheezing Gastrointestinal : No Nausea, No Vomiting, No Diarrhea, No Constipation, No abdominal Pain, No Hematochezia, No Melena Genitourinary : No Dysuria, No Urinary Frequency, No Hematuria, Musculoskeletal : No joint pain, No Myalgias, No Joint Swelling Skin : No Skin Lesions, No rash Neuro : No Weakness, No Numbness, No Dizziness, No Headache Psych : + Anxiety/Panic, + Depression, + suicidal ideation, No homicidal ideation Yes all other systems are reviewed and are negative PMFSH Past Medical History Attestation statement: The following information was validated with the patient. Source: old records reviewed and nursing notes reviewed Medical History Acetaminophen overdose Borderline personality disorder Bronchitis Depression Diabetes type 2, controlled GERD (gastroesophageal reflux disease) History of attempted suicide History of non-suicidal self-harm Hyperlipidemia Hypomagnesemia MDD (major depressive disorder), recurrent episode, severe Mood disorder Overdose PTSD (post-traumatic stress disorder) Suicide attempt Suicide attempt by acetaminophen overdose Social History Social History 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: None 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 Other:: Patient lives in assisted. 4 in total live in assisted. Housing: Other Housing Other:: assisted Do you presently have visiting nurse or other home services: No Unable to assess alcohol history related to: Unknown Alcohol intake: never Patient Tobacco Use Status: Current everyday Tobacco user Tobacco use type: Cigarette Cigarette Packs Per Day: 1 Cigarettes Per Day: 20 Years Smoked: 20 e-Cigarette/Vaping Use: Never Used Substance Use Type: Caffiene Advance Directives: No Advance Directives Information Provided: No service: No Current occupational status: disabled Sexual orientation: Don't Know Physical Exam Vital Signs: Vital Signs: Last Vital Signs Temp 98.9 F 04/14/22 16:58 Pulse 85 04/14/22 16:58 Resp 18 04/14/22 16:58 BP 139/76 04/14/22 16:58 Pulse Ox 98 04/14/22 16:58 O2 Del Method 04/14/22 16:58 BMI result Body Mass Index 40.5 vss Appearance: Alert.? Oriented X3.? No acute distress.? Head:? Normocephalic, atraumatic, no step-offs or deformities Eyes: Pupils equal, round and reactive to light.? ENT: Pharynx normal.? Neck: Normal inspection.? Neck supple.? CVS: Normal heart rate and rhythm.? Pulses normal.? Respiratory: No respiratory distress.? Breath sounds normal.? Abdomen: Soft and nontender.? Skin: Skin warm and dry.? Normal skin color.? Normal skin turgor.?+ old scarred self-inflicted wounds to abdomen, bilateral ventral aspects of forearms Extremities: No lower extremity edema.? No calf ttp.? 5/5 strength to bilateral upper and lower extremities Back:? No midline tenderness, no C-spine tenderness, full range of motion, no CVA tenderness bilaterally Neuro: Oriented X 3.? No motor deficit.? No sensory deficit. CN 2-12 intact? Course Reevaluation(s) Reevaluation #1: CBC appears to be around patient's baseline. Chemistry with no acute findings. Urine toxicology negative. Acetaminophen, salicylates, ethanol negative. COVID negative. Kait from care team spoke to the patient, she is feeling much better, she feels like she does had a panic attack, no longer suicidal or homicidal. I also evaluated patient, tells me she is feeling great she would like to go to her assisted she is really enjoying her day program and is looking for to it tomorrow. At this time patient will be discharged home with strict return precautions Time: 19:04 MDM - Psych MDM Narrative Medical decision making narrative: 1700 46-year-old female presents with anxiety, depression, suicidal ideation and visual and auditory hallucinations? x1 day.? Brought in via ambulance. Physical exam significant for old self inflicted wounds to arms, abdomen. Regular rate and rhythm.? Lungs clear.? Neuro exam nonfocal.? Abdomen soft nontender nondistended. Plan at this time is medical clearance and evaluation by the behavioral health team. Medical Records Attestation: I reviewed the patient's medical records. Lab Data Attestation: I reviewed the patient's lab results. Result diagrams: 04/14/22 18:49 04/14/22 18:49 Labs: Lab Results 04/14/22 04/14/22 04/14/22 Range/Units 17:17 17:47 18:49 WBC 9.2 (4.8-10.8) X10*3/uL RBC 3.82 L (4.20-5.50) X10*6/uL Hgb 11.1 L (12.0-16.0) g/dl Hct 33.4 L (37.0-47.0) % MCV 87.4 (80.0-98.0) fL MCH 29.1 (27.0-33.0) pg MCHC 33.2 (31.0-35.0) g/dl RDW 13.2 (11.0-16.0) % Plt Count 280 (160-400) X10*3/uL MPV 9.5 (9.4-12.3) fL Immature Gran % (Auto) 0.4 (0.0-0.4) % Neut % (Auto) 65.2 (45-73) % Lymph % (Auto) 23.9 (20-40) % [place] % (Auto) 7.0 (2-11) % Eos % (Auto) 3.1 (0-4) % Baso % (Auto) 0.4 (0-2) % Lymph # (Auto) 2.2 (1.2-4.9) X10*3/uL [place] # (Auto) 0.6 (0.1-1.2) X10*3/uL Eos # (Auto) 0.3 (0.0-0.4) X10*3/uL Baso # (Auto) 0.0 (0.0-0.2) X10*3/uL Abs Immat Gran (auto) 0.04 H (0.00-0.03) X10*3/uL Absolute Neuts (auto) 6.0 (2.0-8.3) x10*3/uL Absolute Nucleated RBC 0.000 (0.0-0.012) X10*3/uL Nucleated RBC % (auto) 0.0 (0.0-0.2) /100WBC Sodium (135-145) mmol/L Potassium (3.3-5.1) mmol/L Chloride (96-108) mmol/L Carbon Dioxide (22-29) mmol/L Anion Gap (12-20) BUN (9-16) mg/dL Creatinine (0.5-1.4) mg/dL Estim Creat Clear Calc Estimated GFR Random Glucose (60-115) mg/dL Calcium (8.4-10.2) mg/dL Magnesium (1.6-2.6) mg/dL Total Bilirubin (0.0-1.0) mg/dL AST (5-31) U/L ALT (0-31) U/L Alkaline Phosphatase (39-117) U/L Total Protein (6.5-8.0) g/dL Albumin (3.5-5.0) g/dL Salicylates (15-30) mg/dL Urine Opiates Screen Not Detected (Not Detect) Urine Fentanyl Screen Not Detected (Not Detect) Acetaminophen (<30) mcg/mL Ur Barbiturates Screen Not Detected (Not Detect) Ur Phencyclidine Scrn Not Detected (Not Detect) Ur Amphetamines Screen Not Detected (Not Detect) U Benzodiazepines Scrn Not Detected (Not Detect) Urine Cocaine Screen Not Detected (Not Detect) U Marijuana (THC) Screen Not Detected (Not Detect) Ethyl Alcohol mg/dL COVID-19 (NICK) Negative (Negative) COVID-19 Clin Com See Note 04/14/22 Range/Units 18:49 WBC (4.8-10.8) X10*3/uL RBC (4.20-5.50) X10*6/uL Hgb (12.0-16.0) g/dl Hct (37.0-47.0) % MCV (80.0-98.0) fL MCH (27.0-33.0) pg MCHC (31.0-35.0) g/dl RDW (11.0-16.0) % Plt Count (160-400) X10*3/uL MPV (9.4-12.3) fL Immature Gran % (Auto) (0.0-0.4) % Neut % (Auto) (45-73) % Lymph % (Auto) (20-40) % [place] % (Auto) (2-11) % Eos % (Auto) (0-4) % Baso % (Auto) (0-2) % Lymph # (Auto) (1.2-4.9) X10*3/uL [place] # (Auto) (0.1-1.2) X10*3/uL Eos # (Auto) (0.0-0.4) X10*3/uL Baso # (Auto) (0.0-0.2) X10*3/uL Abs Immat Gran (auto) (0.00-0.03) X10*3/uL Absolute Neuts (auto) (2.0-8.3) x10*3/uL Absolute Nucleated RBC (0.0-0.012) X10*3/uL Nucleated RBC % (auto) (0.0-0.2) /100WBC Sodium 138 (135-145) mmol/L Potassium 4.0 (3.3-5.1) mmol/L Chloride 105 (96-108) mmol/L Carbon Dioxide 23 (22-29) mmol/L Anion Gap 14 (12-20) BUN 10 (9-16) mg/dL Creatinine 0.78 (0.5-1.4) mg/dL Estim Creat Clear Calc 109.8 Estimated GFR > 60 Random Glucose 93 (60-115) mg/dL Calcium 9.2 (8.4-10.2) mg/dL Magnesium 1.6 (1.6-2.6) mg/dL Total Bilirubin 0.2 (0.0-1.0) mg/dL AST 15 (5-31) U/L ALT 12 (0-31) U/L Alkaline Phosphatase 98 (39-117) U/L Total Protein 6.8 (6.5-8.0) g/dL Albumin 4.3 (3.5-5.0) g/dL Salicylates < 5.0 L (15-30) mg/dL Urine Opiates Screen (Not Detect) Urine Fentanyl Screen (Not Detect) Acetaminophen < 1 (<30) mcg/mL Ur Barbiturates Screen (Not Detect) Ur Phencyclidine Scrn (Not Detect) Ur Amphetamines Screen (Not Detect) U Benzodiazepines Scrn (Not Detect) Urine Cocaine Screen (Not Detect) U Marijuana (THC) Screen (Not Detect) Ethyl Alcohol < 10 mg/dL COVID-19 (NICK) (Negative) COVID-19 Clin Com Critical Care Time Critical Care Time Critical Care Time: No Discharge Plan Discharge Clinical Impression: Acute anxiety Patient Disposition: Home, Self-Care Instructions: Panic Disorder (ED), Anxiety (ED) Additional Instructions: Take your medications as prescribed. If you were prescribed antibiotics today, it is important that you take your medication to their entirety, do not skip any doses, do not finish them early. Follow-up with your primary care provider this week. Return to the emergency department with new or worsening symptoms. Such as fevers, chills, chest pain, shortness of breath, nausea, vomiting, dizziness, headache, vision changes, lethargy In case of emergency call 911 Prescriptions: No Action metformin 500 mg tablet 1 tab PO BID atorvastatin 10 mg tablet 1 tab PO DAILY verapamil 240 mg tablet extended release 240 mg PO BEDTIME montelukast 10 mg tablet 1 tab PO BEDTIME fluticasone propionate [Flovent HFA] 110 mcg/actuation HFA aerosol inhaler 2 puff inhalation BID albuterol sulfate [Ventolin HFA] 90 mcg/actuation HFA aerosol inhaler 2 puff inhalation Q4H PRN (Reason: Shortness Of Breath) trazodone 150 mg tablet 150 mg PO BEDTIME PRN (Reason: insomnia) benztropine 1 mg tablet 1 mg PO DAILY naproxen 500 mg tablet 1 tab PO BID docusate sodium [Colace] 100 mg capsule 100 mg PO BID Qty: 60 0RF benzonatate 200 mg capsule 200 mg PO TID PRN (Reason: cough) Qty: 20 0RF fluoxetine 20 mg Capsule 40 mg PO DAILY 30 Days Qty: 60 0RF prazosin 1 mg Capsule 4 mg PO BEDTIME 30 Days Qty: 120 0RF Protocol: Hold for SBP< HOLD for SBP < : 90 mirtazapine 7.5 mg Tablet 7.5 mg PO BEDTIME MRX1 30 Days Qty: 60 0RF lisinopril 5 mg tablet 1 tab PO DAILY ondansetron 4 mg tablet,disintegrating 4 mg PO Q6-8H PRN (Reason: nausea and vomiting) Qty: 14 0RF fluphenazine HCl 2.5 mg tablet 1 tab PO BEDTIME fluphenazine HCl 5 mg tablet 1 tab PO BEDTIME [facility]errals[facility]Provider Group[facility] - 2 days Physician,Unknown J [Primary Care Provider] - 2 days
[2022-04-14 17:51] LABS: COVID-19 Test Negative (Negative)
--- NOTE | 2022-04-14 18:16 | MHC.CARE ---
CARE Team checks in with pt at pt's request. Pt states that she wants to d/c home and spend time with her favorite staff person, Angie. Pt identifies that she may have had a panic attack prior to coming to the ED. She denies any SI or SIBI at this time and identifies that she may be having increased anxiety as a result of attending a new day program. Transitions such as this have been challenging for pt in the past. Pt problem solving, identifying that she can write a letter to the staff at the day program and express how she has been feeling and ask for support in managing her anxiety. Pt also identifies that she has a favored staff person at the day program, someone who used to work on [employer] that she has been working well with. [facility], no answer. VM left to call if concerns with the [employer] commissioner of conciliation. CARE Team recommending d/c at this time.
[2022-04-14 18:31] LABS: Amphetamine Screen Urine Not Detected (Not Detect); Barbiturates, Urine Not Detected (Not Detect); Benzodiazepines Screen Urine Not Detected (Not Detect); Cannabinoid Screen Urine Not Detected (Not Detect); Cocaine Screen Urine Not Detected (Not Detect); Fentanyl, urine Not Detected (Not Detect); Opiate Screen Urine Not Detected (Not Detect); Phencyclidine Screen Urine Not Detected (Not Detect)
[2022-04-14 18:54] LABS: MANUAL DIFF FLAG NO
[2022-04-14 18:55] LABS: Basophils Percent Auto 0.4 % (0-2); Eosinophils Absolute Auto 0.3 X10*3/uL (0.0-0.4); Eosinophils Percent Auto 3.1 % (0-4); Hematocrit 33.4 % (37.0-47.0); Hemoglobin 11.1 g/dl (12.0-16.0); Imm Gran Abs Auto 0.04 X10*3/uL (0.00-0.03); Imm Gran Pct Auto 0.4 % (0.0-0.4); Lymphocytes Absolute Auto 2.2 X10*3/uL (1.2-4.9); Lymphocytes Percent Auto 23.9 % (20-40); Mean Corpuscular HGB Conc 33.2 g/dl (31.0-35.0); Mean Corpuscular Hemoglobin 29.1 pg (27.0-33.0); Mean Corpuscular Volume 87.4 fL (80.0-98.0); Mean Platelet Volume 9.5 fL (9.4-12.3); Monocytes Absolute Auto 0.6 X10*3/uL (0.1-1.2); Neutrophils Percent Auto 65.2 % (45-73); Platelet Count 280 X10*3/uL (160-400); Red Blood Count 3.82 X10*6/uL (4.20-5.50); Red Cell Distribution Width 13.2 % (11.0-16.0); White Blood Count 9.2 X10*3/uL (4.8-10.8)
[2022-04-14 19:16] LABS: Acetaminophen LAB < 1 mcg/mL (<30); Alanine Aminotransferase 12 U/L (0-31); Albumin Level 4.3 g/dL (3.5-5.0); Alkaline Phosphatase 98 U/L (39-117); Anion Gap 14 (12-20); Aspartate Amino Transferase 15 U/L (5-31); Bilirubin Total 0.2 mg/dL (0.0-1.0); Blood Urea Nitrogen 10 mg/dL (9-16); Calcium 9.2 mg/dL (8.4-10.2); Carbon Dioxide 23 mmol/L (22-29); Chloride 105 mmol/L (96-108); Creatinine Clr Calc Pharmacy 109.8; Estimated Glomerular Filt Rate > 60; Ethanol < 10 mg/dL; Glucose Random 93 mg/dL (60-115); Magnesium 1.6 mg/dL (1.6-2.6); Salicylate < 5.0 mg/dL (15-30); Sodium 138 mmol/L (135-145); Total Protein 6.8 g/dL (6.5-8.0)
[2022-04-14 20:18] LABS: Appearance Urine CLEAR; Color Urine YELLOW; Glucose Urine UA NEG (NEG); Leukocyte Esterase Urine NEG (NEG); Nitrite Urine NEG (NEG); PH 6.5 (5.0-8.0); Specific Gravity - Urine <= 1.005 (1.005-1.025); Urine Blood NEG (NEG); Urine Ketones NEG (NEG); Urine Protein NEG (NEG-TRACE)
== END 2022-04-14 20:07 | disposition home or self-care (01) ==
PROVIDERS: Physician Assistant; Emergency Provider Internal Medicine
DX: F33.1 Major depressive disorder, recurrent, moderate (principal); F41.1 Generalized anxiety disorder; F43.0 Acute stress reaction; R45.851 Suicidal ideations; F17.210 Nicotine dependence, cigarettes, uncomplicated; Z20.822 Contact with and (suspected) exposure to COVID-19; Z79.899 Other long term (current) drug therapy; Z71.6 Tobacco abuse counseling
CPT/HCPCS: 80053; 80143; 80179; 80307; 81003; 82077; 83735; 85025; 87635; 99282; 99284

== ENCOUNTER 2022-04-15 20:56 | Emergency (ER) | payer MEDICARE, MEDICAID, SELFPAY ==
--- NOTE | 2022-04-15 21:01 | ED_ITS ---
HPI - Psych General Chief Complaint: Psychiatric Symptoms Stated Complaint: CRISIS Time Seen by Provider: 04/15/22 21:01 Source: patient and EMS Mode of arrival: EMS Limitations: no limitations History of Present Illness HPI Narrative: 46-year-old female past medical history borderline personality disorder, depression, anxiety, bipolar 2 with melancholic features, PTSD, DM, GERD presents to the ED with complaints of suicidal ideation w/ plan to overdose X1 day. Patient also reports hearing and seeing males who she does not recognize and hearing her cousin talking to her and telling her to kill herself, she tells me that this is making her very nervous, anxious. Denies tactile hallucinations. Denies drugs, alcohol and tobacco. Denies medical complaints at this time. MD complaint: suicidal ideation, anxiety and hallucinations Onset (ago): day(s) (1) Duration: constant History of same: Yes Relieving factors: none Exacerbating factors: none Associated psychiatric symptoms: none Associated symptoms: denies other symptoms Treatments prior to arrival: none If self harm: admits thoughts of self harm and has plan (overdose ) Related Data Home Medications Medication Instructions Recorded Confirmed atorvastatin 10 mg tablet 1 tab PO DAILY 05/29/21 04/15/22 fluticasone propionate 110 2 puff inhalation BID 05/29/21 04/15/22 mcg/actuation HFA aerosol inhaler (Flovent HFA) metformin 500 mg tablet 1 tab PO BID 05/29/21 04/15/22 montelukast 10 mg tablet 1 tab PO BEDTIME 05/29/21 04/15/22 verapamil 240 mg tablet,extended 240 mg PO BEDTIME 05/29/21 04/15/22 release albuterol sulfate 90 mcg/actuation 2 puff inhalation Q4H PRN 06/15/21 04/15/22 aerosol inhaler (Ventolin HFA) Shortness Of Breath trazodone 150 mg tablet 150 mg PO BEDTIME PRN insomnia 11/05/21 04/15/22 lisinopril 5 mg tablet 1 tab PO DAILY 11/14/21 04/15/22 benztropine 1 mg tablet 1 mg PO DAILY 12/26/21 04/15/22 naproxen 500 mg tablet 1 tab PO BID 01/23/22 04/15/22 fluphenazine HCl 2.5 mg tablet 1 tab PO BEDTIME 03/19/22 04/15/22 fluphenazine HCl 5 mg tablet 1 tab PO BEDTIME 03/19/22 04/15/22 Previous Rx's Medication Instructions Recorded fluoxetine 20 mg capsule 40 mg PO DAILY 30 days #60 caps 09/29/21 mirtazapine 7.5 mg tablet 7.5 mg PO BEDTIME MRX1 30 days #60 10/18/21 tabs prazosin 1 mg capsule 4 mg PO BEDTIME 30 days #120 caps 10/18/21 ondansetron 4 mg disintegrating 4 mg PO Q6-8H PRN nausea and 02/04/22 tablet vomiting #14 tabs docusate sodium 100 mg capsule 100 mg PO BID Constipation #60 caps 02/07/22 (Colace) benzonatate 200 mg capsule 200 mg PO TID PRN cough #20 caps 03/21/22 Allergies Allergy/AdvReac Type Severity Reaction Status Date / Time Fish Containing Products Allergy Severe ANAPHYLAXIS Verified 03/27/22 20:11 codeine [Codeine] Allergy Unknown RASH Verified 03/27/22 20:11 Penicillins Allergy Unknown RASH Verified 03/27/22 20:11 prednisone [Prednisone] Allergy Unknown RASH Verified 03/27/22 20:11 Sulfa (Sulfonamide Allergy Unknown RASH Verified 03/27/22 20:11 Antibiotics) [Sulfa (Sulfonamides)] azithromycin [AZITHROMYCIN] AdvReac Severe RASH Verified 03/27/22 20:11 nicotine AdvReac Unknown HEART Verified 03/27/22 20:11 PALPITATION TO NICOTINE GUM Seafood Allergy Severe ANAPHYLAXIS Uncoded 11/05/21 21:13 From Geodon Allergy Unknown DYSURIA, Uncoded 11/05/21 21:13 RASH Review of Systems Review of Systems: Constitutional : No Weight loss, No Fever, No Chills, No Fatigue, No Malaise ENT/Mouth : No sore throat, No Rhinorrhea Eyes: No Eye Pain, No Swelling, No Redness Cardiovascular : No Chest Pain, No SOB, No Dyspnea on Exertion, No Orthopnea, No Edema, No Palpitations Respiratory : No Cough, No Sputum, No Wheezing Gastrointestinal : No Nausea, No Vomiting, No Diarrhea, No Constipation, No abdominal Pain, No Hematochezia, No Melena Genitourinary : No Dysuria, No Urinary Frequency, No Hematuria, Musculoskeletal : No joint pain, No Myalgias, No Joint Swelling Skin : No Skin Lesions, No rash Neuro : No Weakness, No Numbness, No Dizziness, No Headache Psych : + Anxiety/Panic, No Depression, + SI, +VH/AH All other systems reviewed and are negative Yes all other systems are reviewed and are negative [facility] Past Medical History Attestation statement: The following information was validated with the patient. Source: old records reviewed and nursing notes reviewed Medical History Acetaminophen overdose Borderline personality disorder Bronchitis Depression Diabetes type 2, controlled GERD (gastroesophageal reflux disease) History of attempted suicide History of non-suicidal self-harm Hyperlipidemia Hypomagnesemia MDD (major depressive disorder), recurrent episode, severe Mood disorder Overdose PTSD (post-traumatic stress disorder) Suicide attempt Suicide attempt by acetaminophen overdose Social History Social History 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: None 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 Other:: [facility] in [facility]. Housing: Other Housing Other:: [facility] Do you presently have visiting nurse or other home services: No Unable to assess alcohol history related to: Unknown Alcohol intake: never Patient Tobacco Use Status: Current everyday Tobacco user Tobacco use type: Cigarette Cigarette Packs Per Day: 1 Cigarettes Per Day: 20 Years Smoked: 20 e-Cigarette/Vaping Use: Never Used Substance Use Type: Caffiene Advance Directives: No Advance Directives Information Provided: No service: No Current occupational status: disabled Sexual orientation: Don't Know Physical Exam Vital Signs: Vital Signs: Last Vital Signs Temp 97.6 F 04/15/22 21: Pulse 78 04/15/22 21:22 Resp 16 04/15/22 21:22 BP 148/88 H 04/15/22 21:22 Pulse Ox 96 04/15/22 21:22 O2 Del Method 04/15/22 21:22 BMI result Body Mass Index 39.9 VSS Appearance: Alert.? Oriented X3.? No acute distress.? Head: Normocephalic, atraumatic, no step-offs or deformities Eyes: Pupils equal, round and reactive to light.? ENT: Pharynx normal.? Neck: Normal inspection.? Neck supple.? CVS: Normal heart rate and rhythm.? Pulses normal.? Respiratory: No respiratory distress.? Breath sounds normal.? Abdomen: Soft and nontender.? Skin: Skin warm and dry.? Normal skin color.? Normal skin turgor.?+old scarred self-inflicted wounds to abdomen, bilateral ventral aspects of forearms Extremities: No lower extremity edema.? No calf ttp. 5/5 strength to bilateral upper and lower extremities Neuro: Oriented X 3.? No motor deficit.? No sensory deficit. CN 2-12 intact Course Reevaluation(s) Reevaluation #1: Urine without infection. Salicylates, acetaminophen and ethanol negative. Urine toxicology positive for fentanyl however likely secondary to psychiatric medications. At this time patient will be placed in physician observation to allow more time to be evaluated by the behavioral health team. At time observation was started patient com cooperative in no acute distress. Will continue to monitor. Time: 00:15 MDM - Psych MDM Narrative Medical decision making narrative: [age] yo f presents w/ anxiety/panic, AH/VH and SI w/ plan to OD X1 day PE benign Plan- medical clearance and evaluation by behavioral health team. Medical Records Attestation: I reviewed the patient's medical records. Lab Data Attestation: I reviewed the patient's lab results. Labs: Lab Results 04/15/22 04/15/22 04/15/22 Range/Units 21:33 21:33 21:33 Urine Color Urine Appearance Urine pH (5.0-8.0) Ur Specific [place] (1.005-1.025) Urine Protein (NEG-TRACE) MG/DL Urine Glucose (UA) (NEG) MG/DL Urine Ketones (NEG) MG/DL Urine Blood (NEG) Urine Nitrite (NEG) Ur Leukocyte Esterase (NEG) Urine RBC (0) /HPF Urine WBC (0-4) /HPF Ur Squamous Epith Cells /LPF Urine Bacteria /LPF Salicylates < 5.0 L (15-30) mg/dL Urine Opiates Screen (Not Detect) Urine Fentanyl Screen (Not Detect) Acetaminophen < 1 (<30) mcg/mL Ur Barbiturates Screen (Not Detect) Ur Phencyclidine Scrn (Not Detect) Ur Amphetamines Screen (Not Detect) U Benzodiazepines Scrn (Not Detect) Urine Cocaine Screen (Not Detect) U Marijuana (THC) Screen (Not Detect) Ethyl Alcohol < 10 Cancelled mg/dL COVID-19 (NICK) Negative (Negative) COVID-19 Clin Com See Note 04/15/22 04/15/22 Range/Units 22:10 22:10 Urine Color YELLOW Urine Appearance CLEAR Urine pH 7.0 (5.0-8.0) Ur Specific [place] 1.010 (1.005-1.025) Urine Protein NEG (NEG-TRACE) MG/DL Urine Glucose (UA) NEG (NEG) MG/DL Urine Ketones NEG (NEG) MG/DL Urine Blood TRACE (NEG) Urine Nitrite NEG (NEG) Ur Leukocyte Esterase TRACE H (NEG) Urine RBC 1-4 (0) /HPF Urine WBC 1-4 (0-4) /HPF Ur Squamous Epith Cells 1+ /LPF Urine Bacteria 2+ /LPF Salicylates (15-30) mg/dL Urine Opiates Screen Not Detected (Not Detect) Urine Fentanyl Screen POSITIVE H (Not Detect) Acetaminophen (<30) mcg/mL Ur Barbiturates Screen Not Detected (Not Detect) Ur Phencyclidine Scrn Not Detected (Not Detect) Ur Amphetamines Screen Not Detected (Not Detect) U Benzodiazepines Scrn Not Detected (Not Detect) Urine Cocaine Screen Not Detected (Not Detect) U Marijuana (THC) Screen Not Detected (Not Detect) Ethyl Alcohol mg/dL COVID-19 (NICK) (Negative) COVID-19 Clin Com Critical Care Time Critical Care Time Critical Care Time: No Discharge Plan Discharge Clinical Impression: Anxiety, Suicidal ideation, Hallucinations Patient Disposition: Still a Patient Prescriptions: No Action metformin 500 mg tablet 1 tab PO BID atorvastatin 10 mg tablet 1 tab PO DAILY verapamil 240 mg tablet extended release 240 mg PO BEDTIME montelukast 10 mg tablet 1 tab PO BEDTIME fluticasone propionate [Flovent HFA] 110 mcg/actuation HFA aerosol inhaler 2 puff inhalation BID albuterol sulfate [Ventolin HFA] 90 mcg/actuation HFA aerosol inhaler 2 puff inhalation Q4H PRN (Reason: Shortness Of Breath) trazodone 150 mg tablet 150 mg PO BEDTIME PRN (Reason: insomnia) benztropine 1 mg tablet 1 mg PO DAILY naproxen 500 mg tablet 1 tab PO BID docusate sodium [Colace] 100 mg capsule 100 mg PO BID Qty: 60 0RF benzonatate 200 mg capsule 200 mg PO TID PRN (Reason: cough) Qty: 20 0RF fluoxetine 20 mg Capsule 40 mg PO DAILY 30 Days Qty: 60 0RF prazosin 1 mg Capsule 4 mg PO BEDTIME 30 Days Qty: 120 0RF Protocol: Hold for SBP< HOLD for SBP < : 90 mirtazapine 7.5 mg Tablet 7.5 mg PO BEDTIME MRX1 30 Days Qty: 60 0RF lisinopril 5 mg tablet 1 tab PO DAILY ondansetron 4 mg tablet,disintegrating 4 mg PO Q6-8H PRN (Reason: nausea and vomiting) Qty: 14 0RF fluphenazine HCl 2.5 mg tablet 1 tab PO BEDTIME fluphenazine HCl 5 mg tablet 1 tab PO BEDTIME
[2022-04-15 21:04] VITALS: BMI 39.9
[2022-04-15 21:22] VITALS: BP 148/88; PULSE 78; RESP 16; TEMP 36.4; O2SAT 96
[2022-04-15] MEDS: Nicotine 7 MG PATCH.TD24 TRANSDERMA (21:59)
[2022-04-15 22:00] LABS: COVID-19 Test Negative (Negative)
[2022-04-15 22:02] LABS: Acetaminophen LAB < 1 mcg/mL (<30); Ethanol < 10 mg/dL; Salicylate < 5.0 mg/dL (15-30)
[2022-04-15 22:46] LABS: Appearance Urine CLEAR; Color Urine YELLOW; Glucose Urine UA NEG (NEG); Leukocyte Esterase Urine TRACE (NEG); Nitrite Urine NEG (NEG); UACC Culture Trigger NO; Urine Blood TRACE (NEG); Urine Ketones NEG (NEG); Urine Protein NEG (NEG-TRACE)
[2022-04-15 23:14] LABS: Amphetamine Screen Urine Not Detected (Not Detect); Barbiturates, Urine Not Detected (Not Detect); Benzodiazepines Screen Urine Not Detected (Not Detect); Cannabinoid Screen Urine Not Detected (Not Detect); Cocaine Screen Urine Not Detected (Not Detect); Fentanyl, urine POSITIVE (Not Detect); Opiate Screen Urine Not Detected (Not Detect); Phencyclidine Screen Urine Not Detected (Not Detect)
[2022-04-15 23:17] LABS: Bacteria Urine 2+ /LPF; Squamous Epithelial Cell Urine 1+ /LPF
[2022-04-16 00:40] VITALS: BP 140/57; PULSE 70; RESP 17; TEMP 36.8; O2SAT 96
--- NOTE | 2022-04-16 07:01 | PC.NURSE ---
Patient slept through the night, no distress observed/reported, medication reconciliation completed/mar updated, BHN referral completed/confirmed/pending ETA, behavior appropriate, VSS, will continue to monitor.
--- NOTE | 2022-04-16 07:23 | PC.NURSE ---
patient appears to remain asleep at present respirations are even and unlabored patient appears in no distress
[2022-04-16] MEDS: Atorvastatin Calcium 10 MG TABLET PO (08:17)
[2022-04-16] MEDS: FLUoxetine HCl 20 MG CAPSULE 40 MG PO (08:17)
[2022-04-16] MEDS: Docusate Sodium 100 MG CAPSULE PO (08:17)
[2022-04-16] MEDS: metFORMIN HCl 500 MG TABLET PO (08:18)
[2022-04-16] MEDS: NaPROXEN 500 MG TABLET PO (08:18)
[2022-04-16] MEDS: lisinopriL 5 MG TABLET PO (08:18)
[2022-04-16] MEDS: Benztropine Mesylate 1 MG TABLET PO (08:18)
--- NOTE | 2022-04-16 13:39 | MHC.CARE ---
Late Entry: CARE Team met with Pt who is requesting to be discharged home after having a gumaro sleep. Pt denies current SI/HI. At baseline, Pt will experience AH and suicdiality. Pt reports she had a difficult evening yesterday with her peer and wanted to come to the ED. Pt and CARE TEam dicussed next steps when returning home and to practice coping skills. Pt asked for a CARE Team follow up call. CARE Team notified provider.
== END 2022-04-16 10:41 | disposition home or self-care (01) ==
PROVIDERS: Physician Assistant; Emergency Provider Emergency Medicine
DX: F41.9 Anxiety disorder, unspecified (principal); R45.851 Suicidal ideations; R44.0 Auditory hallucinations; R44.1 Visual hallucinations; Z20.822 Contact with and (suspected) exposure to COVID-19; F60.3 Borderline personality disorder; F31.9 Bipolar disorder, unspecified; F43.10 Post-traumatic stress disorder, unspecified; E11.9 Type 2 diabetes mellitus without complications; E78.5 Hyperlipidemia, unspecified; F17.200 Nicotine dependence, unspecified, uncomplicated; Z79.02 Long term (current) use of antithrombotics/antiplatelets; Z91.51 Personal history of suicidal behavior; Z79.899 Other long term (current) drug therapy
CPT/HCPCS: 36415; 80143; 80179; 80307; 81001; 82077; 87635; 99284; 99285

== ENCOUNTER 2022-04-17 19:32 | Emergency (ER) | payer MEDICARE, MEDICAID, SELFPAY ==
--- NOTE | 2022-04-17 19:33 | ED_ITS ---
HPI - Psych General Chief Complaint: Psychiatric Symptoms Stated Complaint: crisis Source: patient and EMS Mode of arrival: EMS Limitations: no limitations History of Present Illness HPI Narrative: 46-year-old female presents via EMS for auditory hallucinations and suicidal ideation. MD complaint: suicidal ideation and feels depressed Onset (ago): year(s) Duration: constant History of same: Yes Relieving factors: none Exacerbating factors: none Associated psychiatric symptoms: depression, suicidal ideation, racing thoughts, auditory hallucinations and visual hallucinations Associated symptoms: denies other symptoms Treatments prior to arrival: none If self harm: admits thoughts of self harm and has acted on plan Related Data Home Medications Medication Instructions Recorded Confirmed atorvastatin 10 mg tablet 1 tab PO DAILY 05/29/21 04/17/22 fluticasone propionate 110 2 puff inhalation BID 05/29/21 04/17/22 mcg/actuation HFA aerosol inhaler (Flovent HFA) metformin 500 mg tablet 1 tab PO BID 05/29/21 04/17/22 montelukast 10 mg tablet 1 tab PO BEDTIME 05/29/21 04/17/22 verapamil 240 mg tablet,extended 240 mg PO BEDTIME 05/29/21 04/17/22 release albuterol sulfate 90 mcg/actuation 2 puff inhalation Q4H PRN 06/15/21 04/17/22 aerosol inhaler (Ventolin HFA) Shortness Of Breath trazodone 150 mg tablet 150 mg PO BEDTIME PRN insomnia 11/05/21 04/17/22 lisinopril 5 mg tablet 1 tab PO DAILY 11/14/21 04/17/22 benztropine 1 mg tablet 1 mg PO DAILY 12/26/21 04/17/22 naproxen 500 mg tablet 1 tab PO BID 01/23/22 04/17/22 fluphenazine HCl 2.5 mg tablet 1 tab PO BEDTIME 03/19/22 04/17/22 fluphenazine HCl 5 mg tablet 1 tab PO BEDTIME 03/19/22 04/17/22 Previous Rx's Medication Instructions Recorded fluoxetine 20 mg capsule 40 mg PO DAILY 30 days #60 caps 09/29/21 mirtazapine 7.5 mg tablet 7.5 mg PO BEDTIME MRX1 30 days #60 10/18/21 tabs prazosin 1 mg capsule 4 mg PO BEDTIME 30 days #120 caps 10/18/21 ondansetron 4 mg disintegrating 4 mg PO Q6-8H PRN nausea and 02/04/22 tablet vomiting #14 tabs docusate sodium 100 mg capsule 100 mg PO BID Constipation #60 caps 02/07/22 (Colace) benzonatate 200 mg capsule 200 mg PO TID PRN cough #20 caps 03/21/22 Allergies Allergy/AdvReac Type Severity Reaction Status Date / Time Fish Containing Products Allergy Severe ANAPHYLAXIS Verified 03/27/22 20:11 codeine [Codeine] Allergy Unknown RASH Verified 03/27/22 20:11 Penicillins Allergy Unknown RASH Verified 03/27/22 20:11 prednisone [Prednisone] Allergy Unknown RASH Verified 03/27/22 20:11 Sulfa (Sulfonamide Allergy Unknown RASH Verified 03/27/22 20:11 Antibiotics) [Sulfa (Sulfonamides)] azithromycin [AZITHROMYCIN] AdvReac Severe RASH Verified 03/27/22 20:11 nicotine AdvReac Unknown HEART Verified 03/27/22 20:11 PALPITATION TO NICOTINE GUM Seafood Allergy Severe ANAPHYLAXIS Uncoded 11/05/21 21:13 From Geodon Allergy Unknown DYSURIA, Uncoded 11/05/21 21:13 RASH Review of Systems Review of Systems: Constitutional: No Fever, No Chills ENT/Mouth: No sore throat, No Rhinorrhea Eyes: No Eye Pain, No Swelling, No Redness Cardiovascular: No Chest Pain, No SOB Respiratory: No Cough, No Sputum Gastrointestinal: No Nausea, No Vomiting, No Diarrhea, No abdominal Pain Genitourinary: No Dysuria, No Hematuria Musculoskeletal: No joint pain, No Myalgias, No Joint Swelling Skin: No Skin Lesions, No rash Neuro: No Weakness, No Numbness, No Loss of Consciousness, No Dizziness, No Headache Psych: Positive Anxiety, positive Depression, positive SI no HI positive AH no VH Heme/Lymph: No Bruising, No Bleeding,No Lymphadenopathy Endocrine: No Polyuria, No Polydipsia Yes all other systems are reviewed and are negative [facility] Past Medical History Attestation statement: The following information was validated with the patient. Source: old records reviewed Medical History Acetaminophen overdose Borderline personality disorder Bronchitis Depression Diabetes type 2, controlled GERD (gastroesophageal reflux disease) History of attempted suicide History of non-suicidal self-harm Hyperlipidemia Hypomagnesemia MDD (major depressive disorder), recurrent episode, severe Mood disorder Overdose PTSD (post-traumatic stress disorder) Suicide attempt Suicide attempt by acetaminophen overdose Social History Social History 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: None 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 Other:: [facility] lives in [facility]. 4 in total live in [facility]. Housing: Other Housing Other:: [facility] Do you presently have visiting nurse or other home services: No Unable to assess alcohol history related to: Unknown Alcohol intake: never Patient Tobacco Use Status: Current everyday Tobacco user Tobacco use type: Cigarette Cigarette Packs Per Day: 1 Cigarettes Per Day: 20 Years Smoked: 20 e-Cigarette/Vaping Use: Never Used Substance Use Type: Caffiene Advance Directives: No Advance Directives Information Provided: No service: No Current occupational status: disabled Sexual orientation: Don't Know Physical Exam Vital Signs: Vital Signs: Last Vital Signs Temp 98.2 F 04/17/22 19:40 Pulse 80 04/17/22 19:40 Resp 18 04/17/22 19:40 BP 136/87 04/17/22 19:40 Pulse Ox 99 04/17/22 19:40 O2 Del Method 04/17/22 19:40 BMI result Body Mass Index 40.3 Appearance: Alert. Oriented X3. Moderate emotional distress. Eyes: Pupils equal, round and reactive to light. ENT: Pharynx normal. Neck: Normal inspection. Neck supple. CVS: Normal heart rate and rhythm. Pulses normal. Respiratory: No respiratory distress. Breath sounds normal. Abdomen: Soft and nontender. Skin: Skin warm and dry. Normal skin color. Normal skin turgor. Extremities: No lower extremity edema. Gait well-balanced well coordinated. Neuro: No motor deficit. No sensory deficit. Cranial nerves 2-12 intact. Course Course Course Narrative: 46-year-old female presents via EMS for suicidal ideation and anxiety. Will order labs and Care team consult. Medically cleared, care team consult completed. Plan is to discharge to [facility] facility. Patient verbalized understanding of and agrees to plan of care discharge home. MDM - Psych Differential Diagnosis Differential diagnosis: Likely acute psychosis, suicidal ideation, depression, acute anxiety and mood disorder Medical Records Attestation: I reviewed the patient's medical records. Lab Data Attestation: I reviewed the patient's lab results. Result diagrams: 04/17/22 20:22 04/17/22 20:22 Labs: Lab Results 04/17/22 04/17/22 04/17/22 Range/Units 20:22 20:22 20:22 WBC 9.4 (4.8-10.8) X10*3/uL RBC 3.81 L (4.20-5.50) X10*6/uL Hgb 11.1 L (12.0-16.0) g/dl Hct 34.2 L (37.0-47.0) % MCV 89.8 (80.0-98.0) fL MCH 29.1 (27.0-33.0) pg MCHC 32.5 (31.0-35.0) g/dl RDW 13.1 (11.0-16.0) % Plt Count 264 (160-400) X10*3/uL MPV 9.6 (9.4-12.3) fL Immature Gran % (Auto) 0.4 (0.0-0.4) % Neut % (Auto) 66.5 (45-73) % Lymph % (Auto) 23.3 (20-40) % [place] % (Auto) 6.7 (2-11) % Eos % (Auto) 2.8 (0-4) % Baso % (Auto) 0.3 (0-2) % Lymph # (Auto) 2.2 (1.2-4.9) X10*3/uL [place] # (Auto) 0.6 (0.1-1.2) X10*3/uL Eos # (Auto) 0.3 (0.0-0.4) X10*3/uL Baso # (Auto) 0.0 (0.0-0.2) X10*3/uL Abs Immat Gran (auto) 0.04 H (0.00-0.03) X10*3/uL Absolute Neuts (auto) 6.2 (2.0-8.3) x10*3/uL Absolute Nucleated RBC 0.000 (0.0-0.012) X10*3/uL Nucleated RBC % (auto) 0.0 (0.0-0.2) /100WBC Sodium 136 (135-145) mmol/L Potassium 3.7 (3.3-5.1) mmol/L Chloride 103 (96-108) mmol/L Carbon Dioxide 24 (22-29) mmol/L Anion Gap 13 (12-20) BUN 9 (9-16) mg/dL Creatinine 0.83 (0.5-1.4) mg/dL Estim Creat Clear Calc 106.7 Estimated GFR > 60 Random Glucose 120 H (60-115) mg/dL Calcium 8.6 D (8.4-10.2) mg/dL Total Bilirubin 0.3 (0.0-1.0) mg/dL AST 13 (5-31) U/L ALT 13 (0-31) U/L Alkaline Phosphatase 90 (39-117) U/L Total Protein 6.6 (6.5-8.0) g/dL Albumin 4.3 (3.5-5.0) g/dL Salicylates < 5.0 L (15-30) mg/dL Urine Opiates Screen Not Detected (Not Detect) Urine Fentanyl Screen Not Detected (Not Detect) Acetaminophen < 1 (<30) mcg/mL Ur Barbiturates Screen Not Detected (Not Detect) Ur Phencyclidine Scrn Not Detected (Not Detect) Ur Amphetamines Screen Not Detected (Not Detect) U Benzodiazepines Scrn Not Detected (Not Detect) Urine Cocaine Screen Not Detected (Not Detect) U Marijuana (THC) Screen Not Detected (Not Detect) Ethyl Alcohol mg/dL COVID-19 (NICK) (Negative) COVID-19 Clin Com 04/17/22 04/17/22 Range/Units 20:22 21:18 WBC (4.8-10.8) X10*3/uL RBC (4.20-5.50) X10*6/uL Hgb (12.0-16.0) g/dl Hct (37.0-47.0) % MCV (80.0-98.0) fL MCH (27.0-33.0) pg MCHC (31.0-35.0) g/dl RDW (11.0-16.0) % Plt Count (160-400) X10*3/uL MPV (9.4-12.3) fL Immature Gran % (Auto) (0.0-0.4) % Neut % (Auto) (45-73) % Lymph % (Auto) (20-40) % [place] % (Auto) (2-11) % Eos % (Auto) (0-4) % Baso % (Auto) (0-2) % Lymph # (Auto) (1.2-4.9) X10*3/uL [place] # (Auto) (0.1-1.2) X10*3/uL Eos # (Auto) (0.0-0.4) X10*3/uL Baso # (Auto) (0.0-0.2) X10*3/uL Abs Immat Gran (auto) (0.00-0.03) X10*3/uL Absolute Neuts (auto) (2.0-8.3) x10*3/uL Absolute Nucleated RBC (0.0-0.012) X10*3/uL Nucleated RBC % (auto) (0.0-0.2) /100WBC Sodium (135-145) mmol/L Potassium (3.3-5.1) mmol/L Chloride (96-108) mmol/L Carbon Dioxide (22-29) mmol/L Anion Gap (12-20) BUN (9-16) mg/dL Creatinine (0.5-1.4) mg/dL Estim Creat Clear Calc Estimated GFR Random Glucose (60-115) mg/dL Calcium (8.4-10.2) mg/dL Total Bilirubin (0.0-1.0) mg/dL AST (5-31) U/L ALT (0-31) U/L Alkaline Phosphatase (39-117) U/L Total Protein (6.5-8.0) g/dL Albumin (3.5-5.0) g/dL Salicylates (15-30) mg/dL Urine Opiates Screen (Not Detect) Urine Fentanyl Screen (Not Detect) Acetaminophen (<30) mcg/mL Ur Barbiturates Screen (Not Detect) Ur Phencyclidine Scrn (Not Detect) Ur Amphetamines Screen (Not Detect) U Benzodiazepines Scrn (Not Detect) Urine Cocaine Screen (Not Detect) U Marijuana (THC) Screen (Not Detect) Ethyl Alcohol < 10 mg/dL COVID-19 (NICK) Negative (Negative) COVID-19 Clin Com See Note Discharge Plan Discharge Clinical Impression: Suicidal ideation, Depression Patient Disposition: Home, Self-Care Instructions: Depression (ED), Suicide Prevention (ED) Additional Instructions: Follow-up with outpatient psychiatry as scheduled. Thank you for choosing this emergency department for evaluation. Please follow-up with primary care physician as needed. Return to the emergency department for any new, concerning, or worsening symptoms. Prescriptions: No Action metformin 500 mg tablet 1 tab PO BID atorvastatin 10 mg tablet 1 tab PO DAILY verapamil 240 mg tablet extended release 240 mg PO BEDTIME montelukast 10 mg tablet 1 tab PO BEDTIME fluticasone propionate [Flovent HFA] 110 mcg/actuation HFA aerosol inhaler 2 puff inhalation BID albuterol sulfate [Ventolin HFA] 90 mcg/actuation HFA aerosol inhaler 2 puff inhalation Q4H PRN (Reason: Shortness Of Breath) trazodone 150 mg tablet 150 mg PO BEDTIME PRN (Reason: insomnia) benztropine 1 mg tablet 1 mg PO DAILY naproxen 500 mg tablet 1 tab PO BID docusate sodium [Colace] 100 mg capsule 100 mg PO BID Qty: 60 0RF benzonatate 200 mg capsule 200 mg PO TID PRN (Reason: cough) Qty: 20 0RF fluoxetine 20 mg Capsule 40 mg PO DAILY 30 Days Qty: 60 0RF prazosin 1 mg Capsule 4 mg PO BEDTIME 30 Days Qty: 120 0RF Protocol: Hold for SBP< HOLD for SBP < : 90 mirtazapine 7.5 mg Tablet 7.5 mg PO BEDTIME MRX1 30 Days Qty: 60 0RF lisinopril 5 mg tablet 1 tab PO DAILY ondansetron 4 mg tablet,disintegrating 4 mg PO Q6-8H PRN (Reason: nausea and vomiting) Qty: 14 0RF fluphenazine HCl 2.5 mg tablet 1 tab PO BEDTIME fluphenazine HCl 5 mg tablet 1 tab PO BEDTIME
[2022-04-17 19:37] VITALS: BP 118/80; PULSE 95; O2SAT 96
[2022-04-17 19:40] VITALS: BP 136/87; PULSE 80; RESP 18; TEMP 36.8; O2SAT 99; BMI 40.3
[2022-04-17 20:30] LABS: MANUAL DIFF FLAG NO
[2022-04-17 20:31] LABS: Basophils Percent Auto 0.3 % (0-2); Eosinophils Absolute Auto 0.3 X10*3/uL (0.0-0.4); Eosinophils Percent Auto 2.8 % (0-4); Hematocrit 34.2 % (37.0-47.0); Hemoglobin 11.1 g/dl (12.0-16.0); Imm Gran Abs Auto 0.04 X10*3/uL (0.00-0.03); Imm Gran Pct Auto 0.4 % (0.0-0.4); Lymphocytes Absolute Auto 2.2 X10*3/uL (1.2-4.9); Lymphocytes Percent Auto 23.3 % (20-40); Mean Corpuscular HGB Conc 32.5 g/dl (31.0-35.0); Mean Corpuscular Hemoglobin 29.1 pg (27.0-33.0); Mean Corpuscular Volume 89.8 fL (80.0-98.0); Mean Platelet Volume 9.6 fL (9.4-12.3); Monocytes Absolute Auto 0.6 X10*3/uL (0.1-1.2); Monocytes Percent Auto 6.7 % (2-11); Neutrophils Absolute Auto 6.2 x10*3/uL (2.0-8.3); Neutrophils Percent Auto 66.5 % (45-73); Platelet Count 264 X10*3/uL (160-400); Red Blood Count 3.81 X10*6/uL (4.20-5.50); Red Cell Distribution Width 13.1 % (11.0-16.0); White Blood Count 9.4 X10*3/uL (4.8-10.8)
[2022-04-17 20:45] LABS: Ethanol < 10 mg/dL
--- NOTE | 2022-04-17 20:45 | PC.NURSE ---
pt coming from home, hx SI w attempt, pt reports auditory hallucinations telling her to OD on medication. endorses SI w a plan. pt changed, belongings secured in the POD. lab samples obtained. medicated per provider order - pt requesting medication for increased anxiety.
[2022-04-17] MEDS: LORazepam 1 MG TABLET PO (20:47)
[2022-04-17 20:48] LABS: Acetaminophen LAB < 1 mcg/mL (<30); Alanine Aminotransferase 13 U/L (0-31); Albumin Level 4.3 g/dL (3.5-5.0); Alkaline Phosphatase 90 U/L (39-117); Amphetamine Screen Urine Not Detected (Not Detect); Anion Gap 13 (12-20); Aspartate Amino Transferase 13 U/L (5-31); Barbiturates, Urine Not Detected (Not Detect); Benzodiazepines Screen Urine Not Detected (Not Detect); Bilirubin Total 0.3 mg/dL (0.0-1.0); Blood Urea Nitrogen 9 mg/dL (9-16); Calcium 8.6 mg/dL (8.4-10.2); Cannabinoid Screen Urine Not Detected (Not Detect); Carbon Dioxide 24 mmol/L (22-29); Chloride 103 mmol/L (96-108); Cocaine Screen Urine Not Detected (Not Detect); Creatinine Clr Calc Pharmacy 106.7; Estimated Glomerular Filt Rate > 60; Fentanyl, urine Not Detected (Not Detect); Glucose Random 120 mg/dL (60-115); Opiate Screen Urine Not Detected (Not Detect); Phencyclidine Screen Urine Not Detected (Not Detect); Potassium 3.7 mmol/L (3.3-5.1); Salicylate < 5.0 mg/dL (15-30); Sodium 136 mmol/L (135-145); Total Protein 6.6 g/dL (6.5-8.0)
[2022-04-17 22:12] LABS: COVID-19 Test Negative (Negative)
--- NOTE | 2022-04-17 22:48 | MHC.CARE ---
CARE team met with pt to assess potential level of risk for harm to self or others. Pt is well known to this ad writer and this facility from previous visits with similar presentation. [facility] endorsing suicidal ideation with plan to overdose, urge to self harm, and experiencing command auditory hallucinations. Shortly after arriving to the hospital the pt reported a reduction in her symptoms, stating that she no longer wants to hurt herself, though the suicidal ideations still remain, but she feels that she is able to keep herself safe and regulate her reaction to the voices that she hears. [place] noting is that the pt has no structured activities, meetings, or appointments on Tuesdays. She attends her day program on Mondays, , and Fridays. She sees her therapist for group therapy on Wednesdays and has therapy on Mondays. CARE team will follow up with the pt late morning on Sunday to check in re: how she is doing, what her plan is for the rest of the day, etc. Recommendation is for pt to return to [facility] this evening, transportation will be arrange via lyft.
== END 2022-04-17 22:45 | disposition home or self-care (01) ==
PROVIDERS: Nurse Practitioner Family; Emergency Provider Emergency Medicine; PCP Nurse Practitioner Family
DX: R45.851 Suicidal ideations (principal); F32.A Depression, unspecified; R44.0 Auditory hallucinations; Z20.822 Contact with and (suspected) exposure to COVID-19; F41.9 Anxiety disorder, unspecified; F43.10 Post-traumatic stress disorder, unspecified; F60.3 Borderline personality disorder; E11.9 Type 2 diabetes mellitus without complications; E78.5 Hyperlipidemia, unspecified; F17.200 Nicotine dependence, unspecified, uncomplicated; Z91.51 Personal history of suicidal behavior; Z79.02 Long term (current) use of antithrombotics/antiplatelets; Z79.899 Other long term (current) drug therapy
CPT/HCPCS: 36415; 80053; 80143; 80179; 80307; 82077; 85025; 87635; 99284

== ENCOUNTER 2022-04-20 16:33 | Emergency (ER) | payer MEDICARE, MEDICAID, SELFPAY ==
[2022-04-20 16:42] VITALS: BP 142/105; BP 148/90; PULSE 100; PULSE 99; RESP 18; TEMP 36.4; O2SAT 95; O2SAT 97; BMI 35.2
--- NOTE | 2022-04-20 16:57 | ED_ITS ---
HPI - Psych General Chief Complaint: Psychiatric Symptoms Stated Complaint: Crisis CARISSA yu Time Seen by Provider: 04/20/22 16:56 Source: patient Mode of arrival: EMS Limitations: no limitations History of Present Illness HPI Narrative: 46-year-old female with past medical history of borderline personality disorder, depression, anxiety, bipolar 2 with melancholic features, PTSD, DM, GERD presents today with suicidal ideations. She states there or voices in her head telling her to kill herself that she is thinking about hurting herself with the that she , along with visual hallucinations of her cousin. she reports no tobacco hallucinations, using no drugs or alcohol today. she reports that she feels unsafe going home and would like to stay hospitalized worried for safety. She reports no headache, nausea, vomiting, palpitations, chest pain, shortness breath, fevers,chills. Denies medical complaints. MD complaint: suicidal ideation and feels depressed Related Data Home Medications Medication Instructions Recorded Confirmed atorvastatin 10 mg tablet 1 tab PO DAILY 05/29/21 04/17/22 fluticasone propionate 110 2 puff inhalation BID 05/29/21 04/17/22 mcg/actuation HFA aerosol inhaler (Flovent HFA) metformin 500 mg tablet 1 tab PO BID 05/29/21 04/17/22 montelukast 10 mg tablet 1 tab PO BEDTIME 05/29/21 04/17/22 verapamil 240 mg tablet,extended 240 mg PO BEDTIME 05/29/21 04/17/22 release albuterol sulfate 90 mcg/actuation 2 puff inhalation Q4H PRN 06/15/21 04/17/22 aerosol inhaler (Ventolin HFA) Shortness Of Breath trazodone 150 mg tablet 150 mg PO BEDTIME PRN insomnia 11/05/21 04/17/22 lisinopril 5 mg tablet 1 tab PO DAILY 11/14/21 04/17/22 benztropine 1 mg tablet 1 mg PO DAILY 12/26/21 04/17/22 naproxen 500 mg tablet 1 tab PO BID 01/23/22 04/17/22 fluphenazine HCl 2.5 mg tablet 1 tab PO BEDTIME 03/19/22 04/17/22 fluphenazine HCl 5 mg tablet 1 tab PO BEDTIME 03/19/22 04/17/22 Previous Rx's Medication Instructions Recorded fluoxetine 20 mg capsule 40 mg PO DAILY 30 days #60 caps 09/29/21 mirtazapine 7.5 mg tablet 7.5 mg PO BEDTIME MRX1 30 days #60 10/18/21 tabs prazosin 1 mg capsule 4 mg PO BEDTIME 30 days #120 caps 10/18/21 ondansetron 4 mg disintegrating 4 mg PO Q6-8H PRN nausea and 02/04/22 tablet vomiting #14 tabs docusate sodium 100 mg capsule 100 mg PO BID Constipation #60 caps 02/07/22 (Colace) benzonatate 200 mg capsule 200 mg PO TID PRN cough #20 caps 03/21/22 Allergies Allergy/AdvReac Type Severity Reaction Status Date / Time Fish Containing Products Allergy Severe ANAPHYLAXIS Verified 04/20/22 16:42 codeine [Codeine] Allergy Unknown RASH Verified 04/20/22 16:42 Penicillins Allergy Unknown RASH Verified 04/20/22 16:42 prednisone [Prednisone] Allergy Unknown RASH Verified 04/20/22 16:42 Sulfa (Sulfonamide Allergy Unknown RASH Verified 04/20/22 16:42 Antibiotics) [Sulfa (Sulfonamides)] azithromycin [AZITHROMYCIN] AdvReac Severe RASH Verified 04/20/22 16:42 nicotine AdvReac Unknown HEART Verified 04/20/22 16:42 PALPITATION TO NICOTINE GUM Seafood Allergy Severe ANAPHYLAXIS Uncoded 11/05/21 21:13 From Geodon Allergy Unknown DYSURIA, Uncoded 11/05/21 21:13 RASH Review of Systems Review of Systems: Constitutional : No Fever, No Chills ENT/Mouth : No Ear Pain, No Nasal Congestion, No sore throat Eyes: No Eye Pain, No Swelling, No Redness Cardiovascular : No Chest Pain, No SOB Respiratory : No Cough, No Sputum, No Dyspnea Gastrointestinal : No Nausea, No Vomiting, No Diarrhea, No Hematochezia, No Melena Genitourinary : No Dysuria, No Urinary Frequency, No Hematuria Musculoskeletal : No Myalgias Skin : No Skin Lesions, No rash Neuro : No Weakness, No Numbness, No Paresthesias, No Dizziness, No Headache Psych : positive Anxiety, positive Depression, positive SI/HI Heme/Lymph: No Lymphadenopathy Endocrine : No Polyuria, No Polydipsia All other systems reviewed and are negative Yes all other systems are reviewed and are negative [facility] Past Medical History Attestation statement: The following information was validated with the patient. Source: old records reviewed and nursing notes reviewed Medical History Acetaminophen overdose Borderline personality disorder Bronchitis Depression Diabetes type 2, controlled GERD (gastroesophageal reflux disease) History of attempted suicide History of non-suicidal self-harm Hyperlipidemia Hypomagnesemia MDD (major depressive disorder), recurrent episode, severe Mood disorder Overdose PTSD (post-traumatic stress disorder) Suicide attempt Suicide attempt by acetaminophen overdose Social History Social History 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: None 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 Other:: Patient lives in jail. 4 in total live in jail. Housing: Other Housing Other:: jail Do you presently have visiting nurse or other home services: No Unable to assess alcohol history related to: Unknown Alcohol intake: never Patient Tobacco Use Status: Current everyday Tobacco user Tobacco use type: Cigarette Cigarette Packs Per Day: 1 Cigarettes Per Day: 20 Years Smoked: 20 e-Cigarette/Vaping Use: Never Used Use of substances other than those prescribed or required for medical reasons: Yes Substance Use Type: Marijuana Advance Directives: No Advance Directives Information Provided: No service: No Current occupational status: disabled Sexual orientation: Don't Know Physical Exam Vital Signs: Vital Signs: Last Vital Signs Temp 97.5 F 04/20/22 16:42 Pulse 99 04/20/22 16:42 Resp 18 04/20/22 16:42 BP 142/105 H 04/20/22 16:42 Pulse Ox 95 04/20/22 16:42 O2 Del Method 04/20/22 16:42 BMI result Body Mass Index 35.2 VSS slight HTN however likley secondary to anxiety Appearance: Alert.? Oriented X3.? No acute distress.? Head: Normocephalic, atraumatic, no step-offs or deformities Eyes: Pupils equal, round and reactive to light.? ENT: Pharynx normal.? Neck: Normal inspection.? Neck supple.? CVS: Normal heart rate and rhythm.? Pulses normal.? Respiratory: No respiratory distress.? Breath sounds normal.? Abdomen: Soft and nontender.? Skin: Skin warm and dry.? Normal skin color.? Normal skin turgor.? Old scarring self-inflicted wounds to abdomen, forearms bilaterally. Extremities: No lower extremity edema.? No calf ttp. 5/5 strength to bilateral upper and lower extremities Neuro: Oriented X 3.? No motor deficit.? No sensory deficit. CN 2-12 intact Course Reevaluation(s) Reevaluation #1: CBC appears to be around patient's baseline. Chemistry with no acute electrolyte abnormalities requiring intervention. Urine toxicology negative. COVID negative. Time: 19:15 Reevaluation #2: Patient evaluated by the care team, tells them she is feeling much better. Patient is feeling much better. No longer suicidal, denying homicidal ideation. Denies visual, auditory and tactile hallucinations. Tells us she is feeling better and would like to go back to her group. Patient is excited to go back. This time patient will be discharged home. Time: 19:23 MDM - Psych MDM Narrative Medical decision making narrative: [id number] 46 yo f presents w/ anxiety/panic, SI w/ plan to hang herself w/ blanket X1 day PE benign Plan- medical clearance and evaluation by behavioral health team. Medical Records Attestation: I reviewed the patient's medical records. Lab Data Attestation: I reviewed the patient's lab results. Result diagrams: 04/20/22 18:43 04/20/22 18:43 Labs: Lab Results 04/20/22 04/20/22 04/20/22 Range/Units 16:57 16:59 18:43 WBC 7.9 (4.8-10.8) X10*3/uL RBC 3.95 L (4.20-5.50) X10*6/uL Hgb 11.4 L (12.0-16.0) g/dl Hct 34.9 L (37.0-47.0) % MCV 88.4 (80.0-98.0) fL MCH 28.9 (27.0-33.0) pg MCHC 32.7 (31.0-35.0) g/dl RDW 13.2 (11.0-16.0) % Plt Count 295 (160-400) X10*3/uL MPV 9.7 (9.4-12.3) fL Immature Gran % (Auto) 0.3 (0.0-0.4) % Neut % (Auto) 63.5 (45-73) % Lymph % (Auto) 25.4 (20-40) % [place] % (Auto) 7.6 (2-11) % Eos % (Auto) 2.8 (0-4) % Baso % (Auto) 0.4 (0-2) % Lymph # (Auto) 2.0 (1.2-4.9) X10*3/uL [place] # (Auto) 0.6 (0.1-1.2) X10*3/uL Eos # (Auto) 0.2 (0.0-0.4) X10*3/uL Baso # (Auto) 0.0 (0.0-0.2) X10*3/uL Abs Immat Gran (auto) 0.02 (0.00-0.03) X10*3/uL Absolute Neuts (auto) 5.0 (2.0-8.3) x10*3/uL Absolute Nucleated RBC 0.000 (0.0-0.012) X10*3/uL Nucleated RBC % (auto) 0.0 (0.0-0.2) /100WBC Sodium (135-145) mmol/L Potassium (3.3-5.1) mmol/L Chloride (96-108) mmol/L Carbon Dioxide (22-29) mmol/L Anion Gap (12-20) BUN (9-16) mg/dL Creatinine (0.5-1.4) mg/dL Estim Creat Clear Calc Estimated GFR Random Glucose (60-115) mg/dL Calcium (8.4-10.2) mg/dL Total Bilirubin (0.0-1.0) mg/dL AST (5-31) U/L ALT (0-31) U/L Alkaline Phosphatase (39-117) U/L Total Protein (6.5-8.0) g/dL Albumin (3.5-5.0) g/dL Salicylates (15-30) mg/dL Urine Opiates Screen Not Detected (Not Detect) Urine Fentanyl Screen Not Detected (Not Detect) Acetaminophen (<30) mcg/mL Ur Barbiturates Screen Not Detected (Not Detect) Ur Phencyclidine Scrn Not Detected (Not Detect) Ur Amphetamines Screen Not Detected (Not Detect) U Benzodiazepines Scrn Not Detected (Not Detect) Urine Cocaine Screen Not Detected (Not Detect) U Marijuana (THC) Screen Not Detected (Not Detect) Ethyl Alcohol mg/dL COVID-19 (NICK) Negative (Negative) COVID-19 Clin Com See Note 04/20/22 Range/Units 18:43 WBC (4.8-10.8) X10*3/uL RBC (4.20-5.50) X10*6/uL Hgb (12.0-16.0) g/dl Hct (37.0-47.0) % MCV (80.0-98.0) fL MCH (27.0-33.0) pg MCHC (31.0-35.0) g/dl RDW (11.0-16.0) % Plt Count (160-400) X10*3/uL MPV (9.4-12.3) fL Immature Gran % (Auto) (0.0-0.4) % Neut % (Auto) (45-73) % Lymph % (Auto) (20-40) % [place] % (Auto) (2-11) % Eos % (Auto) (0-4) % Baso % (Auto) (0-2) % Lymph # (Auto) (1.2-4.9) X10*3/uL [place] # (Auto) (0.1-1.2) X10*3/uL Eos # (Auto) (0.0-0.4) X10*3/uL Baso # (Auto) (0.0-0.2) X10*3/uL Abs Immat Gran (auto) (0.00-0.03) X10*3/uL Absolute Neuts (auto) (2.0-8.3) x10*3/uL Absolute Nucleated RBC (0.0-0.012) X10*3/uL Nucleated RBC % (auto) (0.0-0.2) /100WBC Sodium 138 (135-145) mmol/L Potassium 4.2 (3.3-5.1) mmol/L Chloride 107 (96-108) mmol/L Carbon Dioxide 20 L (22-29) mmol/L Anion Gap 15 (12-20) BUN 8 L (9-16) mg/dL Creatinine 0.86 (0.5-1.4) mg/dL Estim Creat Clear Calc 92.2 Estimated GFR > 60 Random Glucose 92 (60-115) mg/dL Calcium 9.0 (8.4-10.2) mg/dL Total Bilirubin 0.2 (0.0-1.0) mg/dL AST 17 (5-31) U/L ALT 14 (0-31) U/L Alkaline Phosphatase 91 (39-117) U/L Total Protein 7.1 (6.5-8.0) g/dL Albumin 4.4 (3.5-5.0) g/dL Salicylates < 5.0 L (15-30) mg/dL Urine Opiates Screen (Not Detect) Urine Fentanyl Screen (Not Detect) Acetaminophen < 1 (<30) mcg/mL Ur Barbiturates Screen (Not Detect) Ur Phencyclidine Scrn (Not Detect) Ur Amphetamines Screen (Not Detect) U Benzodiazepines Scrn (Not Detect) Urine Cocaine Screen (Not Detect) U Marijuana (THC) Screen (Not Detect) Ethyl Alcohol < 10 mg/dL COVID-19 (NICK) (Negative) COVID-19 Clin Com Critical Care Time Critical Care Time Critical Care Time: No Discharge Plan Discharge Clinical Impression: Depression, Acute anxiety Patient Disposition: Home, Self-Care Instructions: Depression (ED), Anxiety (ED) Additional Instructions: Take your medications as prescribed. If you were prescribed antibiotics today, it is important that you take your medication to their entirety, do not skip any doses, do not finish them early. Follow-up with your primary care provider this week. Return to the emergency department with new or worsening symptoms. Such as fevers, chills, chest pain, shortness of breath, nausea, vomiting, dizziness, headache, vision changes, lethargy , anxiety, depression, suicidal ideation or homicidal ideation. In case of emergency call 911 Prescriptions: No Action metformin 500 mg tablet 1 tab PO BID atorvastatin 10 mg tablet 1 tab PO DAILY verapamil 240 mg tablet extended release 240 mg PO BEDTIME montelukast 10 mg tablet 1 tab PO BEDTIME fluticasone propionate [Flovent HFA] 110 mcg/actuation HFA aerosol inhaler 2 puff inhalation BID albuterol sulfate [Ventolin HFA] 90 mcg/actuation HFA aerosol inhaler 2 puff inhalation Q4H PRN (Reason: Shortness Of Breath) trazodone 150 mg tablet 150 mg PO BEDTIME PRN (Reason: insomnia) benztropine 1 mg tablet 1 mg PO DAILY naproxen 500 mg tablet 1 tab PO BID docusate sodium [Colace] 100 mg capsule 100 mg PO BID Qty: 60 0RF benzonatate 200 mg capsule 200 mg PO TID PRN (Reason: cough) Qty: 20 0RF fluoxetine 20 mg Capsule 40 mg PO DAILY 30 Days Qty: 60 0RF prazosin 1 mg Capsule 4 mg PO BEDTIME 30 Days Qty: 120 0RF Protocol: Hold for SBP< HOLD for SBP < : 90 mirtazapine 7.5 mg Tablet 7.5 mg PO BEDTIME MRX1 30 Days Qty: 60 0RF lisinopril 5 mg tablet 1 tab PO DAILY ondansetron 4 mg tablet,disintegrating 4 mg PO Q6-8H PRN (Reason: nausea and vomiting) Qty: 14 0RF fluphenazine HCl 2.5 mg tablet 1 tab PO BEDTIME fluphenazine HCl 5 mg tablet 1 tab PO BEDTIME Referrals: [facility] [Provider Group] - 2 days Maribel Marquez NP [Primary Care Provider] - 2 days
[2022-04-20 17:31] LABS: COVID-19 Test Negative (Negative); IDNOW Serial# 16C4AD1C
[2022-04-20 17:33] LABS: Amphetamine Screen Urine Not Detected (Not Detect); Barbiturates, Urine Not Detected (Not Detect); Benzodiazepines Screen Urine Not Detected (Not Detect); Cannabinoid Screen Urine Not Detected (Not Detect); Cocaine Screen Urine Not Detected (Not Detect); Fentanyl, urine Not Detected (Not Detect); Opiate Screen Urine Not Detected (Not Detect); Phencyclidine Screen Urine Not Detected (Not Detect)
[2022-04-20 18:47] LABS: MANUAL DIFF FLAG NO
[2022-04-20 18:50] LABS: Basophils Percent Auto 0.4 % (0-2); Eosinophils Absolute Auto 0.2 X10*3/uL (0.0-0.4); Eosinophils Percent Auto 2.8 % (0-4); Hematocrit 34.9 % (37.0-47.0); Hemoglobin 11.4 g/dl (12.0-16.0); Imm Gran Abs Auto 0.02 X10*3/uL (0.00-0.03); Imm Gran Pct Auto 0.3 % (0.0-0.4); Lymphocytes Percent Auto 25.4 % (20-40); Mean Corpuscular HGB Conc 32.7 g/dl (31.0-35.0); Mean Corpuscular Hemoglobin 28.9 pg (27.0-33.0); Mean Corpuscular Volume 88.4 fL (80.0-98.0); Mean Platelet Volume 9.7 fL (9.4-12.3); Monocytes Absolute Auto 0.6 X10*3/uL (0.1-1.2); Monocytes Percent Auto 7.6 % (2-11); Neutrophils Percent Auto 63.5 % (45-73); Platelet Count 295 X10*3/uL (160-400); Red Blood Count 3.95 X10*6/uL (4.20-5.50); Red Cell Distribution Width 13.2 % (11.0-16.0); White Blood Count 7.9 X10*3/uL (4.8-10.8)
--- NOTE | 2022-04-20 18:54 | MHC.CARE ---
CARE team met with pt. Pt requesting to leave at this time. She reports she feels at baseline and that her episodes come in waves . Pt states that she goes to [facility] day program and looks forward to that every day. She states she has day program tomorrow morning and needs to go to sleep early. Pt denies SI/HI and AH/VH at this time. [facility]ARE Team contacted jail and left a voicemail.
[2022-04-20 19:05] LABS: Acetaminophen LAB < 1 mcg/mL (<30); Alanine Aminotransferase 14 U/L (0-31); Albumin Level 4.4 g/dL (3.5-5.0); Alkaline Phosphatase 91 U/L (39-117); Anion Gap 15 (12-20); Aspartate Amino Transferase 17 U/L (5-31); Bilirubin Total 0.2 mg/dL (0.0-1.0); Blood Urea Nitrogen 8 mg/dL (9-16); Carbon Dioxide 20 mmol/L (22-29); Chloride 107 mmol/L (96-108); Creatinine Clr Calc Pharmacy 92.2; Estimated Glomerular Filt Rate > 60; Ethanol < 10 mg/dL; Glucose Random 92 mg/dL (60-115); Potassium 4.2 mmol/L (3.3-5.1); Salicylate < 5.0 mg/dL (15-30); Sodium 138 mmol/L (135-145); Total Protein 7.1 g/dL (6.5-8.0)
== END 2022-04-20 19:37 | disposition home or self-care (01) ==
PROVIDERS: Physician Assistant; Emergency Provider Internal Medicine; PCP Nurse Practitioner Family
DX: F33.1 Major depressive disorder, recurrent, moderate (principal); R45.851 Suicidal ideations; R44.0 Auditory hallucinations; F41.1 Generalized anxiety disorder; F43.0 Acute stress reaction; Z20.822 Contact with and (suspected) exposure to COVID-19; F17.210 Nicotine dependence, cigarettes, uncomplicated; Z71.6 Tobacco abuse counseling; Z79.899 Other long term (current) drug therapy
CPT/HCPCS: 36415; 80053; 80143; 80179; 80307; 82077; 85025; 87635; 99284

== ENCOUNTER 2022-04-22 12:49 | Emergency (ER) | payer MEDICARE, MEDICAID, SELFPAY ==
--- NOTE | 2022-04-22 12:52 | ED_ITS ---
HPI - Psych General Chief Complaint: Psychiatric Symptoms Stated Complaint: SI w/no plan Time Seen by Provider: 04/22/22 12:52 Source: patient and EMS Mode of arrival: EMS Limitations: no limitations History of Present Illness HPI Narrative: 46-year-old female with past medical history of borderline personality disorder, depression, anxiety, bipolar 2 with melancholic features, PTSD, DM, GERD? presents today with suicidal ideations. Patient hearing voices telling her to hurt herself. She denies any ingestion. No physical complaints no substance use Related Data Home Medications Medication Instructions Recorded Confirmed atorvastatin 10 mg tablet 1 tab PO DAILY 05/29/21 04/17/22 fluticasone propionate 110 2 puff inhalation BID 05/29/21 04/17/22 mcg/actuation HFA aerosol inhaler (Flovent HFA) metformin 500 mg tablet 1 tab PO BID 05/29/21 04/17/22 montelukast 10 mg tablet 1 tab PO BEDTIME 05/29/21 04/17/22 verapamil 240 mg tablet,extended 240 mg PO BEDTIME 05/29/21 04/17/22 release albuterol sulfate 90 mcg/actuation 2 puff inhalation Q4H PRN 06/15/21 04/17/22 aerosol inhaler (Ventolin HFA) Shortness Of Breath trazodone 150 mg tablet 150 mg PO BEDTIME PRN insomnia 11/05/21 04/17/22 lisinopril 5 mg tablet 1 tab PO DAILY 11/14/21 04/17/22 benztropine 1 mg tablet 1 mg PO DAILY 12/26/21 04/17/22 naproxen 500 mg tablet 1 tab PO BID 01/23/22 04/17/22 fluphenazine HCl 2.5 mg tablet 1 tab PO BEDTIME 03/19/22 04/17/22 fluphenazine HCl 5 mg tablet 1 tab PO BEDTIME 03/19/22 04/17/22 Previous Rx's Medication Instructions Recorded fluoxetine 20 mg capsule 40 mg PO DAILY 30 days #60 caps 09/29/21 mirtazapine 7.5 mg tablet 7.5 mg PO BEDTIME MRX1 30 days #60 10/18/21 tabs prazosin 1 mg capsule 4 mg PO BEDTIME 30 days #120 caps 10/18/21 ondansetron 4 mg disintegrating 4 mg PO Q6-8H PRN nausea and 02/04/22 tablet vomiting #14 tabs docusate sodium 100 mg capsule 100 mg PO BID Constipation #60 caps 02/07/22 (Colace) benzonatate 200 mg capsule 200 mg PO TID PRN cough #20 caps 03/21/22 Allergies Allergy/AdvReac Type Severity Reaction Status Date / Time Fish Containing Products Allergy Severe ANAPHYLAXIS Verified 04/20/22 16:42 codeine [Codeine] Allergy Unknown RASH Verified 04/20/22 16:42 Penicillins Allergy Unknown RASH Verified 04/20/22 16:42 prednisone [Prednisone] Allergy Unknown RASH Verified 04/20/22 16:42 Sulfa (Sulfonamide Allergy Unknown RASH Verified 04/20/22 16:42 Antibiotics) [Sulfa (Sulfonamides)] azithromycin [AZITHROMYCIN] AdvReac Severe RASH Verified 04/20/22 16:42 nicotine AdvReac Unknown HEART Verified 04/20/22 16:42 PALPITATION TO NICOTINE GUM Seafood Allergy Severe ANAPHYLAXIS Uncoded 11/05/21 21:13 From Geodon Allergy Unknown DYSURIA, Uncoded 11/05/21 21:13 RASH Review of Systems Review of Systems: Yes all other systems are reviewed and are negative Constitutional: Constitutional: Reports no additional constitutional complaints, Denies body ache(s), Denies chills, Denies fever(s), Denies headache(s) and Denies weakness Eyes: Eyes: Reports no additional eye complaints and Denies change in vision ENT: Reports system reviewed and no additional complaints, except as documented, Denies dizziness, Denies headache(s), Denies nasal congestion, Denies nasal discharge and Denies neck pain Cardiovascular: Cardiovascular: Reports no additional cardiovascular complaints, Denies chest pain, Denies leg edema and Denies dyspnea Respiratory: Respiratory: Reports no additional respiratory complaints, Denies cough and Denies dyspnea Gastrointestinal: Gastrointestinal: Reports no additional gastrointestinal complaints, Denies abdominal pain, Denies diarrhea, Denies nausea and Denies vomiting Genitourinary: Genitourinary: Reports no additional female genitourinary complaints and Denies urinary incontinence Musculoskeletal: Musculoskeletal: Reports no additional musculoskeletal complaints, Denies back pain, Denies arthralgias, Denies joint swelling, Denies neck pain, Denies numbness and Denies tingling Integumentary/Breasts: Skin/Breast: Reports system reviewed and no additional complaints, except as docu and Denies rash Neurologic: Reports system reviewed and no additional complaints, except as documented, Denies Abnormal speech present, Denies dizziness, Denies headache(s), Denies numbness, Denies tingling and Denies weakness Psychiatric: Psychiatric: Reports auditory hallucinations and Reports suicidal ideation [facility] Past Medical History Attestation statement: The following information was validated with the patient. Source: old records reviewed and nursing notes reviewed Medical History Acetaminophen overdose Borderline personality disorder Bronchitis Depression Diabetes type 2, controlled GERD (gastroesophageal reflux disease) History of attempted suicide History of non-suicidal self-harm Hyperlipidemia Hypomagnesemia MDD (major depressive disorder), recurrent episode, severe Mood disorder Overdose PTSD (post-traumatic stress disorder) Suicide attempt Suicide attempt by acetaminophen overdose Social History Social History 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: None 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 Other:: Patient lives in half-way. 4 in total live in half-way. Housing: Other Housing Other:: half-way Do you presently have visiting nurse or other home services: No Unable to assess alcohol history related to: Unknown Alcohol intake: never Patient Tobacco Use Status: Current everyday Tobacco user Tobacco use type: Cigarette Cigarette Packs Per Day: 1 Cigarettes Per Day: 20 Years Smoked: 20 e-Cigarette/Vaping Use: Never Used Use of substances other than those prescribed or required for medical reasons: No Substance Use Type: Marijuana Advance Directives: No Advance Directives Information Provided: No service: No Current occupational status: disabled Sexual orientation: Don't Know Physical Exam Vital Signs: Vital Signs: Last Vital Signs Temp 98 F 04/22/22 16:54 Pulse 83 04/22/22 16:54 Resp 15 04/22/22 16:54 BP 103/48 L 04/22/22 16:54 Pulse Ox 97 04/22/22 16:54 O2 Del Method 04/22/22 16:54 BMI result Body Mass Index 48.8 Const: General: cooperative, healthy appearing, comfortable and no acute distress Orientation/consciousness: patient oriented x3 Limitations: no limitations HEENT: Head: Yes normal to inspection Ears: hearing grossly normal bilaterally General nose exam: Normal external nose present Face and sinus: Yes normal facial exam Mouth: Normal oral and palatal mucosa present Throat: Yes posterior oropharynx normal Eyes: General: appearance normal, both eyes and all related structures Pupils: Equal, round and reactive pupils present Neck: Neck: Yes normal visual inspection Chest: Chest palpation & inspection: normal inspection of the chest Resp: Effort & Inspection: normal respiratory effort Auscultation: clear to auscultation bilaterally Cardio: Rate: regular rate Rhythm: regular rhythm Peripheral pulses: Peripheral pulses 2+ throughout GI: Inspection: Yes normal to inspection Palpation (GI): Soft to palpation and nontender Auscultation: normal bowel sounds Back/Spine/Pelvis: Thoracic/Lumbar Spine: thoracic and lumbar spine normal to inspection Skin: General skin exam: no rashes or lesions noted Neuro: General: patient oriented x3, no focal motor deficits and normal sensation to monofilament Cranial nerves: Yes CN's II-XII intact bilaterally and Yes Equal, round and reactive pupils present Cognition (Neuro): normal cognition Speech: No Abnormal speech present Gait exam (Neuro): Normal gait present Motor exam (neuro): 5/5 motor strength present throughout Extrem: General: Yes normal to inspection Course Course Course Narrative: Patient seen by care team. Plan for discharge back to the half-way. Patient is at baseline. MDM - Psych MDM Narrative Medical decision making narrative: 46-year-old female here with reports of suicidal thoughts with plan to cut herself and hearing voices that are telling her to harm herself. Will obtain crisis consultation. No concern for acute ingestion or trauma Medical Records Attestation: I reviewed the patient's medical records. Lab Data Attestation: I reviewed the patient's lab results. Labs: Lab Results 04/22/22 04/22/22 Range/Units 13:39 13:39 Urine Opiates Screen Not Detected (Not Detect) Urine Fentanyl Screen POSITIVE H (Not Detect) Ur Barbiturates Screen Not Detected (Not Detect) Ur Phencyclidine Scrn Not Detected (Not Detect) Ur Amphetamines Screen Not Detected (Not Detect) U Benzodiazepines Scrn Not Detected (Not Detect) Urine Cocaine Screen Not Detected (Not Detect) U Marijuana (THC) Screen Not Detected (Not Detect) COVID-19 (NICK) Negative (Negative) COVID-19 Clin Com See Note Discharge Plan Discharge Clinical Impression: Borderline personality disorder Patient Disposition: Home, Self-Care Instructions: Borderline Personality Disorder (DC) Additional Instructions: Follow-up with your outpatient providers Prescriptions: No Action metformin 500 mg tablet 1 tab PO BID atorvastatin 10 mg tablet 1 tab PO DAILY verapamil 240 mg tablet extended release 240 mg PO BEDTIME montelukast 10 mg tablet 1 tab PO BEDTIME fluticasone propionate [Flovent HFA] 110 mcg/actuation HFA aerosol inhaler 2 puff inhalation BID albuterol sulfate [Ventolin HFA] 90 mcg/actuation HFA aerosol inhaler 2 puff inhalation Q4H PRN (Reason: Shortness Of Breath) trazodone 150 mg tablet 150 mg PO BEDTIME PRN (Reason: insomnia) benztropine 1 mg tablet 1 mg PO DAILY naproxen 500 mg tablet 1 tab PO BID docusate sodium [Colace] 100 mg capsule 100 mg PO BID Qty: 60 0RF benzonatate 200 mg capsule 200 mg PO TID PRN (Reason: cough) Qty: 20 0RF fluoxetine 20 mg Capsule 40 mg PO DAILY 30 Days Qty: 60 0RF prazosin 1 mg Capsule 4 mg PO BEDTIME 30 Days Qty: 120 0RF Protocol: Hold for SBP< HOLD for SBP < : 90 mirtazapine 7.5 mg Tablet 7.5 mg PO BEDTIME MRX1 30 Days Qty: 60 0RF lisinopril 5 mg tablet 1 tab PO DAILY ondansetron 4 mg tablet,disintegrating 4 mg PO Q6-8H PRN (Reason: nausea and vomiting) Qty: 14 0RF fluphenazine HCl 2.5 mg tablet 1 tab PO BEDTIME fluphenazine HCl 5 mg tablet 1 tab PO BEDTIME Referrals: Maribel Marquez NP [Primary Care Provider] - Interventions: ED Discharge Assessment Last Done: 04/22/22 19:06 Discharge Date/Time: 04/22/22 19:23
[2022-04-22 13:00] VITALS: BP 142/72; PULSE 74; RESP 18; TEMP 36.9; O2SAT 100; BMI 48.8
[2022-04-22 14:01] LABS: COVID-19 Test Negative (Negative)
[2022-04-22 14:04] LABS: Amphetamine Screen Urine Not Detected (Not Detect); Barbiturates, Urine Not Detected (Not Detect); Benzodiazepines Screen Urine Not Detected (Not Detect); Cannabinoid Screen Urine Not Detected (Not Detect); Cocaine Screen Urine Not Detected (Not Detect); Fentanyl, urine POSITIVE (Not Detect); Opiate Screen Urine Not Detected (Not Detect); Phencyclidine Screen Urine Not Detected (Not Detect)
[2022-04-22] MEDS: Nicotine 21 MG PATCH.TD24 TRANSDERMA (16:00)
[2022-04-22 16:54] VITALS: BP 103/48; PULSE 83; RESP 15; TEMP 36.6; O2SAT 97
--- NOTE | 2022-04-22 18:45 | MHC.CARE ---
CARE team met with pt to assess level of risk for harm to self or others. Pt is well known to this publications writer and the CARE team from previous encounters. Pt arrived to the ED via ambulance this afternoon endorsing increased auditory hallucinations and vague SI. She denied any recent engagement in self harm or suicide attempts. Pt approached this publications writer and expressed that she feels better and wishes to return to her [facility]. She denied experiencing any thoughts of suicide or harming self and stated that the voices have returned to a manageable level. She initially struggled with identifying a triggering event precipitating the exacerbation of symptoms, then shared that a peer in the [facility] had been calling her vulgar names for reasons unknown to her and feels that may have been part of it. Recommendation is for pt to discharge home and follow up with outpatient providers and treatment as planned.
== END 2022-04-22 19:23 | disposition home or self-care (01) ==
PROVIDERS: Nurse Practitioner Family; Emergency Provider Emergency Medicine; PCP Nurse Practitioner Family
DX: F33.1 Major depressive disorder, recurrent, moderate (principal); R45.851 Suicidal ideations; F41.1 Generalized anxiety disorder; F43.0 Acute stress reaction; Z20.822 Contact with and (suspected) exposure to COVID-19; Z79.899 Other long term (current) drug therapy; F17.210 Nicotine dependence, cigarettes, uncomplicated; Z71.6 Tobacco abuse counseling
CPT/HCPCS: 80307; 87635; 99284

== ENCOUNTER 2022-04-23 12:28 | Emergency (ER) | payer MEDICARE, MEDICAID, SELFPAY ==
[2022-04-23 12:36] VITALS: BP 130/64; BP 132/86; PULSE 85; PULSE 89; RESP 18; TEMP 35.9; O2SAT 98; BMI 34.6
--- NOTE | 2022-04-23 13:26 | ED.PSYCH ---
HPI - Psych General Chief Complaint: Psychiatric Symptoms Stated Complaint: SI no plan Time Seen by Provider: 04/23/22 12:43 Source: patient, EMS and old records reviewed Mode of arrival: EMS Limitations: no limitations History of Present Illness HPI Narrative: 46-year-old female with a history of borderline personality does disorder, depression, anxiety bipolar 2 with melancholic features, PTSD, DM, GERD who presents to the ER with recurrence SI and auditory hallucinations with voices telling her to harm herself. She was seen here yesterday for the same. This is her 13 the ER visit since March 15 for psychiatric complaints. She states she has been bouncing from ER to ER and recently went to [facility] as well. She reports the voices are getting stronger or and all she wants to do is hurt herself. She denies any recent attempts. She has not cut herself today. She wants to stay in the hospital. She does not feel safe going home. MD complaint: suicidal ideation, feels depressed and hallucinations Onset (ago): unknown Duration: constant History of same: Yes Relieving factors: none Exacerbating factors: none Context: significant life stressor Associated psychiatric symptoms: depression, suicidal ideation, auditory hallucinations and visual hallucinations Associated symptoms: insomnia Treatments prior to arrival: none If self harm: admits thoughts of self harm and has plan Details of plan: Overdose or self-inflicted trauma Related Data Home Medications Medication Instructions Recorded Confirmed atorvastatin 10 mg tablet 1 tab PO DAILY 05/29/21 04/17/22 fluticasone propionate 110 2 puff inhalation BID 05/29/21 04/17/22 mcg/actuation HFA aerosol inhaler (Flovent HFA) metformin 500 mg tablet 1 tab PO BID 05/29/21 04/17/22 montelukast 10 mg tablet 1 tab PO BEDTIME 05/29/21 04/17/22 verapamil 240 mg tablet,extended 240 mg PO BEDTIME 05/29/21 04/17/22 release albuterol sulfate 90 mcg/actuation 2 puff inhalation Q4H PRN 06/15/21 04/17/22 aerosol inhaler (Ventolin HFA) Shortness Of Breath trazodone 150 mg tablet 150 mg PO BEDTIME PRN insomnia 11/05/21 04/17/22 lisinopril 5 mg tablet 1 tab PO DAILY 11/14/21 04/17/22 benztropine 1 mg tablet 1 mg PO DAILY 12/26/21 04/17/22 naproxen 500 mg tablet 1 tab PO BID 01/23/22 04/17/22 fluphenazine HCl 2.5 mg tablet 1 tab PO BEDTIME 03/19/22 04/17/22 fluphenazine HCl 5 mg tablet 1 tab PO BEDTIME 03/19/22 04/17/22 Previous Rx's Medication Instructions Recorded fluoxetine 20 mg capsule 40 mg PO DAILY 30 days #60 caps 09/29/21 mirtazapine 7.5 mg tablet 7.5 mg PO BEDTIME MRX1 30 days #60 10/18/21 tabs prazosin 1 mg capsule 4 mg PO BEDTIME 30 days #120 caps 10/18/21 ondansetron 4 mg disintegrating 4 mg PO Q6-8H PRN nausea and 02/04/22 tablet vomiting #14 tabs docusate sodium 100 mg capsule 100 mg PO BID Constipation #60 caps 02/07/22 (Colace) benzonatate 200 mg capsule 200 mg PO TID PRN cough #20 caps 03/21/22 Allergies Allergy/AdvReac Type Severity Reaction Status Date / Time Fish Containing Products Allergy Severe ANAPHYLAXIS Verified 04/20/22 16:42 codeine [Codeine] Allergy Unknown RASH Verified 04/20/22 16:42 Penicillins Allergy Unknown RASH Verified 04/20/22 16:42 prednisone [Prednisone] Allergy Unknown RASH Verified 04/20/22 16:42 Sulfa (Sulfonamide Allergy Unknown RASH Verified 04/20/22 16:42 Antibiotics) [Sulfa (Sulfonamides)] azithromycin [AZITHROMYCIN] AdvReac Severe RASH Verified 04/20/22 16:42 nicotine AdvReac Unknown HEART Verified 04/20/22 16:42 PALPITATION TO NICOTINE GUM Seafood Allergy Severe ANAPHYLAXIS Uncoded 11/05/21 21:13 From Geodon Allergy Unknown DYSURIA, Uncoded 11/05/21 21:13 RASH Review of Systems Review of Systems: Constitutional: No Fever, No Chills ENT/Mouth: No sore throat, No Rhinorrhea, No Swallowing Difficulty Eyes: No Eye Pain, No Swelling, No Redness Cardiovascular: No Chest Pain, No SOB, No Orthopnea, No Edema Respiratory: No Cough, No Sputum, No Wheezing, No dyspnea Gastrointestinal: No Nausea, No Vomiting, No Diarrhea, No abdominal Pain Genitourinary: No Dysuria, No Urinary Frequency, No Hematuria Musculoskeletal: No joint pain, No Myalgias Skin: No Skin Lesions, No rash Neuro: No Weakness, No Numbness, No Dizziness, No Headache Psych: + Anxiety/Panic, + Depression, +SI, +AH, +VH, No HI Heme/Lymph: No Bruising, No Lymphadenopathy Endocrine: No Polyuria, No Polydipsia [facility] Past Medical History Medical History Acetaminophen overdose Borderline personality disorder Bronchitis Depression Diabetes type 2, controlled GERD (gastroesophageal reflux disease) History of attempted suicide History of non-suicidal self-harm Hyperlipidemia Hypomagnesemia MDD (major depressive disorder), recurrent episode, severe Mood disorder Overdose PTSD (post-traumatic stress disorder) Suicide attempt Suicide attempt by acetaminophen overdose Social History Social History 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: None 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 Other:: Patient lives in care home. 4 in total live in care home. Housing: Other Housing Other:: care home Do you presently have visiting nurse or other home services: No Unable to assess alcohol history related to: Unknown Alcohol intake: never Patient Tobacco Use Status: Current everyday Tobacco user Tobacco use type: Cigarette Cigarette Packs Per Day: 1 Cigarettes Per Day: 20 Years Smoked: 20 e-Cigarette/Vaping Use: Never Used Substance Use Type: Marijuana Advance Directives: No Advance Directives Information Provided: No service: No Current occupational status: disabled Sexual orientation: Don't Know Physical Exam Vital Signs: Vital Signs: Last Vital Signs Temp 96.7 F L 04/23/22 12:36 Pulse 85 04/23/22 12:36 Resp 18 04/23/22 12:36 BP 130/64 04/23/22 12:36 Pulse Ox 98 04/23/22 12:36 O2 Del Method 04/23/22 12:36 BMI result Body Mass Index 34.6 Appearance: Alert. Oriented X3. No acute distress. Eyes: Pupils equal, round and reactive to light. ENT: Pharynx normal. Neck: Normal inspection. Neck supple. CVS: Normal heart rate and rhythm. Pulses normal. Respiratory: No respiratory distress. Breath sounds normal. Abdomen: Soft and nontender. +BS x4 Skin: Skin warm and dry. Normal skin color. Normal skin turgor. No rashes. Extremities: No lower extremity edema. Bilateral forearms with well healed self-inflicted scars Neuro/psych: Oriented X 3. No motor deficit. No sensory deficit. CN II-XII intact. Makes eye contact, tearful, anxious. Depressed Course Course Course Narrative: 46-year-old female with history of borderline personality disorder, bipolar 2, anxiety, depression, PTSD presenting with recurrent suicidal ideations, auditory hallucinations. She reports not feeling safe at her care home. She is feels that if she were to get discharge she would be right back. She is asking to stay. Care team has been consulted. Reevaluation(s) Reevaluation #1: Lucita is feeling like she is safe to be discharged home at this time she is stable for DC home with outpatient follow-up. Critical Care Time Critical Care Time Critical Care Time: No Discharge Plan Discharge Clinical Impression: Borderline personality disorder Patient Disposition: Home, Self-Care Instructions: Borderline Personality Disorder (DC) Additional Instructions: Take all of your prescriptions as prescribed. Follow-up with your a therapist and provider as soon as possible. If you develop new or worsening symptoms call 911 or come back to the ER for further evaluation. Prescriptions: No Action metformin 500 mg tablet 1 tab PO BID atorvastatin 10 mg tablet 1 tab PO DAILY verapamil 240 mg tablet extended release 240 mg PO BEDTIME montelukast 10 mg tablet 1 tab PO BEDTIME fluticasone propionate [Flovent HFA] 110 mcg/actuation HFA aerosol inhaler 2 puff inhalation BID albuterol sulfate [Ventolin HFA] 90 mcg/actuation HFA aerosol inhaler 2 puff inhalation Q4H PRN (Reason: Shortness Of Breath) trazodone 150 mg tablet 150 mg PO BEDTIME PRN (Reason: insomnia) benztropine 1 mg tablet 1 mg PO DAILY naproxen 500 mg tablet 1 tab PO BID docusate sodium [Colace] 100 mg capsule 100 mg PO BID Qty: 60 0RF benzonatate 200 mg capsule 200 mg PO TID PRN (Reason: cough) Qty: 20 0RF fluoxetine 20 mg Capsule 40 mg PO DAILY 30 Days Qty: 60 0RF prazosin 1 mg Capsule 4 mg PO BEDTIME 30 Days Qty: 120 0RF Protocol: Hold for SBP< HOLD for SBP < : 90 mirtazapine 7.5 mg Tablet 7.5 mg PO BEDTIME MRX1 30 Days Qty: 60 0RF lisinopril 5 mg tablet 1 tab PO DAILY ondansetron 4 mg tablet,disintegrating 4 mg PO Q6-8H PRN (Reason: nausea and vomiting) Qty: 14 0RF fluphenazine HCl 2.5 mg tablet 1 tab PO BEDTIME fluphenazine HCl 5 mg tablet 1 tab PO BEDTIME
[2022-04-23] MEDS: Nicotine 21 MG PATCH.TD24 TRANSDERMA (13:59)
--- NOTE | 2022-04-23 18:01 | MHC.CARE ---
CARE team met with Pt to assess level of risk for harm to self or others. Pt is well known to CARE team from multiple previous encounters/assessments. Pt arrived to the ED via ambulance this afternoon reporting increased auditory hallucinations she reports were command in nature telling her to harm herself. She denied any self harming behaviors today or suicide thoughts. CARE team met with Pt and expressed that she feels better and wants to return to her [facility]. She denies any suicidal ideation, plan or intent and reports voices have lessened . She reports she has been sleeping and eating better . She reports she is not able to state a trigger today, however reports she got up this morning and was fine and that her urges came very quickly, so I called 911 . She reports she feels safe returning to her [facility] and requested a check in call from CARE team at 7:30 PM. Recommendation is for Pt to discharge back to the [facility] and follow up with outpatient providers and treatment as planned, support phone call to be provided at requested time tonight for check in and support.
--- NOTE | 2022-04-23 19:31 | MHC.CARE ---
CARE team called and checked in with Lucita per her requests, she reports she is sitting outside and talking with staff and then wants to watch a movie right and CARE team discussed coping skills implemented on her care plan to utilize. She will call CARE for phone support if needed later on in the evening.
== END 2022-04-23 18:09 | disposition home or self-care (01) ==
PROVIDERS: Emergency Provider Emergency Medicine; PCP Nurse Practitioner Family
DX: F60.3 Borderline personality disorder (principal); R45.851 Suicidal ideations; R44.0 Auditory hallucinations; R44.1 Visual hallucinations; F41.9 Anxiety disorder, unspecified; F31.81 Bipolar II disorder; F43.10 Post-traumatic stress disorder, unspecified; E11.9 Type 2 diabetes mellitus without complications; Z79.02 Long term (current) use of antithrombotics/antiplatelets; Z79.84 Long term (current) use of oral hypoglycemic drugs; Z79.899 Other long term (current) drug therapy; F17.200 Nicotine dependence, unspecified, uncomplicated; F12.90 Cannabis use, unspecified, uncomplicated; Z91.51 Personal history of suicidal behavior
CPT/HCPCS: 99284

== ENCOUNTER 2022-04-24 17:19 | Emergency (ER) | payer MEDICARE, MEDICAID, SELFPAY ==
--- NOTE | 2022-04-24 18:05 | ED_ITS ---
HPI - Psych General Chief Complaint: Psychiatric Symptoms Stated Complaint: crisis Time Seen by Provider: 04/24/22 17:57 Source: patient and EMS Mode of arrival: EMS Limitations: no limitations History of Present Illness HPI Narrative: 46-year-old female with a history of borderline personality does disorder, depression, anxiety bipolar 2 with melancholic features, PTSD, DM, GERD who presents to the ER with increased anxiety/depression with recurrence SI no plan in place and auditory hallucinations with voices telling her to harm herself.? She was seen here yesterday for the same.? This is her 14 the ER visit since March 15 for psychiatric complaints.? She states she has been bouncing from ER to ER and recently went to [facility] as well.? She reports the voices are getting stronger or and all she wants to do is hurt herself.? She denies any recent attempts.? She has not cut herself today.? She wants to stay in the hospital.? She does not feel safe going home. She denies any drug or alcohol usage. She denies any other symptoms complaints or concerns at this time. MD complaint: suicidal ideation, feels depressed and anxiety Onset (ago): week(s) Duration: constant and getting worse History of same: Yes Relieving factors: none Exacerbating factors: none Associated psychiatric symptoms: depression and suicidal ideation Associated symptoms: denies other symptoms Treatments prior to arrival: none Related Data Home Medications Medication Instructions Recorded Confirmed atorvastatin 10 mg tablet 1 tab PO DAILY 05/29/21 04/24/22 fluticasone propionate 110 2 puff inhalation BID 05/29/21 04/24/22 mcg/actuation HFA aerosol inhaler (Flovent HFA) metformin 500 mg tablet 1 tab PO BID 05/29/21 04/24/22 montelukast 10 mg tablet 1 tab PO BEDTIME 05/29/21 04/24/22 verapamil 240 mg tablet,extended 240 mg PO BEDTIME 05/29/21 04/24/22 release albuterol sulfate 90 mcg/actuation 2 puff inhalation Q4H PRN 06/15/21 04/24/22 aerosol inhaler (Ventolin HFA) Shortness Of Breath trazodone 150 mg tablet 150 mg PO BEDTIME PRN insomnia 11/05/21 04/24/22 lisinopril 5 mg tablet 1 tab PO DAILY 11/14/21 04/24/22 benztropine 1 mg tablet 1 mg PO DAILY 12/26/21 04/24/22 naproxen 500 mg tablet 1 tab PO BID 01/23/22 04/24/22 fluphenazine HCl 2.5 mg tablet 1 tab PO BEDTIME 03/19/22 04/24/22 fluphenazine HCl 5 mg tablet 1 tab PO BEDTIME 03/19/22 04/24/22 Previous Rx's Medication Instructions Recorded fluoxetine 20 mg capsule 40 mg PO DAILY 30 days #60 caps 09/29/21 mirtazapine 7.5 mg tablet 7.5 mg PO BEDTIME MRX1 30 days #60 10/18/21 tabs prazosin 1 mg capsule 4 mg PO BEDTIME 30 days #120 caps 10/18/21 ondansetron 4 mg disintegrating 4 mg PO Q6-8H PRN nausea and 02/04/22 tablet vomiting #14 tabs docusate sodium 100 mg capsule 100 mg PO BID Constipation #60 caps 02/07/22 (Colace) benzonatate 200 mg capsule 200 mg PO TID PRN cough #20 caps 03/21/22 Allergies Allergy/AdvReac Type Severity Reaction Status Date / Time Fish Containing Products Allergy Severe ANAPHYLAXIS Verified 04/20/22 16:42 codeine [Codeine] Allergy Unknown RASH Verified 04/20/22 16:42 Penicillins Allergy Unknown RASH Verified 04/20/22 16:42 prednisone [Prednisone] Allergy Unknown RASH Verified 04/20/22 16:42 Sulfa (Sulfonamide Allergy Unknown RASH Verified 04/20/22 16:42 Antibiotics) [Sulfa (Sulfonamides)] azithromycin [AZITHROMYCIN] AdvReac Severe RASH Verified 04/20/22 16:42 nicotine AdvReac Unknown HEART Verified 04/20/22 16:42 PALPITATION TO NICOTINE GUM Seafood Allergy Severe ANAPHYLAXIS Uncoded 11/05/21 21:13 From Geodon Allergy Unknown DYSURIA, Uncoded 11/05/21 21:13 RASH Review of Systems Review of Systems: Constitutional : No Fever, No Chills ENT/Mouth : No Ear Pain, No Nasal Congestion, No sore throat Eyes: No Eye Pain, No Swelling, No Redness Cardiovascular : No Chest Pain, No SOB Respiratory : No Cough, No Sputum, No Dyspnea Gastrointestinal : No ingestions, No Nausea, No Vomiting, No Diarrhea, No Hematochezia, No Melena Genitourinary : No Dysuria, No Urinary Frequency, No Hematuria Musculoskeletal : No Myalgias Skin : No Skin Lesions, No rash Neuro : No Weakness, No Numbness, No Paresthesias, No Dizziness, No Headache Psych : + Anxiety, + Depression, + SI, + thoughts of self injury, No HI, + AVH, Heme/Lymph: No Lymphadenopathy Endocrine : No Polyuria, No Polydipsia Yes all other systems are reviewed and are negative [facility] Past Medical History Attestation statement: The following information was validated with the patient. Source: old records reviewed and nursing notes reviewed Medical History Acetaminophen overdose Borderline personality disorder Bronchitis Depression Diabetes type 2, controlled GERD (gastroesophageal reflux disease) History of attempted suicide History of non-suicidal self-harm Hyperlipidemia Hypomagnesemia MDD (major depressive disorder), recurrent episode, severe Mood disorder Overdose PTSD (post-traumatic stress disorder) Suicide attempt Suicide attempt by acetaminophen overdose Social History Social History 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: None 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 Other:: Patient lives in snf. 4 in total live in snf. Housing: Other Housing Other:: snf Do you presently have visiting nurse or other home services: No Unable to assess alcohol history related to: Unknown Alcohol intake: never Patient Tobacco Use Status: Current everyday Tobacco user Tobacco use type: Cigarette Cigarette Packs Per Day: 1 Cigarettes Per Day: 20 Years Smoked: 20 e-Cigarette/Vaping Use: Never Used Substance Use Type: Marijuana Advance Directives: No Advance Directives Information Provided: No service: No Current occupational status: disabled Sexual orientation: Don't Know Physical Exam Vital Signs: Vital Signs: Last Vital Signs Temp 97.8 F 04/24/22 18:09 Pulse 92 04/24/22 18:09 Resp 18 04/24/22 18:09 BP 152/80 H 04/24/22 18:09 Pulse Ox 95 04/24/22 18:09 O2 Del Method 04/24/22 18:09 BMI result Body Mass Index 41.5 vital signs have been reviewed as normal and appeared to be correct. Blood pressure 152/80. Heart rate normal. Respiration rate normal. Temperature normal. Oxygen saturation normal. Appearance: Alert. Oriented X3. No acute distress. Head: Normal external exam. Normocephalic. Atraumatic. Eyes: PERRLA. EOMI. Conjunctiva and sclera normal. Eyelids normal. ENT: Pharynx normal. Uvula midline. Moist mucous membranes. No trismus noted. No drooling noted. No muffled voice noted. Neck: Normal inspection. Neck supple. FROM. No adenopathy. Thyroid Normal. No meningeal signs. No neck mass noted. CVS: Normal heart rate and rhythm. Heart sound normal. No murmurs noted. Pulses normal throughout. Respiratory: No respiratory distress. Painless inspiration. Breath sounds normal. No wheezes/rales/rhonchi noted. Chest nontender. No accessory muscle usage noted or decreased air movement noted. Abdomen: Soft and nontender. Bowel sounds normal in all 4 quadrants. No distention noted. No organomegaly noted. No visible injury noted. Back: No CVA tenderness. Full range of motion noted. Skin: Skin warm and dry. Normal skin color. Normal skin turgor. No rashes/lesions/lacerations noted. Extremities: No lower extremity edema. Extremities exhibit normal range of motion. Extremities nontender. Neuro: Oriented X 3. No motor deficit. No sensory deficit. Reflexes normal. CN's II-XII intact bilaterally? Psych: Appearance grossly normal, well-kept, mental status normal, speech and movement normal, speech clear, patient appears very sad and anxious along with depressed. Is cooperative. Course Course Course Narrative: 18pm - 46-year-old female with a history of borderline personality does disorder, depression, anxiety bipolar 2 with melancholic features, PTSD, DM, GERD who presents to the ER with recurrence SI and auditory hallucinations with voices telling her to harm herself.? She was seen here yesterday for the same.? This is her 13 the ER visit since March 15 for psychiatric complaints.? She states she has been bouncing from ER to ER and recently went to [facility] as well.? She reports the voices are getting stronger or and all she wants to do is hurt herself.? She denies any recent attempts.? She has not cut herself today.? She wants to stay in the hospital.? She does not feel safe going home. Plan: Will obtain labs, UA, urine drug screen, COVID swab then obtain a crisis evaluation re-evaluate. Reevaluation(s) Reevaluation #1: - UA return at this time and patient noted to have positive leukocytes negative nitrates although she has a history of growing E coli therefore urine culture pending will start patient on Macrobid b.i.d. for 7 days for UTI. - patient positive for fentanyl negative for all other drugs. - patient negative for COVID. - all other labs have not been collected. - although patient medically cleared and I discussed this case with Nicole from the care team and she reported that the patient was seen in the community and sent here to be a follow-up tomorrow therefore will continue to monitor until them. Patient is placed in Physician observation. Time: 19:45 Reevaluation #2: Patient now requesting to be discharged. She denies any SI/HI/auditory visual ization or thoughts of self injury. Therefore Nicole spoke to [facility] and they reported that they seen in the community and they are going to continue with her plan therefore she can be safely discharged back to the snf. Patient understands agrees with this plan. Time: 21:41 [facility] - Psych Medical Records Attestation: I reviewed the patient's medical records. Lab Data Attestation: I reviewed the patient's lab results. Labs: Lab Results 04/24/22 04/24/22 04/24/22 Range/Units 18:08 18:08 18:16 Urine Color YELLOW Urine Appearance CLEAR Urine pH 6.0 (5.0-8.0) Ur Specific Breese <= 1.005 (1.005-1.025) Urine Protein NEG (NEG-TRACE) MG/DL Urine Glucose (UA) NEG (NEG) MG/DL Urine Ketones NEG (NEG) MG/DL Urine Blood NEG (NEG) Urine Nitrite NEG (NEG) Ur Leukocyte Esterase 1+ H (NEG) Urine RBC 0-2 (0) /HPF Urine WBC 1-4 (0-4) /HPF Ur Squamous Epith Cells 1+ /LPF Urine Bacteria 2+ /LPF Urine Opiates Screen Not Detected (Not Detect) Urine Fentanyl Screen POSITIVE H (Not Detect) Ur Barbiturates Screen Not Detected (Not Detect) Ur Phencyclidine Scrn Not Detected (Not Detect) Ur Amphetamines Screen Not Detected (Not Detect) U Benzodiazepines Scrn Not Detected (Not Detect) Urine Cocaine Screen Not Detected (Not Detect) U Marijuana (THC) Screen Not Detected (Not Detect) COVID-19 (NICK) Negative (Negative) COVID-19 Clin Com See Note Discharge Plan Discharge Clinical Impression: Borderline personality disorder Patient Disposition: Home, Self-Care Instructions: Borderline Personality Disorder (DC) Prescriptions: No Action metformin 500 mg tablet 1 tab PO BID atorvastatin 10 mg tablet 1 tab PO DAILY verapamil 240 mg tablet extended release 240 mg PO BEDTIME montelukast 10 mg tablet 1 tab PO BEDTIME fluticasone propionate [Flovent HFA] 110 mcg/actuation HFA aerosol inhaler 2 puff inhalation BID albuterol sulfate [Ventolin HFA] 90 mcg/actuation HFA aerosol inhaler 2 puff inhalation Q4H PRN (Reason: Shortness Of Breath) trazodone 150 mg tablet 150 mg PO BEDTIME PRN (Reason: insomnia) benztropine 1 mg tablet 1 mg PO DAILY naproxen 500 mg tablet 1 tab PO BID docusate sodium [Colace] 100 mg capsule 100 mg PO BID Qty: 60 0RF benzonatate 200 mg capsule 200 mg PO TID PRN (Reason: cough) Qty: 20 0RF fluoxetine 20 mg Capsule 40 mg PO DAILY 30 Days Qty: 60 0RF prazosin 1 mg Capsule 4 mg PO BEDTIME 30 Days Qty: 120 0RF Protocol: Hold for SBP< HOLD for SBP < : 90 mirtazapine 7.5 mg Tablet 7.5 mg PO BEDTIME MRX1 30 Days Qty: 60 0RF lisinopril 5 mg tablet 1 tab PO DAILY ondansetron 4 mg tablet,disintegrating 4 mg PO Q6-8H PRN (Reason: nausea and vomiting) Qty: 14 0RF fluphenazine HCl 2.5 mg tablet 1 tab PO BEDTIME fluphenazine HCl 5 mg tablet 1 tab PO BEDTIME Referrals: Maribel Marquez NP [Primary Care Provider] - 1 week
[2022-04-24 18:09] VITALS: BP 120/80; BP 152/80; PULSE 90; PULSE 92; RESP 18; TEMP 36.6; O2SAT 95; O2SAT 98; BMI 41.5
[2022-04-24 18:29] LABS: Appearance Urine CLEAR; Color Urine YELLOW; Glucose Urine UA NEG (NEG); Leukocyte Esterase Urine 1+ (NEG); Nitrite Urine NEG (NEG); Specific Gravity - Urine <= 1.005 (1.005-1.025); UACC Culture Trigger YES; Urine Blood NEG (NEG); Urine Ketones NEG (NEG); Urine Protein NEG (NEG-TRACE)
[2022-04-24 18:42] LABS: Bacteria Urine 2+ /LPF; RBC Urine 0-2 /HPF (0); Squamous Epithelial Cell Urine 1+ /LPF
[2022-04-24 18:43] LABS: Amphetamine Screen Urine Not Detected (Not Detect); Barbiturates, Urine Not Detected (Not Detect); Benzodiazepines Screen Urine Not Detected (Not Detect); Cannabinoid Screen Urine Not Detected (Not Detect); Cocaine Screen Urine Not Detected (Not Detect); Fentanyl, urine POSITIVE (Not Detect); Opiate Screen Urine Not Detected (Not Detect); Phencyclidine Screen Urine Not Detected (Not Detect)
[2022-04-24 18:51] LABS: COVID-19 Test Negative (Negative); IDNOW Serial# 55D5AD1C
[2022-04-24] MEDS: Nitrofurantoin Monohyd/M-Cryst 100 MG CAPSULE PO (20:59)
--- NOTE | 2022-04-24 21:44 | MHC.CARE ---
Per [facility] - pt was evaluated at her shelter, disposition was for outpatient providers, pt reportedly refused to stay at her shelter and was transferred to the hospital. [facility] tipple supervisor Cara reported that the pt does not need a re-evaluation from them unless requested by the ED provider or if pt's symptoms persist/worsen. On arrival to the ED the pt was advocating that she not be discharged back to her shelter, stating that she has been in and out of EDs for the past several days and that the voices have been bad lately. Pt later started requesting to return home. Denied SI/HI, no self harm urges, reported that the voices have lessened, and feels that she was panicking earlier and that's why she wanted to come to the hospital. ED provider updated re: encounter. Plan is for discharge.
== END 2022-04-24 22:05 | disposition home or self-care (01) ==
PROVIDERS: Physician Assistant Medical; Emergency Provider Internal Medicine; PCP Nurse Practitioner Family
DX: F33.1 Major depressive disorder, recurrent, moderate (principal); R45.851 Suicidal ideations; Z79.899 Other long term (current) drug therapy; F17.210 Nicotine dependence, cigarettes, uncomplicated; Z71.6 Tobacco abuse counseling; Z20.822 Contact with and (suspected) exposure to COVID-19
CPT/HCPCS: 80307; 81001; 87086; 87635; 99282; 99284

== ENCOUNTER 2022-04-25 21:12 | Emergency (ER) | payer MEDICARE, MEDICAID, SELFPAY ==
[2022-04-25 21:25] VITALS: BP 147/88; PULSE 104; RESP 18; TEMP 36.3; O2SAT 97; BMI 40.7
[2022-04-25 22:06] LABS: COVID-19 Test Negative (Negative)
[2022-04-25 22:14] LABS: Amphetamine Screen Urine Not Detected (Not Detect); Barbiturates, Urine Not Detected (Not Detect); Benzodiazepines Screen Urine Not Detected (Not Detect); Cannabinoid Screen Urine Not Detected (Not Detect); Cocaine Screen Urine Not Detected (Not Detect); Fentanyl, urine Not Detected (Not Detect); Opiate Screen Urine Not Detected (Not Detect); Phencyclidine Screen Urine Not Detected (Not Detect)
--- NOTE | 2022-04-26 00:47 | ED_ITS ---
HPI - Psych General Chief Complaint: Psychiatric Symptoms Stated Complaint: crisis Source: patient Mode of arrival: ambulatory Limitations: no limitations History of Present Illness HPI Narrative: 46 yold female pmh of psych presents to the ED for suicidal ideation. patient is a regular patient to this ED and comes for SI. states no physical complints Related Data Home Medications Medication Instructions Recorded Confirmed atorvastatin 10 mg tablet 1 tab PO DAILY 05/29/21 04/25/22 fluticasone propionate 110 2 puff inhalation BID 05/29/21 04/25/22 mcg/actuation HFA aerosol inhaler (Flovent HFA) metformin 500 mg tablet 1 tab PO BID 05/29/21 04/25/22 montelukast 10 mg tablet 1 tab PO BEDTIME 05/29/21 04/25/22 verapamil 240 mg tablet,extended 240 mg PO BEDTIME 05/29/21 04/25/22 release albuterol sulfate 90 mcg/actuation 2 puff inhalation Q4H PRN 06/15/21 04/25/22 aerosol inhaler (Ventolin HFA) Shortness Of Breath trazodone 150 mg tablet 150 mg PO BEDTIME PRN insomnia 11/05/21 04/25/22 lisinopril 5 mg tablet 1 tab PO DAILY 11/14/21 04/25/22 benztropine 1 mg tablet 1 mg PO DAILY 12/26/21 04/25/22 naproxen 500 mg tablet 1 tab PO BID 01/23/22 04/25/22 fluphenazine HCl 2.5 mg tablet 1 tab PO BEDTIME 03/19/22 04/25/22 fluphenazine HCl 5 mg tablet 1 tab PO BEDTIME 03/19/22 04/25/22 Previous Rx's Medication Instructions Recorded fluoxetine 20 mg capsule 40 mg PO DAILY 30 days #60 caps 09/29/21 mirtazapine 7.5 mg tablet 7.5 mg PO BEDTIME MRX1 30 days #60 10/18/21 tabs prazosin 1 mg capsule 4 mg PO BEDTIME 30 days #120 caps 10/18/21 ondansetron 4 mg disintegrating 4 mg PO Q6-8H PRN nausea and 02/04/22 tablet vomiting #14 tabs docusate sodium 100 mg capsule 100 mg PO BID Constipation #60 caps 02/07/22 (Colace) benzonatate 200 mg capsule 200 mg PO TID PRN cough #20 caps 03/21/22 Allergies Allergy/AdvReac Type Severity Reaction Status Date / Time Fish Containing Products Allergy Severe ANAPHYLAXIS Verified 04/20/22 16:42 codeine [Codeine] Allergy Unknown RASH Verified 04/20/22 16:42 Penicillins Allergy Unknown RASH Verified 04/20/22 16:42 prednisone [Prednisone] Allergy Unknown RASH Verified 04/20/22 16:42 Sulfa (Sulfonamide Allergy Unknown RASH Verified 04/20/22 16:42 Antibiotics) [Sulfa (Sulfonamides)] azithromycin [AZITHROMYCIN] AdvReac Severe RASH Verified 04/20/22 16:42 nicotine AdvReac Unknown HEART Verified 04/20/22 16:42 PALPITATION TO NICOTINE GUM Seafood Allergy Severe ANAPHYLAXIS Uncoded 11/05/21 21:13 From Geodon Allergy Unknown DYSURIA, Uncoded 11/05/21 21:13 RASH Review of Systems Review of Systems: SI Yes all other systems are reviewed and are negative PMFSH Past Medical History Medical History Acetaminophen overdose Borderline personality disorder Bronchitis Depression Diabetes type 2, controlled GERD (gastroesophageal reflux disease) History of attempted suicide History of non-suicidal self-harm Hyperlipidemia Hypomagnesemia MDD (major depressive disorder), recurrent episode, severe Mood disorder Overdose PTSD (post-traumatic stress disorder) Suicide attempt Suicide attempt by acetaminophen overdose Social History Social History 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: None 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 Other:: Patient lives in nursing home. 4 in total live in nursing home. Housing: Other Housing Other:: nursing home Do you presently have visiting nurse or other home services: No Unable to assess alcohol history related to: Unknown Alcohol intake: never Patient Tobacco Use Status: Current everyday Tobacco user Tobacco use type: Cigarette Cigarette Packs Per Day: 1 Cigarettes Per Day: 20 Years Smoked: 20 e-Cigarette/Vaping Use: Never Used Substance Use Type: Marijuana Advance Directives: No Advance Directives Information Provided: No service: No Current occupational status: disabled Sexual orientation: Don't Know Physical Exam Vital Signs: Vital Signs: Last Vital Signs Temp 96.9 F 04/26/22 01:31 Pulse 79 04/26/22 01:31 Resp 16 04/26/22 01:31 BP 139/73 04/26/22 01:31 Pulse Ox 100 07/13/22 01:31 O2 Del Method 04/26/22 01:31 BMI result Body Mass Index 40.7 Const: General: cooperative, healthy appearing, comfortable, no acute distress, well developed, alert, awake and Physically active Orientation/consciousness: oriented to time and patient oriented x3 HEENT: Head: Yes normal to inspection, Yes No palpable skull fracture present, Yes normocephalic, Yes atraumatic and No abrasion Eyes: General: appearance normal, both eyes and all related structures Neck: Neck: Yes normal visual inspection, Yes full ROM, Yes no lymphadenopathy, Yes no meningeal signs, Yes trachea midline, Yes supple, No anterior neck swelling and No tender Chest: Chest palpation & inspection: normal inspection of the chest and normal palpation of entire chest wall Resp: Effort & Inspection: normal respiratory effort and able to speak in complete sentences Auscultation: clear to auscultation bilaterally Cardio: Jugular venous distension: no JVD Heart sounds: S1 normal heart sound present and S2 normal heart sound present GI: Inspection: Yes normal to inspection and No abdominal wall ecchymosis Palpation (GI): Soft to palpation, not firm, nontender, no guarding and not rigid : General: No CVA tenderness and Yes no CVA tenderness Back/Spine/Pelvis: Back: no CVA tenderness, No CVA tenderness and No back tenderness Skin: General skin exam: no rashes or lesions noted and elasticity normal Neuro: General: oriented to time, patient oriented x3, gait normal, tone normal, no meningeal signs and CN's II-XI intact bilaterally Cranial nerves: Yes CN's II-XII intact bilaterally Extrem: General: Yes normal to inspection and Yes full ROM Psych: Appearance: grossly normal, well kempt and not disheveled Course Course Course Narrative: UA and covid ordered Reevaluation(s) Reevaluation #1: Care team in the morning MDM - Psych MDM Narrative Medical decision making narrative: Depression Lab Data Labs: Lab Results 04/25/22 04/25/22 Range/Units 21:35 21:35 Urine Opiates Screen Not Detected (Not Detect) Urine Fentanyl Screen Not Detected (Not Detect) Ur Barbiturates Screen Not Detected (Not Detect) Ur Phencyclidine Scrn Not Detected (Not Detect) Ur Amphetamines Screen Not Detected (Not Detect) U Benzodiazepines Scrn Not Detected (Not Detect) Urine Cocaine Screen Not Detected (Not Detect) U Marijuana (THC) Screen Not Detected (Not Detect) COVID-19 (NICK) Negative (Negative) COVID-19 Clin Com See Note Discharge Plan Discharge Clinical Impression: Depression Patient Disposition: Still a Patient Instructions: Depression (ED) Prescriptions: No Action metformin 500 mg tablet 1 tab PO BID atorvastatin 10 mg tablet 1 tab PO DAILY verapamil 240 mg tablet extended release 240 mg PO BEDTIME montelukast 10 mg tablet 1 tab PO BEDTIME fluticasone propionate [Flovent HFA] 110 mcg/actuation HFA aerosol inhaler 2 puff inhalation BID albuterol sulfate [Ventolin HFA] 90 mcg/actuation HFA aerosol inhaler 2 puff inhalation Q4H PRN (Reason: Shortness Of Breath) trazodone 150 mg tablet 150 mg PO BEDTIME PRN (Reason: insomnia) benztropine 1 mg tablet 1 mg PO DAILY naproxen 500 mg tablet 1 tab PO BID docusate sodium [Colace] 100 mg capsule 100 mg PO BID Qty: 60 0RF benzonatate 200 mg capsule 200 mg PO TID PRN (Reason: cough) Qty: 20 0RF fluoxetine 20 mg Capsule 40 mg PO DAILY 30 Days Qty: 60 0RF prazosin 1 mg Capsule 4 mg PO BEDTIME 30 Days Qty: 120 0RF Protocol: Hold for SBP< HOLD for SBP < : 90 mirtazapine 7.5 mg Tablet 7.5 mg PO BEDTIME MRX1 30 Days Qty: 60 0RF lisinopril 5 mg tablet 1 tab PO DAILY ondansetron 4 mg tablet,disintegrating 4 mg PO Q6-8H PRN (Reason: nausea and vomiting) Qty: 14 0RF fluphenazine HCl 2.5 mg tablet 1 tab PO BEDTIME fluphenazine HCl 5 mg tablet 1 tab PO BEDTIME
[2022-04-26 01:31] VITALS: BP 139/73; PULSE 79; RESP 16; TEMP 36.1; O2SAT 100
--- NOTE | 2022-04-26 06:45 | PC.NURSE ---
Patient slept through the night, no distress observed/reported, med rec completed/pending providers approval, behavior appropriate, awaiting care team evaluation, patient requested discharge back to [facility], VSS, will continue to monitor.
--- NOTE | 2022-04-26 07:06 | PC.NURSE ---
patient appears to remain at rest, ambulates in [facility] asking appropriate questions about medicines and her activities this week . appears in no distress.
[2022-04-26 07:32] VITALS: BP 103/67; PULSE 79; RESP 13; TEMP 36.1; O2SAT 96
[2022-04-26 08:38] LABS: Appearance Urine CLEAR; Color Urine STRAW; Glucose Urine UA NEG (NEG); Leukocyte Esterase Urine NEG (NEG); Nitrite Urine NEG (NEG); PH 6.5 (5.0-8.0); Specific Gravity - Urine <= 1.005 (1.005-1.025); Urine Blood NEG (NEG); Urine Ketones NEG (NEG); Urine Protein NEG (NEG-TRACE)
--- NOTE | 2022-04-26 09:22 | MHC.CARE ---
CARE Team met with patient in [facility] for risk assessment, she came to the ED by ambulance last night and reported suicidal ideation though recanted that statement shortly after arrival. She stated that she feels better today and ready to go home, denied suicidal thoughts, plan or intention. Patient identified a new house mate as a source of stress that is leading her to feel anxious and triggered, leading her to desperate thoughts of wanting to or run off. She does verbalize an understanding that she is unable to control another persons behavior but only her own, discussed ways to self calm, distractions and external resources. Therapist is on vacation, she does have a peer support person that she can reach out to and a preferred staff is working later today so predicted she will have someone to talk to as needed tonight, will attend her day program tomorrow. Left message at [facility] (is only one staff working today) spoke to ED provider TIMI Sims about disposition to discharge home, [facility]ACHEAL arranged.
--- NOTE | 2022-04-26 16:24 | MHC.CARE ---
CARE Team placed call x2 to [facility], however no answer, message left.
== END 2022-04-26 09:26 | disposition home or self-care (01) ==
PROVIDERS: Physician Assistant; Emergency Provider Emergency Medicine; PCP Nurse Practitioner Family
DX: F33.1 Major depressive disorder, recurrent, moderate (principal); R45.851 Suicidal ideations; Z20.822 Contact with and (suspected) exposure to COVID-19; F17.210 Nicotine dependence, cigarettes, uncomplicated; Z71.6 Tobacco abuse counseling; Z79.899 Other long term (current) drug therapy
CPT/HCPCS: 80307; 81003; 87635; 99284

== ENCOUNTER 2022-04-30 13:43 | Emergency (ER) | payer MEDICARE, MEDICAID, SELFPAY ==
[2022-04-30 13:57] VITALS: BP 125/72; BP 134/86; PULSE 72; PULSE 80; RESP 16; TEMP 36.6; O2SAT 96; BMI 36.0
--- NOTE | 2022-04-30 14:46 | ED_ITS ---
HPI - Psych General Chief Complaint: Psychiatric Symptoms Stated Complaint: SI FROM [facility],CUT SELF,WANTS TO OD Source: patient Mode of arrival: ambulatory Limitations: no limitations History of Present Illness HPI Narrative: 46-year-old female known to this ED with significant psych history and comes usually for SI presents to ED for suicidal ideation and cutting of both extremities yesterday. Patient denies any physical complaints. patient states she does just want to eat food and wants to be evaluated by care team. Related Data Home Medications Medication Instructions Recorded Confirmed atorvastatin 10 mg tablet 1 tab PO DAILY 05/29/21 04/25/22 fluticasone propionate 110 2 puff inhalation BID 05/29/21 04/25/22 mcg/actuation HFA aerosol inhaler (Flovent HFA) metformin 500 mg tablet 1 tab PO BID 05/29/21 04/25/22 montelukast 10 mg tablet 1 tab PO BEDTIME 05/29/21 04/25/22 verapamil 240 mg tablet,extended 240 mg PO BEDTIME 05/29/21 04/25/22 release albuterol sulfate 90 mcg/actuation 2 puff inhalation Q4H PRN 06/15/21 04/25/22 aerosol inhaler (Ventolin HFA) Shortness Of Breath trazodone 150 mg tablet 150 mg PO BEDTIME PRN insomnia 11/05/21 04/25/22 lisinopril 5 mg tablet 1 tab PO DAILY 11/14/21 04/25/22 benztropine 1 mg tablet 1 mg PO DAILY 12/26/21 04/25/22 naproxen 500 mg tablet 1 tab PO BID 01/23/22 04/25/22 fluphenazine HCl 2.5 mg tablet 1 tab PO BEDTIME 03/19/22 04/25/22 fluphenazine HCl 5 mg tablet 1 tab PO BEDTIME 03/19/22 04/25/22 Previous Rx's Medication Instructions Recorded fluoxetine 20 mg capsule 40 mg PO DAILY 30 days #60 caps 09/29/21 mirtazapine 7.5 mg tablet 7.5 mg PO BEDTIME MRX1 30 days #60 10/18/21 tabs prazosin 1 mg capsule 4 mg PO BEDTIME 30 days #120 caps 10/18/21 ondansetron 4 mg disintegrating 4 mg PO Q6-8H PRN nausea and 02/04/22 tablet vomiting #14 tabs docusate sodium 100 mg capsule 100 mg PO BID Constipation #60 caps 02/07/22 (Colace) benzonatate 200 mg capsule 200 mg PO TID PRN cough #20 caps 03/21/22 Allergies Allergy/AdvReac Type Severity Reaction Status Date / Time Fish Containing Products Allergy Severe ANAPHYLAXIS Verified 04/20/22 16:42 codeine [Codeine] Allergy Unknown RASH Verified 04/20/22 16:42 Penicillins Allergy Unknown RASH Verified 04/20/22 16:42 prednisone [Prednisone] Allergy Unknown RASH Verified 04/20/22 16:42 Sulfa (Sulfonamide Allergy Unknown RASH Verified 04/20/22 16:42 Antibiotics) [Sulfa (Sulfonamides)] azithromycin [AZITHROMYCIN] AdvReac Severe RASH Verified 04/20/22 16:42 nicotine AdvReac Unknown HEART Verified 04/20/22 16:42 PALPITATION TO NICOTINE GUM Seafood Allergy Severe ANAPHYLAXIS Uncoded 11/05/21 21:13 From Geodon Allergy Unknown DYSURIA, Uncoded 11/05/21 21:13 RASH PMFSH Past Medical History Medical History Acetaminophen overdose Borderline personality disorder Bronchitis Depression Diabetes type 2, controlled GERD (gastroesophageal reflux disease) History of attempted suicide History of non-suicidal self-harm Hyperlipidemia Hypomagnesemia MDD (major depressive disorder), recurrent episode, severe Mood disorder Overdose PTSD (post-traumatic stress disorder) Suicide attempt Suicide attempt by acetaminophen overdose Social History Social History 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: None 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 Other:: [facility] lives in [facility]. 4 in total live in [facility]. Housing: Other Housing Other:: intermediate Do you presently have visiting nurse or other home services: No Unable to assess alcohol history related to: Unknown Alcohol intake: never Patient Tobacco Use Status: Current everyday Tobacco user Tobacco use type: Cigarette Cigarette Packs Per Day: 1 Cigarettes Per Day: 20 Years Smoked: 20 Smoked in Last 30 Days: Yes e-Cigarette/Vaping Use: Never Used Use of substances other than those prescribed or required for medical reasons: No Substance Use Type: Marijuana Advance Directives: No Advance Directives Information Provided: Yes service: No Current occupational status: disabled Sexual orientation: Don't Know Physical Exam Vital Signs: Vital Signs: Last Vital Signs Temp 98.1 F 04/30/22 15:30 Pulse 83 04/30/22 15:30 Resp 18 04/30/22 15:30 BP 165/86 H 04/30/22 15:30 Pulse Ox 99 04/30/22 15:30 O2 Del Method 04/30/22 15:30 BMI result Body Mass Index 36.0 Const: General: cooperative, healthy appearing, comfortable, no acute distress, well developed, alert, awake and Physically active Orientation/consciousness: patient oriented x3 HEENT: Head: Yes normal to inspection, Yes No palpable skull fracture present, Yes normocephalic, Yes atraumatic and No abrasion Eyes: General: appearance normal, both eyes and all related structures Neck: Neck: Yes normal visual inspection, Yes full ROM, Yes no lymphadenopathy, Yes no meningeal signs, Yes trachea midline, Yes supple, No anterior neck swelling and No tender Chest: Chest palpation & inspection: normal inspection of the chest and normal palpation of entire chest wall Resp: Effort & Inspection: normal respiratory effort and able to speak in complete sentences Auscultation: clear to auscultation bilaterally Cardio: Jugular venous distension: no JVD Heart sounds: S1 normal heart sound present and S2 normal heart sound present GI: Inspection: Yes normal to inspection and No abdominal wall ecchymosis Palpation (GI): Soft to palpation, not firm, nontender, no guarding and not rigid : General: No CVA tenderness and Yes no CVA tenderness Back/Spine/Pelvis: Back: no CVA tenderness, No CVA tenderness and No back tenderness Skin: General skin exam: no rashes or lesions noted and elasticity normal Neuro: General: patient oriented x3, gait normal, no meningeal signs and CN's II-XI intact bilaterally Cranial nerves: Yes CN's II-XII intact bilaterally Extrem: Other: Bilateral forearm abrasions caused by self cutting yesterday. No active bleeding. Motor/ nerve/vascular examined General: Yes normal to inspection and Yes full ROM Psych: Appearance: grossly normal, well kempt and not disheveled Course Course Course Narrative: patient to be evaluated by care team. patient uptodate with tetanus MDM - Psych MDM Narrative Medical decision making narrative: Depression Discharge Plan Discharge Clinical Impression: Depression Patient Disposition: Still a Patient Prescriptions: No Action metformin 500 mg tablet 1 tab PO BID atorvastatin 10 mg tablet 1 tab PO DAILY verapamil 240 mg tablet extended release 240 mg PO BEDTIME montelukast 10 mg tablet 1 tab PO BEDTIME fluticasone propionate [Flovent HFA] 110 mcg/actuation HFA aerosol inhaler 2 puff inhalation BID albuterol sulfate [Ventolin HFA] 90 mcg/actuation HFA aerosol inhaler 2 puff inhalation Q4H PRN (Reason: Shortness Of Breath) trazodone 150 mg tablet 150 mg PO BEDTIME PRN (Reason: insomnia) benztropine 1 mg tablet 1 mg PO DAILY naproxen 500 mg tablet 1 tab PO BID docusate sodium [Colace] 100 mg capsule 100 mg PO BID Qty: 60 0RF benzonatate 200 mg capsule 200 mg PO TID PRN (Reason: cough) Qty: 20 0RF fluoxetine 20 mg Capsule 40 mg PO DAILY 30 Days Qty: 60 0RF prazosin 1 mg Capsule 4 mg PO BEDTIME 30 Days Qty: 120 0RF Protocol: Hold for SBP< HOLD for SBP < : 90 mirtazapine 7.5 mg Tablet 7.5 mg PO BEDTIME MRX1 30 Days Qty: 60 0RF lisinopril 5 mg tablet 1 tab PO DAILY ondansetron 4 mg tablet,disintegrating 4 mg PO Q6-8H PRN (Reason: nausea and vomiting) Qty: 14 0RF fluphenazine HCl 2.5 mg tablet 1 tab PO BEDTIME fluphenazine HCl 5 mg tablet 1 tab PO BEDTIME
[2022-04-30 15:30] VITALS: BP 165/86; PULSE 83; RESP 18; TEMP 36.7; O2SAT 99
--- NOTE | 2022-04-30 15:31 | PC.NURSE ---
patient a&ox3, denies pain/discomfort, pt states she still has SI thoughts, awaiting to be seen by psych, sitter at bedside, will continue to monitor.
--- NOTE | 2022-04-30 18:23 | MHC.CARE ---
CARE team met with pt to assess level of risk for harm to self and others. Pt is well known to this story writer, the CARE team, and this facility from numerous past ED visits with similar presentation. Pt called EMS for transport to the hospital s/p AVH, suicidal ideation, and experiencing a panic attack. Pt engaged in self injury via superficial lacerations to her arm yesterday. Pt reported that she is feeling better and wishes to return [facility]. She expressed feeling confused as to why she's been having such bad anxiety recently and was asking how she can manage it. This story writer recommended that the pt work with her therapist on this. Pt reported that she hasn't had a full therapy appointment in a long time, typically only seeing her therapist at the day program, and joked that it's likely because she's always in the hospital. This is certainly true. Pt shared that she will be moving to a different room in her penitentiary that is on the second floor, has an alarm outside of the room, and the door doesn't lock. Despite those changes, she appears to be excited about the impending move. Pt does not require any further assessment or intervention at this time. Recommendation is for discharge back to her residential program.
== END 2022-04-30 18:50 | disposition home or self-care (01) ==
PROVIDERS: Emergency Provider Emergency Medicine
DX: F33.1 Major depressive disorder, recurrent, moderate (principal); R45.851 Suicidal ideations; F12.90 Cannabis use, unspecified, uncomplicated; F17.210 Nicotine dependence, cigarettes, uncomplicated; Z71.6 Tobacco abuse counseling; Z79.899 Other long term (current) drug therapy
CPT/HCPCS: 99284

== ENCOUNTER 2022-05-01 18:27 | Emergency (ER) | payer MEDICARE, MEDICAID, SELFPAY ==
[2022-05-01 18:39] VITALS: BP 140/90; PULSE 120; O2SAT 98
--- NOTE | 2022-05-01 18:40 | ED.PSYCH ---
HPI - Psych General Chief Complaint: Psychiatric Symptoms Stated Complaint: CRISIS,SI W/PLAN TO OD ON ASA Time Seen by Provider: 05/01/22 18:34 Source: patient and EMS Mode of arrival: EMS Limitations: no limitations History of Present Illness HPI Narrative: Patient comes to the emergency room complaining of suicidal ideation. Today is the patient's 13th visit in 1 month for similar complaints. Patient states that she did not use any medications, she did not cut, only had the thought of overdosing with aspirin. Related Data Home Medications Medication Instructions Recorded Confirmed atorvastatin 10 mg tablet 1 tab PO DAILY 05/29/21 04/25/22 fluticasone propionate 110 2 puff inhalation BID 05/29/21 04/25/22 mcg/actuation HFA aerosol inhaler (Flovent HFA) metformin 500 mg tablet 1 tab PO BID 05/29/21 04/25/22 montelukast 10 mg tablet 1 tab PO BEDTIME 05/29/21 04/25/22 verapamil 240 mg tablet,extended 240 mg PO BEDTIME 05/29/21 04/25/22 release albuterol sulfate 90 mcg/actuation 2 puff inhalation Q4H PRN 06/15/21 04/25/22 aerosol inhaler (Ventolin HFA) Shortness Of Breath trazodone 150 mg tablet 150 mg PO BEDTIME PRN insomnia 11/05/21 04/25/22 lisinopril 5 mg tablet 1 tab PO DAILY 11/14/21 04/25/22 benztropine 1 mg tablet 1 mg PO DAILY 12/26/21 04/25/22 naproxen 500 mg tablet 1 tab PO BID 01/23/22 04/25/22 fluphenazine HCl 2.5 mg tablet 1 tab PO BEDTIME 03/19/22 04/25/22 fluphenazine HCl 5 mg tablet 1 tab PO BEDTIME 03/19/22 04/25/22 Previous Rx's Medication Instructions Recorded fluoxetine 20 mg capsule 40 mg PO DAILY 30 days #60 caps 09/29/21 mirtazapine 7.5 mg tablet 7.5 mg PO BEDTIME MRX1 30 days #60 10/18/21 tabs prazosin 1 mg capsule 4 mg PO BEDTIME 30 days #120 caps 10/18/21 ondansetron 4 mg disintegrating 4 mg PO Q6-8H PRN nausea and 02/04/22 tablet vomiting #14 tabs docusate sodium 100 mg capsule 100 mg PO BID Constipation #60 caps 02/07/22 (Colace) benzonatate 200 mg capsule 200 mg PO TID PRN cough #20 caps 03/21/22 Allergies Allergy/AdvReac Type Severity Reaction Status Date / Time Fish Containing Products Allergy Severe ANAPHYLAXIS Verified 04/20/22 16:42 codeine [Codeine] Allergy Unknown RASH Verified 04/20/22 16:42 Penicillins Allergy Unknown RASH Verified 04/20/22 16:42 prednisone [Prednisone] Allergy Unknown RASH Verified 04/20/22 16:42 Sulfa (Sulfonamide Allergy Unknown RASH Verified 04/20/22 16:42 Antibiotics) [Sulfa (Sulfonamides)] azithromycin [AZITHROMYCIN] AdvReac Severe RASH Verified 04/20/22 16:42 nicotine AdvReac Unknown HEART Verified 04/20/22 16:42 PALPITATION TO NICOTINE GUM Seafood Allergy Severe ANAPHYLAXIS Uncoded 11/05/21 21:13 From Geodon Allergy Unknown DYSURIA, Uncoded 11/05/21 21:13 RASH Review of Systems Review of Systems: Constitutional : No Weight loss, No Fever, No Chills, No Night Sweats, No Fatigue, No Malaise ENT/Mouth : No Hearing loss, No Ear Pain, No Nasal Congestion, No Sinus Pain, No Hoarseness, No sore throat, No Rhinorrhea, No Swallowing Difficulty Eyes: No Eye Pain, No Swelling, No Redness, No Foreign Body, No Discharge, No Vision Changes Cardiovascular : No Chest Pain, No SOB, No Dyspnea on Exertion, No Orthopnea, No Edema, No Palpitations Respiratory : No Cough, No Sputum, No Wheezing, No Smoke Exposure, No Dyspnea Gastrointestinal : No Nausea, No Vomiting, No Diarrhea, No Constipation, No abdominal Pain, No Hematochezia, No Melena Genitourinary : no irregular bleeding, No Dysuria, No Urinary Frequency, No Hematuria, No Urinary Incontinence, No Urgency, No Flank Pain, No Urinary Flow Changes, No Hesitancy Musculoskeletal : No joint pain, No Myalgias, No Joint Swelling Skin : No Skin Lesions, No rash Neuro : No Weakness, No Numbness, No Paresthesias, No Loss of Consciousness, No Dizziness, No Headache Psych : Complaining of anxiety and depression, suicidal ideation, no homicidal ideation Heme/Lymph: No Bruising, No Bleeding,No Lymphadenopathy Endocrine : No Polyuria, No Polydipsia, No Temperature Intolerance [facility] Past Medical History Medical History Acetaminophen overdose Borderline personality disorder Bronchitis Depression Diabetes type 2, controlled GERD (gastroesophageal reflux disease) History of attempted suicide History of non-suicidal self-harm Hyperlipidemia Hypomagnesemia MDD (major depressive disorder), recurrent episode, severe Mood disorder Overdose PTSD (post-traumatic stress disorder) Suicide attempt Suicide attempt by acetaminophen overdose Social History Social History 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: None 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 Other:: Patient lives in intermediate. 4 in total live in intermediate. Housing: Other Housing Other:: intermediate Do you presently have visiting nurse or other home services: No Unable to assess alcohol history related to: Unknown Alcohol intake: never Patient Tobacco Use Status: Current everyday Tobacco user Tobacco use type: Cigarette Cigarette Packs Per Day: 1 Cigarettes Per Day: 20 Years Smoked: 20 e-Cigarette/Vaping Use: Never Used Substance Use Type: Marijuana Advance Directives: No Advance Directives Information Provided: No service: No Current occupational status: disabled Sexual orientation: Don't Know Physical Exam Vital Signs: Vital Signs: Last Vital Signs Temp 97.8 F 05/01/22 18:45 Pulse 78 05/01/22 18:45 Resp 16 05/01/22 18:45 BP 117/71 05/01/22 18:45 Pulse Ox 97 05/01/22 18:45 O2 Del Method 05/01/22 18:45 BMI result Body Mass Index 34.9 Const: Other: Appearance: Alert. Oriented X3. No acute distress. Eyes: Pupils equal, round and reactive to light. ENT: Pharynx normal. Neck: Normal inspection. Neck supple. No lymph nodes noted. No crepitus CVS: Normal heart rate and rhythm. Pulses normal. Normal S1 and S2 Respiratory: No respiratory distress. Breath sounds normal. No Wheezing. No rales Abdomen: Soft and nontender. No rigidity. No distention. Skin: Skin warm and dry. Normal skin color. Normal skin turgor. Extremities: No lower extremity edema. No Lacerations. No Rash Neuro: Oriented X 3. No motor deficit. No sensory deficit. Moving all extremities. No slurred speech. CN 2 through 12 grossly intact Psych: calm, cooperative, normal affect Course Course Course Narrative: Patient is well-known to the behavioral health service. Patient observe patient started at 18:46 19:50, [facility]. Patient states that she is no longer suicidal, it was a small impulsive thought she had earlier today which is gone now. Patient ready for discharge Discharge Plan Discharge Clinical Impression: Acute anxiety Patient Disposition: Home, Self-Care Instructions: Anxiety (ED) Additional Instructions: Please follow-up with your primary care physician tomorrow. If you have any worsening or new symptoms, please return to the emergency room or call 911 Prescriptions: No Action metformin 500 mg tablet 1 tab PO BID atorvastatin 10 mg tablet 1 tab PO DAILY verapamil 240 mg tablet extended release 240 mg PO BEDTIME montelukast 10 mg tablet 1 tab PO BEDTIME fluticasone propionate [Flovent HFA] 110 mcg/actuation HFA aerosol inhaler 2 puff inhalation BID albuterol sulfate [Ventolin HFA] 90 mcg/actuation HFA aerosol inhaler 2 puff inhalation Q4H PRN (Reason: Shortness Of Breath) trazodone 150 mg tablet 150 mg PO BEDTIME PRN (Reason: insomnia) benztropine 1 mg tablet 1 mg PO DAILY naproxen 500 mg tablet 1 tab PO BID docusate sodium [Colace] 100 mg capsule 100 mg PO BID Qty: 60 0RF benzonatate 200 mg capsule 200 mg PO TID PRN (Reason: cough) Qty: 20 0RF fluoxetine 20 mg Capsule 40 mg PO DAILY 30 Days Qty: 60 0RF prazosin 1 mg Capsule 4 mg PO BEDTIME 30 Days Qty: 120 0RF Protocol: Hold for SBP< HOLD for SBP < : 90 mirtazapine 7.5 mg Tablet 7.5 mg PO BEDTIME MRX1 30 Days Qty: 60 0RF lisinopril 5 mg tablet 1 tab PO DAILY ondansetron 4 mg tablet,disintegrating 4 mg PO Q6-8H PRN (Reason: nausea and vomiting) Qty: 14 0RF fluphenazine HCl 2.5 mg tablet 1 tab PO BEDTIME fluphenazine HCl 5 mg tablet 1 tab PO BEDTIME
[2022-05-01 18:45] VITALS: BP 117/71; PULSE 78; RESP 16; TEMP 36.6; O2SAT 97; BMI 34.9
--- NOTE | 2022-05-01 19:51 | MHC.CARE ---
Pt is very familiar to CARE Team. Pt requests to speak with TW, flagging down director social in the ED. Pt states that earlier today she had thought about overdosing intentionally. Though pt does have a hx of intentional overdoses, she experiences SI at her baseline. Pt reports that this urge to overdose was fleeting, and she currently feels safe to d/c. She reports that she would not go out at night to see OTC meds. She is future oriented, excited about her room being moved up stairs, where she will feel safer and closer to staff. Pt appears upbeat with full affect. VM left for GH. Recommendation to d/c discussed with Dr. Ryan who agrees with this plan. CARE obtains LYFT ride for pt.
--- NOTE | 2022-05-01 19:57 | PC.NURSE ---
PT WAS ASSESSED BY OUR CARE TEAM. PLAN IS FOR DISCHARGE HOME. PT IS IN BEHAVIORAL CONTROL. AGREES WITH DISCHARGE PLAN.
== END 2022-05-01 20:01 | disposition home or self-care (01) ==
PROVIDERS: Emergency Provider Emergency Medicine; PCP Nurse Practitioner Family
DX: F33.1 Major depressive disorder, recurrent, moderate (principal); R45.851 Suicidal ideations; F41.1 Generalized anxiety disorder; F43.0 Acute stress reaction; F17.210 Nicotine dependence, cigarettes, uncomplicated; Z71.6 Tobacco abuse counseling; Z79.899 Other long term (current) drug therapy
CPT/HCPCS: 99281

== ENCOUNTER 2022-05-01 21:33 | Inpatient (IN) | payer MEDICARE, MEDICAID, SELFPAY ==
[2022-05-01 08:00] VITALS: BMI 38.0
--- NOTE | 2022-05-01 21:43 | ECG_ITS ---
Test Reason : OVERDOSE Blood Pressure : / mmHG Vent. Rate : 103 BPM Atrial Rate : 103 BPM P-R Int : 204 ms QRS Dur : 088 ms QT Int : 352 ms P-R-T Axes : 055 038 045 degrees QTc Int : 461 ms Sinus tachycardia Otherwise normal ECG When compared with ECG of 08-APR-2022 19:34, No significant change was found Referred By: Shala Loyd Electronically Signed By:Fabricio Kay
--- NOTE | 2022-05-01 21:44 | ED.OVERDOSE ---
HPI - Overdose General Chief Complaint: Overdose Stated Complaint: Overdose Time Seen by Provider: 05/01/22 21:43 Source: patient Mode of arrival: ambulatory Limitations: no limitations History of Present Illness HPI Narrative: 46-year-old female with past medical history of borderline personality disorder, depression, anxiety, bipolar 2 with melancholic features, PTSD, DM, GERD? presents today with suicidal attempt, patient was just discharged from our facility with acute anxiety she went back to her jail, got money went to [facility] and but acetaminophen. Patient tells me she took an entire bottle of 50 capsules of 500 mg (25,000mg )of acetaminophen in hopes of suicide. Patient reports that she is feeling dizzy. She denies chest pain, shortness of, nausea, vomiting. She tells me this is not the 1st time she has done this. MD complaint: intentional overdose Related Data Home Medications Medication Instructions Recorded Confirmed atorvastatin 10 mg tablet 1 tab PO DAILY 05/29/21 04/25/22 fluticasone propionate 110 2 puff inhalation BID 05/29/21 04/25/22 mcg/actuation HFA aerosol inhaler (Flovent HFA) metformin 500 mg tablet 1 tab PO BID 05/29/21 04/25/22 montelukast 10 mg tablet 1 tab PO BEDTIME 05/29/21 04/25/22 verapamil 240 mg tablet,extended 240 mg PO BEDTIME 05/29/21 04/25/22 release albuterol sulfate 90 mcg/actuation 2 puff inhalation Q4H PRN 06/15/21 04/25/22 aerosol inhaler (Ventolin HFA) Shortness Of Breath trazodone 150 mg tablet 150 mg PO BEDTIME PRN insomnia 11/05/21 04/25/22 lisinopril 5 mg tablet 1 tab PO DAILY 11/14/21 04/25/22 benztropine 1 mg tablet 1 mg PO DAILY 12/26/21 04/25/22 naproxen 500 mg tablet 1 tab PO BID 01/23/22 04/25/22 fluphenazine HCl 2.5 mg tablet 1 tab PO BEDTIME 03/19/22 04/25/22 fluphenazine HCl 5 mg tablet 1 tab PO BEDTIME 03/19/22 04/25/22 Previous Rx's Medication Instructions Recorded fluoxetine 20 mg capsule 40 mg PO DAILY 30 days #60 caps 09/29/21 mirtazapine 7.5 mg tablet 7.5 mg PO BEDTIME MRX1 30 days #60 10/18/21 tabs prazosin 1 mg capsule 4 mg PO BEDTIME 30 days #120 caps 10/18/21 ondansetron 4 mg disintegrating 4 mg PO Q6-8H PRN nausea and 02/04/22 tablet vomiting #14 tabs docusate sodium 100 mg capsule 100 mg PO BID Constipation #60 caps 02/07/22 (Colace) benzonatate 200 mg capsule 200 mg PO TID PRN cough #20 caps 03/21/22 Allergies Allergy/AdvReac Type Severity Reaction Status Date / Time Fish Containing Products Allergy Severe ANAPHYLAXIS Verified 04/20/22 16:42 codeine [Codeine] Allergy Unknown RASH Verified 04/20/22 16:42 Penicillins Allergy Unknown RASH Verified 04/20/22 16:42 prednisone [Prednisone] Allergy Unknown RASH Verified 04/20/22 16:42 Sulfa (Sulfonamide Allergy Unknown RASH Verified 04/20/22 16:42 Antibiotics) [Sulfa (Sulfonamides)] azithromycin [AZITHROMYCIN] AdvReac Severe RASH Verified 04/20/22 16:42 nicotine AdvReac Unknown HEART Verified 04/20/22 16:42 PALPITATION TO NICOTINE GUM Seafood Allergy Severe ANAPHYLAXIS Uncoded 11/05/21 21:13 From Geodon Allergy Unknown DYSURIA, Uncoded 11/05/21 21:13 RASH Review of Systems Review of Systems: Constitutional : No Weight loss, No Fever, No Chills, No Fatigue, No Malaise ENT/Mouth : No sore throat, No Rhinorrhea Eyes: No Eye Pain, No Swelling, No Redness Cardiovascular : No Chest Pain, No SOB, No Dyspnea on Exertion, No Orthopnea, No Edema, No Palpitations Respiratory : No Cough, No Sputum, No Wheezing Gastrointestinal : No Nausea, No Vomiting, No Diarrhea, No Constipation, No abdominal Pain, No Hematochezia, No Melena Genitourinary : No Dysuria, No Urinary Frequency, No Hematuria, Musculoskeletal : No joint pain, No Myalgias, No Joint Swelling Skin : No Skin Lesions, No rash Neuro : No Weakness, No Numbness, No Dizziness, No Headache Psych : + Anxiety/Panic, +Depression, + SI no HI All other systems reviewed and are negative Yes all other systems are reviewed and are negative [facility] Past Medical History Attestation statement: The following information was validated with the patient. Source: old records reviewed and nursing notes reviewed Medical History Acetaminophen overdose Borderline personality disorder Bronchitis Depression Diabetes type 2, controlled GERD (gastroesophageal reflux disease) History of attempted suicide History of non-suicidal self-harm Hyperlipidemia Hypomagnesemia MDD (major depressive disorder), recurrent episode, severe Mood disorder Overdose PTSD (post-traumatic stress disorder) Suicide attempt Suicide attempt by acetaminophen overdose Social History Social History 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: None 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 Other:: Patient lives in jail. 4 in total live in jail. Housing: Other Housing Other:: jail Do you presently have visiting nurse or other home services: No Unable to assess alcohol history related to: Unknown Alcohol intake: never Patient Tobacco Use Status: Current everyday Tobacco user Tobacco use type: Cigarette Cigarette Packs Per Day: 1 Cigarettes Per Day: 20 Years Smoked: 20 e-Cigarette/Vaping Use: Never Used Substance Use Type: Marijuana Advance Directives: No Advance Directives Information Provided: No service: No Current occupational status: disabled Sexual orientation: Don't Know Physical Exam Vital Signs: Vital Signs: Last Vital Signs Temp 98.1 F 05/01/22 23:34 Pulse 93 05/01/22 23:34 Resp 16 05/01/22 23:34 BP 135/78 05/01/22 23:34 Pulse Ox 98 05/01/22 23:34 O2 Del Method 05/01/22 23:34 BMI result Body Mass Index 36.0 VSS Appearance: Alert.? Oriented X3.? No acute distress.? Head: Normocephalic, atraumatic, no step-offs or deformities Eyes: Pupils equal, round and reactive to light.? ENT: Pharynx normal.? Neck: Normal inspection.? Neck supple.? CVS: Normal heart rate and rhythm.? Pulses normal.? Respiratory: No respiratory distress.? Breath sounds normal.? Abdomen: Soft and nontender.? Skin: Skin warm and dry.? Normal skin color.? Normal skin turgor.? Extremities: No lower extremity edema.? No calf ttp. 5/5 strength to bilateral upper and lower extremities Back: No midline tenderness, no C-spine tenderness, full range of motion, no CVA tenderness bilaterally Neuro: Oriented X 3.? No motor deficit.? No sensory deficit. CN 2-12 intact Course Reevaluation(s) Reevaluation #1: CBC appears to be at patient's baseline. Chemistry w/o electrolyte abnormalites. Serum toxicology negative for salicylates, positive for acetaminophen, 1 hour after ingestion acetaminophen level 38, ethanol negative. Urine toxicology negative. VBG within normal limits. COVID negative. UA without infection, likely contaminated sample. I initiated charcole 1mg/kg rounded to 100mg and N acetylcysteine. Poison control was contacted who agrees with my treatment plan. They recommended an EKG q.4 hours, and monitoring LFTs. I discussed this case with the tree topper Dr. Hendricks who will admit patient to ICU. Also spoke to Kimi ICU [facility] and spoke to her about this patient Time: 22:20 Reevaluation #2: Plan at this time is to admit patient to the ICU with frequent LFT monitoring, cardiac monitoring. Patient accepted to the ICU. At this time patient hemodynamically stable, saturating 100% on room air, GCS score of 15 answering questions appropriately. Time: 00:12 MDM - Overdose MDM Narrative Medical decision making narrative: 2145 46-year-old female presents with intentional overdose after taking 61326 mg of acetaminophen. Patient reporting suicidal ideation. Was recently discharged from our facility with acute anxiety. Physical examination benign. Vital signs stable. Plan at this time is labs, EKG, cardiac workup, cardiac monitoring. Poison Control be contacted at this time by nursing Medical Records Attestation: I reviewed the patient's medical records. Lab Data Attestation: I reviewed the patient's lab results. Result diagrams: 05/01/22 22:04 05/01/22 22:04 Labs: Lab Results 05/01/22 05/01/22 05/01/22 Range/Units 22:04 22:04 22:10 WBC 7.5 (4.8-10.8) X10*3/uL RBC 3.70 L (4.20-5.50) X10*6/uL Hgb 10.8 L (12.0-16.0) g/dl Hct 32.8 L (37.0-47.0) % MCV 88.6 (80.0-98.0) fL MCH 29.2 (27.0-33.0) pg MCHC 32.9 (31.0-35.0) g/dl RDW 13.2 (11.0-16.0) % Plt Count 261 (160-400) X10*3/uL MPV 10.0 (9.4-12.3) fL Immature Gran % (Auto) 0.8 H (0.0-0.4) % Neut % (Auto) 60.8 (45-73) % Lymph % (Auto) 27.0 (20-40) % [place] % (Auto) 9.6 (2-11) % Eos % (Auto) 1.7 (0-4) % Baso % (Auto) 0.1 (0-2) % Lymph # (Auto) 2.0 (1.2-4.9) X10*3/uL [place] # (Auto) 0.7 (0.1-1.2) X10*3/uL Eos # (Auto) 0.1 (0.0-0.4) X10*3/uL Baso # (Auto) 0.0 (0.0-0.2) X10*3/uL Abs Immat Gran (auto) 0.06 H (0.00-0.03) X10*3/uL Absolute Neuts (auto) 4.6 (2.0-8.3) x10*3/uL Absolute Nucleated RBC 0.000 (0.0-0.012) X10*3/uL Nucleated RBC % (auto) 0.0 (0.0-0.2) /100WBC VBG pH (7.32-7.43) VBG pCO2 mmHg VBG pO2 mmHg VBG HCO3 (22-26) mmol/L VBG O2 Saturation % VBG Base Excess mmol/L Sodium 139 (135-145) mmol/L Potassium 3.6 (3.3-5.1) mmol/L Chloride 107 (96-108) mmol/L Carbon Dioxide 24 (22-29) mmol/L Anion Gap 12 (12-20) BUN 11 (9-16) mg/dL Creatinine 0.92 (0.5-1.4) mg/dL Estim Creat Clear Calc 87.3 Estimated GFR > 60 Random Glucose 110 (60-115) mg/dL Calcium 8.6 (8.4-10.2) mg/dL Magnesium 1.7 (1.6-2.6) mg/dL Total Bilirubin < 0.2 (0.0-1.0) mg/dL AST 14 (5-31) U/L ALT 10 (0-31) U/L Alkaline Phosphatase 99 (39-117) U/L Total Protein 6.5 (6.5-8.0) g/dL Albumin 4.2 (3.5-5.0) g/dL Urine Color STRAW Urine Appearance HAZY Urine pH 6.0 (5.0-8.0) Ur Specific [place] <= 1.005 (1.005-1.025) Urine Protein 2+ H (NEG-TRACE) MG/DL Urine Glucose (UA) NEG (NEG) MG/DL Urine Ketones NEG (NEG) MG/DL Urine Blood 3+ H (NEG) Urine Nitrite NEG (NEG) Ur Leukocyte Esterase 1+ H (NEG) Urine RBC 30-49 H (0) /HPF Urine WBC 1-4 (0-4) /HPF Ur Squamous Epith Cells 1+ /LPF Urine Bacteria NONE /LPF Urine Mucus TRACE /LPF Salicylates < 5.0 L (15-30) mg/dL Urine Opiates Screen (Not Detect) Urine Fentanyl Screen (Not Detect) Acetaminophen 38 H (<30) mcg/mL Ur Barbiturates Screen (Not Detect) Ur Phencyclidine Scrn (Not Detect) Ur Amphetamines Screen (Not Detect) U Benzodiazepines Scrn (Not Detect) Urine Cocaine Screen (Not Detect) U Marijuana (THC) Screen (Not Detect) Ethyl Alcohol < 10 mg/dL 05/01/22 05/01/22 Range/Units 22:10 22:17 WBC (4.8-10.8) X10*3/uL RBC (4.20-5.50) X10*6/uL Hgb (12.0-16.0) g/dl Hct (37.0-47.0) % MCV (80.0-98.0) fL MCH (27.0-33.0) pg MCHC (31.0-35.0) g/dl RDW (11.0-16.0) % Plt Count (160-400) X10*3/uL MPV (9.4-12.3) fL Immature Gran % (Auto) (0.0-0.4) % Neut % (Auto) (45-73) % Lymph % (Auto) (20-40) % [place] % (Auto) (2-11) % Eos % (Auto) (0-4) % Baso % (Auto) (0-2) % Lymph # (Auto) (1.2-4.9) X10*3/uL [place] # (Auto) (0.1-1.2) X10*3/uL Eos # (Auto) (0.0-0.4) X10*3/uL Baso # (Auto) (0.0-0.2) X10*3/uL Abs Immat Gran (auto) (0.00-0.03) X10*3/uL Absolute Neuts (auto) (2.0-8.3) x10*3/uL Absolute Nucleated RBC (0.0-0.012) X10*3/uL Nucleated RBC % (auto) (0.0-0.2) /100WBC VBG pH 7.43 (7.32-7.43) VBG pCO2 36 mmHg VBG pO2 172 mmHg VBG HCO3 24 (22-26) mmol/L VBG O2 Saturation 100.0 % VBG Base Excess 1.0 mmol/L Sodium (135-145) mmol/L Potassium (3.3-5.1) mmol/L Chloride (96-108) mmol/L Carbon Dioxide (22-29) mmol/L Anion Gap (12-20) BUN (9-16) mg/dL Creatinine (0.5-1.4) mg/dL Estim Creat Clear Calc Estimated GFR Random Glucose (60-115) mg/dL Calcium (8.4-10.2) mg/dL Magnesium (1.6-2.6) mg/dL Total Bilirubin (0.0-1.0) mg/dL AST (5-31) U/L ALT (0-31) U/L Alkaline Phosphatase (39-117) U/L Total Protein (6.5-8.0) g/dL Albumin (3.5-5.0) g/dL Urine Color Urine Appearance Urine pH (5.0-8.0) Ur Specific [place] (1.005-1.025) Urine Protein (NEG-TRACE) MG/DL Urine Glucose (UA) (NEG) MG/DL Urine Ketones (NEG) MG/DL Urine Blood (NEG) Urine Nitrite (NEG) Ur Leukocyte Esterase (NEG) Urine RBC (0) /HPF Urine WBC (0-4) /HPF Ur Squamous Epith Cells /LPF Urine Bacteria /LPF Urine Mucus /LPF Salicylates (15-30) mg/dL Urine Opiates Screen Not Detected (Not Detect) Urine Fentanyl Screen Not Detected (Not Detect) Acetaminophen (<30) mcg/mL Ur Barbiturates Screen Not Detected (Not Detect) Ur Phencyclidine Scrn Not Detected (Not Detect) Ur Amphetamines Screen Not Detected (Not Detect) U Benzodiazepines Scrn Not Detected (Not Detect) Urine Cocaine Screen Not Detected (Not Detect) U Marijuana (THC) Screen Not Detected (Not Detect) Ethyl Alcohol mg/dL Critical Care Time Critical Care Time Critical Care Time: Yes Total Critical Care Time: 45 Attestation: I attest to this time spent taking care of the patient, obtaining history, physical, reviewing labs, imaging, speaking to my attending, speaking to specialist. Discharge Plan Discharge Clinical Impression: Acetaminophen overdose, Suicide attempt, Dizziness Patient Disposition: Admitted As Inpatient
[2022-05-01 21:47] VITALS: BP 149/87; BP 156/85; PULSE 104; PULSE 107; RESP 16; TEMP 36.8; O2SAT 97; BMI 36.0
--- NOTE | 2022-05-01 21:52 | PC.NURSE ---
pt is alert and answering question appropriately. Ekg ordered and labs. Pt placed on monitor. Provider aware and in to assess pt.
[2022-05-01 22:16] LABS: MANUAL DIFF FLAG NO
[2022-05-01 22:18] LABS: Appearance Urine HAZY; Color Urine STRAW; Glucose Urine UA NEG (NEG); Leukocyte Esterase Urine 1+ (NEG); Nitrite Urine NEG (NEG); Specific Gravity - Urine <= 1.005 (1.005-1.025); UACC Culture Trigger YES; Urine Blood 3+ (NEG); Urine Ketones NEG (NEG); Urine Protein 2+ MG/DL (NEG-TRACE)
[2022-05-01 22:20] LABS: Basophils Percent Auto 0.1 % (0-2); Eosinophils Absolute Auto 0.1 X10*3/uL (0.0-0.4); Eosinophils Percent Auto 1.7 % (0-4); Hematocrit 32.8 % (37.0-47.0); Hemoglobin 10.8 g/dl (12.0-16.0); Imm Gran Abs Auto 0.06 X10*3/uL (0.00-0.03); Imm Gran Pct Auto 0.8 % (0.0-0.4); Mean Corpuscular HGB Conc 32.9 g/dl (31.0-35.0); Mean Corpuscular Hemoglobin 29.2 pg (27.0-33.0); Mean Corpuscular Volume 88.6 fL (80.0-98.0); Monocytes Absolute Auto 0.7 X10*3/uL (0.1-1.2); Monocytes Percent Auto 9.6 % (2-11); Neutrophils Absolute Auto 4.6 x10*3/uL (2.0-8.3); Neutrophils Percent Auto 60.8 % (45-73); Platelet Count 261 X10*3/uL (160-400); Red Cell Distribution Width 13.2 % (11.0-16.0); White Blood Count 7.5 X10*3/uL (4.8-10.8)
[2022-05-01 22:20] LABS: Venous Blood Gas Refer to POC result
[2022-05-01 22:22] LABS: VBG HCO3 24 mmol/L (22-26); VBG pCO2 36 mmHg; VBG pH 7.43 (7.32-7.43); VBG pO2 172 mmHg
[2022-05-01 22:36] LABS: Acetaminophen LAB 38 mcg/mL (<30); Alanine Aminotransferase 10 U/L (0-31); Albumin Level 4.2 g/dL (3.5-5.0); Alkaline Phosphatase 99 U/L (39-117); Anion Gap 12 (12-20); Aspartate Amino Transferase 14 U/L (5-31); Bilirubin Total < 0.2 mg/dL (0.0-1.0); Blood Urea Nitrogen 11 mg/dL (9-16); Calcium 8.6 mg/dL (8.4-10.2); Carbon Dioxide 24 mmol/L (22-29); Chloride 107 mmol/L (96-108); Creatinine Clr Calc Pharmacy 87.3; Estimated Glomerular Filt Rate > 60; Ethanol < 10 mg/dL; Glucose Random 110 mg/dL (60-115); Magnesium 1.7 mg/dL (1.6-2.6); Potassium 3.6 mmol/L (3.3-5.1); Salicylate < 5.0 mg/dL (15-30); Sodium 139 mmol/L (135-145); Total Protein 6.5 g/dL (6.5-8.0)
[2022-05-01 22:39] LABS: Mucus Urine TRACE /LPF; RBC Urine 30-49 /HPF (0); Squamous Epithelial Cell Urine 1+ /LPF
[2022-05-01 22:42] LABS: Amphetamine Screen Urine Not Detected (Not Detect); Barbiturates, Urine Not Detected (Not Detect); Benzodiazepines Screen Urine Not Detected (Not Detect); Cannabinoid Screen Urine Not Detected (Not Detect); Cocaine Screen Urine Not Detected (Not Detect); Fentanyl, urine Not Detected (Not Detect); Opiate Screen Urine Not Detected (Not Detect); Phencyclidine Screen Urine Not Detected (Not Detect)
[2022-05-01] MEDS: Activated charcoaL 50 GM/240 ML ORAL.SUSP PO ×2 (23:12→23:13)
--- NOTE | 2022-05-01 23:21 | P.HPCC_ITS ---
History of Present Illness Date of Service: 05/01/22 Attending physician on admission: Edilma Hendricks Chief Complaint: Tylenol overdose Patient is a 46-year-old female with a past medical history of borderline personality disorder, depression, prior history of suicide attempts with her most recent being on February 09, 2022, same method, who was brought in by ambulance to the emergency room earlier this evening after a bystander witnessed her ingesting a bottle of Tylenol at approx 9pm in the [facility] parking lot. Patient told me that she purchased a bottle of fifty 500mg acetaminophen with the intention of harming herself. She states she ingested the entire bottle and then threw up approximately 25 tablets a minute later. she tells me her only complaint right now is dizziness and she still endorses suicidal ideations. She denies any chest pain, headache, shortness of breath or homicidal ideations. She tells me she does not know with her trigger was and that she could think of anything specific that happened today and only states it happened so fast . She states she does see a therapist regularly but has not seen her in approximately 1 month because her therapist has been booked and the patient admits she has a history of not attending all of her appointments regularly. She does a states she has been taking her behavioral health medications every day but she did not take them today. She tells me she lives in a snf and likes living there. Patient's vital signs have been stable, EKG was sinus tach with a rate of 103, no ST or T-wave changes, no QT prolongation; her labs are remarkable for a hemoglobin of 10.8, hematocrit 32.8, urine is positive for protein, blood, leukocyte esterase, acetaminophen level 38. The patient's VBG, PT/INR, PTT, chemistry panel and liver function tests are all within normal limits at this time. I have placed a consult to crisis, pt has a 1:1 sitter. ED has ordered charcoal (1mg/kg) and acetylcysteine loading dose as well as the gtt. I spoke Dr. Hendricks, he agreed with the assessment and plan, patient will be transferred to the ICU for monitoring and care. Review of Systems Review of Systems: Yes all other systems are reviewed and are negative PMFSH Past Medical History Medical History Acetaminophen overdose Borderline personality disorder Bronchitis Depression Diabetes type 2, controlled GERD (gastroesophageal reflux disease) History of attempted suicide History of non-suicidal self-harm Hyperlipidemia Hypomagnesemia MDD (major depressive disorder), recurrent episode, severe Mood disorder Overdose PTSD (post-traumatic stress disorder) Suicide attempt Suicide attempt by acetaminophen overdose Social History Social History 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: None 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 Other:: Patient lives in snf. 4 in total live in snf. Housing: Other Housing Other:: snf Do you presently have visiting nurse or other home services: No Unable to assess alcohol history related to: Unknown Alcohol intake: never Patient Tobacco Use Status: Current everyday Tobacco user Tobacco use type: Cigarette Cigarette Packs Per Day: 1 Cigarettes Per Day: 20 Years Smoked: 20 e-Cigarette/Vaping Use: Never Used Substance Use Type: Marijuana Advance Directives: No Advance Directives Information Provided: No service: No Current occupational status: disabled Sexual orientation: Don't Know Meds Allergies Allergy/AdvReac Type Severity Reaction Status Date / Time Fish Containing Products Allergy Severe ANAPHYLAXIS Verified 04/20/22 16:42 codeine [Codeine] Allergy Unknown RASH Verified 04/20/22 16:42 Penicillins Allergy Unknown RASH Verified 04/20/22 16:42 prednisone [Prednisone] Allergy Unknown RASH Verified 04/20/22 16:42 Sulfa (Sulfonamide Allergy Unknown RASH Verified 04/20/22 16:42 Antibiotics) [Sulfa (Sulfonamides)] azithromycin [AZITHROMYCIN] AdvReac Severe RASH Verified 04/20/22 16:42 nicotine AdvReac Unknown HEART Verified 04/20/22 16:42 PALPITATION TO NICOTINE GUM Seafood Allergy Severe ANAPHYLAXIS Uncoded 11/05/21 21:13 From [place]odon Allergy Unknown DYSURIA, Uncoded 11/05/21 21:13 RASH Active Medications: Current Medications Acetylcysteine 14,288 mg/ (Dextrose) 271.44 mls @ 199.997 mls/hr IV ONCE ONE Stop: 05/02/22 00:00 Acetylcysteine 9,525 mg/ (Dextrose) 1,047.625 mls @ 62.5 mls/hr IV ONCE@0500 YULY Stop: 05/02/22 21:46 Acetylcysteine 4,763 mg/ (Dextrose) 523.815 mls @ 124.999 mls/hr IV ONCE@0030 YULY Stop: 05/02/22 04:42 Pharmacy Consult (Consult Rx Perform Med Rec) 1 each MISCELLANE ONCE PRN PRN Reason: Consult order Home Medications Medication Instructions Recorded Confirmed Last Taken Type atorvastatin 10 mg tablet 1 tab PO DAILY 05/29/21 04/25/22 03/19/22 08:00 History fluticasone propionate 110 2 puff inhalation BID 05/29/21 04/25/22 03/19/22 0 8:00 History mcg/actuation HFA aerosol inhaler (Flovent HFA) metformin 500 mg tablet 1 tab PO BID 05/29/21 04/25/22 03/19/22 08:00 History montelukast 10 mg tablet 1 tab PO BEDTIME 05/29/21 04/25/22 03/18/22 20:00 History verapamil 240 mg tablet,extended 240 mg PO BEDTIME 05/29/21 04/25/22 03/18/22 20:00 History release albuterol sulfate 90 mcg/actuation 2 puff inhalation Q4H PRN 06/15/21 04/25/22 02/06/22 20:00 History aerosol inhaler (Ventolin HFA) Shortness Of Breath trazodone 150 mg tablet 150 mg PO BEDTIME PRN insomnia 11/05/21 04/25/22 02/06/22 20:00 History lisinopril 5 mg tablet 1 tab PO DAILY 11/14/21 04/25/22 03/19/22 08:00 History benztropine 1 mg tablet 1 mg PO DAILY 12/26/21 04/25/22 03/19/22 08:00 History naproxen 500 mg tablet 1 tab PO BID 01/23/22 04/25/22 02/07/22 08:00 History fluphenazine HCl 2.5 mg tablet 1 tab PO BEDTIME 03/19/22 04/25/22 Unknown History fluphenazine HCl 5 mg tablet 1 tab PO BEDTIME 03/19/22 04/25/22 Unknown History Physical Exam Vital Signs: Vital Signs: Last Vital Signs Temp 98.2 F 05/01/22 21:47 Pulse 104 H 05/01/22 21:47 Resp 16 05/01/22 21:47 BP 149/87 H 05/01/22 21:47 Pulse Ox 97 05/01/22 21:47 O2 Del Method 05/01/22 21:47 BMI result Body Mass Index 36.0 Const: General: cooperative, healthy appearing, comfortable, no acute distress and well developed Nutritional Appearance: overweight Orientation/consci ousness: patient oriented x3 Limitations: no limitations HEENT: Head: Yes normal to inspection, Yes No palpable skull fracture present, Yes normocephalic and Yes atraumatic General nose exam: Normal external nose present Face and sinus: Yes normal facial exam Teeth and gingiva: edentulous Eyes: General: appearance normal, both eyes and all related structures Neck: Neck: Yes normal visual inspection, Yes full ROM, Yes no meningeal signs and Yes trachea midline Resp: Effort & Inspection: normal respiratory effort and able to speak in complete sentences Auscultation: clear to auscultation bilaterally Cardio: Rate: tachycardic (103) Rhythm: regular rhythm Heart sounds: normal S1 and S2 GI: Inspection: Yes obesity Palpation (GI): Soft to palpation and nontender Neuro: General: patient oriented x3 and no meningeal signs Extrem: General: Yes normal to inspection and Yes no pedal edema Psych: Speech and movement: Normal speech and movement present and Clear speech present Affect: Sad affect present Attitude: cooperative Thought process: Normal thought process present Thought content: Suicidality present and no homicidality Insight: Limited insight present (Psych) Judgement: Limited judgement present (Psych) Results Labs CBC and Chem 7: 05/01/22 22:04 05/02/22 01:31 Labs: Laboratory Results - last 24 hr 05/01/22 05/01/22 05/01/22 22:04 22:04 22:10 MCV 88.6 MCH 29.2 MCHC 32.9 RDW 13.2 Plt Count 261 MPV 10.0 Immature Gran % (Auto) 0.8 H Neut % (Auto) 60.8 Lymph % (Auto) 27.0 [place] % (Auto) 9.6 Eos % (Auto) 1.7 Baso % (Auto) 0.1 Lymph # (Auto) 2.0 [place] # (Auto) 0.7 Eos # (Auto) 0.1 Baso # (Auto) 0.0 Abs Immat Gran (auto) 0.06 H Absolute Neuts (auto) 4.6 Absolute Nucleated RBC 0.000 Nucleated RBC % (auto) 0.0 VBG pH VBG pCO2 VBG pO2 VBG HCO3 VBG O2 Saturation VBG Base Excess Anion Gap 12 Estim Creat Clear Calc 87.3 Estimated GFR > 60 Random Glucose 110 Calcium 8.6 Magnesium 1.7 Total Bilirubin < 0.2 AST 14 ALT 10 Alkaline Phosphatase 99 Total Protein 6.5 Albumin 4.2 Urine Color STRAW Urine Appearance HAZY Urine pH 6.0 Ur Specific [place] <= 1.005 Urine Protein 2+ H Urine Glucose (UA) NEG Urine Ketones NEG Urine Blood 3+ H Urine Nitrite NEG Ur Leukocyte Esterase 1+ H Urine RBC 30-49 H Urine WBC 1-4 Ur Squamous Epith Cells 1+ Urine Bacteria NONE Urine Mucus TRACE Salicylates < 5.0 L Urine Opiates Screen Urine Fentanyl Screen Acetaminophen 38 H Ur Barbiturates Screen Ur Phencyclidine Scrn Ur Amphetamines Screen U Benzodiazepines Scrn Urine Cocaine Screen U Marijuana (THC) Screen Ethyl Alcohol < 10 05/01/22 05/01/22 22:10 22:17 MCV MCH MCHC RDW Plt Count MPV Immature Gran % (Auto) Neut % (Auto) Lymph % (Auto) [place] % (Auto) Eos % (Auto) Baso % (Auto) Lymph # (Auto) [place] # (Auto) Eos # (Auto) Baso # (Auto) Abs Immat Gran (auto) Absolute Neuts (auto) Absolute Nucleated RBC Nucleated RBC % (auto) VBG pH 7.43 VBG pCO2 36 VBG pO2 172 VBG HCO3 24 VBG O2 Saturation 100.0 VBG Base Excess 1.0 Anion Gap Estim Creat Clear Calc Estimated GFR Random Glucose Calcium Magnesium Total Bilirubin AST ALT Alkaline Phosphatase Total Protein Albumin Urine Color Urine Appearance Urine pH Ur Specific [place] Urine Protein Urine Glucose (UA) Urine Ketones Urine Blood Urine Nitrite Ur Leukocyte Esterase Urine RBC Urine WBC Ur Squamous Epith Cells Urine Bacteria Urine Mucus Salicylates Urine Opiates Screen Not Detected Urine Fentanyl Screen Not Detected Acetaminophen Ur Barbiturates Screen Not Detected Ur Phencyclidine Scrn Not Detected Ur Amphetamines Screen Not Detected U Benzodiazepines Scrn Not Detected Urine Cocaine Screen Not Detected U Marijuana (THC) Screen Not Detected Ethyl Alcohol Assessment and Plan (1) Acetaminophen overdose: Status: Acute patient given 100mg charcoal, and acetylcysteine loading dose as well as an acetylcysteine drip, will monitor her VBG, chemistry, LFT, PT/INR, PTT and acetaminophen levels Q4H (2) UTI (urinary tract infection): Status: Acute Mild infection, pt asymptomatic, will hold off on antibiotics for 24-48 hours as most are hepatotoxic or cleared through the liver Critical Care Time Critical Care Time (minutes): 60
[2022-05-01 23:34] VITALS: BP 135/78; PULSE 93; RESP 16; TEMP 36.7; O2SAT 98
[2022-05-01 23:55] LABS: COVID-19 Test Negative (Negative)
[2022-05-02] VITALS (21 sets, daily range): BP systolic 117–168; BP diastolic 53–90; PULSE 60–84; RESP 13–18; TEMP 36.8–37; O2SAT 94–98; BMI 38.0
[2022-05-02 01:39] LABS: VBG Base Excess 0.5 mmol/L; VBG HCO3 23 mmol/L (22-26); VBG pCO2 31 mmHg; VBG pH 7.48 (7.32-7.43); VBG pO2 116 mmHg
[2022-05-02 01:42] LABS: Venous Blood Gas Refer to POC result
[2022-05-02 01:51] LABS: Prothrombin Time 11.9 SEC (10.0-13.1)
[2022-05-02 01:54] LABS: Partial Thromboplastin Time 35.2 SEC (24.1-38.0)
[2022-05-02 02:03] LABS: Acetaminophen LAB 171 mcg/mL (<30); Alanine Aminotransferase 9 U/L (0-31); Albumin Level 3.8 g/dL (3.5-5.0); Alkaline Phosphatase 87 U/L (39-117); Aspartate Amino Transferase 11 U/L (5-31); Bilirubin Direct < 0.2 mg/dL (0.0-0.5); Bilirubin Total < 0.2 mg/dL (0.0-1.0); Blood Urea Nitrogen 11 mg/dL (9-16); Calcium 8.3 mg/dL (8.4-10.2); Estimated Glomerular Filt Rate 58; Glucose Random 157 mg/dL (60-115)
[2022-05-02 02:33] LABS: Anion Gap 17 (12-20); Carbon Dioxide 18 mmol/L (22-29); Chloride 110 mmol/L (96-108); Potassium 3.9 mmol/L (3.3-5.1); Sodium 141 mmol/L (135-145)
--- NOTE | 2022-05-02 03:52 | PC.NURSE ---
ADMIT TO 254-1 FROM ER DEPT...AWAKE..ALERT..ORIENTED X3...FLAT AFFECT...VSS..NSR..NO ECTOPY...ACETYLCYSTEINE INFUSING PER [facility] PROTOCOL...OOB X2 PASSED 2 LARGE BROWN STOOLS.... 1;1 SITTER PRESENT D/T SI....POISON CONTROL PROVIDED WITH UPDATE INCLUDING PAST LAB RESULTS AND FURTHER LAB ORDERS...POISON CONTROL STATED WILL CALL FOR UPDATE 05/02 PM
[2022-05-02 05:20] LABS: VBG HCO3 21 mmol/L (22-26); VBG pCO2 35 mmHg; VBG pH 7.38 (7.32-7.43); VBG pO2 76 mmHg
[2022-05-02 06:12] LABS: Alanine Aminotransferase 12 U/L (0-31); Albumin Level 3.8 g/dL (3.5-5.0); Alkaline Phosphatase 82 U/L (39-117); Anion Gap 13 (12-20); Aspartate Amino Transferase 12 U/L (5-31); Bilirubin Direct < 0.2 mg/dL (0.0-0.5); Bilirubin Total < 0.2 mg/dL (0.0-1.0); Blood Urea Nitrogen 10 mg/dL (9-16); Calcium 8.2 mg/dL (8.4-10.2); Carbon Dioxide 21 mmol/L (22-29); Chloride 110 mmol/L (96-108); Creatinine Clr Calc Pharmacy 67.8; Estimated Glomerular Filt Rate 48; Glucose Random 135 mg/dL (60-115); Potassium 3.6 mmol/L (3.3-5.1); Sodium 140 mmol/L (135-145)
[2022-05-02 06:27] LABS: INTERNATIONAL NORM RATIO 1.1 (0.9-1.1); Prothrombin Time 12.9 SEC (10.0-13.1)
[2022-05-02 06:30] LABS: Partial Thromboplastin Time 37.3 SEC (24.1-38.0)
[2022-05-02 06:57] LABS: Venous Blood Gas Refer to POC result
--- NOTE | 2022-05-02 07:05 | PHA.MEDREC ---
Pharmacy Consult ? Medication Reconciliation Pharmacy has completed the medication reconciliation.
[2022-05-02 08:16] LABS: Acetaminophen LAB 89 mcg/mL (<30)
[2022-05-02 09:48] LABS: VBG Base Excess -2.3 mmol/L; VBG HCO3 21 mmol/L (22-26); VBG pCO2 33 mmHg; VBG pH 7.41 (7.32-7.43); VBG pO2 93 mmHg
[2022-05-02 10:18] LABS: Venous Blood Gas Refer to POC result
[2022-05-02 10:23] LABS: INTERNATIONAL NORM RATIO 1.1 (0.9-1.1); Prothrombin Time 12.8 SEC (10.0-13.1)
[2022-05-02 10:26] LABS: Partial Thromboplastin Time 37.8 SEC (24.1-38.0)
[2022-05-02 11:15] LABS: Acetaminophen LAB 37 mcg/mL (<30); Alanine Aminotransferase 10 U/L (0-31); Albumin Level 3.9 g/dL (3.5-5.0); Alkaline Phosphatase 81 U/L (39-117); Anion Gap 13 (12-20); Aspartate Amino Transferase 11 U/L (5-31); Bilirubin Direct < 0.2 mg/dL (0.0-0.5); Bilirubin Total 0.2 mg/dL (0.0-1.0); Blood Urea Nitrogen 8 mg/dL (9-16); Carbon Dioxide 20 mmol/L (22-29); Chloride 109 mmol/L (96-108); Creatinine Clr Calc Pharmacy 73.3; Estimated Glomerular Filt Rate 52; Glucose Random 110 mg/dL (60-115); Potassium 3.8 mmol/L (3.3-5.1); Sodium 138 mmol/L (135-145); Total Protein 6.2 g/dL (6.5-8.0)
[2022-05-02 12:40] LABS: Glucose, Whole Blood 116 mg/dL (60-115)
[2022-05-02] MEDS: Nystatin Cream 15 GM TUBE 1 APPL TOPICAL ×2 (13:05→20:13)
[2022-05-02] MEDS: Sodium Chloride 0.45 % 1,000 ML 100 ML IVCONT ×2 (13:22→23:36)
[2022-05-02 14:07] LABS: Venous Blood Gas Refer to POC result
[2022-05-02 14:10] LABS: VBG Base Excess 1.3 mmol/L; VBG HCO3 26 mmol/L (22-26); VBG pCO2 41 mmHg; VBG pO2 119 mmHg
[2022-05-02 14:13] LABS: INTERNATIONAL NORM RATIO 1.1 (0.9-1.1)
[2022-05-02 14:16] LABS: Partial Thromboplastin Time 38.2 SEC (24.1-38.0)
--- NOTE | 2022-05-02 14:21 | MHC.CM.PN ---
Pt in ICU following Tylenol OD. CM met with pt who was somewhat groggy and gave minimal information. Pt resides in a chcf, has [facility] outpt MH services and no DME. [facility] assists with transportation. Pt states she had 3 COVID vax. Discussed d/c plans to which pt stated she was hoping for INPT psych. Will await medical clearance for BHN/psych eval. If pt clears, she can d/c back to her chcf with continued outpt BHN services. Pt declined to sign IMM: copy left at bedside for review at her convenience
[2022-05-02 14:24] LABS: Acetaminophen LAB 15 mcg/mL (<30); Alanine Aminotransferase 9 U/L (0-31); Albumin Level 3.7 g/dL (3.5-5.0); Alkaline Phosphatase 77 U/L (39-117); Anion Gap 11 (12-20); Aspartate Amino Transferase 11 U/L (5-31); Bilirubin Direct < 0.2 mg/dL (0.0-0.5); Bilirubin Total 0.3 mg/dL (0.0-1.0); Blood Urea Nitrogen 7 mg/dL (9-16); Carbon Dioxide 21 mmol/L (22-29); Chloride 111 mmol/L (96-108); Estimated Glomerular Filt Rate > 60; Glucose Random 110 mg/dL (60-115); Potassium 3.5 mmol/L (3.3-5.1); Sodium 139 mmol/L (135-145)
[2022-05-02 14:25] LABS: Acetaminophen LAB 16 mcg/mL (<30); Alanine Aminotransferase 10 U/L (0-31); Albumin Level 3.8 g/dL (3.5-5.0); Alkaline Phosphatase 76 U/L (39-117); Anion Gap 10 (12-20); Aspartate Amino Transferase 11 U/L (5-31); Bilirubin Total 0.3 mg/dL (0.0-1.0); Blood Urea Nitrogen 6 mg/dL (9-16); Calcium 8.2 mg/dL (8.4-10.2); Carbon Dioxide 23 mmol/L (22-29); Chloride 111 mmol/L (96-108); Creatinine Clr Calc Pharmacy 88.1; Estimated Glomerular Filt Rate > 60; Glucose Random 111 mg/dL (60-115); Potassium 3.6 mmol/L (3.3-5.1); Sodium 140 mmol/L (135-145)
--- NOTE | 2022-05-02 15:39 | PC.NURSE ---
Assumed care at 07:00. Patient alert, oriented, responds with clearly limited insight and vague understanding of situation. Follows commands, moves all extremities. Speech is clear. Patient continues on acetylcysteine gtt, serum acetaminophen level downtrended and reviewed with MD, trended down to 15-16 by 13:58. This is below the high risk curve per MD. Patient LFTs are also unremarkable. Patient does continue to endorse positive SI and depression. Patient has 1:1 sitter. Patient has been compliant with care. Was started on IV 1/2 NS at 100 cc/hour. Diabetic diet started. POC 116 prior to lunch, patient takes metformin at home. Patient was able to ambulated down hallway and back. Patient breathing comfortably on room air. Lung sounds clear. On telemetry, patient is in sinus rhythm with a first degree AV block. Patient OOB to commode numerous times, concentrated urine, endorses some mild hesitancy and difficulty urinating at times, but resolved on its own. Patient identified a small area of redness in her right lower abdominal fold, which she says is typical of fungal rashes she has had before there and used nystatin cream for in the past. Discussed with MD and new order for nystatin cream, applied with good effect.
--- NOTE | 2022-05-02 15:49 | PM.CCPN ---
Subjective Subjective Date of Service: 05/02/22 Interval History: 46-year-old moderately obese will female with chronic major depression and suicidal ideation with another 1 of several suicide attempts by taking a bottle of acetaminophen and presented within an hour of of taking it but she was bilevel in the high risk range but we are now 18 hours later and she never developed any abnormal liver function test examinations and she has just fallen below the line of risk and were 3 hours away from completing the 21 hour infusion and her last level was 16 so I think that were in the clear and will simply complete the infusion Renal function is preserved as well Critical Care Time (minutes): 60 Physical Exam Vital Signs: Vital Signs: Last Vital Signs Temp 98.2 F 05/02/22 12:00 Pulse 75 05/02/22 15:33 Resp 13 05/02/22 15:33 BP 152/89 H 05/02/22 15:33 Pulse Ox 96 05/02/22 15:33 O2 Del Method 05/02/22 15:33 BMI result Body Mass Index 38.0 Awake and oriented and nonfocal neurologically Bedside cardiac exam by echo with class 1 LV function Lungs clear with no adventitious sounds no respiratory effort Abdomen benign no organomegaly Skin intact Objective Data Labs CBC & Chem 7: 05/01/22 22:04 05/02/22 13:58 Labs: Laboratory Results - last 24 hr 05/01/22 05/01/22 05/01/22 22:04 22:04 22:10 WBC 7.5 RBC 3.70 L Hgb 10.8 L Hct 32.8 L MCV 88.6 MCH 29.2 MCHC 32.9 RDW 13.2 Plt Count 261 MPV 10.0 Immature Gran % (Auto) 0.8 H Neut % (Auto) 60.8 Lymph % (Auto) 27.0 [place] % (Auto) 9.6 Eos % (Auto) 1.7 Baso % (Auto) 0.1 Lymph # (Auto) 2.0 [place] # (Auto) 0.7 Eos # (Auto) 0.1 Baso # (Auto) 0.0 Abs Immat Gran (auto) 0.06 H Absolute Neuts (auto) 4.6 Absolute Nucleated RBC 0.000 Nucleated RBC % (auto) 0.0 PT INR APTT VBG pH VBG pCO2 VBG pO2 VBG HCO3 VBG O2 Saturation VBG Base Excess Sodium 139 Potassium 3.6 Chloride 107 Carbon Dioxide 24 Anion Gap 12 BUN 11 Creatinine 0.92 Estim Creat Clear Calc 87.3 Estimated GFR > 60 POC Glucose Random Glucose 110 Calcium 8.6 Magnesium 1.7 Total Bilirubin < 0.2 Direct Bilirubin AST 14 ALT 10 Alkaline Phosphatase 99 Total Protein 6.5 Albumin 4.2 Urine Color STRAW Urine Appearance HAZY Urine pH 6.0 Ur Specific [place] <= 1.005 Urine Protein 2+ H Urine Glucose (UA) NEG Urine Ketones NEG Urine Blood 3+ H Urine Nitrite NEG Ur Leukocyte Esterase 1+ H Urine RBC 30-49 H Urine WBC 1-4 Ur Squamous Epith Cells 1+ Urine Bacteria NONE Urine Mucus TRACE Salicylates < 5.0 L Urine Opiates Screen Urine Fentanyl Screen Acetaminophen 38 H Ur Barbiturates Screen Ur Phencyclidine Scrn Ur Amphetamines Screen U Benzodiazepines Scrn Urine Cocaine Screen U Marijuana (THC) Screen Ethyl Alcohol < 10 COVID-19 (NICK) COVID-19 [employer] 05/01/22 05/01/22 05/01/22 22:10 22:17 23:32 WBC RBC Hgb Hct MCV MCH MCHC RDW Plt Count MPV Immature Gran % (Auto) Neut % (Auto) Lymph % (Auto) [place] % (Auto) Eos % (Auto) Baso % (Auto) Lymph # (Auto) [place] # (Auto) Eos # (Auto) Baso # (Auto) Abs Immat Gran (auto) Absolute Neuts (auto) Absolute Nucleated RBC Nucleated RBC % (auto) PT INR APTT VBG pH 7.43 VBG pCO2 36 VBG pO2 172 VBG HCO3 24 VBG O2 Saturation 100.0 VBG Base Excess 1.0 Sodium Potassium Chloride Carbon Dioxide Anion Gap BUN Creatinine Estim Creat Clear Calc Estimated GFR POC Glucose Random Glucose Calcium Magnesium Total Bilirubin Direct Bilirubin AST ALT Alkaline Phosphatase Total Protein Albumin Urine Color Urine Appearance Urine pH Ur Specific [place] Urine Protein Urine Glucose (UA) Urine Ketones Urine Blood Urine Nitrite Ur Leukocyte Esterase Urine RBC Urine WBC Ur Squamous Epith Cells Urine Bacteria Urine Mucus Salicylates Urine Opiates Screen Not Detected Urine Fentanyl Screen Not Detected Acetaminophen Ur Barbiturates Screen Not Detected Ur Phencyclidine Scrn Not Detected Ur Amphetamines Screen Not Detected U Benzodiazepines Scrn Not Detected Urine Cocaine Screen Not Detected U Marijuana (THC) Screen Not Detected Ethyl Alcohol COVID-19 (NICK) Negative COVID-19 [employer] See Note 05/02/22 05/02/22 05/02/22 01:31 01:31 01:35 WBC RBC Hgb Hct MCV MCH MCHC RDW Plt Count MPV Immature Gran % (Auto) Neut % (Auto) Lymph % (Auto) [place] % (Auto) Eos % (Auto) Baso % (Auto) Lymph # (Auto) [place] # (Auto) Eos # (Auto) Baso # (Auto) Abs Immat Gran (auto) Absolute Neuts (auto) Absolute Nucleated RBC Nucleated RBC % (auto) PT 11.9 INR 1.0 APTT 35.2 VBG pH 7.48 H VBG pCO2 31 VBG pO2 116 VBG HCO3 23 VBG O2 Saturation 99.0 VBG Base Excess 0.5 Sodium 141 Potassium 3.9 Chloride 110 H Carbon Dioxide 18 L Anion Gap 17 BUN 11 Creatinine 1.03 Estim Creat Clear Calc 78.0 Estimated GFR 58 POC Glucose Random Glucose 157 H Calcium 8.3 L Magnesium Total Bilirubin < 0.2 Direct Bilirubin < 0.2 AST 11 ALT 9 Alkaline Phosphatase 87 Total Protein 6.0 L Albumin 3.8 Urine Color Urine Appearance Urine pH Ur Specific [place] Urine Protein Urine Glucose (UA) Urine Ketones Urine Blood Urine Nitrite Ur Leukocyte Esterase Urine RBC Urine WBC Ur Squamous Epith Cells Urine Bacteria Urine Mucus Salicylates Urine Opiates Screen Urine Fentanyl Screen Acetaminophen 171 H* Ur Barbiturates Screen Ur Phencyclidine Scrn Ur Amphetamines Screen U Benzodiazepines Scrn Urine Cocaine Screen U Marijuana (THC) Screen Ethyl Alcohol COVID-19 (NICK) COVID-19 Clin Com 05/02/22 05/02/22 05/02/22 05:15 05:16 05:16 WBC RBC Hgb Hct MCV MCH MCHC RDW Plt Count MPV Immature Gran % (Auto) Neut % (Auto) Lymph % (Auto) [place] % (Auto) Eos % (Auto) Baso % (Auto) Lymph # (Auto) [place] # (Auto) Eos # (Auto) Baso # (Auto) Abs Immat Gran (auto) Absolute Neuts (auto) Absolute Nucleated RBC Nucleated RBC % (auto) PT 12.9 INR 1.1 APTT 37.3 VBG pH 7.38 VBG pCO2 35 VBG pO2 76 VBG HCO3 21 L VBG O2 Saturation 94.0 VBG Base Excess -3.0 Sodium 140 Potassium 3.6 Chloride 110 H Carbon Dioxide 21 L Anion Gap 13 BUN 10 Creatinine 1.22 Estim Creat Clear Calc 67.8 Estimated GFR 48 POC Glucose Random Glucose 135 H Calcium 8.2 L Magnesium Total Bilirubin < 0.2 Direct Bilirubin < 0.2 AST 12 ALT 12 Alkaline Phosphatase 82 Total Protein 6.0 L Albumin 3.8 Urine Color Urine Appearance Urine pH Ur Specific [place] Urine Protein Urine Glucose (UA) Urine Ketones Urine Blood Urine Nitrite Ur Leukocyte Esterase Urine RBC Urine WBC Ur Squamous Epith Cells Urine Bacteria Urine Mucus Salicylates Urine Opiates Screen Urine Fentanyl Screen Acetaminophen 89 H* Ur Barbiturates Screen Ur Phencyclidine Scrn Ur Amphetamines Screen U Benzodiazepines Scrn Urine Cocaine Screen U Marijuana (THC) Screen Ethyl Alcohol COVID-19 (NICK) COVID-19 [employer] 05/02/22 05/02/22 05/02/22 09:41 09:41 09:43 WBC RBC Hgb Hct MCV MCH MCHC RDW Plt Count MPV Immature Gran % (Auto) Neut % (Auto) Lymph % (Auto) [place] % (Auto) Eos % (Auto) Baso % (Auto) Lymph # (Auto) [place] # (Auto) Eos # (Auto) Baso # (Auto) Abs Immat Gran (auto) Absolute Neuts (auto) Absolute Nucleated RBC Nucleated RBC % (auto) PT 12.8 INR 1.1 APTT 37.8 VBG pH 7.41 VBG pCO2 33 VBG pO2 93 VBG HCO3 21 L VBG O2 Saturation 97.0 VBG Base Excess -2.3 Sodium 138 Potassium 3.8 Chloride 109 H Carbon Dioxide 20 L Anion Gap 13 BUN 8 L Creatinine 1.13 Estim Creat Clear Calc 73.3 Estimated GFR 52 POC Glucose Random Glucose 110 Calcium 8.0 L Magnesium Total Bilirubin 0.2 Direct Bilirubin < 0.2 AST 11 ALT 10 Alkaline Phosphatase 81 Total Protein 6.2 L Albumin 3.9 Urine Color Urine Appearance Urine pH Ur Specific [place] Urine Protein Urine Glucose (UA) Urine Ketones Urine Blood Urine Nitrite Ur Leukocyte Esterase Urine RBC Urine WBC Ur Squamous Epith Cells Urine Bacteria Urine Mucus Salicylates Urine Opiates Screen Urine Fentanyl Screen Acetaminophen 37 H Ur Barbiturates Screen Ur Phencyclidine Scrn Ur Amphetamines Screen U Benzodiazepines Scrn Urine Cocaine Screen U Marijuana (THC) Screen Ethyl Alcohol COVID-19 (NICK) COVID-19 [employer] 05/02/22 05/02/22 05/02/22 12:36 13:58 13:58 WBC RBC Hgb Hct MCV MCH MCHC RDW Plt Count MPV Immature Gran % (Auto) Neut % (Auto) Lymph % (Auto) [place] % (Auto) Eos % (Auto) Baso % (Auto) Lymph # (Auto) [place] # (Auto) Eos # (Auto) Baso # (Auto) Abs Immat Gran (auto) Absolute Neuts (auto) Absolute Nucleated RBC Nucleated RBC % (auto) PT 13.0 INR 1.1 APTT 38.2 H VBG pH VBG pCO2 VBG pO2 VBG HCO3 VBG O2 Saturation VBG Base Excess Sodium 139 Potassium 3.5 Chloride 111 H Carbon Dioxide 21 L Anion Gap 11 L BUN 7 L Creatinine 0.91 Estim Creat Clear Calc 91.0 Estimated GFR > 60 POC Glucose 116 H Random Glucose 110 Calcium 8.0 L Magnesium Total Bilirubin 0.3 Direct Bilirubin < 0.2 AST 11 ALT 9 Alkaline Phosphatase 77 Total Protein 6.0 L Albumin 3.7 Urine Color Urine Appearance Urine pH Ur Specific [place] Urine Protein Urine Glucose (UA) Urine Ketones Urine Blood Urine Nitrite Ur Leukocyte Esterase Urine RBC Urine WBC Ur Squamous Epith Cells Urine Bacteria Urine Mucus Salicylates Urine Opiates Screen Urine Fentanyl Screen Acetaminophen 15 Ur Barbiturates Screen Ur Phencyclidine Scrn Ur Amphetamines Screen U Benzodiazepines Scrn Urine Cocaine Screen U Marijuana (THC) Screen Ethyl Alcohol COVID-19 (NICK) COVID-19 Clin Com 05/02/22 05/02/22 13:58 14:05 WBC RBC Hgb Hct MCV MCH MCHC RDW Plt Count MPV Immature Gran % (Auto) Neut % (Auto) Lymph % (Auto) [place] % (Auto) Eos % (Auto) Baso % (Auto) Lymph # (Auto) [place] # (Auto) Eos # (Auto) Baso # (Auto) Abs Immat Gran (auto) Absolute Neuts (auto) Absolute Nucleated RBC Nucleated RBC % (auto) PT INR APTT VBG pH 7.40 VBG pCO2 41 VBG pO2 119 VBG HCO3 26 VBG O2 Saturation 100.0 VBG Base Excess 1.3 Sodium 140 Potassium 3.6 Chloride 111 H Carbon Dioxide 23 Anion Gap 10 L BUN 6 L Creatinine 0.94 Estim Creat Clear Calc 88.1 Estimated GFR > 60 POC Glucose Random Glucose 111 Calcium 8.2 L Magnesium Total Bilirubin 0.3 Direct Bilirubin AST 11 ALT 10 Alkaline Phosphatase 76 Total Protein 6.0 L Albumin 3.8 Urine Color Urine Appearance Urine pH Ur Specific [place] Urine Protein Urine Glucose (UA) Urine Ketones Urine Blood Urine Nitrite Ur Leukocyte Esterase Urine RBC Urine WBC Ur Squamous Epith Cells Urine Bacteria Urine Mucus Salicylates Urine Opiates Screen Urine Fentanyl Screen Acetaminophen 16 Ur Barbiturates Screen Ur Phencyclidine Scrn Ur Amphetamines Screen U Benzodiazepines Scrn Urine Cocaine Screen U Marijuana (THC) Screen Ethyl Alcohol COVID-19 (NICK) COVID-19 Clin Com Microbiology Microbiology Results: Microbiology 05/01/22 22:10 Urine clean catch - Urine sanchez top Urine Culture - Preliminary No growth to date. Progress Note: A&P Assessment and plan (1) Major depression: Status: Acute (2) Suicide attempt: Status: Acute (3) Dizziness: Status: Acute (4) UTI (urinary tract infection): Status: Acute (5) COVID: Status: Acute (6) Acetaminophen overdose: Status: Acute Plan So the plan is to complete a 21 hour with N acetylcysteine infusion and at that point to transfer to a step-down area and then psychiatric consult Quality Stroke Does the patient have a stroke diagnosis?: No VTE Prior VTE?: No VTE Risk Level:: Medical - low VTE Device Contraindication: N/A - Device Ordered VTE Drug Contraindication: Treatment Not Indicated
[2022-05-02 16:22] LABS: Glucose, Whole Blood 136 mg/dL (60-115)
[2022-05-02 19:45] LABS: Acetaminophen LAB 7 mcg/mL (<30); Alanine Aminotransferase 10 U/L (0-31); Albumin Level 3.6 g/dL (3.5-5.0); Alkaline Phosphatase 73 U/L (39-117); Anion Gap 10 (12-20); Aspartate Amino Transferase 11 U/L (5-31); Bilirubin Total 0.2 mg/dL (0.0-1.0); Blood Urea Nitrogen 6 mg/dL (9-16); Calcium 8.3 mg/dL (8.4-10.2); Carbon Dioxide 22 mmol/L (22-29); Chloride 111 mmol/L (96-108); Creatinine Clr Calc Pharmacy 111.9; Estimated Glomerular Filt Rate > 60; Glucose Random 106 mg/dL (60-115); Potassium 3.3 mmol/L (3.3-5.1); Sodium 140 mmol/L (135-145); Total Protein 5.7 g/dL (6.5-8.0)
[2022-05-02 22:00] LABS: Glucose, Whole Blood 105 mg/dL (60-115)
[2022-05-03] VITALS: PULSE 62; RESP 17; O2SAT 95
[2022-05-03 04:00] VITALS: BP 152/66; PULSE 61; RESP 15; O2SAT 95
[2022-05-03 06:00] VITALS: BMI 38.0
[2022-05-03 07:09] LABS: Glucose, Whole Blood 86 mg/dL (60-115)
[2022-05-03] MEDS: Nystatin Cream 15 GM TUBE 1 APPL TOPICAL (08:14)
[2022-05-03] MEDS: 0.9 % Sodium Chloride Flush 3 ML SYRINGE IVFLUSH (08:14)
[2022-05-03] MEDS: Sodium Chloride 0.45 % 1,000 ML 100 ML IVCONT (08:15)
--- NOTE | 2022-05-03 10:21 | MHC.CM.PN ---
Pt downgraded to Med Surg: awaiting psych eval for ? of INPT treatment needs vs return to her skilled nursing with outpt BHN services. CM to follow
--- NOTE | 2022-05-03 10:34 | HO.PM.IMPN ---
Subjective Subjective Date of Service: 05/03/22 Interval History: cc: tylenol OD interval history: still suicidal, no physical complaints Cardiovascular Cardiovascular: Reports no additional cardiovascular complaints Respiratory Respiratory: Reports no additional respiratory complaints Physical Exam Vital Signs: Vital Signs: Last Vital Signs Temp 98.6 F 05/02/22 16:00 Pulse 61 05/03/22 04:00 Resp 15 05/03/22 04:00 BP 152/66 H 05/03/22 04:00 Pulse Ox 95 05/03/22 04:00 O2 Del Method 05/03/22 08:00 BMI result Body Mass Index 38.0 General: AO X 3, no acute distress Resp: CTA bilateral, no accessory muscles used CVS: S1,S2,RRR GI: soft, non tender, non distended Neuro: motor grossly intact, alert Psych: depressed affect, appropriate insight Objective Data Active Medications Albuterol/Ipratropium (Albuterol/Iprat 2.5/0.5mg 3 Ml Ampul.Neb) 3 ml INHALE RQ4H PRN PRN Reason: Dyspnea Sodium Chloride () 1,000 mls @ 100 mls/hr IVCONT .Q10H [facility] Last Admin: 05/03/22 08:15 Dose: 100 mls/hr Documented By: CHARLETTE Midazolam HCl (Midazolam Hcl/Pf 2 Mg/2 Ml Vial) 2 mg IVPUSH 8XD PRN PRN Reason: anxiety/restlessness Nystatin (Nystatin Cream 15 Gm Tube) 1 appl TOPICAL BID YULY; Protocol Last Admin: 05/03/22 08:14 Dose: 1 appl Documented By: CHARLETTE Pharmacy Consult (Consult Rx Perform Med Rec) 1 each MISCELLANE ONCE PRN PRN Reason: Consult order Sodium Chloride (0.9 % Sodium Chloride Flush 3 Ml Syringe) 3 ml IVFLUSH QSHIFT [facility] Last Admin: 05/03/22 08:14 Dose: 3 ml Documented By: CHARLETTE Labs CBC & Chem 7: 05/01/22 22:04 05/02/22 19:21 Labs: Laboratory Results - last 24 hr 05/02/22 05/02/22 05/02/22 09:41 12:36 13:58 PT 13.0 INR 1.1 APTT 38.2 H VBG pH VBG pCO2 VBG pO2 VBG HCO3 VBG O2 Saturation VBG Base Excess Anion Gap 13 Estim Creat Clear Calc 73.3 Estimated GFR 52 POC Glucose 116 H Random Glucose 110 Calcium 8.0 L Total Bilirubin 0.2 Direct Bilirubin < 0.2 AST 11 ALT 10 Alkaline Phosphatase 81 Total Protein 6.2 L Albumin 3.9 Acetaminophen 37 H 05/02/22 05/02/22 05/02/22 13:58 13:58 14:05 PT INR APTT VBG pH 7.40 VBG pCO2 41 VBG pO2 119 VBG HCO3 26 VBG O2 Saturation 100.0 VBG Base Excess 1.3 Anion Gap 11 L 10 L Estim Creat Clear Calc 91.0 88.1 Estimated GFR > 60 > 60 POC Glucose Random Glucose 110 111 Calcium 8.0 L 8.2 L Total Bilirubin 0.3 0.3 Direct Bilirubin < 0.2 AST 11 11 ALT 9 10 Alkaline Phosphatase 77 76 Total Protein 6.0 L 6.0 L Albumin 3.7 3.8 Acetaminophen 15 16 05/02/22 05/02/22 05/02/22 16:19 19:21 21:56 PT INR APTT VBG pH VBG pCO2 VBG pO2 VBG HCO3 VBG O2 Saturation VBG Base Excess Anion Gap 10 L Estim Creat Clear Calc 111.9 Estimated GFR > 60 POC Glucose 136 H 105 Random Glucose 106 Calcium 8.3 L Total Bilirubin 0.2 Direct Bilirubin AST 11 ALT 10 Alkaline Phosphatase 73 Total Protein 5.7 L Albumin 3.6 Acetaminophen 7 05/03/22 07:05 PT INR APTT VBG pH VBG pCO2 VBG pO2 VBG HCO3 VBG O2 Saturation VBG Base Excess Anion Gap Estim Creat Clear Calc Estimated GFR POC Glucose 86 Random Glucose Calcium Total Bilirubin Direct Bilirubin AST ALT Alkaline Phosphatase Total Protein Albumin Acetaminophen Microbiology Microbiology Results: Microbiology 05/01/22 22:10 Urine Culture - Preliminary Urine clean catch - Urine sanchez top No growth to date. Assessment and Plan (1) Suicide attempt: Status: Acute Plan 46F presented with tylenol overdose, suicide attempt, completed NAC course in ICU, LFTS remained normal, downgraded to medical floor intentional tylenol overdose s/p NAC, lfts stable medically cleared BHN eval 1:1 DM metformin, monitor poc obesity weight loss htn lisiniopril hld statin dvt prophylaxis - lovenox full code reason for continued hospitalization: suicidal ideation Quality Stroke Does the patient have a stroke diagnosis?: No VTE Prior VTE?: No VTE Risk Level:: Medical - low VTE Device Contraindication: N/A - Device Ordered VTE Drug Contraindication: Treatment Not Indicated
[2022-05-03 11:25] LABS: Glucose, Whole Blood 127 mg/dL (60-115)
[2022-05-03] MEDS: Nicotine 21 MG PATCH.TD24 TRANSDERMA (11:46)
[2022-05-03] MEDS: Enoxaparin Sodium 40 MG/0.4 ML SYRINGE SUBCUT (11:48)
--- NOTE | 2022-05-03 12:55 | PC.NURSE ---
Patient resting quietly in room this morning, ambulating in hallway with 1:1 sitter. At 1030 she complained of anxiety and was visibly shaking. PRN versed given with good effect. Responded well to reassurance and distraction. This afternoon patient complained of increased anxiety again and was anxiosly awaiting the care team. She also expressed concern about not receiving her regular medications. Dr. Joseph notified via secured messaging. MD hesitant to order additional medication for her anxiety and stated he would defer to the Care Team. Shortly after patient reported that she was hearing voices that were telling her to harm herself. Care Team was notified and responded that they were working on organizing her care and would see the patient as soon as they were able. This information was relayed to the patient. Presently patient is ambulating in thomas with 1:1 sitter. She has not demonstrated any agitation and responds well to reassurance and distraction. Safety maintained.
--- NOTE | 2022-05-03 14:52 | P.DS_ITS ---
DS: Providers Provider Date of Service: 05/03/22 Date of admission: 05/01/22 23:13 Primary care physician: Maribel Marquez NP Consults: 05/01/22 23:13 Consult to Crisis Stat Reason for consultation: Tylenol overdose Has provider been notified: No 05/03/22 07:40 BHN [Consult to Crisis] Stat Reason for consultation: suicide attempt, medically cleared Consult to Care Team Routine Comment: Reason for consultation: SI attempt, medically cleared DS: Diagnosis Discharge Diagnosis (1) Suicide attempt: Status: Acute DS: Summary Hospital Course Hospital Course: from initial hpi: Chief Complaint: Tylenol overdose Patient is a 46-year-old female with a past medical history of borderline personality disorder, depression, prior history of suicide attempts with her most recent being on February 09, 2022, same method,? who was brought in by ambulance to the emergency room earlier this evening after a bystander witnessed her ingesting a bottle of Tylenol at approx 9pm in the [facility] parking lot.? Patient told me that she purchased a bottle of fifty 500mg acetaminophen with the intention of harming herself.? She states she ingested the entire bottle and then threw up approximately 25 tablets a minute later.? she tells me her only complaint right now is dizziness and she still endorses suicidal ideations.? She denies any chest pain, headache, shortness of breath or homicidal ideations.? She tells me she does not know with her trigger was and that she could think of anything specific that happened today and only states it happened so fast .? She states she does see a therapist regularly but has not seen her in approximately 1 month because? her therapist has been booked and the patient admits she has a history of not attending all of her appointments regularly.? She does a states she has been taking her behavioral health medications every day but she did not take them today.? She tells me she lives in a senior care and likes living there.? Patient's vital signs have been stable, EKG was sinus tach with a rate of 103, no ST or T-wave changes,? no QT prolongation; her labs? are remarkable for a hemoglobin of 10.8, hematocrit 32.8,? urine is positive for protein, blood, leukocyte esterase,? acetaminophen level 38.? The patient's VBG, PT/INR, PTT, chemistry panel and liver function tests are all within normal limits at this time. I have placed a consult to crisis, pt has a 1:1 sitter. ED has ordered charcoal (1mg/kg) and acetylcysteine loading dose as well as the gtt. I spoke Dr. Hendricks, he agreed with the assessment and plan, patient will be transferred to the ICU for monitoring and care. hospital course: patient was admitted for intentional Tylenol overdose. She received and the N acetylcystine and LFTs remained stable. She was seen by care team who knows her very well and feels that this was not a true to suicide attempt but likely attention seeking and that she would not derive any benefit from inpatient psychiatry admission. She will be discharged home. For diabetes continue metformin, for obesity weight loss recommended. For hypertension show continue lisinopril. For hyperlipidemia she will continue statin. Time Spent with Patient Time attestation: Total time spent providing and/or coordinating discharge services: Discharge coordination time: Greater than 30 minutes Quality: Safe Use of Opioids Does Pt have an Active Cancer Diagnosis on the Problem List?: No Quality: Stroke Does the patient have a stroke diagnosis?: No Physical Exam Vital Signs: Vital Signs: Last Vital Signs Temp 98.6 F 05/02/22 16:00 Pulse 61 05/03/22 04:00 Resp 15 05/03/22 04:00 BP 152/66 H 05/03/22 04:00 Pulse Ox 95 05/03/22 04:00 O2 Del Method 05/03/22 12:00 BMI result Body Mass Index 38.0 General: AO X 3, no acute distress Resp: CTA bilateral, no accessory muscles used CVS: S1,S2,RRR GI: soft, non tender, non distended Neuro: motor grossly intact, alert Psych: appropriate affect, appropriate insight DS: Data Data Completed and Pending Completed studies during hospitalization [Text1]: Procedures Insertion of Infusion Device into Left Internal Jugular Vein, Percutaneous Approach (02/09/22) Labs on day of discharge: Laboratory Results - last 24 hr 05/02/22 05/02/22 05/02/22 16:19 19:21 21:56 Sodium 140 Potassium 3.3 Chloride 111 H Carbon Dioxide 22 Anion Gap 10 L BUN 6 L Creatinine 0.74 Estim Creat Clear Calc 111.9 Estimated GFR > 60 POC Glucose 136 H 105 Random Glucose 106 Calcium 8.3 L Total Bilirubin 0.2 AST 11 ALT 10 Alkaline Phosphatase 73 Total Protein 5.7 L Albumin 3.6 Acetaminophen 7 05/03/22 05/03/22 07:05 11:22 Sodium Potassium Chloride Carbon Dioxide Anion Gap BUN Creatinine Estim Creat Clear Calc Estimated GFR POC Glucose 86 127 H Random Glucose Calcium Total Bilirubin AST ALT Alkaline Phosphatase Total Protein Albumin Acetaminophen Discharge Plan Discharge Patient Disposition: Home, Self-Care Discharge Diagnosis: intentional tylenol overdose Referrals: Maribel Marquez [employer] [Primary Care Provider] - 1 Week Discharge Medications: Continued metformin 500 mg tablet 1 tab PO BID atorvastatin 10 mg tablet 1 tab PO DAILY verapamil 240 mg tablet extended release 240 mg PO BEDTIME montelukast 10 mg tablet 1 tab PO BEDTIME fluticasone propionate [Flovent HFA] 110 mcg/actuation HFA aerosol inhaler 2 puff inhalation BID albuterol sulfate [Ventolin HFA] 90 mcg/actuation HFA aerosol inhaler 2 puff inhalation Q4H PRN (Reason: Shortness Of Breath) trazodone 150 mg tablet 150 mg PO BEDTIME PRN (Reason: insomnia) benztropine 1 mg tablet 1 mg PO DAILY naproxen 500 mg tablet 1 tab PO BID docusate sodium [Colace] 100 mg capsule 100 mg PO BID Qty: 60 0RF benzonatate 200 mg capsule 200 mg PO TID PRN (Reason: cough) Qty: 20 0RF fluoxetine 20 mg Capsule 40 mg PO DAILY 30 Days Qty: 60 0RF prazosin 1 mg Capsule 4 mg PO BEDTIME 30 Days Qty: 120 0RF Protocol: Hold for SBP< HOLD for SBP < : 90 mirtazapine 7.5 mg Tablet 7.5 mg PO BEDTIME MRX1 30 Days Qty: 60 0RF lisinopril 5 mg tablet 1 tab PO DAILY ondansetron 4 mg tablet,disintegrating 4 mg PO Q6-8H PRN (Reason: nausea and vomiting) Qty: 14 0RF fluphenazine HCl 2.5 mg tablet 1 tab PO BEDTIME fluphenazine HCl 5 mg tablet 1 tab PO BEDTIME Discharge Orders: Discharge Order (Routine); Ordered 05/03/22 Ordered By: Brad Portillo Diet: Advance to usual diet Activity on Discharge: As tolerated Stand Alone Forms: Patient Portal Discharge page Care Plan Goals: prevent tylenol overdose Health Concerns: tylenol overdose Plan of Treatment: close follow up with psychiatry Assessment: see above
--- NOTE | 2022-05-03 15:00 | MHC.CM.PN ---
Discussed with hospitalist: pt has been cleared by psych and can d/c to home with established N outpt services. [facility]: director of home, Toni Pittman is on the way to transport pt to home. No additional services are needed.
--- NOTE | 2022-05-03 15:26 | PC.NURSE ---
Patient seen by care team. Discharge order given. Reviewed instructions, meds and post-hospitalization care with patient and caregiver of [facility]. Patient verbalized understanding of all info given. IV dc'd. Belongings returned. Patient discharged to [facility].
== END 2022-05-03 15:22 | disposition home or self-care (01) | DRG 918 ==
LOC: HO.ED 22:03 → HO.EDOVER 23:41 → HO.ICU 05-02 01:09
PROVIDERS: Hospitalist; Internal Medicine Cardiovascular Disease; Physician Assistant; Admitting Provider Physician Assistant; Emergency Provider Internal Medicine; PCP Nurse Practitioner Family; Visit Provider Internal Medicine
DX: T39.1X2A Poisoning by 4-Aminophenol derivatives, intentional self-harm, initial encounter (principal); N39.0 Urinary tract infection, site not specified; F60.3 Borderline personality disorder; F32.9 Major depressive disorder, single episode, unspecified; F43.10 Post-traumatic stress disorder, unspecified; F17.210 Nicotine dependence, cigarettes, uncomplicated; E78.5 Hyperlipidemia, unspecified; E66.9 Obesity, unspecified; Z68.38 Body mass index [BMI] 38.0-38.9, adult; Z20.822 Contact with and (suspected) exposure to COVID-19; Z71.6 Tobacco abuse counseling; Z91.51 Personal history of suicidal behavior; Z91.013 Allergy to seafood; Z88.0 Allergy status to penicillin; Z88.2 Allergy status to sulfonamides; Z88.5 Allergy status to narcotic agent; Z88.8 Allergy status to other drugs, medicaments and biological substances; Z79.51 Long term (current) use of inhaled steroids; Z79.84 Long term (current) use of oral hypoglycemic drugs; Z79.899 Other long term (current) drug therapy
CPT/HCPCS: 36415; 80048; 80053; 80076; 80143; 80179; 80307; 81001; 82077; 82803; 82947; 83735; 85025; 85610; 85730; 87086; 87635; 93005; 96365; 99281; 99284; 99285; J0132; J1650

== ENCOUNTER 2022-05-04 17:28 | Emergency (ER) | payer MEDICARE, MEDICAID, SELFPAY ==
[2022-05-04 17:46] VITALS: BP 149/111; PULSE 86; RESP 18; TEMP 36.1; O2SAT 95; BMI 39.4
--- NOTE | 2022-05-04 18:02 | ED.PSYCH ---
HPI - Psych General Chief Complaint: Psychiatric Symptoms Stated Complaint: crisis Time Seen by Provider: 05/04/22 18:01 Source: patient and EMS Mode of arrival: EMS Limitations: no limitations History of Present Illness HPI Narrative: 46-year-old female presents via EMS for suicidal ideation with plan to OD on aspirin. MD complaint: suicidal ideation and feels depressed Onset (ago): year(s) Duration: constant History of same: Yes Relieving factors: none Associated psychiatric symptoms: depression and suicidal ideation Associated symptoms: denies other symptoms Treatments prior to arrival: none If self harm: admits thoughts of self harm and has plan Related Data Home Medications Medication Instructions Recorded Confirmed atorvastatin 10 mg tablet 1 tab PO DAILY 05/29/21 05/02/22 fluticasone propionate 110 2 puff inhalation BID 05/29/21 05/02/22 mcg/actuation HFA aerosol inhaler (Flovent HFA) metformin 500 mg tablet 1 tab PO BID 05/29/21 05/02/22 montelukast 10 mg tablet 1 tab PO BEDTIME 05/29/21 05/02/22 verapamil 240 mg tablet,extended 240 mg PO BEDTIME 05/29/21 05/02/22 release albuterol sulfate 90 mcg/actuation 2 puff inhalation Q4H PRN 06/15/21 05/02/22 aerosol inhaler (Ventolin HFA) Shortness Of Breath trazodone 150 mg tablet 150 mg PO BEDTIME PRN insomnia 11/05/21 05/02/22 lisinopril 5 mg tablet 1 tab PO DAILY 11/14/21 05/02/22 benztropine 1 mg tablet 1 mg PO DAILY 12/26/21 05/02/22 naproxen 500 mg tablet 1 tab PO BID 01/23/22 05/02/22 fluphenazine HCl 2.5 mg tablet 1 tab PO BEDTIME 03/19/22 05/02/22 fluphenazine HCl 5 mg tablet 1 tab PO BEDTIME 03/19/22 05/02/22 Previous Rx's Medication Instructions Recorded fluoxetine 20 mg capsule 40 mg PO DAILY 30 days #60 caps 09/29/21 mirtazapine 7.5 mg tablet 7.5 mg PO BEDTIME MRX1 30 days #60 10/18/21 tabs prazosin 1 mg capsule 4 mg PO BEDTIME 30 days #120 caps 10/18/21 ondansetron 4 mg disintegrating 4 mg PO Q6-8H PRN nausea and 02/04/22 tablet vomiting #14 tabs docusate sodium 100 mg capsule 100 mg PO BID Constipation #60 caps 02/07/22 (Colace) benzonatate 200 mg capsule 200 mg PO TID PRN cough #20 caps 03/21/22 Allergies Allergy/AdvReac Type Severity Reaction Status Date / Time Fish Containing Products Allergy Severe ANAPHYLAXIS Verified 04/20/22 16:42 codeine [Codeine] Allergy Unknown RASH Verified 04/20/22 16:42 Penicillins Allergy Unknown RASH Verified 04/20/22 16:42 prednisone [Prednisone] Allergy Unknown RASH Verified 04/20/22 16:42 Sulfa (Sulfonamide Allergy Unknown RASH Verified 04/20/22 16:42 Antibiotics) [Sulfa (Sulfonamides)] azithromycin [AZITHROMYCIN] AdvReac Severe RASH Verified 04/20/22 16:42 ziprasidone [From Geodon] AdvReac Intermediate dysuria, Verified 05/03/22 10:37 rash Review of Systems Review of Systems: Constitutional: No Fever, No Chills ENT/Mouth: No Ear Pain, No Nasal Congestion, No sore throat Eyes: No Eye Pain, No Swelling, No Redness Cardiovascular: No Chest Pain, No SOB Respiratory: No Cough, No Sputum, No Dyspnea Gastrointestinal: No Nausea, No Vomiting, No Diarrhea, No Hematochezia, No Melena Genitourinary: No Dysuria, No Urinary Frequency, No Hematuria Musculoskeletal: No Myalgias Skin: No Skin Lesions, No rash Neuro: No Weakness, No Numbness, No Paresthesias, No Dizziness, No Headache Psych: positive Anxiety, positive Depression, positive SI Heme/Lymph: No Lymphadenopathy Endocrine: No Polyuria, No Polydipsia Yes all other systems are reviewed and are negative [facility] Past Medical History Attestation statement: The following information was validated with the patient. Source: old records reviewed Medical History Acetaminophen overdose Borderline personality disorder Bronchitis Depression Diabetes type 2, controlled GERD (gastroesophageal reflux disease) History of attempted suicide History of non-suicidal self-harm Hyperlipidemia Hypomagnesemia Major depression MDD (major depressive disorder), recurrent episode, severe Mood disorder Overdose PTSD (post-traumatic stress disorder) Suicide attempt Suicide attempt by acetaminophen overdose Social History Social History Household Members: None Household Members Other:: Patient lives in half-way. 4 in total live in half-way. Housing: Other Housing Other:: half-way Do you presently have visiting nurse or other home services: No Unable to assess alcohol history related to: Unknown Alcohol intake: never Patient Tobacco Use Status: Current everyday Tobacco user Tobacco use type: Cigarette Cigarette Packs Per Day: 1 Cigarettes Per Day: 20 Years Smoked: 20 e-Cigarette/Vaping Use: Never Used Substance Use Type: Marijuana Advance Directives: No Advance Directives Information Provided: No service: No Current occupational status: disabled Sexual orientation: Don't Know Physical Exam Vital Signs: Vital Signs: Last Vital Signs Temp 97 F 05/04/22 17:46 Pulse 86 05/04/22 17:46 Resp 18 05/04/22 17:46 BP 149/111 H 05/04/22 17:46 Pulse Ox 95 05/04/22 17:46 O2 Del Method 05/04/22 17:46 BMI result Body Mass Index 39.4 Appearance: Alert. Oriented X3. Mild emotional distress. Eyes: Pupils equal, round and reactive to light. ENT: Pharynx normal. Neck: Normal inspection. Neck supple. CVS: Normal heart rate and rhythm. Pulses normal. Respiratory: No respiratory distress. Breath sounds normal. Abdomen: Soft and nontender. Skin: Skin warm and dry. Normal skin color. Normal skin turgor. Extremities: Gait well-balanced well coordinated. Neuro: No motor deficit. No sensory deficit. Cranial nerves 2-12 intact. Course Course Course Narrative: 46-year-old female presents for suicidal ideation with plan to overdose on aspirin. Was discharged from ICU this morning for Tylenol overdose. Will order labs, order crisis consult. Patient does not have any physical complaints at this time. Patient presents to this facility on a daily basis and has a care plan in place. 20:30 consult complete. Plan of care is for discharge home. Patient verbalized understanding of and agrees to plan of care to discharge home. MDM - Psych Differential Diagnosis Differential diagnosis: Likely acute psychosis, suicidal ideation and depression Medical Records Attestation: I reviewed the patient's medical records. Lab Data Attestation: I reviewed the patient's lab results. Result diagrams: 05/04/22 19:54 05/04/22 19:54 Labs: Lab Results 05/04/22 05/04/22 05/04/22 Range/Units 18:03 19:54 19:54 WBC 8.2 (4.8-10.8) X10*3/uL RBC 3.91 L (4.20-5.50) X10*6/uL Hgb 11.4 L (12.0-16.0) g/dl Hct 34.2 L (37.0-47.0) % MCV 87.5 (80.0-98.0) fL MCH 29.2 (27.0-33.0) pg MCHC 33.3 (31.0-35.0) g/dl RDW 13.4 (11.0-16.0) % Plt Count 279 (160-400) X10*3/uL MPV 9.6 (9.4-12.3) fL Immature Gran % (Auto) 0.2 (0.0-0.4) % Neut % (Auto) 62.6 (45-73) % Lymph % (Auto) 25.1 (20-40) % [place] % (Auto) 7.9 (2-11) % Eos % (Auto) 3.7 (0-4) % Baso % (Auto) 0.5 (0-2) % Lymph # (Auto) 2.1 (1.2-4.9) X10*3/uL [place] # (Auto) 0.7 (0.1-1.2) X10*3/uL Eos # (Auto) 0.3 (0.0-0.4) X10*3/uL Baso # (Auto) 0.0 (0.0-0.2) X10*3/uL Abs Immat Gran (auto) 0.02 (0.00-0.03) X10*3/uL Absolute Neuts (auto) 5.1 (2.0-8.3) x10*3/uL Absolute Nucleated RBC 0.000 (0.0-0.012) X10*3/uL Nucleated RBC % (auto) 0.0 (0.0-0.2) /100WBC Sodium 139 (135-145) mmol/L Potassium 3.6 (3.3-5.1) mmol/L Chloride 106 (96-108) mmol/L Carbon Dioxide 23 (22-29) mmol/L Anion Gap 14 (12-20) BUN 6 L (9-16) mg/dL Creatinine 0.77 (0.5-1.4) mg/dL Estim Creat Clear Calc 109.7 Estimated GFR > 60 Random Glucose 151 H (60-115) mg/dL Calcium 8.5 (8.4-10.2) mg/dL Total Bilirubin 0.2 (0.0-1.0) mg/dL Direct Bilirubin < 0.2 (0.0-0.5) mg/dL AST 13 (5-31) U/L ALT 12 (0-31) U/L Alkaline Phosphatase 100 D (39-117) U/L Total Protein 6.9 D (6.5-8.0) g/dL Albumin 4.5 D (3.5-5.0) g/dL Lipase 11 (8-78) U/L Salicylates < 5.0 L (15-30) mg/dL Acetaminophen < 1 (<30) mcg/mL COVID-19 ([facility]) Negative (Negative) COVID-19 Clin Com See Note Discharge Plan Discharge Clinical Impression: Major depression, Suicidal ideation Patient Disposition: Home, Self-Care Instructions: Depression (ED), Help Prevent Suicide (ED) Additional Instructions: Follow-up with outpatient psychiatry as scheduled. Thank you for choosing this emergency department for evaluation. Please follow-up with primary care physician as needed. Return to the emergency department for any new, concerning, or worsening symptoms. Prescriptions: No Action metformin 500 mg tablet 1 tab PO BID atorvastatin 10 mg tablet 1 tab PO DAILY verapamil 240 mg tablet extended release 240 mg PO BEDTIME montelukast 10 mg tablet 1 tab PO BEDTIME fluticasone propionate [Flovent HFA] 110 mcg/actuation HFA aerosol inhaler 2 puff inhalation BID albuterol sulfate [Ventolin HFA] 90 mcg/actuation HFA aerosol inhaler 2 puff inhalation Q4H PRN (Reason: Shortness Of Breath) trazodone 150 mg tablet 150 mg PO BEDTIME PRN (Reason: insomnia) benztropine 1 mg tablet 1 mg PO DAILY naproxen 500 mg tablet 1 tab PO BID docusate sodium [Colace] 100 mg capsule 100 mg PO BID Qty: 60 0RF benzonatate 200 mg capsule 200 mg PO TID PRN (Reason: cough) Qty: 20 0RF fluoxetine 20 mg Capsule 40 mg PO DAILY 30 Days Qty: 60 0RF prazosin 1 mg Capsule 4 mg PO BEDTIME 30 Days Qty: 120 0RF Protocol: Hold for SBP< HOLD for SBP < : 90 mirtazapine 7.5 mg Tablet 7.5 mg PO BEDTIME MRX1 30 Days Qty: 60 0RF lisinopril 5 mg tablet 1 tab PO DAILY ondansetron 4 mg tablet,disintegrating 4 mg PO Q6-8H PRN (Reason: nausea and vomiting) Qty: 14 0RF fluphenazine HCl 2.5 mg tablet 1 tab PO BEDTIME fluphenazine HCl 5 mg tablet 1 tab PO BEDTIME Interventions: ED Discharge Assessment Last Done: 05/04/22 22:28 Discharge Date/Time: 05/04/22 22:52
[2022-05-04 18:23] LABS: COVID-19 Test Negative (Negative)
[2022-05-04 20:05] LABS: Basophils Percent Auto 0.5 % (0-2); Eosinophils Absolute Auto 0.3 X10*3/uL (0.0-0.4); Eosinophils Percent Auto 3.7 % (0-4); Hematocrit 34.2 % (37.0-47.0); Hemoglobin 11.4 g/dl (12.0-16.0); Imm Gran Abs Auto 0.02 X10*3/uL (0.00-0.03); Imm Gran Pct Auto 0.2 % (0.0-0.4); Lymphocytes Absolute Auto 2.1 X10*3/uL (1.2-4.9); Lymphocytes Percent Auto 25.1 % (20-40); MANUAL DIFF FLAG NO; Mean Corpuscular HGB Conc 33.3 g/dl (31.0-35.0); Mean Corpuscular Hemoglobin 29.2 pg (27.0-33.0); Mean Corpuscular Volume 87.5 fL (80.0-98.0); Mean Platelet Volume 9.6 fL (9.4-12.3); Monocytes Absolute Auto 0.7 X10*3/uL (0.1-1.2); Monocytes Percent Auto 7.9 % (2-11); Neutrophils Absolute Auto 5.1 x10*3/uL (2.0-8.3); Neutrophils Percent Auto 62.6 % (45-73); Platelet Count 279 X10*3/uL (160-400); Red Blood Count 3.91 X10*6/uL (4.20-5.50); Red Cell Distribution Width 13.4 % (11.0-16.0); White Blood Count 8.2 X10*3/uL (4.8-10.8)
[2022-05-04 20:23] LABS: Alanine Aminotransferase 12 U/L (0-31); Albumin Level 4.5 g/dL (3.5-5.0); Alkaline Phosphatase 100 U/L (39-117); Anion Gap 14 (12-20); Aspartate Amino Transferase 13 U/L (5-31); Bilirubin Direct < 0.2 mg/dL (0.0-0.5); Bilirubin Total 0.2 mg/dL (0.0-1.0); Blood Urea Nitrogen 6 mg/dL (9-16); Calcium 8.5 mg/dL (8.4-10.2); Carbon Dioxide 23 mmol/L (22-29); Chloride 106 mmol/L (96-108); Creatinine Clr Calc Pharmacy 109.7; Estimated Glomerular Filt Rate > 60; Glucose Random 151 mg/dL (60-115); Lipase 11 U/L (8-78); Potassium 3.6 mmol/L (3.3-5.1); Sodium 139 mmol/L (135-145); Total Protein 6.9 g/dL (6.5-8.0)
[2022-05-04 20:37] LABS: Acetaminophen LAB < 1 mcg/mL (<30); Salicylate < 5.0 mg/dL (15-30)
--- NOTE | 2022-05-04 21:14 | MHC.CARE ---
Pt is seen by the CARE Team. Pt is well known to CARE Team and ED. She was evaluated yesterday due to an tylenol overdose and subsequently admitted to ICU. Pt was later discharged as she presented with high rescue factors. Pt presents today as she states she felt scared . She discusses that she was triggered today bt a staff member at the day program who went around the group asking how everyones weekend was. Pt replied and said what had happened and pt did not like staff's response Oh we are back to old behaviors now . Pt was reflecting on this at home and became triggered which prompted her to come to the ED. At this time, pt is at baseline requesting to return home. She denies SI/HI, AH/VH. Pt states her plan is to return home, smoke a cigarette, take her medications and go to sleep. She reports she will be attending the day program tomorrow.
== END 2022-05-04 22:52 | disposition home or self-care (01) ==
PROVIDERS: Nurse Practitioner Family; Emergency Provider Internal Medicine; PCP Nurse Practitioner Family
DX: F32.9 Major depressive disorder, single episode, unspecified (principal); R45.851 Suicidal ideations; Z20.822 Contact with and (suspected) exposure to COVID-19; F60.3 Borderline personality disorder; F43.10 Post-traumatic stress disorder, unspecified; E11.9 Type 2 diabetes mellitus without complications; E78.5 Hyperlipidemia, unspecified; F17.210 Nicotine dependence, cigarettes, uncomplicated; F12.90 Cannabis use, unspecified, uncomplicated; Z91.51 Personal history of suicidal behavior; Z79.02 Long term (current) use of antithrombotics/antiplatelets; Z79.84 Long term (current) use of oral hypoglycemic drugs; Z79.899 Other long term (current) drug therapy
CPT/HCPCS: 36415; 80048; 80076; 80143; 80179; 83690; 85025; 87635; 99282; 99283

== ENCOUNTER 2022-05-06 19:31 | Emergency (ER) | payer MEDICARE, MEDICAID, SELFPAY ==
--- NOTE | 2022-05-06 19:37 | ED.PSYCH ---
HPI - Psych General Chief Complaint: Psychiatric Symptoms Stated Complaint: crisis Source: patient and EMS Mode of arrival: EMS Limitations: no limitations History of Present Illness HPI Narrative: 46-year-old female presents via EMS for suicidal ideation with plan to overdose on Tylenol. Patient has presented to this facility with Tylenol overdose in the past. She did not report any medical complaints, does not report any recent cutting, denies homicidal ideation, chest pain or pressure, palpitations, abdominal pain, abdominal distention, dysuria, hematuria, shortness of breath, fevers and chills. MD complaint: suicidal ideation, feels depressed and anxiety Onset (ago): year(s) Duration: constant History of same: Yes Relieving factors: none Context: significant life stressor Associated psychiatric symptoms: depression, suicidal ideation and racing thoughts Associated symptoms: denies other symptoms Treatments prior to arrival: none If self harm: admits thoughts of self harm, has plan and has acted on plan Related Data Home Medications Medication Instructions Recorded Confirmed atorvastatin 10 mg tablet 1 tab PO DAILY 05/29/21 05/02/22 fluticasone propionate 110 2 puff inhalation BID 05/29/21 05/02/22 mcg/actuation HFA aerosol inhaler (Flovent HFA) metformin 500 mg tablet 1 tab PO BID 05/29/21 05/02/22 montelukast 10 mg tablet 1 tab PO BEDTIME 05/29/21 05/02/22 verapamil 240 mg tablet,extended 240 mg PO BEDTIME 05/29/21 05/02/22 release albuterol sulfate 90 mcg/actuation 2 puff inhalation Q4H PRN 06/15/21 05/02/22 aerosol inhaler (Ventolin HFA) Shortness Of Breath trazodone 150 mg tablet 150 mg PO BEDTIME PRN insomnia 11/05/21 05/02/22 lisinopril 5 mg tablet 1 tab PO DAILY 11/14/21 05/02/22 benztropine 1 mg tablet 1 mg PO DAILY 12/26/21 05/02/22 naproxen 500 mg tablet 1 tab PO BID 01/23/22 05/02/22 fluphenazine HCl 2.5 mg tablet 1 tab PO BEDTIME 03/19/22 05/02/22 fluphenazine HCl 5 mg tablet 1 tab PO BEDTIME 03/19/22 05/02/22 Previous Rx's Medication Instructions Recorded fluoxetine 20 mg capsule 40 mg PO DAILY 30 days #60 caps 09/29/21 mirtazapine 7.5 mg tablet 7.5 mg PO BEDTIME MRX1 30 days #60 10/18/21 tabs prazosin 1 mg capsule 4 mg PO BEDTIME 30 days #120 caps 10/18/21 ondansetron 4 mg disintegrating 4 mg PO Q6-8H PRN nausea and 02/04/22 tablet vomiting #14 tabs docusate sodium 100 mg capsule 100 mg PO BID Constipation #60 caps 02/07/22 (Colace) benzonatate 200 mg capsule 200 mg PO TID PRN cough #20 caps 03/21/22 Allergies Allergy/AdvReac Type Severity Reaction Status Date / Time Fish Containing Products Allergy Severe ANAPHYLAXIS Verified 05/06/22 20:47 codeine [Codeine] Allergy Unknown RASH Verified 05/06/22 20:47 Penicillins Allergy Unknown RASH Verified 05/06/22 20:47 prednisone [Prednisone] Allergy Unknown RASH Verified 05/06/22 20:47 Sulfa (Sulfonamide Allergy Unknown RASH Verified 05/06/22 20:47 Antibiotics) [Sulfa (Sulfonamides)] azithromycin [AZITHROMYCIN] AdvReac Severe RASH Verified 05/06/22 20:47 ziprasidone [From Geodon] AdvReac Intermediate dysuria, Verified 05/06/22 20:47 rash Review of Systems Review of Systems: Constitutional: No Fever, No Chills ENT/Mouth: No Ear Pain, No Nasal Congestion, No sore throat Eyes: No Eye Pain, No Swelling, No Redness Cardiovascular: No Chest Pain, No SOB Respiratory: No Cough, No Sputum, No Dyspnea Gastrointestinal: No Nausea, No Vomiting, No Diarrhea, No Hematochezia, No Melena Genitourinary: No Dysuria, No Urinary Frequency, No Hematuria Musculoskeletal: No Myalgias Skin: No Skin Lesions, No rash Neuro: No Weakness, No Numbness, No Paresthesias, No Dizziness, No Headache Psych: positive Anxiety, positive Depression, positive SI Heme/Lymph: No Lymphadenopathy Endocrine: No Polyuria, No Polydipsia Yes all other systems are reviewed and are negative PMFSH Past Medical History Attestation statement: The following information was validated with the patient. Source: old records reviewed Medical History Acetaminophen overdose Borderline personality disorder Bronchitis Depression Diabetes type 2, controlled GERD (gastroesophageal reflux disease) History of attempted suicide History of non-suicidal self-harm Hyperlipidemia Hypomagnesemia Major depression MDD (major depressive disorder), recurrent episode, severe Mood disorder Overdose PTSD (post-traumatic stress disorder) Suicide attempt Suicide attempt by acetaminophen overdose Social History Social History Household Members: None Household Members Other:: Patient lives in senior care. 4 in total live in senior care. Housing: Other Housing Other:: senior care Do you presently have visiting nurse or other home services: No Unable to assess alcohol history related to: Unknown Alcohol intake: never Patient Tobacco Use Status: Current everyday Tobacco user Tobacco use type: Cigarette Cigarette Packs Per Day: 1 Cigarettes Per Day: 20 Years Smoked: 20 e-Cigarette/Vaping Use: Never Used Substance Use Type: Marijuana Advance Directives: No Advance Directives Information Provided: No service: No Current occupational status: disabled Sexual orientation: Don't Know Physical Exam Vital Signs: Vital Signs: Last Vital Signs Temp 97.2 F 05/06/22 21:01 Pulse 81 05/06/22 21:01 Resp 20 05/06/22 21:01 BP 142/88 H 05/06/22 21:01 Pulse Ox 97 05/06/22 21:01 O2 Del Method 05/06/22 21:01 BMI result Body Mass Index 34.9 Appearance: Alert. Oriented X3. No acute distress. Eyes: Pupils equal, round and reactive to light. ENT: Pharynx normal. Neck: Normal inspection. Neck supple. CVS: Normal heart rate and rhythm. Pulses normal. Respiratory: No respiratory distress. Breath sounds normal. Abdomen: Soft and nontender. Skin: Skin warm and dry. Normal skin color. Normal skin turgor. Numerous healed scars from self-inflicted wounds. Extremities: No lower extremity edema. Neuro: No motor deficit. No sensory deficit. Cranial nerves 2-12 intact. Course Course Course Narrative: 46-year-old female presents via EMS for suicidal ideation. Plan is to overdose on Tylenol. Has had multiple presentations with Tylenol overdose in the past. Will order labs. Patient is alert oriented x4, answering questions politely and appropriately. Appears to be in no acute distress. Nontoxic afebrile. Will follow care plan Midnight. Patient states to feel safe. Would like to be discharged home. MDM - Psych Differential Diagnosis Differential diagnosis: Likely acute psychosis, suicidal ideation and depression Medical Records Attestation: I reviewed the patient's medical records. Lab Data Attestation: I reviewed the patient's lab results. Result diagrams: 05/06/22 20:57 05/06/22 20:57 Labs: Lab Results 05/06/22 05/06/22 Range/Units 20:57 20:57 WBC 6.8 (4.8-10.8) X10*3/uL RBC 3.74 L (4.20-5.50) X10*6/uL Hgb 10.9 L (12.0-16.0) g/dl Hct 33.1 L (37.0-47.0) % MCV 88.5 (80.0-98.0) fL MCH 29.1 (27.0-33.0) pg MCHC 32.9 (31.0-35.0) g/dl RDW 13.2 (11.0-16.0) % Plt Count 251 (160-400) X10*3/uL MPV 9.8 (9.4-12.3) fL Immature Gran % (Auto) 0.4 (0.0-0.4) % Neut % (Auto) 59.3 (45-73) % Lymph % (Auto) 28.8 (20-40) % [place] % (Auto) 7.4 (2-11) % Eos % (Auto) 3.7 (0-4) % Baso % (Auto) 0.4 (0-2) % Lymph # (Auto) 2.0 (1.2-4.9) X10*3/uL [place] # (Auto) 0.5 (0.1-1.2) X10*3/uL Eos # (Auto) 0.3 (0.0-0.4) X10*3/uL Baso # (Auto) 0.0 (0.0-0.2) X10*3/uL Abs Immat Gran (auto) 0.03 (0.00-0.03) X10*3/uL Absolute Neuts (auto) 4.0 (2.0-8.3) x10*3/uL Absolute Nucleated RBC 0.000 (0.0-0.012) X10*3/uL Nucleated RBC % (auto) 0.0 (0.0-0.2) /100WBC Sodium 139 (135-145) mmol/L Potassium 3.6 (3.3-5.1) mmol/L Chloride 107 (96-108) mmol/L Carbon Dioxide 24 (22-29) mmol/L Anion Gap 12 (12-20) BUN 9 (9-16) mg/dL Creatinine 0.74 (0.5-1.4) mg/dL Estim Creat Clear Calc 110.7 Estimated GFR > 60 Random Glucose 120 H (60-115) mg/dL Calcium 9.2 D (8.4-10.2) mg/dL Total Bilirubin < 0.2 (0.0-1.0) mg/dL Direct Bilirubin < 0.2 (0.0-0.5) mg/dL AST 12 (5-31) U/L ALT 13 (0-31) U/L Alkaline Phosphatase 102 (39-117) U/L Total Protein 7.0 (6.5-8.0) g/dL Albumin 4.5 (3.5-5.0) g/dL Lipase 19 (8-78) U/L Salicylates < 5.0 L (15-30) mg/dL Acetaminophen < 1 (<30) mcg/mL Discharge Plan Discharge Clinical Impression: Suicidal ideation Patient Disposition: Home, Self-Care Instructions: Suicide Prevention (ED) Additional Instructions: Follow-up with outpatient psychiatry Thank you for choosing this emergency department for evaluation. Please follow-up with primary care physician as needed. Return to the emergency department for any new, concerning, or worsening symptoms. Prescriptions: No Action metformin 500 mg tablet 1 tab PO BID atorvastatin 10 mg tablet 1 tab PO DAILY verapamil 240 mg tablet extended release 240 mg PO BEDTIME montelukast 10 mg tablet 1 tab PO BEDTIME fluticasone propionate [Flovent HFA] 110 mcg/actuation HFA aerosol inhaler 2 puff inhalation BID albuterol sulfate [Ventolin HFA] 90 mcg/actuation HFA aerosol inhaler 2 puff inhalation Q4H PRN (Reason: Shortness Of Breath) trazodone 150 mg tablet 150 mg PO BEDTIME PRN (Reason: insomnia) benztropine 1 mg tablet 1 mg PO DAILY naproxen 500 mg tablet 1 tab PO BID docusate sodium [Colace] 100 mg capsule 100 mg PO BID Qty: 60 0RF benzonatate 200 mg capsule 200 mg PO TID PRN (Reason: cough) Qty: 20 0RF fluoxetine 20 mg Capsule 40 mg PO DAILY 30 Days Qty: 60 0RF prazosin 1 mg Capsule 4 mg PO BEDTIME 30 Days Qty: 120 0RF Protocol: Hold for SBP< HOLD for SBP < : 90 mirtazapine 7.5 mg Tablet 7.5 mg PO BEDTIME MRX1 30 Days Qty: 60 0RF lisinopril 5 mg tablet 1 tab PO DAILY ondansetron 4 mg tablet,disintegrating 4 mg PO Q6-8H PRN (Reason: nausea and vomiting) Qty: 14 0RF fluphenazine HCl 2.5 mg tablet 1 tab PO BEDTIME fluphenazine HCl 5 mg tablet 1 tab PO BEDTIME
[2022-05-06 19:39] VITALS: BP 128/92; PULSE 102; O2SAT 98
[2022-05-06 20:47] VITALS: BMI 34.9
[2022-05-06 21:01] VITALS: BP 142/88; PULSE 81; RESP 20; TEMP 36.2; O2SAT 97
[2022-05-06 21:10] LABS: MANUAL DIFF FLAG NO
[2022-05-06 21:15] LABS: Basophils Percent Auto 0.4 % (0-2); Eosinophils Absolute Auto 0.3 X10*3/uL (0.0-0.4); Eosinophils Percent Auto 3.7 % (0-4); Hematocrit 33.1 % (37.0-47.0); Hemoglobin 10.9 g/dl (12.0-16.0); Imm Gran Abs Auto 0.03 X10*3/uL (0.00-0.03); Imm Gran Pct Auto 0.4 % (0.0-0.4); Lymphocytes Percent Auto 28.8 % (20-40); Mean Corpuscular HGB Conc 32.9 g/dl (31.0-35.0); Mean Corpuscular Hemoglobin 29.1 pg (27.0-33.0); Mean Corpuscular Volume 88.5 fL (80.0-98.0); Mean Platelet Volume 9.8 fL (9.4-12.3); Monocytes Absolute Auto 0.5 X10*3/uL (0.1-1.2); Monocytes Percent Auto 7.4 % (2-11); Neutrophils Percent Auto 59.3 % (45-73); Platelet Count 251 X10*3/uL (160-400); Red Blood Count 3.74 X10*6/uL (4.20-5.50); Red Cell Distribution Width 13.2 % (11.0-16.0); White Blood Count 6.8 X10*3/uL (4.8-10.8)
[2022-05-06 21:33] LABS: Alanine Aminotransferase 13 U/L (0-31); Albumin Level 4.5 g/dL (3.5-5.0); Alkaline Phosphatase 102 U/L (39-117); Anion Gap 12 (12-20); Aspartate Amino Transferase 12 U/L (5-31); Bilirubin Direct < 0.2 mg/dL (0.0-0.5); Bilirubin Total < 0.2 mg/dL (0.0-1.0); Blood Urea Nitrogen 9 mg/dL (9-16); Calcium 9.2 mg/dL (8.4-10.2); Carbon Dioxide 24 mmol/L (22-29); Chloride 107 mmol/L (96-108); Creatinine Clr Calc Pharmacy 110.7; Estimated Glomerular Filt Rate > 60; Glucose Random 120 mg/dL (60-115); Lipase 19 U/L (8-78); Potassium 3.6 mmol/L (3.3-5.1); Sodium 139 mmol/L (135-145)
[2022-05-06] MEDS: LORazepam 1 MG TABLET PO (23:16)
[2022-05-06 23:34] LABS: Acetaminophen LAB < 1 mcg/mL (<30); Salicylate < 5.0 mg/dL (15-30)
--- NOTE | 2022-05-07 09:35 | MHC.CARE ---
Yesterday evening pt was transported to this facility from the community via ambulance with a complaint of auditory hallucinations, depression, and suicidal ideation with plan to overdose on Tylenol.Pt reports that there has been a ?[facility] at the [facility] which she reports has been triggering for her and believes may be at the route of her SI.? Pt has been medically cleared and is being assessed by the CARE Team to determine risk. Pt has an extensive hx of inpt hospitalizations, and is known to engage in unsafe behavior when decompensated. Past documented hx of major depressive d/o, PTSD, and Borderline personality d/o. Pt has a hx of self-harm and suicide attempts. Pt is alert and oriented x4 and is assessed for risk by the CARE Team in the Main ED.? Pt is neat in appearance and appears older than her stated age.? She denies AH, SI, , HI and self-harm urges.? She states her sleep and appetite and sleep have been ?good?.? She reports her mood as good.? ? Pt?s demonstrates a full range of affect smiling often.? She stated that she has plans to go out with a friend from her day program this afternoon and is looking forward to that.? 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 Insight, judgement, memory, and concentration are fair and appear to be at her baseline.? Pt appears to be at her baseline at this time. The plan is for [facility] to be [facility] to the [facility].? CARE Team will secure transportation.? Pt will receive a follow up call to check on her progress this afternoon. This disposition was discussed with and agreed upon by ED Provider Dr Larson.
== END 2022-05-07 07:46 | disposition home or self-care (01) ==
PROVIDERS: Nurse Practitioner Family; Emergency Provider Emergency Medicine Emergency Medical Services; PCP Nurse Practitioner Family
DX: R45.851 Suicidal ideations (principal); F41.9 Anxiety disorder, unspecified; F33.2 Major depressive disorder, recurrent severe without psychotic features; F60.3 Borderline personality disorder; F43.10 Post-traumatic stress disorder, unspecified; E11.9 Type 2 diabetes mellitus without complications; E78.5 Hyperlipidemia, unspecified; F17.210 Nicotine dependence, cigarettes, uncomplicated; F12.90 Cannabis use, unspecified, uncomplicated; Z79.02 Long term (current) use of antithrombotics/antiplatelets; Z79.84 Long term (current) use of oral hypoglycemic drugs; Z79.899 Other long term (current) drug therapy; Z91.51 Personal history of suicidal behavior
CPT/HCPCS: 36415; 80048; 80076; 80143; 80179; 83690; 85025; 99283

== ENCOUNTER 2022-05-07 18:42 | Emergency (ER) | payer MEDICARE, MEDICAID, SELFPAY ==
--- NOTE | 2022-05-07 18:53 | ED.PSYCH ---
HPI - Psych General Chief Complaint: Psychiatric Symptoms <Henrietta FallonLILIAN teague - Last Filed: 05/07/22 20:52> Stated Complaint: SI <Henrietta WoodyLILIAN - Last Filed: 05/07/22 20:52> Time Seen by Provider: 05/07/22 18:45 <Henrietta Escamilla LILIAN Woody - Last Filed: 05/07/22 20:52> Source: patient <Henrietta WoodyLILIAN - Last Filed: 05/07/22 20:52> Mode of arrival: EMS <Henrietta WoodyLILIAN - Last Filed: 05/07/22 20:52> Limitations: no limitations <Henrietta FallonLILIAN teague - Last Filed: 05/07/22 20:52> History of Present Illness HPI Narrative: Patient presents emergency department from a intermediate for evaluation of suicidal ideations. She reports that she has been significantly more depressed lately than usual. She is having thoughts of overdosing with Tylenol, but states that she did not take any Tylenol today. Denies cutting herself. Denies homicidal ideations. Reports medication compliance. Denies fevers, chills, chest pain, palpitations shortness of breath, difficulty breathing nausea, vomiting, abdominal pain. <Henrietta FallonLILIAN teague - Last Filed: 05/07/22 20:52> Related Data Home Medications: Home Medications Medication Instructions Recorded Confirmed atorvastatin 10 mg tablet 1 tab PO DAILY 05/29/21 05/02/22 fluticasone propionate 110 2 puff inhalation BID 05/29/21 05/02/22 mcg/actuation HFA aerosol inhaler (Flovent HFA) metformin 500 mg tablet 1 tab PO BID 05/29/21 05/02/22 montelukast 10 mg tablet 1 tab PO BEDTIME 05/29/21 05/02/22 verapamil 240 mg tablet,extended 240 mg PO BEDTIME 05/29/21 05/02/22 release albuterol sulfate 90 mcg/actuation 2 puff inhalation Q4H PRN 06/15/21 05/02/22 aerosol inhaler (Ventolin HFA) Shortness Of Breath trazodone 150 mg tablet 150 mg PO BEDTIME PRN insomnia 11/05/21 05/02/22 lisinopril 5 mg tablet 1 tab PO DAILY 11/14/21 05/02/22 benztropine 1 mg tablet 1 mg PO DAILY 12/26/21 05/02/22 naproxen 500 mg tablet 1 tab PO BID 01/23/22 05/02/22 fluphenazine HCl 2.5 mg tablet 1 tab PO BEDTIME 03/19/22 05/02/22 fluphenazine HCl 5 mg tablet 1 tab PO BEDTIME 03/19/22 05/02/22 Previous Rx's Medication Instructions Recorded fluoxetine 20 mg capsule 40 mg PO DAILY 30 days #60 caps 09/29/21 mirtazapine 7.5 mg tablet 7.5 mg PO BEDTIME MRX1 30 days #60 10/18/21 tabs prazosin 1 mg capsule 4 mg PO BEDTIME 30 days #120 caps 10/18/21 ondansetron 4 mg disintegrating 4 mg PO Q6-8H PRN nausea and 02/04/22 tablet vomiting #14 tabs docusate sodium 100 mg capsule 100 mg PO BID Constipation #60 caps 02/07/22 (Colace) benzonatate 200 mg capsule 200 mg PO TID PRN cough #20 caps 03/21/22 <Henrietta Woody CNP - Last Filed: 05/07/22 20:52> Allergies/Adverse Reactions: Allergies Allergy/AdvReac Type Severity Reaction Status Date / Time Fish Containing Products Allergy Severe ANAPHYLAXIS Verified 05/06/22 20:47 codeine [Codeine] Allergy Unknown RASH Verified 05/06/22 20:47 Penicillins Allergy Unknown RASH Verified 05/06/22 20:47 prednisone [Prednisone] Allergy Unknown RASH Verified 05/06/22 20:47 Sulfa (Sulfonamide Allergy Unknown RASH Verified 05/06/22 20:47 Antibiotics) [Sulfa (Sulfonamides)] azithromycin [AZITHROMYCIN] AdvReac Severe RASH Verified 05/06/22 20:47 ziprasidone [From Geodon] AdvReac Intermediate dysuria, Verified 05/06/22 20:47 rash <Henrietta Woody CNP - Last Filed: 05/07/22 20:52> Review of Systems Review of Systems: Constitutional : No Fever, No Chills ENT/Mouth : No Ear Pain, No Nasal Congestion, No sore throat Eyes: No Eye Pain, No Swelling, No Redness Cardiovascular : No Chest Pain, No SOB Respiratory : No Cough, No Sputum, No Dyspnea Gastrointestinal : No Nausea, No Vomiting, No Diarrhea, No Hematochezia, No Melena Genitourinary : No Dysuria, No Urinary Frequency, No Hematuria Musculoskeletal : No Myalgias Skin : No Skin Lesions, No rash Neuro : No Weakness, No Numbness, No Paresthesias, No Dizziness, No Headache Psych : positive Anxiety, positive Depression, positive SI/HI Heme/Lymph: No Lymphadenopathy Endocrine : No Polyuria, No Polydipsia <Henrietta Woody CNP - Last Filed: 05/07/22 20:52> Yes all other systems are reviewed and are negative <Henrietta Woody CNP - Last Filed: 05/07/22 20:52> [facility] Past Medical History Attestation statement: The following information was validated with the patient. <Henrietta Woody CNP - Last Filed: 05/07/22 20:52> Source: old records reviewed <Henrietta Woody CNP - Last Filed: 05/07/22 20:52> Medical History: Medical History Acetaminophen overdose Borderline personality disorder Bronchitis Depression Diabetes type 2, controlled GERD (gastroesophageal reflux disease) History of attempted suicide History of non-suicidal self-harm Hyperlipidemia Hypomagnesemia Major depression MDD (major depressive disorder), recurrent episode, severe Mood disorder Overdose PTSD (post-traumatic stress disorder) Suicide attempt Suicide attempt by acetaminophen overdose <Henrietta Woody CNP - Last Filed: 05/07/22 20:52> Social History Social History: Social History Household Members: None Household Members Other:: Patient lives in intermediate. 4 in total live in intermediate. Housing: Other Housing Other:: intermediate Do you presently have visiting nurse or other home services: No Unable to assess alcohol history related to: Unknown Alcohol intake: never Patient Tobacco Use Status: Current everyday Tobacco user Tobacco use type: Cigarette Cigarette Packs Per Day: 1 Cigarettes Per Day: 20 Years Smoked: 20 e-Cigarette/Vaping Use: Never Used Substance Use Type: Marijuana Advance Directives: No Advance Directives Information Provided: No service: No Current occupational status: disabled Sexual orientation: Don't Know <Henrietta Woody CNP - Last Filed: 05/07/22 20:52> Physical Exam Vital Signs: Vital Signs: Last Vital Signs Temp 97.4 F 05/07/22 19:14 Pulse 85 05/07/22 19:14 Resp 16 05/07/22 19:14 BP 140/86 H 05/07/22 19:14 Pulse Ox 98 05/07/22 19:14 O2 Del Method 05/07/22 19:14 BMI result Body Mass Index 43.7 <Henrietta Woody CNP - Last Filed: 05/07/22 20:52> Vital Signs: Last Vital Signs Temp 97.4 F 05/07/22 19:14 Pulse 85 05/07/22 19:14 Resp 16 05/07/22 19:14 BP 140/86 H 05/07/22 19:14 Pulse Ox 98 05/07/22 19:14 O2 Del Method 05/07/22 19:14 BMI result Body Mass Index 43.7 <Raymond Contreras MD - Last Filed: 05/07/22 21:02> Appearance: Alert.?Oriented to person, place and time. No acute distress.?Normal affect. Eyes: Pupils equal, round and reactive to light.? ENT: Pharynx normal.?? Neck: Normal inspection.? Neck supple.?? CVS: Heart sounds normal. Normal heart rate and rhythm.? Pulses normal.?? Respiratory: No respiratory distress.? Lung sounds clear to auscultation bilaterally?? Abdomen: Soft and non-tender. Normoactive bowel sounds. No pulsatile mass.?? Skin: Skin warm and dry.? Normal skin color.? Normal skin turgor.?? Extremities: No lower extremity edema.? No calf ttp? Neuro: Moves all extremities spontaneously. Sensation intact bilaterally. CN II-XII intact. No focal neuro deficits. Ambulates with normal steady gait. <Henrietta Woody CNP - Last Filed: 05/07/22 20:52> Course Course Course Narrative: Patient is a 46-year-old female with a medical history of type 2 diabetes, GERD, hyperlipidemia, mood disorder, major depressive disorder, PTSD, borderline personality disorder, and prior suicide attempts; Tylenol overdose, and history of nonsuicidal self-harm by cutting. She is presenting for evaluation of suicidal ideations with a plan to overdose on Tylenol, she has presented to this facility in the hands we Tylenol overdoses. She is overall well appearing, vital signs are stable, no distress, common cooperative with staff, answering questions appropriately, Will obtain labs, refer to care team. Patient is requesting a nicotine patch, will order accordingly <Henrietta Woody CNP - Last Filed: 05/07/22 20:52> Reevaluation(s) Reevaluation #1: Labs unremarkable. Patient remains calm and cooperative. Continues to report SI. Will place in physician observation at this time so that she may be evaluated by care team. <Henrietta Woody CNP - Last Filed: 05/07/22 20:52> Time: 20:52 <Henrietta Woody CNP - Last Filed: 05/07/22 20:52> Reevaluation #2: Patient was evaluated by our crisis team. Patient is well-known and was here yesterday and [facility] earlier today. The patient was cleared and will be discharged back to her intermediate. <Raymond Contreras MD - Last Filed: 05/07/22 21:02> Time: 21:01 <Raymond Contreras MD - Last Filed: 05/07/22 21:02> MDM - Psych Medical Records Attestation: I reviewed the patient's medical records. <Henrietta Woody CNP - Last Filed: 05/07/22 20:52> Lab Data Attestation: I reviewed the patient's lab results. <Henrietta Woody CNP - Last Filed: 05/07/22 20:52> Result diagrams: : 05/07/22 19:20 05/07/22 19:20 <Henrietta Woody CNP - Last Filed: 05/07/22 20:52> Labs: Lab Results 05/07/22 05/07/22 Range/Units 19:20 19:20 WBC 7.0 (4.8-10.8) X10*3/uL RBC 3.80 L (4.20-5.50) X10*6/uL Hgb 11.2 L (12.0-16.0) g/dl Hct 33.6 L (37.0-47.0) % MCV 88.4 (80.0-98.0) fL MCH 29.5 (27.0-33.0) pg MCHC 33.3 (31.0-35.0) g/dl RDW 13.2 (11.0-16.0) % Plt Count 266 (160-400) X10*3/uL MPV 9.8 (9.4-12.3) fL Immature Gran % (Auto) 0.4 (0.0-0.4) % Neut % (Auto) 63.8 (45-73) % Lymph % (Auto) 24.8 (20-40) % Spink % (Auto) 7.6 (2-11) % Eos % (Auto) 3.0 (0-4) % Baso % (Auto) 0.4 (0-2) % Lymph # (Auto) 1.7 (1.2-4.9) X10*3/uL Spink # (Auto) 0.5 (0.1-1.2) X10*3/uL Eos # (Auto) 0.2 (0.0-0.4) X10*3/uL Baso # (Auto) 0.0 (0.0-0.2) X10*3/uL Abs Immat Gran (auto) 0.03 (0.00-0.03) X10*3/uL Absolute Neuts (auto) 4.5 (2.0-8.3) x10*3/uL Absolute Nucleated RBC 0.000 (0.0-0.012) X10*3/uL Nucleated RBC % (auto) 0.0 (0.0-0.2) /100WBC Sodium 139 (135-145) mmol/L Potassium 3.8 (3.3-5.1) mmol/L Chloride 106 (96-108) mmol/L Carbon Dioxide 24 (22-29) mmol/L Anion Gap 13 (12-20) BUN 8 L (9-16) mg/dL Creatinine 0.74 (0.5-1.4) mg/dL Estim Creat Clear Calc 121.0 Estimated GFR > 60 Random Glucose 96 (60-115) mg/dL Calcium 9.1 (8.4-10.2) mg/dL Total Bilirubin 0.2 (0.0-1.0) mg/dL AST 13 (5-31) U/L ALT 14 (0-31) U/L Alkaline Phosphatase 90 (39-117) U/L Total Protein 6.9 (6.5-8.0) g/dL Albumin 4.4 (3.5-5.0) g/dL Lipase 15 (8-78) U/L Salicylates < 5.0 L (15-30) mg/dL Acetaminophen < 1 (<30) mcg/mL <Henrietta Woody, CHICK[employer]ER - Last Filed: 05/07/22 20:52> Lab Results 05/07/22 05/07/22 Range/Units 19:20 19:20 WBC 7.0 (4.8-10.8) X10*3/uL RBC 3.80 L (4.20-5.50) X10*6/uL Hgb 11.2 L (12.0-16.0) g/dl Hct 33.6 L (37.0-47.0) % MCV 88.4 (80.0-98.0) fL MCH 29.5 (27.0-33.0) pg MCHC 33.3 (31.0-35.0) g/dl RDW 13.2 (11.0-16.0) % Plt Count 266 (160-400) X10*3/uL MPV 9.8 (9.4-12.3) fL Immature Gran % (Auto) 0.4 (0.0-0.4) % Neut % (Auto) 63.8 (45-73) % Lymph % (Auto) 24.8 (20-40) % Spink % (Auto) 7.6 (2-11) % Eos % (Auto) 3.0 (0-4) % Baso % (Auto) 0.4 (0-2) % Lymph # (Auto) 1.7 (1.2-4.9) X10*3/uL Spink # (Auto) 0.5 (0.1-1.2) X10*3/uL Eos # (Auto) 0.2 (0.0-0.4) X10*3/uL Baso # (Auto) 0.0 (0.0-0.2) X10*3/uL Abs Immat Gran (auto) 0.03 (0.00-0.03) X10*3/uL Absolute Neuts (auto) 4.5 (2.0-8.3) x10*3/uL Absolute Nucleated RBC 0.000 (0.0-0.012) X10*3/uL Nucleated RBC % (auto) 0.0 (0.0-0.2) /100WBC Sodium 139 (135-145) mmol/L Potassium 3.8 (3.3-5.1) mmol/L Chloride 106 (96-108) mmol/L Carbon Dioxide 24 (22-29) mmol/L Anion Gap 13 (12-20) BUN 8 L (9-16) mg/dL Creatinine 0.74 (0.5-1.4) mg/dL Estim Creat Clear Calc 121.0 Estimated GFR > 60 Random Glucose 96 (60-115) mg/dL Calcium 9.1 (8.4-10.2) mg/dL Total Bilirubin 0.2 (0.0-1.0) mg/dL AST 13 (5-31) U/L ALT 14 (0-31) U/L Alkaline Phosphatase 90 (39-117) U/L Total Protein 6.9 (6.5-8.0) g/dL Albumin 4.4 (3.5-5.0) g/dL Lipase 15 (8-78) U/L Salicylates < 5.0 L (15-30) mg/dL Acetaminophen < 1 (<30) mcg/mL <Raymond Contreras MD - Last Filed: 05/07/22 21:02> Discharge Plan Discharge Clinical Impression: Suicidal ideation <Henrietta Woody CNP - Last Filed: 05/07/22 20:52> Patient Disposition: Home, Self-Care <Henrietta Woody CNP - Last Filed: 05/07/22 20:52> Additional Instructions: You were evaluated by our crisis team and your being discharged. At this time your being discharged back your intermediate. Follow-up with your doctor in 2 days. Please return to the emergency department if your symptoms get worse or if you develop any symptoms that are concerning to you. <Henrietta Woody CNP - Last Filed: 05/07/22 20:52> Prescriptions: No Action metformin 500 mg tablet 1 tab PO BID atorvastatin 10 mg tablet 1 tab PO DAILY verapamil 240 mg tablet extended release 240 mg PO BEDTIME montelukast 10 mg tablet 1 tab PO BEDTIME fluticasone propionate [Flovent HFA] 110 mcg/actuation HFA aerosol inhaler 2 puff inhalation BID albuterol sulfate [Ventolin HFA] 90 mcg/actuation HFA aerosol inhaler 2 puff inhalation Q4H PRN (Reason: Shortness Of Breath) trazodone 150 mg tablet 150 mg PO BEDTIME PRN (Reason: insomnia) benztropine 1 mg tablet 1 mg PO DAILY naproxen 500 mg tablet 1 tab PO BID docusate sodium [Colace] 100 mg capsule 100 mg PO BID Qty: 60 0RF benzonatate 200 mg capsule 200 mg PO TID PRN (Reason: cough) Qty: 20 0RF fluoxetine 20 mg Capsule 40 mg PO DAILY 30 Days Qty: 60 0RF prazosin 1 mg Capsule 4 mg PO BEDTIME 30 Days Qty: 120 0RF Protocol: Hold for SBP< HOLD for SBP < : 90 mirtazapine 7.5 mg Tablet 7.5 mg PO BEDTIME MRX1 30 Days Qty: 60 0RF lisinopril 5 mg tablet 1 tab PO DAILY ondansetron 4 mg tablet,disintegrating 4 mg PO Q6-8H PRN (Reason: nausea and vomiting) Qty: 14 0RF fluphenazine HCl 2.5 mg tablet 1 tab PO BEDTIME fluphenazine HCl 5 mg tablet 1 tab PO BEDTIME <Henrietta Woody CNP - Last Filed: 05/07/22 20:52>
[2022-05-07 18:57] VITALS: BMI 43.7
[2022-05-07 19:14] VITALS: BP 140/86; PULSE 85; RESP 16; TEMP 36.3; O2SAT 98
[2022-05-07 19:27] LABS: MANUAL DIFF FLAG NO
[2022-05-07 19:37] LABS: Basophils Percent Auto 0.4 % (0-2); Eosinophils Absolute Auto 0.2 X10*3/uL (0.0-0.4); Hematocrit 33.6 % (37.0-47.0); Hemoglobin 11.2 g/dl (12.0-16.0); Imm Gran Abs Auto 0.03 X10*3/uL (0.00-0.03); Imm Gran Pct Auto 0.4 % (0.0-0.4); Lymphocytes Absolute Auto 1.7 X10*3/uL (1.2-4.9); Lymphocytes Percent Auto 24.8 % (20-40); Mean Corpuscular HGB Conc 33.3 g/dl (31.0-35.0); Mean Corpuscular Hemoglobin 29.5 pg (27.0-33.0); Mean Corpuscular Volume 88.4 fL (80.0-98.0); Mean Platelet Volume 9.8 fL (9.4-12.3); Monocytes Absolute Auto 0.5 X10*3/uL (0.1-1.2); Monocytes Percent Auto 7.6 % (2-11); Neutrophils Absolute Auto 4.5 x10*3/uL (2.0-8.3); Neutrophils Percent Auto 63.8 % (45-73); Platelet Count 266 X10*3/uL (160-400); Red Cell Distribution Width 13.2 % (11.0-16.0)
[2022-05-07 19:52] LABS: Bilirubin Total 0.2 mg/dL (0.0-1.0)
[2022-05-07 19:53] LABS: Alanine Aminotransferase 14 U/L (0-31); Albumin Level 4.4 g/dL (3.5-5.0); Alkaline Phosphatase 90 U/L (39-117); Anion Gap 13 (12-20); Aspartate Amino Transferase 13 U/L (5-31); Blood Urea Nitrogen 8 mg/dL (9-16); Calcium 9.1 mg/dL (8.4-10.2); Carbon Dioxide 24 mmol/L (22-29); Chloride 106 mmol/L (96-108); Estimated Glomerular Filt Rate > 60; Glucose Random 96 mg/dL (60-115); Lipase 15 U/L (8-78); Potassium 3.8 mmol/L (3.3-5.1); Sodium 139 mmol/L (135-145); Total Protein 6.9 g/dL (6.5-8.0)
[2022-05-07 20:04] LABS: Acetaminophen LAB < 1 mcg/mL (<30); Salicylate < 5.0 mg/dL (15-30)
[2022-05-07] MEDS: Nicotine 21 MG PATCH.TD24 TRANSDERMA (20:43)
--- NOTE | 2022-05-07 21:02 | MHC.CARE ---
CARE team consult received for pt who arrived to the ED via ambulance endorsing command auditory hallucinations and SI with plan to overdose with medications. On arrival pt reported that she doesn't feel safe at her fpc. This law writer met with the pt in the main ED 18H bed. Pt is well known to this law writer and engaged easily on approach, quickly asking if she can go home. She reported that she is feeling better and doesn't know what's wrong with her, stating that she keeps having the panic attacks. Pt discharged from the ED earlier this afternoon and returned home, and she reported that shortly after she got back to her f[facility] that she called EMS and was transported to [facility] ED, then discharged back home again before calling and being brought back to this ED. This law writer spoke with the pt about her utilizing the fpc staff and requesting her PRN medications before calling 911, which pt responded I don't know, I don't know why I don't do that. Pt denied having intent to harm herself and stated that she doesn't have money to purchase the means for an overdose. She has her day program in the morning and is looking forward to going. Pt does not require further evaluation at this time and has been cleared for discharge.
== END 2022-05-08 05:58 | disposition home or self-care (01) ==
PROVIDERS: Nurse Practitioner Family; Emergency Provider Emergency Medicine Emergency Medical Services; PCP Nurse Practitioner Family
DX: F33.1 Major depressive disorder, recurrent, moderate (principal); R45.851 Suicidal ideations; F17.210 Nicotine dependence, cigarettes, uncomplicated; Z71.6 Tobacco abuse counseling; F12.90 Cannabis use, unspecified, uncomplicated; Z79.899 Other long term (current) drug therapy
CPT/HCPCS: 36415; 80053; 80143; 80179; 83690; 85025; 99283

== ENCOUNTER 2022-05-08 19:15 | Emergency (ER) | payer MEDICARE, MEDICAID, SELFPAY ==
[2022-05-08 19:27] VITALS: BP 113/74; PULSE 101; RESP 18; TEMP 36.3; O2SAT 97; BMI 36.0
--- NOTE | 2022-05-08 19:34 | ED_ITS ---
HPI - Psych General Chief Complaint: Psychiatric Symptoms Stated Complaint: crisis eval Time Seen by Provider: 05/08/22 19:32 Source: patient and EMS Mode of arrival: EMS Limitations: no limitations History of Present Illness HPI Narrative: Patient comes to the emergency room complaining of suicidal ideation. This is the patient's 17th visit in 1 month. Patient states that she has thought about overdosing with Tylenol. Patient states that she did not cut today or use any medications. Related Data Home Medications Medication Instructions Recorded Confirmed atorvastatin 10 mg tablet 1 tab PO DAILY 05/29/21 05/02/22 fluticasone propionate 110 2 puff inhalation BID 05/29/21 05/02/22 mcg/actuation HFA aerosol inhaler (Flovent HFA) metformin 500 mg tablet 1 tab PO BID 05/29/21 05/02/22 montelukast 10 mg tablet 1 tab PO BEDTIME 05/29/21 05/02/22 verapamil 240 mg tablet,extended 240 mg PO BEDTIME 05/29/21 05/02/22 release albuterol sulfate 90 mcg/actuation 2 puff inhalation Q4H PRN 06/15/21 05/02/22 aerosol inhaler (Ventolin HFA) Shortness Of Breath trazodone 150 mg tablet 150 mg PO BEDTIME PRN insomnia 11/05/21 05/02/22 lisinopril 5 mg tablet 1 tab PO DAILY 11/14/21 05/02/22 benztropine 1 mg tablet 1 mg PO DAILY 12/26/21 05/02/22 naproxen 500 mg tablet 1 tab PO BID 01/23/22 05/02/22 fluphenazine HCl 2.5 mg tablet 1 tab PO BEDTIME 03/19/22 05/02/22 fluphenazine HCl 5 mg tablet 1 tab PO BEDTIME 03/19/22 05/02/22 Previous Rx's Medication Instructions Recorded fluoxetine 20 mg capsule 40 mg PO DAILY 30 days #60 caps 09/29/21 mirtazapine 7.5 mg tablet 7.5 mg PO BEDTIME MRX1 30 days #60 10/18/21 tabs prazosin 1 mg capsule 4 mg PO BEDTIME 30 days #120 caps 10/18/21 ondansetron 4 mg disintegrating 4 mg PO Q6-8H PRN nausea and 02/04/22 tablet vomiting #14 tabs docusate sodium 100 mg capsule 100 mg PO BID Constipation #60 caps 02/07/22 (Colace) benzonatate 200 mg capsule 200 mg PO TID PRN cough #20 caps 03/21/22 Allergies Allergy/AdvReac Type Severity Reaction Status Date / Time Fish Containing Products Allergy Severe ANAPHYLAXIS Verified 05/06/22 20:47 codeine [Codeine] Allergy Unknown RASH Verified 05/06/22 20:47 Penicillins Allergy Unknown RASH Verified 05/06/22 20:47 prednisone [Prednisone] Allergy Unknown RASH Verified 05/06/22 20:47 Sulfa (Sulfonamide Allergy Unknown RASH Verified 05/06/22 20:47 Antibiotics) [Sulfa (Sulfonamides)] azithromycin [AZITHROMYCIN] AdvReac Severe RASH Verified 05/06/22 20:47 ziprasidone [From Geodon] AdvReac Intermediate dysuria, Verified 05/06/22 20:47 rash Review of Systems Review of Systems: Constitutional : No Weight loss, No Fever, No Chills, No Night Sweats, No Fatigue, No Malaise ENT/Mouth : No Hearing loss, No Ear Pain, No Nasal Congestion, No Sinus Pain, No Hoarseness, No sore throat, No Rhinorrhea, No Swallowing Difficulty Eyes: No Eye Pain, No Swelling, No Redness, No Foreign Body, No Discharge, No Vision Changes Cardiovascular : No Chest Pain, No SOB, No Dyspnea on Exertion, No Orthopnea, No Edema, No Palpitations Respiratory : No Cough, No Sputum, No Wheezing, No Smoke Exposure, No Dyspnea Gastrointestinal : No Nausea, No Vomiting, No Diarrhea, No Constipation, No abdominal Pain, No Hematochezia, No Melena Genitourinary : no irregular bleeding, No Dysuria, No Urinary Frequency, No Hematuria, No Urinary Incontinence, No Urgency, No Flank Pain, No Urinary Flow Changes, No Hesitancy Musculoskeletal : No joint pain, No Myalgias, No Joint Swelling Skin : No Skin Lesions, No rash Neuro : No Weakness, No Numbness, No Paresthesias, No Loss of Consciousness, No Dizziness, No Headache Psych : Complaining of anxiety, depression and suicidal ideation Heme/Lymph: No Bruising, No Bleeding,No Lymphadenopathy Endocrine : No Polyuria, No Polydipsia, No Temperature Intolerance PMFSH Past Medical History Medical History Acetaminophen overdose Borderline personality disorder Bronchitis Depression Diabetes type 2, controlled GERD (gastroesophageal reflux disease) History of attempted suicide History of non-suicidal self-harm Hyperlipidemia Hypomagnesemia Major depression MDD (major depressive disorder), recurrent episode, severe Mood disorder Overdose PTSD (post-traumatic stress disorder) Suicide attempt Suicide attempt by acetaminophen overdose Social History Social History Household Members: None Household Members Other:: Patient lives in skilled nursing. 4 in total live in skilled nursing. Housing: Other Housing Other:: skilled nursing Do you presently have visiting nurse or other home services: No Unable to assess alcohol history related to: Unknown Alcohol intake: never Patient Tobacco Use Status: Current everyday Tobacco user Tobacco use type: Cigarette Cigarette Packs Per Day: 1 Cigarettes Per Day: 20 Years Smoked: 20 e-Cigarette/Vaping Use: Never Used Substance Use Type: Marijuana Advance Directives: No Advance Directives Information Provided: No service: No Current occupational status: disabled Sexual orientation: Don't Know Physical Exam Vital Signs: Vital Signs: Last Vital Signs Temp 97.4 F 05/08/22 19:27 Pulse 101 H 05/08/22 19:27 Resp 18 05/08/22 19:27 BP 113/74 05/08/22 19:27 Pulse Ox 97 05/08/22 19:27 O2 Del Method 05/08/22 19:27 BMI result Body Mass Index 36.0 Const: Other: Appearance: Alert. Oriented X3. No acute distress. Eyes: Pupils equal, round and reactive to light. ENT: Pharynx normal. Neck: Normal inspection. Neck supple. No lymph nodes noted. No crepitus CVS: Normal heart rate and rhythm. Pulses normal. Normal S1 and S2 Respiratory: No respiratory distress. Breath sounds normal. No Wheezing. No rales Abdomen: Soft and nontender. No rigidity. No distention. Skin: Skin warm and dry. Normal skin color. Normal skin turgor. Extremities: No lower extremity edema. No Lacerations. No Rash Neuro: Oriented X 3. No motor deficit. No sensory deficit. Moving all extremities. No slurred speech. CN 2 through 12 grossly intact Psych: calm, cooperative, normal affect Course Course Course Narrative: Behavioral health network consult pending. Physician observation started at 19:45 Sign-out given to Dr. Ruano Discharge Plan Discharge Clinical Impression: Suicide ideation Patient Disposition: Still a Patient Prescriptions: No Action metformin 500 mg tablet 1 tab PO BID atorvastatin 10 mg tablet 1 tab PO DAILY verapamil 240 mg tablet extended release 240 mg PO BEDTIME montelukast 10 mg tablet 1 tab PO BEDTIME fluticasone propionate [Flovent HFA] 110 mcg/actuation HFA aerosol inhaler 2 puff inhalation BID albuterol sulfate [Ventolin HFA] 90 mcg/actuation HFA aerosol inhaler 2 puff inhalation Q4H PRN (Reason: Shortness Of Breath) trazodone 150 mg tablet 150 mg PO BEDTIME PRN (Reason: insomnia) benztropine 1 mg tablet 1 mg PO DAILY naproxen 500 mg tablet 1 tab PO BID docusate sodium [Colace] 100 mg capsule 100 mg PO BID Qty: 60 0RF benzonatate 200 mg capsule 200 mg PO TID PRN (Reason: cough) Qty: 20 0RF fluoxetine 20 mg Capsule 40 mg PO DAILY 30 Days Qty: 60 0RF prazosin 1 mg Capsule 4 mg PO BEDTIME 30 Days Qty: 120 0RF Protocol: Hold for SBP< HOLD for SBP < : 90 mirtazapine 7.5 mg Tablet 7.5 mg PO BEDTIME MRX1 30 Days Qty: 60 0RF lisinopril 5 mg tablet 1 tab PO DAILY ondansetron 4 mg tablet,disintegrating 4 mg PO Q6-8H PRN (Reason: nausea and vomiting) Qty: 14 0RF fluphenazine HCl 2.5 mg tablet 1 tab PO BEDTIME fluphenazine HCl 5 mg tablet 1 tab PO BEDTIME
[2022-05-08 20:04] LABS: Appearance Urine CLEAR; Color Urine YELLOW; Glucose Urine UA NEG (NEG); Leukocyte Esterase Urine NEG (NEG); Nitrite Urine NEG (NEG); PH 5.5 (5.0-8.0); Specific Gravity - Urine <= 1.005 (1.005-1.025); Urine Blood NEG (NEG); Urine Ketones NEG (NEG); Urine Protein NEG (NEG-TRACE)
[2022-05-08 20:22] LABS: COVID-19 Test Negative (Negative)
[2022-05-08 20:50] LABS: Baso%MD 0.3 %; Eos%MD 2.3 %; Hematocrit 33.7 % (37.0-47.0); Hemoglobin 11.1 g/dl (12.0-16.0); IG%MD 0.3 %; Mean Corpuscular HGB Conc 32.9 g/dl (31.0-35.0); Mean Corpuscular Hemoglobin 29.1 pg (27.0-33.0); Mean Corpuscular Volume 88.2 fL (80.0-98.0); Mean Platelet Volume 9.9 fL (9.4-12.3); Mono%MD 6.8 %; Neut%MD 68.3 %; Platelet Count 252 X10*3/uL (160-400); Red Blood Count 3.82 X10*6/uL (4.20-5.50); Red Cell Distribution Width 13.2 % (11.0-16.0)
[2022-05-08 21:03] LABS: Acetaminophen LAB < 1 mcg/mL (<30); Anion Gap 12 (12-20); Blood Urea Nitrogen 11 mg/dL (9-16); Carbon Dioxide 24 mmol/L (22-29); Chloride 107 mmol/L (96-108); Creatinine Clr Calc Pharmacy 105.7; Estimated Glomerular Filt Rate > 60; Glucose Random 99 mg/dL (60-115); Potassium 3.6 mmol/L (3.3-5.1); Sodium 139 mmol/L (135-145)
[2022-05-08 21:34] LABS: Eosinophils Absolute Manual 0.2 X10*3/uL (0.0-0.4); Eosinophils Percent Manual 2 % (0-4); Lymphocytes Absolute Manual 2.3 X10*3/uL (1.2-4.9); Lymphocytes Percent Manual 25 % (20-40); Metamyelocytes Absolute 0.1 X10*3/uL; Metamyelocytes Percent 1 %; Monocytes Absolute Manual 0.6 X10*3/uL (0.1-1.2); Monocytes Percent Manual 7 % (2-11); Neutrophils Percent Manual 65 % (45-73)
[2022-05-08 21:35] LABS: Acanthocytes 1+ (0-2) /OIF; Burr Cells 1+ (0-2) /OIF; Large Platelet PRESENT; Ovalocytes 1+ (5-14) /OIF; Platelet Estimate NORMAL (NORMAL); Platelet Morphology Comment NORMAL; Polychromasia 1+ (0-2) /OIF; RBC Morphology NORMAL; Tear Drop Cells 1+ (0-2) /OIF
--- NOTE | 2022-05-08 21:40 | PC.NURSE ---
BAN online referral completed by this RN.
[2022-05-08 21:47] LABS: Amphetamine Screen Urine Not Detected (Not Detect); Barbiturates, Urine Not Detected (Not Detect); Benzodiazepines Screen Urine Not Detected (Not Detect); Cannabinoid Screen Urine Not Detected (Not Detect); Cocaine Screen Urine Not Detected (Not Detect); Fentanyl, urine Not Detected (Not Detect); Opiate Screen Urine Not Detected (Not Detect); Phencyclidine Screen Urine Not Detected (Not Detect)
[2022-05-08 22:09] LABS: Band Neutrophils Percent 0 % (3-5); Neutrophils Absolute Manual 5.9 X10*3/uL (2.0-8.3)
[2022-05-09 01:04] VITALS: BP 113/65; PULSE 73; RESP 16; TEMP 36.4; O2SAT 97
--- NOTE | 2022-05-09 06:40 | PC.NURSE ---
Pt sleeping through the night with sitter @ bedside. This RN speaking with Care Team, plan for Care Team to arrange Lyft back to skilled nursing.
--- NOTE | 2022-05-09 06:49 | PC.NURSE ---
Lucita has been resting, sleeping in 22H recliner with a 1:1 at bedside throughout her ER stay. pt was evaluated by Matty last night who feels the pt will be able to be discharged this morning with appropriate follow up care scheduled. Whn awake pt has been calm and cooperative and denies SI or HI to me.
--- NOTE | 2022-05-09 07:45 | MHC.CARE ---
Yesterday evening pt was transported to this facility from the community via ambulance with a complaint of command auditory hallucinations, depression, and suicidal ideation with plan to overdose on Tylenol. Pt cannot identify any triggering event that may have caused her sx.? She reports no attempt to overdose as she had expressed and no self-harm on 05/08. Pt has been medically cleared and is being assessed by the CARE Team to determine risk. Pt has an extensive hx of inpt hospitalizations, and is known to engage in unsafe behavior when decompensated. Past documented hx of major depressive d/o, PTSD, and Borderline personality d/o. Pt has a hx of self-harm and suicide attempts. Pt is alert and oriented x4 and is assessed for risk by the CARE Team in the Main ED.? Pt is neat in appearance and appears older than her stated age.? She denies AH, SI, , HI and self-harm urges.? She states her sleep and appetite and sleep have been ?good?.? She reports her mood as ?depressed? but is unable to attribute this depression to anything specific.? She did report some changes in her home environment, the largest and perhaps most impactful being a new staff member.? She stated that change in staff and residents can sometimes be anxiety provoking and trigger her sx.? ? Pt?s affect is flat.? ?Insight, judgement, memory, and concentration are fair and appear to be at her baseline.? Pt appears to be at her baseline at this time. The plan is for [facility] to be [facility] the [facility] CARE Team will secure transportation.? Pt will receive a follow up call to check on her progress this afternoon. This disposition was discussed with and agreed upon by ED Provider Dr Quintero and pt?s nurse WALKER Reyes.
== END 2022-05-09 07:57 | disposition home or self-care (01) ==
PROVIDERS: Emergency Provider Emergency Medicine; PCP Nurse Practitioner Family
DX: F33.1 Major depressive disorder, recurrent, moderate (principal); R45.851 Suicidal ideations; F17.210 Nicotine dependence, cigarettes, uncomplicated; Z71.6 Tobacco abuse counseling; Z20.822 Contact with and (suspected) exposure to COVID-19; Z79.899 Other long term (current) drug therapy
CPT/HCPCS: 36415; 80048; 80143; 80307; 81003; 85007; 85027; 87635; 99284

== ENCOUNTER 2022-05-13 20:22 | Emergency (ER) | payer MEDICARE, MEDICAID, SELFPAY ==
[2022-05-13 20:27] VITALS: BP 142/94; PULSE 88; RESP 18; TEMP 36.1; O2SAT 95; BMI 38.7
[2022-05-13 20:47] LABS: Appearance Urine CLEAR; Color Urine STRAW; Glucose Urine UA NEG (NEG); Leukocyte Esterase Urine NEG (NEG); Nitrite Urine NEG (NEG); PH 5.5 (5.0-8.0); Specific Gravity - Urine <= 1.005 (1.005-1.025); Urine Blood NEG (NEG); Urine Ketones NEG (NEG); Urine Protein NEG (NEG-TRACE)
[2022-05-13 20:49] LABS: UPreg QC Valid YES; Urine Pregnancy NEGATIVE (NEGATIVE)
--- NOTE | 2022-05-13 21:07 | ED.PSYCH ---
HPI - Psych General Chief Complaint: Psychiatric Symptoms Stated Complaint: seizure Time Seen by Provider: 05/13/22 21:07 Source: patient and EMS Mode of arrival: EMS Limitations: no limitations History of Present Illness HPI Narrative: Patient comes to the emergency room via EMS complaining of suicidal ideation. Patient is well-known to our facility. Today, patient ran out of her long term, called EMS stating that she is hearing voices, telling her to overdose with aspirin. Patient states she did not take any aspirin or acetaminophen, no new scratches/lacerations to the skin. Related Data Home Medications Medication Instructions Recorded Confirmed atorvastatin 10 mg tablet 1 tab PO DAILY 05/29/21 05/13/22 fluticasone propionate 110 2 puff inhalation BID 05/29/21 05/13/22 mcg/actuation HFA aerosol inhaler (Flovent HFA) metformin 500 mg tablet 1 tab PO BID 05/29/21 05/13/22 montelukast 10 mg tablet 1 tab PO BEDTIME 05/29/21 05/13/22 verapamil 240 mg tablet,extended 240 mg PO BEDTIME 05/29/21 05/13/22 release albuterol sulfate 90 mcg/actuation 2 puff inhalation Q4H PRN 06/15/21 05/13/22 aerosol inhaler (Ventolin HFA) Shortness Of Breath trazodone 150 mg tablet 150 mg PO BEDTIME PRN insomnia 11/05/21 05/13/22 lisinopril 5 mg tablet 1 tab PO DAILY 11/14/21 05/13/22 benztropine 1 mg tablet 1 mg PO DAILY 12/26/21 05/13/22 naproxen 500 mg tablet 1 tab PO BID 01/23/22 05/13/22 fluphenazine HCl 2.5 mg tablet 1 tab PO BEDTIME 03/19/22 05/13/22 fluphenazine HCl 5 mg tablet 1 tab PO BEDTIME 03/19/22 05/13/22 Previous Rx's Medication Instructions Recorded fluoxetine 20 mg capsule 40 mg PO DAILY 30 days #60 caps 09/29/21 mirtazapine 7.5 mg tablet 7.5 mg PO BEDTIME MRX1 30 days #60 10/18/21 tabs prazosin 1 mg capsule 4 mg PO BEDTIME 30 days #120 caps 10/18/21 ondansetron 4 mg disintegrating 4 mg PO Q6-8H PRN nausea and 02/04/22 tablet vomiting #14 tabs docusate sodium 100 mg capsule 100 mg PO BID Constipation #60 caps 02/07/22 (Colace) Allergies Allergy/AdvReac Type Severity Reaction Status Date / Time Fish Containing Products Allergy Severe ANAPHYLAXIS Verified 05/06/22 20:47 codeine [Codeine] Allergy Unknown RASH Verified 05/06/22 20:47 Penicillins Allergy Unknown RASH Verified 05/06/22 20:47 prednisone [Prednisone] Allergy Unknown RASH Verified 05/06/22 20:47 Sulfa (Sulfonamide Allergy Unknown RASH Verified 05/06/22 20:47 Antibiotics) [Sulfa (Sulfonamides)] azithromycin [AZITHROMYCIN] AdvReac Severe RASH Verified 05/06/22 20:47 ziprasidone [From Geodon] AdvReac Intermediate dysuria, Verified 05/06/22 20:47 rash Review of Systems Review of Systems: Constitutional : No Weight loss, No Fever, No Chills, No Night Sweats, No Fatigue, No Malaise ENT/Mouth : No Hearing loss, No Ear Pain, No Nasal Congestion, No Sinus Pain, No Hoarseness, No sore throat, No Rhinorrhea, No Swallowing Difficulty Eyes: No Eye Pain, No Swelling, No Redness, No Foreign Body, No Discharge, No Vision Changes Cardiovascular : No Chest Pain, No SOB, No Dyspnea on Exertion, No Orthopnea, No Edema, No Palpitations Respiratory : No Cough, No Sputum, No Wheezing, No Smoke Exposure, No Dyspnea Gastrointestinal : No Nausea, No Vomiting, No Diarrhea, No Constipation, No abdominal Pain, No Hematochezia, No Melena Genitourinary : no irregular bleeding, No Dysuria, No Urinary Frequency, No Hematuria, No Urinary Incontinence, No Urgency, No Flank Pain, No Urinary Flow Changes, No Hesitancy Musculoskeletal : No joint pain, No Myalgias, No Joint Swelling Skin : No Skin Lesions, No rash Neuro : No Weakness, No Numbness, No Paresthesias, No Loss of Consciousness, No Dizziness, No Headache Psych : Complaining of suicidal ideation, no homicidal ideation, complaining of hearing voices telling her to overdose with aspirin Heme/Lymph: No Bruising, No Bleeding,No Lymphadenopathy Endocrine : No Polyuria, No Polydipsia, No Temperature Intolerance PMFSH Past Medical History Medical History Acetaminophen overdose Borderline personality disorder Bronchitis Depression Diabetes type 2, controlled GERD (gastroesophageal reflux disease) History of attempted suicide History of non-suicidal self-harm Hyperlipidemia Hypomagnesemia Major depression MDD (major depressive disorder), recurrent episode, severe Mood disorder Overdose PTSD (post-traumatic stress disorder) Suicide attempt Suicide attempt by acetaminophen overdose Social History Social History Household Members: None Household Members Other:: Patient lives in long term. 4 in total live in long term. Housing: Other Housing Other:: long term Do you presently have visiting nurse or other home services: No Unable to assess alcohol history related to: Unknown Alcohol intake: never Patient Tobacco Use Status: Current everyday Tobacco user Tobacco use type: Cigarette Cigarette Packs Per Day: 1 Cigarettes Per Day: 20 Years Smoked: 20 e-Cigarette/Vaping Use: Never Used Substance Use Type: Marijuana Advance Directives: No Advance Directives Information Provided: No service: No Current occupational status: disabled Sexual orientation: Don't Know Physical Exam Vital Signs: Vital Signs: Last Vital Signs Temp 97 F 05/13/22 20:27 Pulse 88 05/13/22 20:27 Resp 18 05/13/22 20:27 BP 142/94 H 05/13/22 20:27 Pulse Ox 95 05/13/22 20:27 O2 Del Method 05/13/22 20:27 BMI result Body Mass Index 38.7 Const: Other: Appearance: Alert. Oriented X3. No acute distress. Eyes: Pupils equal, round and reactive to light. ENT: Pharynx normal. Neck: Normal inspection. Neck supple. No lymph nodes noted. No crepitus CVS: Normal heart rate and rhythm. Pulses normal. Normal S1 and S2 Respiratory: No respiratory distress. Breath sounds normal. No Wheezing. No rales Abdomen: Soft and nontender. No rigidity. No distention. Skin: Skin warm and dry. Normal skin color. Normal skin turgor. Extremities: No lower extremity edema. No Lacerations. No Rash Neuro: Oriented X 3. No motor deficit. No sensory deficit. Moving all extremities. No slurred speech. CN 2 through 12 grossly intact Psych: calm, cooperative Course Course Course Narrative: Patient's labs are pending. Behavioral health network consult pending. Physician observation started at 21:10 [facility] - Psych Lab Data Labs: Lab Results 05/13/22 05/13/22 Range/Units 20:39 20:39 Urine Color STRAW Urine Appearance CLEAR Urine pH 5.5 (5.0-8.0) Ur Specific Driscoll <= 1.005 (1.005-1.025) Urine Protein NEG (NEG-TRACE) MG/DL Urine Glucose (UA) NEG (NEG) MG/DL Urine Ketones NEG (NEG) MG/DL Urine Blood NEG (NEG) Urine Nitrite NEG (NEG) Ur Leukocyte Esterase NEG (NEG) Urine Test NEGATIVE (NEGATIVE) Discharge Plan Discharge Clinical Impression: Suicidal ideation Patient Disposition: Still a Patient Prescriptions: No Action metformin 500 mg tablet 1 tab PO BID atorvastatin 10 mg tablet 1 tab PO DAILY verapamil 240 mg tablet extended release 240 mg PO BEDTIME montelukast 10 mg tablet 1 tab PO BEDTIME fluticasone propionate [Flovent HFA] 110 mcg/actuation HFA aerosol inhaler 2 puff inhalation BID albuterol sulfate [Ventolin HFA] 90 mcg/actuation HFA aerosol inhaler 2 puff inhalation Q4H PRN (Reason: Shortness Of Breath) trazodone 150 mg tablet 150 mg PO BEDTIME PRN (Reason: insomnia) benztropine 1 mg tablet 1 mg PO DAILY naproxen 500 mg tablet 1 tab PO BID docusate sodium [Colace] 100 mg capsule 100 mg PO BID Qty: 60 0RF fluoxetine 20 mg Capsule 40 mg PO DAILY 30 Days Qty: 60 0RF prazosin 1 mg Capsule 4 mg PO BEDTIME 30 Days Qty: 120 0RF Protocol: Hold for SBP< HOLD for SBP < : 90 mirtazapine 7.5 mg Tablet 7.5 mg PO BEDTIME MRX1 30 Days Qty: 60 0RF lisinopril 5 mg tablet 1 tab PO DAILY ondansetron 4 mg tablet,disintegrating 4 mg PO Q6-8H PRN (Reason: nausea and vomiting) Qty: 14 0RF fluphenazine HCl 2.5 mg tablet 1 tab PO BEDTIME fluphenazine HCl 5 mg tablet 1 tab PO BEDTIME
[2022-05-13 21:11] LABS: Amphetamine Screen Urine Not Detected (Not Detect); Barbiturates, Urine Not Detected (Not Detect); Benzodiazepines Screen Urine Not Detected (Not Detect); Cannabinoid Screen Urine Not Detected (Not Detect); Cocaine Screen Urine Not Detected (Not Detect); Fentanyl, urine Not Detected (Not Detect); Opiate Screen Urine Not Detected (Not Detect); Phencyclidine Screen Urine Not Detected (Not Detect)
[2022-05-13 21:15] LABS: Basophils Percent Auto 0.5 % (0-2); Eosinophils Absolute Auto 0.3 X10*3/uL (0.0-0.4); Eosinophils Percent Auto 3.6 % (0-4); Hematocrit 34.3 % (37.0-47.0); Hemoglobin 11.3 g/dl (12.0-16.0); Imm Gran Abs Auto 0.03 X10*3/uL (0.00-0.03); Imm Gran Pct Auto 0.4 % (0.0-0.4); MANUAL DIFF FLAG NO; Mean Corpuscular HGB Conc 32.9 g/dl (31.0-35.0); Mean Corpuscular Hemoglobin 28.8 pg (27.0-33.0); Mean Corpuscular Volume 87.3 fL (80.0-98.0); Mean Platelet Volume 9.7 fL (9.4-12.3); Monocytes Absolute Auto 0.6 X10*3/uL (0.1-1.2); Monocytes Percent Auto 7.4 % (2-11); Neutrophils Absolute Auto 4.6 x10*3/uL (2.0-8.3); Neutrophils Percent Auto 61.1 % (45-73); Platelet Count 244 X10*3/uL (160-400); Red Blood Count 3.93 X10*6/uL (4.20-5.50); Red Cell Distribution Width 12.8 % (11.0-16.0); White Blood Count 7.5 X10*3/uL (4.8-10.8)
[2022-05-13 21:16] LABS: COVID-19 Test Negative (Negative)
[2022-05-13 21:39] LABS: Alanine Aminotransferase 13 U/L (0-31); Albumin Level 4.6 g/dL (3.5-5.0); Alkaline Phosphatase 96 U/L (39-117); Anion Gap 16 (12-20); Aspartate Amino Transferase 16 U/L (5-31); Bilirubin Total < 0.2 mg/dL (0.0-1.0); Blood Urea Nitrogen 11 mg/dL (9-16); Calcium 9.2 mg/dL (8.4-10.2); Carbon Dioxide 23 mmol/L (22-29); Chloride 103 mmol/L (96-108); Creatinine Clr Calc Pharmacy 126.2; Estimated Glomerular Filt Rate > 60; Glucose Random 87 mg/dL (60-115); Potassium 3.7 mmol/L (3.3-5.1); Sodium 138 mmol/L (135-145); Total Protein 7.2 g/dL (6.5-8.0)
[2022-05-13 23:36] LABS: Acetaminophen LAB < 1 mcg/mL (<30); Salicylate < 5.0 mg/dL (15-30)
[2022-05-14 00:07] VITALS: BP 131/74; PULSE 93; RESP 18; TEMP 36.1; O2SAT 97
--- NOTE | 2022-05-14 06:31 | PC.NURSE ---
Patient slept through the night, no distress observed/reported, med rec completed/pending provider's approval, behavior non concerning, [facility] referral completed/confirmed/pending ETA, VSS, will continue to monitor.
--- NOTE | 2022-05-14 07:06 | PC.NURSE ---
patient appears to remain at rest at present, intermittent coughing, ambulating in milieu aD yanci. patient appears in no distress
== END 2022-05-14 10:18 | disposition home or self-care (01) ==
PROVIDERS: Emergency Provider Emergency Medicine
DX: R45.851 Suicidal ideations (principal); F60.3 Borderline personality disorder; F32.9 Major depressive disorder, single episode, unspecified; F43.10 Post-traumatic stress disorder, unspecified; Z20.822 Contact with and (suspected) exposure to COVID-19; E11.9 Type 2 diabetes mellitus without complications; E78.5 Hyperlipidemia, unspecified; F17.210 Nicotine dependence, cigarettes, uncomplicated; F12.90 Cannabis use, unspecified, uncomplicated; Z91.51 Personal history of suicidal behavior; Z79.02 Long term (current) use of antithrombotics/antiplatelets; Z79.84 Long term (current) use of oral hypoglycemic drugs; Z79.899 Other long term (current) drug therapy
CPT/HCPCS: 36415; 80053; 80143; 80179; 80307; 81003; 81025; 85025; 87635; 99284

== ENCOUNTER 2022-05-15 18:47 | Emergency (ER) | payer MEDICARE, MEDICAID, SELFPAY ==
--- NOTE | 2022-05-15 18:52 | ED.PSYCH ---
HPI - Psych General Chief Complaint: Psychiatric Symptoms Stated Complaint: crisis Source: patient and EMS Mode of arrival: EMS Limitations: no limitations History of Present Illness HPI Narrative: 46-year-old female presents via EMS for auditory hallucinations and suicidal ideation. Patient states that she is contemplating suicide by taking Tylenol. Patient is well-known to this facility and presents on a daily basis. Patient does not have any physical complaints at this time. MD complaint: suicidal ideation, feels depressed, anxiety and hallucinations (Auditory) Onset (ago): year(s) Duration: constant History of same: Yes Relieving factors: none Context: significant life stressor Associated psychiatric symptoms: depression, suicidal ideation, racing thoughts and auditory hallucinations Associated symptoms: denies other symptoms Treatments prior to arrival: none If self harm: admits thoughts of self harm, has plan and has acted on plan Related Data Home Medications Medication Instructions Recorded Confirmed atorvastatin 10 mg tablet 1 tab PO DAILY 05/29/21 05/13/22 fluticasone propionate 110 2 puff inhalation BID 05/29/21 05/13/22 mcg/actuation HFA aerosol inhaler (Flovent HFA) metformin 500 mg tablet 1 tab PO BID 05/29/21 05/13/22 montelukast 10 mg tablet 1 tab PO BEDTIME 05/29/21 05/13/22 verapamil 240 mg tablet,extended 240 mg PO BEDTIME 05/29/21 05/13/22 release albuterol sulfate 90 mcg/actuation 2 puff inhalation Q4H PRN 06/15/21 05/13/22 aerosol inhaler (Ventolin HFA) Shortness Of Breath trazodone 150 mg tablet 150 mg PO BEDTIME PRN insomnia 11/05/21 05/13/22 lisinopril 5 mg tablet 1 tab PO DAILY 11/14/21 05/13/22 benztropine 1 mg tablet 1 mg PO DAILY 12/26/21 05/13/22 naproxen 500 mg tablet 1 tab PO BID 01/23/22 05/13/22 fluphenazine HCl 2.5 mg tablet 1 tab PO BEDTIME 03/19/22 05/13/22 fluphenazine HCl 5 mg tablet 1 tab PO BEDTIME 03/19/22 05/13/22 Previous Rx's Medication Instructions Recorded fluoxetine 20 mg capsule 40 mg PO DAILY 30 days #60 caps 09/29/21 mirtazapine 7.5 mg tablet 7.5 mg PO BEDTIME MRX1 30 days #60 10/18/21 tabs prazosin 1 mg capsule 4 mg PO BEDTIME 30 days #120 caps 10/18/21 ondansetron 4 mg disintegrating 4 mg PO Q6-8H PRN nausea and 02/04/22 tablet vomiting #14 tabs docusate sodium 100 mg capsule 100 mg PO BID Constipation #60 caps 02/07/22 (Colace) Allergies Allergy/AdvReac Type Severity Reaction Status Date / Time Fish Containing Products Allergy Severe ANAPHYLAXIS Verified 05/06/22 20:47 codeine [Codeine] Allergy Unknown RASH Verified 05/06/22 20:47 Penicillins Allergy Unknown RASH Verified 05/06/22 20:47 prednisone [Prednisone] Allergy Unknown RASH Verified 05/06/22 20:47 Sulfa (Sulfonamide Allergy Unknown RASH Verified 05/06/22 20:47 Antibiotics) [Sulfa (Sulfonamides)] azithromycin [AZITHROMYCIN] AdvReac Severe RASH Verified 05/06/22 20:47 ziprasidone [From Geodon] AdvReac Intermediate dysuria, Verified 05/06/22 20:47 rash Review of Systems Review of Systems: Constitutional: No Fever, No Chills ENT/Mouth: No Ear Pain, No Nasal Congestion, No sore throat Eyes: No Eye Pain, No Swelling, No Redness Cardiovascular: No Chest Pain, No SOB Respiratory: No Cough, No Sputum, No Dyspnea Gastrointestinal: No Nausea, No Vomiting, No Diarrhea, No Hematochezia, No Melena Genitourinary: No Dysuria, No Urinary Frequency, No Hematuria Musculoskeletal: No Myalgias Skin: No Skin Lesions, No rash Neuro: No Weakness, No Numbness, No Paresthesias, No Dizziness, No Headache Psych: positive Anxiety, positive Depression, positive SI, positive auditory hallucinations Heme/Lymph: No Lymphadenopathy Endocrine: No Polyuria, No Polydipsia Yes all other systems are reviewed and are negative [facility] Past Medical History Attestation statement: The following information was validated with the patient. Source: old records reviewed Medical History Acetaminophen overdose Borderline personality disorder Bronchitis Depression Diabetes type 2, controlled GERD (gastroesophageal reflux disease) History of attempted suicide History of non-suicidal self-harm Hyperlipidemia Hypomagnesemia Major depression MDD (major depressive disorder), recurrent episode, severe Mood disorder Overdose PTSD (post-traumatic stress disorder) Suicide attempt Suicide attempt by acetaminophen overdose Social History Social History Household Members: None Household Members Other:: Patient lives in retirement. 4 in total live in retirement. Housing: Other Housing Other:: retirement Do you presently have visiting nurse or other home services: No Unable to assess alcohol history related to: Unknown Alcohol intake: never Patient Tobacco Use Status: Current everyday Tobacco user Tobacco use type: Cigarette Cigarette Packs Per Day: 1 Cigarettes Per Day: 20 Years Smoked: 20 e-Cigarette/Vaping Use: Never Used Substance Use Type: Marijuana Advance Directives: No Advance Directives Information Provided: No service: No Current occupational status: disabled Sexual orientation: Don't Know Physical Exam Vital Signs: Vital Signs: Last Vital Signs Temp 97.3 F 05/15/22 19:42 Pulse 87 05/15/22 19:42 Resp 16 05/15/22 19:42 BP 122/73 05/15/22 19:42 Pulse Ox 97 05/15/22 19:42 O2 Del Method 05/15/22 19:42 BMI result Body Mass Index 34.9 Appearance: Alert. Oriented X3. No acute distress. Eyes: Pupils equal, round and reactive to light. ENT: Pharynx normal. Neck: Normal inspection. Neck supple. CVS: Normal heart rate and rhythm. Pulses normal. Respiratory: No respiratory distress. Breath sounds normal. Abdomen: Soft and nontender. Skin: Skin warm and dry. Normal skin color. Normal skin turgor. No new injuries. Numerous scars from prior self-inflicted injuries. Extremities: No lower extremity edema. Moves all extremities against resistance. Gait well-balanced well coordinated. Neuro: No motor deficit. No sensory deficit. Cranial nerves 2-12 intact. Course Course Course Narrative: 46-year-old female presents via EMS for suicidal ideation, plan to overdose on Tylenol. Patient presents to this facility almost on a daily basis for similar circumstances. Will follow care plan, order crisis eval, and order labs for Tylenol levels. Patient does not have any physical complaints, and states that she has not done any cutting. 21:45 care team consult complete. Plan of care is to discharge home. Patient verbalized understanding of and agrees to plan of care discharge home. Verbalized understanding signs and symptoms indicating need for emergent intervention. MDM - Psych Differential Diagnosis Differential diagnosis: Likely suicidal ideation, depression, acute anxiety and mood disorder Medical Records Attestation: I reviewed the patient's medical records. Lab Data Attestation: I reviewed the patient's lab results. Labs: Lab Results 05/15/22 Range/Units 21:17 Salicylates < 5.0 L (15-30) mg/dL Acetaminophen < 1 (<30) mcg/mL Discharge Plan Discharge Clinical Impression: Suicidal ideation Patient Disposition: Home, Self-Care Instructions: Help Prevent Suicide (ED) Additional Instructions: Follow-up with outpatient psychiatry as scheduled. Thank you for choosing this emergency department for evaluation. Please follow-up with primary care physician as needed. Return to the emergency department for any new, concerning, or worsening symptoms. Prescriptions: No Action metformin 500 mg tablet 1 tab PO BID atorvastatin 10 mg tablet 1 tab PO DAILY verapamil 240 mg tablet extended release 240 mg PO BEDTIME montelukast 10 mg tablet 1 tab PO BEDTIME fluticasone propionate [Flovent HFA] 110 mcg/actuation HFA aerosol inhaler 2 puff inhalation BID albuterol sulfate [Ventolin HFA] 90 mcg/actuation HFA aerosol inhaler 2 puff inhalation Q4H PRN (Reason: Shortness Of Breath) trazodone 150 mg tablet 150 mg PO BEDTIME PRN (Reason: insomnia) benztropine 1 mg tablet 1 mg PO DAILY naproxen 500 mg tablet 1 tab PO BID docusate sodium [Colace] 100 mg capsule 100 mg PO BID Qty: 60 0RF fluoxetine 20 mg Capsule 40 mg PO DAILY 30 Days Qty: 60 0RF prazosin 1 mg Capsule 4 mg PO BEDTIME 30 Days Qty: 120 0RF Protocol: Hold for SBP< HOLD for SBP < : 90 mirtazapine 7.5 mg Tablet 7.5 mg PO BEDTIME MRX1 30 Days Qty: 60 0RF lisinopril 5 mg tablet 1 tab PO DAILY ondansetron 4 mg tablet,disintegrating 4 mg PO Q6-8H PRN (Reason: nausea and vomiting) Qty: 14 0RF fluphenazine HCl 2.5 mg tablet 1 tab PO BEDTIME fluphenazine HCl 5 mg tablet 1 tab PO BEDTIME Interventions: ED Discharge Assessment Last Done: 05/15/22 22:15 Discharge Date/Time: 05/15/22 22:19
[2022-05-15 19:00] VITALS: BP 118/72; PULSE 98; O2SAT 97
[2022-05-15 19:35] VITALS: BP 122/73; PULSE 87; RESP 16; TEMP 36.3; O2SAT 97
[2022-05-15 19:37] VITALS: BMI 34.9
[2022-05-15 19:42] VITALS: BP 122/73; PULSE 87; RESP 16; TEMP 36.3; O2SAT 97; BMI 34.9
[2022-05-15] MEDS: LORazepam 1 MG TABLET PO (19:46)
--- NOTE | 2022-05-15 19:46 | PC.NURSE ---
pt a&o, no sob or chest pain. pt reports hearing voiced and wanting to do self harm. pt changed over and made a 1:1.
[2022-05-15 21:41] LABS: Acetaminophen LAB < 1 mcg/mL (<30); Salicylate < 5.0 mg/dL (15-30)
--- NOTE | 2022-05-15 21:59 | MHC.CARE ---
CARE team met with pt to assess level of risk for harm to self or others. Pt is a 46 year old female who arrived via ambulance endorsing increased auditory hallucinations and suicidal ideation. Pt is well known to the CARE team and this loan underwriter. Pt reported that she was feeling overwhelmed at her detention prior to arrival. She shared that one of the staff members is on vacation this week and that the whole place falls apart when she isn't there. Pt also shared that another resident in the program has been challenging to interact with, as this resident is either friendly and social with the pt or is demeaning and trying to evoke a reaction from her. Pt reported that she hasn't been able to have a formal appointment with her therapist and that she had one scheduled for this past however she was here in the hospital and missed it. CARE team encouraged pt to reflect on why she is not able to self regulate at her detention but is able to in the busy hallways of the emergency department. She was not able to give an answer at that time but that she will think about it. This loan underwriter discussed what the rest of pt's night will look like and what her day looks like tomorrow. The pt reported that her plan is to go to sleep when she gets home and to start unpacking her room tomorrow, as she will not be moving to a different room in the program anymore. She reported that she may feel overwhelmed by the process of unpacking and we discussed her taking a break when she is starting to feel that way. We discussed what some of her warning signs are and that she should ask program staff for a PRN and then do something she enjoys, such as journaling or seeing one of her friends. Pt denied experiencing any AVH or thoughts of suicide at this time and does not require any further assessment. ED provider was updated re: the recommendation and is in agreement with plan for discharge.
--- NOTE | 2022-05-15 22:10 | PC.NURSE ---
pt was cleared by care team with a safe plan. Reviewed discharge plan with pt. pt verbalized understanding. reported to Allergy Specialist.
== END 2022-05-15 22:19 | disposition home or self-care (01) ==
PROVIDERS: Nurse Practitioner Family; Emergency Provider Internal Medicine
DX: F33.1 Major depressive disorder, recurrent, moderate (principal); R45.851 Suicidal ideations; Z79.899 Other long term (current) drug therapy; F17.210 Nicotine dependence, cigarettes, uncomplicated; Z71.6 Tobacco abuse counseling
CPT/HCPCS: 36415; 80143; 80179; 99284

== ENCOUNTER 2022-05-16 16:13 | Emergency (ER) | payer MEDICARE, MEDICAID, SELFPAY ==
--- NOTE | 2022-05-16 16:42 | ED.PSYCH ---
HPI - Psych General Chief Complaint: Psychiatric Symptoms Stated Complaint: SI Time Seen by Provider: 05/16/22 16:41 Source: patient Mode of arrival: EMS Limitations: no limitations Related Data Home Medications Medication Instructions Recorded Confirmed atorvastatin 10 mg tablet 1 tab PO DAILY 05/29/21 05/13/22 fluticasone propionate 110 2 puff inhalation BID 05/29/21 05/13/22 mcg/actuation HFA aerosol inhaler (Flovent HFA) metformin 500 mg tablet 1 tab PO BID 05/29/21 05/13/22 montelukast 10 mg tablet 1 tab PO BEDTIME 05/29/21 05/13/22 verapamil 240 mg tablet,extended 240 mg PO BEDTIME 05/29/21 05/13/22 release albuterol sulfate 90 mcg/actuation 2 puff inhalation Q4H PRN 06/15/21 05/13/22 aerosol inhaler (Ventolin HFA) Shortness Of Breath trazodone 150 mg tablet 150 mg PO BEDTIME PRN insomnia 11/05/21 05/13/22 lisinopril 5 mg tablet 1 tab PO DAILY 11/14/21 05/13/22 benztropine 1 mg tablet 1 mg PO DAILY 12/26/21 05/13/22 naproxen 500 mg tablet 1 tab PO BID 01/23/22 05/13/22 fluphenazine HCl 2.5 mg tablet 1 tab PO BEDTIME 03/19/22 05/13/22 fluphenazine HCl 5 mg tablet 1 tab PO BEDTIME 03/19/22 05/13/22 Previous Rx's Medication Instructions Recorded fluoxetine 20 mg capsule 40 mg PO DAILY 30 days #60 caps 09/29/21 mirtazapine 7.5 mg tablet 7.5 mg PO BEDTIME MRX1 30 days #60 10/18/21 tabs prazosin 1 mg capsule 4 mg PO BEDTIME 30 days #120 caps 10/18/21 ondansetron 4 mg disintegrating 4 mg PO Q6-8H PRN nausea and 02/04/22 tablet vomiting #14 tabs docusate sodium 100 mg capsule 100 mg PO BID Constipation #60 caps 02/07/22 (Colace) Allergies Allergy/AdvReac Type Severity Reaction Status Date / Time Fish Containing Products Allergy Severe ANAPHYLAXIS Verified 05/06/22 20:47 codeine [Codeine] Allergy Unknown RASH Verified 05/06/22 20:47 Penicillins Allergy Unknown RASH Verified 05/06/22 20:47 prednisone [Prednisone] Allergy Unknown RASH Verified 05/06/22 20:47 Sulfa (Sulfonamide Allergy Unknown RASH Verified 05/06/22 20:47 Antibiotics) [Sulfa (Sulfonamides)] azithromycin [AZITHROMYCIN] AdvReac Severe RASH Verified 05/06/22 20:47 ziprasidone [From Geodon] AdvReac Intermediate dysuria, Verified 05/06/22 20:47 rash PMFSH Past Medical History Medical History Acetaminophen overdose Borderline personality disorder Bronchitis Depression Diabetes type 2, controlled GERD (gastroesophageal reflux disease) History of attempted suicide History of non-suicidal self-harm Hyperlipidemia Hypomagnesemia Major depression MDD (major depressive disorder), recurrent episode, severe Mood disorder Overdose PTSD (post-traumatic stress disorder) Suicide attempt Suicide attempt by acetaminophen overdose Social History Social History Household Members: None Household Members Other:: Patient lives in snf. 4 in total live in snf. Housing: Other Housing Other:: snf Do you presently have visiting nurse or other home services: No Unable to assess alcohol history related to: Unknown Alcohol intake: never Patient Tobacco Use Status: Current everyday Tobacco user Tobacco use type: Cigarette Cigarette Packs Per Day: 1 Cigarettes Per Day: 20 Years Smoked: 20 e-Cigarette/Vaping Use: Never Used Substance Use Type: Marijuana Advance Directives: No Advance Directives Information Provided: Yes service: No Current occupational status: disabled Sexual orientation: Don't Know Physical Exam Vital Signs: Vital Signs: Last Vital Signs Temp 98 F 05/16/22 17:06 Pulse 90 05/16/22 17:06 Resp 18 05/16/22 17:06 BP 124/70 05/16/22 17:06 Pulse Ox 98 05/16/22 17:06 O2 Del Method 05/16/22 17:06 BMI result Body Mass Index 35.4 MDM - Psych MDM Narrative Medical decision making narrative: Patient seen by crisis okay to discharge patient Lab Data Attestation: I reviewed the patient's lab results. Labs: Lab Results 05/16/22 05/16/22 Range/Units 16:39 17:01 Urine Opiates Screen Not Detected (Not Detect) Urine Fentanyl Screen Not Detected (Not Detect) Ur Barbiturates Screen Not Detected (Not Detect) Ur Phencyclidine Scrn Not Detected (Not Detect) Ur Amphetamines Screen Not Detected (Not Detect) U Benzodiazepines Scrn Not Detected (Not Detect) Urine Cocaine Screen Not Detected (Not Detect) U Marijuana (THC) Screen Not Detected (Not Detect) COVID-19 (NICK) Negative (Negative) COVID-19 Clin Com See Note Discharge Plan Discharge Clinical Impression: Borderline personality disorder Patient Disposition: Home, Self-Care Instructions: Borderline Personality Disorder (DC) Additional Instructions: Take medication as prescribed and follow up with therapist Prescriptions: No Action metformin 500 mg tablet 1 tab PO BID atorvastatin 10 mg tablet 1 tab PO DAILY verapamil 240 mg tablet extended release 240 mg PO BEDTIME montelukast 10 mg tablet 1 tab PO BEDTIME fluticasone propionate [Flovent HFA] 110 mcg/actuation HFA aerosol inhaler 2 puff inhalation BID albuterol sulfate [Ventolin HFA] 90 mcg/actuation HFA aerosol inhaler 2 puff inhalation Q4H PRN (Reason: Shortness Of Breath) trazodone 150 mg tablet 150 mg PO BEDTIME PRN (Reason: insomnia) benztropine 1 mg tablet 1 mg PO DAILY naproxen 500 mg tablet 1 tab PO BID docusate sodium [Colace] 100 mg capsule 100 mg PO BID Qty: 60 0RF fluoxetine 20 mg Capsule 40 mg PO DAILY 30 Days Qty: 60 0RF prazosin 1 mg Capsule 4 mg PO BEDTIME 30 Days Qty: 120 0RF Protocol: Hold for SBP< HOLD for SBP < : 90 mirtazapine 7.5 mg Tablet 7.5 mg PO BEDTIME MRX1 30 Days Qty: 60 0RF lisinopril 5 mg tablet 1 tab PO DAILY ondansetron 4 mg tablet,disintegrating 4 mg PO Q6-8H PRN (Reason: nausea and vomiting) Qty: 14 0RF fluphenazine HCl 2.5 mg tablet 1 tab PO BEDTIME fluphenazine HCl 5 mg tablet 1 tab PO BEDTIME Interventions: ED Discharge Assessment Last Done: 05/16/22 18:28 Discharge Date/Time: 05/16/22 18:29
[2022-05-16 17:02] LABS: Amphetamine Screen Urine Not Detected (Not Detect); Barbiturates, Urine Not Detected (Not Detect); Benzodiazepines Screen Urine Not Detected (Not Detect); Cannabinoid Screen Urine Not Detected (Not Detect); Cocaine Screen Urine Not Detected (Not Detect); Fentanyl, urine Not Detected (Not Detect); Opiate Screen Urine Not Detected (Not Detect); Phencyclidine Screen Urine Not Detected (Not Detect)
[2022-05-16 17:06] VITALS: BP 118/82; BP 124/70; PULSE 90; RESP 18; TEMP 36.6; O2SAT 98; BMI 35.4
[2022-05-16 17:27] LABS: COVID-19 Test Negative (Negative)
[2022-05-16] MEDS: clonazePAM 0.5 MG TABLET PO (18:05)
--- NOTE | 2022-05-16 18:16 | MHC.CARE ---
Pt approaches CARE Team, reporting that she had a pain attack at her long-term, but is now feeling much better. She states I snapped out of it and I don't want to kill myself. She identifies that she would like to return to her long-term, siting that she does not feel that she needs to be hospitalized. Pt has shown significant growth in identifying that her moments of dysregulation pass and she does not need a hospitalization each time she presents to the ED. Pt is very well known to the CARE Team and appears to be at baseline. She denies SI and SIBI at this time. CARE Team speaks with Arvin, front end software engineer personnel from [facility], who agrees with the plan for pt to return to the long-term and agrees to send send staff to pick her up.
== END 2022-05-16 18:29 | disposition home or self-care (01) ==
PROVIDERS: Emergency Medicine Emergency Medical Services; Emergency Provider Internal Medicine
DX: F60.3 Borderline personality disorder (principal); Z20.822 Contact with and (suspected) exposure to COVID-19; F32.9 Major depressive disorder, single episode, unspecified; F43.10 Post-traumatic stress disorder, unspecified; E11.9 Type 2 diabetes mellitus without complications; E78.5 Hyperlipidemia, unspecified; F17.210 Nicotine dependence, cigarettes, uncomplicated; Z91.51 Personal history of suicidal behavior; Z79.84 Long term (current) use of oral hypoglycemic drugs; Z79.02 Long term (current) use of antithrombotics/antiplatelets; Z79.899 Other long term (current) drug therapy
CPT/HCPCS: 80307; 87635; 99282; 99284

== ENCOUNTER 2022-05-17 20:56 | Emergency (ER) | payer MEDICARE, MEDICAID, SELFPAY ==
--- NOTE | 2022-05-17 21:00 | ED.PSYCH ---
HPI - Psych General Chief Complaint: Psychiatric Symptoms Stated Complaint: si Source: patient and EMS Mode of arrival: EMS Limitations: no limitations History of Present Illness HPI Narrative: 46-year-old female presents via EMS for suicidal ideation with plan to overdose. She is on a Section 12 bed search in the community by Behavioral [facility]. MD complaint: suicidal ideation and feels depressed Onset (ago): year(s) Duration: constant History of same: Yes Relieving factors: none Associated psychiatric symptoms: depression, suicidal ideation and auditory hallucinations Associated symptoms: denies other symptoms Treatments prior to arrival: placed on mental health hold If self harm: admits thoughts of self harm, has plan and has acted on plan Related Data Home Medications Medication Instructions Recorded Confirmed atorvastatin 10 mg tablet 1 tab PO DAILY 05/29/21 05/18/22 fluticasone propionate 110 2 puff inhalation BID 05/29/21 05/18/22 mcg/actuation HFA aerosol inhaler (Flovent HFA) metformin 500 mg tablet 1 tab PO BID 05/29/21 05/18/22 montelukast 10 mg tablet 1 tab PO BEDTIME 05/29/21 05/18/22 verapamil 240 mg tablet,extended 240 mg PO BEDTIME 05/29/21 05/18/22 release albuterol sulfate 90 mcg/actuation 2 puff inhalation Q4H PRN 06/15/21 05/18/22 aerosol inhaler (Ventolin HFA) Shortness Of Breath trazodone 150 mg tablet 150 mg PO BEDTIME PRN insomnia 11/05/21 05/18/22 lisinopril 5 mg tablet 1 tab PO DAILY 11/14/21 05/18/22 benztropine 1 mg tablet 1 mg PO DAILY 12/26/21 05/18/22 naproxen 500 mg tablet 1 tab PO BID 01/23/22 05/18/22 fluphenazine HCl 2.5 mg tablet 1 tab PO BEDTIME 03/19/22 05/18/22 fluphenazine HCl 5 mg tablet 1 tab PO BEDTIME 03/19/22 05/18/22 Previous Rx's Medication Instructions Recorded fluoxetine 20 mg capsule 40 mg PO DAILY 30 days #60 caps 09/29/21 mirtazapine 7.5 mg tablet 7.5 mg PO BEDTIME MRX1 30 days #60 10/18/21 tabs prazosin 1 mg capsule 4 mg PO BEDTIME 30 days #120 caps 10/18/21 ondansetron 4 mg disintegrating 4 mg PO Q6-8H PRN nausea and 02/04/22 tablet vomiting #14 tabs docusate sodium 100 mg capsule 100 mg PO BID Constipation #60 caps 02/07/22 (Colace) Allergies Allergy/AdvReac Type Severity Reaction Status Date / Time Fish Containing Products Allergy Severe ANAPHYLAXIS Verified 05/06/22 20:47 codeine [Codeine] Allergy Unknown RASH Verified 05/06/22 20:47 Penicillins Allergy Unknown RASH Verified 05/06/22 20:47 prednisone [Prednisone] Allergy Unknown RASH Verified 05/06/22 20:47 Sulfa (Sulfonamide Allergy Unknown RASH Verified 05/06/22 20:47 Antibiotics) [Sulfa (Sulfonamides)] azithromycin [AZITHROMYCIN] AdvReac Severe RASH Verified 05/06/22 20:47 ziprasidone [From Geodon] AdvReac Intermediate dysuria, Verified 05/06/22 20:47 rash Review of Systems Review of Systems: Constitutional: No Fever, No Chills ENT/Mouth: No Ear Pain, No Hoarseness, No sore throat Eyes: No Eye Pain, No Swelling, No Redness, No Foreign Body Cardiovascular: No Chest Pain, No SOB Respiratory: No Cough, No Dyspnea Gastrointestinal: No Nausea, No Vomiting, No Diarrhea, No abdominal Pain Genitourinary: No Dysuria, No Hematuria Musculoskeletal: No joint pain, No Myalgias, No Joint Swelling Skin: No Skin lacerations, No rash Neuro: No Weakness, No Numbness, No Paresthesias, No Loss of Consciousness, No Dizziness, No Headache Psych: Positive Anxiety, positive suicidal ideation, positive auditory hallucinations, positive Depression Heme/Lymph: no easy bruising, no Lymphadenopathy Endocrine: No Polyuria, No Polydipsia Yes all other systems are reviewed and are negative [facility] Past Medical History Attestation statement: The following information was validated with the patient. Source: old records reviewed Medical History Acetaminophen overdose Borderline personality disorder Bronchitis Depression Diabetes type 2, controlled GERD (gastroesophageal reflux disease) History of attempted suicide History of non-suicidal self-harm Hyperlipidemia Hypomagnesemia Major depression MDD (major depressive disorder), recurrent episode, severe Mood disorder Overdose PTSD (post-traumatic stress disorder) Suicide attempt Suicide attempt by acetaminophen overdose Social History Social History Household Members: None Household Members Other:: Patient lives in [facility]. 4 in total live in [facility]. Housing: Other Housing Other:: [facility] Do you presently have visiting nurse or other home services: No Unable to assess alcohol history related to: Unknown Alcohol intake: never Patient Tobacco Use Status: Current everyday Tobacco user Tobacco use type: Cigarette Cigarette Packs Per Day: 1 Cigarettes Per Day: 20 Years Smoked: 20 e-Cigarette/Vaping Use: Never Used Substance Use Type: Marijuana Advance Directives: No Advance Directives Information Provided: Yes service: No Current occupational status: disabled Sexual orientation: Don't Know Physical Exam Vital Signs: Vital Signs: BMI result Body Mass Index 34.9 Appearance: Alert. Oriented X3. No acute distress. Eyes: Pupils equal, round and reactive to light. Sclera nonicteric. ENT: Pharynx normal. Neck: Normal inspection. Neck supple. CVS: Normal heart rate and rhythm. Pulses normal. Respiratory: No respiratory distress. Breath sounds normal. Abdomen: Soft and nontender. Skin: Numerous healed scars to all extremities from self-inflicted wounds. Skin warm and dry. Normal skin color. Normal skin turgor. Extremities: No lower extremity edema. Gait well-balanced well coordinated. Neuro: No motor deficit. No sensory deficit. Cranial nerves 2-12 intact. Course Course Course Narrative: 46-year-old female presents via EMS on section 12 bed search from the community for suicidal ideation with plan. Patient is well-known to this facility, presents daily for similar circumstances. Will order crisis eval, and appropriate labs per care plan. Patient's plan is to overdose on Tylenol. Patient has had several overdoses in the past few months on Tylenol requiring ICU admission. 00:28 physician observation started at this time. Inpatient bed search. MDM - Psych Differential Diagnosis Differential diagnosis: Likely suicidal ideation and depression Medical Records Attestation: I reviewed the patient's medical records. Lab Data Labs: Lab Results 05/17/22 05/17/22 05/17/22 Range/Units 22:45 22:45 22:45 Urine Color Urine Appearance Urine pH (5.0-8.0) Ur Specific [place] (1.005-1.025) Urine Protein (NEG-TRACE) MG/DL Urine Glucose (UA) (NEG) MG/DL Urine Ketones (NEG) MG/DL Urine Blood (NEG) Urine Nitrite (NEG) Ur Leukocyte Esterase (NEG) Urine RBC (0) /HPF Urine WBC (0-4) /HPF Ur Squamous Epith Cells /LPF Ur Renal Epithelial Cell /LPF Urine Bacteria /LPF Urine Mucus /LPF Urine Test NEGATIVE (NEGATIVE) Urine Opiates Screen Not Detected (Not Detect) Urine Fentanyl Screen Not Detected (Not Detect) Ur Barbiturates Screen Not Detected (Not Detect) Ur Phencyclidine Scrn Not Detected (Not Detect) Ur Amphetamines Screen Not Detected (Not Detect) U Benzodiazepines Scrn Not Detected (Not Detect) Urine Cocaine Screen Not Detected (Not Detect) U Marijuana (THC) Screen Not Detected (Not Detect) COVID-19 (NICK) Negative (Negative) COVID-Notice Kiosk See Note 05/17/22 Range/Units 22:45 Urine Color YELLOW Urine Appearance CLEAR Urine pH 6.0 (5.0-8.0) Ur Specific [place] <= 1.005 (1.005-1.025) Urine Protein NEG (NEG-TRACE) MG/DL Urine Glucose (UA) NEG (NEG) MG/DL Urine Ketones NEG (NEG) MG/DL Urine Blood NEG (NEG) Urine Nitrite NEG (NEG) Ur Leukocyte Esterase 1+ H (NEG) Urine RBC 0-2 (0) /HPF Urine WBC 0-2 (0-4) /HPF Ur Squamous Epith Cells 3+ /LPF Ur Renal Epithelial Cell TRACE /LPF Urine Bacteria TRACE /LPF Urine Mucus TRACE /LPF Urine Test (NEGATIVE) Urine Opiates Screen (Not Detect) Urine Fentanyl Screen (Not Detect) Ur Barbiturates Screen (Not Detect) Ur Phencyclidine Scrn (Not Detect) Ur Amphetamines Screen (Not Detect) U Benzodiazepines Scrn (Not Detect) Urine Cocaine Screen (Not Detect) U Marijuana (THC) Screen (Not Detect) COVID-19 (NICK) (Negative) COVID-Notice Kiosk Discharge Plan Discharge Clinical Impression: Suicidal ideation, Major depression, Depression Patient Disposition: Home, Self-Care Instructions: Depression (ED), Suicide Prevention (ED) Additional Instructions: Follow-up with outpatient psychiatry scheduled. Return to the emergency department for any new, concerning, worsening symptoms. Prescriptions: No Action metformin 500 mg tablet 1 tab PO BID atorvastatin 10 mg tablet 1 tab PO DAILY verapamil 240 mg tablet extended release 240 mg PO BEDTIME montelukast 10 mg tablet 1 tab PO BEDTIME fluticasone propionate [Flovent HFA] 110 mcg/actuation HFA aerosol inhaler 2 puff inhalation BID albuterol sulfate [Ventolin HFA] 90 mcg/actuation HFA aerosol inhaler 2 puff inhalation Q4H PRN (Reason: Shortness Of Breath) trazodone 150 mg tablet 150 mg PO BEDTIME PRN (Reason: insomnia) benztropine 1 mg tablet 1 mg PO DAILY naproxen 500 mg tablet 1 tab PO BID docusate sodium [Colace] 100 mg capsule 100 mg PO BID Qty: 60 0RF fluoxetine 20 mg Capsule 40 mg PO DAILY 30 Days Qty: 60 0RF prazosin 1 mg Capsule 4 mg PO BEDTIME 30 Days Qty: 120 0RF Protocol: Hold for SBP< HOLD for SBP < : 90 mirtazapine 7.5 mg Tablet 7.5 mg PO BEDTIME MRX1 30 Days Qty: 60 0RF lisinopril 5 mg tablet 1 tab PO DAILY ondansetron 4 mg tablet,disintegrating 4 mg PO Q6-8H PRN (Reason: nausea and vomiting) Qty: 14 0RF fluphenazine HCl 2.5 mg tablet 1 tab PO BEDTIME fluphenazine HCl 5 mg tablet 1 tab PO BEDTIME
[2022-05-17 21:15] VITALS: BP 160/80; PULSE 116; O2SAT 96; BMI 34.9
[2022-05-17 23:25] LABS: Appearance Urine CLEAR; Color Urine YELLOW; Glucose Urine UA NEG (NEG); Leukocyte Esterase Urine 1+ (NEG); Nitrite Urine NEG (NEG); Specific Gravity - Urine <= 1.005 (1.005-1.025); Urine Blood NEG (NEG); Urine Ketones NEG (NEG); Urine Protein NEG (NEG-TRACE)
[2022-05-17 23:28] LABS: UPreg QC Valid YES; Urine Pregnancy NEGATIVE (NEGATIVE)
[2022-05-17 23:37] LABS: Amphetamine Screen Urine Not Detected (Not Detect); Barbiturates, Urine Not Detected (Not Detect); Benzodiazepines Screen Urine Not Detected (Not Detect); Cannabinoid Screen Urine Not Detected (Not Detect); Cocaine Screen Urine Not Detected (Not Detect); Fentanyl, urine Not Detected (Not Detect); Opiate Screen Urine Not Detected (Not Detect); Phencyclidine Screen Urine Not Detected (Not Detect)
[2022-05-17 23:43] LABS: COVID-19 Test Negative (Negative)
[2022-05-17 23:46] LABS: Bacteria Urine TRACE /LPF; Mucus Urine TRACE /LPF; RBC Urine 0-2 /HPF (0); Renal Epithelial Cells Urine TRACE /LPF; Squamous Epithelial Cell Urine 3+ /LPF; WBC Urine 0-2 /HPF (0-4)
[2022-05-18 01:14] VITALS: BP 148/95; PULSE 90; RESP 17; TEMP 36.4; O2SAT 97
--- NOTE | 2022-05-18 06:58 | PC.NURSE ---
Patient slept through the night, no distress observed/reported, disposition per N from community is section 12 inpatient bed search, VSS, behavior non concerning, med rec completed/MAR updated, will continue to monitor.
--- NOTE | 2022-05-18 07:25 | PC.NURSE ---
patient appears to remain asleep at present respirations are even and unlabored patient appears in no distress
[2022-05-18] MEDS: metFORMIN HCl 500 MG TABLET PO (08:31)
[2022-05-18] MEDS: Atorvastatin Calcium 10 MG TABLET PO (08:31)
[2022-05-18] MEDS: Docusate Sodium 100 MG CAPSULE PO (08:31)
[2022-05-18] MEDS: Benztropine Mesylate 1 MG TABLET PO (08:31)
[2022-05-18] MEDS: FLUoxetine HCl 20 MG CAPSULE 40 MG PO (08:32)
[2022-05-18] MEDS: lisinopriL 5 MG TABLET PO (08:32)
[2022-05-18] MEDS: NaPROXEN 500 MG TABLET PO (08:32)
[2022-05-18] MEDS: Nicotine Polacrilex Lozenge 2 MG LOZENGE BUCCAL (09:23)
[2022-05-18 10:05] VITALS: BP 110/49; PULSE 79; RESP 16; TEMP 36.6; O2SAT 98
--- NOTE | 2022-05-18 10:52 | MHC.CARE ---
Patient is a 46 year-old woman, well known to [facility], who was evaluated by [facility] last night in her home and sent to the ED for medical clearance and to await inpatient psychiatric placement. This morning she requested to speak with a clinician, stated that she no longer feels suicidal and wanted to go home. Spent time processing the event of last night, she reported calling the nonemergency line to speak with someone but disclosed that she cut her arm subsequently they sent an ambulance then was evaluated by co-response onsight. Patient said she has been having panic attacks,multiple per day. Practiced breathing techniques and provided psychoeducation regarding anxiety. Patient is future oriented and noted several things that she is looking forward to, most importantly she is switching bedrooms with another resident. This will put patient in a room that is closer to staff, does not have a lock on the door and does not have direct access to outside. She said she will feel safer under these circumstance. Plans to go to her day program tomorrow and will see her therapist while she is there. Call to [facility] and spoke to staff person, Nayla, who was aware of patient status. Explained that patient no longer wants to be hospitalized and would like to discharge home. Staff said that was fine, someone will be at the house and expect her soon. ED provider, Dr. Hernandez consulted and in agreement with plan to discharge. CARE Team will call patient later today for a check in.
== END 2022-05-18 10:22 | disposition home or self-care (01) ==
PROVIDERS: Emergency Provider Internal Medicine
DX: R45.851 Suicidal ideations (principal); F33.9 Major depressive disorder, recurrent, unspecified; R44.0 Auditory hallucinations; F60.3 Borderline personality disorder; F43.10 Post-traumatic stress disorder, unspecified; Z91.51 Personal history of suicidal behavior; E11.9 Type 2 diabetes mellitus without complications; E78.5 Hyperlipidemia, unspecified; F17.210 Nicotine dependence, cigarettes, uncomplicated; F12.90 Cannabis use, unspecified, uncomplicated; Z20.822 Contact with and (suspected) exposure to COVID-19; Z79.02 Long term (current) use of antithrombotics/antiplatelets; Z79.84 Long term (current) use of oral hypoglycemic drugs; Z79.899 Other long term (current) drug therapy
CPT/HCPCS: 80307; 81001; 81025; 87635; 99284

== ENCOUNTER 2022-05-19 10:56 | Emergency (ER) | payer MEDICARE, MEDICAID, SELFPAY ==
[2022-05-19 11:08] VITALS: BP 122/80; BP 149/72; PULSE 88; PULSE 94; TEMP 36.3; O2SAT 97; BMI 34.9
--- NOTE | 2022-05-19 11:30 | ED_ITS ---
HPI - Psych General Chief Complaint: Psychiatric Symptoms Stated Complaint: crisis Time Seen by Provider: 05/19/22 11:17 Source: patient and EMS Mode of arrival: EMS Limitations: no limitations Related Data Home Medications Medication Instructions Recorded Confirmed atorvastatin 10 mg tablet 1 tab PO DAILY 05/29/21 05/18/22 fluticasone propionate 110 2 puff inhalation BID 05/29/21 05/18/22 mcg/actuation HFA aerosol inhaler (Flovent HFA) metformin 500 mg tablet 1 tab PO BID 05/29/21 05/18/22 montelukast 10 mg tablet 1 tab PO BEDTIME 05/29/21 05/18/22 verapamil 240 mg tablet,extended 240 mg PO BEDTIME 05/29/21 05/18/22 release albuterol sulfate 90 mcg/actuation 2 puff inhalation Q4H PRN 06/15/21 05/18/22 aerosol inhaler (Ventolin HFA) Shortness Of Breath trazodone 150 mg tablet 150 mg PO BEDTIME PRN insomnia 11/05/21 05/18/22 lisinopril 5 mg tablet 1 tab PO DAILY 11/14/21 05/18/22 benztropine 1 mg tablet 1 mg PO DAILY 12/26/21 05/18/22 naproxen 500 mg tablet 1 tab PO BID 01/23/22 05/18/22 fluphenazine HCl 2.5 mg tablet 1 tab PO BEDTIME 03/19/22 05/18/22 fluphenazine HCl 5 mg tablet 1 tab PO BEDTIME 03/19/22 05/18/22 Previous Rx's Medication Instructions Recorded fluoxetine 20 mg capsule 40 mg PO DAILY 30 days #60 caps 09/29/21 mirtazapine 7.5 mg tablet 7.5 mg PO BEDTIME MRX1 30 days #60 10/18/21 tabs prazosin 1 mg capsule 4 mg PO BEDTIME 30 days #120 caps 10/18/21 ondansetron 4 mg disintegrating 4 mg PO Q6-8H PRN nausea and 02/04/22 tablet vomiting #14 tabs docusate sodium 100 mg capsule 100 mg PO BID Constipation #60 caps 02/07/22 (Colace) Allergies Allergy/AdvReac Type Severity Reaction Status Date / Time Fish Containing Products Allergy Severe ANAPHYLAXIS Verified 05/06/22 20:47 codeine [Codeine] Allergy Unknown RASH Verified 05/06/22 20:47 Penicillins Allergy Unknown RASH Verified 05/06/22 20:47 prednisone [Prednisone] Allergy Unknown RASH Verified 05/06/22 20:47 Sulfa (Sulfonamide Allergy Unknown RASH Verified 05/06/22 20:47 Antibiotics) [Sulfa (Sulfonamides)] azithromycin [AZITHROMYCIN] AdvReac Severe RASH Verified 05/06/22 20:47 ziprasidone [From Geodon] AdvReac Intermediate dysuria, Verified 05/06/22 20:47 rash PMFSH Past Medical History Medical History Acetaminophen overdose Borderline personality disorder Bronchitis Depression Diabetes type 2, controlled GERD (gastroesophageal reflux disease) History of attempted suicide History of non-suicidal self-harm Hyperlipidemia Hypomagnesemia Major depression MDD (major depressive disorder), recurrent episode, severe Mood disorder Overdose PTSD (post-traumatic stress disorder) Suicide attempt Suicide attempt by acetaminophen overdose Social History Social History Household Members: None Household Members Other:: Patient lives in assisted. 4 in total live in assisted. Housing: Other Housing Other:: assisted Do you presently have visiting nurse or other home services: No Unable to assess alcohol history related to: Unknown Alcohol intake: never Patient Tobacco Use Status: Current everyday Tobacco user Tobacco use type: Cigarette Cigarette Packs Per Day: 1 Cigarettes Per Day: 20 Years Smoked: 20 e-Cigarette/Vaping Use: Never Used Substance Use Type: Marijuana Advance Directives: Yes Advance Directives Information Provided: Yes Advance Directives on File: No service: No Current occupational status: disabled Sexual orientation: Don't Know Physical Exam Vital Signs: Vital Signs: Last Vital Signs Temp 97.4 F 05/19/22 11:08 Pulse 88 05/19/22 11:08 BP 149/72 H 05/19/22 11:08 Pulse Ox 97 05/19/22 11:08 O2 Del Method 05/19/22 11:08 BMI result Body Mass Index 34.9 Course Course Course Narrative: Patient seen by care team Jeffrey. Plan for discharge back to assisted MDM - Psych Lab Data Labs: Lab Results 05/19/22 05/19/22 Range/Units 11:19 12:44 Urine Opiates Screen Not Detected (Not Detect) Urine Fentanyl Screen Not Detected (Not Detect) Ur Barbiturates Screen Not Detected (Not Detect) Ur Phencyclidine Scrn Not Detected (Not Detect) Ur Amphetamines Screen Not Detected (Not Detect) U Benzodiazepines Scrn Not Detected (Not Detect) Urine Cocaine Screen Not Detected (Not Detect) U Marijuana (THC) Screen Not Detected (Not Detect) COVID-19 (NICK) Negative (Negative) COVID-19 Clin Com See Note Discharge Plan Discharge Clinical Impression: Borderline personality disorder Patient Disposition: Home, Self-Care Instructions: Borderline Personality Disorder (DC) Prescriptions: No Action metformin 500 mg tablet 1 tab PO BID atorvastatin 10 mg tablet 1 tab PO DAILY verapamil 240 mg tablet extended release 240 mg PO BEDTIME montelukast 10 mg tablet 1 tab PO BEDTIME fluticasone propionate [Flovent HFA] 110 mcg/actuation HFA aerosol inhaler 2 puff inhalation BID albuterol sulfate [Ventolin HFA] 90 mcg/actuation HFA aerosol inhaler 2 puff inhalation Q4H PRN (Reason: Shortness Of Breath) trazodone 150 mg tablet 150 mg PO BEDTIME PRN (Reason: insomnia) benztropine 1 mg tablet 1 mg PO DAILY naproxen 500 mg tablet 1 tab PO BID docusate sodium [Colace] 100 mg capsule 100 mg PO BID Qty: 60 0RF fluoxetine 20 mg Capsule 40 mg PO DAILY 30 Days Qty: 60 0RF prazosin 1 mg Capsule 4 mg PO BEDTIME 30 Days Qty: 120 0RF Protocol: Hold for SBP< HOLD for SBP < : 90 mirtazapine 7.5 mg Tablet 7.5 mg PO BEDTIME MRX1 30 Days Qty: 60 0RF lisinopril 5 mg tablet 1 tab PO DAILY ondansetron 4 mg tablet,disintegrating 4 mg PO Q6-8H PRN (Reason: nausea and vomiting) Qty: 14 0RF fluphenazine HCl 2.5 mg tablet 1 tab PO BEDTIME fluphenazine HCl 5 mg tablet 1 tab PO BEDTIME Interventions: ED Discharge Assessment Last Done: 05/19/22 16:01 Discharge Date/Time: 05/19/22 16:04
--- NOTE | 2022-05-19 11:30 | PC.NURSE ---
PT BROUGHT IN VIA EMS VOLUNTARILY FOR SI W/PLAN TO OVERDOSE AND TO CUT HERSELF, SHE HAS NOT ACTED ON PLAN, SHE ALSO REPORTS AUDITORY HALLUCINATIONS. PT CONTINUES TO ADMIT TO SI W/PLAN TO OVERDOSE AND CUT HERSELF. PT UNDER CLOSE VISUAL OBSERVATION AT THIS TIME.
[2022-05-19 11:43] LABS: COVID-19 Test Negative (Negative)
[2022-05-19] MEDS: LORazepam 1 MG TABLET 2 MG PO (12:25)
[2022-05-19] MEDS: Nicotine 21 MG PATCH.TD24 TRANSDERMA (12:25)
[2022-05-19 13:10] LABS: Amphetamine Screen Urine Not Detected (Not Detect); Barbiturates, Urine Not Detected (Not Detect); Benzodiazepines Screen Urine Not Detected (Not Detect); Cannabinoid Screen Urine Not Detected (Not Detect); Cocaine Screen Urine Not Detected (Not Detect); Fentanyl, urine Not Detected (Not Detect); Opiate Screen Urine Not Detected (Not Detect); Phencyclidine Screen Urine Not Detected (Not Detect)
--- NOTE | 2022-05-19 14:15 | MHC.CARE ---
Today, ?pt was transported to this facility from the community via ambulance with a complaint of command auditory hallucinations, visual hallucinations of her cousin standing next to her, depression, and suicidal ideation. Pt attributes some recent changes in the shelter as potential triggers.? She stated that a staff member left the shelter, one is on vacation, and there is ?fill in? staff.? She also stated that she is moving her room from the downstairs to the upstairs.? She stated that the move isn?t perceived as a bad thing or an unwanted change, she expresses that she is looking forward to it and recently thoroughly cleaned her room in preparation for the move, which she enjoyed.? Pt has been medically cleared and is being assessed by the CARE Team to determine risk. Pt has an extensive hx of inpt hospitalizations, and is known to engage in unsafe behavior when decompensated. Past documented hx of major depressive d/o, PTSD, and Borderline personality d/o. Pt has a hx of self-harm and suicide attempts. Pt is alert and oriented x4 and is assessed for risk by the CARE Team in her room of the behavioral health pod of the ED.? Pt is neat in appearance and appears older than her stated age.? She denies AH, SI, , HI and self-harm urges.? She stated that she recently received an Ativan and that had made a profound effect on her AVH and thoughts of self-harm and suicide.? She is now denying AVH, self-harm urges and SI.? Pt stated, when asked, that she would ask for a PRN if she experienced the voices again and they became unmanageable.? She stated that this morning, she woke up with the voices and then soon after the VH began.? She reports that this is uncharacteristic as she most often experiences the AVH at night and not during daylight hours.? She states her sleep and appetite and sleep have been ?good?.? She reports her mood as ?good?.? Pt demonstrates a wide range of affect.? ?Insight, judgement, memory, and concentration are fair and appear to be at her baseline.? Pt appears to be at her baseline at this time. The plan is for pt to be discharged to the shelter.? CARE Team will secure transportation.? Pt will receive a follow up call to check on her progress early this evening. This disposition was discussed with and agreed upon by [facility] Specialist of Behavioral Health Marta Simeon [facility], ED Provider Rigoberto brice and pt?s nurse WALKER Hill.
== END 2022-05-19 16:04 | disposition home or self-care (01) ==
PROVIDERS: Nurse Practitioner Family; Emergency Provider Emergency Medicine; PCP Nurse Practitioner Family
DX: F33.1 Major depressive disorder, recurrent, moderate (principal); F17.210 Nicotine dependence, cigarettes, uncomplicated; Z20.822 Contact with and (suspected) exposure to COVID-19; Z71.6 Tobacco abuse counseling; Z79.899 Other long term (current) drug therapy
CPT/HCPCS: 80307; 87635; 99282; 99284

== ENCOUNTER 2022-05-21 14:28 | Emergency (ER) | payer MEDICARE, MEDICAID, SELFPAY ==
[2022-05-21 14:32] VITALS: BP 141/76; BP 151/76; PULSE 80; PULSE 87; RESP 18; TEMP 36.6; O2SAT 96; O2SAT 97; BMI 31.9
--- NOTE | 2022-05-21 14:35 | ED.PSYCH ---
HPI - Psych General Chief Complaint: Psychiatric Symptoms Stated Complaint: crisis Time Seen by Provider: 05/21/22 14:35 Source: patient and EMS Mode of arrival: EMS Limitations: no limitations History of Present Illness HPI Narrative: 46-year-old female with past medical history of borderline personality disorder, depression, anxiety, bipolar 2 with melancholic features, PTSD here with reports of suicidal thoughts with self-injury to wrists, abdomen and lower leg. patient tells me yesterday was an anniversary of a friends . patient denies any intentional drug overdose no physical complaints Related Data Home Medications Medication Instructions Recorded Confirmed atorvastatin 10 mg tablet 1 tab PO DAILY 05/29/21 05/18/22 fluticasone propionate 110 2 puff inhalation BID 05/29/21 05/18/22 mcg/actuation HFA aerosol inhaler (Flovent HFA) metformin 500 mg tablet 1 tab PO BID 05/29/21 05/18/22 montelukast 10 mg tablet 1 tab PO BEDTIME 05/29/21 05/18/22 verapamil 240 mg tablet,extended 240 mg PO BEDTIME 05/29/21 05/18/22 release albuterol sulfate 90 mcg/actuation 2 puff inhalation Q4H PRN 06/15/21 05/18/22 aerosol inhaler (Ventolin HFA) Shortness Of Breath trazodone 150 mg tablet 150 mg PO BEDTIME PRN insomnia 11/05/21 05/18/22 lisinopril 5 mg tablet 1 tab PO DAILY 11/14/21 05/18/22 benztropine 1 mg tablet 1 mg PO DAILY 12/26/21 05/18/22 naproxen 500 mg tablet 1 tab PO BID 01/23/22 05/18/22 fluphenazine HCl 2.5 mg tablet 1 tab PO BEDTIME 03/19/22 05/18/22 fluphenazine HCl 5 mg tablet 1 tab PO BEDTIME 03/19/22 05/18/22 Previous Rx's Medication Instructions Recorded fluoxetine 20 mg capsule 40 mg PO DAILY 30 days #60 caps 09/29/21 mirtazapine 7.5 mg tablet 7.5 mg PO BEDTIME MRX1 30 days #60 10/18/21 tabs prazosin 1 mg capsule 4 mg PO BEDTIME 30 days #120 caps 10/18/21 ondansetron 4 mg disintegrating 4 mg PO Q6-8H PRN nausea and 02/04/22 tablet vomiting #14 tabs docusate sodium 100 mg capsule 100 mg PO BID Constipation #60 caps 02/07/22 (Colace) Allergies Allergy/AdvReac Type Severity Reaction Status Date / Time Fish Containing Products Allergy Severe ANAPHYLAXIS Verified 05/06/22 20:47 codeine [Codeine] Allergy Unknown RASH Verified 05/06/22 20:47 Penicillins Allergy Unknown RASH Verified 05/06/22 20:47 prednisone [Prednisone] Allergy Unknown RASH Verified 05/06/22 20:47 Sulfa (Sulfonamide Allergy Unknown RASH Verified 05/06/22 20:47 Antibiotics) [Sulfa (Sulfonamides)] azithromycin [AZITHROMYCIN] AdvReac Severe RASH Verified 05/06/22 20:47 ziprasidone [From Geodon] AdvReac Intermediate dysuria, Verified 05/06/22 20:47 rash Review of Systems Review of Systems: Yes all other systems are reviewed and are negative Constitutional: Constitutional: Reports no additional constitutional complaints, Denies body ache(s), Denies chills, Denies fever(s), Denies headache(s) and Denies weakness Eyes: Eyes: Reports no additional eye complaints and Denies change in vision ENT: Reports system reviewed and no additional complaints, except as documented, Denies dizziness, Denies headache(s), Denies nasal congestion, Denies nasal discharge and Denies neck pain Cardiovascular: Cardiovascular: Reports no additional cardiovascular complaints, Denies chest pain, Denies leg edema and Denies dyspnea Respiratory: Respiratory: Reports no additional respiratory complaints, Denies cough and Denies dyspnea Gastrointestinal: Gastrointestinal: Reports no additional gastrointestinal complaints, Denies abdominal pain, Denies diarrhea, Denies nausea and Denies vomiting Genitourinary: Genitourinary: Reports no additional female genitourinary complaints and Denies urinary incontinence Musculoskeletal: Musculoskeletal: Reports no additional musculoskeletal complaints, Denies back pain, Denies arthralgias, Denies joint swelling, Denies neck pain, Denies numbness and Denies tingling Integumentary/Breasts: Skin/Breast: Reports system reviewed and no additional complaints, except as docu and Denies rash Neurologic: Reports system reviewed and no additional complaints, except as documented, Denies Abnormal speech present, Denies dizziness, Denies headache(s), Denies numbness, Denies tingling and Denies weakness Psychiatric: Psychiatric: Reports anxiety, Reports depression and Reports suicidal ideation [facility] Past Medical History Attestation statement: The following information was validated with the patient. Source: old records reviewed and nursing notes reviewed Medical History Acetaminophen overdose Borderline personality disorder Bronchitis Depression Diabetes type 2, controlled GERD (gastroesophageal reflux disease) History of attempted suicide History of non-suicidal self-harm Hyperlipidemia Hypomagnesemia Major depression MDD (major depressive disorder), recurrent episode, severe Mood disorder Overdose PTSD (post-traumatic stress disorder) Suicide attempt Suicide attempt by acetaminophen overdose Social History Social History Household Members: None Household Members Other:: Patient lives in custodial. 4 in total live in custodial. Housing: Other Housing Other:: custodial Do you presently have visiting nurse or other home services: No Unable to assess alcohol history related to: Unknown Alcohol intake: never Patient Tobacco Use Status: Current everyday Tobacco user Tobacco use type: Cigarette Cigarette Packs Per Day: 1 Cigarettes Per Day: 20 Years Smoked: 20 e-Cigarette/Vaping Use: Never Used Substance Use Type: Marijuana Advance Directives: No Advance Directives Information Provided: No service: No Current occupational status: disabled Sexual orientation: Don't Know Physical Exam Vital Signs: Vital Signs: Last Vital Signs Temp 98 F 05/21/22 14:32 Pulse 80 05/21/22 14:32 Resp 18 05/21/22 14:32 BP 151/76 H 05/21/22 14:32 Pulse Ox 96 05/21/22 14:32 O2 Del Method 05/21/22 14:32 BMI result Body Mass Index 31.9 Const: General: cooperative, healthy appearing, comfortable and no acute distress Orientation/consciousness: patient oriented x3 Limitations: no limitations HEENT: Head: Yes normal to inspection Ears: hearing grossly normal bilaterally General nose exam: Normal external nose present Face and sinus: Yes normal facial exam Mouth: Normal oral and palatal mucosa present Throat: Yes posterior oropharynx normal Eyes: General: appearance normal, both eyes and all related structures Pupils: Equal, round and reactive pupils present Neck: Neck: Yes normal visual inspection Chest: Chest palpation & inspection: normal inspection of the chest Resp: Effort & Inspection: normal respiratory effort Auscultation: clear to auscultation bilaterally Cardio: Rate: regular rate Rhythm: regular rhythm Peripheral pulses: Peripheral pulses 2+ throughout GI: Inspection: Yes normal to inspection Palpation (GI): Soft to palpation and nontender Auscultation: normal bowel sounds Back/Spine/Pelvis: Thoracic/Lumbar Spine: thoracic and lumbar spine normal to inspection Skin: Other: Over the dorsal forearms, lower abdomen and lower legs there are superficial abrasions noted with no active bleeding General skin exam: no rashes or lesions noted Neuro: General: patient oriented x3, no focal motor deficits and normal sensation to monofilament Cranial nerves: Yes CN's II-XII intact bilaterally and Yes Equal, round and reactive pupils present Cognition (Neuro): normal cognition Speech: No Abnormal speech present Gait exam (Neuro): Normal gait present Motor exam (neuro): 5/5 motor strength present throughout Extrem: General: Yes normal to inspection Course Course Course Narrative: after period of observation the patient wanted to be discharged back to the custodial. She feels better. Care team saw the patient and plan is for discharge back to the custodial. MDM - Psych MDM Narrative Medical decision making narrative: 46-year-old female here with suicidal thoughts and self injury no concern for acute ingestion or trauma will need care team consultation Medical Records Attestation: I reviewed the patient's medical records. Lab Data Attestation: I reviewed the patient's lab results. Discharge Plan Discharge Clinical Impression: Borderline personality disorder Patient Disposition: Xfer Other Transfer Details: custodial Instructions: Borderline Personality Disorder (DC) Prescriptions: No Action metformin 500 mg tablet 1 tab PO BID atorvastatin 10 mg tablet 1 tab PO DAILY verapamil 240 mg tablet extended release 240 mg PO BEDTIME montelukast 10 mg tablet 1 tab PO BEDTIME fluticasone propionate [Flovent HFA] 110 mcg/actuation HFA aerosol inhaler 2 puff inhalation BID albuterol sulfate [Ventolin HFA] 90 mcg/actuation HFA aerosol inhaler 2 puff inhalation Q4H PRN (Reason: Shortness Of Breath) trazodone 150 mg tablet 150 mg PO BEDTIME PRN (Reason: insomnia) benztropine 1 mg tablet 1 mg PO DAILY naproxen 500 mg tablet 1 tab PO BID docusate sodium [Colace] 100 mg capsule 100 mg PO BID Qty: 60 0RF fluoxetine 20 mg Capsule 40 mg PO DAILY 30 Days Qty: 60 0RF prazosin 1 mg Capsule 4 mg PO BEDTIME 30 Days Qty: 120 0RF Protocol: Hold for SBP< HOLD for SBP < : 90 mirtazapine 7.5 mg Tablet 7.5 mg PO BEDTIME MRX1 30 Days Qty: 60 0RF lisinopril 5 mg tablet 1 tab PO DAILY ondansetron 4 mg tablet,disintegrating 4 mg PO Q6-8H PRN (Reason: nausea and vomiting) Qty: 14 0RF fluphenazine HCl 2.5 mg tablet 1 tab PO BEDTIME fluphenazine HCl 5 mg tablet 1 tab PO BEDTIME
--- NOTE | 2022-05-21 15:50 | MHC.CARE ---
CARE team met with pt for brief risk assessment. Pt reported that she came here as a result of a panic attack. She reported she felt panic sxs and despite efforts by intermediate she called EMS seeking the ED. Pt admitted she feels she did not need it (referring to arrival to ED). Pt denied feeling suicidal and admitted to cutting her arms superficially earlier today. Pt stated that she did the same bx and presentation yesterday and went to [facility] walk in at [facility], and was sent home after speaking to crisis. Pt denied current urges to self harm. She was eating a pudding and crackers when meeting with CARE. Pt did not present with acute sxs warranting holding her against her will. She asked to return to the intermediate. CARE spoke zara Martini (Arvin) and he reported it was fine to send her back and he added how he attempted to prevent her coming to the ED with activities, and added support but she decided to seek the ED. CARE reviewed with ED provider Stephanie BARAHONA and plan to dc pt back to .
== END 2022-05-21 16:08 | disposition home or self-care (01) ==
PROVIDERS: Emergency Provider Emergency Medicine; PCP Nurse Practitioner Family
DX: F60.3 Borderline personality disorder (principal); S50.812A Abrasion of left forearm, initial encounter; S50.811A Abrasion of right forearm, initial encounter; S30.811A Abrasion of abdominal wall, initial encounter; S80.812A Abrasion, left lower leg, initial encounter; S80.811A Abrasion, right lower leg, initial encounter; X78.9XXA Intentional self-harm by unspecified sharp object, initial encounter; F41.9 Anxiety disorder, unspecified; F31.9 Bipolar disorder, unspecified; F43.10 Post-traumatic stress disorder, unspecified; R45.851 Suicidal ideations; Y93.9 Activity, unspecified; Y92.049 Unspecified place in boarding-house as the place of occurrence of the external cause; Y99.9 Unspecified external cause status; Z79.02 Long term (current) use of antithrombotics/antiplatelets; Z79.84 Long term (current) use of oral hypoglycemic drugs; Z79.899 Other long term (current) drug therapy
CPT/HCPCS: 99282; 99283

== ENCOUNTER 2022-05-23 19:23 | Emergency (ER) | payer MEDICARE, MEDICAID, SELFPAY ==
[2022-05-23 19:39] VITALS: BP 130/88; BP 139/78; PULSE 90; PULSE 93; RESP 18; TEMP 36.8; O2SAT 100; O2SAT 99; BMI 36.1
--- NOTE | 2022-05-23 19:48 | ED.PSYCH ---
HPI - Psych General Chief Complaint: Psychiatric Symptoms Stated Complaint: si and lac on forearm Time Seen by Provider: 05/23/22 19:27 Source: patient Mode of arrival: ambulatory Limitations: no limitations History of Present Illness HPI Narrative: 46-year-old female with past medical history of borderline personality disorder, depression, anxiety, bipolar 2 with melancholic features, PTSD, DM, GERD? presents today with auditory and visual hallucinations, suicide ideation with plan to overdose and left-sided superficial self-inflicted wounds. Patient tells me that she has been having lot of panic attacks lately and today she was feeling suicidal. Unable to tell me what triggered today situation. She tells me that she is hearing male voices that are telling her to kill herself. Denies homicidal ideation. Denies tactile hallucinations. Denies drugs, alcohol and tobacco. Denies medical complaints at this time MD complaint: suicidal ideation Onset (ago): day(s) (1) Duration: constant History of same: Yes Relieving factors: none Exacerbating factors: none Associated psychiatric symptoms: none Associated symptoms: denies other symptoms Treatments prior to arrival: none If self harm: admits thoughts of self harm and has plan Related Data Home Medications Medication Instructions Recorded Confirmed atorvastatin 10 mg tablet 1 tab PO DAILY 05/29/21 05/18/22 fluticasone propionate 110 2 puff inhalation BID 05/29/21 05/18/22 mcg/actuation HFA aerosol inhaler (Flovent HFA) metformin 500 mg tablet 1 tab PO BID 05/29/21 05/18/22 montelukast 10 mg tablet 1 tab PO BEDTIME 05/29/21 05/18/22 verapamil 240 mg tablet,extended 240 mg PO BEDTIME 05/29/21 05/18/22 release albuterol sulfate 90 mcg/actuation 2 puff inhalation Q4H PRN 06/15/21 05/18/22 aerosol inhaler (Ventolin HFA) Shortness Of Breath trazodone 150 mg tablet 150 mg PO BEDTIME PRN insomnia 11/05/21 05/18/22 lisinopril 5 mg tablet 1 tab PO DAILY 11/14/21 05/18/22 benztropine 1 mg tablet 1 mg PO DAILY 12/26/21 05/18/22 naproxen 500 mg tablet 1 tab PO BID 01/23/22 05/18/22 fluphenazine HCl 2.5 mg tablet 1 tab PO BEDTIME 03/19/22 05/18/22 fluphenazine HCl 5 mg tablet 1 tab PO BEDTIME 03/19/22 05/18/22 Previous Rx's Medication Instructions Recorded fluoxetine 20 mg capsule 40 mg PO DAILY 30 days #60 caps 09/29/21 mirtazapine 7.5 mg tablet 7.5 mg PO BEDTIME MRX1 30 days #60 10/18/21 tabs prazosin 1 mg capsule 4 mg PO BEDTIME 30 days #120 caps 10/18/21 ondansetron 4 mg disintegrating 4 mg PO Q6-8H PRN nausea and 02/04/22 tablet vomiting #14 tabs docusate sodium 100 mg capsule 100 mg PO BID Constipation #60 caps 02/07/22 (Colace) Allergies Allergy/AdvReac Type Severity Reaction Status Date / Time Fish Containing Products Allergy Severe ANAPHYLAXIS Verified 05/06/22 20:47 codeine [Codeine] Allergy Unknown RASH Verified 05/06/22 20:47 Penicillins Allergy Unknown RASH Verified 05/06/22 20:47 prednisone [Prednisone] Allergy Unknown RASH Verified 05/06/22 20:47 Sulfa (Sulfonamide Allergy Unknown RASH Verified 05/06/22 20:47 Antibiotics) [Sulfa (Sulfonamides)] azithromycin [AZITHROMYCIN] AdvReac Severe RASH Verified 05/06/22 20:47 ziprasidone [From Geodon] AdvReac Intermediate dysuria, Verified 05/06/22 20:47 rash Review of Systems Review of Systems: Constitutional : No Weight loss, No Fever, No Chills, No Fatigue, No Malaise ENT/Mouth : No sore throat, No Rhinorrhea Eyes: No Eye Pain, No Swelling, No Redness Cardiovascular : No Chest Pain, No SOB, No Dyspnea on Exertion, No Orthopnea, No Edema, No Palpitations Respiratory : No Cough, No Sputum, No Wheezing Gastrointestinal : No Nausea, No Vomiting, No Diarrhea, No Constipation, No abdominal Pain, No Hematochezia, No Melena Genitourinary : No Dysuria, No Urinary Frequency, No Hematuria, Musculoskeletal : No joint pain, No Myalgias, No Joint Swelling Skin : No Skin Lesions, No rash Neuro : No Weakness, No Numbness, No Dizziness, No Headache Psych : + Anxiety/Panic, + Depression, + AH,VH, + SI, No HI All other systems reviewed and are negative Yes all other systems are reviewed and are negative [facility] Past Medical History Attestation statement: The following information was validated with the patient. Source: old records reviewed and nursing notes reviewed Medical History Acetaminophen overdose Borderline personality disorder Bronchitis Depression Diabetes type 2, controlled GERD (gastroesophageal reflux disease) History of attempted suicide History of non-suicidal self-harm Hyperlipidemia Hypomagnesemia Major depression MDD (major depressive disorder), recurrent episode, severe Mood disorder Overdose PTSD (post-traumatic stress disorder) Suicide attempt Suicide attempt by acetaminophen overdose Social History Social History Household Members: None Household Members Other:: Patient lives in [facility]. 4 in total live in [facility]. Housing: Other Housing Other:: [facility] Do you presently have visiting nurse or other home services: No Unable to assess alcohol history related to: Unknown Alcohol intake: never Patient Tobacco Use Status: Current everyday Tobacco user Tobacco use type: Cigarette Cigarette Packs Per Day: 1 Cigarettes Per Day: 20 Years Smoked: 20 e-Cigarette/Vaping Use: Never Used Substance Use Type: Marijuana Advance Directives: No Advance Directives Information Provided: No service: No Current occupational status: disabled Sexual orientation: Don't Know Physical Exam Vital Signs: Vital Signs: Last Vital Signs Temp 98.3 F 05/23/22 19:39 Pulse 93 05/23/22 19:39 Resp 18 05/23/22 19:39 BP 139/78 05/23/22 19:39 Pulse Ox 99 05/23/22 19:39 O2 Del Method 05/23/22 19:39 BMI result Body Mass Index 36.1 vss Appearance: Alert.? Oriented X3.? No acute distress.? Head: Normocephalic, atraumatic, no step-offs or deformities Eyes: Pupils equal, round and reactive to light.? ENT: Pharynx normal.? Neck: Normal inspection.? Neck supple.? CVS: Normal heart rate and rhythm.? Pulses normal.? Respiratory: No respiratory distress.? Breath sounds normal.? Abdomen: Soft and nontender.? Skin: Skin warm and dry.? Normal skin color.? Normal skin turgor.?+ self-inflicted wounds to the left forearm Extremities: No lower extremity edema.? No calf ttp. 5/5 strength to bilateral upper and lower extremities Neuro: Oriented X 3.? No motor deficit.? No sensory deficit. CN 2-12 intact Course Reevaluation(s) Reevaluation #1: CBC appears to be around patient's baseline. Chemistry with no acute electrolyte abnormalities requiring intervention. Patient's magnesium is slightly low 1.5 however no signs of hypomagnesemia. And EKG with no electrolyte abnormalities. No signs of UTI. Urine toxicology negative. Salicylates, acetaminophen and ethanol negative. COVID negative. At this time patient will be placed in physician observation. At time observation was started patient common cooperative no acute distress. Will continue to monitor Time: 21:54 MDM - Psych MDM Narrative Medical decision making narrative: [id number] 46 year old female presents to the emergency department with anxiety, depression, VH, AH and suicidal ideation X1 day PE w/ superficial self inflicted wounds to left forearm To note, patient is up-to-date on tetanus shot. Plan at this time is for medical clearance and evaluation by the behavioral health team. Medical Records Attestation: I reviewed the patient's medical records. Lab Data Attestation: I reviewed the patient's lab results. Result diagrams: 05/23/22 19:53 05/23/22 19:53 Labs: Lab Results 05/23/22 05/23/22 05/23/22 Range/Units 19:47 19:47 19:47 WBC (4.8-10.8) X10*3/uL RBC (4.20-5.50) X10*6/uL Hgb (12.0-16.0) g/dl Hct (37.0-47.0) % MCV (80.0-98.0) fL MCH (27.0-33.0) pg MCHC (31.0-35.0) g/dl RDW (11.0-16.0) % Plt Count (160-400) X10*3/uL MPV (9.4-12.3) fL Immature Gran % (Auto) (0.0-0.4) % Neut % (Auto) (45-73) % Lymph % (Auto) (20-40) % Scott % (Auto) (2-11) % Eos % (Auto) (0-4) % Baso % (Auto) (0-2) % Lymph # (Auto) (1.2-4.9) X10*3/uL Scott # (Auto) (0.1-1.2) X10*3/uL Eos # (Auto) (0.0-0.4) X10*3/uL Baso # (Auto) (0.0-0.2) X10*3/uL Abs Immat Gran (auto) (0.00-0.03) X10*3/uL Absolute Neuts (auto) (2.0-8.3) x10*3/uL Absolute Nucleated RBC (0.0-0.012) X10*3/uL Nucleated RBC % (auto) (0.0-0.2) /100WBC Sodium (135-145) mmol/L Potassium (3.3-5.1) mmol/L Chloride (96-108) mmol/L Carbon Dioxide (22-29) mmol/L Anion Gap (12-20) BUN (9-16) mg/dL Creatinine (0.5-1.4) mg/dL Estim Creat Clear Calc Estimated GFR Random Glucose (60-115) mg/dL Calcium (8.4-10.2) mg/dL Magnesium (1.6-2.6) mg/dL Total Bilirubin (0.0-1.0) mg/dL AST (5-31) U/L ALT (0-31) U/L Alkaline Phosphatase (39-117) U/L Total Protein (6.5-8.0) g/dL Albumin (3.5-5.0) g/dL Urine Color YELLOW Urine Appearance CLEAR Urine pH 6.0 (5.0-8.0) Ur Specific [place] <= 1.005 (1.005-1.025) Urine Protein NEG (NEG-TRACE) MG/DL Urine Glucose (UA) NEG (NEG) MG/DL Urine Ketones NEG (NEG) MG/DL Urine Blood NEG (NEG) Urine Nitrite NEG (NEG) Ur Leukocyte Esterase NEG (NEG) Salicylates (15-30) mg/dL Urine Opiates Screen Not Detected (Not Detect) Urine Fentanyl Screen Not Detected (Not Detect) Acetaminophen (<30) mcg/mL Ur Barbiturates Screen Not Detected (Not Detect) Ur Phencyclidine Scrn Not Detected (Not Detect) Ur Amphetamines Screen Not Detected (Not Detect) U Benzodiazepines Scrn Not Detected (Not Detect) Urine Cocaine Screen Not Detected (Not Detect) U Marijuana (THC) Screen Not Detected (Not Detect) Ethyl Alcohol mg/dL COVID-19 (NICK) Negative (Negative) COVID-19 Clin Com See Note 05/23/22 05/23/22 Range/Units 19:53 19:53 WBC 7.8 (4.8-10.8) X10*3/uL RBC 3.56 L (4.20-5.50) X10*6/uL Hgb 10.5 L (12.0-16.0) g/dl Hct 31.5 L (37.0-47.0) % MCV 88.5 (80.0-98.0) fL MCH 29.5 (27.0-33.0) pg MCHC 33.3 (31.0-35.0) g/dl RDW 13.1 (11.0-16.0) % Plt Count 235 (160-400) X10*3/uL MPV 9.6 (9.4-12.3) fL Immature Gran % (Auto) 0.4 (0.0-0.4) % Neut % (Auto) 61.1 (45-73) % Lymph % (Auto) 26.1 (20-40) % Scott % (Auto) 8.7 (2-11) % Eos % (Auto) 3.2 (0-4) % Baso % (Auto) 0.5 (0-2) % Lymph # (Auto) 2.0 (1.2-4.9) X10*3/uL Scott # (Auto) 0.7 (0.1-1.2) X10*3/uL Eos # (Auto) 0.3 (0.0-0.4) X10*3/uL Baso # (Auto) 0.0 (0.0-0.2) X10*3/uL Abs Immat Gran (auto) 0.03 (0.00-0.03) X10*3/uL Absolute Neuts (auto) 4.8 (2.0-8.3) x10*3/uL Absolute Nucleated RBC 0.000 (0.0-0.012) X10*3/uL Nucleated RBC % (auto) 0.0 (0.0-0.2) /100WBC Sodium 140 (135-145) mmol/L Potassium 3.7 (3.3-5.1) mmol/L Chloride 107 (96-108) mmol/L Carbon Dioxide 21 L (22-29) mmol/L Anion Gap 16 (12-20) BUN 8 L (9-16) mg/dL Creatinine 0.84 (0.5-1.4) mg/dL Estim Creat Clear Calc 95.8 Estimated GFR > 60 Random Glucose 137 H (60-115) mg/dL Calcium 8.5 D (8.4-10.2) mg/dL Magnesium 1.5 L (1.6-2.6) mg/dL Total Bilirubin 0.2 (0.0-1.0) mg/dL AST 11 (5-31) U/L ALT 11 (0-31) U/L Alkaline Phosphatase 92 (39-117) U/L Total Protein 6.5 (6.5-8.0) g/dL Albumin 4.2 (3.5-5.0) g/dL Urine Color Urine Appearance Urine pH (5.0-8.0) Ur Specific [place] (1.005-1.025) Urine Protein (NEG-TRACE) MG/DL Urine Glucose (UA) (NEG) MG/DL Urine Ketones (NEG) MG/DL Urine Blood (NEG) Urine Nitrite (NEG) Ur Leukocyte Esterase (NEG) Salicylates < 5.0 L (15-30) mg/dL Urine Opiates Screen (Not Detect) Urine Fentanyl Screen (Not Detect) Acetaminophen < 1 (<30) mcg/mL Ur Barbiturates Screen (Not Detect) Ur Phencyclidine Scrn (Not Detect) Ur Amphetamines Screen (Not Detect) U Benzodiazepines Scrn (Not Detect) Urine Cocaine Screen (Not Detect) U Marijuana (THC) Screen (Not Detect) Ethyl Alcohol < 10 mg/dL COVID-19 (NICK) (Negative) COVID-19 Clin Com Critical Care Time Critical Care Time Critical Care Time: No Discharge Plan Discharge Clinical Impression: Major depression, Suicidal ideation Patient Disposition: Still a Patient Prescriptions: No Action metformin 500 mg tablet 1 tab PO BID atorvastatin 10 mg tablet 1 tab PO DAILY verapamil 240 mg tablet extended release 240 mg PO BEDTIME montelukast 10 mg tablet 1 tab PO BEDTIME fluticasone propionate [Flovent HFA] 110 mcg/actuation HFA aerosol inhaler 2 puff inhalation BID albuterol sulfate [Ventolin HFA] 90 mcg/actuation HFA aerosol inhaler 2 puff inhalation Q4H PRN (Reason: Shortness Of Breath) trazodone 150 mg tablet 150 mg PO BEDTIME PRN (Reason: insomnia) benztropine 1 mg tablet 1 mg PO DAILY naproxen 500 mg tablet 1 tab PO BID docusate sodium [Colace] 100 mg capsule 100 mg PO BID Qty: 60 0RF fluoxetine 20 mg Capsule 40 mg PO DAILY 30 Days Qty: 60 0RF prazosin 1 mg Capsule 4 mg PO BEDTIME 30 Days Qty: 120 0RF Protocol: Hold for SBP< HOLD for SBP < : 90 mirtazapine 7.5 mg Tablet 7.5 mg PO BEDTIME MRX1 30 Days Qty: 60 0RF lisinopril 5 mg tablet 1 tab PO DAILY ondansetron 4 mg tablet,disintegrating 4 mg PO Q6-8H PRN (Reason: nausea and vomiting) Qty: 14 0RF fluphenazine HCl 2.5 mg tablet 1 tab PO BEDTIME fluphenazine HCl 5 mg tablet 1 tab PO BEDTIME
[2022-05-23 19:57] LABS: MANUAL DIFF FLAG NO
[2022-05-23 19:59] LABS: Appearance Urine CLEAR; Color Urine YELLOW; Glucose Urine UA NEG (NEG); Leukocyte Esterase Urine NEG (NEG); Nitrite Urine NEG (NEG); Specific Gravity - Urine <= 1.005 (1.005-1.025); Urine Blood NEG (NEG); Urine Ketones NEG (NEG); Urine Protein NEG (NEG-TRACE)
[2022-05-23 19:59] LABS: Basophils Percent Auto 0.5 % (0-2); Eosinophils Absolute Auto 0.3 X10*3/uL (0.0-0.4); Eosinophils Percent Auto 3.2 % (0-4); Hematocrit 31.5 % (37.0-47.0); Hemoglobin 10.5 g/dl (12.0-16.0); Imm Gran Abs Auto 0.03 X10*3/uL (0.00-0.03); Imm Gran Pct Auto 0.4 % (0.0-0.4); Lymphocytes Percent Auto 26.1 % (20-40); Mean Corpuscular HGB Conc 33.3 g/dl (31.0-35.0); Mean Corpuscular Hemoglobin 29.5 pg (27.0-33.0); Mean Corpuscular Volume 88.5 fL (80.0-98.0); Mean Platelet Volume 9.6 fL (9.4-12.3); Monocytes Absolute Auto 0.7 X10*3/uL (0.1-1.2); Monocytes Percent Auto 8.7 % (2-11); Neutrophils Absolute Auto 4.8 x10*3/uL (2.0-8.3); Neutrophils Percent Auto 61.1 % (45-73); Platelet Count 235 X10*3/uL (160-400); Red Blood Count 3.56 X10*6/uL (4.20-5.50); Red Cell Distribution Width 13.1 % (11.0-16.0); White Blood Count 7.8 X10*3/uL (4.8-10.8)
[2022-05-23 20:15] LABS: COVID-19 Test Negative (Negative); IDNOW Serial# 16C4AD1C
[2022-05-23 20:22] LABS: Acetaminophen LAB < 1 mcg/mL (<30); Alanine Aminotransferase 11 U/L (0-31); Albumin Level 4.2 g/dL (3.5-5.0); Alkaline Phosphatase 92 U/L (39-117); Anion Gap 16 (12-20); Aspartate Amino Transferase 11 U/L (5-31); Bilirubin Total 0.2 mg/dL (0.0-1.0); Blood Urea Nitrogen 8 mg/dL (9-16); Calcium 8.5 mg/dL (8.4-10.2); Carbon Dioxide 21 mmol/L (22-29); Chloride 107 mmol/L (96-108); Creatinine Clr Calc Pharmacy 95.8; Estimated Glomerular Filt Rate > 60; Ethanol < 10 mg/dL; Glucose Random 137 mg/dL (60-115); Magnesium 1.5 mg/dL (1.6-2.6); Potassium 3.7 mmol/L (3.3-5.1); Salicylate < 5.0 mg/dL (15-30); Sodium 140 mmol/L (135-145); Total Protein 6.5 g/dL (6.5-8.0)
[2022-05-23 20:22] LABS: Amphetamine Screen Urine Not Detected (Not Detect); Barbiturates, Urine Not Detected (Not Detect); Benzodiazepines Screen Urine Not Detected (Not Detect); Cannabinoid Screen Urine Not Detected (Not Detect); Cocaine Screen Urine Not Detected (Not Detect); Fentanyl, urine Not Detected (Not Detect); Opiate Screen Urine Not Detected (Not Detect); Phencyclidine Screen Urine Not Detected (Not Detect)
--- NOTE | 2022-05-23 20:42 | ECG_ITS ---
Test Reason : med clearance Blood Pressure : / mmHG Vent. Rate : 084 BPM Atrial Rate : 084 BPM P-R Int : 186 ms QRS Dur : 088 ms QT Int : 388 ms P-R-T Axes : 060 060 053 degrees QTc Int : 458 ms Normal sinus rhythm Normal ECG When compared with ECG of 01-MAY-2022 21:54, No significant change was found Referred By: Shala Loyd Electronically Signed By:MAURI COLE
[2022-05-23 23:06] VITALS: BP 127/71; PULSE 96; RESP 16; TEMP 36.3; O2SAT 97
--- NOTE | 2022-05-24 05:11 | PC.NURSE ---
Patient slept through the night, no distress observed/reported, behavior tearful at the time of arrival but calmed down, behavior non concerning, med rec completed/pending provider's approval, awaiting care team assessment in the morning, VSS, will continue to monitor.
--- NOTE | 2022-05-24 07:27 | PC.NURSE ---
patient appears to remain asleep at present respirations are even and unlabored patient appears in no distress
--- NOTE | 2022-05-24 09:10 | MHC.CARE ---
Yesterday, pt was transported to this facility from the community via ambulance with a complaint of command auditory hallucinations, depression, and suicidal ideation. Pt attributes some recent changes in the halfway as potential triggers.? Pt has been medically cleared and is being assessed by the CARE Team to determine risk. Pt has an extensive hx of inpt hospitalizations, and is known to engage in unsafe behavior when decompensated. Past documented hx of major depressive d/o, PTSD, and Borderline personality d/o. Pt has a hx of self-harm and suicide attempts. Pt is alert and oriented x4 and is assessed for risk by the CARE Team in her room of the behavioral health pod of the ED.? Pt is neat in appearance and appears older than her stated age.? She denies SI, , HI and self-harm urges.? She stated she is still experiencing voices but they are not as intense and are ?manageable?.? She states her sleep and appetite and sleep have been ?good?.? She reports her mood as ?good?.? Pt demonstrates a wide range of affect.? ?Insight, judgement, memory, and concentration are fair and appear to be at her baseline.? Pt appears to be at her baseline at this time. The plan is for pt to be discharged to the halfway.? CARE Team will secure transportation.? Pt will receive a follow up call to check on her progress later this afternoon. This disposition was discussed with and agreed upon by Supervisor [employer] [facility] Marta MILLER, ED Provider Dr. Martinez and pt?s nurse WALKER Still.
[2022-05-24 09:34] VITALS: BP 151/91; PULSE 70; RESP 16; TEMP 37.1; O2SAT 98
--- NOTE | 2022-05-24 14:52 | MHC.CARE ---
Called pt at the [facility] to conduct a follow up call after pt's recent discharge from the ED. No answer at the [facility]. Message left requesting a return call.
== END 2022-05-24 09:51 | disposition home or self-care (01) ==
PROVIDERS: Physician Assistant; Emergency Provider Emergency Medicine; PCP Nurse Practitioner Family
DX: F32.9 Major depressive disorder, single episode, unspecified (principal); R45.851 Suicidal ideations; R44.0 Auditory hallucinations; R44.1 Visual hallucinations; F60.3 Borderline personality disorder; F43.10 Post-traumatic stress disorder, unspecified; F41.9 Anxiety disorder, unspecified; F17.210 Nicotine dependence, cigarettes, uncomplicated; F12.90 Cannabis use, unspecified, uncomplicated; E11.9 Type 2 diabetes mellitus without complications; Z20.822 Contact with and (suspected) exposure to COVID-19; Z79.02 Long term (current) use of antithrombotics/antiplatelets; Z79.84 Long term (current) use of oral hypoglycemic drugs; Z79.899 Other long term (current) drug therapy; Z91.51 Personal history of suicidal behavior
CPT/HCPCS: 80053; 80143; 80179; 80307; 81003; 82077; 83735; 85025; 87635; 93005; 99284

== ENCOUNTER 2022-05-27 20:28 | Emergency (ER) | payer MEDICARE, MEDICAID, SELFPAY ==
[2022-05-27 20:35] VITALS: BP 157/95; PULSE 95; RESP 16; TEMP 36.6; O2SAT 96; BMI 40.3
--- NOTE | 2022-05-27 21:33 | ED.PSYCH ---
HPI - Psych General Chief Complaint: Psychiatric Symptoms Stated Complaint: SI Time Seen by Provider: 05/27/22 21:33 Source: patient and EMS Mode of arrival: EMS Limitations: no limitations History of Present Illness HPI Narrative: Patient comes to the emergency room complaining, and auditory hallucinations. Patient states that earlier today patient broke a glass bottle of frapuccino, grab the piece of glass and made several lacerations in her abdomen. When I asked the patient if she intended to commit suicide or if this was to relieve pressure, patient answers ?I do know?. Patient denies any other injuries, denies taking any medications other than her prescribed meds Related Data Home Medications Medication Instructions Recorded Confirmed atorvastatin 10 mg tablet 1 tab PO DAILY 05/29/21 05/27/22 fluticasone propionate 110 2 puff inhalation BID 05/29/21 05/27/22 mcg/actuation HFA aerosol inhaler (Flovent HFA) metformin 500 mg tablet 1 tab PO BID 05/29/21 05/27/22 montelukast 10 mg tablet 1 tab PO BEDTIME 05/29/21 05/27/22 verapamil 240 mg tablet,extended 240 mg PO BEDTIME 05/29/21 05/27/22 release albuterol sulfate 90 mcg/actuation 2 puff inhalation Q4H PRN 06/15/21 05/27/22 aerosol inhaler (Ventolin HFA) Shortness Of Breath trazodone 150 mg tablet 150 mg PO BEDTIME PRN insomnia 11/05/21 05/27/22 lisinopril 5 mg tablet 1 tab PO DAILY 11/14/21 05/27/22 benztropine 1 mg tablet 1 mg PO DAILY 12/26/21 05/27/22 naproxen 500 mg tablet 1 tab PO BID 01/23/22 05/27/22 fluphenazine HCl 2.5 mg tablet 1 tab PO BEDTIME 03/19/22 05/27/22 fluphenazine HCl 5 mg tablet 1 tab PO BEDTIME 03/19/22 05/27/22 Previous Rx's Medication Instructions Recorded fluoxetine 20 mg capsule 40 mg PO DAILY 30 days #60 caps 09/29/21 mirtazapine 7.5 mg tablet 7.5 mg PO BEDTIME MRX1 30 days #60 10/18/21 tabs prazosin 1 mg capsule 4 mg PO BEDTIME 30 days #120 caps 10/18/21 ondansetron 4 mg disintegrating 4 mg PO Q6-8H PRN nausea and 02/04/22 tablet vomiting #14 tabs docusate sodium 100 mg capsule 100 mg PO BID Constipation #60 caps 02/07/22 (Colace) Allergies Allergy/AdvReac Type Severity Reaction Status Date / Time Fish Containing Products Allergy Severe ANAPHYLAXIS Verified 05/06/22 20:47 codeine [Codeine] Allergy Unknown RASH Verified 05/06/22 20:47 Penicillins Allergy Unknown RASH Verified 05/06/22 20:47 prednisone [Prednisone] Allergy Unknown RASH Verified 05/06/22 20:47 Sulfa (Sulfonamide Allergy Unknown RASH Verified 05/06/22 20:47 Antibiotics) [Sulfa (Sulfonamides)] azithromycin [AZITHROMYCIN] AdvReac Severe RASH Verified 05/06/22 20:47 ziprasidone [From Geodon] AdvReac Intermediate dysuria, Verified 05/06/22 20:47 rash Review of Systems Review of Systems: Constitutional : No Weight loss, No Fever, No Chills, No Night Sweats, No Fatigue, No Malaise ENT/Mouth : No Hearing loss, No Ear Pain, No Nasal Congestion, No Sinus Pain, No Hoarseness, No sore throat, No Rhinorrhea, No Swallowing Difficulty Eyes: No Eye Pain, No Swelling, No Redness, No Foreign Body, No Discharge, No Vision Changes Cardiovascular : No Chest Pain, No SOB, No Dyspnea on Exertion, No Orthopnea, No Edema, No Palpitations Respiratory : No Cough, No Sputum, No Wheezing, No Smoke Exposure, No Dyspnea Gastrointestinal : No Nausea, No Vomiting, No Diarrhea, No Constipation, No abdominal Pain, No Hematochezia, No Melena Genitourinary : no irregular bleeding, No Dysuria, No Urinary Frequency, No Hematuria, No Urinary Incontinence, No Urgency, No Flank Pain, No Urinary Flow Changes, No Hesitancy Musculoskeletal : No joint pain, No Myalgias, No Joint Swelling Skin : No Skin Lesions, No rash Neuro : No Weakness, No Numbness, No Paresthesias, No Loss of Consciousness, No Dizziness, No Headache Psych : Complaining of anxiety, having command auditory hallucinations, unclear SI Heme/Lymph: No Bruising, No Bleeding,No Lymphadenopathy Endocrine : No Polyuria, No Polydipsia, No Temperature Intolerance PMFSH Past Medical History Medical History Acetaminophen overdose Borderline personality disorder Bronchitis Depression Diabetes type 2, controlled GERD (gastroesophageal reflux disease) History of attempted suicide History of non-suicidal self-harm Hyperlipidemia Hypomagnesemia Major depression MDD (major depressive disorder), recurrent episode, severe Mood disorder Overdose PTSD (post-traumatic stress disorder) Suicide attempt Suicide attempt by acetaminophen overdose Social History Social History Household Members: None Household Members Other:: Patient lives in detention. 4 in total live in detention. Housing: Other Housing Other:: detention Do you presently have visiting nurse or other home services: No Unable to assess alcohol history related to: Unknown Alcohol intake: never Patient Tobacco Use Status: Current everyday Tobacco user Tobacco use type: Cigarette Cigarette Packs Per Day: 1 Cigarettes Per Day: 20 Years Smoked: 20 e-Cigarette/Vaping Use: Never Used Substance Use Type: Marijuana Advance Directives: No Advance Directives Information Provided: No service: No Current occupational status: disabled Sexual orientation: Don't Know Physical Exam Vital Signs: Vital Signs: Last Vital Signs Temp 97.8 F 05/27/22 20:35 Pulse 95 05/27/22 20:35 Resp 16 05/27/22 20:35 BP 157/95 H 05/27/22 20:35 Pulse Ox 96 05/27/22 20:35 O2 Del Method 05/27/22 20:35 BMI result Body Mass Index 40.3 Const: Other: Appearance: Alert. Oriented X3. No acute distress. Eyes: Pupils equal, round and reactive to light. ENT: Pharynx normal. Neck: Normal inspection. Neck supple. No lymph nodes noted. No crepitus CVS: Normal heart rate and rhythm. Pulses normal. Normal S1 and S2 Respiratory: No respiratory distress. Breath sounds normal. No Wheezing. No rales Abdomen: Soft and nontender. No rigidity. No distention. Skin: Skin warm and dry. Patient has new superficial lacerations in the abdomen on the left side. Bleeding controlled. No signs of cellulitis Extremities: No lower extremity edema. No Lacerations. No Rash Neuro: Oriented X 3. No motor deficit. No sensory deficit. Moving all extremities. No slurred speech. CN 2 through 12 grossly intact Psych: calm, cooperative, normal affect Course Course Course Narrative: Labs pending. [facility] consult pending. Physician observation started at 21:35 04:30 [facility] health network consult pending. No issues overnight, vitals are stable MDM - Psych Lab Data Labs: Lab Results 05/27/22 05/27/22 Range/Units 20:46 20:46 Urine Opiates Screen Not Detected (Not Detect) Urine Fentanyl Screen Not Detected (Not Detect) Ur Barbiturates Screen Not Detected (Not Detect) Ur Phencyclidine Scrn Not Detected (Not Detect) Ur Amphetamines Screen Not Detected (Not Detect) U Benzodiazepines Scrn Not Detected (Not Detect) Urine Cocaine Screen Not Detected (Not Detect) U Marijuana (THC) Screen Not Detected (Not Detect) COVID-19 (NICK) Negative (Negative) COVID-19 Clin Com See Note Discharge Plan Discharge Clinical Impression: Auditory hallucinations Patient Disposition: Still a Patient Prescriptions: No Action metformin 500 mg tablet 1 tab PO BID atorvastatin 10 mg tablet 1 tab PO DAILY verapamil 240 mg tablet extended release 240 mg PO BEDTIME montelukast 10 mg tablet 1 tab PO BEDTIME fluticasone propionate [Flovent HFA] 110 mcg/actuation HFA aerosol inhaler 2 puff inhalation BID albuterol sulfate [Ventolin HFA] 90 mcg/actuation HFA aerosol inhaler 2 puff inhalation Q4H PRN (Reason: Shortness Of Breath) trazodone 150 mg tablet 150 mg PO BEDTIME PRN (Reason: insomnia) benztropine 1 mg tablet 1 mg PO DAILY naproxen 500 mg tablet 1 tab PO BID docusate sodium [Colace] 100 mg capsule 100 mg PO BID Qty: 60 0RF fluoxetine 20 mg Capsule 40 mg PO DAILY 30 Days Qty: 60 0RF prazosin 1 mg Capsule 4 mg PO BEDTIME 30 Days Qty: 120 0RF Protocol: Hold for SBP< HOLD for SBP < : 90 mirtazapine 7.5 mg Tablet 7.5 mg PO BEDTIME MRX1 30 Days Qty: 60 0RF lisinopril 5 mg tablet 1 tab PO DAILY ondansetron 4 mg tablet,disintegrating 4 mg PO Q6-8H PRN (Reason: nausea and vomiting) Qty: 14 0RF fluphenazine HCl 2.5 mg tablet 1 tab PO BEDTIME fluphenazine HCl 5 mg tablet 1 tab PO BEDTIME
[2022-05-27 21:48] LABS: COVID-19 Test Negative (Negative)
[2022-05-27 21:51] LABS: Amphetamine Screen Urine Not Detected (Not Detect); Barbiturates, Urine Not Detected (Not Detect); Benzodiazepines Screen Urine Not Detected (Not Detect); Cannabinoid Screen Urine Not Detected (Not Detect); Cocaine Screen Urine Not Detected (Not Detect); Fentanyl, urine Not Detected (Not Detect); Opiate Screen Urine Not Detected (Not Detect); Phencyclidine Screen Urine Not Detected (Not Detect)
[2022-05-28 06:15] VITALS: BP 149/76; PULSE 68; RESP 16; TEMP 36.3; O2SAT 96
--- NOTE | 2022-05-28 06:36 | PC.NURSE ---
Patient slept through the night, no distress observed/reported, med rec completed/pending provider's approval, [facility] referral completed/confirmed/pending ETA, behavior non concerning, VSS, will continue to monitor.
--- NOTE | 2022-05-28 07:43 | PC.NURSE ---
patient appears to remain at rest at present respirations are even and unlabored patient appears in no distress
--- NOTE | 2022-05-28 08:23 | MHC.CARE ---
CARE Team provided ED with CARE Plan
[2022-05-28 09:02] VITALS: BP 120/69; PULSE 77; RESP 16; O2SAT 94
--- NOTE | 2022-05-28 16:17 | MHC.CARE ---
Care Team called to follow up with patient. Pt reported CAH to cut herself. Pt denied engaging in self harm today. Discussed coping skill she has been trying and encouraged her to think of more ways to distract herself or regulate. Pt requested a follow up call later this evening. Care Team will contact her around 7 pm.
== END 2022-05-28 09:19 | disposition home or self-care (01) ==
PROVIDERS: Emergency Provider Emergency Medicine
DX: R44.0 Auditory hallucinations (principal); R45.851 Suicidal ideations; X78.0XXA Intentional self-harm by sharp glass, initial encounter; S31.114A Laceration without foreign body of abdominal wall, left lower quadrant without penetration into peritoneal cavity, initial encounter; F41.9 Anxiety disorder, unspecified; F60.3 Borderline personality disorder; F43.10 Post-traumatic stress disorder, unspecified; F33.2 Major depressive disorder, recurrent severe without psychotic features; E78.5 Hyperlipidemia, unspecified; E11.9 Type 2 diabetes mellitus without complications; F17.210 Nicotine dependence, cigarettes, uncomplicated; F12.90 Cannabis use, unspecified, uncomplicated; Z20.822 Contact with and (suspected) exposure to COVID-19; Z79.84 Long term (current) use of oral hypoglycemic drugs; Z79.899 Other long term (current) drug therapy; Z79.02 Long term (current) use of antithrombotics/antiplatelets; Z91.51 Personal history of suicidal behavior; Y93.9 Activity, unspecified; Y92.9 Unspecified place or not applicable; Y99.9 Unspecified external cause status
CPT/HCPCS: 80307; 87635; 99284

== ENCOUNTER 2022-06-01 19:28 | Emergency (ER) | payer MEDICARE, MEDICAID, SELFPAY ==
[2022-06-01 20:01] VITALS: BP 146/93; PULSE 84; RESP 18; TEMP 36.4; O2SAT 95; BMI 39.1
[2022-06-01 20:19] LABS: COVID-19 Test Negative (Negative)
[2022-06-01 20:23] LABS: Amphetamine Screen Urine Not Detected (Not Detect); Barbiturates, Urine Not Detected (Not Detect); Benzodiazepines Screen Urine Not Detected (Not Detect); Cannabinoid Screen Urine Not Detected (Not Detect); Cocaine Screen Urine Not Detected (Not Detect); Fentanyl, urine Not Detected (Not Detect); Opiate Screen Urine Not Detected (Not Detect); Phencyclidine Screen Urine Not Detected (Not Detect)
--- NOTE | 2022-06-01 20:33 | MHC.CARE ---
Pt is well known to CARE Team and ED. Pt states that she called the non-emergency police line because she was having negative thoughts and when they responded made her go to the ED. Pt states that she feels fine and is at her baseline. She denies SI/HI. She denies AH/VH. She reports that she is looking forward to the day treatment program tomorrow and follow up with N. Pt will be discharged back to her long-term and will follow up with N. Case discussed with ED provider Sheree.
--- NOTE | 2022-06-01 20:47 | ED.PSYCH ---
HPI - Psych General Chief Complaint: Psychiatric Symptoms Stated Complaint: SI Time Seen by Provider: 06/01/22 19:47 Source: patient Mode of arrival: ambulatory Limitations: no limitations History of Present Illness HPI Narrative: 46-year-old female with past medical history of borderline personality disorder, depression, anxiety, bipolar 2 with melancholic features, PTSD, DM, GERD? presents today with auditory and visual hallucinations X1 day.? Patient tells me that she has been having lot of panic attacks and today after one she heard voices that were telling her to harm herself by cutting. She tells me she didnt want to so she wanted to come to be evaluated. Unable to tell me what triggered today situation.? At this time denies suicidal and homicidal ideation.? Denies tactile hallucinations.? Denies drugs, alcohol and tobacco.? Denies medical complaints at this time MD complaint: suicidal ideation Related Data Home Medications Medication Instructions Recorded Confirmed atorvastatin 10 mg tablet 1 tab PO DAILY 05/29/21 06/01/22 fluticasone propionate 110 2 puff inhalation BID 05/29/21 06/01/22 mcg/actuation HFA aerosol inhaler (Flovent HFA) metformin 500 mg tablet 1 tab PO BID 05/29/21 06/01/22 montelukast 10 mg tablet 1 tab PO BEDTIME 05/29/21 06/01/22 verapamil 240 mg tablet,extended 240 mg PO BEDTIME 05/29/21 06/01/22 release albuterol sulfate 90 mcg/actuation 2 puff inhalation Q4H PRN 06/15/21 06/01/22 aerosol inhaler (Ventolin HFA) Shortness Of Breath trazodone 150 mg tablet 150 mg PO BEDTIME PRN insomnia 11/05/21 06/01/22 lisinopril 5 mg tablet 1 tab PO DAILY 11/14/21 06/01/22 benztropine 1 mg tablet 1 mg PO DAILY 12/26/21 06/01/22 naproxen 500 mg tablet 1 tab PO BID 01/23/22 06/01/22 fluphenazine HCl 2.5 mg tablet 1 tab PO BEDTIME 03/19/22 06/01/22 fluphenazine HCl 5 mg tablet 1 tab PO BEDTIME 03/19/22 06/01/22 Previous Rx's Medication Instructions Recorded fluoxetine 20 mg capsule 40 mg PO DAILY 30 days #60 caps 09/29/21 mirtazapine 7.5 mg tablet 7.5 mg PO BEDTIME MRX1 30 days #60 10/18/21 tabs prazosin 1 mg capsule 4 mg PO BEDTIME 30 days #120 caps 10/18/21 ondansetron 4 mg disintegrating 4 mg PO Q6-8H PRN nausea and 02/04/22 tablet vomiting #14 tabs docusate sodium 100 mg capsule 100 mg PO BID Constipation #60 caps 02/07/22 (Colace) Allergies Allergy/AdvReac Type Severity Reaction Status Date / Time Fish Containing Products Allergy Severe ANAPHYLAXIS Verified 05/06/22 20:47 codeine [Codeine] Allergy Unknown RASH Verified 05/06/22 20:47 Penicillins Allergy Unknown RASH Verified 05/06/22 20:47 prednisone [Prednisone] Allergy Unknown RASH Verified 05/06/22 20:47 Sulfa (Sulfonamide Allergy Unknown RASH Verified 05/06/22 20:47 Antibiotics) [Sulfa (Sulfonamides)] azithromycin [AZITHROMYCIN] AdvReac Severe RASH Verified 05/06/22 20:47 ziprasidone [From Geodon] AdvReac Intermediate dysuria, Verified 05/06/22 20:47 rash Review of Systems Review of Systems: Constitutional : No Weight loss, No Fever, No Chills, No Fatigue, No Malaise ENT/Mouth : No sore throat, No Rhinorrhea Eyes: No Eye Pain, No Swelling, No Redness Cardiovascular : No Chest Pain, No SOB, No Dyspnea on Exertion, No Orthopnea, No Edema, No Palpitations Respiratory : No Cough, No Sputum, No Wheezing Gastrointestinal : No Nausea, No Vomiting, No Diarrhea, No Constipation, No abdominal Pain, No Hematochezia, No Melena Genitourinary : No Dysuria, No Urinary Frequency, No Hematuria, Musculoskeletal : No joint pain, No Myalgias, No Joint Swelling Skin : No Skin Lesions, No rash Neuro : No Weakness, No Numbness, No Dizziness, No Headache Psych : + Anxiety/Panic, + Depression, + AH,VH, No SI, No HI Yes all other systems are reviewed and are negative [facility] Past Medical History Attestation statement: The following information was validated with the patient. Source: old records reviewed and nursing notes reviewed Medical History Acetaminophen overdose Borderline personality disorder Bronchitis Depression Diabetes type 2, controlled GERD (gastroesophageal reflux disease) History of attempted suicide History of non-suicidal self-harm Hyperlipidemia Hypomagnesemia Major depression MDD (major depressive disorder), recurrent episode, severe Mood disorder Overdose PTSD (post-traumatic stress disorder) Suicide attempt Suicide attempt by acetaminophen overdose Social History Social History Household Members: None Household Members Other:: Patient lives in care home. 4 in total live in care home. Housing: Other Housing Other:: care home Do you presently have visiting nurse or other home services: No Unable to assess alcohol history related to: Unknown Alcohol intake: never Patient Tobacco Use Status: Current everyday Tobacco user Tobacco use type: Cigarette Cigarette Packs Per Day: 1 Cigarettes Per Day: 20 Years Smoked: 20 e-Cigarette/Vaping Use: Never Used Substance Use Type: Marijuana Advance Directives: No Advance Directives Information Provided: No service: No Current occupational status: disabled Sexual orientation: Don't Know Physical Exam Vital Signs: Vital Signs: Last Vital Signs Temp 97.6 F 06/01/22 20:01 Pulse 84 06/01/22 20:01 Resp 18 06/01/22 20:01 BP 146/93 H 06/01/22 20:01 Pulse Ox 95 06/01/22 20:01 O2 Del Method 06/01/22 20:01 BMI result Body Mass Index 39.1 vss Appearance: Alert.? Oriented X3.? No acute distress.? Head: Normocephalic, atraumatic, no step-offs or deformities Eyes: Pupils equal, round and reactive to light.? ENT: Pharynx normal.? Neck: Normal inspection.? Neck supple.? CVS: Normal heart rate and rhythm.? Pulses normal.? Respiratory: No respiratory distress.? Breath sounds normal.? Abdomen: Soft and nontender.? Skin: Skin warm and dry.? Normal skin color.? Normal skin turgor.?+ old scared over self inflicted wounds. Extremities: No lower extremity edema.? No calf ttp. 5/5 strength to bilateral upper and lower extremities Neuro: Oriented X 3.? No motor deficit.? No sensory deficit. CN 2-12 intact Course Reevaluation(s) Reevaluation #1: Urine toxicology negative. Patient does not want labs at this time as she is feeling better and would like to go back to her care home. The care team did speak to patient, they feel as though patient is safe for discharge, patient denying suicidal and homicidal ideation. Patient speaking very optimistically. At this time patient will be discharged home. Time: 20:52 MDM - Psych MDM Narrative Medical decision making narrative: [birth year]49 46 year old female presents to the emergency department with anxiety, depression, VH, AH X1 day PE w/ old self inflicted wounds to b/l forearms Plan- medical clearanc and N eval. Medical Records Attestation: I reviewed the patient's medical records. Lab Data Attestation: I reviewed the patient's lab results. Labs: Lab Results 06/01/22 06/01/22 Range/Units 19:52 19:53 Urine Opiates Screen Not Detected (Not Detect) Urine Fentanyl Screen Not Detected (Not Detect) Ur Barbiturates Screen Not Detected (Not Detect) Ur Phencyclidine Scrn Not Detected (Not Detect) Ur Amphetamines Screen Not Detected (Not Detect) U Benzodiazepines Scrn Not Detected (Not Detect) Urine Cocaine Screen Not Detected (Not Detect) U Marijuana (THC) Screen Not Detected (Not Detect) COVID-19 (NICK) Negative (Negative) COVID-19 Clin Com See Note Critical Care Time Critical Care Time Critical Care Time: No Discharge Plan Discharge Clinical Impression: Anxiety, Depression Patient Disposition: Home, Self-Care Instructions: Depression (ED), Anxiety (ED) Additional Instructions: Take your medications as prescribed. If you were prescribed antibiotics today, it is important that you take your medication to their entirety, do not skip any doses, do not finish them early. Follow-up with your primary care provider this week. Return to the emergency department with new or worsening symptoms. In case of emergency call 911 Prescriptions: No Action metformin 500 mg tablet 1 tab PO BID atorvastatin 10 mg tablet 1 tab PO DAILY verapamil 240 mg tablet extended release 240 mg PO BEDTIME montelukast 10 mg tablet 1 tab PO BEDTIME fluticasone propionate [Flovent HFA] 110 mcg/actuation HFA aerosol inhaler 2 puff inhalation BID albuterol sulfate [Ventolin HFA] 90 mcg/actuation HFA aerosol inhaler 2 puff inhalation Q4H PRN (Reason: Shortness Of Breath) trazodone 150 mg tablet 150 mg PO BEDTIME PRN (Reason: insomnia) benztropine 1 mg tablet 1 mg PO DAILY naproxen 500 mg tablet 1 tab PO BID docusate sodium [Colace] 100 mg capsule 100 mg PO BID Qty: 60 0RF fluoxetine 20 mg Capsule 40 mg PO DAILY 30 Days Qty: 60 0RF prazosin 1 mg Capsule 4 mg PO BEDTIME 30 Days Qty: 120 0RF Protocol: Hold for SBP< HOLD for SBP < : 90 mirtazapine 7.5 mg Tablet 7.5 mg PO BEDTIME MRX1 30 Days Qty: 60 0RF lisinopril 5 mg tablet 1 tab PO DAILY ondansetron 4 mg tablet,disintegrating 4 mg PO Q6-8H PRN (Reason: nausea and vomiting) Qty: 14 0RF fluphenazine HCl 2.5 mg tablet 1 tab PO BEDTIME fluphenazine HCl 5 mg tablet 1 tab PO BEDTIME Referrals: [facility] [Provider Group[facility] - [facility] - 2 days Maribel Marquez NP [Primary Care Provider] - Interventions: ED Discharge Assessment Last Done: 06/01/22 20:56 Discharge Date/Time: 06/01/22 21:08
--- NOTE | 2022-06-01 20:56 | PC.NURSE ---
Saud Bentley patient refusing blood draw.
--- NOTE | 2022-06-01 20:56 | MHC.CARE ---
Pt is being assessed by CARE TEAM due to requesting to be discharged. She explained she called the non emergency line , seeking support. She reported police officers arrived to her home and was forced to come to the ED. Pt explained she initially called to seek support from crisis. She denied experiencing suicidal and homicidal ideation, plan or intent; however stated she was experiencing depressive thoughts . She reported she is looking forward to attending her day program tomorrow and reported she is engaging in therapy. She stated I am trying not come to the hospital when I don't need to . Mood and affect is irritable secondary to being in the ED. Insight, judgment and impulse control appear to be fair. Pt was provided with [facility] crisis contact information and advised to utilize for support.
== END 2022-06-01 21:08 | disposition home or self-care (01) ==
PROVIDERS: Physician Assistant; Emergency Provider Emergency Medicine; PCP Nurse Practitioner Family
DX: F41.9 Anxiety disorder, unspecified (principal); F31.81 Bipolar II disorder; R45.851 Suicidal ideations; R44.0 Auditory hallucinations; R44.1 Visual hallucinations; Z20.822 Contact with and (suspected) exposure to COVID-19; F60.9 Personality disorder, unspecified; F43.10 Post-traumatic stress disorder, unspecified; E11.9 Type 2 diabetes mellitus without complications; E78.5 Hyperlipidemia, unspecified; F17.210 Nicotine dependence, cigarettes, uncomplicated; F12.90 Cannabis use, unspecified, uncomplicated; Z91.51 Personal history of suicidal behavior; Z79.84 Long term (current) use of oral hypoglycemic drugs; Z79.02 Long term (current) use of antithrombotics/antiplatelets; Z79.899 Other long term (current) drug therapy
CPT/HCPCS: 80307; 87635; 99282; 99284

== ENCOUNTER 2022-06-03 16:20 | Emergency (ER) | payer MEDICARE, MEDICAID, SELFPAY ==
[2022-06-03 16:28] VITALS: BP 130/80; PULSE 86; PULSE 88; RESP 18; TEMP 36.5; O2SAT 96; O2SAT 98; BMI 33.3
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
[2022-06-03] MEDS: LORazepam 1 MG TABLET PO (16:50)
[2022-06-03] MEDS: Nicotine 14 MG PATCH.TD24 TRANSDERMA (16:50)
[2022-06-03 17:04] LABS: COVID-19 Test Negative (Negative)
--- NOTE | 2022-06-03 19:04 | MHC.CARE ---
Pt is well known to CARE Team and ED. Pt reports she woke up today and was feeling good, she went with staff and other [facility] peers to do errands pay some bills and do some grocery shopping and was having a nice day. Pt reports once she arrived home command hallucinations came quickly telling her overdose on Tylenol , however she states I never want to do that again referring to an overdose on Tylenol in the recent past which resulted in ICU admission. Pt reports 911 was called and she transported on a section 12. Pt reports she feels fine and her voices are manageable and at baseline, she denies SI/HI/VH and is requesting discharge back to [facility]. She reports she has outpatient therapy appt on Sunday and her trigger today was a new peer that was recently placed at [facility] who has been making statements that she wants to Pt reports this triggered the voices today, Pt reports her mood is good , affect is bright and she is laughing joking and smiling. Pt will be discharged back to her [facility] and reports she will given staff her money to hold so she can't buy Tylenol. CARE team called [facility] and discussed Pt's plan when she arrives back home, staff is agreeable to safety plan. Case discussed with ED provider John was provided for transportation home.
== END 2022-06-03 18:50 | disposition home or self-care (01) ==
PROVIDERS: Physician Assistant; Emergency Provider Emergency Medicine
DX: R45.851 Suicidal ideations (principal); R44.0 Auditory hallucinations; Z20.822 Contact with and (suspected) exposure to COVID-19; F32.9 Major depressive disorder, single episode, unspecified; Z91.51 Personal history of suicidal behavior; F60.3 Borderline personality disorder; F43.10 Post-traumatic stress disorder, unspecified; F41.9 Anxiety disorder, unspecified; E11.9 Type 2 diabetes mellitus without complications; E78.5 Hyperlipidemia, unspecified; F17.210 Nicotine dependence, cigarettes, uncomplicated; F12.90 Cannabis use, unspecified, uncomplicated; Z79.02 Long term (current) use of antithrombotics/antiplatelets; Z79.899 Other long term (current) drug therapy; Z79.84 Long term (current) use of oral hypoglycemic drugs
CPT/HCPCS: 87635; 99282; 99285

== ENCOUNTER 2022-06-04 19:34 | Emergency (ER) | payer MEDICARE, MEDICAID, SELFPAY ==
[2022-06-04 19:48] VITALS: BP 141/72; PULSE 89; RESP 18; TEMP 36.9; O2SAT 97; BMI 36.6
[2022-06-04 20:28] LABS: COVID-19 Test Negative (Negative)
--- NOTE | 2022-06-04 20:36 | ED_ITS ---
HPI - Psych General Chief Complaint: Psychiatric Symptoms Stated Complaint: SI Time Seen by Provider: 06/04/22 20:36 Source: patient, EMS and old records reviewed Mode of arrival: EMS Limitations: no limitations History of Present Illness HPI Narrative: 46-year-old female with history of depression, borderline personality disorder, auditory hallucinations, anxiety, PTSD who presents to the ER with auditory hallucinations, voices telling her to harm herself. She has had several presentations to the ER for the same. MD complaint: feels depressed and hallucinations Onset (ago): year(s) Duration: constant History of same: Yes Relieving factors: none Exacerbating factors: none Associated psychiatric symptoms: depression and auditory hallucinations Associated symptoms: denies other symptoms Treatments prior to arrival: none If self harm: admits thoughts of self harm Related Data Home Medications Medication Instructions Recorded Confirmed atorvastatin 10 mg tablet 1 tab PO DAILY 05/29/21 06/01/22 fluticasone propionate 110 2 puff inhalation BID 05/29/21 06/01/22 mcg/actuation HFA aerosol inhaler (Flovent HFA) metformin 500 mg tablet 1 tab PO BID 05/29/21 06/01/22 montelukast 10 mg tablet 1 tab PO BEDTIME 05/29/21 06/01/22 verapamil 240 mg tablet,extended 240 mg PO BEDTIME 05/29/21 06/01/22 release albuterol sulfate 90 mcg/actuation 2 puff inhalation Q4H PRN 06/15/21 06/01/22 aerosol inhaler (Ventolin HFA) Shortness Of Breath trazodone 150 mg tablet 150 mg PO BEDTIME PRN insomnia 11/05/21 06/01/22 lisinopril 5 mg tablet 1 tab PO DAILY 11/14/21 06/01/22 benztropine 1 mg tablet 1 mg PO DAILY 12/26/21 06/01/22 naproxen 500 mg tablet 1 tab PO BID 01/23/22 06/01/22 fluphenazine HCl 2.5 mg tablet 1 tab PO BEDTIME 03/19/22 06/01/22 fluphenazine HCl 5 mg tablet 1 tab PO BEDTIME 03/19/22 06/01/22 Previous Rx's Medication Instructions Recorded fluoxetine 20 mg capsule 40 mg PO DAILY 30 days #60 caps 09/29/21 mirtazapine 7.5 mg tablet 7.5 mg PO BEDTIME MRX1 30 days #60 10/18/21 tabs prazosin 1 mg capsule 4 mg PO BEDTIME 30 days #120 caps 10/18/21 ondansetron 4 mg disintegrating 4 mg PO Q6-8H PRN nausea and 02/04/22 tablet vomiting #14 tabs docusate sodium 100 mg capsule 100 mg PO BID Constipation #60 caps 02/07/22 (Colace) Allergies Allergy/AdvReac Type Severity Reaction Status Date / Time Fish Containing Products Allergy Severe ANAPHYLAXIS Verified 05/06/22 20:47 codeine [Codeine] Allergy Unknown RASH Verified 05/06/22 20:47 Penicillins Allergy Unknown RASH Verified 05/06/22 20:47 prednisone [Prednisone] Allergy Unknown RASH Verified 05/06/22 20:47 Sulfa (Sulfonamide Allergy Unknown RASH Verified 05/06/22 20:47 Antibiotics) [Sulfa (Sulfonamides)] azithromycin [AZITHROMYCIN] AdvReac Severe RASH Verified 05/06/22 20:47 ziprasidone [From Geodon] AdvReac Intermediate dysuria, Verified 05/06/22 20:47 rash Review of Systems Review of Systems: Constitutional: No Fever, No Chills ENT/Mouth: No sore throat, No Rhinorrhea, No Swallowing Difficulty Cardiovascular: No Chest Pain, No SOB Respiratory: No Cough, No Sputum Gastrointestinal: No Nausea, No Vomiting, No Diarrhea, No abdominal Pain Genitourinary: No Dysuria, No Urinary Frequency, No Hematuria Musculoskeletal: No joint pain, No Myalgias Skin: No Skin Lesions, No rash Neuro: No Weakness, No Numbness, No Dizziness, No Headache Psych: + Anxiety/Panic, + Depression, +SI, No HI, +AH, No VH Heme/Lymph: No Bruising, No Lymphadenopathy Endocrine: No Polyuria, No Polydipsia PMFSH Past Medical History Medical History Acetaminophen overdose Borderline personality disorder Bronchitis Depression Diabetes type 2, controlled GERD (gastroesophageal reflux disease) History of attempted suicide History of non-suicidal self-harm Hyperlipidemia Hypomagnesemia Major depression MDD (major depressive disorder), recurrent episode, severe Mood disorder Overdose PTSD (post-traumatic stress disorder) Suicide attempt Suicide attempt by acetaminophen overdose Social History Social History Household Members: None Household Members Other:: Patient lives in [facility]. 4 in total live in penitentiary. Housing: Other Housing Other:: penitentiary Do you presently have visiting nurse or other home services: No Unable to assess alcohol history related to: Unknown Alcohol intake: never Patient Tobacco Use Status: Current everyday Tobacco user Tobacco use type: Cigarette Cigarette Packs Per Day: 1 Cigarettes Per Day: 20 Years Smoked: 20 e-Cigarette/Vaping Use: Never Used Substance Use Type: Marijuana Advance Directives: No Advance Directives Information Provided: No service: No Current occupational status: disabled Sexual orientation: Don't Know Physical Exam Vital Signs: Vital Signs: Last Vital Signs Temp 98.4 F 06/04/22 19:48 Pulse 89 06/04/22 19:48 Resp 18 06/04/22 19:48 BP 141/72 H 06/04/22 19:48 Pulse Ox 97 06/04/22 19:48 O2 Del Method 06/04/22 19:48 BMI result Body Mass Index 36.6 Appearance: Alert. Oriented X3. No acute distress. Eyes: Pupils equal, round and reactive to light. ENT: Pharynx normal. Neck: Normal inspection. Neck supple. CVS: Normal heart rate and rhythm. Pulses normal. Respiratory: No respiratory distress. Breath sounds normal. Abdomen: Soft and nontender. +BS x4 Skin: Skin warm and dry. Normal skin color. Normal skin turgor. No rashes. Extremities: No lower extremity edema. well healed linear scars on bilateral forearms. Neuro/psych: Oriented X 3. No motor deficit. No sensory deficit. CN II-XII intact. Depressed, flat affect. reports AH. No VH. No SI Course Course Course Narrative: 46-year-old female well known to this emergency department with history of borderline personality disorder, PTSD, depression, auditory hallucinations who presents to the ER with command auditory hallucinations with voices telling her to hurt herself. On arrival to the ER she reports she feels safe enough to go home. She is not actively suicidal. These auditory hallucinations are her baseline. Care team touch base with the patient and agree she is stable for discharge back to her [facility]. MDM - Psych Lab Data Labs: Lab Results 06/04/22 06/04/22 Range/Units 20:02 20:33 Urine Opiates Screen Not Detected (Not Detect) Urine Fentanyl Screen Not Detected (Not Detect) Ur Barbiturates Screen Not Detected (Not Detect) Ur Phencyclidine Scrn Not Detected (Not Detect) Ur Amphetamines Screen Not Detected (Not Detect) U Benzodiazepines Scrn Not Detected (Not Detect) Urine Cocaine Screen Not Detected (Not Detect) U Marijuana (THC) Screen Not Detected (Not Detect) COVID-19 ([facility]) Negative (Negative) COVID-19 Clin Com See Note Critical Care Time Critical Care Time Critical Care Time: No Discharge Plan Discharge Clinical Impression: Auditory hallucination Patient Disposition: Home, Self-Care Instructions: Psychiatric Hallucinations (ED) Additional Instructions: Take all of your medications as prescribed Follow-up with your doctor, therapist and psychiatrist as soon as possible. If you develop new or worsening symptoms call 911 or come back to the ER for further evaluation. Prescriptions: No Action metformin 500 mg tablet 1 tab PO BID atorvastatin 10 mg tablet 1 tab PO DAILY verapamil 240 mg tablet extended release 240 mg PO BEDTIME montelukast 10 mg tablet 1 tab PO BEDTIME fluticasone propionate [Flovent HFA] 110 mcg/actuation HFA aerosol inhaler 2 puff inhalation BID albuterol sulfate [Ventolin HFA] 90 mcg/actuation HFA aerosol inhaler 2 puff inhalation Q4H PRN (Reason: Shortness Of Breath) trazodone 150 mg tablet 150 mg PO BEDTIME PRN (Reason: insomnia) benztropine 1 mg tablet 1 mg PO DAILY naproxen 500 mg tablet 1 tab PO BID docusate sodium [Colace] 100 mg capsule 100 mg PO BID Qty: 60 0RF fluoxetine 20 mg Capsule 40 mg PO DAILY 30 Days Qty: 60 0RF prazosin 1 mg Capsule 4 mg PO BEDTIME 30 Days Qty: 120 0RF Protocol: Hold for SBP< HOLD for SBP < : 90 mirtazapine 7.5 mg Tablet 7.5 mg PO BEDTIME MRX1 30 Days Qty: 60 0RF lisinopril 5 mg tablet 1 tab PO DAILY ondansetron 4 mg tablet,disintegrating 4 mg PO Q6-8H PRN (Reason: nausea and vomiting) Qty: 14 0RF fluphenazine HCl 2.5 mg tablet 1 tab PO BEDTIME fluphenazine HCl 5 mg tablet 1 tab PO BEDTIME
[2022-06-04 20:57] LABS: Amphetamine Screen Urine Not Detected (Not Detect); Barbiturates, Urine Not Detected (Not Detect); Benzodiazepines Screen Urine Not Detected (Not Detect); Cannabinoid Screen Urine Not Detected (Not Detect); Cocaine Screen Urine Not Detected (Not Detect); Fentanyl, urine Not Detected (Not Detect); Opiate Screen Urine Not Detected (Not Detect); Phencyclidine Screen Urine Not Detected (Not Detect)
== END 2022-06-04 21:49 | disposition home or self-care (01) ==
PROVIDERS: Physician Assistant; Emergency Provider Emergency Medicine; PCP Nurse Practitioner Family
DX: F33.1 Major depressive disorder, recurrent, moderate (principal); R45.851 Suicidal ideations; R44.0 Auditory hallucinations; F17.210 Nicotine dependence, cigarettes, uncomplicated; Z20.822 Contact with and (suspected) exposure to COVID-19; Z79.899 Other long term (current) drug therapy; Z71.6 Tobacco abuse counseling
CPT/HCPCS: 80307; 87635; 99282; 99284

== ENCOUNTER 2022-06-09 20:21 | Emergency (ER) | payer MEDICARE, MEDICAID, SELFPAY ==
--- NOTE | 2022-06-09 20:42 | ED_ITS ---
HPI - Psych General Chief Complaint: Psychiatric Symptoms Stated Complaint: crisis Source: patient and EMS Mode of arrival: EMS Limitations: no limitations History of Present Illness HPI Narrative: 46-year-old female presents via EMS for suicidal ideation. Reports that she took 10 Tylenol 3 days ago because she 1 fall asleep. She does not report any Tylenol use today, states that she is unable to manage her emotions. MD complaint: suicidal ideation Onset (ago): unknown Duration: constant History of same: Yes Relieving factors: none Context: significant life stressor Associated psychiatric symptoms: depression, suicidal ideation, racing thoughts and auditory hallucinations Associated symptoms: denies other symptoms Treatments prior to arrival: none If self harm: admits thoughts of self harm, has plan and has acted on plan Related Data Home Medications Medication Instructions Recorded Confirmed atorvastatin 10 mg tablet 1 tab PO DAILY 05/29/21 06/01/22 fluticasone propionate 110 2 puff inhalation BID 05/29/21 06/01/22 mcg/actuation HFA aerosol inhaler (Flovent HFA) metformin 500 mg tablet 1 tab PO BID 05/29/21 06/01/22 montelukast 10 mg tablet 1 tab PO BEDTIME 05/29/21 06/01/22 verapamil 240 mg tablet,extended 240 mg PO BEDTIME 05/29/21 06/01/22 release albuterol sulfate 90 mcg/actuation 2 puff inhalation Q4H PRN 06/15/21 06/01/22 aerosol inhaler (Ventolin HFA) Shortness Of Breath trazodone 150 mg tablet 150 mg PO BEDTIME PRN insomnia 11/05/21 06/01/22 lisinopril 5 mg tablet 1 tab PO DAILY 11/14/21 06/01/22 benztropine 1 mg tablet 1 mg PO DAILY 12/26/21 06/01/22 naproxen 500 mg tablet 1 tab PO BID 01/23/22 06/01/22 fluphenazine HCl 2.5 mg tablet 1 tab PO BEDTIME 03/19/22 06/01/22 fluphenazine HCl 5 mg tablet 1 tab PO BEDTIME 03/19/22 06/01/22 Previous Rx's Medication Instructions Recorded fluoxetine 20 mg capsule 40 mg PO DAILY 30 days #60 caps 09/29/21 mirtazapine 7.5 mg tablet 7.5 mg PO BEDTIME MRX1 30 days #60 10/18/21 tabs prazosin 1 mg capsule 4 mg PO BEDTIME 30 days #120 caps 10/18/21 ondansetron 4 mg disintegrating 4 mg PO Q6-8H PRN nausea and 02/04/22 tablet vomiting #14 tabs docusate sodium 100 mg capsule 100 mg PO BID Constipation #60 caps 02/07/22 (Colace) Allergies Allergy/AdvReac Type Severity Reaction Status Date / Time Fish Containing Products Allergy Severe ANAPHYLAXIS Verified 05/06/22 20:47 codeine [Codeine] Allergy Unknown RASH Verified 05/06/22 20:47 Penicillins Allergy Unknown RASH Verified 05/06/22 20:47 prednisone [Prednisone] Allergy Unknown RASH Verified 05/06/22 20:47 Sulfa (Sulfonamide Allergy Unknown RASH Verified 05/06/22 20:47 Antibiotics) [Sulfa (Sulfonamides)] azithromycin [AZITHROMYCIN] AdvReac Severe RASH Verified 05/06/22 20:47 ziprasidone [From Geodon] AdvReac Intermediate dysuria, Verified 05/06/22 20:47 rash Review of Systems Review of Systems: Constitutional: No Fever, No Chills ENT/Mouth: No Ear Pain, No Nasal Congestion, No sore throat Eyes: No Eye Pain, No Swelling, No Redness Cardiovascular: No Chest Pain, No SOB Respiratory: No Cough, No Sputum, No Dyspnea Gastrointestinal: No Nausea, No Vomiting, No Diarrhea, No Hematochezia, No Melena Genitourinary: No Dysuria, No Urinary Frequency, No Hematuria Musculoskeletal: No Myalgias Skin: No Skin Lesions, No rash Neuro: No Weakness, No Numbness, No Paresthesias, No Dizziness, No Headache Psych: positive Anxiety, positive Depression, positive SI Heme/Lymph: No Lymphadenopathy Endocrine: No Polyuria, No Polydipsia Yes all other systems are reviewed and are negative [facility] Past Medical History Attestation statement: The following information was validated with the patient. Source: old records reviewed Medical History Acetaminophen overdose Borderline personality disorder Bronchitis Depression Diabetes type 2, controlled GERD (gastroesophageal reflux disease) History of attempted suicide History of non-suicidal self-harm Hyperlipidemia Hypomagnesemia Major depression MDD (major depressive disorder), recurrent episode, severe Mood disorder Overdose PTSD (post-traumatic stress disorder) Suicide attempt Suicide attempt by acetaminophen overdose Social History Social History Household Members: None Household Members Other:: Patient lives in residential. 4 in total live in residential. Housing: Other Housing Other:: residential Do you presently have visiting nurse or other home services: No Unable to assess alcohol history related to: Unknown Alcohol intake: never Patient Tobacco Use Status: Current everyday Tobacco user Tobacco use type: Cigarette Cigarette Packs Per Day: 1 Cigarettes Per Day: 20 Years Smoked: 20 e-Cigarette/Vaping Use: Never Used Substance Use Type: Marijuana Advance Directives: No Advance Directives Information Provided: No service: No Current occupational status: disabled Sexual orientation: Don't Know Physical Exam Vital Signs: Vital Signs: Last Vital Signs Temp 97.8 F 06/09/22 20:44 Pulse 87 06/09/22 20:44 Resp 17 06/09/22 20:44 BP 149/94 H 06/09/22 20:44 Pulse Ox 97 06/09/22 20:44 O2 Del Method 06/09/22 20:44 BMI result Body Mass Index 41.6 Appearance: Alert.? Oriented X3.? No acute distress.? Eyes: Pupils equal, round and reactive to light.? Sclera nonicteric. ENT: Pharynx normal. Neck: Normal inspection.? Neck supple. CVS: Normal heart rate and rhythm.? Pulses normal. Respiratory: No respiratory distress.? Breath sounds normal. Abdomen: Soft and nontender. Skin:? Numerous healed scars to all extremities from self-inflicted wounds.? Skin warm and dry.? Normal skin color.? Normal skin turgor. Extremities: No lower extremity edema.? Gait well-balanced well coordinated. Neuro: No motor deficit.? No sensory deficit.? Cranial nerves 2-12 intact.? Course Course Course Narrative: 46-year-old female presents via EMS for suicidal ideation with plan to overdose on Tylenol. Patient states that she is not able to manage her emotions. Plan of care is for Tylenol lab levels, and COVID testing. Will follow care plan. 21:39 patient states that she feels well enough to go home. She has had a panic attack and felt more comfortable being in a safe place. She would like to be discharged home. Care team agrees with this plan. MDM - Psych Differential Diagnosis Differential diagnosis: Likely suicidal ideation, depression and acute anxiety Medical Records Attestation: I reviewed the patient's medical records. Lab Data Attestation: I reviewed the patient's lab results. Labs: Lab Results 06/09/22 06/09/22 Range/Units 21:26 21:27 Acetaminophen Cancelled COVID-19 ([facility]) Negative (Negative) COVID-19 Clin Com See Note Discharge Plan Discharge Clinical Impression: Suicidal ideation, Depression Patient Disposition: Home, Self-Care Additional Instructions: Please follow-up with outpatient psychiatry as scheduled. Thank you for choosing this emergency department for evaluation. Please follow-up with primary care physician as needed. Return to the emergency department for any new, concerning, or worsening symptoms. Prescriptions: No Action metformin 500 mg tablet 1 tab PO BID atorvastatin 10 mg tablet 1 tab PO DAILY verapamil 240 mg tablet extended release 240 mg PO BEDTIME montelukast 10 mg tablet 1 tab PO BEDTIME fluticasone propionate [Flovent HFA] 110 mcg/actuation HFA aerosol inhaler 2 puff inhalation BID albuterol sulfate [Ventolin HFA] 90 mcg/actuation HFA aerosol inhaler 2 puff inhalation Q4H PRN (Reason: Shortness Of Breath) trazodone 150 mg tablet 150 mg PO BEDTIME PRN (Reason: insomnia) benztropine 1 mg tablet 1 mg PO DAILY naproxen 500 mg tablet 1 tab PO BID docusate sodium [Colace] 100 mg capsule 100 mg PO BID Qty: 60 0RF fluoxetine 20 mg Capsule 40 mg PO DAILY 30 Days Qty: 60 0RF prazosin 1 mg Capsule 4 mg PO BEDTIME 30 Days Qty: 120 0RF Protocol: Hold for SBP< HOLD for SBP < : 90 mirtazapine 7.5 mg Tablet 7.5 mg PO BEDTIME MRX1 30 Days Qty: 60 0RF lisinopril 5 mg tablet 1 tab PO DAILY ondansetron 4 mg tablet,disintegrating 4 mg PO Q6-8H PRN (Reason: nausea and vomiting) Qty: 14 0RF fluphenazine HCl 2.5 mg tablet 1 tab PO BEDTIME fluphenazine HCl 5 mg tablet 1 tab PO BEDTIME Interventions: ED Discharge Assessment Last Done: 06/09/22 21:47 Discharge Date/Time: 06/09/22 21:55
[2022-06-09 20:44] VITALS: BP 149/94; PULSE 87; RESP 17; TEMP 36.6; O2SAT 97; BMI 41.6
--- NOTE | 2022-06-09 21:40 | MHC.CARE ---
Pt was assessed by CARE TEAM due to arriving via ambulance. She expressed thoughts to hurt herself due to experiencing auditory hallucinations with command telling her to cut or scratch herself. Pt discussed she tried to utilize her coping skills such as seeking support from staff, attempted to watch television and attempted to listen to music. She however stated the voices just kept getting stronger . She was observed tearful throughout assessment and requested a few minutes to calm down . After a few minutes and meeting with the doctor, pt requested to be discharged. She stated I was just having another panic attack . She reported the voices have become quieter since she arrived to ED and spoke to the doctor. She denied suicidal and homicidal ideation, plan or intent; and does not appear to be responding to an internal stimuli. Rosario Marsh was agreeable with discharge.
[2022-06-09 21:55] LABS: COVID-19 Test Negative (Negative); IDNOW Serial# 16C4AD1C
== END 2022-06-09 21:55 | disposition home or self-care (01) ==
PROVIDERS: Nurse Practitioner Family; Emergency Provider Internal Medicine; PCP Nurse Practitioner Family
DX: F33.1 Major depressive disorder, recurrent, moderate (principal); R45.851 Suicidal ideations; R44.0 Auditory hallucinations; F17.210 Nicotine dependence, cigarettes, uncomplicated; Z71.6 Tobacco abuse counseling; Z20.822 Contact with and (suspected) exposure to COVID-19; Z79.899 Other long term (current) drug therapy
CPT/HCPCS: 87635; 99282; 99283

== ENCOUNTER 2022-06-15 18:28 | Emergency (ER) | payer MEDICARE, MEDICAID, SELFPAY ==
[2022-06-15 18:49] VITALS: BP 136/90; BP 142/85; PULSE 104; PULSE 96; RESP 20; TEMP 36.6; O2SAT 97; O2SAT 99; BMI 34.4
[2022-06-15] MEDS: LORazepam 1 MG TABLET PO (19:57)
[2022-06-15 20:20] LABS: Appearance Urine Clear; Color Urine Yellow; Glucose Urine UA Negative (Negative); Leukocyte Esterase Urine Negative (Negative); Nitrite Urine Negative (Negative); Specific Gravity - Urine <= 1.005 (1.005-1.025); Urine Blood Negative (Negative); Urine Ketones Negative (Negative); Urine Protein Negative (Neg-Trace)
[2022-06-15 20:28] LABS: Amphetamine Screen Urine Not Detected (Not Detect); Barbiturates, Urine Not Detected (Not Detect); Benzodiazepines Screen Urine Not Detected (Not Detect); Cannabinoid Screen Urine Not Detected (Not Detect); Cocaine Screen Urine Not Detected (Not Detect); Fentanyl, urine Not Detected (Not Detect); Opiate Screen Urine Not Detected (Not Detect); Phencyclidine Screen Urine Not Detected (Not Detect)
[2022-06-15 20:29] LABS: COVID-19 Test Negative (Negative)
--- NOTE | 2022-06-15 21:21 | ED.PSYCH ---
HPI - Psych General Chief Complaint: Psychiatric Symptoms Stated Complaint: CRISIS Time Seen by Provider: 06/15/22 18:38 Source: patient Limitations: no limitations History of Present Illness HPI Narrative: 46-year-old female who presents emergency department for evaluation of suicidal ideation. The patient states she has been hearing voices for approximately 3 days. She states she hears a male voice which is telling her to hurt herself. She states that she was going to overdose on her medications but then a friend stopped her. She states that she then scratched both forearms in order to try to hurt herself. The patient is well-known to the emergency department is seen here frequently with similar complaints. She denied fever, chills, chest pain, shortness of breath. She denied nausea, vomiting or abdominal pain. MD complaint: suicidal ideation and feels depressed Onset (ago): day(s) (3) Duration: constant History of same: Yes Relieving factors: none Exacerbating factors: none Associated psychiatric symptoms: depression, suicidal ideation and auditory hallucinations Associated symptoms: denies other symptoms Treatments prior to arrival: none If self harm: admits thoughts of self harm and has acted on plan (Scratch both her arms with her fingernails.) Related Data Home Medications Medication Instructions Recorded Confirmed atorvastatin 10 mg tablet 1 tab PO DAILY 05/29/21 06/01/22 fluticasone propionate 110 2 puff inhalation BID 05/29/21 06/01/22 mcg/actuation HFA aerosol inhaler (Flovent HFA) metformin 500 mg tablet 1 tab PO BID 05/29/21 06/01/22 montelukast 10 mg tablet 1 tab PO BEDTIME 05/29/21 06/01/22 verapamil 240 mg tablet,extended 240 mg PO BEDTIME 05/29/21 06/01/22 release albuterol sulfate 90 mcg/actuation 2 puff inhalation Q4H PRN 06/15/21 06/01/22 aerosol inhaler (Ventolin HFA) Shortness Of Breath trazodone 150 mg tablet 150 mg PO BEDTIME PRN insomnia 11/05/21 06/01/22 lisinopril 5 mg tablet 1 tab PO DAILY 11/14/21 06/01/22 benztropine 1 mg tablet 1 mg PO DAILY 12/26/21 06/01/22 naproxen 500 mg tablet 1 tab PO BID 01/23/22 06/01/22 fluphenazine HCl 2.5 mg tablet 1 tab PO BEDTIME 03/19/22 06/01/22 fluphenazine HCl 5 mg tablet 1 tab PO BEDTIME 03/19/22 06/01/22 Previous Rx's Medication Instructions Recorded fluoxetine 20 mg capsule 40 mg PO DAILY 30 days #60 caps 09/29/21 mirtazapine 7.5 mg tablet 7.5 mg PO BEDTIME MRX1 30 days #60 10/18/21 tabs prazosin 1 mg capsule 4 mg PO BEDTIME 30 days #120 caps 10/18/21 ondansetron 4 mg disintegrating 4 mg PO Q6-8H PRN nausea and 02/04/22 tablet vomiting #14 tabs docusate sodium 100 mg capsule 100 mg PO BID Constipation #60 caps 02/07/22 (Colace) Allergies Allergy/AdvReac Type Severity Reaction Status Date / Time Fish Containing Products Allergy Severe ANAPHYLAXIS Verified 05/06/22 20:47 codeine [Codeine] Allergy Unknown RASH Verified 05/06/22 20:47 Penicillins Allergy Unknown RASH Verified 05/06/22 20:47 prednisone [Prednisone] Allergy Unknown RASH Verified 05/06/22 20:47 Sulfa (Sulfonamide Allergy Unknown RASH Verified 05/06/22 20:47 Antibiotics) [Sulfa (Sulfonamides)] azithromycin [AZITHROMYCIN] AdvReac Severe RASH Verified 05/06/22 20:47 ziprasidone [From Geodon] AdvReac Intermediate dysuria, Verified 05/06/22 20:47 rash Review of Systems Review of Systems: Yes all other systems are reviewed and are negative PMFSH Past Medical History Medical History Acetaminophen overdose Borderline personality disorder Bronchitis Depression Diabetes type 2, controlled GERD (gastroesophageal reflux disease) History of attempted suicide History of non-suicidal self-harm Hyperlipidemia Hypomagnesemia Major depression MDD (major depressive disorder), recurrent episode, severe Mood disorder Overdose PTSD (post-traumatic stress disorder) Suicide attempt Suicide attempt by acetaminophen overdose Social History Social History Household Members: None Household Members Other:: Patient lives in senior living. 4 in total live in senior living. Housing: Other Housing Other:: senior living Do you presently have visiting nurse or other home services: No Unable to assess alcohol history related to: Unknown Alcohol intake: never Patient Tobacco Use Status: Current everyday Tobacco user Tobacco use type: Cigarette Cigarette Packs Per Day: 1 Cigarettes Per Day: 20 Years Smoked: 20 e-Cigarette/Vaping Use: Never Used Substance Use Type: Marijuana Advance Directives: No Advance Directives Information Provided: No service: No Current occupational status: disabled Sexual orientation: Don't Know Physical Exam Vital Signs: Vital Signs: Last Vital Signs Temp 97.8 F 06/15/22 18:49 Pulse 96 06/15/22 18:49 Resp 20 06/15/22 18:49 BP 142/85 H 06/15/22 18:49 Pulse Ox 97 06/15/22 18:49 O2 Del Method 06/15/22 18:49 BMI result Body Mass Index 34.4 Const: General: cooperative and no acute distress Orientation/consciousness: oriented to person and oriented to place Limitations: no limitations HEENT: Head: Yes normal to inspection, Yes normocephalic and Yes atraumatic Ears: external ears normal General nose exam: Normal external nose present Face and sinus: Yes normal facial exam Mouth: Normal oral and palatal mucosa present Throat: Yes posterior oropharynx normal Eyes: General: appearance normal, both eyes and all related structures Pupils: Equal, round and reactive pupils present Neck: Neck: Yes normal visual inspection, Yes no lymphadenopathy, Yes trachea midline and Yes supple Chest: Chest palpation & inspection: normal inspection of the chest and normal palpation of entire chest wall Resp: Effort & Inspection: normal respiratory effort and able to speak in complete sentences Auscultation: clear to auscultation bilaterally Cardio: Rate: regular rate Rhythm: regular rhythm Heart sounds: S1 normal heart sound present, S2 normal heart sound present and no murmurs GI: Inspection: Yes normal to inspection Palpation (GI): Soft to palpation, nontender and no guarding Auscultation: normal bowel sounds : General: Yes no CVA tenderness Back/Spine/Pelvis: Back: no CVA tenderness Skin: General skin exam: no rashes or lesions noted Neuro: General: oriented to person and oriented to place Cranial nerves: Yes CN's II-XII intact bilaterally and Yes Equal, round and reactive pupils present Cognition (Neuro): normal cognition Motor exam (neuro): 5/5 motor strength present throughout Extrem: Other: Superficial abrasions to both forearms Psych: Appearance: grossly normal Speech and movement: Normal speech and movement present Affect: normal affect Attitude: cooperative Thought process: Normal thought process present Thought content: Suicidality present Course Course Course Narrative: 46-year-old female who presents emergency department for evaluation of suicidal ideation and self-harm. The patient states she has been having auditory hallucinations that have been telling her to harm herself. The patient is well-known to the emergency department has been seen here multiple times and does have a care plan. The patient was seen by the care team and discharged back to her program. MDM - Psych Lab Data Labs: Lab Results 06/15/22 06/15/22 06/15/22 Range/Units 20:01 20:02 20:02 Urine Color Yellow Urine Appearance Clear Urine pH 6.0 (5.0-9.0) Ur Specific [place] <= 1.005 (1.005-1.025) Urine Protein Negative (Neg-Trace) mg/dL Urine Glucose (UA) Negative (Negative) mg/dL Urine Ketones Negative (Negative) mg/dL Urine Blood Negative (Negative) Urine Nitrite Negative (Negative) Ur Leukocyte Esterase Negative (Negative) Urine Opiates Screen Not Detected (Not Detect) Urine Fentanyl Screen Not Detected (Not Detect) Ur Barbiturates Screen Not Detected (Not Detect) Ur Phencyclidine Scrn Not Detected (Not Detect) Ur Amphetamines Screen Not Detected (Not Detect) U Benzodiazepines Scrn Not Detected (Not Detect) Urine Cocaine Screen Not Detected (Not Detect) U Marijuana (THC) Screen Not Detected (Not Detect) COVID-19 (NICK) Negative (Negative) COVID-19 Clin Com See Note Discharge Plan Discharge Clinical Impression: Bipolar disorder, Suicidal ideation Patient Disposition: Home, Self-Care Additional Instructions: Continue taking medications as per your providers. Follow-up with your doctor in 2 days. Please return to the emergency department if your symptoms get worse or if you develop any symptoms that are concerning to you. Prescriptions: No Action metformin 500 mg tablet 1 tab PO BID atorvastatin 10 mg tablet 1 tab PO DAILY verapamil 240 mg tablet extended release 240 mg PO BEDTIME montelukast 10 mg tablet 1 tab PO BEDTIME fluticasone propionate [Flovent HFA] 110 mcg/actuation HFA aerosol inhaler 2 puff inhalation BID albuterol sulfate [Ventolin HFA] 90 mcg/actuation HFA aerosol inhaler 2 puff inhalation Q4H PRN (Reason: Shortness Of Breath) trazodone 150 mg tablet 150 mg PO BEDTIME PRN (Reason: insomnia) benztropine 1 mg tablet 1 mg PO DAILY naproxen 500 mg tablet 1 tab PO BID docusate sodium [Colace] 100 mg capsule 100 mg PO BID Qty: 60 0RF fluoxetine 20 mg Capsule 40 mg PO DAILY 30 Days Qty: 60 0RF prazosin 1 mg Capsule 4 mg PO BEDTIME 30 Days Qty: 120 0RF Protocol: Hold for SBP< HOLD for SBP < : 90 mirtazapine 7.5 mg Tablet 7.5 mg PO BEDTIME MRX1 30 Days Qty: 60 0RF lisinopril 5 mg tablet 1 tab PO DAILY ondansetron 4 mg tablet,disintegrating 4 mg PO Q6-8H PRN (Reason: nausea and vomiting) Qty: 14 0RF fluphenazine HCl 2.5 mg tablet 1 tab PO BEDTIME fluphenazine HCl 5 mg tablet 1 tab PO BEDTIME Interventions: ED Discharge Assessment Last Done: 06/15/22 21:25 Discharge Date/Time: 06/15/22 21:32
== END 2022-06-15 21:32 | disposition home or self-care (01) ==
PROVIDERS: Emergency Provider Emergency Medicine Emergency Medical Services; PCP Nurse Practitioner Family
DX: F31.9 Bipolar disorder, unspecified (principal); R45.851 Suicidal ideations; R44.0 Auditory hallucinations; S50.812A Abrasion of left forearm, initial encounter; S50.811A Abrasion of right forearm, initial encounter; X83.8XXA Intentional self-harm by other specified means, initial encounter; Z20.822 Contact with and (suspected) exposure to COVID-19; F43.10 Post-traumatic stress disorder, unspecified; F60.3 Borderline personality disorder; E11.9 Type 2 diabetes mellitus without complications; E78.5 Hyperlipidemia, unspecified; F17.210 Nicotine dependence, cigarettes, uncomplicated; F12.90 Cannabis use, unspecified, uncomplicated; Z91.51 Personal history of suicidal behavior; Z79.84 Long term (current) use of oral hypoglycemic drugs; Z79.899 Other long term (current) drug therapy; Z79.02 Long term (current) use of antithrombotics/antiplatelets; Y93.89 Activity, other specified; Y92.049 Unspecified place in boarding-house as the place of occurrence of the external cause; Y99.9 Unspecified external cause status
CPT/HCPCS: 80307; 81003; 87635; 99282; 99283

== ENCOUNTER 2022-06-17 15:56 | Emergency (ER) | payer MEDICARE, MEDICAID, SELFPAY ==
[2022-06-17 15:39] VITALS: BP 130/65; PULSE 100; O2SAT 96
--- NOTE | 2022-06-17 15:40 | ED.PSYCH ---
HPI - Psych General Chief Complaint: Psychiatric Symptoms Stated Complaint: SI W/ PLAN Time Seen by Provider: 06/17/22 16:43 Source: patient and EMS Mode of arrival: EMS Limitations: no limitations History of Present Illness HPI Narrative: 46-year-old female with past medical history of borderline personality disorder, depression, anxiety, bipolar 2 with melancholic features, PTSD, DM, GERD? presents today Via EMS with complaints of suicidal ideation with plan to overdose. Patient tells me that she has been hearing voices telling her to kill herself, patient tells me she went to the [facility], she felt a little bit better and then she started feeling suicidal again therefore she called 911. She reports she is hearing male voices and she tells me she does not want to kill herself and that is why she is here today. Denies drugs, alcohol and tobacco. Denies tactile hallucinations. Denies homicidal ideation. Reports taking all her medications as prescribed. Denies medical complaints at this time. Related Data Home Medications Medication Instructions Recorded Confirmed atorvastatin 10 mg tablet 1 tab PO DAILY 05/29/21 06/17/22 fluticasone propionate 110 2 puff inhalation BID 05/29/21 06/17/22 mcg/actuation HFA aerosol inhaler (Flovent HFA) metformin 500 mg tablet 1 tab PO BID 05/29/21 06/17/22 montelukast 10 mg tablet 1 tab PO BEDTIME 05/29/21 06/17/22 verapamil 240 mg tablet,extended 240 mg PO BEDTIME 05/29/21 06/17/22 release albuterol sulfate 90 mcg/actuation 2 puff inhalation Q4H PRN 06/15/21 06/17/22 aerosol inhaler (Ventolin HFA) Shortness Of Breath trazodone 150 mg tablet 150 mg PO BEDTIME 11/05/21 06/17/22 benztropine 1 mg tablet 1 mg PO DAILY 12/26/21 06/17/22 fluphenazine HCl 2.5 mg tablet 1 tab PO BEDTIME 03/19/22 06/17/22 fluphenazine HCl 5 mg tablet 1 tab PO BEDTIME 03/19/22 06/17/22 chlorpromazine 25 mg tablet 1 tab PO TID 06/17/22 06/17/22 hydroxyzine HCl 50 mg tablet 2 tab PO BID 06/17/22 06/17/22 Previous Rx's Medication Instructions Recorded fluoxetine 20 mg capsule 40 mg PO DAILY 30 days #60 caps 09/29/21 prazosin 1 mg capsule 4 mg PO BEDTIME 30 days #120 caps 10/18/21 ondansetron 4 mg disintegrating 4 mg PO Q6-8H PRN nausea and 02/04/22 tablet vomiting #14 tabs docusate sodium 100 mg capsule 100 mg PO BID Constipation #60 caps 02/07/22 (Colace) Allergies Allergy/AdvReac Type Severity Reaction Status Date / Time Fish Containing Products Allergy Severe ANAPHYLAXIS Verified 05/06/22 20:47 codeine [Codeine] Allergy Unknown RASH Verified 05/06/22 20:47 Penicillins Allergy Unknown RASH Verified 05/06/22 20:47 prednisone [Prednisone] Allergy Unknown RASH Verified 05/06/22 20:47 Sulfa (Sulfonamide Allergy Unknown RASH Verified 05/06/22 20:47 Antibiotics) [Sulfa (Sulfonamides)] azithromycin [AZITHROMYCIN] AdvReac Severe RASH Verified 05/06/22 20:47 ziprasidone [From Geodon] AdvReac Intermediate dysuria, Verified 05/06/22 20:47 rash Review of Systems Review of Systems: Constitutional : No Weight loss, No Fever, No Chills, No Fatigue, No Malaise ENT/Mouth : No sore throat, No Rhinorrhea Eyes: No Eye Pain, No Swelling, No Redness Cardiovascular : No Chest Pain, No SOB, No Dyspnea on Exertion, No Orthopnea, No Edema, No Palpitations Respiratory : No Cough, No Sputum, No Wheezing Gastrointestinal : No Nausea, No Vomiting, No Diarrhea, No Constipation, No abdominal Pain, No Hematochezia, No Melena Genitourinary : No Dysuria, No Urinary Frequency, No Hematuria, Musculoskeletal : No joint pain, No Myalgias, No Joint Swelling Skin : No Skin Lesions, No rash Neuro : No Weakness, No Numbness, No Dizziness, No Headache Psych : + Anxiety/Panic, No Depression, + SI, No HI All other systems reviewed and are negative Yes all other systems are reviewed and are negative [facility] Past Medical History Attestation statement: The following information was validated with the patient. Source: old records reviewed and nursing notes reviewed Medical History Acetaminophen overdose Borderline personality disorder Bronchitis Depression Diabetes type 2, controlled GERD (gastroesophageal reflux disease) History of attempted suicide History of non-suicidal self-harm Hyperlipidemia Hypomagnesemia Major depression MDD (major depressive disorder), recurrent episode, severe Mood disorder Overdose PTSD (post-traumatic stress disorder) Suicide attempt Suicide attempt by acetaminophen overdose Social History Social History Household Members: None Household Members Other:: Patient lives in halfway. 4 in total live in halfway. Housing: Other Housing Other:: halfway Do you presently have visiting nurse or other home services: No Unable to assess alcohol history related to: Unknown Alcohol intake: never Patient Tobacco Use Status: Current everyday Tobacco user Tobacco use type: Cigarette Cigarette Packs Per Day: 1 Cigarettes Per Day: 20 Years Smoked: 20 e-Cigarette/Vaping Use: Never Used Substance Use Type: Marijuana Advance Directives: No Advance Directives Information Provided: No Patient : No service: No Current occupational status: disabled Sexual orientation: Don't Know Physical Exam Vital Signs: Vital Signs: Last Vital Signs Temp 98.4 F 06/17/22 15:59 Pulse 84 06/17/22 15:59 Resp 12 06/17/22 15:59 BP 135/71 06/17/22 15:59 Pulse Ox 96 06/17/22 15:59 O2 Del Method 06/17/22 15:59 BMI result Body Mass Index 40.3 Vital signs stable Appearance: Alert.? Oriented X3.? No acute distress.? Head: Normocephalic, atraumatic, no step-offs or deformities Eyes: Pupils equal, round and reactive to light.? ENT: Pharynx normal.? Neck: Normal inspection.? Neck supple.? CVS: Normal heart rate and rhythm.? Pulses normal.? Respiratory: No respiratory distress.? Breath sounds normal.? Abdomen: Soft and nontender.? Skin: Skin warm and dry.? Normal skin color.? Normal skin turgor.? Old healing self-inflicted wounds to abdomen, bilateral upper extremities. Extremities: No lower extremity edema.? No calf ttp. 5/5 strength to bilateral upper and lower extremities Back: No midline tenderness, no C-spine tenderness, full range of motion, no CVA tenderness bilaterally Neuro: Oriented X 3.? No motor deficit.? No sensory deficit. CN 2-12 intact Course Reevaluation(s) Reevaluation #1: Went to re-evaluate patient, she tells me she is feeling much better, she tells me that after taking a few deep breaths and being able to calmed down she realized that today she had a panic attack, she tells me 1 of her close friends is in the hospital. She also tells me that she was unable to get her p.r.n. medication from her halfway, I offered her her medications here however she tells me she is feeling much better. Denies SI, HI. Denying visual, auditory and tactile hallucinations. Patient tells me she is feeling much better. She also spoke to the care team Jeffrey, who agrees with diagnosis and treatment plan feels as though patient can go back to halfway. Patient excited to go back to the halfway, no medical complaints at this time. Time: 16:56 Reevaluation #2: Patient difficult stick, refusing lab work, I could also not get labs on this patient due to her being a tough stick. She tells me she is refusing lab work because she does not have any medical complaints. At this time I feel comfortable with discharge without labs. Comfortable discharge home Time: 17:24 MDM - Psych MDM Narrative Medical decision making narrative: [id number] 46 year old female presents to the emergency department with anxiety, depression, VH, AH, suicidal thoughts w/o intent X1 day. PE w/ healed self inflicted wounds to b/l forearms. Plan at this time is to medically clear the patient for evaluation by Behavioral Health Team. Medical Records Attestation: I reviewed the patient's medical records. Lab Data Attestation: I reviewed the patient's lab results. Labs: Lab Results 06/17/22 Range/Units 16:13 Urine Color Yellow Urine Appearance Clear Urine pH 6.0 (5.0-9.0) Ur Specific [place] <= 1.005 (1.005-1.025) Urine Protein Negative (Neg-Trace) mg/dL Urine Glucose (UA) Negative (Negative) mg/dL Urine Ketones Negative (Negative) mg/dL Urine Blood Negative (Negative) Urine Nitrite Negative (Negative) Ur Leukocyte Esterase Trace H (Negative) Urine RBC 0-2 (0-2) /HPF Urine WBC 0-5 (0-5) /HPF Ur Squamous Epith Cells 0-2 (0-2) /HPF Urine Bacteria None Seen (None Seen) Hyaline Casts 0-2 (0-2) /LPF Critical Care Time Critical Care Time Critical Care Time: No Discharge Plan Discharge Clinical Impression: Acute anxiety, Depression, Suicidal ideation Patient Disposition: Home, Self-Care Instructions: Depression (ED), Panic Disorder (ED), Help Prevent Suicide (ED), Help Prevent Suicide in Older Adults (ED), Anxiety (ED), Suicide Prevention (ED) Additional Instructions: Take your medications as prescribed. If you were prescribed antibiotics today, it is important that you take your medication to their entirety, do not skip any doses, do not finish them early. Follow-up with your primary care provider this week. Return to the emergency department with new or worsening symptoms. Such as fevers, chills, chest pain, shortness of breath, nausea, vomiting, dizziness, headache, vision changes, lethargy In case of emergency call 911 Prescriptions: No Action metformin 500 mg tablet 1 tab PO BID atorvastatin 10 mg tablet 1 tab PO DAILY verapamil 240 mg tablet extended release 240 mg PO BEDTIME montelukast 10 mg tablet 1 tab PO BEDTIME fluticasone propionate [Flovent HFA] 110 mcg/actuation HFA aerosol inhaler 2 puff inhalation BID albuterol sulfate [Ventolin HFA] 90 mcg/actuation HFA aerosol inhaler 2 puff inhalation Q4H PRN (Reason: Shortness Of Breath) trazodone 150 mg tablet 150 mg PO BEDTIME benztropine 1 mg tablet 1 mg PO DAILY docusate sodium [Colace] 100 mg capsule 100 mg PO BID Qty: 60 0RF hydroxyzine HCl 50 mg tablet 2 tab PO BID chlorpromazine 25 mg tablet 1 tab PO TID fluoxetine 20 mg Capsule 40 mg PO DAILY 30 Days Qty: 60 0RF prazosin 1 mg Capsule 4 mg PO BEDTIME 30 Days Qty: 120 0RF Protocol: Hold for SBP< HOLD for SBP < : 90 ondansetron 4 mg tablet,disintegrating 4 mg PO Q6-8H PRN (Reason: nausea and vomiting) Qty: 14 0RF fluphenazine HCl 2.5 mg tablet 1 tab PO BEDTIME fluphenazine HCl 5 mg tablet 1 tab PO BEDTIME Referrals: Physician,Unknown J [Primary Care Provider] - 2 days
[2022-06-17 15:59] VITALS: BP 135/71; PULSE 84; RESP 12; TEMP 36.9; O2SAT 96; BMI 40.3
--- NOTE | 2022-06-17 16:28 | PHA.MEDREC ---
Pharmacy Consult ? Medication Reconciliation Pharmacy has completed the medication reconciliation. Patient unsure of name of medications. Claim history has recently fills expcet for mirtazepine and lisniopril Patient reports she is out of mirtazepine. Patient does not recgonized lisinopril just reports she is on BP medication, last filled in March 2022 for 7 days supply therefore removed from list. Mady Anthony, PharmD
[2022-06-17 16:40] LABS: Appearance Urine Clear; Color Urine Yellow; Glucose Urine UA Negative (Negative); Leukocyte Esterase Urine Trace (Negative); Nitrite Urine Negative (Negative); Specific Gravity - Urine <= 1.005 (1.005-1.025); Urine Blood Negative (Negative); Urine Ketones Negative (Negative); Urine Protein Negative (Neg-Trace)
[2022-06-17 16:43] LABS: Bacteria Urine None Seen (None Seen); Hyaline Casts Urine 0-2 /LPF (0-2); RBC Urine 0-2 /HPF (0-2); Squamous Epithelial Cell Urine 0-2 /HPF (0-2); WBC Urine 0-5 /HPF (0-5)
--- NOTE | 2022-06-17 17:20 | MHC.CARE ---
Pt?s Care Plan was reviewed. Today, pt was transported to this facility from the community via ambulance with a complaint of command auditory hallucinations, depression, and suicidal ideation. Pt attributes these sx to not getting her hydroxyzine this morning (on duty staff member at [facility] was not med certified) and a friend not doing well.? Pt has been medically cleared and is being assessed by the CARE Team to determine risk. Pt has an extensive hx of inpt hospitalizations, and is known to engage in unsafe behavior when decompensated. Past documented hx of major depressive d/o, PTSD, and Borderline personality d/o. Pt has a hx of self-harm and suicide attempts. Pt is alert and oriented x4 and is assessed for risk by the CARE Team in her room in the Main ED.? Pt is neat in appearance and appears older than her stated age.? She denies SI, , HI and self-harm urges.? She stated she was experiencing spikes in command AH throughout the day to ?worry? over her friend going to the hospital.? She stated that she feels the voices are manageable, able to ?Talk them down?.? Pt stated that she feels that she is able to be safe.? She reports that earlier today the voices were telling her to go to the store to buy Tylenol.? She reports that the voices are no longer present and her plan is to give her money to [facility] staff to hold so she cannot go to the store to buy Tylenol. She states her sleep and appetite and sleep have been ?good?.? She reports her mood as ?good?.? Pt demonstrates a wide range of affect, smiling broadly as she told CARE Team about her new love interest.? ?Insight, judgement, memory, and concentration are fair and appear to be at her baseline.? Pt appears to be at her baseline at this time. The plan is for pt to be [facility] to the [facility].? CARE Team will secure transportation.? Pt will receive a follow up call to check on her progress tomorrow afternoon. This disposition was discussed with and agreed upon by healthcare applications analyst clinician Jose Alejandro MILLER and ED Provider Layne Loyd. [facility]?s [facility] was notified.
[2022-06-17 18:03] LABS: MANUAL DIFF FLAG NO
[2022-06-17 18:05] LABS: Basophils Percent Auto 0.4 % (0-2); Eosinophils Absolute Auto 0.3 X10*3/uL (0.0-0.4); Eosinophils Percent Auto 2.9 % (0-4); Hematocrit 32.8 % (37.0-47.0); Hemoglobin 10.6 g/dl (12.0-16.0); Imm Gran Abs Auto 0.04 X10*3/uL (0.00-0.03); Imm Gran Pct Auto 0.4 % (0.0-0.4); Lymphocytes Absolute Auto 1.9 X10*3/uL (1.2-4.9); Lymphocytes Percent Auto 21.5 % (20-40); Mean Corpuscular HGB Conc 32.3 g/dl (31.0-35.0); Mean Corpuscular Hemoglobin 28.3 pg (27.0-33.0); Mean Corpuscular Volume 87.5 fL (80.0-98.0); Mean Platelet Volume 9.8 fL (9.4-12.3); Monocytes Absolute Auto 0.7 X10*3/uL (0.1-1.2); Monocytes Percent Auto 7.8 % (2-11); Platelet Count 259 X10*3/uL (160-400); Red Blood Count 3.75 X10*6/uL (4.20-5.50); Red Cell Distribution Width 13.2 % (11.0-16.0)
[2022-06-17 18:18] LABS: Ethanol < 10 mg/dL
[2022-06-17 18:20] LABS: Acetaminophen LAB < 1 mcg/mL (<30); COVID-19 Test Negative (Negative); Salicylate < 5.0 mg/dL (15-30)
[2022-06-17 18:22] LABS: Alanine Aminotransferase 13 U/L (0-31); Albumin Level 4.3 g/dL (3.5-5.0); Alkaline Phosphatase 107 U/L (39-117); Anion Gap 16 (12-20); Aspartate Amino Transferase 13 U/L (5-31); Bilirubin Total 0.2 mg/dL (0.0-1.0); Blood Urea Nitrogen 11 mg/dL (9-16); Carbon Dioxide 24 mmol/L (22-29); Chloride 102 mmol/L (96-108); Creatinine Clr Calc Pharmacy 119.1; Estimated Glomerular Filt Rate > 60; Glucose Random 113 mg/dL (60-115); Magnesium 1.7 mg/dL (1.6-2.6); Potassium 3.7 mmol/L (3.3-5.1); Sodium 138 mmol/L (135-145)
[2022-06-17 19:03] LABS: Amphetamine Screen Urine Not Detected (Not Detect); Barbiturates, Urine Not Detected (Not Detect); Benzodiazepines Screen Urine Not Detected (Not Detect); Cannabinoid Screen Urine Not Detected (Not Detect); Cocaine Screen Urine Not Detected (Not Detect); Fentanyl, urine Not Detected (Not Detect); Opiate Screen Urine Not Detected (Not Detect); Phencyclidine Screen Urine Not Detected (Not Detect)
--- NOTE | 2022-06-18 14:25 | MHC.CARE ---
Spoke with pt for a follow up call to her visit yesterday.? She reports feeling good at the moment and that she is experiencing AH.? She stated the AH is manageable but expressed concerns that her voices will intensify later this evening as they usually do and requested a call later today after 6:00PM. CARE Team and pt discussed interventions that could happen prior to her calling EMS and being transported to the hospital.? Pt stated that she will employ those interventions this evening should her Ah intensify.
== END 2022-06-17 18:40 | disposition home or self-care (01) ==
PROVIDERS: Physician Assistant; Emergency Provider Emergency Medicine
DX: F31.81 Bipolar II disorder (principal); F41.9 Anxiety disorder, unspecified; R45.851 Suicidal ideations; R44.0 Auditory hallucinations; Z20.822 Contact with and (suspected) exposure to COVID-19; F60.3 Borderline personality disorder; F43.10 Post-traumatic stress disorder, unspecified; E11.9 Type 2 diabetes mellitus without complications; E78.5 Hyperlipidemia, unspecified; F17.210 Nicotine dependence, cigarettes, uncomplicated; Z91.51 Personal history of suicidal behavior; Z79.02 Long term (current) use of antithrombotics/antiplatelets; Z79.84 Long term (current) use of oral hypoglycemic drugs; Z79.899 Other long term (current) drug therapy
CPT/HCPCS: 36415; 80053; 80143; 80179; 80307; 81001; 82077; 83735; 85025; 87635; 99284; 99285

== ENCOUNTER 2022-06-19 18:45 | Emergency (ER) | payer MEDICARE, MEDICAID, SELFPAY ==
--- NOTE | 2022-06-19 18:50 | ED.PSYCH ---
HPI - Psych General Chief Complaint: Psychiatric Symptoms Stated Complaint: SI, Crisis Time Seen by Provider: 06/19/22 18:49 Source: patient Mode of arrival: ambulatory Limitations: no limitations History of Present Illness HPI Narrative: 46-year-old female with past medical history of borderline personality disorder, depression, anxiety, bipolar 2 with melancholic features, PTSD, DM, GERD? presents today Via EMS with complaints of auditory hallucinations that are telling her to harm herself X1 day. Patient tells me that she is hearing voices and telling her to harm herself in jump in front of the vehicle. She tells me she usually hears voices however they have never told her to jump in front of a car. Patient tells me she went to the [facility] to speak to them and to the living room, she says they got better but after she left it got worse. Patient refused vitals from EMS. She is telling me she is not feeling suicidal however voices are telling her to harm herself. She denies homicidal ideation. Denies drugs, alcohol and tobacco. Reports taking all medications as prescribed. Denies medical complaints. To note, patient is coming from a assisted and tells me that she did not have any activities today as it is a holiday and she feels like this could of had caused her to have these hallucinations. complaint: hallucinations Onset (ago): day(s) (1) Related Data Home Medications Medication Instructions Recorded Confirmed atorvastatin 10 mg tablet 1 tab PO DAILY 05/29/21 06/17/22 fluticasone propionate 110 2 puff inhalation BID 05/29/21 06/17/22 mcg/actuation HFA aerosol inhaler (Flovent HFA) metformin 500 mg tablet 1 tab PO BID 05/29/21 06/17/22 montelukast 10 mg tablet 1 tab PO BEDTIME 05/29/21 06/17/22 verapamil 240 mg tablet,extended 240 mg PO BEDTIME 05/29/21 06/17/22 release albuterol sulfate 90 mcg/actuation 2 puff inhalation Q4H PRN 06/15/21 06/17/22 aerosol inhaler (Ventolin HFA) Shortness Of Breath trazodone 150 mg tablet 150 mg PO BEDTIME 11/05/21 06/17/22 benztropine 1 mg tablet 1 mg PO DAILY 12/26/21 06/17/22 fluphenazine HCl 2.5 mg tablet 1 tab PO BEDTIME 03/19/22 06/17/22 fluphenazine HCl 5 mg tablet 1 tab PO BEDTIME 03/19/22 06/17/22 chlorpromazine 25 mg tablet 1 tab PO TID 06/17/22 06/17/22 hydroxyzine HCl 50 mg tablet 2 tab PO BID 06/17/22 06/17/22 Previous Rx's Medication Instructions Recorded fluoxetine 20 mg capsule 40 mg PO DAILY 30 days #60 caps 09/29/21 prazosin 1 mg capsule 4 mg PO BEDTIME 30 days #120 caps 10/18/21 ondansetron 4 mg disintegrating 4 mg PO Q6-8H PRN nausea and 02/04/22 tablet vomiting #14 tabs docusate sodium 100 mg capsule 100 mg PO BID Constipation #60 caps 02/07/22 (Colace) Allergies Allergy/AdvReac Type Severity Reaction Status Date / Time Fish Containing Products Allergy Severe ANAPHYLAXIS Verified 05/06/22 20:47 codeine [Codeine] Allergy Unknown RASH Verified 05/06/22 20:47 Penicillins Allergy Unknown RASH Verified 05/06/22 20:47 prednisone [Prednisone] Allergy Unknown RASH Verified 05/06/22 20:47 Sulfa (Sulfonamide Allergy Unknown RASH Verified 05/06/22 20:47 Antibiotics) [Sulfa (Sulfonamides)] azithromycin [AZITHROMYCIN] AdvReac Severe RASH Verified 05/06/22 20:47 ziprasidone [From Geodon] AdvReac Intermediate dysuria, Verified 05/06/22 20:47 rash Review of Systems Review of Systems: Constitutional : No Weight loss, No Fever, No Chills, No Fatigue, No Malaise ENT/Mouth : No sore throat, No Rhinorrhea Eyes: No Eye Pain, No Swelling, No Redness Cardiovascular : No Chest Pain, No SOB, No Dyspnea on Exertion, No Orthopnea, No Edema, No Palpitations Respiratory : No Cough, No Sputum, No Wheezing Gastrointestinal : No Nausea, No Vomiting, No Diarrhea, No Constipation, No abdominal Pain, No Hematochezia, No Melena Genitourinary : No Dysuria, No Urinary Frequency, No Hematuria, Musculoskeletal : No joint pain, No Myalgias, No Joint Swelling Skin : No Skin Lesions, No rash Neuro : No Weakness, No Numbness, No Dizziness, No Headache Psych : + Anxiety/Panic, No Depression, + VH, AH, No TH, No SI, No HI Yes all other systems are reviewed and are negative [facility] Past Medical History Attestation statement: The following information was validated with the patient. Source: old records reviewed and nursing notes reviewed Medical History Acetaminophen overdose Borderline personality disorder Bronchitis Depression Diabetes type 2, controlled GERD (gastroesophageal reflux disease) History of attempted suicide History of non-suicidal self-harm Hyperlipidemia Hypomagnesemia Major depression MDD (major depressive disorder), recurrent episode, severe Mood disorder Overdose PTSD (post-traumatic stress disorder) Suicide attempt Suicide attempt by acetaminophen overdose Social History Social History Household Members: None Household Members Other:: Patient lives in assisted. 4 in total live in assisted. Housing: Other Housing Other:: assisted Do you presently have visiting nurse or other home services: No Unable to assess alcohol history related to: Unknown Alcohol intake: never Patient Tobacco Use Status: Current everyday Tobacco user Tobacco use type: Cigarette Cigarette Packs Per Day: 1 Cigarettes Per Day: 20 Years Smoked: 20 e-Cigarette/Vaping Use: Never Used Substance Use Type: Marijuana Advance Directives: No Advance Directives Information Provided: No service: No Current occupational status: disabled Sexual orientation: Don't Know Physical Exam Vital Signs: Vital Signs: BMI result Body Mass Index 35.4 vss Head:? Normocephalic, atraumatic, no step-offs or deformities Eyes: Pupils equal, round and reactive to light.? ENT: Pharynx normal.? Neck: Normal inspection.? Neck supple.? CVS: Normal heart rate and rhythm.? Pulses normal.? Respiratory: No respiratory distress.? Breath sounds normal.? Abdomen: Soft and nontender.? Skin: Skin warm and dry.? Normal skin color.? Normal skin turgor.? Old healing self-inflicted wounds to abdomen, bilateral upper extremities. Extremities: No lower extremity edema.? No calf ttp.? 5/5 strength to bilateral upper and lower extremities Back:? No midline tenderness, no C-spine tenderness, full range of motion, no CVA tenderness bilaterally Neuro: Oriented X 3.? No motor deficit.? No sensory deficit. CN 2-12 intact Course Reevaluation(s) Reevaluation #1: CBC appears to be around patient's baseline. Chemistry with no acute electrolyte abnormalities requiring intervention. Salicylates, acetaminophen and ethanol negative. Covid negative. Urine and urine toxicology pending. At this time patient will be placed into physician observation to allow more time to be evaluated by the care team. At time observation was started patient, cooperative no acute distress. Will continue to monitor. No medical complaints. Time: 22:18 MDM - Psych MDM Narrative Medical decision making narrative: 185 46 year old female presents to the emergency department with command auditory hallucinations x1 day. PE w/ healed self inflicted wounds to b/l forearms. Plan at this time is to obtain a urine and COVID test and for patient for evaluation by Behavioral Health Team. Medical Records Attestation: I reviewed the patient's medical records. Lab Data Attestation: I reviewed the patient's lab results. Result diagrams: 06/19/22 21:02 06/19/22 21:02 Labs: Lab Results 06/19/22 06/19/22 06/19/22 Range/Units 21:02 21:02 21:02 WBC 8.3 (4.8-10.8) X10*3/uL RBC 3.65 L (4.20-5.50) X10*6/uL Hgb 10.6 L (12.0-16.0) g/dl Hct 32.3 L (37.0-47.0) % MCV 88.5 (80.0-98.0) fL MCH 29.0 (27.0-33.0) pg MCHC 32.8 (31.0-35.0) g/dl RDW 13.1 (11.0-16.0) % Plt Count 239 (160-400) X10*3/uL MPV 9.7 (9.4-12.3) fL Immature Gran % (Auto) 0.6 H (0.0-0.4) % Neut % (Auto) 63.8 (45-73) % Lymph % (Auto) 24.0 (20-40) % [place] % (Auto) 8.1 (2-11) % Eos % (Auto) 3.1 (0-4) % Baso % (Auto) 0.4 (0-2) % Lymph # (Auto) 2.0 (1.2-4.9) X10*3/uL [place] # (Auto) 0.7 (0.1-1.2) X10*3/uL Eos # (Auto) 0.3 (0.0-0.4) X10*3/uL Baso # (Auto) 0.0 (0.0-0.2) X10*3/uL Abs Immat Gran (auto) 0.05 H (0.00-0.03) X10*3/uL Absolute Neuts (auto) 5.3 (2.0-8.3) x10*3/uL Absolute Nucleated RBC 0.000 (0.0-0.012) X10*3/uL Nucleated RBC % (auto) 0.0 (0.0-0.2) /100WBC Sodium 140 (135-145) mmol/L Potassium 3.8 (3.3-5.1) mmol/L Chloride 105 (96-108) mmol/L Carbon Dioxide 25 (22-29) mmol/L Anion Gap 14 (12-20) BUN 9 (9-16) mg/dL Creatinine 0.77 (0.5-1.4) mg/dL Estim Creat Clear Calc 104.4 Estimated GFR > 60 Random Glucose 115 (60-115) mg/dL Calcium 8.7 (8.4-10.2) mg/dL Total Bilirubin < 0.2 (0.0-1.0) mg/dL AST 13 (5-31) U/L ALT 12 (0-31) U/L Alkaline Phosphatase 110 (39-117) U/L Total Protein 6.7 (6.5-8.0) g/dL Albumin 4.1 (3.5-5.0) g/dL Salicylates < 5.0 L (15-30) mg/dL Acetaminophen < 1 (<30) mcg/mL Ethyl Alcohol mg/dL COVID-19 (NICK) Negative (Negative) COVID-19 Clin Com See Note 06/19/22 Range/Units 21:02 WBC (4.8-10.8) X10*3/uL RBC (4.20-5.50) X10*6/uL Hgb (12.0-16.0) g/dl Hct (37.0-47.0) % MCV (80.0-98.0) fL MCH (27.0-33.0) pg MCHC (31.0-35.0) g/dl RDW (11.0-16.0) % Plt Count (160-400) X10*3/uL MPV (9.4-12.3) fL Immature Gran % (Auto) (0.0-0.4) % Neut % (Auto) (45-73) % Lymph % (Auto) (20-40) % [place] % (Auto) (2-11) % Eos % (Auto) (0-4) % Baso % (Auto) (0-2) % Lymph # (Auto) (1.2-4.9) X10*3/uL [place] # (Auto) (0.1-1.2) X10*3/uL Eos # (Auto) (0.0-0.4) X10*3/uL Baso # (Auto) (0.0-0.2) X10*3/uL Abs Immat Gran (auto) (0.00-0.03) X10*3/uL Absolute Neuts (auto) (2.0-8.3) x10*3/uL Absolute Nucleated RBC (0.0-0.012) X10*3/uL Nucleated RBC % (auto) (0.0-0.2) /100WBC Sodium (135-145) mmol/L Potassium (3.3-5.1) mmol/L Chloride (96-108) mmol/L Carbon Dioxide (22-29) mmol/L Anion Gap (12-20) BUN (9-16) mg/dL Creatinine (0.5-1.4) mg/dL Estim Creat Clear Calc Estimated GFR Random Glucose (60-115) mg/dL Calcium (8.4-10.2) mg/dL Total Bilirubin (0.0-1.0) mg/dL AST (5-31) U/L ALT (0-31) U/L Alkaline Phosphatase (39-117) U/L Total Protein (6.5-8.0) g/dL Albumin (3.5-5.0) g/dL Salicylates (15-30) mg/dL Acetaminophen (<30) mcg/mL Ethyl Alcohol < 10 mg/dL COVID-19 (NICK) (Negative) COVID-19 Clin Com Critical Care Time Critical Care Time Critical Care Time: No Discharge Plan Discharge Clinical Impression: Auditory hallucination, Acute anxiety Patient Disposition: Still a Patient Instructions: Hallucinations (ED) Additional Instructions: Take your medications as prescribed. If you were prescribed antibiotics today, it is important that you take your medication to their entirety, do not skip any doses, do not finish them early. Follow-up with your primary care provider this week. Return to the emergency department with new or worsening symptoms. Such as fevers, chills, chest pain, shortness of breath, nausea, vomiting, dizziness, headache, vision changes, lethargy In case of emergency call 911 Prescriptions: No Action metformin 500 mg tablet 1 tab PO BID atorvastatin 10 mg tablet 1 tab PO DAILY verapamil 240 mg tablet extended release 240 mg PO BEDTIME montelukast 10 mg tablet 1 tab PO BEDTIME fluticasone propionate [Flovent HFA] 110 mcg/actuation HFA aerosol inhaler 2 puff inhalation BID albuterol sulfate [Ventolin HFA] 90 mcg/actuation HFA aerosol inhaler 2 puff inhalation Q4H PRN (Reason: Shortness Of Breath) trazodone 150 mg tablet 150 mg PO BEDTIME benztropine 1 mg tablet 1 mg PO DAILY docusate sodium [Colace] 100 mg capsule 100 mg PO BID Qty: 60 0RF hydroxyzine HCl 50 mg tablet 2 tab PO BID chlorpromazine 25 mg tablet 1 tab PO TID fluoxetine 20 mg Capsule 40 mg PO DAILY 30 Days Qty: 60 0RF prazosin 1 mg Capsule 4 mg PO BEDTIME 30 Days Qty: 120 0RF Protocol: Hold for SBP< HOLD for SBP < : 90 ondansetron 4 mg tablet,disintegrating 4 mg PO Q6-8H PRN (Reason: nausea and vomiting) Qty: 14 0RF fluphenazine HCl 2.5 mg tablet 1 tab PO BEDTIME fluphenazine HCl 5 mg tablet 1 tab PO BEDTIME [facility]Provider [facility] - 1 day Physician,Unknown J [Primary Care Provider] - 2 days
[2022-06-19 20:25] VITALS: BMI 35.4
[2022-06-19 21:11] LABS: MANUAL DIFF FLAG NO
[2022-06-19 21:12] LABS: Basophils Percent Auto 0.4 % (0-2); Eosinophils Absolute Auto 0.3 X10*3/uL (0.0-0.4); Eosinophils Percent Auto 3.1 % (0-4); Hematocrit 32.3 % (37.0-47.0); Hemoglobin 10.6 g/dl (12.0-16.0); Imm Gran Abs Auto 0.05 X10*3/uL (0.00-0.03); Imm Gran Pct Auto 0.6 % (0.0-0.4); Mean Corpuscular HGB Conc 32.8 g/dl (31.0-35.0); Mean Corpuscular Volume 88.5 fL (80.0-98.0); Mean Platelet Volume 9.7 fL (9.4-12.3); Monocytes Absolute Auto 0.7 X10*3/uL (0.1-1.2); Monocytes Percent Auto 8.1 % (2-11); Neutrophils Absolute Auto 5.3 x10*3/uL (2.0-8.3); Neutrophils Percent Auto 63.8 % (45-73); Platelet Count 239 X10*3/uL (160-400); Red Blood Count 3.65 X10*6/uL (4.20-5.50); Red Cell Distribution Width 13.1 % (11.0-16.0); White Blood Count 8.3 X10*3/uL (4.8-10.8)
[2022-06-19 21:27] LABS: COVID-19 Test Negative (Negative)
[2022-06-19 21:29] LABS: Ethanol < 10 mg/dL
[2022-06-19 21:39] LABS: Acetaminophen LAB < 1 mcg/mL (<30); Alanine Aminotransferase 12 U/L (0-31); Albumin Level 4.1 g/dL (3.5-5.0); Alkaline Phosphatase 110 U/L (39-117); Anion Gap 14 (12-20); Aspartate Amino Transferase 13 U/L (5-31); Bilirubin Total < 0.2 mg/dL (0.0-1.0); Blood Urea Nitrogen 9 mg/dL (9-16); Calcium 8.7 mg/dL (8.4-10.2); Carbon Dioxide 25 mmol/L (22-29); Chloride 105 mmol/L (96-108); Creatinine Clr Calc Pharmacy 104.4; Estimated Glomerular Filt Rate > 60; Glucose Random 115 mg/dL (60-115); Potassium 3.8 mmol/L (3.3-5.1); Salicylate < 5.0 mg/dL (15-30); Sodium 140 mmol/L (135-145); Total Protein 6.7 g/dL (6.5-8.0)
--- NOTE | 2022-06-19 22:12 | MHC.CARE ---
Pt is a 46 year old Cypriot speaking cisgender female that presented to [facility] due to CAH to jump in front of a car. Pt mentioned she was doing alright. Pt stated she visited [facility] living room when she began hearing the voices telling her to jump in front of a car. Pt mentioned she always hears voices and denied SI/HI/VH. Care Team will follow up with pt and her [facility] in the morning.
[2022-06-19] MEDS: hydrOXYzine HCL 25 MG TABLET PO (23:26)
[2022-06-19 23:55] VITALS: BP 106/56; PULSE 84; RESP 18; TEMP 36.7; O2SAT 97
[2022-06-20 01:39] VITALS: RESP 18
[2022-06-20 04:18] VITALS: BP 117/72; PULSE 74; RESP 18
[2022-06-20 07:05] LABS: Appearance Urine Clear; Color Urine Yellow; Glucose Urine UA Negative (Negative); Leukocyte Esterase Urine Trace (Negative); Nitrite Urine Negative (Negative); Urine Blood Negative (Negative); Urine Ketones Negative (Negative); Urine Protein Negative (Neg-Trace)
[2022-06-20 07:10] LABS: Bacteria Urine None Seen (None Seen); Hyaline Casts Urine 0-2 /LPF (0-2); RBC Urine 0-2 /HPF (0-2); Squamous Epithelial Cell Urine 0-2 /HPF (0-2); WBC Urine 0-5 /HPF (0-5)
[2022-06-20 07:18] LABS: Amphetamine Screen Urine Not Detected (Not Detect); Barbiturates, Urine Not Detected (Not Detect); Benzodiazepines Screen Urine Not Detected (Not Detect); Cannabinoid Screen Urine Not Detected (Not Detect); Cocaine Screen Urine Not Detected (Not Detect); Fentanyl, urine Not Detected (Not Detect); Opiate Screen Urine Not Detected (Not Detect); Phencyclidine Screen Urine Not Detected (Not Detect)
--- NOTE | 2022-06-20 08:00 | MHC.CARE ---
Pt?s Care Plan was reviewed. Yesterday, pt was transported to this facility from the community via ambulance with a complaint of command auditory hallucinations to jump in front of a moving vehicle. She reported that she was not feeling suicidal or had any thoughts of self-harm.? She did state that the voices were concerning because she never experienced voices telling her to jump in front of a moving vehicle.? Pt speculates that she is experiencing these sx as it is a holiday and there is no programming or other activities within or without the to keep her occupied.? She reports that she went to the behavioral health network to speak to them and then to the living room, she stated that the voices got better but after she left they worsened.? Pt has been medically cleared and is being assessed by the CARE Team to determine risk. Pt has an extensive hx of inpt hospitalizations, and is known to engage in unsafe behavior when decompensated. Past documented hx of major depressive d/o, PTSD, and Borderline personality d/o. Pt has a hx of self-harm and suicide attempts. Pt is alert and oriented x4 and is assessed for risk by the CARE Team in her room in the Main ED.? Pt is disheveled in appearance and appears older than her stated age.? She denies SI, , HI and self-harm urges.? She denies AVH at this time.? Pt stated that she feels that she is able to be safe.? She states her sleep and appetite and sleep have been ?good?.? She reports her mood as ?good?.? Insight, judgement, memory, and concentration are fair and appear to be at her baseline.? Pt appears to be at her baseline at this time. The plan is for pt to be discharged to the long-term.? CARE Team will secure transportation.? Pt will receive a follow up call to check on her progress this afternoon. This disposition was discussed with and agreed upon by ED Provider Dr. Larson. Pt advised that she has 5 remaining [place] for the month.? Wildlife Policy Professional Maximo Pittman was advised of this via email. Pt?s long-term was notified.
--- NOTE | 2022-06-20 16:29 | MHC.CARE ---
Follow up call to patient at her half-way. She stated that she has been struggling with command auditory hallucination and urges to self harm, said she needs to be on an inpatient psychiatric unit. She identified having group therapy as the reason an admission would be helpful, said she does not experience hearing voices in the morning, are worse at night. Patient said she was seen by Co-response twice today and also went to the Living Room. Feels she will be safe tonight at least until 8 when a helpful staff person leaves, did note several things that she is looking forward to in the next two days. Has day treatment on and Sun, therapy on Encouraged patient to journal and use distraction to get through these challenging portions of the evening and ask staff to help her make a plan for after 8:00.
== END 2022-06-20 09:00 | disposition home or self-care (01) ==
PROVIDERS: Physician Assistant; Emergency Provider Emergency Medicine
DX: R44.0 Auditory hallucinations (principal); F41.9 Anxiety disorder, unspecified; R45.851 Suicidal ideations; Z20.822 Contact with and (suspected) exposure to COVID-19; F60.3 Borderline personality disorder; F43.10 Post-traumatic stress disorder, unspecified; E11.9 Type 2 diabetes mellitus without complications; K21.9 Gastro-esophageal reflux disease without esophagitis; Z91.51 Personal history of suicidal behavior; F17.210 Nicotine dependence, cigarettes, uncomplicated; F12.90 Cannabis use, unspecified, uncomplicated; Z79.84 Long term (current) use of oral hypoglycemic drugs; Z79.899 Other long term (current) drug therapy
CPT/HCPCS: 36415; 80053; 80143; 80179; 80307; 81001; 82077; 85025; 87635; 99283; 99284

== ENCOUNTER 2022-06-21 18:16 | Emergency (ER) | payer MEDICARE, MEDICAID, SELFPAY ==
--- NOTE | 2022-06-21 18:28 | ED.PSYCH ---
HPI - Psych General Chief Complaint: Psychiatric Symptoms Stated Complaint: crisis/si Time Seen by Provider: 06/21/22 18:28 Source: patient and EMS Mode of arrival: EMS Limitations: no limitations History of Present Illness HPI Narrative: Patient comes emergency room complaining severe anxiety, hearing voices for almost 24 hours. Patient states she has homicidal ideation, has been cutting herself again. Patient is well-known to the emergency room for suicidal ideation and anxiety. Patient comes to the ED almost every 2nd to 3rd day. Patient denies homicidal ideation Related Data Home Medications Medication Instructions Recorded Confirmed atorvastatin 10 mg tablet 1 tab PO DAILY 05/29/21 06/17/22 fluticasone propionate 110 2 puff inhalation BID 05/29/21 06/17/22 mcg/actuation HFA aerosol inhaler (Flovent HFA) metformin 500 mg tablet 1 tab PO BID 05/29/21 06/17/22 montelukast 10 mg tablet 1 tab PO BEDTIME 05/29/21 06/17/22 verapamil 240 mg tablet,extended 240 mg PO BEDTIME 05/29/21 06/17/22 release albuterol sulfate 90 mcg/actuation 2 puff inhalation Q4H PRN 06/15/21 06/17/22 aerosol inhaler (Ventolin HFA) Shortness Of Breath trazodone 150 mg tablet 150 mg PO BEDTIME 11/05/21 06/17/22 benztropine 1 mg tablet 1 mg PO DAILY 12/26/21 06/17/22 fluphenazine HCl 2.5 mg tablet 1 tab PO BEDTIME 03/19/22 06/17/22 fluphenazine HCl 5 mg tablet 1 tab PO BEDTIME 03/19/22 06/17/22 chlorpromazine 25 mg tablet 1 tab PO TID 06/17/22 06/17/22 hydroxyzine HCl 50 mg tablet 2 tab PO BID 06/17/22 06/17/22 Previous Rx's Medication Instructions Recorded fluoxetine 20 mg capsule 40 mg PO DAILY 30 days #60 caps 09/29/21 prazosin 1 mg capsule 4 mg PO BEDTIME 30 days #120 caps 10/18/21 ondansetron 4 mg disintegrating 4 mg PO Q6-8H PRN nausea and 02/04/22 tablet vomiting #14 tabs docusate sodium 100 mg capsule 100 mg PO BID Constipation #60 caps 02/07/22 (Colace) Allergies Allergy/AdvReac Type Severity Reaction Status Date / Time Fish Containing Products Allergy Severe ANAPHYLAXIS Verified 05/06/22 20:47 codeine [Codeine] Allergy Unknown RASH Verified 05/06/22 20:47 Penicillins Allergy Unknown RASH Verified 05/06/22 20:47 prednisone [Prednisone] Allergy Unknown RASH Verified 05/06/22 20:47 Sulfa (Sulfonamide Allergy Unknown RASH Verified 05/06/22 20:47 Antibiotics) [Sulfa (Sulfonamides)] azithromycin [AZITHROMYCIN] AdvReac Severe RASH Verified 05/06/22 20:47 ziprasidone [From Geodon] AdvReac Intermediate dysuria, Verified 05/06/22 20:47 rash Review of Systems Review of Systems: Constitutional : No Weight loss, No Fever, No Chills, No Night Sweats, No Fatigue, No Malaise ENT/Mouth : No Hearing loss, No Ear Pain, No Nasal Congestion, No Sinus Pain, No Hoarseness, No sore throat, No Rhinorrhea, No Swallowing Difficulty Eyes: No Eye Pain, No Swelling, No Redness, No Foreign Body, No Discharge, No Vision Changes Cardiovascular : No Chest Pain, No SOB, No Dyspnea on Exertion, No Orthopnea, No Edema, No Palpitations Respiratory : No Cough, No Sputum, No Wheezing, No Smoke Exposure, No Dyspnea Gastrointestinal : No Nausea, No Vomiting, No Diarrhea, No Constipation, No abdominal Pain, No Hematochezia, No Melena Genitourinary : no irregular bleeding, No Dysuria, No Urinary Frequency, No Hematuria, No Urinary Incontinence, No Urgency, No Flank Pain, No Urinary Flow Changes, No Hesitancy Musculoskeletal : No joint pain, No Myalgias, No Joint Swelling Skin : Complaining of superficial lacerations in her forearms Neuro : No Weakness, No Numbness, No Paresthesias, No Loss of Consciousness, No Dizziness, No Headache Psych : Complaining of anxiety, suicidal ideation, hearing voices Heme/Lymph: No Bruising, No Bleeding,No Lymphadenopathy Endocrine : No Polyuria, No Polydipsia, No Temperature Intolerance PMFSH Past Medical History Medical History Acetaminophen overdose Borderline personality disorder Bronchitis Depression Diabetes type 2, controlled GERD (gastroesophageal reflux disease) History of attempted suicide History of non-suicidal self-harm Hyperlipidemia Hypomagnesemia Major depression MDD (major depressive disorder), recurrent episode, severe Mood disorder Overdose PTSD (post-traumatic stress disorder) Suicide attempt Suicide attempt by acetaminophen overdose Social History Social History Household Members: None Household Members Other:: Patient lives in [facility]. 4 in total live in [facility]. Housing: Other Housing Other:: [facility] Do you presently have visiting nurse or other home services: No Unable to assess alcohol history related to: Unknown Alcohol intake: never Patient Tobacco Use Status: Current everyday Tobacco user Tobacco use type: Cigarette Cigarette Packs Per Day: 1 Cigarettes Per Day: 20 Years Smoked: 20 e-Cigarette/Vaping Use: Never Used Substance Use Type: Marijuana Advance Directives: No Advance Directives Information Provided: No service: No Current occupational status: disabled Sexual orientation: Don't Know Physical Exam Vital Signs: Vital Signs: Last Vital Signs Temp 97.8 F 06/21/22 18:43 Pulse 119 H 06/21/22 18:43 Resp 20 06/21/22 18:43 BP 140/90 H 06/21/22 18:43 Pulse Ox 95 06/21/22 18:43 O2 Del Method 06/21/22 18:43 BMI result Body Mass Index 44.9 Const: Other: Appearance: Alert. Oriented X3. Very anxious, shaking her arms, seems jittery Eyes: Pupils equal, round and reactive to light. ENT: Pharynx normal. Neck: Normal inspection. Neck supple. No lymph nodes noted. No crepitus CVS: Normal heart rate and rhythm. Pulses normal. Normal S1 and S2 Respiratory: No respiratory distress. Breath sounds normal. No Wheezing. No rales Abdomen: Soft and nontender. No rigidity. No distention. Skin: Skin warm and dry. Normal skin color. Normal skin turgor. Extremities: No lower extremity edema. No Lacerations. No Rash Neuro: Oriented X 3. No motor deficit. No sensory deficit. Moving all extremities. No slurred speech. CN 2 through 12 grossly intact Psych: Very anxious, cooperative, Course Course Course Narrative: Patient came on a [facility] network consult pending. Physician observation started at 18:30 20:15, patient was evaluated by the care team pressure [facility] network. Patient is no longer suicidal. Patient states that she is looking forward to going to her Day group program, states she has a new boyfriend and is looking for with seeing him tomorrow. The [facility] was called, they will take Lucita back MDM - Psych Lab Data Labs: Lab Results 06/21/22 Range/Units 18:54 COVID-19 (NICK) Negative (Negative) COVID-19 Clin Com See Note Discharge Plan Discharge Clinical Impression: Anxiety, Suicidal ideation Patient Disposition: Home, Self-Care Instructions: Anxiety (ED) Additional Instructions: Please follow-up with your primary care physician tomorrow. If you have any worsening or new symptoms, please return to the emergency room or call 911 Prescriptions: No Action metformin 500 mg tablet 1 tab PO BID atorvastatin 10 mg tablet 1 tab PO DAILY verapamil 240 mg tablet extended release 240 mg PO BEDTIME montelukast 10 mg tablet 1 tab PO BEDTIME fluticasone propionate [Flovent HFA] 110 mcg/actuation HFA aerosol inhaler 2 puff inhalation BID albuterol sulfate [Ventolin HFA] 90 mcg/actuation HFA aerosol inhaler 2 puff inhalation Q4H PRN (Reason: Shortness Of Breath) trazodone 150 mg tablet 150 mg PO BEDTIME benztropine 1 mg tablet 1 mg PO DAILY docusate sodium [Colace] 100 mg capsule 100 mg PO BID Qty: 60 0RF hydroxyzine HCl 50 mg tablet 2 tab PO BID chlorpromazine 25 mg tablet 1 tab PO TID fluoxetine 20 mg Capsule 40 mg PO DAILY 30 Days Qty: 60 0RF prazosin 1 mg Capsule 4 mg PO BEDTIME 30 Days Qty: 120 0RF Protocol: Hold for SBP< HOLD for SBP < : 90 ondansetron 4 mg tablet,disintegrating 4 mg PO Q6-8H PRN (Reason: nausea and vomiting) Qty: 14 0RF fluphenazine HCl 2.5 mg tablet 1 tab PO BEDTIME fluphenazine HCl 5 mg tablet 1 tab PO BEDTIME
[2022-06-21 18:43] VITALS: BP 140/90; PULSE 119; PULSE 122; RESP 20; TEMP 36.6; O2SAT 95; O2SAT 97; BMI 44.9
[2022-06-21 19:14] LABS: COVID-19 Test Negative (Negative); IDNOW Serial# 55D5AD1C
--- NOTE | 2022-06-21 20:08 | MHC.CARE ---
CARE Team met with pt. Pt initially came in due to being in distress. She was crying and stating that she was hearing her father following her. She stated her father was telling her not to take any medications. Pt calmed down shortly after speaking with the CARE Team and was told to utilize her coping skills. Pt was back to baseline at this time and ED provider is in agreement with pt returning [facility] to her [place] [facility]. Pt denies SI and AH at this time.
== END 2022-06-21 20:26 | disposition home or self-care (01) ==
PROVIDERS: Emergency Provider Emergency Medicine
DX: S51.812A Laceration without foreign body of left forearm, initial encounter (principal); X78.9XXA Intentional self-harm by unspecified sharp object, initial encounter; F41.9 Anxiety disorder, unspecified; R44.0 Auditory hallucinations; F60.3 Borderline personality disorder; F32.9 Major depressive disorder, single episode, unspecified; F43.10 Post-traumatic stress disorder, unspecified; E11.9 Type 2 diabetes mellitus without complications; E78.5 Hyperlipidemia, unspecified; F17.210 Nicotine dependence, cigarettes, uncomplicated; F12.90 Cannabis use, unspecified, uncomplicated; Z79.02 Long term (current) use of antithrombotics/antiplatelets; Z79.84 Long term (current) use of oral hypoglycemic drugs; Z79.899 Other long term (current) drug therapy; Y93.89 Activity, other specified; Y92.049 Unspecified place in boarding-house as the place of occurrence of the external cause; Y99.9 Unspecified external cause status; Z91.51 Personal history of suicidal behavior; Z20.822 Contact with and (suspected) exposure to COVID-19
CPT/HCPCS: 87635; 99282; 99284

== ENCOUNTER 2022-06-23 19:30 | Emergency (ER) | payer MEDICARE, MEDICAID, SELFPAY ==
[2022-06-23 19:31] VITALS: BMI 39.1
[2022-06-23 19:49] VITALS: BP 148/87; PULSE 95; RESP 16; TEMP 36.6; O2SAT 100
[2022-06-23 20:18] LABS: COVID-19 Test Negative (Negative)
--- NOTE | 2022-06-23 21:02 | ED_ITS ---
HPI - Psych General Chief Complaint: Psychiatric Symptoms Stated Complaint: crisis Time Seen by Provider: 06/23/22 20:18 Source: patient and EMS Mode of arrival: EMS Limitations: no limitations History of Present Illness HPI Narrative: Patient comes to the emergency room via ambulance for suicidal ideation, states she is hearing voices. Patient states that on arrival she started feeling better, no longer suicidal, not hearing voices, would like to be discharged. Of note, patient has a care team plan. Patient gets 8 rides back to her care home per month. After she uses her 8 rights, patient will be responsible for paying for her own transportation. Patient is aware of the plan today, patient will use 1 of her passes, then she will have 3 left for the month Related Data Home Medications Medication Instructions Recorded Confirmed atorvastatin 10 mg tablet 1 tab PO DAILY 05/29/21 06/23/22 fluticasone propionate 110 2 puff inhalation BID 05/29/21 06/23/22 mcg/actuation HFA aerosol inhaler (Flovent HFA) metformin 500 mg tablet 1 tab PO BID 05/29/21 06/23/22 montelukast 10 mg tablet 1 tab PO BEDTIME 05/29/21 06/23/22 verapamil 240 mg tablet,extended 240 mg PO BEDTIME 05/29/21 06/23/22 release albuterol sulfate 90 mcg/actuation 2 puff inhalation Q4H PRN 06/15/21 06/23/22 aerosol inhaler (Ventolin HFA) Shortness Of Breath trazodone 150 mg tablet 150 mg PO BEDTIME 11/05/21 06/23/22 benztropine 1 mg tablet 1 mg PO DAILY 12/26/21 06/23/22 fluphenazine HCl 2.5 mg tablet 1 tab PO BEDTIME 03/19/22 06/23/22 fluphenazine HCl 5 mg tablet 1 tab PO BEDTIME 03/19/22 06/23/22 chlorpromazine 25 mg tablet 1 tab PO TID 06/17/22 06/23/22 hydroxyzine HCl 50 mg tablet 2 tab PO BID 06/17/22 06/23/22 Previous Rx's Medication Instructions Recorded fluoxetine 20 mg capsule 40 mg PO DAILY 30 days #60 caps 09/29/21 prazosin 1 mg capsule 4 mg PO BEDTIME 30 days #120 caps 10/18/21 ondansetron 4 mg disintegrating 4 mg PO Q6-8H PRN nausea and 02/04/22 tablet vomiting #14 tabs docusate sodium 100 mg capsule 100 mg PO BID Constipation #60 caps 02/07/22 (Colace) Allergies Allergy/AdvReac Type Severity Reaction Status Date / Time Fish Containing Products Allergy Severe ANAPHYLAXIS Verified 05/06/22 20:47 codeine [Codeine] Allergy Unknown RASH Verified 05/06/22 20:47 Penicillins Allergy Unknown RASH Verified 05/06/22 20:47 prednisone [Prednisone] Allergy Unknown RASH Verified 05/06/22 20:47 Sulfa (Sulfonamide Allergy Unknown RASH Verified 05/06/22 20:47 Antibiotics) [Sulfa (Sulfonamides)] azithromycin [AZITHROMYCIN] AdvReac Severe RASH Verified 05/06/22 20:47 ziprasidone [From Geodon] AdvReac Intermediate dysuria, Verified 05/06/22 20:47 rash Review of Systems Review of Systems: Constitutional : No Weight loss, No Fever, No Chills, No Night Sweats, No Fatigue, No Malaise ENT/Mouth : No Hearing loss, No Ear Pain, No Nasal Congestion, No Sinus Pain, No Hoarseness, No sore throat, No Rhinorrhea, No Swallowing Difficulty Eyes: No Eye Pain, No Swelling, No Redness, No Foreign Body, No Discharge, No Vision Changes Cardiovascular : No Chest Pain, No SOB, No Dyspnea on Exertion, No Orthopnea, No Edema, No Palpitations Respiratory : No Cough, No Sputum, No Wheezing, No Smoke Exposure, No Dyspnea Gastrointestinal : No Nausea, No Vomiting, No Diarrhea, No Constipation, No abdominal Pain, No Hematochezia, No Melena Genitourinary : no irregular bleeding, No Dysuria, No Urinary Frequency, No Hematuria, No Urinary Incontinence, No Urgency, No Flank Pain, No Urinary Flow Changes, No Hesitancy Musculoskeletal : No joint pain, No Myalgias, No Joint Swelling Skin : No Skin Lesions, No rash Neuro : No Weakness, No Numbness, No Paresthesias, No Loss of Consciousness, No Dizziness, No Headache Psych : Complaining of suicidal ideation which self-resolved, complaining of hearing voices but no longer hearing voices on arrival today the ED Heme/Lymph: No Bruising, No Bleeding,No Lymphadenopathy Endocrine : No Polyuria, No Polydipsia, No Temperature Intolerance PMFSH Past Medical History Medical History Acetaminophen overdose Borderline personality disorder Bronchitis Depression Diabetes type 2, controlled GERD (gastroesophageal reflux disease) History of attempted suicide History of non-suicidal self-harm Hyperlipidemia Hypomagnesemia Major depression MDD (major depressive disorder), recurrent episode, severe Mood disorder Overdose PTSD (post-traumatic stress disorder) Suicide attempt Suicide attempt by acetaminophen overdose Social History Social History Household Members: None Household Members Other:: Patient lives in care home. 4 in total live in care home. Housing: Other Housing Other:: care home Do you presently have visiting nurse or other home services: No Unable to assess alcohol history related to: Unknown Alcohol intake: never Patient Tobacco Use Status: Current everyday Tobacco user Tobacco use type: Cigarette Cigarette Packs Per Day: 1 Cigarettes Per Day: 20 Years Smoked: 20 e-Cigarette/Vaping Use: Never Used Substance Use Type: Marijuana Advance Directives: No Advance Directives Information Provided: No service: No Current occupational status: disabled Sexual orientation: Don't Know Physical Exam Vital Signs: Vital Signs: Last Vital Signs Temp 98 F 06/23/22 19:49 Pulse 95 06/23/22 19:49 Resp 16 06/23/22 19:49 BP 148/87 H 06/23/22 19:49 Pulse Ox 100 06/23/22 19:49 O2 Del Method 06/23/22 19:49 BMI result Body Mass Index 39.1 Const: Other: Appearance: Alert. Oriented X3. No acute distress. Eyes: Pupils equal, round and reactive to light. ENT: Pharynx normal. Neck: Normal inspection. Neck supple. No lymph nodes noted. No crepitus CVS: Normal heart rate and rhythm. Pulses normal. Normal S1 and S2 Respiratory: No respiratory distress. Breath sounds normal. No Wheezing. No rales Abdomen: Soft and nontender. No rigidity. No distention. Skin: Skin warm and dry. Normal skin color. Normal skin turgor. No new lacerations Extremities: No lower extremity edema. No Lacerations. No Rash Neuro: Oriented X 3. No motor deficit. No sensory deficit. Moving all extremities. No slurred speech. CN 2 through 12 grossly intact Psych: calm, cooperative, normal affect Course Course Course Narrative: Care team evaluated the patient. Patient may return to her care home. Patient has a care team plan. Patient gets 8 rides back to her care home per month. After she uses her 8 rights, patient will be responsible for paying for her own transportation. Patient is aware of the plan today, patient will use 1 of her passes, then she will have 3passes left for the month MDM - Psych Lab Data Labs: Lab Results 06/23/22 Range/Units 19:56 COVID-19 ([facility]) Negative (Negative) COVID-19 Clin Com See Note Discharge Plan Discharge Clinical Impression: Anxiety Patient Disposition: Home, Self-Care Instructions: Anxiety (ED) Additional Instructions: Please follow-up with your primary care physician tomorrow. If you have any worsening or new symptoms, please return to the emergency room or call 911 Prescriptions: No Action metformin 500 mg tablet 1 tab PO BID atorvastatin 10 mg tablet 1 tab PO DAILY verapamil 240 mg tablet extended release 240 mg PO BEDTIME montelukast 10 mg tablet 1 tab PO BEDTIME fluticasone propionate [Flovent HFA] 110 mcg/actuation HFA aerosol inhaler 2 puff inhalation BID albuterol sulfate [Ventolin HFA] 90 mcg/actuation HFA aerosol inhaler 2 puff inhalation Q4H PRN (Reason: Shortness Of Breath) trazodone 150 mg tablet 150 mg PO BEDTIME benztropine 1 mg tablet 1 mg PO DAILY docusate sodium [Colace] 100 mg capsule 100 mg PO BID Qty: 60 0RF hydroxyzine HCl 50 mg tablet 2 tab PO BID chlorpromazine 25 mg tablet 1 tab PO TID fluoxetine 20 mg Capsule 40 mg PO DAILY 30 Days Qty: 60 0RF prazosin 1 mg Capsule 4 mg PO BEDTIME 30 Days Qty: 120 0RF Protocol: Hold for SBP< HOLD for SBP < : 90 ondansetron 4 mg tablet,disintegrating 4 mg PO Q6-8H PRN (Reason: nausea and vomiting) Qty: 14 0RF fluphenazine HCl 2.5 mg tablet 1 tab PO BEDTIME fluphenazine HCl 5 mg tablet 1 tab PO BEDTIME
--- NOTE | 2022-06-23 21:02 | MHC.CARE ---
Care Team met with pt, pt appears to be at her baseline. Pt is no longer in distress. Pt denied SI/HI/VH. Care Tem spoke to Dr. Ryan who is in agreement with discharge. Care Team spoke to pt [facility] and Libby mentioned she will supervisor opening and picking pt in 15 minutes.
== END 2022-06-23 21:18 | disposition home or self-care (01) ==
PROVIDERS: Emergency Provider Emergency Medicine; PCP Nurse Practitioner Family
DX: F33.1 Major depressive disorder, recurrent, moderate (principal); R45.851 Suicidal ideations; F41.1 Generalized anxiety disorder; F43.0 Acute stress reaction; F17.210 Nicotine dependence, cigarettes, uncomplicated; Z20.822 Contact with and (suspected) exposure to COVID-19; Z79.899 Other long term (current) drug therapy; Z71.6 Tobacco abuse counseling
CPT/HCPCS: 87635; 99282; 99283

== ENCOUNTER 2022-06-27 20:38 | Emergency (ER) | payer MEDICARE, MEDICAID, SELFPAY ==
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
[2022-06-27 20:48] VITALS: BMI 40.3
[2022-06-27 21:07] VITALS: BP 122/75; PULSE 76; RESP 16; TEMP 37; O2SAT 95
[2022-06-27 21:41] LABS: COVID-19 Test Negative (Negative); IDNOW Serial# 16C4AD1C
[2022-06-28 01:04] LABS: Basophils Percent Auto 0.4 % (0-2); Eosinophils Absolute Auto 0.3 X10*3/uL (0.0-0.4); Eosinophils Percent Auto 4.2 % (0-4); Hematocrit 33.3 % (37.0-47.0); Hemoglobin 10.6 g/dl (12.0-16.0); Imm Gran Abs Auto 0.03 X10*3/uL (0.00-0.03); Imm Gran Pct Auto 0.4 % (0.0-0.4); Lymphocytes Absolute Auto 2.3 X10*3/uL (1.2-4.9); MANUAL DIFF FLAG SCAN; Mean Corpuscular HGB Conc 31.8 g/dl (31.0-35.0); Mean Corpuscular Hemoglobin 28.1 pg (27.0-33.0); Mean Corpuscular Volume 88.3 fL (80.0-98.0); Mean Platelet Volume 10.2 fL (9.4-12.3); Monocytes Absolute Auto 0.7 X10*3/uL (0.1-1.2); Monocytes Percent Auto 8.8 % (2-11); Neutrophils Absolute Auto 4.1 x10*3/uL (2.0-8.3); Neutrophils Percent Auto 55.2 % (45-73); PLT CLUMP 1; Red Blood Count 3.77 X10*6/uL (4.20-5.50); Red Cell Distribution Width 12.9 % (11.0-16.0); SCAN SMEAR FLAG 1
[2022-06-28 01:06] LABS: White Blood Count 7.5 X10*3/uL (4.8-10.8)
[2022-06-28 01:12] VITALS: BP 134/78; PULSE 67; RESP 17; TEMP 36.4; O2SAT 96
[2022-06-28 01:22] LABS: Acetaminophen LAB < 1 mcg/mL (<30); Alanine Aminotransferase 12 U/L (0-31); Albumin Level 3.9 g/dL (3.5-5.0); Alkaline Phosphatase 116 U/L (39-117); Anion Gap 15 (12-20); Aspartate Amino Transferase 12 U/L (5-31); Bilirubin Total 0.2 mg/dL (0.0-1.0); Blood Urea Nitrogen 10 mg/dL (9-16); Calcium 8.7 mg/dL (8.4-10.2); Carbon Dioxide 24 mmol/L (22-29); Chloride 107 mmol/L (96-108); Creatinine Clr Calc Pharmacy 117.1; Estimated Glomerular Filt Rate > 60; Glucose Random 93 mg/dL (60-115); Potassium 3.8 mmol/L (3.3-5.1); Salicylate < 5.0 mg/dL (15-30); Sodium 142 mmol/L (135-145); Total Protein 6.2 g/dL (6.5-8.0)
[2022-06-28 01:44] LABS: SLIDE REVIEW VERIFIED
--- NOTE | 2022-06-28 06:33 | PC.NURSE ---
Patient slept through the night, no distress observed/reported, patient wanted to go back to [facility] not knowing the time, patient was advised to stay over night and apeak with care team in the morning, med rec completed/pending provider's approval, pending urine sample for TOX screen, behavior non concerning, will continue to monitor.
--- NOTE | 2022-06-28 08:07 | PC.NURSE ---
patient appears to remain asleep at present respirations are even and unlabored patient appears in no distress
--- NOTE | 2022-06-28 09:48 | MHC.CARE ---
CARE Team met with patient in [facility], she came to the ED by ambulance from home last night with report of suicidal ideation. It appears that by the time she was seen by the provider she was no longer in distress and denied suicidal thoughts. This morning patient was alert and oriented, engaged but more guarded than usual. She was not able to identify a specific trigger, stated that she cut with a tack, the wounds were superficial. 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 Patient engaged in a discussion about safety such as using coping skills or distractions to ride out the urges to self-harm. She denied current suicidal and self harm ideation, plan or intention. Call to detention and updated staff (Radha) that patient is cleared to return, there were no concerns about this. ED provider, Dr. Hernandez updated and in agreement with plan to discharge patient home. CARE Team will follow up with patient by phone later today.
--- NOTE | 2022-06-28 15:23 | MHC.CARE ---
Follow up call made to pt. No answer at . Message was left requesting a return call.
== END 2022-06-28 09:24 | disposition home or self-care (01) ==
PROVIDERS: Physician Assistant; Emergency Provider Internal Medicine; PCP Nurse Practitioner Family
DX: F41.9 Anxiety disorder, unspecified (principal); F32.A Depression, unspecified; R44.0 Auditory hallucinations; S61.512A Laceration without foreign body of left wrist, initial encounter; X78.8XXA Intentional self-harm by other sharp object, initial encounter; F60.3 Borderline personality disorder; F43.10 Post-traumatic stress disorder, unspecified; E11.9 Type 2 diabetes mellitus without complications; E78.5 Hyperlipidemia, unspecified; F17.210 Nicotine dependence, cigarettes, uncomplicated; F12.90 Cannabis use, unspecified, uncomplicated; Z91.51 Personal history of suicidal behavior; Z79.02 Long term (current) use of antithrombotics/antiplatelets; Z79.84 Long term (current) use of oral hypoglycemic drugs; Z79.899 Other long term (current) drug therapy; Z20.822 Contact with and (suspected) exposure to COVID-19; Y93.9 Activity, unspecified; Y92.049 Unspecified place in boarding-house as the place of occurrence of the external cause; Y99.9 Unspecified external cause status
CPT/HCPCS: 36415; 80053; 80143; 80179; 85025; 87635; 99284

== ENCOUNTER 2022-06-30 17:03 | Emergency (ER) | payer MEDICARE, MEDICAID, SELFPAY ==
[2022-06-30 17:13] VITALS: BP 138/80; PULSE 110; TEMP 36.7; O2SAT 98; BMI 36.0
[2022-06-30 17:28] VITALS: BP 116/83; PULSE 86; RESP 16; TEMP 36.7; O2SAT 97
[2022-06-30] MEDS: cephALEXin 500 MG CAPSULE PO (17:35)
--- NOTE | 2022-06-30 18:03 | ED.SKABFB ---
HPI - Skin/Abscess/Foreign Bdy General Chief complaint: Skin/Abscess/Foreign Body Stated complaint: rash Time Seen by Provider: 06/30/22 17:20 Source: patient and EMS Mode of arrival: EMS Limitations: no limitations History of Present Illness HPI narrative: 46-year-old female presenting to the ER with complaints of a rash to the groin area for the past 3 days that is very itchy and painful and ?Raw?. She denies any fevers, chills, dizziness, headaches, neck pain/stiffness, trouble swallowing breathing, chest pain or shortness of breath, dyspnea on exertion, orthopnea, palpitations, paresthesias, nausea/vomiting/diarrhea constipation, black or bloody stools, abdominal pain, back pain, dysuria, hematuria, abnormal vaginal discharge, thoughts of STDs, recent travel or sick contacts, SI/HI/auditory visualizations thoughts of self-injury or any other symptoms complaints or concerns at this time. MD complaint: rash Onset (ago): day(s) (3) Location: genitals (Groin area) Severity: mild Quality: constant and pruritic Pain Consistency: constant Relieving factors: none Exacerbating factors: none Context: none Associated symptoms: denies other symptoms Treatments prior to arrival: none Related Data Home Medications Medication Instructions Recorded Confirmed atorvastatin 10 mg tablet 1 tab PO DAILY 05/29/21 06/27/22 fluticasone propionate 110 2 puff inhalation BID 05/29/21 06/27/22 mcg/actuation HFA aerosol inhaler (Flovent HFA) metformin 500 mg tablet 1 tab PO BID 05/29/21 06/27/22 montelukast 10 mg tablet 1 tab PO BEDTIME 05/29/21 06/27/22 verapamil 240 mg tablet,extended 240 mg PO BEDTIME 05/29/21 06/27/22 release albuterol sulfate 90 mcg/actuation 2 puff inhalation Q4H PRN 06/15/21 06/27/22 aerosol inhaler (Ventolin HFA) Shortness Of Breath trazodone 150 mg tablet 150 mg PO BEDTIME 11/05/21 06/27/22 benztropine 1 mg tablet 1 mg PO DAILY 12/26/21 06/27/22 fluphenazine HCl 2.5 mg tablet 1 tab PO BEDTIME 03/19/22 06/27/22 fluphenazine HCl 5 mg tablet 1 tab PO BEDTIME 03/19/22 06/27/22 chlorpromazine 25 mg tablet 1 tab PO TID 06/17/22 06/27/22 hydroxyzine HCl 50 mg tablet 2 tab PO BID 06/17/22 06/27/22 Previous Rx's Medication Instructions Recorded fluoxetine 20 mg capsule 40 mg PO DAILY 30 days #60 caps 09/29/21 prazosin 1 mg capsule 4 mg PO BEDTIME 30 days #120 caps 10/18/21 ondansetron 4 mg disintegrating 4 mg PO Q6-8H PRN nausea and 02/04/22 tablet vomiting #14 tabs docusate sodium 100 mg capsule 100 mg PO BID Constipation #60 caps 02/07/22 (Colace) cephalexin 500 mg capsule 500 mg PO Q6H 7 days #28 caps 06/30/22 doxycycline monohydrate 100 mg 100 mg PO BID 7 days #14 tabs 06/30/22 tablet nystatin 100,000 unit/gram topical 1 appl topical QID tinea Cruris 06/30/22 ointment #30 grams Allergies Allergy/AdvReac Type Severity Reaction Status Date / Time Fish Containing Products Allergy Severe ANAPHYLAXIS Verified 05/06/22 20:47 codeine [Codeine] Allergy Unknown RASH Verified 05/06/22 20:47 Penicillins Allergy Unknown RASH Verified 05/06/22 20:47 prednisone [Prednisone] Allergy Unknown RASH Verified 05/06/22 20:47 Sulfa (Sulfonamide Allergy Unknown RASH Verified 05/06/22 20:47 Antibiotics) [Sulfa (Sulfonamides)] azithromycin [AZITHROMYCIN] AdvReac Severe RASH Verified 05/06/22 20:47 ziprasidone [From Geodon] AdvReac Intermediate dysuria, Verified 05/06/22 20:47 rash Review of Systems Review of Systems: Constitutional : Denies history of same, Denies any other sites involved, Denies IV drug use, Denies history of MRSA, Denies swollen glands, Denies injury, Denies Fever, Denies Chills, No Sig Pain, Denies Systemic symptoms Cardiovascular : No Chest Pain, No SOB Respiratory : No Dyspnea Gastrointestinal : No abdominal pain Musculoskeletal : No Joint Swelling Skin : + rash to groin area with surrounding erythema, No abscess, No skin laceration, No Foreign bodies, No spreading rash, Denies bites, Denies discharge, Neuro : No Weakness, No Numbness/tingling Psych : No SI/HI/thoughts of self injury Yes all other systems are reviewed and are negative [facility] Past Medical History Attestation statement: The following information was validated with the patient. Source: old records reviewed and nursing notes reviewed Medical History Acetaminophen overdose Borderline personality disorder Bronchitis Depression Diabetes type 2, controlled GERD (gastroesophageal reflux disease) History of attempted suicide History of non-suicidal self-harm Hyperlipidemia Hypomagnesemia Major depression MDD (major depressive disorder), recurrent episode, severe Mood disorder Overdose PTSD (post-traumatic stress disorder) Suicide attempt Suicide attempt by acetaminophen overdose Social History Social History Household Members: None Household Members Other:: Patient lives in nursing home. 4 in total live in nursing home. Housing: Other Housing Other:: nursing home Do you presently have visiting nurse or other home services: No Unable to assess alcohol history related to: Unknown Alcohol intake: never Patient Tobacco Use Status: Current everyday Tobacco user Tobacco use type: Cigarette Cigarette Packs Per Day: 1 Cigarettes Per Day: 20 Years Smoked: 20 Smoked in Last 30 Days: Yes e-Cigarette/Vaping Use: Never Used Use of substances other than those prescribed or required for medical reasons: No Substance Use Type: Marijuana Advance Directives: No Advance Directives Information Provided: No service: No Current occupational status: disabled Sexual orientation: Don't Know Physical Exam Vital Signs: Vital Signs: Last Vital Signs Temp 98.0 F 06/30/22 17:28 Pulse 86 06/30/22 17:28 Resp 16 06/30/22 17:28 BP 116/83 06/30/22 17:28 Pulse Ox 97 06/30/22 17:28 O2 Del Method 06/30/22 17:28 BMI result Body Mass Index 36.0 vital signs have been reviewed as normal and appeared to be correct. Blood pressure normal Heart rate normal. Respiration rate normal. Temperature normal. Oxygen saturation normal. Appearance: Alert. Oriented X3. No acute distress. Head: Normal external exam. Normocephalic. Atraumatic. Eyes: PERRLA. EOMI. Conjunctiva and sclera normal. Eyelids normal. ENT: Pharynx normal. Uvula midline. Moist mucous membranes. Neck: Normal inspection. Neck supple. FROM. CVS: Normal heart rate and rhythm. Respiratory: No respiratory distress. Painless inspiration. Skin: Skin warm and dry. Normal skin color. Normal skin turgor. Erythema and scaly plaque with ring like, raised borders in the groin area consistent with tinea Cruris. No no additional rashes/lesions/lacerations noted. Extremities: No lower extremity edema. Extremities exhibit normal range of motion. Extremities nontender. Neuro: Oriented X 3. No motor deficit. No sensory deficit. Reflexes normal. Normal steady gait. No focal neuro deficits noted. Vascular: + radial pulses/+ 2 distal pedal pulses/+2 dorsalis pedis b/l. Normal cap refill. No cyanosis noted to upper extremity nails and lower extremity toes nails. Course Course Course Narrative: 46-year-old female presenting to the ER with complaints of a rash to the groin area for the past 3 days that is very itchy and painful and ?Raw?. She denies any fevers, chills, dizziness, headaches, neck pain/stiffness, trouble swallowing breathing, chest pain or shortness of breath, dyspnea on exertion, orthopnea, palpitations, paresthesias, nausea/vomiting/diarrhea constipation, black or bloody stools, abdominal pain, back pain, dysuria, hematuria, abnormal vaginal discharge, thoughts of STDs, recent travel or sick contacts, SI/HI/auditory visualizations thoughts of self-injury or any other symptoms complaints or concerns at this time. Patient with tinea Cruris. Therefore at this time will DC home with antibiotics and topical treatment instructions return if any new or worsening symptoms follow up with primary care provider. Patient understands agrees with this plan. MDM - Skin/Abscess/Foreign Bdy Medical Records Attestation: I reviewed the patient's medical records. Discharge Plan Discharge Clinical Impression: Tinea cruris Patient Disposition: Home, Self-Care Instructions: Skin Yeast Infection (ED) Prescriptions: New doxycycline monohydrate 100 mg tablet 100 mg PO BID 7 Days Qty: 14 0RF cephalexin 500 mg capsule 500 mg PO Q6H 7 Days Qty: 28 0RF nystatin 100,000 unit/gram ointment 1 appl topical QID Qty: 30 0RF No Action metformin 500 mg tablet 1 tab PO BID atorvastatin 10 mg tablet 1 tab PO DAILY verapamil 240 mg tablet extended release 240 mg PO BEDTIME montelukast 10 mg tablet 1 tab PO BEDTIME fluticasone propionate [Flovent HFA] 110 mcg/actuation HFA aerosol inhaler 2 puff inhalation BID albuterol sulfate [Ventolin HFA] 90 mcg/actuation HFA aerosol inhaler 2 puff inhalation Q4H PRN (Reason: Shortness Of Breath) trazodone 150 mg tablet 150 mg PO BEDTIME benztropine 1 mg tablet 1 mg PO DAILY docusate sodium [Colace] 100 mg capsule 100 mg PO BID Qty: 60 0RF hydroxyzine HCl 50 mg tablet 2 tab PO BID chlorpromazine 25 mg tablet 1 tab PO TID fluoxetine 20 mg Capsule 40 mg PO DAILY 30 Days Qty: 60 0RF prazosin 1 mg Capsule 4 mg PO BEDTIME 30 Days Qty: 120 0RF Protocol: Hold for SBP< HOLD for SBP < : 90 ondansetron 4 mg tablet,disintegrating 4 mg PO Q6-8H PRN (Reason: nausea and vomiting) Qty: 14 0RF fluphenazine HCl 2.5 mg tablet 1 tab PO BEDTIME fluphenazine HCl 5 mg tablet 1 tab PO BEDTIME Referrals: Physician,Unknown J [Primary Care Provider] - 3 days (your pcp) Print Language: Kittitian
== END 2022-06-30 20:43 | disposition home or self-care (01) ==
PROVIDERS: Emergency Provider Internal Medicine
DX: B35.6 Tinea cruris (principal); E11.9 Type 2 diabetes mellitus without complications; E78.5 Hyperlipidemia, unspecified; F17.210 Nicotine dependence, cigarettes, uncomplicated; Z79.02 Long term (current) use of antithrombotics/antiplatelets; Z79.84 Long term (current) use of oral hypoglycemic drugs; Z79.899 Other long term (current) drug therapy
CPT/HCPCS: 99283; 99284

== ENCOUNTER 2022-07-03 18:39 | Emergency (ER) | payer MEDICARE, MEDICAID, SELFPAY ==
--- NOTE | 2022-07-03 18:42 | ED.PSYCH ---
HPI - Psych General Chief Complaint: Psychiatric Symptoms Stated Complaint: AUDITORY HALLUCINATIONS Source: patient and EMS Mode of arrival: EMS Limitations: no limitations History of Present Illness HPI Narrative: 46-year-old female presents via EMS for suicidal ideation. She does not have a plan, and states that she is having auditory hallucinations as well. She did not have any physical complaints at this time. MD complaint: suicidal ideation, feels depressed and anxiety Onset (ago): year(s) Duration: constant History of same: Yes Relieving factors: none Associated psychiatric symptoms: depression, suicidal ideation, racing thoughts and auditory hallucinations Associated symptoms: denies other symptoms Treatments prior to arrival: none If self harm: admits thoughts of self harm and has acted on plan Related Data Home Medications Medication Instructions Recorded Confirmed atorvastatin 10 mg tablet 1 tab PO DAILY 05/29/21 06/27/22 fluticasone propionate 110 2 puff inhalation BID 05/29/21 06/27/22 mcg/actuation HFA aerosol inhaler (Flovent HFA) metformin 500 mg tablet 1 tab PO BID 05/29/21 06/27/22 montelukast 10 mg tablet 1 tab PO BEDTIME 05/29/21 06/27/22 verapamil 240 mg tablet,extended 240 mg PO BEDTIME 05/29/21 06/27/22 release albuterol sulfate 90 mcg/actuation 2 puff inhalation Q4H PRN 06/15/21 06/27/22 aerosol inhaler (Ventolin HFA) Shortness Of Breath trazodone 150 mg tablet 150 mg PO BEDTIME 11/05/21 06/27/22 benztropine 1 mg tablet 1 mg PO DAILY 12/26/21 06/27/22 fluphenazine HCl 2.5 mg tablet 1 tab PO BEDTIME 03/19/22 06/27/22 fluphenazine HCl 5 mg tablet 1 tab PO BEDTIME 03/19/22 06/27/22 chlorpromazine 25 mg tablet 1 tab PO TID 06/17/22 06/27/22 hydroxyzine HCl 50 mg tablet 2 tab PO BID 06/17/22 06/27/22 Previous Rx's Medication Instructions Recorded fluoxetine 20 mg capsule 40 mg PO DAILY 30 days #60 caps 09/29/21 prazosin 1 mg capsule 4 mg PO BEDTIME 30 days #120 caps 10/18/21 ondansetron 4 mg disintegrating 4 mg PO Q6-8H PRN nausea and 02/04/22 tablet vomiting #14 tabs docusate sodium 100 mg capsule 100 mg PO BID Constipation #60 caps 02/07/22 (Colace) cephalexin 500 mg capsule 500 mg PO Q6H 7 days #28 caps 06/30/22 doxycycline monohydrate 100 mg 100 mg PO BID 7 days #14 tabs 06/30/22 tablet nystatin 100,000 unit/gram topical 1 appl topical QID tinea Cruris 06/30/22 ointment #30 grams Allergies Allergy/AdvReac Type Severity Reaction Status Date / Time Fish Containing Products Allergy Severe ANAPHYLAXIS Verified 05/06/22 20:47 codeine [Codeine] Allergy Unknown RASH Verified 05/06/22 20:47 Penicillins Allergy Unknown RASH Verified 05/06/22 20:47 prednisone [Prednisone] Allergy Unknown RASH Verified 05/06/22 20:47 Sulfa (Sulfonamide Allergy Unknown RASH Verified 05/06/22 20:47 Antibiotics) [Sulfa (Sulfonamides)] azithromycin [AZITHROMYCIN] AdvReac Severe RASH Verified 05/06/22 20:47 ziprasidone [From Geodon] AdvReac Intermediate dysuria, Verified 05/06/22 20:47 rash Review of Systems Review of Systems: Constitutional: No Fever, No Chills ENT/Mouth: No Ear Pain, No Nasal Congestion, No sore throat Eyes: No Eye Pain, No Swelling, No Redness Cardiovascular: No Chest Pain, No SOB Respiratory: No Cough, No Sputum, No Dyspnea Gastrointestinal: No Nausea, No Vomiting, No Diarrhea, No Hematochezia, No Melena Genitourinary: No Dysuria, No Urinary Frequency, No Hematuria Musculoskeletal: No Myalgias Skin: No Skin Lesions, No rash Neuro: No Weakness, No Numbness, No Paresthesias, No Dizziness, No Headache Psych: positive Anxiety, positive Depression, positive SI Heme/Lymph: No Lymphadenopathy Endocrine: No Polyuria, No Polydipsia Yes all other systems are reviewed and are negative [facility] Past Medical History Attestation statement: The following information was validated with the patient. Source: old records reviewed Medical History Acetaminophen overdose Borderline personality disorder Bronchitis Depression Diabetes type 2, controlled GERD (gastroesophageal reflux disease) History of attempted suicide History of non-suicidal self-harm Hyperlipidemia Hypomagnesemia Major depression MDD (major depressive disorder), recurrent episode, severe Mood disorder Overdose PTSD (post-traumatic stress disorder) Suicide attempt Suicide attempt by acetaminophen overdose Social History Social History Household Members: None Household Members Other:: [facility] lives in [facility] in total [facility]. Housing: Other Housing Other:: [facility] Do you presently have visiting nurse or other home services: No Unable to assess alcohol history related to: Unknown Alcohol intake: never Patient Tobacco Use Status: Current everyday Tobacco user Tobacco use type: Cigarette Cigarette Packs Per Day: 1 Cigarettes Per Day: 20 Years Smoked: 20 e-Cigarette/Vaping Use: Never Used Substance Use Type: Marijuana Advance Directives: No Advance Directives Information Provided: No service: No Current occupational status: disabled Sexual orientation: Don't Know Physical Exam Vital Signs: Vital Signs: Last Vital Signs Temp 98.3 F 07/03/22 18:56 Pulse 90 07/03/22 18:56 Resp 18 07/03/22 18:56 BP 125/73 07/03/22 18:56 Pulse Ox 97 07/03/22 18:56 O2 Del Method 07/03/22 18:56 BMI result Body Mass Index 36.0 Appearance: Alert. Oriented X3. No acute distress. Eyes: Pupils equal, round and reactive to light. ENT: Pharynx normal. Neck: Normal inspection. Neck supple. CVS: Normal heart rate and rhythm. Pulses normal. Respiratory: No respiratory distress. Breath sounds normal. Abdomen: Soft and nontender. Skin: Skin warm and dry. Normal skin color. Normal skin turgor. Extremities: No lower extremity edema. Gait well-balanced well coordinated Neuro: No motor deficit. No sensory deficit. Cranial nerves 2-12 intact Course Course Course Narrative: 46-year-old female presents via EMS for suicidal ideation. Has a care plan place, presents to the emergency department on regular basis for similar circumstances. Patient does not report Tylenol use at this time, does not have a significant plan but states auditory hallucinations that are telling her to kill herself. Patient has no medical complaints at this time. Is alert oriented x4, answering questions politely and appropriately, even unlabored respirations, no indication of toxicity, afebrile and vital signs within normal limits. Will order care team consult. 19:17 discussion with care team, plan of care is to discharge home. Patient verbalized understanding of and agrees to plan of care discharge home. Verbalized understanding of signs and symptoms indicating need for emergent intervention. MDM - Psych Differential Diagnosis Differential diagnosis: Likely suicidal ideation and depression Medical Records Attestation: I reviewed the patient's medical records. Discharge Plan Discharge Clinical Impression: Major depression, Suicidal ideation Patient Disposition: Home, Self-Care Instructions: Depression (ED), Suicide Prevention (ED) Additional Instructions: Follow-up with outpatient psychiatry as scheduled. Thank you for choosing this emergency department for evaluation. Please follow-up with primary care physician as needed. Return to the emergency department for any new, concerning, or worsening symptoms. Prescriptions: No Action metformin 500 mg tablet 1 tab PO BID atorvastatin 10 mg tablet 1 tab PO DAILY verapamil 240 mg tablet extended release 240 mg PO BEDTIME montelukast 10 mg tablet 1 tab PO BEDTIME fluticasone propionate [Flovent HFA] 110 mcg/actuation HFA aerosol inhaler 2 puff inhalation BID albuterol sulfate [Ventolin HFA] 90 mcg/actuation HFA aerosol inhaler 2 puff inhalation Q4H PRN (Reason: Shortness Of Breath) trazodone 150 mg tablet 150 mg PO BEDTIME benztropine 1 mg tablet 1 mg PO DAILY docusate sodium [Colace] 100 mg capsule 100 mg PO BID Qty: 60 0RF hydroxyzine HCl 50 mg tablet 2 tab PO BID chlorpromazine 25 mg tablet 1 tab PO TID doxycycline monohydrate 100 mg tablet 100 mg PO BID 7 Days Qty: 14 0RF cephalexin 500 mg capsule 500 mg PO Q6H 7 Days Qty: 28 0RF nystatin 100,000 unit/gram ointment 1 appl topical QID Qty: 30 0RF fluoxetine 20 mg Capsule 40 mg PO DAILY 30 Days Qty: 60 0RF prazosin 1 mg Capsule 4 mg PO BEDTIME 30 Days Qty: 120 0RF Protocol: Hold for SBP< HOLD for SBP < : 90 ondansetron 4 mg tablet,disintegrating 4 mg PO Q6-8H PRN (Reason: nausea and vomiting) Qty: 14 0RF fluphenazine HCl 2.5 mg tablet 1 tab PO BEDTIME fluphenazine HCl 5 mg tablet 1 tab PO BEDTIME Interventions: ED Discharge Assessment Last Done: 07/03/22 19:23 Discharge Date/Time: 07/03/22 19:25
[2022-07-03 18:56] VITALS: BP 125/73; PULSE 90; RESP 18; TEMP 36.8; O2SAT 97; BMI 36.0
--- NOTE | 2022-07-03 19:23 | PC.NURSE ---
care team came to see patient, pt is denying si/hi, provider was notified, pt is being discharged by care team.
--- NOTE | 2022-07-03 19:35 | MHC.CARE ---
CARE Team meets with pt, who is very well known to CARE Team in order to provide support and assess for risk. Pt states that she got into a conflict at her [facility] with a peer who was critical of her. Pt also identified increased trauma related symptoms, hearing voices and feeling overwhelmed. Pt identifies feeling proud of herself for decreased psychiatric hospitalization in the past six months. Pt initially states that she wants stay and be assessed by crisis with the thought of going inpt, but then changes her mind saying I want to sleep in my own bed. She shows some insight, stating I just panicked prior to calling 911. Pt often presents to the ED with in an intense emotional state, and once regulated she often opts to return to her [facility] to continue working with her outpatient team. CARE Team leaves message for [facility] and provides pt with a ride home. Pt appears to be at her baseline, which includes chronic risk not mitigated by inpt admission. Pt has outpatient therapy, psychiatry, day tx program, and a 24hr staffed [facility] [place]. CARE Team recommends d/c, which provider Rosario Dillon NP agrees with.
== END 2022-07-03 19:25 | disposition home or self-care (01) ==
PROVIDERS: Emergency Provider Emergency Medicine
DX: F32.9 Major depressive disorder, single episode, unspecified (principal); R45.851 Suicidal ideations; R44.0 Auditory hallucinations; F41.9 Anxiety disorder, unspecified; F43.10 Post-traumatic stress disorder, unspecified; E11.9 Type 2 diabetes mellitus without complications; E78.5 Hyperlipidemia, unspecified; F17.210 Nicotine dependence, cigarettes, uncomplicated; F12.90 Cannabis use, unspecified, uncomplicated; Z91.51 Personal history of suicidal behavior; Z79.02 Long term (current) use of antithrombotics/antiplatelets; Z79.84 Long term (current) use of oral hypoglycemic drugs; Z79.899 Other long term (current) drug therapy
CPT/HCPCS: 99282; 99284

== ENCOUNTER 2022-07-04 19:39 | Emergency (ER) | payer MEDICARE, MEDICAID, SELFPAY ==
[2022-07-04 19:48] VITALS: BP 168/104; PULSE 98; RESP 20; TEMP 36.3; O2SAT 99; BMI 39.1
--- NOTE | 2022-07-04 19:58 | ED.PSYCH ---
HPI - Psych General Chief Complaint: Psychiatric Symptoms Stated Complaint: psych/ behavioral Time Seen by Provider: 07/04/22 19:47 Source: patient and EMS Mode of arrival: EMS Limitations: no limitations History of Present Illness HPI Narrative: patient comes to the emergency room via ambulance complaining of hearing voices and suicidal ideation. Patient denies any self-harm or cutting this time. Denies using any substances or prescribed medications. Patient states that she is very upset because she recently broke up with her boyfriend. Related Data Home Medications Medication Instructions Recorded Confirmed atorvastatin 10 mg tablet 1 tab PO DAILY 05/29/21 06/27/22 fluticasone propionate 110 2 puff inhalation BID 05/29/21 06/27/22 mcg/actuation HFA aerosol inhaler (Flovent HFA) metformin 500 mg tablet 1 tab PO BID 05/29/21 06/27/22 montelukast 10 mg tablet 1 tab PO BEDTIME 05/29/21 06/27/22 verapamil 240 mg tablet,extended 240 mg PO BEDTIME 05/29/21 06/27/22 release albuterol sulfate 90 mcg/actuation 2 puff inhalation Q4H PRN 06/15/21 06/27/22 aerosol inhaler (Ventolin HFA) Shortness Of Breath trazodone 150 mg tablet 150 mg PO BEDTIME 11/05/21 06/27/22 benztropine 1 mg tablet 1 mg PO DAILY 12/26/21 06/27/22 fluphenazine HCl 2.5 mg tablet 1 tab PO BEDTIME 03/19/22 06/27/22 fluphenazine HCl 5 mg tablet 1 tab PO BEDTIME 03/19/22 06/27/22 chlorpromazine 25 mg tablet 1 tab PO TID 06/17/22 06/27/22 hydroxyzine HCl 50 mg tablet 2 tab PO BID 06/17/22 06/27/22 Previous Rx's Medication Instructions Recorded fluoxetine 20 mg capsule 40 mg PO DAILY 30 days #60 caps 09/29/21 prazosin 1 mg capsule 4 mg PO BEDTIME 30 days #120 caps 10/18/21 ondansetron 4 mg disintegrating 4 mg PO Q6-8H PRN nausea and 02/04/22 tablet vomiting #14 tabs docusate sodium 100 mg capsule 100 mg PO BID Constipation #60 caps 02/07/22 (Colace) cephalexin 500 mg capsule 500 mg PO Q6H 7 days #28 caps 06/30/22 doxycycline monohydrate 100 mg 100 mg PO BID 7 days #14 tabs 06/30/22 tablet nystatin 100,000 unit/gram topical 1 appl topical QID tinea Cruris 06/30/22 ointment #30 grams Allergies Allergy/AdvReac Type Severity Reaction Status Date / Time Fish Containing Products Allergy Severe ANAPHYLAXIS Verified 05/06/22 20:47 codeine [Codeine] Allergy Unknown RASH Verified 05/06/22 20:47 Penicillins Allergy Unknown RASH Verified 05/06/22 20:47 prednisone [Prednisone] Allergy Unknown RASH Verified 05/06/22 20:47 Sulfa (Sulfonamide Allergy Unknown RASH Verified 05/06/22 20:47 Antibiotics) [Sulfa (Sulfonamides)] azithromycin [AZITHROMYCIN] AdvReac Severe RASH Verified 05/06/22 20:47 ziprasidone [From Geodon] AdvReac Intermediate dysuria, Verified 05/06/22 20:47 rash Review of Systems Review of Systems: Constitutional : No Weight loss, No Fever, No Chills, No Night Sweats, No Fatigue, No Malaise ENT/Mouth : No Hearing loss, No Ear Pain, No Nasal Congestion, No Sinus Pain, No Hoarseness, No sore throat, No Rhinorrhea, No Swallowing Difficulty Eyes: No Eye Pain, No Swelling, No Redness, No Foreign Body, No Discharge, No Vision Changes Cardiovascular : No Chest Pain, No SOB, No Dyspnea on Exertion, No Orthopnea, No Edema, No Palpitations Respiratory : No Cough, No Sputum, No Wheezing, No Smoke Exposure, No Dyspnea Gastrointestinal : No Nausea, No Vomiting, No Diarrhea, No Constipation, No abdominal Pain, No Hematochezia, No Melena Genitourinary : no irregular bleeding, No Dysuria, No Urinary Frequency, No Hematuria, No Urinary Incontinence, No Urgency, No Flank Pain, No Urinary Flow Changes, No Hesitancy Musculoskeletal : No joint pain, No Myalgias, No Joint Swelling Skin : No Skin Lesions, No rash Neuro : No Weakness, No Numbness, No Paresthesias, No Loss of Consciousness, No Dizziness, No Headache Psych : Complaining of anxiety, SI, auditory hallucinations Heme/Lymph: No Bruising, No Bleeding,No Lymphadenopathy Endocrine : No Polyuria, No Polydipsia, No Temperature Intolerance [facility] Past Medical History Medical History Acetaminophen overdose Borderline personality disorder Bronchitis Depression Diabetes type 2, controlled GERD (gastroesophageal reflux disease) History of attempted suicide History of non-suicidal self-harm Hyperlipidemia Hypomagnesemia Major depression MDD (major depressive disorder), recurrent episode, severe Mood disorder Overdose PTSD (post-traumatic stress disorder) Suicide attempt Suicide attempt by acetaminophen overdose Social History Social History Household Members: None Household Members Other:: Patient lives in skilled nursing. 4 in total live in skilled nursing. Housing: Other Housing Other:: skilled nursing Do you presently have visiting nurse or other home services: No Unable to assess alcohol history related to: Unknown Alcohol intake: never Patient Tobacco Use Status: Current everyday Tobacco user Tobacco use type: Cigarette Cigarette Packs Per Day: 1 Cigarettes Per Day: 20 Years Smoked: 20 e-Cigarette/Vaping Use: Never Used Substance Use Type: Marijuana Advance Directives: No Advance Directives Information Provided: No service: No Current occupational status: disabled Sexual orientation: Don't Know Physical Exam Vital Signs: Vital Signs: Last Vital Signs Temp 97.4 F 07/04/22 19:48 Pulse 98 07/04/22 19:48 Resp 20 07/04/22 19:48 BP 168/104 H 07/04/22 19:48 Pulse Ox 99 07/04/22 19:48 O2 Del Method 07/04/22 19:48 BMI result Body Mass Index 39.1 Const: Other: Appearance: Alert. Oriented X3. Eyes: Pupils equal, round and reactive to light. ENT: Pharynx normal. Neck: Normal inspection. Neck supple. No lymph nodes noted. No crepitus CVS: Normal heart rate and rhythm. Pulses normal. Normal S1 and S2 Respiratory: No respiratory distress. Breath sounds normal. No Wheezing. No rales Abdomen: Soft and nontender. No rigidity. No distention. Skin: Skin warm and dry. Normal skin color. Normal skin turgor. Extremities: No lower extremity edema. No Lacerations. No Rash Neuro: Oriented X 3. No motor deficit. No sensory deficit. Moving all extremities. No slurred speech. CN 2 through 12 grossly intact Psych: anxious, cooperative, pacing around Course Course Course Narrative: behavioral health network consult pending. physician observation started at 20:00 21:00, care team evaluated the patient, patient is no longer suicidal , denies HI. Patient states she is still hearing voices but she is feeling much better and would like to be discharged. Patient frequently comes to the ED, the care team is to discharge the patient home when possible as it is today. Patient has 2 more lifts available out of 8 Discharge Plan Discharge Clinical Impression: Acute anxiety, Auditory hallucinations Patient Disposition: Home, Self-Care Instructions: Hallucinations (ED), Anxiety (ED) Additional Instructions: Please follow-up with your primary care physician tomorrow. If you have any worsening or new symptoms, please return to the emergency room or call 911 Prescriptions: No Action metformin 500 mg tablet 1 tab PO BID atorvastatin 10 mg tablet 1 tab PO DAILY verapamil 240 mg tablet extended release 240 mg PO BEDTIME montelukast 10 mg tablet 1 tab PO BEDTIME fluticasone propionate [Flovent HFA] 110 mcg/actuation HFA aerosol inhaler 2 puff inhalation BID albuterol sulfate [Ventolin HFA] 90 mcg/actuation HFA aerosol inhaler 2 puff inhalation Q4H PRN (Reason: Shortness Of Breath) trazodone 150 mg tablet 150 mg PO BEDTIME benztropine 1 mg tablet 1 mg PO DAILY docusate sodium [Colace] 100 mg capsule 100 mg PO BID Qty: 60 0RF hydroxyzine HCl 50 mg tablet 2 tab PO BID chlorpromazine 25 mg tablet 1 tab PO TID doxycycline monohydrate 100 mg tablet 100 mg PO BID 7 Days Qty: 14 0RF cephalexin 500 mg capsule 500 mg PO Q6H 7 Days Qty: 28 0RF nystatin 100,000 unit/gram ointment 1 appl topical QID Qty: 30 0RF fluoxetine 20 mg Capsule 40 mg PO DAILY 30 Days Qty: 60 0RF prazosin 1 mg Capsule 4 mg PO BEDTIME 30 Days Qty: 120 0RF Protocol: Hold for SBP< HOLD for SBP < : 90 ondansetron 4 mg tablet,disintegrating 4 mg PO Q6-8H PRN (Reason: nausea and vomiting) Qty: 14 0RF fluphenazine HCl 2.5 mg tablet 1 tab PO BEDTIME fluphenazine HCl 5 mg tablet 1 tab PO BEDTIME
--- NOTE | 2022-07-04 20:59 | MHC.CARE ---
Care Team met with a 46 year old female that presented to [facility] with complaints of auditory hallucination and suicidal ideation due to recently breaking up with her boyfriend. Pt stated she was feeling horrible, however, she is doing better and wants to return home. Pt stated she has AH but they are low and she will ignore them. Pt denied SI, HI, and VH. Care Team discussed with MD Eileen Ryan and she was in agreement of discharging the pt. Care Team provided lyft transportation to pt.
[2022-07-04 21:04] LABS: COVID-19 Test Negative (Negative)
== END 2022-07-04 21:10 | disposition home or self-care (01) ==
PROVIDERS: Emergency Provider Emergency Medicine; PCP Nurse Practitioner Family
DX: R44.0 Auditory hallucinations (principal); R45.851 Suicidal ideations; F17.210 Nicotine dependence, cigarettes, uncomplicated; F41.1 Generalized anxiety disorder; F43.0 Acute stress reaction; Z20.822 Contact with and (suspected) exposure to COVID-19; Z71.6 Tobacco abuse counseling; Z79.899 Other long term (current) drug therapy
CPT/HCPCS: 87635; 99282; 99283

== ENCOUNTER 2022-07-06 19:42 | Emergency (ER) | payer MEDICARE, MEDICAID, SELFPAY ==
[2022-07-06 20:01] VITALS: BP 155/101; PULSE 85; RESP 18; TEMP 36.8; O2SAT 96; BMI 39.1
[2022-07-06 20:41] LABS: COVID-19 Test Negative (Negative)
[2022-07-06 20:51] LABS: Acetaminophen LAB < 1 mcg/mL (<30); Salicylate < 5.0 mg/dL (15-30)
--- NOTE | 2022-07-06 21:20 | ED.PSYCH ---
HPI - Psych General Chief Complaint: Psychiatric Symptoms Stated Complaint: si Time Seen by Provider: 07/06/22 20:28 Source: patient Mode of arrival: ambulatory Limitations: no limitations History of Present Illness HPI Narrative: 46-year-old female with borderline personality disorder, depression, anxiety, bipolar 2 with melancholic features, PTSD, DM, GERD, presenting to the ED with auditory hallucinations and self harm X1 day. The patient tells me that she was seen at [facility] last night reporting increased anxiety and auditory hallucinations, she was admitted overnight and discharged this morning. She reports that she did not feel better after leaving their ED and that today she was having increased hallucinations telling her to harm herself, so she cut herself on her abdomen and left arm with a plate. She denies any visual/tactile hallucinations, suicidal ideations, HI, alcohol, or drug use. She denies any acute triggering events today. Denies any medical complaints at this time including chest pain, shortness of breath, fever, chills, abdominal pain, n/v, headache, or dizziness. Related Data Home Medications Medication Instructions Recorded Confirmed atorvastatin 10 mg tablet 1 tab PO DAILY 05/29/21 07/06/22 fluticasone propionate 110 2 puff inhalation BID 05/29/21 07/06/22 mcg/actuation HFA aerosol inhaler (Flovent HFA) metformin 500 mg tablet 1 tab PO BID 05/29/21 07/06/22 montelukast 10 mg tablet 1 tab PO BEDTIME 05/29/21 07/06/22 verapamil 240 mg tablet,extended 240 mg PO BEDTIME 05/29/21 07/06/22 release albuterol sulfate 90 mcg/actuation 2 puff inhalation Q4H PRN 06/15/21 07/06/22 aerosol inhaler (Ventolin HFA) Shortness Of Breath trazodone 150 mg tablet 150 mg PO BEDTIME 11/05/21 07/06/22 benztropine 1 mg tablet 1 mg PO DAILY 12/26/21 07/06/22 fluphenazine HCl 2.5 mg tablet 1 tab PO BEDTIME 03/19/22 07/06/22 fluphenazine HCl 5 mg tablet 1 tab PO BEDTIME 03/19/22 07/06/22 chlorpromazine 25 mg tablet 1 tab PO TID 06/17/22 07/06/22 hydroxyzine HCl 50 mg tablet 2 tab PO BID 06/17/22 07/06/22 Previous Rx's Medication Instructions Recorded fluoxetine 20 mg capsule 40 mg PO DAILY 30 days #60 caps 09/29/21 prazosin 1 mg capsule 4 mg PO BEDTIME 30 days #120 caps 10/18/21 ondansetron 4 mg disintegrating 4 mg PO Q6-8H PRN nausea and 02/04/22 tablet vomiting #14 tabs docusate sodium 100 mg capsule 100 mg PO BID Constipation #60 caps 02/07/22 (Colace) cephalexin 500 mg capsule 500 mg PO Q6H 7 days #28 caps 06/30/22 nystatin 100,000 unit/gram topical 1 appl topical QID tinea Cruris 06/30/22 ointment #30 grams Allergies Allergy/AdvReac Type Severity Reaction Status Date / Time Fish Containing Products Allergy Severe ANAPHYLAXIS Verified 05/06/22 20:47 codeine [Codeine] Allergy Unknown RASH Verified 05/06/22 20:47 Penicillins Allergy Unknown RASH Verified 05/06/22 20:47 prednisone [Prednisone] Allergy Unknown RASH Verified 05/06/22 20:47 Sulfa (Sulfonamide Allergy Unknown RASH Verified 05/06/22 20:47 Antibiotics) [Sulfa (Sulfonamides)] azithromycin [AZITHROMYCIN] AdvReac Severe RASH Verified 05/06/22 20:47 ziprasidone [From Geodon] AdvReac Intermediate dysuria, Verified 05/06/22 20:47 rash Review of Systems Review of Systems: Constitutional : No Weight loss, No Fever, No Chills, No Fatigue, No Malaise ENT/Mouth : No sore throat, No Rhinorrhea Eyes: No Eye Pain, No Swelling, No Redness Cardiovascular : No Chest Pain, No SOB, No Dyspnea on Exertion, No Orthopnea, No Edema, No Palpitations Respiratory : No Cough, No Sputum, No Wheezing Gastrointestinal : No Nausea, No Vomiting, No Diarrhea, No Constipation, No abdominal Pain, No Hematochezia, No Melena Genitourinary : No Dysuria, No Urinary Frequency, No Hematuria, Musculoskeletal : No joint pain, No Myalgias, No Joint Swelling Skin : No Skin Lesions, No rash Neuro : No Weakness, No Numbness, No Dizziness, No Headache Psych : + Anxiety/Panic, + auditory hallucinations, No SI/HI, No Depression All other systems reviewed and are negative Yes all other systems are reviewed and are negative [facility] Past Medical History Attestation statement: The following information was validated with the patient. Source: old records reviewed and nursing notes reviewed Medical History Acetaminophen overdose Borderline personality disorder Bronchitis Depression Diabetes type 2, controlled GERD (gastroesophageal reflux disease) History of attempted suicide History of non-suicidal self-harm Hyperlipidemia Hypomagnesemia Major depression MDD (major depressive disorder), recurrent episode, severe Mood disorder Overdose PTSD (post-traumatic stress disorder) Suicide attempt Suicide attempt by acetaminophen overdose Social History Social History Household Members: None Household Members Other:: Patient lives in retirement. 4 in total live in retirement. Housing: Other Housing Other:: retirement Do you presently have visiting nurse or other home services: No Unable to assess alcohol history related to: Unknown Alcohol intake: never Patient Tobacco Use Status: Current everyday Tobacco user Tobacco use type: Cigarette Cigarette Packs Per Day: 1 Cigarettes Per Day: 20 Years Smoked: 20 e-Cigarette/Vaping Use: Never Used Substance Use Type: Marijuana Advance Directives: No Advance Directives Information Provided: No service: No Current occupational status: disabled Sexual orientation: Don't Know Physical Exam Vital Signs: Vital Signs: Last Vital Signs Temp 98.3 F 07/06/22 20:01 Pulse 85 07/06/22 20:01 Resp 18 07/06/22 20:01 BP 154/94 H 07/06/22 22:12 Pulse Ox 96 07/06/22 20:01 O2 Del Method 07/06/22 20:01 BMI result Body Mass Index 39.1 Patient noted to be hypertensive, liekly due to anxiety upon arrival, will reevaluate once patient is more calm. Appearance: Alert.? Oriented X3.? No acute distress.? Head: Normocephalic, atraumatic, no step-offs or deformities Eyes: Pupils equal, round and reactive to light.? Neck: Normal inspection.? Neck supple.? CVS: Normal heart rate and rhythm.? Pulses normal.? Respiratory: No respiratory distress.? Breath sounds normal.? Abdomen: Soft and nontender.? Skin: Skin warm and dry.? Normal skin color.? Normal skin turgor.?Superficial abrasions to the stomach and left arm, no active bleeding. One laceration on the upper left forearm appears to be slightly deeper, through the dermis but not through the subcutaneous tissue. No surrounding erythema, warmth, or drainage. Extremities: No lower extremity edema.? No calf ttp. 5/5 strength to bilateral upper and lower extremities. FROM of all extremities. Normal sensation to upper and lower extremities bilaterally. Back: No midline tenderness, no C-spine tenderness, full range of motion, no CVA tenderness bilaterally Neuro: Oriented X 3.? No motor deficit.? No sensory deficit. CN 2-12 intact Course Reevaluation(s) Reevaluation #1: Perico from CARE team evaluated patient patient denies SI and HI, patient is back to baseline requesting to go back to retirement. Time: 22:09 Reevaluation #2: CBC wnl. Chemistry w/o acute finding. Tox negative for salicylates or acetaminophen. Patient re-evaluated, tells me that she's feeling better at this time. Denies SI, HI, hallucinations, desire for further self harm. Hemodynamically stable, blood pressure improved. 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 Plan for discharge back to retirement at this time. Comfortable with discharge. Patient in agreement. Time: 22:45 MDM - Psych MDM Narrative Medical decision making narrative: 46 y/o F presenting with auditory hallucinations and self harm. No medical complaints at this time. PE remarkable for superficial lacerations to the left arm and abdomen. No lacerations requiring repair, no active bleeding. Patient's blood pressure noted to be elevated however patient did not take her blood pressure medication, she will be given her meds here. Plan to observe the patient in behavioral health unit, crisis evaluation. Suspect recurrent hallucinations, less likely organic cause of the patient's symptoms such as metabolic derangement. Medical Records Attestation: I reviewed the patient's medical records. Lab Data Attestation: I reviewed the patient's lab results. Result diagrams: 07/06/22 22:48 07/06/22 22:48 Labs: Lab Results 07/06/22 07/06/22 07/06/22 Range/Units 20:20 20:29 22:48 WBC 8.5 (4.8-10.8) X10*3/uL RBC 3.92 L (4.20-5.50) X10*6/uL Hgb 10.9 L (12.0-16.0) g/dl Hct 33.5 L (37.0-47.0) % MCV 85.5 (80.0-98.0) fL MCH 27.8 (27.0-33.0) pg MCHC 32.5 (31.0-35.0) g/dl RDW 13.1 (11.0-16.0) % Plt Count 232 (160-400) X10*3/uL MPV 10.1 (9.4-12.3) fL Immature Gran % (Auto) 0.6 H (0.0-0.4) % Neut % (Auto) 66.0 (45-73) % Lymph % (Auto) 22.6 (20-40) % [place] % (Auto) 7.2 (2-11) % Eos % (Auto) 3.1 (0-4) % Baso % (Auto) 0.5 (0-2) % Lymph # (Auto) 1.9 (1.2-4.9) X10*3/uL [place] # (Auto) 0.6 (0.1-1.2) X10*3/uL Eos # (Auto) 0.3 (0.0-0.4) X10*3/uL Baso # (Auto) 0.0 (0.0-0.2) X10*3/uL Abs Immat Gran (auto) 0.05 H (0.00-0.03) X10*3/uL Absolute Neuts (auto) 5.6 (2.0-8.3) x10*3/uL Absolute Nucleated RBC 0.020 H (0.0-0.012) X10*3/uL Nucleated RBC % (auto) 0.2 (0.0-0.2) /100WBC Sodium (135-145) mmol/L Potassium (3.3-5.1) mmol/L Chloride (96-108) mmol/L Carbon Dioxide (22-29) mmol/L Anion Gap (12-20) BUN (9-16) mg/dL Creatinine (0.5-1.4) mg/dL Estim Creat Clear Calc Estimated GFR Random Glucose (60-115) mg/dL Calcium (8.4-10.2) mg/dL Total Bilirubin (0.0-1.0) mg/dL AST (5-31) U/L ALT (0-31) U/L Alkaline Phosphatase (39-117) U/L Total Protein (6.5-8.0) g/dL Albumin (3.5-5.0) g/dL Salicylates < 5.0 L (15-30) mg/dL Acetaminophen < 1 (<30) mcg/mL Ethyl Alcohol mg/dL COVID-19 ([facility]) Negative (Negative) COVID-19 Clin Com See Note 07/06/22 Range/Units 22:48 WBC (4.8-10.8) X10*3/uL RBC (4.20-5.50) X10*6/uL Hgb (12.0-16.0) g/dl Hct (37.0-47.0) % MCV (80.0-98.0) fL MCH (27.0-33.0) pg MCHC (31.0-35.0) g/dl RDW (11.0-16.0) % Plt Count (160-400) X10*3/uL MPV (9.4-12.3) fL Immature Gran % (Auto) (0.0-0.4) % Neut % (Auto) (45-73) % Lymph % (Auto) (20-40) % [place] % (Auto) (2-11) % Eos % (Auto) (0-4) % Baso % (Auto) (0-2) % Lymph # (Auto) (1.2-4.9) X10*3/uL [place] # (Auto) (0.1-1.2) X10*3/uL Eos # (Auto) (0.0-0.4) X10*3/uL Baso # (Auto) (0.0-0.2) X10*3/uL Abs Immat Gran (auto) (0.00-0.03) X10*3/uL Absolute Neuts (auto) (2.0-8.3) x10*3/uL Absolute Nucleated RBC (0.0-0.012) X10*3/uL Nucleated RBC % (auto) (0.0-0.2) /100WBC Sodium 139 (135-145) mmol/L Potassium 4.0 (3.3-5.1) mmol/L Chloride 106 (96-108) mmol/L Carbon Dioxide 19 L (22-29) mmol/L Anion Gap 18 (12-20) BUN 10 (9-16) mg/dL Creatinine 0.79 (0.5-1.4) mg/dL Estim Creat Clear Calc 110.2 Estimated GFR > 60 Random Glucose 159 H (60-115) mg/dL Calcium 8.6 (8.4-10.2) mg/dL Total Bilirubin 0.2 (0.0-1.0) mg/dL AST 14 (5-31) U/L ALT 10 (0-31) U/L Alkaline Phosphatase 121 H (39-117) U/L Total Protein 6.8 (6.5-8.0) g/dL Albumin 4.2 (3.5-5.0) g/dL Salicylates < 5.0 L (15-30) mg/dL Acetaminophen < 1 (<30) mcg/mL Ethyl Alcohol < 10 mg/dL COVID-19 ([facility]) (Negative) COVID-19 Clin Com Critical Care Time Critical Care Time Critical Care Time: No Discharge Plan Discharge Clinical Impression: Acute anxiety, Chronic schizophrenia Patient Disposition: Home, Self-Care Instructions: Schizophrenia (ED), Anxiety (ED) Additional Instructions: Take your medications as prescribed. If you were prescribed antibiotics today, it is important that you take your medication to their entirety, do not skip any doses, do not finish them early. Follow-up with your primary care provider this week. Return to the emergency department with new or worsening symptoms. Such as fevers, chills, chest pain, shortness of breath, nausea, vomiting, dizziness, headache, vision changes, lethargy, suicidal or homicidal ideation In case of emergency call 911 Prescriptions: No Action metformin 500 mg tablet 1 tab PO BID atorvastatin 10 mg tablet 1 tab PO DAILY verapamil 240 mg tablet extended release 240 mg PO BEDTIME montelukast 10 mg tablet 1 tab PO BEDTIME fluticasone propionate [Flovent HFA] 110 mcg/actuation HFA aerosol inhaler 2 puff inhalation BID albuterol sulfate [Ventolin HFA] 90 mcg/actuation HFA aerosol inhaler 2 puff inhalation Q4H PRN (Reason: Shortness Of Breath) trazodone 150 mg tablet 150 mg PO BEDTIME benztropine 1 mg tablet 1 mg PO DAILY docusate sodium [Colace] 100 mg capsule 100 mg PO BID Qty: 60 0RF hydroxyzine HCl 50 mg tablet 2 tab PO BID chlorpromazine 25 mg tablet 1 tab PO TID cephalexin 500 mg capsule 500 mg PO Q6H 7 Days Qty: 28 0RF nystatin 100,000 unit/gram ointment 1 appl topical QID Qty: 30 0RF fluoxetine 20 mg Capsule 40 mg PO DAILY 30 Days Qty: 60 0RF prazosin 1 mg Capsule 4 mg PO BEDTIME 30 Days Qty: 120 0RF Protocol: Hold for SBP< HOLD for SBP < : 90 ondansetron 4 mg tablet,disintegrating 4 mg PO Q6-8H PRN (Reason: nausea and vomiting) Qty: 14 0RF fluphenazine HCl 2.5 mg tablet 1 tab PO BEDTIME fluphenazine HCl 5 mg tablet 1 tab PO BEDTIME [facility] - 1 day Maribel Marquez NP [Primary Care Provider] - 2 days Interventions: ED Discharge Assessment Last Done: 07/06/22 23:11 Discharge Date/Time: 07/06/22 23:21
[2022-07-06 22:12] VITALS: BP 154/94
[2022-07-06] MEDS: VerapamiL HCL SR 240 MG TABLET.ER PO (22:39)
[2022-07-06 22:53] LABS: MANUAL DIFF FLAG NO
[2022-07-06 22:55] LABS: Basophils Percent Auto 0.5 % (0-2); Eosinophils Absolute Auto 0.3 X10*3/uL (0.0-0.4); Eosinophils Percent Auto 3.1 % (0-4); Hematocrit 33.5 % (37.0-47.0); Hemoglobin 10.9 g/dl (12.0-16.0); Imm Gran Abs Auto 0.05 X10*3/uL (0.00-0.03); Imm Gran Pct Auto 0.6 % (0.0-0.4); Lymphocytes Absolute Auto 1.9 X10*3/uL (1.2-4.9); Lymphocytes Percent Auto 22.6 % (20-40); Mean Corpuscular HGB Conc 32.5 g/dl (31.0-35.0); Mean Corpuscular Hemoglobin 27.8 pg (27.0-33.0); Mean Corpuscular Volume 85.5 fL (80.0-98.0); Mean Platelet Volume 10.1 fL (9.4-12.3); Monocytes Absolute Auto 0.6 X10*3/uL (0.1-1.2); Monocytes Percent Auto 7.2 % (2-11); NRBC Pct Auto 0.2 /100WBC (0.0-0.2); Neutrophils Absolute Auto 5.6 x10*3/uL (2.0-8.3); Platelet Count 232 X10*3/uL (160-400); Red Blood Count 3.92 X10*6/uL (4.20-5.50); Red Cell Distribution Width 13.1 % (11.0-16.0); White Blood Count 8.5 X10*3/uL (4.8-10.8)
--- NOTE | 2022-07-06 23:08 | MHC.CARE ---
pt is well known to the CARE team. Pt presented to the ED after self harm- pt engaged in cutting her abdomen and wrists. Pt denies SI/AH and appears at baseline at this time. Will be d/c back to alf.
[2022-07-06 23:15] LABS: Acetaminophen LAB < 1 mcg/mL (<30); Alanine Aminotransferase 10 U/L (0-31); Albumin Level 4.2 g/dL (3.5-5.0); Alkaline Phosphatase 121 U/L (39-117); Anion Gap 18 (12-20); Aspartate Amino Transferase 14 U/L (5-31); Bilirubin Total 0.2 mg/dL (0.0-1.0); Blood Urea Nitrogen 10 mg/dL (9-16); Calcium 8.6 mg/dL (8.4-10.2); Carbon Dioxide 19 mmol/L (22-29); Chloride 106 mmol/L (96-108); Creatinine Clr Calc Pharmacy 110.2; Estimated Glomerular Filt Rate > 60; Ethanol < 10 mg/dL; Glucose Random 159 mg/dL (60-115); Salicylate < 5.0 mg/dL (15-30); Sodium 139 mmol/L (135-145); Total Protein 6.8 g/dL (6.5-8.0)
== END 2022-07-06 23:21 | disposition home or self-care (01) ==
PROVIDERS: Physician Assistant; Emergency Provider Emergency Medicine Emergency Medical Services; PCP Nurse Practitioner Family
DX: F33.1 Major depressive disorder, recurrent, moderate (principal); R45.851 Suicidal ideations; F41.1 Generalized anxiety disorder; F43.0 Acute stress reaction; F25.9 Schizoaffective disorder, unspecified; Z20.822 Contact with and (suspected) exposure to COVID-19; Z79.899 Other long term (current) drug therapy
CPT/HCPCS: 36415; 80053; 80143; 80179; 82077; 85025; 87635; 99282; 99284

== ENCOUNTER 2022-07-09 20:35 | Emergency (ER) | payer MEDICARE, MEDICAID, SELFPAY ==
[2022-07-09 20:44] VITALS: BP 123/93; PULSE 87; RESP 18; TEMP 37.3; O2SAT 97; BMI 41.6
--- NOTE | 2022-07-09 20:45 | ED.PSYCH ---
HPI - Psych General Chief Complaint: Psychiatric Symptoms Stated Complaint: si Source: patient and EMS Mode of arrival: EMS Limitations: no limitations History of Present Illness HPI Narrative: 46-year-old female presents via EMS from a skilled nursing for suicidal ideation, ideations of self-harm and auditory hallucinations. Patient presents to this facility on a daily basis for similar circumstances. MD complaint: suicidal ideation, feels depressed and hallucinations Onset (ago): year(s) Duration: constant History of same: Yes Relieving factors: none Associated psychiatric symptoms: depression, suicidal ideation and auditory hallucinations Associated symptoms: denies other symptoms Treatments prior to arrival: none If self harm: admits thoughts of self harm, has plan and has acted on plan Related Data Home Medications Medication Instructions Recorded Confirmed atorvastatin 10 mg tablet 1 tab PO DAILY 05/29/21 07/06/22 fluticasone propionate 110 2 puff inhalation BID 05/29/21 07/06/22 mcg/actuation HFA aerosol inhaler (Flovent HFA) metformin 500 mg tablet 1 tab PO BID 05/29/21 07/06/22 montelukast 10 mg tablet 1 tab PO BEDTIME 05/29/21 07/06/22 verapamil 240 mg tablet,extended 240 mg PO BEDTIME 05/29/21 07/06/22 release albuterol sulfate 90 mcg/actuation 2 puff inhalation Q4H PRN 06/15/21 07/06/22 aerosol inhaler (Ventolin HFA) Shortness Of Breath trazodone 150 mg tablet 150 mg PO BEDTIME 11/05/21 07/06/22 benztropine 1 mg tablet 1 mg PO DAILY 12/26/21 07/06/22 fluphenazine HCl 2.5 mg tablet 1 tab PO BEDTIME 03/19/22 07/06/22 fluphenazine HCl 5 mg tablet 1 tab PO BEDTIME 03/19/22 07/06/22 chlorpromazine 25 mg tablet 1 tab PO TID 06/17/22 07/06/22 hydroxyzine HCl 50 mg tablet 2 tab PO BID 06/17/22 07/06/22 Previous Rx's Medication Instructions Recorded fluoxetine 20 mg capsule 40 mg PO DAILY 30 days #60 caps 09/29/21 prazosin 1 mg capsule 4 mg PO BEDTIME 30 days #120 caps 10/18/21 ondansetron 4 mg disintegrating 4 mg PO Q6-8H PRN nausea and 02/04/22 tablet vomiting #14 tabs docusate sodium 100 mg capsule 100 mg PO BID Constipation #60 caps 02/07/22 (Colace) cephalexin 500 mg capsule 500 mg PO Q6H 7 days #28 caps 06/30/22 nystatin 100,000 unit/gram topical 1 appl topical QID tinea Cruris 06/30/22 ointment #30 grams Allergies Allergy/AdvReac Type Severity Reaction Status Date / Time Fish Containing Products Allergy Severe ANAPHYLAXIS Verified 05/06/22 20:47 codeine [Codeine] Allergy Unknown RASH Verified 05/06/22 20:47 Penicillins Allergy Unknown RASH Verified 05/06/22 20:47 prednisone [Prednisone] Allergy Unknown RASH Verified 05/06/22 20:47 Sulfa (Sulfonamide Allergy Unknown RASH Verified 05/06/22 20:47 Antibiotics) [Sulfa (Sulfonamides)] azithromycin [AZITHROMYCIN] AdvReac Severe RASH Verified 05/06/22 20:47 ziprasidone [From Geodon] AdvReac Intermediate dysuria, Verified 05/06/22 20:47 rash Review of Systems Review of Systems: Constitutional: No Fever, No Chills ENT/Mouth: No Ear Pain, No Nasal Congestion, No sore throat Eyes: No Eye Pain, No Swelling, No Redness Cardiovascular: No Chest Pain, No SOB Respiratory: No Cough, No Sputum, No Dyspnea Gastrointestinal: No Nausea, No Vomiting, No Diarrhea, No Hematochezia, No Melena Genitourinary: No Dysuria, No Urinary Frequency, No Hematuria Musculoskeletal: No Myalgias Skin: No Skin Lesions, No rash Neuro: No Weakness, No Numbness, No Paresthesias, No Dizziness, No Headache Psych: positive Anxiety, positive Depression, positive SI, positive auditory hallucinations Heme/Lymph: No Lymphadenopathy Endocrine: No Polyuria, No Polydipsia Yes all other systems are reviewed and are negative [facility] Past Medical History Attestation statement: The following information was validated with the patient. Source: old records reviewed Medical History Acetaminophen overdose Borderline personality disorder Bronchitis Depression Diabetes type 2, controlled GERD (gastroesophageal reflux disease) History of attempted suicide History of non-suicidal self-harm Hyperlipidemia Hypomagnesemia Major depression MDD (major depressive disorder), recurrent episode, severe Mood disorder Overdose PTSD (post-traumatic stress disorder) Suicide attempt Suicide attempt by acetaminophen overdose Social History Social History Household Members: None Household Members Other:: Patient lives in skilled nursing. 4 in total live in skilled nursing. Housing: Other Housing Other:: skilled nursing Do you presently have visiting nurse or other home services: No Unable to assess alcohol history related to: Unknown Alcohol intake: never Patient Tobacco Use Status: Current everyday Tobacco user Tobacco use type: Cigarette Cigarette Packs Per Day: 1 Cigarettes Per Day: 20 Years Smoked: 20 e-Cigarette/Vaping Use: Never Used Substance Use Type: Marijuana Advance Directives: No Advance Directives Information Provided: No service: No Current occupational status: disabled Sexual orientation: Don't Know Physical Exam Vital Signs: Vital Signs: Last Vital Signs Temp 99.2 F 07/09/22 20:44 Pulse 87 07/09/22 20:44 Resp 18 07/09/22 20:44 BP 123/93 H 07/09/22 20:44 Pulse Ox 97 07/09/22 20:44 O2 Del Method 07/09/22 20:44 BMI result Body Mass Index 41.6 Appearance: Alert. Oriented X3. Moderate emotional distress. Eyes: Pupils equal, round and reactive to light. Sclera nonicteric. ENT: Pharynx normal. Neck: Normal inspection. Neck supple. CVS: Normal heart rate and rhythm. Pulses normal. Respiratory: No respiratory distress. Breath sounds normal. Abdomen: Soft and nontender. Skin: Multiple superficial lacerations to bilateral upper extremities. Numerous scars from prior self-inflicted injuries to all extremities. Extremities: No lower extremity edema. Gait well-balanced well coordinated. Neuro: No motor deficit. No sensory deficit. Cranial nerves 2-12 intact. Course Course Course Narrative: 46-year-old female presents via EMS for suicidal ideation, ideations self-harm, and auditory hallucinations. Patient presents to this facility on a regular basis, sometimes twice daily for similar circumstances. She does not report any significant life stressors, and denies Tylenol abuse at this time. Patient is alert oriented x4, answering questions politely and appropriately, gait is well balanced well coordinated. Patient states to have 10/10 anxiety, will order p.o. Ativan at this time. Will follow behavior plan, and order care team consult. 22:32 care team consult complete. Plan of care is for patient to be discharged home. MDM - Psych Differential Diagnosis Differential diagnosis: Likely acute psychosis, suicidal ideation, depression, acute anxiety and mood disorder Medical Records Attestation: I reviewed the patient's medical records. Lab Data Attestation: I reviewed the patient's lab results. Result diagrams: 07/09/22 21:37 07/09/22 21:37 Labs: Lab Results 07/09/22 07/09/22 07/09/22 Range/Units 21:09 21:37 21:37 WBC 8.9 (4.8-10.8) X10*3/uL RBC 3.91 L (4.20-5.50) X10*6/uL Hgb 10.9 L (12.0-16.0) g/dl Hct 34.1 L (37.0-47.0) % MCV 87.2 (80.0-98.0) fL MCH 27.9 (27.0-33.0) pg MCHC 32.0 (31.0-35.0) g/dl RDW 13.1 (11.0-16.0) % Plt Count 242 (160-400) X10*3/uL MPV 9.9 (9.4-12.3) fL Immature Gran % (Auto) 0.4 (0.0-0.4) % Neut % (Auto) 64.5 (45-73) % Lymph % (Auto) 23.3 (20-40) % [place] % (Auto) 8.3 (2-11) % Eos % (Auto) 2.9 (0-4) % Baso % (Auto) 0.6 (0-2) % Lymph # (Auto) 2.1 (1.2-4.9) X10*3/uL [place] # (Auto) 0.7 (0.1-1.2) X10*3/uL Eos # (Auto) 0.3 (0.0-0.4) X10*3/uL Baso # (Auto) 0.1 (0.0-0.2) X10*3/uL Abs Immat Gran (auto) 0.04 H (0.00-0.03) X10*3/uL Absolute Neuts (auto) 5.7 (2.0-8.3) x10*3/uL Absolute Nucleated RBC 0.000 (0.0-0.012) X10*3/uL Nucleated RBC % (auto) 0.0 (0.0-0.2) /100WBC Sodium 140 (135-145) mmol/L Potassium 3.7 (3.3-5.1) mmol/L Chloride 105 (96-108) mmol/L Carbon Dioxide 22 (22-29) mmol/L Anion Gap 17 (12-20) BUN 10 (9-16) mg/dL Creatinine 0.78 (0.5-1.4) mg/dL Estim Creat Clear Calc 107.6 Estimated GFR > 60 Random Glucose 110 (60-115) mg/dL Calcium 9.4 D (8.4-10.2) mg/dL Total Bilirubin 0.2 (0.0-1.0) mg/dL AST 15 (5-31) U/L ALT 13 (0-31) U/L Alkaline Phosphatase 122 H (39-117) U/L Total Protein 6.9 (6.5-8.0) g/dL Albumin 4.3 (3.5-5.0) g/dL Urine Color Urine Appearance Urine pH (5.0-9.0) Ur Specific [place] (1.005-1.025) Urine Protein (Neg-Trace) mg/dL Urine Glucose (UA) (Negative) mg/dL Urine Ketones (Negative) mg/dL Urine Blood (Negative) Urine Nitrite (Negative) Ur Leukocyte Esterase (Negative) Urine RBC (0-2) /HPF Urine WBC (0-5) /HPF Ur Squamous Epith Cells (0-2) /HPF Urine Bacteria (None Seen) Hyaline Casts (0-2) /LPF Salicylates < 5.0 L (15-30) mg/dL Urine Opiates Screen (Not Detect) Urine Fentanyl Screen (Not Detect) Acetaminophen < 1 (<30) mcg/mL Ur Barbiturates Screen (Not Detect) Ur Phencyclidine Scrn (Not Detect) Ur Amphetamines Screen (Not Detect) U Benzodiazepines Scrn (Not Detect) Urine Cocaine Screen (Not Detect) U Marijuana (THC) Screen (Not Detect) COVID-19 (NICK) Negative (Negative) COVID-19 Clin Com See Note 07/09/22 07/09/22 Range/Units 21:37 21:37 WBC (4.8-10.8) X10*3/uL RBC (4.20-5.50) X10*6/uL Hgb (12.0-16.0) g/dl Hct (37.0-47.0) % MCV (80.0-98.0) fL MCH (27.0-33.0) pg MCHC (31.0-35.0) g/dl RDW (11.0-16.0) % Plt Count (160-400) X10*3/uL MPV (9.4-12.3) fL Immature Gran % (Auto) (0.0-0.4) % Neut % (Auto) (45-73) % Lymph % (Auto) (20-40) % [place] % (Auto) (2-11) % Eos % (Auto) (0-4) % Baso % (Auto) (0-2) % Lymph # (Auto) (1.2-4.9) X10*3/uL [place] # (Auto) (0.1-1.2) X10*3/uL Eos # (Auto) (0.0-0.4) X10*3/uL Baso # (Auto) (0.0-0.2) X10*3/uL Abs Immat Gran (auto) (0.00-0.03) X10*3/uL Absolute Neuts (auto) (2.0-8.3) x10*3/uL Absolute Nucleated RBC (0.0-0.012) X10*3/uL Nucleated RBC % (auto) (0.0-0.2) /100WBC Sodium (135-145) mmol/L Potassium (3.3-5.1) mmol/L Chloride (96-108) mmol/L Carbon Dioxide (22-29) mmol/L Anion Gap (12-20) BUN (9-16) mg/dL Creatinine (0.5-1.4) mg/dL Estim Creat Clear Calc Estimated GFR Random Glucose (60-115) mg/dL Calcium (8.4-10.2) mg/dL Total Bilirubin (0.0-1.0) mg/dL AST (5-31) U/L ALT (0-31) U/L Alkaline Phosphatase (39-117) U/L Total Protein (6.5-8.0) g/dL Albumin (3.5-5.0) g/dL Urine Color Yellow Urine Appearance Cloudy Urine pH 6.0 (5.0-9.0) Ur Specific [place] <= 1.005 (1.005-1.025) Urine Protein Negative (Neg-Trace) mg/dL Urine Glucose (UA) Negative (Negative) mg/dL Urine Ketones Negative (Negative) mg/dL Urine Blood Negative (Negative) Urine Nitrite Negative (Negative) Ur Leukocyte Esterase Trace H (Negative) Urine RBC 0-2 (0-2) /HPF Urine WBC 0-5 (0-5) /HPF Ur Squamous Epith Cells >20 (0-2) /HPF Urine Bacteria 1+ (None Seen) Hyaline Casts 0-2 (0-2) /LPF Salicylates (15-30) mg/dL Urine Opiates Screen Not Detected (Not Detect) Urine Fentanyl Screen Not Detected (Not Detect) Acetaminophen (<30) mcg/mL Ur Barbiturates Screen Not Detected (Not Detect) Ur Phencyclidine Scrn Not Detected (Not Detect) Ur Amphetamines Screen Not Detected (Not Detect) U Benzodiazepines Scrn Not Detected (Not Detect) Urine Cocaine Screen Not Detected (Not Detect) U Marijuana (THC) Screen Not Detected (Not Detect) COVID-19 (NICK) (Negative) COVID-19 Clin Com Discharge Plan Discharge Clinical Impression: Major depression, Suicidal ideation Patient Disposition: Home, Self-Care Instructions: Depression (ED), Help Prevent Suicide (ED) Additional Instructions: Follow-up with outpatient psychiatry as scheduled. Thank you for choosing this emergency department for evaluation. Please follow-up with primary care physician as needed. Return to the emergency department for any new, concerning, or worsening symptoms. Prescriptions: No Action metformin 500 mg tablet 1 tab PO BID atorvastatin 10 mg tablet 1 tab PO DAILY verapamil 240 mg tablet extended release 240 mg PO BEDTIME montelukast 10 mg tablet 1 tab PO BEDTIME fluticasone propionate [Flovent HFA] 110 mcg/actuation HFA aerosol inhaler 2 puff inhalation BID albuterol sulfate [Ventolin HFA] 90 mcg/actuation HFA aerosol inhaler 2 puff inhalation Q4H PRN (Reason: Shortness Of Breath) trazodone 150 mg tablet 150 mg PO BEDTIME benztropine 1 mg tablet 1 mg PO DAILY docusate sodium [Colace] 100 mg capsule 100 mg PO BID Qty: 60 0RF hydroxyzine HCl 50 mg tablet 2 tab PO BID chlorpromazine 25 mg tablet 1 tab PO TID cephalexin 500 mg capsule 500 mg PO Q6H 7 Days Qty: 28 0RF nystatin 100,000 unit/gram ointment 1 appl topical QID Qty: 30 0RF fluoxetine 20 mg Capsule 40 mg PO DAILY 30 Days Qty: 60 0RF prazosin 1 mg Capsule 4 mg PO BEDTIME 30 Days Qty: 120 0RF Protocol: Hold for SBP< HOLD for SBP < : 90 ondansetron 4 mg tablet,disintegrating 4 mg PO Q6-8H PRN (Reason: nausea and vomiting) Qty: 14 0RF fluphenazine HCl 2.5 mg tablet 1 tab PO BEDTIME fluphenazine HCl 5 mg tablet 1 tab PO BEDTIME Interventions: ED Discharge Assessment Last Done: 07/09/22 22:35 Discharge Date/Time: 07/09/22 22:40
[2022-07-09] MEDS: LORazepam 1 MG TABLET PO (21:01)
[2022-07-09 21:42] LABS: MANUAL DIFF FLAG NO
[2022-07-09 21:44] LABS: COVID-19 Test Negative (Negative)
[2022-07-09 21:45] LABS: Appearance Urine Cloudy; Color Urine Yellow; Glucose Urine UA Negative (Negative); Leukocyte Esterase Urine Trace (Negative); Nitrite Urine Negative (Negative); Specific Gravity - Urine <= 1.005 (1.005-1.025); UMIC TRIGGER UA YES; Urine Blood Negative (Negative); Urine Ketones Negative (Negative); Urine Protein Negative (Neg-Trace)
[2022-07-09 21:48] LABS: Basophils Absolute Auto 0.1 X10*3/uL (0.0-0.2); Basophils Percent Auto 0.6 % (0-2); Eosinophils Absolute Auto 0.3 X10*3/uL (0.0-0.4); Eosinophils Percent Auto 2.9 % (0-4); Hematocrit 34.1 % (37.0-47.0); Hemoglobin 10.9 g/dl (12.0-16.0); Imm Gran Abs Auto 0.04 X10*3/uL (0.00-0.03); Imm Gran Pct Auto 0.4 % (0.0-0.4); Lymphocytes Absolute Auto 2.1 X10*3/uL (1.2-4.9); Lymphocytes Percent Auto 23.3 % (20-40); Mean Corpuscular Hemoglobin 27.9 pg (27.0-33.0); Mean Corpuscular Volume 87.2 fL (80.0-98.0); Mean Platelet Volume 9.9 fL (9.4-12.3); Monocytes Absolute Auto 0.7 X10*3/uL (0.1-1.2); Monocytes Percent Auto 8.3 % (2-11); Neutrophils Absolute Auto 5.7 x10*3/uL (2.0-8.3); Neutrophils Percent Auto 64.5 % (45-73); Platelet Count 242 X10*3/uL (160-400); Red Blood Count 3.91 X10*6/uL (4.20-5.50); Red Cell Distribution Width 13.1 % (11.0-16.0); White Blood Count 8.9 X10*3/uL (4.8-10.8)
[2022-07-09 22:07] LABS: Acetaminophen LAB < 1 mcg/mL (<30); Alanine Aminotransferase 13 U/L (0-31); Albumin Level 4.3 g/dL (3.5-5.0); Alkaline Phosphatase 122 U/L (39-117); Anion Gap 17 (12-20); Aspartate Amino Transferase 15 U/L (5-31); Bilirubin Total 0.2 mg/dL (0.0-1.0); Blood Urea Nitrogen 10 mg/dL (9-16); Calcium 9.4 mg/dL (8.4-10.2); Carbon Dioxide 22 mmol/L (22-29); Chloride 105 mmol/L (96-108); Creatinine Clr Calc Pharmacy 107.6; Estimated Glomerular Filt Rate > 60; Glucose Random 110 mg/dL (60-115); Potassium 3.7 mmol/L (3.3-5.1); Salicylate < 5.0 mg/dL (15-30); Sodium 140 mmol/L (135-145); Total Protein 6.9 g/dL (6.5-8.0)
[2022-07-09 22:08] LABS: Amphetamine Screen Urine Not Detected (Not Detect); Barbiturates, Urine Not Detected (Not Detect); Benzodiazepines Screen Urine Not Detected (Not Detect); Cannabinoid Screen Urine Not Detected (Not Detect); Cocaine Screen Urine Not Detected (Not Detect); Fentanyl, urine Not Detected (Not Detect); Opiate Screen Urine Not Detected (Not Detect); Phencyclidine Screen Urine Not Detected (Not Detect)
[2022-07-09 22:23] LABS: Bacteria Urine 1+ (None Seen); Hyaline Casts Urine 0-2 /LPF (0-2); RBC Urine 0-2 /HPF (0-2); Squamous Epithelial Cell Urine >20 /HPF (0-2); WBC Urine 0-5 /HPF (0-5)
--- NOTE | 2022-07-09 22:33 | MHC.CARE ---
Care Team met with pt and she reported having a difficult time due to [facility]H telling her to self harm. She mentioned she sometimes has SI, however, she stated she is fine at the moment as she want to return to her custodial. She denied having SI/HI/VH. She reported AH are calm and she will ignore the voices. Care Team spoke to TIMI Harper and she was in agreement with pt returning home. Care Team spoke to [facility] Nayla [phone] and she stated she will personally milk pickup driver the pt in 15 minutes.
== END 2022-07-09 22:40 | disposition home or self-care (01) ==
PROVIDERS: Nurse Practitioner Family; Emergency Provider Emergency Medicine; PCP Nurse Practitioner Family
DX: F33.1 Major depressive disorder, recurrent, moderate (principal); R45.851 Suicidal ideations; R44.0 Auditory hallucinations; F17.210 Nicotine dependence, cigarettes, uncomplicated; Z20.822 Contact with and (suspected) exposure to COVID-19; Z71.6 Tobacco abuse counseling; Z79.899 Other long term (current) drug therapy
CPT/HCPCS: 36415; 80053; 80143; 80179; 80307; 81001; 85025; 87635; 99282; 99285

== ENCOUNTER 2022-07-13 19:47 | Emergency (ER) | payer MEDICARE, MEDICAID, SELFPAY ==
[2022-07-13 20:00] VITALS: BP 178/75; PULSE 89; RESP 17; TEMP 36.8; O2SAT 97; BMI 41.6
--- NOTE | 2022-07-13 20:03 | ED_ITS ---
HPI - Psych General Chief Complaint: Psychiatric Symptoms Stated Complaint: crisis Time Seen by Provider: 07/13/22 20:01 Source: patient and EMS Mode of arrival: EMS Limitations: no limitations History of Present Illness HPI Narrative: patient comes to the emergency room complaining of altering a hallucinations, states the voices are telling her to cut herself and overdose. Patient has been seen here multiple doses for the same complaint. Patient states that she did not cut herself today or ingested any medications or substances. Related Data Home Medications Medication Instructions Recorded Confirmed atorvastatin 10 mg tablet 1 tab PO DAILY 05/29/21 07/13/22 fluticasone propionate 110 2 puff inhalation BID 05/29/21 07/13/22 mcg/actuation HFA aerosol inhaler (Flovent HFA) metformin 500 mg tablet 1 tab PO BID 05/29/21 07/13/22 montelukast 10 mg tablet 1 tab PO BEDTIME 05/29/21 07/13/22 verapamil 240 mg tablet,extended 240 mg PO BEDTIME 05/29/21 07/13/22 release albuterol sulfate 90 mcg/actuation 2 puff inhalation Q4H PRN 06/15/21 07/13/22 aerosol inhaler (Ventolin HFA) Shortness Of Breath trazodone 150 mg tablet 150 mg PO BEDTIME 11/05/21 07/13/22 benztropine 1 mg tablet 1 mg PO DAILY 12/26/21 07/13/22 fluphenazine HCl 2.5 mg tablet 1 tab PO BEDTIME 03/19/22 07/13/22 fluphenazine HCl 5 mg tablet 1 tab PO BEDTIME 03/19/22 07/13/22 chlorpromazine 25 mg tablet 1 tab PO TID 06/17/22 07/13/22 hydroxyzine HCl 50 mg tablet 2 tab PO BID 06/17/22 07/13/22 Previous Rx's Medication Instructions Recorded fluoxetine 20 mg capsule 40 mg PO DAILY 30 days #60 caps 09/29/21 prazosin 1 mg capsule 4 mg PO BEDTIME 30 days #120 caps 10/18/21 ondansetron 4 mg disintegrating 4 mg PO Q6-8H PRN nausea and 02/04/22 tablet vomiting #14 tabs docusate sodium 100 mg capsule 100 mg PO BID Constipation #60 caps 02/07/22 (Colace) nystatin 100,000 unit/gram topical 1 appl topical QID tinea Cruris 06/30/22 ointment #30 grams Allergies Allergy/AdvReac Type Severity Reaction Status Date / Time Fish Containing Products Allergy Severe ANAPHYLAXIS Verified 05/06/22 20:47 codeine [Codeine] Allergy Unknown RASH Verified 05/06/22 20:47 Penicillins Allergy Unknown RASH Verified 05/06/22 20:47 prednisone [Prednisone] Allergy Unknown RASH Verified 05/06/22 20:47 Sulfa (Sulfonamide Allergy Unknown RASH Verified 05/06/22 20:47 Antibiotics) [Sulfa (Sulfonamides)] azithromycin [AZITHROMYCIN] AdvReac Severe RASH Verified 05/06/22 20:47 ziprasidone [From Geodon] AdvReac Intermediate dysuria, Verified 05/06/22 20:47 rash Review of Systems Review of Systems: Constitutional : No Weight loss, No Fever, No Chills, No Night Sweats, No Fatigue, No Malaise ENT/Mouth : No Hearing loss, No Ear Pain, No Nasal Congestion, No Sinus Pain, No Hoarseness, No sore throat, No Rhinorrhea, No Swallowing Difficulty Eyes: No Eye Pain, No Swelling, No Redness, No Foreign Body, No Discharge, No Vision Changes Cardiovascular : No Chest Pain, No SOB, No Dyspnea on Exertion, No Orthopnea, No Edema, No Palpitations Respiratory : No Cough, No Sputum, No Wheezing, No Smoke Exposure, No Dyspnea Gastrointestinal : No Nausea, No Vomiting, No Diarrhea, No Constipation, No abdominal Pain, No Hematochezia, No Melena Genitourinary : no irregular bleeding, No Dysuria, No Urinary Frequency, No Hematuria, No Urinary Incontinence, No Urgency, No Flank Pain, No Urinary Flow Changes, No Hesitancy Musculoskeletal : No joint pain, No Myalgias, No Joint Swelling Skin : No Skin Lesions, No rash Neuro : No Weakness, No Numbness, No Paresthesias, No Loss of Consciousness, No Dizziness, No Headache Psych : Complaining of anxiety, no SI or HI, complaining of auditory hallucinations Heme/Lymph: No Bruising, No Bleeding,No Lymphadenopathy Endocrine : No Polyuria, No Polydipsia, No Temperature Intolerance PMFSH Past Medical History Medical History Acetaminophen overdose Borderline personality disorder Bronchitis Depression Diabetes type 2, controlled GERD (gastroesophageal reflux disease) History of attempted suicide History of non-suicidal self-harm Hyperlipidemia Hypomagnesemia Major depression MDD (major depressive disorder), recurrent episode, severe Mood disorder Overdose PTSD (post-traumatic stress disorder) Suicide attempt Suicide attempt by acetaminophen overdose Social History Social History Household Members: None Household Members Other:: Patient lives in halfway. 4 in total live in halfway. Housing: Other Housing Other:: halfway Do you presently have visiting nurse or other home services: No Unable to assess alcohol history related to: Unknown Alcohol intake: never Patient Tobacco Use Status: Current everyday Tobacco user Tobacco use type: Cigarette Cigarette Packs Per Day: 1 Cigarettes Per Day: 20 Years Smoked: 20 e-Cigarette/Vaping Use: Never Used Substance Use Type: Marijuana Advance Directives: No Advance Directives Information Provided: No service: No Current occupational status: disabled Sexual orientation: Don't Know Physical Exam Vital Signs: Vital Signs: Last Vital Signs Temp 98.3 F 07/13/22 20:00 Pulse 89 07/13/22 20:00 Resp 17 07/13/22 20:00 BP 178/75 H 07/13/22 20:00 Pulse Ox 97 07/13/22 20:00 O2 Del Method 07/13/22 20:00 BMI result Body Mass Index 41.6 Const: Other: Appearance: Alert. Oriented X3. seems anxious Eyes: Pupils equal, round and reactive to light. ENT: Pharynx normal. Neck: Normal inspection. Neck supple. No lymph nodes noted. No crepitus CVS: Normal heart rate and rhythm. Pulses normal. Normal S1 and S2 Respiratory: No respiratory distress. Breath sounds normal. No Wheezing. No rales Abdomen: Soft and nontender. No rigidity. No distention. Skin: Skin warm and dry. Normal skin color. Normal skin turgor. Extremities: No lower extremity edema. No Lacerations. No Rash Neuro: Oriented X 3. No motor deficit. No sensory deficit. Moving all extremities. No slurred speech. CN 2 through 12 grossly intact Psych: anxious, cooperative Course Course Course Narrative: [facility]. Physician observationally started at 20:00 21:14, patient no longer feeling anxious, [facility] evaluated the patient, patient feels ready to be discharged back home [facility] Psych Lab Data Labs: Lab Results 07/13/22 07/13/22 07/13/22 Range/Units 20:17 20:17 20:18 Urine Color Urine Appearance Urine pH (5.0-9.0) Ur Specific [place] (1.005-1.025) Urine Protein (Neg-Trace) mg/dL Urine Glucose (UA) (Negative) mg/dL Urine Ketones (Negative) mg/dL Urine Blood (Negative) Urine Nitrite (Negative) Ur Leukocyte Esterase (Negative) Urine Test NEGATIVE (NEGATIVE) Urine Opiates Screen Not Detected (Not Detect) Urine Fentanyl Screen Not Detected (Not Detect) Ur Barbiturates Screen Not Detected (Not Detect) Ur Phencyclidine Scrn Not Detected (Not Detect) Ur Amphetamines Screen Not Detected (Not Detect) U Benzodiazepines Scrn Not Detected (Not Detect) Urine Cocaine Screen Not Detected (Not Detect) U Marijuana (THC) Screen Not Detected (Not Detect) COVID-19 (NICK) Negative (Negative) COVID-19 [place] Com See Note 07/13/22 Range/Units 20:18 Urine Color Yellow Urine Appearance Clear Urine pH 6.0 (5.0-9.0) Ur Specific [place] <= 1.005 (1.005-1.025) Urine Protein Negative (Neg-Trace) mg/dL Urine Glucose (UA) 500 H (Negative) mg/dL Urine Ketones Negative (Negative) mg/dL Urine Blood Negative (Negative) Urine Nitrite Negative (Negative) Ur Leukocyte Esterase Negative (Negative) Urine Test (NEGATIVE) Urine Opiates Screen (Not Detect) Urine Fentanyl Screen (Not Detect) Ur Barbiturates Screen (Not Detect) Ur Phencyclidine Scrn (Not Detect) Ur Amphetamines Screen (Not Detect) U Benzodiazepines Scrn (Not Detect) Urine Cocaine Screen (Not Detect) U Marijuana (THC) Screen (Not Detect) COVID-19 (NICK) (Negative) COVID-19 Clin Com Discharge Plan Discharge Clinical Impression: Anxiety Patient Disposition: Home, Self-Care Instructions: Anxiety (ED) Additional Instructions: Please follow-up with your primary care physician tomorrow. If you have any worsening or new symptoms, please return to the emergency room or call 911 Prescriptions: No Action metformin 500 mg tablet 1 tab PO BID atorvastatin 10 mg tablet 1 tab PO DAILY verapamil 240 mg tablet extended release 240 mg PO BEDTIME montelukast 10 mg tablet 1 tab PO BEDTIME fluticasone propionate [Flovent HFA] 110 mcg/actuation HFA aerosol inhaler 2 puff inhalation BID albuterol sulfate [Ventolin HFA] 90 mcg/actuation HFA aerosol inhaler 2 puff inhalation Q4H PRN (Reason: Shortness Of Breath) trazodone 150 mg tablet 150 mg PO BEDTIME benztropine 1 mg tablet 1 mg PO DAILY docusate sodium [Colace] 100 mg capsule 100 mg PO BID Qty: 60 0RF hydroxyzine HCl 50 mg tablet 2 tab PO BID chlorpromazine 25 mg tablet 1 tab PO TID nystatin 100,000 unit/gram ointment 1 appl topical QID Qty: 30 0RF fluoxetine 20 mg Capsule 40 mg PO DAILY 30 Days Qty: 60 0RF prazosin 1 mg Capsule 4 mg PO BEDTIME 30 Days Qty: 120 0RF Protocol: Hold for SBP< HOLD for SBP < : 90 ondansetron 4 mg tablet,disintegrating 4 mg PO Q6-8H PRN (Reason: nausea and vomiting) Qty: 14 0RF fluphenazine HCl 2.5 mg tablet 1 tab PO BEDTIME fluphenazine HCl 5 mg tablet 1 tab PO BEDTIME
[2022-07-13 20:27] LABS: UPreg QC Valid YES; Urine Pregnancy NEGATIVE (NEGATIVE)
[2022-07-13 20:27] LABS: Appearance Urine Clear; Color Urine Yellow; Glucose Urine UA 500 mg/dL (Negative); Leukocyte Esterase Urine Negative (Negative); Nitrite Urine Negative (Negative); Specific Gravity - Urine <= 1.005 (1.005-1.025); Urine Blood Negative (Negative); Urine Ketones Negative (Negative); Urine Protein Negative (Neg-Trace)
[2022-07-13 20:39] LABS: COVID-19 Test Negative (Negative); IDNOW Serial# 55D5AD1C
[2022-07-13 20:41] LABS: Amphetamine Screen Urine Not Detected (Not Detect); Barbiturates, Urine Not Detected (Not Detect); Benzodiazepines Screen Urine Not Detected (Not Detect); Cannabinoid Screen Urine Not Detected (Not Detect); Cocaine Screen Urine Not Detected (Not Detect); Fentanyl, urine Not Detected (Not Detect); Opiate Screen Urine Not Detected (Not Detect); Phencyclidine Screen Urine Not Detected (Not Detect)
--- NOTE | 2022-07-13 20:51 | MHC.CARE ---
Care Team met with pt in 4 due to [facility] telling her to cut her throat. She reported the voices were really loud but is feeling better now. She denied SI/HI/VH. She stated she will ignore the voice by staying busy watching TV or talking to staff. She stated she started working at the [employer] in [place].
== END 2022-07-13 21:17 | disposition home or self-care (01) ==
PROVIDERS: Emergency Provider Emergency Medicine; PCP Nurse Practitioner Family
DX: F41.9 Anxiety disorder, unspecified (principal); Z20.822 Contact with and (suspected) exposure to COVID-19; F32.9 Major depressive disorder, single episode, unspecified; F60.3 Borderline personality disorder; E11.9 Type 2 diabetes mellitus without complications; E78.5 Hyperlipidemia, unspecified; F43.10 Post-traumatic stress disorder, unspecified; F17.210 Nicotine dependence, cigarettes, uncomplicated; F12.90 Cannabis use, unspecified, uncomplicated; E66.9 Obesity, unspecified; Z68.41 Body mass index [BMI] 40.0-44.9, adult; Z91.51 Personal history of suicidal behavior; Z79.84 Long term (current) use of oral hypoglycemic drugs; Z79.02 Long term (current) use of antithrombotics/antiplatelets; Z79.899 Other long term (current) drug therapy
CPT/HCPCS: 80307; 81003; 81025; 87635; 99282; 99284

== ENCOUNTER 2022-07-15 19:10 | Emergency (ER) | payer MEDICARE, MEDICAID, SELFPAY ==
[2022-07-15 19:20] VITALS: BP 148/91; PULSE 102; RESP 18; TEMP 37.2; O2SAT 97; BMI 40.3
--- NOTE | 2022-07-15 19:21 | ED_ITS ---
HPI - General Adult General Chief complaint: Psychiatric Symptoms Stated complaint: crisis Time Seen by Provider: 07/15/22 19:21 Source: patient and EMS Mode of arrival: EMS Limitations: no limitations History of Present Illness HPI narrative: Patient is a 46 year old female presenting to the emergency department today with increased anxiety and hearing more voices than usual. Patient states that she feels much more anxious and like she is hearing a lot of voices, more than usual. Patient denies any suicidal ideation, homicidal ideation, dizziness, lightheadedness, abdominal pain, nausea, vomiting, fever, chills, blurry vision, double vision, loss of vision, chest pain, difficulty breathing, shortness of breath, back pain, night sweats, pain with urination, increased urinary frequency, increased urinary urgency, blood in her urine or stool, syncope or a near syncopal episode, recent trauma or falls, bowel incontinence, bladder incontinence, bowel retention, bladder retention, or any other complaints at this time. Onset (ago): day(s) Severity: mild Relieving factors: none Exacerbating factors: none Associated symptoms: denies other symptoms Treatments prior to arrival: none Related Data Home Medications Medication Instructions Recorded Confirmed atorvastatin 10 mg tablet 1 tab PO DAILY 05/29/21 07/15/22 fluticasone propionate 110 2 puff inhalation BID 05/29/21 07/15/22 mcg/actuation HFA aerosol inhaler (Flovent HFA) metformin 500 mg tablet 1 tab PO BID 05/29/21 07/15/22 montelukast 10 mg tablet 1 tab PO BEDTIME 05/29/21 07/15/22 verapamil 240 mg tablet,extended 240 mg PO BEDTIME 05/29/21 07/15/22 release albuterol sulfate 90 mcg/actuation 2 puff inhalation Q4H PRN 06/15/21 07/15/22 aerosol inhaler (Ventolin HFA) Shortness Of Breath trazodone 150 mg tablet 150 mg PO BEDTIME 11/05/21 07/15/22 benztropine 1 mg tablet 1 mg PO DAILY 12/26/21 07/15/22 fluphenazine HCl 2.5 mg tablet 1 tab PO BEDTIME 03/19/22 07/15/22 fluphenazine HCl 5 mg tablet 1 tab PO BEDTIME 03/19/22 07/15/22 chlorpromazine 25 mg tablet 1 tab PO TID 06/17/22 07/15/22 hydroxyzine HCl 50 mg tablet 2 tab PO BID 06/17/22 07/15/22 Previous Rx's Medication Instructions Recorded fluoxetine 20 mg capsule 40 mg PO DAILY 30 days #60 caps 09/29/21 prazosin 1 mg capsule 4 mg PO BEDTIME 30 days #120 caps 10/18/21 ondansetron 4 mg disintegrating 4 mg PO Q6-8H PRN nausea and 02/04/22 tablet vomiting #14 tabs docusate sodium 100 mg capsule 100 mg PO BID Constipation #60 caps 02/07/22 (Colace) nystatin 100,000 unit/gram topical 1 appl topical QID tinea Cruris 06/30/22 ointment #30 grams Allergies Allergy/AdvReac Type Severity Reaction Status Date / Time Fish Containing Products Allergy Severe ANAPHYLAXIS Verified 05/06/22 20:47 codeine [Codeine] Allergy Unknown RASH Verified 05/06/22 20:47 Penicillins Allergy Unknown RASH Verified 05/06/22 20:47 prednisone [Prednisone] Allergy Unknown RASH Verified 05/06/22 20:47 Sulfa (Sulfonamide Allergy Unknown RASH Verified 05/06/22 20:47 Antibiotics) [Sulfa (Sulfonamides)] azithromycin [AZITHROMYCIN] AdvReac Severe RASH Verified 05/06/22 20:47 ziprasidone [From Geodon] AdvReac Intermediate dysuria, Verified 05/06/22 20:47 rash Review of Systems Constitutional: Constitutional: Reports no additional constitutional complaints, Denies chills, Denies fever(s) and Denies night sweats Eyes: Eyes: Reports no additional eye complaints, Denies blurry vision, Denies change in vision, Denies diplopia, Denies eye discharge, Denies loss of vision and Denies eye pain ENT: Denies dizziness Cardiovascular: Cardiovascular: Reports no additional cardiovascular complaint s, Denies chest pain, Denies lightheadedness, Denies Loss of Consciousness and Denies dyspnea Respiratory: Respiratory: Reports no additional respiratory complaints and Denies dyspnea Gastrointestinal: Gastrointestinal: Reports no additional gastrointestinal complaints, Denies abdominal pain, Denies melena, Denies hematochezia, Denies change in bowel habits and Denies change in stool character Genitourinary: Genitourinary: Denies hematuria, Denies urinary frequency, Denies dysuria, Denies urinary incontinence, Denies urinary hesitancy and Denies urinary urgency Musculoskeletal: Musculoskeletal: Reports no additional musculoskeletal complaints, Denies numbness and Denies tingling Neurologic: Denies dizziness, Denies loss of vision, Denies numbness and Denies tingling Psychiatric: Psychiatric: Reports no additional psychiatric complaints, Reports anxiety and Reports auditory hallucinations Endocrine: Endocrine: Reports no additional endocrine complaints Hematologic/Lymphatic: Hematologic/Lymphatic: Reports no additional hematologic/lymphatic complaints Allergic/Immunologic: Allergic/Immunologic: Reports no additional aller gic/immunologic complaints PMFSH Past Medical History Attestation statement: The following information was validated with the patient. Source: old records reviewed Medical History Acetaminophen overdose Borderline personality disorder Bronchitis Depression Diabetes type 2, controlled GERD (gastroesophageal reflux disease) History of attempted suicide History of non-suicidal self-harm Hyperlipidemia Hypomagnesemia Major depression MDD (major depressive disorder), recurrent episode, severe Mood disorder Overdose PTSD (post-traumatic stress disorder) Suicide attempt Suicide attempt by acetaminophen overdose Social History Social History Household Members: None Household Members Other:: Patient lives in [facility]pc. 4 in total live in [facility]. Housing: Other Housing Other:: [facility] Do you presently have visiting nurse or other home services: No Unable to assess alcohol history related to: Unknown Alcohol intake: never Patient Tobacco Use Status: Current everyday Tobacco user Tobacco use type: Cigarette Cigarette Packs Per Day: 1 Cigarettes Per Day: 20 Years Smoked: 20 e-Cigarette/Vaping Use: Never Used Substance Use Type: Marijuana Advance Directives: No Advance Directives Information Provided: No service: No Current occupational status: disabled Sexual orientation: Don't Know Physical Exam ED Vital Signs: Vital Signs - 24 hr 07/15/22 19:20 Temperature 98.9 F Pulse Rate 102 H Respiratory Rate 18 Blood Pressure 148/91 H Pulse Oximetry 97 Oxygen Delivery Method Room Air BMI result Body Mass Index 40.3 Const General: cooperative, no acute distress, alert and awake Nutritional Appearance: well nourished Orientation/consciousness: patient oriented x3 Limitations: no limitations HENMT Head: Yes normal to inspection and Yes atraumatic Ears: hearing grossly normal bilaterally and external ears normal General nose exam: Normal external nose present, no nasal discharge noted and no epistaxis Face and sinus: Yes normal facial exam, No abrasion and No laceration Mouth: Normal oral and palatal mucosa present, no drooling and no muffled voice Eyes General: appearance normal, both eyes and all related structures Periorbital: periorbital findings normal Eyelids: Yes eyelids normal Conjunctivae: conjunctivae normal Pupils: Equal, round and reactive pupils present EOM: EOMs intact bilaterally Neck Neck: Yes normal visual inspection, Yes full ROM and Yes no lymphadenopathy Chest Chest palpation & inspection: normal inspection of the chest Resp Effort & Inspection: normal respiratory effort and able to speak in complete sentences Auscultation: clear to auscultation bilaterally Cardio Rate: regular rate Rhythm: regular rhythm GI Inspection: Yes normal to inspection Neuro General: patient oriented x3 and moves all extremities Cranial nerves: Yes Equal, round and reactive pupils present Cognition (Neuro): normal cognition Motor exam (neuro): 5/5 motor strength present throughout Sensory Exam: Normal double simultaneous stimulation for sensation Coordination: [id number]-[id number] test normal Extrem General: Yes normal to inspection, Yes full ROM and Yes capillary refill normal Psych Appearance: grossly normal Mental Status: mental status grossly normal Affect: normal affect Attitude: cooperative Thought process: Normal thought process present Thought content: Normal thought content present Insight: Good insight present (Psych) Medical Decision Making [facility] Narrative Medical decision making narrative: Patient is a 46 year old female presenting to the emergency department today with increased anxiety and increased hearing of voices. Patient's physical exam was unremarkable. Patient's blood work was unremarkable. Patient's urine showed no acute process. Patient requested to leave when she began speaking with crisis personnel. Patient again denied any SI or HI. I explained my physical exam findings as well as all test results to the patient. I answered all questions asked by the patient. I stressed the importance of the patient taking her medication as prescribed. I stressed the importance of the patient following up with her primary care provider. I stressed the importance of the patient returning to the emergency department immediately if her symptoms were to worsen or if she were to develop any dizziness, shortness of breath, difficulty b reathing, chest pain, blurry vision, loss of vision, nausea, vomiting, abdominal pain, fever, chills, back pain, or any other complaints. Patient verbalized agreement and understanding with this treatment plan and discharge. Medical Records Medical records reviewed: Yes I reviewed the patient's medical records. Lab Data Lab results reviewed: Yes I reviewed the patient's lab results. Result diagrams: 07/15/22 20:11 07/15/22 20:11 Labs: Lab Results 07/15/22 07/15/22 07/15/22 Range/Units 19:31 19:31 19:31 WBC (4.8-10.8) X10*3/uL RBC (4.20-5.50) X10*6/uL Hgb (12.0-16.0) g/dl Hct (37.0-47.0) % MCV (80.0-98.0) fL MCH (27.0-33.0) pg MCHC (31.0-35.0) g/dl RDW (11.0-16.0) % Plt Count (160-400) X10*3/uL MPV (9.4-12.3) fL Immature Gran % (Auto) (0.0-0.4) % Neut % (Auto) (45-73) % Lymph % (Auto) (20-40) % [place] % (Auto) (2-11) % Eos % (Auto) (0-4) % Baso % (Auto) (0-2) % Lymph # (Auto) (1.2-4.9) X10*3/uL [place] # (Auto) (0.1-1.2) X10*3/uL Eos # (Auto) (0.0-0.4) X10*3/uL Baso # (Auto) (0.0-0.2) X10*3/uL Abs Immat Gran (auto) (0.00-0.03) X10*3/uL Absolute Neuts (auto) (2.0-8.3) x10*3/uL Absolute Nucleated RBC (0.0-0.012) X10*3/uL Nucleated RBC % (auto) (0.0-0.2) /100WBC Sodium (135-145) mmol/L Potassium (3.3-5.1) mmol/L Chloride (96-108) mmol/L Carbon Dioxide (22-29) mmol/L Anion Gap (12-20) BUN (9-16) mg/dL Creatinine (0.5-1.4) mg/dL Estim Creat Clear Calc Estimated GFR Random Glucose (60-115) mg/dL Calcium (8.4-10.2) mg/dL Magnesium (1.6-2.6) mg/dL Total Bilirubin (0.0-1.0) mg/dL AST (5-31) U/L ALT (0-31) U/L Alkaline Phosphatase (39-117) U/L Total Protein (6.5-8.0) g/dL Albumin (3.5-5.0) g/dL Urine Color Yellow Urine Appearance Clear Urine pH 5.5 (5.0-9.0) Ur Specific [place] 1.010 (1.005-1.025) Urine Protein Negative (Neg-Trace) mg/dL Urine Glucose (UA) Negative (Negative) mg/dL Urine Ketones Negative (Negative) mg/dL Urine Blood Negative (Negative) Urine Nitrite Negative (Negative) Ur Leukocyte Esterase Trace H (Negative) Urine RBC 0-2 (0-2) /HPF Urine WBC 0-5 (0-5) /HPF Ur Squamous Epith Cells 0-2 (0-2) /HPF Urine Bacteria None Seen (None Seen) Hyaline Casts 0-2 (0-2) /LPF Salicylates (15-30) mg/dL Urine Opiates Screen Not Detected (Not Detect) Urine Fentanyl Screen POSITIVE H (Not Detect) Ur Barbiturates Screen Not Detected (Not Detect) Ur Phencyclidine Scrn Not Detected (Not Detect) Ur Amphetamines Screen Not Detected (Not Detect) U Benzodiazepines Scrn Not Detected (Not Detect) Urine Cocaine Screen Not Detected (Not Detect) U Marijuana (THC) Screen Not Detected (Not Detect) COVID-19 (NICK) Negative (Negative) COVID-19 Clin Com See Note 07/15/22 07/15/22 Range/Units 20:11 20:11 WBC 8.2 (4.8-10.8) X10*3/uL RBC 4.12 L (4.20-5.50) X10*6/uL Hgb 11.5 L (12.0-16.0) g/dl Hct 35.7 L (37.0-47.0) % MCV 86.7 (80.0-98.0) fL MCH 27.9 (27.0-33.0) pg MCHC 32.2 (31.0-35.0) g/dl RDW 13.0 (11.0-16.0) % Plt Count 288 (160-400) X10*3/uL MPV 9.9 (9.4-12.3) fL Immature Gran % (Auto) 0.4 (0.0-0.4) % Neut % (Auto) 64.1 (45-73) % Lymph % (Auto) 24.5 (20-40) % [place] % (Auto) 7.6 (2-11) % Eos % (Auto) 2.9 (0-4) % Baso % (Auto) 0.5 (0-2) % Lymph # (Auto) 2.0 (1.2-4.9) X10*3/uL [place] # (Auto) 0.6 (0.1-1.2) X10*3/uL Eos # (Auto) 0.2 (0.0-0.4) X10*3/uL Baso # (Auto) 0.0 (0.0-0.2) X10*3/uL Abs Immat Gran (auto) 0.03 (0.00-0.03) X10*3/uL Absolute Neuts (auto) 5.3 (2.0-8.3) x10*3/uL Absolute Nucleated RBC 0.000 (0.0-0.012) X10*3/uL Nucleated RBC % (auto) 0.0 (0.0-0.2) /100WBC Sodium 139 (135-145) mmol/L Potassium 3.9 (3.3-5.1) mmol/L Chloride 104 (96-108) mmol/L Carbon Dioxide 21 L (22-29) mmol/L Anion Gap 18 (12-20) BUN 10 (9-16) mg/dL Creatinine 0.76 (0.5-1.4) mg/dL Estim Creat Clear Calc 112.5 Estimated GFR > 60 Random Glucose 108 (60-115) mg/dL Calcium 9.8 (8.4-10.2) mg/dL Magnesium 1.6 (1.6-2.6) mg/dL Total Bilirubin 0.3 (0.0-1.0) mg/dL AST 13 (5-31) U/L ALT 10 (0-31) U/L Alkaline Phosphatase 108 (39-117) U/L Total Protein 7.5 (6.5-8.0) g/dL Albumin 4.6 (3.5-5.0) g/dL Urine Color Urine Appearance Urine pH (5.0-9.0) Ur Specific [place] (1.005-1.025) Urine Protein (Neg-Trace) mg/dL Urine Glucose (UA) (Negative) mg/dL Urine Ketones (Negative) mg/dL Urine Blood (Negative) Urine Nitrite (Negative) Ur Leukocyte Esterase (Negative) Urine RBC (0-2) /HPF Urine WBC (0-5) /HPF Ur Squamous Epith Cells (0-2) /HPF Urine Bacteria (None Seen) Hyaline Casts (0-2) /LPF Salicylates < 5.0 L (15-30) mg/dL Urine Opiates Screen (Not Detect) Urine Fentanyl Screen (Not Detect) Ur Barbiturates Screen (Not Detect) Ur Phencyclidine Scrn (Not Detect) Ur Amphetamines Screen (Not Detect) U Benzodiazepines Scrn (Not Detect) Urine Cocaine Screen (Not Detect) U Marijuana (THC) Screen (Not Detect) COVID-19 (NICK) (Negative) COVID-19 Clin Com Discharge Plan Discharge Clinical Impression: Major depression Patient Disposition: Home, Self-Care Instructions: Depression (ED) Additional Instructions: Follow up with your primary care provider. Return to the emergency department immediately if your symptoms worsen or if you develop any dizziness, shortness of breath, difficulty breathing, chest pain, blurry vision, loss of vision, nausea, vomiting, abdominal pain, fever, chills, back pain, or any other complaints. Prescriptions: No Action metformin 500 mg tablet 1 tab PO BID atorvastatin 10 mg tablet 1 tab PO DAILY verapamil 240 mg tablet extended release 240 mg PO BEDTIME montelukast 10 mg tablet 1 tab PO BEDTIME fluticasone propionate [Flovent HFA] 110 mcg/actuation HFA aerosol inhaler 2 puff inhalation BID albuterol sulfate [Ventolin HFA] 90 mcg/actuation HFA aerosol inhaler 2 puff inhalation Q4H PRN (Reason: Shortness Of Breath) trazodone 150 mg tablet 150 mg PO BEDTIME benztropine 1 mg tablet 1 mg PO DAILY docusate sodium [Colace] 100 mg capsule 100 mg PO BID Qty: 60 0RF hydroxyzine HCl 50 mg tablet 2 tab PO BID chlorpromazine 25 mg tablet 1 tab PO TID nystatin 100,000 unit/gram ointment 1 appl topical QID Qty: 30 0RF fluoxetine 20 mg Capsule 40 mg PO DAILY 30 Days Qty: 60 0RF prazosin 1 mg Capsule 4 mg PO BEDTIME 30 Days Qty: 120 0RF Protocol: Hold for SBP< HOLD for SBP < : 90 ondansetron 4 mg tablet,disintegrating 4 mg PO Q6-8H PRN (Reason: nausea and vomiting) Qty: 14 0RF fluphenazine HCl 2.5 mg tablet 1 tab PO BEDTIME fluphenazine HCl 5 mg tablet 1 tab PO BEDTIME Referrals: Maribel Marquez NP [Primary Care Provider] - Interventions: ED Discharge Assessment Last Done: 07/15/22 20:31 Discharge Date/Time: 07/15/22 20:44 Print Language: Cambodian
[2022-07-15 19:41] LABS: Appearance Urine Clear; Color Urine Yellow; Glucose Urine UA Negative (Negative); Leukocyte Esterase Urine Trace (Negative); Nitrite Urine Negative (Negative); PH 5.5 (5.0-9.0); UMIC TRIGGER UA YES; Urine Blood Negative (Negative); Urine Ketones Negative (Negative); Urine Protein Negative (Neg-Trace)
[2022-07-15 19:46] LABS: Bacteria Urine None Seen (None Seen); Hyaline Casts Urine 0-2 /LPF (0-2); RBC Urine 0-2 /HPF (0-2); Squamous Epithelial Cell Urine 0-2 /HPF (0-2); WBC Urine 0-5 /HPF (0-5)
[2022-07-15 19:56] LABS: COVID-19 Test Negative (Negative); IDNOW Serial# 08D9AD1C
[2022-07-15 20:04] LABS: Amphetamine Screen Urine Not Detected (Not Detect); Barbiturates, Urine Not Detected (Not Detect); Benzodiazepines Screen Urine Not Detected (Not Detect); Cannabinoid Screen Urine Not Detected (Not Detect); Cocaine Screen Urine Not Detected (Not Detect); Fentanyl, urine POSITIVE (Not Detect); Opiate Screen Urine Not Detected (Not Detect); Phencyclidine Screen Urine Not Detected (Not Detect)
[2022-07-15 20:17] LABS: MANUAL DIFF FLAG NO
[2022-07-15 20:22] LABS: Basophils Percent Auto 0.5 % (0-2); Eosinophils Absolute Auto 0.2 X10*3/uL (0.0-0.4); Eosinophils Percent Auto 2.9 % (0-4); Hematocrit 35.7 % (37.0-47.0); Hemoglobin 11.5 g/dl (12.0-16.0); Imm Gran Abs Auto 0.03 X10*3/uL (0.00-0.03); Imm Gran Pct Auto 0.4 % (0.0-0.4); Lymphocytes Percent Auto 24.5 % (20-40); Mean Corpuscular HGB Conc 32.2 g/dl (31.0-35.0); Mean Corpuscular Hemoglobin 27.9 pg (27.0-33.0); Mean Corpuscular Volume 86.7 fL (80.0-98.0); Mean Platelet Volume 9.9 fL (9.4-12.3); Monocytes Absolute Auto 0.6 X10*3/uL (0.1-1.2); Monocytes Percent Auto 7.6 % (2-11); Neutrophils Absolute Auto 5.3 x10*3/uL (2.0-8.3); Neutrophils Percent Auto 64.1 % (45-73); Platelet Count 288 X10*3/uL (160-400); Red Blood Count 4.12 X10*6/uL (4.20-5.50); White Blood Count 8.2 X10*3/uL (4.8-10.8)
--- NOTE | 2022-07-15 20:29 | MHC.CARE ---
Care Team met with pt in room 3. Pt reported she was at [facility] when she started to have CAH from a male yell to cut herself or jump the balcony. Pt stated the voice get worse in July through October due to feeling scared of halloween, biological mother passing away in August and adopted mother dying in her arms in October. Pt denied SI/HI/AH and reported AH are manageable. Pt stated she wants to go home as she feel better. Care Team spoke to Nicki Schreiber MD and Lyric Kline LOSS PREVENTION RESEARCH ENGINEER were in agreement of pt being discharged to intermediate.
[2022-07-15 20:46] LABS: Alanine Aminotransferase 10 U/L (0-31); Albumin Level 4.6 g/dL (3.5-5.0); Alkaline Phosphatase 108 U/L (39-117); Anion Gap 18 (12-20); Aspartate Amino Transferase 13 U/L (5-31); Bilirubin Total 0.3 mg/dL (0.0-1.0); Blood Urea Nitrogen 10 mg/dL (9-16); Calcium 9.8 mg/dL (8.4-10.2); Carbon Dioxide 21 mmol/L (22-29); Chloride 104 mmol/L (96-108); Creatinine Clr Calc Pharmacy 112.5; Estimated Glomerular Filt Rate > 60; Glucose Random 108 mg/dL (60-115); Magnesium 1.6 mg/dL (1.6-2.6); Potassium 3.9 mmol/L (3.3-5.1); Salicylate < 5.0 mg/dL (15-30); Sodium 139 mmol/L (135-145); Total Protein 7.5 g/dL (6.5-8.0)
[2022-07-15 20:59] LABS: Acetaminophen LAB < 1 mcg/mL (<30)
== END 2022-07-15 20:44 | disposition home or self-care (01) ==
PROVIDERS: Physician Assistant Medical; Emergency Provider Internal Medicine; PCP Nurse Practitioner Family
DX: F32.9 Major depressive disorder, single episode, unspecified (principal); F41.9 Anxiety disorder, unspecified; R44.0 Auditory hallucinations; F60.3 Borderline personality disorder; F43.10 Post-traumatic stress disorder, unspecified; E11.9 Type 2 diabetes mellitus without complications; E78.5 Hyperlipidemia, unspecified; F17.210 Nicotine dependence, cigarettes, uncomplicated; F12.90 Cannabis use, unspecified, uncomplicated; Z91.51 Personal history of suicidal behavior; Z79.02 Long term (current) use of antithrombotics/antiplatelets; Z79.84 Long term (current) use of oral hypoglycemic drugs; Z79.899 Other long term (current) drug therapy; Z20.822 Contact with and (suspected) exposure to COVID-19
CPT/HCPCS: 36415; 80053; 80143; 80179; 80307; 81001; 83735; 85025; 87635; 99282; 99284

== ENCOUNTER 2022-07-17 19:18 | Emergency (ER) | payer MEDICARE, MEDICAID, SELFPAY ==
[2022-07-17 19:32] VITALS: BP 124/75; PULSE 104; RESP 18; TEMP 36.4; O2SAT 97; BMI 41.6
--- NOTE | 2022-07-17 19:37 | ED_ITS ---
HPI - Psych General Chief Complaint: Psychiatric Symptoms Stated Complaint: si Time Seen by Provider: 07/17/22 19:37 Source: patient and EMS Mode of arrival: EMS Limitations: no limitations History of Present Illness HPI Narrative: Patient comes to the emergency room complaining of voices telling her to hurt herself. Patient denies any recent cutting, denies ingesting any substances. Patient complaining of the voices telling her to hurt herself. Paramedics who brought the patient states that they have picked her up for the last 2 days, patient rotates emergency rooms between [facility], [facility] and [facility] Related Data Home Medications Medication Instructions Recorded Confirmed atorvastatin 10 mg tablet 1 tab PO DAILY 05/29/21 07/15/22 fluticasone propionate 110 2 puff inhalation BID 05/29/21 07/15/22 mcg/actuation HFA aerosol inhaler (Flovent HFA) metformin 500 mg tablet 1 tab PO BID 05/29/21 07/15/22 montelukast 10 mg tablet 1 tab PO BEDTIME 05/29/21 07/15/22 verapamil 240 mg tablet,extended 240 mg PO BEDTIME 05/29/21 07/15/22 release albuterol sulfate 90 mcg/actuation 2 puff inhalation Q4H PRN 06/15/21 07/15/22 aerosol inhaler (Ventolin HFA) Shortness Of Breath trazodone 150 mg tablet 150 mg PO BEDTIME 11/05/21 07/15/22 benztropine 1 mg tablet 1 mg PO DAILY 12/26/21 07/15/22 fluphenazine HCl 2.5 mg tablet 1 tab PO BEDTIME 03/19/22 07/15/22 fluphenazine HCl 5 mg tablet 1 tab PO BEDTIME 03/19/22 07/15/22 chlorpromazine 25 mg tablet 1 tab PO TID 06/17/22 07/15/22 hydroxyzine HCl 50 mg tablet 2 tab PO BID 06/17/22 07/15/22 Previous Rx's Medication Instructions Recorded fluoxetine 20 mg capsule 40 mg PO DAILY 30 days #60 caps 09/29/21 prazosin 1 mg capsule 4 mg PO BEDTIME 30 days #120 caps 10/18/21 ondansetron 4 mg disintegrating 4 mg PO Q6-8H PRN nausea and 04/23/22 tablet vomiting #14 tabs docusate sodium 100 mg capsule 100 mg PO BID Constipation #60 caps 02/07/22 (Colace) nystatin 100,000 unit/gram topical 1 appl topical QID tinea Cruris 06/30/22 ointment #30 grams Allergies Allergy/AdvReac Type Severity Reaction Status Date / Time Fish Containing Products Allergy Severe ANAPHYLAXIS Verified 05/06/22 20:47 codeine [Codeine] Allergy Unknown RASH Verified 05/06/22 20:47 Penicillins Allergy Unknown RASH Verified 05/06/22 20:47 prednisone [Prednisone] Allergy Unknown RASH Verified 05/06/22 20:47 Sulfa (Sulfonamide Allergy Unknown RASH Verified 05/06/22 20:47 Antibiotics) [Sulfa (Sulfonamides)] azithromycin [AZITHROMYCIN] AdvReac Severe RASH Verified 05/06/22 20:47 ziprasidone [From Geodon] AdvReac Intermediate dysuria, Verified 05/06/22 20:47 rash Review of Systems Review of Systems: Constitutional : No Weight loss, No Fever, No Chills, No N ight Sweats, No Fatigue, No Malaise ENT/Mouth : No Hearing loss, No Ear Pain, No Nasal Congestion, No Sinus Pain, No Hoarseness, No sore throat, No Rhinorrhea, No Swallowing Difficulty Eyes: No Eye Pain, No Swelling, No Redness, No Foreign Body, No Discharge, No Vision Changes Cardiovascular : No Chest Pain, No SOB, No Dyspnea on Exertion, No Orthopnea, No Edema, No Palpitations Respiratory : No Cough, No Sputum, No Wheezing, No Smoke Exposure, No Dyspnea Gastrointestinal : No Nausea, No Vomiting, No Diarrhea, No Constipation, No abdominal Pain, No Hematochezia, No Melena Genitourinary : no irregular bleeding, No Dysuria, No Urinary Frequency, No Hematuria, No Urinary Incontinence, No Urgency, No Flank Pain, No Urinary Flow Changes, No Hesitancy Musculoskeletal : No joint pain, No Myalgias, No Joint Swelling Skin : No Skin Lesions, No rash Neuro : No Weakness, No Numbness, No Paresthesias, No Loss of Consciousness, No Dizziness, No Headache Psych : Complaining of anxiety, states she is hearing voices telling her to hurt herself, Heme/Lymph: No Bruising, No Bleeding,No Lymphadenopathy Endocrine : No Polyuria, No Polydipsia, No Temperature Intolerance PMFSH Past Medical History Medical History Acetaminophen overdose Borderline personality disorder Bronchitis Depression Diabetes type 2, controlled GERD (gastroesophageal reflux disease) History of attempted suicide History of non-suicidal self-harm Hyperlipidemia Hypomagnesemia Major depression MDD (major depressive disorder), recurrent episode, severe Mood disorder Overdose PTSD (post-traumatic stress disorder) Suicide attempt Suicide attempt by acetaminophen overdose Social History Social History Household Members: None Household Members Other:: Patient lives in detention. 4 in total live in detention. Housing: Other Housing Other:: detention Do you presently have visiting nurse or other home services: No Unable to assess alcohol history related to: Unknown Alcohol intake: never Patient Tobacco Use Status: Current everyday Tobacco user Tobacco use type: Cigarette Cigarette Packs Per Day: 1 Cigarettes Per Day: 20 Years Smoked: 20 e-Cigarette/Vaping Use: Never Used Substance Use Type: Marijuana Advance Directives: No Advance Directives Information Provided: Yes service: No Current occupational status: disabled Sexual orientation: Don't Know Physical Exam Vital Signs: Vital Signs: Last Vital Signs Temp 97.6 F 07/17/22 19:32 Pulse 104 H 07/17/22 19:32 Resp 18 07/17/22 19:32 BP 124/75 07/17/22 19:32 Pulse Ox 97 07/17/22 19:32 O2 Del Method 07/17/22 19:32 BMI result Body Mass Index 41.6 Const: Other: Appearance: Alert. Oriented X3. Very anxious Eyes: Pupils equal, round and reactive to light. ENT: Pharynx normal. Neck: Normal inspection. Neck supple. No lymph nodes noted. No crepitus CVS: Normal heart rate and rhythm. Pulses normal. Normal S1 and S2 Respiratory: No respiratory distress. Breath sounds normal. No Wheezing. No rales Abdomen: Soft and nontender. No rigidity. No distention. Skin: Skin warm and dry. Normal skin color. Normal skin turgor. Extremities: No lower extremity edema. No Lacerations. No Rash Neuro: Oriented X 3. No motor deficit. No sensory deficit. Moving all extremities. No slurred speech. CN 2 through 12 grossly intact Psych: Anxious, cooperative Course Course Course Narrative: [facility] evaluated the patient. Patient usually feels well after talking to him [facility] and is discharged home. Today, patient states that she feels very anxious and is not ready for discharge. [facility] will be re-evaluated in the morning. Physician observation started at 20:00 Discharge Plan Discharge Clinical Impression: Anxiety, Auditory hallucination Patient Disposition: Still a Patient Prescriptions: No Action metformin 500 mg tablet 1 tab PO BID atorvastatin 10 mg tablet 1 tab PO DAILY verapamil 240 mg tablet extended release 240 mg PO BEDTIME montelukast 10 mg tablet 1 tab PO BEDTIME fluticasone propionate [Flovent HFA] 110 mcg/actuation HFA aerosol inhaler 2 puff inhalation BID albuterol sulfate [Ventolin HFA] 90 mcg/actuation HFA aerosol inhaler 2 puff inhalation Q4H PRN (Reason: Shortness Of Breath) trazodone 150 mg tablet 150 mg PO BEDTIME benztropine 1 mg tablet 1 mg PO DAILY docusate sodium [Colace] 100 mg capsule 100 mg PO BID Qty: 60 0RF hydroxyzine HCl 50 mg tablet 2 tab PO BID chlorpromazine 25 mg tablet 1 tab PO TID nystatin 100,000 unit/gram ointment 1 appl topical QID Qty: 30 0RF fluoxetine 20 mg Capsule 40 mg PO DAILY 30 Days Qty: 60 0RF prazosin 1 mg Capsule 4 mg PO BEDTIME 30 Days Qty: 120 0RF Protocol: Hold for SBP< HOLD for SBP < : 90 ondansetron 4 mg tablet,disintegrating 4 mg PO Q6-8H PRN (Reason: nausea and vomiting) Qty: 14 0RF fluphenazine HCl 2.5 mg tablet 1 tab PO BEDTIME fluphenazine HCl 5 mg tablet 1 tab PO BEDTIME
--- NOTE | 2022-07-17 19:58 | MHC.CARE ---
Pt is a 46 female that arrived to [facility] via EMS with CAH telling her to self harm. Care Team met with pt and she reported having CAH stating to cut herself with broken dishes or overdose on drugs. Pt requested to stay overnight as she does not feel safe due to the CAH being strong. Care Team spoke to Eileen Ryan MD and Nicole MILLER and they both were in agreement with pt staying overnight to assessed in the morning. Shortly after speaking to this business writer, pt reported wanting to discharge, however, this business writer stated the original plan remains.
[2022-07-17 20:29] LABS: COVID-19 Test Negative (Negative); IDNOW Serial# 55D5AD1C
[2022-07-17 23:33] VITALS: BP 145/96; PULSE 79; RESP 17; TEMP 36.8; O2SAT 95
[2022-07-18 01:15] LABS: Acetaminophen LAB < 1 mcg/mL (<30); Salicylate < 5.0 mg/dL (15-30)
--- NOTE | 2022-07-18 05:59 | PC.NURSE ---
Patient sleep well, with no distress. She is up at this time walking with staff, waiting to be discharge. will continue to monitor.
[2022-07-18 06:14] LABS: Appearance Urine Clear; Color Urine Yellow; Glucose Urine UA Negative (Negative); Leukocyte Esterase Urine Negative (Negative); Nitrite Urine Negative (Negative); Urine Blood Negative (Negative); Urine Ketones Negative (Negative); Urine Protein Negative (Neg-Trace)
[2022-07-18 06:21] LABS: UPreg QC Valid YES; Urine Pregnancy NEGATIVE (NEGATIVE)
[2022-07-18 06:28] LABS: Amphetamine Screen Urine Not Detected (Not Detect); Barbiturates, Urine Not Detected (Not Detect); Benzodiazepines Screen Urine Not Detected (Not Detect); Cannabinoid Screen Urine Not Detected (Not Detect); Cocaine Screen Urine Not Detected (Not Detect); Fentanyl, urine POSITIVE (Not Detect); Opiate Screen Urine Not Detected (Not Detect); Phencyclidine Screen Urine Not Detected (Not Detect)
--- NOTE | 2022-07-18 07:13 | PC.NURSE ---
patient appears to remain at rest, respirations are even and unlabored patient appears in no distress
[2022-07-18 08:58] VITALS: BP 109/86; PULSE 80; RESP 13; TEMP 36.6; O2SAT 98
--- NOTE | 2022-07-18 10:28 | MHC.CARE ---
0900 CARE Team met with patient in [facility] after she requested discharge. Stated that she does not feel suicidal and is no longer experiencing auditory hallucinations, feels safe go home. Patient was unable to identify a precipitant and said she was, Just having a hard time last night. Report indicated that patient has been alternating going to area EDs with similar presentations, she denied being able to chose, said that EMS decides which hospital to bring her to. At this time patient does not appear to be in crisis, she does consistently reach out for help when needed. 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 Hernandez consulted and in agreement with plan.
== END 2022-07-18 09:45 | disposition home or self-care (01) ==
PROVIDERS: Emergency Medicine Emergency Medical Services; Emergency Provider Emergency Medicine
DX: F41.9 Anxiety disorder, unspecified (principal); R44.0 Auditory hallucinations; R45.851 Suicidal ideations; F60.3 Borderline personality disorder; F17.210 Nicotine dependence, cigarettes, uncomplicated; F12.90 Cannabis use, unspecified, uncomplicated; Z79.02 Long term (current) use of antithrombotics/antiplatelets; Z79.84 Long term (current) use of oral hypoglycemic drugs; Z79.899 Other long term (current) drug therapy; Z91.52 Personal history of nonsuicidal self-harm; Z20.822 Contact with and (suspected) exposure to COVID-19
CPT/HCPCS: 36415; 80143; 80179; 80307; 81003; 81025; 87635; 99283; 99284

== ENCOUNTER 2022-07-20 20:26 | Emergency (ER) | payer MEDICARE, MEDICAID, SELFPAY ==
[2022-07-20 20:33] VITALS: BP 130/86; PULSE 96; RESP 17; TEMP 36.8; O2SAT 96; BMI 40.3
--- NOTE | 2022-07-20 21:10 | ED_ITS ---
HPI - Psych General Chief Complaint: Psychiatric Symptoms Stated Complaint: crisis Time Seen by Provider: 07/20/22 20:28 Source: patient and EMS Mode of arrival: EMS Limitations: no limitations History of Present Illness HPI Narrative: 46-year-old female with a borderline personality disorder, depression, anxiety, bipolar 2 with melancholic features, PTSD, DM, GERD?presents today Via EMS with anxiety, and auditory hallucinations.? Patient tells me that she is hearing voices and that were telling her scary things. Reports that she hasnt heard voices in two days. ? She also tells me that she cut her wrist today with a tack she is unable to provide an explanation as to why she did this.? Patient reports she went to the day program today and worked at her job. Denies SI/HI, visual/tactile hallucinations, alcohol or drug use. No medical complaints at this time. Related Data Home Medications Medication Instructions Recorded Confirmed atorvastatin 10 mg tablet 1 tab PO DAILY 05/29/21 07/20/22 fluticasone propionate 110 2 puff inhalation BID 05/29/21 07/20/22 mcg/actuation HFA aerosol inhaler (Flovent HFA) metformin 500 mg tablet 1 tab PO BID 05/29/21 07/20/22 montelukast 10 mg tablet 1 tab PO BEDTIME 05/29/21 07/20/22 verapamil 240 mg tablet,extended 240 mg PO BEDTIME 05/29/21 07/20/22 release albuterol sulfate 90 mcg/actuation 2 puff inhalation Q4H PRN 06/15/21 07/20/22 aerosol inhaler (Ventolin HFA) Shortness Of Breath trazodone 150 mg tablet 150 mg PO BEDTIME 11/05/21 07/20/22 benztropine 1 mg tablet 1 mg PO DAILY 12/26/21 07/20/22 fluphenazine HCl 2.5 mg tablet 1 tab PO BEDTIME 03/19/22 07/20/22 fluphenazine HCl 5 mg tablet 1 tab PO BEDTIME 03/19/22 07/20/22 chlorpromazine 25 mg tablet 1 tab PO TID 06/17/22 07/20/22 hydroxyzine HCl 50 mg tablet 2 tab PO BID 06/17/22 07/20/22 Previous Rx's Medication Instructions Recorded fluoxetine 20 mg capsule 40 mg PO DAILY 30 days #60 caps 09/29/21 prazosin 1 mg capsule 4 mg PO BEDTIME 30 days #120 caps 10/18/21 ondansetron 4 mg disintegrating 4 mg PO Q6-8H PRN nausea and 02/04/22 tablet vomiting #14 tabs docusate sodium 100 mg capsule 100 mg PO BID Constipation #60 caps 02/07/22 (Colace) nystatin 100,000 unit/gram topical 1 appl topical QID tinea Cruris 06/30/22 ointment #30 grams Allergies Allergy/AdvReac Type Severity Reaction Status Date / Time Fish Containing Products Allergy Severe ANAPHYLAXIS Verified 05/06/22 20:47 codeine [Codeine] Allergy Unknown RASH Verified 05/06/22 20:47 Penicillins Allergy Unknown RASH Verified 05/06/22 20:47 prednisone [Prednisone] Allergy Unknown RASH Verified 05/06/22 20:47 Sulfa (Sulfonamide Allergy Unknown RASH Verified 05/06/22 20:47 Antibiotics) [Sulfa (Sulfonamides)] azithromycin [AZITHROMYCIN] AdvReac Severe RASH Verified 05/06/22 20:47 ziprasidone [From Geodon] AdvReac Intermediate dysuria, Verified 05/06/22 20:47 rash Review of Systems Review of Systems: Constitutional : No Weight loss, No Fever, No Chills, No Fatigue, No Malaise ENT/Mouth : No sore throat, No Rhinorrhea Eyes: No Eye Pain, No Swelling, No Redness Cardiovascular : No Chest Pain, No SOB, No Dyspnea on Exertion, No Orthopnea, No Edema, No Palpitations Respiratory : No Cough, No Sputum, No Wheezing Gastrointestinal : No Nausea, No Vomiting, No Diarrhea, No Constipation, No abdominal Pain, No Hematochezia, No Melena Genitourinary : No Dysuria, No Urinary Frequency, No Hematuria, Musculoskeletal : No joint pain, No Myalgias, No Joint Swelling Skin : No Skin Lesions, No rash Neuro : No Weakness, No Numbness, No Dizziness, No Headache Psych : + Anxiety/Panic, No Depression, No SI or HI All other systems reviewed and are negative Yes all other systems are reviewed and are negative [facility] Past Medical History Attestation statement: The following information was validated with the patient. Source: old records reviewed and nursing notes reviewed Medical History Acetaminophen overdose Borderline personality disorder Bronchitis Depression Diabetes type 2, controlled GERD (gastroesophageal reflux disease) History of attempted suicide History of non-suicidal self-harm Hyperlipidemia Hypomagnesemia Major depression MDD (major depressive disorder), recurrent episode, severe Mood disorder Overdose PTSD (post-traumatic stress disorder) Suicide attempt Suicide attempt by acetaminophen overdose Social History Social History Household Members: None Household Members Other:: Patient lives in long-term. 4 in total live in long-term. Housing: Other Housing Other:: long-term Do you presently have visiting nurse or other home services: No Unable to assess alcohol history related to: Unknown Alcohol intake: never Patient Tobacco Use Status: Current everyday Tobacco user Tobacco use type: Cigarette Cigarette Packs Per Day: 1 Cigarettes Per Day: 20 Years Smoked: 20 e-Cigarette/Vaping Use: Never Used Substance Use Type: Marijuana Advance Directives: No Advance Directives Information Provided: No service: No Current occupational status: disabled Sexual orientation: Don't Know Physical Exam Vital Signs: Vital Signs: Last Vital Signs Temp 98.2 F 07/20/22 20:33 Pulse 96 07/20/22 20:33 Resp 17 07/20/22 20:33 BP 130/86 07/20/22 20:33 Pulse Ox 96 07/20/22 20:33 O2 Del Method 07/20/22 20:33 BMI result Body Mass Index 40.3 vss Appearance: Alert.? Oriented X3.? No acute distress.? Head: Normocephalic, atraumatic, no step-offs or deformities Eyes: Pupils equal, round and reactive to light.? ENT: Pharynx normal.? Neck: Normal inspection.? Neck supple.? CVS: Normal heart rate and rhythm.? Pulses normal.? Respiratory: No respiratory distress.? Breath sounds normal.? Abdomen: Soft and nontender.? Skin: Skin warm and dry.? Normal skin color.? Normal skin turgor.?Old self inflicted wounds to b/l UE, LE and abdomen Extremities: No lower extremity edema.? No calf ttp. 5/5 strength to bilateral upper and lower extremities Back: No midline tenderness, no C-spine tenderness, full range of motion, no CVA tenderness bilaterally Neuro: Oriented X 3.? No motor deficit.? No sensory deficit. CN 2-12 intact Course Reevaluation(s) Reevaluation #1: Patient reports all her symptoms have resolved. She was evaluated by care team who feels as though patient is safe for discharge home with outpatient providers. Patient denies SI and HI. Time: 21:26 Reevaluation #2: Patient's laboratory studies at baseline. No acute findings and no findings requiring intervention. Patient will be discharged back to long-term. At this time I feel comfortable discharge. Time: 22:00 MDM - Psych MDM Narrative Medical decision making narrative: 2113 46 y/o f presenting with anxiety and auditory hallucinations. No medical complaints at this time. Patient tells me she thinks this is anxiety PE benign. Plan to observe the patient in behavioral health unit, crisis evaluation. Suspect recurrent anxiety, less likely organic cause of the patient's symptoms such as metabolic derangement. Will medically clear Medical Records Attestation: I reviewed the patient's medical records. Lab Data Attestation: I reviewed the patient's lab results. Result diagrams: 07/20/22 21:21 07/20/22 21:21 Labs: Lab Results 07/20/22 07/20/22 07/20/22 Range/Units 20:51 21:21 21:21 WBC 7.4 (4.8-10.8) X10*3/uL RBC 3.63 L (4.20-5.50) X10*6/uL Hgb 10.0 L (12.0-16.0) g/dl Hct 31.2 L (37.0-47.0) % MCV 86.0 (80.0-98.0) fL MCH 27.5 (27.0-33.0) pg MCHC 32.1 (31.0-35.0) g/dl RDW 13.2 (11.0-16.0) % Plt Count 262 (160-400) X10*3/uL MPV 10.0 (9.4-12.3) fL Immature Gran % (Auto) 0.4 (0.0-0.4) % Neut % (Auto) 62.5 (45-73) % Lymph % (Auto) 24.7 (20-40) % Platte % (Auto) 8.7 (2-11) % Eos % (Auto) 3.3 (0-4) % Baso % (Auto) 0.4 (0-2) % Lymph # (Auto) 1.8 (1.2-4.9) X10*3/uL Platte # (Auto) 0.6 (0.1-1.2) X10*3/uL Eos # (Auto) 0.2 (0.0-0.4) X10*3/uL Baso # (Auto) 0.0 (0.0-0.2) X10*3/uL Abs Immat Gran (auto) 0.03 (0.00-0.03) X10*3/uL Absolute Neuts (auto) 4.6 (2.0-8.3) x10*3/uL Absolute Nucleated RBC 0.000 (0.0-0.012) X10*3/uL Nucleated RBC % (auto) 0.0 (0.0-0.2) /100WBC Sodium 140 (135-145) mmol/L Potassium 3.5 (3.3-5.1) mmol/L Chloride 106 (96-108) mmol/L Carbon Dioxide 23 (22-29) mmol/L Anion Gap 15 (12-20) BUN 7 L (9-16) mg/dL Creatinine 0.72 (0.5-1.4) mg/dL Estim Creat Clear Calc 118.7 Estimated GFR > 60 Random Glucose 126 H (60-115) mg/dL Calcium 8.2 L D (8.4-10.2) mg/dL Total Bilirubin 0.2 (0.0-1.0) mg/dL AST 15 (5-31) U/L ALT 10 (0-31) U/L Alkaline Phosphatase 102 (39-117) U/L Total Protein 6.4 L (6.5-8.0) g/dL Albumin 3.9 (3.5-5.0) g/dL Salicylates < 5.0 L (15-30) mg/dL Acetaminophen < 1 (<30) mcg/mL COVID-19 ([facility]) Negative (Negative) COVID-19 Clin Com See Note Critical Care Time Critical Care Time Critical Care Time: No Discharge Plan Discharge Clinical Impression: Major depression, Acute anxiety Patient Disposition: Home, Self-Care Instructions: Depression (ED), Anxiety (ED) Additional Instructions: Take your medications as prescribed. If you were prescribed antibiotics today, it is important that you take your medication to their entirety, do not skip any doses, do not finish them early. Follow-up with your primary care provider this week. Follow-up with the behavioral health team. Return to the emergency department with new or worsening symptoms. Such as fevers, chills, chest pain, shortness of breath, nausea, vomiting, dizziness, headache, vision changes, lethargy, suicidal ideation or homicidal ideation, visual, auditory or tactile hallucinations In case of emergency call 911 Prescriptions: No Action metformin 500 mg tablet 1 tab PO BID atorvastatin 10 mg tablet 1 tab PO DAILY verapamil 240 mg tablet extended release 240 mg PO BEDTIME montelukast 10 mg tablet 1 tab PO BEDTIME fluticasone propionate [Flovent HFA] 110 mcg/actuation HFA aerosol inhaler 2 puff inhalation BID albuterol sulfate [Ventolin HFA] 90 mcg/actuation HFA aerosol inhaler 2 puff inhalation Q4H PRN (Reason: Shortness Of Breath) trazodone 150 mg tablet 150 mg PO BEDTIME benztropine 1 mg tablet 1 mg PO DAILY docusate sodium [Colace] 100 mg capsule 100 mg PO BID Qty: 60 0RF hydroxyzine HCl 50 mg tablet 2 tab PO BID chlorpromazine 25 mg tablet 1 tab PO TID nystatin 100,000 unit/gram ointment 1 appl topical QID Qty: 30 0RF fluoxetine 20 mg Capsule 40 mg PO DAILY 30 Days Qty: 60 0RF prazosin 1 mg Capsule 4 mg PO BEDTIME 30 Days Qty: 120 0RF Protocol: Hold for SBP< HOLD for SBP < : 90 ondansetron 4 mg tablet,disintegrating 4 mg PO Q6-8H PRN (Reason: nausea and vomiting) Qty: 14 0RF fluphenazine HCl 2.5 mg tablet 1 tab PO BEDTIME fluphenazine HCl 5 mg tablet 1 tab PO BEDTIME [facility] - 1 day Physician,Unknown J [Primary Care Provider] - 2 days Stand Alone Forms: Work/School Release Interventions: ED Discharge Assessment Last Done: 07/20/22 22:03 Discharge Date/Time: 07/20/22 22:08
--- NOTE | 2022-07-20 21:10 | MHC.CARE ---
Care Team met with pt in pod in 7. Pt reported having CAH - from a male voice telling her to self harm or to overdose. Pt stated she ignores the voices and denied SI/HI/VH. Pt reported feeling safe and wanting to return to the halfway.
[2022-07-20 21:15] LABS: COVID-19 Test Negative (Negative)
[2022-07-20 21:26] LABS: MANUAL DIFF FLAG NO
[2022-07-20 21:28] LABS: Basophils Percent Auto 0.4 % (0-2); Eosinophils Absolute Auto 0.2 X10*3/uL (0.0-0.4); Eosinophils Percent Auto 3.3 % (0-4); Hematocrit 31.2 % (37.0-47.0); Imm Gran Abs Auto 0.03 X10*3/uL (0.00-0.03); Imm Gran Pct Auto 0.4 % (0.0-0.4); Lymphocytes Absolute Auto 1.8 X10*3/uL (1.2-4.9); Lymphocytes Percent Auto 24.7 % (20-40); Mean Corpuscular HGB Conc 32.1 g/dl (31.0-35.0); Mean Corpuscular Hemoglobin 27.5 pg (27.0-33.0); Monocytes Absolute Auto 0.6 X10*3/uL (0.1-1.2); Monocytes Percent Auto 8.7 % (2-11); Neutrophils Absolute Auto 4.6 x10*3/uL (2.0-8.3); Neutrophils Percent Auto 62.5 % (45-73); Platelet Count 262 X10*3/uL (160-400); Red Blood Count 3.63 X10*6/uL (4.20-5.50); Red Cell Distribution Width 13.2 % (11.0-16.0); White Blood Count 7.4 X10*3/uL (4.8-10.8)
[2022-07-20 21:46] LABS: Acetaminophen LAB < 1 mcg/mL (<30); Alanine Aminotransferase 10 U/L (0-31); Albumin Level 3.9 g/dL (3.5-5.0); Alkaline Phosphatase 102 U/L (39-117); Anion Gap 15 (12-20); Aspartate Amino Transferase 15 U/L (5-31); Bilirubin Total 0.2 mg/dL (0.0-1.0); Blood Urea Nitrogen 7 mg/dL (9-16); Calcium 8.2 mg/dL (8.4-10.2); Carbon Dioxide 23 mmol/L (22-29); Chloride 106 mmol/L (96-108); Creatinine Clr Calc Pharmacy 118.7; Estimated Glomerular Filt Rate > 60; Glucose Random 126 mg/dL (60-115); Potassium 3.5 mmol/L (3.3-5.1); Salicylate < 5.0 mg/dL (15-30); Sodium 140 mmol/L (135-145); Total Protein 6.4 g/dL (6.5-8.0)
== END 2022-07-20 22:08 | disposition home or self-care (01) ==
PROVIDERS: Physician Assistant; Emergency Provider Internal Medicine
DX: F32.9 Major depressive disorder, single episode, unspecified (principal); F41.9 Anxiety disorder, unspecified; R44.0 Auditory hallucinations; Z20.822 Contact with and (suspected) exposure to COVID-19; F60.3 Borderline personality disorder; E11.9 Type 2 diabetes mellitus without complications; E78.5 Hyperlipidemia, unspecified; F43.10 Post-traumatic stress disorder, unspecified; Z91.52 Personal history of nonsuicidal self-harm; F17.210 Nicotine dependence, cigarettes, uncomplicated; F12.90 Cannabis use, unspecified, uncomplicated; Z79.02 Long term (current) use of antithrombotics/antiplatelets; Z79.84 Long term (current) use of oral hypoglycemic drugs; Z79.899 Other long term (current) drug therapy
CPT/HCPCS: 36415; 80053; 80143; 80179; 85025; 87635; 99282; 99284

== ENCOUNTER 2022-07-22 19:11 | Emergency (ER) | payer MEDICARE, MEDICAID, SELFPAY ==
--- NOTE | 2022-07-22 19:19 | ED_ITS ---
HPI - Psych General Chief Complaint: Psychiatric Symptoms Stated Complaint: crisis Time Seen by Provider: 07/22/22 19:19 Source: patient and EMS Mode of arrival: EMS Limitations: no limitations History of Present Illness HPI Narrative: 46-year-old female presents via EMS for suicidal ideation and anxiety. States t hat she wants to overdose on Tylenol. complaint: suicidal ideation and feels depressed Onset (ago): year(s) Duration: constant History of same: Yes Relieving factors: none Associated psychiatric symptoms: depression, suicidal ideation and racing thoughts Associated symptoms: denies other symptoms If self harm: admits thoughts of self harm and has plan Related Data Home Medications Medication Instructions Recorded Confirmed atorvastatin 10 mg tablet 1 tab PO DAILY 05/29/21 07/22/22 fluticasone propionate 110 2 puff inhalation BID 05/29/21 07/22/22 mcg/actuation HFA aerosol inhaler (Flovent HFA) metformin 500 mg tablet 1 tab PO BID 05/29/21 07/22/22 montelukast 10 mg tablet 1 tab PO BEDTIME 05/29/21 07/22/22 verapamil 240 mg tablet,extended 240 mg PO BEDTIME 05/29/21 07/20/22 release albuterol sulfate 90 mcg/actuation 2 puff inhalation Q4H PRN 06/15/21 07/22/22 aerosol inhaler (Ventolin HFA) Shortness Of Breath trazodone 150 mg tablet 150 mg PO BEDTIME 11/05/21 07/22/22 benztropine 1 mg tablet 1 mg PO DAILY 12/26/21 07/22/22 fluphenazine HCl 2.5 mg tablet 1 tab PO BEDTIME 03/19/22 07/22/22 fluphenazine HCl 5 mg tablet 1 tab PO BEDTIME 03/19/22 07/22/22 chlorpromazine 25 mg tablet 1 tab PO TID 06/17/22 07/22/22 hydroxyzine HCl 50 mg tablet 2 tab PO BID 06/17/22 07/22/22 Previous Rx's Medication Instructions Recorded fluoxetine 20 mg capsule 40 mg PO DAILY 30 days #60 caps 09/29/21 prazosin 1 mg capsule 4 mg PO BEDTIME 30 days #120 caps 10/18/21 ondansetron 4 mg disintegrating 4 mg PO Q6-8H PRN nausea and 02/04/22 tablet vomiting #14 tabs docusate sodium 100 mg capsule 100 mg PO BID Constipation #60 caps 02/07/22 (Colace) nystatin 100,000 unit/gram topical 1 appl topical QID tinea Cruris 06/30/22 ointment #30 grams Allergies Allergy/AdvReac Type Severity Reaction Status Date / Time Fish Containing Products Allergy Severe ANAPHYLAXIS Verified 05/06/22 20:47 codeine [Codeine] Allergy Unknown RASH Verified 05/06/22 20:47 Penicillins Allergy Unknown RASH Verified 05/06/22 20:47 prednisone [Prednisone] Allergy Unknown RASH Verified 05/06/22 20:47 Sulfa (Sulfonamide Allergy Unknown RASH Verified 05/06/22 20:47 Antibiotics) [Sulfa (Sulfonamides)] azithromycin [AZITHROMYCIN] AdvReac Severe RASH Verified 05/06/22 20:47 ziprasidone [From Geodon] AdvReac Intermediate dysuria, Verified 05/06/22 20:47 rash Review of Systems Review of Systems: Constitutional: No Fever, No Chills ENT/Mouth: No Ear Pain, No Nasal Congestion, No sore throat Eyes: No Eye Pain, No Swelling, No Redness Cardiovascular: No Chest Pain, No SOB Respiratory: No Cough, No Sputum, No Dyspnea Gastrointestinal: No Nausea, No Vomiting, No Diarrhea, No Hematochezia, No Melena Genitourinary: No Dysuria, No Urinary Frequency, No Hematuria Musculoskeletal: No Myalgias Skin: No Skin Lesions, No rash Neuro: No Weakness, No Numbness, No Paresthesias, No Dizziness, No Headache Psych: positive Anxiety, positive Depression, positive SI Heme/Lymph: No Lymphadenopathy Endocrine: No Polyuria, No Polydipsia Yes all other systems are reviewed and are negative [facility] Past Medical History Attestation statement: The following information was validated with the patient. Source: old records reviewed Medical History Acetaminophen overdose Borderline personality disorder Bronchitis Depression Diabetes type 2, controlled GERD (gastroesophageal reflux disease) History of attempted suicide History of non-suicidal self-harm Hyperlipidemia Hypomagnesemia Major depression MDD (major depressive disorder), recurrent episode, severe Mood disorder Overdose PTSD (post-traumatic stress disorder) Suicide attempt Suicide attempt by acetaminophen overdose Social History Social History Household Members: None Household Members Other:: Patient lives in long term. 4 in total live in long term. Housing: Other Housing Other:: long term Do you presently have visiting nurse or other home services: No Unable to assess alcohol history related to: Unknown Alcohol intake: never Patient Tobacco Use Status: Current everyday Tobacco user Tobacco use type: Cigarette Cigarette Packs Per Day: 1 Cigarettes Per Day: 20 Years Smoked: 20 e-Cigarette/Vaping Use: Never Used Substance Use Type: Marijuana Advance Directives: No Advance Directives Information Provided: No service: No Current occupational status: disabled Sexual orientation: Don't Know Physical Exam Vital Signs: Vital Signs: Last Vital Signs Temp 98 F 07/22/22 19:20 Pulse 77 07/22/22 19:20 Resp 16 07/22/22 19:20 BP 158/90 H 07/22/22 19:20 Pulse Ox 97 07/22/22 19:20 O2 Del Method 07/22/22 19:20 BMI result Body Mass Index 40.3 Appearance: Alert. Oriented X3. No acute distress. Eyes: Pupils equal, round and reactive to light. ENT: Pharynx normal. Neck: Normal inspection. Neck supple. CVS: Normal heart rate and rhythm. Pulses normal. Respiratory: No respiratory distress. Breath sounds normal. Abdomen: Soft and nontender. Skin: Skin warm and dry. Normal skin color. Normal skin turgor. Extremities: Numerous scars consistent with prior self-inflicted injuries. Full range of motion to all extremities. Gait well-balanced well coordinated. Neuro: No motor deficit. No sensory deficit. Cranial nerves 2-12 intact. Course Course Course Narrative: 46-year-old female presents via EMS for suicidal ideation with plan to overdose on Tylenol. Patient presents to the emergency department on a daily basis for similar circumstances. Patient does not report any Tylenol use, at this time we will follow the care plan. Care team consult ordered. 19:45 care team come complete. Plan of care is to discharge home. Patient verbalized understanding of and agrees to plan of care to discharge home. MDM - Psych Differential Diagnosis Differential diagnosis: Likely suicidal ideation, bipolar disorder, depression, acute anxiety and post-traumatic stress disorder Medical Records Attestation: I reviewed the patient's medical records. Lab Data Attestation: I reviewed the patient's lab results. Result diagrams: 10/08/22 19:45 07/22/22 19:45 Labs: Lab Results 07/22/22 07/22/22 07/22/22 Range/Units 19:25 19:28 19:28 WBC (4.8-10.8) X10*3/uL RBC (4.20-5.50) X10*6/uL Hgb (12.0-16.0) g/dl Hct (37.0-47.0) % MCV (80.0-98.0) fL MCH (27.0-33.0) pg MCHC (31.0-35.0) g/dl RDW (11.0-16.0) % Plt Count (160-400) X10*3/uL MPV (9.4-12.3) fL Immature Gran % (Auto) (0.0-0.4) % Neut % (Auto) (45-73) % Lymph % (Auto) (20-40) % [place] % (Auto) (2-11) % Eos % (Auto) (0-4) % Baso % (Auto) (0-2) % Lymph # (Auto) (1.2-4.9) X10*3/uL [place] # (Auto) (0.1-1.2) X10*3/uL Eos # (Auto) (0.0-0.4) X10*3/uL Baso # (Auto) (0.0-0.2) X10*3/uL Abs Immat Gran (auto) (0.00-0.03) X10*3/uL Absolute Neuts (auto) (2.0-8.3) x10*3/uL Absolute Nucleated RBC (0.0-0.012) X10*3/uL Nucleated RBC % (auto) (0.0-0.2) /100WBC Sodium (135-145) mmol/L Potassium (3.3-5.1) mmol/L Chloride (96-108) mmol/L Carbon Dioxide (22-29) mmol/L Anion Gap (12-20) BUN (9-16) mg/dL Creatinine (0.5-1.4) mg/dL Estim Creat Clear Calc Estimated GFR Random Glucose (60-115) mg/dL Calcium (8.4-10.2) mg/dL Total Bilirubin (0.0-1.0) mg/dL AST (5-31) U/L ALT (0-31) U/L Alkaline Phosphatase (39-117) U/L Total Protein (6.5-8.0) g/dL Albumin (3.5-5.0) g/dL Urine Color Yellow Urine Appearance Clear Urine pH 6.5 (5.0-9.0) Ur Specific [place] <= 1.005 (1.005-1.025) Urine Protein Negative (Neg-Trace) mg/dL Urine Glucose (UA) Negative (Negative) mg/dL Urine Ketones Negative (Negative) mg/dL Urine Blood Large (3+) H (Negative) Urine Nitrite Negative (Negative) Ur Leukocyte Esterase Negative (Negative) Urine RBC >20 H (0-2) /HPF Urine WBC 0-5 (0-5) /HPF Ur Squamous Epith Cells 0-2 (0-2) /HPF Urine Bacteria None Seen (None Seen) Hyaline Casts 0-2 (0-2) /LPF Urine Test (NEGATIVE) Salicylates (15-30) mg/dL Urine Opiates Screen Not Detected (Not Detect) Urine Fentanyl Screen Not Detected (Not Detect) Acetaminophen (<30) mcg/mL Ur Barbiturates Screen Not Detected (Not Detect) Ur Phencyclidine Scrn Not Detected (Not Detect) Ur Amphetamines Screen Not Detected (Not Detect) U Benzodiazepines Scrn Not Detected (Not Detect) Urine Cocaine Screen Not Detected (Not Detect) U Marijuana (THC) Screen Not Detected (Not Detect) COVID-19 (NICK) Negative (Negative) COVID-19 Clin Com See Note 07/22/22 07/22/22 07/22/22 Range/Units 19:28 19:45 19:45 WBC 7.7 (4.8-10.8) X10*3/uL RBC 3.80 L (4.20-5.50) X10*6/uL Hgb 10.5 L (12.0-16.0) g/dl Hct 32.3 L (37.0-47.0) % MCV 85.0 (80.0-98.0) fL MCH 27.6 (27.0-33.0) pg MCHC 32.5 (31.0-35.0) g/dl RDW 13.1 (11.0-16.0) % Plt Count 258 (160-400) X10*3/uL MPV 9.4 (9.4-12.3) fL Immature Gran % (Auto) 0.3 (0.0-0.4) % Neut % (Auto) 64.4 (45-73) % Lymph % (Auto) 24.3 (20-40) % [place] % (Auto) 7.2 (2-11) % Eos % (Auto) 3.4 (0-4) % Baso % (Auto) 0.4 (0-2) % Lymph # (Auto) 1.9 (1.2-4.9) X10*3/uL [place] # (Auto) 0.6 (0.1-1.2) X10*3/uL Eos # (Auto) 0.3 (0.0-0.4) X10*3/uL Baso # (Auto) 0.0 (0.0-0.2) X10*3/uL Abs Immat Gran (auto) 0.02 (0.00-0.03) X10*3/uL Absolute Neuts (auto) 5.0 (2.0-8.3) x10*3/uL Absolute Nucleated RBC 0.000 (0.0-0.012) X10*3/uL Nucleated RBC % (auto) 0.0 (0.0-0.2) /100WBC Sodium 139 (135-145) mmol/L Potassium 3.7 (3.3-5.1) mmol/L Chloride 106 (96-108) mmol/L Carbon Dioxide 22 (22-29) mmol/L Anion Gap 15 (12-20) BUN 11 D (9-16) mg/dL Creatinine 0.79 (0.5-1.4) mg/dL Estim Creat Clear Calc 108.2 Estimated GFR > 60 Random Glucose 97 (60-115) mg/dL Calcium 8.9 D (8.4-10.2) mg/dL Total Bilirubin < 0.2 (0.0-1.0) mg/dL AST 19 (5-31) U/L ALT 16 (0-31) U/L Alkaline Phosphatase 118 H (39-117) U/L Total Protein 6.8 (6.5-8.0) g/dL Albumin 4.3 (3.5-5.0) g/dL Urine Color Urine Appearance Urine pH (5.0-9.0) Ur Specific [place] (1.005-1.025) Urine Protein (Neg-Trace) mg/dL Urine Glucose (UA) (Negative) mg/dL Urine Ketones (Negative) mg/dL Urine Blood (Negative) Urine Nitrite (Negative) Ur Leukocyte Esterase (Negative) Urine RBC (0-2) /HPF Urine WBC (0-5) /HPF Ur Squamous Epith Cells (0-2) /HPF Urine Bacteria (None Seen) Hyaline Casts (0-2) /LPF Urine Test NEGATIVE (NEGATIVE) Salicylates (15-30) mg/dL Urine Opiates Screen (Not Detect) Urine Fentanyl Screen (Not Detect) Acetaminophen (<30) mcg/mL Ur Barbiturates Screen (Not Detect) Ur Phencyclidine Scrn (Not Detect) Ur Amphetamines Screen (Not Detect) U Benzodiazepines Scrn (Not Detect) Urine Cocaine Screen (Not Detect) U Marijuana (THC) Screen (Not Detect) COVID-19 (NICK) (Negative) COVID-19 Clin Com 07/22/22 Range/Units 19:45 WBC (4.8-10.8) X10*3/uL RBC (4.20-5.50) X10*6/uL Hgb (12.0-16.0) g/dl Hct (37.0-47.0) % MCV (80.0-98.0) fL MCH (27.0-33.0) pg MCHC (31.0-35.0) g/dl RDW (11.0-16.0) % Plt Count (160-400) X10*3/uL MPV (9.4-12.3) fL Immature Gran % (Auto) (0.0-0.4) % Neut % (Auto) (45-73) % Lymph % (Auto) (20-40) % [place] % (Auto) (2-11) % Eos % (Auto) (0-4) % Baso % (Auto) (0-2) % Lymph # (Auto) (1.2-4.9) X10*3/uL [place] # (Auto) (0.1-1.2) X10*3/uL Eos # (Auto) (0.0-0.4) X10*3/uL Baso # (Auto) (0.0-0.2) X10*3/uL Abs Immat Gran (auto) (0.00-0.03) X10*3/uL Absolute Neuts (auto) (2.0-8.3) x10*3/uL Absolute Nucleated RBC (0.0-0.012) X10*3/uL Nucleated RBC % (auto) (0.0-0.2) /100WBC Sodium (135-145) mmol/L Potassium (3.3-5.1) mmol/L Chloride (96-108) mmol/L Carbon Dioxide (22-29) mmol/L Anion Gap (12-20) BUN (9-16) mg/dL Creatinine (0.5-1.4) mg/dL Estim Creat Clear Calc Estimated GFR Random Glucose (60-115) mg/dL Calcium (8.4-10.2) mg/dL Total Bilirubin (0.0-1.0) mg/dL AST (5-31) U/L ALT (0-31) U/L Alkaline Phosphatase (39-117) U/L Total Protein (6.5-8.0) g/dL Albumin (3.5-5.0) g/dL Urine Color Urine Appearance Urine pH (5.0-9.0) Ur Specific [place] (1.005-1.025) Urine Protein (Neg-Trace) mg/dL Urine Glucose (UA) (Negative) mg/dL Urine Ketones (Negative) mg/dL Urine Blood (Negative) Urine Nitrite (Negative) Ur Leukocyte Esterase (Negative) Urine RBC (0-2) /HPF Urine WBC (0-5) /HPF Ur Squamous Epith Cells (0-2) /HPF Urine Bacteria (None Seen) Hyaline Casts (0-2) /LPF Urine Test (NEGATIVE) Salicylates < 5.0 L (15-30) mg/dL Urine Opiates Screen (Not Detect) Urine Fentanyl Screen (Not Detect) Acetaminophen < 1 (<30) mcg/mL Ur Barbiturates Screen (Not Detect) Ur Phencyclidine Scrn (Not Detect) Ur Amphetamines Screen (Not Detect) U Benzodiazepines Scrn (Not Detect) Urine Cocaine Screen (Not Detect) U Marijuana (THC) Screen (Not Detect) COVID-19 (NICK) (Negative) COVID-19 Clin Com Discharge Plan Discharge Clinical Impression: Depression, Acute anxiety Patient Disposition: Home, Self-Care Instructions: Depression (ED), Anxiety (ED) Additional Instructions: Follow-up with outpatient psychiatry as scheduled. Thank you for choosing this emergency department for evaluation. Please follow-up with primary care physician as needed. Return to the emergency department for any new, concerning, or worsening symptoms. Prescriptions: No Action metformin 500 mg tablet 1 tab PO BID atorvastatin 10 mg tablet 1 tab PO DAILY verapamil 240 mg tablet extended release 240 mg PO BEDTIME montelukast 10 mg tablet 1 tab PO BEDTIME fluticasone propionate [Flovent HFA] 110 mcg/actuation HFA aerosol inhaler 2 puff inhalation BID albuterol sulfate [Ventolin HFA] 90 mcg/actuation HFA aerosol inhaler 2 puff inhalation Q4H PRN (Reason: Shortness Of Breath) trazodone 150 mg tablet 150 mg PO BEDTIME benztropine 1 mg tablet 1 mg PO DAILY docusate sodium [Colace] 100 mg capsule 100 mg PO BID Qty: 60 0RF hydroxyzine HCl 50 mg tablet 2 tab PO BID chlorpromazine 25 mg tablet 1 tab PO TID nystatin 100,000 unit/gram ointment 1 appl topical QID Qty: 30 0RF fluoxetine 20 mg Capsule 40 mg PO DAILY 30 Days Qty: 60 0RF prazosin 1 mg Capsule 4 mg PO BEDTIME 30 Days Qty: 120 0RF Protocol: Hold for SBP< HOLD for SBP < : 90 ondansetron 4 mg tablet,disintegrating 4 mg PO Q6-8H PRN (Reason: nausea and vomiting) Qty: 14 0RF fluphenazine HCl 2.5 mg tablet 1 tab PO BEDTIME fluphenazine HCl 5 mg tablet 1 tab PO BEDTIME Interventions: ED Discharge Assessment Last Done: 07/22/22 20:01 Discharge Date/Time: 07/22/22 20:10
[2022-07-22 19:20] VITALS: BP 158/90; PULSE 77; RESP 16; TEMP 36.6; O2SAT 97; BMI 40.3
[2022-07-22 19:37] LABS: Appearance Urine Clear; Color Urine Yellow; Glucose Urine UA Negative (Negative); Leukocyte Esterase Urine Negative (Negative); Nitrite Urine Negative (Negative); PH 6.5 (5.0-9.0); Specific Gravity - Urine <= 1.005 (1.005-1.025); UMIC TRIGGER UA YES; Urine Blood Large (3+) (Negative); Urine Ketones Negative (Negative); Urine Protein Negative (Neg-Trace)
[2022-07-22 19:38] LABS: UPreg QC Valid YES; Urine Pregnancy NEGATIVE (NEGATIVE)
[2022-07-22 19:42] LABS: Bacteria Urine None Seen (None Seen); Hyaline Casts Urine 0-2 /LPF (0-2); RBC Urine >20 /HPF (0-2); Squamous Epithelial Cell Urine 0-2 /HPF (0-2); WBC Urine 0-5 /HPF (0-5)
[2022-07-22 19:50] LABS: MANUAL DIFF FLAG NO
[2022-07-22 19:51] LABS: Basophils Percent Auto 0.4 % (0-2); Eosinophils Absolute Auto 0.3 X10*3/uL (0.0-0.4); Eosinophils Percent Auto 3.4 % (0-4); Hematocrit 32.3 % (37.0-47.0); Hemoglobin 10.5 g/dl (12.0-16.0); Imm Gran Abs Auto 0.02 X10*3/uL (0.00-0.03); Imm Gran Pct Auto 0.3 % (0.0-0.4); Lymphocytes Absolute Auto 1.9 X10*3/uL (1.2-4.9); Lymphocytes Percent Auto 24.3 % (20-40); Mean Corpuscular HGB Conc 32.5 g/dl (31.0-35.0); Mean Corpuscular Hemoglobin 27.6 pg (27.0-33.0); Mean Platelet Volume 9.4 fL (9.4-12.3); Monocytes Absolute Auto 0.6 X10*3/uL (0.1-1.2); Monocytes Percent Auto 7.2 % (2-11); Neutrophils Percent Auto 64.4 % (45-73); Platelet Count 258 X10*3/uL (160-400); Red Cell Distribution Width 13.1 % (11.0-16.0); White Blood Count 7.7 X10*3/uL (4.8-10.8)
[2022-07-22 19:54] LABS: COVID-19 Test Negative (Negative)
[2022-07-22 19:55] LABS: Amphetamine Screen Urine Not Detected (Not Detect); Barbiturates, Urine Not Detected (Not Detect); Benzodiazepines Screen Urine Not Detected (Not Detect); Cannabinoid Screen Urine Not Detected (Not Detect); Cocaine Screen Urine Not Detected (Not Detect); Fentanyl, urine Not Detected (Not Detect); Opiate Screen Urine Not Detected (Not Detect); Phencyclidine Screen Urine Not Detected (Not Detect)
--- NOTE | 2022-07-22 19:56 | MHC.CARE ---
Care Team met with pt in pod room 2. Pt stated she arrived to [facility] via EMS due to [facility] telling her to self harm. Pt reports the CAH is manageable at the moment and wants to return to her correction. Pt denied SI/HI/VH and contracted for safety.
[2022-07-22 20:05] LABS: Acetaminophen LAB < 1 mcg/mL (<30); Salicylate < 5.0 mg/dL (15-30)
[2022-07-22 20:08] LABS: Alanine Aminotransferase 16 U/L (0-31); Albumin Level 4.3 g/dL (3.5-5.0); Alkaline Phosphatase 118 U/L (39-117); Anion Gap 15 (12-20); Aspartate Amino Transferase 19 U/L (5-31); Bilirubin Total < 0.2 mg/dL (0.0-1.0); Blood Urea Nitrogen 11 mg/dL (9-16); Calcium 8.9 mg/dL (8.4-10.2); Carbon Dioxide 22 mmol/L (22-29); Chloride 106 mmol/L (96-108); Creatinine Clr Calc Pharmacy 108.2; Estimated Glomerular Filt Rate > 60; Glucose Random 97 mg/dL (60-115); Potassium 3.7 mmol/L (3.3-5.1); Sodium 139 mmol/L (135-145); Total Protein 6.8 g/dL (6.5-8.0)
== END 2022-07-22 20:10 | disposition home or self-care (01) ==
PROVIDERS: Emergency Provider Emergency Medicine Emergency Medical Services; PCP Nurse Practitioner Family
DX: R45.851 Suicidal ideations (principal); F41.9 Anxiety disorder, unspecified; F32.A Depression, unspecified; F60.3 Borderline personality disorder; F43.10 Post-traumatic stress disorder, unspecified; E11.9 Type 2 diabetes mellitus without complications; E78.5 Hyperlipidemia, unspecified; F17.200 Nicotine dependence, unspecified, uncomplicated; Z91.52 Personal history of nonsuicidal self-harm; Z79.02 Long term (current) use of antithrombotics/antiplatelets; Z79.84 Long term (current) use of oral hypoglycemic drugs; Z79.899 Other long term (current) drug therapy; Z20.822 Contact with and (suspected) exposure to COVID-19
CPT/HCPCS: 36415; 80053; 80143; 80179; 80307; 81001; 81025; 85025; 87635; 99282; 99283

== ENCOUNTER 2022-07-24 14:49 | Emergency (ER) | payer MEDICARE, MEDICAID, SELFPAY ==
[2022-07-24 15:02] VITALS: BP 153/89; PULSE 74; PULSE 75; TEMP 36.8; O2SAT 97; BMI 42.5
[2022-07-24 15:49] LABS: COVID-19 Test Negative (Negative)
[2022-07-24 16:13] LABS: Appearance Urine Clear; Color Urine Yellow; Glucose Urine UA Negative (Negative); Leukocyte Esterase Urine Negative (Negative); Nitrite Urine Negative (Negative); Specific Gravity - Urine <= 1.005 (1.005-1.025); UMIC TRIGGER UACC YES; Urine Blood Small (1+) (Negative); Urine Ketones Negative (Negative); Urine Protein Negative (Neg-Trace)
--- NOTE | 2022-07-24 16:16 | ED.GENADULT ---
HPI - General Adult General Chief complaint: Psychiatric Symptoms Stated complaint: SI Time Seen by Provider: 07/24/22 15:25 Source: patient and EMS Mode of arrival: EMS Limitations: no limitations History of Present Illness HPI narrative: 46-year-old female with a borderline personality disorder, depression, anxiety, bipolar 2 with melancholic features, PTSD, DM, GERD?presents today Via EMS with anxiety, and auditory hallucinations.? Patient tells me that she is hearing voices and that were telling her scary things. Reports that she hasnt heard voices in two days. ? She also tells me that she cut her wrist today with a tack she is unable to provide an explanation as to why she did this.? Patient reports she went to the day program today and worked at her job.? Denies SI/HI, visual/tactile hallucinations, alcohol or drug use. No medical complaints at this time. Pt reports the CAH is manageable at the moment and wants to return to her senior care. Pt denied SI/HI/VH and contracted for safety. Related Data Home Medications Medication Instructions Recorded Confirmed atorvastatin 10 mg tablet 1 tab PO DAILY 05/29/21 07/22/22 fluticasone propionate 110 2 puff inhalation BID 05/29/21 07/22/22 mcg/actuation HFA aerosol inhaler (Flovent HFA) metformin 500 mg tablet 1 tab PO BID 05/29/21 07/22/22 montelukast 10 mg tablet 1 tab PO BEDTIME 05/29/21 07/22/22 verapamil 240 mg tablet,extended 240 mg PO BEDTIME 05/29/21 07/20/22 release albuterol sulfate 90 mcg/actuation 2 puff inhalation Q4H PRN 06/15/21 07/22/22 aerosol inhaler (Ventolin HFA) Shortness Of Breath trazodone 150 mg tablet 150 mg PO BEDTIME 11/05/21 07/22/22 benztropine 1 mg tablet 1 mg PO DAILY 12/26/21 07/22/22 fluphenazine HCl 2.5 mg tablet 1 tab PO BEDTIME 03/19/22 07/22/22 fluphenazine HCl 5 mg tablet 1 tab PO BEDTIME 03/19/22 07/22/22 chlorpromazine 25 mg tablet 1 tab PO TID 06/17/22 07/22/22 hydroxyzine HCl 50 mg tablet 2 tab PO BID 06/17/22 07/22/22 Previous Rx's Medication Instructions Recorded fluoxetine 20 mg capsule 40 mg PO DAILY 30 days #60 caps 09/29/21 prazosin 1 mg capsule 4 mg PO BEDTIME 30 days #120 caps 10/18/21 ondansetron 4 mg disintegrating 4 mg PO Q6-8H PRN nausea and 02/04/22 tablet vomiting #14 tabs docusate sodium 100 mg capsule 100 mg PO BID Constipation #60 caps 02/07/22 (Colace) nystatin 100,000 unit/gram topical 1 appl topical QID tinea Cruris 06/30/22 ointment #30 grams Allergies Allergy/AdvReac Type Severity Reaction Status Date / Time Fish Containing Products Allergy Severe ANAPHYLAXIS Verified 05/06/22 20:47 codeine [Codeine] Allergy Unknown RASH Verified 05/06/22 20:47 Penicillins Allergy Unknown RASH Verified 05/06/22 20:47 prednisone [Prednisone] Allergy Unknown RASH Verified 05/06/22 20:47 Sulfa (Sulfonamide Allergy Unknown RASH Verified 05/06/22 20:47 Antibiotics) [Sulfa (Sulfonamides)] azithromycin [AZITHROMYCIN] AdvReac Severe RASH Verified 05/06/22 20:47 ziprasidone [From Geodon] AdvReac Intermediate dysuria, Verified 05/06/22 20:47 rash Review of Systems Review of Systems: All other systems are reviewed and are negative Constitutional: Reports as per HPI and Reports no additional constitutional complaints Eyes: Reports as per HPI and Reports no additional eye complaints Reports system reviewed and no additional complaints, except as documented Cardiovascular: Reports as per HPI and Reports no additional cardiovascular complaints Respiratory: Reports as per HPI and Reports no additional respiratory complaints Gastrointestinal: Reports as per HPI and Reports no additional gastrointestinal complaints Genitourinary: Reports no additional female genitourinary complaints Musculoskeletal: Reports no additional musculoskeletal complaints Skin/Breast: Reports system reviewed and no additional complaints, except as docu Psychiatric: Reports no additional psychiatric complaints Endocrine: Reports no additional endocrine complaints Hematologic/Lymphatic: Reports no additional hematologic/lymphatic complaints Allergic/Immunologic: Reports no additional allergic/immunologic complaints Reports system reviewed and no additional complaints, except as documented and Reports Abnormal speech present PMFSH Past Medical History Medical History Acetaminophen overdose Borderline personality disorder Bronchitis Depression Diabetes type 2, controlled GERD (gastroesophageal reflux disease) History of attempted suicide History of non-suicidal self-harm Hyperlipidemia Hypomagnesemia Major depression MDD (major depressive disorder), recurrent episode, severe Mood disorder Overdose PTSD (post-traumatic stress disorder) Suicide attempt Suicide attempt by acetaminophen overdose Social History Social History Household Members: None Household Members Other:: Patient lives in senior care. 4 in total live in senior care. Housing: Other Housing Other:: senior care Do you presently have visiting nurse or other home services: No Unable to assess alcohol history related to: Unknown Alcohol intake: never Patient Tobacco Use Status: Current everyday Tobacco user Tobacco use type: Cigarette Cigarette Packs Per Day: 1 Cigarettes Per Day: 20 Years Smoked: 20 e-Cigarette/Vaping Use: Never Used Substance Use Type: Marijuana Advance Directives: No Advance Directives Information Provided: No service: No Current occupational status: disabled Sexual orientation: Don't Know Physical Exam ED Vital Signs: Vital Signs - 24 hr 07/24/22 15:02 Temperature 98.2 F Pulse Rate 74 Blood Pressure 153/89 H Pulse Oximetry 97 Oxygen Delivery Method Room Air BMI result Body Mass Index 42.5 Appearance: Alert. Oriented X3. No acute distress. Head: Normal external exam. Normocephalic. Atraumatic. No Harper signs noted. No raccoon eyes noted Eyes: PERRLA. EOMI. Conjunctiva and sclera normal. Eyelids normal. ENT: TM's Normal. Pharynx normal. Uvula midline. Moist mucous membranes. No trismus noted. No drooling noted. No muffled voice noted. Neck: Normal inspection. Neck supple. FROM. No adenopathy. Thyroid Normal. No meningeal signs. No neck mass noted. CVS: Normal heart rate and rhythm. Heart sound normal. No murmurs noted. Pulses normal throughout. Respiratory: No respiratory distress. Painless inspiration. Breath sounds normal. No wheezes/rales/rhonchi noted. Chest nontender. No accessory muscle usage noted or decreased air movement noted. Abdomen: Soft and nontender. Bowel sounds normal in all 4 quadrants. No distention noted. No organomegaly noted. No visible injury noted. Back: No CVA tenderness. Full range of motion noted. Skin: Skin warm and dry. Normal skin color. Normal skin turgor. No rashes/lesions/lacerations noted. Extremities: No lower extremity edema. Extremities exhibit normal range of motion. Extremities nontender. Neuro: Oriented X 3. Cranial nerve exam: II-XII are grossly intact No motor deficit. No sensory deficit. Reflexes normal. Patient Orientation: Person, Place, Time and Situation, okay hygiene and grooming. Fair eye contact, attentive, no tics or tremors. Level of Consciousness: Awake, Appropriate and Alert Patient Behavior: Appropriate, Guarded, Cooperative and Anxious Mood Description: Constricted, Blunted and Apprehensive Affect Description: Constricted, Blunted and Apprehensive Patient Cognition Impaired: No Ability to Follow Directions: Excellent Speech Pattern: Clear, Appropriate and Spontaneous Speech, nonpressured, spontaneous with regular rate and rhythm, normal volume and prosody. No dysarthria. Memory Description: Intact, Immediate Intact and Short Term Intact Hallucinations: None Delusions: Not Present Thought Process: Intact Thought Content: positive for Intact, positive for Logical, denies Suicidal Ideation and denies Homicidal Ideation. Depressive Symptoms: Not present. Judgement and Insight: Limited but adequate. Course Course Course Narrative: Luicta is 46-year-old female who is well known to this facility for frequent return to the Emergency Department for depression patient had history of life-threatening OD on Tylenol in the past today she denies any attempt to commit suicide patient now feels okay after she arrived to the ED and would like to be discharged back to her senior care. Medical Decision Making Lab Data Labs: Lab Results 07/24/22 07/24/22 Range/Units 15:18 16:02 Urine Color Yellow Urine Appearance Clear Urine pH 6.0 (5.0-9.0) Ur Specific [place] <= 1.005 (1.005-1.025) Urine Protein Negative (Neg-Trace) mg/dL Urine Glucose (UA) Negative (Negative) mg/dL Urine Ketones Negative (Negative) mg/dL Urine Blood Small (1+) H (Negative) Urine Nitrite Negative (Negative) Ur Leukocyte Esterase Negative (Negative) COVID-19 (NICK) Negative (Negative) COVID-19 Clin Com See Note Discharge Plan Discharge Clinical Impression: Depression Patient Disposition: Home, Self-Care Instructions: Depression (ED) Prescriptions: No Action metformin 500 mg tablet 1 tab PO BID atorvastatin 10 mg tablet 1 tab PO DAILY verapamil 240 mg tablet extended release 240 mg PO BEDTIME montelukast 10 mg tablet 1 tab PO BEDTIME fluticasone propionate [Flovent HFA] 110 mcg/actuation HFA aerosol inhaler 2 puff inhalation BID albuterol sulfate [Ventolin HFA] 90 mcg/actuation HFA aerosol inhaler 2 puff inhalation Q4H PRN (Reason: Shortness Of Breath) trazodone 150 mg tablet 150 mg PO BEDTIME benztropine 1 mg tablet 1 mg PO DAILY docusate sodium [Colace] 100 mg capsule 100 mg PO BID Qty: 60 0RF hydroxyzine HCl 50 mg tablet 2 tab PO BID chlorpromazine 25 mg tablet 1 tab PO TID nystatin 100,000 unit/gram ointment 1 appl topical QID Qty: 30 0RF fluoxetine 20 mg Capsule 40 mg PO DAILY 30 Days Qty: 60 0RF prazosin 1 mg Capsule 4 mg PO BEDTIME 30 Days Qty: 120 0RF Protocol: Hold for SBP< HOLD for SBP < : 90 ondansetron 4 mg tablet,disintegrating 4 mg PO Q6-8H PRN (Reason: nausea and vomiting) Qty: 14 0RF fluphenazine HCl 2.5 mg tablet 1 tab PO BEDTIME fluphenazine HCl 5 mg tablet 1 tab PO BEDTIME Referrals: Physician,Unknown J [Primary Care Provider] -
--- NOTE | 2022-07-24 16:21 | MHC.CARE ---
Care Team met with pt in Pod room 7. Pt reported she called EMS due to CAH telling her to self harm. Pt reported she wants to go home (shelter) due to feeling better now. Pt denied SI/HI/VH and stated AH are manageable at the moment.
[2022-07-24 16:29] LABS: Amphetamine Screen Urine Not Detected (Not Detect); Barbiturates, Urine Not Detected (Not Detect); Benzodiazepines Screen Urine Not Detected (Not Detect); Cannabinoid Screen Urine Not Detected (Not Detect); Cocaine Screen Urine Not Detected (Not Detect); Fentanyl, urine Not Detected (Not Detect); Opiate Screen Urine Not Detected (Not Detect); Phencyclidine Screen Urine Not Detected (Not Detect)
[2022-07-24 16:55] LABS: Bacteria Urine None Seen (None Seen); Hyaline Casts Urine 0-2 /LPF (0-2); RBC Urine 0-2 /HPF (0-2); Squamous Epithelial Cell Urine 0-2 /HPF (0-2); WBC Urine 0-5 /HPF (0-5)
== END 2022-07-24 16:29 | disposition home or self-care (01) ==
PROVIDERS: Emergency Provider Emergency Medicine
DX: F32.A Depression, unspecified (principal); R45.851 Suicidal ideations; R44.0 Auditory hallucinations; F41.9 Anxiety disorder, unspecified; F60.3 Borderline personality disorder; E11.9 Type 2 diabetes mellitus without complications; E78.5 Hyperlipidemia, unspecified; F43.10 Post-traumatic stress disorder, unspecified; F17.200 Nicotine dependence, unspecified, uncomplicated; Z20.822 Contact with and (suspected) exposure to COVID-19; Z91.52 Personal history of nonsuicidal self-harm; Z79.02 Long term (current) use of antithrombotics/antiplatelets; Z79.84 Long term (current) use of oral hypoglycemic drugs; Z79.899 Other long term (current) drug therapy
CPT/HCPCS: 80307; 81001; 87635; 99284; 99285

== ENCOUNTER 2022-07-25 21:00 | Emergency (ER) | payer MEDICARE, MEDICAID, SELFPAY ==
--- NOTE | 2022-07-25 21:06 | ED_ITS ---
HPI - Psych General Chief Complaint: Psychiatric Symptoms Stated Complaint: crisis Time Seen by Provider: 07/25/22 21:03 Source: patient and EMS Mode of arrival: EMS Limitations: no limitations History of Present Illness HPI Narrative: 46-year-old female presents via EMS for suicidal ideation with plan to overdose on Tylenol. MD complaint: suicidal ideation, feels depressed and anxiety Onset (ago): year(s) Duration: constant History of same: Yes Relieving factors: none Associated psychiatric symptoms: depression, suicidal ideation and auditory hallucinations Associated symptoms: denies other symptoms Treatments prior to arrival: none If self harm: admits thoughts of self harm, has plan and has acted on plan Related Data Home Medications Medication Instructions Recorded Confirmed atorvastatin 10 mg tablet 1 tab PO DAILY 05/29/21 07/25/22 fluticasone propionate 110 2 puff inhalation BID 05/29/21 07/22/22 mcg/actuation HFA aerosol inhaler (Flovent HFA) metformin 500 mg tablet 1 tab PO BID 05/29/21 07/22/22 montelukast 10 mg tablet 1 tab PO BEDTIME 05/29/21 07/25/22 verapamil 240 mg tablet,extended 240 mg PO BEDTIME 05/29/21 07/25/22 release albuterol sulfate 90 mcg/actuation 2 puff inhalation Q4H PRN 06/15/21 07/25/22 aerosol inhaler (Ventolin HFA) Shortness Of Breath trazodone 150 mg tablet 150 mg PO BEDTIME 11/05/21 07/25/22 benztropine 1 mg tablet 1 mg PO DAILY 12/26/21 07/25/22 fluphenazine HCl 2.5 mg tablet 1 tab PO BEDTIME 03/19/22 07/25/22 fluphenazine HCl 5 mg tablet 1 tab PO BEDTIME 03/19/22 07/22/22 chlorpromazine 25 mg tablet 1 tab PO TID 06/17/22 07/25/22 hydroxyzine HCl 50 mg tablet 2 tab PO BID 06/17/22 07/25/22 Previous Rx's Medication Instructions Recorded fluoxetine 20 mg capsule 40 mg PO DAILY 30 days #60 caps 09/29/21 prazosin 1 mg capsule 4 mg PO BEDTIME 30 days #120 caps 10/18/21 ondansetron 4 mg disintegrating 4 mg PO Q6-8H PRN nausea and 02/04/22 tablet vomiting #14 tabs docusate sodium 100 mg capsule 100 mg PO BID Constipation #60 caps 02/07/22 (Colace) nystatin 100,000 unit/gram topical 1 appl topical QID tinea Cruris 06/30/22 ointment #30 grams Allergies Allergy/AdvReac Type Severity Reaction Status Date / Time Fish Containing Products Allergy Severe ANAPHYLAXIS Verified 05/06/22 20:47 codeine [Codeine] Allergy Unknown RASH Verified 05/06/22 20:47 Penicillins Allergy Unknown RASH Verified 05/06/22 20:47 prednisone [Prednisone] Allergy Unknown RASH Verified 05/06/22 20:47 Sulfa (Sulfonamide Allergy Unknown RASH Verified 05/06/22 20:47 Antibiotics) [Sulfa (Sulfonamides)] azithromycin [AZITHROMYCIN] AdvReac Severe RASH Verified 05/06/22 20:47 ziprasidone [From Geodon] AdvReac Intermediate dysuria, Verified 05/06/22 20:47 rash Review of Systems Review of Systems: Constitutional: No Fever, No Chills ENT/Mouth: No Ear Pain, No Nasal Congestion, No sore throat Eyes: No Eye Pain, No Swelling, No Redness Cardiovascular: No Chest Pain, No SOB Respiratory: No Cough, No Sputum, No Dyspnea Gastrointestinal: No Nausea, No Vomiting, No Diarrhea, No Hematochezia, No Melena Genitourinary: No Dysuria, No Urinary Frequency, No Hematuria Musculoskeletal: No Myalgias Skin: No Skin Lesions, No rash Neuro: No Weakness, No Numbness, No Paresthesias, No Dizziness, No Headache Psych: positive Anxiety, positive Depression, positive SI Heme/Lymph: No Lymphadenopathy Endocrine: No Polyuria, No Polydipsia Yes all other systems are reviewed and are negative [facility] Past Medical History Attestation statement: The following information was validated with the patient. Source: old records reviewed Medical History Acetaminophen overdose Borderline personality disorder Bronchitis Depression Diabetes type 2, controlled GERD (gastroesophageal reflux disease) History of attempted suicide History of non-suicidal self-harm Hyperlipidemia Hypomagnesemia Major depression MDD (major depressive disorder), recurrent episode, severe Mood disorder Overdose PTSD (post-traumatic stress disorder) Suicide attempt Suicide attempt by acetaminophen overdose Social History Social History Household Members: None Household Members Other:: Patient lives in [facility]. 4 in total live in [facility]p. Housing: Other Housing Other:: [facility]p Do you presently have visiting nurse or other home services: No Unable to assess alcohol history related to: Unknown Alcohol intake: never Patient Tobacco Use Status: Current everyday Tobacco user Tobacco use type: Cigarette Cigarette Packs Per Day: 1 Cigarettes Per Day: 20 Years Smoked: 20 e-Cigarette/Vaping Use: Never Used Substance Use Type: Marijuana Advance Directives: No Advance Directives Information Provided: No service: No Current occupational status: disabled Sexual orientation: Don't Know Physical Exam Vital Signs: Vital Signs: Last Vital Signs Temp 97.0 F 07/25/22 21:07 Pulse 93 07/25/22 21:07 Resp 18 07/25/22 21:07 Pulse Ox 98 07/25/22 21:07 O2 Del Method 07/25/22 21:07 BMI result Body Mass Index 40.8 Appearance: Alert. Oriented X3. No acute distress. Eyes: Pupils equal, round and reactive to light. ENT: Pharynx normal. Neck: Normal inspection. Neck supple. CVS: Normal heart rate and rhythm. Pulses normal. Respiratory: No respiratory distress. Breath sounds normal. Abdomen: Soft and nontender. Skin: Multiple superficial self-inflicted injuries to arms and legs, numerous scars from self-inflicted injuries to all extremities. Extremities: No lower extremity edema. Gait well-balanced well coordinated. Neuro: No motor deficit. No sensory deficit. Cranial nerves 2 12 intact. Course Course Course Narrative: 46-year-old female presents via EMS evaluation suicidal to Tylenol. Patient states that her auditory hallucinations are telling her to eat it , it meaning Tylenol. Patient presents facility on a daily basis, and has no medical complaints at this time. Patient has multiple wounds that are superficial from self inflicted injuries. None of them were large enough to require medical intervention. Will follow care plan that is in place by N. Labs and BHN consult pending. 23:01 care team consult complete. Plan of care is to discharge home. Patient verbalized understanding of and agrees with care discharge home. Verbalized understanding of signs and symptoms indicating need for emergent intervention. MDM - Psych Differential Diagnosis Differential diagnosis: Likely acute psychosis, suicidal ideation, bipolar disorder, depression and acute anxiety Medical Records Attestation: I reviewed the patient's medical records. Lab Data Attestation: I reviewed the patient's lab results. Result diagrams: 07/25/22 22:07 07/25/22 22:07 Labs: Lab Results 07/25/22 07/25/22 07/25/22 Range/Units 21:23 21:23 21:23 WBC (4.8-10.8) X10*3/uL RBC (4.20-5.50) X10*6/uL Hgb (12.0-16.0) g/dl Hct (37.0-47.0) % MCV (80.0-98.0) fL MCH (27.0-33.0) pg MCHC (31.0-35.0) g/dl RDW (11.0-16.0) % Plt Count (160-400) X10*3/uL MPV (9.4-12.3) fL Immature Gran % (Auto) (0.0-0.4) % Neut % (Auto) (45-73) % Lymph % (Auto) (20-40) % Brooks % (Auto) (2-11) % Eos % (Auto) (0-4) % Baso % (Auto) (0-2) % Lymph # (Auto) (1.2-4.9) X10*3/uL Brooks # (Auto) (0.1-1.2) X10*3/uL Eos # (Auto) (0.0-0.4) X10*3/uL Baso # (Auto) (0.0-0.2) X10*3/uL Abs Immat Gran (auto) (0.00-0.03) X10*3/uL Absolute Neuts (auto) (2.0-8.3) x10*3/uL Absolute Nucleated RBC (0.0-0.012) X10*3/uL Nucleated RBC % (auto) (0.0-0.2) /100WBC Sodium (135-145) mmol/L Potassium (3.3-5.1) mmol/L Chloride (96-108) mmol/L Carbon Dioxide (22-29) mmol/L Anion Gap (12-20) BUN (9-16) mg/dL Creatinine (0.5-1.4) mg/dL Estim Creat Clear Calc Estimated GFR Random Glucose (60-115) mg/dL Calcium (8.4-10.2) mg/dL Total Bilirubin (0.0-1.0) mg/dL AST (5-31) U/L ALT (0-31) U/L Alkaline Phosphatase (39-117) U/L Total Protein (6.5-8.0) g/dL Albumin (3.5-5.0) g/dL Urine Color Yellow Urine Appearance Clear Urine pH 6.0 (5.0-9.0) Ur Specific [place] <= 1.005 (1.005-1.025) Urine Protein Negative (Neg-Trace) mg/dL Urine Glucose (UA) Negative (Negative) mg/dL Urine Ketones Negative (Negative) mg/dL Urine Blood Negative (Negative) Urine Nitrite Negative (Negative) Ur Leukocyte Esterase Negative (Negative) Urine Test NEGATIVE (NEGATIVE) Salicylates (15-30) mg/dL Urine Opiates Screen Not Detected (Not Detect) Urine Fentanyl Screen Not Detected (Not Detect) Acetaminophen (<30) mcg/mL Ur Barbiturates Screen Not Detected (Not Detect) Ur Phencyclidine Scrn Not Detected (Not Detect) Ur Amphetamines Screen Not Detected (Not Detect) U Benzodiazepines Scrn Not Detected (Not Detect) Urine Cocaine Screen Not Detected (Not Detect) U Marijuana (THC) Screen Not Detected (Not Detect) 07/25/22 07/25/22 Range/Units 22:07 22:07 WBC 6.7 (4.8-10.8) X10*3/uL RBC 3.57 L (4.20-5.50) X10*6/uL Hgb 10.0 L (12.0-16.0) g/dl Hct 31.2 L (37.0-47.0) % MCV 87.4 (80.0-98.0) fL MCH 28.0 (27.0-33.0) pg MCHC 32.1 (31.0-35.0) g/dl RDW 13.2 (11.0-16.0) % Plt Count 227 (160-400) X10*3/uL MPV 9.7 (9.4-12.3) fL Immature Gran % (Auto) 0.4 (0.0-0.4) % Neut % (Auto) 57.4 (45-73) % Lymph % (Auto) 29.5 (20-40) % Brooks % (Auto) 8.0 (2-11) % Eos % (Auto) 4.3 H (0-4) % Baso % (Auto) 0.4 (0-2) % Lymph # (Auto) 2.0 (1.2-4.9) X10*3/uL [place] # (Auto) 0.5 (0.1-1.2) X10*3/uL Eos # (Auto) 0.3 (0.0-0.4) X10*3/uL Baso # (Auto) 0.0 (0.0-0.2) X10*3/uL Abs Immat Gran (auto) 0.03 (0.00-0.03) X10*3/uL Absolute Neuts (auto) 3.9 (2.0-8.3) x10*3/uL Absolute Nucleated RBC 0.000 (0.0-0.012) X10*3/uL Nucleated RBC % (auto) 0.0 (0.0-0.2) /100WBC Sodium 141 (135-145) mmol/L Potassium 3.7 (3.3-5.1) mmol/L Chloride 106 (96-108) mmol/L Carbon Dioxide 24 (22-29) mmol/L Anion Gap 15 (12-20) BUN 9 (9-16) mg/dL Creatinine 0.72 (0.5-1.4) mg/dL Estim Creat Clear Calc 119.6 Estimated GFR > 60 Random Glucose 94 (60-115) mg/dL Calcium 8.6 (8.4-10.2) mg/dL Total Bilirubin 0.2 (0.0-1.0) mg/dL AST 13 (5-31) U/L ALT 14 (0-31) U/L Alkaline Phosphatase 97 (39-117) U/L Total Protein 6.1 L (6.5-8.0) g/dL Albumin 3.9 (3.5-5.0) g/dL Urine Color Urine Appearance Urine pH (5.0-9.0) Ur Specific [place] (1.005-1.025) Urine Protein (Neg-Trace) mg/dL Urine Glucose (UA) (Negative) mg/dL Urine Ketones (Negative) mg/dL Urine Blood (Negative) Urine Nitrite (Negative) Ur Leukocyte Esterase (Negative) Urine Test (NEGATIVE) Salicylates < 5.0 L (15-30) mg/dL Urine Opiates Screen (Not Detect) Urine Fentanyl Screen (Not Detect) Acetaminophen < 1 (<30) mcg/mL Ur Barbiturates Screen (Not Detect) Ur Phencyclidine Scrn (Not Detect) Ur Amphetamines Screen (Not Detect) U Benzodiazepines Scrn (Not Detect) Urine Cocaine Screen (Not Detect) U Marijuana (THC) Screen (Not Detect) Discharge Plan Discharge Clinical Impression: Major depression, Suicidal ideation, Bipolar disorder, Depression, Acute anxiety Patient Disposition: Home, Self-Care Instructions: Anxiety (ED), Bipolar Disorder (ED), Depression (ED) Additional Instructions: Follow-up with outpatient psychiatry as scheduled. Return to the emergency department for any new, concerning, worsening symptoms Prescriptions: No Action metformin 500 mg tablet 1 tab PO BID atorvastatin 10 mg tablet 1 tab PO DAILY verapamil 240 mg tablet extended release 240 mg PO BEDTIME montelukast 10 mg tablet 1 tab PO BEDTIME fluticasone propionate [Flovent HFA] 110 mcg/actuation HFA aerosol inhaler 2 puff inhalation BID albuterol sulfate [Ventolin HFA] 90 mcg/actuation HFA aerosol inhaler 2 puff inhalation Q4H PRN (Reason: Shortness Of Breath) trazodone 150 mg tablet 150 mg PO BEDTIME benztropine 1 mg tablet 1 mg PO DAILY docusate sodium [Colace] 100 mg capsule 100 mg PO BID Qty: 60 0RF hydroxyzine HCl 50 mg tablet 2 tab PO BID chlorpromazine 25 mg tablet 1 tab PO TID nystatin 100,000 unit/gram ointment 1 appl topical QID Qty: 30 0RF fluoxetine 20 mg Capsule 40 mg PO DAILY 30 Days Qty: 60 0RF prazosin 1 mg Capsule 4 mg PO BEDTIME 30 Days Qty: 120 0RF Protocol: Hold for SBP< HOLD for SBP < : 90 ondansetron 4 mg tablet,disintegrating 4 mg PO Q6-8H PRN (Reason: nausea and vomiting) Qty: 14 0RF fluphenazine HCl 2.5 mg tablet 1 tab PO BEDTIME fluphenazine HCl 5 mg tablet 1 tab PO BEDTIME
[2022-07-25 21:07] VITALS: PULSE 93; RESP 18; TEMP 36.1; O2SAT 98; BMI 40.8
[2022-07-25 21:34] LABS: UPreg QC Valid YES; Urine Pregnancy NEGATIVE (NEGATIVE)
[2022-07-25 21:35] LABS: Appearance Urine Clear; Color Urine Yellow; Glucose Urine UA Negative (Negative); Leukocyte Esterase Urine Negative (Negative); Nitrite Urine Negative (Negative); Specific Gravity - Urine <= 1.005 (1.005-1.025); Urine Blood Negative (Negative); Urine Ketones Negative (Negative); Urine Protein Negative (Neg-Trace)
[2022-07-25 21:50] LABS: Amphetamine Screen Urine Not Detected (Not Detect); Barbiturates, Urine Not Detected (Not Detect); Benzodiazepines Screen Urine Not Detected (Not Detect); Cannabinoid Screen Urine Not Detected (Not Detect); Cocaine Screen Urine Not Detected (Not Detect); Fentanyl, urine Not Detected (Not Detect); Opiate Screen Urine Not Detected (Not Detect); Phencyclidine Screen Urine Not Detected (Not Detect)
[2022-07-25 22:12] LABS: MANUAL DIFF FLAG NO
[2022-07-25 22:13] LABS: Basophils Percent Auto 0.4 % (0-2); Eosinophils Absolute Auto 0.3 X10*3/uL (0.0-0.4); Eosinophils Percent Auto 4.3 % (0-4); Hematocrit 31.2 % (37.0-47.0); Imm Gran Abs Auto 0.03 X10*3/uL (0.00-0.03); Imm Gran Pct Auto 0.4 % (0.0-0.4); Lymphocytes Percent Auto 29.5 % (20-40); Mean Corpuscular HGB Conc 32.1 g/dl (31.0-35.0); Mean Corpuscular Volume 87.4 fL (80.0-98.0); Mean Platelet Volume 9.7 fL (9.4-12.3); Monocytes Absolute Auto 0.5 X10*3/uL (0.1-1.2); Neutrophils Absolute Auto 3.9 x10*3/uL (2.0-8.3); Neutrophils Percent Auto 57.4 % (45-73); Platelet Count 227 X10*3/uL (160-400); Red Blood Count 3.57 X10*6/uL (4.20-5.50); Red Cell Distribution Width 13.2 % (11.0-16.0); White Blood Count 6.7 X10*3/uL (4.8-10.8)
--- NOTE | 2022-07-25 22:17 | PC.NURSE ---
Patient requesting to go home team notified. She is feeling safe.
--- NOTE | 2022-07-25 22:25 | MHC.CARE ---
Pt is a 46 year old female who is well known to the CARE team and [facility]. Pt arrived by ambulance secondary to complaints of command auditory hallucinations and engagement in self harm via cutting. This copywriter met with the pt in the milieu of the pod at the pt's request. She reported that the voices were screaming in her head telling her to cut. Superficial lacerations were noted her left forearm. She denied experiencing any SI/HI and denied experiencing active auditory hallucinations at this time. She reported that she was supposed to see her therapist today, however she spent the majority of the day sleeping and commented that nobody woke her up to tell her about the appointment. 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 At this time there are no imminent concerns re: the pt's safety and does not require further evaluation. ED provider has been updated.
[2022-07-25 22:31] LABS: Acetaminophen LAB < 1 mcg/mL (<30); Alanine Aminotransferase 14 U/L (0-31); Albumin Level 3.9 g/dL (3.5-5.0); Alkaline Phosphatase 97 U/L (39-117); Anion Gap 15 (12-20); Aspartate Amino Transferase 13 U/L (5-31); Bilirubin Total 0.2 mg/dL (0.0-1.0); Blood Urea Nitrogen 9 mg/dL (9-16); Calcium 8.6 mg/dL (8.4-10.2); Carbon Dioxide 24 mmol/L (22-29); Chloride 106 mmol/L (96-108); Creatinine Clr Calc Pharmacy 119.6; Estimated Glomerular Filt Rate > 60; Glucose Random 94 mg/dL (60-115); Potassium 3.7 mmol/L (3.3-5.1); Salicylate < 5.0 mg/dL (15-30); Sodium 141 mmol/L (135-145); Total Protein 6.1 g/dL (6.5-8.0)
[2022-07-25 23:14] LABS: COVID-19 Test Negative (Negative); IDNOW Serial# 16C4AD1C
== END 2022-07-25 23:17 | disposition home or self-care (01) ==
PROVIDERS: Emergency Provider Internal Medicine
DX: F33.1 Major depressive disorder, recurrent, moderate (principal); R45.851 Suicidal ideations; R44.0 Auditory hallucinations; F17.210 Nicotine dependence, cigarettes, uncomplicated; F41.1 Generalized anxiety disorder; F43.0 Acute stress reaction; Z20.822 Contact with and (suspected) exposure to COVID-19; Z71.6 Tobacco abuse counseling; Z79.899 Other long term (current) drug therapy
CPT/HCPCS: 36415; 80053; 80143; 80179; 80307; 81003; 81025; 85025; 87635; 99282; 99284

== ENCOUNTER 2022-07-27 17:55 | Emergency (ER) | payer MEDICARE, MEDICAID, SELFPAY ==
--- NOTE | 2022-07-27 18:00 | ED.PSYCH ---
HPI - Psych General Chief Complaint: Psychiatric Symptoms Stated Complaint: crisis SI Time Seen by Provider: 07/27/22 18:24 Source: patient and EMS Mode of arrival: EMS Limitations: no limitations History of Present Illness HPI Narrative: This is a 46-year-old female past medical history significant personality depression bipolar 2 with melancholic peatures, PTSD, DM, GERD presents today with vague suicidal thoughts, auditory hallucinations times a few hours. Patient tells me that she wanted to overdose on aspirin however tells me she was not going to do it, she tells me that she mention this to her friend who call the pumping supervisor. She reports hearing voices that are telling her to hurt herself. She tells me she did not actually take anything. Denies drugs, alcohol. Uses tobacco daily. Med compliant. Denies medical complaints. MD complaint: suicidal ideation, feels depressed and anxiety Related Data Home Medications Medication Instructions Recorded Confirmed atorvastatin 10 mg tablet 1 tab PO DAILY 05/29/21 07/25/22 fluticasone propionate 110 2 puff inhalation BID 05/29/21 07/22/22 mcg/actuation HFA aerosol inhaler (Flovent HFA) metformin 500 mg tablet 1 tab PO BID 05/29/21 07/22/22 montelukast 10 mg tablet 1 tab PO BEDTIME 05/29/21 07/25/22 verapamil 240 mg tablet,extended 240 mg PO BEDTIME 05/29/21 07/25/22 release albuterol sulfate 90 mcg/actuation 2 puff inhalation Q4H PRN 06/15/21 07/25/22 aerosol inhaler (Ventolin HFA) Shortness Of Breath trazodone 150 mg tablet 150 mg PO BEDTIME 11/05/21 07/25/22 benztropine 1 mg tablet 1 mg PO DAILY 12/26/21 07/25/22 fluphenazine HCl 2.5 mg tablet 1 tab PO BEDTIME 03/19/22 07/25/22 fluphenazine HCl 5 mg tablet 1 tab PO BEDTIME 03/19/22 07/22/22 chlorpromazine 25 mg tablet 1 tab PO TID 06/17/22 07/25/22 hydroxyzine HCl 50 mg tablet 2 tab PO BID 06/17/22 07/25/22 Previous Rx's Medication Instructions Recorded fluoxetine 20 mg capsule 40 mg PO DAILY 30 days #60 caps 09/29/21 prazosin 1 mg capsule 4 mg PO BEDTIME 30 days #120 caps 10/18/21 ondansetron 4 mg disintegrating 4 mg PO Q6-8H PRN nausea and 02/04/22 tablet vomiting #14 tabs docusate sodium 100 mg capsule 100 mg PO BID Constipation #60 caps 02/07/22 (Colace) nystatin 100,000 unit/gram topical 1 appl topical QID tinea Cruris 06/30/22 ointment #30 grams Allergies Allergy/AdvReac Type Severity Reaction Status Date / Time Fish Containing Products Allergy Severe ANAPHYLAXIS Verified 05/06/22 20:47 codeine [Codeine] Allergy Unknown RASH Verified 05/06/22 20:47 Penicillins Allergy Unknown RASH Verified 05/06/22 20:47 prednisone [Prednisone] Allergy Unknown RASH Verified 05/06/22 20:47 Sulfa (Sulfonamide Allergy Unknown RASH Verified 05/06/22 20:47 Antibiotics) [Sulfa (Sulfonamides)] azithromycin [AZITHROMYCIN] AdvReac Severe RASH Verified 05/06/22 20:47 ziprasidone [From Geodon] AdvReac Intermediate dysuria, Verified 05/06/22 20:47 rash Review of Systems Review of Systems: Constitutional : No Fever, No Chills ENT/Mouth : No Ear Pain, No Nasal Congestion, No sore throat Eyes: No Eye Pain, No Swelling, No Redness Cardiovascular : No Chest Pain, No SOB Respiratory : No Cough, No Sputum, No Dyspnea Gastrointestinal : No Nausea, No Vomiting, No Diarrhea, No Hematochezia, No Melena Genitourinary : No Dysuria, No Urinary Frequency, No Hematuria Musculoskeletal : No Myalgias Skin : No Skin Lesions, No rash Neuro : No Weakness, No Numbness, No Paresthesias, No Dizziness, No Headache Psych : positive Anxiety, positive Depression, positive SI, No HI All other systems reviewed and are negative Yes all other systems are reviewed and are negative [facility] Past Medical History Attestation statement: The following information was validated with the patient. Source: old records reviewed and nursing notes reviewed Medical History Acetaminophen overdose Borderline personality disorder Bronchitis Depression Diabetes type 2, controlled GERD (gastroesophageal reflux disease) History of attempted suicide History of non-suicidal self-harm Hyperlipidemia Hypomagnesemia Major depression MDD (major depressive disorder), recurrent episode, severe Mood disorder Overdose PTSD (post-traumatic stress disorder) Suicide attempt Suicide attempt by acetaminophen overdose Social History Social History Household Members: None Household Members Other:: Patient lives in nursing home. 4 in total live in nursing home. Housing: Other Housing Other:: nursing home Do you presently have visiting nurse or other home services: No Unable to assess alcohol history related to: Unknown Alcohol intake: never Patient Tobacco Use Status: Current everyday Tobacco user Tobacco use type: Cigarette Cigarette Packs Per Day: 1 Cigarettes Per Day: 20 Years Smoked: 20 e-Cigarette/Vaping Use: Never Used Substance Use Type: Marijuana Advance Directives: No Advance Directives Information Provided: No service: No Current occupational status: disabled Sexual orientation: Don't Know Physical Exam Vital Signs: Vital Signs: Last Vital Signs Temp 98.2 F 07/27/22 18:13 Pulse 76 07/27/22 18:13 Resp 18 07/27/22 18:13 BP 144/85 H 07/27/22 18:13 Pulse Ox 96 07/27/22 18:13 O2 Del Method 07/27/22 18:13 BMI result Body Mass Index 34.9 vss Appearance: Alert.? Oriented X3.? No acute distress.? Head: Normocephalic, atraumatic, no step-offs or deformities Eyes: Pupils equal, round and reactive to light.? ENT: Pharynx normal.??External ears normal, TMs normal bilaterally and EAC's normal. No pain with manipulation of external ears bilaterally. No mastoid tenderness. Neck: Normal inspection.? Neck supple.? CVS: Normal heart rate and rhythm.? Pulses normal.? Respiratory: No respiratory distress.? Breath sounds normal.? Abdomen: Soft and nontender.? Skin: Skin warm and dry.? Normal skin color.? Normal skin turgor.? Extremities: No lower extremity edema.? No calf ttp. 5/5 strength to bilateral upper and lower extremities Neuro: Oriented X 3.? No motor deficit.? No sensory deficit. CN 2-12 intact Course Reevaluation(s) Reevaluation #1: Urine toxicology negative. UA negative. COVID negative. Patient refusing lab draw at this time. Tells me that she is no longer hearing voices, not suicidal or homicidal. She was evaluated by the behavioral health team who feels as though patient can go home to nursing home. I spoke to Francine from [facility] team who agrees w/ plan. At this time I feel comfortable discharge home with prompt PCP, outpatient provider follow-up and follow-up with the behavioral health team. Time: 20:01 MDM - Psych MDM Narrative Medical decision making narrative: 1804 46 year old female presents w/ anxiety, auditory/ visual hallucinations and vague si with plan to OD on asa X few hours. PE- benign [facility] pscyh will rule out medical causes. Plan medical clearance and evaluation by N. Medical Records Attestation: I reviewed the patient's medical records. Lab Data Attestation: I reviewed the patient's lab results. Labs: Lab Results 07/27/22 07/27/22 07/27/22 Range/Units 18:35 18:35 18:35 Urine Color Yellow Urine Appearance Clear Urine pH 5.5 (5.0-9.0) Ur Specific Oriental <= 1.005 (1.005-1.025) Urine Protein Negative (Neg-Trace) mg/dL Urine Glucose (UA) Negative (Negative) mg/dL Urine Ketones Negative (Negative) mg/dL Urine Blood Negative (Negative) Urine Nitrite Negative (Negative) Ur Leukocyte Esterase Trace H (Negative) Urine RBC 0-2 (0-2) /HPF Urine WBC 0-5 (0-5) /HPF Ur Squamous Epith Cells 0-2 (0-2) /HPF Urine Bacteria None Seen (None Seen) Hyaline Casts 0-2 (0-2) /LPF Urine Opiates Screen Not Detected (Not Detect) Urine Fentanyl Screen Not Detected (Not Detect) Ur Barbiturates Screen Not Detected (Not Detect) Ur Phencyclidine Scrn Not Detected (Not Detect) Ur Amphetamines Screen Not Detected (Not Detect) U Benzodiazepines Scrn Not Detected (Not Detect) Urine Cocaine Screen Not Detected (Not Detect) U Marijuana (THC) Screen Not Detected (Not Detect) COVID-19 (NICK) Negative (Negative) COVID-19 Clin Com See Note Critical Care Time Critical Care Time Critical Care Time: No Discharge Plan Discharge Clinical Impression: Hallucinations, Anxiety Patient Disposition: Home, Self-Care Instructions: Anxiety (ED), Hallucinations (ED) Additional Instructions: Take your medications as prescribed. If you were prescribed antibiotics today, it is important that you take your medication to their entirety, do not skip any doses, do not finish them early. Follow-up with your primary care provider this week. Follow-up with the behavioral health team. Return to the emergency department with new or worsening symptoms. Such as fevers, chills, chest pain, shortness of breath, nausea, vomiting, dizziness, headache, vision changes, lethargy In case of emergency call 911 Prescriptions: No Action metformin 500 mg tablet 1 tab PO BID atorvastatin 10 mg tablet 1 tab PO DAILY verapamil 240 mg tablet extended release 240 mg PO BEDTIME montelukast 10 mg tablet 1 tab PO BEDTIME fluticasone propionate [Flovent HFA] 110 mcg/actuation HFA aerosol inhaler 2 puff inhalation BID albuterol sulfate [Ventolin HFA] 90 mcg/actuation HFA aerosol inhaler 2 puff inhalation Q4H PRN (Reason: Shortness Of Breath) trazodone 150 mg tablet 150 mg PO BEDTIME benztropine 1 mg tablet 1 mg PO DAILY docusate sodium [Colace] 100 mg capsule 100 mg PO BID Qty: 60 0RF hydroxyzine HCl 50 mg tablet 2 tab PO BID chlorpromazine 25 mg tablet 1 tab PO TID nystatin 100,000 unit/gram ointment 1 appl topical QID Qty: 30 0RF fluoxetine 20 mg Capsule 40 mg PO DAILY 30 Days Qty: 60 0RF prazosin 1 mg Capsule 4 mg PO BEDTIME 30 Days Qty: 120 0RF Protocol: Hold for SBP< HOLD for SBP < : 90 ondansetron 4 mg tablet,disintegrating 4 mg PO Q6-8H PRN (Reason: nausea and vomiting) Qty: 14 0RF fluphenazine HCl 2.5 mg tablet 1 tab PO BEDTIME fluphenazine HCl 5 mg tablet 1 tab PO BEDTIME Referrals: [facility] [Provider Group] - 1 day ED Physician,Generic [Physician] - 2 days
[2022-07-27 18:13] VITALS: BP 140/100; BP 144/85; PULSE 76; PULSE 90; RESP 18; TEMP 36.8; O2SAT 96; O2SAT 97; BMI 34.9
[2022-07-27] MEDS: LORazepam 1 MG TABLET PO (18:22)
[2022-07-27 18:44] LABS: Appearance Urine Clear; Color Urine Yellow; Glucose Urine UA Negative (Negative); Leukocyte Esterase Urine Trace (Negative); Nitrite Urine Negative (Negative); PH 5.5 (5.0-9.0); Specific Gravity - Urine <= 1.005 (1.005-1.025); UMIC TRIGGER UACC YES; Urine Blood Negative (Negative); Urine Ketones Negative (Negative); Urine Protein Negative (Neg-Trace)
[2022-07-27 18:51] LABS: Bacteria Urine None Seen (None Seen); Hyaline Casts Urine 0-2 /LPF (0-2); RBC Urine 0-2 /HPF (0-2); Squamous Epithelial Cell Urine 0-2 /HPF (0-2); WBC Urine 0-5 /HPF (0-5)
[2022-07-27 18:57] LABS: COVID-19 Test Negative (Negative); IDNOW Serial# 55D5AD1C
[2022-07-27 18:58] LABS: Amphetamine Screen Urine Not Detected (Not Detect); Barbiturates, Urine Not Detected (Not Detect); Benzodiazepines Screen Urine Not Detected (Not Detect); Cannabinoid Screen Urine Not Detected (Not Detect); Cocaine Screen Urine Not Detected (Not Detect); Fentanyl, urine Not Detected (Not Detect); Opiate Screen Urine Not Detected (Not Detect); Phencyclidine Screen Urine Not Detected (Not Detect)
--- NOTE | 2022-07-27 19:32 | MHC.CARE ---
Care Team met with pt in pod room 7. Pt reported her friend contacted EMS and called the shelter due to pt making threats to overdose on aspirin. Pt stated she feels calm and wants to return home (shelter). Pt denied SI/HI/VH and stated voices are manageable.
--- NOTE | 2022-07-27 20:05 | PC.NURSE ---
this pt refuses blood draw before being d/c. RN and Provider aware
== END 2022-07-27 20:23 | disposition home or self-care (01) ==
PROVIDERS: Physician Assistant; Emergency Provider Emergency Medicine
DX: R45.851 Suicidal ideations (principal); R44.0 Auditory hallucinations; F41.9 Anxiety disorder, unspecified; Z20.822 Contact with and (suspected) exposure to COVID-19; F60.3 Borderline personality disorder; F32.9 Major depressive disorder, single episode, unspecified; E11.9 Type 2 diabetes mellitus without complications; E78.5 Hyperlipidemia, unspecified; F43.10 Post-traumatic stress disorder, unspecified; F17.210 Nicotine dependence, cigarettes, uncomplicated; F12.90 Cannabis use, unspecified, uncomplicated; Z91.52 Personal history of nonsuicidal self-harm; Z79.02 Long term (current) use of antithrombotics/antiplatelets; Z79.84 Long term (current) use of oral hypoglycemic drugs; Z79.899 Other long term (current) drug therapy
CPT/HCPCS: 80307; 81001; 87635; 99283; 99284

== ENCOUNTER 2022-07-29 18:31 | Inpatient (IN) | payer MEDICARE, MEDICAID, SELFPAY ==
--- NOTE | 2022-07-29 | ECG_ITS ---
Test Reason : OVERDOSE Blood Pressure : / mmHG Vent. Rate : 115 BPM Atrial Rate : 115 BPM P-R Int : 154 ms QRS Dur : 090 ms QT Int : 354 ms P-R-T Axes : 041 024 049 degrees QTc Int : 489 ms Sinus tachycardia Possible Left atrial enlargement Otherwise normal ECG When compared with ECG of 23-MAY-2022 20:45, No significant change was found Referred By: Viki Quintero Electronically Signed By:JAMAL RODRIGUEZ MD
[2022-07-29 18:41] VITALS: BP 200/100; PULSE 89; O2SAT 98
[2022-07-29 18:45] VITALS: BP 135/56; PULSE 132; RESP 18; TEMP 36.8; O2SAT 96; BMI 38.9
--- NOTE | 2022-07-29 18:48 | ED_ITS ---
HPI - Overdose General Chief Complaint: Overdose Stated Complaint: OVERDOSE Time Seen by Provider: 07/29/22 18:37 Source: patient and EMS Mode of arrival: EMS Limitations: no limitations History of Present Illness HPI Narrative: 46-year-old female with history of major depression, borderline personality disorder with auditory hallucinations, anxiety, PTSD, history of suicide attempts, self cutting and Tylenol overdose in the past who presents to the ER for evaluation after she ingested approximately 59969 mg of Tylenol at 18:00 today and attempt to kill herself. She states she took about 1/2 of a bottle of extra strength tylenol 500 mg, approximately 50 tablets. She waited 10-15 minutes to tell anyone in her longterm. Nine was called and she brought to the ER for further evaluation. On arrival to the ER patient was noted to be flushed, and covered in hives on her anterior and posterior trunk. She denies being itchy, any allergic reactions anything in the past. She denied any other ingestion. MD complaint: intentional overdose Onset (ago): minute(s) (45) Time: 18:00 Intent: suicide attempt How Overdose Was Discovered: called 911 Associated symptoms: depression and hallucinations Treatments Prior to Arrival: none Related Data Home Medications Medication Instructions Recorded Confirmed atorvastatin 10 mg tablet 1 tab PO DAILY 05/29/21 07/25/22 fluticasone propionate 110 2 puff inhalation BID 05/29/21 07/22/22 mcg/actuation HFA aerosol inhaler (Flovent HFA) metformin 500 mg tablet 1 tab PO BID 05/29/21 07/22/22 montelukast 10 mg tablet 1 tab PO BEDTIME 05/29/21 07/25/22 verapamil 240 mg tablet,extended 240 mg PO BEDTIME 05/29/21 07/25/22 release albuterol sulfate 90 mcg/actuation 2 puff inhalation Q4H PRN 06/15/21 07/25/22 aerosol inhaler (Ventolin HFA) Shortness Of Breath trazodone 150 mg tablet 150 mg PO BEDTIME 11/05/21 07/25/22 benztropine 1 mg tablet 1 mg PO DAILY 12/26/21 07/25/22 fluphenazine HCl 2.5 mg tablet 1 tab PO BEDTIME 03/19/22 07/25/22 fluphenazine HCl 5 mg tablet 1 tab PO BEDTIME 03/19/22 07/22/22 chlorpromazine 25 mg tablet 1 tab PO TID 06/17/22 07/25/22 hydroxyzine HCl 50 mg tablet 2 tab PO BID 06/17/22 07/25/22 Previous Rx's Medication Instructions Recorded fluoxetine 20 mg capsule 40 mg PO DAILY 30 days #60 caps 09/29/21 prazosin 1 mg capsule 4 mg PO BEDTIME 30 days #120 caps 10/18/21 ondansetron 4 mg disintegrating 4 mg PO Q6-8H PRN nausea and 02/04/22 tablet vomiting #14 tabs docusate sodium 100 mg capsule 100 mg PO BID Constipation #60 caps 02/07/22 (Colace) nystatin 100,000 unit/gram topical 1 appl topical QID tinea Cruris 06/30/22 ointment #30 grams Allergies Allergy/AdvReac Type Severity Reaction Status Date / Time Fish Containing Products Allergy Severe ANAPHYLAXIS Verified 05/06/22 20:47 codeine [Codeine] Allergy Unknown RASH Verified 05/06/22 20:47 Penicillins Allergy Unknown RASH Verified 05/06/22 20:47 prednisone [Prednisone] Allergy Unknown RASH Verified 05/06/22 20:47 Sulfa (Sulfonamide Allergy Unknown RASH Verified 05/06/22 20:47 Antibiotics) [Sulfa (Sulfonamides)] azithromycin [AZITHROMYCIN] AdvReac Severe RASH Verified 05/06/22 20:47 ziprasidone [From Geodon] AdvReac Intermediate dysuria, Verified 05/06/22 20:47 rash PMFSH Past Medical History Medical History Acetaminophen overdose Borderline personality disorder Bronchitis Depression Diabetes type 2, controlled GERD (gastroesophageal reflux disease) History of attempted suicide History of non-suicidal self-harm Hyperlipidemia Hypomagnesemia Major depression MDD (major depressive disorder), recurrent episode, severe Mood disorder Overdose PTSD (post-traumatic stress disorder) Suicide attempt Suicide attempt by acetaminophen overdose Social History Social History Household Members: None Household Members Other:: Patient lives in longterm. 4 in total live in longterm. Housing: Other Housing Other:: longterm Do you presently have visiting nurse or other home services: No Unable to assess alcohol history related to: Unknown Alcohol intake: never Patient Tobacco Use Status: Current everyday Tobacco user Tobacco use type: Cigarette Cigarette Packs Per Day: 1 Cigarettes Per Day: 20 Years Smoked: 20 e-Cigarette/Vaping Use: Never Used Substance Use Type: Marijuana Advance Directives: No Advance Directives Information Provided: No service: No Current occupational status: disabled Sexual orientation: Don't Know Physical Exam Vital Signs: Vital Signs: Last Vital Signs Temp 98.2 F 07/29/22 18:45 Pulse 132 H 07/29/22 18:45 Resp 18 07/29/22 18:45 BP 135/56 L 07/29/22 18:45 Pulse Ox 96 07/29/22 18:45 O2 Del Method 07/29/22 18:45 BMI result Body Mass Index 38.9 Course Course Course Narrative: 46 yo female well known to this ER with exanthem psychiatric history and history of Tylenol overdose in the past who presents to the ER for evaluation with tidal line all overdose approximately 45 minutes ago. She ingested approximately 04109 mg of acetaminophen at 18:00 today. No nausea or vomiting. No right upper quadrant. On arrival. She does have hives all over her toes are on lower extremities. Her face is flushed but her airway is patent lungs are clear. Unclear etiology of the hives. Will treat with IV Benadryl, history of rash with prednisone. Given her toxic ingestion will empirically start NAC. Labs pending. Spoke with Poison Control who agree with NAC. Reevaluation(s) Reevaluation #1: Acetaminophen level critically high at 236. NAC infused. LFTs, coags and ammonia are normal. Benadryl improved rash significantly. 10pm (4 hour) ingestion labs ordered. Will plan for admission for further management and monitoring. MDM - Overdose Medical Records Attestation: I reviewed the patient's medical records. Lab Data Attestation: I reviewed the patient's lab results. Result diagrams: 07/29/22 19:47 07/29/22 19:47 Labs: Lab Results 07/29/22 07/29/22 07/29/22 Range/Units 19:47 19:47 19:47 WBC 6.6 (4.8-10.8) X10*3/uL RBC 3.84 L (4.20-5.50) X10*6/uL Hgb 10.6 L (12.0-16.0) g/dl Hct 32.3 L (37.0-47.0) % MCV 84.1 (80.0-98.0) fL MCH 27.6 (27.0-33.0) pg MCHC 32.8 (31.0-35.0) g/dl RDW 13.2 (11.0-16.0) % Plt Count 266 (160-400) X10*3/uL MPV 9.8 (9.4-12.3) fL Immature Gran % (Auto) 0.3 (0.0-0.4) % Neut % (Auto) 59.7 (45-73) % Lymph % (Auto) 27.9 (20-40) % [place] % (Auto) 8.1 (2-11) % Eos % (Auto) 3.8 (0-4) % Baso % (Auto) 0.2 (0-2) % Lymph # (Auto) 1.8 (1.2-4.9) X10*3/uL [place] # (Auto) 0.5 (0.1-1.2) X10*3/uL Eos # (Auto) 0.3 (0.0-0.4) X10*3/uL Baso # (Auto) 0.0 (0.0-0.2) X10*3/uL Abs Immat Gran (auto) 0.02 (0.00-0.03) X10*3/uL Absolute Neuts (auto) 3.9 (2.0-8.3) x10*3/uL Absolute Nucleated RBC 0.000 (0.0-0.012) X10*3/uL Nucleated RBC % (auto) 0.0 (0.0-0.2) /100WBC PT 11.6 (10.0-13.1) SEC INR 1.0 (0.9-1.1) APTT 33.0 (26.0-36.4) SEC VBG pH (7.32-7.43) VBG pCO2 mmHg VBG pO2 mmHg VBG HCO3 (22-26) mmol/L VBG O2 Saturation % VBG Base Excess mmol/L Sodium 140 (135-145) mmol/L Potassium 3.6 (3.3-5.1) mmol/L Chloride 104 (96-108) mmol/L Carbon Dioxide 22 (22-29) mmol/L Anion Gap 18 (12-20) BUN 10 (9-16) mg/dL Creatinine 0.91 (0.5-1.4) mg/dL Estim Creat Clear Calc 92.1 Estimated GFR > 60 Random Glucose 151 H (60-115) mg/dL Calcium 9.0 (8.4-10.2) mg/dL Magnesium 1.5 L (1.6-2.6) mg/dL Total Bilirubin 0.2 (0.0-1.0) mg/dL Direct Bilirubin < 0.2 (0.0-0.5) mg/dL AST 13 (5-31) U/L ALT 12 (0-31) U/L Alkaline Phosphatase 100 (39-117) U/L Ammonia (13-55) umol/L Total Protein 6.5 (6.5-8.0) g/dL Albumin 4.1 (3.5-5.0) g/dL Lipase 22 (8-78) U/L Salicylates < 5.0 L (15-30) mg/dL Acetaminophen 236 H* (<30) mcg/mL Ethyl Alcohol mg/dL 07/29/22 07/29/22 07/29/22 Range/Units 19:47 19:47 19:54 WBC (4.8-10.8) X10*3/uL RBC (4.20-5.50) X10*6/uL Hgb (12.0-16.0) g/dl Hct (37.0-47.0) % MCV (80.0-98.0) fL MCH (27.0-33.0) pg MCHC (31.0-35.0) g/dl RDW (11.0-16.0) % Plt Count (160-400) X10*3/uL MPV (9.4-12.3) fL Immature Gran % (Auto) (0.0-0.4) % Neut % (Auto) (45-73) % Lymph % (Auto) (20-40) % [place] % (Auto) (2-11) % Eos % (Auto) (0-4) % Baso % (Auto) (0-2) % Lymph # (Auto) (1.2-4.9) X10*3/uL [place] # (Auto) (0.1-1.2) X10*3/uL Eos # (Auto) (0.0-0.4) X10*3/uL Baso # (Auto) (0.0-0.2) X10*3/uL Abs Immat Gran (auto) (0.00-0.03) X10*3/uL Absolute Neuts (auto) (2.0-8.3) x10*3/uL Absolute Nucleated RBC (0.0-0.012) X10*3/uL Nucleated RBC % (auto) (0.0-0.2) /100WBC PT (10.0-13.1) SEC INR (0.9-1.1) APTT (26.0-36.4) SEC VBG pH 7.47 H (7.32-7.43) VBG pCO2 32 mmHg VBG pO2 96 mmHg VBG HCO3 23 (22-26) mmol/L VBG O2 Saturation 99.0 % VBG Base Excess 1.0 mmol/L Sodium (135-145) mmol/L Potassium (3.3-5.1) mmol/L Chloride (96-108) mmol/L Carbon Dioxide (22-29) mmol/L Anion Gap (12-20) BUN (9-16) mg/dL Creatinine (0.5-1.4) mg/dL Estim Creat Clear Calc Estimated GFR Random Glucose (60-115) mg/dL Calcium (8.4-10.2) mg/dL Magnesium (1.6-2.6) mg/dL Total Bilirubin (0.0-1.0) mg/dL Direct Bilirubin (0.0-0.5) mg/dL AST (5-31) U/L ALT (0-31) U/L Alkaline Phosphatase (39-117) U/L Ammonia 32 (13-55) umol/L Total Protein (6.5-8.0) g/dL Albumin (3.5-5.0) g/dL Lipase (8-78) U/L Salicylates (15-30) mg/dL Acetaminophen (<30) mcg/mL Ethyl Alcohol < 10 mg/dL 07/29/22 Range/Units 20:02 WBC (4.8-10.8) X10*3/uL RBC (4.20-5.50) X10*6/uL Hgb (12.0-16.0) g/dl Hct (37.0-47.0) % MCV (80.0-98.0) fL MCH (27.0-33.0) pg MCHC (31.0-35.0) g/dl RDW (11.0-16.0) % Plt Count (160-400) X10*3/uL MPV (9.4-12.3) fL Immature Gran % (Auto) (0.0-0.4) % Neut % (Auto) (45-73) % Lymph % (Auto) (20-40) % [place] % (Auto) (2-11) % Eos % (Auto) (0-4) % Baso % (Auto) (0-2) % Lymph # (Auto) (1.2-4.9) X10*3/uL [place] # (Auto) (0.1-1.2) X10*3/uL Eos # (Auto) (0.0-0.4) X10*3/uL Baso # (Auto) (0.0-0.2) X10*3/uL Abs Immat Gran (auto) (0.00-0.03) X10*3/uL Absolute Neuts (auto) (2.0-8.3) x10*3/uL Absolute Nucleated RBC (0.0-0.012) X10*3/uL Nucleated RBC % (auto) (0.0-0.2) /100WBC PT (10.0-13.1) SEC INR (0.9-1.1) APTT (26.0-36.4) SEC VBG pH Cancelled (7.32-7.43) VBG pCO2 Cancelled mmHg VBG pO2 Cancelled mmHg VBG HCO3 Cancelled (22-26) mmol/L VBG O2 Saturation Cancelled % VBG Base Excess Cancelled mmol/L Sodium (135-145) mmol/L Potassium (3.3-5.1) mmol/L Chloride (96-108) mmol/L Carbon Dioxide (22-29) mmol/L Anion Gap (12-20) BUN (9-16) mg/dL Creatinine (0.5-1.4) mg/dL Estim Creat Clear Calc Estimated GFR Random Glucose (60-115) mg/dL Calcium (8.4-10.2) mg/dL Magnesium (1.6-2.6) mg/dL Total Bilirubin (0.0-1.0) mg/dL Direct Bilirubin (0.0-0.5) mg/dL AST (5-31) U/L ALT (0-31) U/L Alkaline Phosphatase (39-117) U/L Ammonia (13-55) umol/L Total Protein (6.5-8.0) g/dL Albumin (3.5-5.0) g/dL Lipase (8-78) U/L Salicylates (15-30) mg/dL Acetaminophen (<30) mcg/mL Ethyl Alcohol mg/dL ECG Data Attestation: I personally reviewed and interpreted this ECG as follows: ECG interpretation date: 07/29/22 ECG interpretation time: 19:23 Prior ECG tracings: available for review Interpretation: #1: 19:11 - sinus tachycardia, HR 115, DE interval 154 ms, Qtc 489, QRS 90 Critical Care Time Critical Care Time Critical Care Time: Yes Total Critical Care Time: 55 Attestation: I have personally provided critical care time exclusive of time spent on separately billable procedures. Time includes review of lab data, radiology results, discussion with consultants, and monitoring for potential decompensation. Intervention performed as documented. Discharge Plan Discharge Clinical Impression: Acetaminophen overdose, Suicide attempt, Full body hives Patient Disposition: Admitted As Inpatient Prescriptions: No Action metformin 500 mg tablet 1 tab PO BID atorvastatin 10 mg tablet 1 tab PO DAILY verapamil 240 mg tablet extended release 240 mg PO BEDTIME montelukast 10 mg tablet 1 tab PO BEDTIME fluticasone propionate [Flovent HFA] 110 mcg/actuation HFA aerosol inhaler 2 puff inhalation BID albuterol sulfate [Ventolin HFA] 90 mcg/actuation HFA aerosol inhaler 2 puff inhalation Q4H PRN (Reason: Shortness Of Breath) trazodone 150 mg tablet 150 mg PO BEDTIME benztropine 1 mg tablet 1 mg PO DAILY docusate sodium [Colace] 100 mg capsule 100 mg PO BID Qty: 60 0RF hydroxyzine HCl 50 mg tablet 2 tab PO BID chlorpromazine 25 mg tablet 1 tab PO TID nystatin 100,000 unit/gram ointment 1 appl topical QID Qty: 30 0RF fluoxetine 20 mg Capsule 40 mg PO DAILY 30 Days Qty: 60 0RF prazosin 1 mg Capsule 4 mg PO BEDTIME 30 Days Qty: 120 0RF Protocol: Hold for SBP< HOLD for SBP < : 90 ondansetron 4 mg tablet,disintegrating 4 mg PO Q6-8H PRN (Reason: nausea and vomiting) Qty: 14 0RF fluphenazine HCl 2.5 mg tablet 1 tab PO BEDTIME fluphenazine HCl 5 mg tablet 1 tab PO BEDTIME
[2022-07-29] MEDS: methylPREDNISolone Sod Succ 125 MG/2 ML VIAL IVPUSH (19:44)
[2022-07-29] MEDS: diphenhydrAMINE HCL 50 MG/ML VIAL IVPUSH (19:45)
[2022-07-29] MEDS: Acetylcysteine 15,000 MG in Dextrose 5 % 200 ML 275 MG IV (19:51)
[2022-07-29] MEDS: Activated charcoaL 50 GM/240 ML ORAL.SUSP PO (19:52)
[2022-07-29 19:57] LABS: MANUAL DIFF FLAG NO
[2022-07-29 19:58] LABS: Basophils Percent Auto 0.2 % (0-2); Eosinophils Absolute Auto 0.3 X10*3/uL (0.0-0.4); Eosinophils Percent Auto 3.8 % (0-4); Hematocrit 32.3 % (37.0-47.0); Hemoglobin 10.6 g/dl (12.0-16.0); Imm Gran Abs Auto 0.02 X10*3/uL (0.00-0.03); Imm Gran Pct Auto 0.3 % (0.0-0.4); Lymphocytes Absolute Auto 1.8 X10*3/uL (1.2-4.9); Lymphocytes Percent Auto 27.9 % (20-40); Mean Corpuscular HGB Conc 32.8 g/dl (31.0-35.0); Mean Corpuscular Hemoglobin 27.6 pg (27.0-33.0); Mean Corpuscular Volume 84.1 fL (80.0-98.0); Mean Platelet Volume 9.8 fL (9.4-12.3); Monocytes Absolute Auto 0.5 X10*3/uL (0.1-1.2); Monocytes Percent Auto 8.1 % (2-11); Neutrophils Absolute Auto 3.9 x10*3/uL (2.0-8.3); Neutrophils Percent Auto 59.7 % (45-73); Platelet Count 266 X10*3/uL (160-400); Red Blood Count 3.84 X10*6/uL (4.20-5.50); Red Cell Distribution Width 13.2 % (11.0-16.0); Venous Blood Gas Refer to POC result; White Blood Count 6.6 X10*3/uL (4.8-10.8)
[2022-07-29 19:59] LABS: VBG HCO3 23 mmol/L (22-26); VBG pCO2 32 mmHg; VBG pH 7.47 (7.32-7.43); VBG pO2 96 mmHg
[2022-07-29 20:05] LABS: Prothrombin Time 11.6 SEC (10.0-13.1)
[2022-07-29 20:14] LABS: Ammonia 32 umol/L (13-55)
[2022-07-29 20:16] LABS: Ethanol < 10 mg/dL
[2022-07-29 20:24] LABS: Acetaminophen LAB 236 mcg/mL (<30); Alanine Aminotransferase 12 U/L (0-31); Albumin Level 4.1 g/dL (3.5-5.0); Alkaline Phosphatase 100 U/L (39-117); Anion Gap 18 (12-20); Aspartate Amino Transferase 13 U/L (5-31); Bilirubin Direct < 0.2 mg/dL (0.0-0.5); Bilirubin Total 0.2 mg/dL (0.0-1.0); Blood Urea Nitrogen 10 mg/dL (9-16); Carbon Dioxide 22 mmol/L (22-29); Chloride 104 mmol/L (96-108); Creatinine Clr Calc Pharmacy 92.1; Estimated Glomerular Filt Rate > 60; Glucose Random 151 mg/dL (60-115); Lipase 22 U/L (8-78); Magnesium 1.5 mg/dL (1.6-2.6); Potassium 3.6 mmol/L (3.3-5.1); Salicylate < 5.0 mg/dL (15-30); Sodium 140 mmol/L (135-145); Total Protein 6.5 g/dL (6.5-8.0)
[2022-07-29 21:09] VITALS: BP 139/76; PULSE 78; RESP 24; O2SAT 98
[2022-07-29] MEDS: 0.9 % Sodium Chloride 1,000 ML 999 ML IVCONT (21:28)
--- NOTE | 2022-07-29 21:29 | PM.IMHP ---
History of Present Illness Date of Service: 07/29/22 Chief Complaint: Intentional overdose This is a 46-year-old female with a pertinent history of major depressive disorder, borderline personality disorder, history of suicidal at times including self cutting and Tylenol overdose who was brought to the ER after intentional overdose of Tylenol. Patient ingested approximately 50 tablets of extra-strength Tylenol 500 mg at 18:00 in an attempt to kill herself. EMS was called after patient told somebody at the residential about it. At the time of my evaluation, patient is hemodynamically stable and denies any complaints. Denies any other ingestion. She denies fever, chills, chest discomfort, shortness of breath, homicidal ideations, abdominal pain, changes in urinary or bowel habits. In the emergency department patient was flashed upon arrival. She received charcoal and N-acetylcysteine loading dose as well as GTT. Poison control was contacted by ER provider. ICU team was consulted who recommended placement on intermediate care unit. Review of Systems Review of Systems: All 13 review of systems are negative except as noted in [facility] Medical History Acetaminophen overdose Borderline personality disorder Bronchitis Depression Diabetes type 2, controlled GERD (gastroesophageal reflux disease) History of attempted suicide History of non-suicidal self-harm Hyperlipidemia Hypomagnesemia Major depression MDD (major depressive disorder), recurrent episode, severe Mood disorder Overdose PTSD (post-traumatic stress disorder) Suicide attempt Suicide attempt by acetaminophen overdose Social History Household Members: None Household Members Other:: Patient lives in residential. 4 in total live in residential. Housing: Other Housing Other:: residential Do you presently have visiting nurse or other home services: No Unable to assess alcohol history related to: Unknown Alcohol intake: former Patient Tobacco Use Status: Current everyday Tobacco user Tobacco use type: Cigarette Cigarette Packs Per Day: 1 Cigarettes Per Day: 20 Years Smoked: 20 Smoked in Last 30 Days: Yes e-Cigarette/Vaping Use: Never Used Use of substances other than those prescribed or required for medical reasons: Refusing to respond Substance Use Type: Marijuana Advance Directives: No Advance Directives Information Provided: No service: No Current occupational status: disabled Sexual orientation: Don't Know Meds Allergies Allergy/AdvReac Type Severity Reaction Status Date / Time Fish Containing Products Allergy Severe ANAPHYLAXIS Verified 05/06/22 20:47 codeine [Codeine] Allergy Unknown RASH Verified 05/06/22 20:47 Penicillins Allergy Unknown RASH Verified 05/06/22 20:47 prednisone [Prednisone] Allergy Unknown RASH Verified 05/06/22 20:47 Sulfa (Sulfonamide Allergy Unknown RASH Verified 05/06/22 20:47 Antibiotics) [Sulfa (Sulfonamides)] azithromycin [AZITHROMYCIN] AdvReac Severe RASH Verified 05/06/22 20:47 ziprasidone [From Geodon] AdvReac Intermediate dysuria, Verified 05/06/22 20:47 rash Active Medications: Current Medications Enoxaparin Sodium (Enoxaparin Sodium 40 Mg/0.4 Ml Syringe) 40 mg SUBCUT Q24H [facility] Acetylcysteine 5,000 mg/ (Dextrose) 525 mls @ 131.25 mls/hr IV ONCE ONE Stop: 07/30/22 00:59 Acetylcysteine 10,000 mg/ (Dextrose) 1,050 mls @ 65.625 mls/hr IV ONCE ONE Stop: 07/30/22 16:59 Sodium Chloride (Ns) 1,000 mls @ 999 mls/hr IVCONT .Q1H1M YULY Stop: 07/29/22 21:45 Last Admin: 07/29/22 21:28 Dose: 999 mls/hr Melatonin (Melatonin 3 Mg Tablet) 6 mg PO BEDTIME PRN PRN Reason: Insomnia Ondansetron HCl (Ondansetron Hcl 4 Mg/2 Ml Vial) 4 mg IVPUSH Q8H PRN PRN Reason: Nausea and Vomiting Sodium Chloride (0.9 % Sodium Chloride Flush 3 Ml Syringe) 3 ml IVFLUSH QSHIFT [facility] Home Medications Medication Instructions Recorded Confirmed Last Taken Type atorvastatin 10 mg tablet 1 tab PO DAILY 05/29/21 07/25/22 03/19/22 08:00 History fluticasone propionate 110 2 puff inhalation BID 05/29/21 07/22/22 03/19/22 08:00 History mcg/actuation HFA aerosol inhaler (Flovent HFA) metformin 500 mg tablet 1 tab PO BID 05/29/21 07/22/22 03/19/22 08:00 History montelukast 10 mg tablet 1 tab PO BEDTIME 0807/25/22 03/18/22 20:00 History verapamil 240 mg tablet,extended 240 mg PO BEDTIME 05/29/21 07/25/22 03/18/22 20:00 History release albuterol sulfate 90 mcg/actuation 2 puff inhalation Q4H PRN 06/15/21 07/25/22 02/06/22 20:00 History aerosol inhaler (Ventolin HFA) Shortness Of Breath trazodone 150 mg tablet 150 mg PO BEDTIME 11/05/21 07/25/22 02/06/22 20:00 History benztropine 1 mg tablet 1 mg PO DAILY 12/26/21 07/25/22 03/19/22 08:00 History fluphenazine HCl 2.5 mg tablet 1 tab PO BEDTIME 03/19/22 07/25/22 Unknown History fluphenazine HCl 5 mg tablet 1 tab PO BEDTIME 03/19/22 07/22/22 Unknown History chlorpromazine 25 mg tablet 1 tab PO TID 06/17/22 07/25/22 Unknown History hydroxyzine HCl 50 mg tablet 2 tab PO BID 06/17/22 07/25/22 Unknown History Physical Exam Vital Signs and Narrative: Vital Signs: Last Vital Signs Temp 98.2 F 07/29/22 18:45 Pulse 78 07/29/22 21:09 Resp 24 H 07/29/22 21:09 BP 139/76 07/29/22 21:09 Pulse Ox 98 07/29/22 21:09 O2 Del Method 07/29/22 21:09 BMI result Body Mass Index 38.9 Middle-aged female lying in bed in no distress Neck supple, no JVD Regular rate and rhythm, S1-S2 heard Regular breath sounds bilaterally, no wheezing or crackles appreciated Abdomen soft nontender, no guarding, no rigidity Patient is awake, alert and oriented to self, place, time and person ; no focal motor deficit Skin: Healing scars over left arm Psych: Drowsy No pedal edema Results Labs CBC and Chem 7: 07/29/22 19:47 07/29/22 19:47 Labs: Laboratory Results - last 24 hr 07/29/22 07/29/22 07/29/22 19:47 19:47 19:47 MCV 84.1 MCH 27.6 MCHC 32.8 RDW 13.2 Plt Count 266 MPV 9.8 Immature Gran % (Auto) 0.3 Neut % (Auto) 59.7 Lymph % (Auto) 27.9 [place] % (Auto) 8.1 Eos % (Auto) 3.8 Baso % (Auto) 0.2 Lymph # (Auto) 1.8 [place] # (Auto) 0.5 Eos # (Auto) 0.3 Baso # (Auto) 0.0 Abs Immat Gran (auto) 0.02 Absolute Neuts (auto) 3.9 Absolute Nucleated RBC 0.000 Nucleated RBC % (auto) 0.0 PT 11.6 INR 1.0 APTT 33.0 VBG pH VBG pCO2 VBG pO2 VBG HCO3 VBG O2 Saturation VBG Base Excess Anion Gap 18 Estim Creat Clear Calc 92.1 Estimated GFR > 60 Random Glucose 151 H Calcium 9.0 Magnesium 1.5 L Total Bilirubin 0.2 Direct Bilirubin < 0.2 AST 13 ALT 12 Alkaline Phosphatase 100 Ammonia Total Protein 6.5 Albumin 4.1 Lipase 22 Salicylates < 5.0 L Acetaminophen 236 H* Ethyl Alcohol 07/29/22 07/29/22 07/29/22 19:47 19:47 19:54 MCV MCH MCHC RDW Plt Count MPV Immature Gran % (Auto) Neut % (Auto) Lymph % (Auto) [place] % (Auto) Eos % (Auto) Baso % (Auto) Lymph # (Auto) [place] # (Auto) Eos # (Auto) Baso # (Auto) Abs Immat Gran (auto) Absolute Neuts (auto) Absolute Nucleated RBC Nucleated RBC % (auto) PT INR APTT VBG pH 7.47 H VBG pCO2 32 VBG pO2 96 VBG HCO3 23 VBG O2 Saturation 99.0 VBG Base Excess 1.0 Anion Gap Estim Creat Clear Calc Estimated GFR Random Glucose Calcium Magnesium Total Bilirubin Direct Bilirubin AST ALT Alkaline Phosphatase Ammonia 32 Total Protein Albumin Lipase Salicylates Acetaminophen Ethyl Alcohol < 10 07/29/22 20:02 MCV MCH MCHC RDW Plt Count MPV Immature Gran % (Auto) Neut % (Auto) Lymph % (Auto) [place] % (Auto) Eos % (Auto) Baso % (Auto) Lymph # (Auto) [place] # (Auto) Eos # (Auto) Baso # (Auto) Abs Immat Gran (auto) Absolute Neuts (auto) Absolute Nucleated RBC Nucleated RBC % (auto) PT INR APTT VBG pH Cancelled VBG pCO2 Cancelled VBG pO2 Cancelled VBG HCO3 Cancelled VBG O2 Saturation Cancelled VBG Base Excess Cancelled Anion Gap Estim Creat Clear Calc Estimated GFR Random Glucose Calcium Magnesium Total Bilirubin Direct Bilirubin AST ALT Alkaline Phosphatase Ammonia Total Protein Albumin Lipase Salicylates Acetaminophen Ethyl Alcohol Assessment and Plan (1) Acetaminophen overdose: Status: Acute (2) Suicide attempt: Status: Acute (3) Major depression: Status: Acute Plan This is a 46-year-old female with a pertinent history of major depressive disorder, borderline personality disorder, history of suicidal at times including self cutting and Tylenol overdose who was brought to the ER after intentional overdose of Tylenol. #. Suicide attempt by intentional acetaminophen overdose -will admit the patient to intermediate care unit on nursing teacher for close monitoring. Received charcoal and N-acetylcysteine loading dose in the ER. Currently on N-acetyl cystine GGT as per poison control. Will continue to monitor acetaminophen level every 4 hours. Currently with sitter 1:1. LFTs and coags normal. #. Major depressive disorder #. Borderline personality disorder -continue mood stabilizing medications. Psych consulted #. Glq-abzbyef-euobopntz diabetes mellitus -on metformin #. Mixed hyperlipidemia -on statin #. Chronic normocytic anemia #. Hypomagnesemia -will replete DVT prophylaxis: Lovenox 40 mg daily Diet: Regular diet Full code Patient will require two night minimum hospital stay for close monitoring for acetaminophen toxicity. Quality Stroke Does the patient have a stroke diagnosis?: No VTE Prior VTE?: No VTE Risk Level:: Medical - moderate - high VTE Device Contraindication: Treatment Not Indicated VTE Drug Contraindication: N/A - Med Ordered
[2022-07-29 21:30] VITALS: BP 138/70; PULSE 77; RESP 21; O2SAT 94
[2022-07-29] MEDS: Acetylcysteine 5,000 MG in Dextrose 5 % 500 ML 131.25 MG IV (21:48)
[2022-07-29] MEDS: Enoxaparin Sodium 40 MG/0.4 ML SYRINGE SUBCUT (22:18)
[2022-07-29 22:44] LABS: COVID-19 Test Negative (Negative)
[2022-07-29 22:49] LABS: MANUAL DIFF FLAG NO
[2022-07-29 22:52] LABS: Basophils Percent Auto 0.4 % (0-2); Eosinophils Absolute Auto 0.2 X10*3/uL (0.0-0.4); Eosinophils Percent Auto 2.5 % (0-4); Hematocrit 29.3 % (37.0-47.0); Hemoglobin 9.6 g/dl (12.0-16.0); Imm Gran Abs Auto 0.03 X10*3/uL (0.00-0.03); Imm Gran Pct Auto 0.4 % (0.0-0.4); Lymphocytes Absolute Auto 1.7 X10*3/uL (1.2-4.9); Mean Corpuscular HGB Conc 32.8 g/dl (31.0-35.0); Mean Corpuscular Hemoglobin 28.7 pg (27.0-33.0); Mean Corpuscular Volume 87.5 fL (80.0-98.0); Mean Platelet Volume 9.3 fL (9.4-12.3); Monocytes Absolute Auto 0.6 X10*3/uL (0.1-1.2); Monocytes Percent Auto 8.5 % (2-11); Neutrophils Absolute Auto 4.1 x10*3/uL (2.0-8.3); Neutrophils Percent Auto 62.2 % (45-73); Platelet Count 228 X10*3/uL (160-400); Red Blood Count 3.35 X10*6/uL (4.20-5.50); Red Cell Distribution Width 13.2 % (11.0-16.0); White Blood Count 6.7 X10*3/uL (4.8-10.8)
[2022-07-29 22:52] LABS: VBG Base Excess -3.5 mmol/L; VBG HCO3 18 mmol/L (22-26); VBG pCO2 24 mmHg; VBG pH 7.48 (7.32-7.43); VBG pO2 145 mmHg
[2022-07-29 22:56] LABS: Venous Blood Gas Refer to POC result
[2022-07-29 22:57] LABS: Ammonia 25 umol/L (13-55)
[2022-07-29 22:58] LABS: INTERNATIONAL NORM RATIO 1.1 (0.9-1.1); Prothrombin Time 12.7 SEC (10.0-13.1)
[2022-07-29 23:01] LABS: Partial Thromboplastin Time 35.8 SEC (26.0-36.4)
[2022-07-29 23:14] LABS: Alanine Aminotransferase 10 U/L (0-31); Albumin Level 3.6 g/dL (3.5-5.0); Alkaline Phosphatase 76 U/L (39-117); Anion Gap 14 (12-20); Aspartate Amino Transferase 10 U/L (5-31); Bilirubin Direct < 0.2 mg/dL (0.0-0.5); Bilirubin Total 0.2 mg/dL (0.0-1.0); Blood Urea Nitrogen 8 mg/dL (9-16); Carbon Dioxide 22 mmol/L (22-29); Chloride 109 mmol/L (96-108); Creatinine Clr Calc Pharmacy 90.1; Estimated Glomerular Filt Rate > 60; Glucose Random 123 mg/dL (60-115); Potassium 3.7 mmol/L (3.3-5.1); Sodium 141 mmol/L (135-145); Total Protein 5.6 g/dL (6.5-8.0)
[2022-07-29 23:27] VITALS: BMI 39.3
[2022-07-29 23:32] LABS: Acetaminophen LAB 130 mcg/mL (<30)
[2022-07-29] MEDS: Magnesium Sulfate/H2O 2 GM/50 ML PIGGYBACK IV (23:46)
[2022-07-29 23:59] VITALS: BP 156/92; PULSE 78; RESP 20; TEMP 36.2; O2SAT 97
[2022-07-30 01:40] LABS: Acetaminophen LAB 96 mcg/mL (<30)
[2022-07-30] MEDS: Acetylcysteine 10,000 MG in Dextrose 5 % 1,000 ML 65.63 MG IV (02:44)
[2022-07-30] MEDS: 0.9 % Sodium Chloride Flush 3 ML SYRINGE IVFLUSH ×4 (02:44→22:31)
[2022-07-30 03:44] VITALS: BP 142/88; PULSE 67; RESP 18; TEMP 36.3; O2SAT 96
--- NOTE | 2022-07-30 07:35 | HO.PM.IMPN ---
Subjective Subjective Date of Service: 07/30/22 Interval History: f/u on Suicide atempt, APAP OD Interval history: APAP level going down, denying SI/AH/VH Review of Systems no fever no n/v Constitutional General: AO X 3, no acute distress Resp: CTA bilateral CVS: S1,S2,RRR GI: +BS, NT, no distention Skin: No rash Neuro: motor grossly intact Psych: appropriate affect Physical Exam Vital Signs: Vital Signs: Last Vital Signs Temp 97.3 F 07/30/22 03:44 Pulse 67 07/30/22 03:44 Resp 18 07/30/22 03:44 BP 142/88 H 07/30/22 03:44 Pulse Ox 96 07/30/22 03:44 O2 Del Method 07/30/22 03:44 BMI result Body Mass Index 39.3 Objective Data Active Medications Enoxaparin Sodium (Enoxaparin Sodium 40 Mg/0.4 Ml Syringe) 40 mg SUBCUT Q24H [facility] Last Admin: 07/29/22 22:18 Dose: 40 mg Documented By: TONEY Acetylcysteine 10,000 mg/ (Dextrose) 1,050 mls @ 65.625 mls/hr IV ONCE ONE Stop: 07/30/22 16:59 Last Admin: 07/30/22 02:44 Dose: 65.63 mls/hr Documented By: KATHY Melatonin (Melatonin 3 Mg Tablet) 6 mg PO BEDTIME PRN PRN Reason: Insomnia Ondansetron HCl (Ondansetron Hcl 4 Mg/2 Ml Vial) 4 mg IVPUSH Q8H PRN PRN Reason: Nausea and Vomiting Pharmacy Consult (Consult Rx Perform Med Rec) 1 each MISCELLANE ONCE STA Stop: 07/29/22 21:38 Sodium Chloride (0.9 % Sodium Chloride Flush 3 Ml Syringe) 3 ml IVFLUSH QSHIFT [facility] Last Admin: 07/30/22 02:44 Dose: 3 ml Documented By: KATHY Labs CBC & Chem 7: 07/29/22 22:42 07/29/22 22:42 Labs: Laboratory Results - last 24 hr 07/29/22 07/29/22 07/29/22 19:47 19:47 19:47 MCV 84.1 MCH 27.6 MCHC 32.8 RDW 13.2 Plt Count 266 MPV 9.8 Immature Gran % (Auto) 0.3 Neut % (Auto) 59.7 Lymph % (Auto) 27.9 [place] % (Auto) 8.1 Eos % (Auto) 3.8 Baso % (Auto) 0.2 Lymph # (Auto) 1.8 [place] # (Auto) 0.5 Eos # (Auto) 0.3 Baso # (Auto) 0.0 Abs Immat Gran (auto) 0.02 Absolute Neuts (auto) 3.9 Absolute Nucleated RBC 0.000 Nucleated RBC % (auto) 0.0 PT 11.6 INR 1.0 APTT 33.0 VBG pH VBG pCO2 VBG pO2 VBG HCO3 VBG O2 Saturation VBG Base Excess Anion Gap 18 Estim Creat Clear Calc 92.1 Estimated GFR > 60 Random Glucose 151 H Calcium 9.0 Magnesium 1.5 L Total Bilirubin 0.2 Direct Bilirubin < 0.2 AST 13 ALT 12 Alkaline Phosphatase 100 Ammonia Total Protein 6.5 Albumin 4.1 Lipase 22 Salicylates < 5.0 L Acetaminophen 236 H* Ethyl Alcohol COVID-19 ([facility]) [employer] 07/29/22 07/29/22 07/29/22 19:47 19:47 19:47 MCV MCH MCHC RDW Plt Count MPV Immature Gran % (Auto) Neut % (Auto) Lymph % (Auto) [place] % (Auto) Eos % (Auto) Baso % (Auto) Lymph # (Auto) [place] # (Auto) Eos # (Auto) Baso # (Auto) Abs Immat Gran (auto) Absolute Neuts (auto) Absolute Nucleated RBC Nucleated RBC % (auto) PT INR APTT VBG pH VBG pCO2 VBG pO2 VBG HCO3 VBG O2 Saturation VBG Base Excess Anion Gap Estim Creat Clear Calc Estimated GFR Random Glucose Calcium Magnesium Total Bilirubin Direct Bilirubin AST ALT Alkaline Phosphatase Ammonia 32 Total Protein Albumin Lipase Salicylates Acetaminophen Ethyl Alcohol < 10 COVID-19 (NICK) Negative [employer] See Note 07/29/22 07/29/22 07/29/22 19:54 20:02 22:42 MCV 87.5 MCH 28.7 MCHC 32.8 RDW 13.2 Plt Count 228 MPV 9.3 L Immature Gran % (Auto) 0.4 Neut % (Auto) 62.2 Lymph % (Auto) 26.0 [place] % (Auto) 8.5 Eos % (Auto) 2.5 Baso % (Auto) 0.4 Lymph # (Auto) 1.7 [place] # (Auto) 0.6 Eos # (Auto) 0.2 Baso # (Auto) 0.0 Abs Immat Gran (auto) 0.03 Absolute Neuts (auto) 4.1 Absolute Nucleated RBC 0.000 Nucleated RBC % (auto) 0.0 PT INR APTT VBG pH 7.47 H Cancelled VBG pCO2 32 Cancelled VBG pO2 96 Cancelled VBG HCO3 23 Cancelled VBG O2 Saturation 99.0 Cancelled VBG Base Excess 1.0 Cancelled Anion Gap Estim Creat Clear Calc Estimated GFR Random Glucose Calcium Magnesium Total Bilirubin Direct Bilirubin AST ALT Alkaline Phosphatase Ammonia Total Protein Albumin Lipase Salicylates Acetaminophen Ethyl Alcohol COVID-19 (NICK) [employer] 07/29/22 07/29/22 07/29/22 22:42 22:42 22:42 MCV MCH MCHC RDW Plt Count MPV Immature Gran % (Auto) Neut % (Auto) Lymph % (Auto) [place] % (Auto) Eos % (Auto) Baso % (Auto) Lymph # (Auto) [place] # (Auto) Eos # (Auto) Baso # (Auto) Abs Immat Gran (auto) Absolute Neuts (auto) Absolute Nucleated RBC Nucleated RBC % (auto) PT 12.7 INR 1.1 APTT 35.8 VBG pH VBG pCO2 VBG pO2 VBG HCO3 VBG O2 Saturation VBG Base Excess Anion Gap 14 Estim Creat Clear Calc 90.1 Estimated GFR > 60 Random Glucose 123 H Calcium 8.0 L D Magnesium Total Bilirubin 0.2 Direct Bilirubin < 0.2 AST 10 ALT 10 Alkaline Phosphatase 76 D Ammonia 25 Total Protein 5.6 L Albumin 3.6 Lipase Salicylates Acetaminophen Cancelled Ethyl Alcohol COVID-19 (NICK) [employer] 07/29/22 07/29/22 07/30/22 22:42 22:46 00:23 MCV MCH MCHC RDW Plt Count MPV Immature Gran % (Auto) Neut % (Auto) Lymph % (Auto) [place] % (Auto) Eos % (Auto) Baso % (Auto) Lymph # (Auto) [place] # (Auto) Eos # (Auto) Baso # (Auto) Abs Immat Gran (auto) Absolute Neuts (auto) Absolute Nucleated RBC Nucleated RBC % (auto) PT INR APTT VBG pH 7.48 H VBG pCO2 24 VBG pO2 145 VBG HCO3 18 L VBG O2 Saturation 99.0 VBG Base Excess -3.5 Anion Gap Estim Creat Clear Calc Estimated GFR Random Glucose Calcium Magnesium Total Bilirubin Direct Bilirubin AST ALT Alkaline Phosphatase Ammonia Total Protein Albumin Lipase Salicylates Acetaminophen 130 H* 96 H* Ethyl Alcohol COVID-19 (NICK) COVID-19 Clin Com Assessment and Plan (1) Suicide attempt: Status: Acute (2) Acetaminophen overdose: Status: Acute Plan This is a 46-year-old female with a pertinent history of major depressive disorder, borderline personality disorder, history of suicidal at times including self cutting and Tylenol overdose who was brought to the ER after intentional overdose of Tylenol. #.? 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 Received charcoal and N-acetylcysteine loading dose in the ER.? Currently on N-acetyl cystine GGT as per poison control.? Will continue to monitor acetaminophen level every 4 hours.? Currently with sitter 1:1.? LFTs and coags normal. Repeat labs a 4 pm #.? Major depressive disorder #.? Borderline personality disorder -continue mood stabilizing medications.? Psych consulted #.? Huy-fowever-lsuwwlswi diabetes mellitus -on metformin, SSI, diabetic diet #.? Mixed hyperlipidemia -on statin #.? Chronic normocytic anemia--stable #.? Hypomagnesemia -will replete, recheck DVT prophylaxis:? Lovenox 40 mg daily Diet: Regular diet Full code Need for inpatient: Suicidal watch, treatment of tylenol OD with NAC and monitoring of level Quality Stroke Does the patient have a stroke diagnosis?: No VTE Prior VTE?: No VTE Risk Level:: Medical - moderate - high VTE Device Contraindication: Treatment Not Indicated VTE Drug Contraindication: N/A - Med Ordered
[2022-07-30 07:38] VITALS: BP 161/85; PULSE 67; RESP 17; TEMP 36.1; O2SAT 95
--- NOTE | 2022-07-30 09:25 | MHC.CM.PN ---
PT REPORTS SHE RESIDES IN A SKILLED NURSING WITH [facility] SHE DENIES HAVING ANY DME OR NEEDING ANY ASSISTANCE WITH SELF CARE PT REPORTS HER PCP IS JASON ARREOLA IN [facility] SHE HAS A HCP ON FILE PT STATES SHE IS COVID VACCINATED X 3 IMM DELIVERED CURRENTLY DCP IS TBD PENDING CRISIS EVAL WHEN MEDICALLY CLEAR HOWEVER PT REPORTS SHE IS HOPING TO GO HOME SKILLED NURSING STAFF TO TRANSPORT
--- NOTE | 2022-07-30 10:17 | PHA.MEDREC ---
Pharmacy Consult ? Medication Reconciliation Pharmacy has completed the medication reconciliation. Patient didn't know fluoxetine current dosing and unsure if taking mirtazipine. Called HCP on file, but no answer. She was recently discharged (07/27). Fluoxetine and mirtazipine were confirmed and based off previous discharge/pharmacy claim history.
[2022-07-30 10:40] LABS: Hematocrit 33.7 % (37.0-47.0); Hemoglobin 10.8 g/dl (12.0-16.0); Mean Corpuscular Hemoglobin 27.3 pg (27.0-33.0); Mean Corpuscular Volume 85.3 fL (80.0-98.0); Platelet Count 263 X10*3/uL (160-400); Red Blood Count 3.95 X10*6/uL (4.20-5.50); Red Cell Distribution Width 12.9 % (11.0-16.0); White Blood Count 5.3 X10*3/uL (4.8-10.8)
[2022-07-30 10:59] LABS: Acetaminophen LAB 20 mcg/mL (<30); Acetaminophen LAB 21 mcg/mL (<30); Alanine Aminotransferase 12 U/L (0-31); Albumin Level 3.7 g/dL (3.5-5.0); Alkaline Phosphatase 82 U/L (39-117); Anion Gap 14 (12-20); Aspartate Amino Transferase 12 U/L (5-31); Bilirubin Total 0.2 mg/dL (0.0-1.0); Blood Urea Nitrogen 5 mg/dL (9-16); Calcium 8.4 mg/dL (8.4-10.2); Carbon Dioxide 21 mmol/L (22-29); Chloride 109 mmol/L (96-108); Estimated Glomerular Filt Rate > 60; Glucose Random 105 mg/dL (60-115); Magnesium 1.9 mg/dL (1.6-2.6); Potassium 4.2 mmol/L (3.3-5.1); Sodium 140 mmol/L (135-145); Total Protein 6.1 g/dL (6.5-8.0)
[2022-07-30 12:00] VITALS: BP 154/94; RESP 18; TEMP 36.1; O2SAT 97
[2022-07-30 15:39] VITALS: BP 149/90; PULSE 76; RESP 20; TEMP 36.4; O2SAT 98
--- NOTE | 2022-07-30 16:36 | HE.PHANOTE ---
Adry called @ 1600 to report patient's acetylceystine bag was unhooked when patient was transfer upstairs. Adry was RN taking care of patient on S3 and is unsure when the bag was unhooked. Bag cannot be found Spoke with Ling patient arrive on IMC around 1:40. Mlapah wants the rest of the bag to be infused. Original bag was hung at 02:40, and I am estimate that the bag was stopped around 1300, therefore patient only received 10 hours of the bag which is about 656.25 mL. Patient still need 3761mg/395 mL. A new bag will be made with 3760 mg in 400 mL D5W to be run at 65 mL/hr to replace what was missing. Mady Anthony, PharmD
[2022-07-30 18:26] LABS: Acetaminophen LAB 8 mcg/mL (<30); Alanine Aminotransferase 13 U/L (0-31); Albumin Level 3.9 g/dL (3.5-5.0); Alkaline Phosphatase 93 U/L (39-117); Aspartate Amino Transferase 14 U/L (5-31); Bilirubin Direct < 0.2 mg/dL (0.0-0.5); Bilirubin Total 0.2 mg/dL (0.0-1.0); Total Protein 6.3 g/dL (6.5-8.0)
[2022-07-30 19:20] VITALS: BP 147/84; PULSE 84; RESP 17; TEMP 36.4; O2SAT 98
--- NOTE | 2022-07-30 20:04 | PC.NURSE ---
this nurse got report on pt around 12:30pm, pt came up to floor around 13:00 with 1:1 sitter. per report pt was suppose to have D5 acetylcysteine running however when arriving on the unit pt was not hooked up to anything. when this nurse reached out to the previous nure caring for pt, the nurse stated I cleared her to be transferred up here and went to lunch. i don't know who unhooked her to come up here. when I went to lunch the medication was running through a 22 gauge IV access in the right hand . after speaking to pharmacy they were able to calculate how much the pt has recieved and sent a new bag up -this nurse tried to put bag up at a timely manner however the unit was short on IV pumps and had to go searching for one.
--- NOTE | 2022-07-30 20:17 | PC.NURSE ---
pt expressed that the voices are telling me to do things, they told me to pull out this IV so I did . this nurse reached out to provider about pt's home med - thorazine around 2:59 about it. prior to reaching out previous nurse of pt also reached out to MD with no response back.
[2022-07-30] MEDS: Albuterol/Iprat 2.5/0.5MG 3 ML AMPUL.NEB INHALE (20:56)
[2022-07-30 20:59] VITALS: PULSE 72; RESP 20; O2SAT 100
[2022-07-30] MEDS: Enoxaparin Sodium 40 MG/0.4 ML SYRINGE SUBCUT (22:31)
[2022-07-31] VITALS: BP 175/95; PULSE 73; RESP 16; TEMP 36.8; O2SAT 98
[2022-07-31 07:34] VITALS: BP 165/76; PULSE 65; RESP 20; TEMP 36.4; O2SAT 96
[2022-07-31] MEDS: Albuterol/Iprat 2.5/0.5MG 3 ML AMPUL.NEB INHALE ×2 (09:53→11:50)
[2022-07-31 09:54] VITALS: PULSE 86; RESP 18; O2SAT 100
[2022-07-31 11:36] VITALS: BP 132/89; PULSE 96; RESP 20; TEMP 36.8; O2SAT 99
[2022-07-31 11:51] VITALS: PULSE 96; RESP 18; O2SAT 99
--- NOTE | 2022-07-31 12:23 | P.PNIM_ITS ---
Subjective Subjective Date of Service: 07/31/22 Interval History: f/u on Suicide atempt, APAP OD Interval history: Normal tyelenol level, lfts ok, c/o AH but no SI Review of Systems no fever no n/v Physical Exam Vital Signs: Vital Signs: Last Vital Signs Temp 98.2 F 07/31/22 11:36 Pulse 96 07/31/22 11:51 Resp 18 07/31/22 11:51 BP 132/89 07/31/22 11:36 Pulse Ox 99 07/31/22 11:36 O2 Del Method 07/31/22 11:36 BMI result Body Mass Index 39.3 Const: Other: General: AO X 3, no acute distress Resp: CTA bilateral CVS: S1,S2,RRR GI: +BS, NT, no distention Skin: No rash Neuro: motor grossly intact Psych:flat affect, AH, denies SI at this time Objective Data Active Medications Albuterol/Ipratropium (Albuterol/Iprat 2.5/0.5mg 3 Ml Ampul.Neb) 3 ml INHALE RQ4H WHILE AWAKE [facility] Last Admin: 07/31/22 11:50 Dose: 3 ml Documented By: MAXIMILIAN Albuterol/Ipratropium (Albuterol/Iprat 2.5/0.5mg 3 Ml Ampul.Neb) 3 ml INHALE Q2H PRN PRN Reason: Wheezing Last Admin: 07/31/22 09:53 Dose: 3 ml Documented By: MAXIMILIAN Enoxaparin Sodium (Enoxaparin Sodium 40 Mg/0.4 Ml Syringe) 40 mg SUBCUT Q24H [facility] Last Admin: 07/30/22 22:31 Dose: 40 mg Documented By: TY Melatonin (Melatonin 3 Mg Tablet) 6 mg PO BEDTIME PRN PRN Reason: Insomnia Ondansetron HCl (Ondansetron Hcl 4 Mg/2 Ml Vial) 4 mg IVPUSH Q8H PRN PRN Reason: Nausea and Vomiting Sodium Chloride (0.9 % Sodium Chloride Flush 3 Ml Syringe) 3 ml IVFLUSH QSHIFT [facility] Last Admin: 07/31/22 08:25 Dose: Not Given Documented By: KRISTINE Non-Admin Reason: No Access Labs CBC & Chem 7: 07/30/22 10:23 07/30/22 10:23 Labs: Laboratory Results - last 24 hr 07/30/22 16:40 Total Bilirubin 0.2 Direct Bilirubin < 0.2 AST 14 ALT 13 Alkaline Phosphatase 93 Total Protein 6.3 L Albumin 3.9 Acetaminophen 8 Assessment and Plan (1) Suicide attempt: Status: Acute (2) Acetaminophen overdose: Status: Acute Plan This is a 46-year-old female with a pertinent history of major depressive disorder, borderline personality disorder, history of suicidal at times including self cutting and Tylenol overdose who was brought to the ER after intentional overdose of Tylenol. #.? Suicide attempt by intentional acetaminophen overdose--has completed treatement with NAC, last LFTS and Tyelenol within normal limit -Presently no SI but AH.. referal to [facility] for consideration inpatient Psych treatment. Continue 1:1 #.? Major depressive disorder #.? Borderline personality disorder - Meds have been restarted #.? Hox-vlffhqt-eusnarbwu diabetes mellitus -on metformin, SSI, diabetic diet #.? Mixed hyperlipidemia -on statin #.? Chronic normocytic anemia--stable #.? Hypomagnesemia -will replete, recheck DVT prophylaxis:? Lovenox 40 mg daily Diet: Regular diet Full code Need for inpatient: Suicidal watch, treatment of tylenol OD with NAC and monitoring of level Quality Stroke Does the patient have a stroke diagnosis?: No VTE Prior VTE?: No VTE Risk Level:: Medical - moderate - high VTE Device Contraindication: Treatment Not Indicated VTE Drug Contraindication: N/A - Med Ordered
[2022-07-31 13:12] LABS: Magnesium 1.9 mg/dL (1.6-2.6)
--- NOTE | 2022-07-31 13:25 | PM.DS ---
DS: Providers Provider Date of Service: 08/07/22 Date of admission: 07/29/22 21:11 Primary care physician: Maribel Marquez NP Consults: 07/29/22 22:24 Consult to Psychiatry Routine Consulting Provider: Psych Covering Reason for consultation: suicidal attempt Has provider been notified: No 07/31/22 11:26 Consult to Care Team Routine Comment: Reason for consultation: OD with tylenol, medically ready for discharge DS: Diagnosis Discharge Diagnosis (1) Suicide attempt: Status: Resolved (2) Acetaminophen overdose: Status: Resolved DS: Summary Hospital Course Hospital Course: Patient was admitted with Tylenol overdose and was treated wt NAC, her serial tylenol and LFTS were normal. She was assessed by crisis and deemed safe to go home at time of discharge and had plan to call crisis if she felt unsafe. Final diagnosis: Tylenol overdose suicide attemp Time Spent with Patient Time attestation: Total time spent providing and/or coordinating discharge services: Discharge coordination time: Greater than 30 minutes Quality: Safe Use of Opioids Does Pt have an Active Cancer Diagnosis on the Problem List?: No Quality: Stroke Does the patient have a stroke diagnosis?: No Physical Exam Vital Signs: Vital Signs: Last Vital Signs Temp 98.2 F 07/31/22 11:36 Pulse 96 07/31/22 11:51 Resp 18 07/31/22 11:51 BP 132/89 07/31/22 11:36 Pulse Ox 99 07/31/22 11:36 O2 Del Method 07/31/22 11:36 BMI result Body Mass Index 39.3 DS: Data Data Completed and Pending Completed studies during hospitalization [Text1]: Procedures Insertion of Infusion Device into Left Internal Jugular Vein, Percutaneous Approach (02/09/22) Discharge Plan Discharge Anticipated Discharge Date/Time: 07/31/22 14:26 Patient Disposition: Home, Self-Care Discharge Diagnosis: Tylenol overdose Referrals: Physician,Unknown J [Physician] - 1 Week Discharge Medications: Continued metformin 500 mg tablet 1 tab PO BID atorvastatin 10 mg tablet 1 tab PO DAILY verapamil 240 mg tablet extended release 240 mg PO BEDTIME montelukast 10 mg tablet 1 tab PO BEDTIME fluticasone propionate [Flovent HFA] 110 mcg/actuation HFA aerosol inhaler 2 puff inhalation BID albuterol sulfate [Ventolin HFA] 90 mcg/actuation HFA aerosol inhaler 2 puff inhalation Q4H PRN (Reason: Shortness Of Breath) trazodone 150 mg tablet 150 mg PO BEDTIME benztropine 1 mg tablet 1 mg PO BID hydroxyzine HCl 50 mg tablet 1 tab PO DAILY chlorpromazine 25 mg tablet 1 tab PO TID nicotine (polacrilex) 4 mg gum 1 ea PO Q2H PRN (Reason: Smoking Cessation) lisinopril 5 mg tablet 1 tab PO DAILY mirtazapine 7.5 mg tablet 1 tab PO BEDTIME fluoxetine 20 mg capsule 60 mg PO DAILY prazosin 1 mg Capsule 4 mg PO BEDTIME 30 Days Qty: 120 0RF Protocol: Hold for SBP< HOLD for SBP < : 90 ondansetron 4 mg tablet,disintegrating 4 mg PO Q6-8H PRN (Reason: nausea and vomiting) Qty: 14 0RF fluphenazine HCl 5 mg tablet 1 tab PO BEDTIME Discharge Orders: Discharge Order (Routine); Ordered 07/31/22 Ordered By: Jose Echols Diet: Advance to usual diet Activity on Discharge: As tolerated Stand Alone Forms: Patient Portal Discharge page Care Plan Goals: Prevent self harm, tyelenol overdose Health Concerns: tyleneol overdose, sucide attempt Plan of Treatment: Take your usual medications as recommended, Do not buy or take tylenol if you have thought about harming your self please call crisis line Assessment: as above Discharge Date/Time: 07/31/22 15:15
[2022-07-31] MEDS: lisinopriL 5 MG TABLET PO (14:02)
[2022-07-31] MEDS: Benztropine Mesylate 1 MG TABLET PO (14:02)
[2022-07-31] MEDS: metFORMIN HCl 500 MG TABLET PO (14:02)
[2022-07-31] MEDS: hydrOXYzine HCL 50 MG TABLET PO (14:02)
[2022-07-31] MEDS: FLUoxetine HCl 20 MG CAPSULE 60 MG PO (14:02)
[2022-07-31] MEDS: chlorproMAZINE HCl 25 MG TABLET PO (14:02)
--- NOTE | 2022-07-31 14:40 | PC.NURSE ---
Patient cleared via psych at this time.
--- NOTE | 2022-07-31 16:34 | MHC.CM.PN ---
IMM 07/29/22 Patient is dc back to . [facility] has cleared the patient. A LYFT was ordered for transport back to .
== END 2022-07-31 15:15 | disposition home or self-care (01) | DRG 918 ==
LOC: HO.ED 21:13 → HO.EDOVER 21:17 → HO.S3 22:37 → HO.IMC 07-30 13:05
PROVIDERS: Physician Assistant; Admitting Provider Student in an Organized Health Care Education/Training Program; Emergency Provider Student in an Organized Health Care Education/Training Program; PCP Nurse Practitioner Family; Visit Provider Internal Medicine
DX: T39.1X2A Poisoning by 4-Aminophenol derivatives, intentional self-harm, initial encounter (principal); E83.42 Hypomagnesemia; E11.9 Type 2 diabetes mellitus without complications; K21.9 Gastro-esophageal reflux disease without esophagitis; Z91.51 Personal history of suicidal behavior; F17.210 Nicotine dependence, cigarettes, uncomplicated; F60.3 Borderline personality disorder; F32.9 Major depressive disorder, single episode, unspecified; E78.2 Mixed hyperlipidemia; D64.9 Anemia, unspecified; Z71.6 Tobacco abuse counseling; Z91.52 Personal history of nonsuicidal self-harm; Z20.822 Contact with and (suspected) exposure to COVID-19; Z88.0 Allergy status to penicillin; Z88.1 Allergy status to other antibiotic agents; Z88.2 Allergy status to sulfonamides; Z88.8 Allergy status to other drugs, medicaments and biological substances; Z79.51 Long term (current) use of inhaled steroids; Z79.84 Long term (current) use of oral hypoglycemic drugs; Z79.899 Other long term (current) drug therapy
CPT/HCPCS: 36415; 80048; 80053; 80076; 80143; 80179; 80307; 81001; 82077; 82140; 82803; 83690; 83735; 85025; 85027; 85610; 85730; 87635; 93005; 94640; 99283; 99284; 99285; J0132; J1200; J1650; J2930; J3475

== ENCOUNTER 2022-08-06 07:05 | Emergency (ER) | payer MEDICARE, MEDICAID, SELFPAY ==
--- NOTE | 2022-08-06 07:18 | ED.PSYCH ---
HPI - Psych General Chief Complaint: Psychiatric Symptoms Stated Complaint: HEARING VOICES,FROM [facility] PER EMS Time Seen by Provider: 08/06/22 07:11 Source: patient Mode of arrival: EMS Limitations: no limitations History of Present Illness MD complaint: suicidal ideation and feels depressed Onset (ago): day(s) (this AM) Duration: intermittent History of same: Yes Relieving factors: none Exacerbating factors: none Context: significant life stressor Associated psychiatric symptoms: depression, suicidal ideation and auditory hallucinations Associated symptoms: denies other symptoms Treatments prior to arrival: none If self harm: admits thoughts of self harm Related Data Home Medications Medication Instructions Recorded Confirmed atorvastatin 10 mg tablet 1 tab PO DAILY 05/29/21 07/30/22 fluticasone propionate 110 2 puff inhalation BID 05/29/21 07/30/22 mcg/actuation HFA aerosol inhaler (Flovent HFA) metformin 500 mg tablet 1 tab PO BID 05/29/21 07/30/22 montelukast 10 mg tablet 1 tab PO BEDTIME 05/29/21 07/30/22 verapamil 240 mg tablet,extended 240 mg PO BEDTIME 05/29/21 07/30/22 release albuterol sulfate 90 mcg/actuation 2 puff inhalation Q4H PRN 06/15/21 07/30/22 aerosol inhaler (Ventolin HFA) Shortness Of Breath trazodone 150 mg tablet 150 mg PO BEDTIME 11/05/21 07/30/22 benztropine 1 mg tablet 1 mg PO BID 12/26/21 07/30/22 fluphenazine HCl 5 mg tablet 1 tab PO BEDTIME 03/19/22 07/30/22 chlorpromazine 25 mg tablet 1 tab PO TID 06/17/22 07/30/22 hydroxyzine HCl 50 mg tablet 1 tab PO DAILY 06/17/22 07/30/22 fluoxetine 20 mg capsule 60 mg PO DAILY 07/30/22 07/30/22 lisinopril 5 mg tablet 1 tab PO DAILY 07/30/22 07/30/22 mirtazapine 7.5 mg tablet 1 tab PO BEDTIME 07/30/22 07/30/22 nicotine (polacrilex) 4 mg gum 1 ea PO Q2H PRN Smoking Cessation 07/30/22 07/30/22 Previous Rx's Medication Instructions Recorded prazosin 1 mg capsule 4 mg PO BEDTIME 30 days #120 caps 10/18/21 ondansetron 4 mg disintegrating 4 mg PO Q6-8H PRN nausea and 02/04/22 tablet vomiting #14 tabs Allergies Allergy/AdvReac Type Severity Reaction Status Date / Time Fish Containing Products Allergy Severe ANAPHYLAXIS Verified 05/06/22 20:47 codeine [Codeine] Allergy Unknown RASH Verified 05/06/22 20:47 Penicillins Allergy Unknown RASH Verified 05/06/22 20:47 prednisone [Prednisone] Allergy Unknown RASH Verified 05/06/22 20:47 Sulfa (Sulfonamide Allergy Unknown RASH Verified 05/06/22 20:47 Antibiotics) [Sulfa (Sulfonamides)] azithromycin [AZITHROMYCIN] AdvReac Severe RASH Verified 05/06/22 20:47 ziprasidone [From Geodon] AdvReac Intermediate dysuria, Verified 05/06/22 20:47 rash Review of Systems Review of Systems: Constitutional : No Fever, No Chills ENT/Mouth : No Ear Pain, No Nasal Congestion, No sore throat Eyes: No Eye Pain, No Swelling, No Redness Cardiovascular : No Chest Pain, No SOB Respiratory : No Cough, No Sputum, No Dyspnea Gastrointestinal : No Nausea, No Vomiting, No Diarrhea, No Hematochezia, No Melena Genitourinary : No Dysuria, No Urinary Frequency, No Hematuria Musculoskeletal : No Myalgias Skin : No Skin Lesions, No rash Neuro : No Weakness, No Numbness, No Paresthesias, No Dizziness, No Headache Psych : positive Anxiety, positive Depression, positive SI no HI, + AH Heme/Lymph: No Lymphadenopathy Endocrine : No Polyuria, No Polydipsia All other systems reviewed and are negative [facility] Past Medical History Attestation statement: The following information was validated with the patient. Medical History Acetaminophen overdose Borderline personality disorder Bronchitis Depression Diabetes type 2, controlled Full body hives GERD (gastroesophageal reflux disease) History of attempted suicide History of non-suicidal self-harm Hyperlipidemia Hypomagnesemia Major depression MDD (major depressive disorder), recurrent episode, severe Mood disorder Overdose PTSD (post-traumatic stress disorder) Suicide attempt Suicide attempt by acetaminophen overdose Social History Social History Household Members: Other Household Members Other:: care home Housing: Other Housing Other:: care home Do you presently have visiting nurse or other home services: No Unable to assess alcohol history related to: Unknown Alcohol intake: former Patient Tobacco Use Status: Current everyday Tobacco user Tobacco use type: Cigarette Cigarette Packs Per Day: 1 Cigarettes Per Day: 16 Years Smoked: 20 e-Cigarette/Vaping Use: Never Used Substance Use Type: Marijuana Advance Directives: No Advance Directives Information Provided: Yes service: No Current occupational status: unemployed and disabled Sexual orientation: Don't Know Physical Exam Vital Signs: Vital Signs: Last Vital Signs Temp 97.1 F 08/06/22 07:26 Pulse 94 08/06/22 07:26 Resp 16 08/06/22 07:26 BP 127/71 08/06/22 07:26 Pulse Ox 96 08/06/22 07:26 O2 Del Method 08/06/22 07:26 BMI result Body Mass Index 34.9 Appearance: Alert. Oriented X3. No acute distress. Anxious Eyes: Pupils equal, round and reactive to light. ENT: Pharynx normal. Neck: Normal inspection. Neck supple. CVS: Normal heart rate and rhythm. Pulses normal. Respiratory: No respiratory distress. Breath sounds normal. Abdomen: Soft and non-tender. Skin: Skin warm and dry. Normal skin color. Normal skin turgor. Extremities: No lower extremity edema. No calf ttp Neuro: Oriented X 3. No motor deficit. No sensory deficit. CN2-12 intact Course Course Course Narrative: cleared by CARE team MDM - Psych MDM Narrative Medical decision making narrative: 46 yo female hx of PTSD, depression here with c/o AH, thoughts of self harm - at this time will obtain COVID swab, PO ativan and refer to CARE team. Lab Data Labs: Lab Results 08/06/22 Range/Units 08:05 COVID-19 ([facility]) Negative (Negative) COVID-19 Clin Com See Note Discharge Plan Discharge Clinical Impression: Chronic posttraumatic stress disorder Patient Disposition: Home, Self-Care Instructions: Post Traumatic Stress Disorder (ED) Additional Instructions: return to ED for any worsening symptoms or concerns please follow up with your mental health providers Prescriptions: No Action metformin 500 mg tablet 1 tab PO BID atorvastatin 10 mg tablet 1 tab PO DAILY verapamil 240 mg tablet extended release 240 mg PO BEDTIME montelukast 10 mg tablet 1 tab PO BEDTIME fluticasone propionate [Flovent HFA] 110 mcg/actuation HFA aerosol inhaler 2 puff inhalation BID albuterol sulfate [Ventolin HFA] 90 mcg/actuation HFA aerosol inhaler 2 puff inhalation Q4H PRN (Reason: Shortness Of Breath) trazodone 150 mg tablet 150 mg PO BEDTIME benztropine 1 mg tablet 1 mg PO BID hydroxyzine HCl 50 mg tablet 1 tab PO DAILY chlorpromazine 25 mg tablet 1 tab PO TID nicotine (polacrilex) 4 mg gum 1 ea PO Q2H PRN (Reason: Smoking Cessation) lisinopril 5 mg tablet 1 tab PO DAILY mirtazapine 7.5 mg tablet 1 tab PO BEDTIME fluoxetine 20 mg capsule 60 mg PO DAILY prazosin 1 mg Capsule 4 mg PO BEDTIME 30 Days Qty: 120 0RF Protocol: Hold for SBP< HOLD for SBP < : 90 ondansetron 4 mg tablet,disintegrating 4 mg PO Q6-8H PRN (Reason: nausea and vomiting) Qty: 14 0RF fluphenazine HCl 5 mg tablet 1 tab PO BEDTIME
[2022-08-06 07:26] VITALS: BP 127/71; BP 138/80; PULSE 90; PULSE 94; RESP 16; TEMP 36.2; O2SAT 96; BMI 34.9
[2022-08-06] MEDS: LORazepam 1 MG TABLET 2 MG PO (07:41)
[2022-08-06] MEDS: Albuterol Sulfate 90 MCG 8 GM INHALER 2 PUFF INHALE (08:04)
[2022-08-06 08:24] LABS: COVID-19 Test Negative (Negative)
--- NOTE | 2022-08-06 11:15 | MHC.CARE ---
Pt is a 46 year old female who reports [place] [facility] [place] secondary to complaints of AH. Pt is well known to the CARE team. CARE team met with pt in [facility] pod. Pt denies SI/HI. She reports an increase in AH but she feels better now and just wants to go home. Pt reports no change in services.
== END 2022-08-06 11:52 | disposition home or self-care (01) ==
PROVIDERS: Emergency Provider Emergency Medicine
DX: F33.1 Major depressive disorder, recurrent, moderate (principal); R45.851 Suicidal ideations; R44.0 Auditory hallucinations; F17.210 Nicotine dependence, cigarettes, uncomplicated; Z20.822 Contact with and (suspected) exposure to COVID-19; Z71.6 Tobacco abuse counseling; Z79.899 Other long term (current) drug therapy
CPT/HCPCS: 87635; 99284

== ENCOUNTER 2022-08-09 10:25 | Emergency (ER) | payer MEDICARE, MEDICAID, SELFPAY ==
[2022-08-09 10:47] VITALS: BP 141/71; PULSE 94; RESP 18; TEMP 36.8; O2SAT 95; BMI 32.4
--- NOTE | 2022-08-09 11:04 | ED.PSYCH ---
HPI - Psych General Chief Complaint: Psychiatric Symptoms Stated Complaint: CRISIS Time Seen by Provider: 08/09/22 10:47 Source: EMS Mode of arrival: EMS Limitations: no limitations History of Present Illness HPI Narrative: 46-year-old female past medical history significant personality depression bipolar 2 with melancholic peatures, PTSD, DM, GERD who presents from a [facility] with reports of suicidal thoughts. No plan. No homicidal ideations. No hallucinations. Patient denies any recent substance use. She denies taking any Tylenol recently. no physical complaints Related Data Home Medications Medication Instructions Recorded Confirmed atorvastatin 10 mg tablet 1 tab PO DAILY 05/29/21 07/30/22 fluticasone propionate 110 2 puff inhalation BID 05/29/21 07/30/22 mcg/actuation HFA aerosol inhaler (Flovent HFA) metformin 500 mg tablet 1 tab PO BID 05/29/21 07/30/22 montelukast 10 mg tablet 1 tab PO BEDTIME 05/29/21 07/30/22 verapamil 240 mg tablet,extended 240 mg PO BEDTIME 05/29/21 07/30/22 release albuterol sulfate 90 mcg/actuation 2 puff inhalation Q4H PRN 06/15/21 07/30/22 aerosol inhaler (Ventolin HFA) Shortness Of Breath trazodone 150 mg tablet 150 mg PO BEDTIME 11/05/21 07/30/22 benztropine 1 mg tablet 1 mg PO BID 12/26/21 07/30/22 fluphenazine HCl 5 mg tablet 1 tab PO BEDTIME 03/19/22 07/30/22 chlorpromazine 25 mg tablet 1 tab PO TID 06/17/22 07/30/22 hydroxyzine HCl 50 mg tablet 1 tab PO DAILY 06/17/22 07/30/22 fluoxetine 20 mg capsule 60 mg PO DAILY 07/30/22 07/30/22 lisinopril 5 mg tablet 1 tab PO DAILY 07/30/22 07/30/22 mirtazapine 7.5 mg tablet 1 tab PO BEDTIME 07/30/22 07/30/22 nicotine (polacrilex) 4 mg gum 1 ea PO Q2H PRN Smoking Cessation 07/30/22 07/30/22 Previous Rx's Medication Instructions Recorded prazosin 1 mg capsule 4 mg PO BEDTIME 30 days #120 caps 10/18/21 ondansetron 4 mg disintegrating 4 mg PO Q6-8H PRN nausea and 02/04/22 tablet vomiting #14 tabs Allergies Allergy/AdvReac Type Severity Reaction Status Date / Time Fish Containing Products Allergy Severe ANAPHYLAXIS Verified 05/06/22 20:47 codeine [Codeine] Allergy Unknown RASH Verified 05/06/22 20:47 Penicillins Allergy Unknown RASH Verified 05/06/22 20:47 prednisone [Prednisone] Allergy Unknown RASH Verified 05/06/22 20:47 Sulfa (Sulfonamide Allergy Unknown RASH Verified 05/06/22 20:47 Antibiotics) [Sulfa (Sulfonamides)] azithromycin [AZITHROMYCIN] AdvReac Severe RASH Verified 05/06/22 20:47 ziprasidone [From Geodon] AdvReac Intermediate dysuria, Verified 05/06/22 20:47 rash Review of Systems Review of Systems: Yes all other systems are reviewed and are negative Constitutional: Constitutional: Reports no additional constitutional complaints, Denies body ache(s), Denies chills, Denies fever(s), Denies headache(s) and Denies weakness Eyes: Eyes: Reports no additional eye complaints and Denies change in vision ENT: Reports system reviewed and no additional complaints, except as documented, Denies dizziness, Denies headache(s), Denies nasal congestion, Denies nasal discharge and Denies neck pain Cardiovascular: Cardiovascular: Reports no additional cardiovascular complaints, Denies chest pain, Denies leg edema and Denies dyspnea Respiratory: Respiratory: Reports no additional respiratory complaints, Denies cough and Denies dyspnea Gastrointestinal: Gastrointestinal: Reports no additional gastrointestinal complaints, Denies abdominal pain, Denies diarrhea, Denies nausea and Denies vomiting Genitourinary: Genitourinary: Reports no additional female genitourinary complaints and Denies urinary incontinence Musculoskeletal: Musculoskeletal: Reports no additional musculoskeletal complaints, Denies back pain, Denies arthralgias, Denies joint swelling, Denies neck pain, Denies numbness and Denies tingling Integumentary/Breasts: Skin/Breast: Reports system reviewed and no additional complaints, except as docu and Denies rash Neurologic: Reports system reviewed and no additional complaints, except as documented, Denies Abnormal speech present, Denies dizziness, Denies headache(s), Denies numbness, Denies tingling and Denies weakness Psychiatric: Psychiatric: Reports depression and Reports suicidal ideation [facility] Past Medical History Attestation statement: The following information was validated with the patient. 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: Other Household Members Other:: [facility] Housing: Other Housing Other:: [facility] Do you presently have visiting nurse or other home services: No Unable to assess alcohol history related to: Unknown Alcohol intake: former Patient Tobacco Use Status: Current everyday Tobacco user Tobacco use type: Cigarette Cigarette Packs Per Day: 1 Cigarettes Per Day: 16 Years Smoked: 20 e-Cigarette/Vaping Use: Never Used Substance Use Type: Marijuana Advance Directives: No service: No Current occupational status: unemployed and disabled Sexual orientation: Don't Know Physical Exam Vital Signs: Vital Signs: Last Vital Signs Temp 98.3 F 08/09/22 10:47 Pulse 94 08/09/22 10:47 Resp 18 08/09/22 10:47 BP 141/71 H 08/09/22 10:47 Pulse Ox 95 08/09/22 10:47 O2 Del Method 08/09/22 10:47 BMI result Body Mass Index 32.4 Const: General: cooperative, healthy appearing, comfortable and no acute distress Orientation/consciousness: patient oriented x3 Limitations: no limitations HEENT: Head: Yes normal to inspection Ears: hearing grossly normal bilaterally General nose exam: Normal external nose present Face and sinus: Yes normal facial exam Mouth: Normal oral and palatal mucosa present Throat: Yes posterior oropharynx normal Eyes: General: appearance normal, both eyes and all related structures Pupils: Equal, round and reactive pupils present Neck: Neck: Yes normal visual inspection Chest: Chest palpation & inspection: normal inspection of the chest Resp: Effort & Inspection: normal respiratory effort Auscultation: clear to auscultation bilaterally Cardio: Rate: regular rate Rhythm: regular rhythm Peripheral pulses: Peripheral pulses 2+ throughout GI: Inspection: Yes normal to inspection Palpation (GI): Soft to palpation and nontender Auscultation: normal bowel sounds Back/Spine/Pelvis: Thoracic/Lumbar Spine: thoracic and lumbar spine normal to inspection Skin: General skin exam: no rashes or lesions noted Neuro: General: patient oriented x3, no focal motor deficits and normal sensation to monofilament Cranial nerves: Yes CN's II-XII intact bilaterally and Yes Equal, round and reactive pupils present Cognition (Neuro): normal cognition Speech: No Abnormal speech present Gait exam (Neuro): Normal gait present Motor exam (neuro): 5/5 motor strength present throughout Extrem: General: Yes normal to inspection MDM - Psych MDM Narrative Medical decision making narrative: This is a 46-year-old female who has an underlying history of borderline personality disorder, bipolar and chronic PTSD who presents with reports of suicidal thoughts after some stressful events at the [facility]. Patient denies any plan, hallucinations, HI, substance use, any usage of Tylenol today. Seen by care team (joshua). Patient was contracted for safety. Plan for discharge back to [facility] Reviewed worrisome signs and symptoms of when to return to the emergency room. Comfortable discharge home. Medical Records Attestation: I reviewed the patient's medical records. Lab Data Attestation: I reviewed the patient's lab results. Discharge Plan Discharge Clinical Impression: Borderline personality disorder Patient Disposition: Home, Self-Care Instructions: Borderline Personality Disorder (DC) Prescriptions: No Action metformin 500 mg tablet 1 tab PO BID atorvastatin 10 mg tablet 1 tab PO DAILY verapamil 240 mg tablet extended release 240 mg PO BEDTIME montelukast 10 mg tablet 1 tab PO BEDTIME fluticasone propionate [Flovent HFA] 110 mcg/actuation HFA aerosol inhaler 2 puff inhalation BID albuterol sulfate [Ventolin HFA] 90 mcg/actuation HFA aerosol inhaler 2 puff inhalation Q4H PRN (Reason: Shortness Of Breath) trazodone 150 mg tablet 150 mg PO BEDTIME benztropine 1 mg tablet 1 mg PO BID hydroxyzine HCl 50 mg tablet 1 tab PO DAILY chlorpromazine 25 mg tablet 1 tab PO TID nicotine (polacrilex) 4 mg gum 1 ea PO Q2H PRN (Reason: Smoking Cessation) lisinopril 5 mg tablet 1 tab PO DAILY mirtazapine 7.5 mg tablet 1 tab PO BEDTIME fluoxetine 20 mg capsule 60 mg PO DAILY prazosin 1 mg Capsule 4 mg PO BEDTIME 30 Days Qty: 120 0RF Protocol: Hold for SBP< HOLD for SBP < : 90 ondansetron 4 mg tablet,disintegrating 4 mg PO Q6-8H PRN (Reason: nausea and vomiting) Qty: 14 0RF fluphenazine HCl 5 mg tablet 1 tab PO BEDTIME Interventions: ED Discharge Assessment Last Done: 08/09/22 11:18 Discharge Date/Time: 08/09/22 11:20
--- NOTE | 2022-08-09 11:34 | MHC.CARE ---
Pt?s Care Plan was reviewed. Today, pt was transported to this facility from the community via ambulance with a complaint of SI and self-harm urges, after being told that her friend had .? Pt stated that her neighbor, a friend of the prison residents, had fallen ill and then .? Pt stated she was grief stricken, as are the other residents of the prison, after hearing the news.? Pt stated that she and the other residents would frequently visit the neighbor and had grown fond of her.? She reports that the neighbor was an older woman. CARE Team spoke with pt regarding grief and processing grief at length.? During the conversation, pt stated that she ?Freaked out? and ?Didn?t know what to do? so she called an ambulance and asked that she be transported to this facility.? After further discussion, pt determined that she would best be able to process her grief at home with her house mates and staff.? Pt denied any SI or self-harm urges. Plan is for pt to be discharged back to her prison.? This plan was discussed with and agreed upon by ED provider Dr. Srivastava and pt?s nurse WALKER Collazo. CARE Team contacted pt?s Nursing Home and they were advised of the discharge and were asked to arrange for a Lyft ride back to the Nursing Home.? PT has exhausted her Hospital provided Lyft rides for the month.
== END 2022-08-09 11:20 | disposition home or self-care (01) ==
PROVIDERS: Emergency Provider Emergency Medicine
DX: F33.1 Major depressive disorder, recurrent, moderate (principal); R45.851 Suicidal ideations; F17.210 Nicotine dependence, cigarettes, uncomplicated; Z71.6 Tobacco abuse counseling; Z79.899 Other long term (current) drug therapy
CPT/HCPCS: 99282; 99283

== ENCOUNTER 2022-08-16 10:16 | Emergency (ER) | payer MEDICARE, MEDICAID, SELFPAY ==
[2022-08-16 10:22] VITALS: BP 107/68; BP 132/84; PULSE 90; RESP 16; TEMP 36.6; O2SAT 97; O2SAT 98; BMI 34.9
--- NOTE | 2022-08-16 10:26 | ED.PSYCH ---
HPI - Psych General Chief Complaint: Psychiatric Symptoms Stated Complaint: SI,SIGNS OF CUTTING, NO CUTTING TODAY PER EMS Time Seen by Provider: 08/16/22 10:24 Source: patient Mode of arrival: EMS Limitations: no limitations History of Present Illness HPI Narrative: 46 yo female well known to us here with c/o AH telling her to hurt herself centered around her bio mom's anniversary complaint: suicidal ideation, feels depressed and hallucinations Onset (ago): day(s) (few) Duration: constant History of same: Yes Relieving factors: none Exacerbating factors: other Context: significant life stressor Associated psychiatric symptoms: depression and auditory hallucinations Associated symptoms: denies other symptoms Treatments prior to arrival: none If self harm: admits thoughts of self harm and has plan Related Data Home Medications Medication Instructions Recorded Confirmed atorvastatin 10 mg tablet 1 tab PO DAILY 05/29/21 07/30/22 fluticasone propionate 110 2 puff inhalation BID 05/29/21 07/30/22 mcg/actuation HFA aerosol inhaler (Flovent HFA) metformin 500 mg tablet 1 tab PO BID 05/29/21 07/30/22 montelukast 10 mg tablet 1 tab PO BEDTIME 05/29/21 07/30/22 verapamil 240 mg tablet,extended 240 mg PO BEDTIME 05/29/21 07/30/22 release albuterol sulfate 90 mcg/actuation 2 puff inhalation Q4H PRN 06/15/21 07/30/22 aerosol inhaler (Ventolin HFA) Shortness Of Breath trazodone 150 mg tablet 150 mg PO BEDTIME 11/05/21 07/30/22 benztropine 1 mg tablet 1 mg PO BID 12/26/21 07/30/22 fluphenazine HCl 5 mg tablet 1 tab PO BEDTIME 03/19/22 07/30/22 chlorpromazine 25 mg tablet 1 tab PO TID 06/17/22 07/30/22 hydroxyzine HCl 50 mg tablet 1 tab PO DAILY 06/17/22 07/30/22 fluoxetine 20 mg capsule 60 mg PO DAILY 07/30/22 07/30/22 lisinopril 5 mg tablet 1 tab PO DAILY 07/30/22 07/30/22 mirtazapine 7.5 mg tablet 1 tab PO BEDTIME 07/30/22 07/30/22 nicotine (polacrilex) 4 mg gum 1 ea PO Q2H PRN Smoking Cessation 07/30/22 07/30/22 Previous Rx's Medication Instructions Recorded prazosin 1 mg capsule 4 mg PO BEDTIME 30 days #120 caps 10/18/21 ondansetron 4 mg disintegrating 4 mg PO Q6-8H PRN nausea and 02/04/22 tablet vomiting #14 tabs Allergies Allergy/AdvReac Type Severity Reaction Status Date / Time Fish Containing Products Allergy Severe ANAPHYLAXIS Verified 05/06/22 20:47 codeine [Codeine] Allergy Unknown RASH Verified 05/06/22 20:47 Penicillins Allergy Unknown RASH Verified 05/06/22 20:47 prednisone [Prednisone] Allergy Unknown RASH Verified 05/06/22 20:47 Sulfa (Sulfonamide Allergy Unknown RASH Verified 05/06/22 20:47 Antibiotics) [Sulfa (Sulfonamides)] azithromycin [AZITHROMYCIN] AdvReac Severe RASH Verified 05/06/22 20:47 ziprasidone [From Geodon] AdvReac Intermediate dysuria, Verified 05/06/22 20:47 rash Review of Systems Review of Systems: Constitutional : No Fever, No Chills ENT/Mouth : No Ear Pain, No Nasal Congestion, No sore throat Eyes: No Eye Pain, No Swelling, No Redness Cardiovascular : No Chest Pain, No SOB Respiratory : No Cough, No Sputum, No Dyspnea Gastrointestinal : No Nausea, No Vomiting, No Diarrhea, No Hematochezia, No Melena Genitourinary : No Dysuria, No Urinary Frequency, No Hematuria Musculoskeletal : No Myalgias Skin : No Skin Lesions, No rash Neuro : No Weakness, No Numbness, No Paresthesias, No Dizziness, No Headache Psych : positive Anxiety, positive Depression, positive SI no HI, pos AH Heme/Lymph: No Lymphadenopathy Endocrine : No Polyuria, No Polydipsia All other systems reviewed and are negative [facility] Past Medical History Source: old records reviewed Medical History Acetaminophen overdose Borderline personality disorder Bronchitis Depression Diabetes type 2, controlled Full body hives GERD (gastroesophageal reflux disease) History of attempted suicide History of non-suicidal self-harm Hyperlipidemia Hypomagnesemia Major depression MDD (major depressive disorder), recurrent episode, severe Mood disorder Overdose PTSD (post-traumatic stress disorder) Suicide attempt Suicide attempt by acetaminophen overdose Social History Social History Household Members: Other Household Members Other:: [facility] Housing: Other Housing Other:: [facility] Do you presently have visiting nurse or other home services: No Unable to assess alcohol history related to: Unknown Alcohol intake: former Patient Tobacco Use Status: Current everyday Tobacco user Tobacco use type: Cigarette Cigarette Packs Per Day: 1 Cigarettes Per Day: 16 Years Smoked: 20 e-Cigarette/Vaping Use: Never Used Substance Use Type: Marijuana Advance Directives: No Advance Directives Information Provided: No service: No Current occupational status: unemployed and disabled Sexual orientation: Don't Know Physical Exam Vital Signs: Vital Signs: Last Vital Signs Temp 98 F 08/16/22 10:22 Pulse 90 08/16/22 10:22 Resp 16 08/16/22 10:22 BP 107/68 08/16/22 10:22 Pulse Ox 97 08/16/22 10:22 O2 Del Method 08/16/22 10:22 BMI result Body Mass Index 34.9 Appearance: Alert. Oriented X3. No acute distress. anxious pacing around Eyes: Pupils equal, round and reactive to light. ENT: Pharynx normal. Neck: Normal inspection. Neck supple. CVS: Normal heart rate and rhythm. Pulses normal. Respiratory: No respiratory distress. Breath sounds normal. Abdomen: Soft and nontender. Skin: Skin warm and dry. Normal skin color. Normal skin turgor. Extremities: No lower extremity edema. No calf ttp Neuro: Oriented X 3. No motor deficit. No sensory deficit. CN 2-12 intact Course Course Course Narrative: cleared by CARE team MDM - Psych MDM Narrative Medical decision making narrative: 46 yo female chronic complaint of SI no reported ingestions or self harm at this time - will refer to CARE team, PO ativan for anxiety Lab Data Labs: Lab Results 08/16/22 08/16/22 Range/Units 11:06 11:06 Urine Opiates Screen Not Detected (Not Detect) Urine Fentanyl Screen Not Detected (Not Detect) Ur Barbiturates Screen Not Detected (Not Detect) Ur Phencyclidine Scrn Not Detected (Not Detect) Ur Amphetamines Screen Not Detected (Not Detect) U Benzodiazepines Scrn Not Detected (Not Detect) Urine Cocaine Screen Not Detected (Not Detect) U Marijuana (THC) Screen Not Detected (Not Detect) COVID-19 (NICK) Negative (Negative) COVID-19 Clin Com See Note Discharge Plan Discharge Clinical Impression: Depression Qualifiers: Depression Type: unspecified Qualified Code(s): F32.A - Depression, unspecified Patient Disposition: Home, Self-Care Instructions: Depression (ED) Additional Instructions: return to ED for any worsening symptoms or concerns follow up with your mental health providers Prescriptions: No Action metformin 500 mg tablet 1 tab PO BID atorvastatin 10 mg tablet 1 tab PO DAILY verapamil 240 mg tablet extended release 240 mg PO BEDTIME montelukast 10 mg tablet 1 tab PO BEDTIME fluticasone propionate [Flovent HFA] 110 mcg/actuation HFA aerosol inhaler 2 puff inhalation BID albuterol sulfate [Ventolin HFA] 90 mcg/actuation HFA aerosol inhaler 2 puff inhalation Q4H PRN (Reason: Shortness Of Breath) trazodone 150 mg tablet 150 mg PO BEDTIME benztropine 1 mg tablet 1 mg PO BID hydroxyzine HCl 50 mg tablet 1 tab PO DAILY chlorpromazine 25 mg tablet 1 tab PO TID nicotine (polacrilex) 4 mg gum 1 ea PO Q2H PRN (Reason: Smoking Cessation) lisinopril 5 mg tablet 1 tab PO DAILY mirtazapine 7.5 mg tablet 1 tab PO BEDTIME fluoxetine 20 mg capsule 60 mg PO DAILY prazosin 1 mg Capsule 4 mg PO BEDTIME 30 Days Qty: 120 0RF Protocol: Hold for SBP< HOLD for SBP < : 90 ondansetron 4 mg tablet,disintegrating 4 mg PO Q6-8H PRN (Reason: nausea and vomiting) Qty: 14 0RF fluphenazine HCl 5 mg tablet 1 tab PO BEDTIME
[2022-08-16] MEDS: LORazepam 1 MG TABLET PO (10:36)
[2022-08-16 11:28] LABS: COVID-19 Test Negative (Negative); IDNOW Serial# 9DB6401D
[2022-08-16 11:33] LABS: Amphetamine Screen Urine Not Detected (Not Detect); Barbiturates, Urine Not Detected (Not Detect); Benzodiazepines Screen Urine Not Detected (Not Detect); Cannabinoid Screen Urine Not Detected (Not Detect); Cocaine Screen Urine Not Detected (Not Detect); Fentanyl, urine Not Detected (Not Detect); Opiate Screen Urine Not Detected (Not Detect); Phencyclidine Screen Urine Not Detected (Not Detect)
--- NOTE | 2022-08-16 12:17 | PC.NURSE ---
Care team called Juan Daniel for patient
--- NOTE | 2022-08-16 12:18 | MHC.CARE ---
Patient reported that she called [employer] police non-emergency asking for a preferred co-response clinician to meet with her at home. When she was unable to access that diversion, patient scratched her arm with a staple and expressed suicidal ideation so an ambulance was dispatched to her house then transported to [facility] ED. Almost immediately after arrival patient recanted her statements saying she thought about her friends and staff that care about her and decided she wants to live. Patient is future oriented, has to work tomorrow and was proud to announce she received a pay check today. Patient has not been to any EDs since last week and has been trying to use available supports was encouraged to add an alternative person to reach out to if unable to reach co response, she does call crisis frequently but they sometimes send an ambulance vs talking when there appears to be a risk. At this time patient is not having a crisis and does not need to stay here at the hospital for any further interventions. ED provider, Dr. Hernandez updated and in agreement with plan to discharge. CARE Team will call patient this afternoon for a check in, she is aware and prefers late afternoon.
--- NOTE | 2022-08-17 19:33 | MHC.CARE ---
Care Team had a telephonic encounter with [facility] Direct Care staff Monique Candelaria and she reported pt is not present at the [place] [facility] as she is with her friend. She reported pt will return to [facility] between the hours 8 and 9 pm to take her medication and she will notify the pt then about this securities underwriter call. She reported BAN Carbajal spoke to the pt and she also checked in earlier today with pt. She reported pt is doing fine. This securities underwriter will re-attempt to contact pt for a follow up.
--- NOTE | 2022-08-17 20:10 | MHC.CARE ---
Care Team had telephonic encounter with [facility] Staff Monique Candelaria and she reported pt has not returned. However, she will have pt call this chief underwriter once she returns. Purpose of call was to follow up with pt.
--- NOTE | 2022-08-17 22:35 | MHC.CARE ---
Care Team received a call from pt and she reported having a rough day today due to CAH and requested a call tomorrow.
== END 2022-08-16 12:27 | disposition home or self-care (01) ==
PROVIDERS: Emergency Provider Emergency Medicine
DX: F33.1 Major depressive disorder, recurrent, moderate (principal); R45.851 Suicidal ideations; R44.0 Auditory hallucinations; F17.210 Nicotine dependence, cigarettes, uncomplicated; Z20.822 Contact with and (suspected) exposure to COVID-19; Z79.899 Other long term (current) drug therapy; Z71.6 Tobacco abuse counseling
CPT/HCPCS: 80307; 87635; 99283; 99284

== ENCOUNTER 2022-08-19 19:28 | Emergency (ER) | payer MEDICARE, MEDICAID, SELFPAY ==
[2022-08-19 19:55] VITALS: BP 132/60; BP 163/101; PULSE 106; PULSE 140; RESP 16; TEMP 36.6; O2SAT 98; O2SAT 99; BMI 34.9
[2022-08-19 20:23] LABS: Appearance Urine Clear; Color Urine Yellow; Glucose Urine UA Negative (Negative); Leukocyte Esterase Urine Negative (Negative); Nitrite Urine Negative (Negative); PH 6.5 (5.0-9.0); Specific Gravity - Urine <= 1.005 (1.005-1.025); Urine Blood Negative (Negative); Urine Ketones Negative (Negative); Urine Protein Negative (Neg-Trace)
[2022-08-19 20:33] LABS: Amphetamine Screen Urine Not Detected (Not Detect); Barbiturates, Urine Not Detected (Not Detect); Benzodiazepines Screen Urine Not Detected (Not Detect); Cannabinoid Screen Urine Not Detected (Not Detect); Cocaine Screen Urine Not Detected (Not Detect); Fentanyl, urine Not Detected (Not Detect); Opiate Screen Urine Not Detected (Not Detect); Phencyclidine Screen Urine Not Detected (Not Detect)
--- NOTE | 2022-08-19 20:34 | ED.PSYCH ---
HPI - Psych General Chief Complaint: Psychiatric Symptoms Stated Complaint: SI Time Seen by Provider: 08/19/22 19:57 Source: patient and EMS Mode of arrival: EMS Limitations: no limitations History of Present Illness HPI Narrative: 46-year-old female presents via EMS for auditory hallucinations, self injuries behaviors, and suicidal ideation. Patient states that she does not feel safe at home. MD complaint: suicidal ideation, feels depressed, anxiety and hallucinations Onset (ago): year(s) Duration: constant History of same: Yes Relieving factors: none Associated psychiatric symptoms: depression, suicidal ideation and auditory hallucinations Associated symptoms: denies other symptoms If self harm: admits thoughts of self harm, has plan and has acted on plan Related Data Home Medications Medication Instructions Recorded Confirmed atorvastatin 10 mg tablet 1 tab PO DAILY 05/29/21 07/30/22 fluticasone propionate 110 2 puff inhalation BID 05/29/21 07/30/22 mcg/actuation HFA aerosol inhaler (Flovent HFA) metformin 500 mg tablet 1 tab PO BID 05/29/21 07/30/22 montelukast 10 mg tablet 1 tab PO BEDTIME 05/29/21 07/30/22 verapamil 240 mg tablet,extended 240 mg PO BEDTIME 05/29/21 07/30/22 release albuterol sulfate 90 mcg/actuation 2 puff inhalation Q4H PRN 06/15/21 07/30/22 aerosol inhaler (Ventolin HFA) Shortness Of Breath trazodone 150 mg tablet 150 mg PO BEDTIME 11/05/21 07/30/22 benztropine 1 mg tablet 1 mg PO BID 12/26/21 07/30/22 fluphenazine HCl 5 mg tablet 1 tab PO BEDTIME 03/19/22 07/30/22 chlorpromazine 25 mg tablet 1 tab PO TID 06/17/22 07/30/22 hydroxyzine HCl 50 mg tablet 1 tab PO DAILY 06/17/22 07/30/22 fluoxetine 20 mg capsule 60 mg PO DAILY 07/30/22 07/30/22 lisinopril 5 mg tablet 1 tab PO DAILY 07/30/22 07/30/22 mirtazapine 7.5 mg tablet 1 tab PO BEDTIME 07/30/22 07/30/22 nicotine (polacrilex) 4 mg gum 1 ea PO Q2H PRN Smoking Cessation 07/30/22 07/30/22 Previous Rx's Medication Instructions Recorded prazosin 1 mg capsule 4 mg PO BEDTIME 30 days #120 caps 10/18/21 ondansetron 4 mg disintegrating 4 mg PO Q6-8H PRN nausea and 02/04/22 tablet vomiting #14 tabs Allergies Allergy/AdvReac Type Severity Reaction Status Date / Time Fish Containing Products Allergy Severe ANAPHYLAXIS Verified 05/06/22 20:47 codeine [Codeine] Allergy Unknown RASH Verified 05/06/22 20:47 Penicillins Allergy Unknown RASH Verified 05/06/22 20:47 prednisone [Prednisone] Allergy Unknown RASH Verified 05/06/22 20:47 Sulfa (Sulfonamide Allergy Unknown RASH Verified 05/06/22 20:47 Antibiotics) [Sulfa (Sulfonamides)] azithromycin [AZITHROMYCIN] AdvReac Severe RASH Verified 05/06/22 20:47 ziprasidone [From Geodon] AdvReac Intermediate dysuria, Verified 05/06/22 20:47 rash Review of Systems Review of Systems: Constitutional: No Fever, No Chills ENT/Mouth: No Ear Pain, No Nasal Congestion, No sore throat Eyes: No Eye Pain, No Swelling, No Redness Cardiovascular: No Chest Pain, No SOB Respiratory: No Cough, No Sputum, No Dyspnea Gastrointestinal: No Nausea, No Vomiting, No Diarrhea, No Hematochezia, No Melena Genitourinary: No Dysuria, No Urinary Frequency, No Hematuria Musculoskeletal: No Myalgias Skin: Positive superficial lacerations No Skin Lesions, No rash Neuro: No Weakness, No Numbness, No Paresthesias, No Dizziness, No Headache Psych: positive Anxiety, positive Depression, positive SI Heme/Lymph: No Lymphadenopathy Endocrine: No Polyuria, No Polydipsia Yes all other systems are reviewed and are negative [facility] Past Medical History Attestation statement: The following information was validated with the patient. Source: old records reviewed Medical History Acetaminophen overdose Borderline personality disorder Bronchitis Depression Diabetes type 2, controlled Full body hives GERD (gastroesophageal reflux disease) History of attempted suicide History of non-suicidal self-harm Hyperlipidemia Hypomagnesemia Major depression MDD (major depressive disorder), recurrent episode, severe Mood disorder Overdose PTSD (post-traumatic stress disorder) Suicide attempt Suicide attempt by acetaminophen overdose Social History Social History Household Members: Other Household Members Other:: snf Housing: Other Housing Other:: snf Do you presently have visiting nurse or other home services: No Unable to assess alcohol history related to: Unknown Alcohol intake: former Patient Tobacco Use Status: Current everyday Tobacco user Tobacco use type: Cigarette Cigarette Packs Per Day: 1 Cigarettes Per Day: 16 Years Smoked: 20 e-Cigarette/Vaping Use: Never Used Substance Use Type: Marijuana Advance Directives: No Advance Directives Information Provided: No service: No Current occupational status: unemployed and disabled Sexual orientation: Don't Know Physical Exam Vital Signs: Vital Signs: Last Vital Signs Temp 97.8 F 08/19/22 19:55 Pulse 106 H 08/19/22 19:55 Resp 16 08/19/22 19:55 BP 163/101 H 08/19/22 19:55 Pulse Ox 98 08/19/22 19:55 O2 Del Method 08/19/22 19:55 BMI result Body Mass Index 34.9 Appearance: Alert.? Oriented X3.? No acute distress.? Eyes: Pupils equal, round and reactive to light. ENT: Pharynx normal. Neck: Normal inspection.? Neck supple. CVS: Normal heart rate and rhythm.? Pulses normal. Respiratory: No respiratory distress.? Breath sounds normal. Abdomen: Soft and nontender. Skin:? Multiple superficial self-inflicted injuries to arms, abdomen and legs, numerous scars from self-inflicted injuries to all extremities. Extremities: No lower extremity edema.? Gait well-balanced well coordinated. Neuro: No motor deficit.? No sensory deficit.? Cranial nerves 2 12 intact. Course Course Course Narrative: 46-year-old female presents via EMS for intrusive thoughts telling her to cut herself. She does have some superficial abrasions to bilateral arms and abdomen. Patient has a care plan in place. Will follow care plan protocol. 21:03 COVID negative, urinalysis and tox screen negative. Tylenol negative. Patient medically cleared. Care team consult pending. Patient will be discharged to home with outpatient follow-up. MDM - Psych Differential Diagnosis Differential diagnosis: Likely acute psychosis, bipolar disorder, depression, acute anxiety and mood disorder Medical Records Attestation: I reviewed the patient's medical records. Lab Data Attestation: I reviewed the patient's lab results. Labs: Lab Results 08/19/22 08/19/22 08/19/22 Range/Units 20:10 20:10 20:10 Urine Color Yellow Urine Appearance Clear Urine pH 6.5 (5.0-9.0) Ur Specific [place] <= 1.005 (1.005-1.025) Urine Protein Negative (Neg-Trace) mg/dL Urine Glucose (UA) Negative (Negative) mg/dL Urine Ketones Negative (Negative) mg/dL Urine Blood Negative (Negative) Urine Nitrite Negative (Negative) Ur Leukocyte Esterase Negative (Negative) Urine Opiates Screen Not Detected (Not Detect) Urine Fentanyl Screen Not Detected (Not Detect) Ur Barbiturates Screen Not Detected (Not Detect) Ur Phencyclidine Scrn Not Detected (Not Detect) Ur Amphetamines Screen Not Detected (Not Detect) U Benzodiazepines Scrn Not Detected (Not Detect) Urine Cocaine Screen Not Detected (Not Detect) U Marijuana (THC) Screen Not Detected (Not Detect) COVID-19 (NICK) Negative (Negative) COVID-19 Clin Com See Note Discharge Plan Discharge Clinical Impression: Depression, Acute anxiety Patient Disposition: Home, Self-Care Instructions: Anxiety (ED), Depression (ED) Additional Instructions: Follow-up with outpatient psychiatry as scheduled. Thank you for choosing this emergency department for evaluation. Please follow-up with primary care physician as needed. Return to the emergency department for any new, concerning, or worsening symptoms. Prescriptions: No Action metformin 500 mg tablet 1 tab PO BID atorvastatin 10 mg tablet 1 tab PO DAILY verapamil 240 mg tablet extended release 240 mg PO BEDTIME montelukast 10 mg tablet 1 tab PO BEDTIME fluticasone propionate [Flovent HFA] 110 mcg/actuation HFA aerosol inhaler 2 puff inhalation BID albuterol sulfate [Ventolin HFA] 90 mcg/actuation HFA aerosol inhaler 2 puff inhalation Q4H PRN (Reason: Shortness Of Breath) trazodone 150 mg tablet 150 mg PO BEDTIME benztropine 1 mg tablet 1 mg PO BID hydroxyzine HCl 50 mg tablet 1 tab PO DAILY chlorpromazine 25 mg tablet 1 tab PO TID nicotine (polacrilex) 4 mg gum 1 ea PO Q2H PRN (Reason: Smoking Cessation) lisinopril 5 mg tablet 1 tab PO DAILY mirtazapine 7.5 mg tablet 1 tab PO BEDTIME fluoxetine 20 mg capsule 60 mg PO DAILY prazosin 1 mg Capsule 4 mg PO BEDTIME 30 Days Qty: 120 0RF Protocol: Hold for SBP< HOLD for SBP < : 90 ondansetron 4 mg tablet,disintegrating 4 mg PO Q6-8H PRN (Reason: nausea and vomiting) Qty: 14 0RF fluphenazine HCl 5 mg tablet 1 tab PO BEDTIME
[2022-08-19 20:35] LABS: COVID-19 Test Negative (Negative)
[2022-08-19 21:12] LABS: Acetaminophen LAB < 1 mcg/mL (<30)
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
== END 2022-08-19 21:38 | disposition home or self-care (01) ==
PROVIDERS: Nurse Practitioner Family; Emergency Provider Student in an Organized Health Care Education/Training Program; PCP Nurse Practitioner Family
DX: F32.A Depression, unspecified (principal); F41.9 Anxiety disorder, unspecified; R45.851 Suicidal ideations; R44.0 Auditory hallucinations; F60.3 Borderline personality disorder; E11.9 Type 2 diabetes mellitus without complications; E78.5 Hyperlipidemia, unspecified; F43.10 Post-traumatic stress disorder, unspecified; Z91.52 Personal history of nonsuicidal self-harm; F17.200 Nicotine dependence, unspecified, uncomplicated; Z79.02 Long term (current) use of antithrombotics/antiplatelets; Z79.84 Long term (current) use of oral hypoglycemic drugs; Z79.899 Other long term (current) drug therapy; Z20.822 Contact with and (suspected) exposure to COVID-19
CPT/HCPCS: 36415; 80143; 80307; 81003; 87635; 99282; 99283

== ENCOUNTER 2022-08-21 16:32 | Emergency (ER) | payer MEDICARE, MEDICAID, SELFPAY ==
[2022-08-21 16:36] VITALS: BP 128/78; BP 132/85; PULSE 122; PULSE 84; RESP 18; TEMP 36.1; O2SAT 96; BMI 42.9
--- NOTE | 2022-08-21 16:40 | ED.PSYCH ---
HPI - Psych General Chief Complaint: Psychiatric Symptoms Stated Complaint: SI Time Seen by Provider: 08/21/22 16:38 Source: patient and EMS Mode of arrival: EMS Limitations: no limitations History of Present Illness HPI Narrative: Lucita is well known to us multiple ED visited to this emergency department for SI, she presented again complaining of depression and SI. She arrived by ambulance she lives in a [place] [facility] . She has history of borderline personality disorder, PTSD, major depression. MD complaint: suicidal ideation Onset (ago): day(s) (1) Duration: constant History of same: Yes Relieving factors: none Exacerbating factors: none Treatments prior to arrival: none Related Data Home Medications Medication Instructions Recorded Confirmed atorvastatin 10 mg tablet 1 tab PO DAILY 05/29/21 07/30/22 fluticasone propionate 110 2 puff inhalation BID 05/29/21 07/30/22 mcg/actuation HFA aerosol inhaler (Flovent HFA) metformin 500 mg tablet 1 tab PO BID 05/29/21 07/30/22 montelukast 10 mg tablet 1 tab PO BEDTIME 05/29/21 07/30/22 verapamil 240 mg tablet,extended 240 mg PO BEDTIME 05/29/21 07/30/22 release albuterol sulfate 90 mcg/actuation 2 puff inhalation Q4H PRN 06/15/21 07/30/22 aerosol inhaler (Ventolin HFA) Shortness Of Breath trazodone 150 mg tablet 150 mg PO BEDTIME 11/05/21 07/30/22 benztropine 1 mg tablet 1 mg PO BID 12/26/21 07/30/22 fluphenazine HCl 5 mg tablet 1 tab PO BEDTIME 03/19/22 07/30/22 chlorpromazine 25 mg tablet 1 tab PO TID 06/17/22 07/30/22 hydroxyzine HCl 50 mg tablet 1 tab PO DAILY 06/17/22 07/30/22 fluoxetine 20 mg capsule 60 mg PO DAILY 07/30/22 07/30/22 lisinopril 5 mg tablet 1 tab PO DAILY 07/30/22 07/30/22 mirtazapine 7.5 mg tablet 1 tab PO BEDTIME 07/30/22 07/30/22 nicotine (polacrilex) 4 mg gum 1 ea PO Q2H PRN Smoking Cessation 07/30/22 07/30/22 Previous Rx's Medication Instructions Recorded prazosin 1 mg capsule 4 mg PO BEDTIME 30 days #120 caps 10/18/21 ondansetron 4 mg disintegrating 4 mg PO Q6-8H PRN nausea and 02/04/22 tablet vomiting #14 tabs Allergies Allergy/AdvReac Type Severity Reaction Status Date / Time Fish Containing Products Allergy Severe ANAPHYLAXIS Verified 05/06/22 20:47 codeine [Codeine] Allergy Unknown RASH Verified 05/06/22 20:47 Penicillins Allergy Unknown RASH Verified 05/06/22 20:47 prednisone [Prednisone] Allergy Unknown RASH Verified 05/06/22 20:47 Sulfa (Sulfonamide Allergy Unknown RASH Verified 05/06/22 20:47 Antibiotics) [Sulfa (Sulfonamides)] azithromycin [AZITHROMYCIN] AdvReac Severe RASH Verified 05/06/22 20:47 ziprasidone [From Geodon] AdvReac Intermediate dysuria, Verified 05/06/22 20:47 rash Review of Systems Review of Systems: Yes all other systems are reviewed and are negative ENT: Reports system reviewed and no additional complaints, except as documented Cardiovascular: Cardiovascular: Reports no additional cardiovascular complaints Respiratory: Respiratory: Reports no additional respiratory complaints Neurologic: Reports system reviewed and no additional complaints, except as documented Psychiatric: Psychiatric: Reports depression PMFSH Past Medical History Medical History Acetaminophen overdose Borderline personality disorder Bronchitis Depression Diabetes type 2, controlled Full body hives GERD (gastroesophageal reflux disease) History of attempted suicide History of non-suicidal self-harm Hyperlipidemia Hypomagnesemia Major depression MDD (major depressive disorder), recurrent episode, severe Mood disorder Overdose PTSD (post-traumatic stress disorder) Suicide attempt Suicide attempt by acetaminophen overdose Social History Social History Household Members: Other Household Members Other[facility] Housing: Other Housing Other:: [facility] Do you presently have visiting nurse or other home services: No Unable to assess alcohol history related to: Unknown Alcohol intake: former Patient Tobacco Use Status: Current everyday Tobacco user Tobacco use type: Cigarette Cigarette Packs Per Day: 1 Cigarettes Per Day: 16 Years Smoked: 20 e-Cigarette/Vaping Use: Never Used Substance Use Type: Marijuana Advance Directives: No Advance Directives Information Provided: No service: No Current occupational status: unemployed and disabled Sexual orientation: Don't Know Physical Exam Vital Signs: Vital Signs: Last Vital Signs Temp 97.0 F 08/21/22 16:36 Pulse 84 08/21/22 16:36 Resp 18 08/21/22 16:36 BP 132/85 08/21/22 16:36 Pulse Ox 96 08/21/22 16:36 O2 Del Method 08/21/22 16:36 BMI result Body Mass Index 42.9 Const: General: cooperative Nutritional Appearance: average body habitus Orientation/consciousness: patient oriented x3 Limitations: no limitations HEENT: Head: Yes normal to inspection General nose exam: Normal external nose present Face and sinus: Yes normal facial exam Mouth: Normal oral and palatal mucosa present Throat: Yes posterior oropharynx normal Neck: Neck: Yes normal visual inspection and Yes full ROM Chest: Chest palpation & inspection: normal inspection of the chest Resp: Effort & Inspection: normal respiratory effort and able to speak in complete sentences Cardio: Jugular venous distension: no JVD Rate: regular rate Rhythm: regular rhythm GI: Inspection: Yes normal to inspection Palpation (GI): Soft to palpation, not firm, nontender and no guarding Auscultation: normal bowel sounds Skin: General skin exam: no rashes or lesions noted and elasticity normal Lesions: no lesions Rashes: no rashes Neuro: General: patient oriented x3 Cranial nerves: Yes CN's II-XII intact bilaterally Psych: Mental Status: mental status grossly normal Affect: Labile affect present and Anxious affect present Attitude: cooperative Course Reevaluation(s) Reevaluation #1: signed off to Dr Martinez Medications Administered Discontinued Medications Generic Name Dose Route Start Last Admin Trade Name Elmer PRN Reason Stop Dose Admin Lorazepam 1 mg 08/21/22 16:52 08/21/22 17:28 Lorazepam 1 Mg Tablet PO 08/21/22 16:53 1 mg ONCE ONE Administration MDM - Psych Lab Data Labs: Lab Results 08/21/22 08/21/22 08/21/22 Range/Units 17:12 17:14 17:14 Urine Color Yellow Urine Appearance Hazy Urine pH 5.5 (5.0-9.0) Ur Specific [place] 1.010 (1.005-1.025) Urine Protein Negative (Neg-Trace) mg/dL Urine Glucose (UA) Negative (Negative) mg/dL Urine Ketones Negative (Negative) mg/dL Urine Blood Large (3+) H (Negative) Urine Nitrite Negative (Negative) Ur Leukocyte Esterase Trace H (Negative) Urine RBC >20 H (0-2) /HPF Urine WBC 0-5 (0-5) /HPF Ur Squamous Epith Cells 0-2 (0-2) /HPF Urine Bacteria None Seen (None Seen) Hyaline Casts 0-2 (0-2) /LPF Urine Test (NEGATIVE) Urine Opiates Screen Not Detected (Not Detect) Urine Fentanyl Screen POSITIVE H (Not Detect) Ur Barbiturates Screen Not Detected (Not Detect) Ur Phencyclidine Scrn Not Detected (Not Detect) Ur Amphetamines Screen Not Detected (Not Detect) U Benzodiazepines Scrn Not Detected (Not Detect) Urine Cocaine Screen Not Detected (Not Detect) U Marijuana (THC) Screen Not Detected (Not Detect) COVID-19 (NICK) Negative (Negative) COVID-19 [place] See Note 08/21/22 Range/Units 17:14 Urine Color Urine Appearance Urine pH (5.0-9.0) Ur Specific [place] (1.005-1.025) Urine Protein (Neg-Trace) mg/dL Urine Glucose (UA) (Negative) mg/dL Urine Ketones (Negative) mg/dL Urine Blood (Negative) Urine Nitrite (Negative) Ur Leukocyte Esterase (Negative) Urine RBC (0-2) /HPF Urine WBC (0-5) /HPF Ur Squamous Epith Cells (0-2) /HPF Urine Bacteria (None Seen) Hyaline Casts (0-2) /LPF Urine Test NEGATIVE (NEGATIVE) Urine Opiates Screen (Not Detect) Urine Fentanyl Screen (Not Detect) Ur Barbiturates Screen (Not Detect) Ur Phencyclidine Scrn (Not Detect) Ur Amphetamines Screen (Not Detect) U Benzodiazepines Scrn (Not Detect) Urine Cocaine Screen (Not Detect) U Marijuana (THC) Screen (Not Detect) COVID-19 (NICK) (Negative) COVID-19 Clin Com Discharge Plan Discharge Clinical Impression: Depression Prescriptions: No Action metformin 500 mg tablet 1 tab PO BID atorvastatin 10 mg tablet 1 tab PO DAILY verapamil 240 mg tablet extended release 240 mg PO BEDTIME montelukast 10 mg tablet 1 tab PO BEDTIME fluticasone propionate [Flovent HFA] 110 mcg/actuation HFA aerosol inhaler 2 puff inhalation BID albuterol sulfate [Ventolin HFA] 90 mcg/actuation HFA aerosol inhaler 2 puff inhalation Q4H PRN (Reason: Shortness Of Breath) trazodone 150 mg tablet 150 mg PO BEDTIME benztropine 1 mg tablet 1 mg PO BID hydroxyzine HCl 50 mg tablet 1 tab PO DAILY chlorpromazine 25 mg tablet 1 tab PO TID nicotine (polacrilex) 4 mg gum 1 ea PO Q2H PRN (Reason: Smoking Cessation) lisinopril 5 mg tablet 1 tab PO DAILY mirtazapine 7.5 mg tablet 1 tab PO BEDTIME fluoxetine 20 mg capsule 60 mg PO DAILY prazosin 1 mg Capsule 4 mg PO BEDTIME 30 Days Qty: 120 0RF Protocol: Hold for SBP< HOLD for SBP < : 90 ondansetron 4 mg tablet,disintegrating 4 mg PO Q6-8H PRN (Reason: nausea and vomiting) Qty: 14 0RF fluphenazine HCl 5 mg tablet 1 tab PO BEDTIME
[2022-08-21 17:26] LABS: UPreg QC Valid YES; Urine Pregnancy NEGATIVE (NEGATIVE)
[2022-08-21] MEDS: LORazepam 1 MG TABLET PO (17:28)
[2022-08-21 17:30] LABS: Bacteria Urine None Seen (None Seen); Hyaline Casts Urine 0-2 /LPF (0-2); RBC Urine >20 /HPF (0-2); Squamous Epithelial Cell Urine 0-2 /HPF (0-2); WBC Urine 0-5 /HPF (0-5)
[2022-08-21 17:33] LABS: COVID-19 Test Negative (Negative); IDNOW Serial# 16C4AD1C
[2022-08-21 17:34] LABS: Amphetamine Screen Urine Not Detected (Not Detect); Appearance Urine Hazy; Barbiturates, Urine Not Detected (Not Detect); Benzodiazepines Screen Urine Not Detected (Not Detect); Cannabinoid Screen Urine Not Detected (Not Detect); Cocaine Screen Urine Not Detected (Not Detect); Color Urine Yellow; Fentanyl, urine POSITIVE (Not Detect); Glucose Urine UA Negative (Negative); Leukocyte Esterase Urine Trace (Negative); Nitrite Urine Negative (Negative); Opiate Screen Urine Not Detected (Not Detect); PH 5.5 (5.0-9.0); Phencyclidine Screen Urine Not Detected (Not Detect); UMIC TRIGGER UACC YES; Urine Blood Large (3+) (Negative); Urine Ketones Negative (Negative); Urine Protein Negative (Neg-Trace)
--- NOTE | 2022-08-21 19:11 | PC.NURSE ---
Addendum entered by Daria Ro RN 08/22/22 06:44: report given to WALKER Mann Original Note: report received from WALKER Mas pt appear asleep no signs of acute distress notice breathing equally unlabored close monitoring maintained
[2022-08-21 20:00] VITALS: RESP 16
[2022-08-21 22:00] VITALS: RESP 20
--- NOTE | 2022-08-22 07:39 | PC.NURSE ---
patient awake ambulating pod ad yanci expresses euthymically id like to go home, i messed up yesterday conveyed this info to care team. patient appears in no distress.
[2022-08-22 07:44] VITALS: BP 153/94; PULSE 82; RESP 16; TEMP 36.3; O2SAT 95
--- NOTE | 2022-08-22 13:17 | MHC.CARE ---
929 Patient was brought to the ED yesterday by ambulance with the report of auditory hallucinations, self harm and suicidal ideation, she did not act on these urges. Today patient stated that she felt good better, not having suicidal thoughts. She explained that yesterday she called the police non-emergency number and a clinician came out to the [facility] twice but patient continued to feel unsafe and called 911. She willingly reviewed of her known triggers, coping skills and available supports. She was bright and engaged, future oriented looking forward to running errands with her friend later today. Patient denied self harm or suicidal ideation, plan or intention and does not appear to be in crisis.Disposition for discharge home discussed with ED provider, Dr. Eagle
--- NOTE | 2022-08-22 20:35 | MHC.CARE ---
Care Team had a telephonic encounter with Vini Sheridan and he stated pt is sleeping. He mentioned she has been doing fine. Purpose of call was to follow up with pt.
== END 2022-08-22 09:50 | disposition home or self-care (01) ==
PROVIDERS: Emergency Provider Emergency Medicine; PCP Nurse Practitioner Family
DX: F32.A Depression, unspecified (principal); R45.851 Suicidal ideations; F41.9 Anxiety disorder, unspecified; R44.0 Auditory hallucinations; F60.3 Borderline personality disorder; E11.9 Type 2 diabetes mellitus without complications; E78.5 Hyperlipidemia, unspecified; F43.10 Post-traumatic stress disorder, unspecified; Z91.52 Personal history of nonsuicidal self-harm; F17.200 Nicotine dependence, unspecified, uncomplicated; Z79.02 Long term (current) use of antithrombotics/antiplatelets; Z79.84 Long term (current) use of oral hypoglycemic drugs; Z79.899 Other long term (current) drug therapy; Z20.822 Contact with and (suspected) exposure to COVID-19
CPT/HCPCS: 80307; 81001; 81025; 87635; 99284

== ENCOUNTER 2022-08-26 18:48 | Emergency (ER) | payer MEDICARE, MEDICAID, SELFPAY ==
[2022-08-26 19:14] VITALS: BMI 34.9
[2022-08-26 19:23] VITALS: BP 151/71; PULSE 93; RESP 17; TEMP 36.6; O2SAT 96
[2022-08-26 19:48] LABS: COVID-19 Test Negative (Negative)
[2022-08-26 20:10] LABS: MANUAL DIFF FLAG NO
[2022-08-26 20:13] LABS: Basophils Percent Auto 0.5 % (0-2); Eosinophils Absolute Auto 0.4 X10*3/uL (0.0-0.4); Eosinophils Percent Auto 5.4 % (0-4); Hematocrit 32.4 % (37.0-47.0); Hemoglobin 10.1 g/dl (12.0-16.0); Imm Gran Abs Auto 0.02 X10*3/uL (0.00-0.03); Imm Gran Pct Auto 0.2 % (0.0-0.4); Lymphocytes Absolute Auto 2.2 X10*3/uL (1.2-4.9); Lymphocytes Percent Auto 26.8 % (20-40); Mean Corpuscular HGB Conc 31.2 g/dl (31.0-35.0); Mean Corpuscular Hemoglobin 26.9 pg (27.0-33.0); Mean Corpuscular Volume 86.2 fL (80.0-98.0); Mean Platelet Volume 9.9 fL (9.4-12.3); Monocytes Absolute Auto 0.7 X10*3/uL (0.1-1.2); Monocytes Percent Auto 8.5 % (2-11); Neutrophils Absolute Auto 4.8 x10*3/uL (2.0-8.3); Neutrophils Percent Auto 58.6 % (45-73); Platelet Count 253 X10*3/uL (160-400); Red Blood Count 3.76 X10*6/uL (4.20-5.50); Red Cell Distribution Width 14.1 % (11.0-16.0); White Blood Count 8.2 X10*3/uL (4.8-10.8)
[2022-08-26 20:24] LABS: Ethanol < 10 mg/dL
[2022-08-26 20:28] LABS: Acetaminophen LAB < 1 mcg/mL (<30); Alanine Aminotransferase 16 U/L (0-31); Albumin Level 4.3 g/dL (3.5-5.0); Alkaline Phosphatase 131 U/L (39-117); Anion Gap 17 (12-20); Aspartate Amino Transferase 16 U/L (5-31); Bilirubin Total 0.2 mg/dL (0.0-1.0); Blood Urea Nitrogen 8 mg/dL (9-16); Calcium 8.8 mg/dL (8.4-10.2); Carbon Dioxide 21 mmol/L (22-29); Chloride 106 mmol/L (96-108); Creatinine Clr Calc Pharmacy 107.8; Estimated Glomerular Filt Rate > 60; Glucose Random 111 mg/dL (60-115); Magnesium 1.6 mg/dL (1.6-2.6); Potassium 3.7 mmol/L (3.3-5.1); Salicylate < 5.0 mg/dL (15-30); Sodium 140 mmol/L (135-145)
--- NOTE | 2022-08-26 20:30 | ED_ITS ---
HPI - Psych General Chief Complaint: Psychiatric Symptoms <TIMI Cruz - Last Filed: 08/26/22 20:54> Stated Complaint: suicidal,,hearing voices <TIMI Cruz - Last Filed: 08/26/22 20:54> Time Seen by Provider: 08/26/22 19:10 <TIMI Cruz - Last Filed: 08/26/22 20:54> Source: patient <TIMI Cruz - Last Filed: 08/26/22 20:54> Mode of arrival: ambulatory <TIMI Cruz Last Filed: 08/26/22 20:54> Limitations: no limitations <TIMI Cruz Last Filed: 08/26/22 20:54> History of Present Illness HPI Narrative: 46-year-old female past medical history significant personality depression bipolar 2 with melancholic peatures, PTSD, DM, GERD presents today with vague suicidal thoughts w/ plan to overdose, auditory hallucinations times a few hours.? Patient tells me that she is hearing voices telling her to hurt herself however she does not feel like doing it. Patient tells me she is really missing her mother and wants to be with her. 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 Patient denies drugs, alcohol and tobacco. Denies medical complaints at this time. Denies homicidal ideation. <TIMI Cruz Last Filed: 08/26/22 20:54> Related Data Home Medications: Home Medications Medication Instructions Recorded Confirmed atorvastatin 10 mg tablet 1 tab PO DAILY 05/29/21 08/27/22 fluticasone propionate 110 2 puff inhalation BID 05/29/21 08/27/22 mcg/actuation HFA aerosol inhaler (Flovent HFA) metformin 500 mg tablet 1 tab PO BID 05/29/21 08/27/22 montelukast 10 mg tablet 1 tab PO BEDTIME 05/29/21 08/27/22 verapamil 240 mg tablet,extended 240 mg PO BEDTIME 05/29/21 08/27/22 release albuterol sulfate 90 mcg/actuation 2 puff inhalation Q4H PRN 09/01/21 11/13/22 aerosol inhaler (Ventolin HFA) Shortness Of Breath trazodone 150 mg tablet 150 mg PO BEDTIME 11/05/21 08/27/22 benztropine 1 mg tablet 1 mg PO BID 12/26/21 08/27/22 fluphenazine HCl 5 mg tablet 1 tab PO BEDTIME 03/19/22 08/27/22 chlorpromazine 25 mg tablet 1 tab PO TID 06/17/22 08/27/22 hydroxyzine HCl 50 mg tablet 1 tab PO DAILY 06/17/22 08/27/22 fluoxetine 20 mg capsule 60 mg PO DAILY 07/30/22 08/27/22 lisinopril 5 mg tablet 1 tab PO DAILY 07/30/22 08/27/22 mirtazapine 7.5 mg tablet 1 tab PO BEDTIME 07/30/22 08/27/22 nicotine (polacrilex) 4 mg gum 1 ea PO Q2H PRN Smoking Cessation 07/30/22 08/27/22 senna 8.6 mg PO BEDTIME 08/26/22 08/27/22 Previous Rx's Medication Instructions Recorded prazosin 1 mg capsule 4 mg PO BEDTIME 30 days #120 caps 10/18/21 ondansetron 4 mg disintegrating 4 mg PO Q6-8H PRN nausea and 02/04/22 tablet vomiting #14 tabs <TIMI Cruz - Last Filed: 08/26/22 20:54> Allergies/Adverse Reactions: Allergies Allergy/AdvReac Type Severity Reaction Status Date / Time Fish Containing Products Allergy Severe ANAPHYLAXIS Verified 05/06/22 20:47 codeine [Codeine] Allergy Unknown RASH Verified 05/06/22 20:47 Penicillins Allergy Unknown RASH Verified 05/06/22 20:47 prednisone [Prednisone] Allergy Unknown RASH Verified 05/06/22 20:47 Sulfa (Sulfonamide Allergy Unknown RASH Verified 05/06/22 20:47 Antibiotics) [Sulfa (Sulfonamides)] azithromycin [AZITHROMYCIN] AdvReac Severe RASH Verified 05/06/22 20:47 ziprasidone [From Geodon] AdvReac Intermediate dysuria, Verified 05/06/22 20:47 rash <TIMI Cruz - Last Filed: 08/26/22 20:54> Review of Systems 2 Review of Systems: Constitutional : No Fever, No Chills ENT/Mouth : No Ear Pain, No Nasal Congestion, No sore throat Eyes: No Eye Pain, No Swelling, No Redness Cardiovascular : No Chest Pain, No SOB Respiratory : No Cough, No Sputum, No Dyspnea Gastrointestinal : No Nausea, No Vomiting, No Diarrhea, No Hematochezia, No Melena Genitourinary : No Dysuria, No Urinary Frequency, No Hematuria Musculoskeletal : No Myalgias Skin : No Skin Lesions, No rash Neuro : No Weakness, No Numbness, No Paresthesias, No Dizziness, No Headache Psych : positive Anxiety, positive Depression, positive SI, No HI All other systems reviewed and are negative <TIMI Cruz - Last Filed: 08/26/22 20:54> Yes all other systems are reviewed and are negative <TIMI Cruz - Last Filed: 08/26/22 20:54> PMFSH Past Medical History Attestation statement: The following information was validated with the patient. <TIMI Cruz - Last Filed: 08/26/22 20:54> Source: old records reviewed and nursing notes reviewed <TIMI Cruz - Last Filed: 08/26/22 20:54> Medical History: Medical History Acetaminophen overdose Borderline personality disorder Bronchitis Depression Diabetes type 2, controlled Full body hives GERD (gastroesophageal reflux disease) History of attempted suicide History of non-suicidal self-harm Hyperlipidemia Hypomagnesemia Major depression MDD (major depressive disorder), recurrent episode, severe Mood disorder Overdose PTSD (post-traumatic stress disorder) Suicide attempt Suicide attempt by acetaminophen overdose <TIMI Cruz - Last Filed: 08/26/22 20:54> Social History Social History: Social History Household Members: Other Household Members Other:: senior living Housing: Other Housing Other:: senior living Do you presently have visiting nurse or other home services: No Unable to assess alcohol history related to: Unknown Alcohol intake: former Patient Tobacco Use Status: Current everyday Tobacco user Tobacco use type: Cigarette Cigarette Packs Per Day: 1 Cigarettes Per Day: 16 Years Smoked: 20 e-Cigarette/Vaping Use: Never Used Substance Use Type: Marijuana Advance Directives: No Advance Directives Information Provided: No service: No Current occupational status: unemployed and disabled Sexual orientation: Don't Know <TIMI Cruz - Last Filed: 08/26/22 20:54> Physical Exam Vital Signs: Vital Signs: Last Vital Signs Temp 98.2 F 08/27/22 06:08 Pulse 74 08/27/22 06:08 Resp 17 08/27/22 06:08 BP 129/77 08/27/22 06:08 Pulse Ox 95 08/27/22 06:08 O2 Del Method 08/27/22 06:08 BMI result Body Mass Index 34.9 vss <TIMI Cruz - Last Filed: 08/26/22 20:54> Vital Signs: Last Vital Signs Temp 98.2 F 08/27/22 06:08 Pulse 74 08/27/22 06:08 Resp 17 08/27/22 06:08 BP 129/77 08/27/22 06:08 Pulse Ox 95 08/27/22 06:08 O2 Del Method 08/27/22 06:08 BMI result Body Mass Index 34.9 <Sy Allison MD - Last Filed: 08/27/22 09:26> Head:? Normocephalic, atraumatic, no step-offs or deformities Eyes: Pupils equal, round and reactive to light.? ENT: Pharynx normal.? Neck: Normal inspection.? Neck supple.? CVS: Normal heart rate and rhythm.? Pulses normal.? Respiratory: No respiratory distress.? Breath sounds normal.? Abdomen: Soft and nontender.? Skin: Skin warm and dry.? Normal skin color.? Normal skin turgor.?Old self inflicted wounds to b/l UE, LE and abdomen Extremities: No lower extremity edema.? No calf ttp.? 5/5 strength to bilateral upper and lower extremities Back:? No midline tenderness, no C-spine tenderness, full range of motion, no CVA tenderness bilaterally Neuro: Oriented X 3.? No motor deficit.? No sensory deficit. CN 2-12 intact <TIMI Cruz - Last Filed: 08/26/22 20:54> Course Reevaluation(s) Reevaluation #1: CBC appears to be within normal limits. Chemistry with no acute electrolyte abnormalities requiring intervention. Patient's alk-phos slightly higher than usual however no complaints of abdominal pain nausea, vomiting, no abdominal tenderness on exam. Salicylates, acetaminophen, ethanol negative. COVID negative. Urine and urine toxicology pending. <TIMI Cruz - Last Filed: 08/26/22 20:54> Time: 20:38 <TIMI Cruz - Last Filed: 08/26/22 20:54> Reevaluation #2: Patient's urine with leukocyte esterases, trace bacteria I suspect that this is contamination patient without urinary symptoms. Urine toxicology negati ve. At this time patient will be placed into physician observation to allow more time to be evaluated by the behavioral health team. At time observation was started patient common cooperative no acute distress. Will continue to monitor. <TIMI Cruz - Last Filed: 08/26/22 20:54> Time: 20:52 <TIMI Cruz - Last Filed: 08/26/22 20:54> Reevaluation #3: Patient feels better, awake, alert, oriented, no SI or HI no hallucination at the moment, feel safe to be discharged home. Please refer to care team note to be discharged. <Sy Allison MD - Last Filed: 08/27/22 09:26> Time: 09:24 <Sy Allison MD - Last Filed: 08/27/22 09:26> Medications Administered Generic Name Dose Route Start Last Admin Trade Name Freq PRN Reason Stop Dose Admin Benztropine Mesylate 1 mg 08/26/22 21:00 08/27/22 08:08 Benztropine Mesylate 1 Mg Tablet PO 1 mg BID YULY Administration Fluphenazine HCl 5 mg 08/26/22 21:00 08/26/22 21:12 Fluphenazine Hcl 5 Mg Tablet PO 5 mg BEDTIME YULY Administration Metformin HCl 500 mg 08/26/22 21:00 08/27/22 08:08 Metformin Hcl 500 Mg Tablet PO 500 mg BID YULY Administration Mirtazapine 7.5 mg 08/26/22 21:00 08/26/22 21:12 Mirtazapine 7.5 Mg Tablet PO 7.5 mg BEDTIME YULY Administration Prazosin HCl 4 mg 08/26/22 21:00 08/26/22 21:11 Prazosin Hcl 1 Mg Capsule PO 4 mg BEDTIME YULY Administration Protocol Senna 8.6 mg 08/26/22 21:00 08/26/22 21:12 Sennosides 8.6 Mg Tablet PO 8.6 mg BEDTIME YULY Administration Trazodone HCl 150 mg 08/26/22 21:00 08/26/22 21:12 Trazodone Hcl 50 Mg Tablet PO 150 mg BEDTIME YULY Administration <TIMI Cruz - Last Filed: 08/26/22 20:54> Medications Administered Generic Name Dose Route Start Last Admin Trade Name Freq PRN Reason Stop Dose Admin Benztropine Mesylate 1 mg 08/26/22 21:00 08/27/22 08:08 Benztropine Mesylate 1 Mg Tablet PO 1 mg BID YULY Administration Fluphenazine HCl 5 mg 08/26/22 21:00 08/26/22 21:12 Fluphenazine Hcl 5 Mg Tablet PO 5 mg BEDTIME YULY Administration Metformin HCl 500 mg 08/26/22 21:00 08/27/22 08:08 Metformin Hcl 500 Mg Tablet PO 500 mg BID YULY Administration Mirtazapine 7.5 mg 08/26/22 21:00 08/26/22 21:12 Mirtazapine 7.5 Mg Tablet PO 7.5 mg BEDTIME YULY Administration Prazosin HCl 4 mg 08/26/22 21:00 08/26/22 21:11 Prazosin Hcl 1 Mg Capsule PO 4 mg BEDTIME YULY Administration Protocol Senna 8.6 mg 08/26/22 21:00 08/26/22 21:12 Sennosides 8.6 Mg Tablet PO 8.6 mg BEDTIME YULY Administration Trazodone HCl 150 mg 08/26/22 21:00 08/26/22 21:12 Trazodone Hcl 50 Mg Tablet PO 150 mg BEDTIME YULY Administration <Sy Allison MD - Last Filed: 08/27/22 09:26> MDM - Psych MDM Narrative Medical decision making narrative: 2028 46 y/o f presenting with anxiety, vague si w/ plan to OD and auditory romano llucinations. No medical complaints at this time.? Reports she is missing her mother more than usual. PE benign. Plan to observe the patient in behavioral health unit, crisis evaluation. Suspect recurrent anxiety, less likely organic cause of the patient's symptoms such as metabolic derangement. Will medically clear <TIMI Cruz - Last Filed: 08/26/22 20:54> Medical Records Attestation: I reviewed the patient's medical records. <TIMI Cruz - Last Filed: 08/26/22 20:54> Lab Data Attestation: I reviewed the patient's lab results. <TIMI Cruz - Last Filed: 08/26/22 20:54> Result diagrams: : 08/26/22 20:04 08/26/22 20:04 <TIMI Cruz - Last Filed: 08/26/22 20:54> Labs: Lab Results 08/26/22 08/26/22 08/26/22 Range/Units 19:24 20:04 20:04 WBC 8.2 (4.8-10.8) X10*3/uL RBC 3.76 L (4.20-5.50) X10*6/uL Hgb 10.1 L (12.0-16.0) g/dl Hct 32.4 L (37.0-47.0) % MCV 86.2 (80.0-98.0) fL MCH 26.9 L (27.0-33.0) pg MCHC 31.2 (31.0-35.0) g/dl RDW 14.1 (11.0-16.0) % Plt Count 253 (160-400) X10*3/uL MPV 9.9 (9.4-12.3) fL Immature Gran % (Auto) 0.2 (0.0-0.4) % Neut % (Auto) 58.6 (45-73) % Lymph % (Auto) 26.8 (20-40) % [place] % (Auto) 8.5 (2-11) % Eos % (Auto) 5.4 H (0-4) % Baso % (Auto) 0.5 (0-2) % Lymph # (Auto) 2.2 (1.2-4.9) X10*3/uL [place] # (Auto) 0.7 (0.1-1.2) X10*3/uL Eos # (Auto) 0.4 (0.0-0.4) X10*3/uL Baso # (Auto) 0.0 (0.0-0.2) X10*3/uL Abs Immat Gran (auto) 0.02 (0.00-0.03) X10*3/uL Absolute Neuts (auto) 4.8 (2.0-8.3) x10*3/uL Absolute Nucleated RBC 0.000 (0.0-0.012) X10*3/uL Nucleated RBC % (auto) 0.0 (0.0-0.2) /100WBC Sodium 140 (135-145) mmol/L Potassium 3.7 (3.3-5.1) mmol/L Chloride 106 (96-108) mmol/L Carbon Dioxide 21 L (22-29) mmol/L Anion Gap 17 (12-20) BUN 8 L D (9-16) mg/dL Creatinine 0.76 (0.5-1.4) mg/dL Estim Creat Clear Calc 107.8 Estimated GFR > 60 Random Glucose 111 (60-115) mg/dL Calcium 8.8 (8.4-10.2) mg/dL Magnesium 1.6 (1.6-2.6) mg/dL Total Bilirubin 0.2 (0.0-1.0) mg/dL AST 16 (5-31) U/L ALT 16 (0-31) U/L Alkaline Phosphatase 131 H D (39-117) U/L Total Protein 7.0 (6.5-8.0) g/dL Albumin 4.3 (3.5-5.0) g/dL Urine Color Urine Appearance Urine pH (5.0-9.0) Ur Specific [place] (1.005-1.025) Urine Protein (Neg-Trace) mg/dL Urine Glucose (UA) (Negative) mg/dL Urine Ketones (Negative) mg/dL Urine Blood (Negative) Urine Nitrite (Negative) Ur Leukocyte Esterase (Negative) Urine RBC (0-2) /HPF Urine WBC (0-5) /HPF Ur Squamous Epith Cells (0-2) /HPF Urine Bacteria (None Seen) Hyaline Casts (0-2) /LPF Salicylates < 5.0 L (15-30) mg/dL Urine Opiates Screen (Not Detect) Urine Fentanyl Screen (Not Detect) Acetaminophen < 1 (<30) mcg/mL Ur Barbiturates Screen (Not Detect) Ur Phencyclidine Scrn (Not Detect) Ur Amphetamines Screen (Not Detect) U Benzodiazepines Scrn (Not Detect) Urine Cocaine Screen (Not Detect) U Marijuana (THC) Screen (Not Detect) Ethyl Alcohol mg/dL COVID-19 (NICK) Negative (Negative) COVID-19 Clin Com See Note 08/26/22 08/26/22 08/26/22 Range/Units 20:04 20:25 20:25 WBC (4.8-10.8) X10*3/uL RBC (4.20-5.50) X10*6/uL Hgb (12.0-16.0) g/dl Hct (37.0-47.0) % MCV (80.0-98.0) fL MCH (27.0-33.0) pg MCHC (31.0-35.0) g/dl RDW (11.0-16.0) % Plt Count (160-400) X10*3/uL MPV (9.4-12.3) fL Immature Gran % (Auto) (0.0-0.4) % Neut % (Auto) (45-73) % Lymph % (Auto) (20-40) % [place] % (Auto) (2-11) % Eos % (Auto) (0-4) % Baso % (Auto) (0-2) % Lymph # (Auto) (1.2-4.9) X10*3/uL [place] # (Auto) (0.1-1.2) X10*3/uL Eos # (Auto) (0.0-0.4) X10*3/uL Baso # (Auto) (0.0-0.2) X10*3/uL Abs Immat Gran (auto) (0.00-0.03) X10*3/uL Absolute Neuts (auto) (2.0-8.3) x10*3/uL Absolute Nucleated RBC (0.0-0.012) X10*3/uL Nucleated RBC % (auto) (0.0-0.2) /100WBC Sodium (135-145) mmol/L Potassium (3.3-5.1) mmol/L Chloride (96-108) mmol/L Carbon Dioxide (22-29) mmol/L Anion Gap (12-20) BUN (9-16) mg/dL Creatinine (0.5-1.4) mg/dL Estim Creat Clear Calc Estimated GFR Random Glucose (60-115) mg/dL Calcium (8.4-10.2) mg/dL Magnesium (1.6-2.6) mg/dL Total Bilirubin (0.0-1.0) mg/dL AST (5-31) U/L ALT (0-31) U/L Alkaline Phosphatase (39-117) U/L Total Protein (6.5-8.0) g/dL Albumin (3.5-5.0) g/dL Urine Color Yellow Urine Appearance Clear Urine pH 5.5 (5.0-9.0) Ur Specific [place] <= 1.005 (1.005-1.025) Urine Protein Negative (Neg-Trace) mg/dL Urine Glucose (UA) Negative (Negative) mg/dL Urine Ketones Negative (Negative) mg/dL Urine Blood Negative (Negative) Urine Nitrite Negative (Negative) Ur Leukocyte Esterase Trace H (Negative) Urine RBC 0-2 (0-2) /HPF Urine WBC 0-5 (0-5) /HPF Ur Squamous Epith Cells 0-2 (0-2) /HPF Urine Bacteria Trace (None Seen) Hyaline Casts 0-2 (0-2) /LPF Salicylates (15-30) mg/dL Urine Opiates Screen Not Detected (Not Detect) Urine Fentanyl Screen Not Detected (Not Detect) Acetaminophen (<30) mcg/mL Ur Barbiturates Screen Not Detected (Not Detect) Ur Phencyclidine Scrn Not Detected (Not Detect) Ur Amphetamines Screen Not Detected (Not Detect) U Benzodiazepines Scrn Not Detected (Not Detect) Urine Cocaine Screen Not Detected (Not Detect) U Marijuana (THC) Screen Not Detected (Not Detect) Ethyl Alcohol < 10 mg/dL COVID-19 (NICK) (Negative) COVID-19 Clin Com <TIMI Cruz - Last Filed: 08/26/22 20:54> Lab Results 08/26/22 08/26/22 08/26/22 Range/Units 19:24 20:04 20:04 WBC 8.2 (4.8-10.8) X10*3/uL RBC 3.76 L (4.20-5.50) X10*6/uL Hgb 10.1 L (12.0-16.0) g/dl Hct 32.4 L (37.0-47.0) % MCV 86.2 (80.0-98.0) fL MCH 26.9 L (27.0-33.0) pg MCHC 31.2 (31.0-35.0) g/dl RDW 14.1 (11.0-16.0) % Plt Count 253 (160-400) X10*3/uL MPV 9.9 (9.4-12.3) fL Immature Gran % (Auto) 0.2 (0.0-0.4) % Neut % (Auto) 58.6 (45-73) % Lymph % (Auto) 26.8 (20-40) % [place] % (Auto) 8.5 (2-11) % Eos % (Auto) 5.4 H (0-4) % Baso % (Auto) 0.5 (0-2) % Lymph # (Auto) 2.2 (1.2-4.9) X10*3/uL [place] # (Auto) 0.7 (0.1-1.2) X10*3/uL Eos # (Auto) 0.4 (0.0-0.4) X10*3/uL Baso # (Auto) 0.0 (0.0-0.2) X10*3/uL Abs Immat Gran (auto) 0.02 (0.00-0.03) X10*3/uL Absolute Neuts (auto) 4.8 (2.0-8.3) x10*3/uL Absolute Nucleated RBC 0.000 (0.0-0.012) X10*3/uL Nucleated RBC % (auto) 0.0 (0.0-0.2) /100WBC Sodium 140 (135-145) mmol/L Potassium 3.7 (3.3-5.1) mmol/L Chloride 106 (96-108) mmol/L Carbon Dioxide 21 L (22-29) mmol/L Anion Gap 17 (12-20) BUN 8 L D (9-16) mg/dL Creatinine 0.76 (0.5-1.4) mg/dL Estim Creat Clear Calc 107.8 Estimated GFR > 60 Random Glucose 111 (60-115) mg/dL Calcium 8.8 (8.4-10.2) mg/dL Magnesium 1.6 (1.6-2.6) mg/dL Total Bilirubin 0.2 (0.0-1.0) mg/dL AST 16 (5-31) U/L ALT 16 (0-31) U/L Alkaline Phosphatase 131 H D (39-117) U/L Total Protein 7.0 (6.5-8.0) g/dL Albumin 4.3 (3.5-5.0) g/dL Urine Color Urine Appearance Urine pH (5.0-9.0) Ur Specific [place] (1.005-1.025) Urine Protein (Neg-Trace) mg/dL Urine Glucose (UA) (Negative) mg/dL Urine Ketones (Negative) mg/dL Urine Blood (Negative) Urine Nitrite (Negative) Ur Leukocyte Esterase (Negative) Urine RBC (0-2) /HPF Urine WBC (0-5) /HPF Ur Squamous Epith Cells (0-2) /HPF Urine Bacteria (None Seen) Hyaline Casts (0-2) /LPF Salicylates < 5.0 L (15-30) mg/dL Urine Opiates Screen (Not Detect) Urine Fentanyl Screen (Not Detect) Acetaminophen < 1 (<30) mcg/mL Ur Barbiturates Screen (Not Detect) Ur Phencyclidine Scrn (Not Detect) Ur Amphetamines Screen (Not Detect) U Benzodiazepines Scrn (Not Detect) Urine Cocaine Screen (Not Detect) U Marijuana (THC) Screen (Not Detect) Ethyl Alcohol mg/dL COVID-19 (NICK) Negative (Negative) COVID-19 Clin Com See Note 08/26/22 08/26/22 08/26/22 Range/Units 20:04 20:25 20:25 WBC (4.8-10.8) X10*3/uL RBC (4.20-5.50) X10*6/uL Hgb (12.0-16.0) g/dl Hct (37.0-47.0) % MCV (80.0-98.0) fL MCH (27.0-33.0) pg MCHC (31.0-35.0) g/dl RDW (11.0-16.0) % Plt Count (160-400) X10*3/uL MPV (9.4-12.3) fL Immature Gran % (Auto) (0.0-0.4) % Neut % (Auto) (45-73) % Lymph % (Auto) (20-40) % [place] % (Auto) (2-11) % Eos % (Auto) (0-4) % Baso % (Auto) (0-2) % Lymph # (Auto) (1.2-4.9) X10*3/uL [place] # (Auto) (0.1-1.2) X10*3/uL Eos # (Auto) (0.0-0.4) X10*3/uL Baso # (Auto) (0.0-0.2) X10*3/uL Abs Immat Gran (auto) (0.00-0.03) X10*3/uL Absolute Neuts (auto) (2.0-8.3) x10*3/uL Absolute Nucleated RBC (0.0-0.012) X10*3/uL Nucleated RBC % (auto) (0.0-0.2) /100WBC Sodium (135-145) mmol/L Potassium (3.3-5.1) mmol/L Chloride (96-108) mmol/L Carbon Dioxide (22-29) mmol/L Anion Gap (12-20) BUN (9-16) mg/dL Creatinine (0.5-1.4) mg/dL Estim Creat Clear Calc Estimated GFR Random Glucose (60-115) mg/dL Calcium (8.4-10.2) mg/dL Magnesium (1.6-2.6) mg/dL Total Bilirubin (0.0-1.0) mg/dL AST (5-31) U/L ALT (0-31) U/L Alkaline Phosphatase (39-117) U/L Total Protein (6.5-8.0) g/dL Albumin (3.5-5.0) g/dL Urine Color Yellow Urine Appearance Clear Urine pH 5.5 (5.0-9.0) Ur Specific [place] <= 1.005 (1.005-1.025) Urine Protein Negative (Neg-Trace) mg/dL Urine Glucose (UA) Negative (Negative) mg/dL Urine Ketones Negative (Negative) mg/dL Urine Blood Negative (Negative) Urine Nitrite Negative (Negative) Ur Leukocyte Esterase Trace H (Negative) Urine RBC 0-2 (0-2) /HPF Urine WBC 0-5 (0-5) /HPF Ur Squamous Epith Cells 0-2 (0-2) /HPF Urine Bacteria Trace (None Seen) Hyaline Casts 0-2 (0-2) /LPF Salicylates (15-30) mg/dL Urine Opiates Screen Not Detected (Not Detect) Urine Fentanyl Screen Not Detected (Not Detect) Acetaminophen (<30) mcg/mL Ur Barbiturates Screen Not Detected (Not Detect) Ur Phencyclidine Scrn Not Detected (Not Detect) Ur Amphetamines Screen Not Detected (Not Detect) U Benzodiazepines Scrn Not Detected (Not Detect) Urine Cocaine Screen Not Detected (Not Detect) U Marijuana (THC) Screen Not Detected (Not Detect) Ethyl Alcohol < 10 mg/dL COVID-19 (NICK) (Negative) COVID-19 Clin Com <Sy Allison MD - Last Filed: 08/27/22 09:26> Critical Care Time Critical Care Time Critical Care Time: No <TIMI Cruz - Last Filed: 08/26/22 20:54> Discharge Plan Discharge Clinical Impression: Acute anxiety, Depression, Suicidal thoughts, Auditory hallucination <TIMI Cruz - Last Filed: 08/26/22 20:54> Patient Disposition: Home, Self-Care <TIMI Cruz - Last Filed: 08/26/22 20:54> Instructions: Depression (ED) <TIMI Cruz - Last Filed: 08/26/22 20:54> Prescriptions: No Action metformin 500 mg tablet 1 tab PO BID atorvastatin 10 mg tablet 1 tab PO DAILY verapamil 240 mg tablet extended release 240 mg PO BEDTIME montelukast 10 mg tablet 1 tab PO BEDTIME fluticasone propionate [Flovent HFA] 110 mcg/actuation HFA aerosol inhaler 2 puff inhalation BID albuterol sulfate [Ventolin HFA] 90 mcg/actuation HFA aerosol inhaler 2 puff inhalation Q4H PRN (Reason: Shortness Of Breath) trazodone 150 mg tablet 150 mg PO BEDTIME benztropine 1 mg tablet 1 mg PO BID hydroxyzine HCl 50 mg tablet 1 tab PO DAILY chlorpromazine 25 mg tablet 1 tab PO TID nicotine (polacrilex) 4 mg gum 1 ea PO Q2H PRN (Reason: Smoking Cessation) lisinopril 5 mg tablet 1 tab PO DAILY mirtazapine 7.5 mg tablet 1 tab PO BEDTIME fluoxetine 20 mg capsule 60 mg PO DAILY senna 8.6 mg PO BEDTIME prazosin 1 mg Capsule 4 mg PO BEDTIME 30 Days Qty: 120 0RF Protocol: Hold for SBP< HOLD for SBP < : 90 ondansetron 4 mg tablet,disintegrating 4 mg PO Q6-8H PRN (Reason: nausea and vomiting) Qty: 14 0RF fluphenazine HCl 5 mg tablet 1 tab PO BEDTIME <TIMI Cruz - Last Filed: 08/26/22 20:54> Referrals: Maribel Marquez NP [Primary Care Provider] - <TIMI Cruz - Last Filed: 08/26/22 20:54>
[2022-08-26 20:33] LABS: Appearance Urine Clear; Color Urine Yellow; Glucose Urine UA Negative (Negative); Leukocyte Esterase Urine Trace (Negative); Nitrite Urine Negative (Negative); PH 5.5 (5.0-9.0); Specific Gravity - Urine <= 1.005 (1.005-1.025); UMIC TRIGGER UACC YES; Urine Blood Negative (Negative); Urine Ketones Negative (Negative); Urine Protein Negative (Neg-Trace)
[2022-08-26 20:43] LABS: Amphetamine Screen Urine Not Detected (Not Detect); Barbiturates, Urine Not Detected (Not Detect); Benzodiazepines Screen Urine Not Detected (Not Detect); Cannabinoid Screen Urine Not Detected (Not Detect); Cocaine Screen Urine Not Detected (Not Detect); Fentanyl, urine Not Detected (Not Detect); Opiate Screen Urine Not Detected (Not Detect); Phencyclidine Screen Urine Not Detected (Not Detect)
[2022-08-26 20:46] LABS: Bacteria Urine Trace (None Seen); Hyaline Casts Urine 0-2 /LPF (0-2); RBC Urine 0-2 /HPF (0-2); Squamous Epithelial Cell Urine 0-2 /HPF (0-2); WBC Urine 0-5 /HPF (0-5)
[2022-08-26] MEDS: Prazosin HCL 1 MG CAPSULE 4 MG PO (21:11)
[2022-08-26] MEDS: metFORMIN HCl 500 MG TABLET PO (21:12)
[2022-08-26] MEDS: traZODone HCL 50 MG TABLET 150 MG PO (21:12)
[2022-08-26] MEDS: Mirtazapine 7.5 MG TABLET PO (21:12)
[2022-08-26] MEDS: Sennosides 8.6 MG TABLET PO (21:12)
[2022-08-26] MEDS: Benztropine Mesylate 1 MG TABLET PO (21:12)
[2022-08-26] MEDS: fluPHENAZine HCl 5 MG TABLET PO (21:12)
--- NOTE | 2022-08-27 04:12 | PC.NURSE ---
Pt sleeping at this time respirations regular.
[2022-08-27 06:08] VITALS: BP 129/77; PULSE 74; RESP 17; TEMP 36.8; O2SAT 95
--- NOTE | 2022-08-27 07:31 | PC.NURSE ---
Report taken from overnight shift. No acute incidents. Plan is for Care team follow this AM. Pt verbalizes feeling better.
[2022-08-27] MEDS: metFORMIN HCl 500 MG TABLET PO (08:08)
[2022-08-27] MEDS: Benztropine Mesylate 1 MG TABLET PO (08:08)
--- NOTE | 2022-08-27 09:54 | MHC.CARE ---
Addendum entered by Jeffrey Marrero 08/27/22 12:40: Case was discussed with WALKER Jimenez, not Zay Original Note: Pt?s Care Plan was reviewed. Yesterday, pt was transported to this facility from the community via ambulance with a complaint of vague suicidal thoughts with a plan to overdose, and command auditory hallucinations for a several hours telling her to hurt herself.? Pt did not endorse an urge to act on those commands.? ?Patient reported she misses her mother and wants to be with her.? She reports increasing life stressors, and has a job now which she enjoys. She reports that the voices were concerning because she had never experienced voices telling her to jump in front of a moving vehicle.? Pt speculates that she is experiencing these sx as it is a holiday and there is no programming or other activities within or without the Jail to keep her occupied.? She reports that she went to the behavioral health [facility] to speak to them and then to the living room, she stated that the voices got better but after she left they worsened.? Pt has been medically cleared and is being assessed by the CARE Team to determine risk. Pt has an extensive hx of inpt hospitalizations, and is known to engage in unsafe behavior when decompensated. Past documented hx of major depressive d/o, PTSD, and Borderline personality d/o. Pt has a hx of self-harm and suicide attempts. Pt is alert and oriented x4 and is assessed for risk by the CARE Team in her room in the Behavioral Health Pod of the ED.? Pt is disheveled in appearance and appears older than her stated age.? She denies SI, , HI and self-harm urges.? She denies visual hallucinations and reports that she is still experiencing auditory hallucination but they are ?Manageable?.? Pt stated that she feels that she is able to be safe.? She states her sleep and appetite have been ?good?.? She reports her mood as ?good?, she demonstrates a broad range of affect.? Insight, judgement, memory, and concentration are fair and appear to be at her baseline.? Pt appears to be at her baseline at this time. The plan is for pt to be discharged to the alf.? CARE Team will secure transportation.? This disposition was discussed with and agreed upon by ED Provider Dr. Allison, CARE Team educational interpreter Ruba MILLER, and pt?s nurse WALKER Collazo. Pt?s alf was notified.
== END 2022-08-27 09:49 | disposition home or self-care (01) ==
PROVIDERS: Physician Assistant; Emergency Provider Student in an Organized Health Care Education/Training Program; PCP Nurse Practitioner Family
DX: R45.851 Suicidal ideations (principal); F31.81 Bipolar II disorder; F41.9 Anxiety disorder, unspecified; R44.0 Auditory hallucinations; F60.3 Borderline personality disorder; E11.9 Type 2 diabetes mellitus without complications; E78.5 Hyperlipidemia, unspecified; F43.10 Post-traumatic stress disorder, unspecified; Z91.52 Personal history of nonsuicidal self-harm; F17.210 Nicotine dependence, cigarettes, uncomplicated; Z79.02 Long term (current) use of antithrombotics/antiplatelets; Z79.84 Long term (current) use of oral hypoglycemic drugs; Z79.899 Other long term (current) drug therapy; Z20.822 Contact with and (suspected) exposure to COVID-19
CPT/HCPCS: 36415; 80053; 80143; 80179; 80307; 81001; 82077; 83735; 85025; 87635; 99284; 99285

== ENCOUNTER 2022-08-28 18:53 | Emergency (ER) | payer MEDICARE, MEDICAID, SELFPAY ==
[2022-08-28 19:01] VITALS: BP 210/100; PULSE 145; O2SAT 97
[2022-08-28 19:32] VITALS: BP 178/103; PULSE 116; RESP 18; TEMP 36.7; O2SAT 97; BMI 36.0
[2022-08-28 19:34] LABS: COVID-19 Test Negative (Negative); IDNOW Serial# 55D5AD1C
--- NOTE | 2022-08-28 19:50 | ED.PSYCH ---
HPI - Psych General Chief Complaint: Psychiatric Symptoms Stated Complaint: crisis Time Seen by Provider: 08/28/22 19:03 Source: patient Mode of arrival: EMS Limitations: no limitations History of Present Illness HPI Narrative: Patient with multiple ED visits with history of bipolar disorder personality disorder depression with suicidal ideation, psychosis comes here for hearing voices telling her to cut herself patient tried to abrade her boys lateral forearms and abdomen similar to that in the past patient went to outpatient crisis will discharge her but patient came to the ER Related Data Home Medications Medication Instructions Recorded Confirmed atorvastatin 10 mg tablet 1 tab PO DAILY 05/29/21 08/27/22 fluticasone propionate 110 2 puff inhalation BID 05/29/21 08/27/22 mcg/actuation HFA aerosol inhaler (Flovent HFA) metformin 500 mg tablet 1 tab PO BID 05/29/21 08/27/22 montelukast 10 mg tablet 1 tab PO BEDTIME 05/29/21 08/27/22 verapamil 240 mg tablet,extended 240 mg PO BEDTIME 05/29/21 08/27/22 release albuterol sulfate 90 mcg/actuation 2 puff inhalation Q4H PRN 06/15/21 08/27/22 aerosol inhaler (Ventolin HFA) Shortness Of Breath trazodone 150 mg tablet 150 mg PO BEDTIME 11/05/21 08/27/22 benztropine 1 mg tablet 1 mg PO BID 12/26/21 08/27/22 fluphenazine HCl 5 mg tablet 1 tab PO BEDTIME 03/19/22 08/27/22 chlorpromazine 25 mg tablet 1 tab PO TID 06/17/22 08/27/22 hydroxyzine HCl 50 mg tablet 1 tab PO DAILY 06/17/22 08/27/22 fluoxetine 20 mg capsule 60 mg PO DAILY 07/30/22 08/27/22 lisinopril 5 mg tablet 1 tab PO DAILY 07/30/22 08/27/22 mirtazapine 7.5 mg tablet 1 tab PO BEDTIME 07/30/22 08/27/22 nicotine (polacrilex) 4 mg gum 1 ea PO Q2H PRN Smoking Cessation 07/30/22 08/27/22 senna 8.6 mg PO BEDTIME 08/26/22 08/27/22 Previous Rx's Medication Instructions Recorded prazosin 1 mg capsule 4 mg PO BEDTIME 30 days #120 caps 10/18/21 ondansetron 4 mg disintegrating 4 mg PO Q6-8H PRN nausea and 02/04/22 tablet vomiting #14 tabs Allergies Allergy/AdvReac Type Severity Reaction Status Date / Time Fish Containing Products Allergy Severe ANAPHYLAXIS Verified 08/28/22 19:29 codeine [Codeine] Allergy Unknown RASH Verified 08/28/22 19:29 Penicillins Allergy Unknown RASH Verified 08/28/22 19:29 prednisone [Prednisone] Allergy Unknown RASH Verified 08/28/22 19:29 Sulfa (Sulfonamide Allergy Unknown RASH Verified 08/28/22 19:29 Antibiotics) [Sulfa (Sulfonamides)] azithromycin [AZITHROMYCIN] AdvReac Severe RASH Verified 08/28/22 19:29 ziprasidone [From Geodon] AdvReac Intermediate dysuria, Verified 08/28/22 19:29 rash Review of Systems Review of Systems: Yes all other systems are reviewed and are negative PMFSH Past Medical History Medical History Acetaminophen overdose Borderline personality disorder Bronchitis Depression Diabetes type 2, controlled Full body hives GERD (gastroesophageal reflux disease) History of attempted suicide History of non-suicidal self-harm Hyperlipidemia Hypomagnesemia Major depression MDD (major depressive disorder), recurrent episode, severe Mood disorder Overdose PTSD (post-traumatic stress disorder) Suicide attempt Suicide attempt by acetaminophen overdose Social History Social History Household Members: Other Household Members Other:: shelter Housing: Other Housing Other:: shelter Do you presently have visiting nurse or other home services: No Unable to assess alcohol history related to: Unknown Alcohol intake: former Patient Tobacco Use Status: Current everyday Tobacco user Tobacco use type: Cigarette Cigarette Packs Per Day: 1 Cigarettes Per Day: 16 Years Smoked: 20 e-Cigarette/Vaping Use: Never Used Substance Use Type: Marijuana service: No Current occupational status: unemployed and disabled Sexual orientation: Don't Know Physical Exam Vital Signs: Vital Signs: Last Vital Signs Temp 98.1 F 08/28/22 19:32 Pulse 116 H 08/28/22 19:32 Resp 18 08/28/22 19:32 BP 178/103 H 08/28/22 19:32 Pulse Ox 97 08/28/22 19:32 O2 Del Method 08/28/22 19:32 BMI result Body Mass Index 36.0 Appearance: Alert. Oriented X3. No acute distress. Eyes: PERRLA, No Nystagmus ENT: Pharynx normal. Oral Mucosa moist Neck: Normal inspection. Neck supple. CVS: Normal heart rate and rhythm. Pulses normal. Respiratory: No respiratory distress. Equal air entry bilateral, no wheezing/rales/rhonchi Abdomen: Soft and nontender. Bowel sounds are present, no mass palpable, no CVA tenderness Skin: Skin warm and dry. Normal skin color. Normal skin turgor. Extremities: No lower extremity edema. No calf tenderness superficial abrasion bilateral forearm and abdomen Psych: Feel depressed suicidal ideation + Neuro: Oriented X 3. No motor deficit. No sensory deficit.No cerebellar signs , cranial nerves II-XII intact MDM - Psych MDM Narrative Medical decision making narrative: Patient seen by therapist patient is in group 1 does not have any access to razor blade or Tylenol will be watched discharge patient back to shelter Differential Diagnosis Differential diagnosis: Likely bipolar disorder Lab Data Attestation: I reviewed the patient's lab results. Labs: Lab Results 08/28/22 Range/Units 19:17 COVID-19 ([facility]) Negative (Negative) COVID-19 Clin Com See Note Discharge Plan Discharge Clinical Impression: Bipolar disorder Patient Disposition: Home, Self-Care Instructions: Bipolar Disorder (ED) Additional Instructions: Continue taking medication follow with her therapist Prescriptions: No Action metformin 500 mg tablet 1 tab PO BID atorvastatin 10 mg tablet 1 tab PO DAILY verapamil 240 mg tablet extended release 240 mg PO BEDTIME montelukast 10 mg tablet 1 tab PO BEDTIME fluticasone propionate [Flovent HFA] 110 mcg/actuation HFA aerosol inhaler 2 puff inhalation BID albuterol sulfate [Ventolin HFA] 90 mcg/actuation HFA aerosol inhaler 2 puff inhalation Q4H PRN (Reason: Shortness Of Breath) trazodone 150 mg tablet 150 mg PO BEDTIME benztropine 1 mg tablet 1 mg PO BID hydroxyzine HCl 50 mg tablet 1 tab PO DAILY chlorpromazine 25 mg tablet 1 tab PO TID nicotine (polacrilex) 4 mg gum 1 ea PO Q2H PRN (Reason: Smoking Cessation) lisinopril 5 mg tablet 1 tab PO DAILY mirtazapine 7.5 mg tablet 1 tab PO BEDTIME fluoxetine 20 mg capsule 60 mg PO DAILY senna 8.6 mg PO BEDTIME prazosin 1 mg Capsule 4 mg PO BEDTIME 30 Days Qty: 120 0RF Protocol: Hold for SBP< HOLD for SBP < : 90 ondansetron 4 mg tablet,disintegrating 4 mg PO Q6-8H PRN (Reason: nausea and vomiting) Qty: 14 0RF fluphenazine HCl 5 mg tablet 1 tab PO BEDTIME
[2022-08-28 20:02] LABS: Amphetamine Screen Urine Not Detected (Not Detect); Barbiturates, Urine Not Detected (Not Detect); Benzodiazepines Screen Urine Not Detected (Not Detect); Cannabinoid Screen Urine Not Detected (Not Detect); Cocaine Screen Urine Not Detected (Not Detect); Fentanyl, urine Not Detected (Not Detect); Opiate Screen Urine Not Detected (Not Detect); Phencyclidine Screen Urine Not Detected (Not Detect)
--- NOTE | 2022-08-28 20:03 | MHC.CARE ---
CARE team met with pt to assess her level of risk for harm to self or others. Pt is a 46 year old female who is well known to the CARE team that arrived to the ED via ambulance from her assisted after engaging in self harm via cutting using a blade that she took out of a pencil sharpener that she recently bought. Numerous cuts were noted on pt's left forearm, all superficial. Pt reported that she doesn't know why she cut and that it happened so fast. She stated that the voices are always telling her to harm herself and that they got the best of me tonight. She shared that with Thanksgiving coming up, which is around the anniversary of her mother's , that she anticipates that she is going to have a difficult time. Pt denied having any active suicidal thoughts or urges to harm herself, denied HI, endorsed baseline auditory hallucinations, and did not appear to be responding to internal stimuli or experiencing acute symptoms of psychosis. Pt reported that one of the assisted staff took the razor blade and threw it away and she denied having any access to tylenol at the assisted. She is advocating for discharge back to her assisted with the plan to spend time with the new staff person, whom she has become attached to, and decorating her room with Antoine decals. At this time pt does not require any further behavioral health assessment or intervention. Recommendation was discussed with ED attending physician Parish Ruano MD. Pt will be discharged from the ED and transported back to her assisted via lyft.
== END 2022-08-28 20:29 | disposition home or self-care (01) ==
PROVIDERS: Emergency Provider Internal Medicine
DX: F31.81 Bipolar II disorder (principal); R45.851 Suicidal ideations; Z20.822 Contact with and (suspected) exposure to COVID-19; F41.9 Anxiety disorder, unspecified; R44.0 Auditory hallucinations; F60.3 Borderline personality disorder; F43.10 Post-traumatic stress disorder, unspecified; E11.9 Type 2 diabetes mellitus without complications; E78.5 Hyperlipidemia, unspecified; F17.210 Nicotine dependence, cigarettes, uncomplicated; F12.90 Cannabis use, unspecified, uncomplicated; Z91.52 Personal history of nonsuicidal self-harm; Z79.02 Long term (current) use of antithrombotics/antiplatelets; Z79.84 Long term (current) use of oral hypoglycemic drugs; Z79.899 Other long term (current) drug therapy
CPT/HCPCS: 80307; 87635; 99284

== ENCOUNTER 2022-08-29 11:46 | Emergency (ER) | payer MEDICARE, MEDICAID, SELFPAY ==
--- NOTE | 2022-08-29 12:20 | ED.GENADULT ---
HPI - General Adult General Chief complaint: Psychiatric Symptoms Stated complaint: Crisis Time Seen by Provider: 08/29/22 12:18 Source: patient and EMS Mode of arrival: EMS Limitations: no limitations History of Present Illness HPI narrative: Patient is a 46 year old assigned female at with a history of depression presenting to the emergency department today with suicidal ideation. Patient states that she feels like she wants to . Patient denies any dizziness, lightheadedness, abdominal pain, nausea, vomiting, fever, chills, blurry vision, double vision, loss of vision, chest pain, difficulty breathing, shortness of breath, back pain, night sweats, pain with urination, increased urinary frequency, increased urinary urgency, blood in her urine or stool, syncope or a near syncopal episode, recent trauma or falls, bowel incontinence, bladder incontinence, bowel retention, bladder retention, or any other complaints at this time. Onset (ago): year(s) Relieving factors: none Exacerbating factors: none Associated symptoms: denies other symptoms Treatments prior to arrival: none Related Data Home Medications Medication Instructions Recorded Confirmed atorvastatin 10 mg tablet 1 tab PO DAILY 05/29/21 08/27/22 fluticasone propionate 110 2 puff inhalation BID 05/29/21 08/27/22 mcg/actuation HFA aerosol inhaler (Flovent HFA) metformin 500 mg tablet 1 tab PO BID 05/29/21 08/27/22 montelukast 10 mg tablet 1 tab PO BEDTIME 05/29/21 08/27/22 verapamil 240 mg tablet,extended 240 mg PO BEDTIME 05/29/21 08/27/22 release albuterol sulfate 90 mcg/actuation 2 puff inhalation Q4H PRN 06/15/21 08/27/22 aerosol inhaler (Ventolin HFA) Shortness Of Breath trazodone 150 mg tablet 150 mg PO BEDTIME 11/05/21 08/27/22 benztropine 1 mg tablet 1 mg PO BID 12/26/21 08/27/22 fluphenazine HCl 5 mg tablet 1 tab PO BEDTIME 03/19/22 08/27/22 chlorpromazine 25 mg tablet 1 tab PO TID 06/17/22 08/27/22 hydroxyzine HCl 50 mg tablet 1 tab PO DAILY 06/17/22 08/27/22 fluoxetine 20 mg capsule 60 mg PO DAILY 07/30/22 08/27/22 lisinopril 5 mg tablet 1 tab PO DAILY 07/30/22 08/27/22 mirtazapine 7.5 mg tablet 1 tab PO BEDTIME 07/30/22 08/27/22 nicotine (polacrilex) 4 mg gum 1 ea PO Q2H PRN Smoking Cessation 07/30/22 08/27/22 senna 8.6 mg PO BEDTIME 08/26/22 08/27/22 Previous Rx's Medication Instructions Recorded prazosin 1 mg capsule 4 mg PO BEDTIME 30 days #120 caps 10/18/21 ondansetron 4 mg disintegrating 4 mg PO Q6-8H PRN nausea and 02/04/22 tablet vomiting #14 tabs Allergies Allergy/AdvReac Type Severity Reaction Status Date / Time Fish Containing Products Allergy Severe ANAPHYLAXIS Verified 08/29/22 12:26 codeine [Codeine] Allergy Intermediate RASH Verified 08/29/22 12:26 Penicillins Allergy Intermediate RASH Verified 08/29/22 12:26 prednisone [Prednisone] Allergy Intermediate RASH Verified 08/29/22 12:26 Sulfa (Sulfonamide Allergy Intermediate RASH Verified 08/29/22 12:26 Antibiotics) [Sulfa (Sulfonamides)] azithromycin [AZITHROMYCIN] AdvReac Severe RASH Verified 08/29/22 12:26 ziprasidone [From Geodon] AdvReac Intermediate dysuria, Verified 08/29/22 12:26 rash Review of Systems Constitutional: Constitutional: Reports no additional constitutional complaints, Denies chills, Denies fever(s) and Denies night sweats Eyes: Eyes: Reports no additional eye complaints, Denies blurry vision, Denies change in vision, Denies diplopia, Denies eye discharge, Denies loss of vision and Denies eye pain ENT: Denies dizziness Cardiovascular: Cardiovascular: Reports no additional cardiovascular complaints, Denies chest pain, Denies lightheadedness, Denies Loss of Consciousness and Denies dyspnea Respiratory: Respiratory: Reports no additional respiratory complaints and Denies dyspnea Gastrointestinal: Gastrointestinal: Reports no additional gastrointestinal complaints, Denies abdominal pain, Denies melena, Denies hematochezia, Denies change in bowel habits and Denies change in stool character Genitourinary: Genitourinary: Denies hematuria, Denies urinary frequency, Denies dysuria, Denies urinary incontinence, Denies urinary hesitancy and Denies urinary urgency Musculoskeletal: Musculoskeletal: Reports no additional musculoskeletal complaints, Denies numbness and Denies tingling Neurologic: Denies dizziness, Denies loss of vision, Denies numbness and Denies tingling Psychiatric: Psychiatric: Reports no additional psychiatric complaints and Reports depression Endocrine: Endocrine: Reports no additional endocrine complaints Hematologic/Lymphatic: Hematologic/Lymphatic: Reports no additional hematologic/lymphatic complaints Allergic/Immunologic: Allergic/Immunologic: Reports no additional allergic/immunologic complaints PMFSH Past Medical History Attestation statement: The following information was validated with the patient. Source: old records reviewed Medical History Acetaminophen overdose Borderline personality disorder Bronchitis Depression Diabetes type 2, controlled Full body hives GERD (gastroesophageal reflux disease) History of attempted suicide History of non-suicidal self-harm Hyperlipidemia Hypomagnesemia Major depression MDD (major depressive disorder), recurrent episode, severe Mood disorder Overdose PTSD (post-traumatic stress disorder) Suicide attempt Suicide attempt by acetaminophen overdose Social History Social History Household Members: Other Household Members Other:: senior living Housing: Other Housing Other:: senior living Do you presently have visiting nurse or other home services: No Unable to assess alcohol history related to: Unknown Alcohol intake: never Patient Tobacco Use Status: Current everyday Tobacco user Tobacco use type: Cigarette Cigarette Packs Per Day: 1 Cigarettes Per Day: 16 Years Smoked: 20 Smoked in Last 30 Days: Yes e-Cigarette/Vaping Use: Never Used Use of substances other than those prescribed or required for medical reasons: No Substance Use Type: Marijuana Advance Directives: No Patient : No service: No Current occupational status: unemployed and disabled Sexual orientation: Don't Know Physical Exam ED Vital Signs: Vital Signs - 24 hr 08/29/22 12:26 Temperature 97.7 F Pulse Rate 95 Respiratory Rate 18 Blood Pressure 123/74 Pulse Oximetry 95 Oxygen Delivery Method Room Air BMI result Body Mass Index 34.9 Const General: cooperative, no acute distress, alert and awake Nutritional Appearance: well nourished Orientation/consciousness: patient oriented x3 Limitations: no limitations HENMT Head: Yes normal to inspection and Yes atraumatic Ears: hearing grossly normal bilaterally and external ears normal General nose exam: Normal external nose present, no nasal discharge noted and no epistaxis Face and sinus: Yes normal facial exam, No abrasion and No laceration Mouth: Normal oral and palatal mucosa present, no drooling and no muffled voice Eyes General: appearance normal, both eyes and all related structures Periorbital: periorbital findings normal Eyelids: Yes eyelids normal Conjunctivae: conjunctivae normal Pupils: Equal, round and reactive pupils present EOM: EOMs intact bilaterally Neck Neck: Yes normal visual inspection, Yes full ROM and Yes no lymphadenopathy Chest Chest palpation & inspection: normal inspection of the chest Resp Effort & Inspection: normal respiratory effort and able to speak in complete sentences Auscultation: clear to auscultation bilaterally Cardio Rate: regular rate Rhythm: regular rhythm GI Inspection: Yes normal to inspection Neuro General: patient oriented x3 and moves all extremities Cranial nerves: Yes Equal, round and reactive pupils present Cognition (Neuro): normal cognition Motor exam (neuro): 5/5 motor strength present throughout Sensory Exam: Normal double simultaneous stimulation for sensation Coordination: [id number] test normal Extrem General: Yes normal to inspection, Yes full ROM and Yes capillary refill normal Psych Appearance: grossly normal Mental Status: mental status grossly normal Affect: normal affect Attitude: cooperative Thought process: Normal thought process present Thought content: Suicidality present (chronically) Insight: Good insight present (Psych) Medications Administered Discontinued Medications Generic Name Dose Route Start Last Admin Trade Name Bradleyq PRN Reason Stop Dose Admin Nicotine 21 mg 08/29/22 12:40 08/29/22 12:44 Nicotine 21 Mg Patch.[id number] TRANSDERMA 08/29/22 12:41 21 mg ONCE ONE Administration Medical Decision Making [facility] Narrative Medical decision making narrative: Patient is a 46 year old assigned female at with a history of depression presenting to the emergency department today with suicidal ideation. Patient's physical exam was unremarkable. Patient's blood work was unremarkable. I explained my physical exam findings as well as all test results to the patient. I answered all questions asked by the patient. Patient stated that she wants to go home and she is no longer suicidal. This is typical of the patient. Patient cleared for discharge. I stressed the importance of the patient taking her medication as prescribed. I stressed the importance of the patient following up with her primary care provider. I stressed the importance of the patient returning to the emergency department immediately if her symptoms were to worsen or if she were to develop any dizziness, shortness of breath, difficulty breathing, chest pain, blurry vision, loss of vision, nausea, vomiting, abdominal pain, fever, chills, back pain, or any other complaints. Patient verbalized agreement and understanding with this treatment plan and discharge. Medical Records Medical records reviewed: Yes I reviewed the patient's medical records. Lab Data Lab results reviewed: Yes I reviewed the patient's lab results. Result diagrams: 08/29/22 13:02 08/29/22 13: Labs: Lab Results 08/29/22 08/29/22 08/29/22 Range/Units 13:02 13: 13:02 WBC 9.8 (4.8-10.8) X10*3/uL RBC 4.16 L (4.20-5.50) X10*6/uL Hgb 11.2 L (12.0-16.0) g/dl Hct 35.3 L (37.0-47.0) % MCV 84.9 (80.0-98.0) fL MCH 26.9 L (27.0-33.0) pg MCHC 31.7 (31.0-35.0) g/dl RDW 14.1 (11.0-16.0) % Plt Count 266 (160-400) X10*3/uL MPV 10.0 (9.4-12.3) fL Immature Gran % (Auto) 0.3 (0.0-0.4) % Neut % (Auto) 68.5 (45-73) % Lymph % (Auto) 19.3 L (20-40) % Callahan % (Auto) 7.0 (2-11) % Eos % (Auto) 4.4 H (0-4) % Baso % (Auto) 0.5 (0-2) % Lymph # (Auto) 1.9 (1.2-4.9) X10*3/uL Callahan # (Auto) 0.7 (0.1-1.2) X10*3/uL Eos # (Auto) 0.4 (0.0-0.4) X10*3/uL Baso # (Auto) 0.1 (0.0-0.2) X10*3/uL Abs Immat Gran (auto) 0.03 (0.00-0.03) X10*3/uL Absolute Neuts (auto) 6.7 (2.0-8.3) x10*3/uL Absolute Nucleated RBC 0.000 (0.0-0.012) X10*3/uL Nucleated RBC % (auto) 0.0 (0.0-0.2) /100WBC Sodium 138 (135-145) mmol/L Potassium 4.2 (3.3-5.1) mmol/L Chloride 103 (96-108) mmol/L Carbon Dioxide 24 (22-29) mmol/L Anion Gap 15 (12-20) BUN 8 L (9-16) mg/dL Creatinine 0.76 (0.5-1.4) mg/dL Estim Creat Clear Calc 107.8 Estimated GFR > 60 Random Glucose 100 (60-115) mg/dL Calcium 9.5 D (8.4-10.2) mg/dL Total Bilirubin < 0.2 (0.0-1.0) mg/dL AST 19 (5-31) U/L ALT 16 (0-31) U/L Alkaline Phosphatase 118 H (39-117) U/L Total Protein 7.5 (6.5-8.0) g/dL Albumin 4.6 (3.5-5.0) g/dL Urine Test (NEGATIVE) Salicylates < 5.0 L (15-30) mg/dL Urine Opiates Screen Not Detected (Not Detect) Urine Fentanyl Screen Not Detected (Not Detect) Acetaminophen < 1 (<30) mcg/mL Ur Barbiturates Screen Not Detected (Not Detect) Ur Phencyclidine Scrn Not Detected (Not Detect) Ur Amphetamines Screen Not Detected (Not Detect) U Benzodiazepines Scrn Not Detected (Not Detect) Urine Cocaine Screen Not Detected (Not Detect) U Marijuana (THC) Screen Not Detected (Not Detect) Ethyl Alcohol < 10 mg/dL 08/29/22 Range/Units 13:02 WBC (4.8-10.8) X10*3/uL RBC (4.20-5.50) X10*6/uL Hgb (12.0-16.0) g/dl Hct (37.0-47.0) % MCV (80.0-98.0) fL MCH (27.0-33.0) pg MCHC (31.0-35.0) g/dl RDW (11.0-16.0) % Plt Count (160-400) X10*3/uL MPV (9.4-12.3) fL Immature Gran % (Auto) (0.0-0.4) % Neut % (Auto) (45-73) % Lymph % (Auto) (20-40) % Callahan % (Auto) (2-11) % Eos % (Auto) (0-4) % Baso % (Auto) (0-2) % Lymph # (Auto) (1.2-4.9) X10*3/uL Callahan # (Auto) (0.1-1.2) X10*3/uL Eos # (Auto) (0.0-0.4) X10*3/uL Baso # (Auto) (0.0-0.2) X10*3/uL Abs Immat Gran (auto) (0.00-0.03) X10*3/uL Absolute Neuts (auto) (2.0-8.3) x10*3/uL Absolute Nucleated RBC (0.0-0.012) X10*3/uL Nucleated RBC % (auto) (0.0-0.2) /100WBC Sodium (135-145) mmol/L Potassium (3.3-5.1) mmol/L Chloride (96-108) mmol/L Carbon Dioxide (22-29) mmol/L Anion Gap (12-20) BUN (9-16) mg/dL Creatinine (0.5-1.4) mg/dL Estim Creat Clear Calc Estimated GFR Random Glucose (60-115) mg/dL Calcium (8.4-10.2) mg/dL Total Bilirubin (0.0-1.0) mg/dL AST (5-31) U/L ALT (0-31) U/L Alkaline Phosphatase (39-117) U/L Total Protein (6.5-8.0) g/dL Albumin (3.5-5.0) g/dL Urine Test NEGATIVE (NEGATIVE) Salicylates (15-30) mg/dL Urine Opiates Screen (Not Detect) Urine Fentanyl Screen (Not Detect) Acetaminophen (<30) mcg/mL Ur Barbiturates Screen (Not Detect) Ur Phencyclidine Scrn (Not Detect) Ur Amphetamines Screen (Not Detect) U Benzodiazepines Scrn (Not Detect) Urine Cocaine Screen (Not Detect) U Marijuana (THC) Screen (Not Detect) Ethyl Alcohol mg/dL Discharge Plan Discharge Clinical Impression: Depression Patient Disposition: Home, Self-Care Prescriptions: No Action metformin 500 mg tablet 1 tab PO BID atorvastatin 10 mg tablet 1 tab PO DAILY verapamil 240 mg tablet extended release 240 mg PO BEDTIME montelukast 10 mg tablet 1 tab PO BEDTIME fluticasone propionate [Flovent HFA] 110 mcg/actuation HFA aerosol inhaler 2 puff inhalation BID albuterol sulfate [Ventolin HFA] 90 mcg/actuation HFA aerosol inhaler 2 puff inhalation Q4H PRN (Reason: Shortness Of Breath) trazodone 150 mg tablet 150 mg PO BEDTIME benztropine 1 mg tablet 1 mg PO BID hydroxyzine HCl 50 mg tablet 1 tab PO DAILY chlorpromazine 25 mg tablet 1 tab PO TID nicotine (polacrilex) 4 mg gum 1 ea PO Q2H PRN (Reason: Smoking Cessation) lisinopril 5 mg tablet 1 tab PO DAILY mirtazapine 7.5 mg tablet 1 tab PO BEDTIME fluoxetine 20 mg capsule 60 mg PO DAILY senna 8.6 mg PO BEDTIME prazosin 1 mg Capsule 4 mg PO BEDTIME 30 Days Qty: 120 0RF Protocol: Hold for SBP< HOLD for SBP < : 90 ondansetron 4 mg tablet,disintegrating 4 mg PO Q6-8H PRN (Reason: nausea and vomiting) Qty: 14 0RF fluphenazine HCl 5 mg tablet 1 tab PO BEDTIME Interventions: ED Discharge Assessment Last Done: 08/29/22 14:31 Discharge Date/Time: 08/29/22 14:38
[2022-08-29 12:26] VITALS: BP 123/74; PULSE 95; RESP 18; TEMP 36.5; O2SAT 95; BMI 34.9
[2022-08-29] MEDS: Nicotine 21 MG PATCH.TD24 TRANSDERMA (12:44)
[2022-08-29 13:08] LABS: MANUAL DIFF FLAG NO
[2022-08-29 13:10] LABS: Basophils Absolute Auto 0.1 X10*3/uL (0.0-0.2); Basophils Percent Auto 0.5 % (0-2); Eosinophils Absolute Auto 0.4 X10*3/uL (0.0-0.4); Eosinophils Percent Auto 4.4 % (0-4); Hematocrit 35.3 % (37.0-47.0); Hemoglobin 11.2 g/dl (12.0-16.0); Imm Gran Abs Auto 0.03 X10*3/uL (0.00-0.03); Imm Gran Pct Auto 0.3 % (0.0-0.4); Lymphocytes Absolute Auto 1.9 X10*3/uL (1.2-4.9); Lymphocytes Percent Auto 19.3 % (20-40); Mean Corpuscular HGB Conc 31.7 g/dl (31.0-35.0); Mean Corpuscular Hemoglobin 26.9 pg (27.0-33.0); Mean Corpuscular Volume 84.9 fL (80.0-98.0); Monocytes Absolute Auto 0.7 X10*3/uL (0.1-1.2); Neutrophils Absolute Auto 6.7 x10*3/uL (2.0-8.3); Neutrophils Percent Auto 68.5 % (45-73); Platelet Count 266 X10*3/uL (160-400); Red Blood Count 4.16 X10*6/uL (4.20-5.50); Red Cell Distribution Width 14.1 % (11.0-16.0); White Blood Count 9.8 X10*3/uL (4.8-10.8)
[2022-08-29 13:17] LABS: UPreg QC Valid YES; Urine Pregnancy NEGATIVE (NEGATIVE)
[2022-08-29 13:27] LABS: Amphetamine Screen Urine Not Detected (Not Detect); Barbiturates, Urine Not Detected (Not Detect); Benzodiazepines Screen Urine Not Detected (Not Detect); Cannabinoid Screen Urine Not Detected (Not Detect); Cocaine Screen Urine Not Detected (Not Detect); Fentanyl, urine Not Detected (Not Detect); Opiate Screen Urine Not Detected (Not Detect); Phencyclidine Screen Urine Not Detected (Not Detect)
[2022-08-29 13:28] LABS: Acetaminophen LAB < 1 mcg/mL (<30); Alanine Aminotransferase 16 U/L (0-31); Albumin Level 4.6 g/dL (3.5-5.0); Alkaline Phosphatase 118 U/L (39-117); Anion Gap 15 (12-20); Aspartate Amino Transferase 19 U/L (5-31); Bilirubin Total < 0.2 mg/dL (0.0-1.0); Blood Urea Nitrogen 8 mg/dL (9-16); Calcium 9.5 mg/dL (8.4-10.2); Carbon Dioxide 24 mmol/L (22-29); Chloride 103 mmol/L (96-108); Creatinine Clr Calc Pharmacy 107.8; Estimated Glomerular Filt Rate > 60; Ethanol < 10 mg/dL; Glucose Random 100 mg/dL (60-115); Potassium 4.2 mmol/L (3.3-5.1); Salicylate < 5.0 mg/dL (15-30); Sodium 138 mmol/L (135-145); Total Protein 7.5 g/dL (6.5-8.0)
--- NOTE | 2022-08-29 13:28 | PC.NURSE ---
patient a&ox3, nicotine patch obtained and placed on pts rt arm, labs obtained, covid swab obtained, pt calm and compliant with care, will continue to monitor.
--- NOTE | 2022-08-29 13:46 | PC.NURSE ---
pt came to the nursing station and stated I want to go home, I feel safe now this nurse called the care team and they stated they would be out to speak with the patient shortly.
--- NOTE | 2022-08-29 14:38 | PC.NURSE ---
pt in wr waiting for lyft ride
--- NOTE | 2022-08-29 14:41 | MHC.CARE ---
Patient came to the ED by ambulance today with the report of auditory hallucinations and suicidal ideation, by her own request, she was dropped off at the ED by the [facility] Co-response clinician that came to the alf to meet with her. Upon arrival patient asked for paper and crayons to write her emotions that she could not verbally communicate. She wrote, ?I want to , I am anxious and want to self harm. A short time later patient asked to be discharged as she was feeling better CARE Team met with patient for a risk assessment. She appeared calm during assessment, she was pleasant and polite with this editorial writer. Her affect was depressed and she was dressed in [facility]. She was easy to engage in conversation and presented with no evidence of internal preoccupation or response to internal stimuli. When asked what brought her to the hospital Lucita reported, ?I felt like shit again. I said I needed to go to the hospital.? She stated that today that she was unable to get a ride to work triggering her emotions, ?It really set me off.? Patient reports, ?I?m not mad anymore? and that she?d like to go home. During this meeting she stated, ?A lot of me doesn?t feel even half of the stuff I wrote on there. I want to go home, I mean I have stuff to do like wrapping Savannah presents.? Lucita agreed that upon discharge today she would like a follow phone call from one of the CARE team clinicians. ED provider, TIMI Faria in agreement with plan to discharge
== END 2022-08-29 14:38 | disposition home or self-care (01) ==
PROVIDERS: Physician Assistant Medical; Emergency Provider Emergency Medicine Emergency Medical Services; PCP Nurse Practitioner Family
DX: F33.1 Major depressive disorder, recurrent, moderate (principal); R45.851 Suicidal ideations; Z79.899 Other long term (current) drug therapy; F17.210 Nicotine dependence, cigarettes, uncomplicated; Z71.6 Tobacco abuse counseling
CPT/HCPCS: 80053; 80143; 80179; 80307; 81025; 82077; 85025; 99284

== ENCOUNTER 2022-08-31 17:59 | Emergency (ER) | payer MEDICARE, MEDICAID, SELFPAY ==
[2022-08-31 18:02] VITALS: BP 168/96; PULSE 110; O2SAT 97
[2022-08-31 18:06] VITALS: BMI 39.0
--- NOTE | 2022-08-31 18:10 | ED.PSYCH ---
HPI - Psych General Chief Complaint: Psychiatric Symptoms Stated Complaint: crisis Time Seen by Provider: 08/31/22 18:03 Source: patient and EMS Mode of arrival: EMS Limitations: no limitations History of Present Illness HPI Narrative: ?46-year-old female past medical history significant personality depression bipolar 2 with melancholic peatures, PTSD, DM, GERD presents via ambulance with comand auditory hallucination and complaints of feeling suicidal she tells me im really suicidal today . Reports she attended all groups at [facility] today and she couldnt stop thinking about her dying. Tells me shes scared. Denies visual and tactile hallucinations. Denies drugs, alcohol, and tobacco. Has been taking her medications as prescribed however hasnt taken her night dose of medications. No medical complaints. Related Data Home Medications Medication Instructions Recorded Confirmed atorvastatin 10 mg tablet 1 tab PO DAILY 05/29/21 08/27/22 fluticasone propionate 110 2 puff inhalation BID 05/29/21 08/27/22 mcg/actuation HFA aerosol inhaler (Flovent HFA) metformin 500 mg tablet 1 tab PO BID 05/29/21 08/27/22 montelukast 10 mg tablet 1 tab PO BEDTIME 05/29/21 08/27/22 verapamil 240 mg tablet,extended 240 mg PO BEDTIME 05/29/21 08/27/22 release albuterol sulfate 90 mcg/actuation 2 puff inhalation Q4H PRN 06/15/21 08/27/22 aerosol inhaler (Ventolin HFA) Shortness Of Breath trazodone 150 mg tablet 150 mg PO BEDTIME 11/05/21 08/27/22 benztropine 1 mg tablet 1 mg PO BID 12/26/21 08/27/22 fluphenazine HCl 5 mg tablet 1 tab PO BEDTIME 03/19/22 08/27/22 chlorpromazine 25 mg tablet 1 tab PO TID 06/17/22 08/27/22 hydroxyzine HCl 50 mg tablet 1 tab PO DAILY 06/17/22 08/27/22 fluoxetine 20 mg capsule 60 mg PO DAILY 07/30/22 08/27/22 lisinopril 5 mg tablet 1 tab PO DAILY 07/30/22 08/27/22 mirtazapine 7.5 mg tablet 1 tab PO BEDTIME 07/30/22 08/27/22 nicotine (polacrilex) 4 mg gum 1 ea PO Q2H PRN Smoking Cessation 07/30/22 08/27/22 senna 8.6 mg PO BEDTIME 08/26/22 08/27/22 Previous Rx's Medication Instructions Recorded prazosin 1 mg capsule 4 mg PO BEDTIME 30 days #120 caps 10/18/21 ondansetron 4 mg disintegrating 4 mg PO Q6-8H PRN nausea and 02/04/22 tablet vomiting #14 tabs Allergies Allergy/AdvReac Type Severity Reaction Status Date / Time Fish Containing Products Allergy Severe ANAPHYLAXIS Verified 08/29/22 12:26 codeine [Codeine] Allergy Intermediate RASH Verified 08/29/22 12:26 Penicillins Allergy Intermediate RASH Verified 08/29/22 12:26 prednisone [Prednisone] Allergy Intermediate RASH Verified 08/29/22 12:26 Sulfa (Sulfonamide Allergy Intermediate RASH Verified 08/29/22 12:26 Antibiotics) [Sulfa (Sulfonamides)] azithromycin [AZITHROMYCIN] AdvReac Severe RASH Verified 08/29/22 12:26 ziprasidone [From Geodon] AdvReac Intermediate dysuria, Verified 08/29/22 12:26 rash Review of Systems Review of Systems: Constitutional : No Weight loss, No Fever, No Chills, No Fatigue, No Malaise ENT/Mouth : No sore throat, No Rhinorrhea Eyes: No Eye Pain, No Swelling, No Redness Cardiovascular : No Chest Pain, No SOB, No Dyspnea on Exertion, No Orthopnea, No Edema, No Palpitations Respiratory : No Cough, No Sputum, No Wheezing Gastrointestinal : No Nausea, No Vomiting, No Diarrhea, No Constipation, No abdominal Pain, No Hematochezia, No Melena Genitourinary : No Dysuria, No Urinary Frequency, No Hematuria, Musculoskeletal : No joint pain, No Myalgias, No Joint Swelling Skin : No Skin Lesions, No rash Neuro : No Weakness, No Numbness, No Dizziness, No Headache Psych : + Anxiety/Panic, + Depression, + SI All other systems reviewed and are negative Yes all other systems are reviewed and are negative [facility] Past Medical History Attestation statement: The following information was validated with the patient. 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: Other Household Members Other:: long term Housing: Other Housing Other:: long term Do you presently have visiting nurse or other home services: No Unable to assess alcohol history related to: Unknown Alcohol intake: never Patient Tobacco Use Status: Current everyday Tobacco user Tobacco use type: Cigarette Cigarette Packs Per Day: 1 Cigarettes Per Day: 16 Years Smoked: 20 e-Cigarette/Vaping Use: Never Used Substance Use Type: Marijuana Advance Directives: No Advance Directives Information Provided: No service: No Current occupational status: unemployed and disabled Sexual orientation: Don't Know Physical Exam Vital Signs: Vital Signs: BMI result Body Mass Index 39.0 vss Head:? Normocephalic, atraumatic, no step-offs or deformities Eyes: Pupils equal, round and reactive to light.? ENT: Pharynx normal.? Neck: Normal inspection.? Neck supple.? CVS: Normal heart rate and rhythm.? Pulses normal.? Respiratory: No respiratory distress.? Breath sounds normal.? Abdomen: Soft and nontender.? Skin: Skin warm and dry.? Normal skin color.? Normal skin turgor.?Old self inflicted wounds to b/l UE, LE and abdomen Extremities: No lower extremity edema.? No calf ttp.? 5/5 strength to bilateral upper and lower extremities Back:? No midline tenderness, no C-spine tenderness, full range of motion, no CVA tenderness bilaterally Neuro: Oriented X 3.? No motor deficit.? No sensory deficit. CN 2-12 intact? Course Reevaluation(s) Reevaluation #1: CBC appears to be within normal limits, around patient's baseline. Chemistry with no acute findings requiring intervention. Salicylates, acetaminophen, ethanol negative. Patient feeling better, spoke to Nicole from the care team who evaluated her, patient denying SI and HI, tells them she is feeling much better and she is no longer feeling the way she was when she 1st came in, she is excited to go back to her long term. At this time patient will be discharged back to long term advised to return with new or worsening symptoms. At this time I feel comfortable with plan Time: 19:55 MDM - Psych MDM Narrative Medical decision making narrative: 1812 46 y/o f presenting with anxiety, vague si w/ plan to OD? and command auditory hallucinations. No medical complaints at this time.? PE benign. Plan to observe the patient in behavioral health unit, crisis evaluation. Suspect recurrent anxiety, less likely organic cause of the patient's symptoms such as metabolic derangement. Will Medical Records Attestation: I reviewed the patient's medical records. Lab Data Attestation: I reviewed the patient's lab results. Result diagrams: 08/31/22 18:58 08/31/22 18:58 Labs: Lab Results 08/31/22 08/31/22 08/31/22 Range/Units 18:20 18:58 18:58 WBC 7.6 (4.8-10.8) X10*3/uL RBC 3.75 L (4.20-5.50) X10*6/uL Hgb 10.2 L (12.0-16.0) g/dl Hct 31.9 L (37.0-47.0) % MCV 85.1 (80.0-98.0) fL MCH 27.2 (27.0-33.0) pg MCHC 32.0 (31.0-35.0) g/dl RDW 14.0 (11.0-16.0) % Plt Count 255 (160-400) X10*3/uL MPV 9.8 (9.4-12.3) fL Immature Gran % (Auto) 0.5 H (0.0-0.4) % Neut % (Auto) 62.5 (45-73) % Lymph % (Auto) 23.6 (20-40) % Upton % (Auto) 7.7 (2-11) % Eos % (Auto) 5.3 H (0-4) % Baso % (Auto) 0.4 (0-2) % Lymph # (Auto) 1.8 (1.2-4.9) X10*3/uL Upton # (Auto) 0.6 (0.1-1.2) X10*3/uL Eos # (Auto) 0.4 (0.0-0.4) X10*3/uL Baso # (Auto) 0.0 (0.0-0.2) X10*3/uL Abs Immat Gran (auto) 0.04 H (0.00-0.03) X10*3/uL Absolute Neuts (auto) 4.7 (2.0-8.3) x10*3/uL Absolute Nucleated RBC 0.000 (0.0-0.012) X10*3/uL Nucleated RBC % (auto) 0.0 (0.0-0.2) /100WBC Sodium 140 (135-145) mmol/L Potassium 3.8 (3.3-5.1) mmol/L Chloride 106 (96-108) mmol/L Carbon Dioxide 24 (22-29) mmol/L Anion Gap 14 (12-20) BUN 8 L (9-16) mg/dL Creatinine 0.78 (0.5-1.4) mg/dL Estim Creat Clear Calc 92.3 Estimated GFR > 60 Random Glucose 134 H (60-115) mg/dL Calcium 8.9 D (8.4-10.2) mg/dL Magnesium 1.6 (1.6-2.6) mg/dL Total Bilirubin 0.2 (0.0-1.0) mg/dL AST 13 (5-31) U/L ALT 13 (0-31) U/L Alkaline Phosphatase 95 (39-117) U/L Total Protein 6.5 (6.5-8.0) g/dL Albumin 4.0 (3.5-5.0) g/dL Salicylates < 5.0 L (15-30) mg/dL Acetaminophen < 1 (<30) mcg/mL Ethyl Alcohol < 10 mg/dL COVID-19 ([facility]ICK) Negative (Negative) COVID-19 Clin Com See Note Critical Care Time Critical Care Time Critical Care Time: No Discharge Plan Discharge Clinical Impression: Depression, Acute anxiety Patient Disposition: Home, Self-Care Instructions: Depression (ED), Anxiety (ED) Additional Instructions: Take your medications as prescribed. If you were prescribed antibiotics today, it is important that you take your medication to their entirety, do not skip any doses, do not finish them early. Follow-up with your primary care provider this week. Follow-up with the behavioral health team tomorrow Return to the emergency department with new or worsening symptoms. Such as fevers, chills, chest pain, shortness of breath, nausea, vomiting, dizziness, headache, vision changes, lethargy, suicidal or homicidal ideation In case of emergency call 911 Prescriptions: No Action metformin 500 mg tablet 1 tab PO BID atorvastatin 10 mg tablet 1 tab PO DAILY verapamil 240 mg tablet extended release 240 mg PO BEDTIME montelukast 10 mg tablet 1 tab PO BEDTIME fluticasone propionate [Flovent HFA] 110 mcg/actuation HFA aerosol inhaler 2 puff inhalation BID albuterol sulfate [Ventolin HFA] 90 mcg/actuation HFA aerosol inhaler 2 puff inhalation Q4H PRN (Reason: Shortness Of Breath) trazodone 150 mg tablet 150 mg PO BEDTIME benztropine 1 mg tablet 1 mg PO BID hydroxyzine HCl 50 mg tablet 1 tab PO DAILY chlorpromazine 25 mg tablet 1 tab PO TID nicotine (polacrilex) 4 mg gum 1 ea PO Q2H PRN (Reason: Smoking Cessation) lisinopril 5 mg tablet 1 tab PO DAILY mirtazapine 7.5 mg tablet 1 tab PO BEDTIME fluoxetine 20 mg capsule 60 mg PO DAILY senna 8.6 mg PO BEDTIME prazosin 1 mg Capsule 4 mg PO BEDTIME 30 Days Qty: 120 0RF Protocol: Hold for SBP< HOLD for SBP < : 90 ondansetron 4 mg tablet,disintegrating 4 mg PO Q6-8H PRN (Reason: nausea and vomiting) Qty: 14 0RF fluphenazine HCl 5 mg tablet 1 tab PO BEDTIME Referrals: [facility]Provider Group[facility] - 1 day Maribel Marquez NP [Primary Care Provider] - 2 days Stand Alone Forms: Work/School Release
[2022-08-31 18:59] LABS: COVID-19 Test Negative (Negative)
[2022-08-31 19:02] LABS: MANUAL DIFF FLAG NO
[2022-08-31 19:03] LABS: Basophils Percent Auto 0.4 % (0-2); Eosinophils Absolute Auto 0.4 X10*3/uL (0.0-0.4); Eosinophils Percent Auto 5.3 % (0-4); Hematocrit 31.9 % (37.0-47.0); Hemoglobin 10.2 g/dl (12.0-16.0); Imm Gran Abs Auto 0.04 X10*3/uL (0.00-0.03); Imm Gran Pct Auto 0.5 % (0.0-0.4); Lymphocytes Absolute Auto 1.8 X10*3/uL (1.2-4.9); Lymphocytes Percent Auto 23.6 % (20-40); Mean Corpuscular Hemoglobin 27.2 pg (27.0-33.0); Mean Corpuscular Volume 85.1 fL (80.0-98.0); Mean Platelet Volume 9.8 fL (9.4-12.3); Monocytes Absolute Auto 0.6 X10*3/uL (0.1-1.2); Monocytes Percent Auto 7.7 % (2-11); Neutrophils Absolute Auto 4.7 x10*3/uL (2.0-8.3); Neutrophils Percent Auto 62.5 % (45-73); Platelet Count 255 X10*3/uL (160-400); Red Blood Count 3.75 X10*6/uL (4.20-5.50); White Blood Count 7.6 X10*3/uL (4.8-10.8)
--- NOTE | 2022-08-31 19:13 | PC.NURSE ---
Addendum entered by Daria Ro RN 08/31/22 20:24: pt discharged, instructions given, verbalized understanding pt is alert and oriented all pt belonging returned to the pt Original Note: report received from WALKER Mas pt appear asleep no signs of acute distress notice breathing equally unlabored close monitoring maintained
--- NOTE | 2022-08-31 19:14 | MHC.CARE ---
CARE team met with pt to assess her level of risk for harm to self or others. Pt is a 46 year old female who is well known to the CARE team from previous ED visits, most recently seen on 08/27, 08/28, and 08/29 for similar presentation of suicidal ideation with no plan secondary to exacerbation of command auditory hallucinations. Pt reported that she had been experiencing suicidal thoughts throughout the day, denied having a plan or wanting to hurt herself, stated that she came to the hospital because she was having a panic attack because of the severity of the voices. She reported that the voices have and that she is no longer having any thoughts of suicide or . Pt is advocating that she be discharged back to her [facility]. Pt does not require any further behavioral health assessment or intervention at this time. ED provider updated re: recommendation. Pt will be discharged and transported home via lyft.
[2022-08-31 19:20] LABS: Alanine Aminotransferase 13 U/L (0-31); Alkaline Phosphatase 95 U/L (39-117); Anion Gap 14 (12-20); Aspartate Amino Transferase 13 U/L (5-31); Bilirubin Total 0.2 mg/dL (0.0-1.0); Blood Urea Nitrogen 8 mg/dL (9-16); Calcium 8.9 mg/dL (8.4-10.2); Carbon Dioxide 24 mmol/L (22-29); Chloride 106 mmol/L (96-108); Creatinine Clr Calc Pharmacy 92.3; Estimated Glomerular Filt Rate > 60; Ethanol < 10 mg/dL; Glucose Random 134 mg/dL (60-115); Magnesium 1.6 mg/dL (1.6-2.6); Potassium 3.8 mmol/L (3.3-5.1); Salicylate < 5.0 mg/dL (15-30); Sodium 140 mmol/L (135-145); Total Protein 6.5 g/dL (6.5-8.0)
[2022-08-31 19:24] LABS: Acetaminophen LAB < 1 mcg/mL (<30)
--- NOTE | 2022-09-01 19:14 | MHC.CARE ---
CARE Team attempted to follow up call pt, but [facility] staff reports that she is at another hospital.
== END 2022-08-31 20:23 | disposition home or self-care (01) ==
PROVIDERS: Physician Assistant; Emergency Provider Emergency Medicine; PCP Nurse Practitioner Family
DX: F33.1 Major depressive disorder, recurrent, moderate (principal); R44.0 Auditory hallucinations; F41.1 Generalized anxiety disorder; F43.0 Acute stress reaction; Z20.822 Contact with and (suspected) exposure to COVID-19; Z79.899 Other long term (current) drug therapy
CPT/HCPCS: 80053; 80143; 80179; 82077; 83735; 85025; 87635; 99282; 99283

== ENCOUNTER 2022-09-02 22:34 | Emergency (ER) | payer MEDICARE, MEDICAID, SELFPAY ==
--- NOTE | 2022-09-02 22:43 | ED.PSYCH ---
HPI - Psych General Stated Complaint: AUDITORY HALUCINATIONS PER EMS Time Seen by Provider: 09/02/22 22:36 Source: patient and EMS Mode of arrival: EMS Limitations: no limitations History of Present Illness HPI Narrative: Patient comes to emergency room complaining auditory hallucinations. Patient states that the voices are telling her to cut herself. Patient states that she has not attempted hurting herself today, has no new lacerations in wrists chest abdomen where she usually does cut. Patient denies using any Tylenol or aspirin. Related Data Home Medications Medication Instructions Recorded Confirmed atorvastatin 10 mg tablet 1 tab PO DAILY 05/29/21 08/27/22 fluticasone propionate 110 2 puff inhalation BID 05/29/21 08/27/22 mcg/actuation HFA aerosol inhaler (Flovent HFA) metformin 500 mg tablet 1 tab PO BID 05/29/21 08/27/22 montelukast 10 mg tablet 1 tab PO BEDTIME 05/29/21 08/27/22 verapamil 240 mg tablet,extended 240 mg PO BEDTIME 05/29/21 08/27/22 release albuterol sulfate 90 mcg/actuation 2 puff inhalation Q4H PRN 06/15/21 08/27/22 aerosol inhaler (Ventolin HFA) Shortness Of Breath trazodone 150 mg tablet 150 mg PO BEDTIME 11/05/21 08/27/22 benztropine 1 mg tablet 1 mg PO BID 12/26/21 08/27/22 fluphenazine HCl 5 mg tablet 1 tab PO BEDTIME 03/19/22 08/27/22 chlorpromazine 25 mg tablet 1 tab PO TID 06/17/22 08/27/22 hydroxyzine HCl 50 mg tablet 1 tab PO DAILY 06/17/22 08/27/22 fluoxetine 20 mg capsule 60 mg PO DAILY 07/30/22 08/27/22 lisinopril 5 mg tablet 1 tab PO DAILY 07/30/22 08/27/22 mirtazapine 7.5 mg tablet 1 tab PO BEDTIME 07/30/22 08/27/22 nicotine (polacrilex) 4 mg gum 1 ea PO Q2H PRN Smoking Cessation 07/30/22 08/27/22 senna 8.6 mg PO BEDTIME 08/26/22 08/27/22 Previous Rx's Medication Instructions Recorded prazosin 1 mg capsule 4 mg PO BEDTIME 30 days #120 caps 10/18/21 ondansetron 4 mg disintegrating 4 mg PO Q6-8H PRN nausea and 02/04/22 tablet vomiting #14 tabs Allergies Allergy/AdvReac Type Severity Reaction Status Date / Time Fish Containing Products Allergy Severe ANAPHYLAXIS Verified 08/29/22 12:26 codeine [Codeine] Allergy Intermediate RASH Verified 08/29/22 12:26 Penicillins Allergy Intermediate RASH Verified 08/29/22 12:26 prednisone [Prednisone] Allergy Intermediate RASH Verified 08/29/22 12:26 Sulfa (Sulfonamide Allergy Intermediate RASH Verified 08/29/22 12:26 Antibiotics) [Sulfa (Sulfonamides)] azithromycin [AZITHROMYCIN] AdvReac Severe RASH Verified 08/29/22 12:26 ziprasidone [From Geodon] AdvReac Intermediate dysuria, Verified 08/29/22 12:26 rash Review of Systems Review of Systems: Constitutional : No Weight loss, No Fever, No Chills, No Night Sweats, No Fatigue, No Malaise ENT/Mouth : No Hearing loss, No Ear Pain, No Nasal Congestion, No Sinus Pain, No Hoarseness, No sore throat, No Rhinorrhea, No Swallowing Difficulty Eyes: No Eye Pain, No Swelling, No Redness, No Foreign Body, No Discharge, No Vision Changes Cardiovascular : No Chest Pain, No SOB, No Dyspnea on Exertion, No Orthopnea, No Edema, No Palpitations Respiratory : No Cough, No Sputum, No Wheezing, No Smoke Exposure, No Dyspnea Gastrointestinal : No Nausea, No Vomiting, No Diarrhea, No Constipation, No abdominal Pain, No Hematochezia, No Melena Genitourinary : no irregular bleeding, No Dysuria, No Urinary Frequency, No Hematuria, No Urinary Incontinence, No Urgency, No Flank Pain, No Urinary Flow Changes, No Hesitancy Musculoskeletal : No joint pain, No Myalgias, No Joint Swelling Skin : No Skin Lesions, No rash Neuro : No Weakness, No Numbness, No Paresthesias, No Loss of Consciousness, No Dizziness, No Headache Psych : Complaining of anxiety and depression, complaining of auditory hallucinations, voices telling her to hurt herself, no homicidal ideation Heme/Lymph: No Bruising, No Bleeding,No Lymphadenopathy Endocrine : No Polyuria, No Polydipsia, No Temperature Intolerance PMFSH Past Medical History Medical History Acetaminophen overdose Borderline personality disorder Bronchitis Depression Diabetes type 2, controlled Full body hives GERD (gastroesophageal reflux disease) History of attempted suicide History of non-suicidal self-harm Hyperlipidemia Hypomagnesemia Major depression MDD (major depressive disorder), recurrent episode, severe Mood disorder Overdose PTSD (post-traumatic stress disorder) Suicide attempt Suicide attempt by acetaminophen overdose Social History Social History Household Members: Other Household Members Other:: retirement Housing: Other Housing Other:: retirement Do you presently have visiting nurse or other home services: No Unable to assess alcohol history related to: Unknown Alcohol intake: never Patient Tobacco Use Status: Current everyday Tobacco user Tobacco use type: Cigarette Cigarette Packs Per Day: 1 Cigarettes Per Day: 16 Years Smoked: 20 e-Cigarette/Vaping Use: Never Used Substance Use Type: Marijuana service: No Current occupational status: unemployed and disabled Sexual orientation: Don't Know Physical Exam Const: Other: Appearance: Alert. Oriented X3. No acute distress. Eyes: Pupils equal, round and reactive to light. ENT: Pharynx normal. Neck: Normal inspection. Neck supple. No lymph nodes noted. No crepitus CVS: Normal heart rate and rhythm. Pulses normal. Normal S1 and S2 Respiratory: No respiratory distress. Breath sounds normal. No Wheezing. No rales Abdomen: Soft and nontender. No rigidity. No distention. Skin: Skin warm and dry. Normal skin color. Normal skin turgor. Extremities: No lower extremity edema. No Lacerations. No Rash Neuro: Oriented X 3. No motor deficit. No sensory deficit. Moving all extremities. No slurred speech. CN 2 through 12 grossly intact Psych: calm, cooperative, normal affect Course Course Course Narrative: Patient is well known to our service. Patient was seen for similar complaints 2 days ago. Patient has care team plan. Care team consult pending. Physician after recent started at 22:45 Discharge Plan Discharge Clinical Impression: Anxiety Patient Disposition: Still a Patient Prescriptions: No Action metformin 500 mg tablet 1 tab PO BID atorvastatin 10 mg tablet 1 tab PO DAILY verapamil 240 mg tablet extended release 240 mg PO BEDTIME montelukast 10 mg tablet 1 tab PO BEDTIME fluticasone propionate [Flovent HFA] 110 mcg/actuation HFA aerosol inhaler 2 puff inhalation BID albuterol sulfate [Ventolin HFA] 90 mcg/actuation HFA aerosol inhaler 2 puff inhalation Q4H PRN (Reason: Shortness Of Breath) trazodone 150 mg tablet 150 mg PO BEDTIME benztropine 1 mg tablet 1 mg PO BID hydroxyzine HCl 50 mg tablet 1 tab PO DAILY chlorpromazine 25 mg tablet 1 tab PO TID nicotine (polacrilex) 4 mg gum 1 ea PO Q2H PRN (Reason: Smoking Cessation) lisinopril 5 mg tablet 1 tab PO DAILY mirtazapine 7.5 mg tablet 1 tab PO BEDTIME fluoxetine 20 mg capsule 60 mg PO DAILY senna 8.6 mg PO BEDTIME prazosin 1 mg Capsule 4 mg PO BEDTIME 30 Days Qty: 120 0RF Protocol: Hold for SBP< HOLD for SBP < : 90 ondansetron 4 mg tablet,disintegrating 4 mg PO Q6-8H PRN (Reason: nausea and vomiting) Qty: 14 0RF fluphenazine HCl 5 mg tablet 1 tab PO BEDTIME
[2022-09-02 22:48] VITALS: BP 144/84; BP 178/120; PULSE 120; PULSE 94; RESP 16; TEMP 36.3; O2SAT 90; O2SAT 97; BMI 34.9
[2022-09-02 23:12] LABS: Appearance Urine Error; Color Urine Yellow; Glucose Urine UA Negative (Negative); Leukocyte Esterase Urine Small (1+) (Negative); Nitrite Urine Negative (Negative); Specific Gravity - Urine <= 1.005 (1.005-1.025); UMIC TRIGGER UACC YES; Urine Blood Small (1+) (Negative); Urine Ketones Negative (Negative); Urine Protein Negative (Neg-Trace)
[2022-09-02 23:13] LABS: UPreg QC Valid YES; Urine Pregnancy NEGATIVE (NEGATIVE)
[2022-09-02 23:23] LABS: Amphetamine Screen Urine Not Detected (Not Detect); Barbiturates, Urine Not Detected (Not Detect); Benzodiazepines Screen Urine Not Detected (Not Detect); Cannabinoid Screen Urine Not Detected (Not Detect); Cocaine Screen Urine Not Detected (Not Detect); Fentanyl, urine Not Detected (Not Detect); Opiate Screen Urine Not Detected (Not Detect); Phencyclidine Screen Urine Not Detected (Not Detect)
[2022-09-02 23:24] LABS: Bacteria Urine 4+ (None Seen); Hyaline Casts Urine 0-2 /LPF (0-2); RBC Urine >20 /HPF (0-2); UACC Culture Trigger YES; WBC Urine 0-5 /HPF (0-5)
[2022-09-02 23:26] LABS: COVID-19 Test Negative (Negative); IDNOW Serial# BCCEAD1C
--- NOTE | 2022-09-03 06:12 | PC.NURSE ---
Pt slept throughout the night. RN didn't notice any behavioral concerns.
[2022-09-03 06:29] VITALS: BP 124/69; PULSE 76; RESP 17; TEMP 36.9; O2SAT 95
--- NOTE | 2022-09-03 08:05 | PC.NURSE ---
PT SLEEPING. AWAITING BHN CONSULT. BKFST EATEN
--- NOTE | 2022-09-03 10:41 | MHC.CARE ---
CARE Team met with patient in [facility] for risk assessment, she arrive to the ED by ambulance last night with reported auditory hallucinations, voices telling her to stab herself. Patient stated that she had a good day and only became distressed when she could not sleep. At this time does not appear to be in crisis and denied suicidal ideation, plan or intention and would like to discharge home. Patient is future oriented, said she is excited that one of her roommates gave her a phone, has plans to visit with a friend today. She is aware that today will be the last LYFT ride provided by the hospital this month. ED provider, Dr. Contreras in agreement with plan to discharge patient home. CARE Team did attempt to reach [facility] staff as a courtesy and will call patient later today as a check in.
--- NOTE | 2022-09-04 10:26 | MHC.CARE ---
CARE Team called to follow-up with Lucita to discuss plan and provide support. No answer at this time. T/W will attempt contact at a later time.
--- NOTE | 2022-09-04 11:50 | MHC.CARE ---
CARE Team called to follow up with Lucita ([phone]). T/W left a voicemail prompting to call back.
== END 2022-09-03 10:56 | disposition home or self-care (01) ==
PROVIDERS: Emergency Medicine; Emergency Provider Emergency Medicine Emergency Medical Services; PCP Nurse Practitioner Family
DX: F41.9 Anxiety disorder, unspecified (principal); R44.0 Auditory hallucinations; Z20.822 Contact with and (suspected) exposure to COVID-19; F60.3 Borderline personality disorder; F31.81 Bipolar II disorder; F43.10 Post-traumatic stress disorder, unspecified; E11.9 Type 2 diabetes mellitus without complications; E78.5 Hyperlipidemia, unspecified; F17.210 Nicotine dependence, cigarettes, uncomplicated; Z91.52 Personal history of nonsuicidal self-harm; Z79.02 Long term (current) use of antithrombotics/antiplatelets; Z79.84 Long term (current) use of oral hypoglycemic drugs; Z79.899 Other long term (current) drug therapy
CPT/HCPCS: 80307; 81001; 81025; 87086; 87088; 87186; 87635; 99284; 99285

== ENCOUNTER 2022-09-05 18:59 | Emergency (ER) | payer MEDICARE, MEDICAID, SELFPAY ==
[2022-09-05 19:07] VITALS: BMI 34.9
--- NOTE | 2022-09-05 19:13 | ED.PSYCH ---
HPI - Psych General Chief Complaint: Psychiatric Symptoms Stated Complaint: CRISIS Time Seen by Provider: 09/05/22 19:08 Source: patient, EMS and old records reviewed Mode of arrival: EMS Limitations: no limitations History of Present Illness HPI Narrative: 46-year-old female with a history of borderline personality disorder, chronic auditory hallucinations with self-harm behavior, history of suicide attempt with Tylenol overdoses in the past, PTSD, major depressive disorder, GERD, DM, HLD who presents to the ER from her nursing home with auditory hallucinations telling her to try to kill herself. She states they are yelling at her to stab herself or overdose on medications. She denies any self harm or taking any tylenol or other meds in excess. She does not know what to do anymore. MD complaint: suicidal ideation and hallucinations Onset (ago): day(s) (3) Duration: constant and getting worse History of same: Yes Relieving factors: none Exacerbating factors: none Associated psychiatric symptoms: depression and suicidal ideation Associated symptoms: denies other symptoms Treatments prior to arrival: placed on mental health hold If self harm: admits thoughts of self harm and has plan Details of plan: overdose, stabbing Related Data Home Medications Medication Instructions Recorded Confirmed atorvastatin 10 mg tablet 10 mg PO DAILY 05/29/21 09/05/22 metformin 500 mg tablet 1 tab PO BID 05/29/21 09/05/22 montelukast 10 mg tablet 1 tab PO BEDTIME 05/29/21 09/05/22 benztropine 1 mg tablet 1 mg PO BID 12/26/21 09/05/22 fluphenazine HCl 5 mg tablet 1 tab PO BEDTIME 03/19/22 09/05/22 chlorpromazine 25 mg tablet 1 tab PO TID 06/17/22 09/05/22 fluoxetine 20 mg capsule 60 mg PO DAILY 07/30/22 09/05/22 lisinopril 5 mg tablet 1 tab PO DAILY 07/30/22 09/05/22 nicotine (polacrilex) 4 mg gum 1 ea PO Q2H PRN Smoking Cessation 07/30/22 09/05/22 Previous Rx's Medication Instructions Recorded prazosin 1 mg capsule 4 mg PO BEDTIME 30 days #120 caps 10/18/21 Allergies Allergy/AdvReac Type Severity Reaction Status Date / Time Fish Containing Products Allergy Severe ANAPHYLAXIS Verified 08/29/22 12:26 codeine [Codeine] Allergy Intermediate RASH Verified 08/29/22 12:26 Penicillins Allergy Intermediate RASH Verified 08/29/22 12:26 prednisone [Prednisone] Allergy Intermediate RASH Verified 08/29/22 12:26 Sulfa (Sulfonamide Allergy Intermediate RASH Verified 08/29/22 12:26 Antibiotics) [Sulfa (Sulfonamides)] azithromycin [AZITHROMYCIN] AdvReac Severe RASH Verified 08/29/22 12:26 ziprasidone [From Geodon] AdvReac Intermediate dysuria, Verified 08/29/22 12:26 rash Review of Systems Review of Systems: Constitutional: No Fever, No Chills ENT/Mouth: No sore throat, No Rhinorrhea Cardiovascular: No Chest Pain, No SOB Respiratory: No Cough, No Sputum Gastrointestinal: No Nausea, No Vomiting, No Diarrhea, No abdominal Pain Genitourinary: No Dysuria, No Urinary Frequency, No Hematuria Musculoskeletal: No joint pain, No Myalgias Skin: No Skin Lesions, No rash Neuro: No Weakness, No Numbness, No Dizziness, No Headache Psych: + Anxiety/Panic, + Depression, +SI, +AH, No VH, No delusions Heme/Lymph: No Bruising, No Lymphadenopathy PMFSH Past Medical History Medical History Acetaminophen overdose Borderline personality disorder Bronchitis Depression Diabetes type 2, controlled Full body hives GERD (gastroesophageal reflux disease) History of attempted suicide History of non-suicidal self-harm Hyperlipidemia Hypomagnesemia Major depression MDD (major depressive disorder), recurrent episode, severe Mood disorder Overdose PTSD (post-traumatic stress disorder) Suicide attempt Suicide attempt by acetaminophen overdose Social History Social History Household Members: Other Household Members Other:: nursing home Housing: Other Housing Other:: nursing home Do you presently have visiting nurse or other home services: No Unable to assess alcohol history related to: Unknown Alcohol intake: never Patient Tobacco Use Status: Current everyday Tobacco user Tobacco use type: Cigarette Cigarette Packs Per Day: 1 Cigarettes Per Day: 16 Years Smoked: 20 e-Cigarette/Vaping Use: Never Used Substance Use Type: Marijuana Advance Directives: No Advance Directives Information Provided: No service: No Current occupational status: unemployed and disabled Sexual orientation: Don't Know Physical Exam Vital Signs: Vital Signs: Last Vital Signs Temp 98.1 F 09/05/22 19:17 Pulse 90 09/05/22 19:17 Resp 17 09/05/22 19:17 BP 129/78 09/05/22 19:17 Pulse Ox 94 09/05/22 19:17 O2 Del Method 09/05/22 19:17 BMI result Body Mass Index 34.9 Appearance: Alert. Oriented X3. No acute distress. Eyes: Pupils equal, round and reactive to light. ENT: Pharynx normal. Neck: Normal inspection. Neck supple. CVS: Normal heart rate and rhythm. Pulses normal. Respiratory: No respiratory distress. Breath sounds normal. Abdomen: Soft and nontender. +BS x4 Skin: Skin warm and dry. Normal skin color. Normal skin turgor. No rashes. Extremities: No lower extremity edema. Bilateral forearms with innumerable well-healed scars consistent with prior self-harm. Neuro/psych: Oriented X 3. No motor deficit. No sensory deficit. CN II-XII intact. Depressed mood, auditory hallucinations and suicidal. Makes eye contact, mental status seems at baseline. Course Course Course Narrative: 46-year-old female with history of borderline personality disorder, major depression, suicidal ideation with a overdoses in the past presents to the ER with auditory hallucinations, voices telling her to stab herself or overdose on meds. She denies any actual overdose today. She was recently admitted for Tylenol overdose requiring N-acetylcysteine. Patient is depressed with auditory hallucinations, this is her baseline. Will check her basic labs in a.m. crisis team evaluate her. Reevaluation(s) Reevaluation #1: Labs are unremarkable. Patient is medically cleared. Will place patient in physician observation at this time. Physician observation started at 21:47. Patient placed in physician observation because patient is awaiting [facility] evaluation for the possible need of inpatient psych admission. At the time observation was started patient's vital signs were stable. Patient is alert and oriented. Neuro exam is non-focal. CV: RRR and lungs are clear. Will continue to monitor. MDM - Psych Lab Data Result diagrams: 09/05/22 20:07 09/05/22 20:07 Labs: Lab Results 09/05/22 09/05/22 09/05/22 Range/Units 19:29 20:07 20:07 WBC 8.8 (4.8-10.8) X10*3/uL RBC 3.83 L (4.20-5.50) X10*6/uL Hgb 10.3 L (12.0-16.0) g/dl Hct 32.7 L (37.0-47.0) % MCV 85.4 (80.0-98.0) fL MCH 26.9 L (27.0-33.0) pg MCHC 31.5 (31.0-35.0) g/dl RDW 14.5 (11.0-16.0) % Plt Count 281 (160-400) X10*3/uL MPV 9.9 (9.4-12.3) fL Immature Gran % (Auto) 0.3 (0.0-0.4) % Neut % (Auto) 64.8 (45-73) % Lymph % (Auto) 22.5 (20-40) % [place] % (Auto) 8.0 (2-11) % Eos % (Auto) 4.1 H (0-4) % Baso % (Auto) 0.3 (0-2) % Lymph # (Auto) 2.0 (1.2-4.9) X10*3/uL [place] # (Auto) 0.7 (0.1-1.2) X10*3/uL Eos # (Auto) 0.4 (0.0-0.4) X10*3/uL Baso # (Auto) 0.0 (0.0-0.2) X10*3/uL Abs Immat Gran (auto) 0.03 (0.00-0.03) X10*3/uL Absolute Neuts (auto) 5.7 (2.0-8.3) x10*3/uL Absolute Nucleated RBC 0.000 (0.0-0.012) X10*3/uL Nucleated RBC % (auto) 0.0 (0.0-0.2) /100WBC Sodium 140 (135-145) mmol/L Potassium 4.1 (3.3-5.1) mmol/L Chloride 105 (96-108) mmol/L Carbon Dioxide 25 (22-29) mmol/L Anion Gap 14 (12-20) BUN 12 (9-16) mg/dL Creatinine 0.73 (0.5-1.4) mg/dL Estim Creat Clear Calc 112.2 Estimated GFR > 60 Random Glucose 89 (60-115) mg/dL Calcium 9.0 (8.4-10.2) mg/dL Total Bilirubin 0.2 (0.0-1.0) mg/dL AST 14 (5-31) U/L ALT 13 (0-31) U/L Alkaline Phosphatase 106 (39-117) U/L Total Protein 7.0 (6.5-8.0) g/dL Albumin 4.4 (3.5-5.0) g/dL Urine Color Urine Appearance Urine pH (5.0-9.0) Ur Specific [place] (1.005-1.025) Urine Protein (Neg-Trace) mg/dL Urine Glucose (UA) (Negative) mg/dL Urine Ketones (Negative) mg/dL Urine Blood (Negative) Urine Nitrite (Negative) Ur Leukocyte Esterase (Negative) Urine RBC (0-2) /HPF Urine WBC (0-5) /HPF Ur Squamous Epith Cells (0-2) /HPF Urine Bacteria (None Seen) Hyaline Casts (0-2) /LPF Urine Test (NEGATIVE) Salicylates < 5.0 L (15-30) mg/dL Urine Opiates Screen (Not Detect) Urine Fentanyl Screen (Not Detect) Acetaminophen < 1 (<30) mcg/mL Ur Barbiturates Screen (Not Detect) Ur Phencyclidine Scrn (Not Detect) Ur Amphetamines Screen (Not Detect) U Benzodiazepines Scrn (Not Detect) Urine Cocaine Screen (Not Detect) U Marijuana (THC) Screen (Not Detect) COVID-19 (NICK) Negative (Negative) COVID-19 Clin Com See Note 09/05/22 09/05/22 09/05/22 Range/Units 20:16 20:17 20:17 WBC (4.8-10.8) X10*3/uL RBC (4.20-5.50) X10*6/uL Hgb (12.0-16.0) g/dl Hct (37.0-47.0) % MCV (80.0-98.0) fL MCH (27.0-33.0) pg MCHC (31.0-35.0) g/dl RDW (11.0-16.0) % Plt Count (160-400) X10*3/uL MPV (9.4-12.3) fL Immature Gran % (Auto) (0.0-0.4) % Neut % (Auto) (45-73) % Lymph % (Auto) (20-40) % [place] % (Auto) (2-11) % Eos % (Auto) (0-4) % Baso % (Auto) (0-2) % Lymph # (Auto) (1.2-4.9) X10*3/uL [place] # (Auto) (0.1-1.2) X10*3/uL Eos # (Auto) (0.0-0.4) X10*3/uL Baso # (Auto) (0.0-0.2) X10*3/uL Abs Immat Gran (auto) (0.00-0.03) X10*3/uL Absolute Neuts (auto) (2.0-8.3) x10*3/uL Absolute Nucleated RBC (0.0-0.012) X10*3/uL Nucleated RBC % (auto) (0.0-0.2) /100WBC Sodium (135-145) mmol/L Potassium (3.3-5.1) mmol/L Chloride (96-108) mmol/L Carbon Dioxide (22-29) mmol/L Anion Gap (12-20) BUN (9-16) mg/dL Creatinine (0.5-1.4) mg/dL Estim Creat Clear Calc Estimated GFR Random Glucose (60-115) mg/dL Calcium (8.4-10.2) mg/dL Total Bilirubin (0.0-1.0) mg/dL AST (5-31) U/L ALT (0-31) U/L Alkaline Phosphatase (39-117) U/L Total Protein (6.5-8.0) g/dL Albumin (3.5-5.0) g/dL Urine Color Yellow Urine Appearance Clear Urine pH 6.5 (5.0-9.0) Ur Specific [place] <= 1.005 (1.005-1.025) Urine Protein Negative (Neg-Trace) mg/dL Urine Glucose (UA) Negative (Negative) mg/dL Urine Ketones Negative (Negative) mg/dL Urine Blood Negative (Negative) Urine Nitrite Negative (Negative) Ur Leukocyte Esterase Trace H (Negative) Urine RBC 0-2 (0-2) /HPF Urine WBC 0-5 (0-5) /HPF Ur Squamous Epith Cells 3-5 (0-2) /HPF Urine Bacteria None Seen (None Seen) Hyaline Casts 0-2 (0-2) /LPF Urine Test NEGATIVE (NEGATIVE) Salicylates (15-30) mg/dL Urine Opiates Screen Not Detected (Not Detect) Urine Fentanyl Screen Not Detected (Not Detect) Acetaminophen (<30) mcg/mL Ur Barbiturates Screen Not Detected (Not Detect) Ur Phencyclidine Scrn Not Detected (Not Detect) Ur Amphetamines Screen Not Detected (Not Detect) U Benzodiazepines Scrn Not Detected (Not Detect) Urine Cocaine Screen Not Detected (Not Detect) U Marijuana (THC) Screen Not Detected (Not Detect) COVID-19 (NICK) (Negative) COVID-19 Clin Com Discharge Plan Discharge Clinical Impression: Auditory hallucinations, Depression, Borderline personality disorder Patient Disposition: Still a Patient Prescriptions: No Action metformin 500 mg tablet 1 tab PO BID atorvastatin 10 mg tablet 10 mg PO DAILY montelukast 10 mg tablet 1 tab PO BEDTIME benztropine 1 mg tablet 1 mg PO BID chlorpromazine 25 mg tablet 1 tab PO TID nicotine (polacrilex) 4 mg gum 1 ea PO Q2H PRN (Reason: Smoking Cessation) lisinopril 5 mg tablet 1 tab PO DAILY fluoxetine 20 mg capsule 60 mg PO DAILY prazosin 1 mg Capsule 4 mg PO BEDTIME 30 Days Qty: 120 0RF Protocol: Hold for SBP< HOLD for SBP < : 90 fluphenazine HCl 5 mg tablet 1 tab PO BEDTIME
[2022-09-05 19:17] VITALS: BP 129/78; PULSE 90; RESP 17; TEMP 36.7; O2SAT 94
[2022-09-05 19:48] LABS: COVID-19 Test Negative (Negative); IDNOW Serial# BCCEAD1C
[2022-09-05 20:12] LABS: MANUAL DIFF FLAG NO
[2022-09-05 20:14] LABS: Basophils Percent Auto 0.3 % (0-2); Eosinophils Absolute Auto 0.4 X10*3/uL (0.0-0.4); Eosinophils Percent Auto 4.1 % (0-4); Hematocrit 32.7 % (37.0-47.0); Hemoglobin 10.3 g/dl (12.0-16.0); Imm Gran Abs Auto 0.03 X10*3/uL (0.00-0.03); Imm Gran Pct Auto 0.3 % (0.0-0.4); Lymphocytes Percent Auto 22.5 % (20-40); Mean Corpuscular HGB Conc 31.5 g/dl (31.0-35.0); Mean Corpuscular Hemoglobin 26.9 pg (27.0-33.0); Mean Corpuscular Volume 85.4 fL (80.0-98.0); Mean Platelet Volume 9.9 fL (9.4-12.3); Monocytes Absolute Auto 0.7 X10*3/uL (0.1-1.2); Neutrophils Absolute Auto 5.7 x10*3/uL (2.0-8.3); Neutrophils Percent Auto 64.8 % (45-73); Platelet Count 281 X10*3/uL (160-400); Red Blood Count 3.83 X10*6/uL (4.20-5.50); Red Cell Distribution Width 14.5 % (11.0-16.0); White Blood Count 8.8 X10*3/uL (4.8-10.8)
[2022-09-05 20:29] LABS: Acetaminophen LAB < 1 mcg/mL (<30); Alanine Aminotransferase 13 U/L (0-31); Albumin Level 4.4 g/dL (3.5-5.0); Alkaline Phosphatase 106 U/L (39-117); Anion Gap 14 (12-20); Aspartate Amino Transferase 14 U/L (5-31); Bilirubin Total 0.2 mg/dL (0.0-1.0); Blood Urea Nitrogen 12 mg/dL (9-16); Carbon Dioxide 25 mmol/L (22-29); Chloride 105 mmol/L (96-108); Creatinine Clr Calc Pharmacy 112.2; Estimated Glomerular Filt Rate > 60; Glucose Random 89 mg/dL (60-115); Potassium 4.1 mmol/L (3.3-5.1); Salicylate < 5.0 mg/dL (15-30); Sodium 140 mmol/L (135-145)
[2022-09-05 20:42] LABS: Amphetamine Screen Urine Not Detected (Not Detect); Barbiturates, Urine Not Detected (Not Detect); Benzodiazepines Screen Urine Not Detected (Not Detect); Cannabinoid Screen Urine Not Detected (Not Detect); Cocaine Screen Urine Not Detected (Not Detect); Fentanyl, urine Not Detected (Not Detect); Opiate Screen Urine Not Detected (Not Detect); Phencyclidine Screen Urine Not Detected (Not Detect)
[2022-09-05 20:43] LABS: Appearance Urine Clear; Color Urine Yellow; Glucose Urine UA Negative (Negative); Leukocyte Esterase Urine Trace (Negative); Nitrite Urine Negative (Negative); PH 6.5 (5.0-9.0); Specific Gravity - Urine <= 1.005 (1.005-1.025); UMIC TRIGGER UA YES; Urine Blood Negative (Negative); Urine Ketones Negative (Negative); Urine Protein Negative (Neg-Trace)
[2022-09-05 20:44] LABS: UPreg QC Valid YES; Urine Pregnancy NEGATIVE (NEGATIVE)
[2022-09-05 20:55] LABS: Bacteria Urine None Seen (None Seen); Hyaline Casts Urine 0-2 /LPF (0-2); RBC Urine 0-2 /HPF (0-2); WBC Urine 0-5 /HPF (0-5)
[2022-09-06 00:51] VITALS: BP 121/79; PULSE 84; RESP 16; TEMP 36.8; O2SAT 96
--- NOTE | 2022-09-06 06:02 | PC.NURSE ---
Patient slept through the night, no distress observed/reported, behavior non concerning at this time, [facility] referral completed/confirmed/pending ETA, med rec completed/pending provider's approval, VSS, will continue to monitor.
--- NOTE | 2022-09-06 08:27 | PC.NURSE ---
Jeffrey from care team speaking to pt
[2022-09-06] MEDS: metFORMIN HCl 500 MG TABLET PO (08:38)
[2022-09-06] MEDS: Benztropine Mesylate 1 MG TABLET PO (08:38)
[2022-09-06] MEDS: chlorproMAZINE HCl 25 MG TABLET PO (08:38)
[2022-09-06] MEDS: FLUoxetine HCl 20 MG CAPSULE 60 MG PO (08:38)
[2022-09-06] MEDS: lisinopriL 5 MG TABLET PO (08:38)
[2022-09-06 08:41] VITALS: BP 138/67; PULSE 91; RESP 16; TEMP 36.8; O2SAT 96
--- NOTE | 2022-09-06 10:06 | MHC.CARE ---
Pt?s Care Plan was reviewed. Yesterday, pt was transported to this facility from the community via ambulance with a complaint of audio hallucinations which were telling her to kill herself by either stabbing herself or overdosing on medication.? Pt did not endorse an urge to act on those commands.? Pt reports that she doesn?t know what triggered the voices, but that it has been going on for three days.? Pt said that it may be related to the anniversary of her mother?s , which is coming up tomorrow.? She reports that when she started to feel unsafe, her friend came over, but that didn?t help so she called Coco at [facility], who came out to her twice.? She felt that ?she didn?t know what to do anymore?, so she called EMS.?? Pt is alert and oriented x4 and is assessed for risk by the CARE Team in room 7 of the Behavioral Health Pod of the ED to determine risk.? Pt has an extensive hx of inpt hospitalizations and is known to engage in unsafe behavior when decompensated.? Past documented hx of major depressive d/o, PTSD, and Borderline personality d/o.? Pt has a hx of self-harm and suicide attempts.? Pt reports feeling better today and that she now feels safe.? She willingly discussed her coping skills and contributed to making a safety plan for today.? She was engaged, laughing, and is looking forward to hanging out with her friend Ravi today.? Pt agreed that if she feels triggered she will call Coco from [facility] and try watching a [place] movie at home to de-escalate herself. The plan is for the pt to be discharged to the correction.? The correction arranged transportation, as she is out of her allotted rides for the month.? The disposition was discussed and agreed upon by ED provider TIMI Faria, and the CARE Team. Msg was left for the correction.? Follow up call will be made at 4pm.
--- NOTE | 2022-09-06 11:47 | MHC.CARE ---
CARE Team meets with pt in the ED waiting area. Pt has been waiting for a ride since discharge. Pt is out of hospital provided [employer] for this month and has exhausted her personal Lyft card as well. Pt's [facility] is attempting to locate additional personnel to provide transport back. CARE Team and pt discuss interventions that she could employ tomorrow, distractions etc as she has noted that Thanksgiving is a difficult time for her as she found her Mother on Thanksgiving many years ago. She discussed that the next three months will be challenging for her. She continues to feel safe to go home. Pt has requested a check in call tomorrow
--- NOTE | 2022-09-07 18:38 | MHC.CARE ---
Care Team left a voice message. Purpose of call was to follow up with pt.
--- NOTE | 2022-09-07 18:40 | MHC.CARE ---
Care Team had a telephonic encounter with [facility] staff member Libby and she reported pt is not currently at the program as she is with her friend up the street. She reported pt will return to the program around 8 pm for medication then will return to her friend's home for a sleepover. Care Team will follow up with pt tomorrow.
--- NOTE | 2022-09-08 18:38 | MHC.CARE ---
Care Team left a voice message. Purpose of call was to follow up with pt.
== END 2022-09-06 09:33 | disposition home or self-care (01) ==
PROVIDERS: Emergency Provider Emergency Medicine
DX: R44.0 Auditory hallucinations (principal); F31.81 Bipolar II disorder; F60.3 Borderline personality disorder; R45.851 Suicidal ideations; Z20.822 Contact with and (suspected) exposure to COVID-19; F41.9 Anxiety disorder, unspecified; E11.9 Type 2 diabetes mellitus without complications; E78.5 Hyperlipidemia, unspecified; F17.210 Nicotine dependence, cigarettes, uncomplicated; Z91.52 Personal history of nonsuicidal self-harm; Z79.02 Long term (current) use of antithrombotics/antiplatelets; Z79.84 Long term (current) use of oral hypoglycemic drugs; Z79.899 Other long term (current) drug therapy
CPT/HCPCS: 36415; 80053; 80143; 80179; 80307; 81001; 81025; 85025; 87635; 99284

== ENCOUNTER 2022-09-09 17:38 | Emergency (ER) | payer MEDICARE, MEDICAID, SELFPAY ==
[2022-09-09 17:40] VITALS: BP 180/112; PULSE 120; O2SAT 100; BMI 39.0
--- NOTE | 2022-09-09 17:41 | ED.PSYCH ---
HPI - Psych General Chief Complaint: Psychiatric Symptoms <Rosario Murry NP - Last Filed: 09/10/22 02:14> Stated Complaint: Crisis SI <Rosario Murry NP - Last Filed: 09/10/22 02:14> Source: patient and EMS <Rosario Murry NP - Last Filed: 09/10/22 02:14> Mode of arrival: EMS <Rosario Murry NP - Last Filed: 09/10/22 02:14> Limitations: no limitations <Rosario Murry NP - Last Filed: 09/10/22 02:14> History of Present Illness HPI Narrative: 46-year-old female presents via EMS for auditory hallucinations with suicidal ideation, anxiety, and plan to overdose on Tylenol. Patient also has multiple self-inflicted superficial abrasions to the left forearm. <Rosario Murry NP - Last Filed: 09/10/22 02:14> MD complaint: suicidal ideation, feels depressed, anxiety and hallucinations <Rosario Murry NP - Last Filed: 09/10/22 02:14> Onset (ago): year(s) <Rosario Murry NP - Last Filed: 09/10/22 02:14> Duration: constant <Rosario Murry NP - Last Filed: 09/10/22 02:14> History of same: Yes <Rosario Murry NP - Last Filed: 09/10/22 02:14> Relieving factors: none <Rosario Murry NP - Last Filed: 09/10/22 02:14> Associated psychiatric symptoms: depression, suicidal ideation and auditory hallucinations <Rosario Murry NP - Last Filed: 09/10/22 02:14> If self harm: admits thoughts of self harm, has plan, has acted on plan and self-inflicted trauma <Rosario Murry NP - Last Filed: 09/10/22 02:14> Related Data Home Medications: Home Medications Medication Instructions Recorded Confirmed atorvastatin 10 mg tablet 10 mg PO DAILY 05/29/21 09/09/22 metformin 500 mg tablet 1 tab PO BID 05/29/21 09/09/22 montelukast 10 mg tablet 1 tab PO BEDTIME 05/29/21 09/09/22 benztropine 1 mg tablet 1 mg PO BID 12/26/21 09/09/22 fluphenazine HCl 5 mg tablet 1 tab PO BEDTIME 03/19/22 09/09/22 chlorpromazine 25 mg tablet 1 tab PO TID 06/17/22 09/09/22 fluoxetine 20 mg capsule 60 mg PO DAILY 07/30/22 09/09/22 lisinopril 5 mg tablet 1 tab PO DAILY 07/30/22 09/09/22 nicotine (polacrilex) 4 mg gum 1 ea PO Q2H PRN Smoking Cessation 07/30/22 09/09/22 Previous Rx's Medication Instructions Recorded prazosin 1 mg capsule 4 mg PO BEDTIME 30 days #120 caps 10/18/21 nitrofurantoin 100 mg PO Q12H 7 days #14 caps 09/07/22 monohydrate/macrocrystals 100 mg capsule (Macrobid) nitrofurantoin 100 mg PO Q12H 5 days #10 caps 09/10/22 monohydrate/macrocrystals 100 mg capsule (Macrobid) <Rosario Murry NP - Last Filed: 09/10/22 02:14> Allergies/Adverse Reactions: Allergies Allergy/AdvReac Type Severity Reaction Status Date / Time Fish Containing Products Allergy Severe ANAPHYLAXIS Verified 08/29/22 12:26 codeine [Codeine] Allergy Intermediate RASH Verified 08/29/22 12:26 Penicillins Allergy Intermediate RASH Verified 08/29/22 12:26 prednisone [Prednisone] Allergy Intermediate RASH Verified 08/29/22 12:26 Sulfa (Sulfonamide Allergy Intermediate RASH Verified 08/29/22 12:26 Antibiotics) [Sulfa (Sulfonamides)] azithromycin [AZITHROMYCIN] AdvReac Severe RASH Verified 08/29/22 12:26 ziprasidone [From Geodon] AdvReac Intermediate dysuria, Verified 08/29/22 12:26 rash <Rosario Murry NP - Last Filed: 09/10/22 02:14> Review of Systems Review of Systems: Constitutional: No Fever, No Chills ENT/Mouth: No Ear Pain, No Nasal Congestion, No sore throat Eyes: No Eye Pain, No Swelling, No Redness Cardiovascular: No Chest Pain, No SOB Respiratory: No Cough, No Sputum, No Dyspnea Gastrointestinal: No Nausea, No Vomiting, No Diarrhea, No Hematochezia, No Melena Genitourinary: No Dysuria, No Urinary Frequency, No Hematuria Musculoskeletal: No Myalgias Skin: No Skin Lesions, No rash Neuro: No Weakness, No Numbness, No Paresthesias, No Dizziness, No Headache Psych: positive Anxiety, positive Depression, positive SI, positive auditory hallucinations Heme/Lymph: No Lymphadenopathy Endocrine: No Polyuria, No Polydipsia <Rosario Murry NP - Last Filed: 09/10/22 02:14> Yes all other systems are reviewed and are negative <Rosario Murry NP - Last Filed: 09/10/22 02:14> PMFSH Past Medical History Attestation statement: The following information was validated with the patient. <Rosario Murry NP - Last Filed: 09/10/22 02:14> Source: old records reviewed <Rosario Murry NP - Last Filed: 09/10/22 02:14> Medical History: Medical History Acetaminophen overdose Borderline personality disorder Bronchitis Depression Diabetes type 2, controlled Full body hives GERD (gastroesophageal reflux disease) History of attempted suicide History of non-suicidal self-harm Hyperlipidemia Hypomagnesemia Major depression MDD (major depressive disorder), recurrent episode, severe Mood disorder Overdose PTSD (post-traumatic stress disorder) Suicide attempt Suicide attempt by acetaminophen overdose <Rosario Murry NP - Last Filed: 09/10/22 02:14> Social History Social History: Social History Household Members: Other Household Members Other:: longterm Housing: Other Housing Other:: longterm Do you presently have visiting nurse or other home services: No Unable to assess alcohol history related to: Unknown Alcohol intake: unknown Patient Tobacco Use Status: Current everyday Tobacco user Tobacco use type: Cigarette Cigarette Packs Per Day: 1 Cigarettes Per Day: 16 Years Smoked: 20 Smoked in Last 30 Days: No e-Cigarette/Vaping Use: Never Used Use of substances other than those prescribed or required for medical reasons: No Substance Use Type: Marijuana Advance Directives: No Advance Directives Information Provided: No service: No Current occupational status: unemployed and disabled Sexual orientation: Don't Know <Rosario Murry NP - Last Filed: 09/10/22 02:14> Physical Exam Vital Signs: Vital Signs: Last Vital Signs Temp 97.6 F 09/10/22 08:25 Pulse 108 H 09/10/22 08:25 Resp 16 09/10/22 08:25 BP 157/101 H 09/10/22 08:25 Pulse Ox 97 09/10/22 08:25 O2 Del Method 09/10/22 08:25 BMI result Body Mass Index 39.0 <Rosario Murry NP - Last Filed: 09/10/22 02:14> Vital Signs: Last Vital Signs Temp 97.6 F 09/10/22 08:25 Pulse 108 H 09/10/22 08:25 Resp 16 09/10/22 08:25 BP 157/101 H 09/10/22 08:25 Pulse Ox 97 09/10/22 08:25 O2 Del Method 09/10/22 08:25 BMI result Body Mass Index 39.0 <Sy Allison MD - Last Filed: 09/10/22 09:36> Appearance: Alert. Oriented X3. Moderate emotional distress. Eyes: Pupils equal, round and reactive to light. Sclera nonicteric. ENT: Pharynx normal. Neck: Normal inspection. Neck supple. CVS: Normal heart rate and rhythm. Pulses normal. Respiratory: No respiratory distress. Breath sounds normal. Abdomen: Soft and nontender. Skin: Multiple superficial self-inflicted abrasions to the forearms. Numerous healed scars Extremities: No lower extremity edema. Gait well-balanced well coordinated. Neuro: No motor deficit. No sensory deficit. Cranial nerves 2-12 intact. <Rosario Murry NP - Last Filed: 09/10/22 02:14> Course Course Course Narrative: 46-year-old female presents for suicidal ideation and anxiety. This is her 10th visit this month, has had 40 visits in the past 3 and half months. Patient states to be anxious, has auditory hallucinations encouraging her to overdose on Tylenol. She has multiple superficial self-inflicted abrasions to her forearms and abdomen. Will follow patient's care plan, order Tylenol level, TORRES, urinalysis as she is on nitrofurantoin for UTI. Care team consult pending. 18:20 care team consult complete. Plan of care is to re-evaluate in the morning. Physician observation started at this time. <Rosario Murry NP - Last Filed: 09/10/22 02:14> Reevaluation(s) Reevaluation #1: 46-year-old female presented with her typical presentation of feeling suicidal, patient overnight has no events reported by nurses, repeat vital signs appear stable, patient declined any SI or HI at the moment, was evaluated by N and is okay to discharge. <Sy Allison MD - Last Filed: 09/10/22 09:36> Time: 09:36 <Sy Allison MD - Last Filed: 09/10/22 09:36> Medications Administered Generic Name Dose Route Start Last Admin Trade Name Freq PRN Reason Stop Dose Admin Atorvastatin Calcium 10 mg 09/09/22 18:15 09/10/22 08:33 Atorvastatin Calcium 10 Mg Tablet PO 10 mg DAILY YULY Administration Benztropine Mesylate 1 mg 09/09/22 21:00 09/10/22 08:32 Benztropine Mesylate 1 Mg Tablet PO 1 mg BID YULY Administration Chlorpromazine HCl 25 mg 09/09/22 21:00 09/10/22 08:33 Chlorpromazine Hcl 25 Mg Tablet PO 25 mg TID YULY Administration Fluoxetine HCl 60 mg 09/10/22 09:00 09/10/22 08:33 Fluoxetine Hcl 20 Mg Capsule PO 60 mg DAILY YULY Administration Fluphenazine HCl 5 mg 09/09/22 21:00 09/09/22 20:03 Fluphenazine Hcl 5 Mg Tablet PO 5 mg BEDTIME YULY Administration Lisinopril 5 mg 09/10/22 09:00 09/10/22 08:33 Lisinopril 5 Mg Tablet PO 5 mg DAILY YULY Administration Protocol Metformin HCl 500 mg 09/09/22 21:00 09/10/22 08:32 Metformin Hcl 500 Mg Tablet PO 500 mg BID YULY Administration Montelukast Sodium 10 mg 09/09/22 21:00 09/09/22 20:04 Montelukast Sodium 10 Mg Tablet PO 10 mg BEDTIME YULY Administration Nitrofurantoin Macrocrystals 100 mg 09/09/22 18:15 09/10/22 06:19 Nitrofurantoin Monohyd/M-Cryst 100 Mg Capsule PO Not Given Q12H YULY Prazosin HCl 4 mg 09/09/22 21:00 09/09/22 20:04 Prazosin Hcl 1 Mg Capsule PO 4 mg BEDTIME YULY Administration Protocol Discontinued Medications Generic Name Dose Route Start Last Admin Trade Name Elmer PRN Reason Stop Dose Admin Lorazepam 2 mg 09/09/22 17:44 09/09/22 17:47 Lorazepam 1 Mg Tablet PO 09/09/22 17:45 2 mg ONCE ONE Administration Nitrofurantoin Macrocrystals 100 mg 09/10/22 02:09 09/10/22 03:14 Nitrofurantoin Monohyd/M-Cryst 100 Mg Capsule PO 09/10/22 02:10 100 mg ONCE ONE Administration <Rosario Murry DOCUMENT CONTROL ASSISTANT - Last Filed: 09/10/22 02:14> Medications Administered Generic Name Dose Route Start Last Admin Trade Name Elmer PRN Reason Stop Dose Admin Atorvastatin Calcium 10 mg 09/09/22 18:15 09/10/22 08:33 Atorvastatin Calcium 10 Mg Tablet PO 10 mg DAILY YULY Administration Benztropine Mesylate 1 mg 09/09/22 21:00 09/10/22 08:32 Benztropine Mesylate 1 Mg Tablet PO 1 mg BID YULY Administration Chlorpromazine HCl 25 mg 09/09/22 21:00 09/10/22 08:33 Chlorpromazine Hcl 25 Mg Tablet PO 25 mg TID YULY Administration Fluoxetine HCl 60 mg 09/10/22 09:00 09/10/22 08:33 Fluoxetine Hcl 20 Mg Capsule PO 60 mg DAILY YULY Administration Fluphenazine HCl 5 mg 09/09/22 21:00 09/09/22 20:03 Fluphenazine Hcl 5 Mg Tablet PO 5 mg BEDTIME YULY Administration Lisinopril 5 mg 09/10/22 09:00 09/10/22 08:33 Lisinopril 5 Mg Tablet PO 5 mg DAILY YULY Administration Protocol Metformin HCl 500 mg 09/09/22 21:00 09/10/22 08:32 Metformin Hcl 500 Mg Tablet PO 500 mg BID YULY Administration Montelukast Sodium 10 mg 09/09/22 21:00 09/09/22 20:04 Montelukast Sodium 10 Mg Tablet PO 10 mg BEDTIME YULY Administration Nitrofurantoin Macrocrystals 100 mg 09/09/22 18:15 09/10/22 06:19 Nitrofurantoin Monohyd/M-Cryst 100 Mg Capsule PO Not Given Q12H YULY Prazosin HCl 4 mg 09/09/22 21:00 09/09/22 20:04 Prazosin Hcl 1 Mg Capsule PO 4 mg BEDTIME YULY Administration Protocol Discontinued Medications Generic Name Dose Route Start Last Admin Trade Name Elmer PRN Reason Stop Dose Admin Lorazepam 2 mg 09/09/22 17:44 09/09/22 17:47 Lorazepam 1 Mg Tablet PO 09/09/22 17:45 2 mg ONCE ONE Administration Nitrofurantoin Macrocrystals 100 mg 09/10/22 02:09 09/10/22 03:14 Nitrofurantoin Monohyd/M-Cryst 100 Mg Capsule PO 09/10/22 02:10 100 mg ONCE ONE Administration <Sy Allison MD - Last Filed: 09/10/22 09:36> MDM - Psych Differential Diagnosis Differential diagnosis: Likely acute psychosis, suicidal ideation, bipolar disorder and acute anxiety <Rosario Murry NP - Last Filed: 09/10/22 02:14> Medical Records Attestation: I reviewed the patient's medical records. <Rosario Murry NP - Last Filed: 09/10/22 02:14> Lab Data Attestation: I reviewed the patient's lab results. <Rosario Murry NP - Last Filed: 09/10/22 02:14> Labs: Lab Results 09/09/22 09/09/22 09/09/22 Range/Units 18:07 18:07 18:15 Urine Color Urine Appearance Urine pH (5.0-9.0) Ur Specific [place] (1.005-1.025) Urine Protein (Neg-Trace) mg/dL Urine Glucose (UA) (Negative) mg/dL Urine Ketones (Negative) mg/dL Urine Blood (Negative) Urine Nitrite (Negative) Ur Leukocyte Esterase (Negative) Urine RBC (0-2) /HPF Urine WBC (0-5) /HPF Ur Squamous Epith Cells (0-2) /HPF Urine Bacteria (None Seen) Hyaline Casts (0-2) /LPF Urine Opiates Screen Not Detected (Not Detect) Urine Fentanyl Screen Not Detected (Not Detect) Acetaminophen 1 (<30) mcg/mL Ur Barbiturates Screen Not Detected (Not Detect) Ur Phencyclidine Scrn Not Detected (Not Detect) Ur Amphetamines Screen Not Detected (Not Detect) U Benzodiazepines Scrn Not Detected (Not Detect) Urine Cocaine Screen Not Detected (Not Detect) U Marijuana (THC) Screen Not Detected (Not Detect) COVID-19 (NICK) Negative (Negative) COVID-19 Clin Com See Note 09/09/22 Range/Units 18:15 Urine Color Yellow Urine Appearance Clear Urine pH 5.5 (5.0-9.0) Ur Specific [place] 1.010 (1.005-1.025) Urine Protein Negative (Neg-Trace) mg/dL Urine Glucose (UA) Negative (Negative) mg/dL Urine Ketones Negative (Negative) mg/dL Urine Blood Negative (Negative) Urine Nitrite Negative (Negative) Ur Leukocyte Esterase Trace H (Negative) Urine RBC 0-2 (0-2) /HPF Urine WBC 0-5 (0-5) /HPF Ur Squamous Epith Cells 0-2 (0-2) /HPF Urine Bacteria Trace (None Seen) Hyaline Casts 0-2 (0-2) /LPF Urine Opiates Screen (Not Detect) Urine Fentanyl Screen (Not Detect) Acetaminophen (<30) mcg/mL Ur Barbiturates Screen (Not Detect) Ur Phencyclidine Scrn (Not Detect) Ur Amphetamines Screen (Not Detect) U Benzodiazepines Scrn (Not Detect) Urine Cocaine Screen (Not Detect) U Marijuana (THC) Screen (Not Detect) COVID-19 (NICK) (Negative) COVID-19 Clin Com <Rosario Murry NP - Last Filed: 09/10/22 02:14> Lab Results 09/09/22 09/09/22 09/09/22 Range/Units 18:07 18:07 18:15 Urine Color Urine Appearance Urine pH (5.0-9.0) Ur Specific [place] (1.005-1.025) Urine Protein (Neg-Trace) mg/dL Urine Glucose (UA) (Negative) mg/dL Urine Ketones (Negative) mg/dL Urine Blood (Negative) Urine Nitrite (Negative) Ur Leukocyte Esterase (Negative) Urine RBC (0-2) /HPF Urine WBC (0-5) /HPF Ur Squamous Epith Cells (0-2) /HPF Urine Bacteria (None Seen) Hyaline Casts (0-2) /LPF Urine Opiates Screen Not Detected (Not Detect) Urine Fentanyl Screen Not Detected (Not Detect) Acetaminophen 1 (<30) mcg/mL Ur Barbiturates Screen Not Detected (Not Detect) Ur Phencyclidine Scrn Not Detected (Not Detect) Ur Amphetamines Screen Not Detected (Not Detect) U Benzodiazepines Scrn Not Detected (Not Detect) Urine Cocaine Screen Not Detected (Not Detect) U Marijuana (THC) Screen Not Detected (Not Detect) COVID-19 (NICK) Negative (Negative) COVID-19 Clin Com See Note 09/09/22 Range/Units 18:15 Urine Color Yellow Urine Appearance Clear Urine pH 5.5 (5.0-9.0) Ur Specific [place] 1.010 (1.005-1.025) Urine Protein Negative (Neg-Trace) mg/dL Urine Glucose (UA) Negative (Negative) mg/dL Urine Ketones Negative (Negative) mg/dL Urine Blood Negative (Negative) Urine Nitrite Negative (Negative) Ur Leukocyte Esterase Trace H (Negative) Urine RBC 0-2 (0-2) /HPF Urine WBC 0-5 (0-5) /HPF Ur Squamous Epith Cells 0-2 (0-2) /HPF Urine Bacteria Trace (None Seen) Hyaline Casts 0-2 (0-2) /LPF Urine Opiates Screen (Not Detect) Urine Fentanyl Screen (Not Detect) Acetaminophen (<30) mcg/mL Ur Barbiturates Screen (Not Detect) Ur Phencyclidine Scrn (Not Detect) Ur Amphetamines Screen (Not Detect) U Benzodiazepines Scrn (Not Detect) Urine Cocaine Screen (Not Detect) U Marijuana (THC) Screen (Not Detect) COVID-19 (NICK) (Negative) COVID-19 Clin Com <Sy Allison MD - Last Filed: 09/10/22 09:36> Discharge Plan Discharge Clinical Impression: UTI (urinary tract infection), Depression, Acute anxiety <Rosario Murry NP - Last Filed: 09/10/22 02:14> Patient Disposition: Home, Self-Care <Rosario Murry NP - Last Filed: 09/10/22 02:14> Instructions: Urinary Tract Infection in Women (ED), Depression (ED), Anxiety (ED) <Rosario Murry NP - Last Filed: 09/10/22 02:14> Additional Instructions: Follow-up with outpatient psychiatry. We are treating you for UTI. Please take Macrobid 100 mg twice a day for the next 5 days. Thank you for choosing this emergency department for evaluation. Please follow-up with primary care physician as needed. Return to the emergency department for any new, concerning, or worsening symptoms. <Rosario Murry NP - Last Filed: 09/10/22 02:14> Prescriptions: New nitrofurantoin monohyd/m-cryst [Macrobid] 100 mg capsule 100 mg PO Q12H 5 Days Qty: 10 0RF Rx Instructions: must administer with a meal/food No Action metformin 500 mg tablet 1 tab PO BID atorvastatin 10 mg tablet 10 mg PO DAILY montelukast 10 mg tablet 1 tab PO BEDTIME benztropine 1 mg tablet 1 mg PO BID chlorpromazine 25 mg tablet 1 tab PO TID nicotine (polacrilex) 4 mg gum 1 ea PO Q2H PRN (Reason: Smoking Cessation) lisinopril 5 mg tablet 1 tab PO DAILY fluoxetine 20 mg capsule 60 mg PO DAILY nitrofurantoin monohyd/m-cryst [Macrobid] 100 mg capsule 100 mg PO Q12H 7 Days Qty: 14 0RF Rx Instructions: must administer with a meal/food prazosin 1 mg Capsule 4 mg PO BEDTIME 30 Days Qty: 120 0RF Protocol: Hold for SBP< HOLD for SBP < : 90 fluphenazine HCl 5 mg tablet 1 tab PO BEDTIME <Rosario Murry NP - Last Filed: 09/10/22 02:14> Interventions: Weber-Suicide Risk Severity Scale Last Done: 09/10/22 06:08 <Rosario Murry NP - Last Filed: 09/10/22 02:14>
[2022-09-09] MEDS: LORazepam 1 MG TABLET 2 MG PO (17:47)
[2022-09-09 17:49] VITALS: BP 153/96; PULSE 116; RESP 16; TEMP 36.1; O2SAT 96
--- NOTE | 2022-09-09 17:51 | PC.NURSE ---
Pt arrives by [facility] voluntary for SI w/ plan to OD. Reports Auditory hallucination. Pt reports self harm today w/ barrette clip that she broke. Bleeding controlled. Medicated with PO ativan upon arrival. Pt is tearful and pacing. Requesting to be moved to [facility] rather than in room w/ closed door.
--- NOTE | 2022-09-09 18:22 | MHC.CARE ---
Care Team met with pt for a risk assessment after presenting to [facility] [place] [place] ED with chief complaint of SI. Pt appeared to be distraught. Pt began to cry and sat on the floor to bang her head against the board . Pt was guided to Pod 7 where she met with this senior underwriter. Pt eye contact was intermittent and speech was WNL for volume and tone. Pt was rocking back and forth. Pt reported feeling suicidal due to the voices telling her to self harm or overdose. Pt stated she see her father and mother. Pt stated the voice started this morning while watching a movie with her friend April. Pt reported she left to speak with staff as the voice were getting uncontrollable and they tried to talk her out of it, however, pt went down stairs and started to self harm (pt pointed towards her left arm) by using a hair barrette. Pt denied HI and reported SI with plan to overdose and AVH. Pt self advocated to stay overnight at the Pod as she feels unsafe. Care Team had a telephonic encounter with [facility] staff Arboleda and he reported he does not have any concerns. Disposition discussed with Rosario CAPELLAN. Pt will remain in the ED to be reassessed in the morning.
[2022-09-09 18:28] LABS: COVID-19 Test Negative (Negative)
[2022-09-09 18:29] LABS: Acetaminophen LAB 1 mcg/mL (<30)
[2022-09-09 18:30] LABS: Amphetamine Screen Urine Not Detected (Not Detect); Barbiturates, Urine Not Detected (Not Detect); Benzodiazepines Screen Urine Not Detected (Not Detect); Cannabinoid Screen Urine Not Detected (Not Detect); Cocaine Screen Urine Not Detected (Not Detect); Fentanyl, urine Not Detected (Not Detect); Opiate Screen Urine Not Detected (Not Detect); Phencyclidine Screen Urine Not Detected (Not Detect)
[2022-09-09 18:40] LABS: Appearance Urine Clear; Color Urine Yellow; Glucose Urine UA Negative (Negative); Leukocyte Esterase Urine Trace (Negative); Nitrite Urine Negative (Negative); PH 5.5 (5.0-9.0); UMIC TRIGGER UACC YES; Urine Blood Negative (Negative); Urine Ketones Negative (Negative); Urine Protein Negative (Neg-Trace)
[2022-09-09 18:42] LABS: Bacteria Urine Trace (None Seen); Hyaline Casts Urine 0-2 /LPF (0-2); RBC Urine 0-2 /HPF (0-2); Squamous Epithelial Cell Urine 0-2 /HPF (0-2); WBC Urine 0-5 /HPF (0-5)
[2022-09-09 20:00] VITALS: BP 135/84; PULSE 95; RESP 17; O2SAT 95
[2022-09-09] MEDS: chlorproMAZINE HCl 25 MG TABLET PO (20:03)
[2022-09-09] MEDS: fluPHENAZine HCl 5 MG TABLET PO (20:03)
[2022-09-09] MEDS: Benztropine Mesylate 1 MG TABLET PO (20:04)
[2022-09-09] MEDS: Montelukast Sodium 10 MG TABLET PO (20:04)
[2022-09-09] MEDS: Prazosin HCL 1 MG CAPSULE 4 MG PO (20:04)
[2022-09-09] MEDS: metFORMIN HCl 500 MG TABLET PO (20:04)
[2022-09-09] MEDS: Nitrofurantoin Monohyd/M-Cryst 100 MG CAPSULE PO (20:04)
[2022-09-10] MEDS: Nitrofurantoin Monohyd/M-Cryst 100 MG CAPSULE PO (03:14)
--- NOTE | 2022-09-10 06:09 | PC.NURSE ---
Patient slept through the night, no distress observed/reported, behavior non concerning and in good control, disposition per care team is SAMIRA follow up in the morning, medication compliant, patient is + for UTI, Macrobid 100 mg Q 12 hours started, first dose administered during overnight shift, VSS, will continue to monitor.
[2022-09-10 08:25] VITALS: BP 157/101; PULSE 108; RESP 16; TEMP 36.4; O2SAT 97
[2022-09-10] MEDS: Benztropine Mesylate 1 MG TABLET PO (08:32)
[2022-09-10] MEDS: metFORMIN HCl 500 MG TABLET PO (08:32)
[2022-09-10] MEDS: chlorproMAZINE HCl 25 MG TABLET PO (08:33)
[2022-09-10] MEDS: lisinopriL 5 MG TABLET PO (08:33)
[2022-09-10] MEDS: FLUoxetine HCl 20 MG CAPSULE 60 MG PO (08:33)
[2022-09-10] MEDS: Atorvastatin Calcium 10 MG TABLET PO (08:33)
--- NOTE | 2022-09-10 09:22 | PC.NURSE ---
Per care team d/c to waiting room ok
--- NOTE | 2022-09-10 09:54 | MHC.CARE ---
Pt?s Care Plan was reviewed. Yesterday, pt was transported to this facility from the community via ambulance with a complaint of auditory hallucinations, suicidal ideation, anxiety, and plan to overdose on Tylenol.? Patient presented with multiple self-inflicted superficial abrasions to the left forearm.? Pt had reported on her last visit that the period of time between August and October is a challenging time for her as it is the anniversary of her Mother?s . Pt is alert and oriented x4 and is assessed for risk by the CARE Team in the common area of the Behavioral Health Pod of the ED.? Pt has an extensive hx of inpt hospitalizations and is known to engage in unsafe behavior when decompensated.? Past documented hx of major depressive d/o, PTSD, and Borderline personality d/o.? Pt has a hx of self-harm and suicide attempts.? Pt reports feeling better today and that she now feels safe.? She reports that her voices are at baseline and ?Manageable?.? She denies SI and self-harm urges at this time.? Coping skills and her planned activities for today was discussed.? Pt stated that she plans to visit with her friend ?Jesika? today and watch TV. The plan is for the pt to be discharged to the fdc.? CARE Team has contacted pt?s fdc. Pt is out of Hospital provided [facility] for the month.Pt?s [facility] will collect her.? The disposition was discussed and agreed upon by CARE Team software verification engineer clinician Jose Alejandro MILLER and ED provider Dr. Allison.? ED provider TIMI Faria, and the CARE Team. Follow up call will be made at 4pm.
== END 2022-09-10 09:47 | disposition home or self-care (01) ==
PROVIDERS: Nurse Practitioner Family; Emergency Provider Emergency Medicine
DX: N39.0 Urinary tract infection, site not specified (principal); F31.81 Bipolar II disorder; F41.9 Anxiety disorder, unspecified; R45.851 Suicidal ideations; R44.0 Auditory hallucinations; Z20.822 Contact with and (suspected) exposure to COVID-19; F60.3 Borderline personality disorder; F43.10 Post-traumatic stress disorder, unspecified; E11.9 Type 2 diabetes mellitus without complications; E78.5 Hyperlipidemia, unspecified; F17.210 Nicotine dependence, cigarettes, uncomplicated; Z91.52 Personal history of nonsuicidal self-harm; Z79.02 Long term (current) use of antithrombotics/antiplatelets; Z79.84 Long term (current) use of oral hypoglycemic drugs; Z79.899 Other long term (current) drug therapy
CPT/HCPCS: 80143; 80307; 81001; 87635; 99285

== ENCOUNTER 2022-09-11 13:40 | Emergency (ER) | payer MEDICARE, MEDICAID, SELFPAY ==
[2022-09-11 14:11] VITALS: BP 106/61; PULSE 120; RESP 18; TEMP 36.1; O2SAT 97; BMI 38.2
--- NOTE | 2022-09-11 14:14 | ED.GENADULT ---
HPI - General Adult General Chief complaint: Psychiatric Symptoms <TIMI Cruz - Last Filed: 09/11/22 14:18> Stated complaint: Crisis <TIMI Cruz - Last Filed: 09/11/22 14:18> Time Seen by Provider: 09/11/22 14:52 <TIMI Cruz - Last Filed: 09/11/22 14:18> Source: patient <Henrietta Woody CNP - Last Filed: 09/11/22 23:02> Mode of arrival: ambulatory <Henrietta Woody CNP - Last Filed: 09/11/22 23:02> Limitations: no limitations <Henrietta Woody CNP - Last Filed: 09/11/22 23:02> History of Present Illness HPI narrative: Is a 46-year-old female who presents emergency department for SI in auditory hallucinations. She states that she has been feeling increasingly more anxious since this morning. States she is having auditory hallucinations that are commanding her to burn herself. She does states that she burned her right middle finger with a cigarette but this was accidental she is anxious and tearful at the time of examination. Otherwise she reports no physical complaints. <Henrietta Woody CNP - Last Filed: 09/11/22 23:02> Related Data Home medications: Home Medications Medication Instructions Recorded Confirmed atorvastatin 10 mg tablet 10 mg PO DAILY 05/29/21 09/11/22 metformin 500 mg tablet 1 tab PO BID 05/29/21 09/11/22 montelukast 10 mg tablet 1 tab PO BEDTIME 05/29/21 09/11/22 fluphenazine HCl 5 mg tablet 1 tab PO BEDTIME 03/19/22 09/11/22 chlorpromazine 25 mg tablet 3 tab PO DAILY@1700 06/17/22 09/11/22 fluoxetine 20 mg capsule 60 mg PO DAILY 07/30/22 09/11/22 lisinopril 5 mg tablet 1 tab PO DAILY 07/30/22 09/11/22 nicotine (polacrilex) 4 mg gum 1 ea PO Q2H PRN Smoking Cessation 07/30/22 09/11/22 sennosides 8.6 mg tablet (senna) 8.6 mg PO BEDTIME PRN Constipation 09/11/22 09/11/22 Previous Rx's Medication Instructions Recorded prazosin 1 mg capsule 4 mg PO BEDTIME 30 days #120 caps 10/18/21 nitrofurantoin 100 mg PO Q12H 7 days #14 caps 09/07/22 monohydrate/macrocrystals 100 mg capsule (Macrobid) <TIMI Cruz - Last Filed: 09/11/22 14:18> Allergies/adverse reactions: Allergies Allergy/AdvReac Type Severity Reaction Status Date / Time Fish Containing Products Allergy Severe ANAPHYLAXIS Verified 08/29/22 12:26 codeine [Codeine] Allergy Intermediate RASH Verified 08/29/22 12:26 Penicillins Allergy Intermediate RASH Verified 08/29/22 12:26 prednisone [Prednisone] Allergy Intermediate RASH Verified 08/29/22 12:26 Sulfa (Sulfonamide Allergy Intermediate RASH Verified 08/29/22 12:26 Antibiotics) [Sulfa (Sulfonamides)] azithromycin [AZITHROMYCIN] AdvReac Severe RASH Verified 08/29/22 12:26 ziprasidone [From Geodon] AdvReac Intermediate dysuria, Verified 08/29/22 12:26 rash <TIMI Cruz - Last Filed: 09/11/22 14:18> Review of Systems Review of Systems: Constitutional : No Fever, No Chills ENT/Mouth : No Ear Pain, No Nasal Congestion, No sore throat Eyes: No Eye Pain, No Swelling, No Redness Cardiovascular : No Chest Pain, No SOB Respiratory : No Cough, No Sputum, No Dyspnea Gastrointestinal : No Nausea, No Vomiting, No Diarrhea, No Hematochezia, No Melena Genitourinary : No Dysuria, No Urinary Frequency, No Hematuria Musculoskeletal : No Myalgias Skin : No Skin Lesions, No rash Neuro : No Weakness, No Numbness, No Paresthesias, No Dizziness, No Headache Psych : positive Anxiety, positive Depression, positive SI/HI, positive hallucinations Heme/Lymph: No Lymphadenopathy Endocrine : No Polyuria, No Polydipsia <Henrietta Woody CNP - Last Filed: 09/11/22 23:02> Yes all other systems are reviewed and are negative <Henrietta Woody CNP - Last Filed: 09/11/22 23:02> [facility] Past Medical History Attestation statement: The following information was validated with the patient. <Henrietta Woody CNP - Last Filed: 09/11/22 23:02> Source: old records reviewed <Henrietta Woody CNP - Last Filed: 09/11/22 23:02> Medical History: Medical History Acetaminophen overdose Borderline personality disorder Bronchitis Depression Diabetes type 2, controlled Full body hives GERD (gastroesophageal reflux disease) History of attempted suicide History of non-suicidal self-harm Hyperlipidemia Hypomagnesemia Major depression MDD (major depressive disorder), recurrent episode, severe Mood disorder Overdose PTSD (post-traumatic stress disorder) Suicide attempt Suicide attempt by acetaminophen overdose <TIMI Cruz - Last Filed: 09/11/22 14:18> Social History Social History: Social History Household Members: Other Household Members Other:: [facility] Housing: Other Housing Other:: [facility] Do you presently have visiting nurse or other home services: No Unable to assess alcohol history related to: Unknown Alcohol intake: unknown Patient Tobacco Use Status: Current everyday Tobacco user Tobacco use type: Cigarette Cigarette Packs Per Day: 1 Cigarettes Per Day: 16 Years Smoked: 20 e-Cigarette/Vaping Use: Never Used Substance Use Type: Marijuana Advance Directives: No Advance Directives Information Provided: No Healthcare Proxy: No Guardian: No service: No Current occupational status: unemployed and disabled Sexual orientation: Don't Know <TIMI Cruz - Last Filed: 09/11/22 14:18> Physical Exam ED Vital Signs: Vital Signs - 24 hr 09/11/22 14:11 09/11/22 16:30 09/11/22 20:49 Temperature 97 F 97.1 F 97.8 F Pulse Rate 120 H 101 H 112 H Respiratory Rate 18 18 16 Blood Pressure 106/61 116/66 118/75 Pulse Oximetry 97 99 95 Oxygen Delivery Method Room Air Room Air Room Air 09/12/22 01:30 Temperature 98.4 F Pulse Rate 87 Respiratory Rate 17 Blood Pressure 126/70 Pulse Oximetry 96 Oxygen Delivery Method Room Air BMI result Body Mass Index 38.2 <TIMI Cruz - Last Filed: 09/11/22 14:18> Vital Signs - 24 hr 09/11/22 14:11 09/11/22 16:30 09/11/22 20:49 Temperature 97 F 97.1 F 97.8 F Pulse Rate 120 H 101 H 112 H Respiratory Rate 18 18 16 Blood Pressure 106/61 116/66 118/75 Pulse Oximetry 97 99 95 Oxygen Delivery Method Room Air Room Air Room Air 09/12/22 01:30 Temperature 98.4 F Pulse Rate 87 Respiratory Rate 17 Blood Pressure 126/70 Pulse Oximetry 96 Oxygen Delivery Method Room Air BMI result Body Mass Index 38.2 <Henrietta Woody CNP - Last Filed: 09/11/22 23:02> Vital Signs - 24 hr 09/11/22 14:11 09/11/22 16:30 09/11/22 20:49 Temperature 97 F 97.1 F 97.8 F Pulse Rate 120 H 101 H 112 H Respiratory Rate 18 18 16 Blood Pressure 106/61 116/66 118/75 Pulse Oximetry 97 99 95 Oxygen Delivery Method Room Air Room Air Room Air 09/12/22 01:30 Temperature 98.4 F Pulse Rate 87 Respiratory Rate 17 Blood Pressure 126/70 Pulse Oximetry 96 Oxygen Delivery Method Room Air BMI result Body Mass Index 38.2 <Kingsley Larson MD - Last Filed: 09/12/22 10:26> Appearance: Alert.?Oriented to person, place and time. No acute distress.?Normal affect. Eyes: Pupils equal, round and reactive to light.? ENT: Pharynx normal.?? Neck: Normal inspection.? Neck supple.?? CVS: Heart sounds normal. Tachycardia ? Pulses normal.?? Respiratory: No respiratory distress.? Lung sounds clear to auscultation bilaterally?? Abdomen: Soft and non-tender. Normoactive bowel sounds. ?? Skin: Skin warm and dry.? Normal skin color.? Right middle digit dorsal aspect superficial burn, apears to be healing? Extremities: No lower extremity edema.? Neuro: Moves all extremities spontaneously. Sensation intact bilaterally. CN II-XII intact. No focal neuro deficits. Ambulates with normal steady gait. <Henrietta Woody CNP - Last Filed: 09/11/22 23:02> Course Course Course Narrative: Patient is a 46-year-old female with a past medical history of borderline personality disorder, type 2 diabetes, GERD, HLD, major depression, PTSD presents to the emergency department for evaluation of auditory hallucinations with SI and plan to burn herself. Reports medication compliance. Denies any physical complaints. She is overall well-appearing. Initially tachycardic upon arrival, this is likely secondary to anxiety. She is afebrile without tachypnea or hypoxia. Patient currently 1:1 observation. CBC reveals normocytic anemia consistent with baseline not meeting threshold for transfusion, no leukocytosis. CMP is overall unremarkable. <Henrietta Woody CNP - Last Filed: 09/11/22 23:02> Reevaluation(s) Reevaluation #1: RME: 46 year old female presents w/ si, auditory hallucinations and anxiety since this morning. Plan for SI is to burn herself. Reports she burnned her right middle finger w/ a cigarette. Tearful and anxious. No medical complaints PE: anxious, small burn to right middle finger Plan: labs for medical clearance. Patient si so will bring to the back for 1:1 obs <TIMI Cruz - Last Filed: 09/11/22 14:18> Time: 14:15 <TIMI Cruz - Last Filed: 09/11/22 14:18> Reevaluation #2: Patient placed in physician observation. The reason for observation is that she was evaluated by the care team who was very familiar with her, patient is requesting to go inpatient at this time. Patient is an inpatient bed search. Patient resides in a [facility] setting. She is calm and cooperative. Heart rate has improved. Med reconciliation completed. <Henrietta Woody CNP - Last Filed: 09/11/22 23:02> Time: 17:55 <Henrietta Woody CNP - Last Filed: 09/11/22 23:02> Reevaluation #3: IGOR IS WELL KNOWN TO US SHE IS HERE FOR SI SHE HAS BEEN SEEN BY IN SHE IS INPATIENT LEVEL OF CARE REMAINED HEMODYNAMICALLY STABLE <Kingsley Larson MD - Last Filed: 09/12/22 10:26> Medications Administered Generic Name Dose Route Start Last Admin Trade Name Freq PRN Reason Stop Dose Admin Atorvastatin Calcium 10 mg 09/12/22 09:00 09/12/22 09:58 Atorvastatin Calcium 10 Mg Tablet PO 10 mg DAILY YULY Administration Chlorpromazine HCl 75 mg 09/11/22 17:55 09/11/22 18:46 Chlorpromazine Hcl 25 Mg Tablet PO 75 mg DAILY@1700 YULY Administration Fluoxetine HCl 60 mg 09/12/22 09:00 09/12/22 09:58 Fluoxetine Hcl 20 Mg Capsule PO 60 mg DAILY YULY Administration Fluphenazine HCl 5 mg 09/11/22 21:00 09/11/22 20:42 Fluphenazine Hcl 5 Mg Tablet PO 5 mg BEDTIME YULY Administration Lisinopril 5 mg 09/12/22 09:00 09/12/22 09:58 Lisinopril 5 Mg Tablet PO 5 mg DAILY YULY Administration Protocol Metformin HCl 500 mg 09/11/22 21:00 09/12/22 09:58 Metformin Hcl 500 Mg Tablet PO 500 mg BID YULY Administration Montelukast Sodium 10 mg 09/11/22 21:00 09/11/22 20:42 Montelukast Sodium 10 Mg Tablet PO 10 mg BEDTIME YULY Administration Nitrofurantoin Macrocrystals 100 mg 09/11/22 21:00 09/12/22 09:58 Nitrofurantoin Monohyd/M-Cryst 100 Mg Capsule PO 100 mg Q12H YULY Administration Prazosin HCl 4 mg 09/11/22 21:00 09/11/22 20:42 Prazosin Hcl 1 Mg Capsule PO 4 mg BEDTIME YULY Administration Protocol Discontinued Medications Generic Name Dose Route Start Last Admin Trade Name Freq PRN Reason Stop Dose Admin Lorazepam 0.5 mg 09/11/22 18:31 09/11/22 18:46 Lorazepam 0.5 Mg Tablet PO 09/11/22 18:32 0.5 mg ONCE ONE Administration <TIMI Cruz - Last Filed: 09/11/22 14:18> Medications Administered Generic Name Dose Route Start Last Admin Trade Name Freq PRN Reason Stop Dose Admin Atorvastatin Calcium 10 mg 09/12/22 09:00 09/12/22 09:58 Atorvastatin Calcium 10 Mg Tablet PO 10 mg DAILY YULY Administration Chlorpromazine HCl 75 mg 09/11/22 17:55 09/11/22 18:46 Chlorpromazine Hcl 25 Mg Tablet PO 75 mg DAILY@1700 YULY Administration Fluoxetine HCl 60 mg 09/12/22 09:00 09/12/22 09:58 Fluoxetine Hcl 20 Mg Capsule PO 60 mg DAILY YULY Administration Fluphenazine HCl 5 mg 09/11/22 21:00 09/11/22 20:42 Fluphenazine Hcl 5 Mg Tablet PO 5 mg BEDTIME YULY Administration Lisinopril 5 mg 09/12/22 09:00 09/12/22 09:58 Lisinopril 5 Mg Tablet PO 5 mg DAILY YULY Administration Protocol Metformin HCl 500 mg 09/11/22 21:00 09/12/22 09:58 Metformin Hcl 500 Mg Tablet PO 500 mg BID YULY Administration Montelukast Sodium 10 mg 09/11/22 21:00 09/11/22 20:42 Montelukast Sodium 10 Mg Tablet PO 10 mg BEDTIME YULY Administration Nitrofurantoin Macrocrystals 100 mg 09/11/22 21:00 09/12/22 09:58 Nitrofurantoin Monohyd/M-Cryst 100 Mg Capsule PO 100 mg Q12H YULY Administration Prazosin HCl 4 mg 09/11/22 21:00 09/11/22 20:42 Prazosin Hcl 1 Mg Capsule PO 4 mg BEDTIME YULY Administration Protocol Discontinued Medications Generic Name Dose Route Start Last Admin Trade Name Freq PRN Reason Stop Dose Admin Lorazepam 0.5 mg 09/11/22 18:31 09/11/22 18:46 Lorazepam 0.5 Mg Tablet PO 09/11/22 18:32 0.5 mg ONCE ONE Administration <Henrietta Woody CNP - Last Filed: 09/11/22 23:02> Medications Administered Generic Name Dose Route Start Last Admin Trade Name Freq PRN Reason Stop Dose Admin Atorvastatin Calcium 10 mg 09/12/22 09:00 09/12/22 09:58 Atorvastatin Calcium 10 Mg Tablet PO 10 mg DAILY YULY Administration Chlorpromazine HCl 75 mg 09/11/22 17:55 09/11/22 18:46 Chlorpromazine Hcl 25 Mg Tablet PO 75 mg DAILY@1700 YULY Administration Fluoxetine HCl 60 mg 09/12/22 09:00 09/12/22 09:58 Fluoxetine Hcl 20 Mg Capsule PO 60 mg DAILY YULY Administration Fluphenazine HCl 5 mg 09/11/22 21:00 09/11/22 20:42 Fluphenazine Hcl 5 Mg Tablet PO 5 mg BEDTIME YULY Administration Lisinopril 5 mg 09/12/22 09:00 09/12/22 09:58 Lisinopril 5 Mg Tablet PO 5 mg DAILY YULY Administration Protocol Metformin HCl 500 mg 09/11/22 21:00 09/12/22 09:58 Metformin Hcl 500 Mg Tablet PO 500 mg BID YULY Administration Montelukast Sodium 10 mg 09/11/22 21:00 09/11/22 20:42 Montelukast Sodium 10 Mg Tablet PO 10 mg BEDTIME YULY Administration Nitrofurantoin Macrocrystals 100 mg 09/11/22 21:00 09/12/22 09:58 Nitrofurantoin Monohyd/M-Cryst 100 Mg Capsule PO 100 mg Q12H YULY Administration Prazosin HCl 4 mg 09/11/22 21:00 09/11/22 20:42 Prazosin Hcl 1 Mg Capsule PO 4 mg BEDTIME YULY Administration Protocol Discontinued Medications Generic Name Dose Route Start Last Admin Trade Name Bradleyq PRN Reason Stop Dose Admin Lorazepam 0.5 mg 09/11/22 18:31 09/11/22 18:46 Lorazepam 0.5 Mg Tablet PO 09/11/22 18:32 0.5 mg ONCE ONE Administration <Kingsley Larson MD - Last Filed: 09/12/22 10:26> Medical Decision Making Medical Records Medical records reviewed: Yes I reviewed the patient's medical records. <Henrietta Woody CNP - Last Filed: 09/11/22 23:02> Lab Data Lab results reviewed: Yes I reviewed the patient's lab results. <Henrietta Woody CNP - Last Filed: 09/11/22 23:02> Result diagrams: : 09/11/22 14:28 09/11/22 14:28 <TIMI Cruz - Last Filed: 09/11/22 14:18> Labs: Lab Results 09/11/22 09/11/22 09/11/22 Range/Units 14:28 14:28 14:28 WBC 8.3 (4.8-10.8) X10*3/uL RBC 4.17 L (4.20-5.50) X10*6/uL Hgb 11.2 L (12.0-16.0) g/dl Hct 35.2 L (37.0-47.0) % MCV 84.4 (80.0-98.0) fL MCH 26.9 L (27.0-33.0) pg MCHC 31.8 (31.0-35.0) g/dl RDW 14.8 (11.0-16.0) % Plt Count 260 (160-400) X10*3/uL MPV 10.0 (9.4-12.3) fL Immature Gran % (Auto) 0.4 (0.0-0.4) % Neut % (Auto) 70.5 (45-73) % Lymph % (Auto) 17.4 L (20-40) % [place] % (Auto) 7.6 (2-11) % Eos % (Auto) 3.5 (0-4) % Baso % (Auto) 0.6 (0-2) % Lymph # (Auto) 1.5 (1.2-4.9) X10*3/uL [place] # (Auto) 0.6 (0.1-1.2) X10*3/uL Eos # (Auto) 0.3 (0.0-0.4) X10*3/uL Baso # (Auto) 0.1 (0.0-0.2) X10*3/uL Abs Immat Gran (auto) 0.03 (0.00-0.03) X10*3/uL Absolute Neuts (auto) 5.9 (2.0-8.3) x10*3/uL Absolute Nucleated RBC 0.000 (0.0-0.012) X10*3/uL Nucleated RBC % (auto) 0.0 (0.0-0.2) /100WBC Sodium 136 (135-145) mmol/L Potassium 4.0 (3.3-5.1) mmol/L Chloride 104 (96-108) mmol/L Carbon Dioxide 21 L (22-29) mmol/L Anion Gap 15 (12-20) BUN 12 (9-16) mg/dL Creatinine 0.77 (0.5-1.4) mg/dL Estim Creat Clear Calc 107.7 Estimated GFR > 60 Random Glucose 162 H (60-115) mg/dL Calcium 9.3 (8.4-10.2) mg/dL Total Bilirubin 0.2 (0.0-1.0) mg/dL AST 14 (5-31) U/L ALT 13 (0-31) U/L Alkaline Phosphatase 107 (39-117) U/L Total Protein 7.5 (6.5-8.0) g/dL Albumin 4.6 (3.5-5.0) g/dL Urine Color Urine Appearance Urine pH (5.0-9.0) Ur Specific [place] (1.005-1.025) Urine Protein (Neg-Trace) mg/dL Urine Glucose (UA) (Negative) mg/dL Urine Ketones (Negative) mg/dL Urine Blood (Negative) Urine Nitrite (Negative) Ur Leukocyte Esterase (Negative) Salicylates < 5.0 L (15-30) mg/dL Urine Opiates Screen (Not Detect) Urine Fentanyl Screen (Not Detect) Acetaminophen < 1 (<30) mcg/mL Ur Barbiturates Screen (Not Detect) Ur Phencyclidine Scrn (Not Detect) Ur Amphetamines Screen (Not Detect) U Benzodiazepines Scrn (Not Detect) Urine Cocaine Screen (Not Detect) U Marijuana (THC) Screen (Not Detect) Ethyl Alcohol mg/dL COVID-19 (NICK) Negative (Negative) COVID-19 Clin Com See Note 09/11/22 09/11/22 09/11/22 Range/Units 14:28 18:21 18:21 WBC (4.8-10.8) X10*3/uL RBC (4.20-5.50) X10*6/uL Hgb (12.0-16.0) g/dl Hct (37.0-47.0) % MCV (80.0-98.0) fL MCH (27.0-33.0) pg MCHC (31.0-35.0) g/dl RDW (11.0-16.0) % Plt Count (160-400) X10*3/uL MPV (9.4-12.3) fL Immature Gran % (Auto) (0.0-0.4) % Neut % (Auto) (45-73) % Lymph % (Auto) (20-40) % [place] % (Auto) (2-11) % Eos % (Auto) (0-4) % Baso % (Auto) (0-2) % Lymph # (Auto) (1.2-4.9) X10*3/uL [place] # (Auto) (0.1-1.2) X10*3/uL Eos # (Auto) (0.0-0.4) X10*3/uL Baso # (Auto) (0.0-0.2) X10*3/uL Abs Immat Gran (auto) (0.00-0.03) X10*3/uL Absolute Neuts (auto) (2.0-8.3) x10*3/uL Absolute Nucleated RBC (0.0-0.012) X10*3/uL Nucleated RBC % (auto) (0.0-0.2) /100WBC Sodium (135-145) mmol/L Potassium (3.3-5.1) mmol/L Chloride (96-108) mmol/L Carbon Dioxide (22-29) mmol/L Anion Gap (12-20) BUN (9-16) mg/dL Creatinine (0.5-1.4) mg/dL Estim Creat Clear Calc Estimated GFR Random Glucose (60-115) mg/dL Calcium (8.4-10.2) mg/dL Total Bilirubin (0.0-1.0) mg/dL AST (5-31) U/L ALT (0-31) U/L Alkaline Phosphatase (39-117) U/L Total Protein (6.5-8.0) g/dL Albumin (3.5-5.0) g/dL Urine Color Yellow Urine Appearance Clear Urine pH 5.5 (5.0-9.0) Ur Specific [place] <= 1.005 (1.005-1.025) Urine Protein Negative (Neg-Trace) mg/dL Urine Glucose (UA) Negative (Negative) mg/dL Urine Ketones Negative (Negative) mg/dL Urine Blood Negative (Negative) Urine Nitrite Negative (Negative) Ur Leukocyte Esterase Negative (Negative) Salicylates (15-30) mg/dL Urine Opiates Screen Not Detected (Not Detect) Urine Fentanyl Screen Not Detected (Not Detect) Acetaminophen (<30) mcg/mL Ur Barbiturates Screen Not Detected (Not Detect) Ur Phencyclidine Scrn Not Detected (Not Detect) Ur Amphetamines Screen Not Detected (Not Detect) U Benzodiazepines Scrn Not Detected (Not Detect) Urine Cocaine Screen Not Detected (Not Detect) U Marijuana (THC) Screen Not Detected (Not Detect) Ethyl Alcohol < 10 mg/dL COVID-19 (NICK) (Negative) COVID-19 Clin Com <TIMI Cruz - Last Filed: 09/11/22 14:18> Lab Results 09/11/22 09/11/22 09/11/22 Range/Units 14:28 14:28 14:28 WBC 8.3 (4.8-10.8) X10*3/uL RBC 4.17 L (4.20-5.50) X10*6/uL Hgb 11.2 L (12.0-16.0) g/dl Hct 35.2 L (37.0-47.0) % MCV 84.4 (80.0-98.0) fL MCH 26.9 L (27.0-33.0) pg MCHC 31.8 (31.0-35.0) g/dl RDW 14.8 (11.0-16.0) % Plt Count 260 (160-400) X10*3/uL MPV 10.0 (9.4-12.3) fL Immature Gran % (Auto) 0.4 (0.0-0.4) % Neut % (Auto) 70.5 (45-73) % Lymph % (Auto) 17.4 L (20-40) % [place] % (Auto) 7.6 (2-11) % Eos % (Auto) 3.5 (0-4) % Baso % (Auto) 0.6 (0-2) % Lymph # (Auto) 1.5 (1.2-4.9) X10*3/uL [place] # (Auto) 0.6 (0.1-1.2) X10*3/uL Eos # (Auto) 0.3 (0.0-0.4) X10*3/uL Baso # (Auto) 0.1 (0.0-0.2) X10*3/uL Abs Immat Gran (auto) 0.03 (0.00-0.03) X10*3/uL Absolute Neuts (auto) 5.9 (2.0-8.3) x10*3/uL Absolute Nucleated RBC 0.000 (0.0-0.012) X10*3/uL Nucleated RBC % (auto) 0.0 (0.0-0.2) /100WBC Sodium 136 (135-145) mmol/L Potassium 4.0 (3.3-5.1) mmol/L Chloride 104 (96-108) mmol/L Carbon Dioxide 21 L (22-29) mmol/L Anion Gap 15 (12-20) BUN 12 (9-16) mg/dL Creatinine 0.77 (0.5-1.4) mg/dL Estim Creat Clear Calc 107.7 Estimated GFR > 60 Random Glucose 162 H (60-115) mg/dL Calcium 9.3 (8.4-10.2) mg/dL Total Bilirubin 0.2 (0.0-1.0) mg/dL AST 14 (5-31) U/L ALT 13 (0-31) U/L Alkaline Phosphatase 107 (39-117) U/L Total Protein 7.5 (6.5-8.0) g/dL Albumin 4.6 (3.5-5.0) g/dL Urine Color Urine Appearance Urine pH (5.0-9.0) Ur Specific [place] (1.005-1.025) Urine Protein (Neg-Trace) mg/dL Urine Glucose (UA) (Negative) mg/dL Urine Ketones (Negative) mg/dL Urine Blood (Negative) Urine Nitrite (Negative) Ur Leukocyte Esterase (Negative) Salicylates < 5.0 L (15-30) mg/dL Urine Opiates Screen (Not Detect) Urine Fentanyl Screen (Not Detect) Acetaminophen < 1 (<30) mcg/mL Ur Barbiturates Screen (Not Detect) Ur Phencyclidine Scrn (Not Detect) Ur Amphetamines Screen (Not Detect) U Benzodiazepines Scrn (Not Detect) Urine Cocaine Screen (Not Detect) U Marijuana (THC) Screen (Not Detect) Ethyl Alcohol mg/dL COVID-19 (NICK) Negative (Negative) COVID-19 Clin Com See Note 09/11/22 09/11/22 09/11/22 Range/Units 14:28 18:21 18:21 WBC (4.8-10.8) X10*3/uL RBC (4.20-5.50) X10*6/uL Hgb (12.0-16.0) g/dl Hct (37.0-47.0) % MCV (80.0-98.0) fL MCH (27.0-33.0) pg MCHC (31.0-35.0) g/dl RDW (11.0-16.0) % Plt Count (160-400) X10*3/uL MPV (9.4-12.3) fL Immature Gran % (Auto) (0.0-0.4) % Neut % (Auto) (45-73) % Lymph % (Auto) (20-40) % [place] % (Auto) (2-11) % Eos % (Auto) (0-4) % Baso % (Auto) (0-2) % Lymph # (Auto) (1.2-4.9) X10*3/uL [place] # (Auto) (0.1-1.2) X10*3/uL Eos # (Auto) (0.0-0.4) X10*3/uL Baso # (Auto) (0.0-0.2) X10*3/uL Abs Immat Gran (auto) (0.00-0.03) X10*3/uL Absolute Neuts (auto) (2.0-8.3) x10*3/uL Absolute Nucleated RBC (0.0-0.012) X10*3/uL Nucleated RBC % (auto) (0.0-0.2) /100WBC Sodium (135-145) mmol/L Potassium (3.3-5.1) mmol/L Chloride (96-108) mmol/L Carbon Dioxide (22-29) mmol/L Anion Gap (12-20) BUN (9-16) mg/dL Creatinine (0.5-1.4) mg/dL Estim Creat Clear Calc Estimated GFR Random Glucose (60-115) mg/dL Calcium (8.4-10.2) mg/dL Total Bilirubin (0.0-1.0) mg/dL AST (5-31) U/L ALT (0-31) U/L Alkaline Phosphatase (39-117) U/L Total Protein (6.5-8.0) g/dL Albumin (3.5-5.0) g/dL Urine Color Yellow Urine Appearance Clear Urine pH 5.5 (5.0-9.0) Ur Specific [place] <= 1.005 (1.005-1.025) Urine Protein Negative (Neg-Trace) mg/dL Urine Glucose (UA) Negative (Negative) mg/dL Urine Ketones Negative (Negative) mg/dL Urine Blood Negative (Negative) Urine Nitrite Negative (Negative) Ur Leukocyte Esterase Negative (Negative) Salicylates (15-30) mg/dL Urine Opiates Screen Not Detected (Not Detect) Urine Fentanyl Screen Not Detected (Not Detect) Acetaminophen (<30) mcg/mL Ur Barbiturates Screen Not Detected (Not Detect) Ur Phencyclidine Scrn Not Detected (Not Detect) Ur Amphetamines Screen Not Detected (Not Detect) U Benzodiazepines Scrn Not Detected (Not Detect) Urine Cocaine Screen Not Detected (Not Detect) U Marijuana (THC) Screen Not Detected (Not Detect) Ethyl Alcohol < 10 mg/dL COVID-19 (NICK) (Negative) COVID-19 Clin Com <Henrietta Woody, [employer] - Last Filed: 09/11/22 23:02> Lab Results 09/11/22 09/11/22 09/11/22 Range/Units 14:28 14:28 14:28 WBC 8.3 (4.8-10.8) X10*3/uL RBC 4.17 L (4.20-5.50) X10*6/uL Hgb 11.2 L (12.0-16.0) g/dl Hct 35.2 L (37.0-47.0) % MCV 84.4 (80.0-98.0) fL MCH 26.9 L (27.0-33.0) pg MCHC 31.8 (31.0-35.0) g/dl RDW 14.8 (11.0-16.0) % Plt Count 260 (160-400) X10*3/uL MPV 10.0 (9.4-12.3) fL Immature Gran % (Auto) 0.4 (0.0-0.4) % Neut % (Auto) 70.5 (45-73) % Lymph % (Auto) 17.4 L (20-40) % [place] % (Auto) 7.6 (2-11) % Eos % (Auto) 3.5 (0-4) % Baso % (Auto) 0.6 (0-2) % Lymph # (Auto) 1.5 (1.2-4.9) X10*3/uL [place] # (Auto) 0.6 (0.1-1.2) X10*3/uL Eos # (Auto) 0.3 (0.0-0.4) X10*3/uL Baso # (Auto) 0.1 (0.0-0.2) X10*3/uL Abs Immat Gran (auto) 0.03 (0.00-0.03) X10*3/uL Absolute Neuts (auto) 5.9 (2.0-8.3) x10*3/uL Absolute Nucleated RBC 0.000 (0.0-0.012) X10*3/uL Nucleated RBC % (auto) 0.0 (0.0-0.2) /100WBC Sodium 136 (135-145) mmol/L Potassium 4.0 (3.3-5.1) mmol/L Chloride 104 (96-108) mmol/L Carbon Dioxide 21 L (22-29) mmol/L Anion Gap 15 (12-20) BUN 12 (9-16) mg/dL Creatinine 0.77 (0.5-1.4) mg/dL Estim Creat Clear Calc 107.7 Estimated GFR > 60 Random Glucose 162 H (60-115) mg/dL Calcium 9.3 (8.4-10.2) mg/dL Total Bilirubin 0.2 (0.0-1.0) mg/dL AST 14 (5-31) U/L ALT 13 (0-31) U/L Alkaline Phosphatase 107 (39-117) U/L Total Protein 7.5 (6.5-8.0) g/dL Albumin 4.6 (3.5-5.0) g/dL Urine Color Urine Appearance Urine pH (5.0-9.0) Ur Specific [place] (1.005-1.025) Urine Protein (Neg-Trace) mg/dL Urine Glucose (UA) (Negative) mg/dL Urine Ketones (Negative) mg/dL Urine Blood (Negative) Urine Nitrite (Negative) Ur Leukocyte Esterase (Negative) Salicylates < 5.0 L (15-30) mg/dL Urine Opiates Screen (Not Detect) Urine Fentanyl Screen (Not Detect) Acetaminophen < 1 (<30) mcg/mL Ur Barbiturates Screen (Not Detect) Ur Phencyclidine Scrn (Not Detect) Ur Amphetamines Screen (Not Detect) U Benzodiazepines Scrn (Not Detect) Urine Cocaine Screen (Not Detect) U Marijuana (THC) Screen (Not Detect) Ethyl Alcohol mg/dL COVID-19 (NICK) Negative (Negative) COVID-19 Clin Com See Note 09/11/22 09/11/22 09/11/22 Range/Units 14:28 18:21 18:21 WBC (4.8-10.8) X10*3/uL RBC (4.20-5.50) X10*6/uL Hgb (12.0-16.0) g/dl Hct (37.0-47.0) % MCV (80.0-98.0) fL MCH (27.0-33.0) pg MCHC (31.0-35.0) g/dl RDW (11.0-16.0) % Plt Count (160-400) X10*3/uL MPV (9.4-12.3) fL Immature Gran % (Auto) (0.0-0.4) % Neut % (Auto) (45-73) % Lymph % (Auto) (20-40) % [place]et % (Auto) (2-11) % Eos % (Auto) (0-4) % Baso % (Auto) (0-2) % Lymph # (Auto) (1.2-4.9) X10*3/uL [place] # (Auto) (0.1-1.2) X10*3/uL Eos # (Auto) (0.0-0.4) X10*3/uL Baso # (Auto) (0.0-0.2) X10*3/uL Abs Immat Gran (auto) (0.00-0.03) X10*3/uL Absolute Neuts (auto) (2.0-8.3) x10*3/uL Absolute Nucleated RBC (0.0-0.012) X10*3/uL Nucleated RBC % (auto) (0.0-0.2) /100WBC Sodium (135-145) mmol/L Potassium (3.3-5.1) mmol/L Chloride (96-108) mmol/L Carbon Dioxide (22-29) mmol/L Anion Gap (12-20) BUN (9-16) mg/dL Creatinine (0.5-1.4) mg/dL Estim Creat Clear Calc Estimated GFR Random Glucose (60-115) mg/dL Calcium (8.4-10.2) mg/dL Total Bilirubin (0.0-1.0) mg/dL AST (5-31) U/L ALT (0-31) U/L Alkaline Phosphatase (39-117) U/L Total Protein (6.5-8.0) g/dL Albumin (3.5-5.0) g/dL Urine Color Yellow Urine Appearance Clear Urine pH 5.5 (5.0-9.0) Ur Specific [place] <= 1.005 (1.005-1.025) Urine Protein Negative (Neg-Trace) mg/dL Urine Glucose (UA) Negative (Negative) mg/dL Urine Ketones Negative (Negative) mg/dL Urine Blood Negative (Negative) Urine Nitrite Negative (Negative) Ur Leukocyte Esterase Negative (Negative) Salicylates (15-30) mg/dL Urine Opiates Screen Not Detected (Not Detect) Urine Fentanyl Screen Not Detected (Not Detect) Acetaminophen (<30) mcg/mL Ur Barbiturates Screen Not Detected (Not Detect) Ur Phencyclidine Scrn Not Detected (Not Detect) Ur Amphetamines Screen Not Detected (Not Detect) U Benzodiazepines Scrn Not Detected (Not Detect) Urine Cocaine Screen Not Detected (Not Detect) U Marijuana (THC) Screen Not Detected (Not Detect) Ethyl Alcohol < 10 mg/dL COVID-19 (NICK) (Negative) COVID-19 Clin Com <Kingsley Larson MD - Last Filed: 09/12/22 10:26> Discharge Plan Discharge Clinical Impression: Suicidal ideation <TIMI Cruz - Last Filed: 09/11/22 14:18> Patient Disposition: Still a Patient <TIMI Cruz - Last Filed: 09/11/22 14:18> Prescriptions: No Action metformin 500 mg tablet 1 tab PO BID atorvastatin 10 mg tablet 10 mg PO DAILY montelukast 10 mg tablet 1 tab PO BEDTIME chlorpromazine 25 mg tablet 3 tab PO DAILY@1700 nicotine (polacrilex) 4 mg gum 1 ea PO Q2H PRN (Reason: Smoking Cessation) lisinopril 5 mg tablet 1 tab PO DAILY fluoxetine 20 mg capsule 60 mg PO DAILY nitrofurantoin monohyd/m-cryst [Macrobid] 100 mg capsule 100 mg PO Q12H 7 Days Qty: 14 0RF Rx Instructions: must administer with a meal/food prazosin 1 mg Capsule 4 mg PO BEDTIME 30 Days Qty: 120 0RF Protocol: Hold for SBP< HOLD for SBP < : 90 fluphenazine HCl 5 mg tablet 1 tab PO BEDTIME sennosides [senna] 8.6 mg Tablet 8.6 mg PO BEDTIME PRN (Reason: Constipation) <TIMI Cruz - Last Filed: 09/11/22 14:18> Interventions: Payne-Suicide Risk Severity Scale Last Done: 09/11/22 16:20 <TIMI Cruz - Last Filed: 09/11/22 14:18>
[2022-09-11 14:33] LABS: MANUAL DIFF FLAG NO
[2022-09-11 14:37] LABS: Basophils Absolute Auto 0.1 X10*3/uL (0.0-0.2); Basophils Percent Auto 0.6 % (0-2); Eosinophils Absolute Auto 0.3 X10*3/uL (0.0-0.4); Eosinophils Percent Auto 3.5 % (0-4); Hematocrit 35.2 % (37.0-47.0); Hemoglobin 11.2 g/dl (12.0-16.0); Imm Gran Abs Auto 0.03 X10*3/uL (0.00-0.03); Imm Gran Pct Auto 0.4 % (0.0-0.4); Lymphocytes Absolute Auto 1.5 X10*3/uL (1.2-4.9); Lymphocytes Percent Auto 17.4 % (20-40); Mean Corpuscular HGB Conc 31.8 g/dl (31.0-35.0); Mean Corpuscular Hemoglobin 26.9 pg (27.0-33.0); Mean Corpuscular Volume 84.4 fL (80.0-98.0); Monocytes Absolute Auto 0.6 X10*3/uL (0.1-1.2); Monocytes Percent Auto 7.6 % (2-11); Neutrophils Absolute Auto 5.9 x10*3/uL (2.0-8.3); Neutrophils Percent Auto 70.5 % (45-73); Platelet Count 260 X10*3/uL (160-400); Red Blood Count 4.17 X10*6/uL (4.20-5.50); Red Cell Distribution Width 14.8 % (11.0-16.0); White Blood Count 8.3 X10*3/uL (4.8-10.8)
[2022-09-11 14:47] LABS: Ethanol < 10 mg/dL
[2022-09-11 14:48] LABS: COVID-19 Test Negative (Negative); IDNOW Serial# BCCEAD1C
[2022-09-11 14:51] LABS: Alanine Aminotransferase 13 U/L (0-31); Albumin Level 4.6 g/dL (3.5-5.0); Alkaline Phosphatase 107 U/L (39-117); Anion Gap 15 (12-20); Aspartate Amino Transferase 14 U/L (5-31); Bilirubin Total 0.2 mg/dL (0.0-1.0); Blood Urea Nitrogen 12 mg/dL (9-16); Calcium 9.3 mg/dL (8.4-10.2); Carbon Dioxide 21 mmol/L (22-29); Chloride 104 mmol/L (96-108); Creatinine Clr Calc Pharmacy 107.7; Estimated Glomerular Filt Rate > 60; Glucose Random 162 mg/dL (60-115); Sodium 136 mmol/L (135-145); Total Protein 7.5 g/dL (6.5-8.0)
[2022-09-11 15:44] LABS: Acetaminophen LAB < 1 mcg/mL (<30); Salicylate < 5.0 mg/dL (15-30)
--- NOTE | 2022-09-11 16:16 | PHA.MEDREC ---
Pharmacy Consult ? Medication Reconciliation Pharmacy has completed the medication reconciliation. recieved updated medication list from [facility]. Marj BonillaD
[2022-09-11 16:30] VITALS: BP 116/66; PULSE 101; RESP 18; TEMP 36.2; O2SAT 99
--- NOTE | 2022-09-11 18:32 | PC.NURSE ---
pt seems pleased that she is a bed search, has been pleasant and cooperative but occasionally mentions voices and stress but is easily redirected, wants her meds and med rec completed and awaiting it to become available in [facility]
[2022-09-11 18:34] LABS: Appearance Urine Clear; Color Urine Yellow; Glucose Urine UA Negative (Negative); Leukocyte Esterase Urine Negative (Negative); Nitrite Urine Negative (Negative); PH 5.5 (5.0-9.0); Specific Gravity - Urine <= 1.005 (1.005-1.025); Urine Blood Negative (Negative); Urine Ketones Negative (Negative); Urine Protein Negative (Neg-Trace)
[2022-09-11 18:45] LABS: Amphetamine Screen Urine Not Detected (Not Detect); Barbiturates, Urine Not Detected (Not Detect); Benzodiazepines Screen Urine Not Detected (Not Detect); Cannabinoid Screen Urine Not Detected (Not Detect); Cocaine Screen Urine Not Detected (Not Detect); Fentanyl, urine Not Detected (Not Detect); Opiate Screen Urine Not Detected (Not Detect); Phencyclidine Screen Urine Not Detected (Not Detect)
[2022-09-11] MEDS: LORazepam 0.5 MG TABLET PO (18:46)
[2022-09-11] MEDS: chlorproMAZINE HCl 25 MG TABLET 75 MG PO (18:46)
[2022-09-11] MEDS: Nitrofurantoin Monohyd/M-Cryst 100 MG CAPSULE PO (20:42)
[2022-09-11] MEDS: metFORMIN HCl 500 MG TABLET PO (20:42)
[2022-09-11] MEDS: Prazosin HCL 1 MG CAPSULE 4 MG PO (20:42)
[2022-09-11] MEDS: Montelukast Sodium 10 MG TABLET PO (20:42)
[2022-09-11] MEDS: fluPHENAZine HCl 5 MG TABLET PO (20:42)
[2022-09-11 20:49] VITALS: BP 118/75; PULSE 112; RESP 16; TEMP 36.6; O2SAT 95
[2022-09-12 01:30] VITALS: BP 126/70; PULSE 87; RESP 17; TEMP 36.9; O2SAT 96
--- NOTE | 2022-09-12 05:48 | PC.NURSE ---
Patient slept through the night, no distress observed/reported, medication compliant, appetite good, elimination intact, behavior appropriate and non concerning, disposition per care team is voluntary bed search, VSS, will continue to monitor.
--- NOTE | 2022-09-12 07:22 | PC.NURSE ---
patient appears to remain at rest this am, respirations are even and unllabored patient appears in no distress, had awakened and checked in w t/w, im not eating recently which indicates to me perhaps she is not feeling very safe this am. patient appears in no acute distress.
[2022-09-12] MEDS: Atorvastatin Calcium 10 MG TABLET PO (09:58)
[2022-09-12] MEDS: FLUoxetine HCl 20 MG CAPSULE 60 MG PO (09:58)
[2022-09-12] MEDS: metFORMIN HCl 500 MG TABLET PO (09:58)
[2022-09-12] MEDS: Nitrofurantoin Monohyd/M-Cryst 100 MG CAPSULE PO (09:58)
[2022-09-12] MEDS: lisinopriL 5 MG TABLET PO (09:58)
--- NOTE | 2022-09-12 21:25 | MHC.CARE ---
CHeck in call not made as pt returned to the ED
== END 2022-09-12 11:52 | disposition home or self-care (01) ==
PROVIDERS: Nurse Practitioner Family; Physician Assistant; Emergency Provider Emergency Medicine
DX: R45.851 Suicidal ideations (principal); Z20.822 Contact with and (suspected) exposure to COVID-19; R44.0 Auditory hallucinations; F31.81 Bipolar II disorder; F41.9 Anxiety disorder, unspecified; F60.3 Borderline personality disorder; F43.10 Post-traumatic stress disorder, unspecified; E11.9 Type 2 diabetes mellitus without complications; E78.5 Hyperlipidemia, unspecified; F17.210 Nicotine dependence, cigarettes, uncomplicated; Z91.52 Personal history of nonsuicidal self-harm; Z79.02 Long term (current) use of antithrombotics/antiplatelets; Z79.84 Long term (current) use of oral hypoglycemic drugs; Z79.899 Other long term (current) drug therapy
CPT/HCPCS: 36415; 80053; 80143; 80179; 80307; 81003; 82077; 85025; 87635; 99284; 99285

== ENCOUNTER 2022-09-12 17:40 | Emergency (ER) | payer MEDICARE, MEDICAID, SELFPAY ==
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
[2022-09-12 18:07] VITALS: BP 156/96; PULSE 125; RESP 16; TEMP 36.6; O2SAT 96; O2SAT 99; BMI 40.7
[2022-09-12 19:07] LABS: Appearance Urine Clear; Color Urine Yellow; Glucose Urine UA Negative (Negative); Leukocyte Esterase Urine Trace (Negative); Nitrite Urine Negative (Negative); Specific Gravity - Urine <= 1.005 (1.005-1.025); UMIC TRIGGER UACC YES; Urine Blood Negative (Negative); Urine Ketones Negative (Negative); Urine Protein Negative (Neg-Trace)
[2022-09-12 19:16] LABS: Amphetamine Screen Urine Not Detected (Not Detect); Barbiturates, Urine Not Detected (Not Detect); Benzodiazepines Screen Urine Not Detected (Not Detect); Cannabinoid Screen Urine Not Detected (Not Detect); Cocaine Screen Urine Not Detected (Not Detect); Fentanyl, urine Not Detected (Not Detect); Opiate Screen Urine Not Detected (Not Detect); Phencyclidine Screen Urine Not Detected (Not Detect)
[2022-09-12 19:19] LABS: COVID-19 Test Negative (Negative); IDNOW Serial# 16C4AD1C
[2022-09-12 19:20] LABS: Bacteria Urine Trace (None Seen); Hyaline Casts Urine 0-2 /LPF (0-2); RBC Urine 0-2 /HPF (0-2); WBC Urine 0-5 /HPF (0-5)
[2022-09-13] MEDS: Montelukast Sodium 10 MG TABLET PO (00:18)
[2022-09-13] MEDS: Nitrofurantoin Monohyd/M-Cryst 100 MG CAPSULE PO ×2 (00:18→08:29)
[2022-09-13] MEDS: fluPHENAZine HCl 5 MG TABLET PO (00:18)
[2022-09-13] MEDS: Prazosin HCL 1 MG CAPSULE 4 MG PO (00:18)
[2022-09-13 00:42] VITALS: BP 111/70; PULSE 85; RESP 17; TEMP 36.6; O2SAT 97
--- NOTE | 2022-09-13 06:30 | PC.NURSE ---
Patient slept through the night, no distress observed/reported, behavior in good control and non concerning, patient was assessed by care team, disposition pending, care team clem follow up, medication compliant, patient + for UTI being treated with Macrobid, VSS, will continue to monitor
[2022-09-13 08:07] VITALS: BP 139/85; PULSE 96; RESP 16; TEMP 36.4; O2SAT 96
[2022-09-13] MEDS: Nicotine 21 MG PATCH.TD24 TRANSDERMA (08:29)
[2022-09-13] MEDS: metFORMIN HCl 500 MG TABLET PO (08:29)
[2022-09-13] MEDS: lisinopriL 5 MG TABLET PO (08:30)
[2022-09-13] MEDS: FLUoxetine HCl 20 MG CAPSULE 60 MG PO (08:30)
[2022-09-13] MEDS: Atorvastatin Calcium 10 MG TABLET PO (08:30)
[2022-09-13] MEDS: QUEtiapine Fumarate 100 MG TABLET PO (08:34)
--- NOTE | 2022-09-13 12:19 | MHC.CARE ---
CARE Team met with pt who reported that she was no longer feeling unsafe and that her AVH has grown manageable.? She is now requesting discharge back to her alf.? She is able to verbally contract for safety and discussed intervention strategies.? Plan is for pt to discharge back to her group room.? This plan was discussed with and agreed upon by CARE Intelligence Agent Sintia MILLER and ED provider Dr. Dick Beltre.
--- NOTE | 2022-09-13 15:01 | MHC.CARE ---
Called pt for a follow up call, no answer, left a message requesting a return call.
== END 2022-09-13 11:56 | disposition home or self-care (01) ==
PROVIDERS: Emergency Provider Emergency Medicine
DX: R45.851 Suicidal ideations (principal); F17.210 Nicotine dependence, cigarettes, uncomplicated; Z20.822 Contact with and (suspected) exposure to COVID-19; Z71.6 Tobacco abuse counseling; Z79.899 Other long term (current) drug therapy
CPT/HCPCS: 80307; 81001; 87635; 99284

== ENCOUNTER 2022-09-16 17:54 | Emergency (ER) | payer MEDICARE, MEDICAID, SELFPAY ==
--- NOTE | 2022-09-16 17:56 | ED.PSYCH ---
HPI - Psych General Chief Complaint: Psychiatric Symptoms Stated Complaint: crisis Source: patient and EMS Mode of arrival: EMS Limitations: no limitations History of Present Illness HPI Narrative: 46-year-old female presents via EMS under [place] for suicidal ideation with plan. MD complaint: suicidal ideation and anxiety Onset (ago): year(s) Duration: constant History of same: Yes Relieving factors: none Associated psychiatric symptoms: depression, suicidal ideation, auditory hallucinations and delusions Associated symptoms: denies other symptoms Treatments prior to arrival: placed on mental health hold If self harm: admits thoughts of self harm and has plan Related Data Home Medications Medication Instructions Recorded Confirmed atorvastatin 10 mg tablet 10 mg PO DAILY 05/29/21 09/12/22 metformin 500 mg tablet 1 tab PO BID 05/29/21 09/12/22 montelukast 10 mg tablet 1 tab PO BEDTIME 05/29/21 09/12/22 fluphenazine HCl 5 mg tablet 1 tab PO BEDTIME 03/19/22 09/12/22 chlorpromazine 25 mg tablet 3 tab PO DAILY@1700 06/17/22 09/12/22 fluoxetine 20 mg capsule 60 mg PO DAILY 07/30/22 09/12/22 lisinopril 5 mg tablet 1 tab PO DAILY 07/30/22 09/12/22 nicotine (polacrilex) 4 mg gum 1 ea PO Q2H PRN Smoking Cessation 07/30/22 09/12/22 sennosides 8.6 mg tablet (senna) 8.6 mg PO BEDTIME PRN Constipation 09/11/22 09/12/22 Previous Rx's Medication Instructions Recorded prazosin 1 mg capsule 4 mg PO BEDTIME 30 days #120 caps 10/18/21 nitrofurantoin 100 mg PO Q12H 7 days #14 caps 09/07/22 monohydrate/macrocrystals 100 mg capsule (Macrobid) Allergies Allergy/AdvReac Type Severity Reaction Status Date / Time Fish Containing Products Allergy Severe ANAPHYLAXIS Verified 08/29/22 12:26 codeine [Codeine] Allergy Intermediate RASH Verified 08/29/22 12:26 Penicillins Allergy Intermediate RASH Verified 08/29/22 12:26 prednisone [Prednisone] Allergy Intermediate RASH Verified 08/29/22 12:26 Sulfa (Sulfonamide Allergy Intermediate RASH Verified 08/29/22 12:26 Antibiotics) [Sulfa (Sulfonamides)] azithromycin [AZITHROMYCIN] AdvReac Severe RASH Verified 08/29/22 12:26 ziprasidone [From Geodon] AdvReac Intermediate dysuria, Verified 08/29/22 12:26 rash Review of Systems Review of Systems: Constitutional: No Fever, No Chills ENT/Mouth: No Ear Pain, No Nasal Congestion, No sore throat Eyes: No Eye Pain, No Swelling, No Redness Cardiovascular: No Chest Pain, No SOB Respiratory: No Cough, No Sputum, No Dyspnea Gastrointestinal: No Nausea, No Vomiting, No Diarrhea, No Hematochezia, No Melena Genitourinary: No Dysuria, No Urinary Frequency, No Hematuria Musculoskeletal: No Myalgias Skin: No Skin Lesions, No rash Neuro: No Weakness, No Numbness, No Paresthesias, No Dizziness, No Headache Psych: positive Anxiety, positive Depression, positive SI Heme/Lymph: No Lymphadenopathy Endocrine: No Polyuria, No Polydipsia Yes all other systems are reviewed and are negative PMFSH Past Medical History Attestation statement: The following information was validated with the patient. Source: old records reviewed Medical History Acetaminophen overdose Borderline personality disorder Bronchitis Depression Diabetes type 2, controlled Full body hives GERD (gastroesophageal reflux disease) History of attempted suicide History of non-suicidal self-harm Hyperlipidemia Hypomagnesemia Major depression MDD (major depressive disorder), recurrent episode, severe Mood disorder Overdose PTSD (post-traumatic stress disorder) Suicide attempt Suicide attempt by acetaminophen overdose Social History Social History Household Members: Other Household Members Other:: fdc Housing: Other Housing Other:: fdc Do you presently have visiting nurse or other home services: No Unable to assess alcohol history related to: Unknown Alcohol intake: unknown Patient Tobacco Use Status: Current everyday Tobacco user Tobacco use type: Cigarette Cigarette Packs Per Day: 1 Cigarettes Per Day: 16 Years Smoked: 20 e-Cigarette/Vaping Use: Never Used Substance Use Type: Marijuana Advance Directives: No Advance Directives Information Provided: No Healthcare Proxy: No Guardian: No service: No Current occupational status: unemployed and disabled Sexual orientation: Don't Know Physical Exam Vital Signs: Vital Signs: Last Vital Signs Temp 97.0 F 09/16/22 18:01 Pulse 120 H 09/16/22 18:01 Resp 18 09/16/22 18:01 BP 124/90 H 09/16/22 18:01 Pulse Ox 96 09/16/22 18:01 O2 Del Method 09/16/22 18:01 BMI result Body Mass Index 35.4 Appearance: Alert. Oriented X3. Moderate emotional distress. Eyes: Pupils equal, round and reactive to light. ENT: Pharynx normal. Neck: Normal inspection. Neck supple. CVS: Normal heart rate and rhythm. Pulses normal. Respiratory: No respiratory distress. Breath sounds normal. Abdomen: Soft and nontender. Skin: Skin warm and dry. Normal skin color. Normal skin turgor. Extremities: Gait well-balanced well coordinated. Neuro: No motor deficit. No sensory deficit. Cranial nerves 2-12 intact Course Course Course Narrative: 46-year-old female presents via EMS for suicidal ideation and auditory hallucinations. States that the hallucinations are command telling her to slit her throat. Patient presents to this facility on a daily basis, and has a care plan in place. Will follow care plan per [facility]. Patient has no medical complaints at this time. 20:30 care team consult complete. Plan care to discharge home. Medications Administered Discontinued Medications Generic Name Dose Route Start Last Admin Trade Name Freq PRN Reason Stop Dose Admin Lorazepam 0.5 mg 09/16/22 18:01 09/16/22 18:08 Lorazepam 0.5 Mg Tablet PO 09/16/22 18:02 0.5 mg ONCE ONE Administration MDM - Psych Differential Diagnosis Differential diagnosis: Likely suicidal ideation, depression and acute anxiety Medical Records Attestation: I reviewed the patient's medical records. Lab Data Attestation: I reviewed the patient's lab results. Labs: Lab Results 09/16/22 09/16/22 Range/Units 18:24 19:15 Urine Opiates Screen Not Detected (Not Detect) Urine Fentanyl Screen Not Detected (Not Detect) Ur Barbiturates Screen Not Detected (Not Detect) Ur Phencyclidine Scrn Not Detected (Not Detect) Ur Amphetamines Screen Not Detected (Not Detect) U Benzodiazepines Scrn Not Detected (Not Detect) Urine Cocaine Screen Not Detected (Not Detect) U Marijuana (THC) Screen Not Detected (Not Detect) COVID-19 (NICK) Negative (Negative) COVID-19 Clin Com See Note Discharge Plan Discharge Clinical Impression: Depression, Suicidal ideation Patient Disposition: Home, Self-Care Instructions: Depression (ED), Suicide Prevention (ED) Additional Instructions: Follow-up with outpatient psychiatry as scheduled. Thank you for choosing this emergency department for evaluation. Please follow-up with primary care physician as needed. Return to the emergency department for any new, concerning, or worsening symptoms. Prescriptions: No Action metformin 500 mg tablet 1 tab PO BID atorvastatin 10 mg tablet 10 mg PO DAILY montelukast 10 mg tablet 1 tab PO BEDTIME chlorpromazine 25 mg tablet 3 tab PO DAILY@1700 nicotine (polacrilex) 4 mg gum 1 ea PO Q2H PRN (Reason: Smoking Cessation) lisinopril 5 mg tablet 1 tab PO DAILY fluoxetine 20 mg capsule 60 mg PO DAILY nitrofurantoin monohyd/m-cryst [Macrobid] 100 mg capsule 100 mg PO Q12H 7 Days Qty: 14 0RF Rx Instructions: must administer with a meal/food prazosin 1 mg Capsule 4 mg PO BEDTIME 30 Days Qty: 120 0RF Protocol: Hold for SBP< HOLD for SBP < : 90 fluphenazine HCl 5 mg tablet 1 tab PO BEDTIME sennosides [senna] 8.6 mg Tablet 8.6 mg PO BEDTIME PRN (Reason: Constipation) Interventions: Watkins-Suicide Risk Severity Scale Last Done: 09/16/22 18:14 ED Discharge Assessment Last Done: 09/16/22 20:59
[2022-09-16 18:01] VITALS: BP 124/90; BP 158/90; PULSE 120; PULSE 130; RESP 18; TEMP 36.1; O2SAT 96; O2SAT 98; BMI 35.4
[2022-09-16] MEDS: LORazepam 0.5 MG TABLET PO (18:08)
[2022-09-16 19:05] LABS: COVID-19 Test Negative (Negative)
[2022-09-16 19:35] LABS: Amphetamine Screen Urine Not Detected (Not Detect); Barbiturates, Urine Not Detected (Not Detect); Benzodiazepines Screen Urine Not Detected (Not Detect); Cannabinoid Screen Urine Not Detected (Not Detect); Cocaine Screen Urine Not Detected (Not Detect); Fentanyl, urine Not Detected (Not Detect); Opiate Screen Urine Not Detected (Not Detect); Phencyclidine Screen Urine Not Detected (Not Detect)
--- NOTE | 2022-09-17 16:46 | MHC.CARE ---
Called to follow up with alysia seaman
--- NOTE | 2022-09-17 17:43 | MHC.CARE ---
Care Team left a voice message at pt's [facility]. Purpose of call was to follow up.
== END 2022-09-16 21:23 | disposition home or self-care (01) ==
PROVIDERS: Nurse Practitioner Family; Emergency Provider Emergency Medicine Emergency Medical Services
DX: F31.81 Bipolar II disorder (principal); R45.851 Suicidal ideations; Z20.822 Contact with and (suspected) exposure to COVID-19; F41.9 Anxiety disorder, unspecified; R44.0 Auditory hallucinations; F60.3 Borderline personality disorder; F43.10 Post-traumatic stress disorder, unspecified; E11.9 Type 2 diabetes mellitus without complications; E78.5 Hyperlipidemia, unspecified; F12.90 Cannabis use, unspecified, uncomplicated; F17.210 Nicotine dependence, cigarettes, uncomplicated; Z91.52 Personal history of nonsuicidal self-harm; Z79.02 Long term (current) use of antithrombotics/antiplatelets; Z79.84 Long term (current) use of oral hypoglycemic drugs; Z79.899 Other long term (current) drug therapy
CPT/HCPCS: 80307; 87635; 99283

== ENCOUNTER 2022-09-17 19:57 | Emergency (ER) | payer MEDICARE, MEDICAID, SELFPAY ==
[2022-09-17 20:10] VITALS: BP 165/75; PULSE 104; RESP 16; O2SAT 98; BMI 36.0
[2022-09-17 20:32] LABS: Appearance Urine Clear; Color Urine Yellow; Glucose Urine UA Negative (Negative); Leukocyte Esterase Urine Negative (Negative); Nitrite Urine Negative (Negative); PH 5.5 (5.0-9.0); UMIC TRIGGER UACC YES; Urine Blood Large (3+) (Negative); Urine Ketones Negative (Negative); Urine Protein Negative (Neg-Trace)
[2022-09-17 20:38] LABS: Bacteria Urine None Seen (None Seen); Hyaline Casts Urine 0-2 /LPF (0-2); RBC Urine >20 /HPF (0-2); Squamous Epithelial Cell Urine 0-2 /HPF (0-2); WBC Urine 0-5 /HPF (0-5)
[2022-09-17 20:41] LABS: Amphetamine Screen Urine Not Detected (Not Detect); Barbiturates, Urine Not Detected (Not Detect); Benzodiazepines Screen Urine Not Detected (Not Detect); Cannabinoid Screen Urine Not Detected (Not Detect); Cocaine Screen Urine Not Detected (Not Detect); Fentanyl, urine POSITIVE (Not Detect); Opiate Screen Urine Not Detected (Not Detect); Phencyclidine Screen Urine Not Detected (Not Detect)
--- NOTE | 2022-09-17 21:03 | ED.PSYCH ---
HPI - Psych General Chief Complaint: Psychiatric Symptoms Stated Complaint: Crisis Source: patient and EMS Mode of arrival: EMS Limitations: no limitations History of Present Illness HPI Narrative: 46-year-old female past medical history significant personality depression bipolar 2 with melancholic peatures, PTSD, DM, GERD presents via ambulance with comand auditory hallucination, superficial self-inflicted wounds and anxiety. According to patient she became anxious broke a glass plate and started cutting herself superficially to left arm, abdomen and left lower extremity. Patient tells me she did this because she was hearing voices however she tells me she was not feeling suicidal at that time. Patient denies visual, auditory and tactile hallucinations at this time. She tells me symptoms voices coming go but this is normal for her. She denies suicidal and homicidal ideation. Denying medical complaints. Telling me she feels much better. She tells me sometimes she cut so she can feel emotions. Related Data Home Medications Medication Instructions Recorded Confirmed atorvastatin 10 mg tablet 10 mg PO DAILY 05/29/21 09/12/22 metformin 500 mg tablet 1 tab PO BID 05/29/21 09/12/22 montelukast 10 mg tablet 1 tab PO BEDTIME 05/29/21 09/12/22 fluphenazine HCl 5 mg tablet 1 tab PO BEDTIME 03/19/22 09/12/22 chlorpromazine 25 mg tablet 3 tab PO DAILY@1700 06/17/22 09/12/22 fluoxetine 20 mg capsule 60 mg PO DAILY 07/30/22 09/12/22 lisinopril 5 mg tablet 1 tab PO DAILY 07/30/22 09/12/22 nicotine (polacrilex) 4 mg gum 1 ea PO Q2H PRN Smoking Cessation 07/30/22 09/12/22 sennosides 8.6 mg tablet (senna) 8.6 mg PO BEDTIME PRN Constipation 09/11/22 09/12/22 Previous Rx's Medication Instructions Recorded prazosin 1 mg capsule 4 mg PO BEDTIME 30 days #120 caps 10/18/21 nitrofurantoin 100 mg PO Q12H 7 days #14 caps 09/07/22 monohydrate/macrocrystals 100 mg capsule (Macrobid) Allergies Allergy/AdvReac Type Severity Reaction Status Date / Time Fish Containing Products Allergy Severe ANAPHYLAXIS Verified 08/29/22 12:26 codeine [Codeine] Allergy Intermediate RASH Verified 08/29/22 12:26 Penicillins Allergy Intermediate RASH Verified 08/29/22 12:26 prednisone [Prednisone] Allergy Intermediate RASH Verified 08/29/22 12:26 Sulfa (Sulfonamide Allergy Intermediate RASH Verified 08/29/22 12:26 Antibiotics) [Sulfa (Sulfonamides)] azithromycin [AZITHROMYCIN] AdvReac Severe RASH Verified 08/29/22 12:26 ziprasidone [From Geodon] AdvReac Intermediate dysuria, Verified 08/29/22 12:26 rash Review of Systems Review of Systems: Constitutional : No Weight loss, No Fever, No Chills, No Fatigue, No Malaise ENT/Mouth : No sore throat, No Rhinorrhea Eyes: No Eye Pain, No Swelling, No Redness Cardiovascular : No Chest Pain, No SOB, No Dyspnea on Exertion, No Orthopnea, No Edema, No Palpitations Respiratory : No Cough, No Sputum, No Wheezing Gastrointestinal : No Nausea, No Vomiting, No Diarrhea, No Constipation, No abdominal Pain, No Hematochezia, No Melena Genitourinary : No Dysuria, No Urinary Frequency, No Hematuria, Musculoskeletal : No joint pain, No Myalgias, No Joint Swelling Skin : No Skin Lesions, No rash, + laceration Neuro : No Weakness, No Numbness, No Dizziness, No Headache Psych : + Anxiety/Panic, No Depression, No SI/HI Heme/Lymph: No Bruising, No Bleeding,No Lymphadenopathy Endocrine : No Polyuria, No Polydipsia All other systems reviewed and are negative Yes all other systems are reviewed and are negative [facility] Past Medical History Attestation statement: The following information was validated with the patient. 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: Other Household Members Other:: halfway Housing: Other Housing Other:: halfway Do you presently have visiting nurse or other home services: No Unable to assess alcohol history related to: Unknown Alcohol intake: unknown Patient Tobacco Use Status: Current everyday Tobacco user Tobacco use type: Cigarette Cigarette Packs Per Day: 1 Cigarettes Per Day: 16 Years Smoked: 20 e-Cigarette/Vaping Use: Never Used Substance Use Type: Marijuana Advance Directives: No Advance Directives Information Provided: Yes service: No Current occupational status: unemployed and disabled Sexual orientation: Don't Know Physical Exam Vital Signs: Vital Signs: Last Vital Signs Pulse 104 H 09/17/22 20:10 Resp 16 09/17/22 20:10 BP 165/75 H 09/17/22 20:10 Pulse Ox 98 09/17/22 20:10 O2 Del Method 09/17/22 20:10 BMI result Body Mass Index 36.0 Vital signs stable Appearance: Alert.? Oriented X3.? No acute distress.? Head: Normocephalic, atraumatic, no step-offs or deformities Eyes: Pupils equal, round and reactive to light.? CVS: Normal heart rate and rhythm.? Pulses normal.? Respiratory: No respiratory distress.? Breath sounds normal.? Abdomen: Soft and nontender.? Skin: Skin warm and dry.? Normal skin color.? Normal skin turgor.? Extremities: No lower extremity edema.? No calf ttp. 5/5 strength to bilateral upper and lower extremities + superficial self-inflicted wounds to left wrist, abdomen, left lower extremity. Neuro: Oriented X 3.? No motor deficit.? No sensory deficit. CN 2-12 intact Course Reevaluation(s) Reevaluation #1: Bacitracin applied to wounds. Patient up-to-date on tetanus. Patient met with the care team, Roxanne, denies SI and HI, requesting to go back to her halfway, not reporting auditory, visual or tactile hallucinations. Patient tells me she is feeling better. Very optimistic. At this time patient will be discharged. Educated on worrisome signs and symptoms and when to return. Time: 21:07 MDM - Psych MDM Narrative Medical decision making narrative: 2100 Patient presents with anxiety, command auditory hallucinations and self-inflicted wounds to left upper extremity left lower extremity and abdomen. Denies SI and HI. Physical examination was superficial wounds to left upper extremity, left lower extremity and abdomen. Regular rate and rhythm. Neuro nonfocal. Abdomen soft nontender nondistended. Clear lungs. Likely anxiety. No medical complaints, therefore no need for laboratory studies, patient had them done 09/03/2022 and revealed no acute findings. Patient will be seen by the care team. Medical Records Attestation: I reviewed the patient's medical records. Lab Data Attestation: I reviewed the patient's lab results. Labs: Lab Results 09/17/22 09/17/22 Range/Units 20:25 20:25 Urine Color Yellow Urine Appearance Clear Urine pH 5.5 (5.0-9.0) Ur Specific [place] 1.010 (1.005-1.025) Urine Protein Negative (Neg-Trace) mg/dL Urine Glucose (UA) Negative (Negative) mg/dL Urine Ketones Negative (Negative) mg/dL Urine Blood Large (3+) H (Negative) Urine Nitrite Negative (Negative) Ur Leukocyte Esterase Negative (Negative) Urine RBC >20 H (0-2) /HPF Urine WBC 0-5 (0-5) /HPF Ur Squamous Epith Cells 0-2 (0-2) /HPF Urine Bacteria None Seen (None Seen) Hyaline Casts 0-2 (0-2) /LPF Urine Opiates Screen Not Detected (Not Detect) Urine Fentanyl Screen POSITIVE H (Not Detect) Ur Barbiturates Screen Not Detected (Not Detect) Ur Phencyclidine Scrn Not Detected (Not Detect) Ur Amphetamines Screen Not Detected (Not Detect) U Benzodiazepines Scrn Not Detected (Not Detect) Urine Cocaine Screen Not Detected (Not Detect) U Marijuana (THC) Screen Not Detected (Not Detect) Discharge Plan Discharge Clinical Impression: Self-inflicted laceration of left wrist, Acute anxiety Patient Disposition: Home, Self-Care Instructions: Laceration (ED), Anxiety (ED) Additional Instructions: Take your medications as prescribed. If you were prescribed antibiotics today, it is important that you take your medication to their entirety, do not skip any doses, do not finish them early. Follow-up with your primary care provider this week. Return to the emergency department with new or worsening symptoms. Such as fevers, chills, chest pain, shortness of breath, nausea, vomiting, dizziness, headache, vision changes, lethargy, suicidal ideation, homicidal ideation In case of emergency call 911 Prescriptions: No Action metformin 500 mg tablet 1 tab PO BID atorvastatin 10 mg tablet 10 mg PO DAILY montelukast 10 mg tablet 1 tab PO BEDTIME chlorpromazine 25 mg tablet 3 tab PO DAILY@1700 nicotine (polacrilex) 4 mg gum 1 ea PO Q2H PRN (Reason: Smoking Cessation) lisinopril 5 mg tablet 1 tab PO DAILY fluoxetine 20 mg capsule 60 mg PO DAILY nitrofurantoin monohyd/m-cryst [Macrobid] 100 mg capsule 100 mg PO Q12H 7 Days Qty: 14 0RF Rx Instructions: must administer with a meal/food prazosin 1 mg Capsule 4 mg PO BEDTIME 30 Days Qty: 120 0RF Protocol: Hold for SBP< HOLD for SBP < : 90 fluphenazine HCl 5 mg tablet 1 tab PO BEDTIME sennosides [senna] 8.6 mg Tablet 8.6 mg PO BEDTIME PRN (Reason: Constipation) Referrals: [facility] [Provider Group] Physician,Unknown J [Primary Care Provider] - 2 days Stand Alone Forms: Work/School Release
== END 2022-09-17 21:24 | disposition home or self-care (01) ==
PROVIDERS: Emergency Provider Internal Medicine
DX: S60.812A Abrasion of left wrist, initial encounter (principal); F33.1 Major depressive disorder, recurrent, moderate; F41.1 Generalized anxiety disorder; F43.0 Acute stress reaction; X78.9XXA Intentional self-harm by unspecified sharp object, initial encounter; Y93.9 Activity, unspecified; Y92.9 Unspecified place or not applicable; Y99.9 Unspecified external cause status; F17.210 Nicotine dependence, cigarettes, uncomplicated; Z71.6 Tobacco abuse counseling; Z79.899 Other long term (current) drug therapy
CPT/HCPCS: 80307; 81001; 99283

== ENCOUNTER 2022-09-18 18:47 | Emergency (ER) | payer MEDICARE, MEDICAID, SELFPAY ==
[2022-09-18 18:55] VITALS: BP 158/93; PULSE 118; RESP 20; TEMP 36.1; O2SAT 97; BMI 36.8
[2022-09-18 19:32] LABS: Amphetamine Screen Urine Not Detected (Not Detect); Barbiturates, Urine Not Detected (Not Detect); Benzodiazepines Screen Urine Not Detected (Not Detect); Cannabinoid Screen Urine Not Detected (Not Detect); Cocaine Screen Urine Not Detected (Not Detect); Fentanyl, urine Not Detected (Not Detect); Opiate Screen Urine Not Detected (Not Detect); Phencyclidine Screen Urine Not Detected (Not Detect)
[2022-09-18 19:42] LABS: COVID-19 Test Negative (Negative); IDNOW Serial# 16C4AD1C
[2022-09-18 20:20] LABS: MANUAL DIFF FLAG NO
[2022-09-18 20:25] LABS: Basophils Percent Auto 0.6 % (0-2); Eosinophils Absolute Auto 0.1 X10*3/uL (0.0-0.4); Eosinophils Percent Auto 1.9 % (0-4); Hematocrit 33.9 % (37.0-47.0); Hemoglobin 10.7 g/dl (12.0-16.0); Imm Gran Abs Auto 0.03 X10*3/uL (0.00-0.03); Imm Gran Pct Auto 0.4 % (0.0-0.4); Lymphocytes Absolute Auto 1.1 X10*3/uL (1.2-4.9); Lymphocytes Percent Auto 15.4 % (20-40); Mean Corpuscular HGB Conc 31.6 g/dl (31.0-35.0); Mean Corpuscular Hemoglobin 26.8 pg (27.0-33.0); Mean Corpuscular Volume 84.8 fL (80.0-98.0); Mean Platelet Volume 9.6 fL (9.4-12.3); Monocytes Absolute Auto 0.5 X10*3/uL (0.1-1.2); Monocytes Percent Auto 6.5 % (2-11); Neutrophils Absolute Auto 5.5 x10*3/uL (2.0-8.3); Neutrophils Percent Auto 75.2 % (45-73); Platelet Count 299 X10*3/uL (160-400); Red Cell Distribution Width 15.1 % (11.0-16.0); White Blood Count 7.3 X10*3/uL (4.8-10.8)
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
[2022-09-18 20:53] LABS: Acetaminophen LAB < 1 mcg/mL (<30); Anion Gap 16 (12-20); Blood Urea Nitrogen 7 mg/dL (9-16); Calcium 9.5 mg/dL (8.4-10.2); Carbon Dioxide 23 mmol/L (22-29); Chloride 103 mmol/L (96-108); Creatinine Clr Calc Pharmacy 105.7; Estimated Glomerular Filt Rate > 60; Ethanol < 10 mg/dL; Glucose Random 144 mg/dL (60-115); Potassium 4.1 mmol/L (3.3-5.1); Salicylate < 5.0 mg/dL (15-30); Sodium 138 mmol/L (135-145)
[2022-09-18 20:55] VITALS: PULSE 97; RESP 17
--- NOTE | 2022-09-19 14:16 | MHC.CARE ---
CARE Team reaches out to provide a follow up call to pt. Message left.
--- NOTE | 2022-09-20 10:58 | MHC.CARE ---
Planned follow up/check-in call made to patient. She reported that [facility] co-response clinician was just leaving the house after meeting with patient, I work up hearing voices and am really struggling. Stated that yesterday was particularly hard and she spent the afternoon and evening at the [facility] office in [place] which she found helpful and may go back today for additional support. Has plans to work tomorrow and is making plans with a [facility] peer to do something this week as well.
== END 2022-09-18 21:32 | disposition home or self-care (01) ==
PROVIDERS: Physician Assistant; Emergency Provider Emergency Medicine; PCP Nurse Practitioner Family
DX: F41.9 Anxiety disorder, unspecified (principal); R00.0 Tachycardia, unspecified; Z20.822 Contact with and (suspected) exposure to COVID-19; D64.9 Anemia, unspecified; F31.81 Bipolar II disorder; F60.3 Borderline personality disorder; R44.0 Auditory hallucinations; F43.10 Post-traumatic stress disorder, unspecified; E11.9 Type 2 diabetes mellitus without complications; E78.5 Hyperlipidemia, unspecified; F17.210 Nicotine dependence, cigarettes, uncomplicated; F12.90 Cannabis use, unspecified, uncomplicated; Z91.52 Personal history of nonsuicidal self-harm; Z79.02 Long term (current) use of antithrombotics/antiplatelets; Z79.84 Long term (current) use of oral hypoglycemic drugs
CPT/HCPCS: 36415; 80048; 80143; 80179; 80307; 82077; 85025; 87635; 99283; 99284

== ENCOUNTER 2022-09-20 17:16 | Emergency (ER) | payer MEDICARE, MEDICAID, SELFPAY ==
[2022-09-20 17:20] VITALS: BP 121/76; PULSE 110; PULSE 90; RESP 20; TEMP 37; O2SAT 96; O2SAT 97; BMI 36.3
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
[2022-09-20 17:58] LABS: MANUAL DIFF FLAG NO
[2022-09-20 18:02] LABS: Amphetamine Screen Urine Not Detected (Not Detect); Barbiturates, Urine Not Detected (Not Detect); Benzodiazepines Screen Urine Not Detected (Not Detect); Cannabinoid Screen Urine Not Detected (Not Detect); Cocaine Screen Urine Not Detected (Not Detect); Fentanyl, urine POSITIVE (Not Detect); Opiate Screen Urine Not Detected (Not Detect); Phencyclidine Screen Urine Not Detected (Not Detect)
[2022-09-20 18:05] LABS: COVID-19 Test Negative (Negative); IDNOW Serial# BCCEAD1C
[2022-09-20 18:09] LABS: Basophils Percent Auto 0.7 % (0-2); Eosinophils Absolute Auto 0.3 X10*3/uL (0.0-0.4); Eosinophils Percent Auto 5.3 % (0-4); Hemoglobin 10.4 g/dl (12.0-16.0); Imm Gran Abs Auto 0.02 X10*3/uL (0.00-0.03); Imm Gran Pct Auto 0.4 % (0.0-0.4); Lymphocytes Absolute Auto 1.4 X10*3/uL (1.2-4.9); Lymphocytes Percent Auto 24.6 % (20-40); Mean Corpuscular HGB Conc 31.5 g/dl (31.0-35.0); Mean Corpuscular Hemoglobin 26.7 pg (27.0-33.0); Mean Corpuscular Volume 84.8 fL (80.0-98.0); Mean Platelet Volume 9.8 fL (9.4-12.3); Monocytes Absolute Auto 0.7 X10*3/uL (0.1-1.2); Neutrophils Absolute Auto 3.2 x10*3/uL (2.0-8.3); Platelet Count 285 X10*3/uL (160-400); Red Blood Count 3.89 X10*6/uL (4.20-5.50); Red Cell Distribution Width 15.1 % (11.0-16.0); White Blood Count 5.5 X10*3/uL (4.8-10.8)
[2022-09-20 18:20] LABS: Acetaminophen LAB < 1 mcg/mL (<30); Anion Gap 13 (12-20); Blood Urea Nitrogen 9 mg/dL (9-16); Calcium 9.4 mg/dL (8.4-10.2); Carbon Dioxide 25 mmol/L (22-29); Chloride 104 mmol/L (96-108); Creatinine Clr Calc Pharmacy 108.2; Estimated Glomerular Filt Rate > 60; Glucose Random 93 mg/dL (60-115); Potassium 4.1 mmol/L (3.3-5.1); Salicylate < 5.0 mg/dL (15-30); Sodium 138 mmol/L (135-145)
== END 2022-09-20 19:10 | disposition home or self-care (01) ==
PROVIDERS: Physician Assistant; Emergency Provider Internal Medicine; PCP Nurse Practitioner Family
DX: F33.1 Major depressive disorder, recurrent, moderate (principal); R45.851 Suicidal ideations; F41.1 Generalized anxiety disorder; F43.0 Acute stress reaction; F17.210 Nicotine dependence, cigarettes, uncomplicated; Z20.822 Contact with and (suspected) exposure to COVID-19; Z71.6 Tobacco abuse counseling; Z79.899 Other long term (current) drug therapy
CPT/HCPCS: 80048; 80143; 80179; 80307; 85025; 87635; 99284; 99285

== ENCOUNTER 2022-09-22 18:20 | Emergency (ER) | payer MEDICARE, MEDICAID, SELFPAY ==
[2022-09-22 18:26] VITALS: BP 114/78; BP 128/84; PULSE 110; PULSE 111; RESP 14; TEMP 36.8; O2SAT 97; BMI 34.9
--- NOTE | 2022-09-22 18:29 | ED_ITS ---
HPI - Psych General Chief Complaint: Psychiatric Symptoms Stated Complaint: Crisis Source: patient and EMS Mode of arrival: EMS Limitations: no limitations History of Present Illness HPI Narrative: 46-year-old female presents via EMS for auditory hallucinations and suicidal ideation. MD complaint: suicidal ideation and hallucinations Onset (ago): year(s) Duration: constant History of same: Yes Relieving factors: none Associated psychiatric symptoms: depression, suicidal ideation and auditory hallucinations If self harm: admits thoughts of self harm, has plan and has acted on plan Related Data Home Medications Medication Instructions Recorded Confirmed atorvastatin 10 mg tablet 10 mg PO DAILY 05/29/21 09/12/22 metformin 500 mg tablet 1 tab PO BID 05/29/21 09/12/22 montelukast 10 mg tablet 1 tab PO BEDTIME 05/29/21 09/12/22 fluphenazine HCl 5 mg tablet 1 tab PO BEDTIME 03/19/22 09/12/22 chlorpromazine 25 mg tablet 3 tab PO DAILY@1700 06/17/22 09/12/22 fluoxetine 20 mg capsule 60 mg PO DAILY 07/30/22 09/12/22 lisinopril 5 mg tablet 1 tab PO DAILY 07/30/22 09/12/22 nicotine (polacrilex) 4 mg gum 1 ea PO Q2H PRN Smoking Cessation 07/30/22 09/12/22 sennosides 8.6 mg tablet (senna) 8.6 mg PO BEDTIME PRN Constipation 09/11/22 09/12/22 Previous Rx's Medication Instructions Recorded prazosin 1 mg capsule 4 mg PO BEDTIME 30 days #120 caps 10/18/21 nitrofurantoin 100 mg PO Q12H 7 days #14 caps 09/07/22 monohydrate/macrocrystals 100 mg capsule (Macrobid) Allergies Allergy/AdvReac Type Severity Reaction Status Date / Time Fish Containing Products Allergy Severe ANAPHYLAXIS Verified 08/29/22 12:26 codeine [Codeine] Allergy Intermediate RASH Verified 08/29/22 12:26 Penicillins Allergy Intermediate RASH Verified 08/29/22 12:26 prednisone [Prednisone] Allergy Intermediate RASH Verified 08/29/22 12:26 Sulfa (Sulfonamide Allergy Intermediate RASH Verified 08/29/22 12:26 Antibiotics) [Sulfa (Sulfonamides)] azithromycin [AZITHROMYCIN] AdvReac Severe RASH Verified 08/29/22 12:26 ziprasidone [From Geodon] AdvReac Intermediate dysuria, Verified 08/29/22 12:26 rash Review of Systems Review of Systems: Constitutional: No Fever, No Chills s Cardiovascular: No Chest Pain, No SOB Respiratory: No Cough, No Sputum, No Dyspnea Gastrointestinal: No Nausea, No Vomiting, No Diarrhea Genitourinary: No Dysuria, No Urinary Frequency, No Hematuria Musculoskeletal: No Myalgias Skin: Multiple superficial self-inflicted wounds to arms Neuro: No Weakness, No Numbness, No Paresthesias, No Dizziness, No Headache Psych: positive Anxiety, positive Depression, positive SI Yes all other systems are reviewed and are negative PMFSH Past Medical History Attestation statement: The following information was validated with the patient. Source: old records reviewed Medical History Acetaminophen overdose Borderline personality disorder Bronchitis Depression Diabetes type 2, controlled Full body hives GERD (gastroesophageal reflux disease) History of attempted suicide History of non-suicidal self-harm Hyperlipidemia Hypomagnesemia Major depression MDD (major depressive disorder), recurrent episode, severe Mood disorder Overdose PTSD (post-traumatic stress disorder) Suicide attempt Suicide attempt by acetaminophen overdose Social History Social History Household Members: Other Household Members Other:: retirement Housing: Other Housing Other:: retirement Do you presently have visiting nurse or other home services: No Unable to assess alcohol history related to: Unknown Alcohol intake: never Patient Tobacco Use Status: Current everyday Tobacco user Tobacco use type: Cigarette Cigarette Packs Per Day: 1 Cigarettes Per Day: 16 Years Smoked: 20 Smoked in Last 30 Days: Yes e-Cigarette/Vaping Use: Never Used Use of substances other than those prescribed or required for medical reasons: No Substance Use Type: Marijuana Advance Directives: No Advance Directives Information Provided: No Healthcare Proxy: No Guardian: No service: No Current occupational status: unemployed and disabled Sexual orientation: Don't Know Physical Exam Vital Signs: Vital Signs: Last Vital Signs Temp 98.2 F 09/22/22 18:26 Pulse 111 H 09/22/22 18:26 Resp 14 09/22/22 18:26 BP 114/78 09/22/22 18:26 Pulse Ox 97 09/22/22 18:26 O2 Del Method 12/09/22 18:26 BMI result Body Mass Index 34.9 vss Appearance: Alert.? Oriented X3.? No acute distress.? Head:? Normocephalic, atraumatic, no step-offs or deformities Eyes: Pupils equal, round and reactive to light.? CVS: Normal heart rate and rhythm.? Pulses normal.? Respiratory: No respiratory distress.? Breath sounds normal.? Abdomen: Soft and nontender.? Skin: Skin warm and dry.? Normal skin color.? Normal skin turgor.? Extremities: No lower extremity edema.? Gait well-balanced well coordinated. Neuro: Oriented X 3.? No motor deficit.? No sensory deficit. CN 2-12 intact Course Course Course Narrative: 46-year-old female presents via EMS for suicidal ideation, self inflicted superficial injuries, and auditory hallucinations telling her to hurt herself. Patient presents to this facility on a daily basis. Will follow the care plan in place. Patient does not report any medical complaints at this time. 19:38 care team consult complete. Plan of care is for discharge home Medical Decision Making Medical Decision Making Differential Diagnoses: Differential diagnosis (Suicidal ideation, auditory hallucinations, psychosis) Consideration of admission/observation: Consideration of Admission/Observation (Patient does not require admission for this evaluation) Discussion of management with other physician/healthcare provider/other source (e.g., hospitalist, sales enablement consultant, behavioral health): Discussion w/other physician/healthcare provider Management of the patient was discussed with: Behavorial Health Provider My interpretation is Lab Attestation: I reviewed the patient's lab results. Discharge Plan Discharge Clinical Impression: Suicidal ideation, Acute anxiety Patient Disposition: Home, Self-Care Instructions: Anxiety (ED) Additional Instructions: Follow-up with outpatient psychiatry as scheduled. Thank you for choosing this emergency department for evaluation. Please follow-up with primary care physician as needed. Return to the emergency department for any new, concerning, or worsening symptoms. Prescriptions: No Action metformin 500 mg tablet 1 tab PO BID atorvastatin 10 mg tablet 10 mg PO DAILY montelukast 10 mg tablet 1 tab PO BEDTIME chlorpromazine 25 mg tablet 3 tab PO DAILY@1700 nicotine (polacrilex) 4 mg gum 1 ea PO Q2H PRN (Reason: Smoking Cessation) lisinopril 5 mg tablet 1 tab PO DAILY fluoxetine 20 mg capsule 60 mg PO DAILY nitrofurantoin monohyd/m-cryst [Macrobid] 100 mg capsule 100 mg PO Q12H 7 Days Qty: 14 0RF Rx Instructions: must administer with a meal/food prazosin 1 mg Capsule 4 mg PO BEDTIME 30 Days Qty: 120 0RF Protocol: Hold for SBP< HOLD for SBP < : 90 fluphenazine HCl 5 mg tablet 1 tab PO BEDTIME sennosides [senna] 8.6 mg Tablet 8.6 mg PO BEDTIME PRN (Reason: Constipation) Interventions: [place]-Suicide Risk Severity Scale Last Done: 09/22/22 18:34 ED Discharge Assessment Last Done: 09/22/22 19:57 Discharge Date/Time: 09/22/22 20:07
[2022-09-22 19:38] LABS: Influenza A PCR NEGATIVE (Negative); Influenza B PCR NEGATIVE (Negative); Resp Syncy Virus RNA Qual PCR NEGATIVE (Negative); SARS COV2 PCR INHOUSE NEGATIVE (Negative)
== END 2022-09-22 20:07 | disposition home or self-care (01) ==
PROVIDERS: Nurse Practitioner Family; Emergency Provider Emergency Medicine
DX: F33.1 Major depressive disorder, recurrent, moderate (principal); R45.851 Suicidal ideations; F41.1 Generalized anxiety disorder; F43.0 Acute stress reaction; Z20.822 Contact with and (suspected) exposure to COVID-19; F17.210 Nicotine dependence, cigarettes, uncomplicated; Z71.6 Tobacco abuse counseling; Z79.899 Other long term (current) drug therapy
CPT/HCPCS: 0241U; 99283; 99284

== ENCOUNTER 2022-09-23 14:26 | Emergency (ER) | payer MEDICARE, MEDICAID, SELFPAY ==
--- NOTE | 2022-09-23 | ECG_ITS ---
Test Reason : ANTIPSYCHOTICS Blood Pressure : / mmHG Vent. Rate : 085 BPM Atrial Rate : 085 BPM P-R Int : 184 ms QRS Dur : 088 ms QT Int : 382 ms P-R-T Axes : 058 053 059 degrees QTc Int : 454 ms Normal sinus rhythm Normal ECG When compared with ECG of 29-JUL-2022 19:11, No significant change was found Referred By: Jaimie Carmona Electronically Signed By:DONALD HOOKER MD
[2022-09-23 14:39] VITALS: BP 113/81; PULSE 121; RESP 18; TEMP 36.8; O2SAT 97; BMI 54.8
[2022-09-23 14:41] VITALS: RESP 18
--- NOTE | 2022-09-23 14:54 | ED_ITS ---
HPI - Psych General Chief Complaint: Psychiatric Symptoms Stated Complaint: si, section 12 Time Seen by Provider: 09/23/22 14:35 Source: patient and EMS Mode of arrival: EMS History of Present Illness HPI Narrative: 46-year-old female with a past medical history of borderline personality disorder, diabetes, GERD, HLD, hypomagnesemia, major depressive disorder, mood disorder, PTSD, suicide attempts, presenting to the ED via EMS brought in on Section 12 from [facility] for suicidal ideations and hallucinations. Patient reports voices are telling her to hurt herself. Also reports visual hallucinations of seeing her father. Denies HI, ETOH/drug use MD complaint: suicidal ideation, feels depressed and hallucinations Onset (ago): hour(s) Related Data Home Medications Medication Instructions Recorded Confirmed atorvastatin 10 mg tablet 10 mg PO DAILY 05/29/21 09/23/22 metformin 500 mg tablet 1 tab PO BID 05/29/21 09/23/22 montelukast 10 mg tablet 1 tab PO BEDTIME 05/29/21 09/23/22 fluphenazine HCl 5 mg tablet 1 tab PO BEDTIME 03/19/22 09/23/22 chlorpromazine 25 mg tablet 3 tab PO DAILY@1700 06/17/22 09/23/22 fluoxetine 20 mg capsule 60 mg PO DAILY 07/30/22 09/23/22 lisinopril 5 mg tablet 1 tab PO DAILY 07/30/22 09/23/22 nicotine (polacrilex) 4 mg gum 1 ea PO Q2H PRN Smoking Cessation 07/30/22 sennosides 8.6 mg tablet (senna) 8.6 mg PO BEDTIME PRN Constipation 09/11/22 09/23/22 trazodone 150 mg tablet 1 tab PO BEDTIME 09/23/22 09/23/22 Previous Rx's Medication Instructions Recorded prazosin 1 mg capsule 4 mg PO BEDTIME 30 days #120 caps 10/18/21 nitrofurantoin 100 mg PO Q12H 7 days #14 caps 09/07/22 monohydrate/macrocrystals 100 mg capsule (Macrobid) Allergies Allergy/AdvReac Type Severity Reaction Status Date / Time Fish Containing Products Allergy Severe ANAPHYLAXIS Verified 08/29/22 12:26 codeine [Codeine] Allergy Intermediate RASH Verified 08/29/22 12:26 Penicillins Allergy Intermediate RASH Verified 08/29/22 12:26 prednisone [Prednisone] Allergy Intermediate RASH Verified 08/29/22 12:26 Sulfa (Sulfonamide Allergy Intermediate RASH Verified 08/29/22 12:26 Antibiotics) [Sulfa (Sulfonamides)] azithromycin [AZITHROMYCIN] AdvReac Severe RASH Verified 08/29/22 12:26 ziprasidone [From Geodon] AdvReac Intermediate dysuria, Verified 08/29/22 12:26 rash Review of Systems Review of Systems: Constitutional: No Fever, No Chills, No Fatigue, No Malaise ENT/Mouth: No Ear Pain, No sore throat, No Rhinorrhea, No Swallowing Difficulty Eyes: No Eye Pain, No Swelling, No Redness Cardiovascular: No Chest Pain, No SOB Respiratory: No Cough, No Dyspnea Gastrointestinal: No Nausea, No Vomiting, No Diarrhea, No Constipation, No Abdominal pain Genitourinary: No Dysuria, No Urinary Frequency, No Hematuria Musculoskeletal: No joint pain, No Myalgias Skin: No Skin Lesions, No rash Neuro: No Weakness, No Headache Psych: No Anxiety/Panic, + Depression, + SI, No HI, +AH/VH, No Social Issues Yes all other systems are reviewed and are negative Constitutional: Constitutional: Reports as per [facility] Past Medical History Attestation statement: The following information was validated with the patient. Medical History Acetaminophen overdose Borderline personality disorder Bronchitis Depression Diabetes type 2, controlled Full body hives GERD (gastroesophageal reflux disease) History of attempted suicide History of non-suicidal self-harm Hyperlipidemia Hypomagnesemia Major depression MDD (major depressive disorder), recurrent episode, severe Mood disorder Overdose PTSD (post-traumatic stress disorder) Suicide attempt Suicide attempt by acetaminophen overdose Social History Social History Household Members: Other Household Members Other:: intermediate Housing: Other Housing Other:: intermediate Do you presently have visiting nurse or other home services: No Unable to assess alcohol history related to: Unknown Alcohol intake: never Patient Tobacco Use Status: Current everyday Tobacco user Tobacco use type: Cigarette Cigarette Packs Per Day: 1 Cigarettes Per Day: 16 Years Smoked: 20 Smoked in Last 30 Days: No e-Cigarette/Vaping Use: Never Used Use of substances other than those prescribed or required for medical reasons: No Substance Use Type: Marijuana Advance Directives: No Advance Directives Information Provided: No service: No Current occupational status: unemployed and disabled Sexual orientation: Don't Know Physical Exam Vital Signs: Vital Signs: Last Vital Signs Temp 98.3 F 09/23/22 14:39 Pulse 121 H 09/23/22 14:39 Resp 18 09/23/22 16:00 BP 113/81 09/23/22 14:39 Pulse Ox 97 09/23/22 14:39 O2 Del Method 09/23/22 14:39 BMI result Body Mass Index 54.8 Const: General: cooperative, healthy appearing, no acute distress, alert and anxious Limitations: no limitations HEENT: Head: Yes normal to inspection and Yes atraumatic Ears: hearing grossly normal bilaterally General nose exam: Normal external nose present Face and sinus: Yes normal facial exam Throat: Yes posterior oropharynx normal, Yes tonsils normal and Yes uvula midline Eyes: General: appearance normal, both eyes and all related structures Pupils: Equal, round and reactive pupils present EOM: EOMs intact bilaterally Neck: Neck: Yes normal visual inspection and Yes no meningeal signs Resp: Effort & Inspection: normal respiratory effort and no respiratory distress Auscultation: clear to auscultation bilaterally Cardio: Rate: regular rate Heart sounds: S1 normal heart sound present and S2 normal heart sound present GI: Inspection: Yes normal to inspection Palpation (GI): Soft to palpation, nontender, no guarding and not rigid Skin: Other: +superficial cuts noted to LUE Rashes: no rashes Neuro: General: gait normal, tone normal, moves all extremities, no meningeal signs, no focal motor deficits and CN's II-XI intact bilaterally Cranial nerves: Yes Equal, round and reactive pupils present Gait exam (Neuro): Normal gait present Extrem: General: Yes normal to inspection Psych: Speech and movement: Restless speech present Affect: Anxious affect present Attitude: cooperative Thought content: Suicidality present, no homicidality and Hallucination(s) present auditory and visual Course Course Course Narrative: -Patient is medically cleared, physician observation initiated at 1700 as patient needs more time for inpatient bed search -1800--ED care transferred to TIMI Bentley pending inpatient BS Medications Administered Generic Name Dose Route Start Last Admin Trade Name Freq PRN Reason Stop Dose Admin Chlorpromazine HCl 75 mg 09/23/22 17:00 09/23/22 17:10 Chlorpromazine Hcl 25 Mg Tablet PO 75 mg DAILY@1700 [facility] Administration Nitrofurantoin Macrocrystals 100 mg 09/23/22 16:45 09/23/22 17:10 Nitrofurantoin Monohyd/M-Cryst 100 Mg Capsule PO 100 mg Q12H YULY Administration Discontinued Medications Generic Name Dose Route Start Last Admin Trade Name Elmer PRN Reason Stop Dose Admin Lorazepam 2 mg 09/23/22 16:58 09/23/22 17:11 Lorazepam 1 Mg Tablet PO 09/23/22 16:59 2 mg ONCE ONE Administration Medical Decision Making Medical Decision Making MDM Narrative: 46-year-old female with a past medical history of borderline personality disorder, diabetes, GERD, HLD, hypomagnesemia, major depressive disorder, mood disorder, PTSD, suicide attempts, presenting to the ED via EMS brought in on Section 12 from [facility] for suicidal ideations and hallucinations. On exam tachycardic, pacing, anxious, suicidal. Superficial cuts noted to left forearm. Plan: [facility], [facility] Differential Diagnoses: Differential diagnosis (as above) Consideration of admission/observation: Consideration of Admission/Observation ([facility]) Lab Attestation: I reviewed the patient's lab results. Independent historian (e.g., spouse, EMS, friend): Independent historian (e.g., spouse, EMS, friend) Clinical information obtained from an independent historian. History obtained from or confirmed by: EMS Non-ED record review: Review of External (Non-ED) Record External record reviewed:: Inpatient record Discharge Plan Discharge Clinical Impression: Suicidal ideation, Hallucinations Patient Disposition: Still a Patient Prescriptions: No Action metformin 500 mg tablet 1 tab PO BID atorvastatin 10 mg tablet 10 mg PO DAILY montelukast 10 mg tablet 1 tab PO BEDTIME chlorpromazine 25 mg tablet 3 tab PO DAILY@1700 nicotine (polacrilex) 4 mg gum 1 ea PO Q2H PRN (Reason: Smoking Cessation) lisinopril 5 mg tablet 1 tab PO DAILY fluoxetine 20 mg capsule 60 mg PO DAILY nitrofurantoin monohyd/m-cryst [Macrobid] 100 mg capsule 100 mg PO Q12H 7 Days Qty: 14 0RF Rx Instructions: must administer with a meal/food prazosin 1 mg Capsule 4 mg PO BEDTIME 30 Days Qty: 120 0RF Protocol: Hold for SBP< HOLD for SBP < : 90 fluphenazine HCl 5 mg tablet 1 tab PO BEDTIME sennosides [senna] 8.6 mg Tablet 8.6 mg PO BEDTIME PRN (Reason: Constipation) trazodone 150 mg tablet 1 tab PO BEDTIME Interventions: [place]-Suicide Risk Severity Scale Last Done: 09/23/22 14:41
[2022-09-23 16:00] VITALS: RESP 18
[2022-09-23 16:04] LABS: Influenza A PCR NEGATIVE (Negative); Influenza B PCR NEGATIVE (Negative); Resp Syncy Virus RNA Qual PCR NEGATIVE (Negative); SARS COV2 PCR INHOUSE NEGATIVE (Negative)
--- NOTE | 2022-09-23 16:08 | PC.NURSE ---
Plastic drink container removed from pt due to pt breaking up top of container. Pt informed that disposable cups will be given at this time.
[2022-09-23 16:17] LABS: Amphetamine Screen Urine Not Detected (Not Detect); Barbiturates, Urine Not Detected (Not Detect); Benzodiazepines Screen Urine Not Detected (Not Detect); Cannabinoid Screen Urine Not Detected (Not Detect); Cocaine Screen Urine Not Detected (Not Detect); Fentanyl, urine POSITIVE (Not Detect); Opiate Screen Urine Not Detected (Not Detect); Phencyclidine Screen Urine Not Detected (Not Detect)
[2022-09-23 16:42] LABS: UPreg QC Valid YES; Urine Pregnancy NEGATIVE (NEGATIVE)
[2022-09-23] MEDS: Nitrofurantoin Monohyd/M-Cryst 100 MG CAPSULE PO (17:10)
[2022-09-23] MEDS: chlorproMAZINE HCl 25 MG TABLET 75 MG PO (17:10)
[2022-09-23] MEDS: LORazepam 1 MG TABLET 2 MG PO (17:11)
[2022-09-23] MEDS: fluPHENAZine HCl 5 MG TABLET PO (22:28)
[2022-09-23] MEDS: Prazosin HCL 1 MG CAPSULE 4 MG PO (22:28)
[2022-09-23] MEDS: metFORMIN HCl 500 MG TABLET PO (22:28)
[2022-09-23] MEDS: traZODone HCL 50 MG TABLET 150 MG PO (22:28)
[2022-09-23] MEDS: Montelukast Sodium 10 MG TABLET PO (22:28)
[2022-09-23 22:32] VITALS: BP 157/87; PULSE 81; RESP 19; TEMP 36.3; O2SAT 97
[2022-09-23] MEDS: Ibuprofen 800 MG TABLET PO (23:36)
[2022-09-23 23:37] VITALS: BP 156/102; PULSE 86; RESP 17; TEMP 36.4; O2SAT 98
[2022-09-24] MEDS: HaloperidoL 5 MG TABLET PO (01:04)
[2022-09-24] MEDS: LORazepam 1 MG TABLET 2 MG PO ×3 (01:04→18:29)
--- NOTE | 2022-09-24 01:09 | PC.NURSE ---
Patient was found pacing, appears restless, at time observed hitting her head against wall, provider notified/ordered Ativan 2 mg PO and Haldol 5 mg po administered as ordered/pending, patient is currently in bed, will continue to monitor.
[2022-09-24] MEDS: Nitrofurantoin Monohyd/M-Cryst 100 MG CAPSULE PO ×2 (04:12→18:29)
--- NOTE | 2022-09-24 06:26 | PC.NURSE ---
Patient was up whole night, just fall sleep at 0545, behavior non concerning at this but may escalate, medication compliant, disposition per [facility] is section 12 inpatient bed search, patient repeatedly expressed that she wanted to go inpatient this time, stated I need help, VSS, will continue to monitor.
[2022-09-24 07:50] VITALS: BP 150/92; PULSE 96; RESP 18; TEMP 36.6; O2SAT 96
[2022-09-24] MEDS: FLUoxetine HCl 20 MG CAPSULE 60 MG PO (08:09)
[2022-09-24] MEDS: HaloperidoL 5 MG TABLET 10 MG PO ×2 (08:10→18:29)
[2022-09-24] MEDS: metFORMIN HCl 500 MG TABLET PO ×2 (08:10→21:26)
[2022-09-24] MEDS: lisinopriL 5 MG TABLET PO (08:11)
[2022-09-24] MEDS: Atorvastatin Calcium 10 MG TABLET PO (08:11)
[2022-09-24 14:00] VITALS: RESP 16
--- NOTE | 2022-09-24 14:02 | PC.NURSE ---
Per [facility] Remains Inpt Bed search
[2022-09-24] MEDS: chlorproMAZINE HCl 25 MG TABLET 75 MG PO (18:28)
[2022-09-24] MEDS: fluPHENAZine HCl 5 MG TABLET PO (21:26)
[2022-09-24] MEDS: Montelukast Sodium 10 MG TABLET PO (21:26)
[2022-09-24] MEDS: Prazosin HCL 1 MG CAPSULE 4 MG PO (21:27)
[2022-09-24] MEDS: traZODone HCL 50 MG TABLET 150 MG PO (21:27)
[2022-09-25] MEDS: Nitrofurantoin Monohyd/M-Cryst 100 MG CAPSULE PO (03:48)
[2022-09-25 03:49] VITALS: BP 129/89; PULSE 90; RESP 16; TEMP 36.4; O2SAT 97
--- NOTE | 2022-09-25 06:11 | PC.NURSE ---
Patient slept through the night, no distress observed/reported, behavior non concerning, medication compliant, disposition per [facility] is section 12 inpatient bed search, VSS, will continue to monitor.
[2022-09-25 09:28] VITALS: BP 129/82; PULSE 90; RESP 17; TEMP 37.1; O2SAT 95
[2022-09-25] MEDS: lisinopriL 5 MG TABLET PO (09:30)
[2022-09-25] MEDS: metFORMIN HCl 500 MG TABLET PO (09:30)
[2022-09-25] MEDS: FLUoxetine HCl 20 MG CAPSULE 60 MG PO (09:30)
[2022-09-25] MEDS: Atorvastatin Calcium 10 MG TABLET PO (09:30)
--- NOTE | 2022-09-25 09:55 | PC.NURSE ---
routine morning medications given, calm and cooperative with care. ambulating around the unit with strong steady gait. [facility] evaluated patient this morning.
== END 2022-09-25 10:15 | disposition home or self-care (01) ==
PROVIDERS: Physician Assistant; Emergency Provider Emergency Medicine Emergency Medical Services
DX: R45.851 Suicidal ideations (principal); R44.1 Visual hallucinations; R44.0 Auditory hallucinations; R00.0 Tachycardia, unspecified; Z20.822 Contact with and (suspected) exposure to COVID-19; F31.81 Bipolar II disorder; F41.9 Anxiety disorder, unspecified; F12.90 Cannabis use, unspecified, uncomplicated; F60.3 Borderline personality disorder; E11.9 Type 2 diabetes mellitus without complications; E78.5 Hyperlipidemia, unspecified; F43.10 Post-traumatic stress disorder, unspecified; Z91.52 Personal history of nonsuicidal self-harm; F17.210 Nicotine dependence, cigarettes, uncomplicated; Z79.02 Long term (current) use of antithrombotics/antiplatelets; Z79.84 Long term (current) use of oral hypoglycemic drugs; Z79.899 Other long term (current) drug therapy
CPT/HCPCS: 0241U; 80307; 81025; 93005; 99285

== ENCOUNTER 2022-09-26 15:16 | Emergency (ER) | payer MEDICARE, MEDICAID, SELFPAY ==
[2022-09-26 15:40] VITALS: BP 118/79; PULSE 120; RESP 20; TEMP 36.4; O2SAT 98; BMI 35.9
--- NOTE | 2022-09-26 15:51 | ED.PSYCH ---
HPI - Psych General Chief Complaint: Psychiatric Symptoms Stated Complaint: DIZZY,URINE RETEN,HEARING VOICES Time Seen by Provider: 09/26/22 15:37 Source: patient Mode of arrival: EMS History of Present Illness HPI Narrative: The patient is well known to us multiple EDV Z the his psychiatric admission, she has history of borderline personality disorder, history of PTSD. She states today she has hearing voices and also she has difficult to urinate MD complaint: anxiety and hallucinations Onset (ago): day(s) (1) Duration: constant History of same: Yes Exacerbating factors: none Associated psychiatric symptoms: auditory hallucinations Associated symptoms: denies other symptoms Related Data Home Medications Medication Instructions Recorded Confirmed atorvastatin 10 mg tablet 10 mg PO DAILY 05/29/21 09/23/22 metformin 500 mg tablet 1 tab PO BID 05/29/21 09/23/22 montelukast 10 mg tablet 1 tab PO BEDTIME 05/29/21 09/23/22 fluphenazine HCl 5 mg tablet 1 tab PO BEDTIME 03/19/22 09/23/22 chlorpromazine 25 mg tablet 3 tab PO DAILY@1700 06/17/22 09/23/22 fluoxetine 20 mg capsule 60 mg PO DAILY 07/30/22 09/23/22 lisinopril 5 mg tablet 1 tab PO DAILY 07/30/22 09/23/22 nicotine (polacrilex) 4 mg gum 1 ea PO Q2H PRN Smoking Cessation 07/30/22 09/23/22 sennosides 8.6 mg tablet (senna) 8.6 mg PO BEDTIME PRN Constipation 09/11/22 09/23/22 trazodone 150 mg tablet 1 tab PO BEDTIME 09/23/22 09/23/22 Previous Rx's Medication Instructions Recorded prazosin 1 mg capsule 4 mg PO BEDTIME 30 days #120 caps 10/18/21 nitrofurantoin 100 mg PO Q12H 7 days #14 caps 09/07/22 monohydrate/macrocrystals 100 mg capsule (Macrobid) Allergies Allergy/AdvReac Type Severity Reaction Status Date / Time Fish Containing Products Allergy Severe ANAPHYLAXIS Verified 08/29/22 12:26 codeine [Codeine] Allergy Intermediate RASH Verified 08/29/22 12:26 Penicillins Allergy Intermediate RASH Verified 08/29/22 12:26 prednisone [Prednisone] Allergy Intermediate RASH Verified 08/29/22 12:26 Sulfa (Sulfonamide Allergy Intermediate RASH Verified 08/29/22 12:26 Antibiotics) [Sulfa (Sulfonamides)] azithromycin [AZITHROMYCIN] AdvReac Severe RASH Verified 08/29/22 12:26 ziprasidone [From Geodon] AdvReac Intermediate dysuria, Verified 08/29/22 12:26 rash Review of Systems Constitutional: Constitutional: Reports no additional constitutional complaints Cardiovascular: Cardiovascular: Reports no additional cardiovascular complaints Gastrointestinal: Gastrointestinal: Reports no additional gastrointestinal complaints Psychiatric: Psychiatric: Reports anxiety PMFSH Past Medical History Medical History Acetaminophen overdose Borderline personality disorder Bronchitis Depression Diabetes type 2, controlled Full body hives GERD (gastroesophageal reflux disease) History of attempted suicide History of non-suicidal self-harm Hyperlipidemia Hypomagnesemia Major depression MDD (major depressive disorder), recurrent episode, severe Mood disorder Overdose PTSD (post-traumatic stress disorder) Suicide attempt Suicide attempt by acetaminophen overdose Social History Social History Household Members: Other Household Members Other:: senior care Housing: Other Housing Other:: senior care Do you presently have visiting nurse or other home services: No Unable to assess alcohol history related to: Unknown Alcohol intake: never Patient Tobacco Use Status: Current everyday Tobacco user Tobacco use type: Cigarette Cigarette Packs Per Day: 1 Cigarettes Per Day: 16 Years Smoked: 20 Smoked in Last 30 Days: Yes e-Cigarette/Vaping Use: Never Used Use of substances other than those prescribed or required for medical reasons: No Substance Use Type: Marijuana Advance Directives: No Advance Directives Information Provided: Yes service: No Current occupational status: unemployed and disabled Sexual orientation: Don't Know Physical Exam Vital Signs: Vital Signs: Last Vital Signs Temp 97.6 F 09/26/22 15:40 Pulse 120 H 09/26/22 15:40 Resp 20 09/26/22 15:40 BP 118/79 09/26/22 15:40 Pulse Ox 98 09/26/22 15:40 O2 Del Method 09/26/22 15:40 BMI result Body Mass Index 35.9 Const: General: cooperative Nutritional Appearance: average body habitus Orientation/consciousness: patient oriented x3 Limitations: no limitations HEENT: Head: Yes normal to inspection General nose exam: Normal external nose present Face and sinus: Yes normal facial exam Mouth: Normal oral and palatal mucosa present Neck: Neck: Yes normal visual inspection Resp: Effort & Inspection: normal respiratory effort Auscultation: clear to auscultation bilaterally Cardio: Jugular venous distension: no JVD Rate: regular rate Rhythm: regular rhythm GI: Inspection: Yes normal to inspection Palpation (GI): Soft to palpation, not firm, nontender and no guarding Auscultation: normal bowel sounds : General: Yes no CVA tenderness Back/Spine/Pelvis: Back: no CVA tenderness Skin: General skin exam: no rashes or lesions noted Lesions: no lesions Rashes: no rashes Neuro: General: patient oriented x3 Course Reevaluation(s) Reevaluation #1: signed out to Dr Martinez Time: 16:23 Medical Decision Making Lab Data Labs: Lab Results 09/26/22 Range/Units 15:56 Urine Color Yellow Urine Appearance Clear Urine pH 6.5 (5.0-9.0) Ur Specific [place] <= 1.005 (1.005-1.025) Urine Protein Negative (Neg-Trace) mg/dL Urine Glucose (UA) Negative (Negative) mg/dL Urine Ketones Negative (Negative) mg/dL Urine Blood Negative (Negative) Urine Nitrite Negative (Negative) Ur Leukocyte Esterase Negative (Negative) Discharge Plan Discharge Clinical Impression: Borderline personality disorder Patient Disposition: Still a Patient Prescriptions: No Action metformin 500 mg tablet 1 tab PO BID atorvastatin 10 mg tablet 10 mg PO DAILY montelukast 10 mg tablet 1 tab PO BEDTIME chlorpromazine 25 mg tablet 3 tab PO DAILY@1700 nicotine (polacrilex) 4 mg gum 1 ea PO Q2H PRN (Reason: Smoking Cessation) lisinopril 5 mg tablet 1 tab PO DAILY fluoxetine 20 mg capsule 60 mg PO DAILY nitrofurantoin monohyd/m-cryst [Macrobid] 100 mg capsule 100 mg PO Q12H 7 Days Qty: 14 0RF Rx Instructions: must administer with a meal/food prazosin 1 mg Capsule 4 mg PO BEDTIME 30 Days Qty: 120 0RF Protocol: Hold for SBP< HOLD for SBP < : 90 fluphenazine HCl 5 mg tablet 1 tab PO BEDTIME sennosides [senna] 8.6 mg Tablet 8.6 mg PO BEDTIME PRN (Reason: Constipation) trazodone 150 mg tablet 1 tab PO BEDTIME Interventions: [place]-Suicide Risk Severity Scale Last Done: 09/26/22 15:44
[2022-09-26 16:08] LABS: Appearance Urine Clear; Color Urine Yellow; Glucose Urine UA Negative (Negative); Leukocyte Esterase Urine Negative (Negative); Nitrite Urine Negative (Negative); PH 6.5 (5.0-9.0); Specific Gravity - Urine <= 1.005 (1.005-1.025); Urine Blood Negative (Negative); Urine Ketones Negative (Negative); Urine Protein Negative (Neg-Trace)
[2022-09-26 16:46] LABS: Influenza A PCR NEGATIVE (Negative); Influenza B PCR NEGATIVE (Negative); Resp Syncy Virus RNA Qual PCR NEGATIVE (Negative); SARS COV2 PCR INHOUSE NEGATIVE (Negative)
[2022-09-26 19:07] LABS: UPreg QC Valid YES; Urine Pregnancy NEGATIVE (NEGATIVE)
== END 2022-09-26 17:49 | disposition home or self-care (01) ==
PROVIDERS: Emergency Provider Emergency Medicine
DX: F60.3 Borderline personality disorder (principal); R42 Dizziness and giddiness; R33.9 Retention of urine, unspecified; Z79.899 Other long term (current) drug therapy; Z20.822 Contact with and (suspected) exposure to COVID-19; F17.210 Nicotine dependence, cigarettes, uncomplicated; Z71.6 Tobacco abuse counseling
CPT/HCPCS: 0241U; 81003; 81025; 99284

== ENCOUNTER 2022-09-27 20:49 | Emergency (ER) | payer MEDICARE, MEDICAID, SELFPAY ==
[2022-09-27 20:55] VITALS: BP 144/103; PULSE 119; RESP 18; TEMP 37.2; O2SAT 96; BMI 40.3
--- NOTE | 2022-09-27 21:08 | ED.PSYCH ---
HPI - Psych General Chief Complaint: Psychiatric Symptoms Stated Complaint: Hallucinations Time Seen by Provider: 09/27/22 21:04 Source: patient Mode of arrival: EMS Limitations: altered mental status History of Present Illness HPI Narrative: Patient with borderline personality disorder, bipolar disorder, depression suicidal attempts in the past with was seen here yesterday and discharged comes back as having very bad thoughts hearing voices to kill herself or jump from the bridge does not feel safe to be at home Related Data Home Medications Medication Instructions Recorded Confirmed atorvastatin 10 mg tablet 10 mg PO DAILY 05/29/21 09/27/22 metformin 500 mg tablet 1 tab PO BID 05/29/21 09/27/22 montelukast 10 mg tablet 1 tab PO BEDTIME 05/29/21 09/27/22 fluphenazine HCl 5 mg tablet 1 tab PO BEDTIME 03/19/22 09/27/22 chlorpromazine 25 mg tablet 3 tab PO DAILY@1700 06/17/22 09/27/22 fluoxetine 20 mg capsule 60 mg PO DAILY 07/30/22 09/27/22 lisinopril 5 mg tablet 1 tab PO DAILY 07/30/22 09/27/22 nicotine (polacrilex) 4 mg gum 1 ea PO Q2H PRN Smoking Cessation 07/30/22 09/27/22 sennosides 8.6 mg tablet (senna) 8.6 mg PO BEDTIME PRN Constipation 09/11/22 09/27/22 trazodone 150 mg tablet 1 tab PO BEDTIME 09/23/22 09/27/22 Previous Rx's Medication Instructions Recorded prazosin 1 mg capsule 4 mg PO BEDTIME 30 days #120 caps 10/18/21 Allergies Allergy/AdvReac Type Severity Reaction Status Date / Time Fish Containing Products Allergy Severe ANAPHYLAXIS Verified 08/29/22 12:26 codeine [Codeine] Allergy Intermediate RASH Verified 08/29/22 12:26 Penicillins Allergy Intermediate RASH Verified 08/29/22 12:26 prednisone [Prednisone] Allergy Intermediate RASH Verified 08/29/22 12:26 Sulfa (Sulfonamide Allergy Intermediate RASH Verified 08/29/22 12:26 Antibiotics) [Sulfa (Sulfonamides)] azithromycin [AZITHROMYCIN] AdvReac Severe RASH Verified 08/29/22 12:26 ziprasidone [From Geodon] AdvReac Intermediate dysuria, Verified 08/29/22 12:26 rash Review of Systems Review of Systems: Yes all other systems are reviewed and are negative [facility] Past Medical History Medical History Acetaminophen overdose Borderline personality disorder Bronchitis Depression Diabetes type 2, controlled Full body hives GERD (gastroesophageal reflux disease) History of attempted suicide History of non-suicidal self-harm Hyperlipidemia Hypomagnesemia Major depression MDD (major depressive disorder), recurrent episode, severe Mood disorder Overdose PTSD (post-traumatic stress disorder) Suicide attempt Suicide attempt by acetaminophen overdose Social History Social History Household Members: Other Household Members Other:: long-term Housing: Other Housing Other:: long-term Do you presently have visiting nurse or other home services: No Unable to assess alcohol history related to: Unknown Alcohol intake: never Patient Tobacco Use Status: Current everyday Tobacco user Tobacco use type: Cigarette Cigarette Packs Per Day: 1 Cigarettes Per Day: 16 Years Smoked: 20 e-Cigarette/Vaping Use: Never Used Substance Use Type: Marijuana Advance Directives: No Advance Directives Information Provided: No Healthcare Proxy: No Guardian: No service: No Current occupational status: unemployed and disabled Sexual orientation: Don't Know Physical Exam Vital Signs: Vital Signs: Last Vital Signs Temp 98.9 F 09/27/22 20:55 Pulse 119 H 09/27/22 20:55 Resp 18 09/27/22 20:55 BP 144/103 H 09/27/22 20:55 Pulse Ox 96 09/27/22 20:55 O2 Del Method 09/27/22 20:55 BMI result Body Mass Index 40.3 Appearance: Alert. Oriented X3. No acute distress. Eyes: PERRLA, No Nystagmus ENT: Pharynx normal. Oral Mucosa moist Neck: Normal inspection. Neck supple. CVS: Normal heart rate and rhythm. Pulses normal. Respiratory: No respiratory distress. Equal air entry bilateral, no wheezing/rales/rhonchi Abdomen: Soft and nontender. Bowel sounds are present, no mass palpable, no CVA tenderness Skin: Skin warm and dry. Normal skin color. Normal skin turgor. Extremities: No lower extremity edema. No calf tenderness psych: Anxious feel depressed auditory hallucinations+ Neuro: Oriented X 3. No motor deficit. No sensory deficit.No cerebellar signs , cranial nerves II-XII intact Medications Administered Generic Name Dose Route Start Last Admin Trade Name Freq PRN Reason Stop Dose Admin Chlorpromazine HCl 75 mg 09/27/22 21:15 09/27/22 21:34 Chlorpromazine Hcl 25 Mg Tablet PO 75 mg DAILY@1700 YULY Administration Fluphenazine HCl 5 mg 09/27/22 21:15 09/27/22 21:34 Fluphenazine Hcl 5 Mg Tablet PO 5 mg BEDTIME YULY Administration Metformin HCl 500 mg 09/27/22 21:15 09/27/22 21:34 Metformin Hcl 500 Mg Tablet PO 500 mg BID YULY Administration Montelukast Sodium 10 mg 09/27/22 21:15 09/27/22 21:34 Montelukast Sodium 10 Mg Tablet PO 10 mg BEDTIME YULY Administration Prazosin HCl 4 mg 09/27/22 21:15 09/27/22 21:34 Prazosin Hcl 1 Mg Capsule PO 4 mg BEDTIME YULY Administration Protocol Trazodone HCl 150 mg 09/27/22 21:15 09/27/22 21:34 Trazodone Hcl 50 Mg Tablet PO 150 mg BEDTIME YULY Administration Medical Decision Making Medical Decision Making [facility] Narrative: Patient with frequent ED visits with history of PTSD and borderline personality with suicidal feeling will get crisis evaluation again Lab Data [facility] Lab Attestation statement: I reviewed the patient's lab results. Labs: Lab Results 09/27/22 Range/Units 21:04 COVID-19 (NICK) Negative (Negative) COVID-19 Clin Com See Note Discharge Plan Discharge Clinical Impression: Bipolar disorder, Suicidal ideation Patient Disposition: Still a Patient Prescriptions: No Action metformin 500 mg tablet 1 tab PO BID atorvastatin 10 mg tablet 10 mg PO DAILY montelukast 10 mg tablet 1 tab PO BEDTIME chlorpromazine 25 mg tablet 3 tab PO DAILY@1700 nicotine (polacrilex) 4 mg gum 1 ea PO Q2H PRN (Reason: Smoking Cessation) lisinopril 5 mg tablet 1 tab PO DAILY fluoxetine 20 mg capsule 60 mg PO DAILY prazosin 1 mg Capsule 4 mg PO BEDTIME 30 Days Qty: 120 0RF Protocol: Hold for SBP< HOLD for SBP < : 90 fluphenazine HCl 5 mg tablet 1 tab PO BEDTIME sennosides [senna] 8.6 mg Tablet 8.6 mg PO BEDTIME PRN (Reason: Constipation) trazodone 150 mg tablet 1 tab PO BEDTIME Interventions: [place]-Suicide Risk Severity Scale Last Done: 09/27/22 20:57
[2022-09-27 21:28] LABS: COVID-19 Test Negative (Negative)
[2022-09-27] MEDS: Montelukast Sodium 10 MG TABLET PO (21:34)
[2022-09-27] MEDS: metFORMIN HCl 500 MG TABLET PO (21:34)
[2022-09-27] MEDS: traZODone HCL 50 MG TABLET 150 MG PO (21:34)
[2022-09-27] MEDS: chlorproMAZINE HCl 25 MG TABLET 75 MG PO (21:34)
[2022-09-27] MEDS: Prazosin HCL 1 MG CAPSULE 4 MG PO (21:34)
[2022-09-27] MEDS: fluPHENAZine HCl 5 MG TABLET PO (21:34)
--- NOTE | 2022-09-28 05:59 | PC.NURSE ---
Patient slept through the night, no distress observed/reported, behavior non concerning but patient exhibit attention seeking behavior, medication compliant, [facility] referral completed/pending ETa, VSS, will continue to monitor.
[2022-09-28] MEDS: lisinopriL 5 MG TABLET PO (09:03)
[2022-09-28] MEDS: metFORMIN HCl 500 MG TABLET PO (09:03)
[2022-09-28] MEDS: FLUoxetine HCl 20 MG CAPSULE 60 MG PO (09:03)
[2022-09-28] MEDS: Atorvastatin Calcium 10 MG TABLET PO (09:03)
[2022-09-28 09:17] VITALS: RESP 16
[2022-09-28 10:08] LABS: Appearance Urine Clear; Color Urine Yellow; Glucose Urine UA Negative (Negative); Leukocyte Esterase Urine Negative (Negative); Nitrite Urine Negative (Negative); Urine Blood Negative (Negative); Urine Ketones Negative (Negative); Urine Protein Negative (Neg-Trace)
[2022-09-28 10:15] LABS: Amphetamine Screen Urine Not Detected (Not Detect); Barbiturates, Urine Not Detected (Not Detect); Benzodiazepines Screen Urine Not Detected (Not Detect); Cannabinoid Screen Urine Not Detected (Not Detect); Cocaine Screen Urine Not Detected (Not Detect); Fentanyl, urine POSITIVE (Not Detect); Opiate Screen Urine Not Detected (Not Detect); Phencyclidine Screen Urine Not Detected (Not Detect)
== END 2022-09-28 11:57 | disposition home or self-care (01) ==
PROVIDERS: Emergency Provider Internal Medicine; PCP Nurse Practitioner Family
DX: R45.851 Suicidal ideations (principal); F31.81 Bipolar II disorder; Z20.822 Contact with and (suspected) exposure to COVID-19; F41.9 Anxiety disorder, unspecified; F60.3 Borderline personality disorder; F43.10 Post-traumatic stress disorder, unspecified; E11.9 Type 2 diabetes mellitus without complications; E78.5 Hyperlipidemia, unspecified; F12.90 Cannabis use, unspecified, uncomplicated; F17.210 Nicotine dependence, cigarettes, uncomplicated; Z91.52 Personal history of nonsuicidal self-harm; Z79.02 Long term (current) use of antithrombotics/antiplatelets; Z79.84 Long term (current) use of oral hypoglycemic drugs; Z79.899 Other long term (current) drug therapy
CPT/HCPCS: 80307; 81003; 87635; 99284; 99285

== ENCOUNTER 2022-09-29 13:16 | Emergency (ER) | payer MEDICARE, MEDICAID, SELFPAY ==
[2022-09-29 13:35] VITALS: BP 128/92; PULSE 97; RESP 18; TEMP 36.3; O2SAT 97; BMI 54.8
[2022-09-29 13:59] LABS: Appearance Urine Clear; Color Urine Yellow; Glucose Urine UA Negative (Negative); Leukocyte Esterase Urine Negative (Negative); Nitrite Urine Negative (Negative); Specific Gravity - Urine <= 1.005 (1.005-1.025); UPreg QC Valid YES; Urine Blood Negative (Negative); Urine Ketones Negative (Negative); Urine Pregnancy NEGATIVE (NEGATIVE); Urine Protein Negative (Neg-Trace)
--- NOTE | 2022-09-29 14:10 | ED_ITS ---
HPI - Psych General Chief Complaint: Psychiatric Symptoms Stated Complaint: Crisis Time Seen by Provider: 09/29/22 13:31 Source: patient Mode of arrival: ambulatory Limitations: no limitations History of Present Illness HPI Narrative: 46 year old female well known to the ED states she is hearing voices that are telling her to hurt herself injuries to both arms worse on the left than the right. She denies cough fever nausea vomiting or diarrhea. Tetanus is up to date. She does admit to not having her verapamil for some time. MD complaint: other Related Data Home Medications Medication Instructions Recorded Confirmed atorvastatin 10 mg tablet 10 mg PO DAILY 05/29/21 09/29/22 metformin 500 mg tablet 1 tab PO BID 05/29/21 09/29/22 montelukast 10 mg tablet 1 tab PO BEDTIME 05/29/21 09/29/22 fluphenazine HCl 5 mg tablet 1 tab PO BEDTIME 03/19/22 09/29/22 chlorpromazine 25 mg tablet 3 tab PO DAILY@1700 06/17/22 09/29/22 fluoxetine 20 mg capsule 60 mg PO DAILY 07/30/22 09/29/22 lisinopril 5 mg tablet 1 tab PO DAILY 07/30/22 09/29/22 nicotine (polacrilex) 4 mg gum 1 ea PO Q2H PRN Smoking Cessation 07/30/22 09/29/22 sennosides 8.6 mg tablet (senna) 8.6 mg PO BEDTIME PRN Constipation 09/11/22 09/29/22 trazodone 150 mg tablet 1 tab PO BEDTIME 09/23/22 09/29/22 Previous Rx's Medication Instructions Recorded prazosin 1 mg capsule 4 mg PO BEDTIME 30 days #120 caps 10/18/21 Allergies Allergy/AdvReac Type Severity Reaction Status Date / Time Fish Containing Products Allergy Severe ANAPHYLAXIS Verified 08/29/22 12:26 codeine [Codeine] Allergy Intermediate RASH Verified 08/29/22 12:26 Penicillins Allergy Intermediate RASH Verified 08/29/22 12:26 prednisone [Prednisone] Allergy Intermediate RASH Verified 08/29/22 12:26 Sulfa (Sulfonamide Allergy Intermediate RASH Verified 08/29/22 12:26 Antibiotics) [Sulfa (Sulfonamides)] azithromycin [AZITHROMYCIN] AdvReac Severe RASH Verified 08/29/22 12:26 ziprasidone [From Geodon] AdvReac Intermediate dysuria, Verified 08/29/22 12:26 rash Review of Systems Review of Systems: Review of systems: General: Patient denies any fever chills recent illness or falls Musculoskeletal: Denies back pain or body aches or other injuries HEENT: denies headache, runny nose, ear pain Respiratory: denies shortness of breath, cough Cardiovascular: no chest pain or palpitations : denies dysuria, frequency Abdomen: no nausea vomiting denies abdominal pain Extremities: no swelling, no pain Skin: no diaphoresis Yes all other systems are reviewed and are negative [facility] Past Medical History Attestation statement: The following information was validated with the patient. Medical History Acetaminophen overdose Borderline personality disorder Bronchitis Depression Diabetes type 2, controlled Full body hives GERD (gastroesophageal reflux disease) History of attempted suicide History of non-suicidal self-harm Hyperlipidemia Hypomagnesemia Major depression MDD (major depressive disorder), recurrent episode, severe Mood disorder Overdose PTSD (post-traumatic stress disorder) Suicide attempt Suicide attempt by acetaminophen overdose Social History Social History Household Members: Other Household Members Other:: care home Housing: Other Housing Other:: care home Do you presently have visiting nurse or other home services: No Unable to assess alcohol history related to: Unknown Alcohol intake: unknown Patient Tobacco Use Status: Current everyday Tobacco user Tobacco use type: Cigarette Cigarette Packs Per Day: 1 Cigarettes Per Day: 16 Years Smoked: 20 Smoked in Last 30 Days: No e-Cigarette/Vaping Use: Never Used Use of substances other than those prescribed or required for medical reasons: No Substance Use Type: Marijuana Any prior treatment program specific to substance use: No Advance Directives: No Advance Directives Information Provided: Yes Patient : No service: No Current occupational status: unemployed and disabled Sexual orientation: Don't Know Physical Exam Vital Signs: Vital Signs: Last Vital Signs Temp 97.4 F 09/29/22 13:35 Pulse 97 09/29/22 13:35 Resp 18 09/29/22 13:35 BP 128/92 H 09/29/22 13:35 Pulse Ox 97 09/29/22 13:35 O2 Del Method 09/29/22 13:35 BMI result Body Mass Index 54.8 General: Well-appearing well-nourished in no signs of distress HEENT: Normocephalic atraumatic Neck: No signs of JVD, no masses no tenderness or lymphadenopathy Cardiovascular: Regular rate and rhythm Respiratory: Clear to auscultation bilaterally Abdomen: Soft nontender no masses Extremities: Normal pedal pulses no signs of edema Skin: Dry warm no rashes Back: No tenderness full ROM Medical Decision Making Medical Decision Making [facility] Narrative: Patient with SI I will hold in the ED for psych evaluation typical labs sent. Tetanus is up to date. None of the cuts require suturing. Labs are all okay medically cleared still pending placement at this time Differential Diagnosis Differential Diagnoses: The differential diagnosis associated with the presentation includes Admission/Observation Consideration of admission/observation: Escalation of care including admission /observation considered Consult Healthcare Provider Management of the patient was discussed with: Behavioral Health Provider Lab Data Labs: Lab Results 09/29/22 09/29/22 09/29/22 Range/Units 13:50 13:50 13:50 Urine Color Yellow Urine Appearance Clear Urine pH 6.0 (5.0-9.0) Ur Specific [place] <= 1.005 (1.005-1.025) Urine Protein Negative (Neg-Trace) mg/dL Urine Glucose (UA) Negative (Negative) mg/dL Urine Ketones Negative (Negative) mg/dL Urine Blood Negative (Negative) Urine Nitrite Negative (Negative) Ur Leukocyte Esterase Negative (Negative) Urine Test NEGATIVE (NEGATIVE) Urine Opiates Screen (Not Detect) Urine Fentanyl Screen (Not Detect) Ur Barbiturates Screen (Not Detect) Ur Phencyclidine Scrn (Not Detect) Ur Amphetamines Screen (Not Detect) U Benzodiazepines Scrn (Not Detect) Urine Cocaine Screen (Not Detect) U Marijuana (THC) Screen (Not Detect) Influenza Type A (PCR) NEGATIVE (Negative) Influenza Type B (PCR) NEGATIVE (Negative) RSV RNA Qual (PCR) NEGATIVE (Negative) SARS-CoV-2 RNA (RT-PCR) NEGATIVE (Negative) 09/29/22 Range/Units 13:50 Urine Color Urine Appearance Urine pH (5.0-9.0) Ur Specific [place] (1.005-1.025) Urine Protein (Neg-Trace) mg/dL Urine Glucose (UA) (Negative) mg/dL Urine Ketones (Negative) mg/dL Urine Blood (Negative) Urine Nitrite (Negative) Ur Leukocyte Esterase (Negative) Urine Test (NEGATIVE) Urine Opiates Screen Not Detected (Not Detect) Urine Fentanyl Screen Not Detected (Not Detect) Ur Barbiturates Screen Not Detected (Not Detect) Ur Phencyclidine Scrn Not Detected (Not Detect) Ur Amphetamines Screen Not Detected (Not Detect) U Benzodiazepines Scrn Not Detected (Not Detect) Urine Cocaine Screen Not Detected (Not Detect) U Marijuana (THC) Screen Not Detected (Not Detect) Influenza Type A (PCR) (Negative) Influenza Type B (PCR) (Negative) RSV RNA Qual (PCR) (Negative) SARS-CoV-2 RNA (RT-PCR) (Negative) Discharge Plan Discharge Clinical Impression: Acute psychosis, Suicidal ideation Patient Disposition: Still a Patient Prescriptions: No Action metformin 500 mg tablet 1 tab PO BID atorvastatin 10 mg tablet 10 mg PO DAILY montelukast 10 mg tablet 1 tab PO BEDTIME chlorpromazine 25 mg tablet 3 tab PO DAILY@1700 nicotine (polacrilex) 4 mg gum 1 ea PO Q2H PRN (Reason: Smoking Cessation) lisinopril 5 mg tablet 1 tab PO DAILY fluoxetine 20 mg capsule 60 mg PO DAILY prazosin 1 mg Capsule 4 mg PO BEDTIME 30 Days Qty: 120 0RF Protocol: Hold for SBP< HOLD for SBP < : 90 fluphenazine HCl 5 mg tablet 1 tab PO BEDTIME sennosides [senna] 8.6 mg Tablet 8.6 mg PO BEDTIME PRN (Reason: Constipation) trazodone 150 mg tablet 1 tab PO BEDTIME Interventions: [place]-Suicide Risk Severity Scale Last Done: 09/29/22 13:39
[2022-09-29 14:33] LABS: Influenza A PCR NEGATIVE (Negative); Influenza B PCR NEGATIVE (Negative); Resp Syncy Virus RNA Qual PCR NEGATIVE (Negative); SARS COV2 PCR INHOUSE NEGATIVE (Negative)
[2022-09-29 14:34] LABS: Amphetamine Screen Urine Not Detected (Not Detect); Barbiturates, Urine Not Detected (Not Detect); Benzodiazepines Screen Urine Not Detected (Not Detect); Cannabinoid Screen Urine Not Detected (Not Detect); Cocaine Screen Urine Not Detected (Not Detect); Fentanyl, urine Not Detected (Not Detect); Opiate Screen Urine Not Detected (Not Detect); Phencyclidine Screen Urine Not Detected (Not Detect)
== END 2022-09-29 17:25 | disposition home or self-care (01) ==
PROVIDERS: Emergency Provider Student in an Organized Health Care Education/Training Program; PCP Nurse Practitioner Family
DX: F23 Brief psychotic disorder (principal); R45.851 Suicidal ideations; Z20.822 Contact with and (suspected) exposure to COVID-19; F32.A Depression, unspecified; F60.3 Borderline personality disorder; E11.9 Type 2 diabetes mellitus without complications; E78.5 Hyperlipidemia, unspecified; Z91.51 Personal history of suicidal behavior; Z91.52 Personal history of nonsuicidal self-harm; F43.10 Post-traumatic stress disorder, unspecified; F17.210 Nicotine dependence, cigarettes, uncomplicated; F12.90 Cannabis use, unspecified, uncomplicated; E66.9 Obesity, unspecified; Z68.43 Body mass index [BMI] 50.0-59.9, adult; Z79.84 Long term (current) use of oral hypoglycemic drugs; Z79.899 Other long term (current) drug therapy; Z79.02 Long term (current) use of antithrombotics/antiplatelets
CPT/HCPCS: 0241U; 80307; 81003; 81025; 99284

== ENCOUNTER 2022-10-03 13:52 | Emergency (ER) | payer MEDICARE, MEDICAID, SELFPAY ==
[2022-10-03 14:01] VITALS: BP 131/85; BP 158/98; PULSE 103; PULSE 87; RESP 16; TEMP 36.8; O2SAT 98; O2SAT 99; BMI 29.9
--- NOTE | 2022-10-03 14:11 | ED.PSYCH ---
HPI - Psych General Chief Complaint: Psychiatric Symptoms Stated Complaint: SI,AUDITORY/VISUAL HALLUCINATION,-SEC 12 Time Seen by Provider: 10/03/22 14:05 Source: patient Mode of arrival: EMS Limitations: no limitations History of Present Illness HPI Narrative: Patient comes in the emergency room from her [facility], complaining of suicidal ideation and auditory hallucination. Patient is well-known to the Behavioral Health/care team. Patient states that she cut herself yesterday in the right upper extremity, superficial. Patient has no other complaints. Related Data Home Medications Medication Instructions Recorded Confirmed atorvastatin 10 mg tablet 10 mg PO DAILY 05/29/21 09/29/22 metformin 500 mg tablet 1 tab PO BID 05/29/21 09/29/22 montelukast 10 mg tablet 1 tab PO BEDTIME 05/29/21 09/29/22 fluphenazine HCl 5 mg tablet 1 tab PO BEDTIME 03/19/22 09/29/22 chlorpromazine 25 mg tablet 3 tab PO DAILY@1700 06/17/22 09/29/22 fluoxetine 20 mg capsule 60 mg PO DAILY 07/30/22 09/29/22 lisinopril 5 mg tablet 1 tab PO DAILY 07/30/22 09/29/22 nicotine (polacrilex) 4 mg gum 1 ea PO Q2H PRN Smoking Cessation 07/30/22 09/29/22 sennosides 8.6 mg tablet (senna) 8.6 mg PO BEDTIME PRN Constipation 09/11/22 09/29/22 trazodone 150 mg tablet 1 tab PO BEDTIME 09/23/22 09/29/22 Previous Rx's Medication Instructions Recorded prazosin 1 mg capsule 4 mg PO BEDTIME 30 days #120 caps 10/18/21 Allergies Allergy/AdvReac Type Severity Reaction Status Date / Time Fish Containing Products Allergy Severe ANAPHYLAXIS Verified 08/29/22 12:26 codeine [Codeine] Allergy Intermediate RASH Verified 08/29/22 12:26 Penicillins Allergy Intermediate RASH Verified 08/29/22 12:26 prednisone [Prednisone] Allergy Intermediate RASH Verified 08/29/22 12:26 Sulfa (Sulfonamide Allergy Intermediate RASH Verified 08/29/22 12:26 Antibiotics) [Sulfa (Sulfonamides)] azithromycin [AZITHROMYCIN] AdvReac Severe RASH Verified 08/29/22 12:26 ziprasidone [From Geodon] AdvReac Intermediate dysuria, Verified 08/29/22 12:26 rash Review of Systems Review of Systems: Constitutional : No Weight loss, No Fever, No Chills, No Night Sweats, No Fatigue, No Malaise ENT/Mouth : No Hearing loss, No Ear Pain, No Nasal Congestion, No Sinus Pain, No Hoarseness, No sore throat, No Rhinorrhea, No Swallowing Difficulty Eyes: No Eye Pain, No Swelling, No Redness, No Foreign Body, No Discharge, No Vision Changes Cardiovascular : No Chest Pain, No SOB, No Dyspnea on Exertion, No Orthopnea, No Edema, No Palpitations Respiratory : No Cough, No Sputum, No Wheezing, No Smoke Exposure, No Dyspnea Gastrointestinal : No Nausea, No Vomiting, No Diarrhea, No Constipation, No abdominal Pain, No Hematochezia, No Melena Genitourinary : no irregular bleeding, No Dysuria, No Urinary Frequency, No Hematuria, No Urinary Incontinence, No Urgency, No Flank Pain, No Urinary Flow Changes, No Hesitancy Musculoskeletal : No joint pain, No Myalgias, No Joint Swelling Skin : Complaining of a superficial abrasion to the right upper arm has self-inflicted Neuro : No Weakness, No Numbness, No Paresthesias, No Loss of Consciousness, No Dizziness, No Headache Psych : Complaining of anxiety, suicidal ideation and auditory hallucinations Heme/Lymph: No Bruising, No Bleeding,No Lymphadenopathy Endocrine : No Polyuria, No Polydipsia, No Temperature Intolerance PMFSH Past Medical History Medical History Acetaminophen overdose Borderline personality disorder Bronchitis Depression Diabetes type 2, controlled Full body hives GERD (gastroesophageal reflux disease) History of attempted suicide History of non-suicidal self-harm Hyperlipidemia Hypomagnesemia Major depression MDD (major depressive disorder), recurrent episode, severe Mood disorder Overdose PTSD (post-traumatic stress disorder) Suicide attempt Suicide attempt by acetaminophen overdose Social History Social History Household Members: Other Household Members Other:: [facility] Housing: Other Housing Other:: [facility] Do you presently have visiting nurse or other home services: No Unable to assess alcohol history related to: Unknown Alcohol intake: unknown Patient Tobacco Use Status: Current everyday Tobacco user Tobacco use type: Cigarette Cigarette Packs Per Day: 1 Cigarettes Per Day: 16 Years Smoked: 20 e-Cigarette/Vaping Use: Never Used Substance Use Type: Marijuana Advance Directives: No Advance Directives Information Provided: Yes service: No Current occupational status: unemployed and disabled Sexual orientation: Don't Know Physical Exam Vital Signs: Vital Signs: Last Vital Signs Temp 98.3 F 10/03/22 14:01 Pulse 103 H 10/03/22 14:01 Resp 16 10/03/22 14:01 BP 131/85 10/03/22 14:01 Pulse Ox 98 10/03/22 14:01 O2 Del Method 10/03/22 14:01 BMI result Body Mass Index 29.9 Const: Other: Appearance: Alert. Oriented X3. No acute distress. Eyes: Pupils equal, round and reactive to light. ENT: Pharynx normal. Neck: Normal inspection. Neck supple. No lymph nodes noted. No crepitus CVS: Normal heart rate and rhythm. Pulses normal. Normal S1 and S2 Respiratory: No respiratory distress. Breath sounds normal. No Wheezing. No rales Abdomen: Soft and nontender. No rigidity. No distention. Skin: Skin warm and dry. Normal skin color. Normal skin turgor. Small superficial abrasion to the right upper extremity, no bleeding Extremities: No lower extremity edema. No Lacerations. No Rash Neuro: Oriented X 3. No motor deficit. No sensory deficit. Moving all extremities. No slurred speech. CN 2 through 12 grossly intact Psych: calm, cooperative, normal affect Course Course Course Narrative: Care team consult pending. Physician observation started at 14:15 16:10 p.m. care team evaluated the patient. Patient is no longer suicidal or homicidal. Patient received 1 dose of Ativan 0.5 mg, patient feeling well to return to her [facility] her [facility] Medications Administered Discontinued Medications Generic Name Dose Route Start Last Admin Trade Name Freq PRN Reason Stop Dose Admin Lorazepam 0.5 mg 10/03/22 14:32 10/03/22 14:36 Lorazepam 0.5 Mg Tablet PO 10/03/22 14:33 0.5 mg NOW STA Administration Medical Decision Making Lab Data Labs: Lab Results 10/03/22 10/03/22 Range/Units 14:38 14:38 Urine Opiates Screen Not Detected (Not Detect) Urine Fentanyl Screen POSITIVE H (Not Detect) Ur Barbiturates Screen Not Detected (Not Detect) Ur Phencyclidine Scrn Not Detected (Not Detect) Ur Amphetamines Screen Not Detected (Not Detect) U Benzodiazepines Scrn Not Detected (Not Detect) Urine Cocaine Screen Not Detected (Not Detect) U Marijuana (THC) Screen Not Detected (Not Detect) COVID-19 (NICK) Negative (Negative) COVID-19 Clin Com See Note Discharge Plan Discharge Clinical Impression: Bipolar disorder Patient Disposition: Home, Self-Care Instructions: Bipolar Disorder (ED), Anxiety (ED) Additional Instructions: Please follow-up with your primary care physician tomorrow. If you have any worsening or new symptoms, please return to the emergency room or call 911 Prescriptions: No Action metformin 500 mg tablet 1 tab PO BID atorvastatin 10 mg tablet 10 mg PO DAILY montelukast 10 mg tablet 1 tab PO BEDTIME chlorpromazine 25 mg tablet 3 tab PO DAILY@1700 nicotine (polacrilex) 4 mg gum 1 ea PO Q2H PRN (Reason: Smoking Cessation) lisinopril 5 mg tablet 1 tab PO DAILY fluoxetine 20 mg capsule 60 mg PO DAILY prazosin 1 mg Capsule 4 mg PO BEDTIME 30 Days Qty: 120 0RF Protocol: Hold for SBP< HOLD for SBP < : 90 fluphenazine HCl 5 mg tablet 1 tab PO BEDTIME sennosides [senna] 8.6 mg Tablet 8.6 mg PO BEDTIME PRN (Reason: Constipation) trazodone 150 mg tablet 1 tab PO BEDTIME
[2022-10-03] MEDS: LORazepam 0.5 MG TABLET PO (14:36)
[2022-10-03 15:04] LABS: Amphetamine Screen Urine Not Detected (Not Detect); Barbiturates, Urine Not Detected (Not Detect); Benzodiazepines Screen Urine Not Detected (Not Detect); Cannabinoid Screen Urine Not Detected (Not Detect); Cocaine Screen Urine Not Detected (Not Detect); Fentanyl, urine POSITIVE (Not Detect); Opiate Screen Urine Not Detected (Not Detect); Phencyclidine Screen Urine Not Detected (Not Detect)
[2022-10-03 15:06] LABS: COVID-19 Test Negative (Negative); IDNOW Serial# 9DB6401D
== END 2022-10-03 16:24 | disposition home or self-care (01) ==
PROVIDERS: Emergency Provider Emergency Medicine
DX: F31.9 Bipolar disorder, unspecified (principal); R45.851 Suicidal ideations; R44.0 Auditory hallucinations; R44.1 Visual hallucinations; Z20.822 Contact with and (suspected) exposure to COVID-19; Z91.51 Personal history of suicidal behavior; Z91.52 Personal history of nonsuicidal self-harm; F43.10 Post-traumatic stress disorder, unspecified; F17.210 Nicotine dependence, cigarettes, uncomplicated; F12.90 Cannabis use, unspecified, uncomplicated; E66.9 Obesity, unspecified; Z68.43 Body mass index [BMI] 50.0-59.9, adult; Z79.84 Long term (current) use of oral hypoglycemic drugs; Z79.899 Other long term (current) drug therapy; Z79.02 Long term (current) use of antithrombotics/antiplatelets
CPT/HCPCS: 80307; 87635; 99283

== ENCOUNTER 2022-10-03 19:48 | Emergency (ER) | payer MEDICARE, MEDICAID, SELFPAY ==
[2022-10-03 19:59] VITALS: BMI 41.6
[2022-10-03 20:09] VITALS: BP 125/98; PULSE 104; RESP 16; TEMP 36.6; O2SAT 96
[2022-10-03 20:10] VITALS: BMI 36.6
--- NOTE | 2022-10-03 20:49 | ED_ITS ---
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 Opiates Screen Not Detected (Not Detect) Urine Fentanyl Screen POSITIVE H (Not Detect) Acetaminophen < 1 Ur Barbiturates Screen Not Detected (Not Detect) Ur Phencyclidine Scrn Not Detected (Not Detect) Ur Amphetamines Screen Not Detected (Not Detect) U Benzodiazepines Scrn Not Detected (Not Detect) Urine Cocaine Screen Not Detected (Not Detect) U Marijuana (THC) Screen Not Detected (Not Detect) Ethyl Alcohol < 10 mg/dL COVID-19 (NICK) (Negative) COVID-19 Clin Com 10/04/22 Range/Units 08:03 WBC (4.8-10.8) X10*3/uL RBC (4.20-5.50) X10*6/uL Hgb (12.0-16.0) g/dl Hct (37.0-47.0) % MCV (80.0-98.0) fL MCH (27.0-33.0) pg MCHC (31.0-35.0) g/dl RDW (11.0-16.0) % Plt Count (160-400) X10*3/uL MPV (9.4-12.3) fL Immature Gran % (Auto) (0.0-0.4) % Neut % (Auto) (45-73) % Lymph % (Auto) (20-40) % [place] % (Auto) (2-11) % Eos % (Auto) (0-4) % Baso % (Auto) (0-2) % Lymph # (Auto) (1.2-4.9) X10*3/uL [place] # (Auto) (0.1-1.2) X10*3/uL Eos # (Auto) (0.0-0.4) X10*3/uL Baso # (Auto) (0.0-0.2) X10*3/uL Abs Immat Gran (auto) (0.00-0.03) X10*3/uL Absolute Neuts (auto) (2.0-8.3) x10*3/uL Absolute Nucleated RBC (0.0-0.012) X10*3/uL Nucleated RBC % (auto) (0.0-0.2) /100WBC Sodium (135-145) mmol/L Potassium (3.3-5.1) mmol/L Chloride (96-108) mmol/L Carbon Dioxide (22-29) mmol/L Anion Gap (12-20) BUN (9-16) mg/dL Creatinine (0.5-1.4) mg/dL Estim Creat Clear Calc Estimated GFR Random Glucose (60-115) mg/dL Calcium (8.4-10.2) mg/dL Total Bilirubin (0.0-1.0) mg/dL AST (5-31) U/L ALT (0-31) U/L Alkaline Phosphatase (39-117) U/L Total Protein (6.5-8.0) g/dL Albumin (3.5-5.0) g/dL Urine Color Urine Appearance Urine pH (5.0-9.0) Ur Specific [place] (1.005-1.025) Urine Protein (Neg-Trace) mg/dL Urine Glucose (UA) (Negative) mg/dL Urine Ketones (Negative) mg/dL Urine Blood (Negative) Urine Nitrite (Negative) Ur Leukocyte Esterase (Negative) Urine Test NEGATIVE (NEGATIVE) Salicylates (15-30) mg/dL Urine Opiates Screen (Not Detect) Urine Fentanyl Screen (Not Detect) Acetaminophen Ur Barbiturates Screen (Not Detect) Ur Phencyclidine Scrn (Not Detect) Ur Amphetamines Screen (Not Detect) U Benzodiazepines Scrn (Not Detect) Urine Cocaine Screen (Not Detect) U Marijuana (THC) Screen (Not Detect) Ethyl Alcohol mg/dL COVID-19 (NICK) (Negative) COVID-19 Clin Com <TIMI Lopez - Last Filed: 10/04/22 11:00> Critical Care Time Critical Care Time Critical Care Time: No <TIMI Cruz - Last Filed: 10/03/22 22:16> Discharge Plan Discharge Clinical Impression: Depression, Acute anxiety <TIMI Cruz Last Filed: 10/03/22 22:16> Patient Disposition: Home, Self-Care <TIMI Cruz - Last Filed: 10/03/22 22:16> Instructions: Depression (ED) <TIMI Cruz Last Filed: 10/03/22 22:16> Additional Instructions: Take all of your medications as prescribed Follow-up with crisis team, your psychiatrist and therapist. <TIMI Cruz - Last Filed: 10/03/22 22:16> Prescriptions: No Action metformin 500 mg tablet 1 tab PO BID atorvastatin 10 mg tablet 10 mg PO DAILY montelukast 10 mg tablet 1 tab PO BEDTIME chlorpromazine 25 mg tablet 3 tab PO DAILY@1700 nicotine (polacrilex) 4 mg gum 1 ea PO Q2H PRN (Reason: Smoking Cessation) lisinopril 5 mg tablet 1 tab PO DAILY fluoxetine 20 mg capsule 60 mg PO DAILY prazosin 1 mg Capsule 4 mg PO BEDTIME 30 Days Qty: 120 0RF Protocol: Hold for SBP< HOLD for SBP < : 90 fluphenazine HCl 5 mg tablet 1 tab PO BEDTIME sennosides [senna] 8.6 mg Tablet 8.6 mg PO BEDTIME PRN (Reason: Constipation) trazodone 150 mg tablet 1 tab PO BEDTIME <TIMI Cruz Last Filed: 10/03/22 22:16> Interventions: [place]-Suicide Risk Severity Scale Last Done: 10/04/22 05:21 <TIMI Cruz - Last Filed: 10/03/22 22:16>
[2022-10-03 20:51] LABS: COVID-19 Test Negative (Negative); IDNOW Serial# 16C4AD1C
--- NOTE | 2022-10-03 20:58 | MHC.CARE ---
CARE team evaluated pt this afternoon. Disposition was for discharge home to residential program. Transportation was coordinated with pt's half-way. This evening pt returns endorsing ongoing, intense auditory hallucinations and engaged in self harm via lacerations to her left forearm. This chart writer will check in with pt this evening and pt will be seen for a mental status update in the morning.
[2022-10-03 21:53] LABS: MANUAL DIFF FLAG NO
[2022-10-03 21:57] LABS: Basophils Percent Auto 0.4 % (0-2); Eosinophils Absolute Auto 0.3 X10*3/uL (0.0-0.4); Eosinophils Percent Auto 4.1 % (0-4); Hematocrit 33.8 % (37.0-47.0); Hemoglobin 10.6 g/dl (12.0-16.0); Imm Gran Abs Auto 0.02 X10*3/uL (0.00-0.03); Imm Gran Pct Auto 0.3 % (0.0-0.4); Lymphocytes Absolute Auto 1.7 X10*3/uL (1.2-4.9); Lymphocytes Percent Auto 25.4 % (20-40); Mean Corpuscular HGB Conc 31.4 g/dl (31.0-35.0); Mean Corpuscular Hemoglobin 26.6 pg (27.0-33.0); Mean Corpuscular Volume 84.7 fL (80.0-98.0); Mean Platelet Volume 9.8 fL (9.4-12.3); Monocytes Absolute Auto 0.6 X10*3/uL (0.1-1.2); Monocytes Percent Auto 8.5 % (2-11); Neutrophils Absolute Auto 4.2 x10*3/uL (2.0-8.3); Neutrophils Percent Auto 61.3 % (45-73); Platelet Count 257 X10*3/uL (160-400); Red Blood Count 3.99 X10*6/uL (4.20-5.50); Red Cell Distribution Width 14.6 % (11.0-16.0); White Blood Count 6.8 X10*3/uL (4.8-10.8)
[2022-10-03 22:11] LABS: Acetaminophen LAB < 1 mcg/mL (<30); Ethanol < 10 mg/dL; Salicylate < 5.0 mg/dL (15-30)
[2022-10-03 22:12] LABS: Alanine Aminotransferase 11 U/L (0-31); Albumin Level 4.5 g/dL (3.5-5.0); Alkaline Phosphatase 103 U/L (39-117); Anion Gap 12 (12-20); Aspartate Amino Transferase 13 U/L (5-31); Bilirubin Total 0.2 mg/dL (0.0-1.0); Blood Urea Nitrogen 10 mg/dL (9-16); Calcium 9.2 mg/dL (8.4-10.2); Carbon Dioxide 26 mmol/L (22-29); Chloride 106 mmol/L (96-108); Creatinine Clr Calc Pharmacy 110.5; Estimated Glomerular Filt Rate > 60; Glucose Random 92 mg/dL (60-115); Potassium 4.1 mmol/L (3.3-5.1); Salicylate < 5.0 mg/dL (15-30); Sodium 140 mmol/L (135-145); Total Protein 6.9 g/dL (6.5-8.0)
--- NOTE | 2022-10-04 05:22 | PC.NURSE ---
Patient slept through the night, no distress observed/reported, behavior non concerning and at base line, med rec completed/pending provider's approval, pending urine sample, VSS, awaiting to be seen by care team in the morning, will continue to monitor.
[2022-10-04 06:41] VITALS: BP 131/83; PULSE 73; RESP 16; TEMP 36.8; O2SAT 93
[2022-10-04 08:19] LABS: Appearance Urine Clear; Color Urine Yellow; Glucose Urine UA Negative (Negative); Leukocyte Esterase Urine Negative (Negative); Nitrite Urine Negative (Negative); PH 6.5 (5.0-9.0); UPreg QC Valid YES; Urine Blood Negative (Negative); Urine Ketones Negative (Negative); Urine Pregnancy NEGATIVE (NEGATIVE); Urine Protein Negative (Neg-Trace)
[2022-10-04 08:28] LABS: Amphetamine Screen Urine Not Detected (Not Detect); Barbiturates, Urine Not Detected (Not Detect); Benzodiazepines Screen Urine Not Detected (Not Detect); Cannabinoid Screen Urine Not Detected (Not Detect); Cocaine Screen Urine Not Detected (Not Detect); Fentanyl, urine POSITIVE (Not Detect); Opiate Screen Urine Not Detected (Not Detect); Phencyclidine Screen Urine Not Detected (Not Detect)
== END 2022-10-04 11:14 | disposition home or self-care (01) ==
PROVIDERS: Physician Assistant; Emergency Provider Emergency Medicine
DX: F32.A Depression, unspecified (principal); F41.9 Anxiety disorder, unspecified; R45.851 Suicidal ideations; R44.0 Auditory hallucinations; Z20.822 Contact with and (suspected) exposure to COVID-19; F60.3 Borderline personality disorder; F23 Brief psychotic disorder; F43.10 Post-traumatic stress disorder, unspecified; E11.9 Type 2 diabetes mellitus without complications; E78.5 Hyperlipidemia, unspecified; F17.210 Nicotine dependence, cigarettes, uncomplicated; F12.90 Cannabis use, unspecified, uncomplicated; E66.9 Obesity, unspecified; Z68.43 Body mass index [BMI] 50.0-59.9, adult; Z91.52 Personal history of nonsuicidal self-harm; Z91.51 Personal history of suicidal behavior; Z79.84 Long term (current) use of oral hypoglycemic drugs; Z79.899 Other long term (current) drug therapy; Z79.02 Long term (current) use of antithrombotics/antiplatelets
CPT/HCPCS: 36415; 80053; 80143; 80179; 80307; 81003; 81025; 82077; 85025; 87635; 99284

== ENCOUNTER 2022-10-15 16:51 | Emergency (ER) | payer MEDICARE, MEDICAID, SELFPAY ==
[2022-10-15 17:08] VITALS: BP 139/79; PULSE 103; RESP 18; TEMP 36.7; O2SAT 98; BMI 37.8
--- NOTE | 2022-10-15 17:17 | PC.NURSE ---
patient changed into hospital attire . security searched and patients belongs secured . patient currently on 1-1 observation . after reporting SI statements , reports hearing voices to self harm of slicing both wrists and throat . patient has two small superficial hewitt on left wrist . patient is aware of plan of care .
--- NOTE | 2022-10-15 17:19 | ED.PSYCH ---
HPI - Psych General Chief Complaint: Psychiatric Symptoms Stated Complaint: crisis Time Seen by Provider: 10/15/22 16:52 Source: patient and EMS Mode of arrival: EMS Limitations: no limitations History of Present Illness HPI Narrative: 46 yo female with history of borderline personality disorder, bipolar 2, anxiety, chronic auditory hallucinations with 3 current acetaminophen overdose is presents to the ER for evaluation of auditory hallucinations, voices telling her to go to the store to buy medications to overdose on. She denies actually overdosing on any medications today. She did not go to the store. She states she came to the ER called 911 instead. She states her right ankle has been hurting her and she sprain to the couple weeks ago when she fell. She states she was recently at [facility] and they sent her to [facility], an inpatient psychiatric hospital where they decreased a lot of her medications and her p.r.n. meds which is concerning to her. She states she not sleeping well MD complaint: suicidal ideation, feels depressed and hallucinations Onset (ago): day(s) Duration: changing over time History of same: Yes Relieving factors: none Exacerbating factors: none Associated psychiatric symptoms: depression and auditory hallucinations Associated symptoms: insomnia Treatments prior to arrival: none If self harm: admits thoughts of self harm and has plan Related Data Home Medications Medication Instructions Recorded Confirmed atorvastatin 10 mg tablet 10 mg PO DAILY 05/29/21 10/15/22 metformin 500 mg tablet 1 tab PO BID 05/29/21 10/15/22 montelukast 10 mg tablet 1 tab PO BEDTIME 05/29/21 10/15/22 fluphenazine HCl 5 mg tablet 1 tab PO BEDTIME 03/19/22 10/15/22 chlorpromazine 25 mg tablet 3 tab PO DAILY@1700 06/17/22 10/15/22 fluoxetine 20 mg capsule 60 mg PO DAILY 07/30/22 10/15/22 lisinopril 5 mg tablet 1 tab PO DAILY 07/30/22 10/15/22 nicotine (polacrilex) 4 mg gum 1 ea PO Q2H PRN Smoking Cessation 07/30/22 10/15/22 sennosides 8.6 mg tablet (senna) 8.6 mg PO BEDTIME PRN Constipation 09/11/22 10/15/22 trazodone 150 mg tablet 1 tab PO BEDTIME 09/23/22 10/15/22 Previous Rx's Medication Instructions Recorded prazosin 1 mg capsule 4 mg PO BEDTIME 30 days #120 caps 10/18/21 Allergies Allergy/AdvReac Type Severity Reaction Status Date / Time Fish Containing Products Allergy Severe ANAPHYLAXIS Verified 08/29/22 12:26 codeine [Codeine] Allergy Intermediate RASH Verified 08/29/22 12:26 Penicillins Allergy Intermediate RASH Verified 08/29/22 12:26 prednisone [Prednisone] Allergy Intermediate RASH Verified 08/29/22 12:26 Sulfa (Sulfonamide Allergy Intermediate RASH Verified 08/29/22 12:26 Antibiotics) [Sulfa (Sulfonamides)] azithromycin [AZITHROMYCIN] AdvReac Severe RASH Verified 08/29/22 12:26 ziprasidone [From Geodon] AdvReac Intermediate dysuria, Verified 08/29/22 12:26 rash Review of Systems Review of Systems: Yes all other systems are reviewed and are negative [facility] [place] Past Medical History Medical History Acetaminophen overdose Borderline personality disorder Bronchitis Depression Diabetes type 2, controlled Full body hives GERD (gastroesophageal reflux disease) History of attempted suicide History of non-suicidal self-harm Hyperlipidemia Hypomagnesemia Major depression MDD (major depressive disorder), recurrent episode, severe Mood disorder Overdose PTSD (post-traumatic stress disorder) Suicide attempt Suicide attempt by acetaminophen overdose Social History Social History Household Members: Other Household Members Other:: halfway Housing: Other Housing Other:: halfway Do you presently have visiting nurse or other home services: No Unable to assess alcohol history related to: Unknown Alcohol intake: former Patient Tobacco Use Status: Current everyday Tobacco user Tobacco use type: Cigarette Cigarette Packs Per Day: 1 Cigarettes Per Day: 16 Years Smoked: 20 Smoked in Last 30 Days: No e-Cigarette/Vaping Use: Never Used Substance Use Type: Marijuana Advance Directives: No Advance Directives Information Provided: No Guardian: No Patient : No service: No Current occupational status: unemployed and disabled Sexual orientation: Don't Know Physical Exam Vital Signs: Vital Signs: Last Vital Signs Temp 98.0 F 10/15/22 17:08 Pulse 103 H 10/15/22 17:08 Resp 16 10/15/22 17:38 BP 139/79 01/01/23 17:08 Pulse Ox 98 10/15/22 17:08 O2 Del Method 10/15/22 17:08 BMI result Body Mass Index 37.8 Appearance: Alert. Oriented X3. No acute distress. Eyes: Pupils equal, round and reactive to light. ENT: Pharynx normal. Neck: Normal inspection. Neck supple. CVS: Normal heart rate and rhythm. Pulses normal. Respiratory: No respiratory distress. Breath sounds normal. Abdomen: Soft and nontender. +BS x4 Skin: Skin warm and dry. Normal skin color. Normal skin turgor. No rashes. Extremities: No lower extremity edema. Right ankle an Aircast. Superficial abrasions to left forearm, no active bleeding. Multiple scars on bilateral forearms from prior cutting. Neuro/psych: Oriented X 3. No motor deficit. No sensory deficit. CN II-XII intact. Normal speech and cognition. Good insight and judgment. Not suicidal. Reports auditory hallucinations that are chronic. Course Course Course Narrative: 46-year-old female well known to the ER with a history of bipolar 2, borderline personality disorder, chronic auditory hallucinations and suicidal ideation with multiple times in the past who presents to the ER for evaluation of auditory hallucinations telling her to go to the store to get medications to overdose on. She did not do so and she came to the ER instead. She does have a history of multiple acetaminophen overdose is an require neck treatment inpatient level of care. Will check Tylenol level and basic lab workup. Will have care team assess her. Reevaluation(s) Reevaluation #1: Tylenol level is negative. Labs unremarkable. Care team evaluate her and she is stable for discharge back to her halfway. Patient agrees with plan and would like to be discharged. Medications Administered Discontinued Medications Generic Name Dose Route Start Last Admin Trade Name Freq PRN Reason Stop Dose Admin Ibuprofen 600 mg 10/15/22 18:24 10/15/22 18:38 Ibuprofen 600 Mg Tablet PO 10/15/22 18:25 600 mg ONCE ONE Administration Medical Decision Making Differential Diagnosis Differential Diagnoses: The differential diagnosis associated with the presentation includes Polysubstance overdose, acetaminophen overdose, suicidal ideation, depression, anxiety, PTSD, adjustment disorder, borderline personality disorder, chronic auditory hallucinations Admission/Observation Consideration of admission/observation: Escalation of care including admission/observation considered This is her chronic baseline presentation, does not require admission at this time Consult Healthcare Provider Management of the patient was discussed with: Behavioral Health Provider Care garment steamer evaluated the patient and recommending discharge home. Lab Data MDM Lab Attestation statement: I reviewed the patient's lab results. Result Diagrams: 10/15/22 18:28 10/15/22 18:28 Labs: Lab Results 10/15/22 10/15/22 10/15/22 Range/Units 17:44 17:44 17:44 WBC (4.8-10.8) X10*3/uL RBC (4.20-5.50) X10*6/uL Hgb (12.0-16.0) g/dl Hct (37.0-47.0) % MCV (80.0-98.0) fL MCH (27.0-33.0) pg MCHC (31.0-35.0) g/dl RDW (11.0-16.0) % Plt Count (160-400) X10*3/uL MPV (9.4-12.3) fL Immature Gran % (Auto) (0.0-0.4) % Neut % (Auto) (45-73) % Lymph % (Auto) (20-40) % [place] % (Auto) (2-11) % Eos % (Auto) (0-4) % Baso % (Auto) (0-2) % Lymph # (Auto) (1.2-4.9) X10*3/uL [place] # (Auto) (0.1-1.2) X10*3/uL Eos # (Auto) (0.0-0.4) X10*3/uL Baso # (Auto) (0.0-0.2) X10*3/uL Abs Immat Gran (auto) (0.00-0.03) X10*3/uL Absolute Neuts (auto) (2.0-8.3) x10*3/uL Absolute Nucleated RBC (0.0-0.012) X10*3/uL Nucleated RBC % (auto) (0.0-0.2) /100WBC Sodium (135-145) mmol/L Potassium (3.3-5.1) mmol/L Chloride (96-108) mmol/L Carbon Dioxide (22-29) mmol/L Anion Gap (12-20) BUN (9-16) mg/dL Creatinine (0.5-1.4) mg/dL Estim Creat Clear Calc Estimated GFR Random Glucose (60-115) mg/dL Calcium (8.4-10.2) mg/dL Total Bilirubin (0.0-1.0) mg/dL Direct Bilirubin (0.0-0.5) mg/dL AST (5-31) U/L ALT (0-31) U/L Alkaline Phosphatase (39-117) U/L Total Protein (6.5-8.0) g/dL Albumin (3.5-5.0) g/dL Urine Color Yellow Urine Appearance Clear Urine pH 6.5 (5.0-9.0) Ur Specific [place] 1.010 (1.005-1.025) Urine Protein Negative (Neg-Trace) mg/dL Urine Glucose (UA) Negative (Negative) mg/dL Urine Ketones Negative (Negative) mg/dL Urine Blood Large (3+) H (Negative) Urine Nitrite Negative (Negative) Ur Leukocyte Esterase Negative (Negative) Urine RBC 0-2 (0-2) /HPF Urine WBC 0-5 (0-5) /HPF Ur Squamous Epith Cells 0-2 (0-2) /HPF Urine Bacteria None Seen (None Seen) Hyaline Casts 0-2 (0-2) /LPF Urine Opiates Screen Not Detected (Not Detect) Urine Fentanyl Screen Not Detected (Not Detect) Acetaminophen (<30) mcg/mL Ur Barbiturates Screen Not Detected (Not Detect) Ur Phencyclidine Scrn Not Detected (Not Detect) Ur Amphetamines Screen Not Detected (Not Detect) U Benzodiazepines Scrn Not Detected (Not Detect) Urine Cocaine Screen Not Detected (Not Detect) U Marijuana (THC) Screen Not Detected (Not Detect) Ethyl Alcohol mg/dL COVID-19 (NICK) Negative (Negative) COVID-19 Clin Com See Note 10/15/22 10/15/22 Range/Units 18:28 18:28 WBC 5.9 (4.8-10.8) X10*3/uL RBC 3.64 L (4.20-5.50) X10*6/uL Hgb 9.8 L (12.0-16.0) g/dl Hct 30.8 L (37.0-47.0) % MCV 84.6 (80.0-98.0) fL MCH 26.9 L (27.0-33.0) pg MCHC 31.8 (31.0-35.0) g/dl RDW 14.8 (11.0-16.0) % Plt Count 263 (160-400) X10*3/uL MPV 9.7 (9.4-12.3) fL Immature Gran % (Auto) 0.3 (0.0-0.4) % Neut % (Auto) 56.6 (45-73) % Lymph % (Auto) 26.7 (20-40) % [place] % (Auto) 9.5 (2-11) % Eos % (Auto) 6.6 H (0-4) % Baso % (Auto) 0.3 (0-2) % Lymph # (Auto) 1.6 (1.2-4.9) X10*3/uL [place] # (Auto) 0.6 (0.1-1.2) X10*3/uL Eos # (Auto) 0.4 (0.0-0.4) X10*3/uL Baso # (Auto) 0.0 (0.0-0.2) X10*3/uL Abs Immat Gran (auto) 0.02 (0.00-0.03) X10*3/uL Absolute Neuts (auto) 3.3 (2.0-8.3) x10*3/uL Absolute Nucleated RBC 0.000 (0.0-0.012) X10*3/uL Nucleated RBC % (auto) 0.0 (0.0-0.2) /100WBC Sodium 140 (135-145) mmol/L Potassium 3.9 (3.3-5.1) mmol/L Chloride 107 (96-108) mmol/L Carbon Dioxide 23 (22-29) mmol/L Anion Gap 14 (12-20) BUN 10 (9-16) mg/dL Creatinine 0.73 (0.5-1.4) mg/dL Estim Creat Clear Calc 112.9 Estimated GFR > 60 Random Glucose 99 (60-115) mg/dL Calcium 8.8 (8.4-10.2) mg/dL Total Bilirubin 0.2 (0.0-1.0) mg/dL Direct Bilirubin < 0.2 (0.0-0.5) mg/dL AST 18 (5-31) U/L ALT 16 (0-31) U/L Alkaline Phosphatase 106 (39-117) U/L Total Protein 6.5 (6.5-8.0) g/dL Albumin 4.1 (3.5-5.0) g/dL Urine Color Urine Appearance Urine pH (5.0-9.0) Ur Specific [place] (1.005-1.025) Urine Protein (Neg-Trace) mg/dL Urine Glucose (UA) (Negative) mg/dL Urine Ketones (Negative) mg/dL Urine Blood (Negative) Urine Nitrite (Negative) Ur Leukocyte Esterase (Negative) Urine RBC (0-2) /HPF Urine WBC (0-5) /HPF Ur Squamous Epith Cells (0-2) /HPF Urine Bacteria (None Seen) Hyaline Casts (0-2) /LPF Urine Opiates Screen (Not Detect) Urine Fentanyl Screen (Not Detect) Acetaminophen < 1 (<30) mcg/mL Ur Barbiturates Screen (Not Detect) Ur Phencyclidine Scrn (Not Detect) Ur Amphetamines Screen (Not Detect) U Benzodiazepines Scrn (Not Detect) Urine Cocaine Screen (Not Detect) U Marijuana (THC) Screen (Not Detect) Ethyl Alcohol < 10 mg/dL COVID-19 (NICK) (Negative) COVID-19 Clin Com Independent Historian Clinical information obtained from an independent historian. History obtained from or confirmed by: EMS External Record Review External record reviewed: Inpatient record, Outpatient record and Prior outpatient labs Prescription Management I considered prescription management with: Pain Medication Motrin only for ankle pain Critical Care Time Critical Care Time Critical Care Time: No Discharge Plan Discharge Clinical Impression: Auditory hallucinations Patient Disposition: Home, Self-Care Instructions: Psychiatric Hallucinations (ED) Additional Instructions: Take all your medications as prescribed. Follow-up with your psychiatrist, therapist and provider soon as possible. If you develop new or worsening symptoms call 911 or come back to the ER for further evaluation. Prescriptions: No Action metformin 500 mg tablet 1 tab PO BID atorvastatin 10 mg tablet 10 mg PO DAILY montelukast 10 mg tablet 1 tab PO BEDTIME chlorpromazine 25 mg tablet 3 tab PO DAILY@1700 nicotine (polacrilex) 4 mg gum 1 ea PO Q2H PRN (Reason: Smoking Cessation) lisinopril 5 mg tablet 1 tab PO DAILY fluoxetine 20 mg capsule 60 mg PO DAILY prazosin 1 mg Capsule 4 mg PO BEDTIME 30 Days Qty: 120 0RF Protocol: Hold for SBP< HOLD for SBP < : 90 fluphenazine HCl 5 mg tablet 1 tab PO BEDTIME sennosides [senna] 8.6 mg Tablet 8.6 mg PO BEDTIME PRN (Reason: Constipation) trazodone 150 mg tablet 1 tab PO BEDTIME Interventions: [place]-Suicide Risk Severity Scale Last Done: 10/15/22 17:14 ED Discharge Assessment Last Done: 10/15/22 21:10 Discharge Date/Time: 10/15/22 21:11
[2022-10-15 17:38] VITALS: RESP 16
[2022-10-15 17:54] LABS: Appearance Urine Clear; Color Urine Yellow; Glucose Urine UA Negative (Negative); Leukocyte Esterase Urine Negative (Negative); Nitrite Urine Negative (Negative); PH 6.5 (5.0-9.0); UMIC TRIGGER UACC YES; Urine Blood Large (3+) (Negative); Urine Ketones Negative (Negative); Urine Protein Negative (Neg-Trace)
[2022-10-15 18:01] LABS: Bacteria Urine None Seen (None Seen); Hyaline Casts Urine 0-2 /LPF (0-2); RBC Urine 0-2 /HPF (0-2); Squamous Epithelial Cell Urine 0-2 /HPF (0-2); WBC Urine 0-5 /HPF (0-5)
[2022-10-15 18:04] LABS: Amphetamine Screen Urine Not Detected (Not Detect); Barbiturates, Urine Not Detected (Not Detect); Benzodiazepines Screen Urine Not Detected (Not Detect); Cannabinoid Screen Urine Not Detected (Not Detect); Cocaine Screen Urine Not Detected (Not Detect); Fentanyl, urine Not Detected (Not Detect); Opiate Screen Urine Not Detected (Not Detect); Phencyclidine Screen Urine Not Detected (Not Detect)
[2022-10-15 18:15] LABS: COVID-19 Test Negative (Negative); IDNOW Serial# 6674DD1D
[2022-10-15 18:36] LABS: MANUAL DIFF FLAG NO
[2022-10-15] MEDS: Ibuprofen 600 MG TABLET PO (18:38)
[2022-10-15 18:39] LABS: Basophils Percent Auto 0.3 % (0-2); Eosinophils Absolute Auto 0.4 X10*3/uL (0.0-0.4); Eosinophils Percent Auto 6.6 % (0-4); Hematocrit 30.8 % (37.0-47.0); Hemoglobin 9.8 g/dl (12.0-16.0); Imm Gran Abs Auto 0.02 X10*3/uL (0.00-0.03); Imm Gran Pct Auto 0.3 % (0.0-0.4); Lymphocytes Absolute Auto 1.6 X10*3/uL (1.2-4.9); Lymphocytes Percent Auto 26.7 % (20-40); Mean Corpuscular HGB Conc 31.8 g/dl (31.0-35.0); Mean Corpuscular Hemoglobin 26.9 pg (27.0-33.0); Mean Corpuscular Volume 84.6 fL (80.0-98.0); Mean Platelet Volume 9.7 fL (9.4-12.3); Monocytes Absolute Auto 0.6 X10*3/uL (0.1-1.2); Monocytes Percent Auto 9.5 % (2-11); Neutrophils Absolute Auto 3.3 x10*3/uL (2.0-8.3); Neutrophils Percent Auto 56.6 % (45-73); Platelet Count 263 X10*3/uL (160-400); Red Blood Count 3.64 X10*6/uL (4.20-5.50); Red Cell Distribution Width 14.8 % (11.0-16.0); White Blood Count 5.9 X10*3/uL (4.8-10.8)
[2022-10-15 18:53] LABS: Acetaminophen LAB < 1 mcg/mL (<30); Alanine Aminotransferase 16 U/L (0-31); Albumin Level 4.1 g/dL (3.5-5.0); Alkaline Phosphatase 106 U/L (39-117); Anion Gap 14 (12-20); Aspartate Amino Transferase 18 U/L (5-31); Bilirubin Direct < 0.2 mg/dL (0.0-0.5); Bilirubin Total 0.2 mg/dL (0.0-1.0); Blood Urea Nitrogen 10 mg/dL (9-16); Calcium 8.8 mg/dL (8.4-10.2); Carbon Dioxide 23 mmol/L (22-29); Chloride 107 mmol/L (96-108); Creatinine Clr Calc Pharmacy 112.9; Estimated Glomerular Filt Rate > 60; Ethanol < 10 mg/dL; Glucose Random 99 mg/dL (60-115); Potassium 3.9 mmol/L (3.3-5.1); Sodium 140 mmol/L (135-145); Total Protein 6.5 g/dL (6.5-8.0)
== END 2022-10-15 21:11 | disposition home or self-care (01) ==
PROVIDERS: Physician Assistant; Emergency Provider Internal Medicine; PCP Nurse Practitioner Family
DX: R44.0 Auditory hallucinations (principal); R45.851 Suicidal ideations; Z20.822 Contact with and (suspected) exposure to COVID-19; Z79.899 Other long term (current) drug therapy; F17.210 Nicotine dependence, cigarettes, uncomplicated; Z71.6 Tobacco abuse counseling
CPT/HCPCS: 80048; 80076; 80143; 80307; 81001; 82077; 85025; 87635; 99285

== ENCOUNTER 2022-10-16 17:26 | Emergency (ER) | payer MEDICARE, MEDICAID, SELFPAY ==
--- NOTE | 2022-10-16 17:36 | ED_ITS ---
HPI - Psych General Chief Complaint: Psychiatric Symptoms Stated Complaint: Hearing voices, minor lac on R arm per EMS Time Seen by Provider: 10/16/22 17:27 Source: patient and EMS Mode of arrival: EMS Limitations: no limitations History of Present Illness HPI Narrative: ? 46-year-old female past medical history significant personality depression bipolar 2 with melancholic peatures, PTSD, DM, GERD presents via ambulance?for complaints of visual, auditory hallucinations, self-inflicted wounds to left forearm, depression x1 day worsening. Patient reported the anniversary of her mother's is coming up on October 23 which is really upsetting her. She tells me she is hearing voices telling her to cut herself and seeing shadows. She tells me she cut herself with broken glass. Up-to-date on tetanus shot. Denies medical complaints. Tearful upon arrival. Denies homicidal ideation and suicidal ideation. She tells me she is to stabbed. Related Data Home Medications Medication Instructions Recorded Confirmed atorvastatin 10 mg tablet 10 mg PO DAILY 05/29/21 10/15/22 metformin 500 mg tablet 1 tab PO BID 05/29/21 10/15/22 montelukast 10 mg tablet 1 tab PO BEDTIME 05/29/21 10/15/22 fluphenazine HCl 5 mg tablet 1 tab PO BEDTIME 03/19/22 10/15/22 chlorpromazine 25 mg tablet 3 tab PO DAILY@1700 06/17/22 10/15/22 fluoxetine 20 mg capsule 60 mg PO DAILY 07/30/22 10/15/22 lisinopril 5 mg tablet 1 tab PO DAILY 07/30/22 10/15/22 nicotine (polacrilex) 4 mg gum 1 ea PO Q2H PRN Smoking Cessation 07/30/22 10/15/22 sennosides 8.6 mg tablet (senna) 8.6 mg PO BEDTIME PRN Constipation 09/11/22 10/15/22 trazodone 150 mg tablet 1 tab PO BEDTIME 09/23/22 10/15/22 Previous Rx's Medication Instructions Recorded prazosin 1 mg capsule 4 mg PO BEDTIME 30 days #120 caps 10/18/21 Allergies Allergy/AdvReac Type Severity Reaction Status Date / Time Fish Containing Products Allergy Severe ANAPHYLAXIS Verified 08/29/22 12:26 codeine [Codeine] Allergy Intermediate RASH Verified 08/29/22 12:26 Penicillins Allergy Intermediate RASH Verified 08/29/22 12:26 prednisone [Prednisone] Allergy Intermediate RASH Verified 08/29/22 12:26 Sulfa (Sulfonamide Allergy Intermediate RASH Verified 08/29/22 12:26 Antibiotics) [Sulfa (Sulfonamides)] azithromycin [AZITHROMYCIN] AdvReac Severe RASH Verified 08/29/22 12:26 ziprasidone [From Geodon] AdvReac Intermediate dysuria, Verified 08/29/22 12:26 rash Review of Systems Review of Systems: Constitutional : No Weight loss, No Fever, No Chills, No Fatigue, No Malaise ENT/Mouth : No sore throat, No Rhinorrhea Eyes: No Eye Pain, No Swelling, No Redness Cardiovascular : No Chest Pain, No SOB, No Dyspnea on Exertion, No Orthopnea, No Edema, No Palpitations Respiratory : No Cough, No Sputum, No Wheezing Gastrointestinal : No Nausea, No Vomiting, No Diarrhea, No Constipation, No abdominal Pain, No Hematochezia, No Melena Genitourinary : No Dysuria, No Urinary Frequency, No Hematuria, Musculoskeletal : No joint pain, No Myalgias, No Joint Swelling Skin : No Skin Lesions, No rash, + laceration Neuro : No Weakness, No Numbness, No Dizziness, No Headache Psych : + Anxiety/Panic, No Depression, + SI, No HI Heme/Lymph: No Bruising, No Bleeding,No Lymphadenopathy Endocrine : No Polyuria, No Polydipsia ? Yes all other systems are reviewed and are negative PMFSH Past Medical History Attestation statement: The following information was validated with the patient. 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: Other Household Members Other:: usp Housing: Other Housing Other:: usp Do you presently have visiting nurse or other home services: No Unable to assess alcohol history related to: Unknown Alcohol intake: former Patient Tobacco Use Status: Current everyday Tobacco user Tobacco use type: Cigarette Cigarette Packs Per Day: 1 Cigarettes Per Day: 16 Years Smoked: 20 e-Cigarette/Vaping Use: Never Used Substance Use Type: Marijuana Advance Directives: No Advance Directives Information Provided: No service: No Current occupational status: unemployed and disabled Sexual orientation: Don't Know Physical Exam Vital Signs: Vital Signs: Last Vital Signs Temp 98.5 F 10/16/22 17:56 Pulse 100 10/16/22 17:56 Resp 18 10/16/22 17:56 BP 153/89 H 10/16/22 17:56 Pulse Ox 97 10/16/22 17:56 O2 Del Method 10/16/22 17:56 BMI result Body Mass Index 37.1 vss Appearance: Alert.? Oriented X3.? No acute distress.? Head:? Normocephalic, atraumatic, no step-offs or deformities Eyes: Pupils equal, round and reactive to light.? CVS: Normal heart rate and rhythm.? Pulses normal.? Respiratory: No respiratory distress.? Breath sounds normal.? Abdomen: Soft and nontender.? Skin: Skin warm and dry.? Normal skin color.? Normal skin turgor.? Extremities: No lower extremity edema.? No calf ttp.? 5/5 strength to bilateral upper and lower extremities + superficial healing self-inflicted wounds to left wrist, abdomen, left lower extremity w/ some acute self inflicted wounds Neuro: Oriented X 3.? No motor deficit.? No sensory deficit. CN 2-12 intact? Course Reevaluation(s) Reevaluation #1: Patient is noted to have a normocytic anemia which appears to be around her baseline. COVID negative. Chemistry pending. UA and urine tox pending. Time: 19:53 Reevaluation #2: Chemistry with no acute findings requiring intervention. UA clean without infection. Salicylates, acetaminophen and ethanol negative. Patient was evaluated by the care team who feels as though she is appropriate for discharge home. Patient excited an optimistic to leave. Denies SI and HI. Educated patient on diagnosis and treatment plan, answered all question, patient verbalizes understanding. At this time patient will be discharged home, advised to return with new or worsening symptoms. Educated on worrisome signs and symptoms and when to return. At this time I feel comfortable discharge home. Time: 20:37 Medications Administered Discontinued Medications Generic Name Dose Route Start Last Admin Trade Name Elmer PRN Reason Stop Dose Admin Chlorpromazine HCl 75 mg 10/16/22 17:44 10/16/22 18:27 Chlorpromazine Hcl 25 Mg Tablet PO 10/16/22 17:45 75 mg ONCE ONE Administration Medical Decision Making Medical Decision Making [facility] Narrative: [id number] 46-year-old female presenting with anxiety, depression, visual and auditory hallucinations , self-inflicted wounds to left forearm x1 day Physical examination with acute and superficial healing self-inflicted wounds to left wrist, abdomen, left lower extremity. Em MDD vs borderline personality do vs anxiety. Unlikely metabolic causes. Plan- medical clearance and evaluation by [facility] Differential Diagnosis Differential Diagnoses: The differential diagnosis associated with the presentation includes MDD vs borderline personality do vs anxiety. Unlikely metabolic causes. Admission/Observation Consideration of admission/observation: Escalation of care including admission/observation considered Consult Healthcare Provider Management of the patient was discussed with: Behavioral Health Provider Lab Data [facility] Lab Attestation statement: I reviewed the patient's lab results. Result Diagrams: 10/16/22 19:30 10/16/22 19:30 Labs: Lab Results 10/16/22 10/16/22 10/16/22 Range/Units 17:54 18:35 18:35 WBC (4.8-10.8) X10*3/uL RBC (4.20-5.50) X10*6/uL Hgb (12.0-16.0) g/dl Hct (37.0-47.0) % MCV (80.0-98.0) fL MCH (27.0-33.0) pg MCHC (31.0-35.0) g/dl RDW (11.0-16.0) % Plt Count (160-400) X10*3/uL MPV (9.4-12.3) fL Immature Gran % (Auto) (0.0-0.4) % Neut % (Auto) (45-73) % Lymph % (Auto) (20-40) % [place] % (Auto) (2-11) % Eos % (Auto) (0-4) % Baso % (Auto) (0-2) % Lymph # (Auto) (1.2-4.9) X10*3/uL [place] # (Auto) (0.1-1.2) X10*3/uL Eos # (Auto) (0.0-0.4) X10*3/uL Baso # (Auto) (0.0-0.2) X10*3/uL Abs Immat Gran (auto) (0.00-0.03) X10*3/uL Absolute Neuts (auto) (2.0-8.3) x10*3/uL Absolute Nucleated RBC (0.0-0.012) X10*3/uL Nucleated RBC % (auto) (0.0-0.2) /100WBC Sodium (135-145) mmol/L Potassium (3.3-5.1) mmol/L Chloride (96-108) mmol/L Carbon Dioxide (22-29) mmol/L Anion Gap (12-20) BUN (9-16) mg/dL Creatinine (0.5-1.4) mg/dL Estim Creat Clear Calc Estimated GFR Random Glucose (60-115) mg/dL Calcium (8.4-10.2) mg/dL Magnesium (1.6-2.6) mg/dL Total Bilirubin (0.0-1.0) mg/dL AST (5-31) U/L ALT (0-31) U/L Alkaline Phosphatase (39-117) U/L Total Protein (6.5-8.0) g/dL Albumin (3.5-5.0) g/dL Urine Color Yellow Urine Appearance Clear Urine pH 7.0 (5.0-9.0) Ur Specific [place] 1.010 (1.005-1.025) Urine Protein Negative (Neg-Trace) mg/dL Urine Glucose (UA) Negative (Negative) mg/dL Urine Ketones Negative (Negative) mg/dL Urine Blood Moderate (2+) H (Negative) Urine Nitrite Negative (Negative) Ur Leukocyte Esterase Trace H (Negative) Salicylates (15-30) mg/dL Urine Opiates Screen Not Detected (Not Detect) Urine Fentanyl Screen Not Detected (Not Detect) Acetaminophen (<30) mcg/mL Ur Barbiturates Screen Not Detected (Not Detect) Ur Phencyclidine Scrn Not Detected (Not Detect) Ur Amphetamines Screen Not Detected (Not Detect) U Benzodiazepines Scrn Not Detected (Not Detect) Urine Cocaine Screen Not Detected (Not Detect) U Marijuana (THC) Screen Not Detected (Not Detect) Ethyl Alcohol mg/dL COVID-19 (NICK) Negative (Negative) COVID-19 Clin Com See Note 10/16/22 10/16/22 10/16/22 Range/Units 19:30 19:30 19:30 WBC 5.8 (4.8-10.8) X10*3/uL RBC 3.59 L (4.20-5.50) X10*6/uL Hgb 9.6 L (12.0-16.0) g/dl Hct 30.7 L (37.0-47.0) % MCV 85.5 (80.0-98.0) fL MCH 26.7 L (27.0-33.0) pg MCHC 31.3 (31.0-35.0) g/dl RDW 14.6 (11.0-16.0) % Plt Count 281 (160-400) X10*3/uL MPV 9.6 (9.4-12.3) fL Immature Gran % (Auto) 0.3 (0.0-0.4) % Neut % (Auto) 58.9 (45-73) % Lymph % (Auto) 26.6 (20-40) % [place] % (Auto) 6.4 (2-11) % Eos % (Auto) 7.5 H (0-4) % Baso % (Auto) 0.3 (0-2) % Lymph # (Auto) 1.5 (1.2-4.9) X10*3/uL [place] # (Auto) 0.4 (0.1-1.2) X10*3/uL Eos # (Auto) 0.4 (0.0-0.4) X10*3/uL Baso # (Auto) 0.0 (0.0-0.2) X10*3/uL Abs Immat Gran (auto) 0.02 (0.00-0.03) X10*3/uL Absolute Neuts (auto) 3.4 (2.0-8.3) x10*3/uL Absolute Nucleated RBC 0.000 (0.0-0.012) X10*3/uL Nucleated RBC % (auto) 0.0 (0.0-0.2) /100WBC Sodium 142 (135-145) mmol/L Potassium 3.8 (3.3-5.1) mmol/L Chloride 107 (96-108) mmol/L Carbon Dioxide 24 (22-29) mmol/L Anion Gap 15 (12-20) BUN 8 L (9-16) mg/dL Creatinine 0.77 (0.5-1.4) mg/dL Estim Creat Clear Calc 113.7 Estimated GFR > 60 Random Glucose 112 (60-115) mg/dL Calcium 8.9 (8.4-10.2) mg/dL Magnesium 1.5 L (1.6-2.6) mg/dL Total Bilirubin 0.2 (0.0-1.0) mg/dL AST 16 (5-31) U/L ALT 16 (0-31) U/L Alkaline Phosphatase 107 (39-117) U/L Total Protein 6.7 (6.5-8.0) g/dL Albumin 4.2 (3.5-5.0) g/dL Urine Color Urine Appearance Urine pH (5.0-9.0) Ur Specific [place] (1.005-1.025) Urine Protein (Neg-Trace) mg/dL Urine Glucose (UA) (Negative) mg/dL Urine Ketones (Negative) mg/dL Urine Blood (Negative) Urine Nitrite (Negative) Ur Leukocyte Esterase (Negative) Salicylates < 5.0 L (15-30) mg/dL Urine Opiates Screen (Not Detect) Urine Fentanyl Screen (Not Detect) Acetaminophen < 1 (<30) mcg/mL Ur Barbiturates Screen (Not Detect) Ur Phencyclidine Scrn (Not Detect) Ur Amphetamines Screen (Not Detect) U Benzodiazepines Scrn (Not Detect) Urine Cocaine Screen (Not Detect) U Marijuana (THC) Screen (Not Detect) Ethyl Alcohol < 10 mg/dL COVID-19 (NICK) (Negative) COVID-19 Clin Com Independent Historian Clinical information obtained from an independent historian. History obtained from or confirmed by: Other (self ) External Record Review External record reviewed: Inpatient record, Office record, Outpatient record, Prior outpatient labs, Prior outpatient radiology, Primary care record and Outside ED record Critical Care Time Critical Care Time Critical Care Time: No Discharge Plan Discharge Clinical Impression: Depression, Acute anxiety Patient Disposition: Home, Self-Care Instructions: Depression (ED), Anxiety (ED) Additional Instructions: Take your medications as prescribed. If you were prescribed antibiotics today, it is important that you take your medication to their entirety, do not skip any doses, do not finish them early. Follow-up with your primary care provider this week. Follow-up with behavioral health team if needed Return to the emergency department with new or worsening symptoms. Such as fevers, chills, chest pain, shortness of breath, nausea, vomiting, dizziness, headache, vision changes, lethargy, suicidal ideation, homicidal ideation In case of emergency call 911 Prescriptions: No Action metformin 500 mg tablet 1 tab PO BID atorvastatin 10 mg tablet 10 mg PO DAILY montelukast 10 mg tablet 1 tab PO BEDTIME chlorpromazine 25 mg tablet 3 tab PO DAILY@1700 nicotine (polacrilex) 4 mg gum 1 ea PO Q2H PRN (Reason: Smoking Cessation) lisinopril 5 mg tablet 1 tab PO DAILY fluoxetine 20 mg capsule 60 mg PO DAILY prazosin 1 mg Capsule 4 mg PO BEDTIME 30 Days Qty: 120 0RF Protocol: Hold for SBP< HOLD for SBP < : 90 fluphenazine HCl 5 mg tablet 1 tab PO BEDTIME sennosides [senna] 8.6 mg Tablet 8.6 mg PO BEDTIME PRN (Reason: Constipation) trazodone 150 mg tablet 1 tab PO BEDTIME [facility]Provider Group[facility] - 1 day
[2022-10-16 17:56] VITALS: BP 130/70; BP 153/89; PULSE 100; PULSE 110; RESP 18; TEMP 36.9; O2SAT 97; O2SAT 98; BMI 37.1
[2022-10-16 18:24] LABS: COVID-19 Test Negative (Negative); IDNOW Serial# BCCEAD1C
[2022-10-16] MEDS: chlorproMAZINE HCl 25 MG TABLET 75 MG PO (18:27)
[2022-10-16 18:51] LABS: Appearance Urine Clear; Color Urine Yellow; Glucose Urine UA Negative (Negative); Leukocyte Esterase Urine Trace (Negative); Nitrite Urine Negative (Negative); UMIC TRIGGER UACC YES; Urine Blood Moderate (2+) (Negative); Urine Ketones Negative (Negative); Urine Protein Negative (Neg-Trace)
[2022-10-16 18:56] LABS: Amphetamine Screen Urine Not Detected (Not Detect); Barbiturates, Urine Not Detected (Not Detect); Benzodiazepines Screen Urine Not Detected (Not Detect); Cannabinoid Screen Urine Not Detected (Not Detect); Cocaine Screen Urine Not Detected (Not Detect); Fentanyl, urine Not Detected (Not Detect); Opiate Screen Urine Not Detected (Not Detect); Phencyclidine Screen Urine Not Detected (Not Detect)
[2022-10-16 19:34] LABS: MANUAL DIFF FLAG NO
[2022-10-16 19:41] LABS: Basophils Percent Auto 0.3 % (0-2); Eosinophils Absolute Auto 0.4 X10*3/uL (0.0-0.4); Eosinophils Percent Auto 7.5 % (0-4); Hematocrit 30.7 % (37.0-47.0); Hemoglobin 9.6 g/dl (12.0-16.0); Imm Gran Abs Auto 0.02 X10*3/uL (0.00-0.03); Imm Gran Pct Auto 0.3 % (0.0-0.4); Lymphocytes Absolute Auto 1.5 X10*3/uL (1.2-4.9); Lymphocytes Percent Auto 26.6 % (20-40); Mean Corpuscular HGB Conc 31.3 g/dl (31.0-35.0); Mean Corpuscular Hemoglobin 26.7 pg (27.0-33.0); Mean Corpuscular Volume 85.5 fL (80.0-98.0); Mean Platelet Volume 9.6 fL (9.4-12.3); Monocytes Absolute Auto 0.4 X10*3/uL (0.1-1.2); Monocytes Percent Auto 6.4 % (2-11); Neutrophils Absolute Auto 3.4 x10*3/uL (2.0-8.3); Neutrophils Percent Auto 58.9 % (45-73); Platelet Count 281 X10*3/uL (160-400); Red Blood Count 3.59 X10*6/uL (4.20-5.50); Red Cell Distribution Width 14.6 % (11.0-16.0); White Blood Count 5.8 X10*3/uL (4.8-10.8)
[2022-10-16 19:52] LABS: Ethanol < 10 mg/dL
[2022-10-16 19:55] LABS: Acetaminophen LAB < 1 mcg/mL (<30); Alanine Aminotransferase 16 U/L (0-31); Albumin Level 4.2 g/dL (3.5-5.0); Alkaline Phosphatase 107 U/L (39-117); Anion Gap 15 (12-20); Aspartate Amino Transferase 16 U/L (5-31); Bilirubin Total 0.2 mg/dL (0.0-1.0); Blood Urea Nitrogen 8 mg/dL (9-16); Calcium 8.9 mg/dL (8.4-10.2); Carbon Dioxide 24 mmol/L (22-29); Chloride 107 mmol/L (96-108); Creatinine Clr Calc Pharmacy 113.7; Estimated Glomerular Filt Rate > 60; Glucose Random 112 mg/dL (60-115); Magnesium 1.5 mg/dL (1.6-2.6); Potassium 3.8 mmol/L (3.3-5.1); Salicylate < 5.0 mg/dL (15-30); Sodium 142 mmol/L (135-145); Total Protein 6.7 g/dL (6.5-8.0)
[2022-10-16 20:59] LABS: Bacteria Urine 1+ (None Seen); Hyaline Casts Urine 0-2 /LPF (0-2); WBC Urine 0-5 /HPF (0-5)
== END 2022-10-16 20:38 | disposition home or self-care (01) ==
PROVIDERS: Physician Assistant; Emergency Provider Internal Medicine
DX: F32.A Depression, unspecified (principal); F41.9 Anxiety disorder, unspecified; S51.812A Laceration without foreign body of left forearm, initial encounter; S61.512A Laceration without foreign body of left wrist, initial encounter; S81.812A Laceration without foreign body, left lower leg, initial encounter; X78.9XXA Intentional self-harm by unspecified sharp object, initial encounter; R44.0 Auditory hallucinations; F60.3 Borderline personality disorder; E11.9 Type 2 diabetes mellitus without complications; E78.5 Hyperlipidemia, unspecified; D64.9 Anemia, unspecified; F43.10 Post-traumatic stress disorder, unspecified; F17.210 Nicotine dependence, cigarettes, uncomplicated; F12.90 Cannabis use, unspecified, uncomplicated; E66.9 Obesity, unspecified; Z68.43 Body mass index [BMI] 50.0-59.9, adult; Z20.822 Contact with and (suspected) exposure to COVID-19; Y93.9 Activity, unspecified; Y92.049 Unspecified place in boarding-house as the place of occurrence of the external cause; Y99.9 Unspecified external cause status; Z91.51 Personal history of suicidal behavior; Z91.52 Personal history of nonsuicidal self-harm; Z79.84 Long term (current) use of oral hypoglycemic drugs; Z79.899 Other long term (current) drug therapy
CPT/HCPCS: 36415; 80053; 80143; 80179; 80307; 81001; 81003; 82077; 83735; 85025; 87635; 99283; 99284

== ENCOUNTER 2022-10-22 18:46 | Emergency (ER) | payer MEDICARE, MEDICAID, SELFPAY ==
[2022-10-22 18:57] VITALS: BP 158/81; PULSE 115; RESP 18; TEMP 36.9; O2SAT 95; BMI 39.1
--- NOTE | 2022-10-22 19:00 | ED_ITS ---
HPI - Psych General Chief Complaint: Psychiatric Symptoms Stated Complaint: SI Time Seen by Provider: 10/22/22 18:55 Source: patient and EMS Mode of arrival: EMS Limitations: no limitations History of Present Illness HPI Narrative: 46-year-old female presents via EMS from respite for psychiatric evaluation MD complaint: suicidal ideation, feels depressed and anxiety Onset (ago): year(s) Duration: constant History of same: Yes Relieving factors: none Context: significant life stressor Associated psychiatric symptoms: depression, suicidal ideation, racing thoughts, auditory hallucinations and visual hallucinations Associated symptoms: denies other symptoms Treatments prior to arrival: none If self harm: admits thoughts of self harm, has plan and has acted on plan Related Data Home Medications Medication Instructions Recorded Confirmed atorvastatin 10 mg tablet 10 mg PO DAILY 05/29/21 10/22/22 metformin 500 mg tablet 1 tab PO BID 05/29/21 10/22/22 montelukast 10 mg tablet 1 tab PO BEDTIME 05/29/21 10/22/22 fluphenazine HCl 5 mg tablet 1 tab PO BEDTIME 03/19/22 10/22/22 chlorpromazine 25 mg tablet 3 tab PO DAILY@1700 06/17/22 10/22/22 fluoxetine 20 mg capsule 60 mg PO DAILY 07/30/22 10/22/22 lisinopril 5 mg tablet 1 tab PO DAILY 07/30/22 10/22/22 nicotine (polacrilex) 4 mg gum 1 ea PO Q2H PRN Smoking Cessation 07/30/22 10/22/22 sennosides 8.6 mg tablet (senna) 8.6 mg PO BEDTIME PRN Constipation 09/11/22 10/22/22 trazodone 150 mg tablet 1 tab PO BEDTIME 09/23/22 10/22/22 Previous Rx's Medication Instructions Recorded prazosin 1 mg capsule 4 mg PO BEDTIME 30 days #120 caps 10/18/21 Allergies Allergy/AdvReac Type Severity Reaction Status Date / Time Fish Containing Products Allergy Severe ANAPHYLAXIS Verified 08/29/22 12:26 codeine [Codeine] Allergy Intermediate RASH Verified 08/29/22 12:26 Penicillins Allergy Intermediate RASH Verified 08/29/22 12:26 prednisone [Prednisone] Allergy Intermediate RASH Verified 08/29/22 12:26 Sulfa (Sulfonamide Allergy Intermediate RASH Verified 08/29/22 12:26 Antibiotics) [Sulfa (Sulfonamides)] azithromycin [AZITHROMYCIN] AdvReac Severe RASH Verified 08/29/22 12:26 ziprasidone [From Geodon] AdvReac Intermediate dysuria, Verified 08/29/22 12:26 rash Review of Systems Review of Systems: Constitutional: No Fever, No Chills Cardiovascular: No Chest Pain, No SOB Respiratory: No Cough, No Dyspnea Gastrointestinal: No Nausea, No Vomiting, No Diarrhea, No abdominal Pain Genitourinary: No Dysuria, No Hematuria Musculoskeletal: No joint pain, No Myalgias, No Joint Swelling Skin: No Skin lacerations, No rash Neuro: No Weakness, No Numbness, No Paresthesias, No Loss of Consciousness, No Dizziness, No Headache Psych: Positive Anxiety/Panic, positive Depression, positive suicidal ideation Yes all other systems are reviewed and are negative [facility] Past Medical History Attestation statement: The following information was validated with the patient. Source: old records reviewed Medical History Acetaminophen overdose Borderline personality disorder Bronchitis Depression Diabetes type 2, controlled Full body hives GERD (gastroesophageal reflux disease) History of attempted suicide History of non-suicidal self-harm Hyperlipidemia Hypomagnesemia Major depression MDD (major depressive disorder), recurrent episode, severe Mood disorder Overdose PTSD (post-traumatic stress disorder) Suicide attempt Suicide attempt by acetaminophen overdose Social History Social History Household Members: Other Household Members Other:: prison Housing: Other Housing Other:: prison Do you presently have visiting nurse or other home services: No Unable to assess alcohol history related to: Unknown Alcohol intake: former Patient Tobacco Use Status: Current everyday Tobacco user Tobacco use type: Cigarette Cigarette Packs Per Day: 1 Cigarettes Per Day: 16 Years Smoked: 20 e-Cigarette/Vaping Use: Never Used Substance Use Type: Marijuana Advance Directives: No Advance Directives Information Provided: No service: No Current occupational status: unemployed and disabled Sexual orientation: Don't Know Physical Exam Vital Signs: Vital Signs: Last Vital Signs Temp 98.5 F 10/22/22 18:57 Pulse 115 H 10/22/22 18:57 Resp 18 10/22/22 18:57 BP 158/81 H 10/22/22 18:57 Pulse Ox 95 10/22/22 18:57 O2 Del Method 10/22/22 18:57 BMI result Body Mass Index 39.1 vss Appearance: Alert.? Oriented X3.? Moderate emotional distress.? Head:? Normocephalic, atraumatic, no step-offs or deformities Eyes: Pupils equal, round and reactive to light.? CVS: Normal heart rate and rhythm.? Pulses normal.? Respiratory: No respiratory distress.? Breath sounds normal.? Abdomen: Soft and nontender.? Skin: Skin warm and dry.? Normal skin color.? Normal skin turgor.? Extremities: No lower extremity edema.? 5/5 strength to bilateral upper and lower extremities + superficial healing self-inflicted wounds to left wrist, abdomen, left lower extremity w/ some acute self inflicted wounds Neuro: Oriented X 3.? No motor deficit.? No sensory deficit. CN 2-12 intact? Course Course Course Narrative: 46 year old female presents via EMS from a respite facility for psychiatric evaluation. Patient presents to this facility on a regular basis and has a care plan in place. Plan of care is to evaluate this patient in the morning. Jose Juan gutiérrez states to have anxiety, is suicidal, and has auditory and visual hallucinations. States that she misses her mother. Will order labs, and consult. 23:58 labs negative for acute findings. Physician observation at this time. Crisis eval pending. Medications Administered Generic Name Dose Route Start Last Admin Trade Name Elmer PRN Reason Stop Dose Admin Chlorpromazine HCl 75 mg 10/22/22 20:00 10/22/22 20:31 Chlorpromazine Hcl 25 Mg Tablet PO 75 mg DAILY@1700 YULY Administration Fluphenazine HCl 5 mg 10/22/22 21:00 10/22/22 20:37 Fluphenazine Hcl 5 Mg Tablet PO 5 mg BEDTIME YULY Administration Metformin HCl 500 mg 10/22/22 21:00 10/22/22 20:31 Metformin Hcl 500 Mg Tablet PO 500 mg BID YULY Administration Montelukast Sodium 10 mg 10/22/22 21:00 10/22/22 20:37 Montelukast Sodium 10 Mg Tablet PO 10 mg BEDTIME YULY Administration Prazosin HCl 4 mg 10/22/22 21:00 10/22/22 20:39 Prazosin Hcl 1 Mg Capsule PO 4 mg BEDTIME YULY Administration Protocol Trazodone HCl 150 mg 10/22/22 21:00 10/22/22 20:37 Trazodone Hcl 50 Mg Tablet PO 150 mg BEDTIME YULY Administration Discontinued Medications Generic Name Dose Route Start Last Admin Trade Name Elmer PRN Reason Stop Dose Admin Lorazepam 2 mg 10/22/22 19:24 10/22/22 19:32 Lorazepam 1 Mg Tablet PO 10/22/22 19:25 2 mg ONCE ONE Administration Nicotine Polacrilex 2 mg 10/22/22 20:29 10/22/22 20:32 Nicotine Polacrilex 2 Mg Gum BUCCAL 10/22/22 20:30 2 mg ONCE ONE Administration Medical Decision Making Differential Diagnosis Differential Diagnoses: The differential diagnosis associated with the presentation includes Suicidal, psychosis, anxiety Admission/Observation Consideration of admission/observation: Escalation of care including admission/observation considered If crisis consult indicates need for admission, patient will be admitted temp 5 Consult Healthcare Provider Management of the patient was discussed with: Behavioral Health Provider Lab Data MDM Lab Attestation statement: I reviewed the patient's lab results. 10/22/22 19:29 10/22/22 19:29 Labs: Lab Results 10/22/22 10/22/22 10/22/22 Range/Units 19:21 19:29 19:29 WBC 7.8 (4.8-10.8) X10*3/uL RBC 3.90 L (4.20-5.50) X10*6/uL Hgb 10.4 L (12.0-16.0) g/dl Hct 32.7 L (37.0-47.0) % MCV 83.8 (80.0-98.0) fL MCH 26.7 L (27.0-33.0) pg MCHC 31.8 (31.0-35.0) g/dl RDW 14.8 (11.0-16.0) % Plt Count 298 (160-400) X10*3/uL MPV 9.7 (9.4-12.3) fL Immature Gran % (Auto) 0.3 (0.0-0.4) % Neut % (Auto) 59.3 (45-73) % Lymph % (Auto) 26.2 (20-40) % [place] % (Auto) 7.9 (2-11) % Eos % (Auto) 5.8 H (0-4) % Baso % (Auto) 0.5 (0-2) % Lymph # (Auto) 2.0 (1.2-4.9) X10*3/uL [place] # (Auto) 0.6 (0.1-1.2) X10*3/uL Eos # (Auto) 0.5 H (0.0-0.4) X10*3/uL Baso # (Auto) 0.0 (0.0-0.2) X10*3/uL Abs Immat Gran (auto) 0.02 (0.00-0.03) X10*3/uL Absolute Neuts (auto) 4.6 (2.0-8.3) x10*3/uL Absolute Nucleated RBC 0.000 (0.0-0.012) X10*3/uL Nucleated RBC % (auto) 0.0 (0.0-0.2) /100WBC Sodium 140 (135-145) mmol/L Potassium 3.6 (3.3-5.1) mmol/L Chloride 107 (96-108) mmol/L Carbon Dioxide 23 (22-29) mmol/L Anion Gap 14 (12-20) BUN 10 (9-16) mg/dL Creatinine 0.75 (0.5-1.4) mg/dL Estim Creat Clear Calc 116.1 Estimated GFR > 60 Random Glucose 102 (60-115) mg/dL Calcium 8.9 (8.4-10.2) mg/dL Total Bilirubin 0.2 (0.0-1.0) mg/dL AST 20 (5-31) U/L ALT 22 (0-31) U/L Alkaline Phosphatase 116 (39-117) U/L Total Protein 7.1 (6.5-8.0) g/dL Albumin 4.5 (3.5-5.0) g/dL Urine Color Urine Appearance Urine pH (5.0-9.0) Ur Specific [place] (1.005-1.025) Urine Protein (Neg-Trace) mg/dL Urine Glucose (UA) (Negative) mg/dL Urine Ketones (Negative) mg/dL Urine Blood (Negative) Urine Nitrite (Negative) Ur Leukocyte Esterase (Negative) Urine Test (NEGATIVE) Salicylates < 5.0 L (15-30) mg/dL Urine Opiates Screen (Not Detect) Urine Fentanyl Screen (Not Detect) Acetaminophen < 17 (<30) mcg/mL Ur Barbiturates Screen (Not Detect) Ur Phencyclidine Scrn (Not Detect) Ur Amphetamines Screen (Not Detect) U Benzodiazepines Scrn (Not Detect) Urine Cocaine Screen (Not Detect) U Marijuana (THC) Screen (Not Detect) Influenza Type A (PCR) NEGATIVE (Negative) Influenza Type B (PCR) NEGATIVE (Negative) RSV RNA Qual (PCR) NEGATIVE (Negative) SARS-CoV-2 RNA (RT-PCR) NEGATIVE (Negative) 10/22/22 10/22/22 10/22/22 Range/Units 19:32 19:32 19:32 WBC (4.8-10.8) X10*3/uL RBC (4.20-5.50) X10*6/uL Hgb (12.0-16.0) g/dl Hct (37.0-47.0) % MCV (80.0-98.0) fL MCH (27.0-33.0) pg MCHC (31.0-35.0) g/dl RDW (11.0-16.0) % Plt Count (160-400) X10*3/uL MPV (9.4-12.3) fL Immature Gran % (Auto) (0.0-0.4) % Neut % (Auto) (45-73) % Lymph % (Auto) (20-40) % [place] % (Auto) (2-11) % Eos % (Auto) (0-4) % Baso % (Auto) (0-2) % Lymph # (Auto) (1.2-4.9) X10*3/uL [place] # (Auto) (0.1-1.2) X10*3/uL Eos # (Auto) (0.0-0.4) X10*3/uL Baso # (Auto) (0.0-0.2) X10*3/uL Abs Immat Gran (auto) (0.00-0.03) X10*3/uL Absolute Neuts (auto) (2.0-8.3) x10*3/uL Absolute Nucleated RBC (0.0-0.012) X10*3/uL Nucleated RBC % (auto) (0.0-0.2) /100WBC Sodium (135-145) mmol/L Potassium (3.3-5.1) mmol/L Chloride (96-108) mmol/L Carbon Dioxide (22-29) mmol/L Anion Gap (12-20) BUN (9-16) mg/dL Creatinine (0.5-1.4) mg/dL Estim Creat Clear Calc Estimated GFR Random Glucose (60-115) mg/dL Calcium (8.4-10.2) mg/dL Total Bilirubin (0.0-1.0) mg/dL AST (5-31) U/L ALT (0-31) U/L Alkaline Phosphatase (39-117) U/L Total Protein (6.5-8.0) g/dL Albumin (3.5-5.0) g/dL Urine Color Yellow Urine Appearance Clear Urine pH 6.5 (5.0-9.0) Ur Specific [place] <= 1.005 (1.005-1.025) Urine Protein Negative (Neg-Trace) mg/dL Urine Glucose (UA) Negative (Negative) mg/dL Urine Ketones Negative (Negative) mg/dL Urine Blood Negative (Negative) Urine Nitrite Negative (Negative) Ur Leukocyte Esterase Negative (Negative) Urine Test NEGATIVE (NEGATIVE) Salicylates (15-30) mg/dL Urine Opiates Screen Not Detected (Not Detect) Urine Fentanyl Screen Not Detected (Not Detect) Acetaminophen (<30) mcg/mL Ur Barbiturates Screen Not Detected (Not Detect) Ur Phencyclidine Scrn Not Detected (Not Detect) Ur Amphetamines Screen Not Detected (Not Detect) U Benzodiazepines Scrn Not Detected (Not Detect) Urine Cocaine Screen Not Detected (Not Detect) U Marijuana (THC) Screen Not Detected (Not Detect) Influenza Type A (PCR) (Negative) Influenza Type B (PCR) (Negative) RSV RNA Qual (PCR) (Negative) SARS-CoV-2 RNA (RT-PCR) (Negative) External Record Review External record reviewed: Outpatient record and Prior outpatient labs Discharge Plan Discharge Clinical Impression: Suicidal ideation, Acute anxiety Patient Disposition: Home, Self-Care Instructions: Anxiety (ED) Additional Instructions: Follow-up with outpatient psychiatry. Thank you for choosing this emergency department for evaluation. Please follow-up with primary care physician as needed. Return to the emergency department for any new, concerning, or worsening symptoms. Prescriptions: No Action metformin 500 mg tablet 1 tab PO BID atorvastatin 10 mg tablet 10 mg PO DAILY montelukast 10 mg tablet 1 tab PO BEDTIME chlorpromazine 25 mg tablet 3 tab PO DAILY@1700 nicotine (polacrilex) 4 mg gum 1 ea PO Q2H PRN (Reason: Smoking Cessation) lisinopril 5 mg tablet 1 tab PO DAILY fluoxetine 20 mg capsule 60 mg PO DAILY prazosin 1 mg Capsule 4 mg PO BEDTIME 30 Days Qty: 120 0RF Protocol: Hold for SBP< HOLD for SBP < : 90 fluphenazine HCl 5 mg tablet 1 tab PO BEDTIME sennosides [senna] 8.6 mg Tablet 8.6 mg PO BEDTIME PRN (Reason: Constipation) trazodone 150 mg tablet 1 tab PO BEDTIME
[2022-10-22] MEDS: LORazepam 1 MG TABLET 2 MG PO (19:32)
[2022-10-22 19:39] LABS: Basophils Percent Auto 0.5 % (0-2); Eosinophils Absolute Auto 0.5 X10*3/uL (0.0-0.4); Eosinophils Percent Auto 5.8 % (0-4); Hematocrit 32.7 % (37.0-47.0); Hemoglobin 10.4 g/dl (12.0-16.0); Imm Gran Abs Auto 0.02 X10*3/uL (0.00-0.03); Imm Gran Pct Auto 0.3 % (0.0-0.4); Lymphocytes Percent Auto 26.2 % (20-40); MANUAL DIFF FLAG NO; Mean Corpuscular HGB Conc 31.8 g/dl (31.0-35.0); Mean Corpuscular Hemoglobin 26.7 pg (27.0-33.0); Mean Corpuscular Volume 83.8 fL (80.0-98.0); Mean Platelet Volume 9.7 fL (9.4-12.3); Monocytes Absolute Auto 0.6 X10*3/uL (0.1-1.2); Monocytes Percent Auto 7.9 % (2-11); Neutrophils Absolute Auto 4.6 x10*3/uL (2.0-8.3); Neutrophils Percent Auto 59.3 % (45-73); Platelet Count 298 X10*3/uL (160-400); Red Cell Distribution Width 14.8 % (11.0-16.0); White Blood Count 7.8 X10*3/uL (4.8-10.8)
[2022-10-22 19:42] LABS: Appearance Urine Clear; Color Urine Yellow; Glucose Urine UA Negative (Negative); Leukocyte Esterase Urine Negative (Negative); Nitrite Urine Negative (Negative); PH 6.5 (5.0-9.0); Specific Gravity - Urine <= 1.005 (1.005-1.025); Urine Blood Negative (Negative); Urine Ketones Negative (Negative); Urine Protein Negative (Neg-Trace)
[2022-10-22 19:43] LABS: UPreg QC Valid YES; Urine Pregnancy NEGATIVE (NEGATIVE)
[2022-10-22 19:56] LABS: Acetaminophen LAB < 17 mcg/mL (<30); Alanine Aminotransferase 22 U/L (0-31); Albumin Level 4.5 g/dL (3.5-5.0); Alkaline Phosphatase 116 U/L (39-117); Anion Gap 14 (12-20); Aspartate Amino Transferase 20 U/L (5-31); Bilirubin Total 0.2 mg/dL (0.0-1.0); Blood Urea Nitrogen 10 mg/dL (9-16); Calcium 8.9 mg/dL (8.4-10.2); Carbon Dioxide 23 mmol/L (22-29); Chloride 107 mmol/L (96-108); Creatinine Clr Calc Pharmacy 116.1; Estimated Glomerular Filt Rate > 60; Glucose Random 102 mg/dL (60-115); Potassium 3.6 mmol/L (3.3-5.1); Salicylate < 5.0 mg/dL (15-30); Sodium 140 mmol/L (135-145); Total Protein 7.1 g/dL (6.5-8.0)
[2022-10-22 20:15] LABS: Influenza A PCR NEGATIVE (Negative); Influenza B PCR NEGATIVE (Negative); Resp Syncy Virus RNA Qual PCR NEGATIVE (Negative); SARS COV2 PCR INHOUSE NEGATIVE (Negative)
[2022-10-22] MEDS: chlorproMAZINE HCl 25 MG TABLET 75 MG PO (20:31)
[2022-10-22] MEDS: metFORMIN HCl 500 MG TABLET PO (20:31)
[2022-10-22] MEDS: Nicotine Polacrilex 2 MG GUM BUCCAL (20:32)
[2022-10-22] MEDS: traZODone HCL 50 MG TABLET 150 MG PO (20:37)
[2022-10-22] MEDS: Montelukast Sodium 10 MG TABLET PO (20:37)
[2022-10-22] MEDS: fluPHENAZine HCl 5 MG TABLET PO (20:37)
[2022-10-22] MEDS: Prazosin HCL 1 MG CAPSULE 4 MG PO (20:39)
[2022-10-22 21:00] LABS: Amphetamine Screen Urine Not Detected (Not Detect); Barbiturates, Urine Not Detected (Not Detect); Benzodiazepines Screen Urine Not Detected (Not Detect); Cannabinoid Screen Urine Not Detected (Not Detect); Cocaine Screen Urine Not Detected (Not Detect); Fentanyl, urine Not Detected (Not Detect); Opiate Screen Urine Not Detected (Not Detect); Phencyclidine Screen Urine Not Detected (Not Detect)
--- NOTE | 2022-10-23 06:04 | PC.NURSE ---
Patient slept through the night, no distress observed/reported, behavior at the time of arrival dysregulated but quickly able to control remained non concerning, medication compliant, complaint with medication, VSS, awaiting care team evaluation in the morning, will continue to monitor.
--- NOTE | 2022-10-23 07:40 | PC.NURSE ---
THIS RN ASSUMED CARE OF THIS PT AT 0700. PT IN ROOM, SCHUYLER FROM CARE TEAM AT BEDSIDE.
[2022-10-23] MEDS: Atorvastatin Calcium 10 MG TABLET PO (09:34)
[2022-10-23] MEDS: metFORMIN HCl 500 MG TABLET PO (09:34)
[2022-10-23] MEDS: FLUoxetine HCl 20 MG CAPSULE 60 MG PO (09:34)
[2022-10-23] MEDS: lisinopriL 5 MG TABLET PO (09:34)
[2022-10-23 09:36] VITALS: BP 117/83; PULSE 107; RESP 17; TEMP 36.8
--- NOTE | 2022-10-23 17:04 | MHC.CARE ---
CARE team contacted pt to check in and see how she is doing. Pt reported that she is struggling but holding it together at this time and is spending time with her favorite senior living staff. Earlier today she went to her friend's house, which helped distract her for a little bit. She has been working with clinician Leah and [facility] this afternoon to possibly go to respite for a few days for extra support, as she doesn't want to have to go to the hospital. Pt ended call when she said that Leah was calling her on her personal phone.
== END 2022-10-23 11:04 | disposition home or self-care (01) ==
PROVIDERS: Nurse Practitioner Family; Emergency Provider Internal Medicine; PCP Nurse Practitioner Family
DX: F33.1 Major depressive disorder, recurrent, moderate (principal); R45.851 Suicidal ideations; R44.0 Auditory hallucinations; F41.1 Generalized anxiety disorder; F43.0 Acute stress reaction; F17.210 Nicotine dependence, cigarettes, uncomplicated; Z20.828 Contact with and (suspected) exposure to other viral communicable diseases; Z20.822 Contact with and (suspected) exposure to COVID-19; Z71.6 Tobacco abuse counseling; Z79.899 Other long term (current) drug therapy
CPT/HCPCS: 0241U; 36415; 80053; 80143; 80179; 80307; 81003; 81025; 85025; 99284

== ENCOUNTER 2022-11-02 17:43 | Emergency (ER) | payer MEDICARE, MEDICAID, SELFPAY ==
[2022-11-02 17:49] VITALS: BP 130/70; BP 140/104; PULSE 102; PULSE 104; RESP 18; TEMP 36.9; O2SAT 96; O2SAT 97; BMI 37.8
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
[2022-11-02 18:38] LABS: Appearance Urine Clear; Color Urine Yellow; Glucose Urine UA Negative (Negative); Leukocyte Esterase Urine Small (1+) (Negative); Nitrite Urine Negative (Negative); Specific Gravity - Urine <= 1.005 (1.005-1.025); UMIC TRIGGER UACC YES; Urine Blood Negative (Negative); Urine Ketones Negative (Negative); Urine Protein Negative (Neg-Trace)
[2022-11-02 18:40] LABS: UPreg QC Valid YES; Urine Pregnancy NEGATIVE (NEGATIVE)
[2022-11-02 18:47] LABS: Bacteria Urine None Seen (None Seen); Hyaline Casts Urine 0-2 /LPF (0-2); RBC Urine 0-2 /HPF (0-2); Squamous Epithelial Cell Urine 0-2 /HPF (0-2); UACC Culture Trigger YES
[2022-11-02 18:50] LABS: Amphetamine Screen Urine Not Detected (Not Detect); Barbiturates, Urine Not Detected (Not Detect); Benzodiazepines Screen Urine Not Detected (Not Detect); Cannabinoid Screen Urine Not Detected (Not Detect); Cocaine Screen Urine Not Detected (Not Detect); Fentanyl, urine POSITIVE (Not Detect); Opiate Screen Urine Not Detected (Not Detect); Phencyclidine Screen Urine Not Detected (Not Detect)
[2022-11-02 19:18] LABS: Influenza A PCR NEGATIVE (Negative); Influenza B PCR NEGATIVE (Negative); Resp Syncy Virus RNA Qual PCR NEGATIVE (Negative); SARS COV2 PCR INHOUSE POSITIVE (Negative)
--- NOTE | 2022-11-02 20:20 | ED_ITS ---
HPI - Psych General Chief Complaint: Psychiatric Symptoms Stated Complaint: section 12 Crisis Time Seen by Provider: 11/02/22 19:19 Source: patient and EMS Mode of arrival: EMS History of Present Illness HPI Narrative: 46-year-old female with a past medical history of borderline personality disorder, depression, diabetes, GERD, HLD, mood disorder, PTSD, prior suicide attempts, presenting [facility] ED via [facility] for Auditory h allucinations/hearing voices and SI with plan to cut her wrists. On this production underwriter's evaluation patient reports symptomatic improvement, states spoken with CARE team and denies suicidal ideations at present. denies illicit drug or ETOH use. Denies HI. Denies CP/ SOB, abdominal pain, nausea/vomiting MD complaint: suicidal ideation and feels depressed Related Data Home Medications Medication Instructions Recorded Confirmed atorvastatin 10 mg tablet 10 mg PO DAILY 05/29/21 10/22/22 metformin 500 mg tablet 1 tab PO BID 05/29/21 10/22/22 montelukast 10 mg tablet 1 tab PO BEDTIME 05/29/21 10/22/22 fluphenazine HCl 5 mg tablet 1 tab PO BEDTIME 03/19/22 10/22/22 chlorpromazine 25 mg tablet 3 tab PO DAILY@1700 06/17/22 10/22/22 fluoxetine 20 mg capsule 60 mg PO DAILY 07/30/22 10/22/22 lisinopril 5 mg tablet 1 tab PO DAILY 07/30/22 10/22/22 nicotine (polacrilex) 4 mg gum 1 ea PO Q2H PRN Smoking Cessation 07/30/22 10/22/22 sennosides 8.6 mg tablet (senna) 8.6 mg PO BEDTIME PRN Constipation 09/11/22 10/22/22 trazodone 150 mg tablet 1 tab PO BEDTIME 09/23/22 10/22/22 Previous Rx's Medication Instructions Recorded prazosin 1 mg capsule 4 mg PO BEDTIME 30 days #120 caps 10/18/21 cefuroxime axetil 250 mg tablet 250 mg PO BID 7 days #14 tabs 11/02/22 Allergies Allergy/AdvReac Type Severity Reaction Status Date / Time Fish Containing Products Allergy Severe ANAPHYLAXIS Verified 08/29/22 12:26 codeine [Codeine] Allergy Intermediate RASH Verified 08/29/22 12:26 Penicillins Allergy Intermediate RASH Verified 08/29/22 12:26 prednisone [Prednisone] Allergy Intermediate RASH Verified 08/29/22 12:26 Sulfa (Sulfonamide Allergy Intermediate RASH Verified 08/29/22 12:26 Antibiotics) [Sulfa (Sulfonamides)] azithromycin [AZITHROMYCIN] AdvReac Severe RASH Verified 08/29/22 12:26 ziprasidone [From Geodon] AdvReac Intermediate dysuria, Verified 08/29/22 12:26 rash Review of Systems Review of Systems: Constitutional: No Fever, No Chills, No Fatigue, No Malaise ENT/Mouth: No Ear Pain, No Nasal Congestion, No sore throat, No Rhinorrhea, No Swallowing Difficulty Eyes: No Eye Pain, No Swelling, No Vision Changes Cardiovascular: No Chest Pain, No SOB, No Edema, No Palpitations Respiratory: No Cough, No Dyspnea Gastrointestinal: No Nausea, No Vomiting, No Diarrhea, No Constipation, No Abdominal pain Musculoskeletal: No joint pain, No Myalgias Skin: No Skin Lesions, No rash Neuro: No Weakness, No Numbness, No Paresthesias, No Loss of Consciousness, No Dizziness, No Headache Psych: No Anxiety/Panic, No Depression, + SI, No HI, +AH, No VH, No Social Issues Yes all other systems are reviewed and are negative Constitutional: Constitutional: Reports as per [facility] Past Medical History Attestation statement: The following information was validated with the patient. Medical History Acetaminophen overdose Borderline personality disorder Bronchitis Depression Diabetes type 2, controlled Full body hives GERD (gastroesophageal reflux disease) History of attempted suicide History of non-suicidal self-harm Hyperlipidemia Hypomagnesemia Major depression MDD (major depressive disorder), recurrent episode, severe Mood disorder Overdose PTSD (post-traumatic stress disorder) Suicide attempt Suicide attempt by acetaminophen overdose Social History Social History Household Members: Other Household Members Other:: [facility] Housing: Other Housing Other:: [facility] Do you presently have visiting nurse or other home services: No Unable to assess alcohol history related to: Unknown Alcohol intake: former Patient Tobacco Use Status: Current everyday Tobacco user Tobacco use type: Cigarette Cigarette Packs Per Day: 1 Cigarettes Per Day: 16 Years Smoked: 20 e-Cigarette/Vaping Use: Never Used Substance Use Type: Marijuana Advance Directives: No Advance Directives Information Provided: No Patient : No service: No Current occupational status: unemployed and disabled Sexual orientation: Don't Know Physical Exam Vital Signs: Vital Signs: Last Vital Signs Temp 98.5 F 11/02/22 20:38 Pulse 89 11/02/22 20:38 Resp 20 11/02/22 20:38 BP 166/92 H 11/02/22 20:38 Pulse Ox 95 11/02/22 20:38 O2 Del Method 11/02/22 20:38 BMI result Body Mass Index 37.8 Const: General: cooperative, healthy appearing, comfortable, no acute distress, alert and awake Orientation/consciousness: patient oriented x3 Limitations: no limitations HEENT: Head: Yes normal to inspection and Yes atraumatic Ears: hearing grossly normal bilaterally General nose exam: Normal external nose present Face and sinus: Yes normal facial exam Eyes: General: appearance normal, both eyes and all related structures EOM: EOMs intact bilaterally Neck: Neck: Yes normal visual inspection and Yes no meningeal signs Resp: Effort & Inspection: normal respiratory effort and no respiratory distress Auscultation: clear to auscultation bilaterally, no crackles and no wheezes Cardio: Rate: regular rate Heart sounds: S1 normal heart sound present and S2 normal heart sound present GI: Inspection: Yes normal to inspection Palpation (GI): Soft to palpation and nontender Skin: Other: + Superficial cuts to left wrist without active bleeding Rashes: no rashes Neuro: General: patient oriented x3, gait normal, tone normal, moves all extremities, no meningeal signs and CN's II-XI intact bilaterally Gait exam (Neuro): Normal gait present Extrem: General: Yes normal to inspection Course Course Course Narrative: patient was cleared by CARE team for discharge home -UA infected > patient given 1st dose of Ceftin in the ED. Tox screen positive for fentanyl - COVID-19 positive, CARE team aware and will notify [facility] Medications Administered Discontinued Medications Generic Name Dose Route Start Last Admin Trade Name Freq PRN Reason Stop Dose Admin Cefuroxime Axetil 250 mg 11/02/22 20:29 11/02/22 20:37 Cefuroxime Axetil 250 Mg Tablet PO 11/02/22 20:30 250 mg ONCE ONE Administration Medical Decision Making Medical Decision Making [facility] Narrative: 46-year-old female with a past medical history of borderline personality disor pritesh, depression, diabetes, GERD, HLD, mood disorder, PTSD, prior suicide attempts, presenting to the ED via EMS from [facility] for Auditory hallucinations/hearing voices and SI with plan to cut her wrists. on exam initially hypertensive and tachycardic likely from pacing, NAD, nontoxic appearing on this production underwriter's evaluation patient denies SI/HI present. Feels safe and ready for discharge back to [facility] COVID-19/influenza/ RSV, UA, & drug screen ordered via protocol Please refer to course for remaining clinical decision making, interpretation of labs/imaging results, and discussions with consultants and/or family members. Differential Diagnosis Differential Diagnoses: The differential diagnosis associated with the present ation includes as above Consult Healthcare Provider Management of the patient was discussed with: Behavioral Health Provider Lab Data MDM Lab Attestation statement: I reviewed the patient's lab results. Labs: Lab Results 11/02/22 11/02/22 11/02/22 Range/Units 18:20 18:21 18:21 Urine Color Yellow Urine Appearance Clear Urine pH 6.0 (5.0-9.0) Ur Specific [place] <= 1.005 (1.005-1.025) Urine Protein Negative (Neg-Trace) mg/dL Urine Glucose (UA) Negative (Negative) mg/dL Urine Ketones Negative (Negative) mg/dL Urine Blood Negative (Negative) Urine Nitrite Negative (Negative) Ur Leukocyte Esterase Small (1+) H (Negative) Urine RBC 0-2 (0-2) /HPF Urine WBC 6-10 H (0-5) /HPF Ur Squamous Epith Cells 0-2 (0-2) /HPF Urine Bacteria None Seen (None Seen) Hyaline Casts 0-2 (0-2) /LPF Urine Test NEGATIVE (NEGATIVE) Urine Opiates Screen (Not Detect) Urine Fentanyl Screen (Not Detect) Ur Barbiturates Screen (Not Detect) Ur Phencyclidine Scrn (Not Detect) Ur Amphetamines Screen (Not Detect) U Benzodiazepines Scrn (Not Detect) Urine Cocaine Screen (Not Detect) U Marijuana (THC) Screen (Not Detect) Influenza Type A (PCR) NEGATIVE (Negative) Influenza Type B (PCR) NEGATIVE (Negative) RSV RNA Qual (PCR) NEGATIVE (Negative) SARS-CoV-2 RNA (RT-PCR) POSITIVE A (Negative) 11/02/22 Range/Units 18:21 Urine Color Urine Appearance Urine pH (5.0-9.0) Ur Specific [place] (1.005-1.025) Urine Protein (Neg-Trace) mg/dL Urine Glucose (UA) (Negative) mg/dL Urine Ketones (Negative) mg/dL Urine Blood (Negative) Urine Nitrite (Negative) Ur Leukocyte Esterase (Negative) Urine RBC (0-2) /HPF Urine WBC (0-5) /HPF Ur Squamous Epith Cells (0-2) /HPF Urine Bacteria (None Seen) Hyaline Casts (0-2) /LPF Urine Test (NEGATIVE) Urine Opiates Screen Not Detected (Not Detect) Urine Fentanyl Screen POSITIVE H (Not Detect) Ur Barbiturates Screen Not Detected (Not Detect) Ur Phencyclidine Scrn Not Detected (Not Detect) Ur Amphetamines Screen Not Detected (Not Detect) U Benzodiazepines Scrn Not Detected (Not Detect) Urine Cocaine Screen Not Detected (Not Detect) U Marijuana (THC) Screen Not Detected (Not Detect) Influenza Type A (PCR) (Negative) Influenza Type B (PCR) (Negative) RSV RNA Qual (PCR) (Negative) SARS-CoV-2 RNA (RT-PCR) (Negative) Independent Historian Clinical information obtained from an independent historian. History obtained from or confirmed by: EMS External Record Review External record reviewed: Office record and Prior outpatient labs prior ED record Prescription Management I considered prescription management with: Antibiotic Social Determinants Patient?s care significantly limited by Social Determinants of Health including: Problems related to primary support group and Other Social Determinant of Health Discharge Plan Discharge Clinical Impression: Suicidal ideation, UTI (urinary tract infection), COVID-19 Patient Disposition: Home, Self-Care Instructions: Urinary Tract Infection in Women (ED), Suicide Prevention (ED), COVID-19 (Coronavirus Disease 2019) (ED) Additional Instructions: you have a urinary tract infection Calmoseptine is an antibiotic please take as prescribed. Additionally tested positive for COVID-19 if you have thoughts of hurting herself or others return to the ED continue home prescribed medications. Follow up with her therapist and doctors At this time you will be okay for discharge. Please self isolate for 5-10 days. Do not expose yourself to others. You may not go to work or school. Please continue to follow cold instructions and wash your hands frequently. You may take Tylenol / Motrin as directed on the bottle for pain or fever. If you have constant or persistent shortness of breath, fever unresolved with medications, chest pain, or your unable to eat or drink please return to the ED CDC Guidelines for home isolation: - Stay away from others - WEAR A MASK if you are sick AND STAY HOME - Cover your mouth and nose with a tissue when you cough or sneeze. Dispose of tissues in a lined trash can and wash your hands immediately with soap and water for at least 20 seconds. If soap and water are not available, clean hands with alcohol-based hand land title examiner that contains at least 60% alcohol. - Clean your hands often with soap and water for at least 20 seconds - Avoid touching your eyes, nose and mouth with unwashed hands - Do not share dishes, drinking glasses, cups, eating utensils, towels, or bedding with other people in your home. After using these items, wash them thoroughly with soap and water or put in the computer graphics illustrator. - Clean high-touch surfaces in your isolation area ( sick room and bathroom) every day; let a caregiver clean and disinfect high-touch surfaces in other areas of the home. Clean the area or item with soap and water or another detergent if it is dirty. Then, use a household disinfectant. - Limit contact with pets and animals: If you must care for a pet, wash your hands before and after interacting with them) Prescriptions: New cefuroxime axetil 250 mg tablet 250 mg PO BID 7 Days Qty: 14 0RF No Action metformin 500 mg tablet 1 tab PO BID atorvastatin 10 mg tablet 10 mg PO DAILY montelukast 10 mg tablet 1 tab PO BEDTIME chlorpromazine 25 mg tablet 3 tab PO DAILY@1700 nicotine (polacrilex) 4 mg gum 1 ea PO Q2H PRN (Reason: Smoking Cessation) lisinopril 5 mg tablet 1 tab PO DAILY fluoxetine 20 mg capsule 60 mg PO DAILY prazosin 1 mg Capsule 4 mg PO BEDTIME 30 Days Qty: 120 0RF Protocol: Hold for SBP< HOLD for SBP < : 90 fluphenazine HCl 5 mg tablet 1 tab PO BEDTIME sennosides [senna] 8.6 mg Tablet 8.6 mg PO BEDTIME PRN (Reason: Constipation) trazodone 150 mg tablet 1 tab PO BEDTIME Referrals: [facility] [Provider Group] Maribel Marquez NP [Primary Care Provider] - Interventions: [place]-Suicide Risk Severity Scale Last Done: 11/02/22 17:58 ED Discharge Assessment Last Done: 11/02/22 20:38
[2022-11-02 20:38] VITALS: BP 166/92; PULSE 89; RESP 20; TEMP 36.9; O2SAT 95
== END 2022-11-02 23:44 | disposition home or self-care (01) ==
PROVIDERS: Emergency Provider Emergency Medicine; PCP Nurse Practitioner Family
DX: F33.1 Major depressive disorder, recurrent, moderate (principal); U07.1 COVID-19; R45.851 Suicidal ideations; N39.0 Urinary tract infection, site not specified; F17.210 Nicotine dependence, cigarettes, uncomplicated; Z71.6 Tobacco abuse counseling; Z79.899 Other long term (current) drug therapy
CPT/HCPCS: 0241U; 80307; 81001; 81025; 87086; 99284; 99285

== ENCOUNTER 2022-11-07 18:57 | Emergency (ER) | payer MEDICARE, MEDICAID, SELFPAY ==
[2022-11-07 19:12] VITALS: BP 168/96; PULSE 95; RESP 16; TEMP 36.9; O2SAT 97; BMI 37.9
[2022-11-07 19:56] LABS: Amphetamine Screen Urine Not Detected (Not Detect); Barbiturates, Urine Not Detected (Not Detect); Benzodiazepines Screen Urine Not Detected (Not Detect); Cannabinoid Screen Urine Not Detected (Not Detect); Cocaine Screen Urine Not Detected (Not Detect); Fentanyl, urine POSITIVE (Not Detect); Opiate Screen Urine Not Detected (Not Detect); Phencyclidine Screen Urine Not Detected (Not Detect)
[2022-11-07 19:59] LABS: COVID-19 Test Negative (Negative); IDNOW Serial# 9DB6401D
[2022-11-07 20:10] LABS: MANUAL DIFF FLAG NO
[2022-11-07 20:11] LABS: Basophils Absolute Auto 0.1 X10*3/uL (0.0-0.2); Basophils Percent Auto 0.6 % (0-2); Eosinophils Absolute Auto 0.5 X10*3/uL (0.0-0.4); Eosinophils Percent Auto 5.7 % (0-4); Hematocrit 34.6 % (37.0-47.0); Hemoglobin 10.6 g/dl (12.0-16.0); Imm Gran Abs Auto 0.04 X10*3/uL (0.00-0.03); Imm Gran Pct Auto 0.4 % (0.0-0.4); Lymphocytes Absolute Auto 1.8 X10*3/uL (1.2-4.9); Lymphocytes Percent Auto 20.5 % (20-40); Mean Corpuscular HGB Conc 30.6 g/dl (31.0-35.0); Mean Corpuscular Hemoglobin 25.5 pg (27.0-33.0); Mean Corpuscular Volume 83.4 fL (80.0-98.0); Mean Platelet Volume 9.6 fL (9.4-12.3); Monocytes Absolute Auto 0.7 X10*3/uL (0.1-1.2); Monocytes Percent Auto 7.4 % (2-11); Neutrophils Absolute Auto 5.8 x10*3/uL (2.0-8.3); Neutrophils Percent Auto 65.4 % (45-73); Platelet Count 319 X10*3/uL (160-400); Red Blood Count 4.15 X10*6/uL (4.20-5.50); Red Cell Distribution Width 14.4 % (11.0-16.0); White Blood Count 8.9 X10*3/uL (4.8-10.8)
[2022-11-07 20:31] LABS: Acetaminophen LAB < 17 mcg/mL (<30); Alanine Aminotransferase 11 U/L (0-31); Albumin Level 4.5 g/dL (3.5-5.0); Alkaline Phosphatase 117 U/L (39-117); Anion Gap 15 (12-20); Aspartate Amino Transferase 16 U/L (5-31); Bilirubin Total 0.2 mg/dL (0.0-1.0); Blood Urea Nitrogen 8 mg/dL (9-16); Calcium 9.3 mg/dL (8.4-10.2); Carbon Dioxide 24 mmol/L (22-29); Chloride 105 mmol/L (96-108); Creatinine Clr Calc Pharmacy 112.2; Estimated Glomerular Filt Rate > 60; Glucose Random 111 mg/dL (60-115); Potassium 4.1 mmol/L (3.3-5.1); Salicylate < 5.0 mg/dL (15-30); Sodium 140 mmol/L (135-145); Total Protein 7.1 g/dL (6.5-8.0)
--- NOTE | 2022-11-07 21:25 | ED.PSYCH ---
HPI - Psych General Chief Complaint: Psychiatric Symptoms Stated Complaint: SI Time Seen by Provider: 11/07/22 19:13 Source: patient Mode of arrival: ambulatory Limitations: no limitations History of Present Illness HPI Narrative: Patient comes to the emergency room complaining of suicidal ideation, no specific plans, no homicidal ideation. No physical symptoms. Related Data Home Medications Medication Instructions Recorded Confirmed atorvastatin 10 mg tablet 10 mg PO DAILY 05/29/21 11/07/22 metformin 500 mg tablet 1 tab PO BID 05/29/21 11/07/22 montelukast 10 mg tablet 1 tab PO BEDTIME 05/29/21 11/07/22 fluphenazine HCl 5 mg tablet 1 tab PO BEDTIME 03/19/22 11/07/22 chlorpromazine 25 mg tablet 3 tab PO DAILY@1700 06/17/22 11/07/22 fluoxetine 20 mg capsule 60 mg PO DAILY 07/30/22 11/07/22 lisinopril 5 mg tablet 1 tab PO DAILY 07/30/22 11/07/22 nicotine (polacrilex) 4 mg gum 1 ea PO Q2H PRN Smoking Cessation 07/30/22 11/07/22 sennosides 8.6 mg tablet (senna) 8.6 mg PO BEDTIME PRN Constipation 09/11/22 11/07/22 trazodone 150 mg tablet 1 tab PO BEDTIME 09/23/22 11/07/22 Previous Rx's Medication Instructions Recorded prazosin 1 mg capsule 4 mg PO BEDTIME 30 days #120 caps 10/18/21 cefuroxime axetil 250 mg tablet 250 mg PO BID 7 days #14 tabs 11/02/22 Allergies Allergy/AdvReac Type Severity Reaction Status Date / Time Fish Containing Products Allergy Severe ANAPHYLAXIS Verified 08/29/22 12:26 codeine [Codeine] Allergy Intermediate RASH Verified 08/29/22 12:26 Penicillins Allergy Intermediate RASH Verified 08/29/22 12:26 prednisone [Prednisone] Allergy Intermediate RASH Verified 08/29/22 12:26 Sulfa (Sulfonamide Allergy Intermediate RASH Verified 08/29/22 12:26 Antibiotics) [Sulfa (Sulfonamides)] azithromycin [AZITHROMYCIN] AdvReac Severe RASH Verified 08/29/22 12:26 ziprasidone [From Geodon] AdvReac Intermediate dysuria, Verified 08/29/22 12:26 rash Review of Systems Review of Systems: Constitutional : No Weight loss, No Fever, No Chills, No Night Sweats, No Fatigue, No Malaise ENT/Mouth : No Hearing loss, No Ear Pain, No Nasal Congestion, No Sinus Pain, No Hoarseness, No sore throat, No Rhinorrhea, No Swallowing Difficulty Eyes: No Eye Pain, No Swelling, No Redness, No Foreign Body, No Discharge, No Vision Changes Cardiovascular : No Chest Pain, No SOB, No Dyspnea on Exertion, No Orthopnea, No Edema, No Palpitations Respiratory : No Cough, No Sputum, No Wheezing, No Smoke Exposure, No Dyspnea Gastrointestinal : No Nausea, No Vomiting, No Diarrhea, No Constipation, No abdominal Pain, No Hematochezia, No Melena Genitourinary : no irregular bleeding, No Dysuria, No Urinary Frequency, No Hematuria, No Urinary Incontinence, No Urgency, No Flank Pain, No Urinary Flow Changes, No Hesitancy Musculoskeletal : No joint pain, No Myalgias, No Joint Swelling Skin : No Skin Lesions, No rash Neuro : No Weakness, No Numbness, No Paresthesias, No Loss of Consciousness, No Dizziness, No Headache Psych : Complaining of feeling anxious, suicidal thoughts but no plan, not homicidal ideation Heme/Lymph: No Bruising, No Bleeding,No Lymphadenopathy Endocrine : No Polyuria, No Polydipsia, No Temperature Intolerance PMFSH Past Medical History Medical History Acetaminophen overdose Borderline personality disorder Bronchitis Depression Diabetes type 2, controlled Full body hives GERD (gastroesophageal reflux disease) History of attempted suicide History of non-suicidal self-harm Hyperlipidemia Hypomagnesemia Major depression MDD (major depressive disorder), recurrent episode, severe Mood disorder Overdose PTSD (post-traumatic stress disorder) Suicide attempt Suicide attempt by acetaminophen overdose Social History Social History Household Members: Other Household Members Other:: [facility] Housing: Other Housing Other:: [facility] Do you presently have visiting nurse or other home services: No Unable to assess alcohol history related to: Unknown Alcohol intake: former Patient Tobacco Use Status: Current everyday Tobacco user Tobacco use type: Cigarette Cigarette Packs Per Day: 1 Cigarettes Per Day: 16 Years Smoked: 20 e-Cigarette/Vaping Use: Never Used Substance Use Type: Marijuana Advance Directives: No Advance Directives Information Provided: Yes service: No Current occupational status: unemployed and disabled Sexual orientation: Don't Know Physical Exam Vital Signs: Vital Signs: Last Vital Signs Temp 98.5 F 11/07/22 19:12 Pulse 95 11/07/22 19:12 Resp 16 11/07/22 19:12 BP 168/96 H 11/07/22 19:12 Pulse Ox 97 11/07/22 19:12 O2 Del Method 11/07/22 19:12 BMI result Body Mass Index 37.9 Const: Other: Appearance: Alert. Oriented X3. No acute distress. Eyes: Pupils equal, round and reactive to light. ENT: Pharynx normal. Neck: Normal inspection. Neck supple. No lymph nodes noted. No crepitus CVS: Normal heart rate and rhythm. Pulses normal. Normal S1 and S2 Respiratory: No respiratory distress. Breath sounds normal. No Wheezing. No rales Abdomen: Soft and nontender. No rigidity. No distention. Skin: Skin warm and dry. Normal skin color. Normal skin turgor. Extremities: No lower extremity edema. No Lacerations. No Rash Neuro: Oriented X 3. No motor deficit. No sensory deficit. Moving all extremities. No slurred speech. CN 2 through 12 grossly intact Psych: calm, cooperative, normal affect Course Course Course Narrative: -patient comes with SI, no HI, anxiety, no plan -patient is well known to the care team, in a matter of couple of hours, patient will no longer be SI Medical Decision Making Medical Decision Making MDM Narrative: -patient states she feels better, no suicidal ideation, no homicidal ideation -care team. The patient to be discharged, patient agrees with plan, [facility] agrees with plan as well and we will send her back to [facility] Differential Diagnosis Differential Diagnoses: The differential diagnosis associated with the presentation includes (SI, anxiety) Lab Data [facility] Lab Attestation statement: I reviewed the patient's lab results. 11/07/22 20:05 11/07/22 20:05 Labs: Lab Results 11/07/22 11/07/22 11/07/22 Range/Units 19:35 19:35 20:05 WBC (4.8-10.8) X10*3/uL RBC (4.20-5.50) X10*6/uL Hgb (12.0-16.0) g/dl Hct (37.0-47.0) % MCV (80.0-98.0) fL MCH (27.0-33.0) pg MCHC (31.0-35.0) g/dl RDW (11.0-16.0) % Plt Count (160-400) X10*3/uL MPV (9.4-12.3) fL Immature Gran % (Auto) (0.0-0.4) % Neut % (Auto) (45-73) % Lymph % (Auto) (20-40) % [place] % (Auto) (2-11) % Eos % (Auto) (0-4) % Baso % (Auto) (0-2) % Lymph # (Auto) (1.2-4.9) X10*3/uL [place] # (Auto) (0.1-1.2) X10*3/uL Eos # (Auto) (0.0-0.4) X10*3/uL Baso # (Auto) (0.0-0.2) X10*3/uL Abs Immat Gran (auto) (0.00-0.03) X10*3/uL Absolute Neuts (auto) (2.0-8.3) x10*3/uL Absolute Nucleated RBC (0.0-0.012) X10*3/uL Nucleated RBC % (auto) (0.0-0.2) /100WBC Sodium 140 (135-145) mmol/L Potassium 4.1 (3.3-5.1) mmol/L Chloride 105 (96-108) mmol/L Carbon Dioxide 24 (22-29) mmol/L Anion Gap 15 (12-20) BUN 8 L (9-16) mg/dL Creatinine 0.79 (0.5-1.4) mg/dL Estim Creat Clear Calc 112.2 Estimated GFR > 60 Random Glucose 111 (60-115) mg/dL Calcium 9.3 (8.4-10.2) mg/dL Total Bilirubin 0.2 (0.0-1.0) mg/dL AST 16 (5-31) U/L ALT 11 (0-31) U/L Alkaline Phosphatase 117 (39-117) U/L Total Protein 7.1 (6.5-8.0) g/dL Albumin 4.5 (3.5-5.0) g/dL Salicylates < 5.0 L (15-30) mg/dL Urine Opiates Screen Not Detected (Not Detect) Urine Fentanyl Screen POSITIVE H (Not Detect) Acetaminophen < 17 (<30) mcg/mL Ur Barbiturates Screen Not Detected (Not Detect) Ur Phencyclidine Scrn Not Detected (Not Detect) Ur Amphetamines Screen Not Detected (Not Detect) U Benzodiazepines Scrn Not Detected (Not Detect) Urine Cocaine Screen Not Detected (Not Detect) U Marijuana (THC) Screen Not Detected (Not Detect) COVID-19 (NICK) Negative (Negative) COVID-19 Clin Com See Note 11/07/22 Range/Units 20:05 WBC 8.9 (4.8-10.8) X10*3/uL RBC 4.15 L (4.20-5.50) X10*6/uL Hgb 10.6 L (12.0-16.0) g/dl Hct 34.6 L (37.0-47.0) % MCV 83.4 (80.0-98.0) fL MCH 25.5 L (27.0-33.0) pg MCHC 30.6 L (31.0-35.0) g/dl RDW 14.4 (11.0-16.0) % Plt Count 319 (160-400) X10*3/uL MPV 9.6 (9.4-12.3) fL Immature Gran % (Auto) 0.4 (0.0-0.4) % Neut % (Auto) 65.4 (45-73) % Lymph % (Auto) 20.5 (20-40) % [place] % (Auto) 7.4 (2-11) % Eos % (Auto) 5.7 H (0-4) % Baso % (Auto) 0.6 (0-2) % Lymph # (Auto) 1.8 (1.2-4.9) X10*3/uL [place] # (Auto) 0.7 (0.1-1.2) X10*3/uL Eos # (Auto) 0.5 H (0.0-0.4) X10*3/uL Baso # (Auto) 0.1 (0.0-0.2) X10*3/uL Abs Immat Gran (auto) 0.04 H (0.00-0.03) X10*3/uL Absolute Neuts (auto) 5.8 (2.0-8.3) x10*3/uL Absolute Nucleated RBC 0.000 (0.0-0.012) X10*3/uL Nucleated RBC % (auto) 0.0 (0.0-0.2) /100WBC Sodium (135-145) mmol/L Potassium (3.3-5.1) mmol/L Chloride (96-108) mmol/L Carbon Dioxide (22-29) mmol/L Anion Gap (12-20) BUN (9-16) mg/dL Creatinine (0.5-1.4) mg/dL Estim Creat Clear Calc Estimated GFR Random Glucose (60-115) mg/dL Calcium (8.4-10.2) mg/dL Total Bilirubin (0.0-1.0) mg/dL AST (5-31) U/L ALT (0-31) U/L Alkaline Phosphatase (39-117) U/L Total Protein (6.5-8.0) g/dL Albumin (3.5-5.0) g/dL Salicylates (15-30) mg/dL Urine Opiates Screen (Not Detect) Urine Fentanyl Screen (Not Detect) Acetaminophen (<30) mcg/mL Ur Barbiturates Screen (Not Detect) Ur Phencyclidine Scrn (Not Detect) Ur Amphetamines Screen (Not Detect) U Benzodiazepines Scrn (Not Detect) Urine Cocaine Screen (Not Detect) U Marijuana (THC) Screen (Not Detect) COVID-19 (NICK) (Negative) COVID-19 Clin Com Discharge Plan Discharge Clinical Impression: Anxiety Patient Disposition: Home, Self-Care Instructions: Anxiety (ED) Additional Instructions: Please follow-up with your primary care physician tomorrow. If you have any worsening or new symptoms, please return to the emergency room or call 911 Prescriptions: No Action metformin 500 mg tablet 1 tab PO BID atorvastatin 10 mg tablet 10 mg PO DAILY montelukast 10 mg tablet 1 tab PO BEDTIME chlorpromazine 25 mg tablet 3 tab PO DAILY@1700 nicotine (polacrilex) 4 mg gum 1 ea PO Q2H PRN (Reason: Smoking Cessation) lisinopril 5 mg tablet 1 tab PO DAILY fluoxetine 20 mg capsule 60 mg PO DAILY cefuroxime axetil 250 mg tablet 250 mg PO BID 7 Days Qty: 14 0RF prazosin 1 mg Capsule 4 mg PO BEDTIME 30 Days Qty: 120 0RF Protocol: Hold for SBP< HOLD for SBP < : 90 fluphenazine HCl 5 mg tablet 1 tab PO BEDTIME sennosides [senna] 8.6 mg Tablet 8.6 mg PO BEDTIME PRN (Reason: Constipation) trazodone 150 mg tablet 1 tab PO BEDTIME
== END 2022-11-07 22:06 | disposition home or self-care (01) ==
PROVIDERS: Emergency Provider Emergency Medicine
DX: F41.1 Generalized anxiety disorder (principal); Z20.822 Contact with and (suspected) exposure to COVID-19; Z20.828 Contact with and (suspected) exposure to other viral communicable diseases; F17.210 Nicotine dependence, cigarettes, uncomplicated; Z71.6 Tobacco abuse counseling; Z79.899 Other long term (current) drug therapy
CPT/HCPCS: 36415; 80053; 80143; 80179; 80307; 85025; 87635; 99283

== ENCOUNTER 2022-11-20 17:24 | Emergency (ER) | payer MEDICARE, MEDICAID, SELFPAY ==
--- NOTE | 2022-11-20 17:29 | ED_ITS ---
HPI - Psych General Chief Complaint: Psychiatric Symptoms <TIMI Cruz Last Filed: 11/20/22 18:48> Stated Complaint: CRISIS, CUTTING L ARM/LEGS,NO BLEEDING PER EMS <TIMI Cruz Last Filed: 11/20/22 18:48> Time Seen by Provider: 11/20/22 17:50 <TIMI Cruz Last Filed: 11/20/22 18:48> Source: patient <TIMI Cruz Last Filed: 11/20/22 18:48> Mode of arrival: ambulatory <TIMI Cruz Last Filed: 11/20/22 18:48> Limitations: no limitations <TIMI Cruz Last Filed: 11/20/22 18:48> History of Present Illness HPI Narrative: ? 46-year-old female past medical history significant personality dep ression bipolar 2 with melancholic peatures, PTSD, DM, GERD presents via ambulance?for complaints of visual, auditory hallucinations, self-inflicted wounds to bilateral forearms, thighs, stomach, depression x1 day worsening.? patient tells me she is having hallucinations that are telling her to cut herself. She tells me she was fine earlier today. Tells me she is feeling better now. Denies suicidal and homicidal ideation tells me she was just doing this to feel something. At this time is denying visual, auditory and tactile hallucinations. No medical complaints. <TIMI Cruz Last Filed: 11/20/22 18:48> Related Data Home Medications: Home Medications Medication Instructions Recorded Confirmed atorvastatin 10 mg tablet 10 mg PO DAILY 05/29/21 11/07/22 metformin 500 mg tablet 1 tab PO BID 05/29/21 11/07/22 montelukast 10 mg tablet 1 tab PO BEDTIME 05/29/21 11/07/22 fluphenazine HCl 5 mg tablet 1 tab PO BEDTIME 03/19/22 11/07/22 chlorpromazine 25 mg tablet 3 tab PO DAILY@1700 06/17/22 11/07/22 fluoxetine 20 mg capsule 60 mg PO DAILY 07/30/22 11/07/22 lisinopril 5 mg tablet 1 tab PO DAILY 07/30/22 11/07/22 nicotine (polacrilex) 4 mg gum 1 ea PO Q2H PRN Smoking Cessation 07/30/22 11/07/22 sennosides 8.6 mg tablet (senna) 8.6 mg PO BEDTIME PRN Constipation 09/11/22 11/07/22 trazodone 150 mg tablet 1 tab PO BEDTIME 09/23/22 11/07/22 Previous Rx's Medication Instructions Recorded prazosin 1 mg capsule 4 mg PO BEDTIME 30 days #120 caps 10/18/21 cefuroxime axetil 250 mg tablet 250 mg PO BID 7 days #14 tabs 11/02/22 <TIMI Cruz - Last Filed: 11/20/22 18:48> Allergies/Adverse Reactions: Allergies Allergy/AdvReac Type Severity Reaction Status Date / Time Fish Containing Products Allergy Severe ANAPHYLAXIS Verified 08/29/22 12:26 codeine [Codeine] Allergy Intermediate RASH Verified 08/29/22 12:26 Penicillins Allergy Intermediate RASH Verified 08/29/22 12:26 prednisone [Prednisone] Allergy Intermediate RASH Verified 08/29/22 12:26 Sulfa (Sulfonamide Allergy Intermediate RASH Verified 08/29/22 12:26 Antibiotics) [Sulfa (Sulfonamides)] azithromycin [AZITHROMYCIN] AdvReac Severe RASH Verified 08/29/22 12:26 ziprasidone [From Geodon] AdvReac Intermediate dysuria, Verified 08/29/22 12:26 rash <TIMI Cruz Last Filed: 11/20/22 18:48> Review of Systems Review of Systems: Constitutional : No Weight loss, No Fever, No Chills, No Fatigue, No Malaise ENT/Mouth : No sore throat, No Rhinorrhea Eyes: No Eye Pain, No Swelling, No Redness Cardiovascular : No Chest Pain, No SOB, No Dyspnea on Exertion, No Orthopnea, No Edema, No Palpitations Respiratory : No Cough, No Sputum, No Wheezing Gastrointestinal : No Nausea, No Vomiting, No Diarrhea, No Constipation, No abdominal Pain, No Hematochezia, No Melena Genitourinary : No Dysuria, No Urinary Frequency, No Hematuria, Musculoskeletal : No joint pain, No Myalgias, No Joint Swelling Skin : No Skin Lesions, No rash, + laceration Neuro : No Weakness, No Numbness, No Dizziness, No Headache Psych : No Anxiety/Panic, No Depression All other systems reviewed and are negative <TIMI Cruz - Last Filed: 11/20/22 18:48> Yes all other systems are reviewed and are negative <TIMI Cruz - Last Filed: 11/20/22 18:48> [facility] Past Medical History Attestation statement: The following information was validated with the patient. <TIMI Cruz - Last Filed: 11/20/22 18:48> Source: old records reviewed and nursing notes reviewed <TIMI Cruz - Last Filed: 11/20/22 18:48> Medical History: Medical History Acetaminophen overdose Borderline personality disorder Bronchitis Depression Diabetes type 2, controlled Full body hives GERD (gastroesophageal reflux disease) History of attempted suicide History of non-suicidal self-harm Hyperlipidemia Hypomagnesemia Major depression MDD (major depressive disorder), recurrent episode, severe Mood disorder Overdose PTSD (post-traumatic stress disorder) Suicide attempt Suicide attempt by acetaminophen overdose <TIMI Cruz - Last Filed: 11/20/22 18:48> Social History Social History: Social History Household Members: Other Household Members Other:: residential Housing: Other Housing Other:: residential Do you presently have visiting nurse or other home services: No Unable to assess alcohol history related to: Unknown Alcohol intake: former Patient Tobacco Use Status: Current everyday Tobacco user Tobacco use type: Cigarette Cigarette Packs Per Day: 1 Cigarettes Per Day: 16 Years Smoked: 20 e-Cigarette/Vaping Use: Never Used Substance Use Type: Marijuana Advance Directives: No Advance Directives Information Provided: Yes Healthcare Proxy: No Guardian: No service: No Current occupational status: unemployed and disabled Sexual orientation: Don't Know <TIMI Cruz - Last Filed: 11/20/22 18:48> Physical Exam Vital Signs: Vital Signs: BMI result Body Mass Index 36.3 vss <TIMI Cruz - Last Filed: 11/20/22 18:48> Vital Signs: BMI result Body Mass Index 36.3 <Beny Patton MD - Last Filed: 11/20/22 22:28> Appearance: Alert.? Oriented X3.? No acute distress.? Head: Normocephalic, atraumatic, no step-offs or deformities Eyes: Pupils equal, round and reactive to light.? CVS: Normal heart rate and rhythm.? Pulses normal.? Respiratory: No respiratory distress.? Breath sounds normal.? Abdomen: Soft and nontender.? Skin: Skin warm and dry.? Normal skin color.? Normal skin turgor.?+ Self- inflicted superficial wounds to bilateral forearms, anterior thighs bilaterally, stomach. Extremities: No lower extremity edema.? No calf ttp. 5/5 strength to bilateral upper and lower extremities Back: No midline tenderness, no C-spine tenderness, full range of motion, no CVA tenderness bilaterally Neuro: Oriented X 3.? No motor deficit.? No sensory deficit. CN 2-12 intact <TIMI Cruz - Last Filed: 11/20/22 18:48> Course Reevaluation(s) Reevaluation #1: CBC with a normocytic anemia that appears to be around patient's baseline. Chemistry with no acute electrolyte abnormalities requiring intervention. Urine toxicology negative. Salicylates, acetaminophen ethanol negative. COVID negative. Patient feeling better at this time she met with Kait from the Care Team, denies SI and HI. Cutting to feel pain, and was reporting command auditory hallucinations which have since subsided. Patient feels well, optimistic, will be discharge back to residential. Educated patient on diagnosis and treatment plan, answered all question, patient verbalizes understanding. At this time patient will be discharged home, advised to return with new or worsening symptoms. Educated on worrisome signs and symptoms and when to return. At this time I feel comfortable discharge home. <TIMI Cruz - Last Filed: 11/20/22 18:48> Time: 18:47 <TIMI Cruz - Last Filed: 11/20/22 18:48> Medications Administered Discontinued Medications Generic Name Dose Route Start Last Admin Trade Name Freq PRN Reason Stop Dose Admin Nicotine 14 mg 11/20/22 17:29 11/20/22 17:55 Nicotine 14 Mg Patch.Td24 TRANSDERMA 11/20/22 17:30 14 mg ONCE ONE Administration <TIMI Cruz - Last Filed: 11/20/22 18:48> Medications Administered Discontinued Medications Generic Name Dose Route Start Last Admin Trade Name Elmer PRN Reason Stop Dose Admin Nicotine 14 mg 11/20/22 17:29 11/20/22 17:55 Nicotine 14 Mg Patch.Td24 TRANSDERMA 11/20/22 17:30 14 mg ONCE ONE Administration <Beny Patton MD - Last Filed: 11/20/22 22:28> Medical Decision Making Medical Decision Making [facility] Narrative: 1730 46-year-old female presenting with anxiety, depression, visual and auditory hallucinations , self-inflicted wounds . Physical examination w/ Superficial wounds to bilateral forearms, anterior thigh use, abdomen Likley MDD vs borderline personality do vs anxiety.? Unlikely metabolic causes. Plan- medical clearance and evaluation by [facility] <TIMI Cruz - Last Filed: 11/20/22 18:48> Differential Diagnosis Differential Diagnoses: The differential diagnosis associated with the presentation includes <TIMI Cruz - Last Filed: 11/20/22 18:48> Likley MDD vs borderline personality do vs anxiety.? Unlikely metabolic causes. <TIMI Cruz - Last Filed: 11/20/22 18:48> Admission/Observation Consideration of admission/observation: Escalation of care including admission/observation considered <TIMI Cruz - Last Filed: 11/20/22 18:48> Lab Data [facility] Lab Attestation statement: I reviewed the patient's lab results. <TIMI Cruz - Last Filed: 11/20/22 18:48> Result Diagrams: 11/20/22 18:11 11/20/22 18:11 <TIMI Cruz - Last Filed: 11/20/22 18:48> Labs: Lab Results 11/20/22 11/20/22 11/20/22 Range/Units 17:48 17:48 18:11 WBC 7.8 (4.8-10.8) X10*3/uL RBC 3.85 L (4.20-5.50) X10*6/uL Hgb 10.2 L (12.0-16.0) g/dl Hct 32.3 L (37.0-47.0) % MCV 83.9 (80.0-98.0) fL MCH 26.5 L (27.0-33.0) pg MCHC 31.6 (31.0-35.0) g/dl RDW 15.3 (11.0-16.0) % Plt Count 298 (160-400) X10*3/uL MPV 9.6 (9.4-12.3) fL Immature Gran % (Auto) 0.5 H (0.0-0.4) % Neut % (Auto) 60.8 (45-73) % Lymph % (Auto) 25.1 (20-40) % [place] % (Auto) 6.9 (2-11) % Eos % (Auto) 6.3 H (0-4) % Baso % (Auto) 0.4 (0-2) % Lymph # (Auto) 2.0 (1.2-4.9) X10*3/uL [place] # (Auto) 0.5 (0.1-1.2) X10*3/uL Eos # (Auto) 0.5 H (0.0-0.4) X10*3/uL Baso # (Auto) 0.0 (0.0-0.2) X10*3/uL Abs Immat Gran (auto) 0.04 H (0.00-0.03) X10*3/uL Absolute Neuts (auto) 4.7 (2.0-8.3) x10*3/uL Absolute Nucleated RBC 0.000 (0.0-0.012) X10*3/uL Nucleated RBC % (auto) 0.0 (0.0-0.2) /100WBC Sodium (135-145) mmol/L Potassium (3.3-5.1) mmol/L Chloride (96-108) mmol/L Carbon Dioxide (22-29) mmol/L Anion Gap (12-20) BUN (9-16) mg/dL Creatinine (0.5-1.4) mg/dL Estim Creat Clear Calc Estimated GFR Random Glucose (60-115) mg/dL Calcium (8.4-10.2) mg/dL Magnesium (1.6-2.6) mg/dL Total Bilirubin (0.0-1.0) mg/dL AST (5-31) U/L ALT (0-31) U/L Alkaline Phosphatase (39-117) U/L Total Protein (6.5-8.0) g/dL Albumin (3.5-5.0) g/dL Salicylates (15-30) mg/dL Urine Opiates Screen Not Detected (Not Detect) Urine Fentanyl Screen Not Detected (Not Detect) Acetaminophen (<30) mcg/mL Ur Barbiturates Screen Not Detected (Not Detect) Ur Phencyclidine Scrn Not Detected (Not Detect) Ur Amphetamines Screen Not Detected (Not Detect) U Benzodiazepines Scrn Not Detected (Not Detect) Urine Cocaine Screen Not Detected (Not Detect) U Marijuana (THC) Screen Not Detected (Not Detect) Ethyl Alcohol mg/dL COVID-19 (NICK) Negative (Negative) COVID-19 Clin Com See Note 11/20/22 Range/Units 18:11 WBC (4.8-10.8) X10*3/uL RBC (4.20-5.50) X10*6/uL Hgb (12.0-16.0) g/dl Hct (37.0-47.0) % MCV (80.0-98.0) fL MCH (27.0-33.0) pg MCHC (31.0-35.0) g/dl RDW (11.0-16.0) % Plt Count (160-400) X10*3/uL MPV (9.4-12.3) fL Immature Gran % (Auto) (0.0-0.4) % Neut % (Auto) (45-73) % Lymph % (Auto) (20-40) % [place] % (Auto) (2-11) % Eos % (Auto) (0-4) % Baso % (Auto) (0-2) % Lymph # (Auto) (1.2-4.9) X10*3/uL [place] # (Auto) (0.1-1.2) X10*3/uL Eos # (Auto) (0.0-0.4) X10*3/uL Baso # (Auto) (0.0-0.2) X10*3/uL Abs Immat Gran (auto) (0.00-0.03) X10*3/uL Absolute Neuts (auto) (2.0-8.3) x10*3/uL Absolute Nucleated RBC (0.0-0.012) X10*3/uL Nucleated RBC % (auto) (0.0-0.2) /100WBC Sodium 137 (135-145) mmol/L Potassium 3.8 (3.3-5.1) mmol/L Chloride 103 (96-108) mmol/L Carbon Dioxide 23 (22-29) mmol/L Anion Gap 15 (12-20) BUN 8 L (9-16) mg/dL Creatinine 0.83 (0.5-1.4) mg/dL Estim Creat Clear Calc 97.3 Estimated GFR > 60 Random Glucose 158 H (60-115) mg/dL Calcium 9.1 (8.4-10.2) mg/dL Magnesium 1.6 (1.6-2.6) mg/dL Total Bilirubin 0.2 (0.0-1.0) mg/dL AST 16 (5-31) U/L ALT 19 (0-31) U/L Alkaline Phosphatase 123 H (39-117) U/L Total Protein 7.0 (6.5-8.0) g/dL Albumin 4.4 (3.5-5.0) g/dL Salicylates < 5.0 L (15-30) mg/dL Urine Opiates Screen (Not Detect) Urine Fentanyl Screen (Not Detect) Acetaminophen < 17 (<30) mcg/mL Ur Barbiturates Screen (Not Detect) Ur Phencyclidine Scrn (Not Detect) Ur Amphetamines Screen (Not Detect) U Benzodiazepines Scrn (Not Detect) Urine Cocaine Screen (Not Detect) U Marijuana (THC) Screen (Not Detect) Ethyl Alcohol < 10 mg/dL COVID-19 (NICK) (Negative) COVID-19 Clin Com <TIMI Cruz - Last Filed: 11/20/22 18:48> Lab Results 11/20/22 11/20/22 11/20/22 Range/Units 17:48 17:48 18:11 WBC 7.8 (4.8-10.8) X10*3/uL RBC 3.85 L (4.20-5.50) X10*6/uL Hgb 10.2 L (12.0-16.0) g/dl Hct 32.3 L (37.0-47.0) % MCV 83.9 (80.0-98.0) fL MCH 26.5 L (27.0-33.0) pg MCHC 31.6 (31.0-35.0) g/dl RDW 15.3 (11.0-16.0) % Plt Count 298 (160-400) X10*3/uL MPV 9.6 (9.4-12.3) fL Immature Gran % (Auto) 0.5 H (0.0-0.4) % Neut % (Auto) 60.8 (45-73) % Lymph % (Auto) 25.1 (20-40) % [place] % (Auto) 6.9 (2-11) % Eos % (Auto) 6.3 H (0-4) % Baso % (Auto) 0.4 (0-2) % Lymph # (Auto) 2.0 (1.2-4.9) X10*3/uL [place] # (Auto) 0.5 (0.1-1.2) X10*3/uL Eos # (Auto) 0.5 H (0.0-0.4) X10*3/uL Baso # (Auto) 0.0 (0.0-0.2) X10*3/uL Abs Immat Gran (auto) 0.04 H (0.00-0.03) X10*3/uL Absolute Neuts (auto) 4.7 (2.0-8.3) x10*3/uL Absolute Nucleated RBC 0.000 (0.0-0.012) X10*3/uL Nucleated RBC % (auto) 0.0 (0.0-0.2) /100WBC Sodium (135-145) mmol/L Potassium (3.3-5.1) mmol/L Chloride (96-108) mmol/L Carbon Dioxide (22-29) mmol/L Anion Gap (12-20) BUN (9-16) mg/dL Creatinine (0.5-1.4) mg/dL Estim Creat Clear Calc Estimated GFR Random Glucose (60-115) mg/dL Calcium (8.4-10.2) mg/dL Magnesium (1.6-2.6) mg/dL Total Bilirubin (0.0-1.0) mg/dL AST (5-31) U/L ALT (0-31) U/L Alkaline Phosphatase (39-117) U/L Total Protein (6.5-8.0) g/dL Albumin (3.5-5.0) g/dL Salicylates (15-30) mg/dL Urine Opiates Screen Not Detected (Not Detect) Urine Fentanyl Screen Not Detected (Not Detect) Acetaminophen (<30) mcg/mL Ur Barbiturates Screen Not Detected (Not Detect) Ur Phencyclidine Scrn Not Detected (Not Detect) Ur Amphetamines Screen Not Detected (Not Detect) U Benzodiazepines Scrn Not Detected (Not Detect) Urine Cocaine Screen Not Detected (Not Detect) U Marijuana (THC) Screen Not Detected (Not Detect) Ethyl Alcohol mg/dL COVID-19 (NICK) Negative (Negative) COVID-19 Clin Com See Note 11/20/22 Range/Units 18:11 WBC (4.8-10.8) X10*3/uL RBC (4.20-5.50) X10*6/uL Hgb (12.0-16.0) g/dl Hct (37.0-47.0) % MCV (80.0-98.0) fL MCH (27.0-33.0) pg MCHC (31.0-35.0) g/dl RDW (11.0-16.0) % Plt Count (160-400) X10*3/uL MPV (9.4-12.3) fL Immature Gran % (Auto) (0.0-0.4) % Neut % (Auto) (45-73) % Lymph % (Auto) (20-40) % [place] % (Auto) (2-11) % Eos % (Auto) (0-4) % Baso % (Auto) (0-2) % Lymph # (Auto) (1.2-4.9) X10*3/uL [place] # (Auto) (0.1-1.2) X10*3/uL Eos # (Auto) (0.0-0.4) X10*3/uL Baso # (Auto) (0.0-0.2) X10*3/uL Abs Immat Gran (auto) (0.00-0.03) X10*3/uL Absolute Neuts (auto) (2.0-8.3) x10*3/uL Absolute Nucleated RBC (0.0-0.012) X10*3/uL Nucleated RBC % (auto) (0.0-0.2) /100WBC Sodium 137 (135-145) mmol/L Potassium 3.8 (3.3-5.1) mmol/L Chloride 103 (96-108) mmol/L Carbon Dioxide 23 (22-29) mmol/L Anion Gap 15 (12-20) BUN 8 L (9-16) mg/dL Creatinine 0.83 (0.5-1.4) mg/dL Estim Creat Clear Calc 97.3 Estimated GFR > 60 Random Glucose 158 H (60-115) mg/dL Calcium 9.1 (8.4-10.2) mg/dL Magnesium 1.6 (1.6-2.6) mg/dL Total Bilirubin 0.2 (0.0-1.0) mg/dL AST 16 (5-31) U/L ALT 19 (0-31) U/L Alkaline Phosphatase 123 H (39-117) U/L Total Protein 7.0 (6.5-8.0) g/dL Albumin 4.4 (3.5-5.0) g/dL Salicylates < 5.0 L (15-30) mg/dL Urine Opiates Screen (Not Detect) Urine Fentanyl Screen (Not Detect) Acetaminophen < 17 (<30) mcg/mL Ur Barbiturates Screen (Not Detect) Ur Phencyclidine Scrn (Not Detect) Ur Amphetamines Screen (Not Detect) U Benzodiazepines Scrn (Not Detect) Urine Cocaine Screen (Not Detect) U Marijuana (THC) Screen (Not Detect) Ethyl Alcohol < 10 mg/dL COVID-19 (NICK) (Negative) COVID-19 Clin Com <Beny Patton MD - Last Filed: 11/20/22 22:28> Attestation Attending Attestation: I reviewed ROLLER/PA/Resident note, assessment and plan. I agree with the documentation, assessment and plan unless otherwise stated. <Beny Patton MD - Last Filed: 11/20/22 22:28> Critical Care Time Critical Care Time Critical Care Time: No <TIMI Cruz - Last Filed: 11/20/22 18:48> Discharge Plan Discharge Clinical Impression: Depression <TIMI Cruz - Last Filed: 11/20/22 18:48> Patient Disposition: Home, Self-Care <TIMI Cruz - Last Filed: 11/20/22 18:48> Instructions: Depression (ED) <TIMI Cruz - Last Filed: 11/20/22 18:48> Additional Instructions: Take your medications as prescribed. If you were prescribed antibiotics today, it is important that you take your medication to their entirety, do not skip any doses, do not finish them early. Follow-up with your primary care provider this week. Return to the emergency department with new or worsening symptoms. Such as fevers, chills, chest pain, shortness of breath, nausea, vomiting, dizziness, headache, vision changes, lethargy , suicidal or homicidal ideation In case of emergency call 911 <TIMI Cruz - Last Filed: 11/20/22 18:48> Prescriptions: No Action metformin 500 mg tablet 1 tab PO BID atorvastatin 10 mg tablet 10 mg PO DAILY montelukast 10 mg tablet 1 tab PO BEDTIME chlorpromazine 25 mg tablet 3 tab PO DAILY@1700 nicotine (polacrilex) 4 mg gum 1 ea PO Q2H PRN (Reason: Smoking Cessation) lisinopril 5 mg tablet 1 tab PO DAILY fluoxetine 20 mg capsule 60 mg PO DAILY cefuroxime axetil 250 mg tablet 250 mg PO BID 7 Days Qty: 14 0RF prazosin 1 mg Capsule 4 mg PO BEDTIME 30 Days Qty: 120 0RF Protocol: Hold for SBP< HOLD for SBP < : 90 fluphenazine HCl 5 mg tablet 1 tab PO BEDTIME sennosides [senna] 8.6 mg Tablet 8.6 mg PO BEDTIME PRN (Reason: Constipation) trazodone 150 mg tablet 1 tab PO BEDTIME <TIMI Cruz Last Filed: 11/20/22 18:48> Referrals: [facility] [Provider Group[facility] - 2 days Physician,Unknown J [Primary Care Provider] - 2 days <TIMI Cruz - Last Filed: 11/20/22 18:48> Interventions: [place]-Suicide Risk Severity Scale Last Done: 11/20/22 18:56 ED Discharge Assessment Last Done: 11/20/22 18:56 <TIMI Cruz - Last Filed: 11/20/22 18:48> Discharge Date/Time: 11/20/22 19:11 <TIMI Cruz - Last Filed: 11/20/22 18:48>
[2022-11-20 17:35] VITALS: BP 154/98; PULSE 110; O2SAT 98; BMI 36.3
[2022-11-20] MEDS: Nicotine 14 MG PATCH.TD24 TRANSDERMA (17:55)
[2022-11-20 18:08] LABS: Amphetamine Screen Urine Not Detected (Not Detect); Barbiturates, Urine Not Detected (Not Detect); Benzodiazepines Screen Urine Not Detected (Not Detect); Cannabinoid Screen Urine Not Detected (Not Detect); Cocaine Screen Urine Not Detected (Not Detect); Fentanyl, urine Not Detected (Not Detect); Opiate Screen Urine Not Detected (Not Detect); Phencyclidine Screen Urine Not Detected (Not Detect)
[2022-11-20 18:12] LABS: COVID-19 Test Negative (Negative); IDNOW Serial# 16C4AD1C
[2022-11-20 18:24] LABS: MANUAL DIFF FLAG NO
[2022-11-20 18:25] LABS: Basophils Percent Auto 0.4 % (0-2); Eosinophils Absolute Auto 0.5 X10*3/uL (0.0-0.4); Eosinophils Percent Auto 6.3 % (0-4); Hematocrit 32.3 % (37.0-47.0); Hemoglobin 10.2 g/dl (12.0-16.0); Imm Gran Abs Auto 0.04 X10*3/uL (0.00-0.03); Imm Gran Pct Auto 0.5 % (0.0-0.4); Lymphocytes Percent Auto 25.1 % (20-40); Mean Corpuscular HGB Conc 31.6 g/dl (31.0-35.0); Mean Corpuscular Hemoglobin 26.5 pg (27.0-33.0); Mean Corpuscular Volume 83.9 fL (80.0-98.0); Mean Platelet Volume 9.6 fL (9.4-12.3); Monocytes Absolute Auto 0.5 X10*3/uL (0.1-1.2); Monocytes Percent Auto 6.9 % (2-11); Neutrophils Absolute Auto 4.7 x10*3/uL (2.0-8.3); Neutrophils Percent Auto 60.8 % (45-73); Platelet Count 298 X10*3/uL (160-400); Red Blood Count 3.85 X10*6/uL (4.20-5.50); Red Cell Distribution Width 15.3 % (11.0-16.0); White Blood Count 7.8 X10*3/uL (4.8-10.8)
[2022-11-20 18:42] LABS: Acetaminophen LAB < 17 mcg/mL (<30); Alanine Aminotransferase 19 U/L (0-31); Albumin Level 4.4 g/dL (3.5-5.0); Alkaline Phosphatase 123 U/L (39-117); Anion Gap 15 (12-20); Aspartate Amino Transferase 16 U/L (5-31); Bilirubin Total 0.2 mg/dL (0.0-1.0); Blood Urea Nitrogen 8 mg/dL (9-16); Calcium 9.1 mg/dL (8.4-10.2); Carbon Dioxide 23 mmol/L (22-29); Chloride 103 mmol/L (96-108); Creatinine Clr Calc Pharmacy 97.3; Estimated Glomerular Filt Rate > 60; Ethanol < 10 mg/dL; Glucose Random 158 mg/dL (60-115); Magnesium 1.6 mg/dL (1.6-2.6); Potassium 3.8 mmol/L (3.3-5.1); Salicylate < 5.0 mg/dL (15-30); Sodium 137 mmol/L (135-145)
== END 2022-11-20 19:11 | disposition home or self-care (01) ==
PROVIDERS: Physician Assistant; Emergency Provider Emergency Medicine
DX: F32.A Depression, unspecified (principal); Z20.822 Contact with and (suspected) exposure to COVID-19; R44.0 Auditory hallucinations; R45.851 Suicidal ideations; F60.3 Borderline personality disorder; F41.9 Anxiety disorder, unspecified; F43.10 Post-traumatic stress disorder, unspecified; E11.9 Type 2 diabetes mellitus without complications; E78.5 Hyperlipidemia, unspecified; D64.9 Anemia, unspecified; F17.210 Nicotine dependence, cigarettes, uncomplicated; F12.90 Cannabis use, unspecified, uncomplicated; E66.9 Obesity, unspecified; Z68.36 Body mass index [BMI] 36.0-36.9, adult; Z91.52 Personal history of nonsuicidal self-harm; Z91.51 Personal history of suicidal behavior; Z79.84 Long term (current) use of oral hypoglycemic drugs; Z79.899 Other long term (current) drug therapy
CPT/HCPCS: 80053; 80143; 80179; 80307; 82077; 83735; 85025; 87635; 99283

== ENCOUNTER 2022-11-26 16:07 | Emergency (ER) | payer MEDICARE, MEDICAID, SELFPAY ==
[2022-11-26 16:15] VITALS: BP 150/60; PULSE 106; O2SAT 99
[2022-11-26 16:26] VITALS: BP 137/80; PULSE 105; RESP 20; TEMP 36.8; O2SAT 98; BMI 34.9
--- NOTE | 2022-11-26 16:58 | ED.GENADULT ---
HPI - General Adult General Chief complaint: General Medical Stated complaint: SORE THROAT,COUGH X4 DAYS,HEARING VOICES PER EMS Time Seen by Provider: 11/26/22 16:21 Source: patient Mode of arrival: ambulatory Limitations: no limitations History of Present Illness HPI narrative: Patient comes to the emergency room complaining of a sore throat for the last 3 days. Patient states it hurts when she swallows. Patient able to control her own secretions. Patient states that no one at her [facility] is sick. Patient also states that she is hearing voices telling her to hurt herself. Related Data Home Medications Medication Instructions Recorded Confirmed atorvastatin 10 mg tablet 10 mg PO DAILY 05/29/21 11/07/22 metformin 500 mg tablet 1 tab PO BID 05/29/21 11/07/22 montelukast 10 mg tablet 1 tab PO BEDTIME 05/29/21 11/07/22 fluphenazine HCl 5 mg tablet 1 tab PO BEDTIME 03/19/22 11/07/22 chlorpromazine 25 mg tablet 3 tab PO DAILY@1700 06/17/22 11/07/22 fluoxetine 20 mg capsule 60 mg PO DAILY 07/30/22 11/07/22 lisinopril 5 mg tablet 1 tab PO DAILY 07/30/22 11/07/22 nicotine (polacrilex) 4 mg gum 1 ea PO Q2H PRN Smoking Cessation 07/30/22 11/07/22 sennosides 8.6 mg tablet (senna) 8.6 mg PO BEDTIME PRN Constipation 09/11/22 11/07/22 trazodone 150 mg tablet 1 tab PO BEDTIME 09/23/22 11/07/22 Previous Rx's Medication Instructions Recorded prazosin 1 mg capsule 4 mg PO BEDTIME 30 days #120 caps 10/18/21 cefuroxime axetil 250 mg tablet 250 mg PO BID 7 days #14 tabs 11/02/22 cephalexin 500 mg capsule 500 mg PO BID #14 caps 11/26/22 Allergies Allergy/AdvReac Type Severity Reaction Status Date / Time Fish Containing Products Allergy Severe ANAPHYLAXIS Verified 08/29/22 12:26 codeine [Codeine] Allergy Intermediate RASH Verified 08/29/22 12:26 Penicillins Allergy Intermediate RASH Verified 08/29/22 12:26 prednisone [Prednisone] Allergy Intermediate RASH Verified 08/29/22 12:26 Sulfa (Sulfonamide Allergy Intermediate RASH Verified 08/29/22 12:26 Antibiotics) [Sulfa (Sulfonamides)] azithromycin [AZITHROMYCIN] AdvReac Severe RASH Verified 08/29/22 12:26 ziprasidone [From Geodon] AdvReac Intermediate dysuria, Verified 08/29/22 12:26 rash Review of Systems Review of Systems: Constitutional : No Weight loss, No Fever, No Chills, No Night Sweats, No Fatigue, No Malaise ENT/Mouth : No Hearing loss, No Ear Pain, No Nasal Congestion, No Sinus Pain, No Hoarseness, complaining of sore throat, No Rhinorrhea, No Swallowing Difficulty Eyes: No Eye Pain, No Swelling, No Redness, No Foreign Body, No Discharge, No Vision Changes Cardiovascular : No Chest Pain, No SOB, No Dyspnea on Exertion, No Orthopnea, No Edema, No Palpitations Respiratory : No Cough, No Sputum, No Wheezing, No Smoke Exposure, No Dyspnea Gastrointestinal : No Nausea, No Vomiting, No Diarrhea, No Constipation, No abdominal Pain, No Hematochezia, No Melena Genitourinary : no irregular bleeding, No Dysuria, No Urinary Frequency, No Hematuria, No Urinary Incontinence, No Urgency, No Flank Pain, No Urinary Flow Changes, No Hesitancy Musculoskeletal : No joint pain, No Myalgias, No Joint Swelling Skin : No Skin Lesions, No rash Neuro : No Weakness, No Numbness, No Paresthesias, No Loss of Consciousness, No Dizziness, No Headache Psych : Denies SI or HI, complaining of hearing voices telling her to hurt herself Heme/Lymph: No Bruising, No Bleeding,No Lymphadenopathy Endocrine : No Polyuria, No Polydipsia, No Temperature Intolerance [facility] Past Medical History Medical History Acetaminophen overdose Borderline personality disorder Bronchitis Depression Diabetes type 2, controlled Full body hives GERD (gastroesophageal reflux disease) History of attempted suicide History of non-suicidal self-harm Hyperlipidemia Hypomagnesemia Major depression MDD (major depressive disorder), recurrent episode, severe Mood disorder Overdose PTSD (post-traumatic stress disorder) Suicide attempt Suicide attempt by acetaminophen overdose Social History Social History Household Members: Other Household Members Other:: [facility] Housing: Other Housing Other:: [facility] Do you presently have visiting nurse or other home services: No Unable to assess alcohol history related to: Unknown Alcohol intake: former Patient Tobacco Use Status: Current everyday Tobacco user Tobacco use type: Cigarette Cigarette Packs Per Day: 1 Cigarettes Per Day: 16 Years Smoked: 20 e-Cigarette/Vaping Use: Never Used Substance Use Type: Marijuana Advance Directives: No Advance Directives Information Provided: No service: No Current occupational status: unemployed and disabled Sexual orientation: Don't Know Physical Exam ED Vital Signs: Vital Signs - 24 hr 11/26/22 16:26 11/26/22 18:00 Temperature 98.3 F 97.9 F Pulse Rate 105 H 74 Respiratory Rate 20 17 Blood Pressure 137/80 161/81 H Pulse Oximetry 98 97 Oxygen Delivery Method Room Air Room Air BMI result Body Mass Index 34.9 Const Other: Appearance: Alert. Oriented X3. No acute distress. Eyes: Pupils equal, round and reactive to light. ENT: Patient has bilateral exudates and tonsils, no visualized abscess. Neck: Normal inspection. Neck supple. No lymph nodes noted. No crepitus CVS: Normal heart rate and rhythm. Pulses normal. Normal S1 and S2 Respiratory: No respiratory distress. Breath sounds normal. No Wheezing. No rales Abdomen: Soft and nontender. No rigidity. No distention. Skin: Skin warm and dry. Patient has superficial cuts in her lower extremities, seemed to be healing well Extremities: No lower extremity edema. No Lacerations. No Rash Neuro: Oriented X 3. No motor deficit. No sensory deficit. Moving all extremities. No slurred speech. CN 2 through 12 grossly intact Psych: calm, cooperative, normal affect Course Course Course Narrative: -patient will be tested for strep a, COVID and influenza. -care team has been consulted. Patient is well known to their service. Patient is not endorsing SI or HI Medical Decision Making Medical Decision Making MDM Narrative: -patient tested negative for COVID-19, influenza and COVID, also tested negative for strep today. However, patient has exited in the throat. Patient has no fever, no generalized malaise., no lymphadenopathy. Sierra is not suspected at this time. -given the patient's physical exam, I will go ahead and medicate the patient with antibiotics and p.o. viscous lidocaine for comfort. Patient is allergic to penicillin, sulfa, azithromycin. Patient being given 1 dose of cephalexin Care team consult pending. - Lab Data Labs: Lab Results 11/26/22 11/26/22 11/26/22 Range/Units 17:52 17:52 17:52 COVID-19 ([facility]) Negative (Negative) COVID-19 Clin Com See Note Influenza Type A ([facility]) Negative (Negative) Influenza Type B ([facility]) Negative (Negative) Influenza A & B Note See Note S. pyogenes GrpA [facility] Negative (Negative) Discharge Plan Discharge Clinical Impression: Pharyngitis, Auditory hallucination Patient Disposition: Home, Self-Care Instructions: Strep Throat (ED), Anxiety (ED) Additional Instructions: Please follow-up with your primary care physician tomorrow. If you have any worsening or new symptoms, please return to the emergency room or call 911 Prescriptions: New cephalexin 500 mg capsule 500 mg PO BID Qty: 14 0RF No Action metformin 500 mg tablet 1 tab PO BID atorvastatin 10 mg tablet 10 mg PO DAILY montelukast 10 mg tablet 1 tab PO BEDTIME chlorpromazine 25 mg tablet 3 tab PO DAILY@1700 nicotine (polacrilex) 4 mg gum 1 ea PO Q2H PRN (Reason: Smoking Cessation) lisinopril 5 mg tablet 1 tab PO DAILY fluoxetine 20 mg capsule 60 mg PO DAILY cefuroxime axetil 250 mg tablet 250 mg PO BID 7 Days Qty: 14 0RF prazosin 1 mg Capsule 4 mg PO BEDTIME 30 Days Qty: 120 0RF Protocol: Hold for SBP< HOLD for SBP < : 90 fluphenazine HCl 5 mg tablet 1 tab PO BEDTIME sennosides [senna] 8.6 mg Tablet 8.6 mg PO BEDTIME PRN (Reason: Constipation) trazodone 150 mg tablet 1 tab PO BEDTIME
--- NOTE | 2022-11-26 17:00 | MHC.EDTECH ---
pt came in via ems ,pt got global director air and climate change into [facility] attire ,vitals sign taken ,flu,covid and strep swab done and sent to lab .
[2022-11-26 18:00] VITALS: BP 161/81; PULSE 74; RESP 17; TEMP 36.6; O2SAT 97
[2022-11-26 18:15] LABS: COVID-19 Test Negative (Negative); IDNOW Serial# 16C4AD1C; IDNOW Serial# 6674DD1D; Strep A Nucleic Acid Negative (Negative)
[2022-11-26 18:16] LABS: IDNOW Serial# BCCEAD1C; Influenza A Negative (Negative); Influenza B2 Negative (Negative)
--- NOTE | 2022-11-26 18:25 | PC.NURSE ---
Pt changed into hospital attire for safety, belongings in locker 8. Pt denies SI but reporting AH Swabs obtained per order, results pending. Occasional dry cough heard, no diff breathing. Skin PWD
[2022-11-26] MEDS: cephALEXin 500 MG CAPSULE PO (18:45)
[2022-11-26] MEDS: Lidocaine HCl Viscous 2 % 15 ML SOLUTION MUCOUS MEM (18:45)
--- NOTE | 2022-11-26 19:08 | PC.NURSE ---
Addendum entered by Pauline Lacey 11/26/22 22:10: pt denies any pain, is requesting care team, also wants a ride home; 1:1 sitter at bedside, no apparent distress Original Note: assumed care of pt at this time
[2022-11-26 21:21] VITALS: BP 138/76; PULSE 64; RESP 16; TEMP 36.6; O2SAT 94
--- NOTE | 2022-11-26 22:09 | PC.NURSE ---
pt sleeping at this time no apparent distress; 1:1 sitter continues to be at bedside
[2022-11-27 05:38] VITALS: BP 128/74; PULSE 76; RESP 16; TEMP 36.7; O2SAT 92
--- NOTE | 2022-11-27 07:33 | PC.NURSE ---
care team at bedside.
[2022-11-27 07:55] VITALS: BP 133/79; PULSE 88; RESP 16; TEMP 36.6; O2SAT 94
== END 2022-11-27 10:18 | disposition home or self-care (01) ==
PROVIDERS: Emergency Provider Emergency Medicine
DX: J02.8 Acute pharyngitis due to other specified organisms (principal); R05.9 Cough, unspecified; R44.0 Auditory hallucinations; F17.210 Nicotine dependence, cigarettes, uncomplicated; Z79.899 Other long term (current) drug therapy; Z71.6 Tobacco abuse counseling; Z20.822 Contact with and (suspected) exposure to COVID-19; Z20.828 Contact with and (suspected) exposure to other viral communicable diseases
CPT/HCPCS: 87502; 87635; 87651; 99284

== ENCOUNTER 2022-12-15 19:39 | Emergency (ER) | payer MEDICARE, MEDICAID, SELFPAY ==
--- NOTE | ~2022-12-15 | XR_ITS ---
EXAMINATION: XR CHEST CLINICAL INFORMATION: Overdose COMPARISON: Chest x-ray on 03/21/2022 TECHNIQUE: Frontal view of the chest was obtained. FINDINGS: The cardiac silhouette is normal. There is mild diffuse bronchial wall thickening. There are no areas of consolidation. There are no pleural effusions or pneumothoraces. The bones and soft tissues are unremarkable for the patient's age. XR/XR chest 1V IMPRESSION: Bronchial wall thickening may be infectious and/or inflammatory in etiology.
--- NOTE | 2022-12-15 19:44 | ED_ITS ---
HPI - Overdose General Chief Complaint: Overdose <Rosario Murry NP - Last Filed: 12/16/22 02:03> Stated Complaint: Crisis <Rosario Murry NP - Last Filed: 12/16/22 02:03> Source: patient, EMS and police <Rosario Murry NP - Last Filed: 12/16/22 02:03> Mode of arrival: EMS <Rosario Murry NP - Last Filed: 12/16/22 02:03> Limitations: no limitations <Rosario Murry NP - Last Filed: 12/16/22 02:03> History of Present Illness HPI Narrative: 47-year-old female presents via EMS with police escort on [place] [address] for overdosing on cold and flu medication. States that she took 12 tablets of nighttime cold and flu, and refused to come to the emergency department. <Rosario Murry NP - Last Filed: 12/16/22 02:03> MD complaint: intentional overdose <Rosario Murry NP - Last Filed: 12/16/22 02:03> Onset (ago): minute(s) (Within 30 minutes of arrival) <Rosario Murry NP - Last Filed: 12/16/22 02:03> Intent: suicide attempt <Rosario Murry NP - Last Filed: 12/16/22 02:03> Context: Intentional Overdose: hearing voices <Rosario Murry NP - Last Filed: 12/16/22 02:03> Associated symptoms: depression and hallucinations <JUN Willis Last Filed: 12/16/22 02:03> Treatments Prior to Arrival: none <Rosario Murry NP - Last Filed: 12/16/22 02:03> Related Data Home Medications: Home Medications Medication Instructions Recorded Confirmed atorvastatin 10 mg tablet 10 mg PO DAILY 05/29/21 12/16/22 metformin 500 mg tablet 1 tab PO BID 05/29/21 12/16/22 montelukast 10 mg tablet 1 tab PO BEDTIME 05/29/21 12/16/22 fluphenazine HCl 5 mg tablet 1 tab PO BEDTIME 03/19/22 12/16/22 chlorpromazine 25 mg tablet 3 tab PO DAILY@1700 06/17/22 12/16/22 fluoxetine 20 mg capsule 60 mg PO DAILY 07/30/22 12/16/22 lisinopril 5 mg tablet 1 tab PO DAILY 07/30/22 12/16/22 nicotine (polacrilex) 4 mg gum 1 ea PO Q2H PRN Smoking Cessation 07/30/22 12/16/22 sennosides 8.6 mg tablet (senna) 8.6 mg PO BEDTIME PRN Constipation 09/11/22 12/16/22 trazodone 150 mg tablet 1 tab PO BEDTIME 09/23/22 12/16/22 Previous Rx's Medication Instructions Recorded prazosin 1 mg capsule 4 mg PO BEDTIME 30 days #120 caps 10/18/21 <Rosario Murry NP - Last Filed: 12/16/22 02:03> Allergies/Adverse Reactions: Allergies Allergy/AdvReac Type Severity Reaction Status Date / Time Fish Containing Products Allergy Severe ANAPHYLAXIS Verified 08/29/22 12:26 codeine [Codeine] Allergy Intermediate RASH Verified 08/29/22 12:26 Penicillins Allergy Intermediate RASH Verified 08/29/22 12:26 prednisone [Prednisone] Allergy Intermediate RASH Verified 08/29/22 12:26 Sulfa (Sulfonamide Allergy Intermediate RASH Verified 08/29/22 12:26 Antibiotics) [Sulfa (Sulfonamides)] azithromycin [AZITHROMYCIN] AdvReac Severe RASH Verified 08/29/22 12:26 ziprasidone [From Geodon] AdvReac Intermediate dysuria, Verified 08/29/22 12:26 rash <Rosario Murry NP - Last Filed: 12/16/22 02:03> Review of Systems Review of Systems: Constitutional: No Fever, No Chills Cardiovascular: No Chest Pain, No SOB Respiratory: No Cough, No Dyspnea Gastrointestinal: No Nausea, No Vomiting, No Diarrhea, No abdominal Pain Genitourinary: No Dysuria, No Hematuria Musculoskeletal: No joint pain, No Myalgias, No Joint Swelling Skin: No Skin lacerations, No rash, numerous superficial lacerations to bilateral upper extremities Neuro: No Weakness, No Numbness, No Paresthesias, No Loss of Consciousness, No Dizziness, No Headache Psych: Positive Anxiety/Panic, phos Depression, positive suicidal ideation, positive overdose attempt <Rosario Murry NP - Last Filed: 12/16/22 02:03> Yes all other systems are reviewed and are negative <Rosario Murry NP - Last Filed: 12/16/22 02:03> PMF Past Medical History Attestation statement: The following information was validated with the patient. <Rosario Murry NP - Last Filed: 12/16/22 02:03> Source: old records reviewed <Rosario Murry NP - Last Filed: 12/16/22 02:03> Medical History: Medical History Acetaminophen overdose Borderline personality disorder Bronchitis Depression Diabetes type 2, controlled Full body hives GERD (gastroesophageal reflux disease) History of attempted suicide History of non-suicidal self-harm Hyperlipidemia Hypomagnesemia Major depression MDD (major depressive disorder), recurrent episode, severe Mood disorder Overdose PTSD (post-traumatic stress disorder) Suicide attempt Suicide attempt by acetaminophen overdose <Rosario Murry NP - Last Filed: 12/16/22 02:03> Social History Social History: Social History Household Members: Other Household Members Other:: [facility] Housing: Other Housing Other:: [facility] Do you presently have visiting nurse or other home services: No Unable to assess alcohol history related to: Unknown Alcohol intake: never Patient Tobacco Use Status: Current everyday Tobacco user Tobacco use type: Cigarette Cigarette Packs Per Day: 1 Cigarettes Per Day: 16 Years Smoked: 20 Smoked in Last 30 Days: Yes e-Cigarette/Vaping Use: Never Used Use of substances other than those prescribed or required for medical reasons: No Substance Use Type: Marijuana Advance Directives: No Advance Directives Information Provided: Yes service: No Current occupational status: unemployed and disabled Sexual orientation: Don't Know <Rosario Murry NP - Last Filed: 12/16/22 02:03> Physical Exam Vital Signs: Vital Signs: Last Vital Signs Temp 97.0 F 12/16/22 07:53 Pulse 90 12/16/22 07:53 Resp 18 12/16/22 07:53 BP 136/89 12/16/22 07:53 Pulse Ox 97 12/16/22 07:53 O2 Del Method 12/16/22 07:53 BMI result Body Mass Index 37.1 <Rosario Murry NP - Last Filed: 12/16/22 02:03> Vital Signs: Last Vital Signs Temp 97.0 F 12/16/22 07:53 Pulse 90 12/16/22 07:53 Resp 18 12/16/22 07:53 BP 136/89 12/16/22 07:53 Pulse Ox 97 12/16/22 07:53 O2 Del Method 12/16/22 07:53 BMI result Body Mass Index 37.1 <Sy Allison MD - Last Filed: 12/16/22 09:17> Appearance: Alert. Oriented X3. Moderate emotional distress. Eyes: Pupils equal, round and reactive to light. Sclera nonicteric. EOMI. ENT: Pharynx normal. Moist mucous membranes. No tracheal stridor. Neck: Normal inspection. Neck supple. No vertebral tenderness or step-offs. CVS: Tachycardic heart rate and rhythm. S1-S2 no murmur gallops or rubs. Respiratory: No respiratory distress. Breath sounds normal. No tracheal stridor. Abdomen: Soft and nontender. No rigidity or distention. Skin: Skin warm and dry. Normal skin color. Numerous superficial self- inflicted lacerations to bilateral arms Extremities: No lower extremity edema. Moves all extremities against resistance. Gait not assessed for safety. Neuro: No motor deficit. No sensory deficit. Cranial nerves 2-12 intact. <Rosario Murry NP - Last Filed: 12/16/22 02:03> Course Course Course Narrative: 47-year-old female presents via EMS with police escort for overdose attempt. Took 12 tablets of nighttime cold and flu, 3250 mg of Tylenol approximately 30 minutes prior to arrival. Discussion with RN regarding plan for charcoal, labs, Tylenol levels, EKG and safety checks. RN will call poison control and follow recommendations. A 22:00 Labs are unremarkable, acetaminophen less than 35. Midnight Repeat acetaminophen negative. Third pending. EKG is normal. 02:00 30 seen a medicine less than 17. EKGs continued to be normal. Patient is medically cleared. Patient is section 12. Crisis and psychiatric consult pending. <Rosario Murry NP - Last Filed: 12/16/22 02:03> Reevaluation(s) Reevaluation #1: Patient now is awake, alert, oriented x3, has unremarkable Tylenol level, patient now is not suicidal or homicidal, patient would like to be discharged back to her [facility] were they will arrange for transportation. <Sy Allison MD - Last Filed: 12/16/22 09:17> Time: 09:14 <Sy Allison MD - Last Filed: 12/16/22 09:17> Medications Administered Generic Name Dose Route Start Last Admin Trade Name Freq PRN Reason Stop Dose Admin Atorvastatin Calcium 10 mg 12/16/22 09:00 12/16/22 08:07 Atorvastatin Calcium 10 Mg Tablet PO 10 mg DAILY YULY Administration Fluoxetine HCl 60 mg 12/16/22 09:00 12/16/22 08:07 Fluoxetine Hcl 20 Mg Capsule PO 60 mg DAILY YULY Administration Fluphenazine HCl 5 mg 12/16/22 07:30 12/16/22 08:07 Fluphenazine Hcl 5 Mg Tablet PO 5 mg BEDTIME YULY Administration Lisinopril 5 mg 12/16/22 09:00 12/16/22 08:07 Lisinopril 5 Mg Tablet PO 5 mg DAILY YULY Administration Protocol Metformin HCl 500 mg 12/16/22 09:00 12/16/22 08:07 Metformin Hcl 500 Mg Tablet PO 500 mg BID YULY Administration Montelukast Sodium 10 mg 12/16/22 07:30 12/16/22 08:20 Montelukast Sodium 10 Mg Tablet PO Not Given BEDTIME YULY Discontinued Medications Generic Name Dose Route Start Last Admin Trade Name Freq PRN Reason Stop Dose Admin Charcoal 50 gm 12/15/22 19:44 12/15/22 20:24 Activated Charcoal 50 Gm/240 Ml Oral.Susp PO 12/15/22 19:45 50 gm ONCE ONE Administration Sodium Chloride 1,000 mls @ 999 mls/hr 12/15/22 19:45 12/15/22 21:20 Ns IVCONT 12/15/22 20:45 Infused .Q1H1M YULY Infusion <Rosario Murry NP - Last Filed: 12/16/22 02:03> Medications Administered Generic Name Dose Route Start Last Admin Trade Name Freq PRN Reason Stop Dose Admin Atorvastatin Calcium 10 mg 12/16/22 09:00 12/16/22 08:07 Atorvastatin Calcium 10 Mg Tablet PO 10 mg DAILY YULY Administration Fluoxetine HCl 60 mg 12/16/22 09:00 12/16/22 08:07 Fluoxetine Hcl 20 Mg Capsule PO 60 mg DAILY YULY Administration Fluphenazine HCl 5 mg 12/16/22 07:30 12/16/22 08:07 Fluphenazine Hcl 5 Mg Tablet PO 5 mg BEDTIME YULY Administration Lisinopril 5 mg 12/16/22 09:00 12/16/22 08:07 Lisinopril 5 Mg Tablet PO 5 mg DAILY YULY Administration Protocol Metformin HCl 500 mg 12/16/22 09:00 12/16/22 08:07 Metformin Hcl 500 Mg Tablet PO 500 mg BID YULY Administration Montelukast Sodium 10 mg 12/16/22 07:30 12/16/22 08:20 Montelukast Sodium 10 Mg Tablet PO Not Given BEDTIME YULY Discontinued Medications Generic Name Dose Route Start Last Admin Trade Name Bradleyq PRN Reason Stop Dose Admin Charcoal 50 gm 12/15/22 19:44 12/15/22 20:24 Activated Charcoal 50 Gm/240 Ml Oral.Susp PO 12/15/22 19:45 50 gm ONCE ONE Administration Sodium Chloride 1,000 mls @ 999 mls/hr 12/15/22 19:45 12/15/22 21:20 Ns IVCONT 12/15/22 20:45 Infused .Q1H1M YULY Infusion <Sy Allison MD - Last Filed: 12/16/22 09:17> Medical Decision Making Differential Diagnosis Differential Diagnoses: The differential diagnosis associated with the presentation includes <Rosario Murry NP - Last Filed: 12/16/22 02:03> Overdose, Tylenol toxicity <Rosario Murry NP - Last Filed: 12/16/22 02:03> Overdose, Tylenol toxicity, major depression, acute psychosis. <Sy Allison MD - Last Filed: 12/16/22 09:17> Admission/Observation Consideration of admission/observation: Escalation of care including admission/observation considered <Rosario Murry NP - Last Filed: 12/16/22 02:03> Possible M5 admission Possible floor admission of Tylenol levels are toxic <Rosario Murry NP - Last Filed: 12/16/22 02:03> Consult Healthcare Provider Management of the patient was discussed with: Behavioral Health Provider <Rosario Murry NP - Last Filed: 12/16/22 02:03> Lab Data MDM Lab Attestation statement: I reviewed the patient's lab results. <Rosario Murry NP - Last Filed: 12/16/22 02:03> Result Diagrams: 12/15/22 20:01 12/15/22 20:01 <Rosario Murry NP - Last Filed: 12/16/22 02:03> Labs: Lab Results 12/15/22 12/15/22 12/15/22 Range/Units 20:01 20:01 20:01 WBC 7.5 (4.8-10.8) X10*3/uL RBC 4.18 L (4.20-5.50) X10*6/uL Hgb 11.0 L (12.0-16.0) g/dl Hct 36.0 L (37.0-47.0) % MCV 86.1 (80.0-98.0) fL MCH 26.3 L (27.0-33.0) pg MCHC 30.6 L (31.0-35.0) g/dl RDW 16.1 H (11.0-16.0) % Plt Count 335 (160-400) X10*3/uL MPV 9.5 (9.4-12.3) fL Immature Gran % (Auto) 0.5 H (0.0-0.4) % Neut % (Auto) 56.7 (45-73) % Lymph % (Auto) 27.7 (20-40) % [place] % (Auto) 8.2 (2-11) % Eos % (Auto) 6.4 H (0-4) % Baso % (Auto) 0.5 (0-2) % Lymph # (Auto) 2.1 (1.2-4.9) X10*3/uL [place] # (Auto) 0.6 (0.1-1.2) X10*3/uL Eos # (Auto) 0.5 H (0.0-0.4) X10*3/uL Baso # (Auto) 0.0 (0.0-0.2) X10*3/uL Abs Immat Gran (auto) 0.04 H (0.00-0.03) X10*3/uL Absolute Neuts (auto) 4.3 (2.0-8.3) x10*3/uL Absolute Nucleated RBC 0.000 (0.0-0.012) X10*3/uL Nucleated RBC % (auto) 0.0 (0.0-0.2) /100WBC PT 11.0 (10.0-13.1) SEC INR 1.0 (0.9-1.1) Sodium 139 (135-145) mmol/L Potassium 3.7 (3.3-5.1) mmol/L Chloride 103 (96-108) mmol/L Carbon Dioxide 26 (22-29) mmol/L Anion Gap 14 (12-20) BUN 8 L (9-16) mg/dL Creatinine 0.85 (0.5-1.4) mg/dL Estim Creat Clear Calc 95.1 Estimated GFR > 60 Random Glucose 103 (60-115) mg/dL Calcium 9.1 (8.4-10.2) mg/dL Total Bilirubin 0.2 (0.0-1.0) mg/dL Direct Bilirubin < 0.2 (0.0-0.5) mg/dL AST 17 (5-31) U/L ALT 15 (0-31) U/L Alkaline Phosphatase 116 (39-117) U/L Total Protein 7.1 (6.5-8.0) g/dL Albumin 4.5 (3.5-5.0) g/dL Lipase 23 (8-78) U/L Salicylates < 5.0 L (15-30) mg/dL Urine Opiates Screen (Not Detect) Urine Fentanyl Screen (Not Detect) Acetaminophen 24 (<30) mcg/mL Ur Barbiturates Screen (Not Detect) Ur Phencyclidine Scrn (Not Detect) Ur Amphetamines Screen (Not Detect) U Benzodiazepines Scrn (Not Detect) Urine Cocaine Screen (Not Detect) U Marijuana (THC) Screen (Not Detect) Ethyl Alcohol < 10 mg/dL Influenza Type A (PCR) (Negative) Influenza Type B (PCR) (Negative) RSV RNA Qual (PCR) (Negative) SARS-CoV-2 RNA (RT-PCR) (Negative) 12/15/22 12/15/22 12/15/22 Range/Units 20:02 22:29 23:44 WBC (4.8-10.8) X10*3/uL RBC (4.20-5.50) X10*6/uL Hgb (12.0-16.0) g/dl Hct (37.0-47.0) % MCV (80.0-98.0) fL MCH (27.0-33.0) pg MCHC (31.0-35.0) g/dl RDW (11.0-16.0) % Plt Count (160-400) X10*3/uL MPV (9.4-12.3) fL Immature Gran % (Auto) (0.0-0.4) % Neut % (Auto) (45-73) % Lymph % (Auto) (20-40) % [place] % (Auto) (2-11) % Eos % (Auto) (0-4) % Baso % (Auto) (0-2) % Lymph # (Auto) (1.2-4.9) X10*3/uL [place] # (Auto) (0.1-1.2) X10*3/uL Eos # (Auto) (0.0-0.4) X10*3/uL Baso # (Auto) (0.0-0.2) X10*3/uL Abs Immat Gran (auto) (0.00-0.03) X10*3/uL Absolute Neuts (auto) (2.0-8.3) x10*3/uL Absolute Nucleated RBC (0.0-0.012) X10*3/uL Nucleated RBC % (auto) (0.0-0.2) /100WBC PT (10.0-13.1) SEC INR (0.9-1.1) Sodium (135-145) mmol/L Potassium (3.3-5.1) mmol/L Chloride (96-108) mmol/L Carbon Dioxide (22-29) mmol/L Anion Gap (12-20) BUN (9-16) mg/dL Creatinine (0.5-1.4) mg/dL Estim Creat Clear Calc Estimated GFR Random Glucose (60-115) mg/dL Calcium (8.4-10.2) mg/dL Total Bilirubin (0.0-1.0) mg/dL Direct Bilirubin (0.0-0.5) mg/dL AST (5-31) U/L ALT (0-31) U/L Alkaline Phosphatase (39-117) U/L Total Protein (6.5-8.0) g/dL Albumin (3.5-5.0) g/dL Lipase (8-78) U/L Salicylates (15-30) mg/dL Urine Opiates Screen Not Detected (Not Detect) Urine Fentanyl Screen Not Detected (Not Detect) Acetaminophen < 17 (<30) mcg/mL Ur Barbiturates Screen Not Detected (Not Detect) Ur Phencyclidine Scrn Not Detected (Not Detect) Ur Amphetamines Screen Not Detected (Not Detect) U Benzodiazepines Scrn Not Detected (Not Detect) Urine Cocaine Screen Not Detected (Not Detect) U Marijuana (THC) Screen Not Detected (Not Detect) Ethyl Alcohol mg/dL Influenza Type A (PCR) NEGATIVE (Negative) Influenza Type B (PCR) NEGATIVE (Negative) RSV RNA Qual (PCR) NEGATIVE (Negative) SARS-CoV-2 RNA (RT-PCR) NEGATIVE (Negative) 12/16/22 Range/Units 01:22 WBC (4.8-10.8) X10*3/uL RBC (4.20-5.50) X10*6/uL Hgb (12.0-16.0) g/dl Hct (37.0-47.0) % MCV (80.0-98.0) fL MCH (27.0-33.0) pg MCHC (31.0-35.0) g/dl RDW (11.0-16.0) % Plt Count (160-400) X10*3/uL MPV (9.4-12.3) fL Immature Gran % (Auto) (0.0-0.4) % Neut % (Auto) (45-73) % Lymph % (Auto) (20-40) % [place] % (Auto) (2-11) % Eos % (Auto) (0-4) % Baso % (Auto) (0-2) % Lymph # (Auto) (1.2-4.9) X10*3/uL [place] # (Auto) (0.1-1.2) X10*3/uL Eos # (Auto) (0.0-0.4) X10*3/uL Baso # (Auto) (0.0-0.2) X10*3/uL Abs Immat Gran (auto) (0.00-0.03) X10*3/uL Absolute Neuts (auto) (2.0-8.3) x10*3/uL Absolute Nucleated RBC (0.0-0.012) X10*3/uL Nucleated RBC % (auto) (0.0-0.2) /100WBC PT (10.0-13.1) SEC INR (0.9-1.1) Sodium (135-145) mmol/L Potassium (3.3-5.1) mmol/L Chloride (96-108) mmol/L Carbon Dioxide (22-29) mmol/L Anion Gap (12-20) BUN (9-16) mg/dL Creatinine (0.5-1.4) mg/dL Estim Creat Clear Calc Estimated GFR Random Glucose (60-115) mg/dL Calcium (8.4-10.2) mg/dL Total Bilirubin (0.0-1.0) mg/dL Direct Bilirubin (0.0-0.5) mg/dL AST (5-31) U/L ALT (0-31) U/L Alkaline Phosphatase (39-117) U/L Total Protein (6.5-8.0) g/dL Albumin (3.5-5.0) g/dL Lipase (8-78) U/L Salicylates (15-30) mg/dL Urine Opiates Screen (Not Detect) Urine Fentanyl Screen (Not Detect) Acetaminophen < 17 (<30) mcg/mL Ur Barbiturates Screen (Not Detect) Ur Phencyclidine Scrn (Not Detect) Ur Amphetamines Screen (Not Detect) U Benzodiazepines Scrn (Not Detect) Urine Cocaine Screen (Not Detect) U Marijuana (THC) Screen (Not Detect) Ethyl Alcohol mg/dL Influenza Type A (PCR) (Negative) Influenza Type B (PCR) (Negative) RSV RNA Qual (PCR) (Negative) SARS-CoV-2 RNA (RT-PCR) (Negative) <Rosario Murry NP - Last Filed: 12/16/22 02:03> Lab Results 12/15/22 12/15/22 12/15/22 Range/Units 20:01 20:01 20:01 WBC 7.5 (4.8-10.8) X10*3/uL RBC 4.18 L (4.20-5.50) X10*6/uL Hgb 11.0 L (12.0-16.0) g/dl Hct 36.0 L (37.0-47.0) % MCV 86.1 (80.0-98.0) fL MCH 26.3 L (27.0-33.0) pg MCHC 30.6 L (31.0-35.0) g/dl RDW 16.1 H (11.0-16.0) % Plt Count 335 (160-400) X10*3/uL MPV 9.5 (9.4-12.3) fL Immature Gran % (Auto) 0.5 H (0.0-0.4) % Neut % (Auto) 56.7 (45-73) % Lymph % (Auto) 27.7 (20-40) % [place] % (Auto) 8.2 (2-11) % Eos % (Auto) 6.4 H (0-4) % Baso % (Auto) 0.5 (0-2) % Lymph # (Auto) 2.1 (1.2-4.9) X10*3/uL [place] # (Auto) 0.6 (0.1-1.2) X10*3/uL Eos # (Auto) 0.5 H (0.0-0.4) X10*3/uL Baso # (Auto) 0.0 (0.0-0.2) X10*3/uL Abs Immat Gran (auto) 0.04 H (0.00-0.03) X10*3/uL Absolute Neuts (auto) 4.3 (2.0-8.3) x10*3/uL Absolute Nucleated RBC 0.000 (0.0-0.012) X10*3/uL Nucleated RBC % (auto) 0.0 (0.0-0.2) /100WBC PT 11.0 (10.0-13.1) SEC INR 1.0 (0.9-1.1) Sodium 139 (135-145) mmol/L Potassium 3.7 (3.3-5.1) mmol/L Chloride 103 (96-108) mmol/L Carbon Dioxide 26 (22-29) mmol/L Anion Gap 14 (12-20) BUN 8 L (9-16) mg/dL Creatinine 0.85 (0.5-1.4) mg/dL Estim Creat Clear Calc 95.1 Estimated GFR > 60 Random Glucose 103 (60-115) mg/dL Calcium 9.1 (8.4-10.2) mg/dL Total Bilirubin 0.2 (0.0-1.0) mg/dL Direct Bilirubin < 0.2 (0.0-0.5) mg/dL AST 17 (5-31) U/L ALT 15 (0-31) U/L Alkaline Phosphatase 116 (39-117) U/L Total Protein 7.1 (6.5-8.0) g/dL Albumin 4.5 (3.5-5.0) g/dL Lipase 23 (8-78) U/L Salicylates < 5.0 L (15-30) mg/dL Urine Opiates Screen (Not Detect) Urine Fentanyl Screen (Not Detect) Acetaminophen 24 (<30) mcg/mL Ur Barbiturates Screen (Not Detect) Ur Phencyclidine Scrn (Not Detect) Ur Amphetamines Screen (Not Detect) U Benzodiazepines Scrn (Not Detect) Urine Cocaine Screen (Not Detect) U Marijuana (THC) Screen (Not Detect) Ethyl Alcohol < 10 mg/dL Influenza Type A (PCR) (Negative) Influenza Type B (PCR) (Negative) RSV RNA Qual (PCR) (Negative) SARS-CoV-2 RNA (RT-PCR) (Negative) 12/15/22 12/15/22 12/15/22 Range/Units 20:02 22:29 23:44 WBC (4.8-10.8) X10*3/uL RBC (4.20-5.50) X10*6/uL Hgb (12.0-16.0) g/dl Hct (37.0-47.0) % MCV (80.0-98.0) fL MCH (27.0-33.0) pg MCHC (31.0-35.0) g/dl RDW (11.0-16.0) % Plt Count (160-400) X10*3/uL MPV (9.4-12.3) fL Immature Gran % (Auto) (0.0-0.4) % Neut % (Auto) (45-73) % Lymph % (Auto) (20-40) % [place] % (Auto) (2-11) % Eos % (Auto) (0-4) % Baso % (Auto) (0-2) % Lymph # (Auto) (1.2-4.9) X10*3/uL [place] # (Auto) (0.1-1.2) X10*3/uL Eos # (Auto) (0.0-0.4) X10*3/uL Baso # (Auto) (0.0-0.2) X10*3/uL Abs Immat Gran (auto) (0.00-0.03) X10*3/uL Absolute Neuts (auto) (2.0-8.3) x10*3/uL Absolute Nucleated RBC (0.0-0.012) X10*3/uL Nucleated RBC % (auto) (0.0-0.2) /100WBC PT (10.0-13.1) SEC INR (0.9-1.1) Sodium (135-145) mmol/L Potassium (3.3-5.1) mmol/L Chloride (96-108) mmol/L Carbon Dioxide (22-29) mmol/L Anion Gap (12-20) BUN (9-16) mg/dL Creatinine (0.5-1.4) mg/dL Estim Creat Clear Calc Estimated GFR Random Glucose (60-115) mg/dL Calcium (8.4-10.2) mg/dL Total Bilirubin (0.0-1.0) mg/dL Direct Bilirubin (0.0-0.5) mg/dL AST (5-31) U/L ALT (0-31) U/L Alkaline Phosphatase (39-117) U/L Total Protein (6.5-8.0) g/dL Albumin (3.5-5.0) g/dL Lipase (8-78) U/L Salicylates (15-30) mg/dL Urine Opiates Screen Not Detected (Not Detect) Urine Fentanyl Screen Not Detected (Not Detect) Acetaminophen < 17 (<30) mcg/mL Ur Barbiturates Screen Not Detected (Not Detect) Ur Phencyclidine Scrn Not Detected (Not Detect) Ur Amphetamines Screen Not Detected (Not Detect) U Benzodiazepines Scrn Not Detected (Not Detect) Urine Cocaine Screen Not Detected (Not Detect) U Marijuana (THC) Screen Not Detected (Not Detect) Ethyl Alcohol mg/dL Influenza Type A (PCR) NEGATIVE (Negative) Influenza Type B (PCR) NEGATIVE (Negative) RSV RNA Qual (PCR) NEGATIVE (Negative) SARS-CoV-2 RNA (RT-PCR) NEGATIVE (Negative) 12/16/22 Range/Units 01:22 WBC (4.8-10.8) X10*3/uL RBC (4.20-5.50) X10*6/uL Hgb (12.0-16.0) g/dl Hct (37.0-47.0) % MCV (80.0-98.0) fL MCH (27.0-33.0) pg MCHC (31.0-35.0) g/dl RDW (11.0-16.0) % Plt Count (160-400) X10*3/uL MPV (9.4-12.3) fL Immature Gran % (Auto) (0.0-0.4) % Neut % (Auto) (45-73) % Lymph % (Auto) (20-40) % [place] % (Auto) (2-11) % Eos % (Auto) (0-4) % Baso % (Auto) (0-2) % Lymph # (Auto) (1.2-4.9) X10*3/uL [place] # (Auto) (0.1-1.2) X10*3/uL Eos # (Auto) (0.0-0.4) X10*3/uL Baso # (Auto) (0.0-0.2) X10*3/uL Abs Immat Gran (auto) (0.00-0.03) X10*3/uL Absolute Neuts (auto) (2.0-8.3) x10*3/uL Absolute Nucleated RBC (0.0-0.012) X10*3/uL Nucleated RBC % (auto) (0.0-0.2) /100WBC PT (10.0-13.1) SEC INR (0.9-1.1) Sodium (135-145) mmol/L Potassium (3.3-5.1) mmol/L Chloride (96-108) mmol/L Carbon Dioxide (22-29) mmol/L Anion Gap (12-20) BUN (9-16) mg/dL Creatinine (0.5-1.4) mg/dL Estim Creat Clear Calc Estimated GFR Random Glucose (60-115) mg/dL Calcium (8.4-10.2) mg/dL Total Bilirubin (0.0-1.0) mg/dL Direct Bilirubin (0.0-0.5) mg/dL AST (5-31) U/L ALT (0-31) U/L Alkaline Phosphatase (39-117) U/L Total Protein (6.5-8.0) g/dL Albumin (3.5-5.0) g/dL Lipase (8-78) U/L Salicylates (15-30) mg/dL Urine Opiates Screen (Not Detect) Urine Fentanyl Screen (Not Detect) Acetaminophen < 17 (<30) mcg/mL Ur Barbiturates Screen (Not Detect) Ur Phencyclidine Scrn (Not Detect) Ur Amphetamines Screen (Not Detect) U Benzodiazepines Scrn (Not Detect) Urine Cocaine Screen (Not Detect) U Marijuana (THC) Screen (Not Detect) Ethyl Alcohol mg/dL Influenza Type A (PCR) (Negative) Influenza Type B (PCR) (Negative) RSV RNA Qual (PCR) (Negative) SARS-CoV-2 RNA (RT-PCR) (Negative) <Sy Allison MD - Last Filed: 12/16/22 09:17> Independent Interpretation I performed an independent interpretation of an: EKG and Plain X-Ray <Rosario Murry NP - Last Filed: 12/16/22 02:03> Interpretation: Normal sinus rhythm Normal ECG When compared with ECG of 23-SEP-2022 17:27, No significant change was found Vent. rate 88 BPM ND interval 166 ms QRS duration 82 ms QT/QTc 372/450 ms P-R-T axes 63 52 55 15-DEC-2022 20:13:14 Normal sinus rhythm Normal ECG When compared with ECG of 15-DEC-2022 20:13, No significant change was found Vent. rate 85 BPM ND interval 182 ms QRS duration 86 ms QT/QTc 392/466 ms P-R-T axes 50 30 51 15-DEC-2022 22:20:59 <Rosario Murry NP - Last Filed: 12/16/22 02:03> Radiology Impression Discussion of test interpretation with radiology: I have reviewed the radiologist's reading. <Rosario Murry NP - Last Filed: 12/16/22 02:03> Radiologist Impression: EXAMINATION: XR CHEST CLINICAL INFORMATION: Overdose COMPARISON: Chest x-ray on 03/21/2022 TECHNIQUE: Frontal view of the chest was obtained. FINDINGS: The cardiac silhouette is normal. There is mild diffuse bronchial wall thickening. There are no areas of consolidation. There are no pleural effusions or pneumothoraces. The bones and soft tissues are unremarkable for the patient's age. XR/XR chest 1V IMPRESSION: Bronchial wall thickening may be infectious and/or inflammatory in etiology. ? <Rosario Murry NP - Last Filed: 12/16/22 02:03> External Record Review External record reviewed: Inpatient record, Outpatient record and Prior outpatient labs <JUN Willis Last Filed: 12/16/22 02:03> Social Determinants Patient?s care significantly limited by Social Determinants of Health including: Other Social Determinant of Health <Rosario Murry NP - Last Filed: 12/16/22 02:03> Critical Care Time Critical Care Time Critical Care Time: Yes <Rosario Murry NP - Last Filed: 12/16/22 02:03> Total Critical Care Time: 65 <Rosario Murry NP - Last Filed: 12/16/22 02:03> Attestation: I have personally provided critical care time exclusive of time spent on separately billable procedures. Time includes review of laboratory data, radiology results, discussion with consultants, and monitoring for potential decompensation. Interventions were performed as documented. <Rosario Murry NP - Last Filed: 12/16/22 02:03> Discharge Plan Discharge Clinical Impression: Suicide attempt <Rosario Murry NP - Last Filed: 12/16/22 02:03> Patient Disposition: Home, Self-Care <Rosario Murry NP - Last Filed: 12/16/22 02:03> Instructions: Suicide Prevention (ED) <JUN Willis Last Filed: 12/16/22 02:03> Prescriptions: No Action metformin 500 mg tablet 1 tab PO BID atorvastatin 10 mg tablet 10 mg PO DAILY montelukast 10 mg tablet 1 tab PO BEDTIME chlorpromazine 25 mg tablet 3 tab PO DAILY@1700 nicotine (polacrilex) 4 mg gum 1 ea PO Q2H PRN (Reason: Smoking Cessation) lisinopril 5 mg tablet 1 tab PO DAILY fluoxetine 20 mg capsule 60 mg PO DAILY prazosin 1 mg Capsule 4 mg PO BEDTIME 30 Days Qty: 120 0RF Protocol: Hold for SBP< HOLD for SBP < : 90 fluphenazine HCl 5 mg tablet 1 tab PO BEDTIME sennosides [senna] 8.6 mg Tablet 8.6 mg PO BEDTIME PRN (Reason: Constipation) trazodone 150 mg tablet 1 tab PO BEDTIME <Rosario Murry NP - Last Filed: 12/16/22 02:03> Referrals: [facility] [Other] <Rosario Murry NP - Last Filed: 12/16/22 02:03> Interventions: [place]-Suicide Risk Severity Scale Last Done: 12/16/22 03:06 <Rosario Murry NP - Last Filed: 12/16/22 02:03>
--- NOTE | 2022-12-15 19:44 | ECG_ITS ---
Test Reason : OVERDOSE Blood Pressure : / mmHG Vent. Rate : 088 BPM Atrial Rate : 088 BPM P-R Int : 166 ms QRS Dur : 082 ms QT Int : 372 ms P-R-T Axes : 063 052 055 degrees QTc Int : 450 ms Normal sinus rhythm Normal ECG When compared with ECG of 23-SEP-2022 17:27, No significant change was found Referred By: Rosario Murry Electronically Signed By:DONALD HOOKER MD
[2022-12-15 19:56] VITALS: BP 155/89; PULSE 100; RESP 20; TEMP 36.8; O2SAT 98
[2022-12-15 20:03] VITALS: BP 124/78; PULSE 96; O2SAT 98; BMI 37.1
[2022-12-15 20:06] LABS: MANUAL DIFF FLAG NO
[2022-12-15 20:14] LABS: Basophils Percent Auto 0.5 % (0-2); Eosinophils Absolute Auto 0.5 X10*3/uL (0.0-0.4); Eosinophils Percent Auto 6.4 % (0-4); Imm Gran Abs Auto 0.04 X10*3/uL (0.00-0.03); Imm Gran Pct Auto 0.5 % (0.0-0.4); Lymphocytes Absolute Auto 2.1 X10*3/uL (1.2-4.9); Lymphocytes Percent Auto 27.7 % (20-40); Mean Corpuscular HGB Conc 30.6 g/dl (31.0-35.0); Mean Corpuscular Hemoglobin 26.3 pg (27.0-33.0); Mean Corpuscular Volume 86.1 fL (80.0-98.0); Mean Platelet Volume 9.5 fL (9.4-12.3); Monocytes Absolute Auto 0.6 X10*3/uL (0.1-1.2); Monocytes Percent Auto 8.2 % (2-11); Neutrophils Absolute Auto 4.3 x10*3/uL (2.0-8.3); Neutrophils Percent Auto 56.7 % (45-73); Platelet Count 335 X10*3/uL (160-400); Red Blood Count 4.18 X10*6/uL (4.20-5.50); Red Cell Distribution Width 16.1 % (11.0-16.0); White Blood Count 7.5 X10*3/uL (4.8-10.8)
[2022-12-15] MEDS: 0.9 % Sodium Chloride 1,000 ML 999 ML IVCONT (20:17)
[2022-12-15] MEDS: Activated charcoaL 50 GM/240 ML ORAL.SUSP PO (20:24)
[2022-12-15 20:26] LABS: Acetaminophen LAB 24 mcg/mL (<30); Alanine Aminotransferase 15 U/L (0-31); Albumin Level 4.5 g/dL (3.5-5.0); Alkaline Phosphatase 116 U/L (39-117); Anion Gap 14 (12-20); Aspartate Amino Transferase 17 U/L (5-31); Bilirubin Direct < 0.2 mg/dL (0.0-0.5); Bilirubin Total 0.2 mg/dL (0.0-1.0); Blood Urea Nitrogen 8 mg/dL (9-16); Calcium 9.1 mg/dL (8.4-10.2); Carbon Dioxide 26 mmol/L (22-29); Chloride 103 mmol/L (96-108); Creatinine Clr Calc Pharmacy 95.1; Estimated Glomerular Filt Rate > 60; Ethanol < 10 mg/dL; Glucose Random 103 mg/dL (60-115); Lipase 23 U/L (8-78); Potassium 3.7 mmol/L (3.3-5.1); Salicylate < 5.0 mg/dL (15-30); Sodium 139 mmol/L (135-145); Total Protein 7.1 g/dL (6.5-8.0)
--- NOTE | 2022-12-15 20:41 | PC.NURSE ---
Pt A&Ox3, awake, reports taking 12 cold & flu nighttime softgels, states the voices told me to hurt myself . Pt placed on bedside monitor, changed over to hospital attire, belongings secured, 1:1 staff at bedside. IV line placed, blood work drawn and sent to lab. Insta-sohail given, Pt tolerating with one episode of vomiting. EKG obtained. Poison control called, spoke to Mark, recommendation of Tylenol levels q4h x1 and then q6 x1 with EKGs q2h x2. Will CTM.
[2022-12-15 20:50] LABS: Influenza A PCR NEGATIVE (Negative); Influenza B PCR NEGATIVE (Negative); Resp Syncy Virus RNA Qual PCR NEGATIVE (Negative); SARS COV2 PCR INHOUSE NEGATIVE (Negative)
--- NOTE | 2022-12-15 22:00 | ECG_ITS ---
Test Reason : OVERDOSE Blood Pressure : / mmHG Vent. Rate : 085 BPM Atrial Rate : 085 BPM P-R Int : 182 ms QRS Dur : 086 ms QT Int : 392 ms P-R-T Axes : 050 030 051 degrees QTc Int : 466 ms Normal sinus rhythm Normal ECG When compared with ECG of 15-DEC-2022 20:13, No significant change was found Referred By: Rosario Murry Electronically Signed By:DONALD HOOKER MD
[2022-12-15 22:18] VITALS: BP 114/63; PULSE 91; RESP 21; TEMP 36.8; O2SAT 93
[2022-12-15 22:57] LABS: Amphetamine Screen Urine Not Detected (Not Detect); Barbiturates, Urine Not Detected (Not Detect); Benzodiazepines Screen Urine Not Detected (Not Detect); Cannabinoid Screen Urine Not Detected (Not Detect); Cocaine Screen Urine Not Detected (Not Detect); Fentanyl, urine Not Detected (Not Detect); Opiate Screen Urine Not Detected (Not Detect); Phencyclidine Screen Urine Not Detected (Not Detect)
[2022-12-15 23:44] VITALS: BP 119/67; PULSE 80; RESP 18; TEMP 36.8; O2SAT 97
--- NOTE | 2022-12-15 23:45 | MHC.EDTECH ---
0000 this pt assumed care of pt at 2300 ,this pct is providing 1: 1 with patient ,vitals sign taken ,repeated labs drawn and sent to lab .,pt is sleeping at this time .
[2022-12-16 00:07] LABS: Acetaminophen LAB < 17 mcg/mL (<30)
--- NOTE | 2022-12-16 01:23 | PC.NURSE ---
Pt awake and alert, continues to hear voices telling her to hurt myself . Denies HI, denies visual hallucinations. 1:1 staff at bedside.
[2022-12-16 01:50] LABS: Acetaminophen LAB < 17 mcg/mL (<30)
[2022-12-16 02:12] VITALS: BP 142/86; PULSE 86; RESP 17; TEMP 36.7; O2SAT 96
--- NOTE | 2022-12-16 03:22 | PC.NURSE ---
Patient was moved to ED POD at 0215 after medically cleared by the provider, poison control also cleared the patient, patient is currently in bed appears sleeping, no distress observed/reported at this time, med rec completed/pending provider's approval, behavior non concerning, care consult ordered/pending evaluation, VSS, will continue to monitor.
[2022-12-16 07:53] VITALS: BP 136/89; PULSE 90; RESP 18; TEMP 36.1; O2SAT 97
[2022-12-16] MEDS: lisinopriL 5 MG TABLET PO (08:07)
[2022-12-16] MEDS: metFORMIN HCl 500 MG TABLET PO (08:07)
[2022-12-16] MEDS: Atorvastatin Calcium 10 MG TABLET PO (08:07)
[2022-12-16] MEDS: FLUoxetine HCl 20 MG CAPSULE 60 MG PO (08:07)
[2022-12-16] MEDS: fluPHENAZine HCl 5 MG TABLET PO (08:07)
== END 2022-12-16 10:00 | disposition home or self-care (01) ==
PROVIDERS: Nurse Practitioner Family; Emergency Provider Student in an Organized Health Care Education/Training Program
DX: T45.0X2A Poisoning by antiallergic and antiemetic drugs, intentional self-harm, initial encounter (principal); F33.1 Major depressive disorder, recurrent, moderate; R45.851 Suicidal ideations; Y92.9 Unspecified place or not applicable; F12.10 Cannabis abuse, uncomplicated; F17.210 Nicotine dependence, cigarettes, uncomplicated; Z20.822 Contact with and (suspected) exposure to COVID-19; Z20.828 Contact with and (suspected) exposure to other viral communicable diseases; Z71.6 Tobacco abuse counseling; Z79.899 Other long term (current) drug therapy
CPT/HCPCS: 0241U; 36415; 71045; 80048; 80076; 80143; 80179; 80307; 82077; 83690; 85025; 85610; 93005; 96360; 99285

== ENCOUNTER 2022-12-19 17:11 | Emergency (ER) | payer MEDICARE, MEDICAID, SELFPAY ==
[2022-12-19 17:16] VITALS: BP 133/80; PULSE 78; O2SAT 100
[2022-12-19 17:17] VITALS: BP 153/104; PULSE 112; RESP 18; TEMP 36.5; O2SAT 98; BMI 37.0
--- NOTE | 2022-12-19 17:38 | ED_ITS ---
HPI - Psych General Chief Complaint: Psychiatric Symptoms Stated Complaint: SI FRP GRP HOME PER EMS Time Seen by Provider: 12/19/22 17:16 Source: patient Mode of arrival: ambulatory Limitations: no limitations History of Present Illness HPI Narrative: This is a 47-year-old female history of bipolar to with mauling colic features, depression, PTSD, diabetes, GERD, suicide attempts presenting to the emergency department with suicidal ideation and and command hallucinations, patient tells me voices are telling her to cut herself so she can . She reports increasing life stressors, she tells me she feels very depressed and suicidal at this time. She reports visual and auditory hallucinations, seeing shadows were telling her to harm herself. Denies tactile hallucinations. Denies drugs, alcohol and tobacco. No medical complaints. Related Data Home Medications Medication Instructions Recorded Confirmed atorvastatin 10 mg tablet 10 mg PO DAILY 05/29/21 12/19/22 metformin 500 mg tablet 1 tab PO BID 05/29/21 12/19/22 montelukast 10 mg tablet 1 tab PO BEDTIME 05/29/21 12/16/22 fluphenazine HCl 5 mg tablet 1 tab PO BEDTIME 03/19/22 12/19/22 chlorpromazine 25 mg tablet 3 tab PO DAILY@1700 06/17/22 12/16/22 fluoxetine 20 mg capsule 80 mg PO DAILY 07/30/22 12/19/22 lisinopril 5 mg tablet 1 tab PO DAILY 07/30/22 12/19/22 nicotine (polacrilex) 4 mg gum 1 ea PO Q2H PRN Smoking Cessation 07/30/22 12/16/22 sennosides 8.6 mg tablet (senna) 8.6 mg PO BEDTIME PRN Constipation 09/11/22 12/16/22 trazodone 150 mg tablet 1 tab PO BEDTIME 09/23/22 12/19/22 Flovent 12/19/22 benztropine 1 mg tablet 1 mg PO BID 12/19/22 12/19/22 benztropine 1 mg tablet mg 12/19/22 ferrous sulfate 325 mg (65 mg 325 mg PO DAILY 12/19/22 12/19/22 iron) tablet montelukast 10 mg tablet 10 mg PO BEDTIME 12/19/22 12/19/22 (Singulair) norethindrone (contraceptive) 0.35 mg 12/19/22 mg tablet verapamil 240 mg 24 hr 240 mg PO DAILY 12/19/22 12/19/22 capsule,extended release Previous Rx's Medication Instructions Recorded prazosin 1 mg capsule 4 mg PO BEDTIME 30 days #120 caps 10/18/21 Allergies Allergy/AdvReac Type Severity Reaction Status Date / Time Fish Containing Products Allergy Severe ANAPHYLAXIS Verified 12/19/22 17:28 codeine [Codeine] Allergy Intermediate RASH Verified 12/19/22 17:28 Penicillins Allergy Intermediate RASH Verified 12/19/22 17:28 prednisone [Prednisone] Allergy Intermediate RASH Verified 12/19/22 17:28 Sulfa (Sulfonamide Allergy Intermediate RASH Verified 12/19/22 17:28 Antibiotics) [Sulfa (Sulfonamides)] azithromycin [AZITHROMYCIN] AdvReac Severe RASH Verified 12/19/22 17:28 ziprasidone [From Geodon] AdvReac Intermediate dysuria, Verified 12/19/22 17:28 rash Review of Systems Review of Systems: Constitutional : No Fever, No Chills ENT/Mouth : No Ear Pain, No Nasal Congestion, No sore throat Eyes: No Eye Pain, No Swelling, No Redness Cardiovascular : No Chest Pain, No SOB Respiratory : No Cough, No Sputum, No Dyspnea Gastrointestinal : No Nausea, No Vomiting, No Diarrhea, No Hematochezia, No Melena Genitourinary : No Dysuria, No Urinary Frequency, No Hematuria Musculoskeletal : No Myalgias Skin : No Skin Lesions, No rash Neuro : No Weakness, No Numbness, No Paresthesias, No Dizziness, No Headache Psych : positive Anxiety, positive Depression, positive SI/HI All other systems reviewed and are negative Yes all other systems are reviewed and are negative [facility] Past Medical History Attestation statement: The following information was validated with the patient. 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: Other Household Members Other:: correction Housing: Other Housing Other:: correction Do you presently have visiting nurse or other home services: No Unable to assess alcohol history related to: Unknown Alcohol intake: never Patient Tobacco Use Status: Current everyday Tobacco user Tobacco use type: Cigarette Cigarette Packs Per Day: 1 Cigarettes Per Day: 16 Years Smoked: 20 e-Cigarette/Vaping Use: Never Used Substance Use Type: Marijuana Advance Directives: No Advance Directives Information Provided: Yes Healthcare Proxy: No Guardian: No service: No Current occupational status: unemployed and disabled Sexual orientation: Don't Know Physical Exam Vital Signs: Vital Signs: Last Vital Signs Temp 97.7 F 12/19/22 17:17 Pulse 112 H 12/19/22 17:17 Resp 18 12/19/22 17:17 BP 153/104 H 12/19/22 17:17 Pulse Ox 98 12/19/22 17:17 O2 Del Method 12/19/22 17:17 BMI result Body Mass Index 37.0 Vital signs stable, tachycardia likely secondary to acute anxiety. Appearance: Alert.? Oriented X3.? No acute distress.? Head: Normocephalic, atraumatic, no step-offs or deformities Eyes: Pupils equal, round and reactive to light.? ENT: Pharynx normal.? Neck: Normal inspection.? Neck supple.? CVS: Normal heart rate and rhythm.? Pulses normal.? Respiratory: No respiratory distress.? Breath sounds normal.? Abdomen: Soft and nontender.? Skin: Skin warm and dry.? Normal skin color.? Normal skin turgor.? Extremities: No lower extremity edema.? No calf ttp. 5/5 strength to bilateral upper and lower extremities Neuro: Oriented X 3.? No motor deficit.? No sensory deficit. CN 2-12 intact Course Reevaluation(s) Reevaluation #1: CBC appears to be around patient's baseline. Chemistry with no electrolyte abnormalities requiring intervention. Salicylates, acetaminophen negative. Urine toxicology negative. Patient COVID negative. Patient was evaluated by the care team, patient reports that she is no longer hearing voices, denying SI and HI. Like to go back to correction. Care team recommends that patient go back to correction, not meeting inpatient of care criteria. At time of discharge denies SI and HI, feeling better, stable vital signs. At this time patient will be discharged back to correction. Educated patient on diagnosis and treatment plan, answered all question, patient verbalizes understanding. At this time patient will be discharged home, advised to return with new or worsening symptoms. Educated on worrisome signs and symptoms and when to return. At this time I feel comfortable discharge home. Time: 20:25 Medical Decision Making Medical Decision Making [facility] Narrative: 192 47-year-old female presents with command auditory hallucinations, anxiety, depression x1 day. Physical exam benign Likely recurrent major depression, unlikely metabolic causes. Plan medical clearance evaluation by the behavioral health team. Differential Diagnosis Differential Diagnoses: The differential diagnosis associated with the presentation includes Likely recurrent major depression, unlikely metabolic causes. Admission/Observation Consideration of admission/observation: Escalation of care including admission/observation considered Consult Healthcare Provider Management of the patient was discussed with: Behavioral Health Provider Lab Data [facility] Lab Attestation statement: I reviewed the patient's lab results. 12/19/22 18:31 12/19/22 18:31 Labs: Lab Results 12/19/22 12/19/22 12/19/22 Range/Units 17:30 17:30 17:31 WBC (4.8-10.8) X10*3/uL RBC (4.20-5.50) X10*6/uL Hgb (12.0-16.0) g/dl Hct (37.0-47.0) % MCV (80.0-98.0) fL MCH (27.0-33.0) pg MCHC (31.0-35.0) g/dl RDW (11.0-16.0) % Plt Count MPV (9.4-12.3) fL Immature Gran % (Auto) (0.0-0.4) % Neut % (Auto) (45-73) % Lymph % (Auto) (20-40) % [place] % (Auto) (2-11) % Eos % (Auto) (0-4) % Baso % (Auto) (0-2) % Lymph # (Auto) (1.2-4.9) X10*3/uL [place] # (Auto) (0.1-1.2) X10*3/uL Eos # (Auto) (0.0-0.4) X10*3/uL Baso # (Auto) (0.0-0.2) X10*3/uL Abs Immat Gran (auto) (0.00-0.03) X10*3/uL Absolute Neuts (auto) (2.0-8.3) x10*3/uL Absolute Nucleated RBC (0.0-0.012) X10*3/uL Nucleated RBC % (auto) (0.0-0.2) /100WBC Smear Tech's Comments Sodium (135-145) mmol/L Potassium (3.3-5.1) mmol/L Chloride (96-108) mmol/L Carbon Dioxide (22-29) mmol/L Anion Gap (12-20) BUN (9-16) mg/dL Creatinine (0.5-1.4) mg/dL Estim Creat Clear Calc Estimated GFR Random Glucose (60-115) mg/dL Calcium (8.4-10.2) mg/dL Total Bilirubin (0.0-1.0) mg/dL AST (5-31) U/L ALT (0-31) U/L Alkaline Phosphatase (39-117) U/L Total Protein (6.5-8.0) g/dL Albumin (3.5-5.0) g/dL Urine Color Yellow Urine Appearance Clear Urine pH 6.0 (5.0-9.0) Ur Specific [place] <= 1.005 (1.005-1.025) Urine Protein Negative (Neg-Trace) mg/dL Urine Glucose (UA) Negative (Negative) mg/dL Urine Ketones Negative (Negative) mg/dL Urine Blood Negative (Negative) Urine Nitrite Negative (Negative) Ur Leukocyte Esterase Negative (Negative) Salicylates (15-30) mg/dL Urine Opiates Screen Not Detected (Not Detect) Urine Fentanyl Screen Not Detected (Not Detect) Acetaminophen (<30) mcg/mL Ur Barbiturates Screen Not Detected (Not Detect) Ur Phencyclidine Scrn Not Detected (Not Detect) Ur Amphetamines Screen Not Detected (Not Detect) U Benzodiazepines Scrn Not Detected (Not Detect) Urine Cocaine Screen Not Detected (Not Detect) U Marijuana (THC) Screen Not Detected (Not Detect) COVID-19 (NICK) Negative (Negative) COVID-19 Clin Com See Note 12/19/22 12/19/22 Range/Units 18:31 18:31 WBC 7.9 (4.8-10.8) X10*3/uL RBC 4.16 L (4.20-5.50) X10*6/uL Hgb 11.1 L (12.0-16.0) g/dl Hct 36.0 L (37.0-47.0) % MCV 86.5 (80.0-98.0) fL MCH 26.7 L (27.0-33.0) pg MCHC 30.8 L (31.0-35.0) g/dl RDW 15.8 (11.0-16.0) % Plt Count TNP MPV 10.7 (9.4-12.3) fL Immature Gran % (Auto) 0.3 (0.0-0.4) % Neut % (Auto) 65.3 (45-73) % Lymph % (Auto) 23.1 (20-40) % [place] % (Auto) 7.0 (2-11) % Eos % (Auto) 3.9 (0-4) % Baso % (Auto) 0.4 (0-2) % Lymph # (Auto) 1.8 (1.2-4.9) X10*3/uL [place] # (Auto) 0.6 (0.1-1.2) X10*3/uL Eos # (Auto) 0.3 (0.0-0.4) X10*3/uL Baso # (Auto) 0.0 (0.0-0.2) X10*3/uL Abs Immat Gran (auto) 0.02 (0.00-0.03) X10*3/uL Absolute Neuts (auto) 5.2 (2.0-8.3) x10*3/uL Absolute Nucleated RBC 0.000 (0.0-0.012) X10*3/uL Nucleated RBC % (auto) 0.0 (0.0-0.2) /100WBC Smear Tech's Comments VERIFIED Sodium 137 (135-145) mmol/L Potassium 4.2 (3.3-5.1) mmol/L Chloride 105 (96-108) mmol/L Carbon Dioxide 19 L (22-29) mmol/L Anion Gap 17 (12-20) BUN 10 (9-16) mg/dL Creatinine 0.76 (0.5-1.4) mg/dL Estim Creat Clear Calc 106.3 Estimated GFR > 60 Random Glucose 134 H (60-115) mg/dL Calcium 9.1 (8.4-10.2) mg/dL Total Bilirubin 0.2 (0.0-1.0) mg/dL AST 28 (5-31) U/L ALT 20 (0-31) U/L Alkaline Phosphatase 113 (39-117) U/L Total Protein 7.1 (6.5-8.0) g/dL Albumin 4.3 (3.5-5.0) g/dL Urine Color Urine Appearance Urine pH (5.0-9.0) Ur Specific [place] (1.005-1.025) Urine Protein (Neg-Trace) mg/dL Urine Glucose (UA) (Negative) mg/dL Urine Ketones (Negative) mg/dL Urine Blood (Negative) Urine Nitrite (Negative) Ur Leukocyte Esterase (Negative) Salicylates < 5.0 L (15-30) mg/dL Urine Opiates Screen (Not Detect) Urine Fentanyl Screen (Not Detect) Acetaminophen < 17 (<30) mcg/mL Ur Barbiturates Screen (Not Detect) Ur Phencyclidine Scrn (Not Detect) Ur Amphetamines Screen (Not Detect) U Benzodiazepines Scrn (Not Detect) Urine Cocaine Screen (Not Detect) U Marijuana (THC) Screen (Not Detect) COVID-19 (NICK) (Negative) COVID-19 Clin Com Core Measures AMI core measures followed: Yes Measure exclusions: not indicated Discharge Plan Discharge Clinical Impression: Acute anxiety Patient Disposition: Home, Self-Care Instructions: Generalized Anxiety Disorder (ED), Anxiety (ED) Additional Instructions: Take your medications as prescribed. If you were prescribed antibiotics today, it is important that you take your medication to their entirety, do not skip any doses, do not finish them early. Follow-up with your primary care provider this week. Follow-up with the behavioral health team. Return to the emergency department with new or worsening symptoms. Such as fevers, chills, chest pain, shortness of breath, nausea, vomiting, dizziness, headache, vision changes, lethargy In case of emergency call 911 Prescriptions: No Action metformin 500 mg tablet 1 tab PO BID atorvastatin 10 mg tablet 10 mg PO DAILY montelukast 10 mg tablet 1 tab PO BEDTIME chlorpromazine 25 mg tablet 3 tab PO DAILY@1700 nicotine (polacrilex) 4 mg gum 1 ea PO Q2H PRN (Reason: Smoking Cessation) lisinopril 5 mg tablet 1 tab PO DAILY fluoxetine 20 mg capsule 80 mg PO DAILY benztropine [Cogentin] 1 mg Tablet norethindrone (contraceptive) 0.35 mg Tablet verapamil 240 mg Capsule,Ext Rel. Pellets 24 Hr 240 mg PO DAILY Flovent ferrous sulfate 325 mg (65 mg iron) Tablet 325 mg PO DAILY benztropine [Cogentin] 1 mg Tablet 1 mg PO BID montelukast [Singulair] 10 mg Tablet 10 mg PO BEDTIME prazosin 1 mg Capsule 4 mg PO BEDTIME 30 Days Qty: 120 0RF Protocol: Hold for SBP< HOLD for SBP < : 90 fluphenazine HCl 5 mg tablet 1 tab PO BEDTIME sennosides [senna] 8.6 mg Tablet 8.6 mg PO BEDTIME PRN (Reason: Constipation) trazodone 150 mg tablet 1 tab PO BEDTIME Referrals: [facility] [place] Behavioral Health Services [Provider Group] - 2 days Physician,Unknown J [Primary Care Provider] - 2 days Interventions: [place]-Suicide Risk Severity Scale Last Done: 12/19/22 17:22
[2022-12-19 17:42] LABS: Appearance Urine Clear; Color Urine Yellow; Glucose Urine UA Negative (Negative); Leukocyte Esterase Urine Negative (Negative); Nitrite Urine Negative (Negative); Specific Gravity - Urine <= 1.005 (1.005-1.025); Urine Blood Negative (Negative); Urine Ketones Negative (Negative); Urine Protein Negative (Neg-Trace)
[2022-12-19 17:55] LABS: COVID-19 Test Negative (Negative); IDNOW Serial# 16C4AD1C
[2022-12-19 18:00] LABS: Amphetamine Screen Urine Not Detected (Not Detect); Barbiturates, Urine Not Detected (Not Detect); Benzodiazepines Screen Urine Not Detected (Not Detect); Cannabinoid Screen Urine Not Detected (Not Detect); Cocaine Screen Urine Not Detected (Not Detect); Fentanyl, urine Not Detected (Not Detect); Opiate Screen Urine Not Detected (Not Detect); Phencyclidine Screen Urine Not Detected (Not Detect)
[2022-12-19 18:45] LABS: Hemoglobin 11.1 g/dl (12.0-16.0); Mean Corpuscular Hemoglobin 26.7 pg (27.0-33.0); PLT CLUMP 1; Red Blood Count 4.16 X10*6/uL (4.20-5.50); Red Cell Distribution Width 15.8 % (11.0-16.0); SCAN SMEAR FLAG 1
[2022-12-19 18:47] LABS: Basophils Percent Auto 0.4 % (0-2); Eosinophils Absolute Auto 0.3 X10*3/uL (0.0-0.4); Eosinophils Percent Auto 3.9 % (0-4); Imm Gran Abs Auto 0.02 X10*3/uL (0.00-0.03); Imm Gran Pct Auto 0.3 % (0.0-0.4); Lymphocytes Absolute Auto 1.8 X10*3/uL (1.2-4.9); Lymphocytes Percent Auto 23.1 % (20-40); MANUAL DIFF FLAG SCAN; Mean Corpuscular HGB Conc 30.8 g/dl (31.0-35.0); Mean Corpuscular Volume 86.5 fL (80.0-98.0); Mean Platelet Volume 10.7 fL (9.4-12.3); Monocytes Absolute Auto 0.6 X10*3/uL (0.1-1.2); Neutrophils Absolute Auto 5.2 x10*3/uL (2.0-8.3); Neutrophils Percent Auto 65.3 % (45-73)
[2022-12-19 18:57] LABS: White Blood Count 7.9 X10*3/uL (4.8-10.8)
[2022-12-19 19:11] LABS: Acetaminophen LAB < 17 mcg/mL (<30); Alanine Aminotransferase 20 U/L (0-31); Albumin Level 4.3 g/dL (3.5-5.0); Alkaline Phosphatase 113 U/L (39-117); Anion Gap 17 (12-20); Aspartate Amino Transferase 28 U/L (5-31); Bilirubin Total 0.2 mg/dL (0.0-1.0); Blood Urea Nitrogen 10 mg/dL (9-16); Calcium 9.1 mg/dL (8.4-10.2); Carbon Dioxide 19 mmol/L (22-29); Chloride 105 mmol/L (96-108); Creatinine Clr Calc Pharmacy 106.3; Estimated Glomerular Filt Rate > 60; Glucose Random 134 mg/dL (60-115); Potassium 4.2 mmol/L (3.3-5.1); Salicylate < 5.0 mg/dL (15-30); Sodium 137 mmol/L (135-145); Total Protein 7.1 g/dL (6.5-8.0)
[2022-12-19 19:37] LABS: SLIDE REVIEW VERIFIED
== END 2022-12-19 20:30 | disposition home or self-care (01) ==
PROVIDERS: Physician Assistant; Emergency Provider Emergency Medicine
DX: F41.1 Generalized anxiety disorder (principal); F43.0 Acute stress reaction; R45.851 Suicidal ideations; F17.210 Nicotine dependence, cigarettes, uncomplicated; Z20.822 Contact with and (suspected) exposure to COVID-19; Z20.828 Contact with and (suspected) exposure to other viral communicable diseases; Z71.6 Tobacco abuse counseling; Z79.899 Other long term (current) drug therapy
CPT/HCPCS: 80053; 80143; 80179; 80307; 81003; 85025; 87635; 99283; 99284

== ENCOUNTER 2022-12-24 11:30 | Emergency (ER) | payer MEDICARE, MEDICAID, SELFPAY ==
[2022-12-24 11:35] VITALS: BP 142/90; PULSE 110; O2SAT 95
[2022-12-24 11:47] VITALS: BP 145/85; PULSE 92; RESP 18; TEMP 36.8; O2SAT 97; BMI 37.0
--- NOTE | 2022-12-24 12:04 | PC.NURSE ---
Pt a&ox3, vs stable. Pt reporting auditory command hallucinations- telling her to cut arms and stomach. Pt changed over, belongings secured. 1:1 at bedside. Pt asking for food. Diet order placed. Patient pending ED provider.
[2022-12-24 12:15] LABS: Amphetamine Screen Urine Not Detected (Not Detect); Barbiturates, Urine Not Detected (Not Detect); Benzodiazepines Screen Urine Not Detected (Not Detect); Cannabinoid Screen Urine Not Detected (Not Detect); Cocaine Screen Urine Not Detected (Not Detect); Fentanyl, urine Not Detected (Not Detect); Opiate Screen Urine Not Detected (Not Detect); Phencyclidine Screen Urine Not Detected (Not Detect)
[2022-12-24 12:21] LABS: COVID-19 Test Negative (Negative); IDNOW Serial# BCCEAD1C
--- NOTE | 2022-12-24 12:34 | ED_ITS ---
HPI - Psych General Chief Complaint: Psychiatric Symptoms Stated Complaint: AUDITORY/VISUAL HALLUCINATIONS FROM [facility] Time Seen by Provider: 12/24/22 11:39 Source: patient Mode of arrival: EMS History of Present Illness HPI Narrative: 47-year-old female who arrives via ambulance from her care home reporting increase auditory command hallucinations telling her to cut her arm and stomach . Patient denies any attempt at this time and was seen at [facility] yesterday for the same command auditory hallucinations. Related Data Home Medications Medication Instructions Recorded Confirmed atorvastatin 10 mg tablet 10 mg PO DAILY 05/29/21 12/24/22 metformin 500 mg tablet 1 tab PO BID 05/29/21 12/24/22 montelukast 10 mg tablet 1 tab PO BEDTIME 05/29/21 12/24/22 lisinopril 5 mg tablet 1 tab PO DAILY 07/30/22 12/24/22 nicotine (polacrilex) 4 mg gum 1 ea PO Q2H PRN Smoking Cessation 07/30/22 12/24/22 trazodone 150 mg tablet 1 tab PO BEDTIME 09/23/22 12/24/22 benztropine 1 mg tablet 1 mg PO BID 12/19/22 12/24/22 ferrous sulfate 325 mg (65 mg 325 mg PO DAILY 12/19/22 12/24/22 iron) tablet albuterol sulfate 90 mcg/actuation 2 puff inhalation Q4-6H PRN 12/24/22 12/24/22 aerosol inhaler (Ventolin HFA) Shortness Of Breath Or Wheezing chlorpromazine 50 mg tablet 1 tab PO TID PRN Agitation 12/24/22 12/24/22 fluoxetine 40 mg capsule 2 cap PO DAILY 12/24/22 12/24/22 fluphenazine HCl 5 mg tablet 1 tab PO BID 12/24/22 12/24/22 mirtazapine 15 mg tablet 0.5 tab PO DAILY 12/24/22 12/24/22 pantoprazole 40 mg tablet,delayed 1 tab PO DAILY@0630 12/24/22 12/24/22 release Previous Rx's Medication Instructions Recorded prazosin 1 mg capsule 4 mg PO BEDTIME 30 days #120 caps 10/18/21 Allergies Allergy/AdvReac Type Severity Reaction Status Date / Time Fish Containing Products Allergy Severe ANAPHYLAXIS Verified 12/24/22 11:47 codeine [Codeine] Allergy Intermediate RASH Verified 12/24/22 11:47 Penicillins Allergy Intermediate RASH Verified 12/24/22 11:47 prednisone [Prednisone] Allergy Intermediate RASH Verified 12/24/22 11:47 Sulfa (Sulfonamide Allergy Intermediate RASH Verified 12/24/22 11:47 Antibiotics) [Sulfa (Sulfonamides)] azithromycin [AZITHROMYCIN] AdvReac Severe RASH Verified 12/24/22 11:47 ziprasidone [From Geodon] AdvReac Intermediate dysuria, Verified 12/24/22 11:47 rash Review of Systems Review of Systems: Pertinent positives and negatives as stated in [facility] Past Medical History Source: nursing notes reviewed Medical History Acetaminophen overdose Borderline personality disorder Bronchitis Depression Diabetes type 2, controlled Full body hives GERD (gastroesophageal reflux disease) History of attempted suicide History of non-suicidal self-harm Hyperlipidemia Hypomagnesemia Major depression MDD (major depressive disorder), recurrent episode, severe Mood disorder Overdose PTSD (post-traumatic stress disorder) Suicide attempt Suicide attempt by acetaminophen overdose Social History Social History Household Members: Other Household Members Other:: care home Housing: Other Housing Other:: care home Do you presently have visiting nurse or other home services: No Unable to assess alcohol history related to: Unknown Alcohol intake: unknown Patient Tobacco Use Status: Current everyday Tobacco user Tobacco use type: Cigarette Cigarette Packs Per Day: 1 Cigarettes Per Day: 16 Years Smoked: 20 Smoked in Last 30 Days: Yes e-Cigarette/Vaping Use: Never Used Use of substances other than those prescribed or required for medical reasons: Yes Substance Use Type: Marijuana Advance Directives: No Advance Directives Information Provided: No Patient : No service: No Current occupational status: unemployed and disabled Sexual orientation: Don't Know Physical Exam Vital Signs: Vital Signs: Last Vital Signs Temp 98.2 F 12/24/22 11:47 Pulse 82 12/24/22 15:33 Resp 16 12/24/22 15:33 BP 153/96 H 12/24/22 15:33 Pulse Ox 96 12/24/22 15:33 O2 Del Method 12/24/22 11:47 BMI result Body Mass Index 37.0 VITAL SIGNS: Reviewed. GENERAL: Well developed, well nourished, in no acute distress. HEAD: Normocephalic/atraumatic EYES: PERRLA, EOMI LUNGS: Normal breath sounds. No adventitious sounds or accessory muscle use. SpO2<96> CARDIOVASCULAR: Regular rate and rhythm without noted murmurs ABDOMEN: Soft, non-tender, non-distended with bowel sounds. MUSCULOSKELETAL: No tenderness, deformities, or effusions noted on gross inspection. EXTREMITIES: No cyanosis, clubbing or edema. SKIN: Inspection of the skin reveals no rashes NEUROLOGIC: Alert and oriented x 4. Strength and sensation to light touch were grossly intact x 4. PSYCH: normal affect Medical Decision Making Medical Decision Making MDM Narrative: 47-year-old female with history and clinical presentation consistent with many of her presentations though on occasion she will follow through with an attempt, but appears otherwise well and on review of all investigations my interpretation is that her workup is chronically stable and she is otherwise medically cleared for further evaluation by the care team. 1609:Care Team (James) evaluated and pt denies any AVH at this time, is looking forward to returning to the care home and activities set up for tomorrow. [facility] is good to take patient back. Differential Diagnosis please see the discussion above Lab Data Please see the discussion above 12/24/22 13:35 12/24/22 13:39 Labs: Lab Results 12/24/22 12/24/22 12/24/22 Range/Units 11:57 11:58 13:35 WBC 6.9 (4.8-10.8) X10*3/uL RBC 4.11 L (4.20-5.50) X10*6/uL Hgb 10.9 L (12.0-16.0) g/dl Hct 35.2 L (37.0-47.0) % MCV 85.6 (80.0-98.0) fL MCH 26.5 L (27.0-33.0) pg MCHC 31.0 (31.0-35.0) g/dl RDW 15.7 (11.0-16.0) % Plt Count 280 (160-400) X10*3/uL MPV 9.8 (9.4-12.3) fL Immature Gran % (Auto) 0.4 (0.0-0.4) % Neut % (Auto) 67.6 (45-73) % Lymph % (Auto) 20.3 (20-40) % [place] % (Auto) 6.4 (2-11) % Eos % (Auto) 4.7 H (0-4) % Baso % (Auto) 0.6 (0-2) % Lymph # (Auto) 1.4 (1.2-4.9) X10*3/uL [place] # (Auto) 0.4 (0.1-1.2) X10*3/uL Eos # (Auto) 0.3 (0.0-0.4) X10*3/uL Baso # (Auto) 0.0 (0.0-0.2) X10*3/uL Abs Immat Gran (auto) 0.03 (0.00-0.03) X10*3/uL Absolute Neuts (auto) 4.7 (2.0-8.3) x10*3/uL Absolute Nucleated RBC 0.000 (0.0-0.012) X10*3/uL Nucleated RBC % (auto) 0.0 (0.0-0.2) /100WBC Sodium (135-145) mmol/L Potassium (3.3-5.1) mmol/L Chloride (96-108) mmol/L Carbon Dioxide (22-29) mmol/L Anion Gap (12-20) BUN (9-16) mg/dL Creatinine (0.5-1.4) mg/dL Estim Creat Clear Calc Estimated GFR Random Glucose (60-115) mg/dL Calcium (8.4-10.2) mg/dL Total Bilirubin (0.0-1.0) mg/dL AST (5-31) U/L ALT (0-31) U/L Alkaline Phosphatase (39-117) U/L Total Protein (6.5-8.0) g/dL Albumin (3.5-5.0) g/dL Salicylates (15-30) mg/dL Urine Opiates Screen Not Detected (Not Detect) Urine Fentanyl Screen Not Detected (Not Detect) Acetaminophen (<30) mcg/mL Ur Barbiturates Screen Not Detected (Not Detect) Ur Phencyclidine Scrn Not Detected (Not Detect) Ur Amphetamines Screen Not Detected (Not Detect) U Benzodiazepines Scrn Not Detected (Not Detect) Urine Cocaine Screen Not Detected (Not Detect) U Marijuana (THC) Screen Not Detected (Not Detect) COVID-19 ([facility]ICK) Negative (Negative) COVID-19 Clin Com See Note 12/24/22 Range/Units 13:39 WBC (4.8-10.8) X10*3/uL RBC (4.20-5.50) X10*6/uL Hgb (12.0-16.0) g/dl Hct (37.0-47.0) % MCV (80.0-98.0) fL MCH (27.0-33.0) pg MCHC (31.0-35.0) g/dl RDW (11.0-16.0) % Plt Count (160-400) X10*3/uL MPV (9.4-12.3) fL Immature Gran % (Auto) (0.0-0.4) % Neut % (Auto) (45-73) % Lymph % (Auto) (20-40) % [place] % (Auto) (2-11) % Eos % (Auto) (0-4) % Baso % (Auto) (0-2) % Lymph # (Auto) (1.2-4.9) X10*3/uL [place] # (Auto) (0.1-1.2) X10*3/uL Eos # (Auto) (0.0-0.4) X10*3/uL Baso # (Auto) (0.0-0.2) X10*3/uL Abs Immat Gran (auto) (0.00-0.03) X10*3/uL Absolute Neuts (auto) (2.0-8.3) x10*3/uL Absolute Nucleated RBC (0.0-0.012) X10*3/uL Nucleated RBC % (auto) (0.0-0.2) /100WBC Sodium 138 (135-145) mmol/L Potassium 4.5 (3.3-5.1) mmol/L Chloride 107 (96-108) mmol/L Carbon Dioxide 20 L (22-29) mmol/L Anion Gap 16 (12-20) BUN 10 (9-16) mg/dL Creatinine 0.73 (0.5-1.4) mg/dL Estim Creat Clear Calc 110.6 Estimated GFR > 60 Random Glucose 155 H (60-115) mg/dL Calcium 8.9 (8.4-10.2) mg/dL Total Bilirubin 0.2 (0.0-1.0) mg/dL AST 37 H (5-31) U/L ALT 24 (0-31) U/L Alkaline Phosphatase 95 (39-117) U/L Total Protein 6.9 (6.5-8.0) g/dL Albumin 3.9 (3.5-5.0) g/dL Salicylates < 5.0 L (15-30) mg/dL Urine Opiates Screen (Not Detect) Urine Fentanyl Screen (Not Detect) Acetaminophen < 17 (<30) mcg/mL Ur Barbiturates Screen (Not Detect) Ur Phencyclidine Scrn (Not Detect) Ur Amphetamines Screen (Not Detect) U Benzodiazepines Scrn (Not Detect) Urine Cocaine Screen (Not Detect) U Marijuana (THC) Screen (Not Detect) COVID-19 ([facility]ICK) (Negative) COVID-19 Clin Com External Record Review External record reviewed: Outpatient record and Prior outpatient labs Discharge Plan Discharge Clinical Impression: Borderline personality disorder, Depression Patient Disposition: Xfer Other Instructions: Depression (ED) Additional Instructions: 1. Resume all home medications. 2. Return to the emergency room for any worsening or additional symptoms. Prescriptions: No Action metformin 500 mg tablet 1 tab PO BID atorvastatin 10 mg tablet 10 mg PO DAILY montelukast 10 mg tablet 1 tab PO BEDTIME nicotine (polacrilex) 4 mg gum 1 ea PO Q2H PRN (Reason: Smoking Cessation) lisinopril 5 mg tablet 1 tab PO DAILY ferrous sulfate 325 mg (65 mg iron) Tablet 325 mg PO DAILY benztropine [Cogentin] 1 mg Tablet 1 mg PO BID fluoxetine 40 mg capsule 2 cap PO DAILY pantoprazole 40 mg tablet,delayed release (DR/EC) 1 tab PO DAILY@0630 mirtazapine 15 mg tablet 0.5 tab PO DAILY albuterol sulfate [Ventolin HFA] 90 mcg/actuation HFA aerosol inhaler 2 puff inhalation Q4-6H PRN (Reason: Shortness Of Breath Or Wheezing) fluphenazine HCl 5 mg tablet 1 tab PO BID chlorpromazine 50 mg tablet 1 tab PO TID PRN (Reason: Agitation) prazosin 1 mg Capsule 4 mg PO BEDTIME 30 Days Qty: 120 0RF Protocol: Hold for SBP< HOLD for SBP < : 90 trazodone 150 mg tablet 1 tab PO BEDTIME Referrals: Maribel Marquez NP [Primary Care Provider] - Interventions: [place]-Suicide Risk Severity Scale Last Done: 12/24/22 11:51
--- NOTE | 2022-12-24 13:09 | PC.NURSE ---
two attempts to collect blood made by technicians, phlebotomy notified.
[2022-12-24 13:38] LABS: MANUAL DIFF FLAG NO
[2022-12-24 13:39] LABS: Basophils Percent Auto 0.6 % (0-2); Eosinophils Absolute Auto 0.3 X10*3/uL (0.0-0.4); Eosinophils Percent Auto 4.7 % (0-4); Hematocrit 35.2 % (37.0-47.0); Hemoglobin 10.9 g/dl (12.0-16.0); Imm Gran Abs Auto 0.03 X10*3/uL (0.00-0.03); Imm Gran Pct Auto 0.4 % (0.0-0.4); Lymphocytes Absolute Auto 1.4 X10*3/uL (1.2-4.9); Lymphocytes Percent Auto 20.3 % (20-40); Mean Corpuscular Hemoglobin 26.5 pg (27.0-33.0); Mean Corpuscular Volume 85.6 fL (80.0-98.0); Mean Platelet Volume 9.8 fL (9.4-12.3); Monocytes Absolute Auto 0.4 X10*3/uL (0.1-1.2); Monocytes Percent Auto 6.4 % (2-11); Neutrophils Absolute Auto 4.7 x10*3/uL (2.0-8.3); Neutrophils Percent Auto 67.6 % (45-73); Platelet Count 280 X10*3/uL (160-400); Red Blood Count 4.11 X10*6/uL (4.20-5.50); Red Cell Distribution Width 15.7 % (11.0-16.0); White Blood Count 6.9 X10*3/uL (4.8-10.8)
--- NOTE | 2022-12-24 14:03 | PHA.MEDREC ---
Pharmacy Consult ? Medication Reconciliation Pharmacy has completed the medication reconciliation. Spoke to patient to confirm meds. The patient knew most medications, but could not name dosages. Called [facility] patient lives at, but no response. Left voicemail to call back pharmacy. Using claim history and patient's testimony to confirm meds.
[2022-12-24 14:09] LABS: Acetaminophen LAB < 17 mcg/mL (<30); Alanine Aminotransferase 24 U/L (0-31); Albumin Level 3.9 g/dL (3.5-5.0); Alkaline Phosphatase 95 U/L (39-117); Anion Gap 16 (12-20); Aspartate Amino Transferase 37 U/L (5-31); Bilirubin Total 0.2 mg/dL (0.0-1.0); Blood Urea Nitrogen 10 mg/dL (9-16); Calcium 8.9 mg/dL (8.4-10.2); Carbon Dioxide 20 mmol/L (22-29); Chloride 107 mmol/L (96-108); Creatinine Clr Calc Pharmacy 110.6; Estimated Glomerular Filt Rate > 60; Glucose Random 155 mg/dL (60-115); Potassium 4.5 mmol/L (3.3-5.1); Sodium 138 mmol/L (135-145); Total Protein 6.9 g/dL (6.5-8.0)
[2022-12-24 14:27] LABS: Salicylate < 5.0 mg/dL (15-30)
[2022-12-24 15:33] VITALS: BP 153/96; PULSE 82; RESP 16; O2SAT 96
--- NOTE | 2022-12-24 16:40 | PC.NURSE ---
pt endorses feeling safe to return to detention, lyft transport arranged by care team. pt declined medication - reports she will take meds at home.
== END 2022-12-24 16:41 | disposition other institution (70) ==
PROVIDERS: Emergency Provider Student in an Organized Health Care Education/Training Program; PCP Nurse Practitioner Family
DX: F33.1 Major depressive disorder, recurrent, moderate (principal); R44.0 Auditory hallucinations; F17.210 Nicotine dependence, cigarettes, uncomplicated; Z71.6 Tobacco abuse counseling; Z79.899 Other long term (current) drug therapy; Z20.822 Contact with and (suspected) exposure to COVID-19; Z20.828 Contact with and (suspected) exposure to other viral communicable diseases
CPT/HCPCS: 36415; 80053; 80143; 80179; 80307; 85025; 87635; 99284; 99285

== ENCOUNTER 2023-01-05 19:30 | Emergency (ER) | payer MEDICARE, MEDICAID, SELFPAY ==
[2023-01-05 19:39] VITALS: BMI 37.8
[2023-01-05 19:45] VITALS: BP 152/80; PULSE 102; RESP 16; TEMP 36.7; O2SAT 98
--- NOTE | 2023-01-05 19:45 | ED_ITS ---
HPI - Psych General Chief Complaint: Psychiatric Symptoms Stated Complaint: SI Time Seen by Provider: 01/05/23 19:39 Source: patient Mode of arrival: ambulatory Limitations: no limitations History of Present Illness HPI Narrative: 47-year-old female past medical history significant personality depression bipolar 2 with melancholic peatures, PTSD, DM, GERD presents via ambulance?for complaints of visual, auditory hallucinations, self-inflicted wounds to? bilateral? forearms, thighs, stomach, depression x1 day worsening.?Patient tells me she is having hallucinations that are telling her to cut herself.? She tells me she was unable to go to group today because her ride never showed up.? Tells me she is feeling better now.? Denies suicidal and homicidal ideation. At this time is denying visual, auditory and tactile hallucinations.? No medical complaints. UTD on tetanus shot. To note patient tells me that she was d/c from [facility] earlier today. Related Data Home Medications Medication Instructions Recorded Confirmed atorvastatin 10 mg tablet 10 mg PO DAILY 05/29/21 01/05/23 metformin 500 mg tablet 1 tab PO BID 05/29/21 01/05/23 montelukast 10 mg tablet 1 tab PO BEDTIME 05/29/21 01/05/23 lisinopril 5 mg tablet 1 tab PO DAILY 07/30/22 01/05/23 nicotine (polacrilex) 4 mg gum 1 ea PO Q2H PRN Smoking Cessation 07/30/2212/14 trazodone 150 mg tablet 1 tab PO BEDTIME 09/23/22 01/05/23 benztropine 1 mg tablet 1 mg PO BID 12/19/22 01/05/23 ferrous sulfate 325 mg (65 mg 325 mg PO DAILY 12/19/22 12/24/22 iron) tablet albuterol sulfate 90 mcg/actuation 2 puff inhalation Q4-6H PRN 12/24/22 01/05/23 aerosol inhaler (Ventolin HFA) Shortness Of Breath Or Wheezing chlorpromazine 50 mg tablet 1 tab PO TID PRN Agitation 12/24/22 01/05/23 fluoxetine 40 mg capsule 2 cap PO DAILY 12/24/22 01/05/23 fluphenazine HCl 5 mg tablet 1 tab PO BID 12/24/22 01/05/23 mirtazapine 15 mg tablet 0.5 tab PO DAILY 12/24/22 01/05/23 pantoprazole 40 mg tablet,delayed 1 tab PO DAILY@0630 12/24/22 01/05/23 release Previous Rx's Medication Instructions Recorded prazosin 1 mg capsule 4 mg PO BEDTIME 30 days #120 caps 10/18/21 Allergies Allergy/AdvReac Type Severity Reaction Status Date / Time Fish Containing Products Allergy Severe ANAPHYLAXIS Verified 12/24/22 11:47 codeine [Codeine] Allergy Intermediate RASH Verified 12/24/22 11:47 Penicillins Allergy Intermediate RASH Verified 12/24/22 11:47 prednisone [Prednisone] Allergy Intermediate RASH Verified 12/24/22 11:47 Sulfa (Sulfonamide Allergy Intermediate RASH Verified 12/24/22 11:47 Antibiotics) [Sulfa (Sulfonamides)] azithromycin [AZITHROMYCIN] AdvReac Severe RASH Verified 12/24/22 11:47 ziprasidone [From Geodon] AdvReac Intermediate dysuria, Verified 12/24/22 11:47 rash Review of Systems Review of Systems: Constitutional : No Weight loss, No Fever, No Chills, No Fatigue, No Malaise ENT/Mouth : No sore throat, No Rhinorrhea Eyes: No Eye Pain, No Swelling, No Redness Cardiovascular : No Chest Pain, No SOB, No Dyspnea on Exertion, No Orthopnea, No Edema, No Palpitations Respiratory : No Cough, No Sputum, No Wheezing Gastrointestinal : No Nausea, No Vomiting, No Diarrhea, No Constipation, No abdominal Pain, No Hematochezia, No Melena Genitourinary : No Dysuria, No Urinary Frequency, No Hematuria, Musculoskeletal : No joint pain, No Myalgias, No Joint Swelling Skin : No Skin Lesions, No rash Neuro : No Weakness, No Numbness, No Dizziness, No Headache Psych : No Anxiety/Panic, No Depression All other systems reviewed and are negative Yes all other systems are reviewed and are negative [facility] Past Medical History Attestation statement: The following information was validated with the patient. 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: Other Household Members Other:: [facility] Housing: Other Housing Other:: [facility] Do you presently have visiting nurse or other home services: No Unable to assess alcohol history related to: Unknown Alcohol intake: unknown Patient Tobacco Use Status: Current everyday Tobacco user Tobacco use type: Cigarette Cigarette Packs Per Day: 1 Cigarettes Per Day: 16 Years Smoked: 20 e-Cigarette/Vaping Use: Never Used Substance Use Type: Marijuana Advance Directives: No Advance Directives Information Provided: Yes Healthcare Proxy: No Guardian: No service: No Current occupational status: unemployed and disabled Sexual orientation: Don't Know Physical Exam Vital Signs: Vital Signs: Last Vital Signs Temp 98.1 F 01/05/23 19:45 Pulse 102 H 01/05/23 19:45 Resp 16 01/05/23 19:45 BP 152/80 H 01/05/23 19:45 Pulse Ox 98 01/05/23 19:45 O2 Del Method Room Air 01/05/23 19:45 BMI result Body Mass Index 37.8 vss Appearance: Alert.? Oriented X3.? No acute distress.? Head: Normocephalic, atraumatic, no step-offs or deformities Eyes: Pupils equal, round and reactive to light.? Neck: Normal inspection.? Neck supple.? CVS: Normal heart rate and rhythm.? Pulses normal.? Respiratory: No respiratory distress.? Breath sounds normal.? Abdomen: Soft and nontender.? Skin: Skin warm and dry.? Normal skin color.? Normal skin turgor.?Self-inflicted superficial wounds to? bilateral forearms, anterior thighs bilaterally, stomach Extremities: No lower extremity edema.? No calf ttp. 5/5 strength to bilateral upper and lower extremities Neuro: Oriented X 3.? No motor deficit.? No sensory deficit. CN 2-12 intact Course Reevaluation(s) Reevaluation #1: Patient with a slight normocytic anemia that appears to be around her baseline. Chemistry with no acute electrolyte abnormalities requiring intervention. UA negative. Toxicology negative. Salicylates, acetaminophen and ethanol negative. COVID negative. Time: 22:18 Reevaluation #2: SAMIRA follow up in the AM. Patient will be placed into observation to allow more time for ED SP follow-up, patient okay with plan. Vital signs stable. Patient is Calm & cooperative. Wi ll continue to monitor. Time: 23:32 Medical Decision Making Medical Decision Making [facility] Narrative: 1945 47 year-old female presenting with anxiety, depression, visual and auditory hallucinations , self-inflicted wounds . Physical examination w/ ? Superficial wounds to bilateral forearms,? anterior thigh use, abdomen Likley MDD vs borderline personality do vs anxiety.? Unlikely metabolic causes. Plan- medical clearance and evaluation by [facility] Differential Diagnosis Differential Diagnoses: The differential diagnosis associated with the presentation includes ?Likley MDD vs borderline personality do vs anxiety.? Unlikely metabolic causes. Admission/Observation Consideration of admission/observation: Escalation of care including admiss ion/observation considered not arnol Lab Data 01/05/23 20:58 01/05/23 20:58 Labs: Lab Results 01/05/23 01/05/23 01/05/23 Range/Units 19:52 20:41 20:41 WBC (4.8-10.8) X10*3/uL RBC (4.20-5.50) X10*6/uL Hgb (12.0-16.0) g/dl Hct (37.0-47.0) % MCV (80.0-98.0) fL MCH (27.0-33.0) pg MCHC (31.0-35.0) g/dl RDW (11.0-16.0) % Plt Count (160-400) X10*3/uL MPV (9.4-12.3) fL Immature Gran % (Auto) (0.0-0.4) % Neut % (Auto) (45-73) % Lymph % (Auto) (20-40) % [place] % (Auto) (2-11) % Eos % (Auto) (0-4) % Baso % (Auto) (0-2) % Lymph # (Auto) (1.2-4.9) X10*3/uL [place] # (Auto) (0.1-1.2) X10*3/uL Eos # (Auto) (0.0-0.4) X10*3/uL Baso # (Auto) (0.0-0.2) X10*3/uL Abs Immat Gran (auto) (0.00-0.03) X10*3/uL Absolute Neuts (auto) (2.0-8.3) x10*3/uL Absolute Nucleated RBC (0.0-0.012) X10*3/uL Nucleated RBC % (auto) (0.0-0.2) /100WBC Sodium (135-145) mmol/L Potassium (3.3-5.1) mmol/L Chloride (96-108) mmol/L Carbon Dioxide (22-29) mmol/L Anion Gap (12-20) BUN (9-16) mg/dL Creatinine (0.5-1.4) mg/dL Estim Creat Clear Calc Estimated GFR Random Glucose (60-115) mg/dL Calcium (8.4-10.2) mg/dL Total Bilirubin (0.0-1.0) mg/dL AST (5-31) U/L ALT (0-31) U/L Alkaline Phosphatase (39-117) U/L Total Protein (6.5-8.0) g/dL Albumin (3.5-5.0) g/dL Urine Color Yellow Urine Appearance Clear Urine pH 7.0 (5.0-9.0) Ur Specific [place] 1.010 (1.005-1.025) Urine Protein Negative (Neg-Trace) mg/dL Urine Glucose (UA) Negative (Negative) mg/dL Urine Ketones Negative (Negative) mg/dL Urine Blood Moderate (2+) H (Negative) Urine Nitrite Negative (Negative) Ur Leukocyte Esterase Negative (Negative) Urine RBC 0-2 (0-2) /HPF Urine WBC 0-5 (0-5) /HPF Ur Squamous Epith Cells 0-2 (0-2) /HPF Urine Bacteria None Seen (None Seen) Hyaline Casts 0-2 (0-2) /LPF Urine Test NEGATIVE (NEGATIVE) Salicylates (15-30) mg/dL Urine Opiates Screen (Not Detect) Urine Fentanyl Screen (Not Detect) Acetaminophen (<30) mcg/mL Ur Barbiturates Screen (Not Detect) Ur Phencyclidine Scrn (Not Detect) Ur Amphetamines Screen (Not Detect) U Benzodiazepines Scrn (Not Detect) Urine Cocaine Screen (Not Detect) U Marijuana (THC) Screen (Not Detect) Ethyl Alcohol mg/dL COVID-19 (NICK) Negative (Negative) COVID-19 Clin Com See Note 01/05/23 01/05/23 01/05/23 Range/Units 20:58 20:58 20:58 WBC 7.3 (4.8-10.8) X10*3/uL RBC 3.69 L (4.20-5.50) X10*6/uL Hgb 9.9 L (12.0-16.0) g/dl Hct 31.7 L (37.0-47.0) % MCV 85.9 (80.0-98.0) fL MCH 26.8 L (27.0-33.0) pg MCHC 31.2 (31.0-35.0) g/dl RDW 15.8 (11.0-16.0) % Plt Count 281 (160-400) X10*3/uL MPV 9.6 (9.4-12.3) fL Immature Gran % (Auto) 0.5 H (0.0-0.4) % Neut % (Auto) 60.8 (45-73) % Lymph % (Auto) 24.0 (20-40) % [place] % (Auto) 8.9 (2-11) % Eos % (Auto) 5.3 H (0-4) % Baso % (Auto) 0.5 (0-2) % Lymph # (Auto) 1.8 (1.2-4.9) X10*3/uL [place] # (Auto) 0.7 (0.1-1.2) X10*3/uL Eos # (Auto) 0.4 (0.0-0.4) X10*3/uL Baso # (Auto) 0.0 (0.0-0.2) X10*3/uL Abs Immat Gran (auto) 0.04 H (0.00-0.03) X10*3/uL Absolute Neuts (auto) 4.4 (2.0-8.3) x10*3/uL Absolute Nucleated RBC 0.000 (0.0-0.012) X10*3/uL Nucleated RBC % (auto) 0.0 (0.0-0.2) /100WBC Sodium 141 (135-145) mmol/L Potassium 4.0 (3.3-5.1) mmol/L Chloride 107 (96-108) mmol/L Carbon Dioxide 25 (22-29) mmol/L Anion Gap 13 (12-20) BUN 13 (9-16) mg/dL Creatinine 0.74 (0.5-1.4) mg/dL Estim Creat Clear Calc 110.2 Estimated GFR > 60 Random Glucose 110 (60-115) mg/dL Calcium 8.5 (8.4-10.2) mg/dL Total Bilirubin < 0.2 (0.0-1.0) mg/dL AST 14 (5-31) U/L ALT 16 (0-31) U/L Alkaline Phosphatase 109 (39-117) U/L Total Protein 6.3 L (6.5-8.0) g/dL Albumin 4.0 (3.5-5.0) g/dL Urine Color Urine Appearance Urine pH (5.0-9.0) Ur Specific [place] (1.005-1.025) Urine Protein (Neg-Trace) mg/dL Urine Glucose (UA) (Negative) mg/dL Urine Ketones (Negative) mg/dL Urine Blood (Negative) Urine Nitrite (Negative) Ur Leukocyte Esterase (Negative) Urine RBC (0-2) /HPF Urine WBC (0-5) /HPF Ur Squamous Epith Cells (0-2) /HPF Urine Bacteria (None Seen) Hyaline Casts (0-2) /LPF Urine Test (NEGATIVE) Salicylates < 5.0 L (15-30) mg/dL Urine Opiates Screen (Not Detect) Urine Fentanyl Screen (Not Detect) Acetaminophen < 17 (<30) mcg/mL Ur Barbiturates Screen (Not Detect) Ur Phencyclidine Scrn (Not Detect) Ur Amphetamines Screen (Not Detect) U Benzodiazepines Scrn (Not Detect) Urine Cocaine Screen (Not Detect) U Marijuana (THC) Screen (Not Detect) Ethyl Alcohol < 10 mg/dL COVID-19 (NICK) (Negative) COVID-19 Clin Com 01/05/23 Range/Units 20:58 WBC (4.8-10.8) X10*3/uL RBC (4.20-5.50) X10*6/uL Hgb (12.0-16.0) g/dl Hct (37.0-47.0) % MCV (80.0-98.0) fL MCH (27.0-33.0) pg MCHC (31.0-35.0) g/dl RDW (11.0-16.0) % Plt Count (160-400) X10*3/uL MPV (9.4-12.3) fL Immature Gran % (Auto) (0.0-0.4) % Neut % (Auto) (45-73) % Lymph % (Auto) (20-40) % [place] % (Auto) (2-11) % Eos % (Auto) (0-4) % Baso % (Auto) (0-2) % Lymph # (Auto) (1.2-4.9) X10*3/uL [place] # (Auto) (0.1-1.2) X10*3/uL Eos # (Auto) (0.0-0.4) X10*3/uL Baso # (Auto) (0.0-0.2) X10*3/uL Abs Immat Gran (auto) (0.00-0.03) X10*3/uL Absolute Neuts (auto) (2.0-8.3) x10*3/uL Absolute Nucleated RBC (0.0-0.012) X10*3/uL Nucleated RBC % (auto) (0.0-0.2) /100WBC Sodium (135-145) mmol/L Potassium (3.3-5.1) mmol/L Chloride (96-108) mmol/L Carbon Dioxide (22-29) mmol/L Anion Gap (12-20) BUN (9-16) mg/dL Creatinine (0.5-1.4) mg/dL Estim Creat Clear Calc Estimated GFR Random Glucose (60-115) mg/dL Calcium (8.4-10.2) mg/dL Total Bilirubin (0.0-1.0) mg/dL AST (5-31) U/L ALT (0-31) U/L Alkaline Phosphatase (39-117) U/L Total Protein (6.5-8.0) g/dL Albumin (3.5-5.0) g/dL Urine Color Urine Appearance Urine pH (5.0-9.0) Ur Specific [place] (1.005-1.025) Urine Protein (Neg-Trace) mg/dL Urine Glucose (UA) (Negative) mg/dL Urine Ketones (Negative) mg/dL Urine Blood (Negative) Urine Nitrite (Negative) Ur Leukocyte Esterase (Negative) Urine RBC (0-2) /HPF Urine WBC (0-5) /HPF Ur Squamous Epith Cells (0-2) /HPF Urine Bacteria (None Seen) Hyaline Casts (0-2) /LPF Urine Test (NEGATIVE) Salicylates (15-30) mg/dL Urine Opiates Screen Not Detected (Not Detect) Urine Fentanyl Screen Not Detected (Not Detect) Acetaminophen (<30) mcg/mL Ur Barbiturates Screen Not Detected (Not Detect) Ur Phencyclidine Scrn Not Detected (Not Detect) Ur Amphetamines Screen Not Detected (Not Detect) U Benzodiazepines Scrn Not Detected (Not Detect) Urine Cocaine Screen Not Detected (Not Detect) U Marijuana (THC) Screen Not Detected (Not Detect) Ethyl Alcohol mg/dL COVID-19 (NICK) (Negative) COVID-19 Clin Com Core Measures AMI core measures followed: Yes Measure exclusions: not indicated Critical Care Time Critical Care Time Critical Care Time: No Discharge Plan Discharge Clinical Impression: Acute anxiety Patient Disposition: Home, Self-Care Instructions: Anxiety (ED) Additional Instructions: Take your medications as prescribed. If you were prescribed antibiotics today, it is important that you take your medication to their entirety, do not skip any doses, do not finish them early. Follow-up with your primary care provider this week. Return to the emergency department with new or worsening symptoms. Such as fevers, chills, chest pain, shortness of breath, nausea, vomiting, dizziness, headache, vision changes, lethargy In case of emergency call 911 Prescriptions: No Action metformin 500 mg tablet 1 tab PO BID atorvastatin 10 mg tablet 10 mg PO DAILY montelukast 10 mg tablet 1 tab PO BEDTIME nicotine (polacrilex) 4 mg gum 1 ea PO Q2H PRN (Reason: Smoking Cessation) lisinopril 5 mg tablet 1 tab PO DAILY ferrous sulfate 325 mg (65 mg iron) Tablet 325 mg PO DAILY benztropine [Cogentin] 1 mg Tablet 1 mg PO BID fluoxetine 40 mg capsule 2 cap PO DAILY pantoprazole 40 mg tablet,delayed release (DR/EC) 1 tab PO DAILY@0630 mirtazapine 15 mg tablet 0.5 tab PO DAILY albuterol sulfate [Ventolin HFA] 90 mcg/actuation HFA aerosol inhaler 2 puff inhalation Q4-6H PRN (Reason: Shortness Of Breath Or Wheezing) fluphenazine HCl 5 mg tablet 1 tab PO BID chlorpromazine 50 mg tablet 1 tab PO TID PRN (Reason: Agitation) prazosin 1 mg Capsule 4 mg PO BEDTIME 30 Days Qty: 120 0RF Protocol: Hold for SBP< HOLD for SBP < : 90 trazodone 150 mg tablet 1 tab PO BEDTIME Referrals: [facility] [Provider Group] - 2 days Maribel Marquez NP [Primary Care Provider] - 2 days Stand Alone Forms: Work/School Release
[2023-01-05 20:13] LABS: COVID-19 Test Negative (Negative); IDNOW Serial# 6674DD1D
[2023-01-05 20:49] LABS: Appearance Urine Clear; Color Urine Yellow; Glucose Urine UA Negative (Negative); Leukocyte Esterase Urine Negative (Negative); Nitrite Urine Negative (Negative); UMIC TRIGGER UA YES; Urine Blood Moderate (2+) (Negative); Urine Ketones Negative (Negative); Urine Protein Negative (Neg-Trace)
[2023-01-05 20:50] LABS: UPreg QC Valid YES; Urine Pregnancy NEGATIVE (NEGATIVE)
[2023-01-05 20:56] LABS: Bacteria Urine None Seen (None Seen); Hyaline Casts Urine 0-2 /LPF (0-2); RBC Urine 0-2 /HPF (0-2); Squamous Epithelial Cell Urine 0-2 /HPF (0-2); WBC Urine 0-5 /HPF (0-5)
[2023-01-05 21:03] LABS: MANUAL DIFF FLAG NO
[2023-01-05 21:04] LABS: Basophils Percent Auto 0.5 % (0-2); Eosinophils Absolute Auto 0.4 X10*3/uL (0.0-0.4); Eosinophils Percent Auto 5.3 % (0-4); Hematocrit 31.7 % (37.0-47.0); Hemoglobin 9.9 g/dl (12.0-16.0); Imm Gran Abs Auto 0.04 X10*3/uL (0.00-0.03); Imm Gran Pct Auto 0.5 % (0.0-0.4); Lymphocytes Absolute Auto 1.8 X10*3/uL (1.2-4.9); Mean Corpuscular HGB Conc 31.2 g/dl (31.0-35.0); Mean Corpuscular Hemoglobin 26.8 pg (27.0-33.0); Mean Corpuscular Volume 85.9 fL (80.0-98.0); Mean Platelet Volume 9.6 fL (9.4-12.3); Monocytes Absolute Auto 0.7 X10*3/uL (0.1-1.2); Monocytes Percent Auto 8.9 % (2-11); Neutrophils Absolute Auto 4.4 x10*3/uL (2.0-8.3); Neutrophils Percent Auto 60.8 % (45-73); Platelet Count 281 X10*3/uL (160-400); Red Blood Count 3.69 X10*6/uL (4.20-5.50); Red Cell Distribution Width 15.8 % (11.0-16.0); White Blood Count 7.3 X10*3/uL (4.8-10.8)
[2023-01-05 21:26] LABS: Amphetamine Screen Urine Not Detected (Not Detect); Barbiturates, Urine Not Detected (Not Detect); Benzodiazepines Screen Urine Not Detected (Not Detect); Cannabinoid Screen Urine Not Detected (Not Detect); Cocaine Screen Urine Not Detected (Not Detect); Fentanyl, urine Not Detected (Not Detect); Opiate Screen Urine Not Detected (Not Detect); Phencyclidine Screen Urine Not Detected (Not Detect)
[2023-01-05 21:37] LABS: Ethanol < 10 mg/dL
[2023-01-05 21:42] LABS: Acetaminophen LAB < 17 mcg/mL (<30); Alanine Aminotransferase 16 U/L (0-31); Alkaline Phosphatase 109 U/L (39-117); Anion Gap 13 (12-20); Aspartate Amino Transferase 14 U/L (5-31); Bilirubin Total < 0.2 mg/dL (0.0-1.0); Blood Urea Nitrogen 13 mg/dL (9-16); Calcium 8.5 mg/dL (8.4-10.2); Carbon Dioxide 25 mmol/L (22-29); Chloride 107 mmol/L (96-108); Creatinine Clr Calc Pharmacy 110.2; Estimated Glomerular Filt Rate > 60; Glucose Random 110 mg/dL (60-115); Salicylate < 5.0 mg/dL (15-30); Sodium 141 mmol/L (135-145); Total Protein 6.3 g/dL (6.5-8.0)
--- NOTE | 2023-01-06 05:58 | PC.NURSE ---
patient slept through the night, no distress observed/reported, patient will be re-evaluated by care team in the morning, behavior non concerning, VSS, med rec completed/pending provider's approval, all labs ordered completed and resulted, will continue to monitor.
[2023-01-06 06:08] VITALS: BP 130/85; PULSE 88; RESP 16; TEMP 36.8; O2SAT 98
--- NOTE | 2023-01-06 09:04 | MHC.EDTECH ---
attempted to call [phone] to update them on patient and facilitate [facility]. no answer, voicemail left requesting call back.
--- NOTE | 2023-01-06 09:21 | PC.NURSE ---
awoke w nad and pleasant, denies si, steady gait, speech clear, motivated to get home by 10 because my check is there and I want to puga it
== END 2023-01-06 09:22 | disposition home or self-care (01) ==
PROVIDERS: Emergency Provider Emergency Medicine; PCP Nurse Practitioner Family
DX: F33.1 Major depressive disorder, recurrent, moderate (principal); R45.851 Suicidal ideations; F17.210 Nicotine dependence, cigarettes, uncomplicated; Z79.899 Other long term (current) drug therapy; Z20.822 Contact with and (suspected) exposure to COVID-19; Z20.828 Contact with and (suspected) exposure to other viral communicable diseases; Z71.6 Tobacco abuse counseling
CPT/HCPCS: 36415; 80053; 80143; 80179; 80307; 81001; 81025; 82077; 85025; 87635; 99284

== ENCOUNTER 2023-01-10 21:46 | Emergency (ER) | payer OTHER, MEDICARE, MEDICAID, SELFPAY ==
[2023-01-10 21:50] VITALS: BP 132/78; PULSE 80; O2SAT 98; BMI 32.3
[2023-01-10 21:56] VITALS: BP 148/88; PULSE 98; RESP 16; TEMP 37.2; O2SAT 95
--- NOTE | 2023-01-10 22:27 | ED.ABDPAIN ---
HPI - Abdominal Pain General Chief Complaint: Abdominal Pain Stated Complaint: lower abdominal pain Time Seen by Provider: 01/10/23 22:23 Source: patient Mode of arrival: ambulatory Limitations: no limitations History of Present Illness HPI narrative: Patient 47 years old with history of depression, bipolar disorder, PTSD, diabetes good, chronic constipation comes here for as she has not urinated for last 2 days and been constipated for last few days patient said that she is not drinking enough fluids Related Data Home Medications Medication Instructions Recorded Confirmed atorvastatin 10 mg tablet 10 mg PO DAILY 05/29/21 01/05/23 metformin 500 mg tablet 1 tab PO BID 05/29/21 01/05/23 montelukast 10 mg tablet 1 tab PO BEDTIME 05/29/21 01/05/23 lisinopril 5 mg tablet 1 tab PO DAILY 07/30/22 01/05/23 nicotine (polacrilex) 4 mg gum 1 ea PO Q2H PRN Smoking Cessation 07/30/22 01/05/23 trazodone 150 mg tablet 1 tab PO BEDTIME 09/23/22 01/05/23 benztropine 1 mg tablet 1 mg PO BID 12/19/22 01/05/23 ferrous sulfate 325 mg (65 mg 325 mg PO DAILY 12/19/22 01/06/23 iron) tablet albuterol sulfate 90 mcg/actuation 2 puff inhalation Q4-6H PRN 12/24/22 01/05/23 aerosol inhaler (Ventolin HFA) Shortness Of Breath Or Wheezing chlorpromazine 50 mg tablet 1 tab PO TID PRN Agitation 12/24/22 01/05/23 fluoxetine 40 mg capsule 2 cap PO DAILY 12/24/22 01/05/23 fluphenazine HCl 5 mg tablet 1 tab PO BID 12/24/22 01/05/23 mirtazapine 15 mg tablet 0.5 tab PO DAILY 12/24/22 01/05/23 pantoprazole 40 mg tablet,delayed 1 tab PO DAILY@0630 12/24/22 01/05/23 release Previous Rx's Medication Instructions Recorded prazosin 1 mg capsule 4 mg PO BEDTIME 30 days #120 caps 10/18/21 Allergies Allergy/AdvReac Type Severity Reaction Status Date / Time Fish Containing Products Allergy Severe ANAPHYLAXIS Verified 12/24/22 11:47 codeine [Codeine] Allergy Intermediate RASH Verified 12/24/22 11:47 Penicillins Allergy Intermediate RASH Verified 12/24/22 11:47 prednisone [Prednisone] Allergy Intermediate RASH Verified 12/24/22 11:47 Sulfa (Sulfonamide Allergy Intermediate RASH Verified 12/24/22 11:47 Antibiotics) [Sulfa (Sulfonamides)] azithromycin [AZITHROMYCIN] AdvReac Severe RASH Verified 12/24/22 11:47 ziprasidone [From Geodon] AdvReac Intermediate dysuria, Verified 12/24/22 11:47 rash Review of Systems Review of Systems Yes all other systems are reviewed and are negative [facility] Past Medical History Medical History Acetaminophen overdose Borderline personality disorder Bronchitis Depression Diabetes type 2, controlled Full body hives GERD (gastroesophageal reflux disease) History of attempted suicide History of non-suicidal self-harm Hyperlipidemia Hypomagnesemia Major depression MDD (major depressive disorder), recurrent episode, severe Mood disorder Overdose PTSD (post-traumatic stress disorder) Suicide attempt Suicide attempt by acetaminophen overdose Social History Social History Household Members: Other Household Members Other:: half-way Housing: Other Housing Other:: half-way Do you presently have visiting nurse or other home services: No Unable to assess alcohol history related to: Unknown Alcohol intake: unknown Patient Tobacco Use Status: Current everyday Tobacco user Tobacco use type: Cigarette Cigarette Packs Per Day: 1 Cigarettes Per Day: 16 Years Smoked: 20 e-Cigarette/Vaping Use: Never Used Substance Use Type: Marijuana Advance Directives: No Advance Directives Information Provided: No service: No Current occupational status: unemployed and disabled Sexual orientation: Don't Know Physical Exam ED Vital Signs: Vital Signs - 24 hr 01/10/23 21:56 01/11/23 00:56 01/11/23 01:58 Temperature 99 F 97.4 F Pulse Rate 98 98 102 H Respiratory Rate 16 17 16 Blood Pressure 148/88 H 124/73 113/76 Pulse Oximetry 95 95 96 Oxygen Delivery Method Room Air Room Air Room Air BMI result Body Mass Index 32.3 Appearance: Alert. Oriented X3. No acute distress. Eyes: No pallor/ icterus ENT: Pharynx normal. Oral Mucosa moist Neck: Normal inspection. Neck supple. CVS: Normal heart rate and rhythm. Pulses normal. Respiratory: No respiratory distress. Equal air entry bilateral, Abdomen: Soft and nontender. Bowel sounds are present, no mass palpable, no CVA tenderness Skin: Skin warm and dry. Normal skin color. Normal skin turgor. Extremities: No lower extremity edema. No calf tenderness Neuro: Oriented X 3. No motor deficit. No sensory deficit Medical Decision Making Medical Decision Making [facility] Narrative: Patient acute urinary retention etiology not clear likely from the medication she using a straight cath was use and 1300 cc were drained patient felt much better now discharge patient back to rehab advised to drink plenty of fluids return to ER if retention happened Lab Data [facility] Lab Attestation statement: I reviewed the patient's lab results. Labs: Lab Results 01/11/23 Range/Units 00:22 Urine Color Yellow Urine Appearance Clear Urine pH 6.5 (5.0-9.0) Ur Specific [place] 1.010 (1.005-1.025) Urine Protein Negative (Neg-Trace) mg/dL Urine Glucose (UA) Negative (Negative) mg/dL Urine Ketones Negative (Negative) mg/dL Urine Blood Negative (Negative) Urine Nitrite Negative (Negative) Ur Leukocyte Esterase Negative (Negative) Medications Administered Discontinued Medications Generic Name Dose Route Start Last Admin Trade Name Freq PRN Reason Stop Dose Admin Magnesium Hydroxide 30 ml 01/10/23 22:56 01/11/23 00:32 Milk Of Magnesia 30 Ml Oral.Susp PO 01/10/23 22:57 30 ml ONCE ONE Administration Discharge Plan Discharge Clinical Impression: Acute urinary retention Patient Disposition: Home, Self-Care Instructions: Acute Urinary Retention in Women (ED) Additional Instructions: Drink plenty of fluids Likely have bladder spasm causing the retention Report to the ER if unable to urinate Prescriptions: No Action metformin 500 mg tablet 1 tab PO BID atorvastatin 10 mg tablet 10 mg PO DAILY montelukast 10 mg tablet 1 tab PO BEDTIME nicotine (polacrilex) 4 mg gum 1 ea PO Q2H PRN (Reason: Smoking Cessation) lisinopril 5 mg tablet 1 tab PO DAILY ferrous sulfate 325 mg (65 mg iron) Tablet 325 mg PO DAILY benztropine [Cogentin] 1 mg Tablet 1 mg PO BID fluoxetine 40 mg capsule 2 cap PO DAILY pantoprazole 40 mg tablet,delayed release (DR/EC) 1 tab PO DAILY@0630 mirtazapine 15 mg tablet 0.5 tab PO DAILY albuterol sulfate [Ventolin HFA] 90 mcg/actuation HFA aerosol inhaler 2 puff inhalation Q4-6H PRN (Reason: Shortness Of Breath Or Wheezing) fluphenazine HCl 5 mg tablet 1 tab PO BID chlorpromazine 50 mg tablet 1 tab PO TID PRN (Reason: Agitation) prazosin 1 mg Capsule 4 mg PO BEDTIME 30 Days Qty: 120 0RF Protocol: Hold for SBP< HOLD for SBP < : 90 trazodone 150 mg tablet 1 tab PO BEDTIME
[2023-01-11 00:31] LABS: Appearance Urine Clear; Color Urine Yellow; Glucose Urine UA Negative (Negative); Leukocyte Esterase Urine Negative (Negative); Nitrite Urine Negative (Negative); PH 6.5 (5.0-9.0); Urine Blood Negative (Negative); Urine Ketones Negative (Negative); Urine Protein Negative (Neg-Trace)
[2023-01-11] MEDS: Milk of Magnesia 30 ML ORAL.SUSP PO (00:32)
--- NOTE | 2023-01-11 00:49 | PC.NURSE ---
late entry-bladder scan performed, showed 999ml present in bladder. dr rabago made aware. straight catheter order placed
--- NOTE | 2023-01-11 00:51 | PC.NURSE ---
late entry- straight catheter placed by this rn per pt request for female placement. 1300ml output from catheter. straight catheter removed. pt tolerated well. urine sample sent down to lab. pt medicated according to dec. pt drinking po liquids. dr rabago made aware of pt output of 1300ml
[2023-01-11 00:56] VITALS: BP 124/73; PULSE 98; RESP 17; TEMP 36.3; O2SAT 95
--- NOTE | 2023-01-11 01:35 | MHC.EDTECH ---
Call out to [facility] @0107 spoke to Clayton from dispatch to book BLS transport back to inpatient alexa [facility] eta of 0200 was given
--- NOTE | 2023-01-11 01:38 | PC.NURSE ---
pt restign on stretcher at this time. pt awaiting ambulance ride back to [facility]. pt reports feeling better and much more comfortable . pt positioned on r side at this time
[2023-01-11 01:58] VITALS: BP 113/76; PULSE 102; RESP 16; O2SAT 96
--- NOTE | 2023-01-11 02:07 | PC.NURSE ---
pt discharged via ambulance to [facility]. report given to ems report called to yonatan at [facility]. vss. pt ambulatory at discharge
== END 2023-01-11 02:11 | disposition home or self-care (01) ==
PROVIDERS: Emergency Provider Internal Medicine
DX: R33.9 Retention of urine, unspecified (principal); F17.210 Nicotine dependence, cigarettes, uncomplicated; Z71.6 Tobacco abuse counseling; Z79.899 Other long term (current) drug therapy
CPT/HCPCS: 51702; 51798; 81003; 99283; 99285

== ENCOUNTER 2023-01-15 20:15 | Emergency (ER) | payer MEDICARE, MEDICAID, SELFPAY ==
[2023-01-15 20:20] VITALS: BP 152/96; PULSE 132; RESP 18; O2SAT 96; BMI 41.6
--- NOTE | 2023-01-15 20:28 | ED_ITS ---
HPI - Psych General Chief Complaint: Psychiatric Symptoms Stated Complaint: SI Time Seen by Provider: 01/15/23 21:48 Source: patient and EMS Mode of arrival: EMS Limitations: no limitations History of Present Illness HPI Narrative: 47-year-old female presents via EMS for evaluation for self-injurious behaviors. MD complaint: feels depressed and anxiety Onset (ago): year(s) Duration: constant History of same: Yes Relieving factors: none Associated psychiatric symptoms: depression and racing thoughts If self harm: admits thoughts of self harm and self-inflicted trauma Related Data Home Medications Medication Instructions Recorded Confirmed atorvastatin 10 mg tablet 10 mg PO DAILY 05/29/21 01/15/23 metformin 500 mg tablet 1 tab PO BID 05/29/21 01/15/23 montelukast 10 mg tablet 1 tab PO BEDTIME 05/29/21 01/15/23 lisinopril 5 mg tablet 1 tab PO DAILY 07/30/22 01/15/23 nicotine (polacrilex) 4 mg gum 1 ea PO Q2H PRN Smoking Cessation 07/30/22 01/15/23 trazodone 150 mg tablet 1 tab PO BEDTIME 09/23/22 01/15/23 benztropine 1 mg tablet 1 mg PO BID 12/19/22 01/15/23 ferrous sulfate 325 mg (65 mg 325 mg PO DAILY 12/19/22 01/15/23 iron) tablet albuterol sulfate 90 mcg/actuation 2 puff inhalation Q4-6H PRN 12/24/22 01/15/23 aerosol inhaler (Ventolin HFA) Shortness Of Breath Or Wheezing chlorpromazine 50 mg tablet 1 tab PO TID PRN Agitation 12/24/22 01/15/23 fluoxetine 40 mg capsule 2 cap PO DAILY 12/24/22 01/15/23 fluphenazine HCl 5 mg tablet 1 tab PO BID 12/24/22 01/15/23 mirtazapine 15 mg tablet 0.5 tab PO DAILY 12/24/22 01/15/23 pantoprazole 40 mg tablet,delayed 1 tab PO DAILY@0630 12/24/22 01/15/23 release Previous Rx's Medication Instructions Recorded prazosin 1 mg capsule 4 mg PO BEDTIME 30 days #120 caps 10/18/21 cefuroxime axetil 500 mg tablet 500 mg PO Q12H 7 days #14 tabs 01/16/23 Allergies Allergy/AdvReac Type Severity Reaction Status Date / Time Fish Containing Products Allergy Severe ANAPHYLAXIS Verified 12/24/22 11:47 codeine [Codeine] Allergy Intermediate RASH Verified 12/24/22 11:47 Penicillins Allergy Intermediate RASH Verified 12/24/22 11:47 prednisone [Prednisone] Allergy Intermediate RASH Verified 12/24/22 11:47 Sulfa (Sulfonamide Allergy Intermediate RASH Verified 12/24/22 11:47 Antibiotics) [Sulfa (Sulfonamides)] azithromycin [AZITHROMYCIN] AdvReac Severe RASH Verified 12/24/22 11:47 ziprasidone [From Geodon] AdvReac Intermediate dysuria, Verified 12/24/22 11:47 rash Review of Systems Review of Systems: Constitutional: No Fever, No Chills Cardiovascular: No Chest Pain, No SOB Respiratory: No Cough, No Sputum Gastrointestinal: No Nausea, No Vomiting, No Diarrhea, No abdominal Pain Genitourinary: No Dysuria, No Hematuria Musculoskeletal: No joint pain, No Myalgias, No Joint Swelling Skin: Positive self-inflicted lacerations, No Skin Lesions, No rash Neuro: No Weakness, No Numbness, No Dizziness, No Headache Psych: Positive Anxiety, No Depression, No SI/HI/AH/VH Yes all other systems are reviewed and are negative PMFSH Past Medical History Attestation statement: The following information was validated with the patient. Source: old records reviewed Medical History Acetaminophen overdose Borderline personality disorder Bronchitis Depression Diabetes type 2, controlled Full body hives GERD (gastroesophageal reflux disease) History of attempted suicide History of non-suicidal self-harm Hyperlipidemia Hypomagnesemia Major depression MDD (major depressive disorder), recurrent episode, severe Mood disorder Overdose PTSD (post-traumatic stress disorder) Suicide attempt Suicide attempt by acetaminophen overdose Social History Social History Household Members: Other Household Members Other:: prison Housing: Other Housing Other:: prison Do you presently have visiting nurse or other home services: No Unable to assess alcohol history related to: Unknown Alcohol intake: unknown Patient Tobacco Use Status: Current everyday Tobacco user Tobacco use type: Cigarette Cigarette Packs Per Day: 1 Cigarettes Per Day: 16 Years Smoked: 20 e-Cigarette/Vaping Use: Never Used Substance Use Type: Marijuana Advance Directives: No Advance Directives Information Provided: No service: No Current occupational status: unemployed and disabled Sexual orientation: Don't Know Physical Exam Vital Signs: Vital Signs: Last Vital Signs Pulse 132 H 01/15/23 20:20 Resp 18 01/15/23 20:20 BP 152/96 H 01/15/23 20:20 Pulse Ox 96 01/15/23 20:20 O2 Del Method Room Air 01/15/23 20:20 BMI result Body Mass Index 41.6 Appearance: Alert. Oriented X3. No acute distress. Eyes: Pupils equal, round and reactive to light. Neck: Normal inspection. Neck supple. CVS: Normal heart rate and rhythm. Pulses normal. Respiratory: No respiratory distress. Breath sounds normal. Abdomen: Soft and nontender. Skin: Numerous self-inflicted superficial lacerations to arms and abdomen, numerous scars throughout extremities Extremities: No lower extremity edema. Gait balance and coordinated. Neuro: No motor deficit. No sensory deficit. Cranial nerves 2-12 intact. Course Course Course Narrative: 47-year-old female presents via EMS for anxiety and evaluation for superficial lacerations that and self-inflicted. Patient has a longstanding history of anxiety with self-injurious behaviors. Patient is not reporting suicidal or homicidal ideation at this time. Patient states that she has significant anxiety. Patient is alert oriented x4, answering questions politely and appropriately, appears nontoxic. Will follow this patient's care plan. 21:56 patient is asking to be discharged home. Patient is not suicidal or homi cidal, plan of care is to discharge to prison facility. Medications Administered Discontinued Medications Generic Name Dose Route Start Last Admin Trade Name Freq PRN Reason Stop Dose Admin Lorazepam 2 mg 01/15/23 20:23 01/15/23 20:52 Lorazepam 1 Mg Tablet PO 01/15/23 20:24 2 mg ONCE ONE Administration Medical Decision Making Differential Diagnosis Differential Diagnoses: The differential diagnosis associated with the pre sentation includes Anxiety, depression Lab Data MDM Lab Attestation statement: I reviewed the patient's lab results. Labs: Lab Results 01/15/23 01/15/23 01/15/23 Range/Units 20:57 21:28 21:28 Urine Color Urine Appearance Urine pH (5.0-9.0) Ur Specific [place] (1.005-1.025) Urine Protein (Neg-Trace) mg/dL Urine Glucose (UA) (Negative) mg/dL Urine Ketones (Negative) mg/dL Urine Blood (Negative) Urine Nitrite (Negative) Ur Leukocyte Esterase (Negative) Urine RBC (0-2) /HPF Urine WBC (0-5) /HPF Ur Squamous Epith Cells (0-2) /HPF Urine Bacteria (None Seen) Hyaline Casts (0-2) /LPF Urine Test NEGATIVE (NEGATIVE) Salicylates (15-30) mg/dL Urine Opiates Screen Not Detected (Not Detect) Urine Fentanyl Screen Not Detected (Not Detect) Acetaminophen (<30) mcg/mL Ur Barbiturates Screen Not Detected (Not Detect) Ur Phencyclidine Scrn Not Detected (Not Detect) Ur Amphetamines Screen Not Detected (Not Detect) U Benzodiazepines Scrn Not Detected (Not Detect) Urine Cocaine Screen Not Detected (Not Detect) U Marijuana (THC) Screen Not Detected (Not Detect) Ethyl Alcohol mg/dL COVID-19 (NICK) Negative (Negative) COVID-19 Clin Com See Note 01/15/23 01/15/23 Range/Units 21:28 21:48 Urine Color Yellow Urine Appearance Cloudy Urine pH 5.5 (5.0-9.0) Ur Specific [place] 1.010 (1.005-1.025) Urine Protein Negative (Neg-Trace) mg/dL Urine Glucose (UA) Negative (Negative) mg/dL Urine Ketones Negative (Negative) mg/dL Urine Blood Negative (Negative) Urine Nitrite Positive H (Negative) Ur Leukocyte Esterase Large (3+) H (Negative) Urine RBC 0-2 (0-2) /HPF Urine WBC >50 H (0-5) /HPF Ur Squamous Epith Cells 3-5 (0-2) /HPF Urine Bacteria 4+ (None Seen) Hyaline Casts 0-2 (0-2) /LPF Urine Test (NEGATIVE) Salicylates < 5.0 L (15-30) mg/dL Urine Opiates Screen (Not Detect) Urine Fentanyl Screen (Not Detect) Acetaminophen < 17 (<30) mcg/mL Ur Barbiturates Screen (Not Detect) Ur Phencyclidine Scrn (Not Detect) Ur Amphetamines Screen (Not Detect) U Benzodiazepines Scrn (Not Detect) Urine Cocaine Screen (Not Detect) U Marijuana (THC) Screen (Not Detect) Ethyl Alcohol < 10 mg/dL COVID-19 (NICK) (Negative) COVID-19 Clin Com External Record Review External record reviewed: Inpatient record, Outpatient record, Prior outpatient labs and Prior outpatient radiology Prescription Management I considered prescription management with: Antibiotic Social Determinants Patient?s care significantly limited by Social Determinants of Health including: Other Social Determinant of Health Discharge Plan Discharge Clinical Impression: Acute anxiety, UTI (urinary tract infection) Patient Disposition: Home, Self-Care Instructions: Urinary Tract Infection in Women (DC), Anxiety (ED) Additional Instructions: Follow-up with outpatient psychiatry. For urinary tract infection. Please take cefuroxime 500 mg twice a day for the next 7 days. Drink plenty of fluids Thank you for choosing this emergency department for evaluation. Please follow-up with primary care physician as needed. Return to the emergency department for any new, concerning, or worsening symptoms. Prescriptions: New cefuroxime axetil 500 mg tablet 500 mg PO Q12H 7 Days Qty: 14 0RF No Action metformin 500 mg tablet 1 tab PO BID atorvastatin 10 mg tablet 10 mg PO DAILY montelukast 10 mg tablet 1 tab PO BEDTIME nicotine (polacrilex) 4 mg gum 1 ea PO Q2H PRN (Reason: Smoking Cessation) lisinopril 5 mg tablet 1 tab PO DAILY ferrous sulfate 325 mg (65 mg iron) Tablet 325 mg PO DAILY benztropine [Cogentin] 1 mg Tablet 1 mg PO BID fluoxetine 40 mg capsule 2 cap PO DAILY pantoprazole 40 mg tablet,delayed release (DR/EC) 1 tab PO DAILY@0630 mirtazapine 15 mg tablet 0.5 tab PO DAILY albuterol sulfate [Ventolin HFA] 90 mcg/actuation HFA aerosol inhaler 2 puff inhalation Q4-6H PRN (Reason: Shortness Of Breath Or Wheezing) fluphenazine HCl 5 mg tablet 1 tab PO BID chlorpromazine 50 mg tablet 1 tab PO TID PRN (Reason: Agitation) prazosin 1 mg Capsule 4 mg PO BEDTIME 30 Days Qty: 120 0RF Protocol: Hold for SBP< HOLD for SBP < : 90 trazodone 150 mg tablet 1 tab PO BEDTIME Interventions: [place]-Suicide Risk Severity Scale Last Done: 01/15/23 22:11 ED Discharge Assessment Last Done: 01/15/23 22:25 Discharge Date/Time: 01/15/23 22:31
[2023-01-15] MEDS: LORazepam 1 MG TABLET 2 MG PO (20:52)
[2023-01-15 21:19] LABS: COVID-19 Test Negative (Negative); IDNOW Serial# 55D5AD1C
[2023-01-15 21:38] LABS: Appearance Urine Cloudy; Color Urine Yellow; Glucose Urine UA Negative (Negative); Leukocyte Esterase Urine Large (3+) (Negative); Nitrite Urine Positive (Negative); PH 5.5 (5.0-9.0); UMIC TRIGGER UA YES; Urine Blood Negative (Negative); Urine Ketones Negative (Negative); Urine Protein Negative (Neg-Trace)
[2023-01-15 21:39] LABS: UPreg QC Valid YES; Urine Pregnancy NEGATIVE (NEGATIVE)
[2023-01-15 21:43] LABS: Bacteria Urine 4+ (None Seen); Hyaline Casts Urine 0-2 /LPF (0-2); RBC Urine 0-2 /HPF (0-2); WBC Urine >50 /HPF (0-5)
[2023-01-15 21:47] LABS: Amphetamine Screen Urine Not Detected (Not Detect); Barbiturates, Urine Not Detected (Not Detect); Benzodiazepines Screen Urine Not Detected (Not Detect); Cannabinoid Screen Urine Not Detected (Not Detect); Cocaine Screen Urine Not Detected (Not Detect); Fentanyl, urine Not Detected (Not Detect); Opiate Screen Urine Not Detected (Not Detect); Phencyclidine Screen Urine Not Detected (Not Detect)
[2023-01-15 22:09] LABS: Acetaminophen LAB < 17 mcg/mL (<30); Ethanol < 10 mg/dL; Salicylate < 5.0 mg/dL (15-30)
--- NOTE | 2023-01-15 23:26 | MHC.CARE ---
Pt came into [facility] ED POD via EMS due to her calling them from her skilled nursing because she had superficially cut her forearms and stomach area. Pt denied SI/HI/AVH and wanted to return to the skilled nursing after she was treated. ED provider JNU Ponce agreed to let the pt d/c without being seen by the CARE Team, even though there was a consult for the CARE Team to see her. ED provider JUN Ponce stated that there was no reason to have the CARE Team see the pt as she was denying SI/HI/AVH. Pt came to the ED because she was scared of her cuts and wanted them to be looked at. CARE Team met with the pt briefly and asked safety questions and the pt stated that she was safe to return to the skilled nursing. CARE Team then called the skilled nursing and informed them that the pt was being d/c and asked if they had any concerns. [facility] stated that they didn't have any concerns for the pt to return. CARE Team then scheduled a Lyft ride for the pt and she left the ED.
== END 2023-01-15 22:31 | disposition home or self-care (01) ==
PROVIDERS: Nurse Practitioner Family; Emergency Provider Internal Medicine
DX: F33.1 Major depressive disorder, recurrent, moderate (principal); N39.0 Urinary tract infection, site not specified; F41.1 Generalized anxiety disorder; F43.0 Acute stress reaction; R45.851 Suicidal ideations; Z20.822 Contact with and (suspected) exposure to COVID-19; Z20.828 Contact with and (suspected) exposure to other viral communicable diseases; Z79.899 Other long term (current) drug therapy
CPT/HCPCS: 36415; 80143; 80179; 80307; 81001; 81025; 82077; 87635; 99283; 99284

== ENCOUNTER 2023-01-23 19:36 | Emergency (ER) | payer MEDICARE, MEDICAID, SELFPAY ==
--- NOTE | ~2023-01-23 | XR_ITS ---
EXAMINATION: XR KNEE, LEFT CLINICAL INFORMATION: Left knee pain status post fall, ecchymosis. COMPARISON: Left knee radiographs dated 03/29/2019. TECHNIQUE: Four views of the left knee. FINDINGS: Bones and soft tissues are normal. No fracture or joint effusion. Alignment is anatomic. Joint spaces are well maintained. No abnormal soft tissue calcification. XR/XR knee LT 3V IMPRESSION: Unremarkable left knee.
--- NOTE | 2023-01-23 20:18 | ED.LOWEXIN ---
HPI - Extremity Injury (Lower) General Chief Complaint: Fall <TIMI Sims Last Filed: 01/23/23 20:24> Stated Complaint: left leg pain <TIMI Sims Last Filed: 01/23/23 20:24> Time Seen by Provider: 01/23/23 22:56 <TIMI Sims Last Filed: 01/23/23 20:24> Source: patient <TIMI Cruz Last Filed: 01/24/23 00:52> Mode of arrival: ambulatory <TIMI Cruz Last Filed: 01/24/23 00:52> Limitations: no limitations <TIMI Cruz Last Filed: 01/24/23 00:52> History of Present Illness HPI Narrative: 47-year-old female past medical history significant personality depression bipolar 2 with melancholic features, PTSD, DM, GERD presents via ambulance?for complaints left sided knee pain status post fall today, patient reports she has fallen multiple times today, she reports she is falling because she is feeling dizzy, describes dizziness as the room spinning and then patient falls. It is worse when patient changes positions rapidly. Each time patient has fallen patient has not hit her head or lost consciousness. Patient denies fevers, chills, headache, vision changes, dizziness, weakness, numbness, tingling, nausea, vomiting, abdominal pain. <TIMI Cruz Last Filed: 01/24/23 00:52> Related Data Home Medications: Home Medications Medication Instructions Recorded Confirmed atorvastatin 10 mg tablet 10 mg PO DAILY 05/29/21 01/15/23 metformin 500 mg tablet 1 tab PO BID 05/29/21 01/15/23 montelukast 10 mg tablet 1 tab PO BEDTIME 05/29/21 01/15/23 lisinopril 5 mg tablet 1 tab PO DAILY 07/30/22 01/15/23 nicotine (polacrilex) 4 mg gum 1 ea PO Q2H PRN Smoking Cessation 07/30/22 01/15/23 trazodone 150 mg tablet 1 tab PO BEDTIME 09/23/22 01/15/23 benztropine 1 mg tablet 1 mg PO BID 12/19/22 01/15/23 ferrous sulfate 325 mg (65 mg 325 mg PO DAILY 12/19/22 01/15/23 iron) tablet albuterol sulfate 90 mcg/actuation 2 puff inhalation Q4-6H PRN 12/24/22 01/15/23 aerosol inhaler (Ventolin HFA) Shortness Of Breath Or Wheezing chlorpromazine 50 mg tablet 1 tab PO TID PRN Agitation 12/24/22 01/15/23 fluoxetine 40 mg capsule 2 cap PO DAILY 12/24/22 01/15/23 fluphenazine HCl 5 mg tablet 1 tab PO BID 12/24/22 01/15/23 mirtazapine 15 mg tablet 0.5 tab PO DAILY 12/24/22 01/15/23 pantoprazole 40 mg tablet,delayed 1 tab PO DAILY@0630 12/24/22 01/15/23 release Previous Rx's Medication Instructions Recorded prazosin 1 mg capsule 4 mg PO BEDTIME 30 days #120 caps 10/18/21 cefuroxime axetil 500 mg tablet 500 mg PO Q12H 7 days #14 tabs 01/16/23 ketorolac 10 mg tablet 10 mg PO TID PRN pain 5 days #10 01/24/23 tabs meclizine 25 mg tablet 25 mg PO DAILY PRN dizziness #6 01/24/23 tabs nitrofurantoin 100 mg PO BID 5 days #10 caps 01/24/23 monohydrate/macrocrystals 100 mg capsule (Macrobid) phenazopyridine 100 mg tablet 200 mg PO TID 2 days #6 tabs 01/24/23 (Pyridium) <TIMI Sims - Last Filed: 01/23/23 20:24> Allergies/Adverse Reactions: Allergies Allergy/AdvReac Type Severity Reaction Status Date / Time Fish Containing Products Allergy Severe ANAPHYLAXIS Verified 12/24/22 11:47 codeine [Codeine] Allergy Intermediate RASH Verified 12/24/22 11:47 Penicillins Allergy Intermediate RASH Verified 12/24/22 11:47 prednisone [Prednisone] Allergy Intermediate RASH Verified 12/24/22 11:47 Sulfa (Sulfonamide Allergy Intermediate RASH Verified 12/24/22 11:47 Antibiotics) [Sulfa (Sulfonamides)] azithromycin [AZITHROMYCIN] AdvReac Severe RASH Verified 12/24/22 11:47 ziprasidone [From Geodon] AdvReac Intermediate dysuria, Verified 12/24/22 11:47 rash <TIMI Sims - Last Filed: 01/23/23 20:24> Review of Systems Review of Systems: Constitutional : No Weight loss, No Fever, No Chills, No Fatigue, No Malaise ENT/Mouth : No sore throat, No Rhinorrhea Eyes: No Eye Pain, No Swelling, No Redness Cardiovascular : No Chest Pain, No SOB, No Dyspnea on Exertion, No Orthopnea, No Edema, No Palpitations Respiratory : No Cough, No Sputum, No Wheezing Gastrointestinal : No Nausea, No Vomiting, No Diarrhea, No Constipation, No abdominal Pain, No Hematochezia, No Melena Genitourinary : No Dysuria, No Urinary Frequency, No Hematuria, Musculoskeletal : + joint pain, No Myalgias, + Joint Swelling Skin : No Skin Lesions, No rash Neuro : No Weakness, No Numbness, + Dizziness, No Headache Psych : No Anxiety/Panic, No Depression All other systems reviewed and are negative <TIMI Cruz - Last Filed: 01/24/23 00:52> Yes all other systems are reviewed and are negative <TIMI Cruz - Last Filed: 01/24/23 00:52> [facility] Past Medical History Attestation statement: The following information was validated with the patient. <TIMI Cruz - Last Filed: 01/24/23 00:52> Source: old records reviewed and nursing notes reviewed <TIMI Cruz - Last Filed: 01/24/23 00:52> Medical History: Medical History Acetaminophen overdose Borderline personality disorder Bronchitis Depression Diabetes type 2, controlled Full body hives GERD (gastroesophageal reflux disease) History of attempted suicide History of non-suicidal self-harm Hyperlipidemia Hypomagnesemia Major depression MDD (major depressive disorder), recurrent episode, severe Mood disorder Overdose PTSD (post-traumatic stress disorder) Suicide attempt Suicide attempt by acetaminophen overdose <TIMI Sims - Last Filed: 01/23/23 20:24> Social History Social History: Social History Household Members: Other Household Members Other:: retirement Housing: Other Housing Other:: retirement Do you presently have visiting nurse or other home services: No Unable to assess alcohol history related to: Unknown Alcohol intake: unknown Patient Tobacco Use Status: Current everyday Tobacco user Tobacco use type: Cigarette Cigarette Packs Per Day: 1 Cigarettes Per Day: 16 Years Smoked: 20 e-Cigarette/Vaping Use: Never Used Substance Use Type: Marijuana Advance Directives: No Advance Directives Information Provided: No service: No Current occupational status: unemployed and disabled Sexual orientation: Don't Know <TIMI iSms - Last Filed: 01/23/23 20:24> Physical Exam Vital Signs: Vital Signs: Last Vital Signs Temp 98.0 F 01/23/23 20:32 Pulse 105 H 01/24/23 00:30 Resp 18 01/23/23 20:32 BP 121/70 01/24/23 00:30 Pulse Ox 98 01/23/23 20:32 O2 Del Method Room Air 01/23/23 20:32 BMI result Body Mass Index 41.9 <TIMI Sims - Last Filed: 01/23/23 20:24> Vital Signs: Last Vital Signs Temp 98.0 F 01/23/23 20:32 Pulse 105 H 01/24/23 00:30 Resp 18 01/23/23 20:32 BP 121/70 01/24/23 00:30 Pulse Ox 98 01/23/23 20:32 O2 Del Method Room Air 01/23/23 20:32 BMI result Body Mass Index 41.9 vss <TIMI Cruz - Last Filed: 01/24/23 00:52> Appearance: Alert.? Oriented X3.? No acute distress.? Head: Normocephalic, atraumatic, no step-offs or deformities Eyes: Pupils equal, round and reactive to light.? Neck: Normal inspection.? Neck supple.? CVS: Normal heart rate and rhythm.? Pulses normal.? Respiratory: No respiratory distress.? Breath sounds normal.? Abdomen: Soft and nontender.? Skin: Skin warm and dry.? Normal skin color.? Normal skin turgor.? Extremities: No lower extremity edema.? No calf ttp. 5/5 strength to bilateral upper and lower extremities full range of motion to bilateral knees. Left knee with overlying ecchymosis, swelling. No step-offs or deformities. No laxity. Normal right knee. 2+ DP,AT,PT and popliteal pulses. Back: No CVA tenderness bilaterally Neuro: Oriented X 3.? No motor deficit.? No sensory deficit. CN 2-12 intact <TIMI Cruz - Last Filed: 01/24/23 00:52> Course Course Course Narrative: RME--47-year-old female PMHx borderline personality d/o, depression, DM, bipolar 2, PTSD, DM, GERD presents via EMS c/o L knee pain/bruising s/p fall off bed today. Admits felt lightheaded & fell, denies head trauma or LOC. Also reports ordorous urine. denies CP/SOB L knee with mild swelling & ecchymosis w/ttp EKG, labs, UA, XR, orthostatics ordered <TIMI Sims Last Filed: 01/23/23 20:24> Reevaluation(s) Reevaluation #1: Patient also reporting malodorous urine, urinary frequency, reports that she always feels horrible when she has a UTI and this feels similar. Denies flank pain. Her urine is showing nitrates and leukocyte esterases concerning for urinary tract infection will treat with Macrobid and Pyridium. CBC with no acute findings requiring intervention. Chemistry unremarkable. Troponin negative, EKG nonischemic. History and physical exam not consistent with pulmonary embolism, patient without significant risk factors, no shortness of breath, hypoxia. Unremarkable imaged of left knee. Will give patient Alberto wrap and crutches. Orthostatic vital signs negative. <TIMI Cruz - Last Filed: 01/24/23 00:52> Time: 00:46 <TIMI Cruz - Last Filed: 01/24/23 00:52> Medical Decision Making Medical Decision Making [facility] Narrative: 4 47-year-old female presents with left knee pain status post multiple falls today, reports she fell due to dizziness described as room spinning. No history of vertigo. No head trauma. Physical exam benign. Neuro nonfocal. Cerebellar intact. Left knee with overlying ecchymoses and swelling. Full range of motion however. No laxity. Concerns for contusion/knee sprain/strain. Unlikely fracture/dislocation. Unlikely neurovascular compromise. Dizziness concerning for BPPV vs vertigo. Unlikely ICH, stroke, or posterior stroke. Unlikely electrolyte abnormalities Plan- imaging, basic labs, UA, orthostatic hypotension <TIMI Cruz - Last Filed: 01/24/23 00:52> Differential Diagnosis Differential Diagnoses: The differential diagnosis associated with the presentation includes <TIMI Cruz - Last Filed: 01/24/23 00:52> Concerns for contusion/knee sprain/strain. Unlikely fracture/dislocation. Unlikely neurovascular compromise. Dizziness concerning for BPPV vs vertigo. Unlikely ICH, stroke, or posterior stroke. Unlikely electrolyte abnormalities <TIMI Cruz - Last Filed: 01/24/23 00:52> Admission/Observation Consideration of admission/observation: Escalation of care including admission/observation considered <TIMI Cruz - Last Filed: 01/24/23 00:52> Lab Data MDM Lab Attestation statement: I reviewed the patient's lab results. <TIMI Cruz - Last Filed: 01/24/23 00:52> Result Diagrams: 01/23/23 20:57 01/23/23 20:57 <TIMI Sims - Last Filed: 01/23/23 20:24> Labs: Lab Results 01/23/23 01/23/23 01/23/23 Range/Units 20:25 20:57 20:57 WBC 9.0 (4.8-10.8) X10*3/uL RBC 4.08 L (4.20-5.50) X10*6/uL Hgb 11.1 L (12.0-16.0) g/dl Hct 34.5 L (37.0-47.0) % MCV 84.6 (80.0-98.0) fL MCH 27.2 (27.0-33.0) pg MCHC 32.2 (31.0-35.0) g/dl RDW 15.5 (11.0-16.0) % Plt Count 268 (160-400) X10*3/uL MPV 9.5 (9.4-12.3) fL Immature Gran % (Auto) 0.4 (0.0-0.4) % Neut % (Auto) 68.0 (45-73) % Lymph % (Auto) 19.2 L (20-40) % [place] % (Auto) 8.7 (2-11) % Eos % (Auto) 3.4 (0-4) % Baso % (Auto) 0.3 (0-2) % Lymph # (Auto) 1.7 (1.2-4.9) X10*3/uL [place] # (Auto) 0.8 (0.1-1.2) X10*3/uL Eos # (Auto) 0.3 (0.0-0.4) X10*3/uL Baso # (Auto) 0.0 (0.0-0.2) X10*3/uL Abs Immat Gran (auto) 0.04 H (0.00-0.03) X10*3/uL Absolute Neuts (auto) 6.1 (2.0-8.3) x10*3/uL Absolute Nucleated RBC 0.000 (0.0-0.012) X10*3/uL Nucleated RBC % (auto) 0.0 (0.0-0.2) /100WBC Sodium 138 (135-145) mmol/L Potassium 4.3 (3.3-5.1) mmol/L Chloride 105 (96-108) mmol/L Carbon Dioxide 21 L (22-29) mmol/L Anion Gap 16 (12-20) BUN 19 H (9-16) mg/dL Creatinine 0.83 (0.5-1.4) mg/dL Estim Creat Clear Calc 111.8 Estimated GFR > 60 Random Glucose 128 H (60-115) mg/dL Calcium 9.2 D (8.4-10.2) mg/dL Magnesium 1.7 (1.6-2.6) mg/dL Total Bilirubin 0.2 (0.0-1.0) mg/dL Direct Bilirubin < 0.2 (0.0-0.5) mg/dL AST 15 (5-31) U/L ALT 12 (0-31) U/L Alkaline Phosphatase 107 (39-117) U/L Troponin I High Sens (<3.5-17.0) ng/L Total Protein 6.8 (6.5-8.0) g/dL Albumin 4.3 (3.5-5.0) g/dL Urine Color Yellow Urine Appearance Cloudy Urine pH 5.5 (5.0-9.0) Ur Specific [place] 1.015 (1.005-1.025) Urine Protein Negative (Neg-Trace) mg/dL Urine Glucose (UA) Negative (Negative) mg/dL Urine Ketones Negative (Negative) mg/dL Urine Blood Trace H (Negative) Urine Nitrite Positive H (Negative) Ur Leukocyte Esterase Large (3+) H (Negative) Urine RBC 3-5 H (0-2) /HPF Urine WBC >50 H (0-5) /HPF Ur Squamous Epith Cells 3-5 (0-2) /HPF Urine Bacteria 4+ (None Seen) Hyaline Casts 0-2 (0-2) /LPF 01/23/23 Range/Units 20:57 WBC (4.8-10.8) X10*3/uL RBC (4.20-5.50) X10*6/uL Hgb (12.0-16.0) g/dl Hct (37.0-47.0) % MCV (80.0-98.0) fL MCH (27.0-33.0) pg MCHC (31.0-35.0) g/dl RDW (11.0-16.0) % Plt Count (160-400) X10*3/uL MPV (9.4-12.3) fL Immature Gran % (Auto) (0.0-0.4) % Neut % (Auto) (45-73) % Lymph % (Auto) (20-40) % [place] % (Auto) (2-11) % Eos % (Auto) (0-4) % Baso % (Auto) (0-2) % Lymph # (Auto) (1.2-4.9) X10*3/uL [place] # (Auto) (0.1-1.2) X10*3/uL Eos # (Auto) (0.0-0.4) X10*3/uL Baso # (Auto) (0.0-0.2) X10*3/uL Abs Immat Gran (auto) (0.00-0.03) X10*3/uL Absolute Neuts (auto) (2.0-8.3) x10*3/uL Absolute Nucleated RBC (0.0-0.012) X10*3/uL Nucleated RBC % (auto) (0.0-0.2) /100WBC Sodium (135-145) mmol/L Potassium (3.3-5.1) mmol/L Chloride (96-108) mmol/L Carbon Dioxide (22-29) mmol/L Anion Gap (12-20) BUN (9-16) mg/dL Creatinine (0.5-1.4) mg/dL Estim Creat Clear Calc Estimated GFR Random Glucose (60-115) mg/dL Calcium (8.4-10.2) mg/dL Magnesium (1.6-2.6) mg/dL Total Bilirubin (0.0-1.0) mg/dL Direct Bilirubin (0.0-0.5) mg/dL AST (5-31) U/L ALT (0-31) U/L Alkaline Phosphatase (39-117) U/L Troponin I High Sens < 2.7 (<3.5-17.0) ng/L Total Protein (6.5-8.0) g/dL Albumin (3.5-5.0) g/dL Urine Color Urine Appearance Urine pH (5.0-9.0) Ur Specific [place] (1.005-1.025) Urine Protein (Neg-Trace) mg/dL Urine Glucose (UA) (Negative) mg/dL Urine Ketones (Negative) mg/dL Urine Blood (Negative) Urine Nitrite (Negative) Ur Leukocyte Esterase (Negative) Urine RBC (0-2) /HPF Urine WBC (0-5) /HPF Ur Squamous Epith Cells (0-2) /HPF Urine Bacteria (None Seen) Hyaline Casts (0-2) /LPF <TIMI Sims - Last Filed: 01/23/23 20:24> Lab Results 01/23/23 01/23/23 01/23/23 Range/Units 20:25 20:57 20:57 WBC 9.0 (4.8-10.8) X10*3/uL RBC 4.08 L (4.20-5.50) X10*6/uL Hgb 11.1 L (12.0-16.0) g/dl Hct 34.5 L (37.0-47.0) % MCV 84.6 (80.0-98.0) fL MCH 27.2 (27.0-33.0) pg MCHC 32.2 (31.0-35.0) g/dl RDW 15.5 (11.0-16.0) % Plt Count 268 (160-400) X10*3/uL MPV 9.5 (9.4-12.3) fL Immature Gran % (Auto) 0.4 (0.0-0.4) % Neut % (Auto) 68.0 (45-73) % Lymph % (Auto) 19.2 L (20-40) % [place] % (Auto) 8.7 (2-11) % Eos % (Auto) 3.4 (0-4) % Baso % (Auto) 0.3 (0-2) % Lymph # (Auto) 1.7 (1.2-4.9) X10*3/uL [place] # (Auto) 0.8 (0.1-1.2) X10*3/uL Eos # (Auto) 0.3 (0.0-0.4) X10*3/uL Baso # (Auto) 0.0 (0.0-0.2) X10*3/uL Abs Immat Gran (auto) 0.04 H (0.00-0.03) X10*3/uL Absolute Neuts (auto) 6.1 (2.0-8.3) x10*3/uL Absolute Nucleated RBC 0.000 (0.0-0.012) X10*3/uL Nucleated RBC % (auto) 0.0 (0.0-0.2) /100WBC Sodium 138 (135-145) mmol/L Potassium 4.3 (3.3-5.1) mmol/L Chloride 105 (96-108) mmol/L Carbon Dioxide 21 L (22-29) mmol/L Anion Gap 16 (12-20) BUN 19 H (9-16) mg/dL Creatinine 0.83 (0.5-1.4) mg/dL Estim Creat Clear Calc 111.8 Estimated GFR > 60 Random Glucose 128 H (60-115) mg/dL Calcium 9.2 D (8.4-10.2) mg/dL Magnesium 1.7 (1.6-2.6) mg/dL Total Bilirubin 0.2 (0.0-1.0) mg/dL Direct Bilirubin < 0.2 (0.0-0.5) mg/dL AST 15 (5-31) U/L ALT 12 (0-31) U/L Alkaline Phosphatase 107 (39-117) U/L Troponin I High Sens (<3.5-17.0) ng/L Total Protein 6.8 (6.5-8.0) g/dL Albumin 4.3 (3.5-5.0) g/dL Urine Color Yellow Urine Appearance Cloudy Urine pH 5.5 (5.0-9.0) Ur Specific [place] 1.015 (1.005-1.025) Urine Protein Negative (Neg-Trace) mg/dL Urine Glucose (UA) Negative (Negative) mg/dL Urine Ketones Negative (Negative) mg/dL Urine Blood Trace H (Negative) Urine Nitrite Positive H (Negative) Ur Leukocyte Esterase Large (3+) H (Negative) Urine RBC 3-5 H (0-2) /HPF Urine WBC >50 H (0-5) /HPF Ur Squamous Epith Cells 3-5 (0-2) /HPF Urine Bacteria 4+ (None Seen) Hyaline Casts 0-2 (0-2) /LPF 01/23/23 Range/Units 20:57 WBC (4.8-10.8) X10*3/uL RBC (4.20-5.50) X10*6/uL Hgb (12.0-16.0) g/dl Hct (37.0-47.0) % MCV (80.0-98.0) fL MCH (27.0-33.0) pg MCHC (31.0-35.0) g/dl RDW (11.0-16.0) % Plt Count (160-400) X10*3/uL MPV (9.4-12.3) fL Immature Gran % (Auto) (0.0-0.4) % Neut % (Auto) (45-73) % Lymph % (Auto) (20-40) % [place] % (Auto) (2-11) % Eos % (Auto) (0-4) % Baso % (Auto) (0-2) % Lymph # (Auto) (1.2-4.9) X10*3/uL [place] # (Auto) (0.1-1.2) X10*3/uL Eos # (Auto) (0.0-0.4) X10*3/uL Baso # (Auto) (0.0-0.2) X10*3/uL Abs Immat Gran (auto) (0.00-0.03) X10*3/uL Absolute Neuts (auto) (2.0-8.3) x10*3/uL Absolute Nucleated RBC (0.0-0.012) X10*3/uL Nucleated RBC % (auto) (0.0-0.2) /100WBC Sodium (135-145) mmol/L Potassium (3.3-5.1) mmol/L Chloride (96-108) mmol/L Carbon Dioxide (22-29) mmol/L Anion Gap (12-20) BUN (9-16) mg/dL Creatinine (0.5-1.4) mg/dL Estim Creat Clear Calc Estimated GFR Random Glucose (60-115) mg/dL Calcium (8.4-10.2) mg/dL Magnesium (1.6-2.6) mg/dL Total Bilirubin (0.0-1.0) mg/dL Direct Bilirubin (0.0-0.5) mg/dL AST (5-31) U/L ALT (0-31) U/L Alkaline Phosphatase (39-117) U/L Troponin I High Sens < 2.7 (<3.5-17.0) ng/L Total Protein (6.5-8.0) g/dL Albumin (3.5-5.0) g/dL Urine Color Urine Appearance Urine pH (5.0-9.0) Ur Specific [place] (1.005-1.025) Urine Protein (Neg-Trace) mg/dL Urine Glucose (UA) (Negative) mg/dL Urine Ketones (Negative) mg/dL Urine Blood (Negative) Urine Nitrite (Negative) Ur Leukocyte Esterase (Negative) Urine RBC (0-2) /HPF Urine WBC (0-5) /HPF Ur Squamous Epith Cells (0-2) /HPF Urine Bacteria (None Seen) Hyaline Casts (0-2) /LPF <TIMI Cruz Last Filed: 01/24/23 00:52> Independent Interpretation I performed an independent interpretation of an: Plain X-Ray ( XR/XR knee LT 3V IMPRESSION: Unremarkable left knee. ) <TIIM Cruz Last Filed: 01/24/23 00:52> Critical Care Time Critical Care Time Critical Care Time: No <TIMI Cruz Last Filed: 01/24/23 00:52> Discharge Plan Discharge Clinical Impression: Vertigo, Knee pain, UTI (urinary tract infection) <TIMI Sims Last Filed: 01/23/23 20:24> Patient Disposition: Home, Self-Care <TIMI Sims Last Filed: 01/23/23 20:24> Instructions: Crutch Instructions (ED), Urinary Tract Infection in Women (DC), Vertigo (ED), Knee Pain (ED), Dizziness (ED) <TIMI Sims Last Filed: 01/23/23 20:24> Additional Instructions: Take your medications as prescribed. If you were prescribed antibiotics today, it is important that you take your medication to their entirety, do not skip any doses, do not finish them early. Follow-up with your primary care provider this week. Return to the emergency department with new or worsening symptoms. Such as fevers, chills, chest pain, shortness of breath, nausea, vomiting, dizziness, headache, vision changes, lethargy In case of emergency call 911 Toradol has been sent to your pharmacy, you tolerated this well in the department. Please take this as prescribed do not take this with ibuprofen, or other NSAIDs, do not mix this with alcohol. Side effects of this medication including increased risk for bleeding and possible kidney injury. Take meclizine as needed for vertigo or dizziness. <TIMI Sims Last Filed: 01/23/23 20:24> Prescriptions: New meclizine 25 mg tablet 25 mg PO DAILY PRN (Reason: dizziness) Qty: 6 0RF ketorolac 10 mg tablet 10 mg PO TID PRN (Reason: pain) 5 Days Qty: 10 0RF phenazopyridine [Pyridium] 100 mg tablet 200 mg PO TID 2 Days Qty: 6 0RF nitrofurantoin monohyd/m-cryst [Macrobid] 100 mg capsule 100 mg PO BID 5 Days Qty: 10 0RF Rx Instructions: must administer with a meal/food No Action metformin 500 mg tablet 1 tab PO BID atorvastatin 10 mg tablet 10 mg PO DAILY montelukast 10 mg tablet 1 tab PO BEDTIME nicotine (polacrilex) 4 mg gum 1 ea PO Q2H PRN (Reason: Smoking Cessation) lisinopril 5 mg tablet 1 tab PO DAILY ferrous sulfate 325 mg (65 mg iron) Tablet 325 mg PO DAILY benztropine [Cogentin] 1 mg Tablet 1 mg PO BID fluoxetine 40 mg capsule 2 cap PO DAILY pantoprazole 40 mg tablet,delayed release (DR/EC) 1 tab PO DAILY@0630 mirtazapine 15 mg tablet 0.5 tab PO DAILY albuterol sulfate [Ventolin HFA] 90 mcg/actuation HFA aerosol inhaler 2 puff inhalation Q4-6H PRN (Reason: Shortness Of Breath Or Wheezing) fluphenazine HCl 5 mg tablet 1 tab PO BID chlorpromazine 50 mg tablet 1 tab PO TID PRN (Reason: Agitation) prazosin 1 mg Capsule 4 mg PO BEDTIME 30 Days Qty: 120 0RF Protocol: Hold for SBP< HOLD for SBP < : 90 trazodone 150 mg tablet 1 tab PO BEDTIME cefuroxime axetil 500 mg tablet 500 mg PO Q12H 7 Days Qty: 14 0RF <TIMI Sims - Last Filed: 01/23/23 20:24> Referrals: [facility] [Provider Group] - 2 days Maribel Marquez NP [Primary Care Provider] - 2 days <TIMI Sims - Last Filed: 01/23/23 20:24>
--- NOTE | 2023-01-23 20:20 | ECG_ITS ---
Test Reason : LIGHTHEADED Blood Pressure : / mmHG Vent. Rate : 114 BPM Atrial Rate : 114 BPM P-R Int : 158 ms QRS Dur : 082 ms QT Int : 334 ms P-R-T Axes : 048 033 043 degrees QTc Int : 460 ms Sinus tachycardia Possible Left atrial enlargement Borderline ECG When compared with ECG of 15-DEC-2022 22:20, No significant change was found Referred By: Jaimie Carmona Electronically Signed By:DONALD HOOKER MD
[2023-01-23 20:32] VITALS: BP 124/88; BP 131/66; PULSE 104; PULSE 126; RESP 18; TEMP 36.7; O2SAT 98; BMI 41.9
[2023-01-23 20:51] LABS: Appearance Urine Cloudy; Color Urine Yellow; Glucose Urine UA Negative (Negative); Leukocyte Esterase Urine Large (3+) (Negative); Nitrite Urine Positive (Negative); PH 5.5 (5.0-9.0); Specific Gravity - Urine 1.015 (1.005-1.025); UMIC TRIGGER UACC YES; Urine Blood Trace (Negative); Urine Ketones Negative (Negative); Urine Protein Negative (Neg-Trace)
[2023-01-23 20:56] LABS: Bacteria Urine 4+ (None Seen); Hyaline Casts Urine 0-2 /LPF (0-2); UACC Culture Trigger YES; WBC Urine >50 /HPF (0-5)
[2023-01-23 21:06] LABS: MANUAL DIFF FLAG NO
[2023-01-23 21:07] LABS: Basophils Percent Auto 0.3 % (0-2); Eosinophils Absolute Auto 0.3 X10*3/uL (0.0-0.4); Eosinophils Percent Auto 3.4 % (0-4); Hematocrit 34.5 % (37.0-47.0); Hemoglobin 11.1 g/dl (12.0-16.0); Imm Gran Abs Auto 0.04 X10*3/uL (0.00-0.03); Imm Gran Pct Auto 0.4 % (0.0-0.4); Lymphocytes Absolute Auto 1.7 X10*3/uL (1.2-4.9); Lymphocytes Percent Auto 19.2 % (20-40); Mean Corpuscular HGB Conc 32.2 g/dl (31.0-35.0); Mean Corpuscular Hemoglobin 27.2 pg (27.0-33.0); Mean Corpuscular Volume 84.6 fL (80.0-98.0); Mean Platelet Volume 9.5 fL (9.4-12.3); Monocytes Absolute Auto 0.8 X10*3/uL (0.1-1.2); Monocytes Percent Auto 8.7 % (2-11); Neutrophils Absolute Auto 6.1 x10*3/uL (2.0-8.3); Platelet Count 268 X10*3/uL (160-400); Red Blood Count 4.08 X10*6/uL (4.20-5.50); Red Cell Distribution Width 15.5 % (11.0-16.0)
[2023-01-23 21:30] LABS: Alanine Aminotransferase 12 U/L (0-31); Albumin Level 4.3 g/dL (3.5-5.0); Alkaline Phosphatase 107 U/L (39-117); Anion Gap 16 (12-20); Aspartate Amino Transferase 15 U/L (5-31); Bilirubin Direct < 0.2 mg/dL (0.0-0.5); Bilirubin Total 0.2 mg/dL (0.0-1.0); Blood Urea Nitrogen 19 mg/dL (9-16); Calcium 9.2 mg/dL (8.4-10.2); Carbon Dioxide 21 mmol/L (22-29); Chloride 105 mmol/L (96-108); Creatinine Clr Calc Pharmacy 111.8; Estimated Glomerular Filt Rate > 60; Glucose Random 128 mg/dL (60-115); Magnesium 1.7 mg/dL (1.6-2.6); Potassium 4.3 mmol/L (3.3-5.1); Sodium 138 mmol/L (135-145); Total Protein 6.8 g/dL (6.5-8.0)
[2023-01-23 21:44] LABS: Troponin-I High Sensitivity < 2.7 ng/L (<3.5-17.0)
[2023-01-24 00:29] VITALS: BP 106/65; PULSE 100
[2023-01-24 00:30] VITALS: BP 110/65; BP 121/70; PULSE 105; PULSE 114
[2023-01-24] MEDS: Meclizine HCl 25 MG TABLET PO (00:55)
[2023-01-24] MEDS: Ketorolac Tromethamine 15 MG/ML VIAL 30 MG IM (00:55)
--- NOTE | 2023-01-24 01:57 | PC.NURSE ---
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 Pt discharged and placed in waiting room at this time
== END 2023-01-24 03:12 | disposition home or self-care (01) ==
PROVIDERS: Physician Assistant; Emergency Provider Internal Medicine; PCP Nurse Practitioner Family
DX: S89.92XA Unspecified injury of left lower leg, initial encounter (principal); N39.0 Urinary tract infection, site not specified; R00.0 Tachycardia, unspecified; F33.1 Major depressive disorder, recurrent, moderate; R42 Dizziness and giddiness; F43.10 Post-traumatic stress disorder, unspecified; F17.210 Nicotine dependence, cigarettes, uncomplicated; W01.0XXA Fall on same level from slipping, tripping and stumbling without subsequent striking against object, initial encounter; Y93.9 Activity, unspecified; Y92.9 Unspecified place or not applicable; Y99.9 Unspecified external cause status; Z71.6 Tobacco abuse counseling; Z79.899 Other long term (current) drug therapy
CPT/HCPCS: 36415; 73562; 80048; 80076; 81001; 83735; 84484; 85025; 87086; 87088; 87186; 93005; 96372; 99284; J1885

== ENCOUNTER 2023-01-26 20:25 | Emergency (ER) | payer MEDICARE, MEDICAID, SELFPAY ==
[2023-01-26 20:29] VITALS: BP 150/81; PULSE 95; RESP 16; TEMP 36.6; O2SAT 95; BMI 43.0
--- NOTE | 2023-01-26 21:05 | ED_ITS ---
HPI - Psych General Chief Complaint: Psychiatric Symptoms <TIMI Cruz - Last Filed: 01/27/23 00:39> Stated Complaint: Crisis <TIMI Cruz Last Filed: 01/27/23 00:39> Time Seen by Provider: 01/26/23 20:37 <TIMI Cruz Last Filed: 01/27/23 00:39> Source: patient <TIMI Cruz - Last Filed: 01/27/23 00:39> Mode of arrival: ambulatory <TIMI Cruz Last Filed: 01/27/23 00:39> Limitations: no limitations <TIMI Cruz Last Filed: 01/27/23 00:39> History of Present Illness HPI Narrative: This is a 47-year-old female history of bipolar two with melacholic features, depression, PTSD, diabetes, GERD, suicide attempts presenting to the emergency department with suicidal ideation and and command hallucinations, patient tells me voices are telling her to cut herself so she can .? She reports increasing life stressors, she tells me she feels very depressed and suicidal at this time.? She reports visual and auditory hallucinations, seeing shadows were telling her to harm herself.? Denies tactile hallucinations.? Denies drugs, alcohol and tobacco.? No medical complaints. <TIMI Cruz Last Filed: 01/27/23 00:39> Related Data Home Medications: Home Medications Medication Instructions Recorded Confirmed atorvastatin 10 mg tablet 10 mg PO DAILY 05/29/21 01/26/23 metformin 500 mg tablet 1 tab PO BID 05/29/21 01/26/23 montelukast 10 mg tablet 1 tab PO BEDTIME 05/29/21 01/26/23 lisinopril 5 mg tablet 1 tab PO DAILY 07/30/22 01/26/23 nicotine (polacrilex) 4 mg gum 1 ea PO Q2H PRN Smoking Cessation 07/30/22 01/26/23 trazodone 150 mg tablet 1 tab PO BEDTIME 09/23/22 01/26/23 benztropine 1 mg tablet 1 mg PO BID 12/19/22 01/26/23 ferrous sulfate 325 mg (65 mg 325 mg PO DAILY 12/19/22 01/26/23 iron) tablet albuterol sulfate 90 mcg/actuation 2 puff inhalation Q4-6H PRN 12/24/22 01/26/23 aerosol inhaler (Ventolin HFA) Shortness Of Breath Or Wheezing chlorpromazine 50 mg tablet 1 tab PO TID PRN Agitation 12/24/22 01/26/23 fluoxetine 40 mg capsule 2 cap PO DAILY 12/24/22 01/26/23 fluphenazine HCl 5 mg tablet 1 tab PO BID 12/24/22 01/26/23 mirtazapine 15 mg tablet 0.5 tab PO DAILY 12/24/22 01/26/23 pantoprazole 40 mg tablet,delayed 1 tab PO DAILY@0630 12/24/22 01/26/23 release Previous Rx's Medication Instructions Recorded prazosin 1 mg capsule 4 mg PO BEDTIME 30 days #120 caps 10/18/21 ketorolac 10 mg tablet 10 mg PO TID PRN pain 5 days #10 01/24/23 tabs meclizine 25 mg tablet 25 mg PO DAILY PRN dizziness #6 01/24/23 tabs phenazopyridine 100 mg tablet 200 mg PO TID 2 days #6 tabs 01/24/23 (Pyridium) nitrofurantoin 100 mg PO BID 5 days #10 caps 01/27/23 monohydrate/macrocrystals 100 mg capsule (Macrobid) <TIMI Cruz - Last Filed: 01/27/23 00:39> Allergies/Adverse Reactions: Allergies Allergy/AdvReac Type Severity Reaction Status Date / Time Fish Containing Products Allergy Severe ANAPHYLAXIS Verified 12/24/22 11:47 codeine [Codeine] Allergy Intermediate RASH Verified 12/24/22 11:47 Penicillins Allergy Intermediate RASH Verified 12/24/22 11:47 prednisone [Prednisone] Allergy Intermediate RASH Verified 12/24/22 11:47 Sulfa (Sulfonamide Allergy Intermediate RASH Verified 12/24/22 11:47 Antibiotics) [Sulfa (Sulfonamides)] azithromycin [AZITHROMYCIN] AdvReac Severe RASH Verified 12/24/22 11:47 ziprasidone [From Geodon] AdvReac Intermediate dysuria, Verified 12/24/22 11:47 rash <TIMI Cruz - Last Filed: 01/27/23 00:39> Review of Systems Review of Systems: Constitutional : No Weight loss, No Fever, No Chills, No Fatigue, No Malaise ENT/Mouth : No sore throat, No Rhinorrhea Eyes: No Eye Pain, No Swelling, No Redness Cardiovascular : No Chest Pain, No SOB, No Dyspnea on Exertion, No Orthopnea, No Edema, No Palpitations Respiratory : No Cough, No Sputum, No Wheezing Gastrointestinal : No Nausea, No Vomiting, No Diarrhea, No Constipation, No abdominal Pain, No Hematochezia, No Melena Genitourinary : No Dysuria, No Urinary Frequency, No Hematuria, Musculoskeletal : No joint pain, No Myalgias, No Joint Swelling Skin : No Skin Lesions, No rash Neuro : No Weakness, No Numbness, No Dizziness, No Headache Psych : + Anxiety/Panic, + Depression, + SI <TIMI Cruz Last Filed: 01/27/23 00:39> Yes all other systems are reviewed and are negative <TIMI Cruz Last Filed: 01/27/23 00:39> [facility] Past Medical History Attestation statement: The following information was validated with the patient. <TIMI Cruz Last Filed: 01/27/23 00:39> Source: old records reviewed and nursing notes reviewed <TIMI Cruz Last Filed: 01/27/23 00:39> Medical History: Medical History Acetaminophen overdose Borderline personality disorder Bronchitis Depression Diabetes type 2, controlled Full body hives GERD (gastroesophageal reflux disease) History of attempted suicide History of non-suicidal self-harm Hyperlipidemia Hypomagnesemia Major depression MDD (major depressive disorder), recurrent episode, severe Mood disorder Overdose PTSD (post-traumatic stress disorder) Suicide attempt Suicide attempt by acetaminophen overdose <TIMI Cruz Last Filed: 01/27/23 00:39> Social History Social History: Social History Household Members: Other Household Members Other:: [facility] Housing: Other Housing Other:: [facility] Do you presently have visiting nurse or other home services: No Unable to assess alcohol history related to: Unknown Alcohol intake: unknown Patient Tobacco Use Status: Current everyday Tobacco user Tobacco use type: Cigarette Cigarette Packs Per Day: 1 Cigarettes Per Day: 16 Years Smoked: 20 e-Cigarette/Vaping Use: Never Used Substance Use Type: Marijuana Advance Directives: No Advance Directives Information Provided: No Healthcare Proxy: No Guardian: No service: No Current occupational status: unemployed and disabled Sexual orientation: Don't Know <TIMI Cruz - Last Filed: 01/27/23 00:39> Physical Exam Vital Signs: Vital Signs: Last Vital Signs Temp 98.2 F 01/27/23 06:23 Pulse 73 01/27/23 06:23 Resp 18 01/27/23 06:23 BP 134/56 L 01/27/23 06:23 Pulse Ox 97 01/27/23 06:23 O2 Del Method Room Air 01/27/23 06:23 BMI result Body Mass Index 43.0 vss <TIMI Cruz - Last Filed: 01/27/23 00:39> Vital Signs: Last Vital Signs Temp 98.2 F 01/27/23 06:23 Pulse 73 01/27/23 06:23 Resp 18 01/27/23 06:23 BP 134/56 L 01/27/23 06:23 Pulse Ox 97 01/27/23 06:23 O2 Del Method Room Air 01/27/23 06:23 BMI result Body Mass Index 43.0 <Kingsley Larson MD - Last Filed: 01/27/23 08:07> Appearance: Alert.? Oriented X3.? No acute distress.? Head:? Normocephalic, atraumatic, no step-offs or deformities Eyes: Pupils equal, round and reactive to light.? Neck: Normal inspection.? Neck supple.? CVS: Normal heart rate and rhythm.? Pulses normal.? Respiratory: No respiratory distress.? Breath sounds normal.? Abdomen: Soft and nontender.? Skin: Skin warm and dry.? Normal skin color.? Normal skin turgor.?Old self- inflicted superficial wounds to? bilateral forearms, anterior thighs bilaterally, stomach Extremities: No lower extremity edema.? No calf ttp.? 5/5 strength to bilateral upper and lower extremities Neuro: Oriented X 3.? No motor deficit.? No sensory deficit. CN 2-12 intact <TIMI Cruz - Last Filed: 01/27/23 00:39> Course Reevaluation(s) Reevaluation #1: CBC appears to be around baseline. Chemistry unremarkable. UA positive for infection, will discharge home on macrobid again as she did not take her previous rx. She only reports urinary frequency. Salicylates, acetaminophen and ethanol negative. Urine toxicology negative. At this time patient will be placed into physician observation to allow more time to be evaluated by the behavioral health team. At time observation was started patient common cooperative no acute distress will continue to monitor <TIMI Cruz - Last Filed: 01/27/23 00:39> Time: 00:37 <TIMI Cruz - Last Filed: 01/27/23 00:39> Reevaluation #2: January 27 8:07 AM [facility] cleared for d/c no new complaints this am ,stable VS <Kingsley Larson MD - Last Filed: 01/27/23 08:07> Time: 08:07 <Kingsley Larson MD - Last Filed: 01/27/23 08:07> Medical Decision Making Medical Decision Making MDM Narrative: 47 year-old female presenting with anxiety, depression, visual and auditory hallucinations , self-inflicted wounds . Physical examination w/ ? Superficial wounds to bilateral forearms,? anterior thigh use, abdomen Likley MDD vs borderline personality do vs anxiety.? Unlikely metabolic causes. Plan- medical clearance and evaluation by N <TIMI Cruz - Last Filed: 01/27/23 00:39> Differential Diagnosis Differential Diagnoses: The differential diagnosis associated with the presentation includes <TIMI Cruz - Last Filed: 01/27/23 00:39> Em MDD vs borderline personality do vs anxiety.? Unlikely metabolic causes. <TIMI Cruz - Last Filed: 01/27/23 00:39> Admission/Observation Consideration of admission/observation: Escalation of care including admission/observation considered <TIMI Cruz Last Filed: 01/27/23 00:39> Unlikely <TIMI Cruz - Last Filed: 01/27/23 00:39> Lab Data MDM Lab Attestation statement: I reviewed the patient's lab results. <TIMI Cruz - Last Filed: 01/27/23 00:39> Result Diagrams: 01/26/23 21:58 01/26/23 21:58 <TIMI Cruz - Last Filed: 01/27/23 00:39> Labs: Lab Results 01/26/23 01/26/23 01/26/23 Range/Units 20:48 21:58 21:58 WBC 6.7 (4.8-10.8) X10*3/uL RBC 3.89 L (4.20-5.50) X10*6/uL Hgb 10.9 L (12.0-16.0) g/dl Hct 35.5 L (37.0-47.0) % MCV 91.3 D (80.0-98.0) fL MCH 28.0 (27.0-33.0) pg MCHC 30.7 L (31.0-35.0) g/dl RDW 16.1 H (11.0-16.0) % Plt Count 287 (160-400) X10*3/uL MPV 10.1 (9.4-12.3) fL Immature Gran % (Auto) 0.4 (0.0-0.4) % Neut % (Auto) 60.8 (45-73) % Lymph % (Auto) 23.3 (20-40) % [place] % (Auto) 10.2 (2-11) % Eos % (Auto) 4.9 H (0-4) % Baso % (Auto) 0.4 (0-2) % Lymph # (Auto) 1.6 (1.2-4.9) X10*3/uL [place] # (Auto) 0.7 (0.1-1.2) X10*3/uL Eos # (Auto) 0.3 (0.0-0.4) X10*3/uL Baso # (Auto) 0.0 (0.0-0.2) X10*3/uL Abs Immat Gran (auto) 0.03 (0.00-0.03) X10*3/uL Absolute Neuts (auto) 4.1 (2.0-8.3) x10*3/uL Absolute Nucleated RBC 0.000 (0.0-0.012) X10*3/uL Nucleated RBC % (auto) 0.0 (0.0-0.2) /100WBC Sodium 137 (135-145) mmol/L Potassium 4.0 (3.3-5.1) mmol/L Chloride 107 (96-108) mmol/L Carbon Dioxide 20 L (22-29) mmol/L Anion Gap 14 (12-20) BUN 19 H (9-16) mg/dL Creatinine 0.84 (0.5-1.4) mg/dL Estim Creat Clear Calc 97.0 Estimated GFR > 60 Random Glucose 104 (60-115) mg/dL Calcium 8.9 (8.4-10.2) mg/dL Total Bilirubin 0.2 (0.0-1.0) mg/dL AST 20 (5-31) U/L ALT 15 (0-31) U/L Alkaline Phosphatase 117 (39-117) U/L Total Protein 6.6 (6.5-8.0) g/dL Albumin 4.2 (3.5-5.0) g/dL Urine Color Urine Appearance Urine pH (5.0-9.0) Ur Specific [place] (1.005-1.025) Urine Protein (Neg-Trace) mg/dL Urine Glucose (UA) (Negative) mg/dL Urine Ketones (Negative) mg/dL Urine Blood (Negative) Urine Nitrite (Negative) Ur Leukocyte Esterase (Negative) Urine RBC (0-2) /HPF Urine WBC (0-5) /HPF Ur Squamous Epith Cells (0-2) /HPF Other Crystals Urine Bacteria (None Seen) Hyaline Casts (0-2) /LPF Urine Test (NEGATIVE) Salicylates < 5.0 L (15-30) mg/dL Urine Opiates Screen (Not Detect) Urine Fentanyl Screen (Not Detect) Acetaminophen < 17 (<30) mcg/mL Ur Barbiturates Screen (Not Detect) Ur Phencyclidine Scrn (Not Detect) Ur Amphetamines Screen (Not Detect) U Benzodiazepines Scrn (Not Detect) Urine Cocaine Screen (Not Detect) U Marijuana (THC) Screen (Not Detect) Ethyl Alcohol < 10 mg/dL COVID-19 (NICK) Negative (Negative) COVID-19 Clin Com See Note 01/26/23 01/26/23 01/26/23 Range/Units 22:11 22:11 22:11 WBC (4.8-10.8) X10*3/uL RBC (4.20-5.50) X10*6/uL Hgb (12.0-16.0) g/dl Hct (37.0-47.0) % MCV (80.0-98.0) fL MCH (27.0-33.0) pg MCHC (31.0-35.0) g/dl RDW (11.0-16.0) % Plt Count (160-400) X10*3/uL MPV (9.4-12.3) fL Immature Gran % (Auto) (0.0-0.4) % Neut % (Auto) (45-73) % Lymph % (Auto) (20-40) % [place] % (Auto) (2-11) % Eos % (Auto) (0-4) % Baso % (Auto) (0-2) % Lymph # (Auto) (1.2-4.9) X10*3/uL [place] # (Auto) (0.1-1.2) X10*3/uL Eos # (Auto) (0.0-0.4) X10*3/uL Baso # (Auto) (0.0-0.2) X10*3/uL Abs Immat Gran (auto) (0.00-0.03) X10*3/uL Absolute Neuts (auto) (2.0-8.3) x10*3/uL Absolute Nucleated RBC (0.0-0.012) X10*3/uL Nucleated RBC % (auto) (0.0-0.2) /100WBC Sodium (135-145) mmol/L Potassium (3.3-5.1) mmol/L Chloride (96-108) mmol/L Carbon Dioxide (22-29) mmol/L Anion Gap (12-20) BUN (9-16) mg/dL Creatinine (0.5-1.4) mg/dL Estim Creat Clear Calc Estimated GFR Random Glucose (60-115) mg/dL Calcium (8.4-10.2) mg/dL Total Bilirubin (0.0-1.0) mg/dL AST (5-31) U/L ALT (0-31) U/L Alkaline Phosphatase (39-117) U/L Total Protein (6.5-8.0) g/dL Albumin (3.5-5.0) g/dL Urine Color Dark Yellow Urine Appearance Clear Urine pH 5.5 (5.0-9.0) Ur Specific [place] 1.015 (1.005-1.025) Urine Protein Negative (Neg-Trace) mg/dL Urine Glucose (UA) Negative (Negative) mg/dL Urine Ketones Negative (Negative) mg/dL Urine Blood Negative (Negative) Urine Nitrite Positive H (Negative) Ur Leukocyte Esterase Moderate (2+) H (Negative) Urine RBC 6-10 H (0-2) /HPF Urine WBC 11-20 H (0-5) /HPF Ur Squamous Epith Cells 11-20 (0-2) /HPF Other Crystals Present Urine Bacteria Trace (None Seen) Hyaline Casts 0-2 (0-2) /LPF Urine Test NEGATIVE (NEGATIVE) Salicylates (15-30) mg/dL Urine Opiates Screen Not Detected (Not Detect) Urine Fentanyl Screen Not Detected (Not Detect) Acetaminophen (<30) mcg/mL Ur Barbiturates Screen Not Detected (Not Detect) Ur Phencyclidine Scrn Not Detected (Not Detect) Ur Amphetamines Screen Not Detected (Not Detect) U Benzodiazepines Scrn Not Detected (Not Detect) Urine Cocaine Screen Not Detected (Not Detect) U Marijuana (THC) Screen Not Detected (Not Detect) Ethyl Alcohol mg/dL COVID-19 (NICK) (Negative) COVID-19 Clin Com <TIMI Cruz - Last Filed: 01/27/23 00:39> Lab Results 01/26/23 01/26/23 01/26/23 Range/Units 20:48 21:58 21:58 WBC 6.7 (4.8-10.8) X10*3/uL RBC 3.89 L (4.20-5.50) X10*6/uL Hgb 10.9 L (12.0-16.0) g/dl Hct 35.5 L (37.0-47.0) % MCV 91.3 D (80.0-98.0) fL MCH 28.0 (27.0-33.0) pg MCHC 30.7 L (31.0-35.0) g/dl RDW 16.1 H (11.0-16.0) % Plt Count 287 (160-400) X10*3/uL MPV 10.1 (9.4-12.3) fL Immature Gran % (Auto) 0.4 (0.0-0.4) % Neut % (Auto) 60.8 (45-73) % Lymph % (Auto) 23.3 (20-40) % [place] % (Auto) 10.2 (2-11) % Eos % (Auto) 4.9 H (0-4) % Baso % (Auto) 0.4 (0-2) % Lymph # (Auto) 1.6 (1.2-4.9) X10*3/uL [place] # (Auto) 0.7 (0.1-1.2) X10*3/uL Eos # (Auto) 0.3 (0.0-0.4) X10*3/uL Baso # (Auto) 0.0 (0.0-0.2) X10*3/uL Abs Immat Gran (auto) 0.03 (0.00-0.03) X10*3/uL Absolute Neuts (auto) 4.1 (2.0-8.3) x10*3/uL Absolute Nucleated RBC 0.000 (0.0-0.012) X10*3/uL Nucleated RBC % (auto) 0.0 (0.0-0.2) /100WBC Sodium 137 (135-145) mmol/L Potassium 4.0 (3.3-5.1) mmol/L Chloride 107 (96-108) mmol/L Carbon Dioxide 20 L (22-29) mmol/L Anion Gap 14 (12-20) BUN 19 H (9-16) mg/dL Creatinine 0.84 (0.5-1.4) mg/dL Estim Creat Clear Calc 97.0 Estimated GFR > 60 Random Glucose 104 (60-115) mg/dL Calcium 8.9 (8.4-10.2) mg/dL Total Bilirubin 0.2 (0.0-1.0) mg/dL AST 20 (5-31) U/L ALT 15 (0-31) U/L Alkaline Phosphatase 117 (39-117) U/L Total Protein 6.6 (6.5-8.0) g/dL Albumin 4.2 (3.5-5.0) g/dL Urine Color Urine Appearance Urine pH (5.0-9.0) Ur Specific [place] (1.005-1.025) Urine Protein (Neg-Trace) mg/dL Urine Glucose (UA) (Negative) mg/dL Urine Ketones (Negative) mg/dL Urine Blood (Negative) Urine Nitrite (Negative) Ur Leukocyte Esterase (Negative) Urine RBC (0-2) /HPF Urine WBC (0-5) /HPF Ur Squamous Epith Cells (0-2) /HPF Other Crystals Urine Bacteria (None Seen) Hyaline Casts (0-2) /LPF Urine Test (NEGATIVE) Salicylates < 5.0 L (15-30) mg/dL Urine Opiates Screen (Not Detect) Urine Fentanyl Screen (Not Detect) Acetaminophen < 17 (<30) mcg/mL Ur Barbiturates Screen (Not Detect) Ur Phencyclidine Scrn (Not Detect) Ur Amphetamines Screen (Not Detect) U Benzodiazepines Scrn (Not Detect) Urine Cocaine Screen (Not Detect) U Marijuana (THC) Screen (Not Detect) Ethyl Alcohol < 10 mg/dL COVID-19 (NICK) Negative (Negative) COVID-19 Clin Com See Note 01/26/23 01/26/23 01/26/23 Range/Units 22:11 22:11 22:11 WBC (4.8-10.8) X10*3/uL RBC (4.20-5.50) X10*6/uL Hgb (12.0-16.0) g/dl Hct (37.0-47.0) % MCV (80.0-98.0) fL MCH (27.0-33.0) pg MCHC (31.0-35.0) g/dl RDW (11.0-16.0) % Plt Count (160-400) X10*3/uL MPV (9.4-12.3) fL Immature Gran % (Auto) (0.0-0.4) % Neut % (Auto) (45-73) % Lymph % (Auto) (20-40) % [place] % (Auto) (2-11) % Eos % (Auto) (0-4) % Baso % (Auto) (0-2) % Lymph # (Auto) (1.2-4.9) X10*3/uL [place] # (Auto) (0.1-1.2) X10*3/uL Eos # (Auto) (0.0-0.4) X10*3/uL Baso # (Auto) (0.0-0.2) X10*3/uL Abs Immat Gran (auto) (0.00-0.03) X10*3/uL Absolute Neuts (auto) (2.0-8.3) x10*3/uL Absolute Nucleated RBC (0.0-0.012) X10*3/uL Nucleated RBC % (auto) (0.0-0.2) /100WBC Sodium (135-145) mmol/L Potassium (3.3-5.1) mmol/L Chloride (96-108) mmol/L Carbon Dioxide (22-29) mmol/L Anion Gap (12-20) BUN (9-16) mg/dL Creatinine (0.5-1.4) mg/dL Estim Creat Clear Calc Estimated GFR Random Glucose (60-115) mg/dL Calcium (8.4-10.2) mg/dL Total Bilirubin (0.0-1.0) mg/dL AST (5-31) U/L ALT (0-31) U/L Alkaline Phosphatase (39-117) U/L Total Protein (6.5-8.0) g/dL Albumin (3.5-5.0) g/dL Urine Color Dark Yellow Urine Appearance Clear Urine pH 5.5 (5.0-9.0) Ur Specific [place] 1.015 (1.005-1.025) Urine Protein Negative (Neg-Trace) mg/dL Urine Glucose (UA) Negative (Negative) mg/dL Urine Ketones Negative (Negative) mg/dL Urine Blood Negative (Negative) Urine Nitrite Positive H (Negative) Ur Leukocyte Esterase Moderate (2+) H (Negative) Urine RBC 6-10 H (0-2) /HPF Urine WBC 11-20 H (0-5) /HPF Ur Squamous Epith Cells 11-20 (0-2) /HPF Other Crystals Present Urine Bacteria Trace (None Seen) Hyaline Casts 0-2 (0-2) /LPF Urine Test NEGATIVE (NEGATIVE) Salicylates (15-30) mg/dL Urine Opiates Screen Not Detected (Not Detect) Urine Fentanyl Screen Not Detected (Not Detect) Acetaminophen (<30) mcg/mL Ur Barbiturates Screen Not Detected (Not Detect) Ur Phencyclidine Scrn Not Detected (Not Detect) Ur Amphetamines Screen Not Detected (Not Detect) U Benzodiazepines Scrn Not Detected (Not Detect) Urine Cocaine Screen Not Detected (Not Detect) U Marijuana (THC) Screen Not Detected (Not Detect) Ethyl Alcohol mg/dL COVID-19 (NICK) (Negative) COVID-19 Clin Com <Kingsley Larson MD - Last Filed: 01/27/23 08:07> Core Measures AMI core measures followed: Yes <TIMI Cruz - Last Filed: 01/27/23 00:39> Measure exclusions: not indicated <TIMI Cruz - Last Filed: 01/27/23 00:39> Critical Care Time Critical Care Time Critical Care Time: No <TIMI Cruz - Last Filed: 01/27/23 00:39> Discharge Plan Discharge Clinical Impression: UTI (urinary tract infection), Acute anxiety <TIMI Cruz - Last Filed: 01/27/23 00:39> Patient Disposition: Home, Self-Care <TIMI Cruz - Last Filed: 01/27/23 00:39> Instructions: Urinary Tract Infection in Women (DC), Anxiety (ED) <TIMI Cruz - Last Filed: 01/27/23 00:39> Additional Instructions: Take your medications as prescribed. If you were prescribed antibiotics today, it is important that you take your medication to their entirety, do not skip any doses, do not finish them early. Follow-up with your primary care provider this week. Return to the emergency department with new or worsening symptoms. Such as fevers, chills, chest pain, shortness of breath, nausea, vomiting, dizziness, headache, vision changes, lethargy, suicidal or homicidal ideation In case of emergency call 911 <TIMI Cruz - Last Filed: 01/27/23 00:39> Prescriptions: New nitrofurantoin monohyd/m-cryst [Macrobid] 100 mg capsule 100 mg PO BID 5 Days Qty: 10 0RF Rx Instructions: must administer with a meal/food No Action metformin 500 mg tablet 1 tab PO BID atorvastatin 10 mg tablet 10 mg PO DAILY montelukast 10 mg tablet 1 tab PO BEDTIME nicotine (polacrilex) 4 mg gum 1 ea PO Q2H PRN (Reason: Smoking Cessation) lisinopril 5 mg tablet 1 tab PO DAILY ferrous sulfate 325 mg (65 mg iron) Tablet 325 mg PO DAILY benztropine [Cogentin] 1 mg Tablet 1 mg PO BID fluoxetine 40 mg capsule 2 cap PO DAILY pantoprazole 40 mg tablet,delayed release (DR/EC) 1 tab PO DAILY@0630 mirtazapine 15 mg tablet 0.5 tab PO DAILY albuterol sulfate [Ventolin HFA] 90 mcg/actuation HFA aerosol inhaler 2 puff inhalation Q4-6H PRN (Reason: Shortness Of Breath Or Wheezing) fluphenazine HCl 5 mg tablet 1 tab PO BID chlorpromazine 50 mg tablet 1 tab PO TID PRN (Reason: Agitation) prazosin 1 mg Capsule 4 mg PO BEDTIME 30 Days Qty: 120 0RF Protocol: Hold for SBP< HOLD for SBP < : 90 trazodone 150 mg tablet 1 tab PO BEDTIME meclizine 25 mg tablet 25 mg PO DAILY PRN (Reason: dizziness) Qty: 6 0RF ketorolac 10 mg tablet 10 mg PO TID PRN (Reason: pain) 5 Days Qty: 10 0RF phenazopyridine [Pyridium] 100 mg tablet 200 mg PO TID 2 Days Qty: 6 0RF <TIMI Cruz - Last Filed: 01/27/23 00:39> Referrals: Maribel Marquez NP [Primary Care Provider] - 2 days <TIMI Cruz - Last Filed: 01/27/23 00:39> Interventions: [place]-Suicide Risk Severity Scale Last Done: 01/26/23 23:25 <TIMI Cruz - Last Filed: 01/27/23 00:39>
[2023-01-26 21:20] LABS: COVID-19 Test Negative (Negative); IDNOW Serial# 08D9AD1C
[2023-01-26 22:07] LABS: MANUAL DIFF FLAG NO
[2023-01-26 22:13] LABS: Basophils Percent Auto 0.4 % (0-2); Eosinophils Absolute Auto 0.3 X10*3/uL (0.0-0.4); Eosinophils Percent Auto 4.9 % (0-4); Hematocrit 35.5 % (37.0-47.0); Hemoglobin 10.9 g/dl (12.0-16.0); Imm Gran Abs Auto 0.03 X10*3/uL (0.00-0.03); Imm Gran Pct Auto 0.4 % (0.0-0.4); Lymphocytes Absolute Auto 1.6 X10*3/uL (1.2-4.9); Lymphocytes Percent Auto 23.3 % (20-40); Mean Corpuscular HGB Conc 30.7 g/dl (31.0-35.0); Mean Corpuscular Volume 91.3 fL (80.0-98.0); Mean Platelet Volume 10.1 fL (9.4-12.3); Monocytes Absolute Auto 0.7 X10*3/uL (0.1-1.2); Monocytes Percent Auto 10.2 % (2-11); Neutrophils Absolute Auto 4.1 x10*3/uL (2.0-8.3); Neutrophils Percent Auto 60.8 % (45-73); Platelet Count 287 X10*3/uL (160-400); Red Blood Count 3.89 X10*6/uL (4.20-5.50); Red Cell Distribution Width 16.1 % (11.0-16.0); White Blood Count 6.7 X10*3/uL (4.8-10.8)
[2023-01-26 22:25] LABS: Appearance Urine Clear; Color Urine Dark Yellow; Glucose Urine UA Negative (Negative); Leukocyte Esterase Urine Moderate (2+) (Negative); Nitrite Urine Positive (Negative); PH 5.5 (5.0-9.0); Specific Gravity - Urine 1.015 (1.005-1.025); UMIC TRIGGER UA YES; UPreg QC Valid YES; Urine Blood Negative (Negative); Urine Ketones Negative (Negative); Urine Pregnancy NEGATIVE (NEGATIVE); Urine Protein Negative (Neg-Trace)
[2023-01-26 22:32] LABS: Amphetamine Screen Urine Not Detected (Not Detect); Barbiturates, Urine Not Detected (Not Detect); Benzodiazepines Screen Urine Not Detected (Not Detect); Cannabinoid Screen Urine Not Detected (Not Detect); Cocaine Screen Urine Not Detected (Not Detect); Fentanyl, urine Not Detected (Not Detect); Opiate Screen Urine Not Detected (Not Detect); Phencyclidine Screen Urine Not Detected (Not Detect)
[2023-01-26 22:42] LABS: Acetaminophen LAB < 17 mcg/mL (<30); Alanine Aminotransferase 15 U/L (0-31); Albumin Level 4.2 g/dL (3.5-5.0); Alkaline Phosphatase 117 U/L (39-117); Anion Gap 14 (12-20); Aspartate Amino Transferase 20 U/L (5-31); Bilirubin Total 0.2 mg/dL (0.0-1.0); Blood Urea Nitrogen 19 mg/dL (9-16); Calcium 8.9 mg/dL (8.4-10.2); Carbon Dioxide 20 mmol/L (22-29); Chloride 107 mmol/L (96-108); Estimated Glomerular Filt Rate > 60; Ethanol < 10 mg/dL; Glucose Random 104 mg/dL (60-115); Salicylate < 5.0 mg/dL (15-30); Sodium 137 mmol/L (135-145); Total Protein 6.6 g/dL (6.5-8.0)
[2023-01-26 22:47] LABS: Bacteria Urine Trace (None Seen); Hyaline Casts Urine 0-2 /LPF (0-2)
[2023-01-26 22:57] LABS: Other Crystals Urine Present
--- NOTE | 2023-01-27 05:35 | PC.NURSE ---
Patient slept intermittently, no distress observed/reported, behavior non concerning, med rec completed/pending provider's approval, care team assessed the patient disposition is SAMIRA follow up, patient will be reevaluated in the morning, labs completed/resulted, VSS, will continue to monitor.
[2023-01-27 06:23] VITALS: BP 134/56; PULSE 73; RESP 18; TEMP 36.8; O2SAT 97
--- NOTE | 2023-01-27 08:21 | PC.NURSE ---
Awake, alert, ambulatory, oriented x3 preparing for discharge to home, transport by [employer]. Denies SI, HI AVH hallucinations or thoughts of self or other harm. Plans to do errands, future oriented at this time and sleep I am tired
--- NOTE | 2023-01-31 10:35 | MHC.CARE ---
T/w reached out to patient 01/30/23 AM, engaged in brief discussion about how she is doing. She reports adequate support and ability to reach out to providers for more support if needed. No SI/ HI at time of call.
== END 2023-01-27 08:38 | disposition home or self-care (01) ==
PROVIDERS: Physician Assistant; Emergency Provider Emergency Medicine; PCP Nurse Practitioner Family
DX: N39.0 Urinary tract infection, site not specified (principal); R35.0 Frequency of micturition; F41.9 Anxiety disorder, unspecified; Z20.822 Contact with and (suspected) exposure to COVID-19; R45.851 Suicidal ideations; F23 Brief psychotic disorder; F31.81 Bipolar II disorder; R44.0 Auditory hallucinations; R44.1 Visual hallucinations; F60.3 Borderline personality disorder; E11.9 Type 2 diabetes mellitus without complications; E78.5 Hyperlipidemia, unspecified; D64.9 Anemia, unspecified; F17.210 Nicotine dependence, cigarettes, uncomplicated; F12.90 Cannabis use, unspecified, uncomplicated; E66.9 Obesity, unspecified; Z68.43 Body mass index [BMI] 50.0-59.9, adult; Z91.51 Personal history of suicidal behavior; Z91.52 Personal history of nonsuicidal self-harm; F43.10 Post-traumatic stress disorder, unspecified; Z79.84 Long term (current) use of oral hypoglycemic drugs; Z79.899 Other long term (current) drug therapy; Z79.02 Long term (current) use of antithrombotics/antiplatelets
CPT/HCPCS: 36415; 80053; 80143; 80179; 80307; 81001; 81025; 82077; 85025; 87635; 99284; S9485

== ENCOUNTER 2023-01-28 18:40 | Emergency (ER) | payer MEDICARE, MEDICAID, SELFPAY ==
[2023-01-28 18:49] VITALS: BP 147/89; PULSE 90; RESP 15; TEMP 36.4; O2SAT 98; BMI 39.4
--- NOTE | 2023-01-28 19:09 | ED.GENADULT ---
HPI - General Adult General Chief complaint: Psychiatric Symptoms Stated complaint: crisis Time Seen by Provider: 01/28/23 18:48 Source: patient, RN notes reviewed and old records reviewed Mode of arrival: EMS Limitations: no limitations History of Present Illness HPI narrative: This is a 47-year-old female with past medical history significant for bipolar disorder with PTSD, depression, diabetes, GERD presenting for evaluation of auditory hallucinations Patient states that she is hearing voices that are telling her to kill herself. She has previous attempts to cut herself mostly by cutting She has not tried to harm herself recently Patient was seen here 2 days ago for similar presentation and was ultimately discharged. She denies any recent change to her medications Denies any somatic complaints. Related Data Home Medications Medication Instructions Recorded Confirmed atorvastatin 10 mg tablet 10 mg PO DAILY 05/29/21 01/28/23 metformin 500 mg tablet 1 tab PO BID 05/29/21 01/28/23 montelukast 10 mg tablet 1 tab PO BEDTIME 05/29/21 01/28/23 lisinopril 5 mg tablet 1 tab PO DAILY 07/30/22 01/28/23 nicotine (polacrilex) 4 mg gum 1 ea PO Q2H PRN Smoking Cessation 07/30/22 01/28/23 trazodone 150 mg tablet 1 tab PO BEDTIME 09/23/22 01/28/23 benztropine 1 mg tablet 1 mg PO BID 12/19/22 01/28/23 ferrous sulfate 325 mg (65 mg 325 mg PO DAILY 12/19/22 01/28/23 iron) tablet albuterol sulfate 90 mcg/actuation 2 puff inhalation Q4-6H PRN 12/24/22 01/28/23 aerosol inhaler (Ventolin HFA) Shortness Of Breath Or Wheezing chlorpromazine 50 mg tablet 1 tab PO TID PRN Agitation 12/24/22 01/28/23 fluoxetine 40 mg capsule 2 cap PO DAILY 12/24/22 01/28/23 fluphenazine HCl 5 mg tablet 1 tab PO BID 12/24/22 01/28/23 mirtazapine 15 mg tablet 0.5 tab PO DAILY 12/24/22 01/28/23 pantoprazole 40 mg tablet,delayed 1 tab PO DAILY@0630 12/24/22 01/28/23 release Previous Rx's Medication Instructions Recorded prazosin 1 mg capsule 4 mg PO BEDTIME 30 days #120 caps 10/18/21 ketorolac 10 mg tablet 10 mg PO TID PRN pain 5 days #10 01/24/23 tabs meclizine 25 mg tablet 25 mg PO DAILY PRN dizziness #6 01/24/23 tabs phenazopyridine 100 mg tablet 200 mg PO TID 2 days #6 tabs 01/24/23 (Pyridium) nitrofurantoin 100 mg PO BID 5 days #10 caps 01/27/23 monohydrate/macrocrystals 100 mg capsule (Macrobid) Allergies Allergy/AdvReac Type Severity Reaction Status Date / Time Fish Containing Products Allergy Severe ANAPHYLAXIS Verified 12/24/22 11:47 codeine [Codeine] Allergy Intermediate RASH Verified 12/24/22 11:47 Penicillins Allergy Intermediate RASH Verified 12/24/22 11:47 prednisone [Prednisone] Allergy Intermediate RASH Verified 12/24/22 11:47 Sulfa (Sulfonamide Allergy Intermediate RASH Verified 12/24/22 11:47 Antibiotics) [Sulfa (Sulfonamides)] azithromycin [AZITHROMYCIN] AdvReac Severe RASH Verified 12/24/22 11:47 ziprasidone [From Geodon] AdvReac Intermediate dysuria, Verified 12/24/22 11:47 rash Review of Systems Constitutional: Constitutional: Reports as per HPI, Denies chills, Denies fatigue, Denies fever(s) and Denies headache(s) ENT: Denies headache(s) Cardiovascular: Cardiovascular: Denies chest pain and Denies dyspnea Respiratory: Respiratory: Denies cough and Denies dyspnea Gastrointestinal: Gastrointestinal: Denies abdominal pain, Denies constipation and Denies vomiting Genitourinary: Genitourinary: Denies dysuria Neurologic: Denies headache(s) and Denies focal weakness Psychiatric: Psychiatric: Reports auditory hallucinations and Reports suicidal ideation Endocrine: Endocrine: Denies fatigue PMFSH Past Medical History Medical History Acetaminophen overdose Borderline personality disorder Bronchitis Depression Diabetes type 2, controlled Full body hives GERD (gastroesophageal reflux disease) History of attempted suicide History of non-suicidal self-harm Hyperlipidemia Hypomagnesemia Major depression MDD (major depressive disorder), recurrent episode, severe Mood disorder Overdose PTSD (post-traumatic stress disorder) Suicide attempt Suicide attempt by acetaminophen overdose Social History Social History Household Members: Other Household Members Other:: long term Housing: Other Housing Other:: long term Do you presently have visiting nurse or other home services: No Unable to assess alcohol history related to: Unknown Alcohol intake: unknown Patient Tobacco Use Status: Current everyday Tobacco user Tobacco use type: Cigarette Cigarette Packs Per Day: 1 Cigarettes Per Day: 16 Years Smoked: 20 e-Cigarette/Vaping Use: Never Used Substance Use Type: Marijuana Advance Directives: No Advance Directives Information Provided: No service: No Current occupational status: unemployed and disabled Sexual orientation: Don't Know Physical Exam ED Vital Signs: Vital Signs - 24 hr 01/28/23 18:49 Temperature 97.5 F Pulse Rate 90 Respiratory Rate 15 Blood Pressure 147/89 H Pulse Oximetry 98 Oxygen Delivery Method Room Air BMI result Body Mass Index 39.4 Const General: healthy appearing, comfortable, no acute distress, alert and awake Nutritional Appearance: well nourished Orientation/consciousness: patient oriented x3 HENMT Head: Yes normocephalic and Yes atraumatic Throat: Yes posterior oropharynx normal Eyes Eyelids: Yes eyelids normal Conjunctivae: conjunctivae normal Sclerae: sclerae normal Corneas: corneas normal Pupils: Equal, round and reactive pupils present EOM: EOMs intact bilaterally Neck Neck: Yes full ROM Resp Effort & Inspection: normal respiratory effort, able to speak in complete sentences, no audible wheezes and not labored Auscultation: clear to auscultation bilaterally Cardio Rate: regular rate Rhythm: regular rhythm GI Inspection: No distended Palpation (GI): Soft to palpation, not firm, nontender, no guarding and not rigid Auscultation: normoactive bowel sounds Skin General skin exam: no rashes or lesions noted and elasticity normal Neuro General: patient oriented x3 Cranial nerves: Yes CN's II-XII intact bilaterally, Yes Equal, round and reactive pupils present and Yes Bilaterally intact EOM present Cognition (Neuro): normal cognition Extrem Other: Moving all extremities well without any obvious deformities Psych Affect: normal affect Attitude: cooperative Thought process: Normal thought process present Thought content: Suicidality present Course Course Course Narrative: Patient has not yet been seen by the care team. She reports are lucent lesions are gone. She states that they ?come and go but I feel good right now. ? she states that she is not suicidal and has no plans of harming herself or anybody else. Looking back at the patient's doctor history, she does have a long history of auditory hallucinations. I feel the patient is stable for discharge. Medical Decision Making Medical Decision Making [facility] Narrative: This patient will require medical clearance and evaluation by the care team for her auditory hallucinations and suicidal ideation. Differential Diagnosis Bipolar disorder Suicidality Depression Anxiety Lab Data Labs: Lab Results 01/28/23 Range/Units 19:10 COVID-19 (NICK) Negative (Negative) COVID-19 Clin Com See Note Discharge Plan Discharge Clinical Impression: Auditory hallucination Patient Disposition: Home, Self-Care Instructions: Hallucinations (ED) Additional Instructions: Return for any new or worsening symptoms Prescriptions: No Action metformin 500 mg tablet 1 tab PO BID atorvastatin 10 mg tablet 10 mg PO DAILY montelukast 10 mg tablet 1 tab PO BEDTIME nicotine (polacrilex) 4 mg gum 1 ea PO Q2H PRN (Reason: Smoking Cessation) lisinopril 5 mg tablet 1 tab PO DAILY ferrous sulfate 325 mg (65 mg iron) Tablet 325 mg PO DAILY benztropine [Cogentin] 1 mg Tablet 1 mg PO BID fluoxetine 40 mg capsule 2 cap PO DAILY pantoprazole 40 mg tablet,delayed release (DR/EC) 1 tab PO DAILY@0630 mirtazapine 15 mg tablet 0.5 tab PO DAILY albuterol sulfate [Ventolin HFA] 90 mcg/actuation HFA aerosol inhaler 2 puff inhalation Q4-6H PRN (Reason: Shortness Of Breath Or Wheezing) fluphenazine HCl 5 mg tablet 1 tab PO BID chlorpromazine 50 mg tablet 1 tab PO TID PRN (Reason: Agitation) prazosin 1 mg Capsule 4 mg PO BEDTIME 30 Days Qty: 120 0RF Protocol: Hold for SBP< HOLD for SBP < : 90 trazodone 150 mg tablet 1 tab PO BEDTIME meclizine 25 mg tablet 25 mg PO DAILY PRN (Reason: dizziness) Qty: 6 0RF ketorolac 10 mg tablet 10 mg PO TID PRN (Reason: pain) 5 Days Qty: 10 0RF phenazopyridine [Pyridium] 100 mg tablet 200 mg PO TID 2 Days Qty: 6 0RF nitrofurantoin monohyd/m-cryst [Macrobid] 100 mg capsule 100 mg PO BID 5 Days Qty: 10 0RF Rx Instructions: must administer with a meal/food
[2023-01-28 19:38] LABS: COVID-19 Test Negative (Negative); IDNOW Serial# 08D9AD1C
[2023-01-28 20:01] LABS: UPreg QC Valid YES
[2023-01-28 20:03] LABS: Urine Pregnancy NEGATIVE (NEGATIVE)
[2023-01-28 20:06] LABS: Appearance Urine Clear; Color Urine Yellow; Glucose Urine UA Negative (Negative); Leukocyte Esterase Urine Trace (Negative); Nitrite Urine Negative (Negative); PH 6.5 (5.0-9.0); Specific Gravity - Urine <= 1.005 (1.005-1.025); UMIC TRIGGER UA YES; Urine Blood Large (3+) (Negative); Urine Ketones Negative (Negative); Urine Protein Trace mg/dL (Neg-Trace)
[2023-01-28 20:08] LABS: Bacteria Urine None Seen (None Seen); Hyaline Casts Urine 0-2 /LPF (0-2); RBC Urine >20 /HPF (0-2); Squamous Epithelial Cell Urine 0-2 /HPF (0-2); WBC Urine 0-5 /HPF (0-5)
[2023-01-28 20:10] LABS: Amphetamine Screen Urine Not Detected (Not Detect); Barbiturates, Urine Not Detected (Not Detect); Benzodiazepines Screen Urine Not Detected (Not Detect); Cannabinoid Screen Urine Not Detected (Not Detect); Cocaine Screen Urine Not Detected (Not Detect); Fentanyl, urine Not Detected (Not Detect); Opiate Screen Urine Not Detected (Not Detect); Phencyclidine Screen Urine Not Detected (Not Detect)
== END 2023-01-28 20:01 | disposition home or self-care (01) ==
PROVIDERS: Physician Assistant; Emergency Provider Internal Medicine; PCP Nurse Practitioner Family
DX: F33.1 Major depressive disorder, recurrent, moderate (principal); R45.851 Suicidal ideations; R44.0 Auditory hallucinations; Z20.822 Contact with and (suspected) exposure to COVID-19; Z20.828 Contact with and (suspected) exposure to other viral communicable diseases; Z79.899 Other long term (current) drug therapy
CPT/HCPCS: 80307; 81001; 81003; 81025; 87635; 99283

== ENCOUNTER 2023-02-04 18:22 | Emergency (ER) | payer MEDICARE, MEDICAID, SELFPAY ==
[2023-02-04 18:56] VITALS: BP 130/86; BP 136/83; PULSE 116; PULSE 98; RESP 18; O2SAT 116; O2SAT 98; BMI 37.4
[2023-02-04 19:28] LABS: Appearance Urine Clear; Color Urine Yellow; Glucose Urine UA Negative (Negative); Leukocyte Esterase Urine Negative (Negative); Nitrite Urine Negative (Negative); PH 6.5 (5.0-9.0); Urine Blood Negative (Negative); Urine Ketones Negative (Negative); Urine Protein Negative (Neg-Trace)
[2023-02-04 19:29] LABS: MANUAL DIFF FLAG NO
[2023-02-04 19:33] LABS: Basophils Absolute Auto 0.1 X10*3/uL (0.0-0.2); Basophils Percent Auto 0.6 % (0-2); Eosinophils Absolute Auto 0.4 X10*3/uL (0.0-0.4); Eosinophils Percent Auto 4.6 % (0-4); Hematocrit 34.3 % (37.0-47.0); Hemoglobin 10.9 g/dl (12.0-16.0); Imm Gran Abs Auto 0.02 X10*3/uL (0.00-0.03); Imm Gran Pct Auto 0.3 % (0.0-0.4); Lymphocytes Absolute Auto 1.6 X10*3/uL (1.2-4.9); Lymphocytes Percent Auto 20.7 % (20-40); Mean Corpuscular HGB Conc 31.8 g/dl (31.0-35.0); Mean Corpuscular Hemoglobin 27.6 pg (27.0-33.0); Mean Corpuscular Volume 86.8 fL (80.0-98.0); Mean Platelet Volume 9.7 fL (9.4-12.3); Monocytes Absolute Auto 0.6 X10*3/uL (0.1-1.2); Monocytes Percent Auto 7.7 % (2-11); Neutrophils Absolute Auto 5.2 x10*3/uL (2.0-8.3); Neutrophils Percent Auto 66.1 % (45-73); Platelet Count 282 X10*3/uL (160-400); Red Blood Count 3.95 X10*6/uL (4.20-5.50); Red Cell Distribution Width 15.2 % (11.0-16.0); White Blood Count 7.8 X10*3/uL (4.8-10.8)
[2023-02-04 19:34] LABS: Bacteria Urine None Seen (None Seen); Hyaline Casts Urine 0-2 /LPF (0-2); RBC Urine 0-2 /HPF (0-2); Squamous Epithelial Cell Urine 0-2 /HPF (0-2); WBC Urine 0-5 /HPF (0-5)
[2023-02-04 19:39] LABS: Amphetamine Screen Urine Not Detected (Not Detect); Barbiturates, Urine Not Detected (Not Detect); Benzodiazepines Screen Urine Not Detected (Not Detect); Cannabinoid Screen Urine Not Detected (Not Detect); Cocaine Screen Urine Not Detected (Not Detect); Fentanyl, urine Not Detected (Not Detect); Opiate Screen Urine Not Detected (Not Detect); Phencyclidine Screen Urine Not Detected (Not Detect)
[2023-02-04 19:42] LABS: COVID-19 Test Negative (Negative); IDNOW Serial# 08D9AD1C
--- NOTE | 2023-02-04 19:46 | ED.PSYCH ---
HPI - Psych General Chief Complaint: Psychiatric Symptoms Stated Complaint: SI Time Seen by Provider: 02/04/23 18:43 Source: patient Mode of arrival: ambulatory Limitations: no limitations History of Present Illness HPI Narrative: 47 yold female presents to the ER for Suicidal ideation. patient states no specific plan. patient denies any physical complaints. Related Data Home Medications Medication Instructions Recorded Confirmed atorvastatin 10 mg tablet 10 mg PO DAILY 05/29/21 01/28/23 metformin 500 mg tablet 1 tab PO BID 05/29/21 01/28/23 montelukast 10 mg tablet 1 tab PO BEDTIME 05/29/21 01/28/23 lisinopril 5 mg tablet 1 tab PO DAILY 07/30/22 01/28/23 nicotine (polacrilex) 4 mg gum 1 ea PO Q2H PRN Smoking Cessation 07/30/22 01/28/23 trazodone 150 mg tablet 1 tab PO BEDTIME 09/23/22 01/28/23 benztropine 1 mg tablet 1 mg PO BID 12/19/22 01/28/23 ferrous sulfate 325 mg (65 mg 325 mg PO DAILY 12/19/22 01/28/23 iron) tablet albuterol sulfate 90 mcg/actuation 2 puff inhalation Q4-6H PRN 12/24/22 01/28/23 aerosol inhaler (Ventolin HFA) Shortness Of Breath Or Wheezing chlorpromazine 50 mg tablet 1 tab PO TID PRN Agitation 12/24/22 01/28/23 fluoxetine 40 mg capsule 2 cap PO DAILY 12/24/22 01/28/23 fluphenazine HCl 5 mg tablet 1 tab PO BID 12/24/22 01/28/23 mirtazapine 15 mg tablet 0.5 tab PO DAILY 12/24/22 01/28/23 pantoprazole 40 mg tablet,delayed 1 tab PO DAILY@0630 12/24/22 01/28/23 release Previous Rx's Medication Instructions Recorded prazosin 1 mg capsule 4 mg PO BEDTIME 30 days #120 caps 10/18/21 ketorolac 10 mg tablet 10 mg PO TID PRN pain 5 days #10 01/24/23 tabs meclizine 25 mg tablet 25 mg PO DAILY PRN dizziness #6 01/24/23 tabs phenazopyridine 100 mg tablet 200 mg PO TID 2 days #6 tabs 01/24/23 (Pyridium) nitrofurantoin 100 mg PO BID 5 days #10 caps 01/27/23 monohydrate/macrocrystals 100 mg capsule (Macrobid) Allergies Allergy/AdvReac Type Severity Reaction Status Date / Time Fish Containing Products Allergy Severe ANAPHYLAXIS Verified 12/24/22 11:47 codeine [Codeine] Allergy Intermediate RASH Verified 12/24/22 11:47 Penicillins Allergy Intermediate RASH Verified 12/24/22 11:47 prednisone [Prednisone] Allergy Intermediate RASH Verified 12/24/22 11:47 Sulfa (Sulfonamide Allergy Intermediate RASH Verified 12/24/22 11:47 Antibiotics) [Sulfa (Sulfonamides)] azithromycin [AZITHROMYCIN] AdvReac Severe RASH Verified 12/24/22 11:47 ziprasidone [From Geodon] AdvReac Intermediate dysuria, Verified 12/24/22 11:47 rash Review of Systems Review of Systems: SI Yes all other systems are reviewed and are negative PMFSH Past Medical History Medical History Acetaminophen overdose Borderline personality disorder Bronchitis Depression Diabetes type 2, controlled Full body hives GERD (gastroesophageal reflux disease) History of attempted suicide History of non-suicidal self-harm Hyperlipidemia Hypomagnesemia Major depression MDD (major depressive disorder), recurrent episode, severe Mood disorder Overdose PTSD (post-traumatic stress disorder) Suicide attempt Suicide attempt by acetaminophen overdose Social History Social History Household Members: Other Household Members Other:: assisted Housing: Other Housing Other:: assisted Do you presently have visiting nurse or other home services: No Unable to assess alcohol history related to: Unknown Alcohol intake: unknown Patient Tobacco Use Status: Current everyday Tobacco user Tobacco use type: Cigarette Cigarette Packs Per Day: 1 Cigarettes Per Day: 16 Years Smoked: 20 e-Cigarette/Vaping Use: Never Used Substance Use Type: Marijuana Advance Directives: No Advance Directives Information Provided: Yes service: No Current occupational status: unemployed and disabled Sexual orientation: Don't Know Physical Exam Vital Signs: Vital Signs: Last Vital Signs Pulse 106 H 02/04/23 20:15 Resp 18 02/04/23 20:15 BP 136/83 02/04/23 18:56 Pulse Ox 96 02/04/23 20:15 O2 Del Method Room Air 02/04/23 20:15 BMI result Body Mass Index 37.4 Const: General: cooperative, healthy appearing, comfortable, no acute distress, well developed, alert, awake and Physically active Orientation/consciousness: oriented to person and patient oriented x3 HEENT: Head: Yes normal to inspection, Yes No palpable skull fracture present, Yes normocephalic, Yes atraumatic and No abrasion Eyes: General: appearance normal, both eyes and all related structures Neck: Neck: Yes normal visual inspection, Yes full ROM, Yes no lymphadenopathy, Yes no meningeal signs, Yes trachea midline, Yes supple, No anterior neck swelling and No tender Chest: Chest palpation & inspection: normal inspection of the chest and normal palpation of entire chest wall Resp: Effort & Inspection: normal respiratory effort and able to speak in complete sentences Auscultation: clear to auscultation bilaterally Cardio: Jugular venous distension: no JVD Heart sounds: S1 normal heart sound present and S2 normal heart sound present GI: Inspection: Yes normal to inspection and No abdominal wall ecchymosis Palpation (GI): Soft to palpation, not firm, nontender, no guarding and not rigid : General: No CVA tenderness and Yes no CVA tenderness Back/Spine/Pelvis: Back: no CVA tenderness, No CVA tenderness and No back tenderness Skin: General skin exam: no rashes or lesions noted and elasticity normal Neuro: General: oriented to person, patient oriented x3, gait normal, tone normal, moves all extremities, Normal light touch and pain sensation, no meningeal signs, no focal motor deficits, CN's II-XI intact bilaterally and normal sensation to monofilament Extrem: Other: old bilateral forearm excoriations from self cutting General: Yes normal to inspection and Yes full ROM Psych: Appearance: grossly normal, well kempt and not disheveled Course Course Course Narrative: labs Drawn and will be evaluated by care team Reevaluation(s) Reevaluation #1: Patient evaluated by care team who states patient is safe for discharge. No need for psych admission. Patient has good follow-up with therapist and psychiatrist. Time: 21:15 Medical Decision Making Medical Decision Making MDM Narrative: 47-year-old female presents to the Suicidal Ideation. Patient known to the ED for suicidal ideation and depression. Patient has no plan. Patient feels better would like to be discharged. Patient is seen and cleared by care team crisis consulted. Differential Diagnosis Differential Diagnoses: The differential diagnosis associated with the presentation includes (Depression, Suicidal, homicidal) Admission/Observation Consideration of admission/observation: Escalation of care including admission/observation considered Consult Healthcare Provider Management of the patient was discussed with: Forensic Psychologist (Care team Crisis) Lab Data MDM Lab Attestation statement: I reviewed the patient's lab results. 02/04/23 19:24 02/04/23 19:24 Labs: Lab Results 02/04/23 02/04/23 02/04/23 Range/Units 19:08 19:09 19:09 WBC (4.8-10.8) X10*3/uL RBC (4.20-5.50) X10*6/uL Hgb (12.0-16.0) g/dl Hct (37.0-47.0) % MCV (80.0-98.0) fL MCH (27.0-33.0) pg MCHC (31.0-35.0) g/dl RDW (11.0-16.0) % Plt Count (160-400) X10*3/uL MPV (9.4-12.3) fL Immature Gran % (Auto) (0.0-0.4) % Neut % (Auto) (45-73) % Lymph % (Auto) (20-40) % [place] % (Auto) (2-11) % Eos % (Auto) (0-4) % Baso % (Auto) (0-2) % Lymph # (Auto) (1.2-4.9) X10*3/uL [place] # (Auto) (0.1-1.2) X10*3/uL Eos # (Auto) (0.0-0.4) X10*3/uL Baso # (Auto) (0.0-0.2) X10*3/uL Abs Immat Gran (auto) (0.00-0.03) X10*3/uL Absolute Neuts (auto) (2.0-8.3) x10*3/uL Absolute Nucleated RBC (0.0-0.012) X10*3/uL Nucleated RBC % (auto) (0.0-0.2) /100WBC Sodium (135-145) mmol/L Potassium (3.3-5.1) mmol/L Chloride (96-108) mmol/L Carbon Dioxide (22-29) mmol/L Anion Gap (12-20) BUN (9-16) mg/dL Creatinine (0.5-1.4) mg/dL Estim Creat Clear Calc Estimated GFR Random Glucose (60-115) mg/dL Calcium (8.4-10.2) mg/dL Total Bilirubin (0.0-1.0) mg/dL AST (5-31) U/L ALT (0-31) U/L Alkaline Phosphatase (39-117) U/L Total Protein (6.5-8.0) g/dL Albumin (3.5-5.0) g/dL Urine Color Yellow Urine Appearance Clear Urine pH 6.5 (5.0-9.0) Ur Specific [place] 1.010 (1.005-1.025) Urine Protein Negative (Neg-Trace) mg/dL Urine Glucose (UA) Negative (Negative) mg/dL Urine Ketones Negative (Negative) mg/dL Urine Blood Negative (Negative) Urine Nitrite Negative (Negative) Ur Leukocyte Esterase Negative (Negative) Urine RBC 0-2 (0-2) /HPF Urine WBC 0-5 (0-5) /HPF Ur Squamous Epith Cells 0-2 (0-2) /HPF Urine Bacteria None Seen (None Seen) Hyaline Casts 0-2 (0-2) /LPF Urine Opiates Screen Not Detected (Not Detect) Urine Fentanyl Screen Not Detected (Not Detect) Ur Barbiturates Screen Not Detected (Not Detect) Ur Phencyclidine Scrn Not Detected (Not Detect) Ur Amphetamines Screen Not Detected (Not Detect) U Benzodiazepines Scrn Not Detected (Not Detect) Urine Cocaine Screen Not Detected (Not Detect) U Marijuana (THC) Screen Not Detected (Not Detect) Ethyl Alcohol mg/dL COVID-19 (NICK) Negative (Negative) COVID-19 Clin Com See Note 02/04/23 02/04/23 Range/Units 19:24 19:24 WBC 7.8 (4.8-10.8) X10*3/uL RBC 3.95 L (4.20-5.50) X10*6/uL Hgb 10.9 L (12.0-16.0) g/dl Hct 34.3 L (37.0-47.0) % MCV 86.8 (80.0-98.0) fL MCH 27.6 (27.0-33.0) pg MCHC 31.8 (31.0-35.0) g/dl RDW 15.2 (11.0-16.0) % Plt Count 282 (160-400) X10*3/uL MPV 9.7 (9.4-12.3) fL Immature Gran % (Auto) 0.3 (0.0-0.4) % Neut % (Auto) 66.1 (45-73) % Lymph % (Auto) 20.7 (20-40) % [place] % (Auto) 7.7 (2-11) % Eos % (Auto) 4.6 H (0-4) % Baso % (Auto) 0.6 (0-2) % Lymph # (Auto) 1.6 (1.2-4.9) X10*3/uL [place] # (Auto) 0.6 (0.1-1.2) X10*3/uL Eos # (Auto) 0.4 (0.0-0.4) X10*3/uL Baso # (Auto) 0.1 (0.0-0.2) X10*3/uL Abs Immat Gran (auto) 0.02 (0.00-0.03) X10*3/uL Absolute Neuts (auto) 5.2 (2.0-8.3) x10*3/uL Absolute Nucleated RBC 0.000 (0.0-0.012) X10*3/uL Nucleated RBC % (auto) 0.0 (0.0-0.2) /100WBC Sodium 138 (135-145) mmol/L Potassium 4.0 (3.3-5.1) mmol/L Chloride 106 (96-108) mmol/L Carbon Dioxide 23 (22-29) mmol/L Anion Gap 13 (12-20) BUN 12 (9-16) mg/dL Creatinine 0.82 (0.5-1.4) mg/dL Estim Creat Clear Calc 98.9 Estimated GFR > 60 Random Glucose 176 H (60-115) mg/dL Calcium 8.7 (8.4-10.2) mg/dL Total Bilirubin 0.2 (0.0-1.0) mg/dL AST 19 (5-31) U/L ALT 20 (0-31) U/L Alkaline Phosphatase 107 (39-117) U/L Total Protein 6.7 (6.5-8.0) g/dL Albumin 4.2 (3.5-5.0) g/dL Urine Color Urine Appearance Urine pH (5.0-9.0) Ur Specific [place] (1.005-1.025) Urine Protein (Neg-Trace) mg/dL Urine Glucose (UA) (Negative) mg/dL Urine Ketones (Negative) mg/dL Urine Blood (Negative) Urine Nitrite (Negative) Ur Leukocyte Esterase (Negative) Urine RBC (0-2) /HPF Urine WBC (0-5) /HPF Ur Squamous Epith Cells (0-2) /HPF Urine Bacteria (None Seen) Hyaline Casts (0-2) /LPF Urine Opiates Screen (Not Detect) Urine Fentanyl Screen (Not Detect) Ur Barbiturates Screen (Not Detect) Ur Phencyclidine Scrn (Not Detect) Ur Amphetamines Screen (Not Detect) U Benzodiazepines Scrn (Not Detect) Urine Cocaine Screen (Not Detect) U Marijuana (THC) Screen (Not Detect) Ethyl Alcohol < 10 mg/dL COVID-19 ([facility]ICK) (Negative) COVID-19 Clin Com External Record Review External record reviewed: Inpatient record Chronic Conditions Patient?s care impacted by: Other (Depression) Discharge Plan Discharge Clinical Impression: Depression Patient Disposition: Home, Self-Care Instructions: Depression (ED) Additional Instructions: Return to the ED immediately for any suicidal/homicidal ideation, auditory/visual hallucination, any physical complaints, or any other concerning symptoms. Prescriptions: No Action metformin 500 mg tablet 1 tab PO BID atorvastatin 10 mg tablet 10 mg PO DAILY montelukast 10 mg tablet 1 tab PO BEDTIME nicotine (polacrilex) 4 mg gum 1 ea PO Q2H PRN (Reason: Smoking Cessation) lisinopril 5 mg tablet 1 tab PO DAILY ferrous sulfate 325 mg (65 mg iron) Tablet 325 mg PO DAILY benztropine [Cogentin] 1 mg Tablet 1 mg PO BID fluoxetine 40 mg capsule 2 cap PO DAILY pantoprazole 40 mg tablet,delayed release (DR/EC) 1 tab PO DAILY@0630 mirtazapine 15 mg tablet 0.5 tab PO DAILY albuterol sulfate [Ventolin HFA] 90 mcg/actuation HFA aerosol inhaler 2 puff inhalation Q4-6H PRN (Reason: Shortness Of Breath Or Wheezing) fluphenazine HCl 5 mg tablet 1 tab PO BID chlorpromazine 50 mg tablet 1 tab PO TID PRN (Reason: Agitation) prazosin 1 mg Capsule 4 mg PO BEDTIME 30 Days Qty: 120 0RF Protocol: Hold for SBP< HOLD for SBP < : 90 trazodone 150 mg tablet 1 tab PO BEDTIME meclizine 25 mg tablet 25 mg PO DAILY PRN (Reason: dizziness) Qty: 6 0RF ketorolac 10 mg tablet 10 mg PO TID PRN (Reason: pain) 5 Days Qty: 10 0RF phenazopyridine [Pyridium] 100 mg tablet 200 mg PO TID 2 Days Qty: 6 0RF nitrofurantoin monohyd/m-cryst [Macrobid] 100 mg capsule 100 mg PO BID 5 Days Qty: 10 0RF Rx Instructions: must administer with a meal/food Interventions: [place]-Suicide Risk Severity Scale Last Done: 02/04/23 20:51 ED Discharge Assessment Last Done: 02/04/23 20:53 Discharge Date/Time: 02/04/23 20:54 Print Language: [place]
[2023-02-04 19:50] LABS: Alanine Aminotransferase 20 U/L (0-31); Albumin Level 4.2 g/dL (3.5-5.0); Alkaline Phosphatase 107 U/L (39-117); Anion Gap 13 (12-20); Aspartate Amino Transferase 19 U/L (5-31); Bilirubin Total 0.2 mg/dL (0.0-1.0); Blood Urea Nitrogen 12 mg/dL (9-16); Calcium 8.7 mg/dL (8.4-10.2); Carbon Dioxide 23 mmol/L (22-29); Chloride 106 mmol/L (96-108); Creatinine Clr Calc Pharmacy 98.9; Estimated Glomerular Filt Rate > 60; Ethanol < 10 mg/dL; Glucose Random 176 mg/dL (60-115); Sodium 138 mmol/L (135-145); Total Protein 6.7 g/dL (6.5-8.0)
[2023-02-04 20:15] VITALS: PULSE 106; RESP 18; O2SAT 96
== END 2023-02-04 20:54 | disposition home or self-care (01) ==
PROVIDERS: Emergency Provider Internal Medicine
DX: F33.1 Major depressive disorder, recurrent, moderate (principal); R45.851 Suicidal ideations; F17.210 Nicotine dependence, cigarettes, uncomplicated; Z20.822 Contact with and (suspected) exposure to COVID-19; Z20.828 Contact with and (suspected) exposure to other viral communicable diseases; Z71.6 Tobacco abuse counseling; Z79.899 Other long term (current) drug therapy
CPT/HCPCS: 80053; 80307; 81001; 82077; 85025; 87635; 99284

== ENCOUNTER 2023-02-07 19:01 | Emergency (ER) | payer MEDICARE, MEDICAID, SELFPAY ==
[2023-02-07 19:09] VITALS: BP 132/88; PULSE 103; RESP 17; TEMP 36.6; O2SAT 98; BMI 40.3
--- NOTE | 2023-02-07 20:00 | ED_ITS ---
HPI - General Adult General Chief complaint: Psychiatric Symptoms Stated complaint: SI Time Seen by Provider: 02/07/23 19:35 Source: patient, RN notes reviewed and old records reviewed Mode of arrival: EMS Limitations: no limitations History of Present Illness HPI narrative: 47-year-old female past medical history significant for bipolar disorder, PTSD, depression presents for evaluation of ?hearing voices. ? Patient reports that she had a panic attack around 6:00 p.m. She states when she gets really anxious she starts to hear voices. She reported the voices without telling her to cut her wrists and to ?overdose. ? Patient did scratch herself a few times in the left forearm She states that she is no longer hearing voices, she is not suicidal She reports that she is compliant with her medications She is well known to this ER for similar visits Related Data Home Medications Medication Instructions Recorded Confirmed atorvastatin 10 mg tablet 10 mg PO DAILY 05/29/21 02/07/23 metformin 500 mg tablet 1 tab PO BID 05/29/21 02/07/23 montelukast 10 mg tablet 1 tab PO BEDTIME 05/29/21 02/07/23 lisinopril 5 mg tablet 1 tab PO DAILY 07/30/22 02/07/23 nicotine (polacrilex) 4 mg gum 1 ea PO Q2H PRN Smoking Cessation 07/30/22 02/07/23 trazodone 150 mg tablet 1 tab PO BEDTIME 09/23/22 01/28/23 benztropine 1 mg tablet 1 mg PO BID 12/19/22 02/07/23 ferrous sulfate 325 mg (65 mg 325 mg PO DAILY 12/19/22 02/07/23 iron) tablet albuterol sulfate 90 mcg/actuation 2 puff inhalation Q4-6H PRN 12/24/22 02/07/23 aerosol inhaler (Ventolin HFA) Shortness Of Breath Or Wheezing chlorpromazine 50 mg tablet 1 tab PO TID PRN Agitation 12/24/22 02/07/23 fluoxetine 40 mg capsule 2 cap PO DAILY 12/24/22 02/07/23 fluphenazine HCl 5 mg tablet 1 tab PO BID 12/24/22 02/07/23 mirtazapine 15 mg tablet 0.5 tab PO DAILY 12/24/22 02/07/23 pantoprazole 40 mg tablet,delayed 1 tab PO DAILY@0630 12/24/22 02/07/23 release Previous Rx's Medication Instructions Recorded prazosin 1 mg capsule 4 mg PO BEDTIME 30 days #120 caps 10/18/21 ketorolac 10 mg tablet 10 mg PO TID PRN pain 5 days #10 01/24/23 tabs meclizine 25 mg tablet 25 mg PO DAILY PRN dizziness #6 01/24/23 tabs phenazopyridine 100 mg tablet 200 mg PO TID 2 days #6 tabs 01/24/23 (Pyridium) Allergies Allergy/AdvReac Type Severity Reaction Status Date / Time Fish Containing Products Allergy Severe ANAPHYLAXIS Verified 12/24/22 11:47 codeine [Codeine] Allergy Intermediate RASH Verified 12/24/22 11:47 Penicillins Allergy Intermediate RASH Verified 12/24/22 11:47 prednisone [Prednisone] Allergy Intermediate RASH Verified 12/24/22 11:47 Sulfa (Sulfonamide Allergy Intermediate RASH Verified 12/24/22 11:47 Antibiotics) [Sulfa (Sulfonamides)] azithromycin [AZITHROMYCIN] AdvReac Severe RASH Verified 12/24/22 11:47 ziprasidone [From Geodon] AdvReac Intermediate dysuria, Verified 12/24/22 11:47 rash Review of Systems Constitutional: Constitutional: Denies chills, Denies fever(s) and Denies headache(s) ENT: Denies headache(s) Neurologic: Denies headache(s) Psychiatric: Psychiatric: Reports anxiety, Reports depression, Reports panic attacks and Denies homicidal ideation PMFSH Past Medical History Medical History Acetaminophen overdose Borderline personality disorder Bronchitis Depression Diabetes type 2, controlled Full body hives GERD (gastroesophageal reflux disease) History of attempted suicide History of non-suicidal self-harm Hyperlipidemia Hypomagnesemia Major depression MDD (major depressive disorder), recurrent episode, severe Mood disorder Overdose PTSD (post-traumatic stress disorder) Suicide attempt Suicide attempt by acetaminophen overdose Social History Social History Household Members: Other Household Members Other:: [facility] Housing: Other Housing Other:: [facility] Do you presently have visiting nurse or other home services: No Unable to assess alcohol history related to: Unknown Alcohol intake: unknown Patient Tobacco Use Status: Current everyday Tobacco user Tobacco use type: Cigarette Cigarette Packs Per Day: 1 Cigarettes Per Day: 16 Years Smoked: 20 e-Cigarette/Vaping Use: Never Used Substance Use Type: Marijuana Advance Directives: No Advance Directives Information Provided: No service: No Current occupational status: unemployed and disabled Sexual orientation: Don't Know Physical Exam ED Vital Signs: Vital Signs - 24 hr 02/07/23 19:09 Temperature 97.8 F Pulse Rate 103 H Respiratory Rate 17 Blood Pressure 132/88 Pulse Oximetry 98 Oxygen Delivery Method Room Air BMI result Body Mass Index 40.3 Const General: cooperative, healthy appearing, comfortable, no acute distress and well developed Orientation/consciousness: patient oriented x3 Limitations: no limitations Resp Effort & Inspection: normal respiratory effort and able to speak in complete sentences Skin Other: Patient has 2 superficial scratches to left forearm. No deep lacerations Neuro General: patient oriented x3 Psych Appearance: grossly normal Mental Status: mental status grossly normal Speech and movement: Normal speech and movement present Affect: normal affect Attitude: cooperative Thought process: Normal thought process present Medical Decision Making Medical Decision Making MDM Narrative: Depression Anxiety Suicidal ideation Bipolar disorder PTSD Differential Diagnosis Patient is currently calm, cooperative. She is not suicidal. She is requesting discharge. I reviewed her previous visits. I feel the patient stable for discharge at this time. She feels comfortable with discharge and she will be discharged back to her [facility] Discharge Plan Discharge Clinical Impression: Anxiety Patient Disposition: Home, Self-Care Instructions: Anxiety (ED) Additional Instructions: Take all the medications as prescribed. Return to the ER immediately if you are having any thoughts of suicide Prescriptions: No Action metformin 500 mg tablet 1 tab PO BID atorvastatin 10 mg tablet 10 mg PO DAILY montelukast 10 mg tablet 1 tab PO BEDTIME nicotine (polacrilex) 4 mg gum 1 ea PO Q2H PRN (Reason: Smoking Cessation) lisinopril 5 mg tablet 1 tab PO DAILY ferrous sulfate 325 mg (65 mg iron) Tablet 325 mg PO DAILY benztropine [Cogentin] 1 mg Tablet 1 mg PO BID fluoxetine 40 mg capsule 2 cap PO DAILY pantoprazole 40 mg tablet,delayed release (DR/EC) 1 tab PO DAILY@0630 mirtazapine 15 mg tablet 0.5 tab PO DAILY albuterol sulfate [Ventolin HFA] 90 mcg/actuation HFA aerosol inhaler 2 puff inhalation Q4-6H PRN (Reason: Shortness Of Breath Or Wheezing) fluphenazine HCl 5 mg tablet 1 tab PO BID chlorpromazine 50 mg tablet 1 tab PO TID PRN (Reason: Agitation) prazosin 1 mg Capsule 4 mg PO BEDTIME 30 Days Qty: 120 0RF Protocol: Hold for SBP< HOLD for SBP < : 90 trazodone 150 mg tablet 1 tab PO BEDTIME meclizine 25 mg tablet 25 mg PO DAILY PRN (Reason: dizziness) Qty: 6 0RF ketorolac 10 mg tablet 10 mg PO TID PRN (Reason: pain) 5 Days Qty: 10 0RF phenazopyridine [Pyridium] 100 mg tablet 200 mg PO TID 2 Days Qty: 6 0RF
[2023-02-07 20:10] LABS: COVID-19 Test Negative (Negative); IDNOW Serial# BCCEAD1C
== END 2023-02-07 20:13 | disposition home or self-care (01) ==
PROVIDERS: Emergency Provider Emergency Medicine Emergency Medical Services; PCP Nurse Practitioner Family
DX: F33.1 Major depressive disorder, recurrent, moderate (principal); R45.851 Suicidal ideations; F41.9 Anxiety disorder, unspecified; F43.0 Acute stress reaction; F17.210 Nicotine dependence, cigarettes, uncomplicated; Z20.822 Contact with and (suspected) exposure to COVID-19; Z20.828 Contact with and (suspected) exposure to other viral communicable diseases; Z71.6 Tobacco abuse counseling; Z79.899 Other long term (current) drug therapy
CPT/HCPCS: 87635; 99283

== ENCOUNTER 2023-02-10 10:51 | Emergency (ER) | payer MEDICARE, MEDICAID, SELFPAY ==
--- NOTE | 2023-02-10 10:54 | ED.GENADULT ---
HPI - General Adult General Chief complaint: Psychiatric Symptoms Stated complaint: CRISIS, HEARING VOICES Time Seen by Provider: 02/10/23 10:54 Source: patient and EMS Mode of arrival: EMS Limitations: no limitations History of Present Illness HPI narrative: Patient is a 47 year old assigned female at with a history of anxiety and auditory hallucinations presenting to the emergency department today with worsening auditory hallucinations. Patient states that she has been having worsening auditory hallucinations. Patient denies any dizziness, lightheadedness, abdominal pain, nausea, vomiting, fever, chills, blurry vision, double vision, loss of vision, chest pain, difficulty breathing, shortness of breath, back pain, night sweats, pain with urination, increased urinary frequency, increased urinary urgency, blood in her urine or stool, syncope or a near syncopal episode, recent trauma or falls, bowel incontinence, bladder incontinence, bowel retention, bladder retention, or any other complaints at this time. Severity: mild Relieving factors: none Exacerbating factors: none Associated symptoms: denies other symptoms Treatments prior to arrival: none Related Data Home Medications Medication Instructions Recorded Confirmed atorvastatin 10 mg tablet 10 mg PO DAILY 05/29/21 02/07/23 metformin 500 mg tablet 1 tab PO BID 05/29/21 02/07/23 montelukast 10 mg tablet 1 tab PO BEDTIME 05/29/21 02/07/23 lisinopril 5 mg tablet 1 tab PO DAILY 07/30/22 02/07/23 nicotine (polacrilex) 4 mg gum 1 ea PO Q2H PRN Smoking Cessation 07/30/22 02/07/23 trazodone 150 mg tablet 1 tab PO BEDTIME 09/23/22 01/28/23 benztropine 1 mg tablet 1 mg PO BID 12/19/22 02/07/23 ferrous sulfate 325 mg (65 mg 325 mg PO DAILY 12/19/22 02/07/23 iron) tablet albuterol sulfate 90 mcg/actuation 2 puff inhalation Q4-6H PRN 12/24/22 02/07/23 aerosol inhaler (Ventolin HFA) Shortness Of Breath Or Wheezing chlorpromazine 50 mg tablet 1 tab PO TID PRN Agitation 12/24/22 02/07/23 fluoxetine 40 mg capsule 2 cap PO DAILY 12/24/22 02/07/23 fluphenazine HCl 5 mg tablet 1 tab PO BID 12/24/22 02/07/23 mirtazapine 15 mg tablet 0.5 tab PO DAILY 12/24/22 02/07/23 pantoprazole 40 mg tablet,delayed 1 tab PO DAILY@0630 12/24/22 02/07/23 release Previous Rx's Medication Instructions Recorded prazosin 1 mg capsule 4 mg PO BEDTIME 30 days #120 caps 10/18/21 ketorolac 10 mg tablet 10 mg PO TID PRN pain 5 days #10 01/24/23 tabs meclizine 25 mg tablet 25 mg PO DAILY PRN dizziness #6 01/24/23 tabs phenazopyridine 100 mg tablet 200 mg PO TID 2 days #6 tabs 01/24/23 (Pyridium) Allergies Allergy/AdvReac Type Severity Reaction Status Date / Time Fish Containing Products Allergy Severe ANAPHYLAXIS Verified 12/24/22 11:47 codeine [Codeine] Allergy Intermediate RASH Verified 12/24/22 11:47 Penicillins Allergy Intermediate RASH Verified 12/24/22 11:47 prednisone [Prednisone] Allergy Intermediate RASH Verified 12/24/22 11:47 Sulfa (Sulfonamide Allergy Intermediate RASH Verified 12/24/22 11:47 Antibiotics) [Sulfa (Sulfonamides)] azithromycin [AZITHROMYCIN] AdvReac Severe RASH Verified 12/24/22 11:47 ziprasidone [From Geodon] AdvReac Intermediate dysuria, Verified 12/24/22 11:47 rash Review of Systems Constitutional: Constitutional: Reports no additional constitutional complaints, Denies chills, Denies fever(s) and Denies night sweats Eyes: Eyes: Reports no additional eye complaints, Denies blurry vision, Denies change in vision, Denies diplopia, Denies eye discharge, Denies loss of vision and Denies eye pain ENT: Denies dizziness Cardiovascular: Cardiovascular: Reports no additional cardiovascular complaints, Denies chest pain, Denies lightheadedness, Denies Loss of Consciousness and Denies dyspnea Respiratory: Respiratory: Reports no additional respiratory complaints and Denies dyspnea Gastrointestinal: Gastrointestinal: Reports no additional gastrointestinal complaints, Denies abdominal pain, Denies melena, Denies hematochezia, Denies change in bowel habits and Denies change in stool character Genitourinary: Genitourinary: Denies hematuria, Denies urinary frequency, Denies dysuria, Denies urinary incontinence, Denies urinary hesitancy and Denies urinary urgency Musculoskeletal: Musculoskeletal: Reports no additional musculoskeletal complaints, Denies numbness and Denies tingling Neurologic: Denies dizziness, Denies loss of vision, Denies numbness and Denies tingling Psychiatric: Psychiatric: Reports no additional psychiatric complaints and Reports auditory hallucinations Endocrine: Endocrine: Reports no additional endocrine complaints Hematologic/Lymphatic: Hematologic/Lymphatic: Reports no additional hematologic/lymphatic complaints Allergic/Immunologic: Allergic/Immunologic: Reports no additional allergic/immunologic complaints PMFSH Past Medical History Attestation statement: The following information was validated with the patient. 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: Other Household Members Other:: long-term Housing: Other Housing Other:: long-term Do you presently have visiting nurse or other home services: No Unable to assess alcohol history related to: Unknown Alcohol intake: unknown Patient Tobacco Use Status: Current everyday Tobacco user Tobacco use type: Cigarette Cigarette Packs Per Day: 1 Cigarettes Per Day: 16 Years Smoked: 20 e-Cigarette/Vaping Use: Never Used Substance Use Type: Marijuana Advance Directives: No Advance Directives Information Provided: No Healthcare Proxy: No Guardian: No service: No Current occupational status: unemployed and disabled Sexual orientation: Don't Know Physical Exam ED Vital Signs: Vital Signs - 24 hr 02/10/23 10:59 Temperature 97.8 F Pulse Rate 87 Respiratory Rate 16 Blood Pressure 135/80 Pulse Oximetry 97 Oxygen Delivery Method Room Air BMI result Body Mass Index 31.6 Const General: cooperative, no acute distress, alert and awake Nutritional Appearance: well nourished Orientation/consciousness: patient oriented x3 Limitations: no limitations HENMT Head: Yes normal to inspection and Yes atraumatic Ears: hearing grossly normal bilaterally and external ears normal General nose exam: Normal external nose present, no nasal discharge noted and no epistaxis Face and sinus: Yes normal facial exam, No abrasion and No laceration Mouth: Normal oral and palatal mucosa present, no drooling and no muffled voice Eyes General: appearance normal, both eyes and all related structures Periorbital: periorbital findings normal Eyelids: Yes eyelids normal Conjunctivae: conjunctivae normal Pupils: Equal, round and reactive pupils present EOM: EOMs intact bilaterally Neck Neck: Yes normal visual inspection, Yes full ROM and Yes no lymphadenopathy Chest Chest palpation & inspection: normal inspection of the chest Resp Effort & Inspection: normal respiratory effort and able to speak in complete sentences Auscultation: clear to auscultation bilaterally Cardio Rate: regular rate Rhythm: regular rhythm GI Inspection: Yes normal to inspection Neuro General: patient oriented x3 and moves all extremities Cranial nerves: Yes Equal, round and reactive pupils present Cognition (Neuro): normal cognition Motor exam (neuro): 5/5 motor strength present throughout Sensory Exam: Normal double simultaneous stimulation for sensation Coordination: [id number] test normal Extrem General: Yes normal to inspection, Yes full ROM and Yes capillary refill normal Psych Appearance: grossly normal Mental Status: mental status grossly normal Affect: normal affect Attitude: cooperative Thought process: Normal thought process present Thought content: Normal thought content present Insight: Good insight present (Psych) Medical Decision Making Medical Decision Making [facility] Narrative: Patient is a 47 year old assigned female at with a history of anxiety and auditory hallucinations presenting to the emergency department today with an increase in auditory hallucinations. Patient's physical exam was unremarkable. Patient evaluated by CARE team. Patient requested to go home and states that the voices are manageable. I explained my physical exam findings as well as all test results to the patient. I answered all questions asked by the patient. I stressed the importance of the patient taking her medication as prescribed. I stressed the importance of the patient following up with her primary care provider. I stressed the importance of the patient returning to the emergency department immediately if her symptoms were to worsen or if she were to develop any dizziness, shortness of breath, difficulty breathing, chest pain, blurry vision, loss of vision, nausea, vomiting, abdominal pain, fever, chills, back pain, or any other complaints. Patient verbalized agreement and understanding with this treatment plan and discharge. Differential Diagnosis Differential Diagnoses: The differential diagnosis associated with the presentation includes increased auditory hallucinations Lab Data [facility] Lab Attestation statement: I reviewed the patient's lab results. Labs: Lab Results 02/10/23 Range/Units 11:10 COVID-19 ([facility]) Negative (Negative) COVID-19 Clin Com See Note Discharge Plan Discharge Clinical Impression: Auditory hallucination Patient Disposition: Home, Self-Care Instructions: Hallucinations (ED) Additional Instructions: Follow up with your primary care provider. Return to the emergency department immediately if your symptoms worsen or if you develop any dizziness, shortness of breath, difficulty breathing, chest pain, blurry vision, loss of vision, nausea, vomiting, abdominal pain, fever, chills, back pain, or any other complaints. Prescriptions: No Action metformin 500 mg tablet 1 tab PO BID atorvastatin 10 mg tablet 10 mg PO DAILY montelukast 10 mg tablet 1 tab PO BEDTIME nicotine (polacrilex) 4 mg gum 1 ea PO Q2H PRN (Reason: Smoking Cessation) lisinopril 5 mg tablet 1 tab PO DAILY ferrous sulfate 325 mg (65 mg iron) Tablet 325 mg PO DAILY benztropine [Cogentin] 1 mg Tablet 1 mg PO BID fluoxetine 40 mg capsule 2 cap PO DAILY pantoprazole 40 mg tablet,delayed release (DR/EC) 1 tab PO DAILY@0630 mirtazapine 15 mg tablet 0.5 tab PO DAILY albuterol sulfate [Ventolin HFA] 90 mcg/actuation HFA aerosol inhaler 2 puff inhalation Q4-6H PRN (Reason: Shortness Of Breath Or Wheezing) fluphenazine HCl 5 mg tablet 1 tab PO BID chlorpromazine 50 mg tablet 1 tab PO TID PRN (Reason: Agitation) prazosin 1 mg Capsule 4 mg PO BEDTIME 30 Days Qty: 120 0RF Protocol: Hold for SBP< HOLD for SBP < : 90 trazodone 150 mg tablet 1 tab PO BEDTIME meclizine 25 mg tablet 25 mg PO DAILY PRN (Reason: dizziness) Qty: 6 0RF ketorolac 10 mg tablet 10 mg PO TID PRN (Reason: pain) 5 Days Qty: 10 0RF phenazopyridine [Pyridium] 100 mg tablet 200 mg PO TID 2 Days Qty: 6 0RF Interventions: Kinzers-Suicide Risk Severity Scale Last Done: 02/10/23 11:02 ED Discharge Assessment Last Done: 02/10/23 12:38 Discharge Date/Time: 02/10/23 12:40 Print Language: Malay
[2023-02-10 10:59] VITALS: BP 135/80; BP 136/80; PULSE 100; PULSE 87; RESP 16; TEMP 36.6; O2SAT 100; O2SAT 97; BMI 31.6
[2023-02-10 11:37] LABS: COVID-19 Test Negative (Negative); IDNOW Serial# BCCEAD1C
== END 2023-02-10 12:40 | disposition home or self-care (01) ==
PROVIDERS: Physician Assistant Medical; Emergency Provider Emergency Medicine; PCP Nurse Practitioner Family
DX: R44.0 Auditory hallucinations (principal); R45.851 Suicidal ideations; F32.A Depression, unspecified; F60.3 Borderline personality disorder; E11.9 Type 2 diabetes mellitus without complications; E78.5 Hyperlipidemia, unspecified; D64.9 Anemia, unspecified; F41.9 Anxiety disorder, unspecified; Z91.51 Personal history of suicidal behavior; Z91.52 Personal history of nonsuicidal self-harm; F43.10 Post-traumatic stress disorder, unspecified; F17.210 Nicotine dependence, cigarettes, uncomplicated; F12.90 Cannabis use, unspecified, uncomplicated; E66.9 Obesity, unspecified; Z68.43 Body mass index [BMI] 50.0-59.9, adult; Z20.822 Contact with and (suspected) exposure to COVID-19; Z79.84 Long term (current) use of oral hypoglycemic drugs; Z79.899 Other long term (current) drug therapy; Z79.02 Long term (current) use of antithrombotics/antiplatelets
CPT/HCPCS: 87635; 99284; S9485

== ENCOUNTER 2023-02-12 15:46 | Emergency (ER) | payer MEDICARE, MEDICAID, SELFPAY ==
[2023-02-12 15:57] VITALS: BP 142/82; BP 144/76; PULSE 105; PULSE 108; RESP 20; TEMP 36.9; O2SAT 97; O2SAT 98; BMI 39.7
--- NOTE | 2023-02-12 16:00 | MHC.EDTECH ---
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
--- NOTE | 2023-02-12 16:30 | ED_ITS ---
HPI - General Adult General Chief complaint: Overdose <Milton Hooks Last Filed: 02/13/23 00:47> Stated complaint: SEC 12 BY CPD,SI STATEMENTS,FROM [facility] <Milton Stevens - Last Filed: 02/13/23 00:47> Time Seen by Provider: 02/12/23 16:01 <Milton Stevens - Last Filed: 02/13/23 00:47> Source: patient, RN notes reviewed and old records reviewed <Milton Stevens - Last Filed: 02/13/23 00:47> Mode of arrival: EMS <Milton Hooks Filed: 02/13/23 00:47> Limitations: no limitations <Milton Hooks Filed: 02/13/23 00:47> History of Present Illness HPI narrative: 47-year-old female with past medical history significant for PTSD, bipolar disorder with depressive episodes presents for evaluation of ?suicidal ideation. Patient reports that she has been feeling suicidal for the last 3 days She states that ?a group meeting brought back old memories from childhood trauma. ? She states that she ?overdosed on ibuprofen. ? She states that she took ?a handful of pills. Patient endorses some mild upper abdominal discomfort No nausea or vomiting She reports that she does 1 hour prior to arrival She denies any other coingestion with exception of her prescribed medications early this morning <Milton Stevens - Last Filed: 02/13/23 00:47> Related Data Home medications: Home Medications Medication Instructions Recorded Confirmed atorvastatin 10 mg tablet 10 mg PO DAILY 05/29/21 02/12/23 metformin 500 mg tablet 1 tab PO BID 05/29/21 02/12/23 montelukast 10 mg tablet 1 tab PO BEDTIME 05/29/21 02/12/23 lisinopril 5 mg tablet 1 tab PO DAILY 07/30/22 02/12/23 nicotine (polacrilex) 4 mg gum 1 ea PO Q2H PRN Smoking Cessation 07/30/22 02/12/23 trazodone 150 mg tablet 1 tab PO BEDTIME 09/23/22 02/12/23 benztropine 1 mg tablet 1 mg PO BID 12/19/22 02/12/23 ferrous sulfate 325 mg (65 mg 325 mg PO DAILY 12/19/22 02/12/23 iron) tablet albuterol sulfate 90 mcg/actuation 2 puff inhalation Q4-6H PRN 12/24/22 02/12/23 aerosol inhaler (Ventolin HFA) Shortness Of Breath Or Wheezing chlorpromazine 50 mg tablet 1 tab PO TID PRN Agitation 12/24/22 02/12/23 fluoxetine 40 mg capsule 2 cap PO DAILY 12/24/22 02/12/23 fluphenazine HCl 5 mg tablet 1 tab PO BID 12/24/22 02/12/23 mirtazapine 15 mg tablet 0.5 tab PO DAILY 12/24/22 02/12/23 pantoprazole 40 mg tablet,delayed 1 tab PO DAILY@0630 12/24/22 02/12/23 release Previous Rx's Medication Instructions Recorded prazosin 1 mg capsule 4 mg PO BEDTIME 30 days #120 caps 10/18/21 ketorolac 10 mg tablet 10 mg PO TID PRN pain 5 days #10 01/24/23 tabs meclizine 25 mg tablet 25 mg PO DAILY PRN dizziness #6 01/24/23 tabs phenazopyridine 100 mg tablet 200 mg PO TID 2 days #6 tabs 01/24/23 (Pyridium) <Milton Stevens - Last Filed: 02/13/23 00:47> Allergies/adverse reactions: Allergies Allergy/AdvReac Type Severity Reaction Status Date / Time Fish Containing Products Allergy Severe ANAPHYLAXIS Verified 12/24/22 11:47 codeine [Codeine] Allergy Intermediate RASH Verified 12/24/22 11:47 Penicillins Allergy Intermediate RASH Verified 12/24/22 11:47 prednisone [Prednisone] Allergy Intermediate RASH Verified 12/24/22 11:47 Sulfa (Sulfonamide Allergy Intermediate RASH Verified 12/24/22 11:47 Antibiotics) [Sulfa (Sulfonamides)] azithromycin [AZITHROMYCIN] AdvReac Severe RASH Verified 12/24/22 11:47 ziprasidone [From Geodon] AdvReac Intermediate dysuria, Verified 12/24/22 11:47 rash <Milton Stevens - Last Filed: 02/13/23 00:47> Review of Systems Constitutional: Constitutional: Reports as per HPI, Denies chills, Denies fati shayy, Denies fever(s) and Denies headache(s) <Milton OPeter Filed: 02/13/23 00:47> ENT: Denies headache(s) <Milton O Filed: 02/13/23 00:47> Cardiovascular: Cardiovascular: Denies chest pain and Denies dyspnea <Milton O Last Filed: 02/13/23 00:47> Respiratory: Respiratory: Denies cough and Denies dyspnea <Milton O Last Filed: 02/13/23 00:47> Gastrointestinal: Gastrointestinal: Reports abdominal pain, Denies constipation and Denies vomiting <Milton O Filed: 02/13/23 00:47> Genitourinary: Genitourinary: Denies dysuria <Milton O Filed: 02/13/23 00:47> Neurologic: Denies headache(s) and Denies focal weakness <Milton O Last Filed: 02/13/23 00:47> Psychiatric: Psychiatric: Reports depression and Reports suicidal ideation <Milton O Filed: 02/13/23 00:47> Endocrine: Endocrine: Denies fatigue <Milton O Last Filed: 02/13/23 00:47> [facility] Past Medical History Medical History: Medical History Acetaminophen overdose Borderline personality disorder Bronchitis Depression Diabetes type 2, controlled Full body hives GERD (gastroesophageal reflux disease) History of attempted suicide History of non-suicidal self-harm Hyperlipidemia Hypomagnesemia Major depression MDD (major depressive disorder), recurrent episode, severe Mood disorder Overdose PTSD (post-traumatic stress disorder) Suicide attempt Suicide attempt by acetaminophen overdose <Milton O Last Filed: 02/13/23 00:47> Social History Social History: Social History Household Members: Other Household Members Other:: half-way Housing: Other Housing Other:: half-way Do you presently have visiting nurse or other home services: No Unable to assess alcohol history related to: Unknown Alcohol intake: never Patient Tobacco Use Status: Current everyday Tobacco user Tobacco use type: Cigarette Cigarette Packs Per Day: 1 Cigarettes Per Day: 16 Years Smoked: 20 Smoked in Last 30 Days: Yes e-Cigarette/Vaping Use: Never Used Use of substances other than those prescribed or required for medical reasons: Yes Substance Use Type: Marijuana Advance Directives: No Advance Directives Information Provided: No service: No Current occupational status: unemployed and disabled Sexual orientation: Don't Know <Milton Stevens - Last Filed: 02/13/23 00:47> Physical Exam ED Vital Signs: Vital Signs - 24 hr 02/12/23 15:57 02/12/23 17:54 02/13/23 06:14 Temperature 98.4 F 98.2 F 98.3 F Pulse Rate 105 H 93 77 Respiratory Rate 20 16 17 Blood Pressure 144/76 H 129/85 135/63 Pulse Oximetry 98 98 95 Oxygen Delivery Method Room Air Room Air Room Air BMI result Body Mass Index 39.7 <Milton Stevens - Last Filed: 02/13/23 00:47> Vital Signs - 24 hr 02/12/23 15:57 02/12/23 17:54 02/13/23 06:14 Temperature 98.4 F 98.2 F 98.3 F Pulse Rate 105 H 93 77 Respiratory Rate 20 16 17 Blood Pressure 144/76 H 129/85 135/63 Pulse Oximetry 98 98 95 Oxygen Delivery Method Room Air Room Air Room Air BMI result Body Mass Index 39.7 <Sy Allison MD - Last Filed: 02/13/23 09:00> Const General: healthy appearing, comfortable, no acute distress, alert and awake <Milton Stevens - Last Filed: 02/13/23 00:47> Nutritional Appearance: well nourished <Milton Stevens - Last Filed: 02/13/23 00:47> Orientation/consciousness: patient oriented x3 <Milton Stevens - Last Filed: 02/13/23 00:47> HENMT Head: Yes normocephalic and Yes atraumatic <Milton Stevens - Last Filed: 02/13/23 00:47> Throat: Yes posterior oropharynx normal <Milton Stevens - Last Filed: 02/13/23 00:47> Eyes Eyelids: Yes eyelids normal <Milton Stevens - Last Filed: 02/13/23 00:47> Conjunctivae: conjunctivae normal <Milton [place] - Last Filed: 02/13/23 00:47> Sclerae: sclerae normal <Milton [place] - Last Filed: 02/13/23 00:47> Corneas: corneas normal <M[place] - Last Filed: 02/13/23 00:47> Pupils: Equal, round and reactive pupils present <M[place] - Last Filed: 02/13/23 00:47> EOM: EOMs intact bilaterally <Milton O Last Filed: 02/13/23 00:47> Neck Neck: Yes full ROM <Milton O Last Filed: 02/13/23 00:47> Resp Effort & Inspection: normal respiratory effort, able to speak in complete sentences, no audible wheezes and not labored <Milton O Filed: 02/13/23 00:47> Auscultation: clear to auscultation bilaterally <Milton OPeter - Last Filed: 02/13/23 00:47> Cardio Rate: regular rate <Milton O Last Filed: 02/13/23 00:47> Rhythm: regular rhythm <Milton O Last Filed: 02/13/23 00:47> GI Inspection: No distended <Milton OPeter Filed: 02/13/23 00:47> Palpation (GI): Soft to palpation, not firm, nontender, no guarding and not rigid <Milton [place] - Last Filed: 02/13/23 00:47> Auscultation: normoactive bowel sounds <Milton OPeter - Last Filed: 02/13/23 00:47> Skin General skin exam: no rashes or lesions noted and elasticity normal <Milton O Last Filed: 02/13/23 00:47> Neuro General: patient oriented x3 <Milton OEpter - Last Filed: 02/13/23 00:47> Cranial nerves: Yes Equal, round and reactive pupils present and Yes Bilaterally intact EOM present <Milton OPeter - Last Filed: 02/13/23 00:47> Cognition (Neuro): normal cognition <Milton Hilda - Last Filed: 02/13/23 00:47> Extrem Other: Moving all extremities well without any obvious deformities <Milton ElliotPeter - Last Filed: 02/13/23 00:47> Course Reevaluation(s) Reevaluation #1: Patient seen by crisis, given the reported overdose on ibuprofen, the patient will have a psychiatry consult in the morning. <Milton Stevens - Last Filed: 02/13/23 00:47> Time: 00:46 <Milton Stevens - Last Filed: 02/13/23 00:47> Reevaluation #2: Patient is awake, alert, oriented x3, no SI, no HI, patient is presenting with her typical presentation was seen and evaluated by care team and to be discharged. <Sy Allison MD - Last Filed: 02/13/23 09:00> Time: 09:00 <Sy Allison MD - Last Filed: 02/13/23 09:00> Medical Decision Making Medical Decision Making MDM Narrative: 47 year old female presents for evaluation of suicidal ideation. Patient reports that she was recently remembering childhood trauma and it is making her suicidal for the last 3 days. She reports taking a handful of ibuprofen and has upset stomach. She denies any other medication except her prescribed meds. She will require medical clearance and then a care team evaluation <Milton Stevens - Last Filed: 02/13/23 00:47> Differential Diagnosis Depression Suicidal ideation NSAID abuse PTSD <Milton Stevens - Last Filed: 02/13/23 00:47> Lab Data Result Diagrams: 02/12/23 16:57 02/12/23 16:57 <Milton Stevens - Last Filed: 02/13/23 00:47> Labs: Lab Results 02/12/23 02/12/23 02/12/23 Range/Units 16:49 16:49 16:57 WBC 6.1 (4.8-10.8) X10*3/uL RBC 3.88 L (4.20-5.50) X10*6/uL Hgb 10.8 L (12.0-16.0) g/dl Hct 34.5 L (37.0-47.0) % MCV 88.9 (80.0-98.0) fL MCH 27.8 (27.0-33.0) pg MCHC 31.3 (31.0-35.0) g/dl RDW 15.2 (11.0-16.0) % Plt Count 267 (160-400) X10*3/uL MPV 9.7 (9.4-12.3) fL Immature Gran % (Auto) 0.7 H (0.0-0.4) % Neut % (Auto) 64.1 (45-73) % Lymph % (Auto) 22.1 (20-40) % Clayton % (Auto) 8.2 (2-11) % Eos % (Auto) 4.4 H (0-4) % Baso % (Auto) 0.5 (0-2) % Lymph # (Auto) 1.4 (1.2-4.9) X10*3/uL Clayton # (Auto) 0.5 (0.1-1.2) X10*3/uL Eos # (Auto) 0.3 (0.0-0.4) X10*3/uL Baso # (Auto) 0.0 (0.0-0.2) X10*3/uL Abs Immat Gran (auto) 0.04 H (0.00-0.03) X10*3/uL Absolute Neuts (auto) 3.9 (2.0-8.3) x10*3/uL Absolute Nucleated RBC 0.000 (0.0-0.012) X10*3/uL Nucleated RBC % (auto) 0.0 (0.0-0.2) /100WBC Sodium (135-145) mmol/L Potassium (3.3-5.1) mmol/L Chloride (96-108) mmol/L Carbon Dioxide (22-29) mmol/L Anion Gap (12-20) BUN (9-16) mg/dL Creatinine (0.5-1.4) mg/dL Estim Creat Clear Calc Estimated GFR Random Glucose (60-115) mg/dL Calcium (8.4-10.2) mg/dL Total Bilirubin (0.0-1.0) mg/dL AST (5-31) U/L ALT (0-31) U/L Alkaline Phosphatase (39-117) U/L Total Protein (6.5-8.0) g/dL Albumin (3.5-5.0) g/dL Lipase (8-78) U/L Urine Test NEGATIVE (NEGATIVE) Salicylates (15-30) mg/dL Urine Opiates Screen Not Detected (Not Detect) Urine Fentanyl Screen Not Detected (Not Detect) Acetaminophen (<30) mcg/mL Ur Barbiturates Screen Not Detected (Not Detect) Ur Phencyclidine Scrn Not Detected (Not Detect) Ur Amphetamines Screen Not Detected (Not Detect) U Benzodiazepines Scrn Not Detected (Not Detect) Urine Cocaine Screen Not Detected (Not Detect) U Marijuana (THC) Screen Not Detected (Not Detect) Ethyl Alcohol mg/dL COVID-19 (NICK) (Negative) COVID-19 Clin Com 02/12/23 02/13/23 Range/Units 16:57 06:39 WBC (4.8-10.8) X10*3/uL RBC (4.20-5.50) X10*6/uL Hgb (12.0-16.0) g/dl Hct (37.0-47.0) % MCV (80.0-98.0) fL MCH (27.0-33.0) pg MCHC (31.0-35.0) g/dl RDW (11.0-16.0) % Plt Count (160-400) X10*3/uL MPV (9.4-12.3) fL Immature Gran % (Auto) (0.0-0.4) % Neut % (Auto) (45-73) % Lymph % (Auto) (20-40) % Clayton % (Auto) (2-11) % Eos % (Auto) (0-4) % Baso % (Auto) (0-2) % Lymph # (Auto) (1.2-4.9) X10*3/uL Clayton # (Auto) (0.1-1.2) X10*3/uL Eos # (Auto) (0.0-0.4) X10*3/uL Baso # (Auto) (0.0-0.2) X10*3/uL Abs Immat Gran (auto) (0.00-0.03) X10*3/uL Absolute Neuts (auto) (2.0-8.3) x10*3/uL Absolute Nucleated RBC (0.0-0.012) X10*3/uL Nucleated RBC % (auto) (0.0-0.2) /100WBC Sodium 141 (135-145) mmol/L Potassium 4.0 (3.3-5.1) mmol/L Chloride 108 (96-108) mmol/L Carbon Dioxide 23 (22-29) mmol/L Anion Gap 14 (12-20) BUN 8 L (9-16) mg/dL Creatinine 0.82 (0.5-1.4) mg/dL Estim Creat Clear Calc 102.3 Estimated GFR > 60 Random Glucose 100 (60-115) mg/dL Calcium 8.8 (8.4-10.2) mg/dL Total Bilirubin 0.2 (0.0-1.0) mg/dL AST 18 (5-31) U/L ALT 18 (0-31) U/L Alkaline Phosphatase 102 (39-117) U/L Total Protein 6.4 L (6.5-8.0) g/dL Albumin 4.1 (3.5-5.0) g/dL Lipase 59 (8-78) U/L Urine Test (NEGATIVE) Salicylates < 5.0 L (15-30) mg/dL Urine Opiates Screen (Not Detect) Urine Fentanyl Screen (Not Detect) Acetaminophen < 17 (<30) mcg/mL Ur Barbiturates Screen (Not Detect) Ur Phencyclidine Scrn (Not Detect) Ur Amphetamines Screen (Not Detect) U Benzodiazepines Scrn (Not Detect) Urine Cocaine Screen (Not Detect) U Marijuana (THC) Screen (Not Detect) Ethyl Alcohol < 10 mg/dL COVID-19 (NICK) Negative (Negative) COVID-19 Clin Com See Note <Milton Stevens - Last Filed: 02/13/23 00:47> Lab Results 02/12/23 02/12/23 02/12/23 Range/Units 16:49 16:49 16:57 WBC 6.1 (4.8-10.8) X10*3/uL RBC 3.88 L (4.20-5.50) X10*6/uL Hgb 10.8 L (12.0-16.0) g/dl Hct 34.5 L (37.0-47.0) % MCV 88.9 (80.0-98.0) fL MCH 27.8 (27.0-33.0) pg MCHC 31.3 (31.0-35.0) g/dl RDW 15.2 (11.0-16.0) % Plt Count 267 (160-400) X10*3/uL MPV 9.7 (9.4-12.3) fL Immature Gran % (Auto) 0.7 H (0.0-0.4) % Neut % (Auto) 64.1 (45-73) % Lymph % (Auto) 22.1 (20-40) % Clayton % (Auto) 8.2 (2-11) % Eos % (Auto) 4.4 H (0-4) % Baso % (Auto) 0.5 (0-2) % Lymph # (Auto) 1.4 (1.2-4.9) X10*3/uL Clayton # (Auto) 0.5 (0.1-1.2) X10*3/uL Eos # (Auto) 0.3 (0.0-0.4) X10*3/uL Baso # (Auto) 0.0 (0.0-0.2) X10*3/uL Abs Immat Gran (auto) 0.04 H (0.00-0.03) X10*3/uL Absolute Neuts (auto) 3.9 (2.0-8.3) x10*3/uL Absolute Nucleated RBC 0.000 (0.0-0.012) X10*3/uL Nucleated RBC % (auto) 0.0 (0.0-0.2) /100WBC Sodium (135-145) mmol/L Potassium (3.3-5.1) mmol/L Chloride (96-108) mmol/L Carbon Dioxide (22-29) mmol/L Anion Gap (12-20) BUN (9-16) mg/dL Creatinine (0.5-1.4) mg/dL Estim Creat Clear Calc Estimated GFR Random Glucose (60-115) mg/dL Calcium (8.4-10.2) mg/dL Total Bilirubin (0.0-1.0) mg/dL AST (5-31) U/L ALT (0-31) U/L Alkaline Phosphatase (39-117) U/L Total Protein (6.5-8.0) g/dL Albumin (3.5-5.0) g/dL Lipase (8-78) U/L Urine Test NEGATIVE (NEGATIVE) Salicylates (15-30) mg/dL Urine Opiates Screen Not Detected (Not Detect) Urine Fentanyl Screen Not Detected (Not Detect) Acetaminophen (<30) mcg/mL Ur Barbiturates Screen Not Detected (Not Detect) Ur Phencyclidine Scrn Not Detected (Not Detect) Ur Amphetamines Screen Not Detected (Not Detect) U Benzodiazepines Scrn Not Detected (Not Detect) Urine Cocaine Screen Not Detected (Not Detect) U Marijuana (THC) Screen Not Detected (Not Detect) Ethyl Alcohol mg/dL COVID-19 (NICK) (Negative) COVID-19 Clin Com 02/12/23 02/13/23 Range/Units 16:57 06:39 WBC (4.8-10.8) X10*3/uL RBC (4.20-5.50) X10*6/uL Hgb (12.0-16.0) g/dl Hct (37.0-47.0) % MCV (80.0-98.0) fL MCH (27.0-33.0) pg MCHC (31.0-35.0) g/dl RDW (11.0-16.0) % Plt Count (160-400) X10*3/uL MPV (9.4-12.3) fL Immature Gran % (Auto) (0.0-0.4) % Neut % (Auto) (45-73) % Lymph % (Auto) (20-40) % Clayton % (Auto) (2-11) % Eos % (Auto) (0-4) % Baso % (Auto) (0-2) % Lymph # (Auto) (1.2-4.9) X10*3/uL Clayton # (Auto) (0.1-1.2) X10*3/uL Eos # (Auto) (0.0-0.4) X10*3/uL Baso # (Auto) (0.0-0.2) X10*3/uL Abs Immat Gran (auto) (0.00-0.03) X10*3/uL Absolute Neuts (auto) (2.0-8.3) x10*3/uL Absolute Nucleated RBC (0.0-0.012) X10*3/uL Nucleated RBC % (auto) (0.0-0.2) /100WBC Sodium 141 (135-145) mmol/L Potassium 4.0 (3.3-5.1) mmol/L Chloride 108 (96-108) mmol/L Carbon Dioxide 23 (22-29) mmol/L Anion Gap 14 (12-20) BUN 8 L (9-16) mg/dL Creatinine 0.82 (0.5-1.4) mg/dL Estim Creat Clear Calc 102.3 Estimated GFR > 60 Random Glucose 100 (60-115) mg/dL Calcium 8.8 (8.4-10.2) mg/dL Total Bilirubin 0.2 (0.0-1.0) mg/dL AST 18 (5-31) U/L ALT 18 (0-31) U/L Alkaline Phosphatase 102 (39-117) U/L Total Protein 6.4 L (6.5-8.0) g/dL Albumin 4.1 (3.5-5.0) g/dL Lipase 59 (8-78) U/L Urine Test (NEGATIVE) Salicylates < 5.0 L (15-30) mg/dL Urine Opiates Screen (Not Detect) Urine Fentanyl Screen (Not Detect) Acetaminophen < 17 (<30) mcg/mL Ur Barbiturates Screen (Not Detect) Ur Phencyclidine Scrn (Not Detect) Ur Amphetamines Screen (Not Detect) U Benzodiazepines Scrn (Not Detect) Urine Cocaine Screen (Not Detect) U Marijuana (THC) Screen (Not Detect) Ethyl Alcohol < 10 mg/dL COVID-19 (NICK) Negative (Negative) COVID-19 Clin Com See Note <Sy Allison MD - Last Filed: 02/13/23 09:00> Discharge Plan Discharge Clinical Impression: Suicidal ideation, NSAID overdose <Milton Stevens - Last Filed: 02/13/23 00:47> Patient Disposition: Home, Self-Care <Milton Stevens - Last Filed: 02/13/23 00:47> Instructions: Help Prevent Suicide (ED) <Milton tSevens - Last Filed: 02/13/23 00:47> Prescriptions: No Action metformin 500 mg tablet 1 tab PO BID atorvastatin 10 mg tablet 10 mg PO DAILY montelukast 10 mg tablet 1 tab PO BEDTIME nicotine (polacrilex) 4 mg gum 1 ea PO Q2H PRN (Reason: Smoking Cessation) lisinopril 5 mg tablet 1 tab PO DAILY ferrous sulfate 325 mg (65 mg iron) Tablet 325 mg PO DAILY benztropine [Cogentin] 1 mg Tablet 1 mg PO BID fluoxetine 40 mg capsule 2 cap PO DAILY pantoprazole 40 mg tablet,delayed release (DR/EC) 1 tab PO DAILY@0630 mirtazapine 15 mg tablet 0.5 tab PO DAILY albuterol sulfate [Ventolin HFA] 90 mcg/actuation HFA aerosol inhaler 2 puff inhalation Q4-6H PRN (Reason: Shortness Of Breath Or Wheezing) fluphenazine HCl 5 mg tablet 1 tab PO BID chlorpromazine 50 mg tablet 1 tab PO TID PRN (Reason: Agitation) prazosin 1 mg Capsule 4 mg PO BEDTIME 30 Days Qty: 120 0RF Protocol: Hold for SBP< HOLD for SBP < : 90 trazodone 150 mg tablet 1 tab PO BEDTIME meclizine 25 mg tablet 25 mg PO DAILY PRN (Reason: dizziness) Qty: 6 0RF ketorolac 10 mg tablet 10 mg PO TID PRN (Reason: pain) 5 Days Qty: 10 0RF phenazopyridine [Pyridium] 100 mg tablet 200 mg PO TID 2 Days Qty: 6 0RF <Milton Stevens - Last Filed: 02/13/23 00:47>
--- NOTE | 2023-02-12 16:36 | ECG_ITS ---
Test Reason : OVERDOSED Blood Pressure : / mmHG Vent. Rate : 092 BPM Atrial Rate : 092 BPM P-R Int : 178 ms QRS Dur : 086 ms QT Int : 364 ms P-R-T Axes : 052 039 055 degrees QTc Int : 450 ms Normal sinus rhythm Normal ECG When compared with ECG of 23-JAN-2023 20:46, No significant change was found Referred By: Milton Stevens Electronically Signed By:DONALD HOOKER MD
[2023-02-12 17:03] LABS: MANUAL DIFF FLAG NO
[2023-02-12 17:07] LABS: Basophils Percent Auto 0.5 % (0-2); Eosinophils Absolute Auto 0.3 X10*3/uL (0.0-0.4); Eosinophils Percent Auto 4.4 % (0-4); Hematocrit 34.5 % (37.0-47.0); Hemoglobin 10.8 g/dl (12.0-16.0); Imm Gran Abs Auto 0.04 X10*3/uL (0.00-0.03); Imm Gran Pct Auto 0.7 % (0.0-0.4); Lymphocytes Absolute Auto 1.4 X10*3/uL (1.2-4.9); Lymphocytes Percent Auto 22.1 % (20-40); Mean Corpuscular HGB Conc 31.3 g/dl (31.0-35.0); Mean Corpuscular Hemoglobin 27.8 pg (27.0-33.0); Mean Corpuscular Volume 88.9 fL (80.0-98.0); Mean Platelet Volume 9.7 fL (9.4-12.3); Monocytes Absolute Auto 0.5 X10*3/uL (0.1-1.2); Monocytes Percent Auto 8.2 % (2-11); Neutrophils Absolute Auto 3.9 x10*3/uL (2.0-8.3); Neutrophils Percent Auto 64.1 % (45-73); Platelet Count 267 X10*3/uL (160-400); Red Blood Count 3.88 X10*6/uL (4.20-5.50); Red Cell Distribution Width 15.2 % (11.0-16.0); White Blood Count 6.1 X10*3/uL (4.8-10.8)
[2023-02-12 17:09] LABS: UPreg QC Valid YES; Urine Pregnancy NEGATIVE (NEGATIVE)
[2023-02-12 17:18] LABS: Amphetamine Screen Urine Not Detected (Not Detect); Barbiturates, Urine Not Detected (Not Detect); Benzodiazepines Screen Urine Not Detected (Not Detect); Cannabinoid Screen Urine Not Detected (Not Detect); Cocaine Screen Urine Not Detected (Not Detect); Fentanyl, urine Not Detected (Not Detect); Opiate Screen Urine Not Detected (Not Detect); Phencyclidine Screen Urine Not Detected (Not Detect)
[2023-02-12 17:25] LABS: Acetaminophen LAB < 17 mcg/mL (<30); Alanine Aminotransferase 18 U/L (0-31); Albumin Level 4.1 g/dL (3.5-5.0); Alkaline Phosphatase 102 U/L (39-117); Anion Gap 14 (12-20); Aspartate Amino Transferase 18 U/L (5-31); Bilirubin Total 0.2 mg/dL (0.0-1.0); Blood Urea Nitrogen 8 mg/dL (9-16); Calcium 8.8 mg/dL (8.4-10.2); Carbon Dioxide 23 mmol/L (22-29); Chloride 108 mmol/L (96-108); Creatinine Clr Calc Pharmacy 102.3; Estimated Glomerular Filt Rate > 60; Ethanol < 10 mg/dL; Glucose Random 100 mg/dL (60-115); Lipase 59 U/L (8-78); Salicylate < 5.0 mg/dL (15-30); Sodium 141 mmol/L (135-145); Total Protein 6.4 g/dL (6.5-8.0)
--- NOTE | 2023-02-12 17:39 | PC.NURSE ---
pt alert/orinted. 1:[address], pt changed over. pt reporting SI and took a handful of ibuprofen as a suicide attempt. will cont to demetrio
[2023-02-12 17:54] VITALS: BP 129/85; PULSE 93; RESP 16; TEMP 36.8; O2SAT 98
--- NOTE | 2023-02-13 05:41 | PC.NURSE ---
Patient slept through the night, no distress observed/reported, behavior non concerning, assessed by care team, pending disposition awaiting psychiatrist opinion for discharge, med rec completed/pending provider's approval, VSS, will continue to monitor.
[2023-02-13 06:14] VITALS: BP 135/63; PULSE 77; RESP 17; TEMP 36.8; O2SAT 95
[2023-02-13 06:56] LABS: COVID-19 Test Negative (Negative); IDNOW Serial# BCCEAD1C
== END 2023-02-13 09:11 | disposition home or self-care (01) ==
PROVIDERS: Physician Assistant; Emergency Provider Emergency Medicine
DX: T39.312A Poisoning by propionic acid derivatives, intentional self-harm, initial encounter (principal); Y92.9 Unspecified place or not applicable; F33.1 Major depressive disorder, recurrent, moderate; R45.851 Suicidal ideations; F17.210 Nicotine dependence, cigarettes, uncomplicated; Z20.822 Contact with and (suspected) exposure to COVID-19; Z20.828 Contact with and (suspected) exposure to other viral communicable diseases; Z71.6 Tobacco abuse counseling; Z79.899 Other long term (current) drug therapy
CPT/HCPCS: 36415; 80053; 80143; 80179; 80307; 81025; 83690; 85025; 87635; 93005; 99285; S9485

== ENCOUNTER 2023-02-17 12:57 | Emergency (ER) | payer MEDICARE, MEDICAID, SELFPAY ==
[2023-02-17 13:00] VITALS: BP 140/90; BP 149/89; PULSE 124; PULSE 98; RESP 18; TEMP 36.5; O2SAT 96; O2SAT 99; BMI 37.8
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
[2023-02-17] MEDS: LORazepam 1 MG TABLET PO (14:34)
[2023-02-17 14:54] LABS: Amphetamine Screen Urine Not Detected (Not Detect); Barbiturates, Urine Not Detected (Not Detect); Benzodiazepines Screen Urine Not Detected (Not Detect); Cannabinoid Screen Urine Not Detected (Not Detect); Cocaine Screen Urine Not Detected (Not Detect); Fentanyl, urine Not Detected (Not Detect); Opiate Screen Urine Not Detected (Not Detect); Phencyclidine Screen Urine Not Detected (Not Detect)
--- NOTE | 2023-02-17 16:14 | PC.NURSE ---
Applied Nystatin powder to LR abd fold. Pt is slightly reddened. Enc to dry skin thoroughly after shower.
--- NOTE | 2023-02-17 16:15 | PC.NURSE ---
Pt reporting she feels better and would like to be discharged home. Pt denies VH. Reporting voices are manageable. Denies SI, HI SH.
[2023-02-17 16:39] LABS: MANUAL DIFF FLAG NO
[2023-02-17 16:40] LABS: Basophils Percent Auto 0.4 % (0-2); Eosinophils Absolute Auto 0.3 X10*3/uL (0.0-0.4); Hematocrit 35.8 % (37.0-47.0); Hemoglobin 11.1 g/dl (12.0-16.0); Imm Gran Abs Auto 0.05 X10*3/uL (0.00-0.03); Imm Gran Pct Auto 0.6 % (0.0-0.4); Lymphocytes Absolute Auto 1.5 X10*3/uL (1.2-4.9); Lymphocytes Percent Auto 18.7 % (20-40); Mean Corpuscular Hemoglobin 27.5 pg (27.0-33.0); Mean Corpuscular Volume 88.8 fL (80.0-98.0); Monocytes Absolute Auto 0.5 X10*3/uL (0.1-1.2); Neutrophils Absolute Auto 5.8 x10*3/uL (2.0-8.3); Neutrophils Percent Auto 70.3 % (45-73); Platelet Count 251 X10*3/uL (160-400); Red Blood Count 4.03 X10*6/uL (4.20-5.50); Red Cell Distribution Width 14.8 % (11.0-16.0); White Blood Count 8.2 X10*3/uL (4.8-10.8)
[2023-02-17] MEDS: Nystatin Powder 15 GM BOTTLE 1 APPL TOPICAL (16:55)
[2023-02-17 17:35] LABS: COVID-19 Test Negative (Negative); IDNOW Serial# 08D9AD1C
--- NOTE | 2023-02-17 20:21 | MHC.CARE ---
Pt came into [facility] ED POD due to having a panic attack. She immediately felt better and wanted to return home. ran multiple blood draws and agreed to letting the pt return to her assisted without a full assessment. T/W checked in with the pt and she explained that she had a panic attack and that she called 911 and wanted to be brought here. Once here she felt better and wanted to return to her assisted. Pt denies SI/HI/AVH and does not want to hurt herself at this time. T/W consulted with on-call [employer] liqu[employer] sales supervisor ANGELA Black and ED provider TIMI Bentley who both agree with letting the pt return to her assisted.
[2023-02-17 20:36] LABS: Acetaminophen LAB < 17 mcg/mL (<30); Alanine Aminotransferase 17 U/L (0-31); Albumin Level 4.2 g/dL (3.5-5.0); Alkaline Phosphatase 100 U/L (39-117); Anion Gap 14 (12-20); Aspartate Amino Transferase 17 U/L (5-31); Bilirubin Total 0.2 mg/dL (0.0-1.0); Blood Urea Nitrogen 11 mg/dL (9-16); Calcium 9.4 mg/dL (8.4-10.2); Carbon Dioxide 25 mmol/L (22-29); Chloride 103 mmol/L (96-108); Creatinine Clr Calc Pharmacy 110.2; Estimated Glomerular Filt Rate > 60; Ethanol < 10 mg/dL; Glucose Random 125 mg/dL (60-115); Potassium 3.8 mmol/L (3.3-5.1); Salicylate < 5.0 mg/dL (15-30); Sodium 138 mmol/L (135-145); Total Protein 6.5 g/dL (6.5-8.0)
== END 2023-02-17 21:16 | disposition home or self-care (01) ==
PROVIDERS: Physician Assistant; Emergency Provider Emergency Medicine
DX: B37.2 Candidiasis of skin and nail (principal); F31.9 Bipolar disorder, unspecified; R44.0 Auditory hallucinations; R45.851 Suicidal ideations; F32.A Depression, unspecified; F60.3 Borderline personality disorder; F43.10 Post-traumatic stress disorder, unspecified; F23 Brief psychotic disorder; F41.9 Anxiety disorder, unspecified; E11.9 Type 2 diabetes mellitus without complications; E78.5 Hyperlipidemia, unspecified; D64.9 Anemia, unspecified; F17.210 Nicotine dependence, cigarettes, uncomplicated; F12.90 Cannabis use, unspecified, uncomplicated; E66.9 Obesity, unspecified; Z91.52 Personal history of nonsuicidal self-harm; Z68.43 Body mass index [BMI] 50.0-59.9, adult; Z91.51 Personal history of suicidal behavior; Z79.84 Long term (current) use of oral hypoglycemic drugs; Z79.899 Other long term (current) drug therapy; Z79.02 Long term (current) use of antithrombotics/antiplatelets; Z20.822 Contact with and (suspected) exposure to COVID-19
CPT/HCPCS: 36415; 80048; 80053; 80076; 80143; 80179; 80307; 83735; 85025; 87635; 99284

== ENCOUNTER 2023-02-18 14:01 | Emergency (ER) | payer MEDICARE, MEDICAID, SELFPAY ==
--- NOTE | 2023-02-18 14:18 | ED.GENADULT ---
HPI - General Adult General Chief complaint: Psychiatric Symptoms <Alicja Wilcox NP - Last Filed: 02/18/23 16:48> Stated complaint: CRISIS,SI SINCE WOKE UP,FROM [facility] <Alicja Wilcox NP - Last Filed: 02/18/23 16:48> Time Seen by Provider: 02/18/23 14:16 <Alicja Wilcox NP - Last Filed: 02/18/23 16:48> Source: patient, EMS, RN notes reviewed and old records reviewed <Alicja Wilcox NP - Last Filed: 02/18/23 16:48> Mode of arrival: EMS <JUN Ho Last Filed: 02/18/23 16:48> Limitations: no limitations <Alicja Wilcox NP - Last Filed: 02/18/23 16:48> History of Present Illness HPI narrative: Patient is a 47-year-old female with significant psychiatric history of prior SI attempts, PTSD, borderline personality, MDD, HLD, GERD and T2DM [facility] with suicidal ideation and auditory hallucinations since this morning. She reports hearing voices telling her to kill herself this morning, then reports suicidal thoughts this afternoon with plan to overdose on Tylenol and also to break dishes and use these to cut herself with. She denies any homicidal ideation. She denies any physical complaints. Patient was seen in the ED yesterday for similar complaint. She denies any ingestion of medications today. She states that she left yesterday due to nicotine craving. <Alicja Wilcox NP - Last Filed: 02/18/23 16:48> MD complaint: suicidal ideation <Alicja Wilcox NP - Last Filed: 02/18/23 16:48> Related Data Home medications: Home Medications Medication Instructions Recorded Confirmed atorvastatin 10 mg tablet 10 mg PO DAILY 05/29/21 02/12/23 metformin 500 mg tablet 1 tab PO BID 05/29/21 02/12/23 montelukast 10 mg tablet 1 tab PO BEDTIME 05/29/21 02/12/23 lisinopril 5 mg tablet 1 tab PO DAILY 07/30/22 02/12/23 nicotine (polacrilex) 4 mg gum 1 ea PO Q2H PRN Smoking Cessation 07/30/22 02/12/23 trazodone 150 mg tablet 1 tab PO BEDTIME 09/23/22 02/12/23 benztropine 1 mg tablet 1 mg PO BID 12/19/22 02/12/23 ferrous sulfate 325 mg (65 mg 325 mg PO DAILY 12/19/22 02/12/23 iron) tablet albuterol sulfate 90 mcg/actuation 2 puff inhalation Q4-6H PRN 12/24/22 02/12/23 aerosol inhaler (Ventolin HFA) Shortness Of Breath Or Wheezing chlorpromazine 50 mg tablet 1 tab PO TID PRN Agitation 12/24/22 02/12/23 fluoxetine 40 mg capsule 2 cap PO DAILY 12/24/22 02/12/23 fluphenazine HCl 5 mg tablet 1 tab PO BID 12/24/22 02/12/23 mirtazapine 15 mg tablet 0.5 tab PO DAILY 12/24/22 02/12/23 pantoprazole 40 mg tablet,delayed 1 tab PO DAILY@0630 12/24/22 02/12/23 release Previous Rx's Medication Instructions Recorded prazosin 1 mg capsule 4 mg PO BEDTIME 30 days #120 caps 10/18/21 ketorolac 10 mg tablet 10 mg PO TID PRN pain 5 days #10 01/24/23 tabs meclizine 25 mg tablet 25 mg PO DAILY PRN dizziness #6 01/24/23 tabs phenazopyridine 100 mg tablet 200 mg PO TID 2 days #6 tabs 01/24/23 (Pyridium) nystatin 100,000 unit/gram topical 1 appl topical DAILY #15 grams 02/17/23 powder <Alicja Wilcox NP - Last Filed: 02/18/23 16:48> Allergies/adverse reactions: Allergies Allergy/AdvReac Type Severity Reaction Status Date / Time Fish Containing Products Allergy Severe ANAPHYLAXIS Verified 02/17/23 13:41 codeine [Codeine] Allergy Intermediate RASH Verified 02/17/23 13:41 Penicillins Allergy Intermediate RASH Verified 02/17/23 13:41 prednisone [Prednisone] Allergy Intermediate RASH Verified 02/17/23 13:41 Sulfa (Sulfonamide Allergy Intermediate RASH Verified 02/17/23 13:41 Antibiotics) [Sulfa (Sulfonamides)] azithromycin [AZITHROMYCIN] AdvReac Severe RASH Verified 02/17/23 13:41 ziprasidone [From Geodon] AdvReac Intermediate dysuria, Verified 02/17/23 13:41 rash <Alicja Wilcox NP - Last Filed: 02/18/23 16:48> Review of Systems Review of Systems: As per HPI <Alicja Wilcox NP - Last Filed: 02/18/23 16:48> Yes all other systems are reviewed and are negative <Alicja Wilcox NP - Last Filed: 02/18/23 16:48> Constitutional: Constitutional: Reports as per HPI <Alicja Wilcox NP - Last Filed: 02/18/23 16:48> Neurologic: Denies Sensory deficit (Neuro) <Alicja Wilcox NP - Last Filed: 02/18/23 16:48> PMFSH Past Medical History Medical History: Medical History Acetaminophen overdose Borderline personality disorder Bronchitis Depression Diabetes type 2, controlled Full body hives GERD (gastroesophageal reflux disease) History of attempted suicide History of non-suicidal self-harm Hyperlipidemia Hypomagnesemia Major depression MDD (major depressive disorder), recurrent episode, severe Mood disorder Overdose PTSD (post-traumatic stress disorder) Suicide attempt Suicide attempt by acetaminophen overdose <Alicja Wilcox NP - Last Filed: 02/18/23 16:48> Social History Social History: Social History Household Members: Other Household Members Other:: penitentiary Housing: Other Housing Other:: penitentiary Do you presently have visiting nurse or other home services: No Unable to assess alcohol history related to: Unknown Alcohol intake: never Patient Tobacco Use Status: Current everyday Tobacco user Tobacco use type: Cigarette Cigarette Packs Per Day: 1 Cigarettes Per Day: 16 Years Smoked: 20 Smoked in Last 30 Days: Yes e-Cigarette/Vaping Use: Never Used Use of substances other than those prescribed or required for medical reasons: No Substance Use Type: Caffiene Substance Use Frequency: Chronic Longstanding Last Used Substance: Just Prior to Admission Any prior treatment program specific to substance use: No Advance Directives: No Advance Directives Information Provided: Yes Patient : No service: No Current occupational status: unemployed and disabled Sexual orientation: Don't Know <Alicja Wilcox NP - Last Filed: 02/18/23 16:48> Physical Exam ED Vital Signs: Vital Signs - 24 hr 02/18/23 14:23 Temperature 97.6 F Pulse Rate 98 Respiratory Rate 16 Blood Pressure 121/97 H Pulse Oximetry 98 Oxygen Delivery Method Room Air BMI result Body Mass Index 37.8 <Alicja Wilcox NP - Last Filed: 02/18/23 16:48> Vital Signs - 24 hr 02/18/23 14:23 Temperature 97.6 F Pulse Rate 98 Respiratory Rate 16 Blood Pressure 121/97 H Pulse Oximetry 98 Oxygen Delivery Method Room Air BMI result Body Mass Index 37.8 <TIMI Dong - Last Filed: 02/18/23 17:50> Const General: cooperative, healthy appearing and no acute distress <Alicja Wilcox NP - Last Filed: 02/18/23 16:48> Orientation/consciousness: oriented to person, oriented to place, oriented to time and patient oriented x3 <Alicja Wilcox NP - Last Filed: 02/18/23 16:48> HENMT Head: Yes normocephalic and Yes atraumatic <Alicja Wilcox NP - Last Filed: 02/18/23 16:48> Ears: external ears normal <Alicja Wilcox NP - Last Filed: 02/18/23 16:48> General nose exam: Normal external nose present <Alicja Wilcox NP - Last Filed: 02/18/23 16:48> Face and sinus: Yes face symmetric <Alicja Wilcox NP - Last Filed: 02/18/23 16:48> Mouth: oropharynx normal and moist mucous membranes <Alicja Wilcox NP - Last Filed: 02/18/23 16:48> Throat: Yes uvula midline <Alicja Wilcox NP - Last Filed: 02/18/23 16:48> Eyes Pupils: Equal, round and reactive pupils present <Alicja Wilcox NP - Last Filed: 02/18/23 16:48> Neck Neck: Yes normal visual inspection and Yes supple <Alicja Wilcox NP - Last Filed: 02/18/23 16:48> Resp Effort & Inspection: normal respiratory effort and able to speak in complete sentences <Alicja Wilcox NP - Last Filed: 02/18/23 16:48> Auscultation: clear to auscultation bilaterally <Alicja Wilcox NP - Last Filed: 02/18/23 16:48> Cardio Rate: regular rate <Alicja Wilcox NP - Last Filed: 02/18/23 16:48> Rhythm: regular rhythm <Alicja Wilcox NP - Last Filed: 02/18/23 16:48> Heart sounds: S1 normal heart sound present and S2 normal heart sound present <Alicja Wilcox NP - Last Filed: 02/18/23 16:48> GI Palpation (GI): Soft to palpation and nontender <Alicja Wilcox NP - Last Filed: 02/18/23 16:48> Auscultation: normoactive bowel sounds <Alicja Wilcox NP - Last Filed: 02/18/23 16:48> General: Yes no CVA tenderness <Alicja Wilcox NP - Last Filed: 02/18/23 16:48> Back/Spine/Pelvis Back: no CVA tenderness <Alicja Wilcox NP - Last Filed: 02/18/23 16:48> Skin General skin exam: elasticity normal and turgor normal <Alicja Wilcox NP - Last Filed: 02/18/23 16:48> Neuro General: oriented to person, oriented to place, oriented to time, patient oriented x3, moves all extremities, no focal motor deficits and CN's II-XI intact bilaterally <Alicja Wilcox NP - Last Filed: 02/18/23 16:48> Cranial nerves: Yes Equal, round and reactive pupils present <Alicja Wilcox NP - Last Filed: 02/18/23 16:48> Cognition (Neuro): normal cognition <Alicja Wilcox NP - Last Filed: 02/18/23 16:48> Gait exam (Neuro): Normal gait present <Alicja Wilcox NP - Last Filed: 02/18/23 16:48> Motor exam (neuro): Normal motor muscle tone present throughout <Alicja Wilcox NP - Last Filed: 02/18/23 16:48> Sensory Exam: No Sensory deficit (Neuro) <Alicja Wilcox NP - Last Filed: 02/18/23 16:48> Extrem General: Yes full ROM and Yes no pedal edema <Alicja Wilcox NP - Last Filed: 02/18/23 16:48> Psych Speech and movement: Pressured speech present <Alicja Wilcox NP - Last Filed: 02/18/23 16:48> Affect: normal affect <Alicja Wilcox NP - Last Filed: 02/18/23 16:48> Attitude: cooperative <Alicja Wilcox NP - Last Filed: 02/18/23 16:48> Thought content: Suicidality present, no homicidality and Hallucination(s) present auditory <Alicja Wilcox NP - Last Filed: 02/18/23 16:48> Course Course Course Narrative: 16:42 Labs unchanged from baseline, acetaminophen/salicylate levels normal. Care team recommending discharge home which patient is agreeable with, is bonifacio for safety. Care team to contact patient's penitentiary to ensure they are agreeable to plan. <Alicja Wilcox NP - Last Filed: 02/18/23 16:48> Reevaluation(s) Reevaluation #1: Patient cleared by care team student union consultant [facility] and [facility] will accept patient. Patient is not suicidal or homicidal. <TIMI Dong - Last Filed: 02/18/23 17:50> Medications Administered Discontinued Medications Generic Name Dose Route Start Last Admin Trade Name Freq PRN Reason Stop Dose Admin Nicotine 14 mg 02/18/23 14:50 02/18/23 15:28 Nicotine 14 Mg Patch.Td24 TRANSDERMA 02/18/23 14:51 14 mg ONCE ONE Administration <Alicja Wilcox NP - Last Filed: 02/18/23 16:48> Medications Administered Discontinued Medications Generic Name Dose Route Start Last Admin Trade Name Freq PRN Reason Stop Dose Admin Nicotine 14 mg 02/18/23 14:50 02/18/23 15:28 Nicotine 14 Mg Patch.Td24 TRANSDERMA 02/18/23 14:51 14 mg ONCE ONE Administration <TIMI Dong - Last Filed: 02/18/23 17:50> Medical Decision Making Medical Decision Making MDM Narrative: Patient is a 47-year-old female with significant psychiatric history of prior SI attempts, PTSD, borderline personality, MDD, HLD, GERD and T2DM presenting [facility] with suicidal ideation and auditory hallucinations since this morning. She is calm and cooperative, denies any ingestion, VS WNL, nontoxic appearing. Differential includes substance induced mood disorder, acute psychosis, schizophrenia, PTSD, bipolar disorder, MDD with psychotic features, schizoaffective disorder. She has history of frequent overdose attempts, will check acetaminophen and salicylate levels, CBC and BMP checked yesterday and were WNL. Will have patient evaluated by care team. Nicotine patch ordered for nicotine craving. <Alicja Wilcox NP - Last Filed: 02/18/23 16:48> Differential Diagnosis Differential Diagnoses: The differential diagnosis associated with the presentation includes <Alicja Wilcox NP - Last Filed: 02/18/23 16:48> As above. <Alicja Wilcox NP - Last Filed: 02/18/23 16:48> Admission/Observation Consideration of admission/observation: Escalation of care including admission/observation considered <Alicja Wilcox NP - Last Filed: 02/18/23 16:48> Consult Healthcare Provider Management of the patient was discussed with: Behavioral Health Provider <Alicja Wilcox NP - Last Filed: 02/18/23 16:48> Lab Data MDM Lab Attestation statement: I reviewed the patient's lab results. <Alicja Wilcox NP - Last Filed: 02/18/23 16:48> Labs: Lab Results 02/18/23 02/18/23 Range/Units 14:54 15:19 Salicylates < 5.0 L (15-30) mg/dL Urine Opiates Screen Not Detected (Not Detect) Urine Fentanyl Screen Not Detected (Not Detect) Acetaminophen < 17 (<30) mcg/mL Ur Barbiturates Screen Not Detected (Not Detect) Ur Phencyclidine Scrn Not Detected (Not Detect) Ur Amphetamines Screen Not Detected (Not Detect) U Benzodiazepines Scrn Not Detected (Not Detect) Urine Cocaine Screen Not Detected (Not Detect) U Marijuana (THC) Screen Not Detected (Not Detect) <Alicja Wilcox NP - Last Filed: 02/18/23 16:48> Lab Results 02/18/23 02/18/23 Range/Units 14:54 15:19 Salicylates < 5.0 L (15-30) mg/dL Urine Opiates Screen Not Detected (Not Detect) Urine Fentanyl Screen Not Detected (Not Detect) Acetaminophen < 17 (<30) mcg/mL Ur Barbiturates Screen Not Detected (Not Detect) Ur Phencyclidine Scrn Not Detected (Not Detect) Ur Amphetamines Screen Not Detected (Not Detect) U Benzodiazepines Scrn Not Detected (Not Detect) Urine Cocaine Screen Not Detected (Not Detect) U Marijuana (THC) Screen Not Detected (Not Detect) <TIMI Dong - Last Filed: 02/18/23 17:50> Independent Historian Clinical information obtained from an independent historian. History obtained from or confirmed by: EMS <Alicja Wilcox NP - Last Filed: 02/18/23 16:48> External Record Review External record reviewed: Inpatient record, Office record and Outpatient record <Alicja Wilcox NP - Last Filed: 02/18/23 16:48> Chronic Conditions Patient?s care impacted by: Other (PTSD, bipolar disorder) <Alicja Wilcox NP - Last Filed: 02/18/23 16:48> Discharge Plan Discharge Clinical Impression: Bipolar disorder, Auditory hallucination <Alicja Wilcox NP - Last Filed: 02/18/23 16:48> Patient Disposition: Home, Self-Care <Alicja Wilcox NP - Last Filed: 02/18/23 16:48> Instructions: Bipolar Disorder (DC) <Alicja Wilcox NP - Last Filed: 02/18/23 16:48> Additional Instructions: You were evaluated in the emergency department today for your psychiatric complaint. You were evaluated by both the emergency medicine team and Care team staff and have been cleared to go home. Please follow up with your psychiatrist immediately. Please use resources given to you in the emergency department. Return to the emergency department if you experience thoughts of hurting herself or others, audio or visual hallucinations, or for any other concerning symptoms. <Alicja Wilcox NP - Last Filed: 02/18/23 16:48> Prescriptions: No Action metformin 500 mg tablet 1 tab PO BID atorvastatin 10 mg tablet 10 mg PO DAILY montelukast 10 mg tablet 1 tab PO BEDTIME nicotine (polacrilex) 4 mg gum 1 ea PO Q2H PRN (Reason: Smoking Cessation) lisinopril 5 mg tablet 1 tab PO DAILY ferrous sulfate 325 mg (65 mg iron) Tablet 325 mg PO DAILY benztropine [Cogentin] 1 mg Tablet 1 mg PO BID fluoxetine 40 mg capsule 2 cap PO DAILY pantoprazole 40 mg tablet,delayed release (DR/EC) 1 tab PO DAILY@0630 mirtazapine 15 mg tablet 0.5 tab PO DAILY albuterol sulfate [Ventolin HFA] 90 mcg/actuation HFA aerosol inhaler 2 puff inhalation Q4-6H PRN (Reason: Shortness Of Breath Or Wheezing) fluphenazine HCl 5 mg tablet 1 tab PO BID chlorpromazine 50 mg tablet 1 tab PO TID PRN (Reason: Agitation) prazosin 1 mg Capsule 4 mg PO BEDTIME 30 Days Qty: 120 0RF Protocol: Hold for SBP< HOLD for SBP < : 90 trazodone 150 mg tablet 1 tab PO BEDTIME meclizine 25 mg tablet 25 mg PO DAILY PRN (Reason: dizziness) Qty: 6 0RF ketorolac 10 mg tablet 10 mg PO TID PRN (Reason: pain) 5 Days Qty: 10 0RF phenazopyridine [Pyridium] 100 mg tablet 200 mg PO TID 2 Days Qty: 6 0RF nystatin 100,000 unit/gram powder 1 appl topical DAILY Qty: 15 0RF <Alicja Wilcox NP - Last Filed: 02/18/23 16:48> Interventions: [place]-Suicide Risk Severity Scale Last Done: 02/18/23 15:51 <Alicja Wilcox NP - Last Filed: 02/18/23 16:48>
[2023-02-18 14:23] VITALS: BP 121/97; BP 136/82; PULSE 116; PULSE 98; RESP 16; TEMP 36.4; O2SAT 97; O2SAT 98; BMI 37.8
[2023-02-18] MEDS: Nicotine 14 MG PATCH.TD24 TRANSDERMA (15:28)
[2023-02-18 15:35] LABS: Amphetamine Screen Urine Not Detected (Not Detect); Barbiturates, Urine Not Detected (Not Detect); Benzodiazepines Screen Urine Not Detected (Not Detect); Cannabinoid Screen Urine Not Detected (Not Detect); Cocaine Screen Urine Not Detected (Not Detect); Fentanyl, urine Not Detected (Not Detect); Opiate Screen Urine Not Detected (Not Detect); Phencyclidine Screen Urine Not Detected (Not Detect)
[2023-02-18 16:11] LABS: Acetaminophen LAB < 17 mcg/mL (<30); Salicylate < 5.0 mg/dL (15-30)
--- NOTE | 2023-02-18 17:12 | MHC.CARE ---
Pt is a 47 y/o [place] speaking single female who resides at the [facility] in [place], [place]. Pt is well known to the CARE Team and was here at [facility] yesterday for a similar presentation. Today, pt called non-emergency police and requested a ride to [facility] due to her hearing voices telling her to break a plate and cut herself and to take ?a bunch of tylenol?. Once here the pt started to feel better and requested to be sent back to her penitentiary. Pt was medically cleared and referred to the CARE Team to make an appropriate treatment recommendation. T/W informed the pt that he wanted to talk with her prior to her going back to her penitentiary. Pt stated that she is reminded of the first time she was at the penitentiary and what happened back then. Due to these thoughts, her panic attacks start. Once the panic sets in she begins to hear the voices telling her to hurt herself. Pt stated that she is going to talk to someone named Toni about moving into her own apt or to move to another penitentiary. Pt stated that she has just been there too long. T/W asked how she is going to keep herself safe and she stated that she will color with a staff member, has group tomorrow and then has therapy on Sunday. Pt stated that she will also call [facility] if she needs the extra help. She has called them in the past but the pt stated that they are only sometimes helpful. Pt stated they typically only ask her to use her coping skills.? Pt is A&Ox4, wearing hospital attire and sitting on her hospital bed. Pt is a little disheveled and appears her stated age. Pt is of a larger weight/build and medium height. Pt was fully engaged in the conversation, eye contact and speech were WNL. Pt stated that she is getting enough sleep and she has a good appetite. Pt?s mood was normal and her affect was congruent with her mood. Pt?s memory and concentration are intact. Pt denies SI/HI/AVH at this time, however, earlier today she was hearing voices telling her to hurt herself. Pt?s insight is good, but her impulse control and judgment are poor. It is the recommendation of the CARE Team that the pt be d/c?d and able to return to her penitentiary. CARE Team consulted with ED provider TIMI Holley and on-call loan processing supervisor ANGELA Black and they both agree with the recommendation to have the pt return to her group and meet up with her current providers as scheduled.
== END 2023-02-18 17:52 | disposition home or self-care (01) ==
PROVIDERS: Registered Nurse Emergency; Emergency Provider Emergency Medicine
DX: R44.0 Auditory hallucinations (principal); R45.851 Suicidal ideations; F31.9 Bipolar disorder, unspecified; F17.210 Nicotine dependence, cigarettes, uncomplicated; Z71.6 Tobacco abuse counseling; Z79.899 Other long term (current) drug therapy
CPT/HCPCS: 36415; 80143; 80179; 80307; 99285

== ENCOUNTER 2023-02-21 20:29 | Emergency (ER) | payer MEDICARE, MEDICAID, SELFPAY ==
[2023-02-21 20:37] VITALS: BP 138/94; PULSE 104; RESP 16; TEMP 36.6; O2SAT 97; BMI 39.9
--- NOTE | 2023-02-21 20:49 | ED.PSYCH ---
HPI - Psych General Chief Complaint: Psychiatric Symptoms Stated Complaint: hearing voices Time Seen by Provider: 02/21/23 20:40 Source: patient Mode of arrival: EMS Limitations: no limitations History of Present Illness HPI Narrative: Patient comes to the emergency room complaining of hearing voices. Patient was picked up by EMS at her senior living, she wanted to go to the living room for a few hours. EMS brought her here. Patient states that she is not suicidal homicidal will like to be discharged Related Data Home Medications Medication Instructions Recorded Confirmed atorvastatin 10 mg tablet 10 mg PO DAILY 05/29/21 02/12/23 metformin 500 mg tablet 1 tab PO BID 05/29/21 02/12/23 montelukast 10 mg tablet 1 tab PO BEDTIME 05/29/21 02/12/23 lisinopril 5 mg tablet 1 tab PO DAILY 07/30/22 02/12/23 nicotine (polacrilex) 4 mg gum 1 ea PO Q2H PRN Smoking Cessation 07/30/22 02/12/23 trazodone 150 mg tablet 1 tab PO BEDTIME 09/23/22 02/12/23 benztropine 1 mg tablet 1 mg PO BID 12/19/22 02/12/23 ferrous sulfate 325 mg (65 mg 325 mg PO DAILY 12/19/22 02/12/23 iron) tablet albuterol sulfate 90 mcg/actuation 2 puff inhalation Q4-6H PRN 12/24/22 02/12/23 aerosol inhaler (Ventolin HFA) Shortness Of Breath Or Wheezing chlorpromazine 50 mg tablet 1 tab PO TID PRN Agitation 12/24/22 02/12/23 fluoxetine 40 mg capsule 2 cap PO DAILY 12/24/22 02/12/23 fluphenazine HCl 5 mg tablet 1 tab PO BID 12/24/22 02/12/23 mirtazapine 15 mg tablet 0.5 tab PO DAILY 12/24/22 02/12/23 pantoprazole 40 mg tablet,delayed 1 tab PO DAILY@0630 12/24/22 02/12/23 release Previous Rx's Medication Instructions Recorded prazosin 1 mg capsule 4 mg PO BEDTIME 30 days #120 caps 10/18/21 ketorolac 10 mg tablet 10 mg PO TID PRN pain 5 days #10 01/24/23 tabs meclizine 25 mg tablet 25 mg PO DAILY PRN dizziness #6 01/24/23 tabs phenazopyridine 100 mg tablet 200 mg PO TID 2 days #6 tabs 01/24/23 (Pyridium) nystatin 100,000 unit/gram topical 1 appl topical DAILY #15 grams 02/17/23 powder Allergies Allergy/AdvReac Type Severity Reaction Status Date / Time Fish Containing Products Allergy Severe ANAPHYLAXIS Verified 02/17/23 13:41 codeine [Codeine] Allergy Intermediate RASH Verified 02/17/23 13:41 Penicillins Allergy Intermediate RASH Verified 02/17/23 13:41 prednisone [Prednisone] Allergy Intermediate RASH Verified 02/17/23 13:41 Sulfa (Sulfonamide Allergy Intermediate RASH Verified 02/17/23 13:41 Antibiotics) [Sulfa (Sulfonamides)] azithromycin [AZITHROMYCIN] AdvReac Severe RASH Verified 02/17/23 13:41 ziprasidone [From Geodon] AdvReac Intermediate dysuria, Verified 02/17/23 13:41 rash Review of Systems Review of Systems: Constitutional : No Weight loss, No Fever, No Chills, No Night Sweats, No Fatigue, No Malaise ENT/Mouth : No Hearing loss, No Ear Pain, No Nasal Congestion, No Sinus Pain, No Hoarseness, No sore throat, No Rhinorrhea, No Swallowing Difficulty Eyes: No Eye Pain, No Swelling, No Redness, No Foreign Body, No Discharge, No Vision Changes Cardiovascular : No Chest Pain, No SOB, No Dyspnea on Exertion, No Orthopnea, No Edema, No Palpitations Respiratory : No Cough, No Sputum, No Wheezing, No Smoke Exposure, No Dyspnea Gastrointestinal : No Nausea, No Vomiting, No Diarrhea, No Constipation, No abdominal Pain, No Hematochezia, No Melena Genitourinary : no irregular bleeding, No Dysuria, No Urinary Frequency, No Hematuria, No Urinary Incontinence, No Urgency, No Flank Pain, No Urinary Flow Changes, No Hesitancy Musculoskeletal : No joint pain, No Myalgias, No Joint Swelling Skin : No Skin Lesions, No rash Neuro : No Weakness, No Numbness, No Paresthesias, No Loss of Consciousness, No Dizziness, No Headache Psych : No Anxiety/Panic, No Depression, No SI/HI/AH/VH, No Social Issues, Heme/Lymph: No Bruising, No Bleeding,No Lymphadenopathy Endocrine : No Polyuria, No Polydipsia, No Temperature Intolerance [facility] Past Medical History Medical History Acetaminophen overdose Borderline personality disorder Bronchitis Depression Diabetes type 2, controlled Full body hives GERD (gastroesophageal reflux disease) History of attempted suicide History of non-suicidal self-harm Hyperlipidemia Hypomagnesemia Major depression MDD (major depressive disorder), recurrent episode, severe Mood disorder Overdose PTSD (post-traumatic stress disorder) Suicide attempt Suicide attempt by acetaminophen overdose Social History Social History Household Members: Other Household Members Other:: senior living Housing: Other Housing Other:: senior living Do you presently have visiting nurse or other home services: No Unable to assess alcohol history related to: Unknown Alcohol intake: never Patient Tobacco Use Status: Current everyday Tobacco user Tobacco use type: Cigarette Cigarette Packs Per Day: 1 Cigarettes Per Day: 16 Years Smoked: 20 e-Cigarette/Vaping Use: Never Used Substance Use Type: Caffiene service: No Current occupational status: unemployed and disabled Sexual orientation: Don't Know Physical Exam Vital Signs: Vital Signs: Last Vital Signs Temp 98 F 02/21/23 20:37 Pulse 104 H 02/21/23 20:37 Resp 16 02/21/23 20:37 BP 138/94 H 02/21/23 20:37 Pulse Ox 97 02/21/23 20:37 O2 Del Method Room Air 02/21/23 20:37 BMI result Body Mass Index 39.9 Const: Other: Appearance: Alert. Oriented X3. No acute distress. Eyes: Pupils equal, round and reactive to light. ENT: Pharynx normal. Neck: Normal inspection. Neck supple. No lymph nodes noted. No crepitus CVS: Normal heart rate and rhythm. Pulses normal. Normal S1 and S2 Respiratory: No respiratory distress. Breath sounds normal. No Wheezing. No rales Abdomen: Soft and nontender. No rigidity. No distention. Skin: Skin warm and dry. Normal skin color. Normal skin turgor. Extremities: No lower extremity edema. No Lacerations. No Rash Neuro: Oriented X 3. No motor deficit. No sensory deficit. Moving all extremities. No slurred speech. CN 2 through 12 grossly intact Psych: calm, cooperative, normal affect Medical Decision Making Medical Decision Making MDM Narrative: -patient is not suicidal homicidal, declined care, would like to be discharged back to her senior living Discharge Plan Discharge Clinical Impression: Acute anxiety Patient Disposition: Home, Self-Care Instructions: Anxiety (ED) Additional Instructions: Please follow-up with your primary care physician tomorrow. If you have any worsening or new symptoms, please return to the emergency room or call 911 Prescriptions: No Action metformin 500 mg tablet 1 tab PO BID atorvastatin 10 mg tablet 10 mg PO DAILY montelukast 10 mg tablet 1 tab PO BEDTIME nicotine (polacrilex) 4 mg gum 1 ea PO Q2H PRN (Reason: Smoking Cessation) lisinopril 5 mg tablet 1 tab PO DAILY ferrous sulfate 325 mg (65 mg iron) Tablet 325 mg PO DAILY benztropine [Cogentin] 1 mg Tablet 1 mg PO BID fluoxetine 40 mg capsule 2 cap PO DAILY pantoprazole 40 mg tablet,delayed release (DR/EC) 1 tab PO DAILY@0630 mirtazapine 15 mg tablet 0.5 tab PO DAILY albuterol sulfate [Ventolin HFA] 90 mcg/actuation HFA aerosol inhaler 2 puff inhalation Q4-6H PRN (Reason: Shortness Of Breath Or Wheezing) fluphenazine HCl 5 mg tablet 1 tab PO BID chlorpromazine 50 mg tablet 1 tab PO TID PRN (Reason: Agitation) prazosin 1 mg Capsule 4 mg PO BEDTIME 30 Days Qty: 120 0RF Protocol: Hold for SBP< HOLD for SBP < : 90 trazodone 150 mg tablet 1 tab PO BEDTIME meclizine 25 mg tablet 25 mg PO DAILY PRN (Reason: dizziness) Qty: 6 0RF ketorolac 10 mg tablet 10 mg PO TID PRN (Reason: pain) 5 Days Qty: 10 0RF phenazopyridine [Pyridium] 100 mg tablet 200 mg PO TID 2 Days Qty: 6 0RF nystatin 100,000 unit/gram powder 1 appl topical DAILY Qty: 15 0RF
--- NOTE | 2023-02-21 20:55 | MHC.CARE ---
Pt is well known to ED and CARE Team. Pt reports she was just discharged from [facility] an hour ago for crisis and returned home. Pt reports during triage that she did not request to come here she wants to go to respite. She stated Raven from [facility] co-response told her she could call the PD and they could transport her to [facility] if she ever wanted support, which PD in return said she had to come here instead. Pt was not pleased about being here and states she wants to return home. Pt states that she has to return to work tomorrow and has an apt that she needs to attend. Provider Oleg Ryan reports she will be discharging her without labs and changeover, notified CARE Team and CARE Team briefly spoke with pt. Pt denies any SI/HI or any urges. [facility].
== END 2023-02-21 20:56 | disposition home or self-care (01) ==
PROVIDERS: Emergency Provider Emergency Medicine
DX: F41.9 Anxiety disorder, unspecified (principal); R44.0 Auditory hallucinations; E11.9 Type 2 diabetes mellitus without complications; E78.5 Hyperlipidemia, unspecified; D64.9 Anemia, unspecified; F31.9 Bipolar disorder, unspecified; F43.10 Post-traumatic stress disorder, unspecified; F17.210 Nicotine dependence, cigarettes, uncomplicated; F12.90 Cannabis use, unspecified, uncomplicated; Z91.51 Personal history of suicidal behavior; Z91.52 Personal history of nonsuicidal self-harm; E66.9 Obesity, unspecified; Z68.39 Body mass index [BMI] 39.0-39.9, adult; Z79.84 Long term (current) use of oral hypoglycemic drugs; Z79.899 Other long term (current) drug therapy; Z79.02 Long term (current) use of antithrombotics/antiplatelets
CPT/HCPCS: 99283

== ENCOUNTER 2023-02-22 15:07 | Emergency (ER) | payer MEDICARE, MEDICAID, SELFPAY ==
[2023-02-22 15:19] VITALS: BP 160/94; PULSE 125; RESP 18; TEMP 36.7; O2SAT 98; BMI 36.3
--- NOTE | 2023-02-22 16:09 | ED.PSYCH ---
HPI - Psych General Chief Complaint: Psychiatric Symptoms Stated Complaint: crisis Time Seen by Provider: 02/22/23 15:22 Source: patient, EMS, RN notes reviewed and old records reviewed Mode of arrival: EMS History of Present Illness HPI Narrative: 47 yo female with significant psychiatric history including multiple SI attempts, PTSD, borderline personality disorder, major depressive disorder, hyperlipidemia, GERD and type 2 diabetes, who presents [facility] ED from her [facility] complaining of depression and command auditory hallucinations. Patient admits she self cut arm at [facility]. denies SI/HI. Denies EtOH or illicit substance use MD complaint: feels depressed Related Data Home Medications Medication Instructions Recorded Confirmed atorvastatin 10 mg tablet 10 mg PO DAILY 05/29/21 02/12/23 metformin 500 mg tablet 1 tab PO BID 05/29/21 02/12/23 montelukast 10 mg tablet 1 tab PO BEDTIME 05/29/21 02/12/23 lisinopril 5 mg tablet 1 tab PO DAILY 07/30/22 02/12/23 nicotine (polacrilex) 4 mg gum 1 ea PO Q2H PRN Smoking Cessation 07/30/22 02/12/23 trazodone 150 mg tablet 1 tab PO BEDTIME 09/23/22 02/12/23 benztropine 1 mg tablet 1 mg PO BID 12/19/22 02/12/23 ferrous sulfate 325 mg (65 mg 325 mg PO DAILY 12/19/22 02/12/23 iron) tablet albuterol sulfate 90 mcg/actuation 2 puff inhalation Q4-6H PRN 12/24/22 02/12/23 aerosol inhaler (Ventolin HFA) Shortness Of Breath Or Wheezing chlorpromazine 50 mg tablet 1 tab PO TID PRN Agitation 12/24/22 02/12/23 fluoxetine 40 mg capsule 2 cap PO DAILY 12/24/22 02/12/23 fluphenazine HCl 5 mg tablet 1 tab PO BID 12/24/22 02/12/23 mirtazapine 15 mg tablet 0.5 tab PO DAILY 12/24/22 02/12/23 pantoprazole 40 mg tablet,delayed 1 tab PO DAILY@0630 12/24/22 02/12/23 release Previous Rx's Medication Instructions Recorded prazosin 1 mg capsule 4 mg PO BEDTIME 30 days #120 caps 10/18/21 ketorolac 10 mg tablet 10 mg PO TID PRN pain 5 days #10 01/24/23 tabs meclizine 25 mg tablet 25 mg PO DAILY PRN dizziness #6 01/24/23 tabs phenazopyridine 100 mg tablet 200 mg PO TID 2 days #6 tabs 01/24/23 (Pyridium) nystatin 100,000 unit/gram topical 1 appl topical DAILY #15 grams 02/17/23 powder Allergies Allergy/AdvReac Type Severity Reaction Status Date / Time Fish Containing Products Allergy Severe ANAPHYLAXIS Verified 02/17/23 13:41 codeine [Codeine] Allergy Intermediate RASH Verified 02/17/23 13:41 Penicillins Allergy Intermediate RASH Verified 02/17/23 13:41 prednisone [Prednisone] Allergy Intermediate RASH Verified 02/17/23 13:41 Sulfa (Sulfonamide Allergy Intermediate RASH Verified 02/17/23 13:41 Antibiotics) [Sulfa (Sulfonamides)] azithromycin [AZITHROMYCIN] AdvReac Severe RASH Verified 02/17/23 13:41 ziprasidone [From Geodon] AdvReac Intermediate dysuria, Verified 02/17/23 13:41 rash Review of Systems Review of Systems: Constitutional: No Fever, No Chills, No Fatigue, No Malaise ENT/Mouth: No Hearing loss, No Ear Pain, No Rhinorrhea, No Swallowing Difficulty Eyes: No Eye Pain, No Swelling, No Redness, No Vision Changes Cardiovascular: No Chest Pain, No SOB Respiratory: No Cough, No Sputum, No Dyspnea Gastrointestinal: No Nausea, No Vomiting, No Diarrhea, No Constipation, No Abdominal pain Musculoskeletal: No joint pain, No Myalgias, No Joint Swelling Skin: No Skin Lesions, No rash Neuro: No Weakness, No Headache Psych: + Anxiety/Panic, + Depression, No SI/HI, +AH, No Social Issues Yes all other systems are reviewed and are negative Constitutional: Constitutional: Reports as per [facility] Past Medical History Attestation statement: The following information was validated with the patient. Source: old records reviewed Medical History Acetaminophen overdose Borderline personality disorder Bronchitis Depression Diabetes type 2, controlled Full body hives GERD (gastroesophageal reflux disease) History of attempted suicide History of non-suicidal self-harm Hyperlipidemia Hypomagnesemia Major depression MDD (major depressive disorder), recurrent episode, severe Mood disorder Overdose PTSD (post-traumatic stress disorder) Suicide attempt Suicide attempt by acetaminophen overdose Social History Social History Household Members: Other Household Members Other:: [facility] Housing: Other Housing Other:: [facility] Do you presently have visiting nurse or other home services: No Unable to assess alcohol history related to: Unknown Alcohol intake: never Patient Tobacco Use Status: Current everyday Tobacco user Tobacco use type: Cigarette Cigarette Packs Per Day: 1 Cigarettes Per Day: 16 Years Smoked: 20 e-Cigarette/Vaping Use: Never Used Substance Use Type: Caffiene Advance Directives: No Advance Directives Information Provided: No service: No Current occupational status: unemployed and disabled Sexual orientation: Don't Know Physical Exam Vital Signs: Vital Signs: Last Vital Signs Temp 98.0 F 02/22/23 15:19 Pulse 125 H 02/22/23 15:19 Resp 18 02/22/23 15:19 BP 160/94 H 02/22/23 15:19 Pulse Ox 98 02/22/23 15:19 O2 Del Method Room Air 02/22/23 15:19 BMI result Body Mass Index 36.3 Const: General: cooperative, no acute distress and anxious Orientation/consciousness: patient oriented x3 Limitations: no limitations HEENT: Head: Yes normal to inspection and Yes atraumatic Ears: hearing grossly normal bilaterally General nose exam: Normal external nose present Face and sinus: Yes normal facial exam Eyes: General: appearance normal, both eyes and all related structures EOM: EOMs intact bilaterally Neck: Neck: Yes normal visual inspection and Yes no meningeal signs Resp: Effort & Inspection: normal respiratory effort and no respiratory distress Cardio: Rate: regular rate : General: Yes no CVA tenderness Back/Spine/Pelvis: Back: no CVA tenderness Skin: Other: superficial cuts noted to left arm Rashes: no rashes Neuro: General: patient oriented x3, gait normal, tone normal, moves all extremities, no meningeal signs, no focal motor deficits and CN's II-XI intact bilaterally Gait exam (Neuro): Normal gait present Extrem: General: Yes normal to inspection Psych: Affect: Sad affect present Attitude: cooperative Thought content: suicidality, no homicidality, Hallucination(s) present and Depressive thoughts present Course Course Course Narrative: -[id number]- CARE team spoke with patient briefly, on re-evaluation patient is now ready for discharge. denies SI/HI Results discussed with patient including worrisome signs and symptoms and strict return precautions, and when to return to the emergency department. They verbalized understanding and feel safe for discharge at this time. Medical Decision Making Medical Decision Making [facility] Narrative: 47 yo female with significant psychiatric history including multiple SI attempts, PTSD, borderline personality disorder, major depressive disorder, hyperlipidemia, GERD and type 2 diabetes, who presents [facility] the ED from her [facility] complaining of depression and command auditory hallucinations. on exam vital signs stable, NAD, tearful, sad, superficial abrasions noted to left arm. Denies SI/HI plan: CARE team eval Please refer to course for remaining clinical decision making, interpretation of labs/imaging results, and discussions with consultants and/or family members. Differential Diagnosis Differential Diagnoses: The differential diagnosis associated with the presentation includes As above Admission/Observation Consideration of admission/observation: Escalation of care including admission/observation considered Lab Data [facility] Lab Attestation statement: I reviewed the patient's lab results. Radiology Impression Discussion of test interpretation with radiology: I have reviewed the radiologist's reading. External Record Review External record reviewed: Inpatient record, Office record, Outpatient record, Prior outpatient labs, Prior outpatient radiology, Primary care record and Outside ED record Tests considered The following testing was considered but not selected: As above Discharge Plan Discharge Clinical Impression: Depression, Hallucinations Patient Disposition: Still a Patient Prescriptions: No Action metformin 500 mg tablet 1 tab PO BID atorvastatin 10 mg tablet 10 mg PO DAILY montelukast 10 mg tablet 1 tab PO BEDTIME nicotine (polacrilex) 4 mg gum 1 ea PO Q2H PRN (Reason: Smoking Cessation) lisinopril 5 mg tablet 1 tab PO DAILY ferrous sulfate 325 mg (65 mg iron) Tablet 325 mg PO DAILY benztropine [Cogentin] 1 mg Tablet 1 mg PO BID fluoxetine 40 mg capsule 2 cap PO DAILY pantoprazole 40 mg tablet,delayed release (DR/EC) 1 tab PO DAILY@0630 mirtazapine 15 mg tablet 0.5 tab PO DAILY albuterol sulfate [Ventolin HFA] 90 mcg/actuation HFA aerosol inhaler 2 puff inhalation Q4-6H PRN (Reason: Shortness Of Breath Or Wheezing) fluphenazine HCl 5 mg tablet 1 tab PO BID chlorpromazine 50 mg tablet 1 tab PO TID PRN (Reason: Agitation) prazosin 1 mg Capsule 4 mg PO BEDTIME 30 Days Qty: 120 0RF Protocol: Hold for SBP< HOLD for SBP < : 90 trazodone 150 mg tablet 1 tab PO BEDTIME meclizine 25 mg tablet 25 mg PO DAILY PRN (Reason: dizziness) Qty: 6 0RF ketorolac 10 mg tablet 10 mg PO TID PRN (Reason: pain) 5 Days Qty: 10 0RF phenazopyridine [Pyridium] 100 mg tablet 200 mg PO TID 2 Days Qty: 6 0RF nystatin 100,000 unit/gram powder 1 appl topical DAILY Qty: 15 0RF
== END 2023-02-22 16:32 | disposition home or self-care (01) ==
PROVIDERS: Emergency Provider Student in an Organized Health Care Education/Training Program; PCP Nurse Practitioner Family
DX: F33.1 Major depressive disorder, recurrent, moderate (principal); R44.0 Auditory hallucinations; R45.851 Suicidal ideations; E11.9 Type 2 diabetes mellitus without complications; Z79.899 Other long term (current) drug therapy
CPT/HCPCS: 99283

== ENCOUNTER 2023-02-25 12:45 | Emergency (ER) | payer MEDICARE, MEDICAID, SELFPAY ==
[2023-02-25 13:02] VITALS: BP 117/69; PULSE 89; RESP 18; TEMP 36.7; O2SAT 97
--- NOTE | 2023-02-25 13:07 | ED.PSYCH ---
HPI - Psych General Chief Complaint: Psychiatric Symptoms Stated Complaint: Si, hearing voices per EMS Time Seen by Provider: 02/25/23 12:55 Source: patient and EMS Mode of arrival: EMS Limitations: no limitations History of Present Illness HPI Narrative: 47 yo female with significant psychiatric history including multiple SI attempts, PTSD, borderline personality disorder, major depressive disorder, hyperlipidemia, GERD and type 2 diabetes, who [facility] complaining of depression and command auditory hallucinations, feeling suicidal. Patient states his mother's Day and she just wants to be with her mother who is . No HI, physical complaints, alcohol or substance use. Related Data Home Medications Medication Instructions Recorded Confirmed atorvastatin 10 mg tablet 10 mg PO DAILY 05/29/21 02/12/23 metformin 500 mg tablet 1 tab PO BID 05/29/21 02/12/23 montelukast 10 mg tablet 1 tab PO BEDTIME 05/29/21 02/12/23 lisinopril 5 mg tablet 1 tab PO DAILY 07/30/22 02/12/23 nicotine (polacrilex) 4 mg gum 1 ea PO Q2H PRN Smoking Cessation 07/30/22 02/12/23 trazodone 150 mg tablet 1 tab PO BEDTIME 09/23/22 02/12/23 benztropine 1 mg tablet 1 mg PO BID 12/19/22 02/12/23 ferrous sulfate 325 mg (65 mg 325 mg PO DAILY 12/19/22 02/12/23 iron) tablet albuterol sulfate 90 mcg/actuation 2 puff inhalation Q4-6H PRN 12/24/22 02/12/23 aerosol inhaler (Ventolin HFA) Shortness Of Breath Or Wheezing chlorpromazine 50 mg tablet 1 tab PO TID PRN Agitation 12/24/22 02/12/23 fluoxetine 40 mg capsule 2 cap PO DAILY 12/24/22 02/12/23 fluphenazine HCl 5 mg tablet 1 tab PO BID 12/24/22 02/12/23 mirtazapine 15 mg tablet 0.5 tab PO DAILY 12/24/22 02/12/23 pantoprazole 40 mg tablet,delayed 1 tab PO DAILY@0630 12/24/22 02/12/23 release Previous Rx's Medication Instructions Recorded prazosin 1 mg capsule 4 mg PO BEDTIME 30 days #120 caps 10/18/21 ketorolac 10 mg tablet 10 mg PO TID PRN pain 5 days #10 01/24/23 tabs meclizine 25 mg tablet 25 mg PO DAILY PRN dizziness #6 01/24/23 tabs phenazopyridine 100 mg tablet 200 mg PO TID 2 days #6 tabs 01/24/23 (Pyridium) nystatin 100,000 unit/gram topical 1 appl topical DAILY #15 grams 02/17/23 powder Allergies Allergy/AdvReac Type Severity Reaction Status Date / Time Fish Containing Products Allergy Severe ANAPHYLAXIS Verified 02/17/23 13:41 codeine [Codeine] Allergy Intermediate RASH Verified 02/17/23 13:41 Penicillins Allergy Intermediate RASH Verified 02/17/23 13:41 prednisone [Prednisone] Allergy Intermediate RASH Verified 02/17/23 13:41 Sulfa (Sulfonamide Allergy Intermediate RASH Verified 02/17/23 13:41 Antibiotics) [Sulfa (Sulfonamides)] azithromycin [AZITHROMYCIN] AdvReac Severe RASH Verified 02/17/23 13:41 ziprasidone [From Geodon] AdvReac Intermediate dysuria, Verified 02/17/23 13:41 rash Review of Systems Review of Systems: Yes all other systems are reviewed and are negative Constitutional: Constitutional: Reports no additional constitutional complaints, Denies body ache(s), Denies chills, Denies fever(s), Denies headache(s) and Denies weakness Eyes: Eyes: Reports no additional eye complaints and Denies change in vision ENT: Reports system reviewed and no additional complaints, except as documented, Denies dizziness, Denies headache(s), Denies nasal congestion, Denies nasal discharge and Denies neck pain Cardiovascular: Cardiovascular: Reports no additional cardiovascular complaints, Denies chest pain, Denies leg edema and Denies dyspnea Respiratory: Respiratory: Reports no additional respiratory complaints, Denies cough and Denies dyspnea Gastrointestinal: Gastrointestinal: Reports no additional gastrointestinal complaints, Denies abdominal pain, Denies diarrhea, Denies nausea and Denies vomiting Genitourinary: Genitourinary: Reports no additional female genitourinary complaints and Denies urinary incontinence Musculoskeletal: Musculoskeletal: Reports no additional musculoskeletal complaints, Denies back pain, Denies arthralgias, Denies joint swelling, Denies neck pain, Denies numbness and Denies tingling Integumentary/Breasts: Skin/Breast: Reports system reviewed and no additional complaints, except as docu and Denies rash Neurologic: Reports system reviewed and no additional complaints, except as documented, Denies Abnormal speech present, Denies dizziness, Denies headache(s), Denies numbness, Denies tingling and Denies weakness Psychiatric: Psychiatric: Reports depression and Reports suicidal ideation [facility] Past Medical History Attestation statement: The following information was validated with the patient. 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: Other Household Members Other:: jail Housing: Other Housing Other:: jail Do you presently have visiting nurse or other home services: No Unable to assess alcohol history related to: Unknown Alcohol intake: never Patient Tobacco Use Status: Current everyday Tobacco user Tobacco use type: Cigarette Cigarette Packs Per Day: 1 Cigarettes Per Day: 16 Years Smoked: 20 e-Cigarette/Vaping Use: Never Used Substance Use Type: Caffiene Advance Directives: No Advance Directives Information Provided: No service: No Current occupational status: unemployed and disabled Sexual orientation: Don't Know Physical Exam Vital Signs: Vital Signs: Last Vital Signs Temp 98.1 F 02/25/23 13:02 Pulse 89 02/25/23 13:02 Resp 18 02/25/23 13:02 BP 117/69 02/25/23 13:02 Pulse Ox 97 02/25/23 13:02 O2 Del Method Room Air 02/25/23 13:02 BMI result Body Mass Index 36.6 Const: General: cooperative, healthy appearing, comfortable and no acute distress Orientation/consciousness: patient oriented x3 Limitations: no limitations HEENT: Head: Yes normal to inspection Ears: hearing grossly normal bilaterally General nose exam: Normal external nose present Face and sinus: Yes normal facial exam Mouth: Normal oral and palatal mucosa present Throat: Yes posterior oropharynx normal Eyes: General: appearance normal, both eyes and all related structures Pupils: Equal, round and reactive pupils present Neck: Neck: Yes normal visual inspection Chest: Chest palpation & inspection: normal inspection of the chest Resp: Effort & Inspection: normal respiratory effort Auscultation: clear to auscultation bilaterally Cardio: Rate: regular rate Rhythm: regular rhythm Peripheral pulses: Peripheral pulses 2+ throughout GI: Inspection: Yes normal to inspection Palpation (GI): Soft to palpation and nontender Auscultation: normal bowel sounds Back/Spine/Pelvis: Thoracic/Lumbar Spine: thoracic and lumbar spine normal to inspection Skin: General skin exam: no rashes or lesions noted Neuro: General: patient oriented x3, no focal motor deficits and normal sensation to monofilament Cranial nerves: Yes Equal, round and reactive pupils present Cognition (Neuro): normal cognition Speech: No Abnormal speech present Gait exam (Neuro): Normal gait present Motor exam (neuro): 5/5 motor strength present throughout Extrem: General: Yes normal to inspection Course Course Course Narrative: Patient was seen by care team. Patient denies current SI. Plan for discharge back to the jail. Medical Decision Making Medical Decision Making [facility] Narrative: 47-year-old female here with depression,auditory hallucinations, suicidal thoughts. Low concern for acute ingestion or trauma Will need care team consultation. Lab Data [facility] Lab Attestation statement: I reviewed the patient's lab results. Discharge Plan Discharge Clinical Impression: Borderline personality disorder Patient Disposition: Home, Self-Care Instructions: Borderline Personality Disorder (DC) Prescriptions: No Action metformin 500 mg tablet 1 tab PO BID atorvastatin 10 mg tablet 10 mg PO DAILY montelukast 10 mg tablet 1 tab PO BEDTIME nicotine (polacrilex) 4 mg gum 1 ea PO Q2H PRN (Reason: Smoking Cessation) lisinopril 5 mg tablet 1 tab PO DAILY ferrous sulfate 325 mg (65 mg iron) Tablet 325 mg PO DAILY benztropine [Cogentin] 1 mg Tablet 1 mg PO BID fluoxetine 40 mg capsule 2 cap PO DAILY pantoprazole 40 mg tablet,delayed release (DR/EC) 1 tab PO DAILY@0630 mirtazapine 15 mg tablet 0.5 tab PO DAILY albuterol sulfate [Ventolin HFA] 90 mcg/actuation HFA aerosol inhaler 2 puff inhalation Q4-6H PRN (Reason: Shortness Of Breath Or Wheezing) fluphenazine HCl 5 mg tablet 1 tab PO BID chlorpromazine 50 mg tablet 1 tab PO TID PRN (Reason: Agitation) prazosin 1 mg Capsule 4 mg PO BEDTIME 30 Days Qty: 120 0RF Protocol: Hold for SBP< HOLD for SBP < : 90 trazodone 150 mg tablet 1 tab PO BEDTIME meclizine 25 mg tablet 25 mg PO DAILY PRN (Reason: dizziness) Qty: 6 0RF ketorolac 10 mg tablet 10 mg PO TID PRN (Reason: pain) 5 Days Qty: 10 0RF phenazopyridine [Pyridium] 100 mg tablet 200 mg PO TID 2 Days Qty: 6 0RF nystatin 100,000 unit/gram powder 1 appl topical DAILY Qty: 15 0RF Referrals: Maribel Marquez NP [Primary Care Provider] - 1 week Interventions: [place]-Suicide Risk Severity Scale Last Done: 02/25/23 14:17 ED Discharge Assessment Last Done: 02/25/23 14:17 Discharge Date/Time: 02/25/23 14:18
[2023-02-25 13:09] VITALS: BMI 36.6
--- NOTE | 2023-02-25 14:09 | MHC.CARE ---
CARE Team met with the pt and she stated that she freaked out because it's mother's day and she misses her mother. Pt stated that she had thoughts of suicide to join her mother and that is why she called EMS to bring her into [facility] ED POD. Pt now states that she is fine and that she is no longer feeling like she will hurt herself. Pt stated that she knows that it won't help her to be in the hospital. She wants to return home, listen to music, and clean her room. Pt is requesting a phone call to check in with her later on in the day. CARE Team agreed to the check in call later this afternoon/evening. CARE Team spoke with TIMI Christian who agreed to dc the pt. CARE Team will arrange a Lyft for the pt once she is changed over.
== END 2023-02-25 14:18 | disposition home or self-care (01) ==
PROVIDERS: Emergency Provider Emergency Medicine; PCP Nurse Practitioner Family
DX: F33.1 Major depressive disorder, recurrent, moderate (principal); R45.851 Suicidal ideations; F60.9 Personality disorder, unspecified; I10 Essential (primary) hypertension; F17.210 Nicotine dependence, cigarettes, uncomplicated; Z71.6 Tobacco abuse counseling; Z79.899 Other long term (current) drug therapy
CPT/HCPCS: 99283

== ENCOUNTER 2023-03-03 15:26 | Emergency (ER) | payer MEDICARE, MEDICAID, SELFPAY ==
[2023-03-03 15:30] VITALS: BP 138/82; BP 142/88; PULSE 110; PULSE 97; RESP 16; TEMP 36.2; O2SAT 95; O2SAT 96; BMI 32.2
--- NOTE | 2023-03-03 15:36 | ED_ITS ---
HPI - General Adult General Chief complaint: Psychiatric Symptoms Stated complaint: AUD ROLAND TO HARM SELF FROM [facility] PER EMS Time Seen by Provider: 03/03/23 15:35 Source: patient and EMS Mode of arrival: EMS Limitations: no limitations History of Present Illness HPI narrative: Patient is a 47 year old assigned female at with a history of MDD presenting to the emergency department today with increased auditory hallucinations. Patient states that she has been hearing more voices lately. Patient denies any dizziness, lightheadedness, abdominal pain, nausea, vomiting, fever, chills, blurry vision, double vision, loss of vision, chest pain, difficulty breathing, shortness of breath, back pain, night sweats, pain with urination, increased urinary frequency, increased urinary urgency, blood in her urine or stool, syncope or a near syncopal episode, recent trauma or falls, bowel incontinence, bladder incontinence, bowel retention, bladder retention, or any other complaints at this time. Relieving factors: none Exacerbating factors: none Associated symptoms: denies other symptoms Treatments prior to arrival: none Related Data Home Medications Medication Instructions Recorded Confirmed atorvastatin 10 mg tablet 10 mg PO BEDTIME 05/29/21 03/03/23 metformin 500 mg tablet 1 tab PO BID 05/29/21 03/03/23 montelukast 10 mg tablet 1 tab PO BEDTIME 05/29/21 03/03/23 lisinopril 5 mg tablet 1 tab PO DAILY 07/30/22 03/03/23 nicotine (polacrilex) 4 mg gum 1 ea PO Q2H PRN Smoking Cessation 07/30/22 02/12/23 trazodone 150 mg tablet 1 tab PO BEDTIME 09/23/22 03/03/23 benztropine 1 mg tablet 1 mg PO BID 12/19/22 03/03/23 ferrous sulfate 325 mg (65 mg 325 mg PO DAILY 12/19/22 03/03/23 iron) tablet albuterol sulfate 90 mcg/actuation 2 puff inhalation Q4-6H PRN 12/24/22 02/12/23 aerosol inhaler (Ventolin HFA) Shortness Of Breath Or Wheezing chlorpromazine 50 mg tablet 1 tab PO TID PRN Agitation 12/24/22 03/03/23 fluoxetine 40 mg capsule 2 cap PO DAILY 12/24/22 03/03/23 fluphenazine HCl 5 mg tablet 1 tab PO BID 12/24/22 03/03/23 mirtazapine 15 mg tablet 0.5 tab PO DAILY 12/24/22 03/03/23 pantoprazole 40 mg tablet,delayed 1 tab PO DAILY@0630 12/24/22 03/03/23 release Previous Rx's Medication Instructions Recorded prazosin 1 mg capsule 4 mg PO BEDTIME 30 days #120 caps 10/18/21 ketorolac 10 mg tablet 10 mg PO TID PRN pain 5 days #10 01/24/23 tabs meclizine 25 mg tablet 25 mg PO DAILY PRN dizziness #6 01/24/23 tabs phenazopyridine 100 mg tablet 200 mg PO TID 2 days #6 tabs 01/24/23 (Pyridium) nystatin 100,000 unit/gram topical 1 appl topical DAILY #15 grams 02/17/23 powder Allergies Allergy/AdvReac Type Severity Reaction Status Date / Time Fish Containing Products Allergy Severe ANAPHYLAXIS Verified 03/03/23 16:23 codeine [Codeine] Allergy Intermediate RASH Verified 03/03/23 16:23 Penicillins Allergy Intermediate RASH Verified 03/03/23 16:23 prednisone [Prednisone] Allergy Intermediate RASH Verified 03/03/23 16:23 Sulfa (Sulfonamide Allergy Intermediate RASH Verified 03/03/23 16:23 Antibiotics) [Sulfa (Sulfonamides)] azithromycin [AZITHROMYCIN] AdvReac Severe RASH Verified 03/03/23 16:23 ziprasidone [From Geodon] AdvReac Intermediate dysuria, Verified 03/03/23 16:23 rash Review of Systems Constitutional: Constitutional: Reports no additional constitutional complaints, Denies chills, Denies fever(s) and Denies night sweats Eyes: Eyes: Reports no additional eye complaints, Denies blurry vision, Denies change in vision, Denies diplopia, Denies eye discharge, Denies loss of vision and Denies eye pain ENT: Denies dizziness Cardiovascular: Cardiovascular: Reports no additional cardiovascular complaints, Denies chest pain, Denies lightheadedness, Denies Loss of Consciousness and Denies dyspnea Respiratory: Respiratory: Reports no additional respiratory complaints and Denies dyspnea Gastrointestinal: Gastrointestinal: Reports no additional gastrointestinal complaints, Denies abdominal pain, Denies melena, Denies hematochezia, Denies change in bowel habits and Denies change in stool character Genitourinary: Genitourinary: Denies hematuria, Denies urinary frequency, Denies dysuria, Denies urinary incontinence, Denies urinary hesitancy and Denies urinary urgency Musculoskeletal: Musculoskeletal: Reports no additional musculoskeletal complaints, Denies numbness and Denies tingling Neurologic: Denies dizziness, Denies loss of vision, Denies numbness and Denies tingling Psychiatric: Psychiatric: Reports no additional psychiatric complaints and Reports auditory hallucinations Endocrine: Endocrine: Reports no additional endocrine complaints Hematologic/Lymphatic: Hematologic/Lymphatic: Reports no additional hematologic/lymphatic complaints Allergic/Immunologic: Allergic/Immunologic: Reports no additional allergic/immunologic complaints [facility] Past Medical History Attestation statement: The following information was validated with the patient. 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: Other Household Members Other:: [facility] Housing: Other Housing Other:: [facility] Do you presently have visiting nurse or other home services: No Unable to assess alcohol history related to: Unknown Alcohol intake: never Patient Tobacco Use Status: Current everyday Tobacco user Tobacco use type: Cigarette Cigarette Packs Per Day: 1 Cigarettes Per Day: 16 Years Smoked: 20 Smoked in Last 30 Days: Yes e-Cigarette/Vaping Use: Never Used Use of substances other than those prescribed or required for medical reasons: No Substance Use Type: Marijuana and Caffiene Substance Use Frequency: Chronic Longstanding Last Used Substance: Just Prior to Admission Any prior treatment program specific to substance use: No Advance Directives: No Advance Directives Information Provided: Yes Patient : No service: No Current occupational status: unemployed and disabled Sexual orientation: Don't Know Physical Exam ED Vital Signs: Vital Signs - 24 hr 03/03/23 15:30 Temperature 97.1 F Pulse Rate 110 H Respiratory Rate 16 Blood Pressure 142/88 H Pulse Oximetry 96 Oxygen Delivery Method Room Air BMI result Body Mass Index 32.2 Const General: cooperative, no acute distress, alert and awake Nutritional Appearance: well nourished Orientation/consciousness: patient oriented x3 Limitations: no limitations HENMT Head: Yes normal to inspection and Yes atraumatic Ears: hearing grossly normal bilaterally and external ears normal General nose exam: Normal external nose present, no nasal discharge noted and no epistaxis Face and sinus: Yes normal facial exam, No abrasion and No laceration Mouth: Normal oral and palatal mucosa present, no drooling and no muffled voice Eyes General: appearance normal, both eyes and all related structures Periorbital: periorbital findings normal Eyelids: Yes eyelids normal Conjunctivae: conjunctivae normal Pupils: Equal, round and reactive pupils present EOM: EOMs intact bilaterally Neck Neck: Yes normal visual inspection, Yes full ROM and Yes no lymphadenopathy Chest Chest palpation & inspection: normal inspection of the chest Resp Effort & Inspection: normal respiratory effort and able to speak in complete sentences GI Inspection: Yes normal to inspection Neuro General: patient oriented x3 and moves all extremities Cranial nerves: Yes Equal, round and reactive pupils present Cognition (Neuro): normal cognition Motor exam (neuro): 5/5 motor strength present throughout Sensory Exam: Normal double simultaneous stimulation for sensation Coordination: [id number] test normal Extrem General: Yes normal to inspection, Yes full ROM and Yes capillary refill normal Psych Appearance: grossly normal Mental Status: mental status grossly normal Affect: normal affect Attitude: cooperative Thought process: Normal thought process present Thought content: Normal thought content present Insight: Good insight present (Psych) Course Reevaluation(s) Reevaluation #1: Patient is seen by the care team and cleared for discharge Time: 18:32 Medications Administered Discontinued Medications Generic Name Dose Route Start Last Admin Trade Name Elmer PRN Reason Stop Dose Admin Nicotine 21 mg 03/03/23 16:50 03/03/23 17:05 Nicotine 21 Mg Patch.Td24 TRANSDERMA 03/03/23 16:51 Not Given ONCE ONE Nicotine 21 mg 03/03/23 16:51 03/03/23 17:04 Nicotine 21 Mg Patch.Td24 TRANSDERMA 03/03/23 16:52 21 mg ONCE ONE Administration Medical Decision Making Medical Decision Making MDM Narrative: Patient is a 47 year old assigned female at with a history of MDD presen ting to the emergency department today with worsening auditory hallucinations. Patient's physical exam was unremarkable. Patient's urine showed no acute process. Patient is expressing the desire to go home and states that she is not a harm to herself or others. CARE team evaluated the patient and agreed with plan to discharge. I explained my physical exam findings as well as all test results to the patient. I answered all questions asked by the patient. I stressed the importance of the patient taking her medication as prescribed. I stressed the importance of the patient following up with her primary care provider. I stressed the importance of the patient returning to the emergency department immediately if her symptoms were to worsen or if she were to develop any dizziness, shortness of breath, difficulty breathing, chest pain, blurry vision, loss of vision, nausea, vomiting, abdominal pain, fever, chills, back pain, or any other complaints. Patient verbalized agreement and understanding with this treatment plan and discharge. Differential Diagnosis Differential Diagnoses: The differential diagnosis associated with the pr esentation includes MDD, auditory hallucinations Consult Healthcare Provider Management of the patient was discussed with: Behavioral Health Provider (spoke with CARE team as noted in the MDM portion of this chart) Lab Data [facility] Lab Attestation statement: I reviewed the patient's lab results. Labs: Lab Results 03/03/23 03/03/23 03/03/23 Range/Units 17:12 17:12 17:13 Urine Color RED Urine Appearance Turbid Urine pH 6.0 (5.0-9.0) Ur Specific [place] <= 1.005 (1.005-1.025) Urine Protein 100 (2+) H (Neg-Trace) mg/dL Urine Glucose (UA) Negative (Negative) mg/dL Urine Ketones Negative (Negative) mg/dL Urine Blood Large (3+) H (Negative) Urine Nitrite Negative (Negative) Ur Leukocyte Esterase Small (1+) H (Negative) Urine RBC >20 H (0-2) /HPF Urine WBC 6-10 (0-5) /HPF Ur Squamous Epith Cells 6-10 (0-2) /HPF Urine Bacteria None Seen (None Seen) Hyaline Casts 0-2 (0-2) /LPF Urine Test (NEGATIVE) Urine Opiates Screen Not Detected (Not Detect) Urine Fentanyl Screen Not Detected (Not Detect) Ur Barbiturates Screen Not Detected (Not Detect) Ur Phencyclidine Scrn Not Detected (Not Detect) Ur Amphetamines Screen Not Detected (Not Detect) U Benzodiazepines Scrn Not Detected (Not Detect) Urine Cocaine Screen Not Detected (Not Detect) U Marijuana (THC) Screen Not Detected (Not Detect) COVID-19 (NICK) Negative (Negative) COVIDLien Enforcement See Note 03/03/23 Range/Units 17:13 Urine Color Urine Appearance Urine pH (5.0-9.0) Ur Specific [place] (1.005-1.025) Urine Protein (Neg-Trace) mg/dL Urine Glucose (UA) (Negative) mg/dL Urine Ketones (Negative) mg/dL Urine Blood (Negative) Urine Nitrite (Negative) Ur Leukocyte Esterase (Negative) Urine RBC (0-2) /HPF Urine WBC (0-5) /HPF Ur Squamous Epith Cells (0-2) /HPF Urine Bacteria (None Seen) Hyaline Casts (0-2) /LPF Urine Test NEGATIVE (NEGATIVE) Urine Opiates Screen (Not Detect) Urine Fentanyl Screen (Not Detect) Ur Barbiturates Screen (Not Detect) Ur Phencyclidine Scrn (Not Detect) Ur Amphetamines Screen (Not Detect) U Benzodiazepines Scrn (Not Detect) Urine Cocaine Screen (Not Detect) U Marijuana (THC) Screen (Not Detect) COVID-19 (NICK) (Negative) COVID-[employer] Independent Historian Clinical information obtained from an independent historian. History obtained from or confirmed by: EMS Critical Care Time Critical Care Time Critical Care Time: Yes Total Critical Care Time: 30 Attestation: I spent 30 minutes of Critical Care Time with this patient. This does not in clude time spent on separately reported billable procedures. Discharge Plan Discharge Clinical Impression: Auditory hallucination Patient Disposition: Home, Self-Care Instructions: Hallucinations (ED) Additional Instructions: Follow up with your primary care provider. Return to the emergency department immediately if your symptoms worsen or if you develop any dizziness, shortness of breath, difficulty breathing, chest pain, blurry vision, loss of vision, nausea, vomiting, abdominal pain, fever, chills, back pain, or any other complaints. Prescriptions: No Action metformin 500 mg tablet 1 tab PO BID atorvastatin 10 mg tablet 10 mg PO BEDTIME montelukast 10 mg tablet 1 tab PO BEDTIME nicotine (polacrilex) 4 mg gum 1 ea PO Q2H PRN (Reason: Smoking Cessation) lisinopril 5 mg tablet 1 tab PO DAILY ferrous sulfate 325 mg (65 mg iron) Tablet 325 mg PO DAILY benztropine [Cogentin] 1 mg Tablet 1 mg PO BID fluoxetine 40 mg capsule 2 cap PO DAILY pantoprazole 40 mg tablet,delayed release (DR/EC) 1 tab PO DAILY@0630 mirtazapine 15 mg tablet 0.5 tab PO DAILY albuterol sulfate [Ventolin HFA] 90 mcg/actuation HFA aerosol inhaler 2 puff inhalation Q4-6H PRN (Reason: Shortness Of Breath Or Wheezing) fluphenazine HCl 5 mg tablet 1 tab PO BID chlorpromazine 50 mg tablet 1 tab PO TID PRN (Reason: Agitation) prazosin 1 mg Capsule 4 mg PO BEDTIME 30 Days Qty: 120 0RF Protocol: Hold for SBP< HOLD for SBP < : 90 trazodone 150 mg tablet 1 tab PO BEDTIME meclizine 25 mg tablet 25 mg PO DAILY PRN (Reason: dizziness) Qty: 6 0RF ketorolac 10 mg tablet 10 mg PO TID PRN (Reason: pain) 5 Days Qty: 10 0RF phenazopyridine [Pyridium] 100 mg tablet 200 mg PO TID 2 Days Qty: 6 0RF nystatin 100,000 unit/gram powder 1 appl topical DAILY Qty: 15 0RF Referrals: [facility] Family Medicine [Provider Group] (Call to establish and follow up with a primary care provider. If you already have a primary care provider, please follow up with them.) [facility] [Provider Group] (Call to establish and follow up with a primary care provider. If you already have a primary care provider, please follow up with them.) [facility] [Provider Group] (Call to establish and follow up with a primary care provider. If you already have a primary care provider, please follow up with them.) Interventions: [place]-Suicide Risk Severity Scale Last Done: 03/03/23 16:25 ED Discharge Assessment Last Done: 03/03/23 18:34 Print Language: Azeri
--- NOTE | 2023-03-03 16:34 | PC.NURSE ---
call to [facility] for med list to be faxed. Left message.
[2023-03-03] MEDS: Nicotine 21 MG PATCH.TD24 TRANSDERMA (17:04)
[2023-03-03 17:24] LABS: Appearance Urine Turbid; Color Urine RED; Glucose Urine UA Negative (Negative); Leukocyte Esterase Urine Small (1+) (Negative); Nitrite Urine Negative (Negative); Specific Gravity - Urine <= 1.005 (1.005-1.025); UMIC TRIGGER UACC YES; Urine Blood Large (3+) (Negative); Urine Ketones Negative (Negative); Urine Protein 100 (2+) mg/dL (Neg-Trace)
[2023-03-03 17:26] LABS: UPreg QC Valid YES; Urine Pregnancy NEGATIVE (NEGATIVE)
[2023-03-03 17:33] LABS: Amphetamine Screen Urine Not Detected (Not Detect); Barbiturates, Urine Not Detected (Not Detect); Benzodiazepines Screen Urine Not Detected (Not Detect); Cannabinoid Screen Urine Not Detected (Not Detect); Cocaine Screen Urine Not Detected (Not Detect); Fentanyl, urine Not Detected (Not Detect); Opiate Screen Urine Not Detected (Not Detect); Phencyclidine Screen Urine Not Detected (Not Detect)
[2023-03-03 17:40] LABS: IDNOW Serial# 08D9AD1C
[2023-03-03 17:41] LABS: COVID-19 Test Negative (Negative)
[2023-03-03 18:01] LABS: Bacteria Urine None Seen (None Seen); Hyaline Casts Urine 0-2 /LPF (0-2); RBC Urine >20 /HPF (0-2); UACC Culture Trigger YES
== END 2023-03-03 18:46 | disposition home or self-care (01) ==
PROVIDERS: Internal Medicine; Physician Assistant Medical; Emergency Provider Emergency Medicine Emergency Medical Services
DX: R44.0 Auditory hallucinations (principal); Z20.822 Contact with and (suspected) exposure to COVID-19; R45.851 Suicidal ideations; F60.3 Borderline personality disorder; F31.9 Bipolar disorder, unspecified; F41.9 Anxiety disorder, unspecified; E11.9 Type 2 diabetes mellitus without complications; E78.5 Hyperlipidemia, unspecified; D64.9 Anemia, unspecified; E66.9 Obesity, unspecified; Z68.43 Body mass index [BMI] 50.0-59.9, adult; F17.210 Nicotine dependence, cigarettes, uncomplicated; F12.90 Cannabis use, unspecified, uncomplicated; Z91.51 Personal history of suicidal behavior; Z91.52 Personal history of nonsuicidal self-harm; F43.10 Post-traumatic stress disorder, unspecified; Z79.84 Long term (current) use of oral hypoglycemic drugs; Z79.899 Other long term (current) drug therapy; Z79.02 Long term (current) use of antithrombotics/antiplatelets
CPT/HCPCS: 80307; 81001; 81025; 87086; 87635; 99284

== ENCOUNTER 2023-03-04 15:15 | Emergency (ER) | payer MEDICARE, MEDICAID, SELFPAY ==
[2023-03-04 15:19] VITALS: RESP 18; TEMP 36.2; O2SAT 97; BMI 37.4
--- NOTE | 2023-03-04 15:45 | ED_ITS ---
HPI - Psych General Chief Complaint: Psychiatric Symptoms Stated Complaint: HEARING VOICES,MULTI PANIC ATTACKS TODAY Time Seen by Provider: 03/04/23 15:32 Source: patient and EMS Mode of arrival: EMS Limitations: no limitations History of Present Illness HPI Narrative: 47 yo female with significant psychiatric history including multiple SI attempts, PTSD, borderline personality disorder, major depressive disorder, hyperlipidemia, GERD and type 2 diabetes, who presents to the ED from her senior living with complaints of anxiety, hearing voices, suicidal thoughts with plan to cut her wrists. No SI. DID not take any medications to harm herself. No substance use.? Related Data Home Medications Medication Instructions Recorded Confirmed atorvastatin 10 mg tablet 10 mg PO BEDTIME 05/29/21 03/03/23 metformin 500 mg tablet 1 tab PO BID 05/29/21 03/03/23 montelukast 10 mg tablet 1 tab PO BEDTIME 05/29/21 03/03/23 lisinopril 5 mg tablet 1 tab PO DAILY 07/30/22 03/03/23 nicotine (polacrilex) 4 mg gum 1 ea PO Q2H PRN Smoking Cessation 07/30/22 02/12/23 trazodone 150 mg tablet 1 tab PO BEDTIME 09/23/22 03/03/23 benztropine 1 mg tablet 1 mg PO BID 12/19/22 03/03/23 ferrous sulfate 325 mg (65 mg 325 mg PO DAILY 12/19/22 03/03/23 iron) tablet albuterol sulfate 90 mcg/actuation 2 puff inhalation Q4-6H PRN 12/24/22 02/12/23 aerosol inhaler (Ventolin HFA) Shortness Of Breath Or Wheezing chlorpromazine 50 mg tablet 1 tab PO TID PRN Agitation 12/24/22 03/03/23 fluoxetine 40 mg capsule 2 cap PO DAILY 12/24/22 03/03/23 fluphenazine HCl 5 mg tablet 1 tab PO BID 12/24/22 03/03/23 mirtazapine 15 mg tablet 0.5 tab PO DAILY 12/24/22 03/03/23 pantoprazole 40 mg tablet,delayed 1 tab PO DAILY@0630 12/24/22 03/03/23 release Previous Rx's Medication Instructions Recorded prazosin 1 mg capsule 4 mg PO BEDTIME 30 days #120 caps 10/18/21 ketorolac 10 mg tablet 10 mg PO TID PRN pain 5 days #10 01/24/23 tabs meclizine 25 mg tablet 25 mg PO DAILY PRN dizziness #6 01/24/23 tabs phenazopyridine 100 mg tablet 200 mg PO TID 2 days #6 tabs 01/24/23 (Pyridium) nystatin 100,000 unit/gram topical 1 appl topical DAILY #15 grams 02/17/23 powder Allergies Allergy/AdvReac Type Severity Reaction Status Date / Time Fish Containing Products Allergy Severe ANAPHYLAXIS Verified 03/03/23 16:23 codeine [Codeine] Allergy Intermediate RASH Verified 03/03/23 16:23 Penicillins Allergy Intermediate RASH Verified 03/03/23 16:23 prednisone [Prednisone] Allergy Intermediate RASH Verified 03/03/23 16:23 Sulfa (Sulfonamide Allergy Intermediate RASH Verified 03/03/23 16:23 Antibiotics) [Sulfa (Sulfonamides)] azithromycin [AZITHROMYCIN] AdvReac Severe RASH Verified 03/03/23 16:23 ziprasidone [From Geodon] AdvReac Intermediate dysuria, Verified 03/03/23 16:23 rash Review of Systems Review of Systems: Yes all other systems are reviewed and are negative Constitutional: Constitutional: Reports no additional constitutional complaints, Denies body ache(s), Denies chills, Denies fever(s), Denies headache(s) and Denies weakness Eyes: Eyes: Reports no additional eye complaints and Denies change in vision ENT: Reports system reviewed and no additional complaints, except as documented, Denies dizziness, Denies headache(s), Denies nasal congestion, Denies nasal discharge and Denies neck pain Cardiovascular: Cardiovascular: Reports no additional cardiovascular complaints, Denies chest pain, Denies leg edema and Denies dyspnea Respiratory: Respiratory: Reports no additional respiratory complaints, Denies cough and Denies dyspnea Gastrointestinal: Gastrointestinal: Reports no additional gastrointestinal complaints, Denies abdominal pain, Denies diarrhea, Denies nausea and Denies vomiting Genitourinary: Genitourinary: Reports no additional female genitourinary complaints and Denies urinary incontinence Musculoskeletal: Musculoskeletal: Reports no additional musculoskeletal complaints, Denies back pain, Denies arthralgias, Denies joint swelling, Denies neck pain, Denies numbness and Denies tingling Integumentary/Breasts: Skin/Breast: Reports system reviewed and no additional complaints, except as docu and Denies rash Neurologic: Reports system reviewed and no additional complaints, except as documented, Denies Abnormal speech present, Denies dizziness, Denies headache(s), Denies numbness, Denies tingling and Denies weakness Psychiatric: Psychiatric: Reports anxiety, Reports hallucinations and Reports suicidal ideation [facility] Past Medical History Attestation statement: The following information was validated with the patient. 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: Other Household Members Other:: senior living Housing: Other Housing Other:: senior living Do you presently have visiting nurse or other home services: No Unable to assess alcohol history related to: Unknown Alcohol intake: never Patient Tobacco Use Status: Current everyday Tobacco user Tobacco use type: Cigarette Cigarette Packs Per Day: 1 Cigarettes Per Day: 16 Years Smoked: 20 e-Cigarette/Vaping Use: Never Used Substance Use Type: Marijuana and Caffiene service: No Current occupational status: unemployed and disabled Sexual orientation: Don't Know Physical Exam Vital Signs: Vital Signs: Last Vital Signs Temp 97.2 F 03/04/23 15:19 Resp 18 03/04/23 15:19 Pulse Ox 97 03/04/23 15:19 O2 Del Method Room Air 03/04/23 15:19 BMI result Body Mass Index 37.4 Const: General: cooperative, healthy appearing, comfortable and no acute distress Orientation/consciousness: patient oriented x3 Limitations: no limitations HEENT: Head: Yes normal to inspection Ears: hearing grossly normal bilaterally General nose exam: Normal external nose present Face and sinus: Yes normal facial exam Mouth: Normal oral and palatal mucosa present Throat: Yes posterior oropharynx normal Eyes: General: appearance normal, both eyes and all related structures Pupils: Equal, round and reactive pupils present Neck: Neck: Yes normal visual inspection Chest: Chest palpation & inspection: normal inspection of the chest Resp: Effort & Inspection: normal respiratory effort Auscultation: clear to auscultation bilaterally Cardio: Rate: regular rate Rhythm: regular rhythm Peripheral pulses: Peripheral pulses 2+ throughout GI: Inspection: Yes normal to inspection Palpation (GI): Soft to palpation and nontender Auscultation: normal bowel sounds Back/Spine/Pelvis: Thoracic/Lumbar Spine: thoracic and lumbar spine normal to inspection Skin: General skin exam: no rashes or lesions noted Neuro: General: patient oriented x3, no focal motor deficits and normal sensation to monofilament Cranial nerves: Yes Equal, round and reactive pupils present Cognition (Neuro): normal cognition Speech: No Abnormal speech present Gait exam (Neuro): Normal gait present Motor exam (neuro): 5/5 motor strength present throughout Extrem: General: Yes normal to inspection Medications Administered Discontinued Medications Generic Name Dose Route Start Last Admin Trade Name Freq PRN Reason Stop Dose Admin Lorazepam 2 mg 03/04/23 15:42 03/04/23 15:46 Lorazepam 1 Mg Tablet PO 03/04/23 15:43 2 mg ONCE STA Administration Medical Decision Making Medical Decision Making [facility] Narrative: 47 yo female with significant psychiatric history including multiple SI attempts, PTSD, borderline personality disorder, major depressive disorder, hyperlipidemia, GERD and type 2 diabetes, who presents to the ED from her senior living with anxiety, suicidal thoughts, hearing voices. No concern for acute ingestion or trauma. Will obtain care team consultation. Differential Diagnosis Differential Diagnoses: The differential diagnosis associated with the presentation includes Depression, borderline personality disorder, adjustment disorder Lab Data [facility] Lab Attestation statement: I reviewed the patient's lab results. Discharge Plan Discharge Clinical Impression: Borderline personality disorder Patient Disposition: Still a Patient Prescriptions: No Action metformin 500 mg tablet 1 tab PO BID atorvastatin 10 mg tablet 10 mg PO BEDTIME montelukast 10 mg tablet 1 tab PO BEDTIME nicotine (polacrilex) 4 mg gum 1 ea PO Q2H PRN (Reason: Smoking Cessation) lisinopril 5 mg tablet 1 tab PO DAILY ferrous sulfate 325 mg (65 mg iron) Tablet 325 mg PO DAILY benztropine [Cogentin] 1 mg Tablet 1 mg PO BID fluoxetine 40 mg capsule 2 cap PO DAILY pantoprazole 40 mg tablet,delayed release (DR/EC) 1 tab PO DAILY@0630 mirtazapine 15 mg tablet 0.5 tab PO DAILY albuterol sulfate [Ventolin HFA] 90 mcg/actuation HFA aerosol inhaler 2 puff inhalation Q4-6H PRN (Reason: Shortness Of Breath Or Wheezing) fluphenazine HCl 5 mg tablet 1 tab PO BID chlorpromazine 50 mg tablet 1 tab PO TID PRN (Reason: Agitation) prazosin 1 mg Capsule 4 mg PO BEDTIME 30 Days Qty: 120 0RF Protocol: Hold for SBP< HOLD for SBP < : 90 trazodone 150 mg tablet 1 tab PO BEDTIME meclizine 25 mg tablet 25 mg PO DAILY PRN (Reason: dizziness) Qty: 6 0RF ketorolac 10 mg tablet 10 mg PO TID PRN (Reason: pain) 5 Days Qty: 10 0RF phenazopyridine [Pyridium] 100 mg tablet 200 mg PO TID 2 Days Qty: 6 0RF nystatin 100,000 unit/gram powder 1 appl topical DAILY Qty: 15 0RF Interventions: [place]-Suicide Risk Severity Scale Last Done: 03/04/23 15:41
[2023-03-04] MEDS: LORazepam 1 MG TABLET 2 MG PO (15:46)
[2023-03-04 16:58] VITALS: BP 134/89; PULSE 97; RESP 20; O2SAT 96
[2023-03-04] MEDS: Nicotine 21 MG PATCH.TD24 TRANSDERMA (17:02)
[2023-03-04 17:19] LABS: Appearance Urine Clear; Color Urine Other
[2023-03-04 17:20] LABS: Glucose Urine UA Negative (Negative); Specific Gravity - Urine < 1.005 (1.005-1.025); Urine Blood Large (3+) (Negative)
[2023-03-04 17:21] LABS: Leukocyte Esterase Urine Trace (Negative); Nitrite Urine Negative (Negative); UMIC TRIGGER UACC YES; Urine Ketones Negative (Negative); Urine Protein Trace mg/dL (Neg-Trace)
[2023-03-04 17:22] LABS: Bacteria Urine None Seen (None Seen); Hyaline Casts Urine 0-2 /LPF (0-2); RBC Urine >20 /HPF (0-2); Squamous Epithelial Cell Urine 0-2 /HPF (0-2); WBC Urine 0-5 /HPF (0-5)
[2023-03-04 17:31] LABS: COVID-19 Test Negative (Negative); IDNOW Serial# 08D9AD1C
[2023-03-04 17:36] LABS: Amphetamine Screen Urine Not Detected (Not Detect); Barbiturates, Urine Not Detected (Not Detect); Benzodiazepines Screen Urine Not Detected (Not Detect); Cannabinoid Screen Urine Not Detected (Not Detect); Cocaine Screen Urine Not Detected (Not Detect); Fentanyl, urine Not Detected (Not Detect); Opiate Screen Urine Not Detected (Not Detect); Phencyclidine Screen Urine Not Detected (Not Detect)
--- NOTE | 2023-03-04 19:11 | PC.NURSE ---
report received from WALKER Jarquin Pt is wandering around pod, no apparent distress at this time. This RN spoke with patient who states she would like to go home. she believes she has enough support around her that she can go home safely without feeling like harming herself. Pt reports that tomorrow, she is going to spend time with her friend and she has day program. Sunday she has time with her para who she confides in as well
[2023-03-04 19:28] VITALS: BP 146/85; PULSE 95; RESP 20; TEMP 36.2; O2SAT 95
== END 2023-03-04 19:45 | disposition home or self-care (01) ==
PROVIDERS: Internal Medicine; Emergency Provider Emergency Medicine Emergency Medical Services
DX: F60.3 Borderline personality disorder (principal); R44.0 Auditory hallucinations; R45.851 Suicidal ideations; E11.9 Type 2 diabetes mellitus without complications; F12.10 Cannabis abuse, uncomplicated; F17.210 Nicotine dependence, cigarettes, uncomplicated; Z20.822 Contact with and (suspected) exposure to COVID-19; Z20.828 Contact with and (suspected) exposure to other viral communicable diseases; Z71.6 Tobacco abuse counseling; Z79.84 Long term (current) use of oral hypoglycemic drugs; Z79.899 Other long term (current) drug therapy
CPT/HCPCS: 80307; 81001; 87635; 99285

== ENCOUNTER 2023-03-05 20:03 | Emergency (ER) | payer MEDICARE, MEDICAID, SELFPAY ==
[2023-03-05 20:09] VITALS: BP 157/100; PULSE 98; RESP 18; TEMP 36.4; O2SAT 97; BMI 36.3
--- NOTE | 2023-03-05 20:13 | ED.OVERDOSE ---
HPI - Overdose General Chief Complaint: Psychiatric Symptoms Stated Complaint: hearing voices Source: patient Mode of arrival: EMS Limitations: no limitations History of Present Illness HPI Narrative: Patient's history of previous suicide attempt depression PTSD bipolar disorder been here multiple times discharged yesterday comes here as after she discharged she took small amount of febreeze and nail [place] removal and leave in conditioner last night also and today also just prior to arrival patient was outside her house without empty bottles Related Data Home Medications Medication Instructions Recorded Confirmed trazodone 150 mg tablet 1 tab PO BEDTIME 09/23/22 03/05/23 benztropine 1 mg tablet 1 mg PO BID 12/19/22 03/05/23 ferrous sulfate 325 mg (65 mg 325 mg PO DAILY 12/19/22 03/05/23 iron) tablet albuterol sulfate 90 mcg/actuation 2 puff inhalation Q4-6H PRN 12/24/22 03/05/23 aerosol inhaler (Ventolin HFA) Shortness Of Breath Or Wheezing chlorpromazine 50 mg tablet 1 tab PO TID PRN Agitation 12/24/22 03/05/23 fluoxetine 40 mg capsule 2 cap PO DAILY 12/24/22 03/05/23 fluphenazine HCl 5 mg tablet 1 tab PO BID 12/24/22 03/05/23 atorvastatin 10 mg tablet 10 mg PO BEDTIME 03/05/23 03/05/23 lactulose 10 gram/15 mL oral 30 ml PO BID PRN Constipation 03/05/23 03/05/23 solution lisinopril 5 mg tablet 5 mg PO DAILY 03/05/23 03/05/23 metformin 500 mg tablet 500 mg PO BIDWM 03/05/23 03/05/23 mirtazapine 15 mg tablet 7.5 mg PO BEDTIME 03/05/23 03/05/23 montelukast 10 mg tablet 10 mg PO BEDTIME 03/05/23 03/05/23 nystatin 100,000 unit/gram topical 1 appl topical BID 03/05/23 03/05/23 powder pantoprazole 40 mg tablet,delayed 40 mg PO DAILY@0630 03/05/23 03/05/23 release sennosides 8.6 mg tablet (senna) 17.2 mg PO BEDTIME PRN constipation 03/05/23 03/05/23 Previous Rx's Medication Instructions Recorded prazosin 1 mg capsule 4 mg PO BEDTIME 30 days #120 caps 10/18/21 meclizine 25 mg tablet 25 mg PO DAILY PRN dizziness #6 01/24/23 tabs Allergies Allergy/AdvReac Type Severity Reaction Status Date / Time Fish Containing Products Allergy Severe ANAPHYLAXIS Verified 03/03/23 16:23 codeine [Codeine] Allergy Intermediate RASH Verified 03/03/23 16:23 Penicillins Allergy Intermediate RASH Verified 03/03/23 16:23 prednisone [Prednisone] Allergy Intermediate RASH Verified 03/03/23 16:23 Sulfa (Sulfonamide Allergy Intermediate RASH Verified 03/03/23 16:23 Antibiotics) [Sulfa (Sulfonamides)] azithromycin [AZITHROMYCIN] AdvReac Severe RASH Verified 03/03/23 16:23 ziprasidone [From Geodon] AdvReac Intermediate dysuria, Verified 03/03/23 16:23 rash Review of Systems Review of Systems: Yes all other systems are reviewed and are negative PMFSH Past Medical History Medical History Acetaminophen overdose Borderline personality disorder Bronchitis Depression Diabetes type 2, controlled Full body hives GERD (gastroesophageal reflux disease) History of attempted suicide History of non-suicidal self-harm Hyperlipidemia Hypomagnesemia Major depression MDD (major depressive disorder), recurrent episode, severe Mood disorder Overdose PTSD (post-traumatic stress disorder) Suicide attempt Suicide attempt by acetaminophen overdose Social History Social History Household Members: Other Household Members Other:: halfway Housing: Other Housing Other:: halfway Do you presently have visiting nurse or other home services: No Unable to assess alcohol history related to: Unknown Alcohol intake: never Patient Tobacco Use Status: Current everyday Tobacco user Tobacco use type: Cigarette Cigarette Packs Per Day: 1 Cigarettes Per Day: 16 Years Smoked: 20 e-Cigarette/Vaping Use: Never Used Substance Use Type: Marijuana Advance Directives: No Advance Directives Information Provided: No service: No Current occupational status: unemployed and disabled Sexual orientation: Don't Know Physical Exam Vital Signs: Vital Signs: Last Vital Signs Temp 97.6 F 03/05/23 20:09 Pulse 98 03/05/23 20:09 Resp 18 03/05/23 20:09 BP 157/100 H 03/05/23 20:09 Pulse Ox 97 03/05/23 20:09 O2 Del Method Room Air 03/05/23 20:09 BMI result Body Mass Index 36.3 Appearance: Alert. Oriented X3. No acute distress. Eyes: PERRLA, No Nystagmus ENT: Pharynx normal. Oral Mucosa moist Neck: Normal inspection. Neck supple. CVS: Normal heart rate and rhythm. Pulses normal. Respiratory: No respiratory distress. Equal air entry bilateral, no wheezing/rales/rhonchi Abdomen: Soft and nontender. Bowel sounds are present, no mass palpable, no CVA tenderness Skin: Skin warm and dry. Normal skin color. Normal skin turgor. Extremities: No lower extremity edema. No calf tenderness psych: Mood stable no SI or HI Neuro: Oriented X 3. No motor deficit. No sensory deficit.No cerebellar signs , cranial nerves II-XII intact Medical Decision Making Medical Decision Making [facility] Narrative: Patient nontoxic ingestion with suicidal feelings medically cleared for inpatient psych admission care team will evaluate the patient , patient does have a care plan Lab Data [facility] Lab Attestation statement: I reviewed the patient's lab results. 03/05/23 21:11 03/05/23 21:11 Labs: Lab Results 03/05/23 03/05/23 03/05/23 Range/Units 20:36 20:36 20:36 WBC (4.8-10.8) X10*3/uL RBC (4.20-5.50) X10*6/uL Hgb (12.0-16.0) g/dl Hct (37.0-47.0) % MCV (80.0-98.0) fL MCH (27.0-33.0) pg MCHC (31.0-35.0) g/dl RDW (11.0-16.0) % Plt Count (160-400) X10*3/uL MPV (9.4-12.3) fL Immature Gran % (Auto) (0.0-0.4) % Neut % (Auto) (45-73) % Lymph % (Auto) (20-40) % [place] % (Auto) (2-11) % Eos % (Auto) (0-4) % Baso % (Auto) (0-2) % Lymph # (Auto) (1.2-4.9) X10*3/uL [place] # (Auto) (0.1-1.2) X10*3/uL Eos # (Auto) (0.0-0.4) X10*3/uL Baso # (Auto) (0.0-0.2) X10*3/uL Abs Immat Gran (auto) (0.00-0.03) X10*3/uL Absolute Neuts (auto) (2.0-8.3) x10*3/uL Absolute Nucleated RBC (0.0-0.012) X10*3/uL Nucleated RBC % (auto) (0.0-0.2) /100WBC Sodium (135-145) mmol/L Potassium (3.3-5.1) mmol/L Chloride (96-108) mmol/L Carbon Dioxide (22-29) mmol/L Anion Gap (12-20) BUN (9-16) mg/dL Creatinine (0.5-1.4) mg/dL Estim Creat Clear Calc Estimated GFR Random Glucose (60-115) mg/dL Osmolality (281-305) mosm/kg Calcium (8.4-10.2) mg/dL Total Bilirubin (0.0-1.0) mg/dL AST (5-31) U/L ALT (0-31) U/L Alkaline Phosphatase (39-117) U/L Total Protein (6.5-8.0) g/dL Albumin (3.5-5.0) g/dL Urine Color Yellow Urine Appearance Clear Urine pH 6.0 (5.0-9.0) Ur Specific [place] <= 1.005 (1.005-1.025) Urine Protein Negative (Neg-Trace) mg/dL Urine Glucose (UA) Negative (Negative) mg/dL Urine Ketones Negative (Negative) mg/dL Urine Blood Moderate (2+) H (Negative) Urine Nitrite Negative (Negative) Ur Leukocyte Esterase Small (1+) H (Negative) Urine RBC 0-2 (0-2) /HPF Urine WBC 0-5 (0-5) /HPF Ur Squamous Epith Cells 3-5 (0-2) /HPF Urine Bacteria 1+ (None Seen) Hyaline Casts 0-2 (0-2) /LPF Salicylates (15-30) mg/dL Urine Opiates Screen Not Detected (Not Detect) Urine Fentanyl Screen Not Detected (Not Detect) Acetaminophen (<30) mcg/mL Ur Barbiturates Screen Not Detected (Not Detect) Ur Phencyclidine Scrn Not Detected (Not Detect) Ur Amphetamines Screen Not Detected (Not Detect) U Benzodiazepines Scrn Not Detected (Not Detect) Urine Cocaine Screen Not Detected (Not Detect) U Marijuana (THC) Screen Not Detected (Not Detect) Ethyl Alcohol mg/dL Acetone, Qual (Negative) COVID-19 (NICK) Negative (Negative) COVID-19 Clin Com See Note 03/05/23 03/05/23 03/05/23 Range/Units 21:11 21:11 21:11 WBC 5.6 (4.8-10.8) X10*3/uL RBC 4.41 (4.20-5.50) X10*6/uL Hgb 12.2 (12.0-16.0) g/dl Hct 38.6 (37.0-47.0) % MCV 87.5 (80.0-98.0) fL MCH 27.7 (27.0-33.0) pg MCHC 31.6 (31.0-35.0) g/dl RDW 14.5 (11.0-16.0) % Plt Count 292 (160-400) X10*3/uL MPV 9.5 (9.4-12.3) fL Immature Gran % (Auto) 0.4 (0.0-0.4) % Neut % (Auto) 56.1 (45-73) % Lymph % (Auto) 29.3 (20-40) % [place] % (Auto) 8.5 (2-11) % Eos % (Auto) 5.2 H (0-4) % Baso % (Auto) 0.5 (0-2) % Lymph # (Auto) 1.7 (1.2-4.9) X10*3/uL [place] # (Auto) 0.5 (0.1-1.2) X10*3/uL Eos # (Auto) 0.3 (0.0-0.4) X10*3/uL Baso # (Auto) 0.0 (0.0-0.2) X10*3/uL Abs Immat Gran (auto) 0.02 (0.00-0.03) X10*3/uL Absolute Neuts (auto) 3.2 (2.0-8.3) x10*3/uL Absolute Nucleated RBC 0.000 (0.0-0.012) X10*3/uL Nucleated RBC % (auto) 0.0 (0.0-0.2) /100WBC Sodium 142 (135-145) mmol/L Potassium 3.9 (3.3-5.1) mmol/L Chloride 106 (96-108) mmol/L Carbon Dioxide 25 (22-29) mmol/L Anion Gap 15 (12-20) BUN 10 (9-16) mg/dL Creatinine 0.74 (0.5-1.4) mg/dL Estim Creat Clear Calc 111.8 Estimated GFR > 60 Random Glucose 97 (60-115) mg/dL Osmolality 291 (281-305) mosm/kg Calcium 9.2 (8.4-10.2) mg/dL Total Bilirubin 0.3 (0.0-1.0) mg/dL AST 25 (5-31) U/L ALT 28 (0-31) U/L Alkaline Phosphatase 123 H (39-117) U/L Total Protein 7.3 (6.5-8.0) g/dL Albumin 4.5 (3.5-5.0) g/dL Urine Color Urine Appearance Urine pH (5.0-9.0) Ur Specific [place] (1.005-1.025) Urine Protein (Neg-Trace) mg/dL Urine Glucose (UA) (Negative) mg/dL Urine Ketones (Negative) mg/dL Urine Blood (Negative) Urine Nitrite (Negative) Ur Leukocyte Esterase (Negative) Urine RBC (0-2) /HPF Urine WBC (0-5) /HPF Ur Squamous Epith Cells (0-2) /HPF Urine Bacteria (None Seen) Hyaline Casts (0-2) /LPF Salicylates < 5.0 L (15-30) mg/dL Urine Opiates Screen (Not Detect) Urine Fentanyl Screen (Not Detect) Acetaminophen < 17 (<30) mcg/mL Ur Barbiturates Screen (Not Detect) Ur Phencyclidine Scrn (Not Detect) Ur Amphetamines Screen (Not Detect) U Benzodiazepines Scrn (Not Detect) Urine Cocaine Screen (Not Detect) U Marijuana (THC) Screen (Not Detect) Ethyl Alcohol < 10 mg/dL Acetone, Qual (Negative) COVID-19 (NICK) (Negative) COVID-19 Clin Com 03/05/23 Range/Units 21:11 WBC (4.8-10.8) X10*3/uL RBC (4.20-5.50) X10*6/uL Hgb (12.0-16.0) g/dl Hct (37.0-47.0) % MCV (80.0-98.0) fL MCH (27.0-33.0) pg MCHC (31.0-35.0) g/dl RDW (11.0-16.0) % Plt Count (160-400) X10*3/uL MPV (9.4-12.3) fL Immature Gran % (Auto) (0.0-0.4) % Neut % (Auto) (45-73) % Lymph % (Auto) (20-40) % [place] % (Auto) (2-11) % Eos % (Auto) (0-4) % Baso % (Auto) (0-2) % Lymph # (Auto) (1.2-4.9) X10*3/uL [place] # (Auto) (0.1-1.2) X10*3/uL Eos # (Auto) (0.0-0.4) X10*3/uL Baso # (Auto) (0.0-0.2) X10*3/uL Abs Immat Gran (auto) (0.00-0.03) X10*3/uL Absolute Neuts (auto) (2.0-8.3) x10*3/uL Absolute Nucleated RBC (0.0-0.012) X10*3/uL Nucleated RBC % (auto) (0.0-0.2) /100WBC Sodium (135-145) mmol/L Potassium (3.3-5.1) mmol/L Chloride (96-108) mmol/L Carbon Dioxide (22-29) mmol/L Anion Gap (12-20) BUN (9-16) mg/dL Creatinine (0.5-1.4) mg/dL Estim Creat Clear Calc Estimated GFR Random Glucose (60-115) mg/dL Osmolality (281-305) mosm/kg Calcium (8.4-10.2) mg/dL Total Bilirubin (0.0-1.0) mg/dL AST (5-31) U/L ALT (0-31) U/L Alkaline Phosphatase (39-117) U/L Total Protein (6.5-8.0) g/dL Albumin (3.5-5.0) g/dL Urine Color Urine Appearance Urine pH (5.0-9.0) Ur Specific [place] (1.005-1.025) Urine Protein (Neg-Trace) mg/dL Urine Glucose (UA) (Negative) mg/dL Urine Ketones (Negative) mg/dL Urine Blood (Negative) Urine Nitrite (Negative) Ur Leukocyte Esterase (Negative) Urine RBC (0-2) /HPF Urine WBC (0-5) /HPF Ur Squamous Epith Cells (0-2) /HPF Urine Bacteria (None Seen) Hyaline Casts (0-2) /LPF Salicylates (15-30) mg/dL Urine Opiates Screen (Not Detect) Urine Fentanyl Screen (Not Detect) Acetaminophen (<30) mcg/mL Ur Barbiturates Screen (Not Detect) Ur Phencyclidine Scrn (Not Detect) Ur Amphetamines Screen (Not Detect) U Benzodiazepines Scrn (Not Detect) Urine Cocaine Screen (Not Detect) U Marijuana (THC) Screen (Not Detect) Ethyl Alcohol mg/dL Acetone, Qual Negative (Negative) COVID-19 (NICK) (Negative) COVID-19 Clin Com Discharge Plan Discharge Clinical Impression: Suicidal ideation, Depression Patient Disposition: Still a Patient Prescriptions: No Action ferrous sulfate 325 mg (65 mg iron) Tablet 325 mg PO DAILY benztropine [Cogentin] 1 mg Tablet 1 mg PO BID fluoxetine 40 mg capsule 2 cap PO DAILY albuterol sulfate [Ventolin HFA] 90 mcg/actuation HFA aerosol inhaler 2 puff inhalation Q4-6H PRN (Reason: Shortness Of Breath Or Wheezing) fluphenazine HCl 5 mg tablet 1 tab PO BID chlorpromazine 50 mg tablet 1 tab PO TID PRN (Reason: Agitation) prazosin 1 mg Capsule 4 mg PO BEDTIME 30 Days Qty: 120 0RF Protocol: Hold for SBP< HOLD for SBP < : 90 trazodone 150 mg tablet 1 tab PO BEDTIME meclizine 25 mg tablet 25 mg PO DAILY PRN (Reason: dizziness) Qty: 6 0RF metformin 500 mg tablet 500 mg PO BIDWM atorvastatin 10 mg tablet 10 mg PO BEDTIME pantoprazole 40 mg tablet,delayed release (DR/EC) 40 mg PO DAILY@0630 montelukast 10 mg tablet 10 mg PO BEDTIME lisinopril 5 mg tablet 5 mg PO DAILY mirtazapine 15 mg tablet 7.5 mg PO BEDTIME sennosides [senna] 8.6 mg tablet 17.2 mg PO BEDTIME PRN (Reason: constipation) lactulose 10 gram/15 mL solution 30 ml PO BID PRN (Reason: Constipation) nystatin 100,000 unit/gram powder 1 appl topical BID
[2023-03-05 20:45] LABS: Appearance Urine Clear; Color Urine Yellow; Glucose Urine UA Negative (Negative); Leukocyte Esterase Urine Small (1+) (Negative); Nitrite Urine Negative (Negative); Specific Gravity - Urine <= 1.005 (1.005-1.025); UMIC TRIGGER UA YES; Urine Blood Moderate (2+) (Negative); Urine Ketones Negative (Negative); Urine Protein Negative (Neg-Trace)
[2023-03-05 20:56] LABS: Amphetamine Screen Urine Not Detected (Not Detect); Barbiturates, Urine Not Detected (Not Detect); Benzodiazepines Screen Urine Not Detected (Not Detect); Cannabinoid Screen Urine Not Detected (Not Detect); Cocaine Screen Urine Not Detected (Not Detect); Fentanyl, urine Not Detected (Not Detect); Opiate Screen Urine Not Detected (Not Detect); Phencyclidine Screen Urine Not Detected (Not Detect)
[2023-03-05 20:58] LABS: COVID-19 Test Negative (Negative); IDNOW Serial# 9DB6401D
[2023-03-05 21:00] LABS: Bacteria Urine 1+ (None Seen); Hyaline Casts Urine 0-2 /LPF (0-2); RBC Urine 0-2 /HPF (0-2); WBC Urine 0-5 /HPF (0-5)
--- NOTE | 2023-03-05 21:19 | PHA.MEDREC ---
Pharmacy Consult ? Medication Reconciliation Pharmacy has completed the medication reconciliation. Med rec completed per claim history. Will have [facility] follow up in am with [facility]. [phone]
[2023-03-05 21:22] LABS: Basophils Percent Auto 0.5 % (0-2); Eosinophils Absolute Auto 0.3 X10*3/uL (0.0-0.4); Eosinophils Percent Auto 5.2 % (0-4); Hematocrit 38.6 % (37.0-47.0); Hemoglobin 12.2 g/dl (12.0-16.0); Imm Gran Abs Auto 0.02 X10*3/uL (0.00-0.03); Imm Gran Pct Auto 0.4 % (0.0-0.4); Lymphocytes Absolute Auto 1.7 X10*3/uL (1.2-4.9); Lymphocytes Percent Auto 29.3 % (20-40); MANUAL DIFF FLAG NO; Mean Corpuscular HGB Conc 31.6 g/dl (31.0-35.0); Mean Corpuscular Hemoglobin 27.7 pg (27.0-33.0); Mean Corpuscular Volume 87.5 fL (80.0-98.0); Mean Platelet Volume 9.5 fL (9.4-12.3); Monocytes Absolute Auto 0.5 X10*3/uL (0.1-1.2); Monocytes Percent Auto 8.5 % (2-11); Neutrophils Absolute Auto 3.2 x10*3/uL (2.0-8.3); Neutrophils Percent Auto 56.1 % (45-73); Platelet Count 292 X10*3/uL (160-400); Red Blood Count 4.41 X10*6/uL (4.20-5.50); Red Cell Distribution Width 14.5 % (11.0-16.0); White Blood Count 5.6 X10*3/uL (4.8-10.8)
[2023-03-05 21:28] LABS: Acetone, serum QL Negative (Negative)
[2023-03-05 21:51] LABS: Acetaminophen LAB < 17 mcg/mL (<30); Alanine Aminotransferase 28 U/L (0-31); Albumin Level 4.5 g/dL (3.5-5.0); Alkaline Phosphatase 123 U/L (39-117); Anion Gap 15 (12-20); Aspartate Amino Transferase 25 U/L (5-31); Bilirubin Total 0.3 mg/dL (0.0-1.0); Blood Urea Nitrogen 10 mg/dL (9-16); Calcium 9.2 mg/dL (8.4-10.2); Carbon Dioxide 25 mmol/L (22-29); Chloride 106 mmol/L (96-108); Creatinine Clr Calc Pharmacy 111.8; Estimated Glomerular Filt Rate > 60; Ethanol < 10 mg/dL; Glucose Random 97 mg/dL (60-115); Potassium 3.9 mmol/L (3.3-5.1); Salicylate < 5.0 mg/dL (15-30); Sodium 142 mmol/L (135-145); Total Protein 7.3 g/dL (6.5-8.0)
[2023-03-05 21:54] LABS: Osmolality, Serum 291 mosm/kg (281-305)
--- NOTE | 2023-03-05 22:00 | MHC.CARE ---
CARE Team attempted to contact the jail [phone], multiple times and no one answered. T/W consulted with Alejandra Simeon [facility] who stated that without talking to the jail the pt could not return home. Pt will be here until the jail can be contacted.
--- NOTE | 2023-03-06 05:45 | PC.NURSE ---
Patient slept through the night, no distress observed/reported, behavior non concerning, care consult ordered/pending evaluation, med rec completed/pending provider's approval, VSS, will continue to monitor.
[2023-03-06 06:00] VITALS: BP 157/97; PULSE 78; RESP 16; TEMP 36.7; O2SAT 95
== END 2023-03-06 08:27 | disposition home or self-care (01) ==
PROVIDERS: Internal Medicine; Emergency Provider Emergency Medicine Emergency Medical Services; PCP Nurse Practitioner Family
DX: R45.851 Suicidal ideations (principal); F31.9 Bipolar disorder, unspecified; Z20.822 Contact with and (suspected) exposure to COVID-19; R44.0 Auditory hallucinations; F60.3 Borderline personality disorder; F23 Brief psychotic disorder; D64.9 Anemia, unspecified; F41.9 Anxiety disorder, unspecified; F43.10 Post-traumatic stress disorder, unspecified; E11.9 Type 2 diabetes mellitus without complications; E78.5 Hyperlipidemia, unspecified; F17.210 Nicotine dependence, cigarettes, uncomplicated; F12.90 Cannabis use, unspecified, uncomplicated; E66.9 Obesity, unspecified; Z68.43 Body mass index [BMI] 50.0-59.9, adult; Z91.51 Personal history of suicidal behavior; Z91.52 Personal history of nonsuicidal self-harm; Z79.84 Long term (current) use of oral hypoglycemic drugs; Z79.899 Other long term (current) drug therapy
CPT/HCPCS: 36415; 80053; 80143; 80179; 80307; 81001; 82009; 83930; 85025; 87635; 99285

== ENCOUNTER 2023-03-06 19:42 | Emergency (ER) | payer MEDICARE, MEDICAID, SELFPAY ==
--- NOTE | 2023-03-06 19:46 | ED_ITS ---
HPI - Psych General Chief Complaint: Psychiatric Symptoms Stated Complaint: SI,HEARING VOICES Time Seen by Provider: 03/06/23 19:44 Source: patient and EMS Mode of arrival: EMS Limitations: no limitations History of Present Illness HPI Narrative: Patient comes to the emergency room complaining of hearing voices. Patient states that earlier today the she was considering going to the pharmacy to aspirin overdose, states that she did not overdose. Related Data Home Medications Medication Instructions Recorded Confirmed trazodone 150 mg tablet 1 tab PO BEDTIME 09/23/22 03/06/23 benztropine 1 mg tablet 1 mg PO BID 12/19/22 03/06/23 ferrous sulfate 325 mg (65 mg 325 mg PO DAILY 12/19/22 03/06/23 iron) tablet albuterol sulfate 90 mcg/actuation 2 puff inhalation Q4-6H PRN 12/24/22 03/06/23 aerosol inhaler (Ventolin HFA) Shortness Of Breath Or Wheezing chlorpromazine 50 mg tablet 1 tab PO TID PRN Agitation 12/24/22 03/06/23 fluoxetine 40 mg capsule 2 cap PO DAILY 12/24/22 03/06/23 fluphenazine HCl 5 mg tablet 1 tab PO BID 12/24/22 03/06/23 atorvastatin 10 mg tablet 10 mg PO BEDTIME 03/05/23 03/06/23 lactulose 10 gram/15 mL oral 30 ml PO BID PRN Constipation 03/05/23 03/06/23 solution lisinopril 5 mg tablet 5 mg PO DAILY 03/05/23 03/06/23 metformin 500 mg tablet 500 mg PO BIDWM 03/05/23 03/06/23 mirtazapine 15 mg tablet 7.5 mg PO BEDTIME 03/05/23 03/06/23 montelukast 10 mg tablet 10 mg PO BEDTIME 03/05/23 03/06/23 nystatin 100,000 unit/gram topical 1 appl topical BID 03/05/23 03/06/23 powder pantoprazole 40 mg tablet,delayed 40 mg PO DAILY@0630 03/05/23 03/06/23 release sennosides 8.6 mg tablet (senna) 17.2 mg PO BEDTIME PRN constipation 03/05/23 03/06/23 Previous Rx's Medication Instructions Recorded prazosin 1 mg capsule 4 mg PO BEDTIME 30 days #120 caps 01/04/22 meclizine 25 mg tablet 25 mg PO DAILY PRN dizziness #6 01/24/23 tabs Allergies Allergy/AdvReac Type Severity Reaction Status Date / Time Fish Containing Products Allergy Severe ANAPHYLAXIS Verified 03/03/23 16:23 codeine [Codeine] Allergy Intermediate RASH Verified 03/03/23 16:23 Penicillins Allergy Intermediate RASH Verified 03/03/23 16:23 prednisone [Prednisone] Allergy Intermediate RASH Verified 03/03/23 16:23 Sulfa (Sulfonamide Allergy Intermediate RASH Verified 03/03/23 16:23 Antibiotics) [Sulfa (Sulfonamides)] azithromycin [AZITHROMYCIN] AdvReac Severe RASH Verified 03/03/23 16:23 ziprasidone [From Geodon] AdvReac Intermediate dysuria, Verified 03/03/23 16:23 rash Review of Systems Review of Systems: Constitutional : No Weight loss, No Fever, No Chills, No Night Sweats, No Fatigue, No Malaise ENT/Mouth : No Hearing loss, No Ear Pain, No Nasal Congestion, No Sinus Pain, No Hoarseness, No sore throat, No Rhinorrhea, No Swallowing Difficulty Eyes: No Eye Pain, No Swelling, No Redness, No Foreign Body, No Discharge, No Vision Changes Cardiovascular : No Chest Pain, No SOB, No Dyspnea on Exertion, No Orthopnea, No Edema, No Palpitations Respiratory : No Cough, No Sputum, No Wheezing, No Smoke Exposure, No Dyspnea Gastrointestinal : No Nausea, No Vomiting, No Diarrhea, No Constipation, No abdominal Pain, No Hematochezia, No Melena Genitourinary : no irregular bleeding, No Dysuria, No Urinary Frequency, No Hematuria, No Urinary Incontinence, No Urgency, No Flank Pain, No Urinary Flow Changes, No Hesitancy Musculoskeletal : No joint pain, No Myalgias, No Joint Swelling Skin : No Skin Lesions, No rash Neuro : No Weakness, No Numbness, No Paresthesias, No Loss of Consciousness, No Dizziness, No Headache Psych : Feeling anxious, states she is hearing voices. Denies using any medications to hurt herself but did considered. Heme/Lymph: No Bruising, No Bleeding,No Lymphadenopathy Endocrine : No Polyuria, No Polydipsia, No Temperature Intolerance PMFSH Past Medical History Medical History Acetaminophen overdose Borderline personality disorder Bronchitis Depression Diabetes type 2, controlled Full body hives GERD (gastroesophageal reflux disease) History of attempted suicide History of non-suicidal self-harm Hyperlipidemia Hypomagnesemia Major depression MDD (major depressive disorder), recurrent episode, severe Mood disorder Overdose PTSD (post-traumatic stress disorder) Suicide attempt Suicide attempt by acetaminophen overdose Social History Social History Household Members: Other Household Members Other:: long-term Housing: Other Housing Other:: long-term Do you presently have visiting nurse or other home services: No Unable to assess alcohol history related to: Unknown Alcohol intake: never Patient Tobacco Use Status: Current everyday Tobacco user Tobacco use type: Cigarette Cigarette Packs Per Day: 1 Cigarettes Per Day: 16 Years Smoked: 20 e-Cigarette/Vaping Use: Never Used Substance Use Type: Marijuana Advance Directives: No Advance Directives Information Provided: Yes service: No Current occupational status: unemployed and disabled Sexual orientation: Don't Know Physical Exam Vital Signs: Vital Signs: Last Vital Signs Temp 97.6 F 03/07/23 03:29 Pulse 74 03/07/23 03:29 Resp 16 03/07/23 03:29 BP 143/92 H 03/07/23 03:29 Pulse Ox 95 03/07/23 03:29 O2 Del Method Room Air 03/07/23 03:29 BMI result Body Mass Index 39.1 Const: Other: Appearance: Alert. Oriented X3. No acute distress. Eyes: Pupils equal, round and reactive to light. ENT: Pharynx normal. Neck: Normal inspection. Neck supple. No lymph nodes noted. No crepitus CVS: Normal heart rate and rhythm. Pulses normal. Normal S1 and S2 Respiratory: No respiratory distress. Breath sounds normal. No Wheezing. No rales Abdomen: Soft and nontender. No rigidity. No distention. Skin: Skin warm and dry. Normal skin color. Normal skin turgor. Extremities: No lower extremity edema. No Lacerations. No Rash Neuro: Oriented X 3. No motor deficit. No sensory deficit. Moving all extremities. No slurred speech. CN 2 through 12 grossly intact Psych: calm, cooperative anxious Medications Administered Generic Name Dose Route Start Last Admin Trade Name Freq PRN Reason Stop Dose Admin Benztropine Mesylate 1 mg 03/07/23 09:45 03/07/23 10:29 Benztropine Mesylate 1 Mg Tablet PO 1 mg BID YULY Administration Fluoxetine HCl 80 mg 03/07/23 09:45 03/07/23 10:29 Fluoxetine Hcl 20 Mg Capsule PO 80 mg DAILY YULY Administration Fluphenazine HCl 5 mg 03/07/23 09:45 03/07/23 10:29 Fluphenazine Hcl 5 Mg Tablet PO 5 mg BID YULY Administration Lisinopril 5 mg 03/07/23 10:00 03/07/23 10:29 Lisinopril 5 Mg Tablet PO 5 mg DAILY YULY Administration Protocol Metformin HCl 500 mg 03/07/23 09:45 03/07/23 10:29 Metformin Hcl 500 Mg Tablet PO 500 mg BIDWM YULY Administration Discontinued Medications Generic Name Dose Route Start Last Admin Trade Name Freq PRN Reason Stop Dose Admin Acetaminophen 975 mg 03/06/23 22:07 03/06/23 22:12 Acetaminophen 325 Mg Tablet PO 03/06/23 22:08 975 mg ONCE ONE Administration Medical Decision Making Medical Decision Making MDM Narrative: I assumed care of this patient from my colleague, Dr. Allison at 07:00 hours. 47-year-old female well-known to the emergency department who is seen here frequently who presents emergency department for evaluation of suicidal ideat ion. The patient is waiting to be seen by the care team to determine disposition 1132: Patient was seen by the care team and the patient is cleared to go back to her long-term. Differential Diagnosis Differential includes was not limited to depression, anxiety, suicidal ideation, Admission/Observation Consideration of admission/observation: Escalation of care including admission/observation considered Lab Data [facility] Lab Attestation statement: I reviewed the patient's lab results. 03/06/23 20:51 03/06/23 20:51 Labs: Lab Results 03/06/23 03/06/23 03/06/23 Range/Units 20:46 20:46 20:46 WBC (4.8-10.8) X10*3/uL RBC (4.20-5.50) X10*6/uL Hgb (12.0-16.0) g/dl Hct (37.0-47.0) % MCV (80.0-98.0) fL MCH (27.0-33.0) pg MCHC (31.0-35.0) g/dl RDW (11.0-16.0) % Plt Count (160-400) X10*3/uL MPV (9.4-12.3) fL Immature Gran % (Auto) (0.0-0.4) % Neut % (Auto) (45-73) % Lymph % (Auto) (20-40) % Burke % (Auto) (2-11) % Eos % (Auto) (0-4) % Baso % (Auto) (0-2) % Lymph # (Auto) (1.2-4.9) X10*3/uL Burke # (Auto) (0.1-1.2) X10*3/uL Eos # (Auto) (0.0-0.4) X10*3/uL Baso # (Auto) (0.0-0.2) X10*3/uL Abs Immat Gran (auto) (0.00-0.03) X10*3/uL Absolute Neuts (auto) (2.0-8.3) x10*3/uL Absolute Nucleated RBC (0.0-0.012) X10*3/uL Nucleated RBC % (auto) (0.0-0.2) /100WBC Sodium (135-145) mmol/L Potassium (3.3-5.1) mmol/L Chloride (96-108) mmol/L Carbon Dioxide (22-29) mmol/L Anion Gap (12-20) BUN (9-16) mg/dL Creatinine (0.5-1.4) mg/dL Estim Creat Clear Calc Estimated GFR Random Glucose (60-115) mg/dL Calcium (8.4-10.2) mg/dL Total Bilirubin (0.0-1.0) mg/dL AST (5-31) U/L ALT (0-31) U/L Alkaline Phosphatase (39-117) U/L Total Protein (6.5-8.0) g/dL Albumin (3.5-5.0) g/dL Urine Color Yellow Urine Appearance Clear Urine pH 6.5 (5.0-9.0) Ur Specific Prosper <= 1.005 (1.005-1.025) Urine Protein Negative (Neg-Trace) mg/dL Urine Glucose (UA) Negative (Negative) mg/dL Urine Ketones Negative (Negative) mg/dL Urine Blood Large (3+) H (Negative) Urine Nitrite Negative (Negative) Ur Leukocyte Esterase Large (3+) H (Negative) Urine RBC 0-2 (0-2) /HPF Urine WBC >50 H (0-5) /HPF Ur Squamous Epith Cells 0-2 (0-2) /HPF Urine Bacteria 4+ (None Seen) Hyaline Casts 0-2 (0-2) /LPF Urine Test NEGATIVE (NEGATIVE) Salicylates (15-30) mg/dL Urine Opiates Screen Not Detected (Not Detect) Urine Fentanyl Screen Not Detected (Not Detect) Acetaminophen (<30) mcg/mL Ur Barbiturates Screen Not Detected (Not Detect) Ur Phencyclidine Scrn Not Detected (Not Detect) Ur Amphetamines Screen Not Detected (Not Detect) U Benzodiazepines Scrn Not Detected (Not Detect) Urine Cocaine Screen Not Detected (Not Detect) U Marijuana (THC) Screen Not Detected (Not Detect) Ethyl Alcohol mg/dL COVID-19 (NICK) (Negative) COVID-19 Clin Com 03/06/23 03/06/23 03/06/23 Range/Units 20:49 20:51 20:51 WBC 7.2 (4.8-10.8) X10*3/uL RBC 3.96 L (4.20-5.50) X10*6/uL Hgb 11.1 L (12.0-16.0) g/dl Hct 34.2 L (37.0-47.0) % MCV 86.4 (80.0-98.0) fL MCH 28.0 (27.0-33.0) pg MCHC 32.5 (31.0-35.0) g/dl RDW 14.5 (11.0-16.0) % Plt Count 309 (160-400) X10*3/uL MPV 9.6 (9.4-12.3) fL Immature Gran % (Auto) 0.3 (0.0-0.4) % Neut % (Auto) 64.7 (45-73) % Lymph % (Auto) 22.6 (20-40) % Burke % (Auto) 7.8 (2-11) % Eos % (Auto) 4.3 H (0-4) % Baso % (Auto) 0.3 (0-2) % Lymph # (Auto) 1.6 (1.2-4.9) X10*3/uL Burke # (Auto) 0.6 (0.1-1.2) X10*3/uL Eos # (Auto) 0.3 (0.0-0.4) X10*3/uL Baso # (Auto) 0.0 (0.0-0.2) X10*3/uL Abs Immat Gran (auto) 0.02 (0.00-0.03) X10*3/uL Absolute Neuts (auto) 4.6 (2.0-8.3) x10*3/uL Absolute Nucleated RBC 0.000 (0.0-0.012) X10*3/uL Nucleated RBC % (auto) 0.0 (0.0-0.2) /100WBC Sodium 139 (135-145) mmol/L Potassium 4.3 (3.3-5.1) mmol/L Chloride 106 (96-108) mmol/L Carbon Dioxide 25 (22-29) mmol/L Anion Gap 12 (12-20) BUN 11 (9-16) mg/dL Creatinine 0.72 (0.5-1.4) mg/dL Estim Creat Clear Calc 119.7 Estimated GFR > 60 Random Glucose 97 (60-115) mg/dL Calcium 9.1 (8.4-10.2) mg/dL Total Bilirubin 0.2 (0.0-1.0) mg/dL AST 26 (5-31) U/L ALT 23 (0-31) U/L Alkaline Phosphatase 132 H (39-117) U/L Total Protein 7.1 (6.5-8.0) g/dL Albumin 4.1 (3.5-5.0) g/dL Urine Color Urine Appearance Urine pH (5.0-9.0) Ur Specific Prosper (1.005-1.025) Urine Protein (Neg-Trace) mg/dL Urine Glucose (UA) (Negative) mg/dL Urine Ketones (Negative) mg/dL Urine Blood (Negative) Urine Nitrite (Negative) Ur Leukocyte Esterase (Negative) Urine RBC (0-2) /HPF Urine WBC (0-5) /HPF Ur Squamous Epith Cells (0-2) /HPF Urine Bacteria (None Seen) Hyaline Casts (0-2) /LPF Urine Test (NEGATIVE) Salicylates (15-30) mg/dL Urine Opiates Screen (Not Detect) Urine Fentanyl Screen (Not Detect) Acetaminophen (<30) mcg/mL Ur Barbiturates Screen (Not Detect) Ur Phencyclidine Scrn (Not Detect) Ur Amphetamines Screen (Not Detect) U Benzodiazepines Scrn (Not Detect) Urine Cocaine Screen (Not Detect) U Marijuana (THC) Screen (Not Detect) Ethyl Alcohol mg/dL COVID-19 (NICK) Negative (Negative) COVID-19 Clin Com See Note 03/06/23 Range/Units 20:51 WBC (4.8-10.8) X10*3/uL RBC (4.20-5.50) X10*6/uL Hgb (12.0-16.0) g/dl Hct (37.0-47.0) % MCV (80.0-98.0) fL MCH (27.0-33.0) pg MCHC (31.0-35.0) g/dl RDW (11.0-16.0) % Plt Count (160-400) X10*3/uL MPV (9.4-12.3) fL Immature Gran % (Auto) (0.0-0.4) % Neut % (Auto) (45-73) % Lymph % (Auto) (20-40) % Burke % (Auto) (2-11) % Eos % (Auto) (0-4) % Baso % (Auto) (0-2) % Lymph # (Auto) (1.2-4.9) X10*3/uL Burke # (Auto) (0.1-1.2) X10*3/uL Eos # (Auto) (0.0-0.4) X10*3/uL Baso # (Auto) (0.0-0.2) X10*3/uL Abs Immat Gran (auto) (0.00-0.03) X10*3/uL Absolute Neuts (auto) (2.0-8.3) x10*3/uL Absolute Nucleated RBC (0.0-0.012) X10*3/uL Nucleated RBC % (auto) (0.0-0.2) /100WBC Sodium (135-145) mmol/L Potassium (3.3-5.1) mmol/L Chloride (96-108) mmol/L Carbon Dioxide (22-29) mmol/L Anion Gap (12-20) BUN (9-16) mg/dL Creatinine (0.5-1.4) mg/dL Estim Creat Clear Calc Estimated GFR Random Glucose (60-115) mg/dL Calcium (8.4-10.2) mg/dL Total Bilirubin (0.0-1.0) mg/dL AST (5-31) U/L ALT (0-31) U/L Alkaline Phosphatase (39-117) U/L Total Protein (6.5-8.0) g/dL Albumin (3.5-5.0) g/dL Urine Color Urine Appearance Urine pH (5.0-9.0) Ur Specific Prosper (1.005-1.025) Urine Protein (Neg-Trace) mg/dL Urine Glucose (UA) (Negative) mg/dL Urine Ketones (Negative) mg/dL Urine Blood (Negative) Urine Nitrite (Negative) Ur Leukocyte Esterase (Negative) Urine RBC (0-2) /HPF Urine WBC (0-5) /HPF Ur Squamous Epith Cells (0-2) /HPF Urine Bacteria (None Seen) Hyaline Casts (0-2) /LPF Urine Test (NEGATIVE) Salicylates < 5.0 L (15-30) mg/dL Urine Opiates Screen (Not Detect) Urine Fentanyl Screen (Not Detect) Acetaminophen < 17 (<30) mcg/mL Ur Barbiturates Screen (Not Detect) Ur Phencyclidine Scrn (Not Detect) Ur Amphetamines Screen (Not Detect) U Benzodiazepines Scrn (Not Detect) Urine Cocaine Screen (Not Detect) U Marijuana (THC) Screen (Not Detect) Ethyl Alcohol < 10 mg/dL COVID-19 (NICK) (Negative) COVID-19 Clin Com Discharge Plan Discharge Clinical Impression: Depression with suicidal ideation Patient Disposition: Home, Self-Care Additional Instructions: Continue medications as prescribed by your providers Follow-up with your doctor in 2 days. Please return to the emergency department if your symptoms get worse or if you develop any symptoms that are concerning to you. Prescriptions: No Action ferrous sulfate 325 mg (65 mg iron) Tablet 325 mg PO DAILY benztropine [Cogentin] 1 mg Tablet 1 mg PO BID fluoxetine 40 mg capsule 2 cap PO DAILY albuterol sulfate [Ventolin HFA] 90 mcg/actuation HFA aerosol inhaler 2 puff inhalation Q4-6H PRN (Reason: Shortness Of Breath Or Wheezing) fluphenazine HCl 5 mg tablet 1 tab PO BID chlorpromazine 50 mg tablet 1 tab PO TID PRN (Reason: Agitation) prazosin 1 mg Capsule 4 mg PO BEDTIME 30 Days Qty: 120 0RF Protocol: Hold for SBP< HOLD for SBP < : 90 trazodone 150 mg tablet 1 tab PO BEDTIME meclizine 25 mg tablet 25 mg PO DAILY PRN (Reason: dizziness) Qty: 6 0RF metformin 500 mg tablet 500 mg PO BIDWM atorvastatin 10 mg tablet 10 mg PO BEDTIME pantoprazole 40 mg tablet,delayed release (DR/EC) 40 mg PO DAILY@0630 montelukast 10 mg tablet 10 mg PO BEDTIME lisinopril 5 mg tablet 5 mg PO DAILY mirtazapine 15 mg tablet 7.5 mg PO BEDTIME sennosides [senna] 8.6 mg tablet 17.2 mg PO BEDTIME PRN (Reason: constipation) lactulose 10 gram/15 mL solution 30 ml PO BID PRN (Reason: Constipation) nystatin 100,000 unit/gram powder 1 appl topical BID Interventions: [place]-Suicide Risk Severity Scale Last Done: 03/07/23 06:07
[2023-03-06 19:52] VITALS: BP 142/100; PULSE 93; RESP 17; TEMP 36.9; BMI 39.1
[2023-03-06 20:57] LABS: MANUAL DIFF FLAG NO
[2023-03-06 20:58] LABS: UPreg QC Valid YES; Urine Pregnancy NEGATIVE (NEGATIVE)
[2023-03-06 21:00] LABS: Appearance Urine Clear; Color Urine Yellow; Glucose Urine UA Negative (Negative); Leukocyte Esterase Urine Large (3+) (Negative); Nitrite Urine Negative (Negative); PH 6.5 (5.0-9.0); Specific Gravity - Urine <= 1.005 (1.005-1.025); UMIC TRIGGER UA YES; Urine Blood Large (3+) (Negative); Urine Ketones Negative (Negative); Urine Protein Negative (Neg-Trace)
[2023-03-06 21:02] LABS: Basophils Percent Auto 0.3 % (0-2); Eosinophils Absolute Auto 0.3 X10*3/uL (0.0-0.4); Eosinophils Percent Auto 4.3 % (0-4); Hematocrit 34.2 % (37.0-47.0); Hemoglobin 11.1 g/dl (12.0-16.0); Imm Gran Abs Auto 0.02 X10*3/uL (0.00-0.03); Imm Gran Pct Auto 0.3 % (0.0-0.4); Lymphocytes Absolute Auto 1.6 X10*3/uL (1.2-4.9); Lymphocytes Percent Auto 22.6 % (20-40); Mean Corpuscular HGB Conc 32.5 g/dl (31.0-35.0); Mean Corpuscular Volume 86.4 fL (80.0-98.0); Mean Platelet Volume 9.6 fL (9.4-12.3); Monocytes Absolute Auto 0.6 X10*3/uL (0.1-1.2); Monocytes Percent Auto 7.8 % (2-11); Neutrophils Absolute Auto 4.6 x10*3/uL (2.0-8.3); Neutrophils Percent Auto 64.7 % (45-73); Platelet Count 309 X10*3/uL (160-400); Red Blood Count 3.96 X10*6/uL (4.20-5.50); Red Cell Distribution Width 14.5 % (11.0-16.0); White Blood Count 7.2 X10*3/uL (4.8-10.8)
[2023-03-06 21:09] LABS: Amphetamine Screen Urine Not Detected (Not Detect); Barbiturates, Urine Not Detected (Not Detect); Benzodiazepines Screen Urine Not Detected (Not Detect); Cannabinoid Screen Urine Not Detected (Not Detect); Cocaine Screen Urine Not Detected (Not Detect); Fentanyl, urine Not Detected (Not Detect); Opiate Screen Urine Not Detected (Not Detect); Phencyclidine Screen Urine Not Detected (Not Detect)
[2023-03-06 21:16] LABS: COVID-19 Test Negative (Negative); IDNOW Serial# BCCEAD1C
[2023-03-06 21:17] LABS: Bacteria Urine 4+ (None Seen); Hyaline Casts Urine 0-2 /LPF (0-2); RBC Urine 0-2 /HPF (0-2); Squamous Epithelial Cell Urine 0-2 /HPF (0-2); WBC Urine >50 /HPF (0-5)
[2023-03-06 21:22] LABS: Ethanol < 10 mg/dL
[2023-03-06 21:29] LABS: Alanine Aminotransferase 23 U/L (0-31); Albumin Level 4.1 g/dL (3.5-5.0); Alkaline Phosphatase 132 U/L (39-117); Anion Gap 12 (12-20); Aspartate Amino Transferase 26 U/L (5-31); Bilirubin Total 0.2 mg/dL (0.0-1.0); Blood Urea Nitrogen 11 mg/dL (9-16); Calcium 9.1 mg/dL (8.4-10.2); Carbon Dioxide 25 mmol/L (22-29); Chloride 106 mmol/L (96-108); Creatinine Clr Calc Pharmacy 119.7; Estimated Glomerular Filt Rate > 60; Glucose Random 97 mg/dL (60-115); Potassium 4.3 mmol/L (3.3-5.1); Sodium 139 mmol/L (135-145); Total Protein 7.1 g/dL (6.5-8.0)
[2023-03-06 21:47] LABS: Acetaminophen LAB < 17 mcg/mL (<30); Salicylate < 5.0 mg/dL (15-30)
[2023-03-06] MEDS: Acetaminophen 325 MG TABLET 975 MG PO (22:12)
[2023-03-07 03:29] VITALS: BP 143/92; PULSE 74; RESP 16; TEMP 36.4; O2SAT 95
--- NOTE | 2023-03-07 06:09 | PC.NURSE ---
Patient slept through the night, no distress observed /reported, Tylenol 975 mg administered at 2212 with + effect, med rec completed/pending provider's approval, care team evaluated the patient, disposition SAMIRA follow up, VSS, will continue to monitor.
--- NOTE | 2023-03-07 08:37 | PC.NURSE ---
assumed care of this pt at 0700. pt walking around unit at the time of assuming care. denies pain, no complaints. will continue to observe. pt seen by Jeffrey from Care Team.
[2023-03-07] MEDS: FLUoxetine HCl 20 MG CAPSULE 80 MG PO (10:29)
[2023-03-07] MEDS: lisinopriL 5 MG TABLET PO (10:29)
[2023-03-07] MEDS: fluPHENAZine HCl 5 MG TABLET PO (10:29)
[2023-03-07] MEDS: metFORMIN HCl 500 MG TABLET PO (10:29)
[2023-03-07] MEDS: Benztropine Mesylate 1 MG TABLET PO (10:29)
--- NOTE | 2023-03-09 14:48 | MHC.CARE ---
Check in was done and staff report Lucita is doing well, she is currently eating ice cream with her friends. No further follow up needed.
== END 2023-03-07 11:40 | disposition home or self-care (01) ==
PROVIDERS: Emergency Medicine; Emergency Provider Emergency Medicine Emergency Medical Services
DX: R45.851 Suicidal ideations (principal); F32.A Depression, unspecified; R44.0 Auditory hallucinations; Z20.822 Contact with and (suspected) exposure to COVID-19; E11.8 Type 2 diabetes mellitus with unspecified complications; E78.5 Hyperlipidemia, unspecified
CPT/HCPCS: 36415; 80053; 80143; 80179; 80307; 81001; 81003; 81025; 85025; 87635; 99284

== ENCOUNTER 2023-03-09 17:26 | Emergency (ER) | payer MEDICARE, MEDICAID, SELFPAY ==
[2023-03-09 17:45] VITALS: BP 130/90; PULSE 100; O2SAT 98
[2023-03-09 17:46] VITALS: BMI 37.4
[2023-03-09 17:49] VITALS: BP 152/91; PULSE 88; RESP 16; TEMP 36.6; O2SAT 96
--- NOTE | 2023-03-09 18:00 | MHC.EDTECH ---
Pt changed over with security. Belongings placed in pod locker #5
--- NOTE | 2023-03-09 18:04 | ED.PSYCH ---
HPI - Psych General Chief Complaint: Psychiatric Symptoms Stated Complaint: CARISSA SEGUNDO Time Seen by Provider: 03/09/23 17:29 Source: patient and EMS Mode of arrival: EMS Limitations: no limitations History of Present Illness HPI Narrative: This is a 47-year-old female history of bipolar two with melacholic features, depression, PTSD, diabetes, GERD, suicide attempts presenting to the emergency department with suicidal ideation and and command hallucinations, patient tells me voices are telling her to cut herself so she can . She reports she got triggered while watching TV.? She reports increasing life stressors, she tells me she feels very depressed and suicidal at this time.? She reports visual and auditory hallucinations, seeing shadows were telling her to harm herself.? Denies tactile hallucinations.? Denies drugs, alcohol and tobacco.? No medical complaints. Related Data Home Medications Medication Instructions Recorded Confirmed trazodone 150 mg tablet 1 tab PO BEDTIME 09/23/22 03/09/23 benztropine 1 mg tablet 1 mg PO BID 12/19/22 03/09/23 ferrous sulfate 325 mg (65 mg 325 mg PO DAILY 12/19/22 03/09/23 iron) tablet albuterol sulfate 90 mcg/actuation 2 puff inhalation Q4-6H PRN 12/24/22 03/09/23 aerosol inhaler (Ventolin HFA) Shortness Of Breath Or Wheezing chlorpromazine 50 mg tablet 1 tab PO TID PRN Agitation 12/24/22 03/09/23 fluoxetine 40 mg capsule 2 cap PO DAILY 12/24/22 03/09/23 fluphenazine HCl 5 mg tablet 1 tab PO BID 12/24/22 03/09/23 atorvastatin 10 mg tablet 10 mg PO BEDTIME 03/05/23 03/09/23 lactulose 10 gram/15 mL oral 30 ml PO BID PRN Constipation 03/05/23 03/09/23 solution lisinopril 5 mg tablet 5 mg PO DAILY 03/05/23 03/09/23 metformin 500 mg tablet 500 mg PO BIDWM 03/05/23 03/09/23 mirtazapine 15 mg tablet 7.5 mg PO BEDTIME 03/05/23 03/09/23 montelukast 10 mg tablet 10 mg PO BEDTIME 03/05/23 03/09/23 nystatin 100,000 unit/gram topical 1 appl topical BID 03/05/23 03/09/23 powder pantoprazole 40 mg tablet,delayed 40 mg PO DAILY@0630 03/05/23 03/09/23 release sennosides 8.6 mg tablet (senna) 17.2 mg PO BEDTIME PRN constipation 03/05/23 03/09/23 Previous Rx's Medication Instructions Recorded prazosin 1 mg capsule 4 mg PO BEDTIME 30 days #120 caps 10/18/21 meclizine 25 mg tablet 25 mg PO DAILY PRN dizziness #6 01/24/23 tabs nitrofurantoin 100 mg PO BID 5 days #10 caps 03/09/23 monohydrate/macrocrystals 100 mg capsule (Macrobid) Allergies Allergy/AdvReac Type Severity Reaction Status Date / Time Fish Containing Products Allergy Severe ANAPHYLAXIS Verified 03/03/23 16:23 codeine [Codeine] Allergy Intermediate RASH Verified 03/03/23 16:23 Penicillins Allergy Intermediate RASH Verified 03/03/23 16:23 prednisone [Prednisone] Allergy Intermediate RASH Verified 03/03/23 16:23 Sulfa (Sulfonamide Allergy Intermediate RASH Verified 03/03/23 16:23 Antibiotics) [Sulfa (Sulfonamides)] azithromycin [AZITHROMYCIN] AdvReac Severe RASH Verified 03/03/23 16:23 ziprasidone [From Geodon] AdvReac Intermediate dysuria, Verified 03/03/23 16:23 rash Review of Systems Review of Systems: Constitutional : No Weight loss, No Fever, No Chills, No Fatigue, No Malaise ENT/Mouth : No sore throat, No Rhinorrhea Eyes: No Eye Pain, No Swelling, No Redness Cardiovascular : No Chest Pain, No SOB, No Dyspnea on Exertion, No Orthopnea, No Edema, No Palpitations Respiratory : No Cough, No Sputum, No Wheezing Gastrointestinal : No Nausea, No Vomiting, No Diarrhea, No Constipation, No abdominal Pain, No Hematochezia, No Melena Genitourinary : No Dysuria, No Urinary Frequency, No Hematuria, Musculoskeletal : No joint pain, No Myalgias, No Joint Swelling Skin : No Skin Lesions, No rash Neuro : No Weakness, No Numbness, No Dizziness, No Headache Psych : + Anxiety/Panic, + Depression, + SI Yes all other systems are reviewed and are negative [facility] Past Medical History Attestation statement: The following information was validated with the patient. 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: Other Household Members Other:: penitentiary Housing: Other Housing Other:: penitentiary Do you presently have visiting nurse or other home services: No Unable to assess alcohol history related to: Unknown Alcohol intake: never Patient Tobacco Use Status: Current everyday Tobacco user Tobacco use type: Cigarette Cigarette Packs Per Day: 1 Cigarettes Per Day: 16 Years Smoked: 20 Smoked in Last 30 Days: No e-Cigarette/Vaping Use: Never Used Substance Use Type: Marijuana Advance Directives: No Advance Directives Information Provided: Yes service: No Current occupational status: unemployed and disabled Sexual orientation: Don't Know Physical Exam Vital Signs: Vital Signs: Last Vital Signs Temp 97.9 F 03/09/23 17:49 Pulse 88 03/09/23 17:49 Resp 16 03/09/23 17:49 BP 152/91 H 03/09/23 17:49 Pulse Ox 96 03/09/23 17:49 O2 Del Method Room Air 03/09/23 17:49 BMI result Body Mass Index 37.4 Appearance: Alert.? Oriented X3.? No acute distress.? Head:? Normocephalic, atraumatic, no step-offs or deformities Eyes: Pupils equal, round and reactive to light.? Neck: Normal inspection.? Neck supple.? CVS: Normal heart rate and rhythm.? Pulses normal.? Respiratory: No respiratory distress.? Breath sounds normal.? Abdomen: Soft and nontender.? Skin: Skin warm and dry.? Normal skin color.? Normal skin turgor.?Old self-inflicted superficial wounds to? bilateral forearms, anterior thighs bilaterally, stomach Extremities: No lower extremity edema.? No calf ttp.? 5/5 strength to bilateral upper and lower extremities Neuro: Oriented X 3.? No motor deficit.? No sensory deficit. CN 2-12 intact Course Reevaluation(s) Reevaluation #1: UA with infection will give Macrobid. Urine tox negative. Patient common cooperative. Will placed in physician observation at this time to allow time for [facility] clearance. Time: 18:51 Reevaluation #2: Patient was evaluated by the care team move feels as though patient is safe to go home. She denies suicidal homicidal ideations states she is feeling much better. Educated patient on diagnosis and treatment plan, answered all question, patient verbalizes understanding. At this time patient will be discharged home, advised to return with new or worsening symptoms. Educated on worrisome signs and symptoms and when to return. At this time I feel comfortable discharge home. Time: 21:19 Medications Administered Discontinued Medications Generic Name Dose Route Start Last Admin Trade Name Freq PRN Reason Stop Dose Admin Nitrofurantoin Macrocrystals 100 mg 03/09/23 18:29 03/09/23 18:36 Nitrofurantoin Monohyd/M-Cryst 100 Mg Capsule PO 03/09/23 18:30 100 mg ONCE ONE Administration Medical Decision Making Medical Decision Making [facility] Narrative: ?47 year-old female presenting with anxiety, depression, visual and auditory hallucinations , self-inflicted wounds . Physical examination w/ ? Superficial wounds to bilateral forearms,? anterior thigh use, abdomen Likley MDD vs borderline personality do vs anxiety.? Unlikely metabolic causes. Plan- medical clearance and evaluation by [facility] Differential Diagnosis Differential Diagnoses: The differential diagnosis associated with the presentation includes Likley MDD vs borderline personality do vs anxiety.? Unlikely metabolic causes. Admission/Observation Consideration of admission/observation: Escalation of care including admission/observation considered Lab Data Labs: Lab Results 03/09/23 03/09/23 03/09/23 Range/Units 18:05 18:05 20:06 Urine Color Yellow Urine Appearance Clear Urine pH 6.0 (5.0-9.0) Ur Specific [place] <= 1.005 (1.005-1.025) Urine Protein Negative (Neg-Trace) mg/dL Urine Glucose (UA) Negative (Negative) mg/dL Urine Ketones Negative (Negative) mg/dL Urine Blood Negative (Negative) Urine Nitrite Positive H (Negative) Ur Leukocyte Esterase Moderate (2+) H (Negative) Urine RBC 0-2 (0-2) /HPF Urine WBC 11-20 H (0-5) /HPF Ur Squamous Epith Cells 0-2 (0-2) /HPF Urine Bacteria 4+ (None Seen) Hyaline Casts 0-2 (0-2) /LPF Urine Opiates Screen Not Detected (Not Detect) Urine Fentanyl Screen Not Detected (Not Detect) Ur Barbiturates Screen Not Detected (Not Detect) Ur Phencyclidine Scrn Not Detected (Not Detect) Ur Amphetamines Screen Not Detected (Not Detect) U Benzodiazepines Scrn Not Detected (Not Detect) Urine Cocaine Screen Not Detected (Not Detect) U Marijuana (THC) Screen Not Detected (Not Detect) COVID-19 (NICK) Negative (Negative) COVID-19 Clin Com See Note Core Measures AMI core measures followed: Yes Measure exclusions: not indicated Discharge Plan Discharge Clinical Impression: Suicidal ideation, Depression, UTI (urinary tract infection) Patient Disposition: Home, Self-Care Instructions: Depression (ED), Help Prevent Suicide in Older Adults (ED), Suicide Prevention (ED) Additional Instructions: Take your medications as prescribed. If you were prescribed antibiotics today, it is important that you take your medication to their entirety, do not skip any doses, do not finish them early. Follow-up with your primary care provider this week. Return to the emergency department with new or worsening symptoms. Such as fevers, chills, chest pain, shortness of breath, nausea, vomiting, dizziness, headache, vision changes, lethargy, suicidal or homicidal ideation In case of emergency call 911 Prescriptions: New nitrofurantoin monohyd/m-cryst [Macrobid] 100 mg capsule 100 mg PO BID 5 Days Qty: 10 0RF Rx Instructions: must administer with a meal/food No Action ferrous sulfate 325 mg (65 mg iron) Tablet 325 mg PO DAILY benztropine [Cogentin] 1 mg Tablet 1 mg PO BID fluoxetine 40 mg capsule 2 cap PO DAILY albuterol sulfate [Ventolin HFA] 90 mcg/actuation HFA aerosol inhaler 2 puff inhalation Q4-6H PRN (Reason: Shortness Of Breath Or Wheezing) fluphenazine HCl 5 mg tablet 1 tab PO BID chlorpromazine 50 mg tablet 1 tab PO TID PRN (Reason: Agitation) prazosin 1 mg Capsule 4 mg PO BEDTIME 30 Days Qty: 120 0RF Protocol: Hold for SBP< HOLD for SBP < : 90 trazodone 150 mg tablet 1 tab PO BEDTIME meclizine 25 mg tablet 25 mg PO DAILY PRN (Reason: dizziness) Qty: 6 0RF metformin 500 mg tablet 500 mg PO BIDWM atorvastatin 10 mg tablet 10 mg PO BEDTIME pantoprazole 40 mg tablet,delayed release (DR/EC) 40 mg PO DAILY@0630 montelukast 10 mg tablet 10 mg PO BEDTIME lisinopril 5 mg tablet 5 mg PO DAILY mirtazapine 15 mg tablet 7.5 mg PO BEDTIME sennosides [senna] 8.6 mg tablet 17.2 mg PO BEDTIME PRN (Reason: constipation) lactulose 10 gram/15 mL solution 30 ml PO BID PRN (Reason: Constipation) nystatin 100,000 unit/gram powder 1 appl topical BID [facility]Provider [facility] - 2 days Interventions: [place]-Suicide Risk Severity Scale Last Done: 03/09/23 18:30
--- NOTE | 2023-03-09 18:09 | MHC.EDTECH ---
Urine collected and sent to lab
[2023-03-09 18:25] LABS: Appearance Urine Clear; Color Urine Yellow; Glucose Urine UA Negative (Negative); Leukocyte Esterase Urine Moderate (2+) (Negative); Nitrite Urine Positive (Negative); Specific Gravity - Urine <= 1.005 (1.005-1.025); UMIC TRIGGER UACC YES; Urine Blood Negative (Negative); Urine Ketones Negative (Negative); Urine Protein Negative (Neg-Trace)
[2023-03-09 18:29] LABS: Amphetamine Screen Urine Not Detected (Not Detect); Barbiturates, Urine Not Detected (Not Detect); Benzodiazepines Screen Urine Not Detected (Not Detect); Cannabinoid Screen Urine Not Detected (Not Detect); Cocaine Screen Urine Not Detected (Not Detect); Fentanyl, urine Not Detected (Not Detect); Opiate Screen Urine Not Detected (Not Detect); Phencyclidine Screen Urine Not Detected (Not Detect)
[2023-03-09 18:30] LABS: Bacteria Urine 4+ (None Seen); Hyaline Casts Urine 0-2 /LPF (0-2); RBC Urine 0-2 /HPF (0-2); Squamous Epithelial Cell Urine 0-2 /HPF (0-2); UACC Culture Trigger YES
[2023-03-09] MEDS: Nitrofurantoin Monohyd/M-Cryst 100 MG CAPSULE PO (18:36)
--- NOTE | 2023-03-09 20:06 | PC.NURSE ---
Patient just got transferred to main ED, no blood draw ordered, per Sheree CAPELLAN no blood draw needed at this time, covid swabed/pending result, will continue to monitor.
[2023-03-09 20:27] LABS: COVID-19 Test Negative (Negative); IDNOW Serial# 08D9AD1C
--- NOTE | 2023-03-09 20:59 | MHC.CARE ---
CARE Team met with the pt and pt is requesting to be discharged. She reported she engaged in cutting her arm with a spoon. No medical attention needed. She reported she was watching TV when she began to feel sad . She denies current SI/HI/AH/VH. She reported feeling safe returning to her [facility]. Pt has a history of presenting to ED with similar presentation and is often discharged when regulated. Pt does not appear to be at immediate risk of harming himself or others. CARE TEAM consulted with ANGELA Cali
--- NOTE | 2023-03-09 21:46 | PHA.MEDREC ---
Pharmacy Consult ? Medication Reconciliation Pharmacy has completed the medication reconciliation. Pharmacy has reviewed the med rec done by Vladimir
[2023-03-09 23:27] VITALS: BP 156/78; PULSE 75; RESP 16; TEMP 36.6; O2SAT 94
--- NOTE | 2023-03-10 06:15 | PC.NURSE ---
Patient slept through the night, no distress observed/reported, medication rec completed, pending provider;s approval, patient is cleared for discharge but due to unavailability of ride patient remained in the POD over night, behavior non concerning, VSS, will continue to monitor
[2023-03-10 09:56] VITALS: BP 148/88; PULSE 93; RESP 16; TEMP 36.8; O2SAT 95
--- NOTE | 2023-03-10 14:03 | MHC.CARE ---
Multiple calls to patient's residential residential throughout the morning without success. Got through at 1:00 pm and spoke to staff, Eileen, who reported the earlier shift's staff did not have transportation and she also does not have a car but the 4:00 pm does and can get patient. Advised staff to call supervisor multifocal lens Toni Pittman immediately and tell him that patient was cleared to leave last night and has been waiting, he is the only person who can access patient's personal [employer] account. Please call CARE Team back. 2:00 pm, unable to reach the residential, left message on voicemail. Provider updated
== END 2023-03-10 13:38 | disposition home or self-care (01) ==
PROVIDERS: Physician Assistant; Emergency Provider Internal Medicine
DX: R45.851 Suicidal ideations (principal); F31.9 Bipolar disorder, unspecified; N39.0 Urinary tract infection, site not specified; B96.1 Klebsiella pneumoniae [K. pneumoniae] as the cause of diseases classified elsewhere; Z20.822 Contact with and (suspected) exposure to COVID-19; R44.0 Auditory hallucinations; F60.3 Borderline personality disorder; F41.9 Anxiety disorder, unspecified; E11.9 Type 2 diabetes mellitus without complications; E78.5 Hyperlipidemia, unspecified; F23 Brief psychotic disorder; D64.9 Anemia, unspecified; F43.10 Post-traumatic stress disorder, unspecified; F17.210 Nicotine dependence, cigarettes, uncomplicated; F12.90 Cannabis use, unspecified, uncomplicated; E66.9 Obesity, unspecified; Z68.43 Body mass index [BMI] 50.0-59.9, adult; Z91.51 Personal history of suicidal behavior; Z91.52 Personal history of nonsuicidal self-harm; Z79.84 Long term (current) use of oral hypoglycemic drugs; Z79.899 Other long term (current) drug therapy; Z79.02 Long term (current) use of antithrombotics/antiplatelets
CPT/HCPCS: 80307; 81001; 87086; 87088; 87186; 87635; 99285

== ENCOUNTER 2023-03-13 19:20 | Emergency (ER) | payer MEDICARE, MEDICAID, SELFPAY ==
[2023-03-13 19:32] VITALS: BP 139/83; PULSE 112; RESP 16; TEMP 37.2; O2SAT 94; BMI 37.9
--- NOTE | 2023-03-13 20:00 | ED.PSYCH ---
HPI - Psych General Chief Complaint: Psychiatric Symptoms Stated Complaint: SI, HEARING VOICES Time Seen by Provider: 03/13/23 19:48 Source: patient Mode of arrival: EMS Limitations: no limitations History of Present Illness HPI Narrative: Patient comes to the emergency room complaining of hearing voices telling her to hurt herself. Patient has been evaluated multiple times in the emergency room for the same issue. Patient denies hurting herself or ingesting any drugs or medications before coming to arrival Related Data Home Medications Medication Instructions Recorded Confirmed trazodone 150 mg tablet 1 tab PO BEDTIME 09/23/22 03/13/23 benztropine 1 mg tablet 1 mg PO BID 12/19/22 03/13/23 ferrous sulfate 325 mg (65 mg 325 mg PO DAILY 12/19/22 03/13/23 iron) tablet albuterol sulfate 90 mcg/actuation 2 puff inhalation Q4-6H PRN 12/24/22 03/13/23 aerosol inhaler (Ventolin HFA) Shortness Of Breath Or Wheezing chlorpromazine 50 mg tablet 1 tab PO TID PRN Agitation 12/24/22 03/13/23 fluoxetine 40 mg capsule 2 cap PO DAILY 12/24/22 03/13/23 fluphenazine HCl 5 mg tablet 1 tab PO BID 12/24/22 03/13/23 atorvastatin 10 mg tablet 10 mg PO BEDTIME 03/05/23 03/13/23 lactulose 10 gram/15 mL oral 30 ml PO BID PRN Constipation 03/05/23 03/13/23 solution lisinopril 5 mg tablet 5 mg PO DAILY 03/05/23 03/13/23 metformin 500 mg tablet 500 mg PO BIDWM 03/05/23 03/13/23 mirtazapine 15 mg tablet 7.5 mg PO BEDTIME 03/05/23 03/13/23 montelukast 10 mg tablet 10 mg PO BEDTIME 03/05/23 03/13/23 nystatin 100,000 unit/gram topical 1 appl topical BID 03/05/23 03/13/23 powder pantoprazole 40 mg tablet,delayed 40 mg PO DAILY@0630 03/05/23 03/13/23 release sennosides 8.6 mg tablet (senna) 17.2 mg PO BEDTIME PRN constipation 03/05/23 03/13/23 cephalexin 500 mg capsule 500 mg PO QID 03/13/23 03/13/23 Previous Rx's Medication Instructions Recorded prazosin 1 mg capsule 4 mg PO BEDTIME 30 days #120 caps 10/18/21 meclizine 25 mg tablet 25 mg PO DAILY PRN dizziness #6 01/24/23 tabs Allergies Allergy/AdvReac Type Severity Reaction Status Date / Time Fish Containing Products Allergy Severe ANAPHYLAXIS Verified 03/03/23 16:23 codeine [Codeine] Allergy Intermediate RASH Verified 03/03/23 16:23 Penicillins Allergy Intermediate RASH Verified 03/03/23 16:23 prednisone [Prednisone] Allergy Intermediate RASH Verified 03/03/23 16:23 Sulfa (Sulfonamide Allergy Intermediate RASH Verified 03/03/23 16:23 Antibiotics) [Sulfa (Sulfonamides)] azithromycin [AZITHROMYCIN] AdvReac Severe RASH Verified 03/03/23 16:23 ziprasidone [From Geodon] AdvReac Intermediate dysuria, Verified 03/03/23 16:23 rash Review of Systems Review of Systems: Constitutional : No Weight loss, No Fever, No Chills, No Night Sweats, No Fatigue, No Malaise ENT/Mouth : No Hearing loss, No Ear Pain, No Nasal Congestion, No Sinus Pain, No Hoarseness, No sore throat, No Rhinorrhea, No Swallowing Difficulty Eyes: No Eye Pain, No Swelling, No Redness, No Foreign Body, No Discharge, No Vision Changes Cardiovascular : No Chest Pain, No SOB, No Dyspnea on Exertion, No Orthopnea, No Edema, No Palpitations Respiratory : No Cough, No Sputum, No Wheezing, No Smoke Exposure, No Dyspnea Gastrointestinal : No Nausea, No Vomiting, No Diarrhea, No Constipation, No abdominal Pain, No Hematochezia, No Melena Genitourinary : no irregular bleeding, No Dysuria, No Urinary Frequency, No Hematuria, No Urinary Incontinence, No Urgency, No Flank Pain, No Urinary Flow Changes, No Hesitancy Musculoskeletal : No joint pain, No Myalgias, No Joint Swelling Skin : No Skin Lesions, No rash Neuro : No Weakness, No Numbness, No Paresthesias, No Loss of Consciousness, No Dizziness, No Headache Psych : Complaining of feeling anxious, hearing voices, denies SI or HI Heme/Lymph: No Bruising, No Bleeding,No Lymphadenopathy Endocrine : No Polyuria, No Polydipsia, No Temperature Intolerance [facility] Past Medical History Medical History Acetaminophen overdose Borderline personality disorder Bronchitis Depression Diabetes type 2, controlled Full body hives GERD (gastroesophageal reflux disease) History of attempted suicide History of non-suicidal self-harm Hyperlipidemia Hypomagnesemia Major depression MDD (major depressive disorder), recurrent episode, severe Mood disorder Overdose PTSD (post-traumatic stress disorder) Suicide attempt Suicide attempt by acetaminophen overdose Social History Social History Household Members: Other Household Members Other:: halfway Housing: Other Housing Other:: halfway Do you presently have visiting nurse or other home services: No Unable to assess alcohol history related to: Unknown Alcohol intake: never Patient Tobacco Use Status: Current everyday Tobacco user Tobacco use type: Cigarette Cigarette Packs Per Day: 1 Cigarettes Per Day: 16 Years Smoked: 20 e-Cigarette/Vaping Use: Never Used Substance Use Type: Marijuana Advance Directives: No Advance Directives Information Provided: No service: No Current occupational status: unemployed and disabled Sexual orientation: Don't Know Physical Exam Vital Signs: Vital Signs: Last Vital Signs Temp 99 F 03/13/23 19:32 Pulse 112 H 03/13/23 19:32 Resp 16 03/13/23 19:32 BP 139/83 03/13/23 19:32 Pulse Ox 94 03/13/23 19:32 O2 Del Method Room Air 03/13/23 19:32 BMI result Body Mass Index 37.9 Const: Other: Appearance: Alert. Oriented X3. No acute distress. Eyes: Pupils equal, round and reactive to light. ENT: Pharynx normal. Neck: Normal inspection. Neck supple. No lymph nodes noted. No crepitus CVS: Normal heart rate and rhythm. Pulses normal. Normal S1 and S2 Respiratory: No respiratory distress. Breath sounds normal. No Wheezing. No rales Abdomen: Soft and nontender. No rigidity. No distention. Skin: Skin warm and dry. Normal skin color. Normal skin turgor. Extremities: No lower extremity edema. No Lacerations. No Rash Neuro: Oriented X 3. No motor deficit. No sensory deficit. Moving all extremities. No slurred speech. CN 2 through 12 grossly intact Psych: calm, cooperative, normal affect Course Course Course Narrative: -patient requesting to be seen by the care team. Patient is not SI or HI -care team consult pending -labs pending -physician observations started at 20:06 -patient has been informed that today there is a large list of patients that care team needs to see before getting to her. Patient agreeable to stay. However, according to the care team staff, if the patient wants to go before she is seen, she can be discharged. Of note, patient ran out of her allowed rides back home per month. Therefore, patient will need to provide her own right, or the halfway will pick her up in the morning -physician observation started at 20:00 Medical Decision Making Medical Decision Making MDM Narrative: -care team evaluated the patient, patient today for discharge. Patient's halfway will be picking her up -patient states that she is not sure if she is hearing voices or if it was a thought. No SI or HI. Lab Data 03/13/23 20:04 03/13/23 20:04 Labs: Lab Results 03/13/23 03/13/23 03/13/23 Range/Units 20:04 20:04 20:04 WBC 9.4 (4.8-10.8) X10*3/uL RBC 4.05 L (4.20-5.50) X10*6/uL Hgb 11.4 L (12.0-16.0) g/dl Hct 35.7 L (37.0-47.0) % MCV 88.1 (80.0-98.0) fL MCH 28.1 (27.0-33.0) pg MCHC 31.9 (31.0-35.0) g/dl RDW 13.6 (11.0-16.0) % Plt Count 300 (160-400) X10*3/uL MPV 9.7 (9.4-12.3) fL Immature Gran % (Auto) 0.6 H (0.0-0.4) % Neut % (Auto) 62.4 (45-73) % Lymph % (Auto) 22.9 (20-40) % [place] % (Auto) 8.7 (2-11) % Eos % (Auto) 4.8 H (0-4) % Baso % (Auto) 0.6 (0-2) % Lymph # (Auto) 2.2 (1.2-4.9) X10*3/uL [place] # (Auto) 0.8 (0.1-1.2) X10*3/uL Eos # (Auto) 0.5 H (0.0-0.4) X10*3/uL Baso # (Auto) 0.1 (0.0-0.2) X10*3/uL Abs Immat Gran (auto) 0.06 H (0.00-0.03) X10*3/uL Absolute Neuts (auto) 5.9 (2.0-8.3) x10*3/uL Absolute Nucleated RBC 0.000 (0.0-0.012) X10*3/uL Nucleated RBC % (auto) 0.0 (0.0-0.2) /100WBC Sodium 139 (135-145) mmol/L Potassium 3.9 (3.3-5.1) mmol/L Chloride 106 (96-108) mmol/L Carbon Dioxide 25 (22-29) mmol/L Anion Gap 12 (12-20) BUN 9 (9-16) mg/dL Creatinine 0.82 (0.5-1.4) mg/dL Estim Creat Clear Calc 106.9 Estimated GFR > 60 Random Glucose 128 H (60-115) mg/dL Calcium 9.2 (8.4-10.2) mg/dL Total Bilirubin 0.2 (0.0-1.0) mg/dL AST 17 (5-31) U/L ALT 17 (0-31) U/L Alkaline Phosphatase 125 H (39-117) U/L Total Protein 7.1 (6.5-8.0) g/dL Albumin 4.2 (3.5-5.0) g/dL Urine Color Urine Appearance Urine pH (5.0-9.0) Ur Specific [place] (1.005-1.025) Urine Protein (Neg-Trace) mg/dL Urine Glucose (UA) (Negative) mg/dL Urine Ketones (Negative) mg/dL Urine Blood (Negative) Urine Nitrite (Negative) Ur Leukocyte Esterase (Negative) Urine RBC (0-2) /HPF Urine WBC (0-5) /HPF Ur Squamous Epith Cells (0-2) /HPF Urine Bacteria (None Seen) Hyaline Casts (0-2) /LPF Salicylates < 5.0 L (15-30) mg/dL Acetaminophen < 17 (<30) mcg/mL Ethyl Alcohol < 10 mg/dL COVID-19 ([facility]) Negative (Negative) COVID-19 Clin Com See Note 03/13/23 Range/Units 20:20 WBC (4.8-10.8) X10*3/uL RBC (4.20-5.50) X10*6/uL Hgb (12.0-16.0) g/dl Hct (37.0-47.0) % MCV (80.0-98.0) fL MCH (27.0-33.0) pg MCHC (31.0-35.0) g/dl RDW (11.0-16.0) % Plt Count (160-400) X10*3/uL MPV (9.4-12.3) fL Immature Gran % (Auto) (0.0-0.4) % Neut % (Auto) (45-73) % Lymph % (Auto) (20-40) % [place] % (Auto) (2-11) % Eos % (Auto) (0-4) % Baso % (Auto) (0-2) % Lymph # (Auto) (1.2-4.9) X10*3/uL [place] # (Auto) (0.1-1.2) X10*3/uL Eos # (Auto) (0.0-0.4) X10*3/uL Baso # (Auto) (0.0-0.2) X10*3/uL Abs Immat Gran (auto) (0.00-0.03) X10*3/uL Absolute Neuts (auto) (2.0-8.3) x10*3/uL Absolute Nucleated RBC (0.0-0.012) X10*3/uL Nucleated RBC % (auto) (0.0-0.2) /100WBC Sodium (135-145) mmol/L Potassium (3.3-5.1) mmol/L Chloride (96-108) mmol/L Carbon Dioxide (22-29) mmol/L Anion Gap (12-20) BUN (9-16) mg/dL Creatinine (0.5-1.4) mg/dL Estim Creat Clear Calc Estimated GFR Random Glucose (60-115) mg/dL Calcium (8.4-10.2) mg/dL Total Bilirubin (0.0-1.0) mg/dL AST (5-31) U/L ALT (0-31) U/L Alkaline Phosphatase (39-117) U/L Total Protein (6.5-8.0) g/dL Albumin (3.5-5.0) g/dL Urine Color Yellow Urine Appearance Cloudy Urine pH 5.5 (5.0-9.0) Ur Specific [place] <= 1.005 (1.005-1.025) Urine Protein Negative (Neg-Trace) mg/dL Urine Glucose (UA) Negative (Negative) mg/dL Urine Ketones Negative (Negative) mg/dL Urine Blood Moderate (2+) H (Negative) Urine Nitrite Positive H (Negative) Ur Leukocyte Esterase Large (3+) H (Negative) Urine RBC 0-2 (0-2) /HPF Urine WBC 21-50 H (0-5) /HPF Ur Squamous Epith Cells 0-2 (0-2) /HPF Urine Bacteria 4+ (None Seen) Hyaline Casts 0-2 (0-2) /LPF Salicylates (15-30) mg/dL Acetaminophen (<30) mcg/mL Ethyl Alcohol mg/dL COVID-19 ([facility]) (Negative) COVID-19 Clin Com Discharge Plan Discharge Clinical Impression: Acute anxiety Patient Disposition: Home, Self-Care Instructions: Anxiety (ED) Additional Instructions: Please follow-up with your primary care physician tomorrow. If you have any worsening or new symptoms, please return to the emergency room or call 911 Prescriptions: No Action ferrous sulfate 325 mg (65 mg iron) Tablet 325 mg PO DAILY benztropine [Cogentin] 1 mg Tablet 1 mg PO BID fluoxetine 40 mg capsule 2 cap PO DAILY albuterol sulfate [Ventolin HFA] 90 mcg/actuation HFA aerosol inhaler 2 puff inhalation Q4-6H PRN (Reason: Shortness Of Breath Or Wheezing) fluphenazine HCl 5 mg tablet 1 tab PO BID chlorpromazine 50 mg tablet 1 tab PO TID PRN (Reason: Agitation) prazosin 1 mg Capsule 4 mg PO BEDTIME 30 Days Qty: 120 0RF Protocol: Hold for SBP< HOLD for SBP < : 90 trazodone 150 mg tablet 1 tab PO BEDTIME meclizine 25 mg tablet 25 mg PO DAILY PRN (Reason: dizziness) Qty: 6 0RF metformin 500 mg tablet 500 mg PO BIDWM atorvastatin 10 mg tablet 10 mg PO BEDTIME pantoprazole 40 mg tablet,delayed release (DR/EC) 40 mg PO DAILY@0630 montelukast 10 mg tablet 10 mg PO BEDTIME lisinopril 5 mg tablet 5 mg PO DAILY mirtazapine 15 mg tablet 7.5 mg PO BEDTIME sennosides [senna] 8.6 mg tablet 17.2 mg PO BEDTIME PRN (Reason: constipation) lactulose 10 gram/15 mL solution 30 ml PO BID PRN (Reason: Constipation) nystatin 100,000 unit/gram powder 1 appl topical BID cephalexin 500 mg capsule 500 mg PO QID Interventions: [place]-Suicide Risk Severity Scale Last Done: 03/13/23 20:00
[2023-03-13 20:08] LABS: MANUAL DIFF FLAG NO
[2023-03-13 20:11] LABS: Basophils Absolute Auto 0.1 X10*3/uL (0.0-0.2); Basophils Percent Auto 0.6 % (0-2); Eosinophils Absolute Auto 0.5 X10*3/uL (0.0-0.4); Eosinophils Percent Auto 4.8 % (0-4); Hematocrit 35.7 % (37.0-47.0); Hemoglobin 11.4 g/dl (12.0-16.0); Imm Gran Abs Auto 0.06 X10*3/uL (0.00-0.03); Imm Gran Pct Auto 0.6 % (0.0-0.4); Lymphocytes Absolute Auto 2.2 X10*3/uL (1.2-4.9); Lymphocytes Percent Auto 22.9 % (20-40); Mean Corpuscular HGB Conc 31.9 g/dl (31.0-35.0); Mean Corpuscular Hemoglobin 28.1 pg (27.0-33.0); Mean Corpuscular Volume 88.1 fL (80.0-98.0); Mean Platelet Volume 9.7 fL (9.4-12.3); Monocytes Absolute Auto 0.8 X10*3/uL (0.1-1.2); Monocytes Percent Auto 8.7 % (2-11); Neutrophils Absolute Auto 5.9 x10*3/uL (2.0-8.3); Neutrophils Percent Auto 62.4 % (45-73); Platelet Count 300 X10*3/uL (160-400); Red Blood Count 4.05 X10*6/uL (4.20-5.50); Red Cell Distribution Width 13.6 % (11.0-16.0); White Blood Count 9.4 X10*3/uL (4.8-10.8)
[2023-03-13 20:27] LABS: Acetaminophen LAB < 17 mcg/mL (<30); Alanine Aminotransferase 17 U/L (0-31); Albumin Level 4.2 g/dL (3.5-5.0); Alkaline Phosphatase 125 U/L (39-117); Anion Gap 12 (12-20); Aspartate Amino Transferase 17 U/L (5-31); Bilirubin Total 0.2 mg/dL (0.0-1.0); Blood Urea Nitrogen 9 mg/dL (9-16); Calcium 9.2 mg/dL (8.4-10.2); Carbon Dioxide 25 mmol/L (22-29); Chloride 106 mmol/L (96-108); Creatinine Clr Calc Pharmacy 106.9; Estimated Glomerular Filt Rate > 60; Ethanol < 10 mg/dL; Glucose Random 128 mg/dL (60-115); Potassium 3.9 mmol/L (3.3-5.1); Salicylate < 5.0 mg/dL (15-30); Sodium 139 mmol/L (135-145); Total Protein 7.1 g/dL (6.5-8.0)
[2023-03-13 20:28] LABS: COVID-19 Test Negative (Negative); IDNOW Serial# 6674DD1D
[2023-03-13 20:35] LABS: Appearance Urine Cloudy; Color Urine Yellow; Glucose Urine UA Negative (Negative); Leukocyte Esterase Urine Large (3+) (Negative); Nitrite Urine Positive (Negative); PH 5.5 (5.0-9.0); Specific Gravity - Urine <= 1.005 (1.005-1.025); UMIC TRIGGER UA YES; Urine Blood Moderate (2+) (Negative); Urine Ketones Negative (Negative); Urine Protein Negative (Neg-Trace)
[2023-03-13 20:50] LABS: Bacteria Urine 4+ (None Seen); Hyaline Casts Urine 0-2 /LPF (0-2); RBC Urine 0-2 /HPF (0-2); Squamous Epithelial Cell Urine 0-2 /HPF (0-2); WBC Urine 21-50 /HPF (0-5)
[2023-03-13 21:49] LABS: Amphetamine Screen Urine Not Detected (Not Detect); Barbiturates, Urine Not Detected (Not Detect); Benzodiazepines Screen Urine Not Detected (Not Detect); Cannabinoid Screen Urine Not Detected (Not Detect); Cocaine Screen Urine Not Detected (Not Detect); Fentanyl, urine Not Detected (Not Detect); Opiate Screen Urine Not Detected (Not Detect); Phencyclidine Screen Urine Not Detected (Not Detect)
== END 2023-03-13 21:42 | disposition home or self-care (01) ==
PROVIDERS: Emergency Provider Emergency Medicine
DX: F41.9 Anxiety disorder, unspecified (principal); R45.851 Suicidal ideations; R44.0 Auditory hallucinations; F31.9 Bipolar disorder, unspecified; F60.3 Borderline personality disorder; Z20.822 Contact with and (suspected) exposure to COVID-19; E11.9 Type 2 diabetes mellitus without complications; E78.5 Hyperlipidemia, unspecified; D64.9 Anemia, unspecified; F12.90 Cannabis use, unspecified, uncomplicated; E66.9 Obesity, unspecified; Z68.37 Body mass index [BMI] 37.0-37.9, adult; F17.210 Nicotine dependence, cigarettes, uncomplicated; Z91.52 Personal history of nonsuicidal self-harm; Z91.51 Personal history of suicidal behavior; Z79.84 Long term (current) use of oral hypoglycemic drugs; Z79.899 Other long term (current) drug therapy; Z79.02 Long term (current) use of antithrombotics/antiplatelets
CPT/HCPCS: 36415; 80053; 80143; 80179; 80307; 81001; 85025; 87635; 99284

== ENCOUNTER 2023-03-16 18:27 | Emergency (ER) | payer MEDICARE, MEDICAID, SELFPAY ==
[2023-03-16 18:38] VITALS: BP 126/82; PULSE 94; O2SAT 97
[2023-03-16 18:40] VITALS: BP 131/59; PULSE 91; RESP 20; TEMP 37; O2SAT 97; BMI 36.3
--- NOTE | 2023-03-16 18:53 | ECG_ITS ---
Test Reason : MEDICAL CLEARENCE Blood Pressure : / mmHG Vent. Rate : 077 BPM Atrial Rate : 077 BPM P-R Int : 162 ms QRS Dur : 080 ms QT Int : 388 ms P-R-T Axes : 041 067 053 degrees QTc Int : 439 ms Normal sinus rhythm Normal ECG When compared with ECG of 12-FEB-2023 16:46, No significant change was found Referred By: Nicki Schreiber Electronically Signed By:DONALD HOOKER MD
--- NOTE | 2023-03-16 18:54 | ED_ITS ---
HPI - General Adult General Chief complaint: Psychiatric Symptoms Stated complaint: SI Time Seen by Provider: 03/16/23 18:50 Source: patient and EMS Mode of arrival: EMS Limitations: no limitations History of Present Illness HPI narrative: Patient is a 47 year old assigned female at with a history of PTSD and a nxiety presenting to the emergency department today with SI. Patient states that she is currently suicidal and having increased flash backs. Patient denies any dizziness, lightheadedness, abdominal pain, nausea, vomiting, fever, chills, blurry vision, double vision, loss of vision, chest pain, difficulty breathing, shortness of breath, back pain, night sweats, pain with urination, increased urinary frequency, increased urinary urgency, blood in her urine or stool, syncope or a near syncopal episode, recent trauma or falls, bowel incontinence, bladder incontinence, bowel retention, bladder retention, or any other complaints at this time. Relieving factors: none Exacerbating factors: none Associated symptoms: denies other symptoms Treatments prior to arrival: none Related Data Home Medications Medication Instructions Recorded Confirmed trazodone 150 mg tablet 1 tab PO BEDTIME 09/23/22 03/16/23 benztropine 1 mg tablet 1 mg PO BID 12/19/22 03/16/23 ferrous sulfate 325 mg (65 mg 325 mg PO DAILY 12/19/22 03/16/23 iron) tablet albuterol sulfate 90 mcg/actuation 2 puff inhalation Q4-6H PRN 12/24/22 03/16/23 aerosol inhaler (Ventolin HFA) Shortness Of Breath Or Wheezing chlorpromazine 50 mg tablet 1 tab PO TID PRN Agitation 12/24/22 03/16/23 fluoxetine 40 mg capsule 2 cap PO DAILY 12/24/22 03/16/23 fluphenazine HCl 5 mg tablet 1 tab PO BID 12/24/22 03/16/23 atorvastatin 10 mg tablet 10 mg PO BEDTIME 03/05/23 03/16/23 lactulose 10 gram/15 mL oral 30 ml PO BID PRN Constipation 03/05/23 03/16/23 solution lisinopril 5 mg tablet 5 mg PO DAILY 03/05/23 03/16/23 metformin 500 mg tablet 500 mg PO BIDWM 03/05/23 03/16/23 mirtazapine 15 mg tablet 7.5 mg PO BEDTIME 03/05/23 03/16/23 montelukast 10 mg tablet 10 mg PO BEDTIME 03/05/23 03/16/23 nystatin 100,000 unit/gram topical 1 appl topical BID 03/05/23 03/16/23 powder pantoprazole 40 mg tablet,delayed 40 mg PO DAILY@0630 03/05/23 03/16/23 release sennosides 8.6 mg tablet (senna) 17.2 mg PO BEDTIME PRN constipation 03/05/23 03/16/23 cephalexin 500 mg capsule 500 mg PO QID 03/13/23 03/16/23 Previous Rx's Medication Instructions Recorded prazosin 1 mg capsule 4 mg PO BEDTIME 30 days #120 caps 10/18/21 meclizine 25 mg tablet 25 mg PO DAILY PRN dizziness #6 01/24/23 tabs Allergies Allergy/AdvReac Type Severity Reaction Status Date / Time Fish Containing Products Allergy Severe ANAPHYLAXIS Verified 03/03/23 16:23 codeine [Codeine] Allergy Intermediate RASH Verified 03/03/23 16:23 Penicillins Allergy Intermediate RASH Verified 03/03/23 16:23 prednisone [Prednisone] Allergy Intermediate RASH Verified 03/03/23 16:23 Sulfa (Sulfonamide Allergy Intermediate RASH Verified 03/03/23 16:23 Antibiotics) [Sulfa (Sulfonamides)] azithromycin [AZITHROMYCIN] AdvReac Severe RASH Verified 03/03/23 16:23 ziprasidone [From Geodon] AdvReac Intermediate dysuria, Verified 03/03/23 16:23 rash Review of Systems Constitutional: Constitutional: Reports no additional constitutional complaints, Denies chills, Denies fever(s) and Denies night sweats Eyes: Eyes: Reports no additional eye complaints, Denies blurry vision, Denies change in vision, Denies diplopia, Denies eye discharge, Denies loss of vision and Denies eye pain ENT: Denies dizziness Cardiovascular: Cardiovascular: Reports no additional cardiovascular complaints, Denies chest pain, Denies lightheadedness, Denies Loss of Con sciousness and Denies dyspnea Respiratory: Respiratory: Reports no additional respiratory complaints and Denies dyspnea Gastrointestinal: Gastrointestinal: Reports no additional gastrointestinal complaints, Denies abdominal pain, Denies melena, Denies hematochezia, Denies change in bowel habits and Denies change in stool character Genitourinary: Genitourinary: Denies hematuria, Denies urinary frequency, Denies dysuria, Denies urinary incontinence, Denies urinary hesitancy and Denies urinary urgency Musculoskeletal: Musculoskeletal: Reports no additional musculoskeletal complaints, Denies numbness and Denies tingling Neurologic: Denies dizziness, Denies loss of vision, Denies numbness and Denies tingling Psychiatric: Psychiatric: Denies homicidal ideation and Reports suicidal ideation Endocrine: Endocrine: Reports no additional endocrine complaints Hematologic/Lymphatic: Hematologic/Lymphatic: Reports no additional hematologic/lymphatic complaints Allergic/Immunologic: Allergic/Immunologic: Reports no additional allergic/im munologic complaints PMFSH Past Medical History Attestation statement: The following information was validated with the patient. 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: Other Household Members Other:: skilled nursing Housing: Other Housing Other:: skilled nursing Do you presently have visiting nurse or other home services: No Unable to assess alcohol history related to: Unknown Alcohol intake: never Patient Tobacco Use Status: Current everyday Tobacco user Tobacco use type: Cigarette Cigarette Packs Per Day: 1 Cigarettes Per Day: 16 Years Smoked: 20 Smoked in Last 30 Days: Yes e-Cigarette/Vaping Use: Never Used Use of substances other than those prescribed or required for medical reasons: No Substance Use Type: Marijuana Advance Directives: No Advance Directives Information Provided: Yes service: No Current occupational status: unemployed and disabled Sexual orientation: Don't Know Physical Exam ED Vital Signs: Vital Signs - 24 hr 03/16/23 18:40 Temperature 98.6 F Pulse Rate 91 Respiratory Rate 20 Blood Pressure 131/59 L Pulse Oximetry 97 Oxygen Delivery Method Room Air BMI result Body Mass Index 36.3 Const General: cooperative, no acute distress, alert and awake Nutritional Appearance: well nourished Orientation/consciousness: patient oriented x3 Limitations: no limitations HENMT Head: Yes normal to inspection and Yes atraumatic Ears: hearing grossly normal bilaterally and external ears normal General nose exam: Normal external nose present, no nasal discharge noted and no epistaxis Face and sinus: Yes normal facial exam, No abrasion and No laceration Mouth: Normal oral and palatal mucosa present, no drooling and no muffled voice Eyes General: appearance normal, both eyes and all related structures Periorbital: periorbital findings normal Eyelids: Yes eyelids normal Conjunctivae: conjunctivae normal Pupils: Equal, round and reactive pupils present EOM: EOMs intact bilaterally Neck Neck: Yes normal visual inspection, Yes full ROM and Yes no lymphadenopathy Chest Chest palpation & inspection: normal inspection of the chest Resp Effort & Inspection: normal respiratory effort and able to speak in complete sentences Auscultation: clear to auscultation bilaterally Cardio Rate: regular rate Rhythm: regular rhythm GI Inspection: Yes normal to inspection Neuro General: patient oriented x3 and moves all extremities Cranial nerves: Yes Equal, round and reactive pupils present Cognition (Neuro): normal cognition Motor exam (neuro): 5/5 motor strength present throughout Sensory Exam: Normal double simultaneous stimulation for sensation Coordination: [id number] test normal Extrem General: Yes normal to inspection, Yes full ROM and Yes capillary refill normal Psych Appearance: grossly normal Mental Status: mental status grossly normal Affect: normal affect Attitude: cooperative Thought process: Normal thought process present Thought content: Normal thought content present Insight: Good insight present (Psych) Medical Decision Making Medical Decision Making [facility] Narrative: Patient is a 47 year old assigned female at with a history of PTSD and anxiety presenting to the emergency department today with suicidal ideation. Patient's physical exam was unremarkable. Patient's blood work was unremarkable. Patient's urine showed no acute process. Patient's EKG was unremarkable. I explained my physical exam findings as well as all test results to the patient. I answered all questions asked by the patient. Patient is awaiting CARE team evaluation. Differential Diagnosis Differential Diagnoses: The differential diagnosis associated with the presentation includes Suicidal ideation Lab Data [facility] Lab Attestation statement: I reviewed the patient's lab results. My interpretation of these studies and their corresponding values is that they are grossly normal. 03/16/23 19:18 03/16/23 19:18 Labs: Lab Results 03/16/23 03/16/23 03/16/23 Range/Units 19:17 19:17 19:18 WBC (4.8-10.8) X10*3/uL RBC (4.20-5.50) X10*6/uL Hgb (12.0-16.0) g/dl Hct (37.0-47.0) % MCV (80.0-98.0) fL MCH (27.0-33.0) pg MCHC (31.0-35.0) g/dl RDW (11.0-16.0) % Plt Count (160-400) X10*3/uL MPV (9.4-12.3) fL Immature Gran % (Auto) (0.0-0.4) % Neut % (Auto) (45-73) % Lymph % (Auto) (20-40) % [place] % (Auto) (2-11) % Eos % (Auto) (0-4) % Baso % (Auto) (0-2) % Lymph # (Auto) (1.2-4.9) X10*3/uL [place] # (Auto) (0.1-1.2) X10*3/uL Eos # (Auto) (0.0-0.4) X10*3/uL Baso # (Auto) (0.0-0.2) X10*3/uL Abs Immat Gran (auto) (0.00-0.03) X10*3/uL Absolute Neuts (auto) (2.0-8.3) x10*3/uL Absolute Nucleated RBC (0.0-0.012) X10*3/uL Nucleated RBC % (auto) (0.0-0.2) /100WBC Sodium 137 (135-145) mmol/L Potassium 4.0 (3.3-5.1) mmol/L Chloride 104 (96-108) mmol/L Carbon Dioxide 23 (22-29) mmol/L Anion Gap 14 (12-20) BUN 9 (9-16) mg/dL Creatinine 0.85 (0.5-1.4) mg/dL Estim Creat Clear Calc 97.2 Estimated GFR > 60 Random Glucose 134 H (60-115) mg/dL Calcium 8.9 (8.4-10.2) mg/dL Total Bilirubin 0.3 (0.0-1.0) mg/dL AST 18 (5-31) U/L ALT 18 (0-31) U/L Alkaline Phosphatase 120 H (39-117) U/L Total Protein 7.0 (6.5-8.0) g/dL Albumin 4.3 (3.5-5.0) g/dL Urine Color Yellow Urine Appearance Clear Urine pH 5.5 (5.0-9.0) Ur Specific [place] <= 1.005 (1.005-1.025) Urine Protein Negative (Neg-Trace) mg/dL Urine Glucose (UA) Negative (Negative) mg/dL Urine Ketones Negative (Negative) mg/dL Urine Blood Negative (Negative) Urine Nitrite Negative (Negative) Ur Leukocyte Esterase Trace H (Negative) Urine RBC 0-2 (0-2) /HPF Urine WBC 0-5 (0-5) /HPF Ur Squamous Epith Cells 3-5 (0-2) /HPF Urine Bacteria None Seen (None Seen) Hyaline Casts 0-2 (0-2) /LPF Urine Test (NEGATIVE) Salicylates < 5.0 L (15-30) mg/dL Urine Opiates Screen (Not Detect) Urine Fentanyl Screen (Not Detect) Acetaminophen < 17 (<30) mcg/mL Ur Barbiturates Screen (Not Detect) Ur Phencyclidine Scrn (Not Detect) Ur Amphetamines Screen (Not Detect) U Benzodiazepines Scrn (Not Detect) Urine Cocaine Screen (Not Detect) U Marijuana (THC) Screen (Not Detect) Ethyl Alcohol < 10 mg/dL COVID-19 (NICK) Negative (Negative) COVID-19 Clin Com See Note 03/16/23 03/16/23 03/16/23 Range/Units 19:18 19:18 19:18 WBC 8.1 (4.8-10.8) X10*3/uL RBC 4.05 L (4.20-5.50) X10*6/uL Hgb 11.3 L (12.0-16.0) g/dl Hct 35.8 L (37.0-47.0) % MCV 88.4 (80.0-98.0) fL MCH 27.9 (27.0-33.0) pg MCHC 31.6 (31.0-35.0) g/dl RDW 13.7 (11.0-16.0) % Plt Count 289 (160-400) X10*3/uL MPV 9.4 (9.4-12.3) fL Immature Gran % (Auto) 0.5 H (0.0-0.4) % Neut % (Auto) 63.1 (45-73) % Lymph % (Auto) 23.1 (20-40) % [place] % (Auto) 8.5 (2-11) % Eos % (Auto) 4.2 H (0-4) % Baso % (Auto) 0.6 (0-2) % Lymph # (Auto) 1.9 (1.2-4.9) X10*3/uL [place] # (Auto) 0.7 (0.1-1.2) X10*3/uL Eos # (Auto) 0.3 (0.0-0.4) X10*3/uL Baso # (Auto) 0.1 (0.0-0.2) X10*3/uL Abs Immat Gran (auto) 0.04 H (0.00-0.03) X10*3/uL Absolute Neuts (auto) 5.1 (2.0-8.3) x10*3/uL Absolute Nucleated RBC 0.000 (0.0-0.012) X10*3/uL Nucleated RBC % (auto) 0.0 (0.0-0.2) /100WBC Sodium (135-145) mmol/L Potassium (3.3-5.1) mmol/L Chloride (96-108) mmol/L Carbon Dioxide (22-29) mmol/L Anion Gap (12-20) BUN (9-16) mg/dL Creatinine (0.5-1.4) mg/dL Estim Creat Clear Calc Estimated GFR Random Glucose (60-115) mg/dL Calcium (8.4-10.2) mg/dL Total Bilirubin (0.0-1.0) mg/dL AST (5-31) U/L ALT (0-31) U/L Alkaline Phosphatase (39-117) U/L Total Protein (6.5-8.0) g/dL Albumin (3.5-5.0) g/dL Urine Color Urine Appearance Urine pH (5.0-9.0) Ur Specific [place] (1.005-1.025) Urine Protein (Neg-Trace) mg/dL Urine Glucose (UA) (Negative) mg/dL Urine Ketones (Negative) mg/dL Urine Blood (Negative) Urine Nitrite (Negative) Ur Leukocyte Esterase (Negative) Urine RBC (0-2) /HPF Urine WBC (0-5) /HPF Ur Squamous Epith Cells (0-2) /HPF Urine Bacteria (None Seen) Hyaline Casts (0-2) /LPF Urine Test NEGATIVE (NEGATIVE) Salicylates (15-30) mg/dL Urine Opiates Screen Not Detected (Not Detect) Urine Fentanyl Screen Not Detected (Not Detect) Acetaminophen (<30) mcg/mL Ur Barbiturates Screen Not Detected (Not Detect) Ur Phencyclidine Scrn Not Detected (Not Detect) Ur Amphetamines Screen Not Detected (Not Detect) U Benzodiazepines Scrn Not Detected (Not Detect) Urine Cocaine Screen Not Detected (Not Detect) U Marijuana (THC) Screen Not Detected (Not Detect) Ethyl Alcohol mg/dL COVID-19 (NICK) (Negative) COVID-19 Clin Com Independent Interpretation I performed an independent interpretation of an: EKG Interpretation: Vent. Rate: 077 BPM ? ? Atrial Rate: 077 BPM P-R Int: 162 ms? QRS Dur: 080 ms QT Int: 388 ms ? ? ? P-R-T Axes: 041 067 053 degrees QTc Int: 439 ms ? Normal sinus rhythm Normal ECG When compared with ECG of 12-FEB-2023 16:46, No significant change was found DD/ 45 Independent Historian Clinical information obtained from an independent historian. History obtained from or confirmed by: EMS (EMS provided additional history and confirmed the history given by the patient) Critical Care Time Critical Care Time Critical Care Time: Yes Total Critical Care Time: 30 Attestation: I spent 30 minutes of Critical Care Time with this patient. This does not include time spent on separately reported billable procedures. Discharge Plan Discharge Clinical Impression: Suicidal ideation Patient Disposition: Still a Patient Prescriptions: No Action ferrous sulfate 325 mg (65 mg iron) Tablet 325 mg PO DAILY benztropine [Cogentin] 1 mg Tablet 1 mg PO BID fluoxetine 40 mg capsule 2 cap PO DAILY albuterol sulfate [Ventolin HFA] 90 mcg/actuation HFA aerosol inhaler 2 puff inhalation Q4-6H PRN (Reason: Shortness Of Breath Or Wheezing) fluphenazine HCl 5 mg tablet 1 tab PO BID chlorpromazine 50 mg tablet 1 tab PO TID PRN (Reason: Agitation) prazosin 1 mg Capsule 4 mg PO BEDTIME 30 Days Qty: 120 0RF Protocol: Hold for SBP< HOLD for SBP < : 90 trazodone 150 mg tablet 1 tab PO BEDTIME meclizine 25 mg tablet 25 mg PO DAILY PRN (Reason: dizziness) Qty: 6 0RF metformin 500 mg tablet 500 mg PO BIDWM atorvastatin 10 mg tablet 10 mg PO BEDTIME pantoprazole 40 mg tablet,delayed release (DR/EC) 40 mg PO DAILY@0630 montelukast 10 mg tablet 10 mg PO BEDTIME lisinopril 5 mg tablet 5 mg PO DAILY mirtazapine 15 mg tablet 7.5 mg PO BEDTIME sennosides [senna] 8.6 mg tablet 17.2 mg PO BEDTIME PRN (Reason: constipation) lactulose 10 gram/15 mL solution 30 ml PO BID PRN (Reason: Constipation) nystatin 100,000 unit/gram powder 1 appl topical BID cephalexin 500 mg capsule 500 mg PO QID Interventions: [place]-Suicide Risk Severity Scale Last Done: 03/16/23 19:12
--- NOTE | 2023-03-16 19:17 | PC.NURSE ---
Pt now stating she is no longer SI and would like to go home.
[2023-03-16 19:23] LABS: MANUAL DIFF FLAG NO
[2023-03-16 19:27] LABS: Basophils Absolute Auto 0.1 X10*3/uL (0.0-0.2); Basophils Percent Auto 0.6 % (0-2); Eosinophils Absolute Auto 0.3 X10*3/uL (0.0-0.4); Eosinophils Percent Auto 4.2 % (0-4); Hematocrit 35.8 % (37.0-47.0); Hemoglobin 11.3 g/dl (12.0-16.0); Imm Gran Abs Auto 0.04 X10*3/uL (0.00-0.03); Imm Gran Pct Auto 0.5 % (0.0-0.4); Lymphocytes Absolute Auto 1.9 X10*3/uL (1.2-4.9); Lymphocytes Percent Auto 23.1 % (20-40); Mean Corpuscular HGB Conc 31.6 g/dl (31.0-35.0); Mean Corpuscular Hemoglobin 27.9 pg (27.0-33.0); Mean Corpuscular Volume 88.4 fL (80.0-98.0); Mean Platelet Volume 9.4 fL (9.4-12.3); Monocytes Absolute Auto 0.7 X10*3/uL (0.1-1.2); Monocytes Percent Auto 8.5 % (2-11); Neutrophils Absolute Auto 5.1 x10*3/uL (2.0-8.3); Neutrophils Percent Auto 63.1 % (45-73); Platelet Count 289 X10*3/uL (160-400); Red Blood Count 4.05 X10*6/uL (4.20-5.50); Red Cell Distribution Width 13.7 % (11.0-16.0); UPreg QC Valid YES; Urine Pregnancy NEGATIVE (NEGATIVE); White Blood Count 8.1 X10*3/uL (4.8-10.8)
[2023-03-16 19:28] LABS: Appearance Urine Clear; Color Urine Yellow; Glucose Urine UA Negative (Negative); Leukocyte Esterase Urine Trace (Negative); Nitrite Urine Negative (Negative); PH 5.5 (5.0-9.0); Specific Gravity - Urine <= 1.005 (1.005-1.025); UMIC TRIGGER UA YES; Urine Blood Negative (Negative); Urine Ketones Negative (Negative); Urine Protein Negative (Neg-Trace)
[2023-03-16 19:31] LABS: Bacteria Urine None Seen (None Seen); Hyaline Casts Urine 0-2 /LPF (0-2); RBC Urine 0-2 /HPF (0-2); WBC Urine 0-5 /HPF (0-5)
[2023-03-16 19:46] LABS: Acetaminophen LAB < 17 mcg/mL (<30); Alanine Aminotransferase 18 U/L (0-31); Albumin Level 4.3 g/dL (3.5-5.0); Alkaline Phosphatase 120 U/L (39-117); Amphetamine Screen Urine Not Detected (Not Detect); Anion Gap 14 (12-20); Aspartate Amino Transferase 18 U/L (5-31); Barbiturates, Urine Not Detected (Not Detect); Benzodiazepines Screen Urine Not Detected (Not Detect); Bilirubin Total 0.3 mg/dL (0.0-1.0); Blood Urea Nitrogen 9 mg/dL (9-16); Calcium 8.9 mg/dL (8.4-10.2); Cannabinoid Screen Urine Not Detected (Not Detect); Carbon Dioxide 23 mmol/L (22-29); Chloride 104 mmol/L (96-108); Cocaine Screen Urine Not Detected (Not Detect); Creatinine Clr Calc Pharmacy 97.2; Estimated Glomerular Filt Rate > 60; Ethanol < 10 mg/dL; Fentanyl, urine Not Detected (Not Detect); Glucose Random 134 mg/dL (60-115); Opiate Screen Urine Not Detected (Not Detect); Phencyclidine Screen Urine Not Detected (Not Detect); Salicylate < 5.0 mg/dL (15-30); Sodium 137 mmol/L (135-145)
[2023-03-16 20:04] LABS: COVID-19 Test Negative (Negative); IDNOW Serial# 08D9AD1C
[2023-03-17 06:13] VITALS: BP 157/88; PULSE 73; RESP 18; TEMP 36.6; O2SAT 96
--- NOTE | 2023-03-17 06:21 | PC.NURSE ---
Patient slept through the night, no distress observed/reported, med rec completed/pending provider's approval, care consult ordered/pending evaluation, VS at base, behavior non concerning, EKG not needed at this time per protocol but provider ordered, will continue to monitor.
--- NOTE | 2023-03-17 08:51 | PC.NURSE ---
Pt awake. Wanting to be discharged home. Care-Team aware. Pt denies SI and SH thoughts, HI, AVH at this time. Social with Staff. Able to make needs Know.
--- NOTE | 2023-03-17 09:05 | MHC.CARE ---
Pt saw t/w in passing and requested to be discharged, Pt stating I feel better and had a difficult time yesterday at change of shift . Pt was not endorsing current SI/HI/VH/AH. CARE Team notified Dr. Allison Pt is requesting to be discharged at this time.
== END 2023-03-17 09:14 | disposition home or self-care (01) ==
PROVIDERS: Physician Assistant Medical; Emergency Provider Emergency Medicine
DX: R45.851 Suicidal ideations (principal); Z20.822 Contact with and (suspected) exposure to COVID-19; R44.0 Auditory hallucinations; F41.9 Anxiety disorder, unspecified; F60.3 Borderline personality disorder; F43.10 Post-traumatic stress disorder, unspecified; F31.9 Bipolar disorder, unspecified; E11.9 Type 2 diabetes mellitus without complications; E78.5 Hyperlipidemia, unspecified; D64.9 Anemia, unspecified; E66.9 Obesity, unspecified; Z68.37 Body mass index [BMI] 37.0-37.9, adult; F17.210 Nicotine dependence, cigarettes, uncomplicated; F12.90 Cannabis use, unspecified, uncomplicated; Z91.52 Personal history of nonsuicidal self-harm; Z91.51 Personal history of suicidal behavior; Z79.84 Long term (current) use of oral hypoglycemic drugs
CPT/HCPCS: 36415; 80053; 80143; 80179; 80307; 81001; 81025; 85025; 87635; 93005; 99285

== ENCOUNTER 2023-03-18 17:11 | Emergency (ER) | payer MEDICARE, MEDICAID, SELFPAY ==
[2023-03-18 17:15] VITALS: BP 124/62; PULSE 86; RESP 18; TEMP 36.1; O2SAT 98; BMI 36.3
[2023-03-18 18:08] LABS: UPreg QC Valid YES; Urine Pregnancy NEGATIVE (NEGATIVE)
[2023-03-18 18:15] LABS: Amphetamine Screen Urine Not Detected (Not Detect); Barbiturates, Urine Not Detected (Not Detect); Benzodiazepines Screen Urine Not Detected (Not Detect); Cannabinoid Screen Urine Not Detected (Not Detect); Cocaine Screen Urine Not Detected (Not Detect); Fentanyl, urine Not Detected (Not Detect); Opiate Screen Urine Not Detected (Not Detect); Phencyclidine Screen Urine Not Detected (Not Detect)
[2023-03-18] MEDS: LORazepam 1 MG TABLET 2 MG PO (19:06)
--- NOTE | 2023-03-18 19:28 | PC.NURSE ---
report received from Milka, RN Pt pacing throughout ED, verbal order from MD Ryan for 2mg Ativan orally, pt medicated and Kimi, MHT with pt
[2023-03-18 20:17] LABS: COVID-19 Test Negative (Negative); IDNOW Serial# 08D9AD1C
--- NOTE | 2023-03-18 22:40 | ED.PSYCH ---
HPI - Psych General Chief Complaint: Psychiatric Symptoms Stated Complaint: SI,HEARING VOICES TO HURT SELF PER EMS Time Seen by Provider: 03/18/23 17:18 Source: patient Mode of arrival: EMS Limitations: no limitations History of Present Illness HPI Narrative: Patient comes to the emergency room via ambulance complaining of hearing voices telling her to hurt herself. Patient feeling anxious, no HI. Patient denies hurting herself prior to arrival, denies ingesting any medications, no cutting. Related Data Home Medications Medication Instructions Recorded Confirmed trazodone 150 mg tablet 1 tab PO BEDTIME 09/23/22 03/16/23 benztropine 1 mg tablet 1 mg PO BID 12/19/22 03/16/23 ferrous sulfate 325 mg (65 mg 325 mg PO DAILY 12/19/22 03/16/23 iron) tablet albuterol sulfate 90 mcg/actuation 2 puff inhalation Q4-6H PRN 12/24/22 03/16/23 aerosol inhaler (Ventolin HFA) Shortness Of Breath Or Wheezing chlorpromazine 50 mg tablet 1 tab PO TID PRN Agitation 12/24/22 03/16/23 fluoxetine 40 mg capsule 2 cap PO DAILY 12/24/22 03/16/23 fluphenazine HCl 5 mg tablet 1 tab PO BID 12/24/22 03/16/23 atorvastatin 10 mg tablet 10 mg PO BEDTIME 03/05/23 03/16/23 lactulose 10 gram/15 mL oral 30 ml PO BID PRN Constipation 03/05/23 03/16/23 solution lisinopril 5 mg tablet 5 mg PO DAILY 03/05/23 03/16/23 metformin 500 mg tablet 500 mg PO BIDWM 03/05/23 03/16/23 mirtazapine 15 mg tablet 7.5 mg PO BEDTIME 03/05/23 03/16/23 montelukast 10 mg tablet 10 mg PO BEDTIME 03/05/23 03/16/23 nystatin 100,000 unit/gram topical 1 appl topical BID 03/05/23 03/16/23 powder pantoprazole 40 mg tablet,delayed 40 mg PO DAILY@0630 03/05/23 03/16/23 release sennosides 8.6 mg tablet (senna) 17.2 mg PO BEDTIME PRN constipation 03/05/23 03/16/23 cephalexin 500 mg capsule 500 mg PO QID 03/13/23 03/16/23 Previous Rx's Medication Instructions Recorded prazosin 1 mg capsule 4 mg PO BEDTIME 30 days #120 caps 10/18/21 meclizine 25 mg tablet 25 mg PO DAILY PRN dizziness #6 01/24/23 tabs Allergies Allergy/AdvReac Type Severity Reaction Status Date / Time Fish Containing Products Allergy Severe ANAPHYLAXIS Verified 03/03/23 16:23 codeine [Codeine] Allergy Intermediate RASH Verified 03/03/23 16:23 Penicillins Allergy Intermediate RASH Verified 03/03/23 16:23 prednisone [Prednisone] Allergy Intermediate RASH Verified 03/03/23 16:23 Sulfa (Sulfonamide Allergy Intermediate RASH Verified 03/03/23 16:23 Antibiotics) [Sulfa (Sulfonamides)] azithromycin [AZITHROMYCIN] AdvReac Severe RASH Verified 03/03/23 16:23 ziprasidone [From Geodon] AdvReac Intermediate dysuria, Verified 03/03/23 16:23 rash Review of Systems Review of Systems: Constitutional : No Weight loss, No Fever, No Chills, No Night Sweats, No Fatigue, No Malaise ENT/Mouth : No Hearing loss, No Ear Pain, No Nasal Congestion, No Sinus Pain, No Hoarseness, No sore throat, No Rhinorrhea, No Swallowing Difficulty Eyes: No Eye Pain, No Swelling, No Redness, No Foreign Body, No Discharge, No Vision Changes Cardiovascular : No Chest Pain, No SOB, No Dyspnea on Exertion, No Orthopnea, No Edema, No Palpitations Respiratory : No Cough, No Sputum, No Wheezing, No Smoke Exposure, No Dyspnea Gastrointestinal : No Nausea, No Vomiting, No Diarrhea, No Constipation, No abdominal Pain, No Hematochezia, No Melena Genitourinary : no irregular bleeding, No Dysuria, No Urinary Frequency, No Hematuria, No Urinary Incontinence, No Urgency, No Flank Pain, No Urinary Flow Changes, No Hesitancy Musculoskeletal : No joint pain, No Myalgias, No Joint Swelling Skin : No Skin Lesions, No rash Neuro : No Weakness, No Numbness, No Paresthesias, No Loss of Consciousness, No Dizziness, No Headache Psych : Complaining of anxiety, hearing voices, no HI Heme/Lymph: No Bruising, No Bleeding,No Lymphadenopathy Endocrine : No Polyuria, No Polydipsia, No Temperature Intolerance PMFSH Past Medical History Medical History Acetaminophen overdose Borderline personality disorder Bronchitis Depression Diabetes type 2, controlled Full body hives GERD (gastroesophageal reflux disease) History of attempted suicide History of non-suicidal self-harm Hyperlipidemia Hypomagnesemia Major depression MDD (major depressive disorder), recurrent episode, severe Mood disorder Overdose PTSD (post-traumatic stress disorder) Suicide attempt Suicide attempt by acetaminophen overdose Social History Social History Household Members: Other Household Members Other:: nursing home Housing: Other Housing Other:: nursing home Do you presently have visiting nurse or other home services: No Unable to assess alcohol history related to: Unknown Alcohol intake: former Patient Tobacco Use Status: Current everyday Tobacco user Tobacco use type: Cigarette Cigarette Packs Per Day: 1 Cigarettes Per Day: 16 Years Smoked: 20 Smoked in Last 30 Days: No e-Cigarette/Vaping Use: Never Used Use of substances other than those prescribed or required for medical reasons: No Substance Use Type: Marijuana Advance Directives: No Advance Directives Information Provided: No service: No Current occupational status: unemployed and disabled Sexual orientation: Don't Know Physical Exam Vital Signs: Vital Signs: Last Vital Signs Temp 97 F 03/18/23 17:15 Pulse 86 03/18/23 17:15 Resp 18 03/18/23 17:15 BP 124/62 03/18/23 17:15 Pulse Ox 98 03/18/23 17:15 O2 Del Method Room Air 03/18/23 17:15 BMI result Body Mass Index 36.3 Const: Other: Appearance: Alert. Oriented X3. No acute distress. Eyes: Pupils equal, round and reactive to light. ENT: Pharynx normal. Neck: Normal inspection. Neck supple. No lymph nodes noted. No crepitus CVS: Normal heart rate and rhythm. Pulses normal. Normal S1 and S2 Respiratory: No respiratory distress. Breath sounds normal. No Wheezing. No rales Abdomen: Soft and nontender. No rigidity. No distention. Skin: Skin warm and dry. Normal skin color. Normal skin turgor. Extremities: No lower extremity edema. No Lacerations. No Rash Neuro: Oriented X 3. No motor deficit. No sensory deficit. Moving all extremities. No slurred speech. CN 2 through 12 grossly intact Psych: calm, cooperative, seems anxious Medications Administered Discontinued Medications Generic Name Dose Route Start Last Admin Trade Name Freq PRN Reason Stop Dose Admin Lorazepam 2 mg 03/18/23 19:04 03/18/23 19:06 Lorazepam 1 Mg Tablet PO 03/18/23 19:05 2 mg ONCE ONE Administration Medical Decision Making Medical Decision Making MDM Narrative: -patient states that she is no longer feeling anxious, denies suicidal homicidal ideation, patient feels ready to go home -care team evaluated the patient, refer discharge Lab Data Labs: Lab Results 03/18/23 03/18/23 03/18/23 Range/Units 17:57 17:57 19:58 Urine Test NEGATIVE (NEGATIVE) Urine Opiates Screen Not Detected (Not Detect) Urine Fentanyl Screen Not Detected (Not Detect) Ur Barbiturates Screen Not Detected (Not Detect) Ur Phencyclidine Scrn Not Detected (Not Detect) Ur Amphetamines Screen Not Detected (Not Detect) U Benzodiazepines Scrn Not Detected (Not Detect) Urine Cocaine Screen Not Detected (Not Detect) U Marijuana (THC) Screen Not Detected (Not Detect) COVID-19 (NICK) Negative (Negative) COVID-19 Clin Com See Note Discharge Plan Discharge Clinical Impression: Anxiety Patient Disposition: Home, Self-Care Instructions: Anxiety (ED) Additional Instructions: Please follow-up with your primary care physician tomorrow. If you have any worsening or new symptoms, please return to the emergency room or call 911 Prescriptions: No Action ferrous sulfate 325 mg (65 mg iron) Tablet 325 mg PO DAILY benztropine [Cogentin] 1 mg Tablet 1 mg PO BID fluoxetine 40 mg capsule 2 cap PO DAILY albuterol sulfate [Ventolin HFA] 90 mcg/actuation HFA aerosol inhaler 2 puff inhalation Q4-6H PRN (Reason: Shortness Of Breath Or Wheezing) fluphenazine HCl 5 mg tablet 1 tab PO BID chlorpromazine 50 mg tablet 1 tab PO TID PRN (Reason: Agitation) prazosin 1 mg Capsule 4 mg PO BEDTIME 30 Days Qty: 120 0RF Protocol: Hold for SBP< HOLD for SBP < : 90 trazodone 150 mg tablet 1 tab PO BEDTIME meclizine 25 mg tablet 25 mg PO DAILY PRN (Reason: dizziness) Qty: 6 0RF metformin 500 mg tablet 500 mg PO BIDWM atorvastatin 10 mg tablet 10 mg PO BEDTIME pantoprazole 40 mg tablet,delayed release (DR/EC) 40 mg PO DAILY@0630 montelukast 10 mg tablet 10 mg PO BEDTIME lisinopril 5 mg tablet 5 mg PO DAILY mirtazapine 15 mg tablet 7.5 mg PO BEDTIME sennosides [senna] 8.6 mg tablet 17.2 mg PO BEDTIME PRN (Reason: constipation) lactulose 10 gram/15 mL solution 30 ml PO BID PRN (Reason: Constipation) nystatin 100,000 unit/gram powder 1 appl topical BID cephalexin 500 mg capsule 500 mg PO QID Interventions: [place]-Suicide Risk Severity Scale Last Done: 03/18/23 17:40
== END 2023-03-18 22:52 | disposition home or self-care (01) ==
PROVIDERS: Emergency Provider Emergency Medicine
DX: F33.1 Major depressive disorder, recurrent, moderate (principal); R45.851 Suicidal ideations; F41.1 Generalized anxiety disorder; F43.0 Acute stress reaction; Z20.822 Contact with and (suspected) exposure to COVID-19; Z20.828 Contact with and (suspected) exposure to other viral communicable diseases; Z79.899 Other long term (current) drug therapy; F17.210 Nicotine dependence, cigarettes, uncomplicated; Z71.6 Tobacco abuse counseling
CPT/HCPCS: 80307; 81025; 87635; 99284

== ENCOUNTER 2023-03-19 00:15 | Emergency (ER) | payer MEDICARE, MEDICAID, SELFPAY | END 2023-03-19 01:02 | disposition left against medical advice (07) | LOC: HO.ED 01:01 | PROVIDERS: Emergency Provider Emergency Medicine | DX: Z91.81 History of falling (principal); F31.9 Bipolar disorder, unspecified; Z91.51 Personal history of suicidal behavior; Z91.52 Personal history of nonsuicidal self-harm ==

== ENCOUNTER 2023-03-19 13:47 | Inpatient (IN) | payer MEDICARE, MEDICAID, SELFPAY ==
[2023-03-19 13:56] VITALS: BP 127/84; BP 176/92; PULSE 100; PULSE 105; RESP 18; TEMP 36.2; O2SAT 95; O2SAT 98; BMI 33.3
--- NOTE | 2023-03-19 14:02 | ECG_ITS ---
Test Reason : over dose Blood Pressure : / mmHG Vent. Rate : 077 BPM Atrial Rate : 077 BPM P-R Int : 144 ms QRS Dur : 082 ms QT Int : 412 ms P-R-T Axes : 020 046 050 degrees QTc Int : 466 ms Normal sinus rhythm Normal ECG When compared with ECG of 16-MAR-2023 19:46, No significant change was found Referred By: Beny Patton Electronically Signed By:Fabricio Kay
[2023-03-19 14:31] LABS: MANUAL DIFF FLAG NO
[2023-03-19 14:33] LABS: Basophils Percent Auto 0.6 % (0-2); Eosinophils Absolute Auto 0.3 X10*3/uL (0.0-0.4); Eosinophils Percent Auto 3.6 % (0-4); Hematocrit 36.1 % (37.0-47.0); Hemoglobin 11.5 g/dl (12.0-16.0); Imm Gran Abs Auto 0.02 X10*3/uL (0.00-0.03); Imm Gran Pct Auto 0.3 % (0.0-0.4); Lymphocytes Percent Auto 28.4 % (20-40); Mean Corpuscular HGB Conc 31.9 g/dl (31.0-35.0); Mean Corpuscular Hemoglobin 28.2 pg (27.0-33.0); Mean Corpuscular Volume 88.5 fL (80.0-98.0); Mean Platelet Volume 9.8 fL (9.4-12.3); Monocytes Absolute Auto 0.6 X10*3/uL (0.1-1.2); Monocytes Percent Auto 8.5 % (2-11); Neutrophils Absolute Auto 4.2 x10*3/uL (2.0-8.3); Neutrophils Percent Auto 58.6 % (45-73); Platelet Count 305 X10*3/uL (160-400); Red Blood Count 4.08 X10*6/uL (4.20-5.50); Red Cell Distribution Width 13.7 % (11.0-16.0); White Blood Count 7.2 X10*3/uL (4.8-10.8)
[2023-03-19 15:03] LABS: Acetaminophen LAB 170 mcg/mL (<30); Alanine Aminotransferase 18 U/L (0-31); Albumin Level 4.3 g/dL (3.5-5.0); Alkaline Phosphatase 117 U/L (39-117); Anion Gap 16 (12-20); Aspartate Amino Transferase 18 U/L (5-31); Bilirubin Total 0.2 mg/dL (0.0-1.0); Blood Urea Nitrogen 7 mg/dL (9-16); Calcium 9.3 mg/dL (8.4-10.2); Carbon Dioxide 23 mmol/L (22-29); Chloride 107 mmol/L (96-108); Creatinine Clr Calc Pharmacy 108.3; Estimated Glomerular Filt Rate > 60; Ethanol < 10 mg/dL; Glucose Random 131 mg/dL (60-115); Salicylate < 5.0 mg/dL (15-30); Sodium 142 mmol/L (135-145)
--- NOTE | 2023-03-19 15:27 | ED.OVERDOSE ---
HPI - Overdose General Chief Complaint: Overdose Stated Complaint: OVERDOSE SI Time Seen by Provider: 03/19/23 13:56 Source: patient Limitations: no limitations History of Present Illness HPI Narrative: 47-year-old female with past medical history of with suicide attempts, PTSD, borderline personality disorder, major depression disorder, hyperlipidemia, reflux, diabetes presents with EMS after an intentional Tylenol overdose. Patient reports to having taken 24 tablets 1 hour prior to arrival of 500 mg tablets. Patient took Tylenol in order to commit suicide. She reports hearing voices. She says her father is speaking her and saying he is going to kill her. Patient denies any go ingestions. She denies any alcohol or drugs. Patient is well-[facility] to [facility]. She has been admitted multiple times 20 years of September 2021 in October 2021. She has a long history of struggling with depression coming auditory hallucinations, suicidal ideation and attempts. Related Data Home Medications Medication Instructions Recorded Confirmed trazodone 150 mg tablet 1 tab PO BEDTIME 09/23/22 03/16/23 benztropine 1 mg tablet 1 mg PO BID 12/19/22 03/16/23 ferrous sulfate 325 mg (65 mg 325 mg PO DAILY 12/19/22 03/16/23 iron) tablet albuterol sulfate 90 mcg/actuation 2 puff inhalation Q4-6H PRN 12/24/22 03/16/23 aerosol inhaler (Ventolin HFA) Shortness Of Breath Or Wheezing chlorpromazine 50 mg tablet 1 tab PO TID PRN Agitation 12/24/22 03/16/23 fluoxetine 40 mg capsule 2 cap PO DAILY 12/24/22 03/16/23 fluphenazine HCl 5 mg tablet 1 tab PO BID 12/24/22 03/16/23 atorvastatin 10 mg tablet 10 mg PO BEDTIME 03/05/23 03/16/23 lactulose 10 gram/15 mL oral 30 ml PO BID PRN Constipation 03/05/23 03/16/23 solution lisinopril 5 mg tablet 5 mg PO DAILY 03/05/23 03/16/23 metformin 500 mg tablet 500 mg PO BIDWM 03/05/23 03/16/23 mirtazapine 15 mg tablet 7.5 mg PO BEDTIME 03/05/23 03/16/23 montelukast 10 mg tablet 10 mg PO BEDTIME 03/05/23 03/16/23 nystatin 100,000 unit/gram topical 1 appl topical BID 03/05/23 03/16/23 powder pantoprazole 40 mg tablet,delayed 40 mg PO DAILY@0630 03/05/23 03/16/23 release sennosides 8.6 mg tablet (senna) 17.2 mg PO BEDTIME PRN constipation 03/05/23 03/16/23 cephalexin 500 mg capsule 500 mg PO QID 03/13/23 03/16/23 Previous Rx's Medication Instructions Recorded prazosin 1 mg capsule 4 mg PO BEDTIME 30 days #120 caps 10/18/21 meclizine 25 mg tablet 25 mg PO DAILY PRN dizziness #6 01/24/23 tabs Allergies Allergy/AdvReac Type Severity Reaction Status Date / Time Fish Containing Products Allergy Severe ANAPHYLAXIS Verified 03/03/23 16:23 codeine [Codeine] Allergy Intermediate RASH Verified 03/03/23 16:23 Penicillins Allergy Intermediate RASH Verified 03/03/23 16:23 prednisone [Prednisone] Allergy Intermediate RASH Verified 03/03/23 16:23 Sulfa (Sulfonamide Allergy Intermediate RASH Verified 03/03/23 16:23 Antibiotics) [Sulfa (Sulfonamides)] azithromycin [AZITHROMYCIN] AdvReac Severe RASH Verified 03/03/23 16:23 ziprasidone [From Geodon] AdvReac Intermediate dysuria, Verified 03/03/23 16:23 rash Review of Systems Review of Systems: GEN: Well developed, no acute distress, alert, oriented HEENT: Normocephalic, atraumatic, normal external ears, nose appears normal, no oropharyngeal edema or exudates Eyes: Normal to appearance Neck: Supple, no lymphadenopathy Respiratory: Talks in complete sentences, no respiratory distress, clear to auscultation bilaterally Cardiovascular: Regular rate and rhythm, no murmurs rubs or gallops Abdomen: Soft, nontender, nondistended, no guarding, no rebound Back: No CVA tenderness Extremities: No clubbing cyanosis or edema Neurologic: No focal neurologic deficits, cranial nerves 2-12 intact, strength is 5/5 bilaterally Skin: No rash PMFSH Past Medical History Medical History Acetaminophen overdose Borderline personality disorder Bronchitis Depression Diabetes type 2, controlled Full body hives GERD (gastroesophageal reflux disease) History of attempted suicide History of non-suicidal self-harm Hyperlipidemia Hypomagnesemia Major depression MDD (major depressive disorder), recurrent episode, severe Mood disorder Overdose PTSD (post-traumatic stress disorder) Suicide attempt Suicide attempt by acetaminophen overdose Social History Social History Household Members: Other Household Members Other:: senior living Housing: Other Housing Other:: senior living Do you presently have visiting nurse or other home services: No Unable to assess alcohol history related to: Unknown Alcohol intake: former Patient Tobacco Use Status: Current everyday Tobacco user Tobacco use type: Cigarette Cigarette Packs Per Day: 1 Cigarettes Per Day: 16 Years Smoked: 20 e-Cigarette/Vaping Use: Never Used Substance Use Type: Marijuana Advance Directives: No Advance Directives Information Provided: No service: No Current occupational status: unemployed and disabled Sexual orientation: Don't Know Physical Exam Vital Signs: Vital Signs: Last Vital Signs Temp 97.1 F 03/19/23 13:56 Pulse 105 H 03/19/23 13:56 Resp 18 03/19/23 13:56 BP 127/84 03/19/23 13:56 Pulse Ox 95 03/19/23 13:56 BMI result Body Mass Index 33.3 GEN: Well developed, no acute distress, alert, oriented HEENT: Normocephalic, atraumatic, normal external ears, nose appears normal, no oropharyngeal edema or exudates Eyes: Normal to appearance Neck: Supple, no lymphadenopathy Respiratory: Talks in complete sentences, no respiratory distress, clear to auscultation bilaterally Cardiovascular: Regular rate and rhythm, no murmurs rubs or gallops Abdomen: Soft, nontender, nondistended, no guarding, no rebound Back: No CVA tenderness Extremities: No clubbing cyanosis or edema Neurologic: No focal neurologic deficits, cranial nerves 2-12 intact, strength is 5/5 bilaterally Skin: No rash Course Course Course Narrative: Patient presented with possible suicide attempt by taking Tylenol. Her Tylenol level came back 1 hour after reported ingestion as significantly elevated. Patient will be started on N-acetylcysteine. I will admit the patient hospital. She will arm wound knee constant attention given her suicide attempt. I have reviewed her records and she has an extensive psychiatric history with frequent evaluation the emergency department. Patient's alcohol level and aspirin level were negative. Medical Decision Making Medical Decision Making [facility] Narrative: 47-year-old female presents with possible suicide attempt by taking Tylenol. Patient require Tylenol level. Patient reportedly took this 1 hour prior to arrival. She will need a 4 hour Tylenol level as well. If her level significantly elevated even 1 hour after ingestion, patient will require an acetylcysteine. She is currently the Behavioral Health Unit. She will need constant observation. Check for other co ingestions. Will perform an EKG to rule out prolonged QTC. Will treat patient supportively Differential Diagnosis Differential Diagnoses: The differential diagnosis associated with the presentation includes (Depression, anxiety, PTSD, psychosis, suicide attempt, personality disorder, mood disorder) Tylenol toxicity Admission/Observation Consideration of admission/observation: Escalation of care including admission/observation considered Consult Healthcare Provider Management of the patient was discussed with: Hospitalist Lab Data [facility] Lab Attestation statement: I reviewed the patient's lab results. 03/19/23 14:19 03/19/23 14:19 Labs: Lab Results 03/19/23 03/19/23 Range/Units 14:19 14:19 WBC 7.2 (4.8-10.8) X10*3/uL RBC 4.08 L (4.20-5.50) X10*6/uL Hgb 11.5 L (12.0-16.0) g/dl Hct 36.1 L (37.0-47.0) % MCV 88.5 (80.0-98.0) fL MCH 28.2 (27.0-33.0) pg MCHC 31.9 (31.0-35.0) g/dl RDW 13.7 (11.0-16.0) % Plt Count 305 (160-400) X10*3/uL MPV 9.8 (9.4-12.3) fL Immature Gran % (Auto) 0.3 (0.0-0.4) % Neut % (Auto) 58.6 (45-73) % Lymph % (Auto) 28.4 (20-40) % [place] % (Auto) 8.5 (2-11) % Eos % (Auto) 3.6 (0-4) % Baso % (Auto) 0.6 (0-2) % Lymph # (Auto) 2.0 (1.2-4.9) X10*3/uL [place] # (Auto) 0.6 (0.1-1.2) X10*3/uL Eos # (Auto) 0.3 (0.0-0.4) X10*3/uL Baso # (Auto) 0.0 (0.0-0.2) X10*3/uL Abs Immat Gran (auto) 0.02 (0.00-0.03) X10*3/uL Absolute Neuts (auto) 4.2 (2.0-8.3) x10*3/uL Absolute Nucleated RBC 0.000 (0.0-0.012) X10*3/uL Nucleated RBC % (auto) 0.0 (0.0-0.2) /100WBC Sodium 142 (135-145) mmol/L Potassium 4.0 (3.3-5.1) mmol/L Chloride 107 (96-108) mmol/L Carbon Dioxide 23 (22-29) mmol/L Anion Gap 16 (12-20) BUN 7 L (9-16) mg/dL Creatinine 0.73 (0.5-1.4) mg/dL Estim Creat Clear Calc 108.3 Estimated GFR > 60 Random Glucose 131 H (60-115) mg/dL Calcium 9.3 (8.4-10.2) mg/dL Total Bilirubin 0.2 (0.0-1.0) mg/dL AST 18 (5-31) U/L ALT 18 (0-31) U/L Alkaline Phosphatase 117 (39-117) U/L Total Protein 7.0 (6.5-8.0) g/dL Albumin 4.3 (3.5-5.0) g/dL Salicylates < 5.0 L (15-30) mg/dL Acetaminophen 170 H* (<30) mcg/mL Ethyl Alcohol < 10 mg/dL Independent Interpretation I performed an independent interpretation of an: EKG (Normal sinus rhythm heart rate 77, normal intervals, no acute ST elevations depressions) External Record Review External record reviewed: Inpatient record Prescription Management I considered prescription management with: Other (N acetylcysteine) Chronic Conditions Patient?s care impacted by: Diabetes Critical Care Time Critical Care Time Critical Care Time: Yes Total Critical Care Time: 40 Attestation: Approximate 45 minutes of critical care time spent on patient on bedside assessment, re-evaluation, interpretation of medical data, medical management for overdose of Tylenol to help prevent long-term consequences. Discharge Plan Discharge Clinical Impression: Acetaminophen overdose, Suicide attempt Patient Disposition: Admitted As Inpatient
--- NOTE | 2023-03-19 16:19 | P.HPHOSP_ITS ---
History of Present Illness Date of Service: 03/19/23 Attending physician on admission: Roge Spann Chief Complaint: tylenol od 47-year-old female with history of PTSD, borderline personality disorder, depressive disorder with history of multiple suicide attempts, hyperlipidemia, GERD, [id number] type 2 diabetes presented to the ED via EMS following an intentional Tylenol overdose at about 13:00. The patient reports she ran away from the senior care which she resides in and purchased 24 capsules of 500 mg acetaminophen and ingested the entire bottle with intent to kill herself (though per ED, not reliable as far as time of administration). She states that she has been feeling increasingly suicidal over the last few days with worsening depression. She is also endorsing auditory hallucinations but denies any visual hallucinations. She denies any other toxic ingestion including other medications, illicit drugs, or alcohol. She has had multiple Tylenol overdoses in the past and has been admitted to Psychiatry multiple times in the last 2 years. She is currently experiencing mild diffuse abdominal discomfort and nausea but denies any vomiting, diarrhea, muscle cramping, shortness of breath, chest pain, lightheadedness. On arrival, vital signs stable though has had intermittent tachycardia up to 105. Hematology studies unremarkable, has chronic normocytic anemia consistent with baseline. Renal function normal, electrolyte levels normal. Glucose 131. Total bilirubin 0.2, AST 18, ALT 18, alkaline phosphatase 117. Salicylates level undetectable. Acetaminophen level 170. Ethyl alcohol level below detectable limits. Urinalysis and urine tox screen pending. EKG shows NSR, rate [address]/T-wave abnormalities. QTC normal. Poison control contacted by ED provider recommending treatment with acetylcysteine and supportive care. Given questionable time of toxic ingestion, no indication for activated charcoal. Review of Systems Review of Systems: General: No fevers, malaise, unintentional weight loss HEENT: No blurred vision, diplopia. No sore throat, nasal congestion, rhinorrhea, sinus pain, ear pain Cardiovascular: No chest pain, palpitations, or leg edema Respiratory: No shortness of breath, wheezing, cough GI: +abd discomfort, +nausea. No vomiting, diarrhea, constipation, melena, hematochezia : No dysuria, hematuria, increased urinary frequency, decreased urinary output MSK: No myalgia, back pain Neuro: No headaches, weakness, paresthesias Skin: No rashes or lesions [facility] Medical History Acetaminophen overdose Borderline personality disorder Bronchitis Depression Diabetes type 2, controlled Full body hives GERD (gastroesophageal reflux disease) History of attempted suicide History of non-suicidal self-harm Hyperlipidemia Hypomagnesemia Major depression MDD (major depressive disorder), recurrent episode, severe Mood disorder Overdose PTSD (post-traumatic stress disorder) Suicide attempt Suicide attempt by acetaminophen overdose Social History Household Members: Other Household Members Other:: senior care Housing: Other Housing Other:: senior care Do you presently have visiting nurse or other home services: No Unable to assess alcohol history related to: Unknown Alcohol intake: former Patient Tobacco Use Status: Current everyday Tobacco user Tobacco use type: Cigarette Cigarette Packs Per Day: 1 Cigarettes Per Day: 16 Years Smoked: 20 Smoked in Last 30 Days: Yes e-Cigarette/Vaping Use: Never Used Substance Use Type: Marijuana Advance Directives: No Advance Directives Information Provided: No service: No Current occupational status: unemployed and disabled Sexual orientation: Don't Know Meds Allergies Allergy/AdvReac Type Severity Reaction Status Date / Time Fish Containing Products Allergy Severe ANAPHYLAXIS Verified 03/03/23 16:23 codeine [Codeine] Allergy Intermediate RASH Verified 03/03/23 16:23 Penicillins Allergy Intermediate RASH Verified 03/03/23 16:23 prednisone [Prednisone] Allergy Intermediate RASH Verified 03/03/23 16:23 Sulfa (Sulfonamide Allergy Intermediate RASH Verified 03/03/23 16:23 Antibiotics) [Sulfa (Sulfonamides)] azithromycin [AZITHROMYCIN] AdvReac Severe RASH Verified 03/03/23 16:23 ziprasidone [From Geodon] AdvReac Intermediate dysuria, Verified 03/03/23 16:23 rash Active Medications: Current Medications Acetaminophen (Acetaminophen 325 Mg Tablet) 650 mg PO Q6H PRN PRN Reason: Pain, Mild (Pain Scale 1-3) Docusate Sodium (Docusate Sodium 100 Mg Capsule) 100 mg PO DAILY PRN PRN Reason: Constipation Enoxaparin Sodium (Enoxaparin Sodium 40 Mg/0.4 Ml Syringe) 40 mg SUBCUT Q24H YULY Acetylcysteine 13,607.7 mg/ (Dextrose) 268.0385 mls @ 268.039 mls/hr IV ONCE ONE Stop: 03/19/23 16:59 Acetylcysteine 4,535.9 mg/ (Dextrose) 522.6795 mls @ 130.67 mls/hr IV ONCE ONE Stop: 03/19/23 20:59 Ondansetron HCl (Ondansetron Hcl 4 Mg/2 Ml Vial) 4 mg IVPUSH Q8H PRN PRN Reason: Nausea and Vomiting Pharmacy Consult (Consult Rx Perform Med Rec) 1 each MISCELLANE ONCE PRN PRN Reason: Consult order Sodium Chloride (0.9 % Sodium Chloride Flush 3 Ml Syringe) 3 ml IVFLUSH [facility] Home Medications Medication Instructions Recorded Confirmed Last Taken Type trazodone 150 mg tablet 1 tab PO BEDTIME 09/23/22 03/19/23 03/02/23 22:00 History benztropine 1 mg tablet 1 mg PO BID 12/19/22 03/19/23 03/03/23 09:00 History ferrous sulfate 325 mg (65 mg 325 mg PO DAILY 12/19/22 03/19/23 03/03/23 09:00 History iron) tablet albuterol sulfate 90 mcg/actuation 2 puff inhalation Q4-6H PRN 12/24/22 03/19/23 3 Days Ago History aerosol inhaler (Ventolin HFA) Shortness Of Breath Or Wheezing ~12/21/22 chlorpromazine 50 mg tablet 1 tab PO TID PRN Agitation 12/24/22 03/19/23 3 Days Ago History ~12/21/22 fluoxetine 40 mg capsule 2 cap PO DAILY 12/24/22 03/19/23 03/03/23 09:00 History fluphenazine HCl 5 mg tablet 1 tab PO BID 12/24/22 03/19/23 03/03/23 09:00 History atorvastatin 10 mg tablet 10 mg PO BEDTIME 03/05/23 03/19/23 Unknown History lactulose 10 gram/15 mL oral 30 ml PO BID PRN Constipation 03/05/23 03/19/23 Un known History solution lisinopril 5 mg tablet 5 mg PO DAILY 03/05/23 03/19/23 Unknown History metformin 500 mg tablet 500 mg PO BIDWM 03/05/23 03/19/23 Unknown History mirtazapine 15 mg tablet 7.5 mg PO BEDTIME 03/05/23 03/19/23 Unknown History montelukast 10 mg tablet 10 mg PO BEDTIME 03/05/23 03/19/23 Unknown History nystatin 100,000 unit/gram topical 1 appl topical BID 03/05/23 03/19/23 Unknown History powder pantoprazole 40 mg tablet,delayed 40 mg PO DAILY@0630 03/05/23 03/19/23 Unknown History release sennosides 8.6 mg tablet (senna) 17.2 mg PO BEDTIME PRN constipation 03/05/23 03/19/23 Unknown History cephalexin 500 mg capsule 500 mg PO QID 03/13/23 03/19/23 Unknown History Physical Exam Vital Signs and Narrative: Vital Signs: Last Vital Signs Temp 97.1 F 03/19/23 13:56 Pulse 105 H 03/19/23 13:56 Resp 18 03/19/23 13:56 BP 127/84 03/19/23 13:56 Pulse Ox 95 03/19/23 13:56 BMI result Body Mass Index 33.3 Constitutional - Awake and Alert, No apparent distress Eyes - PERRLA, EOMI Cardiovascular - S1S2, RRR, No edema Respiratory - Normal lung expansion, Normal respiratory effort, No respiratory distress, CTA bilaterally Gastrointestinal - NT / ND; +BS; No rebound or guarding Extremities - no calf tenderness bilaterally, no swelling Musculoskeletal - Normal inspection, normal ROM Skin - Warm/Dry Neurological - Alert & oriented x3, CN II-XII in tact, 5/5 strength BUE and BLE Psychological - Appropriate affect Results Labs 03/19/23 14:19 03/19/23 14:19 Labs: Laboratory Results - last 24 hr 03/19/23 03/19/23 14:19 14:19 MCV 88.5 MCH 28.2 MCHC 31.9 RDW 13.7 Plt Count 305 MPV 9.8 Immature Gran % (Auto) 0.3 Neut % (Auto) 58.6 Lymph % (Auto) 28.4 [place] % (Auto) 8.5 Eos % (Auto) 3.6 Baso % (Auto) 0.6 Lymph # (Auto) 2.0 [place] # (Auto) 0.6 Eos # (Auto) 0.3 Baso # (Auto) 0.0 Abs Immat Gran (auto) 0.02 Absolute Neuts (auto) 4.2 Absolute Nucleated RBC 0.000 Nucleated RBC % (auto) 0.0 Anion Gap 16 Estim Creat Clear Calc 108.3 Estimated GFR > 60 Random Glucose 131 H Calcium 9.3 Total Bilirubin 0.2 AST 18 ALT 18 Alkaline Phosphatase 117 Total Protein 7.0 Albumin 4.3 Salicylates < 5.0 L Acetaminophen 170 H* Ethyl Alcohol < 10 Assessment and Plan (1) Acetaminophen overdose: Status: Acute (2) Suicide attempt: Status: Acute Plan 47-year-old female with history of PTSD, borderline personality disorder, depressive disorder with history of multiple suicide attempts, hyperlipidemia, GERD, uql-pgpsciw-zotfzwuzp type 2 diabetes admitted for toxic ingestion of acetaminophen with attempt to commit suicide. # intentional acetaminophen overdose -patient with worsening depression and SI over the last several days -acetaminophen level 170. Salicylates undetectable. U tox pending. Denies any other substance ingestion -poison control contacted. Continue acetylcysteine as ordered, initiated in ED. No indication for activated charcoal. Recheck acetaminophen level in 2 hours -LFT's normal. -sitter consult placed -will need care team consult once medically cleared for placement to psychiatry # depression, PTSD, borderline personality disorder -as above. Continue home meds -care team consult once medically cleared # ord-boaypmi-grdzdelca type 2 diabetes-without hyperglycemia -POC glucose -diabetic diet -Humalog on sliding-scale -hold metformin # GERD -continue PPI # hyperlipidemia -continue statin #Chronic normocytic anemia -H/H baseline, above transfusion threshold -continue ferrous sulfate DVT prophylaxis-Lovenox Full code Patient requires inpatient stay of at least 2 midnights for management of intentional acetaminophen overdose requiring treatment with N-acetylcysteine with close monitoring by poison Control and placement to Psychiatry once medically cleared Time Spent With Patient Time: Total time managing care of this patient today ____ minutes. Quality Stroke Does the patient have a stroke diagnosis?: No VTE Prior VTE?: No VTE Risk Level:: Medical - moderate - high VTE Device Contraindication: Treatment Not Indicated VTE Drug Contraindication: N/A - Med Ordered
[2023-03-19] MEDS: ondansetron HCL 4 MG/2 ML VIAL IVPUSH (16:44)
[2023-03-19] MEDS: Enoxaparin Sodium 40 MG/0.4 ML SYRINGE SUBCUT (17:00)
[2023-03-19 18:27] VITALS: BP 153/81; PULSE 84; RESP 20; TEMP 36.8; O2SAT 98
[2023-03-19 18:50] VITALS: BP 137/71; PULSE 87; RESP 20; TEMP 36.8; O2SAT 98
--- NOTE | 2023-03-19 19:17 | PHA.MEDREC ---
Pharmacy Consult ? Medication Reconciliation Pharmacy has completed the medication reconciliation.
[2023-03-19 20:00] VITALS: BP 132/80; PULSE 75; RESP 14; TEMP 36.2; O2SAT 98
[2023-03-19 20:18] LABS: Acetaminophen LAB 115 mcg/mL (<30)
--- NOTE | 2023-03-19 20:24 | PC.NURSE ---
Informed the hospitalist that pts acetaminophen is 115
[2023-03-19 21:47] LABS: Glucose, Whole Blood 126 mg/dL (60-115)
[2023-03-19 22:00] VITALS: BMI 36.9
[2023-03-20] VITALS (7 sets, daily range): BP systolic 115–150; BP diastolic 58–92; PULSE 74–122; RESP 15–20; TEMP 36.1–37; O2SAT 91–97; BMI 36.9
[2023-03-20] MEDS: ACETYLCYSTEINE IV (00:24)
[2023-03-20] MEDS: DEXTROSE 5% IV (00:24)
[2023-03-20 00:53] LABS: IDNOW Serial# 08D9AD1C
[2023-03-20 00:54] LABS: COVID-19 Test Negative (Negative)
[2023-03-20 07:32] LABS: Glucose, Whole Blood 119 mg/dL (60-115)
[2023-03-20 07:36] LABS: Appearance Urine Clear; Color Urine Straw; Glucose Urine UA Negative (Negative); Leukocyte Esterase Urine Negative (Negative); Nitrite Urine Negative (Negative); PH 5.5 (5.0-9.0); Urine Blood Negative (Negative); Urine Ketones 40 mg/dL (Negative); Urine Protein Negative (Neg-Trace)
[2023-03-20 07:38] LABS: UPreg QC Valid YES; Urine Pregnancy NEGATIVE (NEGATIVE)
[2023-03-20 07:44] LABS: Amphetamine Screen Urine Not Detected (Not Detect); Barbiturates, Urine Not Detected (Not Detect); Benzodiazepines Screen Urine Not Detected (Not Detect); Cannabinoid Screen Urine Not Detected (Not Detect); Cocaine Screen Urine Not Detected (Not Detect); Fentanyl, urine Not Detected (Not Detect); Opiate Screen Urine Not Detected (Not Detect); Phencyclidine Screen Urine Not Detected (Not Detect)
--- NOTE | 2023-03-20 08:28 | PC.NURSE ---
pt tolerated acetadote well, She is awake, alert and ambulating the halls with the constant machine stripper cutter. Pt states she is has been having increasing thoughts of suicide for a few days. She states she has auditory hallucination of her father telling her to kill herself. Pt states she will be able to tell us if the thoughts are more persistant or compelling. Room modified for safety. Constant machine stripper cutter maintained.
[2023-03-20 09:21] LABS: MANUAL DIFF FLAG NO
[2023-03-20 09:29] LABS: Basophils Percent Auto 0.8 % (0-2); Eosinophils Absolute Auto 0.3 X10*3/uL (0.0-0.4); Eosinophils Percent Auto 4.9 % (0-4); Hematocrit 35.4 % (37.0-47.0); Hemoglobin 11.2 g/dl (12.0-16.0); Imm Gran Abs Auto 0.02 X10*3/uL (0.00-0.03); Imm Gran Pct Auto 0.4 % (0.0-0.4); Lymphocytes Absolute Auto 1.3 X10*3/uL (1.2-4.9); Lymphocytes Percent Auto 25.9 % (20-40); Mean Corpuscular HGB Conc 31.6 g/dl (31.0-35.0); Mean Corpuscular Hemoglobin 27.7 pg (27.0-33.0); Mean Corpuscular Volume 87.4 fL (80.0-98.0); Mean Platelet Volume 9.8 fL (9.4-12.3); Monocytes Absolute Auto 0.5 X10*3/uL (0.1-1.2); Platelet Count 257 X10*3/uL (160-400); Red Blood Count 4.05 X10*6/uL (4.20-5.50); Red Cell Distribution Width 13.8 % (11.0-16.0); White Blood Count 5.1 X10*3/uL (4.8-10.8)
[2023-03-20 09:51] LABS: Acetaminophen LAB < 17 mcg/mL (<30); Alanine Aminotransferase 15 U/L (0-31); Albumin Level 3.7 g/dL (3.5-5.0); Alkaline Phosphatase 89 U/L (39-117); Anion Gap 12 (12-20); Aspartate Amino Transferase 14 U/L (5-31); Bilirubin Total 0.2 mg/dL (0.0-1.0); Blood Urea Nitrogen 6 mg/dL (9-16); Calcium 8.9 mg/dL (8.4-10.2); Carbon Dioxide 26 mmol/L (22-29); Chloride 108 mmol/L (96-108); Creatinine Clr Calc Pharmacy 126.4; Estimated Glomerular Filt Rate > 60; Glucose Random 128 mg/dL (60-115); Potassium 3.5 mmol/L (3.3-5.1); Sodium 142 mmol/L (135-145); Total Protein 6.1 g/dL (6.5-8.0)
--- NOTE | 2023-03-20 10:30 | MHC.CM.PN ---
IMM 03/20/23 DELIVERED TO BEDSIDE, PT DECLINED TO SIGN AND REQUESTED CM LEAVE AT BEDSIDE, EMR REVIEWED PT ADMITTED S/P TYLENOL OD, CM MET W/PT WHO REPORTS SHE STILL RESIDES AT [facility], PT IS INDEP W/ALL CARE AND DENIES USE OF DME, PT HAS OUTPT MENTAL HEALTH SERVICES W/[facility] INCLUDING A THERAPIST/PSYCHIATRIST. PT REPORTS SHE WOULD LIKE INPT PSYCH ONCE MEDICALLY CLEARED, PER HOSPITALIST PT WILL LIKELY NEED INPT PSYCH D/T OD. CONTACTED AT 10:25AM [phone] UPDATED ON PLAN FOR PT TO BE EVAL'D FOR INPT PSYCH ONCE MEDICALLY CLEARED. PT VERIFIES PFIZER X2, JASON ARREOLA IS PCP AND CONFIRMS PT DOES NOT HAVE A GUARDIAN OR HCP, PT DECLINES TO COMPLETE A HCP AT THIS TIME.
[2023-03-20 11:36] LABS: Glucose, Whole Blood 149 mg/dL (60-115)
[2023-03-20] MEDS: Benztropine Mesylate 1 MG TABLET PO ×2 (11:51→20:58)
[2023-03-20] MEDS: FLUoxetine HCl 20 MG CAPSULE 80 MG PO (11:52)
[2023-03-20] MEDS: lisinopriL 5 MG TABLET PO (11:52)
[2023-03-20] MEDS: chlorproMAZINE HCl 25 MG TABLET 50 MG PO (12:41)
[2023-03-20] MEDS: fluPHENAZine HCl 5 MG TABLET PO ×2 (13:42→20:58)
--- NOTE | 2023-03-20 14:40 | P.PNIM_ITS ---
Subjective Subjective Date of Service: 03/20/23 Interval History: Seen and evaluated walking in [place] with staff reports feeling better, asking for her home meds Finishing Acetylcysteine protocol SI sitter in room Review of Systems Review of Systems: Yes all other systems are reviewed and are negative Physical Exam Vital Signs: Vital Signs: Last Vital Signs Temp 97.1 F 03/20/23 11:21 Pulse 92 03/20/23 11:21 Resp 18 03/20/23 11:21 BP 138/76 03/20/23 11:21 Pulse Ox 96 03/20/23 11:21 O2 Del Method Room Air 03/20/23 11:21 BMI result Body Mass Index 36.9 Const: Other: Constitutional : Awake, interactive, obese, not in distress Neck : Normal inspection, Supple Cardiovascular : RRR, no JVP, no lower extremity edema Respiratory : good bilateral air entry, no crackles, wheezes or rhonchi Gastrointestinal: soft, lax, Normal bowel sounds, Non tender Skin : Warm, Dry Neurological : Alert & oriented x3, No focal deficit Objective Data Active Medications Acetaminophen (Acetaminophen 325 Mg Tablet) 650 mg PO Q6H PRN PRN Reason: Pain, Mild (Pain Scale 1-3) Albuterol Sulfate (Albuterol Sulfate 90 Mcg 8 Gm Inhaler) 2 puff INHALE Q4H PRN PRN Reason: Shortness Of Breath Or Wheezing Atorvastatin Calcium (Atorvastatin Calcium 10 Mg Tablet) 10 mg PO BEDTIME [facility] Benztropine Mesylate (Benztropine Mesylate 1 Mg Tablet) 1 mg PO BID [facility] Last Admin: 03/20/23 11:51 Dose: 1 mg Documented By: MAYA Chlorpromazine HCl (Chlorpromazine Hcl 25 Mg Tablet) 50 mg PO TID PRN PRN Reason: Agitation Last Admin: 03/20/23 12:41 Dose: 50 mg Documented By: MAYA Docusate Sodium (Docusate Sodium 100 Mg Capsule) 100 mg PO DAILY PRN PRN Reason: Constipation Enoxaparin Sodium (Enoxaparin Sodium 40 Mg/0.4 Ml Syringe) 40 mg SUBCUT Q24H [facility] Last Admin: 03/19/23 17:00 Dose: 40 mg Documented By: SUDEEP Fluoxetine HCl (Fluoxetine Hcl 20 Mg Capsule) 80 mg PO DAILY [facility] Last Admin: 03/20/23 11:52 Dose: 80 mg Documented By: MAYA Fluphenazine HCl (Fluphenazine Hcl 5 Mg Tablet) 5 mg PO BID [facility] Last Admin: 03/20/23 13:42 Dose: 5 mg Documented By: MAYA Glucose (Glucose Gel 15 Gm Gel..Gram.) 15 gm PO Q15M PRN; Protocol PRN Reason: per Hypoglycemia Standing Ord. Dextrose (D10) 250 mls @ 750 mls/hr IV Q15M PRN; Protocol PRN Reason: per Hypoglycemia Standing Ord. Insulin Human Lispro (Insulin Lispro 100 Unit/Ml 3 Ml Vial) 0 unit SUBCUT [facility]; Protocol Last Admin: 03/20/23 11:52 Dose: Not Given Documented By: MAYA Non-Admin Reason: No Insulin Coverage Lactulose (Lactulose 20 Gm/30 Ml Solution) 20 gm PO BID PRN PRN Reason: Constipation Lisinopril (Lisinopril 5 Mg Tablet) 5 mg PO DAILY [facility]; Protocol Last Admin: 03/20/23 11:52 Dose: 5 mg Documented By: MAYA Meclizine HCl (Meclizine Hcl 25 Mg Tablet) 25 mg PO DAILY PRN PRN Reason: dizziness Metformin HCl (Metformin Hcl 500 Mg Tablet) 500 mg PO BIDWM [facility] Mirtazapine (Mirtazapine 7.5 Mg Tablet) 7.5 mg PO BEDTIME [facility] Montelukast Sodium (Montelukast Sodium 10 Mg Tablet) 10 mg PO BEDTIME YUL[facility] Omeprazole (Omeprazole 20 Mg Capsule.Dr) 20 mg PO DAILY@0630 [facility] Ondansetron HCl (Ondansetron Hcl 4 Mg/2 Ml Vial) 4 mg IVPUSH Q8H PRN PRN Reason: Nausea and Vomiting Last Admin: 03/19/23 16:44 Dose: 4 mg Documented By: TRICE Pharmacy Consult (Consult Rx Perform Med Rec) 1 each MISCELLANE ONCE PRN PRN Reason: Consult order Prazosin HCl (Prazosin Hcl 1 Mg Capsule) 4 mg PO BEDTIME [facility]; Protocol Senna (Sennosides 8.6 Mg Tablet) 17.2 mg PO BEDTIME PRN PRN Reason: constipation Sodium Chloride (0.9 % Sodium Chloride Flush 3 Ml Syringe) [facility] Last Admin: 03/20/23 09:02 Dose: Not Given Documented By: MAYA Non-Admin Reason: IV Running Trazodone HCl (Trazodone Hcl 50 Mg Tablet) 150 mg PO BEDTIME [facility] Labs 03/20/23 09:04 03/20/23 09:04 Labs: Laboratory Results - last 24 hr 03/19/23 03/19/23 03/19/23 14:19 17:55 21:44 MCV MCH MCHC RDW Plt Count MPV Immature Gran % (Auto) Neut % (Auto) Lymph % (Auto) [place] % (Auto) Eos % (Auto) Baso % (Auto) Lymph # (Auto) [place] # (Auto) Eos # (Auto) Baso # (Auto) Abs Immat Gran (auto) Absolute Neuts (auto) Absolute Nucleated RBC Nucleated RBC % (auto) Anion Gap 16 Estim Creat Clear Calc 108.3 Estimated GFR > 60 POC Glucose 126 H Random Glucose 131 H Calcium 9.3 Total Bilirubin 0.2 AST 18 ALT 18 Alkaline Phosphatase 117 Total Protein 7.0 Albumin 4.3 Urine Color Urine Appearance Urine pH Ur Specific [place] Urine Protein Urine Glucose (UA) Urine Ketones Urine Blood Urine Nitrite Ur Leukocyte Esterase Urine Test Salicylates < 5.0 L Urine Opiates Screen Urine Fentanyl Screen Acetaminophen 170 H* 115 H* Ur Barbiturates Screen Ur Phencyclidine Scrn Ur Amphetamines Screen U Benzodiazepines Scrn Urine Cocaine Screen U Marijuana (THC) Screen Ethyl Alcohol < 10 COVID-19 (NICK) COVID-19 Clin Com 03/19/23 03/20/23 03/20/23 23:58 06:30 06:30 MCV MCH MCHC RDW Plt Count MPV Immature Gran % (Auto) Neut % (Auto) Lymph % (Auto) [place] % (Auto) Eos % (Auto) Baso % (Auto) Lymph # (Auto) [place] # (Auto) Eos # (Auto) Baso # (Auto) Abs Immat Gran (auto) Absolute Neuts (auto) Absolute Nucleated RBC Nucleated RBC % (auto) Anion Gap Estim Creat Clear Calc Estimated GFR POC Glucose Random Glucose Calcium Total Bilirubin AST ALT Alkaline Phosphatase Total Protein Albumin Urine Color Straw Urine Appearance Clear Urine pH 5.5 Ur Specific [place] 1.020 Urine Protein Negative Urine Glucose (UA) Negative Urine Ketones 40 Urine Blood Negative Urine Nitrite Negative Ur Leukocyte Esterase Negative Urine Test Salicylates Urine Opiates Screen Not Detected Urine Fentanyl Screen Not Detected Acetaminophen Ur Barbiturates Screen Not Detected Ur Phencyclidine Scrn Not Detected Ur Amphetamines Screen Not Detected U Benzodiazepines Scrn Not Detected Urine Cocaine Screen Not Detected U Marijuana (THC) Screen Not Detected Ethyl Alcohol COVID-19 (NICK) Negative COVID-19 Clin Com See Note 03/20/23 03/20/23 03/20/23 06:30 07:25 09:04 MCV 87.4 MCH 27.7 MCHC 31.6 RDW 13.8 Plt Count 257 MPV 9.8 Immature Gran % (Auto) 0.4 Neut % (Auto) 59.0 Lymph % (Auto) 25.9 [place] % (Auto) 9.0 Eos % (Auto) 4.9 H Baso % (Auto) 0.8 Lymph # (Auto) 1.3 [place] # (Auto) 0.5 Eos # (Auto) 0.3 Baso # (Auto) 0.0 Abs Immat Gran (auto) 0.02 Absolute Neuts (auto) 3.0 Absolute Nucleated RBC 0.000 Nucleated RBC % (auto) 0.0 Anion Gap Estim Creat Clear Calc Estimated GFR POC Glucose 119 H Random Glucose Calcium Total Bilirubin AST ALT Alkaline Phosphatase Total Protein Albumin Urine Color Urine Appearance Urine pH Ur Specific [place] Urine Protein Urine Glucose (UA) Urine Ketones Urine Blood Urine Nitrite Ur Leukocyte Esterase Urine Test NEGATIVE Salicylates Urine Opiates Screen Urine Fentanyl Screen Acetaminophen Ur Barbiturates Screen Ur Phencyclidine Scrn Ur Amphetamines Screen U Benzodiazepines Scrn Urine Cocaine Screen U Marijuana (THC) Screen Ethyl Alcohol COVID-19 ([facility]ICK) COVID-19 Clin Com 03/20/23 03/20/23 03/20/23 09:04 09:04 11:23 MCV MCH MCHC RDW Plt Count MPV Immature Gran % (Auto) Neut % (Auto) Lymph % (Auto) [place] % (Auto) Eos % (Auto) Baso % (Auto) Lymph # (Auto) [place] # (Auto) Eos # (Auto) Baso # (Auto) Abs Immat Gran (auto) Absolute Neuts (auto) Absolute Nucleated RBC Nucleated RBC % (auto) Anion Gap 12 Estim Creat Clear Calc 126.4 Estimated GFR > 60 POC Glucose 149 H Random Glucose 128 H Calcium 8.9 Total Bilirubin 0.2 AST 14 ALT 15 Alkaline Phosphatase 89 Total Protein 6.1 L Albumin 3.7 Urine Color Urine Appearance Urine pH Ur Specific [place] Urine Protein Urine Glucose (UA) Urine Ketones Urine Blood Urine Nitrite Ur Leukocyte Esterase Urine Test Salicylates Urine Opiates Screen Urine Fentanyl Screen Acetaminophen < 17 Ur Barbiturates Screen Ur Phencyclidine Scrn Ur Amphetamines Screen U Benzodiazepines Scrn Urine Cocaine Screen U Marijuana (THC) Screen Ethyl Alcohol COVID-19 (NICK) COVID-19 Clin Com Assessment and Plan (1) Acetaminophen overdose: Status: Acute (2) Suicide attempt: Status: Acute Plan 47-year-old female with history of PTSD, borderline personality disorder, depressive disorder with history of multiple suicide attempts, hyperlipidemia, GERD, jtg-[id number]-bicffzvni type 2 diabetes admitted for toxic ingestion of acetaminophen with attempt to commit suicide. # intentional acetaminophen overdose 2/2 Suicidal ideation worsening depression and SI over the last several days acetaminophen level below 17 this morning poison control contacted. Continue acetylcysteine as ordered LFT's normal. sitter consult placed care team consult as patient medically cleared for placement to psychiatry # depression, PTSD, borderline personality disorder Continue home meds # crh-mlrdewa-gppaafugo type 2 diabetes-without hyperglycemia diabetic diet Humalog on sliding-scale hold metformin # GERD continue PPI # hyperlipidemia continue statin #Chronic normocytic anemia H/H baseline, above transfusion threshold continue ferrous sulfate DVT prophylaxis-Lovenox Full code Patient requires inpatient stay overnight for management of intentional acetaminophen overdose requiring treatment with N-acetylcysteine with close monitoring by poison Control and placement to Psychiatry once medically cleared Time Spent With Patient Time: Total time managing care of this patient today ____ minutes. Quality Stroke Does the patient have a stroke diagnosis?: No VTE Prior VTE?: No VTE Risk Level:: Medical - moderate - high VTE Device Contraindication: Treatment Not Indicated VTE Drug Contraindication: N/A - Med Ordered
--- NOTE | 2023-03-20 14:50 | PC.NURSE ---
pt refused to have tele monitor, took of her IV and did not want a new IV insertion. this nurse tried to explain about the importance of the med to the pt but she was still refusing. pt also reported seeing her dad and hearing voices say that the Iv medicine is poison . notified. Care team consulted.
[2023-03-20 15:46] LABS: Glucose, Whole Blood 112 mg/dL (60-115)
[2023-03-20] MEDS: Enoxaparin Sodium 40 MG/0.4 ML SYRINGE SUBCUT (17:08)
[2023-03-20] MEDS: metFORMIN HCl 500 MG TABLET PO (17:08)
[2023-03-20 20:01] LABS: Glucose, Whole Blood 125 mg/dL (60-115)
[2023-03-20 20:04] LABS: Alanine Aminotransferase 15 U/L (0-31); Albumin Level 3.8 g/dL (3.5-5.0); Alkaline Phosphatase 98 U/L (39-117); Aspartate Amino Transferase 16 U/L (5-31); Bilirubin Direct < 0.2 mg/dL (0.0-0.5); Bilirubin Total 0.2 mg/dL (0.0-1.0); Total Protein 6.5 g/dL (6.5-8.0)
[2023-03-20] MEDS: Sennosides 8.6 MG TABLET 17.2 MG PO (20:57)
[2023-03-20] MEDS: Prazosin HCL 1 MG CAPSULE 4 MG PO (20:58)
[2023-03-20] MEDS: Atorvastatin Calcium 10 MG TABLET PO (20:58)
[2023-03-20] MEDS: traZODone HCL 50 MG TABLET 150 MG PO (20:58)
[2023-03-20] MEDS: Mirtazapine 7.5 MG TABLET PO (20:58)
[2023-03-20] MEDS: Montelukast Sodium 10 MG TABLET PO (20:58)
[2023-03-21] MEDS: 0.9 % Sodium Chloride Flush 3 ML SYRINGE IVFLUSH ×2 (01:19→09:47)
[2023-03-21 03:21] VITALS: BP 130/76; PULSE 83; RESP 12; TEMP 36.1; O2SAT 93
[2023-03-21] MEDS: Omeprazole 20 MG CAPSULE.DR PO (05:42)
[2023-03-21 07:08] LABS: Alanine Aminotransferase 15 U/L (0-31); Albumin Level 3.6 g/dL (3.5-5.0); Alkaline Phosphatase 97 U/L (39-117); Aspartate Amino Transferase 15 U/L (5-31); Bilirubin Direct < 0.2 mg/dL (0.0-0.5); Bilirubin Total 0.2 mg/dL (0.0-1.0); Total Protein 5.7 g/dL (6.5-8.0)
[2023-03-21 07:58] VITALS: BP 146/88; PULSE 86; TEMP 36.6; O2SAT 95
[2023-03-21 08:05] LABS: Glucose, Whole Blood 90 mg/dL (60-115)
[2023-03-21 08:52] LABS: Glucose, Whole Blood 96 mg/dL (60-115)
[2023-03-21] MEDS: fluPHENAZine HCl 5 MG TABLET PO (09:47)
[2023-03-21] MEDS: FLUoxetine HCl 20 MG CAPSULE 80 MG PO (09:47)
[2023-03-21] MEDS: lisinopriL 5 MG TABLET PO (09:47)
[2023-03-21] MEDS: Benztropine Mesylate 1 MG TABLET PO (09:47)
[2023-03-21] MEDS: metFORMIN HCl 500 MG TABLET PO (09:48)
--- NOTE | 2023-03-21 10:19 | MHC.CM.PN ---
Addendum entered by Ros Mancera RN 03/21/23 15:05: PT CLEARED BY PSYCH AND WILL RETURN TO , STAFF FOR TRANSPORT. Original Note: PT MEDICALLY CLEARED FOR D/C, DISPO PENDING CARE TEAM, CM WILL CONT TO FOLLOW.
[2023-03-21] MEDS: Lactulose 20 GM/30 ML SOLUTION PO (10:52)
[2023-03-21 11:19] LABS: Glucose, Whole Blood 87 mg/dL (60-115)
[2023-03-21 12:00] VITALS: BP 138/79; PULSE 89; RESP 19; TEMP 36.6; O2SAT 96
--- NOTE | 2023-03-21 12:22 | HO.PM.IMPN ---
Subjective Subjective Date of Service: 03/21/23 Interval History: no complaints Physical Exam Vital Signs: Vital Signs: Last Vital Signs Temp 97.8 F 03/21/23 12:00 Pulse 89 03/21/23 12:00 Resp 19 03/21/23 12:00 BP 138/79 03/21/23 12:00 Pulse Ox 96 03/21/23 12:00 O2 Del Method Room Air 03/21/23 12:00 BMI result Body Mass Index 36.9 General: AO X 3, no acute distress Resp: CTA bilateral, no accessory muscles used CVS: S1,S2,RRR GI: soft, non tender, non distended Neuro: motor grossly intact, alert Psych: appropriate affect, appropriate insight Objective Data Active Medications Acetaminophen (Acetaminophen 325 Mg Tablet) 650 mg PO Q6H PRN PRN Reason: Pain, Mild (Pain Scale 1-3) Albuterol Sulfate (Albuterol Sulfate 90 Mcg 8 Gm Inhaler) 2 puff INHALE Q4H PRN PRN Reason: Shortness Of Breath Or Wheezing Atorvastatin Calcium (Atorvastatin Calcium 10 Mg Tablet) 10 mg PO BEDTIME [facility] Last Admin: 03/20/23 20:58 Dose: 10 mg Documented By: BRIE Benztropine Mesylate (Benztropine Mesylate 1 Mg Tablet) 1 mg PO BID [facility] Last Admin: 03/21/23 09:47 Dose: 1 mg Documented By: KARLA Chlorpromazine HCl (Chlorpromazine Hcl 25 Mg Tablet) 50 mg PO TID PRN PRN Reason: Agitation Last Admin: 03/20/23 12:41 Dose: 50 mg Documented By: MAYA Docusate Sodium (Docusate Sodium 100 Mg Capsule) 100 mg PO DAILY PRN PRN Reason: Constipation Enoxaparin Sodium (Enoxaparin Sodium 40 Mg/0.4 Ml Syringe) 40 mg SUBCUT Q24H [facility] Last Admin: 03/20/23 17:08 Dose: 40 mg Documented By: MAYA Fluoxetine HCl (Fluoxetine Hcl 20 Mg Capsule) 80 mg PO DAILY [facility] Last Admin: 03/21/23 09:47 Dose: 80 mg Documented By: KARLA Fluphenazine HCl (Fluphenazine Hcl 5 Mg Tablet) 5 mg PO BID [facility] Last Admin: 03/21/23 09:47 Dose: 5 mg Documented By: KARLA Glucose (Glucose Gel 15 Gm Gel..Gram.) 15 gm PO Q15M PRN; Protocol PRN Reason: per Hypoglycemia Standing Ord. Dextrose (D10) 250 mls @ 750 mls/hr IV Q15M PRN; Protocol PRN Reason: per Hypoglycemia Standing Ord. Insulin Human Lispro (Insulin Lispro 100 Unit/Ml 3 Ml Vial) 0 unit SUBCUT QIDACHS [facility]; Protocol Last Admin: 03/21/23 11:23 Dose: Not Given Documented By: KARLA Non-Admin Reason: No Insulin Coverage Lactulose (Lactulose 20 Gm/30 Ml Solution) 20 gm PO BID PRN PRN Reason: Constipation Last Admin: 03/21/23 10:52 Dose: 20 gm Documented By: KARLA Lisinopril (Lisinopril 5 Mg Tablet) 5 mg PO DAILY [facility]; Protocol Last Admin: 03/21/23 09:47 Dose: 5 mg Documented By: KARLA Meclizine HCl (Meclizine Hcl 25 Mg Tablet) 25 mg PO DAILY PRN PRN Reason: dizziness Metformin HCl (Metformin Hcl 500 Mg Tablet) 500 mg PO BIDWM [facility] Last Admin: 03/21/23 09:48 Dose: 500 mg Documented By: KARLA Mirtazapine (Mirtazapine 7.5 Mg Tablet) 7.5 mg PO BEDTIME [facility] Last Admin: 03/20/23 20:58 Dose: 7.5 mg Documented By: BRIE Montelukast Sodium (Montelukast Sodium 10 Mg Tablet) 10 mg PO BEDTIME [facility] Last Admin: 03/20/23 20:58 Dose: 10 mg Documented By: BRIE Omeprazole (Omeprazole 20 Mg Capsule.) 20 mg PO DAILY@0630 [facility] Last Admin: 03/21/23 05:42 Dose: 20 mg Documented By: JUSTIN Ondansetron HCl (Ondansetron Hcl 4 Mg/2 Ml Vial) 4 mg IVPUSH Q8H PRN PRN Reason: Nausea and Vomiting Last Admin: 03/19/23 16:44 Dose: 4 mg Documented By: TRICE Pharmacy Consult (Consult Rx Perform Med Rec) 1 each MISCELLANE ONCE PRN PRN Reason: Consult order Prazosin HCl (Prazosin Hcl 1 Mg Capsule) 4 mg PO BEDTIME [facility]; Protocol Last Admin: 03/20/23 20:58 Dose: 4 mg Documented By: BRIE Senna (Sennosides 8.6 Mg Tablet) 17.2 mg PO BEDTIME PRN PRN Reason: constipation Last Admin: 03/20/23 20:57 Dose: 17.2 mg Documented By: BRIE Sodium Chloride (0.9 % Sodium Chloride Flush 3 Ml Syringe) 3 ml IVFLUSH QSHIFT [facility] Last Admin: 03/21/23 09:47 Dose: 3 ml Documented By: KARLA Trazodone HCl (Trazodone Hcl 50 Mg Tablet) 150 mg PO BEDTIME [facility] Last Admin: 03/20/23 20:58 Dose: 150 mg Documented By: BRIE Labs 03/20/23 09:04 03/20/23 09:04 Labs: Laboratory Results - last 24 hr 03/19/23 03/20/23 03/20/23 20:58 15:42 19:04 POC Glucose 96 112 Total Bilirubin 0.2 Direct Bilirubin < 0.2 AST 16 ALT 15 Alkaline Phosphatase 98 Total Protein 6.5 Albumin 3.8 03/20/23 03/21/23 03/21/23 19:54 06:22 07:37 POC Glucose 125 H 90 Total Bilirubin 0.2 Direct Bilirubin < 0.2 AST 15 ALT 15 Alkaline Phosphatase 97 Total Protein 5.7 L Albumin 3.6 03/21/23 11:11 POC Glucose 87 Total Bilirubin Direct Bilirubin AST ALT Alkaline Phosphatase Total Protein Albumin Assessment and Plan (1) Acetaminophen overdose: Status: Acute (2) Suicide attempt: Status: Acute Plan 47F PMH PTSD, borderline personality disorder, depressive disorder with history of multiple suicide attempts, hyperlipidemia, GERD, [id number] type 2 diabetes admitted for toxic ingestion of acetaminophen with attempt to commit suicide. intentional acetaminophen overdose 2/2 Suicidal ideation completed acetylcysteine resolved medically cleared for care team eval depression, PTSD, borderline personality disorder Continue home meds [id number] type 2 diabetes-without hyperglycemia diabetic diet Humalog on sliding-scale hold metformin GERD continue PPI hyperlipidemia continue statin Chronic normocytic anemia H/H baseline, above transfusion threshold obesity weight loss recommended DVT prophylaxis-Lovenox Full code reason for continued hospitalization:awaiting care team eval Time Spent With Patient Time: Total time managing care of this patient today ____ minutes. Quality Stroke Does the patient have a stroke diagnosis?: No VTE Prior VTE?: No VTE Risk Level:: Medical - moderate - high VTE Device Contraindication: Treatment Not Indicated VTE Drug Contraindication: N/A - Med Ordered
--- NOTE | 2023-03-21 12:43 | MHC.CARE ---
CARE Team continues to reach out to patient's providers without success, following collateral information a clinician will meet with patient again and a final disposition can be made.
[2023-03-21] MEDS: chlorproMAZINE HCl 25 MG TABLET 50 MG PO (13:11)
[2023-03-21] MEDS: Docusate Sodium 100 MG CAPSULE PO (13:12)
--- NOTE | 2023-03-21 14:59 | P.DS_ITS ---
DS: Providers Provider Date of Service: 03/21/23 Date of admission: 03/19/23 16:08 Primary care physician: Maribel Marquez NP Consults: 03/19/23 14:02 Consult to Care Team Stat Comment: Reason for consultation: Possible overdose 03/19/23 16:20 Consult for Sitter Routine Reason for consultation: active SI, tylenol od 03/20/23 14:39 Consult to Care Team Routine Comment: Reason for consultation: medically clear, for eval and placement. DS: Diagnosis Discharge Diagnosis (1) Acetaminophen overdose: Status: Acute (2) Suicide attempt: Status: Acute DS: Summary Hospital Course Hospital Course: from initial hpi: 47-year-old female with history of PTSD, borderline personality disorder, depressive disorder with history of multiple suicide attempts, hyperlipidemia, GERD, [id number] type 2 diabetes presented to the ED via EMS following an intentional Tylenol overdose at about 13:00.? The patient reports she ran away from the [place] which she resides in and purchased 24 capsules of 500 mg acetaminophen and ingested the entire bottle with intent to kill herself (though per ED, not reliable as far as time of administration).? She states that she has been feeling increasingly suicidal over the last few days with worsening depression.? She is also endorsing auditory hallucinations but denies any visual hallucinations.? She denies any other toxic ingestion including other medications, illicit drugs, or alcohol.? She has had multiple Tylenol overdoses in the past and has been admitted to Psychiatry multiple times in the last 2 years.? She is currently experiencing mild diffuse abdominal discomfort and nausea but denies any vomiting, diarrhea, muscle cramping, shortness of breath, chest pain, lightheadedness.? On arrival, vital signs stable though has had intermittent tachycardia up to 105.? Hematology studies unremarkable, has chronic normocytic anemia consistent with baseline.? Renal function normal, electrolyte levels normal.? Glucose 131.? Total bilirubin 0.2, AST 18, ALT 18, alkaline phosphatase 117.? Salicylates level undetectable.? Acetaminophen level 170.? Ethyl alcohol level below detectable limits.? Urina lysis and urine tox screen pending.? EKG shows NSR, rate [address]/T- wave abnormalities.? QTC normal.? Poison control contacted by ED provider recommending treatment with acetylcysteine and supportive care.? Given questionable time of toxic ingestion, no indication for activated charcoal. hospital course: Patient was treated for intentional acetaminophen overdose due to suicidal ideation in the back on of depression, PTSD, borderline personality disorder. She was given acetylcysteine, liver remained stable. She was seen by care team who discussed with her outpatient providers. It was felt the patient would most benefit from discharge and continued community follow-up. For diabetes was treated with insulin. For GERD was continued on PPI. For hyperlipidemia was continue statin. Her chronic normocytic anemia hemoglobin stable. For obesity weight loss recommended. Time Spent with Patient Time attestation: Total time managing care of this patient today ____ minutes. Discharge coordination time: Greater than 30 minutes Quality: Safe Use of Opioids Does Pt have an Active Cancer Diagnosis on the Problem List?: No Quality: Stroke Does the patient have a stroke diagnosis?: No Physical Exam Vital Signs: Vital Signs: Last Vital Signs Temp 97.8 F 03/21/23 12:00 Pulse 89 03/21/23 12:00 Resp 19 03/21/23 12:00 BP 138/79 03/21/23 12:00 Pulse Ox 96 03/21/23 12:00 O2 Del Method Room Air 03/21/23 12:00 BMI result Body Mass Index 36.9 General: AO X 3, no acute distress Resp: CTA bilateral, no accessory muscles used CVS: S1,S2,RRR GI: soft, non tender, non distended Neuro: motor grossly intact, alert Psych: appropriate affect, appropriate insight DS: Data Data Completed and Pending Completed studies during hospitalization [Text1]: Procedures Insertion of Infusion Device into Left Internal Jugular Vein, Percutaneous Approach (02/09/22) Labs on day of discharge: Laboratory Results - last 24 hr 03/19/23 03/20/23 03/20/23 20:58 15:42 19:04 POC Glucose 96 112 Total Bilirubin 0.2 Direct Bilirubin < 0.2 AST 16 ALT 15 Alkaline Phosphatase 98 Total Protein 6.5 Albumin 3.8 03/20/23 03/21/23 03/21/23 19:54 06:22 07:37 POC Glucose 125 H 90 Total Bilirubin 0.2 Direct Bilirubin < 0.2 AST 15 ALT 15 Alkaline Phosphatase 97 Total Protein 5.7 L Albumin 3.6 03/21/23 11:11 POC Glucose 87 Total Bilirubin Direct Bilirubin AST ALT Alkaline Phosphatase Total Protein Albumin Discharge Plan Discharge Anticipated Discharge Date/Time: 03/21/23 14:55 Patient Disposition: Xfer Other Discharge Diagnosis: tyelnol OD Referrals: Maribel Marquez NP [Primary Care Provider] - 1 Week Discharge Medications: Continued ferrous sulfate 325 mg (65 mg iron) Tablet 325 mg PO DAILY benztropine 1 mg Tablet 1 mg PO BID fluoxetine 40 mg capsule 2 cap PO DAILY albuterol sulfate [Ventolin HFA] 90 mcg/actuation HFA aerosol inhaler 2 puff inhalation Q4-6H PRN (Reason: Shortness Of Breath Or Wheezing) fluphenazine HCl 5 mg tablet 1 tab PO BID chlorpromazine 50 mg tablet 1 tab PO TID PRN (Reason: Agitation) prazosin 1 mg Capsule 4 mg PO BEDTIME 30 Days Qty: 120 0RF Protocol: Hold for SBP< HOLD for SBP < : 90 trazodone 150 mg tablet 1 tab PO BEDTIME meclizine 25 mg tablet 25 mg PO DAILY PRN (Reason: dizziness) Qty: 6 0RF metformin 500 mg tablet 500 mg PO BIDWM atorvastatin 10 mg tablet 10 mg PO BEDTIME pantoprazole 40 mg tablet,delayed release (DR/EC) 40 mg PO DAILY@0630 montelukast 10 mg tablet 10 mg PO BEDTIME lisinopril 5 mg tablet 5 mg PO DAILY mirtazapine 15 mg tablet 7.5 mg PO BEDTIME sennosides [senna] 8.6 mg tablet 17.2 mg PO BEDTIME PRN (Reason: constipation) lactulose 10 gram/15 mL solution 30 ml PO BID PRN (Reason: Constipation) nystatin 100,000 unit/gram powder 1 appl topical BID cephalexin 500 mg capsule 500 mg PO QID Discharge Orders: Discharge Order (Routine); Ordered 03/21/23 Ordered By: Brad Portillo Diet: Advance to usual diet Activity on Discharge: As tolerated Stand Alone Forms: Patient Portal Discharge page Care Plan Goals: recovery Health Concerns: depression Plan of Treatment: outpatient psych follow up Assessment: see above
[2023-03-21 15:38] VITALS: BP 127/84; PULSE 102; RESP 20; TEMP 36; O2SAT 98
== END 2023-03-21 15:45 | disposition other institution (70) | DRG 918 ==
LOC: HO.ED 15:37 → HO.EDOVER 16:30 → HO.IMC 19:15
PROVIDERS: Internal Medicine; Student in an Organized Health Care Education/Training Program; Admitting Provider Physician Assistant; Emergency Provider Emergency Medicine; PCP Nurse Practitioner Family; Visit Provider Internal Medicine
DX: T39.1X2A Poisoning by 4-Aminophenol derivatives, intentional self-harm, initial encounter (principal); F33.9 Major depressive disorder, recurrent, unspecified; F43.10 Post-traumatic stress disorder, unspecified; E66.9 Obesity, unspecified; Z68.36 Body mass index [BMI] 36.0-36.9, adult; F17.210 Nicotine dependence, cigarettes, uncomplicated; F60.3 Borderline personality disorder; K21.9 Gastro-esophageal reflux disease without esophagitis; E11.9 Type 2 diabetes mellitus without complications; E78.5 Hyperlipidemia, unspecified; D64.9 Anemia, unspecified; Z71.6 Tobacco abuse counseling; Z88.0 Allergy status to penicillin; Z88.1 Allergy status to other antibiotic agents; Z88.2 Allergy status to sulfonamides; Z79.84 Long term (current) use of oral hypoglycemic drugs; Z79.899 Other long term (current) drug therapy
CPT/HCPCS: 36415; 80053; 80076; 80143; 80179; 80307; 81001; 81003; 81025; 82947; 85025; 87635; 93005; 99284; 99285; J0132; J1650; J2405

== ENCOUNTER 2023-03-25 13:51 | Emergency (ER) | payer MEDICARE, MEDICAID, SELFPAY ==
[2023-03-25 13:55] VITALS: BP 128/77; BP 130/80; PULSE 100; PULSE 107; RESP 14; TEMP 36.7; O2SAT 97; O2SAT 98; BMI 36.3
--- NOTE | 2023-03-25 13:59 | ED_ITS ---
HPI - General Adult General Chief complaint: Psychiatric Symptoms Stated complaint: crisis,si Time Seen by Provider: 03/25/23 13:58 Source: patient and EMS Mode of arrival: EMS Limitations: no limitations History of Present Illness HPI narrative: 47-year-old female history of bipolar two with melacholic features, depression, PTSD, diabetes, GERD, suicide attempts presenting to the emergency department with suicidal ideation and and command hallucinations. She recently had a Tylenol overdose. She reports increasing life stressors, she tells me she feels very depressed and suicidal at this time.? She reports visual and auditory hallucinations, tells me she is seeing her father pointing a gun at her. Denies tactile hallucinations.? Denies drugs, alcohol and tobacco.? No medical complaints. Related Data Home Medications Medication Instructions Recorded Confirmed trazodone 150 mg tablet 1 tab PO BEDTIME 09/23/22 03/19/23 benztropine 1 mg tablet 1 mg PO BID 12/19/22 03/19/23 ferrous sulfate 325 mg (65 mg 325 mg PO DAILY 12/19/22 03/19/23 iron) tablet albuterol sulfate 90 mcg/actuation 2 puff inhalation Q4-6H PRN 12/24/22 03/19/23 aerosol inhaler (Ventolin HFA) Shortness Of Breath Or Wheezing chlorpromazine 50 mg tablet 1 tab PO TID PRN Agitation 12/24/22 03/19/23 fluoxetine 40 mg capsule 2 cap PO DAILY 12/24/22 03/19/23 fluphenazine HCl 5 mg tablet 1 tab PO BID 12/24/22 03/19/23 atorvastatin 10 mg tablet 10 mg PO BEDTIME 03/05/23 03/19/23 lactulose 10 gram/15 mL oral 30 ml PO BID PRN Constipation 03/05/23 03/19/23 solution lisinopril 5 mg tablet 5 mg PO DAILY 03/05/23 03/19/23 metformin 500 mg tablet 500 mg PO BIDWM 03/05/23 03/19/23 mirtazapine 15 mg tablet 7.5 mg PO BEDTIME 03/05/23 03/19/23 montelukast 10 mg tablet 10 mg PO BEDTIME 03/05/23 03/19/23 nystatin 100,000 unit/gram topical 1 appl topical BID 03/05/23 03/19/23 powder pantoprazole 40 mg tablet,delayed 40 mg PO DAILY@0630 03/05/23 03/19/23 release sennosides 8.6 mg tablet (senna) 17.2 mg PO BEDTIME PRN constipation 03/05/23 03/19/23 cephalexin 500 mg capsule 500 mg PO QID 03/13/23 03/19/23 Previous Rx's Medication Instructions Recorded prazosin 1 mg capsule 4 mg PO BEDTIME 30 days #120 caps 10/18/21 meclizine 25 mg tablet 25 mg PO DAILY PRN dizziness #6 01/24/23 tabs Allergies Allergy/AdvReac Type Severity Reaction Status Date / Time azithromycin [AZITHROMYCIN] Allergy Severe Rash Verified 03/20/23 08:31 Fish Containing Products Allergy Severe Anaphylaxis Verified 03/20/23 08:31 codeine [Codeine] Allergy Intermediate Rash Verified 03/20/23 08:31 Penicillins Allergy Intermediate Rash Verified 03/20/23 08:31 prednisone [Prednisone] Allergy Intermediate Rash Verified 03/20/23 08:31 Sulfa (Sulfonamide Allergy Intermediate Rash Verified 03/20/23 08:31 Antibiotics) [Sulfa (Sulfonamides)] ziprasidone [From Geodon] Allergy Intermediate dysuria, Verified 03/20/23 08:31 rash Review of Systems Review of Systems: Constitutional : No Weight loss, No Fever, No Chills, No Fatigue, No Malaise ENT/Mouth : No sore throat, No Rhinorrhea Eyes: No Eye Pain, No Swelling, No Redness Cardiovascular : No Chest Pain, No SOB, No Dyspnea on Exertion, No Orthopnea, No Edema, No Palpitations Respiratory : No Cough, No Sputum, No Wheezing Gastrointestinal : No Nausea, No Vomiting, No Diarrhea, No Constipation, No abdominal Pain, No Hematochezia, No Melena Genitourinary : No Dysuria, No Urinary Frequency, No Hematuria, Musculoskeletal : No joint pain, No Myalgias, No Joint Swelling Skin : No Skin Lesions, No rash Neuro : No Weakness, No Numbness, No Dizziness, No Headache Psych : + Anxiety/Panic, + Depression, + SI Yes all other systems are reviewed and are negative [facility] Past Medical History Attestation statement: The following information was validated with the patient. 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 Household Members Other:: long-term Housing: Other Housing Other:: long-term Do you presently have visiting nurse or other home services: No Unable to assess alcohol history related to: Unknown Alcohol intake: former Patient Tobacco Use Status: Current everyday Tobacco user Tobacco use type: Cigarette Cigarette Packs Per Day: 1 Cigarettes Per Day: 15 Years Smoked: 22 Smoked in Last 30 Days: Yes e-Cigarette/Vaping Use: Never Used Use of substances other than those prescribed or required for medical reasons: No Substance Use Type: Marijuana Advance Directives: No service: No Current occupational status: unemployed and disabled Sexual orientation: Don't Know Physical Exam ED Vital Signs: Vital Signs - 24 hr 03/25/23 13:55 Temperature 98.1 F Pulse Rate 100 Respiratory Rate 14 Blood Pressure 128/77 Pulse Oximetry 97 Oxygen Delivery Method Room Air BMI result Body Mass Index 36.3 vss Appearance: Alert.? Oriented X3.? No acute distress.? Head:? Normocephalic, atraumatic, no step-offs or deformities Eyes: Pupils equal, round and reactive to light.? Neck: Normal inspection.? Neck supple.? CVS: Normal heart rate and rhythm.? Pulses normal.? Respiratory: No respiratory distress.? Breath sounds normal.? Abdomen: Soft and nontender.? Skin: Skin warm and dry.? Normal skin color.? Normal skin turgor.?Old self- inflicted superficial wounds to? bilateral forearms, anterior thighs bilaterally , stomach Extremities: No lower extremity edema.? No calf ttp.? 5/5 strength to bilateral upper and lower extremities Neuro: Oriented X 3.? No motor deficit.? No sensory deficit. CN 2-12 intact Course Reevaluation(s) Reevaluation #1: CBC appears to be around patient's baseline. Chemistry unremarkable. Urine toxicology negative. Salicylates, acetaminophen and ethanol negative. At this time patient to be placed in observation to allow more time to be evaluated by behavioral health team. At time observation was started patient common cooperative no acute distress, states she is feeling better and would like to go home. Pending evaluation by care team Time: 16:00 Reevaluation #2: 1630-Tylenol level is negative. Patient was seen by crisis and plan for discharge back home to her long-term. No current SI Medical Decision Making Medical Decision Making MDM Narrative: 47 year-old female presenting with anxiety, depression, visual and auditory hallucinations , suicidal ideation, superficial wounds . Physical examination w/ ? Superficial scar wounds to bilateral forearms,? anterior thigh use, abdomen Likley MDD vs borderline personality do vs anxiety.? Unlikely metabolic causes. Plan- medical clearance and evaluation by care team Differential Diagnosis Differential Diagnoses: The differential diagnosis associated with the presentation includes Likley MDD vs borderline personality do vs anxiety.? Unlikely metabolic causes. Admission/Observation Consideration of admission/observation: Escalation of care including admission/observation considered Lab Data [facility] Lab Attestation statement: I reviewed the patient's lab results. 03/25/23 15:25 03/25/23 15:26 Labs: Lab Results 03/25/23 03/25/23 03/25/23 Range/Units 14:20 14:20 14:20 WBC (4.8-10.8) X10*3/uL RBC (4.20-5.50) X10*6/uL Hgb (12.0-16.0) g/dl Hct (37.0-47.0) % MCV (80.0-98.0) fL MCH (27.0-33.0) pg MCHC (31.0-35.0) g/dl RDW (11.0-16.0) % Plt Count (160-400) X10*3/uL MPV (9.4-12.3) fL Immature Gran % (Auto) (0.0-0.4) % Neut % (Auto) (45-73) % Lymph % (Auto) (20-40) % [place] % (Auto) (2-11) % Eos % (Auto) (0-4) % Baso % (Auto) (0-2) % Lymph # (Auto) (1.2-4.9) X10*3/uL [place] # (Auto) (0.1-1.2) X10*3/uL Eos # (Auto) (0.0-0.4) X10*3/uL Baso # (Auto) (0.0-0.2) X10*3/uL Abs Immat Gran (auto) (0.00-0.03) X10*3/uL Absolute Neuts (auto) (2.0-8.3) x10*3/uL Absolute Nucleated RBC (0.0-0.012) X10*3/uL Nucleated RBC % (auto) (0.0-0.2) /100WBC Sodium (135-145) mmol/L Potassium (3.3-5.1) mmol/L Chloride (96-108) mmol/L Carbon Dioxide (22-29) mmol/L Anion Gap (12-20) BUN (9-16) mg/dL Creatinine (0.5-1.4) mg/dL Estim Creat Clear Calc Estimated GFR Random Glucose (60-115) mg/dL Calcium (8.4-10.2) mg/dL Magnesium (1.6-2.6) mg/dL Total Bilirubin (0.0-1.0) mg/dL AST (5-31) U/L ALT (0-31) U/L Alkaline Phosphatase (39-117) U/L Total Protein (6.5-8.0) g/dL Albumin (3.5-5.0) g/dL Urine Color Yellow Urine Appearance Clear Urine pH 7.0 (5.0-9.0) Ur Specific [place] <= 1.005 (1.005-1.025) Urine Protein Negative (Neg-Trace) mg/dL Urine Glucose (UA) Negative (Negative) mg/dL Urine Ketones Negative (Negative) mg/dL Urine Blood Negative (Negative) Urine Nitrite Negative (Negative) Ur Leukocyte Esterase Trace H (Negative) Urine RBC 0-2 (0-2) /HPF Urine WBC 0-5 (0-5) /HPF Ur Squamous Epith Cells 0-2 (0-2) /HPF Urine Bacteria None Seen (None Seen) Hyaline Casts 0-2 (0-2) /LPF Salicylates (15-30) mg/dL Urine Opiates Screen Not Detected (Not Detect) Urine Fentanyl Screen Not Detected (Not Detect) Acetaminophen (<30) mcg/mL Ur Barbiturates Screen Not Detected (Not Detect) Ur Phencyclidine Scrn Not Detected (Not Detect) Ur Amphetamines Screen Not Detected (Not Detect) U Benzodiazepines Scrn Not Detected (Not Detect) Urine Cocaine Screen Not Detected (Not Detect) U Marijuana (THC) Screen Not Detected (Not Detect) Ethyl Alcohol mg/dL COVID-19 (NICK) Negative (Negative) COVID-19 Clin Com See Note 03/25/23 03/25/23 Range/Units 15:25 15:26 WBC 6.7 (4.8-10.8) X10*3/uL RBC 4.07 L (4.20-5.50) X10*6/uL Hgb 11.6 L (12.0-16.0) g/dl Hct 36.1 L (37.0-47.0) % MCV 88.7 (80.0-98.0) fL MCH 28.5 (27.0-33.0) pg MCHC 32.1 (31.0-35.0) g/dl RDW 13.8 (11.0-16.0) % Plt Count 253 (160-400) X10*3/uL MPV 10.0 (9.4-12.3) fL Immature Gran % (Auto) 0.3 (0.0-0.4) % Neut % (Auto) 63.1 (45-73) % Lymph % (Auto) 22.7 (20-40) % [place] % (Auto) 8.0 (2-11) % Eos % (Auto) 5.4 H (0-4) % Baso % (Auto) 0.5 (0-2) % Lymph # (Auto) 1.5 (1.2-4.9) X10*3/uL [place] # (Auto) 0.5 (0.1-1.2) X10*3/uL Eos # (Auto) 0.4 (0.0-0.4) X10*3/uL Baso # (Auto) 0.0 (0.0-0.2) X10*3/uL Abs Immat Gran (auto) 0.02 (0.00-0.03) X10*3/uL Absolute Neuts (auto) 4.2 (2.0-8.3) x10*3/uL Absolute Nucleated RBC 0.000 (0.0-0.012) X10*3/uL Nucleated RBC % (auto) 0.0 (0.0-0.2) /100WBC Sodium 140 (135-145) mmol/L Potassium 4.2 (3.3-5.1) mmol/L Chloride 108 (96-108) mmol/L Carbon Dioxide 20 L (22-29) mmol/L Anion Gap 16 (12-20) BUN 9 (9-16) mg/dL Creatinine 0.78 (0.5-1.4) mg/dL Estim Creat Clear Calc 106.0 Estimated GFR > 60 Random Glucose 148 H (60-115) mg/dL Calcium 9.3 (8.4-10.2) mg/dL Magnesium 1.6 (1.6-2.6) mg/dL Total Bilirubin 0.3 (0.0-1.0) mg/dL AST 23 (5-31) U/L ALT 24 (0-31) U/L Alkaline Phosphatase 114 (39-117) U/L Total Protein 7.2 (6.5-8.0) g/dL Albumin 4.3 (3.5-5.0) g/dL Urine Color Urine Appearance Urine pH (5.0-9.0) Ur Specific [place] (1.005-1.025) Urine Protein (Neg-Trace) mg/dL Urine Glucose (UA) (Negative) mg/dL Urine Ketones (Negative) mg/dL Urine Blood (Negative) Urine Nitrite (Negative) Ur Leukocyte Esterase (Negative) Urine RBC (0-2) /HPF Urine WBC (0-5) /HPF Ur Squamous Epith Cells (0-2) /HPF Urine Bacteria (None Seen) Hyaline Casts (0-2) /LPF Salicylates < 5.0 L (15-30) mg/dL Urine Opiates Screen (Not Detect) Urine Fentanyl Screen (Not Detect) Acetaminophen < 17 (<30) mcg/mL Ur Barbiturates Screen (Not Detect) Ur Phencyclidine Scrn (Not Detect) Ur Amphetamines Screen (Not Detect) U Benzodiazepines Scrn (Not Detect) Urine Cocaine Screen (Not Detect) U Marijuana (THC) Screen (Not Detect) Ethyl Alcohol < 10 mg/dL COVID-19 (NICK) (Negative) COVID-19 Clin Com Core Measures AMI core measures followed: Yes Measure exclusions: not indicated Critical Care Time Critical Care Time Critical Care Time: No Discharge Plan Discharge Clinical Impression: Depression, Borderline personality disorder Patient Disposition: Home, Self-Care Instructions: Borderline Personality Disorder (DC) Prescriptions: No Action ferrous sulfate 325 mg (65 mg iron) Tablet 325 mg PO DAILY benztropine 1 mg Tablet 1 mg PO BID fluoxetine 40 mg capsule 2 cap PO DAILY albuterol sulfate [Ventolin HFA] 90 mcg/actuation HFA aerosol inhaler 2 puff inhalation Q4-6H PRN (Reason: Shortness Of Breath Or Wheezing) fluphenazine HCl 5 mg tablet 1 tab PO BID chlorpromazine 50 mg tablet 1 tab PO TID PRN (Reason: Agitation) prazosin 1 mg Capsule 4 mg PO BEDTIME 30 Days Qty: 120 0RF Protocol: Hold for SBP< HOLD for SBP < : 90 trazodone 150 mg tablet 1 tab PO BEDTIME meclizine 25 mg tablet 25 mg PO DAILY PRN (Reason: dizziness) Qty: 6 0RF metformin 500 mg tablet 500 mg PO BIDWM atorvastatin 10 mg tablet 10 mg PO BEDTIME pantoprazole 40 mg tablet,delayed release (DR/EC) 40 mg PO DAILY@0630 montelukast 10 mg tablet 10 mg PO BEDTIME lisinopril 5 mg tablet 5 mg PO DAILY mirtazapine 15 mg tablet 7.5 mg PO BEDTIME sennosides [senna] 8.6 mg tablet 17.2 mg PO BEDTIME PRN (Reason: constipation) lactulose 10 gram/15 mL solution 30 ml PO BID PRN (Reason: Constipation) nystatin 100,000 unit/gram powder 1 appl topical BID cephalexin 500 mg capsule 500 mg PO QID Interventions: [place]-Suicide Risk Severity Scale Last Done: 03/25/23 15:30
[2023-03-25 14:29] LABS: Appearance Urine Clear; Color Urine Yellow; Glucose Urine UA Negative (Negative); Leukocyte Esterase Urine Trace (Negative); Nitrite Urine Negative (Negative); Specific Gravity - Urine <= 1.005 (1.005-1.025); UMIC TRIGGER UACC YES; Urine Blood Negative (Negative); Urine Ketones Negative (Negative); Urine Protein Negative (Neg-Trace)
[2023-03-25 14:37] LABS: Bacteria Urine None Seen (None Seen); Hyaline Casts Urine 0-2 /LPF (0-2); RBC Urine 0-2 /HPF (0-2); Squamous Epithelial Cell Urine 0-2 /HPF (0-2); WBC Urine 0-5 /HPF (0-5)
[2023-03-25 14:38] LABS: Amphetamine Screen Urine Not Detected (Not Detect); Barbiturates, Urine Not Detected (Not Detect); Benzodiazepines Screen Urine Not Detected (Not Detect); Cannabinoid Screen Urine Not Detected (Not Detect); Cocaine Screen Urine Not Detected (Not Detect); Fentanyl, urine Not Detected (Not Detect); Opiate Screen Urine Not Detected (Not Detect); Phencyclidine Screen Urine Not Detected (Not Detect)
[2023-03-25 14:42] LABS: COVID-19 Test Negative (Negative); IDNOW Serial# 6674DD1D
[2023-03-25 15:30] LABS: MANUAL DIFF FLAG NO
[2023-03-25 15:32] LABS: Basophils Percent Auto 0.5 % (0-2); Eosinophils Absolute Auto 0.4 X10*3/uL (0.0-0.4); Eosinophils Percent Auto 5.4 % (0-4); Hematocrit 36.1 % (37.0-47.0); Hemoglobin 11.6 g/dl (12.0-16.0); Imm Gran Abs Auto 0.02 X10*3/uL (0.00-0.03); Imm Gran Pct Auto 0.3 % (0.0-0.4); Lymphocytes Absolute Auto 1.5 X10*3/uL (1.2-4.9); Lymphocytes Percent Auto 22.7 % (20-40); Mean Corpuscular HGB Conc 32.1 g/dl (31.0-35.0); Mean Corpuscular Hemoglobin 28.5 pg (27.0-33.0); Mean Corpuscular Volume 88.7 fL (80.0-98.0); Monocytes Absolute Auto 0.5 X10*3/uL (0.1-1.2); Neutrophils Absolute Auto 4.2 x10*3/uL (2.0-8.3); Neutrophils Percent Auto 63.1 % (45-73); Platelet Count 253 X10*3/uL (160-400); Red Blood Count 4.07 X10*6/uL (4.20-5.50); Red Cell Distribution Width 13.8 % (11.0-16.0); White Blood Count 6.7 X10*3/uL (4.8-10.8)
[2023-03-25 15:56] LABS: Acetaminophen LAB < 17 mcg/mL (<30); Alanine Aminotransferase 24 U/L (0-31); Albumin Level 4.3 g/dL (3.5-5.0); Alkaline Phosphatase 114 U/L (39-117); Anion Gap 16 (12-20); Aspartate Amino Transferase 23 U/L (5-31); Bilirubin Total 0.3 mg/dL (0.0-1.0); Blood Urea Nitrogen 9 mg/dL (9-16); Calcium 9.3 mg/dL (8.4-10.2); Carbon Dioxide 20 mmol/L (22-29); Chloride 108 mmol/L (96-108); Estimated Glomerular Filt Rate > 60; Ethanol < 10 mg/dL; Glucose Random 148 mg/dL (60-115); Magnesium 1.6 mg/dL (1.6-2.6); Potassium 4.2 mmol/L (3.3-5.1); Salicylate < 5.0 mg/dL (15-30); Sodium 140 mmol/L (135-145); Total Protein 7.2 g/dL (6.5-8.0)
== END 2023-03-25 16:44 | disposition home or self-care (01) ==
PROVIDERS: Physician Assistant; Emergency Provider Student in an Organized Health Care Education/Training Program; PCP Nurse Practitioner Family
DX: F33.1 Major depressive disorder, recurrent, moderate (principal); R45.851 Suicidal ideations; F17.210 Nicotine dependence, cigarettes, uncomplicated; Z20.822 Contact with and (suspected) exposure to COVID-19; Z20.828 Contact with and (suspected) exposure to other viral communicable diseases; Z71.6 Tobacco abuse counseling; Z79.899 Other long term (current) drug therapy
CPT/HCPCS: 80053; 80143; 80179; 80307; 81001; 83735; 85025; 87635; 99284

== ENCOUNTER 2023-03-31 12:05 | Emergency (ER) | payer MEDICARE, MEDICAID, SELFPAY ==
[2023-03-31 12:07] VITALS: BP 121/94; PULSE 96; PULSE 98; RESP 18; TEMP 36.6; O2SAT 96; O2SAT 97; BMI 36.3
--- NOTE | 2023-03-31 12:20 | ED_ITS ---
HPI - Psych General Chief Complaint: Psychiatric Symptoms Stated Complaint: SI PER EMS Source: patient Mode of arrival: EMS Limitations: no limitations History of Present Illness HPI Narrative: 47 year old female with history of PTSD, MDD, borderline personality disorder, anxiety, and diabetes presents today via EMS with suicidal ideations. Patient states that Father's day is coming up which is a trigger for her PTSD. She reports having visual hallucinations of her father telling her to kill herself. She has a plan to go to the store and buy medication to overdose on. Denies HI. Denies tactile or auditory hallucinations. Denies any medical complaints at this time. Related Data Home Medications Medication Instructions Recorded Confirmed trazodone 150 mg tablet 1 tab PO BEDTIME 09/23/22 03/19/23 benztropine 1 mg tablet 1 mg PO BID 12/19/22 03/19/23 ferrous sulfate 325 mg (65 mg 325 mg PO DAILY 12/19/22 03/19/23 iron) tablet albuterol sulfate 90 mcg/actuation 2 puff inhalation Q4-6H PRN 12/24/22 03/19/23 aerosol inhaler (Ventolin HFA) Shortness Of Breath Or Wheezing chlorpromazine 50 mg tablet 1 tab PO TID PRN Agitation 12/24/22 03/19/23 fluoxetine 40 mg capsule 2 cap PO DAILY 12/24/22 03/19/23 fluphenazine HCl 5 mg tablet 1 tab PO BID 12/24/22 03/19/23 atorvastatin 10 mg tablet 10 mg PO BEDTIME 03/05/23 03/19/23 lactulose 10 gram/15 mL oral 30 ml PO BID PRN Constipation 03/05/23 03/19/23 solution lisinopril 5 mg tablet 5 mg PO DAILY 03/05/23 03/19/23 metformin 500 mg tablet 500 mg PO BIDWM 03/05/23 03/19/23 mirtazapine 15 mg tablet 7.5 mg PO BEDTIME 03/05/23 03/19/23 montelukast 10 mg tablet 10 mg PO BEDTIME 03/05/23 03/19/23 nystatin 100,000 unit/gram topical 1 appl topical BID 03/05/23 03/19/23 powder pantoprazole 40 mg tablet,delayed 40 mg PO DAILY@0630 03/05/23 03/19/23 release sennosides 8.6 mg tablet (senna) 17.2 mg PO BEDTIME PRN constipation 03/05/23 03/19/23 cephalexin 500 mg capsule 500 mg PO QID 03/13/23 03/19/23 Previous Rx's Medication Instructions Recorded prazosin 1 mg capsule 4 mg PO BEDTIME 30 days #120 caps 10/18/21 meclizine 25 mg tablet 25 mg PO DAILY PRN dizziness #6 01/24/23 tabs Allergies Allergy/AdvReac Type Severity Reaction Status Date / Time azithromycin [AZITHROMYCIN] Allergy Severe Rash Verified 03/20/23 08:31 Fish Containing Products Allergy Severe Anaphylaxis Verified 03/20/23 08:31 codeine [Codeine] Allergy Intermediate Rash Verified 03/20/23 08:31 Penicillins Allergy Intermediate Rash Verified 03/20/23 08:31 prednisone [Prednisone] Allergy Intermediate Rash Verified 03/20/23 08:31 Sulfa (Sulfonamide Allergy Intermediate Rash Verified 03/20/23 08:31 Antibiotics) [Sulfa (Sulfonamides)] ziprasidone [From Geodon] Allergy Intermediate dysuria, Verified 03/20/23 08:31 rash Review of Systems Review of Systems: Yes all other systems are reviewed and are negative [facility] Past Medical History Attestation statement: The following information was validated with the patient. 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 Household Members Other:: [facility] Housing: Other Housing Other:: [facility] Do you presently have visiting nurse or other home services: No Unable to assess alcohol history related to: Unknown Alcohol intake: former Patient Tobacco Use Status: Current everyday Tobacco user Tobacco use type: Cigarette Cigarette Packs Per Day: 1 Cigarettes Per Day: 15 Years Smoked: 22 e-Cigarette/Vaping Use: Never Used Substance Use Type: Marijuana Advance Directives: No Advance Directives Information Provided: No service: No Current occupational status: unemployed and disabled Sexual orientation: Don't Know Physical Exam Vital Signs: Vital Signs: Last Vital Signs Temp 97.9 F 03/31/23 12:07 Pulse 98 03/31/23 12:07 Resp 18 03/31/23 12:07 BP 121/94 H 03/31/23 12:07 Pulse Ox 97 03/31/23 12:07 O2 Del Method Room Air 03/31/23 12:07 BMI result Body Mass Index 36.3 Const: Orientation/consciousness: oriented to person, oriented to place and oriented to time Eyes: Pupils: Equal, round and reactive pupils present Resp: Effort & Inspection: normal respiratory effort and able to speak in complete sentences Auscultation: clear to auscultation bilaterally, no crackles, no rales and no rhonchi Cardio: Rate: regular rate Rhythm: regular rhythm Heart sounds: S1 normal heart sound present, S2 normal heart sound present, no gallops, no murmurs and no rubs Neuro: General: oriented to person, oriented to place and oriented to time Cranial nerves: Yes CN's II-XII intact bilaterally, Yes Equal, round and reactive pupils present, Yes Normal accommodation reflex present, Yes Bilaterally intact EOM present and Yes Nystagmus not present Gait exam (Neuro): Normal gait present Course Reevaluation(s) Reevaluation #1: On reeval of patient, patient is requesting to go home. She states she is no longer feeling suicidal and believes she was just having a panic attack. She reports feeling calm now. Patient is stable for discharge. As the patient is well known to this department, I feel safe discharging the patient home. Time: 13:59 Medications Administered Discontinued Medications Generic Name Dose Route Start Last Admin Trade Name Freq PRN Reason Stop Dose Admin Nicotine 21 mg 03/31/23 12:20 03/31/23 12:54 Nicotine 21 Mg Patch.[id number] TRANSDERMA 03/31/23 12:21 21 mg ONCE ONE Administration Medical Decision Making Medical Decision Making [facility] Narrative: 47 year old female with history of MDD, PTSD, borderline personality disorder, and anxiety presents today via EMS with suicidal ideation stating she hears her father telling her to kill herself. Reports plan to go to the store and OD on medication. No HI. No medical complaints at this time. Vital signs stable. Physical exam unremarkable. CN 2-12 intact. Patient admits to daily tobacco use and is requesting a nicotine patch. Plan: drug screen, nicotine patch, care team consult, reeval Differential Diagnosis Differential Diagnoses: The differential diagnosis associated with the p resentation includes anxiety, depression, SI Independent Historian Clinical information obtained from an independent historian. History obtained from or confirmed by: EMS External Record Review External record reviewed: Inpatient record Discharge Plan Discharge Clinical Impression: Anxiety Patient Disposition: Home, Self-Care Instructions: Anxiety (ED) Additional Instructions: You are stating that you are not suicidal and that you do not want to harm yourself or anyone else. You are stating that you had a panic attack. Return to the emergency department if you are feeling like you are going to hurt yourself or others. Follow up with your PCP and mental health provider. Prescriptions: No Action ferrous sulfate 325 mg (65 mg iron) Tablet 325 mg PO DAILY benztropine 1 mg Tablet 1 mg PO BID fluoxetine 40 mg capsule 2 cap PO DAILY albuterol sulfate [Ventolin HFA] 90 mcg/actuation HFA aerosol inhaler 2 puff inhalation Q4-6H PRN (Reason: Shortness Of Breath Or Wheezing) fluphenazine HCl 5 mg tablet 1 tab PO BID chlorpromazine 50 mg tablet 1 tab PO TID PRN (Reason: Agitation) prazosin 1 mg Capsule 4 mg PO BEDTIME 30 Days Qty: 120 0RF Protocol: Hold for SBP< HOLD for SBP < : 90 trazodone 150 mg tablet 1 tab PO BEDTIME meclizine 25 mg tablet 25 mg PO DAILY PRN (Reason: dizziness) Qty: 6 0RF metformin 500 mg tablet 500 mg PO BIDWM atorvastatin 10 mg tablet 10 mg PO BEDTIME pantoprazole 40 mg tablet,delayed release (DR/EC) 40 mg PO DAILY@0630 montelukast 10 mg tablet 10 mg PO BEDTIME lisinopril 5 mg tablet 5 mg PO DAILY mirtazapine 15 mg tablet 7.5 mg PO BEDTIME sennosides [senna] 8.6 mg tablet 17.2 mg PO BEDTIME PRN (Reason: constipation) lactulose 10 gram/15 mL solution 30 ml PO BID PRN (Reason: Constipation) nystatin 100,000 unit/gram powder 1 appl topical BID cephalexin 500 mg capsule 500 mg PO QID Interventions: [place]-Suicide Risk Severity Scale Last Done: 03/31/23 12:59
[2023-03-31] MEDS: Nicotine 21 MG PATCH.TD24 TRANSDERMA (12:54)
[2023-03-31 14:09] LABS: Amphetamine Screen Urine Not Detected (Not Detect); Barbiturates, Urine Not Detected (Not Detect); Benzodiazepines Screen Urine Not Detected (Not Detect); Cannabinoid Screen Urine Not Detected (Not Detect); Cocaine Screen Urine Not Detected (Not Detect); Fentanyl, urine Not Detected (Not Detect); Opiate Screen Urine Not Detected (Not Detect); Phencyclidine Screen Urine Not Detected (Not Detect)
== END 2023-03-31 14:24 | disposition home or self-care (01) ==
PROVIDERS: Emergency Provider Emergency Medicine
DX: F41.9 Anxiety disorder, unspecified (principal); R45.851 Suicidal ideations; F31.9 Bipolar disorder, unspecified; E11.9 Type 2 diabetes mellitus without complications; E78.5 Hyperlipidemia, unspecified; F43.10 Post-traumatic stress disorder, unspecified; D64.9 Anemia, unspecified; F17.210 Nicotine dependence, cigarettes, uncomplicated; F12.90 Cannabis use, unspecified, uncomplicated; E66.9 Obesity, unspecified; Z68.37 Body mass index [BMI] 37.0-37.9, adult; Z91.51 Personal history of suicidal behavior; Z91.52 Personal history of nonsuicidal self-harm; Z79.84 Long term (current) use of oral hypoglycemic drugs; Z79.899 Other long term (current) drug therapy
CPT/HCPCS: 80307; 99283; 99284

== ENCOUNTER 2023-04-01 15:43 | Emergency (ER) | payer MEDICARE, MEDICAID, SELFPAY ==
[2023-04-01 15:44] VITALS: BP 139/47; PULSE 105; RESP 18; TEMP 36.4; O2SAT 95; BMI 37.4
--- NOTE | 2023-04-01 15:57 | PC.NURSE ---
Pt arrived by EMS, stating her voices are telling her to kill herself. Reports that she sees her dad, and he followed them to the ED, stating He is telling me to kill myself before he kills me emotional support provided, cell changer with security, belongings placed in locker.
--- NOTE | 2023-04-01 16:11 | ED.PSYCH ---
HPI - Psych General Chief Complaint: Psychiatric Symptoms Stated Complaint: CRISIS Time Seen by Provider: 04/01/23 15:59 Source: patient and EMS Mode of arrival: EMS Limitations: no limitations History of Present Illness HPI Narrative: Patient comes to the emergency room via ambulance stating that she is seeing her father voice telling the patient to kill herself. Patient has some superficial abrasions/scratches in her forearm. Patient SI states she might go to the pharmacy and take medications to overdose. No HI. Patient was seen here yesterday for the same complaint. Related Data Home Medications Medication Instructions Recorded Confirmed trazodone 150 mg tablet 1 tab PO BEDTIME 09/23/22 04/01/23 benztropine 1 mg tablet 1 mg PO BID 12/19/22 04/01/23 ferrous sulfate 325 mg (65 mg 325 mg PO DAILY 12/19/22 04/01/23 iron) tablet albuterol sulfate 90 mcg/actuation 2 puff inhalation Q4-6H PRN 12/24/22 04/01/23 aerosol inhaler (Ventolin HFA) Shortness Of Breath Or Wheezing chlorpromazine 50 mg tablet 1 tab PO TID PRN Agitation 12/24/22 04/01/23 fluoxetine 40 mg capsule 2 cap PO DAILY 12/24/22 04/01/23 fluphenazine HCl 5 mg tablet 1 tab PO BID 12/24/22 04/01/23 atorvastatin 10 mg tablet 10 mg PO BEDTIME 03/05/23 04/01/23 lactulose 10 gram/15 mL oral 30 ml PO BID PRN Constipation 03/05/23 04/01/23 solution lisinopril 5 mg tablet 5 mg PO DAILY 03/05/23 04/01/23 metformin 500 mg tablet 500 mg PO BIDWM 03/05/23 04/01/23 mirtazapine 15 mg tablet 7.5 mg PO BEDTIME 03/05/23 04/01/23 montelukast 10 mg tablet 10 mg PO BEDTIME 03/05/23 04/01/23 nystatin 100,000 unit/gram topical 1 appl topical BID 03/05/23 04/01/23 powder pantoprazole 40 mg tablet,delayed 40 mg PO DAILY@0630 03/05/23 04/01/23 release sennosides 8.6 mg tablet (senna) 17.2 mg PO BEDTIME PRN constipation 03/05/23 04/01/23 cephalexin 500 mg capsule 500 mg PO QID 03/13/23 04/01/23 Previous Rx's Medication Instructions Recorded prazosin 1 mg capsule 4 mg PO BEDTIME 30 days #120 caps 10/18/21 meclizine 25 mg tablet 25 mg PO DAILY PRN dizziness #6 01/24/23 tabs Allergies Allergy/AdvReac Type Severity Reaction Status Date / Time azithromycin [AZITHROMYCIN] Allergy Severe Rash Verified 04/01/23 15:50 Fish Containing Products Allergy Severe Anaphylaxis Verified 04/01/23 15:50 codeine [Codeine] Allergy Intermediate Rash Verified 04/01/23 15:50 Penicillins Allergy Intermediate Rash Verified 04/01/23 15:50 prednisone [Prednisone] Allergy Intermediate Rash Verified 04/01/23 15:50 Sulfa (Sulfonamide Allergy Intermediate Rash Verified 04/01/23 15:50 Antibiotics) [Sulfa (Sulfonamides)] ziprasidone [From Geodon] Allergy Intermediate dysuria, Verified 04/01/23 15:50 rash Review of Systems Review of Systems: Constitutional : No Weight loss, No Fever, No Chills, No Night Sweats, No Fatigue, No Malaise ENT/Mouth : No Hearing loss, No Ear Pain, No Nasal Congestion, No Sinus Pain, No Hoarseness, No sore throat, No Rhinorrhea, No Swallowing Difficulty Eyes: No Eye Pain, No Swelling, No Redness, No Foreign Body, No Discharge, No Vision Changes Cardiovascular : No Chest Pain, No SOB, No Dyspnea on Exertion, No Orthopnea, No Edema, No Palpitations Respiratory : No Cough, No Sputum, No Wheezing, No Smoke Exposure, No Dyspnea Gastrointestinal : No Nausea, No Vomiting, No Diarrhea, No Constipation, No abdominal Pain, No Hematochezia, No Melena Genitourinary : no irregular bleeding, No Dysuria, No Urinary Frequency, No Hematuria, No Urinary Incontinence, No Urgency, No Flank Pain, No Urinary Flow Changes, No Hesitancy Musculoskeletal : No joint pain, No Myalgias, No Joint Swelling Skin : No Skin Lesions, No rash Neuro : No Weakness, No Numbness, No Paresthesias, No Loss of Consciousness, No Dizziness, No Headache Psych : No Anxiety/Panic, complaining of SI, hallucinations, no HI Heme/Lymph: No Bruising, No Bleeding,No Lymphadenopathy Endocrine : No Polyuria, No Polydipsia, No Temperature Intolerance [facility] Past Medical History Medical History Acetaminophen overdose Borderline personality disorder Bronchitis Depression Diabetes type 2, controlled Full body hives GERD (gastroesophageal reflux disease) History of attempted suicide History of non-suicidal self-harm Hyperlipidemia Hypomagnesemia Major depression MDD (major depressive disorder), recurrent episode, severe Mood disorder Overdose PTSD (post-traumatic stress disorder) Suicide attempt Suicide attempt by acetaminophen overdose Social History Social History 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 Household Members Other:: long-term Housing: Other Housing Other:: long-term Do you presently have visiting nurse or other home services: No Unable to assess alcohol history related to: Unknown Alcohol intake: former Patient Tobacco Use Status: Current everyday Tobacco user Tobacco use type: Cigarette Cigarette Packs Per Day: 1 Cigarettes Per Day: 15 Years Smoked: 22 e-Cigarette/Vaping Use: Never Used Substance Use Type: Marijuana Advance Directives: No Advance Directives Information Provided: No service: No Current occupational status: unemployed and disabled Sexual orientation: Don't Know Physical Exam Vital Signs: Vital Signs: Last Vital Signs Temp 97.6 F 04/01/23 15:44 Pulse 105 H 04/01/23 15:44 Resp 18 04/01/23 15:44 BP 139/47 L 04/01/23 15:44 Pulse Ox 95 04/01/23 15:44 O2 Del Method Room Air 04/01/23 15:44 BMI result Body Mass Index 37.4 Const: Other: Appearance: Alert. Oriented X3. No acute distress. Eyes: Pupils equal, round and reactive to light. ENT: Pharynx normal. Neck: Normal inspection. Neck supple. No lymph nodes noted. No crepitus CVS: Normal heart rate and rhythm. Pulses normal. Normal S1 and S2 Respiratory: No respiratory distress. Breath sounds normal. No Wheezing. No rales Abdomen: Soft and nontender. No rigidity. No distention. Skin: Skin warm and dry. Normal skin color. Normal skin turgor. Superficial bilateral scratches to the forearms Extremities: No lower extremity edema. No Lacerations. No Rash Neuro: Oriented X 3. No motor deficit. No sensory deficit. Moving all extremities. No slurred speech. CN 2 through 12 grossly intact Psych: calm, cooperative, normal affect Course Course Course Narrative: -care team consult pending -physician observation started at 16:14 Medications Administered Discontinued Medications Generic Name Dose Route Start Last Admin Trade Name Freq PRN Reason Stop Dose Admin Al Hydroxide/Mg Hydroxide 30 ml 04/01/23 18:25 04/01/23 18:29 Magnesium Hydrox/Alum Hydrox 30 Ml Oral.Susp PO 04/01/23 18:26 30 ml ONCE ONE Administration Ondansetron HCl 4 mg 04/01/23 18:26 04/01/23 18:29 Ondansetron Odt 4 Mg Tab.Rapdis TRANSLINGU 04/01/23 18:27 4 mg ONCE ONE Administration Medical Decision Making Medical Decision Making MDM Narrative: -patient states that she is no longer suicidal or homicidal, patient no longer hallucinating, requesting to be discharged back to her facility. -safety plan reviewed with the patient, patient states that she has no intention of harming herself and will not do so -I discussed the patient briefly with the care team, they will be able to the former consult today, but they know the patient very well and they agree that patient can be safely be discharged home. Discharge Plan Discharge Clinical Impression: Hallucinations Patient Disposition: Home, Self-Care Instructions: Hallucinations (ED) Additional Instructions: Please follow-up with your primary care physician tomorrow. If you have any worsening or new symptoms, please return to the emergency room or call 911 Prescriptions: No Action ferrous sulfate 325 mg (65 mg iron) Tablet 325 mg PO DAILY benztropine 1 mg Tablet 1 mg PO BID fluoxetine 40 mg capsule 2 cap PO DAILY albuterol sulfate [Ventolin HFA] 90 mcg/actuation HFA aerosol inhaler 2 puff inhalation Q4-6H PRN (Reason: Shortness Of Breath Or Wheezing) fluphenazine HCl 5 mg tablet 1 tab PO BID chlorpromazine 50 mg tablet 1 tab PO TID PRN (Reason: Agitation) prazosin 1 mg Capsule 4 mg PO BEDTIME 30 Days Qty: 120 0RF Protocol: Hold for SBP< HOLD for SBP < : 90 trazodone 150 mg tablet 1 tab PO BEDTIME meclizine 25 mg tablet 25 mg PO DAILY PRN (Reason: dizziness) Qty: 6 0RF metformin 500 mg tablet 500 mg PO BIDWM atorvastatin 10 mg tablet 10 mg PO BEDTIME pantoprazole 40 mg tablet,delayed release (DR/EC) 40 mg PO DAILY@0630 montelukast 10 mg tablet 10 mg PO BEDTIME lisinopril 5 mg tablet 5 mg PO DAILY mirtazapine 15 mg tablet 7.5 mg PO BEDTIME sennosides [senna] 8.6 mg tablet 17.2 mg PO BEDTIME PRN (Reason: constipation) lactulose 10 gram/15 mL solution 30 ml PO BID PRN (Reason: Constipation) nystatin 100,000 unit/gram powder 1 appl topical BID cephalexin 500 mg capsule 500 mg PO QID Interventions: [place]-Suicide Risk Severity Scale Last Done: 04/01/23 15:54
--- NOTE | 2023-04-01 18:21 | PC.NURSE ---
Pt threw up on bedding, stating that it came out of no where and she could not stop it. Pt reporting acid reflux post vomit, aware, no further orders at this time
[2023-04-01] MEDS: Magnesium Hydrox/Alum Hydrox 30 ML ORAL.SUSP PO (18:29)
[2023-04-01] MEDS: Ondansetron ODT 4 MG TAB.RAPDIS TRANSLINGU (18:29)
--- NOTE | 2023-04-01 19:16 | PC.NURSE ---
pt assessed for d/c, denies any SI
== END 2023-04-01 19:18 | disposition home or self-care (01) ==
PROVIDERS: Emergency Provider Emergency Medicine; PCP Nurse Practitioner Family
DX: R44.0 Auditory hallucinations (principal); R45.851 Suicidal ideations; F31.9 Bipolar disorder, unspecified; F60.3 Borderline personality disorder; F41.9 Anxiety disorder, unspecified; F43.10 Post-traumatic stress disorder, unspecified; E11.9 Type 2 diabetes mellitus without complications; E78.5 Hyperlipidemia, unspecified; D64.9 Anemia, unspecified; F17.210 Nicotine dependence, cigarettes, uncomplicated; F12.90 Cannabis use, unspecified, uncomplicated; E66.9 Obesity, unspecified; Z68.37 Body mass index [BMI] 37.0-37.9, adult; Z91.51 Personal history of suicidal behavior; Z91.52 Personal history of nonsuicidal self-harm; Z79.84 Long term (current) use of oral hypoglycemic drugs; Z79.899 Other long term (current) drug therapy
CPT/HCPCS: 99285

== ENCOUNTER 2023-04-06 19:10 | Emergency (ER) | payer MEDICARE, MEDICAID, SELFPAY ==
--- NOTE | ~2023-04-06 | CT_ITS ---
EXAMINATION: CT HEAD WITHOUT CONTRAST CLINICAL INFORMATION: Fall. Head strike. COMPARISON: CT head 02/04/2022 TECHNIQUE: Contiguous axial imaging was performed from the skull base to vertex without intravenous administration of contrast. Coronal and sagittal reformatted images are performed at the CT scanner. [This CT examination was performed using dose optimization techniques as appropriate, variously including the following: *Automated exposure control *Adjustment of mA and/or kV according to patient size (this includes techniques or standardized protocols for targeted exams where dose is matched to indication/reason for exam; i.e. extremities or head) *Use of iterative reconstruction technique] DLP: 533 mGy-cm. FINDINGS: There is no evidence of acute intracranial hemorrhage or territorial infarction. No abnormal mass-effect or midline shift is seen. [place] to white matter differentiation is well preserved. No extra-axial fluid collections are identified. The ventricles are normal in size. There is no abnormal attenuation within the brain parenchyma. There is no osseous abnormality. The mastoid air cells and visualized portions of the paranasal sinuses are well-aerated. CT/CT head/brain wo IV con IMPRESSION: No acute intracranial pathology.
[2023-04-06 19:14] VITALS: BP 142/89; PULSE 115; RESP 20; TEMP 36.6; O2SAT 97; BMI 36.8
[2023-04-06 19:19] VITALS: BP 142/89; PULSE 115; RESP 20; TEMP 36.6; O2SAT 97
--- NOTE | 2023-04-06 19:31 | PC.NURSE ---
pt arrived via EMS, [facility]- [facility] auditory hallucinations pt states hearing her father () telling her to kill herself voices are stronger than they ever have been pt states falling at around 0400 today [place] and striking her head, admitting to headache as a result of the fall pt denies acting on what voices have instructed her to do tearful at time of arrival
[2023-04-06 19:47] LABS: Appearance Urine Clear; Color Urine Yellow; Glucose Urine UA Negative (Negative); Leukocyte Esterase Urine Negative (Negative); Nitrite Urine Negative (Negative); PH 5.5 (5.0-9.0); Specific Gravity - Urine <= 1.005 (1.005-1.025); Urine Blood Negative (Negative); Urine Ketones Negative (Negative); Urine Protein Negative (Neg-Trace)
--- NOTE | 2023-04-06 19:50 | PC.NURSE ---
SI w/ a plan pt wants to self harm by cutting her arms scars on both arms from self harm in the past, no new evidence of self harm observed
[2023-04-06 19:55] LABS: Amphetamine Screen Urine Not Detected (Not Detect); Barbiturates, Urine Not Detected (Not Detect); Benzodiazepines Screen Urine Not Detected (Not Detect); Cannabinoid Screen Urine Not Detected (Not Detect); Cocaine Screen Urine Not Detected (Not Detect); Fentanyl, urine POSITIVE (Not Detect); Opiate Screen Urine Not Detected (Not Detect); Phencyclidine Screen Urine Not Detected (Not Detect)
[2023-04-06 20:00] LABS: COVID-19 Test Negative (Negative); IDNOW Serial# 08D9AD1C
[2023-04-06 20:11] LABS: MANUAL DIFF FLAG NO
[2023-04-06 20:18] LABS: Basophils Absolute Auto 0.1 X10*3/uL (0.0-0.2); Basophils Percent Auto 0.7 % (0-2); Eosinophils Absolute Auto 0.4 X10*3/uL (0.0-0.4); Eosinophils Percent Auto 4.7 % (0-4); Hematocrit 34.9 % (37.0-47.0); Imm Gran Abs Auto 0.03 X10*3/uL (0.00-0.03); Imm Gran Pct Auto 0.4 % (0.0-0.4); Lymphocytes Absolute Auto 1.8 X10*3/uL (1.2-4.9); Lymphocytes Percent Auto 24.7 % (20-40); Mean Corpuscular HGB Conc 31.5 g/dl (31.0-35.0); Mean Corpuscular Hemoglobin 27.8 pg (27.0-33.0); Mean Corpuscular Volume 88.4 fL (80.0-98.0); Mean Platelet Volume 9.8 fL (9.4-12.3); Monocytes Absolute Auto 0.6 X10*3/uL (0.1-1.2); Monocytes Percent Auto 8.1 % (2-11); Neutrophils Absolute Auto 4.6 x10*3/uL (2.0-8.3); Neutrophils Percent Auto 61.4 % (45-73); Platelet Count 290 X10*3/uL (160-400); Red Blood Count 3.95 X10*6/uL (4.20-5.50); White Blood Count 7.4 X10*3/uL (4.8-10.8)
--- NOTE | 2023-04-06 20:19 | PC.NURSE ---
provider, TIMI Bentley with pt to discuss pos fentanyl result pt admits to 'smoking pot' from an unreputable source
[2023-04-06 20:33] LABS: Alanine Aminotransferase 13 U/L (0-31); Albumin Level 4.2 g/dL (3.5-5.0); Alkaline Phosphatase 107 U/L (39-117); Anion Gap 15 (12-20); Aspartate Amino Transferase 16 U/L (5-31); Bilirubin Total 0.3 mg/dL (0.0-1.0); Blood Urea Nitrogen 8 mg/dL (9-16); Carbon Dioxide 22 mmol/L (22-29); Chloride 104 mmol/L (96-108); Creatinine Clr Calc Pharmacy 108.2; Estimated Glomerular Filt Rate > 60; Glucose Random 138 mg/dL (60-115); Magnesium 1.7 mg/dL (1.6-2.6); Potassium 3.5 mmol/L (3.3-5.1); Sodium 137 mmol/L (135-145); Total Protein 7.1 g/dL (6.5-8.0)
--- NOTE | 2023-04-06 20:39 | ED.GENADULT ---
HPI - General Adult General Chief complaint: Psychiatric Symptoms Stated complaint: CRISIS Time Seen by Provider: 04/06/23 20:54 Source: patient Mode of arrival: ambulatory Limitations: no limitations History of Present Illness HPI narrative: 47-year-old female history of bipolar two with melacholic features, depression, PTSD, diabetes, GERD, suicide attempts presenting to the emergency department with suicidal ideation and and command hallucinations tells me this terrible anxiety is overtaking her body. She reports increasing life stressors, she tells me she feels very depressed and suicidal at this time.? She reports visual and auditory hallucinations, tells me she is seeing her father pointing a gun at her. Denies tactile hallucinations.? Denies drugs, alcohol and tobacco.? No medical complaints. Related Data Home Medications Medication Instructions Recorded Confirmed trazodone 150 mg tablet 1 tab PO BEDTIME 09/23/22 04/01/23 benztropine 1 mg tablet 1 mg PO BID 12/19/22 04/01/23 ferrous sulfate 325 mg (65 mg 325 mg PO DAILY 12/19/22 04/01/23 iron) tablet albuterol sulfate 90 mcg/actuation 2 puff inhalation Q4-6H PRN 12/24/22 04/01/23 aerosol inhaler (Ventolin HFA) Shortness Of Breath Or Wheezing chlorpromazine 50 mg tablet 1 tab PO TID PRN Agitation 12/24/22 04/01/23 fluoxetine 40 mg capsule 2 cap PO DAILY 12/24/22 04/01/23 fluphenazine HCl 5 mg tablet 1 tab PO BID 12/24/22 04/01/23 atorvastatin 10 mg tablet 10 mg PO BEDTIME 03/05/23 04/01/23 lactulose 10 gram/15 mL oral 30 ml PO BID PRN Constipation 03/05/23 04/01/23 solution lisinopril 5 mg tablet 5 mg PO DAILY 03/05/23 04/01/23 metformin 500 mg tablet 500 mg PO BIDWM 03/05/23 04/01/23 mirtazapine 15 mg tablet 7.5 mg PO BEDTIME 03/05/23 04/01/23 montelukast 10 mg tablet 10 mg PO BEDTIME 03/05/23 04/01/23 nystatin 100,000 unit/gram topical 1 appl topical BID 03/05/23 04/01/23 powder pantoprazole 40 mg tablet,delayed 40 mg PO DAILY@0630 03/05/23 04/01/23 release sennosides 8.6 mg tablet (senna) 17.2 mg PO BEDTIME PRN constipation 03/05/23 04/01/23 cephalexin 500 mg capsule 500 mg PO QID 03/13/23 04/01/23 Previous Rx's Medication Instructions Recorded prazosin 1 mg capsule 4 mg PO BEDTIME 30 days #120 caps 10/18/21 meclizine 25 mg tablet 25 mg PO DAILY PRN dizziness #6 01/24/23 tabs Allergies Allergy/AdvReac Type Severity Reaction Status Date / Time azithromycin [AZITHROMYCIN] Allergy Severe Rash Verified 04/01/23 15:50 Fish Containing Products Allergy Severe Anaphylaxis Verified 04/01/23 15:50 codeine [Codeine] Allergy Intermediate Rash Verified 04/01/23 15:50 Penicillins Allergy Intermediate Rash Verified 04/01/23 15:50 prednisone [Prednisone] Allergy Intermediate Rash Verified 04/01/23 15:50 Sulfa (Sulfonamide Allergy Intermediate Rash Verified 04/01/23 15:50 Antibiotics) [Sulfa (Sulfonamides)] ziprasidone [From Geodon] Allergy Intermediate dysuria, Verified 04/01/23 15:50 rash Review of Systems Review of Systems: Constitutional : No Weight loss, No Fever, No Chills, No Fatigue, No Malaise ENT/Mouth : No sore throat, No Rhinorrhea Eyes: No Eye Pain, No Swelling, No Redness Cardiovascular : No Chest Pain, No SOB, No Dyspnea on Exertion, No Orthopnea, No Edema, No Palpitations Respiratory : No Cough, No Sputum, No Wheezing Gastrointestinal : No Nausea, No Vomiting, No Diarrhea, No Constipation, No abdominal Pain, No Hematochezia, No Melena Genitourinary : No Dysuria, No Urinary Frequency, No Hematuria, Musculoskeletal : No joint pain, No Myalgias, No Joint Swelling Skin : No Skin Lesions, No rash Neuro : No Weakness, No Numbness, No Dizziness, No Headache Psych : + Anxiety/Panic, + Depression, + SI Yes all other systems are reviewed and are negative [facility] Past Medical History Attestation statement: The following information was validated with the patient. 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 Household Members Other:: prison Housing: Other Housing Other:: prison Do you presently have visiting nurse or other home services: No Unable to assess alcohol history related to: Unknown Alcohol intake: never Patient Tobacco Use Status: Current everyday Tobacco user Tobacco use type: Cigarette Cigarette Packs Per Day: 1 Cigarettes Per Day: 15 Years Smoked: 22 Smoked in Last 30 Days: Yes e-Cigarette/Vaping Use: Never Used Use of substances other than those prescribed or required for medical reasons: Yes Substance Use Type: Marijuana Substance Use Frequency Other:: once today Last Used Substance: Hours (ago) Advance Directives: No Advance Directives Information Provided: No Patient : No service: No Current occupational status: unemployed and disabled Sexual orientation: Don't Know Physical Exam ED Vital Signs: Vital Signs - 24 hr 04/06/23 19:14 04/06/23 19:19 Temperature 97.9 F 97.9 F Pulse Rate 115 H 115 H Respiratory Rate 20 20 Blood Pressure 142/89 H 142/89 H Pulse Oximetry 97 97 Oxygen Delivery Method Room Air Room Air BMI result Body Mass Index 36.8 vss Appearance: Alert.? Oriented X3.? No acute distress.? Head:? Normocephalic, atraumatic, no step-offs or deformities Eyes: Pupils equal, round and reactive to light.? Neck: Normal inspection.? Neck supple.? CVS: Normal heart rate and rhythm.? Pulses normal.? Respiratory: No respiratory distress.? Breath sounds normal.? Abdomen: Soft and nontender.? Skin: Skin warm and dry.? Normal skin color.? Normal skin turgor.?Old self-inflicted superficial wounds to? bilateral forearms, anterior thighs bilaterally, stomach Extremities: No lower extremity edema.? No calf ttp.? 5/5 strength to bilateral upper and lower extremities Neuro: Oriented X 3.? No motor deficit.? No sensory deficit. CN 2-12 intact. Normal [id number], [id number], steady tandem gait normal coordination Course Reevaluation(s) Reevaluation #1: CBC appears to be around patient's baseline. Chemistry unremarkable. Urine clean. COVID negative. Time: 20:52 Reevaluation #2: Salicylates, acetaminophen negative. Patient's fentanyl positive this could be medication induced At this time patient be placed in observation to allow more time to be evaluated by the behavioral health team. At time observation was started patient common cooperative no acute distress. Will continue to monitor Time: 20:53 Reevaluation #3: I had scan was ordered because patient reported that she fell and hit her head while camping, no loss of consciousness reporting a headache. NIH stroke scale 0. Neuro intact. Cerebellar intact. Medical Decision Making Medical Decision Making [facility] Narrative: 47 year-old female presenting with anxiety, depression, visual and auditory hallucinations , suicidal ideation, superficial wounds . Physical examination w/ ? Superficial scar wounds to bilateral forearms,? anterior thigh use, abdomen Likley MDD vs borderline personality do vs anxiety.? Unlikely metabolic causes. Plan- medical clearance and evaluation by care team Differential Diagnosis Differential Diagnoses: The differential diagnosis associated with the presentation includes Lik[place] MDD vs borderline personality do vs anxiety.? Unlikely metabolic causes. Admission/Observation Consideration of admission/observation: Escalation of care including admission/observation considered unlikely Lab Data [facility] Lab Attestation statement: I reviewed the patient's lab results. 04/06/23 20:05 04/06/23 20:05 Labs: Lab Results 04/06/23 04/06/23 04/06/23 Range/Units 19:39 19:39 19:39 WBC (4.8-10.8) X10*3/uL RBC (4.20-5.50) X10*6/uL Hgb (12.0-16.0) g/dl Hct (37.0-47.0) % MCV (80.0-98.0) fL MCH (27.0-33.0) pg MCHC (31.0-35.0) g/dl RDW (11.0-16.0) % Plt Count (160-400) X10*3/uL MPV (9.4-12.3) fL Immature Gran % (Auto) (0.0-0.4) % Neut % (Auto) (45-73) % Lymph % (Auto) (20-40) % [place] % (Auto) (2-11) % Eos % (Auto) (0-4) % Baso % (Auto) (0-2) % Lymph # (Auto) (1.2-4.9) X10*3/uL [place] # (Auto) (0.1-1.2) X10*3/uL Eos # (Auto) (0.0-0.4) X10*3/uL Baso # (Auto) (0.0-0.2) X10*3/uL Abs Immat Gran (auto) (0.00-0.03) X10*3/uL Absolute Neuts (auto) (2.0-8.3) x10*3/uL Absolute Nucleated RBC (0.0-0.012) X10*3/uL Nucleated RBC % (auto) (0.0-0.2) /100WBC Sodium (135-145) mmol/L Potassium (3.3-5.1) mmol/L Chloride (96-108) mmol/L Carbon Dioxide (22-29) mmol/L Anion Gap (12-20) BUN (9-16) mg/dL Creatinine (0.5-1.4) mg/dL Estim Creat Clear Calc Estimated GFR Random Glucose (60-115) mg/dL Calcium (8.4-10.2) mg/dL Magnesium (1.6-2.6) mg/dL Total Bilirubin (0.0-1.0) mg/dL AST (5-31) U/L ALT (0-31) U/L Alkaline Phosphatase (39-117) U/L Total Protein (6.5-8.0) g/dL Albumin (3.5-5.0) g/dL Urine Color Yellow Urine Appearance Clear Urine pH 5.5 (5.0-9.0) Ur Specific [place] <= 1.005 (1.005-1.025) Urine Protein Negative (Neg-Trace) mg/dL Urine Glucose (UA) Negative (Negative) mg/dL Urine Ketones Negative (Negative) mg/dL Urine Blood Negative (Negative) Urine Nitrite Negative (Negative) Ur Leukocyte Esterase Negative (Negative) Salicylates (15-30) mg/dL Urine Opiates Screen Not Detected (Not Detect) Urine Fentanyl Screen POSITIVE H (Not Detect) Acetaminophen (<30) mcg/mL Ur Barbiturates Screen Not Detected (Not Detect) Ur Phencyclidine Scrn Not Detected (Not Detect) Ur Amphetamines Screen Not Detected (Not Detect) U Benzodiazepines Scrn Not Detected (Not Detect) Urine Cocaine Screen Not Detected (Not Detect) U Marijuana (THC) Screen Not Detected (Not Detect) COVID-19 (NICK) Negative (Negative) COVID-19 Clin Com See Note 04/06/23 04/06/23 04/06/23 Range/Units 20:05 20:05 20:05 WBC 7.4 (4.8-10.8) X10*3/uL RBC 3.95 L (4.20-5.50) X10*6/uL Hgb 11.0 L (12.0-16.0) g/dl Hct 34.9 L (37.0-47.0) % MCV 88.4 (80.0-98.0) fL MCH 27.8 (27.0-33.0) pg MCHC 31.5 (31.0-35.0) g/dl RDW 14.0 (11.0-16.0) % Plt Count 290 (160-400) X10*3/uL MPV 9.8 (9.4-12.3) fL Immature Gran % (Auto) 0.4 (0.0-0.4) % Neut % (Auto) 61.4 (45-73) % Lymph % (Auto) 24.7 (20-40) % [place] % (Auto) 8.1 (2-11) % Eos % (Auto) 4.7 H (0-4) % Baso % (Auto) 0.7 (0-2) % Lymph # (Auto) 1.8 (1.2-4.9) X10*3/uL [place] # (Auto) 0.6 (0.1-1.2) X10*3/uL Eos # (Auto) 0.4 (0.0-0.4) X10*3/uL Baso # (Auto) 0.1 (0.0-0.2) X10*3/uL Abs Immat Gran (auto) 0.03 (0.00-0.03) X10*3/uL Absolute Neuts (auto) 4.6 (2.0-8.3) x10*3/uL Absolute Nucleated RBC 0.000 (0.0-0.012) X10*3/uL Nucleated RBC % (auto) 0.0 (0.0-0.2) /100WBC Sodium 137 (135-145) mmol/L Potassium 3.5 (3.3-5.1) mmol/L Chloride 104 (96-108) mmol/L Carbon Dioxide 22 (22-29) mmol/L Anion Gap 15 (12-20) BUN 8 L (9-16) mg/dL Creatinine 0.75 (0.5-1.4) mg/dL Estim Creat Clear Calc 108.2 Estimated GFR > 60 Random Glucose 138 H (60-115) mg/dL Calcium 9.0 (8.4-10.2) mg/dL Magnesium 1.7 (1.6-2.6) mg/dL Total Bilirubin 0.3 (0.0-1.0) mg/dL AST 16 (5-31) U/L ALT 13 (0-31) U/L Alkaline Phosphatase 107 (39-117) U/L Total Protein 7.1 (6.5-8.0) g/dL Albumin 4.2 (3.5-5.0) g/dL Urine Color Urine Appearance Urine pH (5.0-9.0) Ur Specific [place] (1.005-1.025) Urine Protein (Neg-Trace) mg/dL Urine Glucose (UA) (Negative) mg/dL Urine Ketones (Negative) mg/dL Urine Blood (Negative) Urine Nitrite (Negative) Ur Leukocyte Esterase (Negative) Salicylates < 5.0 L (15-30) mg/dL Urine Opiates Screen (Not Detect) Urine Fentanyl Screen (Not Detect) Acetaminophen < 17 (<30) mcg/mL Ur Barbiturates Screen (Not Detect) Ur Phencyclidine Scrn (Not Detect) Ur Amphetamines Screen (Not Detect) U Benzodiazepines Scrn (Not Detect) Urine Cocaine Screen (Not Detect) U Marijuana (THC) Screen (Not Detect) COVID-19 (NICK) (Negative) COVID-19 Clin Com Core Measures AMI core measures followed: Yes Measure exclusions: not indicated Critical Care Time Critical Care Time Critical Care Time: No Discharge Plan Discharge Clinical Impression: Acute anxiety, Depression Patient Disposition: Still a Patient Prescriptions: No Action ferrous sulfate 325 mg (65 mg iron) Tablet 325 mg PO DAILY benztropine 1 mg Tablet 1 mg PO BID fluoxetine 40 mg capsule 2 cap PO DAILY albuterol sulfate [Ventolin HFA] 90 mcg/actuation HFA aerosol inhaler 2 puff inhalation Q4-6H PRN (Reason: Shortness Of Breath Or Wheezing) fluphenazine HCl 5 mg tablet 1 tab PO BID chlorpromazine 50 mg tablet 1 tab PO TID PRN (Reason: Agitation) prazosin 1 mg Capsule 4 mg PO BEDTIME 30 Days Qty: 120 0RF Protocol: Hold for SBP< HOLD for SBP < : 90 trazodone 150 mg tablet 1 tab PO BEDTIME meclizine 25 mg tablet 25 mg PO DAILY PRN (Reason: dizziness) Qty: 6 0RF metformin 500 mg tablet 500 mg PO BIDWM atorvastatin 10 mg tablet 10 mg PO BEDTIME pantoprazole 40 mg tablet,delayed release (DR/EC) 40 mg PO DAILY@0630 montelukast 10 mg tablet 10 mg PO BEDTIME lisinopril 5 mg tablet 5 mg PO DAILY mirtazapine 15 mg tablet 7.5 mg PO BEDTIME sennosides [senna] 8.6 mg tablet 17.2 mg PO BEDTIME PRN (Reason: constipation) lactulose 10 gram/15 mL solution 30 ml PO BID PRN (Reason: Constipation) nystatin 100,000 unit/gram powder 1 appl topical BID cephalexin 500 mg capsule 500 mg PO QID Interventions: [place]-Suicide Risk Severity Scale Last Done: 04/06/23 19:19
[2023-04-06 20:48] LABS: Acetaminophen LAB < 17 mcg/mL (<30); Salicylate < 5.0 mg/dL (15-30)
[2023-04-06] MEDS: LORazepam 1 MG TABLET 2 MG PO (21:16)
--- NOTE | 2023-04-06 21:16 | PC.NURSE ---
administered 2 mg ativan PO per MAR for anxiety
--- NOTE | 2023-04-06 21:26 | PC.NURSE ---
resting quietly while watching tv able to make needs known no apparent distress
[2023-04-06 21:39] LABS: Ethanol < 10 mg/dL
--- NOTE | 2023-04-06 22:23 | PC.NURSE ---
pt sleeping no apparent distress respirations even and unlabored
--- NOTE | 2023-04-07 00:01 | PC.NURSE ---
pt sleeping respirations even and unlabored no apparent distress
--- NOTE | 2023-04-07 00:19 | PC.NURSE ---
plan: re-eval in morning pt sectioned (12) by care team
--- NOTE | 2023-04-07 00:24 | PC.NURSE ---
med rec completed
--- NOTE | 2023-04-07 01:58 | PC.NURSE ---
sleeping respirations even and unlabored no apparent distress
--- NOTE | 2023-04-07 03:07 | PC.NURSE ---
sleeping respirations even and unlabored no apparent distress
--- NOTE | 2023-04-07 04:39 | PC.NURSE ---
per verbal order from Dr Eagle, diabetic diet 2000/kcal entered
[2023-04-07 05:55] VITALS: BP 135/72; PULSE 75; RESP 17; TEMP 36.5
--- NOTE | 2023-04-07 06:38 | PC.NURSE ---
pt sleeping no apparent distress respirations even and unlabored
--- NOTE | 2023-04-07 07:10 | PC.NURSE ---
N2N report given to WALKER Sommer and WALKER Davis
--- NOTE | 2023-04-07 08:00 | PC.NURSE ---
Patient observed resting with eyes closed. Will administer 0630 medication when patient is awake.
[2023-04-07 08:33] VITALS: BP 148/91; PULSE 84; RESP 15; TEMP 36.4; O2SAT 95
[2023-04-07] MEDS: Omeprazole 20 MG CAPSULE.DR PO (08:37)
[2023-04-07] MEDS: lisinopriL 5 MG TABLET PO (10:04)
[2023-04-07] MEDS: metFORMIN HCl 500 MG TABLET PO (10:05)
--- NOTE | 2023-04-07 10:18 | MHC.CARE ---
CARE Team contacted pt's Detention and advised them that pt will be returning home.
== END 2023-04-07 10:17 | disposition home or self-care (01) ==
PROVIDERS: Physician Assistant; Emergency Provider Internal Medicine
DX: F33.1 Major depressive disorder, recurrent, moderate (principal); F41.1 Generalized anxiety disorder; F43.0 Acute stress reaction; R51.9 Headache, unspecified; Z20.822 Contact with and (suspected) exposure to COVID-19; Z20.828 Contact with and (suspected) exposure to other viral communicable diseases; Z79.899 Other long term (current) drug therapy
CPT/HCPCS: 36415; 70450; 80053; 80143; 80179; 80307; 81003; 83735; 85025; 87635; 99285

== ENCOUNTER 2023-04-08 14:24 | Emergency (ER) | payer MEDICARE, MEDICAID, SELFPAY ==
[2023-04-08 14:36] VITALS: BP 124/74; BP 140/81; PULSE 90; PULSE 91; RESP 18; TEMP 36.3; O2SAT 95; O2SAT 98; BMI 37.4
--- NOTE | 2023-04-08 15:00 | ED_ITS ---
HPI - General Adult General Chief complaint: Psychiatric Symptoms Stated complaint: CRISIS Time Seen by Provider: 04/08/23 15:00 Source: patient and EMS Mode of arrival: EMS Limitations: no limitations History of Present Illness HPI narrative: Patient is a 47 year old assigned female at with a history of PTSD and anxiety presenting to the emergency department today with increased audtiory hallucinations. Patient states that she is currently hearing an increase in the normal voices she hears. Patient denies any dizziness, lightheadedness, abdominal pain, nausea, vomiting, fever, chills, blurry vision, double vision, loss of vision, chest pain, difficulty breathing, shortness of breath, back pain, night sweats, pain with urination, increased urinary frequency, increased urinary urgency, blood in her urine or stool, syncope or a near syncopal episode, recent trauma or falls, bowel incontinence, bladder incontinence, bowel retention, bladder retention, or any other complaints at this time. Severity: mild Relieving factors: none Exacerbating factors: none Associated symptoms: denies other symptoms Treatments prior to arrival: none Related Data Home Medications Medication Instructions Recorded Confirmed cephalexin 500 mg capsule 500 mg PO QID 04/07/23 04/07/23 lisinopril 5 mg tablet 5 mg PO DAILY 04/07/23 04/07/23 metformin 500 mg tablet 500 mg PO BID 04/07/23 04/07/23 mirtazapine 15 mg tablet 7.5 mg PO DAILY 04/07/23 04/07/23 montelukast 10 mg tablet 10 mg PO DAILY 04/07/23 04/07/23 nitrofurantoin 1 cap PO BID 04/07/23 04/07/23 monohydrate/macrocrystals 100 mg capsule pantoprazole 40 mg tablet,delayed 40 mg PO DAILY 04/07/23 04/07/23 release Allergies Allergy/AdvReac Type Severity Reaction Status Date / Time azithromycin [AZITHROMYCIN] Allergy Severe Rash Verified 04/06/23 23:57 Fish Containing Products Allergy Severe Anaphylaxis Verified 04/06/23 23:57 codeine [Codeine] Allergy Intermediate Rash Verified 04/06/23 23:57 Penicillins Allergy Intermediate Rash Verified 04/06/23 23:57 prednisone [Prednisone] Allergy Intermediate Rash Verified 04/06/23 23:57 Sulfa (Sulfonamide Allergy Intermediate Rash Verified 04/06/23 23:57 Antibiotics) [Sulfa (Sulfonamides)] ziprasidone [From Geodon] Allergy Intermediate dysuria, Verified 04/06/23 23:57 rash Review of Systems Constitutional: Constitutional: Reports no additional constitutional complaints, Denies chills, Denies fever(s) and Denies night sweats Eyes: Eyes: Reports no additional eye complaints, Denies blurry vision, Denies change in vision, Denies diplopia, Denies eye discharge, Denies loss of vision and Denies eye pain ENT: Denies dizziness Cardiovascular: Cardiovascular: Reports no additional cardiovascular c omplaints, Denies chest pain, Denies lightheadedness, Denies Loss of Consciousness and Denies dyspnea Respiratory: Respiratory: Reports no additional respiratory complaints and Denies dyspnea Gastrointestinal: Gastrointestinal: Reports no additional gastrointestinal complaints, Denies abdominal pain, Denies melena, Denies hematochezia, Denies change in bowel habits and Denies change in stool character Genitourinary: Genitourinary: Denies hematuria, Denies urinary frequency, Denies dysuria, Denies urinary incontinence, Denies urinary hesitancy and Denies urinary urgency Musculoskeletal: Musculoskeletal: Reports no additional musculoskeletal complaints, Denies numbness and Denies tingling Neurologic: Denies dizziness, Denies loss of vision, Denies numbness and Denies tingling Psychiatric: Psychiatric: Reports no additional psychiatric complaints and Reports auditory hallucinations Endocrine: Endocrine: Reports no additional endocrine complaints Hematologic/Lymphatic: Hematologic/Lymphatic: Reports no additional hematologic/lymphatic complaints Allergic/Immunologic: Allergic/Immunologic: Reports no additional allergic/immunologic complaints [facility] Past Medical History Attestation statement: The following information was validated with the patient. 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 Household Members Other:: correction Housing: Other Housing Other:: correction Do you presently have visiting nurse or other home services: No Unable to assess alcohol history related to: Unknown Alcohol intake: never Patient Tobacco Use Status: Current everyday Tobacco user Tobacco use type: Cigarette Cigarette Packs Per Day: 1 Cigarettes Per Day: 15 Years Smoked: 22 e-Cigarette/Vaping Use: Never Used Substance Use Type: Marijuana Advance Directives: No Advance Directives Information Provided: No service: No Current occupational status: unemployed and disabled Sexual orientation: Don't Know Physical Exam ED Vital Signs: Vital Signs - 24 hr 04/08/23 14:36 Temperature 97.3 F Pulse Rate 90 Respiratory Rate 18 Blood Pressure 140/81 H Pulse Oximetry 95 Oxygen Delivery Method Room Air BMI result Body Mass Index 37.4 Const General: cooperative, no acute distress, alert and awake Nutritional Appearance: well nourished Orientation/consciousness: patient oriented x3 Limitations: no limitations HENMT Head: Yes normal to inspection and Yes atraumatic Ears: hearing grossly normal bilaterally and external ears normal General nose exam: Normal external nose present, no nasal discharge noted and no epistaxis Face and sinus: Yes normal facial exam, No abrasion and No laceration Mouth: Normal oral and palatal mucosa present, no drooling and no muffled voice Eyes General: appearance normal, both eyes and all related structures Periorbital: periorbital findings normal Eyelids: Yes eyelids normal Conjunctivae: conjunctivae normal Pupils: Equal, round and reactive pupils present EOM: EOMs intact bilaterally Neck Neck: Yes normal visual inspection, Yes full ROM and Yes no lymphadenopathy Chest Chest palpation & inspection: normal inspection of the chest Resp Effort & Inspection: normal respiratory effort and able to speak in complete sentences GI Inspection: Yes normal to inspection Neuro General: patient oriented x3 and moves all extremities Cranial nerves: Yes Equal, round and reactive pupils present Cognition (Neuro): normal cognition Motor exam (neuro): 5/5 motor strength present throughout Sensory Exam: Normal double simultaneous stimulation for sensation Coordination: [id number] test normal Extrem General: Yes normal to inspection, Yes full ROM and Yes capillary refill normal Psych Appearance: grossly normal Mental Status: mental status grossly normal Affect: normal affect Attitude: cooperative Thought process: Normal thought process present Thought content: Normal thought content present Insight: Good insight present (Psych) Medical Decision Making Medical Decision Making MDM Narrative: Patient is a 47 year old assigned female at with a history of PTSD and anxiety presenting to the emergency department today with increased auditory hallucinations. Patient's physical exam was unremarkable. Patient's urine showed no acute process. I explained my physical exam findings as well as all test results to the patient. I answered all questions asked by the patient. Patient is awaiting CARE team evaluation. Differential Diagnosis Differential Diagnoses: The differential diagnosis associated with the presentation includes auditory hallucinations Admission/Observation Consideration of admission/observation: Escalation of care including admission/observation considered CARE team will determine if patient needs admission or not. Lab Data MDM Lab Attestation statement: I reviewed the patient's lab results. My interpretation of these studies and their corresponding values is that they are grossly normal. Labs: Lab Results 04/08/23 04/08/23 Range/Units 14:56 14:56 Urine Color Yellow Urine Appearance Clear Urine pH 6.5 (5.0-9.0) Ur Specific [place] 1.010 (1.005-1.025) Urine Protein Negative (Neg-Trace) mg/dL Urine Glucose (UA) Negative (Negative) mg/dL Urine Ketones Negative (Negative) mg/dL Urine Blood Negative (Negative) Urine Nitrite Negative (Negative) Ur Leukocyte Esterase Negative (Negative) Urine Opiates Screen Not Detected (Not Detect) Urine Fentanyl Screen Not Detected (Not Detect) Ur Barbiturates Screen Not Detected (Not Detect) Ur Phencyclidine Scrn Not Detected (Not Detect) Ur Amphetamines Screen Not Detected (Not Detect) U Benzodiazepines Scrn Not Detected (Not Detect) Urine Cocaine Screen Not Detected (Not Detect) U Marijuana (THC) Screen Not Detected (Not Detect) Independent Historian Clinical information obtained from an independent historian. History obtained from or confirmed by: EMS (EMS provided additional history and confirmed the history provided by the patient) Discharge Plan Discharge Clinical Impression: Auditory hallucination Patient Disposition: Still a Patient Prescriptions: No Action metformin 500 mg tablet 500 mg PO BID cephalexin 500 mg capsule 500 mg PO QID pantoprazole 40 mg tablet,delayed release (DR/EC) 40 mg PO DAILY montelukast 10 mg tablet 10 mg PO DAILY lisinopril 5 mg tablet 5 mg PO DAILY mirtazapine 15 mg tablet 7.5 mg PO DAILY nitrofurantoin monohyd/m-cryst 100 mg capsule 1 cap PO BID Interventions: [place]-Suicide Risk Severity Scale Last Done: 04/08/23 14:52
[2023-04-08 15:08] LABS: Appearance Urine Clear; Color Urine Yellow; Glucose Urine UA Negative (Negative); Leukocyte Esterase Urine Negative (Negative); Nitrite Urine Negative (Negative); PH 6.5 (5.0-9.0); Urine Blood Negative (Negative); Urine Ketones Negative (Negative); Urine Protein Negative (Neg-Trace)
--- NOTE | 2023-04-08 15:10 | PC.NURSE ---
Patient wrote a long note about how she's feeling. She does not feel safe to go home feels suicidal. will try to strangle herself.
[2023-04-08 15:19] LABS: Amphetamine Screen Urine Not Detected (Not Detect); Barbiturates, Urine Not Detected (Not Detect); Benzodiazepines Screen Urine Not Detected (Not Detect); Cannabinoid Screen Urine Not Detected (Not Detect); Cocaine Screen Urine Not Detected (Not Detect); Fentanyl, urine Not Detected (Not Detect); Opiate Screen Urine Not Detected (Not Detect); Phencyclidine Screen Urine Not Detected (Not Detect)
== END 2023-04-08 18:31 | disposition home or self-care (01) ==
PROVIDERS: Emergency Provider Emergency Medicine; PCP Nurse Practitioner Family
DX: R44.0 Auditory hallucinations (principal); F17.210 Nicotine dependence, cigarettes, uncomplicated; Z71.6 Tobacco abuse counseling; Z79.899 Other long term (current) drug therapy
CPT/HCPCS: 80307; 81003; 99284

== ENCOUNTER 2023-04-12 17:29 | Emergency (ER) | payer MEDICARE, MEDICAID, SELFPAY ==
--- NOTE | 2023-04-12 17:50 | ED.SKABFB ---
HPI - Skin/Abscess/Foreign Bdy General Chief complaint: General Medical Stated complaint: pt has a rash underneath stomach, per ems Time Seen by Provider: 04/12/23 17:35 Source: patient Mode of arrival: EMS Limitations: no limitations History of Present Illness HPI narrative: Patient is a 47-year-old female who presents to the emergency department via EMS for evaluation of rash beneath her abdominal fold. Onset was 1-2 weeks ago. She was prescribed nystatin powder initially which did not alleviate the rash, today she began using nystatin cream without significant improvement. She reports the rash to be painful. Denies fevers, chills, additional areas of rash or lesions. Related Data Home Medications Medication Instructions Recorded Confirmed lisinopril 5 mg tablet 5 mg PO DAILY 04/12/23 04/12/23 lurasidone 20 mg tablet (Latuda) 20 mg PO DAILY 04/12/23 04/12/23 metformin 500 mg tablet 500 mg PO BID 04/12/23 04/12/23 mirtazapine 15 mg tablet 7.5 mg PO DAILY 04/12/23 04/12/23 montelukast 10 mg tablet 10 mg PO DAILY 04/12/23 04/12/23 pantoprazole 40 mg tablet,delayed 40 mg PO DAILY 04/12/23 04/12/23 release Previous Rx's Medication Instructions Recorded clotrimazole 1 % topical cream 1 appl topical BID 2 weeks #45 04/12/23 grams Allergies Allergy/AdvReac Type Severity Reaction Status Date / Time azithromycin [AZITHROMYCIN] Allergy Severe Rash Verified 04/06/23 23:57 Fish Containing Products Allergy Severe Anaphylaxis Verified 04/06/23 23:57 codeine [Codeine] Allergy Intermediate Rash Verified 04/06/23 23:57 Penicillins Allergy Intermediate Rash Verified 04/06/23 23:57 prednisone [Prednisone] Allergy Intermediate Rash Verified 04/06/23 23:57 Sulfa (Sulfonamide Allergy Intermediate Rash Verified 04/06/23 23:57 Antibiotics) [Sulfa (Sulfonamides)] ziprasidone [From Geodon] Allergy Intermediate dysuria, Verified 04/06/23 23:57 rash Review of Systems Review of Systems: Constitutional: No weight loss, fever, chills, weakness or fatigue. Skin: Positive rash Cardiovascular: No chest pain, chest pressure or chest discomfort. No palpitations Respiratory: No shortness of breath, cough or sputum production. Gastrointestinal: No anorexia, nausea, vomiting or diarrhea. No abdominal pain Genitourinary: No burning micturition. No urinary frequency or incontinence. Musculoskeletal: No muscle pain, back pain, joint pain or stiffness. Yes all other systems are reviewed and are negative PMFSH Past Medical History Attestation statement: The following information was validated with the patient. Source: old records reviewed Medical History Acetaminophen overdose Borderline personality disorder Bronchitis Depression Diabetes type 2, controlled Full body hives GERD (gastroesophageal reflux disease) History of attempted suicide History of non-suicidal self-harm Hyperlipidemia Hypomagnesemia Major depression MDD (major depressive disorder), recurrent episode, severe Mood disorder Overdose PTSD (post-traumatic stress disorder) Suicide attempt Suicide attempt by acetaminophen overdose Social History Social History 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 Household Members Other:: nursing home Housing: Other Housing Other:: nursing home Do you presently have visiting nurse or other home services: No Unable to assess alcohol history related to: Unknown Alcohol intake: never Patient Tobacco Use Status: Current everyday Tobacco user Tobacco use type: Cigarette Cigarette Packs Per Day: 1 Cigarettes Per Day: 15 Years Smoked: 22 Smoked in Last 30 Days: Yes e-Cigarette/Vaping Use: Never Used Use of substances other than those prescribed or required for medical reasons: No Substance Use Type: Marijuana Advance Directives: No Advance Directives Information Provided: No service: No Current occupational status: unemployed and disabled Sexual orientation: Don't Know Physical Exam Vital Signs: Vital Signs: Last Vital Signs Temp 97.9 F 04/12/23 21:02 Pulse 84 04/12/23 21:02 Resp 17 04/12/23 21:02 BP 136/75 04/12/23 21:02 Pulse Ox 94 04/12/23 21:02 O2 Del Method Room Air 04/12/23 21:02 BMI result Body Mass Index 40.3 Appearance: Alert.?Oriented to person, place and time. No acute distress.?Normal affect.? Neck: Normal inspection.? Neck supple.?? CVS: Heart sounds normal. Normal heart rate and rhythm.? Pulses normal.?? Respiratory: No respiratory distress.? Lung sounds clear to auscultation bilaterally?? Abdomen: Soft and non-tender. Normoactive bowel sounds. Skin: Skin warm and dry.? Normal skin color.? Right-sided abdominal fold with moist erythematous rash and fissures with satellite lesions Extremities: No lower extremity edema.? Neuro: Moves all extremities spontaneously. Sensation intact bilaterally. CN II-XII intact. Ambulates with normal steady gait. Course Reevaluation(s) Reevaluation #1: Patient was reporting having visual hallucinations of her father, nursing staff had moved her to the [facility]. Upon speaking with the patient she denied any suicidal or homicidal ideations. Hallucinations are consistent with patient's baseline psychiatric disorder. Nursing staff to help coordinate transportation home Time: 19:00 Reevaluation #2: Nursing staff consulted with care team, variable to assist with 8 rides for month, for which she has already exceeded. senior living staff is unable to pick her up at this time, they will facilitate transportation in the morning. She has been placed in physician observation at this time. Time: 20:00 Medications Administered Discontinued Medications Generic Name Dose Route Start Last Admin Trade Name Freq PRN Reason Stop Dose Admin Nicotine Polacrilex 2 mg 04/12/23 22:42 04/12/23 22:52 Nicotine Polacrilex 2 Mg Gum BUCCAL 04/12/23 22:43 2 mg ONCE ONE Administration Medical Decision Making Medical Decision Making MDM Narrative: Patient is a 47-year-old female who presents emergency department for evaluation of a rash as noted in HPI. She is overall well-appearing, nontoxic, afebrile. Examination is most consistent with candidal intertrigo without any surrounding cellulitis, reviewed cleansing, complete drying the area, application of clotrimazole cream which a prescription was sent to the pharmacy for, and outpatient follow-up with her primary care provider. Reviewed worrisome signs and symptoms that would warrant re-evaluation in the emergency department. All questions answered. Stable for discharge. Differential Diagnosis Differential Diagnoses: The differential diagnosis associated with the presentation includes (Candidal intertrigo, tinea cruris, contact dermatitis, cellulitis) Admission/Observation Consideration of admission/observation: Escalation of care including admission/observation considered (Physician observation as noted in course) Lab Data 04/12/23 20:26 04/12/23 20:26 Labs: Lab Results 04/12/23 04/12/23 04/12/23 Range/Units 18:52 18:52 18:52 WBC (4.8-10.8) X10*3/uL RBC (4.20-5.50) X10*6/uL Hgb (12.0-16.0) g/dl Hct (37.0-47.0) % MCV (80.0-98.0) fL MCH (27.0-33.0) pg MCHC (31.0-35.0) g/dl RDW (11.0-16.0) % Plt Count (160-400) X10*3/uL MPV (9.4-12.3) fL Immature Gran % (Auto) (0.0-0.4) % Neut % (Auto) (45-73) % Lymph % (Auto) (20-40) % [place] % (Auto) (2-11) % Eos % (Auto) (0-4) % Baso % (Auto) (0-2) % Lymph # (Auto) (1.2-4.9) X10*3/uL [place] # (Auto) (0.1-1.2) X10*3/uL Eos # (Auto) (0.0-0.4) X10*3/uL Baso # (Auto) (0.0-0.2) X10*3/uL Abs Immat Gran (auto) (0.00-0.03) X10*3/uL Absolute Neuts (auto) (2.0-8.3) x10*3/uL Absolute Nucleated RBC (0.0-0.012) X10*3/uL Nucleated RBC % (auto) (0.0-0.2) /100WBC Sodium (135-145) mmol/L Potassium (3.3-5.1) mmol/L Chloride (96-108) mmol/L Carbon Dioxide (22-29) mmol/L Anion Gap (12-20) BUN (9-16) mg/dL Creatinine (0.5-1.4) mg/dL Estim Creat Clear Calc Estimated GFR Random Glucose (60-115) mg/dL Calcium (8.4-10.2) mg/dL Total Bilirubin (0.0-1.0) mg/dL AST (5-31) U/L ALT (0-31) U/L Alkaline Phosphatase (39-117) U/L Total Protein (6.5-8.0) g/dL Albumin (3.5-5.0) g/dL Urine Color Yellow Urine Appearance Clear Urine pH 6.5 (5.0-9.0) Ur Specific [place] <= 1.005 (1.005-1.025) Urine Protein Negative (Neg-Trace) mg/dL Urine Glucose (UA) Negative (Negative) mg/dL Urine Ketones Negative (Negative) mg/dL Urine Blood Negative (Negative) Urine Nitrite Negative (Negative) Ur Leukocyte Esterase Negative (Negative) Urine Test (NEGATIVE) Salicylates (15-30) mg/dL Urine Opiates Screen Not Detected (Not Detect) Urine Fentanyl Screen Not Detected (Not Detect) Acetaminophen (<30) mcg/mL Ur Barbiturates Screen Not Detected (Not Detect) Ur Phencyclidine Scrn Not Detected (Not Detect) Ur Amphetamines Screen Not Detected (Not Detect) U Benzodiazepines Scrn Not Detected (Not Detect) Urine Cocaine Screen Not Detected (Not Detect) U Marijuana (THC) Screen Not Detected (Not Detect) Ethyl Alcohol mg/dL COVID-19 (NICK) Negative (Negative) COVID-19 Clin Com See Note 04/12/23 04/12/23 04/12/23 Range/Units 18:52 20:26 20:26 WBC 8.3 (4.8-10.8) X10*3/uL RBC 4.17 L (4.20-5.50) X10*6/uL Hgb 11.8 L (12.0-16.0) g/dl Hct 36.9 L (37.0-47.0) % MCV 88.5 (80.0-98.0) fL MCH 28.3 (27.0-33.0) pg MCHC 32.0 (31.0-35.0) g/dl RDW 13.7 (11.0-16.0) % Plt Count 286 (160-400) X10*3/uL MPV 9.5 (9.4-12.3) fL Immature Gran % (Auto) 0.2 (0.0-0.4) % Neut % (Auto) 69.2 (45-73) % Lymph % (Auto) 21.4 (20-40) % [place] % (Auto) 5.8 (2-11) % Eos % (Auto) 3.0 (0-4) % Baso % (Auto) 0.4 (0-2) % Lymph # (Auto) 1.8 (1.2-4.9) X10*3/uL [place] # (Auto) 0.5 (0.1-1.2) X10*3/uL Eos # (Auto) 0.3 (0.0-0.4) X10*3/uL Baso # (Auto) 0.0 (0.0-0.2) X10*3/uL Abs Immat Gran (auto) 0.02 (0.00-0.03) X10*3/uL Absolute Neuts (auto) 5.7 (2.0-8.3) x10*3/uL Absolute Nucleated RBC 0.000 (0.0-0.012) X10*3/uL Nucleated RBC % (auto) 0.0 (0.0-0.2) /100WBC Sodium 133 L (135-145) mmol/L Potassium 3.7 (3.3-5.1) mmol/L Chloride 105 (96-108) mmol/L Carbon Dioxide 19 L (22-29) mmol/L Anion Gap 13 (12-20) BUN 8 L (9-16) mg/dL Creatinine 0.77 (0.5-1.4) mg/dL Estim Creat Clear Calc 105.9 Estimated GFR > 60 Random Glucose 129 H (60-115) mg/dL Calcium 9.3 (8.4-10.2) mg/dL Total Bilirubin 0.3 (0.0-1.0) mg/dL AST 16 (5-31) U/L ALT 12 (0-31) U/L Alkaline Phosphatase 103 (39-117) U/L Total Protein 7.5 (6.5-8.0) g/dL Albumin 4.2 (3.5-5.0) g/dL Urine Color Urine Appearance Urine pH (5.0-9.0) Ur Specific [place] (1.005-1.025) Urine Protein (Neg-Trace) mg/dL Urine Glucose (UA) (Negative) mg/dL Urine Ketones (Negative) mg/dL Urine Blood (Negative) Urine Nitrite (Negative) Ur Leukocyte Esterase (Negative) Urine Test NEGATIVE (NEGATIVE) Salicylates (15-30) mg/dL Urine Opiates Screen (Not Detect) Urine Fentanyl Screen (Not Detect) Acetaminophen (<30) mcg/mL Ur Barbiturates Screen (Not Detect) Ur Phencyclidine Scrn (Not Detect) Ur Amphetamines Screen (Not Detect) U Benzodiazepines Scrn (Not Detect) Urine Cocaine Screen (Not Detect) U Marijuana (THC) Screen (Not Detect) Ethyl Alcohol mg/dL COVID-19 (NICK) (Negative) COVID-19 Clin Com 04/12/23 04/12/23 Range/Units 20:26 20:26 WBC (4.8-10.8) X10*3/uL RBC (4.20-5.50) X10*6/uL Hgb (12.0-16.0) g/dl Hct (37.0-47.0) % MCV (80.0-98.0) fL MCH (27.0-33.0) pg MCHC (31.0-35.0) g/dl RDW (11.0-16.0) % Plt Count (160-400) X10*3/uL MPV (9.4-12.3) fL Immature Gran % (Auto) (0.0-0.4) % Neut % (Auto) (45-73) % Lymph % (Auto) (20-40) % [place] % (Auto) (2-11) % Eos % (Auto) (0-4) % Baso % (Auto) (0-2) % Lymph # (Auto) (1.2-4.9) X10*3/uL [place] # (Auto) (0.1-1.2) X10*3/uL Eos # (Auto) (0.0-0.4) X10*3/uL Baso # (Auto) (0.0-0.2) X10*3/uL Abs Immat Gran (auto) (0.00-0.03) X10*3/uL Absolute Neuts (auto) (2.0-8.3) x10*3/uL Absolute Nucleated RBC (0.0-0.012) X10*3/uL Nucleated RBC % (auto) (0.0-0.2) /100WBC Sodium (135-145) mmol/L Potassium (3.3-5.1) mmol/L Chloride (96-108) mmol/L Carbon Dioxide (22-29) mmol/L Anion Gap (12-20) BUN (9-16) mg/dL Creatinine (0.5-1.4) mg/dL Estim Creat Clear Calc Estimated GFR Random Glucose (60-115) mg/dL Calcium (8.4-10.2) mg/dL Total Bilirubin (0.0-1.0) mg/dL AST (5-31) U/L ALT (0-31) U/L Alkaline Phosphatase (39-117) U/L Total Protein (6.5-8.0) g/dL Albumin (3.5-5.0) g/dL Urine Color Urine Appearance Urine pH (5.0-9.0) Ur Specific [place] (1.005-1.025) Urine Protein (Neg-Trace) mg/dL Urine Glucose (UA) (Negative) mg/dL Urine Ketones (Negative) mg/dL Urine Blood (Negative) Urine Nitrite (Negative) Ur Leukocyte Esterase (Negative) Urine Test (NEGATIVE) Salicylates < 5.0 L (15-30) mg/dL Urine Opiates Screen (Not Detect) Urine Fentanyl Screen (Not Detect) Acetaminophen < 17 (<30) mcg/mL Ur Barbiturates Screen (Not Detect) Ur Phencyclidine Scrn (Not Detect) Ur Amphetamines Screen (Not Detect) U Benzodiazepines Scrn (Not Detect) Urine Cocaine Screen (Not Detect) U Marijuana (THC) Screen (Not Detect) Ethyl Alcohol < 10 mg/dL COVID-19 (NICK) (Negative) COVID-19 Clin Com Independent Historian Clinical information obtained from an independent historian. History obtained from or confirmed by: EMS (Obtained history from EMS as noted in HPI) External Record Review External record reviewed: Prior outpatient labs Prescription Management I considered prescription management with: Other (Clotrimazole) Discharge Plan Discharge Clinical Impression: Candidal intertrigo Patient Disposition: Home, Self-Care Instructions: Skin Yeast Infection (ED) Additional Instructions: Please cleanse the area twice daily with warm water and mild non scented soap. Be sure to dry the area completely after cleansing apply topical clotrimazole twice daily. Follow-up with primary care provider for any new or worsening symptoms. You can take ibuprofen 200 mg, 3 tablets (600mg) every 6-8 hours as needed for pain, in addition to Tylenol 500 mg, 2 tablets (1,000mg) every 4-6 hours as needed for pain, but not to exceed 3 doses daily (3,000mg).? Return to the emergency department any new or worsening symptoms or concerns Prescriptions: New clotrimazole 1 % cream 1 appl topical BID 14 Days Qty: 45 0RF No Action metformin 500 mg tablet 500 mg PO BID pantoprazole 40 mg tablet,delayed release (DR/EC) 40 mg PO DAILY montelukast 10 mg tablet 10 mg PO DAILY lisinopril 5 mg tablet 5 mg PO DAILY mirtazapine 15 mg tablet 7.5 mg PO DAILY lurasidone [Latuda] 20 mg tablet 20 mg PO DAILY
[2023-04-12 17:54] VITALS: BMI 40.3
--- NOTE | 2023-04-12 18:49 | PC.NURSE ---
Pt oriented to unit, belongings secured, pt calm and cooperative with care. states she is hallucinating and seeing her father.
[2023-04-12 19:06] LABS: Appearance Urine Clear; Color Urine Yellow; Glucose Urine UA Negative (Negative); Leukocyte Esterase Urine Negative (Negative); Nitrite Urine Negative (Negative); PH 6.5 (5.0-9.0); Specific Gravity - Urine <= 1.005 (1.005-1.025); Urine Blood Negative (Negative); Urine Ketones Negative (Negative); Urine Protein Negative (Neg-Trace)
[2023-04-12 19:07] LABS: UPreg QC Valid YES; Urine Pregnancy NEGATIVE (NEGATIVE)
[2023-04-12 19:15] LABS: Amphetamine Screen Urine Not Detected (Not Detect); Barbiturates, Urine Not Detected (Not Detect); Benzodiazepines Screen Urine Not Detected (Not Detect); Cannabinoid Screen Urine Not Detected (Not Detect); Cocaine Screen Urine Not Detected (Not Detect); Fentanyl, urine Not Detected (Not Detect); Opiate Screen Urine Not Detected (Not Detect); Phencyclidine Screen Urine Not Detected (Not Detect)
[2023-04-12 19:17] LABS: COVID-19 Test Negative (Negative); IDNOW Serial# 08D9AD1C
--- NOTE | 2023-04-12 19:32 | MHC.EDTECH ---
t/w attempted lab draw, unable to obtain. Bernie Tillman, attempted x2 to obtain lab draw and was also unsuccessful. RN MADE AWARE.
[2023-04-12 20:33] LABS: MANUAL DIFF FLAG NO
[2023-04-12 20:34] LABS: Basophils Percent Auto 0.4 % (0-2); Eosinophils Absolute Auto 0.3 X10*3/uL (0.0-0.4); Hematocrit 36.9 % (37.0-47.0); Hemoglobin 11.8 g/dl (12.0-16.0); Imm Gran Abs Auto 0.02 X10*3/uL (0.00-0.03); Imm Gran Pct Auto 0.2 % (0.0-0.4); Lymphocytes Absolute Auto 1.8 X10*3/uL (1.2-4.9); Lymphocytes Percent Auto 21.4 % (20-40); Mean Corpuscular Hemoglobin 28.3 pg (27.0-33.0); Mean Corpuscular Volume 88.5 fL (80.0-98.0); Mean Platelet Volume 9.5 fL (9.4-12.3); Monocytes Absolute Auto 0.5 X10*3/uL (0.1-1.2); Monocytes Percent Auto 5.8 % (2-11); Neutrophils Absolute Auto 5.7 x10*3/uL (2.0-8.3); Neutrophils Percent Auto 69.2 % (45-73); Platelet Count 286 X10*3/uL (160-400); Red Blood Count 4.17 X10*6/uL (4.20-5.50); Red Cell Distribution Width 13.7 % (11.0-16.0); White Blood Count 8.3 X10*3/uL (4.8-10.8)
[2023-04-12 20:59] LABS: Ethanol < 10 mg/dL
[2023-04-12 21:00] LABS: Alanine Aminotransferase 12 U/L (0-31); Albumin Level 4.2 g/dL (3.5-5.0); Alkaline Phosphatase 103 U/L (39-117); Anion Gap 13 (12-20); Aspartate Amino Transferase 16 U/L (5-31); Bilirubin Total 0.3 mg/dL (0.0-1.0); Blood Urea Nitrogen 8 mg/dL (9-16); Calcium 9.3 mg/dL (8.4-10.2); Carbon Dioxide 19 mmol/L (22-29); Chloride 105 mmol/L (96-108); Creatinine Clr Calc Pharmacy 105.9; Estimated Glomerular Filt Rate > 60; Glucose Random 129 mg/dL (60-115); Potassium 3.7 mmol/L (3.3-5.1); Sodium 133 mmol/L (135-145); Total Protein 7.5 g/dL (6.5-8.0)
[2023-04-12 21:02] VITALS: BP 136/75; PULSE 84; RESP 17; TEMP 36.6; O2SAT 94
[2023-04-12 21:09] LABS: Acetaminophen LAB < 17 mcg/mL (<30); Salicylate < 5.0 mg/dL (15-30)
[2023-04-12] MEDS: Nicotine Polacrilex 2 MG GUM BUCCAL (22:52)
== END 2023-04-13 01:49 | disposition home or self-care (01) ==
PROVIDERS: Emergency Provider Student in an Organized Health Care Education/Training Program
DX: B37.2 Candidiasis of skin and nail (principal); Z79.899 Other long term (current) drug therapy; Z20.822 Contact with and (suspected) exposure to COVID-19; Z20.828 Contact with and (suspected) exposure to other viral communicable diseases
CPT/HCPCS: 36415; 80053; 80143; 80179; 80307; 81003; 81025; 85025; 87635; 99284

== ENCOUNTER 2023-04-14 21:13 | Emergency (ER) | payer MEDICARE, MEDICAID, SELFPAY ==
[2023-04-14 21:24] VITALS: BMI 36.3
[2023-04-14 21:34] VITALS: BP 157/93; PULSE 112; RESP 17; TEMP 37.1; O2SAT 97
--- NOTE | 2023-04-14 23:24 | ED.PSYCH ---
HPI - Psych General Chief Complaint: Psychiatric Symptoms Stated Complaint: Hearing Voices Time Seen by Provider: 04/14/23 21:50 Source: patient Mode of arrival: EMS Limitations: no limitations History of Present Illness HPI Narrative: Female history of psychiatric disorder presents with hearing voices. She reports the voices the same to cut herself. In the past they have told her to overdose on medications. Patient denies any suicidal ideation or homicidal ideation at this time. She reports her symptoms as being severe. There is no clear relieving or exacerbating features. Patient has a history of similar voices. She reports being compliant with her medications. Patient denies any drug or alcohol abuse. Related Data Home Medications Medication Instructions Recorded Confirmed lisinopril 5 mg tablet 5 mg PO DAILY 04/12/23 04/14/23 lurasidone 20 mg tablet (Latuda) 20 mg PO DAILY 04/12/23 04/14/23 metformin 500 mg tablet 500 mg PO BID 04/12/23 04/14/23 mirtazapine 15 mg tablet 7.5 mg PO DAILY 04/12/23 04/14/23 montelukast 10 mg tablet 10 mg PO DAILY 04/12/23 04/14/23 pantoprazole 40 mg tablet,delayed 40 mg PO DAILY 04/12/23 04/14/23 release Previous Rx's Medication Instructions Recorded clotrimazole 1 % topical cream 1 appl topical BID 2 weeks #45 04/12/23 grams Allergies Allergy/AdvReac Type Severity Reaction Status Date / Time azithromycin [AZITHROMYCIN] Allergy Severe Rash Verified 04/06/23 23:57 Fish Containing Products Allergy Severe Anaphylaxis Verified 04/06/23 23:57 codeine [Codeine] Allergy Intermediate Rash Verified 04/06/23 23:57 Penicillins Allergy Intermediate Rash Verified 04/06/23 23:57 prednisone [Prednisone] Allergy Intermediate Rash Verified 04/06/23 23:57 Sulfa (Sulfonamide Allergy Intermediate Rash Verified 04/06/23 23:57 Antibiotics) [Sulfa (Sulfonamides)] ziprasidone [From Geodon] Allergy Intermediate dysuria, Verified 04/06/23 23:57 rash Review of Systems Review of Systems: CONSTITUTIONAL: Denies weight loss, fever and chills. HEENT: Denies changes in vision and hearing. RESPIRATORY: Denies SOB and cough. CV: Denies palpitations no CP. GI: Denies abdominal pain, nausea, vomiting and diarrhea. : Denies dysuria and urinary frequency. MSK: Denies myalgia and joint pain. SKIN: Denies rash and pruritus. NEUROLOGICAL: Denies headache and syncope. PSYCHIATRIC: See HPI All other ROS are negative unless in HPI PMFSH Past Medical History Attestation statement: The following information was validated with the patient. Medical History Acetaminophen overdose Borderline personality disorder Bronchitis Depression Diabetes type 2, controlled Full body hives GERD (gastroesophageal reflux disease) History of attempted suicide History of non-suicidal self-harm Hyperlipidemia Hypomagnesemia Major depression MDD (major depressive disorder), recurrent episode, severe Mood disorder Overdose PTSD (post-traumatic stress disorder) Suicide attempt Suicide attempt by acetaminophen overdose Social History Social History 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 Household Members Other:: care home Housing: Other Housing Other:: care home Do you presently have visiting nurse or other home services: No Unable to assess alcohol history related to: Unknown Alcohol intake: never Patient Tobacco Use Status: Current everyday Tobacco user Tobacco use type: Cigarette Cigarette Packs Per Day: 1 Cigarettes Per Day: 15 Years Smoked: 22 e-Cigarette/Vaping Use: Never Used Substance Use Type: Marijuana Advance Directives: No Advance Directives Information Provided: No service: No Current occupational status: unemployed and disabled Sexual orientation: Don't Know Physical Exam Vital Signs: Vital Signs: Last Vital Signs Temp 97.6 F 04/15/23 05:18 Pulse 82 04/15/23 05:18 Resp 16 04/15/23 05:18 BP 145/91 H 04/15/23 05:18 Pulse Ox 99 04/15/23 05:18 O2 Del Method Room Air 04/15/23 05:18 BMI result Body Mass Index 36.3 GEN: Well developed, no acute distress, alert, oriented HEENT: Normocephalic, atraumatic, normal external ears, nose appears normal Eyes: Normal to appearance Neck: Supple, no lymphadenopathy Respiratory: Talks in complete sentences, no respiratory distress Extremities: No clubbing cyanosis or edema Neurologic: No focal neurologic deficits, cranial nerves 2-12 intact, gait normal Skin: No rash , scars from old cutting wounds, no fresh wounds Course Course Course Narrative: Patient is well known to our facility. She presents with auditory hallucinations, no SI or HI. She will stay in our Behavioral Health pending evaluation. Symptoms appear to be stable in nature. She requests to be transferred to the hospital for evaluation. Patient will be placed in physician observation pending Behavioral Health evaluation and pending disposition. Reevaluation(s) Reevaluation #1: Patient is pending care team evaluation. Patient will be signed out to the oncoming provider at 7:00 a.m. this morning. Time: 07:00 Medications Administered Generic Name Dose Route Start Last Admin Trade Name Freq PRN Reason Stop Dose Admin Clotrimazole 1 appl 04/14/23 22:15 04/14/23 23:13 Clotrimazole 1 % Cream 15 Gm Tube TOPICAL 1 appl BID YULY Administration Protocol Omeprazole 20 mg 04/15/23 06:30 04/15/23 05:21 Omeprazole 20 Mg Capsule. PO 20 mg DAILY@0630 YULY Administration Discontinued Medications Generic Name Dose Route Start Last Admin Trade Name Freq PRN Reason Stop Dose Admin Nicotine 21 mg 04/14/23 22:15 04/14/23 23:14 Nicotine 21 Mg Patch.[id number] TRANSDERMA 04/14/23 22:16 21 mg ONCE ONE Administration Medical Decision Making Medical Decision Making [facility] Narrative: Patient presents with auditory hallucinations telling her to harm herself by cutting her arms. She denies SI or HI. She is currently in our Behavioral Health area. Care team evaluation is pending. Patient will need to be medically cleared. Differential diagnosis includes anxiety, depression, PTSD, schizophrenia, factitious disorder, Plan, laboratory analysis, behavior health evaluation Differential Diagnosis Differential Diagnoses: The differential diagnosis associated with the presentation includes Consult Healthcare Provider Management of the patient was discussed with: Behavioral Health Provider Lab Data [facility] Lab Attestation statement: I reviewed the patient's lab results. Labs: Lab Results 04/14/23 04/14/23 04/14/23 Range/Units 22:22 22:23 22:45 Urine Color Yellow Urine Appearance Clear Urine pH 5.5 (5.0-9.0) Ur Specific [place] <= 1.005 (1.005-1.025) Urine Protein Negative (Neg-Trace) mg/dL Urine Glucose (UA) Negative (Negative) mg/dL Urine Ketones Negative (Negative) mg/dL Urine Blood Negative (Negative) Urine Nitrite Negative (Negative) Ur Leukocyte Esterase Negative (Negative) Salicylates (15-30) mg/dL Urine Opiates Screen Not Detected (Not Detect) Urine Fentanyl Screen Not Detected (Not Detect) Acetaminophen (<30) mcg/mL Ur Barbiturates Screen Not Detected (Not Detect) Ur Phencyclidine Scrn Not Detected (Not Detect) Ur Amphetamines Screen Not Detected (Not Detect) U Benzodiazepines Scrn Not Detected (Not Detect) Urine Cocaine Screen Not Detected (Not Detect) U Marijuana (THC) Screen Not Detected (Not Detect) Ethyl Alcohol < 10 mg/dL 04/14/23 Range/Units 22:45 Urine Color Urine Appearance Urine pH (5.0-9.0) Ur Specific [place] (1.005-1.025) Urine Protein (Neg-Trace) mg/dL Urine Glucose (UA) (Negative) mg/dL Urine Ketones (Negative) mg/dL Urine Blood (Negative) Urine Nitrite (Negative) Ur Leukocyte Esterase (Negative) Salicylates < 5.0 L (15-30) mg/dL Urine Opiates Screen (Not Detect) Urine Fentanyl Screen (Not Detect) Acetaminophen < 17 (<30) mcg/mL Ur Barbiturates Screen (Not Detect) Ur Phencyclidine Scrn (Not Detect) Ur Amphetamines Screen (Not Detect) U Benzodiazepines Scrn (Not Detect) Urine Cocaine Screen (Not Detect) U Marijuana (THC) Screen (Not Detect) Ethyl Alcohol mg/dL Independent Historian Clinical information obtained from an independent historian. History obtained from or confirmed by: EMS External Record Review External record reviewed: Inpatient record and Office record Psychiatric progress notes and consultation Chronic Conditions Patient?s care impacted by: Other (Psychiatric history) Discharge Plan Discharge Clinical Impression: Depression, Borderline personality disorder, Chronic post-traumatic stress disorder Patient Disposition: Still a Patient Prescriptions: No Action clotrimazole 1 % cream 1 appl topical BID 14 Days Qty: 45 0RF metformin 500 mg tablet 500 mg PO BID pantoprazole 40 mg tablet,delayed release (DR/EC) 40 mg PO DAILY montelukast 10 mg tablet 10 mg PO DAILY lisinopril 5 mg tablet 5 mg PO DAILY mirtazapine 15 mg tablet 7.5 mg PO DAILY lurasidone [Latuda] 20 mg tablet 20 mg PO DAILY Interventions: Critz-Suicide Risk Severity Scale Last Done: 04/15/23 00:42
[2023-04-15 05:18] VITALS: BP 145/91; PULSE 82; RESP 16; TEMP 36.4; O2SAT 99
--- NOTE | 2023-04-15 05:43 | PC.NURSE ---
Patient slept through the night, no distress observed/reported, medication compliant, care consult ordered, pending evaluation, VSS, behavior non concerning, labs completed/resulted, will continue to monitor.
== END 2023-04-15 07:56 | disposition home or self-care (01) ==
PROVIDERS: Emergency Provider Emergency Medicine Emergency Medical Services
DX: F31.9 Bipolar disorder, unspecified (principal); F60.3 Borderline personality disorder; F43.12 Post-traumatic stress disorder, chronic; R44.0 Auditory hallucinations; R45.851 Suicidal ideations; F41.9 Anxiety disorder, unspecified; E11.9 Type 2 diabetes mellitus without complications; E78.5 Hyperlipidemia, unspecified; D64.9 Anemia, unspecified; F17.210 Nicotine dependence, cigarettes, uncomplicated; F12.90 Cannabis use, unspecified, uncomplicated; E66.9 Obesity, unspecified; Z68.37 Body mass index [BMI] 37.0-37.9, adult; Z91.51 Personal history of suicidal behavior; Z91.52 Personal history of nonsuicidal self-harm; Z79.84 Long term (current) use of oral hypoglycemic drugs; Z79.899 Other long term (current) drug therapy
CPT/HCPCS: 36415; 80143; 80179; 80307; 81003; 99284

== ENCOUNTER 2023-04-16 17:54 | Emergency (ER) | payer MEDICARE, MEDICAID, SELFPAY ==
[2023-04-16 18:20] VITALS: BP 116/78; BP 132/86; PULSE 108; PULSE 90; RESP 16; TEMP 37.5; O2SAT 97; O2SAT 99; BMI 36.6
--- NOTE | 2023-04-16 18:53 | ED.GENADULT ---
HPI - General Adult General Chief complaint: Psychiatric Symptoms Stated complaint: si Time Seen by Provider: 04/16/23 18:04 Source: patient, RN notes reviewed and old records reviewed Mode of arrival: EMS Limitations: no limitations History of Present Illness HPI narrative: 47-year-old female past medical history significant for bipolar disorder, borderline personality disorder, depression anxiety presents for evaluation of ?hearing voices. ? Patient reports that she has been hearing voices in the meantime her to kill herself She states this started about 30 minutes prior to arrival She reports that she has been taking all her medications Patient is well known to this emergency department for similar presentations She reports that she scratched her abdomen where she has a rash that was diagnosed as a fungal rash a few days ago and she is on clotrimazole for Related Data Home Medications Medication Instructions Recorded Confirmed lisinopril 5 mg tablet 5 mg PO DAILY 04/12/23 04/14/23 lurasidone 20 mg tablet (Latuda) 20 mg PO DAILY 04/12/23 04/14/23 metformin 500 mg tablet 500 mg PO BID 04/12/23 04/14/23 mirtazapine 15 mg tablet 7.5 mg PO DAILY 04/12/23 04/14/23 montelukast 10 mg tablet 10 mg PO DAILY 04/12/23 04/14/23 pantoprazole 40 mg tablet,delayed 40 mg PO DAILY 04/12/23 04/14/23 release Previous Rx's Medication Instructions Recorded clotrimazole 1 % topical cream 1 appl topical BID 2 weeks #45 04/12/23 grams Allergies Allergy/AdvReac Type Severity Reaction Status Date / Time azithromycin [AZITHROMYCIN] Allergy Severe Rash Verified 04/06/23 23:57 Fish Containing Products Allergy Severe Anaphylaxis Verified 04/06/23 23:57 codeine [Codeine] Allergy Intermediate Rash Verified 04/06/23 23:57 Penicillins Allergy Intermediate Rash Verified 04/06/23 23:57 prednisone [Prednisone] Allergy Intermediate Rash Verified 04/06/23 23:57 Sulfa (Sulfonamide Allergy Intermediate Rash Verified 04/06/23 23:57 Antibiotics) [Sulfa (Sulfonamides)] ziprasidone [From Geodon] Allergy Intermediate dysuria, Verified 04/06/23 23:57 rash Review of Systems Integumentary/Breasts: Skin/Breast: Reports pruritus and Reports rash Psychiatric: Psychiatric: Reports auditory hallucinations, Reports paranoia and Reports suicidal ideation [facility] Past Medical History Medical History Acetaminophen overdose Borderline personality disorder Bronchitis Depression Diabetes type 2, controlled Full body hives GERD (gastroesophageal reflux disease) History of attempted suicide History of non-suicidal self-harm Hyperlipidemia Hypomagnesemia Major depression MDD (major depressive disorder), recurrent episode, severe Mood disorder Overdose PTSD (post-traumatic stress disorder) Suicide attempt Suicide attempt by acetaminophen overdose Social History Social History 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 Household Members Other:: jail Housing: Other Housing Other:: jail Do you presently have visiting nurse or other home services: No Unable to assess alcohol history related to: Unknown Alcohol intake: never Patient Tobacco Use Status: Current everyday Tobacco user Tobacco use type: Cigarette Cigarette Packs Per Day: 1 Cigarettes Per Day: 15 Years Smoked: 22 Smoked in Last 30 Days: Yes e-Cigarette/Vaping Use: Never Used Use of substances other than those prescribed or required for medical reasons: No Substance Use Type: Marijuana Advance Directives: No Advance Directives Information Provided: Yes Patient : No service: No Current occupational status: unemployed and disabled Sexual orientation: Don't Know Physical Exam ED Vital Signs: Vital Signs - 24 hr 04/16/23 18:20 Temperature 99.5 F Pulse Rate 108 H Respiratory Rate 16 Blood Pressure 116/78 Pulse Oximetry 97 Oxygen Delivery Method Room Air BMI result Body Mass Index 36.6 Const General: healthy appearing, comfortable, no acute distress, alert and awake Nutritional Appearance: well nourished Orientation/consciousness: patient oriented x3 HENMT Head: Yes normocephalic and Yes atraumatic Eyes Eyelids: Yes eyelids normal Conjunctivae: conjunctivae normal Sclerae: sclerae normal Corneas: corneas normal Pupils: Equal, round and reactive pupils present EOM: EOMs intact bilaterally Neck Neck: Yes full ROM Resp Effort & Inspection: normal respiratory effort, able to speak in complete sentences and not labored Skin Other: Mild candidal rash to the right mid abdomen. Several superficial excoriation hewitt to the mid abdomen. No active bleeding General skin exam: elasticity normal Neuro General: patient oriented x3 Cranial nerves: Yes Equal, round and reactive pupils present and Yes Bilaterally intact EOM present Cognition (Neuro): normal cognition Extrem Other: Moving all extremities well without any obvious deformities Medical Decision Making Medical Decision Making MDM Narrative: Patient is well known to this emergency department for similar presentations. Within 1 hour of arrival, the patient reports that she felt much better and requested to go home as she now feels safe. This is fairly typical of her presentation. She is not currently suicidal and is safe for discharge at this time. Differential Diagnosis Differential Diagnoses: The differential diagnosis associated with the presentation includes Bipolar disorder Suicidal ideation Medication noncompliance Borderline personality disorder Discharge Plan Discharge Clinical Impression: Bipolar disorder Patient Disposition: Home, Self-Care Instructions: Bipolar Disorder (ED) Additional Instructions: Return to the ER immediately for any new or worsening symptoms, especially if you are having thoughts of harming yourself Prescriptions: No Action clotrimazole 1 % cream 1 appl topical BID 14 Days Qty: 45 0RF metformin 500 mg tablet 500 mg PO BID pantoprazole 40 mg tablet,delayed release (DR/EC) 40 mg PO DAILY montelukast 10 mg tablet 10 mg PO DAILY lisinopril 5 mg tablet 5 mg PO DAILY mirtazapine 15 mg tablet 7.5 mg PO DAILY lurasidone [Latuda] 20 mg tablet 20 mg PO DAILY Interventions: [place]-Suicide Risk Severity Scale Last Done: 04/16/23 18:32 ED Discharge Assessment Last Done: 04/16/23 19:02
== END 2023-04-16 19:11 | disposition home or self-care (01) ==
PROVIDERS: Emergency Provider Internal Medicine
DX: F31.9 Bipolar disorder, unspecified (principal); F60.3 Borderline personality disorder; F41.9 Anxiety disorder, unspecified; R44.0 Auditory hallucinations; F43.12 Post-traumatic stress disorder, chronic; E11.9 Type 2 diabetes mellitus without complications; E78.5 Hyperlipidemia, unspecified; D64.9 Anemia, unspecified; F17.210 Nicotine dependence, cigarettes, uncomplicated; F12.90 Cannabis use, unspecified, uncomplicated; E66.9 Obesity, unspecified; Z68.36 Body mass index [BMI] 36.0-36.9, adult; Z91.51 Personal history of suicidal behavior; Z91.52 Personal history of nonsuicidal self-harm; Z79.84 Long term (current) use of oral hypoglycemic drugs; Z79.899 Other long term (current) drug therapy
CPT/HCPCS: 99284

== ENCOUNTER 2023-04-22 19:46 | Emergency (ER) | payer MEDICARE, MEDICAID, SELFPAY ==
[2023-04-22 19:57] VITALS: BMI 37.9
[2023-04-22 20:06] VITALS: BP 143/96; PULSE 109; RESP 17; TEMP 36.4; O2SAT 97
--- NOTE | 2023-04-22 20:21 | ED.PSYCH ---
HPI - Psych General Chief Complaint: Psychiatric Symptoms Stated Complaint: HEARING VOICES Time Seen by Provider: 04/22/23 20:00 Source: patient, EMS and old records reviewed Mode of arrival: EMS Limitations: no limitations History of Present Illness HPI Narrative: 47-year-old female with a history of borderline personality disorder, bipolar disorder, chronic auditory hallucinations, anxiety, multiple suicide attempt with Tylenol overdose in the past who presents to the ER from her residential for evaluation of auditory hallucinations. She states the voices are telling her to harm herself. She denies any action on these voices. She states they come and go and are chronic. She did not take any Tylenol today. She has been compliant with her medications. MD complaint: hallucinations Duration: intermittent History of same: Yes Relieving factors: none Exacerbating factors: none Associated psychiatric symptoms: auditory hallucinations Associated symptoms: denies other symptoms Related Data Home Medications Medication Instructions Recorded Confirmed lisinopril 5 mg tablet 5 mg PO DAILY 04/12/23 04/22/23 lurasidone 20 mg tablet (Latuda) 20 mg PO DAILY 04/12/23 04/22/23 metformin 500 mg tablet 500 mg PO BID 04/12/23 04/22/23 mirtazapine 15 mg tablet 7.5 mg PO DAILY 04/12/23 04/22/23 montelukast 10 mg tablet 10 mg PO DAILY 04/12/23 04/22/23 pantoprazole 40 mg tablet,delayed 40 mg PO DAILY 04/12/23 04/22/23 release Previous Rx's Medication Instructions Recorded clotrimazole 1 % topical cream 1 appl topical BID 2 weeks #45 04/12/23 grams Allergies Allergy/AdvReac Type Severity Reaction Status Date / Time azithromycin [AZITHROMYCIN] Allergy Severe Rash Verified 04/06/23 23:57 Fish Containing Products Allergy Severe Anaphylaxis Verified 04/06/23 23:57 codeine [Codeine] Allergy Intermediate Rash Verified 04/06/23 23:57 Penicillins Allergy Intermediate Rash Verified 04/06/23 23:57 prednisone [Prednisone] Allergy Intermediate Rash Verified 04/06/23 23:57 Sulfa (Sulfonamide Allergy Intermediate Rash Verified 04/06/23 23:57 Antibiotics) [Sulfa (Sulfonamides)] ziprasidone [From Geodon] Allergy Intermediate dysuria, Verified 04/06/23 23:57 rash Review of Systems Review of Systems: Yes all other systems are reviewed and are negative [facility] Past Medical History Medical History Acetaminophen overdose Borderline personality disorder Bronchitis Depression Diabetes type 2, controlled Full body hives GERD (gastroesophageal reflux disease) History of attempted suicide History of non-suicidal self-harm Hyperlipidemia Hypomagnesemia Major depression MDD (major depressive disorder), recurrent episode, severe Mood disorder Overdose PTSD (post-traumatic stress disorder) Suicide attempt Suicide attempt by acetaminophen overdose Social History Social History 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 Household Members Other:: residential Housing: Other Housing Other:: residential Do you presently have visiting nurse or other home services: No Unable to assess alcohol history related to: Unknown Alcohol intake: never Patient Tobacco Use Status: Current everyday Tobacco user Tobacco use type: Cigarette Cigarette Packs Per Day: 1 Cigarettes Per Day: 15 Years Smoked: 22 e-Cigarette/Vaping Use: Never Used Substance Use Type: Marijuana Advance Directives: No Advance Directives Information Provided: No service: No Current occupational status: unemployed and disabled Sexual orientation: Don't Know Physical Exam Vital Signs: Vital Signs: Last Vital Signs Temp 97.6 F 04/22/23 20:06 Pulse 109 H 04/22/23 20:06 Resp 17 04/22/23 20:06 BP 143/96 H 04/22/23 20:06 Pulse Ox 97 04/22/23 20:06 O2 Del Method Room Air 04/22/23 20:06 BMI result Body Mass Index 37.9 Appearance: Alert. Oriented X3. No acute distress. Head: normocephalic, atraumatic. Eyes: Pupils equal, round and reactive to light. ENT: Pharynx normal. No tonsillar swelling or exudate. Neck: Normal inspection. Neck supple. CVS: Normal heart rate and rhythm. Pulses normal. Respiratory: No respiratory distress. Breath sounds normal. Abdomen: Soft and nontender. +BS x4 Skin: Skin warm and dry. Normal skin color. Normal skin turgor. No rashes. Extremities: No lower extremity edema. No joint swelling. Neuro/psych: Oriented X 3. No motor deficit. No sensory deficit. CN II-XII intact. Normal speech and cognition. +AH, no VH, flat affect, No SI or HI Medical Decision Making Medical Decision Making [facility] Narrative: 47-year-old female well known to the ER presents the ER for evaluation of acute on chronic auditory hallucinations. This is patient's baseline. She did not take any Tylenol today. She has been in the pod for over an hour and she states she already wants to go back to her residential. She does not require full care team assessment at this time. I am comfortable with discharging her back to her residential. Stable for discharge. Differential Diagnosis Differential Diagnoses: The differential diagnosis associated with the presentation includes Borderline personality disorder, substance induced mood disorder, acute psychosis, schizophrenia, schizoaffective disorder, PTSD, bipolar disorder, major depression with psychotic features Lab Data [facility] Lab Attestation statement: I reviewed the patient's lab results. Labs: Lab Results 04/22/23 04/22/23 Range/Units 20:40 20:40 Urine Color Yellow Urine Appearance Clear Urine pH 5.5 (5.0-9.0) Ur Specific [place] <= 1.005 (1.005-1.025) Urine Protein Negative (Neg-Trace) mg/dL Urine Glucose (UA) Negative (Negative) mg/dL Urine Ketones Negative (Negative) mg/dL Urine Blood Trace H (Negative) Urine Nitrite Negative (Negative) Ur Leukocyte Esterase Large (3+) H (Negative) Urine RBC 0-2 (0-2) /HPF Urine WBC >50 H (0-5) /HPF Ur Squamous Epith Cells 0-2 (0-2) /HPF Urine Bacteria None Seen (None Seen) Hyaline Casts 0-2 (0-2) /LPF Urine Test NEGATIVE (NEGATIVE) Independent Historian Clinical information obtained from an independent historian. History obtained from or confirmed by: EMS External Record Review External record reviewed: Outpatient record, Prior outpatient labs and Prior outpatient radiology Prescription Management I considered prescription management with: Other (Antipsychotic) Chronic Conditions Patient?s care impacted by: Other (Borderline personality disorder, bipolar) Social Determinants Patient?s care significantly limited by Social Determinants of Health including: Other Social Determinant of Health Critical Care Time Critical Care Time Critical Care Time: No Discharge Plan Discharge Clinical Impression: Auditory hallucinations Patient Disposition: Home, Self-Care Instructions: Psychiatric Hallucinations (ED) Additional Instructions: take all of your medications as prescribed follow up with your therapist and psychiatrist Prescriptions: No Action clotrimazole 1 % cream 1 appl topical BID 14 Days Qty: 45 0RF metformin 500 mg tablet 500 mg PO BID pantoprazole 40 mg tablet,delayed release (DR/EC) 40 mg PO DAILY montelukast 10 mg tablet 10 mg PO DAILY lisinopril 5 mg tablet 5 mg PO DAILY mirtazapine 15 mg tablet 7.5 mg PO DAILY lurasidone [Latuda] 20 mg tablet 20 mg PO DAILY Interventions: [place]-Suicide Risk Severity Scale Last Done: 04/22/23 20:08 ED Discharge Assessment Last Done: 04/22/23 20:51 Discharge Date/Time: 04/22/23 20:57
--- NOTE | 2023-04-22 20:53 | MHC.CARE ---
CARE Team did not see this pt as she wanted to return home prior to the assessment. ED provider agreed to discharge the pt without her being seen.
== END 2023-04-22 20:57 | disposition home or self-care (01) ==
PROVIDERS: Emergency Provider Internal Medicine; PCP Nurse Practitioner Family
DX: R44.0 Auditory hallucinations (principal); F41.1 Generalized anxiety disorder; F43.0 Acute stress reaction; F17.210 Nicotine dependence, cigarettes, uncomplicated; Z79.899 Other long term (current) drug therapy; Z71.6 Tobacco abuse counseling
CPT/HCPCS: 80307; 81001; 81025; 87086; 87088; 87186; 99284

== ENCOUNTER 2023-04-23 19:01 | Emergency (ER) | payer MEDICARE, MEDICAID, SELFPAY ==
[2023-04-23 19:12] VITALS: BP 131/83; BP 146/92; PULSE 102; PULSE 95; RESP 17; TEMP 35.9; O2SAT 98; BMI 30.2
--- NOTE | 2023-04-23 19:15 | PC.NURSE ---
late entry- pt [facility] from [facility]. pt overdosed on approx. 30 melatonin. pt reports wanting to go to sleep and not wake up again. pt calm and cooperative. pt changed into hospital attire. belongings secured. 1:[address] pt placed on lead scientist. dr rabago at bedside
--- NOTE | 2023-04-23 19:39 | PC.NURSE ---
Ambulated to bathroom with this RN. Voided urine in toilet. Primary RNs: Anjelica brenner. Given warm blanket upon return to ED Bed.
--- NOTE | 2023-04-23 19:59 | ED_ITS ---
HPI - Psych General Chief Complaint: Psychiatric Symptoms Stated Complaint: SI TOOK 30 MELATONIN PILLS 1 HR AGO Time Seen by Provider: 04/23/23 19:27 Source: patient Mode of arrival: ambulatory Limitations: no limitations History of Present Illness HPI Narrative: Patient depression multiple visits to ER with overdoses and SI. Today she took 30 tablets of melatonin of unknown dose about 1800 complaining of slight nausea and upper abdominal pain no vomiting no diarrhea wanted to take the pulsed further she can not sleep does not want to wake up history of same in the past multiple times Related Data Home Medications Medication Instructions Recorded Confirmed lisinopril 5 mg tablet 5 mg PO DAILY 04/12/23 04/22/23 lurasidone 20 mg tablet (Latuda) 20 mg PO DAILY 04/12/23 04/22/23 metformin 500 mg tablet 500 mg PO BID 04/12/23 04/22/23 mirtazapine 15 mg tablet 7.5 mg PO DAILY 04/12/23 04/22/23 montelukast 10 mg tablet 10 mg PO DAILY 04/12/23 04/22/23 pantoprazole 40 mg tablet,delayed 40 mg PO DAILY 04/12/23 04/22/23 release Previous Rx's Medication Instructions Recorded clotrimazole 1 % topical cream 1 appl topical BID 2 weeks #45 04/12/23 grams Allergies Allergy/AdvReac Type Severity Reaction Status Date / Time azithromycin [AZITHROMYCIN] Allergy Severe Rash Verified 04/06/23 23:57 Fish Containing Products Allergy Severe Anaphylaxis Verified 04/06/23 23:57 codeine [Codeine] Allergy Intermediate Rash Verified 04/06/23 23:57 Penicillins Allergy Intermediate Rash Verified 04/06/23 23:57 prednisone [Prednisone] Allergy Intermediate Rash Verified 04/06/23 23:57 Sulfa (Sulfonamide Allergy Intermediate Rash Verified 04/06/23 23:57 Antibiotics) [Sulfa (Sulfonamides)] ziprasidone [From Geodon] Allergy Intermediate dysuria, Verified 04/06/23 23:57 rash Review of Systems Review of Systems: Yes all other systems are reviewed and are negative [facility] Past Medical History Medical History Acetaminophen overdose Borderline personality disorder Bronchitis Depression Diabetes type 2, controlled Full body hives GERD (gastroesophageal reflux disease) History of attempted suicide History of non-suicidal self-harm Hyperlipidemia Hypomagnesemia Major depression MDD (major depressive disorder), recurrent episode, severe Mood disorder Overdose PTSD (post-traumatic stress disorder) Suicide attempt Suicide attempt by acetaminophen overdose Social History Social History 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 Household Members Other:: [facility] Housing: Other Housing Other:: [facility] Do you presently have visiting nurse or other home services: No Unable to assess alcohol history related to: Unknown Alcohol intake: never Patient Tobacco Use Status: Current everyday Tobacco user Tobacco use type: Cigarette Cigarette Packs Per Day: 1 Cigarettes Per Day: 15 Years Smoked: 22 e-Cigarette/Vaping Use: Never Used Substance Use Type: Marijuana Advance Directives: No Advance Directives Information Provided: Yes service: No Current occupational status: unemployed and disabled Sexual orientation: Don't Know Physical Exam Vital Signs: Vital Signs: Last Vital Signs Temp 98.4 F 04/23/23 21:21 Pulse 76 04/23/23 23:52 Resp 16 04/23/23 23:52 BP 134/90 H 04/23/23 23:52 Pulse Ox 97 04/23/23 23:52 O2 Del Method Room Air 04/23/23 23:52 BMI result Body Mass Index 30.2 Appearance: Alert. Oriented X3. No acute distress. Feel depressed feeling suicidal Eyes: PERRLA, No Nystagmus ENT: Pharynx normal. Oral Mucosa moist Neck: Normal inspection. Neck supple. CVS: Normal heart rate and rhythm. Pulses normal. Respiratory: No respiratory distress. Equal air entry bilateral, no wheezing/rales/rhonchi Abdomen: Soft and nontender. Bowel sounds are present, no mass palpable, no CVA tenderness Skin: Skin warm and dry. Normal skin color. Normal skin turgor. Extremities: No lower extremity edema. No calf tenderness Neuro: Oriented X 3. No motor deficit. No sensory deficit.No cerebellar signs , cranial nerves II-XII intact Medical Decision Making Medical Decision Making MDM Narrative: Patient has frequent ED visits with overdoses , took 30 tablets of metolazone nontoxic dose vitals are stable medically cleared for care team to evaluate the patient Independent Interpretation I performed an independent interpretation of an: EKG Interpretation: Normal sinus rhythm heart rate 93 beats per minute normal interval normal axis no acute ST-T no acute ischemia Discharge Plan Discharge Clinical Impression: Overdose, Depression with suicidal ideation Patient Disposition: Still a Patient Prescriptions: No Action clotrimazole 1 % cream 1 appl topical BID 14 Days Qty: 45 0RF metformin 500 mg tablet 500 mg PO BID pantoprazole 40 mg tablet,delayed release (DR/EC) 40 mg PO DAILY montelukast 10 mg tablet 10 mg PO DAILY lisinopril 5 mg tablet 5 mg PO DAILY mirtazapine 15 mg tablet 7.5 mg PO DAILY lurasidone [Latuda] 20 mg tablet 20 mg PO DAILY
--- NOTE | 2023-04-23 20:00 | ECG_ITS ---
Test Reason : GENERAL MEDICAL Blood Pressure : / mmHG Vent. Rate : 093 BPM Atrial Rate : 093 BPM P-R Int : 212 ms QRS Dur : 086 ms QT Int : 380 ms P-R-T Axes : 060 048 050 degrees QTc Int : 472 ms Sinus rhythm with 1st degree A-V block Otherwise normal ECG When compared with ECG of 19-MAR-2023 15:27, ID interval has increased Referred By: Parish Ruano Electronically Signed By:DONALD HOOKER MD
--- NOTE | 2023-04-23 20:06 | PC.NURSE ---
poison control contacted @ this time. per poison control staff recommendations for electrolytes, LFTs, ASA level, tylenol level, and ekg. this rn made dr rabago aware of recommendations per md pt to be consulted by care team prior to obtaining blood work
[2023-04-23 21:21] VITALS: BP 139/92; PULSE 91; RESP 16; TEMP 36.9; O2SAT 95
--- NOTE | 2023-04-23 22:03 | PC.NURSE ---
Addendum entered by Emma Kaplan 04/24/23 00:45: poison control called back for reassessment of pt status. this rn made poison control staff aware that dr rabago does not want to do recommended labs. per poison control staff. comfort measures should be in place with no additional recommendations Original Note: poison control contacted as a follow up on pt status. per poison control reiterated the importance of obtaining lfts, electrolytes, asa, and tylenol levels. this rn made dr rabago aware of poison control recommendations. per does not want any lab work at this time. pt sleeping. vss
[2023-04-23 23:52] VITALS: BP 134/90; PULSE 76; RESP 16; O2SAT 97
[2023-04-24 02:13] VITALS: BP 121/72; PULSE 76; RESP 16; TEMP 37; O2SAT 97
[2023-04-24 04:46] VITALS: BP 125/74; PULSE 73; RESP 16; O2SAT 97
[2023-04-24 04:46] LABS: Amphetamine Screen Urine Not Detected (Not Detect); Barbiturates, Urine Not Detected (Not Detect); Benzodiazepines Screen Urine Not Detected (Not Detect); Cannabinoid Screen Urine Not Detected (Not Detect); Cocaine Screen Urine Not Detected (Not Detect); Fentanyl, urine POSITIVE (Not Detect); Opiate Screen Urine Not Detected (Not Detect); Phencyclidine Screen Urine Not Detected (Not Detect)
[2023-04-24 07:21] VITALS: BP 114/76; PULSE 75; RESP 16; TEMP 36.8; O2SAT 94
[2023-04-24 07:31] LABS: MANUAL DIFF FLAG NO
[2023-04-24 07:33] LABS: Basophils Percent Auto 0.7 % (0-2); Eosinophils Absolute Auto 0.4 X10*3/uL (0.0-0.4); Eosinophils Percent Auto 6.8 % (0-4); Hematocrit 34.5 % (37.0-47.0); Hemoglobin 11.1 g/dl (12.0-16.0); Imm Gran Abs Auto 0.02 X10*3/uL (0.00-0.03); Imm Gran Pct Auto 0.4 % (0.0-0.4); Lymphocytes Absolute Auto 1.9 X10*3/uL (1.2-4.9); Lymphocytes Percent Auto 34.2 % (20-40); Mean Corpuscular HGB Conc 32.2 g/dl (31.0-35.0); Mean Corpuscular Hemoglobin 28.7 pg (27.0-33.0); Mean Corpuscular Volume 89.1 fL (80.0-98.0); Mean Platelet Volume 9.4 fL (9.4-12.3); Monocytes Absolute Auto 0.5 X10*3/uL (0.1-1.2); Monocytes Percent Auto 9.4 % (2-11); Neutrophils Absolute Auto 2.6 x10*3/uL (2.0-8.3); Neutrophils Percent Auto 48.5 % (45-73); Platelet Count 235 X10*3/uL (160-400); Red Blood Count 3.87 X10*6/uL (4.20-5.50); Red Cell Distribution Width 13.6 % (11.0-16.0); White Blood Count 5.4 X10*3/uL (4.8-10.8)
--- NOTE | 2023-04-24 08:48 | PC.NURSE ---
pt sleeping at this time. pt observer at bedside. VSS.
[2023-04-24 09:52] LABS: Appearance Urine Clear; Color Urine Yellow; Glucose Urine UA Negative (Negative); Leukocyte Esterase Urine Negative (Negative); Nitrite Urine Negative (Negative); PH 5.5 (5.0-9.0); Specific Gravity - Urine <= 1.005 (1.005-1.025); Urine Blood Negative (Negative); Urine Ketones Negative (Negative); Urine Protein Negative (Neg-Trace)
--- NOTE | 2023-04-24 10:36 | PC.NURSE ---
Pt currently calm & cooperative; walking around milieu, appears in NAD. Pt states she is feeling much more awake and is eager to return home. Labs sent. WCTA
[2023-04-24 10:51] LABS: Alanine Aminotransferase 18 U/L (0-31); Albumin Level 4.2 g/dL (3.5-5.0); Alkaline Phosphatase 93 U/L (39-117); Anion Gap 14 (12-20); Aspartate Amino Transferase 19 U/L (5-31); Bilirubin Total 0.3 mg/dL (0.0-1.0); Blood Urea Nitrogen 10 mg/dL (9-16); Calcium 9.6 mg/dL (8.4-10.2); Carbon Dioxide 24 mmol/L (22-29); Chloride 107 mmol/L (96-108); Estimated Glomerular Filt Rate > 60; Glucose Random 125 mg/dL (60-115); Potassium 4.2 mmol/L (3.3-5.1); Sodium 141 mmol/L (135-145); Total Protein 7.1 g/dL (6.5-8.0)
== END 2023-04-24 11:32 | disposition home or self-care (01) ==
PROVIDERS: Internal Medicine; Emergency Provider Emergency Medicine Emergency Medical Services
DX: R45.851 Suicidal ideations (principal); F33.1 Major depressive disorder, recurrent, moderate; R11.2 Nausea with vomiting, unspecified; T50.2X2A Poisoning by carbonic-anhydrase inhibitors, benzothiadiazides and other diuretics, intentional self-harm, initial encounter; R10.13 Epigastric pain; R94.31 Abnormal electrocardiogram [ECG] [EKG]; F17.210 Nicotine dependence, cigarettes, uncomplicated; Y92.9 Unspecified place or not applicable; Z71.6 Tobacco abuse counseling; Z79.899 Other long term (current) drug therapy
CPT/HCPCS: 36415; 80053; 80307; 81003; 85025; 93005; 99284; 99285

== ENCOUNTER → 2023-04-23 20:00 | Outpatient (BNV) | payer MEDICARE, MEDICAID, SELFPAY | PROVIDERS: Emergency Provider Internal Medicine; Visit Provider Internal Medicine Cardiovascular Disease | DX: I44.0 Atrioventricular block, first degree (principal) | CPT/HCPCS: 93010 ==

== ENCOUNTER 2023-04-24 20:23 | Emergency (ER) | payer MEDICARE, MEDICAID, SELFPAY ==
[2023-04-24 20:42] VITALS: BP 106/77; BP 160/84; PULSE 104; PULSE 115; RESP 21; TEMP 36.9; O2SAT 96; O2SAT 98; BMI 36.6
--- NOTE | 2023-04-24 20:55 | PC.NURSE ---
patient was brought in from home complaints of taking a bunch of pills for mental illness patient stated she took the medications to end her life patient stated she does not want to live anymore patient has several abrasions on the left fore are due to patient has a history of cutting patient is unknown of what pills she digested patient is cooperative with staff at this time patient is waiting to be seen by the doctor to be further assessed patient will continue to be monitored for safety until further orders.
[2023-04-24 21:01] VITALS: BP 106/77; PULSE 100; RESP 21; TEMP 36.9; O2SAT 96
--- NOTE | 2023-04-24 21:29 | PC.NURSE ---
patient was changed into hospital attire patient was escorted to the bathroom to be able to void patient was able to give a urine specimen patient will continue to be monitored for safety
--- NOTE | 2023-04-24 21:30 | PC.NURSE ---
security came and checked all belongings and patient belongings was placed in locker 9
--- NOTE | 2023-04-24 21:32 | MHC.CARE ---
Addendum entered by Kait Apodaca, [facility] 04/24/23 21:59: [facility] staff call back and report that pt was also sent on the overnight with her morning meds. Prozac 80mg 4tabs, cogentin 1mg, metformin 500mg, protonix 40mg, lisinopril 5mg tab. Pt admits to taking all of these meds at once, also an unknown PRN. Original Note: CARE Team reaches out to the [facility], who reports that pt went on overnight today to a new boyfriend's home and her meds were packed and given to her. She was sent with night meds only, and she would have come back in the morning. Including remeron 7.5mg 1 tablet, cogentin 1mg 1 tablet, lipitor 10mg 1 tablet, melatonin 3mg 1 tablet, singulair 10mg 1 tablet, trazodone 150mg 1 tablet, prazosin 1mg 4 caps (total 4mg). The staff discouraged her from going, however, pt was determined to go. Staff reports that this is a new relationship.
--- NOTE | 2023-04-24 21:32 | PC.NURSE ---
patient report will be passed on to nurse quesada
--- NOTE | 2023-04-24 21:38 | ED.OVERDOSE ---
HPI - Overdose General Chief Complaint: Overdose Stated Complaint: od, per ems Time Seen by Provider: 04/24/23 21:21 Source: patient Mode of arrival: EMS Limitations: no limitations History of Present Illness HPI Narrative: Patient took her whole day prescribed medication at 19:00 saying that she wanted to . She was seen here yesterday if on overdose of melatonin been here multiple times multiple ED visits multiple overdoses patient with medication include fluoxetine 40 mg Latuda 20 mg metformin 500 mg p.o. diazepam 7.5 mg Protonix 40 mg Related Data Home Medications Medication Instructions Recorded Confirmed lisinopril 5 mg tablet 5 mg PO DAILY 04/12/23 04/24/23 lurasidone 20 mg tablet (Latuda) 20 mg PO DAILY 04/12/23 04/24/23 metformin 500 mg tablet 500 mg PO BID 04/12/23 04/24/23 mirtazapine 15 mg tablet 7.5 mg PO DAILY 04/12/23 04/24/23 montelukast 10 mg tablet 10 mg PO DAILY 04/12/23 04/24/23 pantoprazole 40 mg tablet,delayed 40 mg PO DAILY 04/12/23 04/24/23 release atorvastatin 10 mg tablet 10 mg PO DAILY 04/24/23 04/24/23 fluoxetine 40 mg capsule 40 mg PO BID 04/24/23 04/24/23 nystatin 100,000 unit/gram topical 1 appl topical BID 04/24/23 04/24/23 powder Allergies Allergy/AdvReac Type Severity Reaction Status Date / Time azithromycin [AZITHROMYCIN] Allergy Severe Rash Verified 04/06/23 23:57 Fish Containing Products Allergy Severe Anaphylaxis Verified 04/06/23 23:57 codeine [Codeine] Allergy Intermediate Rash Verified 04/06/23 23:57 Penicillins Allergy Intermediate Rash Verified 04/06/23 23:57 prednisone [Prednisone] Allergy Intermediate Rash Verified 04/06/23 23:57 Sulfa (Sulfonamide Allergy Intermediate Rash Verified 04/06/23 23:57 Antibiotics) [Sulfa (Sulfonamides)] ziprasidone [From Geodon] Allergy Intermediate dysuria, Verified 04/06/23 23:57 rash Review of Systems Review of Systems: Yes all other systems are reviewed and are negative PMFSH Past Medical History Medical History Acetaminophen overdose Borderline personality disorder Bronchitis Depression Diabetes type 2, controlled Full body hives GERD (gastroesophageal reflux disease) History of attempted suicide History of non-suicidal self-harm Hyperlipidemia Hypomagnesemia Major depression MDD (major depressive disorder), recurrent episode, severe Mood disorder Overdose PTSD (post-traumatic stress disorder) Suicide attempt Suicide attempt by acetaminophen overdose Social History Social History 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 Household Members Other:: correction Housing: Other Housing Other:: correction Do you presently have visiting nurse or other home services: No Unable to assess alcohol history related to: Unknown Alcohol intake: never Patient Tobacco Use Status: Current everyday Tobacco user Tobacco use type: Cigarette Cigarette Packs Per Day: 1 Cigarettes Per Day: 15 Years Smoked: 22 Smoked in Last 30 Days: Yes e-Cigarette/Vaping Use: Never Used Use of substances other than those prescribed or required for medical reasons: No Substance Use Type: Marijuana Any prior treatment program specific to substance use: No Advance Directives: No Advance Directives Information Provided: No service: No Current occupational status: unemployed and disabled Sexual orientation: Don't Know Physical Exam Vital Signs: Vital Signs: Last Vital Signs Temp 97.5 F 04/24/23 22:15 Pulse 87 04/24/23 22:15 Resp 20 04/24/23 22:15 BP 148/94 H 04/24/23 22:15 Pulse Ox 96 04/24/23 22:15 O2 Del Method Room Air 04/24/23 22:15 BMI result Body Mass Index 36.6 Appearance: Alert. Oriented X3. No acute distress. Eyes: PERRLA, No Nystagmus ENT: Pharynx normal. Oral Mucosa moist Neck: Normal inspection. Neck supple. CVS: Normal heart rate and rhythm. Pulses normal. Respiratory: No respiratory distress. Equal air entry bilateral, no wheezing/rales/rhonchi Abdomen: Soft and nontender. Bowel sounds are present, no mass palpable, no CVA tenderness Skin: Skin warm and dry. Normal skin color. Normal skin turgor. Extremities: No lower extremity edema. No calf tenderness psych: Depressed with suicidal ideation no hallucinations or delusion Neuro: Oriented X 3. No motor deficit. No sensory deficit.No cerebellar signs , cranial nerves II-XII intact Medical Decision Making Medical Decision Making MDM Narrative: Patient depression with frequent overdosing still feels suicidal get care team to evaluate Lab Data MDM Lab Attestation statement: I reviewed the patient's lab results. 04/24/23 22:20 04/24/23 22:20 Labs: Lab Results 04/24/23 04/24/23 04/24/23 Range/Units 22:20 22:20 22:20 WBC 6.3 (4.8-10.8) X10*3/uL RBC 4.02 L (4.20-5.50) X10*6/uL Hgb 11.5 L (12.0-16.0) g/dl Hct 36.1 L (37.0-47.0) % MCV 89.8 (80.0-98.0) fL MCH 28.6 (27.0-33.0) pg MCHC 31.9 (31.0-35.0) g/dl RDW 13.6 (11.0-16.0) % Plt Count 264 (160-400) X10*3/uL MPV 10.0 (9.4-12.3) fL Immature Gran % (Auto) 0.5 H (0.0-0.4) % Neut % (Auto) 57.7 (45-73) % Lymph % (Auto) 28.4 (20-40) % [place] % (Auto) 7.9 (2-11) % Eos % (Auto) 5.0 H (0-4) % Baso % (Auto) 0.5 (0-2) % Lymph # (Auto) 1.8 (1.2-4.9) X10*3/uL [place] # (Auto) 0.5 (0.1-1.2) X10*3/uL Eos # (Auto) 0.3 (0.0-0.4) X10*3/uL Baso # (Auto) 0.0 (0.0-0.2) X10*3/uL Abs Immat Gran (auto) 0.03 (0.00-0.03) X10*3/uL Absolute Neuts (auto) 3.7 (2.0-8.3) x10*3/uL Absolute Nucleated RBC 0.000 (0.0-0.012) X10*3/uL Nucleated RBC % (auto) 0.0 (0.0-0.2) /100WBC Sodium 141 (135-145) mmol/L Potassium 3.8 (3.3-5.1) mmol/L Chloride 107 (96-108) mmol/L Carbon Dioxide 23 (22-29) mmol/L Anion Gap 15 (12-20) BUN 9 (9-16) mg/dL Creatinine 0.75 (0.5-1.4) mg/dL Estim Creat Clear Calc 110.8 Estimated GFR > 60 Random Glucose 109 (60-115) mg/dL Calcium 9.6 (8.4-10.2) mg/dL Magnesium 1.8 (1.6-2.6) mg/dL Total Bilirubin 0.2 (0.0-1.0) mg/dL AST 20 (5-31) U/L ALT 20 (0-31) U/L Alkaline Phosphatase 101 (39-117) U/L Total Protein 7.4 (6.5-8.0) g/dL Albumin 4.2 (3.5-5.0) g/dL Urine Color Urine Appearance Urine pH (5.0-9.0) Ur Specific [place] (1.005-1.025) Urine Protein (Neg-Trace) mg/dL Urine Glucose (UA) (Negative) mg/dL Urine Ketones (Negative) mg/dL Urine Blood (Negative) Urine Nitrite (Negative) Ur Leukocyte Esterase (Negative) Urine Test (NEGATIVE) Salicylates < 5.0 L (15-30) mg/dL Urine Opiates Screen (Not Detect) Urine Fentanyl Screen (Not Detect) Acetaminophen < 17 (<30) mcg/mL Ur Barbiturates Screen (Not Detect) Ur Phencyclidine Scrn (Not Detect) Ur Amphetamines Screen (Not Detect) U Benzodiazepines Scrn (Not Detect) Urine Cocaine Screen (Not Detect) U Marijuana (THC) Screen (Not Detect) Ethyl Alcohol mg/dL 04/24/23 04/24/23 04/24/23 Range/Units 22:21 22:21 22:21 WBC (4.8-10.8) X10*3/uL RBC (4.20-5.50) X10*6/uL Hgb (12.0-16.0) g/dl Hct (37.0-47.0) % MCV (80.0-98.0) fL MCH (27.0-33.0) pg MCHC (31.0-35.0) g/dl RDW (11.0-16.0) % Plt Count (160-400) X10*3/uL MPV (9.4-12.3) fL Immature Gran % (Auto) (0.0-0.4) % Neut % (Auto) (45-73) % Lymph % (Auto) (20-40) % [place] % (Auto) (2-11) % Eos % (Auto) (0-4) % Baso % (Auto) (0-2) % Lymph # (Auto) (1.2-4.9) X10*3/uL [place] # (Auto) (0.1-1.2) X10*3/uL Eos # (Auto) (0.0-0.4) X10*3/uL Baso # (Auto) (0.0-0.2) X10*3/uL Abs Immat Gran (auto) (0.00-0.03) X10*3/uL Absolute Neuts (auto) (2.0-8.3) x10*3/uL Absolute Nucleated RBC (0.0-0.012) X10*3/uL Nucleated RBC % (auto) (0.0-0.2) /100WBC Sodium (135-145) mmol/L Potassium (3.3-5.1) mmol/L Chloride (96-108) mmol/L Carbon Dioxide (22-29) mmol/L Anion Gap (12-20) BUN (9-16) mg/dL Creatinine (0.5-1.4) mg/dL Estim Creat Clear Calc Estimated GFR Random Glucose (60-115) mg/dL Calcium (8.4-10.2) mg/dL Magnesium (1.6-2.6) mg/dL Total Bilirubin (0.0-1.0) mg/dL AST (5-31) U/L ALT (0-31) U/L Alkaline Phosphatase (39-117) U/L Total Protein (6.5-8.0) g/dL Albumin (3.5-5.0) g/dL Urine Color Yellow Urine Appearance Clear Urine pH 5.5 (5.0-9.0) Ur Specific [place] <= 1.005 (1.005-1.025) Urine Protein Negative (Neg-Trace) mg/dL Urine Glucose (UA) Negative (Negative) mg/dL Urine Ketones Negative (Negative) mg/dL Urine Blood Negative (Negative) Urine Nitrite Negative (Negative) Ur Leukocyte Esterase Negative (Negative) Urine Test (NEGATIVE) Salicylates (15-30) mg/dL Urine Opiates Screen Not Detected (Not Detect) Urine Fentanyl Screen Not Detected (Not Detect) Acetaminophen (<30) mcg/mL Ur Barbiturates Screen Not Detected (Not Detect) Ur Phencyclidine Scrn Not Detected (Not Detect) Ur Amphetamines Screen Not Detected (Not Detect) U Benzodiazepines Scrn Not Detected (Not Detect) Urine Cocaine Screen Not Detected (Not Detect) U Marijuana (THC) Screen Not Detected (Not Detect) Ethyl Alcohol < 10 mg/dL 04/24/23 Range/Units 22:21 WBC (4.8-10.8) X10*3/uL RBC (4.20-5.50) X10*6/uL Hgb (12.0-16.0) g/dl Hct (37.0-47.0) % MCV (80.0-98.0) fL MCH (27.0-33.0) pg MCHC (31.0-35.0) g/dl RDW (11.0-16.0) % Plt Count (160-400) X10*3/uL MPV (9.4-12.3) fL Immature Gran % (Auto) (0.0-0.4) % Neut % (Auto) (45-73) % Lymph % (Auto) (20-40) % [place] % (Auto) (2-11) % Eos % (Auto) (0-4) % Baso % (Auto) (0-2) % Lymph # (Auto) (1.2-4.9) X10*3/uL [place] # (Auto) (0.1-1.2) X10*3/uL Eos # (Auto) (0.0-0.4) X10*3/uL Baso # (Auto) (0.0-0.2) X10*3/uL Abs Immat Gran (auto) (0.00-0.03) X10*3/uL Absolute Neuts (auto) (2.0-8.3) x10*3/uL Absolute Nucleated RBC (0.0-0.012) X10*3/uL Nucleated RBC % (auto) (0.0-0.2) /100WBC Sodium (135-145) mmol/L Potassium (3.3-5.1) mmol/L Chloride (96-108) mmol/L Carbon Dioxide (22-29) mmol/L Anion Gap (12-20) BUN (9-16) mg/dL Creatinine (0.5-1.4) mg/dL Estim Creat Clear Calc Estimated GFR Random Glucose (60-115) mg/dL Calcium (8.4-10.2) mg/dL Magnesium (1.6-2.6) mg/dL Total Bilirubin (0.0-1.0) mg/dL AST (5-31) U/L ALT (0-31) U/L Alkaline Phosphatase (39-117) U/L Total Protein (6.5-8.0) g/dL Albumin (3.5-5.0) g/dL Urine Color Urine Appearance Urine pH (5.0-9.0) Ur Specific [place] (1.005-1.025) Urine Protein (Neg-Trace) mg/dL Urine Glucose (UA) (Negative) mg/dL Urine Ketones (Negative) mg/dL Urine Blood (Negative) Urine Nitrite (Negative) Ur Leukocyte Esterase (Negative) Urine Test NEGATIVE (NEGATIVE) Salicylates (15-30) mg/dL Urine Opiates Screen (Not Detect) Urine Fentanyl Screen (Not Detect) Acetaminophen (<30) mcg/mL Ur Barbiturates Screen (Not Detect) Ur Phencyclidine Scrn (Not Detect) Ur Amphetamines Screen (Not Detect) U Benzodiazepines Scrn (Not Detect) Urine Cocaine Screen (Not Detect) U Marijuana (THC) Screen (Not Detect) Ethyl Alcohol mg/dL Discharge Plan Discharge Clinical Impression: Suicide attempt by multiple drug overdose Patient Disposition: Still a Patient Prescriptions: No Action metformin 500 mg tablet 500 mg PO BID pantoprazole 40 mg tablet,delayed release (DR/EC) 40 mg PO DAILY montelukast 10 mg tablet 10 mg PO DAILY lisinopril 5 mg tablet 5 mg PO DAILY mirtazapine 15 mg tablet 7.5 mg PO DAILY lurasidone [Latuda] 20 mg tablet 20 mg PO DAILY fluoxetine 40 mg capsule 40 mg PO BID atorvastatin 10 mg tablet 10 mg PO DAILY nystatin 100,000 unit/gram powder 1 appl topical BID
--- NOTE | 2023-04-24 22:06 | PC.NURSE ---
Poison control called/spoke with Meaghan, notified that patient took her scheduled morning and HS medication altogether as attempt to kill herself, instructed to have checked CBC, CMP, Magnesium, Tylenol, Salycilates, and EKG. Vital signs assessment every 6 hours especially monitor BP and encourage fluid intake. Provider notified.
[2023-04-24 22:15] VITALS: BP 148/94; PULSE 87; RESP 20; TEMP 36.4; O2SAT 96
[2023-04-24 22:26] LABS: MANUAL DIFF FLAG NO
[2023-04-24 22:35] LABS: Basophils Percent Auto 0.5 % (0-2); Eosinophils Absolute Auto 0.3 X10*3/uL (0.0-0.4); Hematocrit 36.1 % (37.0-47.0); Hemoglobin 11.5 g/dl (12.0-16.0); Imm Gran Abs Auto 0.03 X10*3/uL (0.00-0.03); Imm Gran Pct Auto 0.5 % (0.0-0.4); Lymphocytes Absolute Auto 1.8 X10*3/uL (1.2-4.9); Lymphocytes Percent Auto 28.4 % (20-40); Mean Corpuscular HGB Conc 31.9 g/dl (31.0-35.0); Mean Corpuscular Hemoglobin 28.6 pg (27.0-33.0); Mean Corpuscular Volume 89.8 fL (80.0-98.0); Monocytes Absolute Auto 0.5 X10*3/uL (0.1-1.2); Monocytes Percent Auto 7.9 % (2-11); Neutrophils Absolute Auto 3.7 x10*3/uL (2.0-8.3); Neutrophils Percent Auto 57.7 % (45-73); Platelet Count 264 X10*3/uL (160-400); Red Blood Count 4.02 X10*6/uL (4.20-5.50); Red Cell Distribution Width 13.6 % (11.0-16.0); White Blood Count 6.3 X10*3/uL (4.8-10.8)
[2023-04-24 22:36] LABS: Appearance Urine Clear; Color Urine Yellow; Glucose Urine UA Negative (Negative); Leukocyte Esterase Urine Negative (Negative); Nitrite Urine Negative (Negative); PH 5.5 (5.0-9.0); Specific Gravity - Urine <= 1.005 (1.005-1.025); Urine Blood Negative (Negative); Urine Ketones Negative (Negative); Urine Protein Negative (Neg-Trace)
[2023-04-24 22:43] LABS: Ethanol < 10 mg/dL
[2023-04-24 22:46] LABS: Alanine Aminotransferase 20 U/L (0-31); Albumin Level 4.2 g/dL (3.5-5.0); Alkaline Phosphatase 101 U/L (39-117); Anion Gap 15 (12-20); Aspartate Amino Transferase 20 U/L (5-31); Bilirubin Total 0.2 mg/dL (0.0-1.0); Blood Urea Nitrogen 9 mg/dL (9-16); Calcium 9.6 mg/dL (8.4-10.2); Carbon Dioxide 23 mmol/L (22-29); Chloride 107 mmol/L (96-108); Creatinine Clr Calc Pharmacy 110.8; Estimated Glomerular Filt Rate > 60; Glucose Random 109 mg/dL (60-115); Magnesium 1.8 mg/dL (1.6-2.6); Potassium 3.8 mmol/L (3.3-5.1); Sodium 141 mmol/L (135-145); Total Protein 7.4 g/dL (6.5-8.0)
[2023-04-24 22:47] LABS: Salicylate < 5.0 mg/dL (15-30)
[2023-04-24 22:48] LABS: Amphetamine Screen Urine Not Detected (Not Detect); Barbiturates, Urine Not Detected (Not Detect); Benzodiazepines Screen Urine Not Detected (Not Detect); Cannabinoid Screen Urine Not Detected (Not Detect); Cocaine Screen Urine Not Detected (Not Detect); Fentanyl, urine Not Detected (Not Detect); Opiate Screen Urine Not Detected (Not Detect); Phencyclidine Screen Urine Not Detected (Not Detect)
[2023-04-24 22:53] LABS: UPreg QC Valid YES; Urine Pregnancy NEGATIVE (NEGATIVE)
[2023-04-24 23:03] LABS: Acetaminophen LAB < 17 mcg/mL (<30)
--- NOTE | 2023-04-25 05:35 | MHC.EDTECH ---
EKG documentation delayed as order was put in late by MD and poison control was read results without the EKG documentation. RN AWARE, MADE AWARE.
--- NOTE | 2023-04-25 06:17 | PC.NURSE ---
Patient slept through the night, no distress observed/reported, behavior non concerning, care consult ordered/pending evaluation, med rec completed/pending provider's approval, VSS, labs completed/resulted, poison control updated/cleared the patient, will continue to monitor.
== END 2023-04-25 11:16 | disposition home or self-care (01) ==
PROVIDERS: Emergency Provider Internal Medicine
DX: T42.4X2A Poisoning by benzodiazepines, intentional self-harm, initial encounter (principal); T47.1X2A Poisoning by other antacids and anti-gastric-secretion drugs, intentional self-harm, initial encounter; T38.3X2A Poisoning by insulin and oral hypoglycemic [antidiabetic] drugs, intentional self-harm, initial encounter; Y92.049 Unspecified place in boarding-house as the place of occurrence of the external cause; F31.9 Bipolar disorder, unspecified; R44.0 Auditory hallucinations; F60.3 Borderline personality disorder; F41.9 Anxiety disorder, unspecified; E11.9 Type 2 diabetes mellitus without complications; E78.5 Hyperlipidemia, unspecified; D64.9 Anemia, unspecified; F17.210 Nicotine dependence, cigarettes, uncomplicated; F12.90 Cannabis use, unspecified, uncomplicated; E66.9 Obesity, unspecified; Z68.37 Body mass index [BMI] 37.0-37.9, adult; Z91.51 Personal history of suicidal behavior; Z91.52 Personal history of nonsuicidal self-harm; F43.12 Post-traumatic stress disorder, chronic; Z79.84 Long term (current) use of oral hypoglycemic drugs; Z79.899 Other long term (current) drug therapy
CPT/HCPCS: 36415; 80053; 80143; 80179; 80307; 81003; 81025; 83735; 85025; 99285

== ENCOUNTER 2023-05-04 19:03 | Emergency (ER) | payer MEDICARE, MEDICAID, SELFPAY ==
--- NOTE | ~2023-05-04 | XR_ITS ---
EXAMINATION: XR CHEST CLINICAL INFORMATION: Chest pain. COMPARISON: Chest radiograph 12/15/2022. TECHNIQUE: 2 views of the chest were obtained. FINDINGS: No significant abnormality is noted involving the heart, lungs, mediastinum, bony thorax or soft tissues. XR/XR chest 2V IMPRESSION: Unremarkable examination.
[2023-05-04 20:27] VITALS: BP 127/82; PULSE 115; RESP 18; TEMP 36.9; O2SAT 96; BMI 35.8
--- NOTE | 2023-05-04 20:31 | ED_ITS ---
HPI - General Adult General Chief complaint: General Medical Stated complaint: Chest pain/abd pain/throat pain Source: patient Mode of arrival: ambulatory Limitations: no limitations History of Present Illness HPI narrative: Patient is a 47 year old assigned female at with a history of PTSD, GERD, DM, depression, and border line personality disorder presenting to the emergency department today with chest pain and throat pain. Patient states that she was evaluated at a different hospital and told that it was her anxiety and acid reflux. Patient denies any dizziness, lightheadedness, abdominal pain, nausea, vomiting, fever, chills, blurry vision, double vision, loss of vision, difficulty breathing, shortness of breath, back pain, night sweats, pain with urination, increased urinary frequency, increased urinary urgency, blood in her urine or stool, syncope or a near syncopal episode, recent trauma or falls, bowel incontinence, bladder incontinence, bowel retention, bladder retention, or any other complaints at this time. Onset (ago): week(s) (1) Location: chest Severity: mild Severity scale (1-10): 2 Quality: dull Pain Consistency: constant Relieving factors: none Exacerbating factors: none Associated symptoms: denies other symptoms Treatments prior to arrival: none Related Data Home Medications Medication Instructions Recorded Confirmed lisinopril 5 mg tablet 5 mg PO DAILY 04/12/23 04/24/23 lurasidone 20 mg tablet (Latuda) 20 mg PO DAILY 04/12/23 04/24/23 metformin 500 mg tablet 500 mg PO BID 04/12/23 04/24/23 mirtazapine 15 mg tablet 7.5 mg PO DAILY 04/12/23 04/24/23 montelukast 10 mg tablet 10 mg PO DAILY 04/12/23 04/24/23 pantoprazole 40 mg tablet,delayed 40 mg PO DAILY 04/12/23 04/24/23 release atorvastatin 10 mg tablet 10 mg PO DAILY 04/24/23 04/24/23 fluoxetine 40 mg capsule 40 mg PO BID 04/24/23 04/24/23 nystatin 100,000 unit/gram topical 1 appl topical BID 04/24/23 04/24/23 powder Allergies Allergy/AdvReac Type Severity Reaction Status Date / Time azithromycin [AZITHROMYCIN] Allergy Severe Rash Verified 05/04/23 20:31 Fish Containing Products Allergy Severe Anaphylaxis Verified 05/04/23 20:31 codeine [Codeine] Allergy Intermediate Rash Verified 05/04/23 20:31 Penicillins Allergy Intermediate Rash Verified 05/04/23 20:31 prednisone [Prednisone] Allergy Intermediate Rash Verified 05/04/23 20:31 Sulfa (Sulfonamide Allergy Intermediate Rash Verified 05/04/23 20:31 Antibiotics) [Sulfa (Sulfonamides)] ziprasidone [From Geodon] Allergy Intermediate dysuria, Verified 05/04/23 20:31 rash Review of Systems Constitutional: Constitutional: Reports no additional constitutional complaints, Denies chills, Denies fever(s) and Denies night sweats Eyes: Eyes: Reports no additional eye complaints, Denies blurry vision, Denies change in vision, Denies diplopia, Denies eye discharge, Denies loss of vision and Denies eye pain ENT: Denies dizziness and Reports sore throat Cardiovascular: Cardiovascular: Reports no additional cardiovascular co mplaints, Reports chest pain, Denies lightheadedness, Denies Loss of Consciousness and Denies dyspnea Respiratory: Respiratory: Reports no additional respiratory complaints and Denies dyspnea Gastrointestinal: Gastrointestinal: Reports no additional gastrointestinal complaints, Denies abdominal pain, Denies melena, Denies hematochezia, Denies change in bowel habits and Denies change in stool character Genitourinary: Genitourinary: Denies hematuria, Denies urinary frequency, Denies dysuria, Denies urinary incontinence, Denies urinary hesitancy and Denies urinary urgency Musculoskeletal: Musculoskeletal: Reports no additional musculoskeletal complaints, Denies numbness and Denies tingling Neurologic: Denies dizziness, Denies loss of vision, Denies numbness and Denies tingling Psychiatric: Psychiatric: Reports no additional psychiatric complaints Endocrine: Endocrine: Reports no additional endocrine complaints Hematologic/Lymphatic: Hematologic/Lymphatic: Reports no additional hem atologic/lymphatic complaints Allergic/Immunologic: Allergic/Immunologic: Reports no additional allergic/immunologic complaints [facility] Past Medical History Attestation statement: The following information was validated with the patient. Source: old records reviewed and nursing notes reviewed Medical History Acetaminophen overdose Acetaminophen overdose Acute anxiety Borderline personality disorder Bronchitis Chest pain COVID COVID-19 Depression Diabetes type 2, controlled Dizziness Full body hives GERD (gastroesophageal reflux disease) History of attempted suicide History of non-suicidal self-harm Hyperlipidemia Hypomagnesemia Major depression MDD (major depressive disorder), recurrent episode, severe Mood disorder Overdose PTSD (post-traumatic stress disorder) Suicide attempt Suicide attempt Suicide attempt by acetaminophen overdose UTI (urinary tract infection) Social History Social History 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 Household Members Other:: assisted Housing: Other Housing Other:: assisted Do you presently have visiting nurse or other home services: No Unable to assess alcohol history related to: Unknown Alcohol intake: never Patient Tobacco Use Status: Current everyday Tobacco user Tobacco use type: Cigarette Cigarette Packs Per Day: 1 Cigarettes Per Day: 15 Years Smoked: 22 e-Cigarette/Vaping Use: Never Used Substance Use Type: Marijuana Advance Directives: No Advance Directives Information Provided: Yes service: No Current occupational status: unemployed and disabled Sexual orientation: Don't Know Physical Exam ED Vital Signs: Vital Signs - 24 hr 05/04/23 20:27 Temperature 98.5 F Pulse Rate 115 H Respiratory Rate 18 Blood Pressure 127/82 Pulse Oximetry 96 Oxygen Delivery Method Room Air BMI result Body Mass Index 35.8 Const General: cooperative, no acute distress, alert and awake Nutritional Appearance: well nourished Orientation/consciousness: patient oriented x3 Limitations: no limitations HENMT Head: Yes normal to inspection and Yes atraumatic Ears: hearing grossly normal bilaterally and external ears normal General nose exam: Normal external nose present, no nasal discharge noted and no epistaxis Face and sinus: Yes normal facial exam, No abrasion and No laceration Mouth: Normal oral and palatal mucosa present, no drooling and no muffled voice Eyes General: appearance normal, both eyes and all related structures Periorbital: periorbital findings normal Eyelids: Yes eyelids normal Conjunctivae: conjunctivae normal Pupils: Equal, round and reactive pupils present EOM: EOMs intact bilaterally Neck Neck: Yes normal visual inspection, Yes full ROM and Yes no lymphadenopathy Chest Chest palpation & inspection: normal inspection of the chest Resp Effort & Inspection: normal respiratory effort and able to speak in complete sentences Auscultation: clear to auscultation bilaterally Cardio Rate: regular rate Rhythm: regular rhythm GI Inspection: Yes normal to inspection Neuro General: patient oriented x3 and moves all extremities Cranial nerves: Yes Equal, round and reactive pupils present Cognition (Neuro): normal cognition Motor exam (neuro): 5/5 motor strength present throughout Sensory Exam: Normal double simultaneous stimulation for sensation Coordination: [id number] test normal Extrem General: Yes normal to inspection, Yes full ROM and Yes capillary refill normal Psych Appearance: grossly normal Mental Status: mental status grossly normal Affect: normal affect Attitude: cooperative Thought process: Normal thought process present Thought content: Normal thought content present Insight: Good insight present (Psych) Course Course Course Narrative: RME performed by Nicki Schreiber PA-C. Patient is a 47 year old assigned female at presenting to the emergency department with chest pain. Labs, imaging, swab ordered. Patient placed back in the waiting room pending room availability and results. Medical Decision Making Medical Decision Making [facility] Narrative: Patient is a 47 year old assigned female at with a history of PTSD, GERD, DM, depression, and borderline personality disorder presenting to the emergency department today with chest and throat pain. Patient's physical exam was unremarkable. Patient's blood work was unremarkable. Patient's urine showed no acute process. Patient's EKG was unremarkable. Patient's chest x-ray showed no acute process. Patient eloped from the department before myself or any of the other emergency department providers could explain her physical exam findings, results, treatment, or treatment plan. Differential Diagnosis Differential Diagnoses: The differential diagnosis associated with the presentation includes STEMI NSTEMI Chest pain GERD COVID-19 Admission/Observation Consideration of admission/observation: Escalation of care including admission/observation considered Patient would have been admitted to the hospital had her work up had any findings where hospital admission was appropriate, her clinical presentation warranted hospital admission, and if she hadn't eloped from the department. Lab Data [facility] Lab Attestation statement: I reviewed the patient's lab results. My interpretation of these studies and their corresponding values is that they are grossly normal. 05/04/23 21:14 05/04/23 21:14 Labs: Lab Results 05/04/23 05/04/23 05/04/23 Range/Units 20:34 21:14 21:14 WBC 8.8 (4.8-10.8) X10*3/uL RBC 3.93 L (4.20-5.50) X10*6/uL Hgb 11.2 L (12.0-16.0) g/dl Hct 34.8 L (37.0-47.0) % MCV 88.5 (80.0-98.0) fL MCH 28.5 (27.0-33.0) pg MCHC 32.2 (31.0-35.0) g/dl RDW 14.0 (11.0-16.0) % Plt Count 271 (160-400) X10*3/uL MPV 9.5 (9.4-12.3) fL Immature Gran % (Auto) 0.5 H (0.0-0.4) % Neut % (Auto) 65.2 (45-73) % Lymph % (Auto) 21.1 (20-40) % Desha % (Auto) 8.1 (2-11) % Eos % (Auto) 4.5 H (0-4) % Baso % (Auto) 0.6 (0-2) % Lymph # (Auto) 1.9 (1.2-4.9) X10*3/uL Desha # (Auto) 0.7 (0.1-1.2) X10*3/uL Eos # (Auto) 0.4 (0.0-0.4) X10*3/uL Baso # (Auto) 0.1 (0.0-0.2) X10*3/uL Abs Immat Gran (auto) 0.04 H (0.00-0.03) X10*3/uL Absolute Neuts (auto) 5.7 (2.0-8.3) x10*3/uL Absolute Nucleated RBC 0.000 (0.0-0.012) X10*3/uL Nucleated RBC % (auto) 0.0 (0.0-0.2) /100WBC Sodium 135 (135-145) mmol/L Potassium 3.8 (3.3-5.1) mmol/L Chloride 100 (96-108) mmol/L Carbon Dioxide 25 (22-29) mmol/L Anion Gap 14 (12-20) BUN 9 (9-16) mg/dL Creatinine 0.79 (0.5-1.4) mg/dL Estim Creat Clear Calc 103.9 Estimated GFR > 60 Random Glucose 120 H (60-115) mg/dL Calcium 9.6 (8.4-10.2) mg/dL Magnesium 1.5 L (1.6-2.6) mg/dL Total Bilirubin 0.2 (0.0-1.0) mg/dL AST 17 (5-31) U/L ALT 23 (0-31) U/L Alkaline Phosphatase 112 (39-117) U/L Troponin I High Sens (<3.5-17.0) ng/L Total Protein 7.0 (6.5-8.0) g/dL Albumin 4.2 (3.5-5.0) g/dL Urine Color Yellow Urine Appearance Clear Urine pH 6.0 (5.0-9.0) Ur Specific [place] 1.010 (1.005-1.025) Urine Protein Negative (Neg-Trace) mg/dL Urine Glucose (UA) Negative (Negative) mg/dL Urine Ketones Negative (Negative) mg/dL Urine Blood Negative (Negative) Urine Nitrite Negative (Negative) Ur Leukocyte Esterase Negative (Negative) COVID-19 (NICK) (Negative) COVID-19 Clin Com 05/04/23 05/04/23 Range/Units 21:14 21:14 WBC (4.8-10.8) X10*3/uL RBC (4.20-5.50) X10*6/uL Hgb (12.0-16.0) g/dl Hct (37.0-47.0) % MCV (80.0-98.0) fL MCH (27.0-33.0) pg MCHC (31.0-35.0) g/dl RDW (11.0-16.0) % Plt Count (160-400) X10*3/uL MPV (9.4-12.3) fL Immature Gran % (Auto) (0.0-0.4) % Neut % (Auto) (45-73) % Lymph % (Auto) (20-40) % Desha % (Auto) (2-11) % Eos % (Auto) (0-4) % Baso % (Auto) (0-2) % Lymph # (Auto) (1.2-4.9) X10*3/uL Desha # (Auto) (0.1-1.2) X10*3/uL Eos # (Auto) (0.0-0.4) X10*3/uL Baso # (Auto) (0.0-0.2) X10*3/uL Abs Immat Gran (auto) (0.00-0.03) X10*3/uL Absolute Neuts (auto) (2.0-8.3) x10*3/uL Absolute Nucleated RBC (0.0-0.012) X10*3/uL Nucleated RBC % (auto) (0.0-0.2) /100WBC Sodium (135-145) mmol/L Potassium (3.3-5.1) mmol/L Chloride (96-108) mmol/L Carbon Dioxide (22-29) mmol/L Anion Gap (12-20) BUN (9-16) mg/dL Creatinine (0.5-1.4) mg/dL Estim Creat Clear Calc Estimated GFR Random Glucose (60-115) mg/dL Calcium (8.4-10.2) mg/dL Magnesium (1.6-2.6) mg/dL Total Bilirubin (0.0-1.0) mg/dL AST (5-31) U/L ALT (0-31) U/L Alkaline Phosphatase (39-117) U/L Troponin I High Sens < 2.7 (<3.5-17.0) ng/L Total Protein (6.5-8.0) g/dL Albumin (3.5-5.0) g/dL Urine Color Urine Appearance Urine pH (5.0-9.0) Ur Specific [place] (1.005-1.025) Urine Protein (Neg-Trace) mg/dL Urine Glucose (UA) (Negative) mg/dL Urine Ketones (Negative) mg/dL Urine Blood (Negative) Urine Nitrite (Negative) Ur Leukocyte Esterase (Negative) COVID-19 (NICK) Negative (Negative) COVID-19 Clin Com See Note Independent Interpretation I performed an independent interpretation of an: EKG and Plain X-Ray Interpretation: My interpretation is in agreement with the radiologist's impression of this imaging study. EXAMINATION: XR CHEST CLINICAL INFORMATION: Chest pain. COMPARISON: Chest radiograph 12/15/2022. TECHNIQUE: 2 views of the chest were obtained. FINDINGS: No significant abnormality is noted involving the heart, lungs, mediastinum, bony thorax or soft tissues. XR/XR chest 2V IMPRESSION: Unremarkable examination. Dictated By: Ramila Celis Signed By: Electronically signed by Ramila Celis 05/04/232050 Vent. Rate: 112 BPM ? ? Atrial Rate: 112 BPM P-R Int: 174 ms? QRS Dur: 084 ms QT Int: 354 ms ? ? ? P-R-T Axes: 058 049 048 degrees QTc Int: 483 ms ? Sinus tachycardia Possible Left atrial enlargement Borderline ECG When compared with ECG of 23-APR-2023 20:21, WI interval has decreased DD/ Radiology Impression Discussion of test interpretation with radiology: I have reviewed the radiologist's reading. External Record Review External record reviewed: Other (reviewed all of the patient's previous ED visits) Chronic Conditions Patient?s care impacted by: Diabetes Discharge Plan Discharge Clinical Impression: Chest pain Patient Disposition: Elopement Prescriptions: No Action metformin 500 mg tablet 500 mg PO BID pantoprazole 40 mg tablet,delayed release (DR/EC) 40 mg PO DAILY montelukast 10 mg tablet 10 mg PO DAILY lisinopril 5 mg tablet 5 mg PO DAILY mirtazapine 15 mg tablet 7.5 mg PO DAILY lurasidone [Latuda] 20 mg tablet 20 mg PO DAILY fluoxetine 40 mg capsule 40 mg PO BID atorvastatin 10 mg tablet 10 mg PO DAILY nystatin 100,000 unit/gram powder 1 appl topical BID Discharge Date/Time: 05/05/23 00:54
--- NOTE | 2023-05-04 20:32 | ECG_ITS ---
Test Reason : EPI GASTRIC PAIN Blood Pressure : / mmHG Vent. Rate : 112 BPM Atrial Rate : 112 BPM P-R Int : 174 ms QRS Dur : 084 ms QT Int : 354 ms P-R-T Axes : 058 049 048 degrees QTc Int : 483 ms Sinus tachycardia Possible Left atrial enlargement Borderline ECG When compared with ECG of 23-APR-2023 20:21, [place] interval has decreased Referred By: Nicki Schreiber Electronically Signed By:Fabricio Kay
[2023-05-04 20:44] LABS: Appearance Urine Clear; Color Urine Yellow; Glucose Urine UA Negative (Negative); Leukocyte Esterase Urine Negative (Negative); Nitrite Urine Negative (Negative); Urine Blood Negative (Negative); Urine Ketones Negative (Negative); Urine Protein Negative (Neg-Trace)
--- NOTE | 2023-05-04 21:18 | MHC.EDTECH ---
PATIENT EKG DONE AND WAS READ BY PROVIDER ,BLOOD DRAWN AND COVID SWAB COLLECTED ALL SENT TO LAB .
[2023-05-04 21:19] LABS: MANUAL DIFF FLAG NO
[2023-05-04 21:20] LABS: Basophils Absolute Auto 0.1 X10*3/uL (0.0-0.2); Basophils Percent Auto 0.6 % (0-2); Eosinophils Absolute Auto 0.4 X10*3/uL (0.0-0.4); Eosinophils Percent Auto 4.5 % (0-4); Hematocrit 34.8 % (37.0-47.0); Hemoglobin 11.2 g/dl (12.0-16.0); Imm Gran Abs Auto 0.04 X10*3/uL (0.00-0.03); Imm Gran Pct Auto 0.5 % (0.0-0.4); Lymphocytes Absolute Auto 1.9 X10*3/uL (1.2-4.9); Lymphocytes Percent Auto 21.1 % (20-40); Mean Corpuscular HGB Conc 32.2 g/dl (31.0-35.0); Mean Corpuscular Hemoglobin 28.5 pg (27.0-33.0); Mean Corpuscular Volume 88.5 fL (80.0-98.0); Mean Platelet Volume 9.5 fL (9.4-12.3); Monocytes Absolute Auto 0.7 X10*3/uL (0.1-1.2); Monocytes Percent Auto 8.1 % (2-11); Neutrophils Absolute Auto 5.7 x10*3/uL (2.0-8.3); Neutrophils Percent Auto 65.2 % (45-73); Platelet Count 271 X10*3/uL (160-400); Red Blood Count 3.93 X10*6/uL (4.20-5.50); White Blood Count 8.8 X10*3/uL (4.8-10.8)
[2023-05-04 21:33] LABS: COVID-19 Test Negative (Negative); IDNOW Serial# 08D9AD1C
[2023-05-04 21:35] LABS: Alanine Aminotransferase 23 U/L (0-31); Albumin Level 4.2 g/dL (3.5-5.0); Alkaline Phosphatase 112 U/L (39-117); Anion Gap 14 (12-20); Aspartate Amino Transferase 17 U/L (5-31); Bilirubin Total 0.2 mg/dL (0.0-1.0); Blood Urea Nitrogen 9 mg/dL (9-16); Calcium 9.6 mg/dL (8.4-10.2); Carbon Dioxide 25 mmol/L (22-29); Chloride 100 mmol/L (96-108); Creatinine Clr Calc Pharmacy 103.9; Estimated Glomerular Filt Rate > 60; Glucose Random 120 mg/dL (60-115); Magnesium 1.5 mg/dL (1.6-2.6); Potassium 3.8 mmol/L (3.3-5.1); Sodium 135 mmol/L (135-145)
[2023-05-04 21:43] LABS: Troponin-I High Sensitivity < 2.7 ng/L (<3.5-17.0)
--- NOTE | 2023-05-05 00:42 | PC.NURSE ---
attempted to call patient into ED. pt not in waiting room or outside
--- NOTE | 2023-05-05 00:52 | PC.NURSE ---
second attempt to call patient into ED. No answer in waiting room
== END 2023-05-05 00:54 | disposition left against medical advice (07) ==
PROVIDERS: Physician Assistant Medical; Emergency Provider Emergency Medicine
DX: R07.9 Chest pain, unspecified (principal); R07.0 Pain in throat; E11.9 Type 2 diabetes mellitus without complications; F32.A Depression, unspecified; K21.9 Gastro-esophageal reflux disease without esophagitis; F60.3 Borderline personality disorder; Z20.822 Contact with and (suspected) exposure to COVID-19
CPT/HCPCS: 36415; 71046; 80053; 81003; 83735; 84484; 85025; 87635; 93005; 99283; 99284

== ENCOUNTER → 2023-05-04 20:32 | Outpatient (BNV) | payer MEDICARE, MEDICAID, SELFPAY | PROVIDERS: Emergency Provider Emergency Medicine; Visit Provider Internal Medicine Cardiovascular Disease | DX: R10.13 Epigastric pain (principal) | CPT/HCPCS: 93010 ==

== ENCOUNTER 2023-05-06 21:23 | Emergency (ER) | payer MEDICARE, MEDICAID, SELFPAY ==
--- NOTE | 2023-05-06 22:02 | ED.GENADULT ---
HPI - General Adult General Chief complaint: Psychiatric Symptoms Stated complaint: crisis Grp home, SI, self inflicted cuts on L arm Time Seen by Provider: 05/06/23 22:02 Source: patient and EMS Mode of arrival: EMS Limitations: no limitations History of Present Illness HPI narrative: Patient is a 47 year old assigned female at with a history of PTSD, depression, GERD, borderline personality disorder, and DM presenting to the emergency department today with self harm lacerations to her left forearm, hallucinations, and SI. Patient states that she feel suicidal and is having more thoughts of suicide lately. Patient denies any dizziness, lightheadedness, abdominal pain, nausea, vomiting, fever, chills, blurry vision, double vision, loss of vision, chest pain, difficulty breathing, shortness of breath, back pain, night sweats, pain with urination, increased urinary frequency, increased urinary urgency, blood in her urine or stool, syncope or a near syncopal episode, bowel incontinence, bladder incontinence, bowel retention, bladder retention, or any other complaints at this time. Severity: mild Severity scale (1-10): 2 Relieving factors: none Exacerbating factors: none Associated symptoms: denies other symptoms Treatments prior to arrival: none Related Data Home Medications Medication Instructions Recorded Confirmed lisinopril 5 mg tablet 5 mg PO DAILY 04/12/23 04/24/23 lurasidone 20 mg tablet (Latuda) 20 mg PO DAILY 04/12/23 04/24/23 metformin 500 mg tablet 500 mg PO BID 04/12/23 04/24/23 mirtazapine 15 mg tablet 7.5 mg PO DAILY 04/12/23 04/24/23 montelukast 10 mg tablet 10 mg PO DAILY 04/12/23 04/24/23 pantoprazole 40 mg tablet,delayed 40 mg PO DAILY 04/12/23 04/24/23 release atorvastatin 10 mg tablet 10 mg PO DAILY 04/24/23 04/24/23 fluoxetine 40 mg capsule 40 mg PO BID 04/24/23 04/24/23 nystatin 100,000 unit/gram topical 1 appl topical BID 04/24/23 04/24/23 powder Allergies Allergy/AdvReac Type Severity Reaction Status Date / Time azithromycin [AZITHROMYCIN] Allergy Severe Rash Verified 05/04/23 20:31 Fish Containing Products Allergy Severe Anaphylaxis Verified 07/21/23 20:31 codeine [Codeine] Allergy Intermediate Rash Verified 05/04/23 20:31 Penicillins Allergy Intermediate Rash Verified 05/04/23 20:31 prednisone [Prednisone] Allergy Intermediate Rash Verified 05/04/23 20:31 Sulfa (Sulfonamide Allergy Intermediate Rash Verified 05/04/23 20:31 Antibiotics) [Sulfa (Sulfonamides)] ziprasidone [From Geodon] Allergy Intermediate dysuria, Verified 05/04/23 20:31 rash Review of Systems Constitutional: Constitutional: Reports no additional constitutional complaints, Denies chills, Denies fever(s) and Denies night sweats Eyes: Eyes: Reports no additional eye complaints, Denies blurry vision, Denies change in vision, Denies diplopia, Denies eye discharge, Denies loss of vision and Denies eye pain ENT: Denies dizziness Cardiovascular: Cardiovascular: Reports no additional cardiovascular complaints, Denies chest pain, Denies lightheadedness, Denies Loss of Consciousness and Denies dyspnea Respiratory: Respiratory: Reports no additional respiratory complaints and Denies dyspnea Gastrointestinal: Gastrointestinal: Reports no additional gastrointestinal complaints, Denies abdominal pain, Denies melena, Denies hematochezia, Denies change in bowel habits and Denies change in stool character Genitourinary: Genitourinary: Denies hematuria, Denies urinary frequency, Denies dysuria, Denies urinary incontinence, Denies urinary hesitancy and Denies urinary urgency Musculoskeletal: Musculoskeletal: Reports no additional musculoskeletal complaints, Denies numbness and Denies tingling Integumentary/Breasts: Comments: self-harm lacerations to left forearm Neurologic: Denies dizziness, Denies loss of vision, Denies numbness and Denies tingling Psychiatric: Psychiatric: Reports no additional psychiatric complaints Endocrine: Endocrine: Reports no additional endocrine complaints Hematologic/Lymphatic: Hematologic/Lymphatic: Reports no additional hematologic/lymphatic complaints Allergic/Immunologic: Allergic/Immunologic: Reports no additional allergic/immunologic complaints PMFSH Past Medical History Attestation statement: The following information was validated with the patient. Source: old records reviewed and nursing notes reviewed Medical History Acetaminophen overdose Acetaminophen overdose Acute anxiety Borderline personality disorder Bronchitis Chest pain COVID COVID-19 Depression Diabetes type 2, controlled Dizziness Full body hives GERD (gastroesophageal reflux disease) History of attempted suicide History of non-suicidal self-harm Hyperlipidemia Hypomagnesemia Major depression MDD (major depressive disorder), recurrent episode, severe Mood disorder Overdose PTSD (post-traumatic stress disorder) Suicide attempt Suicide attempt Suicide attempt by acetaminophen overdose UTI (urinary tract infection) Social History Social History 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 Household Members Other:: assisted Housing: Other Housing Other:: assisted Do you presently have visiting nurse or other home services: No Unable to assess alcohol history related to: Unknown Alcohol intake: never Patient Tobacco Use Status: Current everyday Tobacco user Tobacco use type: Cigarette Cigarette Packs Per Day: 1 Cigarettes Per Day: 15 Years Smoked: 22 Smoked in Last 30 Days: No e-Cigarette/Vaping Use: Never Used Use of substances other than those prescribed or required for medical reasons: No Substance Use Type: Marijuana Advance Directives: No Advance Directives Information Provided: No service: No Current occupational status: unemployed and disabled Sexual orientation: Don't Know Physical Exam ED Vital Signs: Vital Signs - 24 hr 05/06/23 23:11 Temperature 97.8 F Pulse Rate 102 H Respiratory Rate 18 Blood Pressure 147/79 H Pulse Oximetry 95 Oxygen Delivery Method Room Air BMI result Body Mass Index 37.4 Const General: cooperative, no acute distress, alert and awake Nutritional Appearance: well nourished Orientation/consciousness: patient oriented x3 Limitations: no limitations HENMT Head: Yes normal to inspection and Yes atraumatic Ears: hearing grossly normal bilaterally and external ears normal General nose exam: Normal external nose present, no nasal discharge noted and no epistaxis Face and sinus: Yes normal facial exam, No abrasion and No laceration Mouth: Normal oral and palatal mucosa present, no drooling and no muffled voice Eyes General: appearance normal, both eyes and all related structures Periorbital: periorbital findings normal Eyelids: Yes eyelids normal Conjunctivae: conjunctivae normal Pupils: Equal, round and reactive pupils present EOM: EOMs intact bilaterally Neck Neck: Yes normal visual inspection, Yes full ROM and Yes no lymphadenopathy Chest Chest palpation & inspection: normal inspection of the chest Resp Effort & Inspection: normal respiratory effort and able to speak in complete sentences GI Inspection: Yes normal to inspection Neuro General: patient oriented x3 and moves all extremities Cranial nerves: Yes Equal, round and reactive pupils present Cognition (Neuro): normal cognition Motor exam (neuro): 5/5 motor strength present throughout Sensory Exam: Normal double simultaneous stimulation for sensation Coordination: [id number] test normal Extrem Other: superficial lacerations to the left forearm, no active bleeding. Bilateral forearm self-harm scars. General: Yes full ROM and Yes capillary refill normal Psych Appearance: grossly normal Mental Status: mental status grossly normal Affect: normal affect Attitude: cooperative Thought process: Normal thought process present Thought content: Suicidality present Medical Decision Making Medical Decision Making [facility] Narrative: Patient is a 47 year old assigned female at with a history of PTSD, GERD, DM, depression, and borderline personality disorder presenting to the emergency department today with left forearm self-harm lacerations, suicidal ideation, and increased hallucinations. Patient's physical exam was as noted in the physical exam portion of this chart. Patient's blood work was unremarkable. Patient's urine showed no acute process. Patient's EKG was unremarkable. I explained my physical exam findings as well as all test results to the patient. I answered all questions asked by the patient. Patient is currently awaiting evaluation by the CARE team. Patient's disposition will depend on the CARE team evaluation. Differential Diagnosis Differential Diagnoses: The differential diagnosis associated with the presentation includes Suicidal ideation Self-harm Depression Admission/Observation Consideration of admission/observation: Escalation of care including admission/observation considered Patient's disposition will be determined after the CARE team has evaluated the patient. Lab Data [facility] Lab Attestation statement: I reviewed the patient's lab results. My interpretation of these studies and their corresponding values is that they are grossly normal. 05/06/23 23:20 05/06/23 23:20 Labs: Lab Results 05/06/23 05/06/23 05/06/23 Range/Units 22:16 22:16 22:16 WBC (4.8-10.8) X10*3/uL RBC (4.20-5.50) X10*6/uL Hgb (12.0-16.0) g/dl Hct (37.0-47.0) % MCV (80.0-98.0) fL MCH (27.0-33.0) pg MCHC (31.0-35.0) g/dl RDW (11.0-16.0) % Plt Count (160-400) X10*3/uL MPV (9.4-12.3) fL Immature Gran % (Auto) (0.0-0.4) % Neut % (Auto) (45-73) % Lymph % (Auto) (20-40) % [place] % (Auto) (2-11) % Eos % (Auto) (0-4) % Baso % (Auto) (0-2) % Lymph # (Auto) (1.2-4.9) X10*3/uL [place] # (Auto) (0.1-1.2) X10*3/uL Eos # (Auto) (0.0-0.4) X10*3/uL Baso # (Auto) (0.0-0.2) X10*3/uL Abs Immat Gran (auto) (0.00-0.03) X10*3/uL Absolute Neuts (auto) (2.0-8.3) x10*3/uL Absolute Nucleated RBC (0.0-0.012) X10*3/uL Nucleated RBC % (auto) (0.0-0.2) /100WBC Sodium (135-145) mmol/L Potassium (3.3-5.1) mmol/L Chloride (96-108) mmol/L Carbon Dioxide (22-29) mmol/L Anion Gap (12-20) BUN (9-16) mg/dL Creatinine (0.5-1.4) mg/dL Estim Creat Clear Calc Estimated GFR Random Glucose (60-115) mg/dL Calcium (8.4-10.2) mg/dL Total Bilirubin (0.0-1.0) mg/dL AST (5-31) U/L ALT (0-31) U/L Alkaline Phosphatase (39-117) U/L Total Protein (6.5-8.0) g/dL Albumin (3.5-5.0) g/dL Urine Color Yellow Urine Appearance Clear Urine pH 7.0 (5.0-9.0) Ur Specific [place] <= 1.005 (1.005-1.025) Urine Protein Negative (Neg-Trace) mg/dL Urine Glucose (UA) Negative (Negative) mg/dL Urine Ketones Negative (Negative) mg/dL Urine Blood Negative (Negative) Urine Nitrite Negative (Negative) Ur Leukocyte Esterase Negative (Negative) Urine Test NEGATIVE (NEGATIVE) Urine Opiates Screen Not Detected (Not Detect) Urine Fentanyl Screen Not Detected (Not Detect) Acetaminophen (<30) mcg/mL Ur Barbiturates Screen Not Detected (Not Detect) Ur Phencyclidine Scrn Not Detected (Not Detect) Ur Amphetamines Screen Not Detected (Not Detect) U Benzodiazepines Scrn Not Detected (Not Detect) Urine Cocaine Screen Not Detected (Not Detect) U Marijuana (THC) Screen Not Detected (Not Detect) Ethyl Alcohol mg/dL COVID-19 (NICK) (Negative) COVID-19 Clin Com 05/06/23 05/06/23 05/06/23 Range/Units 22:19 23:20 23:20 WBC 6.9 (4.8-10.8) X10*3/uL RBC 3.51 L (4.20-5.50) X10*6/uL Hgb 10.2 L (12.0-16.0) g/dl Hct 31.4 L (37.0-47.0) % MCV 89.5 (80.0-98.0) fL MCH 29.1 (27.0-33.0) pg MCHC 32.5 (31.0-35.0) g/dl RDW 14.2 (11.0-16.0) % Plt Count 233 (160-400) X10*3/uL MPV 9.5 (9.4-12.3) fL Immature Gran % (Auto) 0.4 (0.0-0.4) % Neut % (Auto) 58.0 (45-73) % Lymph % (Auto) 25.8 (20-40) % [place] % (Auto) 9.7 (2-11) % Eos % (Auto) 5.5 H (0-4) % Baso % (Auto) 0.6 (0-2) % Lymph # (Auto) 1.8 (1.2-4.9) X10*3/uL [place] # (Auto) 0.7 (0.1-1.2) X10*3/uL Eos # (Auto) 0.4 (0.0-0.4) X10*3/uL Baso # (Auto) 0.0 (0.0-0.2) X10*3/uL Abs Immat Gran (auto) 0.03 (0.00-0.03) X10*3/uL Absolute Neuts (auto) 4.0 (2.0-8.3) x10*3/uL Absolute Nucleated RBC 0.000 (0.0-0.012) X10*3/uL Nucleated RBC % (auto) 0.0 (0.0-0.2) /100WBC Sodium 138 (135-145) mmol/L Potassium 3.7 (3.3-5.1) mmol/L Chloride 104 (96-108) mmol/L Carbon Dioxide 26 (22-29) mmol/L Anion Gap 12 (12-20) BUN 11 (9-16) mg/dL Creatinine 0.73 (0.5-1.4) mg/dL Estim Creat Clear Calc 111.2 Estimated GFR > 60 Random Glucose 95 (60-115) mg/dL Calcium 8.8 D (8.4-10.2) mg/dL Total Bilirubin 0.2 (0.0-1.0) mg/dL AST 14 (5-31) U/L ALT 16 (0-31) U/L Alkaline Phosphatase 110 (39-117) U/L Total Protein 6.3 L (6.5-8.0) g/dL Albumin 3.8 (3.5-5.0) g/dL Urine Color Urine Appearance Urine pH (5.0-9.0) Ur Specific [place] (1.005-1.025) Urine Protein (Neg-Trace) mg/dL Urine Glucose (UA) (Negative) mg/dL Urine Ketones (Negative) mg/dL Urine Blood (Negative) Urine Nitrite (Negative) Ur Leukocyte Esterase (Negative) Urine Test (NEGATIVE) Urine Opiates Screen (Not Detect) Urine Fentanyl Screen (Not Detect) Acetaminophen (<30) mcg/mL Ur Barbiturates Screen (Not Detect) Ur Phencyclidine Scrn (Not Detect) Ur Amphetamines Screen (Not Detect) U Benzodiazepines Scrn (Not Detect) Urine Cocaine Screen (Not Detect) U Marijuana (THC) Screen (Not Detect) Ethyl Alcohol < 10 mg/dL COVID-19 (NICK) Negative (Negative) COVID-19 Clin Com See Note 05/06/23 Range/Units 23:20 WBC (4.8-10.8) X10*3/uL RBC (4.20-5.50) X10*6/uL Hgb (12.0-16.0) g/dl Hct (37.0-47.0) % MCV (80.0-98.0) fL MCH (27.0-33.0) pg MCHC (31.0-35.0) g/dl RDW (11.0-16.0) % Plt Count (160-400) X10*3/uL MPV (9.4-12.3) fL Immature Gran % (Auto) (0.0-0.4) % Neut % (Auto) (45-73) % Lymph % (Auto) (20-40) % [place] % (Auto) (2-11) % Eos % (Auto) (0-4) % Baso % (Auto) (0-2) % Lymph # (Auto) (1.2-4.9) X10*3/uL [place] # (Auto) (0.1-1.2) X10*3/uL Eos # (Auto) (0.0-0.4) X10*3/uL Baso # (Auto) (0.0-0.2) X10*3/uL Abs Immat Gran (auto) (0.00-0.03) X10*3/uL Absolute Neuts (auto) (2.0-8.3) x10*3/uL Absolute Nucleated RBC (0.0-0.012) X10*3/uL Nucleated RBC % (auto) (0.0-0.2) /100WBC Sodium (135-145) mmol/L Potassium (3.3-5.1) mmol/L Chloride (96-108) mmol/L Carbon Dioxide (22-29) mmol/L Anion Gap (12-20) BUN (9-16) mg/dL Creatinine (0.5-1.4) mg/dL Estim Creat Clear Calc Estimated GFR Random Glucose (60-115) mg/dL Calcium (8.4-10.2) mg/dL Total Bilirubin (0.0-1.0) mg/dL AST (5-31) U/L ALT (0-31) U/L Alkaline Phosphatase (39-117) U/L Total Protein (6.5-8.0) g/dL Albumin (3.5-5.0) g/dL Urine Color Urine Appearance Urine pH (5.0-9.0) Ur Specific [place] (1.005-1.025) Urine Protein (Neg-Trace) mg/dL Urine Glucose (UA) (Negative) mg/dL Urine Ketones (Negative) mg/dL Urine Blood (Negative) Urine Nitrite (Negative) Ur Leukocyte Esterase (Negative) Urine Test (NEGATIVE) Urine Opiates Screen (Not Detect) Urine Fentanyl Screen (Not Detect) Acetaminophen < 17 (<30) mcg/mL Ur Barbiturates Screen (Not Detect) Ur Phencyclidine Scrn (Not Detect) Ur Amphetamines Screen (Not Detect) U Benzodiazepines Scrn (Not Detect) Urine Cocaine Screen (Not Detect) U Marijuana (THC) Screen (Not Detect) Ethyl Alcohol mg/dL COVID-19 (NICK) (Negative) COVID-19 Clin Com Independent Interpretation I performed an independent interpretation of an: EKG Interpretation: Vent. Rate: 093 BPM ? ? Atrial Rate: 093 BPM P-R Int: 192 ms? QRS Dur: 086 ms QT Int: 390 ms ? ? ? P-R-T Axes: 065 052 052 degrees QTc Int: 484 ms ? Normal sinus rhythm Prolonged QT Abnormal ECG When compared with ECG of 04-MAY-2023 21:07, No significant change was found DD/ [id number] Independent Historian Clinical information obtained from an independent historian. History obtained from or confirmed by: EMS (EMS provided additional history and confirmed the history provided by the patient.) External Record Review External record reviewed: Other (reviewed the previous ED visits.) Discharge Plan Discharge Clinical Impression: Feeling suicidal Patient Disposition: Still a Patient Prescriptions: No Action metformin 500 mg tablet 500 mg PO BID pantoprazole 40 mg tablet,delayed release (DR/EC) 40 mg PO DAILY montelukast 10 mg tablet 10 mg PO DAILY lisinopril 5 mg tablet 5 mg PO DAILY mirtazapine 15 mg tablet 7.5 mg PO DAILY lurasidone [Latuda] 20 mg tablet 20 mg PO DAILY fluoxetine 40 mg capsule 40 mg PO BID atorvastatin 10 mg tablet 10 mg PO DAILY nystatin 100,000 unit/gram powder 1 appl topical BID Interventions: [place]-Suicide Risk Severity Scale Last Done: 05/07/23 00:14
--- NOTE | 2023-05-06 22:03 | ECG_ITS ---
Test Reason : MEDICAL CLEARANCE Blood Pressure : / mmHG Vent. Rate : 093 BPM Atrial Rate : 093 BPM P-R Int : 192 ms QRS Dur : 086 ms QT Int : 390 ms P-R-T Axes : 065 052 052 degrees QTc Int : 484 ms Normal sinus rhythm Prolonged QT Abnormal ECG When compared with ECG of 04-MAY-2023 21:07, No significant change was found Referred By: Nicki Schreiber Electronically Signed By:DONALD HOOKER MD
[2023-05-06 22:30] LABS: Appearance Urine Clear; Color Urine Yellow; Glucose Urine UA Negative (Negative); Leukocyte Esterase Urine Negative (Negative); Nitrite Urine Negative (Negative); Specific Gravity - Urine <= 1.005 (1.005-1.025); Urine Blood Negative (Negative); Urine Ketones Negative (Negative); Urine Protein Negative (Neg-Trace)
[2023-05-06 22:32] LABS: UPreg QC Valid YES; Urine Pregnancy NEGATIVE (NEGATIVE)
[2023-05-06 22:41] LABS: COVID-19 Test Negative (Negative); IDNOW Serial# BCCEAD1C
[2023-05-06 22:52] LABS: Amphetamine Screen Urine Not Detected (Not Detect); Barbiturates, Urine Not Detected (Not Detect); Benzodiazepines Screen Urine Not Detected (Not Detect); Cannabinoid Screen Urine Not Detected (Not Detect); Cocaine Screen Urine Not Detected (Not Detect); Fentanyl, urine Not Detected (Not Detect); Opiate Screen Urine Not Detected (Not Detect); Phencyclidine Screen Urine Not Detected (Not Detect)
[2023-05-06 23:11] VITALS: BP 147/79; BP 160/100; PULSE 102; PULSE 103; RESP 18; TEMP 36.6; O2SAT 95; O2SAT 98; BMI 37.4
[2023-05-06 23:25] LABS: MANUAL DIFF FLAG NO
[2023-05-06 23:33] LABS: Basophils Percent Auto 0.6 % (0-2); Eosinophils Absolute Auto 0.4 X10*3/uL (0.0-0.4); Eosinophils Percent Auto 5.5 % (0-4); Hematocrit 31.4 % (37.0-47.0); Hemoglobin 10.2 g/dl (12.0-16.0); Imm Gran Abs Auto 0.03 X10*3/uL (0.00-0.03); Imm Gran Pct Auto 0.4 % (0.0-0.4); Lymphocytes Absolute Auto 1.8 X10*3/uL (1.2-4.9); Lymphocytes Percent Auto 25.8 % (20-40); Mean Corpuscular HGB Conc 32.5 g/dl (31.0-35.0); Mean Corpuscular Hemoglobin 29.1 pg (27.0-33.0); Mean Corpuscular Volume 89.5 fL (80.0-98.0); Mean Platelet Volume 9.5 fL (9.4-12.3); Monocytes Absolute Auto 0.7 X10*3/uL (0.1-1.2); Monocytes Percent Auto 9.7 % (2-11); Platelet Count 233 X10*3/uL (160-400); Red Blood Count 3.51 X10*6/uL (4.20-5.50); Red Cell Distribution Width 14.2 % (11.0-16.0); White Blood Count 6.9 X10*3/uL (4.8-10.8)
[2023-05-06 23:46] LABS: Acetaminophen LAB < 17 mcg/mL (<30); Alanine Aminotransferase 16 U/L (0-31); Albumin Level 3.8 g/dL (3.5-5.0); Alkaline Phosphatase 110 U/L (39-117); Anion Gap 12 (12-20); Aspartate Amino Transferase 14 U/L (5-31); Bilirubin Total 0.2 mg/dL (0.0-1.0); Blood Urea Nitrogen 11 mg/dL (9-16); Calcium 8.8 mg/dL (8.4-10.2); Carbon Dioxide 26 mmol/L (22-29); Chloride 104 mmol/L (96-108); Creatinine Clr Calc Pharmacy 111.2; Estimated Glomerular Filt Rate > 60; Ethanol < 10 mg/dL; Glucose Random 95 mg/dL (60-115); Potassium 3.7 mmol/L (3.3-5.1); Sodium 138 mmol/L (135-145); Total Protein 6.3 g/dL (6.5-8.0)
--- NOTE | 2023-05-07 07:59 | PC.NURSE ---
care team at bedside with pt. pt aware of plan of care.
--- NOTE | 2023-05-07 08:03 | PC.NURSE ---
pt is at rn station, drinking coffee, denies any si/hi. pt to be d/c home this am.
[2023-05-07 08:28] VITALS: BP 155/89; PULSE 92; RESP 12; TEMP 36; O2SAT 95
--- NOTE | 2023-05-07 08:28 | PC.NURSE ---
pt is a/o x 4 no sob/ag noted speaks in full sentences. denies any si/hi. pt to be d/c'd home.
== END 2023-05-07 08:37 | disposition home or self-care (01) ==
PROVIDERS: Physician Assistant Medical; Emergency Provider Emergency Medicine; PCP Nurse Practitioner Family
DX: R45.851 Suicidal ideations (principal); Z20.822 Contact with and (suspected) exposure to COVID-19; F31.9 Bipolar disorder, unspecified; R44.0 Auditory hallucinations; F41.9 Anxiety disorder, unspecified; F60.3 Borderline personality disorder; F43.12 Post-traumatic stress disorder, chronic; E11.9 Type 2 diabetes mellitus without complications; K21.9 Gastro-esophageal reflux disease without esophagitis; E78.5 Hyperlipidemia, unspecified; D64.9 Anemia, unspecified; E66.9 Obesity, unspecified; Z68.37 Body mass index [BMI] 37.0-37.9, adult; F17.210 Nicotine dependence, cigarettes, uncomplicated; F12.90 Cannabis use, unspecified, uncomplicated; Z91.51 Personal history of suicidal behavior; Z91.52 Personal history of nonsuicidal self-harm; Z79.84 Long term (current) use of oral hypoglycemic drugs; Z79.899 Other long term (current) drug therapy
CPT/HCPCS: 80053; 80143; 80307; 81003; 81025; 85025; 87635; 93005; 99285

== ENCOUNTER → 2023-05-06 22:03 | Outpatient (BNV) | payer MEDICARE, MEDICAID, SELFPAY | PROVIDERS: Emergency Provider Emergency Medicine; PCP Nurse Practitioner Family; Visit Provider Internal Medicine Cardiovascular Disease | DX: I45.81 Long QT syndrome (principal) | CPT/HCPCS: 93010 ==

== ENCOUNTER 2023-05-09 19:12 | Emergency (ER) | payer MEDICARE, MEDICAID, SELFPAY ==
[2023-05-09 19:24] VITALS: BMI 36.3
[2023-05-09 19:25] VITALS: BP 140/90; PULSE 110; RESP 16; TEMP 36.2; O2SAT 100
[2023-05-09 20:16] LABS: MANUAL DIFF FLAG NO
[2023-05-09 20:17] LABS: Basophils Absolute Auto 0.1 X10*3/uL (0.0-0.2); Basophils Percent Auto 0.7 % (0-2); Eosinophils Absolute Auto 0.4 X10*3/uL (0.0-0.4); Eosinophils Percent Auto 5.7 % (0-4); Hematocrit 35.4 % (37.0-47.0); Hemoglobin 11.3 g/dl (12.0-16.0); Imm Gran Abs Auto 0.04 X10*3/uL (0.00-0.03); Imm Gran Pct Auto 0.5 % (0.0-0.4); Lymphocytes Absolute Auto 1.7 X10*3/uL (1.2-4.9); Lymphocytes Percent Auto 22.9 % (20-40); Mean Corpuscular HGB Conc 31.9 g/dl (31.0-35.0); Mean Corpuscular Hemoglobin 28.9 pg (27.0-33.0); Mean Corpuscular Volume 90.5 fL (80.0-98.0); Mean Platelet Volume 9.3 fL (9.4-12.3); Monocytes Absolute Auto 0.5 X10*3/uL (0.1-1.2); Monocytes Percent Auto 6.9 % (2-11); Neutrophils Absolute Auto 4.7 x10*3/uL (2.0-8.3); Neutrophils Percent Auto 63.3 % (45-73); Platelet Count 284 X10*3/uL (160-400); Red Blood Count 3.91 X10*6/uL (4.20-5.50); Red Cell Distribution Width 14.3 % (11.0-16.0); White Blood Count 7.4 X10*3/uL (4.8-10.8)
[2023-05-09 20:29] LABS: Appearance Urine Clear; Color Urine Yellow; Glucose Urine UA Negative (Negative); Leukocyte Esterase Urine Small (1+) (Negative); Nitrite Urine Negative (Negative); Specific Gravity - Urine <= 1.005 (1.005-1.025); UMIC TRIGGER UA YES; Urine Blood Negative (Negative); Urine Ketones Negative (Negative); Urine Protein Negative (Neg-Trace)
[2023-05-09 20:33] LABS: Bacteria Urine 1+ (None Seen); Hyaline Casts Urine 0-2 /LPF (0-2); RBC Urine 0-2 /HPF (0-2)
[2023-05-09 20:39] LABS: Amphetamine Screen Urine Not Detected (Not Detect); Barbiturates, Urine Not Detected (Not Detect); Benzodiazepines Screen Urine Not Detected (Not Detect); Cannabinoid Screen Urine Not Detected (Not Detect); Cocaine Screen Urine Not Detected (Not Detect); Fentanyl, urine Not Detected (Not Detect); Opiate Screen Urine Not Detected (Not Detect); Phencyclidine Screen Urine Not Detected (Not Detect)
[2023-05-09 20:53] LABS: Acetaminophen LAB < 17 mcg/mL (<30); Alanine Aminotransferase 15 U/L (0-31); Albumin Level 4.2 g/dL (3.5-5.0); Alkaline Phosphatase 117 U/L (39-117); Anion Gap 18 (12-20); Aspartate Amino Transferase 16 U/L (5-31); Bilirubin Total 0.1 mg/dL (0.0-1.0); Blood Urea Nitrogen 8 mg/dL (9-16); Calcium 8.7 mg/dL (8.4-10.2); Carbon Dioxide 18 mmol/L (22-29); Chloride 107 mmol/L (96-108); Creatinine Clr Calc Pharmacy 99.6; Estimated Glomerular Filt Rate > 60; Ethanol < 10 mg/dL; Glucose Random 148 mg/dL (60-115); Potassium 3.6 mmol/L (3.3-5.1); Salicylate < 5.0 mg/dL (15-30); Sodium 139 mmol/L (135-145)
--- NOTE | 2023-05-09 22:35 | ED_ITS ---
HPI - Psych General Chief Complaint: Psychiatric Symptoms Stated Complaint: grp home,hearing voices to self harm,cuts on L arm Time Seen by Provider: 05/09/23 19:14 Source: patient Mode of arrival: EMS Limitations: no limitations History of Present Illness HPI Narrative: Patient comes to the emergency room complaining of suicidal ideation. Patient states that she has been feeling a lot of pressure, anxiety, patient self- inflicted lacerations to both forearms. Patient states they usually she hears voices telling her to kill herself. However, this time patient states that she is willing and thinking about killing herself. Patient states that she is getting tired of ?fighting? her mental illness. Patient denies using any medications or using drugs prior to arrival. Related Data Home Medications Medication Instructions Recorded Confirmed lisinopril 5 mg tablet 5 mg PO DAILY 04/12/23 05/09/23 lurasidone 20 mg tablet (Latuda) 20 mg PO DAILY 04/12/23 05/09/23 metformin 500 mg tablet 500 mg PO BID 04/12/23 05/09/23 mirtazapine 15 mg tablet 7.5 mg PO DAILY 04/12/23 05/09/23 montelukast 10 mg tablet 10 mg PO DAILY 04/12/23 05/09/23 pantoprazole 40 mg tablet,delayed 40 mg PO DAILY 04/12/23 05/09/23 release atorvastatin 10 mg tablet 10 mg PO DAILY 04/24/23 05/09/23 fluoxetine 40 mg capsule 40 mg PO BID 04/24/23 05/09/23 nystatin 100,000 unit/gram topical 1 appl topical BID 04/24/23 05/09/23 powder albuterol sulfate 90 mcg/actuation 2 puff inhalation Q6H PRN 05/09/23 05/09/23 aerosol inhaler (Ventolin HFA) Shortness Of Breath Or Wheezing benztropine 1 mg tablet 1 mg PO BID 05/09/23 05/09/23 fluphenazine HCl 5 mg tablet 5 mg PO BID 05/09/23 05/09/23 hydroxyzine pamoate 50 mg capsule 100 mg PO BID 05/09/23 05/09/23 trazodone 150 mg tablet 150 mg PO BEDTIME 05/09/23 05/09/23 Allergies Allergy/AdvReac Type Severity Reaction Status Date / Time azithromycin [AZITHROMYCIN] Allergy Severe Rash Verified 05/04/23 20:31 Fish Containing Products Allergy Severe Anaphylaxis Verified 05/04/23 20:31 codeine [Codeine] Allergy Intermediate Rash Verified 05/04/23 20:31 Penicillins Allergy Intermediate Rash Verified 05/04/23 20:31 prednisone [Prednisone] Allergy Intermediate Rash Verified 05/04/23 20:31 Sulfa (Sulfonamide Allergy Intermediate Rash Verified 05/04/23 20:31 Antibiotics) [Sulfa (Sulfonamides)] ziprasidone [From Geodon] Allergy Intermediate dysuria, Verified 05/04/23 20:31 rash Review of Systems Review of Systems: Constitutional : No Weight loss, No Fever, No Chills, No Night Sweats, No Fatigue, No Malaise ENT/Mouth : No Hearing loss, No Ear Pain, No Nasal Congestion, No Sinus Pain, No Hoarseness, No sore throat, No Rhinorrhea, No Swallowing Difficulty Eyes: No Eye Pain, No Swelling, No Redness, No Foreign Body, No Discharge, No Vision Changes Cardiovascular : No Chest Pain, No SOB, No Dyspnea on Exertion, No Orthopnea, No Edema, No Palpitations Respiratory : No Cough, No Sputum, No Wheezing, No Smoke Exposure, No Dyspnea Gastrointestinal : No Nausea, No Vomiting, No Diarrhea, No Constipation, No abdominal Pain, No Hematochezia, No Melena Genitourinary : no irregular bleeding, No Dysuria, No Urinary Frequency, No Jose Luis turia, No Urinary Incontinence, No Urgency, No Flank Pain, No Urinary Flow Changes, No Hesitancy Musculoskeletal : No joint pain, No Myalgias, No Joint Swelling Skin : No Skin Lesions, No rash Neuro : No Weakness, No Numbness, No Paresthesias, No Loss of Consciousness, No Dizziness, No Headache Psych : No Anxiety/Panic, No Depression, complaining of suicidal ideation, no homicidal ideation Heme/Lymph: No Bruising, No Bleeding,No Lymphadenopathy Endocrine : No Polyuria, No Polydipsia, No Temperature Intolerance PMFSH Past Medical History Medical History Acetaminophen overdose Acetaminophen overdose Acute anxiety Borderline personality disorder Bronchitis Chest pain COVID COVID-19 Depression Diabetes type 2, controlled Dizziness Full body hives GERD (gastroesophageal reflux disease) History of attempted suicide History of non-suicidal self-harm Hyperlipidemia Hypomagnesemia Major depression MDD (major depressive disorder), recurrent episode, severe Mood disorder Overdose PTSD (post-traumatic stress disorder) Suicide attempt Suicide attempt Suicide attempt by acetaminophen overdose UTI (urinary tract infection) Social History Social History 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 Household Members Other:: senior care Housing: Other Housing Other:: senior care Do you presently have visiting nurse or other home services: No Unable to assess alcohol history related to: Unknown Alcohol intake: never Patient Tobacco Use Status: Current everyday Tobacco user Tobacco use type: Cigarette Cigarette Packs Per Day: 1 Cigarettes Per Day: 15 Years Smoked: 22 e-Cigarette/Vaping Use: Never Used Substance Use Type: Marijuana Advance Directives: No Advance Directives Information Provided: No service: No Current occupational status: unemployed and disabled Sexual orientation: Don't Know Physical Exam Vital Signs: Vital Signs: Last Vital Signs Temp 97.1 F 05/09/23 19:25 Pulse 110 H 05/09/23 19:25 Resp 16 05/09/23 19:25 BP 140/90 H 05/09/23 19:25 Pulse Ox 100 05/09/23 19:25 O2 Del Method Room Air 05/09/23 19:25 BMI result Body Mass Index 36.3 Const: Other: Appearance: Alert. Oriented X3. No acute distress. Eyes: Pupils equal, round and reactive to light. ENT: Pharynx normal. Neck: Normal inspection. Neck supple. No lymph nodes noted. No crepitus CVS: Normal heart rate and rhythm. Pulses normal. Normal S1 and S2 Respiratory: No respiratory distress. Breath sounds normal. No Wheezing. No rales Abdomen: Soft and nontender. No rigidity. No distention. Skin: Skin warm and dry. Normal skin color. Normal skin turgor. Extremities: No lower extremity edema. No Lacerations. No Rash, patient has multiple lacerations to both forearms Neuro: Oriented X 3. No motor deficit. No sensory deficit. Moving all extremities. No slurred speech. CN 2 through 12 grossly intact Psych: calm, cooperative, normal affect Medical Decision Making Medical Decision Making MDM Narrative: -my interpretation of labs: Hematology and chemistry unremarkable, urine has a small amount of leukocyte esterase, epithelial cells present, patient has no UTI symptoms Differential Diagnosis Differential Diagnoses: The differential diagnosis associated with the presentation includes (Anxiety, depression, suicidal ideation, substance abuse) Admission/Observation Consideration of admission/observation: Escalation of care including admission/observation considered (Patient will remain under observation until seen by behavioral health) Lab Data MDM Lab Attestation statement: I reviewed the patient's lab results. 05/09/23 20:12 05/09/23 20:12 Labs: Lab Results 05/09/23 05/09/23 05/09/23 Range/Units 20:12 20:12 20:12 WBC 7.4 (4.8-10.8) X10*3/uL RBC 3.91 L (4.20-5.50) X10*6/uL Hgb 11.3 L (12.0-16.0) g/dl Hct 35.4 L (37.0-47.0) % MCV 90.5 (80.0-98.0) fL MCH 28.9 (27.0-33.0) pg MCHC 31.9 (31.0-35.0) g/dl RDW 14.3 (11.0-16.0) % Plt Count 284 (160-400) X10*3/uL MPV 9.3 L (9.4-12.3) fL Immature Gran % (Auto) 0.5 H (0.0-0.4) % Neut % (Auto) 63.3 (45-73) % Lymph % (Auto) 22.9 (20-40) % [place] % (Auto) 6.9 (2-11) % Eos % (Auto) 5.7 H (0-4) % Baso % (Auto) 0.7 (0-2) % Lymph # (Auto) 1.7 (1.2-4.9) X10*3/uL [place] # (Auto) 0.5 (0.1-1.2) X10*3/uL Eos # (Auto) 0.4 (0.0-0.4) X10*3/uL Baso # (Auto) 0.1 (0.0-0.2) X10*3/uL Abs Immat Gran (auto) 0.04 H (0.00-0.03) X10*3/uL Absolute Neuts (auto) 4.7 (2.0-8.3) x10*3/uL Absolute Nucleated RBC 0.000 (0.0-0.012) X10*3/uL Nucleated RBC % (auto) 0.0 (0.0-0.2) /100WBC Sodium 139 (135-145) mmol/L Potassium 3.6 (3.3-5.1) mmol/L Chloride 107 (96-108) mmol/L Carbon Dioxide 18 L (22-29) mmol/L Anion Gap 18 (12-20) BUN 8 L (9-16) mg/dL Creatinine 0.83 (0.5-1.4) mg/dL Estim Creat Clear Calc 99.6 Estimated GFR > 60 Random Glucose 148 H (60-115) mg/dL Calcium 8.7 (8.4-10.2) mg/dL Total Bilirubin 0.1 (0.0-1.0) mg/dL AST 16 (5-31) U/L ALT 15 (0-31) U/L Alkaline Phosphatase 117 (39-117) U/L Total Protein 7.0 (6.5-8.0) g/dL Albumin 4.2 (3.5-5.0) g/dL Urine Color Urine Appearance Urine pH (5.0-9.0) Ur Specific [place] (1.005-1.025) Urine Protein (Neg-Trace) mg/dL Urine Glucose (UA) (Negative) mg/dL Urine Ketones (Negative) mg/dL Urine Blood (Negative) Urine Nitrite (Negative) Ur Leukocyte Esterase (Negative) Urine RBC (0-2) /HPF Urine WBC (0-5) /HPF Ur Squamous Epith Cells (0-2) /HPF Urine Bacteria (None Seen) Hyaline Casts (0-2) /LPF Salicylates < 5.0 L (15-30) mg/dL Urine Opiates Screen (Not Detect) Urine Fentanyl Screen (Not Detect) Acetaminophen < 17 (<30) mcg/mL Ur Barbiturates Screen (Not Detect) Ur Phencyclidine Scrn (Not Detect) Ur Amphetamines Screen (Not Detect) U Benzodiazepines Scrn (Not Detect) Urine Cocaine Screen (Not Detect) U Marijuana (THC) Screen (Not Detect) Ethyl Alcohol < 10 mg/dL 05/09/23 05/09/23 Range/Units 20:19 20:19 WBC (4.8-10.8) X10*3/uL RBC (4.20-5.50) X10*6/uL Hgb (12.0-16.0) g/dl Hct (37.0-47.0) % MCV (80.0-98.0) fL MCH (27.0-33.0) pg MCHC (31.0-35.0) g/dl RDW (11.0-16.0) % Plt Count (160-400) X10*3/uL MPV (9.4-12.3) fL Immature Gran % (Auto) (0.0-0.4) % Neut % (Auto) (45-73) % Lymph % (Auto) (20-40) % [place] % (Auto) (2-11) % Eos % (Auto) (0-4) % Baso % (Auto) (0-2) % Lymph # (Auto) (1.2-4.9) X10*3/uL [place] # (Auto) (0.1-1.2) X10*3/uL Eos # (Auto) (0.0-0.4) X10*3/uL Baso # (Auto) (0.0-0.2) X10*3/uL Abs Immat Gran (auto) (0.00-0.03) X10*3/uL Absolute Neuts (auto) (2.0-8.3) x10*3/uL Absolute Nucleated RBC (0.0-0.012) X10*3/uL Nucleated RBC % (auto) (0.0-0.2) /100WBC Sodium (135-145) mmol/L Potassium (3.3-5.1) mmol/L Chloride (96-108) mmol/L Carbon Dioxide (22-29) mmol/L Anion Gap (12-20) BUN (9-16) mg/dL Creatinine (0.5-1.4) mg/dL Estim Creat Clear Calc Estimated GFR Random Glucose (60-115) mg/dL Calcium (8.4-10.2) mg/dL Total Bilirubin (0.0-1.0) mg/dL AST (5-31) U/L ALT (0-31) U/L Alkaline Phosphatase (39-117) U/L Total Protein (6.5-8.0) g/dL Albumin (3.5-5.0) g/dL Urine Color Yellow Urine Appearance Clear Urine pH 6.0 (5.0-9.0) Ur Specific [place] <= 1.005 (1.005-1.025) Urine Protein Negative (Neg-Trace) mg/dL Urine Glucose (UA) Negative (Negative) mg/dL Urine Ketones Negative (Negative) mg/dL Urine Blood Negative (Negative) Urine Nitrite Negative (Negative) Ur Leukocyte Esterase Small (1+) H (Negative) Urine RBC 0-2 (0-2) /HPF Urine WBC 11-20 H (0-5) /HPF Ur Squamous Epith Cells 3-5 (0-2) /HPF Urine Bacteria 1+ (None Seen) Hyaline Casts 0-2 (0-2) /LPF Salicylates (15-30) mg/dL Urine Opiates Screen Not Detected (Not Detect) Urine Fentanyl Screen Not Detected (Not Detect) Acetaminophen (<30) mcg/mL Ur Barbiturates Screen Not Detected (Not Detect) Ur Phencyclidine Scrn Not Detected (Not Detect) Ur Amphetamines Screen Not Detected (Not Detect) U Benzodiazepines Scrn Not Detected (Not Detect) Urine Cocaine Screen Not Detected (Not Detect) U Marijuana (THC) Screen Not Detected (Not Detect) Ethyl Alcohol mg/dL Discharge Plan Discharge Clinical Impression: Suicidal ideation Patient Disposition: Still a Patient Prescriptions: No Action metformin 500 mg tablet 500 mg PO BID pantoprazole 40 mg tablet,delayed release (DR/EC) 40 mg PO DAILY montelukast 10 mg tablet 10 mg PO DAILY lisinopril 5 mg tablet 5 mg PO DAILY mirtazapine 15 mg tablet 7.5 mg PO DAILY lurasidone [Latuda] 20 mg tablet 20 mg PO DAILY fluoxetine 40 mg capsule 40 mg PO BID atorvastatin 10 mg tablet 10 mg PO DAILY nystatin 100,000 unit/gram powder 1 appl topical BID albuterol sulfate [Ventolin HFA] 90 mcg/actuation HFA aerosol inhaler 2 puff inhalation Q6H PRN (Reason: Shortness Of Breath Or Wheezing) trazodone 150 mg tablet 150 mg PO BEDTIME fluphenazine HCl 5 mg tablet 5 mg PO BID benztropine 1 mg tablet 1 mg PO BID hydroxyzine pamoate 50 mg capsule 100 mg PO BID
--- NOTE | 2023-05-10 06:21 | PC.NURSE ---
Patient slept through the night, no distress observed/reported, behavior non concerning, assessed by care team, disposition pending possible discharge back to [facility], med rec completed/pending provider's approval, labs completed/resulted, VSS, will continue to monitor.
[2023-05-10 06:51] VITALS: BP 131/71; PULSE 75; RESP 16; TEMP 35.8
== END 2023-05-10 10:41 | disposition home or self-care (01) ==
PROVIDERS: Emergency Medicine; Emergency Provider Emergency Medicine Emergency Medical Services
DX: R45.851 Suicidal ideations (principal); N39.0 Urinary tract infection, site not specified; B96.20 Unspecified Escherichia coli [E. coli] as the cause of diseases classified elsewhere; R44.0 Auditory hallucinations; F31.9 Bipolar disorder, unspecified; F60.3 Borderline personality disorder; F41.9 Anxiety disorder, unspecified; F43.12 Post-traumatic stress disorder, chronic; E11.9 Type 2 diabetes mellitus without complications; E78.5 Hyperlipidemia, unspecified; K21.9 Gastro-esophageal reflux disease without esophagitis; D64.9 Anemia, unspecified; F17.210 Nicotine dependence, cigarettes, uncomplicated; F12.90 Cannabis use, unspecified, uncomplicated; E66.9 Obesity, unspecified; Z68.36 Body mass index [BMI] 36.0-36.9, adult; Z91.51 Personal history of suicidal behavior; Z91.52 Personal history of nonsuicidal self-harm; Z79.84 Long term (current) use of oral hypoglycemic drugs; Z79.899 Other long term (current) drug therapy
CPT/HCPCS: 36415; 80053; 80143; 80179; 80307; 81001; 85025; 99284

== ENCOUNTER 2023-05-16 20:23 | Emergency (ER) | payer MEDICARE, MEDICAID, SELFPAY ==
[2023-05-16 20:29] VITALS: BMI 39.1
[2023-05-16 20:37] VITALS: BP 138/96; PULSE 121; RESP 20; TEMP 36.8; O2SAT 97
[2023-05-16 21:12] LABS: Appearance Urine Clear; Color Urine Yellow; Glucose Urine UA Negative (Negative); Leukocyte Esterase Urine Trace (Negative); Nitrite Urine Negative (Negative); PH 5.5 (5.0-9.0); Specific Gravity - Urine <= 1.005 (1.005-1.025); UMIC TRIGGER UA YES; Urine Blood Negative (Negative); Urine Ketones Negative (Negative); Urine Protein Negative (Neg-Trace)
[2023-05-16 21:13] LABS: UPreg QC Valid YES; Urine Pregnancy NEGATIVE (NEGATIVE)
[2023-05-16 21:17] LABS: Bacteria Urine Trace (None Seen); Hyaline Casts Urine 0-2 /LPF (0-2); RBC Urine 0-2 /HPF (0-2); WBC Urine 0-5 /HPF (0-5)
[2023-05-16 21:19] LABS: Amphetamine Screen Urine Not Detected (Not Detect); Barbiturates, Urine Not Detected (Not Detect); Benzodiazepines Screen Urine Not Detected (Not Detect); Cannabinoid Screen Urine Not Detected (Not Detect); Cocaine Screen Urine Not Detected (Not Detect); Fentanyl, urine Not Detected (Not Detect); Opiate Screen Urine Not Detected (Not Detect); Phencyclidine Screen Urine Not Detected (Not Detect)
[2023-05-16 22:12] LABS: Salicylate < 5.0 mg/dL (15-30)
[2023-05-16 22:13] LABS: Ethanol < 10 mg/dL
--- NOTE | 2023-05-16 22:23 | ED.PSYCH ---
HPI - Psych General Chief Complaint: Psychiatric Symptoms Stated Complaint: caox4, hearing voices, superficial cuts, per ems Time Seen by Provider: 05/16/23 20:34 Source: patient and EMS Mode of arrival: EMS Limitations: no limitations History of Present Illness HPI Narrative: Patient is a 47-year-old female who presents emergency department via EMS coming from her long term. Patient found a piece of glass in her room when she was cleaning it, she made superficial lacerations to her left forearm because she was hearing voices. She subsequently through the glass away as instructed by her long term staff. However she was transported to the emergency department for evaluation. She denies any suicidal or homicidal ideations. She denies any auditory hallucinations at this time, reporting that she received her p.r.n. medication which resolved her symptoms. She has no physical complaints. There is no active bleeding. Tetanus vaccination is up-to-date. Related Data Home Medications Medication Instructions Recorded Confirmed lisinopril 5 mg tablet 5 mg PO DAILY 04/12/23 05/16/23 lurasidone 20 mg tablet (Latuda) 20 mg PO DAILY 04/12/23 05/16/23 metformin 500 mg tablet 500 mg PO BID 04/12/23 05/16/23 mirtazapine 15 mg tablet 7.5 mg PO DAILY 04/12/23 05/16/23 montelukast 10 mg tablet 10 mg PO DAILY 04/12/23 05/16/23 pantoprazole 40 mg tablet,delayed 40 mg PO DAILY 04/12/23 05/16/23 release atorvastatin 10 mg tablet 10 mg PO DAILY 04/24/23 05/16/23 fluoxetine 40 mg capsule 40 mg PO BID 04/24/23 05/16/23 albuterol sulfate 90 mcg/actuation 2 puff inhalation Q6H PRN 05/09/23 05/16/23 aerosol inhaler (Ventolin HFA) Shortness Of Breath Or Wheezing benztropine 1 mg tablet 1 mg PO BID 05/09/23 05/16/23 fluphenazine HCl 5 mg tablet 5 mg PO BID 05/09/23 05/16/23 hydroxyzine pamoate 50 mg capsule 100 mg PO BID 05/09/23 05/16/23 trazodone 150 mg tablet 150 mg PO BEDTIME 05/09/23 05/16/23 Allergies Allergy/AdvReac Type Severity Reaction Status Date / Time azithromycin [AZITHROMYCIN] Allergy Severe Rash Verified 05/04/23 20:31 Fish Containing Products Allergy Severe Anaphylaxis Verified 05/04/23 20:31 codeine [Codeine] Allergy Intermediate Rash Verified 05/04/23 20:31 Penicillins Allergy Intermediate Rash Verified 05/04/23 20:31 prednisone [Prednisone] Allergy Intermediate Rash Verified 05/04/23 20:31 Sulfa (Sulfonamide Allergy Intermediate Rash Verified 05/04/23 20:31 Antibiotics) [Sulfa (Sulfonamides)] ziprasidone [From Geodon] Allergy Intermediate dysuria, Verified 05/04/23 20:31 rash Review of Systems Review of Systems: Constitutional : No Fever, No Chills ENT/Mouth : No Ear Pain, No Nasal Congestion, No sore throat Eyes: No Eye Pain, No Swelling, No Redness Cardiovascular : No Chest Pain, No SOB Respiratory : No Cough, No Sputum, No Dyspnea Gastrointestinal : No Nausea, No Vomiting, No Diarrhea, No Hematochezia, No Melena Genitourinary : No Dysuria, No Urinary Frequency, No Hematuria Musculoskeletal : No Myalgias Skin : No Skin Lesions, No rash, positive superficial laceration to forearm Neuro : No Weakness, No Numbness, No Paresthesias, No Dizziness, No Headache Psych : No Anxiety, no Depression, no SI/HI, positive hallucinations Heme/Lymph: No Lymphadenopathy Endocrine : No Polyuria, No Polydipsia Yes all other systems are reviewed and are negative FORMERLY [facility], [facility] Past Medical History Attestation statement: The following information was validated with the patient. Source: old records reviewed Medical History Acetaminophen overdose Acetaminophen overdose Acute anxiety Borderline personality disorder Bronchitis Chest pain COVID COVID-19 Depression Diabetes type 2, controlled Dizziness Full body hives GERD (gastroesophageal reflux disease) History of attempted suicide History of non-suicidal self-harm Hyperlipidemia Hypomagnesemia Major depression MDD (major depressive disorder), recurrent episode, severe Mood disorder Overdose PTSD (post-traumatic stress disorder) Suicide attempt Suicide attempt Suicide attempt by acetaminophen overdose UTI (urinary tract infection) Social History Social History 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 Household Members Other:: long term Housing: Other Housing Other:: long term Do you presently have visiting nurse or other home services: No Unable to assess alcohol history related to: Unknown Alcohol intake: never Patient Tobacco Use Status: Current everyday Tobacco user Tobacco use type: Cigarette Cigarette Packs Per Day: 1 Cigarettes Per Day: 15 Years Smoked: 22 e-Cigarette/Vaping Use: Never Used Substance Use Type: Marijuana Advance Directives: No Advance Directives Information Provided: No service: No Current occupational status: unemployed and disabled Sexual orientation: Don't Know Physical Exam Vital Signs: Vital Signs: Last Vital Signs Temp 98.2 F 05/16/23 20:37 Pulse 121 H 05/16/23 20:37 Resp 20 05/16/23 20:37 BP 138/96 H 05/16/23 20:37 Pulse Ox 97 05/16/23 20:37 O2 Del Method Room Air 05/16/23 20:37 BMI result Body Mass Index 39.1 Appearance: Alert.?Oriented to person, place and time. No acute distress.?Normal affect. Eyes: Pupils equal, round and reactive to light.? ENT: Pharynx normal.?? Neck: Normal inspection.? Neck supple.?? CVS: Heart sounds normal. Normal heart rate and rhythm.? Pulses normal.?? Respiratory: No respiratory distress.? Lung sounds clear to auscultation bilaterally?? Abdomen: Soft and non-tender. Normoactive bowel sounds. Skin: Skin warm and dry.? Normal skin color.? Superficial lacerations to the left posterior forearm, no active bleeding. Extremities: No lower extremity edema.? \ Neuro: Moves all extremities spontaneously. Sensation intact bilaterally. CN II-XII intact. No focal neuro deficits. Ambulates with normal steady gait. Medical Decision Making Medical Decision Making MDM Narrative: Patient is a 47-year-old female presents emergency department for evaluation of self-harm with superficial lacerations to the forearm of glass as per HPI. Resolution of auditory hallucinations after receiving her p.r.n. medication. She has had many emergency department visits for similar complaints in the past. At the time my examination she is overall well-appearing. She does not appear in any acute psychosis, she is coherent, denying any physical complaints. Denying any suicidal or homicidal ideations. She is requesting to be transported back to her long term at this time, reporting that she did not want to come to the emergency department in the first place. I feel that this is reasonable, low suspicion for threat to self. Reviewed labs obtained from nursing protocol, urinalysis unremarkable, urine negative, toxicology is negative. Patient stable for discharge Differential Diagnosis Differential Diagnoses: The differential diagnosis associated with the presentation includes (Hallucinations, substance use disorder, psychosis, laceration, neurovascular compromise) Admission/Observation Consideration of admission/observation: Escalation of care including admission/observation considered (Considered physician observation for care team evaluation as to whether inpatient psychiatric services are required, resolution of symptoms at this time, do not feel observation is necessary) Lab Data MDM Lab Attestation statement: I reviewed the patient's lab results. (As noted above) Labs: Lab Results 05/16/23 05/16/23 05/16/23 Range/Units 20:43 20:43 20:43 Urine Color Yellow Urine Appearance Clear Urine pH 5.5 (5.0-9.0) Ur Specific [place] <= 1.005 (1.005-1.025) Urine Protein Negative (Neg-Trace) mg/dL Urine Glucose (UA) Negative (Negative) mg/dL Urine Ketones Negative (Negative) mg/dL Urine Blood Negative (Negative) Urine Nitrite Negative (Negative) Ur Leukocyte Esterase Trace H (Negative) Urine RBC 0-2 (0-2) /HPF Urine WBC 0-5 (0-5) /HPF Ur Squamous Epith Cells 3-5 (0-2) /HPF Urine Bacteria Trace (None Seen) Hyaline Casts 0-2 (0-2) /LPF Urine Test NEGATIVE (NEGATIVE) Salicylates (15-30) mg/dL Urine Opiates Screen Not Detected (Not Detect) Urine Fentanyl Screen Not Detected (Not Detect) Ur Barbiturates Screen Not Detected (Not Detect) Ur Phencyclidine Scrn Not Detected (Not Detect) Ur Amphetamines Screen Not Detected (Not Detect) U Benzodiazepines Scrn Not Detected (Not Detect) Urine Cocaine Screen Not Detected (Not Detect) U Marijuana (THC) Screen Not Detected (Not Detect) Ethyl Alcohol mg/dL 05/16/23 05/16/23 Range/Units 21:50 21:50 Urine Color Urine Appearance Urine pH (5.0-9.0) Ur Specific [place] (1.005-1.025) Urine Protein (Neg-Trace) mg/dL Urine Glucose (UA) (Negative) mg/dL Urine Ketones (Negative) mg/dL Urine Blood (Negative) Urine Nitrite (Negative) Ur Leukocyte Esterase (Negative) Urine RBC (0-2) /HPF Urine WBC (0-5) /HPF Ur Squamous Epith Cells (0-2) /HPF Urine Bacteria (None Seen) Hyaline Casts (0-2) /LPF Urine Test (NEGATIVE) Salicylates < 5.0 L (15-30) mg/dL Urine Opiates Screen (Not Detect) Urine Fentanyl Screen (Not Detect) Ur Barbiturates Screen (Not Detect) Ur Phencyclidine Scrn (Not Detect) Ur Amphetamines Screen (Not Detect) U Benzodiazepines Scrn (Not Detect) Urine Cocaine Screen (Not Detect) U Marijuana (THC) Screen (Not Detect) Ethyl Alcohol < 10 mg/dL Independent Historian Clinical information obtained from an independent historian. History obtained from or confirmed by: EMS External Record Review External record reviewed: Prior outpatient labs Discharge Plan Discharge Clinical Impression: Laceration of forearm, Auditory hallucinations Patient Disposition: Home, Self-Care Additional Instructions: Clean the arm twice daily with warm water and mild non scented soap. Apply topical antibiotic ointment/bacitracin twice daily. Continue taking all of your medications as prescribed. Return back to emergency department any new or worsening symptoms or concerns. Prescriptions: No Action metformin 500 mg tablet 500 mg PO BID pantoprazole 40 mg tablet,delayed release (DR/EC) 40 mg PO DAILY montelukast 10 mg tablet 10 mg PO DAILY lisinopril 5 mg tablet 5 mg PO DAILY mirtazapine 15 mg tablet 7.5 mg PO DAILY lurasidone [Latuda] 20 mg tablet 20 mg PO DAILY fluoxetine 40 mg capsule 40 mg PO BID atorvastatin 10 mg tablet 10 mg PO DAILY albuterol sulfate [Ventolin HFA] 90 mcg/actuation HFA aerosol inhaler 2 puff inhalation Q6H PRN (Reason: Shortness Of Breath Or Wheezing) trazodone 150 mg tablet 150 mg PO BEDTIME fluphenazine HCl 5 mg tablet 5 mg PO BID benztropine 1 mg tablet 1 mg PO BID hydroxyzine pamoate 50 mg capsule 100 mg PO BID Referrals: Physician,Unknown J [Primary Care Provider] -
[2023-05-16 22:27] LABS: Acetaminophen LAB < 17 mcg/mL (<30)
[2023-05-16 22:35] VITALS: PULSE 105; RESP 16
== END 2023-05-16 22:53 | disposition home or self-care (01) ==
PROVIDERS: Emergency Provider Emergency Medicine Emergency Medical Services
DX: S51.812A Laceration without foreign body of left forearm, initial encounter (principal); F33.1 Major depressive disorder, recurrent, moderate; R44.0 Auditory hallucinations; F99 Mental disorder, not otherwise specified; X78.1XXA Intentional self-harm by knife, initial encounter; Y93.9 Activity, unspecified; Y92.9 Unspecified place or not applicable; Y99.9 Unspecified external cause status; Z79.899 Other long term (current) drug therapy; F17.210 Nicotine dependence, cigarettes, uncomplicated; Z71.6 Tobacco abuse counseling
CPT/HCPCS: 36415; 80143; 80179; 80307; 81001; 81025; 99283

== ENCOUNTER 2023-05-21 15:38 | Emergency (ER) | payer MEDICARE, MEDICAID, SELFPAY ==
[2023-05-21 15:57] VITALS: O2SAT 98; BMI 37.4
[2023-05-21 16:10] VITALS: BP 132/80; PULSE 100; RESP 22; TEMP 36.1; O2SAT 96
--- NOTE | 2023-05-21 16:13 | PC.NURSE ---
Patient arrived from [facility] via ems after making numerous superficial cut to left and right arms using a piece of glass that she had in her room. States she broke something in her room to use to cut herself. Denies HI but states SI. States is having abdominal pain but was at [facility] yesterday and was told she has a cyst. Left and right arm with multiple old healed superficial scratches. Sitting in common area in no apparent distress eating snacks and peanut butter and jelly.
--- NOTE | 2023-05-21 16:17 | PC.NURSE ---
Multiple attempts to call shelter to verify medications unsuccesful at this time
[2023-05-21 16:24] LABS: Appearance Urine Clear; Color Urine Yellow; Glucose Urine UA Negative (Negative); Leukocyte Esterase Urine Negative (Negative); Nitrite Urine Negative (Negative); PH 5.5 (5.0-9.0); Specific Gravity - Urine 1.015 (1.005-1.025); Urine Blood Negative (Negative); Urine Ketones Negative (Negative); Urine Protein Negative (Neg-Trace)
[2023-05-21 16:26] LABS: Bacteria Urine Trace (None Seen); Hyaline Casts Urine 0-2 /LPF (0-2); RBC Urine 0-2 /HPF (0-2); WBC Urine 0-5 /HPF (0-5)
[2023-05-21 16:34] LABS: Amphetamine Screen Urine Not Detected (Not Detect); Barbiturates, Urine Not Detected (Not Detect); Benzodiazepines Screen Urine Not Detected (Not Detect); Cannabinoid Screen Urine Not Detected (Not Detect); Cocaine Screen Urine Not Detected (Not Detect); Fentanyl, urine Not Detected (Not Detect); Opiate Screen Urine Not Detected (Not Detect); Phencyclidine Screen Urine Not Detected (Not Detect)
--- NOTE | 2023-05-21 17:28 | PC.NURSE ---
Patient denies SI/HI, requesting discharge home, provider and care team aware.
--- NOTE | 2023-05-21 17:36 | ED_ITS ---
HPI - Psych General Chief Complaint: Psychiatric Symptoms Stated Complaint: CUT L FOREARM Time Seen by Provider: 05/21/23 16:03 Source: patient Mode of arrival: EMS Limitations: no limitations History of Present Illness HPI Narrative: Patient comes in the emergency room complaining of anxiety. Patient states that she found a piece of glass in her custodial and started cutting her left forearm superficially. Patient states that her custodial sent her here for suicidal ideation. However, she states that she is not suicidal or homicidal. Patient has no other complaints. Related Data Home Medications Medication Instructions Recorded Confirmed lisinopril 5 mg tablet 5 mg PO DAILY 04/12/23 05/21/23 lurasidone 20 mg tablet (Latuda) 20 mg PO DAILY 04/12/23 05/21/23 metformin 500 mg tablet 500 mg PO BID 04/12/23 05/21/23 mirtazapine 15 mg tablet 7.5 mg PO DAILY 04/12/23 05/21/23 montelukast 10 mg tablet 10 mg PO DAILY 04/12/23 05/21/23 pantoprazole 40 mg tablet,delayed 40 mg PO DAILY 04/12/23 05/21/23 release atorvastatin 10 mg tablet 10 mg PO DAILY 04/24/23 05/21/23 fluoxetine 40 mg capsule 40 mg PO BID 04/24/23 05/21/23 albuterol sulfate 90 mcg/actuation 2 puff inhalation Q6H PRN 05/09/23 05/21/23 aerosol inhaler (Ventolin HFA) Shortness Of Breath Or Wheezing benztropine 1 mg tablet 1 mg PO BID 05/09/23 05/21/23 fluphenazine HCl 5 mg tablet 5 mg PO BID 05/09/23 05/21/23 hydroxyzine pamoate 50 mg capsule 100 mg PO BID 05/09/23 05/21/23 trazodone 150 mg tablet 150 mg PO BEDTIME 05/09/23 05/21/23 Allergies Allergy/AdvReac Type Severity Reaction Status Date / Time azithromycin [AZITHROMYCIN] Allergy Severe Rash Verified 05/04/23 20:31 Fish Containing Products Allergy Severe Anaphylaxis Verified 05/04/23 20:31 codeine [Codeine] Allergy Intermediate Rash Verified 05/04/23 20:31 Penicillins Allergy Intermediate Rash Verified 05/04/23 20:31 prednisone [Prednisone] Allergy Intermediate Rash Verified 05/04/23 20:31 Sulfa (Sulfonamide Allergy Intermediate Rash Verified 05/04/23 20:31 Antibiotics) [Sulfa (Sulfonamides)] ziprasidone [From Geodon] Allergy Intermediate dysuria, Verified 05/04/23 20:31 rash Review of Systems Review of Systems: Constitutional : No Weight loss, No Fever, No Chills, No Night Sweats, No Fatigue, No Malaise ENT/Mouth : No Hearing loss, No Ear Pain, No Nasal Congestion, No Sinus Pain, No Hoarseness, No sore throat, No Rhinorrhea, No Swallowing Difficulty Eyes: No Eye Pain, No Swelling, No Redness, No Foreign Body, No Discharge, No Vision Changes Cardiovascular : No Chest Pain, No SOB, No Dyspnea on Exertion, No Orthopnea, No Edema, No Palpitations Respiratory : No Cough, No Sputum, No Wheezing, No Smoke Exposure, No Dyspnea Gastrointestinal : No Nausea, No Vomiting, No Diarrhea, No Constipation, No abdominal Pain, No Hematochezia, No Melena Genitourinary : no irregular bleeding, No Dysuria, No Urinary Frequency, No Hematuria, No Urinary Incontinence, No Urgency, No Flank Pain, No Urinary Flow Changes, No Hesitancy Musculoskeletal : No joint pain, No Myalgias, No Joint Swelling Skin : Complaining of minor superficial scratches to the left forearm Neuro : No Weakness, No Numbness, No Paresthesias, No Loss of Consciousness, No Dizziness, No Headache Psych : Complaining of anxiety, denies depression, No SI/HI/AH/VH, No Social Issues, Heme/Lymph: No Bruising, No Bleeding,No Lymphadenopathy Endocrine : No Polyuria, No Polydipsia, No Temperature Intolerance [facility] Past Medical History Medical History Acetaminophen overdose Acetaminophen overdose Acute anxiety Borderline personality disorder Bronchitis Chest pain COVID COVID-19 Depression Diabetes type 2, controlled Dizziness Full body hives GERD (gastroesophageal reflux disease) History of attempted suicide History of non-suicidal self-harm Hyperlipidemia Hypomagnesemia Major depression MDD (major depressive disorder), recurrent episode, severe Mood disorder Overdose PTSD (post-traumatic stress disorder) Suicide attempt Suicide attempt Suicide attempt by acetaminophen overdose UTI (urinary tract infection) Social History Social History 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 Household Members Other:: custodial Housing: Other Housing Other:: custodial Do you presently have visiting nurse or other home services: No Unable to assess alcohol history related to: Unknown Alcohol intake: never Patient Tobacco Use Status: Current everyday Tobacco user Tobacco use type: Cigarette Cigarette Packs Per Day: 1 Cigarettes Per Day: 15 Years Smoked: 22 e-Cigarette/Vaping Use: Never Used Substance Use Type: Marijuana Advance Directives: No Advance Directives Information Provided: No service: No Current occupational status: unemployed and disabled Sexual orientation: Don't Know Physical Exam Vital Signs: Vital Signs: Last Vital Signs Temp 97 F 05/21/23 16:10 Pulse 100 05/21/23 16:10 Resp 22 H 05/21/23 16:10 BP 132/80 05/21/23 16:10 Pulse Ox 96 05/21/23 16:10 O2 Del Method Room Air 05/21/23 16:10 BMI result Body Mass Index 37.4 Const: Other: Appearance: Alert. Oriented X3. No acute distress. Eyes: Pupils equal, round and reactive to light. ENT: Pharynx normal. Neck: Normal inspection. Neck supple. No lymph nodes noted. No crepitus CVS: Normal heart rate and rhythm. Pulses normal. Normal S1 and S2 Respiratory: No respiratory distress. Breath sounds normal. No Wheezing. No rales Abdomen: Soft and nontender. No rigidity. No distention. Skin: Skin warm and dry. Normal skin color. Several superficial scratches to the left forearm Extremities: No lower extremity edema. No Lacerations. No Rash Neuro: Oriented X 3. No motor deficit. No sensory deficit. Moving all extremities. No slurred speech. CN 2 through 12 grossly intact Psych: calm, cooperative, normal affect Medical Decision Making Medical Decision Making MDM Narrative: -patient states that she is not suicidal or homicidal. Patient declining any further care. -I spoke with the care team, they are agreeable that we can discharge the patient safely. Patient will be sent to her custodial shortly. Differential Diagnosis Differential Diagnoses: The differential diagnosis associated with the presentation includes (Anxiety, depression, suicidal ideation) Lab Data [facility] Lab Attestation statement: I reviewed the patient's lab results. Labs: Lab Results 05/21/23 05/21/23 Range/Units 16:11 16:11 Urine Color Yellow Urine Appearance Clear Urine pH 5.5 (5.0-9.0) Ur Specific [place] 1.015 (1.005-1.025) Urine Protein Negative (Neg-Trace) mg/dL Urine Glucose (UA) Negative (Negative) mg/dL Urine Ketones Negative (Negative) mg/dL Urine Blood Negative (Negative) Urine Nitrite Negative (Negative) Ur Leukocyte Esterase Negative (Negative) Urine RBC 0-2 (0-2) /HPF Urine WBC 0-5 (0-5) /HPF Ur Squamous Epith Cells 3-5 (0-2) /HPF Urine Bacteria Trace (None Seen) Hyaline Casts 0-2 (0-2) /LPF Urine Opiates Screen Not Detected (Not Detect) Urine Fentanyl Screen Not Detected (Not Detect) Ur Barbiturates Screen Not Detected (Not Detect) Ur Phencyclidine Scrn Not Detected (Not Detect) Ur Amphetamines Screen Not Detected (Not Detect) U Benzodiazepines Scrn Not Detected (Not Detect) Urine Cocaine Screen Not Detected (Not Detect) U Marijuana (THC) Screen Not Detected (Not Detect) Discharge Plan Discharge Clinical Impression: Anxiety, Superficial abrasion Patient Disposition: Home, Self-Care Instructions: Abrasion (ED), Anxiety (ED) Additional Instructions: Please follow-up with your primary care physician tomorrow. If you have any worsening or new symptoms, please return to the emergency room or call 911 Prescriptions: No Action metformin 500 mg tablet 500 mg PO BID pantoprazole 40 mg tablet,delayed release (DR/EC) 40 mg PO DAILY montelukast 10 mg tablet 10 mg PO DAILY lisinopril 5 mg tablet 5 mg PO DAILY mirtazapine 15 mg tablet 7.5 mg PO DAILY lurasidone [Latuda] 20 mg tablet 20 mg PO DAILY fluoxetine 40 mg capsule 40 mg PO BID atorvastatin 10 mg tablet 10 mg PO DAILY albuterol sulfate [Ventolin HFA] 90 mcg/actuation HFA aerosol inhaler 2 puff inhalation Q6H PRN (Reason: Shortness Of Breath Or Wheezing) trazodone 150 mg tablet 150 mg PO BEDTIME fluphenazine HCl 5 mg tablet 5 mg PO BID benztropine 1 mg tablet 1 mg PO BID hydroxyzine pamoate 50 mg capsule 100 mg PO BID Interventions: [place]-Suicide Risk Severity Scale Last Done: 05/21/23 16:00
--- NOTE | 2023-05-21 17:45 | PC.NURSE ---
discharge plan reviewed with patient who verbalized understanding
== END 2023-05-21 17:45 | disposition home or self-care (01) ==
PROVIDERS: Emergency Provider Emergency Medicine
DX: F41.9 Anxiety disorder, unspecified (principal); R45.88 Nonsuicidal self-harm; S50.812A Abrasion of left forearm, initial encounter; X78.0XXA Intentional self-harm by sharp glass, initial encounter; R45.851 Suicidal ideations; F31.9 Bipolar disorder, unspecified; F60.3 Borderline personality disorder; R44.0 Auditory hallucinations; F43.12 Post-traumatic stress disorder, chronic; E11.9 Type 2 diabetes mellitus without complications; E78.5 Hyperlipidemia, unspecified; D64.9 Anemia, unspecified; K21.9 Gastro-esophageal reflux disease without esophagitis; F17.210 Nicotine dependence, cigarettes, uncomplicated; F12.90 Cannabis use, unspecified, uncomplicated; E66.9 Obesity, unspecified; Z68.37 Body mass index [BMI] 37.0-37.9, adult; Y93.9 Activity, unspecified; Y92.049 Unspecified place in boarding-house as the place of occurrence of the external cause; Y99.9 Unspecified external cause status; Z91.51 Personal history of suicidal behavior; Z91.52 Personal history of nonsuicidal self-harm; Z79.84 Long term (current) use of oral hypoglycemic drugs; Z79.899 Other long term (current) drug therapy
CPT/HCPCS: 80307; 81001; 99284; 99285

== ENCOUNTER 2023-05-26 12:35 | Emergency (ER) | payer MEDICARE, MEDICAID, SELFPAY ==
[2023-05-26 12:40] VITALS: BP 132/75; BP 142/96; PULSE 100; PULSE 93; RESP 18; TEMP 36.3; O2SAT 97; O2SAT 98; BMI 37.8
--- NOTE | 2023-05-26 13:00 | PC.NURSE ---
a+o, vss, denies pain. pt reported that she hears voices telling her to harm herself. Sees Dad next to her, dad telling her that he will hurt her. denies SI/HI. pt seen at [facility] last night into this morning, reports that she has not taken her scheduled meds and that may be why shes having those thoughts. no other complaints.
--- NOTE | 2023-05-26 13:37 | ED.GENADULT ---
HPI - General Adult General Chief complaint: Psychiatric Symptoms Stated complaint: CRISIS,SI W/PLAN Time Seen by Provider: 05/26/23 13:32 Source: patient, RN notes reviewed and old records reviewed Mode of arrival: EMS History of Present Illness HPI narrative: 47-year-old female presents for evaluation of hearing voices Patient is very well known to this emergency department for similar presentations. At the time of my evaluation the patient reports she feels better and would like to be discharged. She states that she did not take her nighttime meds last night or her morning meds because ?I was at [facility]. Related Data Home Medications Medication Instructions Recorded Confirmed lisinopril 5 mg tablet 5 mg PO DAILY 04/12/23 05/21/23 lurasidone 20 mg tablet (Latuda) 20 mg PO DAILY 04/12/23 05/21/23 metformin 500 mg tablet 500 mg PO BID 04/12/23 05/21/23 mirtazapine 15 mg tablet 7.5 mg PO DAILY 04/12/23 05/21/23 montelukast 10 mg tablet 10 mg PO DAILY 04/12/23 05/21/23 pantoprazole 40 mg tablet,delayed 40 mg PO DAILY 04/12/23 05/21/23 release atorvastatin 10 mg tablet 10 mg PO DAILY 04/24/23 05/21/23 fluoxetine 40 mg capsule 40 mg PO BID 04/24/23 05/21/23 albuterol sulfate 90 mcg/actuation 2 puff inhalation Q6H PRN 05/09/23 05/21/23 aerosol inhaler (Ventolin HFA) Shortness Of Breath Or Wheezing benztropine 1 mg tablet 1 mg PO BID 05/09/23 05/21/23 fluphenazine HCl 5 mg tablet 5 mg PO BID 05/09/23 05/21/23 hydroxyzine pamoate 50 mg capsule 100 mg PO BID 05/09/23 05/21/23 trazodone 150 mg tablet 150 mg PO BEDTIME 05/09/23 05/21/23 Allergies Allergy/AdvReac Type Severity Reaction Status Date / Time azithromycin [AZITHROMYCIN] Allergy Severe Rash Verified 05/26/23 12:54 Fish Containing Products Allergy Severe Anaphylaxis Verified 05/26/23 12:54 codeine [Codeine] Allergy Intermediate Rash Verified 05/26/23 12:54 Penicillins Allergy Intermediate Rash Verified 05/26/23 12:54 prednisone [Prednisone] Allergy Intermediate Rash Verified 05/26/23 12:54 Sulfa (Sulfonamide Allergy Intermediate Rash Verified 05/26/23 12:54 Antibiotics) [Sulfa (Sulfonamides)] ziprasidone [From Geodon] Allergy Intermediate dysuria, Verified 05/26/23 12:54 rash Review of Systems Constitutional: Constitutional: Denies chills and Denies fever(s) Cardiovascular: Cardiovascular: Denies chest pain Gastrointestinal: Gastrointestinal: Denies abdominal pain, Denies nausea and Denies vomiting PMFSH Past Medical History Medical History Acetaminophen overdose Acetaminophen overdose Acute anxiety Borderline personality disorder Bronchitis Chest pain COVID COVID-19 Depression Diabetes type 2, controlled Dizziness Full body hives GERD (gastroesophageal reflux disease) History of attempted suicide History of non-suicidal self-harm Hyperlipidemia Hypomagnesemia Major depression MDD (major depressive disorder), recurrent episode, severe Mood disorder Overdose PTSD (post-traumatic stress disorder) Suicide attempt Suicide attempt Suicide attempt by acetaminophen overdose UTI (urinary tract infection) Social History Social History 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 Household Members Other:: senior care Housing: Other Housing Other:: senior care Do you presently have visiting nurse or other home services: No Unable to assess alcohol history related to: Unknown Alcohol intake: never Patient Tobacco Use Status: Current everyday Tobacco user Tobacco use type: Cigarette Cigarette Packs Per Day: 1 Cigarettes Per Day: 15 Years Smoked: 22 Smoked in Last 30 Days: Yes e-Cigarette/Vaping Use: Never Used Use of substances other than those prescribed or required for medical reasons: No Substance Use Type: Marijuana Advance Directives: No Advance Directives Information Provided: Yes service: No Current occupational status: unemployed and disabled Sexual orientation: Don't Know Physical Exam ED Vital Signs: Vital Signs - 24 hr 05/26/23 12:40 Temperature 97.4 F Pulse Rate 93 Respiratory Rate 18 Blood Pressure 132/75 Pulse Oximetry 97 Oxygen Delivery Method Room Air BMI result Body Mass Index 37.8 Const General: healthy appearing, comfortable, no acute distress, alert and awake Nutritional Appearance: well nourished Orientation/consciousness: patient oriented x3 HENMT Head: Yes normocephalic and Yes atraumatic Throat: Yes posterior oropharynx normal Eyes Eyelids: Yes eyelids normal Conjunctivae: conjunctivae normal Sclerae: sclerae normal Corneas: corneas normal Pupils: Equal, round and reactive pupils present EOM: EOMs intact bilaterally Neck Neck: Yes full ROM Resp Effort & Inspection: normal respiratory effort, able to speak in complete sentences and not labored Cardio Rate: regular rate Rhythm: regular rhythm Skin General skin exam: no rashes or lesions noted and elasticity normal Neuro General: patient oriented x3 Cranial nerves: Yes Equal, round and reactive pupils present and Yes Bilaterally intact EOM present Cognition (Neuro): normal cognition Extrem Other: Moving all extremities well without any obvious deformities Medical Decision Making Medical Decision Making MDM Narrative: Patient is very well known to this emergency department for similar complaints. She reports feeling safe and ready for discharge. I am comfortable discharging the patient at this time. Differential Diagnosis Differential Diagnoses: The differential diagnosis associated with the presentation includes Bipolar disorder Schizoaffective disorder Depression Auditory hallucinations Discharge Plan Discharge Clinical Impression: Borderline personality disorder Patient Disposition: Home, Self-Care Instructions: Borderline Personality Disorder (DC) Additional Instructions: Take all of your medications as prescribed. Return for any new or worsening symptoms Prescriptions: No Action metformin 500 mg tablet 500 mg PO BID pantoprazole 40 mg tablet,delayed release (DR/EC) 40 mg PO DAILY montelukast 10 mg tablet 10 mg PO DAILY lisinopril 5 mg tablet 5 mg PO DAILY mirtazapine 15 mg tablet 7.5 mg PO DAILY lurasidone [Latuda] 20 mg tablet 20 mg PO DAILY fluoxetine 40 mg capsule 40 mg PO BID atorvastatin 10 mg tablet 10 mg PO DAILY albuterol sulfate [Ventolin HFA] 90 mcg/actuation HFA aerosol inhaler 2 puff inhalation Q6H PRN (Reason: Shortness Of Breath Or Wheezing) trazodone 150 mg tablet 150 mg PO BEDTIME fluphenazine HCl 5 mg tablet 5 mg PO BID benztropine 1 mg tablet 1 mg PO BID hydroxyzine pamoate 50 mg capsule 100 mg PO BID Interventions: [place]-Suicide Risk Severity Scale Last Done: 05/26/23 12:54
== END 2023-05-26 13:52 | disposition home or self-care (01) ==
PROVIDERS: Emergency Provider Emergency Medicine Emergency Medical Services
DX: R44.0 Auditory hallucinations (principal); F60.3 Borderline personality disorder
CPT/HCPCS: 99283; 99284

== ENCOUNTER 2023-05-27 13:02 | Emergency (ER) | payer MEDICARE, MEDICAID, SELFPAY ==
[2023-05-27 13:11] VITALS: BP 131/78; BP 140/80; PULSE 87; PULSE 89; RESP 18; TEMP 36.2; O2SAT 97; BMI 30.9
--- NOTE | 2023-05-27 13:44 | ED.PSYCH ---
HPI - Psych General Chief Complaint: Psychiatric Symptoms Stated Complaint: SI Time Seen by Provider: 05/27/23 13:34 Source: patient and old records reviewed Mode of arrival: EMS Limitations: no limitations History of Present Illness HPI Narrative: 47-year-old female with a history of borderline personality disorder, bipolar disorder, chronic auditory hallucinations, anxiety, multiple suicide attempts with Tylenol overdose in the past?who presents to the ER from her [place] [facility] for evaluation of increased suicidal thoughts, anxiety that started today. She states she started to write down ways that she was thinking of killing herself. She states she was thinking of overdosing on aspirin. She denies going to the pharmacy in buying any medication or taking any medication today. She called 911 instead. She states she is very anxious and nervous. She is hearing voices that are telling her to do this. She has history of similar presentation and was seen here yesterday for the same. MD complaint: feels depressed, anxiety and hallucinations Onset (ago): hour(s) History of same: Yes Relieving factors: medication Exacerbating factors: none Associated psychiatric symptoms: depression, suicidal ideation and auditory hallucinations Associated symptoms: denies other symptoms Treatments prior to arrival: none If self harm: admits thoughts of self harm and has plan Details of plan: Aspirin overdose Related Data Home Medications Medication Instructions Recorded Confirmed lisinopril 5 mg tablet 5 mg PO DAILY 04/12/23 05/21/23 lurasidone 20 mg tablet (Latuda) 20 mg PO DAILY 04/12/23 05/21/23 metformin 500 mg tablet 500 mg PO BID 04/12/23 05/21/23 mirtazapine 15 mg tablet 7.5 mg PO DAILY 04/12/23 05/21/23 montelukast 10 mg tablet 10 mg PO DAILY 04/12/23 05/21/23 pantoprazole 40 mg tablet,delayed 40 mg PO DAILY 04/12/23 05/21/23 release atorvastatin 10 mg tablet 10 mg PO DAILY 04/24/23 05/21/23 fluoxetine 40 mg capsule 40 mg PO BID 04/24/23 05/21/23 albuterol sulfate 90 mcg/actuation 2 puff inhalation Q6H PRN 05/09/23 05/21/23 aerosol inhaler (Ventolin HFA) Shortness Of Breath Or Wheezing benztropine 1 mg tablet 1 mg PO BID 05/09/23 05/21/23 fluphenazine HCl 5 mg tablet 5 mg PO BID 05/09/23 05/21/23 hydroxyzine pamoate 50 mg capsule 100 mg PO BID 05/09/23 05/21/23 trazodone 150 mg tablet 150 mg PO BEDTIME 05/09/23 05/21/23 Allergies Allergy/AdvReac Type Severity Reaction Status Date / Time azithromycin [AZITHROMYCIN] Allergy Severe Rash Verified 05/26/23 12:54 Fish Containing Products Allergy Severe Anaphylaxis Verified 05/26/23 12:54 codeine [Codeine] Allergy Intermediate Rash Verified 05/26/23 12:54 Penicillins Allergy Intermediate Rash Verified 05/26/23 12:54 prednisone [Prednisone] Allergy Intermediate Rash Verified 05/26/23 12:54 Sulfa (Sulfonamide Allergy Intermediate Rash Verified 05/26/23 12:54 Antibiotics) [Sulfa (Sulfonamides)] ziprasidone [From Geodon] Allergy Intermediate dysuria, Verified 05/26/23 12:54 rash Review of Systems Review of Systems: Yes all other systems are reviewed and are negative [facility] Past Medical History Medical History Acetaminophen overdose Acetaminophen overdose Acute anxiety Borderline personality disorder Bronchitis Chest pain COVID COVID-19 Depression Diabetes type 2, controlled Dizziness Full body hives GERD (gastroesophageal reflux disease) History of attempted suicide History of non-suicidal self-harm Hyperlipidemia Hypomagnesemia Major depression MDD (major depressive disorder), recurrent episode, severe Mood disorder Overdose PTSD (post-traumatic stress disorder) Suicide attempt Suicide attempt Suicide attempt by acetaminophen overdose UTI (urinary tract infection) Social History Social History 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 Household Members Other:: [facility] Housing: Other Housing Other:: [facility] Do you presently have visiting nurse or other home services: No Unable to assess alcohol history related to: Unknown Alcohol intake: never Patient Tobacco Use Status: Current everyday Tobacco user Tobacco use type: Cigarette Cigarette Packs Per Day: 1 Cigarettes Per Day: 15 Years Smoked: 22 e-Cigarette/Vaping Use: Never Used Substance Use Type: Marijuana Advance Directives: No Advance Directives Information Provided: Yes service: No Current occupational status: unemployed and disabled Sexual orientation: Don't Know Physical Exam Vital Signs: Vital Signs: Last Vital Signs Temp 97.2 F 05/27/23 13:11 Pulse 89 05/27/23 13:11 Resp 18 05/27/23 13:11 BP 131/78 05/27/23 13:11 Pulse Ox 97 05/27/23 13:11 O2 Del Method Room Air 05/27/23 13:11 BMI result Body Mass Index 30.9 Appearance: Alert. Oriented X3. No acute distress. Head: normocephalic, atraumatic. Eyes: Pupils equal, round and reactive to light. ENT: Pharynx normal. No tonsillar swelling or exudate. Neck: Normal inspection. Neck supple. CVS: Normal heart rate and rhythm. Pulses normal. Respiratory: No respiratory distress. Breath sounds normal. Abdomen: Soft and nontender. +BS x4 Skin: Skin warm and dry. Normal skin color. Normal skin turgor. No rashes. Extremities: No lower extremity edema. No joint swelling. Well-healed self-inflicted scars on the bilateral forearms, no new cuts or wounds. Neuro/psych: Oriented X 3. No motor deficit. No sensory deficit. CN II-XII intact. Normal speech and cognition. Restless, anxious, ambulating around the behavioral pod. Reporting suicidal thoughts. Makes eye contact and converses appropriately reports auditory hallucinations which are chronic Medications Administered Discontinued Medications Generic Name Dose Route Start Last Admin Trade Name Elmer PRN Reason Stop Dose Admin Lorazepam 1 mg 05/27/23 13:43 05/27/23 13:50 Lorazepam 1 Mg Tablet PO 05/27/23 13:44 1 mg ONCE ONE Administration Nicotine 21 mg 05/27/23 13:43 05/27/23 13:50 Nicotine 21 Mg Patch.[id number] TRANSDERMA 05/27/23 13:44 21 mg ONCE ONE Administration Medical Decision Making Medical Decision Making MDM Narrative: 47-year-old female with multiple ER visits for auditory hallucinations and suicidal ideation presents to the ER for evaluation of the same. She did not overdose on any medications today. She states she called 911 before acting on her suicidal thoughts. She was just seen here yesterday and [facility] a few days before that. She was asking for Ativan and nicotine patch to calm her nerves. After these medications were administered patient was feeling better. She denies any current suicidal thoughts. She does continue to her voices but this is chronic and baseline for her. At this time comfortable discharge home back to the [place] [facility]. She was seen by the care team who is in agreement. Stable for discharge at this time Differential Diagnosis Differential Diagnoses: The differential diagnosis associated with the presentation includes Borderline personality disorder, PTSD, acute on chronic auditory hallucinations, low clinical suspicion for suicide attempt or overdose Admission/Observation Consideration of admission/observation: Escalation of care including admission/observation considered Suicidal thoughts with plan, considered observation/admission Consult Healthcare Provider Management of the patient was discussed with: Aircraft Instrument Engineer Lab Data MDM Lab Attestation statement: I reviewed the patient's lab results. Labs: Lab Results 05/27/23 05/27/23 05/27/23 Range/Units 14:06 14:06 14:07 Urine Color Yellow Urine Appearance Clear Urine pH 7.0 (5.0-9.0) Ur Specific Benson <= 1.005 (1.005-1.025) Urine Protein Negative (Neg-Trace) mg/dL Urine Glucose (UA) Negative (Negative) mg/dL Urine Ketones Negative (Negative) mg/dL Urine Blood Negative (Negative) Urine Nitrite Negative (Negative) Ur Leukocyte Esterase Negative (Negative) Urine Test NEGATIVE (NEGATIVE) Urine Opiates Screen Not Detected (Not Detect) Urine Fentanyl Screen Not Detected (Not Detect) Ur Barbiturates Screen Not Detected (Not Detect) Ur Phencyclidine Scrn Not Detected (Not Detect) Ur Amphetamines Screen Not Detected (Not Detect) U Benzodiazepines Scrn Not Detected (Not Detect) Urine Cocaine Screen Not Detected (Not Detect) U Marijuana (THC) Screen Not Detected (Not Detect) Independent Historian Clinical information obtained from an independent historian. History obtained from or confirmed by: EMS External Record Review External record reviewed: Outpatient record and Prior outpatient labs Tests considered The following testing was considered but not selected: Considered levels of acetaminophen, salicylates, labs. Chronic Conditions Patient?s care impacted by: Other (PTSD, borderline personality disorder) Social Determinants Patient?s care significantly limited by Social Determinants of Health including: Other Social Determinant of Health Critical Care Time Critical Care Time Critical Care Time: No Discharge Plan Discharge Clinical Impression: Borderline personality disorder, PTSD (post-traumatic stress disorder) Patient Disposition: Home, Self-Care Instructions: Borderline Personality Disorder (DC) Additional Instructions: Follow-up with your therapist. Take all her medications as prescribed. Call crisis if needed. Prescriptions: No Action metformin 500 mg tablet 500 mg PO BID pantoprazole 40 mg tablet,delayed release (DR/EC) 40 mg PO DAILY montelukast 10 mg tablet 10 mg PO DAILY lisinopril 5 mg tablet 5 mg PO DAILY mirtazapine 15 mg tablet 7.5 mg PO DAILY lurasidone [Latuda] 20 mg tablet 20 mg PO DAILY fluoxetine 40 mg capsule 40 mg PO BID atorvastatin 10 mg tablet 10 mg PO DAILY albuterol sulfate [Ventolin HFA] 90 mcg/actuation HFA aerosol inhaler 2 puff inhalation Q6H PRN (Reason: Shortness Of Breath Or Wheezing) trazodone 150 mg tablet 150 mg PO BEDTIME fluphenazine HCl 5 mg tablet 5 mg PO BID benztropine 1 mg tablet 1 mg PO BID hydroxyzine pamoate 50 mg capsule 100 mg PO BID Interventions: [place]-Suicide Risk Severity Scale Last Done: 05/27/23 13:14 ED Discharge Assessment Last Done: 05/27/23 14:27
[2023-05-27] MEDS: LORazepam 1 MG TABLET PO (13:50)
[2023-05-27] MEDS: Nicotine 21 MG PATCH.TD24 TRANSDERMA (13:50)
[2023-05-27 14:29] LABS: Appearance Urine Clear; Color Urine Yellow; Glucose Urine UA Negative (Negative); Leukocyte Esterase Urine Negative (Negative); Nitrite Urine Negative (Negative); Specific Gravity - Urine <= 1.005 (1.005-1.025); Urine Blood Negative (Negative); Urine Ketones Negative (Negative); Urine Protein Negative (Neg-Trace)
[2023-05-27 14:33] LABS: UPreg QC Valid YES; Urine Pregnancy NEGATIVE (NEGATIVE)
[2023-05-27 14:34] LABS: Amphetamine Screen Urine Not Detected (Not Detect); Barbiturates, Urine Not Detected (Not Detect); Benzodiazepines Screen Urine Not Detected (Not Detect); Cannabinoid Screen Urine Not Detected (Not Detect); Cocaine Screen Urine Not Detected (Not Detect); Fentanyl, urine Not Detected (Not Detect); Opiate Screen Urine Not Detected (Not Detect); Phencyclidine Screen Urine Not Detected (Not Detect)
== END 2023-05-27 14:41 | disposition home or self-care (01) ==
PROVIDERS: Physician Assistant; Emergency Provider Emergency Medicine Emergency Medical Services
DX: F33.1 Major depressive disorder, recurrent, moderate (principal); R45.851 Suicidal ideations; F60.3 Borderline personality disorder; F43.10 Post-traumatic stress disorder, unspecified; Z79.899 Other long term (current) drug therapy; F17.210 Nicotine dependence, cigarettes, uncomplicated; Z71.6 Tobacco abuse counseling
CPT/HCPCS: 80307; 81003; 81025; 99284

== ENCOUNTER 2023-05-27 18:24 | Emergency (ER) | payer MEDICARE, MEDICAID, SELFPAY ==
[2023-05-27 18:28] VITALS: BP 139/90; PULSE 88; RESP 18; TEMP 36.7; O2SAT 95
--- NOTE | 2023-05-27 18:30 | ED.GENADULT ---
HPI - General Adult General Chief complaint: Psychiatric Symptoms Stated complaint: HEARING VOICES AND SEEING THINGS Time Seen by Provider: 05/27/23 18:29 Source: patient, EMS and old records reviewed Mode of arrival: EMS Limitations: no limitations History of Present Illness HPI narrative: Patient is a 47 year old assigned female at with a history of PTSD, depression, GERD, borderline personality disorder, and DM presenting to the emergency department today with increased auditory hallucinations. Patient states that she has been hearing more things lately. Patient denies any suicidal or homicidal ideation, dizziness, lightheadedness, abdominal pain, nausea, vomiting, fever, chills, blurry vision, double vision, loss of vision, chest pain, difficulty breathing, shortness of breath, back pain, night sweats, pain with urination, increased urinary frequency, increased urinary urgency, blood in her urine or stool, syncope or a near syncopal episode, bowel incontinence, bladder incontinence, bowel retention, bladder retention, or any other complaints at this time. Relieving factors: none Exacerbating factors: none Associated symptoms: denies other symptoms Treatments prior to arrival: none Related Data Home Medications Medication Instructions Recorded Confirmed lisinopril 5 mg tablet 5 mg PO DAILY 04/12/23 05/21/23 lurasidone 20 mg tablet (Latuda) 20 mg PO DAILY 04/12/23 05/21/23 metformin 500 mg tablet 500 mg PO BID 04/12/23 05/21/23 mirtazapine 15 mg tablet 7.5 mg PO DAILY 04/12/23 05/21/23 montelukast 10 mg tablet 10 mg PO DAILY 04/12/23 05/21/23 pantoprazole 40 mg tablet,delayed 40 mg PO DAILY 04/12/23 05/21/23 release atorvastatin 10 mg tablet 10 mg PO DAILY 04/24/23 05/21/23 fluoxetine 40 mg capsule 40 mg PO BID 04/24/23 05/21/23 albuterol sulfate 90 mcg/actuation 2 puff inhalation Q6H PRN 05/09/23 05/21/23 aerosol inhaler (Ventolin HFA) Shortness Of Breath Or Wheezing benztropine 1 mg tablet 1 mg PO BID 05/09/23 05/21/23 fluphenazine HCl 5 mg tablet 5 mg PO BID 05/09/23 05/21/23 hydroxyzine pamoate 50 mg capsule 100 mg PO BID 05/09/23 05/21/23 trazodone 150 mg tablet 150 mg PO BEDTIME 05/09/23 05/21/23 Allergies Allergy/AdvReac Type Severity Reaction Status Date / Time azithromycin [AZITHROMYCIN] Allergy Severe Rash Verified 05/26/23 12:54 Fish Containing Products Allergy Severe Anaphylaxis Verified 05/26/23 12:54 codeine [Codeine] Allergy Intermediate Rash Verified 05/26/23 12:54 Penicillins Allergy Intermediate Rash Verified 05/26/23 12:54 prednisone [Prednisone] Allergy Intermediate Rash Verified 05/26/23 12:54 Sulfa (Sulfonamide Allergy Intermediate Rash Verified 05/26/23 12:54 Antibiotics) [Sulfa (Sulfonamides)] ziprasidone [From Geodon] Allergy Intermediate dysuria, Verified 05/26/23 12:54 rash Review of Systems Constitutional: Constitutional: Reports no additional constitutional complaints, Denies chills, Denies fever(s) and Denies night sweats Eyes: Eyes: Reports no additional eye complaints, Denies blurry vision, Denies change in vision, Denies diplopia, Denies eye discharge, Denies loss of vision and Denies eye pain ENT: Denies dizziness Cardiovascular: Cardiovascular: Reports no additional cardiovascular complaints, Denies chest pain, Denies lightheadedness, Denies Loss of Consciousness and Denies dyspnea Respiratory: Respiratory: Reports no additional respiratory complaints and Denies dyspnea Gastrointestinal: Gastrointestinal: Reports no additional gastrointestinal complaints, Denies abdominal pain, Denies melena, Denies hematochezia, Denies change in bowel habits and Denies change in stool character Genitourinary: Genitourinary: Denies hematuria, Denies urinary frequency, Denies dysuria, Denies urinary incontinence, Denies urinary hesitancy and Denies urinary urgency Musculoskeletal: Musculoskeletal: Reports no additional musculoskeletal complaints, Denies numbness and Denies tingling Neurologic: Denies dizziness, Denies loss of vision, Denies numbness and Denies tingling Psychiatric: Psychiatric: Reports no additional psychiatric complaints, Reports auditory hallucinations, Denies homicidal ideation and Denies suicidal ideation Endocrine: Endocrine: Reports no additional endocrine complaints Hematologic/Lymphatic: Hematologic/Lymphatic: Reports no additional hematologic/lymphatic complaints Allergic/Immunologic: Allergic/Immunologic: Reports no additional allergic/immunologic complaints PMFSH Past Medical History Attestation statement: The following information was validated with the patient. Source: old records reviewed and nursing notes reviewed Medical History Acetaminophen overdose Acetaminophen overdose Acute anxiety Borderline personality disorder Bronchitis Chest pain COVID COVID-19 Depression Diabetes type 2, controlled Dizziness Full body hives GERD (gastroesophageal reflux disease) History of attempted suicide History of non-suicidal self-harm Hyperlipidemia Hypomagnesemia Major depression MDD (major depressive disorder), recurrent episode, severe Mood disorder Overdose PTSD (post-traumatic stress disorder) Suicide attempt Suicide attempt Suicide attempt by acetaminophen overdose UTI (urinary tract infection) Social History Social History 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 Household Members Other:: detention Housing: Other Housing Other:: detention Do you presently have visiting nurse or other home services: No Unable to assess alcohol history related to: Unknown Alcohol intake: never Patient Tobacco Use Status: Current everyday Tobacco user Tobacco use type: Cigarette Cigarette Packs Per Day: 1 Cigarettes Per Day: 15 Years Smoked: 22 e-Cigarette/Vaping Use: Never Used Substance Use Type: Marijuana Advance Directives: No Advance Directives Information Provided: No Healthcare Proxy: No Guardian: No Patient : No service: No Current occupational status: unemployed and disabled Sexual orientation: Don't Know Physical Exam ED Vital Signs: Vital Signs - 24 hr 05/27/23 18:28 05/28/23 04:26 Temperature 98.0 F 98.2 F Pulse Rate 88 79 Respiratory Rate 18 16 Blood Pressure 139/90 H 140/87 H Pulse Oximetry 95 96 Oxygen Delivery Method Room Air Room Air BMI result Body Mass Index 30.0 Const General: cooperative, no acute distress, alert and awake Nutritional Appearance: well nourished Orientation/consciousness: patient oriented x3 Limitations: no limitations HENMT Head: Yes normal to inspection and Yes atraumatic Ears: hearing grossly normal bilaterally and external ears normal General nose exam: Normal external nose present, no nasal discharge noted and no epistaxis Face and sinus: Yes normal facial exam, No abrasion and No laceration Mouth: Normal oral and palatal mucosa present, no drooling and no muffled voice Eyes General: appearance normal, both eyes and all related structures Periorbital: periorbital findings normal Eyelids: Yes eyelids normal Conjunctivae: conjunctivae normal Pupils: Equal, round and reactive pupils present EOM: EOMs intact bilaterally Neck Neck: Yes normal visual inspection, Yes full ROM and Yes no lymphadenopathy Chest Chest palpation & inspection: normal inspection of the chest Resp Effort & Inspection: normal respiratory effort and able to speak in complete sentences GI Inspection: Yes normal to inspection Neuro General: patient oriented x3 and moves all extremities Cranial nerves: Yes Equal, round and reactive pupils present Cognition (Neuro): normal cognition Motor exam (neuro): 5/5 motor strength present throughout Sensory Exam: Normal double simultaneous stimulation for sensation Coordination: [id number] test normal Extrem General: Yes full ROM and Yes capillary refill normal Psych Appearance: grossly normal Mental Status: mental status grossly normal Affect: normal affect Attitude: cooperative Thought process: Normal thought process present Thought content: Normal thought content present Insight: Good insight present (Psych) Course Reevaluation(s) Reevaluation #1: seen by crisis [facility] Time: 14:54 Medical Decision Making Medical Decision Making MDM Narrative: Patient is a 47 year old assigned female at with a history of PTSD, GERD, DM, depression, and borderline personality disorder presenting to the emergency department today with an increase in auditory hallucinations. Patient's physical exam was as noted in the physical exam portion of this chart. Patient's blood work was unremarkable. Patient's urine showed no acute process. I explained my physical exam findings as well as all test results to the patient. I answered all questions asked by the patient. Patient is currently awaiting evaluation by the CARE team. Patient's disposition will depend on the CARE team evaluation. Patient requested to leave shortly after she arrived here however, the patient's detention staff refused to come and pick her up. I explained to the patient that she is unsafe to leave without a safe ride back to her detention. Patient will haev to wait until morning to be evaluated by CARE team or her detention staff can come pick her up. Differential Diagnosis Differential Diagnoses: The differential diagnosis associated with the presentation includes Increased auditory hallucinations Misuse of emergency resources Malingering Admission/Observation Consideration of admission/observation: Escalation of care including admission/observation considered Patient's disposition will depend on CARE team evaluation Lab Data [facility] Lab Attestation statement: I reviewed the patient's lab results. My interpretation of these studies and their corresponding values is that they are grossly normal. 05/28/23 07:57 05/28/23 07:57 Labs: Lab Results 05/27/23 05/27/23 05/27/23 Range/Units 19:00 19:00 19:00 WBC (4.8-10.8) X10*3/uL RBC (4.20-5.50) X10*6/uL Hgb (12.0-16.0) g/dl Hct (37.0-47.0) % MCV (80.0-98.0) fL MCH (27.0-33.0) pg MCHC (31.0-35.0) g/dl RDW (11.0-16.0) % Plt Count (160-400) X10*3/uL MPV (9.4-12.3) fL Immature Gran % (Auto) (0.0-0.4) % Neut % (Auto) (45-73) % Lymph % (Auto) (20-40) % [place] % (Auto) (2-11) % Eos % (Auto) (0-4) % Baso % (Auto) (0-2) % Lymph # (Auto) (1.2-4.9) X10*3/uL [place] # (Auto) (0.1-1.2) X10*3/uL Eos # (Auto) (0.0-0.4) X10*3/uL Baso # (Auto) (0.0-0.2) X10*3/uL Abs Immat Gran (auto) (0.00-0.03) X10*3/uL Absolute Neuts (auto) (2.0-8.3) x10*3/uL Absolute Nucleated RBC (0.0-0.012) X10*3/uL Nucleated RBC % (auto) (0.0-0.2) /100WBC Sodium (135-145) mmol/L Potassium (3.3-5.1) mmol/L Chloride (96-108) mmol/L Carbon Dioxide (22-29) mmol/L Anion Gap (12-20) BUN (9-16) mg/dL Creatinine (0.5-1.4) mg/dL Estim Creat Clear Calc Estimated GFR Random Glucose (60-115) mg/dL Calcium (8.4-10.2) mg/dL Total Bilirubin (0.0-1.0) mg/dL AST (5-31) U/L ALT (0-31) U/L Alkaline Phosphatase (39-117) U/L Total Protein (6.5-8.0) g/dL Albumin (3.5-5.0) g/dL Urine Color Yellow Urine Appearance Clear Urine pH 6.0 (5.0-9.0) Ur Specific [place] <= 1.005 (1.005-1.025) Urine Protein Negative (Neg-Trace) mg/dL Urine Glucose (UA) Negative (Negative) mg/dL Urine Ketones Negative (Negative) mg/dL Urine Blood Negative (Negative) Urine Nitrite Negative (Negative) Ur Leukocyte Esterase Trace H (Negative) Urine RBC 0-2 (0-2) /HPF Urine WBC 0-5 (0-5) /HPF Ur Squamous Epith Cells 3-5 (0-2) /HPF Urine Bacteria None Seen (None Seen) Hyaline Casts 0-2 (0-2) /LPF Urine Test NEGATIVE (NEGATIVE) Salicylates (15-30) mg/dL Urine Opiates Screen (Not Detect) Urine Fentanyl Screen (Not Detect) Acetaminophen (<30) mcg/mL Ur Barbiturates Screen (Not Detect) Ur Phencyclidine Scrn (Not Detect) Ur Amphetamines Screen (Not Detect) U Benzodiazepines Scrn (Not Detect) Urine Cocaine Screen (Not Detect) U Marijuana (THC) Screen (Not Detect) Ethyl Alcohol mg/dL COVID-19 (NICK) Negative (Negative) COVID-19 Clin Com See Note 05/27/23 05/28/23 05/28/23 Range/Units 19:00 07:57 07:57 WBC 5.8 (4.8-10.8) X10*3/uL RBC 4.16 L (4.20-5.50) X10*6/uL Hgb 11.9 L (12.0-16.0) g/dl Hct 37.1 (37.0-47.0) % MCV 89.2 (80.0-98.0) fL MCH 28.6 (27.0-33.0) pg MCHC 32.1 (31.0-35.0) g/dl RDW 13.1 (11.0-16.0) % Plt Count 259 (160-400) X10*3/uL MPV 9.7 (9.4-12.3) fL Immature Gran % (Auto) 0.2 (0.0-0.4) % Neut % (Auto) 50.2 (45-73) % Lymph % (Auto) 32.1 (20-40) % [place] % (Auto) 9.2 (2-11) % Eos % (Auto) 7.4 H (0-4) % Baso % (Auto) 0.9 (0-2) % Lymph # (Auto) 1.9 (1.2-4.9) X10*3/uL [place] # (Auto) 0.5 (0.1-1.2) X10*3/uL Eos # (Auto) 0.4 (0.0-0.4) X10*3/uL Baso # (Auto) 0.1 (0.0-0.2) X10*3/uL Abs Immat Gran (auto) 0.01 (0.00-0.03) X10*3/uL Absolute Neuts (auto) 2.9 (2.0-8.3) x10*3/uL Absolute Nucleated RBC 0.000 (0.0-0.012) X10*3/uL Nucleated RBC % (auto) 0.0 (0.0-0.2) /100WBC Sodium 143 (135-145) mmol/L Potassium 3.9 (3.3-5.1) mmol/L Chloride 108 (96-108) mmol/L Carbon Dioxide 25 (22-29) mmol/L Anion Gap 13 (12-20) BUN 9 (9-16) mg/dL Creatinine 0.76 (0.5-1.4) mg/dL Estim Creat Clear Calc 98.6 Estimated GFR > 60 Random Glucose 94 (60-115) mg/dL Calcium 9.2 (8.4-10.2) mg/dL Total Bilirubin 0.2 (0.0-1.0) mg/dL AST 19 (5-31) U/L ALT 15 (0-31) U/L Alkaline Phosphatase 100 (39-117) U/L Total Protein 6.9 (6.5-8.0) g/dL Albumin 4.0 (3.5-5.0) g/dL Urine Color Urine Appearance Urine pH (5.0-9.0) Ur Specific [place] (1.005-1.025) Urine Protein (Neg-Trace) mg/dL Urine Glucose (UA) (Negative) mg/dL Urine Ketones (Negative) mg/dL Urine Blood (Negative) Urine Nitrite (Negative) Ur Leukocyte Esterase (Negative) Urine RBC (0-2) /HPF Urine WBC (0-5) /HPF Ur Squamous Epith Cells (0-2) /HPF Urine Bacteria (None Seen) Hyaline Casts (0-2) /LPF Urine Test (NEGATIVE) Salicylates (15-30) mg/dL Urine Opiates Screen Not Detected (Not Detect) Urine Fentanyl Screen Not Detected (Not Detect) Acetaminophen (<30) mcg/mL Ur Barbiturates Screen Not Detected (Not Detect) Ur Phencyclidine Scrn Not Detected (Not Detect) Ur Amphetamines Screen Not Detected (Not Detect) U Benzodiazepines Scrn Not Detected (Not Detect) Urine Cocaine Screen Not Detected (Not Detect) U Marijuana (THC) Screen Not Detected (Not Detect) Ethyl Alcohol < 10 mg/dL COVID-19 (NICK) (Negative) COVID-19 Clin Com 05/28/23 Range/Units 07:57 WBC (4.8-10.8) X10*3/uL RBC (4.20-5.50) X10*6/uL Hgb (12.0-16.0) g/dl Hct (37.0-47.0) % MCV (80.0-98.0) fL MCH (27.0-33.0) pg MCHC (31.0-35.0) g/dl RDW (11.0-16.0) % Plt Count (160-400) X10*3/uL MPV (9.4-12.3) fL Immature Gran % (Auto) (0.0-0.4) % Neut % (Auto) (45-73) % Lymph % (Auto) (20-40) % [place] % (Auto) (2-11) % Eos % (Auto) (0-4) % Baso % (Auto) (0-2) % Lymph # (Auto) (1.2-4.9) X10*3/uL [place] # (Auto) (0.1-1.2) X10*3/uL Eos # (Auto) (0.0-0.4) X10*3/uL Baso # (Auto) (0.0-0.2) X10*3/uL Abs Immat Gran (auto) (0.00-0.03) X10*3/uL Absolute Neuts (auto) (2.0-8.3) x10*3/uL Absolute Nucleated RBC (0.0-0.012) X10*3/uL Nucleated RBC % (auto) (0.0-0.2) /100WBC Sodium (135-145) mmol/L Potassium (3.3-5.1) mmol/L Chloride (96-108) mmol/L Carbon Dioxide (22-29) mmol/L Anion Gap (12-20) BUN (9-16) mg/dL Creatinine (0.5-1.4) mg/dL Estim Creat Clear Calc Estimated GFR Random Glucose (60-115) mg/dL Calcium (8.4-10.2) mg/dL Total Bilirubin (0.0-1.0) mg/dL AST (5-31) U/L ALT (0-31) U/L Alkaline Phosphatase (39-117) U/L Total Protein (6.5-8.0) g/dL Albumin (3.5-5.0) g/dL Urine Color Urine Appearance Urine pH (5.0-9.0) Ur Specific [place] (1.005-1.025) Urine Protein (Neg-Trace) mg/dL Urine Glucose (UA) (Negative) mg/dL Urine Ketones (Negative) mg/dL Urine Blood (Negative) Urine Nitrite (Negative) Ur Leukocyte Esterase (Negative) Urine RBC (0-2) /HPF Urine WBC (0-5) /HPF Ur Squamous Epith Cells (0-2) /HPF Urine Bacteria (None Seen) Hyaline Casts (0-2) /LPF Urine Test (NEGATIVE) Salicylates < 5.0 L (15-30) mg/dL Urine Opiates Screen (Not Detect) Urine Fentanyl Screen (Not Detect) Acetaminophen < 17 (<30) mcg/mL Ur Barbiturates Screen (Not Detect) Ur Phencyclidine Scrn (Not Detect) Ur Amphetamines Screen (Not Detect) U Benzodiazepines Scrn (Not Detect) Urine Cocaine Screen (Not Detect) U Marijuana (THC) Screen (Not Detect) Ethyl Alcohol mg/dL COVID-19 (NICK) (Negative) COVID-19 Clin Com Independent Historian Clinical information obtained from an independent historian. History obtained from or confirmed by: EMS (EMS provided additional history and confirmed the history provided by the patient. ) External Record Review External record reviewed: Other (reviewed all previous ED visits) Critical Care Time Critical Care Time Critical Care Time: Yes Total Critical Care Time: 40 Attestation: I spent 40 minutes of Critical Care Time with this patient. This does not include time spent on separately reported billable procedures. Discharge Plan Discharge Clinical Impression: Auditory hallucinations, Borderline personality disorder Patient Disposition: Home, Self-Care Instructions: Borderline Personality Disorder (DC) Prescriptions: No Action metformin 500 mg tablet 500 mg PO BID pantoprazole 40 mg tablet,delayed release (DR/EC) 40 mg PO DAILY montelukast 10 mg tablet 10 mg PO DAILY lisinopril 5 mg tablet 5 mg PO DAILY mirtazapine 15 mg tablet 7.5 mg PO DAILY lurasidone [Latuda] 20 mg tablet 20 mg PO DAILY fluoxetine 40 mg capsule 40 mg PO BID atorvastatin 10 mg tablet 10 mg PO DAILY albuterol sulfate [Ventolin HFA] 90 mcg/actuation HFA aerosol inhaler 2 puff inhalation Q6H PRN (Reason: Shortness Of Breath Or Wheezing) trazodone 150 mg tablet 150 mg PO BEDTIME fluphenazine HCl 5 mg tablet 5 mg PO BID benztropine 1 mg tablet 1 mg PO BID hydroxyzine pamoate 50 mg capsule 100 mg PO BID Referrals: Physician,Nonstaff [Physician] - 3 days Interventions: [place]-Suicide Risk Severity Scale Last Done: 05/28/23 14:06
[2023-05-27 19:15] LABS: UPreg QC Valid YES; Urine Pregnancy NEGATIVE (NEGATIVE)
[2023-05-27 19:16] LABS: Appearance Urine Clear; Color Urine Yellow; Glucose Urine UA Negative (Negative); Leukocyte Esterase Urine Trace (Negative); Nitrite Urine Negative (Negative); Specific Gravity - Urine <= 1.005 (1.005-1.025); UMIC TRIGGER UA YES; Urine Blood Negative (Negative); Urine Ketones Negative (Negative); Urine Protein Negative (Neg-Trace)
[2023-05-27 19:18] LABS: Amphetamine Screen Urine Not Detected (Not Detect); Barbiturates, Urine Not Detected (Not Detect); Benzodiazepines Screen Urine Not Detected (Not Detect); COVID-19 Test Negative (Negative); Cannabinoid Screen Urine Not Detected (Not Detect); Cocaine Screen Urine Not Detected (Not Detect); Fentanyl, urine Not Detected (Not Detect); IDNOW Serial# 08D9AD1C; Opiate Screen Urine Not Detected (Not Detect); Phencyclidine Screen Urine Not Detected (Not Detect)
[2023-05-27 19:21] LABS: Bacteria Urine None Seen (None Seen); Hyaline Casts Urine 0-2 /LPF (0-2); RBC Urine 0-2 /HPF (0-2); WBC Urine 0-5 /HPF (0-5)
--- NOTE | 2023-05-27 19:44 | PC.NURSE ---
assumed care of pt at 1900 - pt eating dinner and ambulating around unit slightly restless continuously asking if she can go back to her custodial. pt currently denying SI/HI , in no apparent distress. requesting to be discharged. seen here earlier today and discharged back to facility. will alert provider that pt requesting to go home. will ctm.
[2023-05-28 04:26] VITALS: BP 140/87; PULSE 79; RESP 16; TEMP 36.8; O2SAT 96
[2023-05-28 08:20] LABS: MANUAL DIFF FLAG NO
[2023-05-28 08:22] LABS: Basophils Absolute Auto 0.1 X10*3/uL (0.0-0.2); Basophils Percent Auto 0.9 % (0-2); Eosinophils Absolute Auto 0.4 X10*3/uL (0.0-0.4); Eosinophils Percent Auto 7.4 % (0-4); Hematocrit 37.1 % (37.0-47.0); Hemoglobin 11.9 g/dl (12.0-16.0); Imm Gran Abs Auto 0.01 X10*3/uL (0.00-0.03); Imm Gran Pct Auto 0.2 % (0.0-0.4); Lymphocytes Absolute Auto 1.9 X10*3/uL (1.2-4.9); Lymphocytes Percent Auto 32.1 % (20-40); Mean Corpuscular HGB Conc 32.1 g/dl (31.0-35.0); Mean Corpuscular Hemoglobin 28.6 pg (27.0-33.0); Mean Corpuscular Volume 89.2 fL (80.0-98.0); Mean Platelet Volume 9.7 fL (9.4-12.3); Monocytes Absolute Auto 0.5 X10*3/uL (0.1-1.2); Monocytes Percent Auto 9.2 % (2-11); Neutrophils Absolute Auto 2.9 x10*3/uL (2.0-8.3); Neutrophils Percent Auto 50.2 % (45-73); Platelet Count 259 X10*3/uL (160-400); Red Blood Count 4.16 X10*6/uL (4.20-5.50); Red Cell Distribution Width 13.1 % (11.0-16.0); White Blood Count 5.8 X10*3/uL (4.8-10.8)
[2023-05-28 08:44] LABS: Alanine Aminotransferase 15 U/L (0-31); Alkaline Phosphatase 100 U/L (39-117); Aspartate Amino Transferase 19 U/L (5-31); Bilirubin Total 0.2 mg/dL (0.0-1.0); Blood Urea Nitrogen 9 mg/dL (9-16); Calcium 9.2 mg/dL (8.4-10.2); Chloride 108 mmol/L (96-108); Creatinine Clr Calc Pharmacy 98.6; Estimated Glomerular Filt Rate > 60; Ethanol < 10 mg/dL; Glucose Random 94 mg/dL (60-115); Potassium 3.9 mmol/L (3.3-5.1); Sodium 143 mmol/L (135-145); Total Protein 6.9 g/dL (6.5-8.0)
[2023-05-28 09:07] LABS: Acetaminophen LAB < 17 mcg/mL (<30); Salicylate < 5.0 mg/dL (15-30)
[2023-05-28 11:48] LABS: Anion Gap 13 (12-20)
[2023-05-28 11:55] LABS: Carbon Dioxide 25 mmol/L (22-29)
== END 2023-05-28 15:12 | disposition home or self-care (01) ==
PROVIDERS: Physician Assistant Medical; Emergency Provider Internal Medicine; PCP Nurse Practitioner Family
DX: F33.1 Major depressive disorder, recurrent, moderate (principal); R44.0 Auditory hallucinations; F17.210 Nicotine dependence, cigarettes, uncomplicated; Z20.822 Contact with and (suspected) exposure to COVID-19; Z20.828 Contact with and (suspected) exposure to other viral communicable diseases; Z79.899 Other long term (current) drug therapy; Z71.6 Tobacco abuse counseling
CPT/HCPCS: 80053; 80143; 80179; 80307; 81001; 81003; 81025; 85025; 87635; 99284; S9485

== ENCOUNTER 2023-05-28 17:54 | Emergency (ER) | payer MEDICARE, MEDICAID, SELFPAY ==
[2023-05-28 18:00] VITALS: BP 148/86; PULSE 117; O2SAT 98
[2023-05-28 18:07] VITALS: BP 158/104; PULSE 103; RESP 18; TEMP 37.5; O2SAT 97; BMI 38.1
--- NOTE | 2023-05-28 18:07 | ECG_ITS ---
Test Reason : pain Blood Pressure : / mmHG Vent. Rate : 090 BPM Atrial Rate : 090 BPM P-R Int : 190 ms QRS Dur : 082 ms QT Int : 364 ms P-R-T Axes : 062 035 049 degrees QTc Int : 445 ms Normal sinus rhythm Normal ECG When compared with ECG of 06-MAY-2023 23:29, QT has shortened Referred By: Milton Stevens Electronically Signed By:JESU EASTMAN
--- NOTE | 2023-05-28 18:19 | ED.GENADULT ---
HPI - General Adult General Chief complaint: Overdose Stated complaint: SI/OD Time Seen by Provider: 05/28/23 18:05 Source: patient, RN notes reviewed and old records reviewed Mode of arrival: EMS Limitations: no limitations History of Present Illness HPI narrative: A 47-year-old female with past medical history significant for type 2 diabetes, borderline personality disorder, frequent ED visits presents for evaluation after a suicide attempt. Patient reports that she went to the store to buy a bottle of Tylenol and she took the entire bottle The patient arrives via EMS with a Jose eat of the transaction that show she about 1 bottle of Tylenol at 5:19 p.m. today. She brought the empty bottle with her that was for acetaminophen 500 mg and contain 24 tablets. Patient reports that she took the medication immediately after purchasing it and arrives just under 1 hour after purchasing the medication. Reports that she vomited twice afterwards due to the nausea but did not intentionally vomit She reports that she saw 2 of the tablets come back up Patient denies any other co-ingestion. Patient reports that she did not take her morning medications today Related Data Home Medications Medication Instructions Recorded Confirmed lisinopril 5 mg tablet 5 mg PO DAILY 04/12/23 05/28/23 lurasidone 20 mg tablet (Latuda) 20 mg PO DAILY 04/12/23 05/28/23 metformin 500 mg tablet 500 mg PO BID 04/12/23 05/28/23 mirtazapine 15 mg tablet 7.5 mg PO DAILY 04/12/23 05/28/23 montelukast 10 mg tablet 10 mg PO DAILY 04/12/23 05/28/23 pantoprazole 40 mg tablet,delayed 40 mg PO DAILY 04/12/23 05/28/23 release atorvastatin 10 mg tablet 10 mg PO DAILY 04/24/23 05/28/23 fluoxetine 40 mg capsule 40 mg PO BID 04/24/23 05/28/23 albuterol sulfate 90 mcg/actuation 2 puff inhalation Q6H PRN 05/09/23 05/28/23 aerosol inhaler (Ventolin HFA) Shortness Of Breath Or Wheezing benztropine 1 mg tablet 1 mg PO BID 05/09/23 05/28/23 fluphenazine HCl 5 mg tablet 5 mg PO BID 05/09/23 05/28/23 hydroxyzine pamoate 50 mg capsule 100 mg PO BID 05/09/23 05/28/23 trazodone 150 mg tablet 150 mg PO BEDTIME 05/09/23 05/28/23 naproxen 375 mg tablet 375 mg PO BID 05/28/23 05/28/23 ondansetron 4 mg disintegrating 4 mg PO Q6H PRN Nausea 05/28/23 05/28/23 tablet prazosin 2 mg capsule 4 mg PO BEDTIME 05/28/23 05/28/23 Allergies Allergy/AdvReac Type Severity Reaction Status Date / Time azithromycin [AZITHROMYCIN] Allergy Severe Rash Verified 05/26/23 12:54 Fish Containing Products Allergy Severe Anaphylaxis Verified 05/26/23 12:54 codeine [Codeine] Allergy Intermediate Rash Verified 05/26/23 12:54 Penicillins Allergy Intermediate Rash Verified 05/26/23 12:54 prednisone [Prednisone] Allergy Intermediate Rash Verified 05/26/23 12:54 Sulfa (Sulfonamide Allergy Intermediate Rash Verified 05/26/23 12:54 Antibiotics) [Sulfa (Sulfonamides)] ziprasidone [From Geodon] Allergy Intermediate dysuria, Verified 05/26/23 12:54 rash Review of Systems Constitutional: Constitutional: Denies chills and Denies fever(s) Cardiovascular: Cardiovascular: Denies chest pain and Denies dyspnea Respiratory: Respiratory: Denies dyspnea Gastrointestinal: Gastrointestinal: Denies abdominal pain, Reports nausea and Reports vomiting Musculoskeletal: Musculoskeletal: Denies back pain Psychiatric: Psychiatric: Reports auditory hallucinations and Reports suicidal ideation PMFSH Past Medical History Medical History Acetaminophen overdose Acetaminophen overdose Acute anxiety Borderline personality disorder Bronchitis Chest pain COVID COVID-19 Depression Diabetes type 2, controlled Dizziness Full body hives GERD (gastroesophageal reflux disease) History of attempted suicide History of non-suicidal self-harm Hyperlipidemia Hypomagnesemia Major depression MDD (major depressive disorder), recurrent episode, severe Mood disorder Overdose PTSD (post-traumatic stress disorder) Suicide attempt Suicide attempt Suicide attempt by acetaminophen overdose UTI (urinary tract infection) Social History Social History 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 Household Members Other:: residential Housing: Other Housing Other:: residential Do you presently have visiting nurse or other home services: No Unable to assess alcohol history related to: Unknown Alcohol intake: never Patient Tobacco Use Status: Current everyday Tobacco user Tobacco use type: Cigarette Cigarette Packs Per Day: 1 Cigarettes Per Day: 15 Years Smoked: 22 e-Cigarette/Vaping Use: Never Used Substance Use Type: Marijuana Advance Directives: No Advance Directives Information Provided: Yes service: No Current occupational status: unemployed and disabled Sexual orientation: Don't Know Physical Exam ED Vital Signs: Vital Signs - 24 hr 05/28/23 18:07 05/28/23 18:55 05/28/23 19:59 Temperature 99.5 F 99.3 F 98.0 F Pulse Rate 103 H 91 82 Respiratory Rate 18 17 18 Blood Pressure 158/104 H 148/89 H 147/84 H Pulse Oximetry 97 95 95 Oxygen Delivery Method Room Air Room Air Room Air 05/28/23 21:55 05/28/23 22:00 05/29/23 11:17 Temperature 98.4 F 98.0 F 97.6 F Pulse Rate 67 74 75 Respiratory Rate 17 18 15 Blood Pressure 140/89 H 143/97 H 164/79 H Pulse Oximetry 96 98 98 Oxygen Delivery Method Room Air Room Air Room Air BMI result Body Mass Index 38.1 Const General: healthy appearing, comfortable, no acute distress, alert and awake Nutritional Appearance: well nourished Orientation/consciousness: patient oriented x3 HENMT Head: Yes normocephalic and Yes atraumatic Eyes Eyelids: Yes eyelids normal Conjunctivae: conjunctivae normal Sclerae: sclerae normal Corneas: corneas normal Pupils: Equal, round and reactive pupils present EOM: EOMs intact bilaterally Neck Neck: Yes full ROM Resp Effort & Inspection: normal respiratory effort, able to speak in complete sentences and not labored GI Inspection: No distended Palpation (GI): Soft to palpation, not firm, nontender, no guarding and not rigid Auscultation: normoactive bowel sounds Skin General skin exam: no rashes or lesions noted and elasticity normal Neuro General: patient oriented x3 Cranial nerves: Yes Equal, round and reactive pupils present and Yes Bilaterally intact EOM present Cognition (Neuro): normal cognition Extrem Other: Moving all extremities well without any obvious deformities Course Reevaluation(s) Reevaluation #1: Patient's 4 hour Tylenol level is 69 which is below the threshold for treatment. Time: 22:11 Reevaluation #2: Discussed with poison control cold-like is to draw a 6 hour after ingestion LFT and Tylenol level. Time: 22:43 Reevaluation #3: Patient's Tylenol level is trending downward is 49. Still well below the threshold to treat. At this time she is medically cleared for care to evaluation Time: 00:04 Consultations Consultation #1: Patient now is awake, alert, oriented x3, regret her action yesterday, no more SI or HI, patient will be discharged back to residential who will come and pick her up. Time: 12:52 Medications Administered Discontinued Medications Generic Name Dose Route Start Last Admin Trade Name Elmer PRN Reason Stop Dose Admin Charcoal 100 gm 05/28/23 18:06 05/28/23 18:36 Activated Charcoal 50 Gm/240 Ml Oral.Susp PO 05/28/23 18:07 50 gm ONCE ONE Administration Sodium Chloride 1,000 mls @ 999 mls/hr 05/28/23 18:30 05/28/23 22:05 Ns IV 05/28/23 19:30 Infused .Q1H1M YULY Infusion Medical Decision Making Medical Decision Making MDM Narrative: 47-year-old female presents for evaluation of a reported Tylenol overdose. She reported taking a maximum of 12 g of Tylenol approximately 1 hour prior to arrival. I ordered activated charcoal, labs are pending. I ordered stat labs as well as a 4 hour Tylenol level. Will discuss with poison Control. Patient's vital signs are currently stable Differential Diagnosis Differential Diagnoses: The differential diagnosis associated with the presentation includes Tylenol overdose Toxic ingestion Suicidal ideation Depression Auditory hallucinations Bipolar disorder Schizophrenia Lab Data 05/28/23 18:48 05/28/23 18:48 Labs: Lab Results 05/28/23 05/28/23 05/28/23 Range/Units 18:48 18:48 18:48 WBC 6.0 (4.8-10.8) X10*3/uL RBC 3.75 L (4.20-5.50) X10*6/uL Hgb 11.0 L (12.0-16.0) g/dl Hct 32.9 L (37.0-47.0) % MCV 87.7 (80.0-98.0) fL MCH 29.3 (27.0-33.0) pg MCHC 33.4 (31.0-35.0) g/dl RDW 13.0 (11.0-16.0) % Plt Count 281 (160-400) X10*3/uL MPV 9.9 (9.4-12.3) fL Immature Gran % (Auto) 0.2 (0.0-0.4) % Neut % (Auto) 62.8 (45-73) % Lymph % (Auto) 21.9 (20-40) % [place] % (Auto) 9.4 (2-11) % Eos % (Auto) 5.2 H (0-4) % Baso % (Auto) 0.5 (0-2) % Lymph # (Auto) 1.3 (1.2-4.9) X10*3/uL [place] # (Auto) 0.6 (0.1-1.2) X10*3/uL Eos # (Auto) 0.3 (0.0-0.4) X10*3/uL Baso # (Auto) 0.0 (0.0-0.2) X10*3/uL Abs Immat Gran (auto) 0.01 (0.00-0.03) X10*3/uL Absolute Neuts (auto) 3.8 (2.0-8.3) x10*3/uL Absolute Nucleated RBC 0.000 (0.0-0.012) X10*3/uL Nucleated RBC % (auto) 0.0 (0.0-0.2) /100WBC Smear Tech's Comments VERIFIED Sodium 140 (135-145) mmol/L Potassium 3.8 (3.3-5.1) mmol/L Chloride 107 (96-108) mmol/L Carbon Dioxide 24 (22-29) mmol/L Anion Gap 13 (12-20) BUN 10 (9-16) mg/dL Creatinine 0.81 (0.5-1.4) mg/dL Estim Creat Clear Calc 101.2 Estimated GFR > 60 Random Glucose 115 (60-115) mg/dL Calcium 9.1 (8.4-10.2) mg/dL Phosphorus 2.9 (2.7-4.5) mg/dL Magnesium 1.8 (1.6-2.6) mg/dL Total Bilirubin 0.1 (0.0-1.0) mg/dL AST 22 (5-31) U/L ALT 17 (0-31) U/L Alkaline Phosphatase 94 (39-117) U/L Total Protein 7.0 (6.5-8.0) g/dL Albumin 3.9 (3.5-5.0) g/dL Lipase 15 (8-78) U/L Urine Color Urine Appearance Urine pH (5.0-9.0) Ur Specific [place] (1.005-1.025) Urine Protein (Neg-Trace) mg/dL Urine Glucose (UA) (Negative) mg/dL Urine Ketones (Negative) mg/dL Urine Blood (Negative) Urine Nitrite (Negative) Ur Leukocyte Esterase (Negative) Urine RBC (0-2) /HPF Urine WBC (0-5) /HPF Ur Squamous Epith Cells (0-2) /HPF Urine Bacteria (None Seen) Hyaline Casts (0-2) /LPF Salicylates < 5.0 L (15-30) mg/dL Urine Opiates Screen (Not Detect) Urine Fentanyl Screen (Not Detect) Acetaminophen < 17 (<30) mcg/mL Ur Barbiturates Screen (Not Detect) Ur Phencyclidine Scrn (Not Detect) Ur Amphetamines Screen (Not Detect) U Benzodiazepines Scrn (Not Detect) Urine Cocaine Screen (Not Detect) U Marijuana (THC) Screen (Not Detect) Ethyl Alcohol mg/dL 05/28/23 05/28/23 05/28/23 Range/Units 18:48 18:48 18:48 WBC (4.8-10.8) X10*3/uL RBC (4.20-5.50) X10*6/uL Hgb (12.0-16.0) g/dl Hct (37.0-47.0) % MCV (80.0-98.0) fL MCH (27.0-33.0) pg MCHC (31.0-35.0) g/dl RDW (11.0-16.0) % Plt Count (160-400) X10*3/uL MPV (9.4-12.3) fL Immature Gran % (Auto) (0.0-0.4) % Neut % (Auto) (45-73) % Lymph % (Auto) (20-40) % [place] % (Auto) (2-11) % Eos % (Auto) (0-4) % Baso % (Auto) (0-2) % Lymph # (Auto) (1.2-4.9) X10*3/uL [place] # (Auto) (0.1-1.2) X10*3/uL Eos # (Auto) (0.0-0.4) X10*3/uL Baso # (Auto) (0.0-0.2) X10*3/uL Abs Immat Gran (auto) (0.00-0.03) X10*3/uL Absolute Neuts (auto) (2.0-8.3) x10*3/uL Absolute Nucleated RBC (0.0-0.012) X10*3/uL Nucleated RBC % (auto) (0.0-0.2) /100WBC Smear Tech's Comments Sodium (135-145) mmol/L Potassium (3.3-5.1) mmol/L Chloride (96-108) mmol/L Carbon Dioxide (22-29) mmol/L Anion Gap (12-20) BUN (9-16) mg/dL Creatinine (0.5-1.4) mg/dL Estim Creat Clear Calc Estimated GFR Random Glucose (60-115) mg/dL Calcium (8.4-10.2) mg/dL Phosphorus (2.7-4.5) mg/dL Magnesium (1.6-2.6) mg/dL Total Bilirubin (0.0-1.0) mg/dL AST (5-31) U/L ALT (0-31) U/L Alkaline Phosphatase (39-117) U/L Total Protein (6.5-8.0) g/dL Albumin (3.5-5.0) g/dL Lipase (8-78) U/L Urine Color Yellow Urine Appearance Clear Urine pH 6.0 (5.0-9.0) Ur Specific [place] <= 1.005 (1.005-1.025) Urine Protein Negative (Neg-Trace) mg/dL Urine Glucose (UA) Negative (Negative) mg/dL Urine Ketones Negative (Negative) mg/dL Urine Blood Negative (Negative) Urine Nitrite Negative (Negative) Ur Leukocyte Esterase Negative (Negative) Urine RBC 0-2 (0-2) /HPF Urine WBC 0-5 (0-5) /HPF Ur Squamous Epith Cells 0-2 (0-2) /HPF Urine Bacteria None Seen (None Seen) Hyaline Casts 0-2 (0-2) /LPF Salicylates (15-30) mg/dL Urine Opiates Screen (Not Detect) Urine Fentanyl Screen (Not Detect) Acetaminophen < 17 (<30) mcg/mL Ur Barbiturates Screen (Not Detect) Ur Phencyclidine Scrn (Not Detect) Ur Amphetamines Screen (Not Detect) U Benzodiazepines Scrn (Not Detect) Urine Cocaine Screen (Not Detect) U Marijuana (THC) Screen (Not Detect) Ethyl Alcohol < 10 mg/dL 05/28/23 05/28/23 05/28/23 Range/Units 18:48 21:44 23:32 WBC (4.8-10.8) X10*3/uL RBC (4.20-5.50) X10*6/uL Hgb (12.0-16.0) g/dl Hct (37.0-47.0) % MCV (80.0-98.0) fL MCH (27.0-33.0) pg MCHC (31.0-35.0) g/dl RDW (11.0-16.0) % Plt Count (160-400) X10*3/uL MPV (9.4-12.3) fL Immature Gran % (Auto) (0.0-0.4) % Neut % (Auto) (45-73) % Lymph % (Auto) (20-40) % [place] % (Auto) (2-11) % Eos % (Auto) (0-4) % Baso % (Auto) (0-2) % Lymph # (Auto) (1.2-4.9) X10*3/uL [place] # (Auto) (0.1-1.2) X10*3/uL Eos # (Auto) (0.0-0.4) X10*3/uL Baso # (Auto) (0.0-0.2) X10*3/uL Abs Immat Gran (auto) (0.00-0.03) X10*3/uL Absolute Neuts (auto) (2.0-8.3) x10*3/uL Absolute Nucleated RBC (0.0-0.012) X10*3/uL Nucleated RBC % (auto) (0.0-0.2) /100WBC Smear Tech's Comments Sodium 141 (135-145) mmol/L Potassium 3.9 (3.3-5.1) mmol/L Chloride 110 H (96-108) mmol/L Carbon Dioxide 26 (22-29) mmol/L Anion Gap 9 L (12-20) BUN 9 (9-16) mg/dL Creatinine 0.81 (0.5-1.4) mg/dL Estim Creat Clear Calc 101.2 Estimated GFR > 60 Random Glucose 97 (60-115) mg/dL Calcium 8.4 D (8.4-10.2) mg/dL Phosphorus (2.7-4.5) mg/dL Magnesium (1.6-2.6) mg/dL Total Bilirubin 0.1 (0.0-1.0) mg/dL AST 15 (5-31) U/L ALT 14 (0-31) U/L Alkaline Phosphatase 85 (39-117) U/L Total Protein 6.1 L (6.5-8.0) g/dL Albumin 3.6 (3.5-5.0) g/dL Lipase 15 (8-78) U/L Urine Color Urine Appearance Urine pH (5.0-9.0) Ur Specific [place] (1.005-1.025) Urine Protein (Neg-Trace) mg/dL Urine Glucose (UA) (Negative) mg/dL Urine Ketones (Negative) mg/dL Urine Blood (Negative) Urine Nitrite (Negative) Ur Leukocyte Esterase (Negative) Urine RBC (0-2) /HPF Urine WBC (0-5) /HPF Ur Squamous Epith Cells (0-2) /HPF Urine Bacteria (None Seen) Hyaline Casts (0-2) /LPF Salicylates (15-30) mg/dL Urine Opiates Screen Not Detected (Not Detect) Urine Fentanyl Screen Not Detected (Not Detect) Acetaminophen 69 H* (<30) mcg/mL Ur Barbiturates Screen Not Detected (Not Detect) Ur Phencyclidine Scrn Not Detected (Not Detect) Ur Amphetamines Screen Not Detected (Not Detect) U Benzodiazepines Scrn Not Detected (Not Detect) Urine Cocaine Screen Not Detected (Not Detect) U Marijuana (THC) Screen Not Detected (Not Detect) Ethyl Alcohol mg/dL 05/28/23 Range/Units 23:32 WBC (4.8-10.8) X10*3/uL RBC (4.20-5.50) X10*6/uL Hgb (12.0-16.0) g/dl Hct (37.0-47.0) % MCV (80.0-98.0) fL MCH (27.0-33.0) pg MCHC (31.0-35.0) g/dl RDW (11.0-16.0) % Plt Count (160-400) X10*3/uL MPV (9.4-12.3) fL Immature Gran % (Auto) (0.0-0.4) % Neut % (Auto) (45-73) % Lymph % (Auto) (20-40) % [place] % (Auto) (2-11) % Eos % (Auto) (0-4) % Baso % (Auto) (0-2) % Lymph # (Auto) (1.2-4.9) X10*3/uL [place] # (Auto) (0.1-1.2) X10*3/uL Eos # (Auto) (0.0-0.4) X10*3/uL Baso # (Auto) (0.0-0.2) X10*3/uL Abs Immat Gran (auto) (0.00-0.03) X10*3/uL Absolute Neuts (auto) (2.0-8.3) x10*3/uL Absolute Nucleated RBC (0.0-0.012) X10*3/uL Nucleated RBC % (auto) (0.0-0.2) /100WBC Smear Tech's Comments Sodium (135-145) mmol/L Potassium (3.3-5.1) mmol/L Chloride (96-108) mmol/L Carbon Dioxide (22-29) mmol/L Anion Gap (12-20) BUN (9-16) mg/dL Creatinine (0.5-1.4) mg/dL Estim Creat Clear Calc Estimated GFR Random Glucose (60-115) mg/dL Calcium (8.4-10.2) mg/dL Phosphorus (2.7-4.5) mg/dL Magnesium (1.6-2.6) mg/dL Total Bilirubin (0.0-1.0) mg/dL AST (5-31) U/L ALT (0-31) U/L Alkaline Phosphatase (39-117) U/L Total Protein (6.5-8.0) g/dL Albumin (3.5-5.0) g/dL Lipase (8-78) U/L Urine Color Urine Appearance Urine pH (5.0-9.0) Ur Specific [place] (1.005-1.025) Urine Protein (Neg-Trace) mg/dL Urine Glucose (UA) (Negative) mg/dL Urine Ketones (Negative) mg/dL Urine Blood (Negative) Urine Nitrite (Negative) Ur Leukocyte Esterase (Negative) Urine RBC (0-2) /HPF Urine WBC (0-5) /HPF Ur Squamous Epith Cells (0-2) /HPF Urine Bacteria (None Seen) Hyaline Casts (0-2) /LPF Salicylates (15-30) mg/dL Urine Opiates Screen (Not Detect) Urine Fentanyl Screen (Not Detect) Acetaminophen 49 H (<30) mcg/mL Ur Barbiturates Screen (Not Detect) Ur Phencyclidine Scrn (Not Detect) Ur Amphetamines Screen (Not Detect) U Benzodiazepines Scrn (Not Detect) Urine Cocaine Screen (Not Detect) U Marijuana (THC) Screen (Not Detect) Ethyl Alcohol mg/dL Discharge Plan Discharge Clinical Impression: Overdose on Tylenol, Suicidal ideation Patient Disposition: Home, Self-Care Instructions: Suicide Prevention (ED) Prescriptions: No Action metformin 500 mg tablet 500 mg PO BID pantoprazole 40 mg tablet,delayed release (DR/EC) 40 mg PO DAILY montelukast 10 mg tablet 10 mg PO DAILY lisinopril 5 mg tablet 5 mg PO DAILY mirtazapine 15 mg tablet 7.5 mg PO DAILY lurasidone [Latuda] 20 mg tablet 20 mg PO DAILY fluoxetine 40 mg capsule 40 mg PO BID atorvastatin 10 mg tablet 10 mg PO DAILY albuterol sulfate [Ventolin HFA] 90 mcg/actuation HFA aerosol inhaler 2 puff inhalation Q6H PRN (Reason: Shortness Of Breath Or Wheezing) trazodone 150 mg tablet 150 mg PO BEDTIME fluphenazine HCl 5 mg tablet 5 mg PO BID benztropine 1 mg tablet 1 mg PO BID hydroxyzine pamoate 50 mg capsule 100 mg PO BID naproxen 375 mg tablet 375 mg PO BID ondansetron 4 mg tablet,disintegrating 4 mg PO Q6H PRN (Reason: Nausea) prazosin 2 mg capsule 4 mg PO BEDTIME Interventions: [place]-Suicide Risk Severity Scale Last Done: 05/29/23 11:02
[2023-05-28] MEDS: Activated charcoaL 50 GM/240 ML ORAL.SUSP 100 GM PO (18:36)
--- NOTE | 2023-05-28 18:45 | PC.NURSE ---
patient came in after taking 24 500mg tylenol tablets at 519pm, poison control contacted advising to take a tylenol level at 2100 and call back with results. patient is awake, alert and oriented, pt took activated charcoal
[2023-05-28 18:55] VITALS: BP 148/89; PULSE 91; RESP 17; TEMP 37.4; O2SAT 95
[2023-05-28 19:09] LABS: Amphetamine Screen Urine Not Detected (Not Detect); Barbiturates, Urine Not Detected (Not Detect); Benzodiazepines Screen Urine Not Detected (Not Detect); Cannabinoid Screen Urine Not Detected (Not Detect); Cocaine Screen Urine Not Detected (Not Detect); Fentanyl, urine Not Detected (Not Detect); Opiate Screen Urine Not Detected (Not Detect); Phencyclidine Screen Urine Not Detected (Not Detect)
[2023-05-28 19:14] LABS: Appearance Urine Clear; Color Urine Yellow; Glucose Urine UA Negative (Negative); Leukocyte Esterase Urine Negative (Negative); Nitrite Urine Negative (Negative); Specific Gravity - Urine <= 1.005 (1.005-1.025); Urine Blood Negative (Negative); Urine Ketones Negative (Negative); Urine Protein Negative (Neg-Trace)
[2023-05-28 19:16] LABS: Basophils Percent Auto 0.5 % (0-2); Eosinophils Absolute Auto 0.3 X10*3/uL (0.0-0.4); Eosinophils Percent Auto 5.2 % (0-4); Hematocrit 32.9 % (37.0-47.0); Imm Gran Abs Auto 0.01 X10*3/uL (0.00-0.03); Imm Gran Pct Auto 0.2 % (0.0-0.4); Lymphocytes Absolute Auto 1.3 X10*3/uL (1.2-4.9); Lymphocytes Percent Auto 21.9 % (20-40); MANUAL DIFF FLAG SCAN; Mean Corpuscular HGB Conc 33.4 g/dl (31.0-35.0); Mean Corpuscular Hemoglobin 29.3 pg (27.0-33.0); Mean Corpuscular Volume 87.7 fL (80.0-98.0); Mean Platelet Volume 9.9 fL (9.4-12.3); Monocytes Absolute Auto 0.6 X10*3/uL (0.1-1.2); Monocytes Percent Auto 9.4 % (2-11); Neutrophils Absolute Auto 3.8 x10*3/uL (2.0-8.3); Neutrophils Percent Auto 62.8 % (45-73); PLT CLUMP 1; Red Blood Count 3.75 X10*6/uL (4.20-5.50); SCAN SMEAR FLAG 1
[2023-05-28 19:18] LABS: Bacteria Urine None Seen (None Seen); Hyaline Casts Urine 0-2 /LPF (0-2); RBC Urine 0-2 /HPF (0-2); Squamous Epithelial Cell Urine 0-2 /HPF (0-2); WBC Urine 0-5 /HPF (0-5)
[2023-05-28 19:22] LABS: Ethanol < 10 mg/dL
[2023-05-28 19:23] LABS: Acetaminophen LAB < 17 mcg/mL (<30); Alanine Aminotransferase 17 U/L (0-31); Albumin Level 3.9 g/dL (3.5-5.0); Alkaline Phosphatase 94 U/L (39-117); Anion Gap 13 (12-20); Aspartate Amino Transferase 22 U/L (5-31); Bilirubin Total 0.1 mg/dL (0.0-1.0); Blood Urea Nitrogen 10 mg/dL (9-16); Calcium 9.1 mg/dL (8.4-10.2); Carbon Dioxide 24 mmol/L (22-29); Chloride 107 mmol/L (96-108); Creatinine Clr Calc Pharmacy 101.2; Estimated Glomerular Filt Rate > 60; Glucose Random 115 mg/dL (60-115); Lipase 15 U/L (8-78); Magnesium 1.8 mg/dL (1.6-2.6); Phosphorus 2.9 mg/dL (2.7-4.5); Potassium 3.8 mmol/L (3.3-5.1); Salicylate < 5.0 mg/dL (15-30); Sodium 140 mmol/L (135-145)
[2023-05-28 19:31] LABS: Platelet Count 281 X10*3/uL (160-400); SLIDE REVIEW VERIFIED
[2023-05-28] MEDS: 0.9 % Sodium Chloride 1,000 ML 999 ML IV (19:37)
[2023-05-28 19:59] VITALS: BP 147/84; PULSE 82; RESP 18; TEMP 36.7; O2SAT 95
--- NOTE | 2023-05-28 21:19 | PHA.MEDREC ---
Pharmacy Consult ? Medication Reconciliation Pharmacy has completed the medication reconciliation. Patient confirmed medication. All match claim history except Latuda last filled 04/12/23, she reports still taking it. Mady Anthony, MarjD
[2023-05-28 21:55] VITALS: BP 140/89; PULSE 67; RESP 17; TEMP 36.9; O2SAT 96
[2023-05-28 22:00] VITALS: BP 143/97; PULSE 74; RESP 18; TEMP 36.7; O2SAT 98
[2023-05-28 22:10] LABS: Acetaminophen LAB 69 mcg/mL (<30)
[2023-05-28 23:50] LABS: Alanine Aminotransferase 14 U/L (0-31); Albumin Level 3.6 g/dL (3.5-5.0); Alkaline Phosphatase 85 U/L (39-117); Anion Gap 9 (12-20); Aspartate Amino Transferase 15 U/L (5-31); Bilirubin Total 0.1 mg/dL (0.0-1.0); Blood Urea Nitrogen 9 mg/dL (9-16); Calcium 8.4 mg/dL (8.4-10.2); Carbon Dioxide 26 mmol/L (22-29); Chloride 110 mmol/L (96-108); Creatinine Clr Calc Pharmacy 101.2; Estimated Glomerular Filt Rate > 60; Glucose Random 97 mg/dL (60-115); Lipase 15 U/L (8-78); Potassium 3.9 mmol/L (3.3-5.1); Sodium 141 mmol/L (135-145); Total Protein 6.1 g/dL (6.5-8.0)
--- NOTE | 2023-05-28 23:50 | PC.NURSE ---
pt transferred from Main ED, pt calm and cooperative at this time
[2023-05-28 23:55] LABS: Acetaminophen LAB 49 mcg/mL (<30)
[2023-05-29 11:17] VITALS: BP 164/79; PULSE 75; RESP 15; TEMP 36.4; O2SAT 98
--- NOTE | 2023-05-29 11:48 | PC.NURSE ---
pt axox3, vss, respirations even and unlabored, skin wpd. pt calm; cooperative this morning. pt requested food. pt requesting to go home; awaiting care team consult. pt denies si/hi/cp/cob/n/v/d. pt watching tv at this time; all needs met.
== END 2023-05-29 13:04 | disposition home or self-care (01) ==
PROVIDERS: Physician Assistant; Emergency Provider Emergency Medicine
DX: T39.1X2A Poisoning by 4-Aminophenol derivatives, intentional self-harm, initial encounter (principal); Y92.049 Unspecified place in boarding-house as the place of occurrence of the external cause; R45.851 Suicidal ideations; F32.A Depression, unspecified; F41.9 Anxiety disorder, unspecified; R44.0 Auditory hallucinations; F60.3 Borderline personality disorder; F43.12 Post-traumatic stress disorder, chronic; E11.9 Type 2 diabetes mellitus without complications; E78.5 Hyperlipidemia, unspecified; K21.9 Gastro-esophageal reflux disease without esophagitis; F17.210 Nicotine dependence, cigarettes, uncomplicated; F12.90 Cannabis use, unspecified, uncomplicated; E66.9 Obesity, unspecified; Z68.36 Body mass index [BMI] 36.0-36.9, adult; Z91.51 Personal history of suicidal behavior; Z91.52 Personal history of nonsuicidal self-harm; Z79.84 Long term (current) use of oral hypoglycemic drugs; Z79.899 Other long term (current) drug therapy
CPT/HCPCS: 36415; 80053; 80143; 80179; 80307; 81001; 83690; 83735; 84100; 85025; 93005; 96360; 96361; 99285; S9485

== ENCOUNTER 2023-06-02 12:24 | Emergency (ER) | payer MEDICARE, MEDICAID, SELFPAY ==
[2023-06-02 12:33] VITALS: BP 155/70; PULSE 114; O2SAT 96
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
[2023-06-02 12:39] VITALS: BP 137/79; PULSE 86; RESP 16; TEMP 36.2; O2SAT 98; BMI 37.8
[2023-06-02] MEDS: LORazepam 1 MG TABLET PO (12:55)
--- NOTE | 2023-06-02 21:59 | PC.NURSE ---
Called [facility] to pick her up at [phone]. left message on answering machine. marked as urgent
== END 2023-06-02 14:08 | disposition home or self-care (01) ==
PROVIDERS: Emergency Provider Emergency Medicine
DX: F41.9 Anxiety disorder, unspecified (principal); F43.12 Post-traumatic stress disorder, chronic; F31.9 Bipolar disorder, unspecified; R44.0 Auditory hallucinations; F60.3 Borderline personality disorder; E11.9 Type 2 diabetes mellitus without complications; E78.5 Hyperlipidemia, unspecified; D64.9 Anemia, unspecified; F12.90 Cannabis use, unspecified, uncomplicated; F17.210 Nicotine dependence, cigarettes, uncomplicated; E66.9 Obesity, unspecified; Z68.36 Body mass index [BMI] 36.0-36.9, adult; Z91.51 Personal history of suicidal behavior; Z91.52 Personal history of nonsuicidal self-harm; Z79.84 Long term (current) use of oral hypoglycemic drugs; Z79.899 Other long term (current) drug therapy
CPT/HCPCS: 99284

== ENCOUNTER 2023-06-02 17:39 | Emergency (ER) | payer MEDICARE, MEDICAID, SELFPAY ==
--- NOTE | ~2023-06-02 | XR_ITS ---
EXAMINATION: XR ABDOMEN KUB CLINICAL INDICATION: Constipation COMPARISON: 02/07/2022 TECHNIQUE: AP view of the abdomen. FINDINGS: Bowel gas pattern is nonobstructive. Overall mild to moderate amount of stool is present. No suspicious calcifications are seen. There is limited assessment for free air with supine positioning. No acute osseous findings are seen. XR/XR KUB IMPRESSION: Mild to moderate volume of stool.
[2023-06-02 17:56] VITALS: BP 123/98; PULSE 92; RESP 16; TEMP 36.7; O2SAT 98; BMI 37.6
--- NOTE | 2023-06-02 17:58 | ED_ITS ---
HPI - Abdominal Pain General Chief Complaint: Abdominal Pain Stated Complaint: abd pain radiating to back,dizziness Time Seen by Provider: 06/02/23 19:21 Source: patient, RN notes reviewed and old records reviewed Mode of arrival: ambulatory Limitations: no limitations History of Present Illness HPI narrative: 47-year-old female with past medical history significant for schizoaffective disorder, bipolar type, type 2 diabetes, borderline personality disorder, depression presents for evaluation of abdominal pain. Patient reports her abdominal pain started yesterday. She reports the pain is stabbing, left-sided and radiates to her back. The pain is mostly in her upper abdomen Denies any nausea vomiting diarrhea Related Data Home Medications Medication Instructions Recorded Confirmed lisinopril 5 mg tablet 5 mg PO DAILY 04/12/23 05/28/23 lurasidone 20 mg tablet (Latuda) 20 mg PO DAILY 04/12/23 05/28/23 metformin 500 mg tablet 500 mg PO BID 04/12/23 05/28/23 mirtazapine 15 mg tablet 7.5 mg PO DAILY 04/12/23 05/28/23 montelukast 10 mg tablet 10 mg PO DAILY 04/12/23 05/28/23 pantoprazole 40 mg tablet,delayed 40 mg PO DAILY 04/12/23 05/28/23 release atorvastatin 10 mg tablet 10 mg PO DAILY 04/24/23 05/28/23 fluoxetine 40 mg capsule 40 mg PO BID 04/24/23 05/28/23 albuterol sulfate 90 mcg/actuation 2 puff inhalation Q6H PRN 05/09/23 05/28/23 aerosol inhaler (Ventolin HFA) Shortness Of Breath Or Wheezing benztropine 1 mg tablet 1 mg PO BID 05/09/23 05/28/23 fluphenazine HCl 5 mg tablet 5 mg PO BID 05/09/23 05/28/23 hydroxyzine pamoate 50 mg capsule 100 mg PO BID 05/09/23 05/28/23 trazodone 150 mg tablet 150 mg PO BEDTIME 05/09/23 05/28/23 naproxen 375 mg tablet 375 mg PO BID 05/28/23 05/28/23 ondansetron 4 mg disintegrating 4 mg PO Q6H PRN Nausea 05/28/23 05/28/23 tablet prazosin 2 mg capsule 4 mg PO BEDTIME 05/28/23 05/28/23 Allergies Allergy/AdvReac Type Severity Reaction Status Date / Time azithromycin [AZITHROMYCIN] Allergy Severe Rash Verified 05/26/23 12:54 Fish Containing Products Allergy Severe Anaphylaxis Verified 05/26/23 12:54 codeine [Codeine] Allergy Intermediate Rash Verified 05/26/23 12:54 Penicillins Allergy Intermediate Rash Verified 05/26/23 12:54 prednisone [Prednisone] Allergy Intermediate Rash Verified 05/26/23 12:54 Sulfa (Sulfonamide Allergy Intermediate Rash Verified 05/26/23 12:54 Antibiotics) [Sulfa (Sulfonamides)] ziprasidone [From Geodon] Allergy Intermediate dysuria, Verified 05/26/23 12:54 rash Review of Systems Constitutional: Reports as per HPI, Denies chills, Denies fatigue, Denies fever(s) and Denies headache(s) Denies headache(s) Cardiovascular: Denies chest pain and Denies dyspnea Respiratory: Denies cough and Denies dyspnea Gastrointestinal: Reports abdominal pain, Denies constipation, Denies nausea and Denies vomiting Genitourinary: Denies dysuria Denies headache(s) and Denies focal weakness Endocrine: Denies fatigue PMFSH Past Medical History Medical History Acetaminophen overdose Acetaminophen overdose Acute anxiety Borderline personality disorder Bronchitis Chest pain COVID COVID-19 Depression Diabetes type 2, controlled Dizziness Full body hives GERD (gastroesophageal reflux disease) History of attempted suicide History of non-suicidal self-harm Hyperlipidemia Hypomagnesemia Major depression MDD (major depressive disorder), recurrent episode, severe Mood disorder Overdose PTSD (post-traumatic stress disorder) Suicide attempt Suicide attempt Suicide attempt by acetaminophen overdose UTI (urinary tract infection) Social History Social History 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 Household Members Other:: longterm Housing: Other Housing Other:: longterm Do you presently have visiting nurse or other home services: No Unable to assess alcohol history related to: Unknown Alcohol intake: never Patient Tobacco Use Status: Current everyday Tobacco user Tobacco use type: Cigarette Cigarette Packs Per Day: 1 Cigarettes Per Day: 15 Years Smoked: 22 e-Cigarette/Vaping Use: Never Used Substance Use Type: Marijuana Advance Directives: No Advance Directives Information Provided: No service: No Current occupational status: unemployed and disabled Sexual orientation: Don't Know Physical Exam ED Vital Signs: Vital Signs - 24 hr 06/02/23 17:56 Temperature 98.0 F Pulse Rate 92 Respiratory Rate 16 Blood Pressure 123/98 H Pulse Oximetry 98 Oxygen Delivery Method Room Air BMI result Body Mass Index 37.6 Const General: healthy appearing, comfortable, no acute distress, alert and awake Nutritional Appearance: well nourished Orientation/consciousness: patient oriented x3 HENMT Head: Yes normocephalic and Yes atraumatic Throat: Yes posterior oropharynx normal Eyes Eyelids: Yes eyelids normal Conjunctivae: conjunctivae normal Sclerae: sclerae normal Corneas: corneas normal Pupils: Equal, round and reactive pupils present EOM: EOMs intact bilaterally Neck Neck: Yes full ROM Resp Effort & Inspection: normal respiratory effort, able to speak in complete sentences, no audible wheezes and not labored Auscultation: clear to auscultation bilaterally Cardio Rate: regular rate Rhythm: regular rhythm GI Other: Abdomen is soft, nondistended. She has subjective tenderness to the left upper quadrant however when distracted, she does not express tenderness left upper quadrant. Regardless, there is no abdominal distention or guarding/rebound tenderness Inspection: No distended Palpation (GI): Soft to palpation, not firm, no guarding and not rigid Auscultation: normoactive bowel sounds Skin General skin exam: no rashes or lesions noted and elasticity normal Neuro General: patient oriented x3 Cranial nerves: Yes Equal, round and reactive pupils present and Yes Bilaterally intact EOM present Cognition (Neuro): normal cognition Extrem Other: Moving all extremities well without any obvious deformities Course Course Course Narrative: This is a rapid medical exam. Deferred additional HPI, ROS, PE to primary provider. 47 yo female w/ history of PTSD, depression, GERD, borderline personality disorder, and DM?here with left sided abdominal pain with radiation to the back x several hours. Will obtain labs, UA, ur preg VSS Reevaluation(s) Reevaluation #1: Patient has soft me shortly after seeing her Toradol reports that she feels better would like to be discharged. She does not want to stay for the KUB. I have a low suspicion for severe intra-abdominal pathology, very low risk for bowel perforation. The patient is currently asymptomatic, she is stable for discharge Time: 19:49 Medical Decision Making Medical Decision Making MDM Narrative: 47-year-old female who is well known to this department usually for depression, SI presents for evaluation of abdominal pain. Her labs are without significant abnormality. Her physical exam is reassuring as her abdomen is nondistended, soft and there is no guarding palpation. Will get a KUB to assess for constipation. I have a low suspicion for infectious process patient has no white count or fever. Low suspicion for perforation as patient is not peritonitic. No evidence of obstruction as the patient is still having bowel movements and is not nauseous or vomiting. Differential Diagnosis Differential Diagnoses: The differential diagnosis associated with the presentation includes Constipation Abdominal pain UTI Obstructive uropathy Gastritis GERD Abdominal wall strain Lab Data 06/02/23 18:22 06/02/23 18:21 Labs: Lab Results 06/02/23 06/02/23 06/02/23 Range/Units 18:21 18:22 18:28 WBC 7.3 (4.8-10.8) X10*3/uL RBC 3.76 L (4.20-5.50) X10*6/uL Hgb 10.6 L (12.0-16.0) g/dl Hct 33.1 L (37.0-47.0) % MCV 88.0 (80.0-98.0) fL MCH 28.2 (27.0-33.0) pg MCHC 32.0 (31.0-35.0) g/dl RDW 13.4 (11.0-16.0) % Plt Count 292 (160-400) X10*3/uL MPV 9.6 (9.4-12.3) fL Immature Gran % (Auto) 0.3 (0.0-0.4) % Neut % (Auto) 61.6 (45-73) % Lymph % (Auto) 23.5 (20-40) % [place] % (Auto) 9.2 (2-11) % Eos % (Auto) 5.0 H (0-4) % Baso % (Auto) 0.4 (0-2) % Lymph # (Auto) 1.7 (1.2-4.9) X10*3/uL [place] # (Auto) 0.7 (0.1-1.2) X10*3/uL Eos # (Auto) 0.4 (0.0-0.4) X10*3/uL Baso # (Auto) 0.0 (0.0-0.2) X10*3/uL Abs Immat Gran (auto) 0.02 (0.00-0.03) X10*3/uL Absolute Neuts (auto) 4.5 (2.0-8.3) x10*3/uL Absolute Nucleated RBC 0.000 (0.0-0.012) X10*3/uL Nucleated RBC % (auto) 0.0 (0.0-0.2) /100WBC Sodium 137 (135-145) mmol/L Potassium 3.9 (3.3-5.1) mmol/L Chloride 105 (96-108) mmol/L Carbon Dioxide 25 (22-29) mmol/L Anion Gap 11 L (12-20) BUN 7 L (9-16) mg/dL Creatinine 0.79 (0.5-1.4) mg/dL Estim Creat Clear Calc 106.8 Estimated GFR > 60 Random Glucose 97 (60-115) mg/dL Calcium 8.7 (8.4-10.2) mg/dL Total Bilirubin 0.2 (0.0-1.0) mg/dL Direct Bilirubin < 0.2 (0.0-0.5) mg/dL AST 15 (5-31) U/L ALT 14 (0-31) U/L Alkaline Phosphatase 86 (39-117) U/L Total Protein 6.7 (6.5-8.0) g/dL Albumin 4.0 (3.5-5.0) g/dL Lipase 10 (8-78) U/L Urine Color Yellow Urine Appearance Clear Urine pH 5.5 (5.0-9.0) Ur Specific [place] <= 1.005 (1.005-1.025) Urine Protein Negative (Neg-Trace) mg/dL Urine Glucose (UA) Negative (Negative) mg/dL Urine Ketones Negative (Negative) mg/dL Urine Blood Negative (Negative) Urine Nitrite Negative (Negative) Ur Leukocyte Esterase Negative (Negative) Urine Test (NEGATIVE) 06/02/23 Range/Units 18:28 WBC (4.8-10.8) X10*3/uL RBC (4.20-5.50) X10*6/uL Hgb (12.0-16.0) g/dl Hct (37.0-47.0) % MCV (80.0-98.0) fL MCH (27.0-33.0) pg MCHC (31.0-35.0) g/dl RDW (11.0-16.0) % Plt Count (160-400) X10*3/uL MPV (9.4-12.3) fL Immature Gran % (Auto) (0.0-0.4) % Neut % (Auto) (45-73) % Lymph % (Auto) (20-40) % [place] % (Auto) (2-11) % Eos % (Auto) (0-4) % Baso % (Auto) (0-2) % Lymph # (Auto) (1.2-4.9) X10*3/uL [place] # (Auto) (0.1-1.2) X10*3/uL Eos # (Auto) (0.0-0.4) X10*3/uL Baso # (Auto) (0.0-0.2) X10*3/uL Abs Immat Gran (auto) (0.00-0.03) X10*3/uL Absolute Neuts (auto) (2.0-8.3) x10*3/uL Absolute Nucleated RBC (0.0-0.012) X10*3/uL Nucleated RBC % (auto) (0.0-0.2) /100WBC Sodium (135-145) mmol/L Potassium (3.3-5.1) mmol/L Chloride (96-108) mmol/L Carbon Dioxide (22-29) mmol/L Anion Gap (12-20) BUN (9-16) mg/dL Creatinine (0.5-1.4) mg/dL Estim Creat Clear Calc Estimated GFR Random Glucose (60-115) mg/dL Calcium (8.4-10.2) mg/dL Total Bilirubin (0.0-1.0) mg/dL Direct Bilirubin (0.0-0.5) mg/dL AST (5-31) U/L ALT (0-31) U/L Alkaline Phosphatase (39-117) U/L Total Protein (6.5-8.0) g/dL Albumin (3.5-5.0) g/dL Lipase (8-78) U/L Urine Color Urine Appearance Urine pH (5.0-9.0) Ur Specific [place] (1.005-1.025) Urine Protein (Neg-Trace) mg/dL Urine Glucose (UA) (Negative) mg/dL Urine Ketones (Negative) mg/dL Urine Blood (Negative) Urine Nitrite (Negative) Ur Leukocyte Esterase (Negative) Urine Test NEGATIVE (NEGATIVE) Medications Administered Discontinued Medications Generic Name Dose Route Start Last Admin Trade Name Freq PRN Reason Stop Dose Admin Ketorolac Tromethamine 30 mg 06/02/23 19:29 06/02/23 19:36 Ketorolac Tromethamine 30 Mg/Ml Vial IM 06/02/23 19:30 30 mg ONCE ONE Administration Discharge Plan Discharge Clinical Impression: Abdominal pain Patient Disposition: Home, Self-Care Instructions: Abdominal Pain (ED) Additional Instructions: Use ibuprofen for any further abdominal pain. Follow-up with your primary doctor Prescriptions: No Action metformin 500 mg tablet 500 mg PO BID pantoprazole 40 mg tablet,delayed release (DR/EC) 40 mg PO DAILY montelukast 10 mg tablet 10 mg PO DAILY lisinopril 5 mg tablet 5 mg PO DAILY mirtazapine 15 mg tablet 7.5 mg PO DAILY lurasidone [Latuda] 20 mg tablet 20 mg PO DAILY fluoxetine 40 mg capsule 40 mg PO BID atorvastatin 10 mg tablet 10 mg PO DAILY albuterol sulfate [Ventolin HFA] 90 mcg/actuation HFA aerosol inhaler 2 puff inhalation Q6H PRN (Reason: Shortness Of Breath Or Wheezing) trazodone 150 mg tablet 150 mg PO BEDTIME fluphenazine HCl 5 mg tablet 5 mg PO BID benztropine 1 mg tablet 1 mg PO BID hydroxyzine pamoate 50 mg capsule 100 mg PO BID naproxen 375 mg tablet 375 mg PO BID ondansetron 4 mg tablet,disintegrating 4 mg PO Q6H PRN (Reason: Nausea) prazosin 2 mg capsule 4 mg PO BEDTIME
[2023-06-02 18:26] LABS: MANUAL DIFF FLAG NO
[2023-06-02 18:36] LABS: UPreg QC Valid YES; Urine Pregnancy NEGATIVE (NEGATIVE)
[2023-06-02 18:39] LABS: Appearance Urine Clear; Color Urine Yellow; Glucose Urine UA Negative (Negative); Leukocyte Esterase Urine Negative (Negative); Nitrite Urine Negative (Negative); PH 5.5 (5.0-9.0); Specific Gravity - Urine <= 1.005 (1.005-1.025); Urine Blood Negative (Negative); Urine Ketones Negative (Negative); Urine Protein Negative (Neg-Trace)
[2023-06-02 18:40] LABS: Alanine Aminotransferase 14 U/L (0-31); Alkaline Phosphatase 86 U/L (39-117); Anion Gap 11 (12-20); Aspartate Amino Transferase 15 U/L (5-31); Bilirubin Direct < 0.2 mg/dL (0.0-0.5); Bilirubin Total 0.2 mg/dL (0.0-1.0); Blood Urea Nitrogen 7 mg/dL (9-16); Calcium 8.7 mg/dL (8.4-10.2); Carbon Dioxide 25 mmol/L (22-29); Chloride 105 mmol/L (96-108); Creatinine Clr Calc Pharmacy 106.8; Estimated Glomerular Filt Rate > 60; Glucose Random 97 mg/dL (60-115); Lipase 10 U/L (8-78); Potassium 3.9 mmol/L (3.3-5.1); Sodium 137 mmol/L (135-145); Total Protein 6.7 g/dL (6.5-8.0)
[2023-06-02 18:41] LABS: Basophils Percent Auto 0.4 % (0-2); Eosinophils Absolute Auto 0.4 X10*3/uL (0.0-0.4); Hematocrit 33.1 % (37.0-47.0); Hemoglobin 10.6 g/dl (12.0-16.0); Imm Gran Abs Auto 0.02 X10*3/uL (0.00-0.03); Imm Gran Pct Auto 0.3 % (0.0-0.4); Lymphocytes Absolute Auto 1.7 X10*3/uL (1.2-4.9); Lymphocytes Percent Auto 23.5 % (20-40); Mean Corpuscular Hemoglobin 28.2 pg (27.0-33.0); Mean Platelet Volume 9.6 fL (9.4-12.3); Monocytes Absolute Auto 0.7 X10*3/uL (0.1-1.2); Monocytes Percent Auto 9.2 % (2-11); Neutrophils Absolute Auto 4.5 x10*3/uL (2.0-8.3); Neutrophils Percent Auto 61.6 % (45-73); Platelet Count 292 X10*3/uL (160-400); Red Blood Count 3.76 X10*6/uL (4.20-5.50); Red Cell Distribution Width 13.4 % (11.0-16.0); White Blood Count 7.3 X10*3/uL (4.8-10.8)
[2023-06-02] MEDS: Ketorolac Tromethamine 30 MG/ML VIAL IM (19:36)
== END 2023-06-02 20:03 | disposition home or self-care (01) ==
PROVIDERS: Nurse Practitioner Family; Emergency Provider Emergency Medicine; PCP Nurse Practitioner Family
DX: R10.12 Left upper quadrant pain (principal); F25.0 Schizoaffective disorder, bipolar type; F60.3 Borderline personality disorder; F43.12 Post-traumatic stress disorder, chronic; F41.9 Anxiety disorder, unspecified; E11.9 Type 2 diabetes mellitus without complications; E78.5 Hyperlipidemia, unspecified; D64.9 Anemia, unspecified; F17.210 Nicotine dependence, cigarettes, uncomplicated; F12.90 Cannabis use, unspecified, uncomplicated; E66.9 Obesity, unspecified; Z68.37 Body mass index [BMI] 37.0-37.9, adult; Z79.84 Long term (current) use of oral hypoglycemic drugs; Z79.899 Other long term (current) drug therapy; Z91.51 Personal history of suicidal behavior; Z91.52 Personal history of nonsuicidal self-harm
CPT/HCPCS: 36415; 74018; 80048; 80076; 81003; 81025; 83690; 85025; 96372; 99283; 99284; J1885

== ENCOUNTER 2023-06-13 16:38 | Emergency (ER) | payer MEDICARE, MEDICAID, SELFPAY ==
--- NOTE | 2023-06-13 | ECG_ITS ---
Test Reason : CHEST PAIN Blood Pressure : / mmHG Vent. Rate : 080 BPM Atrial Rate : 080 BPM P-R Int : 162 ms QRS Dur : 082 ms QT Int : 390 ms P-R-T Axes : 022 022 031 degrees QTc Int : 449 ms Normal sinus rhythm Normal ECG When compared with ECG of 28-MAY-2023 18:30, No significant change was found Referred By: Sona Eagle Electronically Signed By:JESU EASTMAN
[2023-06-13 16:46] VITALS: BP 142/68; PULSE 98; O2SAT 96
[2023-06-13 16:49] VITALS: BP 127/70; PULSE 80; RESP 18; TEMP 36.8; O2SAT 98; BMI 40.2
[2023-06-13 18:09] LABS: MANUAL DIFF FLAG NO
[2023-06-13 18:24] VITALS: BP 128/79; PULSE 69; RESP 17; O2SAT 98
[2023-06-13 18:26] LABS: Appearance Urine Clear; Color Urine Yellow; Glucose Urine UA Negative (Negative); Leukocyte Esterase Urine Trace (Negative); Nitrite Urine Negative (Negative); PH 5.5 (5.0-9.0); UMIC TRIGGER UACC YES; Urine Blood Negative (Negative); Urine Ketones Negative (Negative); Urine Protein Negative (Neg-Trace)
[2023-06-13 18:28] LABS: Bacteria Urine Trace (None Seen); Hyaline Casts Urine 0-2 /LPF (0-2); RBC Urine 0-2 /HPF (0-2); WBC Urine 0-5 /HPF (0-5)
[2023-06-13 18:31] LABS: Basophils Percent Auto 0.6 % (0-2); Eosinophils Absolute Auto 0.4 X10*3/uL (0.0-0.4); Eosinophils Percent Auto 5.4 % (0-4); Hematocrit 32.9 % (37.0-47.0); Imm Gran Abs Auto 0.02 X10*3/uL (0.00-0.03); Imm Gran Pct Auto 0.3 % (0.0-0.4); Lymphocytes Absolute Auto 1.6 X10*3/uL (1.2-4.9); Lymphocytes Percent Auto 24.6 % (20-40); Mean Corpuscular HGB Conc 33.4 g/dl (31.0-35.0); Mean Corpuscular Hemoglobin 29.1 pg (27.0-33.0); Mean Platelet Volume 10.1 fL (9.4-12.3); Monocytes Absolute Auto 0.5 X10*3/uL (0.1-1.2); Monocytes Percent Auto 7.4 % (2-11); Neutrophils Absolute Auto 4.1 x10*3/uL (2.0-8.3); Neutrophils Percent Auto 61.7 % (45-73); Platelet Count 264 X10*3/uL (160-400); Red Blood Count 3.78 X10*6/uL (4.20-5.50); Red Cell Distribution Width 13.2 % (11.0-16.0); White Blood Count 6.6 X10*3/uL (4.8-10.8)
[2023-06-13 18:34] LABS: Alanine Aminotransferase 10 U/L (0-31); Albumin Level 3.9 g/dL (3.5-5.0); Alkaline Phosphatase 98 U/L (39-117); Anion Gap 13 (12-20); Aspartate Amino Transferase 13 U/L (5-31); Bilirubin Direct < 0.2 mg/dL (0.0-0.5); Bilirubin Total 0.1 mg/dL (0.0-1.0); Blood Urea Nitrogen 13 mg/dL (9-16); Calcium 8.4 mg/dL (8.4-10.2); Carbon Dioxide 26 mmol/L (22-29); Chloride 106 mmol/L (96-108); Creatinine Clr Calc Pharmacy 112.6; Estimated Glomerular Filt Rate > 60; Glucose Random 102 mg/dL (60-115); Lipase 17 U/L (8-78); Potassium 3.8 mmol/L (3.3-5.1); Sodium 141 mmol/L (135-145); Total Protein 6.5 g/dL (6.5-8.0)
[2023-06-13 19:18] VITALS: BP 126/77; PULSE 69; RESP 18; TEMP 36.8; O2SAT 99
--- NOTE | 2023-06-13 19:19 | MHC.EDTECH ---
This tech assumed care of patient at 1900, vitals and rounds completed and patient is resting comfortably and call thomas within reach.
--- NOTE | 2023-06-13 19:52 | ED_ITS ---
HPI - Abdominal Pain General Chief Complaint: Abdominal Pain Stated Complaint: abd pain, chest pain, from [facility] home Time Seen by Provider: 06/13/23 16:45 History of Present Illness HPI narrative: Patient is a 47-year-old female with a long history of PTSD, diabetes, borderline personality, suicidal ideations presents today with having abdominal pain mainly over the right side of her abdomen. There is no fever no chills. His last chest pain or shortness breath no diaphoresis. Patient is from home. No cough no congestion. The pain is episodic comes and goes but specific triggers. No pain on urination. No change in bowel movement. Never had similar pain in the past. Patient Related Data Home Medications Medication Instructions Recorded Confirmed lisinopril 5 mg tablet 5 mg PO DAILY 04/12/23 05/28/23 lurasidone 20 mg tablet (Latuda) 20 mg PO DAILY 04/12/23 05/28/23 metformin 500 mg tablet 500 mg PO BID 04/12/23 05/28/23 mirtazapine 15 mg tablet 7.5 mg PO DAILY 04/12/23 05/28/23 montelukast 10 mg tablet 10 mg PO DAILY 04/12/23 05/28/23 pantoprazole 40 mg tablet,delayed 40 mg PO DAILY 04/12/23 05/28/23 release atorvastatin 10 mg tablet 10 mg PO DAILY 04/24/23 05/28/23 fluoxetine 40 mg capsule 40 mg PO BID 04/24/23 05/28/23 albuterol sulfate 90 mcg/actuation 2 puff inhalation Q6H PRN 05/09/23 05/28/23 aerosol inhaler (Ventolin HFA) Shortness Of Breath Or Wheezing benztropine 1 mg tablet 1 mg PO BID 05/09/23 05/28/23 fluphenazine HCl 5 mg tablet 5 mg PO BID 05/09/23 05/28/23 hydroxyzine pamoate 50 mg capsule 100 mg PO BID 05/09/23 05/28/23 trazodone 150 mg tablet 150 mg PO BEDTIME 05/09/23 05/28/23 naproxen 375 mg tablet 375 mg PO BID 05/28/23 05/28/23 ondansetron 4 mg disintegrating 4 mg PO Q6H PRN Nausea 05/28/23 05/28/23 tablet prazosin 2 mg capsule 4 mg PO BEDTIME 05/28/23 05/28/23 Allergies Allergy/AdvReac Type Severity Reaction Status Date / Time azithromycin [AZITHROMYCIN] Allergy Severe Rash Verified 05/26/23 12:54 Fish Containing Products Allergy Severe Anaphylaxis Verified 05/26/23 12:54 codeine [Codeine] Allergy Intermediate Rash Verified 05/26/23 12:54 Penicillins Allergy Intermediate Rash Verified 05/26/23 12:54 prednisone [Prednisone] Allergy Intermediate Rash Verified 05/26/23 12:54 Sulfa (Sulfonamide Allergy Intermediate Rash Verified 05/26/23 12:54 Antibiotics) [Sulfa (Sulfonamides)] ziprasidone [From Geodon] Allergy Intermediate dysuria, Verified 05/26/23 12:54 rash Review of Systems Review of Systems Positive right-sided abdominal pain. No nausea no vomiting Yes all other systems are reviewed and are negative PMFSH Past Medical History Attestation statement: The following information was validated with the patient. Medical History Acetaminophen overdose Acetaminophen overdose Acute anxiety Borderline personality disorder Bronchitis Chest pain COVID COVID-19 Depression Diabetes type 2, controlled Dizziness Full body hives GERD (gastroesophageal reflux disease) History of attempted suicide History of non-suicidal self-harm Hyperlipidemia Hypomagnesemia Major depression MDD (major depressive disorder), recurrent episode, severe Mood disorder Overdose PTSD (post-traumatic stress disorder) Suicide attempt Suicide attempt Suicide attempt by acetaminophen overdose UTI (urinary tract infection) Social History Social History 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 Household Members Other:: usp Housing: Other Housing Other:: usp Do you presently have visiting nurse or other home services: No Unable to assess alcohol history related to: Unknown Alcohol intake: never Patient Tobacco Use Status: Current everyday Tobacco user Tobacco use type: Cigarette Cigarette Packs Per Day: 1 Cigarettes Per Day: 15 Years Smoked: 22 Smoked in Last 30 Days: Yes e-Cigarette/Vaping Use: Never Used Use of substances other than those prescribed or required for medical reasons: No Substance Use Type: Marijuana Advance Directives: No Advance Directives Information Provided: No service: No Current occupational status: unemployed and disabled Sexual orientation: Don't Know Physical Exam ED Vital Signs: Vital Signs - 24 hr 06/13/23 16:49 06/13/23 18:24 06/13/23 19:18 Temperature 98.3 F 98.2 F Pulse Rate 80 69 69 Respiratory Rate 18 17 18 Blood Pressure 127/70 128/79 126/77 Pulse Oximetry 98 98 99 Oxygen Delivery Method Room Air Room Air Room Air BMI result Body Mass Index 40.2 Appearance: Alert. Oriented X3. No acute distress. Eyes: Pupils equal, round and reactive to light. ENT: Pharynx normal. Neck: Normal inspection. Neck supple. No lymph nodes noted. No crepitus CVS: Normal heart rate and rhythm. Pulses normal. Normal S1 and S2 Respiratory: No respiratory distress. Breath sounds normal. No Wheezing. No rales Abdomen: Soft and nontender. No rigidity. No distention. good BS x4 Skin: Skin warm and dry. Normal skin color. Normal skin turgor. Extremities: No lower extremity edema. Neurovascular intact to all extremities. No Lacerations. No Rash Neuro: Oriented X 3. No motor deficit. No sensory deficit. Moving all extermities. No slurred speech Medical Decision Making Medical Decision Making MDM Narrative: Positive abdominal pain nonspecific on the right side now has spontaneously resolved. No pain on urination. Long history of psychiatric illness. Repeat abdominal exam was soft nontender. Patient's white count is normal. Hemoglobin is 11 which is baseline. Patient's LFTs are normal. Lipase is normal. No evidence for biliary illness. Urine showed no signs of infection. test was negative no related issues. Patient wants to go home. Will discharge patient home. Differential Diagnosis Differential Diagnoses: The differential diagnosis associated with the presentation includes Gastritis, obstruction, abscess, perforation, appendicitis, kidney stone Lab Data [facility] Lab Attestation statement: I reviewed the patient's lab results. 06/13/23 18:04 06/13/23 18:04 Labs: Lab Results 06/13/23 06/13/23 06/13/23 Range/Units 18:04 18:04 18:12 WBC 6.6 (4.8-10.8) X10*3/uL RBC 3.78 L (4.20-5.50) X10*6/uL Hgb 11.0 L (12.0-16.0) g/dl Hct 32.9 L (37.0-47.0) % MCV 87.0 (80.0-98.0) fL MCH 29.1 (27.0-33.0) pg MCHC 33.4 (31.0-35.0) g/dl RDW 13.2 (11.0-16.0) % Plt Count 264 (160-400) X10*3/uL MPV 10.1 (9.4-12.3) fL Immature Gran % (Auto) 0.3 (0.0-0.4) % Neut % (Auto) 61.7 (45-73) % Lymph % (Auto) 24.6 (20-40) % [place] % (Auto) 7.4 (2-11) % Eos % (Auto) 5.4 H (0-4) % Baso % (Auto) 0.6 (0-2) % Lymph # (Auto) 1.6 (1.2-4.9) X10*3/uL [place] # (Auto) 0.5 (0.1-1.2) X10*3/uL Eos # (Auto) 0.4 (0.0-0.4) X10*3/uL Baso # (Auto) 0.0 (0.0-0.2) X10*3/uL Abs Immat Gran (auto) 0.02 (0.00-0.03) X10*3/uL Absolute Neuts (auto) 4.1 (2.0-8.3) x10*3/uL Absolute Nucleated RBC 0.000 (0.0-0.012) X10*3/uL Nucleated RBC % (auto) 0.0 (0.0-0.2) /100WBC Sodium 141 (135-145) mmol/L Potassium 3.8 (3.3-5.1) mmol/L Chloride 106 (96-108) mmol/L Carbon Dioxide 26 (22-29) mmol/L Anion Gap 13 (12-20) BUN 13 (9-16) mg/dL Creatinine 0.75 (0.5-1.4) mg/dL Estim Creat Clear Calc 112.6 Estimated GFR > 60 Random Glucose 102 (60-115) mg/dL Calcium 8.4 (8.4-10.2) mg/dL Total Bilirubin 0.1 (0.0-1.0) mg/dL Direct Bilirubin < 0.2 (0.0-0.5) mg/dL AST 13 (5-31) U/L ALT 10 (0-31) U/L Alkaline Phosphatase 98 (39-117) U/L Total Protein 6.5 (6.5-8.0) g/dL Albumin 3.9 (3.5-5.0) g/dL Lipase 17 (8-78) U/L Urine Color Yellow Urine Appearance Clear Urine pH 5.5 (5.0-9.0) Ur Specific [place] 1.010 (1.005-1.025) Urine Protein Negative (Neg-Trace) mg/dL Urine Glucose (UA) Negative (Negative) mg/dL Urine Ketones Negative (Negative) mg/dL Urine Blood Negative (Negative) Urine Nitrite Negative (Negative) Ur Leukocyte Esterase Trace H (Negative) Urine RBC 0-2 (0-2) /HPF Urine WBC 0-5 (0-5) /HPF Ur Squamous Epith Cells 3-5 (0-2) /HPF Urine Bacteria Trace (None Seen) Hyaline Casts 0-2 (0-2) /LPF Urine Test (NEGATIVE) 06/13/23 Range/Units 18:12 WBC (4.8-10.8) X10*3/uL RBC (4.20-5.50) X10*6/uL Hgb (12.0-16.0) g/dl Hct (37.0-47.0) % MCV (80.0-98.0) fL MCH (27.0-33.0) pg MCHC (31.0-35.0) g/dl RDW (11.0-16.0) % Plt Count (160-400) X10*3/uL MPV (9.4-12.3) fL Immature Gran % (Auto) (0.0-0.4) % Neut % (Auto) (45-73) % Lymph % (Auto) (20-40) % [place] % (Auto) (2-11) % Eos % (Auto) (0-4) % Baso % (Auto) (0-2) % Lymph # (Auto) (1.2-4.9) X10*3/uL [place] # (Auto) (0.1-1.2) X10*3/uL Eos # (Auto) (0.0-0.4) X10*3/uL Baso # (Auto) (0.0-0.2) X10*3/uL Abs Immat Gran (auto) (0.00-0.03) X10*3/uL Absolute Neuts (auto) (2.0-8.3) x10*3/uL Absolute Nucleated RBC (0.0-0.012) X10*3/uL Nucleated RBC % (auto) (0.0-0.2) /100WBC Sodium (135-145) mmol/L Potassium (3.3-5.1) mmol/L Chloride (96-108) mmol/L Carbon Dioxide (22-29) mmol/L Anion Gap (12-20) BUN (9-16) mg/dL Creatinine (0.5-1.4) mg/dL Estim Creat Clear Calc Estimated GFR Random Glucose (60-115) mg/dL Calcium (8.4-10.2) mg/dL Total Bilirubin (0.0-1.0) mg/dL Direct Bilirubin (0.0-0.5) mg/dL AST (5-31) U/L ALT (0-31) U/L Alkaline Phosphatase (39-117) U/L Total Protein (6.5-8.0) g/dL Albumin (3.5-5.0) g/dL Lipase (8-78) U/L Urine Color Urine Appearance Urine pH (5.0-9.0) Ur Specific [place] (1.005-1.025) Urine Protein (Neg-Trace) mg/dL Urine Glucose (UA) (Negative) mg/dL Urine Ketones (Negative) mg/dL Urine Blood (Negative) Urine Nitrite (Negative) Ur Leukocyte Esterase (Negative) Urine RBC (0-2) /HPF Urine WBC (0-5) /HPF Ur Squamous Epith Cells (0-2) /HPF Urine Bacteria (None Seen) Hyaline Casts (0-2) /LPF Urine Test NEGATIVE (NEGATIVE) Independent Interpretation I performed an independent interpretation of an: EKG Interpretation: My interpretation of patient's EKG showed a sinus rhythm heart rate is 80 NM QRS QT see within normal limits there is no acute ST segment elevation. External Record Review External record reviewed: Inpatient record In-patient psychiatric records reviewed Chronic Conditions PTSD Discharge Plan Discharge Clinical Impression: Abdominal pain Patient Disposition: Home, Self-Care Instructions: Abdominal Pain (ED) Prescriptions: No Action metformin 500 mg tablet 500 mg PO BID pantoprazole 40 mg tablet,delayed release (DR/EC) 40 mg PO DAILY montelukast 10 mg tablet 10 mg PO DAILY lisinopril 5 mg tablet 5 mg PO DAILY mirtazapine 15 mg tablet 7.5 mg PO DAILY lurasidone [Latuda] 20 mg tablet 20 mg PO DAILY fluoxetine 40 mg capsule 40 mg PO BID atorvastatin 10 mg tablet 10 mg PO DAILY albuterol sulfate [Ventolin HFA] 90 mcg/actuation HFA aerosol inhaler 2 puff inhalation Q6H PRN (Reason: Shortness Of Breath Or Wheezing) trazodone 150 mg tablet 150 mg PO BEDTIME fluphenazine HCl 5 mg tablet 5 mg PO BID benztropine 1 mg tablet 1 mg PO BID hydroxyzine pamoate 50 mg capsule 100 mg PO BID naproxen 375 mg tablet 375 mg PO BID ondansetron 4 mg tablet,disintegrating 4 mg PO Q6H PRN (Reason: Nausea) prazosin 2 mg capsule 4 mg PO BEDTIME Referrals: Maribel aMrquez NP [Primary Care Provider] -
[2023-06-13 20:22] LABS: UPreg QC Valid YES; Urine Pregnancy NEGATIVE (NEGATIVE)
[2023-06-13 21:33] VITALS: BP 131/93; PULSE 80; RESP 16; O2SAT 96
== END 2023-06-13 21:37 | disposition home or self-care (01) ==
PROVIDERS: Emergency Provider Emergency Medicine Emergency Medical Services; PCP Nurse Practitioner Family
DX: R10.9 Unspecified abdominal pain (principal); E11.9 Type 2 diabetes mellitus without complications; E78.5 Hyperlipidemia, unspecified; F17.210 Nicotine dependence, cigarettes, uncomplicated; F12.90 Cannabis use, unspecified, uncomplicated; E66.9 Obesity, unspecified; Z68.41 Body mass index [BMI] 40.0-44.9, adult; Z79.84 Long term (current) use of oral hypoglycemic drugs; Z79.899 Other long term (current) drug therapy
CPT/HCPCS: 36415; 80048; 80076; 81001; 81025; 83690; 85025; 93005; 99283; 99284

== ENCOUNTER 2023-06-15 20:08 | Emergency (ER) | payer MEDICARE, MEDICAID, SELFPAY ==
[2023-06-15 20:15] VITALS: BP 143/80; PULSE 87; RESP 16; TEMP 36.2; O2SAT 96; BMI 37.6
--- NOTE | 2023-06-15 20:47 | ED_ITS ---
HPI - General Adult General Chief complaint: Psychiatric Symptoms Stated complaint: SI WITH PLAN Time Seen by Provider: 06/15/23 20:40 Source: patient, RN notes reviewed and old records reviewed Mode of arrival: EMS Limitations: no limitations History of Present Illness HPI narrative: 47-year-old female with a past medical history significant for PTSD, borderline personality disorder, diabetes, GERD presents for evaluation of suicidal ideation Patient is very well known to this emergency department for frequent ER visits She reports that she has had increasing suicidal thoughts since earlier today She states that 2 days from today is ?the anniversary of my cousin committing suicide in front of me. ? Patient reports that she is getting flashbacks and she is also hearing voices telling her to harm herself Patient has a plan to overdose on Tylenol which she has done in the past Related Data Home Medications Medication Instructions Recorded Confirmed lisinopril 5 mg tablet 5 mg PO DAILY 04/12/23 06/15/23 metformin 500 mg tablet 500 mg PO BID 04/12/23 06/15/23 mirtazapine 15 mg tablet 7.5 mg PO DAILY 04/12/23 06/15/23 montelukast 10 mg tablet 10 mg PO DAILY 04/12/23 06/15/23 pantoprazole 40 mg tablet,delayed 40 mg PO DAILY 04/12/23 06/15/23 release fluphenazine HCl 5 mg tablet 5 mg PO BID 05/09/23 06/15/23 prazosin 2 mg capsule 4 mg PO BEDTIME 05/28/23 06/15/23 albuterol sulfate 90 mcg/actuation 2 puff inhalation QID PRN 06/15/23 06/15/23 aerosol inhaler (Ventolin HFA) Shortness Of Breath Or Wheezing atorvastatin 10 mg tablet 10 mg PO DAILY 06/15/23 06/15/23 benztropine 1 mg tablet 1 mg PO BID 06/15/23 06/15/23 fluoxetine 40 mg capsule 80 mg PO QAM 06/15/23 06/15/23 hydroxyzine pamoate 50 mg capsule 100 mg PO BID 06/15/23 06/15/23 ondansetron 4 mg disintegrating 4 mg PO DAILY PRN Nausea And 06/15/23 06/15/23 tablet Vomiting trazodone 150 mg tablet 150 mg PO BEDTIME 09/01/23 09/01/23 Allergies Allergy/AdvReac Type Severity Reaction Status Date / Time azithromycin [AZITHROMYCIN] Allergy Severe Rash Verified 05/26/23 12:54 Fish Containing Products Allergy Severe Anaphylaxis Verified 05/26/23 12:54 codeine [Codeine] Allergy Intermediate Rash Verified 05/26/23 12:54 Penicillins Allergy Intermediate Rash Verified 05/26/23 12:54 prednisone [Prednisone] Allergy Intermediate Rash Verified 05/26/23 12:54 Sulfa (Sulfonamide Allergy Intermediate Rash Verified 05/26/23 12:54 Antibiotics) [Sulfa (Sulfonamides)] ziprasidone [From Geodon] Allergy Intermediate dysuria, Verified 05/26/23 12:54 rash Review of Systems 2 Constitutional: Constitutional: Denies chills and Denies fever(s) Cardiovascular: Cardiovascular: Denies chest pain and Denies dyspnea Respiratory: Respiratory: Denies cough and Denies dyspnea Gastrointestinal: Gastrointestinal: Denies abdominal pain, Denies nausea and Denies vomiting Musculoskeletal: Musculoskeletal: Denies back pain Integumentary/Breasts: Skin/Breast: Denies rash Psychiatric: Psychiatric: Reports depression, Reports auditory hallucinations, Reports panic attacks, Reports paranoia and Reports suicidal ideation [facility] Past Medical History Medical History Acetaminophen overdose Acetaminophen overdose Acute anxiety Borderline personality disorder Bronchitis Chest pain COVID COVID-19 Depression Diabetes type 2, controlled Dizziness Full body hives GERD (gastroesophageal reflux disease) History of attempted suicide History of non-suicidal self-harm Hyperlipidemia Hypomagnesemia Major depression MDD (major depressive disorder), recurrent episode, severe Mood disorder Overdose PTSD (post-traumatic stress disorder) Suicide attempt Suicide attempt Suicide attempt by acetaminophen overdose UTI (urinary tract infection) Social History Social History 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 Household Members Other:: long-term Housing: Other Housing Other:: long-term Do you presently have visiting nurse or other home services: No Unable to assess alcohol history related to: Unknown Alcohol intake: never Patient Tobacco Use Status: Current everyday Tobacco user Tobacco use type: Cigarette Cigarette Packs Per Day: 1 Cigarettes Per Day: 15 Years Smoked: 22 e-Cigarette/Vaping Use: Never Used Substance Use Type: Marijuana Advance Directives: No Advance Directives Information Provided: No service: No Current occupational status: unemployed and disabled Sexual orientation: Don't Know Physical Exam ED Vital Signs: Vital Signs - 24 hr 06/15/23 20:15 Temperature 97.2 F Pulse Rate 87 Respiratory Rate 16 Blood Pressure 143/80 H Pulse Oximetry 96 Oxygen Delivery Method Room Air BMI result Body Mass Index 37.6 Const General: healthy appearing, comfortable, no acute distress, alert and awake Nutritional Appearance: well nourished Orientation/consciousness: patient oriented x3 HENMT Head: Yes normocephalic and Yes atraumatic Eyes Eyelids: Yes eyelids normal Conjunctivae: conjunctivae normal Sclerae: sclerae normal Corneas: corneas normal Pupils: Equal, round and reactive pupils present EOM: EOMs intact bilaterally Neck Neck: Yes full ROM Resp Effort & Inspection: normal respiratory effort, able to speak in complete sentences and not labored Skin General skin exam: no rashes or lesions noted and elasticity normal Neuro General: patient oriented x3 Cranial nerves: Yes Equal, round and reactive pupils present and Yes Bilaterally intact EOM present Cognition (Neuro): normal cognition Extrem Other: Moving all extremities well without any obvious deformities Course Reevaluation(s) Reevaluation #1: Patient reports that she feels better, is no longer suicidal and is requesting discharge. She has not yet been evaluated by the care team. Unfortunately we do not have a way to get the patient discharged safely back to her long-term, so she will likely have to stay until the morning Time: 01:48 Medications Administered Discontinued Medications Generic Name Dose Route Start Last Admin Trade Name Freq PRN Reason Stop Dose Admin Lorazepam 2 mg 06/15/23 20:46 06/15/23 20:51 Lorazepam 1 Mg Tablet PO 06/15/23 20:47 2 mg ONCE ONE Administration Nicotine 21 mg 06/15/23 22:40 06/15/23 22:53 Nicotine 21 Mg Patch.[id number] TRANSDERMA 06/15/23 22:41 21 mg ONCE ONE Administration Medical Decision Making Medical Decision Making MDM Narrative: 47-year-old female presents for evaluation of suicidal ideation and hearing voices. Patient require medical clearance. We will check a Tylenol level as she does have a history of Tylenol overdose. She denies taking any medications thus far to harm herself today Differential Diagnosis Differential Diagnoses: The differential diagnosis associated with the presentation includes Bipolar disorder Schizoaffective disorder Paranoid delusions Depression Suicidal ideation Lab Data 06/15/23 21:34 06/15/23 21:34 Labs: Lab Results 06/15/23 06/15/23 06/15/23 Range/Units 21:16 21:16 21:16 WBC (4.8-10.8) X10*3/uL RBC (4.20-5.50) X10*6/uL Hgb (12.0-16.0) g/dl Hct (37.0-47.0) % MCV (80.0-98.0) fL MCH (27.0-33.0) pg MCHC (31.0-35.0) g/dl RDW (11.0-16.0) % Plt Count (160-400) X10*3/uL MPV (9.4-12.3) fL Immature Gran % (Auto) (0.0-0.4) % Neut % (Auto) (45-73) % Lymph % (Auto) (20-40) % [place] % (Auto) (2-11) % Eos % (Auto) (0-4) % Baso % (Auto) (0-2) % Lymph # (Auto) (1.2-4.9) X10*3/uL [place] # (Auto) (0.1-1.2) X10*3/uL Eos # (Auto) (0.0-0.4) X10*3/uL Baso # (Auto) (0.0-0.2) X10*3/uL Abs Immat Gran (auto) (0.00-0.03) X10*3/uL Absolute Neuts (auto) (2.0-8.3) x10*3/uL Absolute Nucleated RBC (0.0-0.012) X10*3/uL Nucleated RBC % (auto) (0.0-0.2) /100WBC Sodium (135-145) mmol/L Potassium (3.3-5.1) mmol/L Chloride (96-108) mmol/L Carbon Dioxide (22-29) mmol/L Anion Gap (12-20) BUN (9-16) mg/dL Creatinine (0.5-1.4) mg/dL Estim Creat Clear Calc Estimated GFR Random Glucose (60-115) mg/dL Calcium (8.4-10.2) mg/dL Total Bilirubin (0.0-1.0) mg/dL AST (5-31) U/L ALT (0-31) U/L Alkaline Phosphatase (39-117) U/L Total Protein (6.5-8.0) g/dL Albumin (3.5-5.0) g/dL Urine Color Red A Urine Appearance Cloudy Urine pH 5.5 (5.0-9.0) Ur Specific [place] 1.010 (1.005-1.025) Urine Protein 100 (2+) H (Neg-Trace) mg/dL Urine Glucose (UA) Negative (Negative) mg/dL Urine Ketones Negative (Negative) mg/dL Urine Blood Large (3+) H (Negative) Urine Nitrite Negative (Negative) Ur Leukocyte Esterase Moderate (2+) H (Negative) Urine RBC >20 H (0-2) /HPF Urine WBC 21-50 H (0-5) /HPF Ur Squamous Epith Cells 0-2 (0-2) /HPF Urine Bacteria None Seen (None Seen) Hyaline Casts 0-2 (0-2) /LPF Urine Test NEGATIVE (NEGATIVE) Salicylates (15-30) mg/dL Urine Opiates Screen Not Detected (Not Detect) Urine Fentanyl Screen Not Detected (Not Detect) Acetaminophen (<30) mcg/mL Ur Barbiturates Screen Not Detected (Not Detect) Ur Phencyclidine Scrn Not Detected (Not Detect) Ur Amphetamines Screen Not Detected (Not Detect) U Benzodiazepines Scrn Not Detected (Not Detect) Urine Cocaine Screen Not Detected (Not Detect) U Marijuana (THC) Screen Not Detected (Not Detect) Ethyl Alcohol mg/dL 06/15/23 06/15/23 06/15/23 Range/Units 21:34 21:34 21:34 WBC 7.7 (4.8-10.8) X10*3/uL RBC 3.94 L (4.20-5.50) X10*6/uL Hgb 11.2 L (12.0-16.0) g/dl Hct 34.5 L (37.0-47.0) % MCV 87.6 (80.0-98.0) fL MCH 28.4 (27.0-33.0) pg MCHC 32.5 (31.0-35.0) g/dl RDW 13.4 (11.0-16.0) % Plt Count 260 (160-400) X10*3/uL MPV 9.8 (9.4-12.3) fL Immature Gran % (Auto) 0.5 H (0.0-0.4) % Neut % (Auto) 69.5 (45-73) % Lymph % (Auto) 18.1 L (20-40) % [place] % (Auto) 8.6 (2-11) % Eos % (Auto) 2.9 (0-4) % Baso % (Auto) 0.4 (0-2) % Lymph # (Auto) 1.4 (1.2-4.9) X10*3/uL [place] # (Auto) 0.7 (0.1-1.2) X10*3/uL Eos # (Auto) 0.2 (0.0-0.4) X10*3/uL Baso # (Auto) 0.0 (0.0-0.2) X10*3/uL Abs Immat Gran (auto) 0.04 H (0.00-0.03) X10*3/uL Absolute Neuts (auto) 5.4 (2.0-8.3) x10*3/uL Absolute Nucleated RBC 0.000 (0.0-0.012) X10*3/uL Nucleated RBC % (auto) 0.0 (0.0-0.2) /100WBC Sodium 134 L (135-145) mmol/L Potassium 3.7 (3.3-5.1) mmol/L Chloride 104 (96-108) mmol/L Carbon Dioxide 20 L (22-29) mmol/L Anion Gap 14 (12-20) BUN 9 (9-16) mg/dL Creatinine 0.77 (0.5-1.4) mg/dL Estim Creat Clear Calc 105.7 Estimated GFR > 60 Random Glucose 122 H (60-115) mg/dL Calcium 8.9 (8.4-10.2) mg/dL Total Bilirubin 0.3 (0.0-1.0) mg/dL AST 15 (5-31) U/L ALT 10 (0-31) U/L Alkaline Phosphatase 94 (39-117) U/L Total Protein 7.0 (6.5-8.0) g/dL Albumin 4.2 (3.5-5.0) g/dL Urine Color Urine Appearance Urine pH (5.0-9.0) Ur Specific [place] (1.005-1.025) Urine Protein (Neg-Trace) mg/dL Urine Glucose (UA) (Negative) mg/dL Urine Ketones (Negative) mg/dL Urine Blood (Negative) Urine Nitrite (Negative) Ur Leukocyte Esterase (Negative) Urine RBC (0-2) /HPF Urine WBC (0-5) /HPF Ur Squamous Epith Cells (0-2) /HPF Urine Bacteria (None Seen) Hyaline Casts (0-2) /LPF Urine Test (NEGATIVE) Salicylates < 5.0 L (15-30) mg/dL Urine Opiates Screen (Not Detect) Urine Fentanyl Screen (Not Detect) Acetaminophen < 17 (<30) mcg/mL Ur Barbiturates Screen (Not Detect) Ur Phencyclidine Scrn (Not Detect) Ur Amphetamines Screen (Not Detect) U Benzodiazepines Scrn (Not Detect) Urine Cocaine Screen (Not Detect) U Marijuana (THC) Screen (Not Detect) Ethyl Alcohol < 10 mg/dL Discharge Plan Discharge Clinical Impression: Suicidal ideation Patient Disposition: Home, Self-Care Instructions: Suicide Prevention (ED) Additional Instructions: Return for new or worsening symptoms, especially if he have any further thoughts of harming herself Prescriptions: No Action metformin 500 mg tablet 500 mg PO BID pantoprazole 40 mg tablet,delayed release (DR/EC) 40 mg PO DAILY montelukast 10 mg tablet 10 mg PO DAILY lisinopril 5 mg tablet 5 mg PO DAILY mirtazapine 15 mg tablet 7.5 mg PO DAILY fluoxetine 40 mg capsule 80 mg PO QAM atorvastatin 10 mg tablet 10 mg PO DAILY hydroxyzine pamoate 50 mg capsule 100 mg PO BID trazodone 150 mg tablet 150 mg PO BEDTIME benztropine 1 mg tablet 1 mg PO BID albuterol sulfate [Ventolin HFA] 90 mcg/actuation HFA aerosol inhaler 2 puff inhalation QID PRN (Reason: Shortness Of Breath Or Wheezing) ondansetron 4 mg tablet,disintegrating 4 mg PO DAILY PRN (Reason: Nausea And Vomiting) fluphenazine HCl 5 mg tablet 5 mg PO BID prazosin 2 mg capsule 4 mg PO BEDTIME [facility] Last Done: 06/15/23 22:51
[2023-06-15] MEDS: LORazepam 1 MG TABLET 2 MG PO (20:51)
[2023-06-15 21:35] LABS: Amphetamine Screen Urine Not Detected (Not Detect); Barbiturates, Urine Not Detected (Not Detect); Benzodiazepines Screen Urine Not Detected (Not Detect); Cannabinoid Screen Urine Not Detected (Not Detect); Cocaine Screen Urine Not Detected (Not Detect); Fentanyl, urine Not Detected (Not Detect); Opiate Screen Urine Not Detected (Not Detect); Phencyclidine Screen Urine Not Detected (Not Detect)
[2023-06-15 21:39] LABS: MANUAL DIFF FLAG NO
[2023-06-15 21:40] LABS: UPreg QC Valid YES; Urine Pregnancy NEGATIVE (NEGATIVE)
[2023-06-15 21:41] LABS: Basophils Percent Auto 0.4 % (0-2); Eosinophils Absolute Auto 0.2 X10*3/uL (0.0-0.4); Eosinophils Percent Auto 2.9 % (0-4); Hematocrit 34.5 % (37.0-47.0); Hemoglobin 11.2 g/dl (12.0-16.0); Imm Gran Abs Auto 0.04 X10*3/uL (0.00-0.03); Imm Gran Pct Auto 0.5 % (0.0-0.4); Lymphocytes Absolute Auto 1.4 X10*3/uL (1.2-4.9); Lymphocytes Percent Auto 18.1 % (20-40); Mean Corpuscular HGB Conc 32.5 g/dl (31.0-35.0); Mean Corpuscular Hemoglobin 28.4 pg (27.0-33.0); Mean Corpuscular Volume 87.6 fL (80.0-98.0); Mean Platelet Volume 9.8 fL (9.4-12.3); Monocytes Absolute Auto 0.7 X10*3/uL (0.1-1.2); Monocytes Percent Auto 8.6 % (2-11); Neutrophils Absolute Auto 5.4 x10*3/uL (2.0-8.3); Neutrophils Percent Auto 69.5 % (45-73); Platelet Count 260 X10*3/uL (160-400); Red Blood Count 3.94 X10*6/uL (4.20-5.50); Red Cell Distribution Width 13.4 % (11.0-16.0); White Blood Count 7.7 X10*3/uL (4.8-10.8)
[2023-06-15 21:50] LABS: Appearance Urine Cloudy; Color Urine Red; Glucose Urine UA Negative (Negative); Leukocyte Esterase Urine Moderate (2+) (Negative); Nitrite Urine Negative (Negative); PH 5.5 (5.0-9.0); UMIC TRIGGER UA YES; Urine Blood Large (3+) (Negative); Urine Ketones Negative (Negative); Urine Protein 100 (2+) mg/dL (Neg-Trace)
[2023-06-15 22:10] LABS: Bacteria Urine None Seen (None Seen); Hyaline Casts Urine 0-2 /LPF (0-2); RBC Urine >20 /HPF (0-2); Squamous Epithelial Cell Urine 0-2 /HPF (0-2); WBC Urine 21-50 /HPF (0-5)
[2023-06-15 22:14] LABS: Acetaminophen LAB < 17 mcg/mL (<30); Salicylate < 5.0 mg/dL (15-30)
[2023-06-15 22:15] LABS: Alanine Aminotransferase 10 U/L (0-31); Albumin Level 4.2 g/dL (3.5-5.0); Alkaline Phosphatase 94 U/L (39-117); Anion Gap 14 (12-20); Aspartate Amino Transferase 15 U/L (5-31); Bilirubin Total 0.3 mg/dL (0.0-1.0); Blood Urea Nitrogen 9 mg/dL (9-16); Calcium 8.9 mg/dL (8.4-10.2); Carbon Dioxide 20 mmol/L (22-29); Chloride 104 mmol/L (96-108); Creatinine Clr Calc Pharmacy 105.7; Estimated Glomerular Filt Rate > 60; Ethanol < 10 mg/dL; Glucose Random 122 mg/dL (60-115); Potassium 3.7 mmol/L (3.3-5.1); Sodium 134 mmol/L (135-145)
[2023-06-15] MEDS: Nicotine 21 MG PATCH.TD24 TRANSDERMA (22:53)
== END 2023-06-16 02:50 | disposition home or self-care (01) ==
PROVIDERS: Emergency Provider Emergency Medicine
DX: R45.851 Suicidal ideations (principal); F43.10 Post-traumatic stress disorder, unspecified; R44.3 Hallucinations, unspecified; F17.210 Nicotine dependence, cigarettes, uncomplicated; Z71.6 Tobacco abuse counseling; Z79.899 Other long term (current) drug therapy
CPT/HCPCS: 36415; 80053; 80143; 80179; 80307; 81001; 81003; 81025; 85025; 99284

== ENCOUNTER 2023-06-16 13:12 | Emergency (ER) | payer MEDICARE, MEDICAID, SELFPAY ==
--- NOTE | 2023-06-16 13:27 | ECG_ITS ---
Test Reason : OD Blood Pressure : / mmHG Vent. Rate : 081 BPM Atrial Rate : 081 BPM P-R Int : 188 ms QRS Dur : 084 ms QT Int : 408 ms P-R-T Axes : 054 044 050 degrees QTc Int : 473 ms Normal sinus rhythm Normal ECG When compared with ECG of 13-JUN-2023 16:58, No significant change was found Referred By: Anahi Kaba Electronically Signed By:JESU EASTMAN
[2023-06-16 13:29] VITALS: BP 129/81; PULSE 89; RESP 16; TEMP 36.8; O2SAT 95; BMI 37.9
--- NOTE | 2023-06-16 13:32 | ED_ITS ---
HPI - Overdose General Chief Complaint: Overdose Stated Complaint: SI Time Seen by Provider: 06/16/23 13:25 Source: patient and EMS Mode of arrival: EMS Limitations: no limitations History of Present Illness HPI Narrative: This is a 47-year-old female who is known well to us who has had multiple admissions for Tylenol overdose is who presents to the ER with complaints of drinking 1/2 bottles of liquid Tylenol 2 hours ago. Patient reports this was an intentional overdose. She is feeling suicidal. She has nausea. No HI, hallucination. No additional physical complaint. No substance use Related Data Home Medications Medication Instructions Recorded Confirmed lisinopril 5 mg tablet 5 mg PO DAILY 04/12/23 06/15/23 metformin 500 mg tablet 500 mg PO BID 04/12/23 06/15/23 mirtazapine 15 mg tablet 7.5 mg PO DAILY 04/12/23 06/15/23 montelukast 10 mg tablet 10 mg PO DAILY 04/12/23 06/15/23 pantoprazole 40 mg tablet,delayed 40 mg PO DAILY 04/12/23 06/15/23 release fluphenazine HCl 5 mg tablet 5 mg PO BID 05/09/23 06/15/23 prazosin 2 mg capsule 4 mg PO BEDTIME 05/28/23 06/15/23 albuterol sulfate 90 mcg/actuation 2 puff inhalation QID PRN 06/15/23 06/15/23 aerosol inhaler (Ventolin HFA) Shortness Of Breath Or Wheezing atorvastatin 10 mg tablet 10 mg PO DAILY 06/15/23 06/15/23 benztropine 1 mg tablet 1 mg PO BID 06/15/23 06/15/23 fluoxetine 40 mg capsule 80 mg PO QAM 06/15/23 06/15/23 hydroxyzine pamoate 50 mg capsule 100 mg PO BID 06/15/23 06/15/23 ondansetron 4 mg disintegrating 4 mg PO DAILY PRN Nausea And 06/15/23 06/15/23 tablet Vomiting trazodone 150 mg tablet 150 mg PO BEDTIME 06/15/23 06/15/23 Allergies Allergy/AdvReac Type Severity Reaction Status Date / Time azithromycin [AZITHROMYCIN] Allergy Severe Rash Verified 06/16/23 13:35 Fish Containing Products Allergy Severe Anaphylaxis Verified 06/16/23 13:35 codeine [Codeine] Allergy Intermediate Rash Verified 06/16/23 13:35 Penicillins Allergy Intermediate Rash Verified 06/16/23 13:35 prednisone [Prednisone] Allergy Intermediate Rash Verified 06/16/23 13:35 Sulfa (Sulfonamide Allergy Intermediate Rash Verified 06/16/23 13:35 Antibiotics) [Sulfa (Sulfonamides)] ziprasidone [From Geodon] Allergy Intermediate dysuria, Verified 06/16/23 13:35 rash Review of Systems Review of Systems: Yes all other systems are reviewed and are negative Constitutional: Constitutional: Reports no additional constitutional complaints, Denies body ache(s), Denies chills, Denies fever(s), Denies headache(s) and Denies weakness Eyes: Eyes: Reports no additional eye complaints and Denies change in vision ENT: Reports system reviewed and no additional complaints, except as documented, Denies dizziness, Denies headache(s), Denies nasal congestion, Denies nasal discharge and Denies neck pain Cardiovascular: Cardiovascular: Reports no additional cardiovascular complaints, Denies chest pain, Denies leg edema and Denies dyspnea Respiratory: Respiratory: Reports no additional respiratory complaints, Denies cough and Denies dyspnea Gastrointestinal: Gastrointestinal: Reports no additional gastrointestinal co mplaints, Denies abdominal pain, Denies diarrhea, Reports nausea and Denies vomiting Genitourinary: Genitourinary: Reports no additional female genitourinary complaints and Denies urinary incontinence Musculoskeletal: Musculoskeletal: Reports no additional musculoskeletal complaints, Denies back pain, Denies arthralgias, Denies joint swelling, Denies neck pain, Denies numbness and Denies tingling Integumentary/Breasts: Skin/Breast: Reports system reviewed and no additional complaints, except as docu and Denies rash Neurologic: Reports system reviewed and no additional complaints, except as documented, Denies Abnormal speech present, Denies dizziness, Denies headache(s), Denies numbness, Denies tingling and Denies weakness [facility] Past Medical History Attestation statement: The following information was validated with the patient. Source: old records reviewed and nursing notes reviewed Medical History Acetaminophen overdose Acetaminophen overdose Acute anxiety Borderline personality disorder Bronchitis Chest pain COVID COVID-19 Depression Diabetes type 2, controlled Dizziness Full body hives GERD (gastroesophageal reflux disease) History of attempted suicide History of non-suicidal self-harm Hyperlipidemia Hypomagnesemia Major depression MDD (major depressive disorder), recurrent episode, severe Mood disorder Overdose PTSD (post-traumatic stress disorder) Suicide attempt Suicide attempt Suicide attempt by acetaminophen overdose UTI (urinary tract infection) Social History Social History 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 Household Members Other:: senior care Housing: Other Housing Other:: senior care Do you presently have visiting nurse or other home services: No Unable to assess alcohol history related to: Unknown Alcohol intake: never Patient Tobacco Use Status: Current everyday Tobacco user Tobacco use type: Cigarette Cigarette Packs Per Day: 1 Cigarettes Per Day: 15 Years Smoked: 22 Smoked in Last 30 Days: No e-Cigarette/Vaping Use: Never Used Use of substances other than those prescribed or required for medical reasons: No Substance Use Type: Marijuana Advance Directives: No Advance Directives Information Provided: No service: No Current occupational status: unemployed and disabled Sexual orientation: Don't Know Physical Exam Vital Signs: Vital Signs: Last Vital Signs Temp 98.3 F 06/16/23 13:29 Pulse 89 06/16/23 13:29 Resp 16 06/16/23 13:29 BP 129/81 06/16/23 13:29 Pulse Ox 95 06/16/23 13:29 O2 Del Method Room Air 06/16/23 13:29 BMI result Body Mass Index 37.9 Const: General: cooperative, healthy appearing, comfortable and no acute distress Orientation/consciousness: patient oriented x3 Limitations: no limitations HEENT: Head: Yes normal to inspection Ears: hearing grossly normal bilaterally General nose exam: Normal external nose present Face and sinus: Yes normal facial exam Mouth: Normal oral and palatal mucosa present Throat: Yes posterior oropharynx normal Eyes: General: appearance normal, both eyes and all related structures Pupils: Equal, round and reactive pupils present Neck: Neck: Yes normal visual inspection Chest: Chest palpation & inspection: normal inspection of the chest Resp: Effort & Inspection: normal respiratory effort Auscultation: clear to auscultation bilaterally Cardio: Rate: regular rate Rhythm: regular rhythm Peripheral pulses: Peripheral pulses 2+ throughout GI: Inspection: Yes normal to inspection Palpation (GI): Soft to palpation and nontender Auscultation: normal bowel sounds Back/Spine/Pelvis: Thoracic/Lumbar Spine: thoracic and lumbar spine normal to inspection Skin: General skin exam: no rashes or lesions noted Neuro: General: patient oriented x3, no focal motor deficits and normal sensation to monofilament Cranial nerves: Yes Equal, round and reactive pupils present Cognition (Neuro): normal cognition Speech: No Abnormal speech present Gait exam (Neuro): Normal gait present Motor exam (neuro): 5/5 motor strength present throughout Extrem: General: Yes normal to inspection Course Course Course Narrative: 1615-4 hr tylenol level is 60 which is down trending. Medically cleared for care team eval. Sign out to Rosana CAPELLAN pending above. Medications Administered Discontinued Medications Generic Name Dose Route Start Last Admin Trade Name Freq PRN Reason Stop Dose Admin Sodium Chloride 1,000 mls @ 999 mls/hr 06/16/23 13:27 06/16/23 14:59 Ns IV 06/16/23 14:27 Infused .Q1H1M STA Infusion Medical Decision Making Medical Decision Making [facility] Narrative: 47-year-old female here after intentional overdose on Tylenol 2 hours prior to arrival Will obtain labs, EKG, drug screen Vitals are stable No evidence of trauma Differential Diagnosis Differential Diagnoses: The differential diagnosis associated with the presentation includes Tylenol overdose Depressed Admission/Observation Consideration of admission/observation: Escalation of care including admission/observation considered Consult Healthcare Provider Management of the patient was discussed with: [employer] Operator [id number] spoke to poison Control. Patient is now 3 hours from her Tylenol ingestion and her Tylenol level is 73. They did recommend repeating her Tylenol level and 1 hour so we me have an accurate for our level before initiating any treatment. Lab Data [facility] Lab Attestation statement: I reviewed the patient's lab results. 06/16/23 13:51 06/16/23 13:51 Labs: Lab Results 06/16/23 06/16/23 06/16/23 Range/Units 13:51 13:51 13:51 WBC 6.6 (4.8-10.8) X10*3/uL RBC 3.61 L (4.20-5.50) X10*6/uL Hgb 10.3 L (12.0-16.0) g/dl Hct 31.5 L (37.0-47.0) % MCV 87.3 (80.0-98.0) fL MCH 28.5 (27.0-33.0) pg MCHC 32.7 (31.0-35.0) g/dl RDW 13.4 (11.0-16.0) % Plt Count 244 (160-400) X10*3/uL MPV 9.8 (9.4-12.3) fL Immature Gran % (Auto) 0.5 H (0.0-0.4) % Neut % (Auto) 68.5 (45-73) % Lymph % (Auto) 16.9 L (20-40) % [place] % (Auto) 9.2 (2-11) % Eos % (Auto) 4.4 H (0-4) % Baso % (Auto) 0.5 (0-2) % Lymph # (Auto) 1.1 L (1.2-4.9) X10*3/uL [place] # (Auto) 0.6 (0.1-1.2) X10*3/uL Eos # (Auto) 0.3 (0.0-0.4) X10*3/uL Baso # (Auto) 0.0 (0.0-0.2) X10*3/uL Abs Immat Gran (auto) 0.03 (0.00-0.03) X10*3/uL Absolute Neuts (auto) 4.6 (2.0-8.3) x10*3/uL Absolute Nucleated RBC 0.000 (0.0-0.012) X10*3/uL Nucleated RBC % (auto) 0.0 (0.0-0.2) /100WBC Sodium 139 (135-145) mmol/L Potassium 4.7 D (3.3-5.1) mmol/L Chloride 109 H (96-108) mmol/L Carbon Dioxide 20 L (22-29) mmol/L Anion Gap 15 (12-20) BUN 11 (9-16) mg/dL Creatinine 0.97 (0.5-1.4) mg/dL Estim Creat Clear Calc 85.0 Estimated GFR > 60 Random Glucose 155 H (60-115) mg/dL Calcium 9.0 (8.4-10.2) mg/dL Magnesium 2.1 (1.6-2.6) mg/dL Total Bilirubin 0.2 (0.0-1.0) mg/dL Direct Bilirubin < 0.2 (0.0-0.5) mg/dL AST 28 (5-31) U/L ALT 11 (0-31) U/L Alkaline Phosphatase 85 (39-117) U/L Total Protein 6.6 (6.5-8.0) g/dL Albumin 3.7 (3.5-5.0) g/dL Salicylates < 5.0 L (15-30) mg/dL Urine Opiates Screen (Not Detect) Urine Fentanyl Screen (Not Detect) Acetaminophen 73 H* (<30) mcg/mL Ur Barbiturates Screen (Not Detect) Ur Phencyclidine Scrn (Not Detect) Ur Amphetamines Screen (Not Detect) U Benzodiazepines Scrn (Not Detect) Urine Cocaine Screen (Not Detect) U Marijuana (THC) Screen (Not Detect) Ethyl Alcohol mg/dL 06/16/23 06/16/23 06/16/23 Range/Units 13:51 14:44 15:48 WBC (4.8-10.8) X10*3/uL RBC (4.20-5.50) X10*6/uL Hgb (12.0-16.0) g/dl Hct (37.0-47.0) % MCV (80.0-98.0) fL MCH (27.0-33.0) pg MCHC (31.0-35.0) g/dl RDW (11.0-16.0) % Plt Count (160-400) X10*3/uL MPV (9.4-12.3) fL Immature Gran % (Auto) (0.0-0.4) % Neut % (Auto) (45-73) % Lymph % (Auto) (20-40) % [place] % (Auto) (2-11) % Eos % (Auto) (0-4) % Baso % (Auto) (0-2) % Lymph # (Auto) (1.2-4.9) X10*3/uL [place] # (Auto) (0.1-1.2) X10*3/uL Eos # (Auto) (0.0-0.4) X10*3/uL Baso # (Auto) (0.0-0.2) X10*3/uL Abs Immat Gran (auto) (0.00-0.03) X10*3/uL Absolute Neuts (auto) (2.0-8.3) x10*3/uL Absolute Nucleated RBC (0.0-0.012) X10*3/uL Nucleated RBC % (auto) (0.0-0.2) /100WBC Sodium (135-145) mmol/L Potassium (3.3-5.1) mmol/L Chloride (96-108) mmol/L Carbon Dioxide (22-29) mmol/L Anion Gap (12-20) BUN (9-16) mg/dL Creatinine (0.5-1.4) mg/dL Estim Creat Clear Calc Estimated GFR Random Glucose (60-115) mg/dL Calcium (8.4-10.2) mg/dL Magnesium (1.6-2.6) mg/dL Total Bilirubin (0.0-1.0) mg/dL Direct Bilirubin (0.0-0.5) mg/dL AST (5-31) U/L ALT (0-31) U/L Alkaline Phosphatase (39-117) U/L Total Protein (6.5-8.0) g/dL Albumin (3.5-5.0) g/dL Salicylates (15-30) mg/dL Urine Opiates Screen Not Detected (Not Detect) Urine Fentanyl Screen Not Detected (Not Detect) Acetaminophen 60 H* (<30) mcg/mL Ur Barbiturates Screen Not Detected (Not Detect) Ur Phencyclidine Scrn Not Detected (Not Detect) Ur Amphetamines Screen Not Detected (Not Detect) U Benzodiazepines Scrn Not Detected (Not Detect) Urine Cocaine Screen Not Detected (Not Detect) U Marijuana (THC) Screen Not Detected (Not Detect) Ethyl Alcohol < 10 mg/dL Independent Interpretation I performed an independent interpretation of an: EKG Interpretation: I independently reviewed EKG which shows normal sinus rhythm with a rate of 81, normal CT, normal QRS, normal QT Independent Historian Clinical information obtained from an independent historian. History obtained from or confirmed by: EMS Discharge Plan Discharge Clinical Impression: Drug overdose, Acetaminophen overdose Patient Disposition: Still a Patient Prescriptions: No Action metformin 500 mg tablet 500 mg PO BID pantoprazole 40 mg tablet,delayed release (DR/EC) 40 mg PO DAILY montelukast 10 mg tablet 10 mg PO DAILY lisinopril 5 mg tablet 5 mg PO DAILY mirtazapine 15 mg tablet 7.5 mg PO DAILY fluoxetine 40 mg capsule 80 mg PO QAM atorvastatin 10 mg tablet 10 mg PO DAILY hydroxyzine pamoate 50 mg capsule 100 mg PO BID trazodone 150 mg tablet 150 mg PO BEDTIME benztropine 1 mg tablet 1 mg PO BID albuterol sulfate [Ventolin HFA] 90 mcg/actuation HFA aerosol inhaler 2 puff inhalation QID PRN (Reason: Shortness Of Breath Or Wheezing) ondansetron 4 mg tablet,disintegrating 4 mg PO DAILY PRN (Reason: Nausea And Vomiting) fluphenazine HCl 5 mg tablet 5 mg PO BID prazosin 2 mg capsule 4 mg PO BEDTIME
[2023-06-16] MEDS: 0.9 % Sodium Chloride 1,000 ML 999 ML IV (13:53)
[2023-06-16 13:58] LABS: MANUAL DIFF FLAG NO
[2023-06-16 14:03] LABS: Basophils Percent Auto 0.5 % (0-2); Eosinophils Absolute Auto 0.3 X10*3/uL (0.0-0.4); Eosinophils Percent Auto 4.4 % (0-4); Hematocrit 31.5 % (37.0-47.0); Hemoglobin 10.3 g/dl (12.0-16.0); Imm Gran Abs Auto 0.03 X10*3/uL (0.00-0.03); Imm Gran Pct Auto 0.5 % (0.0-0.4); Lymphocytes Absolute Auto 1.1 X10*3/uL (1.2-4.9); Lymphocytes Percent Auto 16.9 % (20-40); Mean Corpuscular HGB Conc 32.7 g/dl (31.0-35.0); Mean Corpuscular Hemoglobin 28.5 pg (27.0-33.0); Mean Corpuscular Volume 87.3 fL (80.0-98.0); Mean Platelet Volume 9.8 fL (9.4-12.3); Monocytes Absolute Auto 0.6 X10*3/uL (0.1-1.2); Monocytes Percent Auto 9.2 % (2-11); Neutrophils Absolute Auto 4.6 x10*3/uL (2.0-8.3); Neutrophils Percent Auto 68.5 % (45-73); Platelet Count 244 X10*3/uL (160-400); Red Blood Count 3.61 X10*6/uL (4.20-5.50); Red Cell Distribution Width 13.4 % (11.0-16.0); White Blood Count 6.6 X10*3/uL (4.8-10.8)
--- NOTE | 2023-06-16 14:06 | PC.NURSE ---
belongings in locker 11
[2023-06-16 14:20] LABS: Alanine Aminotransferase 11 U/L (0-31); Albumin Level 3.7 g/dL (3.5-5.0); Alkaline Phosphatase 85 U/L (39-117); Anion Gap 15 (12-20); Aspartate Amino Transferase 28 U/L (5-31); Bilirubin Direct < 0.2 mg/dL (0.0-0.5); Bilirubin Total 0.2 mg/dL (0.0-1.0); Blood Urea Nitrogen 11 mg/dL (9-16); Carbon Dioxide 20 mmol/L (22-29); Chloride 109 mmol/L (96-108); Estimated Glomerular Filt Rate > 60; Glucose Random 155 mg/dL (60-115); Magnesium 2.1 mg/dL (1.6-2.6); Potassium 4.7 mmol/L (3.3-5.1); Sodium 139 mmol/L (135-145); Total Protein 6.6 g/dL (6.5-8.0)
[2023-06-16 14:21] LABS: Salicylate < 5.0 mg/dL (15-30)
[2023-06-16 14:25] LABS: Acetaminophen LAB 73 mcg/mL (<30); Ethanol < 10 mg/dL
--- NOTE | 2023-06-16 14:26 | PC.NURSE ---
pt on 1:1, changed over as per protocol. provider contacting poison control. 78 in nsr on monitor, resp even nonlaboured. ivf running.
[2023-06-16 15:02] LABS: Amphetamine Screen Urine Not Detected (Not Detect); Barbiturates, Urine Not Detected (Not Detect); Benzodiazepines Screen Urine Not Detected (Not Detect); Cannabinoid Screen Urine Not Detected (Not Detect); Cocaine Screen Urine Not Detected (Not Detect); Fentanyl, urine Not Detected (Not Detect); Opiate Screen Urine Not Detected (Not Detect); Phencyclidine Screen Urine Not Detected (Not Detect)
[2023-06-16 16:14] LABS: Acetaminophen LAB 60 mcg/mL (<30)
--- NOTE | 2023-06-16 16:21 | PC.NURSE ---
APAP LEVEL TRENDING DOWNWARD. PT REMAINS IN NAD, SLEEPING, SITTER AT BEDSIDE. AWAITING CARE TEAM EVAL.
--- NOTE | 2023-06-16 16:51 | PC.NURSE ---
poison control called back and new level was provided- they have closed the case
[2023-06-16 18:59] LABS: Appearance Urine Clear; Color Urine Yellow; Glucose Urine UA Negative (Negative); Leukocyte Esterase Urine Negative (Negative); Nitrite Urine Negative (Negative); PH 5.5 (5.0-9.0); UMIC TRIGGER UACC YES; Urine Blood Large (3+) (Negative); Urine Ketones Negative (Negative); Urine Protein Negative (Neg-Trace)
[2023-06-16 19:04] LABS: Bacteria Urine None Seen (None Seen); Hyaline Casts Urine 0-2 /LPF (0-2); RBC Urine >20 /HPF (0-2); Squamous Epithelial Cell Urine 0-2 /HPF (0-2); WBC Urine 0-5 /HPF (0-5)
== END 2023-06-16 20:28 | disposition home or self-care (01) ==
PROVIDERS: Nurse Practitioner Family; Emergency Provider Emergency Medicine
DX: T39.1X2A Poisoning by 4-Aminophenol derivatives, intentional self-harm, initial encounter (principal); R11.0 Nausea; Y92.049 Unspecified place in boarding-house as the place of occurrence of the external cause; F31.9 Bipolar disorder, unspecified; F41.9 Anxiety disorder, unspecified; R44.0 Auditory hallucinations; F43.12 Post-traumatic stress disorder, chronic; F60.3 Borderline personality disorder; E11.9 Type 2 diabetes mellitus without complications; E78.5 Hyperlipidemia, unspecified; K21.9 Gastro-esophageal reflux disease without esophagitis; D64.9 Anemia, unspecified; E66.9 Obesity, unspecified; Z68.37 Body mass index [BMI] 37.0-37.9, adult; F12.90 Cannabis use, unspecified, uncomplicated; F17.210 Nicotine dependence, cigarettes, uncomplicated; Z91.51 Personal history of suicidal behavior; Z91.52 Personal history of nonsuicidal self-harm; Z79.899 Other long term (current) drug therapy; Z79.84 Long term (current) use of oral hypoglycemic drugs
CPT/HCPCS: 36415; 80048; 80076; 80143; 80179; 80307; 81001; 83735; 85025; 93005; 99285; S9485

== ENCOUNTER 2023-06-17 15:02 | Emergency (ER) | payer MEDICARE, MEDICAID, SELFPAY ==
--- NOTE | 2023-06-17 15:04 | ED.PSYCH ---
HPI - Psych General Chief Complaint: Psychiatric Symptoms Stated Complaint: crisis Source: patient and EMS Mode of arrival: EMS Limitations: no limitations History of Present Illness HPI Narrative: 47-year-old female history of bipolar two with melacholic features, depression, PTSD, diabetes, GERD, suicide attempts presenting to the emergency department with?complaints of depression worsening today, patient reports today is the anniversary of her cousin being killed, patient reports she is having flashbacks. She states that she misses her family member. She endorses intermittent visual and auditory hallucinations, states she just hears voices and shadow speaking to her. Denies drugs, alcohol tobacco. No medical complaints. Not suicidal or homicidal at this time. She reports when she is feeling down she takes a walk, this morning she took a walk in and helped her feel better. Related Data Home Medications Medication Instructions Recorded Confirmed lisinopril 5 mg tablet 5 mg PO DAILY 04/12/23 06/17/23 metformin 500 mg tablet 500 mg PO BID 04/12/23 06/17/23 mirtazapine 15 mg tablet 7.5 mg PO DAILY 04/12/23 06/17/23 montelukast 10 mg tablet 10 mg PO DAILY 04/12/23 06/17/23 pantoprazole 40 mg tablet,delayed 40 mg PO DAILY 04/12/23 06/17/23 release fluphenazine HCl 5 mg tablet 5 mg PO BID 05/09/23 06/17/23 prazosin 2 mg capsule 4 mg PO BEDTIME 05/28/23 06/17/23 albuterol sulfate 90 mcg/actuation 2 puff inhalation QID PRN 06/15/23 06/17/23 aerosol inhaler (Ventolin HFA) Shortness Of Breath Or Wheezing atorvastatin 10 mg tablet 10 mg PO DAILY 06/15/23 06/17/23 benztropine 1 mg tablet 1 mg PO BID 06/15/23 06/17/23 fluoxetine 40 mg capsule 80 mg PO QAM 06/15/23 06/17/23 hydroxyzine pamoate 50 mg capsule 100 mg PO BID 06/15/23 06/17/23 ondansetron 4 mg disintegrating 4 mg PO DAILY PRN Nausea And 06/15/23 06/17/23 tablet Vomiting trazodone 150 mg tablet 150 mg PO BEDTIME 09/01/23 09/03/23 Allergies Allergy/AdvReac Type Severity Reaction Status Date / Time azithromycin [AZITHROMYCIN] Allergy Severe Rash Verified 06/16/23 13:35 Fish Containing Products Allergy Severe Anaphylaxis Verified 06/16/23 13:35 codeine [Codeine] Allergy Intermediate Rash Verified 06/16/23 13:35 Penicillins Allergy Intermediate Rash Verified 06/16/23 13:35 prednisone [Prednisone] Allergy Intermediate Rash Verified 06/16/23 13:35 Sulfa (Sulfonamide Allergy Intermediate Rash Verified 06/16/23 13:35 Antibiotics) [Sulfa (Sulfonamides)] ziprasidone [From Geodon] Allergy Intermediate dysuria, Verified 06/16/23 13:35 rash Review of Systems Review of Systems: Constitutional : No Weight loss, No Fever, No Chills, No Fatigue, No Malaise ENT/Mouth : No sore throat, No Rhinorrhea Eyes: No Eye Pain, No Swelling, No Redness Cardiovascular : No Chest Pain, No SOB, No Dyspnea on Exertion, No Orthopnea, No Edema, No Palpitations Respiratory : No Cough, No Sputum, No Wheezing Gastrointestinal : No Nausea, No Vomiting, No Diarrhea, No Constipation, No abdominal Pain, No Hematochezia, No Melena Genitourinary : No Dysuria, No Urinary Frequency, No Hematuria, Musculoskeletal : No joint pain, No Myalgias, No Joint Swelling Skin : No Skin Lesions, No rash Neuro : No Weakness, No Numbness, No Dizziness, No Headache Psych : + Anxiety/Panic, + Depression, No HI/ SI, + hallucinaitons Yes all other systems are reviewed and are negative [facility] Past Medical History Attestation statement: The following information was validated with the patient. Source: old records reviewed and nursing notes reviewed Medical History Acetaminophen overdose Acetaminophen overdose Acute anxiety Borderline personality disorder Bronchitis Chest pain COVID COVID-19 Depression Diabetes type 2, controlled Dizziness Full body hives GERD (gastroesophageal reflux disease) History of attempted suicide History of non-suicidal self-harm Hyperlipidemia Hypomagnesemia Major depression MDD (major depressive disorder), recurrent episode, severe Mood disorder Overdose PTSD (post-traumatic stress disorder) Suicide attempt Suicide attempt Suicide attempt by acetaminophen overdose UTI (urinary tract infection) Social History Social History 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 Household Members Other:: skilled nursing Housing: Other Housing Other:: skilled nursing Do you presently have visiting nurse or other home services: No Unable to assess alcohol history related to: Unknown Alcohol intake: never Patient Tobacco Use Status: Current everyday Tobacco user Tobacco use type: Cigarette Cigarette Packs Per Day: 1 Cigarettes Per Day: 15 Years Smoked: 22 e-Cigarette/Vaping Use: Never Used Substance Use Type: Marijuana Advance Directives: No Advance Directives Information Provided: No service: No Current occupational status: unemployed and disabled Sexual orientation: Don't Know Physical Exam Vital Signs: Vital Signs: Last Vital Signs Temp 98.5 F 06/17/23 16:06 Pulse 85 06/17/23 16:06 Resp 17 06/17/23 16:06 BP 146/77 H 06/17/23 16:06 Pulse Ox 97 06/17/23 16:06 O2 Del Method Room Air 06/17/23 16:06 BMI result Body Mass Index 46.0 vss Appearance: Alert.? Oriented X3.? No acute distress.? Head:? Normocephalic, atraumatic, no step-offs or deformities Eyes: Pupils equal, round and reactive to light.? Neck: Normal inspection.? Neck supple.? CVS: Normal heart rate and rhythm.? Pulses normal.? Respiratory: No respiratory distress.? Breath sounds normal.? Abdomen: Soft and nontender.? Skin: Skin warm and dry.? Normal skin color.? Normal skin turgor.?Old self-inflicted superficial wounds to? bilateral forearms, anterior thighs bilaterally, stomach Extremities: No lower extremity edema.? No calf ttp.? 5/5 strength to bilateral upper and lower extremities Neuro: Oriented X 3.? No motor deficit.? No sensory deficit. CN 2-12 intact.? Normal [id number], [id number], steady tandem gait normal coordination Course Course Course Narrative: This is a rapid medical exam. Defer additional HPI, ROS, PE department provider. 47-year-old female with a long history of PTSD, diabetes, borderline personality, suicidal ideations?here with suicidal ideations, having flashbacks. Denies any Tylenol use today. Of note, patient was seen here yesterday after a Tylenol overdose. No physical complaints. Will order labs, drug screen Reevaluation(s) Reevaluation #1: Patient's UA without infection. Urine tox negative. Patient has not yet gotten labs she has a test stick. A necessary if they are not able to get them as patient had labs done yesterday. At this time patient will be placed into observation to allow more time to be evaluated by care team. At time observation was started patient common cooperative no acute distress will continue to monitor. Time: 16:14 Medical Decision Making Medical Decision Making MDM Narrative: 47 year-old female presenting with anxiety, depression, visual and auditory hallucinations , suicidal ideation, superficial wounds . Physical examination w/ ? Superficial scar wounds to bilateral forearms,? anterior thigh use, abdomen Likley MDD vs borderline personality do vs anxiety.? Unlikely metabolic causes. Plan- medical clearance and evaluation by care team Differential Diagnosis Differential Diagnoses: The differential diagnosis associated with the presentation includes Likley MDD vs borderline personality do vs anxiety.? Unlikely metabolic causes. Admission/Observation Consideration of admission/observation: Escalation of care including admission/observation considered [facility] Lab Data Labs: Lab Results 06/17/23 06/17/23 06/17/23 Range/Units 15:47 15:47 15:47 Urine Color Red A Urine Appearance Cloudy Urine pH 5.5 (5.0-9.0) Ur Specific [place] 1.010 (1.005-1.025) Urine Protein 30 (1+) H (Neg-Trace) mg/dL Urine Glucose (UA) Negative (Negative) mg/dL Urine Ketones Negative (Negative) mg/dL Urine Blood Large (3+) H (Negative) Urine Nitrite Negative (Negative) Ur Leukocyte Esterase Small (1+) H (Negative) Urine RBC >20 H (0-2) /HPF Urine WBC 6-10 H (0-5) /HPF Ur Squamous Epith Cells 11-20 (0-2) /HPF Urine Bacteria None Seen (None Seen) Hyaline Casts 0-2 (0-2) /LPF Urine Test NEGATIVE (NEGATIVE) Urine Opiates Screen Not Detected (Not Detect) Urine Fentanyl Screen Not Detected (Not Detect) Ur Barbiturates Screen Not Detected (Not Detect) Ur Phencyclidine Scrn Not Detected (Not Detect) Ur Amphetamines Screen Not Detected (Not Detect) U Benzodiazepines Scrn Not Detected (Not Detect) Urine Cocaine Screen Not Detected (Not Detect) U Marijuana (THC) Screen Not Detected (Not Detect) Core Measures AMI core measures followed: Yes Measure exclusions: not indicated Critical Care Time Critical Care Time Critical Care Time: No Discharge Plan Discharge Clinical Impression: Acute anxiety, Depression Patient Disposition: Still a Patient Instructions: Depression (ED), Anxiety (ED) Additional Instructions: Take your medications as prescribed. If you were prescribed antibiotics today, it is important that you take your medication to their entirety, do not skip any doses, do not finish them early. Follow-up with your primary care provider this week. Return to the emergency department with new or worsening symptoms. Such as fevers, chills, chest pain, shortness of breath, nausea, vomiting, dizziness, headache, vision changes, lethargy In case of emergency call 911 Prescriptions: No Action metformin 500 mg tablet 500 mg PO BID pantoprazole 40 mg tablet,delayed release (DR/EC) 40 mg PO DAILY montelukast 10 mg tablet 10 mg PO DAILY lisinopril 5 mg tablet 5 mg PO DAILY mirtazapine 15 mg tablet 7.5 mg PO DAILY fluoxetine 40 mg capsule 80 mg PO QAM atorvastatin 10 mg tablet 10 mg PO DAILY hydroxyzine pamoate 50 mg capsule 100 mg PO BID trazodone 150 mg tablet 150 mg PO BEDTIME benztropine 1 mg tablet 1 mg PO BID albuterol sulfate [Ventolin HFA] 90 mcg/actuation HFA aerosol inhaler 2 puff inhalation QID PRN (Reason: Shortness Of Breath Or Wheezing) ondansetron 4 mg tablet,disintegrating 4 mg PO DAILY PRN (Reason: Nausea And Vomiting) fluphenazine HCl 5 mg tablet 5 mg PO BID prazosin 2 mg capsule 4 mg PO BEDTIME Referrals: ED Physician,Generic [Emergency Provider] - 2 days Interventions: [place]-Suicide Risk Severity Scale Last Done: 06/17/23 16:06
[2023-06-17 15:19] VITALS: BP 146/77; PULSE 85; RESP 18; TEMP 36.9; O2SAT 97; BMI 46.0
[2023-06-17 15:58] LABS: UPreg QC Valid YES; Urine Pregnancy NEGATIVE (NEGATIVE)
[2023-06-17 15:59] LABS: Appearance Urine Cloudy; Color Urine Red; Glucose Urine UA Negative (Negative); Leukocyte Esterase Urine Small (1+) (Negative); Nitrite Urine Negative (Negative); PH 5.5 (5.0-9.0); UMIC TRIGGER UACC YES; Urine Blood Large (3+) (Negative); Urine Ketones Negative (Negative); Urine Protein 30 (1+) mg/dL (Neg-Trace)
[2023-06-17 16:05] LABS: Bacteria Urine None Seen (None Seen); Hyaline Casts Urine 0-2 /LPF (0-2); RBC Urine >20 /HPF (0-2); UACC Culture Trigger YES
[2023-06-17 16:06] VITALS: BP 146/77; PULSE 85; RESP 17; TEMP 36.9; O2SAT 97
[2023-06-17 16:08] LABS: Amphetamine Screen Urine Not Detected (Not Detect); Barbiturates, Urine Not Detected (Not Detect); Benzodiazepines Screen Urine Not Detected (Not Detect); Cannabinoid Screen Urine Not Detected (Not Detect); Cocaine Screen Urine Not Detected (Not Detect); Fentanyl, urine Not Detected (Not Detect); Opiate Screen Urine Not Detected (Not Detect); Phencyclidine Screen Urine Not Detected (Not Detect)
--- NOTE | 2023-06-17 16:56 | PC.NURSE ---
Lucita was BIBA after calling and reporting an increase in her PTSD symptoms. Lucita reported she was ready to leave and safe withing 15 minutes of arriving on the unit.
== END 2023-06-17 16:58 | disposition home or self-care (01) ==
PROVIDERS: Nurse Practitioner Family; Emergency Provider Emergency Medicine; PCP Nurse Practitioner Family
DX: F33.1 Major depressive disorder, recurrent, moderate (principal); F41.1 Generalized anxiety disorder; F43.0 Acute stress reaction; F17.210 Nicotine dependence, cigarettes, uncomplicated; Z71.6 Tobacco abuse counseling; Z79.899 Other long term (current) drug therapy
CPT/HCPCS: 80307; 81001; 81025; 87086; 99284

== ENCOUNTER 2023-06-24 14:41 | Emergency (ER) | payer MEDICARE, MEDICAID, SELFPAY ==
[2023-06-24 14:46] VITALS: BP 116/70; PULSE 80; O2SAT 98
--- NOTE | 2023-06-24 14:57 | ED.PSYCH ---
HPI - Psych General Chief Complaint: Psychiatric Symptoms Stated Complaint: HEARING VOICES FROM [facility] Time Seen by Provider: 06/24/23 15:18 Source: patient Mode of arrival: ambulatory Limitations: no limitations History of Present Illness HPI Narrative: This is a 47-year-old female history of bipolar two with melacholic features, depression, PTSD, diabetes, GERD, suicide attempts presenting to emergency department for evaluation of auditory hallucinations. Reports that she did not have her home medication last night or this morning because she was at [facility] yesterday and this morning, she returned back [facility] the [facility] at about 11:00, therefore she did not receive her medications last night or this morning. She is hearing voices currently, reporting SI at this time not endorsing a specific plan, denies HI. Tells me she may also just be anxious. Related Data Home Medications Medication Instructions Recorded Confirmed lisinopril 5 mg tablet 5 mg PO DAILY 04/12/23 06/17/23 metformin 500 mg tablet 500 mg PO BID 04/12/23 06/17/23 mirtazapine 15 mg tablet 7.5 mg PO DAILY 04/12/23 06/17/23 montelukast 10 mg tablet 10 mg PO DAILY 04/12/23 06/17/23 pantoprazole 40 mg tablet,delayed 40 mg PO DAILY 04/12/23 06/17/23 release fluphenazine HCl 5 mg tablet 5 mg PO BID 05/09/23 06/17/23 prazosin 2 mg capsule 4 mg PO BEDTIME 05/28/23 06/17/23 albuterol sulfate 90 mcg/actuation 2 puff inhalation QID PRN 06/15/23 06/17/23 aerosol inhaler (Ventolin HFA) Shortness Of Breath Or Wheezing atorvastatin 10 mg tablet 10 mg PO DAILY 06/15/23 06/17/23 benztropine 1 mg tablet 1 mg PO BID 06/15/23 06/17/23 fluoxetine 40 mg capsule 80 mg PO QAM 06/15/23 06/17/23 hydroxyzine pamoate 50 mg capsule 100 mg PO BID 06/15/23 06/17/23 ondansetron 4 mg disintegrating 4 mg PO DAILY PRN Nausea And 06/15/23 06/17/23 tablet Vomiting trazodone 150 mg tablet 150 mg PO BEDTIME 06/15/23 06/17/23 Allergies Allergy/AdvReac Type Severity Reaction Status Date / Time azithromycin [AZITHROMYCIN] Allergy Severe Rash Verified 06/24/23 14:57 Fish Containing Products Allergy Severe Anaphylaxis Verified 06/24/23 14:57 codeine [Codeine] Allergy Intermediate Rash Verified 06/24/23 14:57 Penicillins Allergy Intermediate Rash Verified 06/24/23 14:57 prednisone [Prednisone] Allergy Intermediate Rash Verified 06/24/23 14:57 Sulfa (Sulfonamide Allergy Intermediate Rash Verified 06/24/23 14:57 Antibiotics) [Sulfa (Sulfonamides)] ziprasidone [From Geodon] Allergy Intermediate dysuria, Verified 06/24/23 14:57 rash Review of Systems Review of Systems: Constitutional : No Weight loss, No Fever, No Chills, No Fatigue, No Malaise ENT/Mouth : No sore throat, No Rhinorrhea Eyes: No Eye Pain, No Swelling, No Redness Cardiovascular : No Chest Pain, No SOB, No Dyspnea on Exertion, No Orthopnea, No Edema, No Palpitations Respiratory : No Cough, No Sputum, No Wheezing Gastrointestinal : No Nausea, No Vomiting, No Diarrhea, No Constipation, No abdominal Pain, No Hematochezia, No Melena Genitourinary : No Dysuria, No Urinary Frequency, No Hematuria, Musculoskeletal : No joint pain, No Myalgias, No Joint Swelling Skin : No Skin Lesions, No rash Neuro : No Weakness, No Numbness, No Dizziness, No Headache Psych : + Anxiety/Panic, + Depression, No HI/ SI, + hallucinaitons Yes all other systems are reviewed and are negative PMFSH Past Medical History Attestation statement: The following information was validated with the patient. Source: old records reviewed and nursing notes reviewed Medical History Acetaminophen overdose Acetaminophen overdose Acute anxiety Borderline personality disorder Bronchitis Chest pain COVID COVID-19 Depression Diabetes type 2, controlled Dizziness Full body hives GERD (gastroesophageal reflux disease) History of attempted suicide History of non-suicidal self-harm Hyperlipidemia Hypomagnesemia Major depression MDD (major depressive disorder), recurrent episode, severe Mood disorder Overdose PTSD (post-traumatic stress disorder) Suicide attempt Suicide attempt Suicide attempt by acetaminophen overdose UTI (urinary tract infection) Social History Social History 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 Household Members Other:: [facility] Housing: Other Housing Other:: [facility] Do you presently have visiting nurse or other home services: No Unable to assess alcohol history related to: Unknown Alcohol intake: never Patient Tobacco Use Status: Current everyday Tobacco user Tobacco use type: Cigarette Cigarette Packs Per Day: 1 Cigarettes Per Day: 15 Years Smoked: 22 e-Cigarette/Vaping Use: Never Used Substance Use Type: Marijuana Advance Directives: No Advance Directives Information Provided: Yes service: No Current occupational status: unemployed and disabled Sexual orientation: Don't Know Physical Exam Vital Signs: Vital Signs: Last Vital Signs Temp 98 F 06/24/23 14:58 Pulse 85 06/24/23 14:58 Resp 19 06/24/23 14:58 BP 155/96 H 06/24/23 14:58 Pulse Ox 98 06/24/23 14:58 O2 Del Method Room Air 06/24/23 14:58 BMI result Body Mass Index 38.3 vss Appearance: Alert.? Oriented X3.? No acute distress.? Head:? Normocephalic, atraumatic, no step-offs or deformities Eyes: Pupils equal, round and reactive to light.? Neck: Normal inspection.? Neck supple.? CVS: Normal heart rate and rhythm.? Pulses normal.? Respiratory: No respiratory distress.? Breath sounds normal.? Abdomen: Soft and nontender.? Skin: Skin warm and dry.? Normal skin color.? Normal skin turgor.?Old self-inflicted superficial wounds to? bilateral forearms, anterior thighs bilaterally, stomach Extremities: No lower extremity edema.? No calf ttp.? 5/5 strength to bilateral upper and lower extremities Neuro: Oriented X 3.? No motor deficit.? No sensory deficit. CN 2-12 intact.? Normal mldvkg-gf-[id number], xvbo-od-gybq, steady tandem gait normal coordination Course Course Course Narrative: This is an RME: Additional HPI, ROS, PE not included below will be deferred to primary provider. Patient is a 47-year-old female presenting to emergency department for evaluation of auditory hallucinations. Reports that she did not have her medication last night or this morning. States that she was at [facility] yesterday and this morning, she returned [facility] to the [facility] at about 11:00, therefore she did not receive her medications last night or this morning. She is hearing voices currently, reporting SI at this time not endorsing a specific plan, denies HI. Reevaluation(s) Reevaluation #1: Patient very difficult stick. Has had lab work done within the past 8 days, labs a days ago were normal. Denies ingestion of any toxic substances, Tylenol or ibuprofen. At this time patient to be placed into observation to allow more time to be evaluated by behavioral health team. I did tell commercial hvac service technician to keep trying for labs. Sign out to [place] provider Time: 16:08 Medications Administered Discontinued Medications Generic Name Dose Route Start Last Admin Trade Name Freq PRN Reason Stop Dose Admin Lorazepam 2 mg 06/24/23 15:18 06/24/23 15:46 Lorazepam 1 Mg Tablet PO 06/24/23 15:19 2 mg ONCE ONE Administration Medical Decision Making Medical Decision Making [facility] Narrative: 1527 47 year-old female presenting with anxiety, depression, visual and auditory hallucinations , suicidal ideation, superficial wounds . Physical examination w/ ? Superficial scar wounds to bilateral forearms,? anterior thigh use, abdomen Likley MDD vs borderline personality do vs anxiety.? Unlikely metabolic causes. Plan- medical clearance and evaluation by care team Differential Diagnosis Differential Diagnoses: The differential diagnosis associated with the presentation includes Likley MDD vs borderline personality do vs anxiety.? Unlikely metabolic causes. Admission/Observation Consideration of admission/observation: Escalation of care including admission/observation considered Social Determinants Patient?s care significantly limited by Social Determinants of Health including: Other Social Determinant of Health Critical Care Time Critical Care Time Critical Care Time: No Discharge Plan Discharge Clinical Impression: Depression, Acute anxiety Patient Disposition: Still a Patient Prescriptions: No Action metformin 500 mg tablet 500 mg PO BID pantoprazole 40 mg tablet,delayed release (DR/EC) 40 mg PO DAILY montelukast 10 mg tablet 10 mg PO DAILY lisinopril 5 mg tablet 5 mg PO DAILY mirtazapine 15 mg tablet 7.5 mg PO DAILY fluoxetine 40 mg capsule 80 mg PO QAM atorvastatin 10 mg tablet 10 mg PO DAILY hydroxyzine pamoate 50 mg capsule 100 mg PO BID trazodone 150 mg tablet 150 mg PO BEDTIME benztropine 1 mg tablet 1 mg PO BID albuterol sulfate [Ventolin HFA] 90 mcg/actuation HFA aerosol inhaler 2 puff inhalation QID PRN (Reason: Shortness Of Breath Or Wheezing) ondansetron 4 mg tablet,disintegrating 4 mg PO DAILY PRN (Reason: Nausea And Vomiting) fluphenazine HCl 5 mg tablet 5 mg PO BID prazosin 2 mg capsule 4 mg PO BEDTIME
[2023-06-24 14:58] VITALS: BP 155/96; PULSE 85; RESP 19; TEMP 36.6; O2SAT 98; BMI 38.3
[2023-06-24] MEDS: LORazepam 1 MG TABLET 2 MG PO (15:46)
[2023-06-24 16:35] LABS: MANUAL DIFF FLAG NO
[2023-06-24 16:38] LABS: Basophils Percent Auto 0.6 % (0-2); Eosinophils Absolute Auto 0.4 X10*3/uL (0.0-0.4); Eosinophils Percent Auto 5.2 % (0-4); Hematocrit 34.1 % (37.0-47.0); Hemoglobin 11.2 g/dl (12.0-16.0); Imm Gran Abs Auto 0.04 X10*3/uL (0.00-0.03); Imm Gran Pct Auto 0.6 % (0.0-0.4); Lymphocytes Absolute Auto 1.6 X10*3/uL (1.2-4.9); Lymphocytes Percent Auto 22.9 % (20-40); Mean Corpuscular HGB Conc 32.8 g/dl (31.0-35.0); Mean Corpuscular Hemoglobin 28.9 pg (27.0-33.0); Mean Corpuscular Volume 87.9 fL (80.0-98.0); Mean Platelet Volume 9.3 fL (9.4-12.3); Monocytes Absolute Auto 0.6 X10*3/uL (0.1-1.2); Monocytes Percent Auto 8.3 % (2-11); Neutrophils Absolute Auto 4.3 x10*3/uL (2.0-8.3); Neutrophils Percent Auto 62.4 % (45-73); Platelet Count 288 X10*3/uL (160-400); Red Blood Count 3.88 X10*6/uL (4.20-5.50); Red Cell Distribution Width 14.1 % (11.0-16.0); White Blood Count 6.9 X10*3/uL (4.8-10.8)
[2023-06-24 16:52] LABS: COVID-19 Test Negative (Negative); IDNOW Serial# 08D9AD1C
[2023-06-24 17:00] LABS: Acetaminophen LAB < 17 mcg/mL (<30); Alanine Aminotransferase 9 U/L (0-31); Albumin Level 4.1 g/dL (3.5-5.0); Alkaline Phosphatase 100 U/L (39-117); Anion Gap 14 (12-20); Aspartate Amino Transferase 18 U/L (5-31); Bilirubin Total 0.1 mg/dL (0.0-1.0); Blood Urea Nitrogen 8 mg/dL (9-16); Calcium 8.9 mg/dL (8.4-10.2); Carbon Dioxide 24 mmol/L (22-29); Chloride 106 mmol/L (96-108); Estimated Glomerular Filt Rate > 60; Ethanol < 10 mg/dL; Glucose Random 97 mg/dL (60-115); Magnesium 1.9 mg/dL (1.6-2.6); Potassium 3.8 mmol/L (3.3-5.1); Salicylate < 5.0 mg/dL (15-30); Sodium 140 mmol/L (135-145); Total Protein 6.8 g/dL (6.5-8.0)
--- NOTE | 2023-06-24 17:07 | PC.NURSE ---
Alert and oriented. reports SI and can not go back to longterm because when she is home the voices start telling her to harm herself. on 1:1 sitter at this time for safety.
[2023-06-24 17:58] LABS: Appearance Urine Clear; Color Urine Yellow; Glucose Urine UA Negative (Negative); Leukocyte Esterase Urine Negative (Negative); Nitrite Urine Negative (Negative); Specific Gravity - Urine <= 1.005 (1.005-1.025); Urine Blood Negative (Negative); Urine Ketones Negative (Negative); Urine Protein Negative (Neg-Trace)
[2023-06-24 18:08] LABS: Amphetamine Screen Urine Not Detected (Not Detect); Barbiturates, Urine Not Detected (Not Detect); Benzodiazepines Screen Urine Not Detected (Not Detect); Cannabinoid Screen Urine Not Detected (Not Detect); Cocaine Screen Urine Not Detected (Not Detect); Fentanyl, urine Not Detected (Not Detect); Opiate Screen Urine Not Detected (Not Detect); Phencyclidine Screen Urine Not Detected (Not Detect)
[2023-06-24 20:00] VITALS: BP 174/96; PULSE 78; RESP 16; TEMP 36.5; O2SAT 97
== END 2023-06-25 05:11 | disposition home or self-care (01) ==
PROVIDERS: Physician Assistant; Emergency Provider Emergency Medicine
DX: F33.1 Major depressive disorder, recurrent, moderate (principal); R44.0 Auditory hallucinations; F17.210 Nicotine dependence, cigarettes, uncomplicated; Z20.822 Contact with and (suspected) exposure to COVID-19; Z20.828 Contact with and (suspected) exposure to other viral communicable diseases; Z79.899 Other long term (current) drug therapy; Z71.6 Tobacco abuse counseling
CPT/HCPCS: 36415; 80053; 80143; 80179; 80307; 81003; 83735; 85025; 87635; 99284

== ENCOUNTER 2023-06-30 17:02 | Emergency (ER) | payer MEDICARE, MEDICAID, SELFPAY ==
--- NOTE | 2023-06-30 17:10 | ED.GENADULT ---
HPI - General Adult General Chief complaint: Psychiatric Symptoms Stated complaint: si Time Seen by Provider: 06/30/23 17:07 Source: patient and EMS Mode of arrival: EMS Limitations: no limitations History of Present Illness HPI narrative: 47-year-old female history of bipolar two with melacholic features, depression, PTSD, diabetes, GERD, suicide attempts presenting to emergency department for evaluation of auditory hallucinations Patient reports that she has been having a rough day and has been dissociated she tells me she has dissociated 5 time today. Reports auditory hallucinations telling her hurt herself which she tells me she does not want to at this time. Patient denies drugs, alcohol, tobacco. Patient denies medical complaints. No homicidal ideation or suicidal ideation at this time Related Data Home Medications Medication Instructions Recorded Confirmed lisinopril 5 mg tablet 5 mg PO DAILY 04/12/23 06/17/23 metformin 500 mg tablet 500 mg PO BID 04/12/23 06/17/23 mirtazapine 15 mg tablet 7.5 mg PO DAILY 04/12/23 06/17/23 montelukast 10 mg tablet 10 mg PO DAILY 04/12/23 06/17/23 pantoprazole 40 mg tablet,delayed 40 mg PO DAILY 04/12/23 06/17/23 release fluphenazine HCl 5 mg tablet 5 mg PO BID 05/09/23 06/17/23 prazosin 2 mg capsule 4 mg PO BEDTIME 05/28/23 06/17/23 albuterol sulfate 90 mcg/actuation 2 puff inhalation QID PRN 06/15/23 06/17/23 aerosol inhaler (Ventolin HFA) Shortness Of Breath Or Wheezing atorvastatin 10 mg tablet 10 mg PO DAILY 06/15/23 06/17/23 benztropine 1 mg tablet 1 mg PO BID 06/15/23 06/17/23 fluoxetine 40 mg capsule 80 mg PO QAM 06/15/23 06/17/23 hydroxyzine pamoate 50 mg capsule 100 mg PO BID 06/15/23 06/17/23 ondansetron 4 mg disintegrating 4 mg PO DAILY PRN Nausea And 06/15/23 06/17/23 tablet Vomiting trazodone 150 mg tablet 150 mg PO BEDTIME 06/15/23 06/17/23 Allergies Allergy/AdvReac Type Severity Reaction Status Date / Time azithromycin [AZITHROMYCIN] Allergy Severe Rash Verified 06/24/23 14:57 Fish Containing Products Allergy Severe Anaphylaxis Verified 06/24/23 14:57 codeine [Codeine] Allergy Intermediate Rash Verified 06/24/23 14:57 Penicillins Allergy Intermediate Rash Verified 06/24/23 14:57 prednisone [Prednisone] Allergy Intermediate Rash Verified 06/24/23 14:57 Sulfa (Sulfonamide Allergy Intermediate Rash Verified 06/24/23 14:57 Antibiotics) [Sulfa (Sulfonamides)] ziprasidone [From Geodon] Allergy Intermediate dysuria, Verified 06/24/23 14:57 rash Review of Systems Review of Systems: Constitutional : No Weight loss, No Fever, No Chills, No Fatigue, No Malaise ENT/Mouth : No sore throat, No Rhinorrhea Eyes: No Eye Pain, No Swelling, No Redness Cardiovascular : No Chest Pain, No SOB, No Dyspnea on Exertion, No Orthopnea, No Edema, No Palpitations Respiratory : No Cough, No Sputum, No Wheezing Gastrointestinal : No Nausea, No Vomiting, No Diarrhea, No Constipation, No abdominal Pain, No Hematochezia, No Melena Genitourinary : No Dysuria, No Urinary Frequency, No Hematuria, Musculoskeletal : No joint pain, No Myalgias, No Joint Swelling Skin : No Skin Lesions, No rash Neuro : No Weakness, No Numbness, No Dizziness, No Headache Psych : + Anxiety/Panic, + Depression, No HI/ SI, + hallucinaitons Yes all other systems are reviewed and are negative PMFSH Past Medical History Attestation statement: The following information was validated with the patient. Source: old records reviewed and nursing notes reviewed Medical History Acetaminophen overdose Acetaminophen overdose Acute anxiety Borderline personality disorder Bronchitis Chest pain COVID COVID-19 Depression Diabetes type 2, controlled Dizziness Full body hives GERD (gastroesophageal reflux disease) History of attempted suicide History of non-suicidal self-harm Hyperlipidemia Hypomagnesemia Major depression MDD (major depressive disorder), recurrent episode, severe Mood disorder Overdose PTSD (post-traumatic stress disorder) Suicide attempt Suicide attempt Suicide attempt by acetaminophen overdose UTI (urinary tract infection) Social History Social History 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 Household Members Other:: intermediate Housing: Other Housing Other:: intermediate Do you presently have visiting nurse or other home services: No Unable to assess alcohol history related to: Unknown Alcohol intake: never Patient Tobacco Use Status: Current everyday Tobacco user Tobacco use type: Cigarette Cigarette Packs Per Day: 1 Cigarettes Per Day: 15 Years Smoked: 22 e-Cigarette/Vaping Use: Never Used Substance Use Type: Marijuana Advance Directives: No Advance Directives Information Provided: No service: No Current occupational status: unemployed and disabled Sexual orientation: Don't Know Physical Exam ED Vital Signs: Vital Signs - 24 hr 06/30/23 17:36 Temperature 98.4 F Pulse Rate 102 H Respiratory Rate 18 Blood Pressure 125/74 Pulse Oximetry 97 Oxygen Delivery Method Room Air BMI result Body Mass Index 37.2 vss Appearance: Alert.? Oriented X3.? No acute distress.? Head:? Normocephalic, atraumatic, no step-offs or deformities Eyes: Pupils equal, round and reactive to light.? Neck: Normal inspection.? Neck supple.? CVS: Normal heart rate and rhythm.? Pulses normal.? Respiratory: No respiratory distress.? Breath sounds normal.? Abdomen: Soft and nontender.? Skin: Skin warm and dry.? Normal skin color.? Normal skin turgor.?Old self-inflicted superficial wounds to? bilateral forearms, anterior thighs bilaterally, stomach Extremities: No lower extremity edema.? No calf ttp.? 5/5 strength to bilateral upper and lower extremities Neuro: Oriented X 3.? No motor deficit.? No sensory deficit. CN 2-12 intact.? Normal cyclas-ln-htsn, ltic-du-zndb, steady tandem gait normal coordination Course Reevaluation(s) Reevaluation #1: CBC appears to be around patient's baseline. chemistry unremarkable. Salicylates, acetaminophen ethanol negative. Patient calm & cooperative. Hasnt yet given urine. This time patient will be placed into observation. At time observation started patient common cooperative no acute distress. Time: 18:38 Medical Decision Making Medical Decision Making MDM Narrative: 47 year-old female presenting with anxiety, depression, visual and auditory hallucinations , suicidal ideation, superficial wounds . Physical examination w/ ? Superficial scar wounds to bilateral forearms,? anterior thigh use, abdomen Likley MDD vs borderline personality do vs anxiety.? Unlikely metabolic causes. Plan- medical clearance and evaluation by care team Differential Diagnosis Differential Diagnoses: The differential diagnosis associated with the presentation includes Shivley MDD vs borderline personality do vs anxiety.? Unlikely metabolic causes. Admission/Observation Consideration of admission/observation: Escalation of care including admission/observation considered unlikely Lab Data MDM Lab Attestation statement: I reviewed the patient's lab results. 06/30/23 18:09 06/30/23 18:09 Labs: Lab Results 06/30/23 Range/Units 18:09 WBC 7.7 (4.8-10.8) X10*3/uL RBC 3.90 L (4.20-5.50) X10*6/uL Hgb 11.3 L (12.0-16.0) g/dl Hct 34.2 L (37.0-47.0) % MCV 87.7 (80.0-98.0) fL MCH 29.0 (27.0-33.0) pg MCHC 33.0 (31.0-35.0) g/dl RDW 13.6 (11.0-16.0) % Plt Count 292 (160-400) X10*3/uL MPV 9.3 L (9.4-12.3) fL Immature Gran % (Auto) 0.3 (0.0-0.4) % Neut % (Auto) 64.4 (45-73) % Lymph % (Auto) 23.1 (20-40) % [place] % (Auto) 7.5 (2-11) % Eos % (Auto) 4.2 H (0-4) % Baso % (Auto) 0.5 (0-2) % Lymph # (Auto) 1.8 (1.2-4.9) X10*3/uL [place] # (Auto) 0.6 (0.1-1.2) X10*3/uL Eos # (Auto) 0.3 (0.0-0.4) X10*3/uL Baso # (Auto) 0.0 (0.0-0.2) X10*3/uL Abs Immat Gran (auto) 0.02 (0.00-0.03) X10*3/uL Absolute Neuts (auto) 4.9 (2.0-8.3) x10*3/uL Absolute Nucleated RBC 0.000 (0.0-0.012) X10*3/uL Nucleated RBC % (auto) 0.0 (0.0-0.2) /100WBC Sodium 140 (135-145) mmol/L Potassium 3.9 (3.3-5.1) mmol/L Chloride 105 (96-108) mmol/L Carbon Dioxide 25 (22-29) mmol/L Anion Gap 14 (12-20) BUN 7 L (9-16) mg/dL Creatinine 0.71 (0.5-1.4) mg/dL Estim Creat Clear Calc 114.0 Estimated GFR > 60 Random Glucose 119 H (60-115) mg/dL Calcium 9.6 D (8.4-10.2) mg/dL Magnesium 1.6 (1.6-2.6) mg/dL Total Bilirubin 0.2 (0.0-1.0) mg/dL AST 19 (5-31) U/L ALT 16 (0-31) U/L Alkaline Phosphatase 104 (39-117) U/L Total Protein 7.1 (6.5-8.0) g/dL Albumin 4.2 (3.5-5.0) g/dL Salicylates < 5.0 L (15-30) mg/dL Acetaminophen < 17 (<30) mcg/mL Ethyl Alcohol < 10 mg/dL Chronic Conditions Patient?s care impacted by: Other ([facility] d/o) Discharge Plan Discharge Clinical Impression: Borderline personality disorder Patient Disposition: Still a Patient Prescriptions: No Action metformin 500 mg tablet 500 mg PO BID pantoprazole 40 mg tablet,delayed release (DR/EC) 40 mg PO DAILY montelukast 10 mg tablet 10 mg PO DAILY lisinopril 5 mg tablet 5 mg PO DAILY mirtazapine 15 mg tablet 7.5 mg PO DAILY fluoxetine 40 mg capsule 80 mg PO QAM atorvastatin 10 mg tablet 10 mg PO DAILY hydroxyzine pamoate 50 mg capsule 100 mg PO BID trazodone 150 mg tablet 150 mg PO BEDTIME benztropine 1 mg tablet 1 mg PO BID albuterol sulfate [Ventolin HFA] 90 mcg/actuation HFA aerosol inhaler 2 puff inhalation QID PRN (Reason: Shortness Of Breath Or Wheezing) ondansetron 4 mg tablet,disintegrating 4 mg PO DAILY PRN (Reason: Nausea And Vomiting) fluphenazine HCl 5 mg tablet 5 mg PO BID prazosin 2 mg capsule 4 mg PO BEDTIME Interventions: [place]-Suicide Risk Severity Scale Last Done: 06/30/23 17:38
[2023-06-30 17:21] VITALS: BMI 37.2
[2023-06-30 17:36] VITALS: BP 125/74; PULSE 102; RESP 18; TEMP 36.9; O2SAT 97
[2023-06-30 18:14] LABS: MANUAL DIFF FLAG NO
[2023-06-30 18:22] LABS: Basophils Percent Auto 0.5 % (0-2); Eosinophils Absolute Auto 0.3 X10*3/uL (0.0-0.4); Eosinophils Percent Auto 4.2 % (0-4); Hematocrit 34.2 % (37.0-47.0); Hemoglobin 11.3 g/dl (12.0-16.0); Imm Gran Abs Auto 0.02 X10*3/uL (0.00-0.03); Imm Gran Pct Auto 0.3 % (0.0-0.4); Lymphocytes Absolute Auto 1.8 X10*3/uL (1.2-4.9); Lymphocytes Percent Auto 23.1 % (20-40); Mean Corpuscular Volume 87.7 fL (80.0-98.0); Mean Platelet Volume 9.3 fL (9.4-12.3); Monocytes Absolute Auto 0.6 X10*3/uL (0.1-1.2); Monocytes Percent Auto 7.5 % (2-11); Neutrophils Absolute Auto 4.9 x10*3/uL (2.0-8.3); Neutrophils Percent Auto 64.4 % (45-73); Platelet Count 292 X10*3/uL (160-400); Red Cell Distribution Width 13.6 % (11.0-16.0); White Blood Count 7.7 X10*3/uL (4.8-10.8)
[2023-06-30 18:33] LABS: Acetaminophen LAB < 17 mcg/mL (<30); Alanine Aminotransferase 16 U/L (0-31); Albumin Level 4.2 g/dL (3.5-5.0); Alkaline Phosphatase 104 U/L (39-117); Anion Gap 14 (12-20); Aspartate Amino Transferase 19 U/L (5-31); Bilirubin Total 0.2 mg/dL (0.0-1.0); Blood Urea Nitrogen 7 mg/dL (9-16); Calcium 9.6 mg/dL (8.4-10.2); Carbon Dioxide 25 mmol/L (22-29); Chloride 105 mmol/L (96-108); Estimated Glomerular Filt Rate > 60; Ethanol < 10 mg/dL; Glucose Random 119 mg/dL (60-115); Magnesium 1.6 mg/dL (1.6-2.6); Potassium 3.9 mmol/L (3.3-5.1); Salicylate < 5.0 mg/dL (15-30); Sodium 140 mmol/L (135-145); Total Protein 7.1 g/dL (6.5-8.0)
[2023-06-30] MEDS: LORazepam 1 MG TABLET PO (19:15)
[2023-06-30 21:44] LABS: Appearance Urine Clear; Color Urine Yellow; Glucose Urine UA Negative (Negative); Leukocyte Esterase Urine Negative (Negative); Nitrite Urine Negative (Negative); Specific Gravity - Urine <= 1.005 (1.005-1.025); Urine Blood Negative (Negative); Urine Ketones Negative (Negative); Urine Protein Negative (Neg-Trace)
[2023-06-30 21:52] LABS: Amphetamine Screen Urine Not Detected (Not Detect); Barbiturates, Urine Not Detected (Not Detect); Benzodiazepines Screen Urine Not Detected (Not Detect); Cannabinoid Screen Urine Not Detected (Not Detect); Cocaine Screen Urine Not Detected (Not Detect); Fentanyl, urine Not Detected (Not Detect); Opiate Screen Urine Not Detected (Not Detect); Phencyclidine Screen Urine Not Detected (Not Detect)
[2023-06-30 23:32] VITALS: BP 147/77; PULSE 75; RESP 16; TEMP 36.4; O2SAT 95
--- NOTE | 2023-07-01 06:54 | PC.NURSE ---
Patient slept through the night, no distress observed/reported, behavior non concerning, patient's disposition per [facility] is section 12 inpatient bed search, labs completed/resulted, med rec completed/pending provider's approval, VSS, will continue to monitor
[2023-07-01] MEDS: Benztropine Mesylate 1 MG TABLET PO (09:42)
[2023-07-01] MEDS: Omeprazole 20 MG CAPSULE.DR PO (09:42)
[2023-07-01] MEDS: Montelukast Sodium 10 MG TABLET PO (09:42)
[2023-07-01] MEDS: metFORMIN HCl 500 MG TABLET PO (09:42)
[2023-07-01] MEDS: hydrOXYzine HCL 50 MG TABLET 100 MG PO (09:42)
[2023-07-01] MEDS: lisinopriL 5 MG TABLET PO (09:42)
[2023-07-01] MEDS: fluPHENAZine HCl 5 MG TABLET PO (09:42)
[2023-07-01] MEDS: Atorvastatin Calcium 10 MG TABLET PO (09:42)
[2023-07-01] MEDS: FLUoxetine HCl 20 MG CAPSULE 80 MG PO (09:42)
--- NOTE | 2023-07-01 16:00 | PC.NURSE ---
Lucita has been resting in bed or has been visible in the milieu of the POD this shift. Adherent with medications and denying any SI/HI/AVH. Lucita is advocating to go home and reports she is feeling much better then she was when she spoke to [facility].
--- NOTE | 2023-07-01 16:13 | MHC.CARE ---
[facility] met with patient for 24 hr mental status update and cleared her for discharge home. Clinician left voicemail with half-way about change in disposition.
== END 2023-07-01 16:33 | disposition home or self-care (01) ==
PROVIDERS: Physician Assistant; Emergency Provider Emergency Medicine Emergency Medical Services; PCP Nurse Practitioner Family
DX: F60.3 Borderline personality disorder (principal); R45.851 Suicidal ideations; R44.0 Auditory hallucinations; F31.9 Bipolar disorder, unspecified; E11.9 Type 2 diabetes mellitus without complications; K21.9 Gastro-esophageal reflux disease without esophagitis; E78.5 Hyperlipidemia, unspecified; Z79.899 Other long term (current) drug therapy
CPT/HCPCS: 36415; 80053; 80143; 80179; 80307; 81003; 83735; 85025; 99284

== ENCOUNTER 2023-07-06 19:07 | Emergency (ER) | payer MEDICARE, MEDICAID, SELFPAY ==
[2023-07-06 19:22] VITALS: BP 168/98; PULSE 89; RESP 18; TEMP 36.6; O2SAT 98; BMI 40.3
[2023-07-06 19:51] LABS: Appearance Urine Clear; Color Urine Yellow; Glucose Urine UA Negative (Negative); Leukocyte Esterase Urine Moderate (2+) (Negative); Nitrite Urine Negative (Negative); UMIC TRIGGER UA YES; Urine Blood Negative (Negative); Urine Ketones Negative (Negative); Urine Protein Negative (Neg-Trace)
[2023-07-06 19:56] LABS: Bacteria Urine 1+ (None Seen); Hyaline Casts Urine 0-2 /LPF (0-2); RBC Urine 0-2 /HPF (0-2)
[2023-07-06 19:58] LABS: Amphetamine Screen Urine Not Detected (Not Detect); Barbiturates, Urine Not Detected (Not Detect); Benzodiazepines Screen Urine Not Detected (Not Detect); Cannabinoid Screen Urine Not Detected (Not Detect); Cocaine Screen Urine Not Detected (Not Detect); Fentanyl, urine Not Detected (Not Detect); Opiate Screen Urine Not Detected (Not Detect); Phencyclidine Screen Urine Not Detected (Not Detect)
[2023-07-06 20:25] LABS: Imm Gran Abs Auto 0.03 X10*3/uL (0.00-0.03); Imm Gran Pct Auto 0.4 % (0.0-0.4); MANUAL DIFF FLAG SCAN; Neutrophils Absolute Auto 4.5 x10*3/uL (2.0-8.3); PLT CLUMP 1; SCAN SMEAR FLAG 1
[2023-07-06 20:27] LABS: Basophils Percent Auto 0.6 % (0-2); Eosinophils Absolute Auto 0.3 X10*3/uL (0.0-0.4); Eosinophils Percent Auto 3.9 % (0-4); Hematocrit 33.6 % (37.0-47.0); Hemoglobin 10.9 g/dl (12.0-16.0); Lymphocytes Absolute Auto 1.6 X10*3/uL (1.2-4.9); Lymphocytes Percent Auto 23.8 % (20-40); Mean Corpuscular HGB Conc 32.4 g/dl (31.0-35.0); Mean Corpuscular Volume 89.4 fL (80.0-98.0); Monocytes Absolute Auto 0.4 X10*3/uL (0.1-1.2); Monocytes Percent Auto 5.5 % (2-11); Neutrophils Percent Auto 65.8 % (45-73); Red Blood Count 3.76 X10*6/uL (4.20-5.50); Red Cell Distribution Width 13.5 % (11.0-16.0)
[2023-07-06 20:42] LABS: Acetaminophen LAB < 17 mcg/mL (<30); Alanine Aminotransferase 9 U/L (0-31); Alkaline Phosphatase 99 U/L (39-117); Anion Gap 16 (12-20); Aspartate Amino Transferase 14 U/L (5-31); Bilirubin Total 0.2 mg/dL (0.0-1.0); Blood Urea Nitrogen 11 mg/dL (9-16); Calcium 9.3 mg/dL (8.4-10.2); Carbon Dioxide 18 mmol/L (22-29); Chloride 107 mmol/L (96-108); Creatinine Clr Calc Pharmacy 117.5; Estimated Glomerular Filt Rate > 60; Ethanol < 10 mg/dL; Glucose Random 132 mg/dL (60-115); Potassium 3.7 mmol/L (3.3-5.1); Salicylate < 5.0 mg/dL (15-30); Sodium 137 mmol/L (135-145); Total Protein 6.8 g/dL (6.5-8.0)
[2023-07-06 20:43] LABS: Platelet Count 176 X10*3/uL (160-400); White Blood Count 6.9 X10*3/uL (4.8-10.8)
[2023-07-06 20:44] LABS: SLIDE REVIEW VERIFIED
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
== END 2023-07-06 22:25 | disposition home or self-care (01) ==
PROVIDERS: Emergency Provider Emergency Medicine; PCP Nurse Practitioner Family
DX: S41.111A Laceration without foreign body of right upper arm, initial encounter (principal); S41.112A Laceration without foreign body of left upper arm, initial encounter; F41.1 Generalized anxiety disorder; F43.0 Acute stress reaction; X78.9XXA Intentional self-harm by unspecified sharp object, initial encounter; Y93.9 Activity, unspecified; Y92.9 Unspecified place or not applicable; Y99.9 Unspecified external cause status; Z79.899 Other long term (current) drug therapy; F17.210 Nicotine dependence, cigarettes, uncomplicated; Z71.6 Tobacco abuse counseling
CPT/HCPCS: 36415; 80053; 80143; 80179; 80307; 81001; 85025; 99283

== ENCOUNTER 2023-07-08 15:03 | Emergency (ER) | payer MEDICARE, MEDICAID, SELFPAY ==
[2023-07-08 15:23] VITALS: BP 149/90; PULSE 93; RESP 15; TEMP 36.6; O2SAT 98; BMI 37.2
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
[2023-07-08 15:38] LABS: Appearance Urine Clear; Color Urine Yellow; Glucose Urine UA Negative (Negative); Leukocyte Esterase Urine Negative (Negative); Nitrite Urine Negative (Negative); PH 6.5 (5.0-9.0); Specific Gravity - Urine <= 1.005 (1.005-1.025); Urine Blood Negative (Negative); Urine Ketones Negative (Negative); Urine Protein Negative (Neg-Trace)
[2023-07-08 15:40] LABS: MANUAL DIFF FLAG NO
[2023-07-08 15:45] LABS: COVID-19 Test Negative (Negative); IDNOW Serial# 6674DD1D
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
[2023-07-08 15:46] LABS: Amphetamine Screen Urine Not Detected (Not Detect); Barbiturates, Urine Not Detected (Not Detect); Benzodiazepines Screen Urine Not Detected (Not Detect); Cannabinoid Screen Urine Not Detected (Not Detect); Cocaine Screen Urine Not Detected (Not Detect); Fentanyl, urine Not Detected (Not Detect); Opiate Screen Urine Not Detected (Not Detect); Phencyclidine Screen Urine Not Detected (Not Detect)
[2023-07-08 15:46] LABS: Basophils Percent Auto 0.5 % (0-2); Eosinophils Absolute Auto 0.3 X10*3/uL (0.0-0.4); Eosinophils Percent Auto 3.4 % (0-4); Hematocrit 39.8 % (37.0-47.0); Hemoglobin 12.8 g/dl (12.0-16.0); Imm Gran Abs Auto 0.02 X10*3/uL (0.00-0.03); Imm Gran Pct Auto 0.3 % (0.0-0.4); Lymphocytes Absolute Auto 1.4 X10*3/uL (1.2-4.9); Lymphocytes Percent Auto 18.2 % (20-40); Mean Corpuscular HGB Conc 32.2 g/dl (31.0-35.0); Mean Corpuscular Volume 90.2 fL (80.0-98.0); Mean Platelet Volume 9.7 fL (9.4-12.3); Monocytes Absolute Auto 0.5 X10*3/uL (0.1-1.2); Neutrophils Absolute Auto 5.5 x10*3/uL (2.0-8.3); Neutrophils Percent Auto 70.6 % (45-73); Platelet Count 292 X10*3/uL (160-400); Red Blood Count 4.41 X10*6/uL (4.20-5.50); Red Cell Distribution Width 13.7 % (11.0-16.0); White Blood Count 7.8 X10*3/uL (4.8-10.8)
[2023-07-08 16:00] LABS: Acetaminophen LAB < 17 mcg/mL (<30); Salicylate < 5.0 mg/dL (15-30)
[2023-07-08 16:17] LABS: Anion Gap 17 (12-20); Blood Urea Nitrogen 13 mg/dL (9-16); Calcium 9.4 mg/dL (8.4-10.2); Carbon Dioxide 20 mmol/L (22-29); Chloride 104 mmol/L (96-108); Creatinine Clr Calc Pharmacy 103.8; Estimated Glomerular Filt Rate > 60; Ethanol < 10 mg/dL; Glucose Random 125 mg/dL (60-115); HCG Quantitative < 2 mIU/mL; Potassium 4.1 mmol/L (3.3-5.1); Sodium 137 mmol/L (135-145)
== END 2023-07-08 18:50 | disposition home or self-care (01) ==
PROVIDERS: Registered Nurse Emergency; Emergency Provider Emergency Medicine
DX: R44.0 Auditory hallucinations (principal); F33.1 Major depressive disorder, recurrent, moderate; F17.210 Nicotine dependence, cigarettes, uncomplicated; Z20.822 Contact with and (suspected) exposure to COVID-19; Z20.828 Contact with and (suspected) exposure to other viral communicable diseases; Z71.6 Tobacco abuse counseling; Z79.899 Other long term (current) drug therapy
CPT/HCPCS: 80048; 80143; 80179; 80307; 81003; 84702; 85025; 87635; 99284

== ENCOUNTER 2023-07-13 19:14 | Emergency (ER) | payer MEDICARE, MEDICAID, SELFPAY ==
--- NOTE | 2023-07-13 19:21 | ED_ITS ---
HPI - Psych General Chief Complaint: Psychiatric Symptoms Stated Complaint: SI CUT WRISTS Time Seen by Provider: 07/13/23 19:19 Source: patient and old records reviewed Mode of arrival: EMS Limitations: no limitations History of Present Illness HPI Narrative: 47 yo female with PMH of PTSD, GERD, HLD, Borderline, deperssion, DM here with c/o SI and taking a plate and causing superficial abrasions to arms and abdomen. She states I do not want to live MD complaint: suicidal ideation and feels depressed Onset (ago): year(s) Duration: intermittent and changing over time History of same: Yes Relieving factors: none Exacerbating factors: other Context: significant life stressor Associated psychiatric symptoms: depression, suicidal ideation, racing thoughts and auditory hallucinations Associated symptoms: denies other symptoms If self harm: admits thoughts of self harm and self-inflicted trauma Related Data Home Medications Medication Instructions Recorded Confirmed lisinopril 5 mg tablet 5 mg PO DAILY 04/12/23 07/13/23 metformin 500 mg tablet 500 mg PO BID 04/12/23 07/13/23 mirtazapine 15 mg tablet 7.5 mg PO DAILY 04/12/23 07/13/23 montelukast 10 mg tablet 10 mg PO DAILY 04/12/23 07/13/23 pantoprazole 40 mg tablet,delayed 40 mg PO DAILY 04/12/23 07/13/23 release fluphenazine HCl 5 mg tablet 5 mg PO BID 05/09/23 07/13/23 prazosin 2 mg capsule 4 mg PO BEDTIME 05/28/23 07/13/23 albuterol sulfate 90 mcg/actuation 2 puff inhalation QID PRN 06/15/23 07/13/23 aerosol inhaler (Ventolin HFA) Shortness Of Breath Or Wheezing atorvastatin 10 mg tablet 10 mg PO DAILY 06/15/23 07/13/23 benztropine 1 mg tablet 1 mg PO BID 06/15/23 07/13/23 fluoxetine 40 mg capsule 80 mg PO QAM 06/15/23 07/13/23 hydroxyzine pamoate 50 mg capsule 100 mg PO BID 06/15/23 07/13/23 ondansetron 4 mg disintegrating 4 mg PO DAILY PRN Nausea And 06/15/23 07/13/23 tablet Vomiting trazodone 150 mg tablet 150 mg PO BEDTIME 06/15/23 07/13/23 Allergies Allergy/AdvReac Type Severity Reaction Status Date / Time azithromycin [AZITHROMYCIN] Allergy Severe Rash Verified 07/08/23 15:47 Fish Containing Products Allergy Severe Anaphylaxis Verified 07/08/23 15:47 codeine [Codeine] Allergy Intermediate Rash Verified 07/08/23 15:47 Penicillins Allergy Intermediate Rash Verified 07/08/23 15:47 prednisone [Prednisone] Allergy Intermediate Rash Verified 07/08/23 15:47 Sulfa (Sulfonamide Allergy Intermediate Rash Verified 07/08/23 15:47 Antibiotics) [Sulfa (Sulfonamides)] ziprasidone [From Geodon] Allergy Intermediate dysuria, Verified 07/08/23 15:47 rash Review of Systems 2 Review of Systems: Constitutional : No Fever, No Chills ENT/Mouth : No Ear Pain, No Nasal Congestion, No sore throat Eyes: No Eye Pain, No Swelling, No Redness Cardiovascular : No Chest Pain, No SOB Respiratory : No Cough, No Sputum, No Dyspnea Gastrointestinal : No Nausea, No Vomiting, No Diarrhea, No Hematochezia, No Melena Genitourinary : No Dysuria, No Urinary Frequency, No Hematuria Musculoskeletal : No Myalgias Skin : No Skin Lesions, No rash, pos abrasions Neuro : No Weakness, No Numbness, No Paresthesias, No Dizziness, No Headache Psych : positive Anxiety, positive Depression, positive SI no HI All other systems reviewed and are negative [facility] Past Medical History Attestation statement: The following information was validated with the patient. Source: old records reviewed Medical History Chest pain Acute anxiety COVID-19 Full body hives Major depression Dizziness Suicide attempt UTI (urinary tract infection) Acetaminophen overdose COVID History of attempted suicide History of non-suicidal self-harm Hypomagnesemia Suicide attempt Suicide attempt by acetaminophen overdose Acetaminophen overdose Depression MDD (major depressive disorder), recurrent episode, severe Diabetes type 2, controlled Borderline personality disorder PTSD (post-traumatic stress disorder) Overdose GERD (gastroesophageal reflux disease) Mood disorder Hyperlipidemia Bronchitis Social History Social History 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 Household Members Other:: nursing home Housing: Other Housing Other:: nursing home Do you presently have visiting nurse or other home services: No Unable to assess alcohol history related to: Unknown Alcohol intake: never Patient Tobacco Use Status: Current everyday Tobacco user Tobacco use type: Cigarette Cigarette Packs Per Day: 1 Cigarettes Per Day: 15 Years Smoked: 22 e-Cigarette/Vaping Use: Never Used Substance Use Type: Marijuana Advance Directives: No Advance Directives Information Provided: No service: No Current occupational status: unemployed and disabled Sexual orientation: Don't Know Physical Exam 2 Vital Signs: Vital Signs: Last Vital Signs Temp 97.3 F 07/13/23 19:22 Pulse 98 07/13/23 19:22 Resp 17 07/13/23 19:22 BP 150/87 H 07/13/23 19:22 Pulse Ox 97 07/13/23 19:22 O2 Del Method Room Air 07/13/23 19:22 BMI result Body Mass Index 36.3 Appearance: Alert. Oriented X3. No acute distress. anxious Eyes: Pupils equal, round and reactive to light. ENT: Pharynx normal. Neck: Normal inspection. Neck supple. CVS: Normal heart rate and rhythm. Pulses normal. Respiratory: No respiratory distress. Breath sounds normal. Abdomen: Soft and nontender. Skin: Skin warm and dry. Normal skin color. Normal skin turgor. on abdomen and both upper ext forearms superficial linear lacerations Extremities: No lower extremity edema. No calf ttp Neuro: Oriented X 3. No motor deficit. No sensory deficit. Cn2-12 intact Course Course Course Narrative: Physician observation started at 804pm. Patient placed in physician observation because the patient needed more time for CARE team to asess the need for psych admission. At the time observation was started the patient's vitals were stable, patient is alert and oriented but slightly anxious, Neuro: nonfocal, CV RRR, Lungs clear Medical Decision Making Medical Decision Making MDM Narrative: 47 yo female with PMH of PTSD, GERD, HLD, Borderline, deperssion, DM here with c/o SI and self inflicted trauma to both forearms and abdomen at this time will need local wound care and basic labs/CARE team consult - hx of chronic presentation, chronic SI and chronic self inflicted trauma Differential Diagnosis Differential Diagnoses: The differential diagnosis associated with the presentation includes abrasions, PTSD, SI Admission/Observation Consideration of admission/observation: Escalation of care including admission/observation considered observe until CARE team sees patient Consult Healthcare Provider Management of the patient was discussed with: Behavioral Health Provider Lab Data [facility] Lab Attestation statement: I reviewed the patient's lab results. 07/13/23 19:47 07/13/23 19:47 Labs: Lab Results 07/13/23 Range/Units 19:47 WBC 7.2 (4.8-10.8) X10*3/uL RBC 4.10 L (4.20-5.50) X10*6/uL Hgb 11.9 L (12.0-16.0) g/dl Hct 36.4 L (37.0-47.0) % MCV 88.8 (80.0-98.0) fL MCH 29.0 (27.0-33.0) pg MCHC 32.7 (31.0-35.0) g/dl RDW 13.7 (11.0-16.0) % Plt Count 270 (160-400) X10*3/uL MPV 9.6 (9.4-12.3) fL Immature Gran % (Auto) 0.6 H (0.0-0.4) % Neut % (Auto) 65.2 (45-73) % Lymph % (Auto) 20.4 (20-40) % Granite % (Auto) 7.8 (2-11) % Eos % (Auto) 5.3 H (0-4) % Baso % (Auto) 0.7 (0-2) % Lymph # (Auto) 1.5 (1.2-4.9) X10*3/uL Granite # (Auto) 0.6 (0.1-1.2) X10*3/uL Eos # (Auto) 0.4 (0.0-0.4) X10*3/uL Baso # (Auto) 0.1 (0.0-0.2) X10*3/uL Abs Immat Gran (auto) 0.04 H (0.00-0.03) X10*3/uL Absolute Neuts (auto) 4.7 (2.0-8.3) x10*3/uL Absolute Nucleated RBC 0.000 (0.0-0.012) X10*3/uL Nucleated RBC % (auto) 0.0 (0.0-0.2) /100WBC Independent Historian Clinical information obtained from an independent historian. History obtained from or confirmed by: EMS External Record Review External record reviewed: Inpatient record Social Determinants Patient?s care significantly limited by Social Determinants of Health including: Problems related to primary support group Discharge Plan Discharge Clinical Impression: PTSD (post-traumatic stress disorder), Abrasion Patient Disposition: Still a Patient Prescriptions: No Action metformin 500 mg tablet 500 mg PO BID pantoprazole 40 mg tablet,delayed release (DR/EC) 40 mg PO DAILY montelukast 10 mg tablet 10 mg PO DAILY lisinopril 5 mg tablet 5 mg PO DAILY mirtazapine 15 mg tablet 7.5 mg PO DAILY fluoxetine 40 mg capsule 80 mg PO QAM atorvastatin 10 mg tablet 10 mg PO DAILY hydroxyzine pamoate 50 mg capsule 100 mg PO BID trazodone 150 mg tablet 150 mg PO BEDTIME benztropine 1 mg tablet 1 mg PO BID albuterol sulfate [Ventolin HFA] 90 mcg/actuation HFA aerosol inhaler 2 puff inhalation QID PRN (Reason: Shortness Of Breath Or Wheezing) ondansetron 4 mg tablet,disintegrating 4 mg PO DAILY PRN (Reason: Nausea And Vomiting) fluphenazine HCl 5 mg tablet 5 mg PO BID prazosin 2 mg capsule 4 mg PO BEDTIME
[2023-07-13 19:22] VITALS: BP 150/87; PULSE 98; RESP 17; TEMP 36.3; O2SAT 97; BMI 36.3
[2023-07-13 19:51] LABS: MANUAL DIFF FLAG NO
[2023-07-13 19:52] LABS: Basophils Absolute Auto 0.1 X10*3/uL (0.0-0.2); Basophils Percent Auto 0.7 % (0-2); Eosinophils Absolute Auto 0.4 X10*3/uL (0.0-0.4); Eosinophils Percent Auto 5.3 % (0-4); Hematocrit 36.4 % (37.0-47.0); Hemoglobin 11.9 g/dl (12.0-16.0); Imm Gran Abs Auto 0.04 X10*3/uL (0.00-0.03); Imm Gran Pct Auto 0.6 % (0.0-0.4); Lymphocytes Absolute Auto 1.5 X10*3/uL (1.2-4.9); Lymphocytes Percent Auto 20.4 % (20-40); Mean Corpuscular HGB Conc 32.7 g/dl (31.0-35.0); Mean Corpuscular Volume 88.8 fL (80.0-98.0); Mean Platelet Volume 9.6 fL (9.4-12.3); Monocytes Absolute Auto 0.6 X10*3/uL (0.1-1.2); Monocytes Percent Auto 7.8 % (2-11); Neutrophils Absolute Auto 4.7 x10*3/uL (2.0-8.3); Neutrophils Percent Auto 65.2 % (45-73); Platelet Count 270 X10*3/uL (160-400); Red Cell Distribution Width 13.7 % (11.0-16.0); White Blood Count 7.2 X10*3/uL (4.8-10.8)
[2023-07-13 20:09] LABS: Ethanol < 10 mg/dL
[2023-07-13 20:11] LABS: Alanine Aminotransferase 9 U/L (0-31); Albumin Level 4.3 g/dL (3.5-5.0); Alkaline Phosphatase 91 U/L (39-117); Anion Gap 16 (12-20); Aspartate Amino Transferase 15 U/L (5-31); Bilirubin Total 0.2 mg/dL (0.0-1.0); Blood Urea Nitrogen 7 mg/dL (9-16); Calcium 8.9 mg/dL (8.4-10.2); Carbon Dioxide 22 mmol/L (22-29); Chloride 107 mmol/L (96-108); Creatinine Clr Calc Pharmacy 111.8; Estimated Glomerular Filt Rate > 60; Glucose Random 83 mg/dL (60-115); Potassium 3.6 mmol/L (3.3-5.1); Sodium 141 mmol/L (135-145); Total Protein 7.2 g/dL (6.5-8.0)
[2023-07-13 20:12] LABS: Acetaminophen LAB < 17 mcg/mL (<30); Salicylate < 5.0 mg/dL (15-30)
[2023-07-13 20:24] LABS: Amphetamine Screen Urine Not Detected (Not Detect); Barbiturates, Urine Not Detected (Not Detect); Benzodiazepines Screen Urine Not Detected (Not Detect); Cannabinoid Screen Urine Not Detected (Not Detect); Cocaine Screen Urine Not Detected (Not Detect); Fentanyl, urine Not Detected (Not Detect); Opiate Screen Urine Not Detected (Not Detect); Phencyclidine Screen Urine Not Detected (Not Detect)
[2023-07-13 20:41] LABS: Appearance Urine Clear; Color Urine Red; Glucose Urine UA Negative (Negative); Leukocyte Esterase Urine Moderate (2+) (Negative); Nitrite Urine Negative (Negative); Specific Gravity - Urine <= 1.005 (1.005-1.025); UMIC TRIGGER UA YES; Urine Blood Large (3+) (Negative); Urine Ketones Negative (Negative); Urine Protein 30 (1+) mg/dL (Neg-Trace)
[2023-07-13 20:42] LABS: Bacteria Urine None Seen (None Seen); Hyaline Casts Urine 0-2 /LPF (0-2); RBC Urine >20 /HPF (0-2); Squamous Epithelial Cell Urine 0-2 /HPF (0-2)
[2023-07-13 23:28] VITALS: BP 164/102; PULSE 97; RESP 18; TEMP 35.1; O2SAT 98
--- NOTE | 2023-07-14 06:56 | PC.NURSE ---
Patient slept through the night, no distress observed/reported, med rec completed/pending provider's approval, care consult ordered/pending evaluation, VSS, behavior non concerning, will continue to monitor.
--- NOTE | 2023-07-14 07:00 | PC.NURSE ---
Patient slept through the night, no distress observed/reported, med rec completed/currently not on any medication, behavior non concerning, disposition per care team SAMIRA follow up, patient will be reevaluated, labs completed/resulted, VSS, will continue to monitor.
--- NOTE | 2023-07-14 08:20 | MHC.CARE ---
Pt? CARE Plan was reviewed.? Pt is currently out of hospital provided [employer].? Per pt?s CARE Plan, pt has a self-paid for [employer] card at her assisted. CARE Team contacts the assisted, staff member Arvin answers the phone and stated that he cannot collect pt as he is awaiting relief at this time.? Arvin instructs CARE Team to have Lucita call later.? Arvin stated he is aware of the [employer] Card but is uncertain if Lucita has been putting money in it and believes that even if she was she no longer has any funds available as [facility] and goes through the money very fast. Pt will remain in the waiting room until she can secure a ride.
== END 2023-07-14 07:31 | disposition home or self-care (01) ==
PROVIDERS: Emergency Provider Emergency Medicine; PCP Nurse Practitioner Family
DX: R45.851 Suicidal ideations (principal); F43.12 Post-traumatic stress disorder, chronic; S50.812A Abrasion of left forearm, initial encounter; S50.811A Abrasion of right forearm, initial encounter; S30.811A Abrasion of abdominal wall, initial encounter; X78.0XXA Intentional self-harm by sharp glass, initial encounter; F31.9 Bipolar disorder, unspecified; F60.3 Borderline personality disorder; R44.0 Auditory hallucinations; F41.9 Anxiety disorder, unspecified; E11.9 Type 2 diabetes mellitus without complications; E78.5 Hyperlipidemia, unspecified; D64.9 Anemia, unspecified; K21.9 Gastro-esophageal reflux disease without esophagitis; F12.90 Cannabis use, unspecified, uncomplicated; F17.210 Nicotine dependence, cigarettes, uncomplicated; E66.9 Obesity, unspecified; Z68.36 Body mass index [BMI] 36.0-36.9, adult; Z91.51 Personal history of suicidal behavior; Z91.52 Personal history of nonsuicidal self-harm; Z79.84 Long term (current) use of oral hypoglycemic drugs; Z79.899 Other long term (current) drug therapy; Z79.02 Long term (current) use of antithrombotics/antiplatelets; Y93.9 Activity, unspecified; Y92.049 Unspecified place in boarding-house as the place of occurrence of the external cause; Y99.9 Unspecified external cause status
CPT/HCPCS: 36415; 80053; 80143; 80179; 80307; 81001; 85025; 99284; S9485

== ENCOUNTER 2023-07-14 20:10 | Inpatient (IN) | payer MEDICARE, MEDICAID, SELFPAY ==
--- NOTE | 2023-07-14 | ECG_ITS ---
Test Reason : overdose Blood Pressure : / mmHG Vent. Rate : 088 BPM Atrial Rate : 088 BPM P-R Int : 178 ms QRS Dur : 084 ms QT Int : 384 ms P-R-T Axes : 061 049 061 degrees QTc Int : 464 ms Normal sinus rhythm Possible Left atrial enlargement Borderline ECG When compared with ECG of 16-JUN-2023 14:19, No significant change was found Referred By: Generic ED Physician Electronically Signed By:JESU EASTMAN
[2023-07-14 20:14] VITALS: BP 131/100; PULSE 99; O2SAT 97
--- NOTE | 2023-07-14 20:22 | ED.GENADULT ---
HPI - General Adult General Chief complaint: Psychiatric Symptoms Stated complaint: SI attempt, pt took 09503cg tylenol per ems Time Seen by Provider: 07/14/23 20:22 Source: patient and RN notes reviewed History of Present Illness HPI narrative: 47-year-old female was a history of PTSD, diabetes, depression, borderline personality disorder, presents by EMS for evaluation of suicidal ideation status post ingestion of Tylenol. Patient states that she went to the store today and bought a bottle of Tylenol 500 mg tablets. Patient states he took 24 of them at approximately 7:15 p.m.. He adamantly denies any other: Just since. She reports mild GI upset at this time. She denies any fevers chills nausea or vomiting. No diarrhea. She denies any other illicit drug or pill use. She continues to endorse suicidal ideation. Patient was seen in the emergency department yesterday for suicidal ideation and cutting. Related Data Home Medications Medication Instructions Recorded Confirmed lisinopril 5 mg tablet 5 mg PO DAILY 04/12/23 07/13/23 metformin 500 mg tablet 500 mg PO BID 04/12/23 07/13/23 mirtazapine 15 mg tablet 7.5 mg PO DAILY 04/12/23 07/13/23 montelukast 10 mg tablet 10 mg PO DAILY 04/12/23 07/13/23 pantoprazole 40 mg tablet,delayed 40 mg PO DAILY 04/12/23 07/13/23 release fluphenazine HCl 5 mg tablet 5 mg PO BID 05/09/23 07/13/23 prazosin 2 mg capsule 4 mg PO BEDTIME 05/28/23 07/13/23 albuterol sulfate 90 mcg/actuation 2 puff inhalation QID PRN 06/15/23 07/13/23 aerosol inhaler (Ventolin HFA) Shortness Of Breath Or Wheezing atorvastatin 10 mg tablet 10 mg PO DAILY 06/15/23 07/13/23 benztropine 1 mg tablet 1 mg PO BID 06/15/23 07/13/23 fluoxetine 40 mg capsule 80 mg PO QAM 06/15/23 07/13/23 hydroxyzine pamoate 50 mg capsule 100 mg PO BID 06/15/23 07/13/23 ondansetron 4 mg disintegrating 4 mg PO DAILY PRN Nausea And 09/01/23 09/29/23 tablet Vomiting trazodone 150 mg tablet 150 mg PO BEDTIME 06/15/23 07/13/23 Allergies Allergy/AdvReac Type Severity Reaction Status Date / Time azithromycin [AZITHROMYCIN] Allergy Severe Rash Verified 07/08/23 15:47 Fish Containing Products Allergy Severe Anaphylaxis Verified 07/08/23 15:47 codeine [Codeine] Allergy Intermediate Rash Verified 07/08/23 15:47 Penicillins Allergy Intermediate Rash Verified 07/08/23 15:47 prednisone [Prednisone] Allergy Intermediate Rash Verified 07/08/23 15:47 Sulfa (Sulfonamide Allergy Intermediate Rash Verified 07/08/23 15:47 Antibiotics) [Sulfa (Sulfonamides)] ziprasidone [From Geodon] Allergy Intermediate dysuria, Verified 07/08/23 15:47 rash Review of Systems Constitutional: Constitutional: Denies chills and Denies fever(s) Eyes: Eyes: Denies change in vision and Denies other (No redness.) ENT: Denies nasal congestion, Denies nasal discharge, Denies neck pain and Denies sore throat Cardiovascular: Cardiovascular: Denies chest pain, Denies palpitations, Denies dyspnea, Denies dyspnea on exertion and Denies orthopnea Respiratory: Respiratory: Denies cough, Denies dyspnea and Denies dyspnea on exertion Gastrointestinal: Gastrointestinal: Reports abdominal pain, Denies melena, Denies hematochezia, Denies diarrhea, Denies nausea and Denies vomiting Genitourinary: Genitourinary: Denies dysuria and Denies urinary urgency Musculoskeletal: Musculoskeletal: Denies back pain, Denies muscle weakness, Denies neck pain and Denies numbness Integumentary/Breasts: Skin/Breast: Denies rash Neurologic: Denies focal weakness and Denies numbness Psychiatric: Psychiatric: Reports depression and Reports suicidal ideation Endocrine: Endocrine: Denies palpitations PMFSH Past Medical History Medical History Chest pain Acute anxiety COVID-19 Full body hives Major depression Dizziness Suicide attempt UTI (urinary tract infection) Acetaminophen overdose COVID History of attempted suicide History of non-suicidal self-harm Hypomagnesemia Suicide attempt Suicide attempt by acetaminophen overdose Acetaminophen overdose Depression MDD (major depressive disorder), recurrent episode, severe Diabetes type 2, controlled Borderline personality disorder PTSD (post-traumatic stress disorder) Overdose GERD (gastroesophageal reflux disease) Mood disorder Hyperlipidemia Bronchitis Social History Social History 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 Household Members Other:: skilled nursing Housing: Other Housing Other:: skilled nursing Do you presently have visiting nurse or other home services: No Unable to assess alcohol history related to: Unknown Alcohol intake: current Alcohol intake frequency: does not drink Patient Tobacco Use Status: Current everyday Tobacco user Tobacco use type: Cigarette Cigarette Packs Per Day: 1 Cigarettes Per Day: 15 Years Smoked: 22 Smoked in Last 30 Days: Yes e-Cigarette/Vaping Use: Never Used Use of substances other than those prescribed or required for medical reasons: No Substance Use Type: Marijuana Advance Directives: No Advance Directives Information Provided: No Patient : No service: No Current occupational status: unemployed and disabled Sexual orientation: Don't Know Physical Exam ED Vital Signs: Vital Signs - 24 hr 07/14/23 20:51 07/14/23 22:31 Temperature 98.1 F Pulse Rate 91 73 Respiratory Rate 19 23 H Blood Pressure 148/84 H 169/97 H Pulse Oximetry 98 95 Oxygen Delivery Method Room Air Room Air BMI result Body Mass Index 38.1 Const General: cooperative, alert and awake Orientation/consciousness: patient oriented x3 Eyes General: appearance normal, both eyes and all related structures Resp Auscultation: clear to auscultation bilaterally Cardio Rate: regular rate Rhythm: regular rhythm GI Other: Abdomen is soft and nontender throughout. No peritoneal signs. Neuro General: patient oriented x3 Psych Thought content: Suicidality present and Depressive thoughts present Course Course Course Narrative: Patient has had a history of attempts in the past with Tylenol ingestion. Refusing to drink activated charcoal. Given the patient's history and large ingestion today, will initiate neck. Discussed with Dr. Hernandez who agrees with plan. Reevaluation(s) Reevaluation #1: I spoke with Jackie from Poison Control at this time. Agrees with current plan. Recommending redraw Tylenol level now. Will call back in a few hours to check in and reassess NAC. Time: 23:21 Reevaluation #2: Poison control contacted RN, since level has improved, patient no longer needs NAC. Time: 01:45 Medications Administered Generic Name Dose Route Start Last Admin Trade Name Freq PRN Reason Stop Dose Admin Sodium Chloride 3 ml 07/15/23 00:00 07/15/23 00:01 0.9 % Sodium Chloride Flush 3 Ml Syringe IVFLUSH 3 ml QSHIFT YULY Administration Discontinued Medications Generic Name Dose Route Start Last Admin Trade Name Elmer PRN Reason Stop Dose Admin Charcoal 100 gm 07/14/23 20:44 07/14/23 21:26 Activated Charcoal 50 Gm/240 Ml Oral.Susp PO 07/14/23 20:45 100 gm ONCE ONE Administration Acetylcysteine 15,000 mg/ 275 mls @ 200 mls/hr 07/14/23 21:15 07/14/23 23:01 Dextrose IV 07/14/23 22:37 Infused ONCE ONE Infusion Medical Decision Making Medical Decision Making [facility] Narrative: 47-year-old female with a long psychiatric history including PTSD, depression and borderline personality disorder, diabetes, [place] [address] mg of Tylenol a at approximately 5:00 p.m. today. Patient has had history of similar attempts in the past. Activated charcoal ordered however patient refusing to drink this. N-acetylcysteine was also immediately ordered with initial loading dose IV. Crisis team notified and made aware. Discussed with Dr. Hernandez who agrees with plan. Differential Diagnosis Differential Diagnoses: The differential diagnosis associated with the presentation includes Toxic ingestion Acetaminophen overdose Depression SI Metabolic abnormality Admission/Observation Consideration of admission/observation: Escalation of care including admission/observation considered Consult Healthcare Provider Management of the patient was discussed with: Hospitalist and Behavioral Health Provider Lab Data [facility] Lab Attestation statement: I reviewed the patient's lab results. Tylenol level elevated at 123 at 2047. 07/14/23 20:47 07/14/23 20:47 Labs: Lab Results 07/14/23 07/14/23 07/14/23 Range/Units 20:47 21:45 21:46 WBC 7.5 (4.8-10.8) X10*3/uL RBC 4.12 L (4.20-5.50) X10*6/uL Hgb 11.9 L (12.0-16.0) g/dl Hct 36.5 L (37.0-47.0) % MCV 88.6 (80.0-98.0) fL MCH 28.9 (27.0-33.0) pg MCHC 32.6 (31.0-35.0) g/dl RDW 13.6 (11.0-16.0) % Plt Count 256 (160-400) X10*3/uL MPV 9.4 (9.4-12.3) fL Immature Gran % (Auto) 0.5 H (0.0-0.4) % Neut % (Auto) 65.0 (45-73) % Lymph % (Auto) 20.7 (20-40) % [place] % (Auto) 7.8 (2-11) % Eos % (Auto) 5.5 H (0-4) % Baso % (Auto) 0.5 (0-2) % Lymph # (Auto) 1.6 (1.2-4.9) X10*3/uL [place] # (Auto) 0.6 (0.1-1.2) X10*3/uL Eos # (Auto) 0.4 (0.0-0.4) X10*3/uL Baso # (Auto) 0.0 (0.0-0.2) X10*3/uL Abs Immat Gran (auto) 0.04 H (0.00-0.03) X10*3/uL Absolute Neuts (auto) 4.9 (2.0-8.3) x10*3/uL Absolute Nucleated RBC 0.000 (0.0-0.012) X10*3/uL Nucleated RBC % (auto) 0.0 (0.0-0.2) /100WBC Sodium 140 (135-145) mmol/L Potassium 4.2 (3.3-5.1) mmol/L Chloride 107 (96-108) mmol/L Carbon Dioxide 21 L (22-29) mmol/L Anion Gap 16 (12-20) BUN 10 (9-16) mg/dL Creatinine 0.75 (0.5-1.4) mg/dL Estim Creat Clear Calc 109.3 Estimated GFR > 60 Random Glucose 120 H (60-115) mg/dL Calcium 9.3 (8.4-10.2) mg/dL Total Bilirubin 0.2 (0.0-1.0) mg/dL AST 17 (5-31) U/L ALT 10 (0-31) U/L Alkaline Phosphatase 92 (39-117) U/L Total Protein 7.1 (6.5-8.0) g/dL Albumin 4.2 (3.5-5.0) g/dL Urine Color Yellow Urine Appearance Clear Urine pH 5.5 (5.0-9.0) Ur Specific [place] <= 1.005 (1.005-1.025) Urine Protein Negative (Neg-Trace) mg/dL Urine Glucose (UA) Negative (Negative) mg/dL Urine Ketones Negative (Negative) mg/dL Urine Blood Large (3+) H (Negative) Urine Nitrite Negative (Negative) Ur Leukocyte Esterase Trace H (Negative) Urine RBC >20 H (0-2) /HPF Urine WBC 0-5 (0-5) /HPF Ur Squamous Epith Cells 0-2 (0-2) /HPF Urine Bacteria None Seen (None Seen) Hyaline Casts 0-2 (0-2) /LPF Salicylates < 5.0 L (15-30) mg/dL Urine Opiates Screen Not Detected (Not Detect) Urine Fentanyl Screen Not Detected (Not Detect) Acetaminophen 123 H* (<30) mcg/mL Ur Barbiturates Screen Not Detected (Not Detect) Ur Phencyclidine Scrn Not Detected (Not Detect) Ur Amphetamines Screen Not Detected (Not Detect) U Benzodiazepines Scrn Not Detected (Not Detect) Urine Cocaine Screen Not Detected (Not Detect) U Marijuana (THC) Screen Not Detected (Not Detect) Ethyl Alcohol < 10 mg/dL COVID-19 (NICK) (Negative) COVID-19 Clin Com 07/14/23 Range/Units 22:50 WBC (4.8-10.8) X10*3/uL RBC (4.20-5.50) X10*6/uL Hgb (12.0-16.0) g/dl Hct (37.0-47.0) % MCV (80.0-98.0) fL MCH (27.0-33.0) pg MCHC (31.0-35.0) g/dl RDW (11.0-16.0) % Plt Count (160-400) X10*3/uL MPV (9.4-12.3) fL Immature Gran % (Auto) (0.0-0.4) % Neut % (Auto) (45-73) % Lymph % (Auto) (20-40) % [place] % (Auto) (2-11) % Eos % (Auto) (0-4) % Baso % (Auto) (0-2) % Lymph # (Auto) (1.2-4.9) X10*3/uL [place] # (Auto) (0.1-1.2) X10*3/uL Eos # (Auto) (0.0-0.4) X10*3/uL Baso # (Auto) (0.0-0.2) X10*3/uL Abs Immat Gran (auto) (0.00-0.03) X10*3/uL Absolute Neuts (auto) (2.0-8.3) x10*3/uL Absolute Nucleated RBC (0.0-0.012) X10*3/uL Nucleated RBC % (auto) (0.0-0.2) /100WBC Sodium (135-145) mmol/L Potassium (3.3-5.1) mmol/L Chloride (96-108) mmol/L Carbon Dioxide (22-29) mmol/L Anion Gap (12-20) BUN (9-16) mg/dL Creatinine (0.5-1.4) mg/dL Estim Creat Clear Calc Estimated GFR Random Glucose (60-115) mg/dL Calcium (8.4-10.2) mg/dL Total Bilirubin (0.0-1.0) mg/dL AST (5-31) U/L ALT (0-31) U/L Alkaline Phosphatase (39-117) U/L Total Protein (6.5-8.0) g/dL Albumin (3.5-5.0) g/dL Urine Color Urine Appearance Urine pH (5.0-9.0) Ur Specific [place] (1.005-1.025) Urine Protein (Neg-Trace) mg/dL Urine Glucose (UA) (Negative) mg/dL Urine Ketones (Negative) mg/dL Urine Blood (Negative) Urine Nitrite (Negative) Ur Leukocyte Esterase (Negative) Urine RBC (0-2) /HPF Urine WBC (0-5) /HPF Ur Squamous Epith Cells (0-2) /HPF Urine Bacteria (None Seen) Hyaline Casts (0-2) /LPF Salicylates (15-30) mg/dL Urine Opiates Screen (Not Detect) Urine Fentanyl Screen (Not Detect) Acetaminophen (<30) mcg/mL Ur Barbiturates Screen (Not Detect) Ur Phencyclidine Scrn (Not Detect) Ur Amphetamines Screen (Not Detect) U Benzodiazepines Scrn (Not Detect) Urine Cocaine Screen (Not Detect) U Marijuana (THC) Screen (Not Detect) Ethyl Alcohol mg/dL COVID-19 (NICK) Negative (Negative) COVID-19 Clin Com See Note Independent Interpretation I performed an independent interpretation of an: EKG Interpretation: Sinus rhythm 88 beats per minute. No acute ischemic changes. QTC 464. Independent Historian Clinical information obtained from an independent historian. History obtained from or confirmed by: EMS Chronic Conditions Patient?s care impacted by: Diabetes Social Determinants Patient?s care significantly limited by Social Determinants of Health including: Problems related to primary support group and Other Social Determinant of Health Critical Care Time Critical Care Time Critical Care Time: Yes Total Critical Care Time: 45 Attestation: Repeat assessments, initiation of N-acetylcysteine, IV fluids. Discussed with multiple providers Discharge Plan Discharge Clinical Impression: Depression with suicidal ideation Overdose on Tylenol Qualifiers: Encounter type: subsequent encounter Injury intent: intentional self-harm Qualified Code(s): T39.1X2D - Poisoning by 4-Aminophenol derivatives, intentional self-harm, subsequent encounter Patient Disposition: Admitted As Inpatient Interventions: [place]-Suicide Risk Severity Scale Last Done: 07/14/23 20:34
[2023-07-14 20:31] VITALS: BMI 38.1
--- NOTE | 2023-07-14 20:43 | PC.NURSE ---
Pt comes to ED after ingesting 24 - 500mg tylenol at approx 1945 with intention to kill herself. Pt has hx of depression and SI, was seen here yesterday for self inflicted injury. Pt is A&Ox4, GCS 15, with warm, dry skin. Pt reports belly pain, nausea, and dizziness. Pt endorses SI at this time. Pt has been changed into clothes, belongings secured, and 1:[address] EKG and bloodwork being obtained at this time. Pt unable to urinate at this time.
[2023-07-14 20:51] VITALS: BP 148/84; PULSE 91; RESP 19; TEMP 36.7; O2SAT 98
[2023-07-14 20:52] LABS: MANUAL DIFF FLAG NO
[2023-07-14 20:54] LABS: Basophils Percent Auto 0.5 % (0-2); Eosinophils Absolute Auto 0.4 X10*3/uL (0.0-0.4); Eosinophils Percent Auto 5.5 % (0-4); Hematocrit 36.5 % (37.0-47.0); Hemoglobin 11.9 g/dl (12.0-16.0); Imm Gran Abs Auto 0.04 X10*3/uL (0.00-0.03); Imm Gran Pct Auto 0.5 % (0.0-0.4); Lymphocytes Absolute Auto 1.6 X10*3/uL (1.2-4.9); Lymphocytes Percent Auto 20.7 % (20-40); Mean Corpuscular HGB Conc 32.6 g/dl (31.0-35.0); Mean Corpuscular Hemoglobin 28.9 pg (27.0-33.0); Mean Corpuscular Volume 88.6 fL (80.0-98.0); Mean Platelet Volume 9.4 fL (9.4-12.3); Monocytes Absolute Auto 0.6 X10*3/uL (0.1-1.2); Monocytes Percent Auto 7.8 % (2-11); Neutrophils Absolute Auto 4.9 x10*3/uL (2.0-8.3); Platelet Count 256 X10*3/uL (160-400); Red Blood Count 4.12 X10*6/uL (4.20-5.50); Red Cell Distribution Width 13.6 % (11.0-16.0); White Blood Count 7.5 X10*3/uL (4.8-10.8)
--- NOTE | 2023-07-14 21:04 | MHC.EDTECH ---
This Tech assumed care of this pt upon arrival. Pt changed over to behavioral health clothinf by security. Pt clothing and valuables locked up in the POD locker #7. EKG done and handed to provider. PT placed on senior grant writer. Labs sents for processing awaiting pt to provide urine
[2023-07-14 21:10] LABS: Alanine Aminotransferase 10 U/L (0-31); Albumin Level 4.2 g/dL (3.5-5.0); Alkaline Phosphatase 92 U/L (39-117); Anion Gap 16 (12-20); Aspartate Amino Transferase 17 U/L (5-31); Bilirubin Total 0.2 mg/dL (0.0-1.0); Blood Urea Nitrogen 10 mg/dL (9-16); Calcium 9.3 mg/dL (8.4-10.2); Carbon Dioxide 21 mmol/L (22-29); Chloride 107 mmol/L (96-108); Creatinine Clr Calc Pharmacy 109.3; Estimated Glomerular Filt Rate > 60; Glucose Random 120 mg/dL (60-115); Potassium 4.2 mmol/L (3.3-5.1); Sodium 140 mmol/L (135-145); Total Protein 7.1 g/dL (6.5-8.0)
[2023-07-14 21:11] LABS: Acetaminophen LAB 123 mcg/mL (<30); Salicylate < 5.0 mg/dL (15-30)
[2023-07-14] MEDS: Activated charcoaL 50 GM/240 ML ORAL.SUSP 100 GM PO (21:26)
[2023-07-14] MEDS: Acetylcysteine 15,000 MG in Dextrose 5 % 200 ML 200 MG IV (21:33)
[2023-07-14 22:03] LABS: Amphetamine Screen Urine Not Detected (Not Detect); Barbiturates, Urine Not Detected (Not Detect); Benzodiazepines Screen Urine Not Detected (Not Detect); Cannabinoid Screen Urine Not Detected (Not Detect); Cocaine Screen Urine Not Detected (Not Detect); Fentanyl, urine Not Detected (Not Detect); Opiate Screen Urine Not Detected (Not Detect); Phencyclidine Screen Urine Not Detected (Not Detect)
[2023-07-14 22:07] LABS: Appearance Urine Clear; Glucose Urine UA Negative (Negative); Leukocyte Esterase Urine Trace (Negative); Nitrite Urine Negative (Negative); PH 5.5 (5.0-9.0); Specific Gravity - Urine <= 1.005 (1.005-1.025); UMIC TRIGGER UACC YES; Urine Blood Large (3+) (Negative); Urine Ketones Negative (Negative); Urine Protein Negative (Neg-Trace)
[2023-07-14 22:08] LABS: Color Urine Yellow
[2023-07-14 22:09] LABS: Bacteria Urine None Seen (None Seen); Hyaline Casts Urine 0-2 /LPF (0-2); RBC Urine >20 /HPF (0-2); Squamous Epithelial Cell Urine 0-2 /HPF (0-2); WBC Urine 0-5 /HPF (0-5)
[2023-07-14 22:31] VITALS: BP 169/97; PULSE 73; RESP 23; O2SAT 95
[2023-07-14 23:13] LABS: COVID-19 Test Negative (Negative); IDNOW Serial# 6674DD1D
--- NOTE | 2023-07-14 23:27 | PC.NURSE ---
Pt is resisting drinking activated charcoal, saying she can't swallow it. Pt swallow reflex is in tact with no problems. Zofran was offered, pt stated it won't do anything. Continuing to encourage drinking charcoal.
--- NOTE | 2023-07-14 23:38 | PM.IMHP ---
History of Present Illness Date of Service: 07/14/23 Chief Complaint: Overdose This is a 47-year-old female past medical history of PTSD, depression, borderline personality disorder, HLD, multiple suicide attempts in the past, comes into the hospital after attempting to commit suicide by ingesting Tylenol. Patient reports she took over 70 pills of Tylenol, she is still suicidal. She denies any chest pain, no abdominal pain nausea no vomiting no diarrhea constipation, no urinary symptoms and no lower extremity edema. On arrival to the ED patient hemodynamically stable no significant abnormal vitals Labs are significant for hemoglobin of 11.7 which is around her baseline, Tylenol level of 123, normal LFTs. Patient started on NAC within control notified, sitter at bedside and will be admitted for further management Review of Systems Review of Systems: Yes all other systems are reviewed and are negative [facility], [facility] Medical History (Updated 07/15/23 @ 06:30 by Ramsey Mauricio MD) Chest pain Acute anxiety COVID-19 Full body hives Major depression Dizziness Suicide attempt UTI (urinary tract infection) Acetaminophen overdose COVID History of attempted suicide History of non-suicidal self-harm Hypomagnesemia Suicide attempt Suicide attempt by acetaminophen overdose Acetaminophen overdose Depression MDD (major depressive disorder), recurrent episode, severe Diabetes type 2, controlled Borderline personality disorder PTSD (post-traumatic stress disorder) Overdose GERD (gastroesophageal reflux disease) Mood disorder Hyperlipidemia Bronchitis Social History Household Members: Other Household Members Other:: prison Housing: Other Housing Other:: prison Do you presently have visiting nurse or other home services: No Unable to assess alcohol history related to: Unknown Alcohol intake: current Alcohol intake frequency: does not drink Patient Tobacco Use Status: Current everyday Tobacco user Tobacco use type: Cigarette Cigarette Packs Per Day: 1 Cigarettes Per Day: 20.0 Years Smoked: 22 Smoked in Last 30 Days: Yes e-Cigarette/Vaping Use: Never Used Patient Interested in Nicotine Replacement: Yes Second Hand Smoke Exposure: Yes Use of substances other than those prescribed or required for medical reasons: No Substance Use Type: Marijuana Currently Displaying Signs/Symptoms of Drug Intoxication Withdrawal: No Any prior treatment program specific to substance use: No Have you been hit, kicked, punched, or otherwise hurt by someone within the past year? If so, by whom?: No Do you feel safe in your current relationship?: Yes Is there a partner from a previous relationship who is making you feel unsafe now?: No Are you made to feel afraid or neglected: No Advance Directives: No Advance Directives Information Provided: No Do you have thoughts of harming others: None Do you have a plan to hurt others: No Plan Recently lost weight without trying: No Eating poorly because of decreased appetite: No Nutrition Risks: No Nutritional Risk Patient : No : No Poor oral hygiene: No service: No Current occupational status: unemployed and disabled Sexual orientation: Don't Know Meds Allergies Allergy/AdvReac Type Severity Reaction Status Date / Time azithromycin [AZITHROMYCIN] Allergy Severe Rash Verified 07/08/23 15:47 Fish Containing Products Allergy Severe Anaphylaxis Verified 07/08/23 15:47 codeine [Codeine] Allergy Intermediate Rash Verified 07/08/23 15:47 Penicillins Allergy Intermediate Rash Verified 07/08/23 15:47 prednisone [Prednisone] Allergy Intermediate Rash Verified 07/08/23 15:47 Sulfa (Sulfonamide Allergy Intermediate Rash Verified 07/08/23 15:47 Antibiotics) [Sulfa (Sulfonamides)] ziprasidone [From Geodon] Allergy Intermediate dysuria, Verified 07/08/23 15:47 rash Home Medications Medication Instructions Recorded Confirmed Last Taken Type lisinopril 5 mg tablet 5 mg PO DAILY 04/12/23 07/13/23 05/27/23 History metformin 500 mg tablet 500 mg PO BID 04/12/23 07/13/23 05/27/23 History mirtazapine 15 mg tablet 7.5 mg PO DAILY 04/12/23 07/13/23 05/27/23 History montelukast 10 mg tablet 10 mg PO DAILY 04/12/23 07/13/23 05/27/23 History pantoprazole 40 mg tablet,delayed 40 mg PO DAILY 04/12/23 07/13/23 05/27/23 History release fluphenazine HCl 5 mg tablet 5 mg PO BID 05/09/23 07/13/23 05/27/23 History prazosin 2 mg capsule 4 mg PO BEDTIME 05/28/23 07/13/23 05/27/23 History albuterol sulfate 90 mcg/actuation 2 puff inhalation QID PRN 06/15/23 07/13/23 Unknown History aerosol inhaler (Ventolin HFA) Shortness Of Breath Or Wheezing atorvastatin 10 mg tablet 10 mg PO DAILY 06/15/23 07/13/23 Unknown History benztropine 1 mg tablet 1 mg PO BID 06/15/23 07/13/23 Unknown History fluoxetine 40 mg capsule 80 mg PO QAM 06/15/23 07/13/23 Unknown History hydroxyzine pamoate 50 mg capsule 100 mg PO BID 06/15/23 07/13/23 Unknown History ondansetron 4 mg disintegrating 4 mg PO DAILY PRN Nausea And 06/15/23 07/13/23 Unknown History tablet Vomiting trazodone 150 mg tablet 150 mg PO BEDTIME 06/15/23 07/13/23 Unknown History Physical Exam Vital Signs and Narrative: Vital Signs: Last Vital Signs Temp 98.1 F 07/14/23 20:51 Pulse 73 07/14/23 22:31 Resp 23 H 07/14/23 22:31 BP 169/97 H 07/14/23 22:31 Pulse Ox 95 07/14/23 22:31 O2 Del Method Room Air 07/14/23 22:31 BMI result Body Mass Index 38.1 Const: General: cooperative and no acute distress Orientation/consciousness: patient oriented x3 Eyes: General: appearance normal, both eyes and all related structures Resp: Effort & Inspection: normal respiratory effort Auscultation: clear to auscultation bilaterally Cardio: Rate: regular rate Rhythm: regular rhythm GI: Palpation (GI): Soft to palpation Auscultation: normal bowel sounds Skin: General skin exam: no rashes or lesions noted Neuro: General: patient oriented x3 Cognition (Neuro): normal cognition Extrem: Other: Many scars of cuts on her arms General: Yes normal to inspection and Yes no pedal edema Psych: Other: Depressed Results Labs 07/15/23 05:34 07/14/23 20:47 Labs: Laboratory Results - last 24 hr 07/14/23 07/14/23 07/14/23 20:47 21:45 21:46 MCV 88.6 MCH 28.9 MCHC 32.6 RDW 13.6 Plt Count 256 MPV 9.4 Immature Gran % (Auto) 0.5 H Neut % (Auto) 65.0 Lymph % (Auto) 20.7 [place] % (Auto) 7.8 Eos % (Auto) 5.5 H Baso % (Auto) 0.5 Lymph # (Auto) 1.6 [place] # (Auto) 0.6 Eos # (Auto) 0.4 Baso # (Auto) 0.0 Abs Immat Gran (auto) 0.04 H Absolute Neuts (auto) 4.9 Absolute Nucleated RBC 0.000 Nucleated RBC % (auto) 0.0 Anion Gap 16 Estim Creat Clear Calc 109.3 Estimated GFR > 60 Random Glucose 120 H Calcium 9.3 Total Bilirubin 0.2 AST 17 ALT 10 Alkaline Phosphatase 92 Total Protein 7.1 Albumin 4.2 Urine Color Yellow Urine Appearance Clear Urine pH 5.5 Ur Specific [place] <= 1.005 Urine Protein Negative Urine Glucose (UA) Negative Urine Ketones Negative Urine Blood Large (3+) H Urine Nitrite Negative Ur Leukocyte Esterase Trace H Urine RBC >20 H Urine WBC 0-5 Ur Squamous Epith Cells 0-2 Urine Bacteria None Seen Hyaline Casts 0-2 Salicylates < 5.0 L Urine Opiates Screen Not Detected Urine Fentanyl Screen Not Detected Acetaminophen 123 H* Ur Barbiturates Screen Not Detected Ur Phencyclidine Scrn Not Detected Ur Amphetamines Screen Not Detected U Benzodiazepines Scrn Not Detected Urine Cocaine Screen Not Detected U Marijuana (THC) Screen Not Detected COVID-19 (NICK) COVID-19 Clin Com 07/14/23 22:50 MCV MCH MCHC RDW Plt Count MPV Immature Gran % (Auto) Neut % (Auto) Lymph % (Auto) [place] % (Auto) Eos % (Auto) Baso % (Auto) Lymph # (Auto) [place] # (Auto) Eos # (Auto) Baso # (Auto) Abs Immat Gran (auto) Absolute Neuts (auto) Absolute Nucleated RBC Nucleated RBC % (auto) Anion Gap Estim Creat Clear Calc Estimated GFR Random Glucose Calcium Total Bilirubin AST ALT Alkaline Phosphatase Total Protein Albumin Urine Color Urine Appearance Urine pH Ur Specific [place] Urine Protein Urine Glucose (UA) Urine Ketones Urine Blood Urine Nitrite Ur Leukocyte Esterase Urine RBC Urine WBC Ur Squamous Epith Cells Urine Bacteria Hyaline Casts Salicylates Urine Opiates Screen Urine Fentanyl Screen Acetaminophen Ur Barbiturates Screen Ur Phencyclidine Scrn Ur Amphetamines Screen U Benzodiazepines Scrn Urine Cocaine Screen U Marijuana (THC) Screen COVID-19 (NICK) Negative COVID-19 Clin Com See Note Assessment and Plan (1) Suicide attempt by acetaminophen overdose: Status: Acute Plan This is a 47-year-old female with past medical history of multiple suicide attempts comes into the hospital with another suicidal attempt by ingesting Tylenol # Tylenol overdose - in an attempt to commit suicide - patient started on NAC - liver panel within normal - poison control notified - repeat Tylenol level - follow LFTs # suicidal attempt - sitter at bedside - care team notified # depression PTSD - continue mood stabilizers # hypertension - stable - continue antihypertensives # diabetes - hold oral antihyperglycemics - will add low-dose sliding scale insulin # GERD - continue PPI DVT prophylaxis: Lovenox Given patient's need for close monitoring of Tylenol toxicity patient require minimum 2 nights inpatient hospital stay for further management monitoring Time Spent With Patient Time: Total time managing care of this patient today ____ minutes. Quality Stroke Does the patient have a stroke diagnosis?: No VTE Prior VTE?: No VTE Risk Level:: Medical - moderate - high VTE Device Contraindication: Treatment Not Indicated VTE Drug Contraindication: N/A - Med Ordered
[2023-07-14 23:47] LABS: Ethanol < 10 mg/dL
[2023-07-14 23:53] VITALS: BP 152/99; PULSE 78; RESP 24; O2SAT 93
[2023-07-15] MEDS: 0.9 % Sodium Chloride Flush 3 ML SYRINGE IVFLUSH ×4 (00:01→20:34)
[2023-07-15 00:16] LABS: Acetaminophen LAB 66 mcg/mL (<30)
--- NOTE | 2023-07-15 01:25 | PC.NURSE ---
Spoke with poison control who reported pt is below toxic level, can stop infusions if pt is asymptomatic. Pt does not currently have any medications running.
--- NOTE | 2023-07-15 03:56 | PC.NURSE ---
Attempted to call report at [phone]. Without hesitation, US stated nurse is busy, will call back.
[2023-07-15 04:18] VITALS: BMI 38.7
[2023-07-15 04:39] VITALS: BP 129/81; PULSE 73; RESP 18; TEMP 36.6; O2SAT 97
[2023-07-15 06:13] LABS: MANUAL DIFF FLAG NO
[2023-07-15 06:18] LABS: Basophils Percent Auto 0.6 % (0-2); Eosinophils Absolute Auto 0.4 X10*3/uL (0.0-0.4); Eosinophils Percent Auto 5.2 % (0-4); Hematocrit 35.7 % (37.0-47.0); Hemoglobin 11.7 g/dl (12.0-16.0); Imm Gran Abs Auto 0.02 X10*3/uL (0.00-0.03); Imm Gran Pct Auto 0.3 % (0.0-0.4); Lymphocytes Absolute Auto 1.5 X10*3/uL (1.2-4.9); Lymphocytes Percent Auto 21.9 % (20-40); Mean Corpuscular HGB Conc 32.8 g/dl (31.0-35.0); Mean Corpuscular Volume 88.4 fL (80.0-98.0); Mean Platelet Volume 9.6 fL (9.4-12.3); Monocytes Absolute Auto 0.7 X10*3/uL (0.1-1.2); Monocytes Percent Auto 9.7 % (2-11); Neutrophils Absolute Auto 4.4 x10*3/uL (2.0-8.3); Neutrophils Percent Auto 62.3 % (45-73); Platelet Count 239 X10*3/uL (160-400); Red Blood Count 4.04 X10*6/uL (4.20-5.50); Red Cell Distribution Width 13.6 % (11.0-16.0)
[2023-07-15 07:19] VITALS: BP 167/94; PULSE 67; RESP 16; TEMP 36.2; O2SAT 97
[2023-07-15 07:38] LABS: Alanine Aminotransferase 9 U/L (0-31); Albumin Level 3.7 g/dL (3.5-5.0); Alkaline Phosphatase 76 U/L (39-117); Anion Gap 13 (12-20); Aspartate Amino Transferase 12 U/L (5-31); Bilirubin Direct < 0.2 mg/dL (0.0-0.5); Bilirubin Total 0.2 mg/dL (0.0-1.0); Blood Urea Nitrogen 9 mg/dL (9-16); Calcium 8.6 mg/dL (8.4-10.2); Carbon Dioxide 22 mmol/L (22-29); Chloride 107 mmol/L (96-108); Creatinine Clr Calc Pharmacy 108.7; Estimated Glomerular Filt Rate > 60; Glucose Random 105 mg/dL (60-115); Potassium 3.3 mmol/L (3.3-5.1); Sodium 139 mmol/L (135-145); Total Protein 6.2 g/dL (6.5-8.0)
[2023-07-15 07:44] LABS: Glucose, Whole Blood 95 mg/dL (60-115)
[2023-07-15] MEDS: Enoxaparin Sodium 40 MG/0.4 ML SYRINGE SUBCUT (07:55)
[2023-07-15 08:11] LABS: Acetaminophen LAB 20 mcg/mL (<30)
--- NOTE | 2023-07-15 08:42 | P.PNIM_ITS ---
Subjective Subjective Date of Service: 07/15/23 Interval History: f/u on SI with APAP overdose off mucomyst, Tylenol level down, denies si Physical Exam 2 Vital Signs: Vital Signs: Last Vital Signs Temp 97.2 F 07/15/23 07:19 Pulse 67 07/15/23 07:19 Resp 16 07/15/23 07:19 BP 167/94 H 07/15/23 07:19 Pulse Ox 97 07/15/23 07:19 O2 Del Method Room Air 07/15/23 07:19 BMI result Body Mass Index 38.7 Const: Other: General: AO X 3, no acute distress Resp: CTA bilateral CVS: S1,S2,RRR GI: +BS, NT, no distention Skin: No rash Neuro: motor grossly intact Psych: appropriate affect Objective Data Active Medications Dextrose (Dextrose 50 % 25 Gm/50 Ml Syringe) 25 gm IVPUSH Q15M PRN; Protocol PRN Reason: per Hypoglycemia Standing Ord. Docusate Sodium (Docusate Sodium 100 Mg Capsule) 100 mg PO DAILY PRN PRN Reason: Constipation Enoxaparin Sodium (Enoxaparin Sodium 40 Mg/0.4 Ml Syringe) 40 mg SUBCUT Q24H [facility] Last Admin: 07/15/23 07:55 Dose: 40 mg Documented By: NENITA Glucose (Glucose Gel 15 Gm Gel..Gram.) 15 gm PO Q15M PRN; Protocol PRN Reason: per Hypoglycemia Standing Ord. Insulin Human Lispro (Insulin Lispro 100 Unit/Ml 3 Ml Vial) 0 unit SUBCUT QIDACHS [facility]; Protocol Last Admin: 07/15/23 07:44 Dose: Not Given Documented By: NENITA Non-Admin Reason: No Insulin Coverage Ondansetron HCl (Ondansetron Hcl 4 Mg/2 Ml Vial) 4 mg IVPUSH Q8H PRN PRN Reason: Nausea and Vomiting Sodium Chloride (0.9 % Sodium Chloride Flush 3 Ml Syringe) [facility] Last Admin: 07/15/23 07:56 Dose: 3 ml Documented By: NENITA Labs 07/15/23 05:34 07/15/23 05:34 Labs: Laboratory Results - last 24 hr 07/14/23 07/14/23 07/14/23 20:47 21:45 21:46 MCV 88.6 MCH 28.9 MCHC 32.6 RDW 13.6 Plt Count 256 MPV 9.4 Immature Gran % (Auto) 0.5 H Neut % (Auto) 65.0 Lymph % (Auto) 20.7 [place] % (Auto) 7.8 Eos % (Auto) 5.5 H Baso % (Auto) 0.5 Lymph # (Auto) 1.6 [place] # (Auto) 0.6 Eos # (Auto) 0.4 Baso # (Auto) 0.0 Abs Immat Gran (auto) 0.04 H Absolute Neuts (auto) 4.9 Absolute Nucleated RBC 0.000 Nucleated RBC % (auto) 0.0 Anion Gap 16 Estim Creat Clear Calc 109.3 Estimated GFR > 60 POC Glucose Random Glucose 120 H Calcium 9.3 Total Bilirubin 0.2 Direct Bilirubin AST 17 ALT 10 Alkaline Phosphatase 92 Total Protein 7.1 Albumin 4.2 Urine Color Yellow Urine Appearance Clear Urine pH 5.5 Ur Specific [place] <= 1.005 Urine Protein Negative Urine Glucose (UA) Negative Urine Ketones Negative Urine Blood Large (3+) H Urine Nitrite Negative Ur Leukocyte Esterase Trace H Urine RBC >20 H Urine WBC 0-5 Ur Squamous Epith Cells 0-2 Urine Bacteria None Seen Hyaline Casts 0-2 Salicylates < 5.0 L Urine Opiates Screen Not Detected Urine Fentanyl Screen Not Detected Acetaminophen 123 H* Ur Barbiturates Screen Not Detected Ur Phencyclidine Scrn Not Detected Ur Amphetamines Screen Not Detected U Benzodiazepines Scrn Not Detected Urine Cocaine Screen Not Detected U Marijuana (THC) Screen Not Detected Ethyl Alcohol < 10 COVID-19 (NICK) COVID-19 Clin Com 07/14/23 07/14/23 07/15/23 22:50 23:50 05:34 MCV 88.4 MCH 29.0 MCHC 32.8 RDW 13.6 Plt Count 239 MPV 9.6 Immature Gran % (Auto) 0.3 Neut % (Auto) 62.3 Lymph % (Auto) 21.9 [place] % (Auto) 9.7 Eos % (Auto) 5.2 H Baso % (Auto) 0.6 Lymph # (Auto) 1.5 [place] # (Auto) 0.7 Eos # (Auto) 0.4 Baso # (Auto) 0.0 Abs Immat Gran (auto) 0.02 Absolute Neuts (auto) 4.4 Absolute Nucleated RBC 0.000 Nucleated RBC % (auto) 0.0 Anion Gap 13 Estim Creat Clear Calc 108.7 Estimated GFR > 60 POC Glucose Random Glucose 105 Calcium 8.6 D Total Bilirubin 0.2 Direct Bilirubin < 0.2 AST 12 ALT 9 Alkaline Phosphatase 76 Total Protein 6.2 L Albumin 3.7 Urine Color Urine Appearance Urine pH Ur Specific [place] Urine Protein Urine Glucose (UA) Urine Ketones Urine Blood Urine Nitrite Ur Leukocyte Esterase Urine RBC Urine WBC Ur Squamous Epith Cells Urine Bacteria Hyaline Casts Salicylates Urine Opiates Screen Urine Fentanyl Screen Acetaminophen 66 H* Ur Barbiturates Screen Ur Phencyclidine Scrn Ur Amphetamines Screen U Benzodiazepines Scrn Urine Cocaine Screen U Marijuana (THC) Screen Ethyl Alcohol COVID-19 (NICK) Negative COVID-19 Clin Com See Note 07/15/23 07/15/23 07:23 07:40 MCV MCH MCHC RDW Plt Count MPV Immature Gran % (Auto) Neut % (Auto) Lymph % (Auto) [place] % (Auto) Eos % (Auto) Baso % (Auto) Lymph # (Auto) [place] # (Auto) Eos # (Auto) Baso # (Auto) Abs Immat Gran (auto) Absolute Neuts (auto) Absolute Nucleated RBC Nucleated RBC % (auto) Anion Gap Estim Creat Clear Calc Estimated GFR POC Glucose 95 Random Glucose Calcium Total Bilirubin Direct Bilirubin AST ALT Alkaline Phosphatase Total Protein Albumin Urine Color Urine Appearance Urine pH Ur Specific [place] Urine Protein Urine Glucose (UA) Urine Ketones Urine Blood Urine Nitrite Ur Leukocyte Esterase Urine RBC Urine WBC Ur Squamous Epith Cells Urine Bacteria Hyaline Casts Salicylates Urine Opiates Screen Urine Fentanyl Screen Acetaminophen 20 Ur Barbiturates Screen Ur Phencyclidine Scrn Ur Amphetamines Screen U Benzodiazepines Scrn Urine Cocaine Screen U Marijuana (THC) Screen Ethyl Alcohol COVID-19 (NICK) COVID-19 Clin Com Assessment and Plan (1) Acetaminophen overdose: Status: Inactive (2) Suicide attempt: Status: Inactive Plan 47F PMH PTSD, borderline personality disorder, depressive disorder with history of multiple suicide attempts, hyperlipidemia, GERD, [id number] type 2 diabetes admitted for toxic ingestion of acetaminophen with attempt to commit suicide. intentional acetaminophen overdose 2/2 Suicidal ideation, APAP level coming down, given mucomyst and stopped per poison control recommendation. Denying SI at this time. Consult CARE for possible inpatient psych hospitalization. Medically ready for discharge depression, PTSD, borderline personality disorder Continue home meds [id number] type 2 diabetes-without hyperglycemia diabetic diet Humalog on sliding-scale hold metformin GERD continue PPI hyperlipidemia continue statin Chronic normocytic anemia H/H baseline, above transfusion threshold obesity weight loss recommended DVT prophylaxis-Lovenox Full code reason for continued hospitalization:awaiting care team eval Time Spent With Patient Time: Total time managing care of this patient today ____ minutes. Quality Stroke Does the patient have a stroke diagnosis?: No VTE Prior VTE?: No VTE Risk Level:: Medical - moderate - high VTE Device Contraindication: Treatment Not Indicated VTE Drug Contraindication: N/A - Med Ordered
--- NOTE | 2023-07-15 10:17 | PHA.MEDREC ---
Pharmacy Consult ? Medication Reconciliation Pharmacy has completed the medication reconciliation. spoke with patient to confirm medications. She was unable to recognize mirtazapine and fluphenazine. Claim history shows fills from this June. Patient reports that she did not take lithium yesterday.
[2023-07-15 11:19] LABS: Glucose, Whole Blood 100 mg/dL (60-115)
[2023-07-15] MEDS: metFORMIN HCl 500 MG TABLET PO ×2 (11:27→20:34)
[2023-07-15] MEDS: Mirtazapine 7.5 MG TABLET PO (11:27)
[2023-07-15] MEDS: FLUoxetine HCl 20 MG CAPSULE 80 MG PO (11:27)
[2023-07-15] MEDS: lisinopriL 5 MG TABLET PO (11:27)
[2023-07-15] MEDS: Montelukast Sodium 10 MG TABLET PO (11:28)
[2023-07-15] MEDS: Albuterol Sulfate 90 MCG 8 GM INHALER 2 PUFF INHALE (12:17)
[2023-07-15] MEDS: fluPHENAZine HCl 5 MG TABLET PO ×2 (12:19→20:34)
[2023-07-15] MEDS: Benztropine Mesylate 1 MG TABLET PO ×2 (12:26→20:34)
[2023-07-15] MEDS: LORazepam 0.5 MG TABLET PO (15:13)
[2023-07-15 15:14] VITALS: BP 131/88; PULSE 84; RESP 18; TEMP 36.1; O2SAT 98
--- NOTE | 2023-07-15 15:55 | MHC.CM.PN ---
PT REPORTS SHE LIVES IN A [facility] BY [facility] SHE SAYS SHE IS INDEPENDENT [facility] AND USES NO DME PT DECLINES TO COMPLETE A HCP PCP ON FILE VERIFIED DCP: RETURN TO SENIOR [facility]IVING VS IPLOC PT MAY NEED SHUTTLE TRANSPORT
--- NOTE | 2023-07-15 16:02 | PM.DS ---
DS: Providers Provider Date of Service: 07/16/23 Date of admission: 07/14/23 23:37 Primary care physician: Maribel Marquez NP Consults: 07/14/23 20:42 Consult to Care Team Stat Comment: Reason for consultation: SI, intentional tylenol overdose 07/15/23 07:24 Consult to Care Team Routine Comment: Reason for consultation: Usual Suicide and Tylenol Has provider been notified: No DS: Diagnosis Discharge Diagnosis (1) Acetaminophen overdose: Status: Inactive (2) Suicide attempt: Status: Inactive DS: Summary Hospital Course Hospital Course: Chief Complaint: Overdose This is a 47-year-old female past medical history of PTSD, depression, borderline personality disorder, HLD, multiple suicide attempts in the past, comes into the hospital after attempting to commit suicide by ingesting Tylenol. Patient reports she took over 70 pills of Tylenol, she is still suicidal. She denies any chest pain, no abdominal pain nausea no vomiting no diarrhea constipation, no urinary symptoms and no lower extremity edema. On arrival to the ED patient hemodynamically stable no significant abnormal vitals Labs are significant for hemoglobin of 11.7 which is around her baseline, Tylenol level of 123, normal LFTs. Patient started on NAC within control notified, sitter at bedside and will be admitted for further management Hospital course: She presented with intentional Tylenol overdose for suicide attempt. Initial Tylenol level was 123, then went down to 66, then 20. She was initiated on Mucomyst per protocol and following discussion poison control there was no indication for further mucomyst. She is other doing fine and requested to go home, yet following CARE evaluation it is deemed prudent to admit her to inpatient Psych. Discussed with Dr. Reed Time Spent with Patient Time attestation: Total time managing care of this patient today ____ minutes. Discharge coordination time: Greater than 30 minutes Quality: Safe Use of Opioids Does Pt have an Active Cancer Diagnosis on the Problem List?: No Quality: Stroke Does the patient have a stroke diagnosis?: No Physical Exam Vital Signs: Vital Signs: Selected Entries 07/16/23 07:42 Temperature 97.1 F Pulse Rate 90 Respiratory Rate 18 Blood Pressure 120/59 L Pulse Oximetry 95 Oxygen Delivery Me thod Room Air Const: Other: General: AO X 3, no acute distress Resp: CTA bilateral CVS: S1,S2,RRR GI: +BS, NT, no distention Skin: No rash Neuro: motor grossly intact Psych: appropriate affect DS: Data Data Completed and Pending Completed studies during hospitalization [Text1]: Procedures Insertion of Infusion Device into Left Internal Jugular Vein, Percutaneous Approach (02/09/22) Discharge Plan Discharge Anticipated Discharge Date/Time: 07/16/23 09:15 Patient Disposition: Xfer Psychiatric Hosp Discharge Diagnosis: Tylenol overdose, depression with suicide attempt Referrals: Maribel Marquez NP [Primary Care Provider] - 1 Week Discharge Medications: Continued metformin 500 mg tablet 500 mg PO BID pantoprazole 40 mg tablet,delayed release (DR/EC) 40 mg PO DAILY montelukast 10 mg tablet 10 mg PO DAILY lisinopril 5 mg tablet 5 mg PO DAILY mirtazapine 15 mg tablet 7.5 mg PO DAILY fluoxetine 40 mg capsule 80 mg PO QAM atorvastatin 10 mg tablet 10 mg PO DAILY trazodone 150 mg tablet 150 mg PO BEDTIME benztropine 1 mg tablet 1 mg PO BID albuterol sulfate [Ventolin HFA] 90 mcg/actuation HFA aerosol inhaler 2 puff inhalation QID PRN (Reason: Shortness Of Breath Or Wheezing) fluphenazine HCl 5 mg tablet 5 mg PO BID prazosin 2 mg capsule 4 mg PO BEDTIME lorazepam 0.5 mg tablet 0.5 mg PO DAILY PRN (Reason: Anxiety) lithium carbonate 300 mg capsule 300 mg PO DAILY naproxen sodium 220 mg Tablet 220 mg PO BID PRN (Reason: Pain) Discharge Orders: Discharge Order (Routine); Ordered 07/15/23 Ordered By: Jose Echols Diet: Advance to usual diet Activity on Discharge: As tolerated Stand Alone Forms: Patient Portal Discharge page Care Plan Goals: suicide prevention Health Concerns: depression with suicidal thought Plan of Treatment: To inpatient Psychiatric treatment Assessment: as above
[2023-07-15 16:50] LABS: Glucose, Whole Blood 122 mg/dL (60-115)
--- NOTE | 2023-07-15 17:01 | ECG_ITS ---
Test Reason : care team request Blood Pressure : / mmHG Vent. Rate : 076 BPM Atrial Rate : 076 BPM P-R Int : 168 ms QRS Dur : 086 ms QT Int : 398 ms P-R-T Axes : 039 055 058 degrees QTc Int : 447 ms Normal sinus rhythm Septal infarct , age undetermined Abnormal ECG When compared with ECG of 14-JUL-2023 20:28, No significant change was found Referred By: Jose Echols Electronically Signed By:JESU EASTMAN
[2023-07-15 20:00] VITALS: BP 135/93; PULSE 78; RESP 18; TEMP 36.7; O2SAT 97
[2023-07-15 20:29] LABS: Glucose, Whole Blood 122 mg/dL (60-115)
[2023-07-15] MEDS: Prazosin HCL 1 MG CAPSULE 4 MG PO (20:34)
[2023-07-15] MEDS: traZODone HCL 50 MG TABLET 150 MG PO (20:34)
[2023-07-16 04:00] VITALS: BP 135/76; PULSE 74; RESP 18; TEMP 36.1; O2SAT 97
[2023-07-16 07:42] VITALS: BP 120/59; PULSE 90; RESP 18; TEMP 36.2; O2SAT 95
[2023-07-16 07:52] LABS: Glucose, Whole Blood 106 mg/dL (60-115)
[2023-07-16] MEDS: Enoxaparin Sodium 40 MG/0.4 ML SYRINGE SUBCUT (08:41)
[2023-07-16] MEDS: fluPHENAZine HCl 5 MG TABLET PO (08:41)
[2023-07-16] MEDS: Nicotine 14 MG PATCH.TD24 TRANSDERMA (08:41)
[2023-07-16] MEDS: Mirtazapine 7.5 MG TABLET PO (08:41)
[2023-07-16] MEDS: metFORMIN HCl 500 MG TABLET PO (08:41)
[2023-07-16] MEDS: FLUoxetine HCl 20 MG CAPSULE 80 MG PO (08:41)
[2023-07-16] MEDS: Benztropine Mesylate 1 MG TABLET PO (08:41)
[2023-07-16] MEDS: Atorvastatin Calcium 10 MG TABLET PO (08:42)
[2023-07-16] MEDS: Omeprazole 20 MG CAPSULE.DR PO (08:42)
[2023-07-16] MEDS: Lithium Carbonate 300 MG CAPSULE PO (08:42)
[2023-07-16] MEDS: 0.9 % Sodium Chloride Flush 3 ML SYRINGE IVFLUSH (08:42)
[2023-07-16] MEDS: lisinopriL 5 MG TABLET PO (08:42)
[2023-07-16] MEDS: Montelukast Sodium 10 MG TABLET PO (08:55)
[2023-07-16 09:29] LABS: Lithium < 0.10 mmol/L (0.60-1.20)
--- NOTE | 2023-07-16 10:17 | MHC.CM.PN ---
DP: PER MD ROUNDS PT MEDICALLY CLEARED FOR DC. PER CARE TEAM PT HAS A BED ON M5 AND WILL TRANSFER TODAY FOR PSYCH NEEDS.
[2023-07-16 11:28] LABS: Glucose, Whole Blood 91 mg/dL (60-115)
[2023-07-16] MEDS: Albuterol Sulfate 90 MCG 8 GM INHALER 2 PUFF INHALE (12:04)
== END 2023-07-16 12:56 | disposition short-term general hospital (02) | DRG 918 ==
LOC: HO.ED 22:52 → HO.EDOVER 23:50 → HO.S3 07-15 03:33
PROVIDERS: Physician Assistant; Admitting Provider Internal Medicine; Emergency Provider Emergency Medicine; PCP Nurse Practitioner Family; Visit Provider Internal Medicine
DX: T39.1X2A Poisoning by 4-Aminophenol derivatives, intentional self-harm, initial encounter (principal); F60.3 Borderline personality disorder; K21.9 Gastro-esophageal reflux disease without esophagitis; E78.5 Hyperlipidemia, unspecified; D64.9 Anemia, unspecified; E66.9 Obesity, unspecified; F32.A Depression, unspecified; E11.9 Type 2 diabetes mellitus without complications; Z68.38 Body mass index [BMI] 38.0-38.9, adult; F43.10 Post-traumatic stress disorder, unspecified; F17.210 Nicotine dependence, cigarettes, uncomplicated; Z71.6 Tobacco abuse counseling; Z20.822 Contact with and (suspected) exposure to COVID-19; Z79.84 Long term (current) use of oral hypoglycemic drugs; Z79.899 Other long term (current) drug therapy
CPT/HCPCS: 36415; 80048; 80053; 80076; 80143; 80178; 80179; 80307; 81001; 81003; 82947; 85025; 87635; 93005; 99284; 99285; J0132; J1650; S9485

== ENCOUNTER → 2023-07-14 23:37 | Outpatient (BNV) | payer MEDICARE, MEDICAID, SELFPAY | PROVIDERS: Admitting Provider Internal Medicine; Emergency Provider Emergency Medicine; PCP Nurse Practitioner Family; Visit Provider Internal Medicine | DX: T39.1X2A Poisoning by 4-Aminophenol derivatives, intentional self-harm, initial encounter (principal); T14.91XA Suicide attempt, initial encounter | CPT/HCPCS: 99223; 99232; 99239 ==

== ENCOUNTER 2023-07-16 14:35 | Inpatient (IN) | payer MEDICARE, MEDICAID, SELFPAY ==
--- OUTSIDE RECORDS SUMMARY | 2023-07-16 14:39 | XMS_ITS | Continuity of Care Document ---
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 Name Role Phone Maribel Marquez NP Primary Care Physician Encounter [facility] [place] Date(s): 01/28/22 - 01/29/[address] [address]- Encounter Diagnosis Intentional self-harm by sharp object(Final) - 01/29/22 Suicidal ideation(Final) - 01/29/22 Discharge Disposition: A-D/C Home Attending Physician: Jessica Bazan MD Admitting Physician: Jessica Bazan MD Referring Physician: Not on Staff, Referring MD Allergies, Adverse Reactions, Alerts Substance Reaction Severity Status codeine Active penicillin Active predniSONE Active sulfa drugs Active Macrobid Active Zithromax Active Seafood Active Geodon Active Immunizations Given and Recorded Vaccine Date Status Refusal Reason influenza virus vaccine, inactivated 07/12/21 Russel rded influenza virus vaccine, inactivated 07/20/20 Give n influenza virus vaccine, inactivated 09/03/19 Russel rded influenza virus vaccine, inactivated 08/28/18 Russel rded influenza virus vaccine, inactivated 08/07/16 Russel rded influenza virus vaccine, inactivated 09/09/15 Russel rded influenza virus vaccine, inactivated 07/07/13 Give n influenza virus vaccine, inactivated 07/06/13 Russel rded influenza virus vaccine, inactivated 1 09/27/10 Gi benton influenza virus vaccine, inactivated 07/23/09 Russel rded influenza virus vaccine, inactivated 07/17/07 Russel rded influenza virus vaccine, inactivated 07/23/06 Russel rded tetanus/diphtheria/pertussis, acel(Tdap) 04/20/21 Recorded tetanus/diphtheria/pertussis, acel(Tdap) 08/31/20 Given tetanus/diphtheria/pertussis, acel(Tdap) 04/21/19 Recorded tetanus/diphtheria/pertussis, acel(Tdap) 11/06/10 Given tetanus/diphtheria/pertussis, acel(Tdap) 05/17/10 Given tetanus/diphtheria/pertussis, acel(Tdap) 05/18/09 Given tetanus/diphtheria/pertussis, acel(Tdap) 11/08/08 Given tetanus/diphtheria/pertussis, acel(Tdap) 07/19/08 Given tetanus/diphtheria/pertussis, acel(Tdap) 07/17/07 Recorded SARS-CoV-2 (COVID-19) mRNA BNT-162b2 vac 12/01/20 Recorded SARS-CoV-2 (COVID-19) mRNA BNT-162b2 vac 11/10/20 Recorded tetanus-diphtheria toxoids (Td) 05/18/14 Recorded tetanus-diphtheria toxoids (Td) 03/12/98 Recorded tetanus-diphtheria toxoids (Td) 01/13/89 Recorded pneumococcal 23-valent vaccine 12/15/13 Recorded pneumococcal 23-valent vaccine 10/06/10 Given Diphth-Tetanus Toxoids Adsorbed(oldterm) 12/04/08 Given hepatitis B adult vaccine 08/07/91 Recorded hepatitis B adult vaccine 03/07/91 Recorded hepatitis B adult vaccine 02/06/91 Recorded Measles/Mumps/Rubella Virus Vaccine 01/13/90 Recor ded Measles/Mumps/Rubella Virus Vaccine 03/15/79 Recor ded Not Given Vaccine Date Status Refusal Reason influenza virus vaccine, inactivated 08/02/19 Not Given Patient Refuses 1Early/Late Reason: Nursing Judgment Medications atorvastatin 10 mg oral tablet 1 tablet = 10 mg, By Mouth, Daily, # 90 tablet, 0 Refills, Maintenance, 01/04/22 11:12:00 EDT, [facility], Partial fill upon patient request if the prescription is for a schedule II opioid drug., 165, cm, 12/19/21 10:41:00 EST, Height, 103,... Start Date: 01/04/22 Status: Ordered benztropine 1 mg oral tablet 1 mg, 1, tablet, By Mouth, Daily in AM, # 30 tablet, Refills 0, Maintenance, 01/16/22 22:47:00 EDT,Partial fill upon patient request if the prescription is for a schedule II opioid drug. Start Date: 01/16/22 Status: Ordered benztropine 1 mg oral tablet 1 mg, 1, tablet, By Mouth, Daily, PRN, Refills 0, Maintenance, as needed, 07/22/20 18:38:00 EDT Start Date: 07/22/20 Status: Ordered chlorproMAZINE 25 mg oral tablet 3 tablet = 75 mg, By Mouth, Daily, Maintenance, 11/08/21 12:53:00 EST, Tablet, ; Start Date: 11/08/21 Status: Ordered Deblitane 0.35 mg oral tablet 1 tablet = 0.35 mg, By Mouth, Daily, Maintenance, 11/08/21 12:43:00 EST, Tablet, ; Start Date: 11/08/21 Status: Ordered ferrous sulfate 325 mg oral enteric coated tablet 325 mg, 1, tablet, By Mouth, Daily, # 90 tablet, Refills 2, Tot. Refills 2, Maintenance, 04/11/21 9:22:00 EDT, Route to Pharmacy Electronically, [facility], Partial fill upon patient request if the prescription is for a schedule II opioid . Start Date: 04/11/21 Stop Date: 01/06/22 Status: Ordered Flovent HFA 110 mcg/inh inhalation aerosol 2 puffs, Inhalation, 2 times a day, # 12 Gm, 2 Refills, [facility], 165, cm, 12/19/21 10:41:00 EST, Height, 103, kg, 11/26/21 8:59:00 EST, Dry Weight Start Date: 12/27/21 Status: Ordered hydrOXYzine hydrochloride 50 mg oral tablet 1 tablet = 50 mg, By Mouth, Daily, PRN as needed, Maintenance, 11/08/21 12:56:00 EST, ; Start Date: 11/08/21 Status: Ordered lithium 450 mg oral tablet, extended release 1 tablet = 450 mg, By Mouth, 2 times a day, Maintenance, 11/08/21 12:46:00 EST, ER Tablet, ; Start Date: 11/08/21 Status: Ordered melatonin 10 mg oral tablet 1 tablet = 10 mg, By Mouth, Daily at bedtime, PRN as needed for insomnia, for 90 days, # 90 tablet,0 Refills, Acute 04/04/22 12:34:00 EDT, 01/04/22 12:34:00 EDT, Tablet, [facility], Partial fill upon patient request if the prescription is f... Start Date: 01/04/22 Stop Date: 04/04/22 Status: Ordered metFORMIN 500 mg oral tablet 1 each = 500 mg, By Mouth, 2 times a day, # 180 each, 1 Refills, Maintenance, 05/09/21 8:43:00 EDT,Tablet, [facility], Partial fill upon patient request if the prescription is for a schedule II opioid drug., 165, cm, 04/11/21 7:42:00 EDT, H... Start Date: 05/09/21 Stop Date: 11/05/21 Status: Ordered mirtazapine 7.5 mg oral tablet 1 tablet = 7.5 mg, By Mouth, Daily at bedtime, Maintenance, 11/08/21 12:51:00 EST, ; Start Date: 11/08/21 Status: Ordered montelukast 10 mg oral tablet 10 mg, 1, tablet, By Mouth, Daily at bedtime, # 90 tablet, Refills 1, Tot. Refills 1, Maintenance, 01/04/22 11:12:00 EDT, Route to Pharmacy Electronically, [facility], 165, cm, 12/19/21 10:41:00 EST, Height, 103, kg, 11/26/21 8:59:00 EST, Start Date: 01/04/22 Status: Ordered naproxen 500 mg oral tablet 1 tablet = 500 mg, By Mouth, 2 times a day, PRN Pain , Moderate, for 14 days, with food, # 28 tablet, 0 Refills, Acute 02/02/22 14:24:00 EDT, 01/19/22 14:24:00 EDT, Tablet, [facility], Partial fill upon patient request if the prescription is... Start Date: 01/19/22 Stop Date: 02/02/22 Status: Ordered nicotine 21 mg/24 hr transdermal film, extended release 1 patch, Topically, Daily, for 30 days, # 30 patch, 0 Refills, Acute 02/18/22 14:31:00 EDT, 01/19/22 14:31:00 EDT, Patch, [facility], Partial fill upon patient request if the prescription is for a schedule II opioid drug., 1 patch Topically... Start Date: 01/19/22 Stop Date: 02/18/22 Status: Ordered pantoprazole 20 mg oral delayed release tablet 2 tablet = 40 mg, By Mouth, Daily at bedtime, Maintenance, 11/08/21 12:49:00 EST, CR Tablet Start Date: 11/08/21 Status: Ordered prazosin 1 mg oral capsule 4 mg, 4, capsule, By Mouth, Daily at bedtime, # 120 capsule, Refills 5, Tot. Refills 5, Maintenance, 01/19/22 10:48:00 EDT, Route to Pharmacy Electronically, [facility], Partial fill upon patient request if the prescription is for a schedule... Start Date: 01/19/22 Status: Ordered PROzac 40 mg oral capsule 1 capsule = 40 mg, By Mouth, Daily in AM, Maintenance, 11/08/21 12:50:00 EST, Capsule, ; Start Date: 11/08/21 Status: Ordered Thorazine Tablet = 75 mg, By Mouth, Daily in AM, PRN Agitation, 0 Refills, Maintenance, 01/16/22 22:54:00 EDT, Tablet, Partial fill upon patient request if the prescription is for a schedule II opioid drug. Start Date: 01/16/22 Status: Ordered traZODone 100 mg oral tablet 150 mg, 1.5, tablet, By Mouth, Daily, PRN, Maintenance, as needed, 11/08/21 12:54:00 EST, ; Start Date: 11/08/21 Status: Ordered Ventolin HFA 108 mcg/inh inhalation aerosol with adapter 2 puffs = 180 mcg, Inhalation, 4 times a day, PRN for wheezing, # 1 each, 0 Refills, Maintenance, 02/09/20 10:05:00 EDT, Inhaler, [facility], 165, cm, 02/08/20 19:47:00 EDT, Height, 104.5, kg, 02/07/20 8:15:00 EDT, Dry Weight Start Date: 02/09/20 Stop Date: 03/10/20 Status: Ordered verapamil 240 mg/12 hours oral tablet, extended release 1 tablet = 240 mg, By Mouth, Daily at bedtime, # 90 tablet, 1 Refills, Maintenance, 05/09/21 8:45:00 EDT, SR Tablet, [facility], 165, cm, 04/11/21 7:42:00 EDT, Height, 102.6, kg, 02/12/21 12:14:00 EDT, Dry Weight Start Date: 05/09/21 Status: Ordered Problem List Condition Effective Dates Status Health Status Inform ant Asthma(Confirmed) Active Borderline personality disorder(Confirmed) Active Chronic abdominal pain(Confirmed) Active Chronic post-traumatic stres s disorder (PTSD)(Confirmed) Active Depression(Confirmed) Active GERD (gastroesophageal reflu x disease)(Confirmed) Active Hyperlipidemia NOS(Confirmed) Active Hypertension(Confirmed) Active Anemia, iron deficiency(Confirmed) Active Nicotine dependence(Confirmed) Active Obese class II(Confirmed) Active Depression, major, recurrent , severe with psychosis(Confirmed) Active Single major depressive episode(Confirmed) Active Tobacco dependence(Confirmed) Active Type 2 diabetes mellitus(Confirmed) Active Vital Signs Most recent to oldest [Reference Range]: 1 2 3 Oxygen Saturation [94-100 %] 95 % (01/29/22 1:52 AM) 95 % (01/28/22 10:35 PM) 97 % (01/28/22 6:00 PM) Pulse Rate [55-90 bpm] 64 bpm (01/29/22 1:52 AM) 75 bpm (01/28/22 10:35 PM) 80 bpm (01/28/22 6:00 PM) Blood Pressure [90-138/55-84 mm Hg] 140/71mm Hg *H* (01/29/22 1:52 AM) 123/84mm Hg (01/28/22 10:35 PM) 155/96mm Hg *H* (01/28/22 6:00 PM) Respiratory Rate [16-30 br/min] 16 br/min (01/29/22 1:52 AM) 18 br/min (01/28/22 10:35 PM) 18 br/min (01/28/22 6:00 PM) Temperature [96.8-100.4 DegF] 98.6 DegF (01/29/22 1:52 AM) 98.3 DegF (01/28/22 10:35 PM) 98.2 DegF (01/28/22 6:00 PM) Mode of Delivery (Oxygen) Room air (01/29/22 1:52 AM) Room air (01/28/22 10:35 PM) Room air (01/28/22 6:00 PM) Blood pressure sites Arm, left (01/29/22 1:52 AM) Arm, left (01/28/22 10:35 PM) Arm, right (01/28/22 6:00 PM) Temperature Route Oral (01/29/22 1:52 AM) Oral (01/28/22 10:35 PM) Oral (01/28/22 6:00 PM) Social History Social History Type Response Smoking Status 10 or more cigarette s (1/2 pack or more)/day in last 30 days; Type: Cigarettes; Other: Reports smoking 1/2-1 packs/day, ending on level of stress; Started at age: 25; entered on: 12/31/20 Sex
--- OUTSIDE RECORDS SUMMARY | 2023-07-16 14:39 | XMS_ITS | Continuity of Care Document ---
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 Name Role Phone Maribel Marquez NP Primary Care Physician Encounter [facility] Date(s): 02/04/22 - 02/04/[address] [address]- Encounter Diagnosis Acute constipation(Final) - 02/04/22 Discharge Disposition: A-D/C Home Attending Physician: Skylar Carvalho MD Admitting Physician: Skylar Carvalho MD Referring Physician: Not on Staff, Referring [...] tablet, 0 Refills, Maintenance, 01/04/22 11:12:00 EDT, [facility], Partial fill upon patient request if [...] 04/11/21 9:22:00 EDT, Route to Pharmacy Electronically, [facility], Partial fill upon patient request if the prescription is for a schedule II opioid . Start Date: 04/11/21 Stop Date: 01/06/22 Status: Ordered Flovent HFA 110 mcg/inh inhalation aerosol 2 puffs, Inhalation, 2 times a day, # 12 Gm, 2 Refills, [facility], 165, cm, 12/19/21 10:41:00 EST, Height, 103, [...] 04/04/22 12:34:00 EDT, 01/04/22 12:34:00 EDT, Tablet, [facility], Partial fill upon patient request if the prescription is f... Start Date: 01/04/22 Stop Date: 04/04/22 Status: Ordered metFORMIN 500 mg oral tablet See Instructions, TAKE 1 EACH BY MOUTH 2 TIMES A DAY, # 60 tablet, 5 Refills, [facility],165, cm, 01/19/22 13:55:00 EDT, Height, 103, kg, 11/26/21 8:59:00 EST, Dry Weight Start Date: 02/03/22 Status: Ordered MiraLax oral powder for reconstitution = 17 Gm, By Mouth, 2 times a day, Take 2 times a day until regular bowel movements are achieved, after that take 1 times per day to maintain regular bowel movements, # 527 Gm, 0 Refills, Acute 02/11/22 15:00:00 EDT, 02/04/22 15:23:00 EDT, REC Powder,... Start Date: 02/04/22 Stop Date: 02/11/22 Status: Ordered MiraLax oral powder for reconstitution = 17 Gm, By Mouth, 2 times a day, PRN Constipation, dissolve in water before taking, # 255 Gm, 0 Refills, Acute 02/13/22 14:30:00 EDT, 01/30/22 14:10:00 EDT, REC Powder, [facility], Partialfill upon patient request if the prescription is fo... Start Date: 01/30/22 Stop Date: 02/13/22 Status: Ordered mirtazapine 7.5 mg oral tablet 1 tablet = 7.5 mg, By Mouth, Daily at bedtime, Maintenance, 11/08/21 12:51:00 EST, ; Start Date: 11/08/21 Status: Ordered montelukast 10 mg oral tablet 10 mg, 1, tablet, By Mouth, Daily at bedtime, # 90 tablet, Refills 1, Tot. Refills 1, Maintenance, 01/04/22 11:12:00 EDT, Route to Pharmacy Electronically, [facility], 165, cm, 12/19/21 10:41:00 EST, Height, 103, kg, 11/26/21 8:59:00 EST, [facility] Start Date: 01/04/22 Status: Ordered nicotine 21 mg/24 hr transdermal film, extended release 1 patch, Topically, Daily, for 30 days, # 30 patch, 0 Refills, Acute 02/18/22 14:31:00 EDT, 01/19/22 14:31:00 EDT, Patch, [facility], Partial fill upon patient request if the prescription is for a schedule II opioid drug., 1 patch Topically... Start Date: 01/19/22 Stop Date: 02/18/22 Status: Ordered ondansetron 4 mg oral tablet 1 tablet = 4 mg, By Mouth, Every 8 hours, PRN Nausea & Vomiting, # 10 tablet, 0 Refills, Acute 02/08/22 15:00:00 EDT, 02/04/22 15:23:00 EDT, Tablet, [facility], Partial fill upon patient request if the prescription is for a schedule II opioi... Start Date: 02/04/22 Stop Date: 02/08/22 Status: Ordered pantoprazole 40 mg oral delayed release tablet 1 tablet = 40 mg, By Mouth, Daily, Maintenance, 01/30/22 13:58:00 EDT, EC Tablet Start Date: 01/30/22 Status: Ordered prazosin 1 mg oral capsule 4 mg, 4, capsule, By Mouth, Daily at bedtime, # 120 capsule, Refills 5, Tot. Refills 5, Maintenance, 01/19/22 10:48:00 EDT, Route to Pharmacy Electronically, [facility], Partial fill upon patient request if the prescription is for a schedule... Start Date: 01/19/22 Status: Ordered PROzac 40 mg oral capsule 1 capsule = 40 mg, By Mouth, Daily in AM, Maintenance, 11/08/21 12:50:00 EST, Capsule, ; Start Date: 11/08/21 Status: Ordered Thorazine Tablet = 75 mg, By Mouth, Daily, PRN Agitation, 0 Refills, Maintenance, 01/16/22 22:54:00 EDT, Tablet Start Date: 01/16/22 Status: Ordered traZODone 100 mg oral tablet 150 mg, 1.5, tablet, By Mouth, Daily, PRN, Maintenance, as needed, 11/08/21 12:54:00 EST, ; Start Date: 11/08/21 Status: Ordered verapamil 240 mg/12 hours oral tablet, extended release 1 tablet = 240 mg, By Mouth, Daily at bedtime, # 90 tablet, 1 Refills, Maintenance, 05/09/21 8:45:00 EDT, SR Tablet, [facility], 165, cm, 04/11/21 7:42:00 EDT, Height, [...] Most recent to oldest [Reference Range]: 1 Oxygen Saturation [94-100 %] 97 % (02/04/22 1:27 PM) Pulse Rate [55-90 bpm] 89 bpm (02/04/22 1:27 PM) Blood Pressure [90-138/55-84 mm Hg] 148/ 91mm Hg *H* (02/04/22 1:27 PM) Respiratory Rate [16-30 br/min] 16 br/mi n (02/04/22 1:27 PM) Temperature [96.8-100.4 DegF] 97.8 DegF (02/04/22 1:27 PM) Temperature Route Oral (02/04/22 1:27 PM) Social History Social History Type Response Smoking Status 10 or more cigarette s (1/2 pack or more)/day in last 30 days; Type: Cigarettes; Other: Reports smoking 1/2-1 packs/day, ending on level of stress; Started at age: 25; entered on: 12/31/20 Sex
--- OUTSIDE RECORDS SUMMARY | 2023-07-16 14:39 | XMS_ITS | Continuity of Care Document ---
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 [place] Date(s): 01/19/21 - 02/25/21 [facility] [address] [place] [address]- Attending Physician: Not on Staff, Attending MD Allergies, Adverse Reactions, Alerts Substance Reaction Severity Status codeine Active lithium 1 Active penicillin Active predniSONE Active sulfa drugs Active Macrobid Active Seafood Active Geodon Active 1pt reports 01/17/13 started taking lithium about a week ago. Immunizations Given and Recorded Vaccine Date Status Refusal Reason tetanus/diphtheria/pertussis, acel(Tdap) 08/31/20 Given tetanus/diphtheria/pertussis, acel(Tdap) 11/06/10 Given tetanus/diphtheria/pertussis, acel(Tdap) 05/17/10 Given tetanus/diphtheria/pertussis, acel(Tdap) 05/18/09 Given tetanus/diphtheria/pertussis, acel(Tdap) 11/08/08 Given tetanus/diphtheria/pertussis, acel(Tdap) 07/19/08 Given influenza virus vaccine, inactivated 07/20/20 Give n influenza virus vaccine, inactivated 07/07/13 Give n influenza virus vaccine, inactivated 1 09/27/10 Gi benton pneumococcal 23-valent vaccine 10/06/10 Given Diphth-Tetanus Toxoids Adsorbed(oldterm) 12/04/08 Given Not Given Vaccine Date Status Refusal Reason influenza virus vaccine, inactivated 08/02/19 Not Given Patient Refuses 1Early/Late Reason: Nursing Judgment Medications atorvastatin 10 mg oral tablet 1 tablet = 10 mg, By Mouth, Daily at bedtime, # 30 tablet, 0 Refills, Maintenance, 12/23/20 16:38:00 EST, Tablet, [facility], Partial fill upon patient request if the prescription is for a schedule II opioid drug., 162, cm, 12/23/20 15:59:00... Start Date: 12/23/20 Status: Ordered benztropine 1 mg oral tablet 1 mg, 1, tablet, By Mouth, 3 times a day, Refills 0, Maintenance, 07/22/20 18:38:00 EDT Start Date: 07/22/20 Status: Ordered chlorproMAZINE 25 mg oral tablet = 25 mg, By Mouth, Every 8 hours, PRN Agitation Anxiety, # 90 tablet, 0 Refills, Maintenance, 02/09/20 10:08:00 EDT, Tablet, [facility], 165, cm, 02/08/20 19:47:00 EDT, Height, 104.5, kg,02/07/20 8:15:00 EDT, Dry Weight Start Date: 02/09/20 Status: Ordered doxazosin 1 mg oral tablet 3 mg, 3, tablet, By Mouth, Daily at bedtime, # 90 tablet, Refills 0, Tot. Refills 0, Maintenance, 07/22/20 18:41:00 EDT, Route to Pharmacy Electronically, [facility], 163.5, cm, 07/22/20 18:29:00 EDT, Height, 102.5, kg, 07/18/20 21:04:00 EDT... Start Date: 07/22/20 Status: Ordered ferrous sulfate 325 mg oral enteric coated tablet 325 mg, 1, tablet, By Mouth, Daily, # 30 tablet, Refills 0, Tot. Refills 0, Maintenance, 12/23/20 15:38:00 EST, Route to Pharmacy Electronically, [facility], Partial fill upon patient request if the prescription is for a schedule II opioid d... Start Date: 12/23/20 Status: Ordered Flovent HFA 110 mcg/inh inhalation aerosol 2 puffs = 220 mcg, Inhalation, 2 times a day, # 1 each, 0 Refills, Maintenance, 12/23/20 15:38:00 EST, Aerosol, [facility], 162, cm, 12/23/20 10:43:00 EST, Height, 122.1, kg, 12/21/20 16:25:00 EST, Dry Weight Start Date: 12/23/20 Status: Ordered Haldol Decanoate decanoate 100 mg/ml injectable solution = 100 mg, Intramuscular, Every 28 days, last dose given on 09/17/2020. Next due 10/15/20., # 1 each, 0Refills, Soft Stop, 07/22/20 18:42:00 EDT, Solution, [facility], 163.5, cm, 07/22/20 18:29:00 EDT, Height, 102.5, kg, 07/18/20 21:04:00 EDT,... Start Date: 07/22/20 Status: Ordered lisinopril 5 mg oral tablet 5 mg, 1, tablet, By Mouth, Daily, # 30 tablet, Refills 0, Tot. Refills 0, Maintenance, 02/09/20 10:10:00 EDT, Route to Pharmacy Electronically, [facility], 165, cm, 02/08/20 19:47:00 EDT, Height, 104.5, kg, 02/07/20 8:15:00 EDT, Dry Weight Start Date: 02/09/20 Status: Ordered LORazepam 1 mg oral tablet See Instructions, PRN as needed for anxiety, 0.5 tablet By Mouth at 8AM and 2PM as needed, 0 Refills, Maintenance, 09/21/20 18:53:00 EST, Tablet, Partial fill upon patient request if the prescriptionis for a schedule II opioid drug. Start Date: 09/21/20 Status: Ordered LORazepam 1 mg oral tablet 1 tablet = 1 mg, By Mouth, Daily at bedtime, PRN as needed for anxiety, 0 Refills, Maintenance, 07/18/20 19:50:00 EDT, Tablet Start Date: 07/18/20 Status: Ordered metFORMIN 500 mg oral tablet 1 each = 500 mg, By Mouth, 2 times a day, # 60 tablet, 0 Refills, Maintenance, 12/23/20 16:38:00 EST, Tablet, [facility], Partial fill upon patient request if the prescription is for a schedule II opioid drug., 162, cm, 12/23/20 15:59:00 EST... Start Date: 12/23/20 Stop Date: 01/22/21 Status: Ordered montelukast 10 mg oral tablet 10 mg, 1, tablet, By Mouth, Daily, # 30 tablet, Refills 0, Tot. Refills 0, Maintenance, 02/09/20 10:11:00 EDT, Route to Pharmacy Electronically, [facility], 165, cm, 02/08/20 19:47:00 EDT, Height, 104.5, kg, 02/07/20 8:15:00 EDT, Dry Weight Start Date: 02/09/20 Status: Ordered norethindrone 0.35 mg oral tablet 1 tablet = 0.35 mg, By Mouth, Daily, # 30 tablet, 0 Refills, Maintenance, 02/09/20 10:07:00 EDT, Tablet, [facility], 165, cm, 02/08/20 19:47:00 EDT, Height, 104.5, kg, 02/07/20 8:15:00 EDT,Dry Weight Start Date: 02/09/20 Status: Ordered pantoprazole 40 mg oral delayed release tablet 1 tablet = 40 mg, By Mouth, 2 times a day, # 180 tablet, 0 Refills, Maintenance, 01/21/21 11:41:00 EDT, 162, cm, 12/31/20 10:05:00 EDT, Height, 122.1, kg, 12/21/20 16:25:00 EST, Dry Weight Start Date: 01/21/21 Stop Date: 04/21/21 Status: Ordered polyethylene glycol 3350 oral powder for reconstitution = 17 Gm, By Mouth, Daily, dissolve in water before taking, # 527 Gm, 0 Refills, Maintenance, 12/23/20 15:38:00 EST, REC Powder, [facility], Partial fill upon patient request if the prescription is for a schedule II opioid drug., 17 Gm By Ruma... Start Date: 12/23/20 Status: Ordered traZODone 150 mg oral tablet 1 tablet = 150 mg, By Mouth, Daily at bedtime, # 30 tablet, 0 Refills, Maintenance, 12/24/20 8:58:00 EST, Tablet, Partial fill upon patient request if the prescription is for a schedule II opioid drug. Start Date: 12/24/20 Status: Ordered Ventolin HFA 108 mcg/inh inhalation aerosol with adapter 2 puffs = 180 mcg, Inhalation, 4 times a day, PRN for wheezing, # 1 each, 0 Refills, Maintenance, 02/09/20 10:05:00 EDT, Inhaler, [facility], 165, cm, 02/08/20 19:47:00 EDT, Height, 104.5, kg, 02/07/20 8:15:00 EDT, Dry Weight Start Date: 02/09/20 Stop Date: 03/10/20 Status: Ordered verapamil 240 mg/12 hours oral tablet, extended release 1 tablet = 240 mg, By Mouth, Daily at bedtime, # 30 tablet, 0 Refills, Maintenance, 02/09/20 10:14:00 EDT, SR Tablet, [facility], 165, cm, 02/08/20 19:47:00 EDT, Height, 104.5, kg, 208:15:00 EDT, Dry Weight Start Date: 02/09/20 Status: Ordered Problem List Condition Effective Dates Status Health Status Inform ant Asthma(Confirmed) Active Borderline personality disorder(Confirmed) Active Chronic abdominal pain(Confirmed) Active Chronic post-traumatic stres s disorder (PTSD)(Confirmed) Active Depression(Confirmed) Active GERD (gastroesophageal reflu x disease)(Confirmed) Active Hyperlipidemia NOS(Confirmed) Active Hypertension(Confirmed) Active Anemia, iron deficiency(Confirmed) Active Nicotine dependence(Confirmed) Active Depression, major, recurrent , severe with psychosis(Confirmed) Active Single major depressive episode(Confirmed) Active Tobacco dependence(Confirmed) Active Type 2 diabetes mellitus(Confirmed) Active Social History Social History Type Response Smoking Status 10 or more cigarette s (1/2 pack or more)/day in last 30 days; Type: Cigarettes; Other: Reports smoking 1/2-1 packs/day, ending on level of stress; Started at age: 25; entered on: 12/31/20 Sex
--- OUTSIDE RECORDS SUMMARY | 2023-07-16 14:39 | XMS_ITS | Continuity of Care Document ---
Author Name Unknown Organization [facility] Adult Address [address] [place] [address]- Care Team Providers Care Transportation Security Officer Name Role Phone Maribel Marquez NP Primary Care Physician [phone] Encounter [facility] Date(s): 07/28/21 - 09/01/21 [facility] [address] [place] [address]- Attending Physician: Maribel Marquez NP Allergies, Adverse Reactions, Alerts Substance Reaction Severity Status codeine Active lithium 1 Active penicillin Active predniSONE Active sulfa drugs Active Macrobid Active Zithromax Active Seafood Active Geodon Active 1pt reports [...] Mouth, Daily at bedtime, # 90 tablet, 0 Refills, Maintenance, 06/28/21 10:16:00 EDT, Tablet, [facility], Partial fill upon patient request if the prescription is for a schedule II opioid drug., 165, cm, 06/27/21 10:33:00... Start Date: 06/28/21 Status: Ordered benztropine 1 mg oral tablet 1 mg, 1, tablet, By Mouth, 3 times a day, Refills 0, Maintenance, 07/22/20 18:38:00 EDT Start Date: 07/22/20 Status: Ordered chlorproMAZINE 25 mg oral tablet = 25 mg, By Mouth, Every 8 hours, PRN Agitation Anxiety, # 90 tablet, 0 Refills, Maintenance, 02/09/20 10:08:00 EDT, Tablet, [facility], 165, cm, 02/08/20 19:47:00 EDT, Height, 104.5, kg,02/07/20 8:15:00 EDT, Dry Weight Start Date: 02/09/20 Status: Ordered doxazosin 1 mg oral tablet 3 mg, 3, tablet, By Mouth, Daily at bedtime, # 90 tablet, Refills 0, Tot. Refills 0, Maintenance, 07/22/20 18:41:00 EDT, Route to Pharmacy Electronically, [facility], 163.5, cm, 07/22/20 18:29:00 EDT, Height, 102.5, kg, 07/18/20 21:04:00 EDT... Start Date: 07/22/20 Status: Ordered ferrous sulfate 325 mg oral enteric coated tablet 325 mg, 1, tablet, By Mouth, Daily, # 90 tablet, Refills 2, Tot. Refills 2, Maintenance, 04/11/21 9:22:00 EDT, Route to Pharmacy Electronically, [facility], Partial fill upon patient request if the prescription is for a schedule II opioid . Start Date: 04/11/21 Stop Date: 01/06/22 Status: Ordered Flovent HFA 110 mcg/inh inhalation aerosol 2 puffs = 220 mcg, Inhalation, 2 times a day, # 3 each, 3 Refills, Maintenance, 05/09/21 8:41:00 EDT, Aerosol, [facility], 165, cm, 04/11/21 7:42:00 EDT, Height, 102.6, kg, 02/12/21 12:14:00 EDT, Dry Weight Start Date: 05/09/21 Status: Ordered Haldol Decanoate decanoate 100 mg/ml injectable solution = 100 mg, Intramuscular, Every 28 days, last dose given on 09/17/2020. Next due 10/15/20., # 1 each, 0Refills, Soft Stop, 07/22/20 18:42:00 EDT, Solution, [facility], 163.5, cm, 07/22/20 18:29:00 EDT, Height, 102.5, kg, 07/18/20 21:04:00 EDT,... Start Date: 07/22/20 Status: Ordered ibuprofen 600 mg oral tablet 600 mg, 1, tablet, By Mouth, Every 6 hours, PRN, # 120 tablet, Refills 0, Tot. Refills 0, Maintenance, Headache, 08/08/21 7:41:00 EDT, Route to Pharmacy Electronically, [facility], Partial fill upon patient request if the prescription is for... Start Date: 08/08/21 Stop Date: 09/07/21 Status: Ordered lisinopril 5 mg oral tablet 5 mg, 1, tablet, By Mouth, Daily, # 90 tablet, Refills 1, Tot. Refills 1, Maintenance, 05/09/21 8:43:00 EDT, Route to Pharmacy Electronically, [facility], 165, cm, 04/11/21 7:42:00 EDT, Height, 102.6, kg, 02/12/21 12:14:00 EDT, Dry Weight Start Date: 05/09/21 Status: Ordered loratadine 10 mg oral tablet 10 mg, 1, tablet, By Mouth, Daily, # 90 tablet, Refills 3, Tot. Refills 3, Maintenance, 04/11/21 9:38:00 EDT, Route to Pharmacy Electronically, [facility], Partial fill upon patient requestif the prescription is for a schedule II opioid kaela... Start Date: 04/11/21 Stop Date: 04/06/22 Status: Ordered LORazepam 1 mg oral tablet [...] each, 1 Refills, Maintenance, 05/09/21 8:43:00 EDT,Tablet, [facility], Partial fill upon patient request if the prescription is for a schedule II opioid drug., 165, cm, 04/11/21 7:42:00 EDT, H... Start Date: 05/09/21 Stop Date: 11/05/21 Status: Ordered montelukast 10 mg oral tablet 10 mg, 1, tablet, By Mouth, Daily, # 90 tablet, Refills 1, Tot. Refills 1, Maintenance, 05/09/21 8:45:00 EDT, Route to Pharmacy Electronically, [facility], 165, cm, 04/11/21 7:42:00 EDT, Height, 102.6, kg, 02/12/21 12:14:00 EDT, Dry Weight Start Date: 05/09/21 Status: Ordered naltrexone 50 mg oral tablet 0 Refills, Maintenance, 05/04/21 9:26:00 EDT, Partial fill upon patient request if the prescriptionis for a schedule II opioid drug. Start Date: 05/04/21 Status: Ordered pantoprazole 40 mg oral delayed release tablet 1 tablet = 40 mg, By Mouth, 2 times a day, for 90 days, # 180 tablet, 1 Refills, Physician Stop 02/04/22 7:40:00 EDT, 08/08/21 7:40:00 EDT, 165, cm, 08/05/21 14:10:00 EDT, Height, 102.6, kg, 02/13/2112:14:00 EDT, Dry Weight Start Date: 08/08/21 Stop Date: 02/04/22 Status: Ordered polyethylene glycol 3350 oral powder for reconstitution = 17 Gm, By Mouth, Daily, PRN NEEDED FOR CONSTIPATION INSTR, DISSOLVE IN WATER BEFORE TAKING, # 237 Gm, 5 Refills, Acute, 05/10/21 11:59:00 EDT, [facility], 15, TAKE 17 GM BY MOUTH DAILYAS NEEDED FOR CONSTIPATION INSTR:DISSOLVE IN WATER... Start Date: 05/10/21 Status: Ordered traZODone 150 mg oral tablet [...] 0 Refills, Maintenance, 02/09/20 10:05:00 EDT, Inhaler, [facility], 165, cm, 02/08/20 19:47:00 EDT, Height, 104.5, kg, 02/07/20 8:15:00 EDT, Dry Weight Start Date: 02/09/20 Stop Date: 03/10/20 Status: Ordered verapamil 240 mg/12 hours oral tablet, extended release 1 tablet = 240 mg, By Mouth, Daily at bedtime, # 90 tablet, 1 Refills, Maintenance, 05/09/21 8:45:00 EDT, SR Tablet, [facility], 165, cm, 04/11/21 7:42:00 EDT, Height, [...]
--- OUTSIDE RECORDS SUMMARY | 2023-07-16 14:39 | XMS_ITS | Continuity of Care Document ---
Author Name Unknown Organization [facility] ter Address [address] [place] [id number]- Care Team Providers Care Pharmacy Intake Coordinator Name Role Phone Maribel Marquez NP Primary Care Physician Encounter [facility] Date(s): 11/26/21 - 11/26/[address] [address]- Encounter Diagnosis Tremor(Final) - 11/26/21 Discharge Disposition: A-D/C Home Attending Physician: Pia Patetn MD Admitting Physician: Pia Patten MD Referring Physician: Not on Staff, Referring [...] Refuses 1Early/Late Reason: Nursing Judgment Medications atorvastatin 20 mg oral tablet 1 tablet = 20 mg, By Mouth, Daily, Maintenance, 11/08/21 12:45:00 EST, Tablet, ; Start Date: 11/08/21 Status: Ordered benztropine 1 mg oral tablet 1 mg, 1, tablet, By Mouth, Daily, PRN, Refills 0, Maintenance, as needed, 07/22/20 18:38:00 EDT Start Date: 07/22/20 Status: Ordered chlorproMAZINE 25 mg oral tablet 3 tablet = 75 mg, By Mouth, Daily, PRN as needed, Maintenance, 11/08/21 12:53:00 EST, Tablet, ; Start Date: 11/08/21 Status: Ordered chlorproMAZINE 50 mg oral tablet 1 tablet = 50 mg, By Mouth, 4 times a day, Maintenance, 11/08/21 12:54:00 EST, Tablet, ; Start Date: 11/08/21 Status: Ordered clonazePAM 0.5 mg oral tablet 1 tablet = 0.5 mg, By Mouth, Daily, PRN as needed, Maintenance, 11/08/21 12:44:00 EST, ; Start Date: 11/08/21 Status: Ordered cloNIDine 0.1 mg oral tablet 0.1 mg, 1, tablet, By Mouth, 2 times a day, Maintenance, 11/08/21 12:41:00 EST, ; Start Date: 11/08/21 Status: Ordered Deblitane 0.35 mg oral tablet 1 tablet = 0.35 mg, By Mouth, Daily, Maintenance, 11/08/21 12:43:00 EST, Tablet, ; Start Date: 11/08/21 Status: Ordered doxazosin 1 mg oral tablet 3 mg, 3, tablet, By Mouth, Daily at bedtime, # 90 tablet, Refills 0, Tot. Refills 0, Maintenance, 07/22/20 18:41:00 EDT, Route to Pharmacy Electronically, [facility], 163.5, cm, 07/22/20 18:29:00 EDT, Height, 102.5, kg, 07/18/20 21:04:00 EDT... Start Date: 07/22/20 Status: Ordered ferrous sulfate 325 mg oral enteric coated tablet 325 mg, 1, tablet, By Mouth, Daily, # 90 tablet, Refills 2, Tot. Refills 2, Maintenance, 04/11/21 9:22:00 EDT, Route to Pharmacy Electronically, [facility], Partial fill upon patient request if the prescription is for a schedule II opioid . Start Date: 04/11/21 Stop Date: 01/06/22 Status: Ordered Flovent HFA 110 mcg/inh inhalation aerosol 2 puffs = 220 mcg, Inhalation, 2 times a day, # 3 each, 3 Refills, Maintenance, 05/09/21 8:41:00 EDT, Aerosol, [facility], 165, cm, 04/11/21 7:42:00 EDT, Height, 102.6, kg, 02/12/21 12:14:00 EDT, Dry Weight Start Date: 05/09/21 Status: Ordered hydrOXYzine hydrochloride 50 mg oral tablet 1 tablet = 50 mg, By Mouth, Daily, PRN as needed, Maintenance, 11/08/21 12:56:00 EST, ; Start Date: 11/08/21 Status: Ordered ibuprofen 600 mg oral tablet 600 mg, 1, tablet, By Mouth, Daily, PRN, Maintenance, as needed, 11/08/21 12:47:00 EST, ; Start Date: 11/08/21 Status: Ordered lisinopril 5 mg oral tablet 5 mg, 1, tablet, By Mouth, Daily, # 90 tablet, Refills 1, Tot. Refills 1, Maintenance, 05/09/21 8:43:00 EDT, Route to Pharmacy Electronically, [facility], 165, cm, 04/11/21 7:42:00 EDT, Height, 102.6, kg, 02/12/21 12:14:00 EDT, Dry Weight Start Date: 05/09/21 Status: Ordered lithium 450 mg oral tablet, extended release 1 tablet = 450 mg, By Mouth, Daily at bedtime, Maintenance, 11/08/21 12:46:00 EST, ER Tablet, ; Start Date: 11/08/21 Status: Ordered loratadine 10 mg oral tablet 10 mg, 1, tablet, By Mouth, Daily, # 90 tablet, Refills 3, Tot. Refills 3, Maintenance, 04/11/21 9:38:00 EDT, Route to Pharmacy Electronically, [facility], Partial fill upon patient requestif the prescription [...] 1 tablet = 1 mg, By Mouth, 2 times a day, PRN as needed for anxiety, 0 Refills, Maintenance, 07/18/20 19:50:00 EDT, Tablet Start Date: 07/18/20 Status: Ordered metFORMIN 500 mg oral tablet 1 each = 500 mg, By Mouth, 2 times a day, # 180 each, 1 Refills, Maintenance, 05/09/21 8:43:00 EDT,Tablet, [facility], Partial fill upon patient request if the prescription is for a schedule II opioid drug., 165, cm, 04/11/21 7:42:00 EDT, H... Start Date: 05/09/21 Stop Date: 11/05/21 Status: Ordered mirtazapine 7.5 mg oral tablet 1 tablet = 7.5 mg, By Mouth, Daily, PRN as needed, Maintenance, 11/08/21 12:51:00 EST, ; Start Date: 11/08/21 Status: Ordered mirtazapine 7.5 mg oral tablet 1 tablet = 7.5 mg, By Mouth, Daily at bedtime, Maintenance, 11/08/21 12:51:00 EST, ; Start Date: 11/08/21 Status: Ordered montelukast 10 mg oral tablet 10 mg, 1, tablet, By Mouth, Daily, # 90 tablet, Refills 1, Tot. Refills 1, Maintenance, 05/09/21 8:45:00 EDT, Route to Pharmacy Electronically, [facility], 165, cm, 04/11/21 7:42:00 EDT, Height, 102.6, kg, 02/12/21 12:14:00 EDT, Dry Weight Start Date: 05/09/21 Status: Ordered naltrexone 50 mg oral tablet 0 Refills, Maintenance, 05/04/21 9:26:00 EDT, Partial fill upon patient request if the prescriptionis for a schedule II opioid drug. Start Date: 05/04/21 Status: Ordered nicotine 21 mg/24 hr transdermal film, extended release 1 patch, Topically, Daily, Maintenance, 11/08/21 12:48:00 EST, Patch, ; Start Date: 11/08/21 Status: Ordered nystatin topical 178589 u/gm cream 1 application, Topically, 2 times a day, Maintenance, 11/08/21 12:48:00 EST, Cream, ; Start Date: 11/08/21 Status: Ordered pantoprazole 20 mg oral delayed release tablet 1 tablet = 20 mg, By Mouth, 2 times a day, Maintenance, 11/08/21 12:49:00 EST, CR Tablet Start Date: 11/08/21 Status: Ordered polyethylene glycol 3350 oral powder for reconstitution = 17 Gm, By Mouth, Daily, PRN NEEDED FOR CONSTIPATION INSTR, DISSOLVE IN WATER BEFORE TAKING, # 237 Gm, 5 Refills, Acute, 05/10/21 11:59:00 EDT, [facility], 15, TAKE 17 GM BY MOUTH DAILYAS NEEDED FOR CONSTIPATION INSTR:DISSOLVE IN WATER... Start Date: 05/10/21 Status: Ordered prazosin 2 mg oral capsule 2 capsule = 4 mg, By Mouth, Daily at bedtime, 0 Refills, Maintenance, 11/08/21 12:49:00 EST, ; Start Date: 11/08/21 Status: Ordered PROzac 40 mg oral capsule 1 capsule = 40 mg, By Mouth, Daily in AM, Maintenance, 11/08/21 12:50:00 EST, Capsule, ; Start Date: 11/08/21 Status: Ordered traZODone 100 mg oral tablet 100 mg, 1, tablet, By Mouth, Daily, PRN, Maintenance, as needed, 11/08/21 12:54:00 EST, ; Start Date: 11/08/21 Status: Ordered Ventolin HFA 108 mcg/inh inhalation aerosol with adapter 2 puffs = 180 mcg, Inhalation, 4 times a day, PRN for wheezing, # 1 each, 0 Refills, Maintenance, 02/09/20 10:05:00 EDT, Inhaler, [facility], 165, cm, 02/08/20 19:47:00 EDT, Height, 104.5, kg, 02/07/20 8:15:00 EDT, Dry Weight Start Date: 02/09/20 Stop Date: 03/10/20 Status: Ordered verapamil 240 mg/12 hours oral tablet, extended release 1 tablet = 240 mg, By Mouth, Daily at bedtime, # 90 tablet, 1 Refills, Maintenance, 05/09/21 8:45:00 EDT, SR Tablet, [facility], 165, cm, 04/11/21 7:42:00 EDT, Height, 102.6, [...] to oldest [Reference Range]: 1 2 3 Height 165 cm (11/26/21 9:00 AM) Weight 103 kg (11/26/21 9:00 AM) Oxygen Saturation [94-100 %] 99 % (11/26/21 12:00 PM) 98 % (11/26/21 10:00 AM) 99 % (11/26/21 9:00 AM) Pulse Rate [55-90 bpm] 80 bpm (11/26/21 12:00 PM) 82 bpm (11/26/21 10:00 AM) 94 bpm *H* (11/26/21 9:00 AM) Blood Pressure [90-138/55-84 mm Hg] 138/85mm Hg (11/26/21 12:00 PM) 135/74mm Hg (11/26/21 10:00 AM) 154/90mm Hg *H* (11/26/21 9:00 AM) Respiratory Rate [16-30 br/min] 20 br/min (11/26/21 12:00 PM) 17 br/min (11/26/21 10:00 AM) 14 br/min *L* (11/26/21 9:00 AM) Temperature [96.8-100.4 DegF] 98 DegF (11/26/21 9:00 AM) Mode of Delivery (Oxygen) Room air (11/26/21 12:00 PM) Room air (11/26/21 10:00 AM) Room air (11/26/21 9:00 AM) Temperature Route Oral (11/26/21 9:00 AM) Dry Weight 103 kg (11/26/21 9:00 AM) Social History Social History Type Response Smoking Status 10 or more cigarette s (1/2 pack or more)/day in last 30 days; Type: Cigarettes; Other: Reports smoking 1/2-1 packs/day, ending on level of stress; Started at age: 25; entered on: 12/31/20 Sex
--- OUTSIDE RECORDS SUMMARY | 2023-07-16 14:39 | XMS_ITS | Continuity of Care Document ---
Author Name Unknown Organization [facility] Adult Address [address] [place] [address]- Care Team Providers Care Us Administrative Law Judge Name Role Phone Maribel Marquez NP Primary Care Physician Encounter [facility] Date(s): 02/17/22 - 03/19/22 [facility] [address] [place] [address]- Allergies, Adverse Reactions, Alerts Substance Reaction Severity [...] tablet, 0 Refills, Maintenance, 01/04/22 11:12:00 EDT, [facility], Partial fill upon patient request if [...] 04/11/21 9:22:00 EDT, Route to Pharmacy Electronically, [facility], Partial fill upon patient request if the prescription is for a schedule II opioid . Start Date: 04/11/21 Stop Date: 01/06/22 Status: Ordered Flovent HFA 110 mcg/inh inhalation aerosol 2 puffs, Inhalation, 2 times a day, # 12 Gm, 2 Refills, [facility], 165, cm, 12/19/21 10:41:00 EST, Height, 103, kg, 11/26/21 8:59:00 EST, Dry Weight Start Date: 12/27/21 Status: Ordered hydrOXYzine hydrochloride 50 mg oral tablet 1 tablet = 50 mg, By Mouth, Daily, PRN as needed, Maintenance, 11/08/21 12:56:00 EST, ; Start Date: 11/08/21 Status: Ordered lisinopril 5 mg oral tablet 5 mg, 1, tablet, By Mouth, Daily, # 30 tablet, Refills 0, Maintenance, 03/03/22 4:21:00 EDT, Partial fill upon patient request if the prescription is for a schedule II opioid drug. Start Date: 03/03/22 Status: Ordered lithium 450 mg oral tablet, [...] 04/04/22 12:34:00 EDT, 01/04/22 12:34:00 EDT, Tablet, [facility], Partial fill upon patient request if the prescription is f... Start Date: 01/04/22 Stop Date: 04/04/22 Status: Ordered metFORMIN 500 mg oral tablet See Instructions, TAKE 1 EACH BY MOUTH 2 TIMES A DAY, # 60 tablet, 5 Refills, [facility],165, cm, 01/19/22 13:55:00 EDT, Height, 103, kg, 11/26/21 8:59:00 EST, Dry Weight Start Date: 02/03/22 Status: Ordered mirtazapine 7.5 mg oral tablet 1 tablet = 7.5 mg, By Mouth, Daily at bedtime, Maintenance, 11/08/21 12:51:00 EST, ; Start Date: 11/08/21 Status: Ordered montelukast 10 mg oral tablet 10 mg, 1, tablet, By Mouth, Daily at bedtime, # 90 tablet, Refills 1, Tot. Refills 1, Maintenance, 01/04/22 11:12:00 EDT, Route to Pharmacy Electronically, [facility], 165, cm, 12/19/21 10:41:00 EST, Height, 103, kg, 11/26/21 8:59:00 EST, Dr... Start Date: 01/04/22 Status: Ordered pantoprazole 40 mg oral delayed release tablet 1 tablet = 40 mg, By Mouth, Daily, Maintenance, 01/30/22 13:58:00 EDT, EC Tablet Start Date: 01/30/22 Status: Ordered prazosin 1 mg oral capsule 4 mg, 4, capsule, By Mouth, Daily at bedtime, # 120 capsule, Refills 5, Tot. Refills 5, Maintenance, 01/19/22 10:48:00 EDT, [facility], [facility] [...] Refills, Maintenance, 05/09/21 8:45:00 EDT, SR Tablet, [facility], 165, cm, 04/11/21 7:42:00 EDT, Height, [...]
--- OUTSIDE RECORDS SUMMARY | 2023-07-16 14:40 | XMS_ITS | Continuity of Care Document ---
Author Name Unknown Organization [facility] ter Address [address] [place] [id number]- Care Team Providers Care Sheet Rock Installation Helper Name Role Phone Maribel Marquez NP Primary Care Physician [phone] Encounter [facility] [place] Date(s): 09/01/22 - 09/01/[address] [address]- Encounter Diagnosis Hallucination(Final) - 09/01/22 Discharge Disposition: A-D/C Home Attending Physician: Swapna Amaro DO Admitting Physician: Swapna Amaro DO Referring Physician: Not on Staff, Referring MD Allergies, Adverse Reactions, Alerts Substance Reaction Severity Status codeine Active lithium 1 Active penicillin Active predniSONE Active sulfa drugs Active Macrobid Active Zithromax Active Seafood Active Geodon Active 1pt reports 01/17/13 started taking lithium about a week ago. Immunizations Given and Recorded Vaccine Date Status Refusal Reason tetanus/diphtheria/pertussis, acel(Tdap) 05/29/22 Given tetanus/diphtheria/pertussis, acel(Tdap) 04/20/21 Recorded tetanus/diphtheria/pertussis, acel(Tdap) 08/31/20 Given tetanus/diphtheria/pertussis, acel(Tdap) 04/21/19 Recorded tetanus/diphtheria/pertussis, acel(Tdap) 11/06/10 Given tetanus/diphtheria/pertussis, acel(Tdap) 05/17/10 Given tetanus/diphtheria/pertussis, acel(Tdap) 05/18/09 Given tetanus/diphtheria/pertussis, acel(Tdap) 11/08/08 Given tetanus/diphtheria/pertussis, acel(Tdap) 07/19/08 Given tetanus/diphtheria/pertussis, acel(Tdap) 07/17/07 Recorded influenza virus vaccine, inactivated 07/12/21 Russel rded [...] influenza virus vaccine, inactivated 07/23/06 Russel rded SARS-CoV-2 (COVID-19) mRNA BNT-162b2 vac 12/01/20 Recorded [...] Medications atorvastatin 10 mg oral tablet 1 tablet, By Mouth, Daily, # 90 tablet, 1 Refills, Maintenance, 07/24/22 15:17:00 EDT, [facility], 165.2, cm, 07/19/22 10:30:00 EDT, Height, 96, kg, 07/16/22 20:57:00 EDT, Dry Weight Start Date: 07/24/22 Status: Ordered benztropine 1 mg oral tablet 1 mg, 1, tablet, By Mouth, Daily in AM, # 30 tablet, Refills 0, Maintenance, 01/16/22 22:47:00 EDT,Partial fill upon patient request if the prescription is for a schedule II opioid drug. Start Date: 01/16/22 Status: Ordered chlorproMAZINE 25 mg oral tablet [...] 04/11/21 9:22:00 EDT, Route to Pharmacy Electronically, [facility], Partial fill upon patient request if the prescription is for a schedule II opioid . Start Date: 04/11/21 Stop Date: 01/06/22 Status: Ordered Flovent HFA 110 mcg/inh inhalation aerosol 2 puffs, Inhalation, 2 times a day, # 12 Gm, 1 Refills, [facility], 162, cm, 03/20/22 19:50:00 EDT, Height, 105, kg, 03/20/22 19:50:00 EDT, Dry Weight Start Date: 04/21/22 Status: Ordered fluPHENAZine 5 mg oral tablet 5 mg, 1, tablet, By Mouth, Daily, # 30 tablet, Refills 0, Maintenance, 04/07/22 20:57:00 EDT, Partial fill upon patient request if the prescription is for a schedule II opioid drug. Start Date: 04/07/22 Status: Ordered hydrOXYzine hydrochloride 50 mg oral tablet 1 tablet = 50 mg, By Mouth, Daily, PRN as needed, Maintenance, 11/08/21 12:56:00 EST, ; Start Date: 11/08/21 Status: Ordered lisinopril 5 mg oral tablet 5 mg, 1, tablet, By Mouth, Daily, # 90 tablet, Refills 2, Tot. Refills 2, Maintenance, 07/21/22 14:07:00 EDT, Route to Pharmacy Electronically, [facility], Partial fill upon patient requestif the prescription is for a schedule II opioid .. Start Date: 07/21/22 Stop Date: 04/17/23 Status: Ordered metFORMIN 500 mg oral tablet See Instructions, TAKE 1 EACH BY MOUTH 2 TIMES A DAY, # 60 tablet, 5 Refills, 08/07/22 10:55:00 EDT, [facility], 165.2, cm, 07/19/22 10:30:00 EDT, Height, 96, kg, 07/16/22 20:57:00 EDT, DryWeight Start Date: 08/07/22 Status: Ordered mirtazapine 7.5 mg oral tablet 1 tablet = 7.5 mg, By Mouth, Daily at bedtime, Maintenance, 11/08/21 12:51:00 EST, ; Start Date: 11/08/21 Status: Ordered montelukast 10 mg oral tablet 10 mg, 1, tablet, By Mouth, Daily at bedtime, # 90 tablet, Refills 1, Tot. Refills 1, Maintenance, 01/04/22 11:12:00 EDT, Route to Pharmacy Electronically, [facility], 165, cm, 12/19/21 10:41:00 EST, Height, 103, kg, 11/26/21 8:59:00 EST, . Start Date: 01/04/22 Status: Ordered pantoprazole 40 mg oral delayed release tablet 1 tablet = 40 mg, By Mouth, Daily, # 90 tablet, 0 Refills, Maintenance, 06/23/22 16:16:00 EDT, [facility], 163, cm, 06/23/22 15:10:00 EDT, Height, 95, kg, 05/28/22 20:02:00 EDT, Dry Weight Start Date: 06/23/22 Stop Date: 09/21/22 Status: Ordered prazosin 1 mg oral capsule 4 mg, 4, capsule, By Mouth, Daily at bedtime, # 120 capsule, Refills 5, Tot. Refills 5, Maintenance, 01/19/22 10:48:00 EDT, Route to Pharmacy Electronically, [facility], Partial fill upon patient request if the prescription is for a schedule... Start Date: 01/19/22 Status: Ordered ProAir HFA 90 mcg/inh inhalation aerosol 2 puffs, Inhalation, 4 times a day, PRN as needed for wheezing, # 6.7 Gm, 1 Refills, Maintenance, 06/23/22 16:17:00 EDT, Aerosol, [facility], Partial fill upon patient request if the prescription is for a schedule II opioid drug., 2 puffs In... Start Date: 06/23/22 Stop Date: 07/07/22 Status: Ordered PROzac 40 mg oral capsule 1 capsule = 40 mg, By Mouth, Daily in AM, Maintenance, 11/08/21 12:50:00 EST, Capsule, ; Start Date: 11/08/21 Status: Ordered Senna 8.6 mg oral tablet 2, tablet, By Mouth, Daily at bedtime, PRN, # 60 tablet, Refills 3, Maintenance, NEEDED FOR CONSTIPATION, 07/28/22 7:45:00 EDT, Route to Pharmacy Electronically, [facility], 165.2, cm, 07/19/22 10:30:00 EDT, Height, 96, kg, 07/16/22 20:57... Start Date: 07/28/22 Status: Ordered traZODone 100 mg oral tablet 150 mg, 1.5, tablet, By Mouth, Daily, PRN, Maintenance, as needed, 11/08/21 12:54:00 EST, ; Start Date: 11/08/21 Status: Ordered verapamil 240 mg/12 hours oral tablet, extended release 1 tablet = 240 mg, By Mouth, Daily at bedtime, # 90 tablet, 1 Refills, Maintenance, 05/09/21 8:45:00 EDT, SR Tablet, [facility], 165, cm, 04/11/21 7:42:00 EDT, Height, 102.6, kg, 02/12/21 12:14:00 EDT, Dry Weight Start Date: 05/09/21 Status: Ordered Problem List Condition Confirmation Course Effective Dates Status H ealth Status Informant Asthma Confirmed Active Borderline personality disorder Confirmed Active Chronic abdominal pain Confirmed Active Chronic post-traumatic stress disorder (PTSD) Confirmed Active COVID-19 1 Confirmed 03/20/22 Active Depression Confirmed Active GERD (gastroesophageal reflux disease) Confirmed Active Hyperlipidemia NOS Confirmed Active Hypertension Confirmed Active Anemia, iron deficiency Confirmed Active Nicotine dependence Confirmed Active Obese class II Confirmed Active Depression, major, recurrent, severe with psychosis Confirmed Active Single major depressive episode Confirmed Active Tobacco dependence Confirmed Active Type 2 diabetes mellitus Confirmed Active 1Problem added by Discern Expert Vital Signs Most recent to oldest [Reference Range]: 1 2 Oxygen Saturation [94-100 %] 100 % (09/01/22 6:50 PM) 98 % (09/01/22 4:52 PM) Pulse Rate [55-90 bpm] 98 bpm *H* (09/01/22 6:50 PM) 81 bpm (09/01/22 4:52 PM) Blood Pressure [90-138/55-84 mm Hg] 122/ 84mm Hg (09/01/22 6:50 PM) 128/86mm Hg (09/01/22 4:52 PM) Respiratory Rate [16-30 br/min] 16 br/mi n (09/01/22 6:50 PM) 16 br/min (09/01/22 4:52 PM) Temperature [96.8-100.4 DegF] 98 DegF (09/01/22 6:50 PM) 98.2 DegF (09/01/22 4:52 PM) Mode of Delivery (Oxygen) Room air (09/01/22 6:50 PM) Room air (09/01/22 4:52 PM) Temperature Route Oral (09/01/22 6:50 PM) Oral (09/01/22 4:52 PM) Social History Social History Type Response Smoking Status 10 or more cigarette s (1/2 pack or more)/day in last 30 days; Other: 1PPD; entered on: 07/19/22 Sex Patient Care team information Care Team Personnel Name: Rudi Ruiz RN Position: [facility] ED RN W/OE and Tasks Member Role: Primary Care Nurse Name: Alicja Riggs RN Position: [facility] RN Member Role: Primary Care Nurse Name: Ros Fu RN Position: [facility] RN Member Role: Primary Care Nurse Name: Hilda Mccabe RN Position: [facility] RN Member Role: Primary Care Nurse Name: Rosana Kearney RN Position: [facility] AMB Nurse Member Role: Primary Care Nurse Name: Wil Flood RN Position: [facility] RN Member Role: Primary Care Nurse Name: Gagandeep Sheldon RN Position: [facility] RN Member Role: Primary Care Nurse Name: Chip Morton Position: [facility] Outreach Member Role: Lifetime Consulting Physician Name: Alba Daily RN Position: [facility] RN Member Role: Primary Care Nurse Name: Maribel Marquez NP Position: [facility] PCO Associate Professional Member Role: PCP Address: Address: [address] [place] [id number]- Name: Jose Ramirez RN Position: [facility] RN Member Role: Primary Care Nurse Name: Brittany Butts RN Position: [facility] AMB Nurse Member Role: Primary Care Nurse Name: Mary Sánchez RN Position: [facility] RN Member Role: Primary Care Nurse Name: Shama Rosado RN Position: [facility] RN Member Role: Primary Care Nurse Name: Jackie Snyder RN Position: [facility] RN Member Role: Primary Care Nurse Name: Jay Burks NP Position: Reference Physician Member Role: Primary Care Nurse Address: Address: [address] [place] [address] Clinical & [place] [address]- Name: Parvez Kaba MD Position: [facility] Renal MD Member Role: Lifetime Consulting Physician Address: Address: [address] [place] [address] [facility] [address]- Name: Yoana Ledezma RN Position: [facility] RN Member Role: Primary Care Nurse Name: Mirna Paul RN Position: [facility] OB RN Member Role: Primary Care Nurse Name: Latonya Rahman RN Position: [facility] Onco RN Member Role: Primary Care Nurse Name: Claudia Presley RN Position: [facility] RN Member Role: Primary Care Nurse Name: Iris Villa RN Position: [facility] Hospital Director Money Member Role: Primary Care Nurse Name: Raisa Wellington DO Position: [facility] Resident Member Role: ED Resident Address: Address: [address] [place] [address]- Name: Julio Sorenson Position: [facility] ED RN W/OE and Tasks Member Role: Patient Care Provider Name: Swapna Amaro DO Position: [facility] ED Medicine MD Member Role: Admitting Physician Address: Address: [address] [place] [id number]- Care Team Related Persons Name: JO-ANN ROMANSPRAY RIG OPERATORINDRA Address: [address] [place] [address] Name: AQUATIC INSTRUCTORGREGG Address: [address] [place] [address] Name: CARLOS PAZ Address: home [address] [place] [address]
--- OUTSIDE RECORDS SUMMARY | 2023-07-16 14:40 | XMS_ITS | Continuity of Care Document ---
Author Name Unknown Organization [facility] Adult Address [address] [place] [address]- Care Team Providers Care Manager Renewable Energy Name Role Phone Maribel Marquez NP Primary Care Physician [phone] [place] [facility] [place]s): 08/30/22 - 09/29/22 [facility] Adult [address] [place] [id number] Attending Physician: Jessica Kitchen Admitting Physician: Jessica Kitchen Referring Physician: AdmtrJessica Allergies, Adverse Reactions, Alerts Substance Reaction Severity [...] tablet, 1 Refills, Maintenance, 07/24/22 15:17:00 EDT, [facility], 165.2, cm, 07/19/22 10:30:00 EDT, Height, [...] prescription is for a schedule II opioid dr... Start Date: 04/11/21 Stop Date: 01/06/22 Status: Ordered Flovent HFA 110 mcg/inh inhalation aerosol 2 puffs, Inhalation, 2 times a day, # 12 Gm, 1 Refills, [facility], 162, cm, 03/20/22 19:50:00 EDT, Height, [...] 07/21/22 14:07:00 EDT, Route to Pharmacy Electronically, [facility], Partial fill upon patient requestif the prescription is for a schedule II opioid kaela... Start Date: 07/21/22 Stop Date: 04/17/23 Status: Ordered metFORMIN 500 mg oral tablet See Instructions, TAKE 1 EACH BY MOUTH 2 TIMES A DAY, # 60 tablet, 5 Refills, 08/07/22 10:55:00 EDT, [facility], 165.2, cm, 07/19/22 10:30:00 EDT, Height, [...] 01/04/22 11:12:00 EDT, Route to Pharmacy Electronically, [facility], 165, cm, 12/19/21 10:41:00 EST, Height, 103, kg, 11/26/21 8:59:00 EST, .. Start Date: 01/04/22 Status: Ordered pantoprazole 40 [...] 01/19/22 10:48:00 EDT, Route to Pharmacy Electronically, [facility], Partial fill upon patient request if the prescription is for a schedule... Start Date: 01/19/22 Status: Ordered ProAir HFA 90 mcg/inh inhalation aerosol 2 puffs, Inhalation, 4 times a day, PRN as needed for wheezing, # 6.7 Gm, 1 Refills, Maintenance, 06/23/22 16:17:00 EDT, Aerosol, [facility], Partial fill upon patient request if [...] 07/28/22 7:45:00 EDT, Route to Pharmacy Electronically, [facility], 165.2, cm, 07/19/22 10:30:00 EDT, Height, [...] Refills, Maintenance, 05/09/21 8:45:00 EDT, SR Tablet, [facility], 165, cm, 04/11/21 7:42:00 EDT, Height, [...] Confirmed Active 1Problem added by Discern Expert Social History Social History Type Response Smoking Status 10 or more cigarette s (1/2 pack or more)/day in last 30 days; Other: 1PPD; entered on: 07/19/22 Sex Hospital Consult note * Event Display: Inpatient Consult Note, Non- Authored Date: * Event Display: Inpatient Consult Note, Non- Authored Date: * Event Display: Inpatient Consult Note, Non- Authored Date: Note * Event Display: MM Mammogram Authored Date: Patient Care team information Care Team Personnel Name: Rudi Ruiz RN Position: [facility] ED RN W/OE and Tasks Member Role: Primary Care Nurse Name: Alicja Riggs RN Position: [facility] RN Member Role: Primary Care Nurse Name: Ros Fu RN Position: [facility] RN Member Role: Primary Care Nurse Name: Hilda Mccabe RN Position: [facility] RN Member Role: Primary Care Nurse Name: Rosana Kearney RN Position: [facility] AMB Nurse Member Role: Primary Care Nurse Name: Wil Flood RN Position: [facility] RN Member Role: Primary Care Nurse Name: Gagandeep Sheldon RN Position: [facility] RN Member Role: Primary Care Nurse Name: Chip Morton Position: [facility] Outreach Member Role: Lifetime Consulting Physician Name: Alba Daily RN Position: [facility] RN Member Role: Primary Care Nurse Name: Maribel Marquez NP Position: [facility] PCO Associate Professional Member Role: PCP Address: Address: [address] [place] [id number]- Name: Jose Ramirez RN Position: [facility] RN Member Role: Primary Care Nurse Name: Brittany Butts RN Position: [facility] AMB Nurse Member Role: Primary Care Nurse Name: Mary Sánchez RN Position: [facility] RN Member Role: Primary Care Nurse Name: Shama Rosado RN Position: [facility] RN Member Role: Primary Care Nurse Name: Jackie Snyder RN Position: [facility] RN Member Role: Primary Care Nurse Name: Jay Burks NP Position: Reference Physician Member Role: Primary Care Nurse Address: Address: [address] [place], [place] [id number] Clinical & [place] [address]- [place] Name: Parvez Kaba MD Position: [facility] Renal MD Member Role: Lifetime Consulting Physician Address: Address: [address] [place] [address] [facility] [place], [place] [address] Name: Yoana Ledezma RN Position: [facility] RN Member Role: Primary Care Nurse Name: Mirna Paul RN Position: [facility] OB RN Member Role: Primary Care Nurse Name: Latonya Rahman RN Position: [facility] Onco RN Member Role: Primary Care Nurse Name: Claudia Presley RN Position: [facility] RN Member Role: Primary Care Nurse Name: Iris Villa RN Position: [facility] Hospital Admitting Counselor Member Role: Primary Care Nurse Care Team Related Persons Name: LISBETH- BEAUTY CULTURISTINDRA Address: [address] [place] [address] Name: COMMUNICATIONS PROFESSIONALGREGG Address: [address] [place] [address] Name: CARLOS PAZ Address: home [address] [place] [id number]
--- OUTSIDE RECORDS SUMMARY | 2023-07-16 14:40 | XMS_ITS | Continuity of Care Document ---
Author Name Unknown Organization [facility] Adult Address [address] [place] [address]- Care Team Providers Care Cephalometric Analyst Name Role Phone Maribel Marquez NP Primary Care Physician [place] [facility] [place]/26/[place] - 02/25/[address] [facility] [address] [place] [address]- Attending Physician: Jessica Kitchen Admitting Physician: AdmJessica powers Referring Physician: AdmtrJessica Allergies, Adverse Reactions, Alerts [...] 0 Refills, Maintenance, 12/23/20 16:38:00 EST, Tablet, [facility], Partial fill upon patient request if [...] 0 Refills, Maintenance, 02/09/20 10:08:00 EDT, Tablet, [facility], 165, cm, 02/08/20 19:47:00 EDT, Height, 104.5, kg,02/07/20 8:15:00 EDT, Dry Weight Start Date: 02/09/20 Status: Ordered doxazosin 1 mg oral tablet 3 mg, 3, tablet, By Mouth, Daily at bedtime, # 90 tablet, Refills 0, Tot. Refills 0, Maintenance, 07/22/20 18:41:00 EDT, Route to Pharmacy Electronically, [facility], 163.5, cm, 07/22/20 18:29:00 EDT, Height, 102.5, kg, 07/18/20 21:04:00 EDT... Start Date: 07/22/20 Status: Ordered ferrous sulfate 325 mg oral enteric coated tablet 325 mg, 1, tablet, By Mouth, Daily, # 30 tablet, Refills 0, Tot. Refills 0, Maintenance, 12/23/20 15:38:00 EST, Route to Pharmacy Electronically, [facility], Partial fill upon patient request if the prescription is for a schedule II opioid d... Start Date: 12/23/20 Status: Ordered Flovent HFA 110 mcg/inh inhalation aerosol 2 puffs = 220 mcg, Inhalation, 2 times a day, # 1 each, 0 Refills, Maintenance, 12/23/20 15:38:00 EST, Aerosol, [facility], 162, cm, 12/23/20 10:43:00 EST, Height, 122.1, kg, 12/21/20 16:25:00 EST, Dry Weight Start Date: 12/23/20 Status: Ordered Haldol Decanoate decanoate 100 mg/ml injectable solution = 100 mg, Intramuscular, Every 28 days, last dose given on 09/17/2020. Next due 10/15/20., # 1 each, 0Refills, Soft Stop, 07/22/20 18:42:00 EDT, Solution, [facility], 163.5, cm, 07/22/20 18:29:00 EDT, Height, 102.5, kg, 07/18/20 21:04:00 EDT,... Start Date: 07/22/20 Status: Ordered lisinopril 5 mg oral tablet 5 mg, 1, tablet, By Mouth, Daily, # 30 tablet, Refills 0, Tot. Refills 0, Maintenance, 02/09/20 10:10:00 EDT, Route to Pharmacy Electronically, [facility], 165, cm, 02/08/20 19:47:00 EDT, Height, [...] 0 Refills, Maintenance, 12/23/20 16:38:00 EST, Tablet, [facility], Partial fill upon patient request if the prescription is for a schedule II opioid drug., 162, cm, 12/23/20 15:59:00 EST... Start Date: 12/23/20 Stop Date: 01/22/21 Status: Ordered montelukast 10 mg oral tablet 10 mg, 1, tablet, By Mouth, Daily, # 30 tablet, Refills 0, Tot. Refills 0, Maintenance, 02/09/20 10:11:00 EDT, Route to Pharmacy Electronically, [facility], 165, cm, 02/08/20 19:47:00 EDT, Height, 104.5, kg, 02/07/20 8:15:00 EDT, Dry Weight Start Date: 02/09/20 Status: Ordered norethindrone 0.35 mg oral tablet 1 tablet = 0.35 mg, By Mouth, Daily, # 30 tablet, 0 Refills, Maintenance, 02/09/20 10:07:00 EDT, Tablet, [facility], 165, cm, 02/08/20 19:47:00 EDT, Height, [...] Refills, Maintenance, 12/23/20 15:38:00 EST, REC Powder, [facility], Partial fill upon patient request if [...] 0 Refills, Maintenance, 02/09/20 10:05:00 EDT, Inhaler, [facility], 165, cm, 02/08/20 19:47:00 EDT, Height, 104.5, kg, 02/07/20 8:15:00 EDT, Dry Weight Start Date: 02/09/20 Stop Date: 03/10/20 Status: Ordered verapamil 240 mg/12 hours oral tablet, extended release 1 tablet = 240 mg, By Mouth, Daily at bedtime, # 30 tablet, 0 Refills, Maintenance, 02/09/20 10:14:00 EDT, SR Tablet, [facility], 165, cm, 02/08/20 19:47:00 EDT, Height, 104.5, kg, 02/06/208:15:00 EDT, Dry Weight Start Date: 02/09/20 Status: [...]
--- OUTSIDE RECORDS SUMMARY | 2023-07-16 14:40 | XMS_ITS | Continuity of Care Document ---
Author Name Unknown Organization [facility] Address [address] [place] [address]- Care Team Providers Care Supervisor Plastics Name Role Phone Alma BARAHONA, Maribel Primary Care Physician [phone] Encounter [facility] Date(s): 07/20/22 - 09/09/22 [facility] [address] [place], [place] [address] Attending Physician: Rosie Mendez NP Admitting Physician: Vanessa BARAHONA, Rosie Escamilla Referring Physician: Maribel Marquez NP Allergies, Adverse Reactions, [...] tablet, 1 Refills, Maintenance, 07/24/22 15:17:00 EDT, [facility], 165.2, cm, 07/19/22 10:30:00 EDT, Height, [...] 04/11/21 9:22:00 EDT, Route to Pharmacy Electronically, [facility], Partial fill upon patient request if the prescription is for a schedule II opioid dr... Start Date: 04/11/21 Stop Date: 01/06/22 Status: Ordered Flovent HFA 110 mcg/inh inhalation aerosol 2 puffs, Inhalation, 2 times a day, # 12 Gm, 1 Refills, [facility], 162, cm, 03/20/22 19:50:00 EDT, Height, [...] 07/21/22 14:07:00 EDT, Route to Pharmacy Electronically, [facility], Partial fill upon patient requestif the prescription is for a schedule II opioid kaela... Start Date: 07/21/22 Stop Date: 04/17/23 Status: Ordered metFORMIN 500 mg oral tablet See Instructions, TAKE 1 EACH BY MOUTH 2 TIMES A DAY, # 60 tablet, 5 Refills, 08/07/22 10:55:00 EDT, [facility], 165.2, cm, 07/19/22 10:30:00 EDT, Height, [...] 01/04/22 11:12:00 EDT, Route to Pharmacy Electronically, [facility], 165, cm, 12/19/21 10:41:00 EST, Height, [...] 01/19/22 10:48:00 EDT, Route to Pharmacy Electronically, [facility], Partial fill upon patient request if the prescription is for a schedule... Start Date: 01/19/22 Status: Ordered ProAir HFA 90 mcg/inh inhalation aerosol 2 puffs, Inhalation, 4 times a day, PRN as needed for wheezing, # 6.7 Gm, 1 Refills, Maintenance, 06/23/22 16:17:00 EDT, Aerosol, [facility], Partial fill upon patient request if [...] 07/28/22 7:45:00 EDT, Route to Pharmacy Electronically, [facility], 165.2, cm, 07/19/22 10:30:00 EDT, Height, [...] Refills, Maintenance, 05/09/21 8:45:00 EDT, SR Tablet, [facility], 165, cm, 04/11/21 7:42:00 EDT, Height, [...] Team Personnel Name: Rudi Ruiz RN Position: [facility] ED RN W/OE and Tasks Member Role: Primary Care Nurse Name: Alicja Riggs RN Position: [facility] RN Member Role: Primary Care Nurse Name: Ros Fu RN Position: [facility] RN Member Role: Primary Care Nurse Name: Hilda Mccabe RN Position: [facility] RN Member Role: Primary Care Nurse Name: Rosana Kearney RN Position: [facility] AMB Nurse Member Role: Primary Care Nurse Name: Wli Flood RN Position: [facility] RN Member Role: Primary Care Nurse Name: Gagandeep Sheldon RN Position: [facility] RN Member Role: Primary Care Nurse Name: Chip Morton Position: [facility] Outreach Member Role: Lifetime Consulting Physician Name: Alba Daily RN Position: [facility] RN Member Role: Primary Care Nurse Name: Maribel Marquez NP Position: [facility] PCO Associate Professional Member Role: PCP Address: Address: [address] [place] [address]- Name: Jose Ramirez RN Position: [facility] RN Member Role: Primary Care Nurse Name: Brittany Butts RN Position: [facility] AMB Nurse Member Role: Primary Care Nurse Name: Mary Sánchez RN Position: [facility] RN Member Role: Primary Care Nurse Name: Shama Rosado RN Position: [facility] RN Member Role: Primary Care Nurse Name: Jackie Snyder RN Position: [facility] RN Member Role: Primary Care Nurse Name: Jay Burks NP Position: Reference Physician Member Role: Primary Care Nurse Address: Address: [address] [place], [place] [id number] Clinical [facility] [place] [address]- [place] Name: Parvez Kaba MD Position: [facility] Renal MD Member Role: Lifetime Consulting Physician Address: Address: [address] [place] [address] [facility] [place] [address]- [place] Name: Yoana Ledezma RN Position: [facility] RN Member Role: Primary Care Nurse Name: Mirna Paul RN Position: [facility] OB RN Member Role: Primary Care Nurse Name: Latonya Rahman RN Position: [facility] Onco RN Member Role: Primary Care Nurse Name: Claudia Presley RN Position: [facility] RN Member Role: Primary Care Nurse Name: Iris Villa RN Position: [facility] Hospital Childcare Aide Member Role: Primary Care Nurse Care Team Related Persons Name: JO-ANN ROMANMAJOR GIFTS OFFICERINDRA Address: [address] [place] [address] Name: INSIDE STEWARD/STEWARDESSGREGG Address: [address] [place] [address] Name: CARLOS PAZ Address: [address] [place] [address]
--- OUTSIDE RECORDS SUMMARY | 2023-07-16 14:40 | XMS_ITS | Continuity of Care Document ---
Author Name Unknown Organization [facility] ter Address [address] [place] [address]- Care Team Providers Care Risk Control Consultant Name Role Phone Maribel Marquez NP Primary Care Physician Encounter [facility] Date(s): 02/05/23 - 02/06/[address] [address]- Discharge Disposition: A-D/C Home Attending Physician: Shama Baugh DO Admitting Physician: Shama Baugh DO Referring Physician: Not on Staff, Referring MD Allergies, Adverse Reactions, Alerts Substance Reaction Severity Status codeine Active lithium 1 Active penicillin Active predniSONE Active sulfa drugs Active Macrobid Active Zithromax Active Seafood Active Geodon Active 1pt reports 01/17/13 started taking lithium about a week ago. Immunizations Given and Recorded Vaccine Date Status Refusal Reason influenza virus vaccine, inactivated 11/14/22 Give n influenza virus vaccine, inactivated 07/12/21 Russel rded [...] vaccine, inactivated 07/23/06 Russel rded tetanus/diphtheria/pertussis, acel(Tdap) 05/29/22 Given tetanus/diphtheria/pertussis, acel(Tdap) 04/20/21 [...] Patient Refuses 1Early/Late Reason: Nursing Judgment Medications albuterol CFC free 90 mcg/inh inhalation aerosol 90 mcg, 1, puffs, Inhalation, Every 4 hours, PRN, # 6.7 Gm, Refills 0, Tot. Refills 0, Maintenance,11/16/22 10:33:00 EST, Inhaler, Route to Pharmacy Electronically, [id number], [facility], 163, cm, 11/16/22 9:43:00 EST, Height, 97.3,... Start Date: 11/16/22 Status: Ordered atorvastatin 10 mg oral tablet 1 tablet = 10 mg, By Mouth, Daily at bedtime, # 30 tablet, 0 Refills, Maintenance, 11/16/22 10:33:00 EST, Tablet, [facility], Partial fill upon patient request if the prescription is for a schedule II opioid drug., juan j Marrero, 11/16/22 9:43:00... Start Date: 11/16/22 Status: Ordered atorvastatin 10 mg oral tablet 0 Refills, Maintenance, 01/06/23 18:05:00 EDT, Partial fill upon patient request if the prescription is for a schedule II opioid drug. Start Date: 01/06/23 Status: Ordered benztropine 1 mg oral tablet 1 mg, 1, tablet, By Mouth, 2 times a day, # 60 tablet, Refills 0, Tot. Refills 0, Maintenance, 11/16/22 10:33:00 EST, Route to Pharmacy Electronically, [facility], Partial fill upon patientrequest if the prescription is for a schedule II op... Start Date: 11/16/22 Status: Ordered benztropine 1 mg oral tablet Refills 0, Maintenance, 01/06/23 18:05:00 EDT, Partial fill upon patient request if the prescription is for a schedule II opioid drug. Start Date: 01/06/23 Status: Ordered chlorproMAZINE 50 mg oral tablet 1 tablet = 50 mg, By Mouth, 3 times a day, PRN Anxiety, # 90 tablet, 0 Refills, Maintenance, 11/16/22 10:33:00 EST, Tablet, [facility], Partial fill upon patient request if the prescriptionis for a schedule II opioid drug., juan j Marrero, ... Start Date: 11/16/22 Status: Ordered chlorproMAZINE 50 mg oral tablet 0 Refills, Maintenance, 01/06/23 18:05:00 EDT, Partial fill upon patient request if the prescription is for a schedule II opioid drug. Start Date: 01/06/23 Status: Ordered ferrous sulfate 325 mg oral enteric coated tablet 325 mg, 1, tablet, By Mouth, Daily, # 90 tablet, Refills 2, Tot. Refills 2, Maintenance, 11/16/22 10:34:00 EST, Route to Pharmacy Electronically, [facility], Partial fill upon patient request if the prescription is for a schedule II opioid d... Start Date: 11/16/22 Stop Date: 08/13/23 Status: Ordered FLUoxetine 20 mg oral capsule 80 mg, 4, capsule, By Mouth, Daily in AM, # 120 capsule, Refills 0, Tot. Refills 0, Maintenance, 11/16/22 10:34:00 EST, Route to Pharmacy Electronically, [facility], Partial fill upon patient request if the prescription is for a schedule II... Start Date: 11/16/22 Status: Ordered FLUoxetine 40 mg oral capsule 0 Refills, Maintenance, 01/06/23 18:05:00 EDT, Partial fill upon patient request if the prescription is for a schedule II opioid drug. Start Date: 01/06/23 Status: Ordered fluPHENAZine 5 mg oral tablet 5 mg, 1, tablet, By Mouth, 2 times a day, # 60 tablet, Refills 0, Tot. Refills 0, Maintenance, 11/16/22 10:34:00 EST, Route to Pharmacy Electronically, [facility], Partial fill upon patientrequest if the prescription is for a schedule II op... Start Date: 11/16/22 Status: Ordered fluPHENAZine 5 mg oral tablet Refills 0, Maintenance, 01/06/23 18:05:00 EDT, Partial fill upon patient request if the prescription is for a schedule II opioid drug. Start Date: 01/06/23 Status: Ordered lisinopril 5 mg oral tablet 5 mg, 1, tablet, By Mouth, Daily, # 30 tablet, Refills 0, Tot. Refills 0, Maintenance, 11/16/22 10:34:00 EST, Route to Pharmacy Electronically, [facility], Partial fill upon patient requestif the prescription is for a schedule II opioid kaela... Start Date: 11/16/22 Status: Ordered lisinopril 5 mg oral tablet Refills 0, Maintenance, 01/06/23 18:05:00 EDT, Partial fill upon patient request if the prescription is for a schedule II opioid drug. Start Date: 01/06/23 Status: Ordered metFORMIN 500 mg oral tablet 1 each = 500 mg, By Mouth, 2 times a day, # 60 tablet, 0 Refills, Maintenance, 11/16/22 10:34:00 EST, Tablet, [facility], Partial fill upon patient request if the prescription is for a schedule II opioid drug., 163, cm, 11/16/22 9:43:00 EST,... Start Date: 11/16/22 Status: Ordered metFORMIN 500 mg oral tablet 0 Refills, Maintenance, 01/06/23 18:05:00 EDT, Partial fill upon patient request if the prescription is for a schedule II opioid drug. Start Date: 01/06/23 Status: Ordered mirtazapine 15 mg oral tablet 0.5 tablet = 7.5 mg, By Mouth, Daily at bedtime, # 15 tablet, 0 Refills, Maintenance, 11/16/22 10:34:00 EST, Tablet, [facility], Partial fill upon patient request if the prescription is fora schedule II opioid drug., 163, cm, 11/16/22 9:43:... Start Date: 11/16/22 Status: Ordered mirtazapine 7.5 mg oral tablet 0 Refills, Maintenance, 01/06/23 18:05:00 EDT, Partial fill upon patient request if the prescription is for a schedule II opioid drug. Start Date: 01/06/23 Status: Ordered montelukast 10 mg oral tablet 10 mg, 1, tablet, By Mouth, Daily at bedtime, # 30 tablet, Refills 0, Tot. Refills 0, Maintenance, 11/16/22 10:34:00 EST, Route to Pharmacy Electronically, [facility], Partial fill upon patient request if the prescription is for a schedule I... Start Date: 11/16/22 Status: Ordered montelukast 10 mg oral tablet Refills 0, Maintenance, 01/06/23 18:05:00 EDT, Partial fill upon patient request if the prescription is for a schedule II opioid drug. Start Date: 01/06/23 Status: Ordered nystatin topical [id number] u/gm cream 1 application, Topically, 2 times a day, # 15 Gm, 0 Refills, Maintenance, 01/05/23 15:04:00 EDT, Cream, [facility], Partial fill upon patient request if the prescription is for a schedule II opioid drug., 1 application Topically 2 times a da... Start Date: 01/05/23 Status: Ordered nystatin topical [id number] u/gm cream 0 Refills, Maintenance, 01/06/23 18:05:00 EDT, Partial fill upon patient request if the prescription is for a schedule II opioid drug. Start Date: 01/06/23 Status: Ordered pantoprazole 40 mg oral delayed release tablet = 40 mg, By Mouth, Daily, # 30 tablet, 0 Refills, Maintenance, 11/16/22 10:34:00 EST, [facility] Tablet, 163, cm, 11/16/22 9:43:00 EST, Height, 97.3, kg, 11/13/22 16:31:00 EST, Dry Weight Start Date: 11/16/22 Stop Date: 12/16/22 Status: Ordered pantoprazole 40 mg oral delayed release tablet 0 Refills, Maintenance, 01/06/23 18:05:00 EDT Start Date: 01/06/23 Status: Ordered prazosin 1 mg oral capsule 4 mg, 4, capsule, By Mouth, Daily at bedtime, # 120 capsule, Refills 0, Tot. Refills 0, Maintenance, 11/16/22 10:34:00 EST, Route to Pharmacy Electronically, [facility], Partial fill upon patient request if the prescription is for a schedule... Start Date: 11/16/22 Status: Ordered prazosin 1 mg oral capsule Refills 0, Maintenance, 01/06/23 18:05:00 EDT, Partial fill upon patient request if the prescription is for a schedule II opioid drug. Start Date: 01/06/23 Status: Ordered Senna 8.6 mg oral tablet Refills 0, Maintenance, 01/06/23 18:05:00 EDT, Partial fill upon patient request if the prescription is for a schedule II opioid drug. Start Date: 01/06/23 Status: Ordered traZODone 150 mg oral tablet 0 Refills, Maintenance, 01/06/23 18:05:00 EDT, Partial fill upon patient request if the prescription is for a schedule II opioid drug. Start Date: 01/06/23 Status: Ordered traZODone 50 mg oral tablet 150 mg, 3, tablet, By Mouth, Daily at bedtime, # 90 tablet, Refills 0, Tot. Refills 0, Maintenance,11/16/22 10:34:00 EST, Route to Pharmacy Electronically, [facility], Partial fill upon patient request if the prescription is for a schedule... Start Date: 11/16/22 Status: Ordered Problem List Condition Confirmation Course [...] deficiency Confirmed Active Nicotine dependence Confirmed Active Depression, major, recurrent, severe with psychosis Confirmed Active Severe obesity (BMI 35.0-39.9) with comorbidity Confirmed Active Single major depressive episode Confirmed Active Tobacco dependence Confirmed Active Type 2 diabetes mellitus Confirmed Active 1Problem added by Discern Expert Vital Signs Most recent to oldest [Reference Range]: 1 2 Height 146 cm (02/05/23 8:22 PM) Weight 115 kg (02/05/23 8:22 PM) Oxygen Saturation [94-100 %] 96 % (02/06/23 1:13 AM) 95 % (02/05/23 8:22 PM) Pulse Rate [55-90 bpm] 98 bpm *H* (02/06/23 1:13 AM) 96 bpm *H* (02/05/23 8:22 PM) Blood Pressure [90-138/55-84 mm Hg] 131/ 84mm Hg (02/06/23 1:13 AM) 130/94mm Hg (02/05/23 8:22 PM) Temperature [96.8-100.4 DegF] 98.1 DegF (02/06/23 1:13 AM) 98.4 DegF (02/05/23 8:22 PM) Mode of Delivery (Oxygen) Room air (02/06/23 1:13 AM) Temperature Route Oral (02/06/23 1:13 AM) Oral (02/05/23 8:22 PM) Dry Weight 115 kg (02/05/23 8:22 PM) Social History Social History Type Response Smoking Status 10 or more cigarette s (1/2 pack or more)/day in last 30 days; Type: Cigarettes; Other: Reports smoking 1/2-1 packs/day, ending on level of stress; Started at age: 25; entered on: 11/18/22 Sex Patient Care team information Care Team Personnel Name: Rudi Ruiz RN Position: [facility] RN W/OE and Tasks Member Role: Primary Care Nurse Name: Alicja Riggs RN Position: [facility] RN Member Role: Primary Care Nurse Name: Ros Fu RN Position: [facility] RN Member Role: Primary Care Nurse Name: Hilda Mccabe RN Position: [facility] RN Member Role: Primary Care Nurse Name: Rosana Kearney RN Position: [facility] SN RN Member Role: Primary Care Nurse Name: Wil Flood RN Position: [facility] RN Member Role: Primary Care Nurse Name: Gagandeep Sheldon RN Position: [facility] RN Member Role: Primary Care Nurse Name: Chip Morton Position: [facility] Outreach Member Role: Lifetime Consulting Physician Name: Alba Daily RN Position: [facility] RN Member Role: Primary Care Nurse Name: Maribel Marquez NP Position: [facility] PCO Associate Professional Member Role: PCP Address: Address: [address] [place] [address]- Name: Jose Ramirez RN Position: [facility] RN Member Role: Primary Care Nurse Name: Brittany Butts RN Position: [facility] AMB Nurse Member Role: Primary Care Nurse Name: Pauline Mcadams RN Position: [facility] RN Member Role: Primary Care Nurse Name: Mary Sánchez RN Position: [facility] RN Member Role: Primary Care Nurse Name: Shama Rosado RN Position: [facility] RN Member Role: Primary Care Nurse Name: Jackie Snyder RN Position: [facility] RN Member Role: Primary Care Nurse Name: Jay Burks NP Position: Reference Physician Member Role: Primary Care Nurse Address: Address: [address] [place], [place] [id number] Clinical & [place] [address]- [place] Name: Parvez Kaba MD Position: [facility] Renal MD Member Role: Lifetime Consulting Physician Address: Address: [address] [place] [address] [facility] [place] [address]- [place] Name: Mirna Paul RN Position: [facility] OB RN Member Role: Primary Care Nurse Name: Latonya Rahman RN Position: [facility] Onco RN Member Role: Primary Care Nurse Name: Viki Gonzalez RN Position: [facility] RN Member Role: Primary Care Nurse Name: Claudia Presley RN Position: [facility] RN Member Role: Primary Care Nurse Name: Iris Villa RN Position: [facility] Hospital Hydrometeorological Technician Member Role: Primary Care Nurse [facility] Attending Position: [facility] ED Attendings Patient Name: Snow Locke Radha Position: [facility] ED TA [facility] Member Role: Vending Machine Assembler Name: Lenore Baldwin RN Position: [facility] ED RN W/OE and Tasks Member Role: Patient Care Provider Name: Shama Baugh DO Position: [facility] ED Medicine MD Member Role: ED Attending Physician Address: Address: [address] [place] [address] [place] [address]- Care Team Related Persons Name: JO-ANN ROMANBONE TENDERINDRA Address: [address] [place] [address] Name: SHIPPING AGENTGREGG Address: [address] [place] [address] Name: CARLOS PAZ Address: home [address] [place] [address]
--- OUTSIDE RECORDS SUMMARY | 2023-07-16 14:40 | XMS_ITS | Continuity of Care Document ---
Author Name Unknown Organization [facility] ter Address [address] [place] [id number]- Care Team Providers Care Broomcorn Grader Name Role Phone Maribel Marquez NP Primary Care Physician [place] [facility] [place] - 04/19/[address] [address]- Encounter Diagnosis Suicidal ideation(Final) - 04/19/23 Frequent patient in emergency department(Final) - 04/19/23 Cognitive developmental delay(Final) - 04/19/23 Deliberate self-cutting(Final) - 04/19/23 Discharge Disposition: A-D/C Home Attending Physician: Marie Morton MD Admitting Physician: Marie Morton MD Referring Physician: Not on Staff, Referring [...] 10:33:00 EST, Inhaler, Route to Pharmacy Electronically, [id number], [facility], 163, cm, 11/16/22 9:43:00 EST, Height, 97.3,... Start Date: 11/16/22 Status: Ordered atorvastatin 10 mg oral tablet 1 tablet = 10 mg, By Mouth, Daily at bedtime, # 30 tablet, 0 Refills, Maintenance, 11/16/22 10:33:00 EST, Tablet, [facility], Partial fill upon patient request if the prescription is for a schedule II opioid drug., 163, cm, 11/16/22 9:43:00... Start Date: 11/16/22 Status: Ordered [...] 11/16/22 10:33:00 EST, Route to Pharmacy Electronically, [facility], Partial fill upon patientrequest if the prescription is for a schedule II op... Start Date: 11/16/22 Status: Ordered benztropine 1 mg oral tablet Refills 0, Maintenance, 01/06/23 18:05:00 EDT, Partial fill upon patient request if the prescription is for a schedule II opioid drug. Start Date: 01/06/23 Status: Ordered cephalexin monohydrate 500 mg oral capsule 1 capsule = 500 mg, By Mouth, 4 times a day, # 28 capsule, 0 Refills, Maintenance, 03/17/23 22:56:00 EDT, Capsule, Partial fill upon patient request if the prescription is for a schedule II opioid drug. Start Date: 03/17/23 Stop Date: 03/24/23 Status: Ordered chlorproMAZINE 50 mg oral tablet 1 tablet = 50 mg, By Mouth, 3 times a day, PRN Anxiety, # 90 tablet, 0 Refills, Maintenance, 11/16/22 10:33:00 EST, Tablet, [facility], Partial fill upon patient request if the prescriptionis for a schedule II opioid drug., 163, cm, ... Start Date: 11/16/22 Status: Ordered chlorproMAZINE [...] 11/16/22 10:34:00 EST, Route to Pharmacy Electronically, [facility], Partial fill upon patient request if the prescription is for a schedule II opioid d... Start Date: 11/16/22 Stop Date: 08/13/23 Status: Ordered FLUoxetine 20 mg oral capsule 80 mg, 4, capsule, By Mouth, Daily in AM, # 120 capsule, Refills 0, Tot. Refills 0, Maintenance, 11/16/22 10:34:00 EST, Route to Pharmacy Electronically, [facility], Partial fill upon patient request if [...] 11/16/22 10:34:00 EST, Route to Pharmacy Electronically, [facility], Partial fill upon patientrequest if the prescription is for a schedule II op... Start Date: 11/16/22 Status: Ordered fluPHENAZine 5 mg oral tablet Refills 0, Maintenance, 01/06/23 18:05:00 EDT, Partial fill upon patient request if the prescription is for a schedule II opioid drug. Start Date: 01/06/23 Status: Ordered lactulose 10 g/15 mL oral and rectal liquid 0 Refills, Maintenance, 02/21/23 15:50:00 EDT, Partial fill upon patient request if the prescription is for a schedule II opioid drug. Start Date: 02/21/23 Status: Ordered lisinopril 5 mg oral tablet 5 mg, 1, tablet, By Mouth, Daily, # 30 tablet, Refills 0, Maintenance, 03/17/23 22:56:00 EDT, Partial fill upon patient request if the prescription is for a schedule II opioid drug. Start Date: 03/17/23 Status: Ordered lisinopril 5 mg oral tablet 5 mg, 1, tablet, By Mouth, Daily, # 30 tablet, Refills 0, Tot. Refills 0, Maintenance, 02/12/23 10:51:00 EDT, Route to Pharmacy Electronically, [facility], Partial fill upon patient requestif the prescription is for a schedule II opioid kaela... Start Date: 02/12/23 Status: Ordered lisinopril 5 mg oral tablet Refills 0, Maintenance, 01/06/23 18:05:00 EDT, Partial fill upon patient request if the prescription is for a schedule II opioid drug. Start Date: 01/06/23 Status: Ordered Melatonin 5 mg oral tablet 2 tablet, By Mouth, Daily at bedtime, PRN NEEDED FOR SLEEP, # 60 tablet, 1 Refills, Maintenance,02/22/23 10:08:00 EDT, [facility], 146, cm, 02/05/23 20:22:00 EDT, Height, 115, kg, 02/05/23 20:22:00 EDT, Dry Weight Start Date: 02/22/23 Stop Date: 02/23/24 Status: Ordered metFORMIN 500 mg oral tablet 1 tablet = 500 mg, By Mouth, 2 times a day, # 60 tablet, 0 Refills, Maintenance, 03/17/23 22:56:00 EDT, Tablet, Partial fill upon patient request if the prescription is for a schedule II opioid drug. Start Date: 03/17/23 Status: Ordered metFORMIN 500 mg oral tablet 1 each = 500 mg, By Mouth, 2 times a day, # 60 tablet, 0 Refills, Maintenance, 11/16/22 10:34:00 EST, Tablet, [facility], Partial fill upon patient request if the prescription is for a schedule II opioid drug., 163, cm, 11/16/22 9:43:00 EST,... Start Date: 11/16/22 Status: Ordered metFORMIN 500 mg oral tablet 0 Refills, Maintenance, 01/06/23 18:05:00 EDT, Partial fill upon patient request if the prescription is for a schedule II opioid drug. Start Date: 01/06/23 Status: Ordered mirtazapine 15 mg oral tablet 1 tablet = 15 mg, By Mouth, Daily at bedtime, # 30 tablet, 0 Refills, Maintenance, 03/17/23 22:56:00 EDT, Tablet, Partial fill upon patient request if the prescription is for a schedule II opioid drug. Start Date: 03/17/23 Status: Ordered mirtazapine 15 mg oral tablet 0.5 tablet = 7.5 mg, By Mouth, Daily at bedtime, # 15 tablet, 0 Refills, Maintenance, 11/16/22 10:34:00 EST, Tablet, [facility], Partial fill upon patient request if [...] Daily, # 30 tablet, Refills 0, Maintenance, 03/17/23 22:56:00 EDT, Partial fill upon patient request if the prescription is for a schedule II opioid drug. Start Date: 03/17/23 Status: Ordered montelukast 10 mg oral tablet 10 mg, 1, tablet, By Mouth, Daily at bedtime, # 30 tablet, Refills 0, Tot. Refills 0, Maintenance, 11/16/22 10:34:00 EST, Route to Pharmacy Electronically, [facility], Partial fill upon patient request if the prescription is for a schedule I... Start Date: 11/16/22 Status: Ordered montelukast 10 mg oral tablet Refills 0, Maintenance, 01/06/23 18:05:00 EDT, Partial fill upon patient request if the prescription is for a schedule II opioid drug. Start Date: 01/06/23 Status: Ordered nystatin topical [id number] u/gm cream 1 application, Topically, 2 times a day, # 15 Gm, 0 Refills, Maintenance, 01/05/23 15:04:00 EDT, Cream, [facility], Partial fill upon patient request if the prescription is for a schedule II opioid drug., 1 application Topically 2 times a da... Start Date: 01/05/23 Status: Ordered nystatin topical [id number] u/gm cream 0 Refills, Maintenance, 01/06/23 18:05:00 EDT, Partial fill upon patient request if the prescription is for a schedule II opioid drug. Start Date: 01/06/23 Status: Ordered pantoprazole 40 mg oral delayed release tablet 1 tablet = 40 mg, By Mouth, Daily, # 30 tablet, 0 Refills, Maintenance, 03/17/23 22:57:00 EDT, EC Tablet Start Date: 03/17/23 Status: Ordered pantoprazole 40 mg oral delayed [...] 11/16/22 10:34:00 EST, Route to Pharmacy Electronically, [facility], Partial fill upon patient request if [...] Maintenance,11/16/22 10:34:00 EST, Route to Pharmacy Electronically, [facility], Partial fill upon patient request if [...] Active Single major depressive episode Confirmed Active Fatty liver Confirmed Active Tobacco dependence Confirmed Active Type 2 diabetes mellitus Confirmed Active 1Problem added by Discern Expert Vital Signs Most recent to oldest [Reference Range]: 1 Oxygen Saturation [94-100 %] 98 % (04/18/23 9:24 PM) Pulse Rate [55-90 bpm] 89 bpm (04/18/23 9:24 PM) Blood Pressure [90-138/55-84 mm Hg] 138/ 82mm Hg (04/18/23 9:24 PM) Respiratory Rate [16-30 br/min] 20 br/mi n (04/18/23 9:24 PM) Temperature [96.8-100.4 DegF] 98.2 DegF (04/18/23 9:24 PM) Mode of Delivery (Oxygen) Room air (04/18/23 9:24 PM) Temperature Route Oral (04/18/23 9:24 PM) Social History Social History Type Response Smoking Status 10 or more cigarette s (1/2 pack or more)/day in last 30 days; Type: Cigarettes; Other: Reports smoking 1/2-1 packs/day, ending on level of stress; Started at age: 25; entered on: 11/18/22 Sex EKG study * Event Display: ECG 12-Lead Authored Date: Please click on pdf link to open report * Event Display: ECG 12-Lead Authored Date: Ventricular Rate: 83 BPM Atrial Rate: 83 BPM P-R Interval: 166 ms QRS Duration: 78 ms Q-T Interval: 388 ms QTC Calculation(Bazett): 455 ms P Altura: 17 degrees R Altura: 30 degrees T Altura: 40 degrees Normal sinus rhythm Low voltage QRS Borderline ECG Confirmed by AMY ERNST ([id number]) on 04/19/2023 9:01:04 PM Radisson: AMY ERNST Patient Care team information Care Team Personnel Name: Rudi Ruiz RN Position: [facility] ED RN W/OE and Tasks Member Role: Primary Care Nurse Name: Alicja Riggs RN Position: [facility] RN Member Role: Primary Care Nurse Name: Ros Fu RN Position: [facility] RN Member Role: Primary Care Nurse Name: Hilda Mccabe RN Position: [facility] RN Member Role: Primary Care Nurse Name: Rosana Kearney RN Position: [facility] SN RN Member Role: Primary Care Nurse Name: Wil Flood RN Position: [facility] RN Member Role: Primary Care Nurse Name: Gagandeep Sheldon RN Position: [facility] RN Member Role: Primary Care Nurse Name: Chip Morton Position: [facility] Outreach Member Role: Lifetime Consulting Physician Name: Alba Daily RN Position: [facility] RN Member Role: Primary Care Nurse Name: Maribel Marquez NP Position: [facility] PCO Associate Professional Member Role: PCP Address: Address: [address] [place] [address] Name: Jose Ramirez RN Position: [facility] RN Member Role: Primary Care Nurse Name: Brittany Butts RN Position: [facility] AMB Nurse Member Role: Primary Care Nurse Name: Pauline Mcadams RN Position: [facility] RN Member Role: Primary Care Nurse Name: Mary Sánchez RN Position: [facility] RN Member Role: Primary Care Nurse Name: Shama Rosado RN Position: [facility] RN Member Role: Primary Care Nurse Name: Jackie Snyder RN Position: [facility] RN Member Role: Primary Care Nurse Name: Kimmie BARAHONA, Jay Miles Position: Reference Physician Member Role: Primary Care Nurse Address: Address: [address] Clinical & [place] [address]- [place] Name: Parvez Kaba MD Position: [facility] Renal MD Member Role: Lifetime Consulting Physician Address: Address: [address] [facility] [place] [address]- [place] Name: Mirna Paul RN Position: [facility] OB RN Member Role: Primary Care Nurse Name: Latonya Rahman RN Position: [facility] Onco RN Member Role: Primary Care Nurse Name: Viki Gonzalez RN Position: [facility] RN Member Role: Primary Care Nurse Name: Claudia Presley RN Position: [facility] RN Member Role: Primary Care Nurse Name: Iris Villa RN Position: [facility] Hospital Pharmacy Graduate Intern Member Role: Primary Care Nurse [facility] Attending Position: [facility] ED Attendings Patient Name: Lisa Bejarano RN Position: [facility] ED RN W/OE and Tasks Member Role: Patient Care Provider Name: Marie Morton MD Position: [facility] ED Medicine MD Member Role: ED Attending Physician Address: Address: [address] [place] [address] [place] [address]- [place] Name: Justina Kimbrough Position: [facility] ED TA CARIDAD Member Role: Paper Products Inspector Care Team Related Persons Name: JO-ANN ROMANARTS AND SCIENCES DEANINDRA Address: home [address] [place] [address] Name: ASSEMBLY MACHINE FEEDERGREGG Address: home [address] [place] [address] Name: CARLOS PAZ Address: home [address] [place] [address]
--- OUTSIDE RECORDS SUMMARY | 2023-07-16 14:40 | XMS_ITS | Continuity of Care Document ---
Author Name Unknown Organization [facility] Adult Address [address] [place] [address]- Care Team Providers Care Veterinary Inspector Name Role Phone Maribel Marquez NP Primary Care Physician [phone] [place]counter [facility] [place]s): 08/02/21 - 09/01/21 [facility] Adult [address] [place] [address]- Allergies, Adverse Reactions, Alerts Substance Reaction Severity Status codeine Active lithium 1 Active penicillin Active predniSONE Active Macrobid Active Zithromax Active Seafood Active sulfa drugs Active Geodon Active 1pt reports 01/17/13 started [...] 0 Refills, Maintenance, 06/28/21 10:16:00 EDT, Tablet, [facility], Partial fill upon patient [...] 0 Refills, Maintenance, 02/09/20 10:08:00 EDT, Tablet, [facility], 165, cm, 02/08/20 19:47:00 EDT, Height, 104.5, kg,02/07/20 8:15:00 EDT, Dry Weight Start Date: 02/09/20 Status: Ordered doxazosin 1 mg oral tablet 3 mg, 3, tablet, By Mouth, Daily at bedtime, # 90 tablet, Refills 0, Tot. Refills 0, Maintenance, 07/22/20 18:41:00 EDT, Route to Pharmacy Electronically, [facility], 163.5, cm, 07/22/20 18:29:00 EDT, Height, [...] 3 Refills, Maintenance, 05/09/21 8:41:00 EDT, Aerosol, [facility], 165, cm, 04/11/21 7:42:00 EDT, Height, 102.6, kg, 02/12/21 12:14:00 EDT, Dry Weight Start Date: 05/09/21 Status: Ordered Haldol Decanoate decanoate 100 mg/ml injectable solution = 100 mg, Intramuscular, Every 28 days, last dose given on 09/17/2020. Next due 10/15/20., # 1 each, 0Refills, Soft Stop, 07/22/20 18:42:00 EDT, Solution, [facility], 163.5, cm, 07/22/20 18:29:00 EDT, Height, 102.5, kg, 07/18/20 21:04:00 EDT,... Start Date: 07/22/20 Status: Ordered ibuprofen 600 mg oral tablet 600 mg, 1, tablet, By Mouth, Every 6 hours, PRN, # 120 tablet, Refills 0, Tot. Refills 0, Maintenance, Headache, 08/08/21 7:41:00 EDT, Route to Pharmacy Electronically, [facility], Partial fill upon patient request if the prescription is for... Start Date: 08/08/21 Stop Date: 09/07/21 Status: Ordered lisinopril 5 mg oral tablet 5 mg, 1, tablet, By Mouth, Daily, # 90 tablet, Refills 1, Tot. Refills 1, Maintenance, 05/09/21 8:43:00 EDT, Route to Pharmacy Electronically, [facility], 165, cm, 04/11/21 7:42:00 EDT, Height, 102.6, kg, 02/12/21 12:14:00 EDT, Dry Weight Start Date: 05/09/21 Status: Ordered loratadine 10 mg oral tablet 10 mg, 1, tablet, By Mouth, Daily, # 90 tablet, Refills 3, Tot. Refills 3, Maintenance, 04/11/21 9:38:00 EDT, [facility] [place] Pharmacy Electron[facility], [facility] [...] each, 1 Refills, Maintenance, 05/09/21 8:43:00 EDT,Tablet, [facility], Partial fill upon patient request if the prescription is for a schedule II opioid drug., 165, cm, 04/11/21 7:42:00 EDT, H... Start Date: 05/09/21 Stop Date: 11/05/21 Status: Ordered montelukast 10 mg oral tablet 10 mg, 1, tablet, By Mouth, Daily, # 90 tablet, Refills 1, Tot. Refills 1, Maintenance, 05/09/21 8:45:00 EDT, Route to Pharmacy Electronically, [facility], 165, cm, 04/11/21 7:42:00 EDT, Height, [...] Gm, 5 Refills, Acute, 05/10/21 11:59:00 EDT, [facility], 15, TAKE 17 GM BY MOUTH [...] 0 Refills, Maintenance, 02/09/20 10:05:00 EDT, Inhaler, [facility], 165, cm, 02/08/20 19:47:00 EDT, Height, 104.5, kg, 02/07/20 8:15:00 EDT, Dry Weight Start Date: 02/09/20 Stop Date: 03/10/20 Status: Ordered verapamil 240 mg/12 hours oral tablet, extended release 1 tablet = 240 mg, By Mouth, Daily at bedtime, # 90 tablet, 1 Refills, Maintenance, 05/09/21 8:45:00 EDT, SR Tablet, [facility], 165, cm, 04/11/21 7:42:00 EDT, Height, [...]
--- OUTSIDE RECORDS SUMMARY | 2023-07-16 14:40 | XMS_ITS | Continuity of Care Document ---
Author Name Unknown Organization [facility] Adult Address [address] [place] [address]- Care Team Providers Care Glass Etcher Name Role Phone Maribel Marquez NP Primary Care Physician Encounter [facility] [place] Date(s): 10/25/21 - 11/24/21 [facility] Adult [address] [place] [address]- Allergies, Adverse Reactions, Alerts Substance Reaction Severity [...] 07/22/20 18:41:00 EDT, Route to Pharmacy Electronically, [facility], 163.5, cm, 07/22/20 18:29:00 EDT, Height, 102.5, kg, 07/18/20 21:04:00 EDT... Start Date: 07/22/20 Status: Ordered ferrous sulfate 325 mg oral enteric coated tablet 325 mg, 1, tablet, By Mouth, Daily, # 90 tablet, Refills 2, Tot. Refills 2, Maintenance, 04/11/21 9:22:00 EDT, Route to Pharmacy Electronically, [facility], Partial fill upon patient request if the prescription is for a schedule II opioid drRobi.. Start Date: 04/11/21 Stop Date: 01/06/22 Status: Ordered Flovent HFA 110 mcg/inh inhalation aerosol 2 puffs = 220 mcg, Inhalation, 2 times a day, # 3 each, 3 Refills, Maintenance, 05/09/21 8:41:00 EDT, Aerosol, [facility], 165, cm, 04/11/21 7:42:00 EDT, Height, [...] 05/09/21 8:43:00 EDT, Route to Pharmacy Electronically, [facility], 165, cm, 04/11/21 7:42:00 EDT, Height, [...] 04/11/21 9:38:00 EDT, Route to Pharmacy Electronically, [facility], Partial fill upon patient requestif the prescription is for a schedule II opioid janet. Start Date: 04/11/21 Stop Date: 04/06/22 Status: [...] each, 1 Refills, Maintenance, 05/09/21 8:43:00 EDT,Tablet, [facility], Partial fill upon patient request if [...] 05/09/21 8:45:00 EDT, Route to Pharmacy Electronically, [facility], 165, cm, 04/11/21 7:42:00 EDT, Height, [...] Start Date: 11/08/21 Status: Ordered nystatin topical [id number] u/gm cream 1 application, Topically, 2 times [...] Gm, 5 Refills, Acute, 05/10/21 11:59:00 EDT, [facility], 15, TAKE 17 GM BY MOUTH [...] 0 Refills, Maintenance, 02/09/20 10:05:00 EDT, Inhaler, [facility], 165, cm, 02/08/20 19:47:00 EDT, Height, 104.5, kg, 02/07/20 8:15:00 EDT, Dry Weight Start Date: 02/09/20 Stop Date: 03/10/20 Status: Ordered verapamil 240 mg/12 hours oral tablet, extended release 1 tablet = 240 mg, By Mouth, Daily at bedtime, # 90 tablet, 1 Refills, Maintenance, 05/09/21 8:45:00 EDT, SR Tablet, [facility], 165, cm, 04/11/21 7:42:00 EDT, Height, [...]
--- OUTSIDE RECORDS SUMMARY | 2023-07-16 14:40 | XMS_ITS | Continuity of Care Document ---
Author Name Unknown Organization [facility] Adult Address [address] [place] [address]- Care Team Providers Care Clerical Adviser Name Role Phone Maribel Marquez NP Primary Care Physician [phone] [place] [facility] [place] 04/25/22 - 05/25/22 [facility] [address] [place] [address]- Allergies, Adverse Reactions, Alerts Substance Reaction Severity [...] tablet, 0 Refills, Maintenance, 01/04/22 11:12:00 EDT, [facility], Partial fill upon patient request if [...] 04/11/21 9:22:00 EDT, Route to Pharmacy Electronically, [facility], Partial fill upon patient request if the prescription is for a schedule II opioid drCheyanne. Start Date: 04/11/21 Stop Date: 01/06/22 Status: Ordered Flovent HFA 110 mcg/inh inhalation aerosol 2 puffs, Inhalation, 2 times a day, # 12 Gm, 1 Refills, [facility], 162, cm, 03/20/22 19:50:00 EDT, Height, [...] Tablet, ; Start Date: 11/08/21 Status: Ordered metFORMIN 500 mg oral tablet See Instructions, TAKE 1 EACH BY MOUTH 2 TIMES A DAY, # 60 tablet, 5 Refills, [facility],165, cm, 01/19/22 13:55:00 EDT, Height, 103, [...] 01/04/22 11:12:00 EDT, Route to Pharmacy Electronically, [facility], 165, cm, 12/19/21 10:41:00 EST, Height, 103, kg, 11/26/21 8:59:00 EST, DrCheyanne. Start Date: 01/04/22 Status: Ordered pantoprazole 40 mg oral delayed release tablet 1 tablet = 40 mg, By Mouth, Daily, Maintenance, 01/30/22 13:58:00 EDT, EC Tablet Start Date: 01/30/22 Status: Ordered prazosin 1 mg oral capsule 4 mg, 4, capsule, By Mouth, Daily at bedtime, # 120 capsule, Refills 5, Tot. Refills 5, Maintenance, 01/19/22 10:48:00 EDT, Route to Pharmacy Electronically, [facility], Partial fill upon patient request if [...] Refills, Maintenance, 05/09/21 8:45:00 EDT, SR Tablet, [facility], 165, cm, 04/11/21 7:42:00 EDT, Height, 102.6, kg, 02/12/21 12:14:00 EDT, Dry Weight Start Date: 05/09/21 Status: Ordered Problem List Condition Effective Dates Status Health Status Inform ant Asthma(Confirmed) Active Borderline personality disorder(Confirmed) Active Chronic abdominal pain(Confirmed) Active Chronic post-traumatic stres s disorder (PTSD)(Confirmed) Active COVID-19(Confirmed) 1 03/20/22 Active COVID-19(Confirmed) 2 04/08/22 Active Depression(Confirmed) Active GERD (gastroesophageal reflu x disease)(Confirmed) Active Hyperlipidemia NOS(Confirmed) Active Hypertension(Confirmed) Active Anemia, iron deficiency(Confirmed) Active Nicotine dependence(Confirmed) Active Obese class II(Confirmed) Active Depression, major, recurrent , severe with psychosis(Confirmed) Active Single major depressive episode(Confirmed) Active Tobacco dependence(Confirmed) Active Type 2 diabetes mellitus(Confirmed) Active 1Problem added by Discern Expert 2Problem added by Discern Expert Social History Social History Type Response Smoking Status 10 or more cigarette s (1/2 pack or more)/day in last 30 days; Type: Cigarettes; Other: Reports smoking 1/2-1 packs/day, ending on level of stress; Started at age: 25; entered on: 12/31/20 Sex
--- OUTSIDE RECORDS SUMMARY | 2023-07-16 14:40 | XMS_ITS | Continuity of Care Document ---
Author Name Unknown Organization [facility] ter Address [address] [place] [address]- Care Team Providers Care Manager Business Banking Name Role Phone Maribel Marquez NP Primary Care Physician Encounter [facility] [place] Date(s): 05/18/22 - 05/19/[address] [address]- Encounter Diagnosis Suicidal intent(Final) - 05/18/22 Discharge Disposition: A-D/C Home Attending Physician: Debo Francisco MD Admitting Physician: Debo Francisco MD Referring Physician: Not on Staff, Referring [...] tablet, 0 Refills, Maintenance, 01/04/22 11:12:00 EDT, [facility], Partial fill upon patient request if [...] 04/11/21 9:22:00 EDT, Route to Pharmacy Electronically, [facility], Partial fill upon patient request if the prescription is for a schedule II opioid drCheyanne. Start Date: 04/11/21 Stop Date: 01/06/22 Status: Ordered Flovent HFA 110 mcg/inh inhalation aerosol 2 puffs, Inhalation, 2 times a day, # 12 Gm, 1 Refills, [facility], 162, cm, 03/20/22 19:50:00 EDT, Height, [...] A DAY, # 60 tablet, 5 Refills, [facility],165, cm, 01/19/22 13:55:00 EDT, Height, 103, [...] 01/04/22 11:12:00 EDT, Route to Pharmacy Electronically, [facility], 165, cm, 12/19/21 10:41:00 EST, Height, 103, kg, 11/26/21 8:59:00 EST, DrRobi.. Start Date: 01/04/22 Status: Ordered pantoprazole 40 mg oral delayed release tablet 1 tablet = 40 mg, By Mouth, Daily, Maintenance, 01/30/22 13:58:00 EDT, EC Tablet Start Date: 01/30/22 Status: Ordered prazosin 1 mg oral capsule 4 mg, 4, capsule, By Mouth, Daily at bedtime, # 120 capsule, Refills 5, Tot. Refills 5, Maintenance, 01/19/22 10:48:00 EDT, Route to Pharmacy Electronically, [facility], Partial fill upon patient request if [...] Refills, Maintenance, 05/09/21 8:45:00 EDT, SR Tablet, [facility], 165, cm, 04/11/21 7:42:00 EDT, Height, [...] Discern Expert 2Problem added by Discern Expert Vital Signs Most recent to oldest [Reference Range]: 1 Oxygen Saturation [94-100 %] 97 % (05/18/22 9:22 PM) Pulse Rate [55-90 bpm] 79 bpm (05/18/22 9:22 PM) Blood Pressure [90-138/55-84 mm Hg] 141/ 75mm Hg *H* (05/18/22 9:22 PM) Respiratory Rate [16-30 br/min] 18 br/mi n (05/18/22 9:22 PM) Temperature [96.8-100.4 DegF] 98.3 DegF (05/18/22 9:22 PM) Temperature Route Oral (05/18/22 9:22 PM) Social History Social History Type Response Smoking Status 10 or more cigarette s (1/2 pack or more)/day in last 30 days; Type: Cigarettes; Other: Reports smoking 1/2-1 packs/day, ending on level of stress; Started at age: 25; entered on: 12/31/20 Sex
--- OUTSIDE RECORDS SUMMARY | 2023-07-16 14:40 | XMS_ITS | Continuity of Care Document ---
Author Name Unknown Organization [facility] Adult Address [address] [place] [address]- Care Team Providers Care Checking Clerk Name Role Phone Maribel Marquez NP Primary Care Physician [phone] Encounter [facility] [place] Date(s): 11/28/21 - 12/28/21 [facility] [address] [place] [address]- Allergies, Adverse Reactions, Alerts Substance Reaction Severity Status codeine Active Seafood Active Geodon Active lithium 1 Active penicillin Active predniSONE Active sulfa drugs Active Macrobid Active Zithromax Active 1pt reports 01/17/13 started taking lithium [...] Daily, # 90 tablet, 0 Refills, Maintenance, 12/14/21 9:46:00 EST, [facility], Partial fill upon patient request if the prescription is for a schedule II opioid drug., 165, cm, 12/12/21 13:33:00 EST, Height, 103, k... Start Date: 12/14/21 Status: Ordered benztropine 1 mg oral tablet [...] 07/22/20 18:41:00 EDT, Route to Pharmacy Electronically, [facility], 163.5, cm, 07/22/20 18:29:00 EDT, Height, 102.5, kg, 07/18/20 21:04:00 EDT... Start Date: 07/22/20 Status: Ordered ferrous sulfate 325 mg oral enteric coated tablet 325 mg, 1, tablet, By Mouth, Daily, # 90 tablet, Refills 2, Tot. Refills 2, Maintenance, 04/11/21 9:22:00 EDT, Route to Pharmacy Electronically, [facility], Partial fill upon patient request if the prescription is for a schedule II opioid . Start Date: 04/11/21 Stop Date: 01/06/22 Status: Ordered Flovent HFA 110 mcg/inh inhalation aerosol 2 puffs, Inhalation, 2 times a day, # 12 Gm, 2 Refills, [facility], 165, cm, 12/19/21 10:41:00 EST, Height, [...] 05/09/21 8:43:00 EDT, Route to Pharmacy Electronically, [facility], 165, cm, 04/11/21 7:42:00 EDT, Height, [...] 04/11/21 9:38:00 EDT, Route to Pharmacy Electronically, [facility], Partial fill upon patient requestif the [...] each, 1 Refills, Maintenance, 05/09/21 8:43:00 EDT,Tablet, [facility], Partial fill upon patient request if [...] 05/09/21 8:45:00 EDT, Route to Pharmacy Electronically, [facility], 165, cm, 04/11/21 7:42:00 EDT, Height, [...] Start Date: 11/08/21 Status: Ordered nystatin topical 588781 u/gm cream 1 application, Topically, 2 times [...] Gm, 5 Refills, Acute, 05/10/21 11:59:00 EDT, [facility], 15, TAKE 17 GM BY MOUTH [...] 0 Refills, Maintenance, 02/09/20 10:05:00 EDT, Inhaler, [facility], 165, cm, 02/08/20 19:47:00 EDT, Height, 104.5, kg, 02/07/20 8:15:00 EDT, Dry Weight Start Date: 02/09/20 Stop Date: 03/10/20 Status: Ordered verapamil 240 mg/12 hours oral tablet, extended release 1 tablet = 240 mg, By Mouth, Daily at bedtime, # 90 tablet, 1 Refills, Maintenance, 05/09/21 8:45:00 EDT, SR Tablet, [facility], 165, cm, 04/11/21 7:42:00 EDT, Height, [...]
--- OUTSIDE RECORDS SUMMARY | 2023-07-16 14:40 | XMS_ITS | Continuity of Care Document ---
Author Name Unknown Organization [facility] ter Address [address] [place] [address]- Care Team Providers Care Preparation Room Manager Name Role Phone Maribel Marquez NP Primary Care Physician [phone] [place] [facility] [place] 02/27/23 - 02/28/[address] [address]- Discharge Disposition: A-D/C Home Attending Physician: Swathi LE, Yony Magana Admitting Physician: Yony Echevarria MD Referring Physician: Not on Staff, Referring [...] 10:33:00 EST, Inhaler, Route to Pharmacy Electronically, NCPDP_[id number], [facility], 163, cm, 11/16/22 9:43:00 EST, Height, 97.3,... Start Date: 11/16/22 Status: Ordered atorvastatin 10 mg oral tablet 1 tablet = 10 mg, By Mouth, Daily at bedtime, # 30 tablet, 0 Refills, Maintenance, 11/16/22 10:33:00 EST, Tablet, [facility], Partial fill upon patient request if [...] 11/16/22 10:33:00 EST, Route to Pharmacy Electronically, [facility], Partial fill upon patientrequest if the prescription [...] 0 Refills, Maintenance, 11/16/22 10:33:00 EST, Tablet, [facility], Partial fill upon patient request if [...] 11/16/22 10:34:00 EST, Route to Pharmacy Electronically, [facility], Partial fill upon patient request if the prescription is for a schedule II opioid d... Start Date: 11/16/22 Stop Date: 08/13/23 Status: Ordered FLUoxetine 20 mg oral capsule 80 mg, 4, capsule, By Mouth, Daily in AM, # 120 capsule, Refills 0, Tot. Refills 0, Maintenance, 11/16/22 10:34:00 EST, Route to Pharmacy Electronically, [facility], Partial fill upon patient request if [...] 11/16/22 10:34:00 EST, Route to Pharmacy Electronically, [facility], Partial fill upon patientrequest if the [...] lisinopril 5 mg oral tablet 5 mg, Tablet, By Mouth, 02/28/23 9:00:00 EDT Start Date: 02/28/23 Stop Date: 02/28/23 Status: Completed lisinopril 5 mg oral tablet 5 mg, 1, tablet, By Mouth, Daily, # 30 tablet, Refills 0, Tot. Refills 0, Maintenance, 02/12/23 10:51:00 EDT, Route to Pharmacy Electronically, [facility], Partial fill upon patient requestif the prescription [...] 60 tablet, 1 Refills, Maintenance,02/22/23 10:08:00 EDT, [facility], 146, cm, 02/05/23 20:22:00 EDT, Height, 115, kg, 02/05/23 20:22:00 EDT, Dry Weight Start Date: 02/22/23 Stop Date: 02/23/24 Status: Ordered metFORMIN 500 mg oral tablet 1 each = 500 mg, By Mouth, 2 times a day, # 60 tablet, 0 Refills, Maintenance, 11/16/22 10:34:00 EST, Tablet, [facility], Partial fill upon patient request [...] 0 Refills, Maintenance, 11/16/22 10:34:00 EST, Tablet, [facility], Partial fill upon patient request [...] 11/16/22 10:34:00 EST, Route to Pharmacy Electronically, [facility], Partial fill upon patient request if the prescription is for a schedule I... Start Date: 11/16/22 Status: Ordered montelukast 10 mg oral tablet Refills 0, Maintenance, 01/06/23 18:05:00 EDT, Partial fill upon patient request if the prescription is for a schedule II opioid drug. Start Date: 01/06/23 Status: Ordered nystatin topical 706060 u/gm cream 1 application, Topically, 2 times a day, # 15 Gm, 0 Refills, Maintenance, 01/05/23 15:04:00 EDT, Cream, [facility], Partial fill upon patient request if the prescription is for a schedule II opioid drug., 1 application Topically 2 times a da... Start Date: 01/05/23 Status: Ordered nystatin topical 275232 u/gm cream 0 Refills, Maintenance, 01/06/23 18:05:00 [...] 11/16/22 10:34:00 EST, Route to Pharmacy Electronically, [facility], Partial fill upon patient request if [...] Maintenance,11/16/22 10:34:00 EST, Route to Pharmacy Electronically, [facility], Partial fill upon patient request if [...] oldest [Reference Range]: 1 2 3 Height 164 cm (02/28/23 6:15 AM) 164 cm (02/27/23 7:58 PM) Weight 100 kg (02/28/23 6:15 AM) 100 kg (02/27/23 7:58 PM) Oxygen Saturation [94-100 %] 100 % (02/28/23 6:15 AM) 97 % (02/27/23 7:58 PM) Pulse Rate [55-90 bpm] 77 bpm (02/28/23 6:15 AM) 96 bpm *H* (02/27/23 7:58 PM) Body Mass Index [18.5-24.99 kg/m2] 37.18 kg/m2 *>HHI* (02/28/23 6:15 AM) Blood Pressure [90-138/55-84 mm Hg] 142/90mm Hg *H* (02/28/23 8:33 AM) 142/90mm Hg *H* (02/28/23 6:15 AM) 144/92mm Hg *H* (02/27/23 7:58 PM) Respiratory Rate [16-30 br/min] 25 br/min (02/28/23 6:15 AM) 20 br/min (02/27/23 7:58 PM) Temperature [96.8-100.4 DegF] 97.7 DegF (02/28/23 6:15 AM) 98.6 DegF (02/27/23 7:58 PM) Mode of Delivery (Oxygen) Room air (02/28/23 6:15 AM) Room air (02/27/23 7:58 PM) Blood pressure sites Arm, left (02/28/23 6:15 AM) Arm, right (02/27/23 7:58 PM) Temperature Route Oral (02/28/23 6:15 AM) Oral (02/27/23 7:58 PM) Dry Weight 100 kg (02/28/23 6:15 AM) 100 kg (02/27/23 7:58 PM) Social History Social History Type Response Smoking Status 10 or more cigarette s (1/2 pack or more)/day in last 30 days; Type: Cigarettes; Other: Reports smoking 1/2-1 packs/day, ending on level of stress; Started at age: 25; entered on: 11/18/22 Sex Patient Care team information Care Team Personnel Name: Rudi Ruiz RN Position: [facility] ED RN W/OE and Tasks Member Role: Primary Care Nurse Name: Alicja Riggs RN Position: [facility] RN Member Role: Primary Care Nurse Name: Ros Fu RN Position: [facility] RN Member Role: Primary Care Nurse Name: Hilda Mccabe RN Position: [facility] RN Member Role: Primary Care Nurse Name: Rosana Kearney RN Position: [facility] SN RN Member Role: Primary Care Nurse Name: Wil Folod RN Position: [facility] RN Member [...] Associate Professional Member Role: PCP Address: Address: [address] [place] [address]- [place] Name: Jose Ramirez RN [facility] Member Role: Primary Care Nurse Address: Address: [address] [place], [place] [id number] Clinical [facility] [place] [address]- [place] Name: Parvez Kaba MD Position: [facility] Renal MD Member Role: Lifetime Consulting Physician Address: Address: [address] [place] [address] [facility] [place] [address]- [place] Name: Mirna Paul RN Position: [facility] OB RN Member Role: Primary Care Nurse Name: Latonya Rahman RN Position: [facility] Onco RN Member Role: Primary Care Nurse Name: Viki Gonzalez RN Position: [facility] RN Member Role: Primary Care Nurse Name: Claudia Prelsey RN Position: [facility] RN Member Role: Primary Care Nurse Name: Iris Villa RN Position: [facility] Hospital Mechanic Helper Member Role: Primary Care Nurse [facility] Attending Position: [facility] ED Attendings Patient Name: Lenore Mtz RN Position: [facility] ED RN W/OE and Tasks Member Role: Patient Care Provider Name: Yony Echevarria MD Position: [facility] ED Medicine MD Member Role: Admitting Physician Address: Address: [address] [place] [address] [place] [address]- [place] Care Team Related Persons Name: JO-ANN ROMANASSISTANT WOMEN'S BASKETBALL COACHINDRA Address: [address] [place] [address] Name: ENGINE SETTERGREGG Address: home [address] [place] [address] Name: CARLOS PAZ Address: home [address] [place] [address]
--- OUTSIDE RECORDS SUMMARY | 2023-07-16 14:41 | XMS_ITS | Continuity of Care Document ---
Author Name Unknown Organization [facility] Adult Address [address] [place] [address]- Care Team Providers Care Escalator Operator Name Role Phone Maribel Marquez NP Primary Care Physician [phone] Encounter [facility] [place](s): 05/15/23 - 06/14/23 [facility] [address] [place] [address]- Allergies, Adverse Reactions, Alerts Substance Reaction Severity [...] ded Measles/Mumps/Rubella Virus Vaccine 03/15/79 Recor ded 1Early/Late Reason: Nursing Judgment Medications Albuterol (Eqv-Ventolin HFA) 90 mcg/inh inhalation aerosol 2 puffs, Inhalation, Every 6 hours, PRN Wheezing/Shortness of Breath, # 1 each, 5 Refills, Maintenance, 05/22/23 11:32:00 EDT, [facility], Partial fill upon patient request if the prescription is for a schedule II opioid drug., 2 puffs Inhal... Start Date: 05/22/23 Stop Date: 05/22/24 Status: Ordered albuterol CFC free 90 mcg/inh inhalation aerosol 90 mcg, 1, puffs, Inhalation, Every 4 hours, PRN, # 6.7 Gm, Refills 0, Tot. Refills 0, Maintenance,11/16/22 10:33:00 EST, Inhaler, Route to Pharmacy Electronically, NCPDP_[id number], [facility], 163, cm, 11/16/22 9:43:00 EST, Height, 97.3,... Start Date: 11/16/22 Status: Ordered atorvastatin 10 mg oral tablet 1 tablet = 10 mg, By Mouth, Daily at bedtime, # 30 tablet, 0 Refills, Maintenance, 11/16/22 10:33:00 EST, Tablet, [facility], Partial fill upon patient request if [...] 11/16/22 10:33:00 EST, Route to Pharmacy Electronically, [facility], Partial fill upon patientrequest if the [...] 0 Refills, Maintenance, 11/16/22 10:33:00 EST, Tablet, [facility], Partial fill upon patient request if [...] 11/16/22 10:34:00 EST, Route to Pharmacy Electronically, [facility], Partial fill upon patient request if the prescription is for a schedule II opioid d... Start Date: 11/16/22 Stop Date: 08/13/23 Status: Ordered FLUoxetine 20 mg oral capsule 80 mg, 4, capsule, By Mouth, Daily in AM, # 120 capsule, Refills 0, Tot. Refills 0, Maintenance, 11/16/22 10:34:00 EST, Route to Pharmacy Electronically, [facility], [...] 11/16/22 10:34:00 EST, Route to Pharmacy Electronically, [facility], Partial fill upon patientrequest if the [...] 02/12/23 10:51:00 EDT, [facility] Pharmacy Electronically, [facility] [...] 60 tablet, 1 Refills, Maintenance,02/22/23 10:08:00 EDT, [facility], 146, cm, 02/05/23 20:22:00 EDT, Height, [...] 0 Refills, Maintenance, 11/16/22 10:34:00 EST, Tablet, [facility], Partial fill upon [...] 0 Refills, Maintenance, 11/16/22 10:34:00 EST, Tablet, [facility], Partial fill upon patient request if [...] 11/16/22 10:34:00 EST, Route to Pharmacy Electronically, [facility], Partial fill upon patient request if the prescription is for a schedule I... Start Date: 11/16/22 Status: Ordered montelukast 10 mg oral tablet Refills 0, Maintenance, 01/06/23 18:05:00 EDT, Partial fill upon patient request if the prescription is for a schedule II opioid drug. Start Date: 01/06/23 Status: Ordered naproxen 375 mg (as sodium) oral tablet, extended release 1 tablet = 375 mg, By Mouth, 2 times a day, PRN Pain , Moderate, with food, # 60 tablet, 0 Refills,Acute 05/29/24 11:34:00 EDT, 05/22/23 11:32:00 EDT, ER Tablet, [facility], Partial fill upon patient request if the prescription is for a radha... Start Date: 05/22/23 Stop Date: 05/29/24 Status: Ordered nystatin topical 074441 u/gm cream 1 application, Topically, 2 times a day, # 15 Gm, 0 Refills, Maintenance, 01/05/23 15:04:00 EDT, Cream, [facility], Partial fill upon patient request if the prescription is for a schedule II opioid drug., 1 application Topically 2 times a da... Start Date: 01/05/23 Status: Ordered nystatin topical 766938 u/gm cream 0 Refills, Maintenance, 01/06/23 18:05:00 [...] 11/16/22 10:34:00 EST, Route to Pharmacy Electronically, [facility], Partial fill upon patient request if the prescription is for a schedule... Start Date: 11/16/22 Status: Ordered prazosin 1 mg oral capsule Refills 0, Maintenance, 01/06/23 18:05:00 EDT, Partial fill upon patient request if the prescription is for a schedule II opioid drug. Start Date: 01/06/23 Status: Ordered Protonix 20 mg oral delayed release tablet 1 tablet = 20 mg, By Mouth, Daily, # 14 tablet, 0 Refills, Maintenance, 05/06/23 2:02:00 EDT, CR Tablet, 164, cm, 05/05/23 22:39:00 EDT, Height, 99, kg, 05/05/23 22:39:00 EDT, Dry Weight Start Date: 05/06/23 Stop Date: 05/20/23 Status: Ordered Senna 8.6 mg oral tablet [...] Maintenance,11/16/22 10:34:00 EST, Route to Pharmacy Electronically, [facility], Partial fill upon patient request if [...] Team Personnel Name: Rudi Ruiz RN Position: [facility] ED RN W/OE and Tasks Member Role: Primary Care Nurse Name: Alicja Riggs RN Position: [facility] RN Member Role: Primary Care Nurse Name: Ros Fu RN Position: [facility] RN Member Role: Primary Care Nurse Name: Hilda Mccabe RN Position: [facility] RN Member Role: Primary Care Nurse Name: Rosana Kearney RN Position: [facility] SN RN Member Role: Primary Care Nurse Name: Wil Flood RN Position: [facility] RN Member Role: Primary Care Nurse Name: Gagandeep Sheldon RN Position: [facility] RN Member Role: Primary Care Nurse Name: Alba Daily RN Position: [facility] RN Member Role: Primary Care Nurse Name: Maribel Marquez NP Position: [facility] PCO Associate Professional Member Role: PCP Address: Address: [address] [place] [address]- Name: Jose Ramirez RN Position: [facility] RN Member Role: Primary Care Nurse Name: Brittany Butts RN Position: [facility] AMB Nurse Member Role: Primary Care Nurse Name: Pauline Mcadams RN Position: [facility] RN Member Role: Primary Care Nurse Name: Mary Sánchez RN Position: [facility] RN Member Role: Primary Care Nurse Name: Shama Rosado RN Position: [facility] RN Member Role: Primary Care Nurse Name: Jackie Snyder RN Position: [facility] RN Member Role: Primary Care Nurse Name: Jay Burks NP Position: Reference Physician Member Role: Primary Care Nurse Address: Address: [address] [place] [address] [address] Clinical & [place] [address]- [place] Name: Parvez Kaba MD Position: [facility] Renal MD Member Role: Lifetime Consulting Physician Address: Address: [address] [place] [address] [facility] [place] [address]- Name: Mirna Paul RN Position: [facility] OB RN Member Role: Primary Care Nurse Name: Latonya Rahman RN Position: [facility] Onco RN Member Role: Primary Care Nurse Name: Viki Gonzalez RN Position: [facility] RN Member Role: Primary Care Nurse Name: Claudia Presley RN Position: [facility] RN Member Role: Primary Care Nurse Name: Iris Villa RN Position: [facility] Hospital Bobbin Coil Winder Member Role: Primary Care Nurse Care Team Related Persons Name: JO-ANN ROMANELECTRICITY TRADING ANALYSTINDRA Address: [address] [place] [address] Name: PLEATER HANDGREGG Address: [address] [place] [address] Name: CARLOS PAZ Address: [address] [place] [address]
--- OUTSIDE RECORDS SUMMARY | 2023-07-16 14:41 | XMS_ITS | Continuity of Care Document ---
Author Name Unknown Organization [facility] Adult Address [address] [place] [address]- Care Team Providers Care Community Service Organization Director Name Role Phone Alma BARAHONA, Maribel Primary Care Physician [phone] Encounter [facility] Date(s): 08/23/22 - 09/29/22 [facility] Adult [address], [place] [address] Attending Physician: Maribel Marquez NP Allergies, Adverse [...] tablet, 1 Refills, Maintenance, 07/24/22 15:17:00 EDT, [facility], 165.2, cm, 07/19/22 10:30:00 EDT, Height, [...] a day, # 12 Gm, 1 Refills, [facility], 162, cm, 03/20/22 19:50:00 EDT, Height, [...] 07/21/22 14:07:00 EDT, Route to Pharmacy Electronically, [facility], Partial fill upon patient requestif the prescription is for a schedule II opioid kaela... Start Date: 07/21/22 Stop Date: 04/17/23 Status: Ordered metFORMIN 500 mg oral tablet See Instructions, TAKE 1 EACH BY MOUTH 2 TIMES A DAY, # 60 tablet, 5 Refills, 08/07/22 10:55:00 EDT, [facility], 165.2, cm, 07/19/22 10:30:00 EDT, Height, [...] 01/04/22 11:12:00 EDT, Route to Pharmacy Electronically, [facility], 165, cm, 12/19/21 10:41:00 EST, Height, [...] 01/19/22 10:48:00 EDT, Route to Pharmacy Electronically, [facility], Partial fill upon patient request if the prescription is for a schedule... Start Date: 01/19/22 Status: Ordered ProAir HFA 90 mcg/inh inhalation aerosol 2 puffs, Inhalation, 4 times a day, PRN as needed for wheezing, # 6.7 Gm, 1 Refills, Maintenance, 06/23/22 16:17:00 EDT, Aerosol, [facility], Partial fill upon patient request if [...] 07/28/22 7:45:00 EDT, Route to Pharmacy Electronically, [facility], 165.2, cm, 07/19/22 10:30:00 EDT, Height, [...] Refills, Maintenance, 05/09/21 8:45:00 EDT, SR Tablet, [facility], 165, cm, 04/11/21 7:42:00 EDT, Height, [...] Team Personnel Name: Rudi Ruiz RN Position: [facility] ED RN W/OE and Tasks Member Role: Primary Care Nurse Name: Alicja Riggs RN Position: [facility] RN Member Role: Primary Care Nurse Name: Ros Fu RN Position: [facility] RN Member Role: Primary Care Nurse Name: Hilda Mccabe RN Position: [facility] RN Member Role: Primary Care Nurse Name: Rosana Kearney RN Position: [facility] AMB Nurse Member Role: Primary Care Nurse Name: Wil Flood RN Position: [facility] RN Member Role: Primary Care Nurse Name: Gagandeep Sheldon RN Position: [facility] RN Member Role: Primary Care Nurse Name: Chip Morton Position: [facility] Outreach Member Role: Lifetime Consulting Physician Name: Alba Daily RN Position: [facility] RN Member Role: Primary Care Nurse Name: Maribel Marquez NP Position: [facility] PCO Associate Professional Member Role: PCP Address: Address: [address] [place] [id number]- Name: Jose Ramirez RN Position: [facility] RN Member Role: Primary Care Nurse Name: Brittany Butts RN Position: [facility] AMB Nurse Member Role: Primary Care Nurse Name: Mary Sánchez RN Position: [facility] RN Member Role: Primary Care Nurse Name: Shama Rosado RN Position: [facility] RN Member Role: Primary Care Nurse Name: Jackie Snyder RN Position: [facility] RN Member Role: Primary Care Nurse Name: Jay Burks NP Position: Reference Physician Member Role: Primary Care Nurse Address: Address: [address] [place] [address] Clinical & [place] [address]- [place] Name: Parvez Kaba MD Position: [facility] Renal MD Member Role: Lifetime Consulting Physician Address: Address: [address] [place] [address] [facility] [place] [address]- Name: Yoana Ledezma RN Position: [facility] RN Member Role: Primary Care Nurse Name: Mirna Paul RN Position: [facility] OB RN Member Role: Primary Care Nurse Name: Latonya Rahman RN Position: [facility] Onco RN Member Role: Primary Care Nurse Name: Claudia Presley RN Position: [facility] RN Member Role: Primary Care Nurse Name: Iris Villa RN Position: [facility] Hospital Dressmaker Garment Fitter Member Role: Primary Care Nurse Care Team Related Persons Name: JO-ANN ROMANPAYROLL DIRECTORINDRA Address: [address] [place] [address] Name: AUDIO VIDEO REPAIRERGREGG Address: [address] [place] [address] Name: CARLOS PAZ Address: home [address] [place] [address]
--- OUTSIDE RECORDS SUMMARY | 2023-07-16 14:41 | XMS_ITS | Continuity of Care Document ---
Author Name Unknown Organization [facility] Adult Address [address] [place] [address]- Care Team Providers Care Finishing Manager Name Role Phone Maribel Marquez NP Primary Care Physician En[place] [facility] Date(s): 05/22/23 - 05/29/23 [facility] Adult [address] [place] [address]- Attending Physician: Néstor Burnette MD Allergies, Adverse Reactions, Alerts Substance Reaction [...] each, 5 Refills, Maintenance, 05/22/23 11:32:00 EDT, [facility], Partial fill upon patient request if the prescription is for a schedule II opioid drug., 2 puffs Inhal... Start Date: 05/22/23 Stop Date: 05/22/24 Status: Ordered albuterol CFC free 90 mcg/inh inhalation aerosol 90 mcg, 1, puffs, Inhalation, Every 4 hours, PRN, # 6.7 Gm, Refills 0, Tot. Refills 0, Maintenance,11/16/22 10:33:00 EST, Inhaler, Route to Pharmacy Electronically, NCPDP_[id number], [facility], 163, cm, 11/16/22 9:43:00 EST, Height, 97.3,... Start Date: 11/16/22 Status: Ordered atorvastatin 10 mg oral tablet 1 tablet = 10 mg, By Mouth, Daily at bedtime, # 30 tablet, 0 Refills, Maintenance, 11/16/22 10:33:00 EST, Tablet, [facility], Partial fill upon [...] 11/16/22 10:33:00 EST, Route to Pharmacy Electronically, [facility], Partial fill upon patientrequest if [...] 0 Refills, Maintenance, 11/16/22 10:33:00 EST, Tablet, [facility], Partial fill upon patient request if the prescriptionis for a schedule II opioid drug., 163, cm, 02/02/2... Start Date: 11/16/22 Status: Ordered chlorproMAZINE 50 [...] 11/16/22 10:34:00 EST, Route to Pharmacy Electronically, [facility], Partial fill upon patient request if the prescription is for a schedule II opioid d... Start Date: 11/16/22 Stop Date: 08/13/23 Status: Ordered FLUoxetine 20 mg oral capsule 80 mg, 4, capsule, By Mouth, Daily in AM, # 120 capsule, Refills 0, Tot. Refills 0, Maintenance, 11/16/22 10:34:00 EST, Route to Pharmacy Electronically, [facility], [...] 11/16/22 10:34:00 EST, Route to Pharmacy Electronically, [facility], Partial fill upon patientrequest if [...] 02/12/23 10:51:00 EDT, Route to Pharmacy Electronically, [facility], Partial fill upon patient requestif [...] 60 tablet, 1 Refills, Maintenance,02/22/23 10:08:00 EDT, [facility], 146, cm, 02/05/23 20:22:00 EDT, Height, [...] 0 Refills, Maintenance, 11/16/22 10:34:00 EST, Tablet, [facility], Partial fill upon [...] 0 Refills, Maintenance, 11/16/22 10:34:00 EST, Tablet, [facility], Partial fill upon patient request if [...] 11/16/22 10:34:00 EST, Route to Pharmacy Electronically, [facility], Partial fill upon patient request if [...] 11:34:00 EDT, 05/22/23 11:32:00 EDT, ER Tablet, [facility], Partial fill upon patient request if the prescription is for a radha... Start Date: 05/22/23 Stop Date: 05/29/24 Status: Ordered nystatin topical 581179 u/gm cream 1 application, Topically, 2 times a day, # 15 Gm, 0 Refills, Maintenance, 01/05/23 15:04:00 EDT, Cream, [facility], Partial fill upon patient request if the prescription is for a schedule II opioid drug., 1 application Topically 2 times a da... Start Date: 01/05/23 Status: Ordered nystatin topical 153581 u/gm cream 0 Refills, Maintenance, 01/06/23 18:05:00 [...] 11/16/22 10:34:00 EST, Route to Pharmacy Electronically, [facility], [...] Maintenance,11/16/22 10:34:00 EST, Route to Pharmacy Electronically, [facility], Partial fill upon patient request if [...] Most recent to oldest [Reference Range]: 1 Height 164 cm (05/22/23 10:57 AM) Weight 102.1 kg (05/22/23 10:57 AM) Oxygen Saturation [94-100 %] 97 % (05/22/23 10:57 AM) Pulse Rate [55-90 bpm] 95 bpm *H* (05/22/23 10:57 AM) Body Mass Index [18.5-24.99 kg/m2] 37.96 kg/m2 *>HHI* (05/22/23 10:57 AM) Blood Pressure [90-138/55-84 mm Hg] 129/ 85mm Hg (05/22/23 10:57 AM) Mode of Delivery (Oxygen) Room air (05/22/23 10:57 AM) Blood pressure sites Arm, left (05/22/23 10:57 AM) Weight Obtained Via Standing scale (05/22/23 10:57 AM) Social History Social History Type Response Smoking Status 10 or more cigarette s (1/2 pack or more)/day in last 30 days; Type: Cigarettes; Other: Reports smoking 1/2-1 packs/day, ending on level of stress; Started at age: 25; entered on: 11/18/22 Sex Note * Chel Bazan: PERFORM, SIGN, VERIFY Event Display: Patient Education/Instruction Authored Date: [id number] [facility] *[facility] Clinical Summary Name IGOR KAUFMAN Age 47 Years 1975 PCP Maribel Marquez NP PCP Visit Date 05/22/2023 10:49:00 Additional Instructions: Scheduled Appointments?? Future Appointments ?*[facility] [address],??[address] ?Phone:??--?Fax:??-- ?Appt. Date:??07/24/2023?11:30 AM ?Scheduled Provider:??Maribel Marquez NP Follow-Up Instructions ?? Diagnosis Medications: Please continue your medications until treatment is completed or stopped by your provider. Discuss any questions related to medications with your provider. New Medications [facility], [address] [place] [phone], [phone] Naproxen (naproxen 375 mg (as sodium) oral tablet, extended release) 1 tab(s) Oral twice a day as needed Pain , Moderate. with food. Refills: 0. Next Dose: Medications to Continue Taking That Have Changed [facility], [address] [place] [address] [phone], [phone] - Albuterol (Albuterol (Eqv-Ventolin HFA) 90 mcg/inh inhalation aerosol) 2 puff(s) Inhalation every6 hours as needed Wheezing/Shortness of Breath. Refills: 5. Next Dose: These medications were not printed or sent to your pharmacy - Albuterol (albuterol CFC free 90 mcg/inh inhalation aerosol) 1 puff(s) Inhalation every 4 hours as needed Wheezing/Shortness of Breath. Refills: 0. Next Dose: Medications to Continue with No Changes These medications were not printed or sent to your pharmacy Atorvastatin (atorvastatin 10 mg oral tablet) Next Dose: Atorvastatin (atorvastatin 10 mg oral tablet) 1 tab(s) Oral Daily at Bedtime. Refills: 0. Next Dose: Benztropine (benztropine 1 mg oral tablet) Next Dose: Benztropine (benztropine 1 mg oral tablet) 1 tab(s) Oral twice a day. Refills: 0. Next Dose: Cephalexin (cephalexin monohydrate 500 mg oral capsule) 1 capsule Oral 4 times a day for 7 Days. Next Dose: ChlorproMAZINE (chlorproMAZINE 50 mg oral tablet) Next Dose: ChlorproMAZINE (chlorproMAZINE 50 mg oral tablet) 1 tab(s) Oral 3 times a day as needed Anxiety. Refills: 0. Next Dose: Ferrous Sulfate (ferrous sulfate 325 mg oral enteric coated tablet) 1 tab(s) Oral Daily for 90 Days. Refills: 2. Next Dose: Fluoxetine (FLUoxetine 20 mg oral capsule) 4 capsule Oral Daily in the morning. Refills: 0. Next Dose: Fluoxetine (FLUoxetine 40 mg oral capsule) Next Dose: Fluphenazine (fluPHENAZine 5 mg oral tablet) Next Dose: Fluphenazine (fluPHENAZine 5 mg oral tablet) 1 tab(s) Oral twice a day. Refills: 0. Next Dose: Lactulose (lactulose 10 g/15 mL oral and rectal liquid) Next Dose: Lisinopril (lisinopril 5 mg oral tablet) Next Dose: Lisinopril (lisinopril 5 mg oral tablet) 1 tab(s) Oral Daily. Next Dose: Lisinopril (lisinopril 5 mg oral tablet) 1 tab(s) Oral Daily. Refills: 0. Next Dose: Melatonin (Melatonin 5 mg oral tablet) 2 tab(s) Oral Daily at Bedtime as needed NEEDED FOR SLEEP. Refills: 1. Next Dose: Metformin (metFORMIN 500 mg oral tablet) Next Dose: Metformin (metFORMIN 500 mg oral tablet) 1 Each Oral twice a day. Refills: 0. Next Dose: Metformin (metFORMIN 500 mg oral tablet) 1 tab(s) Oral twice a day. Next Dose: Mirtazapine (mirtazapine 15 mg oral tablet) 0.5 tab(s) Oral Daily at Bedtime. Refills: 0. Next Dose: Mirtazapine (mirtazapine 15 mg oral tablet) 1 tab(s) Oral Daily at Bedtime. Next Dose: Mirtazapine (mirtazapine 7.5 mg oral tablet) Next Dose: Montelukast (montelukast 10 mg oral tablet) 1 tab(s) Oral Daily at Bedtime. Refills: 0. Next Dose: Montelukast (montelukast 10 mg oral tablet) 1 tab(s) Oral Daily. Next Dose: Montelukast (montelukast 10 mg oral tablet) Next Dose: Nystatin Topical (nystatin topical 662373 u/gm cream) Next Dose: Nystatin Topical (nystatin topical 602015 u/gm cream) 1 [place] Topically twice a day. Refills: 0. Next Dose: Pantoprazole (pantoprazole 40 mg oral delayed release tablet) 1 tab(s) Oral Daily. Next Dose: Pantoprazole (pantoprazole 40 mg oral delayed release tablet) 40 Milligram Oral Daily for 30 Days. Refills: 0. Next Dose: Pantoprazole (pantoprazole 40 mg oral delayed release tablet) Next Dose: Pantoprazole (Protonix 20 mg oral delayed release tablet) 1 tab(s) Oral Daily for 14 Days. Refills:0. Next Dose: Prazosin (prazosin 1 mg oral capsule) 4 capsule Oral Daily at Bedtime. Refills: 0. Next Dose: Prazosin (prazosin 1 mg oral capsule) Next Dose: Senna (Senna 8.6 mg oral tablet) Next Dose: Trazodone (traZODone 150 mg oral tablet) Next Dose: Trazodone (traZODone 50 mg oral tablet) 3 tab(s) Oral Daily at Bedtime. Refills: 0. Next Dose: Allergy Info:?? Geodon; Seafood; Zithromax; Macrobid; sulfa drugs; predniSONE; penicillin; lithium;codeine Medications Given This Visit Future Orders ?No future orders Vital Signs Height 164 cm Weight 102.1 kg BMI 37.96 kg/m2 Blood Pressure 129 mm Hg/85 mm Hg Temperature Pulse Rate 95 bpm Respiratory Rate 02 Sat Mode of Delivery 97 %/Room air You can now view a summary of your hospital visit from the comfort of your home through a free online portal called [employer]. [employer] is a website that allows you to securely view your medical information including discharge summary, medications and follow-up visits. ??You can alsosend a secure electronic message to your doctor???s office to request appointments, renew medications or just ask a question. You can enroll at [email or web address] or register during your next office visit. Disclaimer:?? The information provided is of a general nature and is intended to be used in conjunction with the recommendations and advice of your health care practitioner. ??Every effort has been made to ensure that the information provided is accurate and complete at the time it is provided to you however, as your needs change, or, as new ??information becomes available, different or additional instructions may be required. If you have questions, please consult with your primary care provider or pharmacist, as appropriate. ??This information is not intended to serve as substitution for assessment and evaluation by a qualified health care provider. If you do not have a primary care provider, you may find a [facility] provider by calling [facility] Link at [phone]. For information about the plan of care including goals and instructions for your diagnosis, please see the patient education orders section of this document. Patient Education Materials?? The content of this educational material or handout may have been modified, supplemented, or adapted from its original content and format to support your individualized medical care. Patient Care team information Care Team Personnel Name: Rudi Ruiz RN Position: [facility] RN W/OE and Tasks Member Role: Primary Care Nurse Name: Alicja Riggs RN Position: [facility] RN Member Role: Primary Care Nurse Name: Ros Fu RN Position: [facility] RN Member Role: Primary Care Nurse Name: Hilda Mccabe RN Position: [facility] RN Member Role: Primary Care Nurse Name: Rosana Kearney RN Position: [facility] SN RN Member Role: Primary Care Nurse Name: Wil Flood RN Position: [facility] RN Member Role: Primary Care Nurse Name: Gagandeep Sheldon RN Position: [facility] RN Member Role: Primary Care Nurse Name: Alba Daily RN Position: [facility] RN Member Role: Primary Care Nurse Name: Maribel Marquez NP Position: [facility] PCO Associate Professional Member Role: PCP Address: Address: [address] [place] [address]- Name: Jose Ramirez RN Position: [facility] RN Member Role: Primary Care Nurse Name: Brittany Butts RN Position: [facility] AMB Nurse Member Role: Primary Care Nurse Name: Pauline Mcadams RN Position: [facility] RN Member Role: Primary Care Nurse Name: Mary Sánchez RN Position: [facility] RN Member Role: Primary Care Nurse Name: Shama Rosado RN Position: [facility] RN Member Role: Primary Care Nurse Name: Jackie Snyder RN Position: [facility] RN Member Role: Primary Care Nurse Name: Jay Burks NP Position: Reference Physician Member Role: Primary Care Nurse Address: Address: [address] [place] [address] Clinical [facility] [place] [address]- Name: Parvez Kaba MD Position: [facility] Renal MD Member Role: Lifetime Consulting Physician Address: Address: [address] [place] [address] [facility] [place] [address]- Name: Mirna Paul RN Position: [facility] OB RN Member Role: Primary Care Nurse Name: Latonya Rahman RN Position: [facility] Onco RN Member Role: Primary Care Nurse Name: Viki Gonzalez RN Position: [facility] RN Member Role: Primary Care Nurse Name: Claudia Presley RN Position: [facility] RN Member Role: Primary Care Nurse Name: Iris Villa RN Position: [facility] Hospital Agile Business Analyst Member Role: Primary Care Nurse Care Team Related Persons Name: JO-ANN ROMANFUEL CELL BUILDERINDRA Address: [address] [place] [address] Name: ENVIRONMENTAL PROFESSIONALGREGG Address: [address] [place] [address] Name: CARLOS PAZ Address: home [address] [place] [address]
--- OUTSIDE RECORDS SUMMARY | 2023-07-16 14:41 | XMS_ITS | Continuity of Care Document ---
Author Name Unknown Organization [facility] Adult Address [address] [place] [address]- Care Team Providers Care Pediatric Audiologist Name Role Phone Maribel Marquez NP Primary Care Physician Encounter [facility] [place] Date(s): 06/27/21 - 07/04/21 [facility] [address] [place] [id number]- Encounter Diagnosis Medicare annual wellness visit, subsequent(Discharge Diagnosis) - 06/27/21 Adult general medical exam(Discharge Diagnosis) - 06/27/21 Anemia, iron deficiency(Discharge Diagnosis) - 06/27/21 Asthma(Discharge Diagnosis) - 06/27/21 Borderline personality disorder(Discharge Diagnosis) - 06/27/21 Chronic post-traumatic stress disorder (PTSD)(Discharge Diagnosis) - 06/27/21 Depression, major, recurrent, severe with psychosis(Discharge Diagnosis) - 06/27/21 Nicotine dependence(Discharge Diagnosis) - 06/27/21 Type 2 diabetes mellitus(Discharge Diagnosis) - 06/27/21 Comprehensive diabetic foot examination, type 2 DM, encounter for(Discharge Diagnosis) - 06/27/21 Attending Physician: Maribel Marquez NP Allergies, Adverse Reactions, Alerts Substance Reaction Severity Status codeine Active lithium 1 Active penicillin Active predniSONE Active sulfa drugs Active Macrobid Active Zithromax Active Geodon Active Seafood Active 1pt reports 01/17/13 started taking lithium [...] 0 Refills, Maintenance, 06/28/21 10:16:00 EDT, Tablet, [facility], Partial fill upon patient request if [...] 0 Refills, Maintenance, 02/09/20 10:08:00 EDT, Tablet, [facility], 165, cm, 02/08/20 19:47:00 EDT, Height, 104.5, kg,02/07/20 8:15:00 EDT, Dry Weight Start Date: 02/09/20 Status: Ordered doxazosin 1 mg oral tablet 3 mg, 3, tablet, By Mouth, Daily at bedtime, # 90 tablet, Refills 0, Tot. Refills 0, Maintenance, 07/22/20 18:41:00 EDT, Route to Pharmacy Electronically, [facility], 163.5, cm, 07/22/20 18:29:00 EDT, Height, 102.5, kg, 07/18/20 21:04:00 EDT... Start Date: 07/22/20 Status: Ordered ferrous sulfate 325 mg oral enteric coated tablet 325 mg, 1, tablet, By Mouth, Daily, # 90 tablet, Refills 2, Tot. Refills 2, Maintenance, 04/11/21 9:22:00 EDT, Route to Pharmacy Electronically, [facility], Partial fill upon patient request if the prescription is for a schedule II opioid dr... Start Date: 04/11/21 Stop Date: 01/06/22 Status: Ordered Flovent HFA 110 mcg/inh inhalation aerosol 2 puffs = 220 mcg, Inhalation, 2 times a day, # 3 each, 3 Refills, Maintenance, 05/09/21 8:41:00 EDT, Aerosol, [facility], 165, cm, 04/11/21 7:42:00 EDT, Height, 102.6, kg, 02/12/21 12:14:00 EDT, Dry Weight Start Date: 05/09/21 Status: Ordered Haldol Decanoate decanoate 100 mg/ml injectable solution = 100 mg, Intramuscular, Every 28 days, last dose given on 09/17/2020. Next due 10/15/20., # 1 each, 0Refills, Soft Stop, 07/22/20 18:42:00 EDT, Solution, [facility], 163.5, cm, 07/22/20 18:29:00 EDT, Height, 102.5, kg, 07/18/20 21:04:00 EDT,... Start Date: 07/22/20 Status: Ordered lisinopril 5 mg oral tablet 5 mg, 1, tablet, By Mouth, Daily, # 90 tablet, Refills 1, Tot. Refills 1, Maintenance, 05/09/21 8:43:00 EDT, Route to Pharmacy Electronically, [facility], 165, cm, 04/11/21 7:42:00 EDT, Height, 102.6, kg, 02/12/21 12:14:00 EDT, Dry Weight Start Date: 05/09/21 Status: Ordered loratadine 10 mg oral tablet 10 mg, 1, tablet, By Mouth, Daily, # 90 tablet, Refills 3, Tot. Refills 3, Maintenance, 04/11/21 9:38:00 EDT, Route to Pharmacy Electronically, [facility], Partial fill upon patient requestif the prescription is for a schedule II opioid kaelaRobi.. Start Date: 04/11/21 Stop Date: 04/06/22 Status: [...] each, 1 Refills, Maintenance, 05/09/21 8:43:00 EDT,Tablet, [facility], Partial fill upon patient request if the prescription is for a schedule II opioid drug., 165, cm, 04/11/21 7:42:00 EDT, H... Start Date: 05/09/21 Stop Date: 11/05/21 Status: Ordered montelukast 10 mg oral tablet 10 mg, 1, tablet, By Mouth, Daily, # 90 tablet, Refills 1, Tot. Refills 1, Maintenance, 05/09/21 8:45:00 EDT, Route to Pharmacy Electronically, [facility], 165, cm, 04/11/21 7:42:00 EDT, Height, 102.6, kg, 02/12/21 12:14:00 EDT, Dry Weight Start Date: 05/09/21 Status: Ordered naltrexone 50 mg oral tablet 0 Refills, Maintenance, 05/04/21 9:26:00 EDT, Partial fill upon patient request if the prescriptionis for a schedule II opioid drug. Start Date: 05/04/21 Status: Ordered pantoprazole 40 mg oral delayed release tablet See Instructions, TAKE 1 TABLET BY MOUTH TWICE DAILY, # 60 tablet, 5 Refills, Maintenance, 165, cm,04/11/21 7:42:00 EDT, Height, 102.6, kg, 02/12/21 12:14:00 EDT, Dry Weight Start Date: 04/17/21 Status: Ordered polyethylene glycol 3350 oral powder for reconstitution = 17 Gm, By Mouth, Daily, PRN NEEDED FOR CONSTIPATION INSTR, DISSOLVE IN WATER BEFORE TAKING, # 237 Gm, 5 Refills, Acute, 05/10/21 11:59:00 EDT, [facility], 15, TAKE 17 GM BY MOUTH [...] 0 Refills, Maintenance, 02/09/20 10:05:00 EDT, Inhaler, [facility], 165, cm, 02/08/20 19:47:00 EDT, Height, 104.5, kg, 02/07/20 8:15:00 EDT, Dry Weight Start Date: 02/09/20 Stop Date: 03/10/20 Status: Ordered verapamil 240 mg/12 hours oral tablet, extended release 1 tablet = 240 mg, By Mouth, Daily at bedtime, # 90 tablet, 1 Refills, Maintenance, 05/09/21 8:45:00 EDT, SR Tablet, [facility], 165, cm, 04/11/21 7:42:00 EDT, Height, [...] dependence(Confirmed) Active Type 2 diabetes mellitus(Confirmed) Active Diagnosis Diagnosis Type Effective Dates Health Status Clinical Service Informant Medicare annual wellness visit, subsequent Discharge Diagnosis 06/27/21 Adult general medical exam Discharge Diagnosis 06/27/21 Anemia, iron deficiency Discharge Diagnosis 06/27/21 Asthma Discharge Diagnosis 06/27/21 Borderline personality disorder Discharge Diagnosis 06/27/21 Chronic post-traumatic stress disorder (PTSD) Discharge Diagnosis 06/27/21 Depression, major, recurrent, severe with psychosis Discharge Diagnosis 06/27/21 Nicotine dependence Discharge Diagnosis 06/27/21 Type 2 diabetes mellitus Discharge Diagnosis 06/27/21 Comprehensive diabetic foot examination, type 2 DM, encounter for Discharge Diagnosis 06/27/21 Vital Signs Most recent to oldest [Reference Range]: 1 Height 165 cm (06/27/21 10:33 AM) Weight 94.9 kg (06/27/21 10:33 AM) Oxygen Saturation [94-100 %] 97 % (06/27/21 10:33 AM) Pulse Rate [55-90 bpm] 119 bpm *H* (06/27/21 10:33 AM) Body Mass Index [18.5-24.99] 34.86 *>HHI* (06/27/21 10:33 AM) Blood Pressure [90-138/55-84 mm Hg] 103/ 72mm Hg (06/27/21 10:33 AM) Temperature [96.8-100.4 DegF] 98.4 DegF (06/27/21 10:33 AM) Blood pressure sites Arm, left (06/27/21 10:33 AM) Temperature Route Oral (06/27/21 10:33 AM) Weight Obtained Via Standing scale (06/27/21 10:33 AM) Social History Social History Type Response Smoking Status 10 or more cigarette s (1/2 pack or more)/day in last 30 days; Type: Cigarettes; Other: Reports smoking 1/2-1 packs/day, ending on level of stress; Started at age: 25; entered on: 12/31/20 Sex
--- OUTSIDE RECORDS SUMMARY | 2023-07-16 14:41 | XMS_ITS | Continuity of Care Document ---
Author Name Unknown Organization [facility] ter Address [address] [place] [id number]- Care Team Providers Care Online Content Developer Name Role Phone Maribel Marquez NP Primary Care Physician Encounter [facility] [place] Date(s): 02/23/23 - 02/24/[address] [address]- Encounter Diagnosis Hallucination(Final) - 02/23/23 Self-cutting of wrist(Final) - 02/23/23 Depression(Final) - 02/23/23 Suicidal ideation(Final) - 02/23/23 Discharge Disposition: A-D/C Home Attending Physician: Rolando Amor MD Admitting Physician: Rolando Amor MD Referring Physician: Not on Staff, Referring MD Allergies, Adverse Reactions, Alerts Substance Reaction Severity Status codeine Active Macrobid Active Geodon Active lithium 1 Active penicillin Active predniSONE Active sulfa drugs Active Zithromax Active Seafood Active 1pt reports 01/17/13 started [...] 10:33:00 EST, Inhaler, Route to Pharmacy Electronically, [id number]_[id number], [facility], 163, cm, 11/16/22 9:43:00 EST, Height, 97.3,... Start Date: 11/16/22 Status: Ordered atorvastatin 10 mg oral tablet 1 tablet = 10 mg, By Mouth, Daily at bedtime, # 30 tablet, 0 Refills, Maintenance, 11/16/22 10:33:00 EST, Tablet, [facility], Partial fill upon patient request [...] 11/16/22 10:33:00 EST, Route to Pharmacy Electronically, [facility], Partial fill upon patientrequest if [...] 0 Refills, Maintenance, 11/16/22 10:33:00 EST, Tablet, [facility], Partial fill upon patient request [...] 11/16/22 10:34:00 EST, Route to Pharmacy Electronically, [facility], Partial fill upon patient request if the prescription is for a schedule II opioid d... Start Date: 11/16/22 Stop Date: 08/13/23 Status: Ordered FLUoxetine 20 mg oral capsule 80 mg, 4, capsule, By Mouth, Daily in AM, # 120 capsule, Refills 0, Tot. Refills 0, Maintenance, 11/16/22 10:34:00 EST, Route to Pharmacy Electronically, [facility], Partial fill upon patient request [...] 11/16/22 10:34:00 EST, Route to Pharmacy Electronically, [facility], Partial fill upon patientrequest if [...] 02/12/23 10:51:00 EDT, Route to Pharmacy Electronically, [facility], Partial fill upon patient requestif the prescription is for a schedule II opioid kaela... Start Date: 02/12/23 Status: Ordered lisinopril 5 mg oral tablet 5 mg, Tablet, By Mouth, 02/24/23 9:00:00 EDT Start Date: 02/24/23 Stop Date: 02/24/23 Status: Completed lisinopril 5 mg oral tablet Refills 0, Maintenance, 01/06/23 18:05:00 EDT, Partial fill upon patient request if the prescription is for a schedule II opioid drug. Start Date: 01/06/23 Status: Ordered Melatonin 5 mg oral tablet 2 tablet, By Mouth, Daily at bedtime, PRN NEEDED FOR SLEEP, # 60 tablet, 1 Refills, Maintenance,02/22/23 10:08:00 EDT, [facility], 146, cm, 02/05/23 20:22:00 EDT, Height, 115, kg, 02/05/23 20:22:00 EDT, Dry Weight Start Date: 02/22/23 Stop Date: 02/23/24 Status: Ordered metFORMIN 500 mg oral tablet 1 each = 500 mg, By Mouth, 2 times a day, # 60 tablet, 0 Refills, Maintenance, 11/16/22 10:34:00 EST, Tablet, [facility], Partial fill upon patient request [...] 0 Refills, Maintenance, 11/16/22 10:34:00 EST, Tablet, [facility], Partial fill upon patient request [...] 11/16/22 10:34:00 EST, Route to Pharmacy Electronically, [facility], Partial fill upon patient request if the prescription is for a schedule I... Start Date: 11/16/22 Status: Ordered montelukast 10 mg oral tablet Refills 0, Maintenance, 01/06/23 18:05:00 EDT, Partial fill upon patient request if the prescription is for a schedule II opioid drug. Start Date: 01/06/23 Status: Ordered nystatin topical 522286 u/gm cream 1 application, Topically, 2 times a day, # 15 Gm, 0 Refills, Maintenance, 01/05/23 15:04:00 EDT, Cream, [facility], Partial fill upon patient request if the prescription is for a schedule II opioid drug., 1 application Topically 2 times a da... Start Date: 01/05/23 Status: Ordered nystatin topical 154361 u/gm cream 0 Refills, Maintenance, 01/06/23 18:05:00 [...] 11/16/22 10:34:00 EST, Route to Pharmacy Electronically, [facility], Partial fill upon patient request if [...] Maintenance,11/16/22 10:34:00 EST, Route to Pharmacy Electronically, [facility], Partial fill upon patient request if [...] 1 2 3 Oxygen Saturation [94-100 %] 97 % (02/24/23 12:05 PM) 95 % (02/24/23 6:25 AM) 97 % (02/23/23 7:23 PM) Pulse Rate [55-90 bpm] 84 bpm (02/24/23 12:05 PM) 76 bpm (02/24/23 6:25 AM) 108 bpm *H* (02/23/23 7:23 PM) Blood Pressure [90-138/55-84 mm Hg] 144/102mm Hg *H* (02/24/23 12:05 PM) 140/101mm Hg *H* (02/24/23 12:04 PM) 119/74mm Hg (02/24/23 6:25 AM) Respiratory Rate [16-30 br/min] 18 br/min (02/24/23 12:05 PM) 24 br/min (02/24/23 6:25 AM) 18 br/min (02/23/23 7:23 PM) Temperature [96.8-100.4 DegF] 97.8 DegF (02/24/23 12:05 PM) 98.5 DegF (02/24/23 6:25 AM) 98.8 DegF (02/23/23 7:23 PM) Mode of Delivery (Oxygen) Room air (02/24/23 12:05 PM) Room air (02/24/23 6:25 AM) Room air (02/23/23 7:23 PM) Blood pressure sites Arm, right (02/24/23 12:05 PM) Arm, left (02/24/23 6:25 AM) Arm, left (02/23/23 7:23 PM) Temperature Route Oral (02/24/23 12:05 PM) Oral (02/24/23 6:25 AM) Oral (02/23/23 7:23 PM) Social History Social History Type Response Smoking Status 10 or more cigarette s (1/2 pack or more)/day in last 30 days; Type: Cigarettes; Other: Reports smoking 1/2-1 packs/day, ending on level of stress; Started at age: 25; entered on: 11/18/22 Sex Patient Care team information Care Team Personnel Name: Rudi Ruiz RN Position: [facility] ED RN W/OE and Tasks Member Role: Primary Care Nurse Name: Alicja Riggs RN Position: [facility] RN Member Role: Primary Care Nurse Name: Ros Fu RN Position: [facility] RN Member Role: Primary Care Nurse Name: Hilda Mccabe RN Position: [facility] RN Member Role: Primary Care Nurse Name: Rosana Kearney RN Position: [facility] SN RN Member Role: Primary Care Nurse Name: Wil Flood RN Position: [facility] RN Member Role: Primary Care Nurse Name: Gagandeep Sheldon RN Position: [facility] RN Member Role: Primary Care Nurse Name: Chip Morton Position: [facility] Outreach Member Role: Lifetime Consulting Physician Name: Alba Daily RN Position: [facility] RN Member Role: Primary Care Nurse Name: Maribel Marquez NP Position: [facility] PCO Associate Professional Member Role: PCP Address: Address: [address] [place] [address]- [place] Name: Jose Ramirez RN Position: [facility] RN Member Role: Primary Care Nurse Name: Brittany Butts RN Position: [facility] AMB Nurse Member Role: Primary Care Nurse Name: Pauline Mcadams RN Position: [facility] RN Member Role: Primary Care Nurse Name: Mary Sánchez RN Position: [facility] RN Member Role: Primary Care Nurse Name: Shama Rosado RN Position: [facility] RN Member Role: Primary Care Nurse Name: Jackie Snyder RN Position: [facility] RN Member Role: Primary Care Nurse Name: Jay Burks NP Position: Reference Physician Member Role: Primary Care Nurse Address: Address: [address] [place] [address] [facility] [place] [address]- [place] Name: Parvez Kaba MD Position: [facility] Renal MD Member Role: Lifetime Consulting Physician Address: Address: [address] [place] [address] [facility] [place] [address]- Name: Mirna Paul RN Position: [facility] OB RN Member Role: Primary Care Nurse Name: Latonya Rahman RN Position: [facility] Onco RN Member Role: Primary Care Nurse Name: Viki Gonzalez RN Position: [facility] RN Member Role: Primary Care Nurse Name: Claudia Presley RN Position: [facility] RN Member Role: Primary Care Nurse Name: Iris Villa RN Position: [facility] Hospital Telephone Surveyor Member Role: Primary Care [facility] Attending Position: [facility] ED Attendings Patient Name: Rolando Amor MD Position: [facility] ED Medicine MD Member Role: Admitting Physician Address: Address: [address] [place] [phone]- [place] Name: Ofelia Peres RN Position: [facility] ED RN W/OE and Tasks Member Role: Patient Care Provider Care Team Related Persons Name: LISBETH- SINKER PULLERINDRA Address: home [address] [place] [address] Name: SWITCHBOARD RECEPTIONISTGREGG Address: home [address] [place] [address] Name: CARLOS PAZ Address: home [address] [place] [address]
--- OUTSIDE RECORDS SUMMARY | 2023-07-16 14:41 | XMS_ITS | Continuity of Care Document ---
Author Name Unknown Organization [facility] Address [address] [place] [address]- Care Team Providers Care Ent Consultant Name Role Phone Maribel Marquez NP Primary Care Physician [phone] Encounter [facility] Date(s): 01/04/22 - 02/03/22 [facility] [address], [place] [address] Allergies, Adverse Reactions, Alerts Substance Reaction Severity [...] tablet, 0 Refills, Maintenance, 01/04/22 11:12:00 EDT, [facility], Partial fill upon patient request if [...] Tablet, ; Start Date: 11/08/21 Status: Ordered docusate-senna 50 mg-8.6 mg oral capsule 1 capsule, By Mouth, 2 times a day, for 5 days, Hold if bowel movement to 2 times per day/diarrhea,# 10 capsule, 0 Refills, Acute 02/04/22 14:09:00 EDT, 01/30/22 14:09:00 EDT, Capsule, [facility], Partial fill upon patient request if the pr... Start Date: 01/30/22 Stop Date: 02/04/22 Status: Ordered ferrous sulfate 325 mg oral enteric coated tablet 325 mg, 1, tablet, By Mouth, Daily, # 90 tablet, Refills 2, Tot. Refills 2, Maintenance, 04/11/21 9:22:00 EDT, Route to Pharmacy Electronically, [facility], Partial fill upon patient request if the prescription is for a schedule II opioid . Start Date: 04/11/21 Stop Date: 01/06/22 Status: Ordered Flovent HFA 110 mcg/inh inhalation aerosol 2 puffs, Inhalation, 2 times a day, # 12 Gm, 2 Refills, [facility], 165, cm, 12/19/21 10:41:00 EST, Height, [...] 04/04/22 12:34:00 EDT, 01/04/22 12:34:00 EDT, Tablet, [facility], Partial fill upon patient request if the prescription is f... Start Date: 01/04/22 Stop Date: 04/04/22 Status: Ordered metFORMIN 500 mg oral tablet See Instructions, TAKE 1 EACH BY MOUTH 2 TIMES A DAY, # 60 tablet, 5 Refills, [facility],165, cm, 01/19/22 13:55:00 EDT, Height, 103, kg, 11/26/21 8:59:00 EST, Dry Weight Start Date: 02/03/22 Status: Ordered MiraLax oral powder for reconstitution = 17 Gm, By Mouth, 2 times a day, PRN Constipation, dissolve in water before taking, # 255 Gm, 0 Refills, Acute 02/13/22 14:30:00 EDT, 01/30/22 14:10:00 EDT, REC Powder, [facility], Partialfill upon patient request if the [...] 01/04/22 11:12:00 EDT, Route to Pharmacy Electronically, [facility], 165, cm, 12/19/21 10:41:00 EST, Height, 103, kg, 11/26/21 8:59:00 EST, . Start Date: 01/04/22 Status: Ordered nicotine 21 mg/24 hr transdermal film, extended release 1 patch, Topically, Daily, for 30 days, # 30 patch, 0 Refills, Acute 02/18/22 14:31:00 EDT, 01/19/22 14:31:00 EDT, Patch, [facility], Partial fill upon patient request if the prescription is for a schedule II opioid drug., 1 patch Topically... Start Date: 01/19/22 Stop Date: 02/18/22 Status: Ordered pantoprazole 40 mg oral delayed release tablet 1 tablet = 40 mg, By Mouth, Daily, Maintenance, 01/30/22 13:58:00 EDT, [facility] Tablet Start Date: 01/30/22 Status: Ordered prazosin 1 mg oral capsule 4 mg, 4, capsule, By Mouth, Daily at bedtime, # 120 capsule, Refills 5, Tot. Refills 5, Maintenance, 01/19/22 10:48:00 EDT, Route to Pharmacy Electronically, [facility], Partial fill upon patient request if [...] Refills, Maintenance, 05/09/21 8:45:00 EDT, SR Tablet, [facility], 165, cm, 04/11/21 7:42:00 EDT, Height, [...]
--- OUTSIDE RECORDS SUMMARY | 2023-07-16 14:41 | XMS_ITS | Continuity of Care Document ---
Author Name Unknown Organization [facility] ter Address [address] [place] [address]- Care Team Providers Care Pinion Sorter Name Role Phone Maribel Marquez NP Primary Care Physician Encounter [facility] Date(s): 04/26/23 - 04/27/[address] [address]- Encounter Diagnosis Suicidal ideation(Final) - 04/26/23 Hallucination(Final) - 04/26/23 Self-mutilation(Final) - 04/26/23 Discharge Disposition: Transfer to Psych Facility Attending Physician: Juventino Dover DO Admitting Physician: Juventino Dover DO Referring Physician: Not on Staff, Referring [...] Patient Refuses 1Early/Late Reason: Nursing Judgment Medications Acetaminophen Tablet 650 mg, Tablet, By Mouth, Every 8 hours, PRN for Pain , Moderate, STAT, 04/26/23 22:17:00 EDT Start Date: 04/26/23 Stop Date: 04/27/23 Status: Discontinued albuterol CFC free 90 mcg/inh inhalation aerosol 90 mcg, 1, puffs, Inhalation, Every 4 hours, PRN, # 6.7 Gm, Refills 0, Tot. Refills 0, Maintenance,11/16/22 10:33:00 EST, Inhaler, Route to Pharmacy Electronically, NCPDP_[id number], [facility], 163, cm, 11/16/22 9:43:00 EST, Height, 97.3,... Start Date: 11/16/22 Status: Ordered atorvastatin 10 mg oral tablet 1 tablet = 10 mg, By Mouth, Daily at bedtime, # 30 tablet, 0 Refills, Maintenance, 11/16/22 10:33:00 EST, Tablet, [facility], Partial fill upon patient request if [...] 11/16/22 10:33:00 EST, Route to Pharmacy Electronically, [facility], Partial fill upon patientrequest if the [...] 0 Refills, Maintenance, 11/16/22 10:33:00 EST, Tablet, [facility], Partial fill upon patient request if [...] 11/16/22 10:34:00 EST, Route to Pharmacy Electronically, [facility], Partial fill upon patient request if the prescription is for a schedule II opioid d... Start Date: 11/16/22 Stop Date: 08/13/23 Status: Ordered FLUoxetine 20 mg oral capsule 80 mg, 4, capsule, By Mouth, Daily in AM, # 120 capsule, Refills 0, Tot. Refills 0, Maintenance, 11/16/22 10:34:00 EST, Route to Pharmacy Electronically, [facility], Partial fill upon patient request if [...] 11/16/22 10:34:00 EST, Route to Pharmacy Electronically, [facility], Partial fill upon patientrequest if the prescription is for a schedule II op... Start Date: 11/16/22 Status: Ordered fluPHENAZine 5 mg oral tablet Refills 0, Maintenance, 01/06/23 18:05:00 EDT, Partial fill upon patient request if the prescription is for a schedule II opioid drug. Start Date: 01/06/23 Status: Ordered Ibuprofen Tablet 400 mg, Tablet, By Mouth, Every 8 hours, PRN for Pain , Moderate, STAT, 04/26/23 22:17:00 EDT Start Date: 04/26/23 Stop Date: 04/27/23 Status: Discontinued lactulose 10 g/15 mL oral and rectal [...] 02/12/23 10:51:00 EDT, Route to Pharmacy Electronically, [facility], Partial fill upon patient requestif the [...] 60 tablet, 1 Refills, Maintenance,02/22/23 10:08:00 EDT, [facility], 146, cm, 02/05/23 20:22:00 EDT, Height, [...] 0 Refills, Maintenance, 11/16/22 10:34:00 EST, Tablet, [facility], Partial fill upon patient request if the prescription is for a schedule II opioid drug., 163, juan j, 11/16/22 9:43:00 EST,... Start Date: 11/16/22 Status: [...] 0 Refills, Maintenance, 11/16/22 10:34:00 EST, Tablet, [facility], Partial fill upon patient request if the prescription is fora schedule II opioid drug., 163, juan j, 11/16/22 9:43:... Start Date: 11/16/22 Status: Ordered [...] 11/16/22 10:34:00 EST, Route to Pharmacy Electronically, [facility], Partial fill upon patient request if the prescription is for a schedule I... Start Date: 11/16/22 Status: Ordered montelukast 10 mg oral tablet Refills 0, Maintenance, 01/06/23 18:05:00 EDT, Partial fill upon patient request if the prescription is for a schedule II opioid drug. Start Date: 01/06/23 Status: Ordered nystatin topical 912207 u/gm cream 1 application, Topically, 2 times a day, # 15 Gm, 0 Refills, Maintenance, 01/05/23 15:04:00 EDT, Cream, [facility], Partial fill upon patient request if the prescription is for a schedule II opioid drug., 1 application Topically 2 times a da... Start Date: 01/05/23 Status: Ordered nystatin topical 134122 u/gm cream 0 Refills, Maintenance, 01/06/23 18:05:00 [...] 11/16/22 10:34:00 EST, Route to Pharmacy Electronically, [facility], Partial fill upon patient request if [...] Maintenance,11/16/22 10:34:00 EST, Route to Pharmacy Electronically, [facility], Partial fill upon patient request if [...] 1 2 3 Oxygen Saturation [94-100 %] 98 % (04/27/23 7:45 AM) 100 % (04/26/23 8:37 PM) Pulse Rate [55-90 bpm] 80 bpm (04/27/23 7:45 AM) 81 bpm (04/26/23 8:37 PM) Blood Pressure [90-138/55-84 mm Hg] 137/73mm Hg (04/27/23 7:45 AM) 151/96mm Hg *H* (04/26/23 8:37 PM) Respiratory Rate [16-30 br/min] 16 br/min (04/27/23 8:56 AM) 16 br/min (04/27/23 8:56 AM) 20 br/min (04/27/23 7:45 AM) Temperature [96.8-100.4 DegF] 97.6 DegF (04/27/23 7:45 AM) 97.5 DegF (04/26/23 8:37 PM) Mode of Delivery (Oxygen) Room air (04/27/23 7:45 AM) Room air (04/26/23 8:37 PM) Blood pressure sites Arm, left (04/26/23 8:37 PM) Temperature Route Oral (04/27/23 7:45 AM) Oral (04/26/23 8:37 PM) Social History Social History Type Response [...] Display: ECG 12-Lead Authored Date: Ventricular Rate: 84 BPM Atrial Rate: 84 BPM P-R Interval: 184 ms QRS Duration: 86 ms Q-T Interval: 396 ms QTC Calculation(Bazett): 467 ms P Lena: 39 degrees R Lena: 59 degrees T Lena: 51 degrees Normal sinus rhythm Normal ECG When compared with ECG of 18-APR-2023 22:36, No significant change was found Confirmed by PHIL RICE ([id number]) on 04/27/2023 2:55:07 PM [place]: PHIL RICE * Event Display: EKG Authored Date: Patient Care team information Care Team Personnel Name: Rudi Ruiz RN Position: [facility] ED RN W/OE and Tasks Member Role: Primary Care Nurse Name: Alicja Riggs RN Position: S RN Member Role: Primary Care Nurse Name: Ros Fu RN Position: S RN Member Role: Primary Care Nurse Name: Hilda Mccabe RN Position: [facility] RN Member Role: Primary Care Nurse Name: Rosana Kearney RN Position: [facility] SN RN Member Role: Primary Care Nurse Name: Wil Flood RN Position: [facility] RN Member Role: Primary Care Nurse Name: Gagandeep Sheldon RN Position: [facility] RN Member Role: Primary Care Nurse Name: Alba Daily RN Position: [facility] RN Member Role: Primary Care Nurse Name: Maribel Marquez NP Position: [facility] PCO Associate Professional Member Role: PCP Address: Address: [address] [place] [address]- [place] Name: Jose Ramirez RN Position: [facility] RN Member Role: Primary Care Nurse Name: Brittany Butts RN Position: [facility] AMB Nurse Member Role: Primary Care Nurse Name: Pauline Mcadams RN Position: [facility] RN Member Role: Primary Care Nurse Name: Mary Sánchez RN Position: [facility] RN Member Role: Primary Care Nurse Name: Shama Rosado RN Position: [facility] RN Member Role: Primary Care Nurse Name: Jackie Snyder RN Position: [facility] RN Member Role: Primary Care Nurse Name: Jay Burks NP Position: Reference Physician Member Role: Primary Care Nurse Address: Address: [address] [place] [address] Clinical & [place] [address]- [place] Name: Parvez Kaba MD Position: [facility] Renal MD Member Role: Lifetime Consulting Physician Address: Address: [address] [place] [address] [facility] [place] [address]- Name: Mirna Paul RN Position: [facility] OB RN Member Role: Primary Care Nurse Name: Latonya Rahman RN Position: [facility] Onco RN Member Role: Primary Care Nurse Name: Viki Gonzalez RN Position: [facility] RN Member Role: Primary Care Nurse Name: Claudia Presley RN Position: [facility] RN Member Role: Primary Care Nurse Name: Iris Villa RN Position: [facility] Hospital Finish Mixer Member Role: Primary Care Nurse [facility] Attending Position: [facility] ED Attendings Patient Name: Edgar Bell RN Position: [facility] ED RN W/OE and Tasks Member Role: Patient Care Provider Name: Juventino Dover DO Position: [facility] Resident Member Role: Admitting Physician Address: Address: [address] [place] [address] Dept of [place] [address]- [place] Care Team Related Persons Name: LISBETH- MANAGER CANCERINDRA Address: [address] [place] [address] Name: TEXTILE DESIGNS SALES REPRESENTATIVEGREGG Address: [address] [place] [address] Name: CARLOS PAZ Address: [address] [place] [address]
--- OUTSIDE RECORDS SUMMARY | 2023-07-16 14:41 | XMS_ITS | Continuity of Care Document ---
Author Name Unknown Organization [facility] ter Address [address] [place] [address]- Care Team Providers Care Paid Search Manager Name Role Phone Maribel Marquez NP Primary Care Physician [phone] [place] [facility] 09/30/22 - 10/01/[address] [address]- Encounter Diagnosis Depressed(Final) - 09/30/22 Suicidal ideation(Final) - 09/30/22 Auditory hallucination(Final) - 09/30/22 Visual hallucination(Final) - 09/30/22 Obesity(Final) - 09/30/22 Bipolar illness(Final) - 09/30/22 Discharge Disposition: A-D/C Home Attending Physician: Ros Corado MD Admitting Physician: Ros Corado MD Referring Physician: Not on Staff, Referring [...] tablet, 1 Refills, Maintenance, 07/24/22 15:17:00 EDT, [facility], 165.2, cm, 07/19/22 10:30:00 EDT, Height, [...] a day, # 12 Gm, 1 Refills, [facility], 162, cm, 03/20/22 19:50:00 EDT, Height, [...] 07/21/22 14:07:00 EDT, Route to Pharmacy Electronically, [facility], Partial fill upon patient requestif the prescription is for a schedule II opioid janet. Start Date: 07/21/22 Stop Date: 04/17/23 Status: Ordered lisinopril 5 mg oral tablet 5 mg, Tablet, By Mouth, 10/01/22 9:00:00 EST Start Date: 10/01/22 Stop Date: 10/01/22 Status: Completed metFORMIN 500 mg oral tablet See Instructions, TAKE 1 EACH BY MOUTH 2 TIMES A DAY, # 60 tablet, 5 Refills, 08/07/22 10:55:00 EDT, [facility], 165.2, cm, 07/19/22 10:30:00 EDT, Height, [...] 01/04/22 11:12:00 EDT, Route to Pharmacy Electronically, [facility], 165, cm, 12/19/21 10:41:00 EST, Height, [...] 01/19/22 10:48:00 EDT, Route to Pharmacy Electronically, [facility], Partial fill upon patient request if the prescription is for a schedule... Start Date: 01/19/22 Status: Ordered ProAir HFA 90 mcg/inh inhalation aerosol 2 puffs, Inhalation, 4 times a day, PRN as needed for wheezing, # 6.7 Gm, 1 Refills, Maintenance, 06/23/22 16:17:00 EDT, Aerosol, [facility], Partial fill upon patient request if [...] 07/28/22 7:45:00 EDT, Route to Pharmacy Electronically, [facility], 165.2, cm, 07/19/22 10:30:00 EDT, Height, [...] Refills, Maintenance, 05/09/21 8:45:00 EDT, SR Tablet, [facility], 165, cm, 04/11/21 7:42:00 EDT, Height, [...] severe with psychosis Confirmed Active Severe obesity Confirmed Active Single major depressive episode Confirmed Active Tobacco dependence Confirmed Active Type 2 diabetes mellitus Confirmed Active 1Problem added by Discern Expert Vital Signs Most recent to oldest [Reference Range]: 1 2 3 Height 157 cm (10/01/22 6:31 AM) 157 cm (09/30/22 3:29 PM) Weight 100 kg (10/01/22 6:31 AM) 100 kg (09/30/22 3:29 PM) Oxygen Saturation [94-100 %] 96 % (10/01/22 6:31 AM) 97 % (09/30/22 3:09 PM) Pulse Rate [55-90 bpm] 78 bpm (10/01/22 6:31 AM) 94 bpm *H* (09/30/22 3:09 PM) Body Mass Index [18.5-24.99 kg/m2] 40.57 kg/m2 *>HHI* (10/01/22 6:31 AM) Blood Pressure [90-138/55-84 mm Hg] 116/70mm Hg (10/01/22 7:38 AM) 116/70mm Hg (10/01/22 6:31 AM) 137/88mm Hg (09/30/22 3:09 PM) Respiratory Rate [16-30 br/min] 18 br/min (10/01/22 6:31 AM) 20 br/min (09/30/22 3:09 PM) Temperature [96.8-100.4 DegF] 98.8 DegF (09/30/22 3:09 PM) Mode of Delivery (Oxygen) Room air (10/01/22 6:31 AM) Room air (09/30/22 3:09 PM) Blood pressure sites Arm, right (10/01/22 6:31 AM) Arm, right (09/30/22 3:09 PM) Temperature Route Oral (09/30/22 3:09 PM) Dry Weight 100 kg (10/01/22 6:31 AM) 100 kg (09/30/22 3:29 PM) Dry Weight Obtained Via Patient/family s tated (09/30/22 3:29 PM) Social History Social History Type Response Smoking Status 10 or more cigarette s (1/2 pack or more)/day in last 30 days; Other: 1PPD; entered on: 07/19/22 Sex Note * Mickie LE, Ros Ortiz: PERFORM Event Display: Patient Education Leaflets Authored Date: [id number] Recognizing Suicide Warning Signs in Yourself ?? [address] Recognizing Suicide Warning Signs in Yourself People who are thinking about suicide may not know they are depressed. Certain thoughts, feelings, and actions can be signals that let you know you may need help. The best thing you can do is watch for signs that you may be at risk. Then, ask for help. You can talk with your regular healthcare provider or get help from a mental health provider. Depression Depression is a treatable illness, just like diabetes or heart disease. And like those illnesses, depression is not something that you can just snap out of. To feel better, treatment is needed before depression gets to a point that it can endanger your life. To know if depression is causing you to feel like ending your life, ask yourself: ??? Do I feel worthless, guilty, helpless, or hopeless? Have I been feeling sad, down, or blue on most days? Have I lost interest in my work or people I used to enjoy? Do I have trouble sleeping or do I sleep too much? Do I eat more or lessthan normal? Do I feel tired, weak, and low on energy? Do I feel restless and unable to sitstill? Do I have trouble thinking or making choices? Do I cry more than normal? Do I feel life isn't worth living? ?? Warning signs for suicide Call your healthcare provider or get help right away if you have any of the warning signs below. You can also call a mental health clinic or the suicide prevention lifeline for help and support. Warning signs for suicide include: ??? Thinking often about taking your life ??? Planning how you may attempt it ??? Talking or writing about suicide ??? Feeling that is the only solution to your problems ??? Feeling a pressing need to make out your will or arrange your ??? Giving away things you own ??? Taking part in risky behaviors, such as having sex with someone you don't know, or drinking and driving ??? Buying a lethal weapon, such as a gun, or hoarding medicines that could be used in an overdose ?? Call or text 988 If you are in immediate risk of harming yourself or others, call 988. When you call or text 988, you will be connected to trained crisis counselors. An online chat option is also available. Lifeline is free and available 07/05. ?? To learn more For more information about depression and suicide prevention: ??? National Suicide Prevention Lifeline at www.suicidepreventionlifeline.org or 057-243-IDLK (845-796-8052) ??? National [place] on Mental Illness at www.tristian.org or 780-315-1934 ??? Mental Health [place] at www.nmha.org or 837-249-5530 ??? National [place] of Mental Health at www.nimh.nih.gov or 009-592-2471 ?? Last Reviewed Date: 2022 ?? [employer]. All rights reserved. This information is not intended as a substitute for professional medical care. Always follow your healthcare professional's instructions. ?? Patient Care team information Care Team Personnel Name: Rudi Ruiz RN Position: [facility] ED RN W/OE and Tasks Member Role: Primary Care Nurse Name: Alicja Riggs RN Position: [facility] RN Member Role: Primary Care Nurse Name: Ros Fu RN Position: [facility] RN Member Role: Primary Care Nurse Name: Hilda Mccabe RN Position: [facility] RN Member Role: Primary Care Nurse Name: Rosana Kearney RN Position: [facility] AMB Nurse Member Role: Primary Care Nurse Name: Wil Flood RN Position: [facility] RN Member Role: Primary Care Nurse Name: Gagandeep Sheldon RN Position: [facility] RN Member Role: Primary Care Nurse Name: Chip Morton Position: [facility] Outreach Member Role: Lifetime Consulting Physician Name: Alba Daily RN Position: [facility] RN Member Role: Primary Care Nurse Name: Maribel Marquez NP Position: [facility] PCO Associate Professional Member Role: PCP Address: Address: [address] [place] [address]- [place] Name: Jose Ramirez RN Position: [facility] RN Member Role: Primary Care Nurse Name: Brittany Butts RN Position: [facility] AMB Nurse Member Role: Primary Care Nurse Name: Mary Sánchez RN Position: [facility] RN Member Role: Primary Care Nurse Name: Shama Rosado RN Position: [facility] RN Member Role: Primary Care Nurse Name: Jackie Snyder RN Position: [facility] RN Member Role: Primary Care Nurse Name: Jay Burks NP Position: Reference Physician Member Role: Primary Care Nurse Address: Address: [address] [place], [place] [id number] Clinical & [place] [address]- [place] Name: Parvez Kaba MD Position: [facility] Renal MD Member Role: Lifetime Consulting Physician Address: Address: [address] [place] [address] [facility] [place] [address]- [place] Name: Yoana Ledezma RN Position: [facility] RN Member Role: Primary Care Nurse Name: Mirna Paul RN Position: [facility] OB RN Member Role: Primary Care Nurse Name: Latonya Rahman RN Position: [facility] Onco RN Member Role: Primary Care Nurse Name: Claudia Presley RN Position: [facility] RN Member Role: Primary Care Nurse Name: Iris Villa RN Position: [facility] Hospital Cross Roller Member Role: Primary Care Nurse [facility] Attending Position: [facility] ED Attendings Patient Name: Ros Corado MD Position: [facility] ED Medicine MD Member Role: Admitting Physician Address: Address: [address] [place] [address] [place] [address]- [place] Name: Marie Beckham RN Position: [facility] ED RN W/OE and Tasks Member Role: Chart Review Care Team Related Persons Name: JO-ANN ROMANCEMENT TILE MAKERINDRA Address: [address] [place] [address] Name: POLITICAL REPORTERGREGG Address: [address] [place] [address] Name: CARLOS PAZ Address: [address] [place] [address]
--- OUTSIDE RECORDS SUMMARY | 2023-07-16 14:41 | XMS_ITS | Continuity of Care Document ---
Author Name Unknown Organization [facility] ter Address [address] [place] [address]- Care Team Providers Care Pattern Shop Supervisor Name Role Phone Maribel Marquez NP Primary Care Physician Encounter [facility] [place] Date(s): 02/12/21 - 02/12/[address] [address]- Discharge Disposition: A-D/C Home Attending Physician: Tiffanie Camacho MD Admitting Physician: Tiffanie Camacho MD Referring Physician: Not on Staff, Referring [...] Patient Refuses 1Early/Late Reason: Nursing Judgment Medications acetaminophen 325 mg oral capsule 2 capsule = 650 mg, By Mouth, 4 times a day, PRN as needed for pain, for 7 days, # 40 capsule, 0 Refills, Acute 02/19/21 12:25:00 EDT, 02/12/21 12:25:00 EDT, Capsule, [facility], Partial fill upon patient request if the prescription is for a... Start Date: 02/12/21 Stop Date: 02/19/21 Status: Ordered atorvastatin 10 mg oral tablet 1 tablet = 10 mg, By Mouth, Daily at bedtime, # 30 tablet, 0 Refills, Maintenance, 12/23/20 16:38:00 EST, Tablet, [facility], Partial fill upon patient [...] 0 Refills, Maintenance, 02/09/20 10:08:00 EDT, Tablet, [facility], 165, cm, 02/08/20 19:47:00 EDT, Height, 104.5, kg,02/07/20 8:15:00 EDT, Dry Weight Start Date: 02/09/20 Status: Ordered doxazosin 1 mg oral tablet 3 mg, 3, tablet, By Mouth, Daily at bedtime, # 90 tablet, Refills 0, Tot. Refills 0, Maintenance, 07/22/20 18:41:00 EDT, Route to Pharmacy Electronically, [facility], 163.5, cm, 07/22/20 18:29:00 EDT, Height, 102.5, kg, 07/18/20 21:04:00 EDT... Start Date: 07/22/20 Status: Ordered ferrous sulfate 325 mg oral enteric coated tablet 325 mg, 1, tablet, By Mouth, Daily, # 30 tablet, Refills 0, Tot. Refills 0, Maintenance, 12/23/20 15:38:00 EST, Route to Pharmacy Electronically, [facility], Partial fill upon patient request if the prescription is for a schedule II opioid d... Start Date: 12/23/20 Status: Ordered Flovent HFA 110 mcg/inh inhalation aerosol 2 puffs = 220 mcg, Inhalation, 2 times a day, # 1 each, 0 Refills, Maintenance, 12/23/20 15:38:00 EST, Aerosol, [facility], 162, cm, 12/23/20 10:43:00 EST, Height, 122.1, kg, 12/21/20 16:25:00 EST, Dry Weight Start Date: 12/23/20 Status: Ordered Haldol Decanoate decanoate 100 mg/ml injectable solution = 100 mg, Intramuscular, Every 28 days, last dose given on 09/17/2020. Next due 10/15/20., # 1 each, 0Refills, Soft Stop, 07/22/20 18:42:00 EDT, Solution, [facility], 163.5, cm, 07/22/20 18:29:00 EDT, Height, 102.5, kg, 07/18/20 21:04:00 EDT,... Start Date: 07/22/20 Status: Ordered ibuprofen 600 mg oral tablet 600 mg, 1, tablet, By Mouth, 4 times a day, PRN, for 7 days, # 40 tablet, Refills 0, Tot. Refills 0, Acute 02/19/21 12:25:00 EDT, for pain, 02/12/21 12:25:00 EDT, Route to Pharmacy Electronically, [facility], Partial fill upon patient reques... Start Date: 02/12/21 Stop Date: 02/19/21 Status: Ordered lisinopril 5 mg oral tablet 5 mg, 1, tablet, By Mouth, Daily, # 30 tablet, Refills 0, Tot. Refills 0, Maintenance, 02/09/20 10:10:00 EDT, Route to Pharmacy Electronically, [facility], 165, cm, 02/08/20 19:47:00 EDT, Height, [...] 0 Refills, Maintenance, 12/23/20 16:38:00 EST, Tablet, [facility], Partial fill upon patient request if the prescription is for a schedule II opioid drug., 162, cm, 12/23/20 15:59:00 EST... Start Date: 12/23/20 Stop Date: 01/22/21 Status: Ordered montelukast 10 mg oral tablet 10 mg, 1, tablet, By Mouth, Daily, # 30 tablet, Refills 0, Tot. Refills 0, Maintenance, 02/09/20 10:11:00 EDT, Route to Pharmacy Electronically, [facility], 165, cm, 02/08/20 19:47:00 EDT, Height, 104.5, kg, 02/07/20 8:15:00 EDT, Dry Weight Start Date: 02/09/20 Status: Ordered norethindrone 0.35 mg oral tablet 1 tablet = 0.35 mg, By Mouth, Daily, # 30 tablet, 0 Refills, Maintenance, 02/09/20 10:07:00 EDT, Tablet, [facility], 165, cm, 02/08/20 19:47:00 EDT, Height, [...] Refills, Maintenance, 12/23/20 15:38:00 EST, REC Powder, [facility], Partial fill upon patient request if [...] 0 Refills, Maintenance, 02/09/20 10:05:00 EDT, Inhaler, [facility], 165, cm, 02/08/20 19:47:00 EDT, Height, 104.5, kg, 02/07/20 8:15:00 EDT, Dry Weight Start Date: 02/09/20 Stop Date: 03/10/20 Status: Ordered verapamil 240 mg/12 hours oral tablet, extended release 1 tablet = 240 mg, By Mouth, Daily at bedtime, # 30 tablet, 0 Refills, Maintenance, 02/09/20 10:14:00 EDT, SR Tablet, [facility], 165, cm, 02/08/20 19:47:00 EDT, Height, [...] dependence(Confirmed) Active Type 2 diabetes mellitus(Confirmed) Active Results Radiology Reports * Exam Date Time Procedure Performing Provider Status 02/12/21 10:31 AM Chest 2 Views Frontal and Lat Janie Vargas; Auth (Verified) Notes: (Chest 2 Views Frontal and Lat) Reason For Exam: Pleuritic Pain RESULT: Chest 2 Views Frontal and Lat Chest 2 Views Frontal and Lat Hx of Present Illness: cp that increases with breathing, here yest for the same but LWBS; Reason: Pleuritic Pain; Clinical Question(s): Pneumothorax COMPARISON: 02/11/2021, 10/16/2020 FINDINGS: LINES AND TUBES: None. LUNGS AND PLEURA: Clear lungs. Normal pulmonary vascularity. Blunting of the posterior costophrenic sulci is similar to prior studies and may represent chronic pleural scarring versus trace effusions. No pneumothorax. HEART, MEDIASTINUM AND HENRY: Heart is normal in size. Normal upper mediastinal and hilar contour. BONES AND SOFT TISSUES: No acute abnormality. IMPRESSION: No acute abnormality. Chronic blunting of the posterior costophrenic sulci which may represent pleural thickening versus very small bilateral effusions. WSN: [id number] Ordering Physician: Venkata Wyman Dictated By: Marie Almeida MD Dictated Date/Time: 02/12/21 10:43 a Reviewed By: Marie Almeida MD Signed By: Marie Almeida MD Signed Date/Time: 02/12/21 10:43 am Transcribed By: DAVIS Transcribed Date/Time: 02/12/21 10:40 am Vital Signs Most recent to oldest [Reference Range]: 1 2 Height 165 cm (02/12/21 12:14 PM) 165 cm (02/12/21 9:32 AM) Weight 102.6 kg (02/12/21 12:14 PM) 102.6 kg (02/12/21 9:32 AM) Oxygen Saturation [94-100 %] 96 % (02/12/21 12:14 PM) 97 % (02/12/21 9:32 AM) Pulse Rate [55-90 bpm] 77 bpm (02/12/21 12:14 PM) 102 bpm *H* (02/12/21 9:32 AM) Body Mass Index [18.5-24.99] 37.69 *>HHI* (02/12/21 12:14 PM) 37.69 *>HHI* (02/12/21 9:32 AM) Blood Pressure [90-138/55-84 mm Hg] 133/ 83mm Hg (02/12/21 12:14 PM) 138/85mm Hg (02/12/21 9:32 AM) Respiratory Rate [16-30 br/min] 18 br/mi n (02/12/21 12:14 PM) 19 br/min (02/12/21 9:32 AM) Temperature [96.8-100.4 DegF] 98.1 DegF (02/12/21 12:14 PM) 98.6 DegF (02/12/21 9:32 AM) Mode of Delivery (Oxygen) Room air (02/12/21 12:14 PM) Room air (02/12/21 9:32 AM) Blood pressure sites Arm, right (02/12/21 12:14 PM) Arm, right (02/12/21 9:32 AM) Temperature Route Oral (02/12/21 12:14 PM) Oral (02/12/21 9:32 AM) Dry Weight 102.6 kg (02/12/21 12:14 PM) 102.6 kg (02/12/21 9:32 AM) Weight Obtained Via Standing scale (02/12/21 9:32 AM) Dry Weight Obtained Via Standing scale (02/12/21 9:32 AM) Social History Social History Type Response Smoking Status 10 or more cigarette s (1/2 pack or more)/day in last 30 days; Type: Cigarettes; Other: Reports smoking 1/2-1 packs/day, ending on level of stress; Started at age: 25; entered on: 12/31/20 Sex
--- OUTSIDE RECORDS SUMMARY | 2023-07-16 14:41 | XMS_ITS | Continuity of Care Document ---
Author Name Unknown Organization [facility] Address [address] [place] [address]- Care Team Providers Care Field Marketing Coordinator Name Role Phone Maribel Marquez NP Primary Care Physician Encounter [facility] [place] Date(s): 02/08/22 - 03/10/22 [facility] [address] [place] [address]- Allergies, Adverse Reactions, Alerts Substance Reaction Severity [...] tablet, 0 Refills, Maintenance, 01/04/22 11:12:00 EDT, [facility], Partial fill upon patient request if [...] 04/11/21 9:22:00 EDT, Route to Pharmacy Electronically, [facility], Partial fill upon patient request if the prescription is for a schedule II opioid . Start Date: 04/11/21 Stop Date: 01/06/22 Status: Ordered Flovent HFA 110 mcg/inh inhalation aerosol 2 puffs, Inhalation, 2 times a day, # 12 Gm, 2 Refills, [facility], 165, cm, 12/19/21 10:41:00 EST, Height, [...] 04/04/22 12:34:00 EDT, 01/04/22 12:34:00 EDT, Tablet, [facility], Partial fill upon patient request if the prescription is f... Start Date: 01/04/22 Stop Date: 04/04/22 Status: Ordered metFORMIN 500 mg oral tablet See Instructions, TAKE 1 EACH BY MOUTH 2 TIMES A DAY, # 60 tablet, 5 Refills, [facility],165, cm, 01/19/22 13:55:00 EDT, Height, 103, [...] 01/04/22 11:12:00 EDT, Route to Pharmacy Electronically, [facility], 165, cm, 12/19/21 10:41:00 EST, Height, [...] 01/19/22 10:48:00 EDT, Route to Pharmacy Electronically, [facility] [...] Refills, Maintenance, 05/09/21 8:45:00 EDT, SR Tablet, [facility], 165, cm, 04/11/21 7:42:00 EDT, Height, [...]
--- OUTSIDE RECORDS SUMMARY | 2023-07-16 14:42 | XMS_ITS | Continuity of Care Document ---
Author Name Unknown Organization [facility] Address [address] [place] [address]- Care Team Providers Care Court Recording Monitor Name Role Phone Maribel Marquez NP Primary Care Physician Encounter [facility] [place] Date(s): 10/05/21 - 11/04/21 [facility] [address] [place] [address]- Allergies, Adverse Reactions, Alerts Substance Reaction Severity Status codeine Active predniSONE Active lithium 1 Active penicillin Active sulfa drugs Active Macrobid Active Zithromax [...] 0 Refills, Maintenance, 06/28/21 10:16:00 EDT, Tablet, [facility], Partial fill upon patient request if [...] 0 Refills, Maintenance, 02/09/20 10:08:00 EDT, Tablet, [facility], 165, cm, 02/08/20 19:47:00 EDT, Height, 104.5, kg,02/07/20 8:15:00 EDT, Dry Weight Start Date: 02/09/20 Status: Ordered doxazosin 1 mg oral tablet 3 mg, 3, tablet, By Mouth, Daily at bedtime, # 90 tablet, Refills 0, Tot. Refills 0, Maintenance, 07/22/20 18:41:00 EDT, Route to Pharmacy Electronically, [facility], 163.5, cm, 07/22/20 18:29:00 EDT, Height, 102.5, kg, 07/18/20 21:04:00 EDT... Start Date: 07/22/20 Status: Ordered ferrous sulfate 325 mg oral enteric coated tablet 325 mg, 1, tablet, By Mouth, Daily, # 90 tablet, Refills 2, Tot. Refills 2, Maintenance, 04/11/21 9:22:00 EDT, Route to Pharmacy Electronically, [facility], Partial fill upon patient request if the prescription is for a schedule II opioid drCheyanne. Start Date: 04/11/21 Stop Date: 01/06/22 Status: Ordered Flovent HFA 110 mcg/inh inhalation aerosol 2 puffs = 220 mcg, Inhalation, 2 times a day, # 3 each, 3 Refills, Maintenance, 05/09/21 8:41:00 EDT, Aerosol, [facility], 165, cm, 04/11/21 7:42:00 EDT, Height, 102.6, kg, 02/12/21 12:14:00 EDT, Dry Weight Start Date: 05/09/21 Status: Ordered ibuprofen 600 mg oral tablet 600 mg, 1, tablet, By Mouth, Every 6 hours, PRN, # 120 tablet, Refills 0, Tot. Refills 0, Maintenance, Headache, 08/08/21 7:41:00 EDT, Route to Pharmacy Electronically, [facility], Partial fill upon patient request if the prescription is for... Start Date: 08/08/21 Stop Date: 09/07/21 Status: Ordered lisinopril 5 mg oral tablet 5 mg, 1, tablet, By Mouth, Daily, # 90 tablet, Refills 1, Tot. Refills 1, Maintenance, 05/09/21 8:43:00 EDT, Route to Pharmacy Electronically, [facility], 165, cm, 04/11/21 7:42:00 EDT, Height, 102.6, kg, 02/12/21 12:14:00 EDT, Dry Weight Start Date: 05/09/21 Status: Ordered loratadine 10 mg oral tablet 10 mg, 1, tablet, By Mouth, Daily, # 90 tablet, Refills 3, Tot. Refills 3, Maintenance, 04/11/21 9:38:00 EDT, Route to Pharmacy Electronically, [facility], Partial fill upon patient requestif the [...] each, 1 Refills, Maintenance, 05/09/21 8:43:00 EDT,Tablet, [facility], Partial fill upon patient request if the prescription is for a schedule II opioid drug., 165, cm, 04/11/21 7:42:00 EDT, H... Start Date: 05/09/21 Stop Date: 11/05/21 Status: Ordered montelukast 10 mg oral tablet 10 mg, 1, tablet, By Mouth, Daily, # 90 tablet, Refills 1, Tot. Refills 1, Maintenance, 05/09/21 8:45:00 EDT, Route to Pharmacy Electronically, [facility], 165, cm, 04/11/21 7:42:00 EDT, Height, [...] Gm, 5 Refills, Acute, 05/10/21 11:59:00 EDT, [facility], 15, TAKE 17 GM BY MOUTH [...] 0 Refills, Maintenance, 02/09/20 10:05:00 EDT, Inhaler, [facility], 165, cm, 02/08/20 19:47:00 EDT, Height, 104.5, kg, 02/07/20 8:15:00 EDT, Dry Weight Start Date: 02/09/20 Stop Date: 03/10/20 Status: Ordered verapamil 240 mg/12 hours oral tablet, extended release 1 tablet = 240 mg, By Mouth, Daily at bedtime, # 90 tablet, 1 Refills, Maintenance, 05/09/21 8:45:00 EDT, SR Tablet, [facility], 165, cm, 04/11/21 7:42:00 EDT, Height, [...]
--- OUTSIDE RECORDS SUMMARY | 2023-07-16 14:42 | XMS_ITS | Continuity of Care Document ---
Author Name Unknown Organization [facility] Address [address] [place] [address]- Care Team Providers Care Tobacco Cutter Name Role Phone Maribel Marquez NP Primary Care Physician Encounter [facility] [place] Date(s): 04/10/22 - 05/10/22 [facility] [address] [place] [address]- Allergies, Adverse Reactions, Alerts Substance Reaction Severity [...] influenza virus vaccine, inactivated 1 09/27/10 Gi bneton influenza virus vaccine, inactivated 07/23/09 Russel rded [...] tablet, 0 Refills, Maintenance, 01/04/22 11:12:00 EDT, [facility], Partial fill upon patient request if [...] 04/11/21 9:22:00 EDT, Route to Pharmacy Electronically, [facility], Partial fill upon patient request if the prescription is for a schedule II opioid drCheyanne. Start Date: 04/11/21 Stop Date: 01/06/22 Status: Ordered Flovent HFA 110 mcg/inh inhalation aerosol 2 puffs, Inhalation, 2 times a day, # 12 Gm, 1 Refills, [facility], 162, cm, 03/20/22 19:50:00 EDT, Height, [...] A DAY, # 60 tablet, 5 Refills, [facility],165, cm, 01/19/22 13:55:00 EDT, Height, 103, [...] 01/04/22 11:12:00 EDT, Route to Pharmacy Electronically, [facility], 165, cm, 12/19/21 10:41:00 EST, Height, 103, kg, 11/26/21 8:59:00 EST, DrRobi.. Start Date: 01/04/22 Status: Ordered Nicotine 2 mg gum 1 each = 2 mg, Chew, Every 2 hours, PRN as needed for smoking cessation, for 4 week(s), # 336 each,1 Refills, Acute 05/19/22 14:46:00 EDT, 03/24/22 14:46:00 EDT, Gum, [facility], Partial fill upon patient request if the prescription is for... Start Date: 03/24/22 Stop Date: 05/19/22 Status: Ordered pantoprazole 40 mg oral delayed release tablet 1 tablet = 40 mg, By Mouth, Daily, Maintenance, 01/30/22 13:58:00 EDT, EC Tablet Start Date: 01/30/22 Status: Ordered prazosin 1 mg oral capsule 4 mg, 4, capsule, By Mouth, Daily at bedtime, # 120 capsule, Refills 5, Tot. Refills 5, Maintenance, 01/19/22 10:48:00 EDT, Route to Pharmacy Electronically, [facility], Partial fill upon patient request if [...] Refills, Maintenance, 05/09/21 8:45:00 EDT, SR Tablet, [facility], 165, cm, 04/11/21 7:42:00 EDT, Height, [...]
--- OUTSIDE RECORDS SUMMARY | 2023-07-16 14:42 | XMS_ITS | Continuity of Care Document ---
Author Name Unknown Organization [facility] Address [address] [place] [address]- Care Team Providers Care Computer Applications Instructor Name Role Phone Maribel Marquez NP Primary Care Physician [phone] Encounter [facility] Date(s): 05/09/23 - 06/08/23 [facility] [address] [place] [address]- Allergies, Adverse Reactions, Alerts Substance Reaction Severity [...] each, 5 Refills, Maintenance, 05/22/23 11:32:00 EDT, [facility], Partial fill upon patient request if the prescription is for a schedule II opioid drug., 2 puffs Inhal... Start Date: 05/22/23 Stop Date: 05/22/24 Status: Ordered albuterol CFC free 90 mcg/inh inhalation aerosol 90 mcg, 1, puffs, Inhalation, Every 4 hours, PRN, # 6.7 Gm, Refills 0, Tot. Refills 0, Maintenance,11/16/22 10:33:00 EST, Inhaler, Route to Pharmacy Electronically, [id number]_[id number], [facility], 163, cm, 11/16/22 9:43:00 EST, Height, 97.3,... Start Date: 11/16/22 Status: Ordered atorvastatin 10 mg oral tablet 1 tablet = 10 mg, By Mouth, Daily at bedtime, # 30 tablet, 0 Refills, Maintenance, 11/16/22 10:33:00 EST, Tablet, [facility], Partial fill upon patient request if [...] 11/16/22 10:33:00 EST, Route to Pharmacy Electronically, [facility], Partial fill upon patientrequest if the [...] 0 Refills, Maintenance, 11/16/22 10:33:00 EST, Tablet, [facility], Partial fill upon patient request if [...] 11/16/22 10:34:00 EST, Route to Pharmacy Electronically, [facility], Partial fill upon patient request if the prescription is for a schedule II opioid d... Start Date: 11/16/22 Stop Date: 08/13/23 Status: Ordered FLUoxetine 20 mg oral capsule 80 mg, 4, capsule, By Mouth, Daily in AM, # 120 capsule, Refills 0, Tot. Refills 0, Maintenance, 11/16/22 10:34:00 EST, Route to Pharmacy Electronically, [facility], Partial fill upon patient request if [...] 11/16/22 10:34:00 EST, Route to Pharmacy Electronically, [facility], Partial fill upon patientrequest if the [...] 02/12/23 10:51:00 EDT, Route to Pharmacy Electronically, [facility], Partial fill upon patient requestif the [...] 60 tablet, 1 Refills, Maintenance,02/22/23 10:08:00 EDT, [facility], 146, cm, 02/05/23 20:22:00 EDT, Height, [...] 0 Refills, Maintenance, 11/16/22 10:34:00 EST, Tablet, [facility], Partial fill upon patient request if [...] 0 Refills, Maintenance, 11/16/22 10:34:00 EST, Tablet, [facility], Partial fill upon patient request if [...] 11/16/22 10:34:00 EST, Route to Pharmacy Electronically, [facility], Partial fill upon patient request if [...] 11:34:00 EDT, 05/22/23 11:32:00 EDT, ER Tablet, [facility], Partial fill upon patient request if the prescription is for a radha... Start Date: 05/22/23 Stop Date: 05/29/24 Status: Ordered nystatin topical 816841 u/gm cream 1 application, Topically, 2 times a day, # 15 Gm, 0 Refills, Maintenance, 01/05/23 15:04:00 EDT, Cream, [facility], Partial fill upon patient request if the prescription is for a schedule II opioid drug., 1 application Topically 2 times a da... Start Date: 01/05/23 Status: Ordered nystatin topical 440209 u/gm cream 0 Refills, Maintenance, 01/06/23 18:05:00 [...] 11/16/22 10:34:00 EST, Route to Pharmacy Electronically, [facility], Partial fill upon patient request if [...] Maintenance,11/16/22 10:34:00 EST, Route to Pharmacy Electronically, [facility], Partial fill upon patient request if [...] Personnel Name: Rudi Ruiz RN Position: [facility] ED RN W/OE and Tasks Member Role: Primary Care Nurse Name: Alicja Riggs RN Position: [facility] RN Member Role: Primary Care Nurse Name: Ros Fu RN Position: [facility] RN Member Role: Primary Care Nurse Name: Hilda Mccabe RN Position: [facility] RN Member Role: Primary Care Nurse Name: Rosana Kearney RN Position: [facility] SN RN Member Role: Primary Care Nurse Name: Wil Flood RN Position: [facility] RN Member Role: Primary Care Nurse Name: Gagandeep Sheldon RN Position: [facility] RN Member Role: Primary Care Nurse Name: Alba Daily RN Position: [facility] RN Member Role: Primary Care Nurse Name: Maribel Marquez NP Position: [facility] PCO Associate Professional Member Role: PCP Address: Address: [address] [place] [address]- Name: Jose Ramirez RN Position: [facility] RN Member Role: Primary Care Nurse Name: Brittany Butts RN Position: [facility] AMB Nurse Member Role: Primary Care Nurse Name: Pauline Mcadams RN Position: [facility] RN Member Role: Primary Care Nurse Name: Mary Sánchez RN Position: [facility] RN Member Role: Primary Care Nurse Name: Shama Rosado RN Position: [facility] RN Member Role: Primary Care Nurse Name: Jackie Snyder RN Position: [facility] RN Member Role: Primary Care Nurse Name: Jay Burks NP Position: Reference Physician Member Role: Primary Care Nurse Address: Address: [address] [place] [address] [address] [facility] [place] [address]- [place] Name: Parvez Kaba MD Position: [facility] Renal MD Member Role: Lifetime Consulting Physician Address: Address: [address] [place] [address] [facility] [place] [address]- [place] Name: Mirna Paul RN Position: [facility] OB RN Member Role: Primary Care Nurse Name: Latonya Rahman RN Position: [facility] Onco RN Member Role: Primary Care Nurse Name: Viki Gonzalez RN Position: [facility] RN Member Role: Primary Care Nurse Name: Claudia Presley RN Position: [facility] RN Member Role: Primary Care Nurse Name: Iris Villa RN Position: [facility] Hospital Agriculture Manager Member Role: Primary Care Nurse Care Team Related Persons Name: JO-ANN ROMANSECURITY GUARD DISPATCHERINDRA Address: [address] [place] [address] Name: PEST CONTROL TECHNICIANGREGG Address: [address] [place] [address] Name: CARLOS PAZ Address: [address] [place] [address]
--- OUTSIDE RECORDS SUMMARY | 2023-07-16 14:42 | XMS_ITS | Continuity of Care Document ---
Author Name Unknown Organization [facility] ter Address [address] [place] [id number]- Care Team Providers Care Trumpet Player Name Role Phone Maribel Marquez NP Primary Care Physician Encounter [facility] Date(s): 01/18/23 - 01/19/[address] [address]- Encounter Diagnosis Chronic post-traumatic stress disorder (PTSD)(Final) - 01/18/23 Hyperlipidemia NOS(Final) - 01/18/23 Bipolar disorder(Final) - 01/18/23 Borderline personality disorder(Final) - 01/18/23 Suicidal ideation(Final) - 01/18/23 Superficial burn(Final) - 01/18/23 Self-cutting of wrist(Final) - 01/18/23 Discharge Disposition: Transfer to Psych Facility Attending Physician: Milton Ovalle MD Admitting Physician: Milton Ovalle MD Referring Physician: Not on Staff, Referring MD Allergies, Adverse Reactions, Alerts Substance Reaction Severity Status codeine Active penicillin Active Macrobid Active lithium 1 Active predniSONE Active sulfa drugs Active Zithromax Active Seafood Active Geodon Active [...] Russel rded influenza virus vaccine, inactivated 1 12/14/10 Gi benton influenza virus vaccine, inactivated 07/23/09 [...] 10:33:00 EST, Inhaler, Route to Pharmacy Electronically, [id number], [facility], 163, cm, 11/16/22 9:43:00 EST, Height, 97.3,... Start Date: 11/16/22 Status: Ordered atorvastatin 10 mg oral tablet 1 tablet = 10 mg, By Mouth, Daily at bedtime, # 30 tablet, 0 Refills, Maintenance, 11/16/22 10:33:00 EST, Tablet, [facility], Partial fill upon patient request if [...] 11/16/22 10:33:00 EST, Route to Pharmacy Electronically, [facility], Partial fill upon patientrequest if the [...] 0 Refills, Maintenance, 11/16/22 10:33:00 EST, Tablet, [facility], Partial fill upon patient [...] 11/16/22 10:34:00 EST, Route to Pharmacy Electronically, [facility], Partial fill upon patient request if the prescription is for a schedule II opioid d... Start Date: 11/16/22 Stop Date: 08/13/23 Status: Ordered FLUoxetine 20 mg oral capsule 80 mg, 4, capsule, By Mouth, Daily in AM, # 120 capsule, Refills 0, Tot. Refills 0, Maintenance, 11/16/22 10:34:00 EST, Route to Pharmacy Electronically, [facility], Partial fill upon patient request if [...] 11/16/22 10:34:00 EST, Route to Pharmacy Electronically, [facility], Partial fill upon patientrequest if the [...] 11/16/22 10:34:00 EST, Route to Pharmacy Electronically, [facility], [...] 0 Refills, Maintenance, 11/16/22 10:34:00 EST, Tablet, [facility], Partial fill upon patient request if [...] 0 Refills, Maintenance, 11/16/22 10:34:00 EST, Tablet, [facility], Partial fill upon patient [...] 11/16/22 10:34:00 EST, Route to Pharmacy Electronically, [facility], Partial fill upon patient request if the prescription is for a schedule I... Start Date: 11/16/22 Status: Ordered montelukast 10 mg oral tablet Refills 0, Maintenance, 01/06/23 18:05:00 EDT, Partial fill upon patient request if the prescription is for a schedule II opioid drug. Start Date: 01/06/23 Status: Ordered nystatin topical [id number] u/gm cream 1 application, Topically, 2 times a day, # 15 Gm, 0 Refills, Maintenance, 01/05/23 15:04:00 EDT, Cream, [facility], Partial fill upon patient request if the prescription is for a schedule II opioid drug., 1 application Topically 2 times a da... Start Date: 01/05/23 Status: Ordered nystatin topical 234238 u/gm cream 0 Refills, Maintenance, 01/06/23 18:05:00 [...] 11/16/22 10:34:00 EST, Route to Pharmacy Electronically, [facility], Partial fill upon patient request if [...] Maintenance,11/16/22 10:34:00 EST, Route to Pharmacy Electronically, [facility], Partial fill upon patient request if [...] oldest [Reference Range]: 1 2 3 Height 163 cm (01/18/23 5:50 PM) 163 cm (01/18/23 5:48 PM) Weight 100 kg (01/18/23 5:50 PM) Oxygen Saturation [94-100 %] 95 % (01/18/23 8:09 PM) 94 % (01/18/23 5:50 PM) 94 % (01/18/23 5:47 PM) Pulse Rate [55-90 bpm] 87 bpm (01/18/23 8:09 PM) 107 bpm *H* (01/18/23 5:50 PM) 107 bpm *H* (01/18/23 5:47 PM) Blood Pressure [90-138/55-84 mm Hg] 141/86mm Hg *H* (01/18/23 5:50 PM) 141/86mm Hg *H* (01/18/23 5:47 PM) Respiratory Rate [16-30 br/min] 20 br/min (01/18/23 8:09 PM) 26 br/min (01/18/23 5:50 PM) 26 br/min (01/18/23 5:47 PM) Temperature [96.8-100.4 DegF] 98.4 DegF (01/18/23 5:50 PM) 98.4 DegF (01/18/23 5:47 PM) Mode of Delivery (Oxygen) Room air (01/18/23 8:09 PM) Room air (01/18/23 5:50 PM) Room air (01/18/23 5:47 PM) Blood pressure sites Arm, right (01/18/23 5:50 PM) Temperature Route Oral (01/18/23 5:50 PM) Oral (01/18/23 5:47 PM) Dry Weight 100 kg (01/18/23 5:50 PM) 100 kg (01/18/23 5:48 PM) Weight Obtained Via Patient/family state d (01/18/23 5:48 PM) Dry Weight Obtained Via Patient/family s tated (01/18/23 5:48 PM) Social History Social History Type Response Smoking Status 10 or more cigarette s (1/2 pack or more)/day in last 30 days; Type: Cigarettes; Other: Reports smoking 1/2-1 packs/day, ending on level of stress; Started at age: 25; entered on: 11/18/22 Sex Hospital Progress note * Event Display: Progress Note Hospital Authored Date: [id number] Patient Care team information Care Team Personnel Name: Rudi Ruiz RN Position: [facility] ED RN W/OE and Tasks Member Role: Primary Care Nurse Name: Alicja Riggs RN Position: [facility] RN Member Role: Primary Care Nurse Name: Harmony Pagan Position: [facility] RN Member Role: Primary Care Nurse Name: Ros Fu RN Position: [facility] RN Member Role: Primary Care Nurse Name: Hilda Mccabe RN Position: [facility] RN Member Role: Primary Care Nurse Name: Rosana Kearney RN Position: [facility] SN RN Member Role: Primary Care Nurse Name: Wil Flood RN Position: [facility] RN Member Role: Primary Care Nurse Name: Gagandeep Sheldon RN Position: [facility] RN Member Role: Primary Care Nurse Name: Chip Morton Position: [facility] Outreach Member Role: Lifetime Consulting Physician Name: Alba Daily RN Position: [facility] RN Member Role: Primary Care Nurse Name: Maribel Marquez NP Position: [facility] PCO Associate Professional Member Role: PCP Address: Address: [address] [place] [address]- [place] Name: Jose Ramirez RN Position: [facility] RN Member Role: Primary Care Nurse Name: Brittany Butts RN Position: [facility] AMB Nurse Member Role: Primary Care Nurse Name: Pauline Mcadams RN Position: [facility] RN Member Role: Primary Care Nurse Name: Mary Sánchez RN Position: [facility] RN Member Role: Primary Care Nurse Name: Shama Rosado RN Position: [facility] RN Member Role: Primary Care Nurse Name: Jackie Snyder RN Position: [facility] RN Member Role: Primary Care Nurse Name: Jay Burks NP Position: Reference Physician Member Role: Primary Care Nurse Address: Address: [address] [place], [place] [id number] [facility] [place] [address]- Name: Parvez Kaba MD Position: [facility] Renal MD Member Role: Lifetime Consulting Physician Address: Address: [address] [place] [address] [facility] [place] [address]- Name: Yoana Ledezma RN Position: [facility] RN Member Role: Primary Care Nurse Name: Mirna Paul RN Position: [facility] OB RN Member Role: Primary Care Nurse Name: Latonya Rahman RN Position: [facility] Onco RN Member Role: Primary Care Nurse Name: Viki Gonzalez RN Position: [facility] RN Member Role: Primary Care Nurse Name: Claudia Presley RN Position: [facility] RN Member Role: Primary Care Nurse Name: Iris Villa RN Position: [facility] Hospital Braker Passenger Train Member Role: Primary Care Nurse Name: Melissa Vigil Position: [facility] ED TA [facility] Name: Arleth Arellano MD Position: [facility] Resident Member Role: ED Resident Address: Address: [address] [place] [address]- [place] Name: Milton Ovalle MD Position: [facility] Resident Member Role: ED Attending Physician Address: Address: [address] [place] [address]- Name: Raysa Perez RN Position: [facility] ED RN W/OE and Tasks Member Role: Patient Care Provider Name: Harmony Gutierrez Position: [facility] ED TA [facility] Member Role: Creative Consultant Care Team Related Persons Name: JO-ANN [employer]ENDENT[employer]ILTON Address: home [address] [id number] Name: ONION FARMERGREGG Address: [address] [place] [address] Name: CARLOS PAZ Address: [address] [place] [address]
--- OUTSIDE RECORDS SUMMARY | 2023-07-16 14:42 | XMS_ITS | Continuity of Care Document ---
Author Name Unknown Organization [facility] ter Address [address] [place] [address]- Care Team Providers Care Granite Block Paver Name Role Phone Maribel Marquez NP Primary Care Physician Encounter [facility] Date(s): 03/02/22 - 03/03/[address] [address]- Encounter Diagnosis Suicidal ideation(Final) - 03/03/22 Discharge Disposition: Transfer to Psych Facility Attending Physician: Nathan Jhaveri DO Admitting Physician: Nathan Jhaveri DO Referring Physician: Not on Staff, Referring MD Allergies, Adverse Reactions, Alerts Substance Reaction Severity Status codeine Active lithium 1 Active Macrobid Active penicillin Active predniSONE Active sulfa drugs [...] tablet, 0 Refills, Maintenance, 01/04/22 11:12:00 EDT, [facility], Partial fill upon patient request if [...] a day, # 12 Gm, 2 Refills, [facility], 165, cm, 12/19/21 10:41:00 EST, Height, [...] 04/04/22 12:34:00 EDT, 01/04/22 12:34:00 EDT, Tablet, [facility], Partial fill upon patient request if the prescription is f... Start Date: 01/04/22 Stop Date: 04/04/22 Status: Ordered metFORMIN 500 mg oral tablet See Instructions, TAKE 1 EACH BY MOUTH 2 TIMES A DAY, # 60 tablet, 5 Refills, [facility],165, cm, 01/19/22 13:55:00 EDT, Height, 103, [...] 01/04/22 11:12:00 EDT, Route to Pharmacy Electronically, [facility], 165, cm, 12/19/21 10:41:00 EST, Height, [...] 01/19/22 10:48:00 EDT, Route to Pharmacy Electronically, [facility], Partial fill upon patient request if [...] Refills, Maintenance, 05/09/21 8:45:00 EDT, SR Tablet, [facility], 165, cm, 04/11/21 7:42:00 EDT, Height, [...] 1 2 3 Oxygen Saturation [94-100 %] 96 % (03/03/22 9:34 AM) 96 % (03/03/22 2:12 AM) 97 % (03/02/22 11:36 PM) Pulse Rate [55-90 bpm] 78 bpm (03/03/22 9:34 AM) 84 bpm (03/03/22 2:12 AM) 114 bpm *H* (03/02/22 11:36 PM) Blood Pressure [90-138/55-84 mm Hg] 117/72mm Hg (5/20/22 9:34 AM) 114/73mm Hg (03/03/22 2:12 AM) 113/67mm Hg (03/02/22 11:36 PM) Respiratory Rate [16-30 br/min] 17 br/min (03/03/22 9:34 AM) 16 br/min (03/03/22 2:12 AM) 18 br/min (03/02/22 11:36 PM) Temperature [96.8-100.4 DegF] 97.4 DegF (03/03/22 9:34 AM) 98.5 DegF (03/02/22 11:36 PM) Mode of Delivery (Oxygen) Room air (03/03/22 9:34 AM) Room air (03/03/22 2:12 AM) Room air (03/02/22 11:36 PM) Blood pressure sites Arm, left (03/03/22 9:34 AM) Arm, right (03/03/22 2:12 AM) Arm, right (03/02/22 11:36 PM) Temperature Route Oral (03/02/22 11:36 PM) Social History Social History Type Response Smoking Status 10 or more cigarette s (1/2 pack or more)/day in last 30 days; Type: Cigarettes; Other: Reports smoking 1/2-1 packs/day, ending on level of stress; Started at age: 25; entered on: 12/31/20 Sex
--- OUTSIDE RECORDS SUMMARY | 2023-07-16 14:42 | XMS_ITS | Continuity of Care Document ---
Author Name Unknown Organization [facility] ter Address [address] [place] [id number]- Care Team Providers Care Sheet Combining Operator Name Role Phone Jr LE, Michelle Miles Primary Care Physician Encounter [facility] Date(s): 12/18/20 - 12/21/[address] [address]- Encounter Diagnosis Tylenol overdose(Final) - 12/18/20 Discharge Disposition: Transfer to Psych Facility Attending Physician: Jyotsna LE, Barrington Patricio Admitting Physician: Ashley Kaur MD Referring Physician: Not on Staff, Referring [...] Patient Refuses 1Early/Late Reason: Nursing Judgment Medications benztropine 1 mg oral tablet 1 mg, 1, tablet, By Mouth, 3 times a day, Refills 0, Maintenance, 07/22/20 18:38:00 EDT Start Date: 07/22/20 Status: Ordered chlorproMAZINE 25 mg oral tablet = 25 mg, By Mouth, Every 8 hours, PRN Agitation Anxiety, # 90 tablet, 0 Refills, Maintenance, 02/09/20 10:08:00 EDT, Tablet, [facility], 165, cm, 02/08/20 19:47:00 EDT, Height, 104.5, kg,02/07/20 8:15:00 EDT, Dry Weight Start Date: 02/09/20 Status: Ordered Colace sodium 100 mg oral capsule 100 mg, 1, capsule, By Mouth, 2 times a day, PRN, # 60 capsule, Refills 0, Tot. Refills 0, Maintenance, Constipation, 02/09/20 10:08:00 EDT, Route to Pharmacy Electronically, [facility], 165, cm, 02/08/20 19:47:00 EDT, Height, 104.5, kg, 04/... Start Date: 02/09/20 Status: Ordered doxazosin 1 mg oral tablet 3 mg, 3, tablet, By Mouth, Daily at bedtime, # 90 tablet, Refills 0, Tot. Refills 0, Maintenance, 07/22/20 18:41:00 EDT, Route to Pharmacy Electronically, [facility], 163.5, cm, 07/22/20 18:29:00 EDT, Height, 102.5, kg, 07/18/20 21:04:00 EDT... Start Date: 07/22/20 Status: Ordered ferrous sulfate 325 mg oral enteric coated tablet 325 mg, 1, tablet, By Mouth, Daily, # 30 tablet, Refills 0, Tot. Refills 0, Maintenance, 09/24/20 9:06:00 EST, Route to Pharmacy Electronically, [facility], Partial fill upon patient request if the prescription is for a schedule II opioid Start Date: 09/24/20 Status: Ordered Flovent HFA 110 mcg/inh inhalation aerosol 2 puffs = 220 mcg, Inhalation, 2 times a day, # 1 each, 0 Refills, Maintenance, 02/09/20 10:06:00 EDT, Aerosol, [facility], 165, cm, 02/08/20 19:47:00 EDT, Height, 104.5, kg, 02/07/20 8:15:00 EDT, Dry Weight Start Date: 02/09/20 Status: Ordered Haldol Decanoate decanoate 100 mg/ml injectable solution = 100 mg, Intramuscular, Every 28 days, last dose given on 09/17/2020. Next due 10/15/20., # 1 each, 0Refills, Soft Stop, 07/22/20 18:42:00 EDT, Solution, [facility], 163.5, cm, 07/22/20 18:29:00 EDT, Height, 102.5, kg, 07/18/20 21:04:00 EDT,... Start Date: 07/22/20 Status: Ordered lisinopril 5 mg oral tablet 5 mg, 1, tablet, By Mouth, Daily, # 30 tablet, Refills 0, Tot. Refills 0, Maintenance, 02/09/20 10:10:00 EDT, Route to Pharmacy Electronically, [facility], 165, cm, 02/08/20 19:47:00 EDT, Height, 104.5, kg, 02/07/20 8:15:00 EDT, Dry Weight Start Date: 02/09/20 Status: Ordered lisinopril 5 mg oral tablet 5 mg, Tablet, By Mouth, 12/21/20 9:00:00 EST Start Date: 12/21/20 Stop Date: 12/21/20 Status: Completed LORazepam 1 mg oral tablet See Instructions, [...] EDT, Tablet Start Date: 07/18/20 Status: Ordered montelukast 10 mg oral tablet 10 mg, 1, tablet, By Mouth, Daily, # 30 tablet, Refills 0, Tot. Refills 0, Maintenance, 02/09/20 10:11:00 EDT, Route to Pharmacy Electronically, [facility], 165, cm, 02/08/20 19:47:00 EDT, Height, 104.5, kg, 02/07/20 8:15:00 EDT, Dry Weight Start Date: 02/09/20 Status: Ordered norethindrone 0.35 mg oral tablet 1 tablet = 0.35 mg, By Mouth, Daily, # 30 tablet, 0 Refills, Maintenance, 02/09/20 10:07:00 EDT, Tablet, [facility], 165, cm, 02/08/20 19:47:00 EDT, Height, 104.5, kg, 02/07/20 8:15:00 EDT,Dry Weight Start Date: 02/09/20 Status: Ordered pantoprazole 40 mg oral delayed release tablet 1 tablet = 40 mg, By Mouth, 2 times a day, # 28 tablet, 1 Refills, Maintenance, 11/05/19 10:55:00 EST, [facility] Tablet, 165, cm, 11/05/19 9:24:00 EST, Height, 106, kg, 10/24/19 22:50:00 EST, Dry Weight Start Date: 11/05/19 Stop Date: 12/03/19 Status: Ordered polyethylene glycol 3350 oral powder for reconstitution = 17 Gm, By Mouth, Daily, dissolve in water before taking, # 527 Gm, 0 Refills, Maintenance, 09/24/20 9:09:00 EST, REC Powder, [facility], Partial fill upon patient request if the prescription is for a schedule II opioid drug., 17 Gm By Mout... Start Date: 09/24/20 Status: Ordered Ventolin HFA 108 mcg/inh inhalation aerosol with adapter 2 puffs = 180 mcg, Inhalation, 4 times a day, PRN for wheezing, # 1 each, 0 Refills, Maintenance, 02/09/20 10:05:00 EDT, Inhaler, [facility], 165, cm, 02/08/20 19:47:00 EDT, Height, 104.5, kg, 02/07/20 8:15:00 EDT, Dry Weight Start Date: 02/09/20 Stop Date: 03/10/20 Status: Ordered verapamil 240 mg/12 hours oral tablet, extended release 1 tablet = 240 mg, By Mouth, Daily at bedtime, # 30 tablet, 0 Refills, Maintenance, 02/09/20 10:14:00 EDT, SR Tablet, [facility], 165, cm, 02/08/20 19:47:00 EDT, Height, 104.5, kg, 208:15:00 EDT, Dry Weight Start Date: 02/09/20 Status: Ordered Verapamil SR Tablet 240 mg, SR Tablet, By Mouth, 12/21/20 9:00:00 EST Start Date: 12/21/20 Stop Date: 12/21/20 Status: Completed Problem List Condition Effective Dates Status Health Status Inform ant Asthma(Confirmed) Active Borderline personality disorder(Confirmed) Active Chronic abdominal pain(Confirmed) Active Chronic post-traumatic stres s disorder (PTSD)(Confirmed) Active Depression(Confirmed) Active GERD (gastroesophageal reflu x disease)(Confirmed) Active Hyperlipidemia NOS(Confirmed) Active Hypertension(Confirmed) Active Anemia, iron deficiency(Confirmed) Active Nicotine dependence(Confirmed) Active Depression, major, recurrent , severe with psychosis(Confirmed) Active Single major depressive episode(Confirmed) Active Tobacco dependence(Confirmed) Active Vital Signs Most recent to oldest [Reference Range]: 1 2 3 Height 162 cm (12/21/20 7:53 AM) 162 cm (12/20/20 3:21 PM) 162 cm (12/20/20 7:57 AM) Weight 112.1 kg (12/18/20 6:50 PM) Oxygen Saturation [94-100 %] 94 % (12/21/20 7:53 AM) 94 % (12/20/20 11:00 PM) 93 % *L* (12/20/20 7:00 PM) Pulse Rate [55-90 bpm] 100 bpm *H* (12/21/20 8:29 AM) 100 bpm *H* (12/21/20 7:53 AM) 89 bpm (12/20/20 11:00 PM) Body Mass Index [18.5-24.99] 42.71 *>HHI* (12/18/20 6:50 PM) Blood Pressure [90-138/55-84 mm Hg] 112/75mm Hg (12/21/20 8:30 AM) 112/75mm Hg (12/21/20 8:29 AM) 111/72mm Hg (12/21/20 7:53 AM) Respiratory Rate [16-30 br/min] 18 br/min (12/21/20 7:53 AM) 19 br/min (12/20/20 11:00 PM) 19 br/min (12/20/20 7:00 PM) Temperature [96.8-100.4 DegF] 97.9 DegF (12/21/20 7:53 AM) 98.1 DegF (12/20/20 11:00 PM) 98.7 DegF (12/20/20 7:00 PM) Mode of Delivery (Oxygen) Room air (12/21/20 7:53 AM) Room air (12/20/20 11:00 PM) Room air (12/20/20 7:00 PM) Blood pressure sites Arm, left (12/21/20 7:53 AM) Arm, left (12/20/20 11:00 PM) Arm, left (12/20/20 7:00 PM) Temperature Route Oral (12/21/20 7:53 AM) Oral (12/20/20 11:00 PM) Oral (12/20/20 7:00 PM) Dry Weight 122.1 kg (12/18/20 6:50 PM) Social History Social History Type Response Smoking Status 10 or more cigarette s (1/2 pack or more)/day in last 30 days; Type: Cigarettes; Other: Reports smoking 1 to 2 packs/day, ending on level of stress; Started at age: 25; entered on: 12/19/20 Sex
--- OUTSIDE RECORDS SUMMARY | 2023-07-16 14:42 | XMS_ITS | Continuity of Care Document ---
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 Role Phone Michelle Norris MD Primary Care Physician [place] [facility] [place] 09/27/[address] [id number]- Encounter Diagnosis Suicidal ideation(Final) - 09/26/20 Auditory hallucination(Final) - 09/26/20 Discharge Disposition: A-D/C Home Attending Physician: Nathan Dukes MD Admitting Physician: Nathan Dukes MD Referring Physician: Not on Staff, Referring [...] 0 Refills, Maintenance, 02/09/20 10:07:00 EDT, Tablet, [facility], 165, cm, 02/08/20 19:47:00 EDT, Height, 104.5, kg, 02/07/20 8:15:00 EDT, Dry Weight Start Date: 02/09/20 Status: Ordered benztropine 1 mg oral tablet 1 mg, 1, tablet, By Mouth, 3 times a day, Refills 0, Maintenance, 07/22/20 18:38:00 EDT Start Date: 07/22/20 Status: Ordered chlorproMAZINE 25 mg oral tablet = 25 mg, By Mouth, Every 8 hours, PRN Agitation Anxiety, # 90 tablet, 0 Refills, Maintenance, 02/09/20 10:08:00 EDT, Tablet, [facility], 165, cm, 02/08/20 19:47:00 EDT, Height, 104.5, kg,02/07/20 8:15:00 EDT, Dry Weight Start Date: 02/09/20 Status: Ordered Claritin 10 mg oral tablet 10 mg, 1, tablet, By Mouth, Daily, # 30 tablet, Refills 0, Tot. Refills 0, Maintenance, 02/09/20 10:10:00 EDT, Route to Pharmacy Electronically, [facility], 165, cm, 02/08/20 19:47:00 EDT, Height, 104.5, kg, 02/07/20 8:15:00 EDT, Dry Weight Start Date: 02/09/20 Status: Ordered Colace sodium 100 mg oral capsule 100 mg, 1, capsule, By Mouth, 2 times a day, PRN, # 60 capsule, Refills 0, Tot. Refills 0, Maintenance, Constipation, 02/09/20 10:08:00 EDT, Route to Pharmacy Electronically, [facility], 165, cm, 02/08/20 19:47:00 EDT, Height, 104.5, kg, 04/... Start Date: 02/09/20 Status: Ordered doxazosin 1 mg oral tablet 3 mg, 3, tablet, By Mouth, Daily at bedtime, # 90 tablet, Refills 0, Tot. Refills 0, Maintenance, 07/22/20 18:41:00 EDT, Route to Pharmacy Electronically, [facility], 163.5, cm, 07/22/20 18:29:00 EDT, Height, 102.5, kg, 07/18/20 21:04:00 EDT... Start Date: 07/22/20 Status: Ordered ferrous sulfate 325 mg oral enteric coated tablet 325 mg, 1, tablet, By Mouth, Daily, # 30 tablet, Refills 0, Tot. Refills 0, Maintenance, 09/24/20 9:06:00 EST, Route to Pharmacy Electronically, [facility], Partial fill upon patient request if the prescription is for a schedule II opioid . Start Date: 09/24/20 Status: Ordered Flonase 50 mcg/inh nasal spray 1 sprays = 50 mcg, Nares, Both, 2 times a day, # 16 Gm, 0 Refills, Maintenance, 02/09/20 10:09:00 EDT, Nasal [place], [facility], 1 sprays Nares, Both 2 times a day,x30 days, 165, cm, 02/08/20 19:47:00 EDT, Height, 104.5, kg, 02/07/20 8:15:00... Start Date: 02/09/20 Stop Date: 03/10/20 Status: Ordered Flovent HFA 110 mcg/inh inhalation aerosol 2 puffs = 220 mcg, Inhalation, 2 times a day, # 1 each, 0 Refills, Maintenance, 02/09/20 10:06:00 EDT, Aerosol, [facility], 165, cm, 02/08/20 19:47:00 EDT, Height, 104.5, kg, 02/07/20 8:15:00 EDT, Dry Weight Start Date: 02/09/20 Status: Ordered Haldol Decanoate decanoate 100 mg/ml injectable solution = 100 mg, Intramuscular, Every 28 days, last dose given on 09/17/2020. Next due 10/15/20., # 1 each, 0Refills, Soft Stop, 07/22/20 18:42:00 EDT, Solution, [facility], 163.5, cm, 07/22/20 18:29:00 EDT, Height, 102.5, kg, 07/18/20 21:04:00 EDT,... Start Date: 07/22/20 Status: Ordered ibuprofen 400 mg oral tablet 400 mg, 1, tablet, By Mouth, Every 6 hours, PRN, # 60 tablet, Refills 0, Maintenance, for pain, 07/18/20 19:57:00 EDT Start Date: 07/18/20 Status: Ordered lisinopril 5 mg oral tablet 5 mg, 1, tablet, By Mouth, Daily, # 30 tablet, Refills 0, Tot. Refills 0, Maintenance, 02/09/20 10:10:00 EDT, Route to Pharmacy Electronically, [facility], 165, cm, 02/08/20 19:47:00 EDT, Height, 104.5, kg, 02/07/20 8:15:00 EDT, Dry Weight Start Date: 02/09/20 Status: Ordered lisinopril 5 mg oral tablet 5 mg, Tablet, By Mouth, 09/27/20 9:00:00 EST Start Date: 09/27/20 Stop Date: 09/27/20 Status: Completed LORazepam 1 mg oral tablet [...] day, # 60 tablet, 0 Refills, Maintenance, 09/24/20 9:06:00 EST, Tablet, [facility], Partial fill upon patient request if the prescription is for a schedule II opioid drug., 165, cm, 09/23/20 19:58:00 ES... Start Date: 09/24/20 Status: Ordered montelukast 10 mg oral tablet 10 mg, 1, tablet, By Mouth, Daily, # 30 tablet, Refills 0, Tot. Refills 0, Maintenance, 02/09/20 10:11:00 EDT, Route to Pharmacy Electronically, [facility], 165, cm, 02/08/20 19:47:00 EDT, Height, 104.5, kg, 02/07/20 8:15:00 EDT, Dry Weight Start Date: 02/09/20 Status: Ordered Nicotine Lozenge See Instructions, for nicotine cravings - patient has at home, 0 Refills, Maintenance, 09/24/20 9:11:00 EST, Partial fill upon patient request if the prescription is for a schedule II opioid drug. Start Date: 09/24/20 Status: Ordered norethindrone 0.35 mg oral tablet 1 tablet = 0.35 mg, By Mouth, Daily, # 30 tablet, 0 Refills, Maintenance, 02/09/20 10:07:00 EDT, Tablet, [facility], 165, cm, 02/08/20 19:47:00 EDT, Height, [...] Refills, Maintenance, 09/24/20 9:09:00 EST, REC Powder, [facility], Partial fill upon patient request if the prescription is for a schedule II opioid drug., 17 Gm By Mout... Start Date: 09/24/20 Status: Ordered traZODone 50 mg oral tablet 150 mg, 3, tablet, By Mouth, Daily at bedtime, PRN, Refills 0, Maintenance, Sleep, 07/22/20 18:41:00 EDT Start Date: 07/22/20 Status: Ordered Ventolin HFA 108 mcg/inh inhalation aerosol with adapter 2 puffs = 180 mcg, Inhalation, 4 times a day, PRN for wheezing, # 1 each, 0 Refills, Maintenance, 02/09/20 10:05:00 EDT, Inhaler, [facility], 165, cm, 02/08/20 19:47:00 EDT, Height, 104.5, kg, 02/07/20 8:15:00 EDT, Dry Weight Start Date: 02/09/20 Stop Date: 03/10/20 Status: Ordered verapamil 240 mg/12 hours oral tablet, extended release 1 tablet = 240 mg, By Mouth, Daily at bedtime, # 30 tablet, 0 Refills, Maintenance, 02/09/20 10:14:00 EDT, SR Tablet, [facility], 165, cm, 02/08/20 19:47:00 EDT, Height, [...] 3 Oxygen Saturation [94-100 %] 96 % (09/27/20 12:37 PM) 97 % (09/27/20 6:31 AM) 98 % (09/26/20 2:20 PM) Pulse Rate [55-90 bpm] 98 bpm *H* (09/27/20 12:37 PM) 89 bpm (09/27/20 6:31 AM) 108 bpm *H* (09/26/20 2:20 PM) Blood Pressure [90-138/55-84 mm Hg] 139/94mm Hg *H* (09/27/20 12:37 PM) 130/74mm Hg (12/14/20 8:57 AM) 132/74mm Hg (09/27/20 6:31 AM) Respiratory Rate [16-30 br/min] 18 br/min (09/27/20 12:37 PM) 18 br/min (09/27/20 6:31 AM) 16 br/min (09/26/20 2:20 PM) Temperature [96.8-100.4 DegF] 98.1 DegF (09/27/20 6:31 AM) 98.1 DegF (09/26/20 2:20 PM) 98.1 DegF (09/26/20 3:26 AM) Mode of Delivery (Oxygen) Room air (09/27/20 12:37 PM) Room air (09/27/20 6:31 AM) Room air (09/26/20 2:20 PM) Blood pressure sites Arm, right (09/27/20 12:37 PM) Arm, right (09/27/20 6:31 AM) Arm, right (09/26/20 2:20 PM) Temperature Route Oral (09/27/20 6:31 AM) Oral (09/26/20 2:20 PM) Oral (09/26/20 3:26 AM) Social History Social History Type Response Smoking Status 10 or more cigarette s (1/2 pack or more)/day in last 30 days; Use: smokes 1 pack a day entered on: 05/10/19 Sex
--- OUTSIDE RECORDS SUMMARY | 2023-07-16 14:42 | XMS_ITS | Continuity of Care Document ---
Author Name Unknown Organization [facility] ter Address [address] [place] [id number]- Care Team Providers Care Technician [employer] Name Role Phone Michelle Norris MD Primary Care Physician Encounter [facility] [place] Date(s): 12/15/20 - 12/16/[address] [address]- Encounter Diagnosis Suicidal ideation(Final) - 12/15/20 Discharge Disposition: A-D/C Home Attending Physician: Dylan Andrews DO Admitting Physician: Dylan Andrews DO Referring Physician: Not on Staff, Referring [...] 0 Refills, Maintenance, 02/09/20 10:07:00 EDT, Tablet, [facility], 165, cm, 02/08/20 19:47:00 EDT, Height, [...] 0 Refills, Maintenance, 02/09/20 10:08:00 EDT, Tablet, [facility], 165, cm, 02/08/20 19:47:00 EDT, Height, 104.5, kg,02/07/20 8:15:00 EDT, Dry Weight Start Date: 02/09/20 Status: Ordered Claritin 10 mg oral tablet 10 mg, 1, tablet, By Mouth, Daily, # 30 tablet, Refills 0, Tot. Refills 0, Maintenance, 02/09/20 10:10:00 EDT, Route to Pharmacy Electronically, [facility], 165, cm, 02/08/20 19:47:00 EDT, Height, 104.5, kg, 02/07/20 8:15:00 EDT, Dry Weight Start Date: 02/09/20 Status: Ordered Colace sodium 100 mg oral capsule 100 mg, 1, capsule, By Mouth, 2 times a day, PRN, # 60 capsule, Refills 0, Tot. Refills 0, Maintenance, Constipation, 02/09/20 10:08:00 EDT, Route to Pharmacy Electronically, [facility], 165, cm, 02/08/20 19:47:00 EDT, Height, 104.5, kg, 04/... Start Date: 02/09/20 Status: Ordered doxazosin 1 mg oral tablet 3 mg, 3, tablet, By Mouth, Daily at bedtime, # 90 tablet, Refills 0, Tot. Refills 0, Maintenance, 07/22/20 18:41:00 EDT, Route to Pharmacy Electronically, [facility], 163.5, cm, 07/22/20 18:29:00 EDT, Height, 102.5, kg, 07/18/20 21:04:00 EDT... Start Date: 07/22/20 Status: Ordered ferrous sulfate 325 mg oral enteric coated tablet 325 mg, 1, tablet, By Mouth, Daily, # 30 tablet, Refills 0, Tot. Refills 0, Maintenance, 09/24/20 9:06:00 EST, Route to Pharmacy Electronically, [facility], Partial fill upon patient request if the prescription is for a schedule II opioid . Start Date: 09/24/20 Status: Ordered Flonase 50 mcg/inh nasal spray 1 sprays = 50 mcg, Nares, Both, 2 times a day, # 16 Gm, 0 Refills, Maintenance, 02/09/20 10:09:00 EDT, Nasal [place], [facility], 1 sprays Nares, Both 2 times a day,x30 days, 165, cm, 02/08/20 19:47:00 EDT, Height, 104.5, kg, 02/07/20 8:15:00... Start Date: 02/09/20 Stop Date: 03/10/20 Status: Ordered Flovent HFA 110 mcg/inh inhalation aerosol 2 puffs = 220 mcg, Inhalation, 2 times a day, # 1 each, 0 Refills, Maintenance, 02/09/20 10:06:00 EDT, Aerosol, [facility], 165, cm, 02/08/20 19:47:00 EDT, Height, 104.5, kg, 02/07/20 8:15:00 EDT, Dry Weight Start Date: 02/09/20 Status: Ordered Haldol Decanoate decanoate 100 mg/ml injectable solution = 100 mg, Intramuscular, Every 28 days, last dose given on 09/17/2020. Next due 10/15/20., # 1 each, 0Refills, Soft Stop, 07/22/20 18:42:00 EDT, Solution, [facility], 163.5, cm, 07/22/20 18:29:00 EDT, Height, 102.5, [...] 02/09/20 10:10:00 EDT, Route to Pharmacy Electronically, [facility], 165, cm, 02/08/20 19:47:00 EDT, Height, 104.5, kg, 02/07/20 8:15:00 EDT, Dry Weight Start Date: 02/09/20 Status: Ordered lisinopril 5 mg oral tablet 5 mg, Tablet, By Mouth, 12/16/20 9:00:00 EST Start Date: 12/16/20 Stop Date: 12/16/20 Status: Completed LORazepam 1 mg oral tablet [...] 0 Refills, Maintenance, 09/24/20 9:06:00 EST, Tablet, [facility], Partial fill upon patient request if the prescription is for a schedule II opioid drug., 165, cm, 09/23/20 19:58:00 ES... Start Date: 09/24/20 Status: Ordered montelukast 10 mg oral tablet 10 mg, 1, tablet, By Mouth, Daily, # 30 tablet, Refills 0, Tot. Refills 0, Maintenance, 02/09/20 10:11:00 EDT, Route to Pharmacy Electronically, [facility], 165, cm, 02/08/20 19:47:00 EDT, Height, [...] 0 Refills, Maintenance, 02/09/20 10:07:00 EDT, Tablet, [facility], 165, cm, 02/08/20 19:47:00 EDT, Height, [...] Refills, Maintenance, 09/24/20 9:09:00 EST, REC Powder, [facility], Partial fill upon patient request if [...] 0 Refills, Maintenance, 02/09/20 10:05:00 EDT, Inhaler, [facility], 165, cm, 02/08/20 19:47:00 EDT, Height, 104.5, kg, 02/07/20 8:15:00 EDT, Dry Weight Start Date: 02/09/20 Stop Date: 03/10/20 Status: Ordered verapamil 240 mg/12 hours oral tablet, extended release 1 tablet = 240 mg, By Mouth, Daily at bedtime, # 30 tablet, 0 Refills, Maintenance, 02/09/20 10:14:00 EDT, SR Tablet, [facility], 165, cm, 02/08/20 19:47:00 EDT, Height, 104.5, kg, 208:15:00 EDT, Dry Weight Start Date: 02/09/20 Status: Ordered Verapamil Tablet 240 mg, SR Tablet, By Mouth, 12/15/20 23:08:00 EST Start Date: 12/15/20 Stop Date: 12/15/20 Status: Completed Problem List Condition Effective Dates [...] 3 Oxygen Saturation [94-100 %] 98 % (12/16/20 11:00 AM) 96 % (12/16/20 6:23 AM) 98 % (12/15/20 11:02 PM) Pulse Rate [55-90 bpm] 88 bpm (12/16/20 11:00 AM) 89 bpm (12/16/20 6:23 AM) 98 bpm *H* (12/15/20 11:30 PM) Blood Pressure [90-138/55-84 mm Hg] 118/73mm Hg (12/16/20 11:00 AM) 104/66mm Hg (12/16/20 8:20 AM) 104/66mm Hg (12/16/20 6:23 AM) Respiratory Rate [16-30 br/min] 18 br/min (12/16/20 6:23 AM) 18 br/min (12/15/20 11:02 PM) 20 br/min (12/15/20 9:07 PM) Temperature [96.8-100.4 DegF] 98 DegF (12/16/20 11:00 AM) 98.5 DegF (12/16/20 6:23 AM) 98.1 DegF (12/15/20 11:02 PM) Mode of Delivery (Oxygen) Room air (12/16/20 6:23 AM) Room air (12/15/20 11:02 PM) Room air (12/15/20 9:07 PM) Blood pressure sites Arm, left (12/16/20 6:23 AM) Arm, left (12/15/20 11:02 PM) Temperature Route Oral (12/16/20 6:23 AM) Oral (12/15/20 9:07 PM) Social History Social History Type Response Smoking Status 10 or more cigarette s (1/2 pack or more)/day in last 30 days; Use: smokes 1 pack a day entered on: 05/10/19 Sex
--- OUTSIDE RECORDS SUMMARY | 2023-07-16 14:42 | XMS_ITS | Continuity of Care Document ---
Author Name Unknown Organization [facility] ter Address [address] [place] [id number]- Care Team Providers Care Loom Setter Name Role Phone Maribel Marquez NP Primary Care Physician Encounter [facility] Date(s): 05/26/23 - 05/26/[address] [address]- Encounter Diagnosis Auditory hallucinations(Final) - 05/26/23 Borderline personality disorder(Final) - 05/26/23 Discharge Disposition: A-D/C Home Attending Physician: Chely Flores MD Admitting Physician: Cheyl Flores MD Referring Physician: Not on Staff, Referring [...] Patient Refuses 1Early/Late Reason: Nursing Judgment Medications Albuterol (Eqv-Ventolin HFA) 90 mcg/inh inhalation aerosol 2 puffs, Inhalation, Every 6 hours, PRN Wheezing/Shortness of Breath, # 1 each, 5 Refills, Maintenance, 05/22/23 11:32:00 EDT, [facility], Partial fill upon patient request if the prescription is for a schedule II opioid drug., 2 puffs Inhal... Start Date: 05/22/23 Stop Date: 05/22/24 Status: Ordered albuterol CFC free 90 mcg/inh inhalation aerosol 90 mcg, 1, puffs, Inhalation, Every 4 hours, PRN, # 6.7 Gm, Refills 0, Tot. Refills 0, Maintenance,11/16/22 10:33:00 EST, Inhaler, Route to Pharmacy Electronically, NCPDP_[id number], [facility], 163, cm, 11/16/22 9:43:00 EST, Height, 97.3,... Start Date: 11/16/22 Status: Ordered atorvastatin 10 mg oral tablet 1 tablet = 10 mg, By Mouth, Daily at bedtime, # 30 tablet, 0 Refills, Maintenance, 11/16/22 10:33:00 EST, Tablet, [facility], Partial fill upon patient request if [...] 11/16/22 10:33:00 EST, Route to Pharmacy Electronically, [facility], Partial fill upon patientrequest if the [...] 0 Refills, Maintenance, 11/16/22 10:33:00 EST, Tablet, [facility], Partial fill upon patient request if [...] 11/16/22 10:34:00 EST, Route to Pharmacy Electronically, [facility], Partial fill upon patient request if the prescription is for a schedule II opioid d... Start Date: 11/16/22 Stop Date: 08/13/23 Status: Ordered FLUoxetine 20 mg oral capsule 80 mg, 4, capsule, By Mouth, Daily in AM, # 120 capsule, Refills 0, Tot. Refills 0, Maintenance, 11/16/22 10:34:00 EST, Route to Pharmacy Electronically, [facility], Partial fill upon patient request if [...] 11/16/22 10:34:00 EST, Route to Pharmacy Electronically, [facility], Partial fill upon patientrequest if the [...] 02/12/23 10:51:00 EDT, Route to Pharmacy Electronically, [facility], Partial fill upon patient requestif the [...] 60 tablet, 1 Refills, Maintenance,02/22/23 10:08:00 EDT, [facility], 146, cm, 02/05/23 20:22:00 EDT, Height, [...] 0 Refills, Maintenance, 11/16/22 10:34:00 EST, Tablet, [facility], Partial fill upon patient request if [...] 0 Refills, Maintenance, 11/16/22 10:34:00 EST, Tablet, [facility], Partial fill upon patient request if [...] 11/16/22 10:34:00 EST, Route to Pharmacy Electronically, [facility], Partial fill upon patient request if [...] 11:34:00 EDT, 05/22/23 11:32:00 EDT, ER Tablet, [facility], Partial fill upon patient request if the prescription is for a radha... Start Date: 05/22/23 Stop Date: 05/29/24 Status: Ordered nystatin topical [id number] u/gm cream 1 application, Topically, 2 times a day, # 15 Gm, 0 Refills, Maintenance, 01/05/23 15:04:00 EDT, Cream, [facility], Partial fill upon patient request if the prescription is for a schedule II opioid drug., 1 application Topically 2 times a da... Start Date: 01/05/23 Status: Ordered nystatin topical [id number] u/gm cream 0 Refills, Maintenance, 01/06/23 18:05:00 [...] 11/16/22 10:34:00 EST, Route to Pharmacy Electronically, [facility], Partial fill upon patient request if [...] Maintenance,11/16/22 10:34:00 EST, Route to Pharmacy Electronically, [facility], Partial fill upon patient request if [...] [Reference Range]: 1 Oxygen Saturation [94-100 %] 99 % (05/26/23 5:24 PM) Pulse Rate [55-90 bpm] 96 bpm *H* (05/26/23 5:24 PM) Blood Pressure [90-138/55-84 mm Hg] 119/ 60mm Hg (05/26/23 5:24 PM) Respiratory Rate [16-30 br/min] 17 br/mi n (05/26/23 5:24 PM) Temperature [96.8-100.4 DegF] 98.0 DegF (05/26/23 5:24 PM) Mode of Delivery (Oxygen) Room air (05/26/23 5:24 PM) Blood pressure sites Arm, right (05/26/23 5:24 PM) Temperature Route Oral (05/26/23 5:24 PM) Social History Social History Type Response Smoking Status 10 or more cigarette s (1/2 pack or more)/day in last 30 days; Type: Cigarettes; Other: Reports smoking 1/2-1 packs/day, ending on level of stress; Started at age: 25; entered on: 11/18/22 Sex Note * Nilda Ochoa DO: PERFORM Event Display: Patient Education Leaflets Authored Date: [id number] Psychosis ?? [id number] Psychosis Psychosis is a serious symptom of certain mental health problems. It also can be caused by some physical disease, traumatic experiences, or drugs and toxins. Psychosis involves perceiving reality differently from those around you. The difference between reality and what you think is reality becomesblurred in your mind. There are different kinds of psychosis, depending on the cause: ??? Health problems such as infections, thyroid disorders, some cancers, sleep deprivation, low or high blood sugar levels, or dementia ??? Drug-induced from drugs such as alcohol, methamphetamine, cocaine, LSD, or PCP ??? Bipolar disorder ??? Depression ??? Schizophrenia Symptoms The symptoms of psychosis may not all be the same for each person. But they usually involve: ??? Hallucinations. Seeing, hearing, feeling, or even tasting or smelling things that are not there. ??? Delusions.??Believing something that's not true, or false beliefs that are not part of a person's gnosticist or cultural background. There may also be disturbances in thinking, speech, and behavior. These can include: ??? Hearing voices that others don't hear ??? Seeing things that others don't see ??? Racing thoughts ??? Lack of energy ??? Feeling very fearful ??? Disorganized speech ??? Intentional or unintentional bodily harm to others ??? Paranoia ??? Trouble thinking or concentrating clearly ??? Depression,feeling suicidal ??? Insomnia ??? Withdrawal from those around you Treatment for psychosis depends on the cause. Medicine is often used, with or without psychotherapy. You may need to stay in the hospital. This is to protect you and to carefully monitor medicines. ?? Home care ??? Find a healthcare provider and therapist who meet your needs. Seek help when you feellike your symptoms are returning. ??? Be sure to take your medicine as directed even if you think you don't need it. Never stop your medicine or change the dose without talking with your provider. Never use another person's medicine. ??? If you have trouble paying for your prescription, let your providers know so they can help you find resources. ??? Talk with your family about your feelings and thoughts. Ask them to help you recognize any behavior changes so you can get help and, if needed, medicines can be adjusted. ??? Contact your provider if you feel like your medicine is not working and changes need to be made. ?? Follow-up care is critical It's important to manage your condition by staying in close and regular contact with your healthcare team. Always follow up with your counselor, therapist, or psychiatrist as advised. Don't skip taking your medicine or change it without talking with your healthcare team. Take it as directed even if you think you don't need it. Also: ??? Be certain to tell each of your healthcare providers about all of the prescription medicines, jiew-bbl-bnojcjg medicines, illegal drugs, vitamins, and supplements you take.??Certain supplements interact with medicines. This can result in dangerous side effects.??Ask your pharmacist when you have questions about drug interactions. Tell your provider if you use alcohol and, if you do, howoften and how much you drink. ??? Tell your healthcare provider about all your medical conditions and any recent illnesses, such as infections. ??? Follow-up with lab tests as advised by your healthcare provider. Lab work is very important and can tell your provider the blood level of certain medicines. They can see if your dose needs to be increased or decreased. ?? Crisis care If you or the person is at immediate risk, call or text the National Suicide Lifeline at 988. Or call emergency services at 911. You will be connected to trained crisis counselors. An online chat option is also available. Lifeline is free and available 07/05. The Lifeline will work together with [employer] to make sure you get the care you need. Call 988 if you: ??? Have suicidal thoughts, a suicide plan, and the means to carry out the plan ??? Hear voices that are telling you to harm yourself or others ??? Have trouble breathing ??? Are very confused ??? Are very drowsy or have trouble awakening ??? Faint or lose??consciousness ??? Have arapid heart rate, very low heart rate, or a new irregular heart rate ??? Have a seizure ?? When to seek medical advice Call your healthcare provider right away if any of these occur: ??? Gradual or rapid return of psychotic symptoms ??? Feeling like you want to harm yourself or another ??? Feeling extremely depressed??? Feeling very anxious, agitated, or angry ??? Feeling out of control or being controlled by others ??? Unable to care for yourself ??? Seeing things or hearing voices that you know aren't real ?? Last Reviewed Date: 2021 ?? 2598-1753 The [employer]. All rights reserved. This information is not intended as a substitute for professional medical care. Always follow your healthcare professional's instructions. ?? Patient Care team information Care Team Personnel Name: Rudi Ruiz RN Position: [facility] RN W/OE and Tasks Member Role: Primary Care Nurse Name: Alicja Riggs RN Position: [facility] RN Member Role: Primary Care Nurse Name: Ros Fu RN Position: [facility] RN Member Role: Primary Care Nurse Name: Hilda Mccabe RN Position: [facility] RN Member Role: Primary Care Nurse Name: Rosana Kearney RN Position: [facility] SN RN Member Role: Primary Care Nurse Name: Wil Flood RN Position: [facility] RN Member Role: Primary Care Nurse Name: Gagandeep Sheldon RN Position: [facility] RN Member Role: Primary Care Nurse Name: Alba Daily RN Position: [facility] RN Member Role: Primary Care Nurse Name: Maribel Marquez NP Position: [facility] PCO Associate Professional Member Role: PCP Address: Address: [address] [place] [address]- Name: Jose Ramirez RN Position: [facility] RN Member Role: Primary Care Nurse Name: Brittany Butts RN Position: [facility] AMB Nurse Member Role: Primary Care Nurse Name: Pauline Mcadams RN Position: [facility] RN Member Role: Primary Care Nurse Name: Mary Sánchez RN Position: [facility] RN Member Role: Primary Care Nurse Name: Shama Rosado RN Position: [facility] RN Member Role: Primary Care Nurse Name: Jackie Snyder RN Position: [facility] RN Member Role: Primary Care Nurse Name: Jay Burks NP Position: Reference Physician Member Role: Primary Care Nurse Address: Address: [address] [place] [address] Clinical & [place] [address]- Name: Parvez Kaba MD Position: [facility] Renal MD Member Role: Lifetime Consulting Physician Address: Address: [address] [place] [address] [facility] [place] [address]- Name: Mirna Paul RN Position: [facility] OB RN Member Role: Primary Care Nurse Name: Latonya Rahman RN Position: [facility] Onco RN Member Role: Primary Care Nurse Name: Viki Gonzalez RN Position: [facility] RN Member Role: Primary Care Nurse Name: Claudia Presley RN Position: [facility] RN Member Role: Primary Care Nurse Name: Iris Villa RN Position: [facility] Hospital Deputy Program Manager Member Role: Primary Care Nurse Name: Krissy Pena Position: [facility] ED TIA MCLEAN Name: Henrietta Harrison RN Position: [facility] ED RN W/OE and Tasks Member Role: Patient Care Provider Name: Nilda Ochoa DO Position: [facility] Resident Member Role: ED Resident Address: Address: [address] [place] [address]- Name: Chely Flores MD Position: [facility] Resident Member Role: Admitting Physician Address: Address: [address] [place] [address]- Care Team Related Persons Name: JO-ANN ROMANLIVE IN HOUSEKEEPERINDRA Address: [address] [place] [address] Name: SERVICE UNIT OPERATOR [employer]IL WELLGREGG Address: [address] [place] [address] Name: CARLOS PAZ Address: home [address] [place] [address]
--- OUTSIDE RECORDS SUMMARY | 2023-07-16 14:42 | XMS_ITS | Continuity of Care Document ---
Author Name Unknown Organization [facility] ter Address [address] [place] [address]- Care Team Providers Care Bonded Structures Repairer Name Role Phone Maribel Marquez NP Primary Care Physician Encounter [facility] Date(s): 02/01/23 - 02/02/[address] [address]- Encounter Diagnosis Auditory hallucinations(Final) - 02/01/23 Discharge Disposition: A-D/C Home Attending Physician: Braden Trujillo MD Admitting Physician: Braden Trujillo MD Referring Physician: Not on Staff, Referring MD Allergies, Adverse Reactions, Alerts Substance Reaction Severity Status codeine Active predniSONE Active sulfa drugs Active Macrobid Active lithium 1 Active penicillin Active Zithromax Active Seafood Active Geodon Active [...] 10:33:00 EST, Inhaler, Route to Pharmacy Electronically, NCPDP_[id number], [facility], 163, cm, 11/16/22 9:43:00 EST, Height, 97.3,... Start Date: 11/16/22 Status: Ordered atorvastatin 10 mg oral tablet 1 tablet = 10 mg, By Mouth, Daily at bedtime, # 30 tablet, 0 Refills, Maintenance, 11/16/22 10:33:00 EST, Tablet, [facility], Partial fill upon patient request if [...] 11/16/22 10:33:00 EST, Route to Pharmacy Electronically, [facility], Partial fill upon patientrequest if [...] 0 Refills, Maintenance, 11/16/22 10:33:00 EST, Tablet, [facility], Partial fill upon patient request [...] 11/16/22 10:34:00 EST, Route to Pharmacy Electronically, [facility], Partial fill upon patient request if the prescription is for a schedule II opioid d... Start Date: 11/16/22 Stop Date: 08/13/23 Status: Ordered FLUoxetine 20 mg oral capsule 80 mg, 4, capsule, By Mouth, Daily in AM, # 120 capsule, Refills 0, Tot. Refills 0, Maintenance, 11/16/22 10:34:00 EST, Route to Pharmacy Electronically, [facility], Partial fill upon patient request if [...] 11/16/22 10:34:00 EST, Route to Pharmacy Electronically, [facility], Partial fill upon patientrequest if [...] 11/16/22 10:34:00 EST, Route to Pharmacy Electronically, [facility], [...] 0 Refills, Maintenance, 11/16/22 10:34:00 EST, Tablet, [facility], Partial fill upon patient request if [...] 0 Refills, Maintenance, 11/16/22 10:34:00 EST, Tablet, [facility], Partial fill upon patient request if [...] 11/16/22 10:34:00 EST, Route to Pharmacy Electronically, [facility], Partial fill upon patient request if the prescription is for a schedule I... Start Date: 11/16/22 Status: Ordered montelukast 10 mg oral tablet Refills 0, Maintenance, 01/06/23 18:05:00 EDT, Partial fill upon patient request if the prescription is for a schedule II opioid drug. Start Date: 01/06/23 Status: Ordered nystatin topical [id number] u/gm cream 1 application, Topically, 2 times a day, # 15 Gm, 0 Refills, Maintenance, 01/05/23 15:04:00 EDT, Cream, [facility], Partial fill upon patient request if the prescription is for a schedule II opioid drug., 1 application Topically 2 times a da... Start Date: 01/05/23 Status: Ordered nystatin topical [id number] u/gm cream 0 Refills, Maintenance, 01/06/23 18:05:00 [...] 11/16/22 10:34:00 EST, Route to Pharmacy Electronically, [facility], Partial fill upon patient request if the prescription is for a schedule... Start Date: 11/16/22 Status: Ordered prazosin 1 mg oral capsule 4 mg, Capsule, By Mouth, 02/01/23 21:17:00 EDT Start Date: 02/01/23 Stop Date: 02/01/23 Status: Completed prazosin 1 mg oral capsule Refills 0, [...] Maintenance,11/16/22 10:34:00 EST, Route to Pharmacy Electronically, [facility], Partial fill upon patient request if [...] oldest [Reference Range]: 1 2 3 Height 166 cm (02/01/23 9:10 PM) Weight 98 kg (02/01/23 9:10 PM) Oxygen Saturation [94-100 %] 98 % (02/02/23 1:02 AM) 93 % *L* (02/01/23 11:09 PM) 99 % (02/01/23 9:10 PM) Pulse Rate [55-90 bpm] 81 bpm (02/02/23 1:02 AM) 89 bpm (02/01/23 11:09 PM) Blood Pressure [90-138/55-84 mm Hg] 114/94mm Hg (02/02/23 1:02 AM) 102/58mm Hg (02/01/23 11:09 PM) 131/84mm Hg (02/01/23 9:10 PM) Respiratory Rate [16-30 br/min] 18 br/min (02/01/23 11:09 PM) 14 br/min *L* (02/01/23 9:10 PM) Temperature [96.8-100.4 DegF] 98.6 DegF (02/01/23 9:10 PM) Temperature Route Oral (02/01/23 9:10 PM) Dry Weight 98 kg (02/01/23 9:10 PM) Social History Social History Type Response [...] Kearney RN Position: [facility] SN RN Member Role: Primary Care Nurse Name: Wil Flood RN Position: [facility] [...] Associate Professional Member Role: PCP Address: Address: [address] [place] [address]- Name: Jose Ramirez RN Position: [facility] RN Member Role: Primary Care Nurse Name: Brittany Butts RN Position: [facility] AMB Nurse Member Role: Primary Care Nurse Name: Pauline Mcadams RN Position: [facility] RN [...] Member Role: Primary Care Nurse Address: Address: [address] [place], [place] [id number] Clinical & [place] [address]- [place] Name: Parvez Kaba MD Position: [facility] Renal MD Member Role: Lifetime Consulting Physician Address: Address: [address] [place] [address] [facility] [place] [address]- [place] Name: Mirna Paul RN Position: [facility] OB RN Member Role: Primary Care Nurse Name: Latonya Rahman RN Position: [facility] Onco RN Member Role: Primary Care Nurse Name: Viki Gonzalez RN Position: [facility] RN Member Role: Primary Care Nurse Name: Claudia Presley RN Position: [facility] RN Member Role: Primary Care Nurse Name: Iris Villa RN Position: [facility] Hospital Jumpbasting Machine Operator Member Role: Primary Care Nurse [facility] Attending Position: [facility] ED Attendings Patient Name: Sergio Torres RN Position: [facility] ED RN W/OE and Tasks Member Role: Patient Care Provider Name: Jackie Paz Position: [facility] ED TA [facility] Member Role: Patient Care Provider Name: Braden Trujillo MD Position: [facility] Resident Member Role: ED Attending Physician Address: Address: [address] [place] [address] [place] [address]- [place] Care Team Related Persons Name: JO-ANN ROMANAPPLIED EXERCISE PHYSIOLOGISTINDRA Address: [address] [place] [address] Name: INDUSTRIAL REFRIGERATION MECHANICGREGG Address: [address] [place] [address] Name: CARLOS PAZ Address: [address] [place] [address]
--- OUTSIDE RECORDS SUMMARY | 2023-07-16 14:42 | XMS_ITS | Continuity of Care Document ---
Author Name Unknown Organization [facility] Adult Address [address] [place] [address]- Care Team Providers Care Territory Sales Executive Name Role Phone Maribel Marquez NP Primary Care Physician [place] [facility] [place] 11/06/22 - 12/06/22 [facility] Adult [address] [place] [address]- Allergies, Adverse Reactions, Alerts Substance Reaction Severity [...] 10:33:00 EST, Inhaler, Route to Pharmacy Electronically, [id number], [facility], 163, cm, 11/16/22 9:43:00 EST, Height, 97.3,... Start Date: 11/16/22 Status: Ordered atorvastatin 10 mg oral tablet 1 tablet = 10 mg, By Mouth, Daily at bedtime, # 30 tablet, 0 Refills, Maintenance, 11/16/22 10:33:00 EST, Tablet, [facility], Partial fill upon patient request if the prescription is for a schedule II opioid drug., 163, cm, 11/16/22 9:43:00... Start Date: 11/16/22 Status: Ordered benztropine 1 mg oral tablet 1 mg, 1, tablet, By Mouth, 2 times a day, # 60 tablet, Refills 0, Tot. Refills 0, Maintenance, 11/16/22 10:33:00 EST, Route to Pharmacy Electronically, [facility], Partial fill upon patientrequest if the prescription is for a schedule II op... Start Date: 11/16/22 Status: Ordered chlorproMAZINE 50 mg oral tablet 1 tablet = 50 mg, By Mouth, 3 times a day, PRN Anxiety, # 90 tablet, 0 Refills, Maintenance, 11/16/22 10:33:00 EST, Tablet, [facility], Partial fill upon patient request if the prescriptionis for a schedule II opioid drug., 163, cm, ... Start Date: 11/16/22 Status: Ordered ferrous sulfate 325 mg oral enteric coated tablet 325 mg, 1, tablet, By Mouth, Daily, # 90 tablet, Refills 2, Tot. Refills 2, Maintenance, 11/16/22 10:34:00 EST, Route to Pharmacy Electronically, [facility], Partial fill upon patient request if the prescription is for a schedule II opioid d... Start Date: 11/16/22 Stop Date: 08/13/23 Status: Ordered FLUoxetine 20 mg oral capsule 80 mg, 4, capsule, By Mouth, Daily in AM, # 120 capsule, Refills 0, Tot. Refills 0, Maintenance, 11/16/22 10:34:00 EST, Route to Pharmacy Electronically, [facility], Partial fill upon patient request if the prescription is for a schedule II... Start Date: 11/16/22 Status: Ordered fluPHENAZine 5 mg oral tablet 5 mg, 1, tablet, By Mouth, 2 times a day, # 60 tablet, Refills 0, Tot. Refills 0, Maintenance, 11/16/22 10:34:00 EST, Route to Pharmacy Electronically, [facility], Partial fill upon patientrequest if the prescription is for a schedule II op... Start Date: 11/16/22 Status: Ordered lisinopril 5 mg oral tablet 5 mg, 1, tablet, By Mouth, Daily, # 30 tablet, Refills 0, Tot. Refills 0, Maintenance, 11/16/22 10:34:00 EST, Route to Pharmacy Electronically, [facility], Partial fill upon patient requestif the prescription is for a schedule II opioid kaela... Start Date: 11/16/22 Status: Ordered metFORMIN 500 mg oral tablet 1 each = 500 mg, By Mouth, 2 times a day, # 60 tablet, 0 Refills, Maintenance, 11/16/22 10:34:00 EST, Tablet, [facility], Partial fill upon patient request if the prescription is for a schedule II opioid drug., 163, cm, 11/16/22 9:43:00 EST,... Start Date: 11/16/22 Status: Ordered mirtazapine 15 mg oral tablet 0.5 tablet = 7.5 mg, By Mouth, Daily at bedtime, # 15 tablet, 0 Refills, Maintenance, 11/16/22 10:34:00 EST, Tablet, [facility], Partial fill upon patient request if the prescription is fora schedule II opioid drug., 163, cm, 11/16/22 9:43:... Start Date: 11/16/22 Status: Ordered montelukast 10 mg oral tablet 10 mg, 1, tablet, By Mouth, Daily at bedtime, # 30 tablet, Refills 0, Tot. Refills 0, Maintenance, 11/16/22 10:34:00 EST, Route to Pharmacy Electronically, [facility], Partial fill upon patient request if the prescription is for a schedule I... Start Date: 11/16/22 Status: Ordered pantoprazole 40 mg oral delayed release tablet = 40 mg, By Mouth, Daily, # 30 tablet, 0 Refills, Maintenance, 11/16/22 10:34:00 EST, EC Tablet, 163, cm, 11/16/22 9:43:00 EST, Height, 97.3, kg, 11/13/22 16:31:00 EST, Dry Weight Start Date: 11/16/22 Stop Date: 12/16/22 Status: Ordered prazosin 1 mg oral capsule 4 mg, 4, capsule, By Mouth, Daily at bedtime, # 120 capsule, Refills 0, Tot. Refills 0, Maintenance, 11/16/22 10:34:00 EST, Route to Pharmacy Electronically, [facility], Partial fill upon patient request if the prescription is for a schedule... Start Date: 11/16/22 Status: Ordered traZODone 50 mg oral tablet 150 mg, 3, tablet, By Mouth, Daily at bedtime, # 90 tablet, Refills 0, Tot. Refills 0, Maintenance,11/16/22 10:34:00 EST, Route to Pharmacy Electronically, [facility], Partial fill upon patient request if [...] Team Personnel Name: Rudi Ruiz RN Position: [facility] ED RN W/OE and Tasks Member Role: Primary Care Nurse Name: Alicja Riggs RN Position: [facility] RN Member Role: Primary Care Nurse Name: Harmony Pagan Position: [facility] RN Member Role: Primary Care Nurse Name: Ros Fu RN Position: [facility] RN Member Role: Primary Care Nurse Name: Hilda Mccabe RN Position: [facility] RN Member Role: Primary Care Nurse Name: Rosana Kearney RN Position: [facility] AMB Nurse Member Role: Primary Care Nurse Name: Wil Flood RN Position: [facility] RN Member Role: Primary Care Nurse Name: Gagandeep Sheldon RN Position: [facility] RN Member Role: Primary Care Nurse Name: Chip Morton Position: [facility] Outreach Member Role: Lifetime Consulting Physician Name: Alba Daily RN Position: [facility] RN Member Role: Primary Care Nurse Name: Maribel Marquez NP Position: [facility] PCO Associate Professional Member Role: PCP Address: Address: [address] [place] [address]- [place] Name: Jose Ramirez RN Position: [facility] RN Member Role: Primary Care Nurse Name: Brittany Butts RN Position: [facility] AMB Nurse Member Role: Primary Care Nurse Name: Pauline Mcadams RN Position: [facility] RN Member Role: Primary Care Nurse Name: Mary Sánchez RN Position: [facility] RN Member Role: Primary Care Nurse Name: Shama Rosado RN Position: [facility] RN Member Role: Primary Care Nurse Name: Jackie Snyder RN Position: [facility] RN Member Role: Primary Care Nurse Name: Jay Burks NP Position: Reference Physician Member Role: Primary Care Nurse Address: Address: [address] [place], [place] [id number] [facility] [place] [address]- [place] Name: Parvez Kaba MD Position: [facility] Renal MD Member Role: Lifetime Consulting Physician Address: Address: [address] [place] [address] [facility] [place] [address]- [place] Name: Yoana Ledezma RN Position: [facility] RN Member Role: Primary Care Nurse Name: Mirna Paul RN Position: [facility] OB RN Member Role: Primary Care Nurse Name: Latonya Rahman RN Position: [facility] Onco RN Member Role: Primary Care Nurse Name: Viki Gonzalez RN Position: [facility] RN Member Role: Primary Care Nurse Name: Claudia Presley RN Position: [facility] RN Member Role: Primary Care Nurse Name: Iris Villa RN Position: [facility] Hospital Electric Furnace Operator Member Role: Primary Care Nurse Care Team Related Persons Name: JO-ANN ROMANRELATIONSHIP COUNSELORINDRA Address: [address] [place] [address] Name: DIRECTOR MEDICALGREGG Address: [address] [place] [address] Name: CARLOS PAZ Address: home [address] [place] [address]
--- OUTSIDE RECORDS SUMMARY | 2023-07-16 14:42 | XMS_ITS | Continuity of Care Document ---
Author Name Unknown Organization [facility] Adult Address [address] [place] [address]- Care Team Providers Care Inspector Wire Products Name Role Phone Maribel Marquez NP Primary Care Physician [place] [facility] [place] [facility] Adult [address] [place] [address]- Allergies, Adverse Reactions, Alerts Substance Reaction Severity [...] 0 Refills, Maintenance, 06/28/21 10:16:00 EDT, Tablet, [facility], Partial fill upon patient request if [...] 0 Refills, Maintenance, 02/09/20 10:08:00 EDT, Tablet, [facility], 165, cm, 02/08/20 19:47:00 EDT, Height, 104.5, kg,02/07/20 8:15:00 EDT, Dry Weight Start Date: 02/09/20 Status: Ordered doxazosin 1 mg oral tablet 3 mg, 3, tablet, By Mouth, Daily at bedtime, # 90 tablet, Refills 0, Tot. Refills 0, Maintenance, 07/22/20 18:41:00 EDT, Route to Pharmacy Electronically, [facility], 163.5, cm, 07/22/20 18:29:00 EDT, Height, [...] for a schedule II opioid Start Date: 04/11/21 Stop Date: 01/06/22 Status: Ordered Flovent HFA 110 mcg/inh inhalation aerosol 2 puffs = 220 mcg, Inhalation, 2 times a day, # 3 each, 3 Refills, Maintenance, 05/09/21 8:41:00 EDT, Aerosol, [facility], 165, cm, 04/11/21 7:42:00 EDT, Height, 102.6, kg, 02/12/21 12:14:00 EDT, Dry Weight Start Date: 05/09/21 Status: Ordered Haldol Decanoate decanoate 100 mg/ml injectable solution = 100 mg, Intramuscular, Every 28 days, last dose given on 09/17/2020. Next due 10/15/20., # 1 each, 0Refills, Soft Stop, 07/22/20 18:42:00 EDT, Solution, [facility], 163.5, cm, 07/22/20 18:29:00 EDT, Height, 102.5, kg, 07/18/20 21:04:00 EDT,... Start Date: 07/22/20 Status: Ordered lisinopril 5 mg oral tablet 5 mg, 1, tablet, By Mouth, Daily, # 90 tablet, Refills 1, Tot. Refills 1, Maintenance, 05/09/21 8:43:00 EDT, Route to Pharmacy Electronically, [facility], 165, cm, 04/11/21 7:42:00 EDT, Height, 102.6, kg, 02/12/21 12:14:00 EDT, Dry Weight Start Date: 05/09/21 Status: Ordered loratadine 10 mg oral tablet 10 mg, 1, tablet, By Mouth, Daily, # 90 tablet, Refills 3, Tot. Refills 3, Maintenance, 04/11/21 9:38:00 EDT, [facility], [facility] [...] each, 1 Refills, Maintenance, 05/09/21 8:43:00 EDT,Tablet, [facility], Partial fill upon patient request if the prescription is for a schedule II opioid drug., 165, cm, 04/11/21 7:42:00 EDT, H... Start Date: 05/09/21 Stop Date: 11/05/21 Status: Ordered montelukast 10 mg oral tablet 10 mg, 1, tablet, By Mouth, Daily, # 90 tablet, Refills 1, Tot. Refills 1, Maintenance, 05/09/21 8:45:00 EDT, Route to Pharmacy Electronically, [facility], 165, cm, 04/11/21 7:42:00 EDT, Height, [...] Gm, 5 Refills, Acute, 05/10/21 11:59:00 EDT, [facility], 15, TAKE 17 GM BY MOUTH [...] 0 Refills, Maintenance, 02/09/20 10:05:00 EDT, Inhaler, [facility], 165, cm, 02/08/20 19:47:00 EDT, Height, 104.5, kg, 02/07/20 8:15:00 EDT, Dry Weight Start Date: 02/09/20 Stop Date: 03/10/20 Status: Ordered verapamil 240 mg/12 hours oral tablet, extended release 1 tablet = 240 mg, By Mouth, Daily at bedtime, # 90 tablet, 1 Refills, Maintenance, 05/09/21 8:45:00 EDT, SR Tablet, [facility], 165, cm, 04/11/21 7:42:00 EDT, Height, [...]
--- OUTSIDE RECORDS SUMMARY | 2023-07-16 14:42 | XMS_ITS | Continuity of Care Document ---
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 Start Date: 04/11/21 Stop Date: 01/06/22 Status: Ordered Flovent HFA 110 mcg/inh inhalation aerosol 2 puffs, Inhalation, 2 times a day, # 12 Gm, 1 Refills, [facility], 162, cm, 03/20/22 19:50:00 EDT, Height, [...] A DAY, # 60 tablet, 5 Refills, [facility],165, cm, 01/19/22 13:55:00 EDT, Height, 103, [...] 01/04/22 11:12:00 EDT, Route to Pharmacy Electronically, [facility], 165, cm, 12/19/21 10:41:00 EST, Height, [...] 01/19/22 10:48:00 EDT, Route to Pharmacy Electronically, [facility], Partial fill upon patient request if [...] Refills, Maintenance, 05/09/21 8:45:00 EDT, SR Tablet, [facility], 165, cm, 04/11/21 7:42:00 EDT, Height, [...]
--- OUTSIDE RECORDS SUMMARY | 2023-07-16 14:43 | XMS_ITS | Continuity of Care Document ---
Author Name Unknown Organization [facility] ter Address [address] [place] [address]- Care Team Providers Care Cmo Name Role Phone Maribel Marquez NP Primary Care Physician [place] [facility] [place] 10/02/21 - 10/04/[address] [address]- Discharge Disposition: A-D/C Home Attending Physician: Robby Trinidad MD Admitting Physician: Robby Trinidad MD Referring Physician: Not on Staff, Referring MD Allergies, Adverse Reactions, Alerts Substance Reaction Severity Status codeine Active lithium 1 Active sulfa drugs Active penicillin Active predniSONE Active Macrobid Active [...] 0 Refills, Maintenance, 02/09/20 10:08:00 EDT, Tablet, [facility], 165, cm, 02/08/20 19:47:00 EDT, Height, 104.5, kg,02/07/20 8:15:00 EDT, Dry Weight Start Date: 02/09/20 Status: Ordered doxazosin 1 mg oral tablet 3 mg, 3, tablet, By Mouth, Daily at bedtime, # 90 tablet, Refills 0, Tot. Refills 0, Maintenance, 07/22/20 18:41:00 EDT, Route to Pharmacy Electronically, [facility], 163.5, cm, 07/22/20 18:29:00 EDT, Height, [...] 3 Refills, Maintenance, 05/09/21 8:41:00 EDT, Aerosol, [facility], 165, cm, 04/11/21 7:42:00 EDT, Height, 102.6, kg, 02/12/21 12:14:00 EDT, Dry Weight Start Date: 05/09/21 Status: Ordered ibuprofen 600 mg oral tablet 600 mg, 1, tablet, By Mouth, Every 6 hours, PRN, # 120 tablet, Refills 0, Tot. Refills 0, Maintenance, Headache, 08/08/21 7:41:00 EDT, Route to Pharmacy Electronically, [facility], Partial fill upon patient request if the prescription is for... Start Date: 08/08/21 Stop Date: 09/07/21 Status: Ordered lisinopril 5 mg oral tablet 5 mg, Tablet, By Mouth, 10/04/21 9:00:00 EST Start Date: 10/04/21 Stop Date: 10/04/21 Status: Completed lisinopril 5 mg oral tablet 5 mg, 1, tablet, By Mouth, Daily, # 90 tablet, Refills 1, Tot. Refills 1, Maintenance, 05/09/21 8:43:00 EDT, Route to Pharmacy Electronically, [facility], 165, cm, 04/11/21 7:42:00 EDT, Height, [...] each, 1 Refills, Maintenance, 05/09/21 8:43:00 EDT,Tablet, [facility], Partial fill upon patient request if the prescription is for a schedule II opioid drug., 165, cm, 04/11/21 7:42:00 EDT, H... Start Date: 05/09/21 Stop Date: 11/05/21 Status: Ordered montelukast 10 mg oral tablet 10 mg, 1, tablet, By Mouth, Daily, # 90 tablet, Refills 1, Tot. Refills 1, Maintenance, 05/09/21 8:45:00 EDT, Route to Pharmacy Electronically, [facility], 165, cm, 04/11/21 7:42:00 EDT, Height, [...] Gm, 5 Refills, Acute, 05/10/21 11:59:00 EDT, [facility], 15, TAKE 17 GM BY MOUTH [...] 0 Refills, Maintenance, 02/09/20 10:05:00 EDT, Inhaler, [facility], 165, cm, 02/08/20 19:47:00 EDT, Height, 104.5, kg, 02/07/20 8:15:00 EDT, Dry Weight Start Date: 02/09/20 Stop Date: 03/10/20 Status: Ordered verapamil 240 mg/12 hours oral tablet, extended release 1 tablet = 240 mg, By Mouth, Daily at bedtime, # 90 tablet, 1 Refills, Maintenance, 05/09/21 8:45:00 EDT, SR Tablet, [facility], 165, cm, 04/11/21 7:42:00 EDT, Height, [...] Exam Date Time Procedure Performing Provider Status 10/02/21 12:57 PM Chest 2 Views Frontal and Lat Jefe Powers; Ralph (Verified) Notes: (Chest 2 Views Frontal and Lat) Reason For Exam: Shortness of Breath, Fever;Other: RESULT: Chest 2 Views Frontal and Lat Chest 2 Views Frontal and Lat Hx of Present Illness: Shortness of breath. COMPARISON: 02/12/2021 FINDINGS: LINES AND TUBES: None. LUNGS AND PLEURA: Clear lungs. Normal pulmonary vascularity. No pleural effusion. No pneumothorax. HEART, MEDIASTINUM AND HENRY: Heart is normal in size. Normal upper mediastinal and hilar contour. BONES AND SOFT TISSUES: No acute abnormality. IMPRESSION: No acute abnormality. WSN: [id number] Ordering Physician: Cyn Foote Dictated By: Camden Nelson MD Dictated Date/Time: 10/02/21 1:12 pm Reviewed By: Camden Nelson MD Signed By: Camden Nelson MD Signed Date/Time: 10/02/21 1:12 pm Transcribed By: DAVIS Transcribed Date/Time: 10/02/21 1:11 pm Vital Signs Most recent to oldest [Reference Range]: 1 2 3 Oxygen Saturation [94-100 %] 98 % (10/04/21 6:58 AM) 98 % (10/03/21 10:37 PM) 100 % (10/03/21 6:35 PM) Pulse Rate [55-90 bpm] 90 bpm (10/04/21 6:58 AM) 75 bpm (10/03/21 10:37 PM) 67 bpm (10/03/21 6:35 PM) Blood Pressure [90-138/55-84 mm Hg] 105/67mm Hg (10/04/21 8:45 AM) 105/67mm Hg (10/04/21 6:58 AM) 127/65mm Hg (10/03/21 10:37 PM) Respiratory Rate [16-30 br/min] 18 br/min (10/04/21 6:58 AM) 17 br/min (10/03/21 10:37 PM) 18 br/min (10/03/21 6:35 PM) Temperature [96.8-100.4 DegF] 97.8 DegF (10/04/21 6:58 AM) 98.1 DegF (10/03/21 10:37 PM) 98 DegF (10/03/21 6:35 PM) Mode of Delivery (Oxygen) Room air (10/04/21 6:58 AM) Room air (10/03/21 10:37 PM) Room air (10/03/21 6:35 PM) Blood pressure sites Arm, right (10/04/21 6:58 AM) Arm, right (10/03/21 10:37 PM) Arm, right (10/03/21 6:35 PM) Temperature Route Oral (10/04/21 6:58 AM) Oral (10/03/21 10:37 PM) Oral (10/03/21 6:35 PM) Social History Social History Type Response Smoking Status 10 or more cigarette s (1/2 pack or more)/day in last 30 days; Type: Cigarettes; Other: Reports smoking 1/2-1 packs/day, ending on level of stress; Started at age: 25; entered on: 12/31/20 Sex
--- OUTSIDE RECORDS SUMMARY | 2023-07-16 14:43 | XMS_ITS | Continuity of Care Document ---
Author Name Unknown Organization [facility] Adult Address [address] [place] [address]- Care Team Providers Care Zoogler Name Role Phone Maribel Marquez NP Primary Care Physician [place] [facility] [place]22[place] [facility] [address] [place] [address]- Allergies, Adverse Reactions, Alerts Substance Reaction Severity [...] 0 Refills, Maintenance, 12/23/20 16:38:00 EST, Tablet, [facility], Partial fill upon patient [...] 0 Refills, Maintenance, 02/09/20 10:08:00 EDT, Tablet, [facility], 165, cm, 02/08/20 19:47:00 EDT, Height, 104.5, kg,02/07/20 8:15:00 EDT, Dry Weight Start Date: 02/09/20 Status: Ordered doxazosin 1 mg oral tablet 3 mg, 3, tablet, By Mouth, Daily at bedtime, # 90 tablet, Refills 0, Tot. Refills 0, Maintenance, 07/22/20 18:41:00 EDT, Route to Pharmacy Electronically, [facility], 163.5, cm, 07/22/20 18:29:00 EDT, Height, 102.5, kg, 07/18/20 21:04:00 EDT... Start Date: 07/22/20 Status: Ordered ferrous sulfate 325 mg oral enteric coated tablet 325 mg, 1, tablet, By Mouth, Daily, # 90 tablet, Refills 2, Tot. Refills 2, Maintenance, 04/11/21 9:22:00 EDT, Route to Pharmacy Electronically, [facility], Partial fill upon patient request if the prescription is for a schedule II opioid drMarcy Start Date: 04/11/21 Stop Date: 01/06/22 Status: Ordered Flovent HFA 110 mcg/inh inhalation aerosol 2 puffs = 220 mcg, Inhalation, 2 times a day, # 1 each, 0 Refills, Maintenance, 12/23/20 15:38:00 EST, Aerosol, [facility], 162, cm, 12/23/20 10:43:00 EST, Height, 122.1, kg, 12/21/20 16:25:00 EST, Dry Weight Start Date: 12/23/20 Status: Ordered Haldol Decanoate decanoate 100 mg/ml injectable solution = 100 mg, Intramuscular, Every 28 days, last dose given on 09/17/2020. Next due 10/15/20., # 1 each, 0Refills, Soft Stop, 07/22/20 18:42:00 EDT, Solution, [facility], 163.5, cm, 07/22/20 18:29:00 EDT, Height, 102.5, kg, 07/18/20 21:04:00 EDT,... Start Date: 07/22/20 Status: Ordered lisinopril 5 mg oral tablet 5 mg, 1, tablet, By Mouth, Daily, # 30 tablet, Refills 0, Tot. Refills 0, Maintenance, 02/09/20 10:10:00 EDT, Route to Pharmacy Electronically, [facility], 165, cm, 02/08/20 19:47:00 EDT, Height, 104.5, kg, 02/07/20 8:15:00 EDT, Dry Weight Start Date: 02/09/20 Status: Ordered loratadine 10 mg oral tablet 10 mg, 1, tablet, By Mouth, Daily, # 90 tablet, Refills 3, Tot. Refills 3, Maintenance, 04/11/21 9:38:00 EDT, Route to Pharmacy Electronically, [facility], Partial fill upon patient requestif [...] 0 Refills, Maintenance, 12/23/20 16:38:00 EST, Tablet, [facility], Partial fill upon patient request if the prescription is for a schedule II opioid drug., 162, cm, 12/23/20 15:59:00 EST... Start Date: 12/23/20 Stop Date: 01/22/21 Status: Ordered montelukast 10 mg oral tablet 10 mg, 1, tablet, By Mouth, Daily, # 30 tablet, Refills 0, Tot. Refills 0, Maintenance, 02/09/20 10:11:00 EDT, Route to Pharmacy Electronically, [facility], 165, cm, 02/08/20 19:47:00 EDT, Height, 104.5, kg, 02/07/20 8:15:00 EDT, Dry Weight Start Date: 02/09/20 Status: Ordered norethindrone 0.35 mg oral tablet 1 tablet = 0.35 mg, By Mouth, Daily, # 30 tablet, 0 Refills, Maintenance, 02/09/20 10:07:00 EDT, Tablet, [facility], 165, cm, 02/08/20 19:47:00 EDT, Height, [...] = 17 Gm, By Mouth, Daily, PRN Constipation, dissolve in water before taking, # 255 Gm, 0 Refills, Maintenance, 04/11/21 9:22:00 EDT, REC Powder, [facility], Partial fill upon patient request if the prescription is for a schedule II opioid drMarcy Start Date: 04/11/21 Stop Date: 07/10/21 Status: Ordered traZODone 150 mg oral tablet [...] 0 Refills, Maintenance, 02/09/20 10:05:00 EDT, Inhaler, [facility], 165, cm, 02/08/20 19:47:00 EDT, Height, 104.5, kg, 02/07/20 8:15:00 EDT, Dry Weight Start Date: 02/09/20 Stop Date: 03/10/20 Status: Ordered verapamil 240 mg/12 hours oral tablet, extended release 1 tablet = 240 mg, By Mouth, Daily at bedtime, # 30 tablet, 0 Refills, Maintenance, 02/09/20 10:14:00 EDT, SR Tablet, [facility], 165, cm, 02/08/20 19:47:00 EDT, Height, [...]
--- OUTSIDE RECORDS SUMMARY | 2023-07-16 14:43 | XMS_ITS | Continuity of Care Document ---
Author Name Unknown Organization [facility] Address [address] [place] [address]- Care Team Providers Care Subsea Engineer Name Role Phone Maribel Marquez NP Primary Care Physician [phone] [place] [facility] [place]): 01/19/22 - 02/18/22 [facility] [address] [place] [address]- Allergies, Adverse Reactions, Alerts Substance Reaction Severity [...] 0 Refills, Maintenance, 01/04/22 11:12:00 EDT, [facility], Partial fill upon patient request if [...] 9:22:00 EDT, Route to Pharmacy Electronically, [facility], Partial fill upon patient request if the prescription is for a schedule II opioid drCheyanne. Start Date: 04/11/21 Stop Date: 01/06/22 Status: Ordered Flovent HFA 110 mcg/inh inhalation aerosol 2 puffs, Inhalation, 2 times a day, # 12 Gm, 2 Refills, [facility], 165, cm, 12/19/21 10:41:00 EST, Height, [...] 04/04/22 12:34:00 EDT, 01/04/22 12:34:00 EDT, Tablet, [facility], Partial fill upon patient request if the prescription is f... Start Date: 01/04/22 Stop Date: 04/04/22 Status: Ordered metFORMIN 500 mg oral tablet See Instructions, TAKE 1 EACH BY MOUTH 2 TIMES A DAY, # 60 tablet, 5 Refills, [facility],165, cm, 01/19/22 13:55:00 EDT, Height, 103, [...] 11:12:00 EDT, Route to Pharmacy Electronically, [facility], 165, cm, 12/19/21 10:41:00 EST, Height, [...] 10:48:00 EDT, Route to Pharmacy Electronically, [facility], Partial fill upon patient request if [...] Maintenance, 05/09/21 8:45:00 EDT, SR Tablet, [facility], 165, cm, 04/11/21 7:42:00 EDT, Height, [...]
--- OUTSIDE RECORDS SUMMARY | 2023-07-16 14:43 | XMS_ITS | Continuity of Care Document ---
Author Name Unknown Organization [facility] ter Address [address] [place] [address]- Care Team Providers Care Food And Nutrition Teacher Name Role Phone Maribel Marquez NP Primary Care Physician Encounter [facility] [place] Date(s): 12/02/22 - 12/02/[address] [address]- Encounter Diagnosis Anxiety(Final) - 12/02/22 PTSD (post-traumatic stress disorder)(Final) - 12/02/22 Discharge Disposition: A-D/C Home Attending Physician: John Lawson MD Admitting Physician: John Lawson MD Referring Physician: Not on Staff, Referring MD Allergies, Adverse Reactions, Alerts Substance Reaction Severity Status codeine Active Macrobid Active lithium 1 Active penicillin Active predniSONE [...] 10:33:00 EST, Inhaler, Route to Pharmacy Electronically, [id number], [facility], 163, cm, 11/16/22 9:43:00 EST, Height, 97.3,... Start Date: 11/16/22 Status: Ordered atorvastatin 10 mg oral tablet 1 tablet = 10 mg, By Mouth, Daily at bedtime, # 30 tablet, 0 Refills, Maintenance, 11/16/22 10:33:00 EST, Tablet, [facility], Partial fill upon patient request if [...] 0 Refills, Maintenance, 11/16/22 10:33:00 EST, Tablet, [facility], Partial fill upon patient request if [...] 11/16/22 10:34:00 EST, Route to Pharmacy Electronically, [facility], Partial fill upon patient request if the prescription is for a schedule... Start Date: 11/16/22 Status: Ordered traZODone 50 mg oral tablet 150 mg, 3, tablet, By Mouth, Daily at bedtime, # 90 tablet, Refills 0, Tot. Refills 0, Maintenance,11/16/22 10:34:00 EST, Route to Pharmacy Electronically, [facility], Partial fill upon patient request if [...] [Reference Range]: 1 Oxygen Saturation [94-100 %] 100 % (12/02/22 8:48 PM) Pulse Rate [55-90 bpm] 98 bpm *H* (12/02/22 8:48 PM) Blood Pressure [90-138/55-84 mm Hg] 123/ 68mm Hg (12/02/22 8:48 PM) Respiratory Rate [16-30 br/min] 16 br/mi n (12/02/22 8:48 PM) Temperature [96.8-100.4 DegF] 98.7 DegF (12/02/22 8:48 PM) Mode of Delivery (Oxygen) Room air (12/02/22 8:48 PM) Blood pressure sites Arm, left (12/02/22 8:48 PM) Temperature Route Oral (12/02/22 8:48 PM) Social History Social History Type Response Smoking Status 10 or more cigarette s (1/2 pack or more)/day in last 30 days; Type: Cigarettes; Other: Reports smoking 1/2-1 packs/day, ending on level of stress; Started at age: 25; entered on: 11/18/22 Sex Patient Care team information Care Team Personnel Name: Rudi Ruiz RN Position: [facility] ED RN W/OE and Tasks Member Role: Primary Care Nurse Name: Alicja Riggs RN Position: [facility] RN Member Role: Primary Care Nurse Name: Harmony Pagan Position: [facility] RN Member Role: Primary Care Nurse Name: Ros Fu RN Position: [facility] RN Member Role: Primary Care Nurse Name: Hilda Mccabe RN Position: [facility] RN Member Role: Primary Care Nurse Name: Rosana Kearney RN Position: [facility] AMB Nurse Member Role: Primary Care Nurse Name: Wil Flood RN Position: [facility] RN Member Role: Primary Care Nurse Name: Gagandeep Sheldon RN Position: [facility] RN Member Role: Primary Care Nurse Name: Chip Morton Position: [facility] Outreach Member Role: Lifetime Consulting Physician Name: Alba Daily RN Position: [facility] RN Member Role: Primary Care Nurse Name: Maribel Marquez NP Position: [facility] PCO Associate Professional Member Role: PCP Address: Address: [address] [place] [address]- Name: Jose Ramirez RN Position: [facility] RN Member Role: Primary Care Nurse Name: Brittany Butts RN Position: [facility] AMB Nurse Member Role: Primary Care Nurse Name: Pauline Mcadams RN Position: [facility] RN Member Role: Primary Care Nurse Name: Mary Sánchez RN Position: [facility] RN Member Role: Primary Care Nurse Name: Shama Rosado RN Position: [facility] RN Member Role: Primary Care Nurse Name: Jackie Snyder RN Position: [facility] RN Member Role: Primary Care Nurse Name: Jay Burks NP Position: Reference Physician Member Role: Primary Care Nurse Address: Address: [address] [place], [place] [id number] [facility] [place] [address]- [place] Name: Parvez Kaba MD Position: [facility] Renal MD Member Role: Lifetime Consulting Physician Address: Address: [address] [place] [address] [facility] [place] [address]- [place] Name: Yoana Ledezma RN Position: [facility] RN Member Role: Primary Care Nurse Name: Mirna Paul RN Position: [facility] OB RN Member Role: Primary Care Nurse Name: Latonya Rahman RN Position: [facility] Onco RN Member Role: Primary Care Nurse Name: Viki Gonzalez RN Position: [facility] RN Member Role: Primary Care Nurse Name: Claudia Presley RN Position: [facility] RN Member Role: Primary Care Nurse Name: Iris Villa RN Position: [facility] Hospital Stopper Grinder Member Role: Primary Care Nurse Name: Jefe An RN Position: [facility] ED RN W/OE and Tasks Member Role: Patient Care Provider Name: John Lawson MD Position: [facility] ED Medicine MD Member Role: Admitting Physician Address: Address: [address] [place] [address] [place] [address]- [place] Care Team Related Persons Name: JO-ANN [employer] FORKLIFT OPERATORINDRA Address: [address] [place] [address] Name: SENIOR TRAINERGREGG Address: [address] [place] [address] Name: CARLOS PAZ Address: home [address] [place] [address]
--- OUTSIDE RECORDS SUMMARY | 2023-07-16 14:43 | XMS_ITS | Continuity of Care Document ---
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 Name Role Phone Maribel Marquez NP Primary Care Physician [phone] [place] [facility] [place]18[place]21 [facility] Adult [address] [place] [address]- Attending Physician: Maribel Marquez NP Allergies, Adverse [...] 0 Refills, Maintenance, 12/23/20 16:38:00 EST, Tablet, [facility], Partial fill upon [...] 0 Refills, Maintenance, 02/09/20 10:08:00 EDT, Tablet, [facility], 165, cm, 02/08/20 19:47:00 EDT, Height, 104.5, kg,02/07/20 8:15:00 EDT, Dry Weight Start Date: 02/09/20 Status: Ordered doxazosin 1 mg oral tablet 3 mg, 3, tablet, By Mouth, Daily at bedtime, # 90 tablet, Refills 0, Tot. Refills 0, Maintenance, 07/22/20 18:41:00 EDT, Route to Pharmacy Electronically, [facility], 163.5, cm, 07/22/20 18:29:00 EDT, Height, 102.5, kg, 07/18/20 21:04:00 EDT... Start Date: 07/22/20 Status: Ordered ferrous sulfate 325 mg oral enteric coated tablet 325 mg, 1, tablet, By Mouth, Daily, # 90 tablet, Refills 2, Tot. Refills 2, Maintenance, 04/11/21 9:22:00 EDT, Route to Pharmacy Electronically, [facility], Partial fill upon patient request if the prescription is for a schedule II opioid drCheyanne. Start Date: 04/11/21 Stop Date: 01/06/22 Status: Ordered Flovent HFA 110 mcg/inh inhalation aerosol 2 puffs = 220 mcg, Inhalation, 2 times a day, # 1 each, 0 Refills, Maintenance, 12/23/20 15:38:00 EST, Aerosol, [facility], 162, cm, 12/23/20 10:43:00 EST, Height, 122.1, kg, 12/21/20 16:25:00 EST, Dry Weight Start Date: 12/23/20 Status: Ordered Haldol Decanoate decanoate 100 mg/ml injectable solution = 100 mg, Intramuscular, Every 28 days, last dose given on 09/17/2020. Next due 10/15/20., # 1 each, 0Refills, Soft Stop, 07/22/20 18:42:00 EDT, Solution, [facility], 163.5, cm, 07/22/20 18:29:00 EDT, Height, 102.5, kg, 07/18/20 21:04:00 EDT,... Start Date: 07/22/20 Status: Ordered lisinopril 5 mg oral tablet 5 mg, 1, tablet, By Mouth, Daily, # 30 tablet, Refills 0, Tot. Refills 0, Maintenance, 02/09/20 10:10:00 EDT, Route to Pharmacy Electronically, [facility], 165, cm, 02/08/20 19:47:00 EDT, Height, 104.5, kg, 02/07/20 8:15:00 EDT, Dry Weight Start Date: 02/09/20 Status: Ordered loratadine 10 mg oral tablet 10 mg, 1, tablet, By Mouth, Daily, # 90 tablet, Refills 3, Tot. Refills 3, Maintenance, 04/11/21 9:38:00 EDT, Route to Pharmacy Electronically, [facility], [...] 0 Refills, Maintenance, 12/23/20 16:38:00 EST, Tablet, [facility], Partial fill upon patient request if the prescription is for a schedule II opioid drug., 162, cm, 12/23/20 15:59:00 EST... Start Date: 12/23/20 Stop Date: 01/22/21 Status: Ordered montelukast 10 mg oral tablet 10 mg, 1, tablet, By Mouth, Daily, # 30 tablet, Refills 0, Tot. Refills 0, Maintenance, 02/09/20 10:11:00 EDT, Route to Pharmacy Electronically, [facility], 165, cm, 02/08/20 19:47:00 EDT, Height, 104.5, kg, 02/07/20 8:15:00 EDT, Dry Weight Start Date: 02/09/20 Status: Ordered norethindrone 0.35 mg oral tablet 1 tablet = 0.35 mg, By Mouth, Daily, # 30 tablet, 0 Refills, Maintenance, 02/09/20 10:07:00 EDT, Tablet, [facility], 165, cm, 02/08/20 19:47:00 EDT, Height, [...] Refills, Maintenance, 04/11/21 9:22:00 EDT, REC Powder, [facility], Partial fill upon patient request [...] 0 Refills, Maintenance, 02/09/20 10:05:00 EDT, Inhaler, [facility], 165, cm, 02/08/20 19:47:00 EDT, Height, 104.5, kg, 02/07/20 8:15:00 EDT, Dry Weight Start Date: 02/09/20 Stop Date: 03/10/20 Status: Ordered verapamil 240 mg/12 hours oral tablet, extended release 1 tablet = 240 mg, By Mouth, Daily at bedtime, # 30 tablet, 0 Refills, Maintenance, 02/09/20 10:14:00 EDT, SR Tablet, [facility], 165, cm, 02/08/20 19:47:00 EDT, Height, [...] oldest [Reference Range]: 1 Height 165 cm (04/11/21 7:42 AM) Social History Social History Type Response Smoking Status 10 or more cigarette s (1/2 pack or more)/day in last 30 days; Type: Cigarettes; Other: Reports smoking 1/2-1 packs/day, ending on level of stress; Started at age: 25; entered on: 3/19/21 Sex
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
--- OUTSIDE RECORDS SUMMARY | 2023-07-16 14:43 | XMS_ITS | Continuity of Care Document ---
Author Name Unknown Organization [facility] ter Address [address] [place] [address]- Care Team Providers Care Endoscopy Nurse Name Role Phone Maribel Marquez NP Primary Care Physician Encounter [facility] [place] Date(s): 05/16/22 - 05/17/[address] [address]- Discharge Disposition: A-D/C Home Attending Physician: Raysa Girard MD Admitting Physician: Raysa Girard MD Referring Physician: Not on Staff, Referring [...] tablet, 0 Refills, Maintenance, 01/04/22 11:12:00 EDT, [facility], Partial fill upon patient request if [...] a day, # 12 Gm, 1 Refills, [facility], 162, cm, 03/20/22 19:50:00 EDT, Height, [...] A DAY, # 60 tablet, 5 Refills, [facility],165, cm, 01/19/22 13:55:00 EDT, Height, 103, [...] 01/04/22 11:12:00 EDT, Route to Pharmacy Electronically, [facility], 165, cm, 12/19/21 10:41:00 EST, Height, 103, kg, 11/26/21 8:59:00 EST, DrRobi.. Start Date: 01/04/22 Status: Ordered Nicotine 2 mg gum 1 each = 2 mg, Chew, Every 2 hours, PRN as needed for smoking cessation, for 4 week(s), # 336 each,1 Refills, Acute 05/19/22 14:46:00 EDT, 03/24/22 14:46:00 EDT, Gum, [facility], Partial fill upon patient request if [...] 01/19/22 10:48:00 EDT, Route to Pharmacy Electronically, [facility], Partial fill upon patient request if [...] Refills, Maintenance, 05/09/21 8:45:00 EDT, SR Tablet, [facility], 165, cm, 04/11/21 7:42:00 EDT, Height, [...] 3 Oxygen Saturation [94-100 %] 97 % (05/17/22 11:20 AM) 97 % (05/17/22 10:12 AM) 97 % (05/17/22 2:20 AM) Pulse Rate [55-90 bpm] 78 bpm (05/17/22 11:20 AM) 76 bpm (05/17/22 10:12 AM) 69 bpm (05/17/22 2:20 AM) Blood Pressure [90-138/55-84 mm Hg] 143/72mm Hg *H* (05/17/22 11:20 AM) 150/78mm Hg *H* (05/17/22 10:12 AM) 131/76mm Hg (05/17/22 2:20 AM) Respiratory Rate [16-30 br/min] 18 br/min (05/17/22 11:20 AM) 16 br/min (05/17/22 10:12 AM) 16 br/min (05/17/22 2:20 AM) Temperature [96.8-100.4 DegF] 98.0 DegF (05/17/22 11:20 AM) 98.0 DegF (05/17/22 10:12 AM) 97.5 DegF (05/17/22 2:20 AM) Mode of Delivery (Oxygen) Room air (05/17/22 11:20 AM) Room air (05/17/22 10:12 AM) Room air (05/17/22 2:20 AM) Blood pressure sites Arm, right (05/17/22 11:20 AM) Arm, right (05/17/22 10:12 AM) Temperature Route Oral (05/17/22 11:20 AM) Oral (05/17/22 10:12 AM) Oral (05/17/22 2:20 AM) Social History Social History Type Response Smoking Status 10 or more cigarette s (1/2 pack or more)/day in last 30 days; Type: Cigarettes; Other: Reports smoking 1/2-1 packs/day, ending on level of stress; Started at age: 25; entered on: 12/31/20 Sex
--- OUTSIDE RECORDS SUMMARY | 2023-07-16 14:43 | XMS_ITS | Continuity of Care Document ---
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 Start Date: 04/11/21 Stop Date: 01/06/22 Status: Ordered Flovent HFA 110 mcg/inh inhalation aerosol 2 puffs, Inhalation, 2 times a day, # 12 Gm, 1 Refills, [facility], 162, cm, 03/20/22 19:50:00 EDT, [...] A DAY, # 60 tablet, 5 Refills, [facility],165, cm, 01/19/22 13:55:00 EDT, Height, [...] 01/04/22 11:12:00 EDT, Route to Pharmacy Electronically, [facility], 165, cm, 12/19/21 10:41:00 EST, Height, 103, kg, 11/26/21 8:59:00 EST, DrRobi.. Start Date: 01/04/22 Status: Ordered Nicotine 2 mg gum 1 each = 2 mg, Chew, Every 2 hours, PRN as needed for smoking cessation, for 4 week(s), # 336 each,1 Refills, Acute 05/19/22 14:46:00 EDT, 03/24/22 14:46:00 EDT, Gum, [facility], Partial fill upon patient request [...] 01/19/22 10:48:00 EDT, Route to Pharmacy Electronically, [facility] [...] Refills, Maintenance, 05/09/21 8:45:00 EDT, SR Tablet, [facility], 165, cm, 04/11/21 7:42:00 EDT, [...] 1 2 3 Oxygen Saturation [94-100 %] 100 % (05/11/22 6:26 AM) 98 % (05/10/22 8:05 PM) 97 % (05/10/22 6:13 PM) Pulse Rate [55-90 bpm] 91 bpm *H* (05/11/22 6:26 AM) 81 bpm (05/10/22 8:05 PM) 85 bpm (05/10/22 6:13 PM) Blood Pressure [90-138/55-84 mm Hg] 124/63mm Hg (05/11/22 6:26 AM) 121/68mm Hg (05/10/22 8:05 PM) 128/72mm Hg (05/10/22 6:13 PM) Respiratory Rate [16-30 br/min] 16 br/min (05/11/22 6:26 AM) 17 br/min (05/10/22 8:05 PM) 18 br/min (05/10/22 6:13 PM) Temperature [96.8-100.4 DegF] 98.0 DegF (05/11/22 6:26 AM) 98.1 DegF (05/10/22 8:05 PM) 98.5 DegF (05/10/22 6:13 PM) Mode of Delivery (Oxygen) Room air (05/11/22 6:26 AM) Room air (05/10/22 8:05 PM) Room air (05/10/22 6:13 PM) Blood pressure sites Arm, right (05/11/22 6:26 AM) Arm, left (05/10/22 8:05 PM) Arm, left (05/10/22 6:13 PM) Temperature Route Oral (05/11/22 6:26 AM) Oral (05/10/22 8:05 PM) Oral (05/10/22 6:13 PM) Social History Social History Type Response Smoking Status 10 or more cigarette s (1/2 pack or more)/day in last 30 days; Type: Cigarettes; Other: Reports smoking 1/2-1 packs/day, ending on level of stress; Started at age: 25; entered on: 12/31/20 Sex
--- OUTSIDE RECORDS SUMMARY | 2023-07-16 14:43 | XMS_ITS | Continuity of Care Document ---
Author Name Unknown Organization [facility] ter Address [address] [place] [address]- Care Team Providers Care Sales Forecast Analyst Name Role Phone Maribel Marquez NP Primary Care Physician [phone] Encounter [facility] Date(s): 02/21/23 - 02/21/[address] [address]- Encounter Diagnosis Auditory hallucinations(Final) - 02/21/23 Suicidal ideation(Final) - 02/21/23 Discharge Disposition: A-D/C Home Attending Physician: Jimmy Alfonso MD Admitting Physician: Jimmy Alfonso MD Referring Physician: Not on Staff, Referring [...] 10:33:00 EST, Inhaler, Route to Pharmacy Electronically, NCPDP_[id number], [facility], 163, cm, 11/16/22 9:43:00 EST, Height, 97.3,... Start Date: 11/16/22 Status: Ordered atorvastatin 10 mg oral tablet 1 tablet = 10 mg, By Mouth, Daily at bedtime, # 30 tablet, 0 Refills, Maintenance, 11/16/22 10:33:00 EST, Tablet, [facility], Partial fill upon patient request if the prescription is for a schedule II opioid drug., 163, juan j, 11/16/22 9:43:00... Start Date: 11/16/22 Status: Ordered [...] 11/16/22 10:33:00 EST, Route to Pharmacy Electronically, [facility], Partial fill upon patientrequest if [...] 0 Refills, Maintenance, 11/16/22 10:33:00 EST, Tablet, [facility], Partial fill upon patient request if the prescriptionis for a schedule II opioid drug., 163, juan j, ... Start Date: 11/16/22 Status: Ordered chlorproMAZINE [...] 11/16/22 10:34:00 EST, Route to Pharmacy Electronically, [facility], Partial fill upon patient request if the prescription is for a schedule II opioid d... Start Date: 11/16/22 Stop Date: 08/13/23 Status: Ordered FLUoxetine 20 mg oral capsule 80 mg, 4, capsule, By Mouth, Daily in AM, # 120 capsule, Refills 0, Tot. Refills 0, Maintenance, 11/16/22 10:34:00 EST, Route to Pharmacy Electronically, [facility], Partial fill upon patient request [...] 11/16/22 10:34:00 EST, Route to Pharmacy Electronically, [facility], Partial fill upon patientrequest if [...] 02/12/23 10:51:00 EDT, Route to Pharmacy Electronically, [facility], Partial fill upon patient requestif [...] 0 Refills, Maintenance, 11/16/22 10:34:00 EST, Tablet, [facility], Partial fill upon patient request if [...] 0 Refills, Maintenance, 11/16/22 10:34:00 EST, Tablet, [facility], Partial fill upon patient request if [...] 11/16/22 10:34:00 EST, Route to Pharmacy Electronically, [facility], Partial fill upon patient request if the prescription is for a schedule I... Start Date: 11/16/22 Status: Ordered montelukast 10 mg oral tablet Refills 0, Maintenance, 01/06/23 18:05:00 EDT, Partial fill upon patient request if the prescription is for a schedule II opioid drug. Start Date: 01/06/23 Status: Ordered nystatin topical [id number] u/gm cream 1 application, Topically, 2 times a day, # 15 Gm, 0 Refills, Maintenance, 01/05/23 15:04:00 EDT, Cream, [facility], Partial fill upon patient request if the prescription is for a schedule II opioid drug., 1 application Topically 2 times a da... Start Date: 01/05/23 Status: Ordered nystatin topical [id number] u/gm cream 0 Refills, Maintenance, 01/06/23 18:05:00 [...] 11/16/22 10:34:00 EST, Route to Pharmacy Electronically, [facility], Partial fill upon patient request if [...] Maintenance,11/16/22 10:34:00 EST, Route to Pharmacy Electronically, [facility], Partial fill upon patient request if [...] 3 Oxygen Saturation [94-100 %] 98 % (02/21/23 6:01 PM) 98 % (02/21/23 3:29 PM) 98 % (02/21/23 3:06 PM) Pulse Rate [55-90 bpm] 97 bpm *H* (02/21/23 6:01 PM) 101 bpm *H* (02/21/23 3:29 PM) 110 bpm *H* (02/21/23 3:06 PM) Blood Pressure [90-138/55-84 mm Hg] 128/77mm Hg (02/21/23 6:01 PM) 136/73mm Hg (02/21/23 3:29 PM) Respiratory Rate [16-30 br/min] 16 br/min (02/21/23 6:01 PM) 18 br/min (02/21/23 3:29 PM) Temperature [96.8-100.4 DegF] 97.9 DegF (02/21/23 6:01 PM) Mode of Delivery (Oxygen) Room air (02/21/23 6:01 PM) Room air (02/21/23 3:29 PM) Room air (02/21/23 3:06 PM) Blood pressure sites Arm, right (02/21/23 6:01 PM) Arm, right (02/21/23 3:29 PM) Temperature Route Oral (02/21/23 6:01 PM) Social History Social History Type Response Smoking Status 10 or more cigarette s (1/2 pack or more)/day in last 30 days; Type: Cigarettes; Other: Reports smoking 1/2-1 packs/day, ending on level of stress; Started at age: 25; entered on: 11/18/22 Sex Patient Care team information Care Team Personnel Name: Rudi Ruiz RN Position: [facility] ED RN W/OE and Tasks Member Role: Primary Care Nurse Name: Alicja Riggs RN Position: [facility] RN Member Role: Primary Care Nurse Name: Ros Fu RN Position: [facility] RN Member Role: Primary Care Nurse Name: Hilda Mccabe RN Position: [facility] RN Member Role: Primary Care Nurse Name: Rosana Kearney RN Position: [facility] SN RN Member Role: Primary Care Nurse Name: Wil Flood RN Position: [facility] RN Member Role: Primary Care Nurse Name: Gagandeep Sheldon RN Position: [facility] RN Member Role: Primary Care Nurse Name: Chip Morton Position: [facility] Outreach Member Role: Lifetime Consulting Physician Name: Alba Daily RN Position: [facility] RN Member Role: Primary Care Nurse Name: Maribel Marquez NP Position: [facility] PCO Associate Professional Member Role: PCP Address: Address: [address] [place] [address]- Name: Jose Ramirez RN Position: [facility] RN Member Role: Primary Care Nurse Name: Brittany Butts RN Position: [facility] AMB Nurse Member Role: Primary Care Nurse Name: Pauline Mcadams RN Position: [facility] RN Member Role: Primary Care Nurse Name: Mary Sánchez RN Position: [facility] RN Member Role: Primary Care Nurse Name: Shama Rosado RN Position: [facility] RN Member Role: Primary Care Nurse Name: Jackie Snyder RN Position: [facility] RN Member Role: Primary Care Nurse Name: Jay Burks NP Position: Reference Physician Member Role: Primary Care Nurse Address: Address: [address] [place], [place] [id number] Clinical & [place] [address]- [place] Name: Parvez Kaba MD Position: [facility] Renal MD Member Role: Lifetime Consulting Physician Address: Address: [address] [place] [address] [facility] [place] [address]- Name: Mirna Paul RN Position: [facility] OB RN Member Role: Primary Care Nurse Name: Latonya Rahman RN Position: [facility] Onco RN Member Role: Primary Care Nurse Name: Viki Gonzalez RN Position: [facility] RN Member Role: Primary Care Nurse Name: Claudia Presley RN Position: [facility] RN Member Role: Primary Care Nurse Name: Iris Villa RN Position: [facility] Hospital Track Template Maker Member Role: Primary Care Nurse Name: Justina Milton RN Position: [facility] ED RN W/OE and Tasks Member Role: Patient Care Provider Name: Jimmy Alfonso MD Position: [facility] Resident Member Role: Admitting Physician Address: Address: [address] [place] [address] [place] [address]- Name: Jose Alegria Position: [facility] ED [facility] Care Team Related Persons Name: JO-ANN ROMANBOTTOM STOP ATTACHERINDRA Address: [address] [place] [address] Name: BAR MACHINE OPERATOR MULTIPLE SPINDLEGREGG Address: [address] [place] [address] Name: CARLOS PAZ Address: home [address] [place] [address]
--- OUTSIDE RECORDS SUMMARY | 2023-07-16 14:43 | XMS_ITS | Continuity of Care Document ---
Author Name Unknown Organization [facility] Address [address] [place] [address]- Care Team Providers Care Inspector Ball Points Name Role Phone Maribel Marquez NP Primary Care Physician Encounter [facility] Date(s): 02/08/22 - 03/15/22 [facility] [address] [place] [address]- Attending Physician: Justin Mathews MD Allergies, Adverse Reactions, Alerts Substance Reaction Severity Status codeine Active lithium 1 Active sulfa drugs Active Macrobid Active Zithromax Active Geodon Active penicillin Active predniSONE Active Seafood Active 1pt reports 01/17/13 started [...] tablet, 0 Refills, Maintenance, 01/04/22 11:12:00 EDT, [facility], Partial fill upon patient request if [...] 04/11/21 9:22:00 EDT, Route to Pharmacy Electronically, [facility], Partial fill upon patient request if the prescription is for a schedule II opioid . Start Date: 04/11/21 Stop Date: 01/06/22 Status: Ordered Flovent HFA 110 mcg/inh inhalation aerosol 2 puffs, Inhalation, 2 times a day, # 12 Gm, 2 Refills, [facility], 165, cm, 12/19/21 10:41:00 EST, Height, [...] 04/04/22 12:34:00 EDT, 01/04/22 12:34:00 EDT, Tablet, [facility], Partial fill upon patient request if the prescription is f... Start Date: 01/04/22 Stop Date: 04/04/22 Status: Ordered metFORMIN 500 mg oral tablet See Instructions, TAKE 1 EACH BY MOUTH 2 TIMES A DAY, # 60 tablet, 5 Refills, [facility],165, cm, 01/19/22 13:55:00 EDT, Height, 103, [...] 01/04/22 11:12:00 EDT, Route to Pharmacy Electronically, [facility], 165, cm, 12/19/21 10:41:00 EST, Height, [...] 01/19/22 10:48:00 EDT, Route to Pharmacy Electronically, [facility], Partial fill upon patient request if [...] Refills, Maintenance, 05/09/21 8:45:00 EDT, SR Tablet, [facility], 165, cm, 04/11/21 7:42:00 EDT, Height, [...]
--- OUTSIDE RECORDS SUMMARY | 2023-07-16 14:43 | XMS_ITS | Continuity of Care Document ---
Author Name Unknown Organization [facility] ter Address [address] [place] [address]- Care Team Providers Care Pari Mutuel Ticket Cashier Name Role Phone Maribel Marquez NP Primary Care Physician En[place] [facility] [place] 12/20/22 - 12/20/[address] [address]- Encounter Diagnosis Auditory hallucinations(Final) - 12/20/22 Discharge Disposition: A-D/C Home Attending Physician: Swapna [...] 10:33:00 EST, Inhaler, Route to Pharmacy Electronically, NCPDP_[id number], [facility], 163, cm, 11/16/22 9:43:00 EST, Height, 97.3,... Start Date: 11/16/22 Status: Ordered atorvastatin 10 mg oral tablet 1 tablet = 10 mg, By Mouth, Daily at bedtime, # 30 tablet, 0 Refills, Maintenance, 11/16/22 10:33:00 EST, Tablet, [facility], Partial fill upon patient request if the prescription is for a schedule II opioid drug., 163, cm, 11/16/22 9:43:00... Start Date: 11/16/22 Status: Ordered benztropine 1 mg oral tablet 1 mg, 1, tablet, By Mouth, 2 times a day, # 60 tablet, Refills 0, Tot. Refills 0, Maintenance, 11/16/22 10:33:00 EST, Route to Pharmacy Electronically, [facility], Partial fill upon patientrequest if the prescription is for a schedule II op... Start Date: 11/16/22 Status: Ordered chlorproMAZINE 50 mg oral tablet 1 tablet = 50 mg, By Mouth, 3 times a day, PRN Anxiety, # 90 tablet, 0 Refills, Maintenance, 11/16/22 10:33:00 EST, Tablet, [facility], Partial fill upon patient request if the prescriptionis for a schedule II opioid drug., 163, cm, ... Start Date: 11/16/22 Status: Ordered ferrous sulfate 325 mg oral enteric coated tablet 325 mg, 1, tablet, By Mouth, Daily, # 90 tablet, Refills 2, Tot. Refills 2, Maintenance, 11/16/22 10:34:00 EST, Route to Pharmacy Electronically, [facility], Partial fill upon patient request if the prescription is for a schedule II opioid d... Start Date: 11/16/22 Stop Date: 08/13/23 Status: Ordered FLUoxetine 20 mg oral capsule 80 mg, 4, capsule, By Mouth, Daily in AM, # 120 capsule, Refills 0, Tot. Refills 0, Maintenance, 11/16/22 10:34:00 EST, Route to Pharmacy Electronically, [facility], Partial fill upon patient request if the prescription is for a schedule II... Start Date: 11/16/22 Status: Ordered fluPHENAZine 5 mg oral tablet 5 mg, 1, tablet, By Mouth, 2 times a day, # 60 tablet, Refills 0, Tot. Refills 0, Maintenance, 11/16/22 10:34:00 EST, Route to Pharmacy Electronically, [facility], Partial fill upon patientrequest if the prescription is for a schedule II op... Start Date: 11/16/22 Status: Ordered lisinopril 5 mg oral tablet 5 mg, 1, tablet, By Mouth, Daily, # 30 tablet, Refills 0, Tot. Refills 0, Maintenance, 11/16/22 10:34:00 EST, Route to Pharmacy Electronically, [facility], Partial fill upon patient requestif the prescription is for a schedule II opioid kaela... Start Date: 11/16/22 Status: Ordered metFORMIN 500 mg oral tablet 1 each = 500 mg, By Mouth, 2 times a day, # 60 tablet, 0 Refills, Maintenance, 11/16/22 10:34:00 EST, Tablet, [facility], Partial fill upon patient request if the prescription is for a schedule II opioid drug., 163, cm, 11/16/22 9:43:00 EST,... Start Date: 11/16/22 Status: Ordered mirtazapine 15 mg oral tablet 0.5 tablet = 7.5 mg, By Mouth, Daily at bedtime, # 15 tablet, 0 Refills, Maintenance, 11/16/22 10:34:00 EST, Tablet, [facility], Partial fill upon patient request if the prescription is fora schedule II opioid drug., 163, cm, 11/16/22 9:43:... Start Date: 11/16/22 Status: Ordered montelukast 10 mg oral tablet 10 mg, 1, tablet, By Mouth, Daily at bedtime, # 30 tablet, Refills 0, Tot. Refills 0, Maintenance, 11/16/22 10:34:00 EST, [facility] Pharm[facility] Electron[facility], [facility] [...] 11/16/22 10:34:00 EST, Route to Pharmacy Electronically, [facility], Partial fill upon patient request if the prescription is for a schedule... Start Date: 11/16/22 Status: Ordered traZODone 50 mg oral tablet 150 mg, 3, tablet, By Mouth, Daily at bedtime, # 90 tablet, Refills 0, Tot. Refills 0, Maintenance,11/16/22 10:34:00 EST, Route to Pharmacy Electronically, [facility], Partial fill upon patient request if [...] 2 Oxygen Saturation [94-100 %] 100 % (12/20/22 2:25 PM) Pulse Rate [55-90 bpm] 120 bpm *H* (12/20/22 2:25 PM) 120 bpm *H* (12/20/22 2:24 PM) Blood Pressure [90-138/55-84 mm Hg] 133/ 78mm Hg (12/20/22 2:25 PM) Respiratory Rate [16-30 br/min] 18 br/mi n (12/20/22 2:25 PM) Temperature [96.8-100.4 DegF] 97.8 DegF (12/20/22 2:25 PM) Mode of Delivery (Oxygen) Room air (12/20/22 2:25 PM) Blood pressure sites Arm, right (12/20/22 2:25 PM) Temperature Route Oral (12/20/22 2:25 PM) Social History Social History Type Response Smoking Status 10 or more cigarette s (1/2 pack or more)/day in last 30 days; Type: Cigarettes; Other: Reports smoking 1/2-1 packs/day, ending on level of stress; Started at age: 25; entered on: 11/18/22 Sex Patient Care team information Care Team Personnel Name: Rudi Ruiz RN Position: [facility] ED RN W/OE and Tasks Member Role: Primary Care Nurse Name: Alicja Riggs RN Position: [facility] RN Member Role: Primary Care Nurse Name: Harmony Pagan Position: [facility] RN Member Role: Primary Care Nurse Name: Ros Fu RN Position: [facility] RN Member Role: Primary Care Nurse Name: Hilda Mccabe RN Position: [facility] RN Member Role: Primary Care Nurse Name: Rosana Kearney RN Position: [facility] SN RN Member Role: Primary Care Nurse Name: Wil Flood RN Position: [facility] RN Member Role: Primary Care Nurse Name: Gagandeep Sheldon RN Position: [facility] RN Member Role: Primary Care Nurse Name: Chip Morton Position: [facility] Outreach Member Role: Lifetime Consulting Physician Name: Alba Daily RN Position: [facility] RN Member Role: Primary Care Nurse Name: Maribel Marquez NP Position: [facility] PCO Associate Professional Member Role: PCP Address: Address: [address] [place] [address]- Name: Jose Ramirez RN Position: [facility] RN Member Role: Primary Care Nurse Name: Brittany Butts RN Position: [facility] AMB Nurse Member Role: Primary Care Nurse Name: Pauline Mcadams RN Position: [facility] RN Member Role: Primary Care Nurse Name: Mary Sánchez RN Position: [facility] RN Member Role: Primary Care Nurse Name: Shama Rosado RN Position: [facility] RN Member Role: Primary Care Nurse Name: Jackie Snyder RN Position: [facility] RN Member Role: Primary Care Nurse Name: Jay Burks NP Position: Reference Physician Member Role: Primary Care Nurse Address: Address: [address] [place] [address] Clinical & [place] [address]- [place] Name: Parvez Kaba MD Position: [facility] Renal MD Member Role: Lifetime Consulting Physician Address: Address: [address] [facility] [place] [address]- Name: Yoana Ledezma RN Position: [facility] RN Member Role: Primary Care Nurse Name: Mirna Paul RN Position: [facility] OB RN Member Role: Primary Care Nurse Name: Latonya Rahman RN Position: [facility] Onco RN Member Role: Primary Care Nurse Name: Viki Gonzalez RN Position: [facility] RN Member Role: Primary Care Nurse Name: Claudia Presley RN Position: [facility] RN Member Role: Primary Care Nurse Name: Iris Villa RN Position: [facility] Hospital Motor Vehicle Operator Road Supervisor Member Role: Primary Care Nurse Name: Yue Reardon MD Position: [facility] Resident Member Role: ED Resident Address: Address: [address] [place] [address] [place] [address]- Name: Lenore Mtz RN Position: [facility] ED RN W/OE and Tasks Member Role: Patient Care Provider Name: Harmony Gutierrez Position: [facility] ED [facility] Member Role: Web Editor Name: Swapna Amaro DO Position: [facility] ED Medicine MD Member Role: Admitting Physician Address: Address: [address] [place] [address]- Care Team Related Persons Name: JO-ANN ROMANFINISHER BRUSHINDRA Address: [address] [place] [address] Name: ECONOMIC FORECASTERGREGG Address: home [address] [place] [address] Name: CARLOS PAZ Address: [address] [place] [address]
--- OUTSIDE RECORDS SUMMARY | 2023-07-16 14:43 | XMS_ITS | Continuity of Care Document ---
Author Name Unknown Organization [facility] ter Address [address] [place] [address]- Care Team Providers Care Master Welder Name Role Phone Maribel Marquez NP Primary Care Physician [phone] Encounter [facility] Date(s): 08/07/22 - 08/08/[address] [address]- Encounter Diagnosis Bipolar disorder(Final) - 08/08/22 Chronic post-traumatic stress disorder (PTSD)(Final) - 08/08/22 Borderline personality disorder(Final) - 08/08/22 Discharge Disposition: A-D/C Home Attending Physician: Pia Patten MD Admitting Physician: Pia Patten MD Referring [...] tablet, 1 Refills, Maintenance, 07/24/22 15:17:00 EDT, [facility], 165.2, cm, 07/19/22 10:30:00 EDT, Height, [...] 04/11/21 9:22:00 EDT, Route to Pharmacy Electronically, [facility], Partial fill upon patient request if the prescription is for a schedule II opioid dr... Start Date: 04/11/21 Stop Date: 01/06/22 Status: Ordered Flovent HFA 110 mcg/inh inhalation aerosol 2 puffs, Inhalation, 2 times a day, # 12 Gm, 1 Refills, [facility], 162, cm, 03/20/22 19:50:00 EDT, Height, [...] 07/21/22 14:07:00 EDT, Route to Pharmacy Electronically, [facility], Partial fill upon patient requestif the prescription is for a schedule II opioid janet. Start Date: 07/21/22 Stop Date: 04/17/23 Status: Ordered metFORMIN 500 mg oral tablet See Instructions, TAKE 1 EACH BY MOUTH 2 TIMES A DAY, # 60 tablet, 5 Refills, 08/07/22 10:55:00 EDT, [facility], 165.2, cm, 07/19/22 10:30:00 EDT, Height, [...] 01/04/22 11:12:00 EDT, Route to Pharmacy Electronically, [facility], 165, cm, 12/19/21 10:41:00 EST, Height, 103, kg, 11/26/21 8:59:00 EST, Start Date: 01/04/22 Status: Ordered Nicoderm C-Q Clear 21 mg/24 hr transdermal film, extended release 1 patch, Topically, Daily, for 6 week(s), # 42 patch, 0 Refills, Acute 08/30/22 11:56:00 EST, 07/19/22 11:56:00 EDT, Patch, [facility], Partial fill upon patient request if the prescriptionis for a schedule II opioid drug., 165.2, cm, 07/19... Start Date: 07/19/22 Stop Date: 08/30/22 Status: Ordered pantoprazole 40 mg oral delayed [...] 01/19/22 10:48:00 EDT, Route to Pharmacy Electronically, [facility], Partial fill upon patient request if the prescription is for a schedule... Start Date: 01/19/22 Status: Ordered ProAir HFA 90 mcg/inh inhalation aerosol 2 puffs, Inhalation, 4 times a day, PRN as needed for wheezing, # 6.7 Gm, 1 Refills, Maintenance, 06/23/22 16:17:00 EDT, Aerosol, [facility], Partial fill upon patient request if [...] 07/28/22 7:45:00 EDT, Route to Pharmacy Electronically, [facility], 165.2, cm, 07/19/22 10:30:00 EDT, Height, [...] Refills, Maintenance, 05/09/21 8:45:00 EDT, SR Tablet, [facility], 165, cm, 04/11/21 7:42:00 EDT, Height, [...] 3 Oxygen Saturation [94-100 %] 100 % (08/08/22 4:53 PM) 97 % (08/08/22 9:04 AM) 93 % *L* (08/08/22 5:57 AM) Pulse Rate [55-90 bpm] 79 bpm (08/08/22 4:53 PM) 98 bpm *H* (08/08/22 9:04 AM) 76 bpm (08/08/22 5:57 AM) Blood Pressure [90-138/55-84 mm Hg] 112/78mm Hg (08/08/22 4:53 PM) 131/83mm Hg (08/08/22 9:04 AM) 133/83mm Hg (08/08/22 5:57 AM) Respiratory Rate [16-30 br/min] 15 br/min *L* (08/08/22 4:53 PM) 17 br/min (08/08/22 9:04 AM) 19 br/min (08/08/22 5:57 AM) Temperature [96.8-100.4 DegF] 98.2 DegF (08/08/22 4:53 PM) 98.2 DegF (08/08/22 9:04 AM) 97.6 DegF (08/08/22 5:57 AM) Liters per Minute 0 L/min (08/08/22 4:53 PM) Mode of Delivery (Oxygen) Room air (08/08/22 4:53 PM) Room air (08/08/22 9:04 AM) Room air (08/08/22 5:57 AM) Blood pressure sites Arm, right (08/08/22 4:53 PM) Arm, right (08/08/22 9:04 AM) Arm, right (08/08/22 5:57 AM) Temperature Route Oral (08/08/22 4:53 PM) Oral (08/08/22 9:04 AM) Oral (08/08/22 5:57 AM) Social History Social History Type Response Smoking Status 10 or more cigarette s (1/2 pack or more)/day in last 30 days; Other: 1PPD; entered on: 07/19/22 Sex Patient Care team information Personnel Name: Maribel Marquez NP Address: Address: [address] [place] [address]
--- OUTSIDE RECORDS SUMMARY | 2023-07-16 14:43 | XMS_ITS | Continuity of Care Document ---
Author Name Unknown Organization [facility] ter Address [address] [place] [address]- Care Team Providers Care Township Clerk Name Role Phone Maribel Marquez NP Primary Care Physician Encounter [facility] Date(s): 09/29/21 - 09/30/[address] [address]- Encounter Diagnosis Depression(Final) - 09/30/21 Discharge Disposition: A-D/C Home Attending Physician: Ros Corado MD Admitting Physician: Ros Corado MD Referring Physician: Not on Staff, Referring MD Allergies, Adverse Reactions, Alerts Substance Reaction Severity Status codeine Active lithium 1 Active penicillin Active Macrobid Active Zithromax Active Geodon Active predniSONE Active sulfa drugs Active Seafood Active 1pt reports 01/17/13 started [...] 0 Refills, Maintenance, 06/28/21 10:16:00 EDT, Tablet, [facility], Partial fill [...] 0 Refills, Maintenance, 02/09/20 10:08:00 EDT, Tablet, [facility], 165, cm, 02/08/20 19:47:00 EDT, Height, 104.5, kg,02/07/20 8:15:00 EDT, Dry Weight Start Date: 02/09/20 Status: Ordered doxazosin 1 mg oral tablet 3 mg, 3, tablet, By Mouth, Daily at bedtime, # 90 tablet, Refills 0, Tot. Refills 0, Maintenance, 07/22/20 18:41:00 EDT, Route to Pharmacy Electronically, [facility], 163.5, cm, 07/22/20 18:29:00 EDT, Height, 102.5, kg, 07/18/20 21:04:00 EDT... Start Date: 07/22/20 Status: Ordered ferrous sulfate 325 mg oral enteric coated tablet 325 mg, 1, tablet, By Mouth, Daily, # 90 tablet, Refills 2, Tot. Refills 2, Maintenance, 04/11/21 9:22:00 EDT, Route to Pharmacy Electronically, [facility], Partial fill upon patient request if the prescription is for a schedule II opioid Start Date: 04/11/21 Stop Date: 01/06/22 Status: Ordered Flovent HFA 110 mcg/inh inhalation aerosol 2 puffs = 220 mcg, Inhalation, 2 times a day, # 3 each, 3 Refills, Maintenance, 05/09/21 8:41:00 EDT, Aerosol, [facility], 165, cm, 04/11/21 7:42:00 EDT, Height, 102.6, kg, 02/12/21 12:14:00 EDT, Dry Weight Start Date: 05/09/21 Status: Ordered Haldol Decanoate decanoate 100 mg/ml injectable solution = 100 mg, Intramuscular, Every 28 days, last dose given on 09/17/2020. Next due 10/15/20., # 1 each, 0Refills, Soft Stop, 07/22/20 18:42:00 EDT, Solution, [facility], 163.5, cm, 07/22/20 18:29:00 EDT, Height, 102.5, kg, 07/18/20 21:04:00 EDT,... Start Date: 07/22/20 Status: Ordered ibuprofen 600 mg oral tablet 600 mg, 1, tablet, By Mouth, Every 6 hours, PRN, # 120 tablet, Refills 0, Tot. Refills 0, Maintenance, Headache, 08/08/21 7:41:00 EDT, Route to Pharmacy Electronically, [facility], Partial fill upon patient request if the prescription is for... Start Date: 08/08/21 Stop Date: 09/07/21 Status: Ordered lisinopril 5 mg oral tablet 5 mg, Tablet, By Mouth, 09/30/21 9:00:00 EST Start Date: 09/30/21 Stop Date: 09/30/21 Status: Completed lisinopril 5 mg oral tablet 5 mg, 1, tablet, By Mouth, Daily, # 90 tablet, Refills 1, Tot. Refills 1, Maintenance, 05/09/21 8:43:00 EDT, Route to Pharmacy Electronically, [facility], 165, cm, 04/11/21 7:42:00 EDT, Height, 102.6, kg, 02/12/21 12:14:00 EDT, Dry Weight Start Date: 05/09/21 Status: Ordered loratadine 10 mg oral tablet 10 mg, 1, tablet, By Mouth, Daily, # 90 tablet, Refills 3, Tot. Refills 3, Maintenance, 04/11/21 9:38:00 EDT, [facility] each, 1 Refills, Maintenance, 05/09/21 8:43:00 EDT,Tablet, [facility], Partial fill upon patient request if the prescription is for a schedule II opioid drug., 165, cm, 04/11/21 7:42:00 EDT, H... Start Date: 05/09/21 Stop Date: 11/05/21 Status: Ordered montelukast 10 mg oral tablet 10 mg, 1, tablet, By Mouth, Daily, # 90 tablet, Refills 1, Tot. Refills 1, Maintenance, 05/09/21 8:45:00 EDT, Route to Pharmacy Electronically, [facility], 165, cm, 04/11/21 7:42:00 EDT, Height, [...] Gm, 5 Refills, Acute, 05/10/21 11:59:00 EDT, [facility], 15, TAKE 17 GM BY MOUTH [...] 0 Refills, Maintenance, 02/09/20 10:05:00 EDT, Inhaler, [facility], 165, cm, 02/08/20 19:47:00 EDT, Height, 104.5, kg, 02/07/20 8:15:00 EDT, Dry Weight Start Date: 02/09/20 Stop Date: 03/10/20 Status: Ordered verapamil 240 mg/12 hours oral tablet, extended release 1 tablet = 240 mg, By Mouth, Daily at bedtime, # 90 tablet, 1 Refills, Maintenance, 05/09/21 8:45:00 EDT, SR Tablet, [facility], 165, cm, 04/11/21 7:42:00 EDT, Height, [...] 3 Oxygen Saturation [94-100 %] 97 % (09/30/21 7:48 PM) 97 % (09/30/21 8:00 AM) 97 % (09/29/21 9:13 PM) Pulse Rate [55-90 bpm] 97 bpm *H* (09/30/21 7:48 PM) 91 bpm *H* (09/30/21 8:00 AM) 102 bpm *H* (09/29/21 9:13 PM) Blood Pressure [90-138/55-84 mm Hg] 114/72mm Hg (09/30/21 7:48 PM) 128/86mm Hg (09/30/21 8:48 AM) 142/85mm Hg *H* (09/29/21 9:13 PM) Respiratory Rate [16-30 br/min] 16 br/min (09/30/21 7:48 PM) 19 br/min (09/30/21 8:00 AM) 18 br/min (09/29/21 9:13 PM) Temperature [96.8-100.4 DegF] 98.8 DegF (09/30/21 7:48 PM) 98.4 DegF (09/30/21 8:00 AM) 98.6 DegF (09/29/21 9:13 PM) Mode of Delivery (Oxygen) Room air (09/30/21 7:48 PM) Room air (09/30/21 8:00 AM) Room air (09/29/21 9:13 PM) Blood pressure sites Arm, right (09/30/21 7:48 PM) Temperature Route Oral (09/30/21 7:48 PM) Oral (09/30/21 8:00 AM) Oral (09/29/21 9:13 PM) Social History Social History Type Response Smoking Status 10 or more cigarette s (1/2 pack or more)/day in last 30 days; Type: Cigarettes; Other: Reports smoking 1/2-1 packs/day, ending on level of stress; Started at age: 25; entered on: 12/31/20 Sex
--- OUTSIDE RECORDS SUMMARY | 2023-07-16 14:44 | XMS_ITS | Continuity of Care Document ---
Author Name Unknown Organization [facility] ter Address [address] [place] [id number]- Care Team Providers Care Conveyancer Name Role Phone Jr LE, Michelle Miles Primary Care Physician Encounter [facility] Date(s): 07/17/20 - 07/18/[address] [address] Encounter Diagnosis Bipolar disorder(Final) - 07/17/20 Depression(Final) - 07/17/20 Suicidal ideation(Final) - 07/17/20 Discharge Disposition: Transferred to an intermediate care faci Attending Physician: Mira Moore MD Admitting Physician: Mira Moore MD Referring Physician: Not on Staff, Referring MD Allergies, Adverse Reactions, Alerts Substance Reaction Severity Status codeine Active lithium 1 Active penicillin Active predniSONE Active sulfa drugs Active Macrobid Active Seafood Active Geodon Active 1pt reports 01/17/13 started taking lithium about a week ago. Immunizations Given and Recorded Vaccine Date Status Refusal Reason influenza virus vaccine, inactivated 07/07/13 Give n influenza virus vaccine, inactivated 1 09/27/10 Gi benton tetanus/diphtheria/pertussis, acel(Tdap) 11/06/10 Given tetanus/diphtheria/pertussis, acel(Tdap) 05/17/10 Given tetanus/diphtheria/pertussis, acel(Tdap) 05/18/09 Given tetanus/diphtheria/pertussis, acel(Tdap) 11/08/08 Given tetanus/diphtheria/pertussis, acel(Tdap) 07/19/08 Given pneumococcal 23-valent vaccine 10/06/10 Given Diphth-Tetanus Toxoids Adsorbed(oldterm) 12/04/08 Given Not Given Vaccine Date Status Refusal Reason influenza virus vaccine, inactivated 08/02/19 Not Given Patient Refuses 1Early/Late Reason: Nursing Judgment Medications atorvastatin 10 mg oral tablet 1 tablet = 10 mg, By Mouth, Daily at bedtime, # 30 tablet, 0 Refills, Maintenance, 02/09/20 10:07:00 EDT, Tablet, [facility], 165, cm, 02/08/20 19:47:00 EDT, Height, 104.5, kg, 02/07/20 8:15:00 EDT, Dry Weight Start Date: 02/09/20 Status: Ordered chlorproMAZINE 25 mg oral tablet = 25 mg, By Mouth, 3 times a day, PRN Agitation Anxiety, # 90 tablet, 0 Refills, Maintenance, 02/09/20 10:08:00 EDT, Tablet, [facility], 165, cm, 02/08/20 19:47:00 EDT, Height, 104.5, kg,02/07/20 8:15:00 EDT, Dry Weight Start Date: 02/09/20 Status: Ordered Claritin 10 mg oral tablet 10 mg, 1, tablet, By Mouth, Daily, # 30 tablet, Refills 0, Tot. Refills 0, Maintenance, 02/09/20 10:10:00 EDT, Route to Pharmacy Electronically, [facility], 165, cm, 02/08/20 19:47:00 EDT, Height, 104.5, kg, 02/07/20 8:15:00 EDT, Dry Weight Start Date: 02/09/20 Status: Ordered Cogentin Tablet 1 mg, By Mouth, 3 times a day, Refills 0, Maintenance, 07/18/20 19:54:00 EDT Start Date: 07/18/20 Status: Ordered Colace sodium 100 mg oral capsule 100 mg, 1, capsule, By Mouth, 2 times a day, PRN, # 60 capsule, Refills 0, Tot. Refills 0, Maintenance, Constipation, 02/09/20 10:08:00 EDT, Route to Pharmacy Electronically, [facility], 165, cm, 02/08/20 19:47:00 EDT, Height, 104.5, kg, 04/... Start Date: 02/09/20 Status: Ordered Flonase 50 mcg/inh nasal spray 1 sprays = 50 mcg, Nares, Both, 2 times a day, # 16 Gm, 0 Refills, Maintenance, 02/09/20 10:09:00 EDT, Nasal [place], [facility], 1 sprays Nares, Both 2 times a day,x30 days, 165, cm, 02/08/20 19:47:00 EDT, Height, 104.5, kg, 02/07/20 8:15:00... Start Date: 02/09/20 Stop Date: 03/10/20 Status: Ordered Flovent HFA 110 mcg/inh inhalation aerosol 2 puffs = 220 mcg, Inhalation, 2 times a day, # 1 each, 0 Refills, Maintenance, 02/09/20 10:06:00 EDT, Aerosol, [facility], 165, cm, 02/08/20 19:47:00 EDT, Height, 104.5, kg, 02/07/20 8:15:00 EDT, Dry Weight Start Date: 02/09/20 Status: Ordered haloperidol 5 mg oral tablet 5 mg, 1, tablet, By Mouth, 3 times a day, # 270 tablet, Refills 0, Maintenance, 07/18/20 19:52:00 EDT Start Date: 07/18/20 Status: Ordered ibuprofen 400 mg oral tablet 400 mg, 1, tablet, By Mouth, Every 6 hours, PRN, # 60 tablet, Refills 0, Maintenance, for pain, 07/18/20 19:57:00 EDT Start Date: 07/18/20 Status: Ordered lisinopril 5 mg oral tablet 5 mg, 1, tablet, By Mouth, Daily, # 30 tablet, Refills 0, Tot. Refills 0, Maintenance, 02/09/20 10:10:00 EDT, Route to Pharmacy Electronically, [facility], 165, cm, 02/08/20 19:47:00 EDT, Height, [...] 02/09/20 10:11:00 EDT, Route to Pharmacy Electronically, [facility], 165, cm, 02/08/20 19:47:00 EDT, Height, 104.5, kg, 02/07/20 8:15:00 EDT, Dry Weight Start Date: 02/09/20 Status: Ordered nicotine 21 mg/24 hr transdermal film, extended release 1 patch, Topically, Daily, # 30 patch, 0 Refills, Maintenance, 07/18/20 19:56:00 EDT, Patch Start Date: 07/18/20 Status: Ordered norethindrone 0.35 mg oral tablet 1 tablet = 0.35 mg, By Mouth, Daily, # 30 tablet, 0 Refills, Maintenance, 02/09/20 10:07:00 EDT, Tablet, [facility], 165, cm, 02/08/20 19:47:00 EDT, Height, 104.5, kg, 02/07/20 8:15:00 EDT,Dry Weight Start Date: 02/09/20 Status: Ordered norethindrone 0.35 mg oral tablet TAKE 1 TABLET BY MOUTH DAILY Start Date: 07/09/20 Status: Ordered pantoprazole 40 mg oral delayed [...] Daily, dissolve in water before taking, # 255 Gm, 0 Refills, Acute 02/08/21 9:00:00 EDT, 02/09/20 10:22:00 EDT, REC Powder, [facility], 17 Gm By Mouth Daily,Instr:dissolve in water before taking, 165, cm, 02/08/20 19:47:00... Start Date: 02/09/20 Stop Date: 02/08/21 Status: Ordered prazosin 2 mg oral capsule 2 capsule = 4 mg, By Mouth, Daily at bedtime, # 60 capsule, 1 Refills, Maintenance, 02/09/20 10:12:00 EDT, [facility], 165, cm, 02/08/20 19:47:00 EDT, Height, 104.5, kg, 02/07/20 8:15:00 EDT, Dry Weight Start Date: 02/09/20 Stop Date: 03/08/20 Status: Ordered traZODone 150 mg oral tablet 1 tablet = 150 mg, By Mouth, Daily at bedtime, for sleep, # 30 tablet, 1 Refills, Maintenance, 02/09/20 10:13:00 EDT, Tablet, [facility], 165, cm, 02/08/20 19:47:00 EDT, Height, 104.5, kg, 02/07/20 8:15:00 EDT, Dry Weight Start Date: 02/09/20 Status: Ordered Trileptal 150 mg oral tablet 150 mg, 1, tablet, By Mouth, Daily at bedtime, # 30 tablet, Refills 0, Tot. Refills 0, Maintenance,02/09/20 10:12:00 EDT, Route to Pharmacy Electronically, [facility], 165, cm, 02/08/20 19:47:00 EDT, Height, 104.5, kg, 02/07/20 8:15:00 EDT,... Start Date: 02/09/20 Status: Ordered Trileptal 300 mg oral tablet 300 mg, 1, tablet, By Mouth, Daily at bedtime, # 30 tablet, Refills 0, Tot. Refills 0, Maintenance,02/09/20 10:18:00 EDT, Route to Pharmacy Electronically, [facility], 165, cm, 02/08/20 19:47:00 EDT, Height, 104.5, kg, 02/07/20 8:15:00 EDT,... Start Date: 02/09/20 Status: Ordered Ventolin HFA 108 mcg/inh inhalation aerosol with adapter 2 puffs = 180 mcg, Inhalation, 4 times a day, PRN for wheezing, # 1 each, 0 Refills, Maintenance, 02/09/20 10:05:00 EDT, Inhaler, [facility], 165, cm, 02/08/20 19:47:00 EDT, Height, 104.5, kg, 02/07/20 8:15:00 EDT, Dry Weight Start Date: 02/09/20 Stop Date: 03/10/20 Status: Ordered verapamil 240 mg/12 hours oral tablet, extended release 1 tablet = 240 mg, By Mouth, Daily at bedtime, # 30 tablet, 0 Refills, Maintenance, 02/09/20 10:14:00 EDT, SR Tablet, [facility], 165, cm, 02/08/20 19:47:00 EDT, [...] 1 2 3 Oxygen Saturation [94-100 %] 99 % (07/18/20 2:11 PM) 98 % (07/18/20 6:34 AM) 96 % (07/17/20 2:22 PM) Pulse Rate [55-90 bpm] 96 bpm *H* (07/18/20 2:11 PM) 65 bpm (07/18/20 6:34 AM) 96 bpm *H* (07/17/20 2:22 PM) Blood Pressure [90-138/55-84 mm Hg] 131/91mm Hg (07/18/20 2:11 PM) 143/89mm Hg *H* (07/18/20 6:34 AM) 146/90mm Hg *H* (07/17/20 2:22 PM) Respiratory Rate [16-30 br/min] 16 br/min (07/18/20 2:11 PM) 17 br/min (07/18/20 6:34 AM) 18 br/min (07/17/20 2:22 PM) Temperature [96.8-100.4 DegF] 97.9 DegF (07/18/20 2:11 PM) 98.3 DegF (07/18/20 6:34 AM) 98.8 DegF (07/17/20 2:22 PM) Mode of Delivery (Oxygen) Room air (07/18/20 2:11 PM) Room air (07/18/20 6:34 AM) Room air (07/17/20 2:22 PM) Blood pressure sites Arm, left (07/17/20 2:22 PM) Temperature Route Oral (07/18/20 2:11 PM) Oral (07/18/20 6:34 AM) Oral (07/17/20 2:22 PM) Social History Social History Type Response Smoking Status 10 or more cigarette s (1/2 pack or more)/day in last 30 days; Use: smokes 1 pack a day entered on: 05/10/19 Sex
--- OUTSIDE RECORDS SUMMARY | 2023-07-16 14:44 | XMS_ITS | Continuity of Care Document ---
Author Name Unknown Organization [facility] ter Address [address] [place] [id number]- Care Team Providers Care Collection Support Specialist Name Role Phone Maribel Marquez NP Primary Care Physician [phone] Encounter [facility] Date(s): 03/04/23 - 03/05/[address] [address]- Encounter Diagnosis Suicidal ideation(Final) - 03/05/23 Discharge Disposition: A-D/C Home Attending Physician: Jessica [...] 10:33:00 EST, Inhaler, Route to Pharmacy Electronically, [id number], [facility], 163, cm, 11/16/22 9:43:00 EST, Height, 97.3,... Start Date: 11/16/22 Status: Ordered atorvastatin 10 mg oral tablet 1 tablet = 10 mg, By Mouth, Daily at bedtime, # 30 tablet, 0 Refills, Maintenance, 11/16/22 10:33:00 EST, Tablet, [facility], Partial fill upon patient request if [...] 0 Refills, Maintenance, 11/16/22 10:33:00 EST, Tablet, [facility], Partial fill [...] 10:34:00 EST, Route to Pharmacy Electronically, [facility], Partial fill upon patient request if [...] 10:34:00 EST, Route to Pharmacy Electronically, [facility], Partial fill upon patientrequest if the [...] oral tablet 5 mg, Tablet, By Mouth, 03/05/23 9:00:00 EDT Start Date: 03/05/23 Stop Date: 03/05/23 Status: Completed lisinopril 5 mg oral tablet [...] tablet, 1 Refills, Maintenance,02/22/23 10:08:00 EDT, [facility], 146, cm, 02/05/23 20:22:00 EDT, Height, [...] 10:34:00 EST, Route to Pharmacy Electronically, [facility], Partial fill upon patient request if the prescription is for a schedule I... Start Date: 11/16/22 Status: Ordered montelukast 10 mg oral tablet Refills 0, Maintenance, 01/06/23 18:05:00 EDT, Partial fill upon patient request if the prescription is for a schedule II opioid drug. Start Date: 01/06/23 Status: Ordered nystatin topical [id number] u/gm cream 1 application, Topically, 2 times a day, # 15 Gm, 0 Refills, Maintenance, 01/05/23 15:04:00 EDT, Cream, [facility], Partial fill upon patient request if the prescription is for a schedule II opioid drug., 1 application Topically 2 times a da... Start Date: 01/05/23 Status: Ordered nystatin topical [id number] u/gm cream 0 Refills, Maintenance, 01/06/23 18:05:00 [...] 10:34:00 EST, Route to Pharmacy Electronically, [facility], Partial fill upon patient request if [...] 10:34:00 EST, Route to Pharmacy Electronically, [facility], Partial fill upon patient request if [...] 3 Oxygen Saturation [94-100 %] 99 % (03/05/23 11:45 AM) 97 % (03/05/23 9:32 AM) 99 % (03/05/23 5:53 AM) Pulse Rate [55-90 bpm] 80 bpm (03/05/23 11:45 AM) 82 bpm (03/05/23 9:32 AM) 86 bpm (03/05/23 5:53 AM) Blood Pressure [90-138/55-84 mm Hg] 106/67mm Hg (03/05/23 11:45 AM) 125/70mm Hg (03/05/23 9:32 AM) 126/73mm Hg (03/05/23 5:53 AM) Respiratory Rate [16-30 br/min] 18 br/min (03/05/23 11:45 AM) 18 br/min (03/05/23 9:32 AM) 17 br/min (03/05/23 5:53 AM) Temperature [96.8-100.4 DegF] 98.1 DegF (03/05/23 5:53 AM) 98.2 DegF (03/04/23 10:24 PM) Mode of Delivery (Oxygen) Room air (03/05/23 11:45 AM) Room air (03/05/23 9:32 AM) Room air (03/05/23 5:53 AM) Blood pressure sites Arm, left (03/05/23 11:45 AM) Arm, left (03/05/23 9:32 AM) Arm, right (03/05/23 5:53 AM) Temperature Route Oral (03/05/23 5:53 AM) Oral (03/04/23 10:24 PM) Social History Social History Type Response Smoking Status 10 or more cigarette s (1/2 pack or more)/day in last 30 days; Type: Cigarettes; Other: Reports smoking 1/2-1 packs/day, ending on level of stress; Started at age: 25; entered on: 11/18/22 Sex Patient Care team information Care Team Personnel Name: Rudi Ruiz RN Position: [facility] ED RN W/OE and Tasks Member Role: Primary Care Nurse Name: Alicja Riggs RN Position: [facility] RN Member Role: Primary Care Nurse Name: Ros Fu RN Position: [facility] RN Member Role: Primary Care Nurse Name: Hilda Mccabe RN Position: [facility] RN Member Role: Primary Care Nurse Name: Rosana Kearney RN Position: [facility] SN RN Member Role: Primary Care Nurse Name: Wil Flood RN Position: [facility] RN Member Role: Primary Care Nurse Name: Gagandeep Sheldon RN Position: [facility] RN Member Role: Primary Care Nurse Name: Chip Morton Position: [facility] Outreach Member Role: Lifetime Consulting Physician Name: Alba Daily RN Position: [facility] RN Member Role: Primary Care Nurse Name: Maribel Marquez NP Position: [facility] PCO Associate Professional Member Role: PCP Address: Address: [address] [place] [address]- [place] Name: Jose Ramirez RN Position: [facility] RN Member Role: Primary Care Nurse Name: Brittany Butts RN Position: [facility] AMB Nurse Member Role: Primary Care Nurse Name: Pauline Mcadams RN Position: [facility] RN Member Role: Primary Care Nurse Name: Mary Sánchez RN Position: [facility] RN Member Role: Primary Care Nurse Name: Shama Rosado RN Position: [facility] RN Member Role: Primary Care Nurse Name: Jackie Snyder RN Position: [facility] RN Member Role: Primary Care Nurse Name: Kimmie OPTICAL LABORATORY TECHNICIANJay Position: Reference Physician Member Role: Primary Care Nurse Address: Address: [address] [place], [place] [id number] [facility] [place] [address]- [place] Name: Parvez Kaba MD Position: [facility] Renal MD Member Role: Lifetime Consulting Physician Address: Address: [address] [place] [address] [facility] [place] [address]- [place] Name: Mirna Paul RN Position: [facility] OB RN Member Role: Primary Care Nurse Name: Latonya Rahman RN Position: [facility] Onco RN Member Role: Primary Care Nurse Name: Viki Gonzalez RN Position: [facility] RN Member Role: Primary Care Nurse Name: Claudia Presley RN Position: [facility] RN Member Role: Primary Care Nurse Name: Iris Villa RN Position: [facility] Hospital Sack Sorter Member Role: Primary Care Nurse [facility] Attending Position: [facility] ED Attendings Patient Name: Chanelle Gotti RN Position: [facility] ED RN W/OE and Tasks Member Role: Patient Care Provider Name: Shelly Clayton RN Position: [facility] ED RN W/OE and Tasks Member Role: Patient Care Provider Name: Jessica Bazan MD Position: [facility] ED Medicine MD Member Role: Admitting Physician Address: Address: [address] [place] [id number]- [place] Care Team Related Persons Name: JO-ANN ROMANNUT CRACKERINDRA Address: [address] [place] [address] Name: WHITE MIXING OPERATORGREGG Address: home [address] [place] [address] Name: CARLOS PAZ Address: home [address] [place] [id number]
--- OUTSIDE RECORDS SUMMARY | 2023-07-16 14:44 | XMS_ITS | Continuity of Care Document ---
Author Name Unknown Organization [facility] Address [address] [place] [phone]- Care Team Providers Care Fiscal Clerk Name Role Phone Maribel Maqruez NP Primary Care Physician Encounter [facility] [place] Date(s): 01/16/22 - 01/17/[address] [address]- Encounter Diagnosis Schizoaffective disorder(Final) - 01/16/22 Auditory hallucination(Final) - 01/16/22 Suicidal ideation(Final) - 01/16/22 Discharge Disposition: A-D/C Home Attending Physician: Wilner Cartagena MD Admitting Physician: Wilner Cartagena MD Referring Physician: Not on Staff, Referring [...] tablet, 0 Refills, Maintenance, 01/04/22 11:12:00 EDT, [facility], Partial fill upon patient request if [...] 04/11/21 9:22:00 EDT, Route to Pharmacy Electronically, [facility], Partial fill upon patient request if the prescription is for a schedule II opioid . Start Date: 04/11/21 Stop Date: 01/06/22 Status: Ordered Flovent HFA 110 mcg/inh inhalation aerosol 2 puffs, Inhalation, 2 times a day, # 12 Gm, 2 Refills, [facility], 165, cm, 12/19/21 10:41:00 EST, Height, [...] 04/04/22 12:34:00 EDT, 01/04/22 12:34:00 EDT, Tablet, [facility], Partial fill upon patient request if the prescription is f... Start Date: 01/04/22 Stop Date: 04/04/22 Status: Ordered metFORMIN 500 mg oral tablet 1 each = 500 mg, By Mouth, 2 times a day, # 180 each, 1 Refills, Maintenance, 05/09/21 8:43:00 EDT,Tablet, [facility], Partial fill upon patient request if [...] 01/04/22 11:12:00 EDT, Route to Pharmacy Electronically, [facility], 165, cm, 12/19/21 10:41:00 EST, Height, 103, kg, 11/26/21 8:59:00 EST, Start Date: 01/04/22 Status: Ordered nicotine 21 mg/24 hr transdermal film, extended release 1 patch, Topically, Daily, Maintenance, 11/08/21 12:48:00 EST, Patch, ; Start Date: 11/08/21 Status: Ordered pantoprazole 20 mg oral delayed release tablet 2 tablet = 40 mg, By Mouth, Daily at bedtime, Maintenance, 11/08/21 12:49:00 EST, CR Tablet Start Date: 11/08/21 Status: Ordered prazosin 2 mg oral capsule [...] 0 Refills, Maintenance, 02/09/20 10:05:00 EDT, Inhaler, [facility], 165, cm, 02/08/20 19:47:00 EDT, Height, 104.5, kg, 02/07/20 8:15:00 EDT, Dry Weight Start Date: 02/09/20 Stop Date: 03/10/20 Status: Ordered verapamil 240 mg/12 hours oral tablet, extended release 1 tablet = 240 mg, By Mouth, Daily at bedtime, # 90 tablet, 1 Refills, Maintenance, 05/09/21 8:45:00 EDT, SR Tablet, [facility], 165, cm, 04/11/21 7:42:00 EDT, Height, [...] 3 Oxygen Saturation [94-100 %] 99 % (01/17/22 12:03 PM) 96 % (01/17/22 8:29 AM) 93 % *L* (01/17/22:31 AM) Pulse Rate [55-90 bpm] 87 bpm (01/17/22 12:03 PM) 93 bpm *H* (01/17/22 8:29 AM) 85 bpm (01/17/22:31 AM) Blood Pressure [90-138/55-84 mm Hg] 121/78mm Hg (01/17/22 12:03 PM) 116/83mm Hg (01/17/22 8:29 AM) 141/94mm Hg *H* (01/17/22:31 AM) Respiratory Rate [16-30 br/min] 18 br/min (01/17/22 12:03 PM) 18 br/min (01/17/22 8:29 AM) 18 br/min (01/17/22 12:30 AM) Temperature [96.8-100.4 DegF] 98.3 DegF (01/17/22 12:03 PM) 98.1 DegF (01/17/22 8:29 AM) 98.1 DegF (01/17/22:31 AM) Liters per Minute 0 L/min (01/16/22 6:28 PM) Mode of Delivery (Oxygen) Room air (01/17/22 12:03 PM) Room air (01/17/22 8:29 AM) Room air (01/17/22:31 AM) Blood pressure sites Arm, left (01/17/22 12:30 AM) Temperature Route Oral (01/17/22 12:03 PM) Oral (01/17/22 8:29 AM) Oral (01/16/22 6:28 PM) Social History Social History Type Response Smoking Status 10 or more cigarette s (1/2 pack or more)/day in last 30 days; Type: Cigarettes; Other: Reports smoking 1/2-1 packs/day, ending on level of stress; Started at age: 25; entered on: 12/31/20 Sex
--- OUTSIDE RECORDS SUMMARY | 2023-07-16 14:44 | XMS_ITS | Continuity of Care Document ---
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 Driver Engineer Name Role Phone Maribel Marquez NP Primary Care Physician Encounter [facility] [place] Date(s): 06/10/22 - 06/11/[address] [address]- Encounter Diagnosis Suicidal ideation(Final) - 06/10/22 Discharge Disposition: A-D/C Home Attending Physician: Nilsa Rogers MD Admitting Physician: Nilsa Rogers MD Referring Physician: Not on Staff, Referring MD Allergies, Adverse Reactions, Alerts Substance Reaction Severity Status codeine Active lithium 1 Active penicillin Active predniSONE Active sulfa drugs Active Macrobid Active Seafood Active Geodon Active Zithromax Active 1pt reports 01/17/13 started [...] tablet, 0 Refills, Maintenance, 01/04/22 11:12:00 EDT, [facility], Partial fill upon patient request if [...] 04/11/21 9:22:00 EDT, Route to Pharmacy Electronically, [facility], Partial fill upon patient request if the prescription is for a schedule II opioid drRobi.. Start Date: 04/11/21 Stop Date: 01/06/22 Status: Ordered Flovent HFA 110 mcg/inh inhalation aerosol 2 puffs, Inhalation, 2 times a day, # 12 Gm, 1 Refills, [facility], 162, cm, 03/20/22 19:50:00 EDT, Height, [...] opioid drug. Start Date: 03/03/22 Status: Ordered metFORMIN 500 mg oral tablet See Instructions, TAKE 1 EACH BY MOUTH 2 TIMES A DAY, # 60 tablet, 5 Refills, [facility],165, cm, 01/19/22 13:55:00 EDT, Height, 103, [...] 01/04/22 11:12:00 EDT, Route to Pharmacy Electronically, [facility], 165, cm, 12/19/21 10:41:00 EST, Height, [...] 01/19/22 10:48:00 EDT, Route to Pharmacy Electronically, [facility], Partial fill upon patient request if the prescription is for a schedule... Start Date: 01/19/22 Status: Ordered prazosin 1 mg oral capsule 4 mg, Capsule, By Mouth, 06/10/22 23:46:00 EDT Start Date: 06/10/22 Stop Date: 06/11/22 Status: Completed PROzac 40 mg oral capsule 1 capsule [...] Refills, Maintenance, 05/09/21 8:45:00 EDT, SR Tablet, [facility], 165, cm, 04/11/21 7:42:00 EDT, Height, 102.6, kg, 02/12/21 12:14:00 EDT, Dry Weight Start Date: 05/09/21 Status: Ordered Verapamil Tablet 240 mg, SR Tablet, By Mouth, 06/10/22 23:46:00 EDT Start Date: 06/10/22 Stop Date: 06/11/22 Status: Completed Problem List Condition Effective Dates [...] 3 Oxygen Saturation [94-100 %] 97 % (06/11/22 12:55 AM) 98 % (06/10/22 8:45 PM) Pulse Rate [55-90 bpm] 88 bpm (06/11/22 1:06 AM) 83 bpm (06/11/22 12:55 AM) 84 bpm (06/10/22 8:45 PM) Blood Pressure [90-138/55-84 mm Hg] 124/92mm Hg (06/11/22 1:06 AM) 124/92mm Hg (06/11/22 1:03 AM) 124/78mm Hg (06/11/22 12:55 AM) Respiratory Rate [16-30 br/min] 16 br/min (06/11/22 12:55 AM) 20 br/min (06/10/22 8:45 PM) Temperature [96.8-100.4 DegF] 98.2 DegF (06/10/22 8:45 PM) Mode of Delivery (Oxygen) Room air (06/11/22 12:55 AM) Room air (06/10/22 8:45 PM) Temperature Route Oral (06/10/22 8:45 PM) Social History Social History Type Response Smoking Status 10 or more cigarette s (1/2 pack or more)/day in last 30 days; Type: Cigarettes; Other: Reports smoking 1/2-1 packs/day, ending on level of stress; Started at age: 25; entered on: 12/31/20 Sex Care Team Personnel Name: Maribel Marquez NP Address: [address] [place] [id number]
--- OUTSIDE RECORDS SUMMARY | 2023-07-16 14:44 | XMS_ITS | Continuity of Care Document ---
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 Name Role Phone Maribel Marquez NP Primary Care Physician [phone] Encounter [facility] [place] Date(s): 02/19/23 - 02/19/[address] [address]- Encounter Diagnosis Chest discomfort(Final) - 02/19/23 Discharge Disposition: A-D/C Home Attending Physician: Joel Rivera MD Admitting Physician: Joel Rivera MD Referring Physician: Not on Staff, Referring MD Allergies, Adverse Reactions, Alerts Substance Reaction Severity Status codeine Active Zithromax Active lithium 1 Active penicillin Active predniSONE [...] 10:33:00 EST, Inhaler, Route to Pharmacy Electronically, NCPDP_[id number], [facility], 163, cm, 11/16/22 9:43:00 EST, Height, 97.3,... Start Date: 11/16/22 Status: Ordered atorvastatin 10 mg oral tablet 1 tablet = 10 mg, By Mouth, Daily at bedtime, # 30 tablet, 0 Refills, Maintenance, 11/16/22 10:33:00 EST, Tablet, [facility], Partial fill upon patient request if [...] 11/16/22 10:33:00 EST, Route to Pharmacy Electronically, [facility], Partial fill upon patientrequest if the [...] 0 Refills, Maintenance, 11/16/22 10:33:00 EST, Tablet, [facility], Partial fill upon patient request if [...] 11/16/22 10:34:00 EST, Route to Pharmacy Electronically, [facility], Partial fill upon patient request if the prescription is for a schedule II opioid d... Start Date: 11/16/22 Stop Date: 08/13/23 Status: Ordered FLUoxetine 20 mg oral capsule 80 mg, 4, capsule, By Mouth, Daily in AM, # 120 capsule, Refills 0, Tot. Refills 0, Maintenance, 11/16/22 10:34:00 EST, Route to Pharmacy Electronically, [facility], Partial fill upon patient request if [...] 11/16/22 10:34:00 EST, Route to Pharmacy Electronically, [facility], Partial fill upon patientrequest if the [...] 02/12/23 10:51:00 EDT, Route to Pharmacy Electronically, [facility], Partial fill upon patient requestif the [...] 0 Refills, Maintenance, 11/16/22 10:34:00 EST, Tablet, [facility], Partial fill upon patient request if [...] 0 Refills, Maintenance, 11/16/22 10:34:00 EST, Tablet, [facility], Partial fill upon patient request if [...] 11/16/22 10:34:00 EST, Route to Pharmacy Electronically, [facility], Partial fill upon patient request if the prescription is for a schedule I... Start Date: 11/16/22 Status: Ordered montelukast 10 mg oral tablet Refills 0, Maintenance, 01/06/23 18:05:00 EDT, Partial fill upon patient request if the prescription is for a schedule II opioid drug. Start Date: 01/06/23 Status: Ordered nystatin topical [id number] u/gm cream 1 application, Topically, 2 times a day, # 15 Gm, 0 Refills, Maintenance, 01/05/23 15:04:00 EDT, Cream, [facility], Partial fill upon patient request if the prescription is for a schedule II opioid drug., 1 application Topically 2 times a da... Start Date: 01/05/23 Status: Ordered nystatin topical [id number] u/gm cream 0 Refills, Maintenance, 01/06/23 18:05:00 [...] 11/16/22 10:34:00 EST, Route to Pharmacy Electronically, [facility], Partial fill upon patient request if [...] Maintenance,11/16/22 10:34:00 EST, Route to Pharmacy Electronically, [facility], Partial fill upon patient request if [...] Confirmed Active 1Problem added by Discern Expert Results Radiology Reports * Exam Date Time Procedure Performing Provider Status 02/19/23 7:46 PM Chest 2 Views Frontal and Lat Chino Mancera; Auth (Verified) Notes: (Chest 2 Views Frontal and Lat) Reason For Exam: Shortness of Breath RESULT: Chest 2 Views Frontal and Lat Chest 2 Views Frontal and Lat HX OF PRESENT ILLNESS: Pt c o c p that started after smoking cigarettes, admits to c p at this time. Pt denies sob. Pt admits to n v three times in last two hours. Pt denies abdominal pain, fever chills. Pt has known hx dm. Has not check glucose today. P; Reason: Shortness of Breath; Clinical Question(s): CHF / CHF COMPARISON: 10/14/2022 FINDINGS: LINES AND TUBES: None. LUNGS AND PLEURA: Clear lungs. Normal pulmonary vascularity. Unchanged trace bilateral pleural effusions. No pneumothorax. HEART, MEDIASTINUM AND HENRY: Heart is normal in size. Normal mediastinal and hilar contour. BONES AND SOFT TISSUES: No acute abnormality. IMPRESSION: Unchanged trace bilateral pleural effusions. WSN: [id number] Ordering Physician: Melissa Pa Dictated By: Donavon Botello MD Dictated Date/Time: 02/19/23 7:48 pm Reviewed By: Donavon Botello MD Signed By: Donavon Botello MD Signed Date/Time: 02/19/23 7:48 pm Transcribed By: DAVIS Transcribed Date/Time: 02/19/23 7:47 pm Vital Signs Most recent to oldest [Reference Range]: 1 2 Oxygen Saturation [94-100 %] 99 % (02/19/23 8:38 PM) 97 % (02/19/23 6:30 PM) Pulse Rate [55-90 bpm] 83 bpm (02/19/23 8:38 PM) 78 bpm (02/19/23 6:30 PM) Blood Pressure [90-138/55-84 mm Hg] 145/ 97mm Hg *H* (02/19/23 8:38 PM) 135/81mm Hg (02/19/23 6:30 PM) Respiratory Rate [16-30 br/min] 9 br/min *L* (02/19/23 8:38 PM) 18 br/min (02/19/23 6:30 PM) Temperature [96.8-100.4 DegF] 98.2 DegF (02/19/23 8:38 PM) Mode of Delivery (Oxygen) Room air (02/19/23 8:38 PM) Room air (02/19/23 6:30 PM) Blood pressure sites Arm, left (02/19/23 8:38 PM) Temperature Route Oral (02/19/23 8:38 PM) Social History Social History Type Response Smoking Status 10 or more cigarette s (1/2 pack or more)/day in last 30 days; Type: Cigarettes; Other: Reports smoking 1/2-1 packs/day, ending on level of stress; Started at age: 25; entered on: 11/18/22 Sex Laboratory * [facility] , CIS S: TRANSCRIBE Rosmery LE, Donavon S: VERIFY Event Display: Result: Authored Date: Chest 2 Views Frontal and Lat HX OF PRESENT ILLNESS: Pt c o c p that started after smoking cigarettes, admits to c p at this time. Pt denies sob. Pt admits to n v three times in last two hours. Pt denies abdominal pain, fever chills. Pt has known hx dm. Has not check glucose today. P; Reason: Shortness of Breath; Clinical Question(s): CHF / CHF COMPARISON: 10/14/2022 FINDINGS: LINES AND TUBES: None. LUNGS AND PLEURA: Clear lungs. Normal pulmonary vascularity. Unchanged trace bilateral pleural effusions. No pneumothorax. HEART, MEDIASTINUM AND HENRY: Heart is normal in size. Normal mediastinal and hilar contour. BONES AND SOFT TISSUES: No acute abnormality. IMPRESSION: Unchanged trace bilateral pleural effusions. WSN: [id number] Ordering Physician: Melissa Pa Dictated By: Donavon Botello MD Dictated Date/Time: 02/19/23 7:48 pm Reviewed By: Donavon Botello MD Signed By: Donavon Botello MD Signed Date/Time: 02/19/23 7:48 pm Transcribed By: CSJose Alejandro Transcribed Date/Time: 02/19/23 7:47 pm Patient Care team information Care Team Personnel Name: Rudi Ruiz RN Position: [facility] ED RN W/OE and Tasks Member Role: Primary Care Nurse Name: Alicja Riggs RN Position: [facility] RN Member Role: Primary Care Nurse Name: Ros Fu RN Position: [facility] RN Member Role: Primary Care Nurse Name: Hilda Mccabe RN Position: [facility] RN Member Role: Primary Care Nurse Name: Rosana Kearney RN Position: [facility] SN RN Member Role: Primary Care Nurse Name: Wil Flood RN Position: [facility] RN Member Role: Primary Care Nurse Name: Gagandeep Sheldon RN Position: [facility] RN Member Role: Primary Care Nurse Name: Chip Morton Position: [facility] Outreach Member Role: Lifetime Consulting Physician Name: Alba Daily RN Position: [facility] RN Member Role: Primary Care Nurse Name: Maribel Marquez NP Position: [facility] PCO Associate Professional Member Role: PCP Address: Address: [address] [place] [address]- Name: Jose Ramirez RN Position: [facility] RN Member Role: Primary Care Nurse Name: Brittany Butts RN Position: [facility] AMB Nurse Member Role: Primary Care Nurse Name: Pauline Mcadams RN Position: [facility] RN Member Role: Primary Care Nurse Name: Mary Sánchez RN Position: [facility] RN Member Role: Primary Care Nurse Name: Shama Rosado RN Position: [facility] RN Member Role: Primary Care Nurse Name: Jackie Snyder RN Position: [facility] RN Member Role: Primary Care Nurse Name: Jay Burks NP Position: Reference Physician Member Role: Primary Care Nurse Address: Address: [address] [place], [place] [id number] [facility] [place] [address]- [place] Name: Parvez Kaba MD Position: [facility] Renal MD Member Role: Lifetime Consulting Physician Address: Address: [address] [place] [address] [facility] [place] [address]- Name: Mirna Paul RN Position: [facility] OB RN Member Role: Primary Care Nurse Name: Latonya Rahman RN Position: [facility] Onco RN Member Role: Primary Care Nurse Name: Viki Gonzalez RN Position: [facility] RN Member Role: Primary Care Nurse Name: Claudia Presley RN Position: [facility] RN Member Role: Primary Care Nurse Name: Iris Villa RN Position: [facility] Hospital Enterprise Sales Person Member Role: Primary Care Nurse Name: Joel Rivera MD Position: [facility] ED Medicine MD Member Role: Admitting Physician Address: Address: [address] [place] [address]- Name: Jona Aragon RN Position: [facility] ED RN W/OE and Tasks Member Role: Patient Care Provider Name: Jackie Paz Position: [facility] ED TA [facility] Name: Melissa Pa MD Position: [facility] Resident Member Role: ED Resident Address: Address: [address] [place] [address]- Care Team Related Persons Name: LISBETH- LABOR RELATIONS OFFICERINDRA Address: home [address] [place] [address] Name: VAULT CASHIERGREGG Address: [address] [place] [address] Name: CARLOS PAZ Address: home [address] [place] [address]
--- OUTSIDE RECORDS SUMMARY | 2023-07-16 14:44 | XMS_ITS | Continuity of Care Document ---
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 Name Role Phone Maribel Marquez NP Primary Care Physician [place] [facility] [place] 03[place]31[place]21 [place] 04/30/21 [facility] [address] [place] [address]- Allergies, Adverse Reactions, Alerts Substance Reaction Severity [...] 0 Refills, Maintenance, 12/23/20 16:38:00 EST, Tablet, [facility], Partial fill upon [...] 07/22/20 18:41:00 EDT, Route to Pharmacy Electronically, [facility], 163.5, cm, 07/22/20 18:29:00 EDT, Height, [...] 0 Refills, Maintenance, 12/23/20 15:38:00 EST, Aerosol, [facility], 162, cm, 12/23/20 10:43:00 EST, Height, 122.1, kg, 12/21/20 16:25:00 EST, Dry Weight Start Date: 12/23/20 Status: Ordered Haldol Decanoate decanoate 100 mg/ml injectable solution = 100 mg, Intramuscular, Every 28 days, last dose given on 09/17/2020. Next due 10/15/20., # 1 each, 0Refills, Soft Stop, 07/22/20 18:42:00 EDT, Solution, [facility], 163.5, cm, 07/22/20 18:29:00 EDT, Height, 102.5, kg, 07/18/20 21:04:00 EDT,... Start Date: 07/22/20 Status: Ordered lisinopril 5 mg oral tablet 5 mg, 1, tablet, By Mouth, Daily, # 30 tablet, Refills 0, Tot. Refills 0, Maintenance, 02/09/20 10:10:00 EDT, Route to Pharmacy Electronically, [facility], 165, cm, 02/08/20 19:47:00 EDT, Height, [...] 0 Refills, Maintenance, 12/23/20 16:38:00 EST, Tablet, [facility], Partial fill upon patient request if the prescription is for a schedule II opioid drug., 162, cm, 12/23/20 15:59:00 EST... Start Date: 12/23/20 Stop Date: 01/22/21 Status: Ordered montelukast 10 mg oral tablet 10 mg, 1, tablet, By Mouth, Daily, # 30 tablet, Refills 0, Tot. Refills 0, Maintenance, 02/09/20 10:11:00 EDT, Route to Pharmacy Electronically, [facility], 165, cm, 02/08/20 19:47:00 EDT, Height, 104.5, kg, 02/07/20 8:15:00 EDT, Dry Weight Start Date: 02/09/20 Status: Ordered norethindrone 0.35 mg oral tablet 1 tablet = 0.35 mg, By Mouth, Daily, # 30 tablet, 0 Refills, Maintenance, 02/09/20 10:07:00 EDT, Tablet, [facility], 165, cm, 02/08/20 19:47:00 EDT, Height, [...] Refills, Maintenance, 04/11/21 9:22:00 EDT, REC Powder, [facility], Partial fill upon patient request if the prescription is for a schedule II opioid Start Date: 04/11/21 Stop Date: 07/10/21 Status: [...] 0 Refills, Maintenance, 02/09/20 10:05:00 EDT, Inhaler, [facility], 165, cm, 02/08/20 19:47:00 EDT, Height, 104.5, kg, 02/07/20 8:15:00 EDT, Dry Weight Start Date: 02/09/20 Stop Date: 03/10/20 Status: Ordered verapamil 240 mg/12 hours oral tablet, extended release 1 tablet = 240 mg, By Mouth, Daily at bedtime, # 30 tablet, 0 Refills, Maintenance, 02/09/20 10:14:00 EDT, SR Tablet, [facility], 165, cm, 02/08/20 19:47:00 EDT, Height, [...]
--- OUTSIDE RECORDS SUMMARY | 2023-07-16 14:44 | XMS_ITS | Continuity of Care Document ---
Author Name Unknown Organization [facility] Adult Address [address] [place] [address]- Care Team Providers Care Cardiac Rn Name Role Phone Maribel Marquez NP Primary Care Physician [phone] Encounter [facility] [place] Date(s): 04/11/21 - 05/11/21 [facility] [address] [place] [address]- Allergies, Adverse Reactions, Alerts Substance Reaction Severity [...] 0 Refills, Maintenance, 12/23/20 16:38:00 EST, Tablet, [facility], Partial fill [...] 0 Refills, Maintenance, 02/09/20 10:08:00 EDT, Tablet, [facility], 165, cm, 02/08/20 19:47:00 EDT, Height, 104.5, kg,02/07/20 8:15:00 EDT, Dry Weight Start Date: 02/09/20 Status: Ordered doxazosin 1 mg oral tablet 3 mg, 3, tablet, By Mouth, Daily at bedtime, # 90 tablet, Refills 0, Tot. Refills 0, Maintenance, 07/22/20 18:41:00 EDT, Route to Pharmacy Electronically, [facility], 163.5, cm, 07/22/20 18:29:00 EDT, Height, [...] 3 Refills, Maintenance, 05/09/21 8:41:00 EDT, Aerosol, [facility], 165, cm, 04/11/21 7:42:00 EDT, Height, 102.6, kg, 02/12/21 12:14:00 EDT, Dry Weight Start Date: 05/09/21 Status: Ordered Haldol Decanoate decanoate 100 mg/ml injectable solution = 100 mg, Intramuscular, Every 28 days, last dose given on 09/17/2020. Next due 10/15/20., # 1 each, 0Refills, Soft Stop, 07/22/20 18:42:00 EDT, Solution, [facility], 163.5, cm, 07/22/20 18:29:00 EDT, Height, 102.5, kg, 07/18/20 21:04:00 EDT,... Start Date: 07/22/20 Status: Ordered lisinopril 5 mg oral tablet 5 mg, 1, tablet, By Mouth, Daily, # 90 tablet, Refills 1, Tot. Refills 1, Maintenance, 05/09/21 8:43:00 EDT, Route to Pharmacy Electronically, [facility], 165, cm, 04/11/21 7:42:00 EDT, Height, [...] Maintenance, 07/18/20 19:50:00 EDT, Tablet Start Date: 10/4/20 Status: Ordered metFORMIN 500 mg oral tablet 1 each = 500 mg, By Mouth, 2 times a day, # 180 each, 1 Refills, Maintenance, 05/09/21 8:43:00 EDT,Tablet, [facility], Partial fill upon patient request if the prescription is for a schedule II opioid drug., 165, cm, 04/11/21 7:42:00 EDT, H... Start Date: 05/09/21 Stop Date: 11/05/21 Status: Ordered montelukast 10 mg oral tablet 10 mg, 1, tablet, By Mouth, Daily, # 90 tablet, Refills 1, Tot. Refills 1, Maintenance, 05/09/21 8:45:00 EDT, Route to Pharmacy Electronically, [facility], 165, cm, 04/11/21 7:42:00 EDT, Height, [...] Gm, 5 Refills, Acute, 05/10/21 11:59:00 EDT, [facility], 15, TAKE 17 GM BY MOUTH [...] 0 Refills, Maintenance, 02/09/20 10:05:00 EDT, Inhaler, [facility], 165, cm, 02/08/20 19:47:00 EDT, Height, 104.5, kg, 02/07/20 8:15:00 EDT, Dry Weight Start Date: 02/09/20 Stop Date: 03/10/20 Status: Ordered verapamil 240 mg/12 hours oral tablet, extended release 1 tablet = 240 mg, By Mouth, Daily at bedtime, # 90 tablet, 1 Refills, Maintenance, 05/09/21 8:45:00 EDT, SR Tablet, [facility], 165, cm, 04/11/21 7:42:00 EDT, Height, [...]
--- OUTSIDE RECORDS SUMMARY | 2023-07-16 14:44 | XMS_ITS | Continuity of Care Document ---
Author Name Unknown Organization [facility] Adult Address [address] [place] [address]- Care Team Providers Care Home Care Assistant Name Role Phone Maribel Marquez NP Primary Care Physician Encounter [facility] [place] Date(s): 02/03/21 - 03/05/21 [facility] Adult [address] [place] [address]- Allergies, Adverse Reactions, Alerts Substance Reaction Severity [...] 0 Refills, Maintenance, 12/23/20 16:38:00 EST, Tablet, [facility], Partial fill upon patient request if [...] 0 Refills, Maintenance, 02/09/20 10:08:00 EDT, Tablet, [facility], 165, cm, 02/08/20 19:47:00 EDT, Height, 104.5, kg,02/07/20 8:15:00 EDT, Dry Weight Start Date: 02/09/20 Status: Ordered doxazosin 1 mg oral tablet 3 mg, 3, tablet, By Mouth, Daily at bedtime, # 90 tablet, Refills 0, Tot. Refills 0, Maintenance, 07/22/20 18:41:00 EDT, Route to Pharmacy Electronically, [facility], 163.5, cm, 07/22/20 18:29:00 EDT, Height, 102.5, kg, 07/18/20 21:04:00 EDT... Start Date: 07/22/20 Status: Ordered ferrous sulfate 325 mg oral enteric coated tablet 325 mg, 1, tablet, By Mouth, Daily, # 30 tablet, Refills 0, Tot. Refills 0, Maintenance, 12/23/20 15:38:00 EST, Route to Pharmacy Electronically, [facility], Partial fill upon patient request if the prescription is for a schedule II opioid d... Start Date: 12/23/20 Status: Ordered Flovent HFA 110 mcg/inh inhalation aerosol 2 puffs = 220 mcg, Inhalation, 2 times a day, # 1 each, 0 Refills, Maintenance, 12/23/20 15:38:00 EST, Aerosol, [facility], 162, cm, 12/23/20 10:43:00 EST, Height, 122.1, kg, 12/21/20 16:25:00 EST, Dry Weight Start Date: 12/23/20 Status: Ordered Haldol Decanoate decanoate 100 mg/ml injectable solution = 100 mg, Intramuscular, Every 28 days, last dose given on 09/17/2020. Next due 10/15/20., # 1 each, 0Refills, Soft Stop, 07/22/20 18:42:00 EDT, Solution, [facility], 163.5, cm, 07/22/20 18:29:00 EDT, Height, 102.5, kg, 07/18/20 21:04:00 EDT,... Start Date: 07/22/20 Status: Ordered lisinopril 5 mg oral tablet 5 mg, 1, tablet, By Mouth, Daily, # 30 tablet, Refills 0, Tot. Refills 0, Maintenance, 02/09/20 10:10:00 EDT, Route to Pharmacy Electronically, [facility], 165, cm, 02/08/20 19:47:00 EDT, Height, [...] 0 Refills, Maintenance, 12/23/20 16:38:00 EST, Tablet, [facility], Partial fill upon patient request if the prescription is for a schedule II opioid drug., 162, cm, 12/23/20 15:59:00 EST... Start Date: 12/23/20 Stop Date: 01/22/21 Status: Ordered montelukast 10 mg oral tablet 10 mg, 1, tablet, By Mouth, Daily, # 30 tablet, Refills 0, Tot. Refills 0, Maintenance, 02/09/20 10:11:00 EDT, Route to Pharmacy Electronically, [facility], 165, cm, 02/08/20 19:47:00 EDT, Height, 104.5, kg, 02/07/20 8:15:00 EDT, Dry Weight Start Date: 02/09/20 Status: Ordered norethindrone 0.35 mg oral tablet 1 tablet = 0.35 mg, By Mouth, Daily, # 30 tablet, 0 Refills, Maintenance, 02/09/20 10:07:00 EDT, Tablet, [facility], 165, cm, 02/08/20 19:47:00 EDT, Height, [...] Refills, Maintenance, 12/23/20 15:38:00 EST, REC Powder, [facility], Partial fill upon patient request if [...] 0 Refills, Maintenance, 02/09/20 10:05:00 EDT, Inhaler, [facility], 165, cm, 02/08/20 19:47:00 EDT, Height, 104.5, kg, 02/07/20 8:15:00 EDT, Dry Weight Start Date: 02/09/20 Stop Date: 03/10/20 Status: Ordered verapamil 240 mg/12 hours oral tablet, extended release 1 tablet = 240 mg, By Mouth, Daily at bedtime, # 30 tablet, 0 Refills, Maintenance, 02/09/20 10:14:00 EDT, SR Tablet, [facility], 165, cm, 02/08/20 19:47:00 EDT, Height, [...]
--- OUTSIDE RECORDS SUMMARY | 2023-07-16 14:44 | XMS_ITS | Continuity of Care Document ---
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 Start Date: 04/11/21 Stop Date: 01/06/22 Status: Ordered Flovent HFA 110 mcg/inh inhalation aerosol 2 puffs, Inhalation, 2 times a day, # 12 Gm, 1 Refills, [facility], 162, cm, 03/20/22 19:50:00 EDT, Height, [...] A DAY, # 60 tablet, 5 Refills, [facility],165, cm, 01/19/22 13:55:00 EDT, Height, 103, [...] 01/04/22 11:12:00 EDT, Route to Pharmacy Electronically, [facility], 165, cm, 12/19/21 10:41:00 EST, Height, [...] 01/19/22 10:48:00 EDT, Route to Pharmacy Electronically, [facility], Partial fill upon patient request if [...] Refills, Maintenance, 05/09/21 8:45:00 EDT, SR Tablet, [facility], 165, cm, 04/11/21 7:42:00 EDT, Height, [...] Team Personnel Name: Maribel Marquez NP Address: [address] [place] [id number]
--- OUTSIDE RECORDS SUMMARY | 2023-07-16 14:44 | XMS_ITS | Continuity of Care Document ---
Author Name Unknown Organization [facility] ter Address [address] [place] [id number]- Care Team Providers Care Folding Rules Printing Machine Operator Name Role Phone Maribel Marquez NP Primary Care Physician [place] [facility] [place] 07/07/23 - 07/07/[address] [address]- Encounter Diagnosis Auditory hallucination(Final) - 07/07/23 Discharge Disposition: A-D/C Home Attending Physician: Jimmy [...] each, 5 Refills, Maintenance, 05/22/23 11:32:00 EDT, [facility], Partial fill upon patient request if the prescription is for a schedule II opioid drug., 2 puffs Inhal... Start Date: 05/22/23 Stop Date: 05/22/24 Status: Ordered albuterol CFC free 90 mcg/inh inhalation aerosol 90 mcg, 1, puffs, Inhalation, Every 4 hours, PRN, # 6.7 Gm, Refills 0, Tot. Refills 0, Maintenance,11/16/22 10:33:00 EST, Inhaler, Route to Pharmacy Electronically, NCPDP_[id number], [facility], 163, cm, 11/16/22 9:43:00 EST, Height, 97.3,... Start Date: 11/16/22 Status: Ordered atorvastatin 10 mg oral tablet 1 tablet = 10 mg, By Mouth, Daily at bedtime, # 30 tablet, 0 Refills, Maintenance, 11/16/22 10:33:00 EST, Tablet, [facility], Partial fill upon patient request if [...] 11/16/22 10:33:00 EST, Route to Pharmacy Electronically, [facility], Partial fill upon patientrequest if [...] 0 Refills, Maintenance, 11/16/22 10:33:00 EST, Tablet, [facility], Partial fill upon patient request if [...] 11/16/22 10:34:00 EST, Route to Pharmacy Electronically, [facility], Partial fill upon patient request if the prescription is for a schedule II opioid d... Start Date: 11/16/22 Stop Date: 08/13/23 Status: Ordered FLUoxetine 20 mg oral capsule 80 mg, 4, capsule, By Mouth, Daily in AM, # 120 capsule, Refills 0, Tot. Refills 0, Maintenance, 11/16/22 10:34:00 EST, Route to Pharmacy Electronically, [facility], Partial fill upon patient request if [...] 11/16/22 10:34:00 EST, Route to Pharmacy Electronically, [facility], Partial fill upon patientrequest if the [...] 02/12/23 10:51:00 EDT, [facility], [facility] [...] 60 tablet, 1 Refills, Maintenance,02/22/23 10:08:00 EDT, [facility], 146, cm, 02/05/23 20:22:00 EDT, Height, [...] 0 Refills, Maintenance, 11/16/22 10:34:00 EST, Tablet, [facility], Partial fill [...] 0 Refills, Maintenance, 11/16/22 10:34:00 EST, Tablet, [facility], Partial fill upon patient request if [...] 11/16/22 10:34:00 EST, Route to Pharmacy Electronically, [facility], Partial fill upon patient request if [...] 11:34:00 EDT, 05/22/23 11:32:00 EDT, ER Tablet, [facility], Partial fill upon patient request if the prescription is for a radha... Start Date: 05/22/23 Stop Date: 05/29/24 Status: Ordered nystatin topical 600493 u/gm cream 1 application, Topically, 2 times a day, # 15 Gm, 0 Refills, Maintenance, 01/05/23 15:04:00 EDT, Cream, [facility], Partial fill upon patient request if the prescription is for a schedule II opioid drug., 1 application Topically 2 times a da... Start Date: 01/05/23 Status: Ordered nystatin topical 819592 u/gm cream 0 Refills, Maintenance, 01/06/23 18:05:00 [...] 11/16/22 10:34:00 EST, Route to Pharmacy Electronically, [facility], Partial fill upon patient request if [...] Maintenance,11/16/22 10:34:00 EST, Route to Pharmacy Electronically, [facility], Partial fill upon patient request if [...] to oldest [Reference Range]: 1 2 Height 158 cm (07/07/23 4:44 PM) 158 cm (07/07/23 4:27 PM) Oxygen Saturation [94-100 %] 100 % (07/07/23 4:27 PM) Pulse Rate [55-90 bpm] 91 bpm *H* (07/07/23 4:27 PM) Blood Pressure [90-138/55-84 mm Hg] 136/ 64mm Hg (07/07/23 4:27 PM) Temperature [96.8-100.4 DegF] 98.4 DegF (07/07/23 4:27 PM) Mode of Delivery (Oxygen) Room air (07/07/23 4:27 PM) Blood pressure sites Arm, right (07/07/23 4:27 PM) Temperature Route Oral (07/07/23 4:27 PM) Dry Weight 75 kg (07/07/23 4:44 PM) 75 kg (07/07/23 4:27 PM) Weight Obtained Via Patient/family state d (07/07/23 4:27 PM) Dry Weight Obtained Via Patient/family s tated (07/07/23 4:27 PM) Social History Social History Type Response Smoking Status 10 or more cigarette s (1/2 pack or more)/day in last 30 days; Type: Cigarettes; Other: Reports smoking 1/2-1 packs/day, ending on level of stress; Started at age: 25; entered on: 11/18/22 Sex Note * Carol Desouza MD: PERFORM Event Display: Patient Education Leaflets Authored Date: [id number] Abrasions ?? [id number] Abrasions Abrasions are skin scrapes. Their treatment depends on how large and deep the abrasion is. Home care You may be prescribed an antibiotic cream or ointment to apply to the wound. This helps prevent infection. Follow instructions when using this medicine. General care ??? To care for the abrasion, do the following each day for as long as directed by your healthcare provider: o If you were given a bandage, change it once a day. If your bandage sticks to the wound, soak it in warm water until it loosens. o Wash the area with soap and warm water. You may do this in a sink or under a tub faucet or shower. Rinse off the soap. Then pat the area dry witha clean towel. o If antibiotic ointment or cream was prescribed, reapply it to the wound as directed. Cover the wound with a fresh nonstick bandage. If the bandage becomes wet or dirty, change it as soon as possible. o Some antibiotic ointments or cream can cause an allergic reaction or dermatitis.This may cause redness, itching, or hives. If this occurs, stop using the ointment right away and wash off any remaining ointment. You may need to take some allergy medicine to relieve symptoms. ??? You may use acetaminophen or ibuprofen to control pain unless another pain medicine was prescribed.??Talk with your healthcare provider before using these medicines if you have chronic liver or kidneydisease, or ever had a stomach ulcer or digestive tract bleeding. Don???t use ibuprofen in childrenyounger than 6 months old. ??? Most skin wounds heal within 10 days. But an infection may occur even with treatment. So it???s important to watch the wound for signs of infection as listed below. ?? Follow-up care Follow up with your healthcare provider as advised. ?? When to get medical advice Call your healthcare provider right away if any of these occur: ??? Fever of 100.4??F (38??C) or higher, or as advised by your provider ??? Increasing pain, redness, swelling, or fluid leaking from the wound ??? Bleeding from the wound that doesn't stop after a few minutes of steady, firm pressure ??? Decreased ability to move any body part near the wound ?? Last Reviewed Date: 2022 ?? 3787-2682 [employer]. All rights reserved. This information is not intended as a substitute for professional medical care. Always follow your healthcare professional's instructions. ?? Patient Care team information Care Team Personnel Name: Rudi Ruiz RN Position: [facility]IR[facility] RN W/OE and Tasks Member Role: Primary Care Nurse Name: Alicja Riggs RN Position: S RN Member Role: Primary Care Nurse Name: Ros Fu RN Position: [facility] RN Member Role: Primary Care Nurse Name: Hilda Mccabe RN Position: [facility] RN Member Role: Primary Care Nurse Name: Rosana Kearney RN Position: [facility] SN RN Member Role: Primary Care Nurse Name: Wil Flood RN Position: [facility] RN Member Role: Primary Care Nurse Name: Gagandeep Sheldon RN Position: [facility] RN Member Role: Primary Care Nurse Name: Alba Daily RN Position: [facility] RN Member Role: Primary Care Nurse Name: Maribel Marquez NP Position: [facility] PCO Associate Professional Member Role: PCP Address: Address: [address] [place] [address]- [place] Name: Jose Ramirez RN Position: [facility] RN Member Role: Primary Care Nurse Name: Brittany Butts RN Position: [facility] AMB Nurse Member Role: Primary Care Nurse Name: Pauline Mcadams RN Position: [facility] RN Member Role: Primary Care Nurse Name: Mary Sánchez RN Position: [facility] RN Member Role: Primary Care Nurse Name: Shama Rosado RN Position: [facility] RN Member Role: Primary Care Nurse Name: Jackie Snyder RN Position: [facility] RN Member Role: Primary Care Nurse Name: Jay Burks NP Position: Reference Physician Member Role: Primary Care Nurse Address: Address: [address] [place] [address] [facility] [place] [address]- Name: Parvez Kaba MD Position: [facility] Renal MD Member Role: Lifetime Consulting Physician Address: Address: [address] [place] [address] [facility] [place] [address]- Name: Mirna Paul RN Position: [facility] OB RN Member Role: Primary Care Nurse Name: Latonya Rahman RN Position: [facility] Onco RN Member Role: Primary Care Nurse Name: Viki Gonzalez RN Position: [facility] RN Member Role: Primary Care Nurse Name: Claudia Presley RN Position: [facility] RN Member Role: Primary Care Nurse Name: Iris Villa RN Position: [facility] Hospital Marine Erector Member Role: Primary Care Nurse Name: Jimmy Alfonso MD Position: [facility] Resident Member Role: Admitting Physician Address: Address: [address] [place] [address]- Name: Rylee Hoskins RN Position: [facility] ED RN W/OE and Tasks Member Role: Patient Care Provider Name: Carol Desouza MD Position: [facility] Resident Member Role: ED Resident Address: Address: [address] [place] [address]- Care Team Related Persons Name: JO-ANN ROMANSUPERINTENDENT OIL FIELD DRILLINGINDRA Address: [address] [place] [address] Name: BAIT TIERGREGG Address: [address] [place] [address] Name: CARLOS PAZ Address: [address] [place] [address]
--- OUTSIDE RECORDS SUMMARY | 2023-07-16 14:44 | XMS_ITS | Continuity of Care Document ---
Author Name Unknown Organization [facility] Address [address] [place] [address]- Care Team Providers Care Cartography/Mapping Technician Name Role Phone Maribel Marquez NP Primary Care Physician [phone] Encounter [facility] [place] Date(s): 12/12/21 - 12/19/21 [facility] [address] [place] [address]- Encounter Diagnosis Borderline personality disorder(Discharge Diagnosis) - 12/12/21 Superficial burn(Discharge Diagnosis) - 12/12/21 Attending Physician: Justin Mathews MD Allergies, Adverse Reactions, Alerts Substance Reaction Severity Status codeine Active lithium 1 Active penicillin Active sulfa drugs Active Macrobid Active Zithromax Active Seafood Active Geodon Active predniSONE Active 1pt reports 01/17/13 started taking lithium [...] Russel rded influenza virus vaccine, inactivated 07/23/06 Rsusel rded tetanus/diphtheria/pertussis, acel(Tdap) 04/20/21 Recorded tetanus/diphtheria/pertussis, acel(Tdap) [...] tablet, 0 Refills, Maintenance, 12/14/21 9:46:00 EST, [facility], Partial fill upon patient request if [...] 07/22/20 18:41:00 EDT, Route to Pharmacy Electronically, [facility], 163.5, cm, 07/22/20 18:29:00 EDT, Height, 102.5, kg, 07/18/20 21:04:00 EDT... Start Date: 07/22/20 Status: Ordered ferrous sulfate 325 mg oral enteric coated tablet 325 mg, 1, tablet, By Mouth, Daily, # 90 tablet, Refills 2, Tot. Refills 2, Maintenance, 04/11/21 9:22:00 EDT, Route to Pharmacy Electronically, [facility], Partial fill upon patient request if the prescription is for a schedule II opioid . Start Date: 04/11/21 Stop Date: 01/06/22 Status: Ordered Flovent HFA 110 mcg/inh inhalation aerosol 2 puffs = 220 mcg, Inhalation, 2 times a day, # 3 each, 3 Refills, Maintenance, 05/09/21 8:41:00 EDT, Aerosol, [facility], 165, cm, 04/11/21 7:42:00 EDT, Height, [...] 05/09/21 8:43:00 EDT, Route to Pharmacy Electronically, [facility], 165, cm, 04/11/21 7:42:00 EDT, Height, [...] 04/11/21 9:38:00 EDT, Route to Pharmacy Electronically, [facility], Partial fill upon patient requestif the [...] a schedule II opioid drug. Start Date: 12/8/20 Status: Ordered LORazepam 1 mg oral tablet 1 tablet = 1 mg, By Mouth, 2 times a day, PRN as needed for anxiety, 0 Refills, Maintenance, 07/18/20 19:50:00 EDT, Tablet Start Date: 07/18/20 Status: Ordered metFORMIN 500 mg oral tablet 1 each = 500 mg, By Mouth, 2 times a day, # 180 each, 1 Refills, Maintenance, 05/09/21 8:43:00 EDT,Tablet, [facility], Partial fill upon patient request if [...] 05/09/21 8:45:00 EDT, Route to Pharmacy Electronically, [facility], 165, cm, 04/11/21 7:42:00 EDT, Height, [...] Start Date: 11/08/21 Status: Ordered nystatin topical 077635 u/gm cream 1 application, Topically, 2 times [...] Gm, 5 Refills, Acute, 05/10/21 11:59:00 EDT, [facility], 15, TAKE 17 GM BY MOUTH [...] 0 Refills, Maintenance, 02/09/20 10:05:00 EDT, Inhaler, [facility], 165, cm, 02/08/20 19:47:00 EDT, Height, 104.5, kg, 02/07/20 8:15:00 EDT, Dry Weight Start Date: 02/09/20 Stop Date: 03/10/20 Status: Ordered verapamil 240 mg/12 hours oral tablet, extended release 1 tablet = 240 mg, By Mouth, Daily at bedtime, # 90 tablet, 1 Refills, Maintenance, 05/09/21 8:45:00 EDT, SR Tablet, [facility], 165, cm, 04/11/21 7:42:00 EDT, Height, [...] Effective Dates Health Status Clinical Service Informant Borderline personality disorder Discharge Diagnosis 12/12/21 Superficial burn Discharge Diagnosis 12/12/21 Vital Signs Most recent to oldest [Reference Range]: 1 Height 165 cm (12/12/21 1:33 PM) Weight 106 kg (12/12/21 1:33 PM) Oxygen Saturation [94-100 %] 97 % (12/12/21 1:33 PM) Pulse Rate [55-90 bpm] 105 bpm *H* (12/12/21 1:33 PM) Body Mass Index [18.5-24.99] 38.93 *>HHI* (12/12/21 1:33 PM) Blood Pressure [90-138/55-84 mm Hg] 107/ 75mm Hg (12/12/21 1:33 PM) Temperature [96.8-100.4 DegF] 98 DegF (12/12/21 1:33 PM) Mode of Delivery (Oxygen) Room air (12/12/21 1:33 PM) Blood pressure sites Arm, right (12/12/21 1:33 PM) Temperature Route Oral (12/12/21 1:33 PM) Weight Obtained Via Standing scale (12/12/21 1:33 PM) Social History Social History Type Response Smoking Status 10 or more cigarette s (1/2 pack or more)/day in last 30 days; Type: Cigarettes; Other: Reports smoking 1/2-1 packs/day, ending on level of stress; Started at age: 25; entered on: 12/31/20 Sex
--- OUTSIDE RECORDS SUMMARY | 2023-07-16 14:44 | XMS_ITS | Continuity of Care Document ---
Author Name Unknown Organization [facility] Address [address] [place] [address]- Care Team Providers Care Microphone Operator Name Role Phone Maribel Marquez NP Primary Care Physician Encounter [facility] Date(s): 09/15/22 - 10/15/22 [facility] [address] [place] [address]- Allergies, Adverse Reactions, Alerts Substance Reaction Severity [...] tablet, 1 Refills, Maintenance, 07/24/22 15:17:00 EDT, [facility], 165.2, cm, 07/19/22 10:30:00 EDT, Height, [...] 04/11/21 9:22:00 EDT, Route to Pharmacy Electronically, [facility], Partial fill upon patient request if the prescription is for a schedule II opioid dr... Start Date: 04/11/21 Stop Date: 01/06/22 Status: Ordered Flovent HFA 110 mcg/inh inhalation aerosol 2 puffs, Inhalation, 2 times a day, # 12 Gm, 1 Refills, [facility], 162, cm, 03/20/22 19:50:00 EDT, Height, [...] 07/21/22 14:07:00 EDT, Route to Pharmacy Electronically, [facility], Partial fill upon patient requestif the prescription is for a schedule II opioid kaela... Start Date: 07/21/22 Stop Date: 04/17/23 Status: Ordered metFORMIN 500 mg oral tablet See Instructions, TAKE 1 EACH BY MOUTH 2 TIMES A DAY, # 60 tablet, 5 Refills, 08/07/22 10:55:00 EDT, [facility], 165.2, cm, 07/19/22 10:30:00 EDT, Height, 96, kg, 07/16/22 20:57:00 EDT, DryWeight Start Date: 08/07/22 Status: Ordered mirtazapine 7.5 mg oral tablet 1 tablet = 7.5 mg, By Mouth, Daily at bedtime, Maintenance, 11/08/21 12:51:00 EST, ; Start Date: 11/08/21 Status: Ordered montelukast 10 mg oral tablet 1, tablet, By Mouth, Daily, # 90 tablet, Refills 1, Maintenance, 10/04/22 15:29:00 EST, Route to Pharmacy Electronically, [facility], 157, cm, 10/01/22 6:31:00 EST, Height, 100, kg, 10/01/22 6:31:00 EST, Dry Weight Start Date: 10/04/22 Status: Ordered pantoprazole 40 mg oral delayed [...] 01/19/22 10:48:00 EDT, Route to Pharmacy Electronically, [facility], Partial fill upon patient request if the prescription is for a schedule... Start Date: 01/19/22 Status: Ordered ProAir HFA 90 mcg/inh inhalation aerosol 2 puffs, Inhalation, 4 times a day, PRN as needed for wheezing, # 6.7 Gm, 1 Refills, Maintenance, 06/23/22 16:17:00 EDT, Aerosol, [facility], Partial fill upon patient request [...] 07/28/22 7:45:00 EDT, Route to Pharmacy Electronically, [facility], 165.2, cm, 07/19/22 10:30:00 EDT, Height, [...] Refills, Maintenance, 05/09/21 8:45:00 EDT, SR Tablet, [facility], 165, cm, 04/11/21 7:42:00 EDT, Height, [...] Team Personnel Name: Rudi Ruiz RN Position: [facility] ED RN W/OE and Tasks Member Role: Primary Care Nurse Name: Alicja Riggs RN Position: [facility] RN Member Role: Primary Care Nurse Name: Ros Fu RN Position: [facility] RN Member Role: Primary Care Nurse Name: Hilda Mccabe RN Position: [facility] RN Member Role: Primary Care Nurse Name: Rosana Kearney RN Position: [facility] AMB Nurse Member Role: Primary Care Nurse Name: Wil Flood RN Position: [facility] RN Member Role: Primary Care Nurse Name: Gagandeep Sheldon RN Position: [facility] RN Member Role: Primary Care Nurse Name: Chip Morton Position: [facility] Outreach Member Role: Lifetime Consulting Physician Name: Alba Daily RN Position: [facility] RN Member Role: Primary Care Nurse Name: Maribel Marquez NP Position: [facility] PCO Associate Professional Member Role: PCP Address: Address: [address] [place] [address]- Name: Jose Ramirez RN Position: [facility] RN Member Role: Primary Care Nurse Name: Brittany Butts RN Position: [facility] AMB Nurse Member Role: Primary Care Nurse Name: Mary Sánchez RN Position: [facility] RN Member Role: Primary Care Nurse Name: Shama Rosado RN Position: [facility] RN Member Role: Primary Care Nurse Name: Jackie Snyder RN Position: [facility] RN Member Role: Primary Care Nurse Name: Jay Burks NP Position: Reference Physician Member Role: Primary Care Nurse Address: Address: [address] [place], [place] [id number] Clinical & [place] [address]- Name: Parvez Kaba MD Position: [facility] Renal MD Member Role: Lifetime Consulting Physician Address: Address: [address] [place] [address] [facility] [place] [address]- Name: Yoana Ledezma RN Position: [facility] RN Member Role: Primary Care Nurse Name: Mirna Paul RN Position: [facility] OB RN Member Role: Primary Care Nurse Name: Latonya Rahman RN Position: [facility] Onco RN Member Role: Primary Care Nurse Name: Claudia Presley RN Position: [facility] RN Member Role: Primary Care Nurse Name: Iris Villa RN Position: [facility] Hospital Associate Financial Planner Member Role: Primary Care Nurse Care Team Related Persons Name: JO-ANN ROMANPLC PROGRAMMERINDRA Address: home [address] [place] [address] Name: CONSTRUCTION TECHNICIANGREGG Address: home [address] [place] [address] Name: CARLOS PAZ Address: home [address] [place] [address]
--- OUTSIDE RECORDS SUMMARY | 2023-07-16 14:44 | XMS_ITS | Continuity of Care Document ---
Author Name Unknown Organization [facility] ter Address [address] [place] [address]- Care Team Providers Care Hvac Design Engineer Name Role Phone Maribel Marquez NP Primary Care Physician [place] [facility] [place] Date[place] 12/31/22 - 12/31/[address] [address]- Encounter Diagnosis Suicidal ideation(Final) - 12/31/22 Discharge Disposition: A-D/C Home Attending Physician: Pia [...] 10:33:00 EST, Inhaler, Route to Pharmacy Electronically, NCPDP_[id number], [facility], 163, cm, 11/16/22 9:43:00 EST, Height, 97.3,... Start Date: 11/16/22 Status: Ordered atorvastatin 10 mg oral tablet 1 tablet = 10 mg, By Mouth, Daily at bedtime, # 30 tablet, 0 Refills, Maintenance, 11/16/22 10:33:00 EST, Tablet, [facility], Partial fill upon patient request if the prescription is for a schedule II opioid drug., 163, cm, 11/16/22 9:43:00... Start Date: 11/16/22 Status: Ordered benztropine 1 mg oral tablet 1 mg, 1, tablet, By Mouth, 2 times a day, # 60 tablet, Refills 0, Tot. Refills 0, Maintenance, 11/16/22 10:33:00 EST, Route to Pharmacy Electronically, [facility] [...] 11/16/22 10:34:00 EST, Route to Pharmacy Electronically, [facility], Partial fill upon patient request if the prescription is for a schedule... Start Date: 11/16/22 Status: Ordered traZODone 50 mg oral tablet 150 mg, 3, tablet, By Mouth, Daily at bedtime, # 90 tablet, Refills 0, Tot. Refills 0, Maintenance,11/16/22 10:34:00 EST, Route to Pharmacy Electronically, [facility], Partial fill upon patient request if [...] 1 Oxygen Saturation [94-100 %] 99 % (12/31/22 4:08 PM) Pulse Rate [55-90 bpm] 105 bpm *H* (12/31/22 4:08 PM) Blood Pressure [90-138/55-84 mm Hg] 123/ 100mm Hg (12/31/22 4:08 PM) Respiratory Rate [16-30 br/min] 18 br/mi n (12/31/22 4:08 PM) Temperature [96.8-100.4 DegF] 98.9 DegF (12/31/22 4:08 PM) Mode of Delivery (Oxygen) Room air (12/31/22 4:08 PM) Temperature Route Oral (12/31/22 4:08 PM) Social History Social History Type Response Smoking Status 10 or more cigarette s (1/2 pack or more)/day in last 30 days; Type: Cigarettes; Other: Reports smoking 1/2-1 packs/day, ending on level of stress; Started at age: 25; entered on: 11/18/22 Sex Note * Tarik Batres MD: PERFORM Event Display: Patient Education Leaflets Authored Date: [id number] Grief Reaction ?? [id number] Grief Reaction Grief is the feeling that we all have when we lose someone or something that has been important in our life. Grief is an unavoidable and normal reaction to this loss. It can last from days to years. The amount of time depends on different factors. These include how close the person was to you, the events surrounding the , and how much support you have through the grief process. Symptoms can be both physical and emotional. Physical reactions to grief include:? Loss of appetite or overeating ??? Changes in weight ??? Trouble getting to sleep or staying asleep ??? Hair loss ??? Upset stomach, indigestion, heart burn, belly pain, cramping, diarrhea ??? Sense of trouble breathing ??? Trembling, shakiness Emotional reactions to grief include:? Sadness ??? Anxiety ??? Feeling depressed or helpless ??? Difficulty concentrating ??? Detachment or withdrawal from those around you ??? Loss of interest in your normal life and work Home care Suggestions to care for yourself at home include the following:? Allow yourself to feel the pain of your loss. For some, this can be a smith part of healing grief. Talk about your pain with otherswho understand. Share good memories that involve the person, pet, or possession you lost. ??? Take time for yourself. Make it a point to do things that you enjoy. This might be gardening, listening to music, walking in nature, or going to a movie. ??? Take care of your physical body. Eat a balanceddiet (low in saturated fat and high in fruits and vegetables) and establish an exercise plan at least 3 times a week for 30 minutes. Even mild-moderate exercise such as brisk walking can make you feel better. Get plenty of sleep. ??? Don't use alcohol or drugs to cover your emotional pain. This only slows down the emotional healing process. ??? Don't isolate yourself from others. Have daily contact with family or friends. Talk about your loss to those closest to you. ??? For additional support,meet with your cierra leader, a counselor or therapist, or your own healthcare provider. ??? Consider joining a grief support group. Ask your healthcare provider or our staff for information on how tofind one in your area. ??? If you have been prescribed a medicine to help with your symptoms, take it only as directed. Don't use it with alcohol. Don't take more or less than prescribed. Don't share it with others.. ??? Respect your feelings and your self-care needs. Friends or family members may try to be helpful but give unsolicited advice on how you should feel or what you should do. Sometimes this advice can cause more stress than comfort. Say no thank you to suggestions when you need to do so. ?? Follow-up care Follow up with your healthcare provider, or as advised. ?? Call or text 988 Call or text?? 988 or call 911 if any of these happen: ??? Have suicidal thoughts, a suicide plan, and the means to carry out the plan. When you call or text 988, you will be connected to trained crisis counselors at the Suicide Prevention Lifeline. An online chat option is also available. Lifelineis free and available 07/05. 988 counselors will work closely with 911 to get you the care you need.??? Trouble breathing ??? Very confused ??? Very drowsy or trouble awakening ??? Fainting or loss of consciousness ??? Rapid heart rate ??? Seizure ??? New chest pain that becomes more severe, lasts longer, or spreads into your shoulder, arm, neck, jaw, or back ??? Have serious thoughts of hurting someone else? When to seek medical advice Call your healthcare provider right away if any of these happen: ??? Worsening symptoms ??? Not eating or sleeping for 3 days in a row ??? Feeling extreme depression, fear, anxiety, or anger toward yourself or others ??? Feeling out of control ??? Feeling that you may try to harm yourself ??? Having family or friends express concern over your behavior and ask you to get help ?? Last Reviewed Date: 2022 ?? 9829-1066 [employer]. All rights reserved. This information is not intended as a substitute for professional medical care. Always follow your healthcare professional's instructions. ?? Patient Care team information Care Team Personnel Name: Rudi Ruiz RN Position: [facility] ED RN W/OE and Tasks Member Role: Primary Care Nurse Name: Alicja Riggs RN Position: [facility] RN Member Role: Primary Care Nurse Name: Harmony Pagan Position: [facility] RN Member Role: Primary Care Nurse Name: Ros Fu RN Position: [facility] RN Member Role: Primary Care Nurse Name: Hilda Mccabe RN Position: [facility] RN Member Role: Primary Care Nurse Name: Rosana Kearney RN Position: [facility] SN RN Member Role: Primary Care Nurse Name: Wil Flood RN Position: [facility] RN Member Role: Primary Care Nurse Name: Gagandeep Sheldon RN Position: [facility] RN Member Role: Primary Care Nurse Name: Chip Morton Position: [facility] Outreach Member Role: Lifetime Consulting Physician Name: Alba Daily RN Position: [facility] RN Member Role: Primary Care Nurse Name: Maribel Marquez NP Position: [facility] PCO Associate Professional Member Role: PCP Address: Address: [address] [place] [address]- Name: Jose Ramirez RN Position: [facility] ED RN W/OE and Tasks Member Role: Primary Care Nurse Name: Brittany Butts RN Position: [facility] AMB Nurse Member Role: Primary Care Nurse Name: Pauline Mcadams RN Position: [facility] RN Member Role: Primary Care Nurse Name: Mary Sánchez RN Position: [facility] RN Member Role: Primary Care Nurse Name: Shama Rosado RN Position: [facility] RN Member Role: Primary Care Nurse Name: Jackie Snyder RN Position: [facility] RN Member Role: Primary Care Nurse Name: Jay Burks NP Position: Reference Physician Member Role: Primary Care Nurse Address: Address: [address] [place], [place] [id number] Clinical & [place] [address]- [place] Name: Parvez Kaba MD Position: [facility] Renal MD Member Role: Lifetime Consulting Physician Address: Address: [address] [place] [address] [facility] [place] [address]- Name: Yoana Ledezma RN Position: [facility] RN Member Role: Primary Care Nurse Name: Mirna Paul RN Position: [facility] OB RN Member Role: Primary Care Nurse Name: Latonya Rahman RN Position: [facility] Onco RN Member Role: Primary Care Nurse Name: Viki Gonzalez RN Position: [facility] RN Member Role: Primary Care Nurse Name: Claudia Presley RN Position: [facility] RN Member Role: Primary Care Nurse Name: Iris Villa RN Position: [facility] Hospital Parachute Accessories Attacher Member Role: Primary Care Nurse Name: Justina Milton RN Position: [facility] ED RN W/OE and Tasks Member Role: Patient Care Provider Name: Tarik Batres MD Position: [facility] Resident Member Role: ED Resident Address: Address: [address] [place] [address]- Name: Pia Patten MD Position: [facility] ED Medicine MD Member Role: Admitting Physician Address: Address: [address] [place] [address]- Care Team Related Persons Name: LISBETH- CREAM BEATERINDRA Address: [address] [place] [address] Name: REFUND CLERKGREGG Address: [address] [place] [address] Name: CARLOS PAZ Address: home [address] [place] [address]
--- OUTSIDE RECORDS SUMMARY | 2023-07-16 14:45 | XMS_ITS | Continuity of Care Document ---
Author Name Unknown Organization [facility] ter Address [address] [place] [address]- Care Team Providers Care Canal Boat Operator Name Role Phone Maribel Marquez NP Primary Care Physician Encounter [facility] Date(s): 03/30/23 - 03/30/[address] [address]- Discharge Disposition: A-D/C Home Attending Physician: Mary Beltran MD Admitting Physician: Mary Beltran MD Referring Physician: Not on Staff, Referring [...] 10:33:00 EST, Inhaler, Route to Pharmacy Electronically, NCPDP_[id number], [facility], 163, cm, 11/16/22 9:43:00 EST, Height, 97.3,... Start Date: 11/16/22 Status: Ordered atorvastatin 10 mg oral tablet 1 tablet = 10 mg, By Mouth, Daily at bedtime, # 30 tablet, 0 Refills, Maintenance, 11/16/22 10:33:00 EST, Tablet, [facility], Partial fill upon patient request if [...] 11/16/22 10:33:00 EST, Route to Pharmacy Electronically, [facility], Partial fill upon patientrequest if the [...] 0 Refills, Maintenance, 11/16/22 10:33:00 EST, Tablet, [facility], Partial fill upon patient request if the prescriptionis for a schedule II opioid drug., [id number], ... Start Date: 11/16/22 Status: Ordered [...] 11/16/22 10:34:00 EST, Route to Pharmacy Electronically, [facility], Partial fill upon patient request if the prescription is for a schedule II opioid d... Start Date: 11/16/22 Stop Date: 08/13/23 Status: Ordered FLUoxetine 20 mg oral capsule 80 mg, 4, capsule, By Mouth, Daily in AM, # 120 capsule, Refills 0, Tot. Refills 0, Maintenance, 11/16/22 10:34:00 EST, Route to Pharmacy Electronically, [facility], Partial fill upon patient request if [...] 11/16/22 10:34:00 EST, Route to Pharmacy Electronically, [facility], Partial fill upon patientrequest if the [...] 02/12/23 10:51:00 EDT, Route to Pharmacy Electronically, [facility], Partial fill upon patient requestif the [...] 60 tablet, 1 Refills, Maintenance,02/22/23 10:08:00 EDT, [facility], 146, cm, 02/05/23 20:22:00 EDT, Height, [...] 0 Refills, Maintenance, 11/16/22 10:34:00 EST, Tablet, [facility], Partial fill upon patient request if [...] 0 Refills, Maintenance, 11/16/22 10:34:00 EST, Tablet, [facility], Partial fill upon patient request if [...] 11/16/22 10:34:00 EST, Route to Pharmacy Electronically, [facility], Partial fill upon patient request if the prescription is for a schedule I... Start Date: 11/16/22 Status: Ordered montelukast 10 mg oral tablet Refills 0, Maintenance, 01/06/23 18:05:00 EDT, Partial fill upon patient request if the prescription is for a schedule II opioid drug. Start Date: 01/06/23 Status: Ordered nystatin topical [id number] u/gm cream 1 application, Topically, 2 times a day, # 15 Gm, 0 Refills, Maintenance, 01/05/23 15:04:00 EDT, Cream, [facility], Partial fill upon patient request if the prescription is for a schedule II opioid drug., 1 application Topically 2 times a da... Start Date: 01/05/23 Status: Ordered nystatin topical [id number] u/gm cream 0 Refills, Maintenance, 01/06/23 18:05:00 [...] 11/16/22 10:34:00 EST, Route to Pharmacy Electronically, [facility], Partial fill upon patient request if [...] Maintenance,11/16/22 10:34:00 EST, Route to Pharmacy Electronically, [facility], Partial fill upon patient request if [...] Range]: 1 2 Oxygen Saturation [94-100 %] 95 % (03/30/23 7:41 PM) 97 % (03/30/23 6:32 PM) Pulse Rate [55-90 bpm] 95 bpm *H* (03/30/23 7:41 PM) 99 bpm *H* (03/30/23 6:32 PM) Blood Pressure [90-138/55-84 mm Hg] 138/ 80mm Hg (03/30/23 7:41 PM) 146/104mm Hg *H* (03/30/23 6:32 PM) Respiratory Rate [16-30 br/min] 17 br/mi n (03/30/23 7:41 PM) 18 br/min (03/30/23 6:32 PM) Temperature [96.8-100.4 DegF] 97.9 DegF (03/30/23 7:41 PM) 98.5 DegF (03/30/23 6:32 PM) Mode of Delivery (Oxygen) Room air (03/30/23 7:41 PM) Room air (03/30/23 6:32 PM) Blood pressure sites Arm, right (03/30/23 7:41 PM) Arm, left (03/30/23 6:32 PM) Temperature Route Oral (03/30/23 7:41 PM) Oral (03/30/23 6:32 PM) Social History Social History Type Response Smoking Status 10 or more cigarette s (1/2 pack or more)/day in last 30 days; Type: Cigarettes; Other: Reports smoking 1/2-1 packs/day, ending on level of stress; Started at age: 25; entered on: 11/18/22 Sex Patient Care team information Care Team Personnel Name: Rudi Ruiz RN Position: [facility] ED RN W/OE and Tasks Member Role: Primary Care Nurse Name: Alicja Riggs RN Position: [facility] RN Member Role: Primary Care Nurse Name: Ros Fu RN Position: [facility] RN Member Role: Primary Care Nurse Name: Hilda Mccabe RN Position: [facility] RN Member Role: Primary Care Nurse Name: Rosana Kearney RN Position: [facility] SN RN Member Role: Primary Care Nurse Name: Wil Flood RN Position: [facility] RN Member Role: Primary Care Nurse Name: Gagandeep Sheldon RN Position: [facility] RN Member Role: Primary Care Nurse Name: Chip Morton Position: [facility] Outreach Member Role: Lifetime Consulting Physician Name: Alba Daily RN Position: [facility] RN Member Role: Primary Care Nurse Name: Maribel Marquez NP Position: [facility] PCO Associate Professional Member Role: PCP Address: Address: [address] [place] [address]- Name: Jose Ramirez RN Position: [facility] RN Member Role: Primary Care Nurse Name: Brittany Butts RN Position: [facility] AMB Nurse Member Role: Primary Care Nurse Name: Pauline Mcadams RN Position: [facility] RN Member Role: Primary Care Nurse Name: Mary Sánchez RN Position: [facility] RN Member Role: Primary Care Nurse Name: Shama Rosado RN Position: [facility] RN Member Role: Primary Care Nurse Name: Jackie Snyder RN Position: [facility] RN Member Role: Primary Care Nurse Name: Jay Burks NP Position: Reference Physician Member Role: Primary Care Nurse Address: Address: [address] [place], [place] [id number] Clinical & [place] [address]- [place] Name: Parvez Kaba MD Position: [facility] Renal MD Member Role: Lifetime Consulting Physician Address: Address: [address] [place] [address] [facility] [place] [address]- [place] Name: Mirna Paul RN Position: [facility] OB RN Member Role: Primary Care Nurse Name: Latonya Rahman RN Position: [facility] Onco RN Member Role: Primary Care Nurse Name: Viki Gonzalez RN Position: [facility] RN Member Role: Primary Care Nurse Name: Claudia Presley RN Position: [facility] RN Member Role: Primary Care Nurse Name: Iris Villa RN Position: [facility] Hospital Recovery Assistant Member Role: Primary Care Nurse Name: Yamini Brown Position: [facility] ED TA [facility] Name: Director Yue LE Position: [facility] Resident Member Role: ED Resident Address: Address: [address] [place] [address]- Name: Mary Beltran MD Position: [facility] ED Medicine MD Member Role: Admitting Physician Address: Address: [address] [place] [phone]- Name: Mackenzie Arechiga RN Position: [facility] ED RN W/OE and Tasks Member Role: Patient Care Provider Care Team Related Persons Name: LISBETH- ACCESS REGISTRARINDRA Address: [address] [place] [address] Name: EMERGENCY DOCTORGREGG Address: [address] [place] [address] Name: CARLOS PAZ Address: [address] [place] [address]
--- OUTSIDE RECORDS SUMMARY | 2023-07-16 14:45 | XMS_ITS | Continuity of Care Document ---
Author Name Unknown Organization [facility] Adult Address [address] [place] [address]- Care Team Providers Care Hole Filler Name Role Phone Maribel Marquez NP Primary Care Physician [phone] Encounter [facility] [place](s): 10/05/21 - 11/16/21 [facility] [address] [place] [address]- Attending Physician: Maribel Marquez NP Allergies, Adverse [...] 07/22/20 18:41:00 EDT, Route to Pharmacy Electronically, [facility], 163.5, cm, 07/22/20 18:29:00 EDT, Height, 102.5, kg, 07/18/20 21:04:00 EDT... Start Date: 07/22/20 Status: Ordered ferrous sulfate 325 mg oral enteric coated tablet 325 mg, 1, tablet, By Mouth, Daily, # 90 tablet, Refills 2, Tot. Refills 2, Maintenance, 04/11/21 9:22:00 EDT, Route to Pharmacy Electronically, [facility], Partial fill upon patient request if the prescription is for a schedule II opioid drCheyanne. Start Date: 04/11/21 Stop Date: 01/06/22 Status: Ordered Flovent HFA 110 mcg/inh inhalation aerosol 2 puffs = 220 mcg, Inhalation, 2 times a day, # 3 each, 3 Refills, Maintenance, 05/09/21 8:41:00 EDT, Aerosol, [facility], 165, cm, 04/11/21 7:42:00 EDT, Height, [...] 05/09/21 8:43:00 EDT, Route to Pharmacy Electronically, [facility], 165, cm, 04/11/21 7:42:00 EDT, Height, [...] 04/11/21 9:38:00 EDT, [facility], [facility] each, 1 Refills, Maintenance, 05/09/21 8:43:00 EDT,Tablet, [facility], Partial fill upon patient request if [...] 05/09/21 8:45:00 EDT, Route to Pharmacy Electronically, [facility], 165, cm, 04/11/21 7:42:00 EDT, Height, [...] Start Date: 11/08/21 Status: Ordered nystatin topical 839016 u/gm cream 1 application, Topically, 2 times [...] Gm, 5 Refills, Acute, 05/10/21 11:59:00 EDT, [facility], 15, TAKE 17 GM BY MOUTH [...] 0 Refills, Maintenance, 02/09/20 10:05:00 EDT, Inhaler, [facility], 165, cm, 02/08/20 19:47:00 EDT, Height, 104.5, kg, 02/07/20 8:15:00 EDT, Dry Weight Start Date: 02/09/20 Stop Date: 03/10/20 Status: Ordered verapamil 240 mg/12 hours oral tablet, extended release 1 tablet = 240 mg, By Mouth, Daily at bedtime, # 90 tablet, 1 Refills, Maintenance, 05/09/21 8:45:00 EDT, SR Tablet, [facility], 165, cm, 04/11/21 7:42:00 EDT, Height, [...]
--- OUTSIDE RECORDS SUMMARY | 2023-07-16 14:45 | XMS_ITS | Continuity of Care Document ---
Author Name Unknown Organization [facility] ter Address [address] [place] [address]- Care Team Providers Care Business Analytics Director Name Role Phone Maribel Marquez NP Primary Care Physician [phone] Encounter [facility] [place] Date(s): 05/05/23 - 05/06/[address] [address]- Encounter Diagnosis Nausea(Final) - 05/06/23 Discharge Disposition: A-D/C Home Attending Physician: Braden Trujillo MD Admitting Physician: Braden Trujillo MD Referring Physician: Not on Staff, Referring MD Allergies, Adverse Reactions, Alerts Substance Reaction Severity Status codeine Active lithium 1 Active penicillin Active Macrobid Active Seafood Active predniSONE Active sulfa drugs Active Zithromax Active Geodon Active 1pt reports 01/17/13 started [...] 10:33:00 EST, Inhaler, Route to Pharmacy Electronically, NCPDP_[id number], [facility], 163, cm, 11/16/22 9:43:00 EST, Height, 97.3,... Start Date: 11/16/22 Status: Ordered atorvastatin 10 mg oral tablet 1 tablet = 10 mg, By Mouth, Daily at bedtime, # 30 tablet, 0 Refills, Maintenance, 11/16/22 10:33:00 EST, Tablet, [facility], Partial fill upon patient request if [...] 0 Refills, Maintenance, 11/16/22 10:33:00 EST, Tablet, [facility], Partial fill upon patient request if [...] 11/16/22 10:34:00 EST, Route to Pharmacy Electronically, [facility], Partial fill upon patient request if the prescription is for a schedule II opioid d... Start Date: 11/16/22 Stop Date: 08/13/23 Status: Ordered FLUoxetine 20 mg oral capsule 80 mg, 4, capsule, By Mouth, Daily in AM, # 120 capsule, Refills 0, Tot. Refills 0, Maintenance, 11/16/22 10:34:00 EST, Route to Pharmacy Electronically, [facility], Partial fill upon patient request if [...] 11/16/22 10:34:00 EST, Route to Pharmacy Electronically, [facility], Partial fill upon patientrequest if the [...] 60 tablet, 1 Refills, Maintenance,02/22/23 10:08:00 EDT, [facility], 146, cm, 02/05/23 20:22:00 EDT, Height, 115, [...] 0 Refills, Maintenance, 11/16/22 10:34:00 EST, Tablet, [facility], Partial fill upon patient request if [...] 11/16/22 10:34:00 EST, Route to Pharmacy Electronically, [facility], Partial fill upon patient request if the prescription is for a schedule I... Start Date: 11/16/22 Status: Ordered montelukast 10 mg oral tablet Refills 0, Maintenance, 01/06/23 18:05:00 EDT, Partial fill upon patient request if the prescription is for a schedule II opioid drug. Start Date: 01/06/23 Status: Ordered nystatin topical 708516 u/gm cream 1 application, Topically, 2 times a day, # 15 Gm, 0 Refills, Maintenance, 01/05/23 15:04:00 EDT, Cream, [facility], Partial fill upon patient request if the prescription is for a schedule II opioid drug., 1 application Topically 2 times a da... Start Date: 01/05/23 Status: Ordered nystatin topical 197456 u/gm cream 0 Refills, Maintenance, 01/06/23 18:05:00 [...] 11/16/22 10:34:00 EST, Route to Pharmacy Electronically, [facility], Partial fill upon patient request if [...] Maintenance,11/16/22 10:34:00 EST, Route to Pharmacy Electronically, [facility], Partial fill upon patient request if [...] Exam Date Time Procedure Performing Provider Status 05/05/23 11:58 PM Chest 2 Views Frontal and Lat Areli Renee; Auth (Verified) Notes: (Chest 2 Views Frontal and Lat) Reason For Exam: Shortness of Breath, Fever;Other: RESULT: Chest 2 Views Frontal and Lat Chest 2 Views Frontal and Lat Hx of Present Illness: Pt coming from home with c o CP x 3 days, NV x 2 days; Reason: Other:; Shortness of Breath, Fever; Clinical Question(s): Pneumonia COMPARISON: 02/19/2023 FINDINGS: LINES AND TUBES: None. LUNGS AND PLEURA: Clear lungs. Normal pulmonary vascularity. No pleural effusion. No pneumothorax. HEART, MEDIASTINUM AND HENRY: Heart is normal in size. Normal mediastinal and hilar contour. BONES AND SOFT TISSUES: No acute abnormality. IMPRESSION: No acute abnormality. WSN: [id number] Ordering Physician: Nabil Milian Dictated By: Mauro Childs MD Dictated Date/Time: 05/05/23 11:54 p Reviewed By: Mauro Childs MD Signed By: Mauro Childs MD Signed Date/Time: 05/05/23 11:54 pm Transcribed By: DAVIS Transcribed Date/Time: 05/05/23 11:54 pm Vital Signs Most recent to oldest [Reference Range]: 1 2 Height 164 cm (05/05/23 10:39 PM) 164 cm (05/05/23 10:28 PM) Oxygen Saturation [94-100 %] 96 % (05/06/23 2:20 AM) 97 % (05/05/23 10:28 PM) Pulse Rate [55-90 bpm] 90 bpm (05/06/23 2:20 AM) 110 bpm *H* (05/05/23 10:28 PM) Blood Pressure [90-138/55-84 mm Hg] 109/ 80mm Hg (05/06/23 2:20 AM) 129/81mm Hg (05/05/23 10:28 PM) Respiratory Rate [16-30 br/min] 19 br/mi n (05/06/23 2:20 AM) 14 br/min *L* (05/05/23 10:28 PM) Temperature [96.8-100.4 DegF] 98.2 DegF (05/06/23 2:20 AM) 98.6 DegF (05/05/23 10:28 PM) Mode of Delivery (Oxygen) Room air (05/06/23 2:20 AM) Room air (05/05/23 10:28 PM) Blood pressure sites Arm, left (05/06/23 2:20 AM) Arm, right (05/05/23 10:28 PM) Temperature Route Oral (05/06/23 2:20 AM) Oral (05/05/23 10:28 PM) Dry Weight 99 kg (05/05/23 10:39 PM) 99 kg (05/05/23 10:28 PM) Dry Weight Obtained Via Patient/family s tated (05/05/23 10:28 PM) Social History Social History Type Response Smoking Status 10 or more cigarette s (1/2 pack or more)/day in last 30 days; Type: Cigarettes; Other: Reports smoking 1/2-1 packs/day, ending on level of stress; Started at age: 25; entered on: 11/18/22 Sex EKG study * Event Display: EKG Authored Date: Note * Rukhsana SHIN, Nabil: PERFORM Event Display: Patient Education Leaflets Authored Date: GERD (Adult) ?? [id number] GERD (Adult) The esophagus is a tube that carries food from the mouth to the stomach. A valve (lower esophageal sphincter) prevents stomach acid from flowing upward. Sometimes this valve doesn't work correctly. Then stomach contents may flow (reflux) into the esophagus. When it happens again and again, it's called??GERD (gastroesophageal reflux disease).??GERD can irritate the esophagus. It can cause pain. Itcan also cause problems with swallowing or breathing. In severe cases, GERD can cause pneumonia that keeps coming back. This is from breathing in particles (aspiration). Symptoms of reflux include burning, pressure, or sharp pain in the upper belly (abdomen). Symptoms may also be in the mid- to lower chest. The pain can spread to the neck, back, or shoulder. You may have: ??? Belching ??? Acid taste in the back of the throat ??? Chronic cough ??? Sore throat ??? Hoarseness GERD symptoms often occur during the day after a big meal. They can also occur at night when lying down.?? Home care Lifestyle changes can help ease symptoms. Your healthcare provider may also prescribe medicines.??Symptoms often get better with treatment. But if treatment is stopped, the symptoms often return after a few months. Most people with GERD will need to continue treatment. Or they may need treatment onand off. Lifestyle changes ??? Limit or don't eat fatty, fried, or spicy foods. Also limit coffee, chocolate, mint, and foods with high acid content. These include tomatoes and citrus fruit and juices (orange, grapefruit, and lemon). ??? Don???t eat large meals, especially at night. Frequent, smaller meals are best. Don't lie down right after eating. And don???t eat anything 3 hours before going to bed. ??? Don't drink alcohol or smoke. As much as possible, stay away from secondhand smoke. ??? If you are overweight, losing weight will reduce symptoms.? Don't wear tight clothing around your stomach area. ??? If your symptoms occur during sleep, use a foam wedge to raise your upper body not just your head. Or place 4-inch blocks under the head of your bed. Or use 2 bed risers under your bed frame. ??? Talk with your provider if you have trouble making the suggested lifestyle changes. They may be able to give you resources to help. Medicines Medicines can help ease the symptoms of GERD. They also help prevent damage to the esophagus. Discuss a medicine plan with your healthcare provider. This may include one or more of these medicines: ??? Antacids. These help neutralize the normal acids in your stomach. ??? Acid blockers (histamine or H2 blockers). These decrease how much acid your stomach makes. ??? Acid inhibitors (proton pump inhibitors PPIs). These also decrease how much acid your body makes, but in a different way from the blockers. They may work better. But they can take a little longer to do so. Take an antacid 30 to 60 minutes after eating and at bedtime, but not at the same time as an acid julia. Try not to take medicines such as ibuprofen and aspirin. If you take aspirin for your heart or other health reasons, talk with your healthcare provider about stopping it. ?? Follow-up care Follow up with your healthcare provider as advised. ?? When to seek medical advice Call your healthcare provider if any of the following occur: ??? Stomach pain gets worse or moves to the lower right belly (appendix area) ??? Chest pain appears or gets worse, or spreads to the back, neck, shoulder, or arm ??? An yjuy-fie-yyyyrpc trial of medicine doesn't relieve your symptoms ???Weight loss that can't be explained ??? Trouble or pain swallowing ??? Frequent vomiting (can???t keep down liquids) ??? Blood in the stool or vomit (red or black in color) ??? Feeling weak or dizzy ??? Fever of 100.4??F (38??C) or higher, or as directed by your healthcare provider ??? Symptoms getworse or you have new symptoms ?? Last Reviewed Date: 2021 ?? [id number] The Narrative, [employer]. All rights reserved. This information is not intended as a substitute for professional medical care. Always follow your healthcare professional's instructions. ?? Patient Care team information Care Team Personnel Name: Rudi Ruiz RN Position: [facility] ED RN W/OE and Tasks Member Role: Primary Care Nurse Name: Alicja Riggs RN Position: [facility] RN Member Role: Primary Care Nurse Name: Ros Fu RN Position: [facility] RN Member Role: Primary Care Nurse Name: Hilda Mccabe RN Position: [facility] RN Member Role: Primary Care Nurse Name: Rosana Kearney RN Position: [facility] SN RN Member Role: Primary Care Nurse Name: Wil Flood RN Position: [facility] RN Member Role: Primary Care Nurse Name: Gagandeep Sheldon RN Position: [facility] RN Member Role: Primary Care Nurse Name: Alba Daily RN Position: [facility] RN Member Role: Primary Care Nurse Name: Maribel Marquez NP Position: [facility] PCO Associate Professional Member Role: PCP Address: Address: [address] [place] [address]- Name: Jose Ramirez RN Position: [facility] RN Member Role: Primary Care Nurse Name: Brittany Butts RN Position: [facility] AMB Nurse Member Role: Primary Care Nurse Name: Pauline Mcadams RN Position: [facility] RN Member Role: Primary Care Nurse Name: Mary Sánchez RN Position: [facility] RN Member Role: Primary Care Nurse Name: Shama Rosado RN Position: [facility] RN Member Role: Primary Care Nurse Name: Jackie Snyder RN Position: [facility] RN Member Role: Primary Care Nurse Name: Jay Burks NP Position: Reference Physician Member Role: Primary Care Nurse Address: Address: [address] [place], [place] [id number] [facility] [place] [address]- [place] Name: Parvez Kaba MD Position: [facility] Renal MD Member Role: Lifetime Consulting Physician Address: Address: [address] [place] [address] [facility] [place] [address]- [place] Name: Mirna Paul RN Position: [facility] OB RN Member Role: Primary Care Nurse Name: Lacey CARDOSO, Latonya Talavera Position: [facility] Onco RN Member Role: Primary Care Nurse Name: Viki Gonzalez RN Position: [facility] RN Member Role: Primary Care Nurse Name: Claudia Presley RN Position: [facility] RN Member Role: Primary Care Nurse Name: Iris Villa RN Position: [facility] Hospital Third Helper Member Role: Primary Care Nurse Name: Nabil Milian DO Position: [facility] Resident Member Role: ED Resident Address: Address: [address] [place] [address]- Name: December Dearborn Position: [facility] ED TA [facility] Member Role: Welder Production Line Arc Name: Lenore Baldwin RN Position: [facility] ED RN W/OE and Tasks Member Role: Patient Care Provider Name: Braden Trujillo MD Position: [facility] Resident Member Role: ED Attending Physician Address: Address: [address] [place] [address]- Care Team Related Persons Name: JO-ANN ROMANMERCHANT SEAMANINDRA Address: home [address] [place] [address] Name: PROJECTION ENGINEERGREGG Address: home [address] [place] [address] Name: CARLOS PAZ Address: home [address] [place] [address]
--- OUTSIDE RECORDS SUMMARY | 2023-07-16 14:45 | XMS_ITS | Continuity of Care Document ---
Author Name Unknown Organization [facility] Address [address] [place] [address]- Care Team Providers Care Surgical Aide Name Role Phone Maribel Marquez NP Primary Care Physician [place]counter [facility] [place](s): 10/18/21 - 11/17/21 [facility] [address] [place] [address]- Allergies, Adverse Reactions, Alerts Substance Reaction Severity [...] 07/22/20 18:41:00 EDT, Route to Pharmacy Electronically, [facility], 163.5, cm, 07/22/20 18:29:00 EDT, Height, 102.5, kg, 07/18/20 21:04:00 EDT... Start Date: 07/22/20 Status: Ordered ferrous sulfate 325 mg oral enteric coated tablet 325 mg, 1, tablet, By Mouth, Daily, # 90 tablet, Refills 2, Tot. Refills 2, Maintenance, 04/11/21 9:22:00 EDT, Route to Pharmacy Electronically, [facility], Partial fill upon patient request if the prescription is for a schedule II opioid drRobi.. Start Date: 04/11/21 Stop Date: 01/06/22 Status: Ordered Flovent HFA 110 mcg/inh inhalation aerosol 2 puffs = 220 mcg, Inhalation, 2 times a day, # 3 each, 3 Refills, Maintenance, 05/09/21 8:41:00 EDT, Aerosol, [facility], 165, cm, 04/11/21 7:42:00 EDT, [...] 05/09/21 8:43:00 EDT, Route to Pharmacy Electronically, [facility], 165, cm, 04/11/21 7:42:00 EDT, [...] 04/11/21 9:38:00 EDT, Route to Pharmacy Electronically, [facility], Partial fill upon patient requestif the prescription is for a schedule II opioid kaelaCheyanne. Start Date: 04/11/21 Stop Date: 04/06/22 Status: [...] each, 1 Refills, Maintenance, 05/09/21 8:43:00 EDT,Tablet, [facility], Partial fill upon patient request [...] 05/09/21 8:45:00 EDT, Route to Pharmacy Electronically, [facility], 165, cm, 04/11/21 7:42:00 EDT, [...] Start Date: 11/08/21 Status: Ordered nystatin topical 417559 u/gm cream 1 application, Topically, 2 times [...] Gm, 5 Refills, Acute, 05/10/21 11:59:00 EDT, [facility], 15, TAKE 17 GM BY MOUTH [...] 0 Refills, Maintenance, 02/09/20 10:05:00 EDT, Inhaler, [facility], 165, cm, 02/08/20 19:47:00 EDT, Height, [...]
--- OUTSIDE RECORDS SUMMARY | 2023-07-16 14:45 | XMS_ITS | Continuity of Care Document ---
Author Name Unknown Organization [facility] Address [address] [place] [address]- Care Team Providers Care Economic Geographer Name Role Phone Maribel Marquez NP Primary Care Physician Encounter [facility] Date(s): 08/10/22 - 09/09/22 [facility] [address] [place], [place] [address] Attending Physician: Jessica Kitchen Admitting Physician: AdmJessica [...] tablet, 1 Refills, Maintenance, 07/24/22 15:17:00 EDT, [facility], 165.2, cm, 07/19/22 10:30:00 EDT, [...] a day, # 12 Gm, 1 Refills, [facility], 162, cm, 03/20/22 19:50:00 EDT, [...] 07/21/22 14:07:00 EDT, Route to Pharmacy Electronically, [facility], Partial fill upon patient requestif the prescription is for a schedule II opioid kaela... Start Date: 07/21/22 Stop Date: 04/17/23 Status: Ordered metFORMIN 500 mg oral tablet See Instructions, TAKE 1 EACH BY MOUTH 2 TIMES A DAY, # 60 tablet, 5 Refills, 08/07/22 10:55:00 EDT, [facility], 165.2, cm, 07/19/22 10:30:00 EDT, [...] 01/04/22 11:12:00 EDT, Route to Pharmacy Electronically, [facility], 165, cm, 12/19/21 10:41:00 EST, [...] 01/19/22 10:48:00 EDT, Route to Pharmacy Electronically, [facility], Partial fill upon patient request if the prescription is for a schedule... Start Date: 01/19/22 Status: Ordered ProAir HFA 90 mcg/inh inhalation aerosol 2 puffs, Inhalation, 4 times a day, PRN as needed for wheezing, # 6.7 Gm, 1 Refills, Maintenance, 06/23/22 16:17:00 EDT, Aerosol, [facility], Partial fill upon patient request [...] 07/28/22 7:45:00 EDT, Route to Pharmacy Electronically, [facility], 165.2, cm, 07/19/22 10:30:00 EDT, [...] Refills, Maintenance, 05/09/21 8:45:00 EDT, SR Tablet, [facility], 165, cm, 04/11/21 7:42:00 EDT, [...] Team Personnel Name: Rudi Ruiz RN Position: [facility] ED RN W/OE and Tasks Member Role: Primary Care Nurse Name: lAicja Riggs RN Position: [facility] RN Member Role: Primary Care Nurse Name: Ros Fu RN Position: [facility] RN Member Role: Primary Care Nurse Name: Hilda Mccabe RN Position: [facility] RN Member Role: Primary Care Nurse Name: Rosana Kearney RN Position: [facility] AMB Nurse Member Role: Primary Care Nurse Name: Wil Flood RN Position: [facility] RN Member Role: Primary Care Nurse Name: Gagandeep Sheldon RN Position: [facility] RN Member Role: Primary Care Nurse Name: Chip Morotn Position: [facility] Outreach Member Role: Lifetime Consulting Physician Name: Alba Daily RN Position: [facility] RN Member Role: Primary Care Nurse Name: Maribel Marquez NP Position: [facility] PCO Associate Professional Member Role: PCP Address: Address: [address] [place] [address]- Name: Jose Ramirez RN Position: [facility] RN Member Role: Primary Care Nurse Name: Brittany Butts RN Position: [facility] AMB Nurse Member Role: Primary Care Nurse Name: Mary Sánchez RN Position: [facility] RN Member Role: Primary Care Nurse Name: Shama Rosado RN Position: [facility] RN Member Role: Primary Care Nurse Name: Jackie Snyder RN Position: [facility] RN Member Role: Primary Care Nurse Name: Jay Burks NP Position: Reference Physician Member Role: Primary Care Nurse Address: Address: [address] [place], [place] [id number] Clinical [facility] [place] [address]- [place] Name: Parvez Kaba MD Position: [facility] Renal MD Member Role: Lifetime Consulting Physician Address: Address: [address] [place] [address] [facility] [place] [address]- Name: Yoana Ledezma RN Position: [facility] RN Member Role: Primary Care Nurse Name: Mirna Paul RN Position: [facility] OB RN Member Role: Primary Care Nurse Name: Latonya Rahman RN Position: [facility] Onco RN Member Role: Primary Care Nurse Name: Claudia Presley RN Position: [facility] RN Member Role: Primary Care Nurse Name: Iris Villa RN Position: [facility] Hospital Customer Service Receptionist Member Role: Primary Care Nurse Care Team Related Persons Name: JO-ANN ROMANTAFFY CANDY MAKERINDRA Address: [address] [place] [address] Name: DOLPHIN RESEARCHERGREGG Address: [address] [place] [address] Name: CARLOS PAZ Address: home [address] [place] [address]
--- OUTSIDE RECORDS SUMMARY | 2023-07-16 14:45 | XMS_ITS | Continuity of Care Document ---
Author Name Unknown Organization [facility] Address [address] [place] [address]- Care Team Providers Care Safety Manager Name Role Phone Maribel Marquez NP Primary Care Physician Encounter [facility] Date(s): 03/29/22 - 04/28/22 [facility] [address] [place] [address]- Allergies, Adverse Reactions, Alerts Substance Reaction Severity Status codeine Active penicillin Active sulfa drugs Active lithium 1 Active predniSONE Active Macrobid Active Zithromax Active [...] tablet, 0 Refills, Maintenance, 01/04/22 11:12:00 EDT, [facility], Partial fill upon patient request [...] 04/11/21 9:22:00 EDT, Route to Pharmacy Electronically, [facility], Partial fill upon patient request if the prescription is for a schedule II opioid drCheyanne. Start Date: 04/11/21 Stop Date: 01/06/22 Status: Ordered Flovent HFA 110 mcg/inh inhalation aerosol 2 puffs, Inhalation, 2 times a day, # 12 Gm, 1 Refills, [facility], 162, cm, 03/20/22 19:50:00 EDT, [...] A DAY, # 60 tablet, 5 Refills, [facility],165, cm, 01/19/22 13:55:00 EDT, Height, 103, [...] 01/04/22 11:12:00 EDT, Route to Pharmacy Electronically, [facility], 165, cm, 12/19/21 10:41:00 EST, Height, 103, kg, 11/26/21 8:59:00 EST, DrRobi.. Start Date: 01/04/22 Status: Ordered Nicotine 2 mg gum 1 each = 2 mg, Chew, Every 2 hours, PRN as needed for smoking cessation, for 4 week(s), # 336 each,1 Refills, Acute 05/19/22 14:46:00 EDT, 03/24/22 14:46:00 EDT, Gum, [facility], Partial fill upon patient request [...] 01/19/22 10:48:00 EDT, Route to Pharmacy Electronically, [facility], Partial fill upon patient request [...] Refills, Maintenance, 05/09/21 8:45:00 EDT, SR Tablet, [facility], 165, cm, 04/11/21 7:42:00 EDT, [...]
--- OUTSIDE RECORDS SUMMARY | 2023-07-16 14:45 | XMS_ITS | Continuity of Care Document ---
Author Name Unknown Organization [facility] ter Address [address] [place] [address]- Care Team Providers Care Furniture Mechanic Name Role Phone Maribel Marquez NP Primary Care Physician Encounter [facility] Date(s): 05/26/22 - 05/27/[address] [address]- Encounter Diagnosis PTSD (post-traumatic stress disorder)(Final) - 05/27/22 Discharge Disposition: A-D/C Home Attending Physician: Rolando Amor MD Admitting Physician: Rolando Amor MD Referring Physician: Not on Staff, Referring MD Allergies, Adverse Reactions, Alerts Substance Reaction Severity Status codeine Active penicillin Active lithium 1 Active predniSONE Active sulfa drugs Active Macrobid [...] 0 Refills, Maintenance, 01/04/22 11:12:00 EDT, [facility], Partial fill upon patient request if [...] 9:22:00 EDT, Route to Pharmacy Electronically, [facility], Partial fill upon patient request if the prescription is for a schedule II opioid drCheyanne. Start Date: 04/11/21 Stop Date: 01/06/22 Status: Ordered Flovent HFA 110 mcg/inh inhalation aerosol 2 puffs, Inhalation, 2 times a day, # 12 Gm, 1 Refills, [facility], 162, cm, 03/20/22 19:50:00 EDT, Height, [...] DAY, # 60 tablet, 5 Refills, [facility],165, cm, 01/19/22 13:55:00 EDT, Height, 103, [...] 11:12:00 EDT, Route to Pharmacy Electronically, [facility], 165, cm, 12/19/21 10:41:00 EST, Height, [...] 10:48:00 EDT, Route to Pharmacy Electronically, [facility], Partial fill upon patient request if [...] Maintenance, 05/09/21 8:45:00 EDT, SR Tablet, [facility], 165, cm, 04/11/21 7:42:00 EDT, Height, 102.6, kg, 02/12/21 12:14:00 EDT, Dry Weight Start Date: 05/09/21 Status: Ordered Verapamil SR Tablet 240 mg, SR Tablet, By Mouth, 05/26/22 23:02:00 EDT Start Date: 05/26/22 Stop Date: 05/26/22 Status: Completed Problem List Condition Effective Dates [...] 1 2 3 Oxygen Saturation [94-100 %] 92 % *L* (05/27/22 6:37 AM) 100 % (05/26/22 8:15 PM) Pulse Rate [55-90 bpm] 70 bpm (05/27/22 6:37 AM) 84 bpm (05/26/22 10:41 PM) 88 bpm (05/26/22 8:15 PM) Blood Pressure [90-138/55-84 mm Hg] 126/75mm Hg (05/27/22 6:37 AM) 129/77mm Hg (05/26/22 10:41 PM) 152/100mm Hg *H* (05/26/22 8:15 PM) Respiratory Rate [16-30 br/min] 16 br/min (05/27/22 6:37 AM) 16 br/min (05/26/22 8:15 PM) Temperature [96.8-100.4 DegF] 97.9 DegF (05/27/22 6:37 AM) 99.3 DegF (05/26/22 8:15 PM) Mode of Delivery (Oxygen) Room air (05/27/22 6:37 AM) Room air (05/26/22 8:15 PM) Blood pressure sites Arm, right (05/27/22 6:37 AM) Arm, right (05/26/22 8:15 PM) Temperature Route Oral (05/27/22 6:37 AM) Oral (05/26/22 8:15 PM) Social History Social History Type Response Smoking Status 10 or more cigarette s (1/2 pack or more)/day in last 30 days; Type: Cigarettes; Other: Reports smoking 1/2-1 packs/day, ending on level of stress; Started at age: 25; entered on: 12/31/20 Sex
--- OUTSIDE RECORDS SUMMARY | 2023-07-16 14:45 | XMS_ITS | Continuity of Care Document ---
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 Start Date: 11/16/22 Status: Ordered atorvastatin 10 mg oral tablet 1 tablet = 10 mg, By Mouth, Daily at bedtime, # 30 tablet, 0 Refills, Maintenance, 11/16/22 10:33:00 EST, Tablet, [facility], Partial fill upon patient request if [...] 11/16/22 10:33:00 EST, Route to Pharmacy Electronically, [facility], Partial fill upon patientrequest if the [...] 0 Refills, Maintenance, 11/16/22 10:33:00 EST, Tablet, [facility], Partial fill upon patient request if [...] 11/16/22 10:34:00 EST, Route to Pharmacy Electronically, [facility], Partial fill upon patient request if the prescription is for a schedule II opioid d... Start Date: 11/16/22 Stop Date: 08/13/23 Status: Ordered FLUoxetine 20 mg oral capsule 80 mg, 4, capsule, By Mouth, Daily in AM, # 120 capsule, Refills 0, Tot. Refills 0, Maintenance, 11/16/22 10:34:00 EST, Route to Pharmacy Electronically, [facility], Partial fill upon patient request if [...] 11/16/22 10:34:00 EST, Route to Pharmacy Electronically, [facility], Partial fill upon patientrequest if the [...] 02/12/23 10:51:00 EDT, [facility] [...] 60 tablet, 1 Refills, Maintenance,02/22/23 10:08:00 EDT, [facility], 146, cm, 02/05/23 20:22:00 EDT, Height, [...] 0 Refills, Maintenance, 11/16/22 10:34:00 EST, Tablet, [facility], Partial fill [...] 0 Refills, Maintenance, 11/16/22 10:34:00 EST, Tablet, [facility], Partial fill upon patient request if [...] Start Date: 01/06/23 Status: Ordered nystatin topical [id number] u/gm cream 1 application, Topically, 2 times a day, # 15 Gm, 0 Refills, Maintenance, 01/05/23 15:04:00 EDT, Cream, [facility], Partial fill upon patient request if the prescription is for a schedule II opioid drug., 1 application Topically 2 times a da... Start Date: 01/05/23 Status: Ordered nystatin topical [id number] u/gm cream 0 Refills, Maintenance, 01/06/23 18:05:00 [...] Maintenance,11/16/22 10:34:00 EST, Route to Pharmacy Electronically, [facility], Partial fill upon patient request if [...] 3 Oxygen Saturation [94-100 %] 98 % (04/16/23 11:50 AM) 96 % (04/16/23 9:09 AM) 99 % (04/16/23 6:16 AM) Pulse Rate [55-90 bpm] 83 bpm (04/16/23 11:50 AM) 71 bpm (04/16/23 9:09 AM) 77 bpm (04/16/23 6:16 AM) Blood Pressure [90-138/55-84 mm Hg] 148/94mm Hg *H* (04/16/23 11:50 AM) 131/69mm Hg (04/16/23 9:09 AM) 141/89mm Hg *H* (04/16/23 6:16 AM) Respiratory Rate [16-30 br/min] 18 br/min (04/16/23 11:50 AM) 20 br/min (04/16/23 9:09 AM) 17 br/min (04/16/23 6:16 AM) Temperature [96.8-100.4 DegF] 98.4 DegF (04/16/23 11:50 AM) 97.9 DegF (04/16/23 9:09 AM) 98.7 DegF (04/16/23 6:16 AM) Mode of Delivery (Oxygen) Room air (04/16/23 9:09 AM) Room air (04/16/23 6:16 AM) Room air (04/15/23 9:00 PM) Blood pressure sites Arm, left (04/16/23 11:50 AM) Arm, right (04/16/23 9:09 AM) Arm, left (04/16/23 6:16 AM) Temperature Route Oral (04/16/23 11:50 AM) Oral (04/16/23 9:09 AM) Oral (04/16/23 6:16 AM) Social History Social History Type Response Smoking Status 10 or more cigarette s (1/2 pack or more)/day in last 30 days; Type: Cigarettes; Other: Reports smoking 1/2-1 packs/day, ending on level of stress; Started at age: 25; entered on: 11/18/22 Sex Note * Marie Bobby DO: PERFORM, SIGN, VERIFY Event Display: Patient Education Handout Authored Date: [id number] * Marie Bobby DO: PERFORM Event Display: Patient Education Leaflets Authored Date: [id number] Depression ?? [id number] Depression Depression is a very common mental health problem. It's not just a state of being unhappy or sad. It's a true disease. The cause seems to be linked to a change in chemicals that send signals in the brain. These things increase a person???s risk of depression: ??? A family history of depression, alcoholism, or suicide ??? Chronic illness ??? Chronic pain ???Migraine headaches ??? High emotional stress Depression may be easier to see in others. You may have a hard time seeing it in yourself. It can show in many physical and emotional ways. These include: ??? Loss of appetite ??? Overeating ??? Not being able to sleep ??? Sleeping too much ??? A lot of tiredness not linked to physical activity ??? Restlessness or irritability ??? Slowness of movement or speech ??? Feeling sad or withdrawn ??? Loss of interest in things you once enjoyed ??? Trouble??concentrating, remembering,??or making decisions ??? Thoughts of harming or killing yourself, or thoughts that life is not worth living ??? Low self-esteem The treatment for depression may include both medicine and psychotherapy. Antidepressants can ease symptoms. They can also make it easier for you to do daily tasks. Therapy can offer emotional support. It can also help you understand things that may be causing the depression. Home care ??? Ongoing care and support help people manage this disease. Find a healthcare provider and therapist who meet your needs. Get help when you feel like you may be getting ill. ??? Be kind to yourself. Make it a point to do things that you enjoy. This may be gardening, walking in nature, or going to a movie. Reward yourself for small successes. ??? Take care of your body. Eat a balanced diet. Eat foods low in saturated fat. Eat a lot of fruits and vegetables. Exercise at least 3 times a week for 30 minutes. Even mild to moderate exercise like brisk walking can make you feel better. ??? Take medicine as prescribed. Don't stop your medicine or change the dose unless you talk with your healthcare provider. ??? Once you start medicine, expect your symptoms to get better slowly. Depression will lift over time. It doesn't get better right away. Ask your healthcare provider how long it will take for a medicine to start working. ??? Don't share your medicine. Don???t use someone else's medicine. ??? Tell your healthcare providers all the medicines you take. This includes prescription and [id number]-[id number] medicines. It includes vitamins and herbal supplements. Some supplements caninteract with medicines. They can cause dangerous side effects. Ask your pharmacist about medicine interactions when you have questions. ??? Don't make major decisions until you feel better. This incl udes things such as a job change, a divorce, or a marriage. ??? Don't drink alcohol. It can make depression worse. ??? Talk with your family and??trusted friends??about your feelings and thoughts.??Ask them to help you notice behavior changes early. You can then get help and, if needed, your medicine can be changed. ??? Talk with your healthcare provider if you are not getting better. They may change your medicine or have you try another treatment. ?? Follow-up care Follow up with your healthcare provider as advised. ?? Crisis care Call 988 if you have thoughts of harming yourself or others. When you call or text [phone], you will beconnected to trained crisis counselors. An online chat option is also available. [employer]fluence is free and available 07/05. 988 counselors will work with 911 to help you get the care you need. Call 911 if you: ??? Have trouble breathing ??? Are??very confused ??? Feel very drowsy or have??trouble awakening ??? Faint ??? Have new chest pain that becomes more severe, lasts longer, or spreadsinto your shoulder, arm, neck, jaw, or back ?? When to get medical care Call your healthcare provider right away if any of these happen: ??? Your symptoms get worse ??? You have extreme depression, fear, anxiety, or anger toward yourself or others ??? You feel out of control ??? You feel that you may try to harm yourself or another ??? You hear voices other people don't hear ??? You see things other people don't see ??? You don't sleep or eat for 3 days in a row ??? Friends or family express concern over your behavior and ask you to get help ?? Last Reviewed Date: 2022 ?? [id number] [employer]. All rights reserved. This information is not intended as a substitute for professional medical care. Always follow your healthcare professional's instructions. ?? Patient Care team information Care Team Personnel Name: Rudi Ruiz RN Position: [facility] ED RN W/OE and Tasks Member Role: Primary Care Nurse Name: Alicja Riggs RN Position: [facility] RN Member Role: Primary Care Nurse Name: Ros Fu RN Position: [facility] RN Member Role: Primary Care Nurse Name: Hilda Mccabe RN Position: [facility] RN Member Role: Primary Care Nurse Name: Rosana Kearney RN Position: [facility] SN RN Member Role: Primary Care Nurse Name: Wil Flood RN Position: [facility] RN Member Role: Primary Care Nurse Name: Gagandeep Sheldon RN Position: [facility] RN Member Role: Primary Care Nurse Name: Chip Morton Position: [facility] Outreach Member Role: Lifetime Consulting Physician Name: Alba Daily RN Position: [facility] RN Member Role: Primary Care Nurse Name: Maribel Marquez NP Position: [facility] PCO Associate Professional Member Role: PCP Address: Address: [address] [place] [address]- [place] Name: Jose Ramirez RN Position: [facility] RN Member Role: Primary Care Nurse Name: Brittany Butts RN Position: [facility] AMB Nurse Member Role: Primary Care Nurse Name: Pauline Mcadams RN Position: [facility] RN Member Role: Primary Care Nurse Name: Mary Sánchez RN Position: [facility] RN Member Role: Primary Care Nurse Name: Shama Rosado RN Position: [facility] RN Member Role: Primary Care Nurse Name: Jackie Snyder RN Position: [facility] RN Member Role: Primary Care Nurse Name: Jay Burks NP Position: Reference Physician Member Role: Primary Care Nurse Address: Address: [address] [place] [address] [facility] [place] [address]- [place] Name: Parvez Kaba MD Position: [facility] Renal MD Member Role: Lifetime Consulting Physician Address: Address: [address] [place] [address] [facility] [place] [address]- [place] Name: Mirna Paul RN Position: [facility] OB RN Member Role: Primary Care Nurse Name: Latonya Rahman RN Position: [facility] Onco RN Member Role: Primary Care Nurse Name: Viki Gonzalez RN Position: [facility] RN Member Role: Primary Care Nurse Name: Claudia Presley RN Position: [facility] RN Member Role: Primary Care Nurse Name: Iris Villa RN Position: [facility] Hospital Dumpcart Driver Member Role: Primary Care Nurse [facility] Attending Position: [facility] ED Attendings Patient Name: Marie Bobby DO Position: [facility] Resident Member Role: Admitting Physician Address: Address: [address] [place] [phone]- [place] Name: Nicole Rahman RN Position: [facility] ED RN W/OE and Tasks Member Role: Patient Care Provider Care Team Related Persons Name: JO-ANN ROMANASSEMBLER 1ST SHIFTINDRA Address: home [address] [place] [id number] Name: TIRE BUILDER HEAVY SERVICEGREGG Address: [address] [place] [address] Name: CARLOS PAZ Address: home [address] [place] [address]
--- OUTSIDE RECORDS SUMMARY | 2023-07-16 14:45 | XMS_ITS | Continuity of Care Document ---
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 Start Date: 11/16/22 Status: Ordered atorvastatin 10 mg oral tablet 1 tablet = 10 mg, By Mouth, Daily at bedtime, # 30 tablet, 0 Refills, Maintenance, 11/16/22 10:33:00 EST, Tablet, [facility], Partial fill upon patient request if [...] 0 Refills, Maintenance, 11/16/22 10:33:00 EST, Tablet, [facility], Partial fill upon patient request if [...] 11/16/22 10:34:00 EST, Route to Pharmacy Electronically, [facility], Partial fill upon patient request if the prescription is for a schedule II opioid d... Start Date: 11/16/22 Stop Date: 08/13/23 Status: Ordered FLUoxetine 20 mg oral capsule 80 mg, 4, capsule, By Mouth, Daily in AM, # 120 capsule, Refills 0, Tot. Refills 0, Maintenance, 11/16/22 10:34:00 EST, Route to Pharmacy Electronically, [facility], Partial fill upon patient request if [...] 11/16/22 10:34:00 EST, Route to Pharmacy Electronically, [facility], Partial fill upon patientrequest if the [...] 60 tablet, 1 Refills, Maintenance,02/22/23 10:08:00 EDT, [facility], 146, cm, 02/05/23 20:22:00 EDT, Height, [...] 0 Refills, Maintenance, 11/16/22 10:34:00 EST, Tablet, [facility], Partial fill upon patient request if [...] Start Date: 01/06/23 Status: Ordered nystatin topical [id number] u/gm cream 1 application, Topically, 2 times a day, # 15 Gm, 0 Refills, Maintenance, 01/05/23 15:04:00 EDT, Cream, [facility], Partial fill upon patient request if the prescription is for a schedule II opioid drug., 1 application Topically 2 times a da... Start Date: 01/05/23 Status: Ordered nystatin topical [id number] u/gm cream 0 Refills, Maintenance, 01/06/23 18:05:00 [...] Maintenance,11/16/22 10:34:00 EST, Route to Pharmacy Electronically, [facility], Partial fill upon patient request if [...] Exam Date Time Procedure Performing Provider Status 04/08/23 10:[address] Thoracic Spine W/ Contrast Valdemar Morgan; Ralph (Verified) Notes: (CT Thoracic Spine W/ Contrast) Reason For Exam: Spine fracture, thoracic, traumatic;Other: RESULT: CT Thoracic Spine W/ Contrast CT Chest W/ Contrast, CT Abd/Pelvis W/ IV Contrast Only, CT Thoracic Spine W/ Contrast INDICATION: mechanical fall with + LOC while smoking .; Reason: Other:; Chest trauma, blunt; Clinical Question(s): Other:; Aortic hilar injury TECHNIQUE: Helical CT scan of the chest, abdomen, and pelvis with IV contrast, formatted in 3 planes. The original dataset was reconstructed with a small field of view around the thoracic spine utilizing soft tissue and bone algorithm reconstructions in 3 planes. 100 cc of Omnipaque 300 was administered intravenously. This study was performed without oral contrast. Weight-based protocol was performed using automatic exposure control. CTDIvol Body: 16.10 mGy, DLP Body: 1163 mGy*cm. COMPARISON: CT 04/07/2023 FINDINGS: Agricultural Economics Teacher view findings, lines and tubes: None. Trachea and airways: Patent without evidence of tracheal or endobronchial lesion. Lungs and pleura: No airspace or interstitial opacities. 2 mm nodule in the left upper lobe (axial 22). 1 mm nodule in the middle lobe (axial 43). Small layering bilateral pleural effusions, unchanged. No pneumothorax. Mediastinum and sharmaine: No mass or hematoma. No mediastinal or hilar lymphadenopathy. No esophageal abnormality. Normal thyroid. Heart: Heart is normal in size. Trace pericardial fluid without mame effusion. Aorta: No aortic aneurysm. Pulmonary arteries: Normal caliber. No evidence of pulmonary embolism on this study performed without angiographic technique. Chest wall soft tissues: No acute abnormality. Diaphragm: Intact. Liver: Normal in attenuation and morphology. No suspicious lesion. Gallbladder: No CT evidence of gallbladder pathology. Bile ducts: No biliary ductal dilation. Spleen: Normal. Pancreas: No suspicious lesion or ductal dilatation. Adrenal glands: No nodule. Kidneys and ureters: No hydronephrosis, stone, or suspicious lesion. Bladder: Normal. Reproductive organs: Unchanged fat-containing mass in the right adnexa consistent with dermoid. Stomach, small bowel, and large bowel: The stomach is normal. The small and large bowel are normal in caliber without evidence of obstruction. Appendix: Normal. Peritoneum and retroperitoneum: No ascites or pneumoperitoneum. No omental or mesenteric lesions. Lymph nodes: No enlarged lymph nodes. Blood vessels: No vascular calcifications or aneurysm. No evidence of venous thrombosis. Abdominal and pelvic wall soft tissues: Small fat-containing umbilical hernia. Bones: No acute abnormality. Chronic right rib fractures. IMPRESSION: No acute abnormality in the chest, abdomen or pelvis. No traumatic injury to the cervical spine. Small bilateral pleural effusions, unchanged. Unchanged right ovarian dermoid. I have personally reviewed the images and I agree with this report. WSN: [id number] Ordering Physician: Chandu Kamara Dictated By: Dennis Cuevas MD Dictated Date/Time: 04/08/23 10:39 p Reviewed By: Rk Rocha MD Signed By: Rk Rocha MD Signed Date/Time: 04/08/23 10:44 pm Transcribed By: DAVIS Transcribed Date/Time: 04/08/23 10:33 pm * Exam Date Time Procedure Performing Provider Status 04/08/23 10:[address] Abd/Pelvis W/ IV Contrast Only LaRochelle, Valdemar J; Auth (Verified) Notes: (CT Abd/Pelvis W/ IV Contrast Only) Reason For Exam: Abd trauma, blunt;Other: RESULT: CT Abd/Pelvis W/ IV Contrast Only CT Chest W/ Contrast, CT Abd/Pelvis W/ IV Contrast Only, CT Thoracic Spine W/ Contrast INDICATION: mechanical fall with + LOC while smoking .; Reason: Other:; Chest trauma, blunt; Clinical Question(s): Other:; Aortic hilar injury TECHNIQUE: Helical CT scan of the chest, abdomen, and pelvis with IV contrast, formatted in 3 planes. The original dataset was reconstructed with a small field of view around the thoracic spine utilizing soft tissue and bone algorithm reconstructions in 3 planes. 100 cc of Omnipaque 300 was administered intravenously. This study was performed without oral contrast. Weight-based protocol was performed using automatic exposure control. CTDIvol Body: 16.10 mGy, DLP Body: 1163 mGy*cm. COMPARISON: CT 04/07/2023 FINDINGS: Agricultural Economics Teacher view findings, lines and tubes: None. Trachea and airways: Patent without evidence of tracheal or endobronchial lesion. Lungs and pleura: No airspace or interstitial opacities. 2 mm nodule in the left upper lobe (axial 22). 1 mm nodule in the middle lobe (axial 43). Small layering bilateral pleural effusions, unchanged. No pneumothorax. Mediastinum and sharmaine: No mass or hematoma. No mediastinal or hilar lymphadenopathy. No esophageal abnormality. Normal thyroid. Heart: Heart is normal in size. Trace pericardial fluid without mame effusion. Aorta: No aortic aneurysm. Pulmonary arteries: Normal caliber. No evidence of pulmonary embolism on this study performed without angiographic technique. Chest wall soft tissues: No acute abnormality. Diaphragm: Intact. Liver: Normal in attenuation and morphology. No suspicious lesion. Gallbladder: No CT evidence of gallbladder pathology. Bile ducts: No biliary ductal dilation. Spleen: Normal. Pancreas: No suspicious lesion or ductal dilatation. Adrenal glands: No nodule. Kidneys and ureters: No hydronephrosis, stone, or suspicious lesion. Bladder: Normal. Reproductive organs: Unchanged fat-containing mass in the right adnexa consistent with dermoid. Stomach, small bowel, and large bowel: The stomach is normal. The small and large bowel are normal in caliber without evidence of obstruction. Appendix: Normal. Peritoneum and retroperitoneum: No ascites or pneumoperitoneum. No omental or mesenteric lesions. Lymph nodes: No enlarged lymph nodes. Blood vessels: No vascular calcifications or aneurysm. No evidence of venous thrombosis. Abdominal and pelvic wall soft tissues: Small fat-containing umbilical hernia. Bones: No acute abnormality. Chronic right rib fractures. IMPRESSION: No acute abnormality in the chest, abdomen or pelvis. No traumatic injury to the cervical spine. Small bilateral pleural effusions, unchanged. Unchanged right ovarian dermoid. I have personally reviewed the images and I agree with this report. WSN: [id number] Ordering Physician: Chandu Kamara Dictated By: Dennis Cuevas MD Dictated Date/Time: 04/08/23 10:39 p Reviewed By: Rk Rocha MD Signed By: Rk Rocha MD Signed Date/Time: 04/08/23 10:44 pm Transcribed By: DAVIS Transcribed Date/Time: 04/08/23 10:33 pm * Exam Date Time Procedure Performing Provider Status 04/08/23 10:[address] Chest W/ Contrast Nirmal Bolanos; Auth (Verified) Notes: (CT Chest W/ Contrast) Reason For Exam: Chest trauma, blunt;Other: RESULT: CT Chest W/ Contrast CT Chest W/ Contrast, CT Abd/Pelvis W/ IV Contrast Only, CT Thoracic Spine W/ Contrast INDICATION: mechanical fall with + LOC while smoking .; Reason: Other:; Chest trauma, blunt; Clinical Question(s): Other:; Aortic hilar injury TECHNIQUE: Helical CT scan of the chest, abdomen, and pelvis with IV contrast, formatted in 3 planes. The original dataset was reconstructed with a small field of view around the thoracic spine utilizing soft tissue and bone algorithm reconstructions in 3 planes. 100 cc of Omnipaque 300 was administered intravenously. This study was performed without oral contrast. Weight-based protocol was performed using automatic exposure control. CTDIvol Body: 16.10 mGy, DLP Body: 1163 mGy*cm. COMPARISON: CT 04/07/2023 FINDINGS: Agricultural Economics Teacher view findings, lines and tubes: None. Trachea and airways: Patent without evidence of tracheal or endobronchial lesion. Lungs and pleura: No airspace or interstitial opacities. 2 mm nodule in the left upper lobe (axial 22). 1 mm nodule in the middle lobe (axial 43). Small layering bilateral pleural effusions, unchanged. No pneumothorax. Mediastinum and sharmaine: No mass or hematoma. No mediastinal or hilar lymphadenopathy. No esophageal abnormality. Normal thyroid. Heart: Heart is normal in size. Trace pericardial fluid without mame effusion. Aorta: No aortic aneurysm. Pulmonary arteries: Normal caliber. No evidence of pulmonary embolism on this study performed without angiographic technique. Chest wall soft tissues: No acute abnormality. Diaphragm: Intact. Liver: Normal in attenuation and morphology. No suspicious lesion. Gallbladder: No CT evidence of gallbladder pathology. Bile ducts: No biliary ductal dilation. Spleen: Normal. Pancreas: No suspicious lesion or ductal dilatation. Adrenal glands: No nodule. Kidneys and ureters: No hydronephrosis, stone, or suspicious lesion. Bladder: Normal. Reproductive organs: Unchanged fat-containing mass in the right adnexa consistent with dermoid. Stomach, small bowel, and large bowel: The stomach is normal. The small and large bowel are normal in caliber without evidence of obstruction. Appendix: Normal. Peritoneum and retroperitoneum: No ascites or pneumoperitoneum. No omental or mesenteric lesions. Lymph nodes: No enlarged lymph nodes. Blood vessels: No vascular calcifications or aneurysm. No evidence of venous thrombosis. Abdominal and pelvic wall soft tissues: Small fat-containing umbilical hernia. Bones: No acute abnormality. Chronic right rib fractures. IMPRESSION: No acute abnormality in the chest, abdomen or pelvis. No traumatic injury to the cervical spine. Small bilateral pleural effusions, unchanged. Unchanged right ovarian dermoid. I have personally reviewed the images and I agree with this report. WSN: [id number] Ordering Physician: Chandu Kamara Dictated By: Dennis Cuevas MD Dictated Date/Time: 04/08/23 10:39 p Reviewed By: Rk Rocha MD Signed By: Rk Rocha MD Signed Date/Time: 04/08/23 10:44 pm Transcribed By: DAVIS Transcribed Date/Time: 04/08/23 10:33 pm * Exam Date Time Procedure Performing Provider Status 04/08/23 10:[address] Cervical Spine W/O Contrast Valdemar Salazar; Ralph (Verified) Notes: (CT Cervical Spine W/O Contrast) Reason For Exam: Neck trauma, dangerous injury mechanism;Other: RESULT: CT Cervical Spine W/O Contrast CT Head/Brain W/O Contrast, CT Cervical Spine W/O Contrast INDICATION: Hx of Present Illness: Pt reports having a mechanical fall with + LOC while smoking .; Reason: Other:; Head trauma, mod-severe; Clinical Question(s): Hematoma TECHNIQUE: Noncontrast head CT using axial technique was reconstructed in axial and coronal planes.Noncontrast spiral CT through the cervical spine was formatted in 3 planes. Automatic tube modulation was used for the cervical spine and iterative dose reconstruction was used for both the head and cervical spine to optimize scan parameters and image quality. CTDIvol Body: 24.70 mGy, DLP Body: 580 mGy*cm. CTDIvol Head: 47.10 mGy, DLP Head: 773 mGy*cm. COMPARISON: 01/25/2023 FINDINGS: Agricultural Economics Teacher View Findings, Lines and Tubes: None. BRAIN AND EXTRA-AXIAL SPACES: No parenchymal hemorrhage, midline shift, or mass effect. Noland-white matter differentiation is wellpreserved. No acute infarct. Ventricles, sulci, and basilar cisterns are normal. No white matter lesions. No subarachnoid hemorrhage. No subdural or epidural collection. CALVARIUM, SKULL BASE, AND SOFT TISSUES: No fractures or suspicious bony lesions. Partial opacification of bilateral ethmoid air cells partial opacification of the right sphenoid sinus tiny air-fluid level within the left sphenoid sinus. Visualized orbits and globes are intact. The extracranial soft tissues are unremarkable. CERVICAL SPINE: No fracture. No acute osseous abnormalities. Normal alignment. No locked or perched facet. Intervertebral disc spaces and vertebral body heightsare preserved. OTHER BONES: No acute abnormality. CERVICAL SOFT TISSUES AND LUNG APICES: Normal soft tissues. Visualized lung apices are clear. IMPRESSION: No acute intracranial abnormality. No cervical spine fracture or subluxation. WSN: [id number] Ordering Physician: Chandu Kamara Dictated By: Rima Hollis MD Dictated Date/Time: 04/08/23 10:24 p Reviewed By: Rima Hollis MD Signed By: Rima Hollis MD Signed Date/Time: 04/08/23 10:24 pm Transcribed By: DAVIS Transcribed Date/Time: 04/08/23 10:17 pm * Exam Date Time Procedure Performing Provider Status 04/08/23 10:[address] Head/Brain W/O Contrast Valdemar Bolanos; Auth (Verified) Notes: (CT Head/Brain W/O Contrast) Reason For Exam: Head trauma, mod-severe;Other: RESULT: CT Head/Brain W/O Contrast CT Head/Brain W/O Contrast, CT Cervical Spine W/O Contrast INDICATION: Hx of Present Illness: Pt reports having a mechanical fall with + LOC while smoking .; Reason: Other:; Head trauma, mod-severe; Clinical Question(s): Hematoma TECHNIQUE: Noncontrast head CT using axial technique was reconstructed in axial and coronal planes.Noncontrast spiral CT through the cervical spine was formatted in 3 planes. Automatic tube modulation was used for the cervical spine and iterative dose reconstruction was used for both the head and cervical spine to optimize scan parameters and image quality. CTDIvol Body: 24.70 mGy, DLP Body: 580 mGy*cm. CTDIvol Head: 47.10 mGy, DLP Head: 773 mGy*cm. COMPARISON: 01/25/2023 FINDINGS: Agricultural Economics Teacher View Findings, Lines and Tubes: None. BRAIN AND EXTRA-AXIAL SPACES: No parenchymal hemorrhage, midline shift, or mass effect. Noland-white matter differentiation is wellpreserved. No acute infarct. Ventricles, sulci, and basilar cisterns are normal. No white matter lesions. No subarachnoid hemorrhage. No subdural or epidural collection. CALVARIUM, SKULL BASE, AND SOFT TISSUES: No fractures or suspicious bony lesions. Partial opacification of bilateral ethmoid air cells partial opacification of the right sphenoid sinus tiny air-fluid level within the left sphenoid sinus. Visualized orbits and globes are intact. The extracranial soft tissues are unremarkable. CERVICAL SPINE: No fracture. No acute osseous abnormalities. Normal alignment. No locked or perched facet. Intervertebral disc spaces and vertebral body heightsare preserved. OTHER BONES: No acute abnormality. CERVICAL SOFT TISSUES AND LUNG APICES: Normal soft tissues. Visualized lung apices are clear. IMPRESSION: No acute intracranial abnormality. No cervical spine fracture or subluxation. WSN: [id number] Ordering Physician: Chandu Kamara Dictated By: Rima Hollis MD Dictated Date/Time: 04/08/23 10:24 p Reviewed By: Rima Hollis MD Signed By: Rima Hollis MD Signed Date/Time: 04/08/23 10:24 pm Transcribed By: DAVIS Transcribed Date/Time: 04/08/23 10:17 pm Vital Signs Most recent to oldest [Reference Range]: 1 2 Oxygen Saturation [94-100 %] 95 % (04/08/23 11:38 PM) 96 % (04/08/23 8:55 PM) Pulse Rate [55-90 bpm] 85 bpm (04/08/23 11:38 PM) 97 bpm *H* (04/08/23 8:55 PM) Blood Pressure [90-138/55-84 mm Hg] 152/ 88mm Hg *H* (04/08/23 11:38 PM) 148/87mm Hg *H* (04/08/23 8:55 PM) Respiratory Rate [16-30 br/min] 18 br/mi n (04/08/23 11:38 PM) 18 br/min (04/08/23 8:55 PM) Temperature [96.8-100.4 DegF] 98.4 DegF (04/08/23 11:38 PM) 98.3 DegF (04/08/23 8:55 PM) Mode of Delivery (Oxygen) Room air (04/08/23 11:38 PM) Room air (04/08/23 8:55 PM) Blood pressure sites Arm, left (04/08/23 11:38 PM) Arm, left (04/08/23 8:55 PM) Temperature Route Oral (04/08/23 11:38 PM) Oral (04/08/23 8:55 PM) Social History Social History Type Response Smoking Status 10 or more cigarette s (1/2 pack or more)/day in last 30 days; Type: Cigarettes; Other: Reports smoking 1/2-1 packs/day, ending on level of stress; Started at age: 25; entered on: 11/18/22 Sex Note * Chandu Kamara DO R: PERFORM Event Display: Patient Education Leaflets Authored Date: [id number] Fall??Prevention ?? [id number] Fall??Prevention Falls often take place due to slipping, tripping, or losing your balance. Millions of people fall every year and injure themselves.??Among older adults in the [place] falls are the most common cause oftraumatic brain injuries. Every 20 minutes, an older adult dies from a fall. Here are ways to reduce your risk of falling again: ??? Think about your fall. Was there anything that caused your fall that can be fixed, removed, or replaced? Make your home safe by keeping walkways clear of objects you may trip over, such as electrical cords. ??? Use nonslip pads under rugs. Don't use area rugs orsmall throw rugs. ??? Use nonslip mats in bathtubs and showers. ??? Hang grab rails by the toilet and inside and outside the shower. ??? Install handrails and lights on staircases. The handrails should be on both sides of the stairs. ??? Use night lights. ??? Don't walk in poorly lit areas. ??? Don't stand on chairs or wobbly ladders. ??? Use care when reaching overhead or looking up.??This position can cause a loss of balance. ??? Be sure your shoes fit well, are in good condition, and have non slip bottoms.? Wear shoes both inside and outside of your home. Don't go barefoot or wear slippers. ??? Be cautious when going up and down stairs, curbs, and when walking on uneven sidewalks. ??? If your balance is poor, consider using a cane or walker. Talk with your healthcare provider abouthaving a balance assessment. ??? If your fall was related to alcohol use, stop or limit alcohol intake.??Ask your provider for help if you think you may overuse alcohol and can't stop. ??? If your fall was related to use of sleeping medicines, talk with your provider about this.??You may need to reduce your dosage at bedtime if you wake up during the night to go to the bathroom.? To reducethe need for nighttime bathroom trips: o Don't drink fluids for several hours before going to bed oEmpty your bladder before going to bed o Men can keep a urinal at the bedside ??? Stay as active asyou can. Balance, flexibility, strength, and endurance all come from exercise. They all play a rolein preventing falls. Ask your provider which types of activity are right for you. Try to do some type of exercise every day. ??? Get your eyes checked once a year or more often if your vision changes??? If you have pets, know where they are before you stand up or walk so you don't trip over them. ??? Go over all your medicines with a pharmacist or other provider. This is to see if any of them could make you more likely to fall. Have this type of medicine review at least once every year. ??? Ifyour provider advises a new medicine, ask if the side effects will affect your balance. ??? Don't move quickly from one position to another. For instance, don't stand up fast from sitting. This can cause dizziness and may lead to a fall. ??? Sit down when putting on pants, socks, and shoes. This will make you less likely to lose your balance and fall. ??? Always let your provider know if you havefallen since your last visit. ??? Contact your provider right away if you're having balance problems or falling more often. Last Reviewed Date: 2021 ?? [id number] The [employer]. All rights reserved. This information is not intended as a substitute for professional medical care. Always follow your healthcare professional's instructions. ?? Patient Care team information Care Team Personnel Name: Rudi Ruiz RN Position: [facility] ED RN W/OE and Tasks Member Role: Primary Care Nurse Name: Alicja Riggs RN Position: [facility] RN Member Role: Primary Care Nurse Name: Ros Fu RN Position: [facility] RN Member Role: Primary Care Nurse Name: Hilda Mccabe RN Position: [facility] RN Member Role: Primary Care Nurse Name: Rosana Kearney RN Position: [facility] SN RN Member Role: Primary Care Nurse Name: Wil Flood RN Position: [facility] RN Member Role: Primary Care Nurse Name: Gagandeep Sheldon RN Position: [facility] RN Member Role: Primary Care Nurse Name: Chip Morton Position: [facility] Outreach Member Role: Lifetime Consulting Physician Name: Alba Daily RN Position: [facility] RN Member Role: Primary Care Nurse Name: Maribel Marquez NP Position: [facility] PCO Associate Professional Member Role: PCP Address: Address: [address] [place] [address] [place] [address]- [place] Name: Jose Ramirez RN Position: [facility] RN Member Role: Primary Care Nurse Name: Brittany Butts RN Position: [facility] AMB Nurse Member Role: Primary Care Nurse Name: Pauline Mcadams RN Position: [facility] RN Member Role: Primary Care Nurse Name: Mary Sánchez RN Position: [facility] RN Member Role: Primary Care Nurse Name: Shama Rosado RN Position: [facility] RN Member Role: Primary Care Nurse Name: Jackie Snyder RN Position: [facility] RN Member Role: Primary Care Nurse Name: Kimmie SENIOR MICROSTRATEGY DEVELOPERJay Position: Reference Physician Member Role: Primary Care Nurse Address: Address: [address] [place] [address] [facility] [place] [address]- [place] Name: Parvez Kaba MD Position: [facility] Renal MD Member Role: Lifetime Consulting Physician Address: Address: [address] [place] [address] [facility] [place] [address]- [place] Name: Mirna Paul RN Position: [facility] OB RN Member Role: Primary Care Nurse Name: Latonya Rahman RN Position: [facility] Onco RN Member Role: Primary Care Nurse Name: Viki Gonzalez RN Position: [facility] RN Member Role: Primary Care Nurse Name: Claudia Presley RN Position: [facility] RN Member Role: Primary Care Nurse Name: Iris Villa RN Position: [facility] Hospital Airplane Gas Tank Liner Assembler Member Role: Primary Care Nurse Name: Tiffanie Camacho MD Position: [facility] ED Medicine MD Member Role: Admitting Physician Address: Address: [address] [place] [address]- [place] Name: Anali Hathaway Position: [facility] ED TA [facility] Member Role: Cement Finishing Supervisor Name: Henrietta Rizvi RN Position: [facility] ED RN W/OE and Tasks Member Role: Patient Care Provider Name: Chandu Kamara DO Position: [facility] Resident Member Role: ED Resident Address: Address: [address] [place] [address] [place] [address]- [place] Care Team Related Persons Name: JO-ANN ROMANPRIVATE BANKERINDRA Address: home [address] [place] [address] Name: CAN RUNNERGREGG Address: home [address] [place] [address] Name: CARLOS PAZ Address: home [address] [place] [address]
--- OUTSIDE RECORDS SUMMARY | 2023-07-16 14:45 | XMS_ITS | Continuity of Care Document ---
Author Name Unknown Organization [facility] ter Address [address] [place] [address]- Care Team Providers Care Antique Jewelry Repairer Name Role Phone Maribel Marquez NP Primary Care Physician Encounter [facility] [place] Date(s): 08/10/22 - 08/11/[address] [address]- Encounter Diagnosis Suicidal ideation(Final) - 08/10/22 Discharge Disposition: A-D/C Home Attending Physician: Raysa [...] tablet, 1 Refills, Maintenance, 07/24/22 15:17:00 EDT, [facility], 165.2, cm, 07/19/22 10:30:00 EDT, Height, [...] 04/11/21 9:22:00 EDT, Route to Pharmacy Electronically, [facility], Partial fill upon patient request if the prescription is for a schedule II opioid dr... Start Date: 04/11/21 Stop Date: 01/06/22 Status: Ordered Flovent HFA 110 mcg/inh inhalation aerosol 2 puffs, Inhalation, 2 times a day, # 12 Gm, 1 Refills, [facility], 162, cm, 03/20/22 19:50:00 EDT, [...] 07/21/22 14:07:00 EDT, Route to Pharmacy Electronically, [facility], Partial fill upon patient requestif the prescription is for a schedule II opioid kaela... Start Date: 07/21/22 Stop Date: 04/17/23 Status: Ordered metFORMIN 500 mg oral tablet See Instructions, TAKE 1 EACH BY MOUTH 2 TIMES A DAY, # 60 tablet, 5 Refills, 08/07/22 10:55:00 EDT, [facility], 165.2, cm, 07/19/22 10:30:00 EDT, Height, [...] 01/04/22 11:12:00 EDT, Route to Pharmacy Electronically, [facility], 165, cm, 12/19/21 10:41:00 EST, Height, 103, kg, 11/26/21 8:59:00 EST, Start Date: 01/04/22 Status: Ordered Nicoderm C-Q Clear 21 mg/24 hr transdermal film, extended release 1 patch, Topically, Daily, for 6 week(s), # 42 patch, 0 Refills, Acute 08/30/22 11:56:00 EST, 07/19/22 11:56:00 EDT, Patch, [facility], Partial fill upon patient request [...] 01/19/22 10:48:00 EDT, Route to Pharmacy Electronically, [facility], Partial fill upon patient request if the prescription is for a schedule... Start Date: 01/19/22 Status: Ordered ProAir HFA 90 mcg/inh inhalation aerosol 2 puffs, Inhalation, 4 times a day, PRN as needed for wheezing, # 6.7 Gm, 1 Refills, Maintenance, 06/23/22 16:17:00 EDT, Aerosol, [facility], Partial fill upon patient request [...] 07/28/22 7:45:00 EDT, Route to Pharmacy Electronically, [facility], 165.2, cm, 07/19/22 10:30:00 EDT, Height, 96, [...] Refills, Maintenance, 05/09/21 8:45:00 EDT, SR Tablet, [facility], 165, cm, 04/11/21 7:42:00 EDT, [...] Range]: 1 2 3 Height 165 cm (08/10/22 6:39 PM) Weight 95 kg (08/10/22 6:39 PM) Oxygen Saturation [94-100 %] 97 % (08/11/22 10:15 AM) 96 % (08/11/22 8:00 AM) 97 % (08/10/22 6:47 PM) Pulse Rate [55-90 bpm] 75 bpm (08/11/22 10:15 AM) 73 bpm (08/11/22 8:00 AM) 88 bpm (08/10/22 6:47 PM) Blood Pressure [90-138/55-84 mm Hg] 127/80mm Hg (08/11/22 10:15 AM) 135/77mm Hg (08/11/22 8:00 AM) 121/74mm Hg (08/10/22 6:47 PM) Respiratory Rate [16-30 br/min] 18 br/min (08/11/22 10:15 AM) 18 br/min (08/11/22 8:00 AM) 18 br/min (08/10/22 6:47 PM) Temperature [96.8-100.4 DegF] 97.7 DegF (08/11/22 8:00 AM) 98.0 DegF (08/10/22 6:47 PM) Mode of Delivery (Oxygen) Room air (08/11/22 10:15 AM) Room air (08/11/22 8:00 AM) Room air (08/10/22 6:47 PM) Temperature Route Oral (08/11/22 8:00 AM) Oral (08/10/22 6:47 PM) Dry Weight 95 kg (10/27/22 6:39 PM) Social History Social History Type Response Smoking Status 10 or more cigarette s (1/2 pack or more)/day in last 30 days; Other: 1PPD; entered on: 07/19/22 Sex Patient Care team information Personnel Name: Maribel Marquez NP Address: Address: [address] [place] [id number]
--- OUTSIDE RECORDS SUMMARY | 2023-07-16 14:45 | XMS_ITS | Continuity of Care Document ---
Author Name Unknown Organization [facility] ter Address [address] [place] [address]- Care Team Providers Care Supervisor Prepress Name Role Phone Maribel Marquez NP Primary Care Physician Encounter [facility] Date(s): 10/06/22 - 10/07/[address] [address]- Encounter Diagnosis Schizoaffective disorder(Final) - 10/06/22 Discharge Disposition: Transfer to Psych Facility Attending Physician: Dick Arias MD Admitting Physician: Dick Arias MD Referring Physician: Not on Staff, Referring [...] tablet, 1 Refills, Maintenance, 07/24/22 15:17:00 EDT, [facility], 165.2, cm, 07/19/22 10:30:00 EDT, Height, [...] 04/11/21 9:22:00 EDT, Route to Pharmacy Electronically, [facility], Partial fill upon patient request if the prescription is for a schedule II opioid drCheyanne. Start Date: 04/11/21 Stop Date: 01/06/22 Status: Ordered Flovent HFA 110 mcg/inh inhalation aerosol 2 puffs, Inhalation, 2 times a day, # 12 Gm, 1 Refills, [facility], 162, cm, 03/20/22 19:50:00 EDT, Height, [...] oral tablet 5 mg, Tablet, By Mouth, 10/07/22 9:00:00 EST Start Date: 10/07/22 Stop Date: 10/07/22 Status: Completed lisinopril 5 mg oral tablet 5 mg, 1, tablet, By Mouth, Daily, # 90 tablet, Refills 2, Tot. Refills 2, Maintenance, 07/21/22 14:07:00 EDT, Route to Pharmacy Electronically, [facility], Partial fill upon patient requestif the prescription is for a schedule II opioid kaela... Start Date: 07/21/22 Stop Date: 04/17/23 Status: Ordered metFORMIN 500 mg oral tablet See Instructions, TAKE 1 EACH BY MOUTH 2 TIMES A DAY, # 60 tablet, 5 Refills, 08/07/22 10:55:00 EDT, [facility], 165.2, cm, 07/19/22 10:30:00 EDT, Height, [...] 10/04/22 15:29:00 EST, Route to Pharmacy Electronically, [facility], 157, cm, 10/01/22 6:31:00 EST, Height, 100, [...] Status: Ordered prazosin 1 mg oral capsule 2 mg, Capsule, By Mouth, 10/07/22 9:00:00 EST Start Date: 10/07/22 Stop Date: 10/07/22 Status: Completed prazosin 1 mg oral capsule 4 mg, 4, capsule, By Mouth, Daily at bedtime, # 120 capsule, Refills 5, Tot. Refills 5, Maintenance, 01/19/22 10:48:00 EDT, Route to Pharmacy Electronically, [facility], Partial fill upon patient request if the prescription is for a schedule... Start Date: 01/19/22 Status: Ordered ProAir HFA 90 mcg/inh inhalation aerosol 2 puffs, Inhalation, 4 times a day, PRN as needed for wheezing, # 6.7 Gm, 1 Refills, Maintenance, 06/23/22 16:17:00 EDT, Aerosol, [facility], Partial fill upon patient request if [...] 07/28/22 7:45:00 EDT, Route to Pharmacy Electronically, [facility], 165.2, cm, 07/19/22 10:30:00 EDT, Height, [...] Refills, Maintenance, 05/09/21 8:45:00 EDT, SR Tablet, [facility], 165, cm, 04/11/21 7:42:00 EDT, Height, [...] 3 Oxygen Saturation [94-100 %] 99 % (10/07/22 9:01 AM) 100 % (10/07/22 6:50 AM) 96 % (10/06/22 10:27 PM) Pulse Rate [55-90 bpm] 68 bpm (10/07/22 9:01 AM) 90 bpm (10/07/22 6:50 AM) 85 bpm (10/06/22 10:27 PM) Blood Pressure [90-138/55-84 mm Hg] 120/78mm Hg (10/07/22 9:01 AM) 120/78mm Hg (10/07/22 8:56 AM) 120/78mm Hg (10/07/22 8:56 AM) Respiratory Rate [16-30 br/min] 16 br/min (10/07/22 9:01 AM) 18 br/min (10/07/22 6:50 AM) 16 br/min (10/06/22 10:27 PM) Temperature [96.8-100.4 DegF] 98.5 DegF (10/07/22 9:01 AM) 99 DegF (10/07/22 6:50 AM) 98.5 DegF (10/06/22 10:27 PM) Mode of Delivery (Oxygen) Room air (10/07/22 9:01 AM) Room air (10/07/22 6:50 AM) Room air (10/06/22 10:27 PM) Blood pressure sites Arm, right (10/07/22 9:01 AM) Arm, right (10/07/22 6:50 AM) Arm, right (10/06/22 10:27 PM) Temperature Route Oral (10/07/22 9:01 AM) Oral (10/07/22 6:50 AM) Oral (10/06/22 10:27 PM) Social History Social History Type Response [...] Rosana Kearney RN Position: [facility] AMB Nurse [...] Professional Member Role: PCP Address: Address: [address] [place] [address]- Name: Jose Ramirez RN [facility] [...] Role: Primary Care Nurse Address: Address: [address] [place], [place] [id number] Clinical & [place] [address]- [place] Name: Parvez Kaba MD Position: [facility] Renal MD Member Role: Lifetime Consulting Physician Address: Address: [address] [place] [address] [facility] [place] [address]- Name: Yoana Ledezma RN Position: [facility] Villa RN Position: [facility] Hospital Medical Practice Administrator Member Role: Primary Care Nurse [facility] Attending Position: [facility] ED Attendings Patient Name: Dick Arias MD Position: [facility] ED Medicine MD Member Role: Admitting Physician Address: Address: [address] [place] [address] Name: Marie Beckham RN Position: [facility] ED RN W/OE and Tasks Member Role: Patient Care Provider Care Team Related Persons Name: JO-ANN ROMANBLOOD BANK BOOKING CLERKINDRA Address: [address] [place] [address] Name: JOURNEYMAN LEVEL ACOUSTIC ANALYSTGREGG Address: [address] [place] [address] Name: CARLOS PAZ Address: home [address] [place] [address]
--- OUTSIDE RECORDS SUMMARY | 2023-07-16 14:46 | XMS_ITS | Continuity of Care Document ---
Author Name Unknown Organization [facility] Adult Address [address] [place] [address]- Care Team Providers Care Cashier And Waiter/Waitress Name Role Phone Maribel Marquez NP Primary Care Physician [phone] [place] [facility]16[place] - 09/15/22 [facility] Adult [address] [place] [address]- Allergies, Adverse Reactions, Alerts Substance Reaction Severity [...] tablet, 1 Refills, Maintenance, 07/24/22 15:17:00 EDT, [facility], 165.2, cm, 07/19/22 10:30:00 EDT, Height, [...] a day, # 12 Gm, 1 Refills, [facility], 162, cm, 03/20/22 19:50:00 EDT, Height, [...] 60 tablet, 5 Refills, 08/07/22 10:55:00 EDT, [facility], 165.2, cm, 07/19/22 10:30:00 EDT, Height, [...] 01/04/22 11:12:00 EDT, Route to Pharmacy Electronically, [facility], 165, cm, 12/19/21 10:41:00 EST, Height, 103, kg, 11/26/21 8:59:00 EST, Start Date: 01/04/22 Status: Ordered pantoprazole 40 [...] 1 Refills, Maintenance, 06/23/22 16:17:00 EDT, Aerosol, [facility], Partial [...] 07/28/22 7:45:00 EDT, Route to Pharmacy Electronically, [facility], 165.2, cm, 07/19/22 10:30:00 EDT, Height, [...] Refills, Maintenance, 05/09/21 8:45:00 EDT, SR Tablet, [facility], 165, cm, 04/11/21 7:42:00 EDT, Height, [...] Team Personnel Name: Rudi Ruiz RN Position: [facility] ED RN W/OE and Tasks Member Role: Primary Care Nurse Name: Alicja Riggs RN Position: [facility] RN Member Role: Primary Care Nurse Name: Ros Fu RN Position: [facility] RN Member Role: Primary Care Nurse Name: Hilda Mccabe RN Position: [facility] RN Member Role: Primary Care Nurse Name: Rosana Kearney RN Position: [facility] AMB Nurse Member Role: Primary Care Nurse Name: Wil Flood RN Position: [facility] RN Member Role: Primary Care Nurse Name: Gagandeep Sheldon RN Position: [facility] RN Member Role: Primary Care Nurse Name: Chip Morton Position: [facility] Outreach Member Role: Lifetime Consulting Physician Name: Alba Daily RN Position: [facility] RN Member Role: Primary Care Nurse Name: Maribel Marquez NP Position: [facility] PCO Associate Professional Member Role: PCP Address: Address: [address] [place] [address]- Name: Jose Ramirez RN Position: [facility] RN Member Role: Primary Care Nurse Name: Brittany Butts RN Position: [facility] AMB Nurse Member Role: Primary Care Nurse Name: Mary Sánchez RN Position: [facility] RN Member Role: Primary Care Nurse Name: Shama Rosado RN Position: [facility] RN Member Role: Primary Care Nurse Name: Jackie Snyder RN Position: [facility] RN Member Role: Primary Care Nurse Name: Jay Burks NP Position: Reference Physician Member Role: Primary Care Nurse Address: Address: [address] [place] [address] Clinical & [place] [address]- Name: Parvez Kaba MD Position: [facility] Renal MD Member Role: Lifetime Consulting Physician Address: Address: [address] [place] [address] [facility] [place] [address]- Name: Yoana Ledezma RN Position: [facility] RN Member Role: Primary Care Nurse Name: Mirna Paul RN Position: [facility] OB RN Member Role: Primary Care Nurse Name: Latonya Rahman RN Position: [facility] Onco RN Member Role: Primary Care Nurse Name: Claudia Presley RN Position: [facility] RN Member Role: Primary Care Nurse Name: Iris Villa RN Position: [facility] Farm Machinery Erector Member Role: Primary Care Nurse Care Team Related Persons Name: LISBETH- ACCOUNT CONSULTANTINDRA Address: [address] [place] [address] Name: DESK OPERATORGREGG Address: [address] [place] [address] Name: CARLOS PAZ Address: home [address] [place] [address]
--- OUTSIDE RECORDS SUMMARY | 2023-07-16 14:46 | XMS_ITS | Continuity of Care Document ---
Author Name Unknown Organization [facility] Adult Address [address] [place] [address]- Care Team Providers Care Fundraiser Name Role Phone Maribel Marquez NP Primary Care Physician Encounter [facility] Date(s): 09/12/22 - 10/12/22 [facility] Adult [address] [place], [place] [address] Allergies, Adverse Reactions, Alerts Substance Reaction Severity [...] tablet, 1 Refills, Maintenance, 07/24/22 15:17:00 EDT, [facility], 165.2, cm, 07/19/22 10:30:00 EDT, Height, [...] 04/11/21 9:22:00 EDT, Route to Pharmacy Electronically, [facility], Partial fill upon patient request if the prescription is for a schedule II opioid dr... Start Date: 04/11/21 Stop Date: 01/06/22 Status: Ordered Flovent HFA 110 mcg/inh inhalation aerosol 2 puffs, Inhalation, 2 times a day, # 12 Gm, 1 Refills, [facility], 162, cm, 03/20/22 19:50:00 EDT, Height, [...] 07/21/22 14:07:00 EDT, Route to Pharmacy Electronically, [facility], Partial fill upon patient requestif the prescription is for a schedule II opioid kaela... Start Date: 07/21/22 Stop Date: 04/17/23 Status: Ordered metFORMIN 500 mg oral tablet See Instructions, TAKE 1 EACH BY MOUTH 2 TIMES A DAY, # 60 tablet, 5 Refills, 08/07/22 10:55:00 EDT, [facility], 165.2, cm, 07/19/22 10:30:00 EDT, Height, [...] 10/04/22 15:29:00 EST, Route to Pharmacy Electronically, [facility], 157, cm, 10/01/22 6:31:00 EST, Height, [...] 01/19/22 10:48:00 EDT, Route to Pharmacy Electronically, [facility], Partial fill upon patient request if the prescription is for a schedule... Start Date: 01/19/22 Status: Ordered ProAir HFA 90 mcg/inh inhalation aerosol 2 puffs, Inhalation, 4 times a day, PRN as needed for wheezing, # 6.7 Gm, 1 Refills, Maintenance, 06/23/22 16:17:00 EDT, Aerosol, [facility], Partial fill upon patient request [...] 07/28/22 7:45:00 EDT, Route to Pharmacy Electronically, [facility], 165.2, cm, 07/19/22 10:30:00 EDT, Height, [...] Refills, Maintenance, 05/09/21 8:45:00 EDT, SR Tablet, [facility], 165, cm, 04/11/21 7:42:00 EDT, Height, [...] Care Nurse Name: Alicja Riggs RN Position: [facility] RN Member Role: Primary Care Nurse Name: Ros Fu RN Position: [facility] RN Member Role: Primary Care Nurse Name: Hilda Mccabe RN Position: [facility] RN Member Role: Primary Care Nurse Name: Rosana Kearney RN Position: [facility] AMB Nurse Member Role: Primary Care Nurse Name: Wil Flood RN Position: [facility] RN Member Role: Primary Care Nurse Name: Gagandeep Sheldon RN Position: [facility] RN Member Role: Primary Care Nurse Name: Chip Morton Position: [facility] Outreach Member Role: Lifetime Consulting Physician Name: Alba Daily RN Position: [facility] RN Member Role: Primary Care Nurse Name: Maribel Marquez NP Position: [facility] PCO Associate Professional Member Role: PCP Address: Address: [address] [place] [address]- Name: Jose Ramirez RN Position: [facility] RN Member Role: Primary Care Nurse Name: Brittany Butts RN Position: [facility] AMB Nurse Member Role: Primary Care Nurse Name: Mary Sánchez RN Position: [facility] RN Member Role: Primary Care Nurse Name: Shama Rosado RN Position: [facility] RN Member Role: Primary Care Nurse Name: Jackie Snyder RN Position: [facility] RN Member Role: Primary Care Nurse Name: Jay Burks NP Position: Reference Physician Member Role: Primary Care Nurse Address: Address: [address] [place], [place] [id number] Clinical & [place] [address]- Name: Parvez Kaba MD Position: [facility] Renal MD Member Role: Lifetime Consulting Physician Address: Address: [address] [place] [address] [facility] [place] [address]- Name: Yoana Ldeezma RN Position: [facility] RN Member Role: Primary Care Nurse Name: Mirna Paul RN Position: [facility] OB RN Member Role: Primary Care Nurse Name: Latonya Rahman RN Position: [facility] Onco RN Member Role: Primary Care Nurse Name: Claudia Presley RN Position: [facility] RN Member Role: Primary Care Nurse Name: Iris Villa RN Position: [facility] Hospital Treating Machine Operator Member Role: Primary Care Nurse Care Team Related Persons Name: JO-ANN ROMANSERVICE LINE COORDINATORINDRA Address: [address] [place] [address] Name: PURLERGREGG Address: [address] [place] [address] Name: CARLOS PAZ Address: [address] [place] [address]
--- OUTSIDE RECORDS SUMMARY | 2023-07-16 14:46 | XMS_ITS | Continuity of Care Document ---
Author Name Unknown Organization [facility] ter Address [address] [place] [address]- Care Team Providers Care Ecological Economist Name Role Phone Maribel Marquez NP Primary Care Physician [phone] [place] [facility] [place] 02/05/22 - 02/06/[address] [address]- Discharge Disposition: A-D/C Home Attending Physician: Brian Brown DO Admitting Physician: Brian Brown DO Referring Physician: Not on Staff, Referring MD Allergies, Adverse Reactions, Alerts Substance Reaction Severity Status codeine Active predniSONE Active Geodon Active penicillin Active sulfa drugs Active Macrobid Active Zithromax Active Seafood Active Immunizations Given and Recorded Vaccine Date [...] tablet, 0 Refills, Maintenance, 01/04/22 11:12:00 EDT, [facility], Partial fill upon patient request [...] a day, # 12 Gm, 2 Refills, [facility], 165, cm, 12/19/21 10:41:00 EST, [...] 04/04/22 12:34:00 EDT, 01/04/22 12:34:00 EDT, Tablet, [facility], Partial fill upon patient request if the prescription is f... Start Date: 01/04/22 Stop Date: 04/04/22 Status: Ordered metFORMIN 500 mg oral tablet See Instructions, TAKE 1 EACH BY MOUTH 2 TIMES A DAY, # 60 tablet, 5 Refills, [facility],165, cm, 01/19/22 13:55:00 EDT, Height, [...] 14:30:00 EDT, 01/30/22 14:10:00 EDT, REC Powder, [facility], Partialfill upon patient request if the prescription [...] 01/04/22 11:12:00 EDT, Route to Pharmacy Electronically, [facility], 165, cm, 12/19/21 10:41:00 EST, Height, 103, kg, 11/26/21 8:59:00 EST, Start Date: 01/04/22 Status: Ordered nicotine 21 mg/24 hr transdermal film, extended release 1 patch, Topically, Daily, for 30 days, # 30 patch, 0 Refills, Acute 02/18/22 14:31:00 EDT, 01/19/22 14:31:00 EDT, Patch, [facility], Partial fill upon patient request if the prescription is for a schedule II opioid drug., 1 patch Topically... Start Date: 01/19/22 Stop Date: 02/18/22 Status: Ordered ondansetron 4 mg oral tablet 1 tablet = 4 mg, By Mouth, Every 8 hours, PRN Nausea & Vomiting, # 10 tablet, 0 Refills, Acute 02/08/22 15:00:00 EDT, 02/04/22 15:23:00 EDT, Tablet, [facility], Partial fill upon patient request [...] 01/19/22 10:48:00 EDT, Route to Pharmacy Electronically, [facility], Partial fill upon patient request [...] Refills, Maintenance, 05/09/21 8:45:00 EDT, SR Tablet, [facility], 165, cm, 04/11/21 7:42:00 EDT, [...] Exam Date Time Procedure Performing Provider Status 02/06/22 11:02 AM Chest 2 Views Frontal and Lat Lucita Cook; Ralph (Verified) Notes: (Chest 2 Views Frontal and Lat) Reason For Exam: Shortness of Breath, Fever;Other: RESULT: Chest 2 Views Frontal and Lat Examination: Chest performed on 02/06/2022. History: Abdominal pain. Nausea and vomiting. Findings: Frontal and lateral views of the chest are compared to a prior study dated 01/29/2022. The cardiac and mediastinal silhouettes are within normal limits. The lungs are clear. The osseous and soft tissue structures are unremarkable. Impression: There is no acute cardiopulmonary disease. WSN: [id number] Ordering Physician: Cara Miranda Dictated By: Ebony Butts MD Dictated Date/Time: 02/06/22 11:04 a Reviewed By: Ebony Butts MD Signed By: Ebony Butts MD Signed Date/Time: 02/06/22 11:04 am Transcribed By: DAVIS Transcribed Date/Time: 02/06/22 11:04 am Vital Signs Most recent to oldest [Reference Range]: 1 2 3 Oxygen Saturation [94-100 %] 99 % (02/06/22 1:20 PM) 98 % (02/06/22 10:03 AM) 97 % (02/06/22 7:54 AM) Pulse Rate [55-90 bpm] 71 bpm (02/06/22 1:20 PM) 78 bpm (02/06/22 10:03 AM) 80 bpm (02/06/22 7:54 AM) Blood Pressure [90-138/55-84 mm Hg] 149/89mm Hg *H* (02/06/22 1:20 PM) 134/94mm Hg (02/06/22 10:03 AM) 126/86mm Hg (02/06/22 7:54 AM) Respiratory Rate [16-30 br/min] 18 br/min (02/06/22 1:20 PM) 18 br/min (02/06/22 10:03 AM) 18 br/min (02/06/22 7:54 AM) Temperature [96.8-100.4 DegF] 98.1 DegF (02/06/22 1:20 PM) 98.1 DegF (02/06/22 10:03 AM) 97.8 DegF (02/06/22 7:54 AM) Mode of Delivery (Oxygen) Room air (02/06/22 1:20 PM) Room air (02/06/22 10:03 AM) Room air (02/06/22 7:54 AM) Blood pressure sites Arm, right (02/06/22 1:20 PM) Arm, right (02/06/22 10:03 AM) Arm, left (02/06/22 7:54 AM) Temperature Route Oral (02/06/22 1:20 PM) Oral (02/06/22 10:03 AM) Oral (02/06/22 7:54 AM) Social History Social History Type Response Smoking Status 10 or more cigarette s (1/2 pack or more)/day in last 30 days; Type: Cigarettes; Other: Reports smoking 1/2-1 packs/day, ending on level of stress; Started at age: 25; entered on: 12/31/20 Sex
--- OUTSIDE RECORDS SUMMARY | 2023-07-16 14:46 | XMS_ITS | Continuity of Care Document ---
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 Start Date: 04/11/21 Stop Date: 01/06/22 Status: Ordered Flovent HFA 110 mcg/inh inhalation aerosol 2 puffs, Inhalation, 2 times a day, # 12 Gm, 1 Refills, [facility], 162, cm, 03/20/22 19:50:00 EDT, Height, [...] A DAY, # 60 tablet, 5 Refills, [facility],165, cm, 01/19/22 13:55:00 EDT, Height, 103, [...] 01/04/22 11:12:00 EDT, Route to Pharmacy Electronically, [facility], 165, cm, 12/19/21 10:41:00 EST, Height, [...] 01/19/22 10:48:00 EDT, Route to Pharmacy Electronically, [facility], Partial fill upon patient request if the prescription is for a schedule... Start Date: 01/19/22 Status: Ordered ProAir HFA 90 mcg/inh inhalation aerosol 2 puffs, Inhalation, 4 times a day, PRN as needed for wheezing, # 6.7 Gm, 1 Refills, Maintenance, 06/23/22 16:17:00 EDT, Aerosol, [facility], Partial fill upon patient request if the prescription is for a schedule II opioid drug., 2 puffs In... Start Date: 06/23/22 Stop Date: 07/07/22 Status: Ordered PROzac 40 mg oral capsule 1 capsule = 40 mg, By Mouth, Daily in AM, Maintenance, 11/08/21 12:50:00 EST, Capsule, ; Start Date: 11/08/21 Status: Ordered Senna 8.6 mg oral tablet 17.2 mg, 2, tablet, By Mouth, Daily at bedtime, PRN, for 30 days, # 60 tablet, Refills 0, Tot. Refills 0, Acute, constipation, 07/23/22 16:16:00 EDT, 06/23/22 16:16:00 EDT, Route to Pharmacy Electronically, [facility], Partial fill upon los... Start Date: 06/23/22 Stop Date: 07/23/22 Status: Ordered traZODone 100 mg oral tablet 150 mg, 1.5, tablet, By Mouth, Daily, PRN, Maintenance, as needed, 11/08/21 12:54:00 EST, ; Start Date: 11/08/21 Status: Ordered verapamil 240 mg/12 hours oral tablet, extended release 1 tablet = 240 mg, By Mouth, Daily at bedtime, # 90 tablet, 1 Refills, Maintenance, 05/09/21 8:45:00 EDT, SR Tablet, [facility], 165, cm, 04/11/21 7:42:00 EDT, Height, [...] 1 Oxygen Saturation [94-100 %] 97 % (07/10/22 7:31 PM) Pulse Rate [55-90 bpm] 88 bpm (07/10/22 7:31 PM) Blood Pressure [90-138/55-84 mm Hg] 151/ 104mm Hg *H* (07/10/22 7:31 PM) Respiratory Rate [16-30 br/min] 16 br/mi n (07/10/22 7:31 PM) Temperature [96.8-100.4 DegF] 98.2 DegF (07/10/22 7:31 PM) Mode of Delivery (Oxygen) Room air (07/10/22 7:31 PM) Blood pressure sites Arm, left (07/10/22 7:31 PM) Temperature Route Oral (07/10/22 7:31 PM) Social History Social History Type Response Smoking Status 10 or more cigarette s (1/2 pack or more)/day in last 30 days; Type: Cigarettes; Other: Reports smoking 1/2-1 packs/day, ending on level of stress; Started at age: 25; entered on: 12/31/20 Sex Care Team Personnel Name: Maribel Marquez NP Address: [address] [place] [id number]
--- OUTSIDE RECORDS SUMMARY | 2023-07-16 14:46 | XMS_ITS | Continuity of Care Document ---
Author Name Unknown Organization [facility] ter Address [address] [place] [address]- Care Team Providers Care Web Marketing Coordinator Name Role Phone Maribel Marquez NP Primary Care Physician [phone] [place] [facility] [place] - 06/21/[address] [address]- Encounter Diagnosis Hallucinations(Final) - 06/20/22 Discharge Disposition: A-D/C Home Attending Physician: Jerald Noble MD Admitting Physician: Jerald Noble MD Referring Physician: Not on Staff, Referring [...] tablet, 0 Refills, Maintenance, 01/04/22 11:12:00 EDT, [facility], Partial fill upon patient request if [...] 04/11/21 9:22:00 EDT, Route to Pharmacy Electronically, [facility], Partial fill upon patient request if the prescription is for a schedule II opioid drCheyanne. Start Date: 04/11/21 Stop Date: 01/06/22 Status: Ordered Flovent HFA 110 mcg/inh inhalation aerosol 2 puffs, Inhalation, 2 times a day, # 12 Gm, 1 Refills, [facility], 162, cm, 03/20/22 19:50:00 EDT, Height, [...] A DAY, # 60 tablet, 5 Refills, [facility],165, cm, 01/19/22 13:55:00 EDT, Height, 103, [...] 01/04/22 11:12:00 EDT, Route to Pharmacy Electronically, [facility], 165, cm, 12/19/21 10:41:00 EST, Height, [...] 01/19/22 10:48:00 EDT, Route to Pharmacy Electronically, [facility], Partial fill upon patient request if [...] Refills, Maintenance, 05/09/21 8:45:00 EDT, SR Tablet, [facility], 165, cm, 04/11/21 7:42:00 EDT, Height, [...] 2 Oxygen Saturation [94-100 %] 99 % (06/20/22 7:56 PM) Pulse Rate [55-90 bpm] 86 bpm (06/20/22 11:00 PM) 77 bpm (06/20/22 7:56 PM) Blood Pressure [90-138/55-84 mm Hg] 109/ 52mm Hg (06/20/22 11:00 PM) 141/89mm Hg *H* (06/20/22 7:56 PM) Respiratory Rate [16-30 br/min] 16 br/mi n (06/20/22 11:00 PM) 18 br/min (06/20/22 7:56 PM) Temperature [96.8-100.4 DegF] 98 DegF (06/20/22 11:00 PM) 98.0 DegF (06/20/22 7:56 PM) Mode of Delivery (Oxygen) Room air (06/20/22 7:56 PM) Blood pressure sites Arm, left (06/20/22 7:56 PM) Temperature Route Oral (06/20/22 7:56 PM) Social History Social History Type Response Smoking Status 10 or more cigarette s (1/2 pack or more)/day in last 30 days; Type: Cigarettes; Other: Reports smoking 1/2-1 packs/day, ending on level of stress; Started at age: 25; entered on: 12/31/20 Sex Care Team Personnel Name: Maribel Marquez NP Address: [address] [place] [address]
--- OUTSIDE RECORDS SUMMARY | 2023-07-16 14:46 | XMS_ITS | Continuity of Care Document ---
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 Start Date: 11/16/22 Status: Ordered atorvastatin 10 mg oral tablet 1 tablet = 10 mg, By Mouth, Daily at bedtime, # 30 tablet, 0 Refills, Maintenance, 11/16/22 10:33:00 EST, Tablet, [facility], Partial fill upon patient request [...] 0 Refills, Maintenance, 11/16/22 10:33:00 EST, Tablet, [facility], Partial fill upon patient request [...] 11/16/22 10:34:00 EST, Route to Pharmacy Electronically, [facility], Partial fill upon patient request [...] 11/16/22 10:34:00 EST, Route to Pharmacy Electronically, [facility], Partial fill upon patient requestif the [...] 0 Refills, Maintenance, 11/16/22 10:34:00 EST, Tablet, [facility], Partial fill upon patient request [...] 0 Refills, Maintenance, 11/16/22 10:34:00 EST, Tablet, [facility], Partial fill upon patient request [...] 11/16/22 10:34:00 EST, Route to Pharmacy Electronically, [facility], Partial fill upon patient request if the prescription is for a schedule I... Start Date: 11/16/22 Status: Ordered montelukast 10 mg oral tablet Refills 0, Maintenance, 01/06/23 18:05:00 EDT, Partial fill upon patient request if the prescription is for a schedule II opioid drug. Start Date: 01/06/23 Status: Ordered nystatin topical [id number] u/gm cream 1 application, Topically, 2 times a day, # 15 Gm, 0 Refills, Maintenance, 01/05/23 15:04:00 EDT, Cream, [facility], Partial fill upon patient request if the prescription is for a schedule II opioid drug., 1 application Topically 2 times a da... Start Date: 01/05/23 Status: Ordered nystatin topical 430244 u/gm cream 0 Refills, Maintenance, 01/06/23 18:05:00 [...] Maintenance,11/16/22 10:34:00 EST, Route to Pharmacy Electronically, [facility] [...] [Reference Range]: 1 Oxygen Saturation [94-100 %] 96 % (02/03/23 6:41 PM) Pulse Rate [55-90 bpm] 90 bpm (02/03/23 6:41 PM) Blood Pressure [90-138/55-84 mm Hg] 150/ 86mm Hg *H* (02/03/23 6:41 PM) Respiratory Rate [16-30 br/min] 18 br/mi n (02/03/23 6:41 PM) Temperature [96.8-100.4 DegF] 98.2 DegF (02/03/23 6:41 PM) Mode of Delivery (Oxygen) Room air (02/03/23 6:41 PM) Temperature Route Oral (02/03/23 6:41 PM) Social History Social History Type Response Smoking Status 10 or more cigarette s (1/2 pack or more)/day in last 30 days; Type: Cigarettes; Other: Reports smoking 1/2-1 packs/day, ending on level of stress; Started at age: 25; entered on: 11/18/22 Sex Patient Care team information Care Team Personnel Name: Rudi Ruiz RN Position: [facility] ED RN W/OE and Tasks Member Role: Primary Care Nurse Name: Alicja Riggs RN Position: [facility] RN Member Role: Primary Care Nurse Name: Ros Fu RN Position: [facility] RN Member Role: Primary Care Nurse Name: Hilda Mccabe RN Position: [facility] RN Member Role: Primary Care Nurse Name: Rosana Kearney RN Position: [facility] SN RN Member Role: Primary Care Nurse Name: Wil Flood RN Position: [facility] RN Member Role: Primary Care Nurse Name: Gagandeep Sheldon RN Position: [facility] RN Member Role: Primary Care Nurse Name: Chip Morton Position: [facility] Outreach Member Role: Lifetime Consulting Physician Name: Alba Daily RN Position: [facility] RN Member Role: Primary Care Nurse Name: Maribel Marquez NP Position: [facility] PCO Associate Professional Member Role: PCP Address: Address: [address] [place] [id number]- [place] Name: Jose Ramirez RN Position: [facility] RN Member Role: Primary Care Nurse Name: Brittany Butts RN Position: [facility] AMB Nurse Member Role: Primary Care Nurse Name: Pauline Mcadams RN Position: [facility] RN Member Role: Primary Care Nurse Name: Mary Sánchez RN Position: [facility] RN Member Role: Primary Care Nurse Name: Shama Rosado RN Position: [facility] RN Member Role: Primary Care Nurse Name: Jackie Snyder RN Position: [facility] RN Member Role: Primary Care Nurse Name: Jay Burks NP Position: Reference Physician Member Role: Primary Care Nurse Address: Address: [address] [place] [address] [facility] [place] [address]- [place] Name: Parvez Kaba MD Position: [facility] Renal MD Member Role: Lifetime Consulting Physician Address: Address: [address] [place] [address] [facility] [place] [address]- [place] Name: Mirna Paul RN Position: [facility] OB RN Member Role: Primary Care Nurse Name: Latonya Rahman RN Position: [facility] Onco RN Member Role: Primary Care Nurse Name: Viki Gonzalez RN Position: [facility] RN Member Role: Primary Care Nurse Name: Claudia Presley RN Position: [facility] RN Member Role: Primary Care Nurse Name: Iris Villa RN Position: [facility] Hospital Circular Ripsaw Operator Member Role: Primary Care Nurse Name: Mehnaz Olivia RN Position: [facility] ED RN W/OE and Tasks Member Role: Patient Care Provider Name: Leydi Sheridan Position: [facility] ED TA [facility] Name: Rimma Holder MD Position: [facility] Resident Member Role: ED Resident Address: Address: [address] [place] [address] [place] [address]- [place] Name: Robby Trinidad MD Position: [facility] ED Medicine MD Member Role: Admitting Physician Address: Address: [address] [place] [address] [place] [address]- Care Team Related Persons Name: LISBETH- BODY STYLISTINDRA Address: [address] [place] [address] Name: POLICE CRIME SCENE TECHNICIANGREGG Address: [address] [place] [address] Name: CARLOS PAZ Address: home [address] [place] [address]
--- OUTSIDE RECORDS SUMMARY | 2023-07-16 14:46 | XMS_ITS | Continuity of Care Document ---
Author Name Unknown Organization [facility] Address [address] [place] [address]- Care Team Providers Care Fan Mail Editor Name Role Phone Maribel Marquez NP Primary Care Physician [place] [facility] [place] 01[place]19[place] - 02/23/21 [facility] [address] [place] [address]- Attending Physician: Not on Staff, Attending MD [...] bedtime, # 30 tablet, 0 Refills, Maintenance, 03/11/21 16:38:00 EST, Tablet, [facility], Partial [...] 12/23/20 15:38:00 EST, Route to Pharmacy Electronically, [facility], Partial fill upon patient request if the prescription is for a schedule II opioid d... Start Date: 12/23/20 Status: Ordered Flovent HFA 110 mcg/inh inhalation aerosol 2 puffs = 220 mcg, Inhalation, 2 times a day, # 1 each, 0 Refills, Maintenance, 12/23/20 15:38:00 EST, Aerosol, [facility], 162, cm, 12/23/20 10:43:00 EST, Height, 122.1, kg, 12/21/20 16:25:00 EST, Dry Weight Start Date: 12/23/20 Status: Ordered Haldol Decanoate decanoate 100 mg/ml injectable solution = 100 mg, Intramuscular, Every 28 days, last dose given on 09/17/2020. Next due 10/15/20., # 1 each, 0Refills, Soft Stop, 07/22/20 18:42:00 EDT, Solution, [facility], 163.5, cm, 07/22/20 18:29:00 EDT, Height, 102.5, kg, 07/18/20 21:04:00 EDT,... Start Date: 07/22/20 Status: Ordered lisinopril 5 mg oral tablet 5 mg, 1, tablet, By Mouth, Daily, # 30 tablet, Refills 0, Tot. Refills 0, Maintenance, 02/09/20 10:10:00 EDT, Route to Pharmacy Electronically, [facility], 165, cm, 02/08/20 19:47:00 EDT, Height, [...] 0 Refills, Maintenance, 12/23/20 16:38:00 EST, Tablet, [facility], Partial fill upon patient request if the prescription is for a schedule II opioid drug., 162, cm, 12/23/20 15:59:00 EST... Start Date: 12/23/20 Stop Date: 01/22/21 Status: Ordered montelukast 10 mg oral tablet 10 mg, 1, tablet, By Mouth, Daily, # 30 tablet, Refills 0, Tot. Refills 0, Maintenance, 02/09/20 10:11:00 EDT, Route to Pharmacy Electronically, [facility], 165, cm, 02/08/20 19:47:00 EDT, Height, 104.5, kg, 02/07/20 8:15:00 EDT, Dry Weight Start Date: 02/09/20 Status: Ordered norethindrone 0.35 mg oral tablet 1 tablet = 0.35 mg, By Mouth, Daily, # 30 tablet, 0 Refills, Maintenance, 02/09/20 10:07:00 EDT, Tablet, [facility], 165, cm, 02/08/20 19:47:00 EDT, Height, [...] Refills, Maintenance, 12/23/20 15:38:00 EST, REC Powder, [facility], Partial fill upon patient request if [...] 0 Refills, Maintenance, 02/09/20 10:05:00 EDT, Inhaler, [facility], 165, cm, 02/08/20 19:47:00 EDT, Height, 104.5, kg, 02/07/20 8:15:00 EDT, Dry Weight Start Date: 02/09/20 Stop Date: 03/10/20 Status: Ordered verapamil 240 mg/12 hours oral tablet, extended release 1 tablet = 240 mg, By Mouth, Daily at bedtime, # 30 tablet, 0 Refills, Maintenance, 02/09/20 10:14:00 EDT, SR Tablet, [facility], 165, cm, 02/08/20 19:47:00 EDT, Height, [...]
--- OUTSIDE RECORDS SUMMARY | 2023-07-16 14:46 | XMS_ITS | Continuity of Care Document ---
Author Name Unknown Organization [facility] ter Address [address] [place] [address]- Care Team Providers Care Insurance Sales Associate Name Role Phone Michelle Norris MD Primary Care Physician En[place] [facility] [place] Date(s): 07/31/20 - 08/01/[address] [address]- [facility] Encounter Diagnosis Auditory hallucination(Final) - 07/31/20 Discharge Disposition: A-D/C Home Attending Physician: Lenore Pantoja MD Admitting Physician: Lenore Pantoja MD Referring Physician: Not on Staff, Referring MD Allergies, Adverse Reactions, Alerts Substance Reaction Severity Status codeine Active lithium 1 Active penicillin Active predniSONE Active sulfa drugs Active Macrobid Active Seafood Active Geodon Active 1pt reports 01/17/13 started taking lithium about a week ago. Immunizations Given and Recorded Vaccine Date Status Refusal Reason influenza virus vaccine, inactivated 07/20/20 Give n [...] 0 Refills, Maintenance, 02/09/20 10:07:00 EDT, Tablet, [facility], 165, cm, 02/08/20 19:47:00 EDT, Height, [...] 0 Refills, Maintenance, 02/09/20 10:08:00 EDT, Tablet, [facility], 165, cm, 02/08/20 19:47:00 EDT, Height, 104.5, kg,02/07/20 8:15:00 EDT, Dry Weight Start Date: 02/09/20 Status: Ordered Claritin 10 mg oral tablet 10 mg, 1, tablet, By Mouth, Daily, # 30 tablet, Refills 0, Tot. Refills 0, Maintenance, 02/09/20 10:10:00 EDT, Route to Pharmacy Electronically, [facility], 165, cm, 02/08/20 19:47:00 EDT, Height, 104.5, kg, 02/07/20 8:15:00 EDT, Dry Weight Start Date: 02/09/20 Status: Ordered Colace sodium 100 mg oral capsule 100 mg, 1, capsule, By Mouth, 2 times a day, PRN, # 60 capsule, Refills 0, Tot. Refills 0, Maintenance, Constipation, 02/09/20 10:08:00 EDT, Route to Pharmacy Electronically, [facility], 165, cm, 02/08/20 19:47:00 EDT, Height, 104.5, kg, 04/... Start Date: 02/09/20 Status: Ordered doxazosin 1 mg oral tablet 3 mg, 3, tablet, By Mouth, Daily at bedtime, # 90 tablet, Refills 0, Tot. Refills 0, Maintenance, 07/22/20 18:41:00 EDT, Route to Pharmacy Electronically, [facility], 163.5, cm, 07/22/20 18:29:00 EDT, Height, 102.5, kg, 07/18/20 21:04:00 EDT... Start Date: 07/22/20 Status: Ordered Flonase 50 mcg/inh nasal spray 1 sprays = 50 mcg, Nares, Both, 2 times a day, # 16 Gm, 0 Refills, Maintenance, 02/09/20 10:09:00 EDT, Nasal [place], [facility], 1 sprays Nares, Both 2 times a day,x30 days, 165, cm, 02/08/20 19:47:00 EDT, Height, 104.5, kg, 02/07/20 8:15:00... Start Date: 02/09/20 Stop Date: 03/10/20 Status: Ordered Flovent HFA 110 mcg/inh inhalation aerosol 2 puffs = 220 mcg, Inhalation, 2 times a day, # 1 each, 0 Refills, Maintenance, 02/09/20 10:06:00 EDT, Aerosol, [facility], 165, cm, 02/08/20 19:47:00 EDT, Height, 104.5, kg, 02/07/20 8:15:00 EDT, Dry Weight Start Date: 02/09/20 Status: Ordered Haldol Decanoate decanoate 100 mg/ml injectable solution = 100 mg, Intramuscular, Every 28 days, last dose given on 07/21/2020, # 1 each, 0 Refills, Soft Stop, 07/22/20 18:42:00 EDT, Solution, [facility], 163.5, cm, 07/22/20 18:29:00 EDT, Height, 102.5, kg, 07/18/20 21:04:00 EDT, Dry Weight Start Date: 07/22/20 Status: Ordered haloperidol 5 mg oral tablet 5 mg, 1, tablet, By Mouth, 2 times a day, take 1 tablet BID for one week then stop., # 14 tablet, Refills 0, Tot. Refills 0, Maintenance, 07/22/20 18:39:00 EDT, Route to Pharmacy Electronically, [facility], 163.5, cm, 07/22/20 18:29:00 EDT,... Start Date: 07/22/20 Status: Ordered ibuprofen [...] 02/09/20 10:10:00 EDT, Route to Pharmacy Electronically, [facility], 165, cm, 02/08/20 19:47:00 EDT, Height, [...] 02/09/20 10:11:00 EDT, Route to Pharmacy Electronically, [facility], 165, cm, 02/08/20 19:47:00 EDT, Height, 104.5, kg, 02/07/20 8:15:00 EDT, Dry Weight Start Date: 02/09/20 Status: Ordered norethindrone 0.35 mg oral tablet 1 tablet = 0.35 mg, By Mouth, Daily, # 30 tablet, 0 Refills, Maintenance, 02/09/20 10:07:00 EDT, Tablet, [facility], 165, cm, 02/08/20 19:47:00 EDT, Height, [...] Date: 11/05/19 Stop Date: 12/03/19 Status: Ordered traZODone 50 mg oral tablet 150 mg, 3, tablet, By Mouth, Daily at bedtime, PRN, Refills 0, Maintenance, Sleep, 07/22/20 18:41:00 EDT Start Date: 07/22/20 Status: Ordered Trileptal 300 mg oral tablet 300 mg, 1, tablet, By Mouth, Daily at bedtime, # 30 tablet, Refills 0, Tot. Refills 0, Maintenance,02/09/20 10:18:00 EDT, Route to Pharmacy Electronically, [facility], 165, cm, 02/08/20 19:47:00 EDT, Height, 104.5, kg, 02/07/20 8:15:00 EDT,... Start Date: 02/09/20 Status: Ordered Ventolin HFA 108 mcg/inh inhalation aerosol with adapter 2 puffs = 180 mcg, Inhalation, 4 times a day, PRN for wheezing, # 1 each, 0 Refills, Maintenance, 02/09/20 10:05:00 EDT, Inhaler, [facility], 165, cm, 02/08/20 19:47:00 EDT, Height, 104.5, kg, 02/07/20 8:15:00 EDT, Dry Weight Start Date: 02/09/20 Stop Date: 03/10/20 Status: Ordered verapamil 240 mg/12 hours oral tablet, extended release 1 tablet = 240 mg, By Mouth, Daily at bedtime, # 30 tablet, 0 Refills, Maintenance, 02/09/20 10:14:00 EDT, SR Tablet, [facility], 165, cm, 02/08/20 19:47:00 EDT, Height, [...] 3 Oxygen Saturation [94-100 %] 98 % (08/01/20 4:19 AM) 99 % (07/31/20 8:34 PM) 99 % (07/31/20 5:47 PM) Pulse Rate [55-90 bpm] 83 bpm (08/01/20:19 AM) 88 bpm (07/31/20 8:34 PM) 99 bpm *H* (07/31/20 5:47 PM) Blood Pressure [90-138/55-84 mm Hg] 121/65mm Hg (08/01/20 4:19 AM) 148/88mm Hg *H* (07/31/20 8:34 PM) 152/109mm Hg *H* (07/31/20 5:47 PM) Respiratory Rate [16-30 br/min] 16 br/min (08/01/20 4:19 AM) 20 br/min (07/31/20 8:34 PM) 20 br/min (07/31/20 5:47 PM) Temperature [96.8-100.4 DegF] 98.8 DegF (08/01/20 4:19 AM) 98.9 DegF (07/31/20 8:34 PM) 97.5 DegF (07/31/20 5:47 PM) Mode of Delivery (Oxygen) Room air (08/01/20 4:19 AM) Room air (07/31/20 8:34 PM) Room air (07/31/20 5:47 PM) Blood pressure sites Arm, right (08/01/20 4:19 AM) Arm, right (07/31/20 8:34 PM) Arm, right (07/31/20 5:47 PM) Temperature Route Oral (08/01/20 4:19 AM) Oral (07/31/20 8:34 PM) Oral (07/31/20 5:47 PM) Social History Social History Type Response Smoking Status 10 or more cigarette s (1/2 pack or more)/day in last 30 days; Use: smokes 1 pack a day entered on: 05/10/19 Sex
--- OUTSIDE RECORDS SUMMARY | 2023-07-16 14:46 | XMS_ITS | Continuity of Care Document ---
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 Name Role Phone Michelle Norris MD Primary Care Physician [phone] Encounter [facility] Date(s): 08/04/20 - 08/04/[address] [address] Diagnosis Suicidal ideation(Final) - 08/04/20 Discharge Disposition: A-D/C Home Attending Physician: Brian [...] 0 Refills, Maintenance, 02/09/20 10:07:00 EDT, Tablet, [facility], 165, cm, 02/08/20 19:47:00 EDT, Height, [...] 0 Refills, Maintenance, 02/09/20 10:08:00 EDT, Tablet, [facility], 165, cm, 02/08/20 19:47:00 EDT, Height, 104.5, kg,02/07/20 8:15:00 EDT, Dry Weight Start Date: 02/09/20 Status: Ordered Claritin 10 mg oral tablet 10 mg, 1, tablet, By Mouth, Daily, # 30 tablet, Refills 0, Tot. Refills 0, Maintenance, 02/09/20 10:10:00 EDT, Route to Pharmacy Electronically, [facility], 165, cm, 02/08/20 19:47:00 EDT, Height, 104.5, kg, 02/07/20 8:15:00 EDT, Dry Weight Start Date: 02/09/20 Status: Ordered Colace sodium 100 mg oral capsule 100 mg, 1, capsule, By Mouth, 2 times a day, PRN, # 60 capsule, Refills 0, Tot. Refills 0, Maintenance, Constipation, 02/09/20 10:08:00 EDT, Route to Pharmacy Electronically, [facility], 165, cm, 02/08/20 19:47:00 EDT, Height, 104.5, kg, 04/... Start Date: 02/09/20 Status: Ordered doxazosin 1 mg oral tablet 3 mg, 3, tablet, By Mouth, Daily at bedtime, # 90 tablet, Refills 0, Tot. Refills 0, Maintenance, 07/22/20 18:41:00 EDT, Route to Pharmacy Electronically, [facility], 163.5, cm, 07/22/20 18:29:00 EDT, Height, 102.5, kg, 07/18/20 21:04:00 EDT... Start Date: 07/22/20 Status: Ordered Flonase 50 mcg/inh nasal spray 1 sprays = 50 mcg, Nares, Both, 2 times a day, # 16 Gm, 0 Refills, Maintenance, 02/09/20 10:09:00 EDT, Nasal [place], [facility], 1 sprays Nares, Both 2 times a day,x30 days, 165, cm, 02/08/20 19:47:00 EDT, Height, 104.5, kg, 02/07/20 8:15:00... Start Date: 02/09/20 Stop Date: 03/10/20 Status: Ordered Flovent HFA 110 mcg/inh inhalation aerosol 2 puffs = 220 mcg, Inhalation, 2 times a day, # 1 each, 0 Refills, Maintenance, 02/09/20 10:06:00 EDT, Aerosol, [facility], 165, cm, 02/08/20 19:47:00 EDT, Height, 104.5, kg, 02/07/20 8:15:00 EDT, Dry Weight Start Date: 02/09/20 Status: Ordered Haldol Decanoate decanoate 100 mg/ml injectable solution = 100 mg, Intramuscular, Every 28 days, last dose given on 07/21/2020, # 1 each, 0 Refills, Soft Stop, 07/22/20 18:42:00 EDT, Solution, [facility], 163.5, cm, 07/22/20 18:29:00 EDT, Height, 102.5, kg, 07/18/20 21:04:00 EDT, Dry Weight Start Date: 07/22/20 Status: Ordered haloperidol 5 mg oral tablet 5 mg, 1, tablet, By Mouth, 2 times a day, take 1 tablet BID for one week then stop., # 14 tablet, Refills 0, Tot. Refills 0, Maintenance, 07/22/20 18:39:00 EDT, Route to Pharmacy Electronically, [facility], 163.5, cm, 07/22/20 18:29:00 EDT,... Start [...] 02/09/20 10:10:00 EDT, Route to Pharmacy Electronically, [facility], 165, cm, 02/08/20 19:47:00 EDT, Height, [...] 02/09/20 10:11:00 EDT, Route to Pharmacy Electronically, [facility], 165, cm, 02/08/20 19:47:00 EDT, Height, 104.5, kg, 02/07/20 8:15:00 EDT, Dry Weight Start Date: 02/09/20 Status: Ordered norethindrone 0.35 mg oral tablet 1 tablet = 0.35 mg, By Mouth, Daily, # 30 tablet, 0 Refills, Maintenance, 02/09/20 10:07:00 EDT, Tablet, [facility], 165, cm, 02/08/20 19:47:00 EDT, Height, [...] Maintenance,02/09/20 10:18:00 EDT, Route to Pharmacy Electronically, [facility], 165, cm, 02/08/20 19:47:00 EDT, Height, 104.5, kg, 02/07/20 8:15:00 EDT,... Start Date: 02/09/20 Status: Ordered Ventolin HFA 108 mcg/inh inhalation aerosol with adapter 2 puffs = 180 mcg, Inhalation, 4 times a day, PRN for wheezing, # 1 each, 0 Refills, Maintenance, 02/09/20 10:05:00 EDT, Inhaler, [facility], 165, cm, 02/08/20 19:47:00 EDT, Height, 104.5, kg, 02/07/20 8:15:00 EDT, Dry Weight Start Date: 02/09/20 Stop Date: 03/10/20 Status: Ordered verapamil 240 mg/12 hours oral tablet, extended release 1 tablet = 240 mg, By Mouth, Daily at bedtime, # 30 tablet, 0 Refills, Maintenance, 02/09/20 10:14:00 EDT, SR Tablet, [facility], 165, cm, 02/08/20 19:47:00 EDT, Height, [...] 3 Oxygen Saturation [94-100 %] 98 % (08/04/20 12:48 PM) 100 % (08/04/20 5:13 AM) Pulse Rate [55-90 bpm] 87 bpm (08/04/20 12:48 PM) 77 bpm (08/04/20 9:27 AM) 84 bpm (08/04/20 5:13 AM) Blood Pressure [90-138/55-84 mm Hg] 139/81mm Hg *H* (08/04/20 12:48 PM) 136/88mm Hg (08/04/20 9:30 AM) 136/88mm Hg (08/04/20 9:27 AM) Respiratory Rate [16-30 br/min] 16 br/min (08/04/20 12:48 PM) 18 br/min (08/04/20 5:13 AM) Temperature [96.8-100.4 DegF] 97.9 DegF (08/04/20 5:13 AM) Mode of Delivery (Oxygen) Room air (08/04/20 12:48 PM) Room air (08/04/20 5:13 AM) Blood pressure sites Arm, right (08/04/20 5:13 AM) Temperature Route Oral (08/04/20 5:13 AM) Social History Social History Type Response Smoking Status 10 or more cigarette s (1/2 pack or more)/day in last 30 days; Use: smokes 1 pack a day entered on: 05/10/19 Sex
--- OUTSIDE RECORDS SUMMARY | 2023-07-16 14:46 | XMS_ITS | Continuity of Care Document ---
Author Name Unknown Organization [facility] ter Address [address] [place] [id number]- Care Team Providers Care Development Spec Name Role Phone Maribel Marquez NP Primary Care Physician [phone] Encounter [facility] Date(s): 03/19/23 - 03/19/[address] [address]- Encounter Diagnosis Fall(Final) - 03/19/23 Contusion of right hip(Final) - 03/19/23 Discharge Disposition: A-D/C Home Attending Physician: Cara Miranda MD Admitting Physician: Cara Miranda MD Referring Physician: Not on Staff, Referring [...] 10:33:00 EST, Inhaler, Route to Pharmacy Electronically, [id number]_[id number], [facility], 163, cm, 11/16/22 9:43:00 EST, Height, 97.3,... Start Date: 11/16/22 Status: Ordered atorvastatin 10 mg oral tablet 1 tablet = 10 mg, By Mouth, Daily at bedtime, # 30 tablet, 0 Refills, Maintenance, 11/16/22 10:33:00 EST, Tablet, [facility], Partial fill upon patient request if [...] 11/16/22 10:33:00 EST, Route to Pharmacy Electronically, [facility], Partial fill upon patientrequest if the [...] 0 Refills, Maintenance, 11/16/22 10:33:00 EST, Tablet, [facility], Partial fill upon patient request if [...] 11/16/22 10:34:00 EST, Route to Pharmacy Electronically, [facility], Partial fill upon patient request if the prescription is for a schedule II opioid d... Start Date: 11/16/22 Stop Date: 08/13/23 Status: Ordered FLUoxetine 20 mg oral capsule 80 mg, 4, capsule, By Mouth, Daily in AM, # 120 capsule, Refills 0, Tot. Refills 0, Maintenance, 11/16/22 10:34:00 EST, Route to Pharmacy Electronically, [facility], Partial fill upon patient request if [...] 11/16/22 10:34:00 EST, Route to Pharmacy Electronically, [facility], Partial fill upon patientrequest if the [...] 02/12/23 10:51:00 EDT, Route to Pharmacy Electronically, [facility] [...] 60 tablet, 1 Refills, Maintenance,02/22/23 10:08:00 EDT, [facility], 146, cm, 02/05/23 20:22:00 EDT, [...] 0 Refills, Maintenance, 11/16/22 10:34:00 EST, Tablet, [facility], Partial fill upon patient request if [...] Start Date: 01/06/23 Status: Ordered nystatin topical [id number] u/gm cream 1 application, Topically, 2 times a day, # 15 Gm, 0 Refills, Maintenance, 01/05/23 15:04:00 EDT, Cream, [facility], Partial fill upon patient request if the prescription is for a schedule II opioid drug., 1 application Topically 2 times a da... Start Date: 01/05/23 Status: Ordered nystatin topical [id number] u/gm cream 0 Refills, Maintenance, 01/06/23 18:05:00 [...] Maintenance,11/16/22 10:34:00 EST, Route to Pharmacy Electronically, [facility], Partial fill upon patient request if [...] Exam Date Time Procedure Performing Provider Status 03/19/23 4:15 AM XR Hip w/Pelvis 2-3 View Right Jeremiah Lin; Auth (Verified) Notes: (XR Hip w/Pelvis 2-3 View Right) Reason For Exam: Pain RESULT: XR Hip w/Pelvis 2-3 View Right XR Hip w/Pelvis 2-3 View Right INDICATION: Fall. Was sitting outside smoking and leaned side of chair to pick something up and fell. She did hit her head and right hip. Reason: Pain; Clinical Question(s): Fracture COMPARISON: None. FINDINGS: There is no fracture or dislocation. Minimal osteoarthritis of both hip joints. Faint round density at the right greater trochanter, could represent enthesopathy or calcific tendinopathy. Normal soft tissues. IMPRESSION: No acute fracture or dislocation. I have personally reviewed the images and I agree with this report. WSN: [id number] Ordering Physician: Everardo Mckinley Dictated By: Puja Lin DO Dictated Date/Time: 03/19/23 8:04 am Reviewed By: Julio Méndez MD Signed By: Julio Méndez MD Signed Date/Time: 03/19/23 8:09 am Transcribed By: DAVIS Transcribed Date/Time: 03/19/23 7:56 am Vital Signs Most recent to oldest [Reference Range]: 1 2 3 Height 165 cm (03/19/23 6:07 AM) 165 cm (03/19/23 2:15 AM) 165 cm (03/19/23 1:58 AM) Oxygen Saturation [94-100 %] 98 % (03/19/23 6:07 AM) 100 % (03/19/23 1:58 AM) Pulse Rate [55-90 bpm] 98 bpm *H* (03/19/23 6:07 AM) 98 bpm *H* (03/19/23 1:58 AM) Blood Pressure [90-138/55-84 mm Hg] 131/88mm Hg (03/19/23 6:07 AM) 109/67mm Hg (03/19/23 1:58 AM) Respiratory Rate [16-30 br/min] 20 br/min (03/19/23 6:07 AM) 18 br/min (03/19/23 1:58 AM) Temperature [96.8-100.4 DegF] 97.7 DegF (03/19/23 6:07 AM) 97.9 DegF (03/19/23 1:58 AM) Mode of Delivery (Oxygen) Room air (03/19/23 6:07 AM) Room air (03/19/23 1:58 AM) Blood pressure sites Arm, left (03/19/23 6:07 AM) Temperature Route Oral (03/19/23 6:07 AM) Oral (03/19/23 1:58 AM) Dry Weight 99.5 kg (03/19/23 2:15 AM) 99.5 kg (03/19/23 1:58 AM) Social History Social History Type Response Smoking Status 10 or more cigarette s (1/2 pack or more)/day in last 30 days; Type: Cigarettes; Other: Reports smoking 1/2-1 packs/day, ending on level of stress; Started at age: 25; entered on: 11/18/22 Sex XR Pelvis and Hip - right Views * [facility] , CIS S: TRANSCRIBE Puja Lin DO P: SIGN Julio Méndez MD: VERIFY Event Display: Result: Authored Date: [id number] XR Hip w/Pelvis 2-3 View Right INDICATION: Fall. Was sitting outside smoking and leaned side of chair to pick something up and fell. She did hit her head and right hip. Reason: Pain; Clinical Question(s): Fracture COMPARISON: None. FINDINGS: There is no fracture or dislocation. Minimal osteoarthritis of both hip joints. Faint round density at the right greater trochanter, could represent enthesopathy or calcific tendinopathy. Normal soft tissues. IMPRESSION: No acute fracture or dislocation. I have personally reviewed the images and I agree with this report. WSN: [id number] Ordering Physician: Everardo Mckinley Dictated By: Puja Lin DO Dictated Date/Time: 03/19/23 8:04 am Reviewed By: Julio Méndez MD Signed By: Julio Méndez MD Signed Date/Time: 03/19/23 8:09 am Transcribed By: DAVIS Transcribed Date/Time: 03/19/23 7:56 am Patient Care team information Care Team Personnel [...] Associate Professional Member Role: PCP Address: Address: [address] [place] [id number] Name: Jose Ramirez RN Position: [facility] Role: Primary Care Nurse Address: Address: [address] [facility] [address] [facility] [place] [address]- Name: Parvez Kaba MD Position: [facility] Renal MD Member Role: Lifetime Consulting Physician Address: Address: [address] [place] [address] [facility] [place] [address]- [place] Name: Mirna Paul RN Position: [facility] [...] Villa RN Position: [facility] Hospital Accounting System Expert Member Role: Primary Care Nurse Name: Cara Miranda MD Position: [facility] ED Medicine MD Member Role: Admitting Physician Address: Address: [address] [place] [id number]- Name: Aleena Jean RN Position: [facility] ED RN W/OE and Tasks Member Role: Patient Care Provider Name: Everardo Ortega Position: [facility] Associate Professional Member Role: ED Physician Fruit Canner Address: Address: [address] [place] [address] [place] [address]- Care Team Related Persons Name: JO-ANN ROMANFINAL INSPECTOR BALANCE WHEELINDRA Address: home [address] [place] [address] Name: OILING MACHINE OPERATORGREGG Address: home [address] [place] [address] Name: CARLOS PAZ Address: home [address] [place] [address]
--- OUTSIDE RECORDS SUMMARY | 2023-07-16 14:46 | XMS_ITS | Continuity of Care Document ---
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 Name Role Phone Michelle Norris MD Primary Care Physician Encounter [facility] Date(s): 04/25/20 - 04/26/[address] [address]- [facility] Discharge Disposition: A-D/C Home Attending Physician: Pilo Kuhn MD Admitting Physician: Pilo Kuhn MD Referring Physician: Not on Staff, Referring MD Allergies, Adverse Reactions, Alerts Substance Reaction Severity Status codeine Active lithium 1 Active penicillin Active predniSONE Active sulfa drugs Active Seafood Active Geodon Active 1pt reports [...] 0 Refills, Maintenance, 02/09/20 10:07:00 EDT, Tablet, [facility], 165, cm, 02/08/20 19:47:00 EDT, Height, 104.5, kg, 02/07/20 8:15:00 EDT, Dry Weight Start Date: 02/09/20 Status: Ordered chlorproMAZINE 25 mg oral tablet = 25 mg, By Mouth, 3 times a day, PRN Agitation Anxiety, # 90 tablet, 0 Refills, Maintenance, 02/09/20 10:08:00 EDT, Tablet, [facility], 165, cm, 02/08/20 19:47:00 EDT, Height, 104.5, kg,02/07/20 8:15:00 EDT, Dry Weight Start Date: 02/09/20 Status: Ordered Claritin 10 mg oral tablet 10 mg, 1, tablet, By Mouth, Daily, # 30 tablet, Refills 0, Tot. Refills 0, Maintenance, 02/09/20 10:10:00 EDT, Route to Pharmacy Electronically, [facility], 165, cm, 02/08/20 19:47:00 EDT, Height, 104.5, kg, 02/07/20 8:15:00 EDT, Dry Weight Start Date: 02/09/20 Status: Ordered Colace sodium 100 mg oral capsule 100 mg, 1, capsule, By Mouth, 2 times a day, PRN, # 60 capsule, Refills 0, Tot. Refills 0, Maintenance, Constipation, 02/09/20 10:08:00 EDT, Route to Pharmacy Electronically, [facility], 165, cm, 02/08/20 19:47:00 EDT, Height, 104.5, kg, ... Start Date: 02/09/20 Status: Ordered Flonase 50 mcg/inh nasal spray 1 sprays = 50 mcg, Nares, Both, 2 times a day, # 16 Gm, 0 Refills, Maintenance, 02/09/20 10:09:00 EDT, Nasal [place], [facility], 1 sprays Nares, Both 2 times a day,x30 days, 165, cm, 02/08/20 19:47:00 EDT, Height, 104.5, kg, 02/07/20 8:15:00... Start Date: 02/09/20 Stop Date: 03/10/20 Status: Ordered Flovent HFA 110 mcg/inh inhalation aerosol 2 puffs = 220 mcg, Inhalation, 2 times a day, # 1 each, 0 Refills, Maintenance, 02/09/20 10:06:00 EDT, Aerosol, [facility], 165, cm, 02/08/20 19:47:00 EDT, Height, 104.5, kg, 02/07/20 8:15:00 EDT, Dry Weight Start Date: 02/09/20 Status: Ordered lisinopril 5 mg oral tablet 5 mg, 1, tablet, By Mouth, Daily, # 30 tablet, Refills 0, Tot. Refills 0, Maintenance, 02/09/20 10:10:00 EDT, Route to Pharmacy Electronically, [facility], 165, cm, 02/08/20 19:47:00 EDT, Height, 104.5, kg, 02/07/20 8:15:00 EDT, Dry Weight Start Date: 02/09/20 Status: Ordered montelukast 10 mg oral tablet 10 mg, 1, tablet, By Mouth, Daily, # 30 tablet, Refills 0, Tot. Refills 0, Maintenance, 02/09/20 10:11:00 EDT, Route to Pharmacy Electronically, [facility], 165, cm, 02/08/20 19:47:00 EDT, Height, 104.5, kg, 02/07/20 8:15:00 EDT, Dry Weight Start Date: 02/09/20 Status: Ordered norethindrone 0.35 mg oral tablet 1 tablet = 0.35 mg, By Mouth, Daily, # 30 tablet, 0 Refills, Maintenance, 02/09/20 10:07:00 EDT, Tablet, [facility], 165, cm, 02/08/20 19:47:00 EDT, Height, [...] 9:00:00 EDT, 02/09/20 10:22:00 EDT, REC Powder, [facility], 17 Gm By Mouth Daily,Instr:dissolve in water before taking, 165, cm, 02/08/20 19:47:00... Start Date: 02/09/20 Stop Date: 02/08/21 Status: Ordered prazosin 2 mg oral capsule 2 capsule = 4 mg, By Mouth, Daily at bedtime, # 60 capsule, 1 Refills, Maintenance, 02/09/20 10:12:00 EDT, [facility], 165, cm, 02/08/20 19:47:00 EDT, Height, 104.5, kg, 02/07/20 8:15:00 EDT, Dry Weight Start Date: 02/09/20 Stop Date: 03/08/20 Status: Ordered traZODone 150 mg oral tablet 1 tablet = 150 mg, By Mouth, Daily at bedtime, for sleep, # 30 tablet, 1 Refills, Maintenance, 02/09/20 10:13:00 EDT, Tablet, [facility], 165, cm, 02/08/20 19:47:00 EDT, Height, 104.5, kg, 02/07/20 8:15:00 EDT, Dry Weight Start Date: 02/09/20 Status: Ordered Trileptal 150 mg oral tablet 150 mg, 1, tablet, By Mouth, Daily at bedtime, # 30 tablet, Refills 0, Tot. Refills 0, Maintenance,02/09/20 10:12:00 EDT, Route to Pharmacy Electronically, [facility], 165, cm, 02/08/20 19:47:00 EDT, Height, 104.5, kg, 02/07/20 8:15:00 EDT,... Start Date: 02/09/20 Status: Ordered Trileptal 300 mg oral tablet 300 mg, 1, tablet, By Mouth, Daily at bedtime, # 30 tablet, Refills 0, Tot. Refills 0, Maintenance,02/09/20 10:18:00 EDT, Route to Pharmacy Electronically, [facility], 165, cm, 02/08/20 19:47:00 EDT, Height, 104.5, kg, 02/07/20 8:15:00 EDT,... Start Date: 02/09/20 Status: Ordered Ventolin HFA 108 mcg/inh inhalation aerosol with adapter 2 puffs = 180 mcg, Inhalation, 4 times a day, PRN for wheezing, # 1 each, 0 Refills, Maintenance, 02/09/20 10:05:00 EDT, Inhaler, [facility], 165, cm, 02/08/20 19:47:00 EDT, Height, 104.5, kg, 02/07/20 8:15:00 EDT, Dry Weight Start Date: 02/09/20 Stop Date: 03/10/20 Status: Ordered verapamil 240 mg/12 hours oral tablet, extended release 1 tablet = 240 mg, By Mouth, Daily at bedtime, # 30 tablet, 0 Refills, Maintenance, 02/09/20 10:14:00 EDT, SR Tablet, [facility], 165, cm, 02/08/20 19:47:00 EDT, Height, [...] 3 Oxygen Saturation [94-100 %] 97 % (04/26/20 1:18 AM) 97 % (04/25/20 9:17 PM) 97 % (04/25/20 5:31 PM) Pulse Rate [55-90 bpm] 76 bpm (04/26/20 1:18 AM) 79 bpm (04/25/20 9:17 PM) 94 bpm *H* (04/25/20 5:31 PM) Blood Pressure [90-138/55-84 mm Hg] 143/82mm Hg *H* (04/26/20 1:18 AM) 152/97mm Hg *H* (04/25/20 9:17 PM) 143/97mm Hg *H* (04/25/20 5:31 PM) Respiratory Rate [16-30 br/min] 16 br/min (04/26/20 1:18 AM) 16 br/min (04/25/20 9:17 PM) 20 br/min (04/25/20 5:31 PM) Temperature [96.8-100.4 DegF] 98.5 DegF (04/26/20 1:18 AM) 98.2 DegF (04/25/20 9:17 PM) 98.5 DegF (04/25/20 5:31 PM) Mode of Delivery (Oxygen) Room air (04/26/20 1:18 AM) Room air (04/25/20 9:17 PM) Room air (04/25/20 5:31 PM) Blood pressure sites Arm, right (04/26/20 1:18 AM) Arm, left (04/25/20 5:31 PM) Temperature Route Oral (04/26/20 1:18 AM) Oral (04/25/20 9:17 PM) Oral (04/25/20 5:31 PM) Social History Social History Type Response Smoking Status 10 or more cigarette s (1/2 pack or more)/day in last 30 days; Use: smokes 1 pack a day entered on: 05/10/19 Sex
--- OUTSIDE RECORDS SUMMARY | 2023-07-16 14:46 | XMS_ITS | Continuity of Care Document ---
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 Repairer Name Role Phone Maribel Marquez NP Primary Care Physician [place] [facility] [place] 09/29/21 - 10/29/21 [facility] [address] [place] [address]- Allergies, Adverse Reactions, Alerts Substance Reaction Severity [...] 0 Refills, Maintenance, 06/28/21 10:16:00 EDT, Tablet, [facility], Partial fill upon [...] 0 Refills, Maintenance, 02/09/20 10:08:00 EDT, Tablet, [facility], 165, cm, 02/08/20 19:47:00 EDT, Height, 104.5, kg,02/07/20 8:15:00 EDT, Dry Weight Start Date: 02/09/20 Status: Ordered doxazosin 1 mg oral tablet 3 mg, 3, tablet, By Mouth, Daily at bedtime, # 90 tablet, Refills 0, Tot. Refills 0, Maintenance, 07/22/20 18:41:00 EDT, Route to Pharmacy Electronically, [facility], 163.5, cm, 07/22/20 18:29:00 EDT, Height, [...] 3 Refills, Maintenance, 05/09/21 8:41:00 EDT, Aerosol, [facility], 165, cm, 04/11/21 7:42:00 EDT, Height, 102.6, kg, 02/12/21 12:14:00 EDT, Dry Weight Start Date: 05/09/21 Status: Ordered ibuprofen 600 mg oral tablet 600 mg, 1, tablet, By Mouth, Every 6 hours, PRN, # 120 tablet, Refills 0, Tot. Refills 0, Maintenance, Headache, 08/08/21 7:41:00 EDT, Route to Pharmacy Electronically, [facility], Partial fill upon patient request if the prescription is for... Start Date: 08/08/21 Stop Date: 09/07/21 Status: Ordered lisinopril 5 mg oral tablet 5 mg, 1, tablet, By Mouth, Daily, # 90 tablet, Refills 1, Tot. Refills 1, Maintenance, 05/09/21 8:43:00 EDT, Route to Pharmacy Electronically, [facility], 165, cm, 04/11/21 7:42:00 EDT, Height, 102.6, kg, 02/12/21 12:14:00 EDT, Dry Weight Start Date: 05/09/21 Status: Ordered loratadine 10 mg oral tablet 10 mg, 1, tablet, By Mouth, Daily, # 90 tablet, Refills 3, Tot. Refills 3, Maintenance, 04/11/21 9:38:00 EDT, Route to Pharmacy Electronically, [facility], Partial fill upon patient requestif the [...] each, 1 Refills, Maintenance, 05/09/21 8:43:00 EDT,Tablet, [facility], Partial fill upon patient request if the prescription is for a schedule II opioid drug., 165, cm, 04/11/21 7:42:00 EDT, H... Start Date: 05/09/21 Stop Date: 11/05/21 Status: Ordered montelukast 10 mg oral tablet 10 mg, 1, tablet, By Mouth, Daily, # 90 tablet, Refills 1, Tot. Refills 1, Maintenance, 05/09/21 8:45:00 EDT, Route to Pharmacy Electronically, [facility], 165, cm, 04/11/21 7:42:00 EDT, Height, [...] Gm, 5 Refills, Acute, 05/10/21 11:59:00 EDT, [facility], 15, TAKE 17 GM BY MOUTH [...] 0 Refills, Maintenance, 02/09/20 10:05:00 EDT, Inhaler, [facility], 165, cm, 02/08/20 19:47:00 EDT, Height, 104.5, kg, 02/07/20 8:15:00 EDT, Dry Weight Start Date: 02/09/20 Stop Date: 03/10/20 Status: Ordered verapamil 240 mg/12 hours oral tablet, extended release 1 tablet = 240 mg, By Mouth, Daily at bedtime, # 90 tablet, 1 Refills, Maintenance, 05/09/21 8:45:00 EDT, SR Tablet, [facility], 165, cm, 04/11/21 7:42:00 EDT, Height, [...]
--- OUTSIDE RECORDS SUMMARY | 2023-07-16 14:46 | XMS_ITS | Continuity of Care Document ---
Author Name Unknown Organization [facility] ter Address [address] [place] [id number]- Care Team Providers Care Fine Chemicals Operator Name Role Phone Maribel Marquez NP Primary Care Physician Encounter [facility] [place] Date(s): 12/17/22 - 12/17/[address] [address]- Encounter Diagnosis Suicidal ideation(Final) - 12/17/22 Discharge Disposition: A-D/C Home Attending Physician: Dick Arias MD Admitting Physician: [...] 10:33:00 EST, Inhaler, Route to Pharmacy Electronically, NCPDP_[id number], [facility], 163, cm, 11/16/22 9:43:00 EST, Height, 97.3,... Start Date: 11/16/22 Status: Ordered atorvastatin 10 mg oral tablet 1 tablet = 10 mg, By Mouth, Daily at bedtime, # 30 tablet, 0 Refills, Maintenance, 11/16/22 10:33:00 EST, Tablet, [facility], Partial fill upon patient request if the prescription is for a schedule II opioid drug., 163, cm, 11/16/22 9:43:00... Start Date: 11/16/22 Status: Ordered benztropine 1 mg oral tablet 1 mg, 1, tablet, By Mouth, 2 times a day, # 60 tablet, Refills 0, Tot. Refills 0, Maintenance, 11/16/22 10:33:00 EST, Route to Pharmacy Electronically, [facility], Partial fill upon patientrequest if the prescription is for a schedule II op... Start Date: 11/16/22 Status: Ordered chlorproMAZINE 50 mg oral tablet 1 tablet = 50 mg, By Mouth, 3 times a day, PRN Anxiety, # 90 tablet, 0 Refills, Maintenance, 11/16/22 10:33:00 EST, Tablet, [facility], Partial fill upon patient request if the prescriptionis for a schedule II opioid drug., 163, cm, ... Start Date: 11/16/22 Status: Ordered ferrous sulfate 325 mg oral enteric coated tablet 325 mg, 1, tablet, By Mouth, Daily, # 90 tablet, Refills 2, Tot. Refills 2, Maintenance, 11/16/22 10:34:00 EST, Route to Pharmacy Electronically, [facility], Partial fill upon patient request if the prescription is for a schedule II opioid d... Start Date: 11/16/22 Stop Date: 08/13/23 Status: Ordered FLUoxetine 20 mg oral capsule 80 mg, 4, capsule, By Mouth, Daily in AM, # 120 capsule, Refills 0, Tot. Refills 0, Maintenance, 11/16/22 10:34:00 EST, Route to Pharmacy Electronically, [facility], Partial fill upon patient request if the prescription is for a schedule II... Start Date: 11/16/22 Status: Ordered fluPHENAZine 5 mg oral tablet 5 mg, 1, tablet, By Mouth, 2 times a day, # 60 tablet, Refills 0, Tot. Refills 0, Maintenance, 11/16/22 10:34:00 EST, Route to Pharmacy Electronically, [facility], Partial fill upon patientrequest if the prescription is for a schedule II op... Start Date: 11/16/22 Status: Ordered lisinopril 5 mg oral tablet 5 mg, 1, tablet, By Mouth, Daily, # 30 tablet, Refills 0, Tot. Refills 0, Maintenance, 11/16/22 10:34:00 EST, Route to Pharmacy Electronically, [facility], Partial fill upon patient requestif the prescription is for a schedule II opioid kaela... Start Date: 11/16/22 Status: Ordered metFORMIN 500 mg oral tablet 1 each = 500 mg, By Mouth, 2 times a day, # 60 tablet, 0 Refills, Maintenance, 11/16/22 10:34:00 EST, Tablet, [facility], Partial fill upon patient request if the prescription is for a schedule II opioid drug., 163, cm, 11/16/22 9:43:00 EST,... Start Date: 11/16/22 Status: Ordered mirtazapine 15 mg oral tablet 0.5 tablet = 7.5 mg, By Mouth, Daily at bedtime, # 15 tablet, 0 Refills, Maintenance, 11/16/22 10:34:00 EST, Tablet, [facility], Partial fill upon patient request if the prescription is fora schedule II opioid drug., 163, cm, 11/16/22 9:43:... Start Date: 11/16/22 Status: Ordered montelukast 10 mg oral tablet 10 mg, 1, tablet, By Mouth, Daily at bedtime, # 30 tablet, Refills 0, Tot. Refills 0, Maintenance, 11/16/22 10:34:00 EST, Route to Pharmacy Electronically, [facility], Partial fill upon patient request [...] 11/16/22 10:34:00 EST, Route to Pharmacy Electronically, [facility], Partial fill upon patient request if the prescription is for a schedule... Start Date: 11/16/22 Status: Ordered traZODone 50 mg oral tablet 150 mg, 3, tablet, By Mouth, Daily at bedtime, # 90 tablet, Refills 0, Tot. Refills 0, Maintenance,11/16/22 10:34:00 EST, Route to Pharmacy Electronically, [facility], Partial fill upon patient request if [...] 1 Oxygen Saturation [94-100 %] 100 % (12/17/22 5:33 PM) Pulse Rate [55-90 bpm] 104 bpm *H* (12/17/22 5:33 PM) Blood Pressure [90-138/55-84 mm Hg] 137/ 92mm Hg (12/17/22 5:33 PM) Respiratory Rate [16-30 br/min] 19 br/mi n (12/17/22 5:33 PM) Temperature [96.8-100.4 DegF] 98.2 DegF (12/17/22 5:33 PM) Mode of Delivery (Oxygen) Room air (12/17/22 5:33 PM) Blood pressure sites Arm, right (12/17/22 5:33 PM) Temperature Route Oral (12/17/22 5:33 PM) Social History Social History Type Response Smoking Status 10 or more cigarette s (1/2 pack or more)/day in last 30 days; Type: Cigarettes; Other: Reports smoking 1/2-1 packs/day, ending on level of stress; Started at age: 25; entered on: 11/18/22 Sex Patient Care team information Care Team Personnel Name: Rudi Ruiz RN Position: [facility] ED RN W/OE and Tasks Member Role: Primary Care Nurse Name: Alicja Riggs RN Position: [facility] RN Member Role: Primary Care Nurse Name: Harmony Pagan Position: [facility] RN Member Role: Primary Care Nurse Name: Ros Fu RN Position: [facility] RN Member Role: Primary Care Nurse Name: Hilda Mccabe RN Position: [facility] RN Member Role: Primary Care Nurse Name: Rosana Kearney RN Position: [facility] AMB Nurse Member Role: Primary Care Nurse Name: Wil Flood RN Position: [facility] RN Member Role: Primary Care Nurse Name: Gagandeep Sheldon RN Position: [facility] RN Member Role: Primary Care Nurse Name: Chip Morton Position: [facility] Outreach Member Role: Lifetime Consulting Physician Name: Alba Daily RN Position: [facility] RN Member Role: Primary Care Nurse Name: Maribel Marquez NP Position: [facility] PCO Associate Professional Member Role: PCP Address: Address: [address] [place] [address]- Name: Jose Ramirez RN Position: [facility] RN Member Role: Primary Care Nurse Name: Brittany Butts RN Position: [facility] AMB Nurse Member Role: Primary Care Nurse Name: Pauline Mcadams RN Position: [facility] RN Member Role: Primary Care Nurse Name: aMry Sánchez RN Position: [facility] RN Member Role: Primary Care Nurse Name: Shama Rosado RN Position: [facility] RN Member Role: Primary Care Nurse Name: Jackie Snyder RN Position: [facility] RN Member Role: Primary Care Nurse Name: Jay Burks NP Position: Reference Physician Member Role: Primary Care Nurse Address: Address: [address] [place], [place] [id number] Clinical [facility] [place] [address]- [place] Name: Parvez Kaba MD Position: [facility] Renal MD Member Role: Lifetime Consulting Physician Address: Address: [address] [place] [address] [facility] [place] [address]- [place] Name: Yoana Ledezma RN Position: [facility] RN Member Role: Primary Care Nurse Name: Mirna Paul RN Position: [facility] OB RN Member Role: Primary Care Nurse Name: Latonya Rahman RN Position: [facility] Onco RN Member Role: Primary Care Nurse Name: Viki Gonzalez RN Position: [facility] RN Member Role: Primary Care Nurse Name: Claudia Presley RN Position: [facility] RN Member Role: Primary Care Nurse Name: Iris Villa RN Position: [facility] Hospital Cake Press Operator Member Role: Primary Care Nurse Name: Baljeet Bobo MD Position: [facility] Resident Member Role: ED Resident Address: Address: [address] [place] [address] [place] [address]- [place] Name: Dick Arias MD Position: [facility] ED Medicine MD Member Role: Admitting Physician Address: Address: [address] [place] [address]- [place] Name: Leon Elizondodomenico Position: [facility] ED RN W/OE and Tasks Member Role: Patient Care Provider Name: Hang Tanner Position: [facility] ED [facility] Member Role: Abrasive Grader Helper Care Team Related Persons Name: LISBETH- AUTOMATIC PUNCH PRESS OPERATORINDRA Address: [address] [place] [address] Name: URBAN GARDENING SPECIALISTGREGG Address: [address] [place] [address] Name: CARLOS PAZ Address: [address] [place] [address]
--- OUTSIDE RECORDS SUMMARY | 2023-07-16 14:47 | XMS_ITS | Continuity of Care Document ---
Author Name Unknown Organization [facility] Address [address] [place] [address]- Care Team Providers Care Brief Writer Name Role Phone Maribel Marquez NP Primary Care Physician Encounter [facility] [place] Date(s): 03/09/22 - 04/08/22 [facility] [address] [place] [address]- Allergies, Adverse Reactions, Alerts Substance Reaction Severity [...] Russel rded influenza virus vaccine, inactivated 09/09/15 Rusesl rded influenza virus vaccine, inactivated 07/07/13 Give [...] Judgment Medications atorvastatin 10 mg oral tablet TAKE 1 TABLET BY MOUTH ONCE A DAY Start Date: 04/07/22 Status: Ordered atorvastatin 10 mg oral tablet 1 tablet = 10 mg, By Mouth, Daily, # 90 tablet, 0 Refills, Maintenance, 01/04/22 11:12:00 EDT, [facility], Partial fill upon patient request if the prescription is for a schedule II opioid drug., 165, cm, 12/19/21 10:41:00 EST, Height, 103,... Start Date: 01/04/22 Status: Ordered benztropine 1 mg oral tablet TAKE 1 TABLET TWICE A DAY FOR EPS Start Date: 04/07/22 Status: Ordered benztropine 1 mg oral tablet [...] Status: Ordered chlorproMAZINE 25 mg oral tablet 0 Refills, Maintenance, 04/07/22 20:57:00 EDT, Partial fill upon patient request if the prescription is for a schedule II opioid drug. Start Date: 04/07/22 Status: Ordered chlorproMAZINE 25 mg oral tablet [...] Ordered Flovent HFA 110 mcg/inh inhalation aerosol 0 Refills, Maintenance, 04/07/22 20:57:00 EDT, Partial fill upon patient request if the prescription is for a schedule II opioid drug. Start Date: 04/07/22 Status: Ordered Flovent HFA 110 mcg/inh inhalation aerosol 2 puffs, Inhalation, 2 times a day, # 12 Gm, 2 Refills, [facility], 165, cm, 12/19/21 10:41:00 EST, Height, 103, kg, 11/26/21 8:59:00 EST, Dry Weight Start Date: 12/27/21 Status: Ordered FLUoxetine 40 mg oral capsule 1 capsule = 40 mg, By Mouth, Daily, # 30 capsule, 0 Refills, Maintenance, 04/07/22 20:56:00 EDT, Capsule, Partial fill upon patient request if the prescription is for a schedule II opioid drug. Start Date: 04/07/22 Status: Ordered fluPHENAZine 5 mg oral tablet [...] EST, ; Start Date: 11/08/21 Status: Ordered hydrOXYzine pamoate 50 mg oral capsule 0 Refills, Maintenance, 04/07/22 20:57:00 EDT, Partial fill upon patient request if the prescription is for a schedule II opioid drug. Start Date: 04/07/22 Status: Ordered lisinopril 5 mg oral tablet TAKE 1 TABLET ONCE A DAY Start Date: 04/07/22 Status: Ordered lisinopril 5 mg oral tablet [...] Status: Ordered metFORMIN 500 mg oral tablet TAKE 1 TABLET TWICE A DAY FOR DIABETES Start Date: 04/07/22 Status: Ordered metFORMIN 500 mg oral tablet See Instructions, TAKE 1 EACH BY MOUTH 2 TIMES A DAY, # 60 tablet, 5 Refills, [facility],165, cm, 01/19/22 13:55:00 EDT, Height, 103, kg, 11/26/21 8:59:00 EST, Dry Weight Start Date: 02/03/22 Status: Ordered mirtazapine 7.5 mg oral tablet TAKE 1 TABLET AT BEDTIME FOR MOOD Start Date: 04/07/22 Status: Ordered mirtazapine 7.5 mg oral tablet 1 tablet = 7.5 mg, By Mouth, Daily at bedtime, Maintenance, 11/08/21 12:51:00 EST, ; Start Date: 11/08/21 Status: Ordered montelukast 10 mg oral tablet TAKE 1 TABLET BY MOUTH DAILY Start Date: 04/07/22 Status: Ordered montelukast 10 mg oral tablet 10 mg, 1, tablet, By Mouth, Daily at bedtime, # 90 tablet, Refills 1, Tot. Refills 1, Maintenance, 01/04/22 11:12:00 EDT, Route to Pharmacy Electronically, [facility], 165, cm, 12/19/21 10:41:00 EST, Height, 103, kg, 11/26/21 8:59:00 EST, Start Date: 01/04/22 Status: Ordered Nicotine 2 mg gum 1 each = 2 mg, Chew, Every 2 hours, PRN as needed for smoking cessation, for 4 week(s), # 336 each,1 Refills, Acute 05/19/22 14:46:00 EDT, 03/24/22 14:46:00 EDT, Gum, [facility], Partial fill upon patient request if the prescription is for... Start Date: 03/24/22 Stop Date: 05/19/22 Status: Ordered pantoprazole 40 mg oral delayed release tablet 1 tablet = 40 mg, By Mouth, Daily, # 30 tablet, 0 Refills, Maintenance, 04/07/22 20:56:00 EDT, EC Tablet Start Date: 04/07/22 Status: Ordered pantoprazole 40 mg oral delayed release tablet 1 tablet = 40 mg, By Mouth, Daily, Maintenance, 01/30/22 13:58:00 EDT, EC Tablet Start Date: 01/30/22 Status: Ordered prazosin 1 mg oral capsule 4 mg, 4, capsule, By Mouth, Daily at bedtime, # 120 capsule, Refills 5, Tot. Refills 5, Maintenance, 01/19/22 10:48:00 EDT, Route to Pharmacy Electronically, [facility], Partial fill upon patient request if [...] EST, ; Start Date: 11/08/21 Status: Ordered traZODone 150 mg oral tablet TAKE 1 TABLET AT BEDTIME NEEDED FOR INSOMNIA Start Date: 04/07/22 Status: Ordered verapamil 240 mg/12 hours oral tablet, extended release TAKE 1 TABLET AT BEDTIME FOR CAD/SP CORONARY ARTERY BYPASS GRAFT,HTN Start Date: 04/07/22 Status: Ordered verapamil 240 mg/12 hours oral tablet, extended release 1 tablet = 240 mg, By Mouth, Daily at bedtime, # 90 tablet, 1 Refills, Maintenance, 05/09/21 8:45:00 EDT, SR Tablet, [facility], 165, cm, 04/11/21 7:42:00 EDT, Height, [...]
--- OUTSIDE RECORDS SUMMARY | 2023-07-16 14:47 | XMS_ITS | Continuity of Care Document ---
Author Name Unknown Organization [facility] ter Address [address] [place] [address]- Care Team Providers Care Rehab Director Name Role Phone Maribel Marquez NP Primary Care Physician [place] [facility] [place]03[place]23 - 06/03/[address] [address]- Encounter Diagnosis Suicidal ideation(Final) - 06/03/23 Discharge Disposition: A-D/C Home Attending Physician: Joel [...] each, 5 Refills, Maintenance, 05/22/23 11:32:00 EDT, [facility], Partial fill upon patient request if the prescription is for a schedule II opioid drug., 2 puffs Inhal... Start Date: 05/22/23 Stop Date: 05/22/24 Status: Ordered albuterol CFC free 90 mcg/inh inhalation aerosol 90 mcg, 1, puffs, Inhalation, Every 4 hours, PRN, # 6.7 Gm, Refills 0, Tot. Refills 0, Maintenance,11/16/22 10:33:00 EST, Inhaler, Route to Pharmacy Electronically, NCPDP_[id number], [facility], 163, cm, 11/16/22 9:43:00 EST, Height, 97.3,... Start Date: 11/16/22 Status: Ordered atorvastatin 10 mg oral tablet 1 tablet = 10 mg, By Mouth, Daily at bedtime, # 30 tablet, 0 Refills, Maintenance, 11/16/22 10:33:00 EST, Tablet, [facility], Partial fill upon patient request if [...] 11/16/22 10:33:00 EST, Route to Pharmacy Electronically, [facility], Partial fill upon patientrequest if the [...] 0 Refills, Maintenance, 11/16/22 10:33:00 EST, Tablet, [facility], Partial fill upon patient request if [...] 60 tablet, 1 Refills, Maintenance,02/22/23 10:08:00 EDT, [facility], 146, cm, 02/05/23 20:22:00 EDT, Height, [...] 0 Refills, Maintenance, 11/16/22 10:34:00 EST, Tablet, [facility], Partial fill upon patient request if [...] 11/16/22 10:34:00 EST, Route to Pharmacy Electronically, [facility], Partial fill upon patient request if [...] 11:34:00 EDT, 05/22/23 11:32:00 EDT, ER Tablet, [facility], Partial fill upon patient request if the prescription is for a radha... Start Date: 05/22/23 Stop Date: 05/29/24 Status: Ordered nystatin topical [id number] u/gm cream 1 application, Topically, 2 times a day, # 15 Gm, 0 Refills, Maintenance, 01/05/23 15:04:00 EDT, Cream, [facility], Partial fill upon patient request if the prescription is for a schedule II opioid drug., 1 application Topically 2 times a da... Start Date: 01/05/23 Status: Ordered nystatin topical [id number] u/gm cream 0 Refills, Maintenance, 01/06/23 18:05:00 [...] 11/16/22 10:34:00 EST, Route to Pharmacy Electronically, [facility], Partial fill upon patient request if [...] Maintenance,11/16/22 10:34:00 EST, Route to Pharmacy Electronically, [facility], Partial fill upon patient request if [...] 1 Oxygen Saturation [94-100 %] 98 % (06/03/23 4:38 PM) Pulse Rate [55-90 bpm] 90 bpm (06/03/23 4:38 PM) Blood Pressure [90-138/55-84 mm Hg] 120/ 76mm Hg (06/03/23 4:38 PM) Respiratory Rate [16-30 br/min] 17 br/mi n (06/03/23 4:38 PM) Temperature [96.8-100.4 DegF] 98 DegF (06/03/23 4:38 PM) Mode of Delivery (Oxygen) Room air (06/03/23 4:38 PM) Temperature Route Oral (06/03/23 4:38 PM) Social History Social History Type Response [...] RN Position: [facility] SN RN Member Role: Primary Care Nurse Name: Wil Flood RN Position: [facility] RN Member Role: Primary Care Nurse Name: Gagandeep Sheldon RN Position: [facility] RN Member Role: Primary Care Nurse Name: Alba Daily RN Position: [facility] RN Member Role: Primary Care Nurse Name: Maribel Marquez NP Position: [facility] PCO Associate Professional Member Role: PCP Address: Address: [address] [place] [address]- Name: Jose Ramirez RN Position: [facility] RN Member Role: Primary Care Nurse Name: Beckie CARDOSOBrittany Position: [facility] AMB Nurse Member Role: Primary Care Nurse Name: Pauline Mcadams RN Position: [facility] RN Member Role: Primary Care Nurse Name: Mary Sánchez RN Position: [facility] RN Member Role: Primary Care Nurse Name: Shama Rosado RN Position: [facility] RN Member Role: Primary Care Nurse Name: Jackie Snyder RN Position: [facility] RN Member Role: Primary Care Nurse Name: Kimmie SHEETER OPERATORJay Position: Reference Physician Member Role: Primary Care Nurse Address: Address: [address] [place] [address] [address] Clinical [facility] [place] [address]- [place] Name: Parvez Kaba MD Position: [facility] Renal MD Member Role: Lifetime Consulting Physician Address: Address: [address] [place] [address] [facility] [place] [address]- Name: Mirna Paul RN Position: [facility] Position: [facility] Hospital Computer Field Technician Member Role: Primary Care Nurse Name: Lalit Romo MD Position: [facility] Resident Member Role: ED Resident Address: Address: [address] [place] [address]- Name: Joel Rivera MD Position: [facility] ED Medicine MD Member Role: Admitting Physician Address: Address: [address] [place] [address]- [place] Name: Loni Hays RN Position: [facility] ED RN W/OE and Tasks Member Role: Patient Care Provider Name: Celina Tompkins Position: [facility] ED [facility] Care Team Related Persons Name: JO-ANN ROMANSYS DIRINDRA Address: [address] [place] [address] Name: SUPERVISOR CLAIMSGREGG Address: [address] [place] [address] Name: CARLOS PAZ Address: [address] [place] [address]
--- OUTSIDE RECORDS SUMMARY | 2023-07-16 14:47 | XMS_ITS | Continuity of Care Document ---
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 Start Date: 11/16/22 Status: Ordered atorvastatin 10 mg oral tablet 1 tablet = 10 mg, By Mouth, Daily at bedtime, # 30 tablet, 0 Refills, Maintenance, 11/16/22 10:33:00 EST, Tablet, [facility], Partial fill upon patient request if [...] 0 Refills, Maintenance, 11/16/22 10:33:00 EST, Tablet, [facility], Partial fill upon patient [...] Start Date: 01/06/23 Status: Ordered lactulose 10 gm/15 ml oral syrup 30 mL = 20 Gm, By Mouth, 3 times a day, PRN constipation, for 7 days, # 480 mL, 0 Refills, Acute 02/19/23 0:07:00 EDT, 02/12/23 0:07:00 EDT, Syrup, [facility], Partial fill upon patient request if the prescription is for a schedule II opioid... Start Date: 02/12/23 Stop Date: 02/19/23 Status: Ordered lisinopril 5 mg oral tablet 5 mg, Tablet, By Mouth, 02/11/23 9:00:00 EDT Start Date: 02/11/23 Stop Date: 02/11/23 Status: Completed lisinopril 5 mg oral tablet 5 mg, 1, tablet, By Mouth, Daily, # 30 tablet, Refills 0, Tot. Refills 0, Maintenance, 11/16/22 10:34:00 EST, Route to Pharmacy Electronically, [facility], Partial fill upon patient requestif the [...] 0 Refills, Maintenance, 11/16/22 10:34:00 EST, Tablet, [facility], Partial fill upon patient [...] 0 Refills, Maintenance, 11/16/22 10:34:00 EST, Tablet, [facility], Partial fill upon patient [...] 11/16/22 10:34:00 EST, Route to Pharmacy Electronically, [facility], Partial fill upon patient request if the prescription is for a schedule I... Start Date: 11/16/22 Status: Ordered montelukast 10 mg oral tablet Refills 0, Maintenance, 01/06/23 18:05:00 EDT, Partial fill upon patient request if the prescription is for a schedule II opioid drug. Start Date: 01/06/23 Status: Ordered nystatin topical [id number] u/gm cream 1 application, Topically, 2 times a day, # 15 Gm, 0 Refills, Maintenance, 01/05/23 15:04:00 EDT, Cream, [facility], Partial fill upon patient request if the prescription is for a schedule II opioid drug., 1 application Topically 2 times a da... Start Date: 01/05/23 Status: Ordered nystatin topical [id number] u/gm cream 0 Refills, Maintenance, 01/06/23 18:05:00 [...] 11/16/22 10:34:00 EST, Route to Pharmacy Electronically, [facility], Partial fill upon patient request if [...] Maintenance,11/16/22 10:34:00 EST, Route to Pharmacy Electronically, [facility], Partial fill upon patient request if [...] Exam Date Time Procedure Performing Provider Status 02/11/23 12:40 AM US RUQ Radha Mayes; Auth ( Verified) Notes: (US RUQ) Reason For Exam: Biliary Obstruction RESULT: US RUQ US RUQ History of Present Illness: coming from long-term with SI statements. Hearing voices telling her to kill herself. Discharge from [facility] today. Reason: Biliary Obstruction. Clinical Question(s): Biliary Obstruction. COMPARISON: 11/27/2021 FINDINGS: Liver: Diffusely echogenic parenchyma. No suspicious lesion. Smooth hepatic contour. Main portal vein patent with normal hepatopetal direction of flow. Gallbladder: No gallstones. Normal wall thickness. No pericholecystic fluid. Negative Michael sign. Biliary Tree: No intrahepatic or extrahepatic bile duct dilation is identified. Common duct measures: 0.2 cm. Pancreas: Partially obscured by overlying bowel gas. No abnormality in the visualized portions of the pancreas. Right kidney: 10.7 cm in length. Normal parenchymal echotexture and thickness. No hydronephrosis, stone or mass. IMPRESSION: No evidence of biliary obstruction. Echogenic liver likely representing hepatic steatosis. Results were relayed by Cortext by Dr. Brito to Rafael Aleman MD on 02/11/2023 12:53 AM. I have personally reviewed the images and I agree with this report. WSN: [id number] Ordering Physician: Gino aTi Dictated By: Donnie Brito MD Dictated Date/Time: 02/11/23 4:45 am Reviewed By: Hannah Lynch MD Signed By: Hannah Lynch MD Signed Date/Time: 02/11/23 4:50 am Transcribed By: DAVIS Transcribed Date/Time: 02/11/23 0:54 am Vital Signs Most recent to oldest [Reference Range]: 1 2 3 Oxygen Saturation [94-100 %] 95 % (02/11/23 11:11 AM) 94 % (02/11/23 6:39 AM) 99 % (02/10/23 11:56 PM) Pulse Rate [55-90 bpm] 78 bpm (02/11/23 11:11 AM) 76 bpm (02/11/23 6:39 AM) 84 bpm (02/10/23 11:56 PM) Blood Pressure [90-138/55-84 mm Hg] 112/62mm Hg (02/11/23 11:11 AM) 104/56mm Hg (02/11/23 10:42 AM) 104/56mm Hg (02/11/23 6:39 AM) Respiratory Rate [16-30 br/min] 16 br/min (02/11/23 11:11 AM) 18 br/min (02/11/23 6:39 AM) 18 br/min (02/10/23 11:56 PM) Temperature [96.8-100.4 DegF] 98.6 DegF (02/11/23 11:11 AM) 98.3 DegF (02/11/23 6:39 AM) 98.1 DegF (02/10/23 8:50 PM) Mode of Delivery (Oxygen) Room air (02/11/23 11:11 AM) Room air (02/10/23 11:56 PM) Room air (02/10/23 8:50 PM) Blood pressure sites Arm, right (02/10/23 11:56 PM) Arm, right (02/10/23 8:50 PM) Arm, left (02/10/23 8:46 PM) Temperature Route Oral (02/11/23 11:11 AM) Oral (02/10/23 8:50 PM) Oral (02/10/23 8:46 PM) Social History Social History Type Response Smoking Status 10 or more cigarette s (1/2 pack or more)/day in last 30 days; Type: Cigarettes; Other: Reports smoking 1/2-1 packs/day, ending on level of stress; Started at age: 25; entered on: 11/18/22 Sex EKG study * Event Display: ECG 12-Lead Authored Date: [id number] Please click on pdf link to open report * Event Display: ECG 12-Lead Authored Date: [id number] Ventricular Rate: 86 BPM Atrial Rate: 86 BPM P-R Interval: 178 ms QRS Duration: 82 ms Q-T Interval: 380 ms QTC Calculation(Bazett): 454 ms P Hudson: 42 degrees R Hudson: 49 degrees T Hudson: 50 degrees Normal sinus rhythm Probably normal ekg When compared with ECG of 24-JAN-2023 19:13, No significant change Confirmed by AMY ERNST ([id number]) on 02/11/2023 11:18:07 AM [place]: AMY ERNST Abdomen RUQ * BHSPowerscribe , CIS S: TRANSCRIBE Hannah Lynch MD O: VERIFY Daryl LE, Donnie T: SIGN Event Display: Result: Authored Date: [id number] US RUQ History of Present Illness: coming from long-term with SI statements. Hearing voices telling her to kill herself. Discharge from [facility] today. Reason: Biliary Obstruction. Clinical Question(s): Biliary Obstruction. COMPARISON: 11/27/2021 FINDINGS: Liver: Diffusely echogenic parenchyma. No suspicious lesion. Smooth hepatic contour. Main portal vein patent with normal hepatopetal direction of flow. Gallbladder: No gallstones. Normal wall thickness. No pericholecystic fluid. Negative Michael sign. Biliary Tree: No intrahepatic or extrahepatic bile duct dilation is identified. Common duct measures: 0.2 cm. Pancreas: Partially obscured by overlying bowel gas. No abnormality in the visualized portions of the pancreas. Right kidney: 10.7 cm in length. Normal parenchymal echotexture and thickness. No hydronephrosis, stone or mass. IMPRESSION: No evidence of biliary obstruction. Echogenic liver likely representing hepatic steatosis. Results were relayed by Cortext by Dr. Brito to Rafael Aleman MD on 02/11/2023 12:53 AM. I have personally reviewed the images and I agree with this report. WSN: [id number] Ordering Physician: Gino Tai Dictated By: Donnie Brito MD Dictated Date/Time: 02/11/23 4:45 am Reviewed By: Hannah Lynch MD Signed By: Hannah Lynch MD Signed Date/Time: 02/11/23 4:50 am Transcribed By: DAVIS Transcribed Date/Time: 02/11/23 0:54 am Patient Care team information Care Team [...] Associate Professional Member Role: PCP Address: Address: [address] [place] [id number] Name: Jose Ramirez RN Position: [facility] Role: Primary Care Nurse Address: Address: [address] [facility] [place] [address]- [place] Name: Parvez Kaba MD Position: [facility] Renal MD Member Role: Lifetime Consulting Physician Address: Address: [address] [place] [address] [facility] [place] [address]- [place] Name: Mirna Paul RN Position: [facility] [...] RN Position: [facility] Hospital Rubber Off Member Role: Primary Care Nurse Name: Rudi Ruiz RN Position: [facility] ED RN W/OE and Tasks Member Role: Patient Care Provider Name: Rafael Aleman MD Position: [facility] Resident Member Role: ED Resident Address: Address: [address] [place] [address]- [place] Name: Raysa Girard MD Position: [facility] Resident Member Role: Admitting Physician Address: Address: [address] [place] [address]- Care Team Related Persons Name: JO-ANN ROMANBOX COVERER HANDINDRA Address: [address] [place] [address] Name: RADIATION ENGINEERGREGG Address: [address] [place] [address] Name: CARLOS PAZ Address: home [address] [place] [address]
--- OUTSIDE RECORDS SUMMARY | 2023-07-16 14:47 | XMS_ITS | Continuity of Care Document ---
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 Name Role Phone Maribel Marquez NP Primary Care Physician [phone] Encounter [facility] [place] Date(s): 02/11/21 - 02/11/[address] [address]- Discharge Disposition: A-D/C Walkout Attending Physician: Not on Staff, Attending MD Admitting Physician: Not on Staff, Admitting MD Referring Physician: Not on Staff, Referring [...] 0 Refills, Maintenance, 12/23/20 16:38:00 EST, Tablet, [facility], Partial fill upon patient request if [...] 0 Refills, Maintenance, 02/09/20 10:08:00 EDT, Tablet, [facility], 165, cm, 02/08/20 19:47:00 EDT, Height, 104.5, kg,02/07/20 8:15:00 EDT, Dry Weight Start Date: 02/09/20 Status: Ordered doxazosin 1 mg oral tablet 3 mg, 3, tablet, By Mouth, Daily at bedtime, # 90 tablet, Refills 0, Tot. Refills 0, Maintenance, 07/22/20 18:41:00 EDT, Route to Pharmacy Electronically, [facility], 163.5, cm, 07/22/20 18:29:00 EDT, Height, 102.5, kg, 07/18/20 21:04:00 EDT... Start Date: 07/22/20 Status: Ordered ferrous sulfate 325 mg oral enteric coated tablet 325 mg, 1, tablet, By Mouth, Daily, # 30 tablet, Refills 0, Tot. Refills 0, Maintenance, 12/23/20 15:38:00 EST, Route to Pharmacy Electronically, [facility], Partial fill upon patient request if the prescription is for a schedule II opioid d... Start Date: 12/23/20 Status: Ordered Flovent HFA 110 mcg/inh inhalation aerosol 2 puffs = 220 mcg, Inhalation, 2 times a day, # 1 each, 0 Refills, Maintenance, 12/23/20 15:38:00 EST, Aerosol, [facility], 162, cm, 12/23/20 10:43:00 EST, Height, 122.1, kg, 12/21/20 16:25:00 EST, Dry Weight Start Date: 12/23/20 Status: Ordered Haldol Decanoate decanoate 100 mg/ml injectable solution = 100 mg, Intramuscular, Every 28 days, last dose given on 09/17/2020. Next due 10/15/20., # 1 each, 0Refills, Soft Stop, 07/22/20 18:42:00 EDT, Solution, [facility], 163.5, cm, 07/22/20 18:29:00 EDT, Height, 102.5, kg, 07/18/20 21:04:00 EDT,... Start Date: 07/22/20 Status: Ordered lisinopril 5 mg oral tablet 5 mg, 1, tablet, By Mouth, Daily, # 30 tablet, Refills 0, Tot. Refills 0, Maintenance, 02/09/20 10:10:00 EDT, Route to Pharmacy Electronically, [facility], 165, cm, 02/08/20 19:47:00 EDT, Height, [...] 0 Refills, Maintenance, 12/23/20 16:38:00 EST, Tablet, [facility], Partial fill upon patient request if the prescription is for a schedule II opioid drug., 162, cm, 12/23/20 15:59:00 EST... Start Date: 12/23/20 Stop Date: 01/22/21 Status: Ordered montelukast 10 mg oral tablet 10 mg, 1, tablet, By Mouth, Daily, # 30 tablet, Refills 0, Tot. Refills 0, Maintenance, 02/09/20 10:11:00 EDT, Route to Pharmacy Electronically, [facility], 165, cm, 02/08/20 19:47:00 EDT, Height, 104.5, kg, 02/07/20 8:15:00 EDT, Dry Weight Start Date: 02/09/20 Status: Ordered norethindrone 0.35 mg oral tablet 1 tablet = 0.35 mg, By Mouth, Daily, # 30 tablet, 0 Refills, Maintenance, 02/09/20 10:07:00 EDT, Tablet, [facility], 165, cm, 02/08/20 19:47:00 EDT, Height, [...] Refills, Maintenance, 12/23/20 15:38:00 EST, REC Powder, [facility], Partial fill upon patient request if [...] 0 Refills, Maintenance, 02/09/20 10:05:00 EDT, Inhaler, [facility], 165, cm, 02/08/20 19:47:00 EDT, Height, 104.5, kg, 02/07/20 8:15:00 EDT, Dry Weight Start Date: 02/09/20 Stop Date: 03/10/20 Status: Ordered verapamil 240 mg/12 hours oral tablet, extended release 1 tablet = 240 mg, By Mouth, Daily at bedtime, # 30 tablet, 0 Refills, Maintenance, 02/09/20 10:14:00 EDT, SR Tablet, [facility], 165, cm, 02/08/20 19:47:00 EDT, Height, [...] Exam Date Time Procedure Performing Provider Status 02/11/21 2:34 PM Chest 2 Views Frontal and Lat Valarie Bledsoe; Ralph (Verified) Notes: (Chest 2 Views Frontal and Lat) Reason For Exam: Chest Pain;Other: RESULT: Chest 2 Views Frontal and Lat Chest 2 Views Frontal and Lat Hx of Present Illness: Pt reports that she woke at 0800 with sharp , constant , left ant. chest discomfort. Pain rates 8 10 and is said to worsen with deep breaths and with movement. no sob, but pain with breathing; no n v; no diaphoresis. no lower ext edema or calf pain; Reason: Other:; Chest Pain; Clinical Question(s): Other: COMPARISON: Chest radiograph dated 10/16/2020 FINDINGS: LINES AND TUBES: None. LUNGS AND PLEURA: Clear lungs. Normal pulmonary vascularity. No pleural effusion. No pneumothorax. HEART, MEDIASTINUM AND HENRY: Heart is normal in size. Normal upper mediastinal and hilar contour. BONES AND SOFT TISSUES: No acute abnormality. IMPRESSION: No acute abnormality. WSN: [id number] Ordering Physician: Nathan Dukes MD Dictated By: Shelly Cooper MD Dictated Date/Time: 02/11/21 2:36 pm Reviewed By: Shelly Cooper MD Signed By: Shelly Cooper MD Signed Date/Time: 02/11/21 2:36 pm Transcribed By: DAVIS Transcribed Date/Time: 02/11/21 2:35 pm Vital Signs Most recent to oldest [Reference Range]: 1 Oxygen Saturation [94-100 %] 97 % (02/11/21 2:00 PM) Pulse Rate [55-90 bpm] 100 bpm *H* (02/11/21 2:00 PM) Blood Pressure [90-138/55-84 mm Hg] 139/ 75mm Hg *H* (02/11/21 2:00 PM) Respiratory Rate [16-30 br/min] 18 br/mi n (02/11/21 2:00 PM) Temperature [96.8-100.4 DegF] 98.9 DegF (02/11/21 2:00 PM) Mode of Delivery (Oxygen) Room air (02/11/21 2:00 PM) Temperature Route Oral (02/11/21 2:00 PM) Social History Social History Type Response Smoking Status 10 or more cigarette s (1/2 pack or more)/day in last 30 days; Type: Cigarettes; Other: Reports smoking 1/2-1 packs/day, ending on level of stress; Started at age: 25; entered on: 12/31/20 Sex
--- OUTSIDE RECORDS SUMMARY | 2023-07-16 14:47 | XMS_ITS | Continuity of Care Document ---
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 Name Role Phone Maribel Marquez NP Primary Care Physician [phone] [place] [facility] [place] 08/08[place] - 08/15/21 [facility] [address] [place] [address]- Encounter Diagnosis Fungal rash of torso(Discharge Diagnosis) - 08/08/21 Borderline personality disorder(Discharge Diagnosis) - 08/08/21 Headache(Discharge Diagnosis) - 08/08/21 Attending Physician: Maribel Marquez NP Allergies, Adverse Reactions, Alerts Substance Reaction Severity Status codeine Active penicillin Active Macrobid Active Geodon Active lithium 1 Active predniSONE Active sulfa [...] 0 Refills, Maintenance, 06/28/21 10:16:00 EDT, Tablet, [facility], Partial fill upon [...] 0 Refills, Maintenance, 02/09/20 10:08:00 EDT, Tablet, [facility], 165, cm, 02/08/20 19:47:00 EDT, Height, 104.5, kg,02/07/20 8:15:00 EDT, Dry Weight Start Date: 02/09/20 Status: Ordered doxazosin 1 mg oral tablet 3 mg, 3, tablet, By Mouth, Daily at bedtime, # 90 tablet, Refills 0, Tot. Refills 0, Maintenance, 07/22/20 18:41:00 EDT, Route to Pharmacy Electronically, [facility], 163.5, cm, 07/22/20 18:29:00 EDT, Height, [...] 3 Refills, Maintenance, 05/09/21 8:41:00 EDT, Aerosol, [facility], 165, cm, 04/11/21 7:42:00 EDT, Height, 102.6, kg, 02/12/21 12:14:00 EDT, Dry Weight Start Date: 05/09/21 Status: Ordered Haldol Decanoate decanoate 100 mg/ml injectable solution = 100 mg, Intramuscular, Every 28 days, last dose given on 09/17/2020. Next due 10/15/20., # 1 each, 0Refills, Soft Stop, 07/22/20 18:42:00 EDT, Solution, [facility], 163.5, cm, 07/22/20 18:29:00 EDT, Height, 102.5, kg, 07/18/20 21:04:00 EDT,... Start Date: 07/22/20 Status: Ordered ibuprofen 600 mg oral tablet 600 mg, 1, tablet, By Mouth, Every 6 hours, PRN, # 120 tablet, Refills 0, Tot. Refills 0, Maintenance, Headache, 08/08/21 7:41:00 EDT, Route to Pharmacy Electronically, [facility], Partial fill upon patient request if the prescription is for... Start Date: 08/08/21 Stop Date: 09/07/21 Status: Ordered lisinopril 5 mg oral tablet 5 mg, 1, tablet, By Mouth, Daily, # 90 tablet, Refills 1, Tot. Refills 1, Maintenance, 05/09/21 8:43:00 EDT, Route to Pharmacy Electronically, [facility], 165, cm, 04/11/21 7:42:00 EDT, Height, 102.6, kg, 02/12/21 12:14:00 EDT, Dry Weight Start Date: 05/09/21 Status: Ordered loratadine 10 mg oral tablet 10 mg, 1, tablet, By Mouth, Daily, # 90 tablet, Refills 3, Tot. Refills 3, Maintenance, 04/11/21 9:38:00 EDT, Route to Pharmacy Electronically, [facility], Partial fill upon patient requestif the [...] each, 1 Refills, Maintenance, 05/09/21 8:43:00 EDT,Tablet, [facility], Partial fill upon patient request if the prescription is for a schedule II opioid drug., 165, cm, 04/11/21 7:42:00 EDT, H... Start Date: 05/09/21 Stop Date: 11/05/21 Status: Ordered montelukast 10 mg oral tablet 10 mg, 1, tablet, By Mouth, Daily, # 90 tablet, Refills 1, Tot. Refills 1, Maintenance, 05/09/21 8:45:00 EDT, Route to Pharmacy Electronically, [facility], 165, cm, 04/11/21 7:42:00 EDT, Height, 102.6, kg, 02/12/21 12:14:00 EDT, Dry Weight Start Date: 05/09/21 Status: Ordered naltrexone 50 mg oral tablet 0 Refills, Maintenance, 05/04/21 9:26:00 EDT, Partial fill upon patient request if the prescriptionis for a schedule II opioid drug. Start Date: 05/04/21 Status: Ordered nystatin topical [id number] u/gm cream 1 application, Topically, 2 times a day, for 21 days, Apply to rash under breasts, # 30 Gm, 0 Refills, Acute 08/29/21 7:41:00 EST, 08/08/21 7:41:00 EDT, Cream, [facility], Partial fill uponpatient request if the prescription is for a schedu... Start Date: 08/08/21 Stop Date: 08/29/21 Status: Ordered pantoprazole 40 mg oral delayed [...] Gm, 5 Refills, Acute, 05/10/21 11:59:00 EDT, [facility], 15, TAKE 17 GM BY MOUTH [...] 0 Refills, Maintenance, 02/09/20 10:05:00 EDT, Inhaler, [facility], 165, cm, 02/08/20 19:47:00 EDT, Height, 104.5, kg, 02/07/20 8:15:00 EDT, Dry Weight Start Date: 02/09/20 Stop Date: 03/10/20 Status: Ordered verapamil 240 mg/12 hours oral tablet, extended release 1 tablet = 240 mg, By Mouth, Daily at bedtime, # 90 tablet, 1 Refills, Maintenance, 05/09/21 8:45:00 EDT, SR Tablet, [facility], 165, cm, 04/11/21 7:42:00 EDT, Height, [...] Effective Dates Health Status Clinical Service Informant Fungal rash of torso Discharge Diagnosis 08/08/21 Borderline personality disorder Discharge Diagnosis 08/08/21 Headache Discharge Diagnosis 08/08/21 Vital Signs Most recent to oldest [Reference Range]: 1 Height 165 cm (08/05/21 2:10 PM) Weight 99.09 kg (08/05/21 2:10 PM) Body Mass Index [18.5-24.99] 36.4 *>HHI* (08/05/21 2:10 PM) Blood pressure sites Arm, left (08/05/21 2:10 PM) Weight Obtained Via Patient/family state d (08/05/21 2:10 PM) Social History Social History Type Response Smoking Status 10 or more cigarette s (1/2 pack or more)/day in last 30 days; Type: Cigarettes; Other: Reports smoking 1/2-1 packs/day, ending on level of stress; Started at age: 25; entered on: 12/31/20 Sex
--- OUTSIDE RECORDS SUMMARY | 2023-07-16 14:47 | XMS_ITS | Continuity of Care Document ---
Author Name Unknown Organization [facility] ter Address [address] [place] [address]- Care Team Providers Care Jet Ski Mechanic Name Role Phone Maribel Marquez NP Primary Care Physician [place] [facility] [place] 10/04/22 - 10/04/[address] [address]- Encounter Diagnosis Self-cutting of wrist(Final) - 10/04/22 Depression(Final) - 10/04/22 Suicidal ideation(Final) - 10/04/22 Discharge Disposition: A-D/C Home Attending Physician: Nini Patel MD Admitting Physician: Nini Patel MD Referring Physician: Not on Staff, Referring [...] tablet, 1 Refills, Maintenance, 07/24/22 15:17:00 EDT, [facility], 165.2, cm, 07/19/22 10:30:00 EDT, Height, [...] a day, # 12 Gm, 1 Refills, [facility], 162, cm, 03/20/22 19:50:00 EDT, Height, [...] 07/21/22 14:07:00 EDT, Route to Pharmacy Electronically, [facility], Partial fill upon patient requestif the prescription is for a schedule II opioid kaela... Start Date: 07/21/22 Stop Date: 04/17/23 Status: Ordered metFORMIN 500 mg oral tablet See Instructions, TAKE 1 EACH BY MOUTH 2 TIMES A DAY, # 60 tablet, 5 Refills, 08/07/22 10:55:00 EDT, [facility], 165.2, cm, 07/19/22 10:30:00 EDT, Height, [...] 10/04/22 15:29:00 EST, Route to Pharmacy Electronically, [facility], 157, cm, 10/01/22 6:31:00 EST, Height, [...] 01/19/22 10:48:00 EDT, Route to Pharmacy Electronically, [facility], Partial fill upon patient request if the prescription is for a schedule... Start Date: 01/19/22 Status: Ordered ProAir HFA 90 mcg/inh inhalation aerosol 2 puffs, Inhalation, 4 times a day, PRN as needed for wheezing, # 6.7 Gm, 1 Refills, Maintenance, 06/23/22 16:17:00 EDT, Aerosol, [facility], Partial fill upon patient request if [...] 07/28/22 7:45:00 EDT, Route to Pharmacy Electronically, [facility], 165.2, cm, 07/19/22 10:30:00 EDT, Height, [...] Refills, Maintenance, 05/09/21 8:45:00 EDT, SR Tablet, [facility], 165, cm, 04/11/21 7:42:00 EDT, Height, [...] 2 Oxygen Saturation [94-100 %] 100 % (10/04/22 6:39 PM) 100 % (10/04/22 4:50 PM) Pulse Rate [55-90 bpm] 88 bpm (10/04/22 6:39 PM) 92 bpm *H* (10/04/22 4:50 PM) Blood Pressure [90-138/55-84 mm Hg] 142/ 79mm Hg *H* (10/04/22 6:39 PM) 156/70mm Hg *H* (10/04/22 4:50 PM) Respiratory Rate [16-30 br/min] 14 br/mi n *L* (10/04/22 6:39 PM) 16 br/min (10/04/22 4:50 PM) Temperature [96.8-100.4 DegF] 98.0 DegF (10/04/22 4:50 PM) Mode of Delivery (Oxygen) Room air (10/04/22 6:39 PM) Room air (10/04/22 4:50 PM) Temperature Route Oral (10/04/22 4:50 PM) Social History Social History Type Response Smoking Status 10 or more cigarette s (1/2 pack or more)/day in last 30 days; Other: 1PPD; entered on: 07/19/22 Sex Note * Harmony Ng DO: PERFORM Event Display: Patient Education Leaflets Authored Date: Depression Relapse ?? 262 Depression Relapse ?? You should contact your physician if you experience any of the following: thoughts of suicide, thoughts of hurting yourself or someone else, feelings of hopelessness or despair, disturbances in unusual sleep patterns, change in appetite, thoughts of suicide, difficulty concentrating. ?? You should contact your physician if you experience any of the following: isolating or withdrawing from friends and/or family, losing interest in unusual activities, loss of energy, unmanageable anxiety. ?? Patient Care team information Care Team Personnel Name: Rudi Ruiz RN Position: [facility] ED RN W/OE and Tasks Member Role: Primary Care Nurse Name: Alicja Riggs RN Position: S RN Member Role: Primary Care Nurse Name: Ros Fu RN Position: [facility] RN Member Role: Primary Care Nurse Name: Hilda Mccabe RN Position: [facility] RN Member Role: Primary Care Nurse Name: Rosana Kearney RN Position: [facility] AMB Nurse Member Role: Primary Care Nurse Name: Wil Flood RN Position: [facility] RN Member Role: Primary Care Nurse Name: Gagandeep Sheldon RN Position: [facility] RN Member Role: Primary Care Nurse Name: Chip Morton Position: [facility] Outreach Member Role: Lifetime Consulting Physician Name: Alba Daily RN Position: [facility] RN Member Role: Primary Care Nurse Name: Maribel Marquez NP Position: [facility] PCO Associate Professional Member Role: PCP Address: Address: [address] [place] [id number]- Name: Jose Ramirez RN Position: [facility] RN Member Role: Primary Care Nurse Name: Brittany Butts RN Position: [facility] AMB Nurse Member Role: Primary Care Nurse Name: Mary Sánchez RN Position: [facility] RN Member Role: Primary Care Nurse Name: Shama Rosado RN Position: [facility] RN Member Role: Primary Care Nurse Name: Jackie Snyder RN Position: [facility] RN Member Role: Primary Care Nurse Name: Jay Burks NP Position: Reference Physician Member Role: Primary Care Nurse Address: Address: [address] [place] [address] Clinical & [place] [address]- Name: Parvez Kaba MD Position: [facility] Renal MD Member Role: Lifetime Consulting Physician Address: Address: [address] [place] [address] [facility] [place] [address]- Name: Yoana Ledezma RN Position: [facility] RN Member Role: Primary Care Nurse Name: Mirna Paul RN Position: [facility] OB RN Member Role: Primary Care Nurse Name: Latonya Rahman RN Position: [facility] Onco RN Member Role: Primary Care Nurse Name: Claudia Presley RN Position: [facility] RN Member Role: Primary Care Nurse Name: Iris Villa RN Position: [facility] Hospital Spring Setter Member Role: Primary Care Nurse Name: Nini Patel MD Position: [facility] ED Medicine MD Member Role: Admitting Physician Address: Address: [address] [place] [address] [place] [address]- [place] Name: Aleena Jean RN Position: [facility] ED RN W/OE and Tasks Member Role: Patient Care Provider Name: Snow Locke Position: [facility] [place] [facility] Name: Harmony Ng DO Position: [facility] Resident Member Role: ED Resident Address: Address: [address] [place] [address]- Care Team Related Persons Name: LISBETH- POWDER SHOVELERINDRA Address: [address] [place] [address] Name: CLERICAL INVESTIGATORGREGG Address: [address] [place] [address] Name: CARLOS PAZ Address: [address] [place] [address]
--- OUTSIDE RECORDS SUMMARY | 2023-07-16 14:47 | XMS_ITS | Continuity of Care Document ---
Author Name Unknown Organization [facility] ter Address [address] [place] [address]- Care Team Providers Care Finance And Administration Manager Name Role Phone Maribel Marquez NP Primary Care Physician [phone] Encounter [facility] [place] Date(s): 04/02/23 - 04/03/[address] [address]- Discharge Disposition: A-D/C Walkout Attending Physician: Not [...] 10:33:00 EST, Inhaler, Route to Pharmacy Electronically, [id number], [facility], 163, cm, 11/16/22 9:43:00 EST, Height, 97.3,... Start Date: 11/16/22 Status: Ordered atorvastatin 10 mg oral tablet 1 tablet = 10 mg, By Mouth, Daily at bedtime, # 30 tablet, 0 Refills, Maintenance, 11/16/22 10:33:00 EST, Tablet, [facility], Partial fill upon patient request if [...] 11/16/22 10:33:00 EST, Route to Pharmacy Electronically, [facility], Partial fill upon patientrequest if the [...] 0 Refills, Maintenance, 11/16/22 10:33:00 EST, Tablet, [facility], Partial fill upon patient request if [...] 11/16/22 10:34:00 EST, Route to Pharmacy Electronically, [facility], Partial fill upon patient request if the prescription is for a schedule II opioid d... Start Date: 11/16/22 Stop Date: 08/13/23 Status: Ordered FLUoxetine 20 mg oral capsule 80 mg, 4, capsule, By Mouth, Daily in AM, # 120 capsule, Refills 0, Tot. Refills 0, Maintenance, 11/16/22 10:34:00 EST, Route to Pharmacy Electronically, [facility], Partial fill upon patient request if [...] 11/16/22 10:34:00 EST, Route to Pharmacy Electronically, [facility], Partial fill upon patientrequest if the [...] 60 tablet, 1 Refills, Maintenance,02/22/23 10:08:00 EDT, [facility], 146, cm, 02/05/23 20:22:00 EDT, Height, [...] 0 Refills, Maintenance, 11/16/22 10:34:00 EST, Tablet, [facility], Partial fill upon patient request if [...] 0 Refills, Maintenance, 11/16/22 10:34:00 EST, Tablet, [facility], Partial fill upon patient request if [...] 11/16/22 10:34:00 EST, Route to Pharmacy Electronically, [facility], Partial fill upon patient request if the prescription is for a schedule I... Start Date: 11/16/22 Status: Ordered montelukast 10 mg oral tablet Refills 0, Maintenance, 01/06/23 18:05:00 EDT, Partial fill upon patient request if the prescription is for a schedule II opioid drug. Start Date: 01/06/23 Status: Ordered nystatin topical [id number] u/gm cream 1 application, Topically, 2 times a day, # 15 Gm, 0 Refills, Maintenance, 01/05/23 15:04:00 EDT, Cream, [facility], Partial fill upon patient request if the prescription is for a schedule II opioid drug., 1 application Topically 2 times a da... Start Date: 01/05/23 Status: Ordered nystatin topical [id number] u/gm cream 0 Refills, Maintenance, 01/06/23 18:05:00 [...] Maintenance,11/16/22 10:34:00 EST, Route to Pharmacy Electronically, [facility], Partial fill upon patient request if [...] Most recent to oldest [Reference Range]: 1 Weight 99.0 kg (04/02/23 6:55 PM) Oxygen Saturation [94-100 %] 95 % (04/02/23 6:55 PM) Pulse Rate [55-90 bpm] 109 bpm *H* (04/02/23 6:55 PM) Blood Pressure [90-138/55-84 mm Hg] 124/ 78mm Hg (04/02/23 6:55 PM) Respiratory Rate [16-30 br/min] 18 br/mi n (04/02/23 6:55 PM) Temperature [96.8-100.4 DegF] 98.5 DegF (04/02/23 6:55 PM) Mode of Delivery (Oxygen) Room air (04/02/23 6:55 PM) Blood pressure sites Arm, right (04/02/23 6:55 PM) Temperature Route Oral (04/02/23 6:55 PM) Weight Obtained Via Pediatric scale (04/02/23 6:55 PM) Social History Social History Type Response [...] Associate Professional Member Role: PCP Address: Address: [address] [place] [id number]- Name: Jose Ramirez RN Position: [facility] [...] Role: Primary Care Nurse Address: Address: [address] [place] [address] Clinical & [place] [address]- [place] Name: Parvez Kaba MD Position: [facility] Renal MD Member Role: Lifetime Consulting Physician Address: Address: [address] [place] [address] [facility] [place] [address]- [place] Name: Mirna Paul RN Position: [facility] [...] Villa RN Position: [facility] Hospital Helper/Driver Member Role: Primary Care Nurse Care Team Related Persons Name: LISBETH- RAILROAD FIRERINDRA Address: [address] [place] [address] Name: OR MANAGERGREGG Address: [address] [place] [address] Name: CARLOS PAZ Address: home [address] [place] [address]
--- OUTSIDE RECORDS SUMMARY | 2023-07-16 14:47 | XMS_ITS | Continuity of Care Document ---
Author Name Unknown Organization [facility] ter Address [address] [place] [address]- Care Team Providers Care Lawn Mower Name Role Phone Maribel Marquez NP Primary Care Physician [phone] Encounter [facility] [place] Date(s): 07/16/22 - 07/16/[address] [address]- Encounter Diagnosis Auditory hallucinations(Final) - 07/16/22 Discharge Disposition: A-D/C Home Attending Physician: Nathan Jhaveri DO Admitting Physician: [...] tablet, 0 Refills, Maintenance, 01/04/22 11:12:00 EDT, [facility], Partial fill upon patient request if [...] 04/11/21 9:22:00 EDT, Route to Pharmacy Electronically, [facility], Partial fill upon patient request if the prescription is for a schedule II opioid drCheyanne. Start Date: 04/11/21 Stop Date: 01/06/22 Status: Ordered Flovent HFA 110 mcg/inh inhalation aerosol 2 puffs, Inhalation, 2 times a day, # 12 Gm, 1 Refills, [facility], 162, cm, 03/20/22 19:50:00 EDT, Height, [...] A DAY, # 60 tablet, 5 Refills, [facility],165, cm, 01/19/22 13:55:00 EDT, Height, 103, [...] 01/04/22 11:12:00 EDT, Route to Pharmacy Electronically, [facility], 165, cm, 12/19/21 10:41:00 EST, Height, [...] 01/19/22 10:48:00 EDT, Route to Pharmacy Electronically, [facility], Partial fill upon patient request if the prescription is for a schedule... Start Date: 01/19/22 Status: Ordered ProAir HFA 90 mcg/inh inhalation aerosol 2 puffs, Inhalation, 4 times a day, PRN as needed for wheezing, # 6.7 Gm, 1 Refills, Maintenance, 06/23/22 16:17:00 EDT, Aerosol, [facility], Partial fill upon patient request if [...] 06/23/22 16:16:00 EDT, Route to Pharmacy Electronically, [facility], Partial fill upon los... Start Date: [...] Refills, Maintenance, 05/09/21 8:45:00 EDT, SR Tablet, [facility], 165, cm, 04/11/21 7:42:00 EDT, Height, 102.6, kg, 02/12/21 12:14:00 EDT, Dry Weight Start Date: 05/09/21 Status: Ordered Problem List Condition Confirmation Course Effective Dates Status H ealth Status Informant Asthma Confirmed Active Borderline personality disorder Confirmed Active Chronic abdominal pain Confirmed Active Chronic post-traumatic stress disorder (PTSD) Confirmed Active COVID-19 1 Confirmed 03/20/22 Active COVID-19 2 Confirmed 04/08/22 Active Depression Confirmed Active GERD (gastroesophageal reflux disease) Confirmed Active Hyperlipidemia NOS Confirmed Active Hypertension Confirmed Active Anemia, iron deficiency Confirmed Active Nicotine dependence Confirmed Active Obese class II Confirmed Active Depression, major, recurrent, severe with psychosis Confirmed Active Single major depressive episode Confirmed Active Tobacco dependence Confirmed Active Type 2 diabetes mellitus Confirmed Active 1Problem added by Discern Expert 2Problem added by Discern Expert Vital Signs Most recent to oldest [Reference Range]: 1 2 3 Height 164 cm (07/16/22 8:57 PM) 164 cm (07/16/22 5:56 PM) Weight 96 kg (07/16/22 8:57 PM) 96 kg (07/16/22 5:56 PM) Oxygen Saturation [94-100 %] 98 % (07/16/22 10:15 PM) 99 % (07/16/22 8:57 PM) 95 % (07/16/22 5:55 PM) Pulse Rate [55-90 bpm] 83 bpm (07/16/22 10:15 PM) 80 bpm (07/16/22 8:57 PM) 91 bpm *H* (07/16/22 5:55 PM) Body Mass Index [18.5-24.99 kg/m2] 35.69 kg/m2 *>HHI* (07/16/22 8:57 PM) Blood Pressure [90-138/55-84 mm Hg] 132/95mm Hg (07/16/22 10:15 PM) 139/91mm Hg *H* (07/16/22 8:57 PM) 143/100mm Hg *H* (07/16/22 5:55 PM) Respiratory Rate [16-30 br/min] 18 br/min (07/16/22 10:15 PM) 18 br/min (07/16/22 8:57 PM) 20 br/min (07/16/22 5:55 PM) Temperature [96.8-100.4 DegF] 98.2 DegF (07/16/22 10:15 PM) 97.9 DegF (07/16/22 8:57 PM) 98.3 DegF (07/16/22 5:55 PM) Mode of Delivery (Oxygen) Room air (07/16/22 10:15 PM) Room air (07/16/22 8:57 PM) Room air (07/16/22 5:55 PM) Blood pressure sites Arm, right (07/16/22 10:15 PM) Arm, right (07/16/22 8:57 PM) Arm, right (07/16/22 5:55 PM) Temperature Route Oral (07/16/22 10:15 PM) Oral (07/16/22 8:57 PM) Oral (07/16/22 5:55 PM) Dry Weight 96 kg (07/16/22 8:57 PM) 96 kg (07/16/22 5:56 PM) Social History Social History Type Response Smoking Status 10 or more cigarette s (1/2 pack or more)/day in last 30 days; Type: Cigarettes; Other: Reports smoking 1/2-1 packs/day, ending on level of stress; Started at age: 25; entered on: 12/31/20 Sex Patient Care team information Personnel Name: Maribel Marquez NP Address: Address: [address] [place] [address]
--- OUTSIDE RECORDS SUMMARY | 2023-07-16 14:47 | XMS_ITS | Continuity of Care Document ---
Author Name Unknown Organization [facility] ter Address [address] [place] [address]- Care Team Providers Care Medical Assistant Dermatology Name Role Phone Maribel Marquez NP Primary Care Physician Encounter [facility] Date(s): 12/23/22 - 12/23/[address] [address]- Discharge Disposition: A-D/C Home Attending Physician: Milton Ovalle MD Admitting Physician: [...] 10:33:00 EST, Inhaler, Route to Pharmacy Electronically, [id number]_[id number], [facility], 163, cm, 11/16/22 9:43:00 EST, Height, 97.3,... Start Date: 11/16/22 Status: Ordered atorvastatin 10 mg oral tablet 1 tablet = 10 mg, By Mouth, Daily at bedtime, # 30 tablet, 0 Refills, Maintenance, 11/16/22 10:33:00 EST, Tablet, [facility], Partial fill upon patient request if the prescription is for a schedule II opioid drug., 163, cm, 11/16/22 9:43:00... Start Date: 11/16/22 Status: Ordered benztropine 1 mg oral tablet 1 mg, 1, tablet, By Mouth, 2 times a day, # 60 tablet, Refills 0, Tot. Refills 0, Maintenance, 11/16/22 10:33:00 EST, Route to Pharmacy Electronically, [facility], Partial fill upon patientrequest if the prescription is for a schedule II op... Start Date: 11/16/22 Status: Ordered chlorproMAZINE 50 mg oral tablet 1 tablet = 50 mg, By Mouth, 3 times a day, PRN Anxiety, # 90 tablet, 0 Refills, Maintenance, 11/16/22 10:33:00 EST, Tablet, [facility], Partial fill upon patient request if the prescriptionis for a schedule II opioid drug., 163, cm, ... Start Date: 11/16/22 Status: Ordered ferrous sulfate 325 mg oral enteric coated tablet 325 mg, 1, tablet, By Mouth, Daily, # 90 tablet, Refills 2, Tot. Refills 2, Maintenance, 11/16/22 10:34:00 EST, Route to Pharmacy Electronically, [facility], Partial fill upon patient request if the prescription is for a schedule II opioid d... Start Date: 11/16/22 Stop Date: 08/13/23 Status: Ordered FLUoxetine 20 mg oral capsule 80 mg, 4, capsule, By Mouth, Daily in AM, # 120 capsule, Refills 0, Tot. Refills 0, Maintenance, 11/16/22 10:34:00 EST, Route to Pharmacy Electronically, [facility], Partial fill upon patient request if the prescription is for a schedule II... Start Date: 11/16/22 Status: Ordered fluPHENAZine 5 mg oral tablet 5 mg, 1, tablet, By Mouth, 2 times a day, # 60 tablet, Refills 0, Tot. Refills 0, Maintenance, 11/16/22 10:34:00 EST, Route to Pharmacy Electronically, [facility], Partial fill upon patientrequest if the prescription is for a schedule II op... Start Date: 11/16/22 Status: Ordered lisinopril 5 mg oral tablet 5 mg, 1, tablet, By Mouth, Daily, # 30 tablet, Refills 0, Tot. Refills 0, Maintenance, 11/16/22 10:34:00 EST, Route to Pharmacy Electronically, [facility], Partial fill upon patient requestif the prescription is for a schedule II opioid kaela... Start Date: 11/16/22 Status: Ordered metFORMIN 500 mg oral tablet 1 each = 500 mg, By Mouth, 2 times a day, # 60 tablet, 0 Refills, Maintenance, 11/16/22 10:34:00 EST, Tablet, [facility], Partial fill upon patient request if the prescription is for a schedule II opioid drug., 163, cm, 11/16/22 9:43:00 EST,... Start Date: 11/16/22 Status: Ordered mirtazapine 15 mg oral tablet 0.5 tablet = 7.5 mg, By Mouth, Daily at bedtime, # 15 tablet, 0 Refills, Maintenance, 11/16/22 10:34:00 EST, Tablet, [facility], Partial fill upon patient request if the prescription is fora schedule II opioid drug., 163, cm, 11/16/22 9:43:... Start Date: 11/16/22 Status: Ordered montelukast 10 mg oral tablet 10 mg, 1, tablet, By Mouth, Daily at bedtime, # 30 tablet, Refills 0, Tot. Refills 0, Maintenance, 11/16/22 10:34:00 EST, [facility] Pharmacy Electronically, [facility] 11/16/22 10:34:00 EST, Route to Pharmacy Electronically, [facility], Partial fill upon patient request if the prescription is for a schedule... Start Date: 11/16/22 Status: Ordered traZODone 50 mg oral tablet 150 mg, 3, tablet, By Mouth, Daily at bedtime, # 90 tablet, Refills 0, Tot. Refills 0, Maintenance,11/16/22 10:34:00 EST, Route to Pharmacy Electronically, [facility], Partial fill upon patient request if [...] to oldest [Reference Range]: 1 2 Height 163 cm (12/23/22 2:25 PM) Weight 98 kg (12/23/22 2:25 PM) Oxygen Saturation [94-100 %] 99 % (12/23/22 6:09 PM) 99 % (12/23/22 2:25 PM) Pulse Rate [55-90 bpm] 101 bpm *H* (12/23/22 6:09 PM) 108 bpm *H* (12/23/22 2:25 PM) Body Mass Index [18.5-24.99 kg/m2] 36.89 kg/m2 *>HHI* (12/23/22 2:25 PM) Blood Pressure [90-138/55-84 mm Hg] 133/ 89mm Hg (12/23/22 6:09 PM) 131/97mm Hg (12/23/22 2:25 PM) Respiratory Rate [16-30 br/min] 18 br/mi n (12/23/22 6:09 PM) 18 br/min (12/23/22 2:25 PM) Temperature [96.8-100.4 DegF] 98.8 DegF (12/23/22 6:09 PM) 99.0 DegF (12/23/22 2:25 PM) Mode of Delivery (Oxygen) Room air (12/23/22 6:09 PM) Room air (12/23/22 2:25 PM) Blood pressure sites Arm, left (12/23/22 6:09 PM) Arm, left (12/23/22 2:25 PM) Temperature Route Oral (12/23/22 6:09 PM) Oral (12/23/22 2:25 PM) Weight Obtained Via Patient/family state d (12/23/22 2:25 PM) Social History Social History Type Response Smoking Status 10 or more cigarette s (1/2 pack or more)/day in last 30 days; Type: Cigarettes; Other: Reports smoking 1/2-1 packs/day, ending on level of stress; Started at age: 25; entered on: 11/18/22 Sex Note * Lizett Kahn DO: PERFORM, SIGN, VERIFY Event Display: Patient Education Handout Authored Date: Patient Care team information Care Team Personnel Name: Rudi Ruiz RN Position: [facility] ED RN W/OE and Tasks Member Role: Primary Care Nurse Name: Alicja Riggs RN Position: [facility] RN Member Role: Primary Care Nurse Name: Harmony Pagan Position: [facility] RN Member Role: Primary Care Nurse Name: Ros Fu RN Position: [facility] RN Member Role: Primary Care Nurse Name: Hilda Mccabe RN Position: [facility] RN Member Role: Primary Care Nurse Name: Rosana Kearney RN Position: [facility] SN RN Member Role: Primary Care Nurse Name: Wil Flood RN Position: [facility] RN Member Role: Primary Care Nurse Name: Gagandeep Sheldon RN Position: [facility] RN Member Role: Primary Care Nurse Name: Chip Morton Position: [facility] Outreach Member Role: Lifetime Consulting Physician Name: Alba Daily RN Position: [facility] RN Member Role: Primary Care Nurse Name: Maribel Marquez NP Position: [facility] PCO Associate Professional Member Role: PCP Address: Address: [address] [place] [phone]- [place] Name: Jose Ramirez RN Position: [facility] RN Member Role: Primary Care Nurse Name: Brittany Butts RN Position: [facility] AMB Nurse Member Role: Primary Care Nurse Name: Pauline Mcadams RN Position: [facility] RN Member Role: Primary Care Nurse Name: Mary Sánchez RN Position: [facility] RN Member Role: Primary Care Nurse Name: Shama Rosado RN Position: [facility] RN Member Role: Primary Care Nurse Name: Jackie Snyder RN Position: [facility] RN Member Role: Primary Care Nurse Name: Jay Burks NP Position: Reference Physician Member Role: Primary Care Nurse Address: Address: [address] [place], [place] [id number] Clinical & [place] [address]- [place] Name: Parvez Kaba MD Position: [facility] Renal MD Member Role: Lifetime Consulting Physician Address: Address: [address] [place] [address] [facility] [place] [address]- Name: Yoana Ledezma RN Position: [facility] RN Member Role: Primary Care Nurse Name: Mirna Paul RN Position: [facility] OB RN Member Role: Primary Care Nurse Name: Latonya Rahman RN Position: [facility] Onco RN Member Role: Primary Care Nurse Name: Viki Gonzalez RN Position: [facility] RN Member Role: Primary Care Nurse Name: Claudia Presley RN Position: [facility] RN Member Role: Primary Care Nurse Name: Iris Villa RN Position: [facility] Hospital Music Researcher Member Role: Primary Care Nurse Name: Lizett Kahn DO Position: [facility] Resident Member Role: ED Resident Address: Address: [address] [place] [phone]- [place] Name: Milton Ovalle MD Position: [facility] Resident Member Role: Admitting Physician Address: Address: [address] [place] [address]- Name: Phyllis Siddiqui Position: [facility] ED RN W/OE and Tasks Member Role: Patient Care Provider Care Team Related Persons Name: JO-ANN ROMANASSOCIATE PROFESSOR OF THEOLOGYMILTON Address: [address] [place] [address] Name: PASSENGER CONDUCTORGREGG Address: [address] [place] [address] Name: CARLOS PAZ Address: home [address] [place] [address]
--- OUTSIDE RECORDS SUMMARY | 2023-07-16 14:47 | XMS_ITS | Continuity of Care Document ---
Author Name Unknown Organization [facility] Address [address] [place] [address]- Care Team Providers Care Staff Accountant Name Role Phone Maribel Marquez NP Primary Care Physician Encounter [facility] Date(s): 12/14/21 - 01/13/22 [facility] [address] [place] [address]- Allergies, Adverse Reactions, Alerts Substance Reaction Severity [...] tablet, 0 Refills, Maintenance, 01/04/22 11:12:00 EDT, [facility], Partial fill upon patient request if [...] 07/22/20 18:41:00 EDT, Route to Pharmacy Electronically, [facility], 163.5, cm, 07/22/20 18:29:00 EDT, Height, 102.5, kg, 07/18/20 21:04:00 EDT... Start Date: 07/22/20 Status: Ordered ferrous sulfate 325 mg oral enteric coated tablet 325 mg, 1, tablet, By Mouth, Daily, # 90 tablet, Refills 2, Tot. Refills 2, Maintenance, 04/11/21 9:22:00 EDT, Route to Pharmacy Electronically, [facility], Partial fill upon patient request if the prescription is for a schedule II opioid . Start Date: 04/11/21 Stop Date: 01/06/22 Status: Ordered Flovent HFA 110 mcg/inh inhalation aerosol 2 puffs, Inhalation, 2 times a day, # 12 Gm, 2 Refills, [facility], 165, cm, 12/19/21 10:41:00 EST, Height, [...] 05/09/21 8:43:00 EDT, Route to Pharmacy Electronically, [facility], 165, cm, 04/11/21 7:42:00 EDT, Height, [...] 04/11/21 9:38:00 EDT, Route to Pharmacy Electronically, [facility], Partial fill upon patient requestif the [...] EDT, Tablet Start Date: 07/18/20 Status: Ordered melatonin 10 mg oral tablet 1 tablet = 10 mg, By Mouth, Daily at bedtime, PRN as needed for insomnia, for 90 days, # 90 tablet,0 Refills, Acute 04/04/22 12:34:00 EDT, 01/04/22 12:34:00 EDT, Tablet, [facility], Partial fill upon patient request if the prescription is f... Start Date: 01/04/22 Stop Date: 04/04/22 Status: Ordered metFORMIN 500 mg oral tablet 1 each = 500 mg, By Mouth, 2 times a day, # 180 each, 1 Refills, Maintenance, 05/09/21 8:43:00 EDT,Tablet, [facility], Partial fill upon patient request if [...] 01/04/22 11:12:00 EDT, Route to Pharmacy Electronically, [facility], 165, cm, 12/19/21 10:41:00 EST, Height, 103, kg, 11/26/21 8:59:00 EST, Dry Weight Start Date: 01/04/22 Status: Ordered naltrexone 50 mg oral tablet 0 Refills, Maintenance, 05/04/21 9:26:00 EDT, Partial fill upon patient request if the prescriptionis for a schedule II opioid drug. Start Date: 05/04/21 Status: Ordered nicotine 21 mg/24 hr transdermal film, extended release 1 patch, Topically, Daily, Maintenance, 11/08/21 12:48:00 EST, Patch, ; Start Date: 11/08/21 Status: Ordered nystatin topical 706130 u/gm cream 1 application, Topically, 2 times [...] Gm, 5 Refills, Acute, 05/10/21 11:59:00 EDT, [facility], 15, TAKE 17 GM BY MOUTH [...] 0 Refills, Maintenance, 02/09/20 10:05:00 EDT, Inhaler, [facility], 165, cm, 02/08/20 19:47:00 EDT, Height, 104.5, kg, 02/07/20 8:15:00 EDT, Dry Weight Start Date: 02/09/20 Stop Date: 03/10/20 Status: Ordered verapamil 240 mg/12 hours oral tablet, extended release 1 tablet = 240 mg, By Mouth, Daily at bedtime, # 90 tablet, 1 Refills, Maintenance, 05/09/21 8:45:00 EDT, SR Tablet, [facility], 165, cm, 04/11/21 7:42:00 EDT, Height, [...]
--- OUTSIDE RECORDS SUMMARY | 2023-07-16 14:47 | XMS_ITS | Continuity of Care Document ---
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 Name Role Phone Maribel Marquez NP Primary Care Physician [place] [facility] [place] 03/31/23 - 03/31/[address] [address]- Encounter Diagnosis Depression(Final) - 03/31/23 Discharge Disposition: A-D/C Home Attending Physician: Robby Trinidad MD Admitting Physician: Robby Trinidad MD Referring Physician: Not on Staff, Referring MD Allergies, Adverse Reactions, Alerts Substance Reaction Severity Status codeine Active lithium 1 Active penicillin Active predniSONE Active Zithromax Active Geodon Active sulfa drugs Active Macrobid Active Seafood Active 1pt reports 01/17/13 started [...] 10:33:00 EST, Inhaler, Route to Pharmacy Electronically, NCPDP_[id number], [facility], 163, cm, 11/16/22 9:43:00 EST, Height, 97.3,... Start Date: 11/16/22 Status: Ordered atorvastatin 10 mg oral tablet 1 tablet = 10 mg, By Mouth, Daily at bedtime, # 30 tablet, 0 Refills, Maintenance, 11/16/22 10:33:00 EST, Tablet, [facility], Partial fill upon patient request if [...] 11/16/22 10:33:00 EST, Route to Pharmacy Electronically, [facility], Partial fill upon patientrequest if the [...] 0 Refills, Maintenance, 11/16/22 10:33:00 EST, Tablet, [facility], Partial fill upon patient request if [...] 11/16/22 10:34:00 EST, Route to Pharmacy Electronically, [facility], Partial fill upon patient request if the prescription is for a schedule II opioid d... Start Date: 11/16/22 Stop Date: 08/13/23 Status: Ordered FLUoxetine 20 mg oral capsule 80 mg, 4, capsule, By Mouth, Daily in AM, # 120 capsule, Refills 0, Tot. Refills 0, Maintenance, 11/16/22 10:34:00 EST, Route to Pharmacy Electronically, [facility], Partial fill upon patient request if [...] 02/12/23 10:51:00 EDT, [facility] Pharmacy Electronically, [facility] 60 tablet, 1 Refills, Maintenance,02/22/23 10:08:00 EDT, [facility], 146, cm, 02/05/23 20:22:00 EDT, [...] 0 Refills, Maintenance, 11/16/22 10:34:00 EST, Tablet, [facility], Partial fill upon patient request if [...] Start Date: 01/06/23 Status: Ordered nystatin topical 252819 u/gm cream 1 application, Topically, 2 times a day, # 15 Gm, 0 Refills, Maintenance, 01/05/23 15:04:00 EDT, Cream, [facility], Partial fill upon patient request if the prescription is for a schedule II opioid drug., 1 application Topically 2 times a da... Start Date: 01/05/23 Status: Ordered nystatin topical 732532 u/gm cream 0 Refills, Maintenance, 01/06/23 18:05:00 [...] Maintenance,11/16/22 10:34:00 EST, Route to Pharmacy Electronically, [facility], Partial fill upon patient request if [...] Range]: 1 2 3 Height 164 cm (03/31/23 8:09 PM) 164 cm (03/31/23 6:44 PM) 164 cm (03/31/23 5:18 PM) Weight 100 kg (03/31/23 8:09 PM) 100 kg (03/31/23 6:44 PM) 100 kg (03/31/23 5:18 PM) Oxygen Saturation [94-100 %] 97 % (03/31/23 8:09 PM) 98 % (03/31/23 6:44 PM) 97 % (03/31/23 4:48 PM) Pulse Rate [55-90 bpm] 85 bpm (03/31/23 8:09 PM) 54 bpm *L* (03/31/23 6:44 PM) 86 bpm (03/31/23 4:48 PM) Body Mass Index [18.5-24.99 kg/m2] 37.18 kg/m2 *>HHI* (03/31/23 8:09 PM) 37.18 kg/m2 *>HHI* (03/31/23 6:44 PM) 37.18 kg/m2 *>HHI* (03/31/23 4:48 PM) Blood Pressure [90-138/55-84 mm Hg] 121/85mm Hg (03/31/23 8:09 PM) 124/62mm Hg (03/31/23 6:44 PM) 148/95mm Hg *H* (03/31/23 4:48 PM) Respiratory Rate [16-30 br/min] 18 br/min (03/31/23 8:09 PM) 16 br/min (03/31/23 6:44 PM) 18 br/min (03/31/23 4:48 PM) Temperature [96.8-100.4 DegF] 97.6 DegF (03/31/23 8:09 PM) 98.9 DegF (03/31/23 4:48 PM) Mode of Delivery (Oxygen) Room air (03/31/23 8:09 PM) Room air (03/31/23 6:44 PM) Room air (03/31/23 4:48 PM) Blood pressure sites Arm, right (03/31/23 8:09 PM) Arm, right (03/31/23 6:44 PM) Arm, right (03/31/23 4:48 PM) Temperature Route Oral (03/31/23 8:09 PM) Oral (03/31/23 4:48 PM) Dry Weight 100 kg (03/31/23 8:09 PM) 100 kg (03/31/23 6:44 PM) 100 kg (03/31/23 5:18 PM) Social History Social History Type Response Smoking Status 10 or more cigarette s (1/2 pack or more)/day in last 30 days; Type: Cigarettes; Other: Reports smoking 1/2-1 packs/day, ending on level of stress; Started at age: 25; entered on: 11/18/22 Sex Patient Care team information Care Team Personnel Name: Rudi Ruiz RN Position: [facility] ED RN W/OE and Tasks Member Role: Primary Care Nurse Name: Alicja Riggs RN Position: [facility] RN Member Role: Primary Care Nurse Name: Ros Fu RN Position: [facility] RN Member Role: Primary Care Nurse Name: Hilda Mccabe RN Position: [facility] RN Member Role: Primary Care Nurse Name: Rosana Kearney RN Position: [facility] SN RN Member Role: Primary Care Nurse Name: Wil Flood RN Position: [facility] RN Member Role: Primary Care Nurse Name: Gagandeep Sheldon RN Position: [facility] RN Member Role: Primary Care Nurse Name: Chip Morton Position: [facility] Outreach Member Role: Lifetime Consulting Physician Name: Alba Daily RN Position: [facility] RN Member Role: Primary Care Nurse Name: Maribel Marquez NP Position: [facility] PCO Associate Professional Member Role: PCP Address: Address: [address] [place] [address]- [place] Name: Jose Ramirez RN Position: [facility] RN Member Role: Primary Care Nurse Name: Brittany Butts RN Position: [facility] AMB Nurse Member Role: Primary Care Nurse Name: Pauline Mcadams RN Position: [facility] RN Member Role: Primary Care Nurse Name: Mary Sánchez RN Position: [facility] RN Member Role: Primary Care Nurse Name: Shama Rosado RN Position: [facility] RN Member Role: Primary Care Nurse Name: Jackie Snyder RN Position: [facility] RN Member Role: Primary Care Nurse Name: Jay Burks NP Position: Reference Physician Member Role: Primary Care Nurse Address: Address: [address] [place], [place] [id number] Clinical & [place] [address]- [place] Name: Parvez Kaba MD Position: [facility] Renal MD Member Role: Lifetime Consulting Physician Address: Address: [address] [place] [address] [facility] [place] [address]- Name: Mirna Paul RN Position: [facility] OB RN Member Role: Primary Care Nurse Name: Latonya Rahman RN Position: [facility] Onco RN Member Role: Primary Care Nurse Name: Viki Gonzalez RN Position: [facility] RN Member Role: Primary Care Nurse Name: Claudia Presley RN Position: [facility] RN Member Role: Primary Care Nurse Name: Iris Villa RN Position: [facility] Hospital Clinical Trial Leader Member Role: Primary Care Nurse Name: Raisa Wellington DO Position: [facility] Resident Member Role: ED Resident Address: Address: [address] [place] [address] [place] [address]- [place] Name: Henrietta Rizvi RN Position: [facility] ED RN W/OE and Tasks Member Role: Patient Care Provider Name: Avelina Pagan Position: [facility] ED TA [facility] Member Role: Patient Care Provider Name: Robby Trinidad MD Position: [facility] ED Medicine MD Member Role: Admitting Physician Address: Address: [address] [place] [address] [place] [address]- Care Team Related Persons Name: LISBETH- BOWSTRING MAKERINDRA Address: [address] [place] [address] Name: FRETTED INSTRUMENT INSPECTORGREGG Address: [address] [place] [address] Name: CARLOS PAZ Address: home [address] [place] [address]
--- OUTSIDE RECORDS SUMMARY | 2023-07-16 14:47 | XMS_ITS | Continuity of Care Document ---
Author Name Unknown Organization [facility] ter Address [address] [place] [id number]- Care Team Providers Care Photo Lab Manager Name Role Phone Maribel Marquez NP Primary Care Physician [phone] Encounter [facility] [place] Date(s): 11/17/21 - 11/18/[address] [address]- Encounter Diagnosis Suicidal ideation(Final) - 11/17/21 Discharge Disposition: Transfer to [facility] Attending Physician: Ros Corado MD Admitting Physician: [...] 07/22/20 18:41:00 EDT, Route to Pharmacy Electronically, [facility], 163.5, cm, 07/22/20 18:29:00 EDT, Height, 102.5, kg, 07/18/20 21:04:00 EDT... Start Date: 07/22/20 Status: Ordered ferrous sulfate 325 mg oral enteric coated tablet 325 mg, 1, tablet, By Mouth, Daily, # 90 tablet, Refills 2, Tot. Refills 2, Maintenance, 04/11/21 9:22:00 EDT, Route to Pharmacy Electronically, [facility], Partial fill upon patient request if the prescription is for a schedule II opioid . Start Date: 04/11/21 Stop Date: 01/06/22 Status: Ordered Flovent HFA 110 mcg/inh inhalation aerosol 2 puffs = 220 mcg, Inhalation, 2 times a day, # 3 each, 3 Refills, Maintenance, 05/09/21 8:41:00 EDT, Aerosol, [facility], 165, cm, 04/11/21 7:42:00 EDT, Height, [...] 05/09/21 8:43:00 EDT, Route to Pharmacy Electronically, [facility], 165, cm, 04/11/21 7:42:00 EDT, Height, [...] 1 Refills, Maintenance, 05/09/21 8:43:00 EDT,Tablet, [facility], Partial fill upon patient [...] 05/09/21 8:45:00 EDT, Route to Pharmacy Electronically, [facility], 165, cm, 04/11/21 7:42:00 EDT, Height, [...] Start Date: 11/08/21 Status: Ordered nystatin topical [id number] u/gm cream 1 application, Topically, 2 times [...] Gm, 5 Refills, Acute, 05/10/21 11:59:00 EDT, [facility], 15, TAKE 17 GM BY MOUTH DAILYAS NEEDED FOR CONSTIPATION INSTR:DISSOLVE IN WATER... Start Date: 05/10/21 Status: Ordered prazosin 1 mg oral capsule 4 mg, Capsule, By Mouth, 11/17/21 21:00:00 EST Start Date: 11/17/21 Stop Date: 11/18/21 Status: Completed prazosin 2 mg oral capsule 2 capsule [...] 0 Refills, Maintenance, 02/09/20 10:05:00 EDT, Inhaler, [facility], 165, cm, 02/08/20 19:47:00 EDT, Height, 104.5, kg, 02/07/20 8:15:00 EDT, Dry Weight Start Date: 02/09/20 Stop Date: 03/10/20 Status: Ordered verapamil 240 mg/12 hours oral tablet, extended release 1 tablet = 240 mg, By Mouth, Daily at bedtime, # 90 tablet, 1 Refills, Maintenance, 05/09/21 8:45:00 EDT, SR Tablet, [facility], 165, cm, 04/11/21 7:42:00 EDT, Height, [...] 3 Oxygen Saturation [94-100 %] 98 % (11/18/21 10:14 AM) 96 % (11/18/21 12:25 AM) 98 % (11/17/21 5:55 PM) Pulse Rate [55-90 bpm] 74 bpm (11/18/21 10:14 AM) 75 bpm (11/18/21 12:25 AM) 87 bpm (11/17/21 5:55 PM) Blood Pressure [90-138/55-84 mm Hg] 141/74mm Hg *H* (11/18/21 10:14 AM) 113/57mm Hg (11/18/21 12:25 AM) 132/83mm Hg (11/17/21 5:55 PM) Respiratory Rate [16-30 br/min] 16 br/min (11/18/21 10:14 AM) 16 br/min (11/18/21 12:25 AM) 18 br/min (11/17/21 5:55 PM) Temperature [96.8-100.4 DegF] 98.6 DegF (11/18/21 10:14 AM) 98.2 DegF (11/17/21 5:55 PM) 98.3 DegF (11/17/21 2:17 PM) Mode of Delivery (Oxygen) Room air (11/18/21 10:14 AM) Room air (11/18/21 12:25 AM) Room air (11/17/21 5:55 PM) Blood pressure sites Arm, right (11/18/21 10:14 AM) Arm, right (11/18/21 12:25 AM) Arm, right (11/17/21 5:55 PM) Temperature Route Oral (11/18/21 10:14 AM) Oral (11/17/21 5:55 PM) Oral (11/17/21 2:17 PM) Social History Social History Type Response Smoking Status 10 or more cigarette s (1/2 pack or more)/day in last 30 days; Type: Cigarettes; Other: Reports smoking 1/2-1 packs/day, ending on level of stress; Started at age: 25; entered on: 12/31/20 Sex
--- OUTSIDE RECORDS SUMMARY | 2023-07-16 14:47 | XMS_ITS | Continuity of Care Document ---
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 Name Role Phone Not on Staff, PCP Primary Care Physician Unavail able Encounter [facility] Date(s): 06/04/21 - 06/05/[address] [address]- Encounter Diagnosis Depression(Final) - 06/04/21 Discharge Disposition: A-D/C Home Attending Physician: Mike Flores DO Admitting Physician: Mike Flores DO Referring Physician: Not on Staff, Referring [...] influenza virus vaccine, inactivated 1 09/27/10 Gi benotn pneumococcal 23-valent vaccine 10/06/10 Given Diphth-Tetanus Toxoids Adsorbed(oldterm) 12/04/08 Given Not Given Vaccine Date Status Refusal Reason influenza virus vaccine, inactivated 08/02/19 Not Given Patient Refuses 1Early/Late Reason: Nursing Judgment Medications atorvastatin 10 mg oral tablet 1 tablet = 10 mg, By Mouth, Daily at bedtime, # 30 tablet, 0 Refills, Maintenance, 12/23/20 16:38:00 EST, Tablet, [facility], Partial fill upon patient request if [...] 0 Refills, Maintenance, 02/09/20 10:08:00 EDT, Tablet, [facility], 165, cm, 02/08/20 19:47:00 EDT, Height, 104.5, kg,02/07/20 8:15:00 EDT, Dry Weight Start Date: 02/09/20 Status: Ordered doxazosin 1 mg oral tablet 3 mg, 3, tablet, By Mouth, Daily at bedtime, # 90 tablet, Refills 0, Tot. Refills 0, Maintenance, 07/22/20 18:41:00 EDT, Route to Pharmacy Electronically, [facility], 163.5, cm, 07/22/20 18:29:00 EDT, Height, 102.5, kg, 07/18/20 21:04:00 EDT... Start Date: 07/22/20 Status: Ordered ferrous sulfate 325 mg oral enteric coated tablet 325 mg, 1, tablet, By Mouth, Daily, # 90 tablet, Refills 2, Tot. Refills 2, Maintenance, 04/11/21 9:22:00 EDT, Route to Pharmacy Electronically, [facility], Partial fill upon patient request if the prescription is for a schedule II opioid Start Date: 04/11/21 Stop Date: 01/06/22 Status: Ordered Flovent HFA 110 mcg/inh inhalation aerosol 2 puffs = 220 mcg, Inhalation, 2 times a day, # 3 each, 3 Refills, Maintenance, 05/09/21 8:41:00 EDT, Aerosol, [facility], 165, cm, 04/11/21 7:42:00 EDT, Height, 102.6, kg, 02/12/21 12:14:00 EDT, Dry Weight Start Date: 05/09/21 Status: Ordered Haldol Decanoate decanoate 100 mg/ml injectable solution = 100 mg, Intramuscular, Every 28 days, last dose given on 09/17/2020. Next due 10/15/20., # 1 each, 0Refills, Soft Stop, 07/22/20 18:42:00 EDT, Solution, [facility], 163.5, cm, 07/22/20 18:29:00 EDT, Height, 102.5, kg, 07/18/20 21:04:00 EDT,... Start Date: 07/22/20 Status: Ordered lisinopril 5 mg oral tablet 5 mg, Tablet, By Mouth, 06/05/21 9:00:00 EDT Start Date: 06/05/21 Stop Date: 06/05/21 Status: Completed lisinopril 5 mg oral tablet 5 mg, 1, tablet, By Mouth, Daily, # 90 tablet, Refills 1, Tot. Refills 1, Maintenance, 05/09/21 8:43:00 EDT, Route to Pharmacy Electronically, [facility], 165, cm, 04/11/21 7:42:00 EDT, Height, 102.6, kg, 02/12/21 12:14:00 EDT, Dry Weight Start Date: 05/09/21 Status: Ordered loratadine 10 mg oral tablet 10 mg, 1, tablet, By Mouth, Daily, # 90 tablet, Refills 3, Tot. Refills 3, Maintenance, 04/11/21 9:38:00 EDT, Route to Pharmacy Electronically, [facility], Partial fill upon patient requestif the [...] each, 1 Refills, Maintenance, 05/09/21 8:43:00 EDT,Tablet, [facility], Partial fill upon patient request if the prescription is for a schedule II opioid drug., 165, cm, 04/11/21 7:42:00 EDT, H... Start Date: 05/09/21 Stop Date: 11/05/21 Status: Ordered montelukast 10 mg oral tablet 10 mg, 1, tablet, By Mouth, Daily, # 90 tablet, Refills 1, Tot. Refills 1, Maintenance, 05/09/21 8:45:00 EDT, Route to Pharmacy Electronically, [facility], 165, cm, 04/11/21 7:42:00 EDT, Height, [...] Gm, 5 Refills, Acute, 05/10/21 11:59:00 EDT, [facility], 15, TAKE 17 GM BY MOUTH [...] 0 Refills, Maintenance, 02/09/20 10:05:00 EDT, Inhaler, [facility], 165, cm, 02/08/20 19:47:00 EDT, Height, 104.5, kg, 02/07/20 8:15:00 EDT, Dry Weight Start Date: 02/09/20 Stop Date: 03/10/20 Status: Ordered verapamil 240 mg/12 hours oral tablet, extended release 1 tablet = 240 mg, By Mouth, Daily at bedtime, # 90 tablet, 1 Refills, Maintenance, 05/09/21 8:45:00 EDT, SR Tablet, [facility], 165, cm, 04/11/21 7:42:00 EDT, Height, [...] 3 Oxygen Saturation [94-100 %] 100 % (06/05/21 6:44 AM) 97 % (06/04/21 11:19 PM) 96 % (06/04/21 5:54 PM) Pulse Rate [55-90 bpm] 78 bpm (06/05/21 6:44 AM) 84 bpm (06/04/21 11:19 PM) 88 bpm (06/04/21 5:54 PM) Blood Pressure [90-138/55-84 mm Hg] 117/70mm Hg (06/05/21 10:06 AM) 118/73mm Hg (06/05/21 6:44 AM) 116/68mm Hg (06/04/21 11:19 PM) Respiratory Rate [16-30 br/min] 16 br/min (06/05/21 6:44 AM) 18 br/min (06/04/21 11:19 PM) 15 br/min *L* (06/04/21 5:54 PM) Temperature [96.8-100.4 DegF] 98.3 DegF (06/05/21 6:44 AM) 97.9 DegF (06/04/21 11:19 PM) 98.7 DegF (06/04/21 5:54 PM) Mode of Delivery (Oxygen) Room air (06/05/21 6:44 AM) Room air (06/04/21 11:19 PM) Room air (06/04/21 5:54 PM) Blood pressure sites Arm, right (06/05/21 6:44 AM) Temperature Route Oral (06/05/21 6:44 AM) Oral (06/04/21 11:19 PM) Oral (06/04/21 5:54 PM) Social History Social History Type Response Smoking Status 10 or more cigarette s (1/2 pack or more)/day in last 30 days; Type: Cigarettes; Other: Reports smoking 1/2-1 packs/day, ending on level of stress; Started at age: 25; entered on: 12/31/20 Sex
--- OUTSIDE RECORDS SUMMARY | 2023-07-16 14:47 | XMS_ITS | Continuity of Care Document ---
Author Name Unknown Organization [facility] ter Address [address] [place] [id number]- Care Team Providers Care Bag Filler Name Role Phone Michelle Norris MD Primary Care Physician [place] [facility] [place] - 07/15/[address] [address]- [facility] Discharge Disposition: A-D/C Home Attending Physician: Joel Groves MD Admitting Physician: Joel Groves MD Referring Physician: Not on Staff, Referring [...] 0 Refills, Maintenance, 02/09/20 10:07:00 EDT, Tablet, [facility], 165, cm, 02/08/20 19:47:00 EDT, Height, 104.5, kg, 02/07/20 8:15:00 EDT, Dry Weight Start Date: 02/09/20 Status: Ordered chlorproMAZINE 25 mg oral tablet = 25 mg, By Mouth, 3 times a day, PRN Agitation Anxiety, # 90 tablet, 0 Refills, Maintenance, 02/09/20 10:08:00 EDT, Tablet, [facility], 165, cm, 02/08/20 19:47:00 EDT, Height, 104.5, kg,02/07/20 8:15:00 EDT, Dry Weight Start Date: 02/09/20 Status: Ordered Claritin 10 mg oral tablet 10 mg, 1, tablet, By Mouth, Daily, # 30 tablet, Refills 0, Tot. Refills 0, Maintenance, 02/09/20 10:10:00 EDT, Route to Pharmacy Electronically, [facility], 165, cm, 02/08/20 19:47:00 EDT, Height, 104.5, kg, 02/07/20 8:15:00 EDT, Dry Weight Start Date: 02/09/20 Status: Ordered Colace sodium 100 mg oral capsule 100 mg, 1, capsule, By Mouth, 2 times a day, PRN, # 60 capsule, Refills 0, Tot. Refills 0, Maintenance, Constipation, 02/09/20 10:08:00 EDT, Route to Pharmacy Electronically, [facility], 165, cm, 02/08/20 19:47:00 EDT, Height, 104.5, kg, /... Start Date: 02/09/20 Status: Ordered Flonase 50 mcg/inh nasal spray 1 sprays = 50 mcg, Nares, Both, 2 times a day, # 16 Gm, 0 Refills, Maintenance, 02/09/20 10:09:00 EDT, Nasal [place], [facility], 1 sprays Nares, Both 2 times a day,x30 days, 165, cm, 02/08/20 19:47:00 EDT, Height, 104.5, kg, 02/07/20 8:15:00... Start Date: 02/09/20 Stop Date: 03/10/20 Status: Ordered Flovent HFA 110 mcg/inh inhalation aerosol 2 puffs = 220 mcg, Inhalation, 2 times a day, # 1 each, 0 Refills, Maintenance, 02/09/20 10:06:00 EDT, Aerosol, [facility], 165, cm, 02/08/20 19:47:00 EDT, Height, 104.5, kg, 02/07/20 8:15:00 EDT, Dry Weight Start Date: 02/09/20 Status: Ordered lisinopril 5 mg oral tablet 5 mg, 1, tablet, By Mouth, Daily, # 30 tablet, Refills 0, Tot. Refills 0, Maintenance, 02/09/20 10:10:00 EDT, Route to Pharmacy Electronically, [facility], 165, cm, 02/08/20 19:47:00 EDT, Height, 104.5, kg, 02/07/20 8:15:00 EDT, Dry Weight Start Date: 02/09/20 Status: Ordered montelukast 10 mg oral tablet 10 mg, 1, tablet, By Mouth, Daily, # 30 tablet, Refills 0, Tot. Refills 0, Maintenance, 02/09/20 10:11:00 EDT, Route to Pharmacy Electronically, [facility], 165, cm, 02/08/20 19:47:00 EDT, Height, 104.5, kg, 02/07/20 8:15:00 EDT, Dry Weight Start Date: 02/09/20 Status: Ordered norethindrone 0.35 mg oral tablet 1 tablet = 0.35 mg, By Mouth, Daily, # 30 tablet, 0 Refills, Maintenance, 02/09/20 10:07:00 EDT, Tablet, [facility], 165, cm, 02/08/20 19:47:00 EDT, Height, [...] 9:00:00 EDT, 02/09/20 10:22:00 EDT, REC Powder, [facility], 17 Gm By Mouth Daily,Instr:dissolve in water before taking, 165, cm, 02/08/20 19:47:00... Start Date: 02/09/20 Stop Date: 02/08/21 Status: Ordered prazosin 2 mg oral capsule 2 capsule = 4 mg, By Mouth, Daily at bedtime, # 60 capsule, 1 Refills, Maintenance, 02/09/20 10:12:00 EDT, [facility], 165, cm, 02/08/20 19:47:00 EDT, Height, 104.5, kg, 02/07/20 8:15:00 EDT, Dry Weight Start Date: 02/09/20 Stop Date: 03/08/20 Status: Ordered traZODone 150 mg oral tablet 1 tablet = 150 mg, By Mouth, Daily at bedtime, for sleep, # 30 tablet, 1 Refills, Maintenance, 02/09/20 10:13:00 EDT, Tablet, [facility], 165, cm, 02/08/20 19:47:00 EDT, Height, 104.5, kg, 02/07/20 8:15:00 EDT, Dry Weight Start Date: 02/09/20 Status: Ordered Trileptal 150 mg oral tablet 150 mg, 1, tablet, By Mouth, Daily at bedtime, # 30 tablet, Refills 0, Tot. Refills 0, Maintenance,02/09/20 10:12:00 EDT, Route to Pharmacy Electronically, [facility], 165, cm, 02/08/20 19:47:00 EDT, Height, 104.5, kg, 02/07/20 8:15:00 EDT,... Start Date: 02/09/20 Status: Ordered Trileptal 300 mg oral tablet 300 mg, 1, tablet, By Mouth, Daily at bedtime, # 30 tablet, Refills 0, Tot. Refills 0, Maintenance,02/09/20 10:18:00 EDT, Route to Pharmacy Electronically, [facility], 165, cm, 02/08/20 19:47:00 EDT, Height, 104.5, kg, 02/07/20 8:15:00 EDT,... Start Date: 02/09/20 Status: Ordered Ventolin HFA 108 mcg/inh inhalation aerosol with adapter 2 puffs = 180 mcg, Inhalation, 4 times a day, PRN for wheezing, # 1 each, 0 Refills, Maintenance, 02/09/20 10:05:00 EDT, Inhaler, [facility], 165, cm, 02/08/20 19:47:00 EDT, Height, 104.5, kg, 02/07/20 8:15:00 EDT, Dry Weight Start Date: 02/09/20 Stop Date: 03/10/20 Status: Ordered verapamil 240 mg/12 hours oral tablet, extended release 1 tablet = 240 mg, By Mouth, Daily at bedtime, # 30 tablet, 0 Refills, Maintenance, 02/09/20 10:14:00 EDT, SR Tablet, [facility], 165, cm, 02/08/20 19:47:00 EDT, Height, [...] 3 Oxygen Saturation [94-100 %] 98 % (07/15/20 2:30 AM) 98 % (07/14/20 7:09 PM) Pulse Rate [55-90 bpm] 85 bpm (07/15/20 2:30 AM) 90 bpm (07/14/20 11:15 PM) 90 bpm (07/14/20 7:09 PM) Blood Pressure [90-138/55-84 mm Hg] 115/81mm Hg (07/15/20 2:30 AM) 147/115mm Hg *H* (07/14/20 11:15 PM) 147/115mm Hg *H* (07/14/20 11:14 PM) Respiratory Rate [16-30 br/min] 16 br/min (07/15/20 2:30 AM) 19 br/min (07/14/20 7:09 PM) Temperature [96.8-100.4 DegF] 98.3 DegF (07/15/20 2:30 AM) 98.7 DegF (07/14/20 7:09 PM) Mode of Delivery (Oxygen) Room air (07/15/20 2:30 AM) Room air (07/14/20 7:09 PM) Temperature Route Oral (07/15/20 2:30 AM) Oral (07/14/20 7:09 PM) Social History Social History Type Response Smoking Status 10 or more cigarette s (1/2 pack or more)/day in last 30 days; Use: smokes 1 pack a day entered on: 05/10/19 Sex
--- OUTSIDE RECORDS SUMMARY | 2023-07-16 14:48 | XMS_ITS | Continuity of Care Document ---
Author Name Unknown Organization [facility] Address [address] [place] [address]- Care Team Providers Care Recreation Counselor Name Role Phone Maribel Marquez NP Primary Care Physician Encounter [facility] [place] Date(s): 08/18/21 - 09/17/21 [facility] [address] [place] [address]- Allergies, Adverse Reactions, Alerts Substance Reaction Severity [...] 0 Refills, Maintenance, 06/28/21 10:16:00 EDT, Tablet, [facility], Partial fill upon patient [...] 0 Refills, Maintenance, 02/09/20 10:08:00 EDT, Tablet, [facility], 165, cm, 02/08/20 19:47:00 EDT, Height, 104.5, kg,02/07/20 8:15:00 EDT, Dry Weight Start Date: 02/09/20 Status: Ordered doxazosin 1 mg oral tablet 3 mg, 3, tablet, By Mouth, Daily at bedtime, # 90 tablet, Refills 0, Tot. Refills 0, Maintenance, 07/22/20 18:41:00 EDT, Route to Pharmacy Electronically, [facility], 163.5, cm, 07/22/20 18:29:00 EDT, Height, [...] 3 Refills, Maintenance, 05/09/21 8:41:00 EDT, Aerosol, [facility], 165, cm, 04/11/21 7:42:00 EDT, Height, 102.6, kg, 02/12/21 12:14:00 EDT, Dry Weight Start Date: 05/09/21 Status: Ordered Haldol Decanoate decanoate 100 mg/ml injectable solution = 100 mg, Intramuscular, Every 28 days, last dose given on 09/17/2020. Next due 10/15/20., # 1 each, 0Refills, Soft Stop, 07/22/20 18:42:00 EDT, Solution, [facility], 163.5, cm, 07/22/20 18:29:00 EDT, Height, 102.5, kg, 07/18/20 21:04:00 EDT,... Start Date: 07/22/20 Status: Ordered ibuprofen 600 mg oral tablet 600 mg, 1, tablet, By Mouth, Every 6 hours, PRN, # 120 tablet, Refills 0, Tot. Refills 0, Maintenance, Headache, 08/08/21 7:41:00 EDT, Route to Pharmacy Electronically, [facility], Partial fill upon patient request if the prescription is for... Start Date: 08/08/21 Stop Date: 09/07/21 Status: Ordered lisinopril 5 mg oral tablet 5 mg, 1, tablet, By Mouth, Daily, # 90 tablet, Refills 1, Tot. Refills 1, Maintenance, 05/09/21 8:43:00 EDT, Route to Pharmacy Electronically, [facility], 165, cm, 04/11/21 7:42:00 EDT, Height, 102.6, kg, 02/12/21 12:14:00 EDT, Dry Weight Start Date: 05/09/21 Status: Ordered loratadine 10 mg oral tablet 10 mg, 1, tablet, By Mouth, Daily, # 90 tablet, Refills 3, Tot. Refills 3, Maintenance, 04/11/21 9:38:00 EDT, Route to Pharmacy Electronically, [facility], [...] each, 1 Refills, Maintenance, 05/09/21 8:43:00 EDT,Tablet, [facility], Partial fill upon patient request if the prescription is for a schedule II opioid drug., 165, cm, 04/11/21 7:42:00 EDT, H... Start Date: 05/09/21 Stop Date: 11/05/21 Status: Ordered montelukast 10 mg oral tablet 10 mg, 1, tablet, By Mouth, Daily, # 90 tablet, Refills 1, Tot. Refills 1, Maintenance, 05/09/21 8:45:00 EDT, Route to Pharmacy Electronically, [facility], 165, cm, 04/11/21 7:42:00 EDT, Height, [...] Gm, 5 Refills, Acute, 05/10/21 11:59:00 EDT, [facility], 15, TAKE 17 GM BY MOUTH [...] 0 Refills, Maintenance, 02/09/20 10:05:00 EDT, Inhaler, [facility], 165, cm, 02/08/20 19:47:00 EDT, Height, 104.5, kg, 02/07/20 8:15:00 EDT, Dry Weight Start Date: 02/09/20 Stop Date: 03/10/20 Status: Ordered verapamil 240 mg/12 hours oral tablet, extended release 1 tablet = 240 mg, By Mouth, Daily at bedtime, # 90 tablet, 1 Refills, Maintenance, 05/09/21 8:45:00 EDT, SR Tablet, [facility], 165, cm, 04/11/21 7:42:00 EDT, Height, [...]
--- OUTSIDE RECORDS SUMMARY | 2023-07-16 14:48 | XMS_ITS | Continuity of Care Document ---
Author Name Unknown Organization [facility] Address [address] [place] [address]- Care Team Providers Care Cable Tower Operator Name Role Phone Maribel Marquez NP Primary Care Physician En[place] [facility] [place](s): 02/21/22 - 03/23/22 [facility] [address] [place] [id number]- Attending Physician: Jessica Kitchen Admitting Physician: AdmJessica [...] tablet, 0 Refills, Maintenance, 01/04/22 11:12:00 EDT, [facility], Partial fill upon patient request if [...] 9:22:00 EDT, Route to Pharmacy Electronically, [facility], Partial fill upon patient request if the prescription is for a schedule II opioid . Start Date: 04/11/21 Stop Date: 01/06/22 Status: Ordered Flovent HFA 110 mcg/inh inhalation aerosol 2 puffs, Inhalation, 2 times a day, # 12 Gm, 2 Refills, [facility], 165, cm, 12/19/21 10:41:00 EST, Height, [...] 04/04/22 12:34:00 EDT, 01/04/22 12:34:00 EDT, Tablet, [facility], Partial fill upon patient request if the prescription is f... Start Date: 01/04/22 Stop Date: 04/04/22 Status: Ordered metFORMIN 500 mg oral tablet See Instructions, TAKE 1 EACH BY MOUTH 2 TIMES A DAY, # 60 tablet, 5 Refills, [facility],165, cm, 01/19/22 13:55:00 EDT, Height, 103, [...] 01/04/22 11:12:00 EDT, Route to Pharmacy Electronically, [facility], 165, cm, 12/19/21 10:41:00 EST, Height, [...] 01/19/22 10:48:00 EDT, Route to Pharmacy Electronically, [facility], Partial fill upon patient request if [...] Refills, Maintenance, 05/09/21 8:45:00 EDT, SR Tablet, [facility], 165, cm, 04/11/21 7:42:00 EDT, Height, 102.6, kg, 02/12/21 12:14:00 EDT, Dry Weight Start Date: 05/09/21 Status: Ordered Problem List Condition Effective Dates Status Health Status Inform ant Asthma(Confirmed) Active Borderline personality disorder(Confirmed) Active Chronic abdominal pain(Confirmed) Active Chronic post-traumatic stres s disorder (PTSD)(Confirmed) Active COVID-19(Confirmed) 1 03/20/22 Active Depression(Confirmed) Active GERD (gastroesophageal reflu x disease)(Confirmed) Active Hyperlipidemia NOS(Confirmed) Active Hypertension(Confirmed) Active Anemia, iron deficiency(Confirmed) Active Nicotine dependence(Confirmed) Active Obese class II(Confirmed) Active Depression, major, recurrent , severe with psychosis(Confirmed) Active Single major depressive episode(Confirmed) Active Tobacco dependence(Confirmed) Active Type 2 diabetes mellitus(Confirmed) Active 1Problem added by Discern Expert Social History Social History Type Response Smoking Status 10 or more cigarette s (1/2 pack or more)/day in last 30 days; Type: Cigarettes; Other: Reports smoking 1/2-1 packs/day, ending on level of stress; Started at age: 25; entered on: 12/31/20 Sex
--- OUTSIDE RECORDS SUMMARY | 2023-07-16 14:48 | XMS_ITS | Continuity of Care Document ---
Author Name Unknown Organization [facility] ter Address [address] [place] [address]- Care Team Providers Care Cotton Converter Name Role Phone Maribel Marquez NP Primary Care Physician [phone] Encounter [facility] [place] Date(s): 09/20/22 - 09/22/[address] [address]- Encounter Diagnosis Hallucinations(Final) - 09/20/22 Intentional self-harm by glass(Final) - 09/20/22 Discharge Disposition: A-D/C Home Attending Physician: Skylar [...] tablet, 1 Refills, Maintenance, 07/24/22 15:17:00 EDT, [facility], 165.2, cm, 07/19/22 10:30:00 EDT, Height, [...] a day, # 12 Gm, 1 Refills, [facility], 162, cm, 03/20/22 19:50:00 EDT, Height, [...] 07/21/22 14:07:00 EDT, Route to Pharmacy Electronically, [facility], Partial fill upon patient requestif the prescription is for a schedule II opioid janet. Start Date: 07/21/22 Stop Date: 04/17/23 Status: Ordered lisinopril 5 mg oral tablet 5 mg, Tablet, By Mouth, 09/22/22 9:00:00 EST Start Date: 09/22/22 Stop Date: 09/22/22 Status: Completed metFORMIN 500 mg oral tablet See Instructions, TAKE 1 EACH BY MOUTH 2 TIMES A DAY, # 60 tablet, 5 Refills, 08/07/22 10:55:00 EDT, [facility], 165.2, cm, 07/19/22 10:30:00 EDT, Height, [...] 01/04/22 11:12:00 EDT, Route to Pharmacy Electronically, [facility], 165, cm, 12/19/21 10:41:00 EST, Height, 103, kg, 11/26/21 8:59:00 ESTDr... Start Date: 01/04/22 Status: Ordered pantoprazole 40 [...] 1 Refills, Maintenance, 06/23/22 16:17:00 EDT, Aerosol, [facility], Partial fill upon patient request if [...] 07/28/22 7:45:00 EDT, Route to Pharmacy Electronically, [facility], 165.2, cm, 07/19/22 10:30:00 EDT, Height, 96, [...] Refills, Maintenance, 05/09/21 8:45:00 EDT, SR Tablet, [facility], 165, cm, 04/11/21 7:42:00 EDT, Height, [...] 3 Oxygen Saturation [94-100 %] 98 % (09/22/22 10:47 AM) 96 % (09/22/22 6:29 AM) 97 % (09/21/22 11:59 PM) Pulse Rate [55-90 bpm] 70 bpm (09/22/22 10:47 AM) 71 bpm (09/22/22 6:29 AM) 82 bpm (09/21/22 11:59 PM) Blood Pressure [90-138/55-84 mm Hg] 114/70mm Hg (09/22/22 10:47 AM) 114/70mm Hg (09/22/22 10:46 AM) 98/64mm Hg (09/22/22 6:29 AM) Respiratory Rate [16-30 br/min] 16 br/min (09/22/22 10:47 AM) 16 br/min (09/22/22 6:29 AM) 18 br/min (09/21/22 11:59 PM) Temperature [96.8-100.4 DegF] 98.5 DegF (09/22/22 10:47 AM) 98.2 DegF (09/22/22 6:29 AM) 98.0 DegF (09/21/22 11:59 PM) Mode of Delivery (Oxygen) Room air (09/22/22 10:47 AM) Room air (09/22/22 6:29 AM) Room air (09/21/22 11:59 PM) Blood pressure sites Arm, right (09/22/22 10:47 AM) Arm, left (09/22/22 6:29 AM) Arm, right (09/21/22 11:59 PM) Temperature Route Oral (09/22/22 10:47 AM) Oral (09/22/22 6:29 AM) Oral (09/21/22 11:59 PM) Social History Social History Type Response Smoking Status 10 or more cigarette s (1/2 pack or more)/day in last 30 days; Other: 1PPD; entered on: 07/19/22 Sex Patient Care team information Care Team Personnel Name: Rudi Ruiz RN Position: [facility] ED RN W/OE and Tasks Member Role: Primary Care Nurse Name: Alicja Riggs RN Position: [facility] RN Member Role: Primary Care Nurse Name: Ros Fu RN Position: [facility] RN Member Role: Primary Care Nurse Name: Hilda Mccabe RN Position: [facility] RN Member Role: Primary Care Nurse Name: Rosana Kearney RN Position: [facility] AMB Nurse Member Role: Primary Care Nurse Name: Wil Flood RN Position: [facility] RN Member Role: Primary Care Nurse Name: Gagandeep Sheldon RN Position: [facility] RN Member Role: Primary Care Nurse Name: Chip Morton Position: [facility] Outreach Member Role: Lifetime Consulting Physician Name: Alba Daily RN Position: [facility] RN Member Role: Primary Care Nurse Name: Maribel Marquez NP Position: [facility] PCO Associate Professional Member Role: PCP Address: Address: [address] [place] [address]- Name: Jose Ramirez RN Position: [facility] RN Member Role: Primary Care Nurse Name: Brittany Butts RN Position: [facility] AMB Nurse Member Role: Primary Care Nurse Name: Mary Sánchez RN Position: [facility] RN Member Role: Primary Care Nurse Name: Shama Rosado RN Position: [facility] RN Member Role: Primary Care Nurse Name: Jackie Snyder RN Position: [facility] RN Member Role: Primary Care Nurse Name: Jay Burks NP Position: Reference Physician Member Role: Primary Care Nurse Address: Address: [address] [place], [place] [id number] Clinical & [place] [address]- [place] Name: Parvez Kaba MD Position: [facility] Renal MD Member Role: Lifetime Consulting Physician Address: Address: [address] [place] [address] [facility] [place] [address]- Name: Yoana Ledezma RN Position: [facility] RN Member Role: Primary Care Nurse Name: Mirna Paul RN Position: [facility] OB RN Member Role: Primary Care Nurse Name: Latonya Rahman RN Position: [facility] Onco RN Member Role: Primary Care Nurse Name: Claudia Presley RN Position: [facility] RN Member Role: Primary Care Nurse Name: Iris Villa RN Position: [facility] Hospital Boot And Shoe Repairman Member Role: Primary Care Nurse [facility] Attending Position: [facility] ED Attendings Patient Name: Marie Beckham RN Position: [facility] ED RN W/OE and Tasks Member Role: Patient Care Provider Name: Skylar Carvalho MD Position: [facility] Resident Member Role: Admitting Physician Address: Address: [address] [place] [address] [place] [address]- Care Team Related Persons Name: JO-ANN ROMANDURALUMIN MECHANICINDRA Address: [address] [place] [address] Name: TEAM SUPERVISORGREGG Address: [address] [place] [address] Name: CARLOS PAZ Address: [address] [place] [address]
--- OUTSIDE RECORDS SUMMARY | 2023-07-16 14:48 | XMS_ITS | Continuity of Care Document ---
Author Name Unknown Organization [facility] Adult Address [address] [place] [address]- Care Team Providers Care Conference Interpreter Name Role Phone Maribel Marquez NP Primary Care Physician [place] [facility] [place] Date(s): 08/10/21 - 09/09/21 [facility] [address] [place] [address]- Allergies, Adverse Reactions, Alerts Substance Reaction Severity [...] Refills, Maintenance, 06/28/21 10:16:00 EDT, Tablet, [facility], Partial fill upon [...] 0 Refills, Maintenance, 02/09/20 10:08:00 EDT, Tablet, [facility], 165, cm, 02/08/20 19:47:00 EDT, Height, 104.5, kg,02/07/20 8:15:00 EDT, Dry Weight Start Date: 02/09/20 Status: Ordered doxazosin 1 mg oral tablet 3 mg, 3, tablet, By Mouth, Daily at bedtime, # 90 tablet, Refills 0, Tot. Refills 0, Maintenance, 07/22/20 18:41:00 EDT, Route to Pharmacy Electronically, [facility], 163.5, cm, 07/22/20 18:29:00 EDT, Height, [...] 3 Refills, Maintenance, 05/09/21 8:41:00 EDT, Aerosol, [facility], 165, cm, 04/11/21 7:42:00 EDT, Height, 102.6, kg, 02/12/21 12:14:00 EDT, Dry Weight Start Date: 05/09/21 Status: Ordered Haldol Decanoate decanoate 100 mg/ml injectable solution = 100 mg, Intramuscular, Every 28 days, last dose given on 09/17/2020. Next due 10/15/20., # 1 each, 0Refills, Soft Stop, 07/22/20 18:42:00 EDT, Solution, [facility], 163.5, cm, 07/22/20 18:29:00 EDT, Height, 102.5, kg, 07/18/20 21:04:00 EDT,... Start Date: 07/22/20 Status: Ordered ibuprofen 600 mg oral tablet 600 mg, 1, tablet, By Mouth, Every 6 hours, PRN, # 120 tablet, Refills 0, Tot. Refills 0, Maintenance, Headache, 08/08/21 7:41:00 EDT, Route to Pharmacy Electronically, [facility], Partial fill upon patient request if the prescription is for... Start Date: 08/08/21 Stop Date: 09/07/21 Status: Ordered lisinopril 5 mg oral tablet 5 mg, 1, tablet, By Mouth, Daily, # 90 tablet, Refills 1, Tot. Refills 1, Maintenance, 05/09/21 8:43:00 EDT, Route to Pharmacy Electronically, [facility], 165, cm, 04/11/21 7:42:00 EDT, Height, 102.6, kg, 02/12/21 12:14:00 EDT, Dry Weight Start Date: 05/09/21 Status: Ordered loratadine 10 mg oral tablet 10 mg, 1, tablet, By Mouth, Daily, # 90 tablet, Refills 3, Tot. Refills 3, Maintenance, 04/11/21 9:38:00 EDT, Route to Pharmacy Electronically, [facility], Partial fill upon patient requestif the [...] each, 1 Refills, Maintenance, 05/09/21 8:43:00 EDT,Tablet, [facility], Partial fill upon patient request if the prescription is for a schedule II opioid drug., 165, cm, 04/11/21 7:42:00 EDT, H... Start Date: 05/09/21 Stop Date: 11/05/21 Status: Ordered montelukast 10 mg oral tablet 10 mg, 1, tablet, By Mouth, Daily, # 90 tablet, Refills 1, Tot. Refills 1, Maintenance, 05/09/21 8:45:00 EDT, Route to Pharmacy Electronically, [facility], 165, cm, 04/11/21 7:42:00 EDT, Height, [...] Gm, 5 Refills, Acute, 05/10/21 11:59:00 EDT, [facility], 15, TAKE 17 GM BY MOUTH [...] 0 Refills, Maintenance, 02/09/20 10:05:00 EDT, Inhaler, [facility], 165, cm, 02/08/20 19:47:00 EDT, Height, 104.5, kg, 02/07/20 8:15:00 EDT, Dry Weight Start Date: 02/09/20 Stop Date: 03/10/20 Status: Ordered verapamil 240 mg/12 hours oral tablet, extended release 1 tablet = 240 mg, By Mouth, Daily at bedtime, # 90 tablet, 1 Refills, Maintenance, 05/09/21 8:45:00 EDT, SR Tablet, [facility], 165, cm, 04/11/21 7:42:00 EDT, Height, [...]
--- OUTSIDE RECORDS SUMMARY | 2023-07-16 14:48 | XMS_ITS | Continuity of Care Document ---
Author Name Unknown Organization [facility] Adult Address [address] [place] [address]- Care Team Providers Care Brass Pourer Name Role Phone Alma BARAHONA, Maribel Primary Care Physician [phone] Encounter [facility] [place] Date(s): 01/19/22 - 01/26/[address] [address]- Encounter Diagnosis Back pain(Discharge Diagnosis) - 01/19/22 Urinary frequency(Discharge Diagnosis) - 01/19/22 Tobacco dependence(Discharge Diagnosis) - 01/19/22 Attending Physician: Jose Plascencia NP Referring Physician: Maribel Marquez NP Allergies, Adverse [...] tablet, 0 Refills, Maintenance, 01/04/22 11:12:00 EDT, [facility], Partial fill upon patient request if [...] 04/11/21 9:22:00 EDT, Route to Pharmacy Electronically, [facility], Partial fill upon patient request if the prescription is for a schedule II opioid . Start Date: 04/11/21 Stop Date: 01/06/22 Status: Ordered Flovent HFA 110 mcg/inh inhalation aerosol 2 puffs, Inhalation, 2 times a day, # 12 Gm, 2 Refills, [facility], 165, cm, 12/19/21 10:41:00 EST, Height, [...] 04/04/22 12:34:00 EDT, 01/04/22 12:34:00 EDT, Tablet, [facility], Partial fill upon patient request if the prescription is f... Start Date: 01/04/22 Stop Date: 04/04/22 Status: Ordered metFORMIN 500 mg oral tablet 1 each = 500 mg, By Mouth, 2 times a day, # 180 each, 1 Refills, Maintenance, 05/09/21 8:43:00 EDT,Tablet, [facility], Partial fill upon patient request if [...] 01/04/22 11:12:00 EDT, Route to Pharmacy Electronically, [facility], 165, cm, 12/19/21 10:41:00 EST, Height, 103, kg, 11/26/21 8:59:00 EST, Start Date: 01/04/22 Status: Ordered naproxen 500 mg oral tablet 1 tablet = 500 mg, By Mouth, 2 times a day, PRN Pain , Moderate, for 14 days, with food, # 28 tablet, 0 Refills, Acute 02/02/22 14:24:00 EDT, 01/19/22 14:24:00 EDT, Tablet, [facility], Partial fill upon patient request if the prescription is... Start Date: 01/19/22 Stop Date: 02/02/22 Status: Ordered nicotine 21 mg/24 hr transdermal film, extended release 1 patch, Topically, Daily, for 30 days, # 30 patch, 0 Refills, Acute 02/18/22 14:31:00 EDT, 01/19/22 14:31:00 EDT, Patch, [facility], Partial fill upon patient [...] 01/19/22 10:48:00 EDT, Route to Pharmacy Electronically, [facility], Partial fill upon patient request if [...] 0 Refills, Maintenance, 02/09/20 10:05:00 EDT, Inhaler, [facility], 165, cm, 02/08/20 19:47:00 EDT, Height, 104.5, kg, 02/07/20 8:15:00 EDT, Dry Weight Start Date: 02/09/20 Stop Date: 03/10/20 Status: Ordered verapamil 240 mg/12 hours oral tablet, extended release 1 tablet = 240 mg, By Mouth, Daily at bedtime, # 90 tablet, 1 Refills, Maintenance, 05/09/21 8:45:00 EDT, SR Tablet, [facility], 165, cm, 04/11/21 7:42:00 EDT, Height, [...] Effective Dates Health Status Clinical Service Informant Back pain Discharge Diagnosis 01/19/22 Urinary frequency Discharge Diagnosis 01/19/22 Tobacco dependence Discharge Diagnosis 01/19/22 Vital Signs Most recent to oldest [Reference Range]: 1 Height 165 cm (01/19/22 1:55 PM) Weight 105.5 kg (01/19/22 1:55 PM) Oxygen Saturation [94-100 %] 90 % *L* (01/19/22 1:55 PM) Pulse Rate [55-90 bpm] 77 bpm (01/19/22 1:55 PM) Body Mass Index [18.5-24.99] 38.75 *>HHI* (01/19/22 1:55 PM) Blood Pressure [90-138/55-84 mm Hg] 107/ 66mm Hg (01/19/22 1:55 PM) Temperature [96.8-100.4 DegF] 98.3 DegF (01/19/22 1:55 PM) Mode of Delivery (Oxygen) Room air (01/19/22 1:55 PM) Blood pressure sites Arm, right (01/19/22 1:55 PM) Temperature Route Oral (01/19/22 1:55 PM) Weight Obtained Via Standing scale (01/19/22 1:55 PM) Social History Social History Type Response Smoking Status 10 or more cigarette s (1/2 pack or more)/day in last 30 days; Type: Cigarettes; Other: Reports smoking 1/2-1 packs/day, ending on level of stress; Started at age: 25; entered on: 12/31/20 Sex
--- OUTSIDE RECORDS SUMMARY | 2023-07-16 14:48 | XMS_ITS | Continuity of Care Document ---
Author Name Unknown Organization [facility] ter Address [address] [place] [address]- Care Team Providers Care Firm Administrator Name Role Phone Maribel Marquez NP Primary Care Physician Encounter [facility] [place] Date(s): 06/01/23 - 06/01/[address] [address]- Discharge Disposition: A-D/C Home Attending Physician: Robby [...] each, 5 Refills, Maintenance, 05/22/23 11:32:00 EDT, [facility], Partial fill upon patient request if the prescription is for a schedule II opioid drug., 2 puffs Inhal... Start Date: 05/22/23 Stop Date: 05/22/24 Status: Ordered albuterol CFC free 90 mcg/inh inhalation aerosol 90 mcg, 1, puffs, Inhalation, Every 4 hours, PRN, # 6.7 Gm, Refills 0, Tot. Refills 0, Maintenance,11/16/22 10:33:00 EST, Inhaler, Route to Pharmacy Electronically, [id number], [facility], 163, cm, 11/16/22 9:43:00 EST, Height, [...] 02/12/23 10:51:00 EDT, Route to [facility]acy Electronically, [facility] [...] 60 tablet, 1 Refills, Maintenance,02/22/23 10:08:00 EDT, [facility], 146, cm, 02/05/23 20:22:00 EDT, Height, [...] 0 Refills, Maintenance, 11/16/22 10:34:00 EST, Tablet, [facility], Partial fill [...] 0 Refills, Maintenance, 11/16/22 10:34:00 EST, Tablet, [facility], Partial fill upon patient request if [...] 11/16/22 10:34:00 EST, Route to Pharmacy Electronically, [facility], Partial fill upon patient request if [...] 11:34:00 EDT, 05/22/23 11:32:00 EDT, ER Tablet, [facility], Partial fill upon patient request if the prescription is for a radha... Start Date: 05/22/23 Stop Date: 05/29/24 Status: Ordered nystatin topical 355554 u/gm cream 1 application, Topically, 2 times a day, # 15 Gm, 0 Refills, Maintenance, 01/05/23 15:04:00 EDT, Cream, [facility], Partial fill upon patient request if the prescription is for a schedule II opioid drug., 1 application Topically 2 times a da... Start Date: 01/05/23 Status: Ordered nystatin topical [id number] u/gm cream 0 Refills, Maintenance, 01/06/23 18:05:00 [...] 11/16/22 10:34:00 EST, Route to Pharmacy Electronically, [facility], Partial fill upon patient request if [...] Maintenance,11/16/22 10:34:00 EST, Route to Pharmacy Electronically, [facility], Partial fill upon patient request if [...] Range]: 1 2 Oxygen Saturation [94-100 %] 96 % (06/01/23 10:05 PM) 97 % (06/01/23 6:43 PM) Pulse Rate [55-90 bpm] 94 bpm *H* (06/01/23 10:05 PM) 94 bpm *H* (06/01/23 6:43 PM) Blood Pressure [90-138/55-84 mm Hg] 119/ 81mm Hg (06/01/23 10:05 PM) 152/101mm Hg *H* (06/01/23 6:43 PM) Respiratory Rate [16-30 br/min] 20 br/mi n (06/01/23 10:05 PM) 24 br/min (06/01/23 6:43 PM) Temperature [96.8-100.4 DegF] 98.2 DegF (06/01/23 10:05 PM) 98.6 DegF (06/01/23 6:43 PM) Mode of Delivery (Oxygen) Room air (06/01/23 10:05 PM) Room air (06/01/23 6:43 PM) Blood pressure sites Arm, right (06/01/23 10:05 PM) Arm, right (06/01/23 6:43 PM) Temperature Route Oral (06/01/23 10:05 PM) Oral (06/01/23 6:43 PM) Social History Social History Type Response Smoking Status 10 or more cigarette s (1/2 pack or more)/day in last 30 days; Type: Cigarettes; Other: Reports smoking 1/2-1 packs/day, ending on level of stress; Started at age: 25; entered on: 11/18/22 Sex Patient Care team information Care Team Personnel Name: Rudi Ruiz RN Position: [facility] ED RN W/OE and Tasks Member Role: Primary Care Nurse Name: Alicja Riggs RN Position: [facility] RN Member Role: Primary Care Nurse Name: Ros Fu RN Position: [facility] RN Member Role: Primary Care Nurse Name: Hilda Mccabe RN Position: [facility] RN Member Role: Primary Care Nurse Name: Rosana Kearney RN Position: [facility] SN RN Member Role: Primary Care Nurse Name: Wil Flood RN Position: [facility] RN Member Role: Primary Care Nurse Name: Gagandeep Sheldon RN Position: [facility] RN Member Role: Primary Care Nurse Name: Alba Daily RN Position: [facility] RN Member Role: Primary Care Nurse Name: Maribel Marquez NP Position: [facility] PCO Associate Professional Member Role: PCP Address: Address: [address] [place] [address]- [place] Name: Jose Ramirez RN Position: [facility] RN Member Role: Primary Care Nurse Name: Brittany Btuts RN Position: [facility] AMB Nurse Member Role: Primary Care Nurse Name: Pauline Mcadams RN Position: [facility] RN Member Role: Primary Care Nurse Name: Mary Sánchez RN Position: [facility] RN Member Role: Primary Care Nurse Name: Shama Rosado RN Position: [facility] RN Member Role: Primary Care Nurse Name: Jackie Snyder RN Position: [facility] RN Member Role: Primary Care Nurse Name: Jay Burks NP Position: Reference Physician Member Role: Primary Care Nurse Address: Address: [address] [place], [place] [id number] Clinical & [place] [address]- [place] Name: Parvez Kaba MD Position: [facility] Renal MD Member Role: Lifetime Consulting Physician Address: Address: [address] [place] [address] [facility] [place] [address]- Name: Mirna Paul RN Position: [facility] OB RN Member Role: Primary Care Nurse Name: Latonya Rahman RN Position: [facility] Onco RN Member Role: Primary Care Nurse Name: Viki Gonzalez RN Position: [facility] RN Member Role: Primary Care Nurse Name: Claudia Presley RN Position: [facility] RN Member Role: Primary Care Nurse Name: Iris Villa RN Position: [facility] Hospital Desilverizer Member Role: Primary Care Nurse Name: Juliano Hill DO Position: [facility] Resident Member Role: Resident Address: Address: [address] [place] [address], [address] [facility] [place] [address]- Name: Snow Locke Position: [facility] ED TA [facility] Member Role: Mobile Unit Assistant Name: Robby Trinidad MD Position: [facility] ED Medicine MD Member Role: Admitting Physician Address: Address: [address] [place] [address] [place] [address]- Name: Chava Regina Position: [facility] ED RN W/OE and Tasks Member Role: Patient Care Provider Care Team Related Persons Name: LISBETH- SOFT TILE SETTERINDRA Address: [address] [place] [address] Name: RIDE MECHANICGREGG Address: [address] [place] [address] Name: CARLOS PAZ Address: home [address] [place] [address]
--- OUTSIDE RECORDS SUMMARY | 2023-07-16 14:48 | XMS_ITS | Continuity of Care Document ---
Author Name Unknown Organization [facility] Adult Address [address] [place] [address]- Care Team Providers Care Dot Compliance Specialist Name Role Phone Maribel Marquez NP Primary Care Physician [phone] Encounter [facility] Date(s): 05/09/23 - 06/08/23 [facility] Adult [address] [place] [address]- Allergies, Adverse Reactions, Alerts Substance Reaction Severity [...] each, 5 Refills, Maintenance, 05/22/23 11:32:00 EDT, [facility], Partial fill upon patient request if the prescription is for a schedule II opioid drug., 2 puffs Inhal... Start Date: 05/22/23 Stop Date: 05/22/24 Status: Ordered albuterol CFC free 90 mcg/inh inhalation aerosol 90 mcg, 1, puffs, Inhalation, Every 4 hours, PRN, # 6.7 Gm, Refills 0, Tot. Refills 0, Maintenance,11/16/22 10:33:00 EST, Inhaler, Route to Pharmacy Electronically, [id number], [facility], 163, cm, 11/16/22 9:43:00 EST, Height, 97.3,... Start Date: 11/16/22 Status: Ordered atorvastatin 10 mg oral tablet 1 tablet = 10 mg, By Mouth, Daily at bedtime, # 30 tablet, 0 Refills, Maintenance, 11/16/22 10:33:00 EST, Tablet, [facility], Partial fill upon patient request if [...] 0 Refills, Maintenance, 11/16/22 10:33:00 EST, Tablet, [facility], Partial fill upon patient request if [...] 11/16/22 10:34:00 EST, Route to Pharmacy Electronically, [facility], Partial fill upon patient request if the prescription is for a schedule II opioid d... Start Date: 11/16/22 Stop Date: 08/13/23 Status: Ordered FLUoxetine 20 mg oral capsule 80 mg, 4, capsule, By Mouth, Daily in AM, # 120 capsule, Refills 0, Tot. Refills 0, Maintenance, 11/16/22 10:34:00 EST, Route to Pharmacy Electronically, [facility], Partial fill upon patient request if [...] 0 Refills, Maintenance, 11/16/22 10:34:00 EST, Tablet, [facility], Partial fill upon patient request if [...] 11/16/22 10:34:00 EST, Route to Pharmacy Electronically, [facility], Partial fill upon patient request if [...] 11:34:00 EDT, 05/22/23 11:32:00 EDT, ER Tablet, [facility], Partial fill upon patient request if the prescription is for a radha... Start Date: 05/22/23 Stop Date: 05/29/24 Status: Ordered nystatin topical 122145 u/gm cream 1 application, Topically, 2 times a day, # 15 Gm, 0 Refills, Maintenance, 01/05/23 15:04:00 EDT, Cream, [facility], Partial fill upon patient request if the prescription is for a schedule II opioid drug., 1 application Topically 2 times a da... Start Date: 01/05/23 Status: Ordered nystatin topical 109836 u/gm cream 0 Refills, Maintenance, 01/06/23 18:05:00 [...] Maintenance,11/16/22 10:34:00 EST, Route to Pharmacy Electronically, [facility], Partial fill upon patient request if [...] Team Personnel Name: Rudi Ruiz RN Position: [facility] ED RN W/OE and Tasks Member Role: Primary Care Nurse Name: Alicja Riggs RN Position: [facility] RN Member Role: Primary Care Nurse Name: Ros Fu RN Position: [facility] RN Member Role: Primary Care Nurse Name: Hilda Mccabe RN Position: [facility] RN Member Role: Primary Care Nurse Name: Rosana Kearney RN Position: [facility] SN RN Member Role: Primary Care Nurse Name: Wil Flood RN Position: [facility] RN Member Role: Primary Care Nurse Name: Gagandeep Sheldon RN Position: [facility] RN Member Role: Primary Care Nurse Name: Alba Daily RN Position: [facility] RN Member Role: Primary Care Nurse Name: Maribel Marquez NP Position: [facility] PCO Associate Professional Member Role: PCP Address: Address: [address] [place] [address]- Name: Jose Ramirez RN Position: [facility] RN Member Role: Primary Care Nurse Name: Brittany Butts RN Position: [facility] AMB Nurse Member Role: Primary Care Nurse Name: Pauline Mcadams RN Position: [facility] RN Member Role: Primary Care Nurse Name: Mary Sánchez RN Position: [facility] RN Member Role: Primary Care Nurse Name: Shama Rosado RN Position: [facility] RN Member Role: Primary Care Nurse Name: Jackie Snyder RN Position: [facility] RN Member Role: Primary Care Nurse Name: Jay Burks NP Position: Reference Physician Member Role: Primary Care Nurse Address: Address: [address] [place] [address] [address] Clinical & [place] [address]- [place] Name: Parvez Kaba MD Position: [facility] Renal MD Member Role: Lifetime Consulting Physician Address: Address: [address] [place] [address] [facility] [place] [address]- [place] Name: Mirna Paul RN Position: [facility] OB RN Member Role: Primary Care Nurse Name: Latonya Rahman RN Position: [facility] Onco RN Member Role: Primary Care Nurse Name: Viki Gonzalez RN Position: [facility] RN Member Role: Primary Care Nurse Name: Claudia Presley RN Position: [facility] RN Member Role: Primary Care Nurse Name: Iris Villa RN Position: [facility] Hospital Transportation Aid Member Role: Primary Care Nurse Care Team Related Persons Name: JO-ANN ROMANDENTAL MECHANICINDRA Address: [address] [place] [address] Name: BUS REPAIR SUPERVISORGREGG Address: home [address] [place] [address] Name: CARLOS PAZ Address: home [address] [place] [address]
--- OUTSIDE RECORDS SUMMARY | 2023-07-16 14:48 | XMS_ITS | Continuity of Care Document ---
Author Name Unknown Organization [facility] ter Address [address] [place] [id number]- Care Team Providers Care Communications Manager Name Role Phone Maribel Marquez NP Primary Care Physician [phone] Encounter [facility] Date(s): 06/25/23 - 06/26/[address] [address]- Encounter Diagnosis Suicidal ideation(Final) - 06/25/23 Discharge Disposition: A-D/C Home Attending Physician: Dylan [...] each, 5 Refills, Maintenance, 05/22/23 11:32:00 EDT, [facility], Partial fill upon patient request if the prescription is for a schedule II opioid drug., 2 puffs Inhal... Start Date: 05/22/23 Stop Date: 05/22/24 Status: Ordered albuterol CFC free 90 mcg/inh inhalation aerosol 90 mcg, 1, puffs, Inhalation, Every 4 hours, PRN, # 6.7 Gm, Refills 0, Tot. Refills 0, Maintenance,11/16/22 10:33:00 EST, Inhaler, Route to Pharmacy Electronically, NCPDP_[id number], [facility], 163, cm, 11/16/22 9:43:00 EST, Height, 97.3,... Start Date: 11/16/22 Status: Ordered atorvastatin 10 mg oral tablet 1 tablet = 10 mg, By Mouth, Daily at bedtime, # 30 tablet, 0 Refills, Maintenance, 11/16/22 10:33:00 EST, Tablet, [facility], Partial fill upon patient request if [...] 11/16/22 10:33:00 EST, Route to Pharmacy Electronically, [facility], Partial fill upon patientrequest if the [...] 0 Refills, Maintenance, 11/16/22 10:33:00 EST, Tablet, [facility], Partial fill upon patient request if [...] 11/16/22 10:34:00 EST, Route to Pharmacy Electronically, [facility], Partial fill upon patient request if [...] 60 tablet, 1 Refills, Maintenance,02/22/23 10:08:00 EDT, [facility], 146, cm, 02/05/23 20:22:00 EDT, Height, [...] 0 Refills, Maintenance, 11/16/22 10:34:00 EST, Tablet, [facility], Partial fill upon patient request if [...] 11:34:00 EDT, 05/22/23 11:32:00 EDT, ER Tablet, [facility], Partial fill upon patient request if the prescription is for a radha... Start Date: 05/22/23 Stop Date: 05/29/24 Status: Ordered nystatin topical 399909 u/gm cream 1 application, Topically, 2 times a day, # 15 Gm, 0 Refills, Maintenance, 01/05/23 15:04:00 EDT, Cream, [facility], Partial fill upon patient request if the prescription is for a schedule II opioid drug., 1 application Topically 2 times a da... Start Date: 01/05/23 Status: Ordered nystatin topical 576813 u/gm cream 0 Refills, Maintenance, 01/06/23 18:05:00 [...] 11/16/22 10:34:00 EST, Route to Pharmacy Electronically, [facility], Partial fill upon patient request if [...] Maintenance,11/16/22 10:34:00 EST, Route to Pharmacy Electronically, [facility], Partial fill upon patient request if [...] 3 Oxygen Saturation [94-100 %] 99 % (06/26/23 9:58 AM) 98 % (06/26/23 8:26 AM) 96 % (06/26/23 4:49 AM) Pulse Rate [55-90 bpm] 64 bpm (06/26/23 9:58 AM) 69 bpm (06/26/23 8:26 AM) 71 bpm (06/26/23 4:49 AM) Blood Pressure [90-138/55-84 mm Hg] 139/79mm Hg *H* (06/26/23 9:58 AM) 143/62mm Hg *H* (06/26/23 8:26 AM) 158/96mm Hg *H* (06/26/23 4:49 AM) Respiratory Rate [16-30 br/min] 20 br/min (06/26/23 9:58 AM) 20 br/min (06/26/23 8:26 AM) 16 br/min (06/26/23 4:49 AM) Temperature [96.8-100.4 DegF] 97.8 DegF (06/26/23 9:58 AM) 98 DegF (06/26/23 8:26 AM) 97.7 DegF (06/26/23 4:49 AM) Mode of Delivery (Oxygen) Room air (06/26/23 9:58 AM) Room air (06/26/23 8:26 AM) Room air (06/26/23 4:49 AM) Blood pressure sites Arm, right (06/26/23 9:58 AM) Arm, right (06/26/23 8:26 AM) Arm, left (06/26/23 4:49 AM) Temperature Route Oral (06/26/23 9:58 AM) Oral (06/26/23 8:26 AM) Oral (06/26/23 4:49 AM) Social History Social History Type Response Smoking Status 10 or more cigarette s (1/2 pack or more)/day in last 30 days; Type: Cigarettes; Other: Reports smoking 1/2-1 packs/day, ending on level of stress; Started at age: 25; entered on: 2/4/23 Sex Note * Dylan Andrews DO: SIGN, PERFORM, SIGN, VERIFY Event Display: Patient Education Handout Authored Date: [id number] Patient Care team information Care Team Personnel Name: Rudi Ruiz RN [facility] RN W/OE and Tasks Member Role: Primary Care Nurse Name: Alicja Riggs RN [facility] RN Member Role: Primary Care Nurse Name: Ros Fu RN Position: [facility] RN Member Role: Primary Care Nurse Name: Hilda Mccabe RN [facility] RN Member Role: Primary Care Nurse Name: Rosana Kearney RN Position: [facility] SN RN Member Role: Primary Care Nurse Name: Wil Flood RN Position: [facility] RN Member Role: Primary Care Nurse Name: Gagandeep Sheldon RN Position: [facility] RN Member Role: Primary Care Nurse Name: Alba Daily RN Position: [facility] RN Member Role: Primary Care Nurse Name: Jose Ramirez RN Position: [facility] ED RN W/OE and Tasks Member Role: Primary Care Nurse Name: Brittany Butts RN Position: [facility] AMB Nurse Member Role: Primary Care Nurse Name: Pauline Mcadams RN Position: [facility] RN Member Role: Primary Care Nurse Name: Mary Sánchez RN Position: [facility] RN Member Role: Primary Care Nurse Name: Shama Rosado RN Position: [facility] RN Member Role: Primary Care Nurse Name: Jackie Snyder RN Position: [facility] RN Member Role: Primary Care Nurse Name: Jay Burks NP Position: Reference Physician Member Role: Primary Care Nurse Address: Address: [address] [place] [address] Clinical & Support Options [address] Name: Parvez Kaba MD Position: [facility] Renal MD Member Role: Lifetime Consulting Physician Address: Address: [address] [place] [address] [facility] [address] Name: Mirna Paul RN Position: [facility] OB RN Member Role: Primary Care Nurse Name: Latonya Rahman RN Position: [facility] Onco RN Member Role: Primary Care Nurse Name: Viki Gonzalez RN Position[facility] RN Member Role: Primary Care Nurse Name: Claudia Presley RN Position: [facility] RN Member Role: Primary Care Nurse Name: Iris Villa RN Position: [facility] Hospital Customer Business Manager Member Role: Primary Care [facility]ending [facility] Attendings Patient Name: Shira Weller Position: [facility] TA [facility] Member Role: Latin Teacher Name: Dylan Andrews DO Position: [facility] ED Medicine MD Member Role: Admitting Physician Address: Address: [address] [place] [address] Emergency Medicine [address] Name: Rashmi Abdi RN Position: [facility] ED RN W/OE and Tasks Member Role: Patient Care Provider Name: Marie Nash RN Position: [facility] ED RN W/OE and Tasks Member Role: Patient Care Provider Care Team Related Persons Name: JO-ANN ROMANCOMPRESSED GAS TESTERINDRA Address: [address] [place] [address] Name: MOTOR TEACHERGREGG Address: [address] [place] [address] Name: CARLOS PAZ Address: home [address] [place] [id number]
--- OUTSIDE RECORDS SUMMARY | 2023-07-16 14:48 | XMS_ITS | Continuity of Care Document ---
Author Name Unknown Organization [facility] ter Address [address] [place] [address]- Care Team Providers Care Buckle Inspector Name Role Phone Maribel Marquez NP Primary Care Physician [place] [facility] [place](s): 07/08/23 - 07/09/[address] [address]- Encounter Diagnosis Borderline personality disorder(Final) - 07/09/23 Discharge Disposition: A-D/C Home Attending Physician: Daniela Andrews MD Admitting Physician: Daniela Andrews MD Referring Physician: Not on Staff, Referring MD Allergies, Adverse Reactions, Alerts Substance Reaction Severity Status codeine Active lithium 1 Active Geodon Active penicillin Active predniSONE Active sulfa drugs Active Macrobid Active Zithromax Active Seafood Active 1pt reports [...] each, 5 Refills, Maintenance, 05/22/23 11:32:00 EDT, [facility], Partial fill upon patient request if the prescription is for a schedule II opioid drug., 2 puffs Inhal... Start Date: 05/22/23 Stop Date: 05/22/24 Status: Ordered albuterol CFC free 90 mcg/inh inhalation aerosol 90 mcg, 1, puffs, Inhalation, Every 4 hours, PRN, # 6.7 Gm, Refills 0, Tot. Refills 0, Maintenance,11/16/22 10:33:00 EST, Inhaler, Route to Pharmacy Electronically, [id number], [facility], 163, cm, 11/16/22 9:43:00 EST, Height, 97.3,... Start Date: 11/16/22 Status: Ordered atorvastatin 10 mg oral tablet 1 tablet = 10 mg, By Mouth, Daily at bedtime, # 30 tablet, 0 Refills, Maintenance, 11/16/22 10:33:00 EST, Tablet, [facility], Partial fill upon patient request if [...] a day, # 60 tablet, Refills 0, Maintenance, 07/08/23 23:39:00 EDT, Partial fill upon patient request if the prescription is for a schedule II opioid drug. Start Date: 07/08/23 Status: Ordered benztropine 1 mg oral tablet [...] 0 Refills, Maintenance, 11/16/22 10:33:00 EST, Tablet, [facility], Partial fill upon patient request if [...] 11/16/22 10:34:00 EST, Route to Pharmacy Electronically, [facility], Partial fill upon patient request if [...] 02/12/23 10:51:00 EDT, Route to Pharmacy Electronically, [facility], Partial fill upon patient requestif the prescription is for a schedule II opioid kaela... Start Date: 02/12/23 Status: Ordered lisinopril 5 mg oral tablet Refills 0, Maintenance, 01/06/23 18:05:00 EDT, Partial fill upon patient request if the prescription is for a schedule II opioid drug. Start Date: 01/06/23 Status: Ordered lithium 300 mg oral capsule 1 capsule = 300 mg, By Mouth, Daily, 0 Refills, Maintenance, 07/08/23 23:40:00 EDT, Capsule, Partial fill upon patient request if the prescription is for a schedule II opioid drug. Start Date: 07/08/23 Status: Ordered Melatonin 5 mg oral tablet 2 tablet, By Mouth, Daily at bedtime, PRN NEEDED FOR SLEEP, # 60 tablet, 1 Refills, Maintenance,02/22/23 10:08:00 EDT, [facility], 146, cm, 02/05/23 20:22:00 EDT, Height, 115, kg, 02/05/23 20:22:00 EDT, Dry Weight Start Date: 02/22/23 Stop Date: 02/23/24 Status: Ordered metFORMIN 500 mg oral tablet 1 tablet = 500 mg, By Mouth, 2 times a day, # 180 tablet, 0 Refills, Maintenance, 07/08/23 23:39:00EDT, Tablet, Partial fill upon patient request if the prescription is for a schedule II opioid drug. Start Date: 07/08/23 Status: Ordered metFORMIN 500 mg oral tablet [...] 0 Refills, Maintenance, 11/16/22 10:34:00 EST, Tablet, [facility], Partial fill upon patient request if [...] 0 Refills, Maintenance, 11/16/22 10:34:00 EST, Tablet, [facility], Partial fill upon patient request if [...] 11/16/22 10:34:00 EST, Route to Pharmacy Electronically, [facility], Partial fill upon patient request if [...] 11:34:00 EDT, 05/22/23 11:32:00 EDT, ER Tablet, [facility], Partial fill upon patient request if the prescription is for a radha... Start Date: 05/22/23 Stop Date: 05/29/24 Status: Ordered nystatin topical 164066 u/gm cream 1 application, Topically, 2 times a day, # 15 Gm, 0 Refills, Maintenance, 01/05/23 15:04:00 EDT, Cream, [facility], Partial fill upon patient request if the prescription is for a schedule II opioid drug., 1 application Topically 2 times a da... Start Date: 01/05/23 Status: Ordered nystatin topical 889448 u/gm cream 0 Refills, Maintenance, 01/06/23 18:05:00 EDT, Partial fill upon patient request if the prescription is for a schedule II opioid drug. Start Date: 01/06/23 Status: Ordered pantoprazole 40 mg oral delayed release tablet 1 tablet = 40 mg, By Mouth, Daily, # 30 tablet, 0 Refills, Maintenance, 07/08/23 23:59:00 EDT, EC Tablet Start Date: 07/08/23 Status: Ordered pantoprazole 40 mg oral delayed [...] 11/16/22 10:34:00 EST, Route to Pharmacy Electronically, [facility], Partial fill upon patient request if [...] Maintenance,11/16/22 10:34:00 EST, Route to Pharmacy Electronically, [facility], Partial fill upon patient request if [...] [Reference Range]: 1 2 Height 163 cm (07/09/23 4:20 AM) 163 cm (07/08/23 8:45 PM) Oxygen Saturation [94-100 %] 97 % (07/09/23 4:20 AM) 98 % (07/08/23 8:45 PM) Pulse Rate [55-90 bpm] 78 bpm (07/09/23 4:20 AM) 85 bpm (07/08/23 8:45 PM) Blood Pressure [90-138/55-84 mm Hg] 136/ 85mm Hg (07/09/23 4:20 AM) 111/57mm Hg (07/08/23 8:45 PM) Respiratory Rate [16-30 br/min] 20 br/mi n (07/09/23 4:20 AM) 20 br/min (07/08/23 8:45 PM) Temperature [96.8-100.4 DegF] 98.6 DegF (07/09/23 4:20 AM) 97.9 DegF (07/08/23 8:45 PM) Mode of Delivery (Oxygen) Room air (07/09/23 4:20 AM) Room air (07/08/23 8:45 PM) Blood pressure sites Arm, right (07/09/23 4:20 AM) Temperature Route Oral (07/09/23 4:20 AM) Oral (07/08/23 8:45 PM) Social History Social History Type Response Smoking Status 10 or more cigarette s (1/2 pack or more)/day in last 30 days; Type: Cigarettes; Other: Reports smoking 1/2-1 packs/day, ending on level of stress; Started at age: 25; entered on: 11/18/22 Sex Patient Care team information Care Team Personnel Name: Rdui Ruiz RN Position: [facility] [...] Care Nurse Name: Alba Daily RN Position: [facility] RN Member Role: Primary Care Nurse Name: Maribel Marquez NP Position: [facility] PCO Associate Professional Member Role: PCP Address: Address: [address] [place] [id number] Name: Jose Ramirez RN [facility] [...] Member Role: Primary Care Nurse Name: Kimmie MAINTENANCE CONSTRUCTION HELPER, Jay Miles Position: Reference Physician Member Role: Primary Care Nurse Address: Address: [address] [facility] [address] Clinical & [place] [address]- [place] Name: Parvez Kaba MD Position: [facility] Renal MD Member Role: Lifetime Consulting Physician Address: Address: [address] [facility] [place] [address]- [place] Name: Mirna Paul RN Position: [facility] [...] Member Role: Primary Care Nurse Name: Iris iVlla RN Position: [facility] Hospital Mold Tooling Technician Member Role: Primary Care Nurse [facility] Attending Position: [facility] ED Attendings Patient Name: Daniela Andrews MD Position: [facility] ED Medicine MD Member Role: Admitting Physician Address: Address: [address] [place] [address] [place] [address]- [place] Name: Melissa Sue Position: [facility] ED TA [facility] Name: Rylee Hoskins RN Position: [facility] ED RN W/OE and Tasks Member Role: Patient Care Provider Care Team Related Persons Name: JO-ANN ROMANWHEEL BLOCKERINDRA Address: [address] [place] [address] Name: MEMBERSHIP ADMINISTRATORGREGG Address: [address] [place] [address] Name: CARLOS PAZ Address: home [address] [place] [address]
--- OUTSIDE RECORDS SUMMARY | 2023-07-16 14:48 | XMS_ITS | Continuity of Care Document ---
Author Name Unknown Organization [facility] Adult Address [address] [place] [address]- Care Team Providers Care Senior Test Engineer Name Role Phone Maribel Marquez NP Primary Care Physician [phone] [place] [facility] [place] - 07[place]26/22 [facility] Adult [address] [place] [id number]- Encounter Diagnosis Comprehensive diabetic foot examination, type 2 DM, encounter for(Discharge Diagnosis) - 07/19/22 Adult general medical exam(Discharge Diagnosis) - 07/19/22 Medicare annual wellness visit, subsequent(Discharge Diagnosis) - 07/19/22 Anemia, iron deficiency(Discharge Diagnosis) - 07/19/22 Asthma(Discharge Diagnosis) - 07/19/22 Borderline personality disorder(Discharge Diagnosis) - 07/19/22 Type 2 diabetes mellitus(Discharge Diagnosis) - 07/19/22 Depression, major, recurrent, severe with psychosis(Discharge Diagnosis) - 07/19/22 Chronic post-traumatic stress disorder (PTSD)(Discharge Diagnosis) - 07/19/22 Leg pain(Discharge Diagnosis) - 07/19/22 Attending Physician: Maribel Marquez NP Allergies, Adverse Reactions, Alerts Substance Reaction Severity Status codeine Active lithium 1 Active penicillin Active Macrobid Active predniSONE Active sulfa drugs Active Zithromax [...] tablet, 1 Refills, Maintenance, 07/24/22 15:17:00 EDT, [facility], 165.2, cm, 07/19/22 10:30:00 EDT, [...] a day, # 12 Gm, 1 Refills, [facility], 162, cm, 03/20/22 19:50:00 EDT, [...] 07/21/22 14:07:00 EDT, Route to Pharmacy Electronically, [facility], Partial fill upon patient requestif the prescription is for a schedule II opioid kaela... Start Date: 07/21/22 Stop Date: 04/17/23 Status: Ordered metFORMIN 500 mg oral tablet See Instructions, TAKE 1 EACH BY MOUTH 2 TIMES A DAY, # 60 tablet, 5 Refills, [facility],165, cm, 01/19/22 13:55:00 EDT, Height, 103, [...] 01/04/22 11:12:00 EDT, Route to Pharmacy Electronically, [facility], 165, cm, 12/19/21 10:41:00 EST, Height, 103, kg, 11/26/21 8:59:00 EST, Dr... Start Date: 01/04/22 Status: Ordered Nicoderm C-Q Clear 21 mg/24 hr transdermal film, extended release 1 patch, Topically, Daily, for 6 week(s), # 42 patch, 0 Refills, Acute 08/30/22 11:56:00 EST, 07/19/22 11:56:00 EDT, Patch, [facility], Partial fill upon patient request if the prescriptionis for a schedule II opioid drug., 165.2, cm, 07/19... Start Date: 07/19/22 Stop Date: 08/30/22 Status: Ordered Nicoderm C-Q Clear 7 mg/24 hr transdermal film, extended release 1 patch, Topically, Daily, for 14 days, # 14 patch, 0 Refills, Acute 08/02/22 11:56:00 EDT, 07/19/22 11:56:00 EDT, Patch, [facility], Partial fill upon patient request if the prescription is for a schedule II opioid drug., 165.2, cm, ... Start Date: 07/19/22 Stop Date: 08/02/22 Status: Ordered nicotine 4 mg oral transmucosal gum 1 each = 4 mg, Chew, Every 2 hours, PRN as needed for smoking cessation, for 2 week(s), # 160 each,0 Refills, Acute 08/02/22 11:57:00 EDT, 07/19/22 11:57:00 EDT, Gum, [facility], Partial fill upon patient request if the prescription is for... Start Date: 07/19/22 Stop Date: 08/02/22 Status: Ordered pantoprazole 40 mg oral delayed [...] 01/19/22 10:48:00 EDT, Route to Pharmacy Electronically, [facility], Partial fill upon patient request if the prescription is for a schedule... Start Date: 01/19/22 Status: Ordered ProAir HFA 90 mcg/inh inhalation aerosol 2 puffs, Inhalation, 4 times a day, PRN as needed for wheezing, # 6.7 Gm, 1 Refills, Maintenance, 06/23/22 16:17:00 EDT, Aerosol, [facility], Partial fill upon patient request [...] Refills, Maintenance, 05/09/21 8:45:00 EDT, SR Tablet, [facility], 165, cm, 04/11/21 7:42:00 EDT, [...] Confirmed Active 1Problem added by Discern Expert Diagnosis Diagnosis Type Effective Dates Health Status Clinical Service Informant Comprehensive diabetic foot examination, type 2 DM, encounter for Discharge Diagnosis 07/19/22 Adult general medical exam Discharge Diagnosis 07/19/22 Medicare annual wellness visit, subsequent Discharge Diagnosis 07/19/22 Anemia, iron deficiency Discharge Diagnosis 07/19/22 Asthma Discharge Diagnosis 07/19/22 Borderline personality disorder Discharge Diagnosis 07/19/22 Type 2 diabetes mellitus Discharge Diagnosis 07/19/22 Depression, major, recurrent, severe with psychosis Discharge Diagnosis 07/19/22 Chronic post-traumatic stress disorder (PTSD) Discharge Diagnosis 07/19/22 Leg pain Discharge Diagnosis 07/19/22 Vital Signs Most recent to oldest [Reference Range]: 1 Height 165.2 cm (10/5/22 10:30 AM) Weight 99.8 kg (07/19/22 10:30 AM) Oxygen Saturation [94-100 %] 98 % (07/19/22 10:30 AM) Pulse Rate [55-90 bpm] 90 bpm (07/19/22 10:30 AM) Body Mass Index [18.5-24.99 kg/m2] 36.57 kg/m2 *>HHI* (07/19/22 10:30 AM) Blood Pressure [90-138/55-84 mm Hg] 122/ 80mm Hg (07/19/22 10:30 AM) Temperature [96.8-100.4 DegF] 97.7 DegF (07/19/22 10:30 AM) Mode of Delivery (Oxygen) Room air (07/19/22 10:30 AM) Blood pressure sites Arm, left (07/19/22 10:30 AM) Temperature Route Oral (07/19/22 10:30 AM) Weight Obtained Via Standing scale (07/19/22 10:30 AM) Social History Social History Type Response Smoking Status 10 or more cigarette s (1/2 pack or more)/day in last 30 days; Other: 1PPD; entered on: 07/19/22 Sex Patient Care team information Personnel Name: Maribel Marquez NP Address: Address: [address] [place] [address]
--- OUTSIDE RECORDS SUMMARY | 2023-07-16 14:48 | XMS_ITS | Continuity of Care Document ---
Author Name Unknown Organization [facility] ter Address [address] [place] [id number]- Care Team Providers Care In Store Representative Name Role Phone Maribel Marquez NP Primary Care Physician Encounter [facility] [place] Date(s): 11/13/21 - 11/13/[address] [address]- Encounter Diagnosis Laceration of abdomen(Final) - 11/13/21 Discharge Disposition: A-D/C Home Attending Physician: Han Bolanos MD Admitting Physician: Han Bolanos MD Referring Physician: Not on Staff, Referring [...] 07/22/20 18:41:00 EDT, Route to Pharmacy Electronically, [facility], 163.5, cm, 07/22/20 18:29:00 EDT, Height, [...] 3 Refills, Maintenance, 05/09/21 8:41:00 EDT, Aerosol, [facility], 165, cm, 04/11/21 7:42:00 EDT, Height, [...] 05/09/21 8:43:00 EDT, Route to Pharmacy Electronically, [facility], 165, cm, 04/11/21 7:42:00 EDT, Height, [...] 04/11/21 9:38:00 EDT, Route to Pharmacy Electronically, [facility] [...] each, 1 Refills, Maintenance, 05/09/21 8:43:00 EDT,Tablet, [facility], Partial fill upon patient request if [...] 05/09/21 8:45:00 EDT, Route to Pharmacy Electronically, [facility], 165, cm, 04/11/21 7:42:00 EDT, Height, [...] Start Date: 11/08/21 Status: Ordered nystatin topical [id number] u/gm cream 1 application, Topically, 2 times [...] Gm, 5 Refills, Acute, 05/10/21 11:59:00 EDT, [facility], 15, TAKE 17 GM BY MOUTH [...] 0 Refills, Maintenance, 02/09/20 10:05:00 EDT, Inhaler, [facility], 165, cm, 02/08/20 19:47:00 EDT, Height, 104.5, kg, 02/07/20 8:15:00 EDT, Dry Weight Start Date: 02/09/20 Stop Date: 03/10/20 Status: Ordered verapamil 240 mg/12 hours oral tablet, extended release 1 tablet = 240 mg, By Mouth, Daily at bedtime, # 90 tablet, 1 Refills, Maintenance, 05/09/21 8:45:00 EDT, SR Tablet, [facility], 165, cm, 04/11/21 7:42:00 EDT, Height, [...] 3 Oxygen Saturation [94-100 %] 100 % (11/13/21 4:34 PM) 98 % (11/13/21 4:24 PM) 95 % (11/13/21 2:57 PM) Pulse Rate [55-90 bpm] 91 bpm *H* (11/13/21 4:34 PM) 92 bpm *H* (11/13/21 4:24 PM) 94 bpm *H* (11/13/21 2:57 PM) Blood Pressure [90-138/55-84 mm Hg] 130/74mm Hg (11/13/21 4:34 PM) 123/65mm Hg (11/13/21 4:24 PM) 115/72mm Hg (11/13/21 2:57 PM) Respiratory Rate [16-30 br/min] 20 br/min (11/13/21 4:34 PM) 20 br/min (11/13/21 4:24 PM) 18 br/min (11/13/21 2:57 PM) Temperature [96.8-100.4 DegF] 98.2 DegF (11/13/21 4:24 PM) 98 DegF (11/13/21 2:57 PM) 98.2 DegF (11/13/21 11:31 AM) Mode of Delivery (Oxygen) Room air (11/13/21 4:34 PM) Room air (11/13/21 4:24 PM) Room air (11/13/21 2:57 PM) Blood pressure sites Arm, left (11/13/21 4:34 PM) Arm, left (11/13/21 4:24 PM) Arm, right (11/13/21 2:57 PM) Temperature Route Oral (11/13/21 4:24 PM) Oral (11/13/21 2:57 PM) Oral (11/13/21 11:31 AM) Social History Social History Type Response Smoking Status 10 or more cigarette s (1/2 pack or more)/day in last 30 days; Type: Cigarettes; Other: Reports smoking 1/2-1 packs/day, ending on level of stress; Started at age: 25; entered on: 12/31/20 Sex
--- OUTSIDE RECORDS SUMMARY | 2023-07-16 14:48 | XMS_ITS | Continuity of Care Document ---
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 Start Date: 11/16/22 Status: Ordered atorvastatin 10 mg oral tablet 1 tablet = 10 mg, By Mouth, Daily at bedtime, # 30 tablet, 0 Refills, Maintenance, 11/16/22 10:33:00 EST, Tablet, [facility], Partial fill upon patient request if the prescription is for a schedule II opioid drug., 163, cm, 11/16/22 9:43:00... Start Date: 11/16/22 Status: Ordered benztropine 1 mg oral tablet 1 mg, 1, tablet, By Mouth, 2 times a day, # 60 tablet, Refills 0, Tot. Refills 0, Maintenance, 11/16/22 10:33:00 EST, Route to Pharmacy Electronically, [facility], Partial fill upon patientrequest if the prescription is for a schedule II op... Start Date: 11/16/22 Status: Ordered chlorproMAZINE 50 mg oral tablet 1 tablet = 50 mg, By Mouth, 3 times a day, PRN Anxiety, # 90 tablet, 0 Refills, Maintenance, 11/16/22 10:33:00 EST, Tablet, [facility], Partial fill upon patient request if the prescriptionis for a schedule II opioid drug., 163, cm, ... Start Date: 11/16/22 Status: Ordered ferrous sulfate 325 mg oral enteric coated tablet 325 mg, 1, tablet, By Mouth, Daily, # 90 tablet, Refills 2, Tot. Refills 2, Maintenance, 11/16/22 10:34:00 EST, Route to Pharmacy Electronically, [facility], Partial fill upon patient request if the prescription is for a schedule II opioid d... Start Date: 11/16/22 Stop Date: 08/13/23 Status: Ordered FLUoxetine 20 mg oral capsule 80 mg, 4, capsule, By Mouth, Daily in AM, # 120 capsule, Refills 0, Tot. Refills 0, Maintenance, 11/16/22 10:34:00 EST, Route to Pharmacy Electronically, [facility], Partial fill upon patient request if the prescription is for a schedule II... Start Date: 11/16/22 Status: Ordered fluPHENAZine 5 mg oral tablet 5 mg, 1, tablet, By Mouth, 2 times a day, # 60 tablet, Refills 0, Tot. Refills 0, Maintenance, 11/16/22 10:34:00 EST, Route to Pharmacy Electronically, [facility], Partial fill upon patientrequest if the prescription is for a schedule II op... Start Date: 11/16/22 Status: Ordered lisinopril 5 mg oral tablet 5 mg, Tablet, By Mouth, 11/19/22 9:00:00 EST Start Date: 11/19/22 Stop Date: 11/19/22 Status: Completed lisinopril 5 mg oral tablet 5 mg, 1, tablet, By Mouth, Daily, # 30 tablet, Refills 0, Tot. Refills 0, Maintenance, 11/16/22 10:34:00 EST, Route to Pharmacy Electronically, [facility], Partial fill upon patient requestif the prescription is for a schedule II opioid kaela... Start Date: 11/16/22 Status: Ordered metFORMIN 500 mg oral tablet 1 each = 500 mg, By Mouth, 2 times a day, # 60 tablet, 0 Refills, Maintenance, 11/16/22 10:34:00 EST, Tablet, [facility], Partial fill upon patient request if the prescription is for a schedule II opioid drug., 163, cm, 11/16/22 9:43:00 EST,... Start Date: 11/16/22 Status: Ordered mirtazapine 15 mg oral tablet 0.5 tablet = 7.5 mg, By Mouth, Daily at bedtime, # 15 tablet, 0 Refills, Maintenance, 11/16/22 10:34:00 EST, Tablet, [facility], Partial fill upon patient request if the prescription is fora schedule II opioid drug., 163, cm, 11/16/22 9:43:... Start Date: 11/16/22 Status: Ordered montelukast 10 mg oral tablet 10 mg, 1, tablet, By Mouth, Daily at bedtime, # 30 tablet, Refills 0, Tot. Refills 0, Maintenance, 11/16/22 10:34:00 EST, Route to Pharmacy Electronically, [facility], [...] oral capsule 4 mg, Capsule, By Mouth, 11/18/22 22:44:00 EST Start Date: 11/18/22 Stop Date: 11/19/22 Status: Completed prazosin 1 mg oral capsule 4 mg, 4, capsule, By Mouth, Daily at bedtime, # 120 capsule, Refills 0, Tot. Refills 0, Maintenance, 11/16/22 10:34:00 EST, Route to Pharmacy Electronically, [facility], Partial fill upon patient request if the prescription is for a schedule... Start Date: 11/16/22 Status: Ordered traZODone 50 mg oral tablet 150 mg, 3, tablet, By Mouth, Daily at bedtime, # 90 tablet, Refills 0, Tot. Refills 0, Maintenance,11/16/22 10:34:00 EST, Route to Pharmacy Electronically, [facility], Partial fill upon patient request if [...] Active 1Problem added by Discern Expert Results Orders for Microbiology Reports Name Date Urine Culture (URINE CULTURE) 11/18/22 Microbiology Reports TEST:Urine Culture STATUS:Unauthenticated BODY SITE: SOURCE:URINE COLLECTED DATE/TIME:11/18/22 10:20 PM Urine Culture SPECIMEN DESCRIPTION : URINE SPECIAL REQUESTS : NONE Reflexed from [id number] REPORT STATUS : PRELIMINARY REPORT Vital Signs Most recent to oldest [Reference Range]: 1 2 3 Height 165 cm (11/19/22 6:27 AM) 165 cm (11/18/22 9:26 PM) Weight 95.4 kg (11/19/22:27 AM) 95.4 kg (11/18/22 9:26 PM) Oxygen Saturation [94-100 %] 97 % (11/19/22: AM) 95 % (11/18/22 11:20 PM) 97 % (11/18/22:31 PM) Pulse Rate [55-90 bpm] 77 bpm (11/19/22: AM) 84 bpm (11/18/22 11:20 PM) 97 bpm *H* (11/18/22:31 PM) Body Mass Index [18.5-24.99 kg/m2] 35.04 kg/m2 *>HHI* (11/19/22 6: AM) Blood Pressure [90-138/55-84 mm Hg] 98/64mm Hg (11/19/22 9:04 AM) 98/64mm Hg (11/19/22 6:27 AM) 132/76mm Hg (11/19/22 12:29 AM) Respiratory Rate [16-30 br/min] 18 br/min (11/19/22 6:27 AM) 16 br/min (11/18/22 11:20 PM) 20 br/min (11/18/22 9:31 PM) Temperature [96.8-100.4 DegF] 98 DegF (11/19/22: AM) 98.7 DegF (11/18/22:31 PM) Mode of Delivery (Oxygen) Room air (11/19/22 6:27 AM) Room air (11/18/22 11:20 PM) Room air (11/18/22 9:31 PM) Blood pressure sites Arm, left (11/19/22 6:27 AM) Arm, right (11/18/22 9:31 PM) Temperature Route Oral (11/19/22 6:27 AM) Oral (11/18/22 9:31 PM) Dry Weight 95.4 kg (11/19/22 6:27 AM) 95.4 kg (2/4/23 9:26 PM) Social History Social History Type Response Smoking Status 10 or more cigarette s (1/2 pack or more)/day in last 30 days; Type: Cigarettes; Other: Reports smoking 1/2-1 packs/day, ending on level of stress; Started at age: 25; entered on: 11/18/22 Sex Note * Nini Patel MD: PERFORM, SIGN, VERIFY Event Display: Patient Education Handout Authored Date: * Nini Patel MD: PERFORM Event Display: Patient Education Leaflets Authored Date: Depression ?? [id number] Depression Depression is a very common mental [...] medicines you take. This includes prescription and eavv-hba-jgyjxej medicines. It includes vitamins and herbal supplements. [...] An online chat option is also available. [employer] is free and available 07/05. 988 counselors will work with 911 to help you get the care you need. Call 988 if you: ??? Have suicidal thoughts, a suicide plan, and a way to carry out the plan ??? Have serious thoughts of hurting someone else ??? Have trouble breathing ??? Are??very confused [...] help ?? Last Reviewed Date: 2022 ?? [id number] The [employer]. All rights reserved. This information is not intended as a substitute for professional medical care. Always follow your healthcare professional's instructions. ?? Patient Care team information Care Team Personnel Name: Rudi Ruiz RN Position: [facility] ED RN W/OE and Tasks Member Role: Primary Care Nurse Name: Alicja Riggs RN Position: [facility] RN Member Role: Primary Care Nurse Name: Harmony Pagan Position: [facility] RN Member Role: Primary Care Nurse Name: Ros Fu RN Position: [facility] RN Member Role: Primary Care Nurse Name: Hilda Mccaeb RN Position: [facility] RN Member Role: Primary Care Nurse Name: Rosana Kearney RN Position: [facility] AMB Nurse Member Role: Primary Care Nurse Name: Wil Flood RN Position: [facility] RN Member Role: Primary Care Nurse Name: Gagandeep Sheldon RN Position: [facility] RN Member Role: Primary Care Nurse Name: Chip Morton Position: [facility] Outreach Member Role: Lifetime Consulting Physician Name: Alba Daily RN Position: [facility] RN Member Role: Primary Care Nurse Name: Maribel Marquez NP Position: [facility] PCO Associate Professional Member Role: PCP Address: Address: [address] [place] [address]- Name: Jose Ramirez RN Position: [facility] RN Member Role: Primary Care Nurse Name: Brittany Butts RN Position: [facility] AMB Nurse Member Role: Primary Care Nurse Name: Pauline Mcadams RN Position: [facility] RN Member Role: Primary Care Nurse Name: Mary Sánchez RN Position: [facility] RN Member Role: Primary Care Nurse Name: Shama Rosado RN Position: [facility] RN Member Role: Primary Care Nurse Name: Jackie Snyder RN Position: [facility] RN Member Role: Primary Care Nurse Name: Jay Burks NP Position: Reference Physician Member Role: Primary Care Nurse Address: Address: [address] Clinical & [place] [address]- [place] Name: Parvez Kaba MD Position: [facility] Renal MD Member Role: Lifetime Consulting Physician Address: Address: [address] [place] [address] [facility] [place] [address]- Name: Yoana Ledezma RN Position: [facility] RN Member Role: Primary Care Nurse Name: Mirna Paul RN Position: [facility] OB RN Member Role: Primary Care Nurse Name: Latonya Rahman RN Position: [facility] Onco RN Member Role: Primary Care Nurse Name: Viki Gonzalez RN Position: [facility] RN Member Role: Primary Care Nurse Name: Claudia Presley RN Position: [facility] RN Member Role: Primary Care Nurse Name: Iris Villa RN Position: [facility] Hospital Wholesaler Member Role: Primary Care Nurse Name: [facility] Attending Position: [facility] ED Attendings Patient Name: Nini Patel MD Position: [facility] ED Medicine MD Member Role: Admitting Physician Address: Address: [address] [place] [address] [place] [address]- [place] Name: Rudi Ruiz RN Position: [facility] ED RN W/OE and Tasks Member Role: Patient Care Provider Care Team Related Persons Name: JO-ANN ROMANPICKED EDGE SEWING MACHINE OPERATORINDRA Address: [address] [place] [address] Name: BEEF TRIMMERGREGG Address: [address] [place] [address] Name: CARLOS PAZ Address: home [address] [place] [address]
--- OUTSIDE RECORDS SUMMARY | 2023-07-16 14:48 | XMS_ITS | Continuity of Care Document ---
Author Name Unknown Organization [facility] ter Address [address] [place] [id number]- Care Team Providers Care Med Dir Name Role Phone Michelle Norris MD Primary Care Physician Encounter [facility] [place] Date(s): 10/16/20 - 10/16/[address] [phone]- Encounter Diagnosis Chest pain(Final) - 10/16/20 Discharge Disposition: A-D/C Home Attending Physician: Dylan [...] 0 Refills, Maintenance, 02/09/20 10:07:00 EDT, Tablet, [facility], 165, cm, 02/08/20 19:47:00 EDT, Height, [...] 0 Refills, Maintenance, 02/09/20 10:08:00 EDT, Tablet, [facility], 165, cm, 02/08/20 19:47:00 EDT, Height, 104.5, kg,02/07/20 8:15:00 EDT, Dry Weight Start Date: 02/09/20 Status: Ordered Claritin 10 mg oral tablet 10 mg, 1, tablet, By Mouth, Daily, # 30 tablet, Refills 0, Tot. Refills 0, Maintenance, 02/09/20 10:10:00 EDT, Route to Pharmacy Electronically, [facility], 165, cm, 02/08/20 19:47:00 EDT, Height, 104.5, kg, 02/07/20 8:15:00 EDT, Dry Weight Start Date: 02/09/20 Status: Ordered Colace sodium 100 mg oral capsule 100 mg, 1, capsule, By Mouth, 2 times a day, PRN, # 60 capsule, Refills 0, Tot. Refills 0, Maintenance, Constipation, 02/09/20 10:08:00 EDT, Route to Pharmacy Electronically, [facility], 165, cm, 02/08/20 19:47:00 EDT, Height, [...] 09/24/20 9:06:00 EST, Route to Pharmacy Electronically, [facility], Partial fill upon patient request if the prescription is for a schedule II opioid . Start Date: 09/24/20 Status: Ordered Flonase 50 mcg/inh nasal spray 1 sprays = 50 mcg, Nares, Both, 2 times a day, # 16 Gm, 0 Refills, Maintenance, 02/09/20 10:09:00 EDT, Nasal [place], [facility], 1 sprays Nares, Both 2 times a day,x30 days, 165, cm, 02/08/20 19:47:00 EDT, Height, 104.5, kg, 02/07/20 8:15:00... Start Date: 02/09/20 Stop Date: 03/10/20 Status: Ordered Flovent HFA 110 mcg/inh inhalation aerosol 2 puffs = 220 mcg, Inhalation, 2 times a day, # 1 each, 0 Refills, Maintenance, 02/09/20 10:06:00 EDT, Aerosol, [facility], 165, cm, 02/08/20 19:47:00 EDT, Height, 104.5, kg, 02/07/20 8:15:00 EDT, Dry Weight Start Date: 02/09/20 Status: Ordered Haldol Decanoate decanoate 100 mg/ml injectable solution = 100 mg, Intramuscular, Every 28 days, last dose given on 09/17/2020. Next due 10/15/20., # 1 each, 0Refills, Soft Stop, 07/22/20 18:42:00 EDT, Solution, [facility], 163.5, cm, 07/22/20 18:29:00 EDT, Height, [...] 02/09/20 10:10:00 EDT, Route to Pharmacy Electronically, [facility], 165, cm, 02/08/20 19:47:00 EDT, Height, [...] 0 Refills, Maintenance, 09/24/20 9:06:00 EST, Tablet, [facility], Partial fill upon patient request if the prescription is for a schedule II opioid drug., 165, cm, 09/23/20 19:58:00 ES... Start Date: 09/24/20 Status: Ordered montelukast 10 mg oral tablet 10 mg, 1, tablet, By Mouth, Daily, # 30 tablet, Refills 0, Tot. Refills 0, Maintenance, 02/09/20 10:11:00 EDT, Route to Pharmacy Electronically, [facility], 165, cm, 02/08/20 19:47:00 EDT, Height, [...] 0 Refills, Maintenance, 02/09/20 10:07:00 EDT, Tablet, [facility], 165, cm, 02/08/20 19:47:00 EDT, Height, [...] Refills, Maintenance, 09/24/20 9:09:00 EST, REC Powder, [facility], [...] 0 Refills, Maintenance, 02/09/20 10:05:00 EDT, Inhaler, [facility], 165, cm, 02/08/20 19:47:00 EDT, Height, 104.5, kg, 02/07/20 8:15:00 EDT, Dry Weight Start Date: 02/09/20 Stop Date: 03/10/20 Status: Ordered verapamil 240 mg/12 hours oral tablet, extended release 1 tablet = 240 mg, By Mouth, Daily at bedtime, # 30 tablet, 0 Refills, Maintenance, 02/09/20 10:14:00 EDT, SR Tablet, [facility], 165, cm, 02/08/20 19:47:00 EDT, Height, [...] major depressive episode(Confirmed) Active Tobacco dependence(Confirmed) Active Results Radiology Reports * Exam Date Time Procedure Performing Provider Status 10/16/20 1:53 PM Chest Portable Harmony Ramirez; Auth (V erified) Notes: (Chest Portable) Reason For Exam: Angina RESULT: Chest Portable Chest Portable Hx of Present Illness: Diffuse chest pain started yesterday. Denies n v.; Reason: Angina; Clinical Question(s): Pleural Effusion COMPARISON: 10/23/2019 FINDINGS: LINES AND TUBES: None. LUNGS AND PLEURA: No pneumothorax. No pleural effusion. The lungs are clear. Pulmonary vascularity is normal. HEART, MEDIASTINUM AND HENRY: Heart is normal in size. Normal mediastinal silhouette. BONES AND SOFT TISSUES: No acute bony abnormalities. IMPRESSION: No acute abnormality. WSN: [id number] Ordering Physician: Lopez Arriaga Dictated By: Milton Prieto MD Dictated Date/Time: 10/16/20 2:17 pm Reviewed By: Milton Prieto MD Signed By: Milton Prieto MD Signed Date/Time: 10/16/20 2:17 pm Transcribed By: DAVIS Transcribed Date/Time: 10/16/20 2:16 pm Vital Signs Most recent to oldest [Reference Range]: 1 2 Oxygen Saturation [94-100 %] 98 % (10/16/20 3:45 PM) 98 % (10/16/20 1:10 PM) Pulse Rate [55-90 bpm] 90 bpm (10/16/20 1:10 PM) Blood Pressure [90-138/55-84 mm Hg] 141/ 78mm Hg *H* (10/16/20 3:45 PM) 148/86mm Hg *H* (10/16/20 1:10 PM) Respiratory Rate [16-30 br/min] 16 br/mi n (10/16/20 3:45 PM) 15 br/min *L* (10/16/20 1:10 PM) Temperature [96.8-100.4 DegF] 99.0 DegF (10/16/20 1:10 PM) Mode of Delivery (Oxygen) Room air (10/16/20 3:45 PM) Room air (10/16/20 1:10 PM) Blood pressure sites Arm, left (10/16/20 3:45 PM) Arm, left (10/16/20 1:10 PM) Temperature Route Oral (10/16/20 1:10 PM) Social History Social History Type Response Smoking Status 10 or more cigarette s (1/2 pack or more)/day in last 30 days; Use: smokes 1 pack a day entered on: 05/10/19 Sex
--- OUTSIDE RECORDS SUMMARY | 2023-07-16 14:48 | XMS_ITS | Continuity of Care Document ---
Author Name Unknown Organization [facility] ter Address [address] [place] [id number]- Care Team Providers Care Manager Business Systems Name Role Phone Maribel Marquez NP Primary Care Physician Encounter [facility] [place] Date(s): 09/16/21 - 09/17/[address] [address]- Discharge Disposition: A-D/C Home Attending Physician: Mike [...] 0 Refills, Maintenance, 06/28/21 10:16:00 EDT, Tablet, [facility], Partial fill upon patient request if [...] 0 Refills, Maintenance, 02/09/20 10:08:00 EDT, Tablet, [facility], 165, cm, 02/08/20 19:47:00 EDT, Height, 104.5, kg,02/07/20 8:15:00 EDT, Dry Weight Start Date: 02/09/20 Status: Ordered doxazosin 1 mg oral tablet 3 mg, 3, tablet, By Mouth, Daily at bedtime, # 90 tablet, Refills 0, Tot. Refills 0, Maintenance, 07/22/20 18:41:00 EDT, Route to Pharmacy Electronically, [facility], 163.5, cm, 07/22/20 18:29:00 EDT, Height, 102.5, kg, 07/18/20 21:04:00 EDT... Start Date: 07/22/20 Status: Ordered ferrous sulfate 325 mg oral enteric coated tablet 325 mg, 1, tablet, By Mouth, Daily, # 90 tablet, Refills 2, Tot. Refills 2, Maintenance, 04/11/21 9:22:00 EDT, Route to Pharmacy Electronically, [facility], Partial fill upon patient request if the prescription is for a schedule II opioid Start Date: 04/11/21 Stop Date: 01/06/22 Status: Ordered Flovent HFA 110 mcg/inh inhalation aerosol 2 puffs = 220 mcg, Inhalation, 2 times a day, # 3 each, 3 Refills, Maintenance, 05/09/21 8:41:00 EDT, Aerosol, [facility], 165, cm, 04/11/21 7:42:00 EDT, Height, 102.6, kg, 02/12/21 12:14:00 EDT, Dry Weight Start Date: 05/09/21 Status: Ordered Haldol Decanoate decanoate 100 mg/ml injectable solution = 100 mg, Intramuscular, Every 28 days, last dose given on 09/17/2020. Next due 10/15/20., # 1 each, 0Refills, Soft Stop, 07/22/20 18:42:00 EDT, Solution, [facility], 163.5, cm, 07/22/20 18:29:00 EDT, Height, 102.5, kg, 07/18/20 21:04:00 EDT,... Start Date: 07/22/20 Status: Ordered ibuprofen 600 mg oral tablet 600 mg, 1, tablet, By Mouth, Every 6 hours, PRN, # 120 tablet, Refills 0, Tot. Refills 0, Maintenance, Headache, 08/08/21 7:41:00 EDT, Route to Pharmacy Electronically, [facility], Partial fill upon patient request if the prescription is for... Start Date: 08/08/21 Stop Date: 09/07/21 Status: Ordered lisinopril 5 mg oral tablet 5 mg, Tablet, By Mouth, 09/17/21 9:00:00 EST Start Date: 09/17/21 Stop Date: 09/17/21 Status: Completed lisinopril 5 mg oral tablet 5 mg, 1, tablet, By Mouth, Daily, # 90 tablet, Refills 1, Tot. Refills 1, Maintenance, 05/09/21 8:43:00 EDT, Route to Pharmacy Electronically, [facility], 165, cm, 04/11/21 7:42:00 EDT, Height, 102.6, kg, 02/12/21 12:14:00 EDT, Dry Weight Start Date: 05/09/21 Status: Ordered loratadine 10 mg oral tablet 10 mg, 1, tablet, By Mouth, Daily, # 90 tablet, Refills 3, Tot. Refills 3, Maintenance, 04/11/21 9:38:00 EDT, Route to Pharmacy Electronically, [facility], Partial fill upon patient requestif the [...] 05/09/21 8:45:00 EDT, Route to Pharmacy Electronically, [facility], 165, cm, 04/11/21 7:42:00 EDT, Height, [...] Gm, 5 Refills, Acute, 05/10/21 11:59:00 EDT, [facility], 15, TAKE 17 GM BY MOUTH [...] Refills, Maintenance, 02/09/20 10:05:00 EDT, Inhaler, [facility], 165, cm, 02/08/20 19:47:00 EDT, Height, 104.5, kg, 02/07/20 8:15:00 EDT, Dry Weight Start Date: 02/09/20 Stop Date: 03/10/20 Status: Ordered verapamil 240 mg/12 hours oral tablet, extended release 1 tablet = 240 mg, By Mouth, Daily at bedtime, # 90 tablet, 1 Refills, Maintenance, 05/09/21 8:45:00 EDT, SR Tablet, [facility], 165, cm, 04/11/21 7:42:00 EDT, Height, [...] 3 Oxygen Saturation [94-100 %] 97 % (09/17/21 9:21 AM) 97 % (09/17/21 5:58 AM) 96 % (09/16/21 7:51 PM) Pulse Rate [55-90 bpm] 70 bpm (09/17/21 9:21 AM) 68 bpm (09/17/21 5:58 AM) 110 bpm *H* (09/16/21 7:51 PM) Blood Pressure [90-138/55-84 mm Hg] 122/76mm Hg (09/17/21 9:21 AM) 120/80mm Hg (09/17/21 8:11 AM) 120/80mm Hg (09/17/21 5:58 AM) Respiratory Rate [16-30 br/min] 17 br/min (09/17/21 9:21 AM) 16 br/min (09/17/21 5:58 AM) Temperature [96.8-100.4 DegF] 98.5 DegF (09/17/21 5:58 AM) 98.0 DegF (09/16/21 7:51 PM) Mode of Delivery (Oxygen) Room air (09/17/21 9:21 AM) Room air (09/17/21 5:58 AM) Room air (09/16/21 7:51 PM) Blood pressure sites Arm, left (09/17/21 9:21 AM) Arm, left (09/17/21 5:58 AM) Temperature Route Oral (09/17/21 5:58 AM) Oral (09/16/21 7:51 PM) Social History Social History Type Response Smoking Status 10 or more cigarette s (1/2 pack or more)/day in last 30 days; Type: Cigarettes; Other: Reports smoking 1/2-1 packs/day, ending on level of stress; Started at age: 25; entered on: 12/31/20 Sex
--- OUTSIDE RECORDS SUMMARY | 2023-07-16 14:48 | XMS_ITS | Continuity of Care Document ---
Author Name Unknown Organization [facility] ter Address [address] [place] [id number]- Care Team Providers Care Research Specialist Name Role Phone Maribel Marquez NP Primary Care Physician Encounter [facility] [place] Date(s): 02/08/22 - 02/09/[address] [address]- Encounter Diagnosis Acute constipation(Final) - 02/08/22 Suicidal ideation(Final) - 02/08/22 Borderline personality disorder(Final) - 02/08/22 Deliberate self-cutting(Final) - 02/08/22 Discharge Disposition: A-D/C Home Attending Physician: Dylan [...] tablet, 0 Refills, Maintenance, 01/04/22 11:12:00 EDT, [facility], Partial fill upon patient request if [...] 04/11/21 9:22:00 EDT, Route to Pharmacy Electronically, [facility], Partial fill upon patient request if the prescription is for a schedule II opioid . Start Date: 04/11/21 Stop Date: 01/06/22 Status: Ordered Flovent HFA 110 mcg/inh inhalation aerosol 2 puffs, Inhalation, 2 times a day, # 12 Gm, 2 Refills, [facility], 165, cm, 12/19/21 10:41:00 EST, Height, 103, kg, 11/26/21 8:59:00 EST, Dry Weight Start Date: 12/27/21 Status: Ordered hydrOXYzine hydrochloride 50 mg oral tablet 1 tablet = 50 mg, By Mouth, Daily, PRN as needed, Maintenance, 11/08/21 12:56:00 EST, ; Start Date: 11/08/21 Status: Ordered lisinopril 5 mg oral tablet 5 mg, Tablet, By Mouth, 02/09/22 9:00:00 EDT Start Date: 02/09/22 Stop Date: 02/09/22 Status: Completed lithium 450 mg oral tablet, extended release [...] 04/04/22 12:34:00 EDT, 01/04/22 12:34:00 EDT, Tablet, [facility], Partial fill upon patient request if the prescription is f... Start Date: 01/04/22 Stop Date: 04/04/22 Status: Ordered metFORMIN 500 mg oral tablet See Instructions, TAKE 1 EACH BY MOUTH 2 TIMES A DAY, # 60 tablet, 5 Refills, [facility],165, cm, 01/19/22 13:55:00 EDT, Height, 103, [...] 14:30:00 EDT, 01/30/22 14:10:00 EDT, REC Powder, [facility], Partialfill upon patient request if the [...] 01/04/22 11:12:00 EDT, Route to Pharmacy Electronically, [facility], 165, cm, 12/19/21 10:41:00 EST, Height, 103, kg, 11/26/21 8:59:00 EST, Start Date: 01/04/22 Status: Ordered nicotine 21 mg/24 hr transdermal film, extended release 1 patch, Topically, Daily, for 30 days, # 30 patch, 0 Refills, Acute 02/18/22 14:31:00 EDT, 01/19/22 14:31:00 EDT, Patch, [facility], Partial fill upon patient request if [...] 01/19/22 10:48:00 EDT, Route to Pharmacy Electronically, [facility] [...] Refills, Maintenance, 05/09/21 8:45:00 EDT, SR Tablet, [facility], 165, cm, 04/11/21 7:42:00 EDT, Height, 102.6, kg, 02/12/21 12:14:00 EDT, Dry Weight Start Date: 05/09/21 Status: Ordered Verapamil SR Tablet 240 mg, SR Tablet, By Mouth, 02/09/22 9:00:00 EDT Start Date: 02/09/22 Stop Date: 02/09/22 Status: Completed Problem List Condition Effective Dates [...] Exam Date Time Procedure Performing Provider Status 02/08/22 9:04 PM Chest 2 Views Frontal and Lat Bein , D victor manuel; Auth (Verified) Notes: (Chest 2 Views Frontal and Lat) Reason For Exam: Shortness of Breath RESULT: Chest 2 Views Frontal and Lat Chest 2 Views Frontal and Lat Hx of Present Illness: pt reports she is seeing shadows that are going to shoot her, that she is feeling suicidal with plan to cut herself, superficial abrasions to bilateral forearms, also reports LUQ abd pain radiating to L flank.; Reason: Shortness of Breath; Clinical Question(s): CHF COMPARISON: 02/06/2022 FINDINGS: LINES AND TUBES: None. LUNGS AND PLEURA: Clear lungs. Normal pulmonary vascularity. No pleural effusion. No pneumothorax. HEART, MEDIASTINUM AND HENRY: Heart is normal in size. Normal upper mediastinal and hilar contour. BONES AND SOFT TISSUES: No acute abnormality. IMPRESSION: No acute abnormality. WSN: [id number] Ordering Physician: Arleth Arellano Dictated By: Rk Rocha MD Dictated Date/Time: 02/08/22 9:09 pm Reviewed By: Rk Rocha MD Signed By: Rk Rocha MD Signed Date/Time: 02/08/22 9:09 pm Transcribed By: DAVIS Transcribed Date/Time: 02/08/22 9:07 pm Vital Signs Most recent to oldest [Reference Range]: 1 2 3 Oxygen Saturation [94-100 %] 97 % (02/09/22 10:00 AM) 96 % (02/09/22 9:32 AM) 95 % (02/09/22 8:45 AM) Pulse Rate [55-90 bpm] 78 bpm (02/09/22 10:00 AM) 73 bpm (02/09/22 9:43 AM) 82 bpm (02/09/22 8:45 AM) Blood Pressure [90-138/55-84 mm Hg] 116/76mm Hg (02/09/22 10:00 AM) 114/80mm Hg (02/09/22 9:32 AM) 116/82mm Hg (02/09/22 8:45 AM) Respiratory Rate [16-30 br/min] 17 br/min (02/09/22 10:00 AM) 16 br/min (02/09/22 9:32 AM) 16 br/min (02/09/22 8:45 AM) Temperature [96.8-100.4 DegF] 97.5 DegF (02/09/22 10:00 AM) 97.5 DegF (02/09/22 9:32 AM) 97.5 DegF (02/09/22 8:45 AM) Mode of Delivery (Oxygen) Room air (02/09/22 10:00 AM) Room air (02/09/22 9:32 AM) Room air (02/09/22 8:45 AM) Blood pressure sites Arm, left (02/09/22 10:00 AM) Arm, left (02/09/22 9:32 AM) Arm, left (02/09/22 8:45 AM) Temperature Route Oral (02/09/22 10:00 AM) Oral (02/09/22 9:32 AM) Oral (02/09/22 8:45 AM) Social History Social History Type Response Smoking Status 10 or more cigarette s (1/2 pack or more)/day in last 30 days; Type: Cigarettes; Other: Reports smoking 1/2-1 packs/day, ending on level of stress; Started at age: 25; entered on: 12/31/20 Sex
--- OUTSIDE RECORDS SUMMARY | 2023-07-16 14:49 | XMS_ITS | Continuity of Care Document ---
Author Name Unknown Organization [facility] ter Address [address] [place] [id number]- Care Team Providers Care [employer] Employee Name Role Phone Maribel Marquez NP Primary Care Physician Encounter [facility] [place] Date(s): 02/25/22 - 02/26/[address] [address]- Encounter Diagnosis Suicidal ideation(Final) - 02/26/22 Visual hallucination(Final) - 02/26/22 Auditory hallucinations(Final) - 02/26/22 Discharge Disposition: A-D/C Home Attending Physician: Dylan Andrews DO Admitting Physician: Dylan Andrews DO Referring Physician: Not on Staff, Referring MD Allergies, Adverse Reactions, Alerts Substance Reaction Severity Status codeine Active lithium 1 Active penicillin Active sulfa drugs Active predniSONE Active Macrobid Active Zithromax Active [...] tablet, 0 Refills, Maintenance, 01/04/22 11:12:00 EDT, [facility], Partial fill upon patient request if [...] 04/11/21 9:22:00 EDT, Route to Pharmacy Electronically, [facility], Partial fill upon patient request if the prescription is for a schedule II opioid . Start Date: 04/11/21 Stop Date: 01/06/22 Status: Ordered Flovent HFA 110 mcg/inh inhalation aerosol 2 puffs, Inhalation, 2 times a day, # 12 Gm, 2 Refills, [facility], 165, cm, 12/19/21 10:41:00 EST, Height, [...] 04/04/22 12:34:00 EDT, 01/04/22 12:34:00 EDT, Tablet, [facility], Partial fill upon patient request if the prescription is f... Start Date: 01/04/22 Stop Date: 04/04/22 Status: Ordered metFORMIN 500 mg oral tablet See Instructions, TAKE 1 EACH BY MOUTH 2 TIMES A DAY, # 60 tablet, 5 Refills, [facility],165, cm, 01/19/22 13:55:00 EDT, Height, 103, [...] 01/04/22 11:12:00 EDT, Route to Pharmacy Electronically, [facility], 165, cm, 12/19/21 10:41:00 EST, Height, [...] Refills, Maintenance, 05/09/21 8:45:00 EDT, SR Tablet, [facility], 165, cm, 04/11/21 7:42:00 EDT, Height, [...] 3 Oxygen Saturation [94-100 %] 98 % (02/26/22 1:44 PM) 97 % (02/26/22 9:16 AM) 95 % (02/26/22 4:38 AM) Pulse Rate [55-90 bpm] 77 bpm (02/26/22 1:44 PM) 84 bpm (02/26/22 9:16 AM) 71 bpm (02/26/22 4:38 AM) Blood Pressure [90-138/55-84 mm Hg] 118/82mm Hg (02/26/22 1:44 PM) 129/96mm Hg (02/26/22 9:16 AM) 135/90mm Hg (02/26/22 4:38 AM) Respiratory Rate [16-30 br/min] 18 br/min (02/26/22 1:44 PM) 18 br/min (02/26/22 9:16 AM) 20 br/min (02/26/22 4:38 AM) Temperature [96.8-100.4 DegF] 98.1 DegF (02/26/22 1:44 PM) 98.6 DegF (02/26/22 9:16 AM) 97.4 DegF (02/26/22 4:38 AM) Mode of Delivery (Oxygen) Room air (02/26/22 1:44 PM) Room air (02/26/22 9:16 AM) Room air (02/26/22 4:38 AM) Blood pressure sites Arm, left (02/26/22 1:44 PM) Arm, left (02/26/22 9:16 AM) Arm, right (02/26/22 4:38 AM) Temperature Route Oral (02/26/22 1:44 PM) Oral (02/26/22 9:16 AM) Oral (02/26/22 4:38 AM) Social History Social History Type Response Smoking Status 10 or more cigarette s (1/2 pack or more)/day in last 30 days; Type: Cigarettes; Other: Reports smoking 1/2-1 packs/day, ending on level of stress; Started at age: 25; entered on: 12/31/20 Sex
--- OUTSIDE RECORDS SUMMARY | 2023-07-16 14:49 | XMS_ITS | Continuity of Care Document ---
Author Name Unknown Organization [facility] Adult Address [address] [place] [address]- Care Team Providers Care Pipe Line Maintenance Supervisor Name Role Phone Maribel Marquez NP Primary Care Physician [place] [facility] [place] 02[place]/23 [facility] [address] [place] [address]- Attending Physician: Jessica Kitchen Admitting Physician: AdmJessica [...] 10:33:00 EST, Inhaler, Route to Pharmacy Electronically, NCPDP_[id number], [facility], 163, cm, 11/16/22 9:43:00 EST, Height, 97.3,... Start Date: 11/16/22 Status: Ordered atorvastatin 10 mg oral tablet 1 tablet = 10 mg, By Mouth, Daily at bedtime, # 30 tablet, 0 Refills, Maintenance, 11/16/22 10:33:00 EST, Tablet, [facility], Partial fill upon patient request if [...] 0 Refills, Maintenance, 11/16/22 10:33:00 EST, Tablet, [facility], Partial fill upon patient request if [...] 11/16/22 10:34:00 EST, Route to Pharmacy Electronically, [facility], Partial fill upon patient request if [...] 11/16/22 10:34:00 EST, Route to Pharmacy Electronically, [facility], Partial fill upon patientrequest if the [...] 02/12/23 10:51:00 EDT, Route to Pharmacy Electronically, [facility], Partial fill upon patient requestif the [...] 60 tablet, 1 Refills, Maintenance,02/22/23 10:08:00 EDT, [facility], 146, cm, 02/05/23 20:22:00 EDT, Height, [...] Start Date: 01/06/23 Status: Ordered nystatin topical [id number] u/gm cream 1 application, Topically, 2 times a day, # 15 Gm, 0 Refills, Maintenance, 01/05/23 15:04:00 EDT, Cream, [facility], Partial fill upon patient request if the prescription is for a schedule II opioid drug., 1 application Topically 2 times a da... Start Date: 01/05/23 Status: Ordered nystatin topical [id number] u/gm cream 0 Refills, Maintenance, 01/06/23 18:05:00 [...] 11/16/22 10:34:00 EST, Route to Pharmacy Electronically, [facility], Partial fill upon patient request if [...] Maintenance,11/16/22 10:34:00 EST, Route to Pharmacy Electronically, [facility], Partial fill upon patient request if [...] age: 25; entered on: 11/18/22 Sex Hospital Consult note * Event Display: Inpatient Consult Note, Non- Authored Date: * Event Display: Inpatient Consult Note, Non- Authored Date: * Event Display: Inpatient Consult Note, Non- Authored Date: MG Breast Views * Event Display: MM Mammogram Authored Date: Patient Care team information Care Team Personnel Name: Rudi Ruiz RN Position: [facility] ED RN W/OE and Tasks Member Role: Primary Care Nurse Name: Alicja Riggs RN Position: [facility] RN Member Role: Primary Care Nurse Name: Ros Fu RN Position: [facility] RN Member Role: Primary Care Nurse Name: Hilda Mccabe RN Position: [facility] RN Member Role: Primary Care Nurse Name: Rosana Kearney RN Position: [facility] SN RN Member Role: Primary Care Nurse Name: Wil Flood RN Position: [facility] RN Member Role: Primary Care Nurse Name: Gagandeep Sheldon RN Position: [facility] RN Member Role: Primary Care Nurse Name: Chip Morton Position: [facility] Outreach Member Role: Lifetime Consulting Physician Name: Alba Daily RN Position: [facility] RN Member Role: Primary Care Nurse Name: Maribel Marquez NP Position: [facility] PCO Associate Professional Member Role: PCP Address: Address: [address] [place] [id number]- Name: Jose Ramirez RN Position: [facility] RN Member Role: Primary Care Nurse Name: Brittany Butts RN Position: [facility] AMB Nurse Member Role: Primary Care Nurse Name: Pauline Mcadams RN Position: [facility] RN Member Role: Primary Care Nurse Name: Mary Sánchez RN Position: [facility] RN Member Role: Primary Care Nurse Name: Shama Rosado RN Position: [facility] RN Member Role: Primary Care Nurse Name: Jackie Snyder RN Position: [facility] RN Member Role: Primary Care Nurse Name: Jay Burks NP Position: Reference Physician Member Role: Primary Care Nurse Address: Address: [address] [place], [place] [id number] [facility] [place] [address]- Name: Parvez Kaba MD Position: [facility] Renal MD Member Role: Lifetime Consulting Physician Address: Address: [address] [place] [address] [facility] [place] [address]- Name: Mirna Paul RN Position: [facility] OB RN Member Role: Primary Care Nurse Name: Latonya Rahman RN Position: [facility] Onco RN Member Role: Primary Care Nurse Name: Viki Gonzalez RN Position: [facility] RN Member Role: Primary Care Nurse Name: Claudia Presley RN Position: [facility] RN Member Role: Primary Care Nurse Name: Iris Villa RN Position: [facility] Hospital Park Aide Member Role: Primary Care Nurse Care Team Related Persons Name: JO-ANN ROMANCUSTOMER LIAISONINDRA Address: [address] [place] [address] Name: TECHNICAL SPECIALIST CYTOGENETICSGREGG Address: [address] [place] [address] Name: CARLOS PAZ Address: home [address] [place] [address]
--- OUTSIDE RECORDS SUMMARY | 2023-07-16 14:49 | XMS_ITS | Continuity of Care Document ---
Author Name Unknown Organization [facility] ter Address [address] [place] [address]- Care Team Providers Care Laboratory Animal Caretaker Name Role Phone Maribel Marquez NP Primary Care Physician [phone] [facility] [place] Date(s): 01/21/22 - 01/22/[address] [address]- Encounter Diagnosis Suicidal ideation(Final) - 01/21/22 Auditory hallucination(Final) - 01/21/22 Discharge Disposition: A-D/C Home Attending Physician: Linnea Garrido MD Admitting Physician: Linnea Garrido MD Referring Physician: Not on Staff, Referring MD Allergies, Adverse Reactions, Alerts Substance Reaction Severity Status codeine Active Macrobid Active Seafood Active penicillin Active predniSONE Active sulfa drugs Active Zithromax Active Geodon Active Immunizations Given and Recorded [...] tablet, 0 Refills, Maintenance, 01/04/22 11:12:00 EDT, [facility], Partial fill upon patient request [...] 04/11/21 9:22:00 EDT, Route to Pharmacy Electronically, [facility], Partial fill upon patient request if the prescription is for a schedule II opioid . Start Date: 04/11/21 Stop Date: 01/06/22 Status: Ordered Flovent HFA 110 mcg/inh inhalation aerosol 2 puffs, Inhalation, 2 times a day, # 12 Gm, 2 Refills, [facility], 165, cm, 12/19/21 10:41:00 EST, [...] 04/04/22 12:34:00 EDT, 01/04/22 12:34:00 EDT, Tablet, [facility], Partial fill upon patient request if the prescription is f... Start Date: 01/04/22 Stop Date: 04/04/22 Status: Ordered metFORMIN 500 mg oral tablet 1 each = 500 mg, By Mouth, 2 times a day, # 180 each, 1 Refills, Maintenance, 05/09/21 8:43:00 EDT,Tablet, [facility], Partial fill upon [...] 01/04/22 11:12:00 EDT, Route to Pharmacy Electronically, [facility], 165, cm, 12/19/21 10:41:00 EST, Height, 103, kg, 11/26/21 8:59:00 EST, Start Date: 01/04/22 Status: Ordered naproxen 500 mg oral tablet 1 tablet = 500 mg, By Mouth, 2 times a day, PRN Pain , Moderate, for 14 days, with food, # 28 tablet, 0 Refills, Acute 02/02/22 14:24:00 EDT, 01/19/22 14:24:00 EDT, Tablet, [facility], Partial fill upon patient request if the prescription is... Start Date: 01/19/22 Stop Date: 02/02/22 Status: Ordered nicotine 21 mg/24 hr transdermal film, extended release 1 patch, Topically, Daily, for 30 days, # 30 patch, 0 Refills, Acute 02/18/22 14:31:00 EDT, 01/19/22 14:31:00 EDT, Patch, [facility], Partial fill upon [...] 01/19/22 10:48:00 EDT, Route to Pharmacy Electronically, [facility], Partial fill upon patient request [...] 0 Refills, Maintenance, 02/09/20 10:05:00 EDT, Inhaler, [facility], 165, cm, 02/08/20 19:47:00 EDT, Height, 104.5, kg, 02/07/20 8:15:00 EDT, Dry Weight Start Date: 02/09/20 Stop Date: 03/10/20 Status: Ordered verapamil 240 mg/12 hours oral tablet, extended release 1 tablet = 240 mg, By Mouth, Daily at bedtime, # 90 tablet, 1 Refills, Maintenance, 05/09/21 8:45:00 EDT, SR Tablet, [facility], 165, cm, 04/11/21 7:42:00 EDT, Height, 102.6, kg, 02/12/21 12:14:00 EDT, Dry Weight Start Date: 05/09/21 Status: Ordered Verapamil SR Tablet 240 mg, SR Tablet, By Mouth, 01/22/22 9:00:00 EDT Start Date: 01/22/22 Stop Date: 01/22/22 Status: Completed Problem List Condition Effective Dates [...] 3 Oxygen Saturation [94-100 %] 97 % (01/22/22 11:45 AM) 92 % *L* (01/22/22 6:43 AM) 95 % (01/21/22 9:03 PM) Pulse Rate [55-90 bpm] 68 bpm (01/22/22 11:45 AM) 65 bpm (01/22/22 9:25 AM) 66 bpm (01/22/22 6:43 AM) Blood Pressure [90-138/55-84 mm Hg] 120/74mm Hg (01/22/22 11:45 AM) 127/87mm Hg (01/22/22 9:25 AM) 127/87mm Hg (01/22/22 6:43 AM) Respiratory Rate [16-30 br/min] 16 br/min (01/22/22 11:45 AM) 16 br/min (01/22/22 6:43 AM) 18 br/min (01/21/22 9:03 PM) Temperature [96.8-100.4 DegF] 98.5 DegF (01/22/22 11:45 AM) 98.5 DegF (01/22/22 6:43 AM) 98.2 DegF (01/21/22 9:03 PM) Mode of Delivery (Oxygen) Room air (01/22/22 11:45 AM) Room air (01/22/22 6:43 AM) Room air (01/21/22 9:03 PM) Blood pressure sites Arm, right (01/22/22 11:45 AM) Arm, right (01/22/22 6:43 AM) Arm, right (01/21/22 9:03 PM) Temperature Route Oral (01/22/22 11:45 AM) Oral (01/22/22 6:43 AM) Oral (01/21/22 9:03 PM) Social History Social History Type Response Smoking Status 10 or more cigarette s (1/2 pack or more)/day in last 30 days; Type: Cigarettes; Other: Reports smoking 1/2-1 packs/day, ending on level of stress; Started at age: 25; entered on: 12/31/20 Sex
--- OUTSIDE RECORDS SUMMARY | 2023-07-16 14:49 | XMS_ITS | Continuity of Care Document ---
Author Name Unknown Organization [facility] Adult Address [address] [place] [address]- Care Team Providers Care Physicians Assistant Name Role Phone Maribel Marquez NP Primary Care Physician [phone] Encounter [facility] [place] Date(s): 07/21/22 - 08/20/22 [facility] [address], [place] [address] Allergies, Adverse Reactions, Alerts Substance Reaction Severity Status codeine Active lithium 1 Active penicillin Active predniSONE Active Seafood Active Geodon Active sulfa drugs Active Macrobid Active Zithromax [...] tablet, 1 Refills, Maintenance, 07/24/22 15:17:00 EDT, [facility], 165.2, cm, 07/19/22 10:30:00 EDT, Height, [...] 04/11/21 9:22:00 EDT, Route to Pharmacy Electronically, [facility], Partial fill upon patient request if the prescription is for a schedule II opioid dr... Start Date: 04/11/21 Stop Date: 01/06/22 Status: Ordered Flovent HFA 110 mcg/inh inhalation aerosol 2 puffs, Inhalation, 2 times a day, # 12 Gm, 1 Refills, [facility], 162, cm, 03/20/22 19:50:00 EDT, Height, [...] 07/21/22 14:07:00 EDT, Route to Pharmacy Electronically, [facility], Partial fill upon patient requestif the prescription is for a schedule II opioid kaela... Start Date: 07/21/22 Stop Date: 04/17/23 Status: Ordered metFORMIN 500 mg oral tablet See Instructions, TAKE 1 EACH BY MOUTH 2 TIMES A DAY, # 60 tablet, 5 Refills, 10/24/22 10:55:00 EDT, [facility], 165.2, cm, 07/19/22 10:30:00 EDT, Height, [...] 01/04/22 11:12:00 EDT, Route to Pharmacy Electronically, [facility], 165, cm, 12/19/21 10:41:00 EST, Height, 103, kg, 11/26/21 8:59:00 EST, . Start Date: 01/04/22 Status: Ordered Nicoderm C-Q Clear 21 mg/24 hr transdermal film, extended release 1 patch, Topically, Daily, for 6 week(s), # 42 patch, 0 Refills, Acute 08/30/22 11:56:00 EST, 07/19/22 11:56:00 EDT, Patch, [facility], Partial fill upon patient request if [...] 01/19/22 10:48:00 EDT, Route to Pharmacy Electronically, [facility], Partial fill upon patient request if the prescription is for a schedule... Start Date: 01/19/22 Status: Ordered ProAir HFA 90 mcg/inh inhalation aerosol 2 puffs, Inhalation, 4 times a day, PRN as needed for wheezing, # 6.7 Gm, 1 Refills, Maintenance, 06/23/22 16:17:00 EDT, Aerosol, [facility], Partial fill upon patient request if [...] 07/28/22 7:45:00 EDT, Route to Pharmacy Electronically, [facility], 165.2, cm, 07/19/22 10:30:00 EDT, Height, [...] Refills, Maintenance, 05/09/21 8:45:00 EDT, SR Tablet, [facility], 165, cm, 04/11/21 7:42:00 EDT, Height, [...] Personnel Name: Maribel Marquez NP Address: Address: [address] [place] [id number]
--- OUTSIDE RECORDS SUMMARY | 2023-07-16 14:49 | XMS_ITS | Continuity of Care Document ---
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 Name Role Phone Maribel Marquez NP Primary Care Physician Encounter [facility] [place] Date(s): 09/18/21 - 09/19/[address] [address]- Encounter Diagnosis Suicidal ideation(Final) - 09/18/21 Forearm laceration(Final) - 09/18/21 Leg laceration(Final) - 09/18/21 Auditory hallucination(Final) - 09/18/21 Discharge Disposition: A-D/C Home Attending Physician: Val Dietz DO Admitting Physician: Val Dietz DO Referring Physician: Not on Staff, Referring [...] 0 Refills, Maintenance, 06/28/21 10:16:00 EDT, Tablet, [facility], Partial fill upon patient request if [...] 0 Refills, Maintenance, 02/09/20 10:08:00 EDT, Tablet, [facility], 165, cm, 02/08/20 19:47:00 EDT, Height, 104.5, kg,02/07/20 8:15:00 EDT, Dry Weight Start Date: 02/09/20 Status: Ordered doxazosin 1 mg oral tablet 3 mg, 3, tablet, By Mouth, Daily at bedtime, # 90 tablet, Refills 0, Tot. Refills 0, Maintenance, 07/22/20 18:41:00 EDT, Route to Pharmacy Electronically, [facility], 163.5, cm, 07/22/20 18:29:00 EDT, Height, 102.5, kg, 07/18/20 21:04:00 EDT... Start Date: 07/22/20 Status: Ordered doxazosin 1 mg oral tablet 3 mg, Tablet, By Mouth, 09/18/21 23:35:00 EST Start Date: 09/18/21 Stop Date: 09/19/21 Status: Completed ferrous sulfate 325 mg oral enteric coated tablet 325 mg, 1, tablet, By Mouth, Daily, # 90 tablet, Refills 2, Tot. Refills 2, Maintenance, 04/11/21 9:22:00 EDT, Route to Pharmacy Electronically, [facility], Partial fill upon patient request if the prescription is for a schedule II opioid . Start Date: 04/11/21 Stop Date: 01/06/22 Status: Ordered Flovent HFA 110 mcg/inh inhalation aerosol 2 puffs = 220 mcg, Inhalation, 2 times a day, # 3 each, 3 Refills, Maintenance, 05/09/21 8:41:00 EDT, Aerosol, [facility], 165, cm, 04/11/21 7:42:00 EDT, Height, 102.6, kg, 02/12/21 12:14:00 EDT, Dry Weight Start Date: 05/09/21 Status: Ordered Haldol Decanoate decanoate 100 mg/ml injectable solution = 100 mg, Intramuscular, Every 28 days, last dose given on 09/17/2020. Next due 10/15/20., # 1 each, 0Refills, Soft Stop, 07/22/20 18:42:00 EDT, Solution, [facility], 163.5, cm, 07/22/20 18:29:00 EDT, Height, 102.5, kg, 07/18/20 21:04:00 EDT,... Start Date: 07/22/20 Status: Ordered ibuprofen 600 mg oral tablet 600 mg, 1, tablet, By Mouth, Every 6 hours, PRN, # 120 tablet, Refills 0, Tot. Refills 0, Maintenance, Headache, 08/08/21 7:41:00 EDT, Route to Pharmacy Electronically, [facility], Partial fill upon patient request if the prescription is for... Start Date: 08/08/21 Stop Date: 09/07/21 Status: Ordered lisinopril 5 mg oral tablet 5 mg, Tablet, By Mouth, 09/19/21 9:00:00 EST Start Date: 09/19/21 Stop Date: 09/19/21 Status: Completed lisinopril 5 mg oral tablet 5 mg, 1, tablet, By Mouth, Daily, # 90 tablet, Refills 1, Tot. Refills 1, Maintenance, 05/09/21 8:43:00 EDT, Route to Pharmacy Electronically, [facility], 165, cm, 04/11/21 7:42:00 EDT, Height, 102.6, kg, 02/12/21 12:14:00 EDT, Dry Weight Start Date: 05/09/21 Status: Ordered loratadine 10 mg oral tablet 10 mg, 1, tablet, By Mouth, Daily, # 90 tablet, Refills 3, Tot. Refills 3, Maintenance, 04/11/21 9:38:00 EDT, Route to Pharmacy Electronically, [facility], Partial fill upon patient requestif the [...] each, 1 Refills, Maintenance, 05/09/21 8:43:00 EDT,Tablet, [facility], Partial fill upon patient request if the prescription is for a schedule II opioid drug., 165, cm, 04/11/21 7:42:00 EDT, H... Start Date: 05/09/21 Stop Date: 11/05/21 Status: Ordered montelukast 10 mg oral tablet 10 mg, 1, tablet, By Mouth, Daily, # 90 tablet, Refills 1, Tot. Refills 1, Maintenance, 05/09/21 8:45:00 EDT, Route to Pharmacy Electronically, [facility], 165, cm, 04/11/21 7:42:00 EDT, Height, [...] Gm, 5 Refills, Acute, 05/10/21 11:59:00 EDT, [facility], 15, TAKE 17 GM BY MOUTH [...] 0 Refills, Maintenance, 02/09/20 10:05:00 EDT, Inhaler, [facility], 165, cm, 02/08/20 19:47:00 EDT, Height, 104.5, kg, 02/07/20 8:15:00 EDT, Dry Weight Start Date: 02/09/20 Stop Date: 03/10/20 Status: Ordered verapamil 240 mg/12 hours oral tablet, extended release 1 tablet = 240 mg, By Mouth, Daily at bedtime, # 90 tablet, 1 Refills, Maintenance, 05/09/21 8:45:00 EDT, SR Tablet, [facility], 165, cm, 04/11/21 7:42:00 EDT, Height, [...] 3 Oxygen Saturation [94-100 %] 97 % (09/19/21 6:38 AM) 99 % (09/19/21 12:14 AM) 99 % (09/18/21 8:58 PM) Pulse Rate [55-90 bpm] 80 bpm (09/19/21 6:38 AM) 83 bpm (09/19/21 12:14 AM) 88 bpm (09/18/21 8:58 PM) Blood Pressure [90-138/55-84 mm Hg] 122/74mm Hg (09/19/21 10:16 AM) 122/74mm Hg (09/19/21 6:38 AM) 111/71mm Hg (09/19/21 12:14 AM) Respiratory Rate [16-30 br/min] 16 br/min (09/19/21 6:38 AM) 18 br/min (09/19/21 12:14 AM) 18 br/min (09/18/21 8:58 PM) Temperature [96.8-100.4 DegF] 98.4 DegF (09/19/21 6:38 AM) 97.9 DegF (09/18/21 8:58 PM) Mode of Delivery (Oxygen) Room air (09/19/21 6:38 AM) Room air (09/19/21 12:14 AM) Room air (09/18/21 8:58 PM) Blood pressure sites Arm, right (09/19/21 6:38 AM) Temperature Route Oral (09/19/21 6:38 AM) Oral (09/18/21 8:58 PM) Social History Social History Type Response Smoking Status 10 or more cigarette s (1/2 pack or more)/day in last 30 days; Type: Cigarettes; Other: Reports smoking 1/2-1 packs/day, ending on level of stress; Started at age: 25; entered on: 12/31/20 Sex
--- OUTSIDE RECORDS SUMMARY | 2023-07-16 14:49 | XMS_ITS | Continuity of Care Document ---
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.] tablet, 0 Refills, Maintenance, 12/14/21 9:46:00 EST, [facility], Partial fill upon patient request [...] 07/22/20 18:41:00 EDT, Route to Pharmacy Electronically, [facility], 163.5, cm, 07/22/20 18:29:00 EDT, Height, 102.5, kg, 07/18/20 21:04:00 EDT... Start Date: 07/22/20 Status: Ordered ferrous sulfate 325 mg oral enteric coated tablet 325 mg, 1, tablet, By Mouth, Daily, # 90 tablet, Refills 2, Tot. Refills 2, Maintenance, 04/11/21 9:22:00 EDT, Route to Pharmacy Electronically, [facility], Partial fill upon patient request if the prescription is for a schedule II opioid . Start Date: 04/11/21 Stop Date: 01/06/22 Status: Ordered Flovent HFA 110 mcg/inh inhalation aerosol 2 puffs = 220 mcg, Inhalation, 2 times a day, # 3 each, 3 Refills, Maintenance, 05/09/21 8:41:00 EDT, Aerosol, [facility], 165, cm, 04/11/21 7:42:00 EDT, Height, [...] 05/09/21 8:43:00 EDT, Route to Pharmacy Electronically, [facility], 165, cm, 04/11/21 7:42:00 EDT, Height, [...] 04/11/21 9:38:00 EDT, Route to Pharmacy Electronically, [facility], Partial fill upon patient requestif the [...] each, 1 Refills, Maintenance, 05/09/21 8:43:00 EDT,Tablet, [facility], Partial fill upon patient request [...] 05/09/21 8:45:00 EDT, Route to Pharmacy Electronically, [facility], 165, cm, 04/11/21 7:42:00 EDT, Height, [...] Start Date: 11/08/21 Status: Ordered nystatin topical 346830 u/gm cream 1 application, Topically, 2 times [...] Gm, 5 Refills, Acute, 05/10/21 11:59:00 EDT, [facility], 15, TAKE 17 GM BY MOUTH [...] 0 Refills, Maintenance, 02/09/20 10:05:00 EDT, Inhaler, [facility], 165, cm, 02/08/20 19:47:00 EDT, Height, 104.5, kg, 02/07/20 8:15:00 EDT, Dry Weight Start Date: 02/09/20 Stop Date: 03/10/20 Status: Ordered verapamil 240 mg/12 hours oral tablet, extended release 1 tablet = 240 mg, By Mouth, Daily at bedtime, # 90 tablet, 1 Refills, Maintenance, 05/09/21 8:45:00 EDT, SR Tablet, [facility], 165, cm, 04/11/21 7:42:00 EDT, Height, [...] Diagnosis Diagnosis Type Effective Dates Health Status Cl inical Service Informant Mood swings Discharge Diagnosis 12/19/21 Menstrual changes Discharge Diagnosis 12/19/21 Vital Signs Most recent to oldest [Reference Range]: 1 Height 165 cm (12/19/21 10:41 AM) Blood Pressure [90-138/55-84 mm Hg] 148/ 100mm Hg *H* (12/19/21 10:41 AM) Temperature [96.8-100.4 DegF] 97.4 DegF (12/19/21 10:41 AM) Blood pressure sites Arm, left (12/19/21 10:41 AM) Temperature Route Oral (12/19/21 10:41 AM) Social History Social History Type Response Smoking Status 10 or more cigarette s (1/2 pack or more)/day in last 30 days; Type: Cigarettes; Other: Reports smoking 1/2-1 packs/day, ending on level of stress; Started at age: 25; entered on: 12/31/20 Sex
--- OUTSIDE RECORDS SUMMARY | 2023-07-16 14:49 | XMS_ITS | Continuity of Care Document ---
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 Name Role Phone Maribel Marquez NP Primary Care Physician [phone] Encounter [facility] Date(s): 09/19/22 - 10/19/22 [facility] [address] [place] [address]- Allergies, Adverse Reactions, Alerts Substance Reaction Severity [...] Russel rded influenza virus vaccine, inactivated 07/17/07 Rusesl rded influenza virus vaccine, inactivated 07/23/06 Russel [...] tablet, 1 Refills, Maintenance, 07/24/22 15:17:00 EDT, [facility], 165.2, cm, 07/19/22 10:30:00 EDT, Height, [...] 04/11/21 9:22:00 EDT, Route to Pharmacy Electronically, [facility], Partial fill upon patient request if the prescription is for a schedule II opioid dr... Start Date: 04/11/21 Stop Date: 01/06/22 Status: Ordered Flovent HFA 110 mcg/inh inhalation aerosol 2 puffs, Inhalation, 2 times a day, # 12 Gm, 1 Refills, [facility], 162, cm, 03/20/22 19:50:00 EDT, Height, [...] 07/21/22 14:07:00 EDT, Route to Pharmacy Electronically, [facility], Partial fill upon patient requestif the prescription is for a schedule II opioid kaela... Start Date: 07/21/22 Stop Date: 04/17/23 Status: Ordered metFORMIN 500 mg oral tablet See Instructions, TAKE 1 EACH BY MOUTH 2 TIMES A DAY, # 60 tablet, 5 Refills, 10/24/22 10:55:00 EDT, [facility], 165.2, cm, 07/19/22 10:30:00 EDT, Height, [...] 10/04/22 15:29:00 EST, Route to Pharmacy Electronically, [facility], 157, cm, 10/01/22 6:31:00 EST, [...] 01/19/22 10:48:00 EDT, Route to Pharmacy Electronically, [facility], Partial fill upon patient request if the prescription is for a schedule... Start Date: 01/19/22 Status: Ordered ProAir HFA 90 mcg/inh inhalation aerosol 2 puffs, Inhalation, 4 times a day, PRN as needed for wheezing, # 6.7 Gm, 1 Refills, Maintenance, 06/23/22 16:17:00 EDT, Aerosol, [facility], Partial fill upon patient [...] 07/28/22 7:45:00 EDT, Route to Pharmacy Electronically, [facility], 165.2, cm, 07/19/22 10:30:00 EDT, Height, [...] Refills, Maintenance, 05/09/21 8:45:00 EDT, SR Tablet, [facility], 165, cm, 04/11/21 7:42:00 EDT, Height, [...] Team Personnel Name: Rudi Ruiz RN Position: [facility] ED RN W/OE and Tasks Member Role: Primary Care Nurse Name: Alicja Riggs RN Position: [facility] RN Member Role: Primary Care Nurse Name: Ros Fu RN Position: [facility] RN Member Role: Primary Care Nurse Name: Hilda Mccabe RN Position: [facility] RN Member Role: Primary Care Nurse Name: Rosana Kearney RN Position: [facility] AMB Nurse Member Role: Primary Care Nurse Name: Wil Flood RN Position: [facility] RN Member Role: Primary Care Nurse Name: Gagandeep Sheldon RN Position: [facility] RN Member Role: Primary Care Nurse Name: Chip Morton Position: [facility] Outreach Member Role: Lifetime Consulting Physician Name: Alba Daily RN Position: [facility] RN Member Role: Primary Care Nurse Name: Maribel Marquez NP Position: [facility] PCO Associate Professional Member Role: PCP Address: Address: [address] [place] [address]- Name: Jose Ramirez RN Position: [facility] RN Member Role: Primary Care Nurse Name: Brittany Butts RN Position: [facility] AMB Nurse Member Role: Primary Care Nurse Name: Mary Sánchez RN Position: [facility] RN Member Role: Primary Care Nurse Name: Shama Rosado RN Position: [facility] RN Member Role: Primary Care Nurse Name: Jackie Snyder RN Position: [facility] RN Member Role: Primary Care Nurse Name: Jay Burks NP Position: Reference Physician Member Role: Primary Care Nurse Address: Address: [address] [place], [place] [id number] [facility] [place] [address]- Name: Parvez Kaba MD Position: [facility] Renal MD Member Role: Lifetime Consulting Physician Address: Address: [address] [place] [address] [facility] [place] [address]- Name: Yoana Ledezma RN Position: [facility] RN Member Role: Primary Care Nurse Name: Mirna Paul RN Position: [facility] OB RN Member Role: Primary Care Nurse Name: Latonya Rahman RN Position: [facility] Onco RN Member Role: Primary Care Nurse Name: Claudia Presley RN Position: [facility] RN Member Role: Primary Care Nurse Name: Iris Villa RN Position: [facility] Hospital Millinery Copyist Member Role: Primary Care Nurse Care Team Related Persons Name: JO-ANN ROMANGRINDER CARBON PLANTINDRA Address: [address] [place] [address] Name: MERCHANDISE ADJUSTMENT CLERKGREGG Address: [address] [place] [address] Name: CARLOS PAZ Address: home [address] [place] [address]
--- OUTSIDE RECORDS SUMMARY | 2023-07-16 14:49 | XMS_ITS | Continuity of Care Document ---
Author Name Unknown Organization [facility] ter Address [address] [place] [address]- Care Team Providers Care Special Education Instructor Name Role Phone Michelle Norris MD Primary Care Physician [phone] Encounter [facility] Date(s): 05/08/20 - 05/08/[address] [address]- [facility] Encounter Diagnosis Depression(Final) - 05/08/20 Discharge Disposition: A-D/C Home Attending Physician: Lenore Pantoja MD Admitting Physician: Lenore Pantoja MD Referring Physician: Not on Staff, Referring MD Allergies, Adverse Reactions, Alerts Substance Reaction Severity Status codeine Active penicillin Active predniSONE Active sulfa drugs Active Seafood Active Geodon Active lithium 1 Active 1pt reports 01/17/13 started taking lithium [...] bedtime, # 30 tablet, 0 Refills, Maintenance, 04/27/20 10:07:00 EDT, Tablet, [facility], 165, cm, 02/08/20 19:47:00 EDT, Height, 104.5, kg, 02/07/20 8:15:00 EDT, Dry Weight Start Date: 02/09/20 Status: Ordered chlorproMAZINE 25 mg oral tablet = 25 mg, By Mouth, 3 times a day, PRN Agitation Anxiety, # 90 tablet, 0 Refills, Maintenance, 02/09/20 10:08:00 EDT, Tablet, [facility], 165, cm, 02/08/20 19:47:00 EDT, Height, 104.5, kg,02/07/20 8:15:00 EDT, Dry Weight Start Date: 02/09/20 Status: Ordered Claritin 10 mg oral tablet 10 mg, 1, tablet, By Mouth, Daily, # 30 tablet, Refills 0, Tot. Refills 0, Maintenance, 02/09/20 10:10:00 EDT, Route to Pharmacy Electronically, [facility], 165, cm, 02/08/20 19:47:00 EDT, Height, 104.5, kg, 02/07/20 8:15:00 EDT, Dry Weight Start Date: 02/09/20 Status: Ordered Colace sodium 100 mg oral capsule 100 mg, 1, capsule, By Mouth, 2 times a day, PRN, # 60 capsule, Refills 0, Tot. Refills 0, Maintenance, Constipation, 02/09/20 10:08:00 EDT, Route to Pharmacy Electronically, [facility], 165, cm, 02/08/20 19:47:00 EDT, Height, 104.5, kg, 04/... Start Date: 02/09/20 Status: Ordered Flonase 50 mcg/inh nasal spray 1 sprays = 50 mcg, Nares, Both, 2 times a day, # 16 Gm, 0 Refills, Maintenance, 02/09/20 10:09:00 EDT, Nasal [place], [facility], 1 sprays Nares, Both 2 times a day,x30 days, 165, cm, 02/08/20 19:47:00 EDT, Height, 104.5, kg, 02/07/20 8:15:00... Start Date: 02/09/20 Stop Date: 03/10/20 Status: Ordered Flovent HFA 110 mcg/inh inhalation aerosol 2 puffs = 220 mcg, Inhalation, 2 times a day, # 1 each, 0 Refills, Maintenance, 02/09/20 10:06:00 EDT, Aerosol, [facility], 165, cm, 02/08/20 19:47:00 EDT, Height, 104.5, kg, 02/07/20 8:15:00 EDT, Dry Weight Start Date: 02/09/20 Status: Ordered lisinopril 5 mg oral tablet 5 mg, 1, tablet, By Mouth, Daily, # 30 tablet, Refills 0, Tot. Refills 0, Maintenance, 02/09/20 10:10:00 EDT, Route to Pharmacy Electronically, [facility], 165, cm, 02/08/20 19:47:00 EDT, Height, 104.5, kg, 02/07/20 8:15:00 EDT, Dry Weight Start Date: 02/09/20 Status: Ordered montelukast 10 mg oral tablet 10 mg, 1, tablet, By Mouth, Daily, # 30 tablet, Refills 0, Tot. Refills 0, Maintenance, 02/09/20 10:11:00 EDT, Route to Pharmacy Electronically, [facility], 165, cm, 02/08/20 19:47:00 EDT, Height, 104.5, kg, 02/07/20 8:15:00 EDT, Dry Weight Start Date: 02/09/20 Status: Ordered norethindrone 0.35 mg oral tablet 1 tablet = 0.35 mg, By Mouth, Daily, # 30 tablet, 0 Refills, Maintenance, 02/09/20 10:07:00 EDT, Tablet, [facility], 165, cm, 02/08/20 19:47:00 EDT, Height, [...] 9:00:00 EDT, 02/09/20 10:22:00 EDT, REC Powder, [facility], 17 Gm By Mouth Daily,Instr:dissolve in water before taking, 165, cm, 02/08/20 19:47:00... Start Date: 02/09/20 Stop Date: 02/08/21 Status: Ordered prazosin 2 mg oral capsule 2 capsule = 4 mg, By Mouth, Daily at bedtime, # 60 capsule, 1 Refills, Maintenance, 02/09/20 10:12:00 EDT, [facility], 165, cm, 02/08/20 19:47:00 EDT, Height, 104.5, kg, 02/07/20 8:15:00 EDT, Dry Weight Start Date: 02/09/20 Stop Date: 03/08/20 Status: Ordered traZODone 150 mg oral tablet 1 tablet = 150 mg, By Mouth, Daily at bedtime, for sleep, # 30 tablet, 1 Refills, Maintenance, 02/09/20 10:13:00 EDT, Tablet, [facility], 165, cm, 02/08/20 19:47:00 EDT, Height, 104.5, kg, 02/07/20 8:15:00 EDT, Dry Weight Start Date: 02/09/20 Status: Ordered Trileptal 150 mg oral tablet 150 mg, 1, tablet, By Mouth, Daily at bedtime, # 30 tablet, Refills 0, Tot. Refills 0, Maintenance,02/09/20 10:12:00 EDT, Route to Pharmacy Electronically, [facility], 165, cm, 02/08/20 19:47:00 EDT, Height, 104.5, kg, 02/07/20 8:15:00 EDT,... Start Date: 02/09/20 Status: Ordered Trileptal 300 mg oral tablet 300 mg, 1, tablet, By Mouth, Daily at bedtime, # 30 tablet, Refills 0, Tot. Refills 0, Maintenance,02/09/20 10:18:00 EDT, Route to Pharmacy Electronically, [facility], 165, cm, 02/08/20 19:47:00 EDT, Height, 104.5, kg, 02/07/20 8:15:00 EDT,... Start Date: 02/09/20 Status: Ordered Ventolin HFA 108 mcg/inh inhalation aerosol with adapter 2 puffs = 180 mcg, Inhalation, 4 times a day, PRN for wheezing, # 1 each, 0 Refills, Maintenance, 02/09/20 10:05:00 EDT, Inhaler, [facility], 165, cm, 02/08/20 19:47:00 EDT, Height, 104.5, kg, 02/07/20 8:15:00 EDT, Dry Weight Start Date: 02/09/20 Stop Date: 03/10/20 Status: Ordered verapamil 240 mg/12 hours oral tablet, extended release 1 tablet = 240 mg, By Mouth, Daily at bedtime, # 30 tablet, 0 Refills, Maintenance, 02/09/20 10:14:00 EDT, SR Tablet, [facility], 165, cm, 02/08/20 19:47:00 EDT, Height, [...] 2 Oxygen Saturation [94-100 %] 100 % (05/08/20 2:46 PM) 98 % (05/08/20 10:09 AM) Pulse Rate [55-90 bpm] 75 bpm (05/08/20 2:46 PM) 80 bpm (05/08/20 10:09 AM) Blood Pressure [90-138/55-84 mm Hg] 138/ 98mm Hg (05/08/20 2:46 PM) 145/91mm Hg *H* (05/08/20 10:09 AM) Respiratory Rate [16-30 br/min] 16 br/mi n (05/08/20 2:46 PM) 18 br/min (05/08/20 10:09 AM) Temperature [96.8-100.4 DegF] 98.3 DegF (05/08/20 2:46 PM) 98.5 DegF (05/08/20 10:09 AM) Mode of Delivery (Oxygen) Room air (05/08/20 2:46 PM) Room air (05/08/20 10:09 AM) Blood pressure sites Arm, right (05/08/20 2:46 PM) Arm, right (05/08/20 10:09 AM) Temperature Route Oral (05/08/20 2:46 PM) Oral (05/08/20 10:09 AM) Social History Social History Type Response Smoking Status 10 or more cigarette s (1/2 pack or more)/day in last 30 days; Use: smokes 1 pack a day entered on: 05/10/19 Sex
--- OUTSIDE RECORDS SUMMARY | 2023-07-16 14:49 | XMS_ITS | Continuity of Care Document ---
Author Name Unknown Organization [facility] Address [address] [place] [address]- Care Team Providers Care Management Development Specialist Name Role Phone rJ LE, Michelle Miles Primary Care Physician Encounter [facility] Date(s): 07/18/20 - 07/23/20 [facility] [address] [place] [address]- [facility] Discharge Disposition: A-D/C Home Attending Physician: Marie Pearson MD Admitting Physician: Marie Pearson MD Referring Physician: Not on Staff, Referring [...] 0 Refills, Maintenance, 02/09/20 10:07:00 EDT, Tablet, [facility], 165, cm, 02/08/20 19:47:00 EDT, Height, [...] 0 Refills, Maintenance, 02/09/20 10:08:00 EDT, Tablet, [facility], 165, cm, 02/08/20 19:47:00 EDT, Height, 104.5, kg,02/07/20 8:15:00 EDT, Dry Weight Start Date: 02/09/20 Status: Ordered Claritin 10 mg oral tablet 10 mg, 1, tablet, By Mouth, Daily, # 30 tablet, Refills 0, Tot. Refills 0, Maintenance, 02/09/20 10:10:00 EDT, Route to Pharmacy Electronically, [facility], 165, cm, 02/08/20 19:47:00 EDT, Height, 104.5, kg, 02/07/20 8:15:00 EDT, Dry Weight Start Date: 02/09/20 Status: Ordered Colace sodium 100 mg oral capsule 100 mg, 1, capsule, By Mouth, 2 times a day, PRN, # 60 capsule, Refills 0, Tot. Refills 0, Maintenance, Constipation, 02/09/20 10:08:00 EDT, Route to Pharmacy Electronically, [facility], 165, cm, 02/08/20 19:47:00 EDT, Height, 104.5, kg, 04/... Start Date: 02/09/20 Status: Ordered doxazosin 1 mg oral tablet 3 mg, 3, tablet, By Mouth, Daily at bedtime, # 90 tablet, Refills 0, Tot. Refills 0, Maintenance, 07/22/20 18:41:00 EDT, Route to Pharmacy Electronically, [facility], 163.5, cm, 07/22/20 18:29:00 EDT, Height, 102.5, kg, 07/18/20 21:04:00 EDT... Start Date: 07/22/20 Status: Ordered Flonase 50 mcg/inh nasal spray 1 sprays = 50 mcg, Nares, Both, 2 times a day, # 16 Gm, 0 Refills, Maintenance, 02/09/20 10:09:00 EDT, Nasal [place], [facility], 1 sprays Nares, Both 2 times a day,x30 days, 165, cm, 02/08/20 19:47:00 EDT, Height, 104.5, kg, 02/07/20 8:15:00... Start Date: 02/09/20 Stop Date: 03/10/20 Status: Ordered Flovent HFA 110 mcg/inh inhalation aerosol 2 puffs = 220 mcg, Inhalation, 2 times a day, # 1 each, 0 Refills, Maintenance, 02/09/20 10:06:00 EDT, Aerosol, [facility], 165, cm, 02/08/20 19:47:00 EDT, Height, 104.5, kg, 02/07/20 8:15:00 EDT, Dry Weight Start Date: 02/09/20 Status: Ordered Haldol Decanoate decanoate 100 mg/ml injectable solution = 100 mg, Intramuscular, Every 28 days, last dose given on 07/21/2020, # 1 each, 0 Refills, Soft Stop, 07/22/20 18:42:00 EDT, Solution, [facility], 163.5, cm, 07/22/20 18:29:00 EDT, Height, 102.5, kg, 07/18/20 21:04:00 EDT, Dry Weight Start Date: 07/22/20 Status: Ordered haloperidol 5 mg oral tablet 5 mg, 1, tablet, By Mouth, 2 times a day, take 1 tablet BID for one week then stop., # 14 tablet, Refills 0, Tot. Refills 0, Maintenance, 07/22/20 18:39:00 EDT, Route to Pharmacy Electronically, [facility], 163.5, cm, 07/22/20 18:29:00 EDT,... Start [...] 02/09/20 10:10:00 EDT, Route to Pharmacy Electronically, [facility], 165, cm, 02/08/20 19:47:00 EDT, Height, [...] 02/09/20 10:11:00 EDT, Route to Pharmacy Electronically, [facility], 165, cm, 02/08/20 19:47:00 EDT, Height, 104.5, kg, 02/07/20 8:15:00 EDT, Dry Weight Start Date: 02/09/20 Status: Ordered norethindrone 0.35 mg oral tablet 1 tablet = 0.35 mg, By Mouth, Daily, # 30 tablet, 0 Refills, Maintenance, 02/09/20 10:07:00 EDT, Tablet, [facility], 165, cm, 02/08/20 19:47:00 EDT, Height, [...] Maintenance,02/09/20 10:18:00 EDT, Route to Pharmacy Electronically, [facility], 165, cm, 02/08/20 19:47:00 EDT, Height, 104.5, kg, 02/07/20 8:15:00 EDT,... Start Date: 02/09/20 Status: Ordered Ventolin HFA 108 mcg/inh inhalation aerosol with adapter 2 puffs = 180 mcg, Inhalation, 4 times a day, PRN for wheezing, # 1 each, 0 Refills, Maintenance, 02/09/20 10:05:00 EDT, Inhaler, [facility], 165, cm, 02/08/20 19:47:00 EDT, Height, 104.5, kg, 02/07/20 8:15:00 EDT, Dry Weight Start Date: 02/09/20 Stop Date: 03/10/20 Status: Ordered verapamil 240 mg/12 hours oral tablet, extended release 1 tablet = 240 mg, By Mouth, Daily at bedtime, # 30 tablet, 0 Refills, Maintenance, 02/09/20 10:14:00 EDT, SR Tablet, [facility], 165, cm, 02/08/20 19:47:00 EDT, Height, [...] oldest [Reference Range]: 1 2 3 Height 163.5 cm (07/23/20 9:10 AM) 163.5 cm (07/22/20 6:29 PM) 163.5 cm (07/22/20 1:04 PM) Weight 102.5 kg (07/18/20 9:04 PM) Oxygen Saturation [94-100 %] 97 % (07/23/20 9:10 AM) 99 % (07/22/20:29 PM) 97 % (07/22/20 1:04 PM) Pulse Rate [55-90 bpm] 99 bpm *H* (07/23/20 9:10 AM) 82 bpm (07/22/20 6:29 PM) 80 bpm (07/22/20 1:04 PM) Body Mass Index [18.5-24.99] 38.34 *>HHI* (07/18/20 9:04 PM) Blood Pressure [90-138/55-84 mm Hg] 120/84mm Hg (07/23/20 9:10 AM) 120/72mm Hg (07/22/20 8:43 PM) 120/72mm Hg (07/22/20 6:29 PM) Respiratory Rate [16-30 br/min] 18 br/min (07/23/20 9:10 AM) 18 br/min (07/23/20 9:10 AM) 18 br/min (07/22/20 9:00 PM) Temperature [96.8-100.4 DegF] 98.1 DegF (07/23/20 9:10 AM) 97.7 DegF (07/22/20 6:29 PM) 96.9 DegF (07/22/20 1:04 PM) Mode of Delivery (Oxygen) Room air (07/23/20 9:10 AM) Room air (07/22/20 1:04 PM) Room air (07/22/20 8:53 AM) Blood pressure sites Arm, left (07/23/20 9:10 AM) Arm, left (07/22/20 6:29 PM) Arm, right (07/22/20 8:53 AM) Temperature Route Oral (07/23/20 9:10 AM) Temporal (07/22/20 6:29 PM) Temporal (07/22/20 8:53 AM) Dry Weight 102.5 kg (07/18/20 9:04 PM) Sensory deficits None (07/18/20 9:04 PM) Mobility assistance Independent (07/18/20 9:04 PM) Social History Social History Type Response Smoking Status 10 or more cigarette s (1/2 pack or more)/day in last 30 days; Use: smokes 1 pack a day entered on: 05/10/19 Sex
--- OUTSIDE RECORDS SUMMARY | 2023-07-16 14:49 | XMS_ITS | Continuity of Care Document ---
Author Name Unknown Organization [facility] ter Address [address] [place] [id number]- Care Team Providers Care Relays Draftsperson Name Role Phone Maribel Marquez NP Primary Care Physician Encounter [facility] Date(s): 04/21/22 - 04/22/[address] [address]- Encounter Diagnosis Suicidal ideation(Final) - 04/21/22 Auditory hallucination(Final) - 04/21/22 Discharge Disposition: A-D/C Home Attending Physician: Juventino Dover DO Admitting Physician: Juventino Dover DO Referring Physician: Not on Staff, Referring MD Allergies, Adverse Reactions, Alerts Substance Reaction Severity Status codeine Active Seafood Active lithium 1 Active penicillin Active predniSONE Active sulfa drugs Active Macrobid Active Zithromax Active Geodon Active 1pt reports [...] hours, PRN for Pain , Moderate, STAT, 04/21/22 16:01:00 EDT Start Date: 04/21/22 Stop Date: 04/22/22 Status: Discontinued atorvastatin 10 mg oral tablet 1 tablet = 10 mg, By Mouth, Daily, # 90 tablet, 0 Refills, Maintenance, 01/04/22 11:12:00 EDT, [facility], Partial fill upon patient request if [...] a day, # 12 Gm, 1 Refills, [facility], 162, cm, 03/20/22 19:50:00 EDT, Height, [...] A DAY, # 60 tablet, 5 Refills, [facility],165, cm, 01/19/22 13:55:00 EDT, Height, 103, [...] 01/04/22 11:12:00 EDT, Route to Pharmacy Electronically, [facility], 165, cm, 12/19/21 10:41:00 EST, Height, 103, kg, 11/26/21 8:59:00 EST, [facility]. Start Date: 01/04/22 Status: Ordered Nicotine 2 mg gum 1 each = 2 mg, Chew, Every 2 hours, PRN as needed for smoking cessation, for 4 week(s), # 336 each,1 Refills, Acute 05/19/22 14:46:00 EDT, 03/24/22 14:46:00 EDT, Gum, [facility], Partial fill upon patient request if [...] 01/19/22 10:48:00 EDT, Route to Pharmacy Electronically, [facility], Partial fill upon patient request if [...] Refills, Maintenance, 05/09/21 8:45:00 EDT, SR Tablet, [facility], 165, cm, 04/11/21 7:42:00 EDT, Height, [...] 3 Oxygen Saturation [94-100 %] 97 % (04/22/22 4:58 AM) 98 % (04/21/22 10:41 PM) 97 % (04/21/22 2:47 PM) Pulse Rate [55-90 bpm] 88 bpm (04/22/22 4:58 AM) 83 bpm (04/21/22 10:41 PM) 94 bpm *H* (04/21/22 2:47 PM) Blood Pressure [90-138/55-84 mm Hg] 138/78mm Hg (04/22/22 4:58 AM) 115/73mm Hg (04/21/22 10:41 PM) 139/82mm Hg *H* (04/21/22 2:47 PM) Respiratory Rate [16-30 br/min] 18 br/min (04/22/22 4:58 AM) 18 br/min (04/21/22 10:41 PM) 15 br/min *L* (04/21/22 5:37 PM) Temperature [96.8-100.4 DegF] 97.7 DegF (04/21/22 10:41 PM) 98.1 DegF (04/21/22 2:47 PM) Mode of Delivery (Oxygen) Room air (04/22/22 4:58 AM) Room air (04/21/22 10:41 PM) Room air (04/21/22 2:47 PM) Blood pressure sites Arm, right (04/22/22 4:58 AM) Arm, right (04/21/22 10:41 PM) Arm, right (04/21/22 2:47 PM) Temperature Route Oral (04/21/22 10:41 PM) Oral (04/21/22 2:47 PM) Social History Social History Type Response Smoking Status 10 or more cigarette s (1/2 pack or more)/day in last 30 days; Type: Cigarettes; Other: Reports smoking 1/2-1 packs/day, ending on level of stress; Started at age: 25; entered on: 12/31/20 Sex
--- OUTSIDE RECORDS SUMMARY | 2023-07-16 14:49 | XMS_ITS | Continuity of Care Document ---
Author Name Unknown Organization [facility] ter Address [address] [place] [id number]- Care Team Providers Care Composition Tile Layer Name Role Phone Maribel Marquez NP Primary Care Physician Encounter [facility] [place] Date(s): 04/15/22 - 04/15/[address] [address]- Discharge Disposition: A-D/C Home Attending Physician: Nathan [...] Russel rded influenza virus vaccine, inactivated 09/09/15 Urssel rded influenza virus vaccine, inactivated 07/07/13 Give [...] tablet, 0 Refills, Maintenance, 01/04/22 11:12:00 EDT, [facility], Partial fill upon patient request if [...] a day, # 12 Gm, 2 Refills, [facility], 165, cm, 12/19/21 10:41:00 EST, Height, [...] A DAY, # 60 tablet, 5 Refills, [facility],165, cm, 01/19/22 13:55:00 EDT, Height, 103, kg, [...] 01/04/22 11:12:00 EDT, Route to Pharmacy Electronically, [facility], 165, cm, 12/19/21 10:41:00 EST, Height, 103, kg, 11/26/21 8:59:00 EST, Start Date: 01/04/22 Status: Ordered Nicotine 2 mg gum 1 each = 2 mg, Chew, Every 2 hours, PRN as needed for smoking cessation, for 4 week(s), # 336 each,1 Refills, Acute 05/19/22 14:46:00 EDT, 03/24/22 14:46:00 EDT, Gum, [facility], Partial fill upon patient request if [...] Refills, Maintenance, 05/09/21 8:45:00 EDT, SR Tablet, [facility], 165, cm, 04/11/21 7:42:00 EDT, Height, [...] 3 Oxygen Saturation [94-100 %] 100 % (04/15/22 5:21 PM) 97 % (04/15/22 3:29 PM) 98 % (04/15/22 11:37 AM) Pulse Rate [55-90 bpm] 72 bpm (04/15/22 5:21 PM) 84 bpm (04/15/22 3:29 PM) 75 bpm (04/15/22 11:37 AM) Blood Pressure [90-138/55-84 mm Hg] 125/73mm Hg (04/15/22 5:21 PM) 134/94mm Hg (04/15/22 3:29 PM) 134/67mm Hg (04/15/22 11:37 AM) Respiratory Rate [16-30 br/min] 18 br/min (04/15/22 5:21 PM) 18 br/min (04/15/22 3:29 PM) 18 br/min (04/15/22 11:37 AM) Temperature [96.8-100.4 DegF] 98 DegF (04/15/22 11:37 AM) Mode of Delivery (Oxygen) Room air (04/15/22 5:21 PM) Room air (04/15/22 3:29 PM) Room air (04/15/22 11:37 AM) Blood pressure sites Arm, left (04/15/22 5:21 PM) Arm, left (04/15/22 3:29 PM) Arm, right (04/15/22 11:37 AM) Temperature Route Oral (04/15/22 11:37 AM) Social History Social History Type Response Smoking Status 10 or more cigarette s (1/2 pack or more)/day in last 30 days; Type: Cigarettes; Other: Reports smoking 1/2-1 packs/day, ending on level of stress; Started at age: 25; entered on: 12/31/20 Sex
--- OUTSIDE RECORDS SUMMARY | 2023-07-16 14:49 | XMS_ITS | Continuity of Care Document ---
Author Name Unknown Organization [facility] Adult Address [address] [place] [address]- Care Team Providers Care Emergency Response Officer Name Role Phone Maribel Marquez NP Primary Care Physician [phone] Encounter [facility] [place] Date(s): 06/07/23 - 07/13/23 [facility] Adult [address] [place] [address]- Attending Physician: Néstor Burnette MD Allergies, Adverse [...] each, 5 Refills, Maintenance, 05/22/23 11:32:00 EDT, [facility], Partial fill upon patient request if the prescription is for a schedule II opioid drug., 2 puffs Inhal... Start Date: 05/22/23 Stop Date: 05/22/24 Status: Ordered albuterol CFC free 90 mcg/inh inhalation aerosol 90 mcg, 1, puffs, Inhalation, Every 4 hours, PRN, # 6.7 Gm, Refills 0, Tot. Refills 0, Maintenance,11/16/22 10:33:00 EST, Inhaler, Route to Pharmacy Electronically, [id number]_[id number], [facility], 163, cm, 11/16/22 9:43:00 EST, Height, 97.3,... Start Date: 11/16/22 Status: Ordered atorvastatin 10 mg oral tablet 1 tablet = 10 mg, By Mouth, Daily at bedtime, # 30 tablet, 0 Refills, Maintenance, 11/16/22 10:33:00 EST, Tablet, [facility], Partial fill upon patient request if [...] 11/16/22 10:33:00 EST, Route to Pharmacy Electronically, [facility], Partial fill upon patientrequest if the [...] 0 Refills, Maintenance, 11/16/22 10:33:00 EST, Tablet, [facility], Partial fill upon patient request if [...] 11/16/22 10:34:00 EST, Route to Pharmacy Electronically, [facility], Partial fill upon patient request if the prescription is for a schedule II opioid d... Start Date: 11/16/22 Stop Date: 08/13/23 Status: Ordered FLUoxetine 20 mg oral capsule 80 mg, 4, capsule, By Mouth, Daily in AM, # 120 capsule, Refills 0, Tot. Refills 0, Maintenance, 11/16/22 10:34:00 EST, Route to Pharmacy Electronically, [facility], Partial fill upon patient request if [...] 11/16/22 10:34:00 EST, Route to Pharmacy Electronically, [facility], Partial fill upon patientrequest if the [...] 02/12/23 10:51:00 EDT, Route to Pharmacy Electronically, [facility], Partial fill upon patient requestif the [...] 60 tablet, 1 Refills, Maintenance,02/22/23 10:08:00 EDT, [facility], 146, cm, 02/05/23 20:22:00 EDT, Height, [...] 0 Refills, Maintenance, 11/16/22 10:34:00 EST, Tablet, [facility], Partial fill upon patient request if [...] 0 Refills, Maintenance, 11/16/22 10:34:00 EST, Tablet, [facility], Partial fill upon patient request if [...] 11/16/22 10:34:00 EST, Route to Pharmacy Electronically, [facility], Partial fill upon patient request if [...] 11:34:00 EDT, 05/22/23 11:32:00 EDT, ER Tablet, [facility], Partial fill upon patient request if the prescription is for a radha... Start Date: 05/22/23 Stop Date: 05/29/24 Status: Ordered nystatin topical [id number] u/gm cream 1 application, Topically, 2 times a day, # 15 Gm, 0 Refills, Maintenance, 01/05/23 15:04:00 EDT, Cream, [facility], Partial fill upon patient request if the prescription is for a schedule II opioid drug., 1 application Topically 2 times a da... Start Date: 01/05/23 Status: Ordered nystatin topical [id number] u/gm cream 0 Refills, Maintenance, 01/06/23 18:05:00 [...] 11/16/22 10:34:00 EST, Route to Pharmacy Electronically, [facility], Partial fill upon patient request if [...] Maintenance,11/16/22 10:34:00 EST, Route to Pharmacy Electronically, [facility], Partial fill upon patient request if [...] Team Personnel Name: Rudi Ruiz RN Position: [facility] ED RN W/OE and Tasks Member Role: Primary Care Nurse Name: Alicja Riggs RN Position: [facility] RN Member [...] Associate Professional Member Role: PCP Address: Address: [address] [place] [address]- [place] Name: James RNJose Position: [facility] RN Member Role: [...] Member Role: Primary Care Nurse Name: Kimmie BOOSTER OPERATORJay Position: Reference Physician Member Role: Primary Care Nurse Address: Address: [address] [place] [address] [address] Clinical & [place] [address]- [place] Name: Parvez Kaba MD Position: [facility] Renal MD Member Role: Lifetime Consulting Physician Address: Address: [address] [place] [address] [facility] [place] [address]- [place] Name: Mirna Paul RN [facility] Villa RN Position: [facility] Hospital Engineering Mgr Member Role: Primary Care Nurse Care Team Related Persons Name: JO-ANN ROMANTIE PRESSERINDRA Address: home [address] [place] [address] Name: MANUFACTURE SPECIALISTGREGG Address: home [address] [place] [address] Name: CARLOS PAZ Address: home [address] [place] [address]
--- OUTSIDE RECORDS SUMMARY | 2023-07-16 14:49 | XMS_ITS | Continuity of Care Document ---
Author Name Unknown Organization [facility] Adult Address [address] [place] [address]- Care Team Providers Care Selling Underwriter Name Role Phone Maribel Marquez NP Primary Care Physician [phone] Encounter [facility] Date(s): 09/12/21 - 09/19/21 [facility] Adult [address] [place] [address]- Encounter Diagnosis Hypertension(Discharge Diagnosis) - 09/12/21 Type 2 diabetes mellitus(Discharge Diagnosis) - 09/12/21 Borderline personality disorder(Discharge Diagnosis) - 09/18/21 Attending Physician: Justin Mathews MD Allergies, Adverse [...] 0 Refills, Maintenance, 06/28/21 10:16:00 EDT, Tablet, [facility], Partial fill upon [...] 04/11/21 9:22:00 EDT, Route to Pharmacy Electronically, [facility] [...] 08/08/21 7:41:00 EDT, Route to Pharmacy Electronically, [facility] [...] 04/11/21 9:38:00 EDT, Route to Pharmacy Electronically, [facility], Partial fill upon patient requestif the [...] Effective Dates Health Status Clinical Service Informant Hypertension Discharge Diagnosis 09/12/21 Type 2 diabetes mellitus Discharge Diagnosis 09/12/21 Borderline personality disorder Discharge Diagnosis 09/18/21 Vital Signs Most recent to oldest [Reference Range]: 1 Height 165 cm (09/12/21 1:56 PM) Weight 101.5 kg (09/12/21 1:56 PM) Oxygen Saturation [94-100 %] 96 % (09/12/21 1:56 PM) Pulse Rate [55-90 bpm] 98 bpm *H* (09/12/21 1:56 PM) Body Mass Index [18.5-24.99] 37.28 *>HHI* (09/12/21 1:56 PM) Blood Pressure [90-138/55-84 mm Hg] 114/ 62mm Hg (09/12/21 1:56 PM) Respiratory Rate [16-30 br/min] 20 br/mi n (09/12/21 1:56 PM) Temperature [96.8-100.4 DegF] 97.9 DegF (09/12/21 1:56 PM) Blood pressure sites Arm, left (09/12/21 1:56 PM) Temperature Route Oral (09/12/21 1:56 PM) Social History Social History Type Response Smoking Status 10 or more cigarette s (1/2 pack or more)/day in last 30 days; Type: Cigarettes; Other: Reports smoking 1/2-1 packs/day, ending on level of stress; Started at age: 25; entered on: 12/31/20 Sex
--- OUTSIDE RECORDS SUMMARY | 2023-07-16 14:50 | XMS_ITS | Continuity of Care Document ---
Author Name Unknown Organization [facility] Adult Address [address] [place] [address]- Care Team Providers Care Instructor Adjunct Pharmacy Technician Name Role Phone Maribel Marquez NP Primary Care Physician [phone] Encounter [facility] [facility] Date(s): 04/19/22 - 05/19/22 [facility] Adult [address] [place] [address]- Allergies, Adverse Reactions, Alerts Substance Reaction Severity [...] tablet, 0 Refills, Maintenance, 01/04/22 11:12:00 EDT, [facility], Partial fill upon patient request if [...] 04/11/21 9:22:00 EDT, Route to Pharmacy Electronically, [facility], Partial fill upon patient request if the prescription is for a schedule II opioid drCheyanne. Start Date: 04/11/21 Stop Date: 01/06/22 Status: Ordered Flovent HFA 110 mcg/inh inhalation aerosol 2 puffs, Inhalation, 2 times a day, # 12 Gm, 1 Refills, [facility], 162, cm, 03/20/22 19:50:00 EDT, Height, [...] A DAY, # 60 tablet, 5 Refills, [facility],165, cm, 01/19/22 13:55:00 EDT, Height, 103, [...] 01/04/22 11:12:00 EDT, Route to Pharmacy Electronically, [facility], 165, cm, 12/19/21 10:41:00 EST, Height, [...] 01/19/22 10:48:00 EDT, Route to Pharmacy Electronically, [facility], Partial fill upon patient request if [...] Refills, Maintenance, 05/09/21 8:45:00 EDT, SR Tablet, [facility], 165, cm, 04/11/21 7:42:00 EDT, Height, [...]
--- OUTSIDE RECORDS SUMMARY | 2023-07-16 14:50 | XMS_ITS | Continuity of Care Document ---
Author Name Unknown Organization [facility] ter Address [address] [place] [address]- Care Team Providers Care Interior Design Instructor Name Role Phone Maribel Marquez NP Primary Care Physician [place] [facility] [place] Date(s): 01/06/23 - 01/06/[address] [address]- Encounter Diagnosis Depression(Final) - 01/06/23 Discharge Disposition: A-D/C Home Attending Physician: Jackie Pereira DO Admitting Physician: Jackie Pereira DO Referring Physician: Not on Staff, Referring [...] 10:33:00 EST, Inhaler, Route to Pharmacy Electronically, NCPDP_[id number], [facility], 163, cm, 11/16/22 9:43:00 EST, Height, 97.3,... Start Date: 11/16/22 Status: Ordered atorvastatin 10 mg oral tablet 1 tablet = 10 mg, By Mouth, Daily at bedtime, # 30 tablet, 0 Refills, Maintenance, 11/16/22 10:33:00 EST, Tablet, [facility], Partial fill upon patient request if [...] 0 Refills, Maintenance, 11/16/22 10:33:00 EST, Tablet, [facility], Partial fill [...] 11/16/22 10:34:00 EST, Route to Pharmacy Electronically, [facility], Partial fill upon patient request if the prescription is for a schedule II opioid d... Start Date: 11/16/22 Stop Date: 08/13/23 Status: Ordered FLUoxetine 20 mg oral capsule 80 mg, 4, capsule, By Mouth, Daily in AM, # 120 capsule, Refills 0, Tot. Refills 0, Maintenance, 11/16/22 10:34:00 EST, Route to Pharmacy Electronically, [facility], Partial fill upon patient request if [...] 11/16/22 10:34:00 EST, [facility] Pharmacy Electronically, [facility] [...] 11/16/22 10:34:00 EST, [facility] Pharmacy Electronically, [facility] [...] 0 Refills, Maintenance, 11/16/22 10:34:00 EST, Tablet, [facility], Partial fill upon patient request if [...] 0 Refills, Maintenance, 11/16/22 10:34:00 EST, Tablet, [facility], Partial fill upon patient request if [...] 11/16/22 10:34:00 EST, Route to Pharmacy Electronically, [facility], Partial fill upon patient request if the prescription is for a schedule I... Start Date: 11/16/22 Status: Ordered montelukast 10 mg oral tablet Refills 0, Maintenance, 01/06/23 18:05:00 EDT, Partial fill upon patient request if the prescription is for a schedule II opioid drug. Start Date: 01/06/23 Status: Ordered nystatin topical [id number] u/gm cream 1 application, Topically, 2 times a day, # 15 Gm, 0 Refills, Maintenance, 01/05/23 15:04:00 EDT, Cream, [facility], Partial fill upon patient request if the prescription is for a schedule II opioid drug., 1 application Topically 2 times a da... Start Date: 01/05/23 Status: Ordered nystatin topical [id number] u/gm cream 0 Refills, Maintenance, 01/06/23 18:05:00 [...] 11/16/22 10:34:00 EST, [facility] Pharmacy Electronically, [facility] [...] Maintenance,11/16/22 10:34:00 EST, Route to Pharmacy Electronically, [facility], Partial fill upon patient request if [...] 3 Oxygen Saturation [94-100 %] 95 % (01/06/23 7:30 PM) 98 % (01/06/23 2:59 PM) 97 % (01/06/23 2:10 PM) Pulse Rate [55-90 bpm] 92 bpm *H* (01/06/23 7:30 PM) 89 bpm (01/06/23 2:59 PM) 96 bpm *H* (01/06/23 2:10 PM) Blood Pressure [90-138/55-84 mm Hg] 179/99mm Hg *H* (01/06/23 7:30 PM) 146/86mm Hg *H* (01/06/23 2:59 PM) 141/79mm Hg *H* (01/06/23 2:10 PM) Respiratory Rate [16-30 br/min] 18 br/min (01/06/23 7:30 PM) 16 br/min (01/06/23 2:59 PM) Temperature [96.8-100.4 DegF] 97.8 DegF (01/06/23 7:30 PM) 98.1 DegF (01/06/23 2:59 PM) 98.3 DegF (01/06/23 2:10 PM) Mode of Delivery (Oxygen) Room air (01/06/23 7:30 PM) Room air (01/06/23 2:59 PM) Room air (01/06/23 2:10 PM) Blood pressure sites Arm, left (01/06/23 7:30 PM) Arm, left (01/06/23 2:59 PM) Temperature Route Oral (01/06/23 7:30 PM) Oral (01/06/23 2:59 PM) Oral (01/06/23 2:10 PM) Social History Social History Type Response Smoking Status 10 or more cigarette s (1/2 pack or more)/day in last 30 days; Type: Cigarettes; Other: Reports smoking 1/2-1 packs/day, ending on level of stress; Started at age: 25; entered on: 11/18/22 Sex Patient Care team information Care Team Personnel Name: Rudi Ruiz RN Position: [facility] ED RN W/OE and Tasks Member Role: Primary Care Nurse Name: Alicja Riggs RN Position: [facility] RN Member Role: Primary Care Nurse Name: Harmony Pagan Position: [facility] RN Member Role: Primary Care Nurse Name: Ros Fu RN Position: [facility] RN Member Role: Primary Care Nurse Name: Hilda Mccabe RN Position: [facility] RN Member Role: Primary Care Nurse Name: Rosana Kearney RN Position: [facility] SN RN Member Role: Primary Care Nurse Name: Wil Flood RN Position: [facility] RN Member Role: Primary Care Nurse Name: Gagandeep Sheldon RN Position: [facility] RN Member Role: Primary Care Nurse Name: Chip Morton Position: [facility] Outreach Member Role: Lifetime Consulting Physician Name: Alba Daily RN Position: [facility] RN Member Role: Primary Care Nurse Name: Maribel Marquez NP Position: [facility] PCO Associate Professional Member Role: PCP Address: Address: [address] [place] [address] Name: Jose Ramirez RN Position: [facility] RN Member Role: Primary Care Nurse Name: Brittany Butts RN Position: [facility] AMB Nurse Member Role: Primary Care Nurse Name: Pauline Mcadams RN Position: [facility] RN Member Role: Primary Care Nurse Name: Mary Sánchez RN Position: [facility] RN Member Role: Primary Care Nurse Name: Shama Rosado RN Position: [facility] RN Member Role: Primary Care Nurse Name: Jackie Snyder RN Position: [facility] RN Member Role: Primary Care Nurse Name: Jay Burks NP Position: Reference Physician Member Role: Primary Care Nurse Address: Address: [address] [place] [address] [address] Clinical & [place] [address]- Name: Parvez Kaba MD Position: [facility] Renal MD Member Role: Lifetime Consulting Physician Address: Address: [address] [place] [address] [facility] [place] [address]- Name: Yoana Ledezma RN Position: [facility] RN Member Role: Primary Care Nurse Name: Mirna Paul RN Position: [facility] OB RN Member Role: Primary Care Nurse Name: Latonya Rahman RN Position: [facility] Onco RN Member Role: Primary Care Nurse Name: Viki Gonzalez RN Position: [facility] RN Member Role: Primary Care Nurse Name: Claudia Presley RN Position: [facility] RN Member Role: Primary Care Nurse Name: Iris iVlla RN Position: [facility] Hospital Malt Loader Member Role: Primary Care Nurse Name: Sera Mcgregor RN Position: [facility] ED RN W/OE and Tasks Member Role: Patient Care Provider Name: Leah Jimenez Position: [facility] ED TA [facility] Member Role: Lathmaker Name: Jackie Pereira DO Position: [facility] ED Medicine MD Member Role: Admitting Physician Address: Address: [address] [place] [address]- Name: Melissa Rothman DO Position: [facility] Resident Member Role: ED Resident Address: Address: [address] [place] [address]- Care Team Related Persons Name: JO-ANN ROMANSOLDERER PRODUCTION LINEINDRA Address: [address] [place] [address] Name: BORING MACHINE OPERATOR HELPERGREGG Address: [address] [place] [address] Name: CARLOS PAZ Address: [address] [place] [address]
--- OUTSIDE RECORDS SUMMARY | 2023-07-16 14:50 | XMS_ITS | Continuity of Care Document ---
Author Name Unknown Organization [facility] ter Address [address] [place] [address]- Care Team Providers Care Recording Engineer Name Role Phone Maribel Marquez NP Primary Care Physician Encounter [facility] Date(s): 01/04/23 - 01/04/[address] [address]- Encounter Diagnosis PTSD (post-traumatic stress disorder)(Final) - 01/04/23 Abrasions of multiple sites(Final) - 01/04/23 Nonsuicidal self-harm(Final) - 01/04/23 Discharge Disposition: A-D/C Home Attending Physician: Jimmy [...] 10:33:00 EST, Inhaler, Route to Pharmacy Electronically, NCPDP_[id number], [facility], 163, cm, 11/16/22 9:43:00 EST, Height, [...] 0 Refills, Maintenance, 11/16/22 10:34:00 EST, Tablet, [facility], Partial fill upon patient request if the prescription is for a schedule II opioid drug., 163, cm, 11/16/22 9:43:00 EST,... Start Date: 11/16/22 Status: Ordered mirtazapine 15 mg oral tablet 0.5 tablet = 7.5 mg, By Mouth, Daily at bedtime, # 15 tablet, 0 Refills, Maintenance, 11/16/22 10:34:00 EST, Tablet, [facility], Partial fill [...] 11/16/22 10:34:00 EST, Route to Pharmacy Electronically, [facility], Partial fill upon patient request if the prescription is for a schedule... Start Date: 11/16/22 Status: Ordered traZODone 50 mg oral tablet 150 mg, 3, tablet, By Mouth, Daily at bedtime, # 90 tablet, Refills 0, Tot. Refills 0, Maintenance,11/16/22 10:34:00 EST, Route to Pharmacy Electronically, [facility], Partial fill upon patient request if [...] recent to oldest [Reference Range]: 1 Height 160 cm (01/04/23 4:43 PM) Oxygen Saturation [94-100 %] 95 % (01/04/23 4:43 PM) Pulse Rate [55-90 bpm] 116 bpm *H* (01/04/23 4:43 PM) Blood Pressure [90-138/55-84 mm Hg] 139/ 89mm Hg *H* (01/04/23 4:43 PM) Respiratory Rate [16-30 br/min] 18 br/mi n (01/04/23 4:43 PM) Temperature [96.8-100.4 DegF] 98.4 DegF (01/04/23 4:43 PM) Mode of Delivery (Oxygen) Room air (01/04/23 4:43 PM) Blood pressure sites Arm, left (01/04/23 4:43 PM) Temperature Route Oral (01/04/23 4:43 PM) Social History Social History Type Response Smoking Status 10 or more cigarette s (1/2 pack or more)/day in last 30 days; Type: Cigarettes; Other: Reports smoking 1/2-1 packs/day, ending on level of stress; Started at age: 25; entered on: 11/18/22 Sex Patient Care team information Care Team Personnel Name: Rudi Ruiz RN Position: [facility] ED RN W/OE and Tasks Member Role: Primary Care Nurse Name: Alicja Riggs RN Position: [facility] RN Member Role: Primary Care Nurse Name: Harmony Pagan Position: [facility] RN Member Role: Primary Care Nurse Name: Ros Fu RN Position: [facility] RN Member Role: Primary Care Nurse Name: Hilda Mccabe RN Position: [facility] RN Member Role: Primary Care Nurse Name: Rosana Kearney RN Position: [facility] SN RN Member Role: Primary Care Nurse Name: Wil Flood RN Position: [facility] RN Member Role: Primary Care Nurse Name: Gagandeep Sheldon RN Position: [facility] RN Member Role: Primary Care Nurse Name: Chip Morton Position: [facility] Outreach Member Role: Lifetime Consulting Physician Name: Alba Daily RN Position: [facility] RN Member Role: Primary Care Nurse Name: Maribel Marquez NP Position: [facility] PCO Associate Professional Member Role: PCP Address: Address: [address] [place] [address] Name: Jose Ramirez RN Position: [facility] RN Member Role: Primary Care Nurse Name: Brittany Butts RN Position: [facility] AMB Nurse Member Role: Primary Care Nurse Name: Pauline Mcadams RN Position: [facility] RN Member Role: Primary Care Nurse Name: Mary Sánchez RN Position: [facility] RN Member Role: Primary Care Nurse Name: Shama Rosado RN Position: [facility] RN Member Role: Primary Care Nurse Name: Jackie Snyder RN Position: [facility] RN Member Role: Primary Care Nurse Name: Jay Burks NP Position: Reference Physician Member Role: Primary Care Nurse Address: Address: [address] [facility] [address] Clinical & [place] [address]- [place] Name: Parvez Kaba MD Position: [facility] Renal MD Member Role: Lifetime Consulting Physician Address: Address: [address] [place] [address] [facility] [place] [address]- [place] Name: Yoana Ledezma RN Position: [facility] RN Member Role: Primary Care Nurse Name: Mirna Paul RN Position: [facility] OB RN Member Role: Primary Care Nurse Name: Latonya Rahman RN Position: [facility] Onco RN Member Role: Primary Care Nurse Name: Viki Gonzalez RN Position: [facility] RN Member Role: Primary Care Nurse Name: Claudia Presley RN Position: [facility] RN Member Role: Primary Care Nurse Name: Iris Villa RN Position: [facility] Hospital Pediatrician Active Practice Member Role: Primary Care Nurse [facility] Attending Position: [facility] ED Attendings Patient Name: Jimmy Alfonso MD Position: [facility] Resident Member Role: Admitting Physician Address: Address: [address] [place] [address] [place] [address]- [place] Name: Leydi Sheridan Position: [facility] ED TA [facility] Member Role: Office Services Manager Care Team Related Persons Name: JO-ANN ROMANCODING VALIDATORINDRA Address: [address] [place] [address] Name: CRANE FOLLOWERGREGG Address: [address] [place] [address] Name: CARLOS PAZ Address: [address] [place] [address]
--- OUTSIDE RECORDS SUMMARY | 2023-07-16 14:50 | XMS_ITS | Continuity of Care Document ---
Author Name Unknown Organization [facility] Adult Address [address] [place] [address]- Care Team Providers Care Straightening Roll Operator Name Role Phone Maribel Marquez NP Primary Care Physician Encounter [facility] [place] Date(s): 12/14/21 - 01/13/22 [facility] Adult [address] [place] [address]- Allergies, Adverse Reactions, Alerts Substance Reaction Severity [...] tablet, 0 Refills, Maintenance, 01/04/22 11:12:00 EDT, [facility], Partial fill upon patient request [...] 07/22/20 18:41:00 EDT, Route to Pharmacy Electronically, [facility], 163.5, cm, 07/22/20 18:29:00 EDT, Height, 102.5, kg, 07/18/20 21:04:00 EDT... Start Date: 07/22/20 Status: Ordered ferrous sulfate 325 mg oral enteric coated tablet 325 mg, 1, tablet, By Mouth, Daily, # 90 tablet, Refills 2, Tot. Refills 2, Maintenance, 04/11/21 9:22:00 EDT, Route to Pharmacy Electronically, [facility], Partial fill upon patient request if the prescription is for a schedule II opioid . Start Date: 04/11/21 Stop Date: 01/06/22 Status: Ordered Flovent HFA 110 mcg/inh inhalation aerosol 2 puffs, Inhalation, 2 times a day, # 12 Gm, 2 Refills, [facility], 165, cm, 12/19/21 10:41:00 EST, [...] 05/09/21 8:43:00 EDT, Route to Pharmacy Electronically, [facility], 165, cm, 04/11/21 7:42:00 EDT, [...] 04/11/21 9:38:00 EDT, Route to Pharmacy Electronically, [facility], Partial fill upon patient requestif the [...] 04/04/22 12:34:00 EDT, 01/04/22 12:34:00 EDT, Tablet, [facility], Partial fill upon patient request if the prescription is f... Start Date: 01/04/22 Stop Date: 04/04/22 Status: Ordered metFORMIN 500 mg oral tablet 1 each = 500 mg, By Mouth, 2 times a day, # 180 each, 1 Refills, Maintenance, 05/09/21 8:43:00 EDT,Tablet, [facility], Partial fill upon patient request [...] 01/04/22 11:12:00 EDT, Route to Pharmacy Electronically, [facility], 165, cm, 12/19/21 10:41:00 EST, [...] Start Date: 11/08/21 Status: Ordered nystatin topical 793543 u/gm cream 1 application, Topically, 2 times [...] Gm, 5 Refills, Acute, 05/10/21 11:59:00 EDT, [facility], 15, TAKE 17 GM BY MOUTH [...] 0 Refills, Maintenance, 02/09/20 10:05:00 EDT, Inhaler, [facility], 165, cm, 02/08/20 19:47:00 EDT, Height, 104.5, kg, 02/07/20 8:15:00 EDT, Dry Weight Start Date: 02/09/20 Stop Date: 03/10/20 Status: Ordered verapamil 240 mg/12 hours oral tablet, extended release 1 tablet = 240 mg, By Mouth, Daily at bedtime, # 90 tablet, 1 Refills, Maintenance, 05/09/21 8:45:00 EDT, SR Tablet, [facility], 165, cm, 04/11/21 7:42:00 EDT, [...]
--- OUTSIDE RECORDS SUMMARY | 2023-07-16 14:50 | XMS_ITS | Continuity of Care Document ---
Author Name Unknown Organization [facility] ter Address [address] [place] [address]- Care Team Providers Care Driver Salesman Name Role Phone Maribel Marquez NP Primary Care Physician Encounter [facility] [place] Date(s): 02/20/23 - 02/21/[address] [address]- Encounter Diagnosis Depression(Final) - 02/20/23 Discharge Disposition: A-D/C Home Attending Physician: Han Leggett MD Admitting Physician: Han Leggett MD Referring Physician: Not on Staff, Referring [...] 10:33:00 EST, Inhaler, Route to Pharmacy Electronically, [id number], [facility], 163, cm, 11/16/22 9:43:00 EST, Height, 97.3,... Start Date: 11/16/22 Status: Ordered atorvastatin 10 mg oral tablet 1 tablet = 10 mg, By Mouth, Daily at bedtime, # 30 tablet, 0 Refills, Maintenance, 11/16/22 10:33:00 EST, Tablet, [facility], Partial fill upon patient request if [...] 11/16/22 10:34:00 EST, Route to Pharmacy Electronically, [facility], Partial fill upon patient request if [...] 11/16/22 10:34:00 EST, Route to Pharmacy Electronically, [facility], Partial fill upon patientrequest if the [...] 0 Refills, Maintenance, 11/16/22 10:34:00 EST, Tablet, [facility], Partial fill upon patient request if [...] Start Date: 01/06/23 Status: Ordered nystatin topical 447252 u/gm cream 1 application, Topically, 2 times a day, # 15 Gm, 0 Refills, Maintenance, 01/05/23 15:04:00 EDT, Cream, [facility], Partial fill upon patient request if the prescription is for a schedule II opioid drug., 1 application Topically 2 times a da... Start Date: 01/05/23 Status: Ordered nystatin topical 486011 u/gm cream 0 Refills, Maintenance, 01/06/23 18:05:00 [...] 11/16/22 10:34:00 EST, Route to Pharmacy Electronically, [facility], Partial fill upon patient request if [...] Maintenance,11/16/22 10:34:00 EST, Route to Pharmacy Electronically, [facility], Partial fill upon patient request if [...] 2 Oxygen Saturation [94-100 %] 96 % (02/21/23 12:29 AM) 98 % (02/20/23 8:04 PM) Pulse Rate [55-90 bpm] 83 bpm (02/21/23 12:29 AM) 106 bpm *H* (02/20/23 8:04 PM) Blood Pressure [90-138/55-84 mm Hg] 115/ 72mm Hg (02/21/23 12:29 AM) 147/106mm Hg *H* (02/20/23 8:04 PM) Respiratory Rate [16-30 br/min] 16 br/mi n (02/21/23 12:29 AM) 18 br/min (02/20/23 8:04 PM) Temperature [96.8-100.4 DegF] 98.4 DegF (02/21/23 12:29 AM) 98.6 DegF (02/20/23 8:04 PM) Mode of Delivery (Oxygen) Room air (02/21/23 12:29 AM) Room air (02/20/23 8:04 PM) Blood pressure sites Arm, right (02/21/23 12:29 AM) Arm, right (02/20/23 8:04 PM) Temperature Route Oral (02/21/23 12:29 AM) Oral (02/20/23 8:04 PM) Social History Social History Type Response Smoking Status 10 or more cigarette s (1/2 pack or more)/day in last 30 days; Type: Cigarettes; Other: Reports smoking 1/2-1 packs/day, ending on level of stress; Started at age: 25; entered on: 11/18/22 Sex Patient Care team information Care Team Personnel Name: Rudi Ruiz RN Position: [facility] ED RN W/OE and Tasks Member Role: Primary Care Nurse Name: Alicja Riggs RN Position: [facility] RN Member Role: Primary Care Nurse Name: Ros Fu RN Position: [facility] RN Member Role: Primary Care Nurse Name: Hilda Mccabe RN Position: [facility] RN Member Role: Primary Care Nurse Name: Rosana Kearney RN Position: [facility] SN RN Member Role: Primary Care Nurse Name: Wil Flood RN Position: [facility] RN Member Role: Primary Care Nurse Name: Gagandeep Sheldon RN Position: [facility] RN Member Role: Primary Care Nurse Name: Chip Morton Position: [facility] Outreach Member Role: Lifetime Consulting Physician Name: Alba Daily RN Position: [facility] RN Member Role: Primary Care Nurse Name: Maribel Marquez NP Position: [facility] PCO Associate Professional Member Role: PCP Address: Address: [address] [place] [address]- Name: Jose Ramirez RN Position: [facility] RN Member Role: Primary Care Nurse Name: Brittany Butts RN Position: [facility] AMB Nurse Member Role: Primary Care Nurse Name: Pauline Mcadams RN Position: [facility] RN Member Role: Primary Care Nurse Name: Mary Sánchez RN Position: [facility] RN Member Role: Primary Care Nurse Name: Shama Rosado RN Position: [facility] RN Member Role: Primary Care Nurse Name: Jackie Snyder RN Position: [facility] RN Member Role: Primary Care Nurse Name: Jay Burks NP Position: Reference Physician Member Role: Primary Care Nurse Address: Address: [address] [place] [address] Clinical & [place] [address]- [place] Name: Parvez Kaba MD Position: [facility] Renal MD Member Role: Lifetime Consulting Physician Address: Address: [address] [place] [address] [facility] [place] [address]- [place] Name: Mirna Paul RN Position: [facility] OB RN Member Role: Primary Care Nurse Name: Latonya Rahman RN Position: [facility] Onco RN Member Role: Primary Care Nurse Name: Viki Gonzalez RN Position: [facility] RN Member Role: Primary Care Nurse Name: Claudia Presley RN Position: [facility] RN Member Role: Primary Care Nurse Name: Iirs Villa RN Position: [facility] Hospital Aircraft Manager Member Role: Primary Care Nurse Name: Han Leggett MD Position: [facility] ED Medicine MD Member Role: ED Physician Address: Address: [address] [place] [address]- Name: Brandon Gutierres RN Position: [facility] ED RN W/OE and Tasks Member Role: Patient Care Provider Name: Stephanie Sierra MD Position: [facility] Resident Member Role: ED Resident Address: Address: [address] [place] [address]- Name: Jackie Paz Position: [facility] ED TA [facility] Member Role: Patient Care Provider Care Team Related Persons Name: JO-ANN ROMANLABOUR MARKET ECONOMISTINDRA Address: [address] [place] [address] Name: PHARMACEUTICAL ASSISTANTGREGG Address: [address] [place] [address] Name: CARLOS PAZ Address: home [address] [place] [address]
--- OUTSIDE RECORDS SUMMARY | 2023-07-16 14:50 | XMS_ITS | Continuity of Care Document ---
Author Name Unknown Organization [facility] Adult Address [address] [place] [address]- Care Team Providers Care Wire Coiler Machine Operator Name Role Phone Maribel Marquez NP Primary Care Physician En[place] [facility] [place] Date(s): 04/12/22 - 05/12/22 [facility] Adult [address] [place] [address]- Allergies, Adverse Reactions, Alerts Substance Reaction Severity [...] tablet, 0 Refills, Maintenance, 01/04/22 11:12:00 EDT, [facility], Partial fill upon patient request [...] 04/11/21 9:22:00 EDT, Route to Pharmacy Electronically, [facility], Partial fill upon patient request if the prescription is for a schedule II opioid drCheyanne. Start Date: 04/11/21 Stop Date: 01/06/22 Status: Ordered Flovent HFA 110 mcg/inh inhalation aerosol 2 puffs, Inhalation, 2 times a day, # 12 Gm, 1 Refills, [facility], 162, cm, 03/20/22 19:50:00 EDT, [...] A DAY, # 60 tablet, 5 Refills, [facility],165, cm, 01/19/22 13:55:00 EDT, Height, [...] 01/04/22 11:12:00 EDT, Route to Pharmacy Electronically, [facility], 165, cm, 12/19/21 10:41:00 EST, Height, 103, kg, 11/26/21 8:59:00 EST, DrRobi.. Start Date: 01/04/22 Status: Ordered Nicotine 2 mg gum 1 each = 2 mg, Chew, Every 2 hours, PRN as needed for smoking cessation, for 4 week(s), # 336 each,1 Refills, Acute 05/19/22 14:46:00 EDT, 03/24/22 14:46:00 EDT, Gum, [facility], Partial fill upon patient request [...] 01/19/22 10:48:00 EDT, Route to Pharmacy Electronically, [facility], Partial fill upon patient request [...] Refills, Maintenance, 05/09/21 8:45:00 EDT, SR Tablet, [facility], 165, cm, 04/11/21 7:42:00 EDT, [...]
--- OUTSIDE RECORDS SUMMARY | 2023-07-16 14:50 | XMS_ITS | Continuity of Care Document ---
Author Name Unknown Organization [facility] Adult Address [address] [place] [address]- Care Team Providers Care Assessment Nurse Name Role Phone Maribel Marquez NP Primary Care Physician Encounter [facility] [place] Date(s): 09/18/22 - 10/18/22 [facility] Adult [address] [place] [address]- Allergies, Adverse Reactions, Alerts Substance Reaction Severity [...] tablet, 1 Refills, Maintenance, 07/24/22 15:17:00 EDT, [facility], 165.2, cm, 07/19/22 10:30:00 EDT, Height, [...] 04/11/21 9:22:00 EDT, Route to Pharmacy Electronically, [facility], Partial fill upon patient request if the prescription is for a schedule II opioid dr... Start Date: 04/11/21 Stop Date: 01/06/22 Status: Ordered Flovent HFA 110 mcg/inh inhalation aerosol 2 puffs, Inhalation, 2 times a day, # 12 Gm, 1 Refills, [facility], 162, cm, 03/20/22 19:50:00 EDT, Height, [...] 07/21/22 14:07:00 EDT, Route to Pharmacy Electronically, [facility], Partial fill upon patient requestif the prescription is for a schedule II opioid kaela... Start Date: 07/21/22 Stop Date: 04/17/23 Status: Ordered metFORMIN 500 mg oral tablet See Instructions, TAKE 1 EACH BY MOUTH 2 TIMES A DAY, # 60 tablet, 5 Refills, 10/24/22 10:55:00 EDT, [facility], 165.2, cm, 07/19/22 10:30:00 EDT, Height, [...] 10/04/22 15:29:00 EST, Route to Pharmacy Electronically, [facility], 157, cm, 10/01/22 6:31:00 EST, Height, 100, [...] 1 Refills, Maintenance, 06/23/22 16:17:00 EDT, Aerosol, [facility], Partial fill upon patient [...] 07/28/22 7:45:00 EDT, Route to Pharmacy Electronically, [facility], 165.2, cm, 07/19/22 10:30:00 EDT, Height, [...] Refills, Maintenance, 05/09/21 8:45:00 EDT, SR Tablet, [facility], 165, cm, 04/11/21 7:42:00 EDT, Height, [...] Associate Professional Member Role: PCP Address: Address: [address] [place] [address]- Name: Jose Ramirez RN [facility] [...] Role: Primary Care Nurse Address: Address: [address] [place], [place] [id number] Clinical & [place] [address]- Name: Parvez Kaba MD Position: [facility] Renal MD Member Role: Lifetime Consulting Physician Address: Address: [address] [place] [address] [facility] [place] [address]- Name: Yoana Ledezma RN [facility] RN Position: [facility] Hospital Leather Flesher Member Role: Primary Care Nurse Care Team Related Persons Name: JO-ANN ROMANFISHER DIVINGINDRA Address: [address] [place] [address] Name: PLUG ASSEMBLERGREGG Address: [address] [place] [address] Name: CARLOS PAZ Address: home [address] [place] [address]
--- OUTSIDE RECORDS SUMMARY | 2023-07-16 14:50 | XMS_ITS | Continuity of Care Document ---
Author Name Unknown Organization [facility] Adult Address [address] [place] [address]- Care Team Providers Care Telescope Operator Name Role Phone Maribel Marquez NP Primary Care Physician [phone] Encounter [facility] [place] Date(s): 01/09/23 - 02/08/23 [facility] Adult [address] [place] [address]- Allergies, Adverse Reactions, Alerts Substance Reaction Severity [...] 10:33:00 EST, Inhaler, Route to Pharmacy Electronically, [id number], [facility], 163, cm, 11/16/22 9:43:00 EST, Height, 97.3,... Start Date: 11/16/22 Status: Ordered atorvastatin 10 mg oral tablet 1 tablet = 10 mg, By Mouth, Daily at bedtime, # 30 tablet, 0 Refills, Maintenance, 11/16/22 10:33:00 EST, Tablet, [facility], Partial fill upon patient request if [...] 0 Refills, Maintenance, 11/16/22 10:33:00 EST, Tablet, [facility], Partial fill [...] 11/16/22 10:34:00 EST, Route to Pharmacy Electronically, [facility], Partial fill upon patient request if [...] 0 Refills, Maintenance, 11/16/22 10:34:00 EST, Tablet, [facility], Partial fill upon patient request if [...] 0 Refills, Maintenance, 11/16/22 10:34:00 EST, Tablet, [facility], Partial fill upon patient request if [...] 11/16/22 10:34:00 EST, Route to Pharmacy Electronically, [facility], Partial fill upon patient request if the prescription is for a schedule I... Start Date: 11/16/22 Status: Ordered montelukast 10 mg oral tablet Refills 0, Maintenance, 01/06/23 18:05:00 EDT, Partial fill upon patient request if the prescription is for a schedule II opioid drug. Start Date: 01/06/23 Status: Ordered nystatin topical 185233 u/gm cream 1 application, Topically, 2 times a day, # 15 Gm, 0 Refills, Maintenance, 01/05/23 15:04:00 EDT, Cream, [facility], Partial fill upon patient request if the prescription is for a schedule II opioid drug., 1 application Topically 2 times a da... Start Date: 01/05/23 Status: Ordered nystatin topical 827027 u/gm cream 0 Refills, Maintenance, 01/06/23 18:05:00 [...] 11/16/22 10:34:00 EST, Route to Pharmacy Electronically, [facility], Partial fill upon patient request if [...] Maintenance,11/16/22 10:34:00 EST, Route to Pharmacy Electronically, [facility], Partial fill upon patient request if [...] Team Personnel Name: Rudi Ruiz RN Position: [facility] ED RN W/OE and Tasks Member Role: Primary Care Nurse Name: Alicja Riggs RN Position: [facility] RN Member Role: Primary Care Nurse Name: Ros Fu RN Position: [facility] RN Member Role: Primary Care Nurse Name: Hilda Mccabe RN Position: [facility] RN Member Role: Primary Care Nurse Name: Rosana Kearney RN Position: [facility] SN RN Member Role: Primary Care Nurse Name: Wil Flood RN Position: [facility] RN Member Role: Primary Care Nurse Name: Gagandeep Sheldon RN Position: [facility] RN Member Role: Primary Care Nurse Name: Chip Morton Position: [facility] Outreach Member Role: Lifetime Consulting Physician Name: Alba Daily RN Position: [facility] RN Member Role: Primary Care Nurse Name: Maribel Marquez NP Position: [facility] PCO Associate Professional Member Role: PCP Address: Address: [address] [place] [address] Name: Jose Ramirez RN Position: [facility] RN Member Role: Primary Care Nurse Name: Brittany Butts RN Position: [facility] AMB Nurse Member Role: Primary Care Nurse Name: Pauline Mcadams RN Position: [facility] RN Member Role: Primary Care Nurse Name: Mary Sánchez RN Position: [facility] RN Member Role: Primary Care Nurse Name: Shama Rosado RN Position: [facility] RN Member Role: Primary Care Nurse Name: Jackie Snyder RN Position: [facility] RN Member Role: Primary Care Nurse Name: Jay Burks NP Position: Reference Physician Member Role: Primary Care Nurse Address: Address: [address] [facility] [address] Clinical & [place] [address]- Name: Parvez Kaba MD Position: [facility] Renal MD Member Role: Lifetime Consulting Physician Address: Address: [address] [place] [address] [facility] [place] [address]- Name: Mirna Paul RN Position: [facility] OB RN Member Role: Primary Care Nurse Name: Lacey RNLatonya Position: [facility] Onco RN Member Role: Primary Care Nurse Name: Viki Gonzalez RN Position: [facility] RN Member Role: Primary Care Nurse Name: Claudia Presley RN Position: [facility] RN Member Role: Primary Care Nurse Name: Iris Villa RN Position: [facility] Hospital Furniture Assembler Member Role: Primary Care Nurse Care Team Related Persons Name: JO-ANN ROMANPOST EXCHANGE MANAGERINDRA Address: [address] [place] [address] Name: CERTIFIED ADAPTIVE PHYSICAL EDUCATORGREGG Address: [address] [place] [address] Name: CARLOS PAZ Address: [address] [place] [address]
--- OUTSIDE RECORDS SUMMARY | 2023-07-16 14:50 | XMS_ITS | Continuity of Care Document ---
Author Name Unknown Organization [facility] Adult Address [address] [place] [address]- Care Team Providers Care Hawk Missile System Crewmember Name Role Phone Maribel Marquez NP Primary Care Physician Encounter [facility] [place] Date(s): 07/05/22 - 08/04/22 [facility] Adult [address] [place] [address]- Allergies, Adverse Reactions, Alerts Substance Reaction Severity [...] tablet, 1 Refills, Maintenance, 07/24/22 15:17:00 EDT, [facility], 165.2, cm, 07/19/22 10:30:00 EDT, Height, [...] a day, # 12 Gm, 1 Refills, [facility], 162, cm, 03/20/22 19:50:00 EDT, Height, [...] 07/21/22 14:07:00 EDT, Route to Pharmacy Electronically, [facility], Partial fill upon patient requestif the prescription is for a schedule II opioid kaelaCheyanne. Start Date: 07/21/22 Stop Date: 04/17/23 Status: Ordered metFORMIN 500 mg oral tablet See Instructions, TAKE 1 EACH BY MOUTH 2 TIMES A DAY, # 60 tablet, 5 Refills, [facility],165, cm, 01/19/22 13:55:00 EDT, Height, 103, [...] 01/04/22 11:12:00 EDT, Route to Pharmacy Electronically, [facility], 165, cm, 12/19/21 10:41:00 EST, Height, 103, kg, 11/26/21 8:59:00 EST, . Start Date: 01/04/22 Status: Ordered Nicoderm C-Q Clear 21 mg/24 hr transdermal film, extended release 1 patch, Topically, Daily, for 6 week(s), # 42 patch, 0 Refills, Acute 08/30/22 11:56:00 EST, 07/19/22 11:56:00 EDT, Patch, [facility], Partial fill upon patient request if [...] 01/19/22 10:48:00 EDT, Route to Pharmacy Electronically, [facility], Partial fill upon patient request if the prescription is for a schedule... Start Date: 01/19/22 Status: Ordered ProAir HFA 90 mcg/inh inhalation aerosol 2 puffs, Inhalation, 4 times a day, PRN as needed for wheezing, # 6.7 Gm, 1 Refills, Maintenance, 06/23/22 16:17:00 EDT, Aerosol, [facility], Partial fill upon patient request if [...] 07/28/22 7:45:00 EDT, Route to Pharmacy Electronically, [facility], 165.2, cm, 07/19/22 10:30:00 EDT, Height, [...] Refills, Maintenance, 05/09/21 8:45:00 EDT, SR Tablet, [facility], 165, cm, 04/11/21 7:42:00 EDT, Height, [...] Personnel Name: Maribel Marquez NP Address: Address: [address] [place] [id number]
--- OUTSIDE RECORDS SUMMARY | 2023-07-16 14:50 | XMS_ITS | Continuity of Care Document ---
Author Name Unknown Organization [facility] ter Address [address] [place] [address]- Care Team Providers Care Colored Liquid Plastic Applier Name Role Phone Michelle Norris MD Primary Care Physician [phone] Encounter [facility] [place] Date(s): 10/22/19 - 10/23/[address] [address]- [facility] Encounter Diagnosis Bipolar disorder(Final) - 10/22/19 Discharge Disposition: A-D/C Home Attending Physician: Han [...] Patient Refuses 1Early/Late Reason: Nursing Judgment Medications duloxetine 30 mg oral enteric coated capsule See Instructions, take 3 capsules ( = 90 mg ) daily for mood/anxiety, # 45 capsule, 1 Refills, Maintenance, 08/07/19 9:30:53 EDT, Capsule Start Date: 08/07/19 Status: Ordered Flovent HFA 220 mcg/inh inhalation aerosol 1 puffs, Inhalation, 2 times a day, # 12 Gm, 0 Refills, Maintenance, 03/30/19 13:16:27 EDT, Aerosol Start Date: 03/30/19 Status: Ordered hydrOXYzine pamoate 25 mg oral capsule 1 capsule = 25 mg, By Mouth, 4 times a day, for anxiety, # 60 capsule, 1 Refills, Maintenance, 08/07/19 9:32:13 EDT, Capsule Start Date: 08/07/19 Status: Ordered lisinopril 5 mg oral tablet 5 mg, By Mouth, Daily, for hypertension, # 15 tablet, Refills 1, Tot. Refills 1, Maintenance, 08/07/19 9:36:46 EDT, Route to Pharmacy Electronically, NEPDP_ID- [id number], [facility] Start Date: 08/07/19 Status: Ordered montelukast 10 mg oral tablet 10 mg, By Mouth, Daily, for allergies, # 15 tablet, Refills 1, Tot. Refills 1, Maintenance, 08/07/19 9:37:10 EDT, Route to Pharmacy Electronically, NCPDP_ID- [id number], [facility] Start Date: 08/07/19 Status: Ordered Nicoderm C-Q 21 mg/24 hr transdermal film, extended release 1 patch, Topically, Daily, for nicotine cravings, # 30 patch, 0 Refills, Maintenance, 08/07/19 9:46:49 EDT, Patch Start Date: 08/07/19 Status: Ordered OXcarbazepine 300 mg oral tablet 300 mg, By Mouth, 3 times a day, mood stabilizer, # 45 tablet, Refills 1, Tot. Refills 1, Maintenance, 08/07/19 9:37:48 EDT, Route to Pharmacy Electronically, NCPDP_[id number], [facility] Start Date: 08/07/19 Status: Ordered perphenazine 4 mg oral tablet See Instructions, take 1 and a half tablets (=6 mg) four times daily scheduled and half a tablet (=2 mg) upto 3 times daily as needed for anxiety/agitation, # 60 tablet, Refills 2, Tot. Refills 2, Maintenance, 08/07/19 9:39:33 EDT, Instructions Repl... Start Date: 08/07/19 Status: Ordered prazosin 1 mg oral capsule 1 mg, By Mouth, Daily at bedtime, for nightmares, # 15 tablet, Refills 1, Tot. Refills 1, Maintenance, 08/07/19 9:47:08 EDT, Route to Pharmacy Electronically, NCPDP_[id number], [facility] Start Date: 08/07/19 Status: Ordered simvastatin 20 mg oral tablet See Instructions, take one and a half tablet ( 30 mg ) daily for hyperlipidemia, # 30 tablet, Refills 1, Tot. Refills 1, Maintenance, 08/07/19 9:42:48 EDT, Instructions Replace Required Details, Route to Pharmacy Electronically, NCPDP_ID-[id number], [facility]... Start Date: 08/07/19 Status: Ordered traZODone 150 mg oral tablet 1 tablet = 150 mg, By Mouth, Daily at bedtime, for sleep, # 15 tablet, 1 Refills, Maintenance, 08/07/19 9:47:34 EDT, Tablet Start Date: 08/07/19 Status: Ordered verapamil 240 mg/12 hours oral tablet, extended release = 240 mg, By Mouth, Daily at bedtime, for headaches, # 15 tablet, 1 Refills, Maintenance, 08/07/19 9:46:14 EDT, SR Tablet Start Date: 08/07/19 Status: Ordered Problem List Condition Effective Dates Status Health Status Inform ant Asthma(Confirmed) Active Bipolar disorder(Confirmed) Active Chronic abdominal pain(Confirmed) Active Depression(Confirmed) Active GERD (gastroesophageal reflu x disease)(Confirmed) Active Hyperlipidemia NOS(Confirmed) Active Hypertension(Confirmed) Active Anemia, iron deficiency(Confirmed) Active Nicotine dependence(Confirmed) Active Single major depressive episode(Confirmed) Active Tobacco dependence(Confirmed) Active Vital Signs Most recent to oldest [Reference Range]: 1 2 3 Oxygen Saturation [94-100 %] 98 % (10/23/19 9:29 AM) 97 % (10/23/19 6:35 AM) 95 % (10/23/19 3:30 AM) Pulse Rate [55-90 bpm] 111 bpm *H* (10/23/19 9:29 AM) 80 bpm (10/23/19 6:35 AM) 75 bpm (10/23/19 3:30 AM) Blood Pressure [90-138/55-84 mm Hg] 127/77mm Hg (10/23/19 9:29 AM) 127/77mm Hg (10/23/19 9:20 AM) 127/77mm Hg (10/23/19 9:20 AM) Respiratory Rate [16-30 br/min] 18 br/min (10/23/19 9:29 AM) 16 br/min (10/23/19 6:35 AM) 16 br/min (10/23/19 3:30 AM) Temperature [96.8-100.4 DegF] 98.1 DegF (10/23/19 9:29 AM) 97.7 DegF (10/23/19 6:35 AM) 97.7 DegF (10/23/19 3:30 AM) Mode of Delivery (Oxygen) Room air (10/23/19 9:29 AM) Room air (10/23/19 6:35 AM) Room air (10/23/19 3:30 AM) Blood pressure sites Arm, right (10/23/19 9:29 AM) Arm, right (10/23/19 6:35 AM) Arm, right (10/23/19 3:30 AM) Temperature Route Oral (10/23/19 9:29 AM) Oral (10/23/19 6:35 AM) Oral (10/23/19 3:30 AM) Social History Social History Type Response Smoking Status 10 or more cigarette s (1/2 pack or more)/day in last 30 days; Use: smokes 1 pack a day entered on: 05/10/19 Sex Female
--- OUTSIDE RECORDS SUMMARY | 2023-07-16 14:50 | XMS_ITS | Continuity of Care Document ---
Author Name Unknown Organization [facility] Address [address] [place] [address]- Care Team Providers Care Real Estate Professional Name Role Phone Maribel Marquez NP Primary Care Physician Encounter [facility] [place] Date(s): 04/18/22 - 04/19/[address] [address]- Encounter Diagnosis Suicidal ideation(Final) - 04/18/22 Auditory hallucinations(Final) - 04/19/22 Borderline personality disorder(Final) - 04/19/22 Discharge Disposition: A-D/C Home Attending Physician: Skylar [...] tablet, 0 Refills, Maintenance, 01/04/22 11:12:00 EDT, [facility], Partial fill upon patient [...] a day, # 12 Gm, 2 Refills, [facility], 165, cm, 12/19/21 10:41:00 EST, [...] oral tablet 5 mg, Tablet, By Mouth, 04/19/22 9:00:00 EDT Start Date: 04/19/22 Stop Date: 04/19/22 Status: Completed lisinopril 5 mg oral tablet TAKE 1 [...] A DAY, # 60 tablet, 5 Refills, [facility],165, cm, 01/19/22 13:55:00 EDT, Height, [...] 01/04/22 11:12:00 EDT, Route to Pharmacy Electronically, [facility], 165, cm, 12/19/21 10:41:00 EST, Height, 103, kg, 11/26/21 8:59:00 EST, . Start Date: 01/04/22 Status: Ordered Nicotine 2 mg gum 1 each = 2 mg, Chew, Every 2 hours, PRN as needed for smoking cessation, for 4 week(s), # 336 each,1 Refills, Acute 05/19/22 14:46:00 EDT, 03/24/22 14:46:00 EDT, Gum, [facility], Partial fill upon patient [...] 01/19/22 10:48:00 EDT, Route to Pharmacy Electronically, [facility], Partial fill upon patient [...] Refills, Maintenance, 05/09/21 8:45:00 EDT, SR Tablet, [facility], 165, cm, 04/11/21 7:42:00 EDT, Height, 102.6, kg, 02/12/21 12:14:00 EDT, Dry Weight Start Date: 05/09/21 Status: Ordered Verapamil SR Tablet 240 mg, SR Tablet, By Mouth, 04/19/22 9:00:00 EDT Start Date: 04/19/22 Stop Date: 04/19/22 Status: Completed Problem List Condition Effective Dates [...] 3 Oxygen Saturation [94-100 %] 100 % (04/19/22 6:28 AM) 100 % (04/19/22 5:25 AM) 94 % (04/18/22 10:31 PM) Pulse Rate [55-90 bpm] 88 bpm (04/19/22 11:25 AM) 66 bpm (04/19/22 6:28 AM) 70 bpm (04/19/22 5:25 AM) Blood Pressure [90-138/55-84 mm Hg] 128/86mm Hg (04/19/22 11:25 AM) 128/86mm Hg (04/19/22 9:55 AM) 117/66mm Hg (04/19/22 6:28 AM) Respiratory Rate [16-30 br/min] 20 br/min (04/19/22 6:28 AM) 20 br/min (04/19/22 5:25 AM) 15 br/min *L* (04/18/22 10:31 PM) Temperature [96.8-100.4 DegF] 97.5 DegF (04/19/22 6:28 AM) 98.6 DegF (04/19/22 5:25 AM) 98.6 DegF (04/18/22 10:31 PM) Mode of Delivery (Oxygen) Room air (04/19/22 6:28 AM) Room air (04/19/22 5:25 AM) Room air (04/18/22 10:31 PM) Blood pressure sites Arm, right (04/19/22 6:28 AM) Arm, right (04/19/22 5:25 AM) Arm, right (04/18/22 10:31 PM) Temperature Route Oral (04/19/22 6:28 AM) Oral (04/19/22 5:25 AM) Oral (04/18/22 10:31 PM) Social History Social History Type Response Smoking Status 10 or more cigarette s (1/2 pack or more)/day in last 30 days; Type: Cigarettes; Other: Reports smoking 1/2-1 packs/day, ending on level of stress; Started at age: 25; entered on: 12/31/20 Sex
--- OUTSIDE RECORDS SUMMARY | 2023-07-16 14:50 | XMS_ITS | Continuity of Care Document ---
Author Name Unknown Organization [facility] ter Address [address] [place] [address]- Care Team Providers Care Student Assistant Name Role Phone Maribel Marquez NP Primary Care Physician [phone] [place] [facility] [place]02[place] - 10/02/[address] [address]- Encounter Diagnosis Depression(Final) - 10/02/22 Discharge Disposition: A-D/C Home Attending Physician: Cara [...] tablet, 1 Refills, Maintenance, 07/24/22 15:17:00 EDT, [facility], 165.2, cm, 07/19/22 10:30:00 EDT, Height, [...] a day, # 12 Gm, 1 Refills, [facility], 162, cm, 03/20/22 19:50:00 EDT, Height, [...] 60 tablet, 5 Refills, 08/07/22 10:55:00 EDT, [facility], 165.2, cm, 07/19/22 10:30:00 EDT, Height, [...] 01/04/22 11:12:00 EDT, Route to Pharmacy Electronically, [facility], 165, cm, 12/19/21 10:41:00 EST, Height, [...] 1 Refills, Maintenance, 06/23/22 16:17:00 EDT, Aerosol, [facility], Partial fill upon patient request if [...] 07/28/22 7:45:00 EDT, Route to Pharmacy Electronically, [facility], 165.2, cm, 07/19/22 10:30:00 EDT, Height, [...] Refills, Maintenance, 05/09/21 8:45:00 EDT, SR Tablet, [facility], 165, cm, 04/11/21 7:42:00 EDT, Height, [...] 1 Oxygen Saturation [94-100 %] 99 % (10/02/22 4:19 PM) Pulse Rate [55-90 bpm] 97 bpm *H* (10/02/22 4:19 PM) Blood Pressure [90-138/55-84 mm Hg] 139/ 104mm Hg *H* (10/02/22 4:19 PM) Respiratory Rate [16-30 br/min] 18 br/mi n (10/02/22 4:19 PM) Temperature [96.8-100.4 DegF] 97.5 DegF (10/02/22 4:19 PM) Mode of Delivery (Oxygen) Room air (10/02/22 4:19 PM) Temperature Route Oral (10/02/22 4:19 PM) Social History Social History Type Response Smoking Status 10 or more cigarette s (1/2 pack or more)/day in last 30 days; Other: 1PPD; entered on: 07/19/22 Sex Note * Swapna Amaro DO: PERFORM, SIGN, VERIFY Event Display: Patient Education Handout Authored Date: [id number] * Swapna Amaro DO: PERFORM Event Display: Patient Education Leaflets Authored Date: [id number] Psychiatric Outpatient Referral List ?? 263 Psychiatric Outpatient Referral List [facility] 24hr Emergency Crisis Line? [address] [place] [address], [facility]? [phone] ? [phone] [facility]? [phone] ? [phone] [facility]? [address], [place] ? [phone] ? Walk in: T-Th 9:45-12:45pm [facility]? [address], [place]? [phone] [facility]? [phone] [facility]? [address], [place]? [phone] [facility]? [address], [place]? [phone] [facility]? [address], [place]? [phone] [facility]? [address], [place]? [phone] [facility]? [address], [place]? [phone] ? Walk in: M-Th 8:00-4:00pm [facility]? [address], [place]? [phone] [facility] [place] [facility]? [address] [place]? [phone] [facility]? [address], [place] ? [phone] [facility]? [address], [place]? [phone] [facility]? [address], [place]? [phone] [facility]? [place] &&[place]? [phone] [facility] [address], [place]? [phone] [facility]? [place] &&[place]? [phone] [facility]? [address], [place] ? [phone] [facility]? [address], [place]? [phone] [facility]? [address], [place]? [phone] ? Walk in: M-W 9:30 or 10:30am [facility]? [address], [place]? [phone] ? [phone] Domestic Violence 24 Hr Hot Lines: ? [facility]? [phone] ? [facility]? [phone]? [facility]? [phone] ? [facility]? [phone] ?? Elder Services: ? [facility] [place] [facility]? [phone] ? [facility] ? [phone] ?? Legal Advocacy Hot Line: ? [facility] ? [phone] (9:30-12:45 M-Tisha) ?? [place] Dept of Transitional Assistance: ? [place] [phone] / [place] [phone] / [facility] [phone] ?? DETOX Services [facility]? [address], [place], [place]? [phone] [facility]? [address], [place], [place]? [phone] [facility]? [address], [place], [place]? [phone] [facility] ??? [facility]? [address], [place], [place]? [phone] ? [phone] ? After 5pm:? [phone] [facility] ??? [facility] [address], [place], [place]? [phone] ? [phone]? After 5pm:? [phone] [facility]? [address], [place], [place]? [phone] [facility]? [address], [place], [place]? [phone] ? [phone] [facility]? [address], [place], [place]? [phone] [facility]? [address], [place], [place]? [phone] [facility]? [address], [place], [place]? [phone] [facility]? [address], [place], [place]? [phone] ? [phone] [facility] ?[address], [place], [place]? [phone] [facility]? [address], [place], [place]? [phone] ? [phone] [facility]? [address], [place], [place]? [phone] ? [phone] [facility]? [address], [place], [place]? [phone] [facility]? [address], [place], [place] ? [phone] [facility]? [address], [place], [place]? [phone] ? [phone] ? Patient Care team information Care Team Personnel Name: Rudi Ruiz RN Position: [facility] ED RN W/OE and Tasks Member Role: Primary Care Nurse Name: Alicja Riggs RN Position: [facility] RN Member Role: Primary Care Nurse Name: Ros Fu RN Position: [facility] RN Member Role: Primary Care Nurse Name: Hilda Mccabe RN Position: [facility] RN Member Role: Primary Care Nurse Name: Rosana Kearney RN Position: [facility] AMB Nurse Member Role: Primary Care Nurse Name: Wil Flood RN Position: [facility] RN Member Role: Primary Care Nurse Name: Gagandeep Sheldon RN Position: [facility] RN Member Role: Primary Care Nurse Name: Chip Morton Position: [facility] Outreach Member Role: Lifetime Consulting Physician Name: Alba Daily RN Position: [facility] RN Member Role: Primary Care Nurse Name: Maribel Marquez NP Position: [facility] PCO Associate Professional Member Role: PCP Address: Address: [address] [place] [address]- [place] Name: Jose Ramirez RN Position: [facility] RN Member Role: Primary Care Nurse Name: Brittany Butts RN Position: [facility] AMB Nurse Member Role: Primary Care Nurse Name: Mary Sánchez RN Position: [facility] RN Member Role: Primary Care Nurse Name: Shama Rosado RN Position: [facility] RN Member Role: Primary Care Nurse Name: Jackie Snyder RN Position: [facility] RN Member Role: Primary Care Nurse Name: Jay Burks NP Position: Reference Physician Member Role: Primary Care Nurse Address: Address: [address] [place], [place] [id number] Clinical [facility] [place] [address]- [place] Name: Parvez Kaba MD Position: [facility] Renal MD Member Role: Lifetime Consulting Physician Address: Address: [address] [place] [address] [facility] [place] [address]- Name: Yoana Ledezma RN Position: [facility] RN Member Role: Primary Care Nurse Name: Mirna Paul RN Position: [facility] OB RN Member Role: Primary Care Nurse Name: Latonya Rahman RN Position: [facility] Onco RN Member Role: Primary Care Nurse Name: Claudia Presley RN Position: [facility] RN Member Role: Primary Care Nurse Name: Iris Villa RN Position: [facility] Hospital Coal Drier Operator Member Role: Primary Care Nurse Name: Cara Miranda MD Position: [facility] ED Medicine MD Member Role: Admitting Physician Address: Address: [address] [place] [address]- [place] Name: Stephanie Sierra MD Position: [facility] Resident Member Role: ED Resident Address: Address: [address] [place] [address] [place] [address]- [place] Name: Lenore Mtz RN Position: [facility] ED RN W/OE and Tasks Member Role: Patient Care Provider Care Team Related Persons Name: LISBETH- LOAN OFFICER ASSISTANTINDRA Address: home [address] [place] [address] Name: HOIST MECHANICGREGG Address: home [address] [place] [address] Name: CARLOS PAZ Address: home [address] [place] [address]
--- OUTSIDE RECORDS SUMMARY | 2023-07-16 14:51 | XMS_ITS | Continuity of Care Document ---
Author Name Unknown Organization [facility] Address [address] [place] [address]- Care Team Providers Care Nursery Helper Name Role Phone Maribel Marquez NP Primary Care Physician [place] [facility] [place] Date(s): 01/06/21 - 05/06/21 [facility] [address] [place] [address]- Attending Physician: Maribel Marquez NP Allergies, Adverse [...] 0Refills, Soft Stop, 07/22/20 18:42:00 EDT, Solution, [facility], 163.5, cm, 07/22/20 18:29:00 EDT, Height, 102.5, kg, 07/18/20 21:04:00 EDT,... Start Date: 07/22/20 Status: Ordered lisinopril 5 mg oral tablet 5 mg, 1, tablet, By Mouth, Daily, # 30 tablet, Refills 0, Tot. Refills 0, Maintenance, 02/09/20 10:10:00 EDT, Route to Pharmacy Electronically, [facility], 165, cm, 02/08/20 19:47:00 EDT, Height, [...] 0 Refills, Maintenance, 12/23/20 16:38:00 EST, Tablet, [facility], Partial fill upon patient request if the prescription is for a schedule II opioid drug., 162, cm, 12/23/20 15:59:00 EST... Start Date: 12/23/20 Stop Date: 01/22/21 Status: Ordered montelukast 10 mg oral tablet 10 mg, 1, tablet, By Mouth, Daily, # 30 tablet, Refills 0, Tot. Refills 0, Maintenance, 02/09/20 10:11:00 EDT, Route to Pharmacy Electronically, [facility], 165, cm, 02/08/20 19:47:00 EDT, Height, 104.5, kg, 02/07/20 8:15:00 EDT, Dry Weight Start Date: 02/09/20 Status: Ordered naltrexone 50 mg oral tablet [...] Refills, Maintenance, 04/11/21 9:22:00 EDT, REC Powder, [facility], Partial fill upon patient request if the prescription is for a schedule II opioid drCheyanne. Start Date: 04/11/21 Stop Date: 07/10/21 Status: [...] 0 Refills, Maintenance, 02/09/20 10:05:00 EDT, Inhaler, [facility], 165, cm, 02/08/20 19:47:00 EDT, Height, 104.5, kg, 02/07/20 8:15:00 EDT, Dry Weight Start Date: 02/09/20 Stop Date: 03/10/20 Status: Ordered verapamil 240 mg/12 hours oral tablet, extended release 1 tablet = 240 mg, By Mouth, Daily at bedtime, # 30 tablet, 0 Refills, Maintenance, 02/09/20 10:14:00 EDT, SR Tablet, [facility], 165, cm, 02/08/20 19:47:00 EDT, Height, [...]
--- OUTSIDE RECORDS SUMMARY | 2023-07-16 14:51 | XMS_ITS | Continuity of Care Document ---
Author Name Unknown Organization [facility] ter Address [address] [place] [address]- Care Team Providers Care Resident Engineer Name Role Phone Maribel Marquez NP Primary Care Physician [phone] Encounter [facility] [place] Date(s): 03/20/22 - 03/20/[address] [address]- Encounter Diagnosis COVID-19 virus infection(Final) - 03/20/22 Discharge Disposition: A-D/C Home Attending Physician: Danielle Lorenzo DO Admitting Physician: Daneille Lorenzo DO Referring Physician: Not on Staff, Referring [...] tablet, 0 Refills, Maintenance, 01/04/22 11:12:00 EDT, [facility], Partial fill upon patient request if [...] a day, # 12 Gm, 2 Refills, [facility], 165, cm, 12/19/21 10:41:00 EST, Height, [...] 04/04/22 12:34:00 EDT, 01/04/22 12:34:00 EDT, Tablet, [facility], Partial fill upon patient request if the prescription is f... Start Date: 01/04/22 Stop Date: 04/04/22 Status: Ordered metFORMIN 500 mg oral tablet See Instructions, TAKE 1 EACH BY MOUTH 2 TIMES A DAY, # 60 tablet, 5 Refills, [facility],165, cm, 01/19/22 13:55:00 EDT, Height, 103, [...] 01/04/22 11:12:00 EDT, Route to Pharmacy Electronically, [facility], 165, cm, 12/19/21 10:41:00 EST, Height, [...] 01/19/22 10:48:00 EDT, Route to Pharmacy Electronically, [facility], Partial fill upon patient request if [...] Refills, Maintenance, 05/09/21 8:45:00 EDT, SR Tablet, [facility], 165, cm, 04/11/21 7:42:00 EDT, Height, [...] mellitus(Confirmed) Active 1Problem added by Discern Expert Results Radiology Reports * Exam Date Time Procedure Performing Provider Status 03/20/22 7:02 PM Chest Portable Jessica Diop; Ralph (Verified) Notes: (Chest Portable) Reason For Exam: Shortness of Breath RESULT: Chest Portable Chest Portable Reason: Shortness of Breath; Clinical Question(s): Pneumonia COMPARISON: 02/08/2022 FINDINGS: LINES AND TUBES: None. LUNGS AND PLEURA: Clear lungs. Normal pulmonary vascularity. No pleural effusion. No pneumothorax. HEART, MEDIASTINUM AND HENRY: Heart is normal in size. Normal upper mediastinal and hilar contour. BONES AND SOFT TISSUES: No acute abnormality. IMPRESSION: No acute abnormality. WSN: [id number] Ordering Physician: Surekha Stephens Dictated By: Marie Almeida MD Dictated Date/Time: 03/20/22 7:09 pm Reviewed By: Marie Almeida MD Signed By: Marie Almeida MD Signed Date/Time: 03/20/22 7:09 pm Transcribed By: DAVIS Transcribed Date/Time: 03/20/22 7:09 pm Vital Signs Most recent to oldest [Reference Range]: 1 2 Height 162 cm (03/20/22 7:50 PM) Weight 105 kg (03/20/22 7:50 PM) Oxygen Saturation [94-100 %] 98 % (03/20/22 9:32 PM) 98 % (03/20/22 7:50 PM) Pulse Rate [55-90 bpm] 82 bpm (03/20/22 9:32 PM) 79 bpm (03/20/22 7:50 PM) Blood Pressure [90-138/55-84 mm Hg] 157/ 109mm Hg *H* (03/20/22 9:32 PM) 130/106mm Hg (03/20/22 7:50 PM) Respiratory Rate [16-30 br/min] 16 br/mi n (03/20/22 9:32 PM) 17 br/min (03/20/22 7:50 PM) Temperature [96.8-100.4 DegF] 99.0 DegF (03/20/22 7:50 PM) Mode of Delivery (Oxygen) Room air (03/20/22 7:50 PM) Temperature Route Oral (03/20/22 7:50 PM) Dry Weight 105 kg (03/20/22 7:50 PM) Social History Social History Type Response Smoking Status 10 or more cigarette s (1/2 pack or more)/day in last 30 days; Type: Cigarettes; Other: Reports smoking 1/2-1 packs/day, ending on level of stress; Started at age: 25; entered on: 12/31/20 Sex
--- OUTSIDE RECORDS SUMMARY | 2023-07-16 14:51 | XMS_ITS | Continuity of Care Document ---
Author Name Unknown Organization [facility] ter Address [address] [place] [address]- Care Team Providers Care Geophysical Observer Name Role Phone Maribel Marquez NP Primary Care Physician [phone] Encounter [facility] [place] Date(s): 10/19/21 - 10/20/[address] [address]- Encounter Diagnosis Suicidal ideation(Final) - 10/20/21 Borderline personality disorder(Final) - 10/20/21 Discharge Disposition: A-D/C Home Attending Physician: Dick [...] 0 Refills, Maintenance, 02/09/20 10:08:00 EDT, Tablet, [facility], 165, cm, 02/08/20 19:47:00 EDT, Height, 104.5, kg,02/07/20 8:15:00 EDT, Dry Weight Start Date: 02/09/20 Status: Ordered doxazosin 1 mg oral tablet 3 mg, 3, tablet, By Mouth, Daily at bedtime, # 90 tablet, Refills 0, Tot. Refills 0, Maintenance, 07/22/20 18:41:00 EDT, Route to Pharmacy Electronically, [facility], 163.5, cm, 07/22/20 18:29:00 EDT, Height, 102.5, kg, 07/18/20 21:04:00 EDT... Start Date: 07/22/20 Status: Ordered ferrous sulfate 325 mg oral enteric coated tablet 325 mg, 1, tablet, By Mouth, Daily, # 90 tablet, Refills 2, Tot. Refills 2, Maintenance, 04/11/21 9:22:00 EDT, Route to Pharmacy Electronically, [facility], Partial fill upon patient request if the prescription is for a schedule II opioid Start Date: 04/11/21 Stop Date: 01/06/22 Status: Ordered Flovent HFA 110 mcg/inh inhalation aerosol 2 puffs = 220 mcg, Inhalation, 2 times a day, # 3 each, 3 Refills, Maintenance, 05/09/21 8:41:00 EDT, Aerosol, [facility], 165, cm, 04/11/21 7:42:00 EDT, Height, 102.6, kg, 02/12/21 12:14:00 EDT, Dry Weight Start Date: 05/09/21 Status: Ordered ibuprofen 600 mg oral tablet 600 mg, 1, tablet, By Mouth, Every 6 hours, PRN, # 120 tablet, Refills 0, Tot. Refills 0, Maintenance, Headache, 08/08/21 7:41:00 EDT, Route to Pharmacy Electronically, [facility], Partial fill upon patient request if the prescription is for... Start Date: 08/08/21 Stop Date: 09/07/21 Status: Ordered lisinopril 5 mg oral tablet 5 mg, 1, tablet, By Mouth, Daily, # 90 tablet, Refills 1, Tot. Refills 1, Maintenance, 05/09/21 8:43:00 EDT, Route to Pharmacy Electronically, [facility], 165, cm, 04/11/21 7:42:00 EDT, Height, 102.6, kg, 02/12/21 12:14:00 EDT, Dry Weight Start Date: 05/09/21 Status: Ordered loratadine 10 mg oral tablet 10 mg, 1, tablet, By Mouth, Daily, # 90 tablet, Refills 3, Tot. Refills 3, Maintenance, 04/11/21 9:38:00 EDT, [facility] [...] each, 1 Refills, Maintenance, 05/09/21 8:43:00 EDT,Tablet, [facility], Partial fill upon patient request if the prescription is for a schedule II opioid drug., 165, cm, 04/11/21 7:42:00 EDT, H... Start Date: 05/09/21 Stop Date: 11/05/21 Status: Ordered montelukast 10 mg oral tablet 10 mg, 1, tablet, By Mouth, Daily, # 90 tablet, Refills 1, Tot. Refills 1, Maintenance, 05/09/21 8:45:00 EDT, Route to Pharmacy Electronically, [facility], 165, cm, 04/11/21 7:42:00 EDT, Height, [...] Gm, 5 Refills, Acute, 05/10/21 11:59:00 EDT, [facility], 15, TAKE 17 GM BY MOUTH [...] 0 Refills, Maintenance, 02/09/20 10:05:00 EDT, Inhaler, [facility], 165, cm, 02/08/20 19:47:00 EDT, Height, 104.5, kg, 02/07/20 8:15:00 EDT, Dry Weight Start Date: 02/09/20 Stop Date: 03/10/20 Status: Ordered verapamil 240 mg/12 hours oral tablet, extended release 1 tablet = 240 mg, By Mouth, Daily at bedtime, # 90 tablet, 1 Refills, Maintenance, 05/09/21 8:45:00 EDT, SR Tablet, [facility], 165, cm, 04/11/21 7:42:00 EDT, Height, [...] oldest [Reference Range]: 1 2 3 Height 165.1 cm (10/20/21 10:52 AM) 165.1 cm (10/20/21 12:20 AM) 165.1 cm (10/20/21 12:09 AM) Weight 103.63 kg (10/20/21 10:52 AM) 103.63 kg (10/20/21 12:20 AM) 103.63 kg (10/20/21 12:09 AM) Oxygen Saturation [94-100 %] 98 % (10/20/21 10:52 AM) 97 % (10/20/21 12:09 AM) Pulse Rate [55-90 bpm] 94 bpm *H* (10/20/21 10:52 AM) Body Mass Index [18.5-24.99] 38.02 *>HHI* (10/20/21 10:52 AM) Blood Pressure [90-138/55-84 mm Hg] 123/77mm Hg (10/20/21 10:52 AM) 145/84mm Hg *H* (10/20/21 12:09 AM) Respiratory Rate [16-30 br/min] 16 br/min (10/20/21 10:52 AM) 20 br/min (10/20/21 12:09 AM) Temperature [96.8-100.4 DegF] 98.2 DegF (10/20/21 12:09 AM) Mode of Delivery (Oxygen) Room air (10/20/21 10:52 AM) Room air (10/20/21 12:09 AM) Temperature Route Oral (10/20/21 12:09 AM) Dry Weight 103.63 kg (10/20/21 10:52 AM) 103.63 kg (10/20/21 12:20 AM) 103.63 kg (10/20/21 12:09 AM) Social History Social History Type Response Smoking Status 10 or more cigarette s (1/2 pack or more)/day in last 30 days; Type: Cigarettes; Other: Reports smoking 1/2-1 packs/day, ending on level of stress; Started at age: 25; entered on: 12/31/20 Sex
--- OUTSIDE RECORDS SUMMARY | 2023-07-16 14:51 | XMS_ITS | Continuity of Care Document ---
Author Name Unknown Organization [facility] Adult Address [address] [place] [address]- Care Team Providers Care Vp Of Digital Marketing Name Role Phone Maribel Marquez NP Primary Care Physician [place] [facility] [place] 11[place]21 [facility] [address] [place] [address]- Attending Physician: Jessica Kitchen Admitting Physician: AdmtrJessica Referring Physician: AdmtrJessica Allergies, Adverse Reactions, Alerts [...] 07/22/20 18:41:00 EDT, Route to Pharmacy Electronically, [facility], 163.5, cm, 07/22/20 18:29:00 EDT, Height, [...] 3 Refills, Maintenance, 05/09/21 8:41:00 EDT, Aerosol, [facility], 165, cm, 04/11/21 7:42:00 EDT, Height, [...] 05/09/21 8:43:00 EDT, Route to Pharmacy Electronically, [facility], 165, cm, 04/11/21 7:42:00 EDT, [...] each, 1 Refills, Maintenance, 05/09/21 8:43:00 EDT,Tablet, [facility], Partial fill upon patient request if [...] 05/09/21 8:45:00 EDT, Route to Pharmacy Electronically, [facility], 165, cm, 04/11/21 7:42:00 EDT, Height, [...] Start Date: 11/08/21 Status: Ordered nystatin topical 677901 u/gm cream 1 application, Topically, 2 times [...] Gm, 5 Refills, Acute, 05/10/21 11:59:00 EDT, [facility], 15, TAKE 17 GM BY MOUTH [...] 0 Refills, Maintenance, 02/09/20 10:05:00 EDT, Inhaler, [facility], 165, cm, 02/08/20 19:47:00 EDT, Height, 104.5, kg, 02/07/20 8:15:00 EDT, Dry Weight Start Date: 02/09/20 Stop Date: 03/10/20 Status: Ordered verapamil 240 mg/12 hours oral tablet, extended release 1 tablet = 240 mg, By Mouth, Daily at bedtime, # 90 tablet, 1 Refills, Maintenance, 05/09/21 8:45:00 EDT, SR Tablet, [facility], 165, cm, 04/11/21 7:42:00 EDT, [...]
--- OUTSIDE RECORDS SUMMARY | 2023-07-16 14:51 | XMS_ITS | Continuity of Care Document ---
Author Name Unknown Organization [facility] Adult Address [address] [place] [address]- Care Team Providers Care Refractory Bricklayer Name Role Phone Alma BARAHONA, Maribel Primary Care Physician Encounter [facility] [place] Date(s): 08/17/22 - 09/22/22 [facility] [address] [place], [place] [address] Attending Physician: Maribel Marquez NP Allergies, Adverse [...] tablet, 1 Refills, Maintenance, 07/24/22 15:17:00 EDT, [facility], 165.2, cm, 07/19/22 10:30:00 EDT, Height, [...] a day, # 12 Gm, 1 Refills, [facility], 162, cm, 03/20/22 19:50:00 EDT, Height, [...] 07/21/22 14:07:00 EDT, Route to Pharmacy Electronically, [facility], Partial fill upon patient requestif the prescription is for a schedule II opioid kaela... Start Date: 07/21/22 Stop Date: 04/17/23 Status: Ordered metFORMIN 500 mg oral tablet See Instructions, TAKE 1 EACH BY MOUTH 2 TIMES A DAY, # 60 tablet, 5 Refills, 08/07/22 10:55:00 EDT, [facility], 165.2, cm, 07/19/22 10:30:00 EDT, Height, [...] 01/04/22 11:12:00 EDT, Route to Pharmacy Electronically, [facility], 165, cm, 12/19/21 10:41:00 EST, Height, [...] 01/19/22 10:48:00 EDT, Route to Pharmacy Electronically, [facility], Partial fill upon patient request if the prescription is for a schedule... Start Date: 01/19/22 Status: Ordered ProAir HFA 90 mcg/inh inhalation aerosol 2 puffs, Inhalation, 4 times a day, PRN as needed for wheezing, # 6.7 Gm, 1 Refills, Maintenance, 06/23/22 16:17:00 EDT, Aerosol, [facility], Partial fill upon patient request if [...] 07/28/22 7:45:00 EDT, Route to Pharmacy Electronically, [facility], 165.2, cm, 07/19/22 10:30:00 EDT, Height, [...] Refills, Maintenance, 05/09/21 8:45:00 EDT, SR Tablet, [facility], 165, cm, 04/11/21 7:42:00 EDT, Height, [...] Team Personnel Name: Rudi Ruiz RN Position: [facility] ED RN W/OE and Tasks Member Role: Primary Care Nurse Name: Alicja Riggs RN Position: [facility] RN Member Role: Primary Care Nurse Name: Ros Fu RN Position: [facility] RN Member Role: Primary Care Nurse Name: Hilda Mccabe RN Position: [facility] RN Member Role: Primary Care Nurse Name: Rosana Kearney RN Position: [facility] AMB Nurse Member Role: Primary Care Nurse Name: Wil Flood RN Position: [facility] RN Member Role: Primary Care Nurse Name: Gagandeep Sheldon RN Position: [facility] RN Member Role: Primary Care Nurse Name: Chip Morton Position: [facility] Outreach Member Role: Lifetime Consulting Physician Name: Alba Daily RN Position: [facility] RN Member Role: Primary Care Nurse Name: Maribel Marquez NP Position: [facility] PCO Associate Professional Member Role: PCP Address: Address: [address] [place] [id number]- Name: Jose Ramirez RN Position: [facility] RN Member Role: Primary Care Nurse Name: Brittany Butts RN Position: [facility] AMB Nurse Member Role: Primary Care Nurse Name: Mary Sánchez RN Position: [facility] RN Member Role: Primary Care Nurse Name: Shama Rosado RN Position: [facility] RN Member Role: Primary Care Nurse Name: Jackie Snyder RN Position: [facility] RN Member Role: Primary Care Nurse Name: Jay Burks NP Position: Reference Physician Member Role: Primary Care Nurse Address: Address: [address] [place] [address] [facility] [place] [address]- [place] Name: Parvez Kaba MD Position: [facility] Renal MD Member Role: Lifetime Consulting Physician Address: Address: [address] [place] [address] [facility] [place] [address]- Name: Yoana Ledezma RN Position: [facility] RN Member Role: Primary Care Nurse Name: Mirna Paul RN Position: [facility] OB RN Member Role: Primary Care Nurse Name: Latonya Rahman RN Position: [facility] Onco RN Member Role: Primary Care Nurse Name: Claudia Presley RN Position: [facility] RN Member Role: Primary Care Nurse Name: Iris Villa RN Position: [facility] Hospital Airconditioning Engineer Member Role: Primary Care Nurse Care Team Related Persons Name: JO-ANN ROMANTRADEMARK PARALEGALINDRA Address: home [address] [place] [address] Name: PROFESSOR/NURSE ANESTHETISTGREGG Address: home [address] [place] [address] Name: CARLOS PAZ Address: home [address] [place] [address]
--- OUTSIDE RECORDS SUMMARY | 2023-07-16 14:51 | XMS_ITS | Continuity of Care Document ---
Author Name Unknown Organization [facility] Address [address] [place] [address]- Care Team Providers Care Ship'S Carpenter Name Role Phone Maribel Marquez NP Primary Care Physician Encounter [facility] [place] Date(s): 06/23/22 - 06/30/22 [facility] [address] [place] [address]- Encounter Diagnosis Tingling pain(Discharge Diagnosis) - 06/23/22 Hallucination(Discharge Diagnosis) - 06/23/22 Asthma(Discharge Diagnosis) - 06/23/22 Constipation(Discharge Diagnosis) - 06/23/22 Attending Physician: Maribel Marquez NP Allergies, Adverse [...] tablet, 0 Refills, Maintenance, 01/04/22 11:12:00 EDT, [facility], Partial fill upon patient request if [...] a day, # 12 Gm, 1 Refills, [facility], 162, cm, 03/20/22 19:50:00 EDT, Height, [...] A DAY, # 60 tablet, 5 Refills, [facility],165, cm, 01/19/22 13:55:00 EDT, Height, 103, [...] 01/04/22 11:12:00 EDT, Route to Pharmacy Electronically, [facility], 165, cm, 12/19/21 10:41:00 EST, Height, [...] 01/19/22 10:48:00 EDT, Route to Pharmacy Electronically, [facility], Partial fill upon patient request if the prescription is for a schedule... Start Date: 01/19/22 Status: Ordered ProAir HFA 90 mcg/inh inhalation aerosol 2 puffs, Inhalation, 4 times a day, PRN as needed for wheezing, # 6.7 Gm, 1 Refills, Maintenance, 06/23/22 16:17:00 EDT, Aerosol, [facility], Partial fill upon patient request if [...] 06/23/22 16:16:00 EDT, Route to Pharmacy Electronically, [facility], Partial fill upon los... Start Date: [...] Refills, Maintenance, 05/09/21 8:45:00 EDT, SR Tablet, [facility], 165, cm, 04/11/21 7:42:00 EDT, Height, [...] Discern Expert 2Problem added by Discern Expert Diagnosis Diagnosis Type Effective Dates Health Status Cl inical Service Informant Tingling pain Discharge Diagnosis 06/23/22 Hallucination Discharge Diagnosis 06/23/22 Asthma Discharge Diagnosis 06/23/22 Constipation Discharge Diagnosis 06/23/22 Vital Signs Most recent to oldest [Reference Range]: 1 Height 163 cm (06/23/22 3:10 PM) Weight 95.4 kg (06/23/22 3:10 PM) Body Mass Index [18.5-24.99] 35.91 *>HHI* (06/23/22 3:10 PM) Weight Obtained Via Patient/family state d (06/23/22 3:10 PM) Social History Social History Type Response Smoking Status 10 or more cigarette s (1/2 pack or more)/day in last 30 days; Type: Cigarettes; Other: Reports smoking 1/2-1 packs/day, ending on level of stress; Started at age: 25; entered on: 12/31/20 Sex Care Team Personnel Name: Maribel Marquez NP Address: [address] [place] [id number]
--- OUTSIDE RECORDS SUMMARY | 2023-07-16 14:51 | XMS_ITS | Continuity of Care Document ---
Author Name Unknown Organization [facility] Adult Address [address] [place] [address]- Care Team Providers Care Observer Gravity Prospecting Name Role Phone Maribel Marquez NP Primary Care Physician [place] [facility] [place] 05/09/23 - 06/08/23 [facility] Adult [address] [place] [address]- Allergies, Adverse Reactions, Alerts Substance Reaction Severity [...] each, 5 Refills, Maintenance, 05/22/23 11:32:00 EDT, [facility], Partial fill upon patient request if the prescription is for a schedule II opioid drug., 2 puffs Inhal... Start Date: 05/22/23 Stop Date: 05/22/24 Status: Ordered albuterol CFC free 90 mcg/inh inhalation aerosol 90 mcg, 1, puffs, Inhalation, Every 4 hours, PRN, # 6.7 Gm, Refills 0, Tot. Refills 0, Maintenance,11/16/22 10:33:00 EST, Inhaler, Route to Pharmacy Electronically, NCPDP_[id number], [facility], 163, cm, 11/16/22 9:43:00 EST, Height, 97.3,... Start Date: 11/16/22 Status: Ordered atorvastatin 10 mg oral tablet 1 tablet = 10 mg, By Mouth, Daily at bedtime, # 30 tablet, 0 Refills, Maintenance, 11/16/22 10:33:00 EST, Tablet, [facility], Partial fill upon patient request if [...] 0 Refills, Maintenance, 11/16/22 10:33:00 EST, Tablet, [facility], Partial fill upon patient request if [...] 11/16/22 10:34:00 EST, Route to Pharmacy Electronically, [facility], Partial fill upon patient request if the prescription is for a schedule II opioid d... Start Date: 11/16/22 Stop Date: 08/13/23 Status: Ordered FLUoxetine 20 mg oral capsule 80 mg, 4, capsule, By Mouth, Daily in AM, # 120 capsule, Refills 0, Tot. Refills 0, Maintenance, 11/16/22 10:34:00 EST, Route to Pharmacy Electronically, [facility], Partial fill upon patient request if [...] 60 tablet, 1 Refills, Maintenance,02/22/23 10:08:00 EDT, [facility], 146, cm, 02/05/23 20:22:00 EDT, [...] 0 Refills, Maintenance, 11/16/22 10:34:00 EST, Tablet, [facility], Partial fill upon patient request if [...] 11/16/22 10:34:00 EST, Route to Pharmacy Electronically, [facility], Partial fill upon patient request if [...] 11:34:00 EDT, 05/22/23 11:32:00 EDT, ER Tablet, [facility], Partial fill upon patient request if the prescription is for a radha... Start Date: 05/22/23 Stop Date: 05/29/24 Status: Ordered nystatin topical 224837 u/gm cream 1 application, Topically, 2 times a day, # 15 Gm, 0 Refills, Maintenance, 01/05/23 15:04:00 EDT, Cream, [facility], Partial fill upon patient request if the prescription is for a schedule II opioid drug., 1 application Topically 2 times a da... Start Date: 01/05/23 Status: Ordered nystatin topical 278443 u/gm cream 0 Refills, Maintenance, 01/06/23 18:05:00 [...] Maintenance,11/16/22 10:34:00 EST, Route to Pharmacy Electronically, [facility], Partial fill upon patient request if [...] Care Nurse Name: Alicja Riggs RN Position: [facility] RN Member Role: Primary Care Nurse Name: Ros Fu RN Position: [facility] RN Member Role: Primary Care Nurse Name: Hilda Mccabe RN Position: [facility] RN Member Role: Primary Care Nurse Name: Rosana Kearney RN Position: [facility] SN RN Member Role: Primary Care Nurse Name: Wil Flood RN Position: [facility] RN Member Role: Primary Care Nurse Name: Gagandeep Sheldon RN Position: [facility] RN Member Role: Primary Care Nurse Name: Alba Daily RN Position: [facility] RN Member Role: Primary Care Nurse Name: Maribel Marquez NP Position: [facility] PCO Associate Professional Member Role: PCP Address: Address: [address] [place] [address]- Name: Jose Ramirez RN Position: [facility] RN Member Role: Primary Care Nurse Name: Brittany Butts RN Position: [facility] AMB Nurse Member Role: Primary Care Nurse Name: Pauline Mcadams RN Position: [facility] RN Member [...] Role: Primary Care Nurse Address: Address: [address] [place] [address] [address] Clinical & [place] [address]- [place] Name: Parvez Kaba MD Position: [facility] Renal MD Member Role: Lifetime Consulting Physician Address: Address: [address] [place] [address] [facility] [place] [address]- [place] Name: Mirna Paul RN Position: [facility] OB RN Member Role: Primary Care Nurse Name: Latonya Rahman RN Position: [facility] Onco RN Member Role: Primary Care Nurse Name: Viki Gonzalez RN Position: [facility] RN Member Role: Primary Care Nurse Name: Claudia Presley RN Position: [facility] RN Member Role: Primary Care Nurse Name: Iris Villa RN Position: [facility] Hospital [employer] Skills Member Role: Primary Care Nurse Care Team Related Persons Name: JO-ANN ROMANDIRECT SELLING COUNSELORINDRA Address: [address] [place] [address] Name: ELECTRO PLATERGREGG Address: [address] [place] [address] Name: CARLOS PAZ Address: [address] [place] [address]
--- OUTSIDE RECORDS SUMMARY | 2023-07-16 14:51 | XMS_ITS | Continuity of Care Document ---
Author Name Unknown Organization [facility] Adult Address [address] [place] [address]- Care Team Providers Care Rv Service Technician Name Role Phone Maribel Marquez NP Primary Care Physician [phone] [place] [facility] [place] 06/27/21 - 07/27/21 [facility] Adult [address] [place] [address]- Allergies, Adverse Reactions, Alerts Substance Reaction Severity [...] 0 Refills, Maintenance, 06/28/21 10:16:00 EDT, Tablet, [facility], Partial fill upon patient [...] 0 Refills, Maintenance, 02/09/20 10:08:00 EDT, Tablet, [facility], 165, cm, 02/08/20 19:47:00 EDT, Height, 104.5, kg,02/07/20 8:15:00 EDT, Dry Weight Start Date: 02/09/20 Status: Ordered doxazosin 1 mg oral tablet 3 mg, 3, tablet, By Mouth, Daily at bedtime, # 90 tablet, Refills 0, Tot. Refills 0, Maintenance, 07/22/20 18:41:00 EDT, Route to Pharmacy Electronically, [facility], 163.5, cm, 07/22/20 18:29:00 EDT, Height, [...] 3 Refills, Maintenance, 05/09/21 8:41:00 EDT, Aerosol, [facility], 165, cm, 04/11/21 7:42:00 EDT, Height, 102.6, kg, 02/12/21 12:14:00 EDT, Dry Weight Start Date: 05/09/21 Status: Ordered Haldol Decanoate decanoate 100 mg/ml injectable solution = 100 mg, Intramuscular, Every 28 days, last dose given on 09/17/2020. Next due 10/15/20., # 1 each, 0Refills, Soft Stop, 07/22/20 18:42:00 EDT, Solution, [facility], 163.5, cm, 07/22/20 18:29:00 EDT, Height, 102.5, kg, 07/18/20 21:04:00 EDT,... Start Date: 07/22/20 Status: Ordered lisinopril 5 mg oral tablet 5 mg, 1, tablet, By Mouth, Daily, # 90 tablet, Refills 1, Tot. Refills 1, Maintenance, 05/09/21 8:43:00 EDT, Route to Pharmacy Electronically, [facility], 165, cm, 04/11/21 7:42:00 EDT, Height, 102.6, kg, 02/12/21 12:14:00 EDT, Dry Weight Start Date: 05/09/21 Status: Ordered loratadine 10 mg oral tablet 10 mg, 1, tablet, By Mouth, Daily, # 90 tablet, Refills 3, Tot. Refills 3, Maintenance, 04/11/21 9:38:00 EDT, Route to Pharmacy Electronically, [facility], Partial fill upon patient requestif the [...] each, 1 Refills, Maintenance, 05/09/21 8:43:00 EDT,Tablet, [facility], Partial fill upon patient request if the prescription is for a schedule II opioid drug., 165, cm, 04/11/21 7:42:00 EDT, H... Start Date: 05/09/21 Stop Date: 11/05/21 Status: Ordered montelukast 10 mg oral tablet 10 mg, 1, tablet, By Mouth, Daily, # 90 tablet, Refills 1, Tot. Refills 1, Maintenance, 05/09/21 8:45:00 EDT, Route to Pharmacy Electronically, [facility], 165, cm, 04/11/21 7:42:00 EDT, Height, [...] Gm, 5 Refills, Acute, 05/10/21 11:59:00 EDT, [facility], 15, TAKE 17 GM BY MOUTH [...] 0 Refills, Maintenance, 02/09/20 10:05:00 EDT, Inhaler, [facility], 165, cm, 02/08/20 19:47:00 EDT, Height, 104.5, kg, 02/07/20 8:15:00 EDT, Dry Weight Start Date: 02/09/20 Stop Date: 03/10/20 Status: Ordered verapamil 240 mg/12 hours oral tablet, extended release 1 tablet = 240 mg, By Mouth, Daily at bedtime, # 90 tablet, 1 Refills, Maintenance, 05/09/21 8:45:00 EDT, SR Tablet, [facility], 165, cm, 04/11/21 7:42:00 EDT, Height, [...]
--- OUTSIDE RECORDS SUMMARY | 2023-07-16 14:51 | XMS_ITS | Continuity of Care Document ---
Author Name Unknown Organization [facility] Adult Address [address] [place] [address]- Care Team Providers Care Quarrying Manager Name Role Phone Maribel Marquez NP Primary Care Physician [place] [facility] [place] 07[place]/21 [facility] [address] [place] [address]- Allergies, Adverse Reactions, Alerts Substance Reaction Severity [...] 0 Refills, Maintenance, 06/28/21 10:16:00 EDT, Tablet, [facility], Partial fill [...] 0 Refills, Maintenance, 02/09/20 10:08:00 EDT, Tablet, [facility], 165, cm, 02/08/20 19:47:00 EDT, Height, 104.5, kg,02/07/20 8:15:00 EDT, Dry Weight Start Date: 02/09/20 Status: Ordered doxazosin 1 mg oral tablet 3 mg, 3, tablet, By Mouth, Daily at bedtime, # 90 tablet, Refills 0, Tot. Refills 0, Maintenance, 07/22/20 18:41:00 EDT, Route to Pharmacy Electronically, [facility], 163.5, cm, 07/22/20 18:29:00 EDT, Height, [...] 3 Refills, Maintenance, 05/09/21 8:41:00 EDT, Aerosol, [facility], 165, cm, 04/11/21 7:42:00 EDT, Height, 102.6, kg, 02/12/21 12:14:00 EDT, Dry Weight Start Date: 05/09/21 Status: Ordered Haldol Decanoate decanoate 100 mg/ml injectable solution = 100 mg, Intramuscular, Every 28 days, last dose given on 09/17/2020. Next due 10/15/20., # 1 each, 0Refills, Soft Stop, 07/22/20 18:42:00 EDT, Solution, [facility], 163.5, cm, 07/22/20 18:29:00 EDT, Height, 102.5, kg, 07/18/20 21:04:00 EDT,... Start Date: 07/22/20 Status: Ordered lisinopril 5 mg oral tablet 5 mg, 1, tablet, By Mouth, Daily, # 90 tablet, Refills 1, Tot. Refills 1, Maintenance, 05/09/21 8:43:00 EDT, Route to Pharmacy Electronically, [facility], 165, cm, 04/11/21 7:42:00 EDT, Height, 102.6, kg, 02/12/21 12:14:00 EDT, Dry Weight Start Date: 05/09/21 Status: Ordered loratadine 10 mg oral tablet 10 mg, 1, tablet, By Mouth, Daily, # 90 tablet, Refills 3, Tot. Refills 3, Maintenance, 04/11/21 9:38:00 EDT, Route to Pharmacy Electronically, [facility], Partial fill upon patient requestif the [...] each, 1 Refills, Maintenance, 05/09/21 8:43:00 EDT,Tablet, [facility], Partial fill upon patient request if the prescription is for a schedule II opioid drug., 165, cm, 04/11/21 7:42:00 EDT, H... Start Date: 05/09/21 Stop Date: 11/05/21 Status: Ordered montelukast 10 mg oral tablet 10 mg, 1, tablet, By Mouth, Daily, # 90 tablet, Refills 1, Tot. Refills 1, Maintenance, 05/09/21 8:45:00 EDT, Route to Pharmacy Electronically, [facility], 165, cm, 04/11/21 7:42:00 EDT, Height, [...] Gm, 5 Refills, Acute, 05/10/21 11:59:00 EDT, [facility], 15, TAKE 17 GM BY MOUTH [...] 0 Refills, Maintenance, 02/09/20 10:05:00 EDT, Inhaler, [facility], 165, cm, 02/08/20 19:47:00 EDT, Height, 104.5, kg, 02/07/20 8:15:00 EDT, Dry Weight Start Date: 02/09/20 Stop Date: 03/10/20 Status: Ordered verapamil 240 mg/12 hours oral tablet, extended release 1 tablet = 240 mg, By Mouth, Daily at bedtime, # 90 tablet, 1 Refills, Maintenance, 05/09/21 8:45:00 EDT, SR Tablet, [facility], 165, cm, 04/11/21 7:42:00 EDT, Height, [...]
--- OUTSIDE RECORDS SUMMARY | 2023-07-16 14:51 | XMS_ITS | Continuity of Care Document ---
Author Name Unknown Organization [facility] ter Address [address] [place] [address]- Care Team Providers Care Slip Bridge Operator Name Role Phone Maribel Marquez NP Primary Care Physician [phone] [place] [facility] [place] - 03/23/[address] [address]- Encounter Diagnosis COVID-19(Final) - 03/23/22 Discharge Disposition: A-D/C Home Attending Physician: Sabrina Chowdhury MD Admitting Physician: Sabrina Chowdhury MD Referring Physician: Not on Staff, Referring [...] tablet, 0 Refills, Maintenance, 01/04/22 11:12:00 EDT, [facility], Partial fill upon patient request if [...] 04/11/21 9:22:00 EDT, Route to Pharmacy Electronically, [facility], Partial fill upon patient request if the prescription is for a schedule II opioid . Start Date: 04/11/21 Stop Date: 01/06/22 Status: Ordered Flovent HFA 110 mcg/inh inhalation aerosol 2 puffs, Inhalation, 2 times a day, # 12 Gm, 2 Refills, [facility], 165, cm, 12/19/21 10:41:00 EST, Height, [...] opioid drug. Start Date: 03/03/22 Status: Ordered lisinopril 5 mg oral tablet 5 mg, Tablet, By Mouth, 03/23/22 9:00:00 EDT Start Date: 03/23/22 Stop Date: 03/23/22 Status: Completed lithium 450 mg oral tablet, [...] 04/04/22 12:34:00 EDT, 01/04/22 12:34:00 EDT, Tablet, [facility], Partial fill upon patient request if the prescription is f... Start Date: 01/04/22 Stop Date: 04/04/22 Status: Ordered metFORMIN 500 mg oral tablet See Instructions, TAKE 1 EACH BY MOUTH 2 TIMES A DAY, # 60 tablet, 5 Refills, [facility],165, cm, 01/19/22 13:55:00 EDT, Height, 103, [...] 01/04/22 11:12:00 EDT, Route to Pharmacy Electronically, [facility], 165, cm, 12/19/21 10:41:00 EST, Height, [...] 01/19/22 10:48:00 EDT, Route to Pharmacy Electronically, [facility], Partial fill upon patient request if [...] Refills, Maintenance, 05/09/21 8:45:00 EDT, SR Tablet, [facility], 165, cm, 04/11/21 7:42:00 EDT, Height, 102.6, kg, 02/12/21 12:14:00 EDT, Dry Weight Start Date: 05/09/21 Status: Ordered Verapamil SR Tablet 240 mg, SR Tablet, By Mouth, 03/23/22 9:00:00 EDT Start Date: 03/23/22 Stop Date: 03/23/22 Status: Completed Problem List Condition Effective Dates [...] mellitus(Confirmed) Active 1Problem added by Discern Expert Vital Signs Most recent to oldest [Reference Range]: 1 2 3 Oxygen Saturation [94-100 %] 97 % (03/23/22 12:20 PM) 96 % (03/23/22 9:33 AM) 97 % (03/23/22 7:25 AM) Pulse Rate [55-90 bpm] 89 bpm (03/23/22 12:20 PM) 93 bpm *H* (03/23/22 9:33 AM) 92 bpm *H* (03/23/22 9:32 AM) Blood Pressure [90-138/55-84 mm Hg] 133/62mm Hg (03/23/22 12:20 PM) 142/66mm Hg *H* (03/23/22 9:33 AM) 142/66mm Hg *H* (03/23/22 9:32 AM) Respiratory Rate [16-30 br/min] 17 br/min (03/23/22 12:20 PM) 16 br/min (03/23/22 9:33 AM) 17 br/min (03/23/22 7:25 AM) Temperature [96.8-100.4 DegF] 97.6 DegF (03/23/22 7:25 AM) 98.2 DegF (03/22/22 8:13 PM) 98.6 DegF (03/22/22 6:29 PM) Mode of Delivery (Oxygen) Room air (03/23/22 12:20 PM) Room air (03/23/22 9:33 AM) Room air (03/23/22 7:25 AM) Blood pressure sites Arm, right (03/23/22 12:20 PM) Arm, right (03/23/22 9:33 AM) Arm, right (03/23/22 7:25 AM) Temperature Route Oral (03/23/22 7:25 AM) Oral (03/22/22 8:13 PM) Oral (03/22/22 6:29 PM) Social History Social History Type Response Smoking Status 10 or more cigarette s (1/2 pack or more)/day in last 30 days; Type: Cigarettes; Other: Reports smoking 1/2-1 packs/day, ending on level of stress; Started at age: 25; entered on: 12/31/20 Sex
--- OUTSIDE RECORDS SUMMARY | 2023-07-16 14:51 | XMS_ITS | Continuity of Care Document ---
Author Name Unknown Organization [facility] Adult Address [address] [place] [address]- Care Team Providers Care Outside Sales Representative Name Role Phone Maribel Marquez NP Primary Care Physician Encounter [facility] [place] Date(s): 02/03/22 - 03/05/22 [facility] [address] [place] [address]- Allergies, Adverse Reactions, Alerts Substance Reaction Severity [...] 0 Refills, Maintenance, 01/04/22 11:12:00 EDT, [facility], Partial fill upon patient request if [...] 9:22:00 EDT, Route to Pharmacy Electronically, [facility], Partial fill upon patient request if the prescription is for a schedule II opioid . Start Date: 04/11/21 Stop Date: 01/06/22 Status: Ordered Flovent HFA 110 mcg/inh inhalation aerosol 2 puffs, Inhalation, 2 times a day, # 12 Gm, 2 Refills, [facility], 165, cm, 12/19/21 10:41:00 EST, Height, [...] 12:34:00 EDT, 01/04/22 12:34:00 EDT, Tablet, [facility], Partial fill upon patient request if the prescription is f... Start Date: 01/04/22 Stop Date: 04/04/22 Status: Ordered metFORMIN 500 mg oral tablet See Instructions, TAKE 1 EACH BY MOUTH 2 TIMES A DAY, # 60 tablet, 5 Refills, [facility],165, cm, 01/19/22 13:55:00 EDT, Height, 103, [...] 11:12:00 EDT, Route to Pharmacy Electronically, [facility], 165, cm, 12/19/21 10:41:00 EST, Height, [...] 01/19/22 10:48:00 EDT, Route to Pharmacy Electronically, [facility] [...] Maintenance, 05/09/21 8:45:00 EDT, SR Tablet, [facility], 165, cm, 04/11/21 7:42:00 EDT, Height, [...]
--- OUTSIDE RECORDS SUMMARY | 2023-07-16 14:52 | XMS_ITS | Continuity of Care Document ---
Author Name Unknown Organization [facility] ter Address [address] [place] [address]- Care Team Providers Care Events Manager Name Role Phone Maribel Marquez NP Primary Care Physician [phone] [place] [facility] [place]23 - 02/12/[address] [address]- Encounter Diagnosis Constipation(Final) - 02/12/23 Discharge Disposition: A-D/C Home Attending Physician: Lenore Adair MD Admitting Physician: Lenore Adair MD Referring Physician: Not on Staff, Referring [...] 10:33:00 EST, Inhaler, Route to Pharmacy Electronically, NCPDP_[id number], [facility], 163, cm, 11/16/22 9:43:00 EST, Height, 97.3,... Start Date: 11/16/22 Status: Ordered atorvastatin 10 mg oral tablet 1 tablet = 10 mg, By Mouth, Daily at bedtime, # 30 tablet, 0 Refills, Maintenance, 11/16/22 10:33:00 EST, Tablet, [facility], Partial fill upon patient request if [...] 0 Refills, Maintenance, 11/16/22 10:33:00 EST, Tablet, [facility], Partial fill upon patient request if [...] 11/16/22 10:34:00 EST, Route to Pharmacy Electronically, [facility], Partial fill upon patient request if [...] 02/19/23 0:07:00 EDT, 02/12/23 0:07:00 EDT, Syrup, [facility], Partial fill upon patient [...] 0 Refills, Maintenance, 11/16/22 10:34:00 EST, Tablet, [facility], Partial fill upon patient request if [...] prescription is fora schedule II opioid drug., 163 cm, 11/16/22 9:43:... Start Date: 11/16/22 Status: [...] Start Date: 01/06/23 Status: Ordered nystatin topical 438702 u/gm cream 1 application, Topically, 2 times a day, # 15 Gm, 0 Refills, Maintenance, 01/05/23 15:04:00 EDT, Cream, [facility], Partial fill upon patient request if the prescription is for a schedule II opioid drug., 1 application Topically 2 times a da... Start Date: 01/05/23 Status: Ordered nystatin topical [id number] u/gm cream 0 Refills, Maintenance, 01/06/23 18:05:00 [...] 11/16/22 10:34:00 EST, Route to Pharmacy Electronically, [facility], Partial fill upon patient request if [...] Maintenance,11/16/22 10:34:00 EST, Route to Pharmacy Electronically, [facility], Partial fill upon patient request if [...] Date Time Procedure Performing Provider Status 02/11/23 11:[address] Abd/Pelvis W/ IV + Oral Contrast Valdemar Bolanos (Verified) Notes: (CT Abd/Pelvis W/ IV + Oral Contrast) Reason For Exam: RLQ abdominal pain;Other: RESULT: CT Abd/Pelvis W/ IV + Oral Contrast CT Abd/Pelvis W/ IV + Oral Contrast Hx of Present Illness: SI; Reason: Other:; RLQ abdominal pain; Clinical Question(s): Obstruction TECHNIQUE: Spiral CT through the abdomen and pelvis with IV contrast formatted in 3 planes. 100 cc of Omnipaque 300 was administered intravenously. This study was performed without oral contrast. Weight-based protocol using automatic tube modulation was used to optimize exposure parameters. CTDIvol Body: 15.30 mGy, DLP Body: 900 mGy*cm. COMPARISON: 02/08/2022 and 12/16/2016. FINDINGS: Automation Control Integrator View Findings, Lines and Tubes: None. Visualized Chest: Small bilateral pleural effusions, similar to prior, with minimal adjacent atelectasis. No focal consolidation. The heart is normal in size. No pericardial effusion. Diaphragm: Normal. Liver: Normal. Gallbladder: No CT evidence of gallbladder pathology. Bile ducts: No biliary ductal dilation. Spleen: Normal. Pancreas: Normal. Adrenal glands: Normal. Kidneys and ureters: No hydronephrosis, stones, or suspicious masses. Bladder: Normal. Reproductive organs: Unchanged fat density dermoid on the right ovary measuring 1.5 cm. Stomach, small bowel, and large bowel: No evidence of obstruction or inflammation. Enteric contrastreaches ileum moderate fecal retention seen throughout the colon. Appendix: Normal. Peritoneum and retroperitoneum: No ascites or pneumoperitoneum. No omental or mesenteric lesions. Lymph nodes: No enlarged lymph nodes. Blood vessels: Normal. No aneurysm. No evidence of venous thrombosis. Abdominal and pelvic wall: Small fat-containing umbilical hernia Bones: No acute abnormality. IMPRESSION: No CT evidence of acute intra-abdominal or pelvic abnormality. Moderate fecal retention seen throughout the colon, suggestive of constipation. Small bilateral pleural effusions. Stable small right ovarian dermoid. I have personally reviewed the images and I agree with this report. WSN: [id number] Ordering Physician: Raisa Wellington Dictated By: Amalia Sales DO Dictated Date/Time: 02/11/23 11:38 p Reviewed By: Ava Bolden MD Signed By: Ava Bolden MD Signed Date/Time: 02/11/23 11:43 pm Transcribed By: DAVIS Transcribed Date/Time: 02/11/23 11:31 pm Vital Signs Most recent to oldest [Reference Range]: 1 2 Weight 100 kg (02/11/23 9:04 PM) Oxygen Saturation [94-100 %] 95 % (02/12/23 12:41 AM) 95 % (02/11/23 9:04 PM) Pulse Rate [55-90 bpm] 113 bpm *H* (02/12/23 12:41 AM) 110 bpm *H* (02/11/23 9:04 PM) Blood Pressure [90-138/55-84 mm Hg] 118/ 74mm Hg (02/12/23 12:41 AM) 107/89mm Hg (02/11/23 9:04 PM) Respiratory Rate [16-30 br/min] 16 br/mi n (02/12/23 12:41 AM) 18 br/min (02/11/23 9:04 PM) Temperature [96.8-100.4 DegF] 98.0 DegF (02/11/23 9:04 PM) Mode of Delivery (Oxygen) Room air (02/12/23 12:41 AM) Room air (02/11/23 9:04 PM) Temperature Route Oral (02/11/23 9:04 PM) Social History Social History Type Response Smoking Status 10 or more cigarette s (1/2 pack or more)/day in last 30 days; Type: Cigarettes; Other: Reports smoking 1/2-1 packs/day, ending on level of stress; Started at age: 25; entered on: 11/18/[address] Abdomen and Pelvis W contrast IV * [facility]SP[facility]ers[employer] , CIS S: TRANSCRIBE Ava Bolden MD: VERIFY Mónica SHINAmalia: SIGN Event Display: Result: Authored Date: [id number] CT Abd/Pelvis W/ IV + Oral Contrast Hx of Present Illness: SI; Reason: Other:; RLQ abdominal pain; Clinical Question(s): Obstruction TECHNIQUE: Spiral CT through the abdomen and pelvis with IV contrast formatted in 3 planes. 100 cc of Omnipaque 300 was administered intravenously. This study was performed without oral contrast. Weight-based protocol using automatic tube modulation was used to optimize exposure parameters. CTDIvol Body: 15.30 mGy, DLP Body: 900 mGy*cm. COMPARISON: 02/08/2022 and 12/16/2016. FINDINGS: Automation Control Integrator View Findings, Lines and Tubes: None. Visualized Chest: Small bilateral pleural effusions, similar to prior, with minimal adjacent atelectasis. No focal consolidation. The heart is normal in size. No pericardial effusion. Diaphragm: Normal. Liver: Normal. Gallbladder: No CT evidence of gallbladder pathology. Bile ducts: No biliary ductal dilation. Spleen: Normal. Pancreas: Normal. Adrenal glands: Normal. Kidneys and ureters: No hydronephrosis, stones, or suspicious masses. Bladder: Normal. Reproductive organs: Unchanged fat density dermoid on the right ovary measuring 1.5 cm. Stomach, small bowel, and large bowel: No evidence of obstruction or inflammation. Enteric contrastreaches ileum moderate fecal retention seen throughout the colon. Appendix: Normal. Peritoneum and retroperitoneum: No ascites or pneumoperitoneum. No omental or mesenteric lesions. Lymph nodes: No enlarged lymph nodes. Blood vessels: Normal. No aneurysm. No evidence of venous thrombosis. Abdominal and pelvic wall: Small fat-containing umbilical hernia Bones: No acute abnormality. IMPRESSION: No CT evidence of acute intra-abdominal or pelvic abnormality. Moderate fecal retention seen throughout the colon, suggestive of constipation. Small bilateral pleural effusions. Stable small right ovarian dermoid. I have personally reviewed the images and I agree with this report. WSN: [id number] Ordering Physician: Raisa Wellington Dictated By: Amalia Sales DO Dictated Date/Time: 02/11/23 11:38 p Reviewed By: Ava Bolden MD Signed By: Ava Bolden MD Signed Date/Time: 02/11/23 11:43 pm Transcribed By: DAVIS Transcribed Date/Time: 02/11/23 11:31 pm Patient Care team information Care Team [...] Professional Member Role: PCP Address: Address: [address] [place] [id number] Name: Jose Ramirez RN Position: [facility] Role: Primary Care Nurse Address: Address: [address] [facility] [address] Clinical [facility] [place] [address]- [place] Name: Parvez Kaba MD Position: [facility] Renal MD Member Role: Lifetime Consulting Physician Address: Address: [address] [place] [address] [facility] [place] [address]- [place] Name: Mirna Paul RN Position: [facility] [...] Villa RN Position: [facility] Hospital Documentation Writer Member Role: Primary Care Nurse Name: Leslee Ford RN Position: [facility] ED RN W/OE and Tasks Member Role: Patient Care Provider Name: Raisa Wellington DO Position: [facility] Resident Member Role: ED Resident Address: Address: [address] [place] [address]- [place] Name: Lenore Adair MD Position: [facility] ED Medicine MD Member Role: ED Attending Physician Address: Address: [address] [place] [address]- [place] Name: Justina Kimbrough Position: [facility] ED TA [facility] Member Role: Nuisance Wildlife Control Operator Care Team Related Persons Name: JO-ANN ROMANCATERING BARISTAINDRA Address: home [address] [place] [address] Name: ANCILLARY SERVICES MANAGERGREGG Address: home [address] [place] [address] Name: CARLOS PAZ Address: home [address] [place] [address]
--- OUTSIDE RECORDS SUMMARY | 2023-07-16 14:52 | XMS_ITS | Continuity of Care Document ---
Author Name Unknown Organization [facility] Address [address] [place] [address]- Care Team Providers Care Data Warehouse Architect Name Role Phone Maribel Marquez NP Primary Care Physician [phone] [place] [facility] [place] Date(s): 07/20/22 - 08/19/22 [facility] [address], [place] [address] Allergies, Adverse Reactions, Alerts Substance Reaction Severity Status codeine Active lithium 1 Active predniSONE Active Seafood Active Geodon Active penicillin Active sulfa drugs [...] tablet, 1 Refills, Maintenance, 07/24/22 15:17:00 EDT, [facility], 165.2, cm, 07/19/22 10:30:00 EDT, Height, [...] 04/11/21 9:22:00 EDT, Route to Pharmacy Electronically, [facility], Partial fill upon patient request if the prescription is for a schedule II opioid dr... Start Date: 04/11/21 Stop Date: 01/06/22 Status: Ordered Flovent HFA 110 mcg/inh inhalation aerosol 2 puffs, Inhalation, 2 times a day, # 12 Gm, 1 Refills, [facility], 162, cm, 03/20/22 19:50:00 EDT, Height, [...] 07/21/22 14:07:00 EDT, Route to Pharmacy Electronically, [facility], Partial fill upon patient requestif the prescription is for a schedule II opioid kaela... Start Date: 07/21/22 Stop Date: 04/17/23 Status: Ordered metFORMIN 500 mg oral tablet See Instructions, TAKE 1 EACH BY MOUTH 2 TIMES A DAY, # 60 tablet, 5 Refills, 10/24/22 10:55:00 EDT, [facility], 165.2, cm, 07/19/22 10:30:00 EDT, Height, [...] 01/04/22 11:12:00 EDT, Route to Pharmacy Electronically, [facility], 165, cm, 12/19/21 10:41:00 EST, Height, 103, kg, 11/26/21 8:59:00 EST, . Start Date: 01/04/22 Status: Ordered Nicoderm C-Q Clear 21 mg/24 hr transdermal film, extended release 1 patch, Topically, Daily, for 6 week(s), # 42 patch, 0 Refills, Acute 08/30/22 11:56:00 EST, 07/19/22 11:56:00 EDT, Patch, [facility], Partial fill upon patient request if [...] 01/19/22 10:48:00 EDT, Route to Pharmacy Electronically, [facility], Partial fill upon patient request if the prescription is for a schedule... Start Date: 01/19/22 Status: Ordered ProAir HFA 90 mcg/inh inhalation aerosol 2 puffs, Inhalation, 4 times a day, PRN as needed for wheezing, # 6.7 Gm, 1 Refills, Maintenance, 06/23/22 16:17:00 EDT, Aerosol, [facility], Partial fill upon patient request if [...] 07/28/22 7:45:00 EDT, Route to Pharmacy Electronically, [facility], 165.2, cm, 07/19/22 10:30:00 EDT, Height, [...] Refills, Maintenance, 05/09/21 8:45:00 EDT, SR Tablet, [facility], 165, cm, 04/11/21 7:42:00 EDT, Height, [...] Personnel Name: Maribel Marquez NP Address: Address: [address] [place] [id number]
--- OUTSIDE RECORDS SUMMARY | 2023-07-16 14:52 | XMS_ITS | Continuity of Care Document ---
Author Name Unknown Organization [facility] ter Address [address] [place] [address]- Care Team Providers Care Interior Wirer Name Role Phone Maribel Marquez NP Primary Care Physician Encounter [facility] [place] Date(s): 11/14/21 - 11/15/[address] [address]- Discharge Disposition: A-D/C Home Attending Physician: Robby [...] 07/22/20 18:41:00 EDT, Route to Pharmacy Electronically, [facility], 163.5, cm, 07/22/20 18:29:00 EDT, Height, [...] 3 Refills, Maintenance, 05/09/21 8:41:00 EDT, Aerosol, [facility], 165, cm, 04/11/21 7:42:00 EDT, Height, [...] 05/09/21 8:43:00 EDT, Route to Pharmacy Electronically, [facility], 165, cm, 04/11/21 7:42:00 EDT, Height, 102.6, [...] 04/11/21 9:38:00 EDT, [facility] each, 1 Refills, Maintenance, 05/09/21 8:43:00 EDT,Tablet, [facility], Partial fill upon patient request if [...] 05/09/21 8:45:00 EDT, Route to Pharmacy Electronically, [facility], 165, cm, 04/11/21 7:42:00 EDT, Height, [...] Start Date: 11/08/21 Status: Ordered nystatin topical 200883 u/gm cream 1 application, Topically, 2 times [...] Gm, 5 Refills, Acute, 05/10/21 11:59:00 EDT, [facility], 15, TAKE 17 GM BY MOUTH [...] 0 Refills, Maintenance, 02/09/20 10:05:00 EDT, Inhaler, [facility], 165, cm, 02/08/20 19:47:00 EDT, Height, 104.5, kg, 02/07/20 8:15:00 EDT, Dry Weight Start Date: 02/09/20 Stop Date: 03/10/20 Status: Ordered verapamil 240 mg/12 hours oral tablet, extended release 1 tablet = 240 mg, By Mouth, Daily at bedtime, # 90 tablet, 1 Refills, Maintenance, 05/09/21 8:45:00 EDT, SR Tablet, [facility], 165, cm, 04/11/21 7:42:00 EDT, Height, 102.6, [...] 3 Oxygen Saturation [94-100 %] 100 % (11/15/21 10:41 AM) 97 % (11/15/21 5:17 AM) 94 % (11/14/21 6:11 PM) Pulse Rate [55-90 bpm] 80 bpm (11/15/21 10:41 AM) 72 bpm (11/15/21 5:17 AM) 93 bpm *H* (11/14/21 6:11 PM) Blood Pressure [90-138/55-84 mm Hg] 121/75mm Hg (11/15/21 10:41 AM) 105/55mm Hg (11/15/21 5:17 AM) 142/78mm Hg *H* (11/14/21 9:15 PM) Respiratory Rate [16-30 br/min] 16 br/min (11/15/21 10:41 AM) 16 br/min (11/14/21 6:11 PM) Temperature [96.8-100.4 DegF] 98.2 DegF (11/15/21 10:41 AM) 98.2 DegF (11/15/21 5:17 AM) 98.4 DegF (11/14/21 6:11 PM) Mode of Delivery (Oxygen) Room air (11/15/21 10:41 AM) Room air (11/15/21 5:17 AM) Room air (11/14/21 6:11 PM) Blood pressure sites Arm, left (11/15/21 5:17 AM) Temperature Route Oral (11/15/21 10:41 AM) Oral (11/15/21 5:17 AM) Oral (11/14/21 6:11 PM) Social History Social History Type Response Smoking Status 10 or more cigarette s (1/2 pack or more)/day in last 30 days; Type: Cigarettes; Other: Reports smoking 1/2-1 packs/day, ending on level of stress; Started at age: 25; entered on: 12/31/20 Sex
--- OUTSIDE RECORDS SUMMARY | 2023-07-16 14:52 | XMS_ITS | Continuity of Care Document ---
Author Name Unknown Organization [facility] Adult Address [address] [place] [address]- Care Team Providers Care Bone Char Kiln Operator Name Role Phone Maribel Marquez NP Primary Care Physician Encounter [facility] [place] Date(s): 09/06/21 - 10/06/21 [facility] Adult [address] [place] [address]- Allergies, Adverse Reactions, Alerts Substance Reaction Severity [...] 0 Refills, Maintenance, 06/28/21 10:16:00 EDT, Tablet, [facility], Partial fill upon patient [...] 0 Refills, Maintenance, 02/09/20 10:08:00 EDT, Tablet, [facility], 165, cm, 02/08/20 19:47:00 EDT, Height, 104.5, kg,02/07/20 8:15:00 EDT, Dry Weight Start Date: 02/09/20 Status: Ordered doxazosin 1 mg oral tablet 3 mg, 3, tablet, By Mouth, Daily at bedtime, # 90 tablet, Refills 0, Tot. Refills 0, Maintenance, 07/22/20 18:41:00 EDT, Route to Pharmacy Electronically, [facility], 163.5, cm, 07/22/20 18:29:00 EDT, Height, [...] 3 Refills, Maintenance, 05/09/21 8:41:00 EDT, Aerosol, [facility], 165, cm, 04/11/21 7:42:00 EDT, Height, 102.6, kg, 02/12/21 12:14:00 EDT, Dry Weight Start Date: 05/09/21 Status: Ordered ibuprofen 600 mg oral tablet 600 mg, 1, tablet, By Mouth, Every 6 hours, PRN, # 120 tablet, Refills 0, Tot. Refills 0, Maintenance, Headache, 08/08/21 7:41:00 EDT, Route to Pharmacy Electronically, [facility], Partial fill upon patient request if the prescription is for... Start Date: 08/08/21 Stop Date: 09/07/21 Status: Ordered lisinopril 5 mg oral tablet 5 mg, 1, tablet, By Mouth, Daily, # 90 tablet, Refills 1, Tot. Refills 1, Maintenance, 05/09/21 8:43:00 EDT, Route to Pharmacy Electronically, [facility], 165, cm, 04/11/21 7:42:00 EDT, Height, 102.6, kg, 02/12/21 12:14:00 EDT, Dry Weight Start Date: 05/09/21 Status: Ordered loratadine 10 mg oral tablet 10 mg, 1, tablet, By Mouth, Daily, # 90 tablet, Refills 3, Tot. Refills 3, Maintenance, 04/11/21 9:38:00 EDT, Route to Pharmacy Electronically, [facility], Partial fill upon patient requestif the [...] each, 1 Refills, Maintenance, 05/09/21 8:43:00 EDT,Tablet, [facility], Partial fill upon patient request if the prescription is for a schedule II opioid drug., 165, cm, 04/11/21 7:42:00 EDT, H... Start Date: 05/09/21 Stop Date: 11/05/21 Status: Ordered montelukast 10 mg oral tablet 10 mg, 1, tablet, By Mouth, Daily, # 90 tablet, Refills 1, Tot. Refills 1, Maintenance, 05/09/21 8:45:00 EDT, Route to Pharmacy Electronically, [facility], 165, cm, 04/11/21 7:42:00 EDT, Height, [...] Gm, 5 Refills, Acute, 05/10/21 11:59:00 EDT, [facility], 15, TAKE 17 GM BY MOUTH [...] 0 Refills, Maintenance, 02/09/20 10:05:00 EDT, Inhaler, [facility], 165, cm, 02/08/20 19:47:00 EDT, Height, 104.5, kg, 02/07/20 8:15:00 EDT, Dry Weight Start Date: 02/09/20 Stop Date: 03/10/20 Status: Ordered verapamil 240 mg/12 hours oral tablet, extended release 1 tablet = 240 mg, By Mouth, Daily at bedtime, # 90 tablet, 1 Refills, Maintenance, 05/09/21 8:45:00 EDT, SR Tablet, [facility], 165, cm, 04/11/21 7:42:00 EDT, Height, [...]
--- OUTSIDE RECORDS SUMMARY | 2023-07-16 14:52 | XMS_ITS | Continuity of Care Document ---
Author Name Unknown Organization [facility] ter Address [address] [place] [id number]- Care Team Providers Care Early Morning Name Role Phone Maribel Marquez NP Primary Care Physician Encounter [facility] [place] Date(s): 06/26/23 - 06/26/[address] [address]- Encounter Diagnosis Borderline personality disorder(Final) - 06/26/23 PTSD (post-traumatic stress disorder)(Final) - 06/26/23 Self-cutting of wrist(Final) - 06/26/23 Discharge Disposition: A-D/C Home Attending Physician: Mary [...] each, 5 Refills, Maintenance, 05/22/23 11:32:00 EDT, [facility], Partial fill upon patient request if the prescription is for a schedule II opioid drug., 2 puffs Inhal... Start Date: 05/22/23 Stop Date: 05/22/24 Status: Ordered albuterol CFC free 90 mcg/inh inhalation aerosol 90 mcg, 1, puffs, Inhalation, Every 4 hours, PRN, # 6.7 Gm, Refills 0, Tot. Refills 0, Maintenance,11/16/22 10:33:00 EST, Inhaler, Route to Pharmacy Electronically, NCPDP_[id number], [facility], 163, cm, 11/16/22 9:43:00 EST, Height, 97.3,... Start Date: 11/16/22 Status: Ordered atorvastatin 10 mg oral tablet 1 tablet = 10 mg, By Mouth, Daily at bedtime, # 30 tablet, 0 Refills, Maintenance, 11/16/22 10:33:00 EST, Tablet, [facility], Partial fill upon patient request if [...] 11/16/22 10:33:00 EST, Route to Pharmacy Electronically, [facility], Partial fill upon patientrequest if the [...] 0 Refills, Maintenance, 11/16/22 10:33:00 EST, Tablet, [facility], Partial fill upon patient request if [...] 11/16/22 10:34:00 EST, Route to Pharmacy Electronically, [facility], Partial fill upon patient request if the prescription is for a schedule II opioid d... Start Date: 11/16/22 Stop Date: 08/13/23 Status: Ordered FLUoxetine 20 mg oral capsule 80 mg, 4, capsule, By Mouth, Daily in AM, # 120 capsule, Refills 0, Tot. Refills 0, Maintenance, 11/16/22 10:34:00 EST, Route to Pharmacy Electronically, [facility], Partial fill upon patient request if [...] 11/16/22 10:34:00 EST, Route to Pharmacy Electronically, [facility], Partial fill upon patientrequest if the [...] 02/12/23 10:51:00 EDT, Route to Pharmacy Electronically, [facility], Partial fill upon patient requestif the [...] 60 tablet, 1 Refills, Maintenance,02/22/23 10:08:00 EDT, [facility], 146, cm, 02/05/23 20:22:00 EDT, Height, [...] 0 Refills, Maintenance, 11/16/22 10:34:00 EST, Tablet, [facility], Partial fill upon patient request if [...] 0 Refills, Maintenance, 11/16/22 10:34:00 EST, Tablet, [facility], Partial [...] 11/16/22 10:34:00 EST, [facility] Pharmacy Electron[facility], [facility] [...] 11:34:00 EDT, 05/22/23 11:32:00 EDT, ER Tablet, [facility], Partial fill upon patient request if the prescription is for a radha... Start Date: 05/22/23 Stop Date: 05/29/24 Status: Ordered nystatin topical 011353 u/gm cream 1 application, Topically, 2 times a day, # 15 Gm, 0 Refills, Maintenance, 01/05/23 15:04:00 EDT, Cream, [facility], Partial fill upon patient request if the prescription is for a schedule II opioid drug., 1 application Topically 2 times a da... Start Date: 01/05/23 Status: Ordered nystatin topical 630908 u/gm cream 0 Refills, Maintenance, 01/06/23 18:05:00 [...] 11/16/22 10:34:00 EST, Route to Pharmacy Electronically, [facility], Partial fill upon patient request if [...] Maintenance,11/16/22 10:34:00 EST, Route to Pharmacy Electronically, [facility], Partial fill upon patient request if [...] [Reference Range]: 1 2 Height 165 cm (06/26/23 5:52 PM) Weight 105 kg (06/26/23 5:52 PM) Oxygen Saturation [94-100 %] 98 % (06/26/23 9:02 PM) 98 % (06/26/23 5:52 PM) Pulse Rate [55-90 bpm] 96 bpm *H* (06/26/23 9:02 PM) 97 bpm *H* (06/26/23 5:52 PM) Blood Pressure [90-138/55-84 mm Hg] 136/ 64mm Hg (06/26/23 9:02 PM) 134/94mm Hg (06/26/23 5:52 PM) Respiratory Rate [16-30 br/min] 18 br/mi n (06/26/23 9:02 PM) 20 br/min (06/26/23 5:52 PM) Temperature [96.8-100.4 DegF] 97.4 DegF (06/26/23 5:52 PM) Temperature Route Oral (06/26/23 5:52 PM) Dry Weight 105 kg (06/26/23 5:52 PM) Social History Social History Type Response Smoking Status 10 or more cigarette s (1/2 pack or more)/day in last 30 days; Type: Cigarettes; Other: Reports smoking 1/2-1 packs/day, ending on level of stress; Started at age: 25; entered on: 11/18/22 Sex Patient Care team information Care Team Personnel Name: Rudi Ruiz RN Position: [facility] ED RN W/OE and Tasks Member Role: Primary Care Nurse Name: Alicja Riggs RN Position: [facility] RN Member Role: Primary Care Nurse Name: Ros Fu RN Position: [facility] RN Member Role: Primary Care Nurse Name: Hilda Mccabe RN Position: S RN Member Role: Primary Care Nurse Name: Rosana Kearney RN Position: [facility] RN Member Role: Primary Care Nurse Name: Wil Flood RN Position: [facility] RN Member Role: Primary Care Nurse Name: Gagandeep Sheldon RN Position: [facility] RN Member Role: Primary Care Nurse Name: Alba Daily RN Position: [facility] RN Member Role: Primary Care Nurse Name: Jose Ramirez RN Position: [facility] ED RN W/OE and Tasks Member Role: Primary Care Nurse Name: Brittany Butts RN Position: [facility] AMB Nurse Member Role: Primary Care Nurse Name: Pauline Mcadams RN Position: [facility] RN Member Role: Primary Care Nurse Name: Mary Sánchez RN Position: [facility] RN Member Role: Primary Care Nurse Name: Shama Rosado RN Position: [facility] RN Member Role: Primary Care Nurse Name: Jackie Snyder RN Position: [facility] RN Member Role: Primary Care Nurse Name: Jay Burks NP Position: Reference Physician Member Role: Primary Care Nurse Address: Address: [address] [place], [place] [id number] Clinical & [place] [address]- Name: Parvez Kaba MD Position: [facility] Renal MD Member Role: Lifetime Consulting Physician Address: Address: [address] [place] [address] [facility] [place] [address]- Name: Mirna Paul RN Position: [facility] OB RN Member Role: Primary Care Nurse Name: Latonya Rahman RN Position: [facility] Onco RN Member Role: Primary Care Nurse Name: Viki Gonzalez RN Position: [facility] RN Member Role: Primary Care Nurse Name: Claudia Presley RN Position: [facility] RN Member Role: Primary Care Nurse Name: Iris Villa RN Position: [facility] Hospital Carbide Tool Die Maker Member Role: Primary Care Nurse Name: Floresita North DO Position: [facility] Resident Member Role: Resident Address: Address: [address] [place] [address]- [place] Name: Mary Beltran MD Position: [facility] ED Medicine MD Member Role: Admitting Physician Address: Address: [address] [place] [address]- [place] Name: Keily Bolanos Position: [facility] ED [facility] Care Team Related Persons Name: JO-ANN ROMANSWITCHBOARD MECHANICINDRA Address: [address] [place] [address] Name: AND RESCUE FIRE FIGHTER CRASH FIREGREGG Address: [address] [place] [address] Name: CARLOS PAZ Address: home [address] [place] [address]
--- OUTSIDE RECORDS SUMMARY | 2023-07-16 14:52 | XMS_ITS | Continuity of Care Document ---
Author Name Unknown Organization [facility] Address [address] [place] [address]- Care Team Providers Care Director Pediatric Name Role Phone Maribel Marquez NP Primary Care Physician [phone] Encounter [facility] [place] Date(s): 08/29/22 - 08/30/[address] [address]- Encounter Diagnosis Hallucination(Final) - 08/29/22 Intentional self-harm by razor blade(Final) - 08/29/22 Depression(Final) - 08/29/22 Discharge Disposition: A-D/C Home Attending Physician: Beni LE, Jessica Hebert Admitting Physician: Jessica Bazan MD Referring Physician: [...] tablet, 1 Refills, Maintenance, 07/24/22 15:17:00 EDT, [facility], 165.2, cm, 07/19/22 10:30:00 EDT, Height, [...] 04/11/21 9:22:00 EDT, Route to Pharmacy Electronically, [facility], Partial fill upon patient request if the prescription is for a schedule II opioid drCheyanne. Start Date: 04/11/21 Stop Date: 01/06/22 Status: Ordered Flovent HFA 110 mcg/inh inhalation aerosol 2 puffs, Inhalation, 2 times a day, # 12 Gm, 1 Refills, [facility], 162, cm, 03/20/22 19:50:00 EDT, Height, [...] 07/21/22 14:07:00 EDT, Route to Pharmacy Electronically, [facility], Partial fill upon patient requestif the prescription is for a schedule II opioid janet. Start Date: 07/21/22 Stop Date: 04/17/23 Status: Ordered lisinopril 5 mg oral tablet 5 mg, Tablet, By Mouth, 08/30/22 9:00:00 EST Start Date: 08/30/22 Stop Date: 08/30/22 Status: Completed metFORMIN 500 mg oral tablet See Instructions, TAKE 1 EACH BY MOUTH 2 TIMES A DAY, # 60 tablet, 5 Refills, 08/07/22 10:55:00 EDT, [facility], 165.2, cm, 07/19/22 10:30:00 EDT, Height, [...] 01/04/22 11:12:00 EDT, Route to Pharmacy Electronically, [facility], 165, cm, 12/19/21 10:41:00 EST, Height, [...] 01/19/22 10:48:00 EDT, Route to Pharmacy Electronically, [facility], Partial fill upon patient request if the prescription is for a schedule... Start Date: 01/19/22 Status: Ordered prazosin 1 mg oral capsule 4 mg, Capsule, By Mouth, 08/29/22 23:16:00 EST Start Date: 08/29/22 Stop Date: 08/30/22 Status: Completed ProAir HFA 90 mcg/inh inhalation aerosol 2 puffs, Inhalation, 4 times a day, PRN as needed for wheezing, # 6.7 Gm, 1 Refills, Maintenance, 06/23/22 16:17:00 EDT, Aerosol, [facility], Partial fill upon patient request if [...] 07/28/22 7:45:00 EDT, Route to Pharmacy Electronically, [facility], 165.2, cm, 07/19/22 10:30:00 EDT, Height, [...] Refills, Maintenance, 05/09/21 8:45:00 EDT, SR Tablet, [facility], 165, cm, 04/11/21 7:42:00 EDT, Height, [...] 3 Oxygen Saturation [94-100 %] 97 % (08/30/22 9:30 AM) 95 % (08/30/22 5:27 AM) 100 % (08/29/22 7:27 PM) Pulse Rate [55-90 bpm] 85 bpm (08/30/22 9:30 AM) 88 bpm (08/30/22 5:27 AM) 99 bpm *H* (08/29/22 7:27 PM) Blood Pressure [90-138/55-84 mm Hg] 123/79mm Hg (08/30/22 9:30 AM) 125/77mm Hg (08/30/22 7:57 AM) 125/77mm Hg (08/30/22 7:57 AM) Respiratory Rate [16-30 br/min] 16 br/min (08/30/22 9:31 AM) 16 br/min (08/30/22 9:30 AM) 20 br/min (08/30/22 5:27 AM) Temperature [96.8-100.4 DegF] 97.8 DegF (08/30/22 9:30 AM) 98.1 DegF (08/29/22 6:35 PM) Mode of Delivery (Oxygen) Room air (08/30/22 9:30 AM) Room air (08/30/22 5:27 AM) Room air (08/29/22 7:27 PM) Blood pressure sites Arm, left (08/30/22 9:30 AM) Arm, left (08/29/22 6:35 PM) Temperature Route Oral (08/30/22 9:30 AM) Oral (08/29/22 6:35 PM) Social History Social History Type Response Smoking Status 10 or more cigarette s (1/2 pack or more)/day in last 30 days; Other: 1PPD; entered on: 07/19/22 Sex Note * Ros Sapp MD: PERFORM, SIGN, VERIFY Event Display: Patient Education Handout Authored Date: [id number] Patient Care team information Care Team Personnel Name: Rudi Ruiz RN Position: [facility] ED RN W/OE and Tasks Member Role: Primary Care Nurse Name: Alicja Riggs RN Position: [facility] RN Member Role: Primary Care Nurse Name: Ros Fu RN Position: [facility] RN Member Role: Primary Care Nurse Name: Hilda Mccabe RN Position: [facility] RN Member Role: Primary Care Nurse Name: Rosana Kearney RN Position: [facility] AMB Nurse Member Role: Primary Care Nurse Name: Wil Flood RN Position: [facility] RN Member Role: Primary Care Nurse Name: Gagandeep Sheldon RN Position: [facility] RN Member Role: Primary Care Nurse Name: Chip Morton Position: [facility] Outreach Member Role: Lifetime Consulting Physician Name: Abla Daily RN Position: [facility] RN Member Role: Primary Care Nurse Name: Maribel Marquez NP Position: [facility] PCO Associate Professional Member Role: PCP Address: Address: [address] [place] [address]- Name: Jose Ramirez RN Position: [facility] RN Member Role: Primary Care Nurse Name: Brittany Butts RN Position: [facility] AMB Nurse Member Role: Primary Care Nurse Name: Mary Sánchez RN Position: [facility] RN Member Role: Primary Care Nurse Name: Shama Rosado RN Position: [facility] RN Member Role: Primary Care Nurse Name: Jackie Snyder RN Position: [facility] RN Member Role: Primary Care Nurse Name: Jay Burks NP Position: Reference Physician Member Role: Primary Care Nurse Address: Address: [address] [place] [address] Clinical & [place] [address]- Name: Parvez Kaba MD Position: [facility] Renal MD Member Role: Lifetime Consulting Physician Address: Address: [address] [place] [address] [facility] [place] [address]- Name: Yoana Ledezma RN Position: [facility] RN Member Role: Primary Care Nurse Name: Mirna Paul RN Position: [facility] OB RN Member Role: Primary Care Nurse Name: Latonya Rahman RN Position: [facility] Onco RN Member Role: Primary Care Nurse Name: Claudia Presley RN Position: [facility] RN Member Role: Primary Care Nurse Name: Iris Villa RN Position: [facility] Hospital Pediatric Occupational Therapist Member Role: Primary Care Nurse Name: James Krishnan Position: [facility] ED TA [facility] Name: Ros Sapp MD Position: [facility] Resident Member Role: ED Resident Address: Address: [address] [place] [address]- Name: April Nunez RN Position: [facility] ED RN W/OE and Tasks Member Role: Patient Care Provider Name: Jessica Bazan MD Position: [facility] ED Medicine MD Member Role: ED Attending Physician Address: Address: [address] [place] [address]- Care Team Related Persons Name: JO-ANN ROMANPOT FEEDERINDRA Address: [address] [place] [address] Name: LASER ENGINEERGREGG Address: [address] [place] [address] Name: CARLOS PAZ Address: [address] [place] [address]
--- OUTSIDE RECORDS SUMMARY | 2023-07-16 14:52 | XMS_ITS | Continuity of Care Document ---
Author Name Unknown Organization [facility] ter Address [address] [place] [address]- Care Team Providers Care Dampproofer Name Role Phone Michelle Norris MD Primary Care Physician [place] [facility] [place] - 10/21/[address] [address]- [facility] Encounter Diagnosis Depression(Final) - 10/21/19 Discharge Disposition: A-D/C Home Attending Physician: Dick [...] 08/07/19 9:36:46 EDT, Route to Pharmacy Electronically, PAPDP_ID- [id number], [facility] Start Date: 08/07/19 Status: Ordered montelukast 10 mg oral tablet 10 mg, By Mouth, Daily, for allergies, # 15 tablet, Refills 1, Tot. Refills 1, Maintenance, 08/07/19 9:37:10 EDT, Route to Pharmacy Electronically, NCPDP_ID- [id number], [facility] Start Date: 08/07/19 Status: Ordered Nicoderm [...] 08/07/19 9:37:48 EDT, Route to Pharmacy Electronically, NCPDP_[id number], [facility] Start Date: 08/07/19 Status: Ordered perphenazine [...] 08/07/19 9:47:08 EDT, Route to Pharmacy Electronically, NCPDP_[id number], [facility] Start Date: 08/07/19 Status: Ordered simvastatin 20 mg oral tablet See Instructions, take one and a half tablet ( 30 mg ) daily for hyperlipidemia, # 30 tablet, Refills 1, Tot. Refills 1, Maintenance, 08/07/19 9:42:48 EDT, Instructions Replace Required Details, Route to Pharmacy Electronically, NCPDP_[id number], [facility]... Start Date: 08/07/19 Status: Ordered traZODone [...] 2 Oxygen Saturation [94-100 %] 98 % (10/21/19 3:13 PM) 97 % (10/21/19 11:46 AM) Pulse Rate [55-90 bpm] 92 bpm *H* (10/21/19 3:13 PM) 91 bpm *H* (10/21/19 11:46 AM) Blood Pressure [90-138/55-84 mm Hg] 141/ 80mm Hg *H* (10/21/19 3:13 PM) 140/88mm Hg *H* (10/21/19 11:46 AM) Respiratory Rate [16-30 br/min] 18 br/mi n (10/21/19 3:13 PM) 18 br/min (10/21/19 11:46 AM) Temperature [96.8-100.4 DegF] 98.5 DegF (10/21/19 11:46 AM) Mode of Delivery (Oxygen) Room air (10/21/19 3:13 PM) Room air (10/21/19 11:46 AM) Blood pressure sites Arm, right (10/21/19 3:13 PM) Arm, right (10/21/19 11:46 AM) Temperature Route Oral (10/21/19 11:46 AM) Social History Social History Type Response Smoking Status 10 or more cigarette s (1/2 pack or more)/day in last 30 days; Use: smokes 1 pack a day entered on: 05/10/19 Sex Female
--- OUTSIDE RECORDS SUMMARY | 2023-07-16 14:52 | XMS_ITS | Continuity of Care Document ---
Author Name Unknown Organization [facility] Address [address] [place] [address]- Care Team Providers Care Gi Technician Name Role Phone Maribel Marquez NP Primary Care Physician [place] [facility] [place]s): 07/01/21 - 07/31/21 [facility] [address] [place] [address]- Allergies, Adverse Reactions, Alerts Substance Reaction Severity [...] 0 Refills, Maintenance, 06/28/21 10:16:00 EDT, Tablet, [facility], Partial fill [...] 0 Refills, Maintenance, 02/09/20 10:08:00 EDT, Tablet, [facility], 165, cm, 02/08/20 19:47:00 EDT, Height, 104.5, kg,02/07/20 8:15:00 EDT, Dry Weight Start Date: 02/09/20 Status: Ordered doxazosin 1 mg oral tablet 3 mg, 3, tablet, By Mouth, Daily at bedtime, # 90 tablet, Refills 0, Tot. Refills 0, Maintenance, 07/22/20 18:41:00 EDT, Route to Pharmacy Electronically, [facility], 163.5, cm, 07/22/20 18:29:00 EDT, Height, [...] 3 Refills, Maintenance, 05/09/21 8:41:00 EDT, Aerosol, [facility], 165, cm, 04/11/21 7:42:00 EDT, Height, 102.6, kg, 02/12/21 12:14:00 EDT, Dry Weight Start Date: 05/09/21 Status: Ordered Haldol Decanoate decanoate 100 mg/ml injectable solution = 100 mg, Intramuscular, Every 28 days, last dose given on 09/17/2020. Next due 10/15/20., # 1 each, 0Refills, Soft Stop, 07/22/20 18:42:00 EDT, Solution, [facility], 163.5, cm, 07/22/20 18:29:00 EDT, Height, 102.5, kg, 07/18/20 21:04:00 EDT,... Start Date: 07/22/20 Status: Ordered lisinopril 5 mg oral tablet 5 mg, 1, tablet, By Mouth, Daily, # 90 tablet, Refills 1, Tot. Refills 1, Maintenance, 05/09/21 8:43:00 EDT, Route to Pharmacy Electronically, [facility], 165, cm, 04/11/21 7:42:00 EDT, Height, 102.6, kg, 02/12/21 12:14:00 EDT, Dry Weight Start Date: 05/09/21 Status: Ordered loratadine 10 mg oral tablet 10 mg, 1, tablet, By Mouth, Daily, # 90 tablet, Refills 3, Tot. Refills 3, Maintenance, 04/11/21 9:38:00 EDT, [facility] each, 1 Refills, Maintenance, 05/09/21 8:43:00 EDT,Tablet, [facility], Partial fill upon patient request if the prescription is for a schedule II opioid drug., 165, cm, 04/11/21 7:42:00 EDT, H... Start Date: 05/09/21 Stop Date: 11/05/21 Status: Ordered montelukast 10 mg oral tablet 10 mg, 1, tablet, By Mouth, Daily, # 90 tablet, Refills 1, Tot. Refills 1, Maintenance, 05/09/21 8:45:00 EDT, Route to Pharmacy Electronically, [facility], 165, cm, 04/11/21 7:42:00 EDT, Height, [...] Gm, 5 Refills, Acute, 05/10/21 11:59:00 EDT, [facility], 15, TAKE 17 GM BY MOUTH [...] 0 Refills, Maintenance, 02/09/20 10:05:00 EDT, Inhaler, [facility], 165, cm, 02/08/20 19:47:00 EDT, Height, 104.5, kg, 02/07/20 8:15:00 EDT, Dry Weight Start Date: 02/09/20 Stop Date: 03/10/20 Status: Ordered verapamil 240 mg/12 hours oral tablet, extended release 1 tablet = 240 mg, By Mouth, Daily at bedtime, # 90 tablet, 1 Refills, Maintenance, 05/09/21 8:45:00 EDT, SR Tablet, [facility], 165, cm, 04/11/21 7:42:00 EDT, Height, [...]
--- OUTSIDE RECORDS SUMMARY | 2023-07-16 14:52 | XMS_ITS | Continuity of Care Document ---
Author Name Unknown Organization [facility] ter Address [address] [place] [id number]- Care Team Providers Care Skein Tier Name Role Phone Maribel Marquez NP Primary Care Physician Encounter [facility] Date(s): 01/24/23 - 01/25/[address] [address]- Encounter Diagnosis Urinary tract infection(Final) - 01/25/23 Head injury(Final) - 01/25/23 Knee contusion(Final) - 01/25/23 Discharge Disposition: A-D/C Home Attending Physician: Han [...] 10:33:00 EST, Inhaler, Route to Pharmacy Electronically, NCPDP_ID-[id number], [facility], 163, cm, 11/16/22 9:43:00 EST, Height, 97.3,... Start Date: 11/16/22 Status: Ordered atorvastatin 10 mg oral tablet 1 tablet = 10 mg, By Mouth, Daily at bedtime, # 30 tablet, 0 Refills, Maintenance, 11/16/22 10:33:00 EST, Tablet, [facility], Partial fill upon patient request if [...] By Mouth, 4 times a day, for 7 days, # 28 capsule, 0 Refills, Acute 02/01/23 9:36:00 EDT, 01/25/23 9:36:00 EDT, Capsule, [facility], Partial fill upon patient request ifthe prescription is for a schedule II opioid drug.,... Start Date: 01/25/23 Stop Date: 02/01/23 Status: Ordered chlorproMAZINE 50 mg oral tablet 1 tablet = 50 mg, By Mouth, 3 times a day, PRN Anxiety, # 90 tablet, 0 Refills, Maintenance, 11/16/22 10:33:00 EST, Tablet, [facility], Partial fill upon patient request if [...] 0 Refills, Maintenance, 11/16/22 10:34:00 EST, Tablet, [facility], Partial fill upon patient request if the prescription is for a schedule II opioid drug., 163 cm, 11/16/22 9:43:00 EST,... Start Date: 11/16/22 [...] prescription is fora schedule II opioid drug., [id number] j, 11/16/22 9:43:... Start Date: 11/16/22 Status: [...] 11/16/22 10:34:00 EST, Route to Pharmacy Electronically, [facility], Partial fill upon patient request if the prescription is for a schedule I... Start Date: 11/16/22 Status: Ordered montelukast 10 mg oral tablet Refills 0, Maintenance, 01/06/23 18:05:00 EDT, Partial fill upon patient request if the prescription is for a schedule II opioid drug. Start Date: 01/06/23 Status: Ordered nystatin topical 081003 u/gm cream 1 application, Topically, 2 times a day, # 15 Gm, 0 Refills, Maintenance, 01/05/23 15:04:00 EDT, Cream, [facility], Partial fill upon patient request if the prescription is for a schedule II opioid drug., 1 application Topically 2 times a da... Start Date: 01/05/23 Status: Ordered nystatin topical [id number] u/gm cream 0 Refills, Maintenance, 01/06/23 18:05:00 [...] 11/16/22 10:34:00 EST, Route to Pharmacy Electronically, [facility], Partial fill upon patient request if [...] Maintenance,11/16/22 10:34:00 EST, Route to Pharmacy Electronically, [facility], Partial fill upon patient request if [...] Exam Date Time Procedure Performing Provider Status 01/25/23 8:[address] Cervical Spine W/O Contrast Taryn Vail; Ralph (Verified) Notes: (CT Cervical Spine W/O Contrast) Reason For Exam: Neck trauma, dangerous injury mechanism;Other: RESULT: CT Cervical Spine W/O Contrast CT Head/Brain W/O Contrast, CT Cervical Spine W/O Contrast INDICATION: Hx of Present Illness: pt reports dizziness x3 days, denies any exacerbating relieving factors. sts it has caused her to fall three times with +head strike on last fall, denies LOC, KONG, or blood thinner use. reports L knee and ankle pain.; Reason: Trauma; Clinical Question(s): Hematoma TECHNIQUE: Noncontrast head CT using axial technique was reconstructed in axial and coronal planes.Noncontrast spiral CT through the cervical spine was formatted in 3 planes. Automatic tube modulation was used for the cervical spine and iterative dose reconstruction was used for both the head and cervical spine to optimize scan parameters and image quality. COMPARISON: 02/17/2022 FINDINGS: Verification Rep View Findings, Lines and Tubes: None. BRAIN AND EXTRA-AXIAL SPACES: No parenchymal hemorrhage, midline shift, or mass effect. Noland-white matter differentiation is wellpreserved. No acute infarct. Ventricles, sulci, and basilar cisterns are normal. No white matter lesions. No subarachnoid hemorrhage. No subdural or epidural collection. CALVARIUM, SKULL BASE, AND SOFT TISSUES: No fractures or suspicious bony lesions. Moderate mucosal thickening of the paranasal sinuses. Visualized orbits and globes are intact. The extracranial soft tissues are unremarkable. CERVICAL SPINE: No fracture. No acute osseous abnormalities. Normal alignment. No locked or perched facet. Intervertebral disc spaces and vertebral body heightsare preserved. OTHER BONES: No acute abnormality. CERVICAL SOFT TISSUES AND LUNG APICES: Normal soft tissues. Visualized lung apices are clear. IMPRESSION: 1. No evidence of acute intracranial abnormality. 2. No evidence of acute fracture or dislocation of the cervical spine. WSN: [id number] Ordering Physician: Han Bolanos Dictated By: Donavon Botello MD Dictated Date/Time: 01/25/23 8:39 am Reviewed By: Donavon Botello MD Signed By: Donavon Botello MD Signed Date/Time: 01/25/23 8:39 am Transcribed By: DAVIS Transcribed Date/Time: 01/25/23 8:37 am * Exam Date Time Procedure Performing Provider Status 01/25/23 8:[address] Head/Brain W/O Contrast Taryn Briones; Auth (Verified) Notes: (CT Head/Brain W/O Contrast) Reason For Exam: Trauma RESULT: CT Head/Brain W/O Contrast CT Head/Brain W/O Contrast, CT Cervical Spine W/O Contrast INDICATION: Hx of Present Illness: pt reports dizziness x3 days, denies any exacerbating relieving factors. sts it has caused her to fall three times with +head strike on last fall, denies LOC, KONG, or blood thinner use. reports L knee and ankle pain.; Reason: Trauma; Clinical Question(s): Hematoma TECHNIQUE: Noncontrast head CT using axial technique was reconstructed in axial and coronal planes.Noncontrast spiral CT through the cervical spine was formatted in 3 planes. Automatic tube modulation was used for the cervical spine and iterative dose reconstruction was used for both the head and cervical spine to optimize scan parameters and image quality. COMPARISON: 02/17/2022 FINDINGS: Verification Rep View Findings, Lines and Tubes: None. BRAIN AND EXTRA-AXIAL SPACES: No parenchymal hemorrhage, midline shift, or mass effect. Noland-white matter differentiation is wellpreserved. No acute infarct. Ventricles, sulci, and basilar cisterns are normal. No white matter lesions. No subarachnoid hemorrhage. No subdural or epidural collection. CALVARIUM, SKULL BASE, AND SOFT TISSUES: No fractures or suspicious bony lesions. Moderate mucosal thickening of the paranasal sinuses. Visualized orbits and globes are intact. The extracranial soft tissues are unremarkable. CERVICAL SPINE: No fracture. No acute osseous abnormalities. Normal alignment. No locked or perched facet. Intervertebral disc spaces and vertebral body heightsare preserved. OTHER BONES: No acute abnormality. CERVICAL SOFT TISSUES AND LUNG APICES: Normal soft tissues. Visualized lung apices are clear. IMPRESSION: 1. No evidence of acute intracranial abnormality. 2. No evidence of acute fracture or dislocation of the cervical spine. WSN: [id number] Ordering Physician: Han Bolanos Dictated By: Donavon Botello MD Dictated Date/Time: 01/25/23 8:39 am Reviewed By: Donavon Botello MD Signed By: Donavon Botello MD Signed Date/Time: 01/25/23 8:39 am Transcribed By: DAVIS Transcribed Date/Time: 01/25/23 8:37 am * Exam Date Time Procedure Performing Provider Status 01/24/23 8:19 PM Knee 1 or 2 Views Left Rich Rothman; Auth (Verified) Notes: (Knee 1 or 2 Views Left) Reason For Exam: with Pain;Trauma RESULT: Knee 1 or 2 Views Left Knee 1 or 2 Views Left, 2 views Refer to EMR; Hx of Present Illness: pt reports dizziness x3 days, denies any exacerbating relieving factors. sts it has caused her to fall three times with +head strike on last fall, denies LOC, KONG,or blood thinner use. reports L knee and ankle pain.; Reason: Trauma; with Pain; Clinical Question(s): Fracture; Special Instructions: This is a protocol film and radiologist should call any findings COMPARISON: 10/14/2022. FINDINGS: There is no evidence of acute or healing fracture, dislocation or bone lesion. No arthritic changes. No osteochondral defects or intra-articular loose bodies. No evidence of joint effusion. IMPRESSION: Normal. WSN: [id number] Ordering Physician: Eileen Arredondo Dictated By: Darryl Kingsley MD Dictated Date/Time: 01/24/23 8:32 pm Reviewed By: Darryl Kingsley MD Signed By: Darryl Kingsley MD Signed Date/Time: 01/24/23 8:32 pm Transcribed By: DAVIS Transcribed Date/Time: 01/24/23 8:30 pm * Exam Date Time Procedure Performing Provider Status 01/24/23 8:19 PM Ankle Min 3 Views Left Rothman , Rich; Auth (Verified) Notes: (Ankle Min 3 Views Left) Reason For Exam: with Pain;Trauma RESULT: Ankle Min 3 Views Left Ankle Min 3 Views Left Refer to EMR; Hx of Present Illness: pt reports dizziness x3 days, denies any exacerbating relieving factors. sts it has caused her to fall three times with +head strike on last fall, denies LOC, KONG,or blood thinner use. reports L knee and ankle pain.; Reason: Trauma; with Pain; Clinical Question(s): Fracture; Special Instructions: This is a protocol film and radiologist should call any findings COMPARISON: 12/01/2017. FINDINGS: No evidence of acute or healing fracture or bone lesion. Intact ankle mortise and talar dome. No arthritic changes. Normal soft tissues. IMPRESSION: Normal. WSN: [id number] Ordering Physician: Eielen Arredondo Dictated By: Darryl Kingsley MD Dictated Date/Time: 01/24/23 8:30 pm Reviewed By: Darryl Kingsley MD Signed By: Darryl Kingsley MD Signed Date/Time: 01/24/23 8:30 pm Transcribed By: DAVIS Transcribed Date/Time: 01/24/23 8:27 pm Vital Signs Most recent to oldest [Reference Range]: 1 2 3 Height 165 cm (01/25/23 10:44 AM) 165 cm (01/25/23 9:00 AM) 165 cm (01/24/23 6:57 PM) Weight 100 kg (01/25/23 10:44 AM) 100 kg (01/25/23 9:00 AM) 100 kg (01/24/23 6:57 PM) Oxygen Saturation [94-100 %] 100 % (01/25/23 12:59 PM) 100 % (01/25/23 10:44 AM) 99 % (01/25/23 9:00 AM) Pulse Rate [55-90 bpm] 90 bpm (01/25/23 12:59 PM) 85 bpm (01/25/23 10:44 AM) 80 bpm (01/25/23 9:00 AM) Body Mass Index [18.5-24.99 kg/m2] 36.73 kg/m2 *>HHI* (01/25/23 10:44 AM) 36.73 kg/m2 *>HHI* (01/25/23 9:00 AM) 36.73 kg/m2 *>HHI* (01/24/23 6:52 PM) Blood Pressure [90-138/55-84 mm Hg] 134/80mm Hg (01/25/23 12:59 PM) 138/74mm Hg (01/25/23 10:44 AM) 123/71mm Hg (01/25/23 9:00 AM) Respiratory Rate [16-30 br/min] 18 br/min (01/25/23 12:59 PM) 16 br/min (01/25/23 10:44 AM) 16 br/min (01/25/23 9:00 AM) Temperature [96.8-100.4 DegF] 98.1 DegF (01/25/23 12:59 PM) 97.5 DegF (01/25/23 6:22 AM) 97.9 DegF (01/25/23 4:24 AM) Mode of Delivery (Oxygen) Room air (01/25/23 12:59 PM) Room air (01/25/23 6:22 AM) Room air (01/25/23 4:24 AM) Blood pressure sites Arm, left (01/25/23 12:59 PM) Arm, left (01/25/23 6:22 AM) Arm, left (01/25/23 4:24 AM) Temperature Route Oral (01/25/23 12:59 PM) Oral (01/25/23 6:22 AM) Oral (01/25/23 4:24 AM) Dry Weight 100 kg (01/25/23 10:44 AM) 100 kg (01/25/23 9:00 AM) 100 kg (01/24/23 6:57 PM) Weight Obtained Via Patient/family state d (01/24/23 6:52 PM) Dry Weight Obtained Via Patient/family s tated (01/24/23 6:52 PM) Social History Social History Type Response Smoking Status 10 or more cigarette s (1/2 pack or more)/day in last 30 days; Type: Cigarettes; Other: Reports smoking 1/2-1 packs/day, ending on level of stress; Started at age: 25; entered on: 11/18/22 Sex EKG study * Event Display: ECG 12-Lead Authored Date: [id number] Please click on pdf link to open report * Event Display: ECG 12-Lead Authored Date: Ventricular Rate: 79 BPM Atrial Rate: 79 BPM P-R Interval: 122 ms QRS Duration: 72 ms Q-T Interval: 376 ms QTC Calculation(Bazett): 431 ms P [place]: 60 degrees R [place]: 21 degrees T [place]: 26 degrees Normal sinus rhythm with sinus arrhythmia Possible Left atrial enlargement Borderline ECG When compared with ECG of 14-DEC-2022 21:55, T wave amplitude has increased in Lateral leads Confirmed by TAPAN CAN MD ([id number]) on 01/25/2023 8:00:33 AM [place]: TAPAN CAN MD Note * Han Bolanos MD: PERFORM Event Display: Patient Education Leaflets Authored Date: [id number] Bladder Infection,??Female (Adult) ?? [id number] Bladder Infection,??Female (Adult) Urine normally doesn't have any germs (bacteria) in it. But bacteria can get into the urinary tractfrom the skin around the rectum. Or they can travel in the blood from other parts of the body. Oncethey are in your urinary tract, they can cause infection in these areas: ??? The urethra (urethritis) ??? The bladder (cystitis) ??? The kidneys (pyelonephritis) The most common place for an infection is in the bladder. This is called a bladder infection. This is one of the most common infections in women because women have a shorter urethra than men. Bacteria have a shorter distance to travel to reach the bladder.. Women who have gone through menopause also lose the protection from estrogen that lowers the chance of getting a UTI. And some women are at higher risk because of their genes. Most bladder infections are easily treated. They are not serious unless the infection spreads to the kidney. The terms bladder infection, UTI, and cystitis are often used to describe the same thing. But they are not always the same. Cystitis is an inflammation of the bladder. The??most common cause of cystitis is an infection. Symptoms The infection causes inflammation in the urethra and bladder. This causes many of the symptoms. Themost common symptoms of a bladder infection are: ??? Pain or burning when urinating ??? Having to urinate more often than normal ??? Urgent need to urinate ??? Only a small amount of urine comes out ??? Blood in urine ??? Belly (abdominal) discomfort. This is often in the lower belly above the pubic bone. ??? Lower back pain ??? Cloudy urine ??? Strong- or bad-smelling urine ??? Unable to urinate(urinary retention) ??? Unable to hold urine in (urinary incontinence) ??? Fever ??? Loss of appetite ??? Confusion (in older adults) ?? Causes Bladder infections are not contagious. You can't get one from someone else, from a toilet seat, or from sharing a bath. The most common cause of bladder infections is bacteria from the bowels. The bacteria get onto the skin around the opening of the urethra. From there, they can get into the urine. Then they travel upto the bladder, causing inflammation and infection. This often happens because of: ??? Wiping incorrectly after urinating. Always wipe from front to back. ??? Bowel incontinence ??? . Duringpregnancy urinary tract changes raise the risk for infection. ??? Procedures such as having a catheter put in ??? Older age ??? Not emptying your bladder. This can give bacteria a chance to grow in your urine. ??? Fluid loss (dehydration) ??? Constipation ??? Having sex ??? Using a diaphragm for control? Treatment Bladder infections are diagnosed by a urine test and urine culture. They are treated with antibiotics. They often??clear up quickly without problems. Treatment helps prevent a more serious kidney infection. ?? Medicines Medicines can help in the treatment of a bladder infection: ??? Take antibiotics until they are used up, even if you feel better. It's important to finish them to make sure the infection has cleared.??? You can use acetaminophen or ibuprofen for pain, fever, or discomfort, unless another medicine was prescribed. If you have long-term (chronic) liver or kidney disease, talk with your healthcare??provider before using??these medicines. Also talk with your provider if you've ever had a stomach ulcer or GI (gastrointestinal) bleeding, or are taking blood-thinner medicines. ??? If you are given??phenazopydridine to reduce burning with urination, it will make your urine a bright orange color. This can stain clothing. ?? Care and prevention These self-care steps can help prevent future infections: ??? Drink plenty of fluids. This helps toprevent dehydration and flush out your bladder. Do this??unless you must restrict fluids for other health reasons, or your healthcare provider told you not to. ??? Clean yourself correctly after going to the bathroom. Wipe from front to back after using the toilet. This helps prevent the spread of bacteria. ??? Urinate more often. Don't try to hold urine in for a long time. ??? Wear loose-fittingclothes and cotton underwear. Don't wear tight- fitting pants. ??? Improve your diet and prevent constipation. Eat more fresh fruits and vegetables, and??fiber. Eat less junk foods and fatty foods. ??? Don't have sex until your symptoms are gone. ??? Don't have caffeine, alcohol, and spicy foods. These can irritate your bladder. ??? Urinate right after you have sex to flush out your bladder. ??? If you use control pills and have frequent bladder infections, discuss it with your healthcare provider. ?? Follow-up care Call your healthcare provider if all symptoms are not gone after 3 days of treatment. This is especially important if you have repeat infections. If a culture was done, you will be told if your treatment needs to be changed. If directed, you cancall??to find out the results. If X-rays were done, you will be told if the results will affect your??treatment. ?? Call 911 Call 911 if any of the following occur: ??? Trouble breathing ??? Hard to wake up or??confusion ???Fainting (loss of consciousness) ??? Fast heart rate ?? When to get medical advice Call your healthcare provider right away if any of these occur: ??? Fever of 100.4??F (38.0??C) or higher, or as directed by your healthcare provider ??? Symptoms are not better??after 3 days of treatment ??? Symptoms get worse or you have new symptoms ??? Back or belly pain that gets worse ??? Repeated vomiting, or unable to keep medicine down ??? Weakness or dizziness ??? Vaginal discharge ??? Pain, redness, or swelling in the outer vaginal area (labia) ?? Last Reviewed Date: 2021 ?? [employer]. All rights reserved. This information is not intended as a substitute for professional medical care. Always follow your healthcare professional's instructions. ?? * Han Bolanos MD: PERFORM Event Display: Patient Education Leaflets Authored Date: [id number] Soft Tissue Bruise (Contusion) ?? [id number] Soft Tissue Bruise (Contusion) You have a bruise (contusion). There is swelling and some bleeding under the skin. This injury??generally??takes a few days to a few weeks to heal. During that time, the bruise will typically change in color from??reddish, to purplish- blue, to greenish-yellow, then to yellowish-brown. Home care ??? Elevate the injured area to reduce pain and swelling.??As much as possible, sit or lie down with the injured area raised about the level of your heart.??This is especially important during the first 48 hours. ??? Ice the injured area to help reduce pain and swelling.??Wrap an ice packin a thin towel. Apply to the bruised area for 20 minutes every 1 to 2 hours the first day. Continue this 3 to 4 times a day until the pain and swelling goes away. You can make an ice pack by placingice cubes in a plastic bag, or by using a frozen bag of vegetables. ??? Unless another medicine wasprescribed, you can take acetaminophen, ibuprofen, or naproxen??to control pain. Talk with your [facility] provider before using these medicines if you have chronic liver or kidney disease or ever had a stomach ulcer or digestive bleeding. ?? Follow-up care Follow up with your healthcare provider, or as advised. Call if you are not better in 1 to 2 weeks. ?? When to seek medical advice?? Call your healthcare provider right away if any of the following occur: ??? Increased pain or swelling ??? Bruise is on an arm or leg, and arm or leg becomes cold, blue, numb, or tingly ??? Signs of infection:??Warmth, drainage, or increased redness or pain around the contusion ??? Inability to move the injured area or body part? Bruise is near your eye, and you have problems with your eyesight or eye? Frequent bruising for unknown reasons ?? Last Reviewed Date: 2022 ?? [id number] The [employer]. All rights reserved. This information is not intended as a substitute for professional medical care. Always follow your healthcare professional's instructions. ?? XR Ankle - left GE 3 Views * [facility] , CIS S: TRANSCRIBE Darryl Kingsley MD: VERIFY Event Display: Result: Authored Date: [id number] Ankle Min 3 Views Left Refer to EMR; Hx of Present Illness: pt reports dizziness x3 days, denies any exacerbating relieving factors. sts it has caused her to fall three times with +head strike on last fall, denies LOC, KONG,or blood thinner use. reports L knee and ankle pain.; Reason: Trauma; with Pain; Clinical Question(s): Fracture; Special Instructions: This is a protocol film and radiologist should call any findings COMPARISON: 12/01/2017. FINDINGS: No evidence of acute or healing fracture or bone lesion. Intact ankle mortise and talar dome. No arthritic changes. Normal soft tissues. IMPRESSION: Normal. WSN: [id number] Ordering Physician: Eileen Arredondo Dictated By: Darryl Kingsley MD Dictated Date/Time: 01/24/23 8:30 pm Reviewed By: Darryl Kingsley MD Signed By: Darryl Kingsley MD Signed Date/Time: 01/24/23 8:30 pm Transcribed By: DAVIS Transcribed Date/Time: 01/24/23 8:27 pm XR Knee - left 1 or 2 Views * Johnathon , CIS S: TRANSCRIDarryl Agarwal MD: VERIFY Event Display: Result: Authored Date: [id number] Knee 1 or 2 Views Left, 2 views Refer to EMR; Hx of Present Illness: pt reports dizziness x3 days, denies any exacerbating relieving factors. sts it has caused her to fall three times with +head strike on last fall, denies LOC, KONG,or blood thinner use. reports L knee and ankle pain.; Reason: Trauma; with Pain; Clinical Question(s): Fracture; Special Instructions: This is a protocol film and radiologist should call any findings COMPARISON: 10/14/2022. FINDINGS: There is no evidence of acute or healing fracture, dislocation or bone lesion. No arthritic changes. No osteochondral defects or intra-articular loose bodies. No evidence of joint effusion. IMPRESSION: Normal. WSN: [id number] Ordering Physician: Eileen Arredondo Dictated By: Darryl Kingsley MD Dictated Date/Time: 01/24/23 8:32 pm Reviewed By: Darryl Kingsley MD Signed By: Darryl Kingsley MD Signed Date/Time: 01/24/23 8:32 pm Transcribed By: DAVIS Transcribed Date/Time: 01/24/23 8:[address] Cervical spine WO contrast * [facility] , CIS S: TRANSCRIoDnavon Soto MD: VERIFY Event Display: Result: Authored Date: [id number] CT Head/Brain W/O Contrast, CT Cervical Spine W/O Contrast INDICATION: Hx of Present Illness: pt reports dizziness x3 days, denies any exacerbating relieving factors. sts it has caused her to fall three times with +head strike on last fall, denies LOC, KONG, or blood thinner use. reports L knee and ankle pain.; Reason: Trauma; Clinical Question(s): Hematoma TECHNIQUE: Noncontrast head CT using axial technique was reconstructed in axial and coronal planes.Noncontrast spiral CT through the cervical spine was formatted in 3 planes. Automatic tube modulation was used for the cervical spine and iterative dose reconstruction was used for both the head and cervical spine to optimize scan parameters and image quality. COMPARISON: 02/17/2022 FINDINGS: Verification Rep View Findings, Lines and Tubes: None. BRAIN AND EXTRA-AXIAL SPACES: No parenchymal hemorrhage, midline shift, or mass effect. Noland-white matter differentiation is wellpreserved. No acute infarct. Ventricles, sulci, and basilar cisterns are normal. No white matter lesions. No subarachnoid hemorrhage. No subdural or epidural collection. CALVARIUM, SKULL BASE, AND SOFT TISSUES: No fractures or suspicious bony lesions. Moderate mucosal thickening of the paranasal sinuses. Visualized orbits and globes are intact. The extracranial soft tissues are unremarkable. CERVICAL SPINE: No fracture. No acute osseous abnormalities. Normal alignment. No locked or perched facet. Intervertebral disc spaces and vertebral body heightsare preserved. OTHER BONES: No acute abnormality. CERVICAL SOFT TISSUES AND LUNG APICES: Normal soft tissues. Visualized lung apices are clear. IMPRESSION: 1. No evidence of acute intracranial abnormality. 2. No evidence of acute fracture or dislocation of the cervical spine. WSN: [id number] Ordering Physician: Han Bolanos Dictated By: Donavon Botello MD Dictated Date/Time: 01/25/23 8:39 am Reviewed By: Donavon Botello MD Signed By: Donavon Botello MD Signed Date/Time: 01/25/23 8:39 am Transcribed By: DAVIS Transcribed Date/Time: 01/25/23 8:[address] Head WO contrast * BHSPowerscribe , CIS S: TRANSCRIBE Donavon Botello MD: VERIFY Event Display: Result: Authored Date: [id number] CT Head/Brain W/O Contrast, CT Cervical Spine W/O Contrast INDICATION: Hx of Present Illness: pt reports dizziness x3 days, denies any exacerbating relieving factors. sts it has caused her to fall three times with +head strike on last fall, denies LOC, KONG, or blood thinner use. reports L knee and ankle pain.; Reason: Trauma; Clinical Question(s): Hematoma TECHNIQUE: Noncontrast head CT using axial technique was reconstructed in axial and coronal planes.Noncontrast spiral CT through the cervical spine was formatted in 3 planes. Automatic tube modulation was used for the cervical spine and iterative dose reconstruction was used for both the head and cervical spine to optimize scan parameters and image quality. COMPARISON: 02/17/2022 FINDINGS: Verification Rep View Findings, Lines and Tubes: None. BRAIN AND EXTRA-AXIAL SPACES: No parenchymal hemorrhage, midline shift, or mass effect. Noland-white matter differentiation is wellpreserved. No acute infarct. Ventricles, sulci, and basilar cisterns are normal. No white matter lesions. No subarachnoid hemorrhage. No subdural or epidural collection. CALVARIUM, SKULL BASE, AND SOFT TISSUES: No fractures or suspicious bony lesions. Moderate mucosal thickening of the paranasal sinuses. Visualized orbits and globes are intact. The extracranial soft tissues are unremarkable. CERVICAL SPINE: No fracture. No acute osseous abnormalities. Normal alignment. No locked or perched facet. Intervertebral disc spaces and vertebral body heightsare preserved. OTHER BONES: No acute abnormality. CERVICAL SOFT TISSUES AND LUNG APICES: Normal soft tissues. Visualized lung apices are clear. IMPRESSION: 1. No evidence of acute intracranial abnormality. 2. No evidence of acute fracture or dislocation of the cervical spine. WSN: [id number] Ordering Physician: Han Bolanos Dictated By: Donavon Botello MD Dictated Date/Time: 01/25/23 8:39 am Reviewed By: Donavon Botello MD Signed By: Donavon Botello MD Signed Date/Time: 01/25/23 8:39 am Transcribed By: DAVIS Transcribed Date/Time: 01/25/23 8:37 am Patient Care team information Care Team Personnel Name: Rudi Ruiz RN Position: [facility] ED RN W/OE and Tasks Member Role: Primary Care Nurse Name: Alicja Riggs RN Position: [facility] RN Member Role: Primary Care Nurse Name: Harmony Pagan Position: [facility] RN Member Role: Primary Care Nurse Name: Ros Fu RN Position: [facility] RN Member Role: Primary Care Nurse Name: Hilda Mccabe RN Position: [facility] RN Member Role: Primary Care Nurse Name: Rosana Kearney RN Position: [facility] SN RN Member Role: Primary Care Nurse Name: Wil Flood RN Position: [facility] RN Member Role: Primary Care Nurse Name: Gagandeep Sheldon RN Position: [facility] RN Member Role: Primary Care Nurse Name: Chip Morton Position: [facility] Outreach Member Role: Lifetime Consulting Physician Name: Alba Daily RN Position: [facility] RN Member Role: Primary Care Nurse Name: Maribel Marquez NP Position: [facility] PCO Associate Professional Member Role: PCP Address: Address: [address] [place] [id number]- [place] Name: Jose Ramirez RN Position: [facility] RN Member Role: Primary Care Nurse Name: Brittany Butts RN Position: [facility] AMB Nurse Member Role: Primary Care Nurse Name: Pauline Mcadams RN Position: [facility] RN Member Role: Primary Care Nurse Name: Mary Sánchez RN Position: [facility] RN Member Role: Primary Care Nurse Name: Shama Rosado RN Position: [facility] RN Member Role: Primary Care Nurse Name: Jackie Snyder RN Position: [facility] RN Member Role: Primary Care Nurse Name: Jay Burks NP Position: Reference Physician Member Role: Primary Care Nurse Address: Address: [address] [place] [address] [address] [facility] [place] [address]- [place] Name: Parvez Kaba MD Position: [facility] Renal MD Member Role: Lifetime Consulting Physician Address: Address: [address] [place] [address] [facility] [place] [address]- [place] Name: Yoana Ledezma RN Position: [facility] RN Member Role: Primary Care Nurse Name: Mirna Paul RN Position: [facility] OB RN Member Role: Primary Care Nurse Name: Latonya Rahman RN Position: [facility] Onco RN Member Role: Primary Care Nurse Name: Viki Gonzalez RN Position: [facility] RN Member Role: Primary Care Nurse Name: Claudia Presley RN Position: [facility] RN Member Role: Primary Care Nurse Name: Iris Villa RN Position: [facility] Hospital Semaphore Operator Member Role: Primary Care Nurse Name: Han Bolanos MD Position: [facility] ED Medicine MD Member Role: Admitting Physician Address: Address: [address] [place] [address]- [place] Name: Jay Soni RN Position: [facility] ED RN W/OE and Tasks Member Role: Patient Care Provider Care Team Related Persons Name: JO-ANN ROMANBRICK EXTRUDER OPERATORINDRA Address: [address] [place] [address] Name: SCIENTIFIC ARTISTGREGG Address: home [address] [place] [address] Name: SURRETTE, CARLOS Address: home [address] [place] [id number]
--- OUTSIDE RECORDS SUMMARY | 2023-07-16 14:52 | XMS_ITS | Continuity of Care Document ---
Author Name Unknown Organization [facility] Adult Address [address] [place] [address]- Care Team Providers Care A P Mechanic Name Role Phone Maribel Marquez NP Primary Care Physician Encounter [facility] [place] Date(s): 11/29/21 - 12/29/21 [facility] Adult [address] [place] [address]- Allergies, Adverse Reactions, Alerts Substance Reaction Severity [...] tablet, 0 Refills, Maintenance, 12/14/21 9:46:00 EST, [facility], Partial fill upon patient request if [...] 07/22/20 18:41:00 EDT, Route to Pharmacy Electronically, [facility], 163.5, cm, 07/22/20 18:29:00 EDT, Height, 102.5, kg, 07/18/20 21:04:00 EDT... Start Date: 07/22/20 Status: Ordered ferrous sulfate 325 mg oral enteric coated tablet 325 mg, 1, tablet, By Mouth, Daily, # 90 tablet, Refills 2, Tot. Refills 2, Maintenance, 04/11/21 9:22:00 EDT, Route to Pharmacy Electronically, [facility], Partial fill upon patient request if the prescription is for a schedule II opioid . Start Date: 04/11/21 Stop Date: 01/06/22 Status: Ordered Flovent HFA 110 mcg/inh inhalation aerosol 2 puffs, Inhalation, 2 times a day, # 12 Gm, 2 Refills, [facility], 165, cm, 12/19/21 10:41:00 EST, Height, [...] 05/09/21 8:43:00 EDT, Route to Pharmacy Electronically, [facility], 165, cm, 04/11/21 7:42:00 EDT, Height, [...] 04/11/21 9:38:00 EDT, Route to Pharmacy Electronically, [facility], Partial fill upon patient requestif the [...] each, 1 Refills, Maintenance, 05/09/21 8:43:00 EDT,Tablet, [facility], Partial fill upon patient request if [...] 05/09/21 8:45:00 EDT, Route to Pharmacy Electronically, [facility], 165, cm, 04/11/21 7:42:00 EDT, Height, [...] Start Date: 11/08/21 Status: Ordered nystatin topical 379133 u/gm cream 1 application, Topically, 2 times [...] Gm, 5 Refills, Acute, 05/10/21 11:59:00 EDT, [facility], 15, TAKE 17 GM BY MOUTH [...] 0 Refills, Maintenance, 02/09/20 10:05:00 EDT, Inhaler, [facility], 165, cm, 02/08/20 19:47:00 EDT, Height, 104.5, kg, 02/07/20 8:15:00 EDT, Dry Weight Start Date: 02/09/20 Stop Date: 03/10/20 Status: Ordered verapamil 240 mg/12 hours oral tablet, extended release 1 tablet = 240 mg, By Mouth, Daily at bedtime, # 90 tablet, 1 Refills, Maintenance, 05/09/21 8:45:00 EDT, SR Tablet, [facility], 165, cm, 04/11/21 7:42:00 EDT, Height, [...]
--- OUTSIDE RECORDS SUMMARY | 2023-07-16 14:52 | XMS_ITS | Continuity of Care Document ---
Author Name Unknown Organization [facility] Adult Address [address] [place] [address]- Care Team Providers Care Preparing Box Tender Name Role Phone Maribel Marquez NP Primary Care Physician [phone] Encounter [facility] [place] Date(s): 12/12/21 - 03/23/22 [facility] Adult [address] [place] [address]- Attending Physician: Justin Mathews MD Allergies, Adverse [...] tablet, 0 Refills, Maintenance, 01/04/22 11:12:00 EDT, [facility], Partial fill upon patient request if [...] 04/11/21 9:22:00 EDT, Route to Pharmacy Electronically, [facility], Partial fill upon patient request if the prescription is for a schedule II opioid . Start Date: 04/11/21 Stop Date: 01/06/22 Status: Ordered Flovent HFA 110 mcg/inh inhalation aerosol 2 puffs, Inhalation, 2 times a day, # 12 Gm, 2 Refills, [facility], 165, cm, 12/19/21 10:41:00 EST, Height, [...] 04/04/22 12:34:00 EDT, 01/04/22 12:34:00 EDT, Tablet, [facility], Partial fill upon patient request if the prescription is f... Start Date: 01/04/22 Stop Date: 04/04/22 Status: Ordered metFORMIN 500 mg oral tablet See Instructions, TAKE 1 EACH BY MOUTH 2 TIMES A DAY, # 60 tablet, 5 Refills, [facility],165, cm, 01/19/22 13:55:00 EDT, Height, 103, [...] 01/04/22 11:12:00 EDT, Route to Pharmacy Electronically, [facility], 165, cm, 12/19/21 10:41:00 EST, Height, [...] 01/19/22 10:48:00 EDT, Route to Pharmacy Electronically, [facility], Partial fill upon patient request if [...] Refills, Maintenance, 05/09/21 8:45:00 EDT, SR Tablet, [facility], 165, cm, 04/11/21 7:42:00 EDT, Height, [...]
--- OUTSIDE RECORDS SUMMARY | 2023-07-16 14:52 | XMS_ITS | Continuity of Care Document ---
Author Name Unknown Organization [facility] ter Address [address] [place] [address]- Care Team Providers Care Staff Development Educator Name Role Phone Michelle Norris MD Primary Care Physician [phone] Encounter [facility] [place] Date(s): 07/09/20 - 07/10/[address] [address]- [facility] Encounter Diagnosis Depression(Final) - 07/09/20 Discharge Disposition: A-D/C Home Attending Physician: Pia [...] 0 Refills, Maintenance, 02/09/20 10:07:00 EDT, Tablet, [facility], 165, cm, 02/08/20 19:47:00 EDT, Height, 104.5, kg, 02/07/20 8:15:00 EDT, Dry Weight Start Date: 02/09/20 Status: Ordered chlorproMAZINE 25 mg oral tablet = 25 mg, By Mouth, 3 times a day, PRN Agitation Anxiety, # 90 tablet, 0 Refills, Maintenance, 02/09/20 10:08:00 EDT, Tablet, [facility], 165, cm, 02/08/20 19:47:00 EDT, Height, 104.5, kg,02/07/20 8:15:00 EDT, Dry Weight Start Date: 02/09/20 Status: Ordered Claritin 10 mg oral tablet 10 mg, 1, tablet, By Mouth, Daily, # 30 tablet, Refills 0, Tot. Refills 0, Maintenance, 02/09/20 10:10:00 EDT, Route to Pharmacy Electronically, [facility], 165, cm, 02/08/20 19:47:00 EDT, Height, 104.5, kg, 02/07/20 8:15:00 EDT, Dry Weight Start Date: 02/09/20 Status: Ordered Colace sodium 100 mg oral capsule 100 mg, 1, capsule, By Mouth, 2 times a day, PRN, # 60 capsule, Refills 0, Tot. Refills 0, Maintenance, Constipation, 02/09/20 10:08:00 EDT, Route to Pharmacy Electronically, [facility], 165, cm, 02/08/20 19:47:00 EDT, Height, 104.5, kg, ... Start Date: 02/09/20 Status: Ordered Flonase 50 mcg/inh nasal spray 1 sprays = 50 mcg, Nares, Both, 2 times a day, # 16 Gm, 0 Refills, Maintenance, 02/09/20 10:09:00 EDT, Nasal [place], [facility], 1 sprays Nares, Both 2 times a day,x30 days, 165, cm, 02/08/20 19:47:00 EDT, Height, 104.5, kg, 02/07/20 8:15:00... Start Date: 02/09/20 Stop Date: 03/10/20 Status: Ordered Flovent HFA 110 mcg/inh inhalation aerosol 2 puffs = 220 mcg, Inhalation, 2 times a day, # 1 each, 0 Refills, Maintenance, 02/09/20 10:06:00 EDT, Aerosol, [facility], 165, cm, 02/08/20 19:47:00 EDT, Height, 104.5, kg, 02/07/20 8:15:00 EDT, Dry Weight Start Date: 02/09/20 Status: Ordered lisinopril 5 mg oral tablet 5 mg, 1, tablet, By Mouth, Daily, # 30 tablet, Refills 0, Tot. Refills 0, Maintenance, 02/09/20 10:10:00 EDT, Route to Pharmacy Electronically, [facility], 165, cm, 02/08/20 19:47:00 EDT, Height, 104.5, kg, 02/07/20 8:15:00 EDT, Dry Weight Start Date: 02/09/20 Status: Ordered montelukast 10 mg oral tablet 10 mg, 1, tablet, By Mouth, Daily, # 30 tablet, Refills 0, Tot. Refills 0, Maintenance, 02/09/20 10:11:00 EDT, Route to Pharmacy Electronically, [facility], 165, cm, 02/08/20 19:47:00 EDT, Height, 104.5, kg, 02/07/20 8:15:00 EDT, Dry Weight Start Date: 02/09/20 Status: Ordered norethindrone 0.35 mg oral tablet 1 tablet = 0.35 mg, By Mouth, Daily, # 30 tablet, 0 Refills, Maintenance, 02/09/20 10:07:00 EDT, Tablet, [facility], 165, cm, 02/08/20 19:47:00 EDT, [...] 9:00:00 EDT, 02/09/20 10:22:00 EDT, REC Powder, [facility], 17 Gm By Mouth Daily,Instr:dissolve in water before taking, 165, cm, 02/08/20 19:47:00... Start Date: 02/09/20 Stop Date: 02/08/21 Status: Ordered prazosin 2 mg oral capsule 2 capsule = 4 mg, By Mouth, Daily at bedtime, # 60 capsule, 1 Refills, Maintenance, 02/09/20 10:12:00 EDT, [facility], 165, cm, 02/08/20 19:47:00 EDT, Height, 104.5, kg, 02/07/20 8:15:00 EDT, Dry Weight Start Date: 02/09/20 Stop Date: 03/08/20 Status: Ordered traZODone 150 mg oral tablet 1 tablet = 150 mg, By Mouth, Daily at bedtime, for sleep, # 30 tablet, 1 Refills, Maintenance, 02/09/20 10:13:00 EDT, Tablet, [facility], 165, cm, 02/08/20 19:47:00 EDT, Height, 104.5, kg, 02/07/20 8:15:00 EDT, Dry Weight Start Date: 02/09/20 Status: Ordered Trileptal 150 mg oral tablet 150 mg, 1, tablet, By Mouth, Daily at bedtime, # 30 tablet, Refills 0, Tot. Refills 0, Maintenance,02/09/20 10:12:00 EDT, Route to Pharmacy Electronically, [facility], 165, cm, 02/08/20 19:47:00 EDT, Height, 104.5, kg, 02/07/20 8:15:00 EDT,... Start Date: 02/09/20 Status: Ordered Trileptal 300 mg oral tablet 300 mg, 1, tablet, By Mouth, Daily at bedtime, # 30 tablet, Refills 0, Tot. Refills 0, Maintenance,02/09/20 10:18:00 EDT, Route to Pharmacy Electronically, [facility], 165, cm, 02/08/20 19:47:00 EDT, Height, 104.5, kg, 02/07/20 8:15:00 EDT,... Start Date: 02/09/20 Status: Ordered Ventolin HFA 108 mcg/inh inhalation aerosol with adapter 2 puffs = 180 mcg, Inhalation, 4 times a day, PRN for wheezing, # 1 each, 0 Refills, Maintenance, 02/09/20 10:05:00 EDT, Inhaler, [facility], 165, cm, 02/08/20 19:47:00 EDT, Height, 104.5, kg, 02/07/20 8:15:00 EDT, Dry Weight Start Date: 02/09/20 Stop Date: 03/10/20 Status: Ordered verapamil 240 mg/12 hours oral tablet, extended release 1 tablet = 240 mg, By Mouth, Daily at bedtime, # 30 tablet, 0 Refills, Maintenance, 02/09/20 10:14:00 EDT, SR Tablet, [facility], 165, cm, 02/08/20 19:47:00 EDT, [...] 1 2 3 Oxygen Saturation [94-100 %] 93 % *L* (07/10/20 6:30 AM) 100 % (07/09/20 6:59 PM) Pulse Rate [55-90 bpm] 72 bpm (07/10/20 6:30 AM) 97 bpm *H* (07/09/20 6:59 PM) Blood Pressure [90-138/55-84 mm Hg] 136/81mm Hg (07/10/20 9:37 AM) 127/66mm Hg (07/10/20 6:30 AM) 118/72mm Hg (07/09/20 8:55 PM) Respiratory Rate [16-30 br/min] 16 br/min (07/10/20 6:30 AM) 16 br/min (07/09/20 6:59 PM) Temperature [96.8-100.4 DegF] 98.5 DegF (07/10/20 6:30 AM) 98.6 DegF (07/09/20 6:59 PM) Mode of Delivery (Oxygen) Room air (07/10/20 6:30 AM) Room air (07/09/20 6:59 PM) Blood pressure sites Arm, right (07/10/20 6:30 AM) Arm, right (07/09/20 6:59 PM) Temperature Route Oral (07/10/20 6:30 AM) Oral (07/09/20 6:59 PM) Social History Social History Type Response Smoking Status 10 or more cigarette s (1/2 pack or more)/day in last 30 days; Use: smokes 1 pack a day entered on: 05/10/19 Sex
--- OUTSIDE RECORDS SUMMARY | 2023-07-16 14:53 | XMS_ITS | Continuity of Care Document ---
Author Name Unknown Organization [facility] ter Address [address] [place] [id number]- Care Team Providers Care Door Operator Name Role Phone Maribel Marquez NP Primary Care Physician Encounter [facility] [place] Date(s): 12/09/22 - 12/09/[address] [address]- Encounter Diagnosis Hallucinations(Final) - 12/09/22 Discharge Disposition: A-D/C Home Attending Physician: Pia Patten MD Admitting Physician: Pia Patten MD Referring Physician: Not on Staff, Referring MD Allergies, Adverse Reactions, Alerts Substance Reaction Severity Status codeine Active lithium 1 Active predniSONE Active Macrobid Active penicillin Active sulfa drugs Active Zithromax Active Seafood [...] 10:33:00 EST, Inhaler, Route to Pharmacy Electronically, NCPDP_[id number], [facility], 163, cm, 11/16/22 9:43:00 EST, Height, 97.3,... Start Date: 11/16/22 Status: Ordered atorvastatin 10 mg oral tablet 1 tablet = 10 mg, By Mouth, Daily at bedtime, # 30 tablet, 0 Refills, Maintenance, 11/16/22 10:33:00 EST, Tablet, [facility], Partial fill upon patient request if the prescription is for a schedule II opioid drug., 163, cm, 11/16/22 9:43:00... Start Date: 11/16/22 Status: Ordered benztropine 1 mg oral tablet 1 mg, 1, tablet, By Mouth, 2 times a day, # 60 tablet, Refills 0, Tot. Refills 0, Maintenance, 11/16/22 10:33:00 EST, Route to Pharmacy Electronically, [facility], Partial fill upon patientrequest if the prescription is for a schedule II op... Start Date: 11/16/22 Status: Ordered chlorproMAZINE 50 mg oral tablet 1 tablet = 50 mg, By Mouth, 3 times a day, PRN Anxiety, # 90 tablet, 0 Refills, Maintenance, 11/16/22 10:33:00 EST, Tablet, [facility], Partial fill upon [...] Electronically, [facility], Partial fill upon patientrequest if the [...] 0 Refills, Maintenance, 11/16/22 10:34:00 EST, Tablet, [facility], Partial fill upon patient request if the prescription is for a schedule II opioid drug., 163, cm, 11/16/22 9:43:00 EST,... Start Date: 11/16/22 Status: Ordered mirtazapine 15 mg oral tablet 0.5 tablet = 7.5 mg, By Mouth, Daily at bedtime, # 15 tablet, 0 Refills, Maintenance, 11/16/22 10:34:00 EST, Tablet, [facility], Partial fill upon [...] 11/16/22 10:34:00 EST, Route to Pharmacy Electronically, [facility], Partial fill upon patient request if the prescription is for a schedule... Start Date: 11/16/22 Status: Ordered traZODone 50 mg oral tablet 150 mg, 3, tablet, By Mouth, Daily at bedtime, # 90 tablet, Refills 0, Tot. Refills 0, Maintenance,11/16/22 10:34:00 EST, Route to Pharmacy Electronically, [facility], Partial fill upon patient request if [...] Range]: 1 2 Oxygen Saturation [94-100 %] 97 % (12/09/22 4:17 PM) 97 % (12/09/22 1:49 PM) Pulse Rate [55-90 bpm] 100 bpm *H* (12/09/22 4:17 PM) 106 bpm *H* (12/09/22 1:49 PM) Blood Pressure [90-138/55-84 mm Hg] 129/ 84mm Hg (12/09/22 4:17 PM) 98/57mm Hg (12/09/22 1:49 PM) Respiratory Rate [16-30 br/min] 18 br/mi n (12/09/22 4:17 PM) 18 br/min (12/09/22 1:49 PM) Temperature [96.8-100.4 DegF] 98.6 DegF (12/09/22 1:49 PM) Mode of Delivery (Oxygen) Room air (12/09/22 4:17 PM) Room air (12/09/22 1:49 PM) Social History Social History Type Response [...] Primary Care Nurse Name: Harmony Pagan Position: [facility] RN Member Role: Primary Care Nurse Name: Ros Fu RN Position: [facility] RN Member Role: Primary Care Nurse Name: Hilda Mccabe RN Position: [facility] RN Member Role: Primary Care Nurse Name: Rosana Kearney RN Position: [facility] AMB Nurse Member Role: Primary Care Nurse Name: Wil Flood RN Position: [facility] RN Member Role: Primary Care Nurse Name: Gagandeep Sheldon RN Position: [facility] RN Member Role: Primary Care Nurse Name: Chip Morton Position: [facility] Outreach Member Role: Lifetime Consulting Physician Name: Alba Daily RN Position: [facility] RN Member Role: Primary Care Nurse Name: Maribel Marquez NP Position: [facility] PCO Associate Professional Member Role: PCP Address: Address: [address] [place] [address] Name: Jose Ramirez RN [facility] Role: Primary Care Nurse Address: Address: [address] [facility] [address] Clinical & [place] [address]- [place] Name: Parvez Kaba MD Position: [facility] Renal MD Member Role: Lifetime Consulting Physician Address: Address: [address] [place] [address] [facility] [place] [address]- Name: Yoana Ledezma RN Position: [facility] RN Member Role: Primary Care Nurse Name: Mirna Paul [facility] Villa RN Position: [facility] Hospital Leaflet Or Newspaper Deliverer Member Role: Primary Care Nurse Name: Director Yue LE Position: [facility] Resident Member Role: ED Resident Address: Address: [address] [place] [address]- Name: Shelly Clayton RN Position: [facility] ED RN W/OE and Tasks Member Role: Patient Care Provider Name: Brittany Blankenship Position: [facility] ED TA [facility] Member Role: Final Inspection Supervisor Name: Pia Patten MD Position: [facility] ED Medicine MD Member Role: Admitting Physician Address: Address: [address] [place] [address]- Care Team Related Persons Name: JO-ANN ROMANMAINTENANCE PLUMBERINDRA Address: [address] [place] [address] Name: BROOD HATCHERY MANAGERGREGG Address: home [address] [place] [address] Name: CARLOS PAZ Address: home [address] [place] [address]
--- OUTSIDE RECORDS SUMMARY | 2023-07-16 14:53 | XMS_ITS | Continuity of Care Document ---
Author Name Unknown Organization [facility] ter Address [address] [place] [id number]- Care Team Providers Care Speaker Mounter Name Role Phone Maribel Marquez NP Primary Care Physician [phone] Encounter [facility] Date(s): 08/23/22 - 08/23/[address] [address]- Discharge Disposition: A-D/C Home Attending Physician: Robby Cartagena MD Admitting Physician: Robby Cartagena MD Referring Physician: Not on Staff, [...] tablet, 1 Refills, Maintenance, 07/24/22 15:17:00 EDT, [facility], 165.2, cm, 07/19/22 10:30:00 EDT, Height, [...] a day, # 12 Gm, 1 Refills, [facility], 162, cm, 03/20/22 19:50:00 EDT, Height, [...] 60 tablet, 5 Refills, 08/07/22 10:55:00 EDT, [facility], 165.2, cm, 07/19/22 10:30:00 EDT, Height, [...] 01/04/22 11:12:00 EDT, Route to Pharmacy Electronically, [facility], 165, cm, 12/19/21 10:41:00 EST, Height, 103, kg, 11/26/21 8:59:00 EST, . Start Date: 01/04/22 Status: Ordered Nicoderm C-Q Clear 21 mg/24 hr transdermal film, extended release 1 patch, Topically, Daily, for 6 week(s), # 42 patch, 0 Refills, Acute 08/30/22 11:56:00 EST, 07/19/22 11:56:00 EDT, Patch, [facility], Partial fill upon patient request if [...] 1 Refills, Maintenance, 06/23/22 16:17:00 EDT, Aerosol, [facility], Partial fill upon patient request if [...] 07/28/22 7:45:00 EDT, Route to Pharmacy Electronically, [facility], 165.2, cm, 07/19/22 10:30:00 EDT, Height, [...] Refills, Maintenance, 05/09/21 8:45:00 EDT, SR Tablet, [facility], 165, cm, 04/11/21 7:42:00 EDT, Height, [...] 3 Oxygen Saturation [94-100 %] 96 % (08/23/22 8:02 PM) 97 % (08/23/22 4:00 PM) 95 % (08/23/22 2:52 PM) Pulse Rate [55-90 bpm] 89 bpm (08/23/22 8:02 PM) 90 bpm (08/23/22 4:00 PM) 86 bpm (08/23/22 2:52 PM) Blood Pressure [90-138/55-84 mm Hg] 136/78mm Hg (08/23/22 8:02 PM) 122/84mm Hg (08/23/22 4:00 PM) 126/87mm Hg (08/23/22 2:52 PM) Respiratory Rate [16-30 br/min] 18 br/min (08/23/22 8:02 PM) 18 br/min (08/23/22 4:00 PM) 18 br/min (08/23/22 2:52 PM) Temperature [96.8-100.4 DegF] 98.5 DegF (08/23/22 8:02 PM) 98.3 DegF (08/23/22 4:00 PM) 98.9 DegF (08/23/22 2:52 PM) Liters per Minute 0 L/min (08/23/22 2:52 PM) Mode of Delivery (Oxygen) Room air (08/23/22 8:02 PM) Room air (08/23/22 4:00 PM) Room air (08/23/22 2:52 PM) Temperature Route Oral (08/23/22 8:02 PM) Oral (08/23/22 4:00 PM) Oral (08/23/22 2:52 PM) Social History Social History Type Response Smoking Status 10 or more cigarette s (1/2 pack or more)/day in last 30 days; Other: 1PPD; entered on: 07/19/22 Sex Patient Care team information Care Team Personnel Name: Rudi Ruiz RN Position: [facility] ED RN W/OE and Tasks Member Role: Primary Care Nurse Name: Alicja Riggs RN Position: [facility] RN Member Role: Primary Care Nurse Name: Ros Fu RN Position: [facility] RN Member Role: Primary Care Nurse Name: Hilda Mccabe RN Position: [facility] RN Member Role: Primary Care Nurse Name: Rosana Kearney RN Position: [facility] AMB Nurse Member Role: Primary Care Nurse Name: Wil Flood RN Position: [facility] RN Member Role: Primary Care Nurse Name: Gagandeep Sheldon RN Position: [facility] RN Member Role: Primary Care Nurse Name: Chip Morton Position: [facility] Outreach Member Role: Lifetime Consulting Physician Name: Alba Daily RN Position: [facility] RN Member Role: Primary Care Nurse Name: Maribel Marquez NP Position: [facility] PCO Associate Professional Member Role: PCP Address: Address: [address] [place] [address]- Name: Jose Ramirez RN Position: [facility] RN Member Role: Primary Care Nurse Name: Brittany Butts RN Position: [facility] AMB Nurse Member Role: Primary Care Nurse Name: Mary Sánchez RN Position: [facility] RN Member Role: Primary Care Nurse Name: Shama Rosado RN Position: [facility] RN Member Role: Primary Care Nurse Name: Jackie Snyder RN Position: [facility] RN Member Role: Primary Care Nurse Name: Jay Burks NP Position: Reference Physician Member Role: Primary Care Nurse Address: Address: [address] [place], [place] [id number] Clinical & [place] [address]- [place] Name: Parvez Kaba MD Position: [facility] Renal MD Member Role: Lifetime Consulting Physician Address: Address: [address] [place] [address] [facility] [place] [address]- [place] Name: Yoana Ledezma RN Position: [facility] RN Member Role: Primary Care Nurse Name: Mirna Paul RN Position: [facility] OB RN Member Role: Primary Care Nurse Name: Latonya Rahman RN Position: [facility] Onco RN Member Role: Primary Care Nurse Name: Claudia Presley RN Position: [facility] RN Member Role: Primary Care Nurse Name: Iris Villa RN Position: [facility] Hospital Summer Camp Counselor Member Role: Primary Care Nurse Name: Zuleima Chappell Position: [facility] ED TA [facility] Name: Karena Du RN Position: [facility] ED RN W/OE and Tasks Member Role: Patient Care Provider Name: Gino Tai MD Position: [facility] Resident Member Role: ED Resident Address: Address: [address] [place] [address]- Name: Robby Cartagena MD Position: [facility] ED Medicine MD Member Role: Admitting Physician Address: Address: [address] [place] [address]- Care Team Related Persons Name: LISBETH- MULTIPLEX OPERATORINDRA Address: [address] [place] [address] Name: KNITTED GARMENT FINISHERGREGG Address: [address] [place] [address] Name: CARLOS PAZ Address: home [address] [place] [address]
--- OUTSIDE RECORDS SUMMARY | 2023-07-16 14:53 | XMS_ITS | Continuity of Care Document ---
Author Name Unknown Organization [facility] ter Address [address] [place] [address]- Care Team Providers Care Fountain Pen Turner Name Role Phone Maribel Marquez NP Primary Care Physician [place] [facility] [place] Date(s): 02/18/23 - 02/19/[address] [address]- Discharge Disposition: A-D/C Home Attending Physician: Shama [...] 10:33:00 EST, Inhaler, Route to Pharmacy Electronically, NCPDP_[id number], [facility], 163, cm, 11/16/22 9:43:00 EST, Height, 97.3,... Start Date: 11/16/22 Status: Ordered atorvastatin 10 mg oral tablet 1 tablet = 10 mg, By Mouth, Daily at bedtime, # 30 tablet, 0 Refills, Maintenance, 11/16/22 10:33:00 EST, Tablet, [facility], Partial fill upon patient request if [...] 11/16/22 10:33:00 EST, Route to Pharmacy Electronically, [facility], Partial fill upon patientrequest if the [...] 0 Refills, Maintenance, 11/16/22 10:33:00 EST, Tablet, [facility], Partial fill upon patient request if [...] 11/16/22 10:34:00 EST, Route to Pharmacy Electronically, [facility], Partial fill upon patient request if the prescription is for a schedule II opioid d... Start Date: 11/16/22 Stop Date: 08/13/23 Status: Ordered FLUoxetine 20 mg oral capsule 80 mg, 4, capsule, By Mouth, Daily in AM, # 120 capsule, Refills 0, Tot. Refills 0, Maintenance, 11/16/22 10:34:00 EST, Route to Pharmacy Electronically, [facility], Partial fill upon patient request if [...] 11/16/22 10:34:00 EST, Route to Pharmacy Electronically, [facility], Partial fill upon patientrequest if the [...] 0 Refills, Maintenance, 11/16/22 10:34:00 EST, Tablet, [facility], Partial fill upon patient request if [...] 0 Refills, Maintenance, 11/16/22 10:34:00 EST, Tablet, [facility], Partial fill upon patient request if [...] Start Date: 01/06/23 Status: Ordered nystatin topical [id number] u/gm cream 1 application, Topically, 2 times a day, # 15 Gm, 0 Refills, Maintenance, 01/05/23 15:04:00 EDT, Cream, [facility], Partial fill upon patient request if the prescription is for a schedule II opioid drug., 1 application Topically 2 times a da... Start Date: 01/05/23 Status: Ordered nystatin topical [id number] u/gm cream 0 Refills, Maintenance, 01/06/23 18:05:00 [...] 11/16/22 10:34:00 EST, Route to Pharmacy Electronically, [facility], Partial fill upon patient request if [...] Maintenance,11/16/22 10:34:00 EST, Route to Pharmacy Electronically, [facility], Partial fill upon patient request if [...] 2 Oxygen Saturation [94-100 %] 98 % (02/19/23 12:51 AM) 98 % (02/18/23 8:31 PM) Pulse Rate [55-90 bpm] 80 bpm (02/19/23 12:51 AM) 99 bpm *H* (02/18/23 8:31 PM) Blood Pressure [90-138/55-84 mm Hg] 130/ 88mm Hg (02/19/23 12:51 AM) 131/114mm Hg (02/18/23 8:31 PM) Respiratory Rate [16-30 br/min] 17 br/mi n (02/19/23 12:51 AM) 20 br/min (02/18/23 8:31 PM) Temperature [96.8-100.4 DegF] 98.2 DegF (02/19/23 12:51 AM) 98.3 DegF (02/18/23 8:31 PM) Mode of Delivery (Oxygen) Room air (02/19/23 12:51 AM) Room air (02/18/23 8:31 PM) Temperature Route Oral (02/19/23 12:51 AM) Oral (02/18/23 8:31 PM) Social History Social History Type Response Smoking Status 10 or more cigarette s (1/2 pack or more)/day in last 30 days; Type: Cigarettes; Other: Reports smoking 1/2-1 packs/day, ending on level of stress; Started at age: 25; entered on: 11/18/22 Sex Patient Care team information Care Team Personnel Name: Rudi Ruiz RN Position: S ED RN W/OE and Tasks Member Role: Primary Care Nurse Name: Alicja Riggs RN Position: [facility] RN Member Role: Primary Care Nurse Name: Ros Fu RN Position: [facility] RN Member Role: Primary Care Nurse Name: Hilda Mccabe RN Position: [facility] RN Member Role: Primary Care Nurse Name: Rosana Kearney RN Position: [facility] SN RN Member Role: Primary Care Nurse Name: Wil Flood RN Position: [facility] RN Member Role: Primary Care Nurse Name: Gagandeep Sheldon RN Position: [facility] RN Member Role: Primary Care Nurse Name: Chip Morton Position: [facility] Outreach Member Role: Lifetime Consulting Physician Name: Alba Daily RN Position: [facility] RN Member Role: Primary Care Nurse Name: Maribel Marquez NP Position: [facility] PCO Associate Professional Member Role: PCP Address: Address: [address] [place] [address]- Name: Jose Ramirez RN Position: [facility] RN Member Role: Primary Care Nurse Name: Brittany Butts RN Position: [facility] AMB Nurse Member Role: Primary Care Nurse Name: Pauline Mcadams RN Position: [facility] RN Member Role: Primary Care Nurse Name: Mary Sánchez RN Position: [facility] RN Member Role: Primary Care Nurse Name: Shama Rosado RN Position: [facility] RN Member Role: Primary Care Nurse Name: Jackie Snyder RN Position: [facility] RN Member Role: Primary Care Nurse Name: Jay Burks NP Position: Reference Physician Member Role: Primary Care Nurse Address: Address: [address] [place], [place] [id number] Clinical & [place] [address]- [place] Name: Parvez Kaba MD Position: [facility] Renal MD Member Role: Lifetime Consulting Physician Address: Address: [address] [place] [address] [facility] [place] [address]- [place] Name: Mirna Paul RN Position: [facility] OB RN Member Role: Primary Care Nurse Name: Latonya Rahman RN Position: [facility] Onco RN Member Role: Primary Care Nurse Name: Viki Gonzalez RN Position: [facility] RN Member Role: Primary Care Nurse Name: Claudia Presley RN Position: [facility] RN Member Role: Primary Care Nurse Name: Iris Villa RN Position: [facility] Hospital Board Winder Member Role: Primary Care Nurse Name: *[facility], ED Attending Position: [facility] ED Attendings Patient Name: Salma Rao RN Position: [facility] ED RN W/OE and Tasks Member Role: Patient Care Provider Name: Shama Baugh DO Position: [facility] ED Medicine MD Member Role: ED Attending Physician Address: Address: [address] [place] [address]- Care Team Related Persons Name: JO-ANN ROMANPERINATAL TECHNICIANINDRA Address: [address] [place] [address] Name: STUDENT DRIVING INSTRUCTORGREGG Address: [address] [place] [address] Name: CARLOS PAZ Address: [address] [place] [address]
--- OUTSIDE RECORDS SUMMARY | 2023-07-16 14:53 | XMS_ITS | Continuity of Care Document ---
Author Name Unknown Organization [facility] ter Address [address] [place] [address]- Care Team Providers Care Mold Designer Name Role Phone Maribel Marquez NP Primary Care Physician Encounter [facility] [place] Date(s): 03/28/23 - 03/28/[address] [address]- Encounter Diagnosis Deliberate self-cutting(Final) - 03/28/23 Discharge Disposition: A-D/C Home Attending Physician: Yony Echevarria MD Admitting Physician: Yony Echevarria MD Referring Physician: Not on Staff, Referring MD Allergies, Adverse Reactions, Alerts Substance Reaction Severity Status codeine Active lithium 1 Active predniSONE Active Zithromax Active penicillin Active sulfa drugs Active Macrobid Active Seafood [...] 10:33:00 EST, Inhaler, Route to Pharmacy Electronically, NCPDP_[id number], [facility], 163, cm, 11/16/22 9:43:00 EST, Height, 97.3,... Start Date: 11/16/22 Status: Ordered atorvastatin 10 mg oral tablet 1 tablet = 10 mg, By Mouth, Daily at bedtime, # 30 tablet, 0 Refills, Maintenance, 11/16/22 10:33:00 EST, Tablet, [facility], Partial fill upon patient request if [...] 0 Refills, Maintenance, 11/16/22 10:33:00 EST, Tablet, [facility], Partial fill upon patient request if [...] 11/16/22 10:34:00 EST, Route to Pharmacy Electronically, [facility], Partial fill upon patient request if [...] 60 tablet, 1 Refills, Maintenance,02/22/23 10:08:00 EDT, [facility], 146, cm, 02/05/23 20:22:00 EDT, Height, [...] 0 Refills, Maintenance, 11/16/22 10:34:00 EST, Tablet, [facility], Partial fill upon patient request if [...] Start Date: 01/06/23 Status: Ordered nystatin topical [id number] u/gm cream 1 application, Topically, 2 times a day, # 15 Gm, 0 Refills, Maintenance, 01/05/23 15:04:00 EDT, Cream, [facility], Partial fill upon patient request if the prescription is for a schedule II opioid drug., 1 application Topically 2 times a da... Start Date: 01/05/23 Status: Ordered nystatin topical [id number] u/gm cream 0 Refills, Maintenance, 01/06/23 18:05:00 [...] Maintenance,11/16/22 10:34:00 EST, Route to Pharmacy Electronically, [facility], Partial fill upon patient request if [...] 1 Oxygen Saturation [94-100 %] 99 % (03/28/23 1:13 AM) Pulse Rate [55-90 bpm] 89 bpm (03/28/23 1:13 AM) Blood Pressure [90-138/55-84 mm Hg] 138/ 76mm Hg (03/28/23 1:13 AM) Respiratory Rate [16-30 br/min] 16 br/mi n (03/28/23 1:13 AM) Temperature [96.8-100.4 DegF] 98.6 DegF (03/28/23 1:13 AM) Mode of Delivery (Oxygen) Room air (03/28/23 1:13 AM) Blood pressure sites Arm, right (03/28/23 1:13 AM) Temperature Route Oral (03/28/23 1:13 AM) Social History Social History Type Response [...] Care Nurse Name: Alicja Riggs RN Position: [facility] RN Member Role: Primary Care Nurse Name: Ros Fu RN Position: [facility] RN Member Role: Primary Care Nurse Name: Hilda Mccaeb RN Position: [facility] RN Member Role: Primary Care Nurse Name: Rosana Kearney RN Position: [facility] SN RN Member Role: Primary Care Nurse Name: Wil Flood RN Position: [facility] RN Member Role: Primary Care Nurse Name: Gagandeep Sheldon RN Position: [facility] RN Member Role: Primary Care Nurse Name: Chip Morton Position: [facility] Outreach Member Role: Lifetime Consulting Physician Name: Alba Daily RN Position: [facility] RN Member Role: Primary Care Nurse Name: Maribel Marquez NP Position: [facility] PCO Associate Professional Member Role: PCP Address: Address: [address] [place] [address]- Name: Jose Ramirez RN Position: [facility] RN Member Role: Primary Care Nurse Name: Brittany Butts RN Position: [facility] AMB Nurse Member Role: Primary Care Nurse Name: Pauline Mcadams RN Position: [facility] RN Member Role: Primary Care Nurse Name: Mary Sánchez RN Position: [facility] RN Member Role: Primary Care Nurse Name: Shama Rosado RN Position: [facility] RN Member Role: Primary Care Nurse Name: Jackie Snyder RN Position: [facility] RN Member Role: Primary Care Nurse Name: Jay Burks NP Position: Reference Physician Member Role: Primary Care Nurse Address: Address: [address] [place], [place] [id number] Clinical & [place] [address]- Name: Parvez Kaba MD Position: [facility] Renal MD Member Role: Lifetime Consulting Physician Address: Address: [address] [place] [address] [facility] [place] [address]- Name: Mirna Paul RN Position: [facility] OB RN Member Role: Primary Care Nurse Name: Latonya Rahman RN Position: [facility] Onco RN Member Role: Primary Care Nurse Name: Viki Gonzalez RN Position: [facility] RN Member Role: Primary Care Nurse Name: Claudia Presley RN Position: [facility] RN Member Role: Primary Care Nurse Name: Iris Villa RN Position: [facility] Hospital Traffic Ii Manager Member Role: Primary Care Nurse Name: Director Yue LE Position: [facility] Resident Member Role: ED Resident Address: Address: [address] [place] [address]- Name: Allison Quezada Position: [facility] ED TA [facility] Name: Anam Singh RN Position: [facility] ED RN W/OE and Tasks Member Role: Patient Care Provider Name: Yony Echevarria MD Position: [facility] ED Medicine MD Member Role: Admitting Physician Address: Address: [address] [place] [address]- Care Team Related Persons Name: LISBETH- DIRECTOR OF PRIMARYINDRA Address: [address] [place] [address] Name: FIRE SERVICES PLUMBERGREGG Address: [address] [place] [address] Name: CARLOS PAZ Address: [address] [place] [address]
--- OUTSIDE RECORDS SUMMARY | 2023-07-16 14:53 | XMS_ITS | Continuity of Care Document ---
Author Name Unknown Organization [facility] ter Address [address] [place] [address]- Care Team Providers Care Neonatal Nurse Name Role Phone Michelle Norris MD Primary Care Physician [phone] Encounter [facility] [place] Date(s): 06/05/20 - 06/06/[address] [address] Encounter Diagnosis Depression(Final) - 06/05/20 Discharge Disposition: A-D/C Home Attending Physician: Nathan [...] 0 Refills, Maintenance, 02/09/20 10:07:00 EDT, Tablet, [facility], 165, cm, 02/08/20 19:47:00 EDT, Height, 104.5, kg, 02/07/20 8:15:00 EDT, Dry Weight Start Date: 02/09/20 Status: Ordered chlorproMAZINE 25 mg oral tablet = 25 mg, By Mouth, 3 times a day, PRN Agitation Anxiety, # 90 tablet, 0 Refills, Maintenance, 02/09/20 10:08:00 EDT, Tablet, [facility], 165, cm, 02/08/20 19:47:00 EDT, Height, 104.5, kg,02/07/20 8:15:00 EDT, Dry Weight Start Date: 02/09/20 Status: Ordered Claritin 10 mg oral tablet 10 mg, 1, tablet, By Mouth, Daily, # 30 tablet, Refills 0, Tot. Refills 0, Maintenance, 02/09/20 10:10:00 EDT, Route to Pharmacy Electronically, [facility], 165, cm, 02/08/20 19:47:00 EDT, Height, 104.5, kg, 02/07/20 8:15:00 EDT, Dry Weight Start Date: 02/09/20 Status: Ordered Colace sodium 100 mg oral capsule 100 mg, 1, capsule, By Mouth, 2 times a day, PRN, # 60 capsule, Refills 0, Tot. Refills 0, Maintenance, Constipation, 02/09/20 10:08:00 EDT, Route to Pharmacy Electronically, [facility], 165, cm, 02/08/20 19:47:00 EDT, Height, 104.5, kg, 04/... Start Date: 02/09/20 Status: Ordered Flonase 50 mcg/inh nasal spray 1 sprays = 50 mcg, Nares, Both, 2 times a day, # 16 Gm, 0 Refills, Maintenance, 02/09/20 10:09:00 EDT, Nasal Ragland, [facility], 1 sprays Nares, Both 2 times a day,x30 days, 165, cm, 02/08/20 19:47:00 EDT, Height, 104.5, kg, 02/07/20 8:15:00... Start Date: 02/09/20 Stop Date: 03/10/20 Status: Ordered Flovent HFA 110 mcg/inh inhalation aerosol 2 puffs = 220 mcg, Inhalation, 2 times a day, # 1 each, 0 Refills, Maintenance, 02/09/20 10:06:00 EDT, Aerosol, [facility], 165, cm, 02/08/20 19:47:00 EDT, Height, 104.5, kg, 02/07/20 8:15:00 EDT, Dry Weight Start Date: 02/09/20 Status: Ordered lisinopril 5 mg oral tablet 5 mg, 1, tablet, By Mouth, Daily, # 30 tablet, Refills 0, Tot. Refills 0, Maintenance, 02/09/20 10:10:00 EDT, Route to Pharmacy Electronically, [facility], 165, cm, 02/08/20 19:47:00 EDT, Height, 104.5, kg, 02/07/20 8:15:00 EDT, Dry Weight Start Date: 02/09/20 Status: Ordered montelukast 10 mg oral tablet 10 mg, 1, tablet, By Mouth, Daily, # 30 tablet, Refills 0, Tot. Refills 0, Maintenance, 02/09/20 10:11:00 EDT, Route to Pharmacy Electronically, [facility], 165, cm, 02/08/20 19:47:00 EDT, Height, 104.5, kg, 02/07/20 8:15:00 EDT, Dry Weight Start Date: 02/09/20 Status: Ordered norethindrone 0.35 mg oral tablet 1 tablet = 0.35 mg, By Mouth, Daily, # 30 tablet, 0 Refills, Maintenance, 02/09/20 10:07:00 EDT, Tablet, [facility], 165, cm, 02/08/20 19:47:00 EDT, Height, [...] 9:00:00 EDT, 02/09/20 10:22:00 EDT, REC Powder, [facility], 17 Gm By Mouth Daily,Instr:dissolve in water before taking, 165, cm, 02/08/20 19:47:00... Start Date: 02/09/20 Stop Date: 02/08/21 Status: Ordered prazosin 2 mg oral capsule 2 capsule = 4 mg, By Mouth, Daily at bedtime, # 60 capsule, 1 Refills, Maintenance, 02/09/20 10:12:00 EDT, [facility], 165, cm, 02/08/20 19:47:00 EDT, Height, 104.5, kg, 02/07/20 8:15:00 EDT, Dry Weight Start Date: 02/09/20 Stop Date: 03/08/20 Status: Ordered traZODone 150 mg oral tablet 1 tablet = 150 mg, By Mouth, Daily at bedtime, for sleep, # 30 tablet, 1 Refills, Maintenance, 02/09/20 10:13:00 EDT, Tablet, [facility], 165, cm, 02/08/20 19:47:00 EDT, Height, 104.5, kg, 02/07/20 8:15:00 EDT, Dry Weight Start Date: 02/09/20 Status: Ordered Trileptal 150 mg oral tablet 150 mg, 1, tablet, By Mouth, Daily at bedtime, # 30 tablet, Refills 0, Tot. Refills 0, Maintenance,02/09/20 10:12:00 EDT, Route to Pharmacy Electronically, [facility], 165, cm, 02/08/20 19:47:00 EDT, Height, 104.5, kg, 02/07/20 8:15:00 EDT,... Start Date: 02/09/20 Status: Ordered Trileptal 300 mg oral tablet 300 mg, 1, tablet, By Mouth, Daily at bedtime, # 30 tablet, Refills 0, Tot. Refills 0, Maintenance,02/09/20 10:18:00 EDT, Route to Pharmacy Electronically, [facility], 165, cm, 02/08/20 19:47:00 EDT, Height, 104.5, kg, 02/07/20 8:15:00 EDT,... Start Date: 02/09/20 Status: Ordered Ventolin HFA 108 mcg/inh inhalation aerosol with adapter 2 puffs = 180 mcg, Inhalation, 4 times a day, PRN for wheezing, # 1 each, 0 Refills, Maintenance, 02/09/20 10:05:00 EDT, Inhaler, [facility], 165, cm, 02/08/20 19:47:00 EDT, Height, 104.5, kg, 02/07/20 8:15:00 EDT, Dry Weight Start Date: 02/09/20 Stop Date: 03/10/20 Status: Ordered verapamil 240 mg/12 hours oral tablet, extended release 1 tablet = 240 mg, By Mouth, Daily at bedtime, # 30 tablet, 0 Refills, Maintenance, 02/09/20 10:14:00 EDT, SR Tablet, [facility], 165, cm, 02/08/20 19:47:00 EDT, Height, [...] 3 Oxygen Saturation [94-100 %] 98 % (06/06/20 9:56 AM) 97 % (06/06/20 5:12 AM) 96 % (06/06/20 1:21 AM) Pulse Rate [55-90 bpm] 92 bpm *H* (06/06/20 9:56 AM) 79 bpm (06/06/20 5:12 AM) 71 bpm (06/06/20 1:21 AM) Blood Pressure [90-138/55-84 mm Hg] 144/80mm Hg *H* (06/06/20 9:56 AM) 124/79mm Hg (06/06/20 5:12 AM) 135/92mm Hg (06/06/20 1:21 AM) Respiratory Rate [16-30 br/min] 17 br/min (06/06/20 9:56 AM) 20 br/min (06/06/20 5:12 AM) 20 br/min (06/06/20 1:21 AM) Temperature [96.8-100.4 DegF] 97.8 DegF (06/06/20 9:56 AM) 98.2 DegF (06/06/20 5:12 AM) 98 DegF (06/06/20:21 AM) Mode of Delivery (Oxygen) Room air (06/06/20 9:56 AM) Room air (06/06/20 5:12 AM) Room air (06/06/20 1:21 AM) Blood pressure sites Arm, left (06/06/20 9:56 AM) Arm, right (06/06/20 5:12 AM) Arm, right (06/06/20:21 AM) Temperature Route Oral (06/06/20 9:56 AM) Oral (06/06/20 5:12 AM) Oral (06/06/20:21 AM) Social History Social History Type Response Smoking Status 10 or more cigarette s (1/2 pack or more)/day in last 30 days; Use: smokes 1 pack a day entered on: 05/10/19 Sex
--- OUTSIDE RECORDS SUMMARY | 2023-07-16 14:53 | XMS_ITS | Continuity of Care Document ---
Author Name Unknown Organization [facility] ter Address [address] [place] [address]- Care Team Providers Care Flight Paramedic Name Role Phone Maribel Marquez NP Primary Care Physician Encounter [facility] [place] Date(s): 02/15/23 - 02/16/[address] [address]- Encounter Diagnosis Depression(Final) - 02/16/23 Discharge Disposition: Transfer to Psych Facility Attending Physician: Jerald Noble MD Admitting Physician: Jerald Noble MD Referring Physician: Not on Staff, Referring MD Allergies, Adverse Reactions, Alerts Substance Reaction Severity Status codeine Active lithium 1 Active penicillin Active predniSONE Active sulfa drugs Active Zithromax Active Seafood Active Geodon Active Macrobid Active 1pt reports 01/17/13 started taking lithium [...] 10:33:00 EST, Inhaler, Route to Pharmacy Electronically, [id number], [facility], 163, cm, 11/16/22 9:43:00 EST, Height, 97.3,... Start Date: 11/16/22 Status: Ordered atorvastatin 10 mg oral tablet 1 tablet = 10 mg, By Mouth, Daily at bedtime, # 30 tablet, 0 Refills, Maintenance, 11/16/22 10:33:00 EST, Tablet, [facility], Partial fill upon patient request [...] 02/19/23 0:07:00 EDT, 02/12/23 0:07:00 EDT, Syrup, [facility], Partial fill upon patient request if the prescription is for a schedule II opioid... Start Date: 02/12/23 Stop Date: 02/19/23 Status: Ordered lisinopril 5 mg oral tablet 5 mg, Tablet, By Mouth, 02/16/23 9:00:00 EDT Start Date: 02/16/23 Stop Date: 02/16/23 Status: Completed lisinopril 5 mg oral tablet [...] is for a schedule II opioid drug., [id number], 11/16/22 9:43:00 EST,... Start Date: 11/16/22 [...] Start Date: 01/06/23 Status: Ordered nystatin topical 961323 u/gm cream 1 application, Topically, 2 times a day, # 15 Gm, 0 Refills, Maintenance, 01/05/23 15:04:00 EDT, Cream, [facility], Partial fill upon patient request if the prescription is for a schedule II opioid drug., 1 application Topically 2 times a da... Start Date: 01/05/23 Status: Ordered nystatin topical [id number] u/gm cream 0 Refills, Maintenance, 01/06/23 18:05:00 [...] 11/16/22 10:34:00 EST, Route to Pharmacy Electronically, [facility], Partial [...] Maintenance,11/16/22 10:34:00 EST, Route to Pharmacy Electronically, [facility], Partial [...] 3 Oxygen Saturation [94-100 %] 98 % (02/16/23 6:35 AM) 98 % (02/15/23 7:33 PM) Pulse Rate [55-90 bpm] 98 bpm *H* (02/16/23 6:35 AM) 96 bpm *H* (02/15/23 7:33 PM) Blood Pressure [90-138/55-84 mm Hg] 140/88mm Hg *H* (02/16/23 9:16 AM) 143/85mm Hg *H* (02/16/23 6:35 AM) 151/90mm Hg *H* (02/15/23 7:33 PM) Respiratory Rate [16-30 br/min] 18 br/min (02/16/23 6:35 AM) 20 br/min (02/15/23 7:33 PM) Temperature [96.8-100.4 DegF] 97.5 DegF (02/16/23 6:35 AM) 98.2 DegF (02/15/23 7:33 PM) Mode of Delivery (Oxygen) Room air (02/16/23 6:35 AM) Room air (02/15/23 7:33 PM) Temperature Route Oral (02/16/23 6:35 AM) Oral (02/15/23 7:33 PM) Social History Social History Type Response [...] Care Nurse Name: Hilda Mccabe RN Position: [facility] RN Member Role: Primary Care Nurse Name: Rosana Kearney RN Position: [facility] SN RN Member Role: Primary Care Nurse Name: Wil Flood RN Position: [facility] RN Member Role: Primary Care Nurse Name: Gagandeep Sheldon RN Position: [facility] RN Member Role: Primary Care Nurse Name: Chip Morton Position: [facility] Outreach Member Role: Lifetime Consulting Physician Name: Alba Daily RN Position: [facility] RN Member Role: Primary Care Nurse Name: Maribel Marquez NP Position: [facility] PCO Associate Professional Member Role: PCP Address: Address: [address] [place] [address] [address] Name: Jose Ramirez RN Position: [facility] [...] Member Role: Primary Care Nurse Name: Kimmie FLOAT TENDERJay Position: Reference Physician Member Role: Primary Care Nurse Address: Address: [address] [facility] [address] [facility] [place] [address]- [place] Name: Parvez Kaba MD Position: [facility] Renal MD Member Role: Lifetime Consulting Physician Address: Address: [address] [place] [address] [facility] [place] [address]- [place] Name: Mirna Paul RN Position: [facility] [...] Care Nurse Name: Iris iVlla RN Position: [facility] Hospital Reconciliation Specialist Member Role: Primary Care Nurse [facility] Attending Position: [facility] ED Attendings Patient Name: Arianna Miguel RN Position: [facility] ED RN W/OE and Tasks Member Role: Patient Care Provider Name: Jerald Noble MD Position: [facility] Resident Member Role: Admitting Physician Address: Address: [address] [facility] [place] [address]- [place] Name: Julio Constantino Position: [facility] ED TA [facility] Member Role: Patient Care Provider Care Team Related Persons Name: JO-ANN ROMANSTIFF NECK LOADERINDRA Address: [address] [place] [address] Name: LINE WORKERGREGG Address: home [address] [place] [address] Name: CARLOS PAZ Address: home [address] [place] [address]
--- OUTSIDE RECORDS SUMMARY | 2023-07-16 14:53 | XMS_ITS | Continuity of Care Document ---
Author Name Unknown Organization [facility] Address [address] [place] [address]- Care Team Providers Care Real Estate Management Specialist Name Role Phone Maribel Marquez NP Primary Care Physician Encounter [facility] [place] Date(s): 05/31/22 - 06/30/22 [facility] [address] [place] [address]- Allergies, Adverse Reactions, Alerts Substance Reaction Severity [...] tablet, 0 Refills, Maintenance, 01/04/22 11:12:00 EDT, [facility], Partial fill upon patient request if [...] 04/11/21 9:22:00 EDT, Route to Pharmacy Electronically, [facility], Partial fill upon patient request if the prescription is for a schedule II opioid . Start Date: 04/11/21 Stop Date: 01/06/22 Status: Ordered Flovent HFA 110 mcg/inh inhalation aerosol 2 puffs, Inhalation, 2 times a day, # 12 Gm, 1 Refills, [facility], 162, cm, 03/20/22 19:50:00 EDT, Height, 105, [...] A DAY, # 60 tablet, 5 Refills, [facility],165, cm, 01/19/22 13:55:00 EDT, Height, 103, kg, [...] 01/04/22 11:12:00 EDT, Route to Pharmacy Electronically, [facility], 165, cm, 12/19/21 10:41:00 EST, Height, [...] 01/19/22 10:48:00 EDT, Route to Pharmacy Electronically, [facility], Partial fill upon patient request if the prescription is for a schedule... Start Date: 01/19/22 Status: Ordered ProAir HFA 90 mcg/inh inhalation aerosol 2 puffs, Inhalation, 4 times a day, PRN as needed for wheezing, # 6.7 Gm, 1 Refills, Maintenance, 06/23/22 16:17:00 EDT, Aerosol, [facility], Partial fill upon patient request if [...] 06/23/22 16:16:00 EDT, Route to Pharmacy Electronically, [facility], Partial fill upon los... Start Date: [...] Refills, Maintenance, 05/09/21 8:45:00 EDT, SR Tablet, [facility], 165, cm, 04/11/21 7:42:00 EDT, Height, [...] Team Personnel Name: Maribel Marquez NP Address: [address] [place] [id number]
--- OUTSIDE RECORDS SUMMARY | 2023-07-16 14:53 | XMS_ITS | Continuity of Care Document ---
Author Name Unknown Organization [facility] Address [address] [place] [address]- Care Team Providers Care Macerator Operator Name Role Phone Maribel Marquez NP Primary Care Physician [phone] Encounter [facility] [place] Date(s): 01/19/21 - 02/18/21 [facility] [address] [place] [address]- Allergies, Adverse Reactions, Alerts Substance Reaction Severity [...] 02/19/21 12:25:00 EDT, 02/12/21 12:25:00 EDT, Capsule, [facility], Partial fill upon patient [...] 0 Refills, Maintenance, 12/23/20 15:38:00 EST, Aerosol, [facility], 162, cm, 12/23/20 10:43:00 EST, Height, [...] 02/12/21 12:25:00 EDT, Route to Pharmacy Electronically, [facility], Partial fill upon patient reques... Start Date: 02/12/21 Stop Date: 02/19/21 Status: Ordered lisinopril 5 mg oral tablet 5 mg, 1, tablet, By Mouth, Daily, # 30 tablet, Refills 0, Tot. Refills 0, Maintenance, 02/09/20 10:10:00 EDT, Route to Pharmacy Electronically, [facility], 165, cm, 02/08/20 19:47:00 EDT, Height, [...] 02/09/20 10:11:00 EDT, Route to Pharmacy Electronically, [facility], 165, cm, 02/08/20 19:47:00 EDT, Height, 104.5, kg, 02/07/20 8:15:00 EDT, Dry Weight Start Date: 02/09/20 Status: Ordered norethindrone 0.35 mg oral tablet 1 tablet = 0.35 mg, By Mouth, Daily, # 30 tablet, 0 Refills, Maintenance, 02/09/20 10:07:00 EDT, Tablet, [facility], 165, cm, 02/08/20 19:47:00 EDT, Height, [...] Refills, Maintenance, 12/23/20 15:38:00 EST, REC Powder, [facility], Partial fill upon patient request if [...] 0 Refills, Maintenance, 02/09/20 10:05:00 EDT, Inhaler, [facility], 165, cm, 02/08/20 19:47:00 EDT, Height, 104.5, kg, 02/07/20 8:15:00 EDT, Dry Weight Start Date: 02/09/20 Stop Date: 03/10/20 Status: Ordered verapamil 240 mg/12 hours oral tablet, extended release 1 tablet = 240 mg, By Mouth, Daily at bedtime, # 30 tablet, 0 Refills, Maintenance, 02/09/20 10:14:00 EDT, SR Tablet, [facility], 165, cm, 02/08/20 19:47:00 EDT, Height, [...]
--- OUTSIDE RECORDS SUMMARY | 2023-07-16 14:53 | XMS_ITS | Continuity of Care Document ---
Author Name Unknown Organization [facility] ter Address [address] [place] [address]- Care Team Providers Care Food And Beverage Manager Name Role Phone Maribel Marquez NP Primary Care Physician [phone] Encounter [facility] [place] Date(s): 05/26/22 - 05/26/[address] [address]- Discharge Disposition: A-D/C Home Attending Physician: Beni [...] tablet, 0 Refills, Maintenance, 01/04/22 11:12:00 EDT, [facility], Partial fill upon patient request if [...] a day, # 12 Gm, 1 Refills, [facility], 162, cm, 03/20/22 19:50:00 EDT, Height, [...] A DAY, # 60 tablet, 5 Refills, [facility],165, cm, 01/19/22 13:55:00 EDT, Height, 103, [...] 01/04/22 11:12:00 EDT, Route to Pharmacy Electronically, [facility], 165, cm, 12/19/21 10:41:00 EST, Height, [...] 01/19/22 10:48:00 EDT, Route to Pharmacy Electronically, [facility], Partial fill upon patient request if [...] Refills, Maintenance, 05/09/21 8:45:00 EDT, SR Tablet, [facility], 165, cm, 04/11/21 7:42:00 EDT, Height, [...] 3 Oxygen Saturation [94-100 %] 98 % (05/26/22 2:26 PM) 98 % (05/26/22: PM) 97 % (05/26/22 11:54 AM) Pulse Rate [55-90 bpm] 81 bpm (05/26/22 2:26 PM) 84 bpm (05/26/22:23 PM) 85 bpm (05/26/22 11:54 AM) Blood Pressure [90-138/55-84 mm Hg] 124/81mm Hg (05/26/22 2:26 PM) 132/74mm Hg (05/26/22:23 PM) 135/77mm Hg (05/26/22 11:54 AM) Respiratory Rate [16-30 br/min] 16 br/min (05/26/22 2:26 PM) 18 br/min (05/26/22:23 PM) 18 br/min (05/26/22 11:54 AM) Temperature [96.8-100.4 DegF] 97.6 DegF (05/26/22 11:54 AM) Mode of Delivery (Oxygen) Room air (05/26/22 2:26 PM) Room air (05/26/22 1:23 PM) Room air (05/26/22 11:54 AM) Blood pressure sites Arm, right (05/26/22 2:26 PM) Arm, left (05/26/22 1:23 PM) Arm, right (05/26/22 11:54 AM) Temperature Route Oral (05/26/22 11:54 AM) Social History Social History Type Response Smoking Status 10 or more cigarette s (1/2 pack or more)/day in last 30 days; Type: Cigarettes; Other: Reports smoking 1/2-1 packs/day, ending on level of stress; Started at age: 25; entered on: 12/31/20 Sex
--- OUTSIDE RECORDS SUMMARY | 2023-07-16 14:53 | XMS_ITS | Continuity of Care Document ---
Author Name Unknown Organization [facility] ter Address [address] [place] [id number]- Care Team Providers Care Construction Supervisor/Carpenter Name Role Phone Maribel Marquez NP Primary Care Physician Encounter [facility] [place] Date(s): 03/01/22 - 03/02/[address] [address]- Encounter Diagnosis Self-cutting of wrist(Final) - 03/01/22 Auditory hallucination(Final) - 03/01/22 Suicidal ideations(Final) - 03/01/22 Discharge Disposition: A-D/C Home Attending Physician: Danielle Lorenzo DO Admitting Physician: Danielle Lorenzo DO Referring Physician: Not on Staff, [...] tablet, 0 Refills, Maintenance, 01/04/22 11:12:00 EDT, [facility], Partial fill upon patient request if [...] 04/11/21 9:22:00 EDT, Route to Pharmacy Electronically, [facility], Partial fill upon patient request if the prescription is for a schedule II opioid . Start Date: 04/11/21 Stop Date: 01/06/22 Status: Ordered Flovent HFA 110 mcg/inh inhalation aerosol 2 puffs, Inhalation, 2 times a day, # 12 Gm, 2 Refills, [facility], 165, cm, 12/19/21 10:41:00 EST, Height, [...] 04/04/22 12:34:00 EDT, 01/04/22 12:34:00 EDT, Tablet, [facility], Partial fill upon patient request if the prescription is f... Start Date: 01/04/22 Stop Date: 04/04/22 Status: Ordered metFORMIN 500 mg oral tablet See Instructions, TAKE 1 EACH BY MOUTH 2 TIMES A DAY, # 60 tablet, 5 Refills, [facility],165, cm, 01/19/22 13:55:00 EDT, Height, 103, [...] 01/04/22 11:12:00 EDT, Route to Pharmacy Electronically, [facility], 165, cm, 12/19/21 10:41:00 EST, Height, 103, kg, 11/26/21 8:59:00 EST, Dr... Start Date: 01/04/22 Status: Ordered pantoprazole 40 mg oral delayed release tablet 1 tablet = 40 mg, By Mouth, Daily, Maintenance, 01/30/22 13:58:00 EDT, [facility] Tablet Start Date: 01/30/22 Status: Ordered prazosin 1 mg oral capsule 4 mg, Capsule, By Mouth, 03/01/22 21:32:00 EDT Start Date: 03/01/22 Stop Date: 03/02/22 Status: Completed prazosin 1 mg oral capsule 4 mg, 4, capsule, By Mouth, Daily at bedtime, # 120 capsule, Refills 5, Tot. Refills 5, Maintenance, 01/19/22 10:48:00 EDT, Route to Pharmacy Electronically, [facility], Partial fill upon patient request if [...] Refills, Maintenance, 05/09/21 8:45:00 EDT, SR Tablet, [facility], 165, cm, 04/11/21 7:42:00 EDT, [...] 3 Oxygen Saturation [94-100 %] 95 % (03/02/22 2:54 PM) 95 % (03/02/22 7:38 AM) 96 % (03/02/22 12:44 AM) Pulse Rate [55-90 bpm] 62 bpm (03/02/22 2:54 PM) 63 bpm (03/02/22 7:38 AM) 74 bpm (03/02/22 12:44 AM) Blood Pressure [90-138/55-84 mm Hg] 122/72mm Hg (03/02/22 2:54 PM) 119/62mm Hg (03/02/22 7:38 AM) 145/90mm Hg *H* (03/02/22 1:44 AM) Respiratory Rate [16-30 br/min] 16 br/min (03/02/22 2:54 PM) 16 br/min (03/02/22 7:38 AM) 16 br/min (03/02/22 12:44 AM) Temperature [96.8-100.4 DegF] 98.1 DegF (03/02/22 7:38 AM) 98.4 DegF (03/02/22 12:44 AM) 98.7 DegF (03/01/22 6:54 PM) Mode of Delivery (Oxygen) Room air (03/02/22 2:54 PM) Room air (03/02/22 7:38 AM) Room air (03/02/22 12:44 AM) Blood pressure sites Arm, right (03/02/22 2:54 PM) Arm, right (03/02/22 7:38 AM) Arm, right (03/02/22 12:44 AM) Temperature Route Oral (03/02/22 7:38 AM) Oral (03/02/22 12:44 AM) Oral (03/01/22 6:54 PM) Social History Social History Type Response Smoking Status 10 or more cigarette s (1/2 pack or more)/day in last 30 days; Type: Cigarettes; Other: Reports smoking 1/2-1 packs/day, ending on level of stress; Started at age: 25; entered on: 12/31/20 Sex
--- OUTSIDE RECORDS SUMMARY | 2023-07-16 14:53 | XMS_ITS | Continuity of Care Document ---
Author Name Unknown Organization [facility] ter Address [address] [place] [id number]- Care Team Providers Care Thickener Operator Name Role Phone Michelle Norris MD Primary Care Physician [phone] [place] [facility] [place] - 02/11/[address] [address]- [facility] Encounter Diagnosis Suicidal ideation(Final) - 02/11/20 History of bipolar disorder(Final) - 02/11/20 History of borderline personality disorder(Final) - 02/11/20 Discharge Disposition: A-D/C Home Attending Physician: Darryl Urbano MD Admitting Physician: Darryl Urbano MD Referring Physician: Not on Staff, Referring [...] 0 Refills, Maintenance, 02/09/20 10:07:00 EDT, Tablet, [facility], 165, cm, 02/08/20 19:47:00 EDT, Height, 104.5, kg, 02/07/20 8:15:00 EDT, Dry Weight Start Date: 02/09/20 Status: Ordered chlorproMAZINE 25 mg oral tablet = 25 mg, By Mouth, 3 times a day, PRN Agitation Anxiety, # 90 tablet, 0 Refills, Maintenance, 02/09/20 10:08:00 EDT, Tablet, [facility], 165, cm, 02/08/20 19:47:00 EDT, Height, 104.5, kg,02/07/20 8:15:00 EDT, Dry Weight Start Date: 02/09/20 Status: Ordered Claritin 10 mg oral tablet 10 mg, 1, tablet, By Mouth, Daily, # 30 tablet, Refills 0, Tot. Refills 0, Maintenance, 02/09/20 10:10:00 EDT, Route to Pharmacy Electronically, [facility], 165, cm, 02/08/20 19:47:00 EDT, Height, 104.5, kg, 02/07/20 8:15:00 EDT, Dry Weight Start Date: 02/09/20 Status: Ordered Colace sodium 100 mg oral capsule 100 mg, 1, capsule, By Mouth, 2 times a day, PRN, # 60 capsule, Refills 0, Tot. Refills 0, Maintenance, Constipation, 02/09/20 10:08:00 EDT, Route to Pharmacy Electronically, [facility], 165, cm, 02/08/20 19:47:00 EDT, Height, 104.5, kg, 04/... Start Date: 02/09/20 Status: Ordered Flonase 50 mcg/inh nasal spray 1 sprays = 50 mcg, Nares, Both, 2 times a day, # 16 Gm, 0 Refills, Maintenance, 02/09/20 10:09:00 EDT, Nasal [place], [facility], 1 sprays Nares, Both 2 times a day,x30 days, 165, cm, 02/08/20 19:47:00 EDT, Height, 104.5, kg, 02/07/20 8:15:00... Start Date: 02/09/20 Stop Date: 03/10/20 Status: Ordered Flovent HFA 110 mcg/inh inhalation aerosol 2 puffs = 220 mcg, Inhalation, 2 times a day, # 1 each, 0 Refills, Maintenance, 02/09/20 10:06:00 EDT, Aerosol, [facility], 165, cm, 02/08/20 19:47:00 EDT, Height, 104.5, kg, 02/07/20 8:15:00 EDT, Dry Weight Start Date: 02/09/20 Status: Ordered hydrOXYzine pamoate 25 mg oral capsule 1 capsule = 25 mg, By Mouth, 4 times a day, # 120 capsule, 0 Refills, Acute 03/11/20 9:00:00 EDT, 02/09/20 10:09:00 EDT, Capsule, [facility], 165, cm, 02/08/20 19:47:00 EDT, Height, 104.5, kg, 02/07/20 8:15:00 EDT, Dry Weight Start Date: 02/09/20 Stop Date: 03/11/20 Status: Ordered lisinopril 5 mg oral tablet 5 mg, 1, tablet, By Mouth, Daily, # 30 tablet, Refills 0, Tot. Refills 0, Maintenance, 02/09/20 10:10:00 EDT, Route to Pharmacy Electronically, [facility], 165, cm, 02/08/20 19:47:00 EDT, Height, 104.5, kg, 02/07/20 8:15:00 EDT, Dry Weight Start Date: 02/09/20 Status: Ordered LORazepam 0.5 mg oral tablet 1 tablet = 0.5 mg, By Mouth, Daily, PRN as needed for anxiety, # 30 tablet, 0 Refills, Acute 03/10/20 9:00:00 EDT, 02/09/20 10:29:00 EDT, Tablet Start Date: 02/09/20 Stop Date: 03/10/20 Status: Ordered montelukast 10 mg oral tablet 10 mg, 1, tablet, By Mouth, Daily, # 30 tablet, Refills 0, Tot. Refills 0, Maintenance, 02/09/20 10:11:00 EDT, Route to Pharmacy Electronically, [facility], 165, cm, 02/08/20 19:47:00 EDT, Height, 104.5, kg, 02/07/20 8:15:00 EDT, Dry Weight Start Date: 02/09/20 Status: Ordered norethindrone 0.35 mg oral tablet 1 tablet = 0.35 mg, By Mouth, Daily, # 30 tablet, 0 Refills, Maintenance, 02/09/20 10:07:00 EDT, Tablet, [facility], 165, cm, 02/08/20 [...] 9:00:00 EDT, 02/09/20 10:22:00 EDT, REC Powder, [facility], 17 Gm By Mouth Daily,Instr:dissolve in water before taking, 165, cm, 02/08/20 19:47:00... Start Date: 02/09/20 Stop Date: 02/08/21 Status: Ordered prazosin 2 mg oral capsule 2 capsule = 4 mg, By Mouth, Daily at bedtime, # 60 capsule, 1 Refills, Maintenance, 02/09/20 10:12:00 EDT, [facility], 165, cm, 02/08/20 19:47:00 EDT, Height, 104.5, kg, 02/07/20 8:15:00 EDT, Dry Weight Start Date: 02/09/20 Stop Date: 03/08/20 Status: Ordered traZODone 150 mg oral tablet 1 tablet = 150 mg, By Mouth, Daily at bedtime, for sleep, # 30 tablet, 1 Refills, Maintenance, 02/09/20 10:13:00 EDT, Tablet, [facility], 165, cm, 02/08/20 19:47:00 EDT, Height, 104.5, kg, 02/07/20 8:15:00 EDT, Dry Weight Start Date: 02/09/20 Status: Ordered Trileptal 150 mg oral tablet 150 mg, 1, tablet, By Mouth, Daily at bedtime, # 30 tablet, Refills 0, Tot. Refills 0, Maintenance,02/09/20 10:12:00 EDT, Route to Pharmacy Electronically, [facility], 165, cm, 02/08/20 19:47:00 EDT, Height, 104.5, kg, 02/07/20 8:15:00 EDT,... Start Date: 02/09/20 Status: Ordered Trileptal 300 mg oral tablet 300 mg, 1, tablet, By Mouth, Daily at bedtime, # 30 tablet, Refills 0, Tot. Refills 0, Maintenance,02/09/20 10:18:00 EDT, Route to Pharmacy Electronically, [facility], 165, cm, 02/08/20 19:47:00 EDT, Height, 104.5, kg, 02/07/20 8:15:00 EDT,... Start Date: 02/09/20 Status: Ordered Ventolin HFA 108 mcg/inh inhalation aerosol with adapter 2 puffs = 180 mcg, Inhalation, 4 times a day, PRN for wheezing, # 1 each, 0 Refills, Maintenance, 02/09/20 10:05:00 EDT, Inhaler, [facility], 165, cm, 02/08/20 19:47:00 EDT, Height, 104.5, kg, 02/07/20 8:15:00 EDT, Dry Weight Start Date: 02/09/20 Stop Date: 03/10/20 Status: Ordered verapamil 240 mg/12 hours oral tablet, extended release 1 tablet = 240 mg, By Mouth, Daily at bedtime, # 30 tablet, 0 Refills, Maintenance, 02/09/20 10:14:00 EDT, SR Tablet, [facility], 165, cm, 02/08/20 19:47:00 EDT, Height, [...] to oldest [Reference Range]: 1 2 3 4 Oxygen Saturation [94-100 %] 100 % (02/11/20 6:53 AM) 100 % (02/11/20 4:36 AM) 98 % (02/11/20 12:39 AM) Pulse Rate [55-90 bpm] 94 bpm *H* (02/11/20 6:53 AM) 100 bpm *H* (02/11/20 4:36 AM) 95 bpm *H* (02/11/20 12:39 AM) Blood Pressure [90-138/55-84 mm Hg] 132/81mm Hg (02/11/20 6:53 AM) 143/94mm Hg *H* (02/11/20 4:36 AM) 146/80mm Hg *H* (02/11/20 12:39 AM) 146/80mm Hg *H* (02/11/20 12:39 AM) Respiratory Rate [16-30 br/min] 18 br/min (02/11/20 6:53 AM) 18 br/min (02/11/20 4:36 AM) 18 br/min (02/11/20 12:39 AM) Temperature [96.8-100.4 DegF] 98.2 DegF (02/11/20 6:53 AM) 97.9 DegF (02/11/20 4:36 AM) 97.1 DegF (02/10/20 9:04 PM) Mode of Delivery (Oxygen) Room air (02/11/20 6:53 AM) Room air (02/11/20 4:36 AM) Room air (02/11/20 12:39 AM) Temperature Route Oral (02/11/20 6:53 AM) Oral (02/11/20 4:36 AM) Oral (02/10/20 9:04 PM) Social History Social History Type Response Smoking Status 10 or more cigarette s (1/2 pack or more)/day in last 30 days; Use: smokes 1 pack a day entered on: 05/10/19 Sex
--- OUTSIDE RECORDS SUMMARY | 2023-07-16 14:53 | XMS_ITS | Continuity of Care Document ---
Author Name Unknown Organization [facility] Address [address] [place] [address]- Care Team Providers Care Toy Assembly Supervisor Name Role Phone Maribel Marquez NP Primary Care Physician [phone] [place] [facility] [place] 11/29/21 - 12/29/21 [facility] [address] [place] [address]- Allergies, Adverse Reactions, Alerts Substance Reaction Severity [...] tablet, 0 Refills, Maintenance, 12/14/21 9:46:00 EST, [facility], Partial fill upon patient request if [...] 07/22/20 18:41:00 EDT, Route to Pharmacy Electronically, [facility], 163.5, cm, 07/22/20 18:29:00 EDT, Height, 102.5, kg, 07/18/20 21:04:00 EDT... Start Date: 07/22/20 Status: Ordered ferrous sulfate 325 mg oral enteric coated tablet 325 mg, 1, tablet, By Mouth, Daily, # 90 tablet, Refills 2, Tot. Refills 2, Maintenance, 04/11/21 9:22:00 EDT, Route to Pharmacy Electronically, [facility], Partial fill upon patient request if the prescription is for a schedule II opioid . Start Date: 04/11/21 Stop Date: 01/06/22 Status: Ordered Flovent HFA 110 mcg/inh inhalation aerosol 2 puffs, Inhalation, 2 times a day, # 12 Gm, 2 Refills, [facility], 165, cm, 12/19/21 10:41:00 EST, Height, [...] 05/09/21 8:43:00 EDT, Route to Pharmacy Electronically, [facility], 165, cm, 04/11/21 7:42:00 EDT, Height, [...] 04/11/21 9:38:00 EDT, Route to Pharmacy Electronically, [facility], Partial fill upon patient requestif the [...] each, 1 Refills, Maintenance, 05/09/21 8:43:00 EDT,Tablet, [facility], Partial fill upon patient request if [...] 05/09/21 8:45:00 EDT, Route to Pharmacy Electronically, [facility], 165, cm, 04/11/21 7:42:00 EDT, Height, [...] Start Date: 11/08/21 Status: Ordered nystatin topical [id number] u/gm cream 1 application, Topically, 2 times [...] Gm, 5 Refills, Acute, 05/10/21 11:59:00 EDT, [facility], 15, TAKE 17 GM BY MOUTH [...] 0 Refills, Maintenance, 02/09/20 10:05:00 EDT, Inhaler, [facility], 165, cm, 02/08/20 19:47:00 EDT, Height, 104.5, kg, 02/07/20 8:15:00 EDT, Dry Weight Start Date: 02/09/20 Stop Date: 03/10/20 Status: Ordered verapamil 240 mg/12 hours oral tablet, extended release 1 tablet = 240 mg, By Mouth, Daily at bedtime, # 90 tablet, 1 Refills, Maintenance, 05/09/21 8:45:00 EDT, SR Tablet, [facility], 165, cm, 04/11/21 7:42:00 EDT, Height, [...]
--- OUTSIDE RECORDS SUMMARY | 2023-07-16 14:53 | XMS_ITS | Continuity of Care Document ---
Author Name Unknown Organization [facility] ter Address [address] [place] [id number]- Care Team Providers Care Photograph Developer Name Role Phone Maribel Marquez NP Primary Care Physician Encounter [facility] [place] Date(s): 01/05/23 - 01/05/[address] [address]- Encounter Diagnosis Hallucinations(Final) - 01/05/23 Discharge Disposition: A-D/C Home Attending Physician: Jay Zaragoza MD Admitting Physician: Mila LE, Jay Lora Referring Physician: Not on Staff, Referring MD [...] 10:33:00 EST, Inhaler, Route to Pharmacy Electronically, NCPDP_[id number], [facility], 163, cm, 11/16/22 9:43:00 EST, Height, [...] schedule I... Start Date: 11/16/22 Status: Ordered nystatin topical [id number] u/gm cream 1 application, Topically, 2 times a day, # 15 Gm, 0 Refills, Maintenance, 01/05/23 15:04:00 EDT, Cream, [facility], Partial fill upon patient request if the prescription is for a schedule II opioid drug., 1 application Topically 2 times a da... Start Date: 01/05/23 Status: Ordered pantoprazole 40 mg oral delayed [...] 11/16/22 10:34:00 EST, Route to Pharmacy Electronically, [facility], Partial fill upon patient request if the prescription is for a schedule... Start Date: 11/16/22 Status: Ordered traZODone 50 mg oral tablet 150 mg, 3, tablet, By Mouth, Daily at bedtime, # 90 tablet, Refills 0, Tot. Refills 0, Maintenance,11/16/22 10:34:00 EST, Route to Pharmacy Electronically, [facility], Partial fill upon patient request if [...] 2 Oxygen Saturation [94-100 %] 96 % (01/05/23 4:19 PM) 100 % (01/05/23 2:16 PM) Pulse Rate [55-90 bpm] 98 bpm *H* (01/05/23 4:19 PM) 102 bpm *H* (01/05/23 2:16 PM) Blood Pressure [90-138/55-84 mm Hg] 135/ 79mm Hg (01/05/23 4:19 PM) 144/86mm Hg *H* (01/05/23 2:16 PM) Respiratory Rate [16-30 br/min] 16 br/mi n (01/05/23 4:19 PM) 19 br/min (01/05/23 2:16 PM) Temperature [96.8-100.4 DegF] 97.9 DegF (01/05/23 2:16 PM) Liters per Minute 0 L/min (01/05/23 2:16 PM) Mode of Delivery (Oxygen) Room air (01/05/23 4:19 PM) Room air (01/05/23 2:16 PM) Blood pressure sites Arm, left (01/05/23 4:19 PM) Arm, left (01/05/23 2:16 PM) Temperature Route Oral (01/05/23 2:16 PM) Social History Social History Type Response Smoking Status 10 or more cigarette s (1/2 pack or more)/day in last 30 days; Type: Cigarettes; Other: Reports smoking 1/2-1 packs/day, ending on level of stress; Started at age: 25; entered on: 11/18/22 Sex Patient Care team information Care Team Personnel Name: Rudi Ruiz RN Position: [facility] ED RN W/OE and Tasks Member Role: Primary Care Nurse Name: Alicja Riggs RN Position: [facility] RN Member Role: Primary Care Nurse Name: Harmony Pagan Position: [facility] RN Member Role: Primary Care Nurse Name: Ros Fu RN Position: [facility] RN Member Role: Primary Care Nurse Name: Hilda Mccabe RN Position: [facility] RN Member Role: Primary Care Nurse Name: Rosana Kearney RN Position: [facility] SN RN Member Role: Primary Care Nurse Name: Wil Flood RN Position: [facility] RN Member Role: Primary Care Nurse Name: Gagandeep Sheldon RN Position: [facility] RN Member Role: Primary Care Nurse Name: Chip Morton Position: [facility] Outreach Member Role: Lifetime Consulting Physician Name: Alba Daily RN Position: [facility] RN Member Role: Primary Care Nurse Name: Maribel Marquez NP Position: [facility] PCO Associate Professional Member Role: PCP Address: Address: [address] [place] [phone]- [place] Name: Jose Ramirez RN Position: [facility] RN Member Role: Primary Care Nurse Name: Brittany Butts RN Position: [facility] AMB Nurse Member Role: Primary Care Nurse Name: Pauline Mcadams RN Position: [facility] RN Member Role: Primary Care Nurse Name: Mary Sánchez RN Position: [facility] RN Member Role: Primary Care Nurse Name: Shama Rosado RN Position: [facility] RN Member Role: Primary Care Nurse Name: Jackie Snyder RN Position: [facility] RN Member Role: Primary Care Nurse Name: Jay Burks NP Position: Reference Physician Member Role: Primary Care Nurse Address: Address: [address] [place] [address] [facility] [place] [address]- [place] Name: Parvez Kaba MD Position: [facility] Renal MD Member Role: Lifetime Consulting Physician Address: Address: [address] [place] [address] [facility] [place] [address]- Name: Yoana Ledezma RN Position: [facility] RN Member Role: Primary Care Nurse Name: Mirna Paul RN Position: [facility] OB RN Member Role: Primary Care Nurse Name: Latonya Rahman RN Position: [facility] Onco RN Member Role: Primary Care Nurse Name: Viki Gonzalez RN Position: [facility] RN Member Role: Primary Care Nurse Name: Claudia Presley RN Position: [facility] RN Member Role: Primary Care Nurse Name: Iris Villa RN Position: [facility] Hospital Commissioning Agent Member Role: Primary Care Nurse Name: Jay Zaragoza MD Position: [facility] ED Medicine MD Member Role: Admitting Physician Address: Address: [address] [place] [id number]- [place] Name: Lee Christensen Position: [facility] Associate Professional Member Role: ED Physician Family Life Educator Address: Address: [address] [place] [phone]- [place] Name: Ann Lam RN Position: [facility] ED RN W/OE and Tasks Member Role: Patient Care Provider Care Team Related Persons Name: JO-ANN ROMANVP LEGAL AFFAIRSINDRA Address: home [address] [place] [address] Name: INCOME TAX CONSULTANTGREGG Address: home [address] [place] [address] Name: CARLOS PAZ Address: home [address] [place] [address]
--- OUTSIDE RECORDS SUMMARY | 2023-07-16 14:53 | XMS_ITS | Continuity of Care Document ---
Author Name Unknown Organization [facility] Adult Address [address] [place] [address]- Care Team Providers Care Punch Finisher Name Role Phone Maribel Marquez NP Primary Care Physician [place] [facility] [place]s): 04/11/21 - 05/11/21 [facility] Adult [address] [place] [address]- Attending Physician: Jessica Kitchen Admitting Physician: AdmJessica [...] 0 Refills, Maintenance, 02/09/20 10:08:00 EDT, Tablet, [facility], 165, cm, 02/08/20 19:47:00 EDT, Height, 104.5, kg,02/07/20 8:15:00 EDT, Dry Weight Start Date: 02/09/20 Status: Ordered doxazosin 1 mg oral tablet 3 mg, 3, tablet, By Mouth, Daily at bedtime, # 90 tablet, Refills 0, Tot. Refills 0, Maintenance, 07/22/20 18:41:00 EDT, Route to Pharmacy Electronically, [facility], 163.5, cm, 07/22/20 18:29:00 [...] 3 Refills, Maintenance, 05/09/21 8:41:00 EDT, Aerosol, [facility], 165, cm, 04/11/21 7:42:00 EDT, Height, 102.6, kg, 02/12/21 12:14:00 EDT, Dry Weight Start Date: 05/09/21 Status: Ordered Haldol Decanoate decanoate 100 mg/ml injectable solution = 100 mg, Intramuscular, Every 28 days, last dose given on 09/17/2020. Next due 10/15/20., # 1 each, 0Refills, Soft Stop, 07/22/20 18:42:00 EDT, Solution, [facility], 163.5, cm, 07/22/20 18:29:00 EDT, Height, 102.5, kg, 07/18/20 21:04:00 EDT,... Start Date: 07/22/20 Status: Ordered lisinopril 5 mg oral tablet 5 mg, 1, tablet, By Mouth, Daily, # 90 tablet, Refills 1, Tot. Refills 1, Maintenance, 05/09/21 8:43:00 EDT, Route to Pharmacy Electronically, [facility], 165, cm, 04/11/21 7:42:00 EDT, Height, 102.6, kg, 02/12/21 12:14:00 EDT, Dry Weight Start Date: 05/09/21 Status: Ordered loratadine 10 mg oral tablet 10 mg, 1, tablet, By Mouth, Daily, # 90 tablet, Refills 3, Tot. Refills 3, Maintenance, 04/11/21 9:38:00 EDT, Route to Pharmacy Electronically, [facility], Partial fill upon patient requestif the [...] each, 1 Refills, Maintenance, 05/09/21 8:43:00 EDT,Tablet, [facility], Partial fill upon patient request if the prescription is for a schedule II opioid drug., 165, cm, 04/11/21 7:42:00 EDT, H... Start Date: 05/09/21 Stop Date: 11/05/21 Status: Ordered montelukast 10 mg oral tablet 10 mg, 1, tablet, By Mouth, Daily, # 90 tablet, Refills 1, Tot. Refills 1, Maintenance, 05/09/21 8:45:00 EDT, Route to Pharmacy Electronically, [facility], 165, cm, 04/11/21 7:42:00 EDT, Height, [...] Gm, 5 Refills, Acute, 05/10/21 11:59:00 EDT, [facility], 15, TAKE 17 GM BY MOUTH [...] 0 Refills, Maintenance, 02/09/20 10:05:00 EDT, Inhaler, [facility], 165, cm, 02/08/20 19:47:00 EDT, Height, 104.5, kg, 02/07/20 8:15:00 EDT, Dry Weight Start Date: 02/09/20 Stop Date: 03/10/20 Status: Ordered verapamil 240 mg/12 hours oral tablet, extended release 1 tablet = 240 mg, By Mouth, Daily at bedtime, # 90 tablet, 1 Refills, Maintenance, 05/09/21 8:45:00 EDT, SR Tablet, [facility], 165, cm, 04/11/21 7:42:00 EDT, Height, [...]
--- OUTSIDE RECORDS SUMMARY | 2023-07-16 14:54 | XMS_ITS | Continuity of Care Document ---
Author Name Unknown Organization [facility] Address [address] [place] [address]- Care Team Providers Care Medical Engineer Name Role Phone Maribel Marquez NP Primary Care Physician [place] [facility] [place] 02[place]27/21 [facility] [address] [place] [address]- Allergies, Adverse Reactions, Alerts Substance Reaction Severity [...] 0 Refills, Maintenance, 12/23/20 16:38:00 EST, Tablet, [facility], Partial fill [...] 0 Refills, Maintenance, 02/09/20 10:08:00 EDT, Tablet, [facility], 165, cm, 02/08/20 19:47:00 EDT, Height, 104.5, kg,02/07/20 8:15:00 EDT, Dry Weight Start Date: 02/09/20 Status: Ordered doxazosin 1 mg oral tablet 3 mg, 3, tablet, By Mouth, Daily at bedtime, # 90 tablet, Refills 0, Tot. Refills 0, Maintenance, 07/22/20 18:41:00 EDT, Route to Pharmacy Electronically, [facility], 163.5, cm, 07/22/20 18:29:00 EDT, Height, 102.5, kg, 07/18/20 21:04:00 EDT... Start Date: 07/22/20 Status: Ordered ferrous sulfate 325 mg oral enteric coated tablet 325 mg, 1, tablet, By Mouth, Daily, # 30 tablet, Refills 0, Tot. Refills 0, Maintenance, 12/23/20 15:38:00 EST, Route to Pharmacy Electronically, [facility], Partial fill upon patient request if the prescription is for a schedule II opioid d... Start Date: 12/23/20 Status: Ordered Flovent HFA 110 mcg/inh inhalation aerosol 2 puffs = 220 mcg, Inhalation, 2 times a day, # 1 each, 0 Refills, Maintenance, 12/23/20 15:38:00 EST, Aerosol, [facility], 162, cm, 12/23/20 10:43:00 EST, Height, 122.1, kg, 12/21/20 16:25:00 EST, Dry Weight Start Date: 12/23/20 Status: Ordered Haldol Decanoate decanoate 100 mg/ml injectable solution = 100 mg, Intramuscular, Every 28 days, last dose given on 09/17/2020. Next due 10/15/20., # 1 each, 0Refills, Soft Stop, 07/22/20 18:42:00 EDT, Solution, [facility], 163.5, cm, 07/22/20 18:29:00 EDT, Height, 102.5, kg, 07/18/20 21:04:00 EDT,... Start Date: 07/22/20 Status: Ordered lisinopril 5 mg oral tablet 5 mg, 1, tablet, By Mouth, Daily, # 30 tablet, Refills 0, Tot. Refills 0, Maintenance, 02/09/20 10:10:00 EDT, Route to Pharmacy Electronically, [facility], 165, cm, 02/08/20 19:47:00 EDT, Height, [...] 0 Refills, Maintenance, 12/23/20 16:38:00 EST, Tablet, [facility], Partial fill upon patient request if the prescription is for a schedule II opioid drug., 162, cm, 12/23/20 15:59:00 EST... Start Date: 12/23/20 Stop Date: 01/22/21 Status: Ordered montelukast 10 mg oral tablet 10 mg, 1, tablet, By Mouth, Daily, # 30 tablet, Refills 0, Tot. Refills 0, Maintenance, 02/09/20 10:11:00 EDT, Route to Pharmacy Electronically, [facility], 165, cm, 02/08/20 19:47:00 EDT, Height, 104.5, kg, 02/07/20 8:15:00 EDT, Dry Weight Start Date: 02/09/20 Status: Ordered norethindrone 0.35 mg oral tablet 1 tablet = 0.35 mg, By Mouth, Daily, # 30 tablet, 0 Refills, Maintenance, 02/09/20 10:07:00 EDT, Tablet, [facility], 165, cm, 02/08/20 19:47:00 EDT, Height, [...] Refills, Maintenance, 12/23/20 15:38:00 EST, REC Powder, [facility], Partial [...] 0 Refills, Maintenance, 02/09/20 10:05:00 EDT, Inhaler, [facility], 165, cm, 02/08/20 19:47:00 EDT, Height, 104.5, kg, 02/07/20 8:15:00 EDT, Dry Weight Start Date: 02/09/20 Stop Date: 03/10/20 Status: Ordered verapamil 240 mg/12 hours oral tablet, extended release 1 tablet = 240 mg, By Mouth, Daily at bedtime, # 30 tablet, 0 Refills, Maintenance, 02/09/20 10:14:00 EDT, SR Tablet, [facility], 165, cm, 02/08/20 19:47:00 EDT, Height, [...]
--- OUTSIDE RECORDS SUMMARY | 2023-07-16 14:54 | XMS_ITS | Continuity of Care Document ---
Author Name Unknown Organization [facility] ter Address [address] [place] [id number]- Care Team Providers Care Paper Guillotine Operator Name Role Phone Maribel Marquez NP Primary Care Physician Encounter [facility] Date(s): 01/31/22 - 01/31/[address] [address]- Discharge Disposition: A-D/C Home Attending Physician: Juventino [...] tablet, 0 Refills, Maintenance, 01/04/22 11:12:00 EDT, [facility], Partial fill upon patient request if [...] 02/04/22 14:09:00 EDT, 01/30/22 14:09:00 EDT, Capsule, [facility], Partial fill upon patient request if [...] a day, # 12 Gm, 2 Refills, [facility], 165, cm, 12/19/21 10:41:00 EST, Height, [...] 04/04/22 12:34:00 EDT, 01/04/22 12:34:00 EDT, Tablet, [facility], Partial fill upon patient request if the prescription is f... Start Date: 01/04/22 Stop Date: 04/04/22 Status: Ordered metFORMIN 500 mg oral tablet 1 each = 500 mg, By Mouth, 2 times a day, # 180 each, 1 Refills, Maintenance, 05/09/21 8:43:00 EDT,Tablet, [facility], Partial fill upon patient request if the prescription is for a schedule II opioid drug., 165, cm, 04/11/21 7:42:00 EDT, H... Start Date: 05/09/21 Stop Date: 11/05/21 Status: Ordered MiraLax oral powder for reconstitution = 17 Gm, By Mouth, 2 times a day, PRN Constipation, dissolve in water before taking, # 255 Gm, 0 Refills, Acute 02/13/22 14:30:00 EDT, 01/30/22 14:10:00 EDT, REC Powder, [facility], Partialfill upon patient request if the [...] 01/04/22 11:12:00 EDT, Route to Pharmacy Electronically, [facility], 165, cm, 12/19/21 10:41:00 EST, Height, 103, kg, 11/26/21 8:59:00 EST, . Start Date: 01/04/22 Status: Ordered naproxen 500 mg oral tablet 1 tablet = 500 mg, By Mouth, 2 times a day, PRN Pain , Moderate, for 14 days, with food, # 28 tablet, 0 Refills, Acute 02/02/22 14:24:00 EDT, 01/19/22 14:24:00 EDT, Tablet, [facility], Partial fill upon patient request if the prescription is... Start Date: 01/19/22 Stop Date: 02/02/22 Status: Ordered nicotine 21 mg/24 hr transdermal film, extended release 1 patch, Topically, Daily, for 30 days, # 30 patch, 0 Refills, Acute 02/18/22 14:31:00 EDT, 01/19/22 14:31:00 EDT, Patch, [facility], Partial fill upon patient request if the prescription is for a schedule II opioid drug., 1 patch Topically... Start Date: 01/19/22 Stop Date: 02/18/22 Status: Ordered pantoprazole 40 mg oral delayed release tablet 1 tablet = 40 mg, By Mouth, Daily, Maintenance, 01/30/22 13:58:00 EDT, EC Tablet Start Date: 01/30/22 Status: Ordered prazosin 1 mg oral capsule 4 mg, Capsule, By Mouth, 01/31/22 21:19:00 EDT Start Date: 01/31/22 Stop Date: 01/31/22 Status: Completed prazosin 1 mg oral capsule 4 mg, 4, capsule, By Mouth, Daily at bedtime, # 120 capsule, Refills 5, Tot. Refills 5, Maintenance, 01/19/22 10:48:00 EDT, Route to Pharmacy Electronically, [facility], Partial fill upon patient request if [...] Refills, Maintenance, 05/09/21 8:45:00 EDT, SR Tablet, [facility], 165, cm, 04/11/21 7:42:00 EDT, Height, [...] 2 Oxygen Saturation [94-100 %] 98 % (01/31/22 7:07 PM) Pulse Rate [55-90 bpm] 100 bpm *H* (01/31/22 7:07 PM) Blood Pressure [90-138/55-84 mm Hg] 125/ 80mm Hg (01/31/22 11:19 PM) 108/89mm Hg (01/31/22 7:07 PM) Respiratory Rate [16-30 br/min] 20 br/mi n (01/31/22 7:07 PM) Temperature [96.8-100.4 DegF] 98.3 DegF (01/31/22 7:07 PM) Mode of Delivery (Oxygen) Room air (01/31/22 7:07 PM) Blood pressure sites Arm, right (01/31/22 7:07 PM) Temperature Route Oral (01/31/22 7:07 PM) Social History Social History Type Response Smoking Status 10 or more cigarette s (1/2 pack or more)/day in last 30 days; Type: Cigarettes; Other: Reports smoking 1/2-1 packs/day, ending on level of stress; Started at age: 25; entered on: 12/31/20 Sex
--- OUTSIDE RECORDS SUMMARY | 2023-07-16 14:54 | XMS_ITS | Continuity of Care Document ---
Author Name Unknown Organization [facility] ter Address [address] [place] [id number]- Care Team Providers Care Pathology Teacher Name Role Phone Maribel Marquez NP Primary Care Physician [place] [facility] [place] 09/04/22 - 09/04/[address] [address]- Encounter Diagnosis Suicidal ideations(Final) - 09/04/22 Auditory hallucinations(Final) - 09/04/22 Discharge Disposition: A-D/C Home Attending Physician: Skylar [...] tablet, 1 Refills, Maintenance, 07/24/22 15:17:00 EDT, [facility], 165.2, cm, 07/19/22 10:30:00 EDT, Height, [...] a day, # 12 Gm, 1 Refills, [facility], 162, cm, 03/20/22 19:50:00 EDT, Height, [...] 07/21/22 14:07:00 EDT, Route to Pharmacy Electronically, [facility], Partial fill upon patient requestif the prescription is for a schedule II opioid janet. Start Date: 07/21/22 Stop Date: 04/17/23 Status: Ordered metFORMIN 500 mg oral tablet See Instructions, TAKE 1 EACH BY MOUTH 2 TIMES A DAY, # 60 tablet, 5 Refills, 08/07/22 10:55:00 EDT, [facility], 165.2, cm, 07/19/22 10:30:00 EDT, Height, [...] 01/04/22 11:12:00 EDT, Route to Pharmacy Electronically, [facility], 165, cm, 12/19/21 10:41:00 EST, Height, [...] oral capsule 4 mg, Capsule, By Mouth, 09/04/22 21:22:00 EST Start Date: 09/04/22 Stop Date: 09/04/22 Status: Completed prazosin 1 mg oral capsule 4 mg, 4, capsule, By Mouth, Daily at bedtime, # 120 capsule, Refills 5, Tot. Refills 5, Maintenance, 01/19/22 10:48:00 EDT, Route to Pharmacy Electronically, [facility], Partial fill upon patient request if the prescription is for a schedule... Start Date: 01/19/22 Status: Ordered ProAir HFA 90 mcg/inh inhalation aerosol 2 puffs, Inhalation, 4 times a day, PRN as needed for wheezing, # 6.7 Gm, 1 Refills, Maintenance, 06/23/22 16:17:00 EDT, Aerosol, [facility], Partial fill upon patient request if [...] 07/28/22 7:45:00 EDT, Route to Pharmacy Electronically, [facility], 165.2, cm, 07/19/22 10:30:00 EDT, Height, [...] Refills, Maintenance, 05/09/21 8:45:00 EDT, SR Tablet, [facility], 165, cm, 04/11/21 7:42:00 EDT, Height, 102.6, kg, 02/12/21 12:14:00 EDT, Dry Weight Start Date: 05/09/21 Status: Ordered Verapamil SR Tablet 240 mg, SR Tablet, By Mouth, 09/04/22 21:23:00 EST Start Date: 09/04/22 Stop Date: 09/04/22 Status: Completed Problem List Condition Confirmation Course Effective Dates [...] 3 Oxygen Saturation [94-100 %] 100 % (09/04/22 8:20 PM) 98 % (09/04/22 6:10 PM) 97 % (09/04/22 6:04 PM) Pulse Rate [55-90 bpm] 85 bpm (09/04/22 9:50 PM) 83 bpm (09/04/22 8:20 PM) 98 bpm *H* (09/04/22 6:10 PM) Blood Pressure [90-138/55-84 mm Hg] 150/75mm Hg *H* (09/04/22 9:50 PM) 150/70mm Hg *H* (09/04/22 9:50 PM) 153/99mm Hg *H* (09/04/22 8:20 PM) Respiratory Rate [16-30 br/min] 16 br/min (09/04/22 6:10 PM) Temperature [96.8-100.4 DegF] 98.1 DegF (09/04/22 8:20 PM) 97.6 DegF (09/04/22 6:10 PM) Mode of Delivery (Oxygen) Room air (09/04/22 6:10 PM) Room air (09/04/22 6:04 PM) Blood pressure sites Arm, left (09/04/22 6:10 PM) Temperature Route Oral (09/04/22 8:20 PM) Oral (09/04/22 6:10 PM) Social History Social History Type Response Smoking Status 10 or more cigarette s (1/2 pack or more)/day in last 30 days; Other: 1PPD; entered on: 07/19/22 Sex Note * Sekou LE, Ros Miles: PERFORM, SIGN, VERIFY Event Display: Patient Education Handout Authored Date: [id number] Patient Care team information Care Team Personnel Name: Rudi Ruiz RN Position: [facility] ED RN W/OE and Tasks Member Role: Primary Care Nurse Name: Alicja Riggs RN Position: [facility] RN Member Role: Primary Care Nurse Name: Rso Fu RN Position: [facility] RN Member Role: Primary Care Nurse Name: Hilda Mccabe RN Position: [facility] RN Member Role: Primary Care Nurse Name: Rosana Kearney RN Position: [facility] AMB Nurse Member Role: Primary Care Nurse Name: Wil Flood RN Position: [facility] RN Member Role: Primary Care Nurse Name: Gagandeep Sheldon RN Position: [facility] RN Member Role: Primary Care Nurse Name: Chip Morton Position: [facility] Outreach Member Role: Lifetime Consulting Physician Name: Alba Daily RN Position: [facility] RN Member Role: Primary Care Nurse Name: Maribel Marquez NP Position: [facility] PCO Associate Professional Member Role: PCP Address: Address: [address] [place] [address]- Name: Jose Ramirez RN Position: [facility] RN Member Role: Primary Care Nurse Name: Brittany Butts RN Position: [facility] AMB Nurse Member Role: Primary Care Nurse Name: Mary Sánchez RN Position: [facility] RN Member Role: Primary Care Nurse Name: Shama Rosado RN Position: [facility] RN Member Role: Primary Care Nurse Name: Jackie Snyder RN Position: [facility] RN Member Role: Primary Care Nurse Name: Jay Burks NP Position: Reference Physician Member Role: Primary Care Nurse Address: Address: [address] [place] [address] [facility] [place] [address]- Name: Parvez Kaba MD Position: [facility] Renal MD Member Role: Lifetime Consulting Physician Address: Address: [address] [place] [address] [facility] [place] [address]- Name: Yoana Ledezma RN Position: [facility] RN Member Role: Primary Care Nurse Name: Mirna Paul RN Position: [facility] OB RN Member Role: Primary Care Nurse Name: Latonya Rahman RN Position: [facility] Onco RN Member Role: Primary Care Nurse Name: Claudia Presley RN Position: [facility] RN Member Role: Primary Care Nurse Name: Iris Villa RN Position: [facility] Hospital Marine Water Tender Member Role: Primary Care Nurse Name: Cecille Blanco RN Position: [facility] ED RN W/OE and Tasks Member Role: Patient Care Provider Name: Ros Sapp MD Position: [facility] Resident Member Role: Resident Address: Address: [address] [place] [address]- Name: Carolina Reeves Position: [facility] ED TA [facility] Member Role: Pigment Grinder Name: Skylar Carvalho MD Position: [facility] Resident Member Role: Admitting Physician Address: Address: [address] [place] [id number]- Care Team Related Persons Name: LISBETH- RESEARCH INSTRUMENTATION TECHNICIANINDRA Address: home [address] [place] [address] Name: DIRECTOR INSTRUMENTATIONGREGG Address: home [address] [place] [address] Name: CARLOS PAZ Address: home [address] [place] [address]
--- OUTSIDE RECORDS SUMMARY | 2023-07-16 14:54 | XMS_ITS | Continuity of Care Document ---
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 Name Role Phone Maribel Marquez NP Primary Care Physician [phone] Encounter [facility] [place] Date(s): 10/13/22 - 10/14/[address] [address]- Discharge Disposition: A-D/C Home Attending Physician: Tiffanie Camacho MD Admitting Physician: Tiffanie Camacho MD Referring Physician: Not on Staff, Referring MD Allergies, Adverse Reactions, Alerts Substance Reaction Severity Status codeine Active sulfa drugs Active lithium 1 Active penicillin Active predniSONE [...] Russel rded influenza virus vaccine, inactivated 07/17/07 Rsusel rded influenza virus vaccine, inactivated 07/23/06 Russel [...] tablet, 1 Refills, Maintenance, 07/24/22 15:17:00 EDT, [facility], 165.2, cm, 07/19/22 10:30:00 EDT, Height, [...] 04/11/21 9:22:00 EDT, Route to Pharmacy Electronically, [facility], Partial fill upon patient request if the prescription is for a schedule II opioid dr... Start Date: 04/11/21 Stop Date: 01/06/22 Status: Ordered Flovent HFA 110 mcg/inh inhalation aerosol 2 puffs, Inhalation, 2 times a day, # 12 Gm, 1 Refills, [facility], 162, cm, 03/20/22 19:50:00 EDT, Height, [...] 07/21/22 14:07:00 EDT, Route to Pharmacy Electronically, [facility], Partial fill upon patient requestif the prescription is for a schedule II opioid kaela... Start Date: 07/21/22 Stop Date: 04/17/23 Status: Ordered metFORMIN 500 mg oral tablet See Instructions, TAKE 1 EACH BY MOUTH 2 TIMES A DAY, # 60 tablet, 5 Refills, 08/07/22 10:55:00 EDT, [facility], 165.2, cm, 07/19/22 10:30:00 EDT, Height, [...] 10/04/22 15:29:00 EST, Route to Pharmacy Electronically, [facility], 157, cm, 10/01/22 6:31:00 EST, [...] 01/19/22 10:48:00 EDT, Route to Pharmacy Electronically, [facility], Partial fill upon patient request if the prescription is for a schedule... Start Date: 01/19/22 Status: Ordered ProAir HFA 90 mcg/inh inhalation aerosol 2 puffs, Inhalation, 4 times a day, PRN as needed for wheezing, # 6.7 Gm, 1 Refills, Maintenance, 06/23/22 16:17:00 EDT, Aerosol, [facility], Partial fill upon patient request if [...] 07/28/22 7:45:00 EDT, Route to Pharmacy Electronically, [facility], 165.2, cm, 07/19/22 10:30:00 EDT, Height, [...] Refills, Maintenance, 05/09/21 8:45:00 EDT, SR Tablet, [facility], 165, cm, 04/11/21 7:42:00 EDT, Height, [...] Exam Date Time Procedure Performing Provider Status 10/14/22 10:17 AM Chest 2 Views Frontal and Lat Kerry Ramachandran; Auth (Verified) Notes: (Chest 2 Views Frontal and Lat) Reason For Exam: Cough RESULT: Chest 2 Views Frontal and Lat Chest 2 Views Frontal and Lat Hx of Present Illness: Patient reports bilat leg weakness causing falls x 3 today. Also, has dizziness and nausea. Has pain in right foot. Discharged today from [facility] in [place], [place].; Reason: Cough; Clinical Question(s): Pneumonia COMPARISON: 03/20/2022, 02/08/2022, 10/02/2021 CT scan 02/08/2022 FINDINGS: LINES AND TUBES: None. LUNGS AND PLEURA: Unchanged chronic or recurrent small bilateral pleural effusions. Clear lungs. No edema or pneumonia. No pneumothorax. HEART, MEDIASTINUM AND HENRY: Heart is normal in size. Normal mediastinal and hilar contour. BONES AND SOFT TISSUES: Normal. IMPRESSION: Unchanged chronic or recurrent small pleural effusions but otherwise normal. WSN: [id number] Ordering Physician: Tiffanie Camacho Dictated By: Jarvis Butler MD Dictated Date/Time: 10/14/22 10:23 a Reviewed By: Jarvis Butler MD Signed By: Jarvis Butler MD Signed Date/Time: 10/14/22 10:23 am Transcribed By: DAVIS Transcribed Date/Time: 10/14/22 10:21 am * Exam Date Time Procedure Performing Provider Status 10/14/22 10:17 AM Knee 1 or 2 Views Left Autumn Dave; Auth (Verified) Notes: (Knee 1 or 2 Views Left) Reason For Exam: Pain RESULT: Knee 1 or 2 Views Left Left knee, 2 views Hx of Present Illness: Patient reports bilat leg weakness causing falls x 3 today. Also, has dizziness and nausea. Has pain in right foot. Discharged today from [facility] in [place], [place].; Reason: Pain; Clinical Question(s): Fracture COMPARISON: None. FINDINGS: There is no evidence of acute or healing fracture, dislocation or bone lesion. No arthritic changes. No osteochondral defects or intra-articular loose bodies. No evidence of joint effusion. IMPRESSION: Normal. WSN: [id number] Ordering Physician: Tiffanie Camacho Dictated By: Jarvis Butler MD Dictated Date/Time: 10/14/22 10:21 a Reviewed By: Jarvis Butler MD Signed By: Jarvis Butler MD Signed Date/Time: 10/14/22 10:21 am Transcribed By: DAVIS Transcribed Date/Time: 10/14/22 10:21 am * Exam Date Time Procedure Performing Provider Status 10/13/22 11:55 PM Tibia/Fibula 2 Views Right Rosie Aaron; Auth (Verified) Notes: (Tibia/Fibula 2 Views Right) Reason For Exam: Trauma RESULT: Tibia/Fibula 2 Views Right Tibia/Fibula 2 Views Right CLINICAL INDICATION: Hx of Present Illness: Patient reports bilat leg weakness causing falls x 3 today. Also, has dizziness and nausea. Has pain in right foot. Discharged today from [place], [place].; Reason: Trauma; Clinical Question(s): Fracture COMPARISONS: None TECHNIQUE: AP and lateral views of the right tibia and fibula were obtained. FINDINGS: There is no fracture or dislocation. Articulations at the knee and ankle are anatomic. No retained foreign body. IMPRESSION: No tibial or fibular fracture. WSN: [id number] Ordering Physician: Eileen Arredondo Dictated By: Donavon Robert MD Dictated Date/Time: 10/14/22 0:03 am Reviewed By: Donavon Robert MD Signed By: Donavon Robert MD Signed Date/Time: 10/14/22 0:03 am Transcribed By: DAVIS Transcribed Date/Time: 10/14/22 0:03 am * Exam Date Time Procedure Performing Provider Status 10/13/22 11:55 PM Foot Min 3 Views Right Rosie Aaron; Auth (Verified) Notes: (Foot Min 3 Views Right) Reason For Exam: Trauma RESULT: Foot Min 3 Views Right Ankle Min 3 Views Right, Foot Min 3 Views Right CLINICAL INDICATION: Hx of Present Illness: Patient reports bilat leg weakness causing falls x 3 today. Also, has dizziness and nausea. Has pain in right foot. Discharged today from [place], [place].; Reason: Trauma; Clinical Question(s): Fracture COMPARISONS: None TECHNIQUE: 3 views of the right foot. 3 views of the right ankle. FINDINGS: There is no fracture or dislocation. The ankle mortise is not widened. MTP and IP joint space heights are maintained. The Lisfranc joint is normally aligned. Incidental accessory navicular. No retained foreign body is identified. Hindfoot midfoot alignment is normal. There is a plantar calcaneal heel spur with mild soft tissue swelling along the plantar aspect of the heel. Correlate clinically for findings of plantar fasciitis. IMPRESSION: No fracture or dislocation. Plantar calcaneal heel spur with adjacent soft tissue swelling. Correlate clinically for findings of plantar fasciitis. WSN: [id number] Ordering Physician: Eileen Arredondo Dictated By: Donavon Robert MD Dictated Date/Time: 10/14/22 0:03 am Reviewed By: Donavon Robert MD Signed By: Donavon Robert MD Signed Date/Time: 10/14/22 0:03 am Transcribed By: DAVIS Transcribed Date/Time: 10/14/22 0:00 am * Exam Date Time Procedure Performing Provider Status 10/13/22 11:55 PM Ankle Min 3 Views Right Rosie Bender; Auth (Verified) Notes: (Ankle Min 3 Views Right) Reason For Exam: Trauma RESULT: Ankle Min 3 Views Right Ankle Min 3 Views Right, Foot Min 3 Views Right CLINICAL INDICATION: Hx of Present Illness: Patient reports bilat leg weakness causing falls x 3 today. Also, has dizziness and nausea. Has pain in right foot. Discharged today from [place], [place].; Reason: Trauma; Clinical Question(s): Fracture COMPARISONS: None TECHNIQUE: 3 views of the right foot. 3 views of the right ankle. FINDINGS: There is no fracture or dislocation. The ankle mortise is not widened. MTP and IP joint space heights are maintained. The Lisfranc joint is normally aligned. Incidental accessory navicular. No retained foreign body is identified. Hindfoot midfoot alignment is normal. There is a plantar calcaneal heel spur with mild soft tissue swelling along the plantar aspect of the heel. Correlate clinically for findings of plantar fasciitis. IMPRESSION: No fracture or dislocation. Plantar calcaneal heel spur with adjacent soft tissue swelling. Correlate clinically for findings of plantar fasciitis. WSN: [id number] Ordering Physician: Eileen Arredondo Dictated By: Donavon Robert MD Dictated Date/Time: 10/14/22 0:03 am Reviewed By: Donavon Robert MD Signed By: Donavon Robert MD Signed Date/Time: 10/14/22 0:03 am Transcribed By: DAVIS Transcribed Date/Time: 10/14/22 0:00 am Vital Signs Most recent to oldest [Reference Range]: 1 2 3 Oxygen Saturation [94-100 %] 100 % (10/14/22 1:41 PM) 97 % (10/14/22 10:03 AM) 100 % (10/14/22 6:04 AM) Pulse Rate [55-90 bpm] 104 bpm *H* (10/14/22 1:41 PM) 94 bpm *H* (10/14/22 10:03 AM) 101 bpm *H* (10/14/22 6:04 AM) Blood Pressure [90-138/55-84 mm Hg] 147/90mm Hg *H* (10/14/22 1:41 PM) 139/78mm Hg *H* (10/14/22 10:03 AM) 152/97mm Hg *H* (10/14/22 6:04 AM) Respiratory Rate [16-30 br/min] 16 br/min (10/14/22 1:41 PM) 20 br/min (10/14/22 10:03 AM) 18 br/min (10/13/22 9:35 PM) Temperature [96.8-100.4 DegF] 98 DegF (10/14/22 1:41 PM) 98.3 DegF (10/14/22 10:03 AM) 97.6 DegF (10/14/22 6:04 AM) Mode of Delivery (Oxygen) Room air (10/14/22 1:41 PM) Room air (10/14/22 10:03 AM) Room air (10/14/22 6:04 AM) Blood pressure sites Arm, left (10/14/22 1:41 PM) Arm, right (10/14/22 10:03 AM) Arm, left (10/14/22 6:04 AM) Temperature Route Oral (10/14/22 1:41 PM) Oral (10/14/22 10:03 AM) Oral (10/14/22 6:04 AM) Social History Social History Type Response Smoking Status 10 or more cigarette s (1/2 pack or more)/day in last 30 days; Other: 1PPD; entered on: 07/19/22 Sex EKG study * Event Display: ECG 12-Lead Authored Date: Please click on pdf link to open report * Event Display: ECG 12-Lead Authored Date: Ventricular Rate: 105 BPM Atrial Rate: 105 BPM P-R Interval: 174 ms QRS Duration: 86 ms Q-T Interval: 358 ms QTC Calculation(Bazett): 473 ms P [place]: 56 degrees R [place]: 48 degrees T [place]: 55 degrees Sinus tachycardia Otherwise normal ECG When compared with ECG of 26-SEP-2022 23:10, No significant change was found Confirmed by MARISABEL ELDRIDGE MD ([id number]) on 10/14/2022 3:53:26 PM Hay: MARISABEL ELDRIDGE MD Note * Tiffanie Camacho MD: PERFORM, SIGN, VERIFY Event Display: Patient Education Handout Authored Date: * Tiffanie Camacho MD: PERFORM Event Display: Patient Education Leaflets Authored Date: Acute Pain, Uncertain Cause ?? [id number] Acute Pain, Uncertain Cause Pain can be caused by many conditions that range from very minor to very serious. In some cases, though, pain comes and goes with no apparent cause. We were not able to find the exact cause for your pain. At this time there is no sign of any serious illness causing your pain. More tests may be needed to determine the cause. In many cases, pain like this goes away by itself. Home care Take any medicines as prescribed. If another medicine was not prescribed for pain, you can take an yofo-qjo-hsowcbh pain medicine such as ibuprofen or acetaminophen. Use these as directed on the label. Talk with your healthcare provider before taking mbth-lfa-ivnulqx pain medicine if you have a history of kidney or liver problems or bleeding in the stomach, or have heart disease. ?? Follow-up care Follow up with your??healthcare provider??or our staff as directed. ?? When to seek medical advice Call your healthcare provider for any of the following: ??? Pain changes in pattern ??? Pain doesn't lessen or gets worse ??? New symptoms appear ??? Fever??of 100.4??F (38??C) or higher,??or as directed by your healthcare provider ?? Last Reviewed Date: 2021 ?? The [employer]. All rights reserved. This information is not intended as a substitute for professional medical care. Always follow your healthcare professional's instructions. ?? * Doug LE, Tiffanie Nguyen: PERFORM Event Display: Patient Education Leaflets Authored Date: [id number] Ankle Sprain (Adult) ?? [id number] Ankle Sprain (Adult) An ankle sprain is a stretching or tearing of the ligaments that hold the ankle joint together. There are no broken bones. An ankle sprain is a common injury for both children and adults. It happens when the ankle turns, twists, or rolls in an awkward way. This can be caused by a sports injury. Or it can happen from doing something as simple as stepping on an uneven surface. Ligaments are made of tough connective tissue. Normally, ligaments stretch a certain amount and then go back to their normal place. A sprain happens when a ligament is forced to stretch more than thenormal amount. A severe sprain can actually tear the ligaments. If you have a severe sprain, you may have felt or heard something like a pop when you were injured. Ankle sprains are given a grade depending on whether they are mild, moderate, or severe: ??? Grade 1 sprain. A mild sprain with minor stretching and damage to the ligament. ??? Grade 2 sprain. A moderate sprain where the ligament is partly torn. ??? Grade 3 sprain. The most severe kind of sprain. The ligament is completely torn. Most sprains??take about 4 to 6 weeks to heal. A severe sprain can take several months to recover. Your healthcare provider may order X-rays to be sure you don???t have a fracture, or broken bone. The injured area will feel sore. Swelling and pain may make it hard to walk. You may need crutches if walking is painful. Or your provider may have you use a cast boot or air splint. This will dependon the grade of ankle sprain that you have. Home care ??? For a Grade 1 sprain, use RICE (rest, ice, compression, and elevation): ??? Rest your ankle. Don???t walk on it. ??? Ice should be used right away to help control swelling. Place an ice pack overthe injured area for 20 minutes. Do this every??3 to 6??hours??for the first??24 to 48 hours.??Keepusing ice packs to ease pain and swelling as needed. To make an ice pack, put ice cubes in a plastic??bag that seals at the top. Wrap the bag in a??clean, thin??towel or cloth. Never put ice or an ice pack directly on the skin. The ice pack can be put right on the cast, bandage, or splint. As the ice melts, be careful that the cast, bandage, or splint doesn???t get wet. If you have a boot, open it to apply an ice pack, unless told otherwise by your provider. ??? Compression devices help to control swelling. They also keep the ankle from moving and support your injured ankle. These devices include dressings, elastic bandages, and wraps. ??? Elevate or raise your ankle above the level of yourheart when sitting or lying down. This is very important for the first 48 hours. ??? Follow the RICE guidelines for a Grade 2 sprain. This type of sprain will take longer to heal. Your provider may have you wear a splint, cast, or brace to keep your ankle from moving. ?If you have a Grade 3 sprain, you are at risk for long-term ankle instability. In rare cases, surgery may be needed. Your provider may have you wear a short leg cast or a walking boot for 2 to 3 weeks. ??? After 48 hours, it may be helpful to apply heat??for 20 minutes several times a day. You can do this with a heating pad or warm compress. Or you may want to go back and forth between using ice and heat. Never apply heat directly to the skin. Always wrap the heating pad or warm compress in a clean, thin towel or cloth. ??? You may use??obme-iop-qabymws pain medicine??(NSAIDS or nonsteroidal anti-inflammatory drugs) to control pain, unless another pain medicine was prescribed. Talk with your provider before using these medicines if you have chronic liver or kidney disease, stomach ulcer or gastrointestinal bleeding, or if you take a blood thinner. ??? Follow any rehabilitation exercises your provider gives you.These can help you be more flexible and improve your balance and coordination. This is helpful in preventing long-term ankle problems. Prevention To help prevent ankle sprains, it???s important to have good strength, balance, and flexibility. Besure to: ??? Always warm up before you exercise or do something very active ??? Be careful when walking or running on uneven or cracked surfaces ??? Wear shoes that are in good condition and fit well??? Listen to your body???s signals to slow down when you are in pain or tired ?? Follow-up care Any X-rays you had today don???t show any broken bones, breaks, or fractures. Sometimes fractures don???t show up on the first X-ray. Bruises and sprains can sometimes hurt as much as a fracture. These injuries can take time to heal completely. If your symptoms don???t get better or they get worse,talk with your healthcare provider. You may need a repeat X-ray. Follow up with your healthcare provider, or as advised. Check for any warning signs listed below. ?? When to get medical advice Call your healthcare provider right away??if any of these occur: ??? Fever of 100.4 F (38 C) or higher, or as directed by your provider ??? Chills ??? The injury doesn???t seem to be healing ??? The swelling comes back ??? The cast or splint has a bad smell ??? The plaster cast or splint gets wet or soft ??? The fiberglass cast or splint gets wet and doesn't dry for 24 hours ??? Pain or swelling gets worse, or redness appears ??? Your toes become cold, blue, numb, or tingly ??? The skin is discolored (looks blue, purple, or sanchez), has blisters, or is irritated ??? You re-injure your ankle ?? Last Reviewed Date: 2021 ?? [id number] The Mobile Event Guide. All rights reserved. This information is not intended as a substitute for professional medical care. Always follow your healthcare professional's instructions. ?? * Doug LE, Tiffanie Nguyen: PERFORM Event Display: Patient Education Leaflets Authored Date: [id number] Lower Extremity Bruise ?? [id number] Lower Extremity Bruise You have a bruise (contusion) on a leg, knee, ankle, foot, or toe. Symptoms include pain, swelling,and skin discoloration. No bones are broken. This injury may take from a few days to a few weeks toheal. During that time, the bruise may change from red in color, to purple-blue, to green-yellow, to yellow-brown. Home care ??? Unless another medicine was prescribed, you can take acetaminophen, ibuprofen, or naproxen??to control pain. Talk with your healthcare provider before using these medicines if you have chronic liver or kidney disease or ever had a stomach ulcer or digestive bleeding. ??? Elevate the injured area to reduce pain and swelling.??As much as possible, sit or lie down with the injured arearaised about the level of your heart. It may help to sleep with a pillow under your leg to help raise it. This is especially important during the first 48 hours. ??? Ice the injured area to help reduce pain and swelling.??Apply an ice pack to the bruised area for 20 minutes every 1 to 2 hours the first day. Continue this 3 to 4 times a day until the pain and swelling goes away. To make an ice pack, put ice cubes in a plastic bag that seals at the top. Wrap the bag in a thin towel. Don't put icedirectly on your skin. ??? If crutches have been advised, don't bear full weight on the injured leguntil you can do so without pain. You may return to sports when you are able to put full weight andimpact on the injured leg without pain. ?? Follow up Follow up with your healthcare provider as advised. Call if you are not improving within the next??1 to 2 weeks. ?? When to get medical advice?? Call your healthcare provider right away if any of these occur: ??? Increased pain or swelling ??? Foot or toes become??cold, blue, numb, or tingly ??? Signs of infection:??warmth, fluid leaking, or increased redness or pain around the injury ??? Inability to move the injured area, or any joints below the injured area ??? Frequent bruising for unknown reasons ?? Last Reviewed Date: 2021 ?? [id number] The Mobile Event Guide. All rights reserved. This information is not intended as a substitute for professional medical care. Always follow your healthcare professional's instructions. ?? * CHAPARRO Diego S: TRANSCRIJarvis Lopez MD: VERIFY Event Display: Result: Authored Date: [id number] Chest 2 Views Frontal and Lat Hx of Present Illness: Patient reports bilat leg weakness causing falls x 3 today. Also, has dizziness and nausea. Has pain in right foot. Discharged today from [facility] in [place], [place].; Reason: Cough; Clinical Question(s): Pneumonia COMPARISON: 03/20/2022, 02/08/2022, 10/02/2021 CT scan 02/08/2022 FINDINGS: LINES AND TUBES: None. LUNGS AND PLEURA: Unchanged chronic or recurrent small bilateral pleural effusions. Clear lungs. No edema or pneumonia. No pneumothorax. HEART, MEDIASTINUM AND HENRY: Heart is normal in size. Normal mediastinal and hilar contour. BONES AND SOFT TISSUES: Normal. IMPRESSION: Unchanged chronic or recurrent small pleural effusions but otherwise normal. WSN: [id number] Ordering Physician: Tiffanie Camacho Dictated By: Jarvis Butler MD Dictated Date/Time: 10/14/22 10:23 a Reviewed By: Jarvis Butler MD Signed By: Jarvis Butler MD Signed Date/Time: 10/14/22 10:23 am Transcribed By: DAVIS Transcribed Date/Time: 10/14/22 10:21 am XR Knee - left 1 or 2 Views * Johnathon CIS S: TRANSCRIBE Jarvis Butler MD: VERIFY Event Display: Result: Authored Date: [id number] Left knee, 2 views Hx of Present Illness: Patient reports bilat leg weakness causing falls x 3 today. Also, has dizziness and nausea. Has pain in right foot. Discharged today from [facility] in [place], [place].; Reason: Pain; Clinical Question(s): Fracture COMPARISON: None. FINDINGS: There is no evidence of acute or healing fracture, dislocation or bone lesion. No arthritic changes. No osteochondral defects or intra-articular loose bodies. No evidence of joint effusion. IMPRESSION: Normal. WSN: [id number] Ordering Physician: Tiffanie Camacho Dictated By: Jarvis Butler MD Dictated Date/Time: 10/14/22 10:21 a Reviewed By: Jarvis Butler MD Signed By: Jarvis Butler MD Signed Date/Time: 10/14/22 10:21 am Transcribed By: DAVIS Transcribed Date/Time: 10/14/22 10:21 am XR Foot - right GE 3 Views * BHSPowerscribe , CIS S: TRANSCRIBE Donavon Robert MD: VERIFY Event Display: Result: Authored Date: Ankle Min 3 Views Right, Foot Min 3 Views Right CLINICAL INDICATION: Hx of Present Illness: Patient reports bilat leg weakness causing falls x 3 today. Also, has dizziness and nausea. Has pain in right foot. Discharged today from [place], [place].; Reason: Trauma; Clinical Question(s): Fracture COMPARISONS: None TECHNIQUE: 3 views of the right foot. 3 views of the right ankle. FINDINGS: There is no fracture or dislocation. The ankle mortise is not widened. MTP and IP joint space heights are maintained. The Lisfranc joint is normally aligned. Incidental accessory navicular. No retained foreign body is identified. Hindfoot midfoot alignment is normal. There is a plantar calcaneal heel spur with mild soft tissue swelling along the plantar aspect of the heel. Correlate clinically for findings of plantar fasciitis. IMPRESSION: No fracture or dislocation. Plantar calcaneal heel spur with adjacent soft tissue swelling. Correlate clinically for findings of plantar fasciitis. WSN: [id number] Ordering Physician: Eileen Arredondo Dictated By: Donavon Robert MD Dictated Date/Time: 10/14/22 0:03 am Reviewed By: Donavon Robert MD Signed By: Donavon Robert MD Signed Date/Time: 10/14/22 0:03 am Transcribed By: DAVIS Transcribed Date/Time: 10/14/22 0:00 am XR Ankle - right GE 3 Views * BHSPowerscdarlynbe , CIS S: TRANSCRIDonavon Pastor MD: VERIFY Event Display: Result: Authored Date: Ankle Min 3 Views Right, Foot Min 3 Views Right CLINICAL INDICATION: Hx of Present Illness: Patient reports bilat leg weakness causing falls x 3 today. Also, has dizziness and nausea. Has pain in right foot. Discharged today from [place], [place].; Reason: Trauma; Clinical Question(s): Fracture COMPARISONS: None TECHNIQUE: 3 views of the right foot. 3 views of the right ankle. FINDINGS: There is no fracture or dislocation. The ankle mortise is not widened. MTP and IP joint space heights are maintained. The Lisfranc joint is normally aligned. Incidental accessory navicular. No retained foreign body is identified. Hindfoot midfoot alignment is normal. There is a plantar calcaneal heel spur with mild soft tissue swelling along the plantar aspect of the heel. Correlate clinically for findings of plantar fasciitis. IMPRESSION: No fracture or dislocation. Plantar calcaneal heel spur with adjacent soft tissue swelling. Correlate clinically for findings of plantar fasciitis. WSN: [id number] Ordering Physician: Eileen Arredondo Dictated By: Donavon Robert MD Dictated Date/Time: 10/14/22 0:03 am Reviewed By: Donavon Robert MD Signed By: Donavon Robert MD Signed Date/Time: 10/14/22 0:03 am Transcribed By: DAVIS Transcribed Date/Time: 10/14/22 0:00 am XR Tibia and Fibula - right 2 Views * CHAPARRO Chan S: TRANSCRIDonavon Pastor MD: VERIFY Event Display: Result: Authored Date: [id number] Tibia/Fibula 2 Views Right CLINICAL INDICATION: Hx of Present Illness: Patient reports bilat leg weakness causing falls x 3 today. Also, has dizziness and nausea. Has pain in right foot. Discharged today from [place], [place].; Reason: Trauma; Clinical Question(s): Fracture COMPARISONS: None TECHNIQUE: AP and lateral views of the right tibia and fibula were obtained. FINDINGS: There is no fracture or dislocation. Articulations at the knee and ankle are anatomic. No retained foreign body. IMPRESSION: No tibial or fibular fracture. WSN: [id number] Ordering Physician: Eileen Arredondo Dictated By: Donavon Robert MD Dictated Date/Time: 10/14/22 0:03 am Reviewed By: Donavon Robert MD Signed By: Donavon Robert MD Signed Date/Time: 10/14/22 0:03 am Transcribed By: DAVIS Transcribed Date/Time: 10/14/22 0:03 am Patient Care team information Care Team Personnel Name: Rudi Ruiz RN Position: [facility] ED RN W/OE and Tasks Member Role: Primary Care Nurse Name: Alicja Riggs RN Position: [facility] RN Member Role: Primary Care Nurse Name: Ros Fu RN Position: [facility] RN Member Role: Primary Care Nurse Name: Hilda Mccabe RN Position: [facility] RN Member Role: Primary Care Nurse Name: Rosana Kearney RN Position: [facility] AMB Nurse Member Role: Primary Care Nurse Name: Wil Flood RN Position: [facility] RN Member Role: Primary Care Nurse Name: Gagandeep Sheldon RN Position: [facility] RN Member Role: Primary Care Nurse Name: Chip Morton Position: [facility] Outreach Member Role: Lifetime Consulting Physician Name: Alba Daily RN Position: [facility] RN Member Role: Primary Care Nurse Name: Maribel Marquez NP Position: [facility] PCO Associate Professional Member Role: PCP Address: Address: [address] [place] [address]- Name: Jose Ramirez RN Position: [facility] RN Member Role: Primary Care Nurse Name: Brittany Butts RN Position: [facility] AMB Nurse Member Role: Primary Care Nurse Name: Mary Sánchez RN Position: [facility] RN Member Role: Primary Care Nurse Name: Shama Rosado RN Position: [facility] RN Member Role: Primary Care Nurse Name: Jackie Snyder RN Position: [facility] RN Member Role: Primary Care Nurse Name: Jay Burks NP Position: Reference Physician Member Role: Primary Care Nurse Address: Address: [address] [place], [place] [id number] Clinical & [place] [address]- [place] Name: Parvez Kaba MD Position: [facility] Renal MD Member Role: Lifetime Consulting Physician Address: Address: [address] [place] [address] [facility] [place] [address]- [place] Name: Yoana Ledezma RN Position: [facility] RN Member Role: Primary Care Nurse Name: Mirna Paul RN Position: [facility] OB RN Member Role: Primary Care Nurse Name: Latonya Rahman RN Position: [facility] Onco RN Member Role: Primary Care Nurse Name: Claudia Presley RN Position: [facility] RN Member Role: Primary Care Nurse Name: Iris Villa RN Position: [facility] Hospital Professional Tutor Member Role: Primary Care Nurse [facility] Attending Position: [facility] ED Attendings Patient Name: Doug LE, Tiffanie Nguyen Position: [facility] ED Medicine MD Member Role: Admitting Physician Address: Address: [address] [place] [address]- Name: Nicole Reddy RN Position: [facility] ED RN W/OE and Tasks Member Role: Patient Care Provider Name: Radha Byrne Position: [facility] ED [facility] Member Role: Composite Bond Technician Care Team Related Persons Name: JO-ANN ROMANDATA REVIEWERINDRA Address: [address] [place] [address] Name: RELIEF OPERATORGREGG Address: [address] [place] [address] Name: CARLOS PAZ Address: [address] [place] [address]
--- OUTSIDE RECORDS SUMMARY | 2023-07-16 14:54 | XMS_ITS | Continuity of Care Document ---
Author Name Unknown Organization [facility] ter Address [address] [place] [address]- Care Team Providers Care Embedded Nurse Name Role Phone Maribel Marquez NP Primary Care Physician [place] [facility] [place]/17/23 - 03/18/[address] [address]- Encounter Diagnosis Suicidal ideation(Final) - 03/17/23 Discharge Disposition: A-D/C Home Attending Physician: Nathan [...] 10:33:00 EST, Inhaler, Route to Pharmacy Electronically, NCPDP_[id number], [facility], 163, cm, 11/16/22 9:43:00 EST, Height, 97.3,... Start Date: 11/16/22 Status: Ordered atorvastatin 10 mg oral tablet 1 tablet = 10 mg, By Mouth, Daily at bedtime, # 30 tablet, 0 Refills, Maintenance, 11/16/22 10:33:00 EST, Tablet, [facility], Partial fill upon patient request [...] 11/16/22 10:33:00 EST, Route to Pharmacy Electronically, [facility], Partial fill upon patientrequest if the [...] 0 Refills, Maintenance, 11/16/22 10:33:00 EST, Tablet, [facility], Partial fill upon patient request [...] 11/16/22 10:34:00 EST, Route to Pharmacy Electronically, [facility], Partial fill upon patient request if the prescription is for a schedule II opioid d... Start Date: 11/16/22 Stop Date: 08/13/23 Status: Ordered FLUoxetine 20 mg oral capsule 80 mg, 4, capsule, By Mouth, Daily in AM, # 120 capsule, Refills 0, Tot. Refills 0, Maintenance, 11/16/22 10:34:00 EST, Route to Pharmacy Electronically, [facility], Partial fill upon patient request [...] oral tablet 5 mg, Tablet, By Mouth, 03/18/23 9:00:00 EDT Start Date: 03/18/23 Stop Date: 03/18/23 Status: Completed lisinopril 5 mg oral tablet [...] 60 tablet, 1 Refills, Maintenance,02/22/23 10:08:00 EDT, [facility], 146, cm, 02/05/23 20:22:00 EDT, Height, [...] 0 Refills, Maintenance, 11/16/22 10:34:00 EST, Tablet, [facility], Partial fill upon [...] 0 Refills, Maintenance, 11/16/22 10:34:00 EST, Tablet, [facility], Partial fill upon patient request [...] 11/16/22 10:34:00 EST, Route to Pharmacy Electronically, [facility], Partial fill upon patient request if the prescription is for a schedule I... Start Date: 11/16/22 Status: Ordered montelukast 10 mg oral tablet Refills 0, Maintenance, 01/06/23 18:05:00 EDT, Partial fill upon patient request if the prescription is for a schedule II opioid drug. Start Date: 01/06/23 Status: Ordered nystatin topical [id number] u/gm cream 1 application, Topically, 2 times a day, # 15 Gm, 0 Refills, Maintenance, 01/05/23 15:04:00 EDT, Cream, [facility], Partial fill upon patient request if the prescription is for a schedule II opioid drug., 1 application Topically 2 times a da... Start Date: 01/05/23 Status: Ordered nystatin topical [id number] u/gm cream 0 Refills, Maintenance, 01/06/23 18:05:00 [...] 11/16/22 10:34:00 EST, Route to Pharmacy Electronically, [facility], Partial fill upon patient request [...] Maintenance,11/16/22 10:34:00 EST, Route to Pharmacy Electronically, [facility], Partial fill upon patient request [...] Range]: 1 2 3 Height 164 cm (03/17/23 11:13 PM) 164 cm (03/17/23 8:55 PM) 164 cm (03/17/23 7:18 PM) Oxygen Saturation [94-100 %] 97 % (03/18/23 11:19 AM) 98 % (03/17/23 11:13 PM) 99 % (03/17/23 7:18 PM) Pulse Rate [55-90 bpm] 84 bpm (03/18/23 11:19 AM) 81 bpm (03/17/23 11:13 PM) 91 bpm *H* (03/17/23 7:18 PM) Blood Pressure [90-138/55-84 mm Hg] 157/100mm Hg *H* (03/18/23 11:19 AM) 130/78mm Hg (03/18/23 9:42 AM) 122/66mm Hg (03/17/23 11:13 PM) Respiratory Rate [16-30 br/min] 18 br/min (03/18/23 11:19 AM) 18 br/min (03/17/23 11:13 PM) 16 br/min (03/17/23 7:15 PM) Temperature [96.8-100.4 DegF] 98.6 DegF (03/18/23 11:19 AM) 97.5 DegF (03/17/23 11:13 PM) 99.1 DegF (03/17/23 7:18 PM) Mode of Delivery (Oxygen) Room air (03/18/23 11:19 AM) Room air (03/17/23 11:13 PM) Room air (03/17/23 7:18 PM) Blood pressure sites Arm, left (03/18/23 11:19 AM) Arm, right (03/17/23 11:13 PM) Arm, left (03/17/23 7:18 PM) Temperature Route Oral (03/18/23 11:19 AM) Oral (03/17/23 11:13 PM) Oral (03/17/23 7:18 PM) Dry Weight 103 kg (03/17/23 11:13 PM) 103 kg (03/17/23 8:55 PM) 103 kg (03/17/23 7:18 PM) Dry Weight Obtained Via Bed scale (03/17/23 7:18 PM) Social History Social History Type Response Smoking Status 10 or more cigarette s (1/2 pack or more)/day in last 30 days; Type: Cigarettes; Other: Reports smoking 1/2-1 packs/day, ending on level of stress; Started at age: 25; entered on: 11/18/22 Sex Note * Nathan Jhaveri DO: PERFORM Event Display: Patient Education Leaflets Authored Date: [id number] Depression ?? [id number] Depression Depression is a very common mental [...] medicines you take. This includes prescription and obmq-mrh-dkaidtx medicines. It includes vitamins and herbal supplements. [...] An online chat option is also available. Realm is free and available 07/05. 988 counselors [...] help ?? Last Reviewed Date: 2022 ?? [phone] [employer]. All rights reserved. This information is not [...] Associate Professional Member Role: PCP Address: Address: [address] [place] [address]- Name: Jose Ramirez RN [facility] Role: Primary Care Nurse Address: Address: [address] [place] [address] Clinical & [place] [address]- [place] Name: Parvez Kaba MD Position: [facility] Renal MD Member Role: Lifetime Consulting Physician Address: Address: [address] [place] [address] [facility] [place] [address]- [place] Name: Mirna Paul RN [facility]: [facility] [...] RN Position: [facility] Hospital Pmo Project Manager Member Role: Primary Care Nurse Name: *[facility], ED Attending Position: [facility] ED Attendings Patient Name: Nathan Jhaveri DO Position: [facility] Resident Member Role: Admitting Physician Address: Address: [address] [place] [address] Name: Marina Schaeffer RN Position: [facility] ED RN W/OE and Tasks Member Role: Patient Care Provider Name: Julio Guerra RN Position: [facility] ED RN W/OE and Tasks Member Role: Patient Care Provider Care Team Related Persons Name: JO-ANN ROMANAPPETIZER PACKERINDRA Address: [address] [place] [address] Name: RIGGING MANGREGG Address: [address] [place] [address] Name: CARLOS PAZ Address: [address] [place] [address]
--- OUTSIDE RECORDS SUMMARY | 2023-07-16 14:54 | XMS_ITS | Continuity of Care Document ---
Author Name Unknown Organization [facility] ter Address [address] [place] [address]- Care Team Providers Care Inclusion Intern Name Role Phone Maribel Marquez NP Primary Care Physician [phone] Encounter [facility] [place] Date(s): 12/14/22 - 12/15/[address] [address]- Encounter Diagnosis Suicidal ideation(Final) - 12/14/22 Auditory hallucinations(Final) - 12/14/22 Discharge Disposition: A-D/C Home Attending Physician: Val [...] 10:33:00 EST, Inhaler, Route to Pharmacy Electronically, NCPDP_[id number], [facility], 163, cm, 11/16/22 9:43:00 EST, Height, 97.3,... Start Date: 11/16/22 Status: Ordered atorvastatin 10 mg oral tablet 1 tablet = 10 mg, By Mouth, Daily at bedtime, # 30 tablet, 0 Refills, Maintenance, 11/16/22 10:33:00 EST, Tablet, [facility], Partial fill upon patient request if the prescription is for a schedule II opioid drug., 163, cm, 11/16/22 9:43:00... Start Date: 11/16/22 Status: Ordered benztropine 1 mg oral tablet 1 mg, 1, tablet, By Mouth, 2 times a day, # 60 tablet, Refills 0, Tot. Refills 0, Maintenance, 11/16/22 10:33:00 EST, Route to Pharmacy Electronically, [facility], Partial fill upon patientrequest if the prescription is for a schedule II op... Start Date: 11/16/22 Status: Ordered chlorproMAZINE 50 mg oral tablet 1 tablet = 50 mg, By Mouth, 3 times a day, PRN Anxiety, # 90 tablet, 0 Refills, Maintenance, 11/16/22 10:33:00 EST, Tablet, [facility], Partial fill upon patient request if [...] [facility], Partial fill upon patientrequest if the prescription is for a schedule II op... Start Date: 11/16/22 Status: Ordered lisinopril 5 mg oral tablet 5 mg, Tablet, By Mouth, 12/15/22 9:00:00 EST Start Date: 12/15/22 Stop Date: 12/15/22 Status: Completed lisinopril 5 mg oral tablet [...] 11/16/22 10:34:00 EST, Route to Pharmacy Electronically, [facility], Partial fill upon patient request if the prescription is for a schedule... Start Date: 11/16/22 Status: Ordered traZODone 50 mg oral tablet 150 mg, 3, tablet, By Mouth, Daily at bedtime, # 90 tablet, Refills 0, Tot. Refills 0, Maintenance,11/16/22 10:34:00 EST, Route to Pharmacy Electronically, [facility], Partial fill upon patient request if [...] 3 Oxygen Saturation [94-100 %] 97 % (12/15/22 7:43 AM) 97 % (12/15/22 6:38 AM) 100 % (12/14/22 10:03 PM) Pulse Rate [55-90 bpm] 87 bpm (12/15/22 7:43 AM) 76 bpm (12/15/22 6:38 AM) 87 bpm (12/14/22 10:03 PM) Blood Pressure [90-138/55-84 mm Hg] 124/86mm Hg (12/15/22 8:16 AM) 124/86mm Hg (12/15/22 7:43 AM) 142/67mm Hg *H* (12/15/22 6:38 AM) Respiratory Rate [16-30 br/min] 18 br/min (12/15/22 7:43 AM) 18 br/min (12/15/22 6:38 AM) 19 br/min (12/14/22 10:03 PM) Temperature [96.8-100.4 DegF] 98.2 DegF (12/15/22 6:38 AM) 98 DegF (12/14/22 10:03 PM) 98.7 DegF (12/14/22 8:32 PM) Mode of Delivery (Oxygen) Room air (12/15/22 7:43 AM) Room air (12/15/22 6:38 AM) Room air (12/14/22 10:03 PM) Blood pressure sites Arm, right (12/15/22 7:43 AM) Arm, right (12/15/22 6:38 AM) Arm, right (12/14/22 10:03 PM) Temperature Route Oral (12/15/22 6:38 AM) Oral (12/14/22 10:03 PM) Oral (12/14/22 8:32 PM) Social History Social History Type Response [...] Display: ECG 12-Lead Authored Date: Ventricular Rate: 88 BPM Atrial Rate: 88 BPM P-R Interval: 174 ms QRS Duration: 84 ms Q-T Interval: 380 ms QTC Calculation(Bazett): 459 ms P [place]: 53 degrees R [place]: 39 degrees T [place]: 44 degrees Normal sinus rhythm Normal ECG When compared with ECG of 13-NOV-2022 16:20, No significant change was found Confirmed by NEHEMIAS CAMEJO MD ([id number]) on 12/15/2022 8:14:09 AM Landing: NEHEMIAS CAMEJO MD Note * Val Dietz DO: PERFORM Event Display: Patient Education Leaflets Authored Date: [id number] Psychosis ?? [id number] Psychosis Psychosis is a serious symptom of [...] that are not part of a person's adventism or cultural background. There may also be [...] providers about all of the prescription medicines, hcnt-omn-eygddkn medicines, illegal drugs, vitamins, and supplements you [...] 07/05. The [facility] will work together with [facility] to make sure you get the care [...] real ?? Last Reviewed Date: 2021 ?? [phone] [employer]. All rights reserved. This information is not [...] Primary Care Nurse Name: Harmony Pagan Position: [facility] RN Member Role: Primary Care Nurse Name: Ros Fu RN Position: [facility] RN Member Role: Primary Care Nurse Name: Hilda Mccabe RN Position: [facility] RN Member Role: Primary Care Nurse Name: Rosana Kearney RN Position: [facility] AMB Nurse [...] Associate Professional Member Role: PCP Address: Address: [address] [place] [id number] Name: Jose Ramirez RN [facility] Member Role: Primary Care Nurse Name: Kimmie DISTRIBUTION SUPERVISORJay Position: Reference Physician Member Role: Primary Care Nurse Address: Address: [address] [facility] [address] Clinical & [place] [address]- [place] Name: Parvez Kaba MD Position: [facility] Renal MD Member Role: Lifetime Consulting Physician Address: Address: [address] [facility] [place] [address]- [place] Name: Yoana Ledezma RN Position: [facility] RN Member Role: Primary Care Nurse Name: Mirna Paul RN Position: [facility] OB RN Member Role: Primary Care Nurse Name: Lacey RNLatonya Position: [facility] Onco RN Member Role: Primary Care Nurse Name: Viki Gonzalez RN Position: [facility] RN Member Role: Primary Care Nurse Name: Claudia Presley RN Position: [facility] RN Member Role: Primary Care Nurse Name: Iris Villa RN Position: [facility] Hospital Shank Turner Member Role: Primary Care Nurse [facility] Attending Position: [facility] ED Attendings Patient Name: Jackie Reynoso RN Position: [facility] ED RN W/OE and Tasks Member Role: Patient Care Provider Name: Val Dietz DO Position: [facility] ED Medicine MD Member Role: Admitting Physician Address: Address: [address] [facility] [place] [address]- [place] Name: Lenore Ferrer Position: [facility] ED [facility] Member Role: Patient Care Provider Care Team Related Persons Name: JO-ANN ROMANPROOF PRESS OPERATORINDRA Address: [address] [place] [address] Name: COMMUNITY CENTER WORKERGREGG Address: [address] [place] [address] Name: CARLOS PAZ Address: [address] [place] [address]
--- OUTSIDE RECORDS SUMMARY | 2023-07-16 14:54 | XMS_ITS | Continuity of Care Document ---
Author Name Unknown Organization [facility] Address [address] [place] [address]- Care Team Providers Care Registered Nurse Surgical Services Name Role Phone Maribel Marquez NP Primary Care Physician Encounter [facility] [place] Date(s): 01/29/22 - 01/30/[address] [address]- Encounter Diagnosis Chest pain(Final) - 01/29/22 Dizziness(Final) - 01/29/22 Abdominal pain(Final) - 01/29/22 Nausea and vomiting(Final) - 01/29/22 Discharge Disposition: A-D/C [place] Attending Physician: Yamileth Lemon MD Admitting Physician: Debra LE, Mateo Referring Physician: Not on Staff, Referring MD [...] tablet, 0 Refills, Maintenance, 01/04/22 11:12:00 EDT, [facility], Partial fill upon patient request if [...] 02/04/22 14:09:00 EDT, 01/30/22 14:09:00 EDT, Capsule, [facility], Partial fill upon patient request if the pr... Start Date: 01/30/22 Stop Date: 02/04/22 Status: Ordered ferrous sulfate 325 mg oral enteric coated tablet 325 mg, 1, tablet, By Mouth, Daily, # 90 tablet, Refills 2, Tot. Refills 2, Maintenance, 04/11/21 9:22:00 EDT, Route to Pharmacy Electronically, [facility], Partial fill upon patient request if the prescription is for a schedule II opioid Start Date: 04/11/21 Stop Date: 01/06/22 Status: Ordered Flovent HFA 110 mcg/inh inhalation aerosol 2 puffs, Inhalation, 2 times a day, # 12 Gm, 2 Refills, [facility], 165, cm, 12/19/21 10:41:00 EST, Height, [...] 04/04/22 12:34:00 EDT, 01/04/22 12:34:00 EDT, Tablet, [facility], Partial fill upon patient request if the prescription is f... Start Date: 01/04/22 Stop Date: 04/04/22 Status: Ordered metFORMIN 500 mg oral tablet 1 each = 500 mg, By Mouth, 2 times a day, # 180 each, 1 Refills, Maintenance, 05/09/21 8:43:00 EDT,Tablet, [facility], Partial fill upon patient request if [...] 14:30:00 EDT, 01/30/22 14:10:00 EDT, REC Powder, [facility], Partialfill upon patient request if the prescription [...] 01/04/22 11:12:00 EDT, Route to Pharmacy Electronically, [facility], 165, cm, 12/19/21 10:41:00 EST, Height, 103, kg, 11/26/21 8:59:00 EST, Start Date: 01/04/22 Status: Ordered naproxen 500 mg oral tablet 1 tablet = 500 mg, By Mouth, 2 times a day, PRN Pain , Moderate, for 14 days, with food, # 28 tablet, 0 Refills, Acute 02/02/22 14:24:00 EDT, 01/19/22 14:24:00 EDT, Tablet, [facility], Partial fill upon patient request if the prescription is... Start Date: 01/19/22 Stop Date: 02/02/22 Status: Ordered nicotine 21 mg/24 hr transdermal film, extended release 1 patch, Topically, Daily, for 30 days, # 30 patch, 0 Refills, Acute 02/18/22 14:31:00 EDT, 01/19/22 14:31:00 EDT, Patch, [facility], Partial fill upon [...] 10:48:00 EDT, [facility]ically, [facility] [...] Maintenance, 05/09/21 8:45:00 EDT, SR Tablet, [facility], 165, cm, 04/11/21 7:42:00 EDT, Height, [...] Exam Date Time Procedure Performing Provider Status 01/29/22 6:52 PM Chest 2 Views Frontal and Lat Malorie Ling; Auth (Verified) Notes: (Chest 2 Views Frontal and Lat) Reason For Exam: Shortness of Breath, Fever;Other: RESULT: Chest 2 Views Frontal and Lat Chest 2 Views Frontal and Lat Hx of Present Illness: pt coming from detention stating she was outside smoking a cigarette when she became dizzy, experienced chest pain, nausea, vomiting. States she is gasping for air Denies SI HI. States she has been non med- complaiant for 24 hours and is hearing voices.; Reason: Other:; Shortness of Breath, Fever; Clinical Question(s): Pneumonia COMPARISON: 10/02/2021 FINDINGS: LINES AND TUBES: None. LUNGS AND PLEURA: Blunting of the costophrenic angles posteriorly on the lateral view suspicious for mild pneumonia. No pleural effusion. No pneumothorax. HEART, MEDIASTINUM AND HENRY: Heart is normal in size. Normal upper mediastinal and hilar contour. BONES AND SOFT TISSUES: No acute abnormality. IMPRESSION: Findings suspicious for mild pneumonia possibly right lower lobe. WSN: [id number] Ordering Physician: Jermaine Bradley Dictated By: Mauro Childs MD Dictated Date/Time: 01/29/22 7:04 pm Reviewed By: Mauro Childs MD Signed By: Mauro Childs MD Signed Date/Time: 01/29/22 7:04 pm Transcribed By: DAVIS Transcribed Date/Time: 01/29/22 7:03 pm Vital Signs Most recent to oldest [Reference Range]: 1 2 3 Oxygen Saturation [94-100 %] 96 % (01/30/22 3:15 PM) 96 % (01/30/22 10:41 AM) 95 % (01/30/22 9:10 AM) Pulse Rate [55-90 bpm] 67 bpm (01/30/22 3:15 PM) 71 bpm (01/30/22 10:41 AM) 64 bpm (01/30/22 9:10 AM) Blood Pressure [90-138/55-84 mm Hg] 139/82mm Hg *H* (01/30/22 3:15 PM) 147/98mm Hg *H* (01/30/22 10:41 AM) 161/101mm Hg *H* (01/30/22 9:10 AM) Respiratory Rate [16-30 br/min] 16 br/min (01/30/22 3:15 PM) 16 br/min (01/30/22 10:41 AM) 16 br/min (01/30/22 9:10 AM) Temperature [96.8-100.4 DegF] 98.2 DegF (01/30/22 3:15 PM) 98.0 DegF (01/30/22 10:41 AM) 98.2 DegF (01/29/22 5:36 PM) Mode of Delivery (Oxygen) Room air (01/30/22 3:15 PM) Room air (01/30/22 10:41 AM) Room air (01/29/22 10:23 PM) Blood pressure sites Arm, right (01/29/22 10:23 PM) Arm, right (01/29/22 5:36 PM) Temperature Route Oral (01/30/22 3:15 PM) Oral (01/30/22 10:41 AM) Oral (01/29/22 5:36 PM) Social History Social History Type Response Smoking Status 10 or more cigarette s (1/2 pack or more)/day in last 30 days; Type: Cigarettes; Other: Reports smoking 1/2-1 packs/day, ending on level of stress; Started at age: 25; entered on: 12/31/20 Sex
--- OUTSIDE RECORDS SUMMARY | 2023-07-16 14:54 | XMS_ITS | Continuity of Care Document ---
Author Name Unknown Organization [facility] ter Address [address] [place] [id number]- Care Team Providers Care Leather Production Machine Operator Name Role Phone Maribel Marquez NP Primary Care Physician [phone] [facility] Date(s): 01/24/22 - 01/25/[address] [address]- Encounter Diagnosis Auditory hallucinations(Final) - 01/24/22 Discharge Disposition: A-D/C Home Attending Physician: Taya LE, Jarvis Quispe Admitting Physician: Taya LE, Jarvis Quispe Referring Physician: Not on Staff, Referring MD [...] tablet, 0 Refills, Maintenance, 01/04/22 11:12:00 EDT, [facility], Partial fill upon patient request if [...] 04/11/21 9:22:00 EDT, Route to Pharmacy Electronically, [facility], Partial fill upon patient request if the prescription is for a schedule II opioid . Start Date: 04/11/21 Stop Date: 01/06/22 Status: Ordered Flovent HFA 110 mcg/inh inhalation aerosol 2 puffs, Inhalation, 2 times a day, # 12 Gm, 2 Refills, [facility], 165, cm, 12/19/21 10:41:00 EST, Height, [...] 04/04/22 12:34:00 EDT, 01/04/22 12:34:00 EDT, Tablet, [facility], Partial fill upon patient request if the prescription is f... Start Date: 01/04/22 Stop Date: 04/04/22 Status: Ordered metFORMIN 500 mg oral tablet 1 each = 500 mg, By Mouth, 2 times a day, # 180 each, 1 Refills, Maintenance, 05/09/21 8:43:00 EDT,Tablet, [facility], Partial fill upon patient [...] 01/04/22 11:12:00 EDT, Route to Pharmacy Electronically, [facility], 165, cm, 12/19/21 10:41:00 EST, Height, 103, kg, 11/26/21 8:59:00 ESTDr... Start Date: 01/04/22 Status: Ordered naproxen 500 mg oral tablet 1 tablet = 500 mg, By Mouth, 2 times a day, PRN Pain , Moderate, for 14 days, with food, # 28 tablet, 0 Refills, Acute 02/02/22 14:24:00 EDT, 01/19/22 14:24:00 EDT, Tablet, [facility], Partial fill upon patient request if the prescription is... Start Date: 01/19/22 Stop Date: 02/02/22 Status: Ordered nicotine 21 mg/24 hr transdermal film, extended release 1 patch, Topically, Daily, for 30 days, # 30 patch, 0 Refills, Acute 02/18/22 14:31:00 EDT, 01/19/22 14:31:00 EDT, Patch, [facility], Partial fill upon patient [...] 0 Refills, Maintenance, 02/09/20 10:05:00 EDT, Inhaler, [facility], 165, cm, 02/08/20 19:47:00 EDT, Height, 104.5, kg, 02/07/20 8:15:00 EDT, Dry Weight Start Date: 02/09/20 Stop Date: 03/10/20 Status: Ordered verapamil 240 mg/12 hours oral tablet, extended release 1 tablet = 240 mg, By Mouth, Daily at bedtime, # 90 tablet, 1 Refills, Maintenance, 05/09/21 8:45:00 EDT, SR Tablet, [facility], 165, cm, 06/28/21 7:42:00 EDT, Height, 102.6, kg, 02/12/21 12:14:00 [...] 2 Oxygen Saturation [94-100 %] 97 % (01/25/22 6:46 AM) 97 % (01/24/22 7:57 PM) Pulse Rate [55-90 bpm] 75 bpm (01/25/22 6:46 AM) 87 bpm (01/24/22 7:57 PM) Blood Pressure [90-138/55-84 mm Hg] 141/ 90mm Hg *H* (01/25/22 6:46 AM) 122/72mm Hg (01/24/22 7:57 PM) Respiratory Rate [16-30 br/min] 16 br/mi n (01/25/22 6:46 AM) 18 br/min (01/24/22 7:57 PM) Temperature [96.8-100.4 DegF] 97.9 DegF (01/25/22 6:46 AM) 98.3 DegF (01/24/22 7:57 PM) Mode of Delivery (Oxygen) Room air (01/25/22 6:46 AM) Room air (01/24/22 7:57 PM) Blood pressure sites Arm, right (01/25/22 6:46 AM) Arm, right (01/24/22 7:57 PM) Temperature Route Oral (01/25/22 6:46 AM) Oral (01/24/22 7:57 PM) Social History Social History Type Response Smoking Status 10 or more cigarette s (1/2 pack or more)/day in last 30 days; Type: Cigarettes; Other: Reports smoking 1/2-1 packs/day, ending on level of stress; Started at age: 25; entered on: 12/31/20 Sex
--- OUTSIDE RECORDS SUMMARY | 2023-07-16 14:54 | XMS_ITS | Continuity of Care Document ---
Author Name Unknown Organization [facility] Address [address] [place] [address]- Care Team Providers Care Lead Atg Developer Name Role Phone Maribel Marquez NP Primary Care Physician Encounter [facility] Date(s): 08/02/22 - 09/01/[address] [address]- Allergies, Adverse Reactions, Alerts Substance Reaction Severity [...] tablet, 1 Refills, Maintenance, 07/24/22 15:17:00 EDT, [facility], 165.2, cm, 07/19/22 10:30:00 EDT, Height, [...] a day, # 12 Gm, 1 Refills, [facility], 162, cm, 03/20/22 19:50:00 EDT, Height, [...] 60 tablet, 5 Refills, 08/07/22 10:55:00 EDT, [facility], 165.2, cm, 07/19/22 10:30:00 EDT, Height, [...] 01/04/22 11:12:00 EDT, Route to Pharmacy Electronically, [facility], 165, cm, 12/19/21 10:41:00 EST, Height, [...] 1 Refills, Maintenance, 06/23/22 16:17:00 EDT, Aerosol, [facility], Partial fill upon patient request if [...] 07/28/22 7:45:00 EDT, Route to Pharmacy Electronically, [facility], 165.2, cm, 07/19/22 10:30:00 EDT, Height, [...] Refills, Maintenance, 05/09/21 8:45:00 EDT, SR Tablet, [facility], 165, cm, 04/11/21 7:42:00 EDT, Height, [...] Rosana Kearney RN Position: [facility] AMB Nurse Member Role: Primary Care Nurse Name: Wil Flood RN Position: [facility] RN Member Role: Primary Care Nurse Name: Gagandeep Sheldon RN Position: [facility] RN Member Role: Primary Care Nurse Name: Chip Morton Position: [facility] Outreach Member Role: Lifetime Consulting Physician Name: Alba Daily RN Position: [facility] RN Member Role: Primary Care Nurse Name: Maribel Marquez NP Position: [facility] PCO Associate Professional Member Role: PCP Address: Address: [address] [place] [address]- Name: Jose Ramirez RN [facility] Member Role: Primary Care Nurse Address: Address: [address] [place], [place] [id number] Clinical & [place] [address]- Name: Parvez Kaba MD Position: [facility] Renal MD Member Role: Lifetime Consulting Physician Address: Address: [address] [place] [address] [facility] [place] [address]- Name: Yoana Ledezma RN Position: [facility] RN Member Role: Primary Care Nurse Name: Mirna Paul RN Position: [facility] OB RN Member Role: Primary Care Nurse Name: Latonya Rahman RN Position: [facility] Onco RN Member Role: Primary Care Nurse Name: Claudia Presley RN Position: [facility] RN Member Role: Primary Care Nurse Name: Iris Villa RN Position: [facility] Crane Mechanic Member Role: Primary Care Nurse Care Team Related Persons Name: LISBETH- SUPERVISOR COMMUNICATIONS AND SIGNALSINDRA Address: home [address] [place] [address] Name: TELECOMMUNICATIONS EQUIPMENT INSTALLERGREGG Address: home [address] [place] [address] Name: CARLOS PAZ Address: home [address] [place] [address]
--- OUTSIDE RECORDS SUMMARY | 2023-07-16 14:54 | XMS_ITS | Continuity of Care Document ---
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 Start Date: 11/16/22 Status: Ordered atorvastatin 10 mg oral tablet 1 tablet = 10 mg, By Mouth, Daily at bedtime, # 30 tablet, 0 Refills, Maintenance, 11/16/22 10:33:00 EST, Tablet, [facility], Partial fill upon patient request if the prescription is for a schedule II opioid drug., 163, cm, 11/16/22 9:43:00... Start Date: 11/16/22 Status: Ordered benztropine 1 mg oral tablet 1 mg, 1, tablet, By Mouth, 2 times a day, # 60 tablet, Refills 0, Tot. Refills 0, Maintenance, 11/16/22 10:33:00 EST, Route to Pharmacy Electronically, [facility], Partial fill upon patientrequest if the prescription is for a schedule II op... Start Date: 11/16/22 Status: Ordered chlorproMAZINE 50 mg oral tablet 1 tablet = 50 mg, By Mouth, 3 times a day, PRN Anxiety, # 90 tablet, 0 Refills, Maintenance, 11/16/22 10:33:00 EST, Tablet, [facility], Partial fill upon patient request if the prescriptionis for a schedule II opioid drug., 163, cm, ... Start Date: 11/16/22 Status: Ordered ferrous sulfate 325 mg oral enteric coated tablet 325 mg, 1, tablet, By Mouth, Daily, # 90 tablet, Refills 2, Tot. Refills 2, Maintenance, 11/16/22 10:34:00 EST, Route to Pharmacy Electronically, [facility], Partial fill upon patient request if the prescription is for a schedule II opioid d... Start Date: 11/16/22 Stop Date: 08/13/23 Status: Ordered FLUoxetine 20 mg oral capsule 80 mg, 4, capsule, By Mouth, Daily in AM, # 120 capsule, Refills 0, Tot. Refills 0, Maintenance, 11/16/22 10:34:00 EST, Route to Pharmacy Electronically, [facility], Partial fill upon patient request if the prescription is for a schedule II... Start Date: 11/16/22 Status: Ordered fluPHENAZine 5 mg oral tablet 5 mg, 1, tablet, By Mouth, 2 times a day, # 60 tablet, Refills 0, Tot. Refills 0, Maintenance, 11/16/22 10:34:00 EST, Route to Pharmacy Electronically, [facility], Partial fill upon patientrequest if the prescription is for a schedule II op... Start Date: 11/16/22 Status: Ordered lisinopril 5 mg oral tablet 5 mg, 1, tablet, By Mouth, Daily, # 30 tablet, Refills 0, Tot. Refills 0, Maintenance, 11/16/22 10:34:00 EST, Route to Pharmacy Electronically, [facility], Partial fill upon patient requestif the prescription is for a schedule II opioid kaela... Start Date: 11/16/22 Status: Ordered metFORMIN 500 mg oral tablet 1 each = 500 mg, By Mouth, 2 times a day, # 60 tablet, 0 Refills, Maintenance, 11/16/22 10:34:00 EST, Tablet, [facility], Partial fill upon patient request if the prescription is for a schedule II opioid drug., 163, cm, 11/16/22 9:43:00 EST,... Start Date: 11/16/22 Status: Ordered mirtazapine 15 mg oral tablet 0.5 tablet = 7.5 mg, By Mouth, Daily at bedtime, # 15 tablet, 0 Refills, Maintenance, 11/16/22 10:34:00 EST, Tablet, [facility], Partial fill upon patient request if the prescription is fora schedule II opioid drug., 163, cm, 11/16/22 9:43:... Start Date: 11/16/22 Status: Ordered montelukast 10 mg oral tablet 10 mg, 1, tablet, By Mouth, Daily at bedtime, # 30 tablet, Refills 0, Tot. Refills 0, Maintenance, 11/16/22 10:34:00 EST, [facility] [...] 11/16/22 10:34:00 EST, Route to Pharmacy Electronically, [facility], Partial fill upon patient request if the prescription is for a schedule... Start Date: 11/16/22 Status: Ordered traZODone 50 mg oral tablet 150 mg, 3, tablet, By Mouth, Daily at bedtime, # 90 tablet, Refills 0, Tot. Refills 0, Maintenance,11/16/22 10:34:00 EST, Route to Pharmacy Electronically, [facility], Partial fill upon patient request if [...] 1 Oxygen Saturation [94-100 %] 97 % (11/25/22 7:49 PM) Pulse Rate [55-90 bpm] 106 bpm *H* (11/25/22 7:49 PM) Blood Pressure [90-138/55-84 mm Hg] 131/ 80mm Hg (11/25/22 7:49 PM) Respiratory Rate [16-30 br/min] 18 br/mi n (11/25/22 7:49 PM) Temperature [96.8-100.4 DegF] 98.2 DegF (11/25/22 7:49 PM) Mode of Delivery (Oxygen) Room air (11/25/22 7:49 PM) Temperature Route Oral (11/25/22 7:49 PM) Social History Social History Type Response Smoking Status 10 or more cigarette s (1/2 pack or more)/day in last 30 days; Type: Cigarettes; Other: Reports smoking 1/2-1 packs/day, ending on level of stress; Started at age: 25; entered on: 11/18/22 Sex Note * Carol Desouza MD: PERFORM Event Display: Patient Education Leaflets Authored Date: [id number] Bipolar Disorder ?? [id number] Bipolar Disorder Bipolar disorder is a serious, life-altering illness. It causes strong mood swings between depression and germania. It used to be called manic depression. The mood swings are different from the normal ups and downs people have in their lives. They are more severe and last longer. They can seriously interfere with work and relationships. These episodes are changes from usual moods and behavior. They can be mild, or drastic and explosive. The time between feelings of depression and germania varies with each person. It can be weeks, month, or even years. ??? In a manic episode, you may think fast and do things quickly. It may seem like you are getting a lot done. It may feel very good at first. But in the extreme, germania can lead to a lifestyle that is disorganized and chaotic. You may take part in risky behavior. Examples are spending sprees, sexual acting-out, or drug use. In later stages, you may have no interest in food. You may not be able tosleep for days at a time. Your speech may speed up and become hard to understand. You may appear toothers as if you are in your own world. ??? In a depressive episode, you may feel a lack of interest in normal activities. Sometimes you feel sadness or guilt without any clear reason. Your thinking may become slow. You may also lack energy or good concentration, or feel hopeless. Some people have thoughts of harming themselves at this stage. Thoughts can even turn to suicide. You may feel OK between these phases. This does not mean that the illness is gone. People with thisdisorder will often have to treat it all their life. Correct use of medicines and ongoing medical and mental health support can greatly ease symptoms. They can enhance your quality of life. The exact cause of bipolar disorder is unknown. But there is a genetic link that makes a person more likely to get it. Using illegal drugs such as speed (amphetamine) and cocaine raises a person's risk for this illness. Home care Here is what you can do at home: ??? Ongoing care and support can help you manage this disease. Find a healthcare provider and therapist who meet your needs. Seek help right away when you feel like you may be heading into either a manic episode or a depressive state. ??? Take your medicine as prescribed. Get regular blood work to check the levels of medicine in your body. Do this??even if you think you don???t need to do it. ??? Don't change or stop taking your medicine unless your healthcare provider says it is OK to do so. Don't share or use another person's medicines. ??? Tell all your healthcare providers about all the prescriptions, ktae-dyq-bhfiopm medicines, and supplements you take.? ?Certain supplements interact with medicines. They may cause dangerous side effects. You can also ask your pharmacist about medicine interactions before starting any new medicine or supplement. ??? Talk with your family and trusted friends about your thoughts and feelings. Ask them to help you notice behavior changes early. You can then get help and have your medicines adjusted, if needed. When you are feeling well, make a management plan for a trusted friend or family member to help you during hard times. For example, you can ask them to hold your credit cards for you if you overspend during a germania. Or they can get emergency help for you if your depression leads to suicidal thoughts. Ifyour illness is severe, consider giving trusted people access to your healthcare providers. They can then work together to keep you safe. ??? Don't drink alcohol or use illegal drugs. They can bring on an episode and make it worse. ??? If your life is severely affected by this illness, the Americans with Disabilities Act (ADA) may provide help. The ADA protects people with chronic physical and mental health problems. Contact your local ADA office for help if you are having trouble keeping jobs,managing workplace issues, or caring for yourself because of your bipolar disorder. The U.[place]. Department of Justice has a toll-free ADA information line at 377-513-6889 (voice) or 747-309-0010 (TTY). It can help you find a local office. Or??go to www.ada.gov for more information. ??? Join an in-person or virtual support group for people with mental health problems. ?? Follow-up care Follow up with your healthcare provider or therapist as advised. They can help you find ways to improve your life. ?? Call or text [phone] When you call or text [phone], you will be connected to trained crisis counselors at the Suicide Prevention Lifeline. An online chat option is also available. Lifeline is free and available 07/05. 988 counselors will work closely with 911 to get you the care you need. Call or text [phone] if you have: ??? Suicidal thoughts, a plan to harm yourself, and the means to do so ??? Serious thoughts of hurting someone else ??? Trouble breathing ??? Confusion ??? Drowsiness ortrouble wakening ??? Fainting or loss of consciousness ??? Rapid heart rate, very low heart rate, or a new irregular heart rate ??? Seizure ??? New chest pain that becomes more severe, lasts longer, or spreads into your shoulder, arm, neck, jaw, or back ?? When to seek medical advice Call your healthcare provider right away if any of these happen: ??? Feeling like your symptoms aregetting worse (depression, agitation, or excessive energy) ??? Not eating or sleeping for more than48 hours ??? Feeling out of control (racing thoughts, paranoid thoughts, hallucinations, or poor concentration) ??? Feeling like you want to harm yourself or another ??? Being unable to care for yourself ?? Last Reviewed Date: 2022 ?? [id number] The [employer]. All rights reserved. This information is not [...] Primary Care Nurse Name: Harmony Pagan Position: [facility] RN Member Role: [...] Professional Member Role: PCP Address: Address: [address] [place] [id number]- [place] Name: Jose Ramirez RN [facility] [...] Role: Primary Care Nurse Address: Address: [address] [place] [address] Clinical [facility] [place] [address]- [place] Name: Parvez Kaba MD Position: [facility] Renal MD Member Role: Lifetime Consulting Physician Address: Address: [address] [place] [address] [facility] [place] [address]- Name: Yoana Ledezma RN [facility] Villa RN Position: [facility] Hospital Procurement Forester Member Role: Primary Care Nurse Name: Cara Miranda MD Position: [facility] ED Medicine MD Member Role: Admitting Physician Address: Address: [address] [place] [address]- [place] Name: Marie Childs Position: [facility] ED TA [facility] Member Role: Patient Care Provider Name: Mackenzie Arechiga RN Position: [facility] ED RN W/OE and Tasks Member Role: Patient Care Provider Name: Carol Desouza MD Position: [facility] Resident Member Role: ED Resident Address: Address: [address] [place] [address]- [place] Care Team Related Persons Name: LISBETH- CUSTOM HOME INSTALLERINDRA Address: [address] [place] [address] Name: AERIAL PHOTOGRAPHERGREGG Address: home [address] [place] [address] Name: CARLOS PAZ Address: home [address] [place] [address]
--- OUTSIDE RECORDS SUMMARY | 2023-07-16 14:54 | XMS_ITS | Continuity of Care Document ---
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 Discharge Disposition: Transfer to [facility] Facility Attending Physician: James Muñoz MD Admitting Physician: James Muñoz MD Referring Physician: Not on Staff, Referring [...] 0 Refills, Maintenance, 12/23/20 16:38:00 EST, Tablet, [facility], Partial fill upon patient request if [...] 0 Refills, Maintenance, 02/09/20 10:08:00 EDT, Tablet, [facility], 165, cm, 02/08/20 19:47:00 EDT, Height, 104.5, kg,02/07/20 8:15:00 EDT, Dry Weight Start Date: 02/09/20 Status: Ordered doxazosin 1 mg oral tablet 3 mg, 3, tablet, By Mouth, Daily at bedtime, # 90 tablet, Refills 0, Tot. Refills 0, Maintenance, 07/22/20 18:41:00 EDT, Route to Pharmacy Electronically, [facility], 163.5, cm, 07/22/20 18:29:00 EDT, Height, 102.5, kg, 07/18/20 21:04:00 EDT... Start Date: 07/22/20 Status: Ordered ferrous sulfate 325 mg oral enteric coated tablet 325 mg, 1, tablet, By Mouth, Daily, # 30 tablet, Refills 0, Tot. Refills 0, Maintenance, 12/23/20 15:38:00 EST, Route to Pharmacy Electronically, [facility], Partial fill upon patient request if the prescription is for a schedule II opioid d... Start Date: 12/23/20 Status: Ordered Flovent HFA 110 mcg/inh inhalation aerosol 2 puffs = 220 mcg, Inhalation, 2 times a day, # 1 each, 0 Refills, Maintenance, 12/23/20 15:38:00 EST, Aerosol, [facility], 162, cm, 12/23/20 10:43:00 EST, Height, 122.1, kg, 12/21/20 16:25:00 EST, Dry Weight Start Date: 12/23/20 Status: Ordered Haldol Decanoate decanoate 100 mg/ml injectable solution = 100 mg, Intramuscular, Every 28 days, last dose given on 09/17/2020. Next due 10/15/20., # 1 each, 0Refills, Soft Stop, 07/22/20 18:42:00 EDT, Solution, [facility], 163.5, cm, 07/22/20 18:29:00 EDT, Height, 102.5, kg, 07/18/20 21:04:00 EDT,... Start Date: 07/22/20 Status: Ordered lisinopril 5 mg oral tablet 5 mg, 1, tablet, By Mouth, Daily, # 30 tablet, Refills 0, Tot. Refills 0, Maintenance, 02/09/20 10:10:00 EDT, Route to Pharmacy Electronically, [facility], 165, cm, 02/08/20 19:47:00 EDT, Height, [...] 0 Refills, Maintenance, 12/23/20 16:38:00 EST, Tablet, [facility], Partial fill upon patient request if the prescription is for a schedule II opioid drug., 162, cm, 12/23/20 15:59:00 EST... Start Date: 12/23/20 Stop Date: 01/22/21 Status: Ordered montelukast 10 mg oral tablet 10 mg, 1, tablet, By Mouth, Daily, # 30 tablet, Refills 0, Tot. Refills 0, Maintenance, 02/09/20 10:11:00 EDT, Route to Pharmacy Electronically, [facility], 165, cm, 02/08/20 19:47:00 EDT, Height, 104.5, kg, 02/07/20 8:15:00 EDT, Dry Weight Start Date: 02/09/20 Status: Ordered norethindrone 0.35 mg oral tablet 1 tablet = 0.35 mg, By Mouth, Daily, # 30 tablet, 0 Refills, Maintenance, 02/09/20 10:07:00 EDT, Tablet, [facility], 165, cm, 02/08/20 19:47:00 EDT, Height, [...] Refills, Maintenance, 12/23/20 15:38:00 EST, REC Powder, [facility], Partial fill upon patient request if [...] 0 Refills, Maintenance, 02/09/20 10:05:00 EDT, Inhaler, [facility], 165, cm, 02/08/20 19:47:00 EDT, Height, 104.5, kg, 02/07/20 8:15:00 EDT, Dry Weight Start Date: 02/09/20 Stop Date: 03/10/20 Status: Ordered verapamil 240 mg/12 hours oral tablet, extended release 1 tablet = 240 mg, By Mouth, Daily at bedtime, # 30 tablet, 0 Refills, Maintenance, 02/09/20 10:14:00 EDT, SR Tablet, [facility], 165, cm, 02/08/20 19:47:00 EDT, Height, 104.5, kg, 208:15:00 EDT, Dry Weight Start Date: 02/09/20 Status: Ordered Verapamil SR Tablet 240 mg, SR Tablet, By Mouth, 03/16/21 9:00:00 EDT Start Date: 03/16/21 Stop Date: 03/16/21 Status: Completed Problem List Condition Effective Dates [...] Oxygen Saturation [94-100 %] 92 % *L* (03/16/21 2:45 PM) 95 % (03/16/21 8:00 AM) 100 % (03/16/21 1:36 AM) Pulse Rate [55-90 bpm] 81 bpm (03/16/21 2:45 PM) 84 bpm (03/16/21 10:21 AM) 84 bpm (03/16/21 8:00 AM) Blood Pressure [90-138/55-84 mm Hg] 121/65mm Hg (03/16/21 2:45 PM) 134/85mm Hg (03/16/21 10:21 AM) 134/85mm Hg (03/16/21 8:00 AM) Respiratory Rate [16-30 br/min] 17 br/min (03/16/21 2:45 PM) 16 br/min (03/16/21 8:00 AM) 18 br/min (03/16/21 1:36 AM) Temperature [96.8-100.4 DegF] 98.9 DegF (03/16/21 2:45 PM) 98.7 DegF (03/16/21 8:00 AM) 98.7 DegF (03/16/21 1:36 AM) Mode of Delivery (Oxygen) Room air (03/16/21 2:45 PM) Room air (03/16/21 8:00 AM) Room air (03/16/21 1:36 AM) Blood pressure sites Arm, left (03/16/21 2:45 PM) Arm, left (03/16/21 8:00 AM) Arm, right (03/16/21 1:36 AM) Temperature Route Oral (03/16/21 2:45 PM) Oral (03/16/21 8:00 AM) Oral (03/16/21 1:36 AM) Social History Social History Type Response Smoking Status 10 or more cigarette s (1/2 pack or more)/day in last 30 days; Type: Cigarettes; Other: Reports smoking 1/2-1 packs/day, ending on level of stress; Started at age: 25; entered on: 12/31/20 Sex
--- OUTSIDE RECORDS SUMMARY | 2023-07-16 14:54 | XMS_ITS | Continuity of Care Document ---
Author Name Unknown Organization [facility] Adult Address [address] [place] [address]- Care Team Providers Care Hooking Machine Operator Name Role Phone Maribel Marquez NP Primary Care Physician [phone] Encounter [facility] [place] Date(s): 05/03/21 - 06/02/21 [facility] Adult [address] [place] [address]- Allergies, Adverse Reactions, Alerts Substance Reaction Severity [...] 0 Refills, Maintenance, 12/23/20 16:38:00 EST, Tablet, [facility], Partial fill upon [...] 0 Refills, Maintenance, 02/09/20 10:08:00 EDT, Tablet, [facility], 165, cm, 02/08/20 19:47:00 EDT, Height, [...] cm, 04/11/21 7:42:00 EDT, Height, 102.6, kg, 05/01/21 12:14:00 EDT, Dry Weight Start Date: 05/09/21 Status: Ordered Haldol Decanoate decanoate 100 mg/ml injectable solution = 100 mg, Intramuscular, Every 28 days, last dose given on 09/17/2020. Next due 10/15/20., # 1 each, 0Refills, Soft Stop, 07/22/20 18:42:00 EDT, Solution, [facility], 163.5, cm, 07/22/20 18:29:00 EDT, [...] 04/11/21 9:38:00 EDT, Route to Pharmacy Electronically, [facility], [...]
--- OUTSIDE RECORDS SUMMARY | 2023-07-16 14:54 | XMS_ITS | Continuity of Care Document ---
Author Name Unknown Organization [facility] Adult Address [address] [place] [address]- Care Team Providers Care Wall Covering Installer Name Role Phone Maribel Marquez NP Primary Care Physician [phone] Encounter [facility] [place] Date(s): 07/21/22 - 08/20/22 [facility] Adult [address] [place] [address]- Allergies, Adverse Reactions, Alerts Substance Reaction Severity [...] tablet, 1 Refills, Maintenance, 07/24/22 15:17:00 EDT, [facility], 165.2, cm, 07/19/22 10:30:00 EDT, Height, [...] 04/11/21 9:22:00 EDT, Route to Pharmacy Electronically, [facility], Partial fill upon patient request if the prescription is for a schedule II opioid dr... Start Date: 04/11/21 Stop Date: 01/06/22 Status: Ordered Flovent HFA 110 mcg/inh inhalation aerosol 2 puffs, Inhalation, 2 times a day, # 12 Gm, 1 Refills, [facility], 162, cm, 03/20/22 19:50:00 EDT, Height, [...] 07/21/22 14:07:00 EDT, Route to Pharmacy Electronically, [facility], Partial fill upon patient requestif the prescription is for a schedule II opioid kaela... Start Date: 07/21/22 Stop Date: 04/17/23 Status: Ordered metFORMIN 500 mg oral tablet See Instructions, TAKE 1 EACH BY MOUTH 2 TIMES A DAY, # 60 tablet, 5 Refills, 10/24/22 10:55:00 EDT, [facility], 165.2, cm, 07/19/22 10:30:00 EDT, Height, [...] 01/04/22 11:12:00 EDT, Route to Pharmacy Electronically, [facility], 165, cm, 12/19/21 10:41:00 EST, Height, 103, kg, 11/26/21 8:59:00 EST, . Start Date: 01/04/22 Status: Ordered Nicoderm C-Q Clear 21 mg/24 hr transdermal film, extended release 1 patch, Topically, Daily, for 6 week(s), # 42 patch, 0 Refills, Acute 08/30/22 11:56:00 EST, 07/19/22 11:56:00 EDT, Patch, [facility], Partial fill upon patient request if [...] 01/19/22 10:48:00 EDT, Route to Pharmacy Electronically, [facility], Partial fill upon patient request if the prescription is for a schedule... Start Date: 01/19/22 Status: Ordered ProAir HFA 90 mcg/inh inhalation aerosol 2 puffs, Inhalation, 4 times a day, PRN as needed for wheezing, # 6.7 Gm, 1 Refills, Maintenance, 06/23/22 16:17:00 EDT, Aerosol, [facility], Partial fill upon patient request if [...] 07/28/22 7:45:00 EDT, Route to Pharmacy Electronically, [facility], 165.2, cm, 07/19/22 10:30:00 EDT, Height, [...] Refills, Maintenance, 05/09/21 8:45:00 EDT, SR Tablet, [facility], 165, cm, 04/11/21 7:42:00 EDT, Height, [...] Personnel Name: Maribel Marquez NP Address: Address: [address] [place] [id number]
--- OUTSIDE RECORDS SUMMARY | 2023-07-16 14:55 | XMS_ITS | Continuity of Care Document ---
Author Name Unknown Organization [facility] Adult Address [address] [place] [address]- Care Team Providers Care Pathology Specialist Name Role Phone Maribel Marquez NP Primary Care Physician En[place] [facility] Date(s): 03/17/21 - 04/16/21 [facility] Adult [address] [place] [address]- Allergies, Adverse Reactions, Alerts Substance Reaction Severity [...] 0 Refills, Maintenance, 12/23/20 16:38:00 EST, Tablet, [facility], Partial fill [...] 0 Refills, Maintenance, 02/09/20 10:08:00 EDT, Tablet, [facility], 165, cm, 02/08/20 19:47:00 EDT, Height, 104.5, kg,02/07/20 8:15:00 EDT, Dry Weight Start Date: 02/09/20 Status: Ordered doxazosin 1 mg oral tablet 3 mg, 3, tablet, By Mouth, Daily at bedtime, # 90 tablet, Refills 0, Tot. Refills 0, Maintenance, 07/22/20 18:41:00 EDT, Route to Pharmacy Electronically, [facility], 163.5, cm, 07/22/20 18:29:00 EDT, Height, [...] 0 Refills, Maintenance, 12/23/20 15:38:00 EST, Aerosol, [facility], 162, cm, 12/23/20 10:43:00 EST, Height, 122.1, kg, 12/21/20 16:25:00 EST, Dry Weight Start Date: 12/23/20 Status: Ordered Haldol Decanoate decanoate 100 mg/ml injectable solution = 100 mg, Intramuscular, Every 28 days, last dose given on 09/17/2020. Next due 10/15/20., # 1 each, 0Refills, Soft Stop, 07/22/20 18:42:00 EDT, Solution, [facility], 163.5, cm, 07/22/20 18:29:00 EDT, Height, 102.5, kg, 07/18/20 21:04:00 EDT,... Start Date: 07/22/20 Status: Ordered lisinopril 5 mg oral tablet 5 mg, 1, tablet, By Mouth, Daily, # 30 tablet, Refills 0, Tot. Refills 0, Maintenance, 02/09/20 10:10:00 EDT, Route to Pharmacy Electronically, [facility], 165, cm, 02/08/20 19:47:00 EDT, Height, 104.5, kg, 02/07/20 8:15:00 EDT, Dry Weight Start Date: 02/09/20 Status: Ordered loratadine 10 mg oral tablet 10 mg, 1, tablet, By Mouth, Daily, # 90 tablet, Refills 3, Tot. Refills 3, Maintenance, 04/11/21 9:38:00 EDT, [facility] [...] 0 Refills, Maintenance, 12/23/20 16:38:00 EST, Tablet, [facility], Partial fill upon patient request if the prescription is for a schedule II opioid drug., 162, cm, 12/23/20 15:59:00 EST... Start Date: 12/23/20 Stop Date: 01/22/21 Status: Ordered montelukast 10 mg oral tablet 10 mg, 1, tablet, By Mouth, Daily, # 30 tablet, Refills 0, Tot. Refills 0, Maintenance, 02/09/20 10:11:00 EDT, Route to Pharmacy Electronically, [facility], 165, cm, 02/08/20 19:47:00 EDT, Height, 104.5, kg, 02/07/20 8:15:00 EDT, Dry Weight Start Date: 02/09/20 Status: Ordered norethindrone 0.35 mg oral tablet 1 tablet = 0.35 mg, By Mouth, Daily, # 30 tablet, 0 Refills, Maintenance, 02/09/20 10:07:00 EDT, Tablet, [facility], 165, cm, 02/08/20 19:47:00 EDT, Height, [...] Refills, Maintenance, 04/11/21 9:22:00 EDT, REC Powder, [facility], Partial fill upon patient [...] 0 Refills, Maintenance, 02/09/20 10:05:00 EDT, Inhaler, [facility], 165, cm, 02/08/20 19:47:00 EDT, Height, 104.5, kg, 02/07/20 8:15:00 EDT, Dry Weight Start Date: 02/09/20 Stop Date: 03/10/20 Status: Ordered verapamil 240 mg/12 hours oral tablet, extended release 1 tablet = 240 mg, By Mouth, Daily at bedtime, # 30 tablet, 0 Refills, Maintenance, 02/09/20 10:14:00 EDT, SR Tablet, [facility], 165, cm, 02/08/20 19:47:00 EDT, Height, [...]
--- OUTSIDE RECORDS SUMMARY | 2023-07-16 14:55 | XMS_ITS | Continuity of Care Document ---
Author Name Unknown Organization [facility] Adult Address [address] [place] [address]- Care Team Providers Care Political Organizer Name Role Phone Maribel Marquez NP Primary Care Physician [place] [facility] [place](s): 03/23/21 - 05/01/21 [facility] Adult [address] [place] [address]- Attending Physician: Maribel Marquez NP Allergies, Adverse Reactions, Alerts Substance Reaction Severity Status codeine Active Seafood Active Geodon Active lithium 1 Active penicillin Active predniSONE Active sulfa drugs Active Macrobid Active 1pt reports 01/17/13 started [...] 0Refills, Soft Stop, 07/22/20 18:42:00 EDT, Solution, [facility], 163.5, cm, 07/22/20 18:29:00 EDT, Height, 102.5, kg, 07/18/20 21:04:00 EDT,... Start Date: 07/22/20 Status: Ordered lisinopril 5 mg oral tablet 5 mg, 1, tablet, By Mouth, Daily, # 30 tablet, Refills 0, Tot. Refills 0, Maintenance, 02/09/20 10:10:00 EDT, Route to Pharmacy Electronically, [facility], 165, cm, 02/08/20 19:47:00 EDT, Height, 104.5, kg, 02/07/20 8:15:00 EDT, Dry Weight Start Date: 02/09/20 Status: Ordered loratadine 10 mg oral tablet 10 mg, 1, tablet, By Mouth, Daily, # 90 tablet, Refills 3, Tot. Refills 3, Maintenance, 04/11/21 9:38:00 EDT, Route to Pharmacy Electronically, [facility] [...] 0 Refills, Maintenance, 12/23/20 16:38:00 EST, Tablet, [facility], Partial fill upon patient request if the prescription is for a schedule II opioid drug., 162, cm, 12/23/20 15:59:00 EST... Start Date: 12/23/20 Stop Date: 01/22/21 Status: Ordered montelukast 10 mg oral tablet 10 mg, 1, tablet, By Mouth, Daily, # 30 tablet, Refills 0, Tot. Refills 0, Maintenance, 02/09/20 10:11:00 EDT, Route to Pharmacy Electronically, [facility], 165, cm, 02/08/20 19:47:00 EDT, Height, 104.5, kg, 02/07/20 8:15:00 EDT, Dry Weight Start Date: 02/09/20 Status: Ordered norethindrone 0.35 mg oral tablet 1 tablet = 0.35 mg, By Mouth, Daily, # 30 tablet, 0 Refills, Maintenance, 02/09/20 10:07:00 EDT, Tablet, [facility], 165, cm, 02/08/20 19:47:00 EDT, Height, [...] Refills, Maintenance, 04/11/21 9:22:00 EDT, REC Powder, [facility], Partial [...] 0 Refills, Maintenance, 02/09/20 10:05:00 EDT, Inhaler, [facility], 165, cm, 02/08/20 19:47:00 EDT, Height, 104.5, kg, 02/07/20 8:15:00 EDT, Dry Weight Start Date: 02/09/20 Stop Date: 03/10/20 Status: Ordered verapamil 240 mg/12 hours oral tablet, extended release 1 tablet = 240 mg, By Mouth, Daily at bedtime, # 30 tablet, 0 Refills, Maintenance, 02/09/20 10:14:00 EDT, SR Tablet, [facility], 165, cm, 02/08/20 19:47:00 EDT, Height, [...]
--- OUTSIDE RECORDS SUMMARY | 2023-07-16 14:55 | XMS_ITS | Continuity of Care Document ---
Author Name Unknown Organization [facility] ter Address [address] [place] [address]- Care Team Providers Care Rental Clerk Tool And Equipment Name Role Phone Maribel Marquez NP Primary Care Physician [place] [facility] [place] 03/22/23 - 03/23/[address] [address]- Encounter Diagnosis Suicidal ideation(Final) - 03/22/23 Discharge Disposition: A-D/C Home Attending Physician: Ros [...] 10:33:00 EST, Inhaler, Route to Pharmacy Electronically, [id number]_[id number], [facility], 163, cm, 11/16/22 9:43:00 EST, Height, 97.3,... Start Date: 11/16/22 Status: Ordered atorvastatin 10 mg oral tablet 1 tablet = 10 mg, By Mouth, Daily at bedtime, # 30 tablet, 0 Refills, Maintenance, 11/16/22 10:33:00 EST, Tablet, [facility], Partial fill upon patient request if the prescription is for a schedule II opioid drug., [id number], 11/16/22 9:43:00... Start Date: 11/16/22 Status: [...] 0 Refills, Maintenance, 11/16/22 10:33:00 EST, Tablet, [facility], Partial fill upon patient request if [...] 11/16/22 10:34:00 EST, Route to Pharmacy Electronically, [facility], Partial fill upon patient request if the prescription is for a schedule II opioid d... Start Date: 11/16/22 Stop Date: 08/13/23 Status: Ordered FLUoxetine 20 mg oral capsule 80 mg, 4, capsule, By Mouth, Daily in AM, # 120 capsule, Refills 0, Tot. Refills 0, Maintenance, 11/16/22 10:34:00 EST, Route to Pharmacy Electronically, [facility], Partial fill upon patient request if [...] 11/16/22 10:34:00 EST, Route to Pharmacy Electronically, [facility], Partial fill upon patientrequest if the [...] 60 tablet, 1 Refills, Maintenance,02/22/23 10:08:00 EDT, [facility], 146, cm, 02/05/23 20:22:00 EDT, Height, [...] 0 Refills, Maintenance, 11/16/22 10:34:00 EST, Tablet, [facility], Partial fill upon patient request if [...] Start Date: 01/06/23 Status: Ordered nystatin topical 860854 u/gm cream 1 application, Topically, 2 times a day, # 15 Gm, 0 Refills, Maintenance, 01/05/23 15:04:00 EDT, Cream, [facility], Partial fill upon patient request if the prescription is for a schedule II opioid drug., 1 application Topically 2 times a da... Start Date: 01/05/23 Status: Ordered nystatin topical [id number] u/gm cream 0 Refills, Maintenance, 01/06/23 18:05:00 [...] Maintenance,11/16/22 10:34:00 EST, Route to Pharmacy Electronically, [facility], Partial fill upon patient request if [...] 2 Oxygen Saturation [94-100 %] 100 % (03/23/23 9:57 AM) 97 % (03/22/23 7:46 PM) Pulse Rate [55-90 bpm] 79 bpm (03/23/23 9:57 AM) 102 bpm *H* (03/22/23 7:46 PM) Blood Pressure [90-138/55-84 mm Hg] 136/ 85mm Hg (03/23/23 9:57 AM) 133/95mm Hg (03/22/23 7:46 PM) Respiratory Rate [16-30 br/min] 16 br/mi n (03/23/23 9:57 AM) 19 br/min (03/22/23 7:46 PM) Temperature [96.8-100.4 DegF] 98.3 DegF (03/23/23 9:57 AM) 97.9 DegF (03/22/23 7:46 PM) Mode of Delivery (Oxygen) Room air (03/23/23 9:57 AM) Blood pressure sites Arm, right (03/23/23 9:57 AM) Temperature Route Oral (03/23/23 9:57 AM) Oral (03/22/23 7:46 PM) Social History Social History Type Response Smoking Status 10 or more cigarette s (1/2 pack or more)/day in last 30 days; Type: Cigarettes; Other: Reports smoking 1/2-1 packs/day, ending on level of stress; Started at age: 25; entered on: 11/18/22 Sex Note * Mickie LE, Ros Ortiz: PERFORM Event Display: Patient Education Leaflets Authored Date: [id number] Recognizing Suicide Warning Signs in Yourself ?? 10112 Recognizing Suicide Warning Signs in Yourself People [...] National Suicide Prevention Lifeline at www.suicidepreventionlifeline.org or 504-873-ORSF (804-669-6272) ??? National [place] on Mental Illness at www.trsitian.org or 585-814-3246 ??? Mental Health [place] at www.[facility].org or 425-912-2955 ??? National [place] of Mental Health at www.nimh.nih.gov or 020-466-0702 ?? Last Reviewed Date: 2022 ?? [employer] All rights reserved. This information is not intended as a substitute for professional medical care. Always follow your healthcare professional's instructions. ?? Patient Care team information Care Team Personnel Name: Rudi Ruiz RN Position: [facility] ED RN W/OE and Tasks Member Role: Primary Care Nurse Name: Alicja Riggs RN Position: [facility] RN Member Role: Primary Care Nurse Name: Ros Fu RN Position: [facility] RN Member Role: Primary Care Nurse Name: Hilda Mccabe RN Position: [facility] RN Member Role: Primary Care Nurse Name: Rosana Kearney RN Position: [facility] SN RN Member Role: Primary Care Nurse Name: Wil Flood RN Position: [facility] RN Member Role: Primary Care Nurse Name: Gagandeep Sheldon RN Position: [facility] RN Member Role: Primary Care Nurse Name: Chip Morton Position: [facility] Outreach Member Role: Lifetime Consulting Physician Name: Alba Daily RN Position: [facility] RN Member Role: Primary Care Nurse Name: Maribel Marquez NP Position: [facility] PCO Associate Professional Member Role: PCP Address: Address: [address] [place] [id number]- [place] Name: Jose Ramirez RN Position: [facility] RN Member Role: Primary Care Nurse Name: Brittany Butts RN Position: [facility] AMB Nurse Member Role: Primary Care Nurse Name: Pualine Mcadams RN Position: [facility] RN Member Role: Primary Care Nurse Name: Mary Sánchez RN Position: [facility] RN Member Role: Primary Care Nurse Name: Shama Rosado RN Position: [facility] RN Member Role: Primary Care Nurse Name: Jackie Snyder RN Position: [facility] RN Member Role: Primary Care Nurse Name: Jay Burks NP Position: Reference Physician Member Role: Primary Care Nurse Address: Address: [address] [place], [place] [id number] [facility] [place] [address]- Name: Parvez Kaba MD Position: [facility] Renal MD Member Role: Lifetime Consulting Physician Address: Address: [address] [place] [address] [facility] [place] [address]- Name: Mirna Paul RN Position: [facility] OB RN Member Role: Primary Care Nurse Name: Latonya Rahman RN Position: [facility] Onco RN Member Role: Primary Care Nurse Name: Viki Gonzalez RN Position: [facility] RN Member Role: Primary Care Nurse Name: Claudia Presley RN Position: [facility] RN Member Role: Primary Care Nurse Name: Iris Villa RN Position: [facility] Hospital Customer Service Receptionist Member Role: Primary Care Nurse [facility] Attending Position: [facility] ED Attendings Patient Name: Ros Corado MD Position: [facility] ED Medicine MD Member Role: Admitting Physician Address: Address: [address] [place] [address] [place] [address]- [place] Name: Yue Toney RN Position: [facility] ED RN W/OE and Tasks Member Role: Patient Care Provider Name: Snow Locke Position: [facility] ED TA [facility] Member Role: Beauty Operator Apprentice Care Team Related Persons Name: LISBETH- INSULATOR HELPERINDRA Address: [address] [place] [address] Name: MANAGER BILINGUALGREGG Address: [address] [place] [address] Name: CARLOS PAZ Address: [address] [place] [address]
--- OUTSIDE RECORDS SUMMARY | 2023-07-16 14:55 | XMS_ITS | Continuity of Care Document ---
Author Name Unknown Organization [facility] Adult Address [address] [place] [address]- Care Team Providers Care Legal Advisor Name Role Phone Maribel Marquez NP Primary Care Physician Encounter [facility] [place] Date(s): 03/24/22 - 04/23/22 [facility] [address] [place] [address]- Allergies, Adverse Reactions, Alerts Substance Reaction Severity [...] tablet, 0 Refills, Maintenance, 01/04/22 11:12:00 EDT, [facility], Partial fill upon patient request if [...] 04/11/21 9:22:00 EDT, Route to Pharmacy Electronically, [facility], Partial fill upon patient request if the prescription is for a schedule II opioid drCheyanne. Start Date: 04/11/21 Stop Date: 01/06/22 Status: Ordered Flovent HFA 110 mcg/inh inhalation aerosol 2 puffs, Inhalation, 2 times a day, # 12 Gm, 1 Refills, [facility], 162, cm, 03/20/22 19:50:00 EDT, Height, [...] A DAY, # 60 tablet, 5 Refills, [facility],165, cm, 01/19/22 13:55:00 EDT, Height, 103, [...] 01/04/22 11:12:00 EDT, Route to Pharmacy Electronically, [facility], 165, cm, 12/19/21 10:41:00 EST, Height, 103, kg, 11/26/21 8:59:00 EST, DrRobi.. Start Date: 01/04/22 Status: Ordered Nicotine 2 mg gum 1 each = 2 mg, Chew, Every 2 hours, PRN as needed for smoking cessation, for 4 week(s), # 336 each,1 Refills, Acute 05/19/22 14:46:00 EDT, 03/24/22 14:46:00 EDT, Gum, [facility], Partial fill upon patient request if [...] 01/19/22 10:48:00 EDT, Route to Pharmacy Electronically, [facility], Partial fill upon patient request if [...] Refills, Maintenance, 05/09/21 8:45:00 EDT, SR Tablet, [facility], 165, cm, 04/11/21 7:42:00 EDT, Height, [...]
--- OUTSIDE RECORDS SUMMARY | 2023-07-16 14:55 | XMS_ITS | Continuity of Care Document ---
Author Name Unknown Organization [facility] ter Address [address] [place] [address]- Care Team Providers Care Repairer And Checker Name Role Phone Michelle Norris MD Primary Care Physician [phone] Encounter [facility] [place] Date(s): 10/23/19 - 10/25/[address] [address]- [facility] Discharge Disposition: Transferred to short-term general hospit Attending Physician: Beni LE, Jessica Hebert Admitting [...] Patient Refuses 1Early/Late Reason: Nursing Judgment Medications Ativan 1 mg oral tablet 1 tablet = 1 mg, By Mouth, PRN anxiety, 0 Refills, Maintenance, 10/24/19 21:55:00 EST Start Date: 10/24/19 Status: Ordered Claritin 10 mg oral tablet 10 mg, 1, tablet, By Mouth, Daily, # 30 tablet, Refills 0, Maintenance, 10/24/19 21:56:00 EST Start Date: 10/24/19 Status: Ordered Cogentin Tablet 1 mg, By Mouth, PRN, Refills 0, Maintenance, eps, 10/24/19 21:57:00 EST Start Date: 10/24/19 Status: Ordered Colace sodium 100 mg oral capsule 100 mg, 1, capsule, By Mouth, 2 times a day, PRN, # 20 capsule, Refills 0, Maintenance, for constipation, 10/24/19 21:58:00 EST Start Date: 10/24/19 Status: Ordered duloxetine 30 mg oral enteric coated capsule See Instructions, take 3 capsules ( = 90 mg ) daily for mood/anxiety, # 45 capsule, 1 Refills, Maintenance, 08/07/19 9:30:53 EDT, Capsule Start Date: 08/07/19 Status: Ordered Flonase 50 mcg/inh nasal spray 1 sprays, Nares, Both, 2 times a day, # 16 Gm, 0 Refills, Maintenance, 10/24/19 21:58:00 EST, [place] Start Date: 10/24/19 Status: Ordered Flovent HFA 220 mcg/inh inhalation [...] 08/07/19 9:36:46 EDT, Route to Pharmacy Electronically, NCPDP_ID- [id number], [facility] Start Date: 08/07/19 Status: Ordered montelukast 10 mg oral tablet 10 mg, By Mouth, Daily, for allergies, # 15 tablet, Refills 1, Tot. Refills 1, Maintenance, 08/07/19 9:37:10 EDT, Route to Pharmacy Electronically, NCPDP_ID- [id number], [facility] Start Date: 08/07/19 Status: Ordered Nicoderm C-Q 21 mg/24 hr transdermal film, extended release 1 patch, Topically, Daily, for nicotine cravings, # 30 patch, 0 Refills, Maintenance, 08/07/19 9:46:49 EDT, Patch Start Date: 08/07/19 Status: Ordered norethindrone 0.35 mg oral tablet 1 tablet = 0.35 mg, By Mouth, Daily, # 28 tablet, 0 Refills, Maintenance, 10/24/19 21:58:00 EST, Tablet Start Date: 10/24/19 Status: Ordered OXcarbazepine 300 mg oral tablet 300 mg, By Mouth, 3 times a day, mood stabilizer, # 45 tablet, Refills 1, Tot. Refills 1, Maintenance, 08/07/19 9:37:48 EDT, Route to Pharmacy Electronically, NCPDP_ID-[id number], [facility] Start Date: 08/07/19 Status: Ordered perphenazine [...] 08/07/19 9:47:08 EDT, Route to Pharmacy Electronically, NCPDP_ID-[id number], [facility] Start Date: 08/07/19 Status: Ordered prazosin 2 mg oral capsule 1 capsule = 2 mg, By Mouth, 2 times a day, 0 Refills, Maintenance, 10/24/19 21:50:00 EST Start Date: 10/24/19 Status: Ordered PriLOSEC OTC 20 mg oral delayed release tablet 1 tablet = 20 mg, By Mouth, Daily, 0 Refills, Maintenance, 10/24/19 21:59:00 EST Start Date: 10/24/19 Status: Ordered simvastatin 20 mg oral tablet See Instructions, take one and a half tablet ( 30 mg ) daily for hyperlipidemia, # 30 tablet, Refills 1, Tot. Refills 1, Maintenance, 08/07/19 9:42:48 EDT, Instructions Replace Required Details, [id number] Start Date: 08/07/19 Status: Ordered traZODone 150 mg oral tablet 1 tablet = 150 mg, By Mouth, Daily at bedtime, for sleep, # 15 tablet, 1 Refills, Maintenance, 08/07/19 9:47:34 EDT, Tablet Start Date: 08/07/19 Status: Ordered Ventolin HFA 108 mcg/inh inhalation aerosol with adapter 2 puffs, Inhalation, 4 times a day, PRN for wheezing, # 8 Gm, 0 Refills, Maintenance, 10/24/19 22:00:00 EST, Aerosol Start Date: 10/24/19 Status: Ordered verapamil 240 mg/12 hours oral [...] Exam Date Time Procedure Performing Provider Status 10/23/19 8:27 PM Chest 2 Views Frontal and Lat Karena Myrick; Auth (Verified) Notes: (Chest 2 Views Frontal and Lat) Reason For Exam: Shortness of Breath, Fever;Other: RESULT: Chest 2 Views Frontal and Lat Chest 2 Views Frontal and Lat Reason: Other:; Shortness of Breath, Fever; Clinical Question(s): Pneumonia COMPARISON: 06/21/2019. FINDINGS: LINES AND TUBES: None. LUNGS AND PLEURA: Clear lungs. Normal pulmonary vascularity. No pleural effusion. No pneumothorax. HEART, MEDIASTINUM AND HENRY: Heart is normal in size. Normal mediastinal and hilar contour. BONES AND SOFT TISSUES: No acute abnormality. IMPRESSION: No acute cardiopulmonary pathology. WSN: [id number] Dictated By: Donavon Robert MD Dictated Date/Time: 10/23/19 8:33 pm Reviewed By: Donavon Robert MD Signed By: Donavon Robert MD Signed Date/Time: 10/23/19 8:33 pm Transcribed By: DAVIS Transcribed Date/Time: 10/23/19 8:33 pm Vital Signs Most recent to oldest [Reference Range]: 1 2 3 4 Oxygen Saturation [94-100 %] 99 % (10/24/19 7:30 PM) 99 % (10/24/19 2:10 PM) 96 % (10/24/19 8:36 AM) Pulse Rate [55-90 bpm] 104 bpm *H* (10/24/19 7:30 PM) 101 bpm *H* (10/24/19 2:10 PM) 95 bpm *H* (10/24/19 8:36 AM) Blood Pressure [90-138/55-84 mm Hg] 132/88mm Hg (10/24/19 7:30 PM) 130/76mm Hg (10/24/19 2:10 PM) 120/87mm Hg (10/24/19 8:36 AM) 120/87mm Hg (10/24/19 8:36 AM) Respiratory Rate [16-30 br/min] 18 br/min (10/24/19 7:30 PM) 18 br/min (10/24/19 2:10 PM) 16 br/min (10/24/19 8:36 AM) Temperature [96.8-100.4 DegF] 97.8 DegF (10/24/19 7:30 PM) 97.6 DegF (10/24/19 2:10 PM) 98.6 DegF (10/24/19 8:36 AM) Mode of Delivery (Oxygen) Room air (10/24/19 7:30 PM) Room air (10/24/19 2:10 PM) Room air (10/24/19 8:36 AM) Blood pressure sites Arm, right (10/24/19 7:30 PM) Arm, right (10/24/19 2:10 PM) Arm, right (10/24/19 8:36 AM) Temperature Route Oral (10/24/19 7:30 PM) Oral (10/24/19 2:10 PM) Oral (10/24/19 8:36 AM) Social History Social History Type Response Smoking Status 10 or more cigarette s (1/2 pack or more)/day in last 30 days; Use: smokes 1 pack a day entered on: 05/10/19 Sex Female
--- OUTSIDE RECORDS SUMMARY | 2023-07-16 14:55 | XMS_ITS | Continuity of Care Document ---
Author Name Unknown Organization [facility] Address [address] [place] [address]- Care Team Providers Care Tube Closing Machine Operator Name Role Phone Maribel Marquez NP Primary Care Physician Encounter [facility] [place] Date(s): 01/10/23 - 02/28/23 [facility] [address], [place] [address] Attending Physician: Maribel Marquez NP Allergies, Adverse Reactions, Alerts Substance Reaction Severity Status codeine Active penicillin Active predniSONE Active sulfa drugs Active Macrobid Active Zithromax Active Seafood Active Geodon Active lithium 1 [...] 10:33:00 EST, Inhaler, Route to Pharmacy Electronically, NCPDP_ID-[id number], [facility], 163, cm, 11/16/22 9:43:00 EST, Height, 97.3,... Start Date: 11/16/22 Status: Ordered atorvastatin 10 mg oral tablet 1 tablet = 10 mg, By Mouth, Daily at bedtime, # 30 tablet, 0 Refills, Maintenance, 11/16/22 10:33:00 EST, Tablet, [facility], Partial fill upon patient request if [...] 0 Refills, Maintenance, 11/16/22 10:33:00 EST, Tablet, [facility], Partial fill upon patient request if [...] 11/16/22 10:34:00 EST, Route to Pharmacy Electronically, [facility], Partial fill upon patient request if [...] 02/12/23 10:51:00 EDT, [facility] [...] 60 tablet, 1 Refills, Maintenance,02/22/23 10:08:00 EDT, [facility], 146, cm, 02/05/23 20:22:00 EDT, Height, [...] Start Date: 01/06/23 Status: Ordered nystatin topical 733527 u/gm cream 1 application, Topically, 2 times a day, # 15 Gm, 0 Refills, Maintenance, 01/05/23 15:04:00 EDT, Cream, [facility], Partial fill upon patient request if the prescription is for a schedule II opioid drug., 1 application Topically 2 times a da... Start Date: 01/05/23 Status: Ordered nystatin topical [id number] u/gm cream 0 Refills, Maintenance, 01/06/23 18:05:00 [...] 11/16/22 10:34:00 EST, Route to Pharmacy Electronically, [facility], Partial fill upon patient request if [...] Maintenance,11/16/22 10:34:00 EST, Route to Pharmacy Electronically, [facility], Partial fill upon patient request if [...] Team Personnel Name: Rudi Ruiz RN Position: [facility] ED RN W/OE and Tasks Member Role: Primary Care Nurse Name: Alicja Riggs RN Position: [facility] RN Member Role: Primary Care Nurse Name: Ros Fu RN Position: [facility] RN Member Role: Primary Care Nurse Name: Hilda Mccabe RN Position: [facility] RN Member Role: Primary Care Nurse Name: Rosana Kearney RN Position: [facility] SN RN Member Role: Primary Care Nurse Name: Wil Flood RN Position: [facility] RN Member Role: Primary Care Nurse Name: Gagandeep Sheldon RN Position: [facility] RN Member Role: Primary Care Nurse Name: Chip Morton Position: [facility] Outreach Member Role: Lifetime Consulting Physician Name: Alba Daily RN Position: [facility] RN Member Role: Primary Care Nurse Name: Maribel Marquez NP Position: [facility] PCO Associate Professional Member Role: PCP Address: Address: [address] [place] [id number]- [place] Name: Jose Ramirez RN Position: [facility] RN Member Role: Primary Care Nurse Name: Brittany Butts RN Position: [facility] AMB Nurse Member Role: Primary Care Nurse Name: Pauline Mcadams RN Position: [facility] RN Member Role: Primary Care Nurse Name: Mary Sánchez RN Position: [facility] RN Member Role: Primary Care Nurse Name: Shama Rosado RN Position: [facility] RN Member Role: Primary Care Nurse Name: Jackie Snyder RN Position: [facility] RN Member Role: Primary Care Nurse Name: Jay Burks NP Position: Reference Physician Member Role: Primary Care Nurse Address: Address: [address] [place] [address] [address] [facility] [place] [address]- [place] Name: Parvez Kaba MD Position: [facility] Renal MD Member Role: Lifetime Consulting Physician Address: Address: [address] [place] [address] [facility] [place] [address]- [place] Name: Mirna Paul RN Position: [facility] OB RN Member Role: Primary Care Nurse Name: Latonya Rahman RN Position: [facility] Onco RN Member Role: Primary Care Nurse Name: Viki Gonzalez RN Position: [facility] RN Member Role: Primary Care Nurse Name: Claudia Presley RN Position: [facility] RN Member Role: Primary Care Nurse Name: Iris Villa RN Position: [facility] Hospital Statistical Machine Servicer Member Role: Primary Care Nurse Care Team Related Persons Name: JO-ANN ROMANHR ANALYSTINDRA Address: [address] [place] [address] Name: SALES APPOINTMENT COORDINATORGREGG Address: [address] [place] [address] Name: CARLOS PAZ Address: home [address] [place] [address]
--- OUTSIDE RECORDS SUMMARY | 2023-07-16 14:55 | XMS_ITS | Continuity of Care Document ---
Author Name Unknown Organization [facility] ter Address [address] [place] [address]- Care Team Providers Care Caravan Park And Camping Ground Manager Name Role Phone Maribel Marquez NP Primary Care Physician [place] [facility] [place] - 05/29/[address] [address]- Encounter Diagnosis Suicidal ideations(Final) - 05/28/22 Discharge Disposition: A-D/C Home Attending Physician: Cara [...] tablet, 0 Refills, Maintenance, 01/04/22 11:12:00 EDT, [facility], Partial fill upon patient request if the prescription is for a schedule II opioid drug., 165, cm, 12/19/21 10:41:00 EST, Height, 103,... Start Date: 01/04/22 Status: Ordered benztropine 1 mg oral tablet 1 mg, 1, tablet, By Mouth, Daily in AM, # 30 tablet, Refills 0, Maintenance, 04/04/22 22:47:00 EDT,Partial fill upon patient request if [...] 04/11/21 9:22:00 EDT, Route to Pharmacy Electronically, [facility], Partial fill upon patient request if the prescription is for a schedule II opioid drCheyanne. Start Date: 04/11/21 Stop Date: 01/06/22 Status: Ordered Flovent HFA 110 mcg/inh inhalation aerosol 2 puffs, Inhalation, 2 times a day, # 12 Gm, 1 Refills, [facility], 162, cm, 03/20/22 19:50:00 EDT, Height, [...] oral tablet 5 mg, Tablet, By Mouth, 05/29/22 9:00:00 EDT Start Date: 05/29/22 Stop Date: 05/29/22 Status: Completed lithium 450 mg oral tablet, extended release 1 tablet = 450 mg, By Mouth, 2 times a day, Maintenance, 11/08/21 12:46:00 EST, ER Tablet, ; Start Date: 11/08/21 Status: Ordered metFORMIN 500 mg oral tablet See Instructions, TAKE 1 EACH BY MOUTH 2 TIMES A DAY, # 60 tablet, 5 Refills, [facility],165, cm, 01/19/22 13:55:00 EDT, Height, 103, [...] 01/04/22 11:12:00 EDT, Route to Pharmacy Electronically, [facility], 165, cm, 12/19/21 10:41:00 EST, Height, [...] 01/19/22 10:48:00 EDT, Route to Pharmacy Electronically, [facility], Partial fill upon patient request if [...] Maintenance, 05/09/21 8:45:00 EDT, SR Tablet, [facility], 165, cm, 04/11/21 7:42:00 EDT, Height, [...] Range]: 1 2 3 Height 163 cm (05/28/22 8:02 PM) Weight 95 kg (05/28/22 8:02 PM) Oxygen Saturation [94-100 %] 98 % (05/29/22 11:48 AM) 99 % (05/29/22 8:33 AM) 95 % (05/29/22 4:42 AM) Pulse Rate [55-90 bpm] 73 bpm (05/29/22 11:48 AM) 63 bpm (05/29/22 8:33 AM) 76 bpm (05/29/22 4:42 AM) Blood Pressure [90-138/55-84 mm Hg] 110/69mm Hg (05/29/22 11:48 AM) 117/73mm Hg (05/29/22 8:33 AM) 117/73mm Hg (05/29/22 8:30 AM) Respiratory Rate [16-30 br/min] 18 br/min (05/29/22 11:48 AM) 18 br/min (05/29/22 8:33 AM) 18 br/min (05/29/22 4:42 AM) Temperature [96.8-100.4 DegF] 97.4 DegF (05/29/22 8:33 AM) 98.3 DegF (05/28/22 8:02 PM) Mode of Delivery (Oxygen) Room air (05/29/22 11:48 AM) Room air (05/29/22 8:33 AM) Room air (05/29/22 4:42 AM) Temperature Route Oral (05/29/22 8:33 AM) Oral (05/28/22 8:02 PM) Dry Weight 95 kg (05/28/22 8:02 PM) Social History Social History Type Response Smoking Status 10 or more cigarette s (1/2 pack or more)/day in last 30 days; Type: Cigarettes; Other: Reports smoking 1/2-1 packs/day, ending on level of stress; Started at age: 25; entered on: 12/31/20 Sex
--- OUTSIDE RECORDS SUMMARY | 2023-07-16 14:55 | XMS_ITS | Continuity of Care Document ---
Author Name Unknown Organization [facility] ter Address [address] [place] [address]- Care Team Providers Care Cardiology Physician Assistant Name Role Phone Maribel Marquez NP Primary Care Physician [phone] [place] [facility] [place] - 05/07/[address] [address]- Encounter Diagnosis Suicidal ideation(Final) - 05/07/22 Bipolar disorder(Final) - 05/07/22 Borderline personality disorder(Final) - 05/07/22 Discharge Disposition: A-D/C Home Attending Physician: Ros [...] tablet, 0 Refills, Maintenance, 01/04/22 11:12:00 EDT, [facility], Partial fill upon patient request if [...] a day, # 12 Gm, 1 Refills, [facility], 162, cm, 03/20/22 19:50:00 EDT, Height, [...] A DAY, # 60 tablet, 5 Refills, [facility],165, cm, 01/19/22 13:55:00 EDT, Height, 103, [...] 01/04/22 11:12:00 EDT, Route to Pharmacy Electronically, [facility], 165, cm, 12/19/21 10:41:00 EST, Height, 103, kg, 11/26/21 8:59:00 EST, . Start Date: 01/04/22 Status: Ordered Nicotine 2 mg gum 1 each = 2 mg, Chew, Every 2 hours, PRN as needed for smoking cessation, for 4 week(s), # 336 each,1 Refills, Acute 05/19/22 14:46:00 EDT, 03/24/22 14:46:00 EDT, Gum, [facility], Partial fill upon patient request if [...] 01/19/22 10:48:00 EDT, Route to Pharmacy Electronically, [facility], Partial fill upon patient request if [...] Refills, Maintenance, 05/09/21 8:45:00 EDT, SR Tablet, [facility], 165, cm, 04/11/21 7:42:00 EDT, Height, [...] 1 Oxygen Saturation [94-100 %] 97 % (05/07/22 11:52 AM) Pulse Rate [55-90 bpm] 63 bpm (05/07/22 11:52 AM) Blood Pressure [90-138/55-84 mm Hg] 139/ 80mm Hg *H* (05/07/22 11:52 AM) Respiratory Rate [16-30 br/min] 18 br/mi n (05/07/22 11:52 AM) Temperature [96.8-100.4 DegF] 98.0 DegF (05/07/22 11:52 AM) Mode of Delivery (Oxygen) Room air (05/07/22 11:52 AM) Blood pressure sites Arm, right (05/07/22 11:52 AM) Temperature Route Oral (05/07/22 11:52 AM) Social History Social History Type Response Smoking Status 10 or more cigarette s (1/2 pack or more)/day in last 30 days; Type: Cigarettes; Other: Reports smoking 1/2-1 packs/day, ending on level of stress; Started at age: 25; entered on: 12/31/20 Sex
--- OUTSIDE RECORDS SUMMARY | 2023-07-16 14:55 | XMS_ITS | Continuity of Care Document ---
Author Name Unknown Organization [facility] Address [address] [place] [address]- Care Team Providers Care Pit Inspector Name Role Phone Maribel Marquez NP Primary Care Physician [place] [facility] [place]21 [facility] [address] [place] [address]- Allergies, Adverse Reactions, Alerts Substance Reaction Severity [...] 0 Refills, Maintenance, 12/23/20 16:38:00 EST, Tablet, [facility], Partial fill [...] 0 Refills, Maintenance, 02/09/20 10:08:00 EDT, Tablet, [facility], 165, cm, 02/08/20 19:47:00 EDT, Height, 104.5, kg,02/07/20 8:15:00 EDT, Dry Weight Start Date: 02/09/20 Status: Ordered doxazosin 1 mg oral tablet 3 mg, 3, tablet, By Mouth, Daily at bedtime, # 90 tablet, Refills 0, Tot. Refills 0, Maintenance, 07/22/20 18:41:00 EDT, Route to Pharmacy Electronically, [facility], 163.5, cm, 07/22/20 18:29:00 EDT, Height, 102.5, kg, 07/18/20 21:04:00 EDT... Start Date: 07/22/20 Status: Ordered ferrous sulfate 325 mg oral enteric coated tablet 325 mg, 1, tablet, By Mouth, Daily, # 30 tablet, Refills 0, Tot. Refills 0, Maintenance, 12/23/20 15:38:00 EST, Route to Pharmacy Electronically, [facility], Partial fill upon patient request if the prescription is for a schedule II opioid d... Start Date: 12/23/20 Status: Ordered Flovent HFA 110 mcg/inh inhalation aerosol 2 puffs = 220 mcg, Inhalation, 2 times a day, # 1 each, 0 Refills, Maintenance, 12/23/20 15:38:00 EST, Aerosol, [facility], 162, cm, 12/23/20 10:43:00 EST, Height, 122.1, kg, 12/21/20 16:25:00 EST, Dry Weight Start Date: 12/23/20 Status: Ordered Haldol Decanoate decanoate 100 mg/ml injectable solution = 100 mg, Intramuscular, Every 28 days, last dose given on 09/17/2020. Next due 10/15/20., # 1 each, 0Refills, Soft Stop, 07/22/20 18:42:00 EDT, Solution, [facility], 163.5, cm, 07/22/20 18:29:00 EDT, Height, 102.5, kg, 07/18/20 21:04:00 EDT,... Start Date: 07/22/20 Status: Ordered lisinopril 5 mg oral tablet 5 mg, 1, tablet, By Mouth, Daily, # 30 tablet, Refills 0, Tot. Refills 0, Maintenance, 02/09/20 10:10:00 EDT, Route to Pharmacy Electronically, [facility], 165, cm, 02/08/20 19:47:00 EDT, Height, [...] 0 Refills, Maintenance, 12/23/20 16:38:00 EST, Tablet, [facility], Partial fill upon patient request if the prescription is for a schedule II opioid drug., 162, cm, 12/23/20 15:59:00 EST... Start Date: 12/23/20 Stop Date: 01/22/21 Status: Ordered montelukast 10 mg oral tablet 10 mg, 1, tablet, By Mouth, Daily, # 30 tablet, Refills 0, Tot. Refills 0, Maintenance, 02/09/20 10:11:00 EDT, Route to Pharmacy Electronically, [facility], 165, cm, 02/08/20 19:47:00 EDT, Height, 104.5, kg, 02/07/20 8:15:00 EDT, Dry Weight Start Date: 02/09/20 Status: Ordered norethindrone 0.35 mg oral tablet 1 tablet = 0.35 mg, By Mouth, Daily, # 30 tablet, 0 Refills, Maintenance, 02/09/20 10:07:00 EDT, Tablet, [facility], 165, cm, 02/08/20 19:47:00 EDT, Height, [...] Refills, Maintenance, 12/23/20 15:38:00 EST, REC Powder, [facility], Partial fill upon patient [...] Refills, Maintenance, 02/09/20 10:05:00 EDT, Inhaler, [facility], 165, cm, 02/08/20 19:47:00 EDT, Height, 104.5, kg, 02/07/20 8:15:00 EDT, Dry Weight Start Date: 02/09/20 Stop Date: 03/10/20 Status: Ordered verapamil 240 mg/12 hours oral tablet, extended release 1 tablet = 240 mg, By Mouth, Daily at bedtime, # 30 tablet, 0 Refills, Maintenance, 02/09/20 10:14:00 EDT, SR Tablet, [facility], 165, cm, 02/08/20 19:47:00 EDT, Height, [...]
--- OUTSIDE RECORDS SUMMARY | 2023-07-16 14:55 | XMS_ITS | Continuity of Care Document ---
Author Name Unknown Organization [facility] Adult Address [address] [place] [address]- Care Team Providers Care Brim Raiser Name Role Phone Maribel Marquez NP Primary Care Physician Encounter [facility] [facility] [place] Date(s): 01/12/22 - 02/11/22 [facility] [address] [place] [address]- Allergies, Adverse Reactions, Alerts Substance Reaction Severity Status codeine Active lithium 1 Active penicillin Active predniSONE Active Macrobid Active Zithromax Active Seafood Active Geodon Active sulfa drugs Active 1pt reports 01/17/13 started taking lithium about a week ago. Immunizations Given and Recorded Vaccine Date Status Refusal Reason influenza virus vaccine, inactivated 07/12/21 Russel rded influenza virus vaccine, inactivated 07/20/20 Give n influenza virus vaccine, inactivated 09/03/19 Russle rded influenza virus vaccine, inactivated 08/28/18 Russel [...] tablet, 0 Refills, Maintenance, 01/04/22 11:12:00 EDT, [facility], Partial fill upon patient request if [...] 04/11/21 9:22:00 EDT, Route to Pharmacy Electronically, [facility], Partial fill upon patient request if the prescription is for a schedule II opioid drCheyanne. Start Date: 04/11/21 Stop Date: 01/06/22 Status: Ordered Flovent HFA 110 mcg/inh inhalation aerosol 2 puffs, Inhalation, 2 times a day, # 12 Gm, 2 Refills, [facility], 165, cm, 12/19/21 10:41:00 EST, Height, [...] 04/04/22 12:34:00 EDT, 01/04/22 12:34:00 EDT, Tablet, [facility], Partial fill upon patient request if the prescription is f... Start Date: 01/04/22 Stop Date: 04/04/22 Status: Ordered metFORMIN 500 mg oral tablet See Instructions, TAKE 1 EACH BY MOUTH 2 TIMES A DAY, # 60 tablet, 5 Refills, [facility],165, cm, 01/19/22 13:55:00 EDT, Height, 103, kg, 11/26/21 8:59:00 EST, Dry Weight Start Date: 02/03/22 Status: Ordered MiraLax oral powder for reconstitution = 17 Gm, By Mouth, 2 times a day, PRN Constipation, dissolve in water before taking, # 255 Gm, 0 Refills, Acute 02/13/22 14:30:00 EDT, 01/30/22 14:10:00 EDT, REC Powder, [facility], Partialfill upon patient request if the [...] 01/04/22 11:12:00 EDT, Route to Pharmacy Electronically, [facility], 165, cm, 12/19/21 10:41:00 EST, Height, 103, kg, 11/26/21 8:59:00 EST, Start Date: 01/04/22 Status: Ordered nicotine 21 mg/24 hr transdermal film, extended release 1 patch, Topically, Daily, for 30 days, # 30 patch, 0 Refills, Acute 02/18/22 14:31:00 EDT, 01/19/22 14:31:00 EDT, Patch, [facility], Partial fill upon patient request if [...] 01/19/22 10:48:00 EDT, Route to Pharmacy Electronically, [facility], Partial fill upon patient request if [...] Refills, Maintenance, 05/09/21 8:45:00 EDT, SR Tablet, [facility], 165, cm, 04/11/21 7:42:00 EDT, Height, [...]
--- OUTSIDE RECORDS SUMMARY | 2023-07-16 14:55 | XMS_ITS | Continuity of Care Document ---
Author Name Unknown Organization [facility] ter Address [address] [place] [address]- Care Team Providers Care Communication Manager Name Role Phone Maribel Marquez NP Primary Care Physician [phone] [place]counter [facility] [place](s): 01/07/23 - 01/08/[address] [address]- Encounter Diagnosis Auditory hallucinations(Final) - 01/07/23 Discharge Disposition: Transfer to Psych Facility Attending Physician: Jessica Bazan MD Admitting Physician: [...] 10:33:00 EST, Inhaler, Route to Pharmacy Electronically, [id number], [facility], 163, cm, 11/16/22 9:43:00 EST, Height, 97.3,... Start Date: 11/16/22 Status: Ordered atorvastatin 10 mg oral tablet 1 tablet = 10 mg, By Mouth, Daily at bedtime, # 30 tablet, 0 Refills, Maintenance, 11/16/22 10:33:00 EST, Tablet, [facility], Partial fill upon patient request if [...] 11/16/22 10:33:00 EST, Route to Pharmacy Electronically, [facility], Partial fill upon patientrequest if the [...] 0 Refills, Maintenance, 11/16/22 10:33:00 EST, Tablet, [facility], Partial fill [...] 11/16/22 10:34:00 EST, Route to Pharmacy Electronically, [facility], Partial fill upon patient request if the prescription is for a schedule II opioid d... Start Date: 11/16/22 Stop Date: 08/13/23 Status: Ordered FLUoxetine 20 mg oral capsule 80 mg, 4, capsule, By Mouth, Daily in AM, # 120 capsule, Refills 0, Tot. Refills 0, Maintenance, 11/16/22 10:34:00 EST, Route to Pharmacy Electronically, [facility], Partial fill upon patient request if [...] 11/16/22 10:34:00 EST, Route to Pharmacy Electronically, [facility], Partial fill upon patientrequest if the prescription is for a schedule II op... Start Date: 11/16/22 Status: Ordered fluPHENAZine 5 mg oral tablet Refills 0, Maintenance, 01/06/23 18:05:00 EDT, Partial fill upon patient request if the prescription is for a schedule II opioid drug. Start Date: 01/06/23 Status: Ordered lisinopril 5 mg oral tablet 5 mg, Tablet, By Mouth, 01/08/23 9:00:00 EDT Start Date: 01/08/23 Stop Date: 01/08/23 Status: Completed lisinopril 5 mg oral tablet 5 mg, 1, tablet, By Mouth, Daily, # 30 tablet, Refills 0, Tot. Refills 0, Maintenance, 11/16/22 10:34:00 EST, Route to Pharmacy Electronically, [facility], Partial fill upon patient requestif the [...] 0 Refills, Maintenance, 11/16/22 10:34:00 EST, Tablet, [facility], Partial fill [...] 0 Refills, Maintenance, 11/16/22 10:34:00 EST, Tablet, [facility], Partial fill [...] 11/16/22 10:34:00 EST, Route to Pharmacy Electronically, [facility], Partial fill upon patient request if the prescription is for a schedule I... Start Date: 11/16/22 Status: Ordered montelukast 10 mg oral tablet Refills 0, Maintenance, 01/06/23 18:05:00 EDT, Partial fill upon patient request if the prescription is for a schedule II opioid drug. Start Date: 01/06/23 Status: Ordered nystatin topical 242542 u/gm cream 1 application, Topically, 2 times a day, # 15 Gm, 0 Refills, Maintenance, 01/05/23 15:04:00 EDT, Cream, [facility], Partial fill upon patient request if the prescription is for a schedule II opioid drug., 1 application Topically 2 times a da... Start Date: 01/05/23 Status: Ordered nystatin topical 935023 u/gm cream 0 Refills, Maintenance, 01/06/23 18:05:00 [...] 11/16/22 10:34:00 EST, Route to Pharmacy Electronically, [facility], Partial fill upon patient request if [...] Maintenance,11/16/22 10:34:00 EST, Route to Pharmacy Electronically, [facility], Partial fill upon patient request if [...] 3 Oxygen Saturation [94-100 %] 95 % (01/08/23 8:27 AM) 100 % (01/08/23 6:07 AM) 98 % (01/07/23 7:35 PM) Pulse Rate [55-90 bpm] 94 bpm *H* (01/08/23 8:27 AM) 81 bpm (01/08/23 6:07 AM) 82 bpm (01/07/23 7:35 PM) Blood Pressure [90-138/55-84 mm Hg] 129/113mm Hg (01/08/23 8:27 AM) 129/113mm Hg (01/08/23 8:21 AM) 125/80mm Hg (01/08/23 6:07 AM) Respiratory Rate [16-30 br/min] 17 br/min (01/08/23 8:27 AM) 16 br/min (01/08/23 6:07 AM) 16 br/min (01/07/23 7:35 PM) Temperature [96.8-100.4 DegF] 97.2 DegF (01/08/23 8:27 AM) 97.7 DegF (01/08/23 6:07 AM) 98.1 DegF (01/07/23 7:35 PM) Mode of Delivery (Oxygen) Room air (01/08/23 8:27 AM) Room air (01/08/23 6:07 AM) Room air (01/07/23 7:35 PM) Blood pressure sites Arm, left (01/08/23 8:27 AM) Arm, right (01/08/23 6:07 AM) Arm, right (01/07/23 7:35 PM) Temperature Route Oral (01/08/23 8:27 AM) Oral (01/08/23 6:07 AM) Oral (01/07/23 7:35 PM) Social History Social History Type Response [...] Professional Member Role: PCP Address: Address: [address] [place] [address]- Name: Jose Ramirez RN Position: [facility] [...] Member Role: Primary Care Nurse Name: Kimmie RECYCLING ATTENDANTJay Position: Reference Physician Member Role: Primary Care Nurse Address: Address: [address] [facility] [address] Clinical & [place] [address]- Name: Parvez Kaba MD Position: [facility] Renal MD Member Role: Lifetime Consulting Physician Address: Address: [address] [place] [address] [facility] [place] [address]- [place] Name: Yoana Ledezma RN Position: [facility] [...] Villa RN Position: [facility] Hospital Wind Turbine Installer Member Role: Primary Care Nurse [facility] Attending Position: [facility] ED Attendings Patient Name: Milton Denis RN Position: [facility] ED RN W/OE and Tasks Member Role: Patient Care Provider Name: Jessica Bazan MD Position: [facility] ED Medicine MD Member Role: Admitting Physician Address: Address: [address] [facility] [place] [address]- [place] Care Team Related Persons Name: JO-ANN ROMANMACHINE OPERATORMILTON Address: [address] [place] [address] Name: SPRING COILER HANDGREGG Address: [address] [place] [address] Name: CARLOS PAZ Address: home [address] [place] [address]
--- OUTSIDE RECORDS SUMMARY | 2023-07-16 14:55 | XMS_ITS | Continuity of Care Document ---
Author Name Unknown Organization [facility] ter Address [address] [place] [address]- Care Team Providers Care Marketing Ambassador Name Role Phone Maribel Marquez NP Primary Care Physician Encounter [facility] [place] Date(s): 01/20/22 - 01/20/[address] [address]- Discharge Disposition: A-D/C Home Attending Physician: Val [...] tablet, 0 Refills, Maintenance, 01/04/22 11:12:00 EDT, [facility], Partial fill upon patient request if [...] a day, # 12 Gm, 2 Refills, [facility], 165, cm, 12/19/21 10:41:00 EST, Height, [...] 04/04/22 12:34:00 EDT, 01/04/22 12:34:00 EDT, Tablet, [facility], Partial fill upon patient request if the prescription is f... Start Date: 01/04/22 Stop Date: 04/04/22 Status: Ordered metFORMIN 500 mg oral tablet 1 each = 500 mg, By Mouth, 2 times a day, # 180 each, 1 Refills, Maintenance, 05/09/21 8:43:00 EDT,Tablet, [facility], Partial fill upon [...] 02/02/22 14:24:00 EDT, 01/19/22 14:24:00 EDT, Tablet, [facility], Partial [...] 0 Refills, Maintenance, 02/09/20 10:05:00 EDT, Inhaler, [facility], 165, cm, 02/08/20 19:47:00 EDT, Height, 104.5, kg, 02/07/20 8:15:00 EDT, Dry Weight Start Date: 02/09/20 Stop Date: 03/10/20 Status: Ordered verapamil 240 mg/12 hours oral tablet, extended release 1 tablet = 240 mg, By Mouth, Daily at bedtime, # 90 tablet, 1 Refills, Maintenance, 05/09/21 8:45:00 EDT, SR Tablet, [facility], 165, cm, 04/11/21 7:42:00 EDT, Height, [...]
--- OUTSIDE RECORDS SUMMARY | 2023-07-16 14:56 | XMS_ITS | Continuity of Care Document ---
Author Name Unknown Organization [facility] ter Address [address] [place] [address]- Care Team Providers Care Certified Nuclear Medicine Technologist Name Role Phone Maribel Marquez NP Primary Care Physician [place] [facility] [place] - 11/08/[address] [address]- Encounter Diagnosis Depressed(Final) - 11/07/21 Discharge Disposition: A-D/C Home Attending Physician: Robby [...] 07/22/20 18:41:00 EDT, Route to Pharmacy Electronically, [facility], 163.5, cm, 07/22/20 18:29:00 EDT, Height, 102.5, kg, 07/18/20 21:04:00 EDT... Start Date: 07/22/20 Status: Ordered ferrous sulfate 325 mg oral enteric coated tablet 325 mg, 1, tablet, By Mouth, Daily, # 90 tablet, Refills 2, Tot. Refills 2, Maintenance, 04/11/21 9:22:00 EDT, Route to Pharmacy Electronically, [facility], Partial fill upon patient request if the prescription is for a schedule II opioid . Start Date: 04/11/21 Stop Date: 01/06/22 Status: Ordered Flovent HFA 110 mcg/inh inhalation aerosol 2 puffs = 220 mcg, Inhalation, 2 times a day, # 3 each, 3 Refills, Maintenance, 05/09/21 8:41:00 EDT, Aerosol, [facility], 165, cm, 04/11/21 7:42:00 EDT, Height, [...] oral tablet 5 mg, Tablet, By Mouth, 11/08/21 9:00:00 EST Start Date: 11/08/21 Stop Date: 11/08/21 Status: Completed lisinopril 5 mg oral tablet 5 mg, 1, tablet, By Mouth, Daily, # 90 tablet, Refills 1, Tot. Refills 1, Maintenance, 05/09/21 8:43:00 EDT, Route to Pharmacy Electronically, [facility], 165, cm, 04/11/21 7:42:00 EDT, Height, [...] is for a schedule II opioid drug., [id number] j, 04/11/21 7:42:00 EDT, H... Start Date: 05/09/21 [...] 05/09/21 8:45:00 EDT, Route to Pharmacy Electronically, [facility], 165, cm, 04/11/21 7:42:00 EDT, Height, [...] Start Date: 11/08/21 Status: Ordered nystatin topical [id number] u/gm cream 1 application, Topically, 2 times [...] Gm, 5 Refills, Acute, 05/10/21 11:59:00 EDT, [facility], 15, TAKE 17 GM BY MOUTH [...] 0 Refills, Maintenance, 02/09/20 10:05:00 EDT, Inhaler, [facility], 165, cm, 02/08/20 19:47:00 EDT, Height, 104.5, kg, 02/07/20 8:15:00 EDT, Dry Weight Start Date: 02/09/20 Stop Date: 03/10/20 Status: Ordered verapamil 240 mg/12 hours oral tablet, extended release 1 tablet = 240 mg, By Mouth, Daily at bedtime, # 90 tablet, 1 Refills, Maintenance, 05/09/21 8:45:00 EDT, SR Tablet, [facility], 165, cm, 04/11/21 7:42:00 EDT, Height, [...] 3 Oxygen Saturation [94-100 %] 97 % (11/08/21 10:15 AM) 98 % (11/07/21 11:13 PM) Pulse Rate [55-90 bpm] 78 bpm (11/08/21 10:15 AM) 88 bpm (11/07/21 11:13 PM) Blood Pressure [90-138/55-84 mm Hg] 107/62mm Hg (11/08/21 10:15 AM) 128/90mm Hg (11/08/21 8:06 AM) 122/78mm Hg (11/07/21 11:13 PM) Respiratory Rate [16-30 br/min] 18 br/min (11/08/21 10:15 AM) 18 br/min (11/07/21 11:13 PM) Temperature [96.8-100.4 DegF] 98.2 DegF (11/08/21 10:15 AM) 98.2 DegF (11/07/21 11:13 PM) Liters per Minute 0 L/min (11/08/21 10:15 AM) Mode of Delivery (Oxygen) Room air (11/08/21 10:15 AM) Blood pressure sites Arm, left (11/08/21 10:15 AM) Temperature Route Oral (11/08/21 10:15 AM) Oral (11/07/21 11:13 PM) Social History Social History Type Response Smoking Status 10 or more cigarette s (1/2 pack or more)/day in last 30 days; Type: Cigarettes; Other: Reports smoking 1/2-1 packs/day, ending on level of stress; Started at age: 25; entered on: 12/31/20 Sex
--- OUTSIDE RECORDS SUMMARY | 2023-07-16 14:56 | XMS_ITS | Continuity of Care Document ---
Author Name Unknown Organization [facility] Adult Address [address] [place] [address]- Care Team Providers Care Law Office Manager Name Role Phone Maribel Marqeuz NP Primary Care Physician Encounter [facility] [place] Date(s): 09/26/22 - 10/26/22 [facility] [address] [place] [address]- Allergies, Adverse Reactions, Alerts Substance Reaction Severity [...] tablet, 1 Refills, Maintenance, 07/24/22 15:17:00 EDT, [facility], 165.2, cm, 07/19/22 10:30:00 EDT, Height, [...] 04/11/21 9:22:00 EDT, Route to Pharmacy Electronically, [facility], Partial fill upon patient request if the prescription is for a schedule II opioid dr... Start Date: 04/11/21 Stop Date: 01/06/22 Status: Ordered Flovent HFA 110 mcg/inh inhalation aerosol 2 puffs, Inhalation, 2 times a day, # 12 Gm, 1 Refills, [facility], 162, cm, 03/20/22 19:50:00 EDT, Height, [...] 07/21/22 14:07:00 EDT, Route to Pharmacy Electronically, [facility], Partial fill upon patient requestif the prescription is for a schedule II opioid kaela... Start Date: 07/21/22 Stop Date: 04/17/23 Status: Ordered metFORMIN 500 mg oral tablet See Instructions, TAKE 1 EACH BY MOUTH 2 TIMES A DAY, # 60 tablet, 5 Refills, 10/24/22 10:55:00 EDT, [facility], 165.2, cm, 07/19/22 10:30:00 EDT, Height, [...] 10/04/22 15:29:00 EST, Route to Pharmacy Electronically, [facility], 157, cm, 10/01/22 6:31:00 EST, [...] 1 Refills, Maintenance, 06/23/22 16:17:00 EDT, Aerosol, [facility], Partial fill upon [...] 07/28/22 7:45:00 EDT, Route to Pharmacy Electronically, [facility], 165.2, cm, 07/19/22 10:30:00 EDT, Height, [...] Refills, Maintenance, 05/09/21 8:45:00 EDT, SR Tablet, [facility], 165, cm, 04/11/21 7:42:00 EDT, Height, [...] Rosana Kearney RN Position: [facility] AMB Nurse Member Role: Primary Care Nurse Name: Wil Flood RN Position: [facility] RN Member Role: Primary Care Nurse Name: Gagandeep Shledon RN Position: [facility] RN Member Role: Primary Care Nurse Name: Chip Morton Position: [facility] Outreach Member Role: Lifetime Consulting Physician Name: Alba Daily RN Position: [facility] RN Member Role: Primary Care Nurse Name: Maribel Marquez NP Position: [facility] PCO Associate Professional Member Role: PCP Address: Address: [address] [place] [id number]- Name: Jose Ramirez RN Position: [facility] ED RN [...] Member Role: Primary Care Nurse Address: Address: [address] [place] [address] Clinical & [place] [address]- Name: Parvez Kaba MD Position: [facility] Renal MD Member Role: Lifetime Consulting Physician Address: Address: [address] [place] [address] [facility] [place] [address]- [place] Name: Yoana Ledezma RN Position: [facility] [...] Care Nurse Name: Iris Villa RN Position: [facility] [employer] Vice President Member Role: Primary Care Nurse Care Team Related Persons Name: LISBETH- AIRDOX FITTERINDRA Address: [address] [place] [address] Name: BOAT CARPENTERGREGG Address: [address] [place] [address] Name: CARLOS PAZ Address: home [address] [place] [address]
--- OUTSIDE RECORDS SUMMARY | 2023-07-16 14:56 | XMS_ITS | Continuity of Care Document ---
Author Name Unknown Organization [facility] ter Address [address] [place] [address]- Care Team Providers Care Title Clerk Automobile Name Role Phone Maribel Marquez NP Primary Care Physician Encounter [facility] [place] Date(s): 04/01/22 - 04/02/[address] [address]- Encounter Diagnosis Tylenol ingestion(Final) - 04/02/22 Discharge Disposition: A-D/C Home Attending Physician: Britta Still DO Admitting Physician: Britta Still DO Referring Physician: Not on Staff, Referring [...] tablet, 0 Refills, Maintenance, 01/04/22 11:12:00 EDT, [facility], Partial fill upon patient request if [...] a day, # 12 Gm, 2 Refills, [facility], 165, cm, 12/19/21 10:41:00 EST, Height, [...] 04/04/22 12:34:00 EDT, 01/04/22 12:34:00 EDT, Tablet, [facility], Partial fill upon patient request if the prescription is f... Start Date: 01/04/22 Stop Date: 04/04/22 Status: Ordered metFORMIN 500 mg oral tablet See Instructions, TAKE 1 EACH BY MOUTH 2 TIMES A DAY, # 60 tablet, 5 Refills, [facility],165, cm, 01/19/22 13:55:00 EDT, Height, 103, [...] 01/04/22 11:12:00 EDT, Route to Pharmacy Electronically, [facility], 165, cm, 12/19/21 10:41:00 EST, Height, 103, kg, 11/26/21 8:59:00 EST, . Start Date: 01/04/22 Status: Ordered Nicotine 2 mg gum 1 each = 2 mg, Chew, Every 2 hours, PRN as needed for smoking cessation, for 4 week(s), # 336 each,1 Refills, Acute 05/19/22 14:46:00 EDT, 03/24/22 14:46:00 EDT, Gum, [facility], Partial fill upon patient request if [...] 01/19/22 10:48:00 EDT, Route to Pharmacy Electronically, [facility], Partial fill upon patient request if the prescription is for a schedule... Start Date: 01/19/22 Status: Ordered prazosin 1 mg oral capsule 4 mg, Capsule, By Mouth, 04/01/22 23:57:00 EDT Start Date: 04/01/22 Stop Date: 04/02/22 Status: Completed PROzac 40 mg oral capsule [...] Refills, Maintenance, 05/09/21 8:45:00 EDT, SR Tablet, [facility], 165, cm, 04/11/21 7:42:00 EDT, Height, 102.6, kg, 02/12/21 12:14:00 EDT, Dry Weight Start Date: 05/09/21 Status: Ordered Verapamil SR Tablet 240 mg, SR Tablet, By Mouth, 04/01/22 23:57:00 EDT Start Date: 04/01/22 Stop Date: 04/02/22 Status: Completed Problem List Condition Effective Dates [...] 4 Oxygen Saturation [94-100 %] 100 % (04/02/22 10:46 AM) 95 % (04/02/22 6:09 AM) 100 % (04/02/22 2:52 AM) Pulse Rate [55-90 bpm] 91 bpm *H* (04/02/22 10:46 AM) 64 bpm (04/02/22 6:09 AM) 79 bpm (04/02/22 4:14 AM) Blood Pressure [90-138/55-84 mm Hg] 109/72mm Hg (04/02/22 10:46 AM) 118/70mm Hg (04/02/22 6:09 AM) 160/85mm Hg *H* (04/02/22 4:14 AM) 160/85mm Hg *H* (04/02/22 4:14 AM) Respiratory Rate [16-30 br/min] 16 br/min (04/02/22 10:46 AM) 15 br/min *L* (04/02/22 2:52 AM) 18 br/min (04/02/22 12:40 AM) Temperature [96.8-100.4 DegF] 98.0 DegF (04/02/22 10:46 AM) 98.3 DegF (04/02/22 6:09 AM) 97.5 DegF (04/02/22 2:52 AM) Mode of Delivery (Oxygen) Room air (04/02/22 10:46 AM) Room air (04/02/22 6:09 AM) Room air (04/02/22 2:52 AM) Blood pressure sites Arm, left (04/02/22 10:46 AM) Arm, left (04/02/22 2:52 AM) Arm, left (04/01/22 7:01 PM) Temperature Route Oral (04/02/22 10:46 AM) Oral (04/02/22 6:09 AM) Oral (04/02/22 2:52 AM) Social History Social History Type Response Smoking Status 10 or more cigarette s (1/2 pack or more)/day in last 30 days; Type: Cigarettes; Other: Reports smoking 1/2-1 packs/day, ending on level of stress; Started at age: 25; entered on: 12/31/20 Sex
--- OUTSIDE RECORDS SUMMARY | 2023-07-16 14:56 | XMS_ITS | Continuity of Care Document ---
Author Name Unknown Organization [facility] ter Address [address] [place] [id number]- Care Team Providers Care Rail Director Name Role Phone Maribel Marquez NP Primary Care Physician Encounter [facility] [place] Date(s): 02/13/23 - 02/13/[address] [address]- Encounter Diagnosis Depression(Final) - 02/13/23 Discharge Disposition: A-D/C Home Attending Physician: Ros [...] 10:33:00 EST, Inhaler, Route to Pharmacy Electronically, NCPDP_[id number], [facility], 163, cm, 11/16/22 9:43:00 EST, Height, 97.3,... Start Date: 11/16/22 Status: Ordered atorvastatin 10 mg oral tablet 1 tablet = 10 mg, By Mouth, Daily at bedtime, # 30 tablet, 0 Refills, Maintenance, 11/16/22 10:33:00 EST, Tablet, [facility], Partial fill upon patient request if [...] 11/16/22 10:33:00 EST, Route to Pharmacy Electronically, [facility], Partial fill upon patientrequest if the [...] 0 Refills, Maintenance, 11/16/22 10:33:00 EST, Tablet, [facility], Partial fill upon patient request if [...] 11/16/22 10:34:00 EST, Route to Pharmacy Electronically, [facility], Partial fill upon patientrequest if the [...] 02/19/23 0:07:00 EDT, 02/12/23 0:07:00 EDT, Syrup, [facility], Partial fill upon patient request if the prescription is for a schedule II opioid... Start Date: 02/12/23 Stop Date: 02/19/23 Status: Ordered lisinopril 5 mg oral tablet 5 mg, 1, tablet, By Mouth, Daily, # 30 tablet, Refills 0, Tot. Refills 0, Maintenance, 02/12/23 10:51:00 EDT, Route to Pharmacy Electronically, [facility], Partial fill upon patient requestif the [...] Start Date: 01/06/23 Status: Ordered nystatin topical [id number] u/gm cream 1 application, Topically, 2 times a day, # 15 Gm, 0 Refills, Maintenance, 01/05/23 15:04:00 EDT, Cream, [facility], Partial fill upon patient request if the prescription is for a schedule II opioid drug., 1 application Topically 2 times a da... Start Date: 01/05/23 Status: Ordered nystatin topical [id number] u/gm cream 0 Refills, Maintenance, 01/06/23 18:05:00 [...] 11/16/22 10:34:00 EST, Route to Pharmacy Electronically, [facility], Partial fill upon patient request if [...] Maintenance,11/16/22 10:34:00 EST, Route to Pharmacy Electronically, [facility], Partial fill upon patient request if [...] 2 Oxygen Saturation [94-100 %] 100 % (02/13/23 11:00 PM) 100 % (02/13/23 8:53 PM) Pulse Rate [55-90 bpm] 90 bpm (02/13/23 11:00 PM) 114 bpm *H* (02/13/23 8:53 PM) Blood Pressure [90-138/55-84 mm Hg] 140/ 79mm Hg *H* (02/13/23 11:00 PM) 145/83mm Hg *H* (02/13/23 8:53 PM) Temperature [96.8-100.4 DegF] 98.0 DegF (02/13/23 11:00 PM) 97.9 DegF (02/13/23 8:53 PM) Mode of Delivery (Oxygen) Room air (02/13/23 11:00 PM) Room air (02/13/23 8:53 PM) Temperature Route Oral (02/13/23 11:00 PM) Oral (02/13/23 8:53 PM) Social History Social History Type Response [...] Rosana Kearney RN Position: [facility] SN RN Member Role: Primary Care [...] Professional Member Role: PCP Address: Address: [address] [place] [id number]- [place] Name: Jose Ramirez RN Position: [facility] RN Member Role: Primary Care Nurse Name: Brittany Butts RN Position: [facility] AMB Nurse Member Role: Primary Care Nurse Name: Pauline Mcadams RN Position: [facility] RN Member [...] Member Role: Primary Care Nurse Address: Address: [address] [place], [place] [id number] [facility] [place] [address]- Name: Parvez Kaab MD Position: [facility] Renal MD Member Role: Lifetime Consulting Physician Address: Address: [address] [place] [address] [facility] [place] [address]- [place] Name: Mirna Palu RN Position: [facility] OB RN Member Role: Primary Care Nurse Name: Lacey CARDOSO, Latonya Talavera Position: [facility] Onco RN Member Role: Primary Care Nurse Name: Viki Gonzalez RN Position: [facility] RN Member Role: Primary Care Nurse Name: Claudia Presley RN Position: [facility] RN Member Role: Primary Care Nurse Name: Iris Villa RN Position: [facility] Hospital Detector Car Operator Member Role: Primary Care Nurse Name: Raisa Wellington DO Position: [facility] Resident Member Role: ED Resident Address: Address: [address] [place] [address] Name: Mickie LE, Ros Ortiz Position: [facility] ED Medicine MD Member Role: Admitting Physician Address: Address: [address] [place] [address] Name: Justina Kimbrough Position: [facility] ED TA [facility] Care Team Related Persons Name: JO-ANN ROMANON SITE NURSEINDRA Address: [address] [place] [address] Name: CONDENSER TUBE TENDERGREGG Address: [address] [place] [address] Name: CARLOS PAZ Address: [address] [place] [address]
--- OUTSIDE RECORDS SUMMARY | 2023-07-16 14:56 | XMS_ITS | Continuity of Care Document ---
Author Name Unknown Organization [facility] ter Address [address] [place] [id number]- Care Team Providers Care Mechanical Maintenance Instructor Name Role Phone Maribel Marquez NP Primary Care Physician [phone] [place] [facility] [place]23 - 04/07/[address] [address]- Encounter Diagnosis Suicide attempt by drug ingestion(Final) - 04/07/23 Discharge Disposition: A-D/C Home Attending Physician: Juventino [...] 10:33:00 EST, Inhaler, Route to Pharmacy Electronically, NCPDP_[id number], [facility], 163, cm, 11/16/22 9:43:00 EST, Height, 97.3,... Start Date: 11/16/22 Status: Ordered atorvastatin 10 mg oral tablet 1 tablet = 10 mg, By Mouth, Daily at bedtime, # 30 tablet, 0 Refills, Maintenance, 11/16/22 10:33:00 EST, Tablet, [facility], Partial fill upon patient request if [...] 11/16/22 10:33:00 EST, Route to Pharmacy Electronically, [facility], Partial fill upon patientrequest if the [...] 0 Refills, Maintenance, 11/16/22 10:33:00 EST, Tablet, [facility], Partial fill upon patient request if [...] 11/16/22 10:34:00 EST, Route to Pharmacy Electronically, [facility], Partial fill upon patient request if the prescription is for a schedule II opioid d... Start Date: 11/16/22 Stop Date: 08/13/23 Status: Ordered FLUoxetine 20 mg oral capsule 80 mg, 4, capsule, By Mouth, Daily in AM, # 120 capsule, Refills 0, Tot. Refills 0, Maintenance, 11/16/22 10:34:00 EST, Route to Pharmacy Electronically, [facility], Partial fill upon patient request if [...] 11/16/22 10:34:00 EST, Route to Pharmacy Electronically, [facility], Partial fill upon patientrequest if the [...] 02/12/23 10:51:00 EDT, Route to Pharmacy Electronically, [facility], Partial fill upon patient requestif the [...] 60 tablet, 1 Refills, Maintenance,02/22/23 10:08:00 EDT, [facility], 146, cm, 02/05/23 20:22:00 EDT, Height, [...] 0 Refills, Maintenance, 11/16/22 10:34:00 EST, Tablet, [facility], Partial fill [...] 0 Refills, Maintenance, 11/16/22 10:34:00 EST, Tablet, [facility], Partial fill upon patient request if [...] 11/16/22 10:34:00 EST, Route to Pharmacy Electronically, [facility], Partial fill upon patient request if the prescription is for a schedule I... Start Date: 11/16/22 Status: Ordered montelukast 10 mg oral tablet Refills 0, Maintenance, 01/06/23 18:05:00 EDT, Partial fill upon patient request if the prescription is for a schedule II opioid drug. Start Date: 01/06/23 Status: Ordered nystatin topical [id number] u/gm cream 1 application, Topically, 2 times a day, # 15 Gm, 0 Refills, Maintenance, 01/05/23 15:04:00 EDT, Cream, [facility], Partial fill upon patient request if the prescription is for a schedule II opioid drug., 1 application Topically 2 times a da... Start Date: 01/05/23 Status: Ordered nystatin topical [id number] u/gm cream 0 Refills, Maintenance, 01/06/23 18:05:00 [...] 11/16/22 10:34:00 EST, Route to Pharmacy Electronically, [facility], Partial fill upon patient request if [...] Maintenance,11/16/22 10:34:00 EST, Route to Pharmacy Electronically, [facility], Partial fill upon patient request if [...] Exam Date Time Procedure Performing Provider Status 04/07/23 3:[address] Abd/Pelvis W/ IV Contrast Only Chel [address]; Auth (Verified) Notes: (CT Abd/Pelvis W/ IV Contrast Only) Reason For Exam: Epigastic pain s/p drank laundry detergent r/operf;Other: RESULT: CT Abd/Pelvis W/ IV Contrast Only CT Chest W/ Contrast, CT Abd/Pelvis W/ IV Contrast Only INDICATION: Hx of Present Illness: Per EMS report, pt is coming from a prison for SI TI. Pt drank about a quarter of a water bottle of a combination liquid of Febreeze and laundry detergent. +nausea, headaches, and dizziness. AOx4.; Reason: caustic ingestion r o perf TECHNIQUE: Helical CT scan of the chest, abdomen, and pelvis with IV contrast, formatted in 3 planes. 100 cc of Omnipaque 300 was administered intravenously. This study was performed without oral contrast. Weight-based protocol was performed using automatic exposure control. CTDIvol Body: 13.17 mGy, DLP Body: 962 mGy*cm. COMPARISON: None. FINDINGS: Pull Tab Dealer view findings, lines and tubes: None. Trachea and airways: Patent without evidence of tracheal or endobronchial lesion. Lungs and pleura: 2 mm calcified nodule within the right middle lobe, likely calcified granuloma. Clear lungs. Small right greater than left bilateral pleural effusions. No pneumothorax. Mediastinum and sharmaine: No mass or hematoma. No mediastinal or hilar lymphadenopathy. No esophageal abnormality. Partially imaged thyroid is unremarkable. Heart: Heart is normal in size. Trace pericardial fluid without mame effusion. No coronary arterial calcifications. Aorta: No aortic aneurysm. Pulmonary arteries: Normal caliber. No evidence of pulmonary embolism on this study performed without angiographic technique. Chest wall soft tissues: No acute abnormality. Diaphragm: Intact. Liver: Normal in attenuation and morphology. No suspicious lesion. Gallbladder: No CT evidence of gallbladder pathology. Bile ducts: No biliary ductal dilation. Spleen: Normal in size. Pancreas: No suspicious lesion or ductal dilatation. Adrenal glands: No nodule. Kidneys and ureters: No hydronephrosis, stone, or suspicious lesion. Small hypodensities that are too small to characterize are noted, requiring no dedicated follow up. Bladder: Possible mild anterior bladder wall thickening. Reproductive organs: Unremarkable. Stomach, small bowel, and large bowel: Normal caliber stomach and bowel loops. No surrounding inflammatory changes. Normal caliber fluid-filled distal small bowel. Appendix: Normal appendix. Peritoneum and retroperitoneum: No ascites or pneumoperitoneum. No omental or mesenteric lesions. Lymph nodes: No enlarged lymph nodes. Blood vessels: No vascular calcifications or aneurysm. No evidence of venous thrombosis. Abdominal and pelvic wall soft tissues: No acute abnormality. Bones: No acute abnormality. Old healed right anterior rib fractures. Mild multilevel degenerative changes. IMPRESSION: No acute abnormality of the chest, abdomen, or pelvis. No evidence of caustic bowel injury or perforation. Mild anterior bladder wall thickening, nonspecific, but could represent cystitis. Recommend correlation with urinalysis. I have personally reviewed the images and I agree with this report. WSN: [id number] Ordering Physician: Juventino Dover Dictated By: Sonia Cobb MD Dictated Date/Time: 04/07/23 4:36 pm Reviewed By: Marie Almeida MD Signed By: Marie Almeida MD Signed Date/Time: 04/07/23 4:41 pm Transcribed By: DAVIS Transcribed Date/Time: 04/07/23 4:25 pm * Exam Date Time Procedure Performing Provider Status 04/07/23 3:[address] Chest W/ Contrast Chel Ludwig; Auth (Verified) Notes: (CT Chest W/ Contrast) Reason For Exam: caustic ingestion r/o perf;Other: RESULT: CT Chest W/ Contrast CT Chest W/ Contrast, CT Abd/Pelvis W/ IV Contrast Only INDICATION: Hx of Present Illness: Per EMS report, pt is coming from a prison for SI TI. Pt drank about a quarter of a water bottle of a combination liquid of Febreeze and laundry detergent. +nausea, headaches, and dizziness. AOx4.; Reason: caustic ingestion r o perf TECHNIQUE: Helical CT scan of the chest, abdomen, and pelvis with IV contrast, formatted in 3 planes. 100 cc of Omnipaque 300 was administered intravenously. This study was performed without oral contrast. Weight-based protocol was performed using automatic exposure control. CTDIvol Body: 13.17 mGy, DLP Body: 962 mGy*cm. COMPARISON: None. FINDINGS: Pull Tab Dealer view findings, lines and tubes: None. Trachea and airways: Patent without evidence of tracheal or endobronchial lesion. Lungs and pleura: 2 mm calcified nodule within the right middle lobe, likely calcified granuloma. Clear lungs. Small right greater than left bilateral pleural effusions. No pneumothorax. Mediastinum and sharmaine: No mass or hematoma. No mediastinal or hilar lymphadenopathy. No esophageal abnormality. Partially imaged thyroid is unremarkable. Heart: Heart is normal in size. Trace pericardial fluid without mame effusion. No coronary arterial calcifications. Aorta: No aortic aneurysm. Pulmonary arteries: Normal caliber. No evidence of pulmonary embolism on this study performed without angiographic technique. Chest wall soft tissues: No acute abnormality. Diaphragm: Intact. Liver: Normal in attenuation and morphology. No suspicious lesion. Gallbladder: No CT evidence of gallbladder pathology. Bile ducts: No biliary ductal dilation. Spleen: Normal in size. Pancreas: No suspicious lesion or ductal dilatation. Adrenal glands: No nodule. Kidneys and ureters: No hydronephrosis, stone, or suspicious lesion. Small hypodensities that are too small to characterize are noted, requiring no dedicated follow up. Bladder: Possible mild anterior bladder wall thickening. Reproductive organs: Unremarkable. Stomach, small bowel, and large bowel: Normal caliber stomach and bowel loops. No surrounding inflammatory changes. Normal caliber fluid-filled distal small bowel. Appendix: Normal appendix. Peritoneum and retroperitoneum: No ascites or pneumoperitoneum. No omental or mesenteric lesions. Lymph nodes: No enlarged lymph nodes. Blood vessels: No vascular calcifications or aneurysm. No evidence of venous thrombosis. Abdominal and pelvic wall soft tissues: No acute abnormality. Bones: No acute abnormality. Old healed right anterior rib fractures. Mild multilevel degenerative changes. IMPRESSION: No acute abnormality of the chest, abdomen, or pelvis. No evidence of caustic bowel injury or perforation. Mild anterior bladder wall thickening, nonspecific, but could represent cystitis. Recommend correlation with urinalysis. I have personally reviewed the images and I agree with this report. WSN: [id number] Ordering Physician: Juventino Dover Dictated By: Sonia Cobb MD Dictated Date/Time: 04/07/23 4:36 pm Reviewed By: Marie Almeida MD Signed By: Marie Almeida MD Signed Date/Time: 04/07/23 4:41 pm Transcribed By: DAVIS Transcribed Date/Time: 04/07/23 4:25 pm Vital Signs Most recent to oldest [Reference Range]: 1 2 Height 164 cm (04/07/23 8:00 PM) 164 cm (04/07/23 2:49 PM) Weight 100 kg (04/07/23 8:00 PM) 100 kg (04/07/23 2:49 PM) Oxygen Saturation [94-100 %] 98 % (04/07/23 8:00 PM) 98 % (04/07/23 2:49 PM) Pulse Rate [55-90 bpm] 88 bpm (04/07/23 8:00 PM) 86 bpm (04/07/23 2:49 PM) Blood Pressure [90-138/55-84 mm Hg] 142/ 88mm Hg *H* (04/07/23 8:00 PM) 147/90mm Hg *H* (04/07/23 2:49 PM) Respiratory Rate [16-30 br/min] 16 br/mi n (04/07/23 8:00 PM) 18 br/min (04/07/23 2:49 PM) Temperature [96.8-100.4 DegF] 98.5 DegF (04/07/23 8:00 PM) 98.3 DegF (04/07/23 2:49 PM) Mode of Delivery (Oxygen) Room air (04/07/23 8:00 PM) Room air (04/07/23 2:49 PM) Temperature Route Oral (04/07/23 8:00 PM) Oral (04/07/23 2:49 PM) Dry Weight 100 kg (04/07/23 8:00 PM) 100 kg (04/07/23 2:49 PM) Weight Obtained Via Patient/family state d (04/07/23 2:49 PM) Dry Weight Obtained Via Patient/family s tated (04/07/23 2:49 PM) Social History Social History Type Response Smoking Status 10 or more cigarette s (1/2 pack or more)/day in last 30 days; Type: Cigarettes; Other: Reports smoking 1/2-1 packs/day, ending on level of stress; Started at age: 25; entered on: 11/18/22 Sex Note * Antonio Newton DO: PERFORM Event Display: Patient Education Leaflets Authored Date: Intentional Overdose, Psych Evaluation??(Adult) ?? [id number] Intentional Overdose, Psych Evaluation??(Adult) You have been evaluated and treated for taking a drug or chemical product with the intent to harm yourself. There is no sign of a toxic effect at this time. It's not likely that you will have any newsymptoms. To be safe, watch for new symptoms during the next 24 hours (see below). Symptoms will depend on the type of drug or chemical you took. An intentional overdose is likely a sign that you are depressed. Or you may be very angry with yourself or someone else. For this reason, you have received a psychiatric (psych) evaluation. It's very important for you to follow the instructions in this evaluation. Home care ??? If you are being sent home, have someone stay with you. The emotional impact of the overdose may not sink in for a while. ??? Have your friend remove all potential self-harm objects from your home such as drugs or weapons. They should put them in a place that's unknown to you. ??? Find out the suicide prevention hotline numbers, emergency numbers, and your provider numbers. Place them where they can be easily located. Give the phone numbers to your friends and family members. ??? If you were given liquid charcoal, your stools will have a black color for 1 to 2 days. A laxative is often given with charcoal. This speeds the removal of any toxins from the intestines. This may cause diarrhea for up to 24 hours. ??? If you were given charcoal but no laxative, you may become constipated. If that happens, you may take an [id number]-vim-tdigden laxative. ?? In an emergency Once you get home, keep a list of emergency numbers near. This includes trusted family members, friends, your healthcare provider, and the National Suicide Prevention Lifeline. Trained crisis counselors at the [facility] are available by calling or texting 117. An online chat option is also availableat www.suicidepreventionlifeline.org. You can also call [employer] at 800-273-talk (613.374.6942). [employer] is free and available 07/05. ?? Follow-up care Follow up with your healthcare provider, or as advised. ??? If you are being sent home, have someone stay with you until you follow up with your healthcareprovider, clinic, or therapist. Do this as soon as possible. ??? If you feel the urge to harm yourself again, call or text [phone]. You will be connected to trained crisis counselors at the [employer] Suicide Prevention Lifeline. ??? If you were given information about a healthcare provider, therapist, or clinic, follow up with them. ??? If you are being discharged for evaluation right away at a psychiatric facility on a voluntary basis, go directly there with a responsible adult. ??? If you have been placed on a ???72- hour psychiatric hold,?? a ride to a facility will be arranged for you. In the future, if you or someone you know takes something that may be harmful, call the [employer] [facility] at 537-287-9789. There is someone there 24 hours a day. If you call, you will be connected to the poison control center closest to you. ?? Call 919 Call 911 if any of these occur: ??? Intense desire to harm yourself and a way to carry to out ??? Trouble breathing or swallowing, wheezing ??? Severe confusion ??? Extreme drowsiness or trouble waking up ??? Fainting or loss of consciousness ??? Fast heart rate ??? Very slow heart rate ??? Very low or very high blood pressure ??? Vomiting blood or large amounts of blood in stool ??? Seizure ?? When to get medical advice Call your healthcare provider right away if any of these occur: ??? Shakiness ??? Fast breathing (more than 25 breaths per minute) or slow breathing (less than 8 breaths per minute) ??? Shortness of breath ??? Fever of 100.4??F (38??C) or higher, or as directed by your healthcare provider ??? Shaking chills ??? Vomiting or diarrhea for more than 24 hours ??? Belly pain ??? Dizziness or weakness ??? Thoughts of harming yourself again (call or text 353) ?? For more help ??? National Suicide Prevention Lifeline at www.suicidepreventionlifeline.org or 219-227-WBJT (680-290-0926) ??? Substance Abuse and Mental Health Services Administration Helpline at www .[facility].gov/find-help/national-helpline or 384-088-QRZK (681-499-6417) ??? National [place] on Mental Illness at www.tristian.org or 140-456-9523 or text TRISTIAN to 670585 ??? Mental Health [place] at www.ndha.org or 483-383-0154 ?? Last Reviewed Date: 2022 ?? The [employer]. All rights reserved. This information is not intended as a substitute for professional medical care. Always follow your healthcare professional's instructions. ?? Patient Care team information Care Team Personnel Name: Rudi Ruiz RN Position: [facility] ED RN W/OE and Tasks Member Role: Primary Care Nurse Name: Alicja Riggs RN Position: [facility] RN Member Role: Primary Care Nurse Name: Ros Fu RN Position: [facility] RN Member Role: Primary Care Nurse Name: Hilda Mccabe RN Position: [facility] RN Member Role: Primary Care Nurse Name: Rosana Kearney RN Position: [facility] SN RN Member Role: Primary Care Nurse Name: Wil Flood RN Position: [facility] RN Member Role: Primary Care Nurse Name: Gagandeep Sheldon RN Position: [facility] RN Member Role: Primary Care Nurse Name: Chip Morton Position: [facility] Outreach Member Role: Lifetime Consulting Physician Name: Alba Daily RN Position: [facility] RN Member Role: Primary Care Nurse Name: Maribel Marquez NP Position: [facility] PCO Associate Professional Member Role: PCP Address: Address: [address] [place] [id number]- [place] Name: Jose Ramirez RN Position: [facility] RN Member Role: Primary Care Nurse Name: Brittany Butts RN Position: [facility] AMB Nurse Member Role: Primary Care Nurse Name: Pauline Mcadams RN Position: [facility] RN Member Role: Primary Care Nurse Name: Mary Sánchez RN Position: [facility] RN Member Role: Primary Care Nurse Name: Shama Rosado RN Position: [facility] RN Member Role: Primary Care Nurse Name: Jackie Snyder RN Position: [facility] RN Member Role: Primary Care Nurse Name: Jay Burks NP Position: Reference Physician Member Role: Primary Care Nurse Address: Address: [address] [place] [address] [facility] [place] [address]- [place] Name: Parvez Kaba MD Position: [facility] Renal MD Member Role: Lifetime Consulting Physician Address: Address: [address] [place] [address] [facility] [place] [address]- Name: Mirna Paul RN Position: [facility] OB RN Member Role: Primary Care Nurse Name: Latonya Rahman RN Position: [facility] Onco RN Member Role: Primary Care Nurse Name: Viki Gonzalez RN Position: [facility] RN Member Role: Primary Care Nurse Name: Claudia Presley RN Position: [facility] RN Member Role: Primary Care Nurse Name: Iris Villa RN Position: [facility] Hospital Iron Carrier Member Role: Primary Care Nurse Name: Rudi Ruiz RN Position: [facility] ED RN W/OE and Tasks Member Role: Patient Care Provider Name: Antonio Newton DO Position: [facility] Resident Member Role: ED Resident Address: Address: [address] [place] [address]- Name: Juventino Dover DO Position: [facility] Resident Member Role: Admitting Physician Address: Address: [address] [place] [address] Dept [place] [address]- Care Team Related Persons Name: BOB- MOUNTER [employer] INSTRUMENTSINDRA Address: [address] [place] [address] Name: RADIO MECHANIC APPRENTICEGREGG Address: home [address] [place] [address] Name: CARLOS PAZ Address: home [address] [place] [address]
--- OUTSIDE RECORDS SUMMARY | 2023-07-16 14:56 | XMS_ITS | Continuity of Care Document ---
Author Name Unknown Organization [facility] Address [address] [place] [address]- Care Team Providers Care Irrigating Pump Operator Name Role Phone Maribel Marquez NP Primary Care Physician [phone] [facility] Date(s): 01/02/23 - 02/01/23 [facility] Adult [address] [place] [address]- Allergies, Adverse Reactions, Alerts Substance Reaction Severity [...] 10:33:00 EST, Inhaler, Route to Pharmacy Electronically, NCPDP_[id number], [facility], 163, cm, 11/16/22 9:43:00 EST, Height, 97.3,... Start Date: 11/16/22 Status: Ordered atorvastatin 10 mg oral tablet 1 tablet = 10 mg, By Mouth, Daily at bedtime, # 30 tablet, 0 Refills, Maintenance, 11/16/22 10:33:00 EST, Tablet, [facility], Partial fill upon patient request if [...] 0 Refills, Maintenance, 11/16/22 10:33:00 EST, Tablet, [facility], Partial [...] 11/16/22 10:34:00 EST, Route to Pharmacy Electronically, [facility], Partial fill upon patient request if [...] 0 Refills, Maintenance, 11/16/22 10:34:00 EST, Tablet, [facility], Partial fill upon patient request if [...] 0 Refills, Maintenance, 11/16/22 10:34:00 EST, Tablet, [facility], Partial fill upon patient request if [...] 11/16/22 10:34:00 EST, Route to Pharmacy Electronically, [facility], Partial fill upon patient request if the prescription is for a schedule I... Start Date: 11/16/22 Status: Ordered montelukast 10 mg oral tablet Refills 0, Maintenance, 01/06/23 18:05:00 EDT, Partial fill upon patient request if the prescription is for a schedule II opioid drug. Start Date: 01/06/23 Status: Ordered nystatin topical [id number] u/gm cream 1 application, Topically, 2 times a day, # 15 Gm, 0 Refills, Maintenance, 01/05/23 15:04:00 EDT, Cream, [facility], Partial fill upon patient request if the prescription is for a schedule II opioid drug., 1 application Topically 2 times a da... Start Date: 01/05/23 Status: Ordered nystatin topical [id number] u/gm cream 0 Refills, Maintenance, 01/06/23 18:05:00 [...] 11/16/22 10:34:00 EST, Route to Pharmacy Electronically, [facility], Partial fill upon patient request if [...] Maintenance,11/16/22 10:34:00 EST, Route to Pharmacy Electronically, [facility], Partial fill upon patient request if [...] Team Personnel Name: Rudi Ruiz RN Position: [facility] ED RN W/OE and Tasks Member Role: Primary Care Nurse Name: Alicja Riggs RN Position: [facility] RN Member Role: Primary Care Nurse Name: Ros Fu RN Position: [facility] RN Member Role: Primary Care Nurse Name: Hilda Mccabe RN Position: [facility] RN Member Role: Primary Care Nurse Name: Rosana Kearney RN Position: [facility] SN RN Member Role: Primary Care Nurse Name: Wil Flood RN Position: [facility] RN Member Role: Primary Care Nurse Name: Gagandeep Sheldon RN Position: [facility] RN Member Role: Primary Care Nurse Name: Chip Morton Position: [facility] Outreach Member Role: Lifetime Consulting Physician Name: Alba Daily RN Position: [facility] RN Member Role: Primary Care Nurse Name: Maribel Marquez NP Position: [facility] PCO Associate Professional Member Role: PCP Address: Address: [address] [place] [address] Name: Jose Ramirez RN Position: [facility] RN Member Role: Primary Care Nurse Name: Brittany Butts RN Position: [facility] AMB Nurse Member Role: Primary Care Nurse Name: Pauline Mcadams RN Position: [facility] RN Member Role: Primary Care Nurse Name: Mary Sánchez RN Position: [facility] RN Member Role: Primary Care Nurse Name: Shama Rosado RN Position: [facility] RN Member Role: Primary Care Nurse Name: Jackie Snyder RN Position: [facility] RN Member Role: Primary Care Nurse Name: Jay Burks NP Position: Reference Physician Member Role: Primary Care Nurse Address: Address: [address] [facility] [address] Clinical & [place] [address]- Name: Parvez Kaba MD Position: [facility] Renal MD Member Role: Lifetime Consulting Physician Address: Address: [address] [place] [address] [facility] [place] [address]- Name: Yoana Ledezma RN Position: [facility] RN Member Role: Primary Care Nurse Name: Mirna Paul RN Position: [facility] OB RN Member Role: Primary Care Nurse Name: Latonya aRhman RN Position: [facility] Onco RN Member Role: Primary Care Nurse Name: Viki Gonzalez RN Position: [facility] RN Member Role: Primary Care Nurse Name: Claudia Presley RN Position: [facility] RN Member Role: Primary Care Nurse Name: Iris Villa RN Position: [facility] Hospital Supervisor [employer] Member Role: Primary Care Nurse Care Team Related Persons Name: JO-ANN ROMANINSTALLER METAL FLOORINGINDRA Address: [address] [place] [address] Name: MARINE ENGINEERGREGG Address: [address] [place] [address] Name: CARLOS PAZ Address: home [address] [place] [address]
--- OUTSIDE RECORDS SUMMARY | 2023-07-16 14:56 | XMS_ITS | Continuity of Care Document ---
Author Name Unknown Organization [facility] Address [address] [place] [address]- Care Team Providers Care Ribbon Cutter Name Role Phone Maribel Marquez NP Primary Care Physician En[place] [facility] Date(s): 04/07/22 - 04/08/[address] [address]- Encounter Diagnosis Suicidal ideation(Final) - 04/07/22 Auditory hallucinations(Final) - 04/07/22 Intentional self-harm by sharp object(Final) - 04/07/22 COVID-19(Final) - 04/08/22 Discharge Disposition: A-D/C Home Attending Physician: Eddie Farfan MD Admitting Physician: Eddie Farfan MD Referring Physician: Not on Staff, Referring [...] tablet, 0 Refills, Maintenance, 01/04/22 11:12:00 EDT, [facility], Partial fill upon patient request if [...] a day, # 12 Gm, 2 Refills, [facility], 165, cm, 12/19/21 10:41:00 EST, Height, [...] A DAY, # 60 tablet, 5 Refills, [facility],165, cm, 01/19/22 13:55:00 EDT, Height, 103, [...] 01/04/22 11:12:00 EDT, Route to Pharmacy Electronically, [facility], 165, cm, 12/19/21 10:41:00 EST, Height, 103, kg, 11/26/21 8:59:00 EST, . Start Date: 01/04/22 Status: Ordered Nicotine 2 mg gum 1 each = 2 mg, Chew, Every 2 hours, PRN as needed for smoking cessation, for 4 week(s), # 336 each,1 Refills, Acute 05/19/22 14:46:00 EDT, 03/24/22 14:46:00 EDT, Gum, [facility], Partial fill upon patient request if [...] 01/19/22 10:48:00 EDT, Route to Pharmacy Electronically, [facility], Partial fill upon patient request if [...] Refills, Maintenance, 05/09/21 8:45:00 EDT, SR Tablet, [facility], 165, cm, 04/11/21 7:42:00 EDT, Height, 102.6, kg, 02/12/21 12:14:00 EDT, Dry Weight Start Date: 05/09/21 Status: Ordered Verapamil Tablet 240 mg, SR Tablet, By Mouth, 04/07/22 21:30:00 EDT Start Date: 04/07/22 Stop Date: 04/07/22 Status: Completed Problem List Condition Effective Dates [...] 3 Oxygen Saturation [94-100 %] 98 % (04/08/22 8:44 AM) 98 % (04/08/22 2:57 AM) 98 % (04/07/22 7:40 PM) Pulse Rate [55-90 bpm] 72 bpm (04/08/22 8:44 AM) 72 bpm (04/08/22 2:57 AM) 88 bpm (04/07/22 9:59 PM) Blood Pressure [90-138/55-84 mm Hg] 137/90mm Hg (04/08/22 8:44 AM) 118/74mm Hg (04/08/22 2:57 AM) 108/51mm Hg (04/07/22 9:59 PM) Respiratory Rate [16-30 br/min] 16 br/min (04/08/22 8:44 AM) 16 br/min (04/08/22 2:57 AM) 19 br/min (04/07/22 7:40 PM) Temperature [96.8-100.4 DegF] 97.7 DegF (04/08/22 8:44 AM) 98.4 DegF (04/07/22 7:40 PM) Mode of Delivery (Oxygen) Room air (04/08/22 8:44 AM) Room air (04/07/22 7:40 PM) Blood pressure sites Arm, left (04/08/22 8:44 AM) Temperature Route Oral (04/08/22 8:44 AM) Oral (04/07/22 7:40 PM) Social History Social History Type Response Smoking Status 10 or more cigarette s (1/2 pack or more)/day in last 30 days; Type: Cigarettes; Other: Reports smoking 1/2-1 packs/day, ending on level of stress; Started at age: 25; entered on: 12/31/20 Sex
--- OUTSIDE RECORDS SUMMARY | 2023-07-16 14:56 | XMS_ITS | Continuity of Care Document ---
Author Name Unknown Organization [facility] Address [address] [place] [id number]- Care Team Providers Care Tungsten Tender Name Role Phone Maribel Marquez NP Primary Care Physician Encounter [facility] Date(s[place] 09/10/22 - 09/10/[address] [address]- Encounter Diagnosis Agitated(Final) - 09/10/22 Auditory hallucinations(Final) - 09/10/22 Discharge Disposition: A-D/C Home Attending Physician: Han [...] tablet, 1 Refills, Maintenance, 07/24/22 15:17:00 EDT, [facility], 165.2, cm, 07/19/22 10:30:00 EDT, [...] a day, # 12 Gm, 1 Refills, [facility], 162, cm, 03/20/22 19:50:00 EDT, [...] 07/21/22 14:07:00 EDT, Route to Pharmacy Electronically, [facility], Partial fill upon patient requestif the prescription is for a schedule II opioid kaela... Start Date: 07/21/22 Stop Date: 04/17/23 Status: Ordered metFORMIN 500 mg oral tablet See Instructions, TAKE 1 EACH BY MOUTH 2 TIMES A DAY, # 60 tablet, 5 Refills, 08/07/22 10:55:00 EDT, [facility], 165.2, cm, 07/19/22 10:30:00 EDT, [...] 01/04/22 11:12:00 EDT, Route to Pharmacy Electronically, [facility], 165, cm, 12/19/21 10:41:00 EST, [...] 01/19/22 10:48:00 EDT, Route to Pharmacy Electronically, [facility], Partial fill upon patient request if the prescription is for a schedule... Start Date: 01/19/22 Status: Ordered prazosin 1 mg oral capsule 4 mg, Capsule, By Mouth, 09/10/22 21:00:00 EST Start Date: 09/10/22 Stop Date: 09/10/22 Status: Completed ProAir HFA 90 mcg/inh inhalation aerosol 2 puffs, Inhalation, 4 times a day, PRN as needed for wheezing, # 6.7 Gm, 1 Refills, Maintenance, 06/23/22 16:17:00 EDT, Aerosol, [facility], Partial fill upon patient request [...] 07/28/22 7:45:00 EDT, Route to Pharmacy Electronically, [facility], 165.2, cm, 07/19/22 10:30:00 EDT, [...] Refills, Maintenance, 05/09/21 8:45:00 EDT, SR Tablet, [facility], 165, cm, 04/11/21 7:42:00 EDT, [...] 3 Oxygen Saturation [94-100 %] 100 % (09/10/22 8:11 PM) 98 % (09/10/22 6:26 PM) 99 % (09/10/22 3:32 PM) Pulse Rate [55-90 bpm] 89 bpm (09/10/22 8:11 PM) 100 bpm *H* (09/10/22 6:26 PM) 111 bpm *H* (09/10/22 3:32 PM) Blood Pressure [90-138/55-84 mm Hg] 133/93mm Hg (09/10/22 8:11 PM) 150/75mm Hg *H* (09/10/22 7:48 PM) 127/82mm Hg (09/10/22 6:26 PM) Respiratory Rate [16-30 br/min] 18 br/min (09/10/22 8:11 PM) 20 br/min (09/10/22 6:26 PM) 20 br/min (09/10/22 3:32 PM) Temperature [96.8-100.4 DegF] 97.8 DegF (09/10/22 8:11 PM) 98.7 DegF (09/10/22 6:26 PM) 98.4 DegF (09/10/22 3:32 PM) Mode of Delivery (Oxygen) Room air (09/10/22 8:11 PM) Room air (09/10/22 6:26 PM) Room air (09/10/22 3:32 PM) Blood pressure sites Arm, right (09/10/22 8:11 PM) Arm, right (09/10/22 6:26 PM) Arm, left (09/10/22 3:32 PM) Temperature Route Oral (09/10/22 8:11 PM) Oral (09/10/22 6:26 PM) Oral (09/10/22 3:32 PM) Social History Social History Type Response Smoking Status 10 or more cigarette s (1/2 pack or more)/day in last 30 days; Other: 1PPD; entered on: 07/19/22 Sex Note * Han Bolanos MD: PERFORM Event Display: Patient Education Leaflets Authored Date: [id number] Meditation ?? 624 ?? What is Meditation?Meditation is an??intentional practice that??focuses on opening??one???s??heart,expanding awareness and??calming??the??mind. ?Meditation?? has?? been?? used by many individuals for thousands of years to find??inner??peace??and??come to??terms with difficulties they experience in life. ?? Why?? Practice?? Meditation? ?? Meditation?? has?? been?? studied for decades and is proven to have many positive effects including: ??? Decreasing anxiety ??? Decreasing stress ??? Improving?? self-awareness ??? Increasing?? imagination and creativity ?? Some?? studies have even??suggested??that??meditation??can??benefit??people who suffer??from physical conditions??including asthma,??headaches, high blood??pressure, sleep problems and chronic pain. ?? Types of Meditation ?? There are many types of meditation??that emphasize different ways to calm the mind. We encourageyou to try a few different types to find the??method??that??works best for you. ? Mindfulness?? Meditation - Mindfulness Meditation??focuses??on??slowing down and being in the present??moment while allowing??thoughts from a busy mind to pass one by without??judgement or stress. ?? Guided Meditation- This??technique??typically uses a teacher(either??in??person or through a website/[place]) to guide??the??person??through a scene or image to calm??the mind. Guided??meditation may use??the five senses to help the??person??experience??the??scene. ?? Mantra Meditation- Mantra??Meditation??emphasizes on??using a specific word or sound to focus??the mind and help prevent??distracting??thoughts. ?? Movement Meditation - Movement?? Meditation?? focuses?? on?? using?? movement?? to allow one to find??inner??peace.??Yoga is a very common??example of movement??meditation,??but??other??methods??include??Qigong,gardening, or even going on a quiet??walk??or hike. ?? These are only a few??of the different types of meditation. Use the resources below??to discover others. ?? Additional?? Resources ?? Websites: ??? Insight Timer: https://insighttimerWiDaPeople/ ??? Meditation [place]: https://www.meditationoasis.Forward Talent/??? [facility] Mindful Awareness??Research Center (available??in??10+ languages):??http://shruthi.[facility]/body.cfm?id=22 Phone?? Apps: ??? Head space ??? Calm ??? Omvana ??? Buddhify ??? 7 Minute Chi ??? Insight Timer ??? Unplug ?? There are also many??resources??available in places like Metabarube??and??Spotify. ? Last Reviewed Date: 2021 This?? information is not intended as a substitute for professional medical care. Always follow??your??health home care manager???s instruction. ?? * Han Bolanos MD: PERFORM Event Display: Patient Education Leaflets Authored Date: [id number] Journaling for Mental Health ?? 4552 Journaling for Mental Health When you were a teenager, you might have kept a diary hidden under your mattress. It was a place toconfess your struggles and fears without judgment or punishment. It likely felt good to get all of those thoughts and feelings out of your head and down on paper. The world seemed clearer. You may have stopped using a diary once you reached adulthood. But the concept and its benefits still apply. Now it???s called journaling. It's simply writing down your thoughts and feelings to understand them more clearly. And if you struggle with stress, depression, or anxiety, keeping a journal can be a great idea. It can help you gain control of your emotions and improve your mental health. Journaling benefits? One of the ways to deal with any overwhelming emotion is to find a healthy way to express yourself.This makes a journal a helpful tool in managing your mental health. Journaling can help you: ??? Manage anxiety ??? Reduce stress ??? [place] with depression Journaling helps control your symptoms and improve your mood by: ??? Helping you prioritize problems, fears, and concerns ??? Tracking any symptoms day-to-day so that you can recognize triggers and learn ways to better control them ??? Providing an opportunity forpositive self-talk and identifying negative thoughts and behaviors When you have a problem and you're stressed, keeping a journal can help you identify what???s causing that stress or anxiety. Once you???ve identified your stressors, you can work on a plan to resolve the problems and reduce your stress. Keep in mind that journaling is just one aspect of a healthy lifestyle for better managing stress, anxiety, and mental health conditions. To get the most benefits, be sure you also: ??? Relax and meditate each day. ??? Eat a healthy, balanced diet. ??? Exercise regularly???get in some activity every day. ??? Treat yourself to plenty of sleep each night. ??? Stay away from alcohol and drugs. Use your journal to make sure you follow these guidelines daily. ?? How to journal Try these tips to help you get started with journaling: ??? Try to write every day. Set aside a few minutes every day to write. This will help you to writein your journal regularly. ??? Make it easy. Keep a pen and paper handy at all times. Then when youwant to write down your thoughts, you can. You can also keep a journal on your smartphone. ??? Write or draw whatever feels right. Your journal doesn't need to follow any certain structure. It's yourown private place to discuss and create whatever you want to express your feelings. Let the words and ideas flow freely. Don't worry about spelling mistakes or what other people might think. ??? Use your journal as you see fit. You don't have to share your journal with anyone. If you do want to share some of your thoughts with trusted friends and loved ones, you could show them parts of your journal. Keeping a journal helps you create order when your world feels like it???s in chaos. You get to know yourself by revealing your most private fears, thoughts, and feelings. Look at your writing time as personal relaxation time. It's a time when you can de-stress and wind down. Write in a place that's relaxing and soothing, maybe with a cup of tea. Look forward to your journaling time. And know that you're doing something good for your mind and body. ?? Last Reviewed Date: 2020 ?? [employer]. All rights reserved. This information is not intended as a substitute for professional medical care. Always follow your healthcare professional's instructions. ?? * Han Bolanos MD: PERFORM Event Display: Patient Education Leaflets Authored Date: A Sample Walking Program ?? 84526 A Sample Walking Program Experts recommend walking briskly??on most days. Aim for a target of 30 minutes on most days, or 150 or more minutes a week. Walking programs can help you reach this goal by slowly increasing the frequency and the amount of time you walk.??Try this walking program: First week ??? Walk 3 times a week. ??? Walk for 5 minutes each time. ?? Second week ??? Walk 3 times a week. ??? Walk for 10 minutes each time. ?? Third week ??? Walk 3 times a week. ??? Walk for 13 minutes each time. ?? Fourth week ??? Walk 3 times a week. ??? Walk for 15 minutes each time. ?? Fifth week ??? Walk 4 times a week. ??? Walk for 15 minutes each time. ?? Sixth week and beyond Gradually increase the number of times you walk each week and the number of minutes you walk each time until you reach 30 minutes on 5 to 7 days of the week. ?? Tips for getting the most from your walking program ??? Walk briskly. If you can sing, speed up. Ifyou can???t talk easily, slow down. ??? Choose good walking shoes with padded soles and good arch support. ??? Don???t use hand or ankle weights. They can cause injuries. ??? Walk indoors if the weather is bad. Use a treadmill or walk inside a shopping mall. ?? Before you start walking, check with your healthcare provider if you're new to exercise, older thanage 40, overweight, or a smoker. Also check with your provider if you have heart disease, high blood pressure, diabetes, arthritis, asthma, or any other health problems. Your provider can help you get started and stay safe. ?? Last Reviewed Date: 2021 ?? 3539-0418 MPV. All rights reserved. This information is not intended as a substitute for professional medical care. Always follow your healthcare professional's instructions. ?? Patient Care team information Care Team Personnel Name: Rudi Ruiz RN Position: [facility] ED RN W/OE and Tasks Member Role: Primary Care Nurse Name: Alicja Riggs RN Position: [facility] RN Member Role: Primary Care Nurse Name: Ros Fu RN Position: [facility] RN Member Role: Primary Care Nurse Name: Hilda Mccabe RN Position: [facility] RN Member Role: Primary Care Nurse Name: Rosana Kearney RN Position: [facility] AMB Nurse Member Role: Primary Care Nurse Name: Wil Flood RN Position: [facility] RN Member Role: Primary Care Nurse Name: Gagandeep Sheldon RN Position: [facility] RN Member Role: Primary Care Nurse Name: Chip Morton Position: [facility] Outreach Member Role: Lifetime Consulting Physician Name: Alba Daily RN Position: [facility] RN Member Role: Primary Care Nurse Name: Maribel Marquez NP Position: [facility] PCO Associate Professional Member Role: PCP Address: Address: [address] [place] [address] Name: Jose Ramirez RN Position: [facility] RN Member Role: Primary Care Nurse Name: Brittany Butts RN Position: [facility] AMB Nurse Member Role: Primary Care Nurse Name: Mary Sánchez RN Position: [facility] RN Member Role: Primary Care Nurse Name: Shama Rosado RN Position: [facility] RN Member Role: Primary Care Nurse Name: Jackie Snyder RN Position: [facility] RN Member Role: Primary Care Nurse Name: Jay Burks NP Position: Reference Physician Member Role: Primary Care Nurse Address: Address: [address] [facility] [address] Clinical & [place] [address]- [place] Name: Parvez Kaba MD Position: [facility] Renal MD Member Role: Lifetime Consulting Physician Address: Address: [address] [facility] [place] [address]- [place] Name: Yoana Ledezma RN Position: [facility] RN Member Role: Primary Care Nurse Name: Mirna Paul RN Position: [facility] OB RN Member Role: Primary Care Nurse Name: Latonya Rahman RN Position: [facility] Onco RN Member Role: Primary Care Nurse Name: Claudia Presley RN Position: [facility] RN Member Role: Primary Care Nurse Name: Iris Villa RN Position: [facility] Hospital Subway Car Repairer Member Role: Primary Care Nurse [facility] Attending Position: [facility] ED Attendings Patient Name: Han Bolanos MD Position: [facility] ED Medicine MD Member Role: Admitting Physician Address: Address: [address] [place] [address]- [place] Name: Cecille Blanco RN Position: [facility] ED RN W/OE and Tasks Member Role: Patient Care Provider Care Team Related Persons Name: JO-ANN ROMANVEHICLE FUEL SYSTEMS CONVERTERINDRA Address: [address] [place] [address] Name: BABBITTERGREGG Address: [address] [place] [address] Name: CARLOS PAZ Address: home [address] [place] [address]
--- OUTSIDE RECORDS SUMMARY | 2023-07-16 14:56 | XMS_ITS | Continuity of Care Document ---
Author Name Unknown Organization [facility] Adult Address [address] [place] [address]- Care Team Providers Care Floor Care Specialist Name Role Phone Maribel Marquez NP Primary Care Physician [phone] Encounter [facility] [place] Date(s): 03/04/21 - 04/03/21 [facility] Adult [address] [place] [address]- Allergies, Adverse Reactions, Alerts Substance Reaction Severity [...] 07/22/20 18:41:00 EDT, Route to Pharmacy Electronically, [facility], 163.5, cm, 07/22/20 18:29:00 EDT, Height, [...] 0 Refills, Maintenance, 12/23/20 15:38:00 EST, Aerosol, [facility], 162, cm, 12/23/20 10:43:00 EST, Height, 122.1, kg, 12/21/20 16:25:00 EST, Dry Weight Start Date: 12/23/20 Status: Ordered Haldol Decanoate decanoate 100 mg/ml injectable solution = 100 mg, Intramuscular, Every 28 days, last dose given on 09/17/2020. Next due 10/15/20., # 1 each, 0Refills, Soft Stop, 07/22/20 18:42:00 EDT, Solution, [facility], 163.5, cm, 07/22/20 18:29:00 EDT, Height, 102.5, kg, 07/18/20 21:04:00 EDT,... Start Date: 07/22/20 Status: Ordered lisinopril 5 mg oral tablet 5 mg, 1, tablet, By Mouth, Daily, # 30 tablet, Refills 0, Tot. Refills 0, Maintenance, 02/09/20 10:10:00 EDT, Route to Pharmacy Electronically, [facility], 165, cm, 02/08/20 19:47:00 EDT, Height, [...] 0 Refills, Maintenance, 12/23/20 16:38:00 EST, Tablet, [facility], Partial fill upon patient request if the prescription is for a schedule II opioid drug., 162, cm, 12/23/20 15:59:00 EST... Start Date: 12/23/20 Stop Date: 01/22/21 Status: Ordered montelukast 10 mg oral tablet 10 mg, 1, tablet, By Mouth, Daily, # 30 tablet, Refills 0, Tot. Refills 0, Maintenance, 02/09/20 10:11:00 EDT, Route to Pharmacy Electronically, [facility], 165, cm, 02/08/20 19:47:00 EDT, Height, 104.5, kg, 02/07/20 8:15:00 EDT, Dry Weight Start Date: 02/09/20 Status: Ordered norethindrone 0.35 mg oral tablet 1 tablet = 0.35 mg, By Mouth, Daily, # 30 tablet, 0 Refills, Maintenance, 02/09/20 10:07:00 EDT, Tablet, [facility], 165, cm, 02/08/20 19:47:00 EDT, Height, [...] 0 Refills, Maintenance, 02/09/20 10:05:00 EDT, Inhaler, [facility], 165, cm, 02/08/20 19:47:00 EDT, Height, 104.5, kg, 02/07/20 8:15:00 EDT, Dry Weight Start Date: 02/09/20 Stop Date: 03/10/20 Status: Ordered verapamil 240 mg/12 hours oral tablet, extended release 1 tablet = 240 mg, By Mouth, Daily at bedtime, # 30 tablet, 0 Refills, Maintenance, 02/09/20 10:14:00 EDT, SR Tablet, [facility], 165, cm, 02/08/20 19:47:00 EDT, Height, [...]
--- OUTSIDE RECORDS SUMMARY | 2023-07-16 14:56 | XMS_ITS | Continuity of Care Document ---
Author Name Unknown Organization [facility] Address [address] [place] [address]- Care Team Providers Care Client Services Coordinator Name Role Phone Maribel Marquez NP Primary Care Physician [phone] [place] [facility] [place] - 07/06/[address] [address]- Encounter Diagnosis Borderline personality disorder(Final) - 07/05/22 Bipolar disorder(Final) - 07/05/22 Chronic post-traumatic stress disorder (PTSD)(Final) - 07/05/22 Discharge Disposition: A-D/C Home Attending Physician: Robby [...] tablet, 0 Refills, Maintenance, 01/04/22 11:12:00 EDT, [facility], Partial fill upon patient request if [...] a day, # 12 Gm, 1 Refills, [facility], 162, cm, 03/20/22 19:50:00 EDT, Height, [...] A DAY, # 60 tablet, 5 Refills, [facility],165, cm, 01/19/22 13:55:00 EDT, Height, 103, [...] 01/04/22 11:12:00 EDT, Route to Pharmacy Electronically, [facility], 165, cm, 12/19/21 10:41:00 EST, Height, [...] 01/19/22 10:48:00 EDT, Route to Pharmacy Electronically, [facility], Partial fill upon patient request if the prescription is for a schedule... Start Date: 01/19/22 Status: Ordered ProAir HFA 90 mcg/inh inhalation aerosol 2 puffs, Inhalation, 4 times a day, PRN as needed for wheezing, # 6.7 Gm, 1 Refills, Maintenance, 06/23/22 16:17:00 EDT, Aerosol, [facility], Partial fill upon patient request if [...] 06/23/22 16:16:00 EDT, Route to Pharmacy Electronically, [facility], Partial fill upon los... Start Date: [...] Refills, Maintenance, 05/09/21 8:45:00 EDT, SR Tablet, [facility], 165, cm, 04/11/21 7:42:00 EDT, Height, [...] oldest [Reference Range]: 1 2 3 Height 160 cm (07/05/22 8:10 PM) Weight 115 kg (07/05/22 8:10 PM) Oxygen Saturation [94-100 %] 94 % (07/06/22 8:51 AM) 97 % (07/06/22 1:01 AM) 99 % (07/05/22 8:10 PM) Pulse Rate [55-90 bpm] 78 bpm (07/06/22 8:51 AM) 73 bpm (07/06/22 1:01 AM) 88 bpm (07/05/22 8:10 PM) Blood Pressure [90-138/55-84 mm Hg] 140/92mm Hg *H* (07/06/22 8:51 AM) 144/85mm Hg *H* (07/06/22 1:01 AM) 103/58mm Hg (07/05/22 8:10 PM) Respiratory Rate [16-30 br/min] 16 br/min (07/06/22 8:51 AM) 16 br/min (07/06/22 1:01 AM) 16 br/min (07/05/22 8:10 PM) Temperature [96.8-100.4 DegF] 98.5 DegF (07/06/22 1:01 AM) 98.2 DegF (07/05/22 8:10 PM) Mode of Delivery (Oxygen) Room air (07/06/22 8:51 AM) Room air (07/06/22 1:01 AM) Room air (07/05/22 8:10 PM) Temperature Route Oral (07/06/22 1:01 AM) Oral (07/05/22 8:10 PM) Dry Weight 115 kg (07/05/22 8:10 PM) Weight Obtained Via Standing scale (07/05/22 8:10 PM) Social History Social History Type Response Smoking Status 10 or more cigarette s (1/2 pack or more)/day in last 30 days; Type: Cigarettes; Other: Reports smoking 1/2-1 packs/day, ending on level of stress; Started at age: 25; entered on: 12/31/20 Sex Care Team Personnel Name: Maribel Marquez NP Address: [address] [place] [id number]
--- OUTSIDE RECORDS SUMMARY | 2023-07-16 14:56 | XMS_ITS | Continuity of Care Document ---
Author Name Unknown Organization [facility] ter Address [address] [place] [address]- Care Team Providers Care Dental Laboratory Technology Teacher Name Role Phone Michelle Norris MD Primary Care Physician [place] [facility] [place] 10/06/[place] - 10/07/[address] [address]- [facility] Encounter Diagnosis Depression(Final) - 10/07/19 Discharge Disposition: A-D/C Home Attending Physician: Linnea Akhtar MD Admitting Physician: Linnea Akhtar MD Referring Physician: Not on Staff, Referring [...] 9:36:46 EDT, Route to Pharmacy Electronically, NCPDP_ID- [id number], [facility] Start Date: 08/07/19 Status: Ordered montelukast 10 mg oral tablet 10 mg, By Mouth, Daily, for allergies, # 15 tablet, Refills 1, Tot. Refills 1, Maintenance, 08/07/19 9:37:10 EDT, Route to Pharmacy Electronically, NCPDP_ID- [id number], [facility] Start Date: 08/07/19 Status: Ordered Nicoderm [...] 08/07/19 9:37:48 EDT, Route to Pharmacy Electronically, NCPDP_[id number], [facility] Start Date: 08/07/19 Status: Ordered perphenazine [...] 08/07/19 9:47:08 EDT, Route to Pharmacy Electronically, NCPDP_ID-[id number], [facility] Start Date: 08/07/19 Status: Ordered simvastatin 20 mg oral tablet See Instructions, take one and a half tablet ( 30 mg ) daily for hyperlipidemia, # 30 tablet, Refills 1, Tot. Refills 1, Maintenance, 08/07/19 9:42:48 EDT, Instructions Replace Required Details, Route to Pharmacy Electronically, [facility]DP[facility]ID-[id number], [facility]... Start Date: 08/07/19 Status: Ordered traZODone [...] 3 Oxygen Saturation [94-100 %] 98 % (10/07/19 8:21 AM) 96 % (10/07/19 5:52 AM) 97 % (10/06/19 10:29 PM) Pulse Rate [55-90 bpm] 113 bpm *H* (10/07/19 8:21 AM) 110 bpm *H* (10/07/19 5:52 AM) 100 bpm *H* (10/06/19 10:29 PM) Blood Pressure [90-138/55-84 mm Hg] 146/93mm Hg *H* (10/07/19 8:21 AM) 163/98mm Hg *H* (10/07/19 5:52 AM) 152/101mm Hg *H* (10/06/19 10:29 PM) Respiratory Rate [16-30 br/min] 18 br/min (10/07/19 8:21 AM) 18 br/min (10/07/19 5:52 AM) 18 br/min (10/06/19 10:29 PM) Temperature [96.8-100.4 DegF] 97.8 DegF (10/07/19 8:21 AM) 98.0 DegF (10/07/19 5:52 AM) 97.9 DegF (10/06/19 10:29 PM) Mode of Delivery (Oxygen) Room air (10/07/19 8:21 AM) Room air (10/07/19 5:52 AM) Room air (10/06/19 10:29 PM) Blood pressure sites Arm, left (10/07/19 8:21 AM) Arm, right (10/07/19 5:52 AM) Arm, left (10/06/19 10:29 PM) Temperature Route Oral (10/07/19 8:21 AM) Oral (10/07/19 5:52 AM) Oral (10/06/19 10:29 PM) Social History Social History Type Response Smoking Status 10 or more cigarette s (1/2 pack or more)/day in last 30 days; Use: smokes 1 pack a day entered on: 05/10/19 Sex Female
--- OUTSIDE RECORDS SUMMARY | 2023-07-16 14:56 | XMS_ITS | Continuity of Care Document ---
Author Name Unknown Organization [facility] Adult Address [address] [place] [address]- Care Team Providers Care Tax Map Technician Name Role Phone Maribel Marquez NP Primary Care Physician [place] [facility] [place] 02/06/21 [facility] Adult [address] [place] [address]- Allergies, Adverse Reactions, Alerts Substance Reaction Severity [...] 07/22/20 18:41:00 EDT, Route to Pharmacy Electronically, [facility], 163.5, cm, 07/22/20 18:29:00 EDT, Height, 102.5, kg, 07/18/20 21:04:00 EDT... Start Date: 07/22/20 Status: Ordered ferrous sulfate 325 mg oral enteric coated tablet 325 mg, 1, tablet, By Mouth, Daily, # 30 tablet, Refills 0, Tot. Refills 0, Maintenance, 12/23/20 15:38:00 EST, Route to Pharmacy Electronically, [facility], Partial fill upon patient request if the prescription is for a schedule II opioid d... Start Date: 12/23/20 Status: Ordered Flovent HFA 110 mcg/inh inhalation aerosol 2 puffs = 220 mcg, Inhalation, 2 times a day, # 1 each, 0 Refills, Maintenance, 12/23/20 15:38:00 EST, Aerosol, [facility], 162, cm, 12/23/20 10:43:00 EST, Height, 122.1, kg, 12/21/20 16:25:00 EST, Dry Weight Start Date: 12/23/20 Status: Ordered Haldol Decanoate decanoate 100 mg/ml injectable solution = 100 mg, Intramuscular, Every 28 days, last dose given on 09/17/2020. Next due 10/15/20., # 1 each, 0Refills, Soft Stop, 07/22/20 18:42:00 EDT, Solution, [facility], 163.5, cm, 07/22/20 18:29:00 EDT, Height, 102.5, kg, 07/18/20 21:04:00 EDT,... Start Date: 07/22/20 Status: Ordered lisinopril 5 mg oral tablet 5 mg, 1, tablet, By Mouth, Daily, # 30 tablet, Refills 0, Tot. Refills 0, Maintenance, 02/09/20 10:10:00 EDT, Route to Pharmacy Electronically, [facility], 165, cm, 02/08/20 19:47:00 EDT, Height, [...] 0 Refills, Maintenance, 12/23/20 16:38:00 EST, Tablet, [facility], Partial fill upon patient request if the prescription is for a schedule II opioid drug., 162, cm, 12/23/20 15:59:00 EST... Start Date: 12/23/20 Stop Date: 01/22/21 Status: Ordered montelukast 10 mg oral tablet 10 mg, 1, tablet, By Mouth, Daily, # 30 tablet, Refills 0, Tot. Refills 0, Maintenance, 02/09/20 10:11:00 EDT, Route to Pharmacy Electronically, [facility], 165, cm, 02/08/20 19:47:00 EDT, Height, 104.5, kg, 02/07/20 8:15:00 EDT, Dry Weight Start Date: 02/09/20 Status: Ordered norethindrone 0.35 mg oral tablet 1 tablet = 0.35 mg, By Mouth, Daily, # 30 tablet, 0 Refills, Maintenance, 02/09/20 10:07:00 EDT, Tablet, [facility], 165, cm, 02/08/20 19:47:00 EDT, Height, [...] Refills, Maintenance, 12/23/20 15:38:00 EST, REC Powder, [facility], Partial fill upon [...] 0 Refills, Maintenance, 02/09/20 10:05:00 EDT, Inhaler, [facility], 165, cm, 02/08/20 19:47:00 EDT, Height, 104.5, kg, 02/07/20 8:15:00 EDT, Dry Weight Start Date: 02/09/20 Stop Date: 03/10/20 Status: Ordered verapamil 240 mg/12 hours oral tablet, extended release 1 tablet = 240 mg, By Mouth, Daily at bedtime, # 30 tablet, 0 Refills, Maintenance, 02/09/20 10:14:00 EDT, SR Tablet, [facility], 165, cm, 02/08/20 19:47:00 EDT, Height, [...]
--- OUTSIDE RECORDS SUMMARY | 2023-07-16 14:56 | XMS_ITS | Continuity of Care Document ---
Author Name Unknown Organization [facility] Adult Address [address] [place] [address]- Care Team Providers Care Posting Clerk Name Role Phone Maribel Marquez NP Primary Care Physician Encounter [facility] [place] Date(s): 07/28/21 - 08/27/21 [facility] Adult [address] [place] [address]- Allergies, Adverse Reactions, Alerts Substance Reaction Severity [...] 0 Refills, Maintenance, 02/09/20 10:08:00 EDT, Tablet, [facility], 165, cm, 02/08/20 19:47:00 EDT, Height, 104.5, kg,02/07/20 8:15:00 EDT, Dry Weight Start Date: 02/09/20 Status: Ordered doxazosin 1 mg oral tablet 3 mg, 3, tablet, By Mouth, Daily at bedtime, # 90 tablet, Refills 0, Tot. Refills 0, Maintenance, 07/22/20 18:41:00 EDT, Route to Pharmacy Electronically, [facility], 163.5, cm, 07/22/20 18:29:00 EDT, Height, [...] 3 Refills, Maintenance, 05/09/21 8:41:00 EDT, Aerosol, [facility], 165, cm, 04/11/21 7:42:00 EDT, Height, 102.6, kg, 02/12/21 12:14:00 EDT, Dry Weight Start Date: 05/09/21 Status: Ordered Haldol Decanoate decanoate 100 mg/ml injectable solution = 100 mg, Intramuscular, Every 28 days, last dose given on 09/17/2020. Next due 10/15/20., # 1 each, 0Refills, Soft Stop, 07/22/20 18:42:00 EDT, Solution, [facility], 163.5, cm, 07/22/20 18:29:00 EDT, Height, [...] 05/09/21 8:43:00 EDT, Route to Pharmacy Electronically, [facility], 165, cm, 04/11/21 7:42:00 EDT, Height, [...] each, 1 Refills, Maintenance, 05/09/21 8:43:00 EDT,Tablet, [facility], Partial fill upon patient request if the prescription is for a schedule II opioid drug., 165, cm, 04/11/21 7:42:00 EDT, H... Start Date: 05/09/21 Stop Date: 11/05/21 Status: Ordered montelukast 10 mg oral tablet 10 mg, 1, tablet, By Mouth, Daily, # 90 tablet, Refills 1, Tot. Refills 1, Maintenance, 05/09/21 8:45:00 EDT, Route to Pharmacy Electronically, [facility], 165, cm, 04/11/21 7:42:00 EDT, Height, 102.6, kg, 02/12/21 12:14:00 EDT, Dry Weight Start Date: 05/09/21 Status: Ordered naltrexone 50 mg oral tablet 0 Refills, Maintenance, 05/04/21 9:26:00 EDT, Partial fill upon patient request if the prescriptionis for a schedule II opioid drug. Start Date: 05/04/21 Status: Ordered nystatin topical 370635 u/gm cream 1 application, Topically, 2 times a day, for 21 days, Apply to rash under breasts, # 30 Gm, 0 Refills, Acute 08/29/21 7:41:00 EST, 08/08/21 7:41:00 EDT, Cream, [facility], Partial fill uponpatient request if the [...] Gm, 5 Refills, Acute, 05/10/21 11:59:00 EDT, [facility], 15, TAKE 17 GM BY MOUTH [...] 0 Refills, Maintenance, 02/09/20 10:05:00 EDT, Inhaler, [facility], 165, cm, 02/08/20 19:47:00 EDT, Height, 104.5, kg, 02/07/20 8:15:00 EDT, Dry Weight Start Date: 02/09/20 Stop Date: 03/10/20 Status: Ordered verapamil 240 mg/12 hours oral tablet, extended release 1 tablet = 240 mg, By Mouth, Daily at bedtime, # 90 tablet, 1 Refills, Maintenance, 05/09/21 8:45:00 EDT, SR Tablet, [facility], 165, cm, 04/11/21 7:42:00 EDT, Height, [...]
--- OUTSIDE RECORDS SUMMARY | 2023-07-16 14:56 | XMS_ITS | Continuity of Care Document ---
Author Name Unknown Organization [facility] ter Address [address] [place] [id number]- Care Team Providers Care Color Blender Name Role Phone Maribel Marquez NP Primary Care Physician [place] [facility] [place] 04/26/22 - 04/27/[address] [address]- Encounter Diagnosis Depression with suicidal ideation(Final) - 04/26/22 Discharge Disposition: A-D/C Home Attending Physician: Mary Beltran MD Admitting Physician: Mray Beltran MD Referring Physician: Not on Staff, [...] Gi benton influenza virus vaccine, inactivated 07/23/09 Urssel rded influenza virus vaccine, inactivated 07/17/07 Russel [...] tablet, 0 Refills, Maintenance, 01/04/22 11:12:00 EDT, [facility], Partial fill upon patient request if [...] 04/11/21 9:22:00 EDT, Route to Pharmacy Electronically, [facility], Partial fill upon patient request if the prescription is for a schedule II opioid drRobi.. Start Date: 04/11/21 Stop Date: 01/06/22 Status: Ordered Flovent HFA 110 mcg/inh inhalation aerosol 2 puffs, Inhalation, 2 times a day, # 12 Gm, 1 Refills, [facility], 162, cm, 03/20/22 19:50:00 EDT, Height, [...] A DAY, # 60 tablet, 5 Refills, [facility],165, cm, 01/19/22 13:55:00 EDT, Height, 103, [...] 01/04/22 11:12:00 EDT, Route to Pharmacy Electronically, [facility], 165, cm, 12/19/21 10:41:00 EST, Height, 103, kg, 11/26/21 8:59:00 EST, DrRobi.. Start Date: 01/04/22 Status: Ordered Nicotine 2 mg gum 1 each = 2 mg, Chew, Every 2 hours, PRN as needed for smoking cessation, for 4 week(s), # 336 each,1 Refills, Acute 05/19/22 14:46:00 EDT, 03/24/22 14:46:00 EDT, Gum, [facility], Partial fill upon patient request if [...] Tablet 240 mg, SR Tablet, By Mouth, 04/26/22 21:00:00 EDT Start Date: 04/26/22 Stop Date: 04/26/22 Status: Completed Problem List Condition Effective Dates [...] 3 Oxygen Saturation [94-100 %] 96 % (04/27/22 8:33 AM) 98 % (04/27/22 4:58 AM) 98 % (04/26/22 10:05 PM) Pulse Rate [55-90 bpm] 62 bpm (04/27/22 8:33 AM) 64 bpm (04/27/22 4:58 AM) 78 bpm (04/26/22 10:05 PM) Blood Pressure [90-138/55-84 mm Hg] 92/39mm Hg (04/27/22 8:33 AM) 116/63mm Hg (04/27/22 4:58 AM) 121/72mm Hg (04/26/22 10:05 PM) Respiratory Rate [16-30 br/min] 16 br/min (04/27/22 8:33 AM) 17 br/min (04/27/22 4:58 AM) 17 br/min (04/26/22 10:05 PM) Temperature [96.8-100.4 DegF] 98.2 DegF (04/27/22 8:33 AM) 98.0 DegF (04/27/22 4:58 AM) 98.0 DegF (04/26/22 10:05 PM) Mode of Delivery (Oxygen) Room air (04/27/22 8:33 AM) Room air (04/26/22 10:05 PM) Room air (04/26/22 8:42 PM) Blood pressure sites Arm, left (04/27/22 8:33 AM) Arm, left (04/27/22 4:58 AM) Arm, left (04/26/22 10:05 PM) Temperature Route Oral (04/27/22 8:33 AM) Oral (04/27/22 4:58 AM) Oral (04/26/22 10:05 PM) Social History Social History Type Response Smoking Status 10 or more cigarette s (1/2 pack or more)/day in last 30 days; Type: Cigarettes; Other: Reports smoking 1/2-1 packs/day, ending on level of stress; Started at age: 25; entered on: 12/31/20 Sex
--- OUTSIDE RECORDS SUMMARY | 2023-07-16 14:56 | XMS_ITS | Continuity of Care Document ---
Author Name Unknown Organization [facility] ter Address [address] [place] [address]- Care Team Providers Care Regional Vice President Surgical Sales Name Role Phone Maribel Marquez NP Primary Care Physician Encounter [facility] Date(s): 06/09/23 - 06/09/[address] [address]- Encounter Diagnosis Suicidal ideation(Final) - 06/09/23 Discharge Disposition: A-D/C Home Attending Physician: Marie Bobby DO Admitting Physician: Marie Bobby DO Referring Physician: Not on Staff, Referring MD Allergies, Adverse Reactions, Alerts Substance Reaction Severity Status codeine Active Macrobid Active Seafood Active lithium 1 Active penicillin [...] each, 5 Refills, Maintenance, 05/22/23 11:32:00 EDT, [facility], Partial fill upon patient request if the prescription is for a schedule II opioid drug., 2 puffs Inhal... Start Date: 05/22/23 Stop Date: 05/22/24 Status: Ordered albuterol CFC free 90 mcg/inh inhalation aerosol 90 mcg, 1, puffs, Inhalation, Every 4 hours, PRN, # 6.7 Gm, Refills 0, Tot. Refills 0, Maintenance,11/16/22 10:33:00 EST, Inhaler, Route to Pharmacy Electronically, NCPDP_[id number], [facility], 163, cm, 11/16/22 9:43:00 EST, Height, 97.3,... Start Date: 11/16/22 Status: Ordered atorvastatin 10 mg oral tablet 1 tablet = 10 mg, By Mouth, Daily at bedtime, # 30 tablet, 0 Refills, Maintenance, 11/16/22 10:33:00 EST, Tablet, [facility], Partial fill upon patient request if [...] 0 Refills, Maintenance, 11/16/22 10:33:00 EST, Tablet, [facility], Partial fill upon patient request if [...] 11/16/22 10:34:00 EST, Route to Pharmacy Electronically, [facility], Partial fill upon patient request if the prescription is for a schedule II opioid d... Start Date: 11/16/22 Stop Date: 08/13/23 Status: Ordered FLUoxetine 20 mg oral capsule 80 mg, 4, capsule, By Mouth, Daily in AM, # 120 capsule, Refills 0, Tot. Refills 0, Maintenance, 11/16/22 10:34:00 EST, Route to Pharmacy Electronically, [facility], Partial fill upon patient request if [...] 11/16/22 10:34:00 EST, Route to Pharmacy Electronically, [facility], Partial fill upon patientrequest if the [...] 60 tablet, 1 Refills, Maintenance,02/22/23 10:08:00 EDT, [facility], 146, cm, 02/05/23 20:22:00 EDT, Height, [...] 0 Refills, Maintenance, 11/16/22 10:34:00 EST, Tablet, [facility], Partial fill upon patient request if [...] 11/16/22 10:34:00 EST, Route to Pharmacy Electronically, [facility], Partial fill upon patient request if [...] 11:34:00 EDT, 05/22/23 11:32:00 EDT, ER Tablet, [facility], Partial fill upon patient request if the prescription is for a radha... Start Date: 05/22/23 Stop Date: 05/29/24 Status: Ordered nystatin topical [id number] u/gm cream 1 application, Topically, 2 times a day, # 15 Gm, 0 Refills, Maintenance, 01/05/23 15:04:00 EDT, Cream, [facility], Partial fill upon patient request if the prescription is for a schedule II opioid drug., 1 application Topically 2 times a da... Start Date: 01/05/23 Status: Ordered nystatin topical 191279 u/gm cream 0 Refills, Maintenance, 01/06/23 18:05:00 [...] 11/16/22 10:34:00 EST, Route to Pharmacy Electronically, [facility], Partial fill upon patient request if [...] Maintenance,11/16/22 10:34:00 EST, Route to Pharmacy Electronically, [facility], Partial fill upon patient request if [...] 1 Oxygen Saturation [94-100 %] 98 % (06/09/23 9:20 PM) Pulse Rate [55-90 bpm] 97 bpm *H* (06/09/23 9:20 PM) Blood Pressure [90-138/55-84 mm Hg] 129/ 78mm Hg (06/09/23 9:20 PM) Respiratory Rate [16-30 br/min] 17 br/mi n (06/09/23 9:20 PM) Temperature [96.8-100.4 DegF] 97.8 DegF (06/09/23 9:20 PM) Mode of Delivery (Oxygen) Room air (06/09/23 9:20 PM) Blood pressure sites Arm, right (06/09/23 9:20 PM) Temperature Route Oral (06/09/23 9:20 PM) Social History Social History Type Response [...] Care Nurse Name: Alba Daily RN Position: [facility] RN Member Role: Primary Care Nurse Name: Maribel Marquez NP Position: [facility] PCO Associate Professional Member Role: PCP Address: Address: [address] [place] [id number] Name: Jose Ramirez RN [facility]: [facility] [...] Role: Primary Care Nurse Address: Address: [address] [place] [address] [facility] [place] [address]- Name: Parvez Kaba MD Position: [facility] Renal MD Member Role: Lifetime Consulting Physician Address: Address: [address] [place] [address] [facility] [place] [address]- Name: Mirna Paul RN [facility]: [facility] [...] RN Position: [facility] Hospital Precision Optics Technician Member Role: Primary Care Nurse Name: Lalit Romo MD Position: [facility] Resident Member Role: ED Resident Address: Address: [address] [place] [id number]- Name: Marie Bobby DO Position: [facility] Resident Member Role: Admitting Physician Address: Address: [address] [place] [phone]- Name: Isai Kirkland [place] Position: [facility] ED TA CARIDAD Name: Lenore Baldwin RN Position: [facility] ED RN W/OE and Tasks Member Role: Patient Care Provider Care Team Related Persons Name: JO-ANN ROMANMIXER ATTENDANTINDRA Address: [address] [place] [address] Name: VACUUM REPAIRERGREGG Address: [address] [place] [address] Name: CARLOS PZA Address: home [address] [place] [address]
--- OUTSIDE RECORDS SUMMARY | 2023-07-16 14:57 | XMS_ITS | Continuity of Care Document ---
Author Name Unknown Organization [facility] ter Address [address] [place] [id number]- Care Team Providers Care Cutter Out Name Role Phone Maribel Marquez NP Primary Care Physician [phone] Encounter [facility] Date(s): 01/16/23 - 01/16/[address] [address]- Encounter Diagnosis Behavior safety risk(Final) - 01/16/23 Discharge Disposition: A-D/C Home Attending Physician: Yony [...] 10:33:00 EST, Inhaler, Route to Pharmacy Electronically, [id number], [facility], 163, cm, 11/16/22 9:43:00 EST, Height, 97.3,... Start Date: 11/16/22 Status: Ordered atorvastatin 10 mg oral tablet 1 tablet = 10 mg, By Mouth, Daily at bedtime, # 30 tablet, 0 Refills, Maintenance, 11/16/22 10:33:00 EST, Tablet, [facility], Partial fill upon patient request if [...] 0 Refills, Maintenance, 11/16/22 10:34:00 EST, Tablet, [facility], Partial fill upon patient request [...] Start Date: 01/06/23 Status: Ordered nystatin topical [id number] u/gm cream 1 application, Topically, 2 times a day, # 15 Gm, 0 Refills, Maintenance, 01/05/23 15:04:00 EDT, Cream, [facility], Partial fill upon patient request if the prescription is for a schedule II opioid drug., 1 application Topically 2 times a da... Start Date: 01/05/23 Status: Ordered nystatin topical [id number] u/gm cream 0 Refills, Maintenance, 01/06/23 18:05:00 [...] Maintenance,11/16/22 10:34:00 EST, [facility] to [facility]acy Electronically, [facility] [...] 3 Oxygen Saturation [94-100 %] 97 % (01/16/23 3:49 AM) 98 % (01/16/23 1:04 AM) Pulse Rate [55-90 bpm] 99 bpm *H* (01/16/23 5:06 AM) 100 bpm *H* (01/16/23 3:49 AM) 120 bpm *H* (01/16/23 1:04 AM) Blood Pressure [90-138/55-84 mm Hg] 135/83mm Hg (01/16/23 3:49 AM) 134/83mm Hg (01/16/23 1:04 AM) Respiratory Rate [16-30 br/min] 18 br/min (01/16/23 5:06 AM) 15 br/min *L* (01/16/23 3:49 AM) 16 br/min (01/16/23 1:04 AM) Temperature [96.8-100.4 DegF] 98.2 DegF (01/16/23 1:04 AM) Mode of Delivery (Oxygen) Room air (01/16/23 1:04 AM) Social History Social History Type Response Smoking Status 10 or more cigarette s (1/2 pack or more)/day in last 30 days; Type: Cigarettes; Other: Reports smoking 1/2-1 packs/day, ending on level of stress; Started at age: 25; entered on: 11/18/22 Sex Note * Robby Warren DO: PERFORM, SIGN, VERIFY Event Display: Patient Education Handout Authored Date: [id number] Patient Care team information Care Team Personnel Name: Rudi Ruiz RN Position: [facility] ED RN W/OE and Tasks Member Role: Primary Care Nurse Name: Alicja Riggs RN Position: [facility] RN Member Role: Primary Care Nurse Name: Harmony Pagan Position: [facility] RN Member Role: Primary Care Nurse Name: Ros Fu RN Position: [facility] RN Member Role: Primary Care Nurse Name: Hilda Mccabe RN Position: [facility] RN Member Role: Primary Care Nurse Name: Rosana Kearney RN Position: [facility] SN RN Member Role: Primary Care Nurse Name: Wil Flood RN Position: [facility] RN Member Role: Primary Care Nurse Name: Gagandeep Sheldon RN Position: [facility] RN Member Role: Primary Care Nurse Name: Chip Morton Position: [facility] Outreach Member Role: Lifetime Consulting Physician Name: Alba Daily RN Position: [facility] RN Member Role: Primary Care Nurse Name: Maribel Marquez NP Position: [facility] PCO Associate Professional Member Role: PCP Address: Address: [address] [place] [address]- Name: Jose Ramirez RN Position: [facility] RN Member Role: Primary Care Nurse Name: Brittany Butts RN Position: [facility] AMB Nurse Member Role: Primary Care Nurse Name: Pauline Mcadams RN Position: [facility] RN Member Role: Primary Care Nurse Name: Mary Sánchez RN Position: [facility] RN Member Role: Primary Care Nurse Name: Shama Rosado RN Position: [facility] RN Member Role: Primary Care Nurse Name: Jackie Snyder RN Position: [facility] RN Member Role: Primary Care Nurse Name: Jay Burks NP Position: Reference Physician Member Role: Primary Care Nurse Address: Address: [address] [place], [place] [id number] [facility] [place] [address]- [place] Name: Parvez Kaba MD Position: [facility] Renal MD Member Role: Lifetime Consulting Physician Address: Address: [address] [place] [address] [facility] [place] [address]- [place] Name: Yoana Ledezma RN Position: [facility] RN Member Role: Primary Care Nurse Name: Mirna Paul RN Position: [facility] OB RN Member Role: Primary Care Nurse Name: Latonya Rahman RN Position: [facility] Onco RN Member Role: Primary Care Nurse Name: Viki Gonzalez RN Position: [facility] RN Member Role: Primary Care Nurse Name: Claudia Presley RN Position: [facility] RN Member Role: Primary Care Nurse Name: Iris Villa RN Position: [facility] Hospital Bookmobile Driver Member Role: Primary Care Nurse Name: Yony Echevarria MD Position: [facility] ED Medicine MD Member Role: ED Attending Physician Address: Address: [address] [place] [address] Name: Marco Antonio Bazan Position: [facility] ED TA [facility] Member Role: Claims Consultant Name: Robby Warren DO Position: [facility] Resident Member Role: ED Resident Address: Address: [address] [place] [address] Name: Tiffanie Summers RN Position: [facility] ED RN W/OE and Tasks Member Role: Patient Care Provider Care Team Related Persons Name: JO-ANN ROMANSUPERVISOR BOILERMAKING SHOPINDRA Address: [address] [place] [address] Name: SUPERVISOR LEAF SPRING FABRICATIONGREGG Address: home [address] [place] [address] Name: CARLOS PAZ Address: home [address] [place] [address]
--- OUTSIDE RECORDS SUMMARY | 2023-07-16 14:57 | XMS_ITS | Continuity of Care Document ---
Author Name Unknown Organization [facility] ter Address [address] [place] [address]- Care Team Providers Care Track Liner Operator Name Role Phone Michelle Norris MD Primary Care Physician [phone] Encounter [facility] Date(s): 11/02/20 - 11/02/[address] [address]- Encounter Diagnosis Suicidal ideation(Final) - 11/02/20 Discharge Disposition: A-D/C Home Attending Physician: Robby [...] 0 Refills, Maintenance, 02/09/20 10:07:00 EDT, Tablet, [facility], 165, cm, 02/08/20 19:47:00 EDT, Height, [...] 0 Refills, Maintenance, 02/09/20 10:08:00 EDT, Tablet, [facility], 165, cm, 02/08/20 19:47:00 EDT, Height, 104.5, kg,02/07/20 8:15:00 EDT, Dry Weight Start Date: 02/09/20 Status: Ordered Claritin 10 mg oral tablet 10 mg, 1, tablet, By Mouth, Daily, # 30 tablet, Refills 0, Tot. Refills 0, Maintenance, 02/09/20 10:10:00 EDT, Route to Pharmacy Electronically, [facility], 165, cm, 02/08/20 19:47:00 EDT, Height, 104.5, kg, 02/07/20 8:15:00 EDT, Dry Weight Start Date: 02/09/20 Status: Ordered Colace sodium 100 mg oral capsule 100 mg, 1, capsule, By Mouth, 2 times a day, PRN, # 60 capsule, Refills 0, Tot. Refills 0, Maintenance, Constipation, 02/09/20 10:08:00 EDT, Route to Pharmacy Electronically, [facility], 165, cm, 02/08/20 19:47:00 EDT, Height, 104.5, kg, 04/... Start Date: 02/09/20 Status: Ordered doxazosin 1 mg oral tablet 3 mg, 3, tablet, By Mouth, Daily at bedtime, # 90 tablet, Refills 0, Tot. Refills 0, Maintenance, 07/22/20 18:41:00 EDT, Route to Pharmacy Electronically, [facility], 163.5, cm, 07/22/20 18:29:00 EDT, Height, 102.5, kg, 07/18/20 21:04:00 EDT... Start Date: 07/22/20 Status: Ordered ferrous sulfate 325 mg oral enteric coated tablet 325 mg, 1, tablet, By Mouth, Daily, # 30 tablet, Refills 0, Tot. Refills 0, Maintenance, 09/24/20 9:06:00 EST, Route to Pharmacy Electronically, [facility], Partial fill upon patient request if the prescription is for a schedule II opioid . Start Date: 09/24/20 Status: Ordered Flonase 50 mcg/inh nasal spray 1 sprays = 50 mcg, Nares, Both, 2 times a day, # 16 Gm, 0 Refills, Maintenance, 02/09/20 10:09:00 EDT, Nasal [place], [facility], 1 sprays Nares, Both 2 times a day,x30 days, 165, cm, 02/08/20 19:47:00 EDT, Height, 104.5, kg, 02/07/20 8:15:00... Start Date: 02/09/20 Stop Date: 03/10/20 Status: Ordered Flovent HFA 110 mcg/inh inhalation aerosol 2 puffs = 220 mcg, Inhalation, 2 times a day, # 1 each, 0 Refills, Maintenance, 02/09/20 10:06:00 EDT, Aerosol, [facility], 165, cm, 02/08/20 19:47:00 EDT, Height, 104.5, kg, 02/07/20 8:15:00 EDT, Dry Weight Start Date: 02/09/20 Status: Ordered Haldol Decanoate decanoate 100 mg/ml injectable solution = 100 mg, Intramuscular, Every 28 days, last dose given on 09/17/2020. Next due 10/15/20., # 1 each, 0Refills, Soft Stop, 07/22/20 18:42:00 EDT, Solution, [facility], 163.5, cm, 07/22/20 18:29:00 EDT, Height, [...] 02/09/20 10:10:00 EDT, Route to Pharmacy Electronically, [facility], 165, cm, 02/08/20 19:47:00 EDT, Height, [...] 0 Refills, Maintenance, 09/24/20 9:06:00 EST, Tablet, [facility], Partial fill upon patient request if the prescription is for a schedule II opioid drug., 165, cm, 09/23/20 19:58:00 ES... Start Date: 09/24/20 Status: Ordered montelukast 10 mg oral tablet 10 mg, 1, tablet, By Mouth, Daily, # 30 tablet, Refills 0, Tot. Refills 0, Maintenance, 02/09/20 10:11:00 EDT, Route to Pharmacy Electronically, [facility], 165, cm, 02/08/20 19:47:00 EDT, Height, [...] 0 Refills, Maintenance, 02/09/20 10:07:00 EDT, Tablet, [facility], 165, cm, 02/08/20 19:47:00 EDT, Height, [...] Refills, Maintenance, 09/24/20 9:09:00 EST, REC Powder, [facility], Partial fill [...] 0 Refills, Maintenance, 02/09/20 10:05:00 EDT, Inhaler, [facility], 165, cm, 02/08/20 19:47:00 EDT, Height, 104.5, kg, 02/07/20 8:15:00 EDT, Dry Weight Start Date: 02/09/20 Stop Date: 03/10/20 Status: Ordered verapamil 240 mg/12 hours oral tablet, extended release 1 tablet = 240 mg, By Mouth, Daily at bedtime, # 30 tablet, 0 Refills, Maintenance, 02/09/20 10:14:00 EDT, SR Tablet, [facility], 165, cm, 02/08/20 19:47:00 EDT, Height, [...] 1 Oxygen Saturation [94-100 %] 100 % (11/02/20 12:21 PM) Pulse Rate [55-90 bpm] 94 bpm *H* (11/02/20 12:21 PM) Blood Pressure [90-138/55-84 mm Hg] 122/ 76mm Hg (11/02/20 12:21 PM) Respiratory Rate [16-30 br/min] 20 br/mi n (11/02/20 12:21 PM) Temperature [96.8-100.4 DegF] 98 DegF (11/02/20 12:21 PM) Mode of Delivery (Oxygen) Room air (11/02/20 12:21 PM) Blood pressure sites Arm, right (11/02/20 12:21 PM) Temperature Route Oral (11/02/20 12:21 PM) Social History Social History Type Response Smoking Status 10 or more cigarette s (1/2 pack or more)/day in last 30 days; Use: smokes 1 pack a day entered on: 05/10/19 Sex
--- OUTSIDE RECORDS SUMMARY | 2023-07-16 14:57 | XMS_ITS | Continuity of Care Document ---
Author Name Unknown Organization [facility] Adult Address [address] [place] [address]- Care Team Providers Care Internal Grinder Name Role Phone Not on Staff, PCP Primary Care Physician Unavail able Encounter [facility] Date(s): 05/06/21 - 06/05/21 [facility] [address] [place] [id number]- Allergies, Adverse Reactions, Alerts Substance Reaction Severity [...] 07/22/20 18:41:00 EDT, Route to Pharmacy Electronically, [facility], 163.5, cm, 07/22/20 18:29:00 EDT, Height, [...] 3 Refills, Maintenance, 05/09/21 8:41:00 EDT, Aerosol, [facility], 165, cm, 04/11/21 7:42:00 EDT, Height, 102.6, kg, 02/12/21 12:14:00 EDT, Dry Weight Start Date: 05/09/21 Status: Ordered Haldol Decanoate decanoate 100 mg/ml injectable solution = 100 mg, Intramuscular, Every 28 days, last dose given on 09/17/2020. Next due 10/15/20., # 1 each, 0Refills, Soft Stop, 07/22/20 18:42:00 EDT, Solution, [facility], 163.5, cm, 07/22/20 18:29:00 EDT, Height, 102.5, kg, 07/18/20 21:04:00 EDT,... Start Date: 07/22/20 Status: Ordered lisinopril 5 mg oral tablet 5 mg, 1, tablet, By Mouth, Daily, # 90 tablet, Refills 1, Tot. Refills 1, Maintenance, 05/09/21 8:43:00 EDT, Route to Pharmacy Electronically, [facility], 165, cm, 04/11/21 7:42:00 EDT, Height, 102.6, kg, 02/12/21 12:14:00 EDT, Dry Weight Start Date: 05/09/21 Status: Ordered loratadine 10 mg oral tablet 10 mg, 1, tablet, By Mouth, Daily, # 90 tablet, Refills 3, Tot. Refills 3, Maintenance, 04/11/21 9:38:00 EDT, Route to Pharmacy Electronically, [facility], Partial fill upon patient requestif the [...] each, 1 Refills, Maintenance, 05/09/21 8:43:00 EDT,Tablet, [facility], Partial fill upon patient request if the prescription is for a schedule II opioid drug., 165, cm, 04/11/21 7:42:00 EDT, H... Start Date: 05/09/21 Stop Date: 11/05/21 Status: Ordered montelukast 10 mg oral tablet 10 mg, 1, tablet, By Mouth, Daily, # 90 tablet, Refills 1, Tot. Refills 1, Maintenance, 05/09/21 8:45:00 EDT, Route to Pharmacy Electronically, [facility], 165, cm, 04/11/21 7:42:00 EDT, Height, [...] Gm, 5 Refills, Acute, 05/10/21 11:59:00 EDT, [facility], 15, TAKE 17 GM BY MOUTH [...] 0 Refills, Maintenance, 02/09/20 10:05:00 EDT, Inhaler, [facility], 165, cm, 02/08/20 19:47:00 EDT, Height, 104.5, kg, 02/07/20 8:15:00 EDT, Dry Weight Start Date: 02/09/20 Stop Date: 03/10/20 Status: Ordered verapamil 240 mg/12 hours oral tablet, extended release 1 tablet = 240 mg, By Mouth, Daily at bedtime, # 90 tablet, 1 Refills, Maintenance, 05/09/21 8:45:00 EDT, SR Tablet, [facility], 165, cm, 04/11/21 7:42:00 EDT, Height, [...]
--- OUTSIDE RECORDS SUMMARY | 2023-07-16 14:57 | XMS_ITS | Continuity of Care Document ---
Author Name Unknown Organization [facility] ter Address [address] [place] [id number]- Care Team Providers Care Boring Machine Feeder Name Role Phone Maribel Marquez NP Primary Care Physician [phone] Encounter [facility] Date(s): 06/14/23 - 06/14/[address] [address]- Discharge Disposition: A-D/C Home Attending Physician: Ros [...] each, 5 Refills, Maintenance, 05/22/23 11:32:00 EDT, [facility], Partial fill upon patient request if the prescription is for a schedule II opioid drug., 2 puffs Inhal... Start Date: 05/22/23 Stop Date: 05/22/24 Status: Ordered albuterol CFC free 90 mcg/inh inhalation aerosol 90 mcg, 1, puffs, Inhalation, Every 4 hours, PRN, # 6.7 Gm, Refills 0, Tot. Refills 0, Maintenance,11/16/22 10:33:00 EST, Inhaler, Route to Pharmacy Electronically, NCPDP_[id number], [facility], 163, cm, 11/16/22 9:43:00 EST, [...] 11/16/22 10:33:00 EST, Route to Pharmacy Electronically, [facility], [...] 10:34:00 EST, Route to Pharmacy Electronically, [facility], Partial fill upon patient request if the prescription is for a schedule II opioid d... Start Date: 11/16/22 Stop Date: 08/13/23 Status: Ordered FLUoxetine 20 mg oral capsule 80 mg, 4, capsule, By Mouth, Daily in AM, # 120 capsule, Refills 0, Tot. Refills 0, Maintenance, 11/16/22 10:34:00 EST, Route to Pharmacy Electronically, [facility] [...] 10:34:00 EST, Route to Pharmacy Electronically, [facility], Partial fill upon patientrequest if the [...] 10:51:00 EDT, Route to Pharmacy Electronically, [facility] [...] 60 tablet, 1 Refills, Maintenance,02/22/23 10:08:00 EDT, [facility], 146, cm, 02/05/23 20:22:00 EDT, Height, [...] Refills, Maintenance, 11/16/22 10:34:00 EST, Tablet, [facility], Partial fill [...] 11:34:00 EDT, 05/22/23 11:32:00 EDT, ER Tablet, [facility], Partial fill upon patient request if the prescription is for a radha... Start Date: 05/22/23 Stop Date: 05/29/24 Status: Ordered nystatin topical [id number] u/gm cream 1 application, Topically, 2 times a day, # 15 Gm, 0 Refills, Maintenance, 01/05/23 15:04:00 EDT, Cream, [facility], Partial fill upon patient request if the prescription is for a schedule II opioid drug., 1 application Topically 2 times a da... Start Date: 01/05/23 Status: Ordered nystatin topical [id number] u/gm cream 0 Refills, Maintenance, 01/06/23 18:05:00 [...] 2 Oxygen Saturation [94-100 %] 96 % (06/14/23 10:32 PM) 100 % (06/14/23 8:35 PM) Pulse Rate [55-90 bpm] 87 bpm (06/14/23 10:32 PM) 89 bpm (06/14/23 8:35 PM) Blood Pressure [90-138/55-84 mm Hg] 133/ 84mm Hg (06/14/23 10:32 PM) 149/84mm Hg *H* (06/14/23 8:35 PM) Respiratory Rate [16-30 br/min] 18 br/mi n (06/14/23 10:32 PM) 18 br/min (06/14/23 8:35 PM) Temperature [96.8-100.4 DegF] 98.9 DegF (06/14/23 10:32 PM) 98.7 DegF (06/14/23 8:35 PM) Mode of Delivery (Oxygen) Room air (06/14/23 10:32 PM) Room air (06/14/23 8:35 PM) Blood pressure sites Arm, right (06/14/23 10:32 PM) Arm, right (06/14/23 8:35 PM) Temperature Route Oral (06/14/23 10:32 PM) Oral (06/14/23 8:35 PM) Social History Social History Type Response Smoking Status 10 or more cigarette s (1/2 pack or more)/day in last 30 days; Type: Cigarettes; Other: Reports smoking 1/2-1 packs/day, ending on level of stress; Started at age: 25; entered on: 11/18/22 Sex Note * Everardo Carney DO: PERFORM Event Display: Patient Education Leaflets Authored Date: [id number] Unknown Causes of Abdominal Pain (Adult) ?? [id number] Unknown Causes of Abdominal Pain (Adult) The exact cause of your belly (abdominal) pain is not clear. Your exam and tests don't suggest a dangerous cause at this time. This does not mean that this is something to worry about. Everyone likesto know the exact cause of the problem. But sometimes with belly pain, there is no clear-cut cause,and this could be a good thing. Your symptoms can be treated, and you should feel better.?? Your condition does not seem serious now. But sometimes the signs of a serious problem may take more time to appear. For this reason,??it's important for you to watch for any new symptoms, problems,??or worsening of your condition. Over the next few days, the abdominal pain may come and go. Or it may be constant. Other common symptoms can include nausea and vomiting. Sometimes it can be difficult to tell if you feel nauseous. You may just feel bad and not connect that feeling to nausea. Constipation, diarrhea, and a fever maygo along with the pain. The pain may continue even if treated correctly over the following days. Depending on how things go, sometimes the cause can become clear and you may need more??or different treatment. You may also need other evaluations, medicines, or tests. Home care Your healthcare provider may prescribe medicine for pain, symptoms, or an infection. ??Follow the healthcare provider's instructions for taking these medicines. General care ??? Rest as much as you can until your next exam. No strenuous activities. ??? Try to not do anything that may have caused your symptoms. This might be not taking any medicines unless otherwise directed by your healthcare provider. It might be not eating certain foods or doing certain activities. ??? Find positions that ease discomfort. A small pillow placed on your belly may help relieve pain. ??? Something warm on your belly such as a heating pad may help, but be careful not to burn yourself. Diet ??? Don???t??force yourself to eat, especially if having cramps, vomiting, or diarrhea. ??? Water is important so you don't get dehydrated. Soup may also be good. Sports drinks may also help, especially if they are not too acidic. Don't drink sugary drinks as this can make things worse. Take liquids in small amounts. Don???t??guzzle them. ??? Caffeine sometimes makes the pain and cramping worse. ??? Don???t take??dairy products if you have vomiting or diarrhea. ??? Don't eat large amounts at a time. Eat several small meals during the day instead of 2 or 3 larger meals. Wait a few minutesbetween bites. ??? Eat a diet low in fiber (called a low-residue diet). Foods allowed include refined breads, white rice, fruit and vegetable juices without pulp, tender meats. These foods will pass more easily through the intestine. ??? Don???t have??whole-grain foods, whole fruits and vegetables,meats, seeds and nuts, fried or fatty foods, dairy, alcohol and spicy foods until your symptoms go away. ?? Follow-up care Follow up with your healthcare provider, or as advised, if your pain does not begin to improve in the next 24 hours. ?? Call 911 Call?? 911 if any of these occur: ??? Trouble breathing ??? Confusion ??? Fainting or loss of consciousness ??? Rapid heart rate ??? Seizure ?? When to seek medical advice Call your healthcare provider right away if any of these occur: ??? Pain gets worse or moves to theright lower abdomen ??? New or worsening vomiting or diarrhea ??? Swelling of the abdomen ??? Unable to pass stool for more than??3 days ??? Fever of 100.4??F (38??C) or higher, or as directed by your healthcare provider ??? Blood in vomit or bowel movements (dark red or black color) ??? Yellow color of eyes and skin (jaundice) ??? Weakness, dizziness ??? Chest, arm, back, neck, or jaw pain ??? Can't keep down medicines, liquids, or water because of too much vomiting ??? If you have a vagina: unexpected vaginal bleeding or missed period ?? Last Reviewed Date: 2021 ?? [id number] [employer]. All rights reserved. This information is not [...] Care Nurse Name: Hilda Mccabe RN Position: [facility] RN Member Role: Primary Care Nurse Name: Rosana Kearney RN Position: [facility] SN RN Member Role: Primary Care Nurse Name: Wil Flood RN Position: [facility] RN Member Role: Primary Care Nurse Name: Gagandeep Sheldon RN Position: [facility] RN Member Role: Primary Care Nurse Name: Alba Daily RN Position: [facility] RN Member Role: Primary Care Nurse Name: Maribel Marquez NP Position: [facility] PCO Associate Professional Member Role: PCP Address: Address: [address] [place] [address]- [place] Name: Jose Ramirez RN Position: [facility] RN Member Role: Primary Care Nurse Name: Brittany Butts RN Position: [facility] AMB Nurse Member Role: Primary Care Nurse Name: Pauline Mcadams RN Position: [facility] RN [...] Role: Primary Care Nurse Address: Address: [address] Clinical & [place] [address]- [place] Name: Parvez Kaba MD Position: [facility] Renal MD Member Role: Lifetime Consulting Physician Address: Address: [address] [place] [address] [facility] [place] [address]- [place] Name: Mirna Paul RN Position: [facility] OB RN Member Role: Primary Care Nurse Name: Latonya Rahman RN Position: [facility] Onco RN Member Role: Primary Care Nurse Name: Viki Gonzalez RN Position: [facility] RN Member Role: Primary Care Nurse Name: Claudia Presley RN Position: [facility] RN Member Role: Primary Care Nurse Name: Iris Villa RN Position: [facility] Hospital Packing House Supervisor Member Role: Primary Care Nurse Name: Ros Corado MD Position: [facility] ED Medicine MD Member Role: Admitting Physician Address: Address: [address] [place] [address] [place] [address]- [place] Name: Kali Renee Position: [facility] ED TA [facility] Member Role: Patient Care Provider Name: Everardo Carney DO Position: [facility] Resident Member Role: ED Resident Address: Address: [address] [place] [address] Emergency [place], [place] [address] Name: Adela Ledesma RN Position: [facility] ED RN W/OE and Tasks Member Role: Patient Care Provider Care Team Related Persons Name: JO-ANN ROMANMANGANESE HEATERINDRA Address: [address] [place] [address] Name: LEG BREAKERGREGG Address: [address] [place] [address] Name: CARLOS PAZ Address: home [address] [place] [address]
--- OUTSIDE RECORDS SUMMARY | 2023-07-16 14:57 | XMS_ITS | Continuity of Care Document ---
Author Name Unknown Organization [facility] ter Address [address] [place] [address]- Care Team Providers Care Front Office Spec Name Role Phone Maribel Marquez NP Primary Care Physician [phone] Encounter [facility] Date(s): 01/16/23 - 01/16/[address] [address]- Encounter Diagnosis Psychiatric problem(Final) - 01/16/23 Discharge Disposition: A-D/C Home Attending Physician: Wilner [...] 10:33:00 EST, Inhaler, Route to Pharmacy Electronically, NCPDP_[id number], [facility], 163, cm, 11/16/22 9:43:00 EST, Height, 97.3,... Start Date: 11/16/22 Status: Ordered atorvastatin 10 mg oral tablet 1 tablet = 10 mg, By Mouth, Daily at bedtime, # 30 tablet, 0 Refills, Maintenance, 11/16/22 10:33:00 EST, Tablet, [facility], Partial fill upon patient request if [...] 11/16/22 10:34:00 EST, Route to Pharmacy Electronically, [facility], Partial fill upon patient request if [...] oral tablet 5 mg, Tablet, By Mouth, 01/16/23 9:56:00 EDT Start Date: 01/16/23 Stop Date: 01/16/23 Status: Completed lisinopril 5 mg oral tablet [...] Start Date: 01/06/23 Status: Ordered nystatin topical [id number] u/gm cream 1 application, Topically, 2 times a day, # 15 Gm, 0 Refills, Maintenance, 01/05/23 15:04:00 EDT, Cream, [facility], Partial fill upon patient request if the prescription is for a schedule II opioid drug., 1 application Topically 2 times a da... Start Date: 01/05/23 Status: Ordered nystatin topical 501003 u/gm cream 0 Refills, Maintenance, 01/06/23 18:05:00 [...] 11/16/22 10:34:00 EST, Route to Pharmacy Electronically, [facility], Partial fill upon patient request if [...] Maintenance,11/16/22 10:34:00 EST, Route to Pharmacy Electronically, [facility], Partial fill upon patient request if [...] Oxygen Saturation [94-100 %] 97 % (01/16/23 4:34 PM) 97 % (01/16/23 7:51 AM) Pulse Rate [55-90 bpm] 98 bpm *H* (01/16/23 4:34 PM) 106 bpm *H* (01/16/23 7:51 AM) Blood Pressure [90-138/55-84 mm Hg] 108/86mm Hg (01/16/23 4:34 PM) 142/75mm Hg *H* (01/16/23 9:38 AM) 142/75mm Hg *H* (01/16/23 7:51 AM) Respiratory Rate [16-30 br/min] 18 br/min (01/16/23 4:34 PM) 20 br/min (01/16/23 7:51 AM) Temperature [96.8-100.4 DegF] 98.0 DegF (01/16/23 7:51 AM) Mode of Delivery (Oxygen) Room air (01/16/23 4:34 PM) Room air (01/16/23 7:51 AM) Blood pressure sites Arm, left (01/16/23 4:34 PM) Arm, left (01/16/23 7:51 AM) Temperature Route Oral (01/16/23 7:51 AM) Social History Social History Type Response [...] Care Nurse Name: Alicja Riggs RN Position: [facility] RN Member Role: Primary Care Nurse Name: Harmony Pagan Position: [facility] RN Member Role: Primary Care Nurse Name: Ros Fu RN Position: [facility] RN Member Role: [...] Primary Care Nurse Name: Chip Morton Position: [facility] Outreach Member Role: Lifetime Consulting Physician Name: Alba Daily RN Position: [facility] RN Member Role: Primary Care Nurse Name: Maribel Marquez NP Position: [facility] PCO Associate Professional Member Role: PCP Address: Address: [address] [place] [address]- Name: Jose Ramirez RN Position: [facility] [...] Role: Primary Care Nurse Address: Address: [address] [place] [address] Clinical & [place] [address]- [place] Name: Parvez Kaba MD Position: [facility] Renal MD Member Role: Lifetime Consulting Physician Address: Address: [address] [place] [address] [facility] [place], [place] - [place] Name: Yoana Ledezma RN Position: [facility] RN Member Role: Primary Care Nurse Name: Mirna Paul RN Position: [facility] OB RN Member Role: Primary Care Nurse Name: Latonya Rahman RN Position: [facility] Onco RN Member Role: Primary Care Nurse Name: Viki Gonzalez RN Position: [facility] RN Member Role: Primary Care Nurse Name: Claudia Presley RN Position: [facility] RN Member Role: Primary Care Nurse Name: Iris Villa RN Position: [facility] Hospital Invoice Coder Member Role: Primary Care Nurse Name: Shelly Clayton RN Position: [facility] ED RN W/OE and Tasks Member Role: Patient Care Provider Name: Juli Wilson DO Position: [facility] Resident Member Role: ED Resident Address: Address: [address] [place] [address] - [place] Name: Wilner Cartagena MD Position: [facility] ED Medicine MD Member Role: Admitting Physician Address: Address: [address] [place] [address] [place] - Name: Julio Constantino Position: [facility] ED TA [facility] Care Team Related Persons Name: JO-ANN ROMANSOCIAL PSYCHOLOGISTINDRA Address: [address] [place] [address] Name: KISS MACHINE OPERATORGREGG Address: [address] [place] [address] Name: CARLOS PAZ Address: [address] [place] [address]
--- OUTSIDE RECORDS SUMMARY | 2023-07-16 14:57 | XMS_ITS | Continuity of Care Document ---
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 Name Role Phone Michelle Norris MD Primary Care Physician Encounter [facility] Date(s): 10/04/20 - 10/05/[address] [address]- Encounter Diagnosis Suicidal ideation(Final) - 10/04/20 Discharge Disposition: A-D/C Home Attending Physician: Nini Patel MD Admitting Physician: Nini Patel MD Referring Physician: Not on Staff, Referring MD Allergies, Adverse Reactions, Alerts Substance Reaction Severity Status codeine Active lithium 1 Active Macrobid Active Seafood Active penicillin Active predniSONE Active sulfa drugs Active Geodon Active 1pt [...] 0 Refills, Maintenance, 02/09/20 10:07:00 EDT, Tablet, [facility], 165, cm, 02/08/20 19:47:00 EDT, Height, [...] 0 Refills, Maintenance, 02/09/20 10:08:00 EDT, Tablet, [facility], 165, cm, 02/08/20 19:47:00 EDT, Height, 104.5, kg,02/07/20 8:15:00 EDT, Dry Weight Start Date: 02/09/20 Status: Ordered Claritin 10 mg oral tablet 10 mg, 1, tablet, By Mouth, Daily, # 30 tablet, Refills 0, Tot. Refills 0, Maintenance, 02/09/20 10:10:00 EDT, Route to Pharmacy Electronically, [facility], 165, cm, 02/08/20 19:47:00 EDT, Height, 104.5, kg, 02/07/20 8:15:00 EDT, Dry Weight Start Date: 02/09/20 Status: Ordered Colace sodium 100 mg oral capsule 100 mg, 1, capsule, By Mouth, 2 times a day, PRN, # 60 capsule, Refills 0, Tot. Refills 0, Maintenance, Constipation, 02/09/20 10:08:00 EDT, Route to Pharmacy Electronically, [facility], 165, cm, 02/08/20 19:47:00 EDT, Height, 104.5, kg, 04/... Start Date: 02/09/20 Status: Ordered doxazosin 1 mg oral tablet 3 mg, 3, tablet, By Mouth, Daily at bedtime, # 90 tablet, Refills 0, Tot. Refills 0, Maintenance, 07/22/20 18:41:00 EDT, Route to Pharmacy Electronically, [facility], 163.5, cm, 07/22/20 18:29:00 EDT, Height, 102.5, kg, 07/18/20 21:04:00 EDT... Start Date: 07/22/20 Status: Ordered ferrous sulfate 325 mg oral enteric coated tablet 325 mg, 1, tablet, By Mouth, Daily, # 30 tablet, Refills 0, Tot. Refills 0, Maintenance, 09/24/20 9:06:00 EST, Route to Pharmacy Electronically, [facility], Partial fill upon patient request if the prescription is for a schedule II opioid . Start Date: 09/24/20 Status: Ordered Flonase 50 mcg/inh nasal spray 1 sprays = 50 mcg, Nares, Both, 2 times a day, # 16 Gm, 0 Refills, Maintenance, 02/09/20 10:09:00 EDT, Nasal [place], [facility], 1 sprays Nares, Both 2 times a day,x30 days, 165, cm, 02/08/20 19:47:00 EDT, Height, 104.5, kg, 02/07/20 8:15:00... Start Date: 02/09/20 Stop Date: 03/10/20 Status: Ordered Flovent HFA 110 mcg/inh inhalation aerosol 2 puffs = 220 mcg, Inhalation, 2 times a day, # 1 each, 0 Refills, Maintenance, 02/09/20 10:06:00 EDT, Aerosol, [facility], 165, cm, 02/08/20 19:47:00 EDT, Height, 104.5, kg, 02/07/20 8:15:00 EDT, Dry Weight Start Date: 02/09/20 Status: Ordered Haldol Decanoate decanoate 100 mg/ml injectable solution = 100 mg, Intramuscular, Every 28 days, last dose given on 09/17/2020. Next due 10/15/20., # 1 each, 0Refills, Soft Stop, 07/22/20 18:42:00 EDT, Solution, [facility], 163.5, cm, 07/22/20 18:29:00 EDT, Height, [...] 02/09/20 10:10:00 EDT, Route to Pharmacy Electronically, [facility], 165, cm, 02/08/20 19:47:00 EDT, Height, 104.5, kg, 02/07/20 8:15:00 EDT, Dry Weight Start Date: 02/09/20 Status: Ordered lisinopril 5 mg oral tablet 5 mg, Tablet, By Mouth, 10/05/20 9:00:00 EST Start Date: 10/05/20 Stop Date: 10/05/20 Status: Completed LORazepam 1 mg oral tablet [...] 0 Refills, Maintenance, 09/24/20 9:06:00 EST, Tablet, [facility], Partial fill upon patient request if the prescription is for a schedule II opioid drug., 165, cm, 09/23/20 19:58:00 ES... Start Date: 09/24/20 Status: Ordered montelukast 10 mg oral tablet 10 mg, 1, tablet, By Mouth, Daily, # 30 tablet, Refills 0, Tot. Refills 0, Maintenance, 02/09/20 10:11:00 EDT, Route to Pharmacy Electronically, [facility], 165, cm, 02/08/20 19:47:00 EDT, Height, [...] 0 Refills, Maintenance, 02/09/20 10:07:00 EDT, Tablet, [facility], 165, cm, 02/08/20 19:47:00 EDT, Height, [...] Refills, Maintenance, 09/24/20 9:09:00 EST, REC Powder, [facility], Partial fill upon patient [...] 0 Refills, Maintenance, 02/09/20 10:05:00 EDT, Inhaler, [facility], 165, cm, 02/08/20 19:47:00 EDT, Height, 104.5, kg, 02/07/20 8:15:00 EDT, Dry Weight Start Date: 02/09/20 Stop Date: 03/10/20 Status: Ordered verapamil 240 mg/12 hours oral tablet, extended release 1 tablet = 240 mg, By Mouth, Daily at bedtime, # 30 tablet, 0 Refills, Maintenance, 02/09/20 10:14:00 EDT, SR Tablet, [facility], 165, cm, 02/08/20 19:47:00 EDT, Height, 104.5, kg, 208:15:00 EDT, Dry Weight Start Date: 02/09/20 Status: Ordered Verapamil Tablet 240 mg, SR Tablet, By Mouth, 10/05/20 9:00:00 EST Start Date: 10/05/20 Stop Date: 10/05/20 Status: Completed Problem List Condition Effective Dates [...] 3 Oxygen Saturation [94-100 %] 98 % (10/05/20 12:19 PM) 96 % (10/05/20 6:17 AM) 95 % (10/05/20 3:08 AM) Pulse Rate [55-90 bpm] 97 bpm *H* (10/05/20 12:19 PM) 95 bpm *H* (10/05/20 9:08 AM) 80 bpm (10/05/20 6:17 AM) Blood Pressure [90-138/55-84 mm Hg] 126/72mm Hg (10/05/20 12:19 PM) 130/82mm Hg (10/05/20 9:09 AM) 130/82mm Hg (10/05/20 9:08 AM) Respiratory Rate [16-30 br/min] 18 br/min (10/05/20 12:19 PM) 18 br/min (10/05/20 6:17 AM) 18 br/min (10/05/20 3:08 AM) Temperature [96.8-100.4 DegF] 97.5 DegF (10/05/20 12:19 PM) 98.0 DegF (10/05/20 6:17 AM) 98.3 DegF (10/05/20 3:42 AM) Mode of Delivery (Oxygen) Room air (10/05/20 12:19 PM) Room air (10/05/20 6:17 AM) Room air (10/05/20 3:08 AM) Blood pressure sites Arm, left (10/05/20 6:17 AM) Arm, left (10/05/20 3:08 AM) Arm, left (10/04/20 9:25 PM) Temperature Route Oral (10/05/20 12:19 PM) Oral (10/05/20 6:17 AM) Oral (10/05/20 3:42 AM) Social History Social History Type Response Smoking Status 10 or more cigarette s (1/2 pack or more)/day in last 30 days; Use: smokes 1 pack a day entered on: 05/10/19 Sex
--- OUTSIDE RECORDS SUMMARY | 2023-07-16 14:57 | XMS_ITS | Continuity of Care Document ---
Author Name Unknown Organization [facility] ter Address [address] [place] [id number]- Care Team Providers Care E Commerce Specialist Name Role Phone Maribel Marquez NP Primary Care Physician [place] [facility] [place] - 04/04/[address] [address]- Discharge Disposition: A-D/C Home Attending Physician: Shama [...] tablet, 0 Refills, Maintenance, 01/04/22 11:12:00 EDT, [facility], Partial fill upon patient request [...] 04/11/21 9:22:00 EDT, Route to Pharmacy Electronically, [facility], Partial fill upon patient request if the prescription is for a schedule II opioid drCheyanne. Start Date: 04/11/21 Stop Date: 01/06/22 Status: Ordered Flovent HFA 110 mcg/inh inhalation aerosol 2 puffs, Inhalation, 2 times a day, # 12 Gm, 2 Refills, [facility], 165, cm, 12/19/21 10:41:00 EST, [...] A DAY, # 60 tablet, 5 Refills, [facility],165, cm, 01/19/22 13:55:00 EDT, Height, [...] 01/04/22 11:12:00 EDT, Route to Pharmacy Electronically, [facility], 165, cm, 12/19/21 10:41:00 EST, Height, 103, kg, 11/26/21 8:59:00 EST, DrRobi.. Start Date: 01/04/22 Status: Ordered Nicotine 2 mg gum 1 each = 2 mg, Chew, Every 2 hours, PRN as needed for smoking cessation, for 4 week(s), # 336 each,1 Refills, Acute 05/19/22 14:46:00 EDT, 03/24/22 14:46:00 EDT, Gum, [facility], Partial fill upon patient request [...] 01/19/22 10:48:00 EDT, Route to Pharmacy Electronically, [facility], Partial fill upon patient request [...] Refills, Maintenance, 05/09/21 8:45:00 EDT, SR Tablet, [facility], 165, cm, 04/11/21 7:42:00 EDT, Height, 102.6, kg, 02/12/21 12:14:00 EDT, Dry Weight Start Date: 05/09/21 Status: Ordered Verapamil SR Tablet 240 mg, SR Tablet, By Mouth, 04/04/22 9:00:00 EDT Start Date: 04/04/22 Stop Date: 04/04/22 Status: Completed Problem List Condition Effective Dates [...] 3 Oxygen Saturation [94-100 %] 96 % (04/04/22 7:32 AM) 97 % (04/04/22 6:24 AM) 95 % (04/04/22 2:25 AM) Pulse Rate [55-90 bpm] 80 bpm (04/04/22 7:32 AM) 66 bpm (04/04/22 6:24 AM) 69 bpm (04/04/22 2:25 AM) Blood Pressure [90-138/55-84 mm Hg] 131/74mm Hg (04/04/22 7:32 AM) 131/72mm Hg (04/04/22 6:24 AM) 144/89mm Hg *H* (04/04/22 2:25 AM) Respiratory Rate [16-30 br/min] 18 br/min (04/04/22 7:32 AM) 17 br/min (04/04/22 6:24 AM) 18 br/min (04/04/22 2:25 AM) Temperature [96.8-100.4 DegF] 98.3 DegF (04/04/22 6:24 AM) 98.9 DegF (04/03/22 6:58 PM) Mode of Delivery (Oxygen) Room air (04/04/22 7:32 AM) Room air (04/04/22 6:24 AM) Room air (04/04/22 2:25 AM) Blood pressure sites Arm, left (04/04/22 6:24 AM) Temperature Route Oral (04/04/22 6:24 AM) Oral (04/03/22 6:58 PM) Social History Social History Type Response Smoking Status 10 or more cigarette s (1/2 pack or more)/day in last 30 days; Type: Cigarettes; Other: Reports smoking 1/2-1 packs/day, ending on level of stress; Started at age: 25; entered on: 12/31/20 Sex
--- OUTSIDE RECORDS SUMMARY | 2023-07-16 14:57 | XMS_ITS | Continuity of Care Document ---
Author Name Unknown Organization [facility] ter Address [address] [place] [id number]- Care Team Providers Care Federal Mediator Name Role Phone Maribel Marquez NP Primary Care Physician [place] [facility] [place] 02/17/22 - 02/18/[address] [address]- Encounter Diagnosis Auditory hallucinations(Final) - 02/17/22 Suicidal ideation(Final) - 02/17/22 Discharge Disposition: A-D/C Home Attending Physician: Cara [...] tablet, 0 Refills, Maintenance, 01/04/22 11:12:00 EDT, [facility], Partial fill upon patient request if [...] 04/11/21 9:22:00 EDT, Route to Pharmacy Electronically, [facility], Partial fill upon patient request if the prescription is for a schedule II opioid . Start Date: 04/11/21 Stop Date: 01/06/22 Status: Ordered Flovent HFA 110 mcg/inh inhalation aerosol 2 puffs, Inhalation, 2 times a day, # 12 Gm, 2 Refills, [facility], 165, cm, 12/19/21 10:41:00 EST, Height, 103, kg, 11/26/21 8:59:00 EST, Dry Weight Start Date: 12/27/21 Status: Ordered hydrOXYzine hydrochloride 50 mg oral tablet 1 tablet = 50 mg, By Mouth, Daily, PRN as needed, Maintenance, 11/08/21 12:56:00 EST, ; Start Date: 11/08/21 Status: Ordered lisinopril 5 mg oral tablet 5 mg, Tablet, By Mouth, 02/18/22 9:00:00 EDT Start Date: 02/18/22 Stop Date: 02/18/22 Status: Completed lithium 450 mg oral tablet, [...] 04/04/22 12:34:00 EDT, 01/04/22 12:34:00 EDT, Tablet, [facility], Partial fill upon patient request if the prescription is f... Start Date: 01/04/22 Stop Date: 04/04/22 Status: Ordered metFORMIN 500 mg oral tablet See Instructions, TAKE 1 EACH BY MOUTH 2 TIMES A DAY, # 60 tablet, 5 Refills, [facility],165, cm, 01/19/22 13:55:00 EDT, Height, 103, [...] 01/04/22 11:12:00 EDT, Route to Pharmacy Electronically, [facility], 165, cm, 12/19/21 10:41:00 EST, Height, [...] 01/19/22 10:48:00 EDT, Route to Pharmacy Electronically, [facility], Partial fill upon patient request if [...] Refills, Maintenance, 05/09/21 8:45:00 EDT, SR Tablet, [facility], 165, cm, 04/11/21 7:42:00 EDT, Height, 102.6, kg, 02/12/21 12:14:00 EDT, Dry Weight Start Date: 05/09/21 Status: Ordered Verapamil SR Tablet 240 mg, SR Tablet, By Mouth, 02/18/22 9:00:00 EDT Start Date: 02/18/22 Stop Date: 02/18/22 Status: Completed Problem List Condition Effective Dates [...] 3 Oxygen Saturation [94-100 %] 99 % (02/18/22 8:50 AM) 98 % (02/18/22 6:11 AM) 99 % (02/17/22 10:26 PM) Pulse Rate [55-90 bpm] 77 bpm (02/18/22 8:53 AM) 77 bpm (02/18/22 8:50 AM) 89 bpm (02/18/22 6:11 AM) Blood Pressure [90-138/55-84 mm Hg] 129/78mm Hg (02/18/22 8:53 AM) 129/78mm Hg (02/18/22 8:53 AM) 129/78mm Hg (02/18/22 8:50 AM) Respiratory Rate [16-30 br/min] 16 br/min (02/18/22 8:50 AM) 14 br/min *L* (02/18/22 6:11 AM) 15 br/min *L* (02/17/22 10:26 PM) Temperature [96.8-100.4 DegF] 98.3 DegF (02/18/22 6:11 AM) 98.5 DegF (02/17/22 10:26 PM) 98.7 DegF (02/17/22 5:36 PM) Mode of Delivery (Oxygen) Room air (02/18/22 8:50 AM) Room air (02/18/22 6:11 AM) Room air (02/17/22 10:26 PM) Blood pressure sites Arm, left (02/17/22 10:26 PM) Arm, right (02/17/22 5:36 PM) Temperature Route Oral (02/18/22 6:11 AM) Oral (02/17/22 10:26 PM) Oral (02/17/22 5:36 PM) Social History Social History Type Response Smoking Status 10 or more cigarette s (1/2 pack or more)/day in last 30 days; Type: Cigarettes; Other: Reports smoking 1/2-1 packs/day, ending on level of stress; Started at age: 25; entered on: 12/31/20 Sex
--- OUTSIDE RECORDS SUMMARY | 2023-07-16 14:57 | XMS_ITS | Continuity of Care Document ---
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 Phone Michelle Norris MD Primary Care Physician [phone] En[place] [facility] [place](s): 06/12/20 - 06/13/[address] [address]- [facility] Encounter Diagnosis Depression(Final) - 06/13/20 Discharge Disposition: A-D/C Home Attending Physician: Julio Hagan MD Admitting Physician: Julio Hagan MD Referring Physician: Not on Staff, Referring [...] 0 Refills, Maintenance, 02/09/20 10:07:00 EDT, Tablet, [facility], 165, cm, 02/08/20 19:47:00 EDT, Height, 104.5, kg, 02/07/20 8:15:00 EDT, Dry Weight Start Date: 02/09/20 Status: Ordered chlorproMAZINE 25 mg oral tablet = 25 mg, By Mouth, 3 times a day, PRN Agitation Anxiety, # 90 tablet, 0 Refills, Maintenance, 02/09/20 10:08:00 EDT, Tablet, [facility], 165, cm, 02/08/20 19:47:00 EDT, Height, 104.5, kg,02/07/20 8:15:00 EDT, Dry Weight Start Date: 02/09/20 Status: Ordered Claritin 10 mg oral tablet 10 mg, 1, tablet, By Mouth, Daily, # 30 tablet, Refills 0, Tot. Refills 0, Maintenance, 02/09/20 10:10:00 EDT, Route to Pharmacy Electronically, [facility], 165, cm, 02/08/20 19:47:00 EDT, Height, 104.5, kg, 02/07/20 8:15:00 EDT, Dry Weight Start Date: 02/09/20 Status: Ordered Colace sodium 100 mg oral capsule 100 mg, 1, capsule, By Mouth, 2 times a day, PRN, # 60 capsule, Refills 0, Tot. Refills 0, Maintenance, Constipation, 02/09/20 10:08:00 EDT, Route to Pharmacy Electronically, [facility], 165, cm, 02/08/20 19:47:00 EDT, Height, 104.5, kg, ... Start Date: 02/09/20 Status: Ordered Flonase 50 mcg/inh nasal spray 1 sprays = 50 mcg, Nares, Both, 2 times a day, # 16 Gm, 0 Refills, Maintenance, 02/09/20 10:09:00 EDT, Nasal [place], [facility], 1 sprays Nares, Both 2 times a day,x30 days, 165, cm, 02/08/20 19:47:00 EDT, Height, 104.5, kg, 02/07/20 8:15:00... Start Date: 02/09/20 Stop Date: 03/10/20 Status: Ordered Flovent HFA 110 mcg/inh inhalation aerosol 2 puffs = 220 mcg, Inhalation, 2 times a day, # 1 each, 0 Refills, Maintenance, 02/09/20 10:06:00 EDT, Aerosol, [facility], 165, cm, 02/08/20 19:47:00 EDT, Height, 104.5, kg, 02/07/20 8:15:00 EDT, Dry Weight Start Date: 02/09/20 Status: Ordered lisinopril 5 mg oral tablet 5 mg, 1, tablet, By Mouth, Daily, # 30 tablet, Refills 0, Tot. Refills 0, Maintenance, 02/09/20 10:10:00 EDT, Route to Pharmacy Electronically, [facility], 165, cm, 02/08/20 19:47:00 EDT, Height, 104.5, kg, 02/07/20 8:15:00 EDT, Dry Weight Start Date: 02/09/20 Status: Ordered montelukast 10 mg oral tablet 10 mg, 1, tablet, By Mouth, Daily, # 30 tablet, Refills 0, Tot. Refills 0, Maintenance, 02/09/20 10:11:00 EDT, Route to Pharmacy Electronically, [facility], 165, cm, 02/08/20 19:47:00 EDT, Height, 104.5, kg, 02/07/20 8:15:00 EDT, Dry Weight Start Date: 02/09/20 Status: Ordered norethindrone 0.35 mg oral tablet 1 tablet = 0.35 mg, By Mouth, Daily, # 30 tablet, 0 Refills, Maintenance, 02/09/20 10:07:00 EDT, Tablet, [facility], 165, cm, 02/08/20 19:47:00 EDT, Height, [...] 9:00:00 EDT, 02/09/20 10:22:00 EDT, REC Powder, [facility], 17 Gm By Mouth Daily,Instr:dissolve in water before taking, 165, cm, 02/08/20 19:47:00... Start Date: 02/09/20 Stop Date: 02/08/21 Status: Ordered prazosin 2 mg oral capsule 2 capsule = 4 mg, By Mouth, Daily at bedtime, # 60 capsule, 1 Refills, Maintenance, 02/09/20 10:12:00 EDT, [facility], 165, cm, 02/08/20 19:47:00 EDT, Height, 104.5, kg, 02/07/20 8:15:00 EDT, Dry Weight Start Date: 02/09/20 Stop Date: 03/08/20 Status: Ordered traZODone 150 mg oral tablet 1 tablet = 150 mg, By Mouth, Daily at bedtime, for sleep, # 30 tablet, 1 Refills, Maintenance, 02/09/20 10:13:00 EDT, Tablet, [facility], 165, cm, 02/08/20 19:47:00 EDT, Height, 104.5, kg, 02/07/20 8:15:00 EDT, Dry Weight Start Date: 02/09/20 Status: Ordered Trileptal 150 mg oral tablet 150 mg, 1, tablet, By Mouth, Daily at bedtime, # 30 tablet, Refills 0, Tot. Refills 0, Maintenance,02/09/20 10:12:00 EDT, Route to Pharmacy Electronically, [facility], 165, cm, 02/08/20 19:47:00 EDT, Height, 104.5, kg, 02/07/20 8:15:00 EDT,... Start Date: 02/09/20 Status: Ordered Trileptal 300 mg oral tablet 300 mg, 1, tablet, By Mouth, Daily at bedtime, # 30 tablet, Refills 0, Tot. Refills 0, Maintenance,02/09/20 10:18:00 EDT, Route to Pharmacy Electronically, [facility], 165, cm, 02/08/20 19:47:00 EDT, Height, 104.5, kg, 02/07/20 8:15:00 EDT,... Start Date: 02/09/20 Status: Ordered Ventolin HFA 108 mcg/inh inhalation aerosol with adapter 2 puffs = 180 mcg, Inhalation, 4 times a day, PRN for wheezing, # 1 each, 0 Refills, Maintenance, 02/09/20 10:05:00 EDT, Inhaler, [facility], 165, cm, 02/08/20 19:47:00 EDT, Height, 104.5, kg, 02/07/20 8:15:00 EDT, Dry Weight Start Date: 02/09/20 Stop Date: 03/10/20 Status: Ordered verapamil 240 mg/12 hours oral tablet, extended release 1 tablet = 240 mg, By Mouth, Daily at bedtime, # 30 tablet, 0 Refills, Maintenance, 02/09/20 10:14:00 EDT, SR Tablet, [facility], 165, cm, 02/08/20 19:47:00 EDT, Height, [...] 3 Oxygen Saturation [94-100 %] 98 % (06/13/20 7:59 AM) 98 % (06/12/20 11:30 PM) 100 % (06/12/20 10:18 PM) Pulse Rate [55-90 bpm] 82 bpm (06/13/20 7:59 AM) 88 bpm (06/12/20 11:30 PM) 86 bpm (06/12/20 10:18 PM) Blood Pressure [90-138/55-84 mm Hg] 120/82mm Hg (06/13/20 7:59 AM) 152/97mm Hg *H* (06/12/20 11:30 PM) 151/87mm Hg *H* (06/12/20 10:18 PM) Respiratory Rate [16-30 br/min] 16 br/min (06/13/20 7:59 AM) 18 br/min (06/12/20 11:30 PM) 18 br/min (06/12/20 10:18 PM) Temperature [96.8-100.4 DegF] 98.4 DegF (06/13/20 7:59 AM) 98.3 DegF (06/12/20 11:30 PM) 98.3 DegF (06/12/20 10:18 PM) Mode of Delivery (Oxygen) Room air (06/13/20 7:59 AM) Room air (06/12/20 11:30 PM) Room air (06/12/20 10:18 PM) Blood pressure sites Arm, left (06/13/20 7:59 AM) Temperature Route Oral (06/13/20 7:59 AM) Oral (06/12/20 11:30 PM) Oral (06/12/20 10:18 PM) Social History Social History Type Response Smoking Status 10 or more cigarette s (1/2 pack or more)/day in last 30 days; Use: smokes 1 pack a day entered on: 05/10/19 Sex
--- OUTSIDE RECORDS SUMMARY | 2023-07-16 14:57 | XMS_ITS | Continuity of Care Document ---
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 Start Date: 07/22/20 Status: Ordered ferrous sulfate 325 mg oral enteric coated tablet 325 mg, 1, tablet, By Mouth, Daily, # 90 tablet, Refills 2, Tot. Refills 2, Maintenance, 04/11/21 9:22:00 EDT, Route to Pharmacy Electronically, [facility], Partial fill upon patient request if the prescription is for a schedule II opioid dr.Robi. Start Date: 04/11/21 Stop Date: 01/06/22 Status: Ordered Flovent HFA 110 mcg/inh inhalation aerosol 2 puffs = 220 mcg, Inhalation, 2 times a day, # 3 each, 3 Refills, Maintenance, 05/09/21 8:41:00 EDT, Aerosol, [facility], 165, cm, 04/11/21 7:42:00 EDT, Height, [...] 05/09/21 8:43:00 EDT, Route to Pharmacy Electronically, [facility], 165, cm, 04/11/21 7:42:00 EDT, Height, [...] 04/11/21 9:38:00 EDT, Route to Pharmacy Electronically, [facility], Partial fill upon patient requestif the [...] each, 1 Refills, Maintenance, 05/09/21 8:43:00 EDT,Tablet, [facility], Partial fill upon patient request if [...] 05/09/21 8:45:00 EDT, Route to Pharmacy Electronically, [facility], 165, cm, 04/11/21 7:42:00 EDT, Height, [...] Start Date: 11/08/21 Status: Ordered nystatin topical 540282 u/gm cream 1 application, Topically, 2 times [...] Gm, 5 Refills, Acute, 05/10/21 11:59:00 EDT, [facility], 15, TAKE 17 GM BY MOUTH [...] 0 Refills, Maintenance, 02/09/20 10:05:00 EDT, Inhaler, [facility], 165, cm, 02/08/20 19:47:00 EDT, Height, 104.5, kg, 02/07/20 8:15:00 EDT, Dry Weight Start Date: 02/09/20 Stop Date: 03/10/20 Status: Ordered verapamil 240 mg/12 hours oral tablet, extended release 1 tablet = 240 mg, By Mouth, Daily at bedtime, # 90 tablet, 1 Refills, Maintenance, 05/09/21 8:45:00 EDT, SR Tablet, [facility], 165, cm, 04/11/21 7:42:00 EDT, Height, [...]
--- OUTSIDE RECORDS SUMMARY | 2023-07-16 14:57 | XMS_ITS | Continuity of Care Document ---
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 Start Date: 07/22/20 Status: Ordered ferrous sulfate 325 mg oral enteric coated tablet 325 mg, 1, tablet, By Mouth, Daily, # 90 tablet, Refills 2, Tot. Refills 2, Maintenance, 04/11/21 9:22:00 EDT, Route to Pharmacy Electronically, [facility], Partial fill upon patient request if the prescription is for a schedule II opioid . Start Date: 04/11/21 Stop Date: 01/06/22 Status: Ordered Flovent HFA 110 mcg/inh inhalation aerosol 2 puffs, Inhalation, 2 times a day, # 12 Gm, 2 Refills, [facility], 165, cm, 12/19/21 10:41:00 EST, Height, [...] 05/09/21 8:43:00 EDT, Route to Pharmacy Electronically, [facility], 165, cm, 04/11/21 7:42:00 EDT, Height, [...] 04/11/21 9:38:00 EDT, Route to Pharmacy Electronically, [facility], Partial fill upon patient requestif the [...] 04/04/22 12:34:00 EDT, 01/04/22 12:34:00 EDT, Tablet, [facility], Partial fill upon patient request if the prescription is f... Start Date: 01/04/22 Stop Date: 04/04/22 Status: Ordered metFORMIN 500 mg oral tablet 1 each = 500 mg, By Mouth, 2 times a day, # 180 each, 1 Refills, Maintenance, 05/09/21 8:43:00 EDT,Tablet, [facility], Partial fill upon patient request if [...] 01/04/22 11:12:00 EDT, Route to Pharmacy Electronically, [facility], 165, cm, 12/19/21 10:41:00 EST, Height, [...] Start Date: 11/08/21 Status: Ordered nystatin topical 901805 u/gm cream 1 application, Topically, 2 times [...] Gm, 5 Refills, Acute, 05/10/21 11:59:00 EDT, [facility], 15, TAKE 17 GM BY MOUTH [...] 0 Refills, Maintenance, 02/09/20 10:05:00 EDT, Inhaler, [facility], 165, cm, 02/08/20 19:47:00 EDT, Height, 104.5, kg, 02/07/20 8:15:00 EDT, Dry Weight Start Date: 02/09/20 Stop Date: 03/10/20 Status: Ordered verapamil 240 mg/12 hours oral tablet, extended release 1 tablet = 240 mg, By Mouth, Daily at bedtime, # 90 tablet, 1 Refills, Maintenance, 05/09/21 8:45:00 EDT, SR Tablet, [facility], 165, cm, 04/11/21 7:42:00 EDT, Height, [...]
--- OUTSIDE RECORDS SUMMARY | 2023-07-16 14:57 | XMS_ITS | Continuity of Care Document ---
Author Name Unknown Organization [facility] Adult Address [address] [place] [address]- Care Team Providers Care Dredge Deckhand Name Role Phone Maribel Marquez NP Primary Care Physician [place] [facility] [place](s): 06/27/21 - 07/27/21 [facility] [address] [place] [address]- Allergies, Adverse Reactions, Alerts Substance Reaction Severity [...] 0 Refills, Maintenance, 02/09/20 10:08:00 EDT, Tablet, [facility], 165, cm, 02/08/20 19:47:00 EDT, Height, 104.5, kg,02/07/20 8:15:00 EDT, Dry Weight Start Date: 02/09/20 Status: Ordered doxazosin 1 mg oral tablet 3 mg, 3, tablet, By Mouth, Daily at bedtime, # 90 tablet, Refills 0, Tot. Refills 0, Maintenance, 07/22/20 18:41:00 EDT, Route to Pharmacy Electronically, [facility], 163.5, cm, 07/22/20 18:29:00 EDT, Height, [...] 3 Refills, Maintenance, 05/09/21 8:41:00 EDT, Aerosol, [facility], 165, cm, 04/11/21 7:42:00 EDT, Height, 102.6, kg, 02/12/21 12:14:00 EDT, Dry Weight Start Date: 05/09/21 Status: Ordered Haldol Decanoate decanoate 100 mg/ml injectable solution = 100 mg, Intramuscular, Every 28 days, last dose given on 09/17/2020. Next due 10/15/20., # 1 each, 0Refills, Soft Stop, 07/22/20 18:42:00 EDT, Solution, [facility], 163.5, cm, 07/22/20 18:29:00 EDT, Height, 102.5, kg, 07/18/20 21:04:00 EDT,... Start Date: 07/22/20 Status: Ordered lisinopril 5 mg oral tablet 5 mg, 1, tablet, By Mouth, Daily, # 90 tablet, Refills 1, Tot. Refills 1, Maintenance, 05/09/21 8:43:00 EDT, Route to Pharmacy Electronically, [facility], 165, cm, 04/11/21 7:42:00 EDT, Height, 102.6, kg, 02/12/21 12:14:00 EDT, Dry Weight Start Date: 05/09/21 Status: Ordered loratadine 10 mg oral tablet 10 mg, 1, tablet, By Mouth, Daily, # 90 tablet, Refills 3, Tot. Refills 3, Maintenance, 04/11/21 9:38:00 EDT, Route to Pharmacy Electronically, [facility], Partial fill upon patient requestif the [...] each, 1 Refills, Maintenance, 05/09/21 8:43:00 EDT,Tablet, [facility], Partial fill upon patient request if the prescription is for a schedule II opioid drug., 165, cm, 04/11/21 7:42:00 EDT, H... Start Date: 05/09/21 Stop Date: 11/05/21 Status: Ordered montelukast 10 mg oral tablet 10 mg, 1, tablet, By Mouth, Daily, # 90 tablet, Refills 1, Tot. Refills 1, Maintenance, 05/09/21 8:45:00 EDT, Route to Pharmacy Electronically, [facility], 165, cm, 04/11/21 7:42:00 EDT, Height, [...] Gm, 5 Refills, Acute, 05/10/21 11:59:00 EDT, [facility], 15, TAKE 17 GM BY MOUTH [...] 0 Refills, Maintenance, 02/09/20 10:05:00 EDT, Inhaler, [facility], 165, cm, 02/08/20 19:47:00 EDT, Height, 104.5, kg, 02/07/20 8:15:00 EDT, Dry Weight Start Date: 02/09/20 Stop Date: 03/10/20 Status: Ordered verapamil 240 mg/12 hours oral tablet, extended release 1 tablet = 240 mg, By Mouth, Daily at bedtime, # 90 tablet, 1 Refills, Maintenance, 05/09/21 8:45:00 EDT, SR Tablet, [facility], 165, cm, 04/11/21 7:42:00 EDT, Height, [...]
--- OUTSIDE RECORDS SUMMARY | 2023-07-16 14:57 | XMS_ITS | Continuity of Care Document ---
Author Name Unknown Organization [facility] Adult Address [address] [place] [address]- Care Team Providers Care Dish Stacker Name Role Phone Maribel Marquez NP Primary Care Physician Encounter [facility] [place] Date(s): 06/21/21 - 07/21/21 [facility] Adult [address] [place] [address]- Allergies, Adverse Reactions, Alerts Substance Reaction Severity [...] 0 Refills, Maintenance, 06/28/21 10:16:00 EDT, Tablet, [facility], Partial fill upon patient request if [...] 0 Refills, Maintenance, 02/09/20 10:08:00 EDT, Tablet, [facility], 165, cm, 02/08/20 19:47:00 EDT, Height, 104.5, kg,02/07/20 8:15:00 EDT, Dry Weight Start Date: 02/09/20 Status: Ordered doxazosin 1 mg oral tablet 3 mg, 3, tablet, By Mouth, Daily at bedtime, # 90 tablet, Refills 0, Tot. Refills 0, Maintenance, 07/22/20 18:41:00 EDT, Route to Pharmacy Electronically, [facility], 163.5, cm, 07/22/20 18:29:00 EDT, Height, [...] 3 Refills, Maintenance, 05/09/21 8:41:00 EDT, Aerosol, [facility], 165, cm, 04/11/21 7:42:00 EDT, Height, 102.6, kg, 02/12/21 12:14:00 EDT, Dry Weight Start Date: 05/09/21 Status: Ordered Haldol Decanoate decanoate 100 mg/ml injectable solution = 100 mg, Intramuscular, Every 28 days, last dose given on 09/17/2020. Next due 10/15/20., # 1 each, 0Refills, Soft Stop, 07/22/20 18:42:00 EDT, Solution, [facility], 163.5, cm, 07/22/20 18:29:00 EDT, Height, 102.5, kg, 07/18/20 21:04:00 EDT,... Start Date: 07/22/20 Status: Ordered lisinopril 5 mg oral tablet 5 mg, 1, tablet, By Mouth, Daily, # 90 tablet, Refills 1, Tot. Refills 1, Maintenance, 05/09/21 8:43:00 EDT, Route to Pharmacy Electronically, [facility], 165, cm, 04/11/21 7:42:00 EDT, Height, 102.6, kg, 02/12/21 12:14:00 EDT, Dry Weight Start Date: 05/09/21 Status: Ordered loratadine 10 mg oral tablet 10 mg, 1, tablet, By Mouth, Daily, # 90 tablet, Refills 3, Tot. Refills 3, Maintenance, 04/11/21 9:38:00 EDT, [facility] [...] each, 1 Refills, Maintenance, 05/09/21 8:43:00 EDT,Tablet, [facility], Partial fill upon patient request if the prescription is for a schedule II opioid drug., 165, cm, 04/11/21 7:42:00 EDT, H... Start Date: 05/09/21 Stop Date: 11/05/21 Status: Ordered montelukast 10 mg oral tablet 10 mg, 1, tablet, By Mouth, Daily, # 90 tablet, Refills 1, Tot. Refills 1, Maintenance, 05/09/21 8:45:00 EDT, Route to Pharmacy Electronically, [facility], 165, cm, 04/11/21 7:42:00 EDT, Height, [...] Gm, 5 Refills, Acute, 05/10/21 11:59:00 EDT, [facility], 15, TAKE 17 GM BY MOUTH [...] 0 Refills, Maintenance, 02/09/20 10:05:00 EDT, Inhaler, [facility], 165, cm, 02/08/20 19:47:00 EDT, Height, 104.5, kg, 02/07/20 8:15:00 EDT, Dry Weight Start Date: 02/09/20 Stop Date: 03/10/20 Status: Ordered verapamil 240 mg/12 hours oral tablet, extended release 1 tablet = 240 mg, By Mouth, Daily at bedtime, # 90 tablet, 1 Refills, Maintenance, 05/09/21 8:45:00 EDT, SR Tablet, [facility], 165, cm, 04/11/21 7:42:00 EDT, Height, [...]
--- OUTSIDE RECORDS SUMMARY | 2023-07-16 14:57 | XMS_ITS | Continuity of Care Document ---
Author Name Unknown Organization [facility] ter Address [address] [place] [address]- Care Team Providers Care Auto Slip Cover Installer Name Role Phone Maribel Marquez NP Primary Care Physician Encounter [facility] [place] Date(s): 04/16/22 - 04/17/[address] [address]- Discharge Disposition: A-D/C Home Attending Physician: Shama [...] tablet, 0 Refills, Maintenance, 01/04/22 11:12:00 EDT, [facility], Partial fill upon patient request [...] a day, # 12 Gm, 2 Refills, [facility], 165, cm, 12/19/21 10:41:00 EST, [...] oral tablet 5 mg, Tablet, By Mouth, 04/17/22 9:00:00 EDT Start Date: 04/17/22 Stop Date: 04/17/22 Status: Completed lisinopril 5 mg oral tablet [...] A DAY, # 60 tablet, 5 Refills, [facility],165, cm, 01/19/22 13:55:00 EDT, Height, [...] 11:12:00 EDT, Route to Pharmacy Electronically, [facility], 165, cm, 12/19/21 10:41:00 EST, Height, 103, kg, 11/26/21 8:59:00 EST, . Start Date: 01/04/22 Status: Ordered Nicotine 2 mg gum 1 each = 2 mg, Chew, Every 2 hours, PRN as needed for smoking cessation, for 4 week(s), # 336 each,1 Refills, Acute 05/19/22 14:46:00 EDT, 03/24/22 14:46:00 EDT, Gum, [facility], Partial fill upon patient request [...] 01/19/22 10:48:00 EDT, Route to Pharmacy Electronically, [facility], Partial fill upon patient request [...] Maintenance, 05/09/21 8:45:00 EDT, SR Tablet, [facility], 165, cm, 04/11/21 7:42:00 EDT, Height, 102.6, kg, 02/12/21 12:14:00 EDT, Dry Weight Start Date: 05/09/21 Status: Ordered Verapamil SR Tablet 240 mg, SR Tablet, By Mouth, 04/17/22 9:00:00 EDT Start Date: 04/17/22 Stop Date: 04/17/22 Status: Completed Problem List Condition Effective Dates [...] 3 Oxygen Saturation [94-100 %] 100 % (04/17/22 12:59 PM) 96 % (04/17/22 8:08 AM) 96 % (04/17/22 2:00 AM) Pulse Rate [55-90 bpm] 67 bpm (04/17/22 12:59 PM) 64 bpm (04/17/22 8:08 AM) 67 bpm (04/17/22 2:00 AM) Blood Pressure [90-138/55-84 mm Hg] 116/75mm Hg (04/17/22 12:59 PM) 122/76mm Hg (04/17/22 8:08 AM) 122/76mm Hg (04/17/22 8:08 AM) Respiratory Rate [16-30 br/min] 18 br/min (04/17/22 12:59 PM) 18 br/min (04/17/22 8:08 AM) 18 br/min (04/17/22 2:00 AM) Temperature [96.8-100.4 DegF] 98.3 DegF (04/17/22 8:08 AM) 97.5 DegF (04/17/22 2:00 AM) 98.2 DegF (04/16/22 8:22 PM) Mode of Delivery (Oxygen) Room air (04/17/22 12:59 PM) Room air (04/17/22 8:08 AM) Room air (04/17/22 2:00 AM) Blood pressure sites Arm, left (04/17/22 12:59 PM) Arm, right (04/16/22 8:22 PM) Temperature Route Oral (04/17/22 8:08 AM) Oral (04/17/22 2:00 AM) Oral (04/16/22 8:22 PM) Social History Social History Type Response Smoking Status 10 or more cigarette s (1/2 pack or more)/day in last 30 days; Type: Cigarettes; Other: Reports smoking 1/2-1 packs/day, ending on level of stress; Started at age: 25; entered on: 12/31/20 Sex
--- OUTSIDE RECORDS SUMMARY | 2023-07-16 14:58 | XMS_ITS | Continuity of Care Document ---
Author Name Unknown Organization [facility] Adult Address [address] [place] [address]- Care Team Providers Care Wrapper And Preserver Name Role Phone Maribel Marquez NP Primary Care Physician [phone] [place]counter [facility] [place] Date(s): 10/05/21 - 11/16/21 [facility] Adult [address] [place] [address]- Attending Physician: Maribel Marquez NP Allergies, Adverse [...] 07/22/20 18:41:00 EDT, Route to Pharmacy Electronically, [facility], 163.5, cm, 07/22/20 18:29:00 EDT, Height, [...] 3 Refills, Maintenance, 05/09/21 8:41:00 EDT, Aerosol, [facility], 165, cm, 04/11/21 7:42:00 EDT, Height, [...] 05/09/21 8:43:00 EDT, Route to Pharmacy Electronically, [facility] [...] each, 1 Refills, Maintenance, 05/09/21 8:43:00 EDT,Tablet, [facility], Partial fill upon patient request if [...] 05/09/21 8:45:00 EDT, Route to Pharmacy Electronically, [facility], 165, cm, 04/11/21 7:42:00 EDT, Height, [...] Start Date: 11/08/21 Status: Ordered nystatin topical [id number] u/gm cream 1 application, Topically, 2 times [...] Gm, 5 Refills, Acute, 05/10/21 11:59:00 EDT, [facility], 15, TAKE 17 GM BY MOUTH [...] 0 Refills, Maintenance, 02/09/20 10:05:00 EDT, Inhaler, [facility], 165, cm, 02/08/20 19:47:00 EDT, Height, 104.5, kg, 02/07/20 8:15:00 EDT, Dry Weight Start Date: 02/09/20 Stop Date: 03/10/20 Status: Ordered verapamil 240 mg/12 hours oral tablet, extended release 1 tablet = 240 mg, By Mouth, Daily at bedtime, # 90 tablet, 1 Refills, Maintenance, 05/09/21 8:45:00 EDT, SR Tablet, [facility], 165, cm, 04/11/21 7:42:00 EDT, Height, [...]
--- OUTSIDE RECORDS SUMMARY | 2023-07-16 14:58 | XMS_ITS | Continuity of Care Document ---
Author Name Unknown Organization [facility] Adult Address [address] [place] [address]- Care Team Providers Care Woods Manager Name Role Phone Maribel Marquez NP Primary Care Physician [place] [facility] [place] 07[place]27/21 [facility] Adult [address] [place] [address]- Allergies, Adverse Reactions, Alerts Substance Reaction Severity [...] 0 Refills, Maintenance, 02/09/20 10:08:00 EDT, Tablet, [facility], 165, cm, 02/08/20 19:47:00 EDT, Height, 104.5, kg,02/07/20 8:15:00 EDT, Dry Weight Start Date: 02/09/20 Status: Ordered doxazosin 1 mg oral tablet 3 mg, 3, tablet, By Mouth, Daily at bedtime, # 90 tablet, Refills 0, Tot. Refills 0, Maintenance, 07/22/20 18:41:00 EDT, Route to Pharmacy Electronically, [facility], 163.5, cm, 07/22/20 18:29:00 EDT, Height, [...] 3 Refills, Maintenance, 05/09/21 8:41:00 EDT, Aerosol, [facility], 165, cm, 04/11/21 7:42:00 EDT, Height, 102.6, kg, 02/12/21 12:14:00 EDT, Dry Weight Start Date: 05/09/21 Status: Ordered Haldol Decanoate decanoate 100 mg/ml injectable solution = 100 mg, Intramuscular, Every 28 days, last dose given on 09/17/2020. Next due 10/15/20., # 1 each, 0Refills, Soft Stop, 07/22/20 18:42:00 EDT, Solution, [facility], 163.5, cm, 07/22/20 18:29:00 EDT, Height, 102.5, kg, 07/18/20 21:04:00 EDT,... Start Date: 07/22/20 Status: Ordered lisinopril 5 mg oral tablet 5 mg, 1, tablet, By Mouth, Daily, # 90 tablet, Refills 1, Tot. Refills 1, Maintenance, 05/09/21 8:43:00 EDT, Route to Pharmacy Electronically, [facility], 165, cm, 04/11/21 7:42:00 EDT, Height, 102.6, kg, 02/12/21 12:14:00 EDT, Dry Weight Start Date: 05/09/21 Status: Ordered loratadine 10 mg oral tablet 10 mg, 1, tablet, By Mouth, Daily, # 90 tablet, Refills 3, Tot. Refills 3, Maintenance, 04/11/21 9:38:00 EDT, Route to Pharmacy Electronically, [facility], Partial fill upon patient requestif the [...] each, 1 Refills, Maintenance, 05/09/21 8:43:00 EDT,Tablet, [facility], Partial fill upon patient request if the prescription is for a schedule II opioid drug., 165, cm, 04/11/21 7:42:00 EDT, H... Start Date: 05/09/21 Stop Date: 11/05/21 Status: Ordered montelukast 10 mg oral tablet 10 mg, 1, tablet, By Mouth, Daily, # 90 tablet, Refills 1, Tot. Refills 1, Maintenance, 05/09/21 8:45:00 EDT, Route to Pharmacy Electronically, [facility], 165, cm, 04/11/21 7:42:00 EDT, Height, [...] Gm, 5 Refills, Acute, 05/10/21 11:59:00 EDT, [facility], 15, TAKE 17 GM BY MOUTH [...] 0 Refills, Maintenance, 02/09/20 10:05:00 EDT, Inhaler, [facility], 165, cm, 02/08/20 19:47:00 EDT, Height, 104.5, kg, 02/07/20 8:15:00 EDT, Dry Weight Start Date: 02/09/20 Stop Date: 03/10/20 Status: Ordered verapamil 240 mg/12 hours oral tablet, extended release 1 tablet = 240 mg, By Mouth, Daily at bedtime, # 90 tablet, 1 Refills, Maintenance, 05/09/21 8:45:00 EDT, SR Tablet, [facility], 165, cm, 04/11/21 7:42:00 EDT, Height, [...]
--- OUTSIDE RECORDS SUMMARY | 2023-07-16 14:58 | XMS_ITS | Continuity of Care Document ---
Author Name Unknown Organization [facility] ter Address [address] [place] [address]- Care Team Providers Care Energy Rater Name Role Phone Maribel Marquez NP Primary Care Physician [place] [facility] [place] 09/26/22 - 09/27/[address] [address]- Encounter Diagnosis Auditory hallucinations(Final) - 09/26/22 Nausea(Final) - 09/26/22 Discharge Disposition: A-D/C Home Attending Physician: Skylar [...] tablet, 1 Refills, Maintenance, 07/24/22 15:17:00 EDT, [facility], 165.2, cm, 07/19/22 10:30:00 EDT, Height, [...] a day, # 12 Gm, 1 Refills, [facility], 162, cm, 03/20/22 19:50:00 EDT, Height, [...] 07/21/22 14:07:00 EDT, Route to Pharmacy Electronically, [facility], Partial fill upon patient requestif the prescription is for a schedule II opioid janet. Start Date: 07/21/22 Stop Date: 04/17/23 Status: Ordered lisinopril 5 mg oral tablet 5 mg, Tablet, By Mouth, 09/27/22 9:00:00 EST Start Date: 09/27/22 Stop Date: 09/27/22 Status: Completed metFORMIN 500 mg oral tablet See Instructions, TAKE 1 EACH BY MOUTH 2 TIMES A DAY, # 60 tablet, 5 Refills, 08/07/22 10:55:00 EDT, [facility], 165.2, cm, 07/19/22 10:30:00 EDT, Height, [...] 01/04/22 11:12:00 EDT, Route to Pharmacy Electronically, [facility], 165, cm, 12/19/21 10:41:00 EST, Height, [...] 01/19/22 10:48:00 EDT, Route to Pharmacy Electronically, [facility], Partial fill upon patient request if the prescription is for a schedule... Start Date: 01/19/22 Status: Ordered ProAir HFA 90 mcg/inh inhalation aerosol 2 puffs, Inhalation, 4 times a day, PRN as needed for wheezing, # 6.7 Gm, 1 Refills, Maintenance, 06/23/22 16:17:00 EDT, Aerosol, [facility], Partial fill upon patient request if [...] 07/28/22 7:45:00 EDT, Route to Pharmacy Electronically, [facility], 165.2, cm, 07/19/22 10:30:00 EDT, Height, [...] Refills, Maintenance, 05/09/21 8:45:00 EDT, SR Tablet, [facility], 165, cm, 04/11/21 7:42:00 EDT, Height, [...] Exam Date Time Procedure Performing Provider Status 09/26/22 10:22 PM US RUQ James Loaiza; Auth (V erified) Notes: (US RUQ) Reason For Exam: Abdominal Pain;Other: RESULT: US RUQ US RUQ Hx of Present Illness: from fdc w AH's, SI; Reason: Other:; Abdominal Pain; Clinical Question(s): Cholecystitis COMPARISON: None. FINDINGS: Liver: Limited evaluation. Mildly echogenic. Hepatopetal flow in the main portal vein. Gallbladder: No gallstones. Normal wall thickness. No pericholecystic fluid. Negative Michael sign. Biliary Tree: No intrahepatic or extrahepatic bile duct dilation is identified. Common duct measures: 0.2 cm. Pancreas: Obscured by overlying bowel gas. Right kidney: 10.9 cm in length. Normal parenchymal echotexture and thickness. No hydronephrosis, stone or mass. IMPRESSION: Echogenic liver likely representing hepatic steatosis. Normal gallbladder. Nondiagnostic evaluation of the pancreas. WSN: [id number] Ordering Physician: Nilda Ochoa Dictated By: Rk Rocha MD Dictated Date/Time: 09/26/22 10:43 p Reviewed By: Rk Rocha MD Signed By: Rk Rocha MD Signed Date/Time: 09/26/22 10:43 pm Transcribed By: DAVIS Transcribed Date/Time: 09/26/22 10:41 pm Vital Signs Most recent to oldest [Reference Range]: 1 2 3 Oxygen Saturation [94-100 %] 97 % (09/27/22 12:19 PM) 95 % (09/27/22 7:05 AM) 98 % (09/26/22 9:05 PM) Pulse Rate [55-90 bpm] 91 bpm *H* (09/27/22 12:19 PM) 82 bpm (09/27/22 7:05 AM) 98 bpm *H* (09/26/22 9:05 PM) Blood Pressure [90-138/55-84 mm Hg] 113/84mm Hg (09/27/22 12:19 PM) 125/85mm Hg (09/27/22 9:42 AM) 125/85mm Hg (09/27/22 7:05 AM) Respiratory Rate [16-30 br/min] 20 br/min (09/27/22 12:19 PM) 18 br/min (09/27/22 7:05 AM) 17 br/min (09/26/22 9:05 PM) Temperature [96.8-100.4 DegF] 98.3 DegF (09/27/22 12:19 PM) 97.4 DegF (09/26/22 9:05 PM) Mode of Delivery (Oxygen) Room air (09/27/22 12:19 PM) Room air (09/27/22 7:05 AM) Temperature Route Oral (09/27/22 12:19 PM) Oral (09/26/22 9:05 PM) Social History Social History Type Response Smoking Status 10 or more cigarette s (1/2 pack or more)/day in last 30 days; Other: 1PPD; entered on: 07/19/22 Sex EKG study * Event Display: ECG 12-Lead Authored Date: Please click on pdf link to open report * Event Display: ECG 12-Lead Authored Date: Ventricular Rate: 80 BPM Atrial Rate: 80 BPM P-R Interval: 204 ms QRS Duration: 88 ms Q-T Interval: 402 ms QTC Calculation(Bazett): 463 ms P [place]: 51 degrees R [place]: 32 degrees T [place]: 43 degrees Normal sinus rhythm Normal ECG When compared with ECG of 24-JUL-2022 19:51, No significant change was found Confirmed by MARISABEL ELDRIDGE MD ([id number]) on 09/27/2022 8:17:00 AM [place]: MARISABEL ELDRIDGE MD Note * BHSPowerscribe , CIS S: TRANSCRIBE Rk Rocha MD: VERIFY Event Display: Result: Authored Date: US RUQ Hx of Present Illness: from fdc w AH's, SI; Reason: Other:; Abdominal Pain; Clinical Question(s): Cholecystitis COMPARISON: None. FINDINGS: Liver: Limited evaluation. Mildly echogenic. Hepatopetal flow in the main portal vein. Gallbladder: No gallstones. Normal wall thickness. No pericholecystic fluid. Negative Michael sign. Biliary Tree: No intrahepatic or extrahepatic bile duct dilation is identified. Common duct measures: 0.2 cm. Pancreas: Obscured by overlying bowel gas. Right kidney: 10.9 cm in length. Normal parenchymal echotexture and thickness. No hydronephrosis, stone or mass. IMPRESSION: Echogenic liver likely representing hepatic steatosis. Normal gallbladder. Nondiagnostic evaluation of the pancreas. WSN: [id number] Ordering Physician: Nilda Ochoa Dictated By: Rk Rocha MD Dictated Date/Time: 09/26/22 10:43 p Reviewed By: Rk Rocha MD Signed By: Rk Rocha MD Signed Date/Time: 09/26/22 10:43 pm Transcribed By: DAVIS Transcribed Date/Time: 09/26/22 10:41 pm Patient Care team information Care Team Personnel Name: Rudi Ruiz RN Position: [facility] ED RN W/OE and Tasks Member Role: Primary Care Nurse Name: Alijca Riggs RN Position: [facility] RN Member Role: Primary Care Nurse Name: Ros Fu RN Position: [facility] RN Member Role: Primary Care Nurse Name: Hilda Mccabe RN Position: [facility] RN Member Role: Primary Care Nurse Name: Rosana Kearney RN Position: [facility] AMB Nurse Member Role: Primary Care Nurse Name: Wil lFood RN Position: [facility] RN Member Role: Primary Care Nurse Name: Gagandeep Sheldon RN Position: [facility] RN Member Role: Primary Care Nurse Name: Chip Morton Position: [facility] Outreach Member Role: Lifetime Consulting Physician Name: Alba Daily RN Position: [facility] RN Member Role: Primary Care Nurse Name: Maribel Marquez NP Position: [facility] PCO Associate Professional Member Role: PCP Address: Address: [address] [place] [id number]- Name: Jose Ramirez RN Position: [facility] RN Member Role: Primary Care Nurse Name: Brittany Butts RN Position: [facility] AMB Nurse Member Role: Primary Care Nurse Name: Mary Sánchez RN Position: [facility] RN Member Role: Primary Care Nurse Name: Shama Rosado RN Position: [facility] RN Member Role: Primary Care Nurse Name: Jackie Snyder RN Position: [facility] RN Member Role: Primary Care Nurse Name: Jay Burks NP Position: Reference Physician Member Role: Primary Care Nurse Address: Address: [address] [facility] [address] Clinical [facility] [place] [address]- [place] Name: Parvez Kaba MD Position: [facility] Renal MD Member Role: Lifetime Consulting Physician Address: Address: [address] [place] [address] [facility] [place] [place] [address]- [place] Name: Yoana Ledezma RN Position: [facility] RN Member Role: Primary Care Nurse Name: Mirna Paul RN Position: [facility] OB RN Member Role: Primary Care Nurse Name: Latonya Rahman RN Position: [facility] Onco RN Member Role: Primary Care Nurse Name: Claudia Presley RN Position: [facility] RN Member Role: Primary Care Nurse Name: Iris Villa RN Position: [facility] Hospital Imaging Engineer Member Role: Primary Care Nurse [facility] Attending Position: [facility] ED Attendings Patient Name: Shelly Clayton RN Position: [facility] ED RN W/OE and Tasks Member Role: Patient Care Provider Name: Skylar Carvalho MD Position: [facility] Resident Member Role: Admitting Physician Address: Address: [address] [facility] [place] [address]- [place] Name: Hang Tanner Position: [facility] ED TA [facility] Member Role: Pst Specialist Care Team Related Persons Name: JO-ANN ROMANELEVATOR TECHNICIANINDRA Address: [address] [place] [address] Name: BUDGET CONSULTANTGREGG Address: [address] [place] [address] Name: CARLOS PAZ Address: home [address] [place] [address]
--- OUTSIDE RECORDS SUMMARY | 2023-07-16 14:58 | XMS_ITS | Continuity of Care Document ---
Author Name Unknown Organization [facility] Adult Address [address] [place] [address]- Care Team Providers Care Operator And Truck Driver Name Role Phone Maribel Marquez NP Primary Care Physician [place] [facility] [place]21 [facility] Adult [address] [place] [address]- Allergies, Adverse Reactions, Alerts Substance Reaction Severity [...] 07/22/20 18:41:00 EDT, Route to Pharmacy Electronically, [facility], 163.5, cm, 07/22/20 18:29:00 EDT, Height, [...] 0 Refills, Maintenance, 12/23/20 15:38:00 EST, Aerosol, [facility], 162, cm, 12/23/20 10:43:00 EST, Height, 122.1, kg, 12/21/20 16:25:00 EST, Dry Weight Start Date: 12/23/20 Status: Ordered Haldol Decanoate decanoate 100 mg/ml injectable solution = 100 mg, Intramuscular, Every 28 days, last dose given on 09/17/2020. Next due 10/15/20., # 1 each, 0Refills, Soft Stop, 07/22/20 18:42:00 EDT, Solution, [facility], 163.5, cm, 07/22/20 18:29:00 EDT, Height, 102.5, kg, 07/18/20 21:04:00 EDT,... Start Date: 07/22/20 Status: Ordered lisinopril 5 mg oral tablet 5 mg, 1, tablet, By Mouth, Daily, # 30 tablet, Refills 0, Tot. Refills 0, Maintenance, 02/09/20 10:10:00 EDT, Route to Pharmacy Electronically, [facility], 165, cm, 02/08/20 19:47:00 EDT, Height, [...] 0 Refills, Maintenance, 12/23/20 16:38:00 EST, Tablet, [facility], Partial fill upon patient request if the prescription is for a schedule II opioid drug., 162, cm, 12/23/20 15:59:00 EST... Start Date: 12/23/20 Stop Date: 01/22/21 Status: Ordered montelukast 10 mg oral tablet 10 mg, 1, tablet, By Mouth, Daily, # 30 tablet, Refills 0, Tot. Refills 0, Maintenance, 02/09/20 10:11:00 EDT, Route to Pharmacy Electronically, [facility], 165, cm, 02/08/20 19:47:00 EDT, Height, [...] Refills, Maintenance, 04/11/21 9:22:00 EDT, REC Powder, [facility], Partial fill upon patient request if the prescription is for a schedule II opioid dr... Start Date: 04/11/21 Stop Date: 07/10/21 Status: [...] 0 Refills, Maintenance, 02/09/20 10:05:00 EDT, Inhaler, [facility], 165, cm, 02/08/20 19:47:00 EDT, Height, 104.5, kg, 02/07/20 8:15:00 EDT, Dry Weight Start Date: 02/09/20 Stop Date: 03/10/20 Status: Ordered verapamil 240 mg/12 hours oral tablet, extended release 1 tablet = 240 mg, By Mouth, Daily at bedtime, # 30 tablet, 0 Refills, Maintenance, 02/09/20 10:14:00 EDT, SR Tablet, [facility], 165, cm, 02/08/20 19:47:00 EDT, Height, [...]
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
[2023-07-16 16:48] LABS: Glucose, Whole Blood 95 mg/dL (60-115)
[2023-07-16 18:00] VITALS: BP 135/73; PULSE 83; TEMP 36.8; O2SAT 98
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
[2023-07-16] MEDS: metFORMIN HCl 500 MG TABLET PO (19:26)
[2023-07-16] MEDS: fluPHENAZine HCl 5 MG TABLET PO (21:51)
[2023-07-16] MEDS: Prazosin HCL 1 MG CAPSULE 4 MG PO (21:51)
[2023-07-16] MEDS: traZODone HCL 50 MG TABLET 150 MG PO (21:51)
[2023-07-16] MEDS: Benztropine Mesylate 1 MG TABLET PO (21:51)
[2023-07-16] MEDS: Albuterol Sulfate 90 MCG 8 GM INHALER 2 PUFF INHALE (22:02)
[2023-07-16 22:25] LABS: Glucose, Whole Blood 112 mg/dL (60-115)
[2023-07-17 08:48] LABS: Glucose, Whole Blood 90 mg/dL (60-115)
[2023-07-17 08:53] VITALS: BP 139/102; PULSE 77; RESP 18; TEMP 36.8; O2SAT 95
[2023-07-17] MEDS: Atorvastatin Calcium 10 MG TABLET PO (09:18)
[2023-07-17] MEDS: Lithium Carbonate 300 MG CAPSULE PO (09:18)
[2023-07-17] MEDS: FLUoxetine HCl 20 MG CAPSULE 80 MG PO (09:18)
[2023-07-17] MEDS: Mirtazapine 7.5 MG TABLET PO (09:19)
[2023-07-17] MEDS: metFORMIN HCl 500 MG TABLET PO ×2 (09:19→17:32)
[2023-07-17] MEDS: lisinopriL 5 MG TABLET PO (09:19)
[2023-07-17] MEDS: Benztropine Mesylate 1 MG TABLET PO ×2 (09:19→20:33)
[2023-07-17] MEDS: fluPHENAZine HCl 5 MG TABLET PO ×2 (09:19→20:33)
[2023-07-17] MEDS: Montelukast Sodium 10 MG TABLET PO (09:19)
[2023-07-17] MEDS: Omeprazole 20 MG CAPSULE.DR PO (09:19)
[2023-07-17] MEDS: Nicotine 14 MG PATCH.TD24 TRANSDERMA (09:20)
[2023-07-17 09:27] LABS: Cholesterol 202 mg/dL (<200); Estimated Glomerular Filt Rate > 60; HDL Cholesterol 36 mg/dL (>40); LDL Cholesterol Calculated 106 mg/dL (<100); Triglycerides 301 mg/dL (<150)
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
[2023-07-17 12:19] LABS: Glucose, Whole Blood 89 mg/dL (60-115)
[2023-07-17 17:27] LABS: Glucose, Whole Blood 94 mg/dL (60-115)
[2023-07-17 20:25] VITALS: BP 119/66; PULSE 76; TEMP 36.3; O2SAT 98
[2023-07-17] MEDS: Prazosin HCL 1 MG CAPSULE 4 MG PO (20:33)
[2023-07-17] MEDS: traZODone HCL 50 MG TABLET 150 MG PO (20:33)
[2023-07-17 20:55] LABS: Glucose, Whole Blood 89 mg/dL (60-115)
[2023-07-18 08:09] LABS: Glucose, Whole Blood 89 mg/dL (60-115)
[2023-07-18] MEDS: Mirtazapine 7.5 MG TABLET PO (08:20)
[2023-07-18] MEDS: lisinopriL 5 MG TABLET PO (08:20)
[2023-07-18] MEDS: Lithium Carbonate 300 MG CAPSULE PO (08:20)
[2023-07-18] MEDS: Atorvastatin Calcium 10 MG TABLET PO (08:20)
[2023-07-18] MEDS: fluPHENAZine HCl 5 MG TABLET PO ×2 (08:20→21:17)
[2023-07-18] MEDS: FLUoxetine HCl 20 MG CAPSULE 80 MG PO (08:20)
[2023-07-18] MEDS: Benztropine Mesylate 1 MG TABLET PO ×2 (08:20→21:18)
[2023-07-18] MEDS: metFORMIN HCl 500 MG TABLET PO ×2 (08:20→16:45)
[2023-07-18] MEDS: Omeprazole 20 MG CAPSULE.DR PO (08:20)
[2023-07-18] MEDS: Montelukast Sodium 10 MG TABLET PO (08:20)
[2023-07-18] MEDS: Nicotine 14 MG PATCH.TD24 TRANSDERMA (08:21)
[2023-07-18 08:30] VITALS: BP 115/77; PULSE 79; RESP 18; TEMP 36.3; O2SAT 93
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
[2023-07-18] MEDS: LORazepam 0.5 MG TABLET PO (14:31)
[2023-07-18 21:10] VITALS: BP 124/60; PULSE 67; TEMP 37; O2SAT 97
[2023-07-18] MEDS: traZODone HCL 50 MG TABLET 150 MG PO (21:16)
[2023-07-18] MEDS: Prazosin HCL 1 MG CAPSULE 4 MG PO (21:16)
[2023-07-18] MEDS: hydrOXYzine HCL 25 MG TABLET PO (21:17)
[2023-07-18] MEDS: Docusate Sodium 100 MG CAPSULE PO (21:18)
[2023-07-19] MEDS: Omeprazole 20 MG CAPSULE.DR PO (06:27)
[2023-07-19 08:07] VITALS: BP 110/69; PULSE 93; RESP 16; TEMP 36.8; O2SAT 95
[2023-07-19] MEDS: LORazepam 0.5 MG TABLET PO (09:03)
[2023-07-19] MEDS: lisinopriL 5 MG TABLET PO (09:03)
[2023-07-19] MEDS: fluPHENAZine HCl 5 MG TABLET PO (09:03)
[2023-07-19] MEDS: Atorvastatin Calcium 10 MG TABLET PO (09:04)
[2023-07-19] MEDS: Mirtazapine 7.5 MG TABLET PO (09:04)
[2023-07-19] MEDS: Benztropine Mesylate 1 MG TABLET PO (09:04)
[2023-07-19] MEDS: Montelukast Sodium 10 MG TABLET PO (09:04)
[2023-07-19] MEDS: FLUoxetine HCl 20 MG CAPSULE 80 MG PO (09:04)
[2023-07-19] MEDS: metFORMIN HCl 500 MG TABLET PO (09:04)
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
== END 2023-07-19 11:09 | disposition home or self-care (01) | DRG 885 ==
PROVIDERS: Admitting Provider Clinical Nurse Specialist Psychiatric/Mental Health, Adult; PCP Nurse Practitioner Family; Visit Provider Psychiatry & Neurology Psychiatry
DX: F33.2 Major depressive disorder, recurrent severe without psychotic features (principal); F60.3 Borderline personality disorder; E78.5 Hyperlipidemia, unspecified; F43.12 Post-traumatic stress disorder, chronic; E11.9 Type 2 diabetes mellitus without complications; F17.210 Nicotine dependence, cigarettes, uncomplicated; Z91.51 Personal history of suicidal behavior; Z71.6 Tobacco abuse counseling; Z79.84 Long term (current) use of oral hypoglycemic drugs; Z79.899 Other long term (current) drug therapy
CPT/HCPCS: 36415; 80061; 82565; 82947

== ENCOUNTER → 2023-07-16 14:35 | Outpatient (BNV) | payer MEDICARE, MEDICAID, SELFPAY | PROVIDERS: Admitting Provider Clinical Nurse Specialist Psychiatric/Mental Health, Adult; PCP Nurse Practitioner Family; Visit Provider Psychiatry & Neurology Psychiatry | DX: F60.3 Borderline personality disorder (principal); F33.3 Major depressive disorder, recurrent, severe with psychotic symptoms; F43.11 Post-traumatic stress disorder, acute; E78.5 Hyperlipidemia, unspecified; E11.9 Type 2 diabetes mellitus without complications | CPT/HCPCS: 99222; 99231; 99238 ==

== ENCOUNTER 2023-07-19 23:44 | Emergency (ER) | payer MEDICARE, MEDICAID, SELFPAY ==
[2023-07-19 23:53] VITALS: BP 133/88; PULSE 110; RESP 15; TEMP 36.4; O2SAT 96; BMI 39.1
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
[2023-07-20 00:45] LABS: Alanine Aminotransferase 16 U/L (0-31); Albumin Level 4.5 g/dL (3.5-5.0); Alkaline Phosphatase 108 U/L (39-117); Anion Gap 20 (12-20); Aspartate Amino Transferase 19 U/L (5-31); Bilirubin Total 0.2 mg/dL (0.0-1.0); Blood Urea Nitrogen 16 mg/dL (9-16); Calcium 9.7 mg/dL (8.4-10.2); Carbon Dioxide 20 mmol/L (22-29); Chloride 104 mmol/L (96-108); Creatinine Clr Calc Pharmacy 107.7; Estimated Glomerular Filt Rate > 60; Glucose Random 144 mg/dL (60-115); Potassium 3.5 mmol/L (3.3-5.1); Sodium 140 mmol/L (135-145); Total Protein 7.6 g/dL (6.5-8.0)
--- NOTE | 2023-07-20 05:48 | PC.NURSE ---
Patient slept through the night, no distress observed/reported, behavior non concerning at baseline, no injuries observed, med rec completed/pending provider's approval, labs completed/resulted, care consult ordered/pending evaluation, VSS, will continue to monitor,
--- NOTE | 2023-07-20 07:25 | PC.NURSE ---
patient awake at present, requesting meds but patient, pleasant in interactions w this lead technical writer awaits care team assessment.
[2023-07-20 10:54] VITALS: BP 150/88; PULSE 75; RESP 16; TEMP 36.6; O2SAT 96
== END 2023-07-20 12:12 | disposition home or self-care (01) ==
PROVIDERS: Emergency Provider Emergency Medicine
DX: F41.9 Anxiety disorder, unspecified (principal); R45.851 Suicidal ideations; N39.0 Urinary tract infection, site not specified; F31.9 Bipolar disorder, unspecified; F60.3 Borderline personality disorder; F43.12 Post-traumatic stress disorder, chronic; E11.9 Type 2 diabetes mellitus without complications; E78.5 Hyperlipidemia, unspecified; D64.9 Anemia, unspecified; K21.9 Gastro-esophageal reflux disease without esophagitis; F17.210 Nicotine dependence, cigarettes, uncomplicated; F12.90 Cannabis use, unspecified, uncomplicated; E66.9 Obesity, unspecified; Z68.39 Body mass index [BMI] 39.0-39.9, adult; Z91.51 Personal history of suicidal behavior; Z91.52 Personal history of nonsuicidal self-harm; Z79.899 Other long term (current) drug therapy; Z79.84 Long term (current) use of oral hypoglycemic drugs
CPT/HCPCS: 36415; 80053; 80143; 80179; 80307; 81001; 85025; 99284; S9485

== ENCOUNTER 2023-07-21 12:28 | Emergency (ER) | payer MEDICARE, MEDICAID, SELFPAY ==
[2023-07-21 12:39] VITALS: BP 110/60; BP 139/82; PULSE 80; PULSE 89; RESP 16; TEMP 36.7; O2SAT 98; BMI 37.7
--- NOTE | 2023-07-21 13:12 | PC.NURSE ---
arrived with C-collar on, applied by ems. witnessed fall off lawn chair, felt dizzy prior to fall, hit L hip and back of head, swelling on left back of head. reports 10/10 pain. vss.
[2023-07-21 14:58] VITALS: BP 124/72; PULSE 73; RESP 18; O2SAT 95
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
== END 2023-07-21 17:42 | disposition home or self-care (01) ==
PROVIDERS: Emergency Provider Emergency Medicine; PCP Nurse Practitioner Family
DX: M25.552 Pain in left hip (principal); R51.9 Headache, unspecified; Z91.81 History of falling; E11.9 Type 2 diabetes mellitus without complications; E78.5 Hyperlipidemia, unspecified; F12.90 Cannabis use, unspecified, uncomplicated; E66.9 Obesity, unspecified; Z68.37 Body mass index [BMI] 37.0-37.9, adult; Z79.84 Long term (current) use of oral hypoglycemic drugs; Z79.899 Other long term (current) drug therapy; F17.210 Nicotine dependence, cigarettes, uncomplicated
CPT/HCPCS: 70450; 72125; 73502; 82947; 99283; 99284

== ENCOUNTER 2023-07-22 20:31 | Emergency (ER) | payer MEDICARE, MEDICAID, SELFPAY ==
[2023-07-22 20:44] VITALS: BP 121/51; PULSE 85; RESP 20; TEMP 37; O2SAT 95; BMI 25.7
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
--- NOTE | 2023-07-22 21:00 | ED.PSYCH ---
HPI - Psych General Chief Complaint: Psychiatric Symptoms Stated Complaint: Pt. hearing voices telling her to harm herself. Time Seen by Provider: 07/22/23 20:59 Source: patient Mode of arrival: ambulatory Limitations: no limitations History of Present Illness HPI Narrative: Patient with history of PTSD bipolar disorder borderline personality disorder depression been here multiple times for different reasons today she comes as she heard the news that her stepsister in the accident 2 days ago it is [place] [address] patient does not know her sister's last name and does not have any contact number of her who called her. Feels very upset have thought of self-harm but currently feels okay denies SI at this time but very upset Related Data Home Medications Medication Instructions Recorded Confirmed lisinopril 5 mg tablet 5 mg PO DAILY 04/12/23 07/22/23 metformin 500 mg tablet 500 mg PO BID 04/12/23 07/22/23 mirtazapine 15 mg tablet 7.5 mg PO DAILY 04/12/23 07/22/23 montelukast 10 mg tablet 10 mg PO DAILY 04/12/23 07/22/23 pantoprazole 40 mg tablet,delayed 40 mg PO DAILY 04/12/23 07/22/23 release fluphenazine HCl 5 mg tablet 5 mg PO BID 05/09/23 07/22/23 prazosin 2 mg capsule 4 mg PO BEDTIME 05/28/23 07/22/23 albuterol sulfate 90 mcg/actuation 2 puff inhalation QID PRN 06/15/23 07/22/23 aerosol inhaler (Ventolin HFA) Shortness Of Breath Or Wheezing atorvastatin 10 mg tablet 10 mg PO DAILY 06/15/23 07/22/23 benztropine 1 mg tablet 1 mg PO BID 06/15/23 07/22/23 fluoxetine 40 mg capsule 80 mg PO QAM 06/15/23 07/22/23 trazodone 150 mg tablet 150 mg PO BEDTIME 06/15/23 07/22/23 lorazepam 0.5 mg tablet 0.5 mg PO DAILY PRN Anxiety 07/15/23 07/22/23 naproxen sodium 220 mg tablet 220 mg PO BID PRN Pain 07/15/23 07/22/23 Previous Rx's Medication Instructions Recorded cefuroxime axetil 250 mg tablet 250 mg PO BID 10 days #20 tabs 07/23/23 nitrofurantoin 100 mg PO BID #20 caps 07/23/23 monohydrate/macrocrystals 100 mg capsule (Macrobid) Allergies Allergy/AdvReac Type Severity Reaction Status Date / Time azithromycin [AZITHROMYCIN] Allergy Severe Rash Verified 07/21/23 12:54 Fish Containing Products Allergy Severe Anaphylaxis Verified 07/21/23 12:54 codeine [Codeine] Allergy Intermediate Rash Verified 07/21/23 12:54 Penicillins Allergy Intermediate Rash Verified 07/21/23 12:54 prednisone [Prednisone] Allergy Intermediate Rash Verified 07/21/23 12:54 Sulfa (Sulfonamide Allergy Intermediate Rash Verified 07/21/23 12:54 Antibiotics) [Sulfa (Sulfonamides)] ziprasidone [From Geodon] Allergy Intermediate dysuria, Verified 07/21/23 12:54 rash Review of Systems Review of Systems: Yes all other systems are reviewed and are negative PMFSH Past Medical History Medical History Chest pain Acute anxiety COVID-19 Full body hives Major depression Dizziness Suicide attempt UTI (urinary tract infection) Acetaminophen overdose COVID History of attempted suicide History of non-suicidal self-harm Hypomagnesemia Suicide attempt Suicide attempt by acetaminophen overdose Acetaminophen overdose Depression MDD (major depressive disorder), recurrent episode, severe Diabetes type 2, controlled Borderline personality disorder PTSD (post-traumatic stress disorder) Overdose GERD (gastroesophageal reflux disease) Mood disorder Hyperlipidemia Bronchitis Social History Social History Household Members: Other Household Members Other:: [facility]pc Housing: Assisted Living Facility Housing Other:: [facility] Do you presently have visiting nurse or other home services: No Unable to assess alcohol history related to: Unknown Alcohol intake: current Alcohol intake frequency: does not drink Patient Tobacco Use Status: Current everyday Tobacco user Tobacco use type: Cigarette Cigarette Packs Per Day: 1 Cigarettes Per Day: 20.0 Years Smoked: 22 Smoked in Last 30 Days: Yes e-Cigarette/Vaping Use: Never Used Second Hand Smoke Exposure: Yes Use of substances other than those prescribed or required for medical reasons: No Substance Use Type: Marijuana Advance Directives: No Advance Directives Information Provided: No Patient : No service: No Current occupational status: unemployed and disabled Sexual orientation: Straight/Heterosexual Physical Exam Vital Signs: Vital Signs: Last Vital Signs Temp 98.6 F 07/22/23 20:44 Pulse 85 07/22/23 20:44 Resp 20 07/22/23 20:44 BP 121/51 L 07/22/23 20:44 Pulse Ox 95 07/22/23 20:44 O2 Del Method Room Air 07/22/23 20:44 BMI result Body Mass Index 25.7 Appearance: Alert. Oriented X3. No acute distress. Eyes: PERRLA, No Nystagmus ENT: Pharynx normal. Oral Mucosa moist Neck: Normal inspection. Neck supple. CVS: Normal heart rate and rhythm. Pulses normal. Respiratory: No respiratory distress. Equal air entry bilateral, no wheezing/rales/rhonchi Abdomen: Soft and nontender. Bowel sounds are present, no mass palpable, no CVA tenderness Skin: Skin warm and dry. Normal skin color. Normal skin turgor. Extremities: No lower extremity edema. No calf tenderness psych; mood stable denies SI or HI no delusions or hallucinations at this time Neuro: Oriented X 3. No motor deficit. No sensory deficit.No cerebellar signs , cranial nerves II-XII intact Medications Administered Discontinued Medications Generic Name Dose Route Start Last Admin Trade Name Freq PRN Reason Stop Dose Admin Cefuroxime Axetil 250 mg 07/22/23 23:08 07/22/23 23:35 Cefuroxime Axetil 250 Mg Tablet PO 07/22/23 23:09 250 mg ONCE ONE Administration Nitrofurantoin Macrocrystals 100 mg 07/22/23 23:08 07/22/23 23:35 Nitrofurantoin Monohyd/M-Cryst 100 Mg Capsule PO 07/22/23 23:09 100 mg ONCE ONE Administration Medical Decision Making Medical Decision Making [facility] Narrative: Patient with frequent ED visits today patient been upset as her step sister ???will watch her overnight re-evaluate in the morning if she feels stable will discharge her back to her home patient does complain of frequency and dysuria for last 2 weeks no fever no vomiting no flank pain no urine culture was done patient was started on Macrobid but she did not take it will prescribe her Macrobid and Ceftin recheck the urine culture at this time re-evaluate in a.m. Lab Data [facility] Lab Attestation statement: I reviewed the patient's lab results. Labs: Lab Results 07/22/23 07/22/23 Range/Units 22:22 22:35 Hold Green Top See Note Urine Color Yellow Urine Appearance Cloudy Urine pH 6.0 (5.0-9.0) Ur Specific Hope 1.010 (1.005-1.025) Urine Protein Negative (Neg-Trace) mg/dL Urine Glucose (UA) Negative (Negative) mg/dL Urine Ketones Negative (Negative) mg/dL Urine Blood Negative (Negative) Urine Nitrite Positive H (Negative) Ur Leukocyte Esterase Large (3+) H (Negative) Urine RBC 0-2 (0-2) /HPF Urine WBC >50 H (0-5) /HPF Ur Squamous Epith Cells 0-2 (0-2) /HPF Urine Bacteria 4+ (None Seen) Hyaline Casts 0-2 (0-2) /LPF Urine Opiates Screen Not Detected (Not Detect) Urine Fentanyl Screen Not Detected (Not Detect) Ur Barbiturates Screen Not Detected (Not Detect) Ur Phencyclidine Scrn Not Detected (Not Detect) Ur Amphetamines Screen Not Detected (Not Detect) U Benzodiazepines Scrn Not Detected (Not Detect) Urine Cocaine Screen Not Detected (Not Detect) U Marijuana (THC) Screen Not Detected (Not Detect) Ethyl Alcohol < 10 mg/dL Discharge Plan Discharge Clinical Impression: PTSD (post-traumatic stress disorder), Depression, UTI (urinary tract infection) Patient Disposition: Still a Patient Instructions: Urinary Tract Infection in Women (DC), Depression (ED), Post Traumatic Stress Disorder (ED) Additional Instructions: Take antibiotics as advised for UTI Continue rest of your medication Prescriptions: New nitrofurantoin monohyd/m-cryst [Macrobid] 100 mg capsule 100 mg PO BID Qty: 20 0RF Rx Instructions: must administer with a meal/food cefuroxime axetil 250 mg tablet 250 mg PO BID 10 Days Qty: 20 0RF No Action metformin 500 mg tablet 500 mg PO BID pantoprazole 40 mg tablet,delayed release (DR/EC) 40 mg PO DAILY montelukast 10 mg tablet 10 mg PO DAILY lisinopril 5 mg tablet 5 mg PO DAILY mirtazapine 15 mg tablet 7.5 mg PO DAILY fluoxetine 40 mg capsule 80 mg PO QAM atorvastatin 10 mg tablet 10 mg PO DAILY trazodone 150 mg tablet 150 mg PO BEDTIME benztropine 1 mg tablet 1 mg PO BID albuterol sulfate [Ventolin HFA] 90 mcg/actuation HFA aerosol inhaler 2 puff inhalation QID PRN (Reason: Shortness Of Breath Or Wheezing) fluphenazine HCl 5 mg tablet 5 mg PO BID prazosin 2 mg capsule 4 mg PO BEDTIME lorazepam 0.5 mg tablet 0.5 mg PO DAILY PRN (Reason: Anxiety) naproxen sodium 220 mg Tablet 220 mg PO BID PRN (Reason: Pain) Interventions: [place]-Suicide Risk Severity Scale Last Done: 07/22/23 20:54
--- NOTE | 2023-07-22 22:03 | MHC.CARE ---
CARE team clinician checked in with pt on arrival to the ED. Pt reported that her adoptive sister in a car accident two days ago and it's finally hitting her. She reported that she has been hearing voices and got into an argument with another resident at the retirement and told all the housemates to fuck off. Pt is passively suicidal at baseline and is currently presenting at that baseline. She was briefly tearful and then expressed that she wants to be with her sister because she was the only family that she had left. Pt did not endorse any suicidal ideation or urge to self harm and denied any self harm or suicide attempts prior to arrival to the hospital. Pt reported that she doesn't feel safe going back to her retirement tonight because of the voices and she would feel better returning in the morning. This life insurance underwriter spoke with ED attending physician who is in agreement with plan for D/C in the morning.
[2023-07-23 02:35] VITALS: BP 130/91; PULSE 74; RESP 16; TEMP 36.7; O2SAT 97
--- NOTE | 2023-07-23 06:53 | PC.NURSE ---
Patient slept through the night, no distress observed/reported, disposition per care team is current provider, med rec completed/pending provider's approval, VSS, behavior non concerning, will continue to monitor.
== END 2023-07-23 09:42 | disposition home or self-care (01) ==
PROVIDERS: Emergency Provider Internal Medicine
DX: F33.1 Major depressive disorder, recurrent, moderate (principal); F43.10 Post-traumatic stress disorder, unspecified; N39.0 Urinary tract infection, site not specified; F17.210 Nicotine dependence, cigarettes, uncomplicated; Z71.6 Tobacco abuse counseling; Z79.899 Other long term (current) drug therapy
CPT/HCPCS: 36415; 80307; 81001; 87086; 87088; 87186; 99284

== ENCOUNTER 2023-07-27 17:52 | Emergency (ER) | payer MEDICARE, MEDICAID, SELFPAY ==
--- NOTE | 2023-07-27 18:13 | ED_ITS ---
HPI - Psych General Chief Complaint: Psychiatric Symptoms Stated Complaint: Crisis. Patient is hearing voices, per ems Time Seen by Provider: 07/27/23 18:12 Source: patient, EMS, RN notes reviewed and old records reviewed Mode of arrival: EMS History of Present Illness HPI Narrative: 47-year-old female with a past medical history of depression, prior suicide attempts, diabetes, borderline personality disorder, PTSD, anxiety, GERD, mood disorder, HLD, presenting to the ED via EMS complaining of increasing depression with suicidal ideations with plan to overdose. Patient admits her sister over the weekend exacerbating her symptoms. Admits to self-harm thoughts however denies any attempt. Reports auditory and visual hallucinations. Reports compliance with prescribed medications. Denies EtOH or illicit substance use. MD complaint: suicidal ideation and feels depressed Related Data Home Medications Medication Instructions Recorded Confirmed lisinopril 5 mg tablet 5 mg PO DAILY 04/12/23 07/22/23 metformin 500 mg tablet 500 mg PO BID 04/12/23 07/22/23 mirtazapine 15 mg tablet 7.5 mg PO DAILY 04/12/23 07/22/23 montelukast 10 mg tablet 10 mg PO DAILY 04/12/23 07/22/23 pantoprazole 40 mg tablet,delayed 40 mg PO DAILY 04/12/23 07/22/23 release fluphenazine HCl 5 mg tablet 5 mg PO BID 05/09/23 07/22/23 prazosin 2 mg capsule 4 mg PO BEDTIME 05/28/23 07/22/23 albuterol sulfate 90 mcg/actuation 2 puff inhalation QID PRN 06/15/23 07/22/23 aerosol inhaler (Ventolin HFA) Shortness Of Breath Or Wheezing atorvastatin 10 mg tablet 10 mg PO DAILY 06/15/23 07/22/23 benztropine 1 mg tablet 1 mg PO BID 06/15/23 07/22/23 fluoxetine 40 mg capsule 80 mg PO QAM 06/15/23 07/22/23 trazodone 150 mg tablet 150 mg PO BEDTIME 06/15/23 07/22/23 lorazepam 0.5 mg tablet 0.5 mg PO DAILY PRN Anxiety 07/15/23 07/22/23 naproxen sodium 220 mg tablet 220 mg PO BID PRN Pain 07/15/23 07/22/23 Previous Rx's Medication Instructions Recorded cefuroxime axetil 250 mg tablet 250 mg PO BID 10 days #20 tabs 07/23/23 nitrofurantoin 100 mg PO BID #20 caps 07/23/23 monohydrate/macrocrystals 100 mg capsule (Macrobid) Allergies Allergy/AdvReac Type Severity Reaction Status Date / Time azithromycin [AZITHROMYCIN] Allergy Severe Rash Verified 07/21/23 12:54 Fish Containing Products Allergy Severe Anaphylaxis Verified 07/21/23 12:54 codeine [Codeine] Allergy Intermediate Rash Verified 07/21/23 12:54 Penicillins Allergy Intermediate Rash Verified 07/21/23 12:54 prednisone [Prednisone] Allergy Intermediate Rash Verified 07/21/23 12:54 Sulfa (Sulfonamide Allergy Intermediate Rash Verified 07/21/23 12:54 Antibiotics) [Sulfa (Sulfonamides)] ziprasidone [From Geodon] Allergy Intermediate dysuria, Verified 07/21/23 12:54 rash Review of Systems Review of Systems: Constitutional: No Fever, No Chills, No Fatigue, No Malaise ENT/Mouth: No Ear Pain, No sore throat, No Rhinorrhea, No Swallowing Difficulty Eyes: No Eye Pain, No Swelling, No Redness, No Vision Changes Cardiovascular: No Chest Pain, No SOB Respiratory: No Cough, No Sputum, No Dyspnea Gastrointestinal: No Nausea, No Vomiting, No Diarrhea, No Constipation, No Abdo judy pain Musculoskeletal: No joint pain, No Myalgias, No Joint Swelling Skin: No Skin Lesions, No rash Neuro: No Weakness, No Numbness, No Paresthesias, No Loss of Consciousness, No Dizziness, No Headache Psych: + Anxiety/Panic, +Depression, +SI, No HI, +AH/VH, + Social Issues Yes all other systems are reviewed and are negative Constitutional: Constitutional: Reports as per [facility] Past Medical History Attestation statement: The following information was validated with the patient. Source: old records reviewed Medical History Chest pain Acute anxiety COVID-19 Full body hives Major depression Dizziness Suicide attempt UTI (urinary tract infection) Acetaminophen overdose COVID History of attempted suicide History of non-suicidal self-harm Hypomagnesemia Suicide attempt Suicide attempt by acetaminophen overdose Acetaminophen overdose Depression MDD (major depressive disorder), recurrent episode, severe Diabetes type 2, controlled Borderline personality disorder PTSD (post-traumatic stress disorder) Overdose GERD (gastroesophageal reflux disease) Mood disorder Hyperlipidemia Bronchitis Social History Social History Household Members: Other Household Members Other:: longterm Housing: Assisted Living Facility Housing Other:: longterm Do you presently have visiting nurse or other home services: No Unable to assess alcohol history related to: Unknown Alcohol intake: current Alcohol intake frequency: does not drink Patient Tobacco Use Status: Current everyday Tobacco user Tobacco use type: Cigarette Cigarette Packs Per Day: 1 Cigarettes Per Day: 20.0 Years Smoked: 22 e-Cigarette/Vaping Use: Never Used Second Hand Smoke Exposure: Yes Substance Use Type: Marijuana Advance Directives: No Advance Directives Information Provided: No service: No Current occupational status: unemployed and disabled Sexual orientation: Straight/Heterosexual Physical Exam Vital Signs: Vital Signs: Last Vital Signs Temp 98.3 F 07/27/23 18:27 Pulse 90 07/27/23 18:27 Resp 16 07/27/23 18:27 BP 139/90 H 07/27/23 18:27 Pulse Ox 98 07/27/23 18:27 O2 Del Method Room Air 07/27/23 18:27 BMI result Body Mass Index 38.3 Const: General: cooperative, no acute distress, alert and awake Orientation/consciousness: patient oriented x3 Limitations: no limitations HEENT: Head: Yes normal to inspection and Yes atraumatic Ears: hearing grossly normal bilaterally General nose exam: Normal external nose present Face and sinus: Yes normal facial exam Eyes: General: appearance normal, both eyes and all related structures EOM: EOMs intact bilaterally Neck: Neck: Yes normal visual inspection and Yes no meningeal signs Resp: Effort & Inspection: normal respiratory effort and no respiratory distress Cardio: Rate: regular rate Skin: Rashes: no rashes Wounds: no wounds Neuro: General: patient oriented x3, gait normal, tone normal, moves all extremities, no meningeal signs and CN's II-XI intact bilaterally Cranial nerves: Yes CN's II-XII intact bilaterally Gait exam (Neuro): Normal gait present Extrem: General: Yes normal to inspection Psych: Attitude: cooperative Thought content: Suicidality present, no homicidality, Hallucination(s) present auditory and visual and Depressive thoughts present Course Course Course Narrative: - CARE team cleared patient for discharge Results discussed with patient including worrisome signs and symptoms and strict return precautions, and when to return to the emergency department. They verbalized understanding and feel safe for discharge at this time. Medications Administered Discontinued Medications Generic Name Dose Route Start Last Admin Trade Name Elmer PRN Reason Stop Dose Admin Lorazepam 0.5 mg 07/27/23 18:21 07/27/23 18:46 Lorazepam 0.5 Mg Tablet PO 07/27/23 18:22 0.5 mg ONCE ONE Administration Medical Decision Making Medical Decision Making MDM Narrative: 47-year-old female with a past medical history of depression, prior suicide attempts, diabetes, borderline personality disorder, PTSD, anxiety, GERD, mood disorder, HLD, presenting to the ED via EMS complaining of increasing depression with suicidal ideations with plan to overdose. On exam vital signs stable, NAD, nontoxic appearing, suicidal with plan, + auditory and visual hallucinations. Reports compliance with medications. Concern for increasing anxiety/depression and mood disorder. Low suspicion for substance use or organic causes Plan: Drug screen, CARE consult, PO Ativan Please refer to course for remaining clinical decision making, interpretation of labs/imaging results, and discussions with consultants and/or family members. Differential Diagnosis Differential Diagnoses: The differential diagnosis associated with the presentation includes As above Admission/Observation Consideration of admission/observation: Escalation of care including admission/observation considered Consult Healthcare Provider Management of the patient was discussed with: Behavioral Health Provider Lab Data Labs: Lab Results 07/27/23 Range/Units 18:39 Urine Opiates Screen Not Detected (Not Detect) Urine Fentanyl Screen Not Detected (Not Detect) Ur Barbiturates Screen Not Detected (Not Detect) Ur Phencyclidine Scrn Not Detected (Not Detect) Ur Amphetamines Screen Not Detected (Not Detect) U Benzodiazepines Scrn Not Detected (Not Detect) Urine Cocaine Screen Not Detected (Not Detect) U Marijuana (THC) Screen Not Detected (Not Detect) Independent Historian Clinical information obtained from an independent historian. History obtained from or confirmed by: EMS External Record Review External record reviewed: Inpatient record, Office record, Outpatient record, Prior outpatient labs, Prior outpatient radiology, Primary care record and Outside ED record Tests considered The following testing was considered but not selected: As above Chronic Conditions Patient?s care impacted by: Other (Mood disorder) Social Determinants Patient?s care significantly limited by Social Determinants of Health including: Low income, Problems related to primary support group, Problems related to employment and Other Social Determinant of Health Discharge Plan Discharge Clinical Impression: PTSD (post-traumatic stress disorder) Patient Disposition: Home, Self-Care Instructions: Post Traumatic Stress Disorder (ED) Additional Instructions: Continue taking medication and follow with therapist Prescriptions: No Action metformin 500 mg tablet 500 mg PO BID pantoprazole 40 mg tablet,delayed release (DR/EC) 40 mg PO DAILY montelukast 10 mg tablet 10 mg PO DAILY lisinopril 5 mg tablet 5 mg PO DAILY mirtazapine 15 mg tablet 7.5 mg PO DAILY fluoxetine 40 mg capsule 80 mg PO QAM atorvastatin 10 mg tablet 10 mg PO DAILY trazodone 150 mg tablet 150 mg PO BEDTIME benztropine 1 mg tablet 1 mg PO BID albuterol sulfate [Ventolin HFA] 90 mcg/actuation HFA aerosol inhaler 2 puff inhalation QID PRN (Reason: Shortness Of Breath Or Wheezing) nitrofurantoin monohyd/m-cryst [Macrobid] 100 mg capsule 100 mg PO BID Qty: 20 0RF Rx Instructions: must administer with a meal/food cefuroxime axetil 250 mg tablet 250 mg PO BID 10 Days Qty: 20 0RF fluphenazine HCl 5 mg tablet 5 mg PO BID prazosin 2 mg capsule 4 mg PO BEDTIME lorazepam 0.5 mg tablet 0.5 mg PO DAILY PRN (Reason: Anxiety) naproxen sodium 220 mg Tablet 220 mg PO BID PRN (Reason: Pain) Interventions: [place]-Suicide Risk Severity Scale Last Done: 07/27/23 21:34
[2023-07-27 18:27] VITALS: BP 139/90; PULSE 78; PULSE 90; RESP 16; TEMP 36.8; O2SAT 98; BMI 38.3
[2023-07-27] MEDS: LORazepam 0.5 MG TABLET PO (18:46)
[2023-07-27 18:54] LABS: Amphetamine Screen Urine Not Detected (Not Detect); Barbiturates, Urine Not Detected (Not Detect); Benzodiazepines Screen Urine Not Detected (Not Detect); Cannabinoid Screen Urine Not Detected (Not Detect); Cocaine Screen Urine Not Detected (Not Detect); Fentanyl, urine Not Detected (Not Detect); Opiate Screen Urine Not Detected (Not Detect); Phencyclidine Screen Urine Not Detected (Not Detect)
== END 2023-07-27 21:50 | disposition home or self-care (01) ==
PROVIDERS: Physician Assistant; Emergency Provider Emergency Medicine; PCP Nurse Practitioner Family
DX: F43.10 Post-traumatic stress disorder, unspecified (principal); R45.851 Suicidal ideations; F32.A Depression, unspecified; F60.3 Borderline personality disorder; F41.9 Anxiety disorder, unspecified; Z91.51 Personal history of suicidal behavior; Z91.52 Personal history of nonsuicidal self-harm; E11.9 Type 2 diabetes mellitus without complications; E78.5 Hyperlipidemia, unspecified; K21.9 Gastro-esophageal reflux disease without esophagitis; F17.210 Nicotine dependence, cigarettes, uncomplicated; Z79.899 Other long term (current) drug therapy; Z79.84 Long term (current) use of oral hypoglycemic drugs
CPT/HCPCS: 80307; 99283; 99285; S9485

== ENCOUNTER 2023-08-04 19:27 | Emergency (ER) | payer MEDICARE, MEDICAID, SELFPAY ==
--- NOTE | 2023-08-04 | ECG_ITS ---
Test Reason : chest pain Blood Pressure : / mmHG Vent. Rate : 077 BPM Atrial Rate : 077 BPM P-R Int : 166 ms QRS Dur : 082 ms QT Int : 380 ms P-R-T Axes : 028 058 058 degrees QTc Int : 430 ms Normal sinus rhythm Normal ECG When compared with ECG of 15-JUL-2023 16:24, No significant changes seen Referred By: Generic ED Physician Electronically Signed By:JAMAL RODRIGUEZ MD
--- NOTE | ~2023-08-04 | XR_ITS ---
EXAMINATION: XR CHEST CLINICAL INFORMATION: Chest pain COMPARISON: 05/04/2023 TECHNIQUE: Frontal view of the chest was obtained. FINDINGS: The lungs are clear with no focal consolidation. No evidence of pneumothorax, pulmonary edema, or pleural effusions. The cardiomediastinal silhouette is unremarkable. No acute osseous findings. XR/XR chest 1V IMPRESSION: No acute cardiopulmonary findings.
[2023-08-04 19:37] VITALS: BP 142/85; BP 150/84; PULSE 78; PULSE 85; RESP 14; TEMP 36.6; O2SAT 97; O2SAT 98; BMI 39.8
[2023-08-04 19:46] VITALS: BP 145/81; PULSE 75; PULSE 95; RESP 14; TEMP 36.7; O2SAT 96
--- NOTE | 2023-08-04 19:46 | PC.NURSE ---
pt reports sharp chest pain x1 hour, more on left side of chest radiating to the back. EMS gave ASA with no improvement
[2023-08-04 20:24] LABS: Basophils Absolute Auto 0.1 X10*3/uL (0.0-0.2); Basophils Percent Auto 0.7 % (0-2); Eosinophils Absolute Auto 0.3 X10*3/uL (0.0-0.4); Eosinophils Percent Auto 4.8 % (0-4); Hematocrit 37.8 % (37.0-47.0); Hemoglobin 12.3 g/dl (12.0-16.0); Imm Gran Abs Auto 0.02 X10*3/uL (0.00-0.03); Imm Gran Pct Auto 0.3 % (0.0-0.4); Lymphocytes Absolute Auto 1.9 X10*3/uL (1.2-4.9); Lymphocytes Percent Auto 26.2 % (20-40); MANUAL DIFF FLAG NO; Mean Corpuscular HGB Conc 32.5 g/dl (31.0-35.0); Mean Corpuscular Hemoglobin 28.9 pg (27.0-33.0); Mean Corpuscular Volume 88.9 fL (80.0-98.0); Mean Platelet Volume 9.7 fL (9.4-12.3); Monocytes Absolute Auto 0.6 X10*3/uL (0.1-1.2); Monocytes Percent Auto 8.4 % (2-11); Neutrophils Absolute Auto 4.3 x10*3/uL (2.0-8.3); Neutrophils Percent Auto 59.6 % (45-73); Platelet Count 287 X10*3/uL (160-400); Red Blood Count 4.25 X10*6/uL (4.20-5.50); Red Cell Distribution Width 13.4 % (11.0-16.0); White Blood Count 7.1 X10*3/uL (4.8-10.8)
[2023-08-04 20:37] LABS: Alanine Aminotransferase 17 U/L (0-31); Albumin Level 4.7 g/dL (3.5-5.0); Alkaline Phosphatase 116 U/L (39-117); Anion Gap 18 (12-20); Aspartate Amino Transferase 17 U/L (5-31); Bilirubin Total 0.1 mg/dL (0.0-1.0); Blood Urea Nitrogen 10 mg/dL (9-16); Calcium 9.8 mg/dL (8.4-10.2); Carbon Dioxide 21 mmol/L (22-29); Chloride 105 mmol/L (96-108); Estimated Glomerular Filt Rate > 60; Glucose Random 92 mg/dL (60-115); Potassium 3.8 mmol/L (3.3-5.1); Sodium 140 mmol/L (135-145); Total Protein 7.8 g/dL (6.5-8.0)
[2023-08-04 20:50] LABS: Troponin-I High Sensitivity < 2.7 ng/L (<3.5-17.0)
--- NOTE | 2023-08-04 21:26 | PC.NURSE ---
pt is calm and cooperative, awaiting provider, offers no complaints to this RN at this time
[2023-08-04 23:08] VITALS: BP 140/83; PULSE 72; RESP 15; TEMP 36.6
--- NOTE | 2023-08-04 23:12 | ED.CHESTPAIN ---
HPI - Chest Pain General Chief Complaint: Chest Pain Stated Complaint: COMING FROM [facility] CHEST PAIN W/ SOB PER EMS Time Seen by Provider: 08/04/23 21:52 Source: patient Mode of arrival: EMS Limitations: no limitations History of Present Illness HPI narrative: Patient comes to the emergency room complaining of chest pain. Patient states that when she was in her skilled nursing she has shortness of breath, chest pain, states she thinks it was a panic attack. When she no longer was anxious, patient did not have any shortness of breath or chest pain. Since ambulance arrived, patient has been asymptomatic. Patient denies SI or HI. Related Data Home Medications Medication Instructions Recorded Confirmed lisinopril 5 mg tablet 5 mg PO DAILY 04/12/23 07/22/23 metformin 500 mg tablet 500 mg PO BID 04/12/23 07/22/23 mirtazapine 15 mg tablet 7.5 mg PO DAILY 04/12/23 07/22/23 montelukast 10 mg tablet 10 mg PO DAILY 04/12/23 07/22/23 pantoprazole 40 mg tablet,delayed 40 mg PO DAILY 04/12/23 07/22/23 release fluphenazine HCl 5 mg tablet 5 mg PO BID 05/09/23 07/22/23 prazosin 2 mg capsule 4 mg PO BEDTIME 05/28/23 07/22/23 albuterol sulfate 90 mcg/actuation 2 puff inhalation QID PRN 06/15/23 07/22/23 aerosol inhaler (Ventolin HFA) Shortness Of Breath Or Wheezing atorvastatin 10 mg tablet 10 mg PO DAILY 06/15/23 07/22/23 benztropine 1 mg tablet 1 mg PO BID 06/15/23 07/22/23 fluoxetine 40 mg capsule 80 mg PO QAM 06/15/23 07/22/23 trazodone 150 mg tablet 150 mg PO BEDTIME 06/15/23 07/22/23 lorazepam 0.5 mg tablet 0.5 mg PO DAILY PRN Anxiety 07/15/23 07/22/23 naproxen sodium 220 mg tablet 220 mg PO BID PRN Pain 07/15/23 07/22/23 Previous Rx's Medication Instructions Recorded cefuroxime axetil 250 mg tablet 250 mg PO BID 10 days #20 tabs 07/23/23 nitrofurantoin 100 mg PO BID #20 caps 07/23/23 monohydrate/macrocrystals 100 mg capsule (Macrobid) Allergies Allergy/AdvReac Type Severity Reaction Status Date / Time azithromycin [AZITHROMYCIN] Allergy Severe Rash Verified 07/21/23 12:54 Fish Containing Products Allergy Severe Anaphylaxis Verified 07/21/23 12:54 codeine [Codeine] Allergy Intermediate Rash Verified 07/21/23 12:54 Penicillins Allergy Intermediate Rash Verified 07/21/23 12:54 prednisone [Prednisone] Allergy Intermediate Rash Verified 07/21/23 12:54 Sulfa (Sulfonamide Allergy Intermediate Rash Verified 07/21/23 12:54 Antibiotics) [Sulfa (Sulfonamides)] ziprasidone [From Geodon] Allergy Intermediate dysuria, Verified 07/21/23 12:54 rash Review of Systems Review of Systems: Constitutional : No Weight loss, No Fever, No Chills, No Night Sweats, No Fatigue, No Malaise ENT/Mouth : No Hearing loss, No Ear Pain, No Nasal Congestion, No Sinus Pain, No Hoarseness, No sore throat, No Rhinorrhea, No Swallowing Difficulty Eyes: No Eye Pain, No Swelling, No Redness, No Foreign Body, No Discharge, No Vision Changes Cardiovascular : Complaining of chest pain and shortness of breath with anxiety, No Dyspnea on Exertion, No Orthopnea, No Edema, No Palpitations Respiratory : No Cough, No Sputum, No Wheezing, No Smoke Exposure, No Dyspnea Gastrointestinal : No Nausea, No Vomiting, No Diarrhea, No Constipation, No abdominal Pain, No Hematochezia, No Melena Genitourinary : no irregular bleeding, No Dysuria, No Urinary Frequency, No Hematuria, No Urinary Incontinence, No Urgency, No Flank Pain, No Urinary Flow Changes, No Hesitancy Musculoskeletal : No joint pain, No Myalgias, No Joint Swelling Skin : No Skin Lesions, No rash Neuro : No Weakness, No Numbness, No Paresthesias, No Loss of Consciousness, No Dizziness, No Headache Psych : complaining of panic attack, No Depression, No SI/HI/AH/VH, No Social Issues, Heme/Lymph: No Bruising, No Bleeding,No Lymphadenopathy Endocrine : No Polyuria, No Polydipsia, No Temperature Intolerance PMFSH Past Medical History Medical History Chest pain Acute anxiety COVID-19 Full body hives Major depression Dizziness Suicide attempt UTI (urinary tract infection) Acetaminophen overdose COVID History of attempted suicide History of non-suicidal self-harm Hypomagnesemia Suicide attempt Suicide attempt by acetaminophen overdose Acetaminophen overdose Depression MDD (major depressive disorder), recurrent episode, severe Diabetes type 2, controlled Borderline personality disorder PTSD (post-traumatic stress disorder) Overdose GERD (gastroesophageal reflux disease) Mood disorder Hyperlipidemia Bronchitis Social History Social History Household Members: Other Household Members Other:: skilled nursing Housing: Assisted Living Facility Housing Other:: skilled nursing Do you presently have visiting nurse or other home services: No Unable to assess alcohol history related to: Unknown Alcohol intake: current Alcohol intake frequency: does not drink Patient Tobacco Use Status: Current everyday Tobacco user Tobacco use type: Cigarette Cigarette Packs Per Day: 1 Cigarettes Per Day: 20.0 Years Smoked: 22 Smoked in Last 30 Days: Yes e-Cigarette/Vaping Use: Never Used Second Hand Smoke Exposure: Yes Use of substances other than those prescribed or required for medical reasons: No Substance Use Type: Marijuana Advance Directives: No Advance Directives Information Provided: No Patient : No service: No Current occupational status: unemployed and disabled Sexual orientation: Straight/Heterosexual Physical Exam Vital Signs: Vital Signs: Last Vital Signs Temp 98 F 08/04/23 23:08 Pulse 72 08/04/23 23:08 Resp 15 08/04/23 23:08 BP 140/83 H 08/04/23 23:08 Pulse Ox 96 08/04/23 19:46 O2 Del Method Room Air 08/04/23 23:08 BMI result Body Mass Index 39.8 Const: Other: Appearance: Alert. Oriented X3. No acute distress. Eyes: Pupils equal, round and reactive to light. ENT: Pharynx normal. Neck: Normal inspection. Neck supple. No lymph nodes noted. No crepitus CVS: Normal heart rate and rhythm. Pulses normal. Normal S1 and S2 Respiratory: No respiratory distress. Breath sounds normal. No Wheezing. No rales Abdomen: Soft and nontender. No rigidity. No distention. Skin: Skin warm and dry. Normal skin color. Normal skin turgor. Extremities: No lower extremity edema. No Lacerations. No Rash Neuro: Oriented X 3. No motor deficit. No sensory deficit. Moving all extremities. No slurred speech. CN 2 through 12 grossly intact Psych: calm, cooperative, normal affect Course Course Course Narrative: - my interpretation of labs: Hematology within normal limits, chemistry within normal limits, troponin normal - february interpretation of EKG: Normal sinus rhythm, heart rate 77, no ST segment depression or elevation, no T-wave inversion, QTC 430 - my interpretation of chest x-ray: No infiltrates, no pneumothorax or rib fractures. - Patient states that she feels better, patient has been asymptomatic since EMS picked her up from her skilled nursing. Patient does not want to wait for the radiology report of her chest x-ray and does not want to have troponin repeated. - Patient's vitals stable, blood pressure 140/83, heart rate 72, respirations 15 Medical Decision Making Differential Diagnosis Differential Diagnoses: The differential diagnosis associated with the presentation includes ( anxiety, panic attack, ACS, pneumonia, costochondritis) Admission/Observation Consideration of admission/observation: Escalation of care including admission/observation considered ( given the patient's presentation on arrival, patient was considered.) Lab Data MDM Lab Attestation statement: I reviewed the patient's lab results. 08/04/23 20:18 08/04/23 20:18 Labs: Lab Results 08/04/23 Range/Units 20:18 WBC 7.1 (4.8-10.8) X10*3/uL RBC 4.25 (4.20-5.50) X10*6/uL Hgb 12.3 (12.0-16.0) g/dl Hct 37.8 (37.0-47.0) % MCV 88.9 (80.0-98.0) fL MCH 28.9 (27.0-33.0) pg MCHC 32.5 (31.0-35.0) g/dl RDW 13.4 (11.0-16.0) % Plt Count 287 (160-400) X10*3/uL MPV 9.7 (9.4-12.3) fL Immature Gran % (Auto) 0.3 (0.0-0.4) % Neut % (Auto) 59.6 (45-73) % Lymph % (Auto) 26.2 (20-40) % [place] % (Auto) 8.4 (2-11) % Eos % (Auto) 4.8 H (0-4) % Baso % (Auto) 0.7 (0-2) % Lymph # (Auto) 1.9 (1.2-4.9) X10*3/uL [place] # (Auto) 0.6 (0.1-1.2) X10*3/uL Eos # (Auto) 0.3 (0.0-0.4) X10*3/uL Baso # (Auto) 0.1 (0.0-0.2) X10*3/uL Abs Immat Gran (auto) 0.02 (0.00-0.03) X10*3/uL Absolute Neuts (auto) 4.3 (2.0-8.3) x10*3/uL Absolute Nucleated RBC 0.000 (0.0-0.012) X10*3/uL Nucleated RBC % (auto) 0.0 (0.0-0.2) /100WBC Sodium 140 (135-145) mmol/L Potassium 3.8 (3.3-5.1) mmol/L Chloride 105 (96-108) mmol/L Carbon Dioxide 21 L (22-29) mmol/L Anion Gap 18 (12-20) BUN 10 (9-16) mg/dL Creatinine 0.80 (0.5-1.4) mg/dL Estim Creat Clear Calc 105.0 Estimated GFR > 60 Random Glucose 92 (60-115) mg/dL Calcium 9.8 (8.4-10.2) mg/dL Total Bilirubin 0.1 (0.0-1.0) mg/dL AST 17 (5-31) U/L ALT 17 (0-31) U/L Alkaline Phosphatase 116 (39-117) U/L Troponin I High Sens < 2.7 (<3.5-17.0) ng/L Total Protein 7.8 (6.5-8.0) g/dL Albumin 4.7 (3.5-5.0) g/dL Independent Interpretation I performed an independent interpretation of an: EKG and Plain X-Ray Critical Care Time Critical Care Time Critical Care Time: Yes Total Critical Care Time: 45 Attestation: I have personally provided critical care time. Time includes review of lab data, radiology results, discussion with consultants, and monitoring for potential decompensation. Intervention performed as documented. Discharge Plan Discharge Clinical Impression: Atypical chest pain Patient Disposition: Home, Self-Care Instructions: Chest Pain (ED) Additional Instructions: Please follow-up with your primary care physician tomorrow. If you have any worsening or new symptoms, please return to the emergency room or call 911 Prescriptions: No Action metformin 500 mg tablet 500 mg PO BID pantoprazole 40 mg tablet,delayed release (DR/EC) 40 mg PO DAILY montelukast 10 mg tablet 10 mg PO DAILY lisinopril 5 mg tablet 5 mg PO DAILY mirtazapine 15 mg tablet 7.5 mg PO DAILY fluoxetine 40 mg capsule 80 mg PO QAM atorvastatin 10 mg tablet 10 mg PO DAILY trazodone 150 mg tablet 150 mg PO BEDTIME benztropine 1 mg tablet 1 mg PO BID albuterol sulfate [Ventolin HFA] 90 mcg/actuation HFA aerosol inhaler 2 puff inhalation QID PRN (Reason: Shortness Of Breath Or Wheezing) nitrofurantoin monohyd/m-cryst [Macrobid] 100 mg capsule 100 mg PO BID Qty: 20 0RF Rx Instructions: must administer with a meal/food cefuroxime axetil 250 mg tablet 250 mg PO BID 10 Days Qty: 20 0RF fluphenazine HCl 5 mg tablet 5 mg PO BID prazosin 2 mg capsule 4 mg PO BEDTIME lorazepam 0.5 mg tablet 0.5 mg PO DAILY PRN (Reason: Anxiety) naproxen sodium 220 mg Tablet 220 mg PO BID PRN (Reason: Pain)
== END 2023-08-04 23:29 | disposition home or self-care (01) ==
PROVIDERS: Emergency Provider Emergency Medicine; PCP Nurse Practitioner Family
DX: R07.89 Other chest pain (principal); E11.9 Type 2 diabetes mellitus without complications; E78.5 Hyperlipidemia, unspecified; F17.210 Nicotine dependence, cigarettes, uncomplicated; F12.90 Cannabis use, unspecified, uncomplicated; Z79.84 Long term (current) use of oral hypoglycemic drugs; Z79.899 Other long term (current) drug therapy
CPT/HCPCS: 36415; 71045; 80053; 84484; 85025; 93005; 99283; 99285

== ENCOUNTER 2023-08-09 21:25 | Emergency (ER) | payer MEDICARE, MEDICAID, SELFPAY ==
--- NOTE | 2023-08-09 | ECG_ITS ---
Test Reason : CHEST PAIN Blood Pressure : / mmHG Vent. Rate : 075 BPM Atrial Rate : 075 BPM P-R Int : 174 ms QRS Dur : 088 ms QT Int : 402 ms P-R-T Axes : 026 042 049 degrees QTc Int : 448 ms Normal sinus rhythm Normal ECG When compared with ECG of 04-AUG-2023 19:38, No significant change was found Referred By: Generic ED Physician Electronically Signed By:JAMAL RODRIGUEZ MD
--- NOTE | ~2023-08-09 | XR_ITS ---
EXAMINATION: XR CHEST CLINICAL INFORMATION: Chest pain COMPARISON: Chest radiograph from 08/04/2023 TECHNIQUE: Frontal view of the chest was obtained. FINDINGS: No focal consolidation. No pneumothorax. Trachea is midline. Cardiac mediastinal silhouette is not enlarged. No large pleural effusion. Osseous structures are intact. Soft tissues are unremarkable. XR/XR chest 1V IMPRESSION: No acute cardiopulmonary process.
[2023-08-09 21:31] VITALS: BP 157/87; BP 160/80; PULSE 108; PULSE 76; RESP 16; TEMP 36.8; O2SAT 98; BMI 36.0
[2023-08-09 21:33] VITALS: PULSE 80
--- NOTE | 2023-08-09 21:42 | PC.NURSE ---
pt comes in from senior living, reporting 9/10 left chest pain similar to the pain she was having the week prior when this RN saw patient. Pt endorses dizziness, no SOB, no known trauma. Pt is calm, resting comfortably on stretcher, respirations even and unlabored, skin pwd, alert and oriented x4
[2023-08-09 21:50] LABS: MANUAL DIFF FLAG NO
[2023-08-09 21:51] LABS: Basophils Absolute Auto 0.1 X10*3/uL (0.0-0.2); Basophils Percent Auto 0.8 % (0-2); Eosinophils Absolute Auto 0.3 X10*3/uL (0.0-0.4); Eosinophils Percent Auto 4.4 % (0-4); Hematocrit 32.4 % (37.0-47.0); Hemoglobin 10.6 g/dl (12.0-16.0); Imm Gran Abs Auto 0.02 X10*3/uL (0.00-0.03); Imm Gran Pct Auto 0.3 % (0.0-0.4); Lymphocytes Absolute Auto 1.8 X10*3/uL (1.2-4.9); Lymphocytes Percent Auto 29.3 % (20-40); Mean Corpuscular HGB Conc 32.7 g/dl (31.0-35.0); Mean Corpuscular Hemoglobin 28.9 pg (27.0-33.0); Mean Corpuscular Volume 88.3 fL (80.0-98.0); Mean Platelet Volume 9.5 fL (9.4-12.3); Monocytes Absolute Auto 0.7 X10*3/uL (0.1-1.2); Monocytes Percent Auto 10.7 % (2-11); Neutrophils Absolute Auto 3.3 x10*3/uL (2.0-8.3); Neutrophils Percent Auto 54.5 % (45-73); Platelet Count 267 X10*3/uL (160-400); Red Blood Count 3.67 X10*6/uL (4.20-5.50); Red Cell Distribution Width 13.2 % (11.0-16.0); White Blood Count 6.1 X10*3/uL (4.8-10.8)
--- NOTE | 2023-08-09 22:06 | ED.CHESTPAIN ---
HPI - Chest Pain General Chief Complaint: Chest Pain Stated Complaint: cp and dizziness Time Seen by Provider: 08/09/23 21:29 Source: patient Mode of arrival: EMS Limitations: no limitations History of Present Illness HPI narrative: Patient comes to the emergency room complaining of chest pain, patient coming from a intermediate. Patient states that she has been cleaning her room all day, lifting heavy objects. Patient complaining of chest pain when she moves certain ways or when she touches her chest on the left side. Patient denies shortness of breath. Patient denies any injuries. Denies SI or HI, denies feeling anxious Related Data Home Medications Medication Instructions Recorded Confirmed lisinopril 5 mg tablet 5 mg PO DAILY 04/12/23 07/22/23 metformin 500 mg tablet 500 mg PO BID 04/12/23 07/22/23 mirtazapine 15 mg tablet 7.5 mg PO DAILY 04/12/23 07/22/23 montelukast 10 mg tablet 10 mg PO DAILY 04/12/23 07/22/23 pantoprazole 40 mg tablet,delayed 40 mg PO DAILY 04/12/23 07/22/23 release fluphenazine HCl 5 mg tablet 5 mg PO BID 05/09/23 07/22/23 prazosin 2 mg capsule 4 mg PO BEDTIME 05/28/23 07/22/23 albuterol sulfate 90 mcg/actuation 2 puff inhalation QID PRN 06/15/23 07/22/23 aerosol inhaler (Ventolin HFA) Shortness Of Breath Or Wheezing atorvastatin 10 mg tablet 10 mg PO DAILY 06/15/23 07/22/23 benztropine 1 mg tablet 1 mg PO BID 06/15/23 07/22/23 fluoxetine 40 mg capsule 80 mg PO QAM 06/15/23 07/22/23 trazodone 150 mg tablet 150 mg PO BEDTIME 06/15/23 07/22/23 lorazepam 0.5 mg tablet 0.5 mg PO DAILY PRN Anxiety 07/15/23 07/22/23 naproxen sodium 220 mg tablet 220 mg PO BID PRN Pain 07/15/23 07/22/23 Previous Rx's Medication Instructions Recorded cefuroxime axetil 250 mg tablet 250 mg PO BID 10 days #20 tabs 07/23/23 nitrofurantoin 100 mg PO BID #20 caps 07/23/23 monohydrate/macrocrystals 100 mg capsule (Macrobid) Allergies Allergy/AdvReac Type Severity Reaction Status Date / Time azithromycin [AZITHROMYCIN] Allergy Severe Rash Verified 07/21/23 12:54 Fish Containing Products Allergy Severe Anaphylaxis Verified 07/21/23 12:54 codeine [Codeine] Allergy Intermediate Rash Verified 07/21/23 12:54 Penicillins Allergy Intermediate Rash Verified 07/21/23 12:54 prednisone [Prednisone] Allergy Intermediate Rash Verified 07/21/23 12:54 Sulfa (Sulfonamide Allergy Intermediate Rash Verified 07/21/23 12:54 Antibiotics) [Sulfa (Sulfonamides)] ziprasidone [From Geodon] Allergy Intermediate dysuria, Verified 07/21/23 12:54 rash Review of Systems Review of Systems: Constitutional : No Weight loss, No Fever, No Chills, No Night Sweats, No Fatigue, No Malaise ENT/Mouth : No Hearing loss, No Ear Pain, No Nasal Congestion, No Sinus Pain, No Hoarseness, No sore throat, No Rhinorrhea, No Swallowing Difficulty Eyes: No Eye Pain, No Swelling, No Redness, No Foreign Body, No Discharge, No Vision Changes Cardiovascular : Complaining of left-sided Chest Pain which is reproducible with movement, No SOB, No Dyspnea on Exertion, No Orthopnea, No Edema, No Palpitations Respiratory : No Cough, No Sputum, No Wheezing, No Smoke Exposure, No Dyspnea Gastrointestinal : No Nausea, No Vomiting, No Diarrhea, No Constipation, No abdominal Pain, No Hematochezia, No Melena Genitourinary : no irregular bleeding, No Dysuria, No Urinary Frequency, No Hematuria, No Urinary Incontinence, No Urgency, No Flank Pain, No Urinary Flow Changes, No Hesitancy Musculoskeletal : No joint pain, No Myalgias, No Joint Swelling Skin : No Skin Lesions, No rash Neuro : No Weakness, No Numbness, No Paresthesias, No Loss of Consciousness, No Dizziness, No Headache Psych : No Anxiety/Panic, No Depression, No SI/HI/AH/VH, No Social Issues, Heme/Lymph: No Bruising, No Bleeding,No Lymphadenopathy Endocrine : No Polyuria, No Polydipsia, No Temperature Intolerance PMFSH Past Medical History Medical History Chest pain Acute anxiety COVID-19 Full body hives Major depression Dizziness Suicide attempt UTI (urinary tract infection) Acetaminophen overdose COVID History of attempted suicide History of non-suicidal self-harm Hypomagnesemia Suicide attempt Suicide attempt by acetaminophen overdose Acetaminophen overdose Depression MDD (major depressive disorder), recurrent episode, severe Diabetes type 2, controlled Borderline personality disorder PTSD (post-traumatic stress disorder) Overdose GERD (gastroesophageal reflux disease) Mood disorder Hyperlipidemia Bronchitis Social History Social History Household Members: Other Household Members Other:: intermediate Housing: Assisted Living Facility Housing Other:: intermediate Do you presently have visiting nurse or other home services: No Unable to assess alcohol history related to: Unknown Alcohol intake: current Alcohol intake frequency: does not drink Patient Tobacco Use Status: Current everyday Tobacco user Tobacco use type: Cigarette Cigarette Packs Per Day: 1 Cigarettes Per Day: 20.0 Years Smoked: 22 Smoked in Last 30 Days: Yes e-Cigarette/Vaping Use: Never Used Second Hand Smoke Exposure: Yes Use of substances other than those prescribed or required for medical reasons: No Substance Use Type: Marijuana Advance Directives: No Advance Directives Information Provided: No service: No Current occupational status: unemployed and disabled Sexual orientation: Straight/Heterosexual Physical Exam Vital Signs: Vital Signs: Last Vital Signs Temp 98.3 F 08/09/23 21:31 Pulse 76 08/09/23 21:31 Resp 16 08/09/23 21:31 BP 157/87 H 08/09/23 21:31 Pulse Ox 98 08/09/23 21:31 O2 Del Method Room Air 08/09/23 21:31 BMI result Body Mass Index 36.0 Const: Other: Appearance: Alert. Oriented X3. No acute distress. Well-appearing Eyes: Pupils equal, round and reactive to light. ENT: Pharynx normal. Neck: Normal inspection. Neck supple. No lymph nodes noted. No crepitus CVS: Normal heart rate and rhythm. Reproducible chest pain with palpation and sitting up. Pulses normal. Normal S1 and S2 Respiratory: No respiratory distress. Breath sounds normal. No Wheezing. No rales Abdomen: Soft and nontender. No rigidity. No distention. Skin: Skin warm and dry. Normal skin color. Normal skin turgor. Extremities: No lower extremity edema. No Lacerations. No Rash Neuro: Oriented X 3. No motor deficit. No sensory deficit. Moving all extremities. No slurred speech. CN 2 through 12 grossly intact Psych: calm, cooperative, normal affect Course Course Course Narrative: -given patient's physical exam, patient likely has musculoskeletal pain. Labs pending Medical Decision Making Medical Decision Making [facility] Narrative: -my interpretation of EKG: Normal sinus rhythm, heart rate 75, no ST segment depression or elevation, no T-wave inversion, QTC 448 -my interpretation of chest x-ray: No infiltrates, no fracture ribs -my interpretation of labs, hematology and chemistry at baseline, troponin negative, D-dimer negative -source of pain likely musculoskeletal Differential Diagnosis Differential Diagnoses: The differential diagnosis associated with the presentation includes (ACS, musculoskeletal pain, anxiety) Admission/Observation Consideration of admission/observation: Escalation of care including admission/observation considered (This is the 2nd time in 1 week the patient comes with chest pain, admission was considered on arrival) Lab Data [facility] Lab Attestation statement: I reviewed the patient's lab results. 08/09/23 21:46 08/09/23 21:46 Labs: Lab Results 08/09/23 Range/Units 21:46 WBC 6.1 (4.8-10.8) X10*3/uL RBC 3.67 L (4.20-5.50) X10*6/uL Hgb 10.6 L (12.0-16.0) g/dl Hct 32.4 L (37.0-47.0) % MCV 88.3 (80.0-98.0) fL MCH 28.9 (27.0-33.0) pg MCHC 32.7 (31.0-35.0) g/dl RDW 13.2 (11.0-16.0) % Plt Count 267 (160-400) X10*3/uL MPV 9.5 (9.4-12.3) fL Immature Gran % (Auto) 0.3 (0.0-0.4) % Neut % (Auto) 54.5 (45-73) % Lymph % (Auto) 29.3 (20-40) % [place] % (Auto) 10.7 (2-11) % Eos % (Auto) 4.4 H (0-4) % Baso % (Auto) 0.8 (0-2) % Lymph # (Auto) 1.8 (1.2-4.9) X10*3/uL [place] # (Auto) 0.7 (0.1-1.2) X10*3/uL Eos # (Auto) 0.3 (0.0-0.4) X10*3/uL Baso # (Auto) 0.1 (0.0-0.2) X10*3/uL Abs Immat Gran (auto) 0.02 (0.00-0.03) X10*3/uL Absolute Neuts (auto) 3.3 (2.0-8.3) x10*3/uL Absolute Nucleated RBC 0.000 (0.0-0.012) X10*3/uL Nucleated RBC % (auto) 0.0 (0.0-0.2) /100WBC D-Dimer High Sensitivty < 150 NG/ML Sodium 141 (135-145) mmol/L Potassium 3.9 (3.3-5.1) mmol/L Chloride 108 (96-108) mmol/L Carbon Dioxide 23 (22-29) mmol/L Anion Gap 14 (12-20) BUN 13 (9-16) mg/dL Creatinine 0.77 (0.5-1.4) mg/dL Estim Creat Clear Calc 103.3 Estimated GFR > 60 Random Glucose 130 H (60-115) mg/dL Calcium 8.9 D (8.4-10.2) mg/dL Total Bilirubin 0.1 (0.0-1.0) mg/dL Direct Bilirubin < 0.2 (0.0-0.5) mg/dL AST 13 (5-31) U/L ALT 12 (0-31) U/L Alkaline Phosphatase 118 H (39-117) U/L Troponin I High Sens < 2.7 (<3.5-17.0) ng/L Total Protein 6.6 (6.5-8.0) g/dL Albumin 3.9 (3.5-5.0) g/dL Independent Interpretation I performed an independent interpretation of an: EKG and Plain X-Ray Radiology Impression Discussion of test interpretation with radiology: I have reviewed the radiologist's reading. Radiologist Impression: FINDINGS: No focal consolidation. No pneumothorax. Trachea is midline. Cardiac mediastinal silhouette is not enlarged. No large pleural effusion. Osseous structures are intact. Soft tissues are unremarkable. XR/XR chest 1V IMPRESSION: No acute cardiopulmonary process. Scores Heart Score History: -0- slightly suspicious ECG: -0- normal Age: -0- < or = 45 Risk factory: -0- no risk factors known Troponin: -0- < or = normal limit Score: 0 Risk: 1.7% Critical Care Time Critical Care Time Critical Care Time: Yes Total Critical Care Time: 30 Attestation: I have personally provided critical care time. Time includes review of lab data, radiology results, discussion with consultants, and monitoring for potential decompensation. Intervention performed as documented. Discharge Plan Discharge Clinical Impression: Chest wall pain Patient Disposition: Home, Self-Care Instructions: Chest Wall Pain (ED), Chest Pain (ED) Additional Instructions: Please follow-up with your primary care physician tomorrow. If you have any worsening or new symptoms, please return to the emergency room or call 911 Prescriptions: No Action metformin 500 mg tablet 500 mg PO BID pantoprazole 40 mg tablet,delayed release (DR/EC) 40 mg PO DAILY montelukast 10 mg tablet 10 mg PO DAILY lisinopril 5 mg tablet 5 mg PO DAILY mirtazapine 15 mg tablet 7.5 mg PO DAILY fluoxetine 40 mg capsule 80 mg PO QAM atorvastatin 10 mg tablet 10 mg PO DAILY trazodone 150 mg tablet 150 mg PO BEDTIME benztropine 1 mg tablet 1 mg PO BID albuterol sulfate [Ventolin HFA] 90 mcg/actuation HFA aerosol inhaler 2 puff inhalation QID PRN (Reason: Shortness Of Breath Or Wheezing) nitrofurantoin monohyd/m-cryst [Macrobid] 100 mg capsule 100 mg PO BID Qty: 20 0RF Rx Instructions: must administer with a meal/food cefuroxime axetil 250 mg tablet 250 mg PO BID 10 Days Qty: 20 0RF fluphenazine HCl 5 mg tablet 5 mg PO BID prazosin 2 mg capsule 4 mg PO BEDTIME lorazepam 0.5 mg tablet 0.5 mg PO DAILY PRN (Reason: Anxiety) naproxen sodium 220 mg Tablet 220 mg PO BID PRN (Reason: Pain)
[2023-08-09 22:07] LABS: Alanine Aminotransferase 12 U/L (0-31); Albumin Level 3.9 g/dL (3.5-5.0); Alkaline Phosphatase 118 U/L (39-117); Anion Gap 14 (12-20); Aspartate Amino Transferase 13 U/L (5-31); Bilirubin Direct < 0.2 mg/dL (0.0-0.5); Bilirubin Total 0.1 mg/dL (0.0-1.0); Blood Urea Nitrogen 13 mg/dL (9-16); Calcium 8.9 mg/dL (8.4-10.2); Carbon Dioxide 23 mmol/L (22-29); Chloride 108 mmol/L (96-108); Creatinine Clr Calc Pharmacy 103.3; Estimated Glomerular Filt Rate > 60; Glucose Random 130 mg/dL (60-115); Potassium 3.9 mmol/L (3.3-5.1); Sodium 141 mmol/L (135-145); Total Protein 6.6 g/dL (6.5-8.0)
[2023-08-09 22:09] LABS: D Dimer High Sensitivity < 150 NG/ML
[2023-08-09 22:16] LABS: Troponin-I High Sensitivity < 2.7 ng/L (<3.5-17.0)
== END 2023-08-09 22:39 | disposition home or self-care (01) ==
PROVIDERS: Emergency Provider Emergency Medicine
DX: R07.89 Other chest pain (principal); R42 Dizziness and giddiness; F17.210 Nicotine dependence, cigarettes, uncomplicated; Z71.6 Tobacco abuse counseling; Z79.899 Other long term (current) drug therapy
CPT/HCPCS: 36415; 71045; 80048; 80076; 84484; 85025; 85379; 93005; 99283; 99284

== ENCOUNTER 2023-08-21 18:39 | Emergency (ER) | payer MEDICARE, MEDICAID, SELFPAY ==
--- NOTE | ~2023-08-21 | XR_ITS ---
EXAMINATION: XR CHEST CLINICAL INFORMATION: Chest pain. Cough. COMPARISON: Chest done on 08/09/2023. TECHNIQUE: 2 views of the chest were obtained. FINDINGS: Persistent stable hyperinflated lung field is noted bilaterally. Subtle asymmetric apparent opacity is noted at right lower lung field laterally, appear new since the prior study. The cardiac mediastinal silhouette is within normal limits. No evidence of any pleural effusion or pneumothorax. The visualized upper abdomen is unremarkable. XR/XR chest 2V IMPRESSION: Asymmetric apparent opacity is noted at right lower lung field laterally, seen only on the frontal projection, appear new since 08/09/2023. CT scan of the chest may be considered for further clarification.
--- NOTE | 2023-08-21 18:42 | ECG_ITS ---
Test Reason : CHEST PAIN Blood Pressure : / mmHG Vent. Rate : 097 BPM Atrial Rate : 097 BPM P-R Int : 180 ms QRS Dur : 082 ms QT Int : 362 ms P-R-T Axes : 049 028 051 degrees QTc Int : 459 ms Normal sinus rhythm Nonspecific ST abnormality Inferior leads Borderline ECG When compared with ECG of 09-AUG-2023 21:30, No significant change was found Referred By: Generic ED Physician Electronically Signed By:JAMAL RODRIGUEZ MD
[2023-08-21 18:43] VITALS: BP 138/77; BP 157/86; PULSE 101; PULSE 110; RESP 20; TEMP 36.9; O2SAT 96; O2SAT 98; BMI 38.0
[2023-08-21 18:58] LABS: MANUAL DIFF FLAG NO
--- NOTE | 2023-08-21 18:59 | ED.CHESTPAIN ---
HPI - Chest Pain General Chief Complaint: Chest Pain Stated Complaint: CHEST PAIN X1HR Time Seen by Provider: 08/21/23 22:33 Source: patient Mode of arrival: EMS Limitations: no limitations History of Present Illness HPI narrative: 47 yo female with PMH of HLD, GERD, depression, DM, borderline personality disorder here with c/o several days of chest pain that hurts to move, touch and breathe. She notes it has been hurting all day. No trauma, no recent URIs, not on OCPs. Has not had pain like this before. Denies ingestions. MD complaint: chest pain Onset (ago): week(s) (1) Timing of current episode: constant Prior episodes: Yes Onset: during rest Pain location: substernal and left chest Pain radiation: none Severity: moderate Quality: aching Relieving factors: nothing Exacerbating factors: inspiration, palpation and movement Associated symptoms: dyspnea Treatment prior to arrival: none Related Data Home Medications Medication Instructions Recorded Confirmed lisinopril 5 mg tablet 5 mg PO DAILY 04/12/23 07/22/23 metformin 500 mg tablet 500 mg PO BID 04/12/23 07/22/23 mirtazapine 15 mg tablet 7.5 mg PO DAILY 04/12/23 07/22/23 montelukast 10 mg tablet 10 mg PO DAILY 04/12/23 07/22/23 pantoprazole 40 mg tablet,delayed 40 mg PO DAILY 04/12/23 07/22/23 release fluphenazine HCl 5 mg tablet 5 mg PO BID 05/09/23 07/22/23 prazosin 2 mg capsule 4 mg PO BEDTIME 05/28/23 07/22/23 albuterol sulfate 90 mcg/actuation 2 puff inhalation QID PRN 06/15/23 07/22/23 aerosol inhaler (Ventolin HFA) Shortness Of Breath Or Wheezing atorvastatin 10 mg tablet 10 mg PO DAILY 06/15/23 07/22/23 benztropine 1 mg tablet 1 mg PO BID 06/15/23 07/22/23 fluoxetine 40 mg capsule 80 mg PO QAM 06/15/23 07/22/23 trazodone 150 mg tablet 150 mg PO BEDTIME 06/15/23 07/22/23 lorazepam 0.5 mg tablet 0.5 mg PO DAILY PRN Anxiety 07/15/23 07/22/23 naproxen sodium 220 mg tablet 220 mg PO BID PRN Pain 07/15/23 07/22/23 Previous Rx's Medication Instructions Recorded cefuroxime axetil 250 mg tablet 250 mg PO BID 10 days #20 tabs 07/23/23 nitrofurantoin 100 mg PO BID #20 caps 07/23/23 monohydrate/macrocrystals 100 mg capsule (Macrobid) doxycycline hyclate 100 mg capsule 100 mg PO BID 7 days #14 caps 08/21/23 Allergies Allergy/AdvReac Type Severity Reaction Status Date / Time azithromycin [AZITHROMYCIN] Allergy Severe Rash Verified 07/21/23 12:54 Fish Containing Products Allergy Severe Anaphylaxis Verified 07/21/23 12:54 codeine [Codeine] Allergy Intermediate Rash Verified 07/21/23 12:54 Penicillins Allergy Intermediate Rash Verified 07/21/23 12:54 prednisone [Prednisone] Allergy Intermediate Rash Verified 07/21/23 12:54 Sulfa (Sulfonamide Allergy Intermediate Rash Verified 07/21/23 12:54 Antibiotics) [Sulfa (Sulfonamides)] ziprasidone [From Geodon] Allergy Intermediate dysuria, Verified 07/21/23 12:54 rash Review of Systems Review of Systems: Constitutional : No Weight loss, No Fever, No Chills ENT/Mouth : No sore throat, No Rhinorrhea Eyes: No Eye Pain, No Swelling Cardiovascular : pos Chest Pain, pos SOB, no Dyspnea on Exertion, No Orthopnea, No Edema, No Palpitations Respiratory : No Cough, No Sputum Gastrointestinal : no Nausea, No Vomiting, No Diarrhea, No abdominal Pain, No Hematochezia, No Melena Genitourinary : No Dysuria, No Urinary Frequency Musculoskeletal : No joint pain, No Myalgias, No Joint Swelling Skin : No Skin Lesions, No rash Neuro : No Weakness, No Numbness, No Dizziness, No Headache Psych : No Anxiety/Panic, No Depression Heme/Lymph: No Bruising, No Lymphadenopathy Endocrine : No Polyuria, No Polydipsia All other systems reviewed and are negative [facility] Past Medical History Attestation statement: The following information was validated with the patient. Source: old records reviewed Medical History Chest pain Acute anxiety COVID-19 Full body hives Major depression Dizziness Suicide attempt UTI (urinary tract infection) Acetaminophen overdose COVID History of attempted suicide History of non-suicidal self-harm Hypomagnesemia Suicide attempt Suicide attempt by acetaminophen overdose Acetaminophen overdose Depression MDD (major depressive disorder), recurrent episode, severe Diabetes type 2, controlled Borderline personality disorder PTSD (post-traumatic stress disorder) Overdose GERD (gastroesophageal reflux disease) Mood disorder Hyperlipidemia Bronchitis Social History Social History Household Members: Other Household Members Other:: halfway Housing: Assisted Living Facility Housing Other:: halfway Do you presently have visiting nurse or other home services: No Unable to assess alcohol history related to: Unknown Alcohol intake: current Alcohol intake frequency: does not drink Patient Tobacco Use Status: Current everyday Tobacco user Tobacco use type: Cigarette Cigarette Packs Per Day: 1 Cigarettes Per Day: 20.0 Years Smoked: 22 e-Cigarette/Vaping Use: Never Used Second Hand Smoke Exposure: Yes Substance Use Type: Marijuana Advance Directives: No Advance Directives Information Provided: Yes service: No Current occupational status: unemployed and disabled Sexual orientation: Straight/Heterosexual Physical Exam Vital Signs: Vital Signs: Last Vital Signs Temp 98.5 F 08/21/23 18:43 Pulse 101 H 08/21/23 18:43 Resp 20 08/21/23 18:43 BP 157/86 H 08/21/23 18:43 Pulse Ox 96 08/21/23 18:43 O2 Del Method Room Air 08/21/23 18:43 BMI result Body Mass Index 38.0 Appearance: Alert. Oriented X3. No acute distress. Eyes: Pupils equal, round and reactive to light. ENT: Pharynx normal. Neck: Normal inspection. Neck supple. CVS: Normal heart rate and rhythm. Pulses normal. Chest: ttp along chest that reproduces pain Respiratory: No respiratory distress. Breath sounds normal. Abdomen: Soft and nontender. Skin: Skin warm and dry. Normal skin color. Normal skin turgor. Extremities: No lower extremity edema. No calf ttp Neuro: Oriented X 3. No motor deficit. No sensory deficit. Course Course Course Narrative: This is an RME: Additional HPI, ROS, PE not included below will be deferred to primary provider. Patient is a 47-year-old female who presents to the emergency department for evaluation of sudden onset 1 hr [employer], mid chest pain, states non reproducible to deep breathing, cough, or movement. reports not feeling anxious currently. Feels different than prior episodes. States mild SOB, non productive cough. Plan: labs, EKG, CXR Reevaluation(s) Reevaluation #1: ddimer negative Medical Decision Making Medical Decision Making [facility] Narrative: 47 yo female with PMH of HLD, GERD, depression, DM, borderline personality disorder here with reproduceable pleuritic chest pain - cannot rule out due to PERC given HR > 100. At this time will need trop x 1 given pain daily x 1 week and obtain CXR and EKG. She is not toxic very likely MSK pain but given HR will need to obtain ddimer. Distal pulses intact and pain x 1 week low susp for dissection. Differential Diagnosis Differential Diagnoses: The differential diagnosis associated with the presentation includes atypical chest pain, costochondritis, MSK pain, low prob VTE Admission/Observation Consideration of admission/observation: Escalation of care including admission/observation considered trop and ddimer negative with 1 week of symptoms stable for DC Lab Data [facility] Lab Attestation statement: I reviewed the patient's lab results. 08/21/23 18:55 08/21/23 18:55 Labs: Lab Results 08/21/23 08/21/23 Range/Units 18:55 23:16 WBC 7.8 (4.8-10.8) X10*3/uL RBC 3.93 L (4.20-5.50) X10*6/uL Hgb 11.4 L (12.0-16.0) g/dl Hct 34.5 L (37.0-47.0) % MCV 87.8 (80.0-98.0) fL MCH 29.0 (27.0-33.0) pg MCHC 33.0 (31.0-35.0) g/dl RDW 13.2 (11.0-16.0) % Plt Count 291 (160-400) X10*3/uL MPV 9.7 (9.4-12.3) fL Immature Gran % (Auto) 0.4 (0.0-0.4) % Neut % (Auto) 63.7 (45-73) % Lymph % (Auto) 22.8 (20-40) % [place] % (Auto) 8.2 (2-11) % Eos % (Auto) 4.4 H (0-4) % Baso % (Auto) 0.5 (0-2) % Lymph # (Auto) 1.8 (1.2-4.9) X10*3/uL [place] # (Auto) 0.6 (0.1-1.2) X10*3/uL Eos # (Auto) 0.3 (0.0-0.4) X10*3/uL Baso # (Auto) 0.0 (0.0-0.2) X10*3/uL Abs Immat Gran (auto) 0.03 (0.00-0.03) X10*3/uL Absolute Neuts (auto) 4.9 (2.0-8.3) x10*3/uL Absolute Nucleated RBC 0.000 (0.0-0.012) X10*3/uL Nucleated RBC % (auto) 0.0 (0.0-0.2) /100WBC D-Dimer High Sensitivty < 150 NG/ML Sodium 141 (135-145) mmol/L Potassium 3.7 (3.3-5.1) mmol/L Chloride 106 (96-108) mmol/L Carbon Dioxide 22 (22-29) mmol/L Anion Gap 17 (12-20) BUN 12 (9-16) mg/dL Creatinine 0.80 (0.5-1.4) mg/dL Estim Creat Clear Calc 102.3 Estimated GFR > 60 Random Glucose 106 (60-115) mg/dL Calcium 9.4 (8.4-10.2) mg/dL Total Bilirubin 0.2 (0.0-1.0) mg/dL AST 19 (5-31) U/L ALT 13 (0-31) U/L Alkaline Phosphatase 125 H (39-117) U/L Troponin I High Sens < 2.7 (<3.5-17.0) ng/L Total Protein 7.2 (6.5-8.0) g/dL Albumin 4.3 (3.5-5.0) g/dL Independent Interpretation I performed an independent interpretation of an: EKG and Plain X-Ray (normal ) Interpretation: Rate: 97 Rhythm: NSR [place]: normal Normal P waves. Normal [place]. Normal QRS complex. ST T wave : normal no [place] qTC: normal prior studies: no acute ischemia The study has been interpreted contemporaneously by me. . Radiology Impression Discussion of test interpretation with radiology: I have reviewed the radiologist's reading. External Record Review External record reviewed: Inpatient record Prescription Management I considered prescription management with: Antibiotic Discharge Plan Discharge Clinical Impression: Atypical chest pain Patient Disposition: Home, Self-Care Instructions: Chest Pain (ED) Additional Instructions: normal heart tests, normal blood clot tests, normal EKG possible start of pneumonia right lower lung will start on doxycycline - return for vomiting, fevers, worsening pain, difficulty breathing or any other concerns. On doxycycline, do not take pills immediately before going to bed and swallow pills with plenty of water. Avoid direct sunlight, iron, antacids, and Pepto Bismol. Call your provider if you develop new ringing in your ears, new problems hearing, dizziness, difficulty swallowing, rash, abdominal discomfort, nausea, or diarrhea.? Prescriptions: New doxycycline hyclate 100 mg capsule 100 mg PO BID 7 Days Qty: 14 0RF No Action metformin 500 mg tablet 500 mg PO BID pantoprazole 40 mg tablet,delayed release (DR/EC) 40 mg PO DAILY montelukast 10 mg tablet 10 mg PO DAILY lisinopril 5 mg tablet 5 mg PO DAILY mirtazapine 15 mg tablet 7.5 mg PO DAILY fluoxetine 40 mg capsule 80 mg PO QAM atorvastatin 10 mg tablet 10 mg PO DAILY trazodone 150 mg tablet 150 mg PO BEDTIME benztropine 1 mg tablet 1 mg PO BID albuterol sulfate [Ventolin HFA] 90 mcg/actuation HFA aerosol inhaler 2 puff inhalation QID PRN (Reason: Shortness Of Breath Or Wheezing) nitrofurantoin monohyd/m-cryst [Macrobid] 100 mg capsule 100 mg PO BID Qty: 20 0RF Rx Instructions: must administer with a meal/food cefuroxime axetil 250 mg tablet 250 mg PO BID 10 Days Qty: 20 0RF fluphenazine HCl 5 mg tablet 5 mg PO BID prazosin 2 mg capsule 4 mg PO BEDTIME lorazepam 0.5 mg tablet 0.5 mg PO DAILY PRN (Reason: Anxiety) naproxen sodium 220 mg Tablet 220 mg PO BID PRN (Reason: Pain)
[2023-08-21 19:11] LABS: Basophils Percent Auto 0.5 % (0-2); Eosinophils Absolute Auto 0.3 X10*3/uL (0.0-0.4); Eosinophils Percent Auto 4.4 % (0-4); Hematocrit 34.5 % (37.0-47.0); Hemoglobin 11.4 g/dl (12.0-16.0); Imm Gran Abs Auto 0.03 X10*3/uL (0.00-0.03); Imm Gran Pct Auto 0.4 % (0.0-0.4); Lymphocytes Absolute Auto 1.8 X10*3/uL (1.2-4.9); Lymphocytes Percent Auto 22.8 % (20-40); Mean Corpuscular Volume 87.8 fL (80.0-98.0); Mean Platelet Volume 9.7 fL (9.4-12.3); Monocytes Absolute Auto 0.6 X10*3/uL (0.1-1.2); Monocytes Percent Auto 8.2 % (2-11); Neutrophils Absolute Auto 4.9 x10*3/uL (2.0-8.3); Neutrophils Percent Auto 63.7 % (45-73); Platelet Count 291 X10*3/uL (160-400); Red Blood Count 3.93 X10*6/uL (4.20-5.50); Red Cell Distribution Width 13.2 % (11.0-16.0); White Blood Count 7.8 X10*3/uL (4.8-10.8)
[2023-08-21 19:24] LABS: Alanine Aminotransferase 13 U/L (0-31); Albumin Level 4.3 g/dL (3.5-5.0); Alkaline Phosphatase 125 U/L (39-117); Anion Gap 17 (12-20); Aspartate Amino Transferase 19 U/L (5-31); Bilirubin Total 0.2 mg/dL (0.0-1.0); Blood Urea Nitrogen 12 mg/dL (9-16); Calcium 9.4 mg/dL (8.4-10.2); Carbon Dioxide 22 mmol/L (22-29); Chloride 106 mmol/L (96-108); Creatinine Clr Calc Pharmacy 102.3; Estimated Glomerular Filt Rate > 60; Glucose Random 106 mg/dL (60-115); Potassium 3.7 mmol/L (3.3-5.1); Sodium 141 mmol/L (135-145); Total Protein 7.2 g/dL (6.5-8.0)
[2023-08-21 19:32] LABS: Troponin-I High Sensitivity < 2.7 ng/L (<3.5-17.0)
--- NOTE | 2023-08-21 22:48 | MHC.EDTECH ---
Gave patient a warm blanket.
[2023-08-21 23:34] LABS: D Dimer High Sensitivity < 150 NG/ML
[2023-08-21 23:37] VITALS: BP 159/85; PULSE 79; RESP 20; TEMP 37.3; O2SAT 97
--- NOTE | 2023-08-22 01:19 | PC.NURSE ---
Assumed care of PT at 2337. Discharge summary and instructions given. PT verbalized understanding
== END 2023-08-22 01:26 | disposition home or self-care (01) ==
PROVIDERS: Emergency Provider Emergency Medicine
DX: R07.89 Other chest pain (principal); E11.9 Type 2 diabetes mellitus without complications; Z79.84 Long term (current) use of oral hypoglycemic drugs; F17.210 Nicotine dependence, cigarettes, uncomplicated
CPT/HCPCS: 36415; 71046; 80053; 84484; 85025; 85379; 93005; 99283; 99284

== ENCOUNTER 2023-08-24 19:08 | Emergency (ER) | payer MEDICARE, MEDICAID, SELFPAY ==
[2023-08-24 19:15] VITALS: BP 130/88; BP 145/91; PULSE 102; PULSE 93; RESP 18; TEMP 36.4; O2SAT 98; O2SAT 99; BMI 34.3
[2023-08-24] MEDS: LORazepam 1 MG TABLET PO (19:39)
--- NOTE | 2023-08-24 19:43 | ED.PSYCH ---
HPI - Psych General Chief Complaint: Psychiatric Symptoms Stated Complaint: SI,HEARING VOICES SAYING TO CUT HERSLEF Source: patient and old records reviewed Mode of arrival: EMS Limitations: no limitations History of Present Illness HPI Narrative: 47 yo female well known to use states she is having SI thoughts and thoughts of self harm to cut herself and OD she denies ingesting or harming herself. MD complaint: suicidal ideation and feels depressed Onset (ago): week(s) Duration: changing over time History of same: Yes Relieving factors: none Exacerbating factors: other Context: significant life stressor Associated psychiatric symptoms: depression and suicidal ideation Associated symptoms: denies other symptoms Treatments prior to arrival: none If self harm: admits thoughts of self harm and has plan Related Data Home Medications Medication Instructions Recorded Confirmed lisinopril 5 mg tablet 5 mg PO DAILY 04/12/23 07/22/23 metformin 500 mg tablet 500 mg PO BID 04/12/23 07/22/23 mirtazapine 15 mg tablet 7.5 mg PO DAILY 04/12/23 07/22/23 montelukast 10 mg tablet 10 mg PO DAILY 04/12/23 07/22/23 pantoprazole 40 mg tablet,delayed 40 mg PO DAILY 04/12/23 07/22/23 release fluphenazine HCl 5 mg tablet 5 mg PO BID 05/09/23 07/22/23 prazosin 2 mg capsule 4 mg PO BEDTIME 05/28/23 07/22/23 albuterol sulfate 90 mcg/actuation 2 puff inhalation QID PRN 06/15/23 07/22/23 aerosol inhaler (Ventolin HFA) Shortness Of Breath Or Wheezing atorvastatin 10 mg tablet 10 mg PO DAILY 06/15/23 07/22/23 benztropine 1 mg tablet 1 mg PO BID 06/15/23 07/22/23 fluoxetine 40 mg capsule 80 mg PO QAM 06/15/23 07/22/23 trazodone 150 mg tablet 150 mg PO BEDTIME 06/15/23 07/22/23 lorazepam 0.5 mg tablet 0.5 mg PO DAILY PRN Anxiety 07/15/23 07/22/23 naproxen sodium 220 mg tablet 220 mg PO BID PRN Pain 07/15/23 07/22/23 Previous Rx's Medication Instructions Recorded cefuroxime axetil 250 mg tablet 250 mg PO BID 10 days #20 tabs 07/23/23 nitrofurantoin 100 mg PO BID #20 caps 07/23/23 monohydrate/macrocrystals 100 mg capsule (Macrobid) doxycycline hyclate 100 mg capsule 100 mg PO BID 7 days #14 caps 08/21/23 Allergies Allergy/AdvReac Type Severity Reaction Status Date / Time azithromycin [AZITHROMYCIN] Allergy Severe Rash Verified 07/21/23 12:54 Fish Containing Products Allergy Severe Anaphylaxis Verified 07/21/23 12:54 codeine [Codeine] Allergy Intermediate Rash Verified 07/21/23 12:54 Penicillins Allergy Intermediate Rash Verified 07/21/23 12:54 prednisone [Prednisone] Allergy Intermediate Rash Verified 07/21/23 12:54 Sulfa (Sulfonamide Allergy Intermediate Rash Verified 07/21/23 12:54 Antibiotics) [Sulfa (Sulfonamides)] ziprasidone [From Geodon] Allergy Intermediate dysuria, Verified 07/21/23 12:54 rash Review of Systems Review of Systems: Constitutional : No Fever, No Chills ENT/Mouth : No Ear Pain, No Nasal Congestion, No sore throat Eyes: No Eye Pain, No Swelling, No Redness Cardiovascular : No Chest Pain, No SOB Respiratory : No Cough, No Sputum, No Dyspnea Gastrointestinal : No Nausea, No Vomiting, No Diarrhea, No Hematochezia, No Melena Genitourinary : No Dysuria, No Urinary Frequency, No Hematuria Musculoskeletal : No Myalgias Skin : No Skin Lesions, No rash Neuro : No Weakness, No Numbness, No Paresthesias, No Dizziness, No Headache Psych : positive Anxiety, positive Depression, positive SI no HI, pos AH/VH Heme/Lymph: No Lymphadenopathy Endocrine : No Polyuria, No Polydipsia All other systems reviewed and are negative [facility] Past Medical History Attestation statement: The following information was validated with the patient. Source: old records reviewed Medical History Chest pain Acute anxiety COVID-19 Full body hives Major depression Dizziness Suicide attempt UTI (urinary tract infection) Acetaminophen overdose COVID History of attempted suicide History of non-suicidal self-harm Hypomagnesemia Suicide attempt Suicide attempt by acetaminophen overdose Acetaminophen overdose Depression MDD (major depressive disorder), recurrent episode, severe Diabetes type 2, controlled Borderline personality disorder PTSD (post-traumatic stress disorder) Overdose GERD (gastroesophageal reflux disease) Mood disorder Hyperlipidemia Bronchitis Social History Social History Household Members: Other Household Members Other:: long-term Housing: Assisted Living Facility Housing Other:: long-term Do you presently have visiting nurse or other home services: No Unable to assess alcohol history related to: Unknown Alcohol intake: current Alcohol intake frequency: does not drink Patient Tobacco Use Status: Current everyday Tobacco user Tobacco use type: Cigarette Cigarette Packs Per Day: 1 Cigarettes Per Day: 20.0 Years Smoked: 22 Smoked in Last 30 Days: Yes e-Cigarette/Vaping Use: Never Used Second Hand Smoke Exposure: Yes Use of substances other than those prescribed or required for medical reasons: No Substance Use Type: Marijuana Advance Directives: No Advance Directives Information Provided: No Patient : No service: No Current occupational status: unemployed and disabled Sexual orientation: Straight/Heterosexual Physical Exam Vital Signs: Vital Signs: Last Vital Signs Temp 97.5 F 08/24/23 19:15 Pulse 93 08/24/23 19:15 Resp 18 08/24/23 19:15 BP 145/91 H 08/24/23 19:15 Pulse Ox 99 08/24/23 19:15 O2 Del Method Room Air 08/24/23 19:15 BMI result Body Mass Index 34.3 Appearance: Alert. Oriented X3. No acute distress. Eyes: Pupils equal, round and reactive to light. ENT: Pharynx normal. Neck: Normal inspection. Neck supple. CVS: Normal heart rate and rhythm. Pulses normal. Respiratory: No respiratory distress. Breath sounds normal. Abdomen: Soft and nontender. Skin: Skin warm and dry. Normal skin color. Normal skin turgor. Extremities: No lower extremity edema. No calf ttp Neuro: Oriented X 3. No motor deficit. No sensory deficit. CN2-12 intact Medications Administered Discontinued Medications Generic Name Dose Route Start Last Admin Trade Name Freq PRN Reason Stop Dose Admin Lorazepam 1 mg 08/24/23 19:10 08/24/23 19:39 Lorazepam 1 Mg Tablet PO 08/24/23 19:11 1 mg ONCE ONE Administration Medical Decision Making Medical Decision Making MDM Narrative: 47 yo female with hx of SI attempts in past but also chronic SI at this time will need CARE team consult she has no medical complaints, typical presentation for patient Differential Diagnosis Differential Diagnoses: The differential diagnosis associated with the presentation includes borderline personality disorder, chronic SI, SI Admission/Observation Consideration of admission/observation: Escalation of care including admission/observation considered patient feels better after ativan and wants to go home, chronic SI stable for DC at this time Lab Data MDM Lab Attestation statement: I reviewed the patient's lab results. Labs: Lab Results 08/24/23 Range/Units 19:28 COVID-19 (NICK) Negative (Negative) COVID-19 Clin Com See Note Independent Historian Clinical information obtained from an independent historian. History obtained from or confirmed by: EMS External Record Review External record reviewed: Inpatient record Discharge Plan Discharge Clinical Impression: Suicidal ideation Patient Disposition: Home, Self-Care Instructions: Suicide Prevention (ED) Additional Instructions: go home and rest. if you have any thoughts of self harm call 911 and please return. Prescriptions: No Action metformin 500 mg tablet 500 mg PO BID pantoprazole 40 mg tablet,delayed release (DR/EC) 40 mg PO DAILY montelukast 10 mg tablet 10 mg PO DAILY lisinopril 5 mg tablet 5 mg PO DAILY mirtazapine 15 mg tablet 7.5 mg PO DAILY fluoxetine 40 mg capsule 80 mg PO QAM atorvastatin 10 mg tablet 10 mg PO DAILY trazodone 150 mg tablet 150 mg PO BEDTIME benztropine 1 mg tablet 1 mg PO BID albuterol sulfate [Ventolin HFA] 90 mcg/actuation HFA aerosol inhaler 2 puff inhalation QID PRN (Reason: Shortness Of Breath Or Wheezing) nitrofurantoin monohyd/m-cryst [Macrobid] 100 mg capsule 100 mg PO BID Qty: 20 0RF Rx Instructions: must administer with a meal/food cefuroxime axetil 250 mg tablet 250 mg PO BID 10 Days Qty: 20 0RF doxycycline hyclate 100 mg capsule 100 mg PO BID 7 Days Qty: 14 0RF fluphenazine HCl 5 mg tablet 5 mg PO BID prazosin 2 mg capsule 4 mg PO BEDTIME lorazepam 0.5 mg tablet 0.5 mg PO DAILY PRN (Reason: Anxiety) naproxen sodium 220 mg Tablet 220 mg PO BID PRN (Reason: Pain) Interventions: [place]-Suicide Risk Severity Scale Last Done: 08/24/23 19:25
[2023-08-24 20:16] LABS: COVID-19 Test Negative (Negative); IDNOW Serial# 08D9AD1C
--- NOTE | 2023-08-24 21:13 | PC.NURSE ---
pt requesting d/c, says she will be safe. denies SI at this time
[2023-08-24 21:23] LABS: Appearance Urine Cloudy; Color Urine Yellow; Glucose Urine UA Negative (Negative); Leukocyte Esterase Urine Large (3+) (Negative); Nitrite Urine Negative (Negative); PH 5.5 (5.0-9.0); Specific Gravity - Urine <= 1.005 (1.005-1.025); UMIC TRIGGER UACC YES; Urine Blood Negative (Negative); Urine Ketones Negative (Negative); Urine Protein Negative (Neg-Trace)
[2023-08-24 21:29] LABS: Amphetamine Screen Urine Not Detected (Not Detect); Barbiturates, Urine Not Detected (Not Detect); Benzodiazepines Screen Urine Not Detected (Not Detect); Cannabinoid Screen Urine Not Detected (Not Detect); Cocaine Screen Urine Not Detected (Not Detect); Fentanyl, urine Not Detected (Not Detect); Opiate Screen Urine Not Detected (Not Detect); Phencyclidine Screen Urine Not Detected (Not Detect)
[2023-08-24 21:43] LABS: Bacteria Urine 2+ (None Seen); Hyaline Casts Urine 0-2 /LPF (0-2); RBC Urine 0-2 /HPF (0-2); UACC Culture Trigger YES; WBC Urine >50 /HPF (0-5)
== END 2023-08-24 21:54 | disposition home or self-care (01) ==
PROVIDERS: Emergency Provider Emergency Medicine; PCP Nurse Practitioner Family
DX: F33.1 Major depressive disorder, recurrent, moderate (principal); R45.851 Suicidal ideations; Z11.52 Encounter for screening for COVID-19; Z20.822 Contact with and (suspected) exposure to COVID-19; Z79.899 Other long term (current) drug therapy; F17.210 Nicotine dependence, cigarettes, uncomplicated; Z71.6 Tobacco abuse counseling
CPT/HCPCS: 80307; 81001; 87086; 87635; 99284

== ENCOUNTER 2023-08-25 15:40 | Emergency (ER) | payer MEDICARE, MEDICAID, SELFPAY ==
[2023-08-25 15:54] VITALS: BP 157/93; PULSE 99; RESP 18; TEMP 36.4; O2SAT 97; BMI 42.9
--- NOTE | 2023-08-25 16:00 | PC.NURSE ---
Patient was BIBA after discharging from ED this morning, returned home and put multiple superficial cuts on her left forearm. Patient is reporting SI and AH stating she wants to be with my mom. It's her anniversary and I want to be with her. meter installer and remover completed. Belongings in locker 8. Labs pending.
[2023-08-25 16:15] LABS: Urine Pregnancy NEGATIVE (NEGATIVE)
[2023-08-25 16:16] LABS: Appearance Urine Clear; Color Urine Yellow; Glucose Urine UA Negative (Negative); Leukocyte Esterase Urine Negative (Negative); Nitrite Urine Negative (Negative); PH 5.5 (5.0-9.0); UPreg QC Valid YES; Urine Blood Negative (Negative); Urine Ketones Negative (Negative); Urine Protein Negative (Neg-Trace)
[2023-08-25 16:20] LABS: Bacteria Urine 1+ (None Seen); Hyaline Casts Urine 0-2 /LPF (0-2); RBC Urine 0-2 /HPF (0-2); WBC Urine 0-5 /HPF (0-5)
[2023-08-25 16:20] LABS: MANUAL DIFF FLAG NO
[2023-08-25 16:24] LABS: Basophils Percent Auto 0.4 % (0-2); Eosinophils Absolute Auto 0.3 X10*3/uL (0.0-0.4); Eosinophils Percent Auto 3.7 % (0-4); Hematocrit 35.6 % (37.0-47.0); Hemoglobin 11.5 g/dl (12.0-16.0); Imm Gran Abs Auto 0.04 X10*3/uL (0.00-0.03); Imm Gran Pct Auto 0.5 % (0.0-0.4); Lymphocytes Absolute Auto 1.8 X10*3/uL (1.2-4.9); Lymphocytes Percent Auto 25.1 % (20-40); Mean Corpuscular HGB Conc 32.3 g/dl (31.0-35.0); Mean Corpuscular Hemoglobin 28.4 pg (27.0-33.0); Mean Corpuscular Volume 87.9 fL (80.0-98.0); Mean Platelet Volume 9.8 fL (9.4-12.3); Monocytes Absolute Auto 0.6 X10*3/uL (0.1-1.2); Monocytes Percent Auto 8.8 % (2-11); Neutrophils Absolute Auto 4.5 x10*3/uL (2.0-8.3); Neutrophils Percent Auto 61.5 % (45-73); Platelet Count 274 X10*3/uL (160-400); Red Blood Count 4.05 X10*6/uL (4.20-5.50); Red Cell Distribution Width 13.2 % (11.0-16.0); White Blood Count 7.3 X10*3/uL (4.8-10.8)
[2023-08-25 16:31] LABS: Amphetamine Screen Urine Not Detected (Not Detect); Barbiturates, Urine Not Detected (Not Detect); Benzodiazepines Screen Urine Not Detected (Not Detect); Cannabinoid Screen Urine Not Detected (Not Detect); Cocaine Screen Urine Not Detected (Not Detect); Fentanyl, urine Not Detected (Not Detect); Opiate Screen Urine Not Detected (Not Detect); Phencyclidine Screen Urine Not Detected (Not Detect)
[2023-08-25 16:39] LABS: Alanine Aminotransferase 17 U/L (0-31); Albumin Level 4.1 g/dL (3.5-5.0); Alkaline Phosphatase 106 U/L (39-117); Anion Gap 14 (12-20); Aspartate Amino Transferase 18 U/L (5-31); Bilirubin Total 0.2 mg/dL (0.0-1.0); Blood Urea Nitrogen 16 mg/dL (9-16); Calcium 9.1 mg/dL (8.4-10.2); Carbon Dioxide 25 mmol/L (22-29); Chloride 106 mmol/L (96-108); Creatinine Clr Calc Pharmacy 118.4; Estimated Glomerular Filt Rate > 60; Ethanol < 10 mg/dL; Glucose Random 113 mg/dL (60-115); Sodium 141 mmol/L (135-145)
[2023-08-25 16:40] LABS: Acetaminophen LAB < 3 mcg/mL (<30); Salicylate < 5.0 mg/dL (15-30)
--- NOTE | 2023-08-25 17:13 | ED_ITS ---
HPI - Psych General Chief Complaint: Psychiatric Symptoms Stated Complaint: audible hallucinations Time Seen by Provider: 08/25/23 16:59 Source: patient, EMS and RN notes reviewed Mode of arrival: EMS History of Present Illness HPI Narrative: Patient is a 47-year-old female with history of PTSD, depression, T2 dm, borderline personality disorder, history of self-harm presenting to the emergency department with report of auditory hallucinations telling her to hurt herself, states that she made cuts to her forearms prior to arrival. States that the anniversary of her mother's passing is on Thanksgiving and this has triggered her PTSD. Denies any homicidal ideation or visual hallucinations. Patient was seen in this ED yesterday and discharged back to senior living. MD complaint: suicidal ideation, feels depressed, hallucinations and other (Self-harm behavior) Onset (ago): hour(s) Duration: constant History of same: Yes Relieving factors: none Exacerbating factors: none Context: significant life stressor Associated psychiatric symptoms: depression, suicidal ideation and auditory hallucinations Associated symptoms: denies other symptoms Treatments prior to arrival: none If self harm: admits thoughts of self harm and self-inflicted trauma Related Data Home Medications Medication Instructions Recorded Confirmed trazodone 150 mg tablet 150 mg PO BEDTIME 06/15/23 08/25/23 benztropine 1 mg tablet 1 mg PO BID 08/25/23 08/25/23 buspirone 10 mg tablet 10 mg PO BID 08/25/23 08/25/23 doxycycline hyclate 100 mg capsule 100 mg PO BID 08/25/23 08/25/23 fluoxetine 40 mg capsule 80 mg PO DAILY 08/25/23 08/25/23 lisinopril 5 mg tablet 5 mg PO DAILY 08/25/23 08/25/23 mirtazapine 7.5 mg tablet 7.5 mg PO BEDTIME 08/25/23 08/25/23 montelukast 10 mg tablet 10 mg PO DAILY 08/25/23 08/25/23 naproxen 375 mg tablet 375 mg PO BID 08/25/23 08/25/23 pantoprazole 40 mg tablet,delayed 40 mg PO DAILY 08/25/23 08/25/23 release prazosin 2 mg capsule 2 mg PO BID 08/25/23 08/25/23 Allergies Allergy/AdvReac Type Severity Reaction Status Date / Time azithromycin [AZITHROMYCIN] Allergy Severe Rash Verified 07/21/23 12:54 Fish Containing Products Allergy Severe Anaphylaxis Verified 07/21/23 12:54 codeine [Codeine] Allergy Intermediate Rash Verified 07/21/23 12:54 Penicillins Allergy Intermediate Rash Verified 07/21/23 12:54 prednisone [Prednisone] Allergy Intermediate Rash Verified 07/21/23 12:54 Sulfa (Sulfonamide Allergy Intermediate Rash Verified 07/21/23 12:54 Antibiotics) [Sulfa (Sulfonamides)] ziprasidone [From Geodon] Allergy Intermediate dysuria, Verified 07/21/23 12:54 rash Review of Systems 2 Review of Systems: As per HPI. Yes all other systems are reviewed and are negative PMFSH Past Medical History Medical History Chest pain Acute anxiety COVID-19 Full body hives Major depression Dizziness Suicide attempt UTI (urinary tract infection) Acetaminophen overdose COVID History of attempted suicide History of non-suicidal self-harm Hypomagnesemia Suicide attempt Suicide attempt by acetaminophen overdose Acetaminophen overdose Depression MDD (major depressive disorder), recurrent episode, severe Diabetes type 2, controlled Borderline personality disorder PTSD (post-traumatic stress disorder) Overdose GERD (gastroesophageal reflux disease) Mood disorder Hyperlipidemia Bronchitis Social History Social History Household Members: Other Household Members Other:: senior living Housing: Assisted Living Facility Housing Other:: senior living Do you presently have visiting nurse or other home services: No Unable to assess alcohol history related to: Unknown Alcohol intake: current Alcohol intake frequency: does not drink Patient Tobacco Use Status: Current everyday Tobacco user Tobacco use type: Cigarette Cigarette Packs Per Day: 1 Cigarettes Per Day: 20.0 Years Smoked: 22 e-Cigarette/Vaping Use: Never Used Second Hand Smoke Exposure: Yes Substance Use Type: Marijuana Advance Directives: No Advance Directives Information Provided: No Guardian: No service: No Current occupational status: unemployed and disabled Sexual orientation: Straight/Heterosexual Physical Exam 2 Vital Signs: Vital Signs: Last Vital Signs Temp 97.6 F 08/25/23 15:54 Pulse 99 08/25/23 15:54 Resp 16 08/25/23 17:27 BP 157/93 H 08/25/23 15:54 Pulse Ox 97 08/25/23 15:54 O2 Del Method Room Air 08/25/23 15:54 BMI result Body Mass Index 42.9 Vital signs have been reviewed and appear to be correct. Blood pressure elevated. Heart rate normal. Respiratory rate normal. Temperature normal. Oxygen saturation normal. Const: General: cooperative, no acute distress, alert and awake O rientation/consciousness: patient oriented x3 HEENT: Head: Yes normocephalic and Yes atraumatic Ears: hearing grossly normal bilaterally and external ears normal General nose exam: Normal external nose present Face and sinus: Yes normal facial exam Mouth: Normal oral and palatal mucosa present Eyes: Pupils: Equal, round and reactive pupils present Neck: Neck: Yes normal visual inspection, Yes full ROM and Yes supple Resp: Effort & Inspection: normal respiratory effort Auscultation: clear to auscultation bilaterally Cardio: Rate: regular rate Rhythm: regular rhythm Heart sounds: S1 normal heart sound present and S2 normal heart sound present Skin: General skin exam: elasticity normal, turgor normal and scars (bilateral arms and legs from self-inflicted injuries) Trauma: laceration left anterior forearm linear (Multiple, superficial); not actively bleeding Neuro: General: patient oriented x3 Cranial nerves: Yes Equal, round and reactive pupils present Medical Decision Making Medical Decision Making MDM Narrative: Patient is a 47-year-old female with history of PTSD, depression, T2 dm, borderline personality disorder, history of self-harm presenting to the emergency department with report of auditory hallucinations telling her to hurt herself, states that she made cuts to her forearms prior to arrival. On exam patient is awake, A+Ox3,BP elevated, VS otherwise WNL, afebrile, normal neurological exam without focal deficits, physical exam findings as above. Given reported symptoms and physical exam findings, initial differential includes anxiety, depression, hallucinations. Labs and urine unremarkable, no evidence of ingestion. Patient medically cleared for CARE team evaluation, will place on physician observation pending CARE team eval. CARE team evaluated patient, recommendation is discharge back to senior living, feel patient is at baseline. Differential Diagnosis Differential Diagnoses: The differential diagnosis associated with the presentation includes As per MDM. Admission/Observation Consideration of admission/observation: Escalation of care including admission/observation considered Consult Healthcare Provider Management of the patient was discussed with: Behavioral Health Provider Lab Data [facility] Lab Attestation statement: I reviewed the patient's lab results. As per MDM. 08/25/23 16:14 08/25/23 16:14 Labs: Lab Results 08/25/23 08/25/23 Range/Units 16:05 16:14 WBC 7.3 (4.8-10.8) X10*3/uL RBC 4.05 L (4.20-5.50) X10*6/uL Hgb 11.5 L (12.0-16.0) g/dl Hct 35.6 L (37.0-47.0) % MCV 87.9 (80.0-98.0) fL MCH 28.4 (27.0-33.0) pg MCHC 32.3 (31.0-35.0) g/dl RDW 13.2 (11.0-16.0) % Plt Count 274 (160-400) X10*3/uL MPV 9.8 (9.4-12.3) fL Immature Gran % (Auto) 0.5 H (0.0-0.4) % Neut % (Auto) 61.5 (45-73) % Lymph % (Auto) 25.1 (20-40) % [place] % (Auto) 8.8 (2-11) % Eos % (Auto) 3.7 (0-4) % Baso % (Auto) 0.4 (0-2) % Lymph # (Auto) 1.8 (1.2-4.9) X10*3/uL [place] # (Auto) 0.6 (0.1-1.2) X10*3/uL Eos # (Auto) 0.3 (0.0-0.4) X10*3/uL Baso # (Auto) 0.0 (0.0-0.2) X10*3/uL Abs Immat Gran (auto) 0.04 H (0.00-0.03) X10*3/uL Absolute Neuts (auto) 4.5 (2.0-8.3) x10*3/uL Absolute Nucleated RBC 0.000 (0.0-0.012) X10*3/uL Nucleated RBC % (auto) 0.0 (0.0-0.2) /100WBC Sodium 141 (135-145) mmol/L Potassium 4.0 (3.3-5.1) mmol/L Chloride 106 (96-108) mmol/L Carbon Dioxide 25 (22-29) mmol/L Anion Gap 14 (12-20) BUN 16 (9-16) mg/dL Creatinine 0.74 (0.5-1.4) mg/dL Estim Creat Clear Calc 118.4 Estimated GFR > 60 Random Glucose 113 (60-115) mg/dL Calcium 9.1 (8.4-10.2) mg/dL Total Bilirubin 0.2 (0.0-1.0) mg/dL AST 18 (5-31) U/L ALT 17 (0-31) U/L Alkaline Phosphatase 106 (39-117) U/L Total Protein 7.0 (6.5-8.0) g/dL Albumin 4.1 (3.5-5.0) g/dL Urine Color Yellow Urine Appearance Clear Urine pH 5.5 (5.0-9.0) Ur Specific [place] 1.010 (1.005-1.025) Urine Protein Negative (Neg-Trace) mg/dL Urine Glucose (UA) Negative (Negative) mg/dL Urine Ketones Negative (Negative) mg/dL Urine Blood Negative (Negative) Urine Nitrite Negative (Negative) Ur Leukocyte Esterase Negative (Negative) Urine RBC 0-2 (0-2) /HPF Urine WBC 0-5 (0-5) /HPF Ur Squamous Epith Cells 11-20 (0-2) /HPF Urine Bacteria 1+ (None Seen) Hyaline Casts 0-2 (0-2) /LPF Urine Test NEGATIVE (NEGATIVE) Salicylates < 5.0 L (15-30) mg/dL Urine Opiates Screen Not Detected (Not Detect) Urine Fentanyl Screen Not Detected (Not Detect) Acetaminophen < 3 (<30) mcg/mL Ur Barbiturates Screen Not Detected (Not Detect) Ur Phencyclidine Scrn Not Detected (Not Detect) Ur Amphetamines Screen Not Detected (Not Detect) U Benzodiazepines Scrn Not Detected (Not Detect) Urine Cocaine Screen Not Detected (Not Detect) U Marijuana (THC) Screen Not Detected (Not Detect) Ethyl Alcohol < 10 mg/dL External Record Review External record reviewed: Inpatient record, Office record and Outpatient record Discharge Plan Discharge Clinical Impression: PTSD (post-traumatic stress disorder) Patient Disposition: Home, Self-Care Additional Instructions: If you have thoughts of self harm, please notify a staff member at your senior living or call 911. Take your medications as prescribed. Prescriptions: No Action trazodone 150 mg tablet 150 mg PO BEDTIME fluoxetine 40 mg capsule 80 mg PO DAILY doxycycline hyclate 100 mg capsule 100 mg PO BID naproxen 375 mg tablet 375 mg PO BID pantoprazole 40 mg tablet,delayed release (DR/EC) 40 mg PO DAILY buspirone 10 mg tablet 10 mg PO BID benztropine 1 mg tablet 1 mg PO BID montelukast 10 mg tablet 10 mg PO DAILY lisinopril 5 mg tablet 5 mg PO DAILY prazosin 2 mg capsule 2 mg PO BID mirtazapine 7.5 mg tablet 7.5 mg PO BEDTIME Interventions: Clinch-Suicide Risk Severity Scale Last Done: 08/25/23 17:27
[2023-08-25 17:27] VITALS: RESP 16
== END 2023-08-25 18:50 | disposition home or self-care (01) ==
PROVIDERS: Emergency Provider Student in an Organized Health Care Education/Training Program; PCP Nurse Practitioner Family
DX: F43.10 Post-traumatic stress disorder, unspecified (principal); R44.0 Auditory hallucinations; R45.851 Suicidal ideations; F31.9 Bipolar disorder, unspecified; F60.3 Borderline personality disorder; F41.9 Anxiety disorder, unspecified; E11.9 Type 2 diabetes mellitus without complications; E78.5 Hyperlipidemia, unspecified; D64.9 Anemia, unspecified; K21.9 Gastro-esophageal reflux disease without esophagitis; F17.210 Nicotine dependence, cigarettes, uncomplicated; F12.90 Cannabis use, unspecified, uncomplicated; E66.9 Obesity, unspecified; Z68.41 Body mass index [BMI] 40.0-44.9, adult; Z91.51 Personal history of suicidal behavior; Z91.52 Personal history of nonsuicidal self-harm; Z79.84 Long term (current) use of oral hypoglycemic drugs; Z79.899 Other long term (current) drug therapy; Z79.02 Long term (current) use of antithrombotics/antiplatelets
CPT/HCPCS: 36415; 80053; 80143; 80179; 80307; 81001; 81025; 85025; 99284; 99285; S9485

== ENCOUNTER 2023-08-29 19:35 | Emergency (ER) | payer MEDICARE, MEDICAID, SELFPAY ==
--- NOTE | ~2023-08-29 | XR_ITS ---
EXAMINATION: XR CHEST 2 VIEWS CLINICAL INFORMATION: Shortness of breath and wheezing. COMPARISON: Chest radiographs dated 08/21/2023. TECHNIQUE: Frontal and lateral views of the chest were obtained. FINDINGS: The heart, great vessels, pulmonary vasculature and mediastinum are normal. The lungs show no focal infiltrate, effusion or pneumothorax. There is mild elevation of the right hemidiaphragm. There is no acute osseous abnormality. XR/XR chest 1V IMPRESSION: No active cardiopulmonary disease.
[2023-08-29 19:39] VITALS: BP 130/80; PULSE 105; O2SAT 98
[2023-08-29 19:45] VITALS: BP 139/88; PULSE 103; RESP 28; TEMP 36.8; O2SAT 97; BMI 38.8
--- NOTE | 2023-08-29 20:11 | ECG_ITS ---
Test Reason : SOB Blood Pressure : / mmHG Vent. Rate : 090 BPM Atrial Rate : 090 BPM P-R Int : 180 ms QRS Dur : 080 ms QT Int : 370 ms P-R-T Axes : 043 046 054 degrees QTc Int : 452 ms Normal sinus rhythm Normal ECG When compared with ECG of 21-AUG-2023 19:11, No significant change was found Referred By: Generic ED Physician Electronically Signed By:JAMAL RODRIGUEZ MD
--- NOTE | 2023-08-29 20:32 | MHC.EDTECH ---
Patient ekg taken and was read by Provider ,blood drawn and sent to lab .
[2023-08-29 20:34] LABS: MANUAL DIFF FLAG NO
[2023-08-29 20:37] LABS: Basophils Percent Auto 0.5 % (0-2); Eosinophils Absolute Auto 0.2 X10*3/uL (0.0-0.4); Eosinophils Percent Auto 3.3 % (0-4); Hematocrit 33.9 % (37.0-47.0); Hemoglobin 10.9 g/dl (12.0-16.0); Imm Gran Abs Auto 0.04 X10*3/uL (0.00-0.03); Imm Gran Pct Auto 0.5 % (0.0-0.4); Lymphocytes Percent Auto 27.4 % (20-40); Mean Corpuscular HGB Conc 32.2 g/dl (31.0-35.0); Mean Corpuscular Hemoglobin 28.5 pg (27.0-33.0); Mean Corpuscular Volume 88.7 fL (80.0-98.0); Mean Platelet Volume 9.8 fL (9.4-12.3); Monocytes Absolute Auto 0.7 X10*3/uL (0.1-1.2); Monocytes Percent Auto 8.8 % (2-11); Neutrophils Absolute Auto 4.4 x10*3/uL (2.0-8.3); Neutrophils Percent Auto 59.5 % (45-73); Platelet Count 264 X10*3/uL (160-400); Red Blood Count 3.82 X10*6/uL (4.20-5.50); Red Cell Distribution Width 13.4 % (11.0-16.0); White Blood Count 7.4 X10*3/uL (4.8-10.8)
--- NOTE | 2023-08-29 20:39 | PC.NURSE ---
pt resting comfortably, no increased work of breathing noted, speaking in full sentences
--- NOTE | 2023-08-29 20:46 | ED.SOB ---
HPI - SOB/Dyspnea General Chief Complaint: Dyspnea Stated Complaint: SOB Time Seen by Provider: 08/29/23 20:46 Source: patient Mode of arrival: EMS Limitations: no limitations History of Present Illness HPI Narrative: Patient history of COPD been wheezing lately prescribed Advair inhaler but unable to get it surgery 93% at room air patient is smoker no fever no chills no chest pain or palpitation Related Data Home Medications Medication Instructions Recorded Confirmed trazodone 150 mg tablet 150 mg PO BEDTIME 06/15/23 08/25/23 benztropine 1 mg tablet 1 mg PO BID 08/25/23 08/25/23 buspirone 10 mg tablet 10 mg PO BID 08/25/23 08/25/23 doxycycline hyclate 100 mg capsule 100 mg PO BID 08/25/23 08/25/23 fluoxetine 40 mg capsule 80 mg PO DAILY 08/25/23 08/25/23 lisinopril 5 mg tablet 5 mg PO DAILY 08/25/23 08/25/23 mirtazapine 7.5 mg tablet 7.5 mg PO BEDTIME 08/25/23 08/25/23 montelukast 10 mg tablet 10 mg PO DAILY 08/25/23 08/25/23 naproxen 375 mg tablet 375 mg PO BID 08/25/23 08/25/23 pantoprazole 40 mg tablet,delayed 40 mg PO DAILY 08/25/23 08/25/23 release prazosin 2 mg capsule 2 mg PO BID 08/25/23 08/25/23 Previous Rx's Medication Instructions Recorded albuterol sulfate 90 mcg/actuation 2 puff inhalation Q4-6H PRN 08/30/23 aerosol inhaler (ProAir HFA) shortness of breath or wheezing #8.5 grams dexamethasone 4 mg tablet 4 mg PO DAILY #5 tabs 08/30/23 Allergies Allergy/AdvReac Type Severity Reaction Status Date / Time azithromycin [AZITHROMYCIN] Allergy Severe Rash Verified 07/21/23 12:54 Fish Containing Products Allergy Severe Anaphylaxis Verified 07/21/23 12:54 codeine [Codeine] Allergy Intermediate Rash Verified 07/21/23 12:54 Penicillins Allergy Intermediate Rash Verified 07/21/23 12:54 prednisone [Prednisone] Allergy Intermediate Rash Verified 07/21/23 12:54 Sulfa (Sulfonamide Allergy Intermediate Rash Verified 07/21/23 12:54 Antibiotics) [Sulfa (Sulfonamides)] ziprasidone [From Geodon] Allergy Intermediate dysuria, Verified 07/21/23 12:54 rash Review of Systems Review of Systems: Yes all other systems are reviewed and are negative [facility] Past Medical History Medical History Chest pain Acute anxiety COVID-19 Full body hives Major depression Dizziness Suicide attempt UTI (urinary tract infection) Acetaminophen overdose COVID History of attempted suicide History of non-suicidal self-harm Hypomagnesemia Suicide attempt Suicide attempt by acetaminophen overdose Acetaminophen overdose Depression MDD (major depressive disorder), recurrent episode, severe Diabetes type 2, controlled Borderline personality disorder PTSD (post-traumatic stress disorder) Overdose GERD (gastroesophageal reflux disease) Mood disorder Hyperlipidemia Bronchitis Social History Social History Household Members: Other Household Members Other:: half-way Housing: Assisted Living Facility Housing Other:: half-way Do you presently have visiting nurse or other home services: No Unable to assess alcohol history related to: Unknown Alcohol intake: current Alcohol intake frequency: does not drink Patient Tobacco Use Status: Current everyday Tobacco user Tobacco use type: Cigarette Cigarette Packs Per Day: 1 Cigarettes Per Day: 20.0 Years Smoked: 22 Smoked in Last 30 Days: Yes e-Cigarette/Vaping Use: Never Used Second Hand Smoke Exposure: Yes Use of substances other than those prescribed or required for medical reasons: No Substance Use Type: Marijuana Advance Directives: No Advance Directives Information Provided: No service: No Current occupational status: unemployed and disabled Sexual orientation: Straight/Heterosexual Physical Exam Vital Signs: Vital Signs: Last Vital Signs Temp 98.1 F 08/29/23 23:36 Pulse 87 08/29/23 23:36 Resp 16 08/29/23 23:36 BP 134/90 H 08/29/23 23:36 Pulse Ox 94 08/29/23 23:36 O2 Del Method Room Air 08/29/23 23:36 BMI result Body Mass Index 38.8 Appearance: Alert. Oriented X3. No acute distress. Eyes: PERRLA, No Nystagmus ENT: Pharynx normal. Oral Mucosa moist Neck: Normal inspection. Neck supple. CVS: Normal heart rate and rhythm. Pulses normal. Respiratory: No respiratory distress. Equal air entry bilateral, bilateral rhonchi Abdomen: Soft and nontender. Bowel sounds are present, no mass palpable, no CVA tenderness Skin: Skin warm and dry. Normal skin color. Normal skin turgor. Extremities: No lower extremity edema. No calf tenderness Neuro: Oriented X 3. Medications Administered Discontinued Medications Generic Name Dose Route Start Last Admin Trade Name Freq PRN Reason Stop Dose Admin Albuterol Sulfate 2.5 mg/ 5 mg 08/29/23 23:37 08/29/23 23:42 Albuterol Sulfate 2.5 mg INHALE 08/29/23 23:38 5 mg ONCE ONE Administration Albuterol Sulfate 2 puff 08/30/23 00:02 08/30/23 00:11 Albuterol Sulfate 90 Mcg 8 Gm Inhaler INHALE 08/30/23 00:03 2 puff ONCE ONE Administration Dexamethasone 10 mg 08/29/23 21:04 08/29/23 21:30 Dexamethasone 2 Mg Tablet PO 08/29/23 21:05 10 mg ONCE ONE Administration Medical Decision Making Differential Diagnosis Differential Diagnoses: The differential diagnosis associated with the presentation includes Asthma/COPD/bronchitis Admission/Observation Consideration of admission/observation: Escalation of care including admission/observation considered Lab Data MDM Lab Attestation statement: I reviewed the patient's lab results. 08/29/23 20:28 08/29/23 20:29 Labs: Lab Results 08/29/23 08/29/23 Range/Units 20:28 20:29 WBC 7.4 (4.8-10.8) X10*3/uL RBC 3.82 L (4.20-5.50) X10*6/uL Hgb 10.9 L (12.0-16.0) g/dl Hct 33.9 L (37.0-47.0) % MCV 88.7 (80.0-98.0) fL MCH 28.5 (27.0-33.0) pg MCHC 32.2 (31.0-35.0) g/dl RDW 13.4 (11.0-16.0) % Plt Count 264 (160-400) X10*3/uL MPV 9.8 (9.4-12.3) fL Immature Gran % (Auto) 0.5 H (0.0-0.4) % Neut % (Auto) 59.5 (45-73) % Lymph % (Auto) 27.4 (20-40) % [place] % (Auto) 8.8 (2-11) % Eos % (Auto) 3.3 (0-4) % Baso % (Auto) 0.5 (0-2) % Lymph # (Auto) 2.0 (1.2-4.9) X10*3/uL [place] # (Auto) 0.7 (0.1-1.2) X10*3/uL Eos # (Auto) 0.2 (0.0-0.4) X10*3/uL Baso # (Auto) 0.0 (0.0-0.2) X10*3/uL Abs Immat Gran (auto) 0.04 H (0.00-0.03) X10*3/uL Absolute Neuts (auto) 4.4 (2.0-8.3) x10*3/uL Absolute Nucleated RBC 0.000 (0.0-0.012) X10*3/uL Nucleated RBC % (auto) 0.0 (0.0-0.2) /100WBC Sodium 141 (135-145) mmol/L Potassium 3.9 (3.3-5.1) mmol/L Chloride 106 (96-108) mmol/L Carbon Dioxide 24 (22-29) mmol/L Anion Gap 15 (12-20) BUN 11 (9-16) mg/dL Creatinine 0.78 (0.5-1.4) mg/dL Estim Creat Clear Calc 106.1 Estimated GFR > 60 Random Glucose 115 (60-115) mg/dL Calcium 9.2 (8.4-10.2) mg/dL Troponin I High Sens < 2.7 (<3.5-17.0) ng/L Discharge Plan Discharge Clinical Impression: COPD (chronic obstructive pulmonary disease) Patient Disposition: Home, Self-Care Instructions: COPD (Chronic Obstructive Pulmonary Disease) (ED) Additional Instructions: Use the inhaler as prescribed Prednisone as prescribed Prescriptions: New albuterol sulfate [ProAir HFA] 90 mcg/actuation HFA aerosol inhaler 2 puff inhalation Q4-6H PRN (Reason: shortness of breath or wheezing) Qty: 8.5 0RF dexamethasone 4 mg tablet 4 mg PO DAILY Qty: 5 0RF No Action trazodone 150 mg tablet 150 mg PO BEDTIME fluoxetine 40 mg capsule 80 mg PO DAILY doxycycline hyclate 100 mg capsule 100 mg PO BID naproxen 375 mg tablet 375 mg PO BID pantoprazole 40 mg tablet,delayed release (DR/EC) 40 mg PO DAILY buspirone 10 mg tablet 10 mg PO BID benztropine 1 mg tablet 1 mg PO BID montelukast 10 mg tablet 10 mg PO DAILY lisinopril 5 mg tablet 5 mg PO DAILY prazosin 2 mg capsule 2 mg PO BID mirtazapine 7.5 mg tablet 7.5 mg PO BEDTIME
[2023-08-29 20:48] LABS: Anion Gap 15 (12-20); Blood Urea Nitrogen 11 mg/dL (9-16); Calcium 9.2 mg/dL (8.4-10.2); Carbon Dioxide 24 mmol/L (22-29); Chloride 106 mmol/L (96-108); Creatinine Clr Calc Pharmacy 106.1; Estimated Glomerular Filt Rate > 60; Glucose Random 115 mg/dL (60-115); Potassium 3.9 mmol/L (3.3-5.1); Sodium 141 mmol/L (135-145)
[2023-08-29 20:56] LABS: Troponin-I High Sensitivity < 2.7 ng/L (<3.5-17.0)
[2023-08-29] MEDS: dexAMETHasone 2 MG TABLET 10 MG PO (21:30)
[2023-08-29 21:38] VITALS: BP 147/91; PULSE 79; RESP 18; TEMP 37.1; O2SAT 97
--- NOTE | 2023-08-29 21:39 | MHC.EDTECH ---
Patient was incontinent of urine ,bedding change and Pt was given warm wipes to clean up self .
--- NOTE | 2023-08-29 22:52 | PC.NURSE ---
pt resting comfortably with eyes closed, breathing even and unlabored, O2 95%. no apparent distress noted at this time
[2023-08-29 23:36] VITALS: BP 134/90; PULSE 87; RESP 16; TEMP 36.7; O2SAT 94
[2023-08-29] MEDS: Albuterol Sulfate 2.5 MG, Albuterol Sulfate (0.083%) 2.5 MG 5 MG INHALE (23:42)
[2023-08-30] MEDS: Albuterol Sulfate 90 MCG 8 GM INHALER 2 PUFF INHALE (00:11)
--- NOTE | 2023-08-30 00:24 | PC.NURSE ---
message left for half-way regarding pt's d/c and transportation.
[2023-08-30 01:48] VITALS: BP 136/84; PULSE 88; RESP 16; TEMP 36.6; O2SAT 97
[2023-08-30 06:03] VITALS: BP 141/85; PULSE 110; RESP 17; TEMP 37.2; O2SAT 95
--- NOTE | 2023-08-30 06:04 | PC.NURSE ---
yadira called for pt, pt is now awake and alert. changing and feels ready to go home.
== END 2023-08-30 06:09 | disposition home or self-care (01) ==
PROVIDERS: Emergency Provider Internal Medicine; PCP Nurse Practitioner Family
DX: J44.9 Chronic obstructive pulmonary disease, unspecified (principal); R06.02 Shortness of breath; F17.210 Nicotine dependence, cigarettes, uncomplicated; Z71.6 Tobacco abuse counseling; Z79.899 Other long term (current) drug therapy
CPT/HCPCS: 36415; 71045; 80048; 84484; 85025; 93005; 99284; J8540

== ENCOUNTER 2023-08-31 20:27 | Emergency (ER) | payer MEDICARE, MEDICAID, SELFPAY ==
[2023-08-31 20:32] VITALS: BP 141/88; PULSE 97; RESP 17; TEMP 36.4; O2SAT 97; BMI 37.6
[2023-08-31 21:48] LABS: MANUAL DIFF FLAG NO
[2023-08-31 21:49] LABS: Basophils Percent Auto 0.4 % (0-2); Eosinophils Absolute Auto 0.1 X10*3/uL (0.0-0.4); Eosinophils Percent Auto 0.5 % (0-4); Hematocrit 31.5 % (37.0-47.0); Hemoglobin 10.1 g/dl (12.0-16.0); Imm Gran Abs Auto 0.05 X10*3/uL (0.00-0.03); Imm Gran Pct Auto 0.5 % (0.0-0.4); Lymphocytes Absolute Auto 2.6 X10*3/uL (1.2-4.9); Lymphocytes Percent Auto 23.8 % (20-40); Mean Corpuscular HGB Conc 32.1 g/dl (31.0-35.0); Mean Corpuscular Hemoglobin 28.3 pg (27.0-33.0); Mean Corpuscular Volume 88.2 fL (80.0-98.0); Mean Platelet Volume 9.8 fL (9.4-12.3); Monocytes Absolute Auto 0.8 X10*3/uL (0.1-1.2); Monocytes Percent Auto 6.8 % (2-11); Neutrophils Absolute Auto 7.6 x10*3/uL (2.0-8.3); Platelet Count 290 X10*3/uL (160-400); Red Blood Count 3.57 X10*6/uL (4.20-5.50); White Blood Count 11.1 X10*3/uL (4.8-10.8)
[2023-08-31 21:52] LABS: Appearance Urine Cloudy; Color Urine Yellow; Glucose Urine UA Negative (Negative); Leukocyte Esterase Urine Small (1+) (Negative); Nitrite Urine Negative (Negative); PH 5.5 (5.0-9.0); Specific Gravity - Urine 1.015 (1.005-1.025); UMIC TRIGGER UA YES; Urine Blood Negative (Negative); Urine Ketones Negative (Negative); Urine Protein Negative (Neg-Trace)
[2023-08-31 21:53] LABS: UPreg QC Valid YES; Urine Pregnancy NEGATIVE (NEGATIVE)
[2023-08-31 21:56] LABS: Amphetamine Screen Urine Not Detected (Not Detect); Barbiturates, Urine Not Detected (Not Detect); Benzodiazepines Screen Urine Not Detected (Not Detect); Cannabinoid Screen Urine Not Detected (Not Detect); Cocaine Screen Urine Not Detected (Not Detect); Fentanyl, urine Not Detected (Not Detect); Opiate Screen Urine Not Detected (Not Detect); Phencyclidine Screen Urine Not Detected (Not Detect)
[2023-08-31 21:57] LABS: Bacteria Urine 1+ (None Seen); Hyaline Casts Urine 0-2 /LPF (0-2)
[2023-08-31 22:03] LABS: Alanine Aminotransferase 16 U/L (0-31); Alkaline Phosphatase 93 U/L (39-117); Anion Gap 13 (12-20); Aspartate Amino Transferase 18 U/L (5-31); Bilirubin Total 0.2 mg/dL (0.0-1.0); Blood Urea Nitrogen 17 mg/dL (9-16); Calcium 8.7 mg/dL (8.4-10.2); Carbon Dioxide 23 mmol/L (22-29); Chloride 106 mmol/L (96-108); Creatinine Clr Calc Pharmacy 112.5; Estimated Glomerular Filt Rate > 60; Ethanol 10 mg/dL; Glucose Random 119 mg/dL (60-115); Potassium 3.5 mmol/L (3.3-5.1); Sodium 138 mmol/L (135-145); Total Protein 6.6 g/dL (6.5-8.0)
[2023-08-31 22:04] LABS: Acetaminophen LAB < 3 mcg/mL (<30); Salicylate < 5.0 mg/dL (15-30)
--- NOTE | 2023-08-31 23:05 | ED_ITS ---
HPI - Psych General Chief Complaint: Psychiatric Symptoms Stated Complaint: Crisis, pt is having SI thoughts, per ems Time Seen by Provider: 08/31/23 21:01 Source: patient Mode of arrival: EMS Limitations: no limitations History of Present Illness HPI Narrative: Patient comes to the emergency room from a intermediate. Patient states that she has been feeling depressed because the holiday season is coming. Patient admits that when she was in her intermediate, she said that she was feeling suicidal. However, patient states that it was just the moment of thinking about the holidays. However, patient states that she is not suicidal, states that she is looking forward to the Thanksgiving dinner that they have planned for her and her peers. Patient states that she has a very busy week coming up and is looking forward to it. Patient denies homicidal ideation Related Data Home Medications Medication Instructions Recorded Confirmed trazodone 150 mg tablet 150 mg PO BEDTIME 06/15/23 08/31/23 benztropine 1 mg tablet 1 mg PO BID 08/25/23 08/31/23 buspirone 10 mg tablet 10 mg PO BID 08/25/23 08/31/23 fluoxetine 40 mg capsule 80 mg PO DAILY 08/25/23 08/31/23 lisinopril 5 mg tablet 5 mg PO DAILY 08/25/23 08/31/23 mirtazapine 7.5 mg tablet 7.5 mg PO BEDTIME 08/25/23 08/31/23 montelukast 10 mg tablet 10 mg PO DAILY 08/25/23 08/31/23 naproxen 375 mg tablet 375 mg PO BID 08/25/23 08/31/23 pantoprazole 40 mg tablet,delayed 40 mg PO DAILY 08/25/23 08/31/23 release prazosin 2 mg capsule 2 mg PO BID 08/25/23 08/31/23 fluticasone 100 mcg-salmeterol 50 1 ea inhalation BID 08/31/23 08/31/23 mcg/dose blistr powdr for inhalation (Advair Diskus) lorazepam 0.5 mg tablet 0.5 mg PO DAILY PRN Anxiety 08/31/23 08/31/23 Previous Rx's Medication Instructions Recorded albuterol sulfate 90 mcg/actuation 2 puff inhalation Q4-6H PRN 08/30/23 aerosol inhaler (ProAir HFA) shortness of breath or wheezing #8.5 grams dexamethasone 4 mg tablet 4 mg PO DAILY #5 tabs 08/30/23 Allergies Allergy/AdvReac Type Severity Reaction Status Date / Time azithromycin [AZITHROMYCIN] Allergy Severe Rash Verified 07/21/23 12:54 Fish Containing Products Allergy Severe Anaphylaxis Verified 07/21/23 12:54 codeine [Codeine] Allergy Intermediate Rash Verified 07/21/23 12:54 Penicillins Allergy Intermediate Rash Verified 07/21/23 12:54 prednisone [Prednisone] Allergy Intermediate Rash Verified 07/21/23 12:54 Sulfa (Sulfonamide Allergy Intermediate Rash Verified 07/21/23 12:54 Antibiotics) [Sulfa (Sulfonamides)] ziprasidone [From Geodon] Allergy Intermediate dysuria, Verified 07/21/23 12:54 rash Review of Systems 2 Review of Systems: Constitutional : No Weight loss, No Fever, No Chills, No Night Sweats, No Fatigue, No Malaise ENT/Mouth : No Hearing loss, No Ear Pain, No Nasal Congestion, No Sinus Pain, No Hoarseness, No sore throat, No Rhinorrhea, No Swallowing Difficulty Eyes: No Eye Pain, No Swelling, No Redness, No Foreign Body, No Discharge, No Vision Changes Cardiovascular : No Chest Pain, No SOB, No Dyspnea on Exertion, No Orthopnea, No Edema, No Palpitations Respiratory : No Cough, No Sputum, No Wheezing, No Smoke Exposure, No Dyspnea Gastrointestinal : No Nausea, No Vomiting, No Diarrhea, No Constipation, No abdominal Pain, No Hematochezia, No Melena Genitourinary : no irregular bleeding, No Dysuria, No Urinary Frequency, No Hematuria, No Urinary Incontinence, No Urgency, No Flank Pain, No Urinary Flow Changes, No Hesitancy Musculoskeletal : No joint pain, No Myalgias, No Joint Swelling Skin : No Skin Lesions, No rash Neuro : No Weakness, No Numbness, No Paresthesias, No Loss of Consciousness, No Dizziness, No Headache Psych : Complaining of anxiety, depression, denies SI or HI Heme/Lymph: No Bruising, No Bleeding,No Lymphadenopathy Endocrine : No Polyuria, No Polydipsia, No Temperature Intolerance PMFSH Past Medical History Medical History Chest pain Acute anxiety COVID-19 Full body hives Major depression Dizziness Suicide attempt UTI (urinary tract infection) Acetaminophen overdose COVID History of attempted suicide History of non-suicidal self-harm Hypomagnesemia Suicide attempt Suicide attempt by acetaminophen overdose Acetaminophen overdose Depression MDD (major depressive disorder), recurrent episode, severe Diabetes type 2, controlled Borderline personality disorder PTSD (post-traumatic stress disorder) Overdose GERD (gastroesophageal reflux disease) Mood disorder Hyperlipidemia Bronchitis Social History Social History Household Members: Other Household Members Other:: intermediate Housing: Assisted Living Facility Housing Other:: intermediate Do you presently have visiting nurse or other home services: No Unable to assess alcohol history related to: Unknown Alcohol intake: current Alcohol intake frequency: does not drink Patient Tobacco Use Status: Current everyday Tobacco user Tobacco use type: Cigarette Cigarette Packs Per Day: 1 Cigarettes Per Day: 20.0 Years Smoked: 22 e-Cigarette/Vaping Use: Never Used Second Hand Smoke Exposure: Yes Substance Use Type: Marijuana Advance Directives: No Advance Directives Information Provided: No service: No Current occupational status: unemployed and disabled Sexual orientation: Straight/Heterosexual Physical Exam 2 Vital Signs: Vital Signs: Last Vital Signs Temp 97.6 F 08/31/23 20:32 Pulse 97 08/31/23 20:32 Resp 17 08/31/23 20:32 BP 141/88 H 08/31/23 20:32 Pulse Ox 97 08/31/23 20:32 O2 Del Method Room Air 08/31/23 20:32 BMI result Body Mass Index 37.6 Const: Other: Appearance: Alert. Oriented X3. No acute distress. Eyes: Pupils equal, round and reactive to light. ENT: Pharynx normal. Neck: Normal inspection. Neck supple. No lymph nodes noted. No crepitus CVS: Normal heart rate and rhythm. Pulses normal. Normal S1 and S2 Respiratory: No respiratory distress. Breath sounds normal. No Wheezing. No rales Abdomen: Soft and nontender. No rigidity. No distention. Skin: Skin warm and dry. Normal skin color. Normal skin turgor. Extremities: No lower extremity edema. No Lacerations. No Rash Neuro: Oriented X 3. No motor deficit. No sensory deficit. Moving all extremities. No slurred speech. CN 2 through 12 grossly intact Psych: calm, cooperative, normal affect Medical Decision Making Medical Decision Making MDM Narrative: -patient calm, cooperative, normal mood affect -patient adamant that she is not SI or HI. Patient states that he was a moment of anxiety that made her say she was SI. Patient states she has a lot of plans and is looking forward to this week's Thanksgiving dinner -my interpretation of labs: Hematology and chemistry are baseline. Patient's urinalysis has a significant amount of squamous epithelial cells, patient does not have any UTI symptoms, antibiotic not indicate Differential Diagnosis Differential Diagnoses: The differential diagnosis associated with the presentation includes (Anxiety, depression) Lab Data [facility] Lab Attestation statement: I reviewed the patient's lab results. 08/31/23 21:41 08/31/23 21:41 Labs: Lab Results 08/31/23 08/31/23 Range/Units 21:41 21:42 WBC 11.1 H (4.8-10.8) X10*3/uL RBC 3.57 L (4.20-5.50) X10*6/uL Hgb 10.1 L (12.0-16.0) g/dl Hct 31.5 L (37.0-47.0) % MCV 88.2 (80.0-98.0) fL MCH 28.3 (27.0-33.0) pg MCHC 32.1 (31.0-35.0) g/dl RDW 14.0 (11.0-16.0) % Plt Count 290 (160-400) X10*3/uL MPV 9.8 (9.4-12.3) fL Immature Gran % (Auto) 0.5 H (0.0-0.4) % Neut % (Auto) 68.0 (45-73) % Lymph % (Auto) 23.8 (20-40) % [place] % (Auto) 6.8 (2-11) % Eos % (Auto) 0.5 (0-4) % Baso % (Auto) 0.4 (0-2) % Lymph # (Auto) 2.6 (1.2-4.9) X10*3/uL [place] # (Auto) 0.8 (0.1-1.2) X10*3/uL Eos # (Auto) 0.1 (0.0-0.4) X10*3/uL Baso # (Auto) 0.0 (0.0-0.2) X10*3/uL Abs Immat Gran (auto) 0.05 H (0.00-0.03) X10*3/uL Absolute Neuts (auto) 7.6 (2.0-8.3) x10*3/uL Absolute Nucleated RBC 0.000 (0.0-0.012) X10*3/uL Nucleated RBC % (auto) 0.0 (0.0-0.2) /100WBC Sodium 138 (135-145) mmol/L Potassium 3.5 (3.3-5.1) mmol/L Chloride 106 (96-108) mmol/L Carbon Dioxide 23 (22-29) mmol/L Anion Gap 13 (12-20) BUN 17 H (9-16) mg/dL Creatinine 0.75 (0.5-1.4) mg/dL Estim Creat Clear Calc 112.5 Estimated GFR > 60 Random Glucose 119 H (60-115) mg/dL Calcium 8.7 (8.4-10.2) mg/dL Total Bilirubin 0.2 (0.0-1.0) mg/dL AST 18 (5-31) U/L ALT 16 (0-31) U/L Alkaline Phosphatase 93 (39-117) U/L Total Protein 6.6 (6.5-8.0) g/dL Albumin 4.0 (3.5-5.0) g/dL Urine Color Yellow Urine Appearance Cloudy Urine pH 5.5 (5.0-9.0) Ur Specific [place] 1.015 (1.005-1.025) Urine Protein Negative (Neg-Trace) mg/dL Urine Glucose (UA) Negative (Negative) mg/dL Urine Ketones Negative (Negative) mg/dL Urine Blood Negative (Negative) Urine Nitrite Negative (Negative) Ur Leukocyte Esterase Small (1+) H (Negative) Urine RBC 3-5 H (0-2) /HPF Urine WBC 11-20 H (0-5) /HPF Ur Squamous Epith Cells 11-20 (0-2) /HPF Urine Bacteria 1+ (None Seen) Hyaline Casts 0-2 (0-2) /LPF Urine Test NEGATIVE (NEGATIVE) Salicylates < 5.0 L (15-30) mg/dL Urine Opiates Screen Not Detected (Not Detect) Urine Fentanyl Screen Not Detected (Not Detect) Acetaminophen < 3 (<30) mcg/mL Ur Barbiturates Screen Not Detected (Not Detect) Ur Phencyclidine Scrn Not Detected (Not Detect) Ur Amphetamines Screen Not Detected (Not Detect) U Benzodiazepines Scrn Not Detected (Not Detect) Urine Cocaine Screen Not Detected (Not Detect) U Marijuana (THC) Screen Not Detected (Not Detect) Ethyl Alcohol 10 mg/dL Discharge Plan Discharge Clinical Impression: Anxiety Patient Disposition: Home, Self-Care Instructions: Anxiety (ED) Additional Instructions: Please follow-up with your primary care physician tomorrow. If you have any worsening or new symptoms, please return to the emergency room or call 911 Prescriptions: No Action trazodone 150 mg tablet 150 mg PO BEDTIME fluoxetine 40 mg capsule 80 mg PO DAILY naproxen 375 mg tablet 375 mg PO BID pantoprazole 40 mg tablet,delayed release (DR/EC) 40 mg PO DAILY buspirone 10 mg tablet 10 mg PO BID benztropine 1 mg tablet 1 mg PO BID montelukast 10 mg tablet 10 mg PO DAILY lisinopril 5 mg tablet 5 mg PO DAILY prazosin 2 mg capsule 2 mg PO BID mirtazapine 7.5 mg tablet 7.5 mg PO BEDTIME albuterol sulfate [ProAir HFA] 90 mcg/actuation HFA aerosol inhaler 2 puff inhalation Q4-6H PRN (Reason: shortness of breath or wheezing) Qty: 8.5 0RF dexamethasone 4 mg tablet 4 mg PO DAILY Qty: 5 0RF fluticasone propion-salmeterol [Advair Diskus] 100-50 mcg/dose blister with device 1 ea inhalation BID lorazepam 0.5 mg tablet 0.5 mg PO DAILY PRN (Reason: Anxiety)
== END 2023-08-31 23:28 | disposition home or self-care (01) ==
PROVIDERS: Emergency Provider Emergency Medicine; PCP Nurse Practitioner Family
DX: F33.1 Major depressive disorder, recurrent, moderate (principal); F41.1 Generalized anxiety disorder; F43.0 Acute stress reaction; R45.851 Suicidal ideations; F17.210 Nicotine dependence, cigarettes, uncomplicated; Z71.6 Tobacco abuse counseling; Z79.899 Other long term (current) drug therapy
CPT/HCPCS: 36415; 80053; 80143; 80179; 80307; 81001; 81025; 85025; 99283

== ENCOUNTER 2023-09-09 14:17 | Emergency (ER) | payer MEDICARE, MEDICAID, SELFPAY ==
[2023-09-09 14:23] VITALS: BMI 41.2
--- NOTE | 2023-09-09 14:30 | ED.GENADULT ---
HPI - General Adult General Chief complaint: Psychiatric Symptoms Stated complaint: HEARING VOICES Time Seen by Provider: 09/09/23 14:24 Source: patient Mode of arrival: ambulatory Limitations: no limitations History of Present Illness HPI narrative: 47 year old female presents with complaints of urine voices since this morning, patient reports that they are telling her to harm herself however she is not going to. Denies homicidal ideation. Denies drugs, alcohol tobacco. No medical complaints. Tells me she has not been in the hospital for 9 days. Feeling well otherwise. Med compliant. Related Data Home Medications Medication Instructions Recorded Confirmed trazodone 150 mg tablet 150 mg PO BEDTIME 06/15/23 08/31/23 benztropine 1 mg tablet 1 mg PO BID 08/25/23 08/31/23 buspirone 10 mg tablet 10 mg PO BID 08/25/23 09/09/23 fluoxetine 40 mg capsule 80 mg PO DAILY 08/25/23 08/31/23 lisinopril 5 mg tablet 5 mg PO DAILY 08/25/23 08/31/23 mirtazapine 7.5 mg tablet 7.5 mg PO BEDTIME 08/25/23 08/31/23 montelukast 10 mg tablet 10 mg PO DAILY 08/25/23 08/31/23 naproxen 375 mg tablet 375 mg PO BID 08/25/23 08/31/23 pantoprazole 40 mg tablet,delayed 40 mg PO DAILY 08/25/23 08/31/23 release prazosin 2 mg capsule 2 mg PO BID 08/25/23 08/31/23 fluticasone 100 mcg-salmeterol 50 1 ea inhalation BID 08/31/23 08/31/23 mcg/dose blistr powdr for inhalation (Advair Diskus) lorazepam 0.5 mg tablet 0.5 mg PO DAILY PRN Anxiety 08/31/23 08/31/23 Previous Rx's Medication Instructions Recorded albuterol sulfate 90 mcg/actuation 2 puff inhalation Q4-6H PRN 08/30/23 aerosol inhaler (ProAir HFA) shortness of breath or wheezing #8.5 grams dexamethasone 4 mg tablet 4 mg PO DAILY #5 tabs 08/30/23 Allergies Allergy/AdvReac Type Severity Reaction Status Date / Time azithromycin [AZITHROMYCIN] Allergy Severe Rash Verified 07/21/23 12:54 Fish Containing Products Allergy Severe Anaphylaxis Verified 07/21/23 12:54 codeine [Codeine] Allergy Intermediate Rash Verified 07/21/23 12:54 Penicillins Allergy Intermediate Rash Verified 07/21/23 12:54 prednisone [Prednisone] Allergy Intermediate Rash Verified 07/21/23 12:54 Sulfa (Sulfonamide Allergy Intermediate Rash Verified 07/21/23 12:54 Antibiotics) [Sulfa (Sulfonamides)] ziprasidone [From Geodon] Allergy Intermediate dysuria, Verified 07/21/23 12:54 rash Review of Systems Review of Systems: Constitutional : No Weight loss, No Fever, No Chills, No Fatigue, No Malaise ENT/Mouth : No sore throat, No Rhinorrhea Eyes: No Eye Pain, No Swelling, No Redness Cardiovascular : No Chest Pain, No SOB, No Dyspnea on Exertion, No Orthopnea, No Edema, No Palpitations Respiratory : No Cough, No Sputum, No Wheezing Gastrointestinal : No Nausea, No Vomiting, No Diarrhea, No Constipation, No abdominal Pain, No Hematochezia, No Melena Genitourinary : No Dysuria, No Urinary Frequency, No Hematuria, Musculoskeletal : No joint pain, No Myalgias, No Joint Swelling Skin : No Skin Lesions, No rash Neuro : No Weakness, No Numbness, No Dizziness, No Headache Psych : + Anxiety/Panic, No Depression, + hallucinations, No Si/Hi All other systems reviewed and are negative Yes all other systems are reviewed and are negative [facility] Past Medical History Attestation statement: The following information was validated with the patient. Source: old records reviewed and nursing notes reviewed Medical History Chest pain Acute anxiety COVID-19 Full body hives Major depression Dizziness Suicide attempt UTI (urinary tract infection) Acetaminophen overdose COVID History of attempted suicide History of non-suicidal self-harm Hypomagnesemia Suicide attempt Suicide attempt by acetaminophen overdose Acetaminophen overdose Depression MDD (major depressive disorder), recurrent episode, severe Diabetes type 2, controlled Borderline personality disorder PTSD (post-traumatic stress disorder) Overdose GERD (gastroesophageal reflux disease) Mood disorder Hyperlipidemia Bronchitis Social History Household Members: Other Household Members Other:: long-term Housing: Assisted Living Facility Housing Other:: long-term Do you presently have visiting nurse or other home services: No Unable to assess alcohol history related to: Unknown Alcohol intake: current Alcohol intake frequency: does not drink Patient Tobacco Use Status: Current everyday Tobacco user Tobacco use type: Cigarette Cigarette Packs Per Day: 1 Cigarettes Per Day: 20.0 Years Smoked: 22 e-Cigarette/Vaping Use: Never Used Second Hand Smoke Exposure: Yes Substance Use Type: Marijuana Advance Directives: No Advance Directives Information Provided: No service: No Current occupational status: unemployed and disabled Sexual orientation: Straight/Heterosexual Physical Exam ED Vital Signs: BMI result Body Mass Index 41.2 vss Appearance: Alert.? Oriented X3.? No acute distress.? Head: Normocephalic, atraumatic, no step-offs or deformities Eyes: Pupils equal, round and reactive to light.? Neck: Normal inspection.? Neck supple.? CVS: Normal heart rate and rhythm.? Pulses normal.? Respiratory: No respiratory distress.? Breath sounds normal.? Abdomen: Soft and nontender.? Skin: Skin warm and dry.? Normal skin color.? Normal skin turgor.? Extremities: No lower extremity edema.? No calf ttp. 5/5 strength to bilateral upper and lower extremities Neuro: Oriented X 3.? No motor deficit.? No sensory deficit. CN 2-12 intact Course Reevaluation(s) Reevaluation #1: CBC appears to be around patient's baseline slight leukocytosis today, she did have this on 08/31/2023, no medical complaints today unlikely infectious in origin. Chemistry unremarkable. Urine toxicology and ethanol pending. 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 At this time patient to be placed in observation to allow more time to be seen by the care team. Time: 15:07 Medical Decision Making Medical Decision Making MDM Narrative: 1433 47 year old female presents w/ hallucinations X1 day PE benign Lik[place] MDD vs borderline personality do vs anxiety.? Unlikely metabolic causes. Plan- medical clearance, eval by care team Differential Diagnosis Differential Diagnoses: The differential diagnosis associated with the presentation includes [place] MDD vs borderline personality do vs anxiety.? Unlikely metabolic causes. Admission/Observation Consideration of admission/observation: Escalation of care including admission/observation considered unlikely Lab Data 09/09/23 14:48 09/09/23 14:48 Labs: Lab Results 09/09/23 09/09/23 Range/Units 14:47 14:48 WBC 10.9 H (4.8-10.8) X10*3/uL RBC 3.94 L (4.20-5.50) X10*6/uL Hgb 11.1 L (12.0-16.0) g/dl Hct 35.0 L (37.0-47.0) % MCV 88.8 (80.0-98.0) fL MCH 28.2 (27.0-33.0) pg MCHC 31.7 (31.0-35.0) g/dl RDW 13.8 (11.0-16.0) % Plt Count 352 (160-400) X10*3/uL MPV 9.2 L (9.4-12.3) fL Immature Gran % (Auto) 0.6 H (0.0-0.4) % Neut % (Auto) 71.6 (45-73) % Lymph % (Auto) 17.9 L (20-40) % [place] % (Auto) 7.1 (2-11) % Eos % (Auto) 2.5 (0-4) % Baso % (Auto) 0.3 (0-2) % Lymph # (Auto) 2.0 (1.2-4.9) X10*3/uL [place] # (Auto) 0.8 (0.1-1.2) X10*3/uL Eos # (Auto) 0.3 (0.0-0.4) X10*3/uL Baso # (Auto) 0.0 (0.0-0.2) X10*3/uL Abs Immat Gran (auto) 0.07 H (0.00-0.03) X10*3/uL Absolute Neuts (auto) 7.8 (2.0-8.3) x10*3/uL Absolute Nucleated RBC 0.000 (0.0-0.012) X10*3/uL Nucleated RBC % (auto) 0.0 (0.0-0.2) /100WBC Urine Color Straw Urine Appearance Hazy Urine pH 5.5 (5.0-9.0) Ur Specific [place] 1.010 (1.005-1.025) Urine Protein 100 (2+) H (Neg-Trace) mg/dL Urine Glucose (UA) Negative (Negative) mg/dL Urine Ketones Negative (Negative) mg/dL Urine Blood Large (3+) H (Negative) Urine Nitrite Negative (Negative) Ur Leukocyte Esterase Moderate (2+) H (Negative) Urine RBC >20 H (0-2) /HPF Urine WBC 21-50 H (0-5) /HPF Ur Squamous Epith Cells 11-20 (0-2) /HPF Urine Bacteria 2+ (None Seen) Hyaline Casts 0-2 (0-2) /LPF Urine Test NEGATIVE (NEGATIVE) External Record Review External record reviewed: Inpatient record, Office record, Outpatient record, Prior outpatient labs, Prior outpatient radiology, Primary care record and Outside ED record Social Determinants Patient?s care significantly limited by Social Determinants of Health including: Other Social Determinant of Health Critical Care Time Critical Care Time Critical Care Time: No Discharge Plan Discharge Clinical Impression: Acute anxiety Patient Disposition: Still a Patient Prescriptions: No Action trazodone 150 mg tablet 150 mg PO BEDTIME fluoxetine 40 mg capsule 80 mg PO DAILY naproxen 375 mg tablet 375 mg PO BID pantoprazole 40 mg tablet,delayed release (DR/EC) 40 mg PO DAILY buspirone 10 mg tablet 10 mg PO BID benztropine 1 mg tablet 1 mg PO BID montelukast 10 mg tablet 10 mg PO DAILY lisinopril 5 mg tablet 5 mg PO DAILY prazosin 2 mg capsule 2 mg PO BID mirtazapine 7.5 mg tablet 7.5 mg PO BEDTIME albuterol sulfate [ProAir HFA] 90 mcg/actuation HFA aerosol inhaler 2 puff inhalation Q4-6H PRN (Reason: shortness of breath or wheezing) Qty: 8.5 0RF dexamethasone 4 mg tablet 4 mg PO DAILY Qty: 5 0RF fluticasone propion-salmeterol [Advair Diskus] 100-50 mcg/dose blister with device 1 ea inhalation BID lorazepam 0.5 mg tablet 0.5 mg PO DAILY PRN (Reason: Anxiety)
[2023-09-09 14:54] LABS: MANUAL DIFF FLAG NO
[2023-09-09 14:57] LABS: Basophils Percent Auto 0.3 % (0-2); Eosinophils Absolute Auto 0.3 X10*3/uL (0.0-0.4); Eosinophils Percent Auto 2.5 % (0-4); Hemoglobin 11.1 g/dl (12.0-16.0); Imm Gran Abs Auto 0.07 X10*3/uL (0.00-0.03); Imm Gran Pct Auto 0.6 % (0.0-0.4); Lymphocytes Percent Auto 17.9 % (20-40); Mean Corpuscular HGB Conc 31.7 g/dl (31.0-35.0); Mean Corpuscular Hemoglobin 28.2 pg (27.0-33.0); Mean Corpuscular Volume 88.8 fL (80.0-98.0); Mean Platelet Volume 9.2 fL (9.4-12.3); Monocytes Absolute Auto 0.8 X10*3/uL (0.1-1.2); Monocytes Percent Auto 7.1 % (2-11); Neutrophils Absolute Auto 7.8 x10*3/uL (2.0-8.3); Neutrophils Percent Auto 71.6 % (45-73); Platelet Count 352 X10*3/uL (160-400); Red Blood Count 3.94 X10*6/uL (4.20-5.50); Red Cell Distribution Width 13.8 % (11.0-16.0); White Blood Count 10.9 X10*3/uL (4.8-10.8)
[2023-09-09 14:59] LABS: Bacteria Urine 2+ (None Seen); Glucose Urine UA Negative (Negative); Hyaline Casts Urine 0-2 /LPF (0-2); Leukocyte Esterase Urine Moderate (2+) (Negative); Nitrite Urine Negative (Negative); PH 5.5 (5.0-9.0); RBC Urine >20 /HPF (0-2); UMIC TRIGGER UACC YES; Urine Blood Large (3+) (Negative); Urine Ketones Negative (Negative); Urine Protein 100 (2+) mg/dL (Neg-Trace); WBC Urine 21-50 /HPF (0-5)
[2023-09-09 14:59] LABS: UPreg QC Valid YES; Urine Pregnancy NEGATIVE (NEGATIVE)
[2023-09-09 15:00] LABS: Appearance Urine Hazy; Color Urine Straw; UACC Culture Trigger YES
[2023-09-09 15:09] LABS: Amphetamine Screen Urine Not Detected (Not Detect); Barbiturates, Urine Not Detected (Not Detect); Benzodiazepines Screen Urine Not Detected (Not Detect); Cannabinoid Screen Urine Not Detected (Not Detect); Cocaine Screen Urine Not Detected (Not Detect); Fentanyl, urine Not Detected (Not Detect); Opiate Screen Urine Not Detected (Not Detect); Phencyclidine Screen Urine Not Detected (Not Detect)
[2023-09-09 15:14] LABS: Alanine Aminotransferase 14 U/L (0-31); Albumin Level 4.3 g/dL (3.5-5.0); Alkaline Phosphatase 117 U/L (39-117); Anion Gap 13 (12-20); Aspartate Amino Transferase 14 U/L (5-31); Bilirubin Total 0.1 mg/dL (0.0-1.0); Blood Urea Nitrogen 17 mg/dL (9-16); Calcium 9.5 mg/dL (8.4-10.2); Carbon Dioxide 23 mmol/L (22-29); Chloride 107 mmol/L (96-108); Creatinine Clr Calc Pharmacy 103.1; Estimated Glomerular Filt Rate > 60; Ethanol < 10 mg/dL; Glucose Random 116 mg/dL (60-115); Potassium 4.2 mmol/L (3.3-5.1); Sodium 139 mmol/L (135-145); Total Protein 7.3 g/dL (6.5-8.0)
[2023-09-09 15:19] LABS: Acetaminophen LAB < 3 mcg/mL (<30); Salicylate < 5.0 mg/dL (15-30)
--- NOTE | 2023-09-09 15:20 | PC.NURSE ---
patient arrived via ems. Patient reports hearing voices that were telling her to hurt herself. Patient denies SI/HI at this time. Changeover completed, belongings secured. Patient watching TV at this time.
[2023-09-09 17:42] VITALS: RESP 16
--- NOTE | 2023-09-09 19:20 | PC.NURSE ---
Pt aox4. Calm and cooperative. NO apparent distress noted. Reports wanting to go home I am feeling better now . Denies SI/HI and hallucinations at this time. MLP aware and at bedside.
[2023-09-09] MEDS: cefuroxime axetiL 250 MG TABLET PO (19:29)
== END 2023-09-09 19:46 | disposition home or self-care (01) ==
PROVIDERS: Emergency Provider Emergency Medicine; PCP Nurse Practitioner Family
DX: R44.0 Auditory hallucinations (principal); F41.1 Generalized anxiety disorder; F43.0 Acute stress reaction; Z79.899 Other long term (current) drug therapy
CPT/HCPCS: 36415; 80053; 80143; 80179; 80307; 81001; 81025; 85025; 87086; 99284

== ENCOUNTER 2023-09-14 21:09 | Emergency (ER) | payer MEDICARE, MEDICAID, SELFPAY ==
--- NOTE | 2023-09-14 | ECG_ITS ---
Test Reason : CHEST PAIN Blood Pressure : / mmHG Vent. Rate : 108 BPM Atrial Rate : 108 BPM P-R Int : 156 ms QRS Dur : 084 ms QT Int : 366 ms P-R-T Axes : 056 049 057 degrees QTc Int : 490 ms Sinus tachycardia Otherwise normal ECG When compared with ECG of 29-AUG-2023 20:16, No significant change was found Referred By: Generic ED Physician Electronically Signed By:DONALD HOOKER MD
[2023-09-14 21:17] VITALS: BP 156/84; PULSE 96; O2SAT 99
[2023-09-14 21:21] VITALS: BMI 37.8
--- NOTE | 2023-09-14 21:59 | ED_ITS ---
HPI - Abdominal Pain General Chief Complaint: Abdominal Pain Stated Complaint: Chest and abdominal pain Time Seen by Provider: 09/14/23 21:57 Source: patient Mode of arrival: ambulatory Limitations: no limitations History of Present Illness HPI narrative: Patient with multiple psychological issues chronic constipation been here multiple times comes here for 1 week of constipation with diffuse abdominal pain nausea , vomited once able to drink fluids was with therapist today stress feels shaky with multiple complaints including chest pain abdominal pain nausea. Patient did take lactulose without much relief Related Data Home Medications Medication Instructions Recorded Confirmed trazodone 150 mg tablet 150 mg PO BEDTIME 06/15/23 09/09/23 benztropine 1 mg tablet 1 mg PO BID 08/25/23 09/09/23 buspirone 10 mg tablet 10 mg PO BID 08/25/23 09/09/23 fluoxetine 40 mg capsule 80 mg PO DAILY 08/25/23 09/09/23 lisinopril 5 mg tablet 5 mg PO DAILY 08/25/23 09/09/23 mirtazapine 7.5 mg tablet 7.5 mg PO BEDTIME 08/25/23 09/09/23 montelukast 10 mg tablet 10 mg PO DAILY 08/25/23 09/09/23 naproxen 375 mg tablet 375 mg PO BID 08/25/23 09/09/23 pantoprazole 40 mg tablet,delayed 40 mg PO DAILY 08/25/23 09/09/23 release prazosin 2 mg capsule 2 mg PO BID 08/25/23 09/09/23 fluticasone 100 mcg-salmeterol 50 1 ea inhalation BID 08/31/23 09/09/23 mcg/dose blistr powdr for inhalation (Advair Diskus) lorazepam 0.5 mg tablet 0.5 mg PO DAILY PRN Anxiety 08/31/23 09/09/23 Previous Rx's Medication Instructions Recorded albuterol sulfate 90 mcg/actuation 2 puff inhalation Q4-6H PRN 08/30/23 aerosol inhaler (ProAir HFA) shortness of breath or wheezing #8.5 grams dexamethasone 4 mg tablet 4 mg PO DAILY #5 tabs 08/30/23 cefuroxime axetil 250 mg tablet 250 mg PO Q12H #10 tabs 09/09/23 bisacodyl 5 mg tablet,delayed 10 mg (2 x 5 mg) PO BEDTIME PRN 09/15/23 release (Dulcolax (bisacodyl)) constipation #30 tabs polyethylene glycol 3350 17 17 g PO DAILY #510 grams 09/15/23 gram/dose oral powder (Miralax) Allergies Allergy/AdvReac Type Severity Reaction Status Date / Time azithromycin [AZITHROMYCIN] Allergy Severe Rash Verified 07/21/23 12:54 Fish Containing Products Allergy Severe Anaphylaxis Verified 07/21/23 12:54 codeine [Codeine] Allergy Intermediate Rash Verified 07/21/23 12:54 Penicillins Allergy Intermediate Rash Verified 07/21/23 12:54 prednisone [Prednisone] Allergy Intermediate Rash Verified 07/21/23 12:54 Sulfa (Sulfonamide Allergy Intermediate Rash Verified 07/21/23 12:54 Antibiotics) [Sulfa (Sulfonamides)] ziprasidone [From Geodon] Allergy Intermediate dysuria, Verified 07/21/23 12:54 rash PMFSH Past Medical History Medical History Chest pain Acute anxiety COVID-19 Full body hives Major depression Dizziness Suicide attempt UTI (urinary tract infection) Acetaminophen overdose COVID History of attempted suicide History of non-suicidal self-harm Hypomagnesemia Suicide attempt Suicide attempt by acetaminophen overdose Acetaminophen overdose Depression MDD (major depressive disorder), recurrent episode, severe Diabetes type 2, controlled Borderline personality disorder PTSD (post-traumatic stress disorder) Overdose GERD (gastroesophageal reflux disease) Mood disorder Hyperlipidemia Bronchitis Social History Social History Household Members: Other Household Members Other:: halfway Housing: Assisted Living Facility Housing Other:: halfway Do you presently have visiting nurse or other home services: No Unable to assess alcohol history related to: Unknown Alcohol intake: current Alcohol intake frequency: does not drink Comment: 1:1 sitter Patient Tobacco Use Status: Current everyday Tobacco user Tobacco use type: Cigarette Cigarette Packs Per Day: 1 Cigarettes Per Day: 20.0 Years Smoked: 22 e-Cigarette/Vaping Use: Never Used Second Hand Smoke Exposure: Yes Substance Use Type: Marijuana Advance Directives: No Advance Directives Information Provided: No service: No Current occupational status: unemployed and disabled Sexual orientation: Straight/Heterosexual Physical Exam ED Vital Signs: Vital Signs - 24 hr 09/15/23 07:35 Pulse Rate 89 Respiratory Rate 12 Blood Pressure 106/72 Pulse Oximetry 98 Oxygen Delivery Method Room Air BMI result Body Mass Index 37.8 Appearance: Alert. Oriented X3. No acute distress. Anxious Eyes: PERRLA, No Nystagmus ENT: Pharynx normal. Oral Mucosa moist Neck: Normal inspection. Neck supple. CVS: Normal heart rate and rhythm. Pulses normal. Respiratory: No respiratory distress. Equal air entry bilateral, no wheezing/rales/rhonchi Abdomen: Soft mild diffuse tenderness Bowel sounds are present, no mass palpable, no CVA tenderness Skin: Skin warm and dry. Normal skin color. Normal skin turgor. Extremities: No lower extremity edema. No calf tenderness Neuro: Oriented X 3. No motor deficit. No sensory deficit.No cerebellar signs , cranial nerves II-XII intact Medical Decision Making Medical Decision Making [facility] Narrative: Patient multiple nonspecific complaints with atypical chest pain constipation anxiety labs stable EKG without any ischemic change discharge patient home stool softner Lab Data [facility] Lab Attestation statement: I reviewed the patient's lab results. 09/14/23 22:03 09/14/23 22:03 Labs: Lab Results 09/14/23 Range/Units 22:03 WBC 7.6 (4.8-10.8) X10*3/uL RBC 3.76 L (4.20-5.50) X10*6/uL Hgb 10.6 L (12.0-16.0) g/dl Hct 33.0 L (37.0-47.0) % MCV 87.8 (80.0-98.0) fL MCH 28.2 (27.0-33.0) pg MCHC 32.1 (31.0-35.0) g/dl RDW 13.8 (11.0-16.0) % Plt Count 281 (160-400) X10*3/uL MPV 9.3 L (9.4-12.3) fL Immature Gran % (Auto) 0.5 H (0.0-0.4) % Neut % (Auto) 60.5 (45-73) % Lymph % (Auto) 27.0 (20-40) % [place] % (Auto) 9.1 (2-11) % Eos % (Auto) 2.6 (0-4) % Baso % (Auto) 0.3 (0-2) % Lymph # (Auto) 2.0 (1.2-4.9) X10*3/uL [place] # (Auto) 0.7 (0.1-1.2) X10*3/uL Eos # (Auto) 0.2 (0.0-0.4) X10*3/uL Baso # (Auto) 0.0 (0.0-0.2) X10*3/uL Abs Immat Gran (auto) 0.04 H (0.00-0.03) X10*3/uL Absolute Neuts (auto) 4.6 (2.0-8.3) x10*3/uL Absolute Nucleated RBC 0.000 (0.0-0.012) X10*3/uL Nucleated RBC % (auto) 0.0 (0.0-0.2) /100WBC Sodium 142 (135-145) mmol/L Potassium 3.6 (3.3-5.1) mmol/L Chloride 110 H (96-108) mmol/L Carbon Dioxide 23 (22-29) mmol/L Anion Gap 13 (12-20) BUN 13 (9-16) mg/dL Creatinine 0.77 (0.5-1.4) mg/dL Estim Creat Clear Calc 105.9 Estimated GFR > 60 Random Glucose 119 H (60-115) mg/dL Calcium 9.3 (8.4-10.2) mg/dL Total Bilirubin 0.1 (0.0-1.0) mg/dL AST 16 (5-31) U/L ALT 17 (0-31) U/L Alkaline Phosphatase 106 (39-117) U/L Troponin I High Sens 4.3 D (<3.5-17.0) ng/L Total Protein 6.9 (6.5-8.0) g/dL Albumin 4.1 (3.5-5.0) g/dL Independent Interpretation I performed an independent interpretation of an: EKG Interpretation: Sinus tachycardia with heart rate 108 beats per minute normal interval normal axis no acute ST T wave changes no acute ischemia Medications Administered Discontinued Medications Generic Name Dose Route Start Last Admin Trade Name Freq PRN Reason Stop Dose Admin Bisacodyl 10 mg 09/14/23 22:00 09/14/23 23:06 Bisacodyl 5 Mg Tablet.Dr PO 09/14/23 22:01 10 mg ONCE ONE Administration Lorazepam 2 mg 09/14/23 22:50 09/14/23 23:06 Lorazepam 1 Mg Tablet PO 09/14/23 22:51 2 mg ONCE ONE Administration Magnesium Hydroxide 30 ml 09/14/23 22:00 09/14/23 23:06 Milk Of Magnesia 30 Ml Oral.Susp PO 09/14/23 22:01 30 ml ONCE ONE Administration Ondansetron HCl 4 mg 09/14/23 22:52 09/14/23 23:06 Ondansetron Odt 4 Mg Tab.Rapdis TRANSLINGU 09/14/23 22:53 4 mg ONCE ONE Administration Discharge Plan Discharge Clinical Impression: Constipation, Anxiety Patient Disposition: Home, Self-Care Instructions: Constipation (ED), Anxiety (ED) Additional Instructions: Drink plenty of fluids Taking medication as prescribed Take MiraLax and Dulcolax daily for constipation Prescriptions: New polyethylene glycol 3350 [Miralax] 17 gram/dose powder 17 g PO DAILY Qty: 510 0RF bisacodyl [Dulcolax (bisacodyl)] 5 mg tablet,delayed release (DR/EC) 10 mg PO BEDTIME PRN (Reason: constipation) Qty: 30 0RF No Action trazodone 150 mg tablet 150 mg PO BEDTIME fluoxetine 40 mg capsule 80 mg PO DAILY naproxen 375 mg tablet 375 mg PO BID pantoprazole 40 mg tablet,delayed release (DR/EC) 40 mg PO DAILY buspirone 10 mg tablet 10 mg PO BID benztropine 1 mg tablet 1 mg PO BID montelukast 10 mg tablet 10 mg PO DAILY lisinopril 5 mg tablet 5 mg PO DAILY prazosin 2 mg capsule 2 mg PO BID mirtazapine 7.5 mg tablet 7.5 mg PO BEDTIME albuterol sulfate [ProAir HFA] 90 mcg/actuation HFA aerosol inhaler 2 puff inhalation Q4-6H PRN (Reason: shortness of breath or wheezing) Qty: 8.5 0RF dexamethasone 4 mg tablet 4 mg PO DAILY Qty: 5 0RF fluticasone propion-salmeterol [Advair Diskus] 100-50 mcg/dose blister with device 1 ea inhalation BID lorazepam 0.5 mg tablet 0.5 mg PO DAILY PRN (Reason: Anxiety) cefuroxime axetil 250 mg tablet 250 mg PO Q12H Qty: 10 0RF
[2023-09-14 22:06] LABS: MANUAL DIFF FLAG NO
[2023-09-14 22:08] LABS: Basophils Percent Auto 0.3 % (0-2); Eosinophils Absolute Auto 0.2 X10*3/uL (0.0-0.4); Eosinophils Percent Auto 2.6 % (0-4); Hemoglobin 10.6 g/dl (12.0-16.0); Imm Gran Abs Auto 0.04 X10*3/uL (0.00-0.03); Imm Gran Pct Auto 0.5 % (0.0-0.4); Mean Corpuscular HGB Conc 32.1 g/dl (31.0-35.0); Mean Corpuscular Hemoglobin 28.2 pg (27.0-33.0); Mean Corpuscular Volume 87.8 fL (80.0-98.0); Mean Platelet Volume 9.3 fL (9.4-12.3); Monocytes Absolute Auto 0.7 X10*3/uL (0.1-1.2); Monocytes Percent Auto 9.1 % (2-11); Neutrophils Absolute Auto 4.6 x10*3/uL (2.0-8.3); Neutrophils Percent Auto 60.5 % (45-73); Platelet Count 281 X10*3/uL (160-400); Red Blood Count 3.76 X10*6/uL (4.20-5.50); Red Cell Distribution Width 13.8 % (11.0-16.0); White Blood Count 7.6 X10*3/uL (4.8-10.8)
[2023-09-14 22:41] LABS: Alanine Aminotransferase 17 U/L (0-31); Albumin Level 4.1 g/dL (3.5-5.0); Alkaline Phosphatase 106 U/L (39-117); Anion Gap 13 (12-20); Aspartate Amino Transferase 16 U/L (5-31); Bilirubin Total 0.1 mg/dL (0.0-1.0); Blood Urea Nitrogen 13 mg/dL (9-16); Calcium 9.3 mg/dL (8.4-10.2); Carbon Dioxide 23 mmol/L (22-29); Chloride 110 mmol/L (96-108); Creatinine Clr Calc Pharmacy 105.9; Estimated Glomerular Filt Rate > 60; Glucose Random 119 mg/dL (60-115); Potassium 3.6 mmol/L (3.3-5.1); Sodium 142 mmol/L (135-145); Total Protein 6.9 g/dL (6.5-8.0)
[2023-09-14 22:49] LABS: Troponin-I High Sensitivity 4.3 ng/L (<3.5-17.0)
[2023-09-14] MEDS: bisacodyL 5 MG TABLET.DR 10 MG PO (23:06)
[2023-09-14] MEDS: Milk of Magnesia 30 ML ORAL.SUSP PO (23:06)
[2023-09-14] MEDS: LORazepam 1 MG TABLET 2 MG PO (23:06)
[2023-09-14] MEDS: Ondansetron ODT 4 MG TAB.RAPDIS TRANSLINGU (23:06)
[2023-09-15 07:35] VITALS: BP 106/72; PULSE 89; RESP 12; O2SAT 98
== END 2023-09-15 10:22 | disposition home or self-care (01) ==
PROVIDERS: Emergency Provider Internal Medicine
DX: K59.00 Constipation, unspecified (principal); R07.89 Other chest pain; R10.13 Epigastric pain; R11.2 Nausea with vomiting, unspecified; F41.1 Generalized anxiety disorder; F43.0 Acute stress reaction; Z79.899 Other long term (current) drug therapy; F17.210 Nicotine dependence, cigarettes, uncomplicated; Z71.6 Tobacco abuse counseling
CPT/HCPCS: 36415; 80053; 84484; 85025; 93005; 99283; 99284

== ENCOUNTER → 2023-09-14 21:35 | Outpatient (BNV) | payer MEDICARE, MEDICAID, SELFPAY | PROVIDERS: Emergency Provider Internal Medicine; Visit Provider Internal Medicine Cardiovascular Disease | DX: R00.0 Tachycardia, unspecified (principal) | CPT/HCPCS: 93010 ==

== ENCOUNTER 2023-09-16 21:03 | Emergency (ER) | payer MEDICARE, MEDICAID, SELFPAY ==
[2023-09-16 21:20] VITALS: BP 144/79; BP 158/88; PULSE 86; PULSE 94; RESP 16; TEMP 36.7; O2SAT 98; BMI 38.8
--- NOTE | 2023-09-16 22:02 | PC.NURSE ---
pt jaelyn from [facility] reporting auditory and visual hallucinations. pt reports the auditory hallucinations are tell her to harm herself and kill herself. pt reports her plan is to cut her wrists. pt reports she is not HI. pt reports anxiety at this time that is causing her to scratch herself up her arms. pt is a 15 minute check at this time, pharmacist in charge owner aware, pt placed in view of charge nurse. pt changed over at this time. pt belongings secured in POD closet.
--- NOTE | 2023-09-16 22:22 | ED_ITS ---
HPI - General Adult General Chief complaint: Psychiatric Symptoms Stated complaint: CHD, AUDITORY & VISUAL HALLUCINATIONS,SI Time Seen by Provider: 09/16/23 22:07 History of Present Illness HPI narrative: The patient is a 47-year-old woman with a history of chronic mental illness who was brought to the hospital by ambulance from [facility] Respite because of worsening hallucinations and thoughts of self-harm. She has a history of multiple episodes of self-mutilation. She says that since Thanksgiving is the anniversary of her mother's and that she and usually feels much worse around this time of year. She has been at rest but because she has been feeling bad but even at rest but she is having hallucinations and increasing thoughts of harming herself. The patient denies fever, sweats, chills or other medical complaints. Related Data Home Medications Medication Instructions Recorded Confirmed trazodone 150 mg tablet 150 mg PO BEDTIME 06/15/23 09/09/23 benztropine 1 mg tablet 1 mg PO BID 08/25/23 09/09/23 buspirone 10 mg tablet 10 mg PO BID 08/25/23 09/09/23 fluoxetine 40 mg capsule 80 mg PO DAILY 08/25/23 09/09/23 lisinopril 5 mg tablet 5 mg PO DAILY 08/25/23 09/09/23 mirtazapine 7.5 mg tablet 7.5 mg PO BEDTIME 08/25/23 09/09/23 montelukast 10 mg tablet 10 mg PO DAILY 08/25/23 09/09/23 naproxen 375 mg tablet 375 mg PO BID 08/25/23 09/09/23 pantoprazole 40 mg tablet,delayed 40 mg PO DAILY 08/25/23 09/09/23 release prazosin 2 mg capsule 2 mg PO BID 08/25/23 09/09/23 fluticasone 100 mcg-salmeterol 50 1 ea inhalation BID 08/31/23 09/09/23 mcg/dose blistr powdr for inhalation (Advair Diskus) lorazepam 0.5 mg tablet 0.5 mg PO DAILY PRN Anxiety 08/31/23 09/09/23 Previous Rx's Medication Instructions Recorded albuterol sulfate 90 mcg/actuation 2 puff inhalation Q4-6H PRN 08/30/23 aerosol inhaler (ProAir HFA) shortness of breath or wheezing #8.5 grams dexamethasone 4 mg tablet 4 mg PO DAILY #5 tabs 08/30/23 cefuroxime axetil 250 mg tablet 250 mg PO Q12H #10 tabs 09/09/23 bisacodyl 5 mg tablet,delayed 10 mg (2 x 5 mg) PO BEDTIME PRN 09/15/23 release (Dulcolax (bisacodyl)) constipation #30 tabs polyethylene glycol 3350 17 17 g PO DAILY #510 grams 09/15/23 gram/dose oral powder (Miralax) Allergies Allergy/AdvReac Type Severity Reaction Status Date / Time azithromycin [AZITHROMYCIN] Allergy Severe Rash Verified 09/16/23 21:31 Fish Containing Products Allergy Severe Anaphylaxis Verified 09/16/23 21:31 codeine [Codeine] Allergy Intermediate Rash Verified 09/16/23 21:31 Penicillins Allergy Intermediate Rash Verified 09/16/23 21:31 prednisone [Prednisone] Allergy Intermediate Rash Verified 09/16/23 21:31 Sulfa (Sulfonamide Allergy Intermediate Rash Verified 09/16/23 21:31 Antibiotics) [Sulfa (Sulfonamides)] ziprasidone [From Geodon] Allergy Intermediate dysuria, Verified 09/16/23 21:31 rash Review of Systems 2 Review of Systems: Yes all other systems are reviewed and are negative PMFSH Past Medical History Medical History Chest pain Acute anxiety COVID-19 Full body hives Major depression Dizziness Suicide attempt UTI (urinary tract infection) Acetaminophen overdose COVID History of attempted suicide History of non-suicidal self-harm Hypomagnesemia Suicide attempt Suicide attempt by acetaminophen overdose Acetaminophen overdose Depression MDD (major depressive disorder), recurrent episode, severe Diabetes type 2, controlled Borderline personality disorder PTSD (post-traumatic stress disorder) Overdose GERD (gastroesophageal reflux disease) Mood disorder Hyperlipidemia Bronchitis Social History Social History Household Members: Other Household Members Other:: care home Housing: Assisted Living Facility Housing Other:: care home Do you presently have visiting nurse or other home services: No Unable to assess alcohol history related to: Unknown Alcohol intake: current Alcohol intake frequency: does not drink Comment: 1:1 sitter Patient Tobacco Use Status: Current everyday Tobacco user Tobacco use type: Cigarette Cigarette Packs Per Day: 1 Cigarettes Per Day: 20.0 Years Smoked: 22 Smoked in Last 30 Days: No e-Cigarette/Vaping Use: Never Used Second Hand Smoke Exposure: Yes Use of substances other than those prescribed or required for medical reasons: No Substance Use Type: Marijuana Advance Directives: No Advance Directives Information Provided: No Patient : No service: No Current occupational status: unemployed and disabled Sexual orientation: Straight/Heterosexual Physical Exam ED Vital Signs: Vital Signs - 24 hr 09/16/23 21:20 09/17/23 00:00 09/17/23 02:00 Temperature 98.0 F Pulse Rate 94 Respiratory Rate 16 18 16 Blood Pressure 144/79 H Pulse Oximetry 98 Oxygen Delivery Method Room Air Room Air Room Air 09/17/23 06:00 09/17/23 07:09 Temperature 98 F Pulse Rate 70 Respiratory Rate 18 16 Blood Pressure 115/65 Pulse Oximetry 98 Oxygen Delivery Method Room Air Room Air BMI result Body Mass Index 38.8 Const Other: The patient was sleeping but awoke easily. She woke to normal mental status. She does not seem in acute distress. She looks chronically ill and has innumerable chronic and subacute wounds to her arms from obvious self inflicted injuries. HENMT Other: Face symmetrical. Mucous membranes moist with Eyes Other: Pupils are round equal, conjunctivae clear Neck Other: No neck swelling. Moving her neck easily. Resp Effort & Inspection: normal respiratory effort Auscultation: clear to auscultation bilaterally Cardio Rate: regular rate Rhythm: regular rhythm Heart sounds: Murmur heart sound present GI Other: Soft nontender Skin Other: The patient's forearms have innumerable wounds of a variety of ages. Some looks subacute but none look acute. Neuro Other: The patient is awake alert. Speech is clear. Face is symmetrical. Moving her extremities normally. She seems grossly neurologically intact. Extrem Other: No peripheral edema. Psych Other: The patient makes good eye contact. She complains of hallucinations but does not seem to have a thought disorder at the moment. Medications Administered Discontinued Medications Generic Name Dose Route Start Last Admin Trade Name Freq PRN Reason Stop Dose Admin Trazodone HCl 150 mg 09/17/23 01:54 09/17/23 02:19 Trazodone Hcl 100 Mg Tablet PO 09/17/23 01:55 150 mg ONCE ONE Administration Medical Decision Making Medical Decision Making MDM Narrative: Patient is a person with chronic mental illness who presents from respite with a complaint of worsening hallucinations and thoughts of self-harm. Clinically she looks clinically stable. I think she will need a crisis evaluation. Not long after my evaluation the patient recanted any thoughts of self-harm and said that she wanted to go home by which she implied that she wanted to go to her care home. Her care home would not accept her back because her medications are at respite. Respite would not accept her back without a crisis evaluation. Therefore the patient was kept in the emergency room until a crisis evaluation can occur. The patient was upset about this but ultimately resigned to staying in the emergency department. She requested a dose of trazodone to help her sleep. This was given. She then fell asleep. There were no other significant events during the overnight shift. I will [facility] and the patient's disposition will likely depend on the crisis evaluation. Lab Data 09/16/23 23:26 09/16/23 23:26 Labs: Lab Results 09/16/23 09/17/23 Range/Units 23:26 01:22 WBC 6.3 (4.8-10.8) X10*3/uL RBC 3.45 L (4.20-5.50) X10*6/uL Hgb 9.7 L (12.0-16.0) g/dl Hct 30.2 L (37.0-47.0) % MCV 87.5 (80.0-98.0) fL MCH 28.1 (27.0-33.0) pg MCHC 32.1 (31.0-35.0) g/dl RDW 13.7 (11.0-16.0) % Plt Count 236 (160-400) X10*3/uL MPV 9.2 L (9.4-12.3) fL Immature Gran % (Auto) 0.5 H (0.0-0.4) % Neut % (Auto) 58.0 (45-73) % Lymph % (Auto) 27.7 (20-40) % [place] % (Auto) 9.9 (2-11) % Eos % (Auto) 3.7 (0-4) % Baso % (Auto) 0.2 (0-2) % Lymph # (Auto) 1.7 (1.2-4.9) X10*3/uL [place] # (Auto) 0.6 (0.1-1.2) X10*3/uL Eos # (Auto) 0.2 (0.0-0.4) X10*3/uL Baso # (Auto) 0.0 (0.0-0.2) X10*3/uL Abs Immat Gran (auto) 0.03 (0.00-0.03) X10*3/uL Absolute Neuts (auto) 3.7 (2.0-8.3) x10*3/uL Absolute Nucleated RBC 0.000 (0.0-0.012) X10*3/uL Nucleated RBC % (auto) 0.0 (0.0-0.2) /100WBC Sodium 142 (135-145) mmol/L Potassium 3.6 (3.3-5.1) mmol/L Chloride 107 (96-108) mmol/L Carbon Dioxide 25 (22-29) mmol/L Anion Gap 14 (12-20) BUN 12 (9-16) mg/dL Creatinine 0.79 (0.5-1.4) mg/dL Estim Creat Clear Calc 104.7 Estimated GFR > 60 Random Glucose 123 H (60-115) mg/dL Calcium 9.0 (8.4-10.2) mg/dL Beta HCG, Quant < 2 mIU/mL Urine Opiates Screen Not Detected (Not Detect) Urine Fentanyl Screen Not Detected (Not Detect) Acetaminophen < 3 (<30) mcg/mL Ur Barbiturates Screen Not Detected (Not Detect) Ur Phencyclidine Scrn Not Detected (Not Detect) Ur Amphetamines Screen Not Detected (Not Detect) U Benzodiazepines Scrn Not Detected (Not Detect) Urine Cocaine Screen Not Detected (Not Detect) U Marijuana (THC) Screen Not Detected (Not Detect) Ethyl Alcohol < 10 mg/dL Discharge Plan Discharge Clinical Impression: PTSD (post-traumatic stress disorder) Patient Disposition: Still a Patient Prescriptions: No Action trazodone 150 mg tablet 150 mg PO BEDTIME fluoxetine 40 mg capsule 80 mg PO DAILY naproxen 375 mg tablet 375 mg PO BID pantoprazole 40 mg tablet,delayed release (DR/EC) 40 mg PO DAILY buspirone 10 mg tablet 10 mg PO BID benztropine 1 mg tablet 1 mg PO BID montelukast 10 mg tablet 10 mg PO DAILY lisinopril 5 mg tablet 5 mg PO DAILY prazosin 2 mg capsule 2 mg PO BID mirtazapine 7.5 mg tablet 7.5 mg PO BEDTIME albuterol sulfate [ProAir HFA] 90 mcg/actuation HFA aerosol inhaler 2 puff inhalation Q4-6H PRN (Reason: shortness of breath or wheezing) Qty: 8.5 0RF dexamethasone 4 mg tablet 4 mg PO DAILY Qty: 5 0RF fluticasone propion-salmeterol [Advair Diskus] 100-50 mcg/dose blister with device 1 ea inhalation BID lorazepam 0.5 mg tablet 0.5 mg PO DAILY PRN (Reason: Anxiety) cefuroxime axetil 250 mg tablet 250 mg PO Q12H Qty: 10 0RF polyethylene glycol 3350 [Miralax] 17 gram/dose powder 17 g PO DAILY Qty: 510 0RF bisacodyl [Dulcolax (bisacodyl)] 5 mg tablet,delayed release (DR/EC) 10 mg PO BEDTIME PRN (Reason: constipation) Qty: 30 0RF Interventions: [place]-Suicide Risk Severity Scale Last Done: 09/17/23 07:09
--- NOTE | 2023-09-16 22:26 | PC.NURSE ---
pt requesting sandwich, provider okayed. pt sitting up eating sandwich, no acute distress.
--- NOTE | 2023-09-16 23:03 | PC.NURSE ---
pt sleeping, respirations even and unlabored.
[2023-09-16 23:31] LABS: MANUAL DIFF FLAG NO
[2023-09-16 23:32] LABS: Basophils Percent Auto 0.2 % (0-2); Eosinophils Absolute Auto 0.2 X10*3/uL (0.0-0.4); Eosinophils Percent Auto 3.7 % (0-4); Hematocrit 30.2 % (37.0-47.0); Hemoglobin 9.7 g/dl (12.0-16.0); Imm Gran Abs Auto 0.03 X10*3/uL (0.00-0.03); Imm Gran Pct Auto 0.5 % (0.0-0.4); Lymphocytes Absolute Auto 1.7 X10*3/uL (1.2-4.9); Lymphocytes Percent Auto 27.7 % (20-40); Mean Corpuscular HGB Conc 32.1 g/dl (31.0-35.0); Mean Corpuscular Hemoglobin 28.1 pg (27.0-33.0); Mean Corpuscular Volume 87.5 fL (80.0-98.0); Mean Platelet Volume 9.2 fL (9.4-12.3); Monocytes Absolute Auto 0.6 X10*3/uL (0.1-1.2); Monocytes Percent Auto 9.9 % (2-11); Neutrophils Absolute Auto 3.7 x10*3/uL (2.0-8.3); Platelet Count 236 X10*3/uL (160-400); Red Blood Count 3.45 X10*6/uL (4.20-5.50); Red Cell Distribution Width 13.7 % (11.0-16.0); White Blood Count 6.3 X10*3/uL (4.8-10.8)
[2023-09-16 23:47] LABS: Anion Gap 14 (12-20); Blood Urea Nitrogen 12 mg/dL (9-16); Carbon Dioxide 25 mmol/L (22-29); Chloride 107 mmol/L (96-108); Creatinine Clr Calc Pharmacy 104.7; Estimated Glomerular Filt Rate > 60; Glucose Random 123 mg/dL (60-115); Potassium 3.6 mmol/L (3.3-5.1); Sodium 142 mmol/L (135-145)
[2023-09-16 23:54] LABS: Ethanol < 10 mg/dL
[2023-09-16 23:59] LABS: Acetaminophen LAB < 3 mcg/mL (<30); HCG Quantitative < 2 mIU/mL
[2023-09-17] VITALS: RESP 18
--- NOTE | 2023-09-17 01:09 | PC.NURSE ---
pt ambulated to bathroom with steady gait, urine sample obtained.
[2023-09-17 01:35] LABS: Amphetamine Screen Urine Not Detected (Not Detect); Barbiturates, Urine Not Detected (Not Detect); Benzodiazepines Screen Urine Not Detected (Not Detect); Cannabinoid Screen Urine Not Detected (Not Detect); Cocaine Screen Urine Not Detected (Not Detect); Fentanyl, urine Not Detected (Not Detect); Opiate Screen Urine Not Detected (Not Detect); Phencyclidine Screen Urine Not Detected (Not Detect)
[2023-09-17 02:00] VITALS: RESP 16
[2023-09-17] MEDS: traZODone HCL 100 MG TABLET 150 MG PO (02:19)
[2023-09-17 06:00] VITALS: RESP 18
--- NOTE | 2023-09-17 07:08 | PC.NURSE ---
report from mireya gamino. pt breathing well, denies SI/HI/SIB. no hallucinations apparent in conversing. VSS. resting. pt going back to sleep
[2023-09-17 07:09] VITALS: BP 115/65; PULSE 70; RESP 16; TEMP 36.6; O2SAT 98
--- NOTE | 2023-09-17 08:40 | MHC.CARE ---
per Yoseph zuñiga [facility], patient is not able to return to [facility] at this time. If patient discharged, co-response can bring her clothes/ items she brought to the [facility] back to her [facility].
[2023-09-17 09:09] VITALS: BP 145/68; PULSE 75; O2SAT 94
--- NOTE | 2023-09-17 09:30 | PC.NURSE ---
offered breakfast, calm, coop. pa at bedside talking w pt. no distress. denies si
--- NOTE | 2023-09-17 10:31 | PHA.MEDREC ---
Pharmacy Consult ? Medication Reconciliation Pharmacy has completed the medication reconciliation.MED REC COMPLETE USING LIST PROVIDED BY [facility] [employer] AND CLAIM HISTORY
== END 2023-09-17 10:49 | disposition home or self-care (01) ==
PROVIDERS: Emergency Provider Emergency Medicine; PCP Nurse Practitioner Family
DX: F43.10 Post-traumatic stress disorder, unspecified (principal); R45.851 Suicidal ideations; R44.3 Hallucinations, unspecified
CPT/HCPCS: 36415; 80048; 80143; 80307; 84702; 85025; 99285; S9485

== ENCOUNTER 2023-09-17 19:50 | Inpatient (IN) | payer MEDICARE, MEDICAID, SELFPAY ==
--- NOTE | 2023-09-17 19:54 | ECG_ITS ---
Test Reason : OVERDOSE Blood Pressure : / mmHG Vent. Rate : 104 BPM Atrial Rate : 104 BPM P-R Int : 174 ms QRS Dur : 078 ms QT Int : 348 ms P-R-T Axes : 060 053 062 degrees QTc Int : 457 ms Sinus tachycardia Possible Left atrial enlargement Borderline ECG When compared with ECG of 14-SEP-2023 21:35, No significant change was found Referred By: Viki Quintero Electronically Signed By:MAURI COLE
[2023-09-17 20:05] VITALS: BP 138/80; BP 145/84; PULSE 107; PULSE 140; RESP 14; O2SAT 96; BMI 38.8
[2023-09-17 20:08] VITALS: BP 145/84; PULSE 107; RESP 14; O2SAT 96
--- NOTE | 2023-09-17 20:08 | ED_ITS ---
HPI - Overdose General Chief Complaint: Overdose Stated Complaint: TI SUICIDE ATTEMPT STOMACH PAIN Time Seen by Provider: 09/17/23 19:51 Source: patient and EMS Mode of arrival: EMS History of Present Illness HPI Narrative: This is a 47-year-old female with longstanding history of intentional overdose, depression, who arrives via EMS stating that she took 50 of the maximum Strength Tylenol at approximately 19:30 this evening. At this time she denies any dizziness/headache/shortness of breath or chest pain and is adamantly refusing to take activated charcoal peer Related Data Home Medications Medication Instructions Recorded Confirmed trazodone 150 mg tablet 150 mg PO BEDTIME 06/15/23 09/17/23 benztropine 1 mg tablet 1 mg PO BID 08/25/23 09/17/23 buspirone 10 mg tablet 10 mg PO BID 08/25/23 09/17/23 fluoxetine 40 mg capsule 80 mg PO DAILY 08/25/23 09/17/23 lisinopril 5 mg tablet 5 mg PO DAILY 08/25/23 09/17/23 mirtazapine 7.5 mg tablet 7.5 mg PO BEDTIME 08/25/23 09/17/23 prazosin 2 mg capsule 4 mg PO BEDTIME 08/25/23 09/17/23 fluticasone 100 mcg-salmeterol 50 1 ea inhalation BID 08/31/23 09/17/23 mcg/dose blistr powdr for inhalation (Advair Diskus) lorazepam 0.5 mg tablet 0.5 mg PO DAILY PRN Anxiety 08/31/23 09/17/23 albuterol sulfate 90 mcg/actuation 2 inh inhalation Q4H PRN Shortness 09/17/23 09/17/23 aerosol inhaler (Ventolin HFA) Of Breath Or Wheezing atorvastatin 10 mg tablet 10 mg PO DAILY 09/17/23 09/17/23 famotidine 10 mg tablet 10 mg PO BID@0630,1630 09/17/23 09/17/23 fluphenazine HCl 5 mg tablet 5 mg PO BID 09/17/23 09/17/23 lamotrigine 25 mg tablet 25 mg PO DAILY 09/17/23 09/17/23 lamotrigine 25 mg tablet 50 mg PO DAILY 09/17/23 09/17/23 metformin 500 mg tablet 500 mg PO BID 09/17/23 09/17/23 Allergies Allergy/AdvReac Type Severity Reaction Status Date / Time azithromycin [AZITHROMYCIN] Allergy Severe Rash Verified 09/16/23 21:31 Fish Containing Products Allergy Severe Anaphylaxis Verified 09/16/23 21:31 codeine [Codeine] Allergy Intermediate Rash Verified 09/16/23 21:31 Penicillins Allergy Intermediate Rash Verified 09/16/23 21:31 prednisone [Prednisone] Allergy Intermediate Rash Verified 09/16/23 21:31 Sulfa (Sulfonamide Allergy Intermediate Rash Verified 09/16/23 21:31 Antibiotics) [Sulfa (Sulfonamides)] ziprasidone [From Geodon] Allergy Intermediate dysuria, Verified 09/16/23 21:31 rash Review of Systems 2 Review of Systems: Pertinent positives and negatives as stated in [facility] Past Medical History Source: nursing notes reviewed Medical History Chest pain Acute anxiety COVID-19 Full body hives Major depression Dizziness Suicide attempt UTI (urinary tract infection) Acetaminophen overdose COVID History of attempted suicide History of non-suicidal self-harm Hypomagnesemia Suicide attempt Suicide attempt by acetaminophen overdose Acetaminophen overdose Depression MDD (major depressive disorder), recurrent episode, severe Diabetes type 2, controlled Borderline personality disorder PTSD (post-traumatic stress disorder) Overdose GERD (gastroesophageal reflux disease) Mood disorder Hyperlipidemia Bronchitis Social History Social History Household Members: Other Household Members Other:: [facility]dc Housing: Assisted Living Facility Housing Other:: [facility]dc Do you presently have visiting nurse or other home services: No Unable to assess alcohol history related to: Unknown Alcohol intake: current Alcohol intake frequency: does not drink Comment: 1:1 sitter Patient Tobacco Use Status: Current everyday Tobacco user Tobacco use type: Cigarette Cigarette Packs Per Day: 1 Cigarettes Per Day: 20.0 Years Smoked: 22 Smoked in Last 30 Days: No e-Cigarette/Vaping Use: Never Used Second Hand Smoke Exposure: Yes Use of substances other than those prescribed or required for medical reasons: No Substance Use Type: Marijuana Advance Directives: No Advance Directives Information Provided: No Patient : No service: No Current occupational status: unemployed and disabled Sexual orientation: Straight/Heterosexual Physical Exam 2 Vital Signs: Vital Signs: Last Vital Signs Pulse 107 H 09/17/23 20:08 Resp 14 09/17/23 20:08 BP 145/84 H 09/17/23 20:08 Pulse Ox 96 09/17/23 20:08 O2 Del Method Room Air 09/17/23 20:08 BMI result Body Mass Index 38.8 VITAL SIGNS: Reviewed. GENERAL: Well developed, well nourished, in no acute distress. HEAD: Normocephalic/atraumatic EYES: PERRLA, EOMI EARS: Ext canals without abnormality NOSE: Nares patent bilateral OROPHARYNX: no oral lesions noted, posterior pharynx clear NECK: Supple, no adenopathy LUNGS: Normal breath sounds. No adventitious sounds or accessory muscle use. SpO2<96> CARDIOVASCULAR: Regular rate and rhythm without noted murmurs ABDOMEN: Soft, non-tender, non-distended with bowel sounds. Superficial lacerations to anterior abdomen that patient states are from previous and not inflicted today MUSCULOSKELETAL: No tenderness, deformities, or effusions noted on gross inspection. EXTREMITIES: No cyanosis, clubbing or edema. BILATERAL UPPER EXTREMITIES: Superficial lacerations that are hemostatic and do not require intervention. SKIN: Inspection of the skin reveals no rashes NEUROLOGIC: Alert and oriented x 4. Strength and sensation to light touch were grossly intact x 4, cranial nerves 2-12 are grossly intact. Medications Administered Generic Name Dose Route Start Last Admin Trade Name Freq PRN Reason Stop Dose Admin Sodium Chloride 1,000 mls @ 999 mls/hr 09/17/23 21:15 09/17/23 21:11 Ns IV 09/17/23 22:15 999 mls/hr .Q1H1M YULY Administration Discontinued Medications Generic Name Dose Route Start Last Admin Trade Name Freq PRN Reason Stop Dose Admin Charcoal 50 gm 09/17/23 20:48 09/17/23 21:11 Activated Charcoal 50 Gm/240 Ml Oral.Susp PO 09/17/23 20:49 50 gm ONCE ONE Administration Ondansetron HCl 4 mg 09/17/23 20:50 09/17/23 21:11 Ondansetron Hcl 4 Mg/2 Ml Vial IVPUSH 09/17/23 20:51 4 mg ONCE ONE Administration Medical Decision Making Medical Decision Making MDM Narrative: This is a 47-year-old female with recurrent presentations for overdose on Tylenol, this evening she overdose at approximately 19:30, historically as well as this time patient is refusing any activated charcoal. Poison Control was contacted in their recommendations can be found within the nursing note. Patient placed on a Section 12 and care team consultation. I reviewed all investigations and hematologic indices are negative for leukocytosis left shift, there is no thrombocytopenia and there is a chronically stable normocytic anemia. Coagulation studies are grossly within normal limits. Chemistry indices are grossly within normal limits without KANNAN there is no electrolyte or liver enzyme derangements at this time. Magnesium is within normal limits and high sensitivity troponin is undetectable. Urinalysis is negative for UTI or hematuria. Toxicology demonstrates an acetaminophen level of 73. Otherwise urine toxicology is negative for acute findings and salicylates are undetectable as well as alcohol. A poison Control recommends initiation Mucomyst, this was started. 2058: I discussed case with inpatient hospitalist who accepts admission. At this time patient has received a total of 100gm of activated charcoal. Differential Diagnosis Differential Diagnoses: The differential diagnosis associated with the presentation includes Please see the discussion above Admission/Observation Consideration of admission/observation: Escalation of care including admission/observation considered Please see the discussion above Consult Healthcare Provider Management of the patient was discussed with: Hospitalist and [employer] Please see the discussion above Lab Data MDM Lab Attestation statement: I reviewed the patient's lab results. Please see the discussion above 09/17/23 20:15 09/17/23 20:15 Labs: Lab Results 09/17/23 09/17/23 09/17/23 Range/Units 20:15 20:26 21:04 WBC 6.3 (4.8-10.8) X10*3/uL RBC 3.75 L (4.20-5.50) X10*6/uL Hgb 11.0 L (12.0-16.0) g/dl Hct 33.3 L (37.0-47.0) % MCV 88.8 (80.0-98.0) fL MCH 29.3 (27.0-33.0) pg MCHC 33.0 (31.0-35.0) g/dl RDW 13.4 (11.0-16.0) % Plt Count 278 (160-400) X10*3/uL MPV 9.6 (9.4-12.3) fL Immature Gran % (Auto) 0.5 H (0.0-0.4) % Neut % (Auto) 58.1 (45-73) % Lymph % (Auto) 27.2 (20-40) % [place] % (Auto) 9.9 (2-11) % Eos % (Auto) 3.8 (0-4) % Baso % (Auto) 0.5 (0-2) % Lymph # (Auto) 1.7 (1.2-4.9) X10*3/uL [place] # (Auto) 0.6 (0.1-1.2) X10*3/uL Eos # (Auto) 0.2 (0.0-0.4) X10*3/uL Baso # (Auto) 0.0 (0.0-0.2) X10*3/uL Abs Immat Gran (auto) 0.03 (0.00-0.03) X10*3/uL Absolute Neuts (auto) 3.6 (2.0-8.3) x10*3/uL Absolute Nucleated RBC 0.000 (0.0-0.012) X10*3/uL Nucleated RBC % (auto) 0.0 (0.0-0.2) /100WBC PT 10.9 L (11.1-13.3) SEC INR 0.9 (0.9-1.1) VBG pH 7.45 H (7.32-7.43) VBG pCO2 34 mmHg VBG pO2 98 mmHg VBG HCO3 24 (22-26) mmol/L VBG O2 Saturation 99.0 % VBG Base Excess 1.1 mmol/L Sodium 141 (135-145) mmol/L Potassium 3.8 (3.3-5.1) mmol/L Chloride 107 (96-108) mmol/L Carbon Dioxide 23 (22-29) mmol/L Anion Gap 15 (12-20) BUN 12 (9-16) mg/dL Creatinine 0.84 (0.5-1.4) mg/dL Estim Creat Clear Calc 98.6 Estimated GFR > 60 Random Glucose 121 H (60-115) mg/dL Calcium 8.9 (8.4-10.2) mg/dL Magnesium 1.7 (1.6-2.6) mg/dL Total Bilirubin 0.1 (0.0-1.0) mg/dL AST 19 (5-31) U/L ALT 16 (0-31) U/L Alkaline Phosphatase 115 (39-117) U/L Troponin I High Sens < 2.7 (<3.5-17.0) ng/L Total Protein 7.4 (6.5-8.0) g/dL Albumin 4.1 (3.5-5.0) g/dL Urine Color Yellow Urine Appearance Clear Urine pH 6.0 (5.0-9.0) Ur Specific [place] <= 1.005 (1.005-1.025) Urine Protein Negative (Neg-Trace) mg/dL Urine Glucose (UA) Negative (Negative) mg/dL Urine Ketones Negative (Negative) mg/dL Urine Blood Negative (Negative) Urine Nitrite Negative (Negative) Ur Leukocyte Esterase Negative (Negative) Salicylates < 5.0 L (15-30) mg/dL Urine Opiates Screen Not Detected (Not Detect) Urine Fentanyl Screen Not Detected (Not Detect) Acetaminophen 73 H* (<30) mcg/mL Ur Barbiturates Screen Not Detected (Not Detect) Ur Phencyclidine Scrn Not Detected (Not Detect) Ur Amphetamines Screen Not Detected (Not Detect) U Benzodiazepines Scrn Not Detected (Not Detect) Urine Cocaine Screen Not Detected (Not Detect) U Marijuana (THC) Screen Not Detected (Not Detect) Ethyl Alcohol < 10 mg/dL Independent Interpretation I performed an independent interpretation of an: EKG Interpretation: Sinus tachycardia, HR-104, no STEMI, ME/QRS/QTC is within normal limits, there is no QT or QRS or QTC prolongation. External Record Review External record reviewed: Inpatient record, Outpatient record, Prior outpatient labs and Prior outpatient radiology Chronic Conditions Patient?s care impacted by: Diabetes and Other Depression Critical Care Time Critical Care Time Critical Care Time: Yes Total Critical Care Time: 60 Attestation: I personally attest to this time spent taking care of the patient. Discharge Plan Discharge Clinical Impression: Suicide attempt by acetaminophen overdose Patient Disposition: Admitted As Inpatient
--- NOTE | 2023-09-17 20:15 | PC.NURSE ---
Pt ptresents to ED via AMS after taking 50 extra strength tylenol at home with suicidal intent. Pt is A&Ox4, GCS 15, with warm, dry skin. Pt has superficial lacerations throughout, none of which are from today. Pt is complaining of nausea and dizziness. Pt was put on the monitor, labs drawn and sent, EKG obtained.
[2023-09-17 20:22] LABS: MANUAL DIFF FLAG NO
[2023-09-17 20:24] LABS: Basophils Percent Auto 0.5 % (0-2); Eosinophils Absolute Auto 0.2 X10*3/uL (0.0-0.4); Eosinophils Percent Auto 3.8 % (0-4); Hematocrit 33.3 % (37.0-47.0); Imm Gran Abs Auto 0.03 X10*3/uL (0.00-0.03); Imm Gran Pct Auto 0.5 % (0.0-0.4); Lymphocytes Absolute Auto 1.7 X10*3/uL (1.2-4.9); Lymphocytes Percent Auto 27.2 % (20-40); Mean Corpuscular Hemoglobin 29.3 pg (27.0-33.0); Mean Corpuscular Volume 88.8 fL (80.0-98.0); Mean Platelet Volume 9.6 fL (9.4-12.3); Monocytes Absolute Auto 0.6 X10*3/uL (0.1-1.2); Monocytes Percent Auto 9.9 % (2-11); Neutrophils Absolute Auto 3.6 x10*3/uL (2.0-8.3); Neutrophils Percent Auto 58.1 % (45-73); Platelet Count 278 X10*3/uL (160-400); Red Blood Count 3.75 X10*6/uL (4.20-5.50); Red Cell Distribution Width 13.4 % (11.0-16.0); White Blood Count 6.3 X10*3/uL (4.8-10.8)
[2023-09-17 20:30] LABS: INTERNATIONAL NORM RATIO 0.9 (0.9-1.1); Prothrombin Time 10.9 SEC (11.1-13.3)
[2023-09-17 20:37] LABS: Appearance Urine Clear; Color Urine Yellow; Glucose Urine UA Negative (Negative); Leukocyte Esterase Urine Negative (Negative); Nitrite Urine Negative (Negative); Specific Gravity - Urine <= 1.005 (1.005-1.025); Urine Blood Negative (Negative); Urine Ketones Negative (Negative); Urine Protein Negative (Neg-Trace)
--- NOTE | 2023-09-17 20:41 | PC.NURSE ---
Spoke with poison control. Recommend: Zofran and activated charcoal, PC advises against g-tube for pt but pt is currently refusing activated charcoal 4 hour tylenol level When tylenol is <10, we can stop checking tylenol level q8h labs (tylenol, LFT, INR, BMP, VBG) mucomist and full 21h course of anecdote: 150mg/kg in 200mL D5W over 1 hour 50mg/kg in 500mL over 4 hours 100mg/kg in 1,000mL D5W over 16 hours
[2023-09-17 20:42] LABS: Amphetamine Screen Urine Not Detected (Not Detect); Barbiturates, Urine Not Detected (Not Detect); Benzodiazepines Screen Urine Not Detected (Not Detect); Cannabinoid Screen Urine Not Detected (Not Detect); Cocaine Screen Urine Not Detected (Not Detect); Fentanyl, urine Not Detected (Not Detect); Opiate Screen Urine Not Detected (Not Detect); Phencyclidine Screen Urine Not Detected (Not Detect)
[2023-09-17 20:43] LABS: Alanine Aminotransferase 16 U/L (0-31); Albumin Level 4.1 g/dL (3.5-5.0); Alkaline Phosphatase 115 U/L (39-117); Anion Gap 15 (12-20); Aspartate Amino Transferase 19 U/L (5-31); Bilirubin Total 0.1 mg/dL (0.0-1.0); Blood Urea Nitrogen 12 mg/dL (9-16); Calcium 8.9 mg/dL (8.4-10.2); Carbon Dioxide 23 mmol/L (22-29); Chloride 107 mmol/L (96-108); Creatinine Clr Calc Pharmacy 98.6; Estimated Glomerular Filt Rate > 60; Ethanol < 10 mg/dL; Glucose Random 121 mg/dL (60-115); Magnesium 1.7 mg/dL (1.6-2.6); Potassium 3.8 mmol/L (3.3-5.1); Sodium 141 mmol/L (135-145); Total Protein 7.4 g/dL (6.5-8.0)
[2023-09-17 20:47] LABS: Troponin-I High Sensitivity < 2.7 ng/L (<3.5-17.0)
--- NOTE | 2023-09-17 20:47 | PC.NURSE ---
Uzair assigned to pt.
[2023-09-17 20:50] LABS: Acetaminophen LAB 73 mcg/mL (<30); Salicylate < 5.0 mg/dL (15-30)
[2023-09-17 21:08] LABS: Venous Blood Gas Refer to POC result
[2023-09-17 21:09] LABS: VBG Base Excess 1.1 mmol/L; VBG HCO3 24 mmol/L (22-26); VBG pCO2 34 mmHg; VBG pH 7.45 (7.32-7.43); VBG pO2 98 mmHg
[2023-09-17] MEDS: 0.9 % Sodium Chloride 1,000 ML 999 ML IV (21:11)
[2023-09-17] MEDS: ondansetron HCL 4 MG/2 ML VIAL IVPUSH (21:11)
[2023-09-17] MEDS: Activated charcoaL 50 GM/240 ML ORAL.SUSP PO ×2 (21:11→21:43)
--- NOTE | 2023-09-17 21:26 | P.HPHOSP_ITS ---
History of Present Illness Date of Service: 09/17/23 Attending physician on admission: Rod Mccoy Chief Complaint: Tylenol overdose Date of Service: 09/17/23 Chief Complaint: Tylenol Overdose Patient is a 47-year-old obese (BMI 38.8) white female with an PMH of type 2 diabetes mellitus, hyperlipidemia, GERD and an extensive psychiatric history history of PTSD, anxiety/depression, borderline personality disorder, and multiple suicide attempts in the past who presented to the emergency room after attempting to commit suicide by ingesting 50 extra strength Tylenol in a suicide attempt. She reported still feeling suicidal when I got to see her. She however denies any associated chest pain, abdominal pain, nausea, vomiting, diarrhea, constipation or urinary symptoms. Initial evaluation in the ED revealed mildly elevated blood pressure and heart rate Initial lab work is significant for hemoglobin of 11.0 which is around her baseline and a serum acetaminophen level of 73 mcg/mL with normal LFTs. She was started on activated charcoal and NAC. She has a sitter at bedside and will be admitted for further management Review of Systems 2 Review of Systems: Yes all other systems are reviewed and are negative [facility] Medical History Chest pain Acute anxiety COVID-19 Full body hives Major depression Dizziness Suicide attempt UTI (urinary tract infection) Acetaminophen overdose COVID History of attempted suicide History of non-suicidal self-harm Hypomagnesemia Suicide attempt Suicide attempt by acetaminophen overdose Acetaminophen overdose Depression MDD (major depressive disorder), recurrent episode, severe Diabetes type 2, controlled Borderline personality disorder PTSD (post-traumatic stress disorder) Overdose GERD (gastroesophageal reflux disease) Mood disorder Hyperlipidemia Bronchitis Functional capacity: independent ambulation Social History Household Members: Other Household Members Other:: [facility] Housing: Assisted Living Facility Housing Other:: [facility] Do you presently have visiting nurse or other home services: No Unable to assess alcohol history related to: Unknown Alcohol intake: current Alcohol intake frequency: does not drink Comment: 1:1 sitter Patient Tobacco Use Status: Current everyday Tobacco user Tobacco use type: Cigarette Cigarette Packs Per Day: 1 Cigarettes Per Day: 20.0 Years Smoked: 22 Smoked in Last 30 Days: No e-Cigarette/Vaping Use: Never Used Second Hand Smoke Exposure: Yes Use of substances other than those prescribed or required for medical reasons: No Substance Use Type: Marijuana Advance Directives: No Advance Directives Information Provided: No Patient : No service: No Current occupational status: unemployed and disabled Sexual orientation: Straight/Heterosexual Meds Allergies Allergy/AdvReac Type Severity Reaction Status Date / Time azithromycin [AZITHROMYCIN] Allergy Severe Rash Verified 09/16/23 21:31 Fish Containing Products Allergy Severe Anaphylaxis Verified 09/16/23 21:31 codeine [Codeine] Allergy Intermediate Rash Verified 09/16/23 21:31 Penicillins Allergy Intermediate Rash Verified 09/16/23 21:31 prednisone [Prednisone] Allergy Intermediate Rash Verified 09/16/23 21:31 Sulfa (Sulfonamide Allergy Intermediate Rash Verified 09/16/23 21:31 Antibiotics) [Sulfa (Sulfonamides)] ziprasidone [From Geodon] Allergy Intermediate dysuria, Verified 09/16/23 21:31 rash Active Medications: Current Medications Acetylcysteine 15,000 mg/ (Dextrose) 275 mls @ 275 mls/hr IV ONCE ONE Stop: 09/17/23 21:56 Sodium Chloride (Ns) 1,000 mls @ 999 mls/hr IV .Q1H1M YULY Stop: 09/17/23 22:15 Last Admin: 09/17/23 21:11 Dose: 999 mls/hr Acetylcysteine 5,000 mg/ (Dextrose) 525 mls @ 131.25 mls/hr IV ONCE ONE Stop: 09/18/23 01:59 Acetylcysteine 10,000 mg/ (Dextrose) 1,050 mls @ 65.625 mls/hr IV ONCE ONE Stop: 09/18/23 17:59 Home Medications Medication Instructions Recorded Confirmed Last Taken Type trazodone 150 mg tablet 150 mg PO BEDTIME 06/15/23 09/17/23 Unknown History benztropine 1 mg tablet 1 mg PO BID 08/25/23 09/17/23 Unknown History buspirone 10 mg tablet 10 mg PO BID 08/25/23 09/17/23 Unknown History fluoxetine 40 mg capsule 80 mg PO DAILY 08/25/23 09/17/23 Unknown History lisinopril 5 mg tablet 5 mg PO DAILY 08/25/23 09/17/23 Unknown History mirtazapine 7.5 mg tablet 7.5 mg PO BEDTIME 08/25/23 09/17/23 Unknown History prazosin 2 mg capsule 4 mg PO BEDTIME 08/25/23 09/17/23 Unknown History fluticasone 100 mcg-salmeterol 50 1 ea inhalation BID 08/31/23 09/17/23 Unknown History mcg/dose blistr powdr for inhalation (Advair Diskus) lorazepam 0.5 mg tablet 0.5 mg PO DAILY PRN Anxiety 08/31/23 09/17/23 Unknown History albuterol sulfate 90 mcg/actuation 2 inh inhalation Q4H PRN Shortness 09/17/23 09/17/23 Unknown History aerosol inhaler (Ventolin HFA) Of Breath Or Wheezing atorvastatin 10 mg tablet 10 mg PO DAILY 09/17/23 09/17/23 Unknown History famotidine 10 mg tablet 10 mg PO BID@0630,1630 09/17/23 09/17/23 Unknown History fluphenazine HCl 5 mg tablet 5 mg PO BID 09/17/23 09/17/23 Unknown History ibuprofen 400 mg tablet 800 mg PO Q6H PRN Pain (Scale 09/17/23 09/17/23 Unknown History Score 4-6) lamotrigine 25 mg tablet 25 mg PO DAILY 09/17/23 09/17/23 Unknown History lamotrigine 25 mg tablet 50 mg PO DAILY 09/17/23 09/17/23 Unknown History metformin 500 mg tablet 500 mg PO BIDWM 09/17/23 09/17/23 Unknown History montelukast 10 mg tablet 10 mg PO BEDTIME 09/17/23 09/17/23 Unknown History pantoprazole 40 mg tablet,delayed 40 mg PO DAILY 09/17/23 09/17/23 Unknown History release Physical Exam 2 Vital Signs and Narrative: Vital Signs: Last Vital Signs Pulse 107 H 09/17/23 20:08 Resp 14 09/17/23 20:08 BP 145/84 H 09/17/23 20:08 Pulse Ox 96 09/17/23 20:08 O2 Del Method Room Air 09/17/23 20:08 BMI result Body Mass Index 38.8 General: Obese WF in bed. Awake and alert. In no apparent distress Eyes: No pallor or jaundice. PERRLA, EOMI HENT: Moist oral mucus membranes. No oropharyngeal lesions. Neck: Supple. No cervical adenopathy. No JVD Cardiovascular: Regular rate and rhythm. Normal heart sounds. No murmurs, rubs or gallops. No JVD. No peripheral edema. Respiratory: Normal respiratory effort with no accessory muscle use. CTA bilaterally Gastrointestinal: Abdomen is soft, non-tender, non-distended. Normoactive bowel sounds. No hepatosplenomegally Extremities: No edema. No calf tenderness. Good peripheral pulses Skin - Warm/Dry. No rashes. No mottling. Capillary refill is normal at < 2 seconds Neurological - AAOx4. Intact speech & cognition. Normal gait & balance. CN II - XII grossly intact but not individually tested. No motor or sensory deficits Hematologic: No bleeding. No ecchymosis. No swollen or tender lymph nodes. Psychiatric: Cooperative. Appropriate mood and affect . Results Labs 09/17/23 20:15 09/17/23 20:15 Labs: Laboratory Results - last 24 hr 09/17/23 09/17/23 09/17/23 20:15 20:26 21:04 MCV 88.8 MCH 29.3 MCHC 33.0 RDW 13.4 Plt Count 278 MPV 9.6 Immature Gran % (Auto) 0.5 H Neut % (Auto) 58.1 Lymph % (Auto) 27.2 [place] % (Auto) 9.9 Eos % (Auto) 3.8 Baso % (Auto) 0.5 Lymph # (Auto) 1.7 [place] # (Auto) 0.6 Eos # (Auto) 0.2 Baso # (Auto) 0.0 Abs Immat Gran (auto) 0.03 Absolute Neuts (auto) 3.6 Absolute Nucleated RBC 0.000 Nucleated RBC % (auto) 0.0 PT 10.9 L INR 0.9 VBG pH 7.45 H VBG pCO2 34 VBG pO2 98 VBG HCO3 24 VBG O2 Saturation 99.0 VBG Base Excess 1.1 Anion Gap 15 Estim Creat Clear Calc 98.6 Estimated GFR > 60 Random Glucose 121 H Calcium 8.9 Magnesium 1.7 Total Bilirubin 0.1 AST 19 ALT 16 Alkaline Phosphatase 115 Total Protein 7.4 Albumin 4.1 Urine Color Yellow Urine Appearance Clear Urine pH 6.0 Ur Specific [place] <= 1.005 Urine Protein Negative Urine Glucose (UA) Negative Urine Ketones Negative Urine Blood Negative Urine Nitrite Negative Ur Leukocyte Esterase Negative Salicylates < 5.0 L Urine Opiates Screen Not Detected Urine Fentanyl Screen Not Detected Acetaminophen 73 H* Ur Barbiturates Screen Not Detected Ur Phencyclidine Scrn Not Detected Ur Amphetamines Screen Not Detected U Benzodiazepines Scrn Not Detected Urine Cocaine Screen Not Detected U Marijuana (THC) Screen Not Detected Ethyl Alcohol < 10 Assessment and Plan (1) Suicide attempt by acetaminophen overdose: Status: Acute (2) PTSD (post-traumatic stress disorder): Status: Acute (3) Diabetes type 2, controlled: Status: Acute (4) GERD (gastroesophageal reflux disease): Status: Acute (5) Hyperlipidemia: Status: Acute Plan 47-year-old obese (BMI 38.8) white female with an PMH of type 2 diabetes mellitus, hyperlipidemia, GERD and an extensive psychiatric history history of PTSD, anxiety/depression, borderline personality disorder, and multiple suicide attempts in the past here with 1. Acetaminophen overdose - in a suicide attempt - serum acetaminophen level is 73 mcg/mL - received activated charcoal in ED - also started on Mucomyst - admit to telemetry and closely monitor - 1:1 for suicide watch - monitor serum acetaminophen levels - monitor liver functions Resume the rest of her outpatint medications Total time managing care of this patient today: 75 minutes. Quality Stroke Does the patient have a stroke diagnosis?: No VTE Prior VTE?: No VTE Risk Level:: Medical - moderate - high VTE Device Contraindication: Treatment Not Indicated VTE Drug Contraindication: N/A - Med Ordered
--- NOTE | 2023-09-17 21:29 | MHC.CARE ---
CARE Team meets with pt who agrees to take charcoal and engage in treatment. Appealing to pt's care for others is helpful during these situation. Example- we all care about you and it is hurtful to us to watch you harm yourself. Pt is not medically cleared at this time. Please re-consult the CARE Team when pt is medically cleared.
[2023-09-17] MEDS: Acetylcysteine 15,000 MG in Dextrose 5 % 200 ML 275 MG IV (21:35)
--- NOTE | 2023-09-17 21:47 | PHA.MEDREC ---
Addendum entered by Kell Rowell RPh 09/18/23 07:20: [facility] LAMOTRIGINE IS 25 MG DAILY FROM 09/16 THROUGH 09/30 AND 50 MG STARTING 10/01. Original Note: Pharmacy Consult ? Medication Reconciliation Pharmacy has completed the medication reconciliation. med rec completed per claim history. Left note for [facility] to follow up in AM for a list from her custodial ( [place] [facility] [phone])
[2023-09-17] MEDS: Enoxaparin Sodium 40 MG/0.4 ML SYRINGE SUBCUT (22:26)
[2023-09-17 23:12] VITALS: BP 139/67; PULSE 96; RESP 17; TEMP 36.3; O2SAT 95
[2023-09-17] MEDS: Acetylcysteine 5,000 MG in Dextrose 5 % 500 ML 131.25 MG IV (23:31)
[2023-09-18 01:59] LABS: Acetaminophen LAB 77 mcg/mL (<30)
[2023-09-18 03:12] VITALS: BP 123/80; PULSE 87; RESP 17; TEMP 36.3; O2SAT 95
[2023-09-18] MEDS: Acetylcysteine 10,000 MG in Dextrose 5 % 1,000 ML 65.63 MG IV (03:54)
[2023-09-18] MEDS: Famotidine 20 MG TABLET 10 MG PO ×2 (06:31→16:35)
[2023-09-18 06:42] LABS: Hematocrit 32.4 % (37.0-47.0); Hemoglobin 10.2 g/dl (12.0-16.0); Mean Corpuscular HGB Conc 31.5 g/dl (31.0-35.0); Mean Corpuscular Hemoglobin 27.9 pg (27.0-33.0); Mean Corpuscular Volume 88.5 fL (80.0-98.0); Mean Platelet Volume 9.8 fL (9.4-12.3); Platelet Count 253 X10*3/uL (160-400); Red Blood Count 3.66 X10*6/uL (4.20-5.50); Red Cell Distribution Width 13.2 % (11.0-16.0); White Blood Count 5.3 X10*3/uL (4.8-10.8)
[2023-09-18 07:05] LABS: Alanine Aminotransferase 13 U/L (0-31); Albumin Level 3.3 g/dL (3.5-5.0); Alkaline Phosphatase 91 U/L (39-117); Anion Gap 13 (12-20); Aspartate Amino Transferase 12 U/L (5-31); Bilirubin Total 0.1 mg/dL (0.0-1.0); Blood Urea Nitrogen 11 mg/dL (9-16); Calcium 7.9 mg/dL (8.4-10.2); Carbon Dioxide 21 mmol/L (22-29); Chloride 108 mmol/L (96-108); Creatinine Clr Calc Pharmacy 94.1; Estimated Glomerular Filt Rate > 60; Glucose Random 207 mg/dL (60-115); Potassium 3.2 mmol/L (3.3-5.1); Sodium 139 mmol/L (135-145); Total Protein 5.7 g/dL (6.5-8.0)
--- NOTE | 2023-09-18 07:28 | P.PNIM_ITS ---
Subjective Subjective Date of Service: 09/18/23 Interval History: f/u on intentional Tylenol overdose, SI. I am not ok Psychiatrically Physical Exam 2 Vital Signs: Vital Signs: Last Vital Signs Temp 97.4 F 09/18/23 03:12 Pulse 87 09/18/23 03:12 Resp 17 09/18/23 03:12 BP 123/80 09/18/23 03:12 Pulse Ox 95 09/18/23 03:12 O2 Del Method Room Air 09/18/23 03:12 BMI result Body Mass Index 38.8 Const: Other: General: AO X 3, no acute distress Resp: CTA bilateral CVS: S1,S2,RRR GI: +BS, NT, no distention Skin: No rash Neuro: motor grossly intact Psych: appropriate affect Objective Data Active Medications Albuterol Sulfate (Albuterol Sulfate 90 Mcg 8 Gm Inhaler) 2 puff INHALE Q4H PRN PRN Reason: Shortness Of Breath Or Wheezing Atorvastatin Calcium (Atorvastatin Calcium 10 Mg Tablet) 10 mg PO DAILY [facility] Benztropine Mesylate (Benztropine Mesylate 1 Mg Tablet) 1 mg PO BID [facility] Buspirone HCl (Buspirone Hcl 10 Mg Tablet) 10 mg PO BID [facility] Enoxaparin Sodium (Enoxaparin Sodium 40 Mg/0.4 Ml Syringe) 40 mg SUBCUT Q24H [facility] Last Admin: 09/17/23 22:26 Dose: 40 mg Documented By: JHONNY Famotidine (Famotidine 20 Mg Tablet) 10 mg PO BID@0630,1630 [facility] Last Admin: 09/18/23 06:31 Dose: 10 mg Documented By: ENEIDA Fluoxetine HCl (Fluoxetine Hcl 20 Mg Capsule) 80 mg PO DAILY [facility] Fluphenazine HCl (Fluphenazine Hcl 5 Mg Tablet) 5 mg PO BID [facility] Acetylcysteine 10,000 mg/ (Dextrose) 1,050 mls @ 65.625 mls/hr IV ONCE ONE Stop: 09/18/23 17:59 Last Admin: 09/18/23 03:54 Dose: 65.63 mls/hr Documented By: ENEIDA Lamotrigine (Lamotrigine 25 Mg Tablet) 25 mg PO DAILY [facility] Lisinopril (Lisinopril 5 Mg Tablet) 5 mg PO DAILY [facility]; Protocol Lorazepam (Lorazepam 0.5 Mg Tablet) 0.5 mg PO DAILY PRN PRN Reason: Anxiety Metformin HCl (Metformin Hcl 500 Mg Tablet) 500 mg PO BIDWM [facility] Mirtazapine (Mirtazapine 7.5 Mg Tablet) 7.5 mg PO BEDTIME [facility] Montelukast Sodium (Montelukast Sodium 10 Mg Tablet) 10 mg PO BEDTIME [facility] Omeprazole (Omeprazole 20 Mg Capsule.Dr) 20 mg PO DAILY [facility] Ondansetron HCl (Ondansetron Hcl 4 Mg/2 Ml Vial) 4 mg IVPUSH Q8H PRN PRN Reason: Nausea and Vomiting Prazosin HCl (Prazosin Hcl 1 Mg Capsule) 4 mg PO BEDTIME [facility]; Protocol Sodium Chloride (0.9 % Sodium Chloride Flush 3 Ml Syringe) 3 ml IVFLUSH QSHIFT [facility] Last Admin: 09/18/23 00:23 Dose: Not Given Documented By: ENEIDA Non-Admin Reason: Previously Administered Trazodone HCl (Trazodone Hcl 50 Mg Tablet) 150 mg PO BEDTIME [facility] Labs 09/18/23 06:08 09/18/23 06:08 Labs: Laboratory Results - last 24 hr 09/17/23 09/17/23 09/17/23 20:15 20:26 21:04 MCV 88.8 MCH 29.3 MCHC 33.0 RDW 13.4 Plt Count 278 MPV 9.6 Immature Gran % (Auto) 0.5 H Neut % (Auto) 58.1 Lymph % (Auto) 27.2 Churchill % (Auto) 9.9 Eos % (Auto) 3.8 Baso % (Auto) 0.5 Lymph # (Auto) 1.7 Churchill # (Auto) 0.6 Eos # (Auto) 0.2 Baso # (Auto) 0.0 Abs Immat Gran (auto) 0.03 Absolute Neuts (auto) 3.6 Absolute Nucleated RBC 0.000 Nucleated RBC % (auto) 0.0 PT 10.9 L INR 0.9 VBG pH 7.45 H VBG pCO2 34 VBG pO2 98 VBG HCO3 24 VBG O2 Saturation 99.0 VBG Base Excess 1.1 Anion Gap 15 Estim Creat Clear Calc 98.6 Estimated GFR > 60 Random Glucose 121 H Calcium 8.9 Magnesium 1.7 Total Bilirubin 0.1 AST 19 ALT 16 Alkaline Phosphatase 115 Total Protein 7.4 Albumin 4.1 Urine Color Yellow Urine Appearance Clear Urine pH 6.0 Ur Specific Lyons <= 1.005 Urine Protein Negative Urine Glucose (UA) Negative Urine Ketones Negative Urine Blood Negative Urine Nitrite Negative Ur Leukocyte Esterase Negative Salicylates < 5.0 L Urine Opiates Screen Not Detected Urine Fentanyl Screen Not Detected Acetaminophen 73 H* Ur Barbiturates Screen Not Detected Ur Phencyclidine Scrn Not Detected Ur Amphetamines Screen Not Detected U Benzodiazepines Scrn Not Detected Urine Cocaine Screen Not Detected U Marijuana (THC) Screen Not Detected Ethyl Alcohol < 10 09/18/23 09/18/23 01:22 06:08 MCV 88.5 MCH 27.9 MCHC 31.5 RDW 13.2 Plt Count 253 MPV 9.8 Immature Gran % (Auto) Neut % (Auto) Lymph % (Auto) Churchill % (Auto) Eos % (Auto) Baso % (Auto) Lymph # (Auto) Churchill # (Auto) Eos # (Auto) Baso # (Auto) Abs Immat Gran (auto) Absolute Neuts (auto) Absolute Nucleated RBC 0.000 Nucleated RBC % (auto) 0.0 PT INR VBG pH VBG pCO2 VBG pO2 VBG HCO3 VBG O2 Saturation VBG Base Excess Anion Gap 13 Estim Creat Clear Calc 94.1 Estimated GFR > 60 Random Glucose 207 H Calcium 7.9 L D Magnesium Total Bilirubin 0.1 AST 12 ALT 13 Alkaline Phosphatase 91 Total Protein 5.7 L Albumin 3.3 L Urine Color Urine Appearance Urine pH Ur Specific Lyons Urine Protein Urine Glucose (UA) Urine Ketones Urine Blood Urine Nitrite Ur Leukocyte Esterase Salicylates Urine Opiates Screen Urine Fentanyl Screen Acetaminophen 77 H* Ur Barbiturates Screen Ur Phencyclidine Scrn Ur Amphetamines Screen U Benzodiazepines Scrn Urine Cocaine Screen U Marijuana (THC) Screen Ethyl Alcohol Assessment and Plan (1) Suicide attempt by acetaminophen overdose: Status: Acute Plan 47-year-old obese (BMI 38.8) white female with an PMH of type 2 diabetes mellitus, hyperlipidemia, GERD and an extensive psychiatric history history of PTSD, anxiety/depression, borderline personality disorder, and multiple suicide attempts in the past here with 1. Intentional Acetaminophen overdose, SI - serum acetaminophen level was 73 mcg/mL now 50, continue trending level - received activated charcoal in ED - to complete Mucomyst protocol, started 2129 ending 1800 today - monitor on tele telemetry and closely monitor - 1:1 for suicide watch - monitor liver functions depression, PTSD, borderline personality disorder Continue home meds Care team consult once medically clear [id number] type 2 diabetes with hyperglycemia diabetic diet Humalog on sliding-scale continue metformin GERD continue PPI hyperlipidemia continue statin Chronic normocytic anemia H/H baseline, above transfusion threshold obesity weight loss advised DVT prophylaxis-Lovenox need for inpatient: Tylenol overdose needing mucomyst, frequent lab, 1:1 obs for SI prevention Quality Stroke Does the patient have a stroke diagnosis?: No VTE Prior VTE?: No VTE Risk Level:: Medical - moderate - high VTE Device Contraindication: Treatment Not Indicated VTE Drug Contraindication: N/A - Med Ordered
[2023-09-18 07:43] VITALS: BP 153/76; PULSE 76; RESP 20; TEMP 36.2; O2SAT 97
[2023-09-18 07:51] LABS: Glucose, Whole Blood 169 mg/dL (60-115)
[2023-09-18] MEDS: Insulin Lispro 100 UNIT/ML 3 ML VIAL SUBCUT ×2 (08:57→21:28)
[2023-09-18] MEDS: FLUoxetine HCl 20 MG CAPSULE 80 MG PO (08:57)
[2023-09-18] MEDS: busPIRone HCl 10 MG TABLET PO ×2 (08:58→21:29)
[2023-09-18] MEDS: lamoTRIgine 25 MG TABLET PO (08:58)
[2023-09-18] MEDS: Atorvastatin Calcium 10 MG TABLET PO (08:58)
[2023-09-18] MEDS: Omeprazole 20 MG CAPSULE.DR PO (08:58)
[2023-09-18] MEDS: Potassium Chloride ER 20 MEQ TAB.ER.PRT 40 MEQ PO (08:58)
[2023-09-18] MEDS: lisinopriL 5 MG TABLET PO (08:58)
[2023-09-18] MEDS: metFORMIN HCl 500 MG TABLET PO ×2 (08:58→16:35)
[2023-09-18] MEDS: Benztropine Mesylate 1 MG TABLET PO ×2 (08:58→21:29)
[2023-09-18] MEDS: 0.9 % Sodium Chloride Flush 3 ML SYRINGE IVFLUSH ×2 (08:58→20:27)
[2023-09-18 09:22] LABS: Acetaminophen LAB 50 mcg/mL (<30)
[2023-09-18 10:58] VITALS: BP 152/77; PULSE 87; RESP 20; TEMP 36.4; O2SAT 96
[2023-09-18] MEDS: fluPHENAZine HCl 5 MG TABLET PO ×2 (11:00→21:28)
--- NOTE | 2023-09-18 11:53 | MHC.CM.PN ---
CM met with Patient at bedside and addressed IMM with her, providing Patient with the original and a copy has been placed on the chart. [facility] [place] and she may benefit from a Care Team LOC Consult(Suicide Attempt) to assist with disposition. CM has initiated and will follow for dc planning. Patient has no HCP and her PCP is Dr. Marquez.
[2023-09-18 11:55] LABS: Glucose, Whole Blood 91 mg/dL (60-115)
[2023-09-18 15:32] VITALS: BP 145/84; PULSE 75; RESP 20; TEMP 36.6; O2SAT 97
[2023-09-18 16:17] LABS: Glucose, Whole Blood 119 mg/dL (60-115)
[2023-09-18 19:24] VITALS: BP 162/92; PULSE 75; RESP 20; TEMP 36.3; O2SAT 94
[2023-09-18] MEDS: ondansetron HCL 4 MG/2 ML VIAL IVPUSH (20:27)
[2023-09-18 20:59] LABS: Prothrombin Time 12.2 SEC (11.1-13.3)
[2023-09-18 21:04] LABS: Acetaminophen LAB 4 mcg/mL (<30)
[2023-09-18 21:06] LABS: Alanine Aminotransferase 15 U/L (0-31); Albumin Level 3.8 g/dL (3.5-5.0); Alkaline Phosphatase 81 U/L (39-117); Anion Gap 10 (12-20); Aspartate Amino Transferase 17 U/L (5-31); Bilirubin Total 0.1 mg/dL (0.0-1.0); Blood Urea Nitrogen 8 mg/dL (9-16); Calcium 8.8 mg/dL (8.4-10.2); Carbon Dioxide 24 mmol/L (22-29); Chloride 110 mmol/L (96-108); Estimated Glomerular Filt Rate > 60; Glucose Random 161 mg/dL (60-115); Potassium 4.1 mmol/L (3.3-5.1); Sodium 140 mmol/L (135-145); Total Protein 6.8 g/dL (6.5-8.0)
[2023-09-18 21:10] LABS: Glucose, Whole Blood 162 mg/dL (60-115)
[2023-09-18] MEDS: Prazosin HCL 1 MG CAPSULE 4 MG PO (21:28)
[2023-09-18] MEDS: Montelukast Sodium 10 MG TABLET PO (21:28)
[2023-09-18] MEDS: Enoxaparin Sodium 40 MG/0.4 ML SYRINGE SUBCUT (21:28)
[2023-09-18] MEDS: Mirtazapine 7.5 MG TABLET PO (21:29)
[2023-09-18] MEDS: traZODone HCL 50 MG TABLET 150 MG PO (21:29)
--- NOTE | 2023-09-18 22:04 | PC.NURSE ---
Received call from Poison Control @ 20:15 asking is Acetylcysteine had finished infusing, advised that it had just finished. They requested repeat labs for the Tylenol level, ALT and INR levels. Called Poison Control back ([phone]) @ 21:17 to advise of levels. She asked if pt was okay or seemed off, advised of 1 round of emesis but nothing further and zofran given with some positive effect. Advised I would call back if anything further came up. Poison Control called back @ 21:45 advising that per the handle machine operator, no more Acetylcysteine is needed and labs are okay.
[2023-09-19 03:20] VITALS: BP 140/77; PULSE 86; RESP 18; TEMP 37.2; O2SAT 94
[2023-09-19] MEDS: Famotidine 20 MG TABLET 10 MG PO ×2 (06:20→17:31)
[2023-09-19 07:56] VITALS: BP 122/77; PULSE 82; RESP 20; TEMP 36.6; O2SAT 97
[2023-09-19 07:56] LABS: Glucose, Whole Blood 94 mg/dL (60-115)
[2023-09-19 08:26] LABS: Alanine Aminotransferase 13 U/L (0-31); Albumin Level 3.5 g/dL (3.5-5.0); Alkaline Phosphatase 70 U/L (39-117); Anion Gap 12 (12-20); Aspartate Amino Transferase 12 U/L (5-31); Bilirubin Direct < 0.2 mg/dL (0.0-0.5); Bilirubin Total 0.2 mg/dL (0.0-1.0); Blood Urea Nitrogen 8 mg/dL (9-16); Calcium 8.6 mg/dL (8.4-10.2); Carbon Dioxide 24 mmol/L (22-29); Chloride 110 mmol/L (96-108); Creatinine Clr Calc Pharmacy 118.3; Estimated Glomerular Filt Rate > 60; Glucose Random 90 mg/dL (60-115); Potassium 3.7 mmol/L (3.3-5.1); Sodium 142 mmol/L (135-145)
[2023-09-19] MEDS: lamoTRIgine 25 MG TABLET PO (09:24)
[2023-09-19] MEDS: busPIRone HCl 10 MG TABLET PO ×2 (09:24→19:30)
[2023-09-19] MEDS: Benztropine Mesylate 1 MG TABLET PO ×2 (09:24→19:55)
[2023-09-19] MEDS: fluPHENAZine HCl 5 MG TABLET PO ×2 (09:24→19:30)
[2023-09-19] MEDS: FLUoxetine HCl 20 MG CAPSULE 80 MG PO (09:24)
[2023-09-19] MEDS: Atorvastatin Calcium 10 MG TABLET PO (09:24)
[2023-09-19] MEDS: Omeprazole 20 MG CAPSULE.DR PO (09:24)
[2023-09-19] MEDS: metFORMIN HCl 500 MG TABLET PO ×2 (09:24→17:31)
[2023-09-19] MEDS: 0.9 % Sodium Chloride Flush 3 ML SYRINGE IVFLUSH (09:24)
[2023-09-19] MEDS: lisinopriL 5 MG TABLET PO (09:24)
[2023-09-19 11:04] VITALS: BP 130/77; PULSE 86; RESP 18; TEMP 37.1; O2SAT 94
--- NOTE | 2023-09-19 11:07 | PM.DS ---
DS: Providers Provider Date of Service: 09/19/23 Date of admission: 09/17/23 21:20 Primary care physician: Maribel Marquez NP Consults: 09/17/23 21:06 Consult to Care Team Stat Comment: Reason for consultation: Intentional overdose on Tylenol, again 09/19/23 08:00 Consult to Care Team Routine Comment: Reason for consultation: OD, SI. Medically clear DS: Diagnosis Discharge Diagnosis (1) Suicide attempt by acetaminophen overdose: Status: Acute DS: Summary Hospital Course Hospital Course: [facility] Complaint: Tylenol Overdose Patient is a 47-year-old obese (BMI 38.8) white female with an PMH of type 2 diabetes mellitus, hyperlipidemia, GERD and an extensive psychiatric history history of PTSD, anxiety/depression, borderline personality disorder, and multiple suicide attempts in the past who presented to the emergency room after attempting to commit suicide by ingesting 50 extra strength Tylenol in a suicide attempt. She reported still feeling suicidal when I got to see her. She however denies any associated chest pain, abdominal pain, nausea, vomiting, diarrhea, constipation or urinary symptoms. Initial evaluation in the ED revealed mildly elevated blood pressure and heart rate Initial lab work is significant for hemoglobin of 11.0 which is around her baseline and a serum acetaminophen level of 73 mcg/mL with normal LFTs. She was started on activated charcoal and NAC. She has a sitter at bedside and will be admitted for further management Hospital corurse: Patient was admitted following tylenol overdose with initial level of 73 and was given activated charcol followed by Mucomust ad tylenol level has come back to normal, LFTs were not affected, she remains Psychiatrically unstable and should be further treated in inpatient Psych treatment. Time Attestation Discharge coordination time: Greater than 30 minutes Quality: Safe Use of Opioids Does Pt have an Active Cancer Diagnosis on the Problem List?: No Quality: Stroke Does the patient have a stroke diagnosis?: No Physical Exam Vital Signs: Vital Signs: Last Vital Signs Temp 98.7 F 09/19/23 11:04 Pulse 86 09/19/23 11:04 Resp 18 09/19/23 11:04 BP 130/77 09/19/23 11:04 Pulse Ox 94 09/19/23 11:04 O2 Del Method Room Air 09/19/23 11:04 BMI result Body Mass Index 38.8 DS: Data Data Completed and Pending Completed studies during hospitalization [Text1]: Procedures Insertion of Infusion Device into Left Internal Jugular Vein, Percutaneous Approach (02/09/22) Labs on day of discharge: Laboratory Results - last 24 hr 09/18/23 09/18/23 09/18/23 10:57 16:01 20:40 Hold Purple Top PT 12.2 INR 1.0 Sodium 140 Potassium 4.1 D Chloride 110 H Carbon Dioxide 24 Anion Gap 10 L BUN 8 L Creatinine 0.76 Estim Creat Clear Calc 109.0 Estimated GFR > 60 POC Glucose 91 119 H Random Glucose 161 H Calcium 8.8 D Total Bilirubin 0.1 Direct Bilirubin AST 17 ALT 15 Alkaline Phosphatase 81 Total Protein 6.8 Albumin 3.8 Acetaminophen 4 09/18/23 09/19/23 09/19/23 20:56 07:19 07:25 Hold Purple Top SEE NOTE PT INR Sodium 142 Potassium 3.7 Chloride 110 H Carbon Dioxide 24 Anion Gap 12 BUN 8 L Creatinine 0.70 Estim Creat Clear Calc 118.3 Estimated GFR > 60 POC Glucose 162 H 94 Random Glucose 90 Calcium 8.6 Total Bilirubin 0.2 Direct Bilirubin < 0.2 AST 12 ALT 13 Alkaline Phosphatase 70 Total Protein 6.0 L Albumin 3.5 Acetaminophen Discharge Plan Discharge Anticipated Discharge Date/Time: 09/19/23 11:01 Patient Disposition: Xfer Psychiatric Hosp Discharge Diagnosis: Overdose, SI Referrals: Maribel Marquez NP [Primary Care Provider] - 1 Week Discharge Medications: Continued trazodone 150 mg tablet 150 mg PO BEDTIME fluoxetine 40 mg capsule 80 mg PO DAILY buspirone 10 mg tablet 10 mg PO BID benztropine 1 mg tablet 1 mg PO BID lisinopril 5 mg tablet 5 mg PO DAILY prazosin 2 mg capsule 4 mg PO BEDTIME mirtazapine 7.5 mg tablet 7.5 mg PO BEDTIME fluticasone propion-salmeterol [Advair Diskus] 100-50 mcg/dose blister with device 1 ea inhalation BID lorazepam 0.5 mg tablet 0.5 mg PO DAILY PRN (Reason: Anxiety) metformin 500 mg Tablet 500 mg PO BIDWM famotidine 10 mg Tablet 10 mg PO BID@0630,1630 atorvastatin 10 mg tablet 10 mg PO DAILY lamotrigine 25 mg Tablet 25 mg PO DAILY Rx Instructions: TAKE 25 MG DAILY FROM 09/16 THROUGH 09/30 lamotrigine 25 mg Tablet 50 mg PO DAILY Rx Instructions: TAKE 50 MG DAILY STARTING 10/01 fluphenazine HCl 5 mg tablet 5 mg PO BID albuterol sulfate [Ventolin HFA] 90 mcg/actuation HFA aerosol inhaler 2 inh inhalation Q4H PRN (Reason: Shortness Of Breath Or Wheezing) pantoprazole 40 mg tablet,delayed release (DR/EC) 40 mg PO DAILY ibuprofen 400 mg tablet 800 mg PO Q6H PRN (Reason: Pain (Scale Score 4-6)) montelukast 10 mg tablet 10 mg PO BEDTIME Diet: Diabetic diet Activity on Discharge: As tolerated Stand Alone Forms: Patient Portal Discharge page Care Plan Goals: suicide prevention Health Concerns: Overdose, suicide attempt
[2023-09-19 11:39] LABS: Glucose, Whole Blood 151 mg/dL (60-115)
[2023-09-19] MEDS: Insulin Lispro 100 UNIT/ML 3 ML VIAL SUBCUT (12:51)
[2023-09-19] MEDS: LORazepam 0.5 MG TABLET PO ×2 (12:51→19:55)
--- NOTE | 2023-09-19 14:06 | HO.PM.IMPN ---
Subjective Subjective Date of Service: 09/19/23 Interval History: f/u on intentional Tylenol overdose completed mucomyst, still with SI and has sitter Physical Exam Vital Signs: Vital Signs: Last Vital Signs Temp 98.7 F 09/19/23 11:04 Pulse 86 09/19/23 11:04 Resp 18 09/19/23 11:04 BP 130/77 09/19/23 11:04 Pulse Ox 94 09/19/23 11:04 O2 Del Method Room Air 09/19/23 11:04 BMI result Body Mass Index 38.8 Const: Other: General: AO X 3, no acute distress Resp: CTA bilateral CVS: S1,S2,RRR GI: +BS, NT, no distention Skin: No rash Neuro: motor grossly intact Psych: appropriate affect , SI Objective Data Active Medications Albuterol Sulfate (Albuterol Sulfate 90 Mcg 8 Gm Inhaler) 2 puff INHALE Q4H PRN PRN Reason: Shortness Of Breath Or Wheezing Atorvastatin Calcium (Atorvastatin Calcium 10 Mg Tablet) 10 mg PO DAILY [facility] Last Admin: 09/19/23 09:24 Dose: 10 mg Documented By: HIRA Benztropine Mesylate (Benztropine Mesylate 1 Mg Tablet) 1 mg PO BID [facility] Last Admin: 09/19/23 09:24 Dose: 1 mg Documented By: HIRA Buspirone HCl (Buspirone Hcl 10 Mg Tablet) 10 mg PO BID [facility] Last Admin: 09/19/23 09:24 Dose: 10 mg Documented By: HIRA Dextrose (Dextrose 50 % 25 Gm/50 Ml Syringe) 25 gm IVPUSH Q15M PRN; Protocol PRN Reason: per Hypoglycemia Standing Ord. Enoxaparin Sodium (Enoxaparin Sodium 40 Mg/0.4 Ml Syringe) 40 mg SUBCUT Q24H [facility] Last Admin: 09/18/23 21:28 Dose: 40 mg Documented By: LEON Famotidine (Famotidine 20 Mg Tablet) 10 mg PO BID@0630,1630 [facility] Last Admin: 09/19/23 06:20 Dose: 10 mg Documented By: LEON Fluoxetine HCl (Fluoxetine Hcl 20 Mg Capsule) 80 mg PO DAILY [facility] Last Admin: 09/19/23 09:24 Dose: 80 mg Documented By: HIRA Fluphenazine HCl (Fluphenazine Hcl 5 Mg Tablet) 5 mg PO BID [facility] Last Admin: 09/19/23 09:24 Dose: 5 mg Documented By: HIRA Fluticasone/Vilanterol (Fluticasone/Vilanterol 100/25 Blst.W.Dev) 1 puff INHALE RDAILY [facility] Last Admin: 09/19/23 11:04 Dose: Not Given Documented By: LUANNE Non-Admin Reason: Med Not Available Glucose (Glucose Gel 15 Gm Gel..Gram.) 15 gm PO Q15M PRN; Protocol PRN Reason: per Hypoglycemia Standing Ord. Insulin Human Lispro (Insulin Lispro 100 Unit/Ml 3 Ml Vial) 0 unit SUBCUT QIDACHS [facility]; Protocol Last Admin: 09/19/23 12:51 Dose: 2 unit Documented By: HIRA Lamotrigine (Lamotrigine 25 Mg Tablet) 25 mg PO DAILY [facility] Last Admin: 09/19/23 09:24 Dose: 25 mg Documented By: HIRA Lisinopril (Lisinopril 5 Mg Tablet) 5 mg PO DAILY [facility]; Protocol Last Admin: 09/19/23 09:24 Dose: 5 mg Documented By: HIRA Lorazepam (Lorazepam 0.5 Mg Tablet) 0.5 mg PO DAILY PRN PRN Reason: Anxiety Last Admin: 09/19/23 12:51 Dose: 0.5 mg Documented By: HIRA Metformin HCl (Metformin Hcl 500 Mg Tablet) 500 mg PO BIDWM [facility] Last Admin: 09/19/23 09:24 Dose: 500 mg Documented By: HIRA Mirtazapine (Mirtazapine 7.5 Mg Tablet) 7.5 mg PO BEDTIME [facility] Last Admin: 09/18/23 21:29 Dose: 7.5 mg Documented By: LEON Montelukast Sodium (Montelukast Sodium 10 Mg Tablet) 10 mg PO BEDTIME [facility] Last Admin: 09/18/23 21:28 Dose: 10 mg Documented By: LEON Omeprazole (Omeprazole 20 Mg Capsule.Dr) 20 mg PO DAILY [facility] Last Admin: 09/19/23 09:24 Dose: 20 mg Documented By: HIRA Ondansetron HCl (Ondansetron Hcl 4 Mg/2 Ml Vial) 4 mg IVPUSH Q8H PRN PRN Reason: Nausea and Vomiting Last Admin: 09/18/23 20:27 Dose: 4 mg Documented By: LEON Prazosin HCl (Prazosin Hcl 1 Mg Capsule) 4 mg PO BEDTIME [facility]; Protocol Last Admin: 09/18/23 21:28 Dose: 4 mg Documented By: LEON Sodium Chloride (0.9 % Sodium Chloride Flush 3 Ml Syringe) 3 ml IVFLUSH QSHIFT [facility] Last Admin: 09/19/23 09:24 Dose: 3 ml Documented By: HIRA Trazodone HCl (Trazodone Hcl 50 Mg Tablet) 150 mg PO BEDTIME [facility] Last Admin: 09/18/23 21:29 Dose: 150 mg Documented By: LEON Labs 09/18/23 06:08 09/19/23 07:19 Labs: Laboratory Results - last 24 hr 09/18/23 09/18/23 09/18/23 16:01 20:40 20:56 Hold Purple Top PT 12.2 INR 1.0 Anion Gap 10 L Estim Creat Clear Calc 109.0 Estimated GFR > 60 POC Glucose 119 H 162 H Random Glucose 161 H Calcium 8.8 D Total Bilirubin 0.1 Direct Bilirubin AST 17 ALT 15 Alkaline Phosphatase 81 Total Protein 6.8 Albumin 3.8 Acetaminophen 4 09/19/23 09/19/23 09/19/23 07:19 07:25 11:03 Hold Purple Top SEE NOTE PT INR Anion Gap 12 Estim Creat Clear Calc 118.3 Estimated GFR > 60 POC Glucose 94 151 H Random Glucose 90 Calcium 8.6 Total Bilirubin 0.2 Direct Bilirubin < 0.2 AST 12 ALT 13 Alkaline Phosphatase 70 Total Protein 6.0 L Albumin 3.5 Acetaminophen Assessment and Plan (1) Suicide attempt by acetaminophen overdose: Status: Acute Plan 47-year-old obese (BMI 38.8) white female with an PMH of type 2 diabetes mellitus, hyperlipidemia, GERD and an extensive psychiatric history history of PTSD, anxiety/depression, borderline personality disorder, and multiple suicide attempts in the past here with 1. Intentional Acetaminophen overdose, SI - serum acetaminophen level was 73 mcg/mL now normal - received activated charcoal in ED - completed Mucomyst protocol, LFTs normal depression, PTSD, borderline personality disorder Continue home meds Care team consult once medically clear [id number] type 2 diabetes with hyperglycemia diabetic diet Humalog on sliding-scale continue metformin GERD continue PPI hyperlipidemia continue statin Chronic normocytic anemia H/H baseline, above transfusion threshold obesity weight loss advised DVT prophylaxis-Lovenox need for inpatient:AWaiting inpatient Psych palcement Quality Stroke Does the patient have a stroke diagnosis?: No VTE Prior VTE?: No VTE Risk Level:: Medical - moderate - high VTE Device Contraindication: Treatment Not Indicated VTE Drug Contraindication: N/A - Med Ordered
[2023-09-19 15:31] VITALS: BP 137/81; PULSE 94; RESP 17; TEMP 36.8; O2SAT 97
[2023-09-19 16:23] LABS: Glucose, Whole Blood 122 mg/dL (60-115)
[2023-09-19 19:02] VITALS: BP 130/81; PULSE 86; RESP 17; TEMP 36.7; O2SAT 97
[2023-09-19] MEDS: Mirtazapine 7.5 MG TABLET PO (19:30)
[2023-09-19] MEDS: Albuterol Sulfate 90 MCG 8 GM INHALER 2 PUFF INHALE (19:34)
[2023-09-19] MEDS: Fluticasone/Vilanterol 100/25 BLST.W.DEV 1 PUFF INHALE (19:35)
[2023-09-19] MEDS: Enoxaparin Sodium 40 MG/0.4 ML SYRINGE SUBCUT (19:55)
[2023-09-19] MEDS: Prazosin HCL 1 MG CAPSULE 4 MG PO (19:55)
[2023-09-19] MEDS: Montelukast Sodium 10 MG TABLET PO (19:55)
[2023-09-19 20:33] LABS: Glucose, Whole Blood 157 mg/dL (60-115)
[2023-09-19 22:17] LABS: COVID-19 Test Negative (Negative); IDNOW Serial# 08D9AD1C
[2023-09-19 22:32] LABS: MANUAL DIFF FLAG NO
[2023-09-19 22:34] LABS: Basophils Percent Auto 0.3 % (0-2); Eosinophils Absolute Auto 0.2 X10*3/uL (0.0-0.4); Eosinophils Percent Auto 2.9 % (0-4); Hemoglobin 9.9 g/dl (12.0-16.0); Imm Gran Abs Auto 0.02 X10*3/uL (0.00-0.03); Imm Gran Pct Auto 0.3 % (0.0-0.4); Lymphocytes Absolute Auto 1.9 X10*3/uL (1.2-4.9); Lymphocytes Percent Auto 30.1 % (20-40); Mean Corpuscular HGB Conc 31.9 g/dl (31.0-35.0); Mean Corpuscular Volume 87.6 fL (80.0-98.0); Mean Platelet Volume 9.2 fL (9.4-12.3); Monocytes Absolute Auto 0.6 X10*3/uL (0.1-1.2); Neutrophils Absolute Auto 3.6 x10*3/uL (2.0-8.3); Neutrophils Percent Auto 57.4 % (45-73); Platelet Count 261 X10*3/uL (160-400); Red Blood Count 3.54 X10*6/uL (4.20-5.50); Red Cell Distribution Width 13.2 % (11.0-16.0); White Blood Count 6.3 X10*3/uL (4.8-10.8)
[2023-09-19 22:42] LABS: D Dimer High Sensitivity 157 NG/ML
[2023-09-19 22:53] LABS: C Reactive Protein 0.15 mg/dL (< or = 0.50); Glucose Random 149 mg/dL (60-115); Lactate Dehydrogenase 205 U/L (122-220); Magnesium 1.7 mg/dL (1.6-2.6); Phosphorus 2.5 mg/dL (2.7-4.5)
[2023-09-19 23:09] LABS: Procalcitonin < 0.02 ng/mL
== END 2023-09-19 22:36 | DRG 918 ==
LOC: HO.ED 21:09 → HO.EDOVER 21:34 → HO.IMC 22:09
PROVIDERS: Admitting Provider Internal Medicine; Emergency Provider Student in an Organized Health Care Education/Training Program; PCP Nurse Practitioner Family; Visit Provider Internal Medicine
DX: T39.1X2A Poisoning by 4-Aminophenol derivatives, intentional self-harm, initial encounter (principal); F17.210 Nicotine dependence, cigarettes, uncomplicated; D64.9 Anemia, unspecified; F43.10 Post-traumatic stress disorder, unspecified; E11.65 Type 2 diabetes mellitus with hyperglycemia; E66.9 Obesity, unspecified; Z68.38 Body mass index [BMI] 38.0-38.9, adult; F60.3 Borderline personality disorder; E78.5 Hyperlipidemia, unspecified; Z71.6 Tobacco abuse counseling; Z20.822 Contact with and (suspected) exposure to COVID-19; Z91.51 Personal history of suicidal behavior; Z79.51 Long term (current) use of inhaled steroids; Z79.84 Long term (current) use of oral hypoglycemic drugs; Z79.899 Other long term (current) drug therapy
CPT/HCPCS: 36415; 80048; 80053; 80061; 80076; 80143; 80179; 80307; 81003; 82550; 82803; 82947; 83615; 83735; 84100; 84145; 84484; 84702; 85025; 85027; 85379; 85610; 86140; 87635; 93005; 99283; 99285; J0132; J1650; J2405; S9485

== ENCOUNTER → 2023-09-17 19:54 | Outpatient (BNV) | payer MEDICARE, MEDICAID, SELFPAY | PROVIDERS: Admitting Provider Internal Medicine; Emergency Provider Student in an Organized Health Care Education/Training Program; PCP Nurse Practitioner Family; Visit Provider Internal Medicine | DX: R00.0 Tachycardia, unspecified (principal) | CPT/HCPCS: 93010 ==

== ENCOUNTER → 2023-09-17 21:20 | Outpatient (BNV) | payer MEDICARE, MEDICAID, SELFPAY | PROVIDERS: Admitting Provider Internal Medicine; Emergency Provider Student in an Organized Health Care Education/Training Program; PCP Nurse Practitioner Family; Visit Provider Internal Medicine | DX: T39.1X2A Poisoning by 4-Aminophenol derivatives, intentional self-harm, initial encounter (principal) | CPT/HCPCS: 99223; 99233; 99239 ==

== ENCOUNTER 2023-09-19 22:38 | Inpatient (IN) | payer MEDICARE, MEDICAID, SELFPAY ==
--- OUTSIDE RECORDS SUMMARY | 2023-09-19 22:41 | XMS_ITS | Continuity of Care Document ---
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 Attending Physician: Maribel Marquez NP Allergies, [...] each, 5 Refills, Maintenance, 05/22/23 11:32:00 EDT, [facility], Partial fill upon patient request if the prescription is for a schedule II opioid drug., 2 puffs Inhal... Start Date: 05/22/23 Stop Date: 05/22/24 Status: Ordered albuterol CFC free 90 mcg/inh inhalation aerosol 90 mcg, 1, puffs, Inhalation, Every 4 hours, PRN, # 6.7 Gm, Refills 0, Tot. Refills 0, Maintenance,11/16/22 10:33:00 EST, Inhaler, Route to Pharmacy Electronically, [id number]_[id number], [facility], 163, cm, 11/16/22 9:43:00 EST, Height, 97.3,... Start Date: 11/16/22 Status: Ordered atorvastatin 10 mg oral tablet 1 tablet = 10 mg, By Mouth, Daily at bedtime, # 30 tablet, 0 Refills, Maintenance, 11/16/22 10:33:00 EST, Tablet, [facility], Partial fill upon patient request if [...] 10:33:00 EST, Route to Pharmacy Electronically, [facility], Partial fill upon patientrequest if the [...] Refills, Maintenance, 11/16/22 10:33:00 EST, Tablet, [facility], Partial fill upon patient request if [...] 10:34:00 EST, Route to Pharmacy Electronically, [facility], Partial fill upon patient request if the prescription is for a schedule II opioid d... Start Date: 11/16/22 Stop Date: 08/13/23 Status: Ordered FLUoxetine 20 mg oral capsule 80 mg, 4, capsule, By Mouth, Daily in AM, # 120 capsule, Refills 0, Tot. Refills 0, Maintenance, 11/16/22 10:34:00 EST, Route to Pharmacy Electronically, [facility], Partial fill upon patient request if [...] 02/12/23 10:51:00 EDT, Route to Pharmacy Electronically, [facility], Partial fill upon patient requestif [...] tablet, 1 Refills, Maintenance,02/22/23 10:08:00 EDT, [facility], 146, cm, 02/05/23 20:22:00 EDT, Height, [...] Refills, Maintenance, 11/16/22 10:34:00 EST, Tablet, [facility], Partial fill upon patient request if [...] Refills, Maintenance, 11/16/22 10:34:00 EST, Tablet, [facility], Partial fill upon patient request if [...] 10:34:00 EST, Route to Pharmacy Electronically, [facility], Partial fill upon patient request if [...] 11:34:00 EDT, 05/22/23 11:32:00 EDT, ER Tablet, [facility], Partial fill upon patient request if the prescription is for a radha... Start Date: 05/22/23 Stop Date: 05/29/24 Status: Ordered nystatin topical 520823 u/gm cream 1 application, Topically, 2 times a day, # 15 Gm, 0 Refills, Maintenance, 01/05/23 15:04:00 EDT, Cream, [facility], Partial fill upon patient request if the prescription is for a schedule II opioid drug., 1 application Topically 2 times a da... Start Date: 01/05/23 Status: Ordered nystatin topical 576552 u/gm cream 0 Refills, Maintenance, 01/06/23 18:05:00 [...] 10:34:00 EST, Route to Pharmacy Electronically, [facility], Partial fill upon patient request if [...] Maintenance,11/16/22 10:34:00 EST, Route to Pharmacy Electronically, [facility], Partial fill upon patient request if [...] Team Personnel Name: Rudi Ruiz RN Position: [facility] ED RN W/OE and Tasks Member Role: Primary Care Nurse Name: Alicja Riggs RN Position: [facility] RN Member Role: Primary Care Nurse Name: Ros Fu RN Position: [facility] RN Member Role: Primary Care Nurse Name: Hilda Mccabe RN Position: [facility] RN Member Role: Primary Care Nurse Name: Rosana Kearney RN Position: [facility] RN Member Role: Primary Care Nurse Name: Wil Flood RN Position: [facility] RN Member Role: Primary Care Nurse Name: Gagandeep Sheldon RN Position: [facility] RN Member Role: Primary Care Nurse Name: Alba Daily RN Position: [facility] RN Member Role: Primary Care Nurse Name: Maribel Marquez NP Position: [facility] PCO Associate Professional Member Role: PCP Address: Address: [address] [place] [address]- [place] Name: James RNJose Position: [facility] RN Member Role: Primary Care Nurse Name: Brittany Butts RN Position: [facility] AMB Nurse Member Role: Primary Care Nurse Name: Pauline Mcadams RN Position: [facility] RN Member Role: Primary Care Nurse Name: Mary Sánchez RN Position: [facility] RN Member Role: Primary Care Nurse Name: Shama Rosado RN Position: [facility] RN Member Role: Primary Care Nurse Name: Jackie Snyder RN Position: [facility] RN Member Role: Primary Care Nurse Name: Jay Burks NP Position: Reference Physician Member Role: Primary Care Nurse Address: Address: [address] [place], [place] [id number] Clinical & [place] [address]- [place] Name: Parvez Kaba MD Position: [facility] Renal MD Member Role: Lifetime Consulting Physician Address: Address: [address] [place] [address] [facility] [place] [address]- [place] Name: Mirna Paul RN Position: [facility] OB RN Member Role: Primary Care Nurse Name: Latonya Rahman RN Position: [facility] Onco RN Member Role: Primary Care Nurse Name: Viki Gonzalez RN Position: [facility] RN Member Role: Primary Care Nurse Name: Claudia Presley RN Position: [facility] RN Member Role: Primary Care Nurse Name: Iris Villa RN Position: [facility] Hospital Hyperbaric Technician Member Role: Primary Care Nurse Care Team Related Persons Name: JO-ANN ROMANSAND TESTERINDRA Address: [address] [place] [address] Name: MAINSPRING WINDER [employer] OILERGREGG Address: [address] [place] [address] Name: CARLOS PAZ Address: home [address] [place] [address]
--- OUTSIDE RECORDS SUMMARY | 2023-09-19 22:42 | XMS_ITS | Continuity of Care Document ---
Author Name Unknown Organization [facility] Adult Address [address] [place] [address]- Care Team Providers Care Biopsychologist Name Role Phone Alma BARAHONA, Maribel Primary Care Physician Encounter [facility] Date(s): 07/19/23 - 08/19/23 [facility] Adult [address] [place], [place] [address] Attending Physician: Maribel Marquez NP Allergies, Adverse Reactions, Alerts Substance Reaction Severity Status codeine Active lithium 1 Active penicillin Active predniSONE Active sulfa drugs Active Macrobid Active Zithromax Active Seafood Active Geodon Active 1pt reports 01/17/13 started taking lithium about a week ago. Immunizations Given and Recorded Vaccine Date Status Refusal Reason influenza virus vaccine, inactivated 1 08/08/23 Gi benton influenza virus vaccine, inactivated 11/14/22 Give n [...] 07/06/13 Russel rded influenza virus vaccine, inactivated 2 09/27/10 Gi benton influenza virus vaccine, inactivated [...] ded Measles/Mumps/Rubella Virus Vaccine 03/15/79 Recor ded 1Result Comment: [facility] [id number] 2Early/Late Reason: Nursing Judgment Medications Albuterol (Eqv-Ventolin HFA) 90 mcg/inh inhalation aerosol 2 puffs, Inhalation, Every 6 hours, PRN Wheezing/Shortness of Breath, # 1 each, 5 Refills, Maintenance, 05/22/23 11:32:00 EDT, [facility], Partial fill upon patient request if the prescription is for a schedule II opioid drug., 2 puffs Inhal... Start Date: 05/22/23 Stop Date: 05/22/24 Status: Ordered albuterol CFC free 90 mcg/inh inhalation aerosol 90 mcg, 1, puffs, Inhalation, Every 4 hours, PRN, # 6.7 Gm, Refills 0, Tot. Refills 0, Maintenance,11/16/22 10:33:00 EST, Inhaler, Route to Pharmacy Electronically, NCPDP_[id number], [facility], 163, cm, 11/16/22 9:43:00 EST, Height, 97.3,... Start Date: 11/16/22 Status: Ordered atorvastatin 10 mg oral tablet 1 tablet = 10 mg, By Mouth, Daily at bedtime, # 30 tablet, 0 Refills, Maintenance, 11/16/22 10:33:00 EST, Tablet, [facility], Partial fill upon patient request [...] Refills, Maintenance, 11/16/22 10:33:00 EST, Tablet, [facility], Partial fill upon patient request if the prescriptionis for a schedule II opioid drug., 163, cm, ... Start Date: 11/16/22 Status: Ordered chlorproMAZINE 50 mg oral tablet 0 Refills, Maintenance, 01/06/23 18:05:00 EDT, Partial fill upon patient request if the prescription is for a schedule II opioid drug. Start Date: 01/06/23 Status: Ordered famotidine 10 mg oral tablet 1 tablet = 10 mg, By Mouth, 2 times a day, # 28 tablet, 0 Refills, Maintenance, 08/16/23 23:25:00 EDT, Tablet, [facility], Partial fill upon patient request if the prescription is for a schedule II opioid drug., 163, cm, 08/08/23 14:52:00 ED... Start Date: 08/16/23 Status: Ordered ferrous sulfate 325 mg oral [...] 10:34:00 EST, Route to Pharmacy Electronically, [facility], Partial fill upon patient request [...] 10:34:00 EST, Route to Pharmacy Electronically, [facility], Partial fill upon patientrequest if the prescription is for a schedule II op... Start Date: 11/16/22 Status: Ordered fluPHENAZine 5 mg oral tablet Refills 0, Maintenance, 01/06/23 18:05:00 EDT, Partial fill upon patient request if the prescription is for a schedule II opioid drug. Start Date: 01/06/23 Status: Ordered ibuprofen 400 mg oral tablet 800 mg, 2, tablet, By Mouth, Every 6 hours, PRN, # 120 tablet, Refills 0, Tot. Refills 0, Maintenance, Pain , Severe, 08/16/23 23:29:00 EDT, Route to Pharmacy Electronically, [facility], Partial fill upon patient request if the prescription... Start Date: 08/16/23 Status: Ordered lactulose 10 g/15 mL oral [...] 10:51:00 EDT, Route to Pharmacy Electronically, [facility], Partial fill upon patient requestif the [...] 60 tablet, 1 Refills, Maintenance,02/22/23 10:08:00 EDT, [facility], 146, cm, 02/05/23 20:22:00 EDT, Height, [...] Refills, Maintenance, 11/16/22 10:34:00 EST, Tablet, [facility], Partial fill upon patient request [...] Refills, Maintenance, 11/16/22 10:34:00 EST, Tablet, [facility], Partial fill upon patient request [...] 10:34:00 EST, Route to Pharmacy Electronically, [facility], Partial fill upon patient request [...] 11:34:00 EDT, 05/22/23 11:32:00 EDT, ER Tablet, [facility], Partial fill upon patient request if the prescription is for a radha... Start Date: 05/22/23 Stop Date: 05/29/24 Status: Ordered nystatin topical 944748 u/gm cream 1 application, Topically, 2 times a day, # 15 Gm, 0 Refills, Maintenance, 01/05/23 15:04:00 EDT, Cream, [facility], Partial fill upon patient request if the prescription is for a schedule II opioid drug., 1 application Topically 2 times a da... Start Date: 01/05/23 Status: Ordered nystatin topical 279241 u/gm cream 0 Refills, Maintenance, 01/06/23 18:05:00 [...] 10:34:00 EST, Route to Pharmacy Electronically, [facility], Partial fill upon patient request [...] Maintenance,11/16/22 10:34:00 EST, Route to Pharmacy Electronically, [facility], Partial fill upon patient request [...] episode Confirmed Active Fatty liver Confirmed Active Suicide attempt Confirmed Active Tobacco dependence Confirmed Active Type [...] Team Personnel Name: Rudi Ruiz RN Position: [facility] ED RN W/OE and Tasks Member Role: Primary Care Nurse Name: Alicja Riggs RN Position: [facility] RN Member Role: Primary Care Nurse Name: Ros Fu RN Position: [facility] RN Member Role: Primary Care Nurse Name: Hilda Mccabe RN Position: [facility] RN Member Role: Primary Care Nurse Name: Rosana Kearney RN Position: [facility] SN RN Member Role: Primary Care Nurse Name: Wil Flood RN Position: [facility] RN Member Role: Primary Care Nurse Name: Gagandeep Sheldon RN Position: [facility] RN Member Role: Primary Care Nurse Name: Alba Daily RN Position: [facility] RN Member Role: Primary Care Nurse Name: Maribel Marquez NP Position: [facility] PCO Associate Professional Member Role: PCP Address: Address: [address] [place] [address]- Name: Jose Ramirez RN Position: [facility] RN Member Role: Primary Care Nurse Name: Brittany Butts RN Position: [facility] AMB Nurse Member Role: Primary Care Nurse Name: Pauline Mcadams RN Position: [facility] RN Member Role: Primary Care Nurse Name: Mary Sánchez RN Position: [facility] RN Member Role: Primary Care Nurse Name: Shama Rosado RN Position: [facility] RN Member Role: Primary Care Nurse Name: Jakcie Snyder RN Position: [facility] RN Member Role: Primary Care Nurse Name: Jay Burks NP Position: Reference Physician Member Role: Primary Care Nurse Address: Address: [address] [place], [place] [phone] Clinical & [place] [address]- [place] Name: Parvez Kaba MD Position: [facility] Renal MD Member Role: Lifetime Consulting Physician Address: Address: [address] [place] [address] [facility] [place] [address]- [place] Name: Mirna Paul RN Position: [facility] OB RN Member Role: Primary Care Nurse Name: Latonya Rahman RN Position: [facility] Onco RN Member Role: Primary Care Nurse Name: Viki Gonzalez RN Position: [facility] RN Member Role: Primary Care Nurse Name: Claudia Presley RN Position: [facility] RN Member Role: Primary Care Nurse Name: Iris Villa RN Position: [facility] Hospital Battery Hand Member Role: Primary Care Nurse Care Team Related Persons Name: JO-ANN ROMANSEAT COVERS TRIMMERINDRA Address: [address] [place] [address] Name: SORTING COWS WORKERGREGG Address: home [address] [place] [address] Name: CARLOS PAZ Address: [address] [place] [address]
--- OUTSIDE RECORDS SUMMARY | 2023-09-19 22:42 | XMS_ITS | Continuity of Care Document ---
Author Name Unknown Organization [facility] Adult Address [address] [place] [address]- Care Team Providers Care Health Information Management Director Name Role Phone Maribel Marquez NP Primary Care Physician [phone] Encounter [facility] Date(s): 08/10/23 - 09/09/23 [facility] Adult [address] [place] [address]- Allergies, Adverse Reactions, Alerts Substance Reaction Severity [...] Virus Vaccine 03/15/79 Recor ded 1Result Comment: [facility] [id number] 2Early/Late Reason: Nursing Judgment Medications Advair Diskus 100 mcg-50 mcg inhalation powder 1, inhalation, Inhalation, 2 times a day, rinse mouth and throat after use, # 3 each, Refills 0, Tot. Refills 0, Maintenance, 08/29/23 13:08:00 EST, Powder, Route to Pharmacy Electronically, NCPDP_[id number], [facility], 163, cm, 08/29/23 12... Start Date: 08/29/23 Stop Date: 11/27/23 Status: Ordered Albuterol (Eqv-Ventolin HFA) 90 mcg/inh inhalation aerosol 2 puffs, Inhalation, Every 6 hours, PRN Wheezing/Shortness of Breath, # 1 each, 5 Refills, Maintenance, 05/22/23 11:32:00 EDT, [facility], Partial fill upon patient request if the prescription is for a schedule II opioid drug., 2 puffs Inhal... Start Date: 05/22/23 Stop Date: 05/22/24 Status: Ordered albuterol CFC free 90 mcg/inh inhalation aerosol 90 mcg, 1, puffs, Inhalation, Every 4 hours, PRN, # 6.7 Gm, Refills 0, Tot. Refills 0, Maintenance,11/16/22 10:33:00 EST, Inhaler, Route to Pharmacy Electronically, MSPDP_[id number], [facility], 163, cm, 11/16/22 9:43:00 EST, Height, [...] Refills, Maintenance, 08/16/23 23:25:00 EDT, Tablet, [facility], Partial fill [...] 23:29:00 EDT, [facility] to Pharmacy Electronically, [facility] [...] 60 tablet, 1 Refills, Maintenance,02/22/23 10:08:00 EDT, [facility], 146, cm, 02/05/23 20:22:00 EDT, Height, [...] 0 Refills, Maintenance, 11/16/22 10:34:00 EST, Tablet, [facility], Partial fill upon patient request if [...] 0 Refills, Maintenance, 11/16/22 10:34:00 EST, Tablet, [facility], Partial fill upon patient request if [...] 11/16/22 10:34:00 EST, Route to Pharmacy Electronically, [facility], Partial fill upon patient request if [...] 11:34:00 EDT, 05/22/23 11:32:00 EDT, ER Tablet, [facility], Partial fill upon patient request if the prescription is for a radha... Start Date: 05/22/23 Stop Date: 05/29/24 Status: Ordered nicotine 2 mg oral transmucosal lozenge 1 lozenge = 2 mg, By Mouth, Every 2 hours, PRN as needed for smoking cessation, for 6 week(s), # 504 lozenge, 0 Refills, Acute 10/10/23 13:10:00 EST, 08/29/23 13:10:00 EST, [facility], Partial fill upon patient request if the prescription is... Start Date: 08/29/23 Stop Date: 10/10/23 Status: Ordered nystatin topical 811999 u/gm cream 1 application, Topically, 2 times a day, # 15 Gm, 0 Refills, Maintenance, 01/05/23 15:04:00 EDT, Cream, [facility], Partial fill upon patient request if the prescription is for a schedule II opioid drug., 1 application Topically 2 times a da... Start Date: 01/05/23 Status: Ordered nystatin topical 598793 u/gm cream 0 Refills, Maintenance, 01/06/23 18:05:00 [...] 11/16/22 10:34:00 EST, Route to Pharmacy Electronically, [facility], Partial fill upon patient request if [...] Maintenance,11/16/22 10:34:00 EST, Route to Pharmacy Electronically, [facility], Partial fill upon patient request if [...] Care team information Care Team Personnel Name: Ruid Ruiz RN Position: [facility] ED [...] Rosana Kearney RN Position: [facility] SN RN Member Role: Primary Care Nurse Name: Wil Flood RN Position: [facility] RN Member Role: Primary Care Nurse Name: Gagandeep Sheldon RN Position: [facility] RN Member Role: Primary Care Nurse Name: Alba Daily RN Position: [facility] RN Member Role: Primary Care Nurse Name: Maribel Marquez NP Position: [facility] PCO Associate Professional Member Role: PCP Address: Address: [address] [place] [address]- Name: Jose Ramirez RN [facility]: [facility] Member Role: Primary Care Nurse Address: Address: [address] [place], [place] [phone] Clinical & [place] [address]- Name: Parvez Kaba MD Position: [facility] Renal MD Member Role: Lifetime Consulting Physician Address: Address: [address] [place] [address] [facility] [place] [address]- Name: Mirna Paul RN [facility] Villa RN Position: [facility] Hospital Urgent Care Technician Member Role: Primary Care Nurse Care Team Related Persons Name: LISBETH- BIBLE READERINDRA Address: [address] [place] [address] Name: BUTTER WRAPPERGREGG Address: [address] [place] [address] Name: CARLOS PAZ Address: [address] [place] [address]
--- OUTSIDE RECORDS SUMMARY | 2023-09-19 22:43 | XMS_ITS | Continuity of Care Document ---
Author Name Unknown Organization [facility] Side Adult Address [address] [place] [address]- Care Team Providers Care Certified Dietary Manager Name Role Phone Maribel Marquez NP Primary Care Physician [facility]): 08[facility]09[facility]23 - 09/08/23 [facility] Adult [address] [place] [address]- Allergies, Adverse Reactions, Alerts Substance Reaction Severity [...] Russel rded influenza virus vaccine, inactivated 09/09/15 Russle rded influenza virus vaccine, inactivated 07/07/13 Give [...] Virus Vaccine 03/15/79 Recor ded 1Result Comment: [facility] [id number] 2Early/Late Reason: Nursing Judgment Medications Advair Diskus 100 mcg-50 mcg inhalation powder 1, inhalation, Inhalation, 2 times a day, rinse mouth and throat after use, # 3 each, Refills 0, Tot. Refills 0, Maintenance, 08/29/23 13:08:00 EST, Powder, Route to Pharmacy Electronically, [id number]_[id number], [facility], 163, cm, 08/29/23 12... Start Date: 08/29/23 Stop Date: 11/27/23 Status: Ordered Albuterol (Eqv-Ventolin HFA) 90 mcg/inh inhalation aerosol 2 puffs, Inhalation, Every 6 hours, PRN Wheezing/Shortness of Breath, # 1 each, 5 Refills, Maintenance, 05/22/23 11:32:00 EDT, [facility], Partial fill upon patient request if the prescription is for a schedule II opioid drug., 2 puffs Inhal... Start Date: 05/22/23 Stop Date: 05/22/24 Status: Ordered albuterol CFC free 90 mcg/inh inhalation aerosol 90 mcg, 1, puffs, Inhalation, Every 4 hours, PRN, # 6.7 Gm, Refills 0, Tot. Refills 0, Maintenance,11/16/22 10:33:00 EST, Inhaler, Route to Pharmacy Electronically, [id number], [facility], 163, cm, 11/16/22 9:43:00 EST, Height, [...] 0 Refills, Maintenance, 08/16/23 23:25:00 EDT, Tablet, [facility], Partial fill upon [...] 08/16/23 23:29:00 EDT, [facility] Electronically[facility] [...] 02/12/23 10:51:00 EDT, [facility] tablet, 1 Refills, Maintenance,02/22/23 10:08:00 EDT, [facility], 146, cm, 02/05/23 20:22:00 EDT, Height, [...] Refills, Maintenance, 11/16/22 10:34:00 EST, Tablet, [facility], Partial fill upon patient request if [...] Refills, Maintenance, 11/16/22 10:34:00 EST, Tablet, [facility], Partial fill upon patient request if [...] 10:34:00 EST, Route to Pharmacy Electronically, [facility], Partial fill upon patient request if [...] EDT, 05/22/23 11:32:00 EDT, ER Tablet, [facility], Partial fill upon patient request if the prescription is for a radha... Start Date: 05/22/23 Stop Date: 05/29/24 Status: Ordered nicotine 2 mg oral transmucosal lozenge 1 lozenge = 2 mg, By Mouth, Every 2 hours, PRN as needed for smoking cessation, for 6 week(s), # 504 lozenge, 0 Refills, Acute 10/10/23 13:10:00 EST, 08/29/23 13:10:00 EST, [facility], Partial fill upon patient request if the prescription is... Start Date: 08/29/23 Stop Date: 10/10/23 Status: Ordered nystatin topical 380827 u/gm cream 1 application, Topically, 2 times a day, # 15 Gm, 0 Refills, Maintenance, 01/05/23 15:04:00 EDT, Cream, [facility], Partial fill upon patient request if the prescription is for a schedule II opioid drug., 1 application Topically 2 times a da... Start Date: 01/05/23 Status: Ordered nystatin topical 310588 u/gm cream 0 Refills, Maintenance, 01/06/23 18:05:00 [...] 10:34:00 EST, Route to Pharmacy Electronically, [facility], Partial fill upon patient request if [...] 10:34:00 EST, Route to Pharmacy Electronically, [facility], Partial fill upon patient request if [...] Team Personnel Name: Rudi Ruiz RN Position: [facility] ED RN W/OE and Tasks Member Role: Primary Care Nurse Name: Alicja Riggs RN Position: [facility] RN Member Role: Primary Care Nurse Name: Rso Fu RN Position: [facility] RN Member Role: Primary Care Nurse Name: Hilda Mccabe RN Position: [facility] RN Member Role: Primary Care Nurse Name: Rosana Kearney RN Position: [facility] SN RN Member Role: Primary Care Nurse Name: Wil Flood RN Position: [facility] RN Member Role: Primary Care Nurse Name: Gagandeep Sheldon RN Position: [facility] RN Member Role: Primary Care Nurse Name: Alba Daily RN Position: [facility] RN Member Role: Primary Care Nurse Name: Maribel Marquez NP Position: [facility] PCO Associate Professional Member Role: PCP Address: Address: [address] [place] [address]- Name: Jose Ramirez RN Position: [facility] RN Member Role: Primary Care Nurse Name: Brittany Butts RN Position: [facility] AMB Nurse Member Role: Primary Care Nurse Name: Pauline Mcadams RN Position: [facility] RN Member Role: Primary Care Nurse Name: Mary Sánchez RN Position: [facility] RN Member Role: Primary Care Nurse Name: Shama Rosado RN Position: [facility] RN Member Role: Primary Care Nurse Name: Jackie Snyder RN Position: [facility] RN Member Role: Primary Care Nurse Name: Jay Burks NP Position: Reference Physician Member Role: Primary Care Nurse Address: Address: [address] [place], [place] [id number] Clinical & [place] [address]- Name: Parvez Kaba MD Position: [facility] Renal MD Member Role: Lifetime Consulting Physician Address: Address: [address] [place] [address] [facility] [place] [address]- Name: Mirna Paul RN Position: [facility] OB RN Member Role: Primary Care Nurse Name: Latonya Rahman RN Position: [facility] Onco RN Member Role: Primary Care Nurse Name: Viki Gonzalez RN Position: [facility] RN Member Role: Primary Care Nurse Name: Claudia Presley RN Position: [facility] RN Member Role: Primary Care Nurse Name: Iris Villa RN Position: [facility] Hospital Machining Department Supervisor Member Role: Primary Care Nurse Care Team Related Persons Name: LISBETH- BOX SPRING FRAME BUILDERINDRA Address: home [address] [place] [address] Name: CLINICAL ABSTRACTORGREGG Address: home [address] [place] [address] Name: CARLOS PAZ Address: home [address] [place] [address]
--- OUTSIDE RECORDS SUMMARY | 2023-09-19 22:43 | XMS_ITS | Continuity of Care Document ---
Author Name Unknown Organization [facility] Address [address] [place] [address]- Care Team Providers Care Biomass Power Plant Manager Name Role Phone Maribel Marquez NP Primary Care Physician Encounter [facility] Date(s): 08/14/23 - 08/15/[address] [address]- Encounter Diagnosis Auditory hallucinations(Final) - 08/14/23 Intentional self-harm by glass(Final) - 08/14/23 Discharge Disposition: A-D/C Home Attending Physician: Joel Rivera MD Admitting Physician: Joel Rivera MD Referring Physician: Not on Staff, Referring MD Allergies, Adverse Reactions, Alerts Substance Reaction Severity Status codeine Active sulfa drugs Active Seafood Active lithium 1 Active penicillin [...] vaccine, inactivated 07/23/06 Russel rded tetanus/diphtheria/pertussis, acel(Tdap) 8/15/22 Given tetanus/diphtheria/pertussis, acel(Tdap) 04/20/21 Recorded tetanus/diphtheria/pertussis, acel(Tdap) [...] Virus Vaccine 03/15/79 Recor ded 1Result Comment: [facility] [id number] 2Early/Late Reason: Nursing Judgment Medications Albuterol (Eqv-Ventolin HFA) 90 mcg/inh inhalation aerosol 2 puffs, Inhalation, Every 6 hours, PRN Wheezing/Shortness of Breath, # 1 each, 5 Refills, Maintenance, 05/22/23 11:32:00 EDT, [facility], Partial fill upon patient request if the prescription is for a schedule II opioid drug., 2 puffs Inhal... Start Date: 05/22/23 Stop Date: 05/22/24 Status: Ordered albuterol CFC free 90 mcg/inh inhalation aerosol 90 mcg, 1, puffs, Inhalation, Every 4 hours, PRN, # 6.7 Gm, Refills 0, Tot. Refills 0, Maintenance,11/16/22 10:33:00 EST, Inhaler, Route to Pharmacy Electronically, NCPDP_[id number], [facility], 163, cm, 11/16/22 9:43:00 EST, Height, [...] 0 Refills, Maintenance, 11/16/22 10:33:00 EST, Tablet, [facility], Partial fill upon patient request if [...] 11/16/22 10:34:00 EST, Route to Pharmacy Electronically, [facility], Partial fill upon patientrequest if the [...] 60 tablet, 1 Refills, Maintenance,02/22/23 10:08:00 EDT, [facility], 146, cm, 02/05/23 20:22:00 EDT, Height, [...] 0 Refills, Maintenance, 11/16/22 10:34:00 EST, Tablet, [facility], Partial fill upon patient request if [...] 0 Refills, Maintenance, 11/16/22 10:34:00 EST, Tablet, [facility], Partial fill upon patient request if [...] 11:34:00 EDT, 05/22/23 11:32:00 EDT, ER Tablet, [facility], Partial fill upon patient request if the prescription is for a radha... Start Date: 05/22/23 Stop Date: 05/29/24 Status: Ordered nystatin topical 855962 u/gm cream 1 application, Topically, 2 times a day, # 15 Gm, 0 Refills, Maintenance, 01/05/23 15:04:00 EDT, Cream, [facility], Partial fill upon patient request if the prescription is for a schedule II opioid drug., 1 application Topically 2 times a da... Start Date: 01/05/23 Status: Ordered nystatin topical 925131 u/gm cream 0 Refills, Maintenance, 01/06/23 18:05:00 [...] 11/16/22 10:34:00 EST, Route to Pharmacy Electronically, [facility], Partial fill upon patient request if [...] Maintenance,11/16/22 10:34:00 EST, Route to Pharmacy Electronically, [facility], Partial fill upon patient request if [...] 2 Oxygen Saturation [94-100 %] 96 % (08/15/23 6:57 AM) 99 % (08/14/23 7:52 PM) Pulse Rate [55-90 bpm] 64 bpm (08/15/23 6:57 AM) 75 bpm (08/14/23 7:52 PM) Blood Pressure [90-138/55-84 mm Hg] 144/ 93mm Hg *H* (08/15/23 6:57 AM) 151/81mm Hg *H* (08/14/23 7:52 PM) Respiratory Rate [16-30 br/min] 16 br/mi n (08/15/23 6:57 AM) 18 br/min (08/14/23 7:52 PM) Temperature [96.8-100.4 DegF] 97.8 DegF (08/15/23 6:57 AM) 98.3 DegF (08/14/23 7:52 PM) Mode of Delivery (Oxygen) Room air (08/15/23 6:57 AM) Room air (08/14/23 7:52 PM) Blood pressure sites Arm, right (08/15/23 6:57 AM) Arm, right (08/14/23 7:52 PM) Temperature Route Oral (08/15/23 6:57 AM) Oral (08/14/23 7:52 PM) Social History Social History Type Response Smoking Status 10 or more cigarette s (1/2 pack or more)/day in last 30 days; Type: Cigarettes; Other: Reports smoking 1/2-1 packs/day, ending on level of stress; Started at age: 25; entered on: 11/18/22 Sex Patient Care team information Care Team Personnel Name: Rudi Ruiz RN Position: [facility] ED RN [...] Care Nurse Name: Alba Daily RN Position: [facility] RN Member Role: Primary Care Nurse Name: Maribel Marquez NP Position: [facility] PCO Associate Professional Member Role: PCP Address: Address: [address] [place] [address]- Name: Jose Ramirez RN Position: [facility] [...] Role: Primary Care Nurse Address: Address: [address] [facility] [address] Clinical & [place] [address]- [place] Name: Parvez Kaba MD Position: [facility] Renal MD Member Role: Lifetime Consulting Physician Address: Address: [address] [place] [address] [facility] [place] [address]- [place] Name: Mirna Paul RN Position: [facility] Villa RN Position: [facility] Hospital Air Intercept Controller Member Role: Primary Care Nurse Name: Joel Rivera MD Position: [facility] ED Medicine MD Member Role: Admitting Physician Address: Address: [address] [place] [address]- [place] Name: Meghan Gillespie Position: [facility] ED TA [facility] Name: Marie Rascon DO Position: [facility] Resident Member Role: ED Resident Address: Address: [address] [place] [address]- [place] Name: Dennys Browne RN Position: [facility] ED RN W/OE and Tasks Member Role: Patient Care Provider Care Team Related Persons Name: JO-ANN ROMANALLERGISTINDRA Address: [address] [place] [address] Name: HEALTH CARE MARKETING MANAGERGREGG Address: [address] [place] [address] Name: CARLOS PAZ Address: [address] [place] [address]
--- OUTSIDE RECORDS SUMMARY | 2023-09-19 22:43 | XMS_ITS | Continuity of Care Document ---
Author Name Unknown Organization [facility] Side Adult Address [address] [place] [address]- Care Team Providers Care Novelty Candy Maker Name Role Phone Maribel Marquez NP Primary Care Physician [phone] [facility]counter [facility] Date[facility]s): 08/10/23 - 09[facility]09[facility]23 [facility] [address] [place] [address]- Allergies, Adverse Reactions, Alerts Substance Reaction Severity [...] Virus Vaccine 03/15/79 Recor ded 1Result Comment: [facility] [id number] 2Early/Late Reason: Nursing Judgment Medications Advair Diskus 100 mcg-50 mcg inhalation powder 1, inhalation, Inhalation, 2 times a day, rinse mouth and throat after use, # 3 each, Refills 0, Tot. Refills 0, Maintenance, 08/29/23 13:08:00 EST, Powder, Route to Pharmacy Electronically, NCPDP_[id number], [facility], 163, cm, 08/29/23 12... Start Date: [...] 10:33:00 EST, Inhaler, Route to Pharmacy Electronically, WAPDP_[id number], [facility], 163, cm, 11/16/22 9:43:00 EST, Height, [...] 60 tablet, 1 Refills, Maintenance,02/22/23 10:08:00 EDT, [facility], 146, cm, 02/05/23 20:22:00 EDT, Height, [...] 0 Refills, Maintenance, 11/16/22 10:34:00 EST, Tablet, [facility], Partial fill upon patient request if [...] 0 Refills, Maintenance, 11/16/22 10:34:00 EST, Tablet, [facility], Partial fill upon patient request if [...] 11/16/22 10:34:00 EST, Route to Pharmacy Electronically, [facility], Partial fill upon patient request if [...] 11:34:00 EDT, 05/22/23 11:32:00 EDT, ER Tablet, [facility], Partial fill upon patient request if the prescription is for a radha... Start Date: 05/22/23 Stop Date: 05/29/24 Status: Ordered nicotine 2 mg oral transmucosal lozenge 1 lozenge = 2 mg, By Mouth, Every 2 hours, PRN as needed for smoking cessation, for 6 week(s), # 504 lozenge, 0 Refills, Acute 10/10/23 13:10:00 EST, 08/29/23 13:10:00 EST, [facility], Partial fill upon patient request if the prescription is... Start Date: 08/29/23 Stop Date: 10/10/23 Status: Ordered nystatin topical 190438 u/gm cream 1 application, Topically, 2 times a day, # 15 Gm, 0 Refills, Maintenance, 01/05/23 15:04:00 EDT, Cream, [facility], Partial fill upon patient request if the prescription is for a schedule II opioid drug., 1 application Topically 2 times a da... Start Date: 01/05/23 Status: Ordered nystatin topical 619530 u/gm cream 0 Refills, Maintenance, 01/06/23 18:05:00 [...] 11/16/22 10:34:00 EST, Route to Pharmacy Electronically, [facility], Partial fill upon patient request if [...] Maintenance,11/16/22 10:34:00 EST, Route to Pharmacy Electronically, [facility], Partial fill upon patient request if [...] Team Personnel Name: Rudi Ruiz RN Position: [facility] ED RN W/OE and Tasks Member Role: Primary Care Nurse Name: Alicja Riggs RN Position: [facility] RN Member Role: Primary Care Nurse Name: Ros Fu RN Position: [facility] RN Member Role: Primary Care Nurse Name: Hilda Mccabe RN Position: [facility] RN Member Role: Primary Care Nurse Name: Rosana Kearney RN Position: [facility] SN RN Member Role: Primary Care Nurse Name: Wil Flood RN Position: [facility] RN Member Role: Primary Care Nurse Name: Gagandeep Sheldon RN Position: [facility] RN Member Role: Primary Care Nurse Name: Alba Daily RN Position: [facility] RN Member Role: Primary Care Nurse Name: Maribel Marquez NP Position: [facility] PCO Associate Professional Member Role: PCP Address: Address: [address] [place] [address]- Name: Jose Ramirez RN Position: [facility] RN Member Role: Primary Care Nurse Name: Brittany Butts RN Position: [facility] AMB Nurse Member Role: Primary Care Nurse Name: Pauline Mcadams RN Position: [facility] RN Member Role: Primary Care Nurse Name: Mary Sánchez RN Position: [facility] RN Member Role: Primary Care Nurse Name: Shama Rosado RN Position: [facility] RN Member Role: Primary Care Nurse Name: Jackie Snyder RN Position: [facility] RN Member Role: Primary Care Nurse Name: Jay Burks NP Position: Reference Physician Member Role: Primary Care Nurse Address: Address: [address] [place], [place] [id number] Clinical & [place] [address]- Name: Parvez Kaba MD Position: [facility] Renal MD Member Role: Lifetime Consulting Physician Address: Address: [address] [place] [address] [facility] [place] [address]- Name: Mirna Paul RN Position: [facility] OB RN Member Role: Primary Care Nurse Name: Latonya Rahman RN Position: [facility] Onco RN Member Role: Primary Care Nurse Name: Viki Gonzalez RN Position: [facility] RN Member Role: Primary Care Nurse Name: Claudia Presley RN Position: [facility] RN Member Role: Primary Care Nurse Name: Iris Villa RN Position: [facility] Hospital Baseball Winder Member Role: Primary Care Nurse Care Team Related Persons Name: LISBETH- OPTICAL DESIGN ENGINEERINDRA Address: [address] [place] [address] Name: JEWELRY COATERGREGG Address: [address] [place] [address] Name: CARLOS PAZ Address: [address] [place] [address]
--- OUTSIDE RECORDS SUMMARY | 2023-09-19 22:44 | XMS_ITS | Continuity of Care Document ---
Author Name Unknown Organization [facility] Side Adult Address [address] [place] [address]- Care Team Providers Care Wastewater Engineer Name Role Phone Maribel Marquez NP Primary Care Physician Encounter [facility] Date(s): 07/20/23 - 08/19/23 [facility] Adult [address] [place] [address]- Allergies, Adverse Reactions, Alerts Substance Reaction Severity [...] Virus Vaccine 03/15/79 Recor ded 1Result Comment: [facility] [id number] 2Early/Late Reason: Nursing Judgment Medications Albuterol (Eqv-Ventolin HFA) 90 mcg/inh inhalation aerosol 2 puffs, Inhalation, Every 6 hours, PRN Wheezing/Shortness of Breath, # 1 each, 5 Refills, Maintenance, 05/22/23 11:32:00 EDT, [facility], Partial fill upon patient request if the prescription is for a schedule II opioid drug., 2 puffs Inhal... Start Date: 05/22/23 Stop Date: 05/22/24 Status: Ordered albuterol CFC free 90 mcg/inh inhalation aerosol 90 mcg, 1, puffs, Inhalation, Every 4 hours, PRN, # 6.7 Gm, Refills 0, Tot. Refills 0, Maintenance,11/16/22 10:33:00 EST, Inhaler, Route to Pharmacy Electronically, NCPDP_[id number], [facility], 163, cm, 11/16/22 9:43:00 EST, Height, 97.3,... Start Date: 11/16/22 Status: Ordered atorvastatin 10 mg oral tablet 1 tablet = 10 mg, By Mouth, Daily at bedtime, # 30 tablet, 0 Refills, Maintenance, 11/16/22 10:33:00 EST, Tablet, [facility], Partial [...] 10:33:00 EST, [facility] Pharmacy Electronically, [facility] 0 Refills, Maintenance, 11/16/22 10:33:00 EST, Tablet, [facility], Partial fill upon patient request if [...] 0 Refills, Maintenance, 08/16/23 23:25:00 EDT, Tablet, [facility], Partial fill upon patient request if [...] 11/16/22 10:34:00 EST, Route to Pharmacy Electronically, [facility], Partial fill upon patient request if [...] 11/16/22 10:34:00 EST, Route to Pharmacy Electronically, [facility], Partial fill upon patientrequest if the [...] 08/16/23 23:29:00 EDT, Route to Pharmacy Electronically, [facility], Partial fill upon patient request if [...] 02/12/23 10:51:00 EDT, Route to Pharmacy Electronically, [facility], Partial fill upon patient requestif the [...] 60 tablet, 1 Refills, Maintenance,02/22/23 10:08:00 EDT, [facility], 146, cm, 02/05/23 20:22:00 EDT, Height, [...] 0 Refills, Maintenance, 11/16/22 10:34:00 EST, Tablet, [facility], Partial fill upon patient request if [...] 0 Refills, Maintenance, 11/16/22 10:34:00 EST, Tablet, [facility], Partial fill upon patient request if [...] 11/16/22 10:34:00 EST, Route to Pharmacy Electronically, [facility], Partial fill upon patient request if [...] 11:34:00 EDT, 05/22/23 11:32:00 EDT, ER Tablet, [facility], Partial fill upon patient request if the prescription is for a radha... Start Date: 05/22/23 Stop Date: 05/29/24 Status: Ordered nystatin topical 583326 u/gm cream 1 application, Topically, 2 times a day, # 15 Gm, 0 Refills, Maintenance, 01/05/23 15:04:00 EDT, Cream, [facility], Partial fill upon patient request if the prescription is for a schedule II opioid drug., 1 application Topically 2 times a da... Start Date: 01/05/23 Status: Ordered nystatin topical 654367 u/gm cream 0 Refills, Maintenance, 01/06/23 18:05:00 [...] 11/16/22 10:34:00 EST, Route to Pharmacy Electronically, [facility], Partial fill upon patient request if [...] Maintenance,11/16/22 10:34:00 EST, Route to Pharmacy Electronically, [facility], Partial fill upon patient request if [...] Team Personnel Name: Rudi Ruiz RN Position: [facility] ED RN W/OE and Tasks Member Role: Primary Care Nurse Name: Alicja Riggs RN Position: [facility] RN Member Role: Primary Care Nurse Name: Ros Fu RN Position: S RN Member Role: Primary Care Nurse Name: Hilda Mccabe RN Position: [facility] RN Member Role: Primary Care Nurse Name: Rosana Kearney RN Position: [facility] SN RN Member Role: Primary Care Nurse Name: Wil Flood RN Position: [facility] RN Member Role: Primary Care Nurse Name: Gagandeep Sheldon RN Position: [facility] RN Member Role: Primary Care Nurse Name: Alba Daily RN Position: [facility] RN Member Role: Primary Care Nurse Name: Maribel Marquez NP Position: [facility] PCO Associate Professional Member Role: PCP Address: Address: [address] [place] [address]- Name: Jose Ramirez RN Position: [facility] RN Member Role: Primary Care Nurse Name: Brittany Btuts RN Position: [facility] AMB Nurse Member Role: Primary Care Nurse Name: Pauline Mcadams RN Position: [facility] RN Member Role: Primary Care Nurse Name: Mary Sánchez RN Position: [facility] RN Member Role: Primary Care Nurse Name: Shama Rosado RN Position: [facility] RN Member Role: Primary Care Nurse Name: Jackie Snyder RN Position: [facility] RN Member Role: Primary Care Nurse Name: Jay Burks NP Position: Reference Physician Member Role: Primary Care Nurse Address: Address: [address] [place], [place] [id number] Clinical & [place] [address]- [place] Name: Parvez Kaba MD Position: [facility] Renal MD Member Role: Lifetime Consulting Physician Address: Address: [address] [place] [address] [facility] [place] [address]- Name: Mirna Paul RN Position: [facility] OB RN Member Role: Primary Care Nurse Name: Latonya Rahman RN Position: [facility] Onco RN Member Role: Primary Care Nurse Name: Viki Gonzalez RN Position: [facility] RN Member Role: Primary Care Nurse Name: Clauida Presley RN Position: [facility] RN Member Role: Primary Care Nurse Name: Iris Villa RN Position: [facility] Hospital Cab Starter Member Role: Primary Care Nurse Care Team Related Persons Name: JO-ANN ROMANSUPERVISOR BIT AND SHANK DEPARTMENTINDRA Address: [address] [place] [address] Name: HUMAN RESOURCES HR REPRESENTATIVEGREGG Address: [address] [place] [address] Name: CALROS PAZ Address: [address] [place] [address]
--- OUTSIDE RECORDS SUMMARY | 2023-09-19 22:44 | XMS_ITS | Continuity of Care Document ---
Author Name Unknown Organization [facility] ter Address [address] [place] [id number]- Care Team Providers Care Bioinformatics Analyst Name Role Phone Maribel Marquez NP Primary Care Physician Encounter [facility] Date(s): 08/06/23 - 08/07/[address] [address]- Encounter Diagnosis Deliberate self-cutting(Final) - 08/06/23 Suicidal ideation(Final) - 08/06/23 Discharge Disposition: A-D/C Home Attending Physician: Val [...] each, 5 Refills, Maintenance, 05/22/23 11:32:00 EDT, [facility], Partial fill upon patient request if the prescription is for a schedule II opioid drug., 2 puffs Inhal... Start Date: 05/22/23 Stop Date: 05/22/24 Status: Ordered albuterol CFC free 90 mcg/inh inhalation aerosol 90 mcg, 1, puffs, Inhalation, Every 4 hours, PRN, # 6.7 Gm, Refills 0, Tot. Refills 0, Maintenance,11/16/22 10:33:00 EST, Inhaler, Route to Pharmacy Electronically, [id number], [facility], 163, cm, 11/16/22 9:43:00 EST, Height, 97.3,... Start Date: 11/16/22 Status: Ordered atorvastatin 10 mg oral tablet 1 tablet = 10 mg, By Mouth, Daily at bedtime, # 30 tablet, 0 Refills, Maintenance, 11/16/22 10:33:00 EST, Tablet, [facility], Partial fill upon patient request if [...] 11/16/22 10:33:00 EST, Route to Pharmacy Electronically, [facility], Partial fill upon patientrequest if the [...] 0 Refills, Maintenance, 11/16/22 10:33:00 EST, Tablet, [facility], Partial fill upon patient request if [...] 11/16/22 10:34:00 EST, Route to Pharmacy Electronically, [facility], Partial fill upon patient request if the prescription is for a schedule II opioid d... Start Date: 11/16/22 Stop Date: 08/13/23 Status: Ordered FLUoxetine 20 mg oral capsule 80 mg, 4, capsule, By Mouth, Daily in AM, # 120 capsule, Refills 0, Tot. Refills 0, Maintenance, 11/16/22 10:34:00 EST, Route to Pharmacy Electronically, [facility], Partial fill upon patient request if [...] 02/12/23 10:51:00 EDT, [place] Pharmacy Electron[place], [facility] [...] 60 tablet, 1 Refills, Maintenance,02/22/23 10:08:00 EDT, [facility], 146, cm, 02/05/23 20:22:00 EDT, Height, [...] 11:34:00 EDT, 05/22/23 11:32:00 EDT, ER Tablet, [facility], Partial fill upon patient request if the prescription is for a radha... Start Date: 05/22/23 Stop Date: 05/29/24 Status: Ordered nystatin topical [id number] u/gm cream 1 application, Topically, 2 times a day, # 15 Gm, 0 Refills, Maintenance, 01/05/23 15:04:00 EDT, Cream, [facility], Partial fill upon patient request if the prescription is for a schedule II opioid drug., 1 application Topically 2 times a da... Start Date: 01/05/23 Status: Ordered nystatin topical 869679 u/gm cream 0 Refills, Maintenance, 01/06/23 18:05:00 [...] 11/16/22 10:34:00 EST, Route to Pharmacy Electronically, [facility], Partial fill upon patient request if [...] Maintenance,11/16/22 10:34:00 EST, Route to Pharmacy Electronically, [facility], Partial fill upon patient request if [...] 2 Oxygen Saturation [94-100 %] 98 % (08/07/23 2:10 AM) 96 % (08/06/23 9:56 PM) Pulse Rate [55-90 bpm] 77 bpm (08/07/23 2:10 AM) 80 bpm (08/06/23 9:56 PM) Blood Pressure [90-138/55-84 mm Hg] 113/ 66mm Hg (08/06/23 9:56 PM) Respiratory Rate [16-30 br/min] 15 br/mi n *L* (08/07/23 2:10 AM) 18 br/min (08/06/23 9:56 PM) Temperature [96.8-100.4 DegF] 98.5 DegF (08/06/23 9:56 PM) Mode of Delivery (Oxygen) Room air (08/07/23 2:10 AM) Room air (08/06/23 9:56 PM) Blood pressure sites Arm, left (08/06/23 9:56 PM) Temperature Route Oral (08/06/23 9:56 PM) Social History Social History Type Response [...] Care Nurse Name: Alba Daily RN Position: [facility] RN Member Role: Primary Care Nurse Name: Maribel Marquez NP Position: [facility] PCO Associate Professional Member Role: PCP Address: Address: [address] [place] [id number]- Name: Jose Ramirez RN [facility] RN Member Role: Primary Care Nurse Name: Jacike Snyder RN Position: [facility] RN Member Role: Primary Care Nurse Name: Jay Burks NP Position: Reference Physician Member Role: Primary Care Nurse Address: Address: [address] [place] [address] [address] Clinical [facility] [place] [address]- Name: Parvez Kaba MD Position: [facility] Renal MD Member Role: Lifetime Consulting Physician Address: Address: [address] [place] [address] [facility] [place] [address]- [place] Name: Mirna Paul RN Position: [facility] Villa RN Position: [facility] Hospital Community Coordinator [employer] Member Role: Primary Care Nurse Name: Chel Li RN Position: [facility] ED RN W/OE and Tasks Member Role: Patient Care Provider Name: Val Dietz DO Position: [facility] ED Medicine MD Member Role: Admitting Physician Address: Address: [address] [place] [phone]- Name: Marie Rascon DO Position: [facility] Resident Member Role: ED Resident Address: Address: [address] [place] [address]- Care Team Related Persons Name: LISBETH- SUTURE POLISHERINDRA Address: [address] [place] [address] Name: WEED CONTROL INSPECTORGREGG Address: [address] [place] [address] Name: CARLOS PAZ Address: [address] [place] [address]
--- OUTSIDE RECORDS SUMMARY | 2023-09-19 22:45 | XMS_ITS | Continuity of Care Document ---
Author Name Unknown Organization [facility] Adult Address [address] [place] [address]- Care Team Providers Care Career Education Teacher Name Role Phone Maribel Marquez NP Primary Care Physician Encounter [facility] Date(s): 08/06/23 - 09/05/23 [facility] Adult [address] [place] [address]- Allergies, Adverse Reactions, Alerts Substance Reaction Severity [...] 1Result Comment: [facility] [id number] 2Early/Late Reason: Nursing Judgment Medications Advair Diskus 100 mcg-50 mcg inhalation powder 1, inhalation, Inhalation, 2 times a day, rinse mouth and throat after use, # 3 each, Refills 0, Tot. Refills 0, Maintenance, 08/29/23 13:08:00 EST, Powder, Route to Pharmacy Electronically, [id number]_[id number], [facility], 163, cm, 08/29/23 12... Start Date: 08/29/23 Stop Date: 11/27/23 Status: Ordered Albuterol (Eqv-Ventolin HFA) 90 mcg/inh inhalation aerosol 2 puffs, Inhalation, Every 6 hours, PRN Wheezing/Shortness of Breath, # 1 each, 5 Refills, Maintenance, 05/22/23 11:32:00 EDT, [facility], Partial fill upon patient request if the prescription is for a schedule II opioid drug., 2 puffs Inhal... Start Date: 05/22/23 Stop Date: 05/22/24 Status: Ordered albuterol CFC free 90 mcg/inh inhalation aerosol 90 mcg, 1, puffs, Inhalation, Every 4 hours, PRN, # 6.7 Gm, Refills 0, Tot. Refills 0, Maintenance,11/16/22 10:33:00 EST, Inhaler, Route to Pharmacy Electronically, [id number], [facility], 163, cm, 11/16/22 9:43:00 EST, Height, [...] 0 Refills, Maintenance, 08/16/23 23:25:00 EDT, Tablet, [facility], Partial fill upon [...] 08/16/23 23:29:00 EDT, [facility], [facility] [...] 60 tablet, 1 Refills, Maintenance,02/22/23 10:08:00 EDT, [facility], 146, cm, 02/05/23 20:22:00 EDT, Height, [...] 0 Refills, Maintenance, 11/16/22 10:34:00 EST, Tablet, [facility], Partial fill upon patient request if [...] 0 Refills, Maintenance, 11/16/22 10:34:00 EST, Tablet, [facility], Partial fill upon patient request if [...] 11/16/22 10:34:00 EST, Route to Pharmacy Electronically, [facility], Partial fill upon patient request if [...] 11:34:00 EDT, 05/22/23 11:32:00 EDT, ER Tablet, [facility], Partial fill upon patient request if the prescription is for a radha... Start Date: 05/22/23 Stop Date: 05/29/24 Status: Ordered nicotine 2 mg oral transmucosal lozenge 1 lozenge = 2 mg, By Mouth, Every 2 hours, PRN as needed for smoking cessation, for 6 week(s), # 504 lozenge, 0 Refills, Acute 10/10/23 13:10:00 EST, 08/29/23 13:10:00 EST, [facility], Partial fill upon patient request if the prescription is... Start Date: 08/29/23 Stop Date: 10/10/23 Status: Ordered nystatin topical [id number] u/gm cream 1 application, Topically, 2 times a day, # 15 Gm, 0 Refills, Maintenance, 01/05/23 15:04:00 EDT, Cream, [facility], Partial fill upon patient request if the prescription is for a schedule II opioid drug., 1 application Topically 2 times a da... Start Date: 01/05/23 Status: Ordered nystatin topical 535971 u/gm cream 0 Refills, Maintenance, 01/06/23 18:05:00 [...] 11/16/22 10:34:00 EST, Route to Pharmacy Electronically, [facility], Partial fill upon patient request if [...] Maintenance,11/16/22 10:34:00 EST, Route to Pharmacy Electronically, [facility], Partial fill upon patient request if [...] Team Personnel Name: Rudi Ruiz RN Position: [facility] ED RN W/OE and Tasks Member Role: Primary Care Nurse Name: Alicja Riggs RN Position: [facility] RN Member Role: Primary Care Nurse Name: Ros Fu RN Position: [facility] RN Member Role: Primary Care Nurse Name: Hilda Mccabe RN Position: [facility] RN Member Role: Primary Care Nurse Name: Rosana Kearney RN Position: [facility] SN RN Member Role: Primary Care Nurse Name: Wil Flood RN Position: [facility] RN Member Role: Primary Care Nurse Name: Gagandeep Sheldon RN Position: [facility] RN Member Role: Primary Care Nurse Name: Alba Daily RN Position: [facility] RN Member Role: Primary Care Nurse Name: Maribel Marquez NP Position: [facility] PCO Associate Professional Member Role: PCP Address: Address: [address] [place] [id number]- Name: Jose Ramirez RN Position: [facility] RN Member Role: Primary Care Nurse Name: Brittany Butts RN Position: [facility] AMB Nurse Member Role: Primary Care Nurse Name: Pauline Mcadams RN Position: [facility] RN Member Role: Primary Care Nurse Name: Mary Sánchez RN Position: [facility] RN Member Role: Primary Care Nurse Name: Shama Rosado RN Position: [facility] RN Member Role: Primary Care Nurse Name: Jackie Snyder RN Position: [facility] RN Member Role: Primary Care Nurse Name: Jay Burks NP Position: Reference Physician Member Role: Primary Care Nurse Address: Address: [address] [place], [place] [id number] [facility] [place] [address]- Name: Parvez Kaba MD Position: [facility] Renal MD Member Role: Lifetime Consulting Physician Address: Address: [address] [place] [address] [facility] [place] [address]- Name: Mirna Paul RN Position: [facility] OB RN Member Role: Primary Care Nurse Name: Latonya Rahman RN Position: [facility] Onco RN Member Role: Primary Care Nurse Name: Viki Gonzalez RN Position: [facility] RN Member Role: Primary Care Nurse Name: Claudia Presley RN Position: [facility] RN Member Role: Primary Care Nurse Name: Iris Villa RN Position: [facility] Hospital Internet Ecommerce Specialist Member Role: Primary Care Nurse Care Team Related Persons Name: LISBETH- LEAD MINERINDRA Address: [address] [place] [address] Name: DEPUTY SHERIFF COURT SERVICESGREGG Address: [address] [place] [address] Name: CARLOS PAZ Address: [address] [place] [address]
--- OUTSIDE RECORDS SUMMARY | 2023-09-19 22:46 | XMS_ITS | Continuity of Care Document ---
Author Name Unknown Organization [facility] Adult Address [address] [place] [address]- Care Team Providers Care Float Builder Name Role Phone Maribel Marquez NP Primary Care Physician Encounter [facility] Date(s): 08/29/23 - 09/05/23 [facility] Adult [address] [place] [id number]- Encounter Diagnosis Pneumonia(Discharge Diagnosis) - 08/29/23 Encounter for smoking cessation counseling(Discharge Diagnosis) - 08/29/23 Tobacco dependence(Discharge Diagnosis) - 08/29/23 Hyperinflation of lungs(Discharge Diagnosis) - 08/29/23 Poorly controlled persistent asthma(Discharge Diagnosis) - 08/29/23 Attending Physician: Maribel Marquez NP Allergies, Adverse [...] Virus Vaccine 03/15/79 Recor ded 1Result Comment: [facility] [id number] 2Early/Late Reason: Nursing Judgment Medications Advair Diskus 100 mcg-50 mcg inhalation powder 1, inhalation, Inhalation, 2 times a day, rinse mouth and throat after use, # 3 each, Refills 0, Tot. Refills 0, Maintenance, 08/29/23 13:08:00 EST, Powder, Route to Pharmacy Electronically, NCPDP_[id number], [facility], 163, cm, 08/29/23 12... Start Date: 08/29/23 Stop Date: 11/27/23 Status: Ordered Albuterol (Eqv-Ventolin HFA) 90 mcg/inh inhalation aerosol 2 puffs, Inhalation, Every 6 hours, PRN Wheezing/Shortness of Breath, # 1 each, 5 Refills, Maintenance, 05/22/23 11:32:00 EDT, [facility], Partial fill upon patient request if the prescription is for a schedule II opioid drug., 2 puffs Inhal... Start Date: 05/22/23 Stop Date: 05/22/24 Status: Ordered albuterol CFC free 90 mcg/inh inhalation aerosol 90 mcg, 1, puffs, Inhalation, Every 4 hours, PRN, # 6.7 Gm, Refills 0, Tot. Refills 0, Maintenance,11/16/22 10:33:00 EST, Inhaler, Route to Pharmacy Electronically, NCPDP_[id number], [facility], 163, cm, 11/16/22 9:43:00 EST, Height, 97.3,... Start Date: 11/16/22 Status: Ordered atorvastatin 10 mg oral tablet 1 tablet = 10 mg, By Mouth, Daily at bedtime, # 30 tablet, 0 Refills, Maintenance, 11/16/22 10:33:00 EST, Tablet, [facility], Partial fill upon patient request if [...] 11/16/22 10:33:00 EST, Route to Pharmacy Electronically, [facility], Partial fill upon patientrequest if the [...] 0 Refills, Maintenance, 08/16/23 23:25:00 EDT, Tablet, [facility], Partial fill [...] 08/16/23 23:29:00 EDT, [facility] [...] 02/12/23 10:51:00 EDT, Route to Pharmacy Electronically, [facility], Partial fill upon patient requestif the [...] 60 tablet, 1 Refills, Maintenance,02/22/23 10:08:00 EDT, [facility], 146, cm, 02/05/23 20:22:00 EDT, Height, [...] 0 Refills, Maintenance, 11/16/22 10:34:00 EST, Tablet, [facility], Partial fill upon patient request if the prescription is for a schedule II opioid drug., juan j Marrero, 11/16/22 9:43:00 EST,... Start Date: 11/16/22 Status: [...] prescription is fora schedule II opioid drug., juan j Marrero, 11/16/22 9:43:... Start Date: 11/16/22 Status: Ordered [...] 11:34:00 EDT, 05/22/23 11:32:00 EDT, ER Tablet, [facility], Partial fill upon patient request if the prescription is for a radha... Start Date: 05/22/23 Stop Date: 05/29/24 Status: Ordered nicotine 2 mg oral transmucosal lozenge 1 lozenge = 2 mg, By Mouth, Every 2 hours, PRN as needed for smoking cessation, for 6 week(s), # 504 lozenge, 0 Refills, Acute 10/10/23 13:10:00 EST, 08/29/23 13:10:00 EST, [facility], Partial fill upon patient request if the prescription is... Start Date: 08/29/23 Stop Date: 10/10/23 Status: Ordered nystatin topical 753136 u/gm cream 1 application, Topically, 2 times a day, # 15 Gm, 0 Refills, Maintenance, 01/05/23 15:04:00 EDT, Cream, [facility], Partial fill upon patient request if the prescription is for a schedule II opioid drug., 1 application Topically 2 times a da... Start Date: 01/05/23 Status: Ordered nystatin topical 154636 u/gm cream 0 Refills, Maintenance, 01/06/23 18:05:00 [...] 11/16/22 10:34:00 EST, Route to Pharmacy Electronically, [facility], Partial fill upon patient request if [...] Maintenance,11/16/22 10:34:00 EST, Route to Pharmacy Electronically, [facility], Partial fill upon patient request if [...] Effective Dates Health Status Clinical Service Informant Pneumonia Discharge Diagnosis 08/29/23 Encounter for smoking cessation counseling Discharge Diagnosis 08/29/23 Tobacco dependence Discharge Diagnosis 08/29/23 Hyperinflation of lungs Discharge Diagnosis 08/29/23 Poorly controlled persistent asthma Discharge Diagnosis 08/29/23 Vital Signs Most recent to oldest [Reference Range]: 1 Height 163 cm (08/29/23 12:47 PM) Weight 102.5 kg (08/29/23 12:47 PM) Oxygen Saturation [94-100 %] 95 % (08/29/23 12:47 PM) Pulse Rate [55-90 bpm] 106 bpm *H* (08/29/23 12:47 PM) Body Mass Index [18.5-24.99 kg/m2] 38.58 kg/m2 *>HHI* (08/29/23 12:47 PM) Blood Pressure [90-138/55-84 mm Hg] 106/ 73mm Hg (08/29/23 12:47 PM) Temperature [96.8-100.4 DegF] 97.8 DegF (08/29/23 12:47 PM) Mode of Delivery (Oxygen) Room air (08/29/23 12:47 PM) Blood pressure sites Arm, left (08/29/23 12:47 PM) Temperature Route Oral (08/29/23 12:47 PM) Weight Obtained Via Standing scale (08/29/23 12:47 PM) Social History Social History Type Response Smoking Status 10 or more cigarette s (1/2 pack or more)/day in last 30 days; Type: Cigarettes; Other: Reports smoking 1/2-1 packs/day, ending on level of stress; Started at age: 25; entered on: 11/18/22 Sex Note * Chel Bazan: PERFORM, SIGN, VERIFY Event Display: Patient Education/Instruction Authored Date: [id number] [facility] Clinical Summary Name IGOR KAUFMAN Age 47 Years 1975 PCP Maribel Marquez NP PCP Visit Date 08/29/2023 12:41:00 Additional Instructions: Annual exam David Scheduled Appointments?? Future Appointments ?*[facility] [address],??[address] ?Phone:??--?Fax:??-- ?Appt. Date:??11/12/2023?11:35 AM ?Scheduled Provider:??Maribel Marquez NP Follow-Up Instructions ?? Diagnosis Other specified symptoms and signs involving the circulatory and respiratory systems; Nicotine dependence, unspecified, uncomplicated; Pneumonia, unspecified organism; Shortness of breath; Other asthma; Tobacco abuse counseling Medications: Please continue your medications until treatment is completed or stopped by your provider. Discuss any questions related to medications with your provider. New Medications [facility], [address] [place] [phone], [phone] Fluticasone-Salmeterol (Advair Diskus 100 mcg-50 mcg inhalation powder) 1 inhalation Inhalation twice a day for 90 Days. rinse mouth and throat after use. Refills: 0. Next Dose: Nicotine (nicotine 2 mg oral transmucosal lozenge) 1 lozenge(s) Oral every 2 hours as needed as needed for smoking cessation for 6 week(s). Refills: 0. Next Dose: Medications to Continue with No Changes These medications were not printed or sent to your pharmacy Albuterol (Albuterol (Eqv-Ventolin HFA) 90 mcg/inh inhalation aerosol) 2 puff(s) Inhalation every 6hours as needed Wheezing/Shortness of Breath. Refills: 5. Next Dose: Albuterol (albuterol CFC free 90 mcg/inh inhalation aerosol) 1 puff(s) Inhalation every 4 hours as needed Wheezing/Shortness of Breath. Refills: 0. Next Dose: Atorvastatin (atorvastatin 10 mg oral tablet) Next Dose: Atorvastatin (atorvastatin 10 mg oral tablet) 1 tab(s) Oral Daily at Bedtime. Refills: 0. Next Dose: Benztropine (benztropine 1 mg oral tablet) Next Dose: Benztropine (benztropine 1 mg oral tablet) 1 tab(s) Oral twice a day. Next Dose: Benztropine (benztropine 1 mg oral [...] as needed Anxiety. Refills: 0. Next Dose: Famotidine (famotidine 10 mg oral tablet) 1 tab(s) Oral twice a day. Refills: 0. Next Dose: Ferrous Sulfate (ferrous [...] twice a day. Refills: 0. Next Dose: Ibuprofen (ibuprofen 400 mg oral tablet) 2 tab(s) Oral every 6 hours as needed Pain , Severe. Refills: 0. Next Dose: Lactulose (lactulose 10 g/15 mL oral and rectal liquid) Next Dose: Lisinopril (lisinopril 5 mg oral tablet) Next Dose: Lisinopril (lisinopril 5 mg oral tablet) 1 tab(s) Oral Daily. Next Dose: Lisinopril (lisinopril 5 mg oral tablet) 1 tab(s) Oral Daily. Refills: 0. Next Dose: [place] (lithium 300 mg oral capsule) 1 capsule Oral Daily. Next Dose: Melatonin (Melatonin 5 mg oral tablet) 2 tab(s) Oral Daily at Bedtime as needed NEEDED FOR SLEEP. Refills: 1. Next Dose: Metformin (metFORMIN 500 mg oral tablet) Next Dose: Metformin (metFORMIN 500 mg oral tablet) 1 Each Oral twice a day. Refills: 0. Next Dose: Metformin (metFORMIN 500 mg oral tablet) 1 tab(s) Oral twice a day. Next Dose: Metformin (metFORMIN 500 mg oral [...] (montelukast 10 mg oral tablet) Next Dose: Naproxen (naproxen 375 mg (as sodium) oral tablet, extended release) 1 tab(s) Oral twice a day as needed Pain , Moderate. with food. Refills: 0. Next Dose: Nystatin Topical (nystatin topical 035953 u/gm cream) Next Dose: Nystatin Topical (nystatin topical 867854 u/gm cream) 1 [place] Topically twice a [...] lithium;codeine Medications Given This Visit Future Orders ?Fecal Occult Blood Immunochemical? Order Date:08/29/23?- Complete on or after?08/29/23 Vital Signs Height 163 cm Weight 102.5 kg BMI 38.58 kg/m2 Blood Pressure 106 mm Hg/73 mm Hg Temperature 97.8 DegF Pulse Rate 106 bpm Respiratory Rate 02 Sat Mode of Delivery 95 %/Room air You can now view a summary of your hospital visit from the comfort of your home through a free online portal called [facility]. [facility] is a website that allows you to securely view your medical information including discharge summary, medications and follow-up visits. ??You can alsosend a secure electronic message to your doctor???s office to request appointments, renew medications or just ask a question. You can enroll at [email or web address] or register during your [...] primary care provider, you may find a [facility] provider by calling [facility] at [phone]. [facility], in keeping with [facility] guidance, no longer requires face masks for staff, patientsor visitors in most situations. Similar to time spent indoors at other locations, there is the chance that you were exposed to respiratory viruses during your time with us (such as flu or COVID-19).? If you develop symptoms concerning for a viral respiratory infection, please seek testing (and treatment if indicated) from your medical provider or home test kit. For information about the plan of care including goals and instructions for your diagnosis, please see the patient education orders section of this document. Patient Education Materials?? The content of this educational material or handout may have been modified, supplemented, or adapted from its original content and format to support your individualized medical care. * Roxanne Holliday: PERFORM, SIGN, VERIFY Event Display: Patient Education/Instruction Authored Date: [id number] [facility] Clinical Summary Name IGOR KAUFMAN Age 47 Years 1975 PCP Maribel Marquez NP PCP Visit Date 08/29/2023 12:41:00 Additional Instructions: Annual exam David Scheduled Appointments?? Future Appointments ?*[facility] ?[address],??[address] ?Phone:??--?Fax:??-- ?Appt. Date:??11/12/2023?11:35 AM ?Scheduled Provider:??Maribel Marquez NP Follow-Up Instructions ?? Diagnosis Medications: Please continue your medications until treatment is completed or stopped by your provider. Discuss any questions related to medications with your provider. New Medications [facility], [address] [place] [phone], [phone] Fluticasone-Salmeterol (Advair Diskus 100 mcg-50 mcg inhalation powder) 1 inhalation Inhalation twice a day for 90 Days. rinse mouth and throat after use. Refills: 0. Next Dose: Nicotine (nicotine 2 mg oral transmucosal lozenge) 1 lozenge(s) Oral every 2 hours as needed as needed for smoking cessation for 6 week(s). Refills: 0. Next Dose: Medications to Continue with No Changes These medications were not printed or sent to your pharmacy Albuterol (Albuterol (Eqv-Ventolin HFA) 90 mcg/inh inhalation aerosol) 2 puff(s) Inhalation every 6hours as needed Wheezing/Shortness of Breath. Refills: 5. Next Dose: Albuterol (albuterol CFC free 90 mcg/inh inhalation aerosol) 1 puff(s) Inhalation every 4 hours as needed Wheezing/Shortness of Breath. Refills: 0. Next Dose: Atorvastatin (atorvastatin 10 mg oral tablet) Next Dose: Atorvastatin (atorvastatin 10 mg oral tablet) 1 tab(s) Oral Daily at Bedtime. Refills: 0. Next Dose: Benztropine (benztropine 1 mg oral tablet) Next Dose: Benztropine (benztropine 1 mg oral tablet) 1 tab(s) Oral twice a day. Next Dose: Benztropine (benztropine 1 mg oral [...] as needed Anxiety. Refills: 0. Next Dose: Famotidine (famotidine 10 mg oral tablet) 1 tab(s) Oral twice a day. Refills: 0. Next Dose: Ferrous Sulfate (ferrous [...] twice a day. Refills: 0. Next Dose: Ibuprofen (ibuprofen 400 mg oral tablet) 2 tab(s) Oral every 6 hours as needed Pain , Severe. Refills: 0. Next Dose: Lactulose (lactulose 10 g/15 mL oral and rectal liquid) Next Dose: Lisinopril (lisinopril 5 mg oral tablet) Next Dose: Lisinopril (lisinopril 5 mg oral tablet) 1 tab(s) Oral Daily. Next Dose: Lisinopril (lisinopril 5 mg oral tablet) 1 tab(s) Oral Daily. Refills: 0. Next Dose: [place] (lithium 300 mg oral capsule) 1 capsule Oral Daily. Next Dose: Melatonin (Melatonin 5 mg oral tablet) 2 tab(s) Oral Daily at Bedtime as needed NEEDED FOR SLEEP. Refills: 1. Next Dose: Metformin (metFORMIN 500 mg oral tablet) Next Dose: Metformin (metFORMIN 500 mg oral tablet) 1 Each Oral twice a day. Refills: 0. Next Dose: Metformin (metFORMIN 500 mg oral tablet) 1 tab(s) Oral twice a day. Next Dose: Metformin (metFORMIN 500 mg oral [...] (montelukast 10 mg oral tablet) Next Dose: Naproxen (naproxen 375 mg (as sodium) oral tablet, extended release) 1 tab(s) Oral twice a day as needed Pain , Moderate. with food. Refills: 0. Next Dose: Nystatin Topical (nystatin topical 598989 u/gm cream) Next Dose: Nystatin Topical (nystatin topical 179389 u/gm cream) 1 [place] Topically twice a [...] lithium;codeine Medications Given This Visit Future Orders ?Fecal Occult Blood Immunochemical? Order Date:08/29/23?- Complete on or after?08/29/23 Vital Signs Height 163 cm Weight 102.5 kg BMI 38.58 kg/m2 Blood Pressure 106 mm Hg/73 mm Hg Temperature 97.8 DegF Pulse Rate 106 bpm Respiratory Rate 02 Sat Mode of Delivery 95 %/Room air You can now view a summary of your hospital visit from the comfort of your home through a free online portal called [facility]. [facility] is a website that allows you to securely view your medical information including discharge summary, medications and follow-up visits. ??You can alsosend a secure electronic message to your doctor???s office to request appointments, renew medications or just ask a question. You can enroll at [email or web address] or register during your [...] primary care provider, you may find a [facility] provider by calling [facility] at [phone]. [facility], in keeping with [facility] guidance, no longer requires face masks for staff, patientsor visitors in most situations. Similar to time spent indoors at other locations, there is the chance that you were exposed to respiratory viruses during your time with us (such as flu or COVID-19).? If you develop symptoms concerning for a viral respiratory infection, please seek testing (and treatment if indicated) from your medical provider or home test kit. For information about the plan of care including goals and instructions for your diagnosis, please see the patient education orders section of this document. Patient Education Materials?? The content of this educational material or handout may have been modified, supplemented, or adapted from its original content and format to support your individualized medical care. * Maribel Marquez NP: PERFORM, SIGN, VERIFY Event Display: Patient Education/Instruction Authored Date: [id number] [facility] Clinical Summary Name IGOR KAUFMAN Age 47 Years 1975 PCP Maribel Marquez NP PCP Visit Date 08/29/2023 12:41:00 Additional Instructions: Annual exam David Scheduled Appointments?? Future Appointments ?*[facility] ?[address],??[address] ?Phone:??--?Fax:??-- ?Appt. Date:??11/12/2023?11:35 AM ?Scheduled Provider:??Maribel Marquez NP Follow-Up Instructions ?? Diagnosis Medications: Please continue your medications until treatment is completed or stopped by your provider. Discuss any questions related to medications with your provider. New Medications [facility], [address] [place] [phone], [phone] Fluticasone-Salmeterol (Advair Diskus 100 mcg-50 mcg inhalation powder) 1 inhalation Inhalation twice a day for 90 Days. rinse mouth and throat after use. Refills: 0. Next Dose: Nicotine (nicotine 2 mg oral transmucosal lozenge) 1 lozenge(s) Oral every 2 hours as needed as needed for smoking cessation for 6 week(s). Refills: 0. Next Dose: Medications to Continue with No Changes These medications were not printed or sent to your pharmacy Albuterol (Albuterol (Eqv-Ventolin HFA) 90 mcg/inh inhalation aerosol) 2 puff(s) Inhalation every 6hours as needed Wheezing/Shortness of Breath. Refills: 5. Next Dose: Albuterol (albuterol CFC free 90 mcg/inh inhalation aerosol) 1 puff(s) Inhalation every 4 hours as needed Wheezing/Shortness of Breath. Refills: 0. Next Dose: Atorvastatin (atorvastatin 10 mg oral tablet) Next Dose: Atorvastatin (atorvastatin 10 mg oral tablet) 1 tab(s) Oral Daily at Bedtime. Refills: 0. Next Dose: Benztropine (benztropine 1 mg oral tablet) Next Dose: Benztropine (benztropine 1 mg oral tablet) 1 tab(s) Oral twice a day. Next Dose: Benztropine (benztropine 1 mg oral [...] as needed Anxiety. Refills: 0. Next Dose: Famotidine (famotidine 10 mg oral tablet) 1 tab(s) Oral twice a day. Refills: 0. Next Dose: Ferrous Sulfate (ferrous [...] twice a day. Refills: 0. Next Dose: Ibuprofen (ibuprofen 400 mg oral tablet) 2 tab(s) Oral every 6 hours as needed Pain , Severe. Refills: 0. Next Dose: Lactulose (lactulose 10 g/15 mL oral and rectal liquid) Next Dose: Lisinopril (lisinopril 5 mg oral tablet) Next Dose: Lisinopril (lisinopril 5 mg oral tablet) 1 tab(s) Oral Daily. Next Dose: Lisinopril (lisinopril 5 mg oral tablet) 1 tab(s) Oral Daily. Refills: 0. Next Dose: [place] (lithium 300 mg oral capsule) 1 capsule Oral Daily. Next Dose: Melatonin (Melatonin 5 mg oral tablet) 2 tab(s) Oral Daily at Bedtime as needed NEEDED FOR SLEEP. Refills: 1. Next Dose: Metformin (metFORMIN 500 mg oral tablet) Next Dose: Metformin (metFORMIN 500 mg oral tablet) 1 Each Oral twice a day. Refills: 0. Next Dose: Metformin (metFORMIN 500 mg oral tablet) 1 tab(s) Oral twice a day. Next Dose: Metformin (metFORMIN 500 mg oral [...] (montelukast 10 mg oral tablet) Next Dose: Naproxen (naproxen 375 mg (as sodium) oral tablet, extended release) 1 tab(s) Oral twice a day as needed Pain , Moderate. with food. Refills: 0. Next Dose: Nystatin Topical (nystatin topical 592434 u/gm cream) Next Dose: Nystatin Topical (nystatin topical 313325 u/gm cream) 1 [place] Topically twice a [...] Orders ?No future orders Vital Signs Height 163 cm Weight 102.5 kg BMI 38.58 kg/m2 Blood Pressure 106 mm Hg/73 mm Hg Temperature 97.8 DegF Pulse Rate 106 bpm Respiratory Rate 02 Sat Mode of Delivery 95 %/Room air You can now view a summary of your hospital visit from the comfort of your home through a free online portal called [facility]. [facility] is a website that allows you to securely view your medical information including discharge summary, medications and follow-up visits. ??You can alsosend a secure electronic message to your doctor???s office to request appointments, renew medications or just ask a question. You can enroll at [email or web address] or register during your [...] primary care provider, you may find a [facility] provider by calling [facility] at [phone]. [facility], in keeping with [facility] guidance, no longer requires face masks for staff, patientsor visitors in most situations. Similar to time spent indoors at other locations, there is the chance that you were exposed to respiratory viruses during your time with us (such as flu or COVID-19).? If you develop symptoms concerning for a viral respiratory infection, please seek testing (and treatment if indicated) from your medical provider or home test kit. For information about the plan of care [...] Professional Member Role: PCP Address: Address: [address] [place] [address] Name: Jose Ramirez RN Position: [facility] [...] Member Role: Primary Care Nurse Address: Address: [address] [place], [place] [id number] Clinical & [place] [address]- Name: Parvez Kaba MD Position: [facility] Renal MD Member Role: Lifetime Consulting Physician Address: Address: [address] [place] [address] [facility] [place] [address]- Name: Mirna Paul RN Position: [facility] [...] Villa RN Position: [facility] Hospital Dining Service Worker Member Role: Primary Care Nurse Care Team Related Persons Name: JO-ANN ROMANGROUND MIXERINDRA Address: [address] [place] [address] Name: DEDICATED LOCAL TRUCK DRIVERGREGG Address: home [address] [place] [address] Name: CARLOS PAZ Address: home [address] [place] [address]
--- OUTSIDE RECORDS SUMMARY | 2023-09-19 22:47 | XMS_ITS | Continuity of Care Document ---
Author Name Unknown Organization [facility] Address [address] [place] [address]- Care Team Providers Care Photogrammetry Airplane Pilot Name Role Phone Maribel Marquez NP Primary Care Physician Encounter [facility] Date(s): 08/15/23 - 09/14/23 [facility] Adult [address] [place] [address]- Allergies, Adverse Reactions, Alerts Substance Reaction Severity [...] Vaccine 03/15/79 Recor ded 1Result Comment: [facility] [id number] 2Early/Late Reason: Nursing Judgment Medications Advair Diskus 100 mcg-50 mcg inhalation powder 1, inhalation, Inhalation, 2 times a day, rinse mouth and throat after use, # 3 each, Refills 0, Tot. Refills 0, Maintenance, 08/29/23 13:08:00 EST, Powder, Route to Pharmacy Electronically, [id number], [facility], 163, cm, 08/29/23 12... Start Date: 08/29/23 Stop Date: 11/27/23 Status: Ordered Albuterol (Eqv-Ventolin HFA) 90 mcg/inh inhalation aerosol 2 puffs, Inhalation, Every 6 hours, PRN Wheezing/Shortness of Breath, # 1 each, 5 Refills, Maintenance, 05/22/23 11:32:00 EDT, [facility], Partial fill upon patient request if the prescription is for a schedule II opioid drug., 2 puffs Inhal... Start Date: 05/22/23 Stop Date: 05/22/24 Status: Ordered albuterol CFC free 90 mcg/inh inhalation aerosol 90 mcg, 1, puffs, Inhalation, Every 4 hours, PRN, # 6.7 Gm, Refills 0, Tot. Refills 0, Maintenance,11/16/22 10:33:00 EST, Inhaler, Route to Pharmacy Electronically, [id number], [facility], 163, cm, 11/16/22 9:43:00 EST, Height, [...] 0 Refills, Maintenance, 08/16/23 23:25:00 EDT, Tablet, [facility], Partial [...] 08/16/23 23:29:00 EDT, [facility], [facility] 60 tablet, 1 Refills, Maintenance,02/22/23 10:08:00 EDT, [facility], 146, cm, 02/05/23 20:22:00 EDT, Height, [...] 0 Refills, Maintenance, 11/16/22 10:34:00 EST, Tablet, [facility], Partial fill upon patient request if [...] 0 Refills, Maintenance, 11/16/22 10:34:00 EST, Tablet, [facility], Partial fill upon patient request if [...] 11/16/22 10:34:00 EST, Route to Pharmacy Electronically, [facility], Partial fill upon patient request if [...] 11:34:00 EDT, 05/22/23 11:32:00 EDT, ER Tablet, [facility], Partial fill upon patient request if the prescription is for a radha... Start Date: 05/22/23 Stop Date: 05/29/24 Status: Ordered nicotine 2 mg oral transmucosal lozenge 1 lozenge = 2 mg, By Mouth, Every 2 hours, PRN as needed for smoking cessation, for 6 week(s), # 504 lozenge, 0 Refills, Acute 10/10/23 13:10:00 EST, 08/29/23 13:10:00 EST, [facility], Partial fill upon patient request if the prescription is... Start Date: 08/29/23 Stop Date: 10/10/23 Status: Ordered nystatin topical 464870 u/gm cream 1 application, Topically, 2 times a day, # 15 Gm, 0 Refills, Maintenance, 01/05/23 15:04:00 EDT, Cream, [facility], Partial fill upon patient request if the prescription is for a schedule II opioid drug., 1 application Topically 2 times a da... Start Date: 01/05/23 Status: Ordered nystatin topical 607603 u/gm cream 0 Refills, Maintenance, 01/06/23 18:05:00 [...] 11/16/22 10:34:00 EST, Route to Pharmacy Electronically, [facility], Partial fill upon patient request if [...] Maintenance,11/16/22 10:34:00 EST, Route to Pharmacy Electronically, [facility], Partial fill upon patient request if [...] Team Personnel Name: Ruid Ruiz RN Position: [facility] ED RN W/OE and Tasks Member Role: Primary Care Nurse Name: Alicja Riggs RN Position: [facility] RN Member Role: Primary Care Nurse Name: Ros Fu RN Position: [facility] RN Member Role: Primary Care Nurse Name: Hilda Mccabe RN Position: [facility] RN Member Role: Primary Care Nurse Name: Rosana Kearney RN Position: [facility] SN RN Member Role: Primary Care Nurse Name: Wil Flood RN Position: [facility] RN Member Role: Primary Care Nurse Name: Gagandeep Sheldon RN Position: [facility] RN Member Role: Primary Care Nurse Name: Alba Daily RN Position: [facility] RN Member Role: Primary Care Nurse Name: Maribel Marquez NP Position: [facility] PCO Associate Professional Member Role: PCP Address: Address: [address] [place] [address]- Name: Jose Ramirez RN Position: [facility] RN Member Role: Primary Care Nurse Name: Brittany Butts RN Position: [facility] AMB Nurse Member Role: Primary Care Nurse Name: Pauline Mcadams RN Position: [facility] RN Member Role: Primary Care Nurse Name: Mary Sánchez RN Position: [facility] RN Member Role: Primary Care Nurse Name: Shama Rosado RN Position: [facility] RN Member Role: Primary Care Nurse Name: Jackie Snyder RN Position: [facility] RN Member Role: Primary Care Nurse Name: Jay Burks NP Position: Reference Physician Member Role: Primary Care Nurse Address: Address: [address] [place], [place] [id number] Clinical & [place] [address]- Name: Parvez Kaba MD Position: [facility] Renal MD Member Role: Lifetime Consulting Physician Address: Address: [address] [place] [address] [facility] [place] [address]- Name: Mirna Paul RN Position: [facility] OB RN Member Role: Primary Care Nurse Name: Latonya Rahman RN Position: [facility] Onco RN Member Role: Primary Care Nurse Name: Viki Gonzalez RN Position: [facility] RN Member Role: Primary Care Nurse Name: Claudia Presley RN Position: [facility] RN Member Role: Primary Care Nurse Name: Iris Villa RN Position: [facility] Hospital Care Director Rn Member Role: Primary Care Nurse Care Team Related Persons Name: LISBETH- RESEARCH SUBJECTINDRA Address: [address] [place] [address] Name: HAND GLOVE CLEANERGREGG Address: [address] [place] [address] Name: CARLOS PAZ Address: [address] [place] [address]
--- OUTSIDE RECORDS SUMMARY | 2023-09-19 22:48 | XMS_ITS | Continuity of Care Document ---
Author Name Unknown Organization [facility] Address [address] [place] [address]- Care Team Providers Care Manager Community Outreach Name Role Phone Maribel Marquez NP Primary Care Physician [facility] [facility] Date(s): 08/08/23 - 08/15/23 [facility] Adult [address] [place] [address]- Encounter Diagnosis Type 2 diabetes mellitus(Discharge Diagnosis) - 08/08/23 Depression, major, recurrent, severe with psychosis(Discharge Diagnosis) - 08/08/23 Chronic post-traumatic stress disorder (PTSD)(Discharge Diagnosis) - 08/08/23 Borderline personality disorder(Discharge Diagnosis) - 08/08/23 Suicide attempt(Discharge Diagnosis) - 08/08/23 Hypertension(Discharge Diagnosis) - 08/08/23 Attending Physician: Maribel Marquez NP Allergies, Adverse [...] ded 1Result Comment: [facility] [id number] 2Early/Late Reason: Nursing Judgment Medications Albuterol (Eqv-Ventolin HFA) 90 mcg/inh inhalation aerosol 2 puffs, Inhalation, Every 6 hours, PRN Wheezing/Shortness of Breath, # 1 each, 5 Refills, Maintenance, 05/22/23 11:32:00 EDT, [facility], Partial fill upon patient request if the prescription is for a schedule II opioid drug., 2 puffs Inhal... Start Date: 05/22/23 Stop Date: 05/22/24 Status: Ordered albuterol CFC free 90 mcg/inh inhalation aerosol 90 mcg, 1, puffs, Inhalation, Every 4 hours, PRN, # 6.7 Gm, Refills 0, Tot. Refills 0, Maintenance,11/16/22 10:33:00 EST, Inhaler, Route to Pharmacy Electronically, [id number], [facility], 163, cm, 11/16/22 9:43:00 EST, Height, [...] 0 Refills, Maintenance, 11/16/22 10:33:00 EST, Tablet, [facility], Partial fill upon patient request if [...] 11/16/22 10:34:00 EST, Route to Pharmacy Electronically, [facility], Partial fill upon patient request if the prescription is for a schedule II opioid d... Start Date: 11/16/22 Stop Date: 08/13/23 Status: Ordered FLUoxetine 20 mg oral capsule 80 mg, 4, capsule, By Mouth, Daily in AM, # 120 capsule, Refills 0, Tot. Refills 0, Maintenance, 11/16/22 10:34:00 EST, Route to Pharmacy Electronically, [facility], Partial fill upon patient request if [...] 11/16/22 10:34:00 EST, Route to Pharmacy Electronically, [facility], Partial fill upon patientrequest if the [...] 60 tablet, 1 Refills, Maintenance,02/22/23 10:08:00 EDT, [facility], 146, cm, 02/05/23 20:22:00 EDT, Height, [...] 11:34:00 EDT, 05/22/23 11:32:00 EDT, ER Tablet, [facility], Partial fill upon patient request if the prescription is for a radha... Start Date: 05/22/23 Stop Date: 05/29/24 Status: Ordered nystatin topical 685117 u/gm cream 1 application, Topically, 2 times a day, # 15 Gm, 0 Refills, Maintenance, 01/05/23 15:04:00 EDT, Cream, [facility], Partial fill upon patient request if the prescription is for a schedule II opioid drug., 1 application Topically 2 times a da... Start Date: 01/05/23 Status: Ordered nystatin topical 020932 u/gm cream 0 Refills, Maintenance, 01/06/23 18:05:00 [...] 11/16/22 10:34:00 EST, Route to Pharmacy Electronically, [facility], Partial fill upon patient request if [...] Maintenance,11/16/22 10:34:00 EST, Route to Pharmacy Electronically, [facility], Partial fill upon patient request if [...] Effective Dates Health Status Clinical Service Informant Type 2 diabetes mellitus Discharge Diagnosis 08/08/23 Depression, major, recurrent, severe with psychosis Discharge Diagnosis 08/08/23 Chronic post-traumatic stress disorder (PTSD) Discharge Diagnosis 08/08/23 Borderline personality disorder Discharge Diagnosis 08/08/23 Suicide attempt Discharge Diagnosis 08/08/23 Hypertension Discharge Diagnosis 08/08/23 Vital Signs Most recent to oldest [Reference Range]: 1 Height 163 cm (08/08/23 2:52 PM) Weight 101.2 kg (08/08/23 2:52 PM) Oxygen Saturation [94-100 %] 96 % (08/08/23 2:52 PM) Pulse Rate [55-90 bpm] 92 bpm *H* (08/08/23 2:52 PM) Body Mass Index [18.5-24.99 kg/m2] 38.09 kg/m2 *>HHI* (08/08/23 2:52 PM) Blood Pressure [90-138/55-84 mm Hg] 128/ 80mm Hg (08/08/23 2:52 PM) Temperature [96.8-100.4 DegF] 98.3 DegF (08/08/23 2:52 PM) Mode of Delivery (Oxygen) Room air (08/08/23 2:52 PM) Blood pressure sites Arm, left (08/08/23 2:52 PM) Temperature Route Oral (08/08/23 2:52 PM) Weight Obtained Via Standing scale (08/08/23 2:52 PM) Social History Social History Type Response Smoking Status 10 or more cigarette s (1/2 pack or more)/day in last 30 days; Type: Cigarettes; Other: Reports smoking 1/2-1 packs/day, ending on level of stress; Started at age: 25; entered on: 11/18/22 Sex Note * Brandon Morin: PERFORM, SIGN, VERIFY Event Display: Patient Education/Instruction Authored Date: [id number] [facility] *[facility] Clinical Summary Name IOGR KAUFMAN Age 47 Years 1975 PCP Maribel Marquez NP PCP Visit Date 08/08/2023 14:51:00 Additional Instructions: Scheduled Appointments?? Future Appointments ?No Future Appointments Scheduled Follow-Up Instructions ?? Diagnosis Medications: Please continue your medications until treatment is completed or stopped by your provider. Discuss any questions related to medications with your provider. Medications to Continue with No Changes These [...] tab(s) Oral Daily. Refills: 0. Next Dose: [place]sel[place]ai Dezza (lithium 300 mg oral capsule) 1 capsule [...] 0. Next Dose: Nystatin Topical (nystatin topical 971791 u/gm cream) Next Dose: Nystatin Topical (nystatin topical 580358 u/gm cream) 1 [place] Topically twice a [...] predniSONE; penicillin; lithium;codeine Medications Given This Visit Medication Dose Route influenza virus vaccine, inactivated (influenza virus, inactivated vacc) 0.5 mL Intramuscular Future Orders ?Hemoglobin A1C (Monitoring)? Order Date:08/08/23?- Complete on or after?08/08/23 Vital Signs Height 163 cm Weight 101.2 kg BMI 38.09 kg/m2 Blood Pressure 128 mm Hg/80 mm Hg Temperature 98.3 DegF Pulse Rate 92 bpm Respiratory Rate 02 Sat Mode of Delivery 96 %/Room air You can now view a summary of your hospital visit from the comfort of your home through a free online portal called [employer]ech. Pantech is a website that allows you to securely view your medical information including discharge summary, medications and follow-up visits. ??You can alsosend a secure electronic message to your doctor???s office to request appointments, renew medications or just ask a question. You can enroll at [email or web address] or register during your next office visit. [...] primary care provider, you may find a [facility] provider by calling [facility] Link at [phone]. [facility], in keeping with [facility] guidance, no longer requires face masks [...] VERIFY Event Display: Patient Education/Instruction Authored Date: [id number] [facility] Clinical Summary Name IGOR KAUFMAN Age 47 Years 1975 PCP Maribel Marquez NP PCP Visit Date 08/08/2023 14:51:00 Additional Instructions: 2-3 M HU Scheduled Appointments?? Future Appointments ?No Future Appointments Scheduled Follow-Up Instructions ?? Diagnosis Medications: Please continue your medications until treatment is completed or stopped by your provider. Discuss any questions related to medications with your provider. Medications to Continue with No Changes These [...] tab(s) Oral Daily. Refills: 0. Next Dose: Tselakai Dezza (lithium 300 mg oral capsule) 1 capsule [...] 0. Next Dose: Nystatin Topical (nystatin topical 418839 u/gm cream) Next Dose: Nystatin Topical (nystatin topical 107847 u/gm cream) 1 [place] Topically twice a [...] predniSONE; penicillin; lithium;codeine Medications Given This Visit Medication Dose Route influenza virus vaccine, inactivated (influenza virus, inactivated vacc) 0.5 mL Intramuscular Future Orders ?Hemoglobin A1C (Monitoring)? Order Date:08/08/23?- Complete on or after?08/08/23 Vital Signs Height 163 cm Weight 101.2 kg BMI 38.09 kg/m2 Blood Pressure 128 mm Hg/80 mm Hg Temperature 98.3 DegF Pulse Rate 92 bpm Respiratory Rate 02 Sat Mode of Delivery 96 %/Room air You can now view a summary of your hospital visit from the comfort of your home through a free online portal called [employer]ech. [employer]ech is a website that allows you to securely view your medical information including discharge summary, medications and follow-up visits. ??You can alsosend a secure electronic message to your doctor???s office to request appointments, renew medications or just ask a question. You can enroll at [email or web address] or register during your next office visit. [...] primary care provider, you may find a [facility] provider by calling [facility] Link at [phone]. [facility], in keeping with [facility] guidance, no longer requires face masks [...] Care Nurse Name: Hilda Mccabe RN Position: [facility] RN Member Role: Primary Care Nurse Name: Rosana Kearney RN Position: [facility] SN RN Member Role: Primary Care Nurse Name: Wil Flood RN Position: [facility] RN Member Role: Primary Care Nurse Name: Gagandeep Sheldon RN Position: [facility] RN Member Role: Primary Care Nurse Name: Alba Daily RN Position: [facility] RN Member Role: Primary Care Nurse Name: Maribel Marquez NP Position: [facility] PCO Associate Professional Member Role: PCP Address: Address: [address] [place] [address] [place] Name: Jose Ramirez RN Position: [facility] [...] Member Role: Primary Care Nurse Address: Address: [address] [place], [place] [id number] Clinical & [place] [address]- [place] Name: Parvez Kaba MD Position: [facility] Renal MD Member Role: Lifetime Consulting Physician Address: Address: [address] [place] [address] [facility] [place] [address]- [place] Name: Mirna Paul RN [facility]: [facility] Position: [facility] Hospital Outdoor Fitness Trainer Member Role: Primary Care Nurse Care Team Related Persons Name: LISBETH- PHARMACY CASHIERINDRA Address: [address] [place] [address] Name: RESIDENTIAL CONCIERGEGREGG Address: [address] [place] [address] Name: CARLOS PAZ Address: [address] [place] [address]
--- OUTSIDE RECORDS SUMMARY | 2023-09-19 22:49 | XMS_ITS | Continuity of Care Document ---
Author Name Unknown Organization [facility] Address [address] [place] [address]- Care Team Providers Care Displayer Merchandise Name Role Phone Maribel Marquez NP Primary Care Physician Encounter [facility] Date(s): 08/07/23 - 09/06/23 [facility] [address] [place] [address]- Allergies, Adverse Reactions, Alerts Substance Reaction Severity [...] Virus Vaccine 03/15/79 Recor ded 1Result Comment: [facility] [id number] 2Early/Late Reason: Nursing Judgment Medications Advair Diskus 100 mcg-50 mcg inhalation powder 1, inhalation, Inhalation, 2 times a day, rinse mouth and throat after use, # 3 each, Refills 0, Tot. Refills 0, Maintenance, 08/29/23 13:08:00 EST, Powder, Route to Pharmacy Electronically, [id number], [facility], 163, cm, 08/29/23 12... Start Date: 08/29/23 Stop Date: 11/27/23 Status: Ordered Albuterol (Eqv-Ventolin HFA) 90 mcg/inh inhalation aerosol 2 puffs, Inhalation, Every 6 hours, PRN Wheezing/Shortness of Breath, # 1 each, 5 Refills, Maintenance, 05/22/23 11:32:00 EDT, [facility], Partial fill upon patient request if the prescription is for a schedule II opioid drug., 2 puffs Inhal... Start Date: 05/22/23 Stop Date: 05/22/24 Status: Ordered albuterol CFC free 90 mcg/inh inhalation aerosol 90 mcg, 1, puffs, Inhalation, Every 4 hours, PRN, # 6.7 Gm, Refills 0, Tot. Refills 0, Maintenance,11/16/22 10:33:00 EST, Inhaler, Route to Pharmacy Electronically, [id number], [facility], 163, cm, 11/16/22 9:43:00 EST, Height, [...] 0 Refills, Maintenance, 08/16/23 23:25:00 EDT, Tablet, [facility], Partial [...] 08/16/23 23:29:00 EDT, [facility] [...] 60 tablet, 1 Refills, Maintenance,02/22/23 10:08:00 EDT, [facility], 146, cm, 02/05/23 20:22:00 EDT, Height, [...] 0 Refills, Maintenance, 11/16/22 10:34:00 EST, Tablet, [facility], Partial fill upon patient request if [...] 0 Refills, Maintenance, 11/16/22 10:34:00 EST, Tablet, [facility], Partial fill upon patient request if [...] 11/16/22 10:34:00 EST, Route to Pharmacy Electronically, [facility], Partial fill upon patient request if [...] 11:34:00 EDT, 05/22/23 11:32:00 EDT, ER Tablet, [facility], Partial fill upon patient request if the prescription is for a radha... Start Date: 05/22/23 Stop Date: 05/29/24 Status: Ordered nicotine 2 mg oral transmucosal lozenge 1 lozenge = 2 mg, By Mouth, Every 2 hours, PRN as needed for smoking cessation, for 6 week(s), # 504 lozenge, 0 Refills, Acute 10/10/23 13:10:00 EST, 08/29/23 13:10:00 EST, [facility], Partial fill upon patient request if the prescription is... Start Date: 08/29/23 Stop Date: 10/10/23 Status: Ordered nystatin topical 434180 u/gm cream 1 application, Topically, 2 times a day, # 15 Gm, 0 Refills, Maintenance, 01/05/23 15:04:00 EDT, Cream, [facility], Partial fill upon patient request if the prescription is for a schedule II opioid drug., 1 application Topically 2 times a da... Start Date: 01/05/23 Status: Ordered nystatin topical 480564 u/gm cream 0 Refills, Maintenance, 01/06/23 18:05:00 [...] 11/16/22 10:34:00 EST, Route to Pharmacy Electronically, [facility], Partial fill upon patient request if [...] Maintenance,11/16/22 10:34:00 EST, Route to Pharmacy Electronically, [facility], Partial fill upon patient request if [...] Personnel Name: Rudi Ruiz RN Position: [facility] ED RN W/OE and Tasks Member Role: Primary Care Nurse Name: Alicja Riggs RN Position: [facility] RN Member Role: Primary Care Nurse Name: Ros Fu RN Position: [facility] RN Member Role: Primary Care Nurse Name: Hilda Mccabe RN Position: [facility] RN Member Role: Primary Care Nurse Name: Rosana Kearney RN Position: [facility] SN RN Member Role: Primary Care Nurse Name: Wil Flood RN Position: [facility] RN Member Role: Primary Care Nurse Name: Gagandeep Sheldon RN Position: [facility] RN Member Role: Primary Care Nurse Name: Alba Daily RN Position: [facility] RN Member Role: Primary Care Nurse Name: Maribel Marquez NP Position: [facility] PCO Associate Professional Member Role: PCP Address: Address: [address] [place] [address]- Name: Jose Ramirez RN Position: [facility] RN Member Role: Primary Care Nurse Name: Brittany Butts RN Position: [facility] AMB Nurse Member Role: Primary Care Nurse Name: Pauline Mcadams RN Position: [facility] RN Member Role: Primary Care Nurse Name: Mary Sánchez RN Position: [facility] RN Member Role: Primary Care Nurse Name: Shama Rosado RN Position: [facility] RN Member Role: Primary Care Nurse Name: Jackie Snyder RN Position: [facility] RN Member Role: Primary Care Nurse Name: Jay Burks NP Position: Reference Physician Member Role: Primary Care Nurse Address: Address: [address] [place], [place] [id number] Clinical & [place] [address]- Name: Parvez Kaba MD Position: [facility] Renal MD Member Role: Lifetime Consulting Physician Address: Address: [address] [place] [address] [facility] [place] [address]- Name: Mirna Paul RN Position: [facility] OB RN Member Role: Primary Care Nurse Name: Latonya Rahman RN Position: [facility] Onco RN Member Role: Primary Care Nurse Name: Viki Gonzalez RN Position: [facility] RN Member Role: Primary Care Nurse Name: Claudia Presley RN Position: [facility] RN Member Role: Primary Care Nurse Name: Iris Villa RN Position: [facility] Hospital Senior Animator Member Role: Primary Care Nurse Care Team Related Persons Name: LISBETH- ELECTRICIAN ELEVATOR MAINTENANCEINDRA Address: [address] [place] [address] Name: MATTRESS AND BOXSPRINGS SUPERVISORGREGG Address: [address] [place] [address] Name: CARLOS PAZ Address: [address] [place] [address]
--- OUTSIDE RECORDS SUMMARY | 2023-09-19 22:49 | XMS_ITS | Continuity of Care Document ---
Author Name Unknown Organization [facility] Adult Address [address] [place] [address]- Care Team Providers Care Copy And Print Associate Name Role Phone Maribel Marquez NP Primary Care Physician Encounter [facility] [place] Date(s): 07/09/23 - 08/08/23 [facility] Adult [address] [place] [id number]- Allergies, Adverse Reactions, Alerts Substance Reaction Severity Status codeine Active lithium 1 Active penicillin Active sulfa drugs Active Seafood Active predniSONE Active Macrobid Active Zithromax Active [...] Recor ded 1Result Comment: [facility] [id number] 2Early/Late Reason: Nursing Judgment Medications Albuterol (Eqv-Ventolin HFA) 90 mcg/inh inhalation aerosol 2 puffs, Inhalation, Every 6 hours, PRN Wheezing/Shortness of Breath, # 1 each, 5 Refills, Maintenance, 05/22/23 11:32:00 EDT, [facility], Partial fill upon patient request if the prescription is for a schedule II opioid drug., 2 puffs Inhal... Start Date: 05/22/23 Stop Date: 05/22/24 Status: Ordered albuterol CFC free 90 mcg/inh inhalation aerosol 90 mcg, 1, puffs, Inhalation, Every 4 hours, PRN, # 6.7 Gm, Refills 0, Tot. Refills 0, Maintenance,11/16/22 10:33:00 EST, Inhaler, Route to Pharmacy Electronically, [id number]_[id number], [facility], 163, cm, 11/16/22 9:43:00 EST, Height, 97.3,... Start Date: 11/16/22 Status: Ordered atorvastatin 10 mg oral tablet 1 tablet = 10 mg, By Mouth, Daily at bedtime, # 30 tablet, 0 Refills, Maintenance, 11/16/22 10:33:00 EST, Tablet, [facility], Partial fill [...] 0 Refills, Maintenance, 11/16/22 10:33:00 EST, Tablet, [facility], Partial fill upon patient request if [...] 11/16/22 10:34:00 EST, Route to Pharmacy Electronically, [facility], Partial fill upon patient request if the prescription is for a schedule II opioid d... Start Date: 11/16/22 Stop Date: 08/13/23 Status: Ordered FLUoxetine 20 mg oral capsule 80 mg, 4, capsule, By Mouth, Daily in AM, # 120 capsule, Refills 0, Tot. Refills 0, Maintenance, 11/16/22 10:34:00 EST, Route to Pharmacy Electronically, [facility], Partial fill upon patient request if [...] 60 tablet, 1 Refills, Maintenance,02/22/23 10:08:00 EDT, [facility], 146, cm, 02/05/23 20:22:00 EDT, Height, [...] 0 Refills, Maintenance, 11/16/22 10:34:00 EST, Tablet, [facility], Partial fill upon patient request if [...] 0 Refills, Maintenance, 11/16/22 10:34:00 EST, Tablet, [facility], Partial fill upon patient request if [...] 11:34:00 EDT, 05/22/23 11:32:00 EDT, ER Tablet, [facility], Partial fill upon patient request if the prescription is for a radha... Start Date: 05/22/23 Stop Date: 05/29/24 Status: Ordered nystatin topical 275458 u/gm cream 1 application, Topically, 2 times a day, # 15 Gm, 0 Refills, Maintenance, 01/05/23 15:04:00 EDT, Cream, [facility], Partial fill upon patient request if the prescription is for a schedule II opioid drug., 1 application Topically 2 times a da... Start Date: 01/05/23 Status: Ordered nystatin topical 151289 u/gm cream 0 Refills, Maintenance, 01/06/23 18:05:00 [...] 11/16/22 10:34:00 EST, Route to Pharmacy Electronically, [facility], Partial fill upon patient request if [...] Maintenance,11/16/22 10:34:00 EST, Route to Pharmacy Electronically, [facility], Partial fill upon patient request if [...] Team Personnel Name: Rudi Ruiz RN Position: [facility] ED RN W/OE and Tasks Member Role: Primary Care Nurse Name: Alicja Riggs RN Position: [facility] RN Member Role: Primary Care Nurse Name: Ros Fu RN Position: [facility] RN Member Role: Primary Care Nurse Name: Hilda Mccabe RN Position: [facility] RN Member Role: Primary Care Nurse Name: Rosana Kearney RN Position: [facility] SN RN Member Role: Primary Care Nurse Name: Wil Flood RN Position: [facility] RN Member Role: Primary Care Nurse Name: Gagandeep Sheldon RN Position: [facility] RN Member Role: Primary Care Nurse Name: Alba Daily RN Position: [facility] RN Member Role: Primary Care Nurse Name: Maribel Marquez NP Position: [facility] PCO Associate Professional Member Role: PCP Address: Address: [address] [place] [address]- [place] Name: Jose Ramirez RN Position: [facility] RN Member Role: Primary Care Nurse Name: Brittany Butts RN Position: [facility] AMB Nurse Member Role: Primary Care Nurse Name: Pauline Mcadams RN Position: [facility] RN Member Role: Primary Care Nurse Name: Mary Sánchez RN Position: [facility] RN Member Role: Primary Care Nurse Name: Shama Rosado RN Position: [facility] RN Member Role: Primary Care Nurse Name: Jackie Snyder RN Position: [facility] RN Member Role: Primary Care Nurse Name: Jay Burks NP Position: Reference Physician Member Role: Primary Care Nurse Address: Address: [address] [place], [place] [id number] Clinical & [place] [address]- [place] Name: Parvez Kaba MD Position: [facility] Renal MD Member Role: Lifetime Consulting Physician Address: Address: [address] [place] [address] [facility] [place] [address]- [place] Name: Mirna Paul RN Position: [facility] OB RN Member Role: Primary Care Nurse Name: Latonya Rahman RN Position: [facility] Onco RN Member Role: Primary Care Nurse Name: Viki Gonzalez RN Position: [facility] RN Member Role: Primary Care Nurse Name: Claudia Presley RN Position: [facility] RN Member Role: Primary Care Nurse Name: Iris Villa RN Position: [facility] Hospital Data Analytics Architect Member Role: Primary Care Nurse Care Team Related Persons Name: JO-ANN ROMANELECTRICAL ENGINEERING DRAFTING OFFICERINDRA Address: [address] [place] [address] Name: JURY CONSULTANTGREGG Address: [address] [place] [address] Name: CARLOS PAZ Address: [address] [place] [address]
--- OUTSIDE RECORDS SUMMARY | 2023-09-19 22:50 | XMS_ITS | Continuity of Care Document ---
Author Name Unknown Organization [facility] Adult Address [address] [place] [address]- Care Team Providers Care Wire Coiner Name Role Phone Maribel Marquez NP Primary Care Physician [place] [facility] [place] 07/25/23 - 08/24/23 [facility] Adult [address] [place] [address]- Allergies, Adverse Reactions, Alerts Substance Reaction Severity [...] Virus Vaccine 03/15/79 Recor ded 1Result Comment: [facility] [id number] 2Early/Late Reason: Nursing Judgment Medications Albuterol (Eqv-Ventolin HFA) 90 mcg/inh inhalation aerosol 2 puffs, Inhalation, Every 6 hours, PRN Wheezing/Shortness of Breath, # 1 each, 5 Refills, Maintenance, 05/22/23 11:32:00 EDT, [facility], Partial fill upon patient request if the prescription is for a schedule II opioid drug., 2 puffs Inhal... Start Date: 05/22/23 Stop Date: 05/22/24 Status: Ordered albuterol CFC free 90 mcg/inh inhalation aerosol 90 mcg, 1, puffs, Inhalation, Every 4 hours, PRN, # 6.7 Gm, Refills 0, Tot. Refills 0, Maintenance,11/16/22 10:33:00 EST, Inhaler, Route to Pharmacy Electronically, NCPDP_[id number], [facility], 163, cm, 11/16/22 9:43:00 EST, Height, [...] 0 Refills, Maintenance, 11/16/22 10:33:00 EST, Tablet, [facility], Partial fill upon patient request if [...] 0 Refills, Maintenance, 08/16/23 23:25:00 EDT, Tablet, [facility], Partial fill upon patient request if [...] 11/16/22 10:34:00 EST, Route to Pharmacy Electronically, [facility], Partial fill upon patient request if [...] 11/16/22 10:34:00 EST, Route to Pharmacy Electronically, [facility], Partial fill upon patientrequest if the [...] 08/16/23 23:29:00 EDT, Route to Pharmacy Electronically, [facility], Partial fill upon patient request if [...] 02/12/23 10:51:00 EDT, Route to Pharmacy Electronically, [facility], Partial fill upon patient requestif the [...] 60 tablet, 1 Refills, Maintenance,02/22/23 10:08:00 EDT, [facility], 146, cm, 02/05/23 20:22:00 EDT, Height, [...] 0 Refills, Maintenance, 11/16/22 10:34:00 EST, Tablet, [facility], Partial fill upon patient request if [...] 0 Refills, Maintenance, 11/16/22 10:34:00 EST, Tablet, [facility], Partial fill upon patient request if [...] 11/16/22 10:34:00 EST, Route to Pharmacy Electronically, [facility], Partial fill upon patient request if [...] 11:34:00 EDT, 05/22/23 11:32:00 EDT, ER Tablet, [facility], Partial fill upon patient request if the prescription is for a radha... Start Date: 05/22/23 Stop Date: 05/29/24 Status: Ordered nystatin topical 088019 u/gm cream 1 application, Topically, 2 times a day, # 15 Gm, 0 Refills, Maintenance, 01/05/23 15:04:00 EDT, Cream, [facility], Partial fill upon patient request if the prescription is for a schedule II opioid drug., 1 application Topically 2 times a da... Start Date: 01/05/23 Status: Ordered nystatin topical 510400 u/gm cream 0 Refills, Maintenance, 01/06/23 18:05:00 [...] 11/16/22 10:34:00 EST, Route to Pharmacy Electronically, [facility], Partial fill upon patient request if [...] Maintenance,11/16/22 10:34:00 EST, Route to Pharmacy Electronically, [facility], Partial fill upon patient request if [...] Associate Professional Member Role: PCP Address: Address: [address] [place] [address]- Name: Jose Ramirez RN Position: [facility] [...] Role: Primary Care Nurse Address: Address: [address] [place], [place] [phone] Clinical & [place] [address]- [place] Name: Parvez Kaba MD Position: [facility] Renal MD Member Role: Lifetime Consulting Physician Address: Address: [address] [place] [address] [facility] [place] [address]- Name: Mirna Paul RN Position: [facility] [...] Position: [facility] Hospital Ring Attacher Member Role: Primary Care Nurse Care Team Related Persons Name: JO-ANN ROMANHARBORMASTERINDRA Address: [address] [place] [address] Name: FUEL TANK SEALER AND TESTERGREGG Address: [address] [place] [address] Name: CARLOS PAZ Address: [address] [place] [address]
--- OUTSIDE RECORDS SUMMARY | 2023-09-19 22:51 | XMS_ITS | Continuity of Care Document ---
Author Name Unknown Organization [facility] Adult Address [address] [place] [address]- Care Team Providers Care Garage Door Service Technician Name Role Phone Maribel Marquez NP Primary Care Physician [phone] [place] [facility] [place]23 [place] 08/19/23 [facility] Adult [address] [place] [address]- Allergies, Adverse Reactions, Alerts Substance Reaction Severity [...] ded 1Result Comment: [facility] [id number] 2Early/Late Reason: Nursing Judgment Medications Albuterol (Eqv-Ventolin HFA) 90 mcg/inh inhalation aerosol 2 puffs, Inhalation, Every 6 hours, PRN Wheezing/Shortness of Breath, # 1 each, 5 Refills, Maintenance, 05/22/23 11:32:00 EDT, [facility], Partial fill upon patient request if the prescription is for a schedule II opioid drug., 2 puffs Inhal... Start Date: 05/22/23 Stop Date: 05/22/24 Status: Ordered albuterol CFC free 90 mcg/inh inhalation aerosol 90 mcg, 1, puffs, Inhalation, Every 4 hours, PRN, # 6.7 Gm, Refills 0, Tot. Refills 0, Maintenance,11/16/22 10:33:00 EST, Inhaler, Route to Pharmacy Electronically, NCPDP_[id number], [facility], 163, cm, 11/16/22 9:43:00 EST, Height, [...] 0 Refills, Maintenance, 11/16/22 10:33:00 EST, Tablet, [facility], Partial fill upon patient request if [...] 0 Refills, Maintenance, 08/16/23 23:25:00 EDT, Tablet, [facility], Partial fill upon patient request if [...] 11/16/22 10:34:00 EST, Route to Pharmacy Electronically, [facility], Partial fill upon patient request if [...] 11/16/22 10:34:00 EST, Route to Pharmacy Electronically, [facility], Partial fill upon patientrequest if the [...] 08/16/23 23:29:00 EDT, Route to Pharmacy Electronically, [facility], Partial fill upon patient request if [...] 02/12/23 10:51:00 EDT, Route to Pharmacy Electronically, [facility], Partial fill upon patient requestif the [...] 60 tablet, 1 Refills, Maintenance,02/22/23 10:08:00 EDT, [facility], 146, cm, 02/05/23 20:22:00 EDT, Height, [...] 0 Refills, Maintenance, 11/16/22 10:34:00 EST, Tablet, [facility], Partial fill upon patient request if [...] 0 Refills, Maintenance, 11/16/22 10:34:00 EST, Tablet, [facility], Partial fill upon patient request if [...] 11/16/22 10:34:00 EST, Route to Pharmacy Electronically, [facility], Partial fill upon patient request if [...] 11:34:00 EDT, 05/22/23 11:32:00 EDT, ER Tablet, [facility], Partial fill upon patient request if the prescription is for a radha... Start Date: 05/22/23 Stop Date: 05/29/24 Status: Ordered nystatin topical 084921 u/gm cream 1 application, Topically, 2 times a day, # 15 Gm, 0 Refills, Maintenance, 01/05/23 15:04:00 EDT, Cream, [facility], Partial fill upon patient request if the prescription is for a schedule II opioid drug., 1 application Topically 2 times a da... Start Date: 01/05/23 Status: Ordered nystatin topical 543249 u/gm cream 0 Refills, Maintenance, 01/06/23 18:05:00 [...] 11/16/22 10:34:00 EST, Route to Pharmacy Electronically, [facility], Partial fill upon patient request if [...] Maintenance,11/16/22 10:34:00 EST, Route to Pharmacy Electronically, [facility], Partial fill upon patient request if [...] Care Nurse Name: Alba Daily RN Position: [facility] RN Member Role: Primary Care Nurse Name: Maribel Marquez NP Position: [facility] PCO Associate Professional Member Role: PCP Address: Address: [address] [place] [phone]- Name: Jose Ramirez RN Position: [facility] [...] Role: Primary Care Nurse Address: Address: [address] [place], [place] [phone] Clinical & [place] [address]- [place] Name: Parvez Kaba MD Position: [facility] Renal MD Member Role: Lifetime Consulting Physician Address: Address: [address] [place] [address] [facility] [place] [address]- Name: Mirna Paul RN Position: [facility] OB RN Member Role: Primary Care Nurse Name: Latonya Rahman RN Position: [facility] Onco RN Member Role: Primary Care Nurse Name: Viki Gonzalez RN Position: [facility] RN Member Role: Primary Care Nurse Name: Claudia Preslye RN Position: [facility] RN Member Role: Primary Care Nurse Name: Iris Villa RN Position: [facility] Hospital Supervisor Byproducts Member Role: Primary Care Nurse Care Team Related Persons Name: JO-ANN ROMANGAS PLANT TECHNICIANINDRA Address: [address] [place] [address] Name: RETAIL LOAN ORIGINATORGREGG Address: [address] [place] [address] Name: CARLOS PAZ Address: [address] [place] [address]
--- OUTSIDE RECORDS SUMMARY | 2023-09-19 22:52 | XMS_ITS | Continuity of Care Document ---
Author Name Unknown Organization [facility] Adult Address [address] [place] [address]- Care Team Providers Care Pastry Finisher Name Role Phone Maribel Marquez NP Primary Care Physician Encounter [facility] Date(s): 08/09/23 - 09/08/23 [facility] Adult [address] [place] [address]- Allergies, Adverse Reactions, Alerts Substance Reaction Severity [...] Virus Vaccine 03/15/79 Recor ded 1Result Comment: [facility] [id number] 2Early/Late Reason: Nursing Judgment Medications Advair Diskus 100 mcg-50 mcg inhalation powder 1, inhalation, Inhalation, 2 times a day, rinse mouth and throat after use, # 3 each, Refills 0, Tot. Refills 0, Maintenance, 08/29/23 13:08:00 EST, Powder, Route to Pharmacy Electronically, NCPDP_[id number], [facility], 163, cm, 08/29/23 12... Start Date: [...] 10:33:00 EST, Inhaler, Route to Pharmacy Electronically, FLPDP_[id number], [facility], 163, cm, 11/16/22 9:43:00 EST, Height, [...] 60 tablet, 1 Refills, Maintenance,02/22/23 10:08:00 EDT, [facility], 146, cm, 02/05/23 20:22:00 EDT, Height, [...] 0 Refills, Maintenance, 11/16/22 10:34:00 EST, Tablet, [facility], Partial fill upon patient request if [...] 0 Refills, Maintenance, 11/16/22 10:34:00 EST, Tablet, [facility], Partial fill upon patient request if [...] 11/16/22 10:34:00 EST, Route to Pharmacy Electronically, [facility], Partial fill upon patient request if [...] 11:34:00 EDT, 05/22/23 11:32:00 EDT, ER Tablet, [facility], Partial fill upon patient request if the prescription is for a radha... Start Date: 05/22/23 Stop Date: 05/29/24 Status: Ordered nicotine 2 mg oral transmucosal lozenge 1 lozenge = 2 mg, By Mouth, Every 2 hours, PRN as needed for smoking cessation, for 6 week(s), # 504 lozenge, 0 Refills, Acute 10/10/23 13:10:00 EST, 08/29/23 13:10:00 EST, [facility], Partial fill upon patient request if the prescription is... Start Date: 08/29/23 Stop Date: 10/10/23 Status: Ordered nystatin topical 694153 u/gm cream 1 application, Topically, 2 times a day, # 15 Gm, 0 Refills, Maintenance, 01/05/23 15:04:00 EDT, Cream, [facility], Partial fill upon patient request if the prescription is for a schedule II opioid drug., 1 application Topically 2 times a da... Start Date: 01/05/23 Status: Ordered nystatin topical 142906 u/gm cream 0 Refills, Maintenance, 01/06/23 18:05:00 [...] 11/16/22 10:34:00 EST, Route to Pharmacy Electronically, [facility], Partial fill upon patient request if [...] Maintenance,11/16/22 10:34:00 EST, Route to Pharmacy Electronically, [facility], Partial fill upon patient request if [...] Team Personnel Name: Rudi Ruiz RN Position: [facility] ED RN W/OE and Tasks Member Role: Primary Care Nurse Name: Alicja Riggs RN Position: [facility] RN Member Role: Primary Care Nurse Name: Ros Fu RN Position: [facility] RN Member Role: Primary Care Nurse Name: Hilda Mccabe RN Position: [facility] RN Member Role: Primary Care Nurse Name: Rosana Kearney RN Position: [facility] SN RN Member Role: Primary Care Nurse Name: Wil Flood RN Position: [facility] RN Member Role: Primary Care Nurse Name: Gagandeep Sheldon RN Position: [facility] RN Member Role: Primary Care Nurse Name: Alba Daily RN Position: [facility] RN Member Role: Primary Care Nurse Name: Maribel Marquez NP Position: [facility] PCO Associate Professional Member Role: PCP Address: Address: [address] [place] [address]- Name: Jose Ramirez RN Position: [facility] RN Member Role: Primary Care Nurse Name: Brittany Butts RN Position: [facility] AMB Nurse Member Role: Primary Care Nurse Name: Pauline Mcadams RN Position: [facility] RN Member Role: Primary Care Nurse Name: Mary Sánchez RN Position: [facility] RN Member Role: Primary Care Nurse Name: Shama Rosado RN Position: [facility] RN Member Role: Primary Care Nurse Name: Jackie Snyder RN Position: [facility] RN Member Role: Primary Care Nurse Name: Jay Burks NP Position: Reference Physician Member Role: Primary Care Nurse Address: Address: [address] [place], [place] [phone] Clinical & [place] [address]- Name: Parvez Kaba MD Position: [facility] Renal MD Member Role: Lifetime Consulting Physician Address: Address: [address] [address] [facility] [place] [address]- Name: Mirna Paul RN Position: [facility] OB RN Member Role: Primary Care Nurse Name: Latonya Rahman RN Position: [facility] Onco RN Member Role: Primary Care Nurse Name: Viki Gonzalez RN Position: [facility] RN Member Role: Primary Care Nurse Name: Claudia Presley RN Position: [facility] RN Member Role: Primary Care Nurse Name: Iris Villa RN Position: [facility] Hospital Dust Control Engineer Member Role: Primary Care Nurse Care Team Related Persons Name: LISBETH- AUTO FLEET MAINTENANCE MANAGERINDRA Address: [address] [place] [address] Name: JOINT SPECIAL OPERATIONSGREGG Address: [address] [place] [address] Name: CARLOS PAZ Address: [address] [place] [address]
--- OUTSIDE RECORDS SUMMARY | 2023-09-19 22:52 | XMS_ITS | Continuity of Care Document ---
Author Name Unknown Organization [facility] ter Address [address] [place] [id number]- Care Team Providers Care Scrap Charger Name Role Phone Maribel Marquez NP Primary Care Physician Encounter [facility] Date(s): 08/16/23 - 08/17/[address] [address]- Encounter Diagnosis Gastritis(Final) - 08/16/23 Discharge Disposition: A-D/C Home Attending Physician: Darryl [...] Comment: [facility] [phone] 2Early/Late Reason: Nursing Judgment Medications Acetaminophen Tablet 975 mg, Tablet, By Mouth, Once, STAT, 08/16/23 20:29:00 EDT, Stop date 08/16/23 20:29:00 EDT Start Date: 08/16/23 Stop Date: 08/16/23 Status: Completed Albuterol (Eqv-Ventolin HFA) 90 mcg/inh inhalation aerosol 2 puffs, Inhalation, Every 6 hours, PRN Wheezing/Shortness of Breath, # 1 each, 5 Refills, Maintenance, 05/22/23 11:32:00 EDT, [facility], Partial fill upon patient request if the prescription is for a schedule II opioid drug., 2 puffs Inhal... Start Date: 05/22/23 Stop Date: 05/22/24 Status: Ordered albuterol CFC free 90 mcg/inh inhalation aerosol 90 mcg, 1, puffs, Inhalation, Every 4 hours, PRN, # 6.7 Gm, Refills 0, Tot. Refills 0, Maintenance,11/16/22 10:33:00 EST, Inhaler, Route to Pharmacy Electronically, [id number], [facility], 163, cm, 11/16/22 9:43:00 EST, Height, [...] 0 Refills, Maintenance, 11/16/22 10:33:00 EST, Tablet, [facility], Partial fill upon patient request if [...] 0 Refills, Maintenance, 08/16/23 23:25:00 EDT, Tablet, [facility], Partial fill upon patient request if the prescription is for a schedule II opioid drug., 163 cm, 08/08/23 14:52:00 ED... Start Date: 08/16/23 Status: Ordered ferrous sulfate 325 mg oral enteric coated tablet 325 mg, 1, tablet, By Mouth, Daily, # 90 tablet, Refills 2, Tot. Refills 2, Maintenance, 11/16/22 10:34:00 EST, Route to Pharmacy Electronically, [facility], Partial fill upon patient request if [...] 08/16/23 23:29:00 EDT, [facility] 60 tablet, 1 Refills, Maintenance,02/22/23 10:08:00 EDT, [facility], 146, cm, 02/05/23 20:22:00 EDT, Height, [...] 0 Refills, Maintenance, 11/16/22 10:34:00 EST, Tablet, [facility], Partial fill upon patient request if [...] 0 Refills, Maintenance, 11/16/22 10:34:00 EST, Tablet, [facility], Partial fill upon patient request if [...] 11/16/22 10:34:00 EST, Route to Pharmacy Electronically, [facility], Partial fill upon patient request if [...] 11:34:00 EDT, 05/22/23 11:32:00 EDT, ER Tablet, [facility], Partial fill upon patient request if the prescription is for a radha... Start Date: 05/22/23 Stop Date: 05/29/24 Status: Ordered nystatin topical 191008 u/gm cream 1 application, Topically, 2 times a day, # 15 Gm, 0 Refills, Maintenance, 01/05/23 15:04:00 EDT, Cream, [facility], Partial fill upon patient request if the prescription is for a schedule II opioid drug., 1 application Topically 2 times a da... Start Date: 01/05/23 Status: Ordered nystatin topical 298800 u/gm cream 0 Refills, Maintenance, 01/06/23 18:05:00 [...] 11/16/22 10:34:00 EST, Route to Pharmacy Electronically, [facility], Partial fill upon patient request if [...] Maintenance,11/16/22 10:34:00 EST, Route to Pharmacy Electronically, [facility], Partial fill upon patient request if [...] Exam Date Time Procedure Performing Provider Status 08/16/23 9:29 PM Chest 2 Views Frontal and Lat Carrillo Schaffer; Auth (Verified) Notes: (Chest 2 Views Frontal and Lat) Reason For Exam: Shortness of Breath RESULT: Chest 2 Views Frontal and Lat Chest 2 Views Frontal and Lat Reason: Shortness of Breath; Clinical Question(s): CHF COMPARISON: 05/05/2023 FINDINGS: LINES AND TUBES: None. LUNGS AND PLEURA: Clear lungs. Normal pulmonary vascularity. No pleural effusion. No pneumothorax. HEART, MEDIASTINUM AND HENRY: Heart is normal in size. Normal mediastinal and hilar contour. BONES AND SOFT TISSUES: No acute abnormality. IMPRESSION: No acute abnormality. WSN: [id number] Ordering Physician: Stephanie Sierra Dictated By: Mauro Childs MD Dictated Date/Time: 08/16/23 10:23 p Reviewed By: Mauro Childs MD Signed By: Mauro Childs MD Signed Date/Time: 08/16/23 10:23 pm Transcribed By: DAVIS Transcribed Date/Time: 08/16/23 10:22 pm Vital Signs Most recent to oldest [Reference Range]: 1 2 3 Oxygen Saturation [94-100 %] 100 % (08/16/23 11: PM) 99 % (08/16/23 8:27 PM) Pulse Rate [55-90 bpm] 85 bpm (08/16/23 11:03 PM) 87 bpm (08/16/23 8:27 PM) Blood Pressure [90-138/55-84 mm Hg] 145/80mm Hg *H* (08/16/23 11: PM) 150/93mm Hg *H* (08/16/23 8:27 PM) Respiratory Rate [16-30 br/min] 18 br/min (08/16/23 11:03 PM) 18 br/min (08/16/23 10:04 PM) 18 br/min (08/16/23 8:27 PM) Temperature [96.8-100.4 DegF] 98.5 DegF (08/16/23 8:27 PM) Mode of Delivery (Oxygen) Room air (08/16/23 11:03 PM) Room air (08/16/23 8:27 PM) Blood pressure sites Arm, left (08/16/23 11:03 PM) Arm, left (08/16/23 8:27 PM) Temperature Route Oral (08/16/23 8:27 PM) Social History Social History Type Response Smoking Status 10 or more cigarette s (1/2 pack or more)/day in last 30 days; Type: Cigarettes; Other: Reports smoking 1/2-1 packs/day, ending on level of stress; Started at age: 25; entered on: 11/18/22 Sex Note * Stephanie Sierra MD: PERFORM Event Display: Patient Education Leaflets Authored Date: [id number] Gastritis (Adult) ?? [id number] Gastritis (Adult) Gastritis is??inflammation and??irritation of the stomach lining. You can have it for a short time (acute) or it can be long lasting (chronic). Infection with bacteria called??H. pylori most often causes gastritis.??More than 1 out of 3 people in the [place] have these bacteria in their bodies. In many cases,??H. pylori??causes no problems or symptoms. But in some people, the infection irritates thestomach lining and causes gastritis. H. pylori may be diagnosed through blood, stool, or breath tests, or by a biopsy during an endoscopy. Other causes of stomach irritation include drinking alcohol,smoking or chewing tobacco, or taking pain-relieving medicines called nonsteroidal anti-inflammatory drugs (NSAIDs), such as aspirin or ibuprofen. Some illegal drugs (such as cocaine) and immune conditions can also cause gastritis. Symptoms of gastritis can include: ??? Belly pain or bloating ??? Feeling full quickly ??? Loss of appetite ??? Weight loss ??? Nauseaor vomiting ??? Vomiting blood or having black stools ??? Feeling more tired than normal An inflamed and irritated stomach lining is more likely to develop a sore called an ulcer. To help prevent this, gastritis should be evaluated and treated as soon as symptoms occur. Home care If needed, your healthcare provider may prescribe medicines. If you have??H. pylori??infection, treating it will likely ease your symptoms. Other changes can help reduce stomach irritation and help it heal. ??? Take prescription medicines as directed. If you have been prescribed medicines for??H. pylori??infection, take them as directed. Take all of the medicine until it's finished or until your provider tells you to stop taking it, even if you start to feel better. ??? Follow your healthcare provider's advice on NSAIDs. Your provider may advise you not to take NSAIDs such as ibuprofen. If you take daily aspirin for your heart or other health reasons, don't stop without talking with your provider first. ??? Don't drink alcohol. If you need help stopping your use of alcohol, ask your provider for treatment resources. ??? Stop smoking. Smoking can irritate the stomach and delay healing. As much as possible, stay away from secondhand smoke. If you smoke and have trouble stopping, ask your provider for help. ?? Follow-up care Follow up with your healthcare provider, or as advised. You may need testing to check for inflammation or an ulcer. ?? When to get medical advice Call your healthcare provider if any of the following occur: ??? Stomach pain that gets worse or moves to the lower right belly (appendix area) ??? Chest pain that suddenly appears or gets worse, or spreads to the back, neck, shoulder, or arm ??? Frequent vomiting (can???t keep down liquids) ??? Blood in the stool or vomit (red or black in color) ??? Feeling weak or dizzy ??? Shortness of breath ??? Unexplained weight loss ??? Fever of 100.4??F (38??C) or higher, or as directed by your healthcare provider ??? Symptoms that get worse, or new symptoms ?? Last Reviewed Date: 2022 ?? [id number] [employer]. All rights reserved. This information is not intended as a substitute for professional medical care. Always follow your healthcare professional's instructions. ?? * Rigo LE, Stephanie: PERFORM Event Display: Patient Education Leaflets Authored Date: [id number] Noncardiac Chest Pain ?? [id number] Noncardiac Chest Pain In most cases, people who come to the emergency room with chest pain don???t have a problem with their heart. Instead, the pain is caused by other conditions. It's important for the healthcare team to be sure you are not having a life-threatening cause for chest pain such as: ??? Heart attack ??? Blood clot in the lungs ??? Collapsed lung ??? Ruptured esophagus ??? Tearing of the aorta Once these major causes have been ruled out, you may have further evaluation for other causes of chest pain. These may be problems with the lungs, muscles, bones, digestive tract, nerves, or mental health. They include: ??? Inflammation around the lungs (pleurisy) ??? Collapsed lung (pneumothorax) ??? Lung inflammation (pleuritis or pneumonitis) ??? Fluid around the lung (pleural effusion) ??? Lung cancer (rare cause of chest pain) ??? Inflamed cartilage between the ribs (costochondritis) ??? Fibromyalgia ??? Rheumatoid arthritis ??? Chest wall strain ??? Reflux ??? Stomach ulcer ??? Spasms of the esophagus ??? Gall stones ??? Gallbladder inflammation ??? Panic or anxiety attacks ??? Emotional distress Your pain doesn???t seem to be coming from your heart. But sometimes the signs of a serious problemtake more time to appear. Continue to watch for the warning signs listed below. Home care Follow these guidelines when caring for yourself at home: ??? Rest today and don't do any strenuousactivity. ??? Take any prescribed medicine as directed. ?? Follow-up care Follow up with your healthcare provider as advised. ?? Call 911 Call 911 if any of these occur: ??? A change in the type of pain: if it feels different, becomes more severe, lasts longer, or begins to spread into your shoulder, arm, neck, jaw or back ??? Shortness of breath or increased pain with breathing ??? Weakness, dizziness, or fainting ??? Rapid heart beat ??? Crushing sensation in your chest ?? When to seek medical advice Call your healthcare provider right away if any of these occur: ??? Cough with dark colored sputum (phlegm) or blood ??? Fever of 100.4??F (38??C) or higher, or as directed by your healthcare provider ??? Swelling, pain or redness in one leg ?? Last Reviewed Date: 2021 ?? [employer]. All rights reserved. This information is not intended as a substitute for professional medical care. Always follow your healthcare professional's instructions. ?? * Rigo LE, Stephanie: PERFORM Event Display: Patient Education Leaflets Authored Date: [id number] Chest Wall Pain: Costochondritis ?? [id number] Chest Wall Pain: Costochondritis The chest pain that you have had today is caused by costochondritis. This condition is caused by aninflammation of the cartilage joining your ribs to your breastbone. It's not caused by heart or lung problems. Your healthcare team has made sure that the chest pain you feel is not from a life threatening cause of chest pain such as heart attack, collapsed lung, blood clot in the lung, tear in theaorta, or esophageal rupture. The inflammation may have been brought on by a blow to the chest, lifting heavy objects, intense exercise, or an illness that made you cough and sneeze a lot. It??often occurs??during times of emotional stress.??It can be painful, but it's not dangerous. It usually goes away in 1 to 2 weeks. But it may happen again. Rarely, a more serious condition may cause symptomssimilar to costochondritis. That???s why it???s important to watch for the warning signs listed below. Home care Follow these guidelines when caring for yourself at home: ??? If you feel that emotional stress is a cause of your condition, try to figure out the sources of that stress. It may not be obvious. Learn ways to deal with the stress in your life. This can include regular exercise, muscle relaxation, meditation, or simply taking time out for yourself. ??? You may use acetaminophen, ibuprofen, or naproxen to control pain, unless another pain medicine was prescribed. If you have liver or kidney disease or ever had a stomach ulcer, talk with your healthcare provider before using these medicines. ???You can also help ease pain by using a hot, wet compress or heating pad. Use this with or without amedicated skin cream that helps relieves pain. ??? Do stretching exercise as advised by your provider. Typically rest is beneficial for the first few days. Avoid strenuous activity that worsens the pain. ??? Take any prescribed medicines as directed. ?? Follow-up care Follow up with your healthcare provider, or as advised. Call 911 Call 911 if any of these occur: ??? A change in the type of pain which feels different, becomes more serious, lasts longer, or spreads into your shoulder, arm, neck, jaw, or back ??? Fainting ??? Shortness of breath or trouble breathing ?? When to get medical advice Call your healthcare provider right away if any of these occur: ??? Pain gets worse when you breathe ??? Weakness or dizziness ??? Cough with dark-colored sputum (phlegm) or blood ??? Fever of 100.4??F (38??C) or higher, or as advised by your provider ?? Last Reviewed Date: 2021 ?? [id number] [employer]. All rights reserved. This information is not intended as a substitute for professional medical care. Always follow your healthcare professional's instructions. ?? Patient Care team information Care Team Personnel Name: Rudi Ruiz RN Position: [facility] ED RN W/OE and Tasks Member Role: Primary Care Nurse Name: Alicja Riggs RN Position: [facility] RN Member Role: Primary Care Nurse Name: Ros Fu RN Position: [facility] RN Member Role: Primary Care Nurse Name: Hilda Mccabe RN Position: [facility] RN Member Role: Primary Care Nurse Name: Rosana Kearney RN Position: [facility] RN Member Role: Primary Care Nurse Name: Wil Flood RN Position: [facility] RN Member Role: Primary Care Nurse Name: Gagandeep Sheldon RN Position: [facility] RN Member Role: Primary Care Nurse Name: Alba Daily RN Position: [facility] RN Member Role: Primary Care Nurse Name: Maribel Marquez NP Position: [facility] PCO Associate Professional Member Role: PCP Address: Address: [address] [place] [id number]- [place] Name: Jose Ramirez RN Position: [facility] RN Member Role: Primary Care Nurse Name: Brittany Butts RN Position: [facility] AMB Nurse Member Role: Primary Care Nurse Name: Pauline Mcadams RN Position: [facility] RN Member Role: Primary Care Nurse Name: Mary Sánchez RN Position: [facility] RN Member Role: Primary Care Nurse Name: Shama Rosado RN Position: [facility] RN Member Role: Primary Care Nurse Name: Jackie Snyder RN Position: [facility] RN Member Role: Primary Care Nurse Name: Jay Burks NP Position: Reference Physician Member Role: Primary Care Nurse Address: Address: [address] [facility] [address] Clinical & Support [place] [address]- [place] Name: Parvez Kaba MD Position: [facility] Renal MD Member Role: Lifetime Consulting Physician Address: Address: [address] [place] [address] [facility] [place] [address]- [place] Name: Mirna Paul RN Position: [facility] OB RN Member Role: Primary Care Nurse Name: Latonya Rahman RN Position: [facility] Onco RN Member Role: Primary Care Nurse Name: Viki Gonzalez RN Position: [facility] RN Member Role: Primary Care Nurse Name: Claudia Presley RN Position: [facility] RN Member Role: Primary Care Nurse Name: Iris Villa RN Position: [facility] Hospital In File Operator Member Role: Primary Care Nurse Name: Nydia Hill RN Position: [facility] ED RN W/OE and Tasks Member Role: Patient Care Provider Name: Stephanie Sierra MD Position: [facility] Resident Member Role: ED Resident Address: Address: [address] [place] [address]- [place] Name: Viola Conklin Position: [facility] ED TA [facility] Member Role: Patient Care Provider Name: Darryl Urbano MD Position: [facility] ED Medicine MD Member Role: ED Attending Physician Address: Address: [address] [place] [id number]- [place] Care Team Related Persons Name: LISBETH- BRICK TESTERINDRA Address: [address] [place] [address] Name: IT COORDINATORGREGG Address: [address] [place] [address] Name: CARLOS PAZ Address: home [address] [place] [address]
--- OUTSIDE RECORDS SUMMARY | 2023-09-19 22:53 | XMS_ITS | Continuity of Care Document ---
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 virus vaccine, inactivated 09/27/2010 Given Comments : Nursing Judgment tetanus/diphtheria/pertussis, acel(Tdap) 05/17/2010 Given pneumococcal 23-valent vaccine - Not Given pneumococcal 23-valent vaccine - Not Given influ virus vac, H1N1, inactive(oldterm) - Not Given influenza virus vaccine, inactivated - Not Given influenza virus vaccine, inactivated 07/23/2009 Recorded pneumococcal 23-valent vaccine - Not Given Comments : Patient Refused influenza virus vaccine, inactivated - Not Given Comments : Patient Refused tetanus/diphtheria/pertussis, acel(Tdap) 05/18/2009 Given Diphth-Tetanus Toxoids Adsorbed(oldterm) 12/04/2008 Given tetanus/diphtheria/pertussis, acel(Tdap) 11/08/2008 Given tetanus/diphtheria/pertussis, acel(Tdap) 07/19/2008 Given influenza virus vaccine, inactivated 07/17/2007 Recorded tetanus/diphtheria/pertussis, acel(Tdap) 07/17/2007 Recorded influenza virus vaccine, inactivated 07/23/2006 Recorded tetanus-diphtheria toxoids (Td) 03/12/1998 Recorded hepatitis B adult vaccine 08/07/1991 Recorded hepatitis B adult vaccine 03/07/1991 Recorded hepatitis B adult vaccine 02/06/1991 Recorded Measles/Mumps/Rubella Virus Vaccine 01/13/1990 Recorded tetanus-diphtheria toxoids (Td) 01/13/1989 Recorded Measles/Mumps/Rubella Virus Vaccine 03/15/1979 Recorded * Rich Silver DO: PERFORM Event Display: Consultation Note Authored Date: [id number] Attending Physician Attestation: I have seen and evaluated this patient??on the date of service??09/11/23??and discussed the case and its management??with??the resident physician, Dr. Trevor Brady as documented. ??I agree with the assessment and plan as documented above.? In brief, Igor Alvarado is a single, unemployed, domiciled 47-year-old female, fci resident, well known to this keno writer from prior evaluation (as recently as 03/05/23 and in supervision of the emergency crisis service for management of borderline personality disorder, posttraumatic stress disorder, chronic suicidality and 70+ inpatient psychiatric hospitalizations for treatment of the same, as well as medical history notable for HTN, HLD, GERD, asthma, T2DM, iron deficiency anemia, and nicotine dependence, who initially presented to [facility] on 09/10/23 for evaluation of suicidal ideation and command auditory hallucinations directing her to engage in self-harming behav iors.?? Initial vitals have been notable for mild tachycardia with heart rate of 93, but otherwise hemodynamically stable.?? Labs demonstrated a normocytic anemia with hemoglobin 10.6, but no leukocytosis, electrolyte derangements, or renal impairments.?? TSH was within normal limits.?? Serum test was negative.?? Serum ethanol is not detected.?? Influenza A, B, RSV, and COVID???19 by PCR testing were all negative.?? There is no urine toxicology available for review.?? There is no diagnostic head imaging available for review from this ED presentation. At this point in time, the patient has been medically cleared and referred to Crisis Services for evaluation with initial disposition being made for IPLOC. The emergency psychiatry service was consulted for reevaluation, medication management, risk assessment, and potential diversion.?? On initial psychiatric evaluation, Igor is rather forthcoming about recent depressive episode in the context of conflict in the fci, the anniversary of the of her biological mother in August and the upcoming anniversary of her adoptive mother's in October.?? She shares chronic auditory hallucinations that seem to worsen when she is in particular distress as well as a history of chronic passive suicidality.?? She has however currently adamantly denying any suicidality, desires for self???injures behaviors, homicidality, command auditory hallucinations, and other symptoms of psychosis.?? She feels that the biggest help in alleviating her recent hallucinations and suicidal thoughts was resuming her medications andchange of environment in the ED setting.?? She is advocating to return back to her fci and notes her numerous arts and crafts and other personal belongings which directly assist with alleviating mood dysregulation, hallucinations, and ego-dystonic thoughts of self-harm and/or suicide.?? She is declining any changes with her psychotropic medications.?? There had been some report about suicidal ideation with plans for intentional toxic ingestion of Tylenol at the fci, but it was confirmed that the patient does not actually have access to any home medications, [id number], prescription, or otherwise.?? We will continue all medications as currently scheduled. Reasonable to continue home Prolixin 5 mg twice daily, BuSpar 10 mg twice daily, Cogentin 1 mg twice daily, Prozac 80 mg daily, prazosin 4 mg daily at bedtime, trazodone 150 mg daily at bedtime, and Remeron 7.5 mg daily at bedtime. She no longer appears to meet criteria for section 12 nor is she voluntary for inpatient psychiatric hospitalization at this time.?? Will recommend she follow-up with her outpatient psychiatrist, Dr. Dylan Gaspar.?? No psychiatric contraindication to discharge.?? She is amenable to returning to the hospital, texting or calling [phone] or crisis.?? She denies access to any firearmsor lethal weapons. At the time of discharge, Igor's imminent risk for suicide was deemed low. Nevertheless, because of her underlying borderline personality disorder, the patient is at chronic risk of self-injurious behavior due to intense dysregulation of mood and impulsivity that is a hallmarkof borderline personality disorder. With prison psychotherapy, she is likely to benefit with better control of personality disorder. Prognosis contingent upon adherence to treatment plan. Patient poses low risk to self and others, denies SI/HI. Seems well enough to be appropriate for step down to outpatient care at this time. ?? Rich Silver D.O.?? Manager Battery, Emergency Psychiatry Services Division of Consultation-Liaison Psychiatry Department of Psychiatry [facility]??[facility] Note * [place] LE, Cara Jalloh: PERFORM, SIGN, VERIFY Event Display: Patient Education Handout Authored Date: [id number] Patient Care team information Care Team Personnel [...] Care Nurse Name: Alba Daily RN Position: [facility] RN Member Role: Primary Care Nurse Name: Maribel Marquez NP Position: [facility] PCO Associate Professional Member Role: PCP Address: Address: [address] [place] [id number]- Name: Jose Ramirez RN Position: [facility] RN Member Role: Primary Care Nurse Name: Brittany Butts RN Position: [facility] AMB Nurse Member Role: Primary Care Nurse Name: Pauline Mcadams RN Position: [facility] RN Member Role: Primary Care Nurse Name: Mary Sánchez RN Position: [facility] RN Member Role: Primary Care Nurse Name: Shaam Rosado RN Position: [facility] RN Member Role: Primary Care Nurse Name: Jackie Snyder RN Position: [facility] RN Member Role: Primary Care Nurse Name: Jay Burks NP Position: Reference Physician Member Role: Primary Care Nurse Address: Address: [address] [place] [address] Clinical & [place] [address]- [place] Name: Parvez Kaba MD Position: [facility] Renal MD Member Role: Lifetime Consulting Physician Address: Address: [address] [place] [address] [facility] [place] [address]- Name: Mirna Paul RN Position: [facility] OB RN Member Role: Primary Care Nurse Name: Latonya Rahman RN Position: [facility] Onco RN Member Role: Primary Care Nurse Name: Viki Gonzalez RN Position: [facility] RN Member Role: Primary Care Nurse Name: Claudia Presley RN Position: [facility] RN Member Role: Primary Care Nurse Name: Iris Villa RN Position: [facility] Hospital Trolley Worker Member Role: Primary Care Nurse Name: *[facility], ED Attending Position: [facility] ED Attendings Patient Name: Cara Miranda MD Position: [facility] ED Medicine MD Member Role: Admitting Physician Address: Address: [address] [place] [address] Name: Darcy Dietz RN Position: [facility] ED RN W/OE and Tasks Member Role: Patient Care Provider Care Team Related Persons Name: JO-ANN ROMANGROUNDHANDINDRA Address: [address] [place] [address] Name: T RAIL TURNERGREGG Address: home [address] [place] [address] Name: CARLOS PAZ Address: home [address] [place] [address]
--- OUTSIDE RECORDS SUMMARY | 2023-09-19 22:53 | XMS_ITS | Continuity of Care Document ---
Author Name Unknown Organization [facility] Address [address] [place] [address]- Care Team Providers Care Steel Rigger Name Role Phone Maribel Marquez NP Primary Care Physician Encounter [facility] Date(s): 08/17/23 - 09/16/23 [facility] [address] [place] [address]- Allergies, Adverse Reactions, Alerts Substance Reaction Severity [...] Virus Vaccine 03/15/79 Recor ded 1Result Comment: [facility] [id number] 2Early/Late Reason: Nursing Judgment Medications Advair Diskus 100 mcg-50 mcg inhalation powder 1, inhalation, Inhalation, 2 times a day, rinse mouth and throat after use, # 3 each, Refills 0, Tot. Refills 0, Maintenance, 08/29/23 13:08:00 EST, Powder, Route to Pharmacy Electronically, [id number]_[id number], [facility], 163, cm, 08/29/23 12... Start Date: [...] 10:33:00 EST, Inhaler, Route to Pharmacy Electronically, NCPDP_[id number], [facility], 163, cm, 11/16/22 9:43:00 EST, Height, [...] 0 Refills, Maintenance, 11/16/22 10:33:00 EST, Tablet, [facility], Partial fill upon patient request if [...] 60 tablet, 1 Refills, Maintenance,02/22/23 10:08:00 EDT, [facility], 146, cm, 02/05/23 20:22:00 EDT, Height, [...] 0 Refills, Maintenance, 11/16/22 10:34:00 EST, Tablet, [facility], Partial fill upon patient request if [...] 0 Refills, Maintenance, 11/16/22 10:34:00 EST, Tablet, [facility], Partial fill upon patient request if [...] 11/16/22 10:34:00 EST, Route to Pharmacy Electronically, [facility], Partial fill upon patient request if [...] 11:34:00 EDT, 05/22/23 11:32:00 EDT, ER Tablet, [facility], Partial fill upon patient request if the prescription is for a radha... Start Date: 05/22/23 Stop Date: 05/29/24 Status: Ordered nicotine 2 mg oral transmucosal lozenge 1 lozenge = 2 mg, By Mouth, Every 2 hours, PRN as needed for smoking cessation, for 6 week(s), # 504 lozenge, 0 Refills, Acute 10/10/23 13:10:00 EST, 08/29/23 13:10:00 EST, [facility], Partial fill upon patient request if the prescription is... Start Date: 08/29/23 Stop Date: 10/10/23 Status: Ordered nystatin topical [id number] u/gm cream 1 application, Topically, 2 times a day, # 15 Gm, 0 Refills, Maintenance, 01/05/23 15:04:00 EDT, Cream, [facility], Partial fill upon patient request if the prescription is for a schedule II opioid drug., 1 application Topically 2 times a da... Start Date: 01/05/23 Status: Ordered nystatin topical [id number] u/gm cream 0 Refills, Maintenance, 01/06/23 18:05:00 [...] 11/16/22 10:34:00 EST, Route to Pharmacy Electronically, [facility], Partial fill upon patient request if [...] Maintenance,11/16/22 10:34:00 EST, Route to Pharmacy Electronically, [facility], Partial fill upon patient request if [...] Care Nurse Name: Alba Daily RN Position: [facility] RN Member Role: Primary Care Nurse Name: Maribel Marquez NP Position: [facility] PCO Associate Professional Member Role: PCP Address: Address: [address] [place] [id number]- Name: Jose Ramirez RN [facility] [...] Role: Primary Care Nurse Address: Address: [address] [place] [address] [address] Clinical & [place] [address]- Name: Parvez Kaba MD Position: [facility] Renal MD Member Role: Lifetime Consulting Physician Address: Address: [address] [place] [address] [facility] [place] [address]- Name: Mirna Paul RN [facility]: [facility] [...] RN Position: [facility] Hospital Public Relations Intern Member Role: Primary Care Nurse Care Team Related Persons Name: LISBETH- FOLLOW UP SPECIALISTINDRA Address: [address] [place] [address] Name: CARDIOVASCULAR TECHGREGG Address: home [address] [place] [address] Name: CARLOS PAZ Address: [address] [place] [address]
[2023-09-19] MEDS: traZODone HCL 50 MG TABLET PO (23:30)
[2023-09-20 01:24] VITALS: BP 136/79; PULSE 109; RESP 18; TEMP 36.8; O2SAT 97
[2023-09-20] MEDS: traZODone HCL 50 MG TABLET 150 MG PO ×2 (02:06→20:42)
--- NOTE | 2023-09-20 02:51 | PC.ADMIT ---
Patient is a 47 yo, single, Italian speaking female transferred from the medical floor to at 2200 on 09-19-23. She is well known to [facility]. She is dressed in hospital sherrie and pants and independent in ADL's. She has urge incontinence and hx of constipation. She is alert/oriented x 4. She resides in [facility]. She has scarring from cutting on her left arm. She smokes and would like nicotine replacement. She states she thinks she has already had her flu shot. Her skin is intact. She states that this is not the first time she has overdosed on tylenol but never this many. She states the precursor was her adopted mothers anniversary. She denies pain. She states that she wants someone to sit with her because she doesnt feel safe. Patient reports having AH and dissociation. She states the voices are constant. RN ensured patient that we were here for her and will keep her safe. Patient fell asleep but woke up and came out to the nursing station. Staff took care of her needs, gave her additional medications to sleep and she went back to bed. She is pleasant calm, and cooperative tonight. No acute events. Will continue to monitor behavior and sleep patterns and continue with care with staff in the a.m.
[2023-09-20] MEDS: Omeprazole 40 MG CAPSULE.DR PO (05:29)
[2023-09-20 08:45] VITALS: BP 139/72; PULSE 80; RESP 16; TEMP 36.4; O2SAT 94
[2023-09-20] MEDS: FLUoxetine HCl 20 MG CAPSULE 80 MG PO (08:58)
[2023-09-20] MEDS: fluPHENAZine HCl 5 MG TABLET PO ×2 (08:59→20:41)
[2023-09-20] MEDS: Benztropine Mesylate 1 MG TABLET PO ×2 (08:59→20:41)
[2023-09-20] MEDS: Atorvastatin Calcium 10 MG TABLET PO (08:59)
[2023-09-20] MEDS: Famotidine 20 MG TABLET PO ×2 (08:59→20:41)
[2023-09-20] MEDS: busPIRone HCl 10 MG TABLET PO ×2 (08:59→20:42)
[2023-09-20] MEDS: lisinopriL 5 MG TABLET PO (08:59)
[2023-09-20] MEDS: metFORMIN HCl 500 MG TABLET PO ×2 (08:59→17:03)
[2023-09-20 09:23] LABS: Alanine Aminotransferase 19 U/L (0-31); Albumin Level 3.7 g/dL (3.5-5.0); Alkaline Phosphatase 95 U/L (39-117); Anion Gap 10 (12-20); Aspartate Amino Transferase 14 U/L (5-31); Bilirubin Total 0.1 mg/dL (0.0-1.0); Blood Urea Nitrogen 10 mg/dL (9-16); Carbon Dioxide 30 mmol/L (22-29); Chloride 108 mmol/L (96-108); Cholesterol 188 mg/dL (<200); Estimated Glomerular Filt Rate > 60; Glucose Fasting 123 mg/dL (60-99); HDL Cholesterol 35 mg/dL (>40); LDL Cholesterol Calculated 94 mg/dL (<100); Potassium 4.2 mmol/L (3.3-5.1); Sodium 144 mmol/L (135-145); Total Protein 6.3 g/dL (6.5-8.0); Triglycerides 296 mg/dL (<150)
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
[2023-09-20 10:05] LABS: MANUAL DIFF FLAG NO
[2023-09-20 10:09] LABS: Basophils Percent Auto 0.2 % (0-2); Eosinophils Absolute Auto 0.2 X10*3/uL (0.0-0.4); Hematocrit 31.1 % (37.0-47.0); Hemoglobin 9.9 g/dl (12.0-16.0); Imm Gran Abs Auto 0.01 X10*3/uL (0.00-0.03); Imm Gran Pct Auto 0.2 % (0.0-0.4); Lymphocytes Absolute Auto 1.3 X10*3/uL (1.2-4.9); Lymphocytes Percent Auto 27.5 % (20-40); Mean Corpuscular HGB Conc 31.8 g/dl (31.0-35.0); Mean Corpuscular Hemoglobin 27.9 pg (27.0-33.0); Mean Corpuscular Volume 87.6 fL (80.0-98.0); Mean Platelet Volume 9.4 fL (9.4-12.3); Monocytes Absolute Auto 0.5 X10*3/uL (0.1-1.2); Neutrophils Absolute Auto 2.6 x10*3/uL (2.0-8.3); Neutrophils Percent Auto 57.1 % (45-73); Platelet Count 256 X10*3/uL (160-400); Red Blood Count 3.55 X10*6/uL (4.20-5.50); Red Cell Distribution Width 13.3 % (11.0-16.0); White Blood Count 4.6 X10*3/uL (4.8-10.8)
[2023-09-20 10:26] LABS: D Dimer High Sensitivity < 150 NG/ML
[2023-09-20 10:45] LABS: C Reactive Protein 0.14 mg/dL (< or = 0.50); Glucose Random 145 mg/dL (60-115); Lactate Dehydrogenase 170 U/L (122-220); Magnesium 1.8 mg/dL (1.6-2.6); Phosphorus 3.6 mg/dL (2.7-4.5)
[2023-09-20 11:02] LABS: Procalcitonin < 0.02 ng/mL
[2023-09-20] MEDS: LORazepam 0.5 MG TABLET PO ×2 (11:45→20:42)
[2023-09-20 16:14] VITALS: BP 136/88; PULSE 94; TEMP 36.3; O2SAT 94
[2023-09-20] MEDS: Prazosin HCL 1 MG CAPSULE 4 MG PO (20:41)
[2023-09-20] MEDS: lamoTRIgine 25 MG TABLET PO (20:41)
[2023-09-20] MEDS: Montelukast Sodium 10 MG TABLET PO (20:42)
[2023-09-20] MEDS: Mirtazapine 7.5 MG TABLET PO (20:42)
[2023-09-21] MEDS: Omeprazole 40 MG CAPSULE.DR PO (05:48)
[2023-09-21 06:00] VITALS: BP 127/61; PULSE 78; RESP 16; TEMP 36.4; O2SAT 93
[2023-09-21] MEDS: Benztropine Mesylate 1 MG TABLET PO ×2 (08:33→21:24)
[2023-09-21] MEDS: FLUoxetine HCl 20 MG CAPSULE 80 MG PO (08:33)
[2023-09-21] MEDS: fluPHENAZine HCl 5 MG TABLET PO ×2 (08:33→21:24)
[2023-09-21] MEDS: Atorvastatin Calcium 10 MG TABLET PO (08:33)
[2023-09-21] MEDS: Fluticasone/Vilanterol 100/25 BLST.W.DEV 1 PUFF INHALE (08:33)
[2023-09-21] MEDS: lisinopriL 5 MG TABLET PO (08:33)
[2023-09-21] MEDS: metFORMIN HCl 500 MG TABLET PO ×2 (08:33→16:23)
[2023-09-21] MEDS: busPIRone HCl 10 MG TABLET PO ×2 (08:33→21:24)
[2023-09-21] MEDS: Famotidine 20 MG TABLET PO ×2 (08:33→21:23)
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
[2023-09-21] MEDS: LORazepam 0.5 MG TABLET PO ×2 (12:30→21:24)
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
[2023-09-21] MEDS: hydrOXYzine HCL 25 MG TABLET PO (16:23)
[2023-09-21] MEDS: LORazepam 1 MG TABLET PO (17:34)
[2023-09-21 18:00] VITALS: BP 128/78; PULSE 101; RESP 18; TEMP 36.9; O2SAT 96
[2023-09-21] MEDS: lamoTRIgine 25 MG TABLET PO (21:23)
[2023-09-21] MEDS: Prazosin HCL 1 MG CAPSULE 4 MG PO (21:24)
[2023-09-21] MEDS: Montelukast Sodium 10 MG TABLET PO (21:24)
[2023-09-21] MEDS: Mirtazapine 7.5 MG TABLET PO (21:24)
[2023-09-21] MEDS: traZODone HCL 50 MG TABLET 150 MG PO (21:25)
[2023-09-21] MEDS: Ibuprofen 400 MG TABLET PO (21:56)
[2023-09-22] MEDS: Omeprazole 40 MG CAPSULE.DR PO (05:30)
[2023-09-22 10:20] VITALS: BP 149/81; PULSE 75; RESP 16; TEMP 36.5; O2SAT 96
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
--- NOTE | 2023-09-22 10:43 | PC.NURSE ---
pt slept all morning and refused to wake for meds.
[2023-09-22] MEDS: Fluticasone/Vilanterol 100/25 BLST.W.DEV 1 PUFF INHALE (10:44)
[2023-09-22] MEDS: Atorvastatin Calcium 10 MG TABLET PO (10:45)
[2023-09-22] MEDS: busPIRone HCl 10 MG TABLET PO (10:45)
[2023-09-22] MEDS: fluPHENAZine HCl 5 MG TABLET PO (10:45)
[2023-09-22] MEDS: Famotidine 20 MG TABLET PO (10:45)
[2023-09-22] MEDS: metFORMIN HCl 500 MG TABLET PO (10:45)
[2023-09-22] MEDS: FLUoxetine HCl 20 MG CAPSULE 80 MG PO (10:45)
[2023-09-22] MEDS: Benztropine Mesylate 1 MG TABLET PO (10:46)
[2023-09-22] MEDS: lisinopriL 5 MG TABLET PO (10:46)
== END 2023-09-22 11:17 | disposition home or self-care (01) | DRG 883 ==
PROVIDERS: Admitting Provider Psychiatry & Neurology Psychiatry; Visit Provider Psychiatry & Neurology Psychiatry
DX: F60.3 Borderline personality disorder (principal); F43.10 Post-traumatic stress disorder, unspecified; E78.5 Hyperlipidemia, unspecified; E11.9 Type 2 diabetes mellitus without complications; F17.210 Nicotine dependence, cigarettes, uncomplicated; F32.A Depression, unspecified; Z71.6 Tobacco abuse counseling; Z91.51 Personal history of suicidal behavior; Z79.51 Long term (current) use of inhaled steroids; Z91.52 Personal history of nonsuicidal self-harm; Z79.84 Long term (current) use of oral hypoglycemic drugs; Z79.899 Other long term (current) drug therapy
CPT/HCPCS: 36415; 80053; 80061; 82550; 82947; 83615; 83735; 84100; 84145; 85025; 85379; 86140

== ENCOUNTER → 2023-09-19 22:38 | Outpatient (BNV) | payer MEDICARE, MEDICAID, SELFPAY | PROVIDERS: Admitting Provider Psychiatry & Neurology Psychiatry; Visit Provider Psychiatry & Neurology Psychiatry | DX: F43.10 Post-traumatic stress disorder, unspecified (principal); F60.3 Borderline personality disorder; F34.1 Dysthymic disorder; E11.9 Type 2 diabetes mellitus without complications; E78.5 Hyperlipidemia, unspecified | CPT/HCPCS: 90792; 99231; 99499 ==

== ENCOUNTER 2023-09-22 22:50 | Emergency (ER) | payer MEDICARE, MEDICAID, SELFPAY ==
--- NOTE | ~2023-09-22 | XR_ITS ---
EXAMINATION: XR ABDOMEN KUB CLINICAL INDICATION: Possible foreign body. COMPARISON: None available. TECHNIQUE: AP view of the abdomen. FINDINGS: The bowel gas pattern is normal with no evidence of ileus or obstruction. No unusual soft tissue calcifications are noted. The bones are unremarkable. XR/XR KUB IMPRESSION: Unremarkable examination.
[2023-09-22 22:59] VITALS: BP 146/89; PULSE 112; RESP 18; TEMP 36.6; O2SAT 97; BMI 38.8
--- NOTE | 2023-09-22 23:07 | ED.GENADULT ---
HPI - General Adult General Chief complaint: Psychiatric Symptoms Stated complaint: Pt stuck 2 sewing needles in stomach deep, per ems Time Seen by Provider: 09/22/23 22:54 Source: patient, EMS and police Mode of arrival: EMS Limitations: no limitations History of Present Illness HPI narrative: 47-year-old female history of PTSD, Tylenol overdoses, hyperlipidemia, diabetes, depression, borderline personality disorder presents to the emergency department status post sticking 2 small sewing needles into her epigastric region prior to arrival she said at the time she was feeling suicidal however now she regrets and wants to take about. Denies visual, auditory hallucinations, suicidal and homicidal ideation at this time. Was brought in by ambulance on a Section 12 by police. Denies medical complaints. Was recently hospitalized for Tylenol overdose Related Data Home Medications Medication Instructions Recorded Confirmed trazodone 150 mg tablet 150 mg PO BEDTIME 06/15/23 09/20/23 benztropine 1 mg tablet 1 mg PO BID 08/25/23 09/20/23 buspirone 10 mg tablet 10 mg PO BID 08/25/23 09/20/23 fluoxetine 40 mg capsule 80 mg PO DAILY 08/25/23 09/20/23 lisinopril 5 mg tablet 5 mg PO DAILY 08/25/23 09/20/23 mirtazapine 7.5 mg tablet 7.5 mg PO BEDTIME 08/25/23 09/20/23 prazosin 2 mg capsule 4 mg PO BEDTIME 08/25/23 09/20/23 fluticasone 100 mcg-salmeterol 50 1 ea inhalation BID 08/31/23 09/20/23 mcg/dose blistr powdr for inhalation (Advair Diskus) lorazepam 0.5 mg tablet 0.5 mg PO DAILY PRN Anxiety 08/31/23 09/20/23 albuterol sulfate 90 mcg/actuation 2 inh inhalation Q4H PRN Shortness 09/17/23 09/20/23 aerosol inhaler (Ventolin HFA) Of Breath Or Wheezing famotidine 10 mg tablet 10 mg PO BID@0630,1630 09/17/23 09/20/23 fluphenazine HCl 5 mg tablet 5 mg PO BID 09/17/23 09/20/23 ibuprofen 400 mg tablet 800 mg PO Q6H PRN Pain (Scale 09/17/23 09/20/23 Score 4-6) lamotrigine 25 mg tablet 25 mg PO DAILY 09/17/23 09/20/23 lamotrigine 25 mg tablet 50 mg PO DAILY 09/17/23 09/20/23 metformin 500 mg tablet 500 mg PO BIDWM 09/17/23 09/20/23 montelukast 10 mg tablet 10 mg PO BEDTIME 09/17/23 09/20/23 pantoprazole 40 mg tablet,delayed 40 mg PO DAILY 09/17/23 09/20/23 release Previous Rx's Medication Instructions Recorded atorvastatin 10 mg tablet 10 mg PO DAILY #30 tabs 09/21/23 Allergies Allergy/AdvReac Type Severity Reaction Status Date / Time azithromycin [AZITHROMYCIN] Allergy Severe Rash Verified 09/16/23 21: Fish Containing Products Allergy Severe Anaphylaxis Verified 09/16/23 21:31 codeine [Codeine] Allergy Intermediate Rash Verified 09/16/23 21:31 Penicillins Allergy Intermediate Rash Verified 09/16/23 21:31 prednisone [Prednisone] Allergy Intermediate Rash Verified 09/16/23 21:31 Sulfa (Sulfonamide Allergy Intermediate Rash Verified 09/16/23 21:31 Antibiotics) [Sulfa (Sulfonamides)] ziprasidone [From Geodon] Allergy Intermediate dysuria, Verified 09/16/23 21:31 rash Review of Systems Review of Systems: Constitutional : No Weight loss, No Fever, No Chills, No Fatigue, No Malaise ENT/Mouth : No sore throat, No Rhinorrhea Eyes: No Eye Pain, No Swelling, No Redness Cardiovascular : No Chest Pain, No SOB, No Dyspnea on Exertion, No Orthopnea, No Edema, No Palpitations Respiratory : No Cough, No Sputum, No Wheezing Gastrointestinal : No Nausea, No Vomiting, No Diarrhea, No Constipation, No abdominal Pain, No Hematochezia, No Melena Genitourinary : No Dysuria, No Urinary Frequency, No Hematuria, Musculoskeletal : No joint pain, No Myalgias, No Joint Swelling Skin : No Skin Lesions, No rash Neuro : No Weakness, No Numbness, No Dizziness, No Headache Psych : No Anxiety/Panic, No Depression, No SI.HI All other systems reviewed and are negative Yes all other systems are reviewed and are negative PMFSH Past Medical History Attestation statement: The following information was validated with the patient. Source: old records reviewed and nursing notes reviewed Medical History Chest pain Acute anxiety COVID-19 Full body hives Major depression Dizziness Suicide attempt UTI (urinary tract infection) Acetaminophen overdose COVID History of attempted suicide History of non-suicidal self-harm Hypomagnesemia Suicide attempt Suicide attempt by acetaminophen overdose Acetaminophen overdose Depression MDD (major depressive disorder), recurrent episode, severe Diabetes type 2, controlled Borderline personality disorder PTSD (post-traumatic stress disorder) Overdose GERD (gastroesophageal reflux disease) Mood disorder Hyperlipidemia Bronchitis Social History Social History Household Members: None Household Members Other:: halfway Housing: Other Housing Other:: [facility] housing Do you presently have visiting nurse or other home services: Yes Unable to assess alcohol history related to: Unknown Alcohol intake: current Alcohol intake frequency: does not drink Comment: 1:1 sitter Patient Tobacco Use Status: Current everyday Tobacco user Tobacco use type: Cigarette Cigarette Packs Per Day: 0.5 Cigarettes Per Day: 10.0 Years Smoked: 22 e-Cigarette/Vaping Use: Never Used Second Hand Smoke Exposure: No Substance Use Type: Marijuana Advance Directives: No Advance Directives Information Provided: No service: No Current occupational status: unemployed and disabled Sexual orientation: Straight/Heterosexual Physical Exam ED Vital Signs: Vital Signs - 24 hr 09/22/23 22:59 Temperature 97.8 F Pulse Rate 112 H Respiratory Rate 18 Blood Pressure 146/89 H Pulse Oximetry 97 Oxygen Delivery Method Room Air BMI result Body Mass Index 38.8 vss Appearance: Alert.? Oriented X3.? No acute distress.? Head: Normocephalic, atraumatic, no step-offs or deformities Eyes: Pupils equal, round and reactive to light.? ENT: Pharynx normal.? Neck: Normal inspection.? Neck supple.? CVS: Normal heart rate and rhythm.? Pulses normal.? Respiratory: No respiratory distress.? Breath sounds normal.? Abdomen: Soft and nontender.? Skin: Skin warm and dry.? Normal skin color.? Normal skin turgor.?+ two sewing needles in patient's epigastric region Extremities: No lower extremity edema.? No calf ttp. 5/5 strength to bilateral upper and lower extremities Back: No midline tenderness, no C-spine tenderness, full range of motion, no CVA tenderness bilaterally Neuro: Oriented X 3.? No motor deficit.? No sensory deficit. CN 2-12 intact Course Reevaluation(s) Reevaluation #1: CBC appears to be around patient's baseline with a normocytic anemia. Chemistry pending. Toxicology pending. KUB unremarkable. Time: 23:55 Reevaluation #2: Demonstrate unremarkable. No acute findings requiring intervention. Plan at this time is to place patient on observation to allow patient to be evaluated by behavioral health team as she is on a Section 12. Stable at time observation was started. Time: 23:56 Medical Decision Making Medical Decision Making [facility] Narrative: 47-year-old female presents with sewing needles to her abdomen status post feeling suicidal now feeling better brought in on a Section 12 PE two sewing needles in patient's epigastric region Likely borderline personality disorder with acute suicidal thoughts. Unlikely metabolic derangements. Plan at this time patient removed the needles herself both of which measured approximately 1-2 cm in length. No abdominal pain to palpation My attending recommends KUB Differential Diagnosis Differential Diagnoses: The differential diagnosis associated with the presentation includes Likely borderline personality disorder with acute suicidal thoughts. Unlikely metabolic derangements. Admission/Observation Consideration of admission/observation: Escalation of care including admission/observation considered Consult Healthcare Provider Management of the patient was discussed with: Shell Plater Lab Data [facility] Lab Attestation statement: I reviewed the patient's lab results. 09/22/23 23:37 09/22/23 23:37 Labs: Lab Results 09/22/23 Range/Units 23:37 WBC 7.3 (4.8-10.8) X10*3/uL RBC 3.64 L (4.20-5.50) X10*6/uL Hgb 10.2 L (12.0-16.0) g/dl Hct 31.3 L (37.0-47.0) % MCV 86.0 (80.0-98.0) fL MCH 28.0 (27.0-33.0) pg MCHC 32.6 (31.0-35.0) g/dl RDW 13.2 (11.0-16.0) % Plt Count 302 (160-400) X10*3/uL MPV 9.7 (9.4-12.3) fL Immature Gran % (Auto) 0.4 (0.0-0.4) % Neut % (Auto) 67.9 (45-73) % Lymph % (Auto) 21.0 (20-40) % [place] % (Auto) 7.7 (2-11) % Eos % (Auto) 2.7 (0-4) % Baso % (Auto) 0.3 (0-2) % Lymph # (Auto) 1.5 (1.2-4.9) X10*3/uL [place] # (Auto) 0.6 (0.1-1.2) X10*3/uL Eos # (Auto) 0.2 (0.0-0.4) X10*3/uL Baso # (Auto) 0.0 (0.0-0.2) X10*3/uL Abs Immat Gran (auto) 0.03 (0.00-0.03) X10*3/uL Absolute Neuts (auto) 5.0 (2.0-8.3) x10*3/uL Absolute Nucleated RBC 0.000 (0.0-0.012) X10*3/uL Nucleated RBC % (auto) 0.0 (0.0-0.2) /100WBC Sodium 141 (135-145) mmol/L Potassium 4.0 (3.3-5.1) mmol/L Chloride 104 (96-108) mmol/L Carbon Dioxide 24 (22-29) mmol/L Anion Gap 17 (12-20) BUN 17 H (9-16) mg/dL Creatinine 0.73 (0.5-1.4) mg/dL Estim Creat Clear Calc 113.4 Estimated GFR > 60 Random Glucose 121 H (60-115) mg/dL Calcium 9.4 (8.4-10.2) mg/dL Magnesium 1.5 L (1.6-2.6) mg/dL Total Bilirubin 0.1 (0.0-1.0) mg/dL AST 18 (5-31) U/L ALT 18 (0-31) U/L Alkaline Phosphatase 106 (39-117) U/L Total Protein 7.3 (6.5-8.0) g/dL Albumin 4.2 (3.5-5.0) g/dL Salicylates < 5.0 L (15-30) mg/dL Acetaminophen < 3 (<30) mcg/mL Ethyl Alcohol < 10 mg/dL Independent Interpretation I performed an independent interpretation of an: Plain X-Ray Radiology Impression Discussion of test interpretation with radiology: I have reviewed the radiologist's reading. External Record Review External record reviewed: Inpatient record, Office record, Outpatient record, Prior outpatient labs, Prior outpatient radiology, Primary care record and Outside ED record Tests considered The following testing was considered but not selected: No abdominal tenderness to palpation unlikely perforation. No indication for CT abdomen and pelvis. Needle was also very small, unlikely harm to visceral organ/intestines/stomach Critical Care Time Critical Care Time Critical Care Time: No Discharge Plan Discharge Clinical Impression: Borderline personality disorder, Intentional self-harm by sharp object Patient Disposition: Still a Patient Prescriptions: No Action trazodone 150 mg tablet 150 mg PO BEDTIME fluoxetine 40 mg capsule 80 mg PO DAILY buspirone 10 mg tablet 10 mg PO BID benztropine 1 mg tablet 1 mg PO BID lisinopril 5 mg tablet 5 mg PO DAILY prazosin 2 mg capsule 4 mg PO BEDTIME mirtazapine 7.5 mg tablet 7.5 mg PO BEDTIME fluticasone propion-salmeterol [Advair Diskus] 100-50 mcg/dose blister with device 1 ea inhalation BID lorazepam 0.5 mg tablet 0.5 mg PO DAILY PRN (Reason: Anxiety) metformin 500 mg Tablet 500 mg PO BIDWM famotidine 10 mg Tablet 10 mg PO BID@0630,1630 lamotrigine 25 mg Tablet 25 mg PO DAILY Rx Instructions: TAKE 25 MG DAILY FROM 09/16 THROUGH 09/30 lamotrigine 25 mg Tablet 50 mg PO DAILY Rx Instructions: TAKE 50 MG DAILY STARTING 10/01 fluphenazine HCl 5 mg tablet 5 mg PO BID albuterol sulfate [Ventolin HFA] 90 mcg/actuation HFA aerosol inhaler 2 inh inhalation Q4H PRN (Reason: Shortness Of Breath Or Wheezing) pantoprazole 40 mg tablet,delayed release (DR/EC) 40 mg PO DAILY ibuprofen 400 mg tablet 800 mg PO Q6H PRN (Reason: Pain (Scale Score 4-6)) montelukast 10 mg tablet 10 mg PO BEDTIME atorvastatin 10 mg tablet 10 mg PO DAILY Qty: 30 0RF
[2023-09-22 23:41] LABS: MANUAL DIFF FLAG NO
[2023-09-22 23:42] LABS: Basophils Percent Auto 0.3 % (0-2); Eosinophils Absolute Auto 0.2 X10*3/uL (0.0-0.4); Eosinophils Percent Auto 2.7 % (0-4); Hematocrit 31.3 % (37.0-47.0); Hemoglobin 10.2 g/dl (12.0-16.0); Imm Gran Abs Auto 0.03 X10*3/uL (0.00-0.03); Imm Gran Pct Auto 0.4 % (0.0-0.4); Lymphocytes Absolute Auto 1.5 X10*3/uL (1.2-4.9); Mean Corpuscular HGB Conc 32.6 g/dl (31.0-35.0); Mean Platelet Volume 9.7 fL (9.4-12.3); Monocytes Absolute Auto 0.6 X10*3/uL (0.1-1.2); Monocytes Percent Auto 7.7 % (2-11); Neutrophils Percent Auto 67.9 % (45-73); Platelet Count 302 X10*3/uL (160-400); Red Blood Count 3.64 X10*6/uL (4.20-5.50); Red Cell Distribution Width 13.2 % (11.0-16.0); White Blood Count 7.3 X10*3/uL (4.8-10.8)
[2023-09-22 23:57] LABS: Acetaminophen LAB < 3 mcg/mL (<30); Salicylate < 5.0 mg/dL (15-30)
[2023-09-23 00:01] LABS: Alanine Aminotransferase 18 U/L (0-31); Albumin Level 4.2 g/dL (3.5-5.0); Alkaline Phosphatase 106 U/L (39-117); Anion Gap 17 (12-20); Aspartate Amino Transferase 18 U/L (5-31); Bilirubin Total 0.1 mg/dL (0.0-1.0); Blood Urea Nitrogen 17 mg/dL (9-16); Calcium 9.4 mg/dL (8.4-10.2); Carbon Dioxide 24 mmol/L (22-29); Chloride 104 mmol/L (96-108); Creatinine Clr Calc Pharmacy 113.4; Estimated Glomerular Filt Rate > 60; Ethanol < 10 mg/dL; Glucose Random 121 mg/dL (60-115); Magnesium 1.5 mg/dL (1.6-2.6); Sodium 141 mmol/L (135-145); Total Protein 7.3 g/dL (6.5-8.0)
[2023-09-23 11:01] LABS: Appearance Urine Clear; Color Urine Yellow; Glucose Urine UA Negative (Negative); Leukocyte Esterase Urine Negative (Negative); Nitrite Urine Negative (Negative); Urine Blood Negative (Negative); Urine Ketones Negative (Negative); Urine Protein Negative (Neg-Trace)
[2023-09-23 11:04] LABS: Amphetamine Screen Urine Not Detected (Not Detect); Barbiturates, Urine Not Detected (Not Detect); Benzodiazepines Screen Urine Not Detected (Not Detect); Cannabinoid Screen Urine Not Detected (Not Detect); Cocaine Screen Urine Not Detected (Not Detect); Fentanyl, urine Not Detected (Not Detect); Opiate Screen Urine Not Detected (Not Detect); Phencyclidine Screen Urine Not Detected (Not Detect)
[2023-09-23 15:18] VITALS: RESP 18
--- NOTE | 2023-09-23 16:37 | PC.NURSE ---
PT in POD this shift advocating for discharge since she woke up this morning. No behavioral concerns. Appetite good. Denies SI/HI/AVH. PT discharged to [facility].
--- NOTE | 2023-09-24 15:01 | MHC.CARE ---
T/w spoke to Lucita for a check in. She reports she is doing good. She was told today that she will be needing to go the day program all day and she states she is scared but it is for further support.
== END 2023-09-23 16:48 | disposition home or self-care (01) ==
PROVIDERS: Physician Assistant; Emergency Provider Internal Medicine; PCP Nurse Practitioner Family
DX: S39.81XA Other specified injuries of abdomen, initial encounter (principal); X78.8XXA Intentional self-harm by other sharp object, initial encounter; F60.3 Borderline personality disorder; Y93.9 Activity, unspecified; Y92.9 Unspecified place or not applicable; Y99.9 Unspecified external cause status; R45.851 Suicidal ideations; F43.10 Post-traumatic stress disorder, unspecified; Z79.899 Other long term (current) drug therapy
CPT/HCPCS: 36415; 74018; 80053; 80143; 80179; 80307; 81003; 83735; 85025; 99284; S9485

== ENCOUNTER 2023-09-28 20:13 | Emergency (ER) | payer MEDICARE, MEDICAID, SELFPAY ==
--- NOTE | 2023-09-28 20:27 | ED.PSYCH ---
HPI - Psych General Stated Complaint: si Time Seen by Provider: 09/28/23 20:16 Source: patient and old records reviewed Mode of arrival: EMS Limitations: no limitations History of Present Illness HPI Narrative: 47 yo female with hx of GERD, HLD, DM, borderline here with depression, anxiety, thoughts of self harm - states it is near the anniversary of her mother's . MD complaint: suicidal ideation, feels depressed and anxiety Onset (ago): week(s) Duration: changing over time and getting worse History of same: Yes Relieving factors: none Exacerbating factors: other Context: significant life stressor Associated psychiatric symptoms: depression and suicidal ideation Associated symptoms: denies other symptoms Treatments prior to arrival: none If self harm: admits thoughts of self harm and self-inflicted trauma Related Data Home Medications Medication Instructions Recorded Confirmed trazodone 150 mg tablet 150 mg PO BEDTIME 06/15/23 09/23/23 benztropine 1 mg tablet 1 mg PO BID 08/25/23 09/23/23 buspirone 10 mg tablet 10 mg PO BID 08/25/23 09/23/23 fluoxetine 40 mg capsule 80 mg PO DAILY 08/25/23 09/23/23 lisinopril 5 mg tablet 5 mg PO DAILY 08/25/23 09/23/23 mirtazapine 7.5 mg tablet 7.5 mg PO BEDTIME 08/25/23 09/23/23 prazosin 2 mg capsule 4 mg PO BEDTIME 08/25/23 09/23/23 fluticasone 100 mcg-salmeterol 50 1 ea inhalation BID 08/31/23 09/23/23 mcg/dose blistr powdr for inhalation (Advair Diskus) lorazepam 0.5 mg tablet 0.5 mg PO DAILY PRN Anxiety 08/31/23 09/23/23 albuterol sulfate 90 mcg/actuation 2 inh inhalation Q4H PRN Shortness 09/17/23 09/23/23 aerosol inhaler (Ventolin HFA) Of Breath Or Wheezing famotidine 10 mg tablet 10 mg PO BID@0630,1630 09/17/23 09/23/23 fluphenazine HCl 5 mg tablet 5 mg PO BID 09/17/23 09/23/23 lamotrigine 25 mg tablet 25 mg PO DAILY 09/17/23 09/23/23 metformin 500 mg tablet 500 mg PO BIDWM 09/17/23 09/23/23 montelukast 10 mg tablet 10 mg PO BEDTIME 09/17/23 09/23/23 pantoprazole 40 mg tablet,delayed 40 mg PO DAILY 09/17/23 09/23/23 release Previous Rx's Medication Instructions Recorded atorvastatin 10 mg tablet 10 mg PO DAILY #30 tabs 09/21/23 Allergies Allergy/AdvReac Type Severity Reaction Status Date / Time azithromycin [AZITHROMYCIN] Allergy Severe Rash Verified 09/16/23 21:31 Fish Containing Products Allergy Severe Anaphylaxis Verified 09/16/23 21:31 codeine [Codeine] Allergy Intermediate Rash Verified 09/16/23 21:31 Penicillins Allergy Intermediate Rash Verified 09/16/23 21:31 prednisone [Prednisone] Allergy Intermediate Rash Verified 09/16/23 21:31 Sulfa (Sulfonamide Allergy Intermediate Rash Verified 09/16/23 21:31 Antibiotics) [Sulfa (Sulfonamides)] ziprasidone [From Geodon] Allergy Intermediate dysuria, Verified 09/16/23 21:31 rash Review of Systems Review of Systems: Constitutional : No Fever, No Chills ENT/Mouth : No Ear Pain, No Nasal Congestion, No sore throat Eyes: No Eye Pain, No Swelling, No Redness Cardiovascular : No Chest Pain, No SOB Respiratory : No Cough, No Sputum, No Dyspnea Gastrointestinal : No Nausea, No Vomiting, No Diarrhea, No Hematochezia, No Melena Genitourinary : No Dysuria, No Urinary Frequency, No Hematuria Musculoskeletal : No Myalgias Skin : No Skin Lesions, No rash, pos abrasions Neuro : No Weakness, No Numbness, No Paresthesias, No Dizziness, No Headache Psych : positive Anxiety, positive Depression, positive SI no HI All other systems reviewed and are negative PMFSH Past Medical History Source: old records reviewed Medical History Chest pain Acute anxiety COVID-19 Full body hives Major depression Dizziness Suicide attempt UTI (urinary tract infection) Acetaminophen overdose COVID History of attempted suicide History of non-suicidal self-harm Hypomagnesemia Suicide attempt Suicide attempt by acetaminophen overdose Acetaminophen overdose Depression MDD (major depressive disorder), recurrent episode, severe Diabetes type 2, controlled Borderline personality disorder PTSD (post-traumatic stress disorder) Overdose GERD (gastroesophageal reflux disease) Mood disorder Hyperlipidemia Bronchitis Social History Social History Household Members: None Household Members Other:: [facility] Housing: Other Housing Other:: [facility] housing Do you presently have visiting nurse or other home services: Yes Unable to assess alcohol history related to: Unknown Alcohol intake: current Alcohol intake frequency: does not drink Comment: 1:1 sitter Patient Tobacco Use Status: Current everyday Tobacco user Tobacco use type: Cigarette Cigarette Packs Per Day: 0.5 Cigarettes Per Day: 10.0 Years Smoked: 22 e-Cigarette/Vaping Use: Never Used Second Hand Smoke Exposure: No Substance Use Type: Marijuana service: No Current occupational status: unemployed and disabled Sexual orientation: Straight/Heterosexual Physical Exam Vital Signs: Appearance: Alert. Oriented X3. No acute distress. Eyes: Pupils equal, round and reactive to light. ENT: Pharynx normal. Neck: Normal inspection. Neck supple. CVS: Normal heart rate and rhythm. Pulses normal. Respiratory: No respiratory distress. Breath sounds normal. Abdomen: Soft and nontender. Skin: Skin warm and dry. Normal skin color. Normal skin turgor. very superficial abrasions on L forearm Extremities: No lower extremity edema. No calf ttp Neuro: Oriented X 3. No motor deficit. No sensory deficit. CN2-12 intact Course Course Course Narrative: Physician observation started at 830pm. Patient placed in physician observation because the patient needed more time for CARE team to assess the need for psych admission. At the time observation was started the patient's vitals were stable, patient is alert and oriented but slightly anxious, Neuro: nonfocal, CV RRR, Lungs clear Medical Decision Making Medical Decision Making [facility] Narrative: 47 yo female with hx of GERD, HLD, DM, borderline, frequent SI attempts here with c/o SI and self harm at this time no ingestions reported will obtain labs and CARE team consult Differential Diagnosis Differential Diagnoses: The differential diagnosis associated with the presentation includes borderline personality disorder, chronic SI, abrasions Admission/Observation Consideration of admission/observation: Escalation of care including admission/observation considered Consult Healthcare Provider Management of the patient was discussed with: Behavioral Health Provider Lab Data [facility] Lab Attestation statement: I reviewed the patient's lab results. Independent Historian Clinical information obtained from an independent historian. History obtained from or confirmed by: EMS External Record Review External record reviewed: Inpatient record Discharge Plan Discharge Clinical Impression: Suicidal ideation, Abrasion Patient Disposition: Still a Patient Instructions: Suicide Prevention (ED), Abrasion (ED) Prescriptions: No Action trazodone 150 mg tablet 150 mg PO BEDTIME fluoxetine 40 mg capsule 80 mg PO DAILY buspirone 10 mg tablet 10 mg PO BID benztropine 1 mg tablet 1 mg PO BID lisinopril 5 mg tablet 5 mg PO DAILY prazosin 2 mg capsule 4 mg PO BEDTIME mirtazapine 7.5 mg tablet 7.5 mg PO BEDTIME fluticasone propion-salmeterol [Advair Diskus] 100-50 mcg/dose blister with device 1 ea inhalation BID lorazepam 0.5 mg tablet 0.5 mg PO DAILY PRN (Reason: Anxiety) metformin 500 mg Tablet 500 mg PO BIDWM famotidine 10 mg Tablet 10 mg PO BID@0630,1630 lamotrigine 25 mg Tablet 25 mg PO DAILY Rx Instructions: TAKE 25 MG DAILY FROM 09/16 THROUGH 09/30 fluphenazine HCl 5 mg tablet 5 mg PO BID albuterol sulfate [Ventolin HFA] 90 mcg/actuation HFA aerosol inhaler 2 inh inhalation Q4H PRN (Reason: Shortness Of Breath Or Wheezing) pantoprazole 40 mg tablet,delayed release (DR/EC) 40 mg PO DAILY montelukast 10 mg tablet 10 mg PO BEDTIME atorvastatin 10 mg tablet 10 mg PO DAILY Qty: 30 0RF
[2023-09-28 20:28] VITALS: BP 151/95; PULSE 93; RESP 16; TEMP 36.8; O2SAT 96; BMI 37.8
[2023-09-28] MEDS: LORazepam 1 MG TABLET PO (20:47)
[2023-09-28 20:50] LABS: MANUAL DIFF FLAG NO
[2023-09-28 20:54] LABS: Basophils Percent Auto 0.4 % (0-2); Eosinophils Absolute Auto 0.3 X10*3/uL (0.0-0.4); Eosinophils Percent Auto 3.5 % (0-4); Imm Gran Abs Auto 0.05 X10*3/uL (0.00-0.03); Imm Gran Pct Auto 0.7 % (0.0-0.4); Lymphocytes Absolute Auto 1.8 X10*3/uL (1.2-4.9); Lymphocytes Percent Auto 24.8 % (20-40); Mean Corpuscular HGB Conc 32.3 g/dl (31.0-35.0); Mean Corpuscular Hemoglobin 28.1 pg (27.0-33.0); Mean Corpuscular Volume 87.1 fL (80.0-98.0); Mean Platelet Volume 9.5 fL (9.4-12.3); Monocytes Absolute Auto 0.8 X10*3/uL (0.1-1.2); Monocytes Percent Auto 10.4 % (2-11); Neutrophils Absolute Auto 4.5 x10*3/uL (2.0-8.3); Neutrophils Percent Auto 60.2 % (45-73); Platelet Count 314 X10*3/uL (160-400); Red Blood Count 3.56 X10*6/uL (4.20-5.50); Red Cell Distribution Width 13.6 % (11.0-16.0); White Blood Count 7.4 X10*3/uL (4.8-10.8)
[2023-09-28 21:04] VITALS: BP 133/89; PULSE 62; RESP 16; TEMP 37.5; O2SAT 97
[2023-09-28 21:04] LABS: COVID-19 Test Negative (Negative); IDNOW Serial# BCCEAD1C
[2023-09-28 21:06] LABS: Alanine Aminotransferase 15 U/L (0-31); Albumin Level 4.1 g/dL (3.5-5.0); Alkaline Phosphatase 116 U/L (39-117); Anion Gap 15 (12-20); Aspartate Amino Transferase 16 U/L (5-31); Bilirubin Direct < 0.2 mg/dL (0.0-0.5); Bilirubin Total 0.2 mg/dL (0.0-1.0); Blood Urea Nitrogen 14 mg/dL (9-16); Calcium 9.2 mg/dL (8.4-10.2); Carbon Dioxide 22 mmol/L (22-29); Chloride 106 mmol/L (96-108); Creatinine Clr Calc Pharmacy 105.9; Estimated Glomerular Filt Rate > 60; Glucose Random 102 mg/dL (60-115); Magnesium 1.8 mg/dL (1.6-2.6); Potassium 4.1 mmol/L (3.3-5.1); Sodium 139 mmol/L (135-145)
[2023-09-28 21:42] LABS: Appearance Urine Clear; Color Urine Yellow; Glucose Urine UA Negative (Negative); Leukocyte Esterase Urine Small (1+) (Negative); Nitrite Urine Negative (Negative); UMIC TRIGGER UACC YES; Urine Blood Negative (Negative); Urine Ketones Negative (Negative); Urine Protein Negative (Neg-Trace)
[2023-09-28 21:45] LABS: Bacteria Urine 1+ (None Seen); Hyaline Casts Urine 0-2 /LPF (0-2); RBC Urine 0-2 /HPF (0-2); UACC Culture Trigger YES
[2023-09-28 21:52] LABS: Amphetamine Screen Urine Not Detected (Not Detect); Barbiturates, Urine Not Detected (Not Detect); Benzodiazepines Screen Urine Not Detected (Not Detect); Cannabinoid Screen Urine Not Detected (Not Detect); Cocaine Screen Urine Not Detected (Not Detect); Fentanyl, urine Not Detected (Not Detect); Opiate Screen Urine Not Detected (Not Detect); Phencyclidine Screen Urine Not Detected (Not Detect)
--- NOTE | 2023-09-29 00:07 | PC.NURSE ---
Pt resting comfortably. Pt with 1 on 1 Plan of care ongoing.
[2023-09-29 06:00] VITALS: BP 112/63; PULSE 74; RESP 14; O2SAT 97
--- NOTE | 2023-09-29 07:04 | PC.NURSE ---
Pt remains asleep at this time, pt has 1:1 continued for behavior concerns.
[2023-09-29 11:00] VITALS: BP 138/68; PULSE 77; RESP 16; TEMP 36.6; O2SAT 95
--- NOTE | 2023-09-29 11:35 | PC.NURSE ---
1:1 at bedside. calm, coop. denies si/hi/ah/vh. walked well to BR. eating crackers/po fluids.
== END 2023-09-29 12:45 | disposition home or self-care (01) ==
PROVIDERS: Emergency Medicine; Emergency Provider Emergency Medicine; PCP Nurse Practitioner Family
DX: F33.1 Major depressive disorder, recurrent, moderate (principal); R45.851 Suicidal ideations; F43.9 Reaction to severe stress, unspecified; F41.1 Generalized anxiety disorder; Z11.52 Encounter for screening for COVID-19; Z20.822 Contact with and (suspected) exposure to COVID-19; F17.210 Nicotine dependence, cigarettes, uncomplicated; Z71.6 Tobacco abuse counseling; Z79.899 Other long term (current) drug therapy
CPT/HCPCS: 80048; 80076; 80307; 81001; 83735; 85025; 87086; 87635; 99285; S9485

== ENCOUNTER 2023-10-01 21:09 | Emergency (ER) | payer MEDICARE, MEDICAID, SELFPAY ==
[2023-10-01 21:15] VITALS: BP 146/66; PULSE 88; O2SAT 99
[2023-10-01 21:28] VITALS: BMI 39.0
--- NOTE | 2023-10-01 21:38 | ED.PSYCH ---
HPI - Psych General Chief Complaint: Psychiatric Symptoms Stated Complaint: SI SELF INFLICTED SUPERFICIAL LACS Time Seen by Provider: 10/01/23 21:12 Source: patient and old records reviewed Mode of arrival: EMS Limitations: no limitations History of Present Illness HPI Narrative: 47 yo female with PMH of borderline personality disorder who we know well here with c/o self inflicted trauma with reports of SI - used a broken cereal bowl to inflict trauma. MD complaint: suicidal ideation, feels depressed and anxiety Onset (ago): month(s) Duration: intermittent History of same: Yes Relieving factors: none Exacerbating factors: other Context: significant life stressor Associated psychiatric symptoms: depression and suicidal ideation Associated symptoms: denies other symptoms Treatments prior to arrival: none If self harm: admits thoughts of self harm, has plan, has acted on plan and self-inflicted trauma Related Data Home Medications Medication Instructions Recorded Confirmed trazodone 150 mg tablet 150 mg PO BEDTIME 06/15/23 09/23/23 benztropine 1 mg tablet 1 mg PO BID 08/25/23 09/23/23 buspirone 10 mg tablet 10 mg PO BID 08/25/23 09/23/23 fluoxetine 40 mg capsule 80 mg PO DAILY 08/25/23 09/23/23 lisinopril 5 mg tablet 5 mg PO DAILY 08/25/23 09/23/23 mirtazapine 7.5 mg tablet 7.5 mg PO BEDTIME 08/25/23 09/23/23 prazosin 2 mg capsule 4 mg PO BEDTIME 08/25/23 09/23/23 fluticasone 100 mcg-salmeterol 50 1 ea inhalation BID 08/31/23 09/23/23 mcg/dose blistr powdr for inhalation (Advair Diskus) lorazepam 0.5 mg tablet 0.5 mg PO DAILY PRN Anxiety 08/31/23 09/23/23 albuterol sulfate 90 mcg/actuation 2 inh inhalation Q4H PRN Shortness 09/17/23 09/23/23 aerosol inhaler (Ventolin HFA) Of Breath Or Wheezing famotidine 10 mg tablet 10 mg PO BID@0630,1630 09/17/23 09/23/23 fluphenazine HCl 5 mg tablet 5 mg PO BID 09/17/23 09/23/23 lamotrigine 25 mg tablet 25 mg PO DAILY 09/17/23 09/23/23 metformin 500 mg tablet 500 mg PO BIDWM 09/17/23 09/23/23 montelukast 10 mg tablet 10 mg PO BEDTIME 09/17/23 09/23/23 pantoprazole 40 mg tablet,delayed 40 mg PO DAILY 09/17/23 09/23/23 release Previous Rx's Medication Instructions Recorded atorvastatin 10 mg tablet 10 mg PO DAILY #30 tabs 09/21/23 Allergies Allergy/AdvReac Type Severity Reaction Status Date / Time azithromycin [AZITHROMYCIN] Allergy Severe Rash Verified 09/16/23 21:31 Fish Containing Products Allergy Severe Anaphylaxis Verified 09/16/23 21:31 codeine [Codeine] Allergy Intermediate Rash Verified 09/16/23 21:31 Penicillins Allergy Intermediate Rash Verified 09/16/23 21:31 prednisone [Prednisone] Allergy Intermediate Rash Verified 09/16/23 21:31 Sulfa (Sulfonamide Allergy Intermediate Rash Verified 09/16/23 21:31 Antibiotics) [Sulfa (Sulfonamides)] ziprasidone [From Geodon] Allergy Intermediate dysuria, Verified 09/16/23 21:31 rash Review of Systems Review of Systems: Constitutional : No Fever, No Chills ENT/Mouth : No Ear Pain, No Nasal Congestion, No sore throat Eyes: No Eye Pain, No Swelling, No Redness Cardiovascular : No Chest Pain, No SOB Respiratory : No Cough, No Sputum, No Dyspnea Gastrointestinal : No Nausea, No Vomiting, No Diarrhea, No Hematochezia, No Melena Genitourinary : No Dysuria, No Urinary Frequency, No Hematuria Musculoskeletal : No Myalgias Skin : No Skin Lesions, No rash Neuro : No Weakness, No Numbness, No Paresthesias, No Dizziness, No Headache Psych : positive Anxiety, positive Depression, positive SI no HI All other systems reviewed and are negative PMFSH Past Medical History Source: old records reviewed Medical History Chest pain Acute anxiety COVID-19 Full body hives Major depression Dizziness Suicide attempt UTI (urinary tract infection) Acetaminophen overdose COVID History of attempted suicide History of non-suicidal self-harm Hypomagnesemia Suicide attempt Suicide attempt by acetaminophen overdose Acetaminophen overdose Depression MDD (major depressive disorder), recurrent episode, severe Diabetes type 2, controlled Borderline personality disorder PTSD (post-traumatic stress disorder) Overdose GERD (gastroesophageal reflux disease) Mood disorder Hyperlipidemia Bronchitis Social History Social History Household Members: None Household Members Other:: jail Housing: Other Housing Other:: [facility] housing Do you presently have visiting nurse or other home services: Yes Unable to assess alcohol history related to: Unknown Alcohol intake: current Alcohol intake frequency: does not drink Comment: 1:1 sitter Patient Tobacco Use Status: Current everyday Tobacco user Tobacco use type: Cigarette Cigarette Packs Per Day: 0.5 Cigarettes Per Day: 10.0 Years Smoked: 22 e-Cigarette/Vaping Use: Never Used Second Hand Smoke Exposure: No Substance Use Type: Marijuana service: No Current occupational status: unemployed and disabled Sexual orientation: Straight/Heterosexual Physical Exam Vital Signs: Vital Signs: BMI result Body Mass Index 39.0 Appearance: Alert. Oriented X3. No acute distress. Eyes: Pupils equal, round and reactive to light. ENT: Pharynx normal. Neck: Normal inspection. Neck supple. CVS: Normal heart rate and rhythm. Pulses normal. Respiratory: No respiratory distress. Breath sounds normal. Abdomen: Soft and nontender. Skin: Skin warm and dry. Normal skin color. Normal skin turgor. abdomen and both extremities superficial linear abrasions noted Extremities: No lower extremity edema. No calf ttp Neuro: Oriented X 3. No motor deficit. No sensory deficit. Course Reevaluation(s) Reevaluation #1: has day program tomorrow and therapy at 10am and dentist appointment. CARE team involved in very long meeting today about action care plan as she is continually in the ED and missing outpatient appointments CARE team feels she can be discharged at this time Medical Decision Making Medical Decision Making [facility] Narrative: 47 yo female with PMH of borderline personality disorder well known to us with chronic SI who comes in with c/o self harm and SI - wounds are very superficial will obtain basic labs and CARE team consult Differential Diagnosis Differential Diagnoses: The differential diagnosis associated with the presentation includes chronic SI, borderline Admission/Observation Consideration of admission/observation: Escalation of care including admission/observation considered Consult Healthcare Provider Management of the patient was discussed with: Behavioral Health Provider Lab Data [facility] Lab Attestation statement: I reviewed the patient's lab results. Independent Historian Clinical information obtained from an independent historian. History obtained from or confirmed by: EMS External Record Review External record reviewed: Inpatient record Social Determinants Patient?s care significantly limited by Social Determinants of Health including: Problems related to primary support group Discharge Plan Discharge Clinical Impression: Suicidal ideation, Abrasion Patient Disposition: Still a Patient Instructions: Abrasion (ED), Suicide Prevention (ED) Additional Instructions: it is very important you go to your programs and appointments tomorrow. please return of you have worsening thoughts of self harm or any other concerns. monitor abrasions for redness, swelling, yellow drainage or signs of infection Prescriptions: No Action trazodone 150 mg tablet 150 mg PO BEDTIME fluoxetine 40 mg capsule 80 mg PO DAILY buspirone 10 mg tablet 10 mg PO BID benztropine 1 mg tablet 1 mg PO BID lisinopril 5 mg tablet 5 mg PO DAILY prazosin 2 mg capsule 4 mg PO BEDTIME mirtazapine 7.5 mg tablet 7.5 mg PO BEDTIME fluticasone propion-salmeterol [Advair Diskus] 100-50 mcg/dose blister with device 1 ea inhalation BID lorazepam 0.5 mg tablet 0.5 mg PO DAILY PRN (Reason: Anxiety) metformin 500 mg Tablet 500 mg PO BIDWM famotidine 10 mg Tablet 10 mg PO BID@0630,1630 lamotrigine 25 mg Tablet 25 mg PO DAILY Rx Instructions: TAKE 25 MG DAILY FROM 09/16 THROUGH 09/30 fluphenazine HCl 5 mg tablet 5 mg PO BID albuterol sulfate [Ventolin HFA] 90 mcg/actuation HFA aerosol inhaler 2 inh inhalation Q4H PRN (Reason: Shortness Of Breath Or Wheezing) pantoprazole 40 mg tablet,delayed release (DR/EC) 40 mg PO DAILY montelukast 10 mg tablet 10 mg PO BEDTIME atorvastatin 10 mg tablet 10 mg PO DAILY Qty: 30 0RF
[2023-10-01 22:07] LABS: Basophils Percent Auto 0.4 % (0-2); Eosinophils Absolute Auto 0.2 X10*3/uL (0.0-0.4); Eosinophils Percent Auto 2.7 % (0-4); Hematocrit 33.5 % (37.0-47.0); Hemoglobin 10.6 g/dl (12.0-16.0); Imm Gran Abs Auto 0.05 X10*3/uL (0.00-0.03); Imm Gran Pct Auto 0.6 % (0.0-0.4); Lymphocytes Absolute Auto 1.6 X10*3/uL (1.2-4.9); Lymphocytes Percent Auto 19.1 % (20-40); MANUAL DIFF FLAG NO; Mean Corpuscular HGB Conc 31.6 g/dl (31.0-35.0); Mean Corpuscular Hemoglobin 27.6 pg (27.0-33.0); Mean Corpuscular Volume 87.2 fL (80.0-98.0); Mean Platelet Volume 9.5 fL (9.4-12.3); Monocytes Absolute Auto 0.8 X10*3/uL (0.1-1.2); Neutrophils Absolute Auto 5.8 x10*3/uL (2.0-8.3); Neutrophils Percent Auto 68.2 % (45-73); Platelet Count 296 X10*3/uL (160-400); Red Blood Count 3.84 X10*6/uL (4.20-5.50); Red Cell Distribution Width 13.7 % (11.0-16.0); White Blood Count 8.5 X10*3/uL (4.8-10.8)
[2023-10-01 22:25] VITALS: BP 114/46; PULSE 89; RESP 18; TEMP 36.9; O2SAT 95
[2023-10-01] MEDS: LORazepam 1 MG TABLET PO (22:25)
[2023-10-01 22:37] LABS: COVID-19 Test Negative (Negative); IDNOW Serial# 6674DD1D
[2023-10-01 22:42] LABS: Appearance Urine Clear; Color Urine Yellow; Glucose Urine UA Negative (Negative); Leukocyte Esterase Urine Small (1+) (Negative); Nitrite Urine Negative (Negative); Specific Gravity - Urine <= 1.005 (1.005-1.025); UMIC TRIGGER UACC YES; Urine Blood Negative (Negative); Urine Ketones Negative (Negative); Urine Protein Negative (Neg-Trace)
[2023-10-01 22:43] LABS: Bacteria Urine 1+ (None Seen); Hyaline Casts Urine 0-2 /LPF (0-2); Squamous Epithelial Cell Urine 0-2 /HPF (0-2); UACC Culture Trigger YES; WBC Urine 0-5 /HPF (0-5)
[2023-10-01 22:48] LABS: Amphetamine Screen Urine Not Detected (Not Detect); Barbiturates, Urine Not Detected (Not Detect); Benzodiazepines Screen Urine Not Detected (Not Detect); Cannabinoid Screen Urine Not Detected (Not Detect); Cocaine Screen Urine Not Detected (Not Detect); Fentanyl, urine Not Detected (Not Detect); Opiate Screen Urine Not Detected (Not Detect); Phencyclidine Screen Urine Not Detected (Not Detect)
[2023-10-01 22:49] LABS: Alanine Aminotransferase 12 U/L (0-31); Albumin Level 4.3 g/dL (3.5-5.0); Alkaline Phosphatase 101 U/L (39-117); Anion Gap 15 (12-20); Aspartate Amino Transferase 16 U/L (5-31); Bilirubin Direct < 0.2 mg/dL (0.0-0.5); Bilirubin Total 0.2 mg/dL (0.0-1.0); Blood Urea Nitrogen 14 mg/dL (9-16); Calcium 9.3 mg/dL (8.4-10.2); Carbon Dioxide 21 mmol/L (22-29); Chloride 108 mmol/L (96-108); Creatinine Clr Calc Pharmacy 88.9; Estimated Glomerular Filt Rate > 60; Glucose Random 115 mg/dL (60-115); Potassium 3.6 mmol/L (3.3-5.1); Sodium 140 mmol/L (135-145); Total Protein 7.3 g/dL (6.5-8.0)
[2023-10-01 22:51] LABS: Acetaminophen LAB < 3 mcg/mL (<30); Salicylate < 5.0 mg/dL (15-30)
== END 2023-10-01 22:35 | disposition still patient (30) ==
PROVIDERS: Emergency Provider Emergency Medicine
DX: F33.1 Major depressive disorder, recurrent, moderate (principal); R45.851 Suicidal ideations; S31.119A Laceration without foreign body of abdominal wall, unspecified quadrant without penetration into peritoneal cavity, initial encounter; S41.112A Laceration without foreign body of left upper arm, initial encounter; S41.111A Laceration without foreign body of right upper arm, initial encounter; X78.9XXA Intentional self-harm by unspecified sharp object, initial encounter; Y93.9 Activity, unspecified; Y92.9 Unspecified place or not applicable; Y99.9 Unspecified external cause status; F41.1 Generalized anxiety disorder; F43.0 Acute stress reaction; F17.210 Nicotine dependence, cigarettes, uncomplicated; Z11.52 Encounter for screening for COVID-19; Z20.822 Contact with and (suspected) exposure to COVID-19; Z71.6 Tobacco abuse counseling; Z79.899 Other long term (current) drug therapy
CPT/HCPCS: 80048; 80076; 80143; 80179; 80307; 81001; 85025; 87086; 87635; 99284; 99285; S9485

== ENCOUNTER 2023-10-02 21:02 | Emergency (ER) | payer MEDICARE, MEDICAID, SELFPAY ==
[2023-10-02 21:07] VITALS: BP 144/97; BP 168/78; PULSE 87; PULSE 97; RESP 18; TEMP 37.2; O2SAT 97; BMI 36.0
--- NOTE | 2023-10-02 21:16 | PC.NURSE ---
Assumed care of pt. Pt ambulating with steady gait, calm and cooperative with staff at this time. Pt endorsing self-harm d/t anniversary of mother's approaching. Notable for perpendicular cuts to BUE, in various states of healing, no active bleeding at this time. Pt on 15 minute checks for safety. Changeover completed by Security and ED staff.
[2023-10-02] MEDS: LORazepam 1 MG TABLET PO (21:21)
[2023-10-02] MEDS: Nicotine 21 MG PATCH.TD24 TRANSDERMA (21:21)
--- NOTE | 2023-10-02 21:29 | ED.PSYCH ---
HPI - Psych General Chief Complaint: Psychiatric Symptoms Stated Complaint: PSYCH PT. CUTTING ON ARMS/SI Source: patient and old records reviewed Mode of arrival: EMS Limitations: no limitations History of Present Illness HPI Narrative: 47 yo female with PMH of self harm, borderline personality disorder just seen yesterday for same - reports pulling at her abrasions and scratching herself. Has SI and cannot live like this. MD complaint: suicidal ideation and feels depressed Onset (ago): year(s) Duration: intermittent, changing over time and getting worse History of same: Yes Relieving factors: none Exacerbating factors: other Context: significant life stressor Associated psychiatric symptoms: depression and suicidal ideation Associated symptoms: denies other symptoms Treatments prior to arrival: none If self harm: admits thoughts of self harm, has plan, has acted on plan and self-inflicted trauma Related Data Home Medications Medication Instructions Recorded Confirmed trazodone 150 mg tablet 150 mg PO BEDTIME 06/15/23 09/23/23 benztropine 1 mg tablet 1 mg PO BID 08/25/23 09/23/23 buspirone 10 mg tablet 10 mg PO BID 08/25/23 09/23/23 fluoxetine 40 mg capsule 80 mg PO DAILY 08/25/23 09/23/23 lisinopril 5 mg tablet 5 mg PO DAILY 08/25/23 09/23/23 mirtazapine 7.5 mg tablet 7.5 mg PO BEDTIME 08/25/23 09/23/23 prazosin 2 mg capsule 4 mg PO BEDTIME 08/25/23 09/23/23 fluticasone 100 mcg-salmeterol 50 1 ea inhalation BID 08/31/23 09/23/23 mcg/dose blistr powdr for inhalation (Advair Diskus) lorazepam 0.5 mg tablet 0.5 mg PO DAILY PRN Anxiety 08/31/23 09/23/23 albuterol sulfate 90 mcg/actuation 2 inh inhalation Q4H PRN Shortness 09/17/23 09/23/23 aerosol inhaler (Ventolin HFA) Of Breath Or Wheezing famotidine 10 mg tablet 10 mg PO BID@0630,1630 09/17/23 09/23/23 fluphenazine HCl 5 mg tablet 5 mg PO BID 09/17/23 09/23/23 lamotrigine 25 mg tablet 25 mg PO DAILY 09/17/23 09/23/23 metformin 500 mg tablet 500 mg PO BIDWM 09/17/23 09/23/23 montelukast 10 mg tablet 10 mg PO BEDTIME 09/17/23 09/23/23 pantoprazole 40 mg tablet,delayed 40 mg PO DAILY 09/17/23 09/23/23 release Previous Rx's Medication Instructions Recorded atorvastatin 10 mg tablet 10 mg PO DAILY #30 tabs 09/21/23 Allergies Allergy/AdvReac Type Severity Reaction Status Date / Time azithromycin [AZITHROMYCIN] Allergy Severe Rash Verified 09/16/23 21:31 Fish Containing Products Allergy Severe Anaphylaxis Verified 09/16/23 21:31 codeine [Codeine] Allergy Intermediate Rash Verified 09/16/23 21:31 Penicillins Allergy Intermediate Rash Verified 09/16/23 21:31 prednisone [Prednisone] Allergy Intermediate Rash Verified 09/16/23 21:31 Sulfa (Sulfonamide Allergy Intermediate Rash Verified 09/16/23 21:31 Antibiotics) [Sulfa (Sulfonamides)] ziprasidone [From Geodon] Allergy Intermediate dysuria, Verified 09/16/23 21:31 rash Review of Systems Review of Systems: Constitutional : No Fever, No Chills ENT/Mouth : No Ear Pain, No Nasal Congestion, No sore throat Eyes: No Eye Pain, No Swelling, No Redness Cardiovascular : No Chest Pain, No SOB Respiratory : No Cough, No Sputum, No Dyspnea Gastrointestinal : No Nausea, No Vomiting, No Diarrhea, No Hematochezia, No Melena Genitourinary : No Dysuria, No Urinary Frequency, No Hematuria Musculoskeletal : No Myalgias Skin : No Skin Lesions, No rash Neuro : No Weakness, No Numbness, No Paresthesias, No Dizziness, No Headache Psych : positive Anxiety, positive Depression, positive SI no HI Heme/Lymph: No Lymphadenopathy Endocrine : No Polyuria, No Polydipsia All other systems reviewed and are negative [facility] Past Medical History Attestation statement: The following information was validated with the patient. Source: old records reviewed Medical History Chest pain Acute anxiety COVID-19 Full body hives Major depression Dizziness Suicide attempt UTI (urinary tract infection) Acetaminophen overdose COVID History of attempted suicide History of non-suicidal self-harm Hypomagnesemia Suicide attempt Suicide attempt by acetaminophen overdose Acetaminophen overdose Depression MDD (major depressive disorder), recurrent episode, severe Diabetes type 2, controlled Borderline personality disorder PTSD (post-traumatic stress disorder) Overdose GERD (gastroesophageal reflux disease) Mood disorder Hyperlipidemia Bronchitis Social History Social History Household Members: None Household Members Other:: assisted Housing: Other Housing Other:: [facility] housing Do you presently have visiting nurse or other home services: Yes Unable to assess alcohol history related to: Unknown Alcohol intake: never Comment: 1:1 sitter Patient Tobacco Use Status: Current everyday Tobacco user Tobacco use type: Cigarette Cigarette Packs Per Day: 0.5 Cigarettes Per Day: 10.0 Years Smoked: 22 Smoked in Last 30 Days: Yes e-Cigarette/Vaping Use: Never Used Second Hand Smoke Exposure: No Use of substances other than those prescribed or required for medical reasons: No Substance Use Type: Marijuana Advance Directives: No Advance Directives Information Provided: No Patient : No service: No Current occupational status: unemployed and disabled Sexual orientation: Straight/Heterosexual Physical Exam Vital Signs: Vital Signs: Last Vital Signs Temp 99.0 F 10/02/23 21:07 Pulse 97 10/02/23 21:07 Resp 18 10/02/23 21:07 BP 144/97 H 10/02/23 21:07 Pulse Ox 97 10/02/23 21:07 O2 Del Method Room Air 10/02/23 21:07 BMI result Body Mass Index 36.0 Appearance: Alert. Oriented X3. No acute distress. Eyes: Pupils equal, round and reactive to light. ENT: Pharynx normal. Neck: Normal inspection. Neck supple. CVS: Normal heart rate and rhythm. Pulses normal. Respiratory: No respiratory distress. Breath sounds normal. Abdomen: Soft and nontender. Skin: Skin warm and dry. Normal skin color. Normal skin turgor. superficial abrasions noted on both UE and abdomen Extremities: No lower extremity edema. No calf ttp Neuro: Oriented X 3. No motor deficit. No sensory deficit. Cn2-12 intact Course Course Course Narrative: Physician observation started at 934am. Patient placed in physician observation because the patient needed more time for CARE team to assess the need for psych admission. At the time observation was started the patient's vitals were stable, patient is alert and oriented but slightly anxious. Neuro: nonfocal, CV RRR, Lungs clear Medications Administered Discontinued Medications Generic Name Dose Route Start Last Admin Trade Name Elmer PRN Reason Stop Dose Admin Lorazepam 1 mg 10/02/23 21:15 10/02/23 21:21 Lorazepam 1 Mg Tablet PO 10/02/23 21:16 1 mg ONCE ONE Administration Nicotine 21 mg 10/02/23 21:15 10/02/23 21:21 Nicotine 21 Mg Patch.Td24 TRANSDERMA 10/02/23 21:16 21 mg ONCE ONE Administration Medical Decision Making Medical Decision Making MDM Narrative: 47 yo female with borderline personality disorder, well known to us just discharged from our ED who states she did all of her appointments today now back again and c/o self harm and SI - at this time will need basic labs, CARE team consult. She is not toxic and abrasions are superficial Differential Diagnosis Differential Diagnoses: The differential diagnosis associated with the presentation includes borderline personality disorder, self harm, SI Admission/Observation Consideration of admission/observation: Escalation of care including admission/observation considered Consult Healthcare Provider Management of the patient was discussed with: Behavioral Health Provider Lab Data [facility] Lab Attestation statement: I reviewed the patient's lab results. Independent Historian Clinical information obtained from an independent historian. History obtained from or confirmed by: EMS External Record Review External record reviewed: Inpatient record Discharge Plan Discharge Clinical Impression: Suicidal ideation Patient Disposition: Still a Patient Prescriptions: No Action trazodone 150 mg tablet 150 mg PO BEDTIME fluoxetine 40 mg capsule 80 mg PO DAILY buspirone 10 mg tablet 10 mg PO BID benztropine 1 mg tablet 1 mg PO BID lisinopril 5 mg tablet 5 mg PO DAILY prazosin 2 mg capsule 4 mg PO BEDTIME mirtazapine 7.5 mg tablet 7.5 mg PO BEDTIME fluticasone propion-salmeterol [Advair Diskus] 100-50 mcg/dose blister with device 1 ea inhalation BID lorazepam 0.5 mg tablet 0.5 mg PO DAILY PRN (Reason: Anxiety) metformin 500 mg Tablet 500 mg PO BIDWM famotidine 10 mg Tablet 10 mg PO BID@0630,1630 lamotrigine 25 mg Tablet 25 mg PO DAILY Rx Instructions: TAKE 25 MG DAILY FROM 09/16 THROUGH 09/30 fluphenazine HCl 5 mg tablet 5 mg PO BID albuterol sulfate [Ventolin HFA] 90 mcg/actuation HFA aerosol inhaler 2 inh inhalation Q4H PRN (Reason: Shortness Of Breath Or Wheezing) pantoprazole 40 mg tablet,delayed release (DR/EC) 40 mg PO DAILY montelukast 10 mg tablet 10 mg PO BEDTIME atorvastatin 10 mg tablet 10 mg PO DAILY Qty: 30 0RF Interventions: Christian-Suicide Risk Severity Scale Last Done: 10/02/23 21:12
[2023-10-02 22:29] LABS: MANUAL DIFF FLAG NO
[2023-10-02 22:34] LABS: Basophils Absolute Auto 0.1 X10*3/uL (0.0-0.2); Basophils Percent Auto 0.6 % (0-2); Eosinophils Absolute Auto 0.2 X10*3/uL (0.0-0.4); Eosinophils Percent Auto 2.3 % (0-4); Hematocrit 32.5 % (37.0-47.0); Hemoglobin 10.6 g/dl (12.0-16.0); Imm Gran Abs Auto 0.05 X10*3/uL (0.00-0.03); Imm Gran Pct Auto 0.6 % (0.0-0.4); Lymphocytes Absolute Auto 1.7 X10*3/uL (1.2-4.9); Mean Corpuscular HGB Conc 32.6 g/dl (31.0-35.0); Mean Corpuscular Hemoglobin 27.9 pg (27.0-33.0); Mean Corpuscular Volume 85.5 fL (80.0-98.0); Mean Platelet Volume 9.4 fL (9.4-12.3); Monocytes Absolute Auto 0.7 X10*3/uL (0.1-1.2); Monocytes Percent Auto 8.2 % (2-11); Neutrophils Absolute Auto 6.3 x10*3/uL (2.0-8.3); Neutrophils Percent Auto 69.3 % (45-73); Platelet Count 305 X10*3/uL (160-400); Red Cell Distribution Width 13.6 % (11.0-16.0)
[2023-10-02 22:42] LABS: COVID-19 Test Negative (Negative); IDNOW Serial# BCCEAD1C
[2023-10-02 22:47] LABS: Amphetamine Screen Urine Not Detected (Not Detect); Barbiturates, Urine Not Detected (Not Detect); Benzodiazepines Screen Urine Not Detected (Not Detect); Cannabinoid Screen Urine Not Detected (Not Detect); Cocaine Screen Urine Not Detected (Not Detect); Fentanyl, urine Not Detected (Not Detect); Opiate Screen Urine Not Detected (Not Detect); Phencyclidine Screen Urine Not Detected (Not Detect)
[2023-10-02 22:49] LABS: Alanine Aminotransferase 12 U/L (0-31); Albumin Level 4.2 g/dL (3.5-5.0); Alkaline Phosphatase 110 U/L (39-117); Anion Gap 14 (12-20); Aspartate Amino Transferase 14 U/L (5-31); Bilirubin Direct < 0.2 mg/dL (0.0-0.5); Bilirubin Total 0.2 mg/dL (0.0-1.0); Blood Urea Nitrogen 11 mg/dL (9-16); Calcium 9.2 mg/dL (8.4-10.2); Carbon Dioxide 20 mmol/L (22-29); Chloride 105 mmol/L (96-108); Creatinine Clr Calc Pharmacy 98.2; Estimated Glomerular Filt Rate > 60; Glucose Random 178 mg/dL (60-115); Potassium 3.4 mmol/L (3.3-5.1); Sodium 136 mmol/L (135-145); Total Protein 7.4 g/dL (6.5-8.0)
[2023-10-02 22:51] LABS: Acetaminophen LAB < 3 mcg/mL (<30); Salicylate < 5.0 mg/dL (15-30)
--- NOTE | 2023-10-03 01:26 | PC.NURSE ---
pt sleeping with no sign of distress.
[2023-10-03 03:35] VITALS: BP 126/79; PULSE 83; RESP 17; TEMP 36.5; O2SAT 97
--- NOTE | 2023-10-03 05:36 | PC.NURSE ---
Pt is sleeping at this time unable to complete [place] scale and psychiatric assessment due to pt sleeping
[2023-10-03 12:17] VITALS: RESP 18
--- NOTE | 2023-10-03 12:18 | PC.NURSE ---
Lucita denies IS/HI/AVH. Advocating for DC and reporting she is going to use respite for the anniversary of her mothers to avoid calling 911 to take an ambulance to the ED. Appetite good. Belongings returned.
== END 2023-10-03 12:20 | disposition home or self-care (01) ==
PROVIDERS: Emergency Medicine; Emergency Provider Emergency Medicine Emergency Medical Services
DX: F33.1 Major depressive disorder, recurrent, moderate (principal); R45.851 Suicidal ideations; Z79.899 Other long term (current) drug therapy
CPT/HCPCS: 36415; 80048; 80076; 80143; 80179; 80307; 85025; 87635; 99285; S9485

== ENCOUNTER 2023-10-04 19:55 | Inpatient (IN) | payer MEDICARE, MEDICAID, SELFPAY ==
--- NOTE | 2023-10-04 | ECG_ITS ---
Test Reason : OD Blood Pressure : / mmHG Vent. Rate : 073 BPM Atrial Rate : 074 BPM P-R Int : 198 ms QRS Dur : 084 ms QT Int : 374 ms P-R-T Axes : 053 028 042 degrees QTc Int : 412 ms Normal sinus rhythm Normal ECG When compared with ECG of 17-SEP-2023 20:04, No significant change was found Referred By: Generic ED Physician Electronically Signed By:DONALD HOOKER MD
--- NOTE | 2023-10-04 20:09 | ED.PSYCH ---
HPI - Psych General Chief Complaint: Overdose Stated Complaint: TI OF CLONIDINE Time Seen by Provider: 10/04/23 20:04 Source: patient and EMS Mode of arrival: EMS Limitations: other (Somnolent) History of Present Illness HPI Narrative: Patient comes to the emergency room complaining of suicidal ideation/suicide attempt with clonidine. Patient states that she took approximately 20 tablets of clonidine. According to EMS, the clonidine tablets were mixed in a bottle, combination of 0.1 and 0.3 mg. [facility] emergency services called poison Control prior to patient's arrival, they recommended monitoring blood pressure and heart rate. Patient feels very somnolent, no headache, no chest pain or shortness of breath, no nausea vomiting or diarrhea. Patient states that she did not ingest any other medications. Patient has superficial cuts to the left forearm Related Data Home Medications Medication Instructions Recorded Confirmed trazodone 150 mg tablet 150 mg PO BEDTIME 06/15/23 09/23/23 benztropine 1 mg tablet 1 mg PO BID 08/25/23 09/23/23 buspirone 10 mg tablet 10 mg PO BID 08/25/23 09/23/23 fluoxetine 40 mg capsule 80 mg PO DAILY 08/25/23 09/23/23 lisinopril 5 mg tablet 5 mg PO DAILY 08/25/23 09/23/23 mirtazapine 7.5 mg tablet 7.5 mg PO BEDTIME 08/25/23 09/23/23 prazosin 2 mg capsule 4 mg PO BEDTIME 08/25/23 09/23/23 fluticasone 100 mcg-salmeterol 50 1 ea inhalation BID 08/31/23 09/23/23 mcg/dose blistr powdr for inhalation (Advair Diskus) lorazepam 0.5 mg tablet 0.5 mg PO DAILY PRN Anxiety 08/31/23 09/23/23 albuterol sulfate 90 mcg/actuation 2 inh inhalation Q4H PRN Shortness 09/17/23 09/23/23 aerosol inhaler (Ventolin HFA) Of Breath Or Wheezing famotidine 10 mg tablet 10 mg PO BID@0630,1630 09/17/23 09/23/23 fluphenazine HCl 5 mg tablet 5 mg PO BID 09/17/23 09/23/23 lamotrigine 25 mg tablet 25 mg PO DAILY 09/17/23 09/23/23 metformin 500 mg tablet 500 mg PO BIDWM 09/17/23 09/23/23 montelukast 10 mg tablet 10 mg PO BEDTIME 09/17/23 09/23/23 pantoprazole 40 mg tablet,delayed 40 mg PO DAILY 09/17/23 09/23/23 release Previous Rx's Medication Instructions Recorded atorvastatin 10 mg tablet 10 mg PO DAILY #30 tabs 09/21/23 Allergies Allergy/AdvReac Type Severity Reaction Status Date / Time azithromycin [AZITHROMYCIN] Allergy Severe Rash Verified 09/16/23 21:31 Fish Containing Products Allergy Severe Anaphylaxis Verified 09/16/23 21:31 codeine [Codeine] Allergy Intermediate Rash Verified 09/16/23 21:31 Penicillins Allergy Intermediate Rash Verified 09/16/23 21: prednisone [Prednisone] Allergy Intermediate Rash Verified 09/16/23 21:31 Sulfa (Sulfonamide Allergy Intermediate Rash Verified 09/16/23 21:31 Antibiotics) [Sulfa (Sulfonamides)] ziprasidone [From Geodon] Allergy Intermediate dysuria, Verified 09/16/23 21:31 rash Review of Systems Review of Systems: Constitutional : No Weight loss, No Fever, No Chills, No Night Sweats, No Fatigue, No Malaise ENT/Mouth : No Hearing loss, No Ear Pain, No Nasal Congestion, No Sinus Pain, No Hoarseness, No sore throat, No Rhinorrhea, No Swallowing Difficulty Eyes: No Eye Pain, No Swelling, No Redness, No Foreign Body, No Discharge, No Vision Changes Cardiovascular : No Chest Pain, No SOB, No Dyspnea on Exertion, No Orthopnea, No Edema, No Palpitations Respiratory : No Cough, No Sputum, No Wheezing, No Smoke Exposure, No Dyspnea Gastrointestinal : No Nausea, No Vomiting, No Diarrhea, No Constipation, No abdominal Pain, No Hematochezia, No Melena Genitourinary : no irregular bleeding, No Dysuria, No Urinary Frequency, No Hematuria, No Urinary Incontinence, No Urgency, No Flank Pain, No Urinary Flow Changes, No Hesitancy Musculoskeletal : No joint pain, No Myalgias, No Joint Swelling Skin : No Skin Lesions, No rash Neuro : No Weakness, No Numbness, No Paresthesias, No Loss of Consciousness, No Dizziness, No Headache Psych : Complaining of depression, suicide attempt Heme/Lymph: No Bruising, No Bleeding,No Lymphadenopathy Endocrine : No Polyuria, No Polydipsia, No Temperature Intolerance [facility] Past Medical History Medical History Chest pain Acute anxiety COVID-19 Full body hives Major depression Dizziness Suicide attempt UTI (urinary tract infection) Acetaminophen overdose COVID History of attempted suicide History of non-suicidal self-harm Hypomagnesemia Suicide attempt Suicide attempt by acetaminophen overdose Acetaminophen overdose Depression MDD (major depressive disorder), recurrent episode, severe Diabetes type 2, controlled Borderline personality disorder PTSD (post-traumatic stress disorder) Overdose GERD (gastroesophageal reflux disease) Mood disorder Hyperlipidemia Bronchitis Social History Social History Household Members: None Household Members Other:: [facility] Housing: Other Housing Other:: [facility] housing Do you presently have visiting nurse or other home services: Yes Unable to assess alcohol history related to: Unknown Alcohol intake: current Alcohol intake frequency: does not drink Comment: 1:1 sitter Patient Tobacco Use Status: Current everyday Tobacco user Tobacco use type: Cigarette Cigarette Packs Per Day: 0.5 Cigarettes Per Day: 10.0 Years Smoked: 22 Smoked in Last 30 Days: No e-Cigarette/Vaping Use: Never Used Second Hand Smoke Exposure: No Use of substances other than those prescribed or required for medical reasons: No Substance Use Type: Marijuana Advance Directives: No Advance Directives Information Provided: No Patient : No service: No Current occupational status: unemployed and disabled Sexual orientation: Straight/Heterosexual Physical Exam Vital Signs: Vital Signs: Last Vital Signs Temp 98.0 F 10/04/23 22:33 Pulse 69 10/04/23 22:33 Resp 16 10/04/23 22:33 BP 126/82 10/04/23 22:33 Pulse Ox 100 10/04/23 22:33 O2 Del Method Room Air 10/04/23 22:33 O2 Flow Rate 1 10/04/23 20:39 Oxygen Flow Rate 1 10/04/23 20:10 BMI result Body Mass Index 39.5 Const: Other: Appearance: Alert. Oriented X3. Patient somnolent, easily arousable, answering questions appropriately Eyes: Pupils equal, round and reactive to light. ENT: Pharynx normal. Neck: Normal inspection. Neck supple. No lymph nodes noted. No crepitus CVS: Normal heart rate and rhythm. Pulses normal. Normal S1 and S2 Respiratory: No respiratory distress. Breath sounds normal. No Wheezing. No rales Abdomen: Soft and nontender. No rigidity. No distention. Skin: Skin warm and dry. Normal skin color. Normal skin turgor. Extremities: No lower extremity edema. No Lacerations. No Rash Neuro: Oriented X 3. No motor deficit. No sensory deficit. Moving all extremities. No slurred speech. CN 2 through 12 grossly intact Psych: calm, cooperative, confirms that she feels suicidal Course Course Course Narrative: -all of patient's labs pending -patient is on a Section 12 -care team consult will be requested after patient is medically cleared Medical Decision Making Medical Decision Making [facility] Narrative: -my interpretation of EKG: Normal sinus rhythm, heart rate 73, no ST segment depression or elevation, no T-wave inversion, QTC 412 -my interpretation of labs: Normal Hematology, at baseline, chemistry was negative, LFTs normal, troponin negative, lipase normal, hCG negative urinalysis pending, salicylate level negative, acetaminophen level negative, ETOH negative -patient remains on a Section 12, care team consult pending -patient's heart rate 69, blood pressure 144/87, O2 99% -poison control recommended EKG q.2 hours x3 times -patient's vitals remained stable, blood pressure in the 140s, heart rate in the 70s. Patient remains very somnolent but easily arousable but falls back asleep. -poison Control also recommended observation for 24 hours before medical clearance. -I discussed the patient with Dr. Jacobsen, patient being admitted/observation -patient will need to be on a one-to-one, patient is on a Section 12, will need psychiatry consult/care team consult Differential Diagnosis Differential Diagnoses: The differential diagnosis associated with the presentation includes (Anxiety, depression, clonidine overdose) Admission/Observation Consideration of admission/observation: Escalation of care including admission/observation considered Consult Healthcare Provider Management of the patient was discussed with: Hospitalist Lab Data [facility] Lab Attestation statement: I reviewed the patient's lab results. 10/04/23 20:36 10/04/23 20:36 Labs: Lab Results 10/04/23 10/04/23 10/04/23 Range/Units 20:36 20:38 21:18 WBC 9.4 (4.8-10.8) X10*3/uL RBC 3.61 L (4.20-5.50) X10*6/uL Hgb 10.1 L (12.0-16.0) g/dl Hct 31.0 L (37.0-47.0) % MCV 85.9 (80.0-98.0) fL MCH 28.0 (27.0-33.0) pg MCHC 32.6 (31.0-35.0) g/dl RDW 13.5 (11.0-16.0) % Plt Count 288 (160-400) X10*3/uL MPV 9.7 (9.4-12.3) fL Absolute Nucleated RBC 0.000 (0.0-0.012) X10*3/uL Nucleated RBC % (auto) 0.0 (0.0-0.2) /100WBC PT 11.6 (11.1-13.3) SEC INR 1.0 (0.9-1.1) VBG pH 7.48 H (7.32-7.43) VBG pCO2 29 mmHg VBG pO2 89 mmHg VBG HCO3 22 (22-26) mmol/L VBG O2 Saturation 99.0 % VBG Base Excess -0.4 mmol/L Sodium 138 (135-145) mmol/L Potassium 4.1 D (3.3-5.1) mmol/L Chloride 108 (96-108) mmol/L Carbon Dioxide 22 (22-29) mmol/L Anion Gap 12 (12-20) BUN 18 H (9-16) mg/dL Creatinine 0.97 (0.5-1.4) mg/dL Estim Creat Clear Calc 86.1 Estimated GFR > 60 Random Glucose 152 H (60-115) mg/dL Calcium 8.6 D (8.4-10.2) mg/dL Magnesium 1.8 (1.6-2.6) mg/dL Total Bilirubin 0.1 (0.0-1.0) mg/dL Direct Bilirubin < 0.2 (0.0-0.5) mg/dL AST 14 (5-31) U/L ALT 9 (0-31) U/L Alkaline Phosphatase 103 (39-117) U/L Troponin I High Sens < 2.7 (<3.5-17.0) ng/L Total Protein 6.7 (6.5-8.0) g/dL Albumin 3.9 (3.5-5.0) g/dL Lipase 18 (8-78) U/L Beta HCG, Quant < 2 mIU/mL Salicylates < 5.0 L (15-30) mg/dL Urine Opiates Screen Not Detected (Not Detect) Urine Fentanyl Screen Not Detected (Not Detect) Acetaminophen < 3 (<30) mcg/mL Ur Barbiturates Screen Not Detected (Not Detect) Ur Phencyclidine Scrn Not Detected (Not Detect) Ur Amphetamines Screen Not Detected (Not Detect) U Benzodiazepines Scrn Not Detected (Not Detect) Urine Cocaine Screen Not Detected (Not Detect) U Marijuana (THC) Screen Not Detected (Not Detect) Ethyl Alcohol < 10 mg/dL Independent Interpretation I performed an independent interpretation of an: EKG Critical Care Time Critical Care Time Critical Care Time: Yes Total Critical Care Time: 75 Attestation: I have personally provided critical care time. Time includes review of lab data, radiology results, discussion with consultants, and monitoring for potential decompensation. Intervention performed as documented. Discharge Plan Discharge Clinical Impression: Clonidine overdose, Suicide attempt Patient Disposition: Admitted as Observation Prescriptions: No Action trazodone 150 mg tablet 150 mg PO BEDTIME fluoxetine 40 mg capsule 80 mg PO DAILY buspirone 10 mg tablet 10 mg PO BID benztropine 1 mg tablet 1 mg PO BID lisinopril 5 mg tablet 5 mg PO DAILY prazosin 2 mg capsule 4 mg PO BEDTIME mirtazapine 7.5 mg tablet 7.5 mg PO BEDTIME fluticasone propion-salmeterol [Advair Diskus] 100-50 mcg/dose blister with device 1 ea inhalation BID lorazepam 0.5 mg tablet 0.5 mg PO DAILY PRN (Reason: Anxiety) metformin 500 mg Tablet 500 mg PO BIDWM famotidine 10 mg Tablet 10 mg PO BID@0630,1630 lamotrigine 25 mg Tablet 25 mg PO DAILY Rx Instructions: TAKE 25 MG DAILY FROM 09/16 THROUGH 09/30 fluphenazine HCl 5 mg tablet 5 mg PO BID albuterol sulfate [Ventolin HFA] 90 mcg/actuation HFA aerosol inhaler 2 inh inhalation Q4H PRN (Reason: Shortness Of Breath Or Wheezing) pantoprazole 40 mg tablet,delayed release (DR/EC) 40 mg PO DAILY montelukast 10 mg tablet 10 mg PO BEDTIME atorvastatin 10 mg tablet 10 mg PO DAILY Qty: 30 0RF
[2023-10-04 20:10] VITALS: BP 149/89; BP 159/98; PULSE 71; PULSE 74; RESP 19; TEMP 36.7; O2SAT 96; O2SAT 97; BMI 39.5
--- NOTE | 2023-10-04 20:30 | PC.NURSE ---
.Patient brought in by ambulance from patient's friend house where Lucita took approximately 20 tabs of Clonidine. Patient arrived to ED somnolent, but awakens to verbal stimulus and answers questions appropriately. VSS, HR 66-88, normal sinus rhythm. EKG completed, quality assurance monitor final applied, labs drawn and sent to lab for processing. Patient admits SI with plan to overdose on medications. Pateint changed over in a pod attire, 1:1 sitter at bedside, call thomas within patient's reach.
[2023-10-04 20:39] VITALS: BP 147/88; PULSE 69; RESP 18; TEMP 36.8; O2SAT 99
--- NOTE | 2023-10-04 20:41 | MHC.EDTECH ---
Patient was biba from home ,ekg taken and was read by Provider ,vitals taken ,Patient was hooked up to personal care attendant ,Patient was change into (green gown ) All Patient belongings are locked up in locker # 10 in Pod ,blood drawn and sent to lab ,Patient currently sleepings ,Breaths are even and unlabored ,1:1 Patient Observer at bedside ,Will continue to monitor .
[2023-10-04 20:42] LABS: Hemoglobin 10.1 g/dl (12.0-16.0); Mean Corpuscular HGB Conc 32.6 g/dl (31.0-35.0); Mean Corpuscular Volume 85.9 fL (80.0-98.0); Mean Platelet Volume 9.7 fL (9.4-12.3); Platelet Count 288 X10*3/uL (160-400); Red Blood Count 3.61 X10*6/uL (4.20-5.50); Red Cell Distribution Width 13.5 % (11.0-16.0); White Blood Count 9.4 X10*3/uL (4.8-10.8)
[2023-10-04 20:44] LABS: VBG Base Excess -0.4 mmol/L; VBG HCO3 22 mmol/L (22-26); VBG pCO2 29 mmHg; VBG pH 7.48 (7.32-7.43); VBG pO2 89 mmHg
[2023-10-04 20:44] LABS: Venous Blood Gas Refer to POC result
[2023-10-04 20:48] LABS: Prothrombin Time 11.6 SEC (11.1-13.3)
[2023-10-04 21:02] LABS: Acetaminophen LAB < 3 mcg/mL (<30); Salicylate < 5.0 mg/dL (15-30)
[2023-10-04 21:09] LABS: Alanine Aminotransferase 9 U/L (0-31); Albumin Level 3.9 g/dL (3.5-5.0); Alkaline Phosphatase 103 U/L (39-117); Anion Gap 12 (12-20); Aspartate Amino Transferase 14 U/L (5-31); Bilirubin Direct < 0.2 mg/dL (0.0-0.5); Bilirubin Total 0.1 mg/dL (0.0-1.0); Blood Urea Nitrogen 18 mg/dL (9-16); Calcium 8.6 mg/dL (8.4-10.2); Carbon Dioxide 22 mmol/L (22-29); Chloride 108 mmol/L (96-108); Creatinine Clr Calc Pharmacy 86.1; Estimated Glomerular Filt Rate > 60; Ethanol < 10 mg/dL; Glucose Random 152 mg/dL (60-115); HCG Quantitative < 2 mIU/mL; Lipase 18 U/L (8-78); Magnesium 1.8 mg/dL (1.6-2.6); Potassium 4.1 mmol/L (3.3-5.1); Sodium 138 mmol/L (135-145); Total Protein 6.7 g/dL (6.5-8.0); Troponin-I High Sensitivity < 2.7 ng/L (<3.5-17.0)
--- NOTE | 2023-10-04 21:13 | MHC.EDTECH ---
Patient was assisted unto bedside commode ,void ,also was incontinent of urine ,care given ,gown change ,urine sample collected and sent to lab ,Patient was assisted back to bed ,and re connected back to wood finisher .
--- NOTE | 2023-10-04 21:15 | PC.NURSE ---
This RN [facility], spoke to Jaimie who instructed this RN to provide supportive care to patient, keep her 24 hours for observation. Complete EKG Q 2hr x3 times. If patient will become bradycardic or present with symptoms of respiratory distress to administer Narcan and fluids. Dr. Ryan notified of above.
[2023-10-04 21:32] LABS: Amphetamine Screen Urine Not Detected (Not Detect); Barbiturates, Urine Not Detected (Not Detect); Benzodiazepines Screen Urine Not Detected (Not Detect); Cannabinoid Screen Urine Not Detected (Not Detect); Cocaine Screen Urine Not Detected (Not Detect); Fentanyl, urine Not Detected (Not Detect); Opiate Screen Urine Not Detected (Not Detect); Phencyclidine Screen Urine Not Detected (Not Detect)
[2023-10-04 22:33] VITALS: BP 126/82; PULSE 69; RESP 16; TEMP 36.7; O2SAT 100
--- NOTE | 2023-10-04 22:33 | MHC.EDTECH ---
Rounding done ,vitals taken ,pt sleeping ,breaths are even and unlabored ,Patient Observer at bedside ,will continue to monitor .
--- NOTE | 2023-10-04 22:45 | ECG_ITS ---
Test Reason : overdosed Blood Pressure : / mmHG Vent. Rate : 070 BPM Atrial Rate : 070 BPM P-R Int : 210 ms QRS Dur : 084 ms QT Int : 402 ms P-R-T Axes : 054 048 050 degrees QTc Int : 434 ms Sinus rhythm with 1st degree A-V block Otherwise normal ECG When compared with ECG of 04-OCT-2023 20:04, No significant change was found Referred By: Eileen Ryan Electronically Signed By:DONALD HOOKER MD
--- NOTE | 2023-10-04 22:48 | MHC.CARE ---
Pt will be assessed by the CARE team in the morning after her 24 hour monitoring protocol is over with.
--- NOTE | 2023-10-04 22:55 | PM.IMHP ---
History of Present Illness Date of Service: 10/04/23 Chief Complaint: Overdose This is a 47-year-old female with pertinent history of mood disorder, mixed hyperlipidemia, essential hypertension, qso-[id number] diabetes mellitus presents to the emergency department after a suicide attempt. Patient is very somnolent at the time of my evaluation. She is drowsy and awakens to verbal stimulus but falls back asleep after conversation. States she took about 20 tablets of clonidine prior to arrival. As per EMS, the bottle had 0.1 and 0.3 mg tablets of clonidine. Poison Control was contacted in the ER who recommended 24 hours observation. Patient denies chest pain, dizziness. No fever, chills, shortness of breath, palpitations, abdominal pain, changes in urinary or bowel habits. Review of Systems Constitutional: Constitutional: Reports no additional constitutional complaints Cardiovascular: Cardiovascular: Reports no additional cardiovascular complaints Respiratory: Respiratory: Reports no additional respiratory complaints Gastrointestinal: Gastrointestinal: Reports no additional gastrointestinal complaints Genitourinary: Genitourinary: Reports no additional female genitourinary complaints PMFSH Medical History Chest pain Acute anxiety COVID-19 Full body hives Major depression Dizziness Suicide attempt UTI (urinary tract infection) Acetaminophen overdose COVID History of attempted suicide History of non-suicidal self-harm Hypomagnesemia Suicide attempt Suicide attempt by acetaminophen overdose Acetaminophen overdose Depression MDD (major depressive disorder), recurrent episode, severe Diabetes type 2, controlled Borderline personality disorder PTSD (post-traumatic stress disorder) Overdose GERD (gastroesophageal reflux disease) Mood disorder Hyperlipidemia Bronchitis Social History Household Members: None Household Members Other:: [facility] Housing: Other Housing Other:: [facility] housing Do you presently have visiting nurse or other home services: Yes Unable to assess alcohol history related to: Unknown Alcohol intake: current Alcohol intake frequency: does not drink Comment: 1:1 sitter Patient Tobacco Use Status: Current everyday Tobacco user Tobacco use type: Cigarette Cigarette Packs Per Day: 0.5 Cigarettes Per Day: 10.0 Years Smoked: 22 Smoked in Last 30 Days: No e-Cigarette/Vaping Use: Never Used Second Hand Smoke Exposure: No Use of substances other than those prescribed or required for medical reasons: No Substance Use Type: Marijuana Advance Directives: No Advance Directives Information Provided: No Patient : No service: No Current occupational status: unemployed and disabled Sexual orientation: Straight/Heterosexual Meds Allergies Allergy/AdvReac Type Severity Reaction Status Date / Time azithromycin [AZITHROMYCIN] Allergy Severe Rash Verified 09/16/23 21:31 Fish Containing Products Allergy Severe Anaphylaxis Verified 09/16/23 21:31 codeine [Codeine] Allergy Intermediate Rash Verified 09/16/23 21:31 Penicillins Allergy Intermediate Rash Verified 09/16/23 21:31 prednisone [Prednisone] Allergy Intermediate Rash Verified 09/16/23 21:31 Sulfa (Sulfonamide Allergy Intermediate Rash Verified 09/16/23 21:31 Antibiotics) [Sulfa (Sulfonamides)] ziprasidone [From Geodon] Allergy Intermediate dysuria, Verified 09/16/23 21:31 rash Active Medications: Current Medications Sodium Chloride (0.9 % Sodium Chloride Flush 3 Ml Syringe) 3 ml IVFLUSH [facility] Home Medications Medication Instructions Recorded Confirmed Last Taken Type trazodone 150 mg tablet 150 mg PO BEDTIME 06/15/23 09/23/23 09/22/23 20:00 History benztropine 1 mg tablet 1 mg PO BID 08/25/23 09/23/23 09/22/23 20:00 History buspirone 10 mg tablet 10 mg PO BID 08/25/23 09/23/23 09/22/23 19:00 History fluoxetine 40 mg capsule 80 mg PO DAILY 08/25/23 09/23/23 09/22/23 09:00 History lisinopril 5 mg tablet 5 mg PO DAILY 08/25/23 09/23/23 09/22/23 08:00 History mirtazapine 7.5 mg tablet 7.5 mg PO BEDTIME 08/25/23 09/23/23 09/21/23 20:00 History prazosin 2 mg capsule 4 mg PO BEDTIME 08/25/23 09/23/23 09/22/23 20:00 History fluticasone 100 mcg-salmeterol 50 1 ea inhalation BID 08/31/23 09/23/23 09/22/23 17:00 History mcg/dose blistr powdr for inhalation (Advair Diskus) lorazepam 0.5 mg tablet 0.5 mg PO DAILY PRN Anxiety 08/31/23 09/23/23 Unknown History albuterol sulfate 90 mcg/actuation 2 inh inhalation Q4H PRN Shortness 09/17/23 09/23/23 Unknown History aerosol inhaler (Ventolin HFA) Of Breath Or Wheezing famotidine 10 mg tablet 10 mg PO BID@0630,1630 09/17/23 09/23/23 09/22/23 16:30 History fluphenazine HCl 5 mg tablet 5 mg PO BID 09/17/23 09/23/23 09/22/23 17:00 History lamotrigine 25 mg tablet 25 mg PO DAILY 09/17/23 09/23/23 09/22/23 08:00 History metformin 500 mg tablet 500 mg PO BIDWM 09/17/23 09/23/23 09/22/23 17:00 History montelukast 10 mg tablet 10 mg PO BEDTIME 09/17/23 09/23/23 09/21/23 20:00 History pantoprazole 40 mg tablet,delayed 40 mg PO DAILY 09/17/23 09/23/23 09/22/23 07:00 History release Physical Exam Vital Signs and Narrative: Vital Signs: Last Vital Signs Temp 98.0 F 10/04/23 22:33 Pulse 69 10/04/23 22:33 Resp 16 10/04/23 22:33 BP 126/82 10/04/23 22:33 Pulse Ox 100 10/04/23 22:33 O2 Del Method Room Air 10/04/23 22:33 O2 Flow Rate 1 10/04/23 20:39 Oxygen Flow Rate 1 10/04/23 20:10 BMI result Body Mass Index 39.5 Middle-aged female lying in bed in no distress Neck supple, no JVD Regular rate and rhythm, S1-S2 heard Regular breath sounds bilaterally, no wheezing or crackles appreciated Abdomen soft nontender, no guarding, no rigidity Patient is drowsy but awakens to verbal stimulus, oriented to self, place when conversational ; no focal motor deficit Psych: Somnolent No pedal edema Results Labs 10/04/23 20:36 10/04/23 20:36 Labs: Laboratory Results - last 24 hr 10/04/23 10/04/23 10/04/23 20:36 20:38 21:18 MCV 85.9 MCH 28.0 MCHC 32.6 RDW 13.5 Plt Count 288 MPV 9.7 Absolute Nucleated RBC 0.000 Nucleated RBC % (auto) 0.0 PT 11.6 INR 1.0 VBG pH 7.48 H VBG pCO2 29 VBG pO2 89 VBG HCO3 22 VBG O2 Saturation 99.0 VBG Base Excess -0.4 Anion Gap 12 Estim Creat Clear Calc 86.1 Estimated GFR > 60 Random Glucose 152 H Calcium 8.6 D Magnesium 1.8 Total Bilirubin 0.1 Direct Bilirubin < 0.2 AST 14 ALT 9 Alkaline Phosphatase 103 Total Protein 6.7 Albumin 3.9 Lipase 18 Beta HCG, Quant < 2 Salicylates < 5.0 L Urine Opiates Screen Not Detected Urine Fentanyl Screen Not Detected Acetaminophen < 3 Ur Barbiturates Screen Not Detected Ur Phencyclidine Scrn Not Detected Ur Amphetamines Screen Not Detected U Benzodiazepines Scrn Not Detected Urine Cocaine Screen Not Detected U Marijuana (THC) Screen Not Detected Ethyl Alcohol < 10 Assessment and Plan (1) Clonidine overdose: Status: Acute (2) Suicide attempt: Status: Acute Plan This is a 47-year-old female with pertinent history of mood disorder, mixed hyperlipidemia, essential hypertension, jpy-sohgvop-rfxvklrst diabetes mellitus presents to the emergency department after a suicide attempt. #. Clonidine overdose: Will admit patient with cardiac monitoring for 24 hour observation as per poison Control. Continue to monitor hemodynamics. Supportive care #. Acute toxic encephalopathy in the setting of above #. Suicidal attempt: Consult placed for sitter. Psychiatry to eval #. Ubx-ttpqupr-[id number] diabetes mellitus: Initiating Accu-Cheks with sliding scale insulin #. Mood disorder: Psych to optimize #. Mixed hyperlipidemia: On statin #. Essential hypertension: Resume p.o. antihypertensives once stable after 24 hour observation Med rec pending DVT prophylaxis: Lovenox Full code Quality Stroke Does the patient have a stroke diagnosis?: No VTE Prior VTE?: No VTE Risk Level:: Medical - moderate - high VTE Device Contraindication: Treatment Not Indicated VTE Drug Contraindication: N/A - Med Ordered
[2023-10-04 23:11] VITALS: BP 122/80; PULSE 78; RESP 16; TEMP 36.3; O2SAT 95
--- NOTE | 2023-10-04 23:14 | MHC.EDTECH ---
Patient 2nd ekg taken and was read by Provider ,vitals taken ,Patient sleeping ,but easy arouseble ,Patient Observer at bedside .
[2023-10-04] MEDS: Enoxaparin Sodium 40 MG/0.4 ML SYRINGE SUBCUT (23:38)
--- NOTE | 2023-10-05 00:45 | ECG_ITS ---
Test Reason : OD Blood Pressure : / mmHG Vent. Rate : 064 BPM Atrial Rate : 064 BPM P-R Int : 218 ms QRS Dur : 084 ms QT Int : 408 ms P-R-T Axes : 042 047 047 degrees QTc Int : 420 ms Sinus rhythm with 1st degree A-V block Otherwise normal ECG When compared with ECG of 04-OCT-2023 23:07, No significant change was found Referred By: Eileen Ryan Electronically Signed By:DONALD HOOKER MD
[2023-10-05 01:11] VITALS: BP 124/59; PULSE 65; RESP 19; TEMP 36.3; O2SAT 97
[2023-10-05] MEDS: 0.9 % Sodium Chloride Flush 3 ML SYRINGE IVFLUSH (01:40)
[2023-10-05 08:00] VITALS: BP 181/81; PULSE 67; RESP 16; TEMP 37; O2SAT 95
--- NOTE | 2023-10-05 08:50 | PHA.MEDREC ---
Pharmacy Consult ? Medication Reconciliation Pharmacy has completed the medication reconciliation. Patient only knew some meds. Poor historian. Called patient's pharmacy and confirmed buspirone which patient wasn't sure about. Patient recently discharged from this facility, utilized discharge home meds to help confirm meds.
--- NOTE | 2023-10-05 09:18 | MHC.CM.PN ---
This CM went in room to meet with pt who was soundly asleep, unable to wake up at this time. CM will reattempt to meet with pt later today.
--- NOTE | 2023-10-05 09:34 | P.PNIM_ITS ---
Subjective Subjective Date of Service: 10/05/23 Interval History: tired, otherwise no complaints Physical Exam 2 Vital Signs: Vital Signs: Last Vital Signs Temp 97.3 F 10/05/23 01:11 Pulse 65 10/05/23 01:11 Resp 19 10/05/23 01:11 BP 124/59 L 10/05/23 01:11 Pulse Ox 97 10/05/23 01:11 O2 Del Method Nasal Cannula 10/05/23 01:11 O2 Flow Rate 1 10/05/23 01:11 Oxygen Flow Rate 1 10/04/23 20:10 BMI result Body Mass Index 39.5 General: AO X 3, no acute distress Resp: CTA bilateral, no accessory muscles used CVS: S1,S2,RRR GI: soft, non tender, non distended Neuro: motor grossly intact, alert Psych: appropriate affect, appropriate insight Objective Data Active Medications Acetaminophen (Acetaminophen 325 Mg Tablet) 650 mg PO Q6H PRN PRN Reason: Pain, Mild (Pain Scale 1-3) Dextrose (Dextrose 50 % 25 Gm/50 Ml Syringe) 25 gm IVPUSH Q15M PRN; Protocol PRN Reason: per Hypoglycemia Standing Ord. Enoxaparin Sodium (Enoxaparin Sodium 40 Mg/0.4 Ml Syringe) 40 mg SUBCUT Q24H [facility] Last Admin: 10/04/23 23:38 Dose: 40 mg Documented By: MASHA Glucose (Glucose Gel 15 Gm Gel..Gram.) 15 gm PO Q15M PRN; Protocol PRN Reason: per Hypoglycemia Standing Ord. Insulin Human Lispro (Insulin Lispro 100 Unit/Ml 3 Ml Vial) 0 unit SUBCUT QIDACHS [facility]; Protocol Last Admin: 10/05/23 08:00 Dose: Not Given Documented By: MJ Non-Admin Reason: ptrefusing poc Melatonin (Melatonin 3 Mg Tablet) 6 mg PO BEDTIME PRN PRN Reason: Insomnia Ondansetron HCl (Ondansetron Hcl 4 Mg/2 Ml Vial) 4 mg IVPUSH Q8H PRN PRN Reason: Nausea and Vomiting Sodium Chloride (0.9 % Sodium Chloride Flush 3 Ml Syringe) 3 ml IVFLUSH QSHIFT [facility] Last Admin: 10/05/23 07:29 Dose: Not Given Documented By: MJ Non-Admin Reason: See Note Labs 10/04/23 20:36 12/21/23 20:36 Labs: Laboratory Results - last 24 hr 10/04/23 10/04/23 10/04/23 20:36 20:38 21:18 MCV 85.9 MCH 28.0 MCHC 32.6 RDW 13.5 Plt Count 288 MPV 9.7 Absolute Nucleated RBC 0.000 Nucleated RBC % (auto) 0.0 PT 11.6 INR 1.0 VBG pH 7.48 H VBG pCO2 29 VBG pO2 89 VBG HCO3 22 VBG O2 Saturation 99.0 VBG Base Excess -0.4 Anion Gap 12 Estim Creat Clear Calc 86.1 Estimated GFR > 60 Random Glucose 152 H Calcium 8.6 D Magnesium 1.8 Total Bilirubin 0.1 Direct Bilirubin < 0.2 AST 14 ALT 9 Alkaline Phosphatase 103 Total Protein 6.7 Albumin 3.9 Lipase 18 Beta HCG, Quant < 2 Salicylates < 5.0 L Urine Opiates Screen Not Detected Urine Fentanyl Screen Not Detected Acetaminophen < 3 Ur Barbiturates Screen Not Detected Ur Phencyclidine Scrn Not Detected Ur Amphetamines Screen Not Detected U Benzodiazepines Scrn Not Detected Urine Cocaine Screen Not Detected U Marijuana (THC) Screen Not Detected Ethyl Alcohol < 10 Assessment and Plan (1) Suicide attempt: Status: Acute Plan 47F PMH mood disorder, hld, htn, dm, presented with suicide attempt with clonidine overdose depression with suicide attempt, clonidine overdose continue observation 24hrs, follow up tox care team once cleared dm insulin hld statin htn holding bp meds for low normal bp dvt prophylaxis - lovenox full code reason for continued hospitalization:24hr observation for tox Quality Stroke Does the patient have a stroke diagnosis?: No VTE Prior VTE?: No VTE Risk Level:: Medical - moderate - high VTE Device Contraindication: Treatment Not Indicated VTE Drug Contraindication: N/A - Med Ordered
[2023-10-05] MEDS: lisinopriL 5 MG TABLET PO (10:00)
--- NOTE | 2023-10-05 10:00 | MHC.CARE ---
Please consult team when medically cleared for assessment.
[2023-10-05 10:33] LABS: Glucose, Whole Blood 172 mg/dL (60-115)
[2023-10-05 10:51] LABS: Basophils Percent Auto 0.4 % (0-2); Eosinophils Absolute Auto 0.2 X10*3/uL (0.0-0.4); Eosinophils Percent Auto 2.7 % (0-4); Hematocrit 30.8 % (37.0-47.0); Hemoglobin 10.1 g/dl (12.0-16.0); Imm Gran Abs Auto 0.05 X10*3/uL (0.00-0.03); Imm Gran Pct Auto 0.7 % (0.0-0.4); Lymphocytes Absolute Auto 1.2 X10*3/uL (1.2-4.9); Lymphocytes Percent Auto 17.2 % (20-40); Mean Corpuscular HGB Conc 32.8 g/dl (31.0-35.0); Mean Corpuscular Hemoglobin 28.7 pg (27.0-33.0); Mean Corpuscular Volume 87.5 fL (80.0-98.0); Mean Platelet Volume 10.3 fL (9.4-12.3); Monocytes Absolute Auto 0.6 X10*3/uL (0.1-1.2); Monocytes Percent Auto 8.2 % (2-11); Neutrophils Absolute Auto 4.8 x10*3/uL (2.0-8.3); Neutrophils Percent Auto 70.8 % (45-73); Platelet Count 262 X10*3/uL (160-400); Red Blood Count 3.52 X10*6/uL (4.20-5.50); Red Cell Distribution Width 13.6 % (11.0-16.0); White Blood Count 6.7 X10*3/uL (4.8-10.8)
[2023-10-05] MEDS: Insulin Lispro 100 UNIT/ML 3 ML VIAL SUBCUT ×2 (11:12→21:33)
[2023-10-05 12:00] VITALS: BP 147/70; PULSE 68; RESP 15; TEMP 36.6; O2SAT 94
--- NOTE | 2023-10-05 15:32 | MHC.CM.PN ---
NUÑEZ 10/05. Pt lives at the [facility], plan is to return there upon D/C. Pt is self-care. Pt will need assistance with transportation. NO HCP, pt declined at this time. PCP: Dr. Maribel Marquez
[2023-10-05 15:37] VITALS: BP 137/77; PULSE 68; RESP 16; TEMP 36.4; O2SAT 97
[2023-10-05 15:38] LABS: Anion Gap 13 (12-20); Blood Urea Nitrogen 14 mg/dL (9-16); Carbon Dioxide 22 mmol/L (22-29); Chloride 108 mmol/L (96-108); Estimated Glomerular Filt Rate > 60; Glucose Random 130 mg/dL (60-115); Potassium 3.8 mmol/L (3.3-5.1); Sodium 139 mmol/L (135-145)
[2023-10-05] MEDS: Famotidine 20 MG TABLET 10 MG PO (16:25)
[2023-10-05 19:37] VITALS: BP 129/77; PULSE 64; RESP 18; TEMP 36.6; O2SAT 97
[2023-10-05 20:42] LABS: Glucose, Whole Blood 211 mg/dL (60-115)
[2023-10-05] MEDS: fluPHENAZine HCl 5 MG TABLET PO (21:17)
[2023-10-05] MEDS: Montelukast Sodium 10 MG TABLET PO (21:17)
[2023-10-05] MEDS: Mirtazapine 7.5 MG TABLET PO (21:17)
[2023-10-05] MEDS: Prazosin HCL 1 MG CAPSULE 4 MG PO (21:17)
[2023-10-05] MEDS: traZODone HCL 50 MG TABLET 150 MG PO (21:17)
[2023-10-05] MEDS: busPIRone HCl 10 MG TABLET PO (21:17)
[2023-10-05] MEDS: Benztropine Mesylate 1 MG TABLET PO (21:17)
[2023-10-05 23:14] VITALS: BP 115/67; PULSE 68; RESP 18; TEMP 36.6; O2SAT 96
[2023-10-06] VITALS (8 sets, daily range): BP systolic 78–145; BP diastolic 42–69; PULSE 62–86; RESP 14–18; TEMP 35.2–36.8; O2SAT 92–99
[2023-10-06] MEDS: Enoxaparin Sodium 40 MG/0.4 ML SYRINGE SUBCUT ×2 (01:56→22:10)
[2023-10-06] MEDS: 0.9 % Sodium Chloride Flush 3 ML SYRINGE IVFLUSH (01:57)
[2023-10-06] MEDS: Famotidine 20 MG TABLET 10 MG PO ×2 (05:45→17:20)
[2023-10-06] MEDS: Omeprazole 20 MG CAPSULE.DR PO (05:45)
[2023-10-06 07:28] LABS: Glucose, Whole Blood 121 mg/dL (60-115)
[2023-10-06] MEDS: Fluticasone/Vilanterol 100/25 BLST.W.DEV 1 PUFF INHALE (07:42)
[2023-10-06] MEDS: FLUoxetine HCl 20 MG CAPSULE 80 MG PO (08:36)
[2023-10-06] MEDS: Benztropine Mesylate 1 MG TABLET PO ×2 (08:37→22:11)
[2023-10-06] MEDS: fluPHENAZine HCl 5 MG TABLET PO ×2 (08:37→22:11)
[2023-10-06] MEDS: Atorvastatin Calcium 10 MG TABLET PO (08:37)
[2023-10-06] MEDS: busPIRone HCl 10 MG TABLET PO ×2 (08:37→22:11)
[2023-10-06] MEDS: lamoTRIgine 25 MG TABLET PO (08:37)
--- NOTE | 2023-10-06 09:28 | P.PNIM_ITS ---
Subjective Subjective Date of Service: 10/06/23 Interval History: tired, otherwise no complaints Physical Exam 2 Vital Signs: Vital Signs: Last Vital Signs Temp 98.2 F 10/06/23 07:19 Pulse 73 10/06/23 07:46 Resp 18 10/06/23 07:46 BP 89/42 L 10/06/23 07:19 Pulse Ox 92 10/06/23 07:19 O2 Del Method Room Air 10/06/23 07:19 O2 Flow Rate 1 10/05/23 01:11 Oxygen Flow Rate 1 10/04/23 20:10 BMI result Body Mass Index 39.5 General: AO X 3, no acute distress Resp: CTA bilateral, no accessory muscles used CVS: S1,S2,RRR GI: soft, non tender, non distended Neuro: motor grossly intact, alert Psych: appropriate affect, appropriate insight Objective Data Active Medications Acetaminophen (Acetaminophen 325 Mg Tablet) 650 mg PO Q6H PRN PRN Reason: Pain, Mild (Pain Scale 1-3) Albuterol Sulfate (Albuterol Sulfate 90 Mcg 8 Gm Inhaler) 2 puff INHALE Q4H PRN PRN Reason: Shortness Of Breath Or Wheezing Atorvastatin Calcium (Atorvastatin Calcium 10 Mg Tablet) 10 mg PO DAILY [facility] Last Admin: 10/06/23 08:37 Dose: 10 mg Documented By: BLADE Benztropine Mesylate (Benztropine Mesylate 1 Mg Tablet) 1 mg PO BID [facility] Last Admin: 10/06/23 08:37 Dose: 1 mg Documented By: BLADE Buspirone HCl (Buspirone Hcl 10 Mg Tablet) 10 mg PO BID [facility] Last Admin: 10/06/23 08:37 Dose: 10 mg Documented By: BLADE Dextrose (Dextrose 50 % 25 Gm/50 Ml Syringe) 25 gm IVPUSH Q15M PRN; Protocol PRN Reason: per Hypoglycemia Standing Ord. Enoxaparin Sodium (Enoxaparin Sodium 40 Mg/0.4 Ml Syringe) 40 mg SUBCUT Q24H [facility] Last Admin: 10/06/23 01:56 Dose: 40 mg Documented By: ROGELIO Famotidine (Famotidine 20 Mg Tablet) 10 mg PO BID@0630,1630 [facility] Last Admin: 10/06/23 05:45 Dose: 10 mg Documented By: ROGELIO Fluoxetine HCl (Fluoxetine Hcl 20 Mg Capsule) 80 mg PO DAILY [facility] Last Admin: 10/06/23 08:36 Dose: 80 mg Documented By: BLADE Fluphenazine HCl (Fluphenazine Hcl 5 Mg Tablet) 5 mg PO BID [facility] Last Admin: 10/06/23 08:37 Dose: 5 mg Documented By: BLADE Fluticasone/Vilanterol (Fluticasone/Vilanterol 100/25 Blst.W.Dev) 1 puff INHALE RDAILY [facility] Last Admin: 10/06/23 07:42 Dose: 1 puff Documented By: RY Glucose (Glucose Gel 15 Gm Gel..Gram.) 15 gm PO Q15M PRN; Protocol PRN Reason: per Hypoglycemia Standing Ord. Insulin Human Lispro (Insulin Lispro 100 Unit/Ml 3 Ml Vial) 0 unit SUBCUT QIDACHS [facility]; Protocol Last Admin: 10/06/23 07:30 Dose: Not Given Documented By: BLADE Non-Admin Reason: No Insulin Coverage Lamotrigine (Lamotrigine 25 Mg Tablet) 25 mg PO DAILY [facility] Last Admin: 10/06/23 08:37 Dose: 25 mg Documented By: BLADE Lisinopril (Lisinopril 5 Mg Tablet) 5 mg PO DAILY [facility]; Protocol Last Admin: 10/06/23 09:03 Dose: Not Given Documented By: BLADE Non-Admin Reason: Decreased Blood Pressure Lorazepam (Lorazepam 0.5 Mg Tablet) 0.5 mg PO DAILY PRN PRN Reason: Anxiety Melatonin (Melatonin 3 Mg Tablet) 6 mg PO BEDTIME PRN PRN Reason: Insomnia Mirtazapine (Mirtazapine 7.5 Mg Tablet) 7.5 mg PO BEDTIME [facility] Last Admin: 10/05/23 21:17 Dose: 7.5 mg Documented By: ROGELIO Montelukast Sodium (Montelukast Sodium 10 Mg Tablet) 10 mg PO BEDTIME [facility] Last Admin: 10/05/23 21:17 Dose: 10 mg Documented By: ROGELIO Omeprazole (Omeprazole 20 Mg Capsule.) 20 mg PO DAILY@0630 [facility] Last Admin: 10/06/23 05:45 Dose: 20 mg Documented By: ROGELIO Ondansetron HCl (Ondansetron Hcl 4 Mg/2 Ml Vial) 4 mg IVPUSH Q8H PRN PRN Reason: Nausea and Vomiting Prazosin HCl (Prazosin Hcl 1 Mg Capsule) 4 mg PO BEDTIME [facility]; Protocol Last Admin: 10/05/23 21:17 Dose: 4 mg Documented By: ROGELIO Sodium Chloride (0.9 % Sodium Chloride Flush 3 Ml Syringe) 3 ml IVFLUSH QSHIFT [facility] Last Admin: 10/06/23 08:10 Dose: Not Given Documented By: BLADE Non-Admin Reason: No Access Trazodone HCl (Trazodone Hcl 50 Mg Tablet) 150 mg PO BEDTIME [facility] Last Admin: 10/05/23 21:17 Dose: 150 mg Documented By: ROGELIO Labs 10/05/23 10:39 10/05/23 14:58 Labs: Laboratory Results - last 24 hr 10/05/23 10/05/23 10/05/23 10:28 10:39 14:58 MCV 87.5 MCH 28.7 MCHC 32.8 RDW 13.6 Plt Count 262 MPV 10.3 Immature Gran % (Auto) 0.7 H Neut % (Auto) 70.8 Lymph % (Auto) 17.2 L [place] % (Auto) 8.2 Eos % (Auto) 2.7 Baso % (Auto) 0.4 Lymph # (Auto) 1.2 [place]k # (Auto) 0.6 Eos # (Auto) 0.2 Baso # (Auto) 0.0 Abs Immat Gran (auto) 0.05 H Absolute Neuts (auto) 4.8 Absolute Nucleated RBC 0.000 Nucleated RBC % (auto) 0.0 Anion Gap 13 Estim Creat Clear Calc 110.0 Estimated GFR > 60 POC Glucose 172 H Random Glucose 130 H Calcium 9.0 10/05/23 10/06/23 20:33 07:24 MCV MCH MCHC RDW Plt Count MPV Immature Gran % (Auto) Neut % (Auto) Lymph % (Auto) Elk % (Auto) Eos % (Auto) Baso % (Auto) Lymph # (Auto) Elk # (Auto) Eos # (Auto) Baso # (Auto) Abs Immat Gran (auto) Absolute Neuts (auto) Absolute Nucleated RBC Nucleated RBC % (auto) Anion Gap Estim Creat Clear Calc Estimated GFR POC Glucose 211 H 121 H Random Glucose Calcium Assessment and Plan (1) Suicide attempt: Status: Acute Plan 47F PMH mood disorder, hld, htn, dm, presented with suicide attempt with clonidine overdose depression with suicide attempt, clonidine overdose medically cleared, care team eval dm insulin hld statin htn holding bp meds for low normal bp dvt prophylaxis - lovenox full code reason for continued hospitalization:care team eval Quality Stroke Does the patient have a stroke diagnosis?: No VTE Prior VTE?: No VTE Risk Level:: Medical - moderate - high VTE Device Contraindication: Treatment Not Indicated VTE Drug Contraindication: N/A - Med Ordered
[2023-10-06 11:27] LABS: Glucose, Whole Blood 177 mg/dL (60-115)
[2023-10-06] MEDS: Midodrine HCl 5 MG TABLET PO (12:02)
[2023-10-06] MEDS: Insulin Lispro 100 UNIT/ML 3 ML VIAL SUBCUT (12:03)
--- NOTE | 2023-10-06 12:47 | MHC.CARE ---
Care team called [facility] and spoke to WALKER Babin who is in charge of Pt. Rn was informed that at this time, Pt was not being discharged at this time as Care team is still awaiting a call back from PT's current program.
[2023-10-06 16:01] LABS: Glucose, Whole Blood 104 mg/dL (60-115)
--- NOTE | 2023-10-06 18:35 | PC.NURSE ---
Patient BP soft this am 80/[address] Portillo notified am lisinopril held. Pt refusing IV this am, tele dc'd. Repeat pressure 88/50 Dr Portillo notified continues to be asymptomatic. Midodrine ordered and given with little effect. BP remains soft. Attempt to obtain IV access unsuccessful MD aware unable to give fluids repeat pressure in afternoon 140's systolic. Remains with 1:1 sitter for safety seen by care team in am, awaiting plan for discharge. Will continue to monitor and report changes
[2023-10-06 20:26] LABS: Glucose, Whole Blood 132 mg/dL (60-115)
[2023-10-06] MEDS: Prazosin HCL 1 MG CAPSULE 4 MG PO (22:10)
[2023-10-06] MEDS: Mirtazapine 7.5 MG TABLET PO (22:11)
[2023-10-06] MEDS: traZODone HCL 50 MG TABLET 150 MG PO (22:11)
[2023-10-06] MEDS: Montelukast Sodium 10 MG TABLET PO (22:11)
[2023-10-07] VITALS: BP 101/57; PULSE 72; RESP 20; TEMP 36.1; O2SAT 96
[2023-10-07 03:17] VITALS: BP 102/71; PULSE 73; RESP 20; TEMP 36.4; O2SAT 97
[2023-10-07] MEDS: Omeprazole 20 MG CAPSULE.DR PO (06:23)
[2023-10-07] MEDS: Famotidine 20 MG TABLET 10 MG PO (06:23)
[2023-10-07 07:20] VITALS: BP 116/53; PULSE 107; RESP 20; TEMP 36.6; O2SAT 97
[2023-10-07 07:46] LABS: Glucose, Whole Blood 111 mg/dL (60-115)
[2023-10-07] MEDS: Fluticasone/Vilanterol 100/25 BLST.W.DEV 1 PUFF INHALE (08:11)
[2023-10-07 08:12] VITALS: PULSE 103; RESP 18; O2SAT 97
[2023-10-07] MEDS: FLUoxetine HCl 20 MG CAPSULE 80 MG PO (08:24)
[2023-10-07] MEDS: Atorvastatin Calcium 10 MG TABLET PO (08:24)
[2023-10-07] MEDS: Benztropine Mesylate 1 MG TABLET PO (08:24)
[2023-10-07] MEDS: lamoTRIgine 25 MG TABLET PO (08:24)
[2023-10-07] MEDS: busPIRone HCl 10 MG TABLET PO (08:24)
[2023-10-07] MEDS: fluPHENAZine HCl 5 MG TABLET PO (08:24)
--- NOTE | 2023-10-07 10:15 | P.PNIM_ITS ---
Subjective Subjective Date of Service: 10/07/23 Interval History: tired, otherwise no complaints Physical Exam 2 Vital Signs: Vital Signs: Last Vital Signs Temp 97.9 F 10/07/23 07:20 Pulse 103 H 10/07/23 08:12 Resp 18 10/07/23 08:12 BP 116/53 L 10/07/23 07:20 Pulse Ox 97 10/07/23 07:20 O2 Del Method Room Air 10/07/23 07:20 O2 Flow Rate 1 10/05/23 01:11 Oxygen Flow Rate 1 10/04/23 20:10 BMI result Body Mass Index 39.5 General: AO X 3, no acute distress Resp: CTA bilateral, no accessory muscles used CVS: S1,S2,RRR GI: soft, non tender, non distended Neuro: motor grossly intact, alert Psych: appropriate affect, appropriate insight Objective Data Active Medications Acetaminophen (Acetaminophen 325 Mg Tablet) 650 mg PO Q6H PRN PRN Reason: Pain, Mild (Pain Scale 1-3) Albuterol Sulfate (Albuterol Sulfate 90 Mcg 8 Gm Inhaler) 2 puff INHALE Q4H PRN PRN Reason: Shortness Of Breath Or Wheezing Atorvastatin Calcium (Atorvastatin Calcium 10 Mg Tablet) 10 mg PO DAILY [facility] Last Admin: 10/07/23 08:24 Dose: 10 mg Documented By: BLADE Benztropine Mesylate (Benztropine Mesylate 1 Mg Tablet) 1 mg PO BID [facility] Last Admin: 10/07/23 08:24 Dose: 1 mg Documented By: BLADE Buspirone HCl (Buspirone Hcl 10 Mg Tablet) 10 mg PO BID [facility] Last Admin: 10/07/23 08:24 Dose: 10 mg Documented By: BLADE Dextrose (Dextrose 50 % 25 Gm/50 Ml Syringe) 25 gm IVPUSH Q15M PRN; Protocol PRN Reason: per Hypoglycemia Standing Ord. Enoxaparin Sodium (Enoxaparin Sodium 40 Mg/0.4 Ml Syringe) 40 mg SUBCUT Q24H [facility] Last Admin: 10/06/23 22:10 Dose: 40 mg Documented By: ROGELIO Famotidine (Famotidine 20 Mg Tablet) 10 mg PO BID@0630,1630 [facility] Last Admin: 10/07/23 06:23 Dose: 10 mg Documented By: ROGELIO Fluoxetine HCl (Fluoxetine Hcl 20 Mg Capsule) 80 mg PO DAILY [facility] Last Admin: 10/07/23 08:24 Dose: 80 mg Documented By: BLADE Fluphenazine HCl (Fluphenazine Hcl 5 Mg Tablet) 5 mg PO BID [facility] Last Admin: 10/07/23 08:24 Dose: 5 mg Documented By: BLADE Fluticasone/Vilanterol (Fluticasone/Vilanterol 100/25 Blst.W.Dev) 1 puff INHALE RDAILY [facility] Last Admin: 10/07/23 08:11 Dose: 1 puff Documented By: RY Glucose (Glucose Gel 15 Gm Gel..Gram.) 15 gm PO Q15M PRN; Protocol PRN Reason: per Hypoglycemia Standing Ord. Insulin Human Lispro (Insulin Lispro 100 Unit/Ml 3 Ml Vial) 0 unit SUBCUT QIDACHS [facility]; Protocol Last Admin: 10/07/23 08:19 Dose: Not Given Documented By: BLADE Non-Admin Reason: No Insulin Coverage Lamotrigine (Lamotrigine 25 Mg Tablet) 25 mg PO DAILY [facility] Last Admin: 10/07/23 08:24 Dose: 25 mg Documented By: BLADE Lorazepam (Lorazepam 0.5 Mg Tablet) 0.5 mg PO DAILY PRN PRN Reason: Anxiety Melatonin (Melatonin 3 Mg Tablet) 6 mg PO BEDTIME PRN PRN Reason: Insomnia Mirtazapine (Mirtazapine 7.5 Mg Tablet) 7.5 mg PO BEDTIME [facility] Last Admin: 10/06/23 22:11 Dose: 7.5 mg Documented By: ROGELIO Montelukast Sodium (Montelukast Sodium 10 Mg Tablet) 10 mg PO BEDTIME [facility] Last Admin: 10/06/23 22:11 Dose: 10 mg Documented By: ROGELIO Omeprazole (Omeprazole 20 Mg Capsule.Dr) 20 mg PO DAILY@0630 [facility] Last Admin: 10/07/23 06:23 Dose: 20 mg Documented By: ROGELIO Ondansetron HCl (Ondansetron Hcl 4 Mg/2 Ml Vial) 4 mg IVPUSH Q8H PRN PRN Reason: Nausea and Vomiting Sodium Chloride (0.9 % Sodium Chloride Flush 3 Ml Syringe) 3 ml IVFLUSH QSHIFT [facility] Last Admin: 10/07/23 08:26 Dose: Not Given Documented By: BLADE Non-Admin Reason: No Access Trazodone HCl (Trazodone Hcl 50 Mg Tablet) 150 mg PO BEDTIME [facility] Last Admin: 10/06/23 22:11 Dose: 150 mg Documented By: ROGELIO Labs 10/05/23 10:39 10/05/23 14:58 Labs: Laboratory Results - last 24 hr 10/06/23 10/06/23 10/06/23 11:24 15:56 20:23 POC Glucose 177 H 104 132 H 10/07/23 07:13 POC Glucose 111 Assessment and Plan (1) Suicide attempt: Status: Acute Plan 47F PMH mood disorder, hld, htn, dm, presented with suicide attempt with clonidine overdose depression with suicide attempt, clonidine overdose medically cleared, care team eval dm insulin hld statin htn holding bp meds for low normal bp dvt prophylaxis - lovenox full code reason for continued hospitalization:care team eval Quality Stroke Does the patient have a stroke diagnosis?: No VTE Prior VTE?: No VTE Risk Level:: Medical - moderate - high VTE Device Contraindication: Treatment Not Indicated VTE Drug Contraindication: N/A - Med Ordered
[2023-10-07 10:59] VITALS: BP 116/64; PULSE 81; RESP 18; TEMP 36.4; O2SAT 97
[2023-10-07 11:31] LABS: Glucose, Whole Blood 156 mg/dL (60-115)
[2023-10-07] MEDS: Insulin Lispro 100 UNIT/ML 3 ML VIAL SUBCUT (11:53)
--- NOTE | 2023-10-07 13:11 | P.DS_ITS ---
DS: Providers Provider Date of Service: 10/07/23 Date of admission: 10/04/23 22:52 Primary care physician: Maribel Marquez NP Consults: 10/04/23 22:03 Consult to Care Team Routine Comment: Reason for consultation: SI attempt 10/04/23 22:52 Consult to Psychiatry Routine Consulting Provider: Psych Covering Reason for consultation: suicidal attempt 10/04/23 22:55 Consult for Sitter Routine Reason for consultation: suicidal attempt 10/06/23 06:54 Consult to Care Team Routine Comment: Reason for consultation: medically cleared DS: Diagnosis Discharge Diagnosis (1) Suicide attempt: Status: Acute DS: Summary Hospital Course Hospital Course: from initial hpi: 47-year-old female with pertinent history of mood disorder, mixed hyperlipidemia, essential hypertension, [id number] diabetes mellitus presents to the emergency department after a suicide attempt. Patient is very somnolent at the time of my evaluation. She is drowsy and awakens to verbal stimulus but falls back asleep after conversation. States she took about 20 tablets of clonidine prior to arrival. As per EMS, the bottle had 0.1 and 0.3 mg tablets of clonidine. Poison Control was contacted in the ER who recommended 24 hours observation. Patient denies chest pain, dizziness. No fever, chills, shortness of breath, palpitations, abdominal pain, changes in urinary or bowel habits. hospital course: Patient was admitted for depression with suicide attempt, clonidine overdose. She had mild hypotension and blood pressure meds were held. Now normotensive and asymptomatic. Was seen by care team who recommended going home to intermediate and plan to section of patient leaves property. For diabetes was continue insulin. Hyperlipidemia is continue on statin. Time Attestation Discharge coordination time: Greater than 30 minutes Quality: Safe Use of Opioids Does Pt have an Active Cancer Diagnosis on the Problem List?: No Quality: Stroke Does the patient have a stroke diagnosis?: No Physical Exam Vital Signs: Vital Signs: Last Vital Signs Temp 97.5 F 10/07/23 10:59 Pulse 81 10/07/23 10:59 Resp 18 10/07/23 10:59 BP 116/64 10/07/23 10:59 Pulse Ox 97 10/07/23 10:59 O2 Del Method Room Air 10/07/23 10:59 O2 Flow Rate 1 10/05/23 01:11 Oxygen Flow Rate 1 10/04/23 20:10 BMI result Body Mass Index 39.5 General: AO X 3, no acute distress Resp: CTA bilateral, no accessory muscles used CVS: S1,S2,RRR GI: soft, non tender, non distended Neuro: motor grossly intact, alert Psych: appropriate affect, appropriate insight DS: Data Data Completed and Pending Completed studies during hospitalization [Text1]: Procedures Insertion of Infusion Device into Left Internal Jugular Vein, Percutaneous Approach (02/09/22) Labs on day of discharge: Laboratory Results - last 24 hr 10/06/23 10/06/23 10/07/23 15:56 20:23 07:13 POC Glucose 104 132 H 111 10/07/23 11:01 POC Glucose 156 H Discharge Plan Discharge Anticipated Discharge Date/Time: 10/07/23 13:08 Patient Disposition: Xfer Other Discharge Diagnosis: Suicide attempt, clonidine overdose Referrals: Maribel Marquez, SOURCING COORDINATOR [Primary Care Provider] - 1 Week Discharge Medications: Continued fluoxetine 40 mg capsule 80 mg PO DAILY lorazepam 0.5 mg tablet 0.5 mg PO DAILY PRN (Reason: Anxiety) famotidine 10 mg Tablet 10 mg PO BID@0630,1630 fluphenazine HCl 5 mg tablet 5 mg PO BID albuterol sulfate [Ventolin HFA] 90 mcg/actuation HFA aerosol inhaler 2 inh inhalation Q4H PRN (Reason: Shortness Of Breath Or Wheezing) montelukast 10 mg tablet 10 mg PO BEDTIME metformin 500 mg tablet 500 mg PO BID atorvastatin 10 mg tablet 10 mg PO DAILY lamotrigine 25 mg tablet 25 mg PO DAILY pantoprazole 40 mg tablet,delayed release (DR/EC) 40 mg PO DAILY@0630 trazodone 150 mg tablet 150 mg PO BEDTIME buspirone 10 mg tablet 10 mg PO BID benztropine 1 mg tablet 1 mg PO BID fluticasone propion-salmeterol [Advair Diskus] 100-50 mcg/dose blister with device 1 ea inhalation BID mirtazapine 7.5 mg tablet 7.5 mg PO BEDTIME Discontinued prazosin 2 mg capsule 4 mg PO BEDTIME lisinopril 5 mg tablet 5 mg PO DAILY Discharge Orders: Discharge Order (Routine); Ordered 10/07/23 Ordered By: Brad Portillo Diet: Advance to usual diet Activity on Discharge: As tolerated Stand Alone Forms: Patient Portal Discharge page Care Plan Goals: manage depression Health Concerns: multiple suicide attempts Plan of Treatment: patient to return to intermediate, if leaves intermediate, plan to section lisinopril and prazosin held for low bp, if high bp may need to titrate back on Assessment: see above
--- NOTE | 2023-10-07 13:26 | MHC.CM.PN ---
Patient has been medically cleared for dc to return to her [facility] today. CM met with Patient at bedside and addressed the IMM with her, providing Patient with the original and placing a copy on the chart. Per Patient and the room Sitter, Reena from the Care Team is arranging for a Lyft for Patient's return. CM left a detailed message for Patient's only contact (from the [facility]) informing him of Patient's return today. Patient indicated that her [facility] is already aware of her returning there today.
--- NOTE | 2023-10-07 14:13 | MHC.CM.PN ---
RD has confirmed with Care TeaM(Will) THAT SHE IS ARRANGING THE lyft RIDE FOR pATIENT. pER Will, SHE IS WAITING FOR A [employer] TESTER to crop picker the ride.
--- NOTE | 2023-10-07 15:25 | MHC.CM.PN ---
RN expressed concern regarding Patient being transported back to [facility] via [facility]. Patient will return to [facility] via [facility] today at 4 PM. RN has informed Care Team of the change in plans.
== END 2023-10-07 15:48 | disposition other institution (70) | DRG 913 ==
LOC: HO.ED 22:50 → HO.EDOVER 23:08 → HO.IMC 23:56
PROVIDERS: Admitting Provider Student in an Organized Health Care Education/Training Program; Emergency Provider Emergency Medicine; PCP Nurse Practitioner Family; Visit Provider Internal Medicine
DX: T14.91XA Suicide attempt, initial encounter (principal); G92.8 Other toxic encephalopathy; T46.5X2A Poisoning by other antihypertensive drugs, intentional self-harm, initial encounter; Y93.9 Activity, unspecified; Y99.9 Unspecified external cause status; E78.2 Mixed hyperlipidemia; I10 Essential (primary) hypertension; F39 Unspecified mood [affective] disorder; E11.9 Type 2 diabetes mellitus without complications; Z79.899 Other long term (current) drug therapy
CPT/HCPCS: 36415; 80048; 80053; 80061; 80076; 80143; 80179; 80307; 81001; 81025; 82803; 82947; 83690; 83735; 84484; 84702; 85025; 85027; 85610; 87086; 87635; 93005; 96372; 99222; 99285; J1650; S9485

== ENCOUNTER → 2023-10-04 20:04 | Outpatient (BNV) | payer MEDICARE, MEDICAID, SELFPAY | PROVIDERS: Admitting Provider Student in an Organized Health Care Education/Training Program; Emergency Provider Emergency Medicine; PCP Nurse Practitioner Family; Visit Provider Internal Medicine Cardiovascular Disease | DX: T50.901A Poisoning by unspecified drugs, medicaments and biological substances, accidental (unintentional), initial encounter (principal) | CPT/HCPCS: 93010 ==

== ENCOUNTER 2023-10-04 22:52 | Outpatient (BNV) | payer MEDICARE, MEDICAID, SELFPAY | END 2023-10-05 00:45 | PROVIDERS: Admitting Provider Student in an Organized Health Care Education/Training Program; Emergency Provider Emergency Medicine; PCP Nurse Practitioner Family; Visit Provider Internal Medicine Cardiovascular Disease | DX: I44.0 Atrioventricular block, first degree (principal) | CPT/HCPCS: 93010 ==

== ENCOUNTER → 2023-10-04 22:52 | Outpatient (BNV) | payer MEDICARE, MEDICAID, SELFPAY | PROVIDERS: Admitting Provider Student in an Organized Health Care Education/Training Program; Emergency Provider Emergency Medicine; PCP Nurse Practitioner Family; Visit Provider Student in an Organized Health Care Education/Training Program | DX: T14.91XA Suicide attempt, initial encounter (principal) | CPT/HCPCS: 99222; 99232; 99239 ==

== ENCOUNTER 2023-10-07 23:08 | Emergency (ER) | payer MEDICARE, MEDICAID, SELFPAY ==
[2023-10-07 23:17] VITALS: BP 135/89; PULSE 138; RESP 20; TEMP 36.6; O2SAT 97; BMI 30.4
[2023-10-08 00:04] LABS: MANUAL DIFF FLAG NO
[2023-10-08 00:05] LABS: Basophils Percent Auto 0.3 % (0-2); Eosinophils Absolute Auto 0.2 X10*3/uL (0.0-0.4); Eosinophils Percent Auto 2.1 % (0-4); Hematocrit 36.7 % (37.0-47.0); Hemoglobin 11.6 g/dl (12.0-16.0); Imm Gran Abs Auto 0.05 X10*3/uL (0.00-0.03); Imm Gran Pct Auto 0.5 % (0.0-0.4); Lymphocytes Percent Auto 20.1 % (20-40); Mean Corpuscular HGB Conc 31.6 g/dl (31.0-35.0); Mean Corpuscular Hemoglobin 27.2 pg (27.0-33.0); Mean Corpuscular Volume 86.2 fL (80.0-98.0); Monocytes Percent Auto 9.9 % (2-11); Neutrophils Absolute Auto 6.5 x10*3/uL (2.0-8.3); Neutrophils Percent Auto 67.1 % (45-73); Platelet Count 343 X10*3/uL (160-400); Red Blood Count 4.26 X10*6/uL (4.20-5.50); Red Cell Distribution Width 13.8 % (11.0-16.0); White Blood Count 9.7 X10*3/uL (4.8-10.8)
[2023-10-08] MEDS: LORazepam 1 MG TABLET 2 MG PO (00:07)
[2023-10-08 00:20] LABS: Ethanol < 10 mg/dL
[2023-10-08 00:23] LABS: Alanine Aminotransferase 10 U/L (0-31); Albumin Level 4.5 g/dL (3.5-5.0); Alkaline Phosphatase 123 U/L (39-117); Anion Gap 18 (12-20); Aspartate Amino Transferase 15 U/L (5-31); Bilirubin Total 0.2 mg/dL (0.0-1.0); Blood Urea Nitrogen 17 mg/dL (9-16); Calcium 9.5 mg/dL (8.4-10.2); Carbon Dioxide 20 mmol/L (22-29); Chloride 107 mmol/L (96-108); Estimated Glomerular Filt Rate > 60; Glucose Random 214 mg/dL (60-115); Potassium 3.6 mmol/L (3.3-5.1); Sodium 141 mmol/L (135-145); Total Protein 7.9 g/dL (6.5-8.0)
[2023-10-08 00:24] LABS: Acetaminophen LAB < 3 mcg/mL (<30); Salicylate < 5.0 mg/dL (15-30)
[2023-10-08 01:05] LABS: Appearance Urine Cloudy; Color Urine Yellow; Glucose Urine UA 100 mg/dL (Negative); Leukocyte Esterase Urine Moderate (2+) (Negative); Nitrite Urine Negative (Negative); PH 5.5 (5.0-9.0); Specific Gravity - Urine 1.015 (1.005-1.025); UMIC TRIGGER UACC YES; Urine Blood Negative (Negative); Urine Ketones Negative (Negative); Urine Protein Negative (Neg-Trace)
[2023-10-08 01:07] LABS: Bacteria Urine 2+ (None Seen); Hyaline Casts Urine 0-2 /LPF (0-2); UACC Culture Trigger YES
[2023-10-08 01:13] LABS: Amphetamine Screen Urine Not Detected (Not Detect); Barbiturates, Urine Not Detected (Not Detect); Benzodiazepines Screen Urine Not Detected (Not Detect); Cannabinoid Screen Urine Not Detected (Not Detect); Cocaine Screen Urine Not Detected (Not Detect); Fentanyl, urine Not Detected (Not Detect); Opiate Screen Urine Not Detected (Not Detect); Phencyclidine Screen Urine Not Detected (Not Detect)
--- NOTE | 2023-10-08 02:21 | ED.GENADULT ---
HPI - General Adult General Chief complaint: Psychiatric Symptoms Stated complaint: audible hallucinations, self harm Time Seen by Provider: 10/07/23 23:18 Source: patient Mode of arrival: ambulatory Limitations: no limitations History of Present Illness HPI narrative: 47 yolld female with pmh of depression, DM, and pTSD presents to the eD for audutory hallucinations tell her to hurt and killer herself. Due to voice she cut her left forearm with a knife. Related Data Home Medications Medication Instructions Recorded Confirmed fluoxetine 40 mg capsule 80 mg PO DAILY 08/25/23 10/08/23 lorazepam 0.5 mg tablet 0.5 mg PO DAILY PRN Anxiety 08/31/23 10/08/23 albuterol sulfate 90 mcg/actuation 2 inh inhalation Q4H PRN Shortness 09/17/23 10/08/23 aerosol inhaler (Ventolin HFA) Of Breath Or Wheezing famotidine 10 mg tablet 10 mg PO BID@0630,1630 09/17/23 10/08/23 fluphenazine HCl 5 mg tablet 5 mg PO BID 09/17/23 10/08/23 montelukast 10 mg tablet 10 mg PO BEDTIME 09/17/23 10/08/23 atorvastatin 10 mg tablet 10 mg PO DAILY 10/04/23 10/08/23 benztropine 1 mg tablet 1 mg PO BID 10/04/23 10/08/23 buspirone 10 mg tablet 10 mg PO BID 10/04/23 10/08/23 fluticasone 100 mcg-salmeterol 50 1 ea inhalation BID 10/04/23 10/08/23 mcg/dose blistr powdr for inhalation (Advair Diskus) lamotrigine 25 mg tablet 25 mg PO DAILY 10/04/23 10/08/23 metformin 500 mg tablet 500 mg PO BID 10/04/23 10/08/23 mirtazapine 7.5 mg tablet 7.5 mg PO BEDTIME 10/04/23 10/08/23 pantoprazole 40 mg tablet,delayed 40 mg PO DAILY@0630 10/04/23 10/08/23 release trazodone 150 mg tablet 150 mg PO BEDTIME 10/04/23 10/08/23 Allergies Allergy/AdvReac Type Severity Reaction Status Date / Time azithromycin [AZITHROMYCIN] Allergy Severe Rash Verified 09/16/23 21:31 Fish Containing Products Allergy Severe Anaphylaxis Verified 09/16/23 21:31 codeine [Codeine] Allergy Intermediate Rash Verified 09/16/23 21:31 Penicillins Allergy Intermediate Rash Verified 09/16/23 21:31 prednisone [Prednisone] Allergy Intermediate Rash Verified 09/16/23 21:31 Sulfa (Sulfonamide Allergy Intermediate Rash Verified 09/16/23 21:31 Antibiotics) [Sulfa (Sulfonamides)] ziprasidone [From Geodon] Allergy Intermediate dysuria, Verified 09/16/23 21:31 rash Review of Systems Review of Systems: auditory hallucination. SI thoughts. cut left forearm Yes all other systems are reviewed and are negative PMFSH Past Medical History Medical History Chest pain Acute anxiety COVID-19 Full body hives Major depression Dizziness Suicide attempt UTI (urinary tract infection) Acetaminophen overdose COVID History of attempted suicide History of non-suicidal self-harm Hypomagnesemia Suicide attempt Suicide attempt by acetaminophen overdose Acetaminophen overdose Depression MDD (major depressive disorder), recurrent episode, severe Diabetes type 2, controlled Borderline personality disorder PTSD (post-traumatic stress disorder) Overdose GERD (gastroesophageal reflux disease) Mood disorder Hyperlipidemia Bronchitis Social History Social History Household Members: None Household Members Other:: alf Housing: Other Housing Other:: [facility] housing Do you presently have visiting nurse or other home services: Yes Unable to assess alcohol history related to: Unknown Alcohol intake: current Alcohol intake frequency: does not drink Comment: 1:1 sitter Patient Tobacco Use Status: Former Tobacco user Quit Date: NA Tobacco use type: Cigarette Cigarette Packs Per Day: 0.5 Cigarettes Per Day: 10.0 Years Smoked: 22 Smoked in Last 30 Days: Yes e-Cigarette/Vaping Use: Never Used Second Hand Smoke Exposure: No Use of substances other than those prescribed or required for medical reasons: No Substance Use Type: Marijuana Advance Directives: No Advance Directives Information Provided: No Healthcare Proxy: No Guardian: No Patient : No service: No Current occupational status: unemployed and disabled Sexual orientation: Straight/Heterosexual Physical Exam ED Vital Signs: Vital Signs - 24 hr 10/08/23 15:38 10/09/23 09:57 Temperature 97 F 97.6 F Pulse Rate 99 92 Respiratory Rate 16 16 Blood Pressure 111/76 114/66 Pulse Oximetry 97 98 Oxygen Delivery Method Room Air Room Air BMI result Body Mass Index 30.4 Const General: cooperative, healthy appearing, comfortable, no acute distress, well developed, alert and awake Orientation/consciousness: oriented to person, oriented to place, oriented to time and patient oriented x3 HENOH Head: Yes normal to inspection, Yes No palpable skull fracture present, Yes normocephalic and Yes atraumatic Eyes General: appearance normal, both eyes and all related structures Neck Neck: Yes normal visual inspection, Yes full ROM, Yes no lymphadenopathy, Yes no meningeal signs, Yes trachea midline, Yes supple, No anterior neck swelling and No tender Chest Chest palpation & inspection: normal inspection of the chest and normal palpation of entire chest wall Resp Effort & Inspection: normal respiratory effort and able to speak in complete sentences Auscultation: clear to auscultation bilaterally Cardio Jugular venous distension: no JVD Heart sounds: S1 normal heart sound present and S2 normal heart sound present GI Inspection: Yes normal to inspection Palpation (GI): Soft to palpation, not firm, nontender, no guarding and not rigid General: Yes no CVA tenderness Back/Spine/Pelvis Back: no CVA tenderness and No back tenderness Skin Other: left forearm superficial abrasions General skin exam: no rashes or lesions noted and elasticity normal Neuro General: oriented to person, oriented to place, oriented to time, patient oriented x3, gait normal, tone normal, moves all extremities, Normal light touch and pain sensation, no meningeal signs, no focal motor deficits, CN's II-XI intact bilaterally and normal sensation to monofilament Extrem Other: LEft forearm positive for superfical abrasions. no need for suture repair. motor, neuro, and vascular exam is intact. General: Yes normal to inspection and Yes full ROM Psych Appearance: grossly normal, well kempt and not disheveled Course Reevaluation(s) Reevaluation #1: No acute events overnight, continue physician observation, awaiting care team evaluation. Patient presents with reports of AVH. Time: 07:45 Reevaluation #2: The patient was kept in the emergency room overnight last night. Today she is feeling better and would like to be discharged. She seems common cooperative and I think this is appropriate. Time: 11:14 Medications Administered Generic Name Dose Route Start Last Admin Trade Name Freq PRN Reason Stop Dose Admin Atorvastatin Calcium 10 mg 10/09/23 09:00 10/09/23 09:49 Atorvastatin Calcium 10 Mg Tablet PO 10 mg DAILY YULY Administration Benztropine Mesylate 1 mg 10/08/23 21:00 10/09/23 09:49 Benztropine Mesylate 1 Mg Tablet PO 1 mg BID YULY Administration Buspirone HCl 10 mg 10/08/23 21:00 10/09/23 09:49 Buspirone Hcl 10 Mg Tablet PO 10 mg BID YULY Administration Famotidine 10 mg 10/08/23 16:30 10/09/23 06:29 Famotidine 20 Mg Tablet PO Not Given BID@0630,1630 YULY Fluoxetine HCl 80 mg 10/09/23 09:00 10/09/23 09:48 Fluoxetine Hcl 20 Mg Capsule PO 80 mg DAILY YULY Administration Fluphenazine HCl 5 mg 10/08/23 21:00 10/08/23 19:54 Fluphenazine Hcl 5 Mg Tablet PO 5 mg BID YULY Administration Fluticasone/Vilanterol 1 puff 10/09/23 08:00 10/09/23 09:42 Fluticasone/Vilanterol 100/25 Blst.W.Dev INHALE 1 puff RDAILY YULY Administration Lamotrigine 25 mg 10/09/23 09:00 10/09/23 09:49 Lamotrigine 25 Mg Tablet PO 25 mg DAILY YULY Administration Lorazepam 0.5 mg 10/08/23 11:35 10/08/23 19:11 Lorazepam 0.5 Mg Tablet PO 0.5 mg DAILY PRN Administration Anxiety Metformin HCl 500 mg 10/08/23 21:00 10/09/23 09:49 Metformin Hcl 500 Mg Tablet PO 500 mg BID YULY Administration Mirtazapine 7.5 mg 10/08/23 21:00 10/08/23 19:54 Mirtazapine 7.5 Mg Tablet PO 7.5 mg BEDTIME YULY Administration Montelukast Sodium 10 mg 10/08/23 21:00 10/08/23 19:54 Montelukast Sodium 10 Mg Tablet PO 10 mg BEDTIME YULY Administration Omeprazole 20 mg 10/09/23 06:30 10/09/23 06:29 Omeprazole 20 Mg Capsule.Dr PO Not Given DAILY@0630 YULY Trazodone HCl 150 mg 10/08/23 21:00 10/08/23 19:54 Trazodone Hcl 50 Mg Tablet PO 150 mg BEDTIME YULY Administration Discontinued Medications Generic Name Dose Route Start Last Admin Trade Name Elmer PRN Reason Stop Dose Admin Lorazepam 2 mg 10/08/23 00:03 10/08/23 00:07 Lorazepam 1 Mg Tablet PO 10/08/23 00:04 2 mg ONCE ONE Administration Lorazepam 1 mg 10/08/23 05:46 10/08/23 05:49 Lorazepam 1 Mg Tablet PO 10/08/23 05:47 1 mg ONCE ONE Administration Medical Decision Making Medical Decision Making [facility] Narrative: 27-year-old female known history of depression and PTSD presents to ED for auditory hallucinations telling her to hurt herself so patient cut her wrist with a fork. No need for laceration repair. Patient states no other complaints hip. Patient labs are normal. Patient awaiting for care team evaluation Differential Diagnosis Differential Diagnoses: The differential diagnosis associated with the presentation includes Consult Healthcare Provider Management of the patient was discussed with: Electrical Engineer (Care TEAM) Lab Data [facility] Lab Attestation statement: I reviewed the patient's lab results. 10/07/23 23:57 10/07/23 23:57 Labs: Lab Results 10/07/23 10/08/23 10/08/23 Range/Units 23:57 00:59 00:59 WBC 9.7 (4.8-10.8) X10*3/uL RBC 4.26 D (4.20-5.50) X10*6/uL Hgb 11.6 L (12.0-16.0) g/dl Hct 36.7 L (37.0-47.0) % MCV 86.2 (80.0-98.0) fL MCH 27.2 (27.0-33.0) pg MCHC 31.6 (31.0-35.0) g/dl RDW 13.8 (11.0-16.0) % Plt Count 343 D (160-400) X10*3/uL MPV 10.0 (9.4-12.3) fL Immature Gran % (Auto) 0.5 H (0.0-0.4) % Neut % (Auto) 67.1 (45-73) % Lymph % (Auto) 20.1 (20-40) % [place] % (Auto) 9.9 (2-11) % Eos % (Auto) 2.1 (0-4) % Baso % (Auto) 0.3 (0-2) % Lymph # (Auto) 2.0 (1.2-4.9) X10*3/uL [place] # (Auto) 1.0 (0.1-1.2) X10*3/uL Eos # (Auto) 0.2 (0.0-0.4) X10*3/uL Baso # (Auto) 0.0 (0.0-0.2) X10*3/uL Abs Immat Gran (auto) 0.05 H (0.00-0.03) X10*3/uL Absolute Neuts (auto) 6.5 (2.0-8.3) x10*3/uL Absolute Nucleated RBC 0.000 (0.0-0.012) X10*3/uL Nucleated RBC % (auto) 0.0 (0.0-0.2) /100WBC Sodium 141 (135-145) mmol/L Potassium 3.6 (3.3-5.1) mmol/L Chloride 107 (96-108) mmol/L Carbon Dioxide 20 L (22-29) mmol/L Anion Gap 18 (12-20) BUN 17 H (9-16) mg/dL Creatinine 0.92 (0.5-1.4) mg/dL Estim Creat Clear Calc 91.0 Estimated GFR > 60 Random Glucose 214 H (60-115) mg/dL Calcium 9.5 (8.4-10.2) mg/dL Total Bilirubin 0.2 (0.0-1.0) mg/dL AST 15 (5-31) U/L ALT 10 (0-31) U/L Alkaline Phosphatase 123 H (39-117) U/L Total Protein 7.9 (6.5-8.0) g/dL Albumin 4.5 (3.5-5.0) g/dL Urine Color Yellow Cancelled Urine Appearance Cloudy Urine pH (5.0-9.0) Ur Specific [place] (1.005-1.025) Urine Protein (Neg-Trace) mg/dL Urine Glucose (UA) (Negative) mg/dL Urine Ketones (Negative) mg/dL Urine Blood (Negative) Urine Nitrite (Negative) Ur Leukocyte Esterase (Negative) Urine RBC (0-2) /HPF Urine WBC (0-5) /HPF Urine WBC Clumps Ur Squamous Epith Cells (0-2) /HPF Ur Transition Epith Cell Ur Renal Epithelial Cell Calcium Oxalate Crystal Leucine Crystals Cystine Crystals Tyrosine Crystals Other Crystals Urine Bacteria (None Seen) Urine Parasites Bilirubin Casts Epithelial Casts Fatty Casts Hyaline Casts (0-2) /LPF Granular Casts Waxy Casts Broad Casts RBC Casts WBC Casts Other Casts Urine Trichomonas Urine Yeast Urine Test (NEGATIVE) Salicylates < 5.0 L (15-30) mg/dL Urine Opiates Screen (Not Detect) Urine Fentanyl Screen (Not Detect) Acetaminophen < 3 (<30) mcg/mL Ur Barbiturates Screen (Not Detect) Ur Phencyclidine Scrn (Not Detect) Ur Amphetamines Screen (Not Detect) U Benzodiazepines Scrn (Not Detect) Urine Cocaine Screen (Not Detect) U Marijuana (THC) Screen (Not Detect) Ethyl Alcohol < 10 mg/dL 10/08/23 10/08/23 10/08/23 Range/Units 00:59 00:59 00:59 WBC (4.8-10.8) X10*3/uL RBC (4.20-5.50) X10*6/uL Hgb (12.0-16.0) g/dl Hct (37.0-47.0) % MCV (80.0-98.0) fL MCH (27.0-33.0) pg MCHC (31.0-35.0) g/dl RDW (11.0-16.0) % Plt Count (160-400) X10*3/uL MPV (9.4-12.3) fL Immature Gran % (Auto) (0.0-0.4) % Neut % (Auto) (45-73) % Lymph % (Auto) (20-40) % [place] % (Auto) (2-11) % Eos % (Auto) (0-4) % Baso % (Auto) (0-2) % Lymph # (Auto) (1.2-4.9) X10*3/uL [place] # (Auto) (0.1-1.2) X10*3/uL Eos # (Auto) (0.0-0.4) X10*3/uL Baso # (Auto) (0.0-0.2) X10*3/uL Abs Immat Gran (auto) (0.00-0.03) X10*3/uL Absolute Neuts (auto) (2.0-8.3) x10*3/uL Absolute Nucleated RBC (0.0-0.012) X10*3/uL Nucleated RBC % (auto) (0.0-0.2) /100WBC Sodium (135-145) mmol/L Potassium (3.3-5.1) mmol/L Chloride (96-108) mmol/L Carbon Dioxide (22-29) mmol/L Anion Gap (12-20) BUN (9-16) mg/dL Creatinine (0.5-1.4) mg/dL Estim Creat Clear Calc Estimated GFR Random Glucose (60-115) mg/dL Calcium (8.4-10.2) mg/dL Total Bilirubin (0.0-1.0) mg/dL AST (5-31) U/L ALT (0-31) U/L Alkaline Phosphatase (39-117) U/L Total Protein (6.5-8.0) g/dL Albumin (3.5-5.0) g/dL Urine Color Urine Appearance Cancelled Urine pH 5.5 Cancelled (5.0-9.0) Ur Specific [place] 1.015 Cancelled (1.005-1.025) Urine Protein Negative (Neg-Trace) mg/dL Urine Glucose (UA) (Negative) mg/dL Urine Ketones (Negative) mg/dL Urine Blood (Negative) Urine Nitrite (Negative) Ur Leukocyte Esterase (Negative) Urine RBC (0-2) /HPF Urine WBC (0-5) /HPF Urine WBC Clumps Ur Squamous Epith Cells (0-2) /HPF Ur Transition Epith Cell Ur Renal Epithelial Cell Calcium Oxalate Crystal Leucine Crystals Cystine Crystals Tyrosine Crystals Other Crystals Urine Bacteria (None Seen) Urine Parasites Bilirubin Casts Epithelial Casts Fatty Casts Hyaline Casts (0-2) /LPF Granular Casts Waxy Casts Broad Casts RBC Casts WBC Casts Other Casts Urine Trichomonas Urine Yeast Urine Test (NEGATIVE) Salicylates (15-30) mg/dL Urine Opiates Screen (Not Detect) Urine Fentanyl Screen (Not Detect) Acetaminophen (<30) mcg/mL Ur Barbiturates Screen (Not Detect) Ur Phencyclidine Scrn (Not Detect) Ur Amphetamines Screen (Not Detect) U Benzodiazepines Scrn (Not Detect) Urine Cocaine Screen (Not Detect) U Marijuana (THC) Screen (Not Detect) Ethyl Alcohol mg/dL 10/08/23 10/08/23 10/08/23 Range/Units 00:59 00:59 00:59 WBC (4.8-10.8) X10*3/uL RBC (4.20-5.50) X10*6/uL Hgb (12.0-16.0) g/dl Hct (37.0-47.0) % MCV (80.0-98.0) fL MCH (27.0-33.0) pg MCHC (31.0-35.0) g/dl RDW (11.0-16.0) % Plt Count (160-400) X10*3/uL MPV (9.4-12.3) fL Immature Gran % (Auto) (0.0-0.4) % Neut % (Auto) (45-73) % Lymph % (Auto) (20-40) % [place] % (Auto) (2-11) % Eos % (Auto) (0-4) % Baso % (Auto) (0-2) % Lymph # (Auto) (1.2-4.9) X10*3/uL [place] # (Auto) (0.1-1.2) X10*3/uL Eos # (Auto) (0.0-0.4) X10*3/uL Baso # (Auto) (0.0-0.2) X10*3/uL Abs Immat Gran (auto) (0.00-0.03) X10*3/uL Absolute Neuts (auto) (2.0-8.3) x10*3/uL Absolute Nucleated RBC (0.0-0.012) X10*3/uL Nucleated RBC % (auto) (0.0-0.2) /100WBC Sodium (135-145) mmol/L Potassium (3.3-5.1) mmol/L Chloride (96-108) mmol/L Carbon Dioxide (22-29) mmol/L Anion Gap (12-20) BUN (9-16) mg/dL Creatinine (0.5-1.4) mg/dL Estim Creat Clear Calc Estimated GFR Random Glucose (60-115) mg/dL Calcium (8.4-10.2) mg/dL Total Bilirubin (0.0-1.0) mg/dL AST (5-31) U/L ALT (0-31) U/L Alkaline Phosphatase (39-117) U/L Total Protein (6.5-8.0) g/dL Albumin (3.5-5.0) g/dL Urine Color Urine Appearance Urine pH (5.0-9.0) Ur Specific [place] (1.005-1.025) Urine Protein Cancelled (Neg-Trace) mg/dL Urine Glucose (UA) 100 H Cancelled (Negative) mg/dL Urine Ketones Negative Cancelled (Negative) mg/dL Urine Blood Negative (Negative) Urine Nitrite (Negative) Ur Leukocyte Esterase (Negative) Urine RBC (0-2) /HPF Urine WBC (0-5) /HPF Urine WBC Clumps Ur Squamous Epith Cells (0-2) /HPF Ur Transition Epith Cell Ur Renal Epithelial Cell Calcium Oxalate Crystal Leucine Crystals Cystine Crystals Tyrosine Crystals Other Crystals Urine Bacteria (None Seen) Urine Parasites Bilirubin Casts Epithelial Casts Fatty Casts Hyaline Casts (0-2) /LPF Granular Casts Waxy Casts Broad Casts RBC Casts WBC Casts Other Casts Urine Trichomonas Urine Yeast Urine Test (NEGATIVE) Salicylates (15-30) mg/dL Urine Opiates Screen (Not Detect) Urine Fentanyl Screen (Not Detect) Acetaminophen (<30) mcg/mL Ur Barbiturates Screen (Not Detect) Ur Phencyclidine Scrn (Not Detect) Ur Amphetamines Screen (Not Detect) U Benzodiazepines Scrn (Not Detect) Urine Cocaine Screen (Not Detect) U Marijuana (THC) Screen (Not Detect) Ethyl Alcohol mg/dL 10/08/23 10/08/23 10/08/23 Range/Units 00:59 00:59 00:59 WBC (4.8-10.8) X10*3/uL RBC (4.20-5.50) X10*6/uL Hgb (12.0-16.0) g/dl Hct (37.0-47.0) % MCV (80.0-98.0) fL MCH (27.0-33.0) pg MCHC (31.0-35.0) g/dl RDW (11.0-16.0) % Plt Count (160-400) X10*3/uL MPV (9.4-12.3) fL Immature Gran % (Auto) (0.0-0.4) % Neut % (Auto) (45-73) % Lymph % (Auto) (20-40) % [place] % (Auto) (2-11) % Eos % (Auto) (0-4) % Baso % (Auto) (0-2) % Lymph # (Auto) (1.2-4.9) X10*3/uL [place] # (Auto) (0.1-1.2) X10*3/uL Eos # (Auto) (0.0-0.4) X10*3/uL Baso # (Auto) (0.0-0.2) X10*3/uL Abs Immat Gran (auto) (0.00-0.03) X10*3/uL Absolute Neuts (auto) (2.0-8.3) x10*3/uL Absolute Nucleated RBC (0.0-0.012) X10*3/uL Nucleated RBC % (auto) (0.0-0.2) /100WBC Sodium (135-145) mmol/L Potassium (3.3-5.1) mmol/L Chloride (96-108) mmol/L Carbon Dioxide (22-29) mmol/L Anion Gap (12-20) BUN (9-16) mg/dL Creatinine (0.5-1.4) mg/dL Estim Creat Clear Calc Estimated GFR Random Glucose (60-115) mg/dL Calcium (8.4-10.2) mg/dL Total Bilirubin (0.0-1.0) mg/dL AST (5-31) U/L ALT (0-31) U/L Alkaline Phosphatase (39-117) U/L Total Protein (6.5-8.0) g/dL Albumin (3.5-5.0) g/dL Urine Color Urine Appearance Urine pH (5.0-9.0) Ur Specific [place] (1.005-1.025) Urine Protein (Neg-Trace) mg/dL Urine Glucose (UA) (Negative) mg/dL Urine Ketones (Negative) mg/dL Urine Blood Cancelled (Negative) Urine Nitrite Negative Cancelled (Negative) Ur Leukocyte Esterase Moderate (2+) H Cancelled (Negative) Urine RBC 3-5 H (0-2) /HPF Urine WBC (0-5) /HPF Urine WBC Clumps Ur Squamous Epith Cells (0-2) /HPF Ur Transition Epith Cell Ur Renal Epithelial Cell Calcium Oxalate Crystal Leucine Crystals Cystine Crystals Tyrosine Crystals Other Crystals Urine Bacteria (None Seen) Urine Parasites Bilirubin Casts Epithelial Casts Fatty Casts Hyaline Casts (0-2) /LPF Granular Casts Waxy Casts Broad Casts RBC Casts WBC Casts Other Casts Urine Trichomonas Urine Yeast Urine Test (NEGATIVE) Salicylates (15-30) mg/dL Urine Opiates Screen (Not Detect) Urine Fentanyl Screen (Not Detect) Acetaminophen (<30) mcg/mL Ur Barbiturates Screen (Not Detect) Ur Phencyclidine Scrn (Not Detect) Ur Amphetamines Screen (Not Detect) U Benzodiazepines Scrn (Not Detect) Urine Cocaine Screen (Not Detect) U Marijuana (THC) Screen (Not Detect) Ethyl Alcohol mg/dL 10/08/23 10/08/23 10/08/23 Range/Units 00:59 00:59 00:59 WBC (4.8-10.8) X10*3/uL RBC (4.20-5.50) X10*6/uL Hgb (12.0-16.0) g/dl Hct (37.0-47.0) % MCV (80.0-98.0) fL MCH (27.0-33.0) pg MCHC (31.0-35.0) g/dl RDW (11.0-16.0) % Plt Count (160-400) X10*3/uL MPV (9.4-12.3) fL Immature Gran % (Auto) (0.0-0.4) % Neut % (Auto) (45-73) % Lymph % (Auto) (20-40) % [place] % (Auto) (2-11) % Eos % (Auto) (0-4) % Baso % (Auto) (0-2) % Lymph # (Auto) (1.2-4.9) X10*3/uL [place] # (Auto) (0.1-1.2) X10*3/uL Eos # (Auto) (0.0-0.4) X10*3/uL Baso # (Auto) (0.0-0.2) X10*3/uL Abs Immat Gran (auto) (0.00-0.03) X10*3/uL Absolute Neuts (auto) (2.0-8.3) x10*3/uL Absolute Nucleated RBC (0.0-0.012) X10*3/uL Nucleated RBC % (auto) (0.0-0.2) /100WBC Sodium (135-145) mmol/L Potassium (3.3-5.1) mmol/L Chloride (96-108) mmol/L Carbon Dioxide (22-29) mmol/L Anion Gap (12-20) BUN (9-16) mg/dL Creatinine (0.5-1.4) mg/dL Estim Creat Clear Calc Estimated GFR Random Glucose (60-115) mg/dL Calcium (8.4-10.2) mg/dL Total Bilirubin (0.0-1.0) mg/dL AST (5-31) U/L ALT (0-31) U/L Alkaline Phosphatase (39-117) U/L Total Protein (6.5-8.0) g/dL Albumin (3.5-5.0) g/dL Urine Color Urine Appearance Urine pH (5.0-9.0) Ur Specific [place] (1.005-1.025) Urine Protein (Neg-Trace) mg/dL Urine Glucose (UA) (Negative) mg/dL Urine Ketones (Negative) mg/dL Urine Blood (Negative) Urine Nitrite (Negative) Ur Leukocyte Esterase (Negative) Urine RBC Cancelled (0-2) /HPF Urine WBC 6-10 H Cancelled (0-5) /HPF Urine WBC Clumps Cancelled Ur Squamous Epith Cells 11-20 Cancelled (0-2) /HPF Ur Transition Epith Cell Cancelled Ur Renal Epithelial Cell Cancelled Calcium Oxalate Crystal Cancelled Leucine Crystals Cancelled Cystine Crystals Cancelled Tyrosine Crystals Cancelled Other Crystals Cancelled Urine Bacteria 2+ (None Seen) Urine Parasites Bilirubin Casts Epithelial Casts Fatty Casts Hyaline Casts (0-2) /LPF Granular Casts Waxy Casts Broad Casts RBC Casts WBC Casts Other Casts Urine Trichomonas Urine Yeast Urine Test (NEGATIVE) Salicylates (15-30) mg/dL Urine Opiates Screen (Not Detect) Urine Fentanyl Screen (Not Detect) Acetaminophen (<30) mcg/mL Ur Barbiturates Screen (Not Detect) Ur Phencyclidine Scrn (Not Detect) Ur Amphetamines Screen (Not Detect) U Benzodiazepines Scrn (Not Detect) Urine Cocaine Screen (Not Detect) U Marijuana (THC) Screen (Not Detect) Ethyl Alcohol mg/dL 10/08/23 10/08/23 Range/Units 00:59 00:59 WBC (4.8-10.8) X10*3/uL RBC (4.20-5.50) X10*6/uL Hgb (12.0-16.0) g/dl Hct (37.0-47.0) % MCV (80.0-98.0) fL MCH (27.0-33.0) pg MCHC (31.0-35.0) g/dl RDW (11.0-16.0) % Plt Count (160-400) X10*3/uL MPV (9.4-12.3) fL Immature Gran % (Auto) (0.0-0.4) % Neut % (Auto) (45-73) % Lymph % (Auto) (20-40) % [place] % (Auto) (2-11) % Eos % (Auto) (0-4) % Baso % (Auto) (0-2) % Lymph # (Auto) (1.2-4.9) X10*3/uL [place] # (Auto) (0.1-1.2) X10*3/uL Eos # (Auto) (0.0-0.4) X10*3/uL Baso # (Auto) (0.0-0.2) X10*3/uL Abs Immat Gran (auto) (0.00-0.03) X10*3/uL Absolute Neuts (auto) (2.0-8.3) x10*3/uL Absolute Nucleated RBC (0.0-0.012) X10*3/uL Nucleated RBC % (auto) (0.0-0.2) /100WBC Sodium (135-145) mmol/L Potassium (3.3-5.1) mmol/L Chloride (96-108) mmol/L Carbon Dioxide (22-29) mmol/L Anion Gap (12-20) BUN (9-16) mg/dL Creatinine (0.5-1.4) mg/dL Estim Creat Clear Calc Estimated GFR Random Glucose (60-115) mg/dL Calcium (8.4-10.2) mg/dL Total Bilirubin (0.0-1.0) mg/dL AST (5-31) U/L ALT (0-31) U/L Alkaline Phosphatase (39-117) U/L Total Protein (6.5-8.0) g/dL Albumin (3.5-5.0) g/dL Urine Color Urine Appearance Urine pH (5.0-9.0) Ur Specific [place] (1.005-1.025) Urine Protein (Neg-Trace) mg/dL Urine Glucose (UA) (Negative) mg/dL Urine Ketones (Negative) mg/dL Urine Blood (Negative) Urine Nitrite (Negative) Ur Leukocyte Esterase (Negative) Urine RBC (0-2) /HPF Urine WBC (0-5) /HPF Urine WBC Clumps Ur Squamous Epith Cells (0-2) /HPF Ur Transition Epith Cell Ur Renal Epithelial Cell Calcium Oxalate Crystal Leucine Crystals Cystine Crystals Tyrosine Crystals Other Crystals Urine Bacteria Cancelled (None Seen) Urine Parasites Cancelled Bilirubin Casts Cancelled Epithelial Casts Cancelled Fatty Casts Cancelled Hyaline Casts 0-2 Cancelled (0-2) /LPF Granular Casts Cancelled Waxy Casts Cancelled Broad Casts Cancelled RBC Casts Cancelled WBC Casts Cancelled Other Casts Cancelled Urine Trichomonas Cancelled Urine Yeast Cancelled Urine Test NEGATIVE (NEGATIVE) Salicylates (15-30) mg/dL Urine Opiates Screen Not Detected (Not Detect) Urine Fentanyl Screen Not Detected (Not Detect) Acetaminophen (<30) mcg/mL Ur Barbiturates Screen Not Detected (Not Detect) Ur Phencyclidine Scrn Not Detected (Not Detect) Ur Amphetamines Screen Not Detected (Not Detect) U Benzodiazepines Scrn Not Detected (Not Detect) Urine Cocaine Screen Not Detected (Not Detect) U Marijuana (THC) Screen Not Detected (Not Detect) Ethyl Alcohol mg/dL Discharge Plan Discharge Clinical Impression: Depression with suicidal ideation Patient Disposition: Home, Self-Care Additional Instructions: Please continue your regular medications. Please follow-up with your regular providers. If you are feeling worse you can contact the Crisis Hotline 24 hours a day at [phone]. Prescriptions: No Action fluoxetine 40 mg capsule 80 mg PO DAILY lorazepam 0.5 mg tablet 0.5 mg PO DAILY PRN (Reason: Anxiety) famotidine 10 mg Tablet 10 mg PO BID@0630,1630 fluphenazine HCl 5 mg tablet 5 mg PO BID albuterol sulfate [Ventolin HFA] 90 mcg/actuation HFA aerosol inhaler 2 inh inhalation Q4H PRN (Reason: Shortness Of Breath Or Wheezing) montelukast 10 mg tablet 10 mg PO BEDTIME metformin 500 mg tablet 500 mg PO BID atorvastatin 10 mg tablet 10 mg PO DAILY lamotrigine 25 mg tablet 25 mg PO DAILY pantoprazole 40 mg tablet,delayed release (DR/EC) 40 mg PO DAILY@0630 trazodone 150 mg tablet 150 mg PO BEDTIME buspirone 10 mg tablet 10 mg PO BID benztropine 1 mg tablet 1 mg PO BID fluticasone propion-salmeterol [Advair Diskus] 100-50 mcg/dose blister with device 1 ea inhalation BID mirtazapine 7.5 mg tablet 7.5 mg PO BEDTIME Interventions: [place]-Suicide Risk Severity Scale Last Done: 10/09/23 10:01
[2023-10-08] MEDS: LORazepam 1 MG TABLET PO (05:49)
--- NOTE | 2023-10-08 05:52 | PC.NURSE ---
client woke and stated she gwen a nightmare, pursued po ativan for anxiety, pending effect.
[2023-10-08 09:53] LABS: UPreg QC Valid YES; Urine Pregnancy NEGATIVE (NEGATIVE)
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
[2023-10-08 15:38] VITALS: BP 111/76; PULSE 99; RESP 16; TEMP 36.1; O2SAT 97
--- NOTE | 2023-10-08 16:26 | PC.NURSE ---
pt expressing increased frustration at having to stay overnight she wants to sleep in [her] own bed, pt previously had been talking about getting sectioned due to increased visits and an inability to stay safe d/t increased triggers this time of year. CARE team notified and planning on talking to pt.
[2023-10-08] MEDS: Famotidine 20 MG TABLET 10 MG PO (17:47)
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
[2023-10-08] MEDS: LORazepam 0.5 MG TABLET PO (19:11)
[2023-10-08] MEDS: Benztropine Mesylate 1 MG TABLET PO (19:54)
[2023-10-08] MEDS: Mirtazapine 7.5 MG TABLET PO (19:54)
[2023-10-08] MEDS: Montelukast Sodium 10 MG TABLET PO (19:54)
[2023-10-08] MEDS: busPIRone HCl 10 MG TABLET PO (19:54)
[2023-10-08] MEDS: traZODone HCL 50 MG TABLET 150 MG PO (19:54)
[2023-10-08] MEDS: metFORMIN HCl 500 MG TABLET PO (19:54)
[2023-10-08] MEDS: fluPHENAZine HCl 5 MG TABLET PO (19:54)
[2023-10-09] MEDS: Fluticasone/Vilanterol 100/25 BLST.W.DEV 1 PUFF INHALE (09:42)
[2023-10-09] MEDS: FLUoxetine HCl 20 MG CAPSULE 80 MG PO (09:48)
[2023-10-09] MEDS: lamoTRIgine 25 MG TABLET PO (09:49)
[2023-10-09] MEDS: Atorvastatin Calcium 10 MG TABLET PO (09:49)
[2023-10-09] MEDS: metFORMIN HCl 500 MG TABLET PO (09:49)
[2023-10-09] MEDS: busPIRone HCl 10 MG TABLET PO (09:49)
[2023-10-09] MEDS: Benztropine Mesylate 1 MG TABLET PO (09:49)
[2023-10-09 09:57] VITALS: BP 114/66; PULSE 92; RESP 16; TEMP 36.4; O2SAT 98
--- NOTE | 2023-10-09 09:57 | PC.NURSE ---
Pt awake, request to go home prior to 1030, pt relays telling CARE team, awaiting dispo at this time. Med given, awaiting Prolixin from pharmacy. VSS. Pt denies SI/HI or A/V hallucinations. Calm and cooperative.
--- NOTE | 2023-10-09 10:53 | MHC.CARE ---
t/w has attempted to reach patient's correction x2, utilizing the following numbers, and [phone]. Confidential VM's left on each VM, requesting call back.
[2023-10-09] MEDS: fluPHENAZine HCl 5 MG TABLET PO (11:27)
== END 2023-10-09 11:31 | disposition home or self-care (01) ==
PROVIDERS: Physician Assistant; Emergency Provider Emergency Medicine
DX: F32.A Depression, unspecified (principal); R45.851 Suicidal ideations; S50.812A Abrasion of left forearm, initial encounter; F43.10 Post-traumatic stress disorder, unspecified; E11.9 Type 2 diabetes mellitus without complications; X78.1XXA Intentional self-harm by knife, initial encounter; Y93.9 Activity, unspecified; Y92.9 Unspecified place or not applicable; Y99.9 Unspecified external cause status
CPT/HCPCS: 36415; 80053; 80143; 80179; 80307; 81001; 81025; 85025; 87086; 99285; S9485

== ENCOUNTER 2023-10-09 17:54 | Inpatient (IN) | payer MEDICARE, MEDICAID, SELFPAY ==
[2023-10-09 18:15] VITALS: BP 149/82; PULSE 124; RESP 20; TEMP 36.3; O2SAT 98; BMI 38.8
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
--- NOTE | 2023-10-09 19:19 | PC.NURSE ---
assumed care of pt, called pharmacy for Med Rec completion
[2023-10-09 20:17] LABS: Amphetamine Screen Urine Not Detected (Not Detect); Barbiturates, Urine Not Detected (Not Detect); Benzodiazepines Screen Urine Not Detected (Not Detect); Cannabinoid Screen Urine Not Detected (Not Detect); Cocaine Screen Urine Not Detected (Not Detect); Fentanyl, urine Not Detected (Not Detect); Opiate Screen Urine Not Detected (Not Detect); Phencyclidine Screen Urine Not Detected (Not Detect)
--- NOTE | 2023-10-09 21:14 | PHA.MEDREC ---
Pharmacy Consult ? Medication Reconciliation Pharmacy has completed the medication reconciliation.Med rec completed, pt just dischared 10/07/23, lisinopril and prazosin discontinued at that time.
[2023-10-09 21:38] LABS: Alanine Aminotransferase 18 U/L (0-31); Albumin Level 4.3 g/dL (3.5-5.0); Alkaline Phosphatase 112 U/L (39-117); Anion Gap 17 (12-20); Aspartate Amino Transferase 22 U/L (5-31); Bilirubin Total 0.1 mg/dL (0.0-1.0); Blood Urea Nitrogen 12 mg/dL (9-16); Calcium 9.5 mg/dL (8.4-10.2); Carbon Dioxide 20 mmol/L (22-29); Chloride 109 mmol/L (96-108); Creatinine Clr Calc Pharmacy 98.5; Estimated Glomerular Filt Rate > 60; Glucose Random 159 mg/dL (60-115); Potassium 3.7 mmol/L (3.3-5.1); Sodium 142 mmol/L (135-145); Total Protein 7.5 g/dL (6.5-8.0)
[2023-10-09 21:41] LABS: Acetaminophen LAB < 3 mcg/mL (<30); Salicylate < 5.0 mg/dL (15-30)
[2023-10-09 23:17] LABS: Basophils Percent Auto 0.4 % (0-2); Eosinophils Absolute Auto 0.2 X10*3/uL (0.0-0.4); Eosinophils Percent Auto 2.4 % (0-4); Hematocrit 33.5 % (37.0-47.0); Hemoglobin 10.7 g/dl (12.0-16.0); Imm Gran Abs Auto 0.04 X10*3/uL (0.00-0.03); Imm Gran Pct Auto 0.4 % (0.0-0.4); Lymphocytes Absolute Auto 2.1 X10*3/uL (1.2-4.9); Lymphocytes Percent Auto 22.9 % (20-40); MANUAL DIFF FLAG NO; Mean Corpuscular HGB Conc 31.9 g/dl (31.0-35.0); Mean Corpuscular Hemoglobin 27.4 pg (27.0-33.0); Mean Corpuscular Volume 85.9 fL (80.0-98.0); Mean Platelet Volume 9.6 fL (9.4-12.3); Monocytes Absolute Auto 0.8 X10*3/uL (0.1-1.2); Monocytes Percent Auto 9.2 % (2-11); Neutrophils Absolute Auto 5.8 x10*3/uL (2.0-8.3); Neutrophils Percent Auto 64.7 % (45-73); Platelet Count 328 X10*3/uL (160-400); Red Cell Distribution Width 13.6 % (11.0-16.0)
[2023-10-09] MEDS: LORazepam 1 MG TABLET 2 MG PO (23:55)
--- NOTE | 2023-10-10 | ECG_ITS ---
Test Reason : check for prolonged qt Blood Pressure : / mmHG Vent. Rate : 086 BPM Atrial Rate : 086 BPM P-R Int : 138 ms QRS Dur : 078 ms QT Int : 384 ms P-R-T Axes : 028 042 049 degrees QTc Int : 459 ms Normal sinus rhythm Normal ECG When compared with ECG of 05-OCT-2023 00:50, [place] interval has decreased Referred By: Raymond Contreras Electronically Signed By:MAURI COLE
[2023-10-10] MEDS: Benztropine Mesylate 1 MG TABLET PO ×3 (00:25→20:51)
[2023-10-10] MEDS: fluPHENAZine HCl 5 MG TABLET PO ×3 (00:25→20:50)
[2023-10-10] MEDS: traZODone HCL 50 MG TABLET 150 MG PO ×2 (00:25→20:51)
[2023-10-10] MEDS: Montelukast Sodium 10 MG TABLET PO ×2 (00:25→20:50)
[2023-10-10] MEDS: Mirtazapine 7.5 MG TABLET PO ×2 (00:25→20:50)
[2023-10-10] MEDS: busPIRone HCl 10 MG TABLET PO ×3 (00:28→20:50)
[2023-10-10 00:56] VITALS: BP 152/97; PULSE 100; RESP 17; TEMP 36.7; O2SAT 98
[2023-10-10] MEDS: Omeprazole 20 MG CAPSULE.DR PO (06:28)
[2023-10-10] MEDS: Famotidine 20 MG TABLET 10 MG PO ×2 (06:28→15:52)
[2023-10-10] MEDS: Atorvastatin Calcium 10 MG TABLET PO (07:41)
[2023-10-10] MEDS: lamoTRIgine 25 MG TABLET PO (07:41)
[2023-10-10] MEDS: metFORMIN HCl 500 MG TABLET PO ×2 (07:41→15:52)
[2023-10-10] MEDS: FLUoxetine HCl 20 MG CAPSULE 80 MG PO (07:41)
[2023-10-10 08:07] VITALS: BP 150/88; PULSE 86; RESP 16; TEMP 36.3; O2SAT 98
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
[2023-10-10] MEDS: Fluticasone/Vilanterol 100/25 BLST.W.DEV 1 PUFF INHALE (09:01)
[2023-10-10 13:40] LABS: Appearance Urine Clear; Glucose Urine UA Negative (Negative); Leukocyte Esterase Urine Trace (Negative); Nitrite Urine Negative (Negative); PH 5.5 (5.0-9.0); UMIC TRIGGER UACC YES; Urine Blood Large (3+) (Negative); Urine Ketones Negative (Negative); Urine Protein Trace mg/dL (Neg-Trace)
[2023-10-10 13:41] LABS: Color Urine PINK
[2023-10-10 13:43] LABS: Bacteria Urine None Seen (None Seen); Hyaline Casts Urine 0-2 /LPF (0-2); RBC Urine >20 /HPF (0-2); Squamous Epithelial Cell Urine 0-2 /HPF (0-2); WBC Urine 0-5 /HPF (0-5)
[2023-10-10 13:53] LABS: IDNOW Serial# BCCEAD1C
[2023-10-10 13:54] LABS: COVID-19 Test Negative (Negative)
--- NOTE | 2023-10-10 15:18 | PC.NURSE ---
report given to M3 RN. Awaiting bed assignment at this time
[2023-10-10 15:24] VITALS: BP 145/91; PULSE 86; RESP 20; TEMP 36.1; O2SAT 97
[2023-10-10] MEDS: LORazepam 0.5 MG TABLET PO (17:08)
[2023-10-10 17:54] VITALS: BP 137/90; PULSE 98; RESP 18; TEMP 36.6; O2SAT 96
[2023-10-10 17:55] VITALS: BMI 36.7
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
[2023-10-10] MEDS: hydrOXYzine HCL 25 MG TABLET PO (18:57)
[2023-10-10 20:00] VITALS: BP 138/92; PULSE 95; RESP 20; TEMP 35.9; O2SAT 98
[2023-10-10] MEDS: Mineral OiL enema 133 ML ENEMA PR (21:33)
[2023-10-11] MEDS: hydrOXYzine HCL 25 MG TABLET PO (01:19)
[2023-10-11] MEDS: Famotidine 20 MG TABLET 10 MG PO ×2 (06:47→17:21)
[2023-10-11] MEDS: Omeprazole 20 MG CAPSULE.DR PO (06:47)
[2023-10-11 07:00] VITALS: BMI 38.8
[2023-10-11 08:03] VITALS: BP 137/65; PULSE 80; RESP 16; TEMP 36.5; O2SAT 93
[2023-10-11] MEDS: Atorvastatin Calcium 10 MG TABLET PO (08:52)
[2023-10-11] MEDS: FLUoxetine HCl 20 MG CAPSULE 80 MG PO (08:52)
[2023-10-11] MEDS: fluPHENAZine HCl 5 MG TABLET PO ×2 (08:52→21:42)
[2023-10-11] MEDS: Benztropine Mesylate 1 MG TABLET PO ×2 (08:53→21:42)
[2023-10-11] MEDS: lamoTRIgine 25 MG TABLET PO (08:53)
[2023-10-11] MEDS: busPIRone HCl 10 MG TABLET PO ×2 (08:53→21:43)
[2023-10-11] MEDS: metFORMIN HCl 500 MG TABLET PO ×2 (08:53→17:21)
[2023-10-11 09:05] LABS: Alanine Aminotransferase 14 U/L (0-31); Albumin Level 3.6 g/dL (3.5-5.0); Alkaline Phosphatase 113 U/L (39-117); Anion Gap 15 (12-20); Aspartate Amino Transferase 22 U/L (5-31); Bilirubin Total 0.1 mg/dL (0.0-1.0); Blood Urea Nitrogen 17 mg/dL (9-16); Calcium 9.1 mg/dL (8.4-10.2); Carbon Dioxide 17 mmol/L (22-29); Chloride 113 mmol/L (96-108); Cholesterol 161 mg/dL (<200); Creatinine Clr Calc Pharmacy 111.5; Estimated Glomerular Filt Rate > 60; Glucose Fasting 113 mg/dL (60-99); HDL Cholesterol 31 mg/dL (>40); LDL Cholesterol Calculated 73 mg/dL (<100); Potassium 4.6 mmol/L (3.3-5.1); Sodium 140 mmol/L (135-145); Total Protein 6.5 g/dL (6.5-8.0); Triglycerides 288 mg/dL (<150)
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
[2023-10-11] MEDS: chlorproMAZINE HCl 25 MG TABLET 50 MG PO ×2 (12:38→17:22)
--- NOTE | 2023-10-11 12:50 | PC.NURSE ---
Pt refused flu vaccine at this time
[2023-10-11 21:00] VITALS: BP 121/68; PULSE 102; TEMP 36.7; O2SAT 96
[2023-10-11] MEDS: Mirtazapine 7.5 MG TABLET PO (21:42)
[2023-10-11] MEDS: traZODone HCL 50 MG TABLET 150 MG PO (21:42)
[2023-10-11] MEDS: Montelukast Sodium 10 MG TABLET PO (21:42)
[2023-10-11] MEDS: Prazosin HCL 1 MG CAPSULE 2 MG PO (21:43)
[2023-10-12] MEDS: Famotidine 20 MG TABLET 10 MG PO (06:53)
[2023-10-12] MEDS: Omeprazole 20 MG CAPSULE.DR PO (06:53)
[2023-10-12 07:25] VITALS: BP 122/75; PULSE 77; RESP 18; TEMP 36.2; O2SAT 94
[2023-10-12] MEDS: metFORMIN HCl 500 MG TABLET PO (09:07)
[2023-10-12] MEDS: FLUoxetine HCl 20 MG CAPSULE 80 MG PO (09:07)
[2023-10-12] MEDS: lamoTRIgine 25 MG TABLET PO (09:08)
[2023-10-12] MEDS: busPIRone HCl 10 MG TABLET PO (09:08)
[2023-10-12] MEDS: Benztropine Mesylate 1 MG TABLET PO (09:08)
[2023-10-12] MEDS: fluPHENAZine HCl 5 MG TABLET PO (09:08)
[2023-10-12] MEDS: Atorvastatin Calcium 10 MG TABLET PO (09:09)
[2023-10-12] MEDS: Fluticasone/Vilanterol 100/25 BLST.W.DEV 1 PUFF INHALE (09:09)
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
== END 2023-10-12 11:40 | disposition home or self-care (01) | DRG 885 ==
LOC: HO.ED 10-10 07:28 → HO.PADLT16 10-10 15:37
PROVIDERS: Nurse Practitioner Family; Social Worker; Admitting Provider Psychiatry & Neurology Psychiatry; Emergency Provider Emergency Medicine Emergency Medical Services; Visit Provider Psychiatry & Neurology Psychiatry
DX: F33.3 Major depressive disorder, recurrent, severe with psychotic symptoms (principal); R45.851 Suicidal ideations; F60.3 Borderline personality disorder; F43.10 Post-traumatic stress disorder, unspecified; Z79.51 Long term (current) use of inhaled steroids; Z79.84 Long term (current) use of oral hypoglycemic drugs; Z79.899 Other long term (current) drug therapy
CPT/HCPCS: 36415; 80053; 80061; 80143; 80179; 80307; 81001; 81025; 85025; 87086; 87635; 93005; 99285; S9485

== ENCOUNTER → 2023-10-10 13:42 | Outpatient (BNV) | payer MEDICARE, MEDICAID, SELFPAY | PROVIDERS: Admitting Provider Psychiatry & Neurology Psychiatry; Emergency Provider Emergency Medicine Emergency Medical Services; Visit Provider Internal Medicine | DX: I45.81 Long QT syndrome (principal) | CPT/HCPCS: 93010 ==

== ENCOUNTER → 2023-10-10 15:31 | Outpatient (BNV) | payer MEDICARE, MEDICAID, SELFPAY | PROVIDERS: Admitting Provider Psychiatry & Neurology Psychiatry; Emergency Provider Emergency Medicine Emergency Medical Services; Visit Provider Registered Nurse | DX: F60.3 Borderline personality disorder (principal); F33.3 Major depressive disorder, recurrent, severe with psychotic symptoms; F43.11 Post-traumatic stress disorder, acute | CPT/HCPCS: 90792; 99238 ==

== ENCOUNTER 2023-10-13 12:45 | Emergency (ER) | payer MEDICARE, MEDICAID, SELFPAY ==
--- NOTE | 2023-10-13 | ECG_ITS ---
Test Reason : ABDOMINAL PAIN Blood Pressure : / mmHG Vent. Rate : 085 BPM Atrial Rate : 085 BPM P-R Int : 156 ms QRS Dur : 080 ms QT Int : 388 ms P-R-T Axes : 041 043 046 degrees QTc Int : 461 ms Normal sinus rhythm Normal ECG When compared with ECG of 10-OCT-2023 13:42, No significant change was found Referred By: Sy Allison Electronically Signed By:MAURI COLE
--- NOTE | ~2023-10-13 | CT_ITS ---
EXAMINATION: CT ABDOMEN AND PELVIS WITHOUT CONTRAST CLINICAL INFORMATION: Pain. COMPARISON: 06/10/2015. TECHNIQUE: Multidetector volumetric imaging was performed from the superior aspect of the liver through the pubic symphysis. Sagittal and coronal reformatted images were obtained on the technologist's workstation. This CT examination was performed using dose optimization techniques as appropriate, variously including the following: *Automated exposure control *Adjustment of mA and/or kV according to patient size (this includes techniques or standardized protocols for targeted exams where dose is matched to indication/reason for exam; i.e. extremities or head) *Use of iterative reconstruction technique DLP: 901 mGy-cm FINDINGS: LUNG BASES: There are small bilateral pleural effusions. There is a minimal pleural effusion. LIVER, GALLBLADDER, AND BILIARY TREE: The liver is normal in size, shape, and attenuation. No focal hepatic lesion or biliary ductal dilatation is present. The gallbladder is unremarkable with no evidence of radiopaque gallstones, gallbladder wall thickening, or obvious pericholecystic inflammatory changes. PANCREAS: Unremarkable. SPLEEN: Unremarkable. ADRENAL GLANDS: Unremarkable. KIDNEYS AND URETERS: The kidneys are normal in size, shape, and attenuation. No hydronephrosis, hydroureter, or calculi seen. No perinephric stranding. BLADDER: Unremarkable. GASTROINTESTINAL TRACT: There is retained stool. The appendix is visualized and is within normal limits ABDOMINAL WALL: There is a small umbilical hernia containing fat. LYMPH NODES: Normal. VASCULAR: Unremarkable. PELVIC VISCERA: There is a 1.8 cm rounded fatty density within the right adnexa. OSSEOUS STRUCTURES: Unremarkable. CT/CT abdomen pelvis wo IV con IMPRESSION: 1. Small bilateral pleural effusions. 2. Small umbilical hernia containing fat. 3. 1.8 cm rounded fatty density within the right adnexa, likely a dermoid. A similar structure was present previously. 4. Retained stool. Fleischner guidelines were followed.
[2023-10-13 12:56] VITALS: BP 141/91; BP 164/108; PULSE 118; PULSE 122; RESP 19; TEMP 36.8; O2SAT 95; O2SAT 96
[2023-10-13] MEDS: LORazepam 1 MG TABLET PO ×2 (12:58→21:03)
[2023-10-13 13:04] VITALS: BMI 32.0
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
[2023-10-13 13:16] LABS: MANUAL DIFF FLAG NO
[2023-10-13 13:22] LABS: UPreg QC Valid YES; Urine Pregnancy NEGATIVE (NEGATIVE)
[2023-10-13 13:23] LABS: Basophils Absolute Auto 0.1 X10*3/uL (0.0-0.2); Basophils Percent Auto 0.6 % (0-2); Eosinophils Absolute Auto 0.3 X10*3/uL (0.0-0.4); Eosinophils Percent Auto 3.4 % (0-4); Hematocrit 33.1 % (37.0-47.0); Hemoglobin 10.8 g/dl (12.0-16.0); Imm Gran Abs Auto 0.04 X10*3/uL (0.00-0.03); Imm Gran Pct Auto 0.5 % (0.0-0.4); Lymphocytes Absolute Auto 1.5 X10*3/uL (1.2-4.9); Lymphocytes Percent Auto 18.2 % (20-40); Mean Corpuscular HGB Conc 32.6 g/dl (31.0-35.0); Mean Corpuscular Hemoglobin 27.6 pg (27.0-33.0); Mean Corpuscular Volume 84.7 fL (80.0-98.0); Mean Platelet Volume 9.9 fL (9.4-12.3); Monocytes Absolute Auto 0.7 X10*3/uL (0.1-1.2); Monocytes Percent Auto 8.5 % (2-11); Neutrophils Absolute Auto 5.6 x10*3/uL (2.0-8.3); Neutrophils Percent Auto 68.8 % (45-73); Platelet Count 322 X10*3/uL (160-400); Red Blood Count 3.91 X10*6/uL (4.20-5.50); Red Cell Distribution Width 13.6 % (11.0-16.0); White Blood Count 8.2 X10*3/uL (4.8-10.8)
[2023-10-13] MEDS: Nicotine 21 MG PATCH.TD24 TRANSDERMA (13:31)
[2023-10-13 13:32] LABS: Alanine Aminotransferase 13 U/L (0-31); Albumin Level 4.5 g/dL (3.5-5.0); Alkaline Phosphatase 107 U/L (39-117); Anion Gap 17 (12-20); Aspartate Amino Transferase 17 U/L (5-31); Bilirubin Direct < 0.2 mg/dL (0.0-0.5); Bilirubin Total 0.2 mg/dL (0.0-1.0); Blood Urea Nitrogen 14 mg/dL (9-16); Calcium 9.5 mg/dL (8.4-10.2); Carbon Dioxide 21 mmol/L (22-29); Chloride 104 mmol/L (96-108); Estimated Glomerular Filt Rate > 60; Glucose Random 156 mg/dL (60-115); Potassium 4.1 mmol/L (3.3-5.1); Sodium 138 mmol/L (135-145); Total Protein 7.6 g/dL (6.5-8.0)
[2023-10-13 13:34] LABS: COVID-19 Test Negative (Negative); IDNOW Serial# BCCEAD1C
[2023-10-13 13:35] LABS: Amphetamine Screen Urine Not Detected (Not Detect); Barbiturates, Urine Not Detected (Not Detect); Benzodiazepines Screen Urine Not Detected (Not Detect); Cannabinoid Screen Urine Not Detected (Not Detect); Cocaine Screen Urine Not Detected (Not Detect); Fentanyl, urine Not Detected (Not Detect); Opiate Screen Urine Not Detected (Not Detect); Phencyclidine Screen Urine Not Detected (Not Detect)
--- NOTE | 2023-10-13 15:34 | PC.NURSE ---
pt refusing blood draw at this time
[2023-10-13 21:02] VITALS: BP 153/91; PULSE 87; RESP 18; TEMP 37.2; O2SAT 97
--- NOTE | 2023-10-13 21:45 | PC.NURSE ---
Medication rec completed by this RN, previous admission record used
[2023-10-13] MEDS: Ibuprofen 600 MG TABLET PO (22:08)
[2023-10-13 22:43] LABS: Acetaminophen LAB < 3 mcg/mL (<30); Salicylate < 5.0 mg/dL (15-30)
[2023-10-13 22:50] LABS: Appearance Urine Clear; Color Urine Yellow; Glucose Urine UA Negative (Negative); Leukocyte Esterase Urine Small (1+) (Negative); Nitrite Urine Negative (Negative); UMIC TRIGGER UACC YES; Urine Blood Large (3+) (Negative); Urine Ketones Negative (Negative); Urine Protein Negative (Neg-Trace)
[2023-10-13 23:03] LABS: Bacteria Urine Trace (None Seen); Hyaline Casts Urine 0-2 /LPF (0-2); RBC Urine 0-2 /HPF (0-2); UACC Culture Trigger YES
[2023-10-13 23:35] VITALS: BP 153/100; PULSE 91; RESP 16; TEMP 36.6; O2SAT 98
--- NOTE | 2023-10-13 23:42 | PC.NURSE ---
Assumed care of pt. Pt seated in front of nursing station, c/o lower mid abodominal pain radiating to L flank. MD Allison present for assessment, and stated will order medications for pt. After MD left Pod, pt began to complain of dizziness and instability, but was noted to be standing and ambulating with steady gait. Assisted pt to chair without complications. Night time ordered medications offered to pt, pt declined all except new orders placed by MD. Security called for assist transport for pt to CT for abdominal imaging. No other complications at this time.
[2023-10-14] MEDS: Ondansetron ODT 4 MG TAB.RAPDIS TRANSLINGU (00:14)
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
[2023-10-14 00:58] VITALS: BP 165/92; PULSE 90; RESP 16; TEMP 36.7; O2SAT 97
--- NOTE | 2023-10-14 01:00 | MHC.EDTECH ---
Patient inform staff that she fell and hit her head ,this pct call security to check camera ,Patient was seen on [facility] lower herself to the floor ,vitals and blood sugar was check ,RN Jeffrey aware ,Prior to Patient making this statement Patient was check on and found to be in no distress ,
[2023-10-14 01:03] LABS: Glucose, Whole Blood 106 mg/dL (60-115)
[2023-10-14] MEDS: cefuroxime axetiL 250 MG TABLET PO (01:25)
--- NOTE | 2023-10-14 01:30 | PC.NURSE ---
After initially declining to take home night time medications, stating they are poison , pt now requesting to take all night time medications. approved for delayed administration.
[2023-10-14] MEDS: fluPHENAZine HCl 5 MG TABLET PO ×2 (01:36→09:07)
[2023-10-14] MEDS: Famotidine 20 MG TABLET 10 MG PO ×2 (01:36→06:23)
[2023-10-14] MEDS: traZODone HCL 50 MG TABLET 150 MG PO (01:36)
[2023-10-14] MEDS: Benztropine Mesylate 1 MG TABLET PO ×2 (01:37→09:00)
[2023-10-14] MEDS: metFORMIN HCl 500 MG TABLET PO ×2 (01:37→09:00)
[2023-10-14] MEDS: busPIRone HCl 10 MG TABLET PO ×2 (01:37→09:00)
[2023-10-14] MEDS: Montelukast Sodium 10 MG TABLET PO (01:37)
--- NOTE | 2023-10-14 02:20 | PC.NURSE ---
pt refused starting dose of macrobid, requesting to take in the morning with remainder of her meds.
--- NOTE | 2023-10-14 04:29 | PC.NURSE ---
Pt remains lying on stretcher, eyes closed, respirations even and unlabored, no acute medical or behavioral issues at this time. Continuing plan of care.
[2023-10-14 06:03] VITALS: BP 112/68; PULSE 75; RESP 16; TEMP 36.4; O2SAT 97
[2023-10-14] MEDS: lamoTRIgine 25 MG TABLET PO (09:00)
[2023-10-14] MEDS: FLUoxetine HCl 20 MG CAPSULE 80 MG PO (09:00)
[2023-10-14] MEDS: Atorvastatin Calcium 10 MG TABLET PO (09:00)
[2023-10-14] MEDS: Nitrofurantoin Monohyd/M-Cryst 100 MG CAPSULE PO (09:07)
--- NOTE | 2023-10-14 13:15 | PC.NURSE ---
PT SEEN BY CARE TEAM AND IS CLEARED FOR DISCHARGE. SHE WAS GIVEN HER BELONGINGS AND DISCHARGE INSTRUCTIONS REVIEWED WITH HER. PT ESCORTED TO WAITING ROOM TO WAIT FOR LYFT PROVIDED BY CARE TEAM. STEADY GAIT ON DISCHARGE.
== END 2023-10-14 13:13 | disposition home or self-care (01) ==
PROVIDERS: Emergency Provider Emergency Medicine
DX: F33.1 Major depressive disorder, recurrent, moderate (principal); R45.851 Suicidal ideations; K59.00 Constipation, unspecified; K42.9 Umbilical hernia without obstruction or gangrene; R10.9 Unspecified abdominal pain; J90 Pleural effusion, not elsewhere classified; Z20.828 Contact with and (suspected) exposure to other viral communicable diseases; Z20.822 Contact with and (suspected) exposure to COVID-19; Z79.899 Other long term (current) drug therapy; Z87.891 Personal history of nicotine dependence
CPT/HCPCS: 36415; 74176; 80048; 80076; 80143; 80179; 80307; 81001; 81025; 82947; 85025; 87086; 87635; 93005; 99285; S9485

== ENCOUNTER → 2023-10-13 22:28 | Outpatient (BNV) | payer MEDICARE, MEDICAID, SELFPAY | PROVIDERS: Emergency Provider Emergency Medicine; Visit Provider Internal Medicine | DX: R10.84 Generalized abdominal pain (principal) | CPT/HCPCS: 93010 ==

== ENCOUNTER 2023-10-24 18:21 | Emergency (ER) | payer MEDICARE, MEDICAID, SELFPAY ==
[2023-10-24 18:38] VITALS: BP 158/103; PULSE 99; RESP 18; TEMP 36.6; O2SAT 95; BMI 37.8
--- NOTE | 2023-10-24 19:05 | ED.GENADULT ---
HPI - General Adult General Chief complaint: Psychiatric Symptoms Stated complaint: hearing voices, cut L arm w/ piece of glass Time Seen by Provider: 10/24/23 19:01 History of Present Illness HPI narrative: The patient is a 47-year-old female with a history of severe chronic mental illness who lives at a [facility] and has frequent emergency room visits. Apparently she was not feeling well today and made some superficial cuts on her left forearm with a piece of glass. She then called an ambulance and was brought to the hospital. She says that someone made her angry and upset. Other than the superficial cutting on her left arm she denies doing anything else to harm herself. She does not feel ill otherwise. Related Data Home Medications Medication Instructions Recorded Confirmed fluoxetine 40 mg capsule 80 mg PO DAILY 08/25/23 10/13/23 lorazepam 0.5 mg tablet 0.5 mg PO DAILY PRN Anxiety 08/31/23 10/13/23 albuterol sulfate 90 mcg/actuation 2 inh inhalation Q4H PRN Shortness 09/17/23 10/13/23 aerosol inhaler (Ventolin HFA) Of Breath Or Wheezing famotidine 10 mg tablet 10 mg PO BID@0630,1630 09/17/23 10/13/23 fluphenazine HCl 5 mg tablet 5 mg PO BID 09/17/23 10/13/23 montelukast 10 mg tablet 10 mg PO BEDTIME 09/17/23 10/13/23 atorvastatin 10 mg tablet 10 mg PO DAILY 10/04/23 10/13/23 benztropine 1 mg tablet 1 mg PO BID 10/04/23 10/13/23 buspirone 10 mg tablet 10 mg PO BID 10/04/23 10/13/23 fluticasone 100 mcg-salmeterol 50 1 ea inhalation BID 10/04/23 10/13/23 mcg/dose blistr powdr for inhalation (Advair Diskus) lamotrigine 25 mg tablet 25 mg PO DAILY 10/04/23 10/13/23 metformin 500 mg tablet 500 mg PO BID 10/04/23 10/13/23 mirtazapine 7.5 mg tablet 7.5 mg PO BEDTIME 10/04/23 10/13/23 pantoprazole 40 mg tablet,delayed 40 mg PO DAILY@0630 10/04/23 10/13/23 release trazodone 150 mg tablet 150 mg PO BEDTIME 10/04/23 10/13/23 Allergies Allergy/AdvReac Type Severity Reaction Status Date / Time azithromycin [AZITHROMYCIN] Allergy Severe Rash Verified 10/13/23 14:12 Fish Containing Products Allergy Severe Anaphylaxis Verified 10/13/23 14:12 codeine [Codeine] Allergy Intermediate Rash Verified 10/13/23 14:12 Penicillins Allergy Intermediate Rash Verified 10/13/23 14:12 prednisone [Prednisone] Allergy Intermediate Rash Verified 10/13/23 14:12 Sulfa (Sulfonamide Allergy Intermediate Rash Verified 10/13/23 14:12 Antibiotics) [Sulfa (Sulfonamides)] ziprasidone [From Geodon] Allergy Intermediate dysuria, Verified 10/13/23 14:12 rash Review of Systems Review of Systems: Yes all other systems are reviewed and are negative PMFSH Past Medical History Onset Date is defined in the Problem List Problems that require an onset date and time if occurred within 24 hrs of arrival to the ED Aortic Dissection and Rupture; Neurologic impairment; Cardiopulmonary Arrest; Endotracheal Intubation; Insertion or Replacement of Mechanical Circulatory Assist Device Medical History (Updated 10/25/23 @ 00:01 by Richard Perez) Suicidal ideation MDD (major depressive disorder), recurrent episode, severe Chest pain Acute anxiety COVID-19 Full body hives Major depression Dizziness Suicide attempt UTI (urinary tract infection) Acetaminophen overdose COVID History of attempted suicide History of non-suicidal self-harm Hypomagnesemia Suicide attempt Suicide attempt by acetaminophen overdose Acetaminophen overdose Depression Diabetes type 2, controlled Borderline personality disorder PTSD (post-traumatic stress disorder) Overdose GERD (gastroesophageal reflux disease) Mood disorder Hyperlipidemia Bronchitis Social History Social History Household Members: Other Household Members Other:: Half-Way Housing: Other Housing Other:: Half-Way Do you presently have visiting nurse or other home services: Yes Unable to assess alcohol history related to: Unknown Alcohol intake: current Alcohol intake frequency: does not drink Comment: 1:1 sitter Patient Tobacco Use Status: Former Tobacco user Quit Date: NA Tobacco use type: Cigarette Cigarette Packs Per Day: 1 Cigarettes Per Day: 20.0 Years Smoked: 22 Smoked in Last 30 Days: No e-Cigarette/Vaping Use: Currently Using Second Hand Smoke Exposure: No Use of substances other than those prescribed or required for medical reasons: Unknown Substance Use Type: Marijuana Advance Directives: No Advance Directives Information Provided: No Healthcare Proxy: No Guardian: No service: No Current occupational status: unemployed and disabled Sexual orientation: Straight/Heterosexual Physical Exam ED Vital Signs: Vital Signs - 24 hr 10/24/23 18:38 Temperature 97.8 F Pulse Rate 99 Respiratory Rate 18 Blood Pressure 158/103 H Pulse Oximetry 95 Oxygen Delivery Method Room Air BMI result Body Mass Index 37.8 Const Other: The patient is awake and alert. She does not seem in acute distress. She was cooperative. HENMT Other: Mucous membranes are moist. Face is symmetrical. Eyes Other: Pupils are round equal, conjunctivae are clear, extraocular movements intact Neck Other: Moving her neck easily. Resp Effort & Inspection: normal respiratory effort Auscultation: clear to auscultation bilaterally Cardio Rate: regular rate Rhythm: regular rhythm GI Other: Soft and nontender Skin Other: The patient has innumerable superficial wounds to the left arm of a variety of ages. No full-thickness injuries. Neuro Other: The patient is awake and alert. Speech is clear. Gait is normal. Grossly neurologically intact. Extrem Other: Patient has superficial abrasions to the left arm but no full-thickness injuries and no difficulty using her extremities. Psych Other: The patient is common cooperative. Medical Decision Making Medical Decision Making MDM Narrative: Patient is a 47-year-old woman with a history of chronic mental illness and frequent ER visits for her chronic mental illness. She presents with some very superficial scrapes to her left forearm. She seemed medically stable. She was seen by the crisis team and at this point she is bon[place] for safety and seems appropriate for discharge per Lab Data 10/24/23 19:58 10/24/23 19:58 Labs: Lab Results 10/24/23 10/24/23 Range/Units 19:46 19:58 WBC 7.0 (4.8-10.8) X10*3/uL RBC 3.56 L (4.20-5.50) X10*6/uL Hgb 9.7 L (12.0-16.0) g/dl Hct 30.8 L (37.0-47.0) % MCV 86.5 (80.0-98.0) fL MCH 27.2 (27.0-33.0) pg MCHC 31.5 (31.0-35.0) g/dl RDW 14.0 (11.0-16.0) % Plt Count 286 (160-400) X10*3/uL MPV 9.6 (9.4-12.3) fL Immature Gran % (Auto) 0.3 (0.0-0.4) % Neut % (Auto) 60.6 (45-73) % Lymph % (Auto) 24.4 (20-40) % [place] % (Auto) 8.1 (2-11) % Eos % (Auto) 6.0 H (0-4) % Baso % (Auto) 0.6 (0-2) % Lymph # (Auto) 1.7 (1.2-4.9) X10*3/uL [place] # (Auto) 0.6 (0.1-1.2) X10*3/uL Eos # (Auto) 0.4 (0.0-0.4) X10*3/uL Baso # (Auto) 0.0 (0.0-0.2) X10*3/uL Abs Immat Gran (auto) 0.02 (0.00-0.03) X10*3/uL Absolute Neuts (auto) 4.3 (2.0-8.3) x10*3/uL Absolute Nucleated RBC 0.000 (0.0-0.012) X10*3/uL Nucleated RBC % (auto) 0.0 (0.0-0.2) /100WBC Sodium 142 (135-145) mmol/L Potassium 3.8 (3.3-5.1) mmol/L Chloride 107 (96-108) mmol/L Carbon Dioxide 23 (22-29) mmol/L Anion Gap 16 (12-20) BUN 10 (9-16) mg/dL Creatinine 0.76 (0.5-1.4) mg/dL Estim Creat Clear Calc 107.4 Estimated GFR > 60 Random Glucose 119 H (60-115) mg/dL Calcium 9.2 (8.4-10.2) mg/dL Beta HCG, Quant < 2 mIU/mL Urine Color Yellow Urine Appearance Cloudy Urine pH 6.0 (5.0-9.0) Ur Specific [place] <= 1.005 (1.005-1.025) Urine Protein Negative (Neg-Trace) mg/dL Urine Glucose (UA) Negative (Negative) mg/dL Urine Ketones Negative (Negative) mg/dL Urine Blood Negative (Negative) Urine Nitrite Negative (Negative) Ur Leukocyte Esterase Moderate (2+) H (Negative) Urine RBC 0-2 (0-2) /HPF Urine WBC 6-10 (0-5) /HPF Ur Squamous Epith Cells 3-5 (0-2) /HPF Urine Bacteria 4+ (None Seen) Hyaline Casts 0-2 (0-2) /LPF Urine Opiates Screen Not Detected (Not Detect) Urine Fentanyl Screen Not Detected (Not Detect) Ur Barbiturates Screen Not Detected (Not Detect) Ur Phencyclidine Scrn Not Detected (Not Detect) Ur Amphetamines Screen Not Detected (Not Detect) U Benzodiazepines Scrn Not Detected (Not Detect) Urine Cocaine Screen Not Detected (Not Detect) U Marijuana (THC) Screen Not Detected (Not Detect) Ethyl Alcohol < 10 mg/dL Discharge Plan Discharge Clinical Impression: Encounter for behavioral health screening Patient Disposition: Home, Self-Care Additional Instructions: Please continue your regular medications and follow up with your regular providers. Prescriptions: No Action fluoxetine 40 mg capsule 80 mg PO DAILY lorazepam 0.5 mg tablet 0.5 mg PO DAILY PRN (Reason: Anxiety) famotidine 10 mg Tablet 10 mg PO BID@0630,1630 fluphenazine HCl 5 mg tablet 5 mg PO BID albuterol sulfate [Ventolin HFA] 90 mcg/actuation HFA aerosol inhaler 2 inh inhalation Q4H PRN (Reason: Shortness Of Breath Or Wheezing) montelukast 10 mg tablet 10 mg PO BEDTIME metformin 500 mg tablet 500 mg PO BID atorvastatin 10 mg tablet 10 mg PO DAILY lamotrigine 25 mg tablet 25 mg PO DAILY pantoprazole 40 mg tablet,delayed release (DR/EC) 40 mg PO DAILY@0630 trazodone 150 mg tablet 150 mg PO BEDTIME buspirone 10 mg tablet 10 mg PO BID benztropine 1 mg tablet 1 mg PO BID fluticasone propion-salmeterol [Advair Diskus] 100-50 mcg/dose blister with device 1 ea inhalation BID mirtazapine 7.5 mg tablet 7.5 mg PO BEDTIME Interventions: [place]-Suicide Risk Severity Scale Last Done: 10/24/23 18:41 ED Discharge Assessment Last Done: 10/24/23 21:33 Discharge Date/Time: 10/24/23 21:34
[2023-10-24 20:01] LABS: Appearance Urine Cloudy; Color Urine Yellow; Glucose Urine UA Negative (Negative); Leukocyte Esterase Urine Moderate (2+) (Negative); Nitrite Urine Negative (Negative); Specific Gravity - Urine <= 1.005 (1.005-1.025); UMIC TRIGGER UACC YES; Urine Blood Negative (Negative); Urine Ketones Negative (Negative); Urine Protein Negative (Neg-Trace)
[2023-10-24 20:04] LABS: MANUAL DIFF FLAG NO
[2023-10-24 20:05] LABS: Basophils Percent Auto 0.6 % (0-2); Eosinophils Absolute Auto 0.4 X10*3/uL (0.0-0.4); Hematocrit 30.8 % (37.0-47.0); Hemoglobin 9.7 g/dl (12.0-16.0); Imm Gran Abs Auto 0.02 X10*3/uL (0.00-0.03); Imm Gran Pct Auto 0.3 % (0.0-0.4); Lymphocytes Absolute Auto 1.7 X10*3/uL (1.2-4.9); Lymphocytes Percent Auto 24.4 % (20-40); Mean Corpuscular HGB Conc 31.5 g/dl (31.0-35.0); Mean Corpuscular Hemoglobin 27.2 pg (27.0-33.0); Mean Corpuscular Volume 86.5 fL (80.0-98.0); Mean Platelet Volume 9.6 fL (9.4-12.3); Monocytes Absolute Auto 0.6 X10*3/uL (0.1-1.2); Monocytes Percent Auto 8.1 % (2-11); Neutrophils Absolute Auto 4.3 x10*3/uL (2.0-8.3); Neutrophils Percent Auto 60.6 % (45-73); Platelet Count 286 X10*3/uL (160-400); Red Blood Count 3.56 X10*6/uL (4.20-5.50)
[2023-10-24 20:08] LABS: Amphetamine Screen Urine Not Detected (Not Detect); Barbiturates, Urine Not Detected (Not Detect); Benzodiazepines Screen Urine Not Detected (Not Detect); Cannabinoid Screen Urine Not Detected (Not Detect); Cocaine Screen Urine Not Detected (Not Detect); Fentanyl, urine Not Detected (Not Detect); Opiate Screen Urine Not Detected (Not Detect); Phencyclidine Screen Urine Not Detected (Not Detect)
[2023-10-24 20:19] LABS: Anion Gap 16 (12-20); Blood Urea Nitrogen 10 mg/dL (9-16); Calcium 9.2 mg/dL (8.4-10.2); Carbon Dioxide 23 mmol/L (22-29); Chloride 107 mmol/L (96-108); Creatinine Clr Calc Pharmacy 107.4; Estimated Glomerular Filt Rate > 60; Glucose Random 119 mg/dL (60-115); Potassium 3.8 mmol/L (3.3-5.1); Sodium 142 mmol/L (135-145)
[2023-10-24 20:31] LABS: Ethanol < 10 mg/dL; HCG Quantitative < 2 mIU/mL
[2023-10-24 20:35] LABS: Bacteria Urine 4+ (None Seen); Hyaline Casts Urine 0-2 /LPF (0-2); RBC Urine 0-2 /HPF (0-2); UACC Culture Trigger YES
== END 2023-10-24 21:34 | disposition home or self-care (01) ==
PROVIDERS: Emergency Provider Emergency Medicine
DX: F33.2 Major depressive disorder, recurrent severe without psychotic features (principal); R44.0 Auditory hallucinations; R45.851 Suicidal ideations; F41.9 Anxiety disorder, unspecified; F60.3 Borderline personality disorder; F43.12 Post-traumatic stress disorder, chronic; E11.9 Type 2 diabetes mellitus without complications; E78.5 Hyperlipidemia, unspecified; F12.90 Cannabis use, unspecified, uncomplicated; E66.9 Obesity, unspecified; Z68.37 Body mass index [BMI] 37.0-37.9, adult; Z87.891 Personal history of nicotine dependence; Z91.51 Personal history of suicidal behavior; Z91.52 Personal history of nonsuicidal self-harm; Z79.899 Other long term (current) drug therapy
CPT/HCPCS: 36415; 80048; 80307; 81001; 84702; 85025; 87086; 87088; 87186; 99284; S9485

== ENCOUNTER 2023-10-25 18:36 | Emergency (ER) | payer MEDICARE, MEDICAID, SELFPAY ==
[2023-10-25 18:44] VITALS: BP 142/80; PULSE 821; O2SAT 99
[2023-10-25 18:45] VITALS: RESP 18; BMI 43.8
--- NOTE | 2023-10-25 18:45 | ED_ITS ---
HPI - General Adult General Chief complaint: Psychiatric Symptoms Stated complaint: SI with no plan, cooperative at this time Time Seen by Provider: 10/25/23 18:43 Source: patient and EMS Mode of arrival: EMS Limitations: no limitations History of Present Illness HPI narrative: 47-year-old female history of PTSD, Tylenol overdoses, hyperlipidemia, diabetes, depression, borderline personality disorder presents to the emergency department anxiety, depression, auditory hallucinations, intermittent suicidal ideation with plan to overdose on meds, she reports she tried to take extra medications from her senior living however a worker stopped her. She reports she is feeling anxious and has increasing life stressors. Denies any medical complaints at this time. She was brought in by ambulance. Related Data Home Medications Medication Instructions Recorded Confirmed fluoxetine 40 mg capsule 80 mg PO DAILY 08/25/23 10/13/23 lorazepam 0.5 mg tablet 0.5 mg PO DAILY PRN Anxiety 08/31/23 10/13/23 albuterol sulfate 90 mcg/actuation 2 inh inhalation Q4H PRN Shortness 09/17/23 10/25/23 aerosol inhaler (Ventolin HFA) Of Breath Or Wheezing famotidine 10 mg tablet 10 mg PO BID@0630,1630 09/17/23 10/13/23 fluphenazine HCl 5 mg tablet 5 mg PO BID 09/17/23 10/13/23 montelukast 10 mg tablet 10 mg PO BEDTIME 09/17/23 10/13/23 atorvastatin 10 mg tablet 10 mg PO DAILY 10/04/23 10/25/23 benztropine 1 mg tablet 1 mg PO BID 10/04/23 10/25/23 buspirone 10 mg tablet 10 mg PO BID 10/04/23 10/13/23 fluticasone 100 mcg-salmeterol 50 1 ea inhalation BID 10/04/23 10/13/23 mcg/dose blistr powdr for inhalation (Advair Diskus) lamotrigine 25 mg tablet 25 mg PO DAILY 10/04/23 10/13/23 metformin 500 mg tablet 500 mg PO BID 10/04/23 10/13/23 mirtazapine 7.5 mg tablet 7.5 mg PO BEDTIME 10/04/23 10/13/23 pantoprazole 40 mg tablet,delayed 40 mg PO DAILY@0630 10/04/23 10/13/23 release trazodone 150 mg tablet 150 mg PO BEDTIME 10/04/23 10/13/23 Previous Rx's Medication Instructions Recorded nitrofurantoin 100 mg PO BID 5 days #10 caps 10/25/23 monohydrate/macrocrystals 100 mg capsule (Macrobid) Allergies Allergy/AdvReac Type Severity Reaction Status Date / Time azithromycin [AZITHROMYCIN] Allergy Severe Rash Verified 10/13/23 14:12 Fish Containing Products Allergy Severe Anaphylaxis Verified 10/13/23 14:12 codeine [Codeine] Allergy Intermediate Rash Verified 10/13/23 14:12 Penicillins Allergy Intermediate Rash Verified 10/13/23 14:12 prednisone [Prednisone] Allergy Intermediate Rash Verified 10/13/23 14:12 Sulfa (Sulfonamide Allergy Intermediate Rash Verified 10/13/23 14:12 Antibiotics) [Sulfa (Sulfonamides)] ziprasidone [From Geodon] Allergy Intermediate dysuria, Verified 10/13/23 14:12 rash Review of Systems 2 Review of Systems: Constitutional : No Weight loss, No Fever, No Chills, No Fatigue, No Malaise ENT/Mouth : No sore throat, No Rhinorrhea Eyes: No Eye Pain, No Swelling, No Redness Cardiovascular : No Chest Pain, No SOB, No Dyspnea on Exertion, No Orthopnea, No Edema, No Palpitations Respiratory : No Cough, No Sputum, No Wheezing Gastrointestinal : No Nausea, No Vomiting, No Diarrhea, No Constipation, No abdominal Pain, No Hematochezia, No Melena Genitourinary : No Dysuria, No Urinary Frequency, No Hematuria, Musculoskeletal : No joint pain, No Myalgias, No Joint Swelling Skin : No Skin Lesions, No rash Neuro : No Weakness, No Numbness, No Dizziness, No Headache Psych : + Anxiety/Panic, + Depression, No HI/ SI, + hallucinaitons Yes all other systems are reviewed and are negative PMFSH Past Medical History Onset Date is defined in the Problem List Problems that require an onset date and time if occurred within 24 hrs of arrival to the ED Aortic Dissection and Rupture; Neurologic impairment; Cardiopulmonary Arrest; Endotracheal Intubation; Insertion or Replacement of Mechanical Circulatory Assist Device Medical History (Updated 10/25/23 @ 20:00 by TIMI Cruz) Suicidal ideation MDD (major depressive disorder), recurrent episode, severe Chest pain Acute anxiety COVID-19 Full body hives Major depression Dizziness Suicide attempt UTI (urinary tract infection) Acetaminophen overdose COVID History of attempted suicide History of non-suicidal self-harm Hypomagnesemia Suicide attempt Suicide attempt by acetaminophen overdose Acetaminophen overdose Depression Diabetes type 2, controlled Borderline personality disorder PTSD (post-traumatic stress disorder) Overdose GERD (gastroesophageal reflux disease) Mood disorder Hyperlipidemia Bronchitis Social History Social History Household Members: Other Household Members Other:: Nursing Home Housing: Other Housing Other:: Nursing Home Do you presently have visiting nurse or other home services: Yes Unable to assess alcohol history related to: Unknown Alcohol intake: current Alcohol intake frequency: does not drink Comment: 1:1 sitter Patient Tobacco Use Status: Former Tobacco user Quit Date: NA Tobacco use type: Cigarette Cigarette Packs Per Day: 1 Cigarettes Per Day: 20.0 Years Smoked: 22 e-Cigarette/Vaping Use: Currently Using Second Hand Smoke Exposure: No Substance Use Type: Marijuana Advance Directives: No Advance Directives Information Provided: No service: No Current occupational status: unemployed and disabled Sexual orientation: Straight/Heterosexual Physical Exam ED Vital Signs: Vital Signs - 24 hr 10/25/23 18:45 10/25/23 18:58 Temperature 97.9 F Pulse Rate 115 H Respiratory Rate 18 20 Blood Pressure 171/73 H Pulse Oximetry 98 Oxygen Delivery Method Room Air BMI result Body Mass Index 43.8 vss Appearance: Alert.? Oriented X3.? No acute distress.? Head:? Normocephalic, atraumatic, no step-offs or deformities Eyes: Pupils equal, round and reactive to light.? Neck: Normal inspection.? Neck supple.? CVS: Normal heart rate and rhythm.? Pulses normal.? Respiratory: No respiratory distress.? Breath sounds normal.? Abdomen: Soft and nontender.? Skin: Skin warm and dry.? Normal skin color.? Normal skin turgor.?Old self- inflicted superficial wounds to? bilateral forearms, anterior thighs bilaterally, stomach Extremities: No lower extremity edema.? No calf ttp.? 5/5 strength to bilateral upper and lower extremities Neuro: Oriented X 3.? No motor deficit.? No sensory deficit. CN 2-12 intact.? Course Reevaluation(s) Reevaluation #1: CBC appears to be around patient's baseline normocytic anemia. Chemistry unremarkable. UA without infection. Although patient is known to call in eyes patient does have an acute change in her urine she does have positive nitrates will treat with Macrobid. Salicylates, acetaminophen and ethanol negative. Urine toxicology pending. At this time patient to be placed into observation to allow more time to be evaluated by the behavioral health team. At time observation was started patient common cooperative no acute distress will continue to monitor. Time: 19:58 Reevaluation #2: Care team has evaluated the patient at bedside and states that in the evening patient struggles for attention, will follow-up with providers and patient has a day program in the morning. They feel the patient is otherwise safe for discharge. Time: 20:37 Medications Administered Discontinued Medications Generic Name Dose Route Start Last Admin Trade Name Freq PRN Reason Stop Dose Admin Lorazepam 1 mg 10/25/23 19:22 10/25/23 19:27 Lorazepam 1 Mg Tablet PO 10/25/23 19:23 1 mg ONCE ONE Administration Medical Decision Making Medical Decision Making [facility] Narrative: 1847 47 year old female presents w/ hallucinations X1 day PE benign Likely MDD vs borderline personality do vs anxiety vs depression? Unlikely metabolic causes. Will rule out drug use and salicylates, acetaminophen overdose. Plan medical clearance evaluation by behavioral health team Differential Diagnosis Differential Diagnoses: The differential diagnosis associated with the presentation includes Likely MDD vs borderline personality do vs anxiety vs depression? Unlikely metabolic causes. Will rule out drug use and salicylates, acetaminophen overdose. Admission/Observation Consideration of admission/observation: Escalation of care including admission/observation considered possible Lab Data [facility] Lab Attestation statement: I reviewed the patient's lab results. 10/25/23 19:28 10/25/23 19:28 Labs: Lab Results 10/25/23 10/25/23 10/25/23 Range/Units 19:27 19:28 19:44 WBC 6.9 (4.8-10.8) X10*3/uL RBC 3.66 L (4.20-5.50) X10*6/uL Hgb 10.0 L (12.0-16.0) g/dl Hct 31.5 L (37.0-47.0) % MCV 86.1 (80.0-98.0) fL MCH 27.3 (27.0-33.0) pg MCHC 31.7 (31.0-35.0) g/dl RDW 14.1 (11.0-16.0) % Plt Count 298 (160-400) X10*3/uL MPV 9.6 (9.4-12.3) fL Immature Gran % (Auto) 0.3 (0.0-0.4) % Neut % (Auto) 64.6 (45-73) % Lymph % (Auto) 20.6 (20-40) % [place] % (Auto) 8.5 (2-11) % Eos % (Auto) 5.4 H (0-4) % Baso % (Auto) 0.6 (0-2) % Lymph # (Auto) 1.4 (1.2-4.9) X10*3/uL [place] # (Auto) 0.6 (0.1-1.2) X10*3/uL Eos # (Auto) 0.4 (0.0-0.4) X10*3/uL Baso # (Auto) 0.0 (0.0-0.2) X10*3/uL Abs Immat Gran (auto) 0.02 (0.00-0.03) X10*3/uL Absolute Neuts (auto) 4.4 (2.0-8.3) x10*3/uL Absolute Nucleated RBC 0.000 (0.0-0.012) X10*3/uL Nucleated RBC % (auto) 0.0 (0.0-0.2) /100WBC Sodium 140 (135-145) mmol/L Potassium 4.0 (3.3-5.1) mmol/L Chloride 107 (96-108) mmol/L Carbon Dioxide 24 (22-29) mmol/L Anion Gap 13 (12-20) BUN 14 (9-16) mg/dL Creatinine 0.78 (0.5-1.4) mg/dL Estim Creat Clear Calc 113.6 Estimated GFR > 60 Random Glucose 116 H (60-115) mg/dL Calcium 9.5 (8.4-10.2) mg/dL Magnesium 1.6 (1.6-2.6) mg/dL Total Bilirubin 0.2 (0.0-1.0) mg/dL AST 17 (5-31) U/L ALT 15 (0-31) U/L Alkaline Phosphatase 101 (39-117) U/L Total Protein 7.0 (6.5-8.0) g/dL Albumin 4.2 (3.5-5.0) g/dL Urine Color Yellow Urine Appearance Cloudy Urine pH 5.5 (5.0-9.0) Ur Specific [place] 1.015 (1.005-1.025) Urine Protein Negative (Neg-Trace) mg/dL Urine Glucose (UA) Negative (Negative) mg/dL Urine Ketones Negative (Negative) mg/dL Urine Blood Negative (Negative) Urine Nitrite Positive H (Negative) Ur Leukocyte Esterase Large (3+) H (Negative) Urine RBC 0-2 (0-2) /HPF Urine WBC >50 H (0-5) /HPF Ur Squamous Epith Cells 11-20 (0-2) /HPF Urine Bacteria 4+ (None Seen) Hyaline Casts 0-2 (0-2) /LPF Salicylates < 5.0 L (15-30) mg/dL Urine Opiates Screen Not Detected (Not Detect) Urine Fentanyl Screen Not Detected (Not Detect) Acetaminophen < 3 (<30) mcg/mL Ur Barbiturates Screen Not Detected (Not Detect) Ur Phencyclidine Scrn Not Detected (Not Detect) Ur Amphetamines Screen Not Detected (Not Detect) U Benzodiazepines Scrn Not Detected (Not Detect) Urine Cocaine Screen Not Detected (Not Detect) U Marijuana (THC) Screen Not Detected (Not Detect) Ethyl Alcohol < 10 mg/dL COVID-19 (NICK) Negative (Negative) COVID-19 Clin Com See Note External Record Review External record reviewed: Inpatient record, Office record, Outpatient record, Prior outpatient labs, Prior outpatient radiology and Primary care record Prescription Management I considered prescription management with: Antibiotic Chronic Conditions Patient?s care impacted by: Other (mental health d/o) Critical Care Time Critical Care Time Critical Care Time: No Discharge Plan Discharge Clinical Impression: Depression, Acute anxiety, UTI (urinary tract infection) Patient Disposition: Xfer Other Instructions: Anxiety (ED), Depression (ED), Urinary Tract Infection in Women (ED) Additional Instructions: 1. Resume all home medications as prescribed. 2. Please follow-up with your providers in the morning. Prescriptions: New nitrofurantoin monohyd/m-cryst [Macrobid] 100 mg capsule 100 mg PO BID 5 Days Qty: 10 0RF Rx Instructions: must administer with a meal/food No Action fluoxetine 40 mg capsule 80 mg PO DAILY lorazepam 0.5 mg tablet 0.5 mg PO DAILY PRN (Reason: Anxiety) famotidine 10 mg Tablet 10 mg PO BID@0630,1630 fluphenazine HCl 5 mg tablet 5 mg PO BID albuterol sulfate [Ventolin HFA] 90 mcg/actuation HFA aerosol inhaler 2 inh inhalation Q4H PRN (Reason: Shortness Of Breath Or Wheezing) montelukast 10 mg tablet 10 mg PO BEDTIME metformin 500 mg tablet 500 mg PO BID atorvastatin 10 mg tablet 10 mg PO DAILY lamotrigine 25 mg tablet 25 mg PO DAILY pantoprazole 40 mg tablet,delayed release (DR/EC) 40 mg PO DAILY@0630 trazodone 150 mg tablet 150 mg PO BEDTIME buspirone 10 mg tablet 10 mg PO BID benztropine 1 mg tablet 1 mg PO BID fluticasone propion-salmeterol [Advair Diskus] 100-50 mcg/dose blister with device 1 ea inhalation BID mirtazapine 7.5 mg tablet 7.5 mg PO BEDTIME Interventions: [place]-Suicide Risk Severity Scale Last Done: 10/25/23 19:02
--- NOTE | 2023-10-25 18:46 | PC.NURSE ---
Pt reports being SI with plan to overdose on pills. Pt anxious denies taking substances before arrival. Report given to New RN.
[2023-10-25 18:58] VITALS: BP 171/73; PULSE 115; RESP 20; TEMP 36.6; O2SAT 98
--- NOTE | 2023-10-25 19:07 | MHC.EDTECH ---
THIS TECH ASK LEAD TECH IF HE CAN HELP WITH BLOODWORK ON PT PLAN OF CARE IS ONGOING
[2023-10-25] MEDS: LORazepam 1 MG TABLET PO (19:27)
[2023-10-25 19:33] LABS: MANUAL DIFF FLAG NO
[2023-10-25 19:34] LABS: Basophils Percent Auto 0.6 % (0-2); Eosinophils Absolute Auto 0.4 X10*3/uL (0.0-0.4); Eosinophils Percent Auto 5.4 % (0-4); Hematocrit 31.5 % (37.0-47.0); Imm Gran Abs Auto 0.02 X10*3/uL (0.00-0.03); Imm Gran Pct Auto 0.3 % (0.0-0.4); Lymphocytes Absolute Auto 1.4 X10*3/uL (1.2-4.9); Lymphocytes Percent Auto 20.6 % (20-40); Mean Corpuscular HGB Conc 31.7 g/dl (31.0-35.0); Mean Corpuscular Hemoglobin 27.3 pg (27.0-33.0); Mean Corpuscular Volume 86.1 fL (80.0-98.0); Mean Platelet Volume 9.6 fL (9.4-12.3); Monocytes Absolute Auto 0.6 X10*3/uL (0.1-1.2); Monocytes Percent Auto 8.5 % (2-11); Neutrophils Absolute Auto 4.4 x10*3/uL (2.0-8.3); Neutrophils Percent Auto 64.6 % (45-73); Platelet Count 298 X10*3/uL (160-400); Red Blood Count 3.66 X10*6/uL (4.20-5.50); Red Cell Distribution Width 14.1 % (11.0-16.0); White Blood Count 6.9 X10*3/uL (4.8-10.8)
[2023-10-25 19:49] LABS: Acetaminophen LAB < 3 mcg/mL (<30); COVID-19 Test Negative (Negative); IDNOW Serial# 152EDE1D; Salicylate < 5.0 mg/dL (15-30)
[2023-10-25 19:52] LABS: Appearance Urine Cloudy; Color Urine Yellow; Glucose Urine UA Negative (Negative); Leukocyte Esterase Urine Large (3+) (Negative); Nitrite Urine Positive (Negative); PH 5.5 (5.0-9.0); Specific Gravity - Urine 1.015 (1.005-1.025); UMIC TRIGGER UACC YES; Urine Blood Negative (Negative); Urine Ketones Negative (Negative); Urine Protein Negative (Neg-Trace)
[2023-10-25 19:52] LABS: Alanine Aminotransferase 15 U/L (0-31); Albumin Level 4.2 g/dL (3.5-5.0); Alkaline Phosphatase 101 U/L (39-117); Anion Gap 13 (12-20); Aspartate Amino Transferase 17 U/L (5-31); Bilirubin Total 0.2 mg/dL (0.0-1.0); Blood Urea Nitrogen 14 mg/dL (9-16); Calcium 9.5 mg/dL (8.4-10.2); Carbon Dioxide 24 mmol/L (22-29); Chloride 107 mmol/L (96-108); Creatinine Clr Calc Pharmacy 113.6; Estimated Glomerular Filt Rate > 60; Ethanol < 10 mg/dL; Glucose Random 116 mg/dL (60-115); Magnesium 1.6 mg/dL (1.6-2.6); Sodium 140 mmol/L (135-145)
[2023-10-25 19:55] LABS: Bacteria Urine 4+ (None Seen); Hyaline Casts Urine 0-2 /LPF (0-2); RBC Urine 0-2 /HPF (0-2); UACC Culture Trigger YES; WBC Urine >50 /HPF (0-5)
[2023-10-25 19:58] LABS: Amphetamine Screen Urine Not Detected (Not Detect); Barbiturates, Urine Not Detected (Not Detect); Benzodiazepines Screen Urine Not Detected (Not Detect); Cannabinoid Screen Urine Not Detected (Not Detect); Cocaine Screen Urine Not Detected (Not Detect); Fentanyl, urine Not Detected (Not Detect); Opiate Screen Urine Not Detected (Not Detect); Phencyclidine Screen Urine Not Detected (Not Detect)
[2023-10-25] MEDS: Nitrofurantoin Monohyd/M-Cryst 100 MG CAPSULE PO (20:47)
== END 2023-10-25 21:04 | disposition home or self-care (01) ==
PROVIDERS: Physician Assistant; Emergency Provider Student in an Organized Health Care Education/Training Program
DX: R45.851 Suicidal ideations (principal); F32.A Depression, unspecified; F41.9 Anxiety disorder, unspecified; N39.0 Urinary tract infection, site not specified; Z11.52 Encounter for screening for COVID-19; R44.0 Auditory hallucinations; F60.3 Borderline personality disorder; F31.9 Bipolar disorder, unspecified; Z91.51 Personal history of suicidal behavior; Z91.52 Personal history of nonsuicidal self-harm; E11.9 Type 2 diabetes mellitus without complications; E78.5 Hyperlipidemia, unspecified; D64.9 Anemia, unspecified; F17.210 Nicotine dependence, cigarettes, uncomplicated; F12.90 Cannabis use, unspecified, uncomplicated; E66.9 Obesity, unspecified; Z68.41 Body mass index [BMI] 40.0-44.9, adult; Z79.84 Long term (current) use of oral hypoglycemic drugs; Z79.899 Other long term (current) drug therapy; Z79.02 Long term (current) use of antithrombotics/antiplatelets
CPT/HCPCS: 80053; 80143; 80179; 80307; 81001; 83735; 85025; 87635; 99284

== ENCOUNTER 2023-10-28 12:30 | Emergency (ER) | payer MEDICARE, MEDICAID, SELFPAY ==
--- NOTE | 2023-10-28 12:41 | ED.GENADULT ---
HPI - General Adult General Chief complaint: Psychiatric Symptoms Stated complaint: CRISIS Time Seen by Provider: 10/28/23 12:33 Source: patient Mode of arrival: EMS Limitations: altered mental status History of Present Illness HPI narrative: 47-year-old female history of PTSD, Tylenol overdoses, hyperlipidemia, diabetes, depression, borderline personality disorder presents to the emergency department anxiety, depression, auditory hallucinations, intermittent suicidal ideation with plan to overdose on meds ( has not taken extra meds) She reports she is feeling anxious and has increasing life stressors and intermittently is seeing her father. Denies any medical complaints at this time. She was brought in by ambulance. Related Data Home Medications Medication Instructions Recorded Confirmed fluoxetine 40 mg capsule 80 mg PO DAILY 08/25/23 10/13/23 lorazepam 0.5 mg tablet 0.5 mg PO DAILY PRN Anxiety 08/31/23 10/28/23 albuterol sulfate 90 mcg/actuation 2 inh inhalation Q4H PRN Shortness 09/17/23 10/28/23 aerosol inhaler (Ventolin HFA) Of Breath Or Wheezing famotidine 10 mg tablet 10 mg PO BID@0630,1630 09/17/23 10/13/23 fluphenazine HCl 5 mg tablet 5 mg PO BID 09/17/23 10/13/23 montelukast 10 mg tablet 10 mg PO BEDTIME 09/17/23 10/28/23 atorvastatin 10 mg tablet 10 mg PO DAILY 10/04/23 10/28/23 benztropine 1 mg tablet 1 mg PO BID 10/04/23 10/28/23 buspirone 10 mg tablet 10 mg PO BID 10/04/23 10/13/23 fluticasone 100 mcg-salmeterol 50 1 ea inhalation BID 10/04/23 10/13/23 mcg/dose blistr powdr for inhalation (Advair Diskus) lamotrigine 25 mg tablet 25 mg PO DAILY 10/04/23 10/13/23 metformin 500 mg tablet 500 mg PO BID 10/04/23 10/13/23 mirtazapine 7.5 mg tablet 7.5 mg PO BEDTIME 10/04/23 10/13/23 pantoprazole 40 mg tablet,delayed 40 mg PO DAILY@0630 10/04/23 10/13/23 release trazodone 150 mg tablet 150 mg PO BEDTIME 10/04/23 10/28/23 Previous Rx's Medication Instructions Recorded nitrofurantoin 100 mg PO BID 5 days #10 caps 10/25/23 monohydrate/macrocrystals 100 mg capsule (Macrobid) Allergies Allergy/AdvReac Type Severity Reaction Status Date / Time azithromycin [AZITHROMYCIN] Allergy Severe Rash Verified 10/28/23 12:50 Fish Containing Products Allergy Severe Anaphylaxis Verified 10/28/23 12:50 codeine [Codeine] Allergy Intermediate Rash Verified 10/28/23 12:50 Penicillins Allergy Intermediate Rash Verified 10/28/23 12:50 prednisone [Prednisone] Allergy Intermediate Rash Verified 10/28/23 12:50 Sulfa (Sulfonamide Allergy Intermediate Rash Verified 10/28/23 12:50 Antibiotics) [Sulfa (Sulfonamides)] ziprasidone [From Geodon] Allergy Intermediate dysuria, Verified 10/28/23 12:50 rash Review of Systems Review of Systems: Constitutional : No Weight loss, No Fever, No Chills, No Fatigue, No Malaise ENT/Mouth : No sore throat, No Rhinorrhea Eyes: No Eye Pain, No Swelling, No Redness Cardiovascular : No Chest Pain, No SOB, No Dyspnea on Exertion, No Orthopnea, No Edema, No Palpitations Respiratory : No Cough, No Sputum, No Wheezing Gastrointestinal : No Nausea, No Vomiting, No Diarrhea, No Constipation, No abdominal Pain, No Hematochezia, No Melena Genitourinary : No Dysuria, No Urinary Frequency, No Hematuria, Musculoskeletal : No joint pain, No Myalgias, No Joint Swelling Skin : No Skin Lesions, No rash Neuro : No Weakness, No Numbness, No Dizziness, No Headache Psych : + Anxiety/Panic, + Depression, + halllucination. No HI/SI Heme/Lymph: No Bruising, No Bleeding,No Lymphadenopathy Endocrine : No Polyuria, No Polydipsia All other systems reviewed and are negative Yes all other systems are reviewed and are negative PMFSH Past Medical History Attestation statement: The following information was validated with the patient. Source: old records reviewed and nursing notes reviewed Onset Date is defined in the Problem List Problems that require an onset date and time if occurred within 24 hrs of arrival to the ED Aortic Dissection and Rupture; Neurologic impairment; Cardiopulmonary Arrest; Endotracheal Intubation; Insertion or Replacement of Mechanical Circulatory Assist Device Medical History Suicidal ideation MDD (major depressive disorder), recurrent episode, severe Chest pain Acute anxiety COVID-19 Full body hives Major depression Dizziness Suicide attempt UTI (urinary tract infection) Acetaminophen overdose COVID History of attempted suicide History of non-suicidal self-harm Hypomagnesemia Suicide attempt Suicide attempt by acetaminophen overdose Acetaminophen overdose Depression Diabetes type 2, controlled Borderline personality disorder PTSD (post-traumatic stress disorder) Overdose GERD (gastroesophageal reflux disease) Mood disorder Hyperlipidemia Bronchitis Social History Social History Household Members: Other Household Members Other:: [facility] Housing: Other Housing Other:: [facility]iary Do you presently have visiting nurse or other home services: Yes Unable to assess alcohol history related to: Unknown Alcohol intake: current Alcohol intake frequency: does not drink Comment: 1:1 sitter Patient Tobacco Use Status: Former Tobacco user Quit Date: NA Tobacco use type: Cigarette Cigarette Packs Per Day: 1 Cigarettes Per Day: 20.0 Years Smoked: 22 Smoked in Last 30 Days: Yes e-Cigarette/Vaping Use: Currently Using Second Hand Smoke Exposure: No Use of substances other than those prescribed or required for medical reasons: No Substance Use Type: Marijuana Advance Directives: No Advance Directives Information Provided: No Patient : No service: No Current occupational status: unemployed and disabled Sexual orientation: Straight/Heterosexual Physical Exam ED Vital Signs: Vital Signs - 24 hr 10/28/23 12:42 10/28/23 12:53 10/28/23 14:08 Temperature 97.6 F Pulse Rate 96 Respiratory Rate 14 14 14 Blood Pressure 151/95 H Pulse Oximetry 96 Oxygen Delivery Method Room Air BMI result Body Mass Index 37.8 vss Appearance: Alert.? Oriented X3.? No acute distress.? Head: Normocephalic, atraumatic, no step-offs or deformities Eyes: Pupils equal, round and reactive to light.? ENT: Pharynx normal.??External ears normal, TMs normal bilaterally and EAC's normal. No pain with manipulation of external ears bilaterally. No mastoid tenderness. Neck: Normal inspection.? Neck supple.? CVS: Normal heart rate and rhythm.? Pulses normal.? Respiratory: No respiratory distress.? Breath sounds normal.? Abdomen: Soft and nontender.? Skin: Skin warm and dry.? Normal skin color.? Normal skin turgor.? Extremities: No lower extremity edema.? No calf ttp. 5/5 strength to bilateral upper and lower extremities Back: No midline tenderness, no C-spine tenderness, full range of motion, no CVA tenderness bilaterally Neuro: Oriented X 3.? No motor deficit.? No sensory deficit. CN 2-12 intact Course Reevaluation(s) Reevaluation #1: CBC with a baseline normocytic anemia. Chemistry pending. Salicylates acetaminophen pending. UA with positive bacteria being treated for UTI. No urinary symptoms. Plan is for patient to be placed into observation to allow more time to be evaluated by behavioral health team. At time observation started [facility] no acute distress Time: 14:40 Reevaluation #2: Chemistry no acute findings requiring intervention. Salicylates acetaminophen ethanol negative. Urine toxicology negative. At this time patient to be placed in observation to allow more time to be evaluated by behavioral health team. At time observation was started [facility] no acute distress Time: 15:14 Medical Decision Making Medical Decision Making [facility] Narrative: 47 year old female presents w/ hallucinations and si X1 day PE benign Likely MDD vs borderline personality do vs anxiety vs depression? Unlikely metabolic causes. Will rule out drug use and salicylates, acetaminophen overdose. Plan medical clearance evaluation by behavioral health team Differential Diagnosis Differential Diagnoses: The differential diagnosis associated with the presentation includes ikely MDD vs borderline personality do vs anxiety vs depression? Unlikely metabolic causes. Will rule out drug use and salicylates, acetaminophen overdose. Admission/Observation Consideration of admission/observation: Escalation of care including admission/observation considered Consult Healthcare Provider Management of the patient was discussed with: Behavioral Health Provider Lab Data [facility] Lab Attestation statement: I reviewed the patient's lab results. 10/28/23 14:29 10/28/23 14:29 Labs: Lab Results 10/28/23 10/28/23 Range/Units 13:20 14:29 WBC 6.2 (4.8-10.8) X10*3/uL RBC 3.68 L (4.20-5.50) X10*6/uL Hgb 9.9 L (12.0-16.0) g/dl Hct 31.3 L (37.0-47.0) % MCV 85.1 (80.0-98.0) fL MCH 26.9 L (27.0-33.0) pg MCHC 31.6 (31.0-35.0) g/dl RDW 13.8 (11.0-16.0) % Plt Count 290 (160-400) X10*3/uL MPV 9.3 L (9.4-12.3) fL Immature Gran % (Auto) 0.5 H (0.0-0.4) % Neut % (Auto) 65.5 (45-73) % Lymph % (Auto) 19.4 L (20-40) % [place] % (Auto) 9.1 (2-11) % Eos % (Auto) 4.9 H (0-4) % Baso % (Auto) 0.6 (0-2) % Lymph # (Auto) 1.2 (1.2-4.9) X10*3/uL [place] # (Auto) 0.6 (0.1-1.2) X10*3/uL Eos # (Auto) 0.3 (0.0-0.4) X10*3/uL Baso # (Auto) 0.0 (0.0-0.2) X10*3/uL Abs Immat Gran (auto) 0.03 (0.00-0.03) X10*3/uL Absolute Neuts (auto) 4.0 (2.0-8.3) x10*3/uL Absolute Nucleated RBC 0.000 (0.0-0.012) X10*3/uL Nucleated RBC % (auto) 0.0 (0.0-0.2) /100WBC Sodium 137 (135-145) mmol/L Potassium 3.6 (3.3-5.1) mmol/L Chloride 104 (96-108) mmol/L Carbon Dioxide 23 (22-29) mmol/L Anion Gap 14 (12-20) BUN 11 (9-16) mg/dL Creatinine 0.86 (0.5-1.4) mg/dL Estim Creat Clear Calc 94.8 Estimated GFR > 60 Random Glucose 124 H (60-115) mg/dL Calcium 9.2 (8.4-10.2) mg/dL Urine Color Yellow Urine Appearance Cloudy Urine pH 7.5 (5.0-9.0) Ur Specific [place] 1.010 (1.005-1.025) Urine Protein Negative (Neg-Trace) mg/dL Urine Glucose (UA) Negative (Negative) mg/dL Urine Ketones Negative (Negative) mg/dL Urine Blood Negative (Negative) Urine Nitrite Negative (Negative) Ur Leukocyte Esterase Moderate (2+) H (Negative) Urine RBC 0-2 (0-2) /HPF Urine WBC 11-20 H (0-5) /HPF Ur Squamous Epith Cells 11-20 (0-2) /HPF Urine Bacteria 2+ (None Seen) Hyaline Casts 0-2 (0-2) /LPF Urine Test NEGATIVE (NEGATIVE) Salicylates < 5.0 L (15-30) mg/dL Urine Opiates Screen Not Detected (Not Detect) Urine Fentanyl Screen Not Detected (Not Detect) Acetaminophen < 3 (<30) mcg/mL Ur Barbiturates Screen Not Detected (Not Detect) Ur Phencyclidine Scrn Not Detected (Not Detect) Ur Amphetamines Screen Not Detected (Not Detect) U Benzodiazepines Scrn Not Detected (Not Detect) Urine Cocaine Screen Not Detected (Not Detect) U Marijuana (THC) Screen Not Detected (Not Detect) Ethyl Alcohol < 10 mg/dL COVID-19 (NICK) Negative (Negative) COVID-19 Clin Com See Note External Record Review External record reviewed: Inpatient record, Office record, Outpatient record, Prior outpatient labs, Prior outpatient radiology, Primary care record and Outside ED record Chronic Conditions Patient?s care impacted by: Other (multiple mental health disorders ) Critical Care Time Critical Care Time Critical Care Time: No Discharge Plan Discharge Clinical Impression: Borderline personality disorder, Acute anxiety Patient Disposition: Still a Patient Prescriptions: No Action fluoxetine 40 mg capsule 80 mg PO DAILY lorazepam 0.5 mg tablet 0.5 mg PO DAILY PRN (Reason: Anxiety) nitrofurantoin monohyd/m-cryst [Macrobid] 100 mg capsule 100 mg PO BID 5 Days Qty: 10 0RF Rx Instructions: must administer with a meal/food famotidine 10 mg Tablet 10 mg PO BID@0630,1630 fluphenazine HCl 5 mg tablet 5 mg PO BID albuterol sulfate [Ventolin HFA] 90 mcg/actuation HFA aerosol inhaler 2 inh inhalation Q4H PRN (Reason: Shortness Of Breath Or Wheezing) montelukast 10 mg tablet 10 mg PO BEDTIME metformin 500 mg tablet 500 mg PO BID atorvastatin 10 mg tablet 10 mg PO DAILY lamotrigine 25 mg tablet 25 mg PO DAILY pantoprazole 40 mg tablet,delayed release (DR/EC) 40 mg PO DAILY@0630 trazodone 150 mg tablet 150 mg PO BEDTIME buspirone 10 mg tablet 10 mg PO BID benztropine 1 mg tablet 1 mg PO BID fluticasone propion-salmeterol [Advair Diskus] 100-50 mcg/dose blister with device 1 ea inhalation BID mirtazapine 7.5 mg tablet 7.5 mg PO BEDTIME Interventions: [place]-Suicide Risk Severity Scale Last Done: 10/28/23 12:44
[2023-10-28 12:42] VITALS: BP 150/98; BP 151/95; PULSE 106; PULSE 96; RESP 14; TEMP 36.4; O2SAT 96; O2SAT 98; BMI 37.8
[2023-10-28 12:53] VITALS: RESP 14
[2023-10-28 13:29] LABS: Appearance Urine Cloudy; Color Urine Yellow; Glucose Urine UA Negative (Negative); Leukocyte Esterase Urine Moderate (2+) (Negative); Nitrite Urine Negative (Negative); PH 7.5 (5.0-9.0); UMIC TRIGGER UACC YES; Urine Blood Negative (Negative); Urine Ketones Negative (Negative); Urine Protein Negative (Neg-Trace)
[2023-10-28 13:32] LABS: UPreg QC Valid YES; Urine Pregnancy NEGATIVE (NEGATIVE)
[2023-10-28 13:35] LABS: Amphetamine Screen Urine Not Detected (Not Detect); Barbiturates, Urine Not Detected (Not Detect); Benzodiazepines Screen Urine Not Detected (Not Detect); Cannabinoid Screen Urine Not Detected (Not Detect); Cocaine Screen Urine Not Detected (Not Detect); Fentanyl, urine Not Detected (Not Detect); Opiate Screen Urine Not Detected (Not Detect); Phencyclidine Screen Urine Not Detected (Not Detect)
[2023-10-28 13:41] LABS: Bacteria Urine 2+ (None Seen); Hyaline Casts Urine 0-2 /LPF (0-2); RBC Urine 0-2 /HPF (0-2); UACC Culture Trigger YES
[2023-10-28 13:43] LABS: COVID-19 Test Negative (Negative); IDNOW Serial# 9DB6401D
[2023-10-28 14:08] VITALS: RESP 14
[2023-10-28 14:33] LABS: MANUAL DIFF FLAG NO
[2023-10-28 14:34] LABS: Basophils Percent Auto 0.6 % (0-2); Eosinophils Absolute Auto 0.3 X10*3/uL (0.0-0.4); Eosinophils Percent Auto 4.9 % (0-4); Hematocrit 31.3 % (37.0-47.0); Hemoglobin 9.9 g/dl (12.0-16.0); Imm Gran Abs Auto 0.03 X10*3/uL (0.00-0.03); Imm Gran Pct Auto 0.5 % (0.0-0.4); Lymphocytes Absolute Auto 1.2 X10*3/uL (1.2-4.9); Lymphocytes Percent Auto 19.4 % (20-40); Mean Corpuscular HGB Conc 31.6 g/dl (31.0-35.0); Mean Corpuscular Hemoglobin 26.9 pg (27.0-33.0); Mean Corpuscular Volume 85.1 fL (80.0-98.0); Mean Platelet Volume 9.3 fL (9.4-12.3); Monocytes Absolute Auto 0.6 X10*3/uL (0.1-1.2); Monocytes Percent Auto 9.1 % (2-11); Neutrophils Percent Auto 65.5 % (45-73); Platelet Count 290 X10*3/uL (160-400); Red Blood Count 3.68 X10*6/uL (4.20-5.50); Red Cell Distribution Width 13.8 % (11.0-16.0); White Blood Count 6.2 X10*3/uL (4.8-10.8)
[2023-10-28 14:59] LABS: Acetaminophen LAB < 3 mcg/mL (<30); Anion Gap 14 (12-20); Blood Urea Nitrogen 11 mg/dL (9-16); Calcium 9.2 mg/dL (8.4-10.2); Carbon Dioxide 23 mmol/L (22-29); Chloride 104 mmol/L (96-108); Creatinine Clr Calc Pharmacy 94.8; Estimated Glomerular Filt Rate > 60; Ethanol < 10 mg/dL; Glucose Random 124 mg/dL (60-115); Potassium 3.6 mmol/L (3.3-5.1); Salicylate < 5.0 mg/dL (15-30); Sodium 137 mmol/L (135-145)
--- NOTE | 2023-10-28 16:07 | PC.NURSE ---
Pt reports that she would like to go home at this time, TIMI Bentley aware. offers no complaints otherwise
--- NOTE | 2023-10-28 19:33 | PC.NURSE ---
patient appears to remain at rest at present in rear area of behavior pod, awaits care team assessment patient appears in no distress.
[2023-10-28 20:45] VITALS: BP 146/90; PULSE 87; RESP 20; TEMP 36.1; O2SAT 98
== END 2023-10-29 00:01 | disposition home or self-care (01) ==
PROVIDERS: Emergency Medicine; Physician Assistant; Emergency Provider Emergency Medicine Emergency Medical Services; PCP Nurse Practitioner Family
DX: F33.1 Major depressive disorder, recurrent, moderate (principal); F60.3 Borderline personality disorder; R45.851 Suicidal ideations; F41.1 Generalized anxiety disorder; F43.0 Acute stress reaction; Z79.899 Other long term (current) drug therapy; Z63.4 Disappearance and death of family member; Z11.52 Encounter for screening for COVID-19
CPT/HCPCS: 80048; 80143; 80179; 80307; 81001; 81025; 85025; 87086; 87635; 99285; S9485

== ENCOUNTER 2023-10-31 19:12 | Emergency (ER) | payer MEDICARE, MEDICAID, SELFPAY ==
[2023-10-31 19:16] VITALS: BP 157/103; PULSE 111; RESP 14; TEMP 36.3; O2SAT 95; BMI 37.8
--- NOTE | 2023-10-31 19:24 | PC.NURSE ---
pt comes in from detention, reports that she is having auditory hallucinations telling her to overdose, not clear on what (pt does have hx of tylenol ODs). Pt reports SI with plan to OD and cut self. Pt is ambulating around BH pod with steady gait, RR even and unlabored, no apparent distress
--- NOTE | 2023-10-31 20:24 | PC.NURSE ---
pt verbalizes feeling safe, denies SI. reports wanting to go home. MD at bedside
--- NOTE | 2023-10-31 20:42 | ED_ITS ---
HPI - Psych General Chief Complaint: Psychiatric Symptoms Stated Complaint: SI and hearing voices, coming from Time Seen by Provider: 10/31/23 20:10 Source: patient Mode of arrival: EMS Limitations: no limitations History of Present Illness HPI Narrative: Patient has frequent ED visits for panic attack depression PTSD was in jail earlier reported auditory hallucination telling her to overdose on harm her self got panicked patient has been here with similar complaints in the past after arrival patient feels fine does have a care team plan and lives in jail after arrival patient feels much better does not want to stay would like to go back to her jail Related Data Home Medications Medication Instructions Recorded Confirmed fluoxetine 40 mg capsule 80 mg PO DAILY 08/25/23 10/13/23 lorazepam 0.5 mg tablet 0.5 mg PO DAILY PRN Anxiety 08/31/23 10/28/23 albuterol sulfate 90 mcg/actuation 2 inh inhalation Q4H PRN Shortness 09/17/23 10/28/23 aerosol inhaler (Ventolin HFA) Of Breath Or Wheezing famotidine 10 mg tablet 10 mg PO BID@0630,1630 09/17/23 10/13/23 fluphenazine HCl 5 mg tablet 5 mg PO BID 09/17/23 10/13/23 montelukast 10 mg tablet 10 mg PO BEDTIME 09/17/23 10/28/23 atorvastatin 10 mg tablet 10 mg PO DAILY 10/04/23 10/28/23 benztropine 1 mg tablet 1 mg PO BID 10/04/23 10/28/23 buspirone 10 mg tablet 10 mg PO BID 10/04/23 10/13/23 fluticasone 100 mcg-salmeterol 50 1 ea inhalation BID 10/04/23 10/13/23 mcg/dose blistr powdr for inhalation (Advair Diskus) lamotrigine 25 mg tablet 25 mg PO DAILY 10/04/23 10/13/23 metformin 500 mg tablet 500 mg PO BID 10/04/23 10/13/23 mirtazapine 7.5 mg tablet 7.5 mg PO BEDTIME 10/04/23 10/13/23 pantoprazole 40 mg tablet,delayed 40 mg PO DAILY@0630 10/04/23 10/13/23 release trazodone 150 mg tablet 150 mg PO BEDTIME 10/04/23 10/28/23 Previous Rx's Medication Instructions Recorded nitrofurantoin 100 mg PO BID 5 days #10 caps 10/25/23 monohydrate/macrocrystals 100 mg capsule (Macrobid) Allergies Allergy/AdvReac Type Severity Reaction Status Date / Time azithromycin [AZITHROMYCIN] Allergy Severe Rash Verified 10/28/23 12:50 Fish Containing Products Allergy Severe Anaphylaxis Verified 10/28/23 12:50 codeine [Codeine] Allergy Intermediate Rash Verified 10/28/23 12:50 Penicillins Allergy Intermediate Rash Verified 10/28/23 12:50 prednisone [Prednisone] Allergy Intermediate Rash Verified 10/28/23 12:50 Sulfa (Sulfonamide Allergy Intermediate Rash Verified 10/28/23 12:50 Antibiotics) [Sulfa (Sulfonamides)] ziprasidone [From Geodon] Allergy Intermediate dysuria, Verified 10/28/23 12:50 rash Review of Systems Review of Systems: Yes all other systems are reviewed and are negative PMFSH Past Medical History Onset Date is defined in the Problem List Problems that require an onset date and time if occurred within 24 hrs of arrival to the ED Aortic Dissection and Rupture; Neurologic impairment; Cardiopulmonary Arrest; Endotracheal Intubation; Insertion or Replacement of Mechanical Circulatory Assist Device Medical History Suicidal ideation MDD (major depressive disorder), recurrent episode, severe Chest pain Acute anxiety COVID-19 Full body hives Major depression Dizziness Suicide attempt UTI (urinary tract infection) Acetaminophen overdose COVID History of attempted suicide History of non-suicidal self-harm Hypomagnesemia Suicide attempt Suicide attempt by acetaminophen overdose Acetaminophen overdose Depression Diabetes type 2, controlled Borderline personality disorder PTSD (post-traumatic stress disorder) Overdose GERD (gastroesophageal reflux disease) Mood disorder Hyperlipidemia Bronchitis Social History Social History Household Members: Other Household Members Other:: [facility] Housing: Other Housing Other:: [facility] Do you presently have visiting nurse or other home services: Yes Unable to assess alcohol history related to: Unknown Alcohol intake: current Alcohol intake frequency: does not drink Comment: 1:1 sitter Patient Tobacco Use Status: Former Tobacco user Quit Date: NA Tobacco use type: Cigarette Cigarette Packs Per Day: 1 Cigarettes Per Day: 20.0 Years Smoked: 22 Smoked in Last 30 Days: Yes e-Cigarette/Vaping Use: Currently Using Second Hand Smoke Exposure: No Use of substances other than those prescribed or required for medical reasons: No Substance Use Type: Marijuana Advance Directives: No Advance Directives Information Provided: No Patient : No service: No Current occupational status: unemployed and disabled Sexual orientation: Straight/Heterosexual Physical Exam Vital Signs: Vital Signs: Last Vital Signs Temp 97.4 F 10/31/23 19:16 Pulse 111 H 10/31/23 19:16 Resp 14 10/31/23 19:16 BP 157/103 H 10/31/23 19:16 Pulse Ox 95 10/31/23 19:16 O2 Del Method Room Air 10/31/23 19:16 BMI result Body Mass Index 37.8 Appearance: Alert. Oriented X3. No acute distress. Eyes: PERRLA, No Nystagmus ENT: Pharynx normal. Oral Mucosa moist Neck: Normal inspection. Neck supple. CVS: Normal heart rate and rhythm. Pulses normal. Respiratory: No respiratory distress. Equal air entry bilateral, Abdomen: Soft and nontender. Bowel sounds are present, Skin: Skin warm and dry. Normal skin color. Normal skin turgor. Extremities: No lower extremity edema. No calf tenderness psych: Stable mood now denies any anxiety no hallucinations denies any SI Neuro: Oriented X 3. No motor deficit. No sensory deficit.No cerebellar signs , cranial nerves II-XII intact Medical Decision Making Medical Decision Making MDM Narrative: Patient with care plan for her anxiety panic attacks comes here frequently for depression/anxiety/panic attack/suicidal feeling after arrival patient been feeling much better will follow-up with care team as outpatient patient was seen by care team 3 days ago will discharge patient back jail Discharge Plan Discharge Clinical Impression: Panic attack Patient Disposition: Home, Self-Care Instructions: Panic Attack (ED) Additional Instructions: Continue take medications and follow up with therapist Prescriptions: No Action fluoxetine 40 mg capsule 80 mg PO DAILY lorazepam 0.5 mg tablet 0.5 mg PO DAILY PRN (Reason: Anxiety) nitrofurantoin monohyd/m-cryst [Macrobid] 100 mg capsule 100 mg PO BID 5 Days Qty: 10 0RF Rx Instructions: must administer with a meal/food famotidine 10 mg Tablet 10 mg PO BID@0630,1630 fluphenazine HCl 5 mg tablet 5 mg PO BID albuterol sulfate [Ventolin HFA] 90 mcg/actuation HFA aerosol inhaler 2 inh inhalation Q4H PRN (Reason: Shortness Of Breath Or Wheezing) montelukast 10 mg tablet 10 mg PO BEDTIME metformin 500 mg tablet 500 mg PO BID atorvastatin 10 mg tablet 10 mg PO DAILY lamotrigine 25 mg tablet 25 mg PO DAILY pantoprazole 40 mg tablet,delayed release (DR/EC) 40 mg PO DAILY@0630 trazodone 150 mg tablet 150 mg PO BEDTIME buspirone 10 mg tablet 10 mg PO BID benztropine 1 mg tablet 1 mg PO BID fluticasone propion-salmeterol [Advair Diskus] 100-50 mcg/dose blister with device 1 ea inhalation BID mirtazapine 7.5 mg tablet 7.5 mg PO BEDTIME Interventions: [place]-Suicide Risk Severity Scale Last Done: 10/31/23 19:21 ED Discharge Assessment Last Done: 10/31/23 20:24 Discharge Date/Time: 10/31/23 20:26
== END 2023-10-31 20:26 | disposition home or self-care (01) ==
LOC: HO.ED 20:16
PROVIDERS: Emergency Provider Internal Medicine; PCP Nurse Practitioner Family
DX: F41.0 Panic disorder [episodic paroxysmal anxiety] (principal); R45.851 Suicidal ideations; R44.0 Auditory hallucinations; F31.9 Bipolar disorder, unspecified; F60.3 Borderline personality disorder; F41.9 Anxiety disorder, unspecified; F43.12 Post-traumatic stress disorder, chronic; Z91.52 Personal history of nonsuicidal self-harm; Z91.51 Personal history of suicidal behavior; E11.9 Type 2 diabetes mellitus without complications; E78.5 Hyperlipidemia, unspecified; F17.210 Nicotine dependence, cigarettes, uncomplicated; D64.9 Anemia, unspecified; E66.9 Obesity, unspecified; Z68.37 Body mass index [BMI] 37.0-37.9, adult; Z79.84 Long term (current) use of oral hypoglycemic drugs; Z79.899 Other long term (current) drug therapy; Z79.02 Long term (current) use of antithrombotics/antiplatelets
CPT/HCPCS: 99284

== ENCOUNTER 2023-11-09 17:50 | Emergency (ER) | payer MEDICARE, MEDICAID, SELFPAY ==
--- NOTE | 2023-11-09 17:56 | ED_ITS ---
HPI - Psych General Chief Complaint: Psychiatric Symptoms Stated Complaint: grp home, hearing voices telling her to OD Time Seen by Provider: 11/09/23 17:51 Source: patient Mode of arrival: EMS Limitations: no limitations History of Present Illness HPI Narrative: patient comes to the emergency room complaining of hearing voices telling her to overdose with aspirin. patient states that she called the ambulance before attempting to hurt herself. However, yesterday she self-inflicted superficial scratches to her left forearm. Patient has been evaluated multiple times for similar complaints. Related Data Home Medications Medication Instructions Recorded Confirmed fluoxetine 40 mg capsule 80 mg PO DAILY 08/25/23 10/13/23 lorazepam 0.5 mg tablet 0.5 mg PO DAILY PRN Anxiety 08/31/23 10/28/23 albuterol sulfate 90 mcg/actuation 2 inh inhalation Q4H PRN Shortness 09/17/23 10/28/23 aerosol inhaler (Ventolin HFA) Of Breath Or Wheezing famotidine 10 mg tablet 10 mg PO BID@0630,1630 09/17/23 10/13/23 fluphenazine HCl 5 mg tablet 5 mg PO BID 09/17/23 10/13/23 montelukast 10 mg tablet 10 mg PO BEDTIME 09/17/23 10/28/23 atorvastatin 10 mg tablet 10 mg PO DAILY 10/04/23 10/28/23 benztropine 1 mg tablet 1 mg PO BID 10/04/23 10/28/23 buspirone 10 mg tablet 10 mg PO BID 10/04/23 10/13/23 fluticasone 100 mcg-salmeterol 50 1 ea inhalation BID 10/04/23 10/13/23 mcg/dose blistr powdr for inhalation (Advair Diskus) lamotrigine 25 mg tablet 25 mg PO DAILY 10/04/23 10/13/23 metformin 500 mg tablet 500 mg PO BID 10/04/23 10/13/23 mirtazapine 7.5 mg tablet 7.5 mg PO BEDTIME 10/04/23 10/13/23 pantoprazole 40 mg tablet,delayed 40 mg PO DAILY@0630 10/04/23 10/13/23 release trazodone 150 mg tablet 150 mg PO BEDTIME 10/04/23 10/28/23 Previous Rx's Medication Instructions Recorded nitrofurantoin 100 mg PO BID 5 days #10 caps 10/25/23 monohydrate/macrocrystals 100 mg capsule (Macrobid) Allergies Allergy/AdvReac Type Severity Reaction Status Date / Time azithromycin [AZITHROMYCIN] Allergy Severe Rash Verified 11/09/23 18:02 Fish Containing Products Allergy Severe Anaphylaxis Verified 11/09/23 18:02 codeine [Codeine] Allergy Intermediate Rash Verified 11/09/23 18:02 Penicillins Allergy Intermediate Rash Verified 11/09/23 18:02 prednisone [Prednisone] Allergy Intermediate Rash Verified 11/09/23 18:02 Sulfa (Sulfonamide Allergy Intermediate Rash Verified 11/09/23 18:02 Antibiotics) [Sulfa (Sulfonamides)] ziprasidone [From Geodon] Allergy Intermediate dysuria, Verified 11/09/23 18:02 rash Review of Systems 2 Review of Systems: Constitutional : No Weight loss, No Fever, No Chills, No Night Sweats, No Fatigue, No Malaise ENT/Mouth : No Hearing loss, No Ear Pain, No Nasal Congestion, No Sinus Pain, No Hoarseness, No sore throat, No Rhinorrhea, No Swallowing Difficulty Eyes: No Eye Pain, No Swelling, No Redness, No Foreign Body, No Discharge, No Vision Changes Cardiovascular : No Chest Pain, No SOB, No Dyspnea on Exertion, No Orthopnea, No Edema, No Palpitations Respiratory : No Cough, No Sputum, No Wheezing, No Smoke Exposure, No Dyspnea Gastrointestinal : No Nausea, No Vomiting, No Diarrhea, No Constipation, No abdominal Pain, No Hematochezia, No Melena Genitourinary : no irregular bleeding, No Dysuria, No Urinary Frequency, No Hematuria, No Urinary Incontinence, No Urgency, No Flank Pain, No Urinary Flow Changes, No Hesitancy Musculoskeletal : No joint pain, No Myalgias, No Joint Swelling Skin : No Skin Lesions, No rash Neuro : No Weakness, No Numbness, No Paresthesias, No Loss of Consciousness, No Dizziness, No Headache Psych : Complaining of anxiety, depression, auditory hallucinations, no active SI other than the voices telling her to hurt herself by overdosing with aspirin Heme/Lymph: No Bruising, No Bleeding,No Lymphadenopathy Endocrine : No Polyuria, No Polydipsia, No Temperature Intolerance PMFSH Past Medical History Medical History Suicidal ideation MDD (major depressive disorder), recurrent episode, severe Chest pain Acute anxiety COVID-19 Full body hives Major depression Dizziness Suicide attempt UTI (urinary tract infection) Acetaminophen overdose COVID History of attempted suicide History of non-suicidal self-harm Hypomagnesemia Suicide attempt Suicide attempt by acetaminophen overdose Acetaminophen overdose Depression Diabetes type 2, controlled Borderline personality disorder PTSD (post-traumatic stress disorder) Overdose GERD (gastroesophageal reflux disease) Mood disorder Hyperlipidemia Bronchitis Social History Social History Household Members: Other Household Members Other:: [facility] Housing: Other Housing Other:: [facility] Do you presently have visiting nurse or other home services: Yes Unable to assess alcohol history related to: Unknown Alcohol intake: current Alcohol intake frequency: does not drink Comment: 1:1 sitter Patient Tobacco Use Status: Former Tobacco user Quit Date: NA Tobacco use type: Cigarette Cigarette Packs Per Day: 1 Cigarettes Per Day: 20.0 Years Smoked: 22 e-Cigarette/Vaping Use: Currently Using Second Hand Smoke Exposure: No Substance Use Type: Marijuana Advance Directives: No Advance Directives Information Provided: No Healthcare Proxy: No Guardian: No service: No Current occupational status: unemployed and disabled Sexual orientation: Straight/Heterosexual Physical Exam 2 Vital Signs: Vital Signs: Last Vital Signs Temp 99.1 F 11/09/23 18:10 Pulse 102 H 11/09/23 18:10 Resp 16 11/09/23 18:10 BP 140/89 H 11/09/23 18:10 Pulse Ox 97 11/09/23 18:10 O2 Del Method Room Air 11/09/23 18:10 BMI result Body Mass Index 37.8 Const: Other: Appearance: Alert. Oriented X3. No acute distress. Eyes: Pupils equal, round and reactive to light. ENT: Pharynx normal. Neck: Normal inspection. Neck supple. No lymph nodes noted. No crepitus CVS: Normal heart rate and rhythm. Pulses normal. Normal S1 and S2 Respiratory: No respiratory distress. Breath sounds normal. No Wheezing. No rales Abdomen: Soft and nontender. No rigidity. No distention. Skin: superficial lacerations to the left forearm, no bleeding Extremities: No lower extremity edema. No Lacerations. No Rash Neuro: Oriented X 3. No motor deficit. No sensory deficit. Moving all extremities. No slurred speech. CN 2 through 12 grossly intact Psych: calm, seems anxious Course Course Course Narrative: - all of patient's labs pending Medical Decision Making Medical Decision Making [facility] Narrative: - my interpretation of labs: At baseline hematology and chemistry, hCG negative, urinalysis negative for UTI, no antibiotics indicated, toxicology negative. - The care team evaluated the patient, patient feeling safe to return to her [facility], no longer suicidal. Differential Diagnosis Differential Diagnoses: The differential diagnosis associated with the presentation includes ( Anxiety, depression) Lab Data [facility] Lab Attestation statement: I reviewed the patient's lab results. 11/09/23 18:24 11/09/23 18:24 Labs: Lab Results 11/09/23 11/09/23 Range/Units 18:24 19:04 WBC 6.9 (4.8-10.8) X10*3/uL RBC 3.55 L (4.20-5.50) X10*6/uL Hgb 9.5 L (12.0-16.0) g/dl Hct 30.0 L (37.0-47.0) % MCV 84.5 (80.0-98.0) fL MCH 26.8 L (27.0-33.0) pg MCHC 31.7 (31.0-35.0) g/dl RDW 14.4 (11.0-16.0) % Plt Count 275 (160-400) X10*3/uL MPV 9.9 (9.4-12.3) fL Immature Gran % (Auto) 0.4 (0.0-0.4) % Neut % (Auto) 58.0 (45-73) % Lymph % (Auto) 24.5 (20-40) % [place] % (Auto) 10.0 (2-11) % Eos % (Auto) 6.4 H (0-4) % Baso % (Auto) 0.7 (0-2) % Lymph # (Auto) 1.7 (1.2-4.9) X10*3/uL [place] # (Auto) 0.7 (0.1-1.2) X10*3/uL Eos # (Auto) 0.4 (0.0-0.4) X10*3/uL Baso # (Auto) 0.1 (0.0-0.2) X10*3/uL Abs Immat Gran (auto) 0.03 (0.00-0.03) X10*3/uL Absolute Neuts (auto) 4.0 (2.0-8.3) x10*3/uL Absolute Nucleated RBC 0.000 (0.0-0.012) X10*3/uL Nucleated RBC % (auto) 0.0 (0.0-0.2) /100WBC Sodium 140 (135-145) mmol/L Potassium 3.8 (3.3-5.1) mmol/L Chloride 106 (96-108) mmol/L Carbon Dioxide 24 (22-29) mmol/L Anion Gap 14 (12-20) BUN 15 (9-16) mg/dL Creatinine 0.84 (0.5-1.4) mg/dL Estim Creat Clear Calc 97.1 Estimated GFR > 60 Random Glucose 121 H (60-115) mg/dL Calcium 9.4 (8.4-10.2) mg/dL Total Bilirubin 0.2 (0.0-1.0) mg/dL Direct Bilirubin < 0.2 (0.0-0.5) mg/dL AST 16 (5-31) U/L ALT 12 (0-31) U/L Alkaline Phosphatase 111 (39-117) U/L Total Protein 7.1 (6.5-8.0) g/dL Albumin 4.3 (3.5-5.0) g/dL Beta HCG, Quant < 2 mIU/mL Urine Color Yellow Urine Appearance Clear Urine pH 6.0 (5.0-9.0) Ur Specific [place] 1.010 (1.005-1.025) Urine Protein Negative (Neg-Trace) mg/dL Urine Glucose (UA) Negative (Negative) mg/dL Urine Ketones Negative (Negative) mg/dL Urine Blood Negative (Negative) Urine Nitrite Negative (Negative) Ur Leukocyte Esterase Trace H (Negative) Urine RBC 0-2 (0-2) /HPF Urine WBC 0-5 (0-5) /HPF Ur Squamous Epith Cells 0-2 (0-2) /HPF Urine Bacteria None Seen (None Seen) Hyaline Casts 0-2 (0-2) /LPF Salicylates < 5.0 L (15-30) mg/dL Urine Opiates Screen Not Detected (Not Detect) Urine Fentanyl Screen Not Detected (Not Detect) Acetaminophen < 3 (<30) mcg/mL Ur Barbiturates Screen Not Detected (Not Detect) Ur Phencyclidine Scrn Not Detected (Not Detect) Ur Amphetamines Screen Not Detected (Not Detect) U Benzodiazepines Scrn Not Detected (Not Detect) Urine Cocaine Screen Not Detected (Not Detect) U Marijuana (THC) Screen Not Detected (Not Detect) Ethyl Alcohol < 10 mg/dL COVID-19 (NICK) Negative (Negative) COVID-19 Clin Com See Note Discharge Plan Discharge Clinical Impression: Anxiety Patient Disposition: Home, Self-Care Instructions: Anxiety (ED) Additional Instructions: Please follow-up with your primary care physician tomorrow. If you have any worsening or new symptoms, please return to the emergency room or call 911 Prescriptions: No Action fluoxetine 40 mg capsule 80 mg PO DAILY lorazepam 0.5 mg tablet 0.5 mg PO DAILY PRN (Reason: Anxiety) nitrofurantoin monohyd/m-cryst [Macrobid] 100 mg capsule 100 mg PO BID 5 Days Qty: 10 0RF Rx Instructions: must administer with a meal/food famotidine 10 mg Tablet 10 mg PO BID@0630,1630 fluphenazine HCl 5 mg tablet 5 mg PO BID albuterol sulfate [Ventolin HFA] 90 mcg/actuation HFA aerosol inhaler 2 inh inhalation Q4H PRN (Reason: Shortness Of Breath Or Wheezing) montelukast 10 mg tablet 10 mg PO BEDTIME metformin 500 mg tablet 500 mg PO BID atorvastatin 10 mg tablet 10 mg PO DAILY lamotrigine 25 mg tablet 25 mg PO DAILY pantoprazole 40 mg tablet,delayed release (DR/EC) 40 mg PO DAILY@0630 trazodone 150 mg tablet 150 mg PO BEDTIME buspirone 10 mg tablet 10 mg PO BID benztropine 1 mg tablet 1 mg PO BID fluticasone propion-salmeterol [Advair Diskus] 100-50 mcg/dose blister with device 1 ea inhalation BID mirtazapine 7.5 mg tablet 7.5 mg PO BEDTIME Interventions: [place]-Suicide Risk Severity Scale Last Done: 11/09/23 18:08
[2023-11-09 18:02] VITALS: BMI 37.8
[2023-11-09 18:10] VITALS: BP 140/89; PULSE 102; RESP 16; TEMP 37.3; O2SAT 97
[2023-11-09 18:31] LABS: MANUAL DIFF FLAG NO
[2023-11-09 18:32] LABS: Basophils Absolute Auto 0.1 X10*3/uL (0.0-0.2); Basophils Percent Auto 0.7 % (0-2); Eosinophils Absolute Auto 0.4 X10*3/uL (0.0-0.4); Eosinophils Percent Auto 6.4 % (0-4); Hemoglobin 9.5 g/dl (12.0-16.0); Imm Gran Abs Auto 0.03 X10*3/uL (0.00-0.03); Imm Gran Pct Auto 0.4 % (0.0-0.4); Lymphocytes Absolute Auto 1.7 X10*3/uL (1.2-4.9); Lymphocytes Percent Auto 24.5 % (20-40); Mean Corpuscular HGB Conc 31.7 g/dl (31.0-35.0); Mean Corpuscular Hemoglobin 26.8 pg (27.0-33.0); Mean Corpuscular Volume 84.5 fL (80.0-98.0); Mean Platelet Volume 9.9 fL (9.4-12.3); Monocytes Absolute Auto 0.7 X10*3/uL (0.1-1.2); Platelet Count 275 X10*3/uL (160-400); Red Blood Count 3.55 X10*6/uL (4.20-5.50); Red Cell Distribution Width 14.4 % (11.0-16.0); White Blood Count 6.9 X10*3/uL (4.8-10.8)
[2023-11-09 18:45] LABS: Acetaminophen LAB < 3 mcg/mL (<30); Salicylate < 5.0 mg/dL (15-30)
[2023-11-09 18:51] LABS: COVID-19 Test Negative (Negative); IDNOW Serial# 08D9AD1C
[2023-11-09 18:52] LABS: Alanine Aminotransferase 12 U/L (0-31); Albumin Level 4.3 g/dL (3.5-5.0); Alkaline Phosphatase 111 U/L (39-117); Anion Gap 14 (12-20); Aspartate Amino Transferase 16 U/L (5-31); Bilirubin Direct < 0.2 mg/dL (0.0-0.5); Bilirubin Total 0.2 mg/dL (0.0-1.0); Blood Urea Nitrogen 15 mg/dL (9-16); Calcium 9.4 mg/dL (8.4-10.2); Carbon Dioxide 24 mmol/L (22-29); Chloride 106 mmol/L (96-108); Creatinine Clr Calc Pharmacy 97.1; Estimated Glomerular Filt Rate > 60; Ethanol < 10 mg/dL; Glucose Random 121 mg/dL (60-115); HCG Quantitative < 2 mIU/mL; Potassium 3.8 mmol/L (3.3-5.1); Sodium 140 mmol/L (135-145); Total Protein 7.1 g/dL (6.5-8.0)
[2023-11-09 19:12] LABS: Appearance Urine Clear; Color Urine Yellow; Glucose Urine UA Negative (Negative); Leukocyte Esterase Urine Trace (Negative); Nitrite Urine Negative (Negative); UMIC TRIGGER UACC YES; Urine Blood Negative (Negative); Urine Ketones Negative (Negative); Urine Protein Negative (Neg-Trace)
[2023-11-09 19:15] LABS: Bacteria Urine None Seen (None Seen); Hyaline Casts Urine 0-2 /LPF (0-2); RBC Urine 0-2 /HPF (0-2); Squamous Epithelial Cell Urine 0-2 /HPF (0-2); WBC Urine 0-5 /HPF (0-5)
[2023-11-09 20:22] LABS: Amphetamine Screen Urine Not Detected (Not Detect); Barbiturates, Urine Not Detected (Not Detect); Benzodiazepines Screen Urine Not Detected (Not Detect); Cannabinoid Screen Urine Not Detected (Not Detect); Cocaine Screen Urine Not Detected (Not Detect); Fentanyl, urine Not Detected (Not Detect); Opiate Screen Urine Not Detected (Not Detect); Phencyclidine Screen Urine Not Detected (Not Detect)
== END 2023-11-09 22:41 | disposition home or self-care (01) ==
PROVIDERS: Emergency Provider Emergency Medicine; PCP Nurse Practitioner Family
DX: F41.9 Anxiety disorder, unspecified (principal); R44.0 Auditory hallucinations; R45.851 Suicidal ideations; F31.9 Bipolar disorder, unspecified; F60.3 Borderline personality disorder; F43.12 Post-traumatic stress disorder, chronic; Z91.51 Personal history of suicidal behavior; Z91.52 Personal history of nonsuicidal self-harm; E11.9 Type 2 diabetes mellitus without complications; E78.5 Hyperlipidemia, unspecified; D64.9 Anemia, unspecified; F17.210 Nicotine dependence, cigarettes, uncomplicated; E66.9 Obesity, unspecified; Z68.37 Body mass index [BMI] 37.0-37.9, adult; Z79.84 Long term (current) use of oral hypoglycemic drugs; Z79.899 Other long term (current) drug therapy; Z79.02 Long term (current) use of antithrombotics/antiplatelets; Z11.52 Encounter for screening for COVID-19
CPT/HCPCS: 36415; 80048; 80076; 80143; 80179; 80307; 81001; 84702; 85025; 87635; 99284; S9485

== ENCOUNTER 2023-11-13 14:09 | Emergency (ER) | payer MEDICARE, MEDICAID, SELFPAY ==
[2023-11-13 14:19] VITALS: BP 141/93; PULSE 93; RESP 18; TEMP 36.7; O2SAT 95; BMI 40.0
--- NOTE | 2023-11-13 14:29 | ED.PSYCH ---
HPI - Psych General Chief Complaint: Psychiatric Symptoms Stated Complaint: SI W/PLAN OF OD, AUD HALLUCINATION PER EMS Time Seen by Provider: 11/13/23 14:12 Source: patient Mode of arrival: EMS Limitations: no limitations History of Present Illness HPI Narrative: Patient comes to the emergency room complaining of hearing voices telling her to overdose with aspirin or Tylenol. Patient has been seen multiple times in the ED for the same complaint. Patient was not yesterday at [facility]. Patient states that she did not take any medication prior to arrival, denies HI Related Data Home Medications Medication Instructions Recorded Confirmed fluoxetine 40 mg capsule 80 mg PO DAILY 08/25/23 10/13/23 lorazepam 0.5 mg tablet 0.5 mg PO DAILY PRN Anxiety 08/31/23 10/28/23 albuterol sulfate 90 mcg/actuation 2 inh inhalation Q4H PRN Shortness 09/17/23 10/28/23 aerosol inhaler (Ventolin HFA) Of Breath Or Wheezing famotidine 10 mg tablet 10 mg PO BID@0630,1630 09/17/23 10/13/23 fluphenazine HCl 5 mg tablet 5 mg PO BID 09/17/23 10/13/23 montelukast 10 mg tablet 10 mg PO BEDTIME 09/17/23 10/28/23 atorvastatin 10 mg tablet 10 mg PO DAILY 10/04/23 10/28/23 benztropine 1 mg tablet 1 mg PO BID 10/04/23 10/28/23 buspirone 10 mg tablet 10 mg PO BID 10/04/23 10/13/23 fluticasone 100 mcg-salmeterol 50 1 ea inhalation BID 10/04/23 10/13/23 mcg/dose blistr powdr for inhalation (Advair Diskus) lamotrigine 25 mg tablet 25 mg PO DAILY 10/04/23 10/13/23 metformin 500 mg tablet 500 mg PO BID 10/04/23 10/13/23 mirtazapine 7.5 mg tablet 7.5 mg PO BEDTIME 10/04/23 10/13/23 pantoprazole 40 mg tablet,delayed 40 mg PO DAILY@0630 10/04/23 10/13/23 release trazodone 150 mg tablet 150 mg PO BEDTIME 10/04/23 10/28/23 Previous Rx's Medication Instructions Recorded nitrofurantoin 100 mg PO BID 5 days #10 caps 10/25/23 monohydrate/macrocrystals 100 mg capsule (Macrobid) Allergies Allergy/AdvReac Type Severity Reaction Status Date / Time azithromycin [AZITHROMYCIN] Allergy Severe Rash Verified 11/09/23 18:02 Fish Containing Products Allergy Severe Anaphylaxis Verified 11/09/23 18:02 codeine [Codeine] Allergy Intermediate Rash Verified 11/09/23 18:02 Penicillins Allergy Intermediate Rash Verified 11/09/23 18:02 prednisone [Prednisone] Allergy Intermediate Rash Verified 11/09/23 18:02 Sulfa (Sulfonamide Allergy Intermediate Rash Verified 11/09/23 18:02 Antibiotics) [Sulfa (Sulfonamides)] ziprasidone [From Geodon] Allergy Intermediate dysuria, Verified 11/09/23 18:02 rash Review of Systems Review of Systems: Constitutional : No Weight loss, No Fever, No Chills, No Night Sweats, No Fatigue, No Malaise ENT/Mouth : No Hearing loss, No Ear Pain, No Nasal Congestion, No Sinus Pain, No Hoarseness, No sore throat, No Rhinorrhea, No Swallowing Difficulty Eyes: No Eye Pain, No Swelling, No Redness, No Foreign Body, No Discharge, No Vision Changes Cardiovascular : No Chest Pain, No SOB, No Dyspnea on Exertion, No Orthopnea, No Edema, No Palpitations Respiratory : No Cough, No Sputum, No Wheezing, No Smoke Exposure, No Dyspnea Gastrointestinal : No Nausea, No Vomiting, No Diarrhea, No Constipation, No abdominal Pain, No Hematochezia, No Melena Genitourinary : no irregular bleeding, No Dysuria, No Urinary Frequency, No Hematuria, No Urinary Incontinence, No Urgency, No Flank Pain, No Urinary Flow Changes, No Hesitancy Musculoskeletal : No joint pain, No Myalgias, No Joint Swelling Skin : No Skin Lesions, No rash Neuro : No Weakness, No Numbness, No Paresthesias, No Loss of Consciousness, No Dizziness, No Headache Psych : No Anxiety/Panic, No Depression, No SI/HI/AH/VH, complaining of hearing voices telling her to overdose with Tylenol or aspirin Heme/Lymph: No Bruising, No Bleeding,No Lymphadenopathy Endocrine : No Polyuria, No Polydipsia, No Temperature Intolerance PMFSH Past Medical History Medical History Suicidal ideation MDD (major depressive disorder), recurrent episode, severe Chest pain Acute anxiety COVID-19 Full body hives Major depression Dizziness Suicide attempt UTI (urinary tract infection) Acetaminophen overdose COVID History of attempted suicide History of non-suicidal self-harm Hypomagnesemia Suicide attempt Suicide attempt by acetaminophen overdose Acetaminophen overdose Depression Diabetes type 2, controlled Borderline personality disorder PTSD (post-traumatic stress disorder) Overdose GERD (gastroesophageal reflux disease) Mood disorder Hyperlipidemia Bronchitis Social History Social History Household Members: Other Household Members Other:: [facility] Housing: Other Housing Other:: [facility] Do you presently have visiting nurse or other home services: Yes Unable to assess alcohol history related to: Unknown Alcohol intake: current Alcohol intake frequency: does not drink Comment: 1:1 sitter Patient Tobacco Use Status: Former Tobacco user Quit Date: NA Tobacco use type: Cigarette Cigarette Packs Per Day: 1 Cigarettes Per Day: 20.0 Years Smoked: 22 e-Cigarette/Vaping Use: Currently Using Second Hand Smoke Exposure: No Substance Use Type: Marijuana Advance Directives: No Advance Directives Information Provided: No service: No Current occupational status: unemployed and disabled Sexual orientation: Straight/Heterosexual Physical Exam Vital Signs: Vital Signs: Last Vital Signs Temp 98.0 F 11/13/23 14:19 Pulse 93 11/13/23 14:19 Resp 18 11/13/23 14:19 BP 141/93 H 11/13/23 14:19 Pulse Ox 95 11/13/23 14:19 O2 Del Method Room Air 11/13/23 14:19 BMI result Body Mass Index 40.0 Const: Other: Appearance: Alert. Oriented X3. No acute distress. Eyes: Pupils equal, round and reactive to light. ENT: Pharynx normal. Neck: Normal inspection. Neck supple. No lymph nodes noted. No crepitus CVS: Normal heart rate and rhythm. Pulses normal. Normal S1 and S2 Respiratory: No respiratory distress. Breath sounds normal. No Wheezing. No rales Abdomen: Soft and nontender. No rigidity. No distention. Skin: Skin warm and dry. Normal skin color. Normal skin turgor. Extremities: No lower extremity edema. No Lacerations. No Rash Neuro: Oriented X 3. No motor deficit. No sensory deficit. Moving all extremities. No slurred speech. CN 2 through 12 grossly intact Psych: calm, cooperative, normal affect Course Course Course Narrative: We have labs from patient from 4 days ago, basic labs for Toxicology pending Care team consult pending Medical Decision Making Medical Decision Making [facility] Narrative: My interpretation of labs: Hematology chemistry and toxicology at baseline -care team evaluated the patient, patient is no longer suicidal or anxious, patient can return to her residential Differential Diagnosis Differential Diagnoses: The differential diagnosis associated with the presentation includes (Anxiety, depression, hallucinations) Admission/Observation Consideration of admission/observation: Escalation of care including admission/observation considered (Patient physician observation waiting to be seen by the care team) Lab Data [facility] Lab Attestation statement: I reviewed the patient's lab results. 11/13/23 15:02 11/13/23 14:50 Labs: Lab Results 11/13/23 11/13/23 11/13/23 Range/Units 14:40 14:50 15:02 WBC 6.1 (4.8-10.8) X10*3/uL RBC 3.71 L (4.20-5.50) X10*6/uL Hgb 9.8 L (12.0-16.0) g/dl Hct 31.1 L (37.0-47.0) % MCV 83.8 (80.0-98.0) fL MCH 26.4 L (27.0-33.0) pg MCHC 31.5 (31.0-35.0) g/dl RDW 14.4 (11.0-16.0) % Plt Count 317 (160-400) X10*3/uL MPV 10.1 (9.4-12.3) fL Immature Gran % (Auto) 0.3 (0.0-0.4) % Neut % (Auto) 65.8 (45-73) % Lymph % (Auto) 21.2 (20-40) % [place] % (Auto) 8.1 (2-11) % Eos % (Auto) 4.3 H (0-4) % Baso % (Auto) 0.3 (0-2) % Lymph # (Auto) 1.3 (1.2-4.9) X10*3/uL [place] # (Auto) 0.5 (0.1-1.2) X10*3/uL Eos # (Auto) 0.3 (0.0-0.4) X10*3/uL Baso # (Auto) 0.0 (0.0-0.2) X10*3/uL Abs Immat Gran (auto) 0.02 (0.00-0.03) X10*3/uL Absolute Neuts (auto) 4.0 (2.0-8.3) x10*3/uL Absolute Nucleated RBC 0.000 (0.0-0.012) X10*3/uL Nucleated RBC % (auto) 0.0 (0.0-0.2) /100WBC Sodium 138 (135-145) mmol/L Potassium 3.9 (3.3-5.1) mmol/L Chloride 105 (96-108) mmol/L Carbon Dioxide 22 (22-29) mmol/L Anion Gap 15 (12-20) BUN 15 (9-16) mg/dL Creatinine 0.78 (0.5-1.4) mg/dL Estim Creat Clear Calc 108.0 Estimated GFR > 60 Random Glucose 96 (60-115) mg/dL Calcium 9.6 (8.4-10.2) mg/dL Total Bilirubin 0.2 (0.0-1.0) mg/dL AST 16 (5-31) U/L ALT 12 (0-31) U/L Alkaline Phosphatase 91 (39-117) U/L Total Protein 7.2 (6.5-8.0) g/dL Albumin 4.3 (3.5-5.0) g/dL Urine Test NEGATIVE (NEGATIVE) Salicylates < 5.0 L (15-30) mg/dL Urine Opiates Screen Not Detected (Not Detect) Urine Fentanyl Screen Not Detected (Not Detect) Acetaminophen < 3 (<30) mcg/mL Ur Barbiturates Screen Not Detected (Not Detect) Ur Phencyclidine Scrn Not Detected (Not Detect) Ur Amphetamines Screen Not Detected (Not Detect) U Benzodiazepines Scrn Not Detected (Not Detect) Urine Cocaine Screen Not Detected (Not Detect) U Marijuana (THC) Screen Not Detected (Not Detect) Ethyl Alcohol < 10 mg/dL Discharge Plan Discharge Clinical Impression: Anxiety Patient Disposition: Home, Self-Care Instructions: Anxiety (ED) Additional Instructions: Please follow-up with your primary care physician tomorrow. If you have any worsening or new symptoms, please return to the emergency room or call 911 Prescriptions: No Action fluoxetine 40 mg capsule 80 mg PO DAILY lorazepam 0.5 mg tablet 0.5 mg PO DAILY PRN (Reason: Anxiety) nitrofurantoin monohyd/m-cryst [Macrobid] 100 mg capsule 100 mg PO BID 5 Days Qty: 10 0RF Rx Instructions: must administer with a meal/food famotidine 10 mg Tablet 10 mg PO BID@0630,1630 fluphenazine HCl 5 mg tablet 5 mg PO BID albuterol sulfate [Ventolin HFA] 90 mcg/actuation HFA aerosol inhaler 2 inh inhalation Q4H PRN (Reason: Shortness Of Breath Or Wheezing) montelukast 10 mg tablet 10 mg PO BEDTIME metformin 500 mg tablet 500 mg PO BID atorvastatin 10 mg tablet 10 mg PO DAILY lamotrigine 25 mg tablet 25 mg PO DAILY pantoprazole 40 mg tablet,delayed release (DR/EC) 40 mg PO DAILY@0630 trazodone 150 mg tablet 150 mg PO BEDTIME buspirone 10 mg tablet 10 mg PO BID benztropine 1 mg tablet 1 mg PO BID fluticasone propion-salmeterol [Advair Diskus] 100-50 mcg/dose blister with device 1 ea inhalation BID mirtazapine 7.5 mg tablet 7.5 mg PO BEDTIME
[2023-11-13 15:07] LABS: MANUAL DIFF FLAG NO
[2023-11-13 15:11] LABS: UPreg QC Valid YES; Urine Pregnancy NEGATIVE (NEGATIVE)
[2023-11-13 15:17] LABS: Amphetamine Screen Urine Not Detected (Not Detect); Barbiturates, Urine Not Detected (Not Detect); Benzodiazepines Screen Urine Not Detected (Not Detect); Cannabinoid Screen Urine Not Detected (Not Detect); Cocaine Screen Urine Not Detected (Not Detect); Fentanyl, urine Not Detected (Not Detect); Opiate Screen Urine Not Detected (Not Detect); Phencyclidine Screen Urine Not Detected (Not Detect)
[2023-11-13 15:18] LABS: Basophils Percent Auto 0.3 % (0-2); Eosinophils Absolute Auto 0.3 X10*3/uL (0.0-0.4); Eosinophils Percent Auto 4.3 % (0-4); Hematocrit 31.1 % (37.0-47.0); Hemoglobin 9.8 g/dl (12.0-16.0); Imm Gran Abs Auto 0.02 X10*3/uL (0.00-0.03); Imm Gran Pct Auto 0.3 % (0.0-0.4); Lymphocytes Absolute Auto 1.3 X10*3/uL (1.2-4.9); Lymphocytes Percent Auto 21.2 % (20-40); Mean Corpuscular HGB Conc 31.5 g/dl (31.0-35.0); Mean Corpuscular Hemoglobin 26.4 pg (27.0-33.0); Mean Corpuscular Volume 83.8 fL (80.0-98.0); Mean Platelet Volume 10.1 fL (9.4-12.3); Monocytes Absolute Auto 0.5 X10*3/uL (0.1-1.2); Monocytes Percent Auto 8.1 % (2-11); Neutrophils Percent Auto 65.8 % (45-73); Platelet Count 317 X10*3/uL (160-400); Red Blood Count 3.71 X10*6/uL (4.20-5.50); Red Cell Distribution Width 14.4 % (11.0-16.0); White Blood Count 6.1 X10*3/uL (4.8-10.8)
[2023-11-13 15:22] LABS: Ethanol < 10 mg/dL
[2023-11-13 15:31] LABS: Acetaminophen LAB < 3 mcg/mL (<30); Salicylate < 5.0 mg/dL (15-30)
[2023-11-13 16:09] LABS: Anion Gap 15 (12-20)
[2023-11-13 16:14] LABS: Alanine Aminotransferase 12 U/L (0-31); Albumin Level 4.3 g/dL (3.5-5.0); Alkaline Phosphatase 91 U/L (39-117); Aspartate Amino Transferase 16 U/L (5-31); Bilirubin Total 0.2 mg/dL (0.0-1.0); Blood Urea Nitrogen 15 mg/dL (9-16); Calcium 9.6 mg/dL (8.4-10.2); Carbon Dioxide 22 mmol/L (22-29); Chloride 105 mmol/L (96-108); Estimated Glomerular Filt Rate > 60; Glucose Random 96 mg/dL (60-115); Potassium 3.9 mmol/L (3.3-5.1); Sodium 138 mmol/L (135-145); Total Protein 7.2 g/dL (6.5-8.0)
--- NOTE | 2023-11-13 16:42 | PC.NURSE ---
Lucita was BIBA after calling 911 to report SI with . On arrival Lucita elevated and pleasant verbalizing she wanted to come in and see everyone then go home. Lucita was at [facility] yesterday and stated she was just having some trouble at her assisted regulating her emotions. Lucita advocated that she was ready to discharge shortly after arriving and cleared Lucita for DC. [facility] to provide transportation. Lucita denying SI/HI/AVH
== END 2023-11-13 16:54 | disposition home or self-care (01) ==
PROVIDERS: Emergency Provider Emergency Medicine
DX: F41.9 Anxiety disorder, unspecified (principal); R44.0 Auditory hallucinations; R45.851 Suicidal ideations; Z79.899 Other long term (current) drug therapy
CPT/HCPCS: 36415; 80053; 80143; 80179; 80307; 81025; 85025; 99283; 99284; S9485

== ENCOUNTER 2023-11-14 17:43 | Emergency (ER) | payer MEDICARE, MEDICAID, SELFPAY ==
[2023-11-14 17:56] VITALS: BP 128/76; PULSE 80; RESP 19; TEMP 36.6; O2SAT 98; BMI 37.9
--- NOTE | 2023-11-14 18:14 | MHC.CARE ---
CARE Team is notified that pt has already been assessed by crisis teams x2 today, at [facility] this morning and by [facility] due to her baseline complaints of SI and AVH. Pt was discharged from [facility]. [facility] made an extensive safety plan with the pt, for 30 minute check in calls and that pt needs to remain in the half-way all evening and night, as pt was making threats to overdose on OTC meds that she typically obtains from a nearby [facility]. Per [facility] waterproofing supervisor, Lydia Curran, pt stated I want to go to [place] because Kait is the only one who understand me. CARE Team speaks with ED attending Dr. Ryan about pt's multiple crisis assessments and that [facility] crisis discouraged pt from coming to the ED as they feel she can be kept safe at the [facility] half-way. CARE Team clinician Nkechi Morin [facility] meets with pt to remind her of the safety plan with [facility]. This is done intentionally to set appropriate boundaries with pt so she does not have the expectation of seeing any specific employee. Pt voiced understanding of the safety plan, and had a full affect. CARE Team speaks with Vini Harris certified orthotist practice manager. He agrees with pt returning back to the [facility].
--- NOTE | 2023-11-14 18:20 | ED.PSYCH ---
HPI - Psych General Chief Complaint: Psychiatric Symptoms Stated Complaint: SI w/plan Time Seen by Provider: 11/14/23 17:55 Source: patient Mode of arrival: EMS Limitations: no limitations History of Present Illness HPI Narrative: Patient comes to the emergency room via ambulance from her [facility]. Patient was evaluated earlier today by a garage supervisor from [facility], as patient was complaining of suicidal ideation. Per [facility], the patient was cleared to stay in her [facility]. Patient states she went to come here any ways. Patient states that she is started from coming to the hospital back and forth . Related Data Home Medications Medication Instructions Recorded Confirmed fluoxetine 40 mg capsule 80 mg PO DAILY 08/25/23 10/13/23 lorazepam 0.5 mg tablet 0.5 mg PO DAILY PRN Anxiety 08/31/23 10/28/23 albuterol sulfate 90 mcg/actuation 2 inh inhalation Q4H PRN Shortness 09/17/23 10/28/23 aerosol inhaler (Ventolin HFA) Of Breath Or Wheezing famotidine 10 mg tablet 10 mg PO BID@0630,1630 09/17/23 10/13/23 fluphenazine HCl 5 mg tablet 5 mg PO BID 09/17/23 10/13/23 montelukast 10 mg tablet 10 mg PO BEDTIME 09/17/23 10/28/23 atorvastatin 10 mg tablet 10 mg PO DAILY 10/04/23 10/28/23 benztropine 1 mg tablet 1 mg PO BID 10/04/23 10/28/23 buspirone 10 mg tablet 10 mg PO BID 10/04/23 10/13/23 fluticasone 100 mcg-salmeterol 50 1 ea inhalation BID 10/04/23 10/13/23 mcg/dose blistr powdr for inhalation (Advair Diskus) lamotrigine 25 mg tablet 25 mg PO DAILY 10/04/23 10/13/23 metformin 500 mg tablet 500 mg PO BID 10/04/23 10/13/23 mirtazapine 7.5 mg tablet 7.5 mg PO BEDTIME 10/04/23 10/13/23 pantoprazole 40 mg tablet,delayed 40 mg PO DAILY@0630 10/04/23 10/13/23 release trazodone 150 mg tablet 150 mg PO BEDTIME 10/04/23 10/28/23 Previous Rx's Medication Instructions Recorded nitrofurantoin 100 mg PO BID 5 days #10 caps 10/25/23 monohydrate/macrocrystals 100 mg capsule (Macrobid) Allergies Allergy/AdvReac Type Severity Reaction Status Date / Time azithromycin [AZITHROMYCIN] Allergy Severe Rash Verified 11/09/23 18:02 Fish Containing Products Allergy Severe Anaphylaxis Verified 11/09/23 18:02 codeine [Codeine] Allergy Intermediate Rash Verified 11/09/23 18:02 Penicillins Allergy Intermediate Rash Verified 11/09/23 18:02 prednisone [Prednisone] Allergy Intermediate Rash Verified 11/09/23 18:02 Sulfa (Sulfonamide Allergy Intermediate Rash Verified 11/09/23 18:02 Antibiotics) [Sulfa (Sulfonamides)] ziprasidone [From Geodon] Allergy Intermediate dysuria, Verified 11/09/23 18:02 rash Review of Systems Review of Systems: Constitutional : No Weight loss, No Fever, No Chills, No Night Sweats, No Fatigue, No Malaise ENT/Mouth : No Hearing loss, No Ear Pain, No Nasal Congestion, No Sinus Pain, No Hoarseness, No sore throat, No Rhinorrhea, No Swallowing Difficulty Eyes: No Eye Pain, No Swelling, No Redness, No Foreign Body, No Discharge, No Vision Changes Cardiovascular : No Chest Pain, No SOB, No Dyspnea on Exertion, No Orthopnea, No Edema, No Palpitations Respiratory : No Cough, No Sputum, No Wheezing, No Smoke Exposure, No Dyspnea Gastrointestinal : No Nausea, No Vomiting, No Diarrhea, No Constipation, No abdominal Pain, No Hematochezia, No Melena Genitourinary : no irregular bleeding, No Dysuria, No Urinary Frequency, No Hematuria, No Urinary Incontinence, No Urgency, No Flank Pain, No Urinary Flow Changes, No Hesitancy Musculoskeletal : No joint pain, No Myalgias, No Joint Swelling Skin : No Skin Lesions, No rash Neuro : No Weakness, No Numbness, No Paresthesias, No Loss of Consciousness, No Dizziness, No Headache Psych : Complaining of anxiety, No Depression, No SI/HI/AH/VH, No Social Issues, Heme/Lymph: No Bruising, No Bleeding,No Lymphadenopathy Endocrine : No Polyuria, No Polydipsia, No Temperature Intolerance PMFSH Past Medical History Medical History Suicidal ideation MDD (major depressive disorder), recurrent episode, severe Chest pain Acute anxiety COVID-19 Full body hives Major depression Dizziness Suicide attempt UTI (urinary tract infection) Acetaminophen overdose COVID History of attempted suicide History of non-suicidal self-harm Hypomagnesemia Suicide attempt Suicide attempt by acetaminophen overdose Acetaminophen overdose Depression Diabetes type 2, controlled Borderline personality disorder PTSD (post-traumatic stress disorder) Overdose GERD (gastroesophageal reflux disease) Mood disorder Hyperlipidemia Bronchitis Social History Social History Household Members: Other Household Members Other:: [facility] Housing: Other Housing Other:: [facility] Do you presently have visiting nurse or other home services: Yes Unable to assess alcohol history related to: Unknown Alcohol intake: current Alcohol intake frequency: does not drink Comment: 1:1 sitter Patient Tobacco Use Status: Former Tobacco user Quit Date: NA Tobacco use type: Cigarette Cigarette Packs Per Day: 1 Cigarettes Per Day: 20.0 Years Smoked: 22 e-Cigarette/Vaping Use: Currently Using Second Hand Smoke Exposure: No Substance Use Type: Marijuana Advance Directives: No Advance Directives Information Provided: No service: No Current occupational status: unemployed and disabled Sexual orientation: Straight/Heterosexual Physical Exam Vital Signs: Vital Signs: Last Vital Signs Temp 98 F 11/14/23 17:56 Pulse 80 11/14/23 17:56 Resp 19 11/14/23 17:56 BP 128/76 11/14/23 17:56 Pulse Ox 98 11/14/23 17:56 BMI result Body Mass Index 37.9 Const: Other: Appearance: Alert. Oriented X3. No acute distress. Eyes: Pupils equal, round and reactive to light. ENT: Pharynx normal. Neck: Normal inspection. Neck supple. No lymph nodes noted. No crepitus CVS: Normal heart rate and rhythm. Pulses normal. Normal S1 and S2 Respiratory: No respiratory distress. Breath sounds normal. No Wheezing. No rales Abdomen: Soft and nontender. No rigidity. No distention. Skin: Skin warm and dry. Normal skin color. Normal skin turgor. Extremities: No lower extremity edema. No Lacerations. No Rash Neuro: Oriented X 3. No motor deficit. No sensory deficit. Moving all extremities. No slurred speech. CN 2 through 12 grossly intact Psych: calm, cooperative, normal affect Medical Decision Making Medical Decision Making MDM Narrative: I spoke with the care team Kait, who spoke to the garage supervisor of [facility] to confirm the story. In fact patient was asked not to come to the emergency room since she was cleared to stay in her [facility]. Lucita told us that Kait specifically said that patient was going to be admitted to the hospital and a bed was available for her. I discussed the patient with Kait, who affirms that she did not have this conversation with the patient at all. -patient has already been assessed by [facility], patient cleared to return to her [facility]. -[facility] staff willing to have her return, they are on the way to pick her up Differential Diagnosis Differential Diagnoses: The differential diagnosis associated with the presentation includes (Anxiety and depression) Consult Healthcare Provider Management of the patient was discussed with: Behavioral Health Provider Discharge Plan Discharge Clinical Impression: Anxiety Patient Disposition: Home, Self-Care Instructions: Anxiety (ED) Additional Instructions: Please follow-up with your primary care physician tomorrow. If you have any worsening or new symptoms, please return to the emergency room or call 911 Prescriptions: No Action fluoxetine 40 mg capsule 80 mg PO DAILY lorazepam 0.5 mg tablet 0.5 mg PO DAILY PRN (Reason: Anxiety) nitrofurantoin monohyd/m-cryst [Macrobid] 100 mg capsule 100 mg PO BID 5 Days Qty: 10 0RF Rx Instructions: must administer with a meal/food famotidine 10 mg Tablet 10 mg PO BID@0630,1630 fluphenazine HCl 5 mg tablet 5 mg PO BID albuterol sulfate [Ventolin HFA] 90 mcg/actuation HFA aerosol inhaler 2 inh inhalation Q4H PRN (Reason: Shortness Of Breath Or Wheezing) montelukast 10 mg tablet 10 mg PO BEDTIME metformin 500 mg tablet 500 mg PO BID atorvastatin 10 mg tablet 10 mg PO DAILY lamotrigine 25 mg tablet 25 mg PO DAILY pantoprazole 40 mg tablet,delayed release (DR/EC) 40 mg PO DAILY@0630 trazodone 150 mg tablet 150 mg PO BEDTIME buspirone 10 mg tablet 10 mg PO BID benztropine 1 mg tablet 1 mg PO BID fluticasone propion-salmeterol [Advair Diskus] 100-50 mcg/dose blister with device 1 ea inhalation BID mirtazapine 7.5 mg tablet 7.5 mg PO BEDTIME
--- NOTE | 2023-11-14 18:21 | PC.NURSE ---
care team states that pt will be picked up [facility]
--- NOTE | 2023-11-14 18:45 | MHC.CARE ---
CARE Team communicates to [facility] staff that the [facility] safety plan should be carried out- pt should not leave the SIM fields
== END 2023-11-15 00:24 | disposition home or self-care (01) ==
PROVIDERS: Emergency Provider Emergency Medicine; PCP Nurse Practitioner Family
DX: F41.9 Anxiety disorder, unspecified (principal); F31.9 Bipolar disorder, unspecified; R44.0 Auditory hallucinations; F60.3 Borderline personality disorder; E11.9 Type 2 diabetes mellitus without complications; E78.5 Hyperlipidemia, unspecified; D64.9 Anemia, unspecified; K21.9 Gastro-esophageal reflux disease without esophagitis; F17.210 Nicotine dependence, cigarettes, uncomplicated; E66.9 Obesity, unspecified; Z68.37 Body mass index [BMI] 37.0-37.9, adult; Z91.51 Personal history of suicidal behavior; Z91.52 Personal history of nonsuicidal self-harm; F43.12 Post-traumatic stress disorder, chronic; Z79.84 Long term (current) use of oral hypoglycemic drugs; Z79.899 Other long term (current) drug therapy; Z79.02 Long term (current) use of antithrombotics/antiplatelets
CPT/HCPCS: 99283

== ENCOUNTER 2023-11-16 16:18 | Emergency (ER) | payer MEDICARE, MEDICAID, SELFPAY ==
--- NOTE | 2023-11-16 16:24 | ED.PSYCH ---
HPI - Psych General Chief Complaint: Psychiatric Symptoms Stated Complaint: SI, WANTS TO OD Source: patient Mode of arrival: EMS Limitations: no limitations History of Present Illness HPI Narrative: 47-year-old female with a history of depression, anxiety, multiple suicide attempts, cutting behavior, diabetes, borderline personality, PTSD,, hyperlipidemia who is well-known to the emergency department and presents for suicidal ideation. Patient states she had a panic attack and felt his she wanted to harm herself she reported that she was aspirin she also told the nursing staff that she had visual hallucinations of her father with a gun to her head and telling her to overdose. Seen multiple times last month with her last visit on 11/14/2023. Patient states that several days prior she did cut both arms and her left breast with a plate that she smashed in use to cut herself. She did not cut herself at this time. Related Data Home Medications Medication Instructions Recorded Confirmed fluoxetine 40 mg capsule 80 mg PO DAILY 08/25/23 10/13/23 lorazepam 0.5 mg tablet 0.5 mg PO DAILY PRN Anxiety 08/31/23 10/28/23 albuterol sulfate 90 mcg/actuation 2 inh inhalation Q4H PRN Shortness 09/17/23 10/28/23 aerosol inhaler (Ventolin HFA) Of Breath Or Wheezing famotidine 10 mg tablet 10 mg PO BID@0630,1630 09/17/23 10/13/23 fluphenazine HCl 5 mg tablet 5 mg PO BID 09/17/23 10/13/23 montelukast 10 mg tablet 10 mg PO BEDTIME 09/17/23 10/28/23 atorvastatin 10 mg tablet 10 mg PO DAILY 10/04/23 10/28/23 benztropine 1 mg tablet 1 mg PO BID 10/04/23 10/28/23 buspirone 10 mg tablet 10 mg PO BID 10/04/23 10/13/23 fluticasone 100 mcg-salmeterol 50 1 ea inhalation BID 10/04/23 10/13/23 mcg/dose blistr powdr for inhalation (Advair Diskus) lamotrigine 25 mg tablet 25 mg PO DAILY 10/04/23 10/13/23 metformin 500 mg tablet 500 mg PO BID 10/04/23 10/13/23 mirtazapine 7.5 mg tablet 7.5 mg PO BEDTIME 10/04/23 10/13/23 pantoprazole 40 mg tablet,delayed 40 mg PO DAILY@0630 10/04/23 10/13/23 release trazodone 150 mg tablet 150 mg PO BEDTIME 10/04/23 10/28/23 Previous Rx's Medication Instructions Recorded nitrofurantoin 100 mg PO BID 5 days #10 caps 10/25/23 monohydrate/macrocrystals 100 mg capsule (Macrobid) Allergies Allergy/AdvReac Type Severity Reaction Status Date / Time azithromycin [AZITHROMYCIN] Allergy Severe Rash Verified 11/09/23 18:02 Fish Containing Products Allergy Severe Anaphylaxis Verified 11/09/23 18:02 codeine [Codeine] Allergy Intermediate Rash Verified 11/09/23 18:02 Penicillins Allergy Intermediate Rash Verified 11/09/23 18:02 prednisone [Prednisone] Allergy Intermediate Rash Verified 11/09/23 18:02 Sulfa (Sulfonamide Allergy Intermediate Rash Verified 11/09/23 18:02 Antibiotics) [Sulfa (Sulfonamides)] ziprasidone [From Geodon] Allergy Intermediate dysuria, Verified 11/09/23 18:02 rash Review of Systems Review of Systems: Yes all other systems are reviewed and are negative PMFSH Past Medical History Medical History Suicidal ideation MDD (major depressive disorder), recurrent episode, severe Chest pain Acute anxiety COVID-19 Full body hives Major depression Dizziness Suicide attempt UTI (urinary tract infection) Acetaminophen overdose COVID History of attempted suicide History of non-suicidal self-harm Hypomagnesemia Suicide attempt Suicide attempt by acetaminophen overdose Acetaminophen overdose Depression Diabetes type 2, controlled Borderline personality disorder PTSD (post-traumatic stress disorder) Overdose GERD (gastroesophageal reflux disease) Mood disorder Hyperlipidemia Bronchitis Social History Social History Household Members: Other Household Members Other:: Residential Housing: Other Housing Other:: Residential Do you presently have visiting nurse or other home services: Yes Unable to assess alcohol history related to: Unknown Alcohol intake: current Alcohol intake frequency: does not drink Comment: 1:1 sitter Patient Tobacco Use Status: Former Tobacco user Quit Date: NA Tobacco use type: Cigarette Cigarette Packs Per Day: 1 Cigarettes Per Day: 20.0 Years Smoked: 22 Smoked in Last 30 Days: Yes e-Cigarette/Vaping Use: Currently Using Second Hand Smoke Exposure: No Use of substances other than those prescribed or required for medical reasons: No Substance Use Type: Marijuana Advance Directives: No Advance Directives Information Provided: No Patient : No service: No Current occupational status: unemployed and disabled Sexual orientation: Straight/Heterosexual Physical Exam Vital Signs: Vital Signs: Last Vital Signs Temp 97.3 F 11/16/23 16:28 Pulse 91 11/16/23 16:28 Resp 20 11/16/23 16:28 BP 148/91 H 11/16/23 16:28 Pulse Ox 99 11/16/23 16:28 BMI result Body Mass Index 44.9 Vital signs were normal except for an elevated blood pressure of 148/91-patient has essential hypertension in this may be secondary to anxiety Exam: General: Awake, alert in no distress Head: Normocephalic, atraumatic EENT: PERRL, Lids normal, sclera normal, conjunctiva normal, nose normal , ears normal, throat without erythema or exudates Neck: Supple, no adenopathy Lung: breath sounds symmetric, no wheezing, rales or rhonchi Chest: symmetric movement, nontender Heart: regular rate and rhythm, normal S1, S2 no murmurs or rubs Abdomen: soft, non-tender, nondistended, normal bowel sounds Back: no vertebral tenderness, no CVAT Extremities: no deformities, moves all extremities symmetrically Skin: Multiple linear healing wounds on both arms and on left breast consistent with self cutting behavior Neuro: Awake, alert, oriented, normal speech, cranial nerves intact, moves all extremities symmetrically Psych: Pleasant, cooperative Medical Decision Making Medical Decision Making MDM Narrative: 47-year-old female with a history of depression, anxiety, multiple suicide attempts, cutting behavior, diabetes, borderline personality, PTSD,, hyperlipidemia who is well-known to the emergency department and presents for suicidal ideation with plan to overdose and visual hallucination of her father holding a gun to her head telling her to overdose. Physical examination did reveal multiple linear lacerations on her arms and left breast which are old with no evidence of cellulitis. Patient states she is feeling better and is no longer suicidal and is willing to go back to her care home. Patient has been seen by care team and the patient will be discharged. Differential diagnosis: Includes was not limited to anxiety, depression, suicidal ideation, cellulitis secondary to self 18:12 My interpretation patient's laboratory evaluation is as follows: WBC was normal 8800. Normocytic anemia with an H&H of 10.1 and 32.6-this is chronic. BMP was normal. Urinalysis was trace positive for leukocyte esterase. Microscopic revealed greater than 20 squamous cells-this is a non clean catch specimen I will not treat with antibiotics at this time unless cultures positive. The patient states that she has no longer suicidal and would like to be discharged back to her care home. Patient has been seen by care team they will arrange a ride back to her care home. Admission/Observation Consideration of admission/observation: Escalation of care including admission/observation considered Lab Data MDM Lab Attestation statement: I reviewed the patient's lab results. 11/16/23 16:47 11/16/23 16:47 Labs: Lab Results 11/16/23 11/16/23 11/16/23 Range/Units 16:41 16:44 16:47 WBC 8.8 (4.8-10.8) X10*3/uL RBC 3.87 L (4.20-5.50) X10*6/uL Hgb 10.1 L (12.0-16.0) g/dl Hct 32.6 L (37.0-47.0) % MCV 84.2 (80.0-98.0) fL MCH 26.1 L (27.0-33.0) pg MCHC 31.0 (31.0-35.0) g/dl RDW 14.6 (11.0-16.0) % Plt Count 350 (160-400) X10*3/uL MPV 9.6 (9.4-12.3) fL Immature Gran % (Auto) 0.5 H (0.0-0.4) % Neut % (Auto) 69.3 (45-73) % Lymph % (Auto) 18.6 L (20-40) % [place] % (Auto) 7.8 (2-11) % Eos % (Auto) 3.3 (0-4) % Baso % (Auto) 0.5 (0-2) % Lymph # (Auto) 1.6 (1.2-4.9) X10*3/uL [place] # (Auto) 0.7 (0.1-1.2) X10*3/uL Eos # (Auto) 0.3 (0.0-0.4) X10*3/uL Baso # (Auto) 0.0 (0.0-0.2) X10*3/uL Abs Immat Gran (auto) 0.04 H (0.00-0.03) X10*3/uL Absolute Neuts (auto) 6.1 (2.0-8.3) x10*3/uL Absolute Nucleated RBC 0.000 (0.0-0.012) X10*3/uL Nucleated RBC % (auto) 0.0 (0.0-0.2) /100WBC Sodium 137 (135-145) mmol/L Potassium 3.8 (3.3-5.1) mmol/L Chloride 102 (96-108) mmol/L Carbon Dioxide 26 (22-29) mmol/L Anion Gap 13 (12-20) BUN 13 (9-16) mg/dL Creatinine 0.81 (0.5-1.4) mg/dL Estim Creat Clear Calc 95.5 Estimated GFR > 60 Random Glucose 101 (60-115) mg/dL Calcium 9.3 (8.4-10.2) mg/dL Urine Color Dark Yellow Urine Appearance Cloudy Urine pH 5.5 (5.0-9.0) Ur Specific [place] 1.025 (1.005-1.025) Urine Protein Negative (Neg-Trace) mg/dL Urine Glucose (UA) Negative (Negative) mg/dL Urine Ketones Trace (Negative) mg/dL Urine Blood Negative (Negative) Urine Nitrite Negative (Negative) Ur Leukocyte Esterase Trace H (Negative) Urine RBC 0-2 (0-2) /HPF Urine WBC 6-10 H (0-5) /HPF Ur Squamous Epith Cells >20 (0-2) /HPF Urine Bacteria 2+ (None Seen) Hyaline Casts 0-2 (0-2) /LPF Salicylates < 5.0 L (15-30) mg/dL Urine Opiates Screen Not Detected (Not Detect) Urine Fentanyl Screen Not Detected (Not Detect) Acetaminophen < 3 (<30) mcg/mL Ur Barbiturates Screen Not Detected (Not Detect) Ur Phencyclidine Scrn Not Detected (Not Detect) Ur Amphetamines Screen Not Detected (Not Detect) U Benzodiazepines Scrn Not Detected (Not Detect) Urine Cocaine Screen Not Detected (Not Detect) U Marijuana (THC) Screen Not Detected (Not Detect) Ethyl Alcohol < 10 mg/dL COVID-19 (NICK) Negative (Negative) COVID-19 Clin Com See Note Chronic Conditions Patient?s care impacted by: Diabetes and Hypertension Discharge Plan Discharge Clinical Impression: Suicidal ideation, Panic attack Patient Disposition: Home, Self-Care Additional Instructions: Continue taking medications as prescribed by your providers Follow-up with your doctor in 2 days. Please return to the emergency department if your symptoms get worse or if you develop any symptoms that are concerning to you. Prescriptions: No Action fluoxetine 40 mg capsule 80 mg PO DAILY lorazepam 0.5 mg tablet 0.5 mg PO DAILY PRN (Reason: Anxiety) nitrofurantoin monohyd/m-cryst [Macrobid] 100 mg capsule 100 mg PO BID 5 Days Qty: 10 0RF Rx Instructions: must administer with a meal/food famotidine 10 mg Tablet 10 mg PO BID@0630,1630 fluphenazine HCl 5 mg tablet 5 mg PO BID albuterol sulfate [Ventolin HFA] 90 mcg/actuation HFA aerosol inhaler 2 inh inhalation Q4H PRN (Reason: Shortness Of Breath Or Wheezing) montelukast 10 mg tablet 10 mg PO BEDTIME metformin 500 mg tablet 500 mg PO BID atorvastatin 10 mg tablet 10 mg PO DAILY lamotrigine 25 mg tablet 25 mg PO DAILY pantoprazole 40 mg tablet,delayed release (DR/EC) 40 mg PO DAILY@0630 trazodone 150 mg tablet 150 mg PO BEDTIME buspirone 10 mg tablet 10 mg PO BID benztropine 1 mg tablet 1 mg PO BID fluticasone propion-salmeterol [Advair Diskus] 100-50 mcg/dose blister with device 1 ea inhalation BID mirtazapine 7.5 mg tablet 7.5 mg PO BEDTIME Interventions: [place]-Suicide Risk Severity Scale Last Done: 11/16/23 16:30
[2023-11-16 16:28] VITALS: BP 118/82; BP 148/91; PULSE 84; PULSE 91; RESP 20; TEMP 36.3; O2SAT 95; O2SAT 99; BMI 44.9
[2023-11-16 16:53] LABS: MANUAL DIFF FLAG NO
[2023-11-16 16:57] LABS: Appearance Urine Cloudy; Color Urine Dark Yellow; Glucose Urine UA Negative (Negative); Leukocyte Esterase Urine Trace (Negative); Nitrite Urine Negative (Negative); PH 5.5 (5.0-9.0); Specific Gravity - Urine 1.025 (1.005-1.025); UMIC TRIGGER UACC YES; Urine Blood Negative (Negative); Urine Ketones Trace mg/dL (Negative); Urine Protein Negative (Neg-Trace)
[2023-11-16 16:57] LABS: Basophils Percent Auto 0.5 % (0-2); Eosinophils Absolute Auto 0.3 X10*3/uL (0.0-0.4); Eosinophils Percent Auto 3.3 % (0-4); Hematocrit 32.6 % (37.0-47.0); Hemoglobin 10.1 g/dl (12.0-16.0); Imm Gran Abs Auto 0.04 X10*3/uL (0.00-0.03); Imm Gran Pct Auto 0.5 % (0.0-0.4); Lymphocytes Absolute Auto 1.6 X10*3/uL (1.2-4.9); Lymphocytes Percent Auto 18.6 % (20-40); Mean Corpuscular Hemoglobin 26.1 pg (27.0-33.0); Mean Corpuscular Volume 84.2 fL (80.0-98.0); Mean Platelet Volume 9.6 fL (9.4-12.3); Monocytes Absolute Auto 0.7 X10*3/uL (0.1-1.2); Monocytes Percent Auto 7.8 % (2-11); Neutrophils Absolute Auto 6.1 x10*3/uL (2.0-8.3); Neutrophils Percent Auto 69.3 % (45-73); Platelet Count 350 X10*3/uL (160-400); Red Blood Count 3.87 X10*6/uL (4.20-5.50); Red Cell Distribution Width 14.6 % (11.0-16.0); White Blood Count 8.8 X10*3/uL (4.8-10.8)
[2023-11-16 17:03] LABS: Bacteria Urine 2+ (None Seen); Hyaline Casts Urine 0-2 /LPF (0-2); RBC Urine 0-2 /HPF (0-2); Squamous Epithelial Cell Urine >20 /HPF (0-2); UACC Culture Trigger YES
[2023-11-16 17:05] LABS: Amphetamine Screen Urine Not Detected (Not Detect); Barbiturates, Urine Not Detected (Not Detect); Benzodiazepines Screen Urine Not Detected (Not Detect); Cannabinoid Screen Urine Not Detected (Not Detect); Cocaine Screen Urine Not Detected (Not Detect); Fentanyl, urine Not Detected (Not Detect); Opiate Screen Urine Not Detected (Not Detect); Phencyclidine Screen Urine Not Detected (Not Detect)
[2023-11-16 17:12] LABS: COVID-19 Test Negative (Negative); IDNOW Serial# 152EDE1D
[2023-11-16 17:12] LABS: Acetaminophen LAB < 3 mcg/mL (<30); Anion Gap 13 (12-20); Blood Urea Nitrogen 13 mg/dL (9-16); Calcium 9.3 mg/dL (8.4-10.2); Carbon Dioxide 26 mmol/L (22-29); Chloride 102 mmol/L (96-108); Creatinine Clr Calc Pharmacy 95.5; Estimated Glomerular Filt Rate > 60; Ethanol < 10 mg/dL; Glucose Random 101 mg/dL (60-115); Potassium 3.8 mmol/L (3.3-5.1); Salicylate < 5.0 mg/dL (15-30); Sodium 137 mmol/L (135-145)
[2023-11-16 18:24] VITALS: RESP 14
== END 2023-11-16 18:26 | disposition home or self-care (01) ==
PROVIDERS: Emergency Provider Emergency Medicine Emergency Medical Services; PCP Nurse Practitioner Family
DX: F41.0 Panic disorder [episodic paroxysmal anxiety] (principal); R45.851 Suicidal ideations
CPT/HCPCS: 36415; 80048; 80143; 80179; 80307; 81001; 85025; 87086; 87635; 99285

== ENCOUNTER 2023-11-17 18:46 | Inpatient (IN) | payer MEDICARE, MEDICAID, SELFPAY ==
[2023-11-17] VITALS (8 sets, daily range): BP systolic 138–178; BP diastolic 73–108; PULSE 87–130; RESP 15–20; TEMP 37.3; O2SAT 96–98; BMI 39.5
--- NOTE | 2023-11-17 19:14 | ED.GENADULT ---
HPI - General Adult General Chief complaint: Overdose Stated complaint: OD ON TYLENOL PER EMS Time Seen by Provider: 11/17/23 19:12 Source: patient and EMS Mode of arrival: EMS Limitations: no limitations History of Present Illness HPI narrative: Patient is a 47 year old assigned female at with a history of multiple suicide attempts and PTSD presenting to the emergency department today after attempting to kill herself ingesting 50 caplets of 500mg tylenol. Patient states that she has been having more stressors and took an entire bottle (50 capsules) of 500mg Tylenol. Patient denies any dizziness, lightheadedness, abdominal pain, nausea, vomiting, fever, chills, blurry vision, double vision, loss of vision, chest pain, difficulty breathing, shortness of breath, back pain, night sweats, pain with urination, increased urinary frequency, increased urinary urgency, blood in her urine or stool, syncope or a near syncopal episode, recent trauma or falls, bowel incontinence, bladder incontinence, bowel retention, bladder retention, or any other complaints at this time. Onset (ago): minute(s) (30) Relieving factors: none Exacerbating factors: none Associated symptoms: denies other symptoms Treatments prior to arrival: none Related Data Home Medications Medication Instructions Recorded Confirmed fluoxetine 40 mg capsule 80 mg PO DAILY 08/25/23 10/13/23 lorazepam 0.5 mg tablet 0.5 mg PO DAILY PRN Anxiety 08/31/23 10/28/23 albuterol sulfate 90 mcg/actuation 2 inh inhalation Q4H PRN Shortness 09/17/23 10/28/23 aerosol inhaler (Ventolin HFA) Of Breath Or Wheezing famotidine 10 mg tablet 10 mg PO BID@0630,1630 09/17/23 10/13/23 fluphenazine HCl 5 mg tablet 5 mg PO BID 09/17/23 10/13/23 montelukast 10 mg tablet 10 mg PO BEDTIME 09/17/23 10/28/23 atorvastatin 10 mg tablet 10 mg PO DAILY 10/04/23 10/28/23 benztropine 1 mg tablet 1 mg PO BID 10/04/23 10/28/23 buspirone 10 mg tablet 10 mg PO BID 10/04/23 10/13/23 fluticasone 100 mcg-salmeterol 50 1 ea inhalation BID 10/04/23 10/13/23 mcg/dose blistr powdr for inhalation (Advair Diskus) lamotrigine 25 mg tablet 25 mg PO DAILY 10/04/23 10/13/23 metformin 500 mg tablet 500 mg PO BID 10/04/23 10/13/23 mirtazapine 7.5 mg tablet 7.5 mg PO BEDTIME 10/04/23 10/13/23 pantoprazole 40 mg tablet,delayed 40 mg PO DAILY@0630 10/04/23 10/13/23 release trazodone 150 mg tablet 150 mg PO BEDTIME 10/04/23 10/28/23 Previous Rx's Medication Instructions Recorded nitrofurantoin 100 mg PO BID 5 days #10 caps 10/25/23 monohydrate/macrocrystals 100 mg capsule (Macrobid) Allergies Allergy/AdvReac Type Severity Reaction Status Date / Time azithromycin [AZITHROMYCIN] Allergy Severe Rash Verified 11/09/23 18:02 Fish Containing Products Allergy Severe Anaphylaxis Verified 11/09/23 18:02 codeine [Codeine] Allergy Intermediate Rash Verified 11/09/23 18:02 Penicillins Allergy Intermediate Rash Verified 11/09/23 18:02 prednisone [Prednisone] Allergy Intermediate Rash Verified 11/09/23 18:02 Sulfa (Sulfonamide Allergy Intermediate Rash Verified 11/09/23 18:02 Antibiotics) [Sulfa (Sulfonamides)] ziprasidone [From Geodon] Allergy Intermediate dysuria, Verified 11/09/23 18:02 rash Review of Systems Constitutional: Constitutional: Reports no additional constitutional complaints, Denies chills, Denies fever(s) and Denies night sweats Eyes: Eyes: Reports no additional eye complaints, Denies blurry vision, Denies change in vision, Denies diplopia, Denies eye discharge, Denies loss of vision and Denies eye pain ENT: Denies dizziness Cardiovascular: Cardiovascular: Reports no additional cardiovascular complaints, Denies chest pain, Denies lightheadedness, Denies Loss of Consciousness and Denies dyspnea Respiratory: Respiratory: Reports no additional respiratory complaints and Denies dyspnea Gastrointestinal: Gastrointestinal: Reports no additional gastrointestinal complaints, Denies abdominal pain, Denies melena, Denies hematochezia, Denies change in bowel habits and Denies change in stool character Genitourinary: Genitourinary: Denies hematuria, Denies urinary frequency, Denies dysuria, Denies urinary incontinence, Denies urinary hesitancy and Denies urinary urgency Musculoskeletal: Musculoskeletal: Reports no additional musculoskeletal complaints, Denies numbness and Denies tingling Neurologic: Denies dizziness, Denies loss of vision, Denies numbness and Denies tingling Psychiatric: Psychiatric: Reports no additional psychiatric complaints Endocrine: Endocrine: Reports no additional endocrine complaints Hematologic/Lymphatic: Hematologic/Lymphatic: Reports no additional hematologic/lymphatic complaints Allergic/Immunologic: Allergic/Immunologic: Reports no additional allergic/immunologic complaints PMFSH Past Medical History Attestation statement: The following information was validated with the patient. Source: old records reviewed and nursing notes reviewed Medical History Suicidal ideation MDD (major depressive disorder), recurrent episode, severe Chest pain Acute anxiety COVID-19 Full body hives Major depression Dizziness Suicide attempt UTI (urinary tract infection) Acetaminophen overdose COVID History of attempted suicide History of non-suicidal self-harm Hypomagnesemia Suicide attempt Suicide attempt by acetaminophen overdose Acetaminophen overdose Depression Diabetes type 2, controlled Borderline personality disorder PTSD (post-traumatic stress disorder) Overdose GERD (gastroesophageal reflux disease) Mood disorder Hyperlipidemia Bronchitis Social History Social History Household Members: Other Household Members Other:: Detention Housing: Other Housing Other:: Detention Do you presently have visiting nurse or other home services: Yes Unable to assess alcohol history related to: Unknown Alcohol intake: current Alcohol intake frequency: does not drink Comment: 1:1 sitter Patient Tobacco Use Status: Former Tobacco user Quit Date: NA Tobacco use type: Cigarette Cigarette Packs Per Day: 1 Cigarettes Per Day: 20.0 Years Smoked: 22 Smoked in Last 30 Days: No e-Cigarette/Vaping Use: Currently Using Second Hand Smoke Exposure: No Substance Use Type: Marijuana Advance Directives: No Advance Directives Information Provided: No service: No Current occupational status: unemployed and disabled Sexual orientation: Straight/Heterosexual Physical Exam ED Vital Signs: Vital Signs - 24 hr 11/17/23 19:06 11/17/23 20:51 Temperature 99.2 F Pulse Rate 106 H Pulse Rate [Monitor] 100 Respiratory Rate 18 Blood Pressure 146/73 H Pulse Oximetry 98 Oxygen Delivery Method Room Air BMI result Body Mass Index 39.5 Const General: cooperative, no acute distress, alert and awake Nutritional Appearance: well nourished Orientation/consciousness: patient oriented x3 Limitations: no limitations HENMT Head: Yes normal to inspection and Yes atraumatic Ears: hearing grossly normal bilaterally and external ears normal General nose exam: Normal external nose present, no nasal discharge noted and no epistaxis Face and sinus: Yes normal facial exam, No abrasion and No laceration Mouth: Normal oral and palatal mucosa present, no drooling and no muffled voice Eyes General: appearance normal, both eyes and all related structures Periorbital: periorbital findings normal Eyelids: Yes eyelids normal Conjunctivae: conjunctivae normal Pupils: Equal, round and reactive pupils present EOM: EOMs intact bilaterally Neck Neck: Yes normal visual inspection, Yes full ROM and Yes no lymphadenopathy Chest Chest palpation & inspection: normal inspection of the chest Resp Effort & Inspection: normal respiratory effort and able to speak in complete sentences GI Inspection: Yes normal to inspection Palpation (GI): Soft to palpation, not firm, nontender, no guarding and not rigid Neuro General: patient oriented x3 and moves all extremities Cranial nerves: Yes Equal, round and reactive pupils present Cognition (Neuro): normal cognition Motor exam (neuro): 5/5 motor strength present throughout Sensory Exam: Normal double simultaneous stimulation for sensation Coordination: [id number] test normal Extrem General: Yes normal to inspection, Yes full ROM and Yes capillary refill normal Psych Appearance: grossly normal Mental Status: mental status grossly normal Affect: normal affect Attitude: cooperative Thought process: Normal thought process present Thought content: Normal thought content present Insight: Good insight present (Psych) Medications Administered Discontinued Medications Generic Name Dose Route Start Last Admin Trade Name Elmer PRN Reason Stop Dose Admin Charcoal 50 gm 11/17/23 19:15 11/17/23 19:34 Activated Charcoal 50 Gm/240 Ml Oral.Susp PO 11/17/23 19:16 50 gm ONCE ONE Administration Acetylcysteine 15,000 mg/ 275 mls @ 275 mls/hr 11/17/23 19:26 11/17/23 20:33 Dextrose IV 11/17/23 20:25 275 mls/hr ONCE ONE Administration Medical Decision Making Medical Decision Making MDM Narrative: Patient is a 47 year old assigned female at with a history of multiple suicide attempts and PTSD presenting to the emergency department today after an attempted suicide via overdosing on tylenol. Patient's physical exam was unremarkable. Patient's blood work showed an elevated tylenol level of 89. Patient's EKG was unremarkable. I spoke to poison control who recommended repeating CBC, CMP, Mag, Tylenol, and EKG in 4 hours and that they'd call to follow up. Charcoal and NAC ordered and given. I spoke to the geophysics professor who agreed to admission. I explained my physical exam findings as well as all test results to the patient. I answered all questions asked by the patient. Patient verbalized agreement and understanding with this treatment plan and admission. Differential Diagnosis Differential Diagnoses: The differential diagnosis associated with the presentation includes Intentional overdose Tylenol overdose Suicide attempt Admission/Observation Consideration of admission/observation: Escalation of care including admission/observation considered Patient admitted to the ICU Consult Healthcare Provider Management of the patient was discussed with: Aviation Neuropsychologist (spoke to the geophysics professor and poison control as noted in the MDM Rationale portion of this note.) Lab Data [facility] Lab Attestation statement: I reviewed the patient's lab results. My interpretation of these results are in the MDM Rationale portion of this note. 11/17/23 19:48 11/17/23 19:48 Labs: Lab Results 11/17/23 11/17/23 Range/Units 19:48 19:49 WBC 7.2 (4.8-10.8) X10*3/uL RBC 3.52 L (4.20-5.50) X10*6/uL Hgb 9.4 L (12.0-16.0) g/dl Hct 29.4 L (37.0-47.0) % MCV 83.5 (80.0-98.0) fL MCH 26.7 L (27.0-33.0) pg MCHC 32.0 (31.0-35.0) g/dl RDW 14.7 (11.0-16.0) % Plt Count 284 (160-400) X10*3/uL MPV 10.4 (9.4-12.3) fL Immature Gran % (Auto) 0.6 H (0.0-0.4) % Neut % (Auto) 66.7 (45-73) % Lymph % (Auto) 20.8 (20-40) % Jones % (Auto) 8.2 (2-11) % Eos % (Auto) 3.3 (0-4) % Baso % (Auto) 0.4 (0-2) % Lymph # (Auto) 1.5 (1.2-4.9) X10*3/uL Jones # (Auto) 0.6 (0.1-1.2) X10*3/uL Eos # (Auto) 0.2 (0.0-0.4) X10*3/uL Baso # (Auto) 0.0 (0.0-0.2) X10*3/uL Abs Immat Gran (auto) 0.04 H (0.00-0.03) X10*3/uL Absolute Neuts (auto) 4.8 (2.0-8.3) x10*3/uL Absolute Nucleated RBC 0.000 (0.0-0.012) X10*3/uL Nucleated RBC % (auto) 0.0 (0.0-0.2) /100WBC Smear Tech's Comments VERIFIED Sodium 140 (135-145) mmol/L Potassium 4.8 D (3.3-5.1) mmol/L Chloride 107 (96-108) mmol/L Carbon Dioxide 23 (22-29) mmol/L Anion Gap 15 (12-20) BUN 12 (9-16) mg/dL Creatinine 0.95 (0.5-1.4) mg/dL Estim Creat Clear Calc 88.0 Estimated GFR > 60 Random Glucose 102 (60-115) mg/dL Calcium 8.7 D (8.4-10.2) mg/dL Total Bilirubin 0.1 (0.0-1.0) mg/dL AST 38 H (5-31) U/L ALT 14 (0-31) U/L Alkaline Phosphatase 97 (39-117) U/L Total Protein 7.2 (6.5-8.0) g/dL Albumin 4.0 (3.5-5.0) g/dL Salicylates < 5.0 L (15-30) mg/dL Urine Opiates Screen Not Detected (Not Detect) Urine Fentanyl Screen Not Detected (Not Detect) Acetaminophen 89 H* (<30) mcg/mL Ur Barbiturates Screen Not Detected (Not Detect) Ur Phencyclidine Scrn Not Detected (Not Detect) Ur Amphetamines Screen Not Detected (Not Detect) U Benzodiazepines Scrn Not Detected (Not Detect) Urine Cocaine Screen Not Detected (Not Detect) U Marijuana (THC) Screen Not Detected (Not Detect) Ethyl Alcohol < 10 mg/dL COVID-19 (NICK) Negative (Negative) COVID-19 Clin Com See Note Independent Interpretation I performed an independent interpretation of an: EKG Interpretation: Vent. Rate: 101 BPM Atrial Rate: 101 BPM P-R Int: 178 ms QRS Dur: 084 ms QT Int: 352 ms P-R-T Axes: 055 044 058 degrees QTc Int: 456 ms Sinus tachycardia Otherwise normal ECG 11/17/231931 Independent Historian Clinical information obtained from an independent historian. History obtained from or confirmed by: EMS (EMS provided additional history and confirmed the history provided by the patient.) Critical Care Time Critical Care Time Critical Care Time: Yes Total Critical Care Time: 45 Attestation: I spent 45 minutes of Critical Care Time with this patient. This does not include time spent on separately reported billable procedures. Discharge Plan Discharge Clinical Impression: Overdose on Tylenol, Suicide attempt Patient Disposition: Admitted As Inpatient Prescriptions: No Action fluoxetine 40 mg capsule 80 mg PO DAILY lorazepam 0.5 mg tablet 0.5 mg PO DAILY PRN (Reason: Anxiety) nitrofurantoin monohyd/m-cryst [Macrobid] 100 mg capsule 100 mg PO BID 5 Days Qty: 10 0RF Rx Instructions: must administer with a meal/food famotidine 10 mg Tablet 10 mg PO BID@0630,1630 fluphenazine HCl 5 mg tablet 5 mg PO BID albuterol sulfate [Ventolin HFA] 90 mcg/actuation HFA aerosol inhaler 2 inh inhalation Q4H PRN (Reason: Shortness Of Breath Or Wheezing) montelukast 10 mg tablet 10 mg PO BEDTIME metformin 500 mg tablet 500 mg PO BID atorvastatin 10 mg tablet 10 mg PO DAILY lamotrigine 25 mg tablet 25 mg PO DAILY pantoprazole 40 mg tablet,delayed release (DR/EC) 40 mg PO DAILY@0630 trazodone 150 mg tablet 150 mg PO BEDTIME buspirone 10 mg tablet 10 mg PO BID benztropine 1 mg tablet 1 mg PO BID fluticasone propion-salmeterol [Advair Diskus] 100-50 mcg/dose blister with device 1 ea inhalation BID mirtazapine 7.5 mg tablet 7.5 mg PO BEDTIME
--- NOTE | 2023-11-17 19:28 | ECG_ITS ---
Test Reason : OD Blood Pressure : / mmHG Vent. Rate : 101 BPM Atrial Rate : 101 BPM P-R Int : 178 ms QRS Dur : 084 ms QT Int : 352 ms P-R-T Axes : 055 044 058 degrees QTc Int : 456 ms Sinus tachycardia Otherwise normal ECG When compared with ECG of 13-OCT-2023 22:28, No significant change was found Referred By: Nicki Schreiber Electronically Signed By:DONALD HOOKER MD
[2023-11-17] MEDS: Activated charcoaL 50 GM/240 ML ORAL.SUSP PO (19:34)
--- NOTE | 2023-11-17 19:45 | PC.NURSE ---
Addendum entered by Maged Jimenez 11/17/23 20:50: 1:1 sitter. Original Note: on pt arrival changed over belongings to [facility]. iv established labs drawn ekg obtained. poison control notified by yvon marshall rn. pt drank and tolerated po charcoal. pharmacy called for iv acetylcysteine.
[2023-11-17 20:04] LABS: Basophils Percent Auto 0.4 % (0-2); Eosinophils Absolute Auto 0.2 X10*3/uL (0.0-0.4); Eosinophils Percent Auto 3.3 % (0-4); Hematocrit 29.4 % (37.0-47.0); Hemoglobin 9.4 g/dl (12.0-16.0); Imm Gran Abs Auto 0.04 X10*3/uL (0.00-0.03); Imm Gran Pct Auto 0.6 % (0.0-0.4); Lymphocytes Absolute Auto 1.5 X10*3/uL (1.2-4.9); Lymphocytes Percent Auto 20.8 % (20-40); MANUAL DIFF FLAG SCAN; Mean Corpuscular Hemoglobin 26.7 pg (27.0-33.0); Mean Corpuscular Volume 83.5 fL (80.0-98.0); Mean Platelet Volume 10.4 fL (9.4-12.3); Monocytes Absolute Auto 0.6 X10*3/uL (0.1-1.2); Monocytes Percent Auto 8.2 % (2-11); Neutrophils Absolute Auto 4.8 x10*3/uL (2.0-8.3); Neutrophils Percent Auto 66.7 % (45-73); PLT CLUMP 1; Platelet Count 284 X10*3/uL (160-400); Red Blood Count 3.52 X10*6/uL (4.20-5.50); Red Cell Distribution Width 14.7 % (11.0-16.0); SCAN SMEAR FLAG 1; White Blood Count 7.2 X10*3/uL (4.8-10.8)
[2023-11-17 20:20] LABS: Alanine Aminotransferase 14 U/L (0-31); Alkaline Phosphatase 97 U/L (39-117); Anion Gap 15 (12-20); Aspartate Amino Transferase 38 U/L (5-31); Bilirubin Total 0.1 mg/dL (0.0-1.0); Blood Urea Nitrogen 12 mg/dL (9-16); Calcium 8.7 mg/dL (8.4-10.2); Carbon Dioxide 23 mmol/L (22-29); Chloride 107 mmol/L (96-108); Estimated Glomerular Filt Rate > 60; Ethanol < 10 mg/dL; Glucose Random 102 mg/dL (60-115); Potassium 4.8 mmol/L (3.3-5.1); Sodium 140 mmol/L (135-145); Total Protein 7.2 g/dL (6.5-8.0)
[2023-11-17 20:21] LABS: SLIDE REVIEW VERIFIED
[2023-11-17 20:29] LABS: Amphetamine Screen Urine Not Detected (Not Detect); Barbiturates, Urine Not Detected (Not Detect); Benzodiazepines Screen Urine Not Detected (Not Detect); Cannabinoid Screen Urine Not Detected (Not Detect); Cocaine Screen Urine Not Detected (Not Detect); Fentanyl, urine Not Detected (Not Detect); Opiate Screen Urine Not Detected (Not Detect); Phencyclidine Screen Urine Not Detected (Not Detect)
[2023-11-17] MEDS: Acetylcysteine 15,000 MG in Dextrose 5 % 200 ML 275 MG IV (20:33)
--- NOTE | 2023-11-17 20:33 | PC.NURSE ---
pt medicated per mar.
[2023-11-17 20:34] LABS: Acetaminophen LAB 89 mcg/mL (<30); Salicylate < 5.0 mg/dL (15-30)
[2023-11-17 20:52] LABS: COVID-19 Test Negative (Negative); IDNOW Serial# 152EDE1D
[2023-11-17 21:19] LABS: Appearance Urine Clear; Color Urine Yellow; Glucose Urine UA Negative (Negative); Leukocyte Esterase Urine Negative (Negative); Nitrite Urine Negative (Negative); Specific Gravity - Urine 1.015 (1.005-1.025); Urine Blood Negative (Negative); Urine Ketones Trace mg/dL (Negative); Urine Protein Negative (Neg-Trace)
[2023-11-17 21:20] LABS: UPreg QC Valid YES; Urine Pregnancy NEGATIVE (NEGATIVE)
--- NOTE | 2023-11-17 21:21 | PC.NURSE ---
spoke to poison control repeat labs entered. sallie mandujano notified.
[2023-11-17 21:44] LABS: Lipase 13 U/L (8-78)
[2023-11-17] MEDS: Acetylcysteine 5,000 MG in Dextrose 5 % 500 ML 131.25 MG IV (21:50)
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
[2023-11-17 22:14] LABS: Prothrombin Time 12.3 SEC (11.1-13.3)
[2023-11-17 22:17] LABS: Partial Thromboplastin Time 33.5 SEC (26.0-36.8)
[2023-11-17] MEDS: ondansetron HCL 4 MG/2 ML VIAL IVPUSH (22:43)
[2023-11-17 23:28] LABS: Appearance Urine Clear; Color Urine Yellow; Glucose Urine UA Negative (Negative); Leukocyte Esterase Urine Negative (Negative); Nitrite Urine Negative (Negative); PH 5.5 (5.0-9.0); Specific Gravity - Urine 1.015 (1.005-1.025); Urine Blood Negative (Negative); Urine Ketones >=160 mg/dL (Negative); Urine Protein Negative (Neg-Trace)
[2023-11-18] VITALS (15 sets, daily range): BP systolic 111–154; BP diastolic 59–93; PULSE 67–95; RESP 12–20; TEMP 36.1–36.7; O2SAT 96–99; BMI 38.1
[2023-11-18 00:37] LABS: Alanine Aminotransferase 9 U/L (0-31); Albumin Level 3.6 g/dL (3.5-5.0); Alkaline Phosphatase 76 U/L (39-117); Anion Gap 14 (12-20); Aspartate Amino Transferase 11 U/L (5-31); Bilirubin Total 0.1 mg/dL (0.0-1.0); Blood Urea Nitrogen 10 mg/dL (9-16); Calcium 8.3 mg/dL (8.4-10.2); Carbon Dioxide 23 mmol/L (22-29); Chloride 109 mmol/L (96-108); Creatinine Clr Calc Pharmacy 93.9; Estimated Glomerular Filt Rate > 60; Glucose Random 143 mg/dL (60-115); Potassium 3.6 mmol/L (3.3-5.1); Sodium 142 mmol/L (135-145); Total Protein 5.9 g/dL (6.5-8.0)
[2023-11-18 00:52] LABS: Acetaminophen LAB 117 mcg/mL (<30); Salicylate < 5.0 mg/dL (15-30)
[2023-11-18] MEDS: Acetylcysteine 10,000 MG in Dextrose 5 % 1,000 ML 65.63 MG IV (01:52)
[2023-11-18] MEDS: Nitrofurantoin Monohyd/M-Cryst 100 MG CAPSULE PO ×2 (02:27→21:06)
[2023-11-18 05:02] LABS: INTERNATIONAL NORM RATIO 1.2 (0.9-1.1); Prothrombin Time 14.1 SEC (11.1-13.3)
[2023-11-18 05:19] LABS: Acetaminophen LAB 95 mcg/mL (<30); Salicylate < 5.0 mg/dL (15-30)
[2023-11-18] MEDS: Omeprazole 20 MG CAPSULE.DR PO (06:19)
[2023-11-18 07:48] LABS: Glucose, Whole Blood 105 mg/dL (60-115)
--- NOTE | 2023-11-18 08:38 | PHA.MEDREC ---
Pharmacy Consult ? Medication Reconciliation Pharmacy has completed the medication reconciliation. Added lisinopril, removed lamictal. Spoke to pt in ICU. Martin
--- NOTE | 2023-11-18 08:38 | PM.CCPN ---
Subjective Subjective Date of Service: 11/18/23 Interval History: admitted to ICU overnight d/t acetaminophen overdose Critical Care Time (minutes): 60 Physical Exam Vital Signs: Vital Signs: Last Vital Signs Temp 97.0 F 11/18/23 08:00 Pulse 70 11/18/23 08:00 Resp 13 11/18/23 08:00 BP 147/82 H 11/18/23 08:00 Pulse Ox 97 11/18/23 08:00 O2 Del Method Room Air 11/18/23 08:00 O2 Flow Rate 0 11/18/23 05:00 BMI result Body Mass Index 38.1 Const: General: cooperative, comfortable, no acute distress, well developed, alert, awake and Physically active Orientation/consciousness: patient oriented x3 HEENT: Head: Yes normal to inspection, Yes normocephalic and Yes atraumatic Eyes: General: appearance normal, both eyes and all related structures Neck: Neck: Yes normal visual inspection, Yes no meningeal signs and Yes supple Chest: Chest palpation & inspection: normal inspection of the chest Resp: Other: no appreciable rales, rhonchi, wheezing Effort & Inspection: normal respiratory effort Cardio: Rate: regular rate Rhythm: regular rhythm GI: Inspection: Yes normal to inspection, No Abdominal wall edema and No distended Palpation (GI): Soft to palpation, not firm, nontender, no guarding and not rigid Skin: General skin exam: no rashes or lesions noted Neuro: General: patient oriented x3, tone normal, moves all extremities, no meningeal signs and no focal motor deficits Extrem: General: Yes normal to inspection, Yes capillary refill normal and Yes no clubbing, cyanosis or edema Psych: Other: appropriate to circumstance Objective Data Labs 11/17/23 19:48 11/18/23 00:10 Labs: Laboratory Results - last 24 hr 11/17/23 11/17/23 11/17/23 19:48 19:49 21:54 WBC 7.2 RBC 3.52 L Hgb 9.4 L Hct 29.4 L MCV 83.5 MCH 26.7 L MCHC 32.0 RDW 14.7 Plt Count 284 MPV 10.4 Immature Gran % (Auto) 0.6 H Neut % (Auto) 66.7 Lymph % (Auto) 20.8 [place] % (Auto) 8.2 Eos % (Auto) 3.3 Baso % (Auto) 0.4 Lymph # (Auto) 1.5 [place] # (Auto) 0.6 Eos # (Auto) 0.2 Baso # (Auto) 0.0 Abs Immat Gran (auto) 0.04 H Absolute Neuts (auto) 4.8 Absolute Nucleated RBC 0.000 Nucleated RBC % (auto) 0.0 Smear Tech's Comments VERIFIED PT 12.3 INR 1.0 APTT 33.5 Sodium 140 Potassium 4.8 D Chloride 107 Carbon Dioxide 23 Anion Gap 15 BUN 12 Creatinine 0.95 Estim Creat Clear Calc 88.0 Estimated GFR > 60 POC Glucose Random Glucose 102 Calcium 8.7 D Total Bilirubin 0.1 AST 38 H ALT 14 Alkaline Phosphatase 97 Total Protein 7.2 Albumin 4.0 Lipase 13 Urine Color Yellow Urine Appearance Clear Urine pH 6.0 Ur Specific [place] 1.015 Urine Protein Negative Urine Glucose (UA) Negative Urine Ketones Trace Urine Blood Negative Urine Nitrite Negative Ur Leukocyte Esterase Negative Urine Test NEGATIVE Salicylates < 5.0 L Urine Opiates Screen Not Detected Urine Fentanyl Screen Not Detected Acetaminophen 89 H* Ur Barbiturates Screen Not Detected Ur Phencyclidine Scrn Not Detected Ur Amphetamines Screen Not Detected U Benzodiazepines Scrn Not Detected Urine Cocaine Screen Not Detected U Marijuana (THC) Screen Not Detected Ethyl Alcohol < 10 COVID-19 (NICK) Negative COVID-19 Clin Com See Note 11/17/23 11/18/23 11/18/23 22:46 00:10 00:24 WBC RBC Hgb Hct MCV MCH MCHC RDW Plt Count MPV Immature Gran % (Auto) Neut % (Auto) Lymph % (Auto) [place] % (Auto) Eos % (Auto) Baso % (Auto) Lymph # (Auto) [place] # (Auto) Eos # (Auto) Baso # (Auto) Abs Immat Gran (auto) Absolute Neuts (auto) Absolute Nucleated RBC Nucleated RBC % (auto) Smear Tech's Comments PT INR APTT Sodium 142 Potassium 3.6 D Chloride 109 H Carbon Dioxide 23 Anion Gap 14 BUN 10 Creatinine 0.89 Estim Creat Clear Calc 93.9 Estimated GFR > 60 POC Glucose Random Glucose 143 H Calcium 8.3 L Total Bilirubin 0.1 AST 11 ALT 9 Alkaline Phosphatase 76 Total Protein 5.9 L Albumin 3.6 Lipase Urine Color Yellow Urine Appearance Clear Urine pH 5.5 Ur Specific [place] 1.015 Urine Protein Negative Urine Glucose (UA) Negative Urine Ketones >=160 Urine Blood Negative Urine Nitrite Negative Ur Leukocyte Esterase Negative Urine Test Salicylates < 5.0 L Urine Opiates Screen Urine Fentanyl Screen Acetaminophen 117 H* Ur Barbiturates Screen Ur Phencyclidine Scrn Ur Amphetamines Screen U Benzodiazepines Scrn Urine Cocaine Screen U Marijuana (THC) Screen Ethyl Alcohol COVID-19 ([facility]ICK) COVID-19 Clin Com 11/18/23 11/18/23 04:38 07:45 WBC RBC Hgb Hct MCV MCH MCHC RDW Plt Count MPV Immature Gran % (Auto) Neut % (Auto) Lymph % (Auto) [place] % (Auto) Eos % (Auto) Baso % (Auto) Lymph # (Auto) [place] # (Auto) Eos # (Auto) Baso # (Auto) Abs Immat Gran (auto) Absolute Neuts (auto) Absolute Nucleated RBC Nucleated RBC % (auto) Smear Tech's Comments PT 14.1 H INR 1.2 H APTT Sodium Potassium Chloride Carbon Dioxide Anion Gap BUN Creatinine Estim Creat Clear Calc Estimated GFR POC Glucose 105 Random Glucose Calcium Total Bilirubin AST ALT Alkaline Phosphatase Total Protein Albumin Lipase Urine Color Urine Appearance Urine pH Ur Specific [place] Urine Protein Urine Glucose (UA) Urine Ketones Urine Blood Urine Nitrite Ur Leukocyte Esterase Urine Test Salicylates < 5.0 L Urine Opiates Screen Urine Fentanyl Screen Acetaminophen 95 H* Ur Barbiturates Screen Ur Phencyclidine Scrn Ur Amphetamines Screen U Benzodiazepines Scrn Urine Cocaine Screen U Marijuana (THC) Screen Ethyl Alcohol COVID-19 (NICK) COVID-19 Clin Com Progress Note: A&P Assessment and plan (1) Suicide attempt by acetaminophen overdose: Status: Acute (2) PTSD (post-traumatic stress disorder): Status: Acute (3) Diabetes type 2, controlled: Status: Acute (4) Borderline personality disorder: Status: Acute Plan Patient is a 47 Y F w/ extensive psychiatry comorbidites including anxiety/depression/PTSD c/b multiple prior intentional acetaminophen overdoses, presenting on 11/17 s/p intentional overdose of reportedly 25,000 mg acetaminophen at 18:30 on 11/17, found to have elevated acetaminophen level, though normal synthetic function, started on n-acetylcysteine N: no acute issues CV: hemodynamically stable; no acute issues R: no acute issues GI: acetaminophen overdose, on n-acetylcysteine treatment; to continue n-acetylcysteine until acetaminophen level < 10 mcg/mL : no acute issues H: no acute issues ID: no acute issues E: non-insulin dependent diabetes mellitus; to monitor glucose P: extensive; to continue 1:1 sitter; psychiatry consult Quality Stroke Does the patient have a stroke diagnosis?: No VTE Prior VTE?: No VTE Risk Level:: Medical - moderate - high VTE Device Contraindication: N/A - Device Ordered VTE Drug Contraindication: Treatment Not Tolerated
[2023-11-18 08:48] LABS: MANUAL DIFF FLAG NO
[2023-11-18 08:51] LABS: Basophils Percent Auto 0.5 % (0-2); Eosinophils Absolute Auto 0.2 X10*3/uL (0.0-0.4); Eosinophils Percent Auto 4.2 % (0-4); Hematocrit 31.3 % (37.0-47.0); Hemoglobin 9.8 g/dl (12.0-16.0); Imm Gran Abs Auto 0.02 X10*3/uL (0.00-0.03); Imm Gran Pct Auto 0.3 % (0.0-0.4); Lymphocytes Absolute Auto 1.5 X10*3/uL (1.2-4.9); Lymphocytes Percent Auto 26.7 % (20-40); Mean Corpuscular HGB Conc 31.3 g/dl (31.0-35.0); Mean Corpuscular Hemoglobin 26.4 pg (27.0-33.0); Mean Corpuscular Volume 84.4 fL (80.0-98.0); Mean Platelet Volume 9.6 fL (9.4-12.3); Monocytes Absolute Auto 0.6 X10*3/uL (0.1-1.2); Neutrophils Absolute Auto 3.3 x10*3/uL (2.0-8.3); Neutrophils Percent Auto 57.3 % (45-73); Platelet Count 282 X10*3/uL (160-400); Red Blood Count 3.71 X10*6/uL (4.20-5.50); Red Cell Distribution Width 14.2 % (11.0-16.0); White Blood Count 5.7 X10*3/uL (4.8-10.8)
[2023-11-18 08:56] LABS: INTERNATIONAL NORM RATIO 1.2 (0.9-1.1); Prothrombin Time 14.5 SEC (11.1-13.3)
[2023-11-18 09:07] LABS: Alanine Aminotransferase 10 U/L (0-31); Albumin Level 3.6 g/dL (3.5-5.0); Alkaline Phosphatase 72 U/L (39-117); Anion Gap 13 (12-20); Aspartate Amino Transferase 12 U/L (5-31); Bilirubin Total 0.2 mg/dL (0.0-1.0); Blood Urea Nitrogen 11 mg/dL (9-16); Calcium 8.2 mg/dL (8.4-10.2); Carbon Dioxide 22 mmol/L (22-29); Chloride 107 mmol/L (96-108); Creatinine Clr Calc Pharmacy 98.8; Estimated Glomerular Filt Rate > 60; Glucose Random 107 mg/dL (60-115); Potassium 3.2 mmol/L (3.3-5.1); Sodium 139 mmol/L (135-145); Total Protein 5.8 g/dL (6.5-8.0)
[2023-11-18 09:21] LABS: Acetaminophen LAB 50 mcg/mL (<30); Salicylate < 5.0 mg/dL (15-30)
[2023-11-18] MEDS: Potassium Chloride ER 20 MEQ TAB.ER.PRT PO (10:27)
[2023-11-18] MEDS: LORazepam 0.5 MG TABLET PO ×3 (10:57→19:17)
[2023-11-18 11:34] LABS: Glucose, Whole Blood 146 mg/dL (60-115)
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
--- NOTE | 2023-11-18 12:45 | MHC.CM.PN ---
IMM ADDRESSED WITH PT AT BEDSIDE IN ICU. PT HAS 1:1 SITTER FOR SI. PT ABLE TO PARTICIPATE IN ASSESSMENT. PT LIVES IN A [facility] AND IS INDEPENDENT AT BASELINE WITH MOBILITY. PT GIVES CM PERMISSION TO SPEAK WITH [facility] IF NEEDED( [facility] BOB [phone]) NO HCP, PT DECLINES AT THIS TIME. PCP JASON ARREOLA. DP: RETURN TO [facility] AT DC. PT UNSURE IF WILL PROVIDE TRANSPORT HOME. CM WILL CONFIRM PLAN ON DC. CM WILL CONTINUE TO FOLLOW FOR ANY CHANGES IN DC PLAN/NEEDS.
[2023-11-18] MEDS: lisinopriL 5 MG TABLET PO (12:50)
[2023-11-18 12:55] LABS: Glucose, Whole Blood 153 mg/dL (60-115)
--- NOTE | 2023-11-18 13:35 | PC.NURSE ---
Safety scan of room performed prior to patient arrival. Patient arrived to floor in hospital bed at approximately 1220. Alert and oriented x4. Reports moderate anxiety, presents with anxious affect and restless behavior. Cooperative with care. Patient changed into behavioral health safe hospital clothing. Both IV sites covered with gauze wrap per patient request to maintain safety. 1:[address] and within arm's reach. Camera in room.
[2023-11-18 13:42] LABS: Acetaminophen LAB 18 mcg/mL (<30)
[2023-11-18] MEDS: fluPHENAZine HCl 5 MG TABLET PO ×2 (14:32→21:06)
--- NOTE | 2023-11-18 14:35 | PC.NURSE ---
Addendum entered by Carlin Duong RN 11/18/23 14:48: PVR of 89mL. Original Note: Patient was due to void by 1800 post rock removal. Approximately 1415- patient voided independently with output of 500mL of clear yellow urine. No c/o pain or discomfort with urination.
[2023-11-18 16:20] LABS: Glucose, Whole Blood 189 mg/dL (60-115)
[2023-11-18] MEDS: Insulin Lispro 100 UNIT/ML 3 ML VIAL SUBCUT (17:20)
[2023-11-18 18:32] LABS: Alanine Aminotransferase 12 U/L (0-31); Albumin Level 3.5 g/dL (3.5-5.0); Alkaline Phosphatase 73 U/L (39-117); Aspartate Amino Transferase 13 U/L (5-31); Bilirubin Direct < 0.2 mg/dL (0.0-0.5); Bilirubin Total 0.2 mg/dL (0.0-1.0)
[2023-11-18 18:34] LABS: INTERNATIONAL NORM RATIO 1.1 (0.9-1.1); Prothrombin Time 13.9 SEC (11.1-13.3)
[2023-11-18 18:47] LABS: Acetaminophen LAB 8 mcg/mL (<30)
--- NOTE | 2023-11-18 19:14 | PC.NURSE ---
Approximately 1850- poison control contacted and given requested lab values related to acetaminophen overdose. Acetaminophen level <10. Poison control advised this RN patient will not need another bag of acetylcysteine. Dr. Jacobsen and pharmacy notified.
[2023-11-18 19:27] LABS: Acetaminophen LAB 7 mcg/mL (<30)
--- NOTE | 2023-11-18 19:49 | PC.NURSE ---
1910- patient became increasingly anxious and attempted to pull out her IV. 1:1 sitter and this RN intervened and provided redirection. This RN provided grounding techniques- patient was receptive. Patient reports hearing voices and states They're telling me to hurt myself. And they're telling me other people are going to hurt me . This RN educated patient on safety and support systems currently in place to help her. Patient expressed verbal understanding.
[2023-11-18 19:59] LABS: Glucose, Whole Blood 117 mg/dL (60-115)
[2023-11-18] MEDS: traZODone HCL 50 MG TABLET 150 MG PO (21:05)
[2023-11-18] MEDS: Benztropine Mesylate 1 MG TABLET PO (21:05)
[2023-11-18] MEDS: Mirtazapine 15 MG TABLET PO (21:05)
[2023-11-18] MEDS: Prazosin HCL 1 MG CAPSULE 4 MG PO (21:06)
[2023-11-18 23:43] LABS: Acetaminophen LAB 4 mcg/mL (<30)
[2023-11-19 03:18] VITALS: BP 112/78; PULSE 74; RESP 18; TEMP 36.6; O2SAT 98
[2023-11-19] MEDS: Omeprazole 20 MG CAPSULE.DR PO (06:16)
[2023-11-19 07:05] VITALS: BP 108/61; PULSE 79; RESP 18; TEMP 36.3; O2SAT 92
[2023-11-19] MEDS: lisinopriL 5 MG TABLET PO (07:40)
[2023-11-19] MEDS: busPIRone HCl 5 MG TABLET 15 MG PO (07:40)
[2023-11-19] MEDS: Nitrofurantoin Monohyd/M-Cryst 100 MG CAPSULE PO ×2 (07:40→19:44)
[2023-11-19] MEDS: Atorvastatin Calcium 10 MG TABLET PO (07:40)
[2023-11-19] MEDS: Benztropine Mesylate 1 MG TABLET PO ×2 (07:40→19:44)
[2023-11-19] MEDS: fluPHENAZine HCl 5 MG TABLET PO ×3 (07:40→19:44)
[2023-11-19] MEDS: FLUoxetine HCl 20 MG CAPSULE 80 MG PO (07:40)
[2023-11-19 07:44] LABS: Glucose, Whole Blood 100 mg/dL (60-115)
[2023-11-19 08:10] LABS: Prothrombin Time 12.2 SEC (11.1-13.3)
--- NOTE | 2023-11-19 09:29 | P.PNIM_ITS ---
Subjective Subjective Date of Service: 11/19/23 Interval History: no complaints Physical Exam 2 Vital Signs: Vital Signs: Last Vital Signs Temp 97.3 F 11/19/23 07:05 Pulse 79 11/19/23 07:05 Resp 18 11/19/23 07:05 BP 108/61 11/19/23 07:05 Pulse Ox 92 11/19/23 07:05 O2 Del Method Room Air 11/19/23 07:05 O2 Flow Rate 0 11/18/23 05:00 BMI result Body Mass Index 38.1 Const: General: cooperative, comfortable, no acute distress, well developed, alert, awake and Physically active Orientation/consciousness: patient oriented x3 HEENT: Head: Yes normal to inspection, Yes normocephalic and Yes atraumatic Eyes: General: appearance normal, both eyes and all related structures Neck: Neck: Yes normal visual inspection, Yes no meningeal signs and Yes supple Chest: Chest palpation & inspection: normal inspection of the chest Resp: Other: no appreciable rales, rhonchi, wheezing Effort & Inspection: normal respiratory effort Cardio: Rate: regular rate Rhythm: regular rhythm GI: Inspection: Yes normal to inspection, No Abdominal wall edema and No distended Palpation (GI): Soft to palpation, not firm, nontender, no guarding and not rigid Skin: General skin exam: no rashes or lesions noted Neuro: General: patient oriented x3, tone normal, moves all extremities, no meningeal signs and no focal motor deficits Extrem: General: Yes normal to inspection, Yes capillary refill normal and Yes no clubbing, cyanosis or edema Psych: Other: appropriate to circumstance Objective Data Active Medications Atorvastatin Calcium (Atorvastatin Calcium 10 Mg Tablet) 10 mg PO DAILY [facility] Last Admin: 11/19/23 07:40 Dose: 10 mg Documented By: NAVI Benztropine Mesylate (Benztropine Mesylate 1 Mg Tablet) 1 mg PO BID [facility] Last Admin: 11/19/23 07:40 Dose: 1 mg Documented By: NAVI Buspirone HCl (Buspirone Hcl 5 Mg Tablet) 15 mg PO DAILY [facility] Last Admin: 11/19/23 07:40 Dose: 15 mg Documented By: NAVI Dextrose (Dextrose 50 % 25 Gm/50 Ml Syringe) 25 gm IVPUSH Q15M PRN; Protocol PRN Reason: per Hypoglycemia Standing Ord. Fluoxetine HCl (Fluoxetine Hcl 20 Mg Capsule) 80 mg PO DAILY [facility] Last Admin: 11/19/23 07:40 Dose: 80 mg Documented By: NAVI Fluphenazine HCl (Fluphenazine Hcl 5 Mg Tablet) 5 mg PO TID [facility] Last Admin: 11/19/23 07:40 Dose: 5 mg Documented By: NAVI Glucose (Glucose Gel 15 Gm Gel..Gram.) 15 gm PO Q15M PRN; Protocol PRN Reason: per Hypoglycemia Standing Ord. Insulin Human Lispro (Insulin Lispro 100 Unit/Ml 3 Ml Vial) 0 unit SUBCUT QIDACHS [facility]; Protocol Last Admin: 11/19/23 07:53 Dose: Not Given Documented By: NAVI Non-Admin Reason: No Insulin Coverage Lisinopril (Lisinopril 5 Mg Tablet) 5 mg PO DAILY [facility]; Protocol Last Admin: 11/19/23 07:40 Dose: 5 mg Documented By: NAVI Lorazepam (Lorazepam 0.5 Mg Tablet) 0.5 mg PO QID PRN PRN Reason: Anxiety Last Admin: 11/18/23 19:17 Dose: 0.5 mg Documented By: DARIAN Mirtazapine (Mirtazapine 15 Mg Tablet) 15 mg PO BEDTIME [facility] Last Admin: 11/18/23 21:05 Dose: 15 mg Documented By: DARIAN Nitrofurantoin Macrocrystals (Nitrofurantoin Monohyd/M-Cryst 100 Mg Capsule) 100 mg PO BID [facility] Last Admin: 11/19/23 07:40 Dose: 100 mg Documented By: NAVI Omeprazole (Omeprazole 20 Mg Capsule.Dr) 20 mg PO DAILY@0630 [facility] Last Admin: 11/19/23 06:16 Dose: 20 mg Documented By: CHARLY Ondansetron HCl (Ondansetron Hcl 4 Mg/2 Ml Vial) 4 mg IVPUSH Q8H PRN PRN Reason: Nausea and Vomiting Last Admin: 11/17/23 22:43 Dose: 4 mg Documented By: MUSA Prazosin HCl (Prazosin Hcl 1 Mg Capsule) 4 mg PO BEDTIME [facility]; Protocol Last Admin: 11/18/23 21:06 Dose: 4 mg Documented By: DARIAN Trazodone HCl (Trazodone Hcl 50 Mg Tablet) 150 mg PO BEDTIME [facility] Last Admin: 11/18/23 21:05 Dose: 150 mg Documented By: DARIAN Labs 11/18/23 08:44 11/18/23 08:44 Labs: Laboratory Results - last 24 hr 11/18/23 11/18/23 11/18/23 11:31 12:51 12:56 Hold Purple Top PT INR POC Glucose 146 H 153 H Total Bilirubin Direct Bilirubin AST ALT Alkaline Phosphatase Total Protein Albumin Acetaminophen 18 11/18/23 11/18/23 11/18/23 16:15 17:45 19:06 Hold Purple Top PT 13.9 H INR 1.1 POC Glucose 189 H Total Bilirubin 0.2 Direct Bilirubin < 0.2 AST 13 ALT 12 Alkaline Phosphatase 73 Total Protein 6.0 L Albumin 3.5 Acetaminophen 8 7 11/18/23 11/18/23 11/19/23 19:48 23:23 07:38 Hold Purple Top PT INR POC Glucose 117 H 100 Total Bilirubin Direct Bilirubin AST ALT Alkaline Phosphatase Total Protein Albumin Acetaminophen 4 11/19/23 07:39 Hold Purple Top SEE NOTE PT 12.2 INR 1.0 POC Glucose Total Bilirubin Direct Bilirubin AST ALT Alkaline Phosphatase Total Protein Albumin Acetaminophen Assessment and Plan (1) Suicide attempt: Status: Acute Plan 47F PMH mood disorder, hld, htn, dm, presented with suicide attempt with tylenol overdose depression with suicide attempt, tylenol overdose s/p nac medically cleared, care team eval dm insulin hld statin htn lisinopril dvt prophylaxis - lovenox full code reason for continued hospitalization:care team eval Quality Stroke Does the patient have a stroke diagnosis?: No VTE Prior VTE?: No VTE Risk Level:: Medical - moderate - high VTE Device Contraindication: N/A - Device Ordered VTE Drug Contraindication: Treatment Not Tolerated
--- NOTE | 2023-11-19 10:23 | P.CDIM_ITS ---
PROVIDER RESPONSE TEXT: To clarify, the appropriate diagnosis supported by the clinical indicators: Obesity Due to excess calories QUERY TEXT: PHYSICIAN'S DOCUMENTATION REQUEST Date of Query: 11/19/2023 10:16 AM EST Patient Name: Lucita Underwood Admit Date: 11/18/2023 Dear Brad Portillo, A review of the medical record indicates additional documentation may be needed. Please review below and update the documentation accordingly. Clinical Indicators: Nursing notes Height and Weight 2/4 - Obese Class II BMI 38.1 100.7kg If possible, please provide an associated diagnosis related to the abnormal BMI, such as: Overweight Obesity Due to excess calories Obesity Due to other cause Specify the other cause Other (explain) Clinically unable to determine (explain) Thank you, Aurea Levine, CCS, CDIS Use of terms such as suspected, likely, concern for, or probable (associated with a specific diagnosi s that is being evaluated, monitored, or treated as if it exists) are acceptable and can be coded in the inpatient se tting, when documented at the time of discharge. Please use your independent medical judgment in providing your response. THIS QUERY IS PART OF THE PERMANENT MEDICAL RECORD
[2023-11-19] MEDS: LORazepam 0.5 MG TABLET PO ×3 (10:30→19:44)
--- NOTE | 2023-11-19 10:39 | MHC.CM.PN ---
EMR reviewed. Per MD rounds patient is medically cleared, pending CARE eval for I/P psych placement. CM will continue to follow.
[2023-11-19 11:17] LABS: Glucose, Whole Blood 127 mg/dL (60-115)
[2023-11-19 15:22] VITALS: BP 161/91; PULSE 99; RESP 18; TEMP 36.6; O2SAT 97
--- NOTE | 2023-11-19 16:24 | MHC.CARE ---
Patient evaluated by the CARE Team, written assessment in, patient care, disposition not reached today. Psychiatry will communicate with outpatient providers regarding plan. MD and RN updated with this information.
[2023-11-19 16:56] LABS: Glucose, Whole Blood 122 mg/dL (60-115)
--- NOTE | 2023-11-19 17:08 | PC.NURSE ---
At 1700 pt was walking in hallway with 1:1 sitter when pt stated she heard voices telling her to hit her head on the floor. Pt then proceeded to get onto floor and bang her head on the floor. Staff sat with patient on the floor and was able to redirect patient quickly. Pt then walked herself to room with staff laughing and smiling. MD Portillo alerted via tiger text and arrived to pts room immediately. At this time pt was calm and cooperative and laughing with staff asking for cheese and coffee. Pt did not sustain any obvious injury, no redness or bumps noted, skin intact. VSS, no new orders at this time.
[2023-11-19 17:24] VITALS: BP 152/82; PULSE 93; RESP 18; TEMP 36.3; O2SAT 98
[2023-11-19] MEDS: hydrOXYzine HCL 25 MG TABLET PO (18:13)
[2023-11-19 19:42] VITALS: BP 128/74; PULSE 93; RESP 18; TEMP 36.3; O2SAT 96
[2023-11-19] MEDS: Montelukast Sodium 10 MG TABLET PO (19:44)
[2023-11-19] MEDS: traZODone HCL 50 MG TABLET 150 MG PO (19:44)
[2023-11-19] MEDS: Mirtazapine 15 MG TABLET PO (19:44)
[2023-11-19] MEDS: Prazosin HCL 1 MG CAPSULE 4 MG PO (19:45)
[2023-11-19 20:34] LABS: Glucose, Whole Blood 156 mg/dL (60-115)
[2023-11-20] MEDS: LORazepam 0.5 MG TABLET PO ×3 (00:44→15:17)
[2023-11-20] MEDS: Omeprazole 20 MG CAPSULE.DR PO (06:29)
[2023-11-20] MEDS: Famotidine 20 MG TABLET 10 MG PO (06:29)
[2023-11-20 07:16] VITALS: BP 112/60; PULSE 71; RESP 16; TEMP 36.3; O2SAT 95
[2023-11-20 07:26] LABS: Glucose, Whole Blood 143 mg/dL (60-115)
[2023-11-20] MEDS: busPIRone HCl 5 MG TABLET 15 MG PO (07:57)
[2023-11-20] MEDS: Nitrofurantoin Monohyd/M-Cryst 100 MG CAPSULE PO (07:57)
[2023-11-20] MEDS: FLUoxetine HCl 20 MG CAPSULE 80 MG PO (07:57)
[2023-11-20] MEDS: hydrOXYzine HCL 25 MG TABLET PO (07:58)
[2023-11-20] MEDS: Atorvastatin Calcium 10 MG TABLET PO (07:58)
[2023-11-20] MEDS: Benztropine Mesylate 1 MG TABLET PO (07:58)
[2023-11-20] MEDS: fluPHENAZine HCl 5 MG TABLET PO ×2 (07:58→15:15)
[2023-11-20] MEDS: lisinopriL 5 MG TABLET PO (07:58)
--- NOTE | 2023-11-20 09:28 | P.PNIM_ITS ---
Subjective Subjective Date of Service: 11/20/23 Interval History: no complaints Physical Exam 2 Vital Signs: Vital Signs: Last Vital Signs Temp 97.3 F 11/20/23 07:16 Pulse 71 11/20/23 07:16 Resp 16 11/20/23 07:16 BP 112/60 11/20/23 07:16 Pulse Ox 95 11/20/23 07:16 O2 Del Method Room Air 11/20/23 07:16 O2 Flow Rate 0 11/18/23 05:00 BMI result Body Mass Index 38.1 Const: General: cooperative, comfortable, no acute distress, well developed, alert, awake and Physically active Orientation/consciousness: patient oriented x3 HEENT: Head: Yes normal to inspection, Yes normocephalic and Yes atraumatic Eyes: General: appearance normal, both eyes and all related structures Neck: Neck: Yes normal visual inspection, Yes no meningeal signs and Yes supple Chest: Chest palpation & inspection: normal inspection of the chest Resp: Other: no appreciable rales, rhonchi, wheezing Effort & Inspection: normal respiratory effort Cardio: Rate: regular rate Rhythm: regular rhythm GI: Inspection: Yes normal to inspection, No Abdominal wall edema and No distended Palpation (GI): Soft to palpation, not firm, nontender, no guarding and not rigid Skin: General skin exam: no rashes or lesions noted Neuro: General: patient oriented x3, tone normal, moves all extremities, no meningeal signs and no focal motor deficits Extrem: General: Yes normal to inspection, Yes capillary refill normal and Yes no clubbing, cyanosis or edema Psych: Other: appropriate to circumstance Objective Data Active Medications Atorvastatin Calcium (Atorvastatin Calcium 10 Mg Tablet) 10 mg PO DAILY [facility] Last Admin: 11/20/23 07:58 Dose: 10 mg Documented By: NAVI Benztropine Mesylate (Benztropine Mesylate 1 Mg Tablet) 1 mg PO BID [facility] Last Admin: 11/20/23 07:58 Dose: 1 mg Documented By: NAVI Buspirone HCl (Buspirone Hcl 5 Mg Tablet) 15 mg PO DAILY [facility] Last Admin: 11/20/23 07:57 Dose: 15 mg Documented By: NAVI Dextrose (Dextrose 50 % 25 Gm/50 Ml Syringe) 25 gm IVPUSH Q15M PRN; Protocol PRN Reason: per Hypoglycemia Standing Ord. Famotidine (Famotidine 20 Mg Tablet) 10 mg PO BID@0630,1630 [facility] Last Admin: 11/20/23 06:29 Dose: 10 mg Documented By: BLACK Fluoxetine HCl (Fluoxetine Hcl 20 Mg Capsule) 80 mg PO DAILY [facility] Last Admin: 11/20/23 07:57 Dose: 80 mg Documented By: NAVI Fluphenazine HCl (Fluphenazine Hcl 5 Mg Tablet) 5 mg PO TID [facility] Last Admin: 11/20/23 07:58 Dose: 5 mg Documented By: NAVI Fluticasone/Vilanterol (Fluticasone/Vilanterol 100/25 Blst.W.Dev) 1 puff INHALE RDAILY [facility] Glucose (Glucose Gel 15 Gm Gel..Gram.) 15 gm PO Q15M PRN; Protocol PRN Reason: per Hypoglycemia Standing Ord. Hydroxyzine HCl (Hydroxyzine Hcl 25 Mg Tablet) 25 mg PO Q8H PRN PRN Reason: Anxiety Last Admin: 11/20/23 07:58 Dose: 25 mg Documented By: NAVI Insulin Human Lispro (Insulin Lispro 100 Unit/Ml 3 Ml Vial) 0 unit SUBCUT QIDACHS [facility]; Protocol Last Admin: 11/20/23 08:02 Dose: Not Given Documented By: NAVI Non-Admin Reason: No Insulin Coverage Lisinopril (Lisinopril 5 Mg Tablet) 5 mg PO DAILY [facility]; Protocol Last Admin: 11/20/23 07:58 Dose: 5 mg Documented By: NAVI Lorazepam (Lorazepam 0.5 Mg Tablet) 0.5 mg PO QID PRN PRN Reason: Anxiety Last Admin: 11/20/23 00:44 Dose: 0.5 mg Documented By: BLACK Comments: md talamantes Mirtazapine (Mirtazapine 15 Mg Tablet) 15 mg PO BEDTIME [facility] Last Admin: 11/19/23 19:44 Dose: 15 mg Documented By: BLACK Montelukast Sodium (Montelukast Sodium 10 Mg Tablet) 10 mg PO BEDTIME [facility] Last Admin: 11/19/23 19:44 Dose: 10 mg Documented By: BLACK Nitrofurantoin Macrocrystals (Nitrofurantoin Monohyd/M-Cryst 100 Mg Capsule) 100 mg PO BID [facility] Last Admin: 11/20/23 07:57 Dose: 100 mg Documented By: NAVI Omeprazole (Omeprazole 20 Mg Capsule.) 20 mg PO DAILY@0630 [facility] Last Admin: 11/20/23 06:29 Dose: 20 mg Documented By: BLACK Ondansetron HCl (Ondansetron Hcl 4 Mg/2 Ml Vial) 4 mg IVPUSH Q8H PRN PRN Reason: Nausea and Vomiting Last Admin: 11/17/23 22:43 Dose: 4 mg Documented By: MUSA Prazosin HCl (Prazosin Hcl 1 Mg Capsule) 4 mg PO BEDTIME [facility]; Protocol Last Admin: 11/19/23 19:45 Dose: 4 mg Documented By: BLACK Trazodone HCl (Trazodone Hcl 50 Mg Tablet) 150 mg PO BEDTIME [facility] Last Admin: 11/19/23 19:44 Dose: 150 mg Documented By: BLACK Labs 11/18/23 08:44 11/18/23 08:44 Labs: Laboratory Results - last 24 hr 11/19/23 11/19/23 11/19/23 10:55 16:44 20:30 POC Glucose 127 H 122 H 156 H 11/20/23 07:21 POC Glucose 143 H Assessment and Plan (1) Suicide attempt: Status: Acute Plan 47F PMH mood disorder, hld, htn, dm, presented with suicide attempt with tylenol overdose depression with suicide attempt, tylenol overdose s/p nac medically cleared, care team working on dispo dm insulin hld statin htn lisinopril dvt prophylaxis - lovenox full code reason for continued hospitalization:care team working on dispo Quality Stroke Does the patient have a stroke diagnosis?: No VTE Prior VTE?: No VTE Risk Level:: Medical - moderate - high VTE Device Contraindication: N/A - Device Ordered VTE Drug Contraindication: Treatment Not Tolerated
[2023-11-20 11:19] LABS: Glucose, Whole Blood 130 mg/dL (60-115)
[2023-11-20 14:30] LABS: COVID-19 Test Negative (Negative); IDNOW Serial# 152EDE1D
--- NOTE | 2023-11-20 14:31 | PM.DS ---
DS: Providers Provider Date of Service: 11/20/23 Date of admission: 11/17/23 20:59 Primary care physician: Maribel Marquez NP Consults: 11/18/23 08:48 Consult to Psychiatry Routine Consulting Provider: Psych Covering Reason for consultation: Suicidal Attempt Has provider been notified: No 11/18/23 12:24 Consult for Sitter Routine Reason for consultation: SI 11/19/23 08:00 Consult to Care Team Routine Comment: Reason for consultation: Inpatient Psychiatry 11/19/23 08:48 Consult to Care Team Routine Comment: Reason for consultation: tylenol overdose intentional, mediclaly cleared DS: Diagnosis Discharge Diagnosis (1) Suicide attempt: Status: Acute DS: Summary Hospital Course Hospital Course: from initial hpi: 47-year-old female with underlying history of anxiety, depression, PTSD and multiple attempts of suicide who has been seen in the emergency room in the past few days due to anxiety attacks, presents to us after being seen in the emergency room due to reported intentional overdose during her attempt of killing herself, she ingested a bowel 50 caplets of 100 mg Tylenol. Patient reported to be under a lot of stress. Patient denied any other symptomatology at the time. She has had about 10 toxic ingestions associated with Tylenol in the past. In the emergency room, the patient was seen noted to be hemodynamically stable. Her initial workup reveal no white count, chronic but stable H&H of 10.1 and 32.6 respectively, platelets 350. Sodium 140, potassium 4.8, chloride 107, carbon dioxide 23, BUN 12, creatinine 0.95, SAT 38, ALT 14, lipase 13. Beta HCG on 11/09/2023 was less than 2. Her tox screen did reveal a acetaminophen level of 89, salicylates less than 5 otherwise negative and alcohol level less than 10. Patient was given oral charcoal, started on acetylcysteine at 15 milligrams/kilogram, poison control was contacted. Patient is currently on a one-to-one with a sitter. She has not aggressive, denies hallucinations. During my evaluation, patient did complain of discomfort upon urinating along with increased urinary frequency and urgency in the last couple of days, denies any hematuria, no back pain or flank pain, she does not recall having kidney stones. Currently she feels somewhat nauseous but otherwise better than earlier. hospital course: Patient was admitted for depression with suicide attempt with intentional overdose of Tylenol. Received course of N-acetylcysteine. Her liver tests remain normal. Tylenol level returned to normal she was seen by care team who recommended inpatient psychiatric admission. For diabetes she was continued on insulin. For hyperlipidemia she was continued on statin. For hypertension she was continued on lisinopril Time Attestation Discharge coordination time: Greater than 30 minutes Quality: Safe Use of Opioids Does Pt have an Active Cancer Diagnosis on the Problem List?: No Quality: Stroke Does the patient have a stroke diagnosis?: No Physical Exam Vital Signs: Vital Signs: Last Vital Signs Temp 97.3 F 11/20/23 07:16 Pulse 71 11/20/23 07:16 Resp 16 11/20/23 07:16 BP 112/60 11/20/23 07:16 Pulse Ox 95 11/20/23 07:16 O2 Del Method Room Air 11/20/23 07:16 O2 Flow Rate 0 11/18/23 05:00 BMI result Body Mass Index 38.1 General: AO X 3, no acute distress Resp: CTA bilateral, no accessory muscles used CVS: S1,S2,RRR GI: soft, non tender, non distended Neuro: motor grossly intact, alert DS: Data Data Completed and Pending Completed studies during hospitalization [Text1]: Procedures Insertion of Infusion Device into Left Internal Jugular Vein, Percutaneous Approach (02/09/22) Labs on day of discharge: Laboratory Results - last 24 hr 11/19/23 11/19/23 11/20/23 16:44 20:30 07:21 POC Glucose 122 H 156 H 143 H COVID-19 ([facility]) COVID-19 Clin Com 11/20/23 11/20/23 11:15 14:08 POC Glucose 130 H COVID-19 ([facility]) Negative COVID-19 Clin Com See Note Discharge Plan Discharge Anticipated Discharge Date/Time: 11/20/23 14:26 Patient Disposition: Xfer Psychiatric Hosp Discharge Diagnosis: si tyelnol overdose Referrals: Maribel Marquez NP [Primary Care Provider] - 1 Week Discharge Medications: Continued fluoxetine 40 mg capsule 80 mg PO DAILY lorazepam 0.5 mg tablet 0.5 mg PO BID PRN (Reason: Anxiety) fluticasone propion-salmeterol 250-50 mcg/dose blister with device 1 ea inhalation BID buspirone 15 mg tablet 15 mg PO DAILY lisinopril 5 mg tablet 5 mg PO DAILY prazosin 2 mg capsule 4 mg PO BEDTIME famotidine 10 mg Tablet 10 mg PO BID@0630,1630 fluphenazine HCl 5 mg tablet 5 mg PO BID albuterol sulfate [Ventolin HFA] 90 mcg/actuation HFA aerosol inhaler 2 inh inhalation Q4H PRN (Reason: Shortness Of Breath Or Wheezing) montelukast 10 mg tablet 10 mg PO BEDTIME metformin 500 mg tablet 500 mg PO BID atorvastatin 10 mg tablet 10 mg PO DAILY pantoprazole 40 mg tablet,delayed release (DR/EC) 40 mg PO DAILY@0630 trazodone 150 mg tablet 150 mg PO BEDTIME benztropine 1 mg tablet 1 mg PO BID mirtazapine 7.5 mg tablet 7.5 mg PO BEDTIME Discharge Orders: Discharge Order (Routine); Ordered 11/20/23 Ordered By: Brad Portillo Diet: Advance to usual diet Activity on Discharge: As tolerated Stand Alone Forms: Patient Portal Discharge page Care Plan Goals: recovery Health Concerns: si Plan of Treatment: transfer to psych Assessment: see above
--- NOTE | 2023-11-20 14:44 | MHC.CM.PN ---
Patient d/c'd to inpatient psych unit.
--- NOTE | 2023-11-20 14:45 | MHC.CM.PN ---
Patient transferred to inpatient psych unit
[2023-11-20 15:09] VITALS: BP 137/74; PULSE 92; RESP 20; TEMP 36.5; O2SAT 96
[2023-11-21 07:14] LABS: Glucose, Whole Blood 152 mg/dL (60-115)
== END 2023-11-20 15:44 | DRG 918 ==
LOC: HO.ED 21:04 → HO.EDOVER 21:09 → HO.ICU 22:01 → HO.S3 11-18 11:37
PROVIDERS: Internal Medicine Critical Care Medicine; Physician Assistant Medical; Admitting Provider Physician Assistant Medical; Emergency Provider Emergency Medicine Emergency Medical Services; PCP Nurse Practitioner Family; Visit Provider Internal Medicine
DX: T39.1X2A Poisoning by 4-Aminophenol derivatives, intentional self-harm, initial encounter (principal); F60.3 Borderline personality disorder; E11.9 Type 2 diabetes mellitus without complications; E78.5 Hyperlipidemia, unspecified; F32.9 Major depressive disorder, single episode, unspecified; I10 Essential (primary) hypertension; E66.09 Other obesity due to excess calories; F43.10 Post-traumatic stress disorder, unspecified; Z20.822 Contact with and (suspected) exposure to COVID-19; Z87.891 Personal history of nicotine dependence; Z68.38 Body mass index [BMI] 38.0-38.9, adult; Z91.51 Personal history of suicidal behavior; Z79.84 Long term (current) use of oral hypoglycemic drugs; Z79.899 Other long term (current) drug therapy
CPT/HCPCS: 36415; 80048; 80053; 80076; 80143; 80179; 80307; 81001; 81003; 81025; 82565; 82947; 83036; 83690; 85025; 85048; 85610; 85730; 87086; 87635; 93005; 99283; 99285; 99499; C1758; J0132; J2405; S9485

== ENCOUNTER → 2023-11-17 19:28 | Outpatient (BNV) | payer MEDICARE, MEDICAID, SELFPAY | PROVIDERS: Admitting Provider Physician Assistant Medical; Emergency Provider Emergency Medicine Emergency Medical Services; Visit Provider Internal Medicine Cardiovascular Disease | DX: R45.851 Suicidal ideations (principal) | CPT/HCPCS: 93010 ==

== ENCOUNTER → 2023-11-17 20:59 | Outpatient (BNV) | payer MEDICARE, MEDICAID, SELFPAY | PROVIDERS: Admitting Provider Physician Assistant Medical; Emergency Provider Emergency Medicine Emergency Medical Services; PCP Nurse Practitioner Family; Visit Provider Internal Medicine | DX: T14.91XA Suicide attempt, initial encounter (principal) | CPT/HCPCS: 99232; 99239; 99499 ==

== ENCOUNTER → 2023-11-17 20:59 | Outpatient (BNV) | payer MEDICARE, MEDICAID, SELFPAY | PROVIDERS: Admitting Provider Physician Assistant Medical; Emergency Provider Emergency Medicine Emergency Medical Services; Visit Provider Internal Medicine Critical Care Medicine | DX: T39.1X2A Poisoning by 4-Aminophenol derivatives, intentional self-harm, initial encounter (principal); F43.10 Post-traumatic stress disorder, unspecified; E11.9 Type 2 diabetes mellitus without complications; F60.3 Borderline personality disorder | CPT/HCPCS: 99291 ==

== ENCOUNTER → 2023-11-17 20:59 | Outpatient (BNV) | payer MEDICARE, MEDICAID, SELFPAY | PROVIDERS: Admitting Provider Physician Assistant Medical; Emergency Provider Emergency Medicine Emergency Medical Services; Visit Provider Psychiatry & Neurology Psychiatry | DX: F60.3 Borderline personality disorder (principal); F33.3 Major depressive disorder, recurrent, severe with psychotic symptoms; T39.1X2A Poisoning by 4-Aminophenol derivatives, intentional self-harm, initial encounter; F43.11 Post-traumatic stress disorder, acute | CPT/HCPCS: 99223 ==

== ENCOUNTER 2023-11-20 16:07 | Inpatient (IN) | payer MEDICARE, MEDICAID, SELFPAY ==
[2023-11-20 16:00] VITALS: BP 132/77; PULSE 100; RESP 18; TEMP 36.5; O2SAT 98
[2023-11-20 16:43] VITALS: BMI 38.6
[2023-11-20] MEDS: hydrOXYzine HCL 25 MG TABLET PO (16:53)
[2023-11-20] MEDS: LORazepam 0.5 MG TABLET PO (16:53)
[2023-11-20] MEDS: LORazepam 1 MG TABLET PO (18:06)
[2023-11-20] MEDS: Famotidine 20 MG TABLET 10 MG PO (18:06)
[2023-11-20] MEDS: Mirtazapine 15 MG TABLET PO (19:59)
[2023-11-20] MEDS: fluPHENAZine HCl 5 MG TABLET PO (20:00)
[2023-11-20 21:17] VITALS: RESP 18
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
[2023-11-21] MEDS: Omeprazole 20 MG CAPSULE.DR PO (06:23)
[2023-11-21] MEDS: Famotidine 20 MG TABLET 10 MG PO ×2 (06:24→16:22)
[2023-11-21 08:19] LABS: Glucose, Whole Blood 116 mg/dL (60-115)
[2023-11-21] MEDS: Atorvastatin Calcium 10 MG TABLET PO (08:52)
[2023-11-21] MEDS: lisinopriL 5 MG TABLET PO (08:52)
[2023-11-21] MEDS: Nitrofurantoin Monohyd/M-Cryst 100 MG CAPSULE PO ×2 (08:52→21:13)
[2023-11-21] MEDS: fluPHENAZine HCl 5 MG TABLET PO ×3 (08:52→21:13)
[2023-11-21] MEDS: Benztropine Mesylate 1 MG TABLET PO ×2 (08:52→21:13)
[2023-11-21] MEDS: FLUoxetine HCl 20 MG CAPSULE 80 MG PO (08:53)
[2023-11-21] MEDS: Fluticasone/Vilanterol 100/25 BLST.W.DEV 1 PUFF INHALE (08:53)
[2023-11-21] MEDS: busPIRone HCl 5 MG TABLET 15 MG PO (08:53)
[2023-11-21 09:00] VITALS: BP 137/85; PULSE 85; RESP 18; TEMP 36.4; O2SAT 96
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
[2023-11-21] MEDS: LORazepam 0.5 MG TABLET PO ×3 (10:42→21:13)
[2023-11-21 12:23] LABS: Glucose, Whole Blood 128 mg/dL (60-115)
[2023-11-21] MEDS: hydrOXYzine HCL 25 MG TABLET PO (13:24)
[2023-11-21 16:55] LABS: Glucose, Whole Blood 170 mg/dL (60-115)
[2023-11-21] MEDS: Insulin Lispro 100 UNIT/ML 3 ML VIAL SUBCUT (17:10)
[2023-11-21] MEDS: Lactulose 20 GM/30 ML SOLUTION PO (17:41)
[2023-11-21] MEDS: hydrOXYzine HCL 50 MG TABLET PO (17:48)
[2023-11-21 18:00] VITALS: BP 128/76; PULSE 82; RESP 18; TEMP 36.1; O2SAT 97
--- NOTE | 2023-11-21 19:37 | PC.NURSE ---
Assumed care of pt at 19:00, sitting in hallway engaging with 1:1. Appears to be in no apparent distress @ this time. Plan of care ongoing.
[2023-11-21] MEDS: Mirtazapine 15 MG TABLET PO (21:13)
[2023-11-21] MEDS: traZODone HCL 50 MG TABLET 150 MG PO (21:13)
[2023-11-21] MEDS: Prazosin HCL 1 MG CAPSULE 4 MG PO (21:14)
[2023-11-21] MEDS: Montelukast Sodium 10 MG TABLET PO (21:14)
[2023-11-21 22:02] LABS: Glucose, Whole Blood 123 mg/dL (60-115)
[2023-11-22] MEDS: Omeprazole 20 MG CAPSULE.DR PO (05:44)
[2023-11-22] MEDS: Famotidine 20 MG TABLET 10 MG PO ×2 (05:44→16:06)
[2023-11-22 08:15] LABS: Glucose, Whole Blood 136 mg/dL (60-115)
[2023-11-22] MEDS: FLUoxetine HCl 20 MG CAPSULE 80 MG PO (08:17)
[2023-11-22] MEDS: busPIRone HCl 5 MG TABLET 15 MG PO (08:18)
[2023-11-22] MEDS: Benztropine Mesylate 1 MG TABLET PO ×2 (08:18→21:02)
[2023-11-22] MEDS: Nitrofurantoin Monohyd/M-Cryst 100 MG CAPSULE PO ×2 (08:18→21:02)
[2023-11-22] MEDS: lisinopriL 5 MG TABLET PO (08:18)
[2023-11-22] MEDS: Atorvastatin Calcium 10 MG TABLET PO (08:18)
[2023-11-22] MEDS: fluPHENAZine HCl 5 MG TABLET PO ×3 (08:18→21:02)
[2023-11-22] MEDS: Fluticasone/Vilanterol 100/25 BLST.W.DEV 1 PUFF INHALE (08:20)
[2023-11-22 08:30] VITALS: BP 123/69; PULSE 107; RESP 18; TEMP 36.4; O2SAT 96
[2023-11-22 12:14] LABS: Glucose, Whole Blood 238 mg/dL (60-115)
[2023-11-22] MEDS: Insulin Lispro 100 UNIT/ML 3 ML VIAL SUBCUT ×3 (12:24→21:00)
[2023-11-22] MEDS: LORazepam 0.5 MG TABLET PO ×2 (12:30→16:06)
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
[2023-11-22 17:35] LABS: Glucose, Whole Blood 183 mg/dL (60-115)
[2023-11-22] MEDS: traZODone HCL 50 MG TABLET 150 MG PO (21:01)
[2023-11-22] MEDS: Prazosin HCL 1 MG CAPSULE 4 MG PO (21:02)
[2023-11-22] MEDS: Mirtazapine 15 MG TABLET PO (21:02)
[2023-11-22] MEDS: Montelukast Sodium 10 MG TABLET PO (21:02)
[2023-11-22] MEDS: cloZAPine 25 MG TABLET PO (21:02)
[2023-11-22 21:06] VITALS: BP 132/82; PULSE 97; RESP 17; TEMP 36.6; O2SAT 97
[2023-11-22 21:13] LABS: Glucose, Whole Blood 279 mg/dL (60-115)
[2023-11-23] MEDS: Famotidine 20 MG TABLET 10 MG PO ×2 (06:29→17:37)
[2023-11-23] MEDS: Omeprazole 20 MG CAPSULE.DR PO (06:29)
[2023-11-23 07:54] LABS: Glucose, Whole Blood 159 mg/dL (60-115)
[2023-11-23] MEDS: Fluticasone/Vilanterol 100/25 BLST.W.DEV 1 PUFF INHALE (08:27)
[2023-11-23] MEDS: Benztropine Mesylate 1 MG TABLET PO ×2 (08:28→21:55)
[2023-11-23] MEDS: Atorvastatin Calcium 10 MG TABLET PO (08:28)
[2023-11-23] MEDS: fluPHENAZine HCl 5 MG TABLET PO ×3 (08:28→21:55)
[2023-11-23] MEDS: lisinopriL 5 MG TABLET PO (08:28)
[2023-11-23] MEDS: FLUoxetine HCl 20 MG CAPSULE 80 MG PO (08:28)
[2023-11-23] MEDS: busPIRone HCl 5 MG TABLET 15 MG PO ×2 (08:28→15:13)
[2023-11-23] MEDS: Insulin Lispro 100 UNIT/ML 3 ML VIAL SUBCUT ×4 (08:28→21:57)
[2023-11-23] MEDS: Nitrofurantoin Monohyd/M-Cryst 100 MG CAPSULE PO ×2 (08:28→21:54)
[2023-11-23 08:34] VITALS: BP 116/59; PULSE 87; RESP 16; TEMP 36.6; O2SAT 95
[2023-11-23 11:12] LABS: Neut%MD 56.6 %; Neutrophils Absolute Auto 2.5 x10*3/uL (2.0-8.3); WBCANC 4.4 X10*3/uL
[2023-11-23 11:29] LABS: Estimated Average Glucose 117 mg/dL; Hemoglobin A1c % 5.7 % (<6.0)
[2023-11-23] MEDS: LORazepam 0.5 MG TABLET PO ×2 (11:30→16:29)
[2023-11-23 12:34] LABS: Glucose, Whole Blood 248 mg/dL (60-115)
[2023-11-23] MEDS: HaloperidoL 1 MG TABLET 2 MG PO ×2 (15:37→17:41)
[2023-11-23 17:32] LABS: Glucose, Whole Blood 221 mg/dL (60-115)
[2023-11-23] MEDS: metFORMIN HCl 500 MG TABLET PO (17:37)
[2023-11-23] MEDS: hydrOXYzine HCL 50 MG TABLET PO (17:41)
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
[2023-11-23 21:31] LABS: Glucose, Whole Blood 213 mg/dL (60-115)
[2023-11-23 21:50] VITALS: BP 132/73; PULSE 102; RESP 18; TEMP 36.6; O2SAT 98
[2023-11-23] MEDS: Prazosin HCL 1 MG CAPSULE 4 MG PO (21:54)
[2023-11-23] MEDS: traZODone HCL 50 MG TABLET 150 MG PO (21:54)
[2023-11-23] MEDS: Mirtazapine 15 MG TABLET PO (21:55)
[2023-11-23] MEDS: Montelukast Sodium 10 MG TABLET PO (21:55)
[2023-11-23] MEDS: cloZAPine 25 MG TABLET PO (21:55)
[2023-11-24 06:00] VITALS: BP 130/60; PULSE 89; RESP 18; TEMP 36.4; O2SAT 99
[2023-11-24] MEDS: Famotidine 20 MG TABLET 10 MG PO ×2 (06:23→17:34)
[2023-11-24] MEDS: Omeprazole 20 MG CAPSULE.DR PO (06:24)
[2023-11-24 08:16] LABS: Glucose, Whole Blood 146 mg/dL (60-115)
[2023-11-24] MEDS: busPIRone HCl 5 MG TABLET 15 MG PO (08:42)
[2023-11-24] MEDS: fluPHENAZine HCl 5 MG TABLET PO ×3 (08:42→21:41)
[2023-11-24] MEDS: Atorvastatin Calcium 10 MG TABLET PO (08:42)
[2023-11-24] MEDS: Nitrofurantoin Monohyd/M-Cryst 100 MG CAPSULE PO ×2 (08:42→21:42)
[2023-11-24] MEDS: metFORMIN HCl 500 MG TABLET PO ×2 (08:42→17:35)
[2023-11-24] MEDS: FLUoxetine HCl 20 MG CAPSULE 80 MG PO (08:43)
[2023-11-24] MEDS: Benztropine Mesylate 1 MG TABLET PO ×2 (08:43→21:43)
[2023-11-24] MEDS: Fluticasone/Vilanterol 100/25 BLST.W.DEV 1 PUFF INHALE (08:43)
[2023-11-24] MEDS: lisinopriL 5 MG TABLET PO (08:43)
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
[2023-11-24] MEDS: HaloperidoL 1 MG TABLET 2 MG PO (11:11)
[2023-11-24 12:23] LABS: Glucose, Whole Blood 188 mg/dL (60-115)
[2023-11-24] MEDS: Insulin Lispro 100 UNIT/ML 3 ML VIAL SUBCUT ×3 (12:24→21:37)
[2023-11-24] MEDS: LORazepam 0.5 MG TABLET PO ×2 (12:50→21:44)
[2023-11-24] MEDS: hydrOXYzine HCL 50 MG TABLET PO (14:04)
[2023-11-24] MEDS: HaloperidoL 5 MG TABLET PO ×3 (14:16→21:42)
[2023-11-24] MEDS: Lactulose 20 GM/30 ML SOLUTION PO (16:01)
[2023-11-24 16:47] VITALS: BP 132/86; PULSE 109; RESP 16; TEMP 36.7; O2SAT 99
[2023-11-24 17:18] LABS: Glucose, Whole Blood 228 mg/dL (60-115)
[2023-11-24 20:28] LABS: Glucose, Whole Blood 184 mg/dL (60-115)
[2023-11-24] MEDS: Montelukast Sodium 10 MG TABLET PO (21:41)
[2023-11-24] MEDS: cloZAPine 25 MG TABLET 50 MG PO (21:41)
[2023-11-24] MEDS: Mirtazapine 15 MG TABLET PO (21:42)
[2023-11-24] MEDS: traZODone HCL 50 MG TABLET 150 MG PO (21:43)
[2023-11-24] MEDS: Prazosin HCL 1 MG CAPSULE 4 MG PO (21:43)
[2023-11-25] MEDS: Famotidine 20 MG TABLET 10 MG PO ×2 (05:53→16:09)
[2023-11-25] MEDS: Omeprazole 20 MG CAPSULE.DR PO (05:54)
[2023-11-25 07:38] LABS: Creatinine Clr Calc Pharmacy 103.2; Estimated Glomerular Filt Rate > 60
[2023-11-25 08:35] VITALS: BP 117/63; PULSE 84; RESP 20; TEMP 36.2; O2SAT 97
[2023-11-25 08:46] LABS: Glucose, Whole Blood 132 mg/dL (60-115)
[2023-11-25] MEDS: FLUoxetine HCl 20 MG CAPSULE 80 MG PO (10:26)
[2023-11-25] MEDS: busPIRone HCl 5 MG TABLET 15 MG PO (10:27)
[2023-11-25] MEDS: metFORMIN HCl 500 MG TABLET PO ×2 (10:27→16:09)
[2023-11-25] MEDS: lisinopriL 5 MG TABLET PO (10:27)
[2023-11-25] MEDS: Benztropine Mesylate 1 MG TABLET PO ×2 (10:27→21:25)
[2023-11-25] MEDS: Nitrofurantoin Monohyd/M-Cryst 100 MG CAPSULE PO ×2 (10:27→21:25)
[2023-11-25] MEDS: Fluticasone/Vilanterol 100/25 BLST.W.DEV 1 PUFF INHALE (10:28)
[2023-11-25] MEDS: HaloperidoL 5 MG TABLET PO (10:28)
[2023-11-25] MEDS: Atorvastatin Calcium 10 MG TABLET PO (10:28)
[2023-11-25] MEDS: fluPHENAZine HCl 5 MG TABLET PO ×3 (10:28→21:25)
[2023-11-25 12:17] LABS: Glucose, Whole Blood 163 mg/dL (60-115)
[2023-11-25] MEDS: Insulin Lispro 100 UNIT/ML 3 ML VIAL SUBCUT ×3 (12:49→21:26)
[2023-11-25] MEDS: LORazepam 0.5 MG TABLET PO (16:09)
[2023-11-25 17:12] VITALS: BP 143/65; PULSE 100; RESP 18; TEMP 36.7; O2SAT 98
[2023-11-25 17:16] LABS: Glucose, Whole Blood 196 mg/dL (60-115)
[2023-11-25 20:42] LABS: Glucose, Whole Blood 228 mg/dL (60-115)
[2023-11-25] MEDS: traZODone HCL 50 MG TABLET 150 MG PO (21:25)
[2023-11-25] MEDS: Montelukast Sodium 10 MG TABLET PO (21:25)
[2023-11-25] MEDS: Mirtazapine 15 MG TABLET PO (21:25)
[2023-11-25] MEDS: cloZAPine 25 MG TABLET 50 MG PO (21:25)
[2023-11-25] MEDS: Prazosin HCL 1 MG CAPSULE 4 MG PO (21:26)
[2023-11-26] MEDS: Famotidine 20 MG TABLET 10 MG PO ×2 (05:37→16:26)
[2023-11-26] MEDS: Omeprazole 20 MG CAPSULE.DR PO (05:38)
[2023-11-26 08:05] VITALS: BP 149/68; PULSE 90; RESP 16; TEMP 36.1; O2SAT 97
[2023-11-26 08:10] LABS: Glucose, Whole Blood 175 mg/dL (60-115)
[2023-11-26] MEDS: FLUoxetine HCl 20 MG CAPSULE 80 MG PO (08:51)
[2023-11-26] MEDS: metFORMIN HCl 500 MG TABLET PO ×2 (08:51→17:35)
[2023-11-26] MEDS: fluPHENAZine HCl 5 MG TABLET PO ×3 (08:51→20:26)
[2023-11-26] MEDS: Atorvastatin Calcium 10 MG TABLET PO (08:51)
[2023-11-26] MEDS: Insulin Lispro 100 UNIT/ML 3 ML VIAL SUBCUT ×3 (08:51→20:25)
[2023-11-26] MEDS: busPIRone HCl 5 MG TABLET 15 MG PO (08:51)
[2023-11-26] MEDS: lisinopriL 5 MG TABLET PO (08:51)
[2023-11-26] MEDS: Benztropine Mesylate 1 MG TABLET PO ×2 (08:51→20:26)
[2023-11-26] MEDS: Nitrofurantoin Monohyd/M-Cryst 100 MG CAPSULE PO ×2 (08:51→20:26)
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
[2023-11-26 12:33] LABS: Glucose, Whole Blood 139 mg/dL (60-115)
[2023-11-26] MEDS: HaloperidoL 5 MG TABLET PO ×2 (14:07→17:35)
[2023-11-26 15:52] LABS: Neut%MD 67.3 %; Neutrophils Absolute Auto 4.8 x10*3/uL (2.0-8.3); WBCANC 7.2 X10*3/uL
[2023-11-26] MEDS: hydrOXYzine HCL 50 MG TABLET PO (16:26)
[2023-11-26] MEDS: LORazepam 0.5 MG TABLET PO (16:26)
[2023-11-26 17:22] LABS: Glucose, Whole Blood 226 mg/dL (60-115)
[2023-11-26 17:39] VITALS: BP 138/91; PULSE 120; RESP 18; TEMP 36.6; O2SAT 97
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
[2023-11-26 20:24] LABS: Glucose, Whole Blood 195 mg/dL (60-115)
[2023-11-26] MEDS: Montelukast Sodium 10 MG TABLET PO (20:26)
[2023-11-26] MEDS: traZODone HCL 50 MG TABLET 150 MG PO (20:26)
[2023-11-26] MEDS: cloZAPine 25 MG TABLET 75 MG PO (20:26)
[2023-11-26] MEDS: Prazosin HCL 1 MG CAPSULE 4 MG PO (20:26)
[2023-11-26] MEDS: Mirtazapine 15 MG TABLET PO (20:26)
[2023-11-26 20:29] VITALS: BP 132/72; PULSE 120
--- NOTE | 2023-11-26 21:36 | PM.EVENT ---
Event Note Date of Service: 11/26/23 Event Note: Pt with [id number] type 2 diabetes admitted to Psychiatry with consult placed to hospitalist service for evaluation of hyperglycemia. The patient's last A1c was 5.7%. She takes metformin at home. POC glucose levels have been elevated. This indicates the patient is not compliant with diabetic diet. Would recommend changing diet to diabetic diet. Continue metformin, add sliding scale. Hgb A1c is reflective of glucose control outside of the hospital as well, so snacking and diet should be focused on in the hospital. Time Spent With Patient Time: Total time managing care of this patient today ____ minutes.
[2023-11-27] MEDS: Famotidine 20 MG TABLET 10 MG PO ×2 (05:47→16:23)
[2023-11-27] MEDS: Omeprazole 20 MG CAPSULE.DR PO (05:47)
[2023-11-27 08:09] VITALS: BP 125/62; PULSE 102; RESP 16; TEMP 36.5; O2SAT 96
[2023-11-27] MEDS: Benztropine Mesylate 1 MG TABLET PO ×2 (08:36→19:59)
[2023-11-27] MEDS: lisinopriL 5 MG TABLET PO (08:36)
[2023-11-27] MEDS: Nitrofurantoin Monohyd/M-Cryst 100 MG CAPSULE PO ×2 (08:36→19:59)
[2023-11-27] MEDS: Fluticasone/Vilanterol 100/25 BLST.W.DEV 1 PUFF INHALE (08:36)
[2023-11-27] MEDS: FLUoxetine HCl 20 MG CAPSULE 80 MG PO (08:36)
[2023-11-27] MEDS: metFORMIN HCl 500 MG TABLET PO ×2 (08:36→16:23)
[2023-11-27] MEDS: fluPHENAZine HCl 5 MG TABLET PO ×3 (08:36→19:58)
[2023-11-27] MEDS: busPIRone HCl 5 MG TABLET 15 MG PO (08:36)
[2023-11-27] MEDS: Atorvastatin Calcium 10 MG TABLET PO (08:36)
[2023-11-27 08:55] LABS: Glucose, Whole Blood 139 mg/dL (60-115)
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
[2023-11-27] MEDS: HaloperidoL 5 MG TABLET PO ×3 (10:34→19:59)
[2023-11-27 12:38] LABS: Glucose, Whole Blood 170 mg/dL (60-115)
[2023-11-27] MEDS: Insulin Lispro 100 UNIT/ML 3 ML VIAL SUBCUT ×2 (12:56→17:13)
--- NOTE | 2023-11-27 16:13 | PC.NURSE ---
Assumed care of pt at 15:30. PT showed this typewriter ribbon winder old self inflicted scratches on arm and requested band aid. Pt offers no other complaints @ this time.
[2023-11-27 17:11] LABS: Glucose, Whole Blood 180 mg/dL (60-115)
[2023-11-27] MEDS: LORazepam 0.5 MG TABLET PO ×2 (17:43→19:59)
[2023-11-27 18:00] VITALS: BP 140/64; PULSE 109; RESP 16; TEMP 36.6; O2SAT 99
[2023-11-27] MEDS: Prazosin HCL 1 MG CAPSULE 4 MG PO (19:59)
[2023-11-27] MEDS: cloZAPine 25 MG TABLET 75 MG PO (19:59)
[2023-11-27] MEDS: traZODone HCL 50 MG TABLET 150 MG PO (19:59)
[2023-11-27] MEDS: Mirtazapine 15 MG TABLET PO (19:59)
[2023-11-27] MEDS: Montelukast Sodium 10 MG TABLET PO (19:59)
--- NOTE | 2023-11-28 | ECG_ITS ---
Test Reason : QT Blood Pressure : / mmHG Vent. Rate : 110 BPM Atrial Rate : 110 BPM P-R Int : 154 ms QRS Dur : 082 ms QT Int : 362 ms P-R-T Axes : 068 063 062 degrees QTc Int : 489 ms Sinus tachycardia Possible Left atrial enlargement Borderline ECG When compared with ECG of 17-NOV-2023 19:32, No significant change was found Referred By: Jay Reed Electronically Signed By:Fabricio Kay
[2023-11-28 05:12] VITALS: BP 146/84; PULSE 98; RESP 16; TEMP 36.7; O2SAT 97
[2023-11-28] MEDS: Omeprazole 20 MG CAPSULE.DR PO (06:14)
[2023-11-28] MEDS: Famotidine 20 MG TABLET 10 MG PO ×2 (06:14→16:13)
--- NOTE | 2023-11-28 07:50 | PC.NURSE ---
Late entry: Ativan 0.5mg given to patient 11/23/23 at 11:30am. Mistakenly not scanned in.
[2023-11-28 08:12] LABS: Glucose, Whole Blood 122 mg/dL (60-115)
[2023-11-28 08:45] VITALS: BP 135/70; PULSE 93; RESP 16; TEMP 36.6; O2SAT 95
[2023-11-28] MEDS: FLUoxetine HCl 20 MG CAPSULE 80 MG PO (08:56)
[2023-11-28] MEDS: Nitrofurantoin Monohyd/M-Cryst 100 MG CAPSULE PO ×2 (08:56→19:17)
[2023-11-28] MEDS: Benztropine Mesylate 1 MG TABLET PO ×2 (08:56→19:16)
[2023-11-28] MEDS: metFORMIN HCl 500 MG TABLET PO ×2 (08:56→18:04)
[2023-11-28] MEDS: Fluticasone/Vilanterol 100/25 BLST.W.DEV 1 PUFF INHALE (08:56)
[2023-11-28] MEDS: lisinopriL 5 MG TABLET PO (08:56)
[2023-11-28] MEDS: fluPHENAZine HCl 5 MG TABLET PO (08:56)
[2023-11-28] MEDS: Atorvastatin Calcium 10 MG TABLET PO (08:56)
[2023-11-28] MEDS: busPIRone HCl 5 MG TABLET 15 MG PO (08:57)
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
[2023-11-28] MEDS: HaloperidoL 5 MG TABLET 2.5 MG PO ×2 (11:57→18:04)
[2023-11-28] MEDS: Insulin Lispro 100 UNIT/ML 3 ML VIAL SUBCUT ×3 (12:29→20:29)
[2023-11-28 12:32] LABS: Glucose, Whole Blood 167 mg/dL (60-115)
[2023-11-28] MEDS: Lactulose 20 GM/30 ML SOLUTION PO (14:09)
[2023-11-28] MEDS: HaloperidoL 5 MG TABLET PO ×2 (14:42→20:23)
[2023-11-28 16:11] LABS: Glucose, Whole Blood 199 mg/dL (60-115)
[2023-11-28] MEDS: Mirtazapine 15 MG TABLET PO (19:16)
[2023-11-28] MEDS: Montelukast Sodium 10 MG TABLET PO (19:16)
[2023-11-28] MEDS: traZODone HCL 50 MG TABLET 150 MG PO (19:16)
[2023-11-28] MEDS: Prazosin HCL 1 MG CAPSULE 4 MG PO (19:16)
[2023-11-28] MEDS: cloZAPine 100 MG TABLET PO (19:16)
[2023-11-28] MEDS: LORazepam 0.5 MG TABLET PO (20:23)
[2023-11-28 20:29] LABS: Glucose, Whole Blood 226 mg/dL (60-115)
[2023-11-29] MEDS: Omeprazole 20 MG CAPSULE.DR PO (06:15)
[2023-11-29] MEDS: Famotidine 20 MG TABLET 10 MG PO (06:17)
[2023-11-29 08:09] LABS: Glucose, Whole Blood 130 mg/dL (60-115)
[2023-11-29] MEDS: metFORMIN HCl 500 MG TABLET PO (09:39)
[2023-11-29] MEDS: Fluticasone/Vilanterol 100/25 BLST.W.DEV 1 PUFF INHALE (09:39)
[2023-11-29] MEDS: Nitrofurantoin Monohyd/M-Cryst 100 MG CAPSULE PO (09:39)
[2023-11-29] MEDS: Benztropine Mesylate 1 MG TABLET PO (09:40)
[2023-11-29] MEDS: Atorvastatin Calcium 10 MG TABLET PO (09:40)
[2023-11-29] MEDS: FLUoxetine HCl 20 MG CAPSULE 80 MG PO (09:40)
[2023-11-29] MEDS: busPIRone HCl 5 MG TABLET 15 MG PO (09:40)
[2023-11-29] MEDS: lisinopriL 5 MG TABLET PO (09:40)
[2023-11-29] MEDS: HaloperidoL 5 MG TABLET PO (09:40)
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
== END 2023-11-29 11:00 | disposition home or self-care (01) | DRG 882 ==
PROVIDERS: Admitting Provider Psychiatry & Neurology Psychiatry; PCP Nurse Practitioner Family; Visit Provider Psychiatry & Neurology Psychiatry
DX: F43.10 Post-traumatic stress disorder, unspecified (principal); F33.2 Major depressive disorder, recurrent severe without psychotic features; F60.3 Borderline personality disorder; E11.65 Type 2 diabetes mellitus with hyperglycemia; T39.1X2A Poisoning by 4-Aminophenol derivatives, intentional self-harm, initial encounter; Z91.119 Patient's noncompliance with dietary regimen due to unspecified reason; Z91.51 Personal history of suicidal behavior; Z91.52 Personal history of nonsuicidal self-harm; Z79.84 Long term (current) use of oral hypoglycemic drugs; Z79.899 Other long term (current) drug therapy
CPT/HCPCS: 36415; 82565; 82947; 83036; 85048; 93005; 99499

== ENCOUNTER 2023-11-20 16:07 | Outpatient (BNV) | payer MEDICARE, MEDICAID, SELFPAY | END 2023-11-28 14:25 | PROVIDERS: Admitting Provider Psychiatry & Neurology Psychiatry; PCP Nurse Practitioner Family; Visit Provider Internal Medicine Cardiovascular Disease | DX: R00.0 Tachycardia, unspecified (principal) | CPT/HCPCS: 93010 ==

== ENCOUNTER → 2023-11-20 16:07 | Outpatient (BNV) | payer MEDICARE, MEDICAID, SELFPAY | PROVIDERS: Admitting Provider Psychiatry & Neurology Psychiatry; PCP Nurse Practitioner Family; Visit Provider Psychiatry & Neurology Psychiatry | DX: F60.3 Borderline personality disorder (principal); F33.3 Major depressive disorder, recurrent, severe with psychotic symptoms; F43.10 Post-traumatic stress disorder, unspecified; T39.1X2D Poisoning by 4-Aminophenol derivatives, intentional self-harm, subsequent encounter; E11.9 Type 2 diabetes mellitus without complications; K21.9 Gastro-esophageal reflux disease without esophagitis | CPT/HCPCS: 90792; 99231; 99232; 99239 ==

== ENCOUNTER 2023-11-29 19:41 | Emergency (ER) | payer MEDICARE, MEDICAID, SELFPAY ==
--- NOTE | 2023-11-29 | ECG_ITS ---
Test Reason : DIZZINESS Blood Pressure : / mmHG Vent. Rate : 117 BPM Atrial Rate : 117 BPM P-R Int : 162 ms QRS Dur : 082 ms QT Int : 344 ms P-R-T Axes : 051 033 050 degrees QTc Int : 479 ms Sinus tachycardia Otherwise normal ECG When compared with ECG of 28-NOV-2023 14:25, No significant change was found Referred By: Eileen Ryan Electronically Signed By:Fabricio Kay
--- NOTE | ~2023-11-29 | XR_ITS ---
EXAMINATION: XR ANKLE, LEFT CLINICAL INFORMATION: Fall. Pain. COMPARISON: None available. TECHNIQUE: AP, lateral, and mortise views of the left ankle. FINDINGS: No displaced fracture. No dislocation. Bony prominence at the medial aspect of the navicula which could represent an accessory ossicle versus remote avulsion injury. No concerning lytic or blastic osseous lesion. Ankle mortise is maintained. Mild medial soft tissue swelling. Small plantar calcaneal spur. XR/XR ankle LT min 3V IMPRESSION: 1. Mild medial soft tissue swelling. No acute fracture or dislocation. 2. Bony prominence at the medial aspect of the navicula which could represent an accessory ossicle versus remote avulsion injury.
[2023-11-29 19:57] VITALS: BP 176/90; PULSE 125; O2SAT 98; BMI 37.8
[2023-11-29 20:05] VITALS: BP 150/88; PULSE 116; RESP 18; TEMP 36.8; O2SAT 98
--- NOTE | 2023-11-29 20:08 | PC.NURSE ---
denies SI/ self harm / HI today. States only complaint is dizziness and fall
[2023-11-29 20:25] LABS: Appearance Urine Clear; Color Urine Yellow; Glucose Urine UA Negative (Negative); Leukocyte Esterase Urine Trace (Negative); Nitrite Urine Negative (Negative); PH 5.5 (5.0-9.0); UMIC TRIGGER UACC YES; Urine Blood Large (3+) (Negative); Urine Ketones Trace mg/dL (Negative); Urine Protein Negative (Neg-Trace)
[2023-11-29 20:28] LABS: Bacteria Urine None Seen (None Seen); Hyaline Casts Urine 0-2 /LPF (0-2); RBC Urine >20 /HPF (0-2); Squamous Epithelial Cell Urine 0-2 /HPF (0-2); WBC Urine 0-5 /HPF (0-5)
[2023-11-29 20:34] LABS: MANUAL DIFF FLAG NO
[2023-11-29 20:36] LABS: Basophils Percent Auto 0.5 % (0-2); Eosinophils Absolute Auto 0.1 X10*3/uL (0.0-0.4); Eosinophils Percent Auto 1.6 % (0-4); Hematocrit 28.1 % (37.0-47.0); Hemoglobin 8.9 g/dl (12.0-16.0); Imm Gran Abs Auto 0.03 X10*3/uL (0.00-0.03); Imm Gran Pct Auto 0.3 % (0.0-0.4); Lymphocytes Absolute Auto 1.5 X10*3/uL (1.2-4.9); Lymphocytes Percent Auto 16.5 % (20-40); Mean Corpuscular HGB Conc 31.7 g/dl (31.0-35.0); Mean Corpuscular Volume 82.2 fL (80.0-98.0); Mean Platelet Volume 9.7 fL (9.4-12.3); Monocytes Absolute Auto 0.7 X10*3/uL (0.1-1.2); Monocytes Percent Auto 8.1 % (2-11); Neutrophils Absolute Auto 6.5 x10*3/uL (2.0-8.3); Platelet Count 326 X10*3/uL (160-400); Red Blood Count 3.42 X10*6/uL (4.20-5.50); Red Cell Distribution Width 14.9 % (11.0-16.0); White Blood Count 8.9 X10*3/uL (4.8-10.8)
[2023-11-29] MEDS: Meclizine HCl 25 MG TABLET 50 MG PO (20:40)
[2023-11-29 20:58] LABS: Alanine Aminotransferase 12 U/L (0-31); Albumin Level 4.2 g/dL (3.5-5.0); Alkaline Phosphatase 108 U/L (39-117); Anion Gap 18 (12-20); Aspartate Amino Transferase 15 U/L (5-31); Bilirubin Total 0.1 mg/dL (0.0-1.0); Blood Urea Nitrogen 19 mg/dL (9-16); Calcium 9.3 mg/dL (8.4-10.2); Carbon Dioxide 19 mmol/L (22-29); Chloride 105 mmol/L (96-108); Creatinine Clr Calc Pharmacy 101.9; Estimated Glomerular Filt Rate > 60; Glucose Random 150 mg/dL (60-115); Magnesium 1.7 mg/dL (1.6-2.6); Potassium 3.8 mmol/L (3.3-5.1); Sodium 138 mmol/L (135-145); Total Protein 6.5 g/dL (6.5-8.0)
[2023-11-29 20:59] LABS: Troponin-I High Sensitivity 6.8 ng/L (<3.5-17.0)
[2023-11-29 21:00] LABS: HCG Quantitative < 2 mIU/mL
--- NOTE | 2023-11-29 21:39 | ED.DIZZY ---
HPI - Dizziness General Chief Complaint: Dizziness Stated Complaint: dizzy episode resulting in fall, headstrike, -thin Time Seen by Provider: 11/29/23 19:43 Source: patient Mode of arrival: EMS Limitations: no limitations History of Present Illness HPI Narrative: Patient comes in the emergency room complaining of an episode of dizziness consisting of the room spinning. Patient states that she has had vertigo in the past and she had an episode prior to arrival. Patient states that she fell due to the dizziness and injured her left ankle. Patient complaining of pain on the medial aspect of the left ankle. Patient denies hitting her head or losing consciousness, patient is not on blood thinners. Patient states that she is able to ambulate. At this time, patient states that she feels much better than earlier today. Patient denies chest pain or shortness of breath Related Data Home Medications Medication Instructions Recorded Confirmed fluoxetine 40 mg capsule 80 mg PO DAILY 08/25/23 11/29/23 lorazepam 0.5 mg tablet 0.5 mg PO BID PRN Anxiety 08/31/23 11/29/23 albuterol sulfate 90 mcg/actuation 2 inh inhalation Q4H PRN Shortness 09/17/23 11/29/23 aerosol inhaler (Ventolin HFA) Of Breath Or Wheezing famotidine 10 mg tablet 10 mg PO BID@0630,1630 09/17/23 11/29/23 montelukast 10 mg tablet 10 mg PO BEDTIME 09/17/23 11/29/23 atorvastatin 10 mg tablet 10 mg PO DAILY 10/04/23 11/29/23 benztropine 1 mg tablet 1 mg PO BID 10/04/23 11/29/23 metformin 500 mg tablet 500 mg PO BID 10/04/23 11/29/23 mirtazapine 7.5 mg tablet 7.5 mg PO BEDTIME 10/04/23 11/29/23 pantoprazole 40 mg tablet,delayed 40 mg PO DAILY@0630 10/04/23 11/29/23 release trazodone 150 mg tablet 150 mg PO BEDTIME 10/04/23 11/29/23 buspirone 15 mg tablet 15 mg PO DAILY 11/18/23 11/29/23 fluticasone 250 mcg-salmeterol 50 1 ea inhalation BID 11/18/23 11/29/23 mcg/dose blistr powdr for inhalation lisinopril 5 mg tablet 5 mg PO DAILY blood pressure 11/18/23 11/29/23 prazosin 2 mg capsule 4 mg PO BEDTIME 11/18/23 11/29/23 Previous Rx's Medication Instructions Recorded clozapine 100 mg tablet 100 mg PO BEDTIME 30 days #30 tabs 11/29/23 haloperidol 5 mg tablet 5 mg PO TID@0900,1530,2100 30 days 11/29/23 #90 tabs lactulose 20 gram/30 mL oral 20 g (30 mL) PO DAILY PRN 11/29/23 solution constipation 30 days #1,200 mL meclizine 50 mg tablet 50 mg PO BID PRN dizziness #10 tabs 11/29/23 Allergies Allergy/AdvReac Type Severity Reaction Status Date / Time azithromycin [AZITHROMYCIN] Allergy Severe Rash Verified 11/09/23 18:02 Fish Containing Products Allergy Severe Anaphylaxis Verified 11/09/23 18:02 codeine [Codeine] Allergy Intermediate Rash Verified 11/09/23 18:02 Penicillins Allergy Intermediate Rash Verified 11/09/23 18:02 prednisone [Prednisone] Allergy Intermediate Rash Verified 11/09/23 18:02 Sulfa (Sulfonamide Allergy Intermediate Rash Verified 11/09/23 18:02 Antibiotics) [Sulfa (Sulfonamides)] ziprasidone [From Geodon] Allergy Intermediate dysuria, Verified 11/09/23 18:02 rash Review of Systems Review of Systems: Constitutional : No Weight loss, No Fever, No Chills, No Night Sweats, No Fatigue, No Malaise ENT/Mouth : No Hearing loss, No Ear Pain, No Nasal Congestion, No Sinus Pain, No Hoarseness, No sore throat, No Rhinorrhea, No Swallowing Difficulty Eyes: No Eye Pain, No Swelling, No Redness, No Foreign Body, No Discharge, No Vision Changes Cardiovascular : No Chest Pain, No SOB, No Dyspnea on Exertion, No Orthopnea, No Edema, No Palpitations Respiratory : No Cough, No Sputum, No Wheezing, No Smoke Exposure, No Dyspnea Gastrointestinal : No Nausea, No Vomiting, No Diarrhea, No Constipation, No abdominal Pain, No Hematochezia, No Melena Genitourinary : no irregular bleeding, No Dysuria, No Urinary Frequency, No Hematuria, No Urinary Incontinence, No Urgency, No Flank Pain, No Urinary Flow Changes, No Hesitancy Musculoskeletal : Complaining of left ankle pain No Myalgias, No Joint Swelling Skin : No Skin Lesions, No rash Neuro : No Weakness, No Numbness, No Paresthesias, No Loss of Consciousness, no headache, complaining of dizziness that self-resolved. Psych : No Anxiety/Panic, No Depression, No SI/HI/AH/VH, No Social Issues, Heme/Lymph: No Bruising, No Bleeding,No Lymphadenopathy Endocrine : No Polyuria, No Polydipsia, No Temperature Intolerance [facility] Past Medical History Medical History Suicidal ideation MDD (major depressive disorder), recurrent episode, severe Chest pain Acute anxiety COVID-19 Full body hives Major depression Dizziness Suicide attempt UTI (urinary tract infection) Acetaminophen overdose COVID History of attempted suicide History of non-suicidal self-harm Hypomagnesemia Suicide attempt Suicide attempt by acetaminophen overdose Acetaminophen overdose Depression Diabetes type 2, controlled Borderline personality disorder PTSD (post-traumatic stress disorder) Overdose GERD (gastroesophageal reflux disease) Mood disorder Hyperlipidemia Bronchitis Social History Social History Household Members: None Household Members Other:: snf Housing: Other Housing Other:: Residential Do you presently have visiting nurse or other home services: No Unable to assess alcohol history related to: Unknown Alcohol intake: current Alcohol intake frequency: does not drink Comment: sitter in room Patient Tobacco Use Status: Former Tobacco user Quit Date: NA Tobacco use type: Cigarette Cigarette Packs Per Day: 1 Cigarettes Per Day: 20.0 Years Smoked: 22 e-Cigarette/Vaping Use: Never Used Second Hand Smoke Exposure: No Substance Use Type: Marijuana Advance Directives: No Advance Directives Information Provided: No service: No Current occupational status: unemployed and disabled Sexual orientation: Straight/Heterosexual Physical Exam Vital Signs: Vital Signs: Last Vital Signs Temp 98.2 F 11/29/23 20:05 Pulse 116 H 11/29/23 20:05 Resp 18 11/29/23 20:05 BP 150/88 H 11/29/23 20:05 Pulse Ox 98 11/29/23 20:05 O2 Del Method Room Air 11/29/23 20:05 BMI result Body Mass Index 37.8 Const: Other: Appearance: Alert. Oriented X3. No acute distress. Eyes: Pupils equal, round and reactive to light. ENT: Pharynx normal. Neck: Normal inspection. Neck supple. No lymph nodes noted. No crepitus CVS: Normal heart rate and rhythm. Pulses normal. Normal S1 and S2 Respiratory: No respiratory distress. Breath sounds normal. No Wheezing. No rales Abdomen: Soft and nontender. No rigidity. No distention. Skin: Skin warm and dry. Normal skin color. Normal skin turgor. Extremities: In the left ankle medial aspect on the lateral malleolus, there is a bit of swelling, lateral malleolus within normal limits, no pain to palpation. Patient is ambulatory, limping but able to bear weight Neuro: Oriented X 3. No motor deficit. No sensory deficit. Moving all extremities. No slurred speech. CN 2 through 12 grossly intact Psych: calm, cooperative, normal affect Medications Administered Discontinued Medications Generic Name Dose Route Start Last Admin Trade Name Freq PRN Reason Stop Dose Admin Meclizine HCl 50 mg 11/29/23 20:32 11/29/23 20:40 Meclizine Hcl 25 Mg Tablet PO 11/29/23 20:33 50 mg ONCE ONE Administration Medical Decision Making Medical Decision Making [facility] Narrative: My interpretation of labs: Hematology and chemistry at baseline, troponin negative. Patient has blood in the urine, no UTI symptoms, likely menstruating -my interpretation of x-ray of the ankle: Soft tissue swelling present above the medial malleolus, normal bone alignment -at this time, patient feels better, no chest pain or shortness of breath, ambulatory. Patient likely had episodes of vertigo. Patient was provided with a dose of meclizine -today, patient has no psychiatric complaints including suicidal or homicidal ideation Differential Diagnosis Differential Diagnoses: The differential diagnosis associated with the presentation includes (Vertigo, mechanical fall, orthostatic hypotension) Admission/Observation Consideration of admission/observation: Escalation of care including admission/observation considered (Given patient's initial presentation, admission was considered) Lab Data [facility] Lab Attestation statement: I reviewed the patient's lab results. 11/29/23 20:16 11/29/23 20:16 Labs: Lab Results 11/29/23 11/29/23 11/29/23 Range/Units 20:16 20:16 20:16 WBC 8.9 (4.8-10.8) X10*3/uL RBC 3.42 L (4.20-5.50) X10*6/uL Hgb 8.9 L (12.0-16.0) g/dl Hct 28.1 L (37.0-47.0) % MCV 82.2 (80.0-98.0) fL MCH 26.0 L (27.0-33.0) pg MCHC 31.7 (31.0-35.0) g/dl RDW 14.9 (11.0-16.0) % Plt Count 326 (160-400) X10*3/uL MPV 9.7 (9.4-12.3) fL Immature Gran % (Auto) 0.3 (0.0-0.4) % Neut % (Auto) 73.0 (45-73) % Lymph % (Auto) 16.5 L (20-40) % Chase % (Auto) 8.1 (2-11) % Eos % (Auto) 1.6 (0-4) % Baso % (Auto) 0.5 (0-2) % Lymph # (Auto) 1.5 (1.2-4.9) X10*3/uL Chase # (Auto) 0.7 (0.1-1.2) X10*3/uL Eos # (Auto) 0.1 (0.0-0.4) X10*3/uL Baso # (Auto) 0.0 (0.0-0.2) X10*3/uL Abs Immat Gran (auto) 0.03 (0.00-0.03) X10*3/uL Absolute Neuts (auto) 6.5 (2.0-8.3) x10*3/uL Absolute Nucleated RBC 0.000 (0.0-0.012) X10*3/uL Nucleated RBC % (auto) 0.0 (0.0-0.2) /100WBC Sodium Cancelled 138 Potassium Cancelled 3.8 Chloride Cancelled Carbon Dioxide Anion Gap BUN Creatinine Estim Creat Clear Calc Estimated GFR Random Glucose Calcium Magnesium (1.6-2.6) mg/dL Total Bilirubin AST ALT Alkaline Phosphatase Troponin I High Sens (<3.5-17.0) ng/L Total Protein Albumin Beta HCG, Quant mIU/mL Urine Color Urine Appearance Urine pH (5.0-9.0) Ur Specific [place] (1.005-1.025) Urine Protein (Neg-Trace) mg/dL Urine Glucose (UA) (Negative) mg/dL Urine Ketones (Negative) mg/dL Urine Blood (Negative) Urine Nitrite (Negative) Ur Leukocyte Esterase (Negative) Urine RBC (0-2) /HPF Urine WBC (0-5) /HPF Ur Squamous Epith Cells (0-2) /HPF Urine Bacteria (None Seen) Hyaline Casts (0-2) /LPF 11/29/23 11/29/23 11/29/23 Range/Units 20:16 20:16 20:16 WBC (4.8-10.8) X10*3/uL RBC (4.20-5.50) X10*6/uL Hgb (12.0-16.0) g/dl Hct (37.0-47.0) % MCV (80.0-98.0) fL MCH (27.0-33.0) pg MCHC (31.0-35.0) g/dl RDW (11.0-16.0) % Plt Count (160-400) X10*3/uL MPV (9.4-12.3) fL Immature Gran % (Auto) (0.0-0.4) % Neut % (Auto) (45-73) % Lymph % (Auto) (20-40) % Chase % (Auto) (2-11) % Eos % (Auto) (0-4) % Baso % (Auto) (0-2) % Lymph # (Auto) (1.2-4.9) X10*3/uL [place] # (Auto) (0.1-1.2) X10*3/uL Eos # (Auto) (0.0-0.4) X10*3/uL Baso # (Auto) (0.0-0.2) X10*3/uL Abs Immat Gran (auto) (0.00-0.03) X10*3/uL Absolute Neuts (auto) (2.0-8.3) x10*3/uL Absolute Nucleated RBC (0.0-0.012) X10*3/uL Nucleated RBC % (auto) (0.0-0.2) /100WBC Sodium Potassium Chloride 105 Carbon Dioxide Cancelled 19 L Anion Gap Cancelled 18 BUN Cancelled Creatinine Estim Creat Clear Calc Estimated GFR Random Glucose Calcium Magnesium (1.6-2.6) mg/dL Total Bilirubin AST ALT Alkaline Phosphatase Troponin I High Sens (<3.5-17.0) ng/L Total Protein Albumin Beta HCG, Quant mIU/mL Urine Color Urine Appearance Urine pH (5.0-9.0) Ur Specific [place] (1.005-1.025) Urine Protein (Neg-Trace) mg/dL Urine Glucose (UA) (Negative) mg/dL Urine Ketones (Negative) mg/dL Urine Blood (Negative) Urine Nitrite (Negative) Ur Leukocyte Esterase (Negative) Urine RBC (0-2) /HPF Urine WBC (0-5) /HPF Ur Squamous Epith Cells (0-2) /HPF Urine Bacteria (None Seen) Hyaline Casts (0-2) /LPF 11/29/23 11/29/23 11/29/23 Range/Units 20:16 20:16 20:16 WBC (4.8-10.8) X10*3/uL RBC (4.20-5.50) X10*6/uL Hgb (12.0-16.0) g/dl Hct (37.0-47.0) % MCV (80.0-98.0) fL MCH (27.0-33.0) pg MCHC (31.0-35.0) g/dl RDW (11.0-16.0) % Plt Count (160-400) X10*3/uL MPV (9.4-12.3) fL Immature Gran % (Auto) (0.0-0.4) % Neut % (Auto) (45-73) % Lymph % (Auto) (20-40) % Chase % (Auto) (2-11) % Eos % (Auto) (0-4) % Baso % (Auto) (0-2) % Lymph # (Auto) (1.2-4.9) X10*3/uL [place] # (Auto) (0.1-1.2) X10*3/uL Eos # (Auto) (0.0-0.4) X10*3/uL Baso # (Auto) (0.0-0.2) X10*3/uL Abs Immat Gran (auto) (0.00-0.03) X10*3/uL Absolute Neuts (auto) (2.0-8.3) x10*3/uL Absolute Nucleated RBC (0.0-0.012) X10*3/uL Nucleated RBC % (auto) (0.0-0.2) /100WBC Sodium Potassium Chloride Carbon Dioxide Anion Gap BUN 19 H Creatinine Cancelled 0.80 Estim Creat Clear Calc Cancelled 101.9 Estimated GFR Cancelled Random Glucose Calcium Magnesium (1.6-2.6) mg/dL Total Bilirubin AST ALT Alkaline Phosphatase Troponin I High Sens (<3.5-17.0) ng/L Total Protein Albumin Beta HCG, Quant mIU/mL Urine Color Urine Appearance Urine pH (5.0-9.0) Ur Specific [place] (1.005-1.025) Urine Protein (Neg-Trace) mg/dL Urine Glucose (UA) (Negative) mg/dL Urine Ketones (Negative) mg/dL Urine Blood (Negative) Urine Nitrite (Negative) Ur Leukocyte Esterase (Negative) Urine RBC (0-2) /HPF Urine WBC (0-5) /HPF Ur Squamous Epith Cells (0-2) /HPF Urine Bacteria (None Seen) Hyaline Casts (0-2) /LPF 11/29/23 11/29/23 11/29/23 Range/Units 20:16 20:16 20:16 WBC (4.8-10.8) X10*3/uL RBC (4.20-5.50) X10*6/uL Hgb (12.0-16.0) g/dl Hct (37.0-47.0) % MCV (80.0-98.0) fL MCH (27.0-33.0) pg MCHC (31.0-35.0) g/dl RDW (11.0-16.0) % Plt Count (160-400) X10*3/uL MPV (9.4-12.3) fL Immature Gran % (Auto) (0.0-0.4) % Neut % (Auto) (45-73) % Lymph % (Auto) (20-40) % Chase % (Auto) (2-11) % Eos % (Auto) (0-4) % Baso % (Auto) (0-2) % Lymph # (Auto) (1.2-4.9) X10*3/uL [place] # (Auto) (0.1-1.2) X10*3/uL Eos # (Auto) (0.0-0.4) X10*3/uL Baso # (Auto) (0.0-0.2) X10*3/uL Abs Immat Gran (auto) (0.00-0.03) X10*3/uL Absolute Neuts (auto) (2.0-8.3) x10*3/uL Absolute Nucleated RBC (0.0-0.012) X10*3/uL Nucleated RBC % (auto) (0.0-0.2) /100WBC Sodium Potassium Chloride Carbon Dioxide Anion Gap BUN Creatinine Estim Creat Clear Calc Estimated GFR > 60 Random Glucose Cancelled 150 H Calcium Cancelled 9.3 D Magnesium 1.7 (1.6-2.6) mg/dL Total Bilirubin Cancelled AST ALT Alkaline Phosphatase Troponin I High Sens (<3.5-17.0) ng/L Total Protein Albumin Beta HCG, Quant mIU/mL Urine Color Urine Appearance Urine pH (5.0-9.0) Ur Specific [place] (1.005-1.025) Urine Protein (Neg-Trace) mg/dL Urine Glucose (UA) (Negative) mg/dL Urine Ketones (Negative) mg/dL Urine Blood (Negative) Urine Nitrite (Negative) Ur Leukocyte Esterase (Negative) Urine RBC (0-2) /HPF Urine WBC (0-5) /HPF Ur Squamous Epith Cells (0-2) /HPF Urine Bacteria (None Seen) Hyaline Casts (0-2) /LPF 11/29/23 11/29/23 11/29/23 Range/Units 20:16 20:16 20:16 WBC (4.8-10.8) X10*3/uL RBC (4.20-5.50) X10*6/uL Hgb (12.0-16.0) g/dl Hct (37.0-47.0) % MCV (80.0-98.0) fL MCH (27.0-33.0) pg MCHC (31.0-35.0) g/dl RDW (11.0-16.0) % Plt Count (160-400) X10*3/uL MPV (9.4-12.3) fL Immature Gran % (Auto) (0.0-0.4) % Neut % (Auto) (45-73) % Lymph % (Auto) (20-40) % [place] % (Auto) (2-11) % Eos % (Auto) (0-4) % Baso % (Auto) (0-2) % Lymph # (Auto) (1.2-4.9) X10*3/uL [place] # (Auto) (0.1-1.2) X10*3/uL Eos # (Auto) (0.0-0.4) X10*3/uL Baso # (Auto) (0.0-0.2) X10*3/uL Abs Immat Gran (auto) (0.00-0.03) X10*3/uL Absolute Neuts (auto) (2.0-8.3) x10*3/uL Absolute Nucleated RBC (0.0-0.012) X10*3/uL Nucleated RBC % (auto) (0.0-0.2) /100WBC Sodium Potassium Chloride Carbon Dioxide Anion Gap BUN Creatinine Estim Creat Clear Calc Estimated GFR Random Glucose Calcium Magnesium (1.6-2.6) mg/dL Total Bilirubin 0.1 AST Cancelled 15 ALT Cancelled 12 Alkaline Phosphatase Cancelled Troponin I High Sens (<3.5-17.0) ng/L Total Protein Albumin Beta HCG, Quant mIU/mL Urine Color Urine Appearance Urine pH (5.0-9.0) Ur Specific [place] (1.005-1.025) Urine Protein (Neg-Trace) mg/dL Urine Glucose (UA) (Negative) mg/dL Urine Ketones (Negative) mg/dL Urine Blood (Negative) Urine Nitrite (Negative) Ur Leukocyte Esterase (Negative) Urine RBC (0-2) /HPF Urine WBC (0-5) /HPF Ur Squamous Epith Cells (0-2) /HPF Urine Bacteria (None Seen) Hyaline Casts (0-2) /LPF 11/29/23 11/29/23 11/29/23 Range/Units 20:16 20:16 20:16 WBC (4.8-10.8) X10*3/uL RBC (4.20-5.50) X10*6/uL Hgb (12.0-16.0) g/dl Hct (37.0-47.0) % MCV (80.0-98.0) fL MCH (27.0-33.0) pg MCHC (31.0-35.0) g/dl RDW (11.0-16.0) % Plt Count (160-400) X10*3/uL MPV (9.4-12.3) fL Immature Gran % (Auto) (0.0-0.4) % Neut % (Auto) (45-73) % Lymph % (Auto) (20-40) % [place] % (Auto) (2-11) % Eos % (Auto) (0-4) % Baso % (Auto) (0-2) % Lymph # (Auto) (1.2-4.9) X10*3/uL [place] # (Auto) (0.1-1.2) X10*3/uL Eos # (Auto) (0.0-0.4) X10*3/uL Baso # (Auto) (0.0-0.2) X10*3/uL Abs Immat Gran (auto) (0.00-0.03) X10*3/uL Absolute Neuts (auto) (2.0-8.3) x10*3/uL Absolute Nucleated RBC (0.0-0.012) X10*3/uL Nucleated RBC % (auto) (0.0-0.2) /100WBC Sodium Potassium Chloride Carbon Dioxide Anion Gap BUN Creatinine Estim Creat Clear Calc Estimated GFR Random Glucose Calcium Magnesium (1.6-2.6) mg/dL Total Bilirubin AST ALT Alkaline Phosphatase 108 Troponin I High Sens 6.8 D (<3.5-17.0) ng/L Total Protein Cancelled 6.5 Albumin Cancelled 4.2 Beta HCG, Quant < 2 mIU/mL Urine Color Yellow Urine Appearance Clear Urine pH 5.5 (5.0-9.0) Ur Specific [place] 1.020 (1.005-1.025) Urine Protein Negative (Neg-Trace) mg/dL Urine Glucose (UA) Negative (Negative) mg/dL Urine Ketones Trace (Negative) mg/dL Urine Blood Large (3+) H (Negative) Urine Nitrite Negative (Negative) Ur Leukocyte Esterase Trace H (Negative) Urine RBC >20 H (0-2) /HPF Urine WBC 0-5 (0-5) /HPF Ur Squamous Epith Cells 0-2 (0-2) /HPF Urine Bacteria None Seen (None Seen) Hyaline Casts 0-2 (0-2) /LPF Independent Interpretation I performed an independent interpretation of an: EKG (My interpretation of EKG, sinus rhythm, 117, no ST segment depression or elevation, no T-wave inversion, QTC 479) and Plain X-Ray Radiology Impression Discussion of test interpretation with radiology: I have reviewed the radiologist's reading. Radiologist Impression: No displaced fracture. No dislocation. Bony prominence at the medial aspect of the navicula which could represent an accessory ossicle versus remote avulsion injury. No concerning lytic or blastic osseous lesion. Ankle mortise is maintained. Mild medial soft tissue swelling. Small plantar calcaneal spur. XR/XR ankle LT min 3V IMPRESSION: 1. Mild medial soft tissue swelling. No acute fracture or dislocation. 2. Bony prominence at the medial aspect of the navicula which could represent an accessory ossicle versus remote avulsion injury. Critical Care Time Critical Care Time Critical Care Time: Yes Total Critical Care Time: 30 Attestation: I have personally provided critical care time. Time includes review of lab data, radiology results, discussion with consultants, and monitoring for potential decompensation. Intervention performed as documented. Discharge Plan Discharge Clinical Impression: Vertigo, Ankle sprain Patient Disposition: Home, Self-Care Instructions: Sprain (ED), Vertigo (ED), R.I.C.E. Treatment (ED) Additional Instructions: Please follow-up with your primary care physician tomorrow. If you have any worsening or new symptoms, please return to the emergency room or call 911 Prescriptions: New meclizine 50 mg tablet 50 mg PO BID PRN (Reason: dizziness) Qty: 10 0RF No Action fluoxetine 40 mg capsule 80 mg PO DAILY lorazepam 0.5 mg tablet 0.5 mg PO BID PRN (Reason: Anxiety) fluticasone propion-salmeterol 250-50 mcg/dose blister with device 1 ea inhalation BID buspirone 15 mg tablet 15 mg PO DAILY lisinopril 5 mg tablet 5 mg PO DAILY prazosin 2 mg capsule 4 mg PO BEDTIME clozapine 100 mg Tablet 100 mg PO BEDTIME 30 Days Qty: 30 0RF haloperidol 5 mg Tablet 5 mg PO TID@0900,1530,2100 30 Days Qty: 90 0RF lactulose 20 gram/30 mL Solution 20 g PO DAILY PRN (Reason: constipation) 30 Days Qty: 1200 0RF famotidine 10 mg Tablet 10 mg PO BID@0630,1630 albuterol sulfate [Ventolin HFA] 90 mcg/actuation HFA aerosol inhaler 2 inh inhalation Q4H PRN (Reason: Shortness Of Breath Or Wheezing) montelukast 10 mg tablet 10 mg PO BEDTIME metformin 500 mg tablet 500 mg PO BID atorvastatin 10 mg tablet 10 mg PO DAILY pantoprazole 40 mg tablet,delayed release (DR/EC) 40 mg PO DAILY@0630 trazodone 150 mg tablet 150 mg PO BEDTIME benztropine 1 mg tablet 1 mg PO BID mirtazapine 7.5 mg tablet 7.5 mg PO BEDTIME
[2023-11-29 21:48] VITALS: BP 151/91; PULSE 109
--- NOTE | 2023-11-29 21:50 | PHA.MEDREC ---
Pharmacy Consult ? Medication Reconciliation Pharmacy has completed the medication reconciliation. Patient discharge from today 12/09, utilized claim history for med rec. Marj BonillaD
--- NOTE | 2023-11-29 23:14 | PC.NURSE ---
pt does not have a ride home and does not qualify for ambulance, messaged supervisor matrix for possible lyft
[2023-11-29 23:19] VITALS: BP 160/91; PULSE 119
[2023-11-29 23:20] VITALS: BP 152/87; PULSE 123
== END 2023-11-30 00:16 | disposition home or self-care (01) ==
PROVIDERS: Emergency Provider Emergency Medicine; PCP Nurse Practitioner Family
DX: R42 Dizziness and giddiness (principal); S93.492A Sprain of other ligament of left ankle, initial encounter; W18.39XA Other fall on same level, initial encounter; E11.9 Type 2 diabetes mellitus without complications; Z79.84 Long term (current) use of oral hypoglycemic drugs; Y93.9 Activity, unspecified; Y92.049 Unspecified place in boarding-house as the place of occurrence of the external cause; Y99.9 Unspecified external cause status
CPT/HCPCS: 36415; 73610; 80053; 81001; 83735; 84484; 84702; 85025; 93005; 99283; 99285

== ENCOUNTER → 2023-11-29 20:08 | Outpatient (BNV) | payer MEDICARE, MEDICAID, SELFPAY | PROVIDERS: Emergency Provider Emergency Medicine; PCP Nurse Practitioner Family; Visit Provider Internal Medicine Cardiovascular Disease | DX: R00.0 Tachycardia, unspecified (principal) | CPT/HCPCS: 93010 ==

== ENCOUNTER 2023-12-04 13:17 | Outpatient (REF) | payer MEDICARE, MEDICAID, SELFPAY ==
[2023-12-04 14:03] LABS: Neut%MD 69.8 %; WBCANC 7.2 X10*3/uL
== END 2023-12-04 13:18 | disposition home or self-care (01) ==
LOC: HO.LAB 13:17
PROVIDERS: PCP Nurse Practitioner Family; Visit Provider Psychiatry & Neurology Psychiatry
DX: Z51.81 Encounter for therapeutic drug level monitoring (principal); Z79.899 Other long term (current) drug therapy
CPT/HCPCS: 36415; 85048

== ENCOUNTER 2023-12-05 16:21 | Emergency (ER) | payer MEDICARE, MEDICAID, SELFPAY ==
[2023-12-05 16:34] VITALS: BP 140/90; BP 143/88; PULSE 110; PULSE 122; RESP 18; TEMP 36.3; O2SAT 99; BMI 38.8
--- NOTE | 2023-12-05 16:42 | ECG_ITS ---
Test Reason : CHEST PAIN Blood Pressure : / mmHG Vent. Rate : 114 BPM Atrial Rate : 114 BPM P-R Int : 162 ms QRS Dur : 080 ms QT Int : 354 ms P-R-T Axes : 051 032 056 degrees QTc Int : 487 ms Sinus tachycardia Otherwise normal ECG When compared with ECG of 29-NOV-2023 20:08, No significant change was found Referred By: Alicja Wilcox Electronically Signed By:DONALD HOOKER MD
--- NOTE | 2023-12-05 16:42 | ED_ITS ---
HPI - General Adult General Chief complaint: General Medical Stated complaint: ELEVATED HR Time Seen by Provider: 12/05/23 16:42 Source: patient, EMS and RN notes reviewed Mode of arrival: EMS Limitations: no limitations History of Present Illness HPI narrative: Patient is a 47-year-old female with history of MDD, PTSD, borderline personality disorder, T2 DM, GERD, HLD presenting to the emergency department with complaint of feeling lightheaded and tachycardic after chain smoking 3 packs of cigarettes prior to arrival. She states that she smokes at baseline but typically does not change smoke 3 packs at a time. Also complains of nausea. Reports she did have an episode of vomiting yesterday. Denies any abdominal pain. Denies chest pain, shortness of breath, fevers. Patient has a history of intentional ingestion, denies ingesting any medications prior to arrival. Denies any suicidal or homicidal ideation. MD complaint: Tachycardia, nausea Onset (ago): minute(s) Associated symptoms: nausea/vomiting Treatments prior to arrival: none Related Data Home Medications Medication Instructions Recorded Confirmed fluoxetine 40 mg capsule 80 mg PO DAILY 08/25/23 11/29/23 lorazepam 0.5 mg tablet 0.5 mg PO BID PRN Anxiety 08/31/23 11/29/23 albuterol sulfate 90 mcg/actuation 2 inh inhalation Q4H PRN Shortness 09/17/23 11/29/23 aerosol inhaler (Ventolin HFA) Of Breath Or Wheezing famotidine 10 mg tablet 10 mg PO BID@0630,1630 09/17/23 11/29/23 montelukast 10 mg tablet 10 mg PO BEDTIME 09/17/23 11/29/23 atorvastatin 10 mg tablet 10 mg PO DAILY 10/04/23 11/29/23 benztropine 1 mg tablet 1 mg PO BID 10/04/23 11/29/23 metformin 500 mg tablet 500 mg PO BID 10/04/23 11/29/23 mirtazapine 7.5 mg tablet 7.5 mg PO BEDTIME 10/04/23 11/29/23 pantoprazole 40 mg tablet,delayed 40 mg PO DAILY@0630 10/04/23 11/29/23 release trazodone 150 mg tablet 150 mg PO BEDTIME 10/04/23 11/29/23 buspirone 15 mg tablet 15 mg PO DAILY 11/18/23 11/29/23 fluticasone 250 mcg-salmeterol 50 1 ea inhalation BID 11/18/23 11/29/23 mcg/dose blistr powdr for inhalation lisinopril 5 mg tablet 5 mg PO DAILY blood pressure 11/18/23 11/29/23 prazosin 2 mg capsule 4 mg PO BEDTIME 11/18/23 11/29/23 Previous Rx's Medication Instructions Recorded clozapine 100 mg tablet 100 mg PO BEDTIME 30 days #30 tabs 11/29/23 haloperidol 5 mg tablet 5 mg PO TID@0900,1530,2100 30 days 11/29/23 #90 tabs lactulose 20 gram/30 mL oral 20 g (30 mL) PO DAILY PRN 11/29/23 solution constipation 30 days #1,200 mL meclizine 50 mg tablet 50 mg PO BID PRN dizziness #10 tabs 11/29/23 Allergies Allergy/AdvReac Type Severity Reaction Status Date / Time azithromycin [AZITHROMYCIN] Allergy Severe Rash Verified 11/09/23 18:02 Fish Containing Products Allergy Severe Anaphylaxis Verified 11/09/23 18:02 codeine [Codeine] Allergy Intermediate Rash Verified 11/09/23 18:02 Penicillins Allergy Intermediate Rash Verified 11/09/23 18:02 prednisone [Prednisone] Allergy Intermediate Rash Verified 11/09/23 18:02 Sulfa (Sulfonamide Allergy Intermediate Rash Verified 11/09/23 18:02 Antibiotics) [Sulfa (Sulfonamides)] ziprasidone [From Geodon] Allergy Intermediate dysuria, Verified 11/09/23 18:02 rash Review of Systems Review of Systems: As per HPI. Yes all other systems are reviewed and are negative Constitutional: Constitutional: Reports as per HPI PMF Past Medical History Medical History Suicidal ideation MDD (major depressive disorder), recurrent episode, severe Chest pain Acute anxiety COVID-19 Full body hives Major depression Dizziness Suicide attempt UTI (urinary tract infection) Acetaminophen overdose COVID History of attempted suicide History of non-suicidal self-harm Hypomagnesemia Suicide attempt Suicide attempt by acetaminophen overdose Acetaminophen overdose Depression Diabetes type 2, controlled Borderline personality disorder PTSD (post-traumatic stress disorder) Overdose GERD (gastroesophageal reflux disease) Mood disorder Hyperlipidemia Bronchitis Social History Social History Household Members: None Household Members Other:: skilled nursing Housing: Other Housing Other:: Halfway Do you presently have visiting nurse or other home services: No Unable to assess alcohol history related to: Unknown Alcohol intake: current Alcohol intake frequency: does not drink Comment: sitter in room Patient Tobacco Use Status: Former Tobacco user Quit Date: NA Tobacco use type: Cigarette Cigarette Packs Per Day: 1 Cigarettes Per Day: 20.0 Years Smoked: 22 e-Cigarette/Vaping Use: Never Used Second Hand Smoke Exposure: No Substance Use Type: Marijuana Advance Directives: No Advance Directives Information Provided: No service: No Current occupational status: unemployed and disabled Sexual orientation: Straight/Heterosexual Physical Exam ED Vital Signs: Vital Signs - 24 hr 12/05/23 16:34 12/05/23 19:57 Temperature 97.3 F 98.6 F Pulse Rate 122 H 116 H Respiratory Rate 18 20 Blood Pressure 143/88 H 149/93 H Pulse Oximetry 99 97 Oxygen Delivery Method Room Air Room Air BMI result Body Mass Index 38.8 Vital signs have been reviewed and appear to be correct. Blood pressure elevated. Heart rate tachycaridc. Respiratory rate normal. Temperature normal. Oxygen saturation normal. Const General: cooperative, healthy appearing and no acute distress Orientation/consciousness: oriented to person, oriented to place, oriented to time and patient oriented x3 Limitations: no limitations HENMT Head: Yes normocephalic and Yes atraumatic Ears: external ears normal General nose exam: Normal external nose present Face and sinus: Yes face symmetric Mouth: oropharynx normal and moist mucous membranes Throat: Yes uvula midline Eyes Pupils: Equal, round and reactive pupils present Neck Neck: Yes normal visual inspection and Yes supple Resp Effort & Inspection: normal respiratory effort and able to speak in complete sentences Auscultation: clear to auscultation bilaterally Cardio Rate: tachycardic Rhythm: regular rhythm Heart sounds: S1 normal heart sound present and S2 normal heart sound present Bruits: no abdominal aortic bruits Peripheral pulses: Peripheral pulses 2+ throughout GI Palpation (GI): No Abdominal aortic bruit present, Soft to palpation and nontender Auscultation: normoactive bowel sounds General: Yes no CVA tenderness Back/Spine/Pelvis Back: no CVA tenderness Skin General skin exam: elasticity normal and turgor normal Neuro General: oriented to person, oriented to place, oriented to time, patient oriented x3, moves all extremities, no focal motor deficits and CN's II-XI intact bilaterally Cranial nerves: Yes Equal, round and reactive pupils present Cognition (Neuro): normal cognition Extrem General: Yes full ROM, Yes no pedal edema and Yes no calf tenderness Psych Mental Status: mental status grossly normal Affect: normal affect Thought process: Normal thought process present Course Course Course Narrative: -1944--COVID/flu/RSV negative. CARE team consult cancelled, patient denies SI/HI. Tachycardia mildly improved prior to discharge. On vital sign review patient acute on chronically tachycardic. > CARE team will provide patient transportation back to skilled nursing Results discussed with patient including worrisome signs and symptoms and strict return precautions, and when to return to the emergency department. They verbalized understanding and feel safe for discharge at this time. Medical Decision Making Medical Decision Making MDM Narrative: Patient is a 47-year-old female with history of MDD, PTSD, borderline personality disorder, T2 DM, GERD, HLD presenting to the emergency department with complaint of feeling lightheaded and tachycardic after chain smoking 3 pa cks of cigarettes prior to arrival. On exam patient is awake, A+Ox3, mildly tachycardic, VS otherwise WNL, afebrile, normal neurological exam without focal deficits, physical exam findings as above. Given reported symptoms and physical exam findings, initial differential includes nicotine poisoning, viral illness, dysrhythmia. EKG shows sinus tachycardia, similar to prior EKGs. 18:10 Patient now reporting that she is having auditory hallucinations to harm herself but not to kill herself, pharmacist in charge owner notified, will order CARE team eval. Patient signed out to [facility] pending viral swabs and CARE team evaluation. Patient drinking PO fluids at this time. Differential Diagnosis Differential Diagnoses: The differential diagnosis associated with the presentation includes As per MDM. Admission/Observation Consideration of admission/observation: Escalation of care including admission/observation considered Consult Healthcare Provider Management of the patient was discussed with: Behavioral Health Provider Lab Data Labs: Lab Results 12/05/23 Range/Units 18:34 Influenza Type A (PCR) NEGATIVE (Negative) Influenza Type B (PCR) NEGATIVE (Negative) RSV RNA Qual (PCR) NEGATIVE (Negative) SARS-CoV-2 RNA (RT-PCR) NEGATIVE (Negative) Independent Interpretation I performed an independent interpretation of an: EKG (Sinus tachycardia, rate 114 beats per minute, normal OR interval, slightly prolonged QTC, similar to prior) External Record Review External record reviewed: Inpatient record, Office record and Outpatient record Discharge Plan Discharge Clinical Impression: Tachycardia Patient Disposition: Xfer to Respite Facility Transfer Details: skilled nursing Instructions: Tachycardia (ED) Additional Instructions: Please continue all your home prescribed medications. You tested negative for COVID, flu, RSV Please follow-up with her doctor If you have thoughts of hurting herself or others return to the ED Prescriptions: No Action fluoxetine 40 mg capsule 80 mg PO DAILY lorazepam 0.5 mg tablet 0.5 mg PO BID PRN (Reason: Anxiety) fluticasone propion-salmeterol 250-50 mcg/dose blister with device 1 ea inhalation BID buspirone 15 mg tablet 15 mg PO DAILY lisinopril 5 mg tablet 5 mg PO DAILY prazosin 2 mg capsule 4 mg PO BEDTIME clozapine 100 mg Tablet 100 mg PO BEDTIME 30 Days Qty: 30 0RF haloperidol 5 mg Tablet 5 mg PO TID@0900,1530,2100 30 Days Qty: 90 0RF lactulose 20 gram/30 mL Solution 20 g PO DAILY PRN (Reason: constipation) 30 Days Qty: 1200 0RF famotidine 10 mg Tablet 10 mg PO BID@0630,1630 albuterol sulfate [Ventolin HFA] 90 mcg/actuation HFA aerosol inhaler 2 inh inhalation Q4H PRN (Reason: Shortness Of Breath Or Wheezing) montelukast 10 mg tablet 10 mg PO BEDTIME metformin 500 mg tablet 500 mg PO BID atorvastatin 10 mg tablet 10 mg PO DAILY pantoprazole 40 mg tablet,delayed release (DR/EC) 40 mg PO DAILY@0630 trazodone 150 mg tablet 150 mg PO BEDTIME benztropine 1 mg tablet 1 mg PO BID mirtazapine 7.5 mg tablet 7.5 mg PO BEDTIME meclizine 50 mg tablet 50 mg PO BID PRN (Reason: dizziness) Qty: 10 0RF Referrals: [facility] [Provider Group] Maribel Marquez NP [Primary Care Provider] - 2 days
--- NOTE | 2023-12-05 18:18 | PC.NURSE ---
rehabilitation program coordinator Pt over to assess states to this RN hearing voices however no thoughts of SI and also reports physically feeling better. CARE team to speak with pt prior to d/c to clear, pt aware. octaviano jha given. Alicja BARAHONA aware.
[2023-12-05 19:27] LABS: Influenza A PCR NEGATIVE (Negative); Influenza B PCR NEGATIVE (Negative); Resp Syncy Virus RNA Qual PCR NEGATIVE (Negative); SARS COV2 PCR INHOUSE NEGATIVE (Negative)
--- NOTE | 2023-12-05 19:36 | PC.NURSE ---
this rn assumed care of pt, pt in room at this time, no acute distress noted. pt has 1:1 sitter for safety.
[2023-12-05 19:57] VITALS: BP 149/93; PULSE 116; RESP 20; TEMP 37; O2SAT 97
--- NOTE | 2023-12-05 20:17 | PC.NURSE ---
care team at bedside to provider pt with lyft information. pt ambulated with steady gait to waiting room.
== END 2023-12-05 20:18 ==
PROVIDERS: Registered Nurse Emergency; Emergency Provider Emergency Medicine Emergency Medical Services; PCP Nurse Practitioner Family
DX: R00.0 Tachycardia, unspecified (principal); R11.2 Nausea with vomiting, unspecified; Z11.52 Encounter for screening for COVID-19; Z20.828 Contact with and (suspected) exposure to other viral communicable diseases; F33.2 Major depressive disorder, recurrent severe without psychotic features; R45.851 Suicidal ideations; F41.9 Anxiety disorder, unspecified; F43.10 Post-traumatic stress disorder, unspecified; F60.3 Borderline personality disorder; E11.9 Type 2 diabetes mellitus without complications; E78.5 Hyperlipidemia, unspecified; K21.9 Gastro-esophageal reflux disease without esophagitis; F17.210 Nicotine dependence, cigarettes, uncomplicated; Z91.52 Personal history of nonsuicidal self-harm; Z91.51 Personal history of suicidal behavior; Z79.02 Long term (current) use of antithrombotics/antiplatelets; Z79.84 Long term (current) use of oral hypoglycemic drugs
CPT/HCPCS: 0241U; 93005; 99284

== ENCOUNTER → 2023-12-05 16:42 | Outpatient (BNV) | payer MEDICARE, MEDICAID, SELFPAY | PROVIDERS: Emergency Provider Emergency Medicine Emergency Medical Services; PCP Nurse Practitioner Family; Visit Provider Internal Medicine Cardiovascular Disease | DX: R07.9 Chest pain, unspecified (principal) | CPT/HCPCS: 93010 ==

== ENCOUNTER 2023-12-06 17:29 | Emergency (ER) | payer MEDICARE, MEDICAID, SELFPAY ==
[2023-12-06 17:39] VITALS: BP 156/77; PULSE 133; RESP 16; TEMP 36.6; O2SAT 98; BMI 38.8
--- NOTE | 2023-12-06 18:00 | ED.GENADULT ---
HPI - General Adult General Chief complaint: Psychiatric Symptoms Stated complaint: SI, hearing voices telling her to kill herself Time Seen by Provider: 12/06/23 17:30 Source: patient, RN notes reviewed and old records reviewed Mode of arrival: ambulatory Limitations: no limitations History of Present Illness HPI narrative: 47-year-old female past medical history significant for schizoaffective disorder presents for evaluation of ?hearing voices. ? Patient states that she was feeling anxious when she woke up this morning. She states that she has been hearing voices. She reports the voices have ?been told me to go to [facility] and overdose. ? Patient reports that she has a no trespass from [facility] previous suicide attempts She denies ingesting anything outside of her prescribed medications today She has no other complaints or concerns at this time Denies any headache, chest pain, shortness of breath, abdominal pain, nausea ,vomiting Related Data Home Medications Medication Instructions Recorded Confirmed fluoxetine 40 mg capsule 80 mg PO DAILY 08/25/23 11/29/23 lorazepam 0.5 mg tablet 0.5 mg PO BID PRN Anxiety 08/31/23 11/29/23 albuterol sulfate 90 mcg/actuation 2 inh inhalation Q4H PRN Shortness 09/17/23 11/29/23 aerosol inhaler (Ventolin HFA) Of Breath Or Wheezing famotidine 10 mg tablet 10 mg PO BID@0630,1630 09/17/23 11/29/23 montelukast 10 mg tablet 10 mg PO BEDTIME 09/17/23 11/29/23 atorvastatin 10 mg tablet 10 mg PO DAILY 10/04/23 11/29/23 benztropine 1 mg tablet 1 mg PO BID 10/04/23 11/29/23 metformin 500 mg tablet 500 mg PO BID 10/04/23 11/29/23 mirtazapine 7.5 mg tablet 7.5 mg PO BEDTIME 10/04/23 11/29/23 pantoprazole 40 mg tablet,delayed 40 mg PO DAILY@0630 10/04/23 11/29/23 release trazodone 150 mg tablet 150 mg PO BEDTIME 10/04/23 11/29/23 buspirone 15 mg tablet 15 mg PO DAILY 11/18/23 11/29/23 fluticasone 250 mcg-salmeterol 50 1 ea inhalation BID 11/18/23 11/29/23 mcg/dose blistr powdr for inhalation lisinopril 5 mg tablet 5 mg PO DAILY blood pressure 11/18/23 11/29/23 prazosin 2 mg capsule 4 mg PO BEDTIME 11/18/23 11/29/23 Previous Rx's Medication Instructions Recorded clozapine 100 mg tablet 100 mg PO BEDTIME 30 days #30 tabs 11/29/23 haloperidol 5 mg tablet 5 mg PO TID@0900,1530,2100 30 days 11/29/23 #90 tabs lactulose 20 gram/30 mL oral 20 g (30 mL) PO DAILY PRN 11/29/23 solution constipation 30 days #1,200 mL meclizine 50 mg tablet 50 mg PO BID PRN dizziness #10 tabs 11/29/23 Allergies Allergy/AdvReac Type Severity Reaction Status Date / Time azithromycin [AZITHROMYCIN] Allergy Severe Rash Verified 11/09/23 18:02 Fish Containing Products Allergy Severe Anaphylaxis Verified 11/09/23 18:02 codeine [Codeine] Allergy Intermediate Rash Verified 11/09/23 18:02 Penicillins Allergy Intermediate Rash Verified 11/09/23 18:02 prednisone [Prednisone] Allergy Intermediate Rash Verified 11/09/23 18:02 Sulfa (Sulfonamide Allergy Intermediate Rash Verified 11/09/23 18:02 Antibiotics) [Sulfa (Sulfonamides)] ziprasidone [From Geodon] Allergy Intermediate dysuria, Verified 11/09/23 18:02 rash Review of Systems Constitutional: Constitutional: Denies body ache(s), Denies chills, Denies fever(s), Denies headache(s) and Denies weakness Eyes: Eyes: Denies blurry vision ENT: Denies headache(s) Cardiovascular: Cardiovascular: Denies chest pain and Denies dyspnea Respiratory: Respiratory: Denies cough and Denies dyspnea Gastrointestinal: Gastrointestinal: Denies abdominal pain, Denies nausea and Denies vomiting Musculoskeletal: Musculoskeletal: Denies back pain Integumentary/Breasts: Skin/Breast: Denies rash Neurologic: Denies headache(s) and Denies weakness Psychiatric: Psychiatric: Denies anxiety, Reports depression, Reports auditory hallucinations and Reports suicidal ideation PMFSH Past Medical History Medical History Suicidal ideation MDD (major depressive disorder), recurrent episode, severe Chest pain Acute anxiety COVID-19 Full body hives Major depression Dizziness Suicide attempt UTI (urinary tract infection) Acetaminophen overdose COVID History of attempted suicide History of non-suicidal self-harm Hypomagnesemia Suicide attempt Suicide attempt by acetaminophen overdose Acetaminophen overdose Depression Diabetes type 2, controlled Borderline personality disorder PTSD (post-traumatic stress disorder) Overdose GERD (gastroesophageal reflux disease) Mood disorder Hyperlipidemia Bronchitis Social History Social History Household Members: None Household Members Other:: fdc Housing: Other Housing Other:: Long Term Do you presently have visiting nurse or other home services: No Unable to assess alcohol history related to: Unknown Alcohol intake: never Comment: sitter in room Patient Tobacco Use Status: Former Tobacco user Quit Date: NA Tobacco use type: Cigarette Cigarette Packs Per Day: 1 Cigarettes Per Day: 20.0 Years Smoked: 22 Smoked in Last 30 Days: Yes e-Cigarette/Vaping Use: Never Used Second Hand Smoke Exposure: No Use of substances other than those prescribed or required for medical reasons: No Substance Use Type: Marijuana service: No Current occupational status: unemployed and disabled Sexual orientation: Straight/Heterosexual Physical Exam ED Vital Signs: Vital Signs - 24 hr 12/06/23 17:39 Temperature 98 F Pulse Rate 133 H Respiratory Rate 16 Blood Pressure 156/77 H Pulse Oximetry 98 Oxygen Delivery Method Room Air BMI result Body Mass Index 38.8 Const General: healthy appearing, comfortable, no acute distress, alert and awake Nutritional Appearance: well nourished Orientation/consciousness: patient oriented x3 HENMT Head: Yes normocephalic and Yes atraumatic Eyes Eyelids: Yes eyelids normal Conjunctivae: conjunctivae normal Sclerae: sclerae normal Corneas: corneas normal Pupils: Equal, round and reactive pupils present EOM: EOMs intact bilaterally Neck Neck: Yes full ROM Resp Effort & Inspection: normal respiratory effort, able to speak in complete sentences and not labored GI Inspection: No distended Palpation (GI): Soft to palpation, not firm, nontender, no guarding and not rigid Skin General skin exam: elasticity normal Neuro General: patient oriented x3 Cranial nerves: Yes Equal, round and reactive pupils present and Yes Bilaterally intact EOM present Cognition (Neuro): normal cognition Extrem Other: Moving all extremities well without any obvious deformities Course Reevaluation(s) Reevaluation #1: Patient reports feeling much better after being fed in receiving lorazepam 1 mg p.o. patient is requesting discharge to ?sleeping my own bed. ? Time: 18:25 Medications Administered Discontinued Medications Generic Name Dose Route Start Last Admin Trade Name Elmer PRN Reason Stop Dose Admin Lorazepam 1 mg 12/06/23 17:42 12/06/23 18:12 Lorazepam 1 Mg Tablet PO 12/06/23 17:43 1 mg ONCE ONE Administration Medical Decision Making Medical Decision Making [facility] Narrative: [age] female presents for evaluation of hearing voices. This is consistent baseline she reports she always hears voices but she states that she is having command hallucinations. She is very well known to our department for similar episodes in the past. She was seen here yesterday quite tachycardia. I reviewed her labs from 1 week ago which were consistent with mild anemia. Her CO2 was low at 19 which may have been related to hyperventilating. No electrolyte abnormalities. Plan to treat the patient's anxiety with Ativan 1 mg p.o. and re-evaluate. Will consider medical clearance for care to evaluation the patient does not improve. The patient adamantly denies ingesting anything or attempted to harm herself in any way Differential Diagnosis Differential Diagnoses: The differential diagnosis associated with the presentation includes Suicidal ideation Bipolar disorder Depression Auditory hallucinations Substance abuse Lab Data Labs: Lab Results 12/06/23 Range/Units 17:54 Urine Opiates Screen Not Detected (Not Detect) Urine Fentanyl Screen Not Detected (Not Detect) Ur Barbiturates Screen Not Detected (Not Detect) Ur Phencyclidine Scrn Not Detected (Not Detect) Ur Amphetamines Screen Not Detected (Not Detect) U Benzodiazepines Scrn Not Detected (Not Detect) Urine Cocaine Screen Not Detected (Not Detect) U Marijuana (THC) Screen Not Detected (Not Detect) Discharge Plan Discharge Clinical Impression: Schizoaffective disorder Patient Disposition: Home, Self-Care Instructions: Schizoaffective Disorder (ED) Additional Instructions: Take all of your medications as prescribed. Return for new or worsening symptoms Prescriptions: No Action fluoxetine 40 mg capsule 80 mg PO DAILY lorazepam 0.5 mg tablet 0.5 mg PO BID PRN (Reason: Anxiety) fluticasone propion-salmeterol 250-50 mcg/dose blister with device 1 ea inhalation BID buspirone 15 mg tablet 15 mg PO DAILY lisinopril 5 mg tablet 5 mg PO DAILY prazosin 2 mg capsule 4 mg PO BEDTIME clozapine 100 mg Tablet 100 mg PO BEDTIME 30 Days Qty: 30 0RF haloperidol 5 mg Tablet 5 mg PO TID@0900,1530,2100 30 Days Qty: 90 0RF lactulose 20 gram/30 mL Solution 20 g PO DAILY PRN (Reason: constipation) 30 Days Qty: 1200 0RF famotidine 10 mg Tablet 10 mg PO BID@0630,1630 albuterol sulfate [Ventolin HFA] 90 mcg/actuation HFA aerosol inhaler 2 inh inhalation Q4H PRN (Reason: Shortness Of Breath Or Wheezing) montelukast 10 mg tablet 10 mg PO BEDTIME metformin 500 mg tablet 500 mg PO BID atorvastatin 10 mg tablet 10 mg PO DAILY pantoprazole 40 mg tablet,delayed release (DR/EC) 40 mg PO DAILY@0630 trazodone 150 mg tablet 150 mg PO BEDTIME benztropine 1 mg tablet 1 mg PO BID mirtazapine 7.5 mg tablet 7.5 mg PO BEDTIME meclizine 50 mg tablet 50 mg PO BID PRN (Reason: dizziness) Qty: 10 0RF Interventions: [place]-Suicide Risk Severity Scale Last Done: 12/06/23 18:13
[2023-12-06 18:09] LABS: Amphetamine Screen Urine Not Detected (Not Detect); Barbiturates, Urine Not Detected (Not Detect); Benzodiazepines Screen Urine Not Detected (Not Detect); Cannabinoid Screen Urine Not Detected (Not Detect); Cocaine Screen Urine Not Detected (Not Detect); Fentanyl, urine Not Detected (Not Detect); Opiate Screen Urine Not Detected (Not Detect); Phencyclidine Screen Urine Not Detected (Not Detect)
[2023-12-06] MEDS: LORazepam 1 MG TABLET PO (18:12)
== END 2023-12-06 18:41 | disposition home or self-care (01) ==
LOC: HO.ED 18:35
PROVIDERS: Physician Assistant; Emergency Provider Internal Medicine
DX: F25.1 Schizoaffective disorder, depressive type (principal); R45.851 Suicidal ideations; F41.9 Anxiety disorder, unspecified; Z79.899 Other long term (current) drug therapy
CPT/HCPCS: 80307; 99284; S9485

== ENCOUNTER 2023-12-07 17:43 | Emergency (ER) | payer MEDICARE, MEDICAID, SELFPAY ==
--- NOTE | ~2023-12-07 | XR_ITS ---
EXAMINATION: X-ray thoracic spine X-ray lumbar spine CLINICAL INFORMATION: Fall COMPARISON: None TECHNIQUE: Thoracic spine 3 views. Lumbar spine 3 views. FINDINGS: Thoracic spine: The upper thoracic vertebral bodies are obscured on the lateral projection by overlapping osseous structures. In the visualized thoracic spine, there is normal alignment. In the visualized thoracic spine, the vertebral body heights are maintained. No acute fractures seen. Mild degenerative spurring the lower thoracic spine. Lumbar spine: Alignment is anatomic. Vertebral body heights are maintained. No acute fractures seen. Disc spaces are maintained. No abnormal soft tissue calcification. Nonobstructive bowel gas pattern. XR/XR lumbar spine 2-3V IMPRESSION: Thoracic spine: The upper thoracic spine is obscured, suboptimally evaluated. The visualized mid to lower thoracic spine, no evidence of acute fracture. Lumbar spine: No radiographic evidence of acute fracture or subluxation.
--- NOTE | ~2023-12-07 | CT_ITS ---
EXAMINATION: CT head/brain wo IV con CLINICAL INFORMATION: Reason for Exam fall COMPARISON: CT head without contrast 07/21/2023 TECHNIQUE: Contiguous axial imaging was performed from the skull base to vertex without intravenous contrast. Sagittal and coronal reformatted images were obtained. This CT examination was performed using dose optimization techniques as appropriate, variously including the following: * Automated exposure control * Adjustment of mA and/or kV according to patient size (this includes techniques or standardized protocols for targeted exams where dose is matched to indication/reason for exam; i.e. extremities or head) Use of iterative reconstruction technique DLP: 556.21 mGy-cm FINDINGS: No acute osseous or soft tissue abnormality. The mastoids are clear. Ethmoid sinus mucosal thickening. There is no evidence of acute intracranial hemorrhage or territorial infarction. No abnormal mass effect or midline shift is seen. [place] to white matter differentiation is well preserved. No extra-axial fluid collections are identified. No hydrocephalus. No significant volume loss. There is no abnormal attenuation within the brain parenchyma. CT/CT head/brain wo IV con IMPRESSION: No acute intracranial abnormality including hemorrhage, mass effect, hydrocephalus, or acute territorial edematous infarction.
--- NOTE | ~2023-12-07 | XR_ITS ---
EXAMINATION: X-ray thoracic spine X-ray lumbar spine CLINICAL INFORMATION: Fall COMPARISON: None TECHNIQUE: Thoracic spine 3 views. Lumbar spine 3 views. FINDINGS: Thoracic spine: The upper thoracic vertebral bodies are obscured on the lateral projection by overlapping osseous structures. In the visualized thoracic spine, there is normal alignment. In the visualized thoracic spine, the vertebral body heights are maintained. No acute fractures seen. Mild degenerative spurring the lower thoracic spine. Lumbar spine: Alignment is anatomic. Vertebral body heights are maintained. No acute fractures seen. Disc spaces are maintained. No abnormal soft tissue calcification. Nonobstructive bowel gas pattern. XR/XR thoracic spine 2V IMPRESSION: Thoracic spine: The upper thoracic spine is obscured, suboptimally evaluated. The visualized mid to lower thoracic spine, no evidence of acute fracture. Lumbar spine: No radiographic evidence of acute fracture or subluxation.
--- NOTE | 2023-12-07 17:57 | ECG_ITS ---
Test Reason : FALL Blood Pressure : / mmHG Vent. Rate : 114 BPM Atrial Rate : 114 BPM P-R Int : 158 ms QRS Dur : 080 ms QT Int : 332 ms P-R-T Axes : 054 027 056 degrees QTc Int : 457 ms Sinus tachycardia Possible Left atrial enlargement Borderline ECG When compared with ECG of 05-DEC-2023 17:52, No significant change was found Referred By: Milton Stevens Electronically Signed By:DONALD HOOKER MD
[2023-12-07 18:02] VITALS: BP 164/87; BP 180/100; PULSE 112; PULSE 113; RESP 20; TEMP 37.3; O2SAT 96; BMI 57.8
--- NOTE | 2023-12-07 18:41 | ED_ITS ---
HPI - General Adult General Chief complaint: Fall Stated complaint: FROM [facility], FELL FROM STANDING,DIZZY,BACK PAIN Time Seen by Provider: 12/07/23 17:48 Source: patient, RN notes reviewed and old records reviewed Mode of arrival: ambulatory Limitations: no limitations History of Present Illness HPI narrative: 47-year-old female presents for evaluation of dizziness and fall. Patient is well-known to this emergency room in mostly for bipolar disorder and suicidal ideation. 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 ? She reports striking the back of her head and also complains of back pain due to the fall She complains of 10/10 pain to her back Denies any numbness, tingling, weakness, bladder or bowel incontinence Related Data Home Medications Medication Instructions Recorded Confirmed fluoxetine 40 mg capsule 80 mg PO DAILY 08/25/23 11/29/23 lorazepam 0.5 mg tablet 0.5 mg PO BID PRN Anxiety 08/31/23 11/29/23 albuterol sulfate 90 mcg/actuation 2 inh inhalation Q4H PRN Shortness 09/17/23 11/29/23 aerosol inhaler (Ventolin HFA) Of Breath Or Wheezing famotidine 10 mg tablet 10 mg PO BID@0630,1630 09/17/23 11/29/23 montelukast 10 mg tablet 10 mg PO BEDTIME 09/17/23 11/29/23 atorvastatin 10 mg tablet 10 mg PO DAILY 10/04/23 11/29/23 benztropine 1 mg tablet 1 mg PO BID 10/04/23 11/29/23 metformin 500 mg tablet 500 mg PO BID 10/04/23 11/29/23 mirtazapine 7.5 mg tablet 7.5 mg PO BEDTIME 10/04/23 11/29/23 pantoprazole 40 mg tablet,delayed 40 mg PO DAILY@0630 10/04/23 11/29/23 release trazodone 150 mg tablet 150 mg PO BEDTIME 10/04/23 11/29/23 buspirone 15 mg tablet 15 mg PO DAILY 11/18/23 11/29/23 fluticasone 250 mcg-salmeterol 50 1 ea inhalation BID 11/18/23 11/29/23 mcg/dose blistr powdr for inhalation lisinopril 5 mg tablet 5 mg PO DAILY blood pressure 11/18/23 11/29/23 prazosin 2 mg capsule 4 mg PO BEDTIME 11/18/23 11/29/23 Previous Rx's Medication Instructions Recorded clozapine 100 mg tablet 100 mg PO BEDTIME 30 days #30 tabs 11/29/23 haloperidol 5 mg tablet 5 mg PO TID@0900,1530,2100 30 days 11/29/23 #90 tabs lactulose 20 gram/30 mL oral 20 g (30 mL) PO DAILY PRN 11/29/23 solution constipation 30 days #1,200 mL meclizine 50 mg tablet 50 mg PO BID PRN dizziness #10 tabs 11/29/23 Allergies Allergy/AdvReac Type Severity Reaction Status Date / Time azithromycin [AZITHROMYCIN] Allergy Severe Rash Verified 11/09/23 18:02 Fish Containing Products Allergy Severe Anaphylaxis Verified 11/09/23 18:02 codeine [Codeine] Allergy Intermediate Rash Verified 11/09/23 18:02 Penicillins Allergy Intermediate Rash Verified 11/09/23 18:02 prednisone [Prednisone] Allergy Intermediate Rash Verified 11/09/23 18:02 Sulfa (Sulfonamide Allergy Intermediate Rash Verified 11/09/23 18:02 Antibiotics) [Sulfa (Sulfonamides)] ziprasidone [From Geodon] Allergy Intermediate dysuria, Verified 11/09/23 18:02 rash Review of Systems 2 Constitutional: Constitutional: Denies chills, Denies fever(s), Denies frequent falls and Reports headache(s) Eyes: Eyes: Denies blurry vision ENT: Reports vertigo, Reports dizziness and Reports headache(s) Cardiovascular: Cardiovascular: Denies chest pain and Denies dyspnea Respiratory: Respiratory: Denies cough and Denies dyspnea Gastrointestinal: Gastrointestinal: Denies abdominal pain, Denies nausea and Denies vomiting Musculoskeletal: Musculoskeletal: Reports back pain Integumentary/Breasts: Skin/Breast: Denies rash Neurologic: Reports vertigo, Reports dizziness, Denies frequent falls and Reports headache(s) [facility] Past Medical History Medical History Suicidal ideation MDD (major depressive disorder), recurrent episode, severe Chest pain Acute anxiety COVID-19 Full body hives Major depression Dizziness Suicide attempt UTI (urinary tract infection) Acetaminophen overdose COVID History of attempted suicide History of non-suicidal self-harm Hypomagnesemia Suicide attempt Suicide attempt by acetaminophen overdose Acetaminophen overdose Depression Diabetes type 2, controlled Borderline personality disorder PTSD (post-traumatic stress disorder) Overdose GERD (gastroesophageal reflux disease) Mood disorder Hyperlipidemia Bronchitis Social History Social History Household Members: None Household Members Other:: skilled nursing Housing: Other Housing Other:: Intermediate Do you presently have visiting nurse or other home services: No Unable to assess alcohol history related to: Unknown Alcohol intake: never Comment: sitter in room Patient Tobacco Use Status: Former Tobacco user Quit Date: NA Tobacco use type: Cigarette Cigarette Packs Per Day: 1 Cigarettes Per Day: 20.0 Years Smoked: 22 Smoked in Last 30 Days: Yes e-Cigarette/Vaping Use: Never Used Second Hand Smoke Exposure: No Use of substances other than those prescribed or required for medical reasons: No Substance Use Type: Marijuana Advance Directives: No Advance Directives Information Provided: No Patient : No service: No Current occupational status: unemployed and disabled Sexual orientation: Straight/Heterosexual Physical Exam ED Vital Signs: Vital Signs - 24 hr 12/07/23 18:02 12/07/23 19:20 12/07/23 19:22 Temperature 99.1 F 98.2 F Pulse Rate 113 H 113 H 109 H Respiratory Rate 20 17 Blood Pressure 164/87 H 143/87 H 136/91 H Pulse Oximetry 96 98 Oxygen Delivery Method Room Air Room Air 12/07/23 19:24 12/07/23 19:26 Temperature Pulse Rate 107 H 115 H Respiratory Rate Blood Pressure 153/90 H 151/80 H Pulse Oximetry Oxygen Delivery Method BMI result Body Mass Index 57.8 Const Other: No obvious signs of trauma General: healthy appearing, comfortable, no acute distress, alert and awake Nutritional Appearance: well nourished Orientation/consciousness: patient oriented x3 HENMT Head: Yes normocephalic and Yes atraumatic Eyes Eyelids: Yes eyelids normal Conjunctivae: conjunctivae normal Sclerae: sclerae normal Corneas: corneas normal Pupils: Equal, round and reactive pupils present EOM: EOMs intact bilaterally Neck Neck: Yes full ROM Resp Effort & Inspection: normal respiratory effort, able to speak in complete sentences and not labored Cardio Rate: regular rate Rhythm: regular rhythm GI Inspection: No distended Palpation (GI): Soft to palpation, not firm, nontender, no guarding and not rigid Back/Spine/Pelvis Other: Tenderness along the entire thoracic and lumbar spine. No step-offs or deformities. No ecchymosis, no edema. Straight leg raise negative bilaterally Skin General skin exam: elasticity normal Neuro General: patient oriented x3 Cranial nerves: Yes CN's II-XII intact bilaterally, Yes Equal, round and reactive pupils present and Yes Bilaterally intact EOM present Cognition (Neuro): normal cognition Extrem Other: Moving all extremities well without any obvious deformities Course Reevaluation(s) Reevaluation #1: Patient's medical workup was significant for anemia with a hemoglobin 8.0. She appears to be trending downward with her last hemoglobin of 8.9. She denies any bleeding from anywhere including nosebleeds vaginal bleeding, rectal bleeding. I recommended a rectal exam with guaiac testing the patient refuses at this time. She reports feeling better and is currently asymptomatic. She states that she does have a history of vertigo and this felt similar. I advised the patient to follow-up with GI for a colonoscopy as it is unclear what the source of her anemia is. She does not require transfusion is hemodynamically stable. She will be discharged at this time Time: 21:43 Medical Decision Making Medical Decision Making [facility] Narrative: 47-year-old female presents for evaluation of headache and back pain after falling. She reports that she got dizzy when bending over. Plan for medical workup including EKG, orthostatic vital signs. Patient reports any voices and suicidal ideation, she does not have a plan. Will consider care team consult if she continues to experience she these thoughts after her medical clearance. The patient frequently requests these thoughts after she stays in the ER for a while and feels safe. The patient has no chest pain, EKG is sinus tachycardia rate of 114 beats minute. No ectopy significant arrhythmia outside I tachycardia. No ischemia. Cardiac etiology is favored to be less likely Differential Diagnosis Differential Diagnoses: The differential diagnosis associated with the presentation includes Orthostasis Vertigo Dizziness Intracranial hemorrhage less likely Compression fracture Back pain Contusion Bipolar disorder Admission/Observation Consideration of admission/observation: Escalation of care including admission/observation considered Consider admission for anemia, however the patient is hemodynamically stable and no obvious source of active bleeding Lab Data [facility] Lab Attestation statement: I reviewed the patient's lab results. No leukocytosis. The patient has anemia with hemoglobin 8.1 and hematocrit 26.6. No significant electrolyte abnormalities. 12/07/23 19:54 12/07/23 19:54 Labs: Lab Results 12/07/23 12/07/23 Range/Units 19:54 19:54 WBC 7.1 (4.8-10.8) X10*3/uL RBC 3.23 L (4.20-5.50) X10*6/uL Hgb 8.1 L (12.0-16.0) g/dl Hct 26.6 L (37.0-47.0) % MCV 82.4 (80.0-98.0) fL MCH 25.1 L (27.0-33.0) pg MCHC 30.5 L (31.0-35.0) g/dl RDW 15.5 (11.0-16.0) % Plt Count Not Reportable MPV 10.4 (9.4-12.3) fL Immature Gran % (Auto) 0.7 H (0.0-0.4) % Neut % (Auto) 64.9 (45-73) % Lymph % (Auto) 21.3 (20-40) % Rooks % (Auto) 7.9 (2-11) % Eos % (Auto) 4.8 H (0-4) % Baso % (Auto) 0.4 (0-2) % Lymph # (Auto) 1.5 (1.2-4.9) X10*3/uL Rooks # (Auto) 0.6 (0.1-1.2) X10*3/uL Eos # (Auto) 0.3 (0.0-0.4) X10*3/uL Baso # (Auto) 0.0 (0.0-0.2) X10*3/uL Abs Immat Gran (auto) 0.05 H (0.00-0.03) X10*3/uL Absolute Neuts (auto) 4.6 (2.0-8.3) x10*3/uL Absolute Nucleated RBC 0.000 (0.0-0.012) X10*3/uL Nucleated RBC % (auto) 0.0 (0.0-0.2) /100WBC Smear Tech's Comments VERIFIED Sodium 144 (135-145) mmol/L Potassium 3.6 (3.3-5.1) mmol/L Chloride 109 H (96-108) mmol/L Carbon Dioxide 25 (22-29) mmol/L Anion Gap 14 (12-20) BUN 11 (9-16) mg/dL Creatinine 0.76 (0.5-1.4) mg/dL Estim Creat Clear Calc 92.2 Estimated GFR > 60 Random Glucose 118 H (60-115) mg/dL Calcium 9.0 (8.4-10.2) mg/dL Total Bilirubin 0.2 (0.0-1.0) mg/dL AST 20 (5-31) U/L ALT 27 (0-31) U/L Alkaline Phosphatase 127 H (39-117) U/L Total Protein 6.7 (6.5-8.0) g/dL Albumin 4.1 (3.5-5.0) g/dL Lipase 16 (8-78) U/L Salicylates < 5.0 L (15-30) mg/dL Acetaminophen < 3 (<30) mcg/mL Ethyl Alcohol < 10 Cancelled mg/dL Independent Interpretation I performed an independent interpretation of an: EKG (See above) Discharge Plan Discharge Clinical Impression: Fall, Bipolar disorder, Dizziness, Anemia Patient Disposition: Home, Self-Care Instructions: Dizziness (ED), Anemia (ED) Additional Instructions: Your workup in the ER was significant for a mild anemia. Need to follow-up with a GI doctor for likely colonoscopy/endoscopy Return to the ER if you notice any black or bloody stool Return for any new or worsening symptoms Take all of your medications as prescribed Your x-rays and CT scan did not show any evidence of traumatic injury Prescriptions: No Action fluoxetine 40 mg capsule 80 mg PO DAILY lorazepam 0.5 mg tablet 0.5 mg PO BID PRN (Reason: Anxiety) fluticasone propion-salmeterol 250-50 mcg/dose blister with device 1 ea inhalation BID buspirone 15 mg tablet 15 mg PO DAILY lisinopril 5 mg tablet 5 mg PO DAILY prazosin 2 mg capsule 4 mg PO BEDTIME clozapine 100 mg Tablet 100 mg PO BEDTIME 30 Days Qty: 30 0RF haloperidol 5 mg Tablet 5 mg PO TID@0900,1530,2100 30 Days Qty: 90 0RF lactulose 20 gram/30 mL Solution 20 g PO DAILY PRN (Reason: constipation) 30 Days Qty: 1200 0RF famotidine 10 mg Tablet 10 mg PO BID@0630,1630 albuterol sulfate [Ventolin HFA] 90 mcg/actuation HFA aerosol inhaler 2 inh inhalation Q4H PRN (Reason: Shortness Of Breath Or Wheezing) montelukast 10 mg tablet 10 mg PO BEDTIME metformin 500 mg tablet 500 mg PO BID atorvastatin 10 mg tablet 10 mg PO DAILY pantoprazole 40 mg tablet,delayed release (DR/EC) 40 mg PO DAILY@0630 trazodone 150 mg tablet 150 mg PO BEDTIME benztropine 1 mg tablet 1 mg PO BID mirtazapine 7.5 mg tablet 7.5 mg PO BEDTIME meclizine 50 mg tablet 50 mg PO BID PRN (Reason: dizziness) Qty: 10 0RF Referrals: Zakiya Flores MD [Physician] - (anemia) Interventions: ED Discharge Assessment Last Done: 12/07/23 20:52 Discharge Date/Time: 12/07/23 20:54
[2023-12-07 19:20] VITALS: BP 143/87; PULSE 113; RESP 17; TEMP 36.8; O2SAT 98
[2023-12-07 19:22] VITALS: BP 136/91; PULSE 109
[2023-12-07 19:24] VITALS: BP 153/90; PULSE 107
[2023-12-07 19:26] VITALS: BP 151/80; PULSE 115
[2023-12-07 20:02] LABS: Basophils Percent Auto 0.4 % (0-2); Eosinophils Absolute Auto 0.3 X10*3/uL (0.0-0.4); Eosinophils Percent Auto 4.8 % (0-4); Hematocrit 26.6 % (37.0-47.0); Hemoglobin 8.1 g/dl (12.0-16.0); Imm Gran Abs Auto 0.05 X10*3/uL (0.00-0.03); Imm Gran Pct Auto 0.7 % (0.0-0.4); Lymphocytes Absolute Auto 1.5 X10*3/uL (1.2-4.9); Lymphocytes Percent Auto 21.3 % (20-40); MANUAL DIFF FLAG SCAN; Mean Corpuscular HGB Conc 30.5 g/dl (31.0-35.0); Mean Corpuscular Hemoglobin 25.1 pg (27.0-33.0); Mean Corpuscular Volume 82.4 fL (80.0-98.0); Mean Platelet Volume 10.4 fL (9.4-12.3); Monocytes Absolute Auto 0.6 X10*3/uL (0.1-1.2); Monocytes Percent Auto 7.9 % (2-11); Neutrophils Absolute Auto 4.6 x10*3/uL (2.0-8.3); Neutrophils Percent Auto 64.9 % (45-73); PLT CLUMP 1; Red Blood Count 3.23 X10*6/uL (4.20-5.50); Red Cell Distribution Width 15.5 % (11.0-16.0); SCAN SMEAR FLAG 1
[2023-12-07 20:13] LABS: Alanine Aminotransferase 27 U/L (0-31); Albumin Level 4.1 g/dL (3.5-5.0); Alkaline Phosphatase 127 U/L (39-117); Anion Gap 14 (12-20); Aspartate Amino Transferase 20 U/L (5-31); Bilirubin Total 0.2 mg/dL (0.0-1.0); Blood Urea Nitrogen 11 mg/dL (9-16); Carbon Dioxide 25 mmol/L (22-29); Chloride 109 mmol/L (96-108); Creatinine Clr Calc Pharmacy 92.2; Estimated Glomerular Filt Rate > 60; Glucose Random 118 mg/dL (60-115); Lipase 16 U/L (8-78); Potassium 3.6 mmol/L (3.3-5.1); Sodium 144 mmol/L (135-145); Total Protein 6.7 g/dL (6.5-8.0)
[2023-12-07 20:15] LABS: Acetaminophen LAB < 3 mcg/mL (<30); Salicylate < 5.0 mg/dL (15-30); White Blood Count 7.1 X10*3/uL (4.8-10.8)
[2023-12-07 20:18] LABS: SLIDE REVIEW VERIFIED
[2023-12-07 21:42] LABS: Ethanol < 10 mg/dL
== END 2023-12-07 20:54 | disposition home or self-care (01) ==
PROVIDERS: Physician Assistant; Emergency Provider Internal Medicine
DX: R42 Dizziness and giddiness (principal); M54.9 Dorsalgia, unspecified; S09.90XA Unspecified injury of head, initial encounter; W18.30XA Fall on same level, unspecified, initial encounter; Y93.9 Activity, unspecified; Y92.9 Unspecified place or not applicable; Y99.9 Unspecified external cause status; E11.9 Type 2 diabetes mellitus without complications; D64.9 Anemia, unspecified; F31.9 Bipolar disorder, unspecified; Z79.899 Other long term (current) drug therapy
CPT/HCPCS: 36415; 70450; 72070; 72100; 80053; 80143; 80179; 80307; 83690; 85025; 93005; 99284

== ENCOUNTER → 2023-12-07 17:57 | Outpatient (BNV) | payer MEDICARE, MEDICAID, SELFPAY | PROVIDERS: Emergency Provider Internal Medicine; Visit Provider Internal Medicine Cardiovascular Disease | DX: R00.0 Tachycardia, unspecified (principal) | CPT/HCPCS: 93010 ==

== ENCOUNTER 2023-12-11 12:51 | Outpatient (REF) | payer MEDICARE, MEDICAID, SELFPAY ==
[2023-12-11 13:09] LABS: MANUAL DIFF FLAG NO
[2023-12-11 13:49] LABS: Basophils Percent Auto 0.6 % (0-2); Eosinophils Absolute Auto 0.3 X10*3/uL (0.0-0.4); Eosinophils Percent Auto 4.7 % (0-4); Hematocrit 28.9 % (37.0-47.0); Hemoglobin 8.7 g/dl (12.0-16.0); Imm Gran Abs Auto 0.03 X10*3/uL (0.00-0.03); Imm Gran Pct Auto 0.4 % (0.0-0.4); Lymphocytes Absolute Auto 1.3 X10*3/uL (1.2-4.9); Lymphocytes Percent Auto 19.7 % (20-40); Mean Corpuscular HGB Conc 30.1 g/dl (31.0-35.0); Mean Corpuscular Hemoglobin 24.5 pg (27.0-33.0); Mean Corpuscular Volume 81.4 fL (80.0-98.0); Mean Platelet Volume 9.6 fL (9.4-12.3); Monocytes Absolute Auto 0.6 X10*3/uL (0.1-1.2); Monocytes Percent Auto 8.9 % (2-11); Neut%MD 65.7 %; Neutrophils Absolute Auto 4.4 x10*3/uL (2.0-8.3); Neutrophils Percent Auto 65.7 % (45-73); Platelet Count 382 X10*3/uL (160-400); Red Blood Count 3.55 X10*6/uL (4.20-5.50); Red Cell Distribution Width 15.3 % (11.0-16.0); WBCANC 6.7 X10*3/uL; White Blood Count 6.7 X10*3/uL (4.8-10.8)
== END 2023-12-11 12:52 | disposition home or self-care (01) ==
LOC: HO.LABR 12:51
PROVIDERS: PCP Nurse Practitioner Family; Visit Provider Psychiatry & Neurology Psychiatry
DX: Z79.899 Other long term (current) drug therapy (principal)
CPT/HCPCS: 36415; 85025

== ENCOUNTER 2023-12-12 16:57 | Emergency (ER) | payer MEDICARE, MEDICAID, SELFPAY ==
[2023-12-12 16:59] VITALS: BP 152/80; PULSE 107; RESP 16; TEMP 36.2; O2SAT 97; O2SAT 98; BMI 46.8
--- NOTE | 2023-12-12 17:20 | ED.GENADULT ---
HPI - General Adult General Chief complaint: Psychiatric Symptoms Stated complaint: CRISIS Time Seen by Provider: 12/12/23 17:07 Source: patient and EMS Mode of arrival: EMS Limitations: no limitations History of Present Illness HPI narrative: Patient is a 48 year old assigned female at with a history of PTSD and depression presenting to the emergency department today with increased auditory hallucinations and SI. Patient states that she is hearing more voices lately and is being told to cut herself. Patient denies any dizziness, lightheadedness, abdominal pain, nausea, vomiting, fever, chills, blurry vision, double vision, loss of vision, chest pain, difficulty breathing, shortness of breath, back pain, night sweats, pain with urination, increased urinary frequency, increased urinary urgency, blood in her urine or stool, syncope or a near syncopal episode, recent trauma or falls, bowel incontinence, bladder incontinence, bowel retention, bladder retention, or any other complaints at this time. Relieving factors: none Exacerbating factors: none Associated symptoms: denies other symptoms Treatments prior to arrival: none Related Data Home Medications Medication Instructions Recorded Confirmed fluoxetine 40 mg capsule 80 mg PO DAILY 08/25/23 11/29/23 lorazepam 0.5 mg tablet 0.5 mg PO BID PRN Anxiety 08/31/23 11/29/23 albuterol sulfate 90 mcg/actuation 2 inh inhalation Q4H PRN Shortness 09/17/23 11/29/23 aerosol inhaler (Ventolin HFA) Of Breath Or Wheezing famotidine 10 mg tablet 10 mg PO BID@0630,1630 09/17/23 11/29/23 montelukast 10 mg tablet 10 mg PO BEDTIME 09/17/23 11/29/23 atorvastatin 10 mg tablet 10 mg PO DAILY 10/04/23 11/29/23 benztropine 1 mg tablet 1 mg PO BID 10/04/23 11/29/23 metformin 500 mg tablet 500 mg PO BID 10/04/23 11/29/23 mirtazapine 7.5 mg tablet 7.5 mg PO BEDTIME 10/04/23 11/29/23 pantoprazole 40 mg tablet,delayed 40 mg PO DAILY@0630 10/04/23 11/29/23 release trazodone 150 mg tablet 150 mg PO BEDTIME 10/04/23 11/29/23 buspirone 15 mg tablet 15 mg PO DAILY 11/18/23 11/29/23 fluticasone 250 mcg-salmeterol 50 1 ea inhalation BID 11/18/23 11/29/23 mcg/dose blistr powdr for inhalation lisinopril 5 mg tablet 5 mg PO DAILY blood pressure 11/18/23 11/29/23 prazosin 2 mg capsule 4 mg PO BEDTIME 11/18/23 11/29/23 Previous Rx's Medication Instructions Recorded clozapine 100 mg tablet 100 mg PO BEDTIME 30 days #30 tabs 11/29/23 haloperidol 5 mg tablet 5 mg PO TID@0900,1530,2100 30 days 11/29/23 #90 tabs lactulose 20 gram/30 mL oral 20 g (30 mL) PO DAILY PRN 11/29/23 solution constipation 30 days #1,200 mL meclizine 50 mg tablet 50 mg PO BID PRN dizziness #10 tabs 11/29/23 Allergies Allergy/AdvReac Type Severity Reaction Status Date / Time azithromycin [AZITHROMYCIN] Allergy Severe Rash Verified 11/09/23 18:02 Fish Containing Products Allergy Severe Anaphylaxis Verified 11/09/23 18:02 codeine [Codeine] Allergy Intermediate Rash Verified 11/09/23 18:02 Penicillins Allergy Intermediate Rash Verified 11/09/23 18:02 prednisone [Prednisone] Allergy Intermediate Rash Verified 11/09/23 18:02 Sulfa (Sulfonamide Allergy Intermediate Rash Verified 11/09/23 18:02 Antibiotics) [Sulfa (Sulfonamides)] ziprasidone [From Geodon] Allergy Intermediate dysuria, Verified 11/09/23 18:02 rash Review of Systems Constitutional: Constitutional: Reports no additional constitutional complaints, Denies chills, Denies fever(s) and Denies night sweats Eyes: Eyes: Reports no additional eye complaints, Denies blurry vision, Denies change in vision, Denies diplopia, Denies eye discharge, Denies loss of vision and Denies eye pain ENT: Denies dizziness Cardiovascular: Cardiovascular: Reports no additional cardiovascular complaints, Denies chest pain, Denies lightheadedness, Denies Loss of Consciousness and Denies dyspnea Respiratory: Respiratory: Reports no additional respiratory complaints and Denies dyspnea Gastrointestinal: Gastrointestinal: Reports no additional gastrointestinal complaints, Denies abdominal pain, Denies melena, Denies hematochezia, Denies change in bowel habits and Denies change in stool character Genitourinary: Genitourinary: Denies hematuria, Denies urinary frequency, Denies dysuria, Denies urinary incontinence, Denies urinary hesitancy and Denies urinary urgency Musculoskeletal: Musculoskeletal: Reports no additional musculoskeletal complaints, Denies numbness and Denies tingling Neurologic: Denies dizziness, Denies loss of vision, Denies numbness and Denies tingling Psychiatric: Psychiatric: Reports depression, Reports auditory hallucinations, Denies homicidal ideation and Reports suicidal ideation Endocrine: Endocrine: Reports no additional endocrine complaints Hematologic/Lymphatic: Hematologic/Lymphatic: Reports no additional hematologic/lymphatic complaints Allergic/Immunologic: Allergic/Immunologic: Reports no additional allergic/immunologic complaints PMFSH Past Medical History Attestation statement: The following information was validated with the patient. Source: old records reviewed and nursing notes reviewed Medical History Suicidal ideation MDD (major depressive disorder), recurrent episode, severe Chest pain Acute anxiety COVID-19 Full body hives Major depression Dizziness Suicide attempt UTI (urinary tract infection) Acetaminophen overdose COVID History of attempted suicide History of non-suicidal self-harm Hypomagnesemia Suicide attempt Suicide attempt by acetaminophen overdose Acetaminophen overdose Depression Diabetes type 2, controlled Borderline personality disorder PTSD (post-traumatic stress disorder) Overdose GERD (gastroesophageal reflux disease) Mood disorder Hyperlipidemia Bronchitis Social History Social History Household Members: None Household Members Other:: [facility] Housing: Other Housing Other:: [facility] Do you presently have visiting nurse or other home services: No Unable to assess alcohol history related to: Unknown Alcohol intake: never Comment: sitter in room Patient Tobacco Use Status: Former Tobacco user Quit Date: NA Tobacco use type: Cigarette Cigarette Packs Per Day: 1 Cigarettes Per Day: 20.0 Years Smoked: 22 Smoked in Last 30 Days: Yes e-Cigarette/Vaping Use: Never Used Second Hand Smoke Exposure: No Use of substances other than those prescribed or required for medical reasons: No Substance Use Type: Marijuana Advance Directives: No Advance Directives Information Provided: No Patient : No service: No Current occupational status: unemployed and disabled Sexual orientation: Straight/Heterosexual Physical Exam ED Vital Signs: Vital Signs - 24 hr 12/12/23 16:59 12/12/23 17:44 Temperature 97.1 F Pulse Rate 107 H Respiratory Rate 16 16 Blood Pressure 152/80 H Pulse Oximetry 97 Oxygen Delivery Method Room Air BMI result Body Mass Index 46.8 Const General: cooperative, no acute distress, alert and awake Nutritional Appearance: well nourished Orientation/consciousness: patient oriented x3 Limitations: no limitations HENMT Head: Yes normal to inspection and Yes atraumatic Ears: hearing grossly normal bilaterally and external ears normal General nose exam: Normal external nose present, no nasal discharge noted and no epistaxis Face and sinus: Yes normal facial exam, No abrasion and No laceration Mouth: Normal oral and palatal mucosa present, no drooling and no muffled voice Eyes General: appearance normal, both eyes and all related structures Periorbital: periorbital findings normal Eyelids: Yes eyelids normal Conjunctivae: conjunctivae normal Pupils: Equal, round and reactive pupils present EOM: EOMs intact bilaterally Neck Neck: Yes normal visual inspection, Yes full ROM and Yes no lymphadenopathy Chest Chest palpation & inspection: normal inspection of the chest Resp Effort & Inspection: normal respiratory effort and able to speak in complete sentences GI Inspection: Yes normal to inspection Neuro General: patient oriented x3 and moves all extremities Cranial nerves: Yes Equal, round and reactive pupils present Cognition (Neuro): normal cognition Motor exam (neuro): 5/5 motor strength present throughout Sensory Exam: Normal double simultaneous stimulation for sensation Coordination: [id number] test normal Extrem General: Yes full ROM and Yes capillary refill normal Psych Appearance: grossly normal Mental Status: mental status grossly normal Affect: normal affect Attitude: cooperative Thought process: Normal thought process present Thought content: Normal thought content present Insight: Good insight present (Psych) Medical Decision Making Medical Decision Making MDM Narrative: Patient is a 48 year old assigned female at with a history of MDD presenting to the emergency department today with auditory hallucinations and SI. Patient's physical exam was unremarkable. Patient's blood work was unremarkable. Patient's urine showed no acute process. I explained my physical exam findings as well as all test results to the patient. I answered all questions asked by the patient. Patient requested to discharge and contracts for safety. CARE team agrees with discharge. I stressed the importance of the patient taking her medication as prescribed. I stressed the importance of the patient following up with her primary care provider. I stressed the importance of the patient returning to the emergency department immediately if her symptoms were to worsen or if [he/she/they] were to develop any dizziness, shortness of breath, difficulty breathing, chest pain, blurry vision, loss of vision, nausea, vomiting, abdominal pain, fever, chills, back pain, or any other complaints. Patient verbalized agreement and understanding with this treatment plan and discharge. Differential Diagnosis Differential Diagnoses: The differential diagnosis associated with the presentation includes SI Depression PTSD Admission/Observation Consideration of admission/observation: Escalation of care including admission/observation considered Patient would have been admitted to the hospital had her work up had any findings where hospital admission was appropriate and her clinical presentation warranted hospital admission. Consult Healthcare Provider Management of the patient was discussed with: Behavioral Health Provider (CARE team agrees with discharge.) Lab Data MDM Lab Attestation statement: I reviewed the patient's lab results. My interpretation of these results are in the MDM Rationale portion of this note. 12/12/23 17:39 12/12/23 17:39 Labs: Lab Results 12/12/23 12/12/23 12/12/23 Range/Units 17:18 17:21 17:39 WBC 8.8 (4.8-10.8) X10*3/uL RBC 3.67 L (4.20-5.50) X10*6/uL Hgb 9.2 L (12.0-16.0) g/dl Hct 30.0 L (37.0-47.0) % MCV 81.7 (80.0-98.0) fL MCH 25.1 L (27.0-33.0) pg MCHC 30.7 L (31.0-35.0) g/dl RDW 15.3 (11.0-16.0) % Plt Count 372 (160-400) X10*3/uL MPV 9.4 (9.4-12.3) fL Immature Gran % (Auto) 0.7 H (0.0-0.4) % Neut % (Auto) 67.2 (45-73) % Lymph % (Auto) 18.9 L (20-40) % [place] % (Auto) 8.8 (2-11) % Eos % (Auto) 3.9 (0-4) % Baso % (Auto) 0.5 (0-2) % Lymph # (Auto) 1.7 (1.2-4.9) X10*3/uL [place] # (Auto) 0.8 (0.1-1.2) X10*3/uL Eos # (Auto) 0.3 (0.0-0.4) X10*3/uL Baso # (Auto) 0.0 (0.0-0.2) X10*3/uL Abs Immat Gran (auto) 0.06 H (0.00-0.03) X10*3/uL Absolute Neuts (auto) 5.9 (2.0-8.3) x10*3/uL Absolute Nucleated RBC 0.000 (0.0-0.012) X10*3/uL Nucleated RBC % (auto) 0.0 (0.0-0.2) /100WBC Sodium 138 (135-145) mmol/L Potassium 3.9 (3.3-5.1) mmol/L Chloride 104 (96-108) mmol/L Carbon Dioxide 25 (22-29) mmol/L Anion Gap 13 (12-20) BUN 15 (9-16) mg/dL Creatinine 0.76 (0.5-1.4) mg/dL Estim Creat Clear Calc 111.7 Estimated GFR > 60 Random Glucose 117 H (60-115) mg/dL Calcium 9.6 D (8.4-10.2) mg/dL Total Bilirubin 0.2 (0.0-1.0) mg/dL AST 14 (5-31) U/L ALT 17 (0-31) U/L Alkaline Phosphatase 148 H (39-117) U/L Total Protein 7.7 (6.5-8.0) g/dL Albumin 4.5 (3.5-5.0) g/dL Urine Color Yellow Urine Appearance Cloudy Urine pH 6.5 (5.0-9.0) Ur Specific [place] 1.010 (1.005-1.025) Urine Protein Negative (Neg-Trace) mg/dL Urine Glucose (UA) Negative (Negative) mg/dL Urine Ketones Negative (Negative) mg/dL Urine Blood Negative (Negative) Urine Nitrite Negative (Negative) Ur Leukocyte Esterase Small (1+) H (Negative) Urine RBC 0-2 (0-2) /HPF Urine WBC 0-5 (0-5) /HPF Ur Squamous Epith Cells 11-20 (0-2) /HPF Urine Bacteria 3+ (None Seen) Hyaline Casts 0-2 (0-2) /LPF Salicylates < 5.0 L (15-30) mg/dL Urine Opiates Screen Not Detected (Not Detect) Urine Fentanyl Screen Not Detected (Not Detect) Acetaminophen < 3 (<30) mcg/mL Ur Barbiturates Screen Not Detected (Not Detect) Ur Phencyclidine Scrn Not Detected (Not Detect) Ur Amphetamines Screen Not Detected (Not Detect) U Benzodiazepines Scrn Not Detected (Not Detect) Urine Cocaine Screen Not Detected (Not Detect) U Marijuana (THC) Screen Not Detected (Not Detect) Ethyl Alcohol < 10 mg/dL COVID-19 (NICK) Negative (Negative) COVID-19 Clin Com See Note Independent Historian Clinical information obtained from an independent historian. History obtained from or confirmed by: EMS (EMS provided additional history and confirmed the history provided by the patient.) Discharge Plan Discharge Clinical Impression: MDD (major depressive disorder), recurrent episode, severe Patient Disposition: Home, Self-Care Instructions: Depression (ED) Additional Instructions: Follow up with your primary care provider. Return to the emergency department immediately if your symptoms worsen or if you develop any dizziness, shortness of breath, difficulty breathing, chest pain, blurry vision, loss of vision, nausea, vomiting, abdominal pain, fever, chills, back pain, or any other complaints. Prescriptions: No Action fluoxetine 40 mg capsule 80 mg PO DAILY lorazepam 0.5 mg tablet 0.5 mg PO BID PRN (Reason: Anxiety) fluticasone propion-salmeterol 250-50 mcg/dose blister with device 1 ea inhalation BID buspirone 15 mg tablet 15 mg PO DAILY lisinopril 5 mg tablet 5 mg PO DAILY prazosin 2 mg capsule 4 mg PO BEDTIME clozapine 100 mg Tablet 100 mg PO BEDTIME 30 Days Qty: 30 0RF haloperidol 5 mg Tablet 5 mg PO TID@0900,1530,2100 30 Days Qty: 90 0RF lactulose 20 gram/30 mL Solution 20 g PO DAILY PRN (Reason: constipation) 30 Days Qty: 1200 0RF famotidine 10 mg Tablet 10 mg PO BID@0630,1630 albuterol sulfate [Ventolin HFA] 90 mcg/actuation HFA aerosol inhaler 2 inh inhalation Q4H PRN (Reason: Shortness Of Breath Or Wheezing) montelukast 10 mg tablet 10 mg PO BEDTIME metformin 500 mg tablet 500 mg PO BID atorvastatin 10 mg tablet 10 mg PO DAILY pantoprazole 40 mg tablet,delayed release (DR/EC) 40 mg PO DAILY@0630 trazodone 150 mg tablet 150 mg PO BEDTIME benztropine 1 mg tablet 1 mg PO BID mirtazapine 7.5 mg tablet 7.5 mg PO BEDTIME meclizine 50 mg tablet 50 mg PO BID PRN (Reason: dizziness) Qty: 10 0RF Referrals: Maribel Marquez NP [Primary Care Provider] - Interventions: [place]-Suicide Risk Severity Scale Last Done: 12/12/23 17:06 Print Language: Armenian
--- NOTE | 2023-12-12 17:33 | MHC.CARE ---
CARE Team speaks with staff from pt's [facility] Vini MONTEMAYOR. Direct care staff, Eileen reports that when she came on shift at 1600, pt was calm and in no distress. Eileen was spending one on one time with pt when pt went out for a cigarette. When pt came inside she reported that she called the non emergency number. Staff checked in with her and pt reported vaguely that she did not feel safe. EMS was already en route at this point. CARE Team calls [facility] and they report that pt was assessed earlier today and they will send CARE Team the assessment when it is complete.
[2023-12-12 17:42] LABS: Appearance Urine Cloudy; Color Urine Yellow; Glucose Urine UA Negative (Negative); Leukocyte Esterase Urine Small (1+) (Negative); Nitrite Urine Negative (Negative); PH 6.5 (5.0-9.0); UMIC TRIGGER UACC YES; Urine Blood Negative (Negative); Urine Ketones Negative (Negative); Urine Protein Negative (Neg-Trace)
[2023-12-12 17:43] LABS: MANUAL DIFF FLAG NO
[2023-12-12 17:44] VITALS: RESP 16
[2023-12-12 17:44] LABS: Basophils Percent Auto 0.5 % (0-2); Eosinophils Absolute Auto 0.3 X10*3/uL (0.0-0.4); Eosinophils Percent Auto 3.9 % (0-4); Hemoglobin 9.2 g/dl (12.0-16.0); Imm Gran Abs Auto 0.06 X10*3/uL (0.00-0.03); Imm Gran Pct Auto 0.7 % (0.0-0.4); Lymphocytes Absolute Auto 1.7 X10*3/uL (1.2-4.9); Lymphocytes Percent Auto 18.9 % (20-40); Mean Corpuscular HGB Conc 30.7 g/dl (31.0-35.0); Mean Corpuscular Hemoglobin 25.1 pg (27.0-33.0); Mean Corpuscular Volume 81.7 fL (80.0-98.0); Mean Platelet Volume 9.4 fL (9.4-12.3); Monocytes Absolute Auto 0.8 X10*3/uL (0.1-1.2); Monocytes Percent Auto 8.8 % (2-11); Neutrophils Absolute Auto 5.9 x10*3/uL (2.0-8.3); Neutrophils Percent Auto 67.2 % (45-73); Platelet Count 372 X10*3/uL (160-400); Red Blood Count 3.67 X10*6/uL (4.20-5.50); Red Cell Distribution Width 15.3 % (11.0-16.0); White Blood Count 8.8 X10*3/uL (4.8-10.8)
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
[2023-12-12 17:48] LABS: Amphetamine Screen Urine Not Detected (Not Detect); Barbiturates, Urine Not Detected (Not Detect); Benzodiazepines Screen Urine Not Detected (Not Detect); Cannabinoid Screen Urine Not Detected (Not Detect); Cocaine Screen Urine Not Detected (Not Detect); Fentanyl, urine Not Detected (Not Detect); Opiate Screen Urine Not Detected (Not Detect); Phencyclidine Screen Urine Not Detected (Not Detect)
[2023-12-12 17:51] LABS: COVID-19 Test Negative (Negative); IDNOW Serial# 08D9AD1C
[2023-12-12 18:01] LABS: Alanine Aminotransferase 17 U/L (0-31); Albumin Level 4.5 g/dL (3.5-5.0); Alkaline Phosphatase 148 U/L (39-117); Anion Gap 13 (12-20); Aspartate Amino Transferase 14 U/L (5-31); Bilirubin Total 0.2 mg/dL (0.0-1.0); Blood Urea Nitrogen 15 mg/dL (9-16); Calcium 9.6 mg/dL (8.4-10.2); Carbon Dioxide 25 mmol/L (22-29); Chloride 104 mmol/L (96-108); Creatinine Clr Calc Pharmacy 111.7; Estimated Glomerular Filt Rate > 60; Ethanol < 10 mg/dL; Glucose Random 117 mg/dL (60-115); Potassium 3.9 mmol/L (3.3-5.1); Sodium 138 mmol/L (135-145); Total Protein 7.7 g/dL (6.5-8.0)
[2023-12-12 18:02] LABS: Bacteria Urine 3+ (None Seen); Hyaline Casts Urine 0-2 /LPF (0-2); RBC Urine 0-2 /HPF (0-2); UACC Culture Trigger YES; WBC Urine 0-5 /HPF (0-5)
[2023-12-12 18:09] LABS: Acetaminophen LAB < 3 mcg/mL (<30); Salicylate < 5.0 mg/dL (15-30)
== END 2023-12-12 18:41 | disposition home or self-care (01) ==
PROVIDERS: Emergency Provider Emergency Medicine Emergency Medical Services; PCP Nurse Practitioner Family
DX: F33.2 Major depressive disorder, recurrent severe without psychotic features (principal); Z11.52 Encounter for screening for COVID-19; R44.0 Auditory hallucinations; F60.3 Borderline personality disorder; R45.851 Suicidal ideations; F43.12 Post-traumatic stress disorder, chronic; F41.9 Anxiety disorder, unspecified; Z91.51 Personal history of suicidal behavior; Z91.52 Personal history of nonsuicidal self-harm; E66.9 Obesity, unspecified; Z68.42 Body mass index [BMI] 45.0-49.9, adult; E78.5 Hyperlipidemia, unspecified; E11.9 Type 2 diabetes mellitus without complications; D64.9 Anemia, unspecified; K21.9 Gastro-esophageal reflux disease without esophagitis; F17.210 Nicotine dependence, cigarettes, uncomplicated; Z79.84 Long term (current) use of oral hypoglycemic drugs; Z79.899 Other long term (current) drug therapy
CPT/HCPCS: 80053; 80143; 80179; 80307; 81001; 85025; 87086; 87635; 99284; 99285; S9485

== ENCOUNTER 2023-12-16 15:19 | Emergency (ER) | payer MEDICARE, MEDICAID, SELFPAY ==
--- NOTE | ~2023-12-16 | XR_ITS ---
EXAMINATION: XR CHEST CLINICAL INFORMATION: Chest pain. COMPARISON: Chest radiograph 08/29/2023. TECHNIQUE: 2 views of the chest were obtained. FINDINGS: Normal appearance of the cardiomediastinal silhouette. No focal airspace opacities, pleural effusion or pneumothorax. No pulmonary edema. No acute osseous findings. Visualized upper abdomen is within normal limits. XR/XR chest 2V IMPRESSION: No acute cardiopulmonary findings.
[2023-12-16 15:24] VITALS: BP 156/97; PULSE 106; O2SAT 97
--- NOTE | 2023-12-16 15:27 | ECG_ITS ---
Test Reason : CP Blood Pressure : / mmHG Vent. Rate : 099 BPM Atrial Rate : 099 BPM P-R Int : 156 ms QRS Dur : 076 ms QT Int : 348 ms P-R-T Axes : 043 028 053 degrees QTc Int : 446 ms Normal sinus rhythm Normal ECG When compared with ECG of 07-DEC-2023 18:03, No significant change was found Referred By: Generic ED Physician Electronically Signed By:Fabricio Kay
[2023-12-16 15:33] VITALS: BP 132/83; PULSE 102; RESP 16; TEMP 37.2; O2SAT 97; BMI 39.9
[2023-12-16 16:15] LABS: MANUAL DIFF FLAG NO
[2023-12-16 16:16] LABS: Basophils Percent Auto 0.6 % (0-2); Eosinophils Absolute Auto 0.3 X10*3/uL (0.0-0.4); Eosinophils Percent Auto 4.7 % (0-4); Hematocrit 28.3 % (37.0-47.0); Hemoglobin 8.2 g/dl (12.0-16.0); Imm Gran Abs Auto 0.05 X10*3/uL (0.00-0.03); Imm Gran Pct Auto 0.7 % (0.0-0.4); Lymphocytes Absolute Auto 1.4 X10*3/uL (1.2-4.9); Lymphocytes Percent Auto 20.1 % (20-40); Mean Corpuscular Hemoglobin 23.9 pg (27.0-33.0); Mean Corpuscular Volume 82.5 fL (80.0-98.0); Mean Platelet Volume 9.5 fL (9.4-12.3); Monocytes Absolute Auto 0.6 X10*3/uL (0.1-1.2); Monocytes Percent Auto 8.3 % (2-11); Neutrophils Absolute Auto 4.4 x10*3/uL (2.0-8.3); Neutrophils Percent Auto 65.6 % (45-73); Platelet Count 331 X10*3/uL (160-400); Red Blood Count 3.43 X10*6/uL (4.20-5.50); Red Cell Distribution Width 15.5 % (11.0-16.0); White Blood Count 6.8 X10*3/uL (4.8-10.8)
--- NOTE | 2023-12-16 16:28 | ED_ITS ---
HPI - Chest Pain General Chief Complaint: Chest Pain Stated Complaint: chest pain while breathing Time Seen by Provider: 12/16/23 16:27 Source: patient and EMS Mode of arrival: EMS Limitations: no limitations History of Present Illness HPI narrative: Patient is a 48 year old assigned female at with a history of MDD presenting to the emergency department today with chest pain. Patient states that she smoked a cigarette today and had chest pain afterwards. Patient denies any dizziness, lightheadedness, abdominal pain, nausea, vomiting, fever, chills, blurry vision, double vision, loss of vision, difficulty breathing, shortness of breath, back pain, night sweats, pain with urination, increased urinary frequency, increased urinary urgency, blood in her urine or stool, syncope or a near syncopal episode, recent trauma or falls, bowel incontinence, bladder incontinence, bowel retention, bladder retention, or any other complaints at this time. MD complaint: chest pain Onset (ago): minute(s) Related Data Home Medications Medication Instructions Recorded Confirmed fluoxetine 40 mg capsule 80 mg PO DAILY 08/25/23 11/29/23 lorazepam 0.5 mg tablet 0.5 mg PO BID PRN Anxiety 08/31/23 11/29/23 albuterol sulfate 90 mcg/actuation 2 inh inhalation Q4H PRN Shortness 09/17/23 11/29/23 aerosol inhaler (Ventolin HFA) Of Breath Or Wheezing famotidine 10 mg tablet 10 mg PO BID@0630,1630 09/17/23 11/29/23 montelukast 10 mg tablet 10 mg PO BEDTIME 09/17/23 11/29/23 atorvastatin 10 mg tablet 10 mg PO DAILY 10/04/23 11/29/23 benztropine 1 mg tablet 1 mg PO BID 10/04/23 11/29/23 metformin 500 mg tablet 500 mg PO BID 10/04/23 11/29/23 mirtazapine 7.5 mg tablet 7.5 mg PO BEDTIME 10/04/23 11/29/23 pantoprazole 40 mg tablet,delayed 40 mg PO DAILY@0630 10/04/23 11/29/23 release trazodone 150 mg tablet 150 mg PO BEDTIME 10/04/23 11/29/23 buspirone 15 mg tablet 15 mg PO DAILY 11/18/23 11/29/23 fluticasone 250 mcg-salmeterol 50 1 ea inhalation BID 11/18/23 11/29/23 mcg/dose blistr powdr for inhalation lisinopril 5 mg tablet 5 mg PO DAILY blood pressure 11/18/23 11/29/23 prazosin 2 mg capsule 4 mg PO BEDTIME 11/18/23 11/29/23 Previous Rx's Medication Instructions Recorded clozapine 100 mg tablet 100 mg PO BEDTIME 30 days #30 tabs 11/29/23 haloperidol 5 mg tablet 5 mg PO TID@0900,1530,2100 30 days 11/29/23 #90 tabs lactulose 20 gram/30 mL oral 20 g (30 mL) PO DAILY PRN 11/29/23 solution constipation 30 days #1,200 mL meclizine 50 mg tablet 50 mg PO BID PRN dizziness #10 tabs 11/29/23 Allergies Allergy/AdvReac Type Severity Reaction Status Date / Time azithromycin [AZITHROMYCIN] Allergy Severe Rash Verified 11/09/23 18:02 Fish Containing Products Allergy Severe Anaphylaxis Verified 11/09/23 18:02 codeine [Codeine] Allergy Intermediate Rash Verified 11/09/23 18:02 Penicillins Allergy Intermediate Rash Verified 11/09/23 18:02 prednisone [Prednisone] Allergy Intermediate Rash Verified 11/09/23 18:02 Sulfa (Sulfonamide Allergy Intermediate Rash Verified 11/09/23 18:02 Antibiotics) [Sulfa (Sulfonamides)] ziprasidone [From Geodon] Allergy Intermediate dysuria, Verified 11/09/23 18:02 rash Review of Systems 2 Constitutional: Constitutional: Reports no additional constitutional complaints, Denies chills, Denies fever(s) and Denies night sweats Eyes: Eyes: Reports no additional eye complaints, Denies blurry vision, Denies change in vision, Denies diplopia, Denies eye discharge, Denies loss of vision and Denies eye pain ENT: Denies dizziness Cardiovascular: Cardiovascular: Reports no additional cardiovascular complaints, Reports chest pain, Denies lightheadedness, Denies Loss of Consciousness and Denies dyspnea Respiratory: Respiratory: Reports no additional respiratory complaints and Denies dyspnea Gastrointestinal: Gastrointestinal: Reports no additional gastrointestinal complaints, Denies abdominal pain, Denies melena, Denies hematochezia, Denies change in bowel habits and Denies change in stool character Genitourinary: Genitourinary: Denies hematuria, Denies urinary frequency, Denies dysuria, Denies urinary incontinence, Denies urinary hesitancy and Denies urinary urgency Musculoskeletal: Musculoskeletal: Reports no additional musculoskeletal complaints, Denies numbness and Denies tingling Neurologic: Denies dizziness, Denies loss of vision, Denies numbness and Denies tingling Psychiatric: Psychiatric: Reports no additional psychiatric complaints Endocrine: Endocrine: Reports no additional endocrine complaints Hematologic/Lymphatic: Hematologic/Lymphatic: Reports no additional hematologic/lymphatic complaints Allergic/Immunologic: Allergic/Immunologic: Reports no additional allergic/immunologic complaints [facility] Past Medical History Attestation statement: The following information was validated with the patient. Source: old records reviewed and nursing notes reviewed Medical History Suicidal ideation MDD (major depressive disorder), recurrent episode, severe Chest pain Acute anxiety COVID-19 Full body hives Major depression Dizziness Suicide attempt UTI (urinary tract infection) Acetaminophen overdose COVID History of attempted suicide History of non-suicidal self-harm Hypomagnesemia Suicide attempt Suicide attempt by acetaminophen overdose Acetaminophen overdose Depression Diabetes type 2, controlled Borderline personality disorder PTSD (post-traumatic stress disorder) Overdose GERD (gastroesophageal reflux disease) Mood disorder Hyperlipidemia Bronchitis Social History Social History Household Members: None Household Members Other:: prison Housing: Other Housing Other:: Nursing Home Do you presently have visiting nurse or other home services: No Unable to assess alcohol history related to: Unknown Alcohol intake: never Comment: sitter in room Patient Tobacco Use Status: Former Tobacco user Quit Date: NA Tobacco use type: Cigarette Cigarette Packs Per Day: 1 Cigarettes Per Day: 20.0 Years Smoked: 22 Smoked in Last 30 Days: Yes e-Cigarette/Vaping Use: Never Used Second Hand Smoke Exposure: No Use of substances other than those prescribed or required for medical reasons: No Substance Use Type: Marijuana Advance Directives: No Advance Directives Information Provided: No Patient : No service: No Current occupational status: unemployed and disabled Sexual orientation: Straight/Heterosexual Physical Exam 2 Vital Signs: Vital Signs: Last Vital Signs Temp 99.0 F 12/16/23 15:33 Pulse 102 H 12/16/23 15:33 Resp 16 12/16/23 15:33 BP 132/83 12/16/23 15:33 Pulse Ox 97 12/16/23 15:33 O2 Del Method Room Air 12/16/23 15:33 BMI result Body Mass Index 39.9 Const: General: cooperative, no acute distress, alert and awake Nutritional Appearance: well nourished Orientation/consciousness: patient oriented x3 Limitations: no limitations HEENT: Head: Yes normal to inspection and Yes atraumatic Ears: hearing grossly normal bilaterally and external ears normal General nose exam: Normal external nose present, no nasal discharge noted and no epistaxis Face and sinus: Yes normal facial exam, No abrasion and No laceration Mouth: Normal oral and palatal mucosa present, no drooling and no muffled voice Eyes: General: appearance normal, both eyes and all related structures P eriorbital: periorbital findings normal Eyelids: Yes eyelids normal C onjunctivae: conjunctivae normal Pupils: Equal, round and reactive pupils present EOM: EOMs intact bilaterally Neck: Neck: Yes normal visual inspection, Yes full ROM and Yes no lymphadenopathy Chest: Chest palpation & inspection: normal inspection of the chest Resp: Effort & Inspection: normal respiratory effort and able to speak in complete sentences Auscultation: clear to auscultation bilaterally Cardio: Rate: regular rate Rhythm: regular rhythm GI: Inspection: Yes normal to inspection Neuro: General: patient oriented x3 and moves all extremities Cranial nerves: Yes Equal, round and reactive pupils present Cognition (Neuro): n ormal cognition Motor exam (neuro): 5/5 motor strength present throughout Sensory Exam: Normal double simultaneous stimulation for sensation C oordination: [id number] test normal Extrem: General: Yes normal to inspection, Yes full ROM and Yes capillary refill normal Psych: Appearance: grossly normal Mental Status: mental status grossly normal Affect: normal affect Attitude: cooperative Thought process: N ormal thought process present Thought content: Normal thought content present Insight: Good insight present (Psych) Medical Decision Making Medical Decision Making MDM Narrative: Patient is a 48 year old assigned female at with a history of MDD presenting to the emergency department today with chest pain. Patient's physical exam was unremarkable. Patient's blood work was unremarkable. Patient's EKG was unremarkable. Patient's chest x-ray showed no acute process. I explained my physical exam findings as well as all test results to the patient. I answered all questions asked by the patient. I stressed the importance of the patient taking her medication as prescribed. I stressed the importance of the patient following up with her primary care provider. I stressed the importance of the patient returning to the emergency department immediately if her symptoms were to worsen or if she were to develop any dizziness, shortness of breath, difficulty breathing, chest pain, blurry vision, loss of vision, nausea, vomiting, abdominal pain, fever, chills, back pain, or any other complaints. Patient verbalized agreement and understanding with this treatment plan and discharge. Differential Diagnosis Differential Diagnoses: The differential diagnosis associated with the presentation includes Chest pain Anxiety Panic attack Admission/Observation Consideration of admission/observation: Escalation of care including admission/observation considered Patient would have been admitted to the hospital had her work up had any findings where hospital admission was appropriate and her clinical presentation warranted hospital admission. Lab Data [facility] Lab Attestation statement: I reviewed the patient's lab results. My interpretation of these results are in the [facility] Rationale portion of this note. 12/16/23 16:10 12/16/23 16:10 Labs: Lab Results 12/16/23 Range/Units 16:10 WBC 6.8 (4.8-10.8) X10*3/uL RBC 3.43 L (4.20-5.50) X10*6/uL Hgb 8.2 L (12.0-16.0) g/dl Hct 28.3 L (37.0-47.0) % MCV 82.5 (80.0-98.0) fL MCH 23.9 L (27.0-33.0) pg MCHC 29.0 L (31.0-35.0) g/dl RDW 15.5 (11.0-16.0) % Plt Count 331 (160-400) X10*3/uL MPV 9.5 (9.4-12.3) fL Immature Gran % (Auto) 0.7 H (0.0-0.4) % Neut % (Auto) 65.6 (45-73) % Lymph % (Auto) 20.1 (20-40) % [place] % (Auto) 8.3 (2-11) % Eos % (Auto) 4.7 H (0-4) % Baso % (Auto) 0.6 (0-2) % Lymph # (Auto) 1.4 (1.2-4.9) X10*3/uL [place] # (Auto) 0.6 (0.1-1.2) X10*3/uL Eos # (Auto) 0.3 (0.0-0.4) X10*3/uL Baso # (Auto) 0.0 (0.0-0.2) X10*3/uL Abs Immat Gran (auto) 0.05 H (0.00-0.03) X10*3/uL Absolute Neuts (auto) 4.4 (2.0-8.3) x10*3/uL Absolute Nucleated RBC 0.000 (0.0-0.012) X10*3/uL Nucleated RBC % (auto) 0.0 (0.0-0.2) /100WBC D-Dimer High Sensitivty < 150 NG/ML Sodium 141 (135-145) mmol/L Potassium 3.9 (3.3-5.1) mmol/L Chloride 108 (96-108) mmol/L Carbon Dioxide 23 (22-29) mmol/L Anion Gap 14 (12-20) BUN 12 (9-16) mg/dL Creatinine 0.77 (0.5-1.4) mg/dL Estim Creat Clear Calc 111.9 Estimated GFR > 60 Random Glucose 96 (60-115) mg/dL Calcium 8.9 D (8.4-10.2) mg/dL Magnesium 2.0 (1.6-2.6) mg/dL Total Bilirubin 0.2 (0.0-1.0) mg/dL AST 17 (5-31) U/L ALT 16 (0-31) U/L Alkaline Phosphatase 121 H (39-117) U/L Troponin I High Sens < 2.7 D (<3.5-17.0) ng/L Total Protein 6.9 (6.5-8.0) g/dL Albumin 4.2 (3.5-5.0) g/dL Independent Interpretation I performed an independent interpretation of an: EKG and Plain X-Ray Interpretation: My interpretation is in agreement with the radiologist's impression of this imaging study. - EXAMINATION: XR CHEST CLINICAL INFORMATION: Chest pain. COMPARISON: Chest radiograph 08/29/2023. TECHNIQUE: 2 views of the chest were obtained. FINDINGS: Normal appearance of the cardiomediastinal silhouette. No focal airspace opacities, pleural effusion or pneumothorax. No pulmonary edema. No acute osseous findings. Visualized upper abdomen is within normal limits. XR/XR chest 2V IMPRESSION: No acute cardiopulmonary findings. Dictated By: Ramila Celis Signed By: Electronically signed by Ramila Celis 12/16/23 1642 - Vent. Rate: 099 BPM Atrial Rate: 099 BPM P-R Int: 156 ms QRS Dur: 076 ms QT Int: 348 ms P-R-T Axes: 043 028 053 degrees QTc Int: 446 ms Normal sinus rhythm Normal ECG When compared with ECG of 07-DEC-2023 18:03, No significant change was found DD/ [id number] Radiology Impression Discussion of test interpretation with radiology: I have reviewed the radiologist's reading. Independent Historian Clinical information obtained from an independent historian. History obtained from or confirmed by: EMS (EMS provided additional history and confirmed the history provided by the patient.) Discharge Plan Discharge Clinical Impression: Chest pain Patient Disposition: Home, Self-Care Instructions: Chest Pain (DC) Additional Instructions: Follow up with your primary care provider. Return to the emergency department immediately if your symptoms worsen or if you develop any dizziness, shortness of breath, difficulty breathing, chest pain, blurry vision, loss of vision, nausea, vomiting, abdominal pain, fever, chills, back pain, or any other complaints. Prescriptions: No Action fluoxetine 40 mg capsule 80 mg PO DAILY lorazepam 0.5 mg tablet 0.5 mg PO BID PRN (Reason: Anxiety) fluticasone propion-salmeterol 250-50 mcg/dose blister with device 1 ea inhalation BID buspirone 15 mg tablet 15 mg PO DAILY lisinopril 5 mg tablet 5 mg PO DAILY prazosin 2 mg capsule 4 mg PO BEDTIME clozapine 100 mg Tablet 100 mg PO BEDTIME 30 Days Qty: 30 0RF haloperidol 5 mg Tablet 5 mg PO TID@0900,1530,2100 30 Days Qty: 90 0RF lactulose 20 gram/30 mL Solution 20 g PO DAILY PRN (Reason: constipation) 30 Days Qty: 1200 0RF famotidine 10 mg Tablet 10 mg PO BID@0630,1630 albuterol sulfate [Ventolin HFA] 90 mcg/actuation HFA aerosol inhaler 2 inh inhalation Q4H PRN (Reason: Shortness Of Breath Or Wheezing) montelukast 10 mg tablet 10 mg PO BEDTIME metformin 500 mg tablet 500 mg PO BID atorvastatin 10 mg tablet 10 mg PO DAILY pantoprazole 40 mg tablet,delayed release (DR/EC) 40 mg PO DAILY@0630 trazodone 150 mg tablet 150 mg PO BEDTIME benztropine 1 mg tablet 1 mg PO BID mirtazapine 7.5 mg tablet 7.5 mg PO BEDTIME meclizine 50 mg tablet 50 mg PO BID PRN (Reason: dizziness) Qty: 10 0RF Referrals: Maribel Marquez NP [Primary Care Provider] - Print Language: [place]
[2023-12-16 16:42] LABS: D Dimer High Sensitivity < 150 NG/ML
[2023-12-16 16:44] LABS: Alanine Aminotransferase 16 U/L (0-31); Albumin Level 4.2 g/dL (3.5-5.0); Alkaline Phosphatase 121 U/L (39-117); Anion Gap 14 (12-20); Aspartate Amino Transferase 17 U/L (5-31); Bilirubin Total 0.2 mg/dL (0.0-1.0); Blood Urea Nitrogen 12 mg/dL (9-16); Calcium 8.9 mg/dL (8.4-10.2); Carbon Dioxide 23 mmol/L (22-29); Chloride 108 mmol/L (96-108); Creatinine Clr Calc Pharmacy 111.9; Estimated Glomerular Filt Rate > 60; Glucose Random 96 mg/dL (60-115); Potassium 3.9 mmol/L (3.3-5.1); Sodium 141 mmol/L (135-145); Total Protein 6.9 g/dL (6.5-8.0)
[2023-12-16 17:15] LABS: Troponin-I High Sensitivity < 2.7 ng/L (<3.5-17.0)
== END 2023-12-16 17:45 | disposition home or self-care (01) ==
PROVIDERS: Physician Assistant; Emergency Provider Student in an Organized Health Care Education/Training Program; PCP Nurse Practitioner Family
DX: R07.89 Other chest pain (principal); R06.02 Shortness of breath; F17.210 Nicotine dependence, cigarettes, uncomplicated; Z79.899 Other long term (current) drug therapy
CPT/HCPCS: 36415; 71046; 80053; 83735; 84484; 85025; 85379; 93005; 99283; 99284

== ENCOUNTER → 2023-12-16 15:27 | Outpatient (BNV) | payer MEDICARE, MEDICAID, SELFPAY | PROVIDERS: Emergency Provider Student in an Organized Health Care Education/Training Program; PCP Nurse Practitioner Family; Visit Provider Internal Medicine Cardiovascular Disease | DX: R07.9 Chest pain, unspecified (principal) | CPT/HCPCS: 93010 ==

== ENCOUNTER 2023-12-17 20:50 | Emergency (ER) | payer MEDICARE, MEDICAID, SELFPAY ==
--- NOTE | ~2023-12-17 | XR_ITS ---
EXAMINATION: XR KNEE, LEFT CLINICAL INFORMATION: Fall left knee pain and laceration COMPARISON: Left knee radiograph from 01/23/2023 TECHNIQUE: Four views of the left knee. FINDINGS: No acute visible fracture or dislocation. Joint space alignment are maintained. Trace knee joint effusion. Soft tissues are unremarkable. XR/XR knee LT 3V IMPRESSION: 1. No acute visible fracture or dislocation. 2. Trace knee joint effusion.
--- NOTE | ~2023-12-17 | XR_ITS ---
EXAMINATION: XR ANKLE, LEFT CLINICAL INFORMATION: Fall left ankle. COMPARISON: Left ankle radiograph from 11/29/2023 TECHNIQUE: AP, lateral, and mortise views of the left ankle. FINDINGS: No acute visible fracture or dislocation. The ankle mortise is symmetric. Tiny plantar calcaneal heel spur. Enthesopathy at the Achilles tendon insertion site. Joint spaces and alignment are otherwise maintained. Soft tissues are unremarkable. XR/XR ankle LT min 3V IMPRESSION: 1. No acute visible fracture or dislocation. 2. Tiny plantar calcaneal heel spur. 3. Enthesopathy at the Achilles tendon insertion site.
[2023-12-17 20:56] VITALS: BP 146/87; BP 150/78; PULSE 112; PULSE 120; RESP 18; TEMP 37.1; O2SAT 98; BMI 39.0
[2023-12-17 22:48] VITALS: BP 106/56; PULSE 98; RESP 16; TEMP 36.3; O2SAT 95
--- NOTE | 2023-12-17 23:33 | ED.FALL ---
HPI - Fall General Chief Complaint: Fall Stated Complaint: from long term w/ L ankle pain Time Seen by Provider: 12/17/23 23:02 Source: patient and EMS Mode of arrival: EMS Limitations: no limitations History of Present Illness HPI Narrative: 48-year-old female well known to our ED for frequent ED visits in in the street when she stepped in the hole twisted her left ankle and causing her to fall with superficial scratches to the left knee in her head but no LOC patient has no headache or nausea or vomiting. No SI or HI or hallucination. Patient would like to be discharged home and feels safe to be discharged. Patient is able to ambulate in the emergency department. Related Data Home Medications Medication Instructions Recorded Confirmed fluoxetine 40 mg capsule 80 mg PO DAILY 08/25/23 11/29/23 lorazepam 0.5 mg tablet 0.5 mg PO BID PRN Anxiety 08/31/23 11/29/23 albuterol sulfate 90 mcg/actuation 2 inh inhalation Q4H PRN Shortness 09/17/23 11/29/23 aerosol inhaler (Ventolin HFA) Of Breath Or Wheezing famotidine 10 mg tablet 10 mg PO BID@0630,1630 09/17/23 11/29/23 montelukast 10 mg tablet 10 mg PO BEDTIME 09/17/23 11/29/23 atorvastatin 10 mg tablet 10 mg PO DAILY 10/04/23 11/29/23 benztropine 1 mg tablet 1 mg PO BID 10/04/23 11/29/23 metformin 500 mg tablet 500 mg PO BID 10/04/23 11/29/23 mirtazapine 7.5 mg tablet 7.5 mg PO BEDTIME 10/04/23 11/29/23 pantoprazole 40 mg tablet,delayed 40 mg PO DAILY@0630 10/04/23 11/29/23 release trazodone 150 mg tablet 150 mg PO BEDTIME 10/04/23 11/29/23 buspirone 15 mg tablet 15 mg PO DAILY 11/18/23 11/29/23 fluticasone 250 mcg-salmeterol 50 1 ea inhalation BID 11/18/23 11/29/23 mcg/dose blistr powdr for inhalation lisinopril 5 mg tablet 5 mg PO DAILY blood pressure 11/18/23 11/29/23 prazosin 2 mg capsule 4 mg PO BEDTIME 11/18/23 11/29/23 Previous Rx's Medication Instructions Recorded clozapine 100 mg tablet 100 mg PO BEDTIME 30 days #30 tabs 11/29/23 haloperidol 5 mg tablet 5 mg PO TID@0900,1530,2100 30 days 11/29/23 #90 tabs lactulose 20 gram/30 mL oral 20 g (30 mL) PO DAILY PRN 11/29/23 solution constipation 30 days #1,200 mL meclizine 50 mg tablet 50 mg PO BID PRN dizziness #10 tabs 11/29/23 Allergies Allergy/AdvReac Type Severity Reaction Status Date / Time azithromycin [AZITHROMYCIN] Allergy Severe Rash Verified 11/09/23 18:02 Fish Containing Products Allergy Severe Anaphylaxis Verified 11/09/23 18:02 codeine [Codeine] Allergy Intermediate Rash Verified 11/09/23 18:02 Penicillins Allergy Intermediate Rash Verified 11/09/23 18:02 prednisone [Prednisone] Allergy Intermediate Rash Verified 11/09/23 18:02 Sulfa (Sulfonamide Allergy Intermediate Rash Verified 11/09/23 18:02 Antibiotics) [Sulfa (Sulfonamides)] ziprasidone [From Geodon] Allergy Intermediate dysuria, Verified 11/09/23 18:02 rash Review of Systems Review of Systems: All other systems are reviewed and are negative Constitutional: Reports as per HPI and Reports no additional constitutional complaints Eyes: Reports as per HPI and Reports no additional eye complaints Reports system reviewed and no additional complaints, except as documented Cardiovascular: Reports as per HPI and Reports no additional cardiovascular complaints Respiratory: Reports as per HPI and Reports no additional respiratory complaints Gastrointestinal: Reports as per HPI and Reports no additional gastrointestinal complaints Genitourinary: Reports no additional female genitourinary complaints Musculoskeletal: Reports no additional musculoskeletal complaints Skin/Breast: Reports system reviewed and no additional complaints, except as docu Psychiatric: Reports no additional psychiatric complaints Endocrine: Reports no additional endocrine complaints Hematologic/Lymphatic: Reports no additional hematologic/lymphatic complaints Allergic/Immunologic: Reports no additional allergic/immunologic complaints Reports system reviewed and no additional complaints, except as documented and Reports Abnormal speech present [facility] Past Medical History Medical History Suicidal ideation MDD (major depressive disorder), recurrent episode, severe Chest pain Acute anxiety COVID-19 Full body hives Major depression Dizziness Suicide attempt UTI (urinary tract infection) Acetaminophen overdose COVID History of attempted suicide History of non-suicidal self-harm Hypomagnesemia Suicide attempt Suicide attempt by acetaminophen overdose Acetaminophen overdose Depression Diabetes type 2, controlled Borderline personality disorder PTSD (post-traumatic stress disorder) Overdose GERD (gastroesophageal reflux disease) Mood disorder Hyperlipidemia Bronchitis Social History Social History Household Members: None Household Members Other:: long term Housing: Other Housing Other:: Assisted Do you presently have visiting nurse or other home services: No Unable to assess alcohol history related to: Unknown Alcohol intake: never Comment: sitter in room Patient Tobacco Use Status: Former Tobacco user Quit Date: NA Tobacco use type: Cigarette Cigarette Packs Per Day: 1 Cigarettes Per Day: 20.0 Years Smoked: 22 Smoked in Last 30 Days: No e-Cigarette/Vaping Use: Never Used Second Hand Smoke Exposure: No Substance Use Type: Marijuana Advance Directives: No Advance Directives Information Provided: No service: No Current occupational status: unemployed and disabled Sexual orientation: Straight/Heterosexual Physical Exam Vital Signs: Vital Signs: Last Vital Signs Temp 97.4 F 12/17/23 22:48 Pulse 98 12/17/23 22:48 Resp 16 12/17/23 22:48 BP 106/56 L 12/17/23 22:48 Pulse Ox 95 12/17/23 22:48 O2 Del Method Room Air 12/17/23 22:48 BMI result Body Mass Index 39.0 Vital signs have been reviewed and appear to be correct. Blood pressure elevated. Heart rate normal. Respiratory rate normal. Temperature normal. Oxygen saturation normal. Appearance: Alert. Oriented X3. No acute distress. Head: Normal external exam. Normocephalic. Atraumatic. No Harper signs noted. No raccoon eyes noted Eyes: PERRLA. EOMI. Conjunctiva and sclera normal. Eyelids normal. ENT: TM's Normal. Pharynx normal. Uvula midline. Moist mucous membranes. No trismus noted. No drooling noted. No muffled voice noted. Neck: Normal inspection. Neck supple. FROM. No adenopathy. Thyroid Normal. No meningeal signs. No neck mass noted. CVS: Normal heart rate and rhythm. Heart sound normal. No murmurs noted. Pulses normal throughout. Respiratory: No respiratory distress. Painless inspiration. Breath sounds normal. No wheezes/rales/rhonchi noted. Chest nontender. No accessory muscle usage noted or decreased air movement noted. Abdomen: Soft and nontender. Bowel sounds normal in all 4 quadrants. No distention noted. No organomegaly noted. No visible injury noted. Back: No CVA tenderness. Full range of motion noted. Skin: Skin warm and dry. Normal skin color. Normal skin turgor. No rashes/lesions/lacerations noted. Extremities: Left lower extremity exam: Mild tenderness over the left ankle diffusely, no step-off, no deformity, neurovascularly intact, superficial abrasion on the left knee, no deformity, no swelling no step-off. Neuro: Oriented X 3. Cranial nerve exam: II-XII are grossly intact No motor deficit. No sensory deficit. Reflexes normal. Course Reevaluation(s) Reevaluation #1: S/p mechanical fall and left ankle/left knee pain without fracture, patient is able to ambulate in the emergency department, patient on discharge declined SI or HI or hallucination feels safe to be discharged home. Time: 23:36 Medical Decision Making Differential Diagnosis Differential Diagnoses: The differential diagnosis associated with the presentation includes (Head injury, left knee contusion, left knee fracture, left ankle contusion, left ankle fracture SI, depression.) Admission/Observation Consideration of admission/observation: Escalation of care including admission/observation considered Independent Interpretation I performed an independent interpretation of an: Plain X-Ray (Left knee x-ray/left ankle x-ray:1. No acute visible fracture or dislocation. 2. Trace knee joint effusion. 1. No acute visible fracture or dislocation. 2. Tiny plantar calcaneal heel spur. 3. Enthesopathy at the Achilles tendon insertion site. ) Radiology Impression Discussion of test interpretation with radiology: I have reviewed the radiologist's reading. Discharge Plan Discharge Clinical Impression: Contusion of left knee, Left ankle sprain Patient Disposition: Home, Self-Care Instructions: Contusion in Adults (ED) Prescriptions: No Action fluoxetine 40 mg capsule 80 mg PO DAILY lorazepam 0.5 mg tablet 0.5 mg PO BID PRN (Reason: Anxiety) fluticasone propion-salmeterol 250-50 mcg/dose blister with device 1 ea inhalation BID buspirone 15 mg tablet 15 mg PO DAILY lisinopril 5 mg tablet 5 mg PO DAILY prazosin 2 mg capsule 4 mg PO BEDTIME clozapine 100 mg Tablet 100 mg PO BEDTIME 30 Days Qty: 30 0RF haloperidol 5 mg Tablet 5 mg PO TID@0900,1530,2100 30 Days Qty: 90 0RF lactulose 20 gram/30 mL Solution 20 g PO DAILY PRN (Reason: constipation) 30 Days Qty: 1200 0RF famotidine 10 mg Tablet 10 mg PO BID@0630,1630 albuterol sulfate [Ventolin HFA] 90 mcg/actuation HFA aerosol inhaler 2 inh inhalation Q4H PRN (Reason: Shortness Of Breath Or Wheezing) montelukast 10 mg tablet 10 mg PO BEDTIME metformin 500 mg tablet 500 mg PO BID atorvastatin 10 mg tablet 10 mg PO DAILY pantoprazole 40 mg tablet,delayed release (DR/EC) 40 mg PO DAILY@0630 trazodone 150 mg tablet 150 mg PO BEDTIME benztropine 1 mg tablet 1 mg PO BID mirtazapine 7.5 mg tablet 7.5 mg PO BEDTIME meclizine 50 mg tablet 50 mg PO BID PRN (Reason: dizziness) Qty: 10 0RF Referrals: Maribel Marquez NP [Primary Care Provider] -
== END 2023-12-18 00:31 | disposition home or self-care (01) ==
PROVIDERS: Emergency Provider Emergency Medicine; PCP Nurse Practitioner Family
DX: S93.402A Sprain of unspecified ligament of left ankle, initial encounter (principal); S80.02XA Contusion of left knee, initial encounter; X50.1XXA Overexertion from prolonged static or awkward postures, initial encounter; W18.30XA Fall on same level, unspecified, initial encounter; Y93.9 Activity, unspecified; Y92.410 Unspecified street and highway as the place of occurrence of the external cause; Y99.9 Unspecified external cause status
CPT/HCPCS: 73562; 73610; 99283; 99284

== ENCOUNTER 2023-12-18 11:21 | Outpatient (REF) | payer MEDICARE, MEDICAID, SELFPAY ==
[2023-12-18 12:05] LABS: MANUAL DIFF FLAG NO
[2023-12-18 12:13] LABS: Basophils Percent Auto 0.6 % (0-2); Eosinophils Absolute Auto 0.3 X10*3/uL (0.0-0.4); Eosinophils Percent Auto 3.7 % (0-4); Hematocrit 30.1 % (37.0-47.0); Hemoglobin 9.1 g/dl (12.0-16.0); Imm Gran Abs Auto 0.05 X10*3/uL (0.00-0.03); Imm Gran Pct Auto 0.7 % (0.0-0.4); Lymphocytes Absolute Auto 1.3 X10*3/uL (1.2-4.9); Lymphocytes Percent Auto 18.5 % (20-40); Mean Corpuscular HGB Conc 30.2 g/dl (31.0-35.0); Mean Corpuscular Hemoglobin 24.9 pg (27.0-33.0); Mean Corpuscular Volume 82.5 fL (80.0-98.0); Mean Platelet Volume 9.7 fL (9.4-12.3); Monocytes Absolute Auto 0.6 X10*3/uL (0.1-1.2); Monocytes Percent Auto 8.1 % (2-11); Neutrophils Absolute Auto 4.6 x10*3/uL (2.0-8.3); Neutrophils Percent Auto 68.4 % (45-73); Platelet Count 314 X10*3/uL (160-400); Red Blood Count 3.65 X10*6/uL (4.20-5.50); Red Cell Distribution Width 15.6 % (11.0-16.0); White Blood Count 6.8 X10*3/uL (4.8-10.8)
== END 2023-12-18 11:22 | disposition home or self-care (01) ==
LOC: HO.LABR 11:21
PROVIDERS: PCP Nurse Practitioner Family; Visit Provider Psychiatry & Neurology Psychiatry
DX: Z79.899 Other long term (current) drug therapy (principal)
CPT/HCPCS: 36415; 85025

== ENCOUNTER 2023-12-21 16:36 | Emergency (ER) | payer MEDICARE, MEDICAID, SELFPAY ==
[2023-12-21 17:25] VITALS: BP 182/92; PULSE 98; RESP 16; TEMP 37; O2SAT 100; BMI 40.8
[2023-12-21 18:00] VITALS: BP 148/89; PULSE 94
--- NOTE | 2023-12-21 18:00 | ECG_ITS ---
Test Reason : FALL Blood Pressure : / mmHG Vent. Rate : 101 BPM Atrial Rate : 101 BPM P-R Int : 176 ms QRS Dur : 080 ms QT Int : 360 ms P-R-T Axes : 049 031 058 degrees QTc Int : 466 ms Sinus tachycardia Otherwise normal ECG When compared with ECG of 16-DEC-2023 15:45, No significant change was found Referred By: Eileen Ryan Electronically Signed By:Fabricio Kay
--- NOTE | 2023-12-21 18:45 | PC.NURSE ---
pt asking to go home states she was just having a panic attack, she has a staff milk treater at the bedside.
--- NOTE | 2023-12-21 18:49 | ED_ITS ---
HPI - General Adult General Chief complaint: Dizziness Stated complaint: Headache Time Seen by Provider: 12/21/23 17:01 Source: patient Mode of arrival: EMS Limitations: no limitations History of Present Illness HPI narrative: Comes to the emergency room complaining of dizziness/lightheadedness for several days. Patient states that she fell because she was lightheaded secondary to taking Clozaril. Patient states that she has been taking a new dose. When I spoke to Lucita, patient states that she was not actually dizzy, patient states that she had a really bad panic attack and wanted to come to emergency room. Patient denies being dizzy, lightheaded, no chest pain or shortness of breath. Patient states that she is completely asymptomatic and would like to be discharged. Patient denies suicidal or homicidal ideation Related Data Home Medications Medication Instructions Recorded Confirmed fluoxetine 40 mg capsule 80 mg PO DAILY 08/25/23 11/29/23 lorazepam 0.5 mg tablet 0.5 mg PO BID PRN Anxiety 08/31/23 11/29/23 albuterol sulfate 90 mcg/actuation 2 inh inhalation Q4H PRN Shortness 09/17/23 11/29/23 aerosol inhaler (Ventolin HFA) Of Breath Or Wheezing famotidine 10 mg tablet 10 mg PO BID@0630,1630 09/17/23 11/29/23 montelukast 10 mg tablet 10 mg PO BEDTIME 09/17/23 11/29/23 atorvastatin 10 mg tablet 10 mg PO DAILY 10/04/23 11/29/23 benztropine 1 mg tablet 1 mg PO BID 10/04/23 11/29/23 metformin 500 mg tablet 500 mg PO BID 10/04/23 11/29/23 mirtazapine 7.5 mg tablet 7.5 mg PO BEDTIME 10/04/23 11/29/23 pantoprazole 40 mg tablet,delayed 40 mg PO DAILY@0630 10/04/23 11/29/23 release trazodone 150 mg tablet 150 mg PO BEDTIME 10/04/23 11/29/23 buspirone 15 mg tablet 15 mg PO DAILY 11/18/23 11/29/23 fluticasone 250 mcg-salmeterol 50 1 ea inhalation BID 11/18/23 11/29/23 mcg/dose blistr powdr for inhalation lisinopril 5 mg tablet 5 mg PO DAILY blood pressure 11/18/23 11/29/23 prazosin 2 mg capsule 4 mg PO BEDTIME 11/18/23 11/29/23 Previous Rx's Medication Instructions Recorded clozapine 100 mg tablet 100 mg PO BEDTIME 30 days #30 tabs 11/29/23 haloperidol 5 mg tablet 5 mg PO TID@0900,1530,2100 30 days 11/29/23 #90 tabs lactulose 20 gram/30 mL oral 20 g (30 mL) PO DAILY PRN 11/29/23 solution constipation 30 days #1,200 mL meclizine 50 mg tablet 50 mg PO BID PRN dizziness #10 tabs 11/29/23 Allergies Allergy/AdvReac Type Severity Reaction Status Date / Time azithromycin [AZITHROMYCIN] Allergy Severe Rash Verified 11/09/23 18:02 Fish Containing Products Allergy Severe Anaphylaxis Verified 11/09/23 18:02 codeine [Codeine] Allergy Intermediate Rash Verified 11/09/23 18:02 Penicillins Allergy Intermediate Rash Verified 11/09/23 18:02 prednisone [Prednisone] Allergy Intermediate Rash Verified 11/09/23 18:02 Sulfa (Sulfonamide Allergy Intermediate Rash Verified 11/09/23 18:02 Antibiotics) [Sulfa (Sulfonamides)] ziprasidone [From Geodon] Allergy Intermediate dysuria, Verified 11/09/23 18:02 rash Review of Systems Review of Systems: Constitutional : No Weight loss, No Fever, No Chills, No Night Sweats, No Fatigue, No Malaise ENT/Mouth : No Hearing loss, No Ear Pain, No Nasal Congestion, No Sinus Pain, No Hoarseness, No sore throat, No Rhinorrhea, No Swallowing Difficulty Eyes: No Eye Pain, No Swelling, No Redness, No Foreign Body, No Discharge, No Vision Changes Cardiovascular : No Chest Pain, No SOB, No Dyspnea on Exertion, No Orthopnea, No Edema, No Palpitations Respiratory : No Cough, No Sputum, No Wheezing, No Smoke Exposure, No Dyspnea Gastrointestinal : No Nausea, No Vomiting, No Diarrhea, No Constipation, No abdominal Pain, No Hematochezia, No Melena Genitourinary : no irregular bleeding, No Dysuria, No Urinary Frequency, No Hematuria, No Urinary Incontinence, No Urgency, No Flank Pain, No Urinary Flow Changes, No Hesitancy Musculoskeletal : No joint pain, No Myalgias, No Joint Swelling Skin : No Skin Lesions, No rash Neuro : No Weakness, No Numbness, No Paresthesias, No Loss of Consciousness, self-resolved Dizziness, No Headache Psych : Complaining of panic attack No Depression, No SI/HI/AH/VH, No Social Issues, Heme/Lymph: No Bruising, No Bleeding,No Lymphadenopathy Endocrine : No Polyuria, No Polydipsia, No Temperature Intolerance [facility] Past Medical History Medical History Suicidal ideation MDD (major depressive disorder), recurrent episode, severe Chest pain Acute anxiety COVID-19 Full body hives Major depression Dizziness Suicide attempt UTI (urinary tract infection) Acetaminophen overdose COVID History of attempted suicide History of non-suicidal self-harm Hypomagnesemia Suicide attempt Suicide attempt by acetaminophen overdose Acetaminophen overdose Depression Diabetes type 2, controlled Borderline personality disorder PTSD (post-traumatic stress disorder) Overdose GERD (gastroesophageal reflux disease) Mood disorder Hyperlipidemia Bronchitis Social History Social History Household Members: None Household Members Other:: senior living Housing: Other Housing Other:: Correction Do you presently have visiting nurse or other home services: No Unable to assess alcohol history related to: Unknown Alcohol intake: never Comment: sitter in room Patient Tobacco Use Status: Former Tobacco user Quit Date: NA Tobacco use type: Cigarette Cigarette Packs Per Day: 1 Cigarettes Per Day: 20.0 Years Smoked: 22 e-Cigarette/Vaping Use: Never Used Second Hand Smoke Exposure: No Substance Use Type: Marijuana Advance Directives: No Advance Directives Information Provided: No service: No Current occupational status: unemployed and disabled Sexual orientation: Straight/Heterosexual Physical Exam ED Vital Signs: Vital Signs - 24 hr 12/21/23 17:25 Temperature 98.6 F Pulse Rate 98 Respiratory Rate 16 Blood Pressure 182/92 H Pulse Oximetry 100 Oxygen Delivery Method Room Air BMI result Body Mass Index 40.8 Const Other: Appearance: Alert. Oriented X3. No acute distress. Eyes: Pupils equal, round and reactive to light. ENT: Pharynx normal. Neck: Normal inspection. Neck supple. No lymph nodes noted. No crepitus CVS: Normal heart rate and rhythm. Pulses normal. Normal S1 and S2 Respiratory: No respiratory distress. Breath sounds normal. No Wheezing. No rales Abdomen: Soft and nontender. No rigidity. No distention. Skin: Skin warm and dry. Normal skin color. Normal skin turgor. Extremities: No lower extremity edema. No Lacerations. No Rash Neuro: Oriented X 3. No motor deficit. No sensory deficit. Moving all extremities. No slurred speech. CN 2 through 12 grossly intact Psych: calm, cooperative, normal affect Course Course Course Narrative: -patient states that she had a panic attack and now feels well. Patient declined lab work. Patient agreeable to orthostatic vitals and EKG. -patient not SI or HI, patient did not request a care team consult. Medical Decision Making Medical Decision Making [facility] Narrative: -my interpretation of EKG: Sinus tachycardia, heart rate 101, no ST segment depression or elevation, no T-wave inversion, QTC 466 -orthostatic vitals negative, patient asymptomatic -discussed with the patient not to change her dose until she speaks to her provider, as abrupt changes in Clozaril can be harmful. Patient will call her psychiatrist tomorrow Differential Diagnosis Differential Diagnoses: The differential diagnosis associated with the presenta tion includes (Orthostatic hypotension, medication side effect, anxiety) Discharge Plan Discharge Clinical Impression: Dizziness, Anxiety Patient Disposition: Home, Self-Care Instructions: Dizziness (ED), Anxiety (ED) Additional Instructions: Please follow-up with your primary care physician tomorrow. If you have any worsening or new symptoms, please return to the emergency room or call 911 Prescriptions: No Action fluoxetine 40 mg capsule 80 mg PO DAILY lorazepam 0.5 mg tablet 0.5 mg PO BID PRN (Reason: Anxiety) fluticasone propion-salmeterol 250-50 mcg/dose blister with device 1 ea inhalation BID buspirone 15 mg tablet 15 mg PO DAILY lisinopril 5 mg tablet 5 mg PO DAILY prazosin 2 mg capsule 4 mg PO BEDTIME clozapine 100 mg Tablet 100 mg PO BEDTIME 30 Days Qty: 30 0RF haloperidol 5 mg Tablet 5 mg PO TID@0900,1530,2100 30 Days Qty: 90 0RF lactulose 20 gram/30 mL Solution 20 g PO DAILY PRN (Reason: constipation) 30 Days Qty: 1200 0RF famotidine 10 mg Tablet 10 mg PO BID@0630,1630 albuterol sulfate [Ventolin HFA] 90 mcg/actuation HFA aerosol inhaler 2 inh inhalation Q4H PRN (Reason: Shortness Of Breath Or Wheezing) montelukast 10 mg tablet 10 mg PO BEDTIME metformin 500 mg tablet 500 mg PO BID atorvastatin 10 mg tablet 10 mg PO DAILY pantoprazole 40 mg tablet,delayed release (DR/EC) 40 mg PO DAILY@0630 trazodone 150 mg tablet 150 mg PO BEDTIME benztropine 1 mg tablet 1 mg PO BID mirtazapine 7.5 mg tablet 7.5 mg PO BEDTIME meclizine 50 mg tablet 50 mg PO BID PRN (Reason: dizziness) Qty: 10 0RF
[2023-12-21 18:50] VITALS: BP 165/77; BP 184/93; PULSE 101; PULSE 109
== END 2023-12-21 19:12 | disposition home or self-care (01) ==
PROVIDERS: Emergency Provider Emergency Medicine
DX: R42 Dizziness and giddiness (principal); F41.9 Anxiety disorder, unspecified; E11.9 Type 2 diabetes mellitus without complications
CPT/HCPCS: 93005; 99283; 99284

== ENCOUNTER → 2023-12-21 18:00 | Outpatient (BNV) | payer MEDICARE, MEDICAID, SELFPAY | PROVIDERS: Emergency Provider Emergency Medicine; Visit Provider Internal Medicine Cardiovascular Disease | DX: R42 Dizziness and giddiness (principal) | CPT/HCPCS: 93010 ==

== ENCOUNTER 2023-12-23 16:27 | Emergency (ER) | payer MEDICARE, MEDICAID, SELFPAY ==
[2023-12-23 16:31] VITALS: BP 138/110; BP 155/92; PULSE 113; PULSE 119; RESP 18; TEMP 37.2; O2SAT 97; O2SAT 99; BMI 42.9
[2023-12-23 17:01] LABS: Appearance Urine Clear; Color Urine Yellow; Glucose Urine UA Negative (Negative); Leukocyte Esterase Urine Negative (Negative); Nitrite Urine Negative (Negative); Specific Gravity - Urine <= 1.005 (1.005-1.025); Urine Blood Negative (Negative); Urine Ketones Negative (Negative); Urine Protein Negative (Neg-Trace)
[2023-12-23 17:08] LABS: Amphetamine Screen Urine Not Detected (Not Detect); Barbiturates, Urine Not Detected (Not Detect); Benzodiazepines Screen Urine Not Detected (Not Detect); Cannabinoid Screen Urine Not Detected (Not Detect); Cocaine Screen Urine Not Detected (Not Detect); Fentanyl, urine Not Detected (Not Detect); Opiate Screen Urine Not Detected (Not Detect); Phencyclidine Screen Urine Not Detected (Not Detect)
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
--- NOTE | 2023-12-23 17:30 | ECG_ITS ---
Test Reason : DIZZINESS Blood Pressure : / mmHG Vent. Rate : 104 BPM Atrial Rate : 104 BPM P-R Int : 158 ms QRS Dur : 082 ms QT Int : 346 ms P-R-T Axes : 047 031 056 degrees QTc Int : 454 ms Sinus tachycardia Possible Left atrial enlargement Borderline ECG When compared with ECG of 21-DEC-2023 18:41, No significant change was found Referred By: Eileen Ryan Electronically Signed By:DONALD HOOKER MD
[2023-12-23 17:49] VITALS: BP 142/82; PULSE 102
[2023-12-23 17:50] VITALS: BP 149/85; PULSE 111
[2023-12-23] MEDS: Meclizine HCl 25 MG TABLET 50 MG PO (18:00)
--- NOTE | 2023-12-23 18:02 | PC.NURSE ---
pt medicated per MAR with 50mg of Meclizine for dizziness
--- NOTE | 2023-12-23 18:03 | PC.NURSE ---
pt wishes to go home- MD notified via [employer]
[2023-12-23 18:20] VITALS: BP 143/93; PULSE 102; RESP 16; TEMP 36.8; O2SAT 98
[2023-12-23 18:21] LABS: MANUAL DIFF FLAG NO
[2023-12-23 18:29] LABS: Basophils Absolute Auto 0.1 X10*3/uL (0.0-0.2); Basophils Percent Auto 0.7 % (0-2); Eosinophils Absolute Auto 0.3 X10*3/uL (0.0-0.4); Eosinophils Percent Auto 4.1 % (0-4); Hematocrit 31.2 % (37.0-47.0); Hemoglobin 9.3 g/dl (12.0-16.0); Imm Gran Abs Auto 0.04 X10*3/uL (0.00-0.03); Imm Gran Pct Auto 0.5 % (0.0-0.4); Lymphocytes Absolute Auto 1.5 X10*3/uL (1.2-4.9); Lymphocytes Percent Auto 20.9 % (20-40); Mean Corpuscular HGB Conc 29.8 g/dl (31.0-35.0); Mean Corpuscular Hemoglobin 24.3 pg (27.0-33.0); Mean Corpuscular Volume 81.5 fL (80.0-98.0); Monocytes Absolute Auto 0.7 X10*3/uL (0.1-1.2); Monocytes Percent Auto 9.2 % (2-11); Neutrophils Absolute Auto 4.8 x10*3/uL (2.0-8.3); Neutrophils Percent Auto 64.6 % (45-73); Platelet Count 341 X10*3/uL (160-400); Red Blood Count 3.83 X10*6/uL (4.20-5.50); Red Cell Distribution Width 15.8 % (11.0-16.0); White Blood Count 7.4 X10*3/uL (4.8-10.8)
[2023-12-23 18:45] LABS: Anion Gap 14 (12-20); Blood Urea Nitrogen 15 mg/dL (9-16); Calcium 9.9 mg/dL (8.4-10.2); Carbon Dioxide 25 mmol/L (22-29); Chloride 107 mmol/L (96-108); Creatinine Clr Calc Pharmacy 109.7; Estimated Glomerular Filt Rate > 60; Glucose Random 109 mg/dL (60-115); Sodium 142 mmol/L (135-145)
[2023-12-23 18:51] LABS: Troponin-I High Sensitivity < 2.7 ng/L (<3.5-17.0)
[2023-12-23] MEDS: 0.9 % Sodium Chloride 1,000 ML 999 ML IV (19:57)
[2023-12-23 20:03] VITALS: BP 137/94; PULSE 100; RESP 16; TEMP 36.6; O2SAT 96
--- NOTE | 2023-12-23 21:06 | PC.NURSE ---
500mls of NS infused, pt refused the rest. Neg orthos. OK for d/c per Dr. Ryan.
[2023-12-23 21:07] VITALS: BP 138/79; BP 145/80; PULSE 103; PULSE 105
== END 2023-12-23 21:22 | disposition home or self-care (01) ==
PROVIDERS: Emergency Provider Emergency Medicine
DX: S41.112A Laceration without foreign body of left upper arm, initial encounter (principal); S31.119A Laceration without foreign body of abdominal wall, unspecified quadrant without penetration into peritoneal cavity, initial encounter; I95.2 Hypotension due to drugs; R45.851 Suicidal ideations; R00.0 Tachycardia, unspecified; R10.9 Unspecified abdominal pain; F33.1 Major depressive disorder, recurrent, moderate; R42 Dizziness and giddiness; Y93.9 Activity, unspecified; X78.1XXA Intentional self-harm by knife, initial encounter; Y92.9 Unspecified place or not applicable; Y99.8 Other external cause status; Z79.899 Other long term (current) drug therapy
CPT/HCPCS: 36415; 80048; 80307; 81003; 84484; 85025; 93005; 96360; 99285; S9485

== ENCOUNTER → 2023-12-23 17:30 | Outpatient (BNV) | payer MEDICARE, MEDICAID, SELFPAY | PROVIDERS: Emergency Provider Emergency Medicine; Visit Provider Internal Medicine Cardiovascular Disease | DX: R42 Dizziness and giddiness (principal) | CPT/HCPCS: 93010 ==

== ENCOUNTER 2023-12-25 12:45 | Outpatient (REF) | payer MEDICARE, MEDICAID, SELFPAY ==
[2023-12-25 12:57] LABS: MANUAL DIFF FLAG NO
[2023-12-25 13:35] LABS: Basophils Percent Auto 0.5 % (0-2); Eosinophils Absolute Auto 0.3 X10*3/uL (0.0-0.4); Eosinophils Percent Auto 4.4 % (0-4); Imm Gran Abs Auto 0.06 X10*3/uL (0.00-0.03); Lymphocytes Absolute Auto 1.4 X10*3/uL (1.2-4.9); Lymphocytes Percent Auto 23.1 % (20-40); Mean Corpuscular HGB Conc 29.6 g/dl (31.0-35.0); Mean Corpuscular Volume 81.1 fL (80.0-98.0); Mean Platelet Volume 10.1 fL (9.4-12.3); Monocytes Absolute Auto 0.6 X10*3/uL (0.1-1.2); Monocytes Percent Auto 10.4 % (2-11); Neutrophils Absolute Auto 3.5 x10*3/uL (2.0-8.3); Neutrophils Percent Auto 60.6 % (45-73); Platelet Count 300 X10*3/uL (160-400); Red Blood Count 3.33 X10*6/uL (4.20-5.50); Red Cell Distribution Width 15.8 % (11.0-16.0); White Blood Count 5.9 X10*3/uL (4.8-10.8)
== END 2023-12-25 12:46 | disposition home or self-care (01) ==
LOC: HO.LABR 12:45
PROVIDERS: PCP Nurse Practitioner Family; Visit Provider Psychiatry & Neurology Psychiatry
DX: Z79.899 Other long term (current) drug therapy (principal)
CPT/HCPCS: 36415; 85025

== ENCOUNTER 2024-01-06 00:13 | Emergency (ER) | payer MEDICARE, MEDICAID, SELFPAY ==
--- NOTE | ~2024-01-06 | XR_ITS ---
EXAMINATION: XR CHEST CLINICAL INFORMATION: Shortness of breath. COMPARISON: 12/16/2023. TECHNIQUE: 2 views of the chest were obtained. FINDINGS: No significant abnormality is noted involving the heart, lungs, mediastinum, bony thorax or soft tissues. XR/XR chest 2V IMPRESSION: Unremarkable examination.
[2024-01-06 00:25] VITALS: BP 145/85; PULSE 100; RESP 19; TEMP 36.5; O2SAT 100; BMI 42.8
--- NOTE | 2024-01-06 02:48 | ED_ITS ---
HPI - General Adult General Chief complaint: Fall Stated complaint: fall & difficulty breathing Time Seen by Provider: 01/06/24 02:42 History of Present Illness HPI narrative: The patient is a 48-year-old woman with a history of chronic mental illness and very frequent emergency room visits who apparently fell from a sitting position while attempting to put out her cigarette. She says that she hit her head but had no loss of consciousness. She called an ambulance and was brought to the hospital. Here she has no complaints related to the injury. Related Data Home Medications Medication Instructions Recorded Confirmed fluoxetine 40 mg capsule 80 mg PO DAILY 08/25/23 11/29/23 lorazepam 0.5 mg tablet 0.5 mg PO BID PRN Anxiety 08/31/23 11/29/23 albuterol sulfate 90 mcg/actuation 2 inh inhalation Q4H PRN Shortness 09/17/23 11/29/23 aerosol inhaler (Ventolin HFA) Of Breath Or Wheezing famotidine 10 mg tablet 10 mg PO BID@0630,1630 09/17/23 11/29/23 montelukast 10 mg tablet 10 mg PO BEDTIME 09/17/23 11/29/23 atorvastatin 10 mg tablet 10 mg PO DAILY 10/04/23 11/29/23 benztropine 1 mg tablet 1 mg PO BID 10/04/23 11/29/23 metformin 500 mg tablet 500 mg PO BID 10/04/23 11/29/23 mirtazapine 7.5 mg tablet 7.5 mg PO BEDTIME 10/04/23 11/29/23 pantoprazole 40 mg tablet,delayed 40 mg PO DAILY@0630 10/04/23 11/29/23 release trazodone 150 mg tablet 150 mg PO BEDTIME 10/04/23 11/29/23 buspirone 15 mg tablet 15 mg PO DAILY 11/18/23 11/29/23 fluticasone 250 mcg-salmeterol 50 1 ea inhalation BID 11/18/23 11/29/23 mcg/dose blistr powdr for inhalation lisinopril 5 mg tablet 5 mg PO DAILY blood pressure 11/18/23 11/29/23 prazosin 2 mg capsule 4 mg PO BEDTIME 11/18/23 11/29/23 Previous Rx's Medication Instructions Recorded clozapine 100 mg tablet 100 mg PO BEDTIME 30 days #30 tabs 11/29/23 haloperidol 5 mg tablet 5 mg PO TID@0900,1530,2100 30 days 11/29/23 #90 tabs lactulose 20 gram/30 mL oral 20 g (30 mL) PO DAILY PRN 11/29/23 solution constipation 30 days #1,200 mL meclizine 50 mg tablet 50 mg PO BID PRN dizziness #10 tabs 11/29/23 clozapine 25 mg tablet (Clozaril) 75 mg (3 x 25 mg) PO BEDTIME 3 12/23/23 weeks #63 tabs Allergies Allergy/AdvReac Type Severity Reaction Status Date / Time azithromycin [AZITHROMYCIN] Allergy Severe Rash Verified 11/09/23 18:02 Fish Containing Products Allergy Severe Anaphylaxis Verified 11/09/23 18:02 codeine [Codeine] Allergy Intermediate Rash Verified 11/09/23 18:02 Penicillins Allergy Intermediate Rash Verified 11/09/23 18:02 prednisone [Prednisone] Allergy Intermediate Rash Verified 11/09/23 18:02 Sulfa (Sulfonamide Allergy Intermediate Rash Verified 11/09/23 18:02 Antibiotics) [Sulfa (Sulfonamides)] ziprasidone [From Geodon] Allergy Intermediate dysuria, Verified 11/09/23 18:02 rash Review of Systems 2 Review of Systems: Yes all other systems are reviewed and are negative PMFSH Past Medical History Medical History Suicidal ideation MDD (major depressive disorder), recurrent episode, severe Chest pain Acute anxiety COVID-19 Full body hives Major depression Dizziness Suicide attempt UTI (urinary tract infection) Acetaminophen overdose COVID History of attempted suicide History of non-suicidal self-harm Hypomagnesemia Suicide attempt Suicide attempt by acetaminophen overdose Acetaminophen overdose Depression Diabetes type 2, controlled Borderline personality disorder PTSD (post-traumatic stress disorder) Overdose GERD (gastroesophageal reflux disease) Mood disorder Hyperlipidemia Bronchitis Social History Social History Household Members: None Household Members Other:: residential Housing: Other Housing Other:: Detention Do you presently have visiting nurse or other home services: No Unable to assess alcohol history related to: Unknown Alcohol intake: former Comment: sitter in room Patient Tobacco Use Status: Former Tobacco user Quit Date: NA Tobacco use type: Cigarette Cigarette Packs Per Day: 1 Cigarettes Per Day: 20.0 Years Smoked: 22 e-Cigarette/Vaping Use: Never Used Second Hand Smoke Exposure: No Substance Use Type: Marijuana Advance Directives: No Advance Directives Information Provided: No service: No Current occupational status: unemployed and disabled Sexual orientation: Straight/Heterosexual Physical Exam ED Vital Signs: Vital Signs - 24 hr 01/06/24 00:25 01/06/24 03:08 01/06/24 05:04 Temperature 97.7 F 98.0 F 98.1 F Pulse Rate 100 114 H 109 H Respiratory Rate 19 18 16 Blood Pressure 145/85 H 133/82 143/90 H Pulse Oximetry 100 98 97 Oxygen Delivery Method Room Air Room Air Room Air 01/06/24 05:52 Temperature 98.1 F Pulse Rate 109 H Respiratory Rate 18 Blood Pressure 143/90 H Pulse Oximetry 97 Oxygen Delivery Method Room Air BMI result Body Mass Index 42.8 Const Other: The patient is an unkempt 48-year-old who was awake and alert. She did not seem in acute distress. HENMT Other: Face is symmetrical, mucous membranes moist Eyes Other: Pupils are round equal, conjunctivae clear, extraocular movements intact Neck Other: No C-spine tenderness, moving her neck easily, C-spine clinically clear Resp Other: No wheezes Effort & Inspection: normal respiratory effort Auscultation: clear to auscultation bilaterally Cardio Rate: tachycardic Rhythm: regular rhythm Heart sounds: S1 normal heart sound present and S2 normal heart sound present GI Other: Abdomen is soft and nontender Skin Other: Innumerable old scars on the extremities General skin exam: no rashes or lesions noted Trauma: no lacerations or abrasions Neuro Other: The patient is awake, alert, oriented. Cranial nerves grossly intact. Moving all extremities symmetrically. She seems reasonably steady with walking. Extrem Other: No signs of injury the extremities. Medical Decision Making Medical Decision Making MDM Narrative: Patient is a 48-year-old woman with chronic mental illness and innumerable ER visits who lives at a residential. She came here after a fall. She does not seem to have any injuries. She was tachycardic and so labs were done which were unremarkable including a negative D-dimer. She was observed for several hours. She said that she felt well and wanted to go home. She was discharged. The patient believes she is chronically tachycardic. Lab Data 01/06/24 05:10 01/06/24 04:49 Labs: Lab Results 01/06/24 01/06/24 01/06/24 Range/Units 03:09 04:49 05:10 WBC 7.6 (4.8-10.8) X10*3/uL RBC 3.36 L (4.20-5.50) X10*6/uL Hgb 8.2 L (12.0-16.0) g/dl Hct 27.5 L (37.0-47.0) % MCV 81.8 (80.0-98.0) fL MCH 24.4 L (27.0-33.0) pg MCHC 29.8 L (31.0-35.0) g/dl RDW 17.3 H (11.0-16.0) % Plt Count 302 (160-400) X10*3/uL MPV 9.9 (9.4-12.3) fL Immature Gran % (Auto) 1.1 H (0.0-0.4) % Neut % (Auto) 64.5 (45-73) % Lymph % (Auto) 18.6 L (20-40) % [place] % (Auto) 10.0 (2-11) % Eos % (Auto) 5.3 H (0-4) % Baso % (Auto) 0.5 (0-2) % Lymph # (Auto) 1.4 (1.2-4.9) X10*3/uL [place] # (Auto) 0.8 (0.1-1.2) X10*3/uL Eos # (Auto) 0.4 (0.0-0.4) X10*3/uL Baso # (Auto) 0.0 (0.0-0.2) X10*3/uL Abs Immat Gran (auto) 0.08 H (0.00-0.03) X10*3/uL Absolute Neuts (auto) 4.9 (2.0-8.3) x10*3/uL Absolute Nucleated RBC 0.000 (0.0-0.012) X10*3/uL Nucleated RBC % (auto) 0.0 (0.0-0.2) /100WBC PT 10.1 L (11.1-13.3) SEC INR 0.8 L (0.9-1.1) D-Dimer High Sensitivty < 150 NG/ML Sodium 139 (135-145) mmol/L Potassium 4.0 (3.3-5.1) mmol/L Chloride 108 (96-108) mmol/L Carbon Dioxide 21 L (22-29) mmol/L Anion Gap 14 (12-20) BUN 14 (9-16) mg/dL Creatinine 0.72 (0.5-1.4) mg/dL Estim Creat Clear Calc 120.2 Estimated GFR > 60 Random Glucose 132 H (60-115) mg/dL Calcium 9.2 D (8.4-10.2) mg/dL Magnesium 1.6 (1.6-2.6) mg/dL Total Bilirubin 0.2 (0.0-1.0) mg/dL Direct Bilirubin < 0.2 (0.0-0.5) mg/dL AST 28 (5-31) U/L ALT 41 H (0-31) U/L Alkaline Phosphatase 134 H (39-117) U/L Troponin I High Sens < 2.7 (<3.5-17.0) ng/L C-Reactive Protein 0.46 (< or = 0.50) mg/dL B-Natriuretic Peptide 13 (<100) pg/mL Total Protein 6.4 L (6.5-8.0) g/dL Albumin 3.6 (3.5-5.0) g/dL Urine Color Yellow Urine Appearance Clear Urine pH 6.0 (5.0-9.0) Ur Specific [place] 1.015 (1.005-1.025) Urine Protein Negative (Neg-Trace) mg/dL Urine Glucose (UA) Negative (Negative) mg/dL Urine Ketones Negative (Negative) mg/dL Urine Blood Negative (Negative) Urine Nitrite Negative (Negative) Ur Leukocyte Esterase Trace H (Negative) Urine RBC 0-2 (0-2) /HPF Urine WBC 0-5 (0-5) /HPF Ur Squamous Epith Cells 0-2 (0-2) /HPF Urine Bacteria Trace (None Seen) Hyaline Casts 0-2 (0-2) /LPF Urine Test NEGATIVE (NEGATIVE) Ethyl Alcohol < 10 mg/dL Influenza Type A (PCR) NEGATIVE (Negative) Influenza Type B (PCR) NEGATIVE (Negative) RSV RNA Qual (PCR) NEGATIVE (Negative) SARS-CoV-2 RNA (RT-PCR) NEGATIVE (Negative) Independent Interpretation I performed an independent interpretation of an: EKG Interpretation: EKG at 04:55 shows sinus tachycardia at 01:08. No change from previous. Discharge Plan Discharge Clinical Impression: Fall, Tachycardia Patient Disposition: Home, Self-Care Additional Instructions: Please continue your regular medications. Please try to reduce your smoking. Please follow-up with your regular providers. Return to the emergency room if worse. Prescriptions: No Action fluoxetine 40 mg capsule 80 mg PO DAILY lorazepam 0.5 mg tablet 0.5 mg PO BID PRN (Reason: Anxiety) fluticasone propion-salmeterol 250-50 mcg/dose blister with device 1 ea inhalation BID buspirone 15 mg tablet 15 mg PO DAILY lisinopril 5 mg tablet 5 mg PO DAILY prazosin 2 mg capsule 4 mg PO BEDTIME clozapine 100 mg Tablet 100 mg PO BEDTIME 30 Days Qty: 30 0RF haloperidol 5 mg Tablet 5 mg PO TID@0900,1530,2100 30 Days Qty: 90 0RF lactulose 20 gram/30 mL Solution 20 g PO DAILY PRN (Reason: constipation) 30 Days Qty: 1200 0RF clozapine [Clozaril] 25 mg tablet 75 mg PO BEDTIME 21 Days Qty: 63 0RF famotidine 10 mg Tablet 10 mg PO BID@0630,1630 albuterol sulfate [Ventolin HFA] 90 mcg/actuation HFA aerosol inhaler 2 inh inhalation Q4H PRN (Reason: Shortness Of Breath Or Wheezing) montelukast 10 mg tablet 10 mg PO BEDTIME metformin 500 mg tablet 500 mg PO BID atorvastatin 10 mg tablet 10 mg PO DAILY pantoprazole 40 mg tablet,delayed release (DR/EC) 40 mg PO DAILY@0630 trazodone 150 mg tablet 150 mg PO BEDTIME benztropine 1 mg tablet 1 mg PO BID mirtazapine 7.5 mg tablet 7.5 mg PO BEDTIME meclizine 50 mg tablet 50 mg PO BID PRN (Reason: dizziness) Qty: 10 0RF Referrals: Maribel Marquez, MEDICAL OFFICE SCHEDULER [Nurse Practitioner] - (tachycardia, smoking) Interventions: ED Discharge Assessment Last Done: 01/06/24 05:52 Discharge Date/Time: 01/06/24 05:53
[2024-01-06 03:08] VITALS: BP 133/82; PULSE 114; RESP 18; TEMP 36.7; O2SAT 98
[2024-01-06 03:15] LABS: Appearance Urine Clear; Color Urine Yellow; Glucose Urine UA Negative (Negative); Leukocyte Esterase Urine Trace (Negative); Nitrite Urine Negative (Negative); Specific Gravity - Urine 1.015 (1.005-1.025); UMIC TRIGGER UACC YES; Urine Blood Negative (Negative); Urine Ketones Negative (Negative); Urine Protein Negative (Neg-Trace)
[2024-01-06 03:17] LABS: Bacteria Urine Trace (None Seen); Hyaline Casts Urine 0-2 /LPF (0-2); RBC Urine 0-2 /HPF (0-2); Squamous Epithelial Cell Urine 0-2 /HPF (0-2); WBC Urine 0-5 /HPF (0-5)
--- NOTE | 2024-01-06 04:10 | ECG_ITS ---
Test Reason : CP Blood Pressure : / mmHG Vent. Rate : 108 BPM Atrial Rate : 108 BPM P-R Int : 156 ms QRS Dur : 084 ms QT Int : 354 ms P-R-T Axes : 057 032 058 degrees QTc Int : 474 ms Sinus tachycardia Otherwise normal ECG When compared with ECG of 23-DEC-2023 17:44, No significant change was found Referred By: Vito Mitchell Electronically Signed By:MAURI COLE
[2024-01-06 04:17] LABS: UPreg QC Valid YES; Urine Pregnancy NEGATIVE (NEGATIVE)
[2024-01-06 05:04] VITALS: BP 143/90; PULSE 109; RESP 16; TEMP 36.7; O2SAT 97
[2024-01-06 05:12] LABS: Alanine Aminotransferase 41 U/L (0-31); Albumin Level 3.6 g/dL (3.5-5.0); Alkaline Phosphatase 134 U/L (39-117); Anion Gap 14 (12-20); Aspartate Amino Transferase 28 U/L (5-31); Bilirubin Direct < 0.2 mg/dL (0.0-0.5); Bilirubin Total 0.2 mg/dL (0.0-1.0); Blood Urea Nitrogen 14 mg/dL (9-16); C Reactive Protein 0.46 mg/dL (< or = 0.50); Calcium 9.2 mg/dL (8.4-10.2); Carbon Dioxide 21 mmol/L (22-29); Chloride 108 mmol/L (96-108); Creatinine Clr Calc Pharmacy 120.2; Estimated Glomerular Filt Rate > 60; Ethanol < 10 mg/dL; Glucose Random 132 mg/dL (60-115); Magnesium 1.6 mg/dL (1.6-2.6); Sodium 139 mmol/L (135-145); Total Protein 6.4 g/dL (6.5-8.0)
[2024-01-06 05:15] LABS: Basophils Percent Auto 0.5 % (0-2); Eosinophils Absolute Auto 0.4 X10*3/uL (0.0-0.4); Eosinophils Percent Auto 5.3 % (0-4); Hematocrit 27.5 % (37.0-47.0); Hemoglobin 8.2 g/dl (12.0-16.0); Imm Gran Abs Auto 0.08 X10*3/uL (0.00-0.03); Imm Gran Pct Auto 1.1 % (0.0-0.4); Lymphocytes Absolute Auto 1.4 X10*3/uL (1.2-4.9); Lymphocytes Percent Auto 18.6 % (20-40); Mean Corpuscular HGB Conc 29.8 g/dl (31.0-35.0); Mean Corpuscular Hemoglobin 24.4 pg (27.0-33.0); Mean Corpuscular Volume 81.8 fL (80.0-98.0); Mean Platelet Volume 9.9 fL (9.4-12.3); Monocytes Absolute Auto 0.8 X10*3/uL (0.1-1.2); Neutrophils Absolute Auto 4.9 x10*3/uL (2.0-8.3); Neutrophils Percent Auto 64.5 % (45-73); Platelet Count 302 X10*3/uL (160-400); Red Blood Count 3.36 X10*6/uL (4.20-5.50); Red Cell Distribution Width 17.3 % (11.0-16.0); White Blood Count 7.6 X10*3/uL (4.8-10.8)
[2024-01-06 05:15] LABS: B Type Natriuretic Peptide 13 pg/mL (<100)
[2024-01-06 05:19] LABS: MANUAL DIFF FLAG NO
[2024-01-06 05:20] LABS: Troponin-I High Sensitivity < 2.7 ng/L (<3.5-17.0)
[2024-01-06 05:22] LABS: INTERNATIONAL NORM RATIO 0.8 (0.9-1.1); Prothrombin Time 10.1 SEC (11.1-13.3)
[2024-01-06 05:33] LABS: D Dimer High Sensitivity < 150 NG/ML
[2024-01-06 05:52] VITALS: BP 143/90; PULSE 109; RESP 18; TEMP 36.7; O2SAT 97
[2024-01-06 05:54] LABS: Influenza A PCR NEGATIVE (Negative); Influenza B PCR NEGATIVE (Negative); Resp Syncy Virus RNA Qual PCR NEGATIVE (Negative); SARS COV2 PCR INHOUSE NEGATIVE (Negative)
== END 2024-01-06 05:53 | disposition home or self-care (01) ==
PROVIDERS: Emergency Provider Emergency Medicine
DX: Z04.3 Encounter for examination and observation following other accident (principal); R00.0 Tachycardia, unspecified; E11.9 Type 2 diabetes mellitus without complications; Z91.81 History of falling; Z11.52 Encounter for screening for COVID-19; Z20.828 Contact with and (suspected) exposure to other viral communicable diseases
CPT/HCPCS: 0241U; 36415; 71046; 80048; 80076; 80307; 81001; 81025; 83735; 83880; 84484; 85025; 85379; 85610; 86140; 93005; 99284; 99285

== ENCOUNTER → 2024-01-06 04:10 | Outpatient (BNV) | payer MEDICARE, MEDICAID, SELFPAY | PROVIDERS: Emergency Provider Emergency Medicine; Visit Provider Internal Medicine | DX: R07.9 Chest pain, unspecified (principal); R00.0 Tachycardia, unspecified | CPT/HCPCS: 93010 ==

== ENCOUNTER 2024-01-08 10:49 | Outpatient (REF) | payer MEDICARE, MEDICAID, SELFPAY ==
[2024-01-08 11:12] LABS: MANUAL DIFF FLAG NO
[2024-01-08 12:35] LABS: Basophils Percent Auto 0.6 % (0-2); Eosinophils Absolute Auto 0.4 X10*3/uL (0.0-0.4); Eosinophils Percent Auto 5.1 % (0-4); Hematocrit 28.2 % (37.0-47.0); Hemoglobin 8.3 g/dl (12.0-16.0); Imm Gran Abs Auto 0.07 X10*3/uL (0.00-0.03); Lymphocytes Absolute Auto 1.1 X10*3/uL (1.2-4.9); Lymphocytes Percent Auto 16.4 % (20-40); Mean Corpuscular HGB Conc 29.4 g/dl (31.0-35.0); Mean Corpuscular Hemoglobin 24.1 pg (27.0-33.0); Mean Corpuscular Volume 81.7 fL (80.0-98.0); Mean Platelet Volume 9.8 fL (9.4-12.3); Monocytes Absolute Auto 0.8 X10*3/uL (0.1-1.2); Monocytes Percent Auto 11.1 % (2-11); Neutrophils Absolute Auto 4.5 x10*3/uL (2.0-8.3); Neutrophils Percent Auto 65.8 % (45-73); Platelet Count 330 X10*3/uL (160-400); Red Blood Count 3.45 X10*6/uL (4.20-5.50); Red Cell Distribution Width 17.2 % (11.0-16.0); White Blood Count 6.8 X10*3/uL (4.8-10.8)
== END 2024-01-08 10:50 | disposition home or self-care (01) ==
LOC: HO.LAB 10:49
PROVIDERS: PCP Nurse Practitioner Family; Visit Provider Psychiatry & Neurology Psychiatry
DX: Z79.899 Other long term (current) drug therapy (principal)
CPT/HCPCS: 36415; 85025

== ENCOUNTER 2024-01-09 19:41 | Emergency (ER) | payer MEDICARE, MEDICAID, SELFPAY ==
[2024-01-09 20:01] VITALS: BP 167/97; PULSE 116; RESP 18; TEMP 36.5; O2SAT 96; BMI 40.5
[2024-01-09 20:38] LABS: Appearance Urine Clear; Color Urine Yellow; Glucose Urine UA Negative (Negative); Leukocyte Esterase Urine Negative (Negative); Nitrite Urine Negative (Negative); Urine Blood Negative (Negative); Urine Ketones Negative (Negative); Urine Protein Negative (Neg-Trace)
[2024-01-09 20:41] LABS: Amphetamine Screen Urine Not Detected (Not Detect); Barbiturates, Urine Not Detected (Not Detect); Benzodiazepines Screen Urine Not Detected (Not Detect); Cannabinoid Screen Urine Not Detected (Not Detect); Cocaine Screen Urine Not Detected (Not Detect); Fentanyl, urine Not Detected (Not Detect); Opiate Screen Urine Not Detected (Not Detect); Phencyclidine Screen Urine Not Detected (Not Detect)
[2024-01-09 21:10] LABS: UPreg QC Valid YES; Urine Pregnancy NEGATIVE (NEGATIVE)
[2024-01-09 21:54] LABS: MANUAL DIFF FLAG NO
[2024-01-09 21:56] LABS: Basophils Percent Auto 0.5 % (0-2); Eosinophils Absolute Auto 0.5 X10*3/uL (0.0-0.4); Eosinophils Percent Auto 5.6 % (0-4); Hematocrit 29.1 % (37.0-47.0); Hemoglobin 8.6 g/dl (12.0-16.0); Imm Gran Abs Auto 0.06 X10*3/uL (0.00-0.03); Imm Gran Pct Auto 0.7 % (0.0-0.4); Lymphocytes Absolute Auto 1.8 X10*3/uL (1.2-4.9); Lymphocytes Percent Auto 21.8 % (20-40); Mean Corpuscular HGB Conc 29.6 g/dl (31.0-35.0); Mean Corpuscular Hemoglobin 24.2 pg (27.0-33.0); Mean Corpuscular Volume 81.7 fL (80.0-98.0); Monocytes Absolute Auto 0.9 X10*3/uL (0.1-1.2); Monocytes Percent Auto 10.5 % (2-11); Neutrophils Percent Auto 60.9 % (45-73); Platelet Count 338 X10*3/uL (160-400); Red Blood Count 3.56 X10*6/uL (4.20-5.50); White Blood Count 8.3 X10*3/uL (4.8-10.8)
--- NOTE | 2024-01-09 22:10 | ECG_ITS ---
Test Reason : CHEST PAIN Blood Pressure : / mmHG Vent. Rate : 104 BPM Atrial Rate : 104 BPM P-R Int : 150 ms QRS Dur : 080 ms QT Int : 350 ms P-R-T Axes : 045 014 053 degrees QTc Int : 460 ms Sinus tachycardia Otherwise normal ECG When compared with ECG of 06-JAN-2024 04:55, No significant change was found Referred By: Milton Stevens Electronically Signed By:Fabricio Kay
--- NOTE | 2024-01-09 22:10 | ED.GENADULT ---
HPI - General Adult General Chief complaint: Psychiatric Symptoms Stated complaint: VOICES IN HER HEAD TELLING HER TO ISAEL PHILLIPS Time Seen by Provider: 01/09/24 20:05 Source: patient and RN notes reviewed Mode of arrival: EMS Limitations: no limitations History of Present Illness HPI narrative: 48-year-old female presents for evaluation of chest pain and auditory hallucinations Per EMS, care home staff called EMS due to command auditory hallucinations. When I evaluated the patient she states ?I do not even know why I am back here, my hallucinations are fine, I am having chest pain. ? Patient reports that her pain started earlier today while she was watching TV She denies any suicidal ideations Apparently she told the nurse in the palm that she had plans to kill herself, but she denies this to me She has previously attempted overdose in the past The patient is adamant she is only here today for chest pain Related Data Home Medications Medication Instructions Recorded Confirmed fluoxetine 40 mg capsule 80 mg PO DAILY 08/25/23 01/09/24 lorazepam 0.5 mg tablet 0.5 mg PO BID PRN Anxiety 08/31/23 01/09/24 albuterol sulfate 90 mcg/actuation 2 inh inhalation Q4H PRN Shortness 09/17/23 01/09/24 aerosol inhaler (Ventolin HFA) Of Breath Or Wheezing famotidine 10 mg tablet 10 mg PO BID@0630,1630 09/17/23 01/09/24 montelukast 10 mg tablet 10 mg PO BEDTIME 09/17/23 01/09/24 atorvastatin 10 mg tablet 10 mg PO DAILY 10/04/23 01/09/24 benztropine 1 mg tablet 1 mg PO BID 10/04/23 01/09/24 metformin 500 mg tablet 500 mg PO BID 10/04/23 01/09/24 pantoprazole 40 mg tablet,delayed 40 mg PO DAILY@0630 10/04/23 01/09/24 release fluticasone 250 mcg-salmeterol 50 1 ea inhalation BID 11/18/23 01/09/24 mcg/dose blistr powdr for inhalation lisinopril 5 mg tablet 5 mg PO DAILY blood pressure 11/18/23 01/09/24 prazosin 2 mg capsule 4 mg PO BEDTIME 11/18/23 01/09/24 buspirone 10 mg tablet 10 mg PO BID 01/09/24 01/09/24 fluphenazine HCl 5 mg tablet 5 mg PO BID 01/09/24 01/09/24 mirtazapine 15 mg tablet 15 mg PO BEDTIME 01/09/24 01/09/24 Previous Rx's Medication Instructions Recorded haloperidol 5 mg tablet 5 mg PO TID@0900,1530,2100 30 days 11/29/23 #90 tabs lactulose 20 gram/30 mL oral 20 g (30 mL) PO DAILY PRN 11/29/23 solution constipation 30 days #1,200 mL clozapine 25 mg tablet (Clozaril) 75 mg (3 x 25 mg) PO BEDTIME 3 12/23/23 weeks #63 tabs Allergies Allergy/AdvReac Type Severity Reaction Status Date / Time azithromycin [AZITHROMYCIN] Allergy Severe Rash Verified 11/09/23 18:02 Fish Containing Products Allergy Severe Anaphylaxis Verified 11/09/23 18:02 codeine [Codeine] Allergy Intermediate Rash Verified 11/09/23 18:02 Penicillins Allergy Intermediate Rash Verified 11/09/23 18:02 prednisone [Prednisone] Allergy Intermediate Rash Verified 11/09/23 18:02 Sulfa (Sulfonamide Allergy Intermediate Rash Verified 11/09/23 18:02 Antibiotics) [Sulfa (Sulfonamides)] ziprasidone [From Geodon] Allergy Intermediate dysuria, Verified 11/09/23 18:02 rash Review of Systems Constitutional: Constitutional: Denies body ache(s), Denies chills and Denies fever(s) Eyes: Eyes: Denies blurry vision ENT: Denies sore throat Cardiovascular: Cardiovascular: Reports chest pain and Denies dyspnea Respiratory: Respiratory: Denies cough and Denies dyspnea Musculoskeletal: Musculoskeletal: Denies back pain Integumentary/Breasts: Skin/Breast: Denies rash Psychiatric: Psychiatric: Denies anxiety, Denies depression, Denies auditory hallucinations and Denies suicidal ideation PMFSH Past Medical History Medical History Suicidal ideation MDD (major depressive disorder), recurrent episode, severe Chest pain Acute anxiety COVID-19 Full body hives Major depression Dizziness Suicide attempt UTI (urinary tract infection) Acetaminophen overdose COVID History of attempted suicide History of non-suicidal self-harm Hypomagnesemia Suicide attempt Suicide attempt by acetaminophen overdose Acetaminophen overdose Depression Diabetes type 2, controlled Borderline personality disorder PTSD (post-traumatic stress disorder) Overdose GERD (gastroesophageal reflux disease) Mood disorder Hyperlipidemia Bronchitis Social History Social History Household Members: None Household Members Other:: care home Housing: Other Housing Other:: Care Home Do you presently have visiting nurse or other home services: No Unable to assess alcohol history related to: Unknown Alcohol intake: former Comment: sitter in room Patient Tobacco Use Status: Former Tobacco user Quit Date: NA Tobacco use type: Cigarette Cigarette Packs Per Day: 1 Cigarettes Per Day: 20.0 Years Smoked: 22 e-Cigarette/Vaping Use: Never Used Second Hand Smoke Exposure: No Substance Use Type: Marijuana Advance Directives: No Advance Directives Information Provided: No service: No Current occupational status: unemployed and disabled Sexual orientation: Straight/Heterosexual Physical Exam ED Vital Signs: Vital Signs - 24 hr 01/09/24 20:01 Temperature 97.7 F Pulse Rate 116 H Respiratory Rate 18 Blood Pressure 167/97 H Pulse Oximetry 96 Oxygen Delivery Method Room Air BMI result Body Mass Index 40.5 Const General: healthy appearing, comfortable, no acute distress, alert and awake Nutritional Appearance: well nourished Orientation/consciousness: patient oriented x3 HENMT Head: Yes normocephalic and Yes atraumatic Eyes Eyelids: Yes eyelids normal Conjunctivae: conjunctivae normal Sclerae: sclerae normal Corneas: corneas normal Pupils: Equal, round and reactive pupils present EOM: EOMs intact bilaterally Neck Neck: Yes full ROM Resp Effort & Inspection: normal respiratory effort, able to speak in complete sentences, no audible wheezes and not labored Auscultation: clear to auscultation bilaterally Cardio Rate: regular rate Rhythm: regular rhythm GI Inspection: No distended Palpation (GI): Soft to palpation, not firm, nontender, no guarding and not rigid Skin General skin exam: elasticity normal Neuro General: patient oriented x3 Cranial nerves: Yes Equal, round and reactive pupils present and Yes Bilaterally intact EOM present Cognition (Neuro): normal cognition Extrem Other: Moving all extremities well without any obvious deformities Course Reevaluation(s) Reevaluation #1: Patient's medical workup unremarkable, EKG nonischemic, she reports she has no longer feeling any chest pain or shortness of breath. On re-evaluation the patient continues to deny SI and there is no indication for full care team evaluation. The care team, just still discussed with the patient to see if she would any concerns and the patient states that she does not and would like to be discharged home. The patient is stable for discharge home at this point Time: 22:56 Medical Decision Making Medical Decision Making [facility] Narrative: 48-year-old female who was well known to this emergency department for psychiatric issues including suicidal ideation and auditory hallucinations. Currently she denies any symptoms to me. She is complaining of chest pain. Plan for labs and EKG. Once medically cleared will re-evaluate the patient to determine if she needs care team evaluation Differential Diagnosis Differential Diagnoses: The differential diagnosis associated with the presentation includes Chest pain ACS Chest wall pain Costochondritis Bronchitis Depression Suicidal ideation Lab Data [facility] Lab Attestation statement: I reviewed the patient's lab results. Patient has no leukocytosis, she has a normocytic anemia consistent with her recent baseline. Chemistries are currently pending 01/09/24 21:46 01/09/24 21:47 Labs: Lab Results 01/09/24 01/09/24 01/09/24 Range/Units 20:15 21:46 21:47 WBC 8.3 (4.8-10.8) X10*3/uL RBC 3.56 L (4.20-5.50) X10*6/uL Hgb 8.6 L (12.0-16.0) g/dl Hct 29.1 L (37.0-47.0) % MCV 81.7 (80.0-98.0) fL MCH 24.2 L (27.0-33.0) pg MCHC 29.6 L (31.0-35.0) g/dl RDW 17.0 H (11.0-16.0) % Plt Count 338 (160-400) X10*3/uL MPV 9.0 L (9.4-12.3) fL Immature Gran % (Auto) 0.7 H (0.0-0.4) % Neut % (Auto) 60.9 (45-73) % Lymph % (Auto) 21.8 (20-40) % [place] % (Auto) 10.5 (2-11) % Eos % (Auto) 5.6 H (0-4) % Baso % (Auto) 0.5 (0-2) % Lymph # (Auto) 1.8 (1.2-4.9) X10*3/uL [place] # (Auto) 0.9 (0.1-1.2) X10*3/uL Eos # (Auto) 0.5 H (0.0-0.4) X10*3/uL Baso # (Auto) 0.0 (0.0-0.2) X10*3/uL Abs Immat Gran (auto) 0.06 H (0.00-0.03) X10*3/uL Absolute Neuts (auto) 5.0 (2.0-8.3) x10*3/uL Absolute Nucleated RBC 0.000 (0.0-0.012) X10*3/uL Nucleated RBC % (auto) 0.0 (0.0-0.2) /100WBC Sodium 141 (135-145) mmol/L Potassium 3.8 (3.3-5.1) mmol/L Chloride 109 H (96-108) mmol/L Carbon Dioxide 23 (22-29) mmol/L Anion Gap 13 (12-20) BUN 9 (9-16) mg/dL Creatinine 0.87 (0.5-1.4) mg/dL Estim Creat Clear Calc 96.5 Estimated GFR > 60 Random Glucose 129 H (60-115) mg/dL Calcium 8.7 (8.4-10.2) mg/dL Total Bilirubin 0.2 (0.0-1.0) mg/dL AST 28 (5-31) U/L ALT 41 H (0-31) U/L Alkaline Phosphatase 155 H (39-117) U/L Total Protein 7.1 (6.5-8.0) g/dL Albumin 4.2 (3.5-5.0) g/dL Urine Color Yellow Urine Appearance Clear Urine pH 8.0 (5.0-9.0) Ur Specific [place] 1.010 (1.005-1.025) Urine Protein Negative (Neg-Trace) mg/dL Urine Glucose (UA) Negative (Negative) mg/dL Urine Ketones Negative (Negative) mg/dL Urine Blood Negative (Negative) Urine Nitrite Negative (Negative) Ur Leukocyte Esterase Negative (Negative) Urine Test NEGATIVE (NEGATIVE) Salicylates < 5.0 L (15-30) mg/dL Urine Opiates Screen Not Detected (Not Detect) Urine Fentanyl Screen Not Detected (Not Detect) Acetaminophen < 3 (<30) mcg/mL Ur Barbiturates Screen Not Detected (Not Detect) Ur Phencyclidine Scrn Not Detected (Not Detect) Ur Amphetamines Screen Not Detected (Not Detect) U Benzodiazepines Scrn Not Detected (Not Detect) Urine Cocaine Screen Not Detected (Not Detect) U Marijuana (THC) Screen Not Detected (Not Detect) Ethyl Alcohol < 10 mg/dL Discharge Plan Discharge Clinical Impression: Chest pain Patient Disposition: Home, Self-Care Instructions: Chest Pain (ED) Additional Instructions: Your workup in the ER today was reassuring. This includes your blood work, EKG Follow-up with your primary doctor Return for new or worsening symptoms Prescriptions: No Action fluoxetine 40 mg capsule 80 mg PO DAILY lorazepam 0.5 mg tablet 0.5 mg PO BID PRN (Reason: Anxiety) fluticasone propion-salmeterol 250-50 mcg/dose blister with device 1 ea inhalation BID lisinopril 5 mg tablet 5 mg PO DAILY prazosin 2 mg capsule 4 mg PO BEDTIME haloperidol 5 mg Tablet 5 mg PO TID@0900,1530,2100 30 Days Qty: 90 0RF lactulose 20 gram/30 mL Solution 20 g PO DAILY PRN (Reason: constipation) 30 Days Qty: 1200 0RF clozapine [Clozaril] 25 mg tablet 75 mg PO BEDTIME 21 Days Qty: 63 0RF famotidine 10 mg Tablet 10 mg PO BID@0630,1630 albuterol sulfate [Ventolin HFA] 90 mcg/actuation HFA aerosol inhaler 2 inh inhalation Q4H PRN (Reason: Shortness Of Breath Or Wheezing) montelukast 10 mg tablet 10 mg PO BEDTIME metformin 500 mg tablet 500 mg PO BID atorvastatin 10 mg tablet 10 mg PO DAILY pantoprazole 40 mg tablet,delayed release (DR/EC) 40 mg PO DAILY@0630 benztropine 1 mg tablet 1 mg PO BID buspirone [BuSpar] 10 mg Tablet 10 mg PO BID mirtazapine 15 mg Tablet 15 mg PO BEDTIME fluphenazine HCl 5 mg tablet 5 mg PO BID Interventions: [place]-Suicide Risk Severity Scale Last Done: 01/09/24 22:48
[2024-01-09 22:26] LABS: Acetaminophen LAB < 3 mcg/mL (<30); Salicylate < 5.0 mg/dL (15-30)
[2024-01-09 22:26] LABS: Alanine Aminotransferase 41 U/L (0-31); Albumin Level 4.2 g/dL (3.5-5.0); Alkaline Phosphatase 155 U/L (39-117); Anion Gap 13 (12-20); Aspartate Amino Transferase 28 U/L (5-31); Bilirubin Total 0.2 mg/dL (0.0-1.0); Blood Urea Nitrogen 9 mg/dL (9-16); Calcium 8.7 mg/dL (8.4-10.2); Carbon Dioxide 23 mmol/L (22-29); Chloride 109 mmol/L (96-108); Creatinine Clr Calc Pharmacy 96.5; Estimated Glomerular Filt Rate > 60; Ethanol < 10 mg/dL; Glucose Random 129 mg/dL (60-115); Potassium 3.8 mmol/L (3.3-5.1); Sodium 141 mmol/L (135-145); Total Protein 7.1 g/dL (6.5-8.0)
[2024-01-09 22:58] VITALS: BP 152/89; PULSE 107; RESP 18; TEMP 36.6; O2SAT 98
== END 2024-01-09 23:12 | disposition home or self-care (01) ==
PROVIDERS: Emergency Provider Emergency Medicine
DX: R07.9 Chest pain, unspecified (principal); R44.0 Auditory hallucinations; E11.8 Type 2 diabetes mellitus with unspecified complications; Z79.899 Other long term (current) drug therapy
CPT/HCPCS: 36415; 80053; 80143; 80179; 80307; 81003; 81025; 85025; 93005; 99284; S9485

== ENCOUNTER → 2024-01-09 22:10 | Outpatient (BNV) | payer MEDICARE, MEDICAID, SELFPAY | PROVIDERS: Emergency Provider Emergency Medicine; Visit Provider Internal Medicine Cardiovascular Disease | DX: R07.9 Chest pain, unspecified (principal) | CPT/HCPCS: 93010 ==

== ENCOUNTER 2024-01-12 20:31 | Emergency (ER) | payer MEDICARE, MEDICAID, SELFPAY ==
--- NOTE | 2024-01-12 | ECG_ITS ---
Test Reason : DIZZY Blood Pressure : / mmHG Vent. Rate : 116 BPM Atrial Rate : 116 BPM P-R Int : 152 ms QRS Dur : 082 ms QT Int : 340 ms P-R-T Axes : 063 053 076 degrees QTc Int : 472 ms Sinus tachycardia Otherwise normal ECG When compared with ECG of 09-JAN-2024 22:27, No significant change was found Referred By: Generic ED Physician Electronically Signed By:Fabricio Kay
--- NOTE | ~2024-01-12 | XR_ITS ---
EXAMINATION: XR CHEST CLINICAL INFORMATION: Dizziness. COMPARISON: None available. TECHNIQUE: 2 views of the chest were obtained. FINDINGS: No significant abnormality is noted involving the heart, lungs, mediastinum, bony thorax or soft tissues. XR/XR chest 2V IMPRESSION: Unremarkable chest examination.
[2024-01-12 20:30] VITALS: BP 132/55; BP 180/60; PULSE 120; PULSE 134; RESP 18; TEMP 36.9; O2SAT 94; O2SAT 98
[2024-01-12 20:31] VITALS: BMI 40.5
--- NOTE | 2024-01-12 20:48 | ED_ITS ---
HPI - General Adult General Chief complaint: Fall Stated complaint: back pain after fall Time Seen by Provider: 01/12/24 20:46 Source: patient and EMS Mode of arrival: EMS Limitations: no limitations History of Present Illness HPI narrative: Patient is a 48 year old assigned female at with a history of MDD, DM, and anemia presenting to the emergency department today with mid back pain. Patient states that she was trying to put her shoes on when she fell over and hurt her middle back. Patient states that she was somewhat dizzy before the fall but her dizziness is better and her back pain is already starting to resolve. Patient denies any head strike, loss of consciousness, lightheadedness, abdominal pain, nausea, vomiting, fever, chills, blurry vision, double vision, loss of vision, chest pain, difficulty breathing, shortness of breath, night sweats, pain with urination, increased urinary frequency, increased urinary urgency, blood in her urine or stool, syncope or a near syncopal episode, bowel incontinence, bladder incontinence, bowel retention, bladder retention, or any other complaints at this time. Onset (ago): minute(s) Location: back Relieving factors: none Exacerbating factors: none Associated symptoms: denies other symptoms Treatments prior to arrival: none Related Data Home Medications Medication Instructions Recorded Confirmed fluoxetine 40 mg capsule 80 mg PO DAILY 08/25/23 01/09/24 lorazepam 0.5 mg tablet 0.5 mg PO BID PRN Anxiety 08/31/23 01/09/24 albuterol sulfate 90 mcg/actuation 2 inh inhalation Q4H PRN Shortness 09/17/23 01/09/24 aerosol inhaler (Ventolin HFA) Of Breath Or Wheezing famotidine 10 mg tablet 10 mg PO BID@0630,1630 09/17/23 01/09/24 montelukast 10 mg tablet 10 mg PO BEDTIME 09/17/23 01/09/24 atorvastatin 10 mg tablet 10 mg PO DAILY 10/04/23 01/09/24 benztropine 1 mg tablet 1 mg PO BID 10/04/23 01/09/24 metformin 500 mg tablet 500 mg PO BID 10/04/23 01/09/24 pantoprazole 40 mg tablet,delayed 40 mg PO DAILY@0630 10/04/23 01/09/24 release fluticasone 250 mcg-salmeterol 50 1 ea inhalation BID 11/18/23 01/09/24 mcg/dose blistr powdr for inhalation lisinopril 5 mg tablet 5 mg PO DAILY blood pressure 11/18/23 01/09/24 prazosin 2 mg capsule 4 mg PO BEDTIME 11/18/23 01/09/24 buspirone 10 mg tablet 10 mg PO BID 01/09/24 01/09/24 fluphenazine HCl 5 mg tablet 5 mg PO BID 01/09/24 01/09/24 mirtazapine 15 mg tablet 15 mg PO BEDTIME 01/09/24 01/09/24 Previous Rx's Medication Instructions Recorded haloperidol 5 mg tablet 5 mg PO TID@0900,1530,2100 30 days 11/29/23 #90 tabs lactulose 20 gram/30 mL oral 20 g (30 mL) PO DAILY PRN 11/29/23 solution constipation 30 days #1,200 mL clozapine 25 mg tablet (Clozaril) 75 mg (3 x 25 mg) PO BEDTIME 3 12/23/23 weeks #63 tabs Allergies Allergy/AdvReac Type Severity Reaction Status Date / Time azithromycin [AZITHROMYCIN] Allergy Severe Rash Verified 11/09/23 18:02 Fish Containing Products Allergy Severe Anaphylaxis Verified 11/09/23 18:02 codeine [Codeine] Allergy Intermediate Rash Verified 11/09/23 18:02 Penicillins Allergy Intermediate Rash Verified 11/09/23 18:02 prednisone [Prednisone] Allergy Intermediate Rash Verified 11/09/23 18:02 Sulfa (Sulfonamide Allergy Intermediate Rash Verified 11/09/23 18:02 Antibiotics) [Sulfa (Sulfonamides)] ziprasidone [From Geodon] Allergy Intermediate dysuria, Verified 11/09/23 18:02 rash Review of Systems 2 Constitutional: Constitutional: Reports no additional constitutional complaints, Denies chills, Denies fever(s) and Denies night sweats Eyes: Eyes: Reports no additional eye complaints, Denies blurry vision, Denies change in vision, Denies diplopia, Denies eye discharge, Denies loss of vision and Denies eye pain ENT: Reports dizziness (resolving) Cardiovascular: Cardiovascular: Reports no additional cardiovascular complaints, Denies chest pain, Denies lightheadedness, Denies Loss of Consciousness and Denies dyspnea Respiratory: Respiratory: Reports no additional respiratory complaints and Denies dyspnea Gastrointestinal: Gastrointestinal: Reports no additional gastrointestinal complaints, Denies abdominal pain, Denies melena, Denies hematochezia, Denies change in bowel habits and Denies change in stool character Genitourinary: Genitourinary: Denies hematuria, Denies urinary frequency, Denies dysuria, Denies urinary incontinence, Denies urinary hesitancy and Denies urinary urgency Musculoskeletal: Musculoskeletal: Reports no additional musculoskeletal complaints, Reports back pain (resolving), Denies numbness and Denies tingling Neurologic: Reports dizziness (resolving), Denies loss of vision, Denies numbness and Denies tingling Psychiatric: Psychiatric: Reports no additional psychiatric complaints Endocrine: Endocrine: Reports no additional endocrine complaints Hematologic/Lymphatic: Hematologic/Lymphatic: Reports no additional hematologic/lymphatic complaints Allergic/Immunologic: Allergic/Immunologic: Reports no additional allergic/immunologic complaints PMFSH Past Medical History Attestation statement: The following information was validated with the patient. Source: old records reviewed and nursing notes reviewed Medical History Suicidal ideation MDD (major depressive disorder), recurrent episode, severe Chest pain Acute anxiety COVID-19 Full body hives Major depression Dizziness Suicide attempt UTI (urinary tract infection) Acetaminophen overdose COVID History of attempted suicide History of non-suicidal self-harm Hypomagnesemia Suicide attempt Suicide attempt by acetaminophen overdose Acetaminophen overdose Depression Diabetes type 2, controlled Borderline personality disorder PTSD (post-traumatic stress disorder) Overdose GERD (gastroesophageal reflux disease) Mood disorder Hyperlipidemia Bronchitis Social History Social History Household Members: None Household Members Other:: longterm Housing: Other Housing Other:: Custodial Do you presently have visiting nurse or other home services: No Unable to assess alcohol history related to: Unknown Alcohol intake: former Comment: sitter in room Patient Tobacco Use Status: Former Tobacco user Quit Date: NA Tobacco use type: Cigarette Cigarette Packs Per Day: 1 Cigarettes Per Day: 20.0 Years Smoked: 22 Smoked in Last 30 Days: No e-Cigarette/Vaping Use: Never Used Second Hand Smoke Exposure: No Use of substances other than those prescribed or required for medical reasons: No Substance Use Type: Marijuana Advance Directives: No Advance Directives Information Provided: No service: No Current occupational status: unemployed and disabled Sexual orientation: Straight/Heterosexual Physical Exam ED Vital Signs: Vital Signs - 24 hr 01/12/24 20:30 01/12/24 22:24 Temperature 98.5 F 98 F Pulse Rate 120 H 105 H Respiratory Rate 18 18 Blood Pressure 132/55 L 158/88 H Pulse Oximetry 94 95 Oxygen Delivery Method Room Air Room Air BMI result Body Mass Index 40.5 Const General: cooperative, no acute distress, alert and awake Nutritional Appearance: well nourished Orientation/consciousness: patient oriented x3 Limitations: no limitations HENMT Head: Yes normal to inspection and Yes atraumatic Ears: hearing grossly normal bilaterally and external ears normal General nose exam: Normal external nose present, no nasal discharge noted and no epistaxis Face and sinus: Yes normal facial exam, No abrasion and No laceration Mouth: Normal oral and palatal mucosa present, no drooling and no muffled voice Eyes General: appearance normal, both eyes and all related structures Periorbital: periorbital findings normal Eyelids: Yes eyelids normal Conjunctivae: conjunctivae normal Pupils: Equal, round and reactive pupils present EOM: EOMs intact bilaterally Neck Neck: Yes normal visual inspection, Yes full ROM and Yes no lymphadenopathy Chest Chest palpation & inspection: normal inspection of the chest Resp Effort & Inspection: normal respiratory effort and able to speak in complete sentences GI Inspection: Yes normal to inspection General: Yes no CVA tenderness Back/Spine/Pelvis Back: no CVA tenderness Cervical Spine: normal cervical lordosis and cervical ROM normal Thoracic/Lumbar Spine: thoracic and lumbar spine normal to inspection and thoraco-lumbar ROM normal Pelvis: no pain with anterior-posterior compression Neuro General: patient oriented x3 and moves all extremities Cranial nerves: Yes Equal, round and reactive pupils present Cognition (Neuro): normal cognition Motor exam (neuro): 5/5 motor strength present throughout Sensory Exam: Normal double simultaneous stimulation for sensation Coordination: [id number] test normal Extrem General: Yes normal to inspection, Yes full ROM and Yes capillary refill normal Psych Appearance: grossly normal Mental Status: mental status grossly normal Affect: normal affect Attitude: cooperative Thought process: Normal thought process present Thought content: Normal thought content present Insight: Good insight present (Psych) Medications Administered Discontinued Medications Generic Name Dose Route Start Last Admin Trade Name Freq PRN Reason Stop Dose Admin Sodium Chloride 500 mls @ 500 mls/hr 01/12/24 21:00 01/12/24 21:18 Ns IV 01/12/24 21:59 500 mls/hr .Q1H YULY Administration Meclizine HCl 25 mg 01/12/24 20:46 01/12/24 21:25 Meclizine Hcl 25 Mg Tablet PO 01/12/24 20:47 25 mg ONCE ONE Administration Medical Decision Making Medical Decision Making [facility] Narrative: Patient is a 48 year old assigned female at with a history of anemia, MDD, and DM presenting to the emergency department today with resolving mid back pain and dizziness. Patient's physical exam was unremarkable. Patient's blood work showed chronic anemia but was otherwise unremarkable. Patient's urine showed no acute process. Patient's EKG was unremarkable. Patient's chest x-ray showed no acute process. I explained my physical exam findings as well as all test results to the patient. I answered all questions asked by the patient. Patient requested to be discharged before any spine imaging could be obtained. I stressed the importance of the patient taking her medication as prescribed. I stressed the importance of the patient following up with her primary care provider. I stressed the importance of the patient returning to the emergency department immediately if her symptoms were to worsen or if she were to develop any dizziness, shortness of breath, difficulty breathing, chest pain, blurry vision, loss of vision, nausea, vomiting, abdominal pain, fever, chills, back pain, or any other complaints. Patient verbalized agreement and understanding with this treatment plan and discharge. Differential Diagnosis Differential Diagnoses: The differential diagnosis associated with the presentation includes Back pain Dizziness Fall Admission/Observation Consideration of admission/observation: Escalation of care including admission/observation considered Patient would have been admitted to the hospital had her work up had any findings where hospital admission was appropriate and her clinical presentation warranted hospital admission. Lab Data [facility] Lab Attestation statement: I reviewed the patient's lab results. My interpretation of these results are in the [facility] Rationale portion of this note. 01/12/24 21:19 01/12/24 21:19 Labs: Lab Results 01/12/24 01/12/24 01/12/24 Range/Units 21:11 21:19 21:27 WBC 5.7 (4.8-10.8) X10*3/uL RBC 3.29 L (4.20-5.50) X10*6/uL Hgb 7.9 L (12.0-16.0) g/dl Hct 26.3 L (37.0-47.0) % MCV 79.9 L (80.0-98.0) fL MCH 24.0 L (27.0-33.0) pg MCHC 30.0 L (31.0-35.0) g/dl RDW 17.2 H (11.0-16.0) % Plt Count 288 (160-400) X10*3/uL MPV 9.0 L (9.4-12.3) fL Immature Gran % (Auto) 0.7 H (0.0-0.4) % Neut % (Auto) 62.1 (45-73) % Lymph % (Auto) 20.7 (20-40) % Catron % (Auto) 13.2 H (2-11) % Eos % (Auto) 2.8 (0-4) % Baso % (Auto) 0.5 (0-2) % Lymph # (Auto) 1.2 (1.2-4.9) X10*3/uL Catron # (Auto) 0.8 (0.1-1.2) X10*3/uL Eos # (Auto) 0.2 (0.0-0.4) X10*3/uL Baso # (Auto) 0.0 (0.0-0.2) X10*3/uL Abs Immat Gran (auto) 0.04 H (0.00-0.03) X10*3/uL Absolute Neuts (auto) 3.5 (2.0-8.3) x10*3/uL Absolute Nucleated RBC 0.000 (0.0-0.012) X10*3/uL Nucleated RBC % (auto) 0.0 (0.0-0.2) /100WBC Sodium 144 (135-145) mmol/L Potassium 3.1 L (3.3-5.1) mmol/L Chloride 108 (96-108) mmol/L Carbon Dioxide 26 (22-29) mmol/L Anion Gap 13 (12-20) BUN 10 (9-16) mg/dL Creatinine 0.76 (0.5-1.4) mg/dL Estim Creat Clear Calc 110.4 Estimated GFR > 60 Random Glucose 116 H (60-115) mg/dL Calcium 8.4 (8.4-10.2) mg/dL Total Bilirubin 0.2 (0.0-1.0) mg/dL AST 25 (5-31) U/L ALT 32 H (0-31) U/L Alkaline Phosphatase 135 H (39-117) U/L Troponin I High Sens 3.6 (<3.5-17.0) ng/L Total Protein 6.6 (6.5-8.0) g/dL Albumin 3.9 (3.5-5.0) g/dL Urine Color Yellow Urine Appearance Clear Urine pH 6.0 (5.0-9.0) Ur Specific Manson 1.010 (1.005-1.025) Urine Protein Negative (Neg-Trace) mg/dL Urine Glucose (UA) Negative (Negative) mg/dL Urine Ketones Negative (Negative) mg/dL Urine Blood Negative (Negative) Urine Nitrite Negative (Negative) Ur Leukocyte Esterase Trace H (Negative) Urine RBC 0-2 (0-2) /HPF Urine WBC 0-5 (0-5) /HPF Ur Squamous Epith Cells 0-2 (0-2) /HPF Urine Bacteria None Seen (None Seen) Hyaline Casts 0-2 (0-2) /LPF Influenza Type A (PCR) NEGATIVE (Negative) Influenza Type B (PCR) NEGATIVE (Negative) RSV RNA Qual (PCR) NEGATIVE (Negative) SARS-CoV-2 RNA (RT-PCR) NEGATIVE (Negative) Independent Interpretation I performed an independent interpretation of an: EKG and Plain X-Ray Interpretation: My interpretation is in agreement with the radiologist's impression of this imaging study. - EXAMINATION: XR CHEST CLINICAL INFORMATION: Dizziness. COMPARISON: None available. TECHNIQUE: 2 views of the chest were obtained. FINDINGS: No significant abnormality is noted involving the heart, lungs, mediastinum, bony thorax or soft tissues. XR/XR chest 2V IMPRESSION: Unremarkable chest examination. Dictated By: Reed Tejada MD Signed By: Electronically signed by Reed Tejada MD 01/12/24 221 - Vent. Rate: 116 BPM Atrial Rate: 116 BPM P-R Int: 152 ms QRS Dur: 082 ms QT Int: 340 ms P-R-T Axes: 063 053 076 degrees QTc Int: 472 ms Sinus tachycardia Otherwise normal ECG When compared with ECG of 09-JAN-2024 22:27, No significant change was found DD/ 34 Radiology Impression Discussion of test interpretation with radiology: I have reviewed the radiologist's reading. Independent Historian Clinical information obtained from an independent historian. History obtained from or confirmed by: EMS (EMS provided additional history and confirmed the history provided by the patient.) Tests considered The following testing was considered but not selected: CT of the head and neck were considered however, the patient did not have any reported head strike, headache, or neck pain. Imaging of the thoracic spine was considered however, the patient declined any of this imaging and requested to be discharged. Chronic Conditions Patient?s care impacted by: Diabetes Discharge Plan Discharge Clinical Impression: Back pain Patient Disposition: Home, Self-Care Instructions: Back Pain (ED) Additional Instructions: Follow up with your primary care provider. Return to the emergency department immediately if your symptoms worsen or if you develop any dizziness, shortness of breath, difficulty breathing, chest pain, blurry vision, loss of vision, nausea, vomiting, abdominal pain, fever, chills, back pain, or any other complaints. Prescriptions: No Action fluoxetine 40 mg capsule 80 mg PO DAILY lorazepam 0.5 mg tablet 0.5 mg PO BID PRN (Reason: Anxiety) fluticasone propion-salmeterol 250-50 mcg/dose blister with device 1 ea inhalation BID lisinopril 5 mg tablet 5 mg PO DAILY prazosin 2 mg capsule 4 mg PO BEDTIME haloperidol 5 mg Tablet 5 mg PO TID@0900,1530,2100 30 Days Qty: 90 0RF lactulose 20 gram/30 mL Solution 20 g PO DAILY PRN (Reason: constipation) 30 Days Qty: 1200 0RF clozapine [Clozaril] 25 mg tablet 75 mg PO BEDTIME 21 Days Qty: 63 0RF famotidine 10 mg Tablet 10 mg PO BID@0630,1630 albuterol sulfate [Ventolin HFA] 90 mcg/actuation HFA aerosol inhaler 2 inh inhalation Q4H PRN (Reason: Shortness Of Breath Or Wheezing) montelukast 10 mg tablet 10 mg PO BEDTIME metformin 500 mg tablet 500 mg PO BID atorvastatin 10 mg tablet 10 mg PO DAILY pantoprazole 40 mg tablet,delayed release (DR/EC) 40 mg PO DAILY@0630 benztropine 1 mg tablet 1 mg PO BID buspirone [BuSpar] 10 mg Tablet 10 mg PO BID mirtazapine 15 mg Tablet 15 mg PO BEDTIME fluphenazine HCl 5 mg tablet 5 mg PO BID Referrals: [facility] Family Medicine [Provider Group] (Call to establish and follow up with a primary care provider. If you already have a primary care provider, please follow up with them.) [facility] [Provider Group] (Call to establish and follow up with a primary care provider. If you already have a primary care provider, please follow up with them.) [facility] [Provider Group] (Call to establish and follow up with a primary care provider. If you already have a primary care provider, please follow up with them.) Interventions: ED Discharge Assessment Last Done: 01/12/24 22:24 Discharge Date/Time: 01/12/24 22:25 Print Language: Persian
[2024-01-12] MEDS: 0.9 % Sodium Chloride 500 ML IV (21:18)
[2024-01-12 21:23] LABS: MANUAL DIFF FLAG NO
[2024-01-12 21:24] LABS: Basophils Percent Auto 0.5 % (0-2); Eosinophils Absolute Auto 0.2 X10*3/uL (0.0-0.4); Eosinophils Percent Auto 2.8 % (0-4); Hematocrit 26.3 % (37.0-47.0); Hemoglobin 7.9 g/dl (12.0-16.0); Imm Gran Abs Auto 0.04 X10*3/uL (0.00-0.03); Imm Gran Pct Auto 0.7 % (0.0-0.4); Lymphocytes Absolute Auto 1.2 X10*3/uL (1.2-4.9); Lymphocytes Percent Auto 20.7 % (20-40); Mean Corpuscular Volume 79.9 fL (80.0-98.0); Monocytes Absolute Auto 0.8 X10*3/uL (0.1-1.2); Monocytes Percent Auto 13.2 % (2-11); Neutrophils Absolute Auto 3.5 x10*3/uL (2.0-8.3); Neutrophils Percent Auto 62.1 % (45-73); Platelet Count 288 X10*3/uL (160-400); Red Blood Count 3.29 X10*6/uL (4.20-5.50); Red Cell Distribution Width 17.2 % (11.0-16.0); White Blood Count 5.7 X10*3/uL (4.8-10.8)
[2024-01-12] MEDS: Meclizine HCl 25 MG TABLET PO (21:25)
[2024-01-12 21:33] LABS: Appearance Urine Clear; Color Urine Yellow; Glucose Urine UA Negative (Negative); Leukocyte Esterase Urine Trace (Negative); Nitrite Urine Negative (Negative); UMIC TRIGGER UACC YES; Urine Blood Negative (Negative); Urine Ketones Negative (Negative); Urine Protein Negative (Neg-Trace)
[2024-01-12 21:38] LABS: Alanine Aminotransferase 32 U/L (0-31); Albumin Level 3.9 g/dL (3.5-5.0); Alkaline Phosphatase 135 U/L (39-117); Anion Gap 13 (12-20); Aspartate Amino Transferase 25 U/L (5-31); Bilirubin Total 0.2 mg/dL (0.0-1.0); Blood Urea Nitrogen 10 mg/dL (9-16); Calcium 8.4 mg/dL (8.4-10.2); Carbon Dioxide 26 mmol/L (22-29); Chloride 108 mmol/L (96-108); Creatinine Clr Calc Pharmacy 110.4; Estimated Glomerular Filt Rate > 60; Glucose Random 116 mg/dL (60-115); Potassium 3.1 mmol/L (3.3-5.1); Sodium 144 mmol/L (135-145); Total Protein 6.6 g/dL (6.5-8.0)
[2024-01-12 21:38] LABS: Bacteria Urine None Seen (None Seen); Hyaline Casts Urine 0-2 /LPF (0-2); RBC Urine 0-2 /HPF (0-2); Squamous Epithelial Cell Urine 0-2 /HPF (0-2); WBC Urine 0-5 /HPF (0-5)
[2024-01-12 21:45] LABS: Troponin-I High Sensitivity 3.6 ng/L (<3.5-17.0)
[2024-01-12 21:55] LABS: Influenza A PCR NEGATIVE (Negative); Influenza B PCR NEGATIVE (Negative); Resp Syncy Virus RNA Qual PCR NEGATIVE (Negative); SARS COV2 PCR INHOUSE NEGATIVE (Negative)
[2024-01-12 22:24] VITALS: BP 158/88; PULSE 105; RESP 18; TEMP 36.6; O2SAT 95
== END 2024-01-12 22:25 | disposition home or self-care (01) ==
PROVIDERS: Physician Assistant Medical; Emergency Provider Emergency Medicine Emergency Medical Services
DX: M54.9 Dorsalgia, unspecified (principal); R42 Dizziness and giddiness; E11.9 Type 2 diabetes mellitus without complications; Z03.818 Encounter for observation for suspected exposure to other biological agents ruled out
CPT/HCPCS: 0241U; 71046; 80053; 81001; 84484; 85025; 93005; 99284

== ENCOUNTER → 2024-01-12 20:35 | Outpatient (BNV) | payer MEDICARE, MEDICAID, SELFPAY | PROVIDERS: Emergency Provider Emergency Medicine Emergency Medical Services; Visit Provider Internal Medicine Cardiovascular Disease | DX: R42 Dizziness and giddiness (principal) | CPT/HCPCS: 93010 ==

== ENCOUNTER 2024-01-15 11:09 | Outpatient (REF) | payer MEDICARE, MEDICAID, SELFPAY ==
[2024-01-15 11:39] LABS: MANUAL DIFF FLAG NO
[2024-01-15 12:14] LABS: Basophils Percent Auto 0.3 % (0-2); Eosinophils Absolute Auto 0.3 X10*3/uL (0.0-0.4); Eosinophils Percent Auto 4.5 % (0-4); Hematocrit 26.9 % (37.0-47.0); Hemoglobin 7.9 g/dl (12.0-16.0); Imm Gran Abs Auto 0.03 X10*3/uL (0.00-0.03); Imm Gran Pct Auto 0.5 % (0.0-0.4); Lymphocytes Absolute Auto 1.1 X10*3/uL (1.2-4.9); Lymphocytes Percent Auto 18.2 % (20-40); Mean Corpuscular HGB Conc 29.4 g/dl (31.0-35.0); Mean Corpuscular Hemoglobin 23.8 pg (27.0-33.0); Mean Platelet Volume 9.6 fL (9.4-12.3); Monocytes Absolute Auto 0.5 X10*3/uL (0.1-1.2); Monocytes Percent Auto 7.7 % (2-11); Neutrophils Absolute Auto 4.1 x10*3/uL (2.0-8.3); Neutrophils Percent Auto 68.8 % (45-73); Platelet Count 309 X10*3/uL (160-400); Red Blood Count 3.32 X10*6/uL (4.20-5.50); Red Cell Distribution Width 17.1 % (11.0-16.0)
== END 2024-01-15 11:10 | disposition home or self-care (01) ==
LOC: HO.LABR 11:09
PROVIDERS: PCP Nurse Practitioner Family; Visit Provider Psychiatry & Neurology Psychiatry
DX: Z13.89 Encounter for screening for other disorder (principal)
CPT/HCPCS: 36415; 85025

== ENCOUNTER 2024-01-15 17:11 | Emergency (ER) | payer MEDICARE, MEDICAID, SELFPAY ==
--- NOTE | 2024-01-15 | ECG_ITS ---
Test Reason : CHEST PAIN Blood Pressure : / mmHG Vent. Rate : 096 BPM Atrial Rate : 096 BPM P-R Int : 154 ms QRS Dur : 080 ms QT Int : 350 ms P-R-T Axes : 031 031 050 degrees QTc Int : 442 ms Normal sinus rhythm Normal ECG When compared with ECG of 12-JAN-2024 20:35, No significant change was found Referred By: Generic ED Physician Electronically Signed By:DONALD HOOKER MD
--- NOTE | ~2024-01-15 | XR_ITS ---
EXAMINATION: XR CHEST CLINICAL INFORMATION: Chest pain. COMPARISON: Chest radiograph 01/12/2024. TECHNIQUE: Frontal view of the chest was obtained. FINDINGS: Normal appearance of the cardiomediastinal silhouette. No focal airspace opacities, pleural effusions or pneumothorax. No evidence of pulmonary edema. No acute issues findings. Visualized upper abdomen is within normal limits. XR/XR chest 1V IMPRESSION: No acute cardiopulmonary findings.
[2024-01-15 17:21] VITALS: BP 129/84; BP 150/100; PULSE 106; PULSE 116; RESP 18; TEMP 36.9; O2SAT 98; BMI 42.2
[2024-01-15 17:25] VITALS: BP 129/84; PULSE 104; RESP 18; TEMP 36.9; O2SAT 96
--- NOTE | 2024-01-15 17:40 | PC.NURSE ---
Pt coming from home via EMS, reports chest pain and SOB. EMS administered 324 mg of aspirin PO for the chest pain. pt reports substernal chest pain radiating to left side that started 30 mins prior to EMS arrival. Pt also reports complaints of dizziness and SOB that increases with exertion. Pt does have hx of COPD with no home O2. Pt reports hallucinations at baseline, daily for many years, denies any SI/HI or new psychiatric complaints. Pt is alert and oriented, breathing even and unlabored, skin WNL. Pt reports 8/10 chest pain, stabbing at this time. Pt is placed on bedside residential monitor, NSR. RA SPO2 96%. Pt able to speak in full sentences with no difficulty while at rest.
--- NOTE | 2024-01-15 18:21 | ED.CHESTPAIN ---
HPI - Chest Pain General Chief Complaint: Chest Pain Stated Complaint: cp, hallucinations, emphysema, COPD Time Seen by Provider: 01/15/24 17:27 History of Present Illness HPI narrative: Patient is a 48-year-old female with a history of diabetes, hypertension, hyperlipidemia, smoker presents today with having chest pain. Patient's chest pain is mid chest. Associated some mild shortness of breath has been fairly constant for the last 6 hours. Patient denies any diaphoresis. She is from [facility]. No coughing or congestion. No diaphoresis. Related Data Home Medications Medication Instructions Recorded Confirmed fluoxetine 40 mg capsule 80 mg PO DAILY 08/25/23 01/09/24 lorazepam 0.5 mg tablet 0.5 mg PO BID PRN Anxiety 08/31/23 01/09/24 albuterol sulfate 90 mcg/actuation 2 inh inhalation Q4H PRN Shortness 09/17/23 01/09/24 aerosol inhaler (Ventolin HFA) Of Breath Or Wheezing famotidine 10 mg tablet 10 mg PO BID@0630,1630 09/17/23 01/09/24 montelukast 10 mg tablet 10 mg PO BEDTIME 09/17/23 01/09/24 atorvastatin 10 mg tablet 10 mg PO DAILY 10/04/23 01/09/24 benztropine 1 mg tablet 1 mg PO BID 10/04/23 01/09/24 metformin 500 mg tablet 500 mg PO BID 10/04/23 01/09/24 pantoprazole 40 mg tablet,delayed 40 mg PO DAILY@0630 10/04/23 01/09/24 release fluticasone 250 mcg-salmeterol 50 1 ea inhalation BID 11/18/23 01/09/24 mcg/dose blistr powdr for inhalation lisinopril 5 mg tablet 5 mg PO DAILY blood pressure 11/18/23 01/09/24 prazosin 2 mg capsule 4 mg PO BEDTIME 11/18/23 01/09/24 buspirone 10 mg tablet 10 mg PO BID 01/09/24 01/09/24 fluphenazine HCl 5 mg tablet 5 mg PO BID 01/09/24 01/09/24 mirtazapine 15 mg tablet 15 mg PO BEDTIME 01/09/24 01/09/24 Previous Rx's Medication Instructions Recorded haloperidol 5 mg tablet 5 mg PO TID@0900,1530,2100 30 days 11/29/23 #90 tabs lactulose 20 gram/30 mL oral 20 g (30 mL) PO DAILY PRN 11/29/23 solution constipation 30 days #1,200 mL clozapine 25 mg tablet (Clozaril) 75 mg (3 x 25 mg) PO BEDTIME 3 12/23/23 weeks #63 tabs Allergies Allergy/AdvReac Type Severity Reaction Status Date / Time azithromycin [AZITHROMYCIN] Allergy Severe Rash Verified 11/09/23 18:02 Fish Containing Products Allergy Severe Anaphylaxis Verified 11/09/23 18:02 codeine [Codeine] Allergy Intermediate Rash Verified 11/09/23 18:02 Penicillins Allergy Intermediate Rash Verified 11/09/23 18:02 prednisone [Prednisone] Allergy Intermediate Rash Verified 11/09/23 18:02 Sulfa (Sulfonamide Allergy Intermediate Rash Verified 11/09/23 18:02 Antibiotics) [Sulfa (Sulfonamides)] ziprasidone [From Geodon] Allergy Intermediate dysuria, Verified 11/09/23 18:02 rash Review of Systems Review of Systems: No fever no chills no diaphoresis PMFSH Past Medical History Attestation statement: The following information was validated with the patient. Medical History Suicidal ideation MDD (major depressive disorder), recurrent episode, severe Chest pain Acute anxiety COVID-19 Full body hives Major depression Dizziness Suicide attempt UTI (urinary tract infection) Acetaminophen overdose COVID History of attempted suicide History of non-suicidal self-harm Hypomagnesemia Suicide attempt Suicide attempt by acetaminophen overdose Acetaminophen overdose Depression Diabetes type 2, controlled Borderline personality disorder PTSD (post-traumatic stress disorder) Overdose GERD (gastroesophageal reflux disease) Mood disorder Hyperlipidemia Bronchitis Social History Social History Household Members: None Household Members Other:: [facility] Housing: Other Housing Other:: [facility] Do you presently have visiting nurse or other home services: No Unable to assess alcohol history related to: Unknown Alcohol intake: former Comment: sitter in room Patient Tobacco Use Status: Former Tobacco user Quit Date: NA Tobacco use type: Cigarette Cigarette Packs Per Day: 1 Cigarettes Per Day: 20.0 Years Smoked: 22 Smoked in Last 30 Days: Yes e-Cigarette/Vaping Use: Never Used Second Hand Smoke Exposure: No Use of substances other than those prescribed or required for medical reasons: No Substance Use Type: Marijuana Advance Directives: No Advance Directives Information Provided: No service: No Current occupational status: unemployed and disabled Sexual orientation: Straight/Heterosexual Physical Exam Vital Signs: Vital Signs: Last Vital Signs Temp 98.4 F 01/15/24 21:38 Pulse 98 01/15/24 21:38 Resp 16 01/15/24 21:38 BP 171/94 H 01/15/24 21:38 Pulse Ox 98 01/15/24 21:38 O2 Del Method Room Air 01/15/24 21:38 BMI result Body Mass Index 42.2 Appearance: Alert. Oriented X3. No acute distress. Eyes: Pupils equal, round and reactive to light. ENT: Pharynx normal. Neck: Normal inspection. Neck supple. No lymph nodes noted. No crepitus CVS: Normal heart rate and rhythm. Pulses normal. Normal S1 and S2 Respiratory: No respiratory distress. Breath sounds normal. No Wheezing. No rales Abdomen: Soft and nontender. No rigidity. No distention. good BS x4 Skin: Skin warm and dry. Normal skin color. Normal skin turgor. Extremities: No lower extremity edema. Neurovascular intact to all extremities. No Lacerations. No Rash Neuro: Oriented X 3. No motor deficit. No sensory deficit. Moving all extermities. No slurred speech Medications Administered Discontinued Medications Generic Name Dose Route Start Last Admin Trade Name Freq PRN Reason Stop Dose Admin Acetaminophen 650 mg 01/15/24 20:52 01/15/24 21:03 Acetaminophen 325 Mg Tablet PO 01/15/24 20:53 Not Given ONCE ONE Medical Decision Making Medical Decision Making MDM Narrative: Patient presented today with having atypical chest pain. Two sets of enzymes are both negative despite having the chest pain for greater than 6 hours. The symptom has since resolved. No acute distress. There has no risk for PE. My interpretation patient's chest x-ray showed no pneumonia no pneumothorax. My interpretation of her EKG showed a sinus rhythm heart rate is 90 OH QRS QTC within normal limits is no acute ST segment elevation. Will discharge patient home close follow-up on an outpatient basis patient's pain atypical for ACS she does have multitude of cardiac risk factors with negative enzymes and a normal EKG heart score is a 3. Will have patient follow-up Differential Diagnosis Differential Diagnoses: The differential diagnosis associated with the presentation includes ACS, pneumonia, pneumothorax, PE Admission/Observation Consideration of admission/observation: Escalation of care including admission/observation considered Lab Data MDM Lab Attestation statement: I reviewed the patient's lab results. 01/15/24 19:36 01/15/24 20:19 Labs: Lab Results 01/15/24 01/15/24 01/15/24 Range/Units 19:36 20:19 21:14 WBC 6.0 (4.8-10.8) X10*3/uL RBC 3.31 L (4.20-5.50) X10*6/uL Hgb 7.9 L (12.0-16.0) g/dl Hct 27.0 L (37.0-47.0) % MCV 81.6 (80.0-98.0) fL MCH 23.9 L (27.0-33.0) pg MCHC 29.3 L (31.0-35.0) g/dl RDW 17.1 H (11.0-16.0) % Plt Count 296 (160-400) X10*3/uL MPV 9.5 (9.4-12.3) fL Immature Gran % (Auto) 0.8 H (0.0-0.4) % Neut % (Auto) 61.0 (45-73) % Lymph % (Auto) 24.7 (20-40) % [place] % (Auto) 8.2 (2-11) % Eos % (Auto) 4.8 H (0-4) % Baso % (Auto) 0.5 (0-2) % Lymph # (Auto) 1.5 (1.2-4.9) X10*3/uL [place] # (Auto) 0.5 (0.1-1.2) X10*3/uL Eos # (Auto) 0.3 (0.0-0.4) X10*3/uL Baso # (Auto) 0.0 (0.0-0.2) X10*3/uL Abs Immat Gran (auto) 0.05 H (0.00-0.03) X10*3/uL Absolute Neuts (auto) 3.7 (2.0-8.3) x10*3/uL Absolute Nucleated RBC 0.020 H (0.0-0.012) X10*3/uL Nucleated RBC % (auto) 0.3 H (0.0-0.2) /100WBC Sodium 141 (135-145) mmol/L Potassium 4.0 D (3.3-5.1) mmol/L Chloride 110 H (96-108) mmol/L Carbon Dioxide 24 (22-29) mmol/L Anion Gap 11 L (12-20) BUN 9 (9-16) mg/dL Creatinine 0.70 (0.5-1.4) mg/dL Estim Creat Clear Calc 122.7 Estimated GFR > 60 Random Glucose 130 H (60-115) mg/dL Calcium 8.8 (8.4-10.2) mg/dL Total Bilirubin 0.2 (0.0-1.0) mg/dL Direct Bilirubin < 0.2 (0.0-0.5) mg/dL AST 19 (5-31) U/L ALT 23 (0-31) U/L Alkaline Phosphatase 134 H (39-117) U/L Troponin I High Sens < 2.7 < 2.7 (<3.5-17.0) ng/L Total Protein 6.7 (6.5-8.0) g/dL Albumin 3.9 (3.5-5.0) g/dL Lipase 19 (8-78) U/L Beta HCG, Quant < 2 mIU/mL Influenza Type A (PCR) NEGATIVE (Negative) Influenza Type B (PCR) NEGATIVE (Negative) RSV RNA Qual (PCR) NEGATIVE (Negative) SARS-CoV-2 RNA (RT-PCR) NEGATIVE (Negative) Independent Interpretation I performed an independent interpretation of an: EKG (Sinus heart rate is 90 OH QRS QTC within normal limits is no acute ST segment elevation noted) and Plain X-Ray (Negative for pneumonia no pneumothorax) Radiology Impression Discussion of test interpretation with radiology: I have reviewed the radiologist's reading. External Record Review External record reviewed: Inpatient record Discharge Plan Discharge Clinical Impression: Chest pain Patient Disposition: Home, Self-Care Instructions: Chest Pain (ED) Prescriptions: No Action fluoxetine 40 mg capsule 80 mg PO DAILY lorazepam 0.5 mg tablet 0.5 mg PO BID PRN (Reason: Anxiety) fluticasone propion-salmeterol 250-50 mcg/dose blister with device 1 ea inhalation BID lisinopril 5 mg tablet 5 mg PO DAILY prazosin 2 mg capsule 4 mg PO BEDTIME haloperidol 5 mg Tablet 5 mg PO TID@0900,1530,2100 30 Days Qty: 90 0RF lactulose 20 gram/30 mL Solution 20 g PO DAILY PRN (Reason: constipation) 30 Days Qty: 1200 0RF clozapine [Clozaril] 25 mg tablet 75 mg PO BEDTIME 21 Days Qty: 63 0RF famotidine 10 mg Tablet 10 mg PO BID@0630,1630 albuterol sulfate [Ventolin HFA] 90 mcg/actuation HFA aerosol inhaler 2 inh inhalation Q4H PRN (Reason: Shortness Of Breath Or Wheezing) montelukast 10 mg tablet 10 mg PO BEDTIME metformin 500 mg tablet 500 mg PO BID atorvastatin 10 mg tablet 10 mg PO DAILY pantoprazole 40 mg tablet,delayed release (DR/EC) 40 mg PO DAILY@0630 benztropine 1 mg tablet 1 mg PO BID buspirone [BuSpar] 10 mg Tablet 10 mg PO BID mirtazapine 15 mg Tablet 15 mg PO BEDTIME fluphenazine HCl 5 mg tablet 5 mg PO BID Referrals: Cristofer Fagan MD [Physician] - 01/17/24
[2024-01-15 18:25] VITALS: BP 134/79; PULSE 98; RESP 25; TEMP 37; O2SAT 97
[2024-01-15 19:40] LABS: MANUAL DIFF FLAG NO
[2024-01-15 19:50] LABS: Basophils Percent Auto 0.5 % (0-2); Eosinophils Absolute Auto 0.3 X10*3/uL (0.0-0.4); Eosinophils Percent Auto 4.8 % (0-4); Hemoglobin 7.9 g/dl (12.0-16.0); Imm Gran Abs Auto 0.05 X10*3/uL (0.00-0.03); Imm Gran Pct Auto 0.8 % (0.0-0.4); Lymphocytes Absolute Auto 1.5 X10*3/uL (1.2-4.9); Lymphocytes Percent Auto 24.7 % (20-40); Mean Corpuscular HGB Conc 29.3 g/dl (31.0-35.0); Mean Corpuscular Hemoglobin 23.9 pg (27.0-33.0); Mean Corpuscular Volume 81.6 fL (80.0-98.0); Mean Platelet Volume 9.5 fL (9.4-12.3); Monocytes Absolute Auto 0.5 X10*3/uL (0.1-1.2); Monocytes Percent Auto 8.2 % (2-11); NRBC Pct Auto 0.3 /100WBC (0.0-0.2); Neutrophils Absolute Auto 3.7 x10*3/uL (2.0-8.3); Platelet Count 296 X10*3/uL (160-400); Red Blood Count 3.31 X10*6/uL (4.20-5.50); Red Cell Distribution Width 17.1 % (11.0-16.0)
--- NOTE | 2024-01-15 19:50 | PC.NURSE ---
Assumed care of pt. Pt sitting on edge of bed, c/o ongoing chest pain 02/21. MD aware, no new orders at this time. Attempting to obtain labwork, pt difficult access. No other acute distress at this.
[2024-01-15 20:46] LABS: Alanine Aminotransferase 23 U/L (0-31); Albumin Level 3.9 g/dL (3.5-5.0); Alkaline Phosphatase 134 U/L (39-117); Anion Gap 11 (12-20); Aspartate Amino Transferase 19 U/L (5-31); Bilirubin Direct < 0.2 mg/dL (0.0-0.5); Bilirubin Total 0.2 mg/dL (0.0-1.0); Blood Urea Nitrogen 9 mg/dL (9-16); Calcium 8.8 mg/dL (8.4-10.2); Carbon Dioxide 24 mmol/L (22-29); Chloride 110 mmol/L (96-108); Creatinine Clr Calc Pharmacy 122.7; Estimated Glomerular Filt Rate > 60; Glucose Random 130 mg/dL (60-115); Lipase 19 U/L (8-78); Sodium 141 mmol/L (135-145); Total Protein 6.7 g/dL (6.5-8.0)
[2024-01-15 20:48] LABS: HCG Quantitative < 2 mIU/mL; Troponin-I High Sensitivity < 2.7 ng/L (<3.5-17.0)
[2024-01-15 21:00] LABS: Influenza A PCR NEGATIVE (Negative); Influenza B PCR NEGATIVE (Negative); Resp Syncy Virus RNA Qual PCR NEGATIVE (Negative); SARS COV2 PCR INHOUSE NEGATIVE (Negative)
[2024-01-15 21:38] VITALS: BP 171/94; PULSE 98; RESP 16; TEMP 36.9; O2SAT 98
[2024-01-15 21:45] LABS: Troponin-I High Sensitivity < 2.7 ng/L (<3.5-17.0)
[2024-01-15 22:08] VITALS: BP 171/94; PULSE 98; RESP 16; TEMP 36.9; O2SAT 98
== END 2024-01-15 22:11 | disposition home or self-care (01) ==
PROVIDERS: Emergency Provider Emergency Medicine Emergency Medical Services
DX: R07.9 Chest pain, unspecified (principal); E11.9 Type 2 diabetes mellitus without complications; I10 Essential (primary) hypertension; Z03.818 Encounter for observation for suspected exposure to other biological agents ruled out; Z88.0 Allergy status to penicillin; Z88.2 Allergy status to sulfonamides; Z88.5 Allergy status to narcotic agent
CPT/HCPCS: 0241U; 36415; 71045; 80048; 80076; 83690; 84484; 84702; 85025; 93005; 99283; 99285

== ENCOUNTER → 2024-01-15 18:19 | Outpatient (BNV) | payer MEDICARE, MEDICAID, SELFPAY | PROVIDERS: Emergency Provider Emergency Medicine Emergency Medical Services; Visit Provider Internal Medicine Cardiovascular Disease | DX: R07.9 Chest pain, unspecified (principal) | CPT/HCPCS: 93010 ==

== ENCOUNTER 2024-01-17 22:18 | Emergency (ER) | payer MEDICARE, MEDICAID, SELFPAY ==
[2024-01-17 22:28] VITALS: BP 140/85; BP 160/100; PULSE 109; PULSE 112; RESP 18; TEMP 36.9; O2SAT 94; O2SAT 95; BMI 40.1
--- NOTE | 2024-01-17 22:35 | ECG_ITS ---
Test Reason : CHEST PAIN Blood Pressure : / mmHG Vent. Rate : 110 BPM Atrial Rate : 110 BPM P-R Int : 154 ms QRS Dur : 080 ms QT Int : 332 ms P-R-T Axes : 039 023 055 degrees QTc Int : 449 ms Sinus tachycardia Otherwise normal ECG When compared with ECG of 15-JAN-2024 18:19, No significant change was found Referred By: Generic ED Physician Electronically Signed By:DONALD HOOKER MD
[2024-01-17 22:52] LABS: MANUAL DIFF FLAG NO
[2024-01-17 22:54] LABS: Basophils Percent Auto 0.4 % (0-2); Eosinophils Absolute Auto 0.3 X10*3/uL (0.0-0.4); Eosinophils Percent Auto 4.2 % (0-4); Hematocrit 27.9 % (37.0-47.0); Hemoglobin 8.1 g/dl (12.0-16.0); Imm Gran Abs Auto 0.05 X10*3/uL (0.00-0.03); Imm Gran Pct Auto 0.6 % (0.0-0.4); Lymphocytes Absolute Auto 1.5 X10*3/uL (1.2-4.9); Lymphocytes Percent Auto 18.3 % (20-40); Mean Corpuscular Hemoglobin 23.4 pg (27.0-33.0); Mean Corpuscular Volume 80.6 fL (80.0-98.0); Mean Platelet Volume 9.7 fL (9.4-12.3); Monocytes Absolute Auto 0.6 X10*3/uL (0.1-1.2); Monocytes Percent Auto 7.9 % (2-11); Neutrophils Absolute Auto 5.5 x10*3/uL (2.0-8.3); Neutrophils Percent Auto 68.6 % (45-73); Platelet Count 320 X10*3/uL (160-400); Red Blood Count 3.46 X10*6/uL (4.20-5.50); Red Cell Distribution Width 16.8 % (11.0-16.0)
[2024-01-17 23:07] LABS: Alanine Aminotransferase 17 U/L (0-31); Alkaline Phosphatase 155 U/L (39-117); Anion Gap 13 (12-20); Aspartate Amino Transferase 14 U/L (5-31); Bilirubin Direct 0.2 mg/dL (0.0-0.5); Bilirubin Total 0.2 mg/dL (0.0-1.0); Blood Urea Nitrogen 11 mg/dL (9-16); Calcium 8.9 mg/dL (8.4-10.2); Carbon Dioxide 23 mmol/L (22-29); Chloride 109 mmol/L (96-108); Estimated Glomerular Filt Rate > 60; Glucose Random 119 mg/dL (60-115); Lipase 19 U/L (8-78); Potassium 3.5 mmol/L (3.3-5.1); Sodium 141 mmol/L (135-145); Total Protein 6.9 g/dL (6.5-8.0)
[2024-01-17 23:15] LABS: Troponin-I High Sensitivity < 2.7 ng/L (<3.5-17.0)
[2024-01-18] VITALS: BP 120/79; PULSE 97; RESP 20; TEMP 36.8; O2SAT 95
--- NOTE | 2024-01-18 00:35 | ED_ITS ---
HPI - Abdominal Pain General Chief Complaint: Abdominal Pain Stated Complaint: abd and chest pain Time Seen by Provider: 01/18/24 00:35 Source: patient Mode of arrival: ambulatory Limitations: no limitations History of Present Illness HPI narrative: Patient with significant psychiatric history been here multiple times last time was here on 01/14 today comes here as since she started on Clozaril about a month ago been feeling dizzy and today she fell again because she felt dizzy light headed no vertiginous feeling no vomiting no significant abdominal pain Related Data Home Medications ?Medication ?Instructions ?Recorded ?Confirmed fluoxetine 40 mg capsule 80 mg PO DAILY 08/25/23 01/09/24 lorazepam 0.5 mg tablet 0.5 mg PO BID PRN Anxiety 08/31/23 01/09/24 albuterol sulfate 90 mcg/actuation 2 inh inhalation Q4H PRN Shortness 09/17/23 01/09/24 aerosol inhaler (Ventolin HFA) Of Breath Or Wheezing famotidine 10 mg tablet 10 mg PO BID@0630,1630 09/17/23 01/09/24 montelukast 10 mg tablet 10 mg PO BEDTIME 09/17/23 01/09/24 atorvastatin 10 mg tablet 10 mg PO DAILY 10/04/23 01/09/24 benztropine 1 mg tablet 1 mg PO BID 10/04/23 01/09/24 metformin 500 mg tablet 500 mg PO BID 10/04/23 01/09/24 pantoprazole 40 mg tablet,delayed 40 mg PO DAILY@0630 10/04/23 01/09/24 release fluticasone 250 mcg-salmeterol 50 1 ea inhalation BID 11/18/23 01/09/24 mcg/dose blistr powdr for inhalation lisinopril 5 mg tablet 5 mg PO DAILY blood pressure 11/18/23 01/09/24 prazosin 2 mg capsule 4 mg PO BEDTIME 11/18/23 01/09/24 buspirone 10 mg tablet 10 mg PO BID 01/09/24 01/09/24 fluphenazine HCl 5 mg tablet 5 mg PO BID 01/09/24 01/09/24 mirtazapine 15 mg tablet 15 mg PO BEDTIME 01/09/24 01/09/24 Previous Rx's ?Medication ?Instructions ?Recorded haloperidol 5 mg tablet 5 mg PO TID@0900,1530,2100 30 days 11/29/23 #90 tabs lactulose 20 gram/30 mL oral 20 g (30 mL) PO DAILY PRN 11/29/23 solution constipation 30 days #1,200 mL clozapine 25 mg tablet (Clozaril) 75 mg (3 x 25 mg) PO BEDTIME 3 12/23/23 weeks #63 tabs Allergies Allergy/AdvReac Type Severity Reaction Status Date / Time azithromycin [AZITHROMYCIN] Allergy Severe Rash Verified 01/17/24 22:31 Fish Containing Products Allergy Severe Anaphylaxis Verified 01/17/24 22:31 codeine [Codeine] Allergy Intermediate Rash Verified 01/17/24 22:31 Penicillins Allergy Intermediate Rash Verified 01/17/24 22:31 prednisone [Prednisone] Allergy Intermediate Rash Verified 01/17/24 22:31 Sulfa (Sulfonamide Allergy Intermediate Rash Verified 01/17/24 22:31 Antibiotics) [Sulfa (Sulfonamides)] ziprasidone [From Geodon] Allergy Intermediate dysuria, Verified 01/17/24 22:31 rash Review of Systems Review of Systems Yes all other systems are reviewed and are negative PMFSH Past Medical History Medical History Suicidal ideation MDD (major depressive disorder), recurrent episode, severe Chest pain Acute anxiety COVID-19 Full body hives Major depression Dizziness Suicide attempt UTI (urinary tract infection) Acetaminophen overdose COVID History of attempted suicide History of non-suicidal self-harm Hypomagnesemia Suicide attempt Suicide attempt by acetaminophen overdose Acetaminophen overdose Depression Diabetes type 2, controlled Borderline personality disorder PTSD (post-traumatic stress disorder) Overdose GERD (gastroesophageal reflux disease) Mood disorder Hyperlipidemia Bronchitis Social History Social History Household Members: None Household Members Other:: [facility] Housing: Other Housing Other:: [facility] Do you presently have visiting nurse or other home services: No Unable to assess alcohol history related to: Unknown Alcohol intake: former Comment: sitter in room Patient Tobacco Use Status: Former Tobacco user Quit Date: NA Tobacco use type: Cigarette Cigarette Packs Per Day: 1 Cigarettes Per Day: 20.0 Years Smoked: 22 Smoked in Last 30 Days: Yes e-Cigarette/Vaping Use: Never Used Second Hand Smoke Exposure: No Use of substances other than those prescribed or required for medical reasons: No Substance Use Type: Marijuana Advance Directives: No Advance Directives Information Provided: Yes Patient : No service: No Current occupational status: unemployed and disabled Sexual orientation: Straight/Heterosexual Physical Exam ED Vital Signs: Vital Signs - 24 hr 01/17/24 22:28 01/18/24 00:00 01/18/24 01:26 Temperature 98.5 F 98.2 F Pulse Rate 112 H 97 105 H Respiratory Rate 18 20 Blood Pressure 140/85 H 120/79 129/74 Pulse Oximetry 95 95 Oxygen Delivery Method Room Air Room Air 01/18/24 01:27 01/18/24 01:27 01/18/24 02:00 Temperature 98.5 F Pulse Rate 106 H 113 H 75 Respiratory Rate 16 Blood Pressure 126/76 122/60 123/78 Pulse Oximetry 96 Oxygen Delivery Method Room Air 01/18/24 04:00 01/18/24 06:33 Temperature 98.8 F 99.1 F Pulse Rate 97 103 H Respiratory Rate 16 14 Blood Pressure 132/79 127/75 Pulse Oximetry 95 97 Oxygen Delivery Method Room Air Room Air BMI result Body Mass Index 40.1 Appearance: Alert. Oriented X3. No acute distress. Eyes: PERRLA, No Nystagmus ENT: Pharynx normal. Oral Mucosa moist Neck: Normal inspection. Neck supple. CVS: Normal heart rate and rhythm. Pulses normal. Respiratory: No respiratory distress. Equal air entry bilateral, no wheezing/rales/rhonchi Abdomen: Soft and nontender. Bowel sounds are present, no mass palpable, no CVA tenderness Skin: Skin warm and dry. Normal skin color. Normal skin turgor. Extremities: No lower extremity edema. No calf tenderness Neuro: Oriented X 3. No motor deficit. No sensory deficit.No cerebellar signs , cranial nerves II-XII intact Medical Decision Making Medical Decision Making MDM Narrative: Patient with nonspecific dizziness orthostatics normal feels that Clozaril causing the side effect patient advised to follow-up with the psychiatrist patient had normal orthostatics Lab Data [facility] Lab Attestation statement: I reviewed the patient's lab results. 01/17/24 22:48 01/17/24 22:48 Labs: Lab Results 01/17/24 Range/Units 22:48 WBC 8.0 (4.8-10.8) X10*3/uL RBC 3.46 L (4.20-5.50) X10*6/uL Hgb 8.1 L (12.0-16.0) g/dl Hct 27.9 L (37.0-47.0) % MCV 80.6 (80.0-98.0) fL MCH 23.4 L (27.0-33.0) pg MCHC 29.0 L (31.0-35.0) g/dl RDW 16.8 H (11.0-16.0) % Plt Count 320 (160-400) X10*3/uL MPV 9.7 (9.4-12.3) fL Immature Gran % (Auto) 0.6 H (0.0-0.4) % Neut % (Auto) 68.6 (45-73) % Lymph % (Auto) 18.3 L (20-40) % [place] % (Auto) 7.9 (2-11) % Eos % (Auto) 4.2 H (0-4) % Baso % (Auto) 0.4 (0-2) % Lymph # (Auto) 1.5 (1.2-4.9) X10*3/uL [place] # (Auto) 0.6 (0.1-1.2) X10*3/uL Eos # (Auto) 0.3 (0.0-0.4) X10*3/uL Baso # (Auto) 0.0 (0.0-0.2) X10*3/uL Abs Immat Gran (auto) 0.05 H (0.00-0.03) X10*3/uL Absolute Neuts (auto) 5.5 (2.0-8.3) x10*3/uL Absolute Nucleated RBC 0.000 (0.0-0.012) X10*3/uL Nucleated RBC % (auto) 0.0 (0.0-0.2) /100WBC Sodium 141 (135-145) mmol/L Potassium 3.5 (3.3-5.1) mmol/L Chloride 109 H (96-108) mmol/L Carbon Dioxide 23 (22-29) mmol/L Anion Gap 13 (12-20) BUN 11 (9-16) mg/dL Creatinine 0.80 (0.5-1.4) mg/dL Estim Creat Clear Calc 108.0 Estimated GFR > 60 Random Glucose 119 H (60-115) mg/dL Calcium 8.9 (8.4-10.2) mg/dL Total Bilirubin 0.2 (0.0-1.0) mg/dL Direct Bilirubin 0.2 (0.0-0.5) mg/dL AST 14 (5-31) U/L ALT 17 (0-31) U/L Alkaline Phosphatase 155 H (39-117) U/L Troponin I High Sens < 2.7 (<3.5-17.0) ng/L Total Protein 6.9 (6.5-8.0) g/dL Albumin 4.0 (3.5-5.0) g/dL Lipase 19 (8-78) U/L Discharge Plan Discharge Clinical Impression: Dizziness Patient Disposition: Home, Self-Care Instructions: Dizziness (ED) Additional Instructions: Drink plenty of fluids Follow-up with your psychiatrist about the medications Prescriptions: No Action fluoxetine 40 mg capsule 80 mg PO DAILY lorazepam 0.5 mg tablet 0.5 mg PO BID PRN (Reason: Anxiety) fluticasone propion-salmeterol 250-50 mcg/dose blister with device 1 ea inhalation BID lisinopril 5 mg tablet 5 mg PO DAILY prazosin 2 mg capsule 4 mg PO BEDTIME haloperidol 5 mg Tablet 5 mg PO TID@0900,1530,2100 30 Days Qty: 90 0RF lactulose 20 gram/30 mL Solution 20 g PO DAILY PRN (Reason: constipation) 30 Days Qty: 1200 0RF clozapine [Clozaril] 25 mg tablet 75 mg PO BEDTIME 21 Days Qty: 63 0RF famotidine 10 mg Tablet 10 mg PO BID@0630,1630 albuterol sulfate [Ventolin HFA] 90 mcg/actuation HFA aerosol inhaler 2 inh inhalation Q4H PRN (Reason: Shortness Of Breath Or Wheezing) montelukast 10 mg tablet 10 mg PO BEDTIME metformin 500 mg tablet 500 mg PO BID atorvastatin 10 mg tablet 10 mg PO DAILY pantoprazole 40 mg tablet,delayed release (DR/EC) 40 mg PO DAILY@0630 benztropine 1 mg tablet 1 mg PO BID buspirone [BuSpar] 10 mg Tablet 10 mg PO BID mirtazapine 15 mg Tablet 15 mg PO BEDTIME fluphenazine HCl 5 mg tablet 5 mg PO BID Interventions: ED Discharge Assessment Last Done: 01/18/24 06:33 Discharge Date/Time: 01/18/24 06:35 Print Language: [place]
[2024-01-18 01:26] VITALS: BP 129/74; PULSE 105
[2024-01-18 01:27] VITALS: BP 122/60; BP 126/76; PULSE 106; PULSE 113
[2024-01-18 02:00] VITALS: BP 123/78; PULSE 75; RESP 16; TEMP 36.9; O2SAT 96
[2024-01-18 04:00] VITALS: BP 132/79; PULSE 97; RESP 16; TEMP 37.1; O2SAT 95
[2024-01-18 06:33] VITALS: BP 127/75; PULSE 103; RESP 14; TEMP 37.3; O2SAT 97
== END 2024-01-18 06:35 | disposition home or self-care (01) ==
PROVIDERS: Emergency Provider Internal Medicine
DX: R42 Dizziness and giddiness (principal); E11.9 Type 2 diabetes mellitus without complications; F32.A Depression, unspecified; Z79.899 Other long term (current) drug therapy; Z88.0 Allergy status to penicillin; Z88.1 Allergy status to other antibiotic agents; Z88.2 Allergy status to sulfonamides; Z88.5 Allergy status to narcotic agent
CPT/HCPCS: 36415; 80053; 82248; 83690; 84484; 85025; 93005; 99283; 99284

== ENCOUNTER → 2024-01-17 22:35 | Outpatient (BNV) | payer MEDICARE, MEDICAID, SELFPAY | PROVIDERS: Emergency Provider Internal Medicine; Visit Provider Internal Medicine Cardiovascular Disease | DX: R07.9 Chest pain, unspecified (principal) | CPT/HCPCS: 93010 ==

== ENCOUNTER 2024-01-22 12:38 | Outpatient (REF) | payer MEDICARE, MEDICAID, SELFPAY ==
[2024-01-22 12:50] LABS: MANUAL DIFF FLAG NO
[2024-01-22 12:58] LABS: Basophils Percent Auto 0.5 % (0-2); Eosinophils Absolute Auto 0.4 X10*3/uL (0.0-0.4); Eosinophils Percent Auto 4.8 % (0-4); Hematocrit 30.2 % (37.0-47.0); Hemoglobin 8.9 g/dl (12.0-16.0); Imm Gran Abs Auto 0.04 X10*3/uL (0.00-0.03); Imm Gran Pct Auto 0.5 % (0.0-0.4); Lymphocytes Absolute Auto 1.6 X10*3/uL (1.2-4.9); Lymphocytes Percent Auto 19.9 % (20-40); Mean Corpuscular HGB Conc 29.5 g/dl (31.0-35.0); Mean Corpuscular Hemoglobin 23.4 pg (27.0-33.0); Mean Corpuscular Volume 79.5 fL (80.0-98.0); Mean Platelet Volume 9.7 fL (9.4-12.3); Monocytes Absolute Auto 0.9 X10*3/uL (0.1-1.2); Monocytes Percent Auto 11.7 % (2-11); Neutrophils Percent Auto 62.6 % (45-73); Platelet Count 339 X10*3/uL (160-400); Red Cell Distribution Width 16.4 % (11.0-16.0); White Blood Count 7.9 X10*3/uL (4.8-10.8)
== END 2024-01-22 12:39 | disposition home or self-care (01) ==
LOC: HO.LABR 12:38
PROVIDERS: Visit Provider Psychiatry & Neurology Psychiatry
DX: Z79.899 Other long term (current) drug therapy (principal)
CPT/HCPCS: 36415; 85025

== ENCOUNTER 2024-01-29 09:53 | Outpatient (REF) | payer MEDICARE, MEDICAID, SELFPAY ==
[2024-01-29 10:17] LABS: MANUAL DIFF FLAG NO
[2024-01-29 10:36] LABS: Basophils Percent Auto 0.4 % (0-2); Eosinophils Absolute Auto 0.2 X10*3/uL (0.0-0.4); Hematocrit 29.8 % (37.0-47.0); Hemoglobin 8.7 g/dl (12.0-16.0); Imm Gran Abs Auto 0.01 X10*3/uL (0.00-0.03); Imm Gran Pct Auto 0.2 % (0.0-0.4); Lymphocytes Absolute Auto 0.9 X10*3/uL (1.2-4.9); Lymphocytes Percent Auto 19.9 % (20-40); Mean Corpuscular HGB Conc 29.2 g/dl (31.0-35.0); Mean Corpuscular Volume 78.8 fL (80.0-98.0); Mean Platelet Volume 9.9 fL (9.4-12.3); Monocytes Absolute Auto 0.5 X10*3/uL (0.1-1.2); Monocytes Percent Auto 11.2 % (2-11); Neutrophils Percent Auto 64.3 % (45-73); Platelet Count 272 X10*3/uL (160-400); Red Blood Count 3.78 X10*6/uL (4.20-5.50); Red Cell Distribution Width 16.8 % (11.0-16.0); White Blood Count 4.7 X10*3/uL (4.8-10.8)
== END 2024-01-29 09:54 | disposition home or self-care (01) ==
LOC: HO.LABR 09:53
PROVIDERS: Visit Provider Psychiatry & Neurology Psychiatry
DX: Z79.899 Other long term (current) drug therapy (principal)
CPT/HCPCS: 36415; 85025

== ENCOUNTER 2024-02-05 11:19 | Outpatient (REF) | payer MEDICARE, MEDICAID, SELFPAY ==
[2024-02-05 11:44] LABS: MANUAL DIFF FLAG NO
[2024-02-05 12:02] LABS: Basophils Percent Auto 0.3 % (0-2); Eosinophils Absolute Auto 0.2 X10*3/uL (0.0-0.4); Eosinophils Percent Auto 3.2 % (0-4); Hematocrit 27.7 % (37.0-47.0); Hemoglobin 8.1 g/dl (12.0-16.0); Imm Gran Abs Auto 0.03 X10*3/uL (0.00-0.03); Imm Gran Pct Auto 0.5 % (0.0-0.4); Lymphocytes Absolute Auto 1.1 X10*3/uL (1.2-4.9); Lymphocytes Percent Auto 19.2 % (20-40); Mean Corpuscular HGB Conc 29.2 g/dl (31.0-35.0); Mean Corpuscular Hemoglobin 22.4 pg (27.0-33.0); Mean Corpuscular Volume 76.7 fL (80.0-98.0); Mean Platelet Volume 10.2 fL (9.4-12.3); Monocytes Absolute Auto 0.5 X10*3/uL (0.1-1.2); Monocytes Percent Auto 8.6 % (2-11); Neutrophils Absolute Auto 4.1 x10*3/uL (2.0-8.3); Neutrophils Percent Auto 68.2 % (45-73); Platelet Count 290 X10*3/uL (160-400); Red Blood Count 3.61 X10*6/uL (4.20-5.50); Red Cell Distribution Width 16.5 % (11.0-16.0); White Blood Count 5.9 X10*3/uL (4.8-10.8)
== END 2024-02-05 11:20 | disposition home or self-care (01) ==
LOC: HO.LABR 11:19
PROVIDERS: Visit Provider Psychiatry & Neurology Psychiatry
DX: Z79.899 Other long term (current) drug therapy (principal)
CPT/HCPCS: 36415; 85025

== ENCOUNTER 2024-02-11 21:41 | Emergency (ER) | payer MEDICARE, MEDICAID, SELFPAY ==
--- NOTE | 2024-02-11 | ECG_ITS ---
Test Reason : sob Blood Pressure : / mmHG Vent. Rate : 118 BPM Atrial Rate : 118 BPM P-R Int : 150 ms QRS Dur : 078 ms QT Int : 328 ms P-R-T Axes : 043 019 061 degrees QTc Int : 459 ms Sinus tachycardia Otherwise normal ECG When compared with ECG of 17-JAN-2024 22:38, No significant change was found Referred By: Generic ED Physician Electronically Signed By:MAURI COLE
--- NOTE | ~2024-02-11 | XR_ITS ---
EXAMINATION: XR CHEST CLINICAL INFORMATION: Shortness of breath. COMPARISON: Chest radiograph 01/15/2024. TECHNIQUE: 2 views of the chest were obtained. FINDINGS: Stable prominence of the cardiomediastinal silhouette. Increased interstitial markings and trace right pleural effusion. No dense consolidation. No pneumothorax. No acute osseous findings. XR/XR chest 2V IMPRESSION: Increased interstitial markings and trace right pleural effusion are nonspecific and could be associated with asthma, bronchitis, reactive airways disease or atypical infections.
[2024-02-11 21:48] VITALS: BP 155/88; BP 187/98; PULSE 121; RESP 20; TEMP 36.8; O2SAT 96; BMI 38.8
[2024-02-11 22:08] LABS: MANUAL DIFF FLAG NO
[2024-02-11 22:09] LABS: Basophils Percent Auto 0.4 % (0-2); Eosinophils Absolute Auto 0.3 X10*3/uL (0.0-0.4); Hematocrit 27.5 % (37.0-47.0); Imm Gran Abs Auto 0.03 X10*3/uL (0.00-0.03); Imm Gran Pct Auto 0.4 % (0.0-0.4); Lymphocytes Absolute Auto 1.6 X10*3/uL (1.2-4.9); Lymphocytes Percent Auto 21.8 % (20-40); Mean Corpuscular HGB Conc 29.1 g/dl (31.0-35.0); Mean Corpuscular Hemoglobin 22.6 pg (27.0-33.0); Mean Corpuscular Volume 77.7 fL (80.0-98.0); Mean Platelet Volume 9.6 fL (9.4-12.3); Monocytes Absolute Auto 0.6 X10*3/uL (0.1-1.2); Monocytes Percent Auto 8.5 % (2-11); Neutrophils Absolute Auto 4.7 x10*3/uL (2.0-8.3); Neutrophils Percent Auto 64.9 % (45-73); Platelet Count 313 X10*3/uL (160-400); Red Blood Count 3.54 X10*6/uL (4.20-5.50); Red Cell Distribution Width 16.7 % (11.0-16.0); White Blood Count 7.2 X10*3/uL (4.8-10.8)
[2024-02-11 22:25] LABS: Alanine Aminotransferase 16 U/L (0-31); Albumin Level 3.8 g/dL (3.5-5.0); Alkaline Phosphatase 125 U/L (39-117); Anion Gap 13 (12-20); Aspartate Amino Transferase 21 U/L (5-31); Bilirubin Total 0.2 mg/dL (0.0-1.0); Blood Urea Nitrogen 9 mg/dL (9-16); Calcium 8.7 mg/dL (8.4-10.2); Carbon Dioxide 22 mmol/L (22-29); Chloride 110 mmol/L (96-108); Creatinine Clr Calc Pharmacy 107.8; Estimated Glomerular Filt Rate > 60; Glucose Random 133 mg/dL (60-115); Magnesium 1.7 mg/dL (1.6-2.6); Potassium 3.4 mmol/L (3.3-5.1); Sodium 142 mmol/L (135-145); Total Protein 6.8 g/dL (6.5-8.0)
[2024-02-11 22:34] LABS: Troponin-I High Sensitivity < 2.7 ng/L (<3.5-17.0)
[2024-02-11 22:44] LABS: Influenza A PCR NEGATIVE (Negative); Influenza B PCR NEGATIVE (Negative); Resp Syncy Virus RNA Qual PCR NEGATIVE (Negative); SARS COV2 PCR INHOUSE NEGATIVE (Negative)
[2024-02-11 22:59] VITALS: BP 150/99; PULSE 114; RESP 19; O2SAT 97
--- NOTE | 2024-02-11 23:08 | PC.NURSE ---
[facility]
[2024-02-12 00:18] VITALS: BP 161/99; PULSE 106; RESP 20; TEMP 36.7; O2SAT 98
--- NOTE | 2024-02-12 00:18 | ED_ITS ---
HPI - SOB/Dyspnea General Chief Complaint: Dyspnea Stated Complaint: DIFF BREATHING X 2 HRS Time Seen by Provider: 02/12/24 00:06 Source: patient and old records reviewed Mode of arrival: EMS Limitations: no limitations History of Present Illness HPI Narrative: 48 yo female with PMH of anemia, emphysema, asthma, COPD, long standing cigarette smoker, mental health disease here with c/o 1 day of feeling dyspnea and wheezing and her INH is not working. 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 MD elicited complaint: shortness of breath and cough Pertinent past history: asthma Onset (ago): day(s) (1) Context: smoke/fume exposure Timing: intermittent Severity: moderate Exacerbating factors: exertion and coughing Relieving factors: rest and bronchodilators Known history of: asthma Associated symptoms: chest pain, cough and wheezing Treatment prior to arrival: bronchodilator Related Data Home Medications ?Medication ?Instructions ?Recorded ?Confirmed fluoxetine 40 mg capsule 80 mg PO DAILY 08/25/23 01/09/24 lorazepam 0.5 mg tablet 0.5 mg PO BID PRN Anxiety 08/31/23 01/09/24 albuterol sulfate 90 mcg/actuation 2 inh inhalation Q4H PRN Shortness 09/17/23 01/09/24 aerosol inhaler (Ventolin HFA) Of Breath Or Wheezing famotidine 10 mg tablet 10 mg PO BID@0630,1630 09/17/23 01/09/24 montelukast 10 mg tablet 10 mg PO BEDTIME 09/17/23 01/09/24 atorvastatin 10 mg tablet 10 mg PO DAILY 10/04/23 01/09/24 benztropine 1 mg tablet 1 mg PO BID 10/04/23 01/09/24 metformin 500 mg tablet 500 mg PO BID 10/04/23 01/09/24 pantoprazole 40 mg tablet,delayed 40 mg PO DAILY@0630 10/04/23 01/09/24 release fluticasone 250 mcg-salmeterol 50 1 ea inhalation BID 11/18/23 01/09/24 mcg/dose blistr powdr for inhalation lisinopril 5 mg tablet 5 mg PO DAILY blood pressure 11/18/23 01/09/24 prazosin 2 mg capsule 4 mg PO BEDTIME 11/18/23 01/09/24 buspirone 10 mg tablet 10 mg PO BID 01/09/24 01/09/24 fluphenazine HCl 5 mg tablet 5 mg PO BID 01/09/24 01/09/24 mirtazapine 15 mg tablet 15 mg PO BEDTIME 01/09/24 01/09/24 Previous Rx's ?Medication ?Instructions ?Recorded haloperidol 5 mg tablet 5 mg PO TID@0900,1530,2100 30 days 11/29/23 #90 tabs lactulose 20 gram/30 mL oral 20 g (30 mL) PO DAILY PRN 11/29/23 solution constipation 30 days #1,200 mL clozapine 25 mg tablet (Clozaril) 75 mg (3 x 25 mg) PO BEDTIME 3 12/23/23 weeks #63 tabs doxycycline hyclate 100 mg capsule 100 mg PO BID 7 days #14 caps 02/12/24 Allergies Allergy/AdvReac Type Severity Reaction Status Date / Time azithromycin [AZITHROMYCIN] Allergy Severe Rash Verified 02/11/24 21:55 Fish Containing Products Allergy Severe Anaphylaxis Verified 02/11/24 21:55 codeine [Codeine] Allergy Intermediate Rash Verified 02/11/24 21:55 Penicillins Allergy Intermediate Rash Verified 02/11/24 21:55 prednisone [Prednisone] Allergy Intermediate Rash Verified 02/11/24 21:55 Sulfa (Sulfonamide Allergy Intermediate Rash Verified 02/11/24 21:55 Antibiotics) [Sulfa (Sulfonamides)] ziprasidone [From Geodon] Allergy Intermediate dysuria, Verified 02/11/24 21:55 rash Review of Systems 2 Review of Systems: Constitutional : No Fever, No Chills ENT/Mouth : No Hoarseness, No sore throat, No Rhinorrhea Eyes: No Redness, No Discharge, No Vision Changes Cardiovascular : pos Chest Pain, positive SOB, positive Dyspnea on Exertion, No Edema Respiratory : positive Cough, No Sputum, positive Wheezing, Gastrointestinal : No Nausea, No Vomiting, No Diarrhea, No abdominal Pain Genitourinary : No Dysuria, No Hematuria Musculoskeletal : No joint pain, No Myalgias Skin : No rash Neuro : No Weakness, No Numbness, No Headache Psych : No anxiety, depression Heme/Lymph: No Bruising, No Bleeding Endocrine : No Polyuria, No Polydipsia All other systems reviewed and are negative PMFSH Past Medical History Attestation statement: The following information was validated with the patient. Source: old records reviewed Medical History Suicidal ideation MDD (major depressive disorder), recurrent episode, severe Chest pain Acute anxiety COVID-19 Full body hives Major depression Dizziness Suicide attempt UTI (urinary tract infection) Acetaminophen overdose COVID History of attempted suicide History of non-suicidal self-harm Hypomagnesemia Suicide attempt Suicide attempt by acetaminophen overdose Acetaminophen overdose Depression Diabetes type 2, controlled Borderline personality disorder PTSD (post-traumatic stress disorder) Overdose GERD (gastroesophageal reflux disease) Mood disorder Hyperlipidemia Bronchitis Social History Social History Household Members: None Household Members Other:: [facility] Housing: Other Housing Other:: Longterm Do you presently have visiting nurse or other home services: No Unable to assess alcohol history related to: Unknown Alcohol intake: former Comment: sitter in room Patient Tobacco Use Status: Former Tobacco user Quit Date: NA Tobacco use type: Cigarette Cigarette Packs Per Day: 1 Cigarettes Per Day: 20.0 Years Smoked: 22 e-Cigarette/Vaping Use: Never Used Second Hand Smoke Exposure: No Substance Use Type: Marijuana Advance Directives: No Advance Directives Information Provided: Yes Do you have a plan to hurt others: No Plan service: No Current occupational status: unemployed and disabled Sexual orientation: Straight/Heterosexual Physical Exam 2 Vital Signs: Vital Signs: Last Vital Signs Temp 98.1 F 02/12/24 00:18 Pulse 111 H 02/12/24 02:22 Resp 18 02/12/24 02:22 BP 124/84 02/12/24 02:22 Pulse Ox 98 02/12/24 02:22 O2 Del Method Room Air 02/12/24 02:22 BMI result Body Mass Index 38.8 Appearance: Alert. Oriented X3. No acute distress. Eyes: Pupils equal, round and reactive to light. ENT: Pharynx normal. Neck: Normal inspection. Neck supple. CVS: Normal heart rate and rhythm. Pulses normal. Respiratory: No respiratory distress. Breath sounds slightly diminished Abdomen: Soft and nontender. Skin: Skin warm and dry. Normal skin color. Normal skin turgor. Extremities: No lower extremity edema. No calf ttp Neuro: Oriented X 3. No motor deficit. No sensory deficit. Medications Administered Discontinued Medications Generic Name Dose Route Start Last Admin Trade Name Freq PRN Reason Stop Dose Admin Albuterol Sulfate 7.5 mg/ 10 mg 02/12/24 00:33 02/12/24 00:43 Albuterol Sulfate 2.5 mg INHALE 02/12/24 00:34 10 mg ONCE ONE Administration Medical Decision Making Medical Decision Making [facility] Narrative: 48 yo female with PMH of anemia, emphysema, asthma, COPD, long standing cigarette smoker, mental health disease here with c/o dyspnea, cough, wheezing x 1 day with chest pain as well at this time will give neb, obtain CXR and obtain troponin x 2, ddimer - possible asthma, VTE, bronchitis. Anemia is at baseline. Differential Diagnosis Differential Diagnoses: The differential diagnosis associated with the presentation includes dyspnea, bronchitis, VTE Admission/Observation Consideration of admission/observation: Escalation of care including admission/observation considered trop flat x 2, ddimer negative, will treat as bronchitis and DC home Lab Data [facility] Lab Attestation statement: I reviewed the patient's lab results. 02/11/24 22:03 02/11/24 22:03 Labs: Lab Results 02/11/24 02/12/24 02/12/24 Range/Units 22:03 01:01 01:11 WBC 7.2 (4.8-10.8) X10*3/uL RBC 3.54 L (4.20-5.50) X10*6/uL Hgb 8.0 L (12.0-16.0) g/dl Hct 27.5 L (37.0-47.0) % MCV 77.7 L (80.0-98.0) fL MCH 22.6 L (27.0-33.0) pg MCHC 29.1 L (31.0-35.0) g/dl RDW 16.7 H (11.0-16.0) % Plt Count 313 (160-400) X10*3/uL MPV 9.6 (9.4-12.3) fL Immature Gran % (Auto) 0.4 (0.0-0.4) % Neut % (Auto) 64.9 (45-73) % Lymph % (Auto) 21.8 (20-40) % [place] % (Auto) 8.5 (2-11) % Eos % (Auto) 4.0 (0-4) % Baso % (Auto) 0.4 (0-2) % Lymph # (Auto) 1.6 (1.2-4.9) X10*3/uL [place] # (Auto) 0.6 (0.1-1.2) X10*3/uL Eos # (Auto) 0.3 (0.0-0.4) X10*3/uL Baso # (Auto) 0.0 (0.0-0.2) X10*3/uL Abs Immat Gran (auto) 0.03 (0.00-0.03) X10*3/uL Absolute Neuts (auto) 4.7 (2.0-8.3) x10*3/uL Absolute Nucleated RBC 0.000 (0.0-0.012) X10*3/uL Nucleated RBC % (auto) 0.0 (0.0-0.2) /100WBC D-Dimer High Sensitivty < 150 NG/ML Sodium 142 (135-145) mmol/L Potassium 3.4 (3.3-5.1) mmol/L Chloride 110 H (96-108) mmol/L Carbon Dioxide 22 (22-29) mmol/L Anion Gap 13 (12-20) BUN 9 (9-16) mg/dL Creatinine 0.76 (0.5-1.4) mg/dL Estim Creat Clear Calc 107.8 Estimated GFR > 60 Random Glucose 133 H (60-115) mg/dL Calcium 8.7 (8.4-10.2) mg/dL Magnesium 1.7 (1.6-2.6) mg/dL Total Bilirubin 0.2 (0.0-1.0) mg/dL AST 21 (5-31) U/L ALT 16 (0-31) U/L Alkaline Phosphatase 125 H (39-117) U/L Troponin I High Sens < 2.7 < 2.7 (<3.5-17.0) ng/L B-Natriuretic Peptide < 10 (<100) pg/mL Total Protein 6.8 (6.5-8.0) g/dL Albumin 3.8 (3.5-5.0) g/dL Influenza Type A (PCR) NEGATIVE (Negative) Influenza Type B (PCR) NEGATIVE (Negative) RSV RNA Qual (PCR) NEGATIVE (Negative) SARS-CoV-2 RNA (RT-PCR) NEGATIVE (Negative) Independent Interpretation I performed an independent interpretation of an: EKG and Plain X-Ray (trace effusion) Interpretation: Rate: 118 Rhythm: sinus tachycardia [place]: normal Normal P waves. Normal [place]. Normal QRS complex. ST T wave : normal no [place] qTC: normal prior studies: no acute ischemia The study has been interpreted contemporaneously by me. . Radiology Impression Discussion of test interpretation with radiology: I have reviewed the radiologist's reading. External Record Review External record reviewed: Inpatient record Prescription Management I considered prescription management with: Antibiotic Discharge Plan Discharge Clinical Impression: Acute bronchitis Qualifiers: Bronchitis organism: unspecified organism Qualified Code(s): J20.9 - Acute bronchitis, unspecified Patient Disposition: Home, Self-Care Instructions: Acute Bronchitis (ED) Additional Instructions: your xray showed acute bronchitis. your labs were otherwise at baseline. you had normal heart tests. repeat chest xray with your doctor in 1 week there was mild fluid trace on right lung test for blood clot was negative Prescriptions: New doxycycline hyclate 100 mg capsule 100 mg PO BID 7 Days Qty: 14 0RF No Action fluoxetine 40 mg capsule 80 mg PO DAILY lorazepam 0.5 mg tablet 0.5 mg PO BID PRN (Reason: Anxiety) fluticasone propion-salmeterol 250-50 mcg/dose blister with device 1 ea inhalation BID lisinopril 5 mg tablet 5 mg PO DAILY prazosin 2 mg capsule 4 mg PO BEDTIME haloperidol 5 mg Tablet 5 mg PO TID@0900,1530,2100 30 Days Qty: 90 0RF lactulose 20 gram/30 mL Solution 20 g PO DAILY PRN (Reason: constipation) 30 Days Qty: 1200 0RF clozapine [Clozaril] 25 mg tablet 75 mg PO BEDTIME 21 Days Qty: 63 0RF famotidine 10 mg Tablet 10 mg PO BID@0630,1630 albuterol sulfate [Ventolin HFA] 90 mcg/actuation HFA aerosol inhaler 2 inh inhalation Q4H PRN (Reason: Shortness Of Breath Or Wheezing) montelukast 10 mg tablet 10 mg PO BEDTIME metformin 500 mg tablet 500 mg PO BID atorvastatin 10 mg tablet 10 mg PO DAILY pantoprazole 40 mg tablet,delayed release (DR/EC) 40 mg PO DAILY@0630 benztropine 1 mg tablet 1 mg PO BID buspirone [BuSpar] 10 mg Tablet 10 mg PO BID mirtazapine 15 mg Tablet 15 mg PO BEDTIME fluphenazine HCl 5 mg tablet 5 mg PO BID Print Language: [place] Citizen
[2024-02-12 00:39] VITALS: PULSE 114; RESP 20; O2SAT 99
[2024-02-12] MEDS: Albuterol Sulfate 7.5 MG, Albuterol Sulfate (0.083%) 2.5 MG 10 MG INHALE (00:43)
[2024-02-12 01:25] LABS: D Dimer High Sensitivity < 150 NG/ML
[2024-02-12 01:33] LABS: Troponin-I High Sensitivity < 2.7 ng/L (<3.5-17.0)
[2024-02-12 02:22] VITALS: BP 124/84; PULSE 111; RESP 18; O2SAT 98
[2024-02-12 02:40] LABS: B Type Natriuretic Peptide < 10 pg/mL (<100)
--- NOTE | 2024-02-12 03:13 | PC.NURSE ---
pt ambulated to bathroom with steady gait, denies sob and chest pain.
[2024-02-12 03:14] VITALS: BP 124/84; PULSE 111; RESP 18; TEMP 37.2; O2SAT 98
== END 2024-02-12 03:15 | disposition home or self-care (01) ==
PROVIDERS: Emergency Provider Emergency Medicine
DX: R06.02 Shortness of breath (principal); R00.0 Tachycardia, unspecified; F17.210 Nicotine dependence, cigarettes, uncomplicated; Z79.899 Other long term (current) drug therapy; Z11.52 Encounter for screening for COVID-19; Z20.822 Contact with and (suspected) exposure to COVID-19
CPT/HCPCS: 0241U; 36415; 71046; 80053; 83735; 83880; 84484; 85025; 85379; 93005; 94640; 99285

== ENCOUNTER → 2024-02-11 21:58 | Outpatient (BNV) | payer MEDICARE, MEDICAID, SELFPAY | PROVIDERS: Emergency Provider Emergency Medicine; Visit Provider Internal Medicine | DX: R00.0 Tachycardia, unspecified (principal); R06.02 Shortness of breath | CPT/HCPCS: 93010 ==

== ENCOUNTER 2024-02-12 10:50 | Outpatient (REF) | payer MEDICARE, MEDICAID, SELFPAY ==
[2024-02-12 11:13] LABS: MANUAL DIFF FLAG NO
[2024-02-12 12:12] LABS: Basophils Percent Auto 0.5 % (0-2); Eosinophils Absolute Auto 0.3 X10*3/uL (0.0-0.4); Eosinophils Percent Auto 4.4 % (0-4); Hematocrit 27.2 % (37.0-47.0); Hemoglobin 7.9 g/dl (12.0-16.0); Imm Gran Abs Auto 0.05 X10*3/uL (0.00-0.03); Imm Gran Pct Auto 0.8 % (0.0-0.4); Lymphocytes Absolute Auto 1.1 X10*3/uL (1.2-4.9); Lymphocytes Percent Auto 17.6 % (20-40); Mean Corpuscular Hemoglobin 22.5 pg (27.0-33.0); Mean Corpuscular Volume 77.5 fL (80.0-98.0); Mean Platelet Volume 9.9 fL (9.4-12.3); Monocytes Absolute Auto 0.5 X10*3/uL (0.1-1.2); Monocytes Percent Auto 8.4 % (2-11); Neutrophils Absolute Auto 4.1 x10*3/uL (2.0-8.3); Neutrophils Percent Auto 68.3 % (45-73); Platelet Count 320 X10*3/uL (160-400); Red Blood Count 3.51 X10*6/uL (4.20-5.50); Red Cell Distribution Width 16.9 % (11.0-16.0)
== END 2024-02-12 10:51 | disposition home or self-care (01) ==
LOC: HO.LAB 10:50
PROVIDERS: PCP Nurse Practitioner Family; Visit Provider Psychiatry & Neurology Psychiatry
DX: Z79.899 Other long term (current) drug therapy (principal)
CPT/HCPCS: 36415; 85025

== ENCOUNTER 2024-02-19 12:04 | Outpatient (REF) | payer MEDICARE, MEDICAID, SELFPAY ==
[2024-02-19 12:27] LABS: MANUAL DIFF FLAG NO
[2024-02-19 12:53] LABS: Basophils Percent Auto 0.6 % (0-2); Eosinophils Absolute Auto 0.3 X10*3/uL (0.0-0.4); Eosinophils Percent Auto 4.6 % (0-4); Hematocrit 28.7 % (37.0-47.0); Hemoglobin 8.4 g/dl (12.0-16.0); Imm Gran Abs Auto 0.04 X10*3/uL (0.00-0.03); Imm Gran Pct Auto 0.6 % (0.0-0.4); Lymphocytes Absolute Auto 1.3 X10*3/uL (1.2-4.9); Lymphocytes Percent Auto 20.3 % (20-40); Mean Corpuscular HGB Conc 29.3 g/dl (31.0-35.0); Mean Corpuscular Hemoglobin 22.6 pg (27.0-33.0); Mean Corpuscular Volume 77.2 fL (80.0-98.0); Mean Platelet Volume 9.6 fL (9.4-12.3); Monocytes Absolute Auto 0.5 X10*3/uL (0.1-1.2); Monocytes Percent Auto 8.3 % (2-11); Neutrophils Absolute Auto 4.3 x10*3/uL (2.0-8.3); Neutrophils Percent Auto 65.6 % (45-73); Platelet Count 295 X10*3/uL (160-400); Red Blood Count 3.72 X10*6/uL (4.20-5.50); Red Cell Distribution Width 17.4 % (11.0-16.0); White Blood Count 6.5 X10*3/uL (4.8-10.8)
== END 2024-02-19 12:05 | disposition home or self-care (01) ==
LOC: HO.LABR 12:04
PROVIDERS: PCP Nurse Practitioner Family; Visit Provider Psychiatry & Neurology Psychiatry
DX: Z79.899 Other long term (current) drug therapy (principal)
CPT/HCPCS: 36415; 85025

== ENCOUNTER 2024-02-25 17:47 | Emergency (ER) | payer MEDICARE, MEDICAID, SELFPAY ==
--- NOTE | ~2024-02-25 | XR_ITS ---
EXAMINATION: XR CHEST CLINICAL INFORMATION: Chest pain. COMPARISON: Chest radiograph dated 02/11/2024. TECHNIQUE: Frontal view of the chest was obtained. FINDINGS: Heart size is normal. There is peribronchial thickening, similar to the prior study. There is no consolidation. No pleural effusion or pneumothorax. No acute osseous abnormality. XR/XR chest 1V IMPRESSION: There is nonspecific peribronchial thickening, similar to the prior study. Differential considerations include asthma, bronchitis, or atypical infection. No consolidation.
--- NOTE | 2024-02-25 17:51 | ECG_ITS ---
Test Reason : CHEST PAIN Blood Pressure : / mmHG Vent. Rate : 111 BPM Atrial Rate : 111 BPM P-R Int : 154 ms QRS Dur : 080 ms QT Int : 350 ms P-R-T Axes : 048 024 062 degrees QTc Int : 476 ms Sinus tachycardia Otherwise normal ECG When compared with ECG of 11-FEB-2024 21:58, No significant change was found Referred By: Generic ED Physician Electronically Signed By:DONALD HOOKER MD
[2024-02-25 17:52] VITALS: BP 143/84; PULSE 110; O2SAT 98
[2024-02-25 17:56] VITALS: BP 149/97; PULSE 110; RESP 19; TEMP 37.5; O2SAT 97; BMI 41.1
[2024-02-25 18:35] LABS: MANUAL DIFF FLAG NO
[2024-02-25 18:38] LABS: Appearance Urine Clear; Color Urine Yellow; Glucose Urine UA Negative (Negative); Leukocyte Esterase Urine Negative (Negative); Nitrite Urine Negative (Negative); PH 5.5 (5.0-9.0); Specific Gravity - Urine 1.015 (1.005-1.025); Urine Blood Negative (Negative); Urine Ketones Negative (Negative); Urine Protein Negative (Neg-Trace)
[2024-02-25 18:49] LABS: Basophils Percent Auto 0.4 % (0-2); Eosinophils Absolute Auto 0.3 X10*3/uL (0.0-0.4); Hemoglobin 7.4 g/dl (12.0-16.0); Imm Gran Abs Auto 0.14 X10*3/uL (0.00-0.03); Imm Gran Pct Auto 2.1 % (0.0-0.4); Lymphocytes Absolute Auto 1.3 X10*3/uL (1.2-4.9); Lymphocytes Percent Auto 19.6 % (20-40); Mean Corpuscular HGB Conc 28.5 g/dl (31.0-35.0); Mean Corpuscular Volume 77.4 fL (80.0-98.0); Mean Platelet Volume 9.9 fL (9.4-12.3); Monocytes Absolute Auto 0.6 X10*3/uL (0.1-1.2); Monocytes Percent Auto 8.7 % (2-11); Neutrophils Absolute Auto 4.4 x10*3/uL (2.0-8.3); Neutrophils Percent Auto 65.2 % (45-73); Platelet Count 290 X10*3/uL (160-400); Red Blood Count 3.36 X10*6/uL (4.20-5.50); Red Cell Distribution Width 17.3 % (11.0-16.0); White Blood Count 6.7 X10*3/uL (4.8-10.8)
[2024-02-25 18:52] LABS: Alanine Aminotransferase 12 U/L (0-31); Albumin Level 3.9 g/dL (3.5-5.0); Alkaline Phosphatase 141 U/L (39-117); Anion Gap 14 (12-20); Aspartate Amino Transferase 15 U/L (5-31); Bilirubin Total 0.2 mg/dL (0.0-1.0); Blood Urea Nitrogen 10 mg/dL (9-16); Calcium 8.6 mg/dL (8.4-10.2); Carbon Dioxide 21 mmol/L (22-29); Chloride 111 mmol/L (96-108); Creatinine Clr Calc Pharmacy 119.2; Estimated Glomerular Filt Rate > 60; Glucose Random 166 mg/dL (60-115); Potassium 3.4 mmol/L (3.3-5.1); Sodium 143 mmol/L (135-145); Total Protein 6.7 g/dL (6.5-8.0)
[2024-02-25 19:00] LABS: Troponin-I High Sensitivity < 2.7 ng/L (<3.5-17.0)
--- NOTE | 2024-02-25 19:06 | ED.CHESTPAIN ---
HPI - Chest Pain General Chief Complaint: Chest Pain Stated Complaint: Chest pain and SOB since last night Time Seen by Provider: 02/25/24 18:12 Source: patient Mode of arrival: EMS History of Present Illness HPI narrative: 48-year-old female comes in from snf with complaints of chest pain since last night, nonradiating and not associated with any nausea/dizziness or shortness of breath, patient states that it may be her anxiety. She otherwise denies SI and states that the voices that she hears is similar to her baseline Related Data Home Medications ?Medication ?Instructions ?Recorded ?Confirmed fluoxetine 40 mg capsule 80 mg PO DAILY 08/25/23 01/09/24 lorazepam 0.5 mg tablet 0.5 mg PO BID PRN Anxiety 08/31/23 01/09/24 albuterol sulfate 90 mcg/actuation 2 inh inhalation Q4H PRN Shortness 09/17/23 01/09/24 aerosol inhaler (Ventolin HFA) Of Breath Or Wheezing famotidine 10 mg tablet 10 mg PO BID@0630,1630 09/17/23 01/09/24 montelukast 10 mg tablet 10 mg PO BEDTIME 09/17/23 01/09/24 atorvastatin 10 mg tablet 10 mg PO DAILY 10/04/23 01/09/24 benztropine 1 mg tablet 1 mg PO BID 10/04/23 01/09/24 metformin 500 mg tablet 500 mg PO BID 10/04/23 01/09/24 pantoprazole 40 mg tablet,delayed 40 mg PO DAILY@0630 10/04/23 01/09/24 release fluticasone 250 mcg-salmeterol 50 1 ea inhalation BID 11/18/23 01/09/24 mcg/dose blistr powdr for inhalation lisinopril 5 mg tablet 5 mg PO DAILY blood pressure 11/18/23 01/09/24 prazosin 2 mg capsule 4 mg PO BEDTIME 11/18/23 01/09/24 buspirone 10 mg tablet 10 mg PO BID 01/09/24 01/09/24 fluphenazine HCl 5 mg tablet 5 mg PO BID 01/09/24 01/09/24 mirtazapine 15 mg tablet 15 mg PO BEDTIME 01/09/24 01/09/24 Previous Rx's ?Medication ?Instructions ?Recorded haloperidol 5 mg tablet 5 mg PO TID@0900,1530,2100 30 days 11/29/23 #90 tabs lactulose 20 gram/30 mL oral 20 g (30 mL) PO DAILY PRN 11/29/23 solution constipation 30 days #1,200 mL clozapine 25 mg tablet (Clozaril) 75 mg (3 x 25 mg) PO BEDTIME 3 12/23/23 weeks #63 tabs doxycycline hyclate 100 mg capsule 100 mg PO BID 7 days #14 caps 02/12/24 Allergies Allergy/AdvReac Type Severity Reaction Status Date / Time azithromycin [AZITHROMYCIN] Allergy Severe Rash Verified 02/11/24 21:55 Fish Containing Products Allergy Severe Anaphylaxis Verified 02/11/24 21:55 codeine [Codeine] Allergy Intermediate Rash Verified 02/11/24 21:55 Penicillins Allergy Intermediate Rash Verified 02/11/24 21:55 prednisone [Prednisone] Allergy Intermediate Rash Verified 02/11/24 21:55 Sulfa (Sulfonamide Allergy Intermediate Rash Verified 02/11/24 21:55 Antibiotics) [Sulfa (Sulfonamides)] ziprasidone [From Geodon] Allergy Intermediate dysuria, Verified 02/11/24 21:55 rash lithium Allergy Rash Verified 02/25/24 17:58 Review of Systems Review of Systems: Pertinent positives and negatives as stated in HPI [facility] Past Medical History Source: nursing notes reviewed Medical History Suicidal ideation MDD (major depressive disorder), recurrent episode, severe Chest pain Acute anxiety COVID-19 Full body hives Major depression Dizziness Suicide attempt UTI (urinary tract infection) Acetaminophen overdose COVID History of attempted suicide History of non-suicidal self-harm Hypomagnesemia Suicide attempt Suicide attempt by acetaminophen overdose Acetaminophen overdose Depression Diabetes type 2, controlled Borderline personality disorder PTSD (post-traumatic stress disorder) Overdose GERD (gastroesophageal reflux disease) Mood disorder Hyperlipidemia Bronchitis Social History Social History Household Members: None Household Members Other:: snf Housing: Other Housing Other:: Shelter Do you presently have visiting nurse or other home services: No Unable to assess alcohol history related to: Unknown Alcohol intake: former Comment: sitter in room Patient Tobacco Use Status: Former Tobacco user Quit Date: NA Tobacco use type: Cigarette Cigarette Packs Per Day: 1 Cigarettes Per Day: 20.0 Years Smoked: 22 Smoked in Last 30 Days: Yes e-Cigarette/Vaping Use: Never Used Second Hand Smoke Exposure: No Substance Use Type: Marijuana Advance Directives: No Advance Directives Information Provided: No Do you have a plan to hurt others: No Plan service: No Current occupational status: unemployed and disabled Sexual orientation: Straight/Heterosexual Physical Exam Vital Signs: Vital Signs: Last Vital Signs Temp 99.5 F 02/25/24 17:56 Pulse 110 H 02/25/24 17:56 Resp 19 02/25/24 17:56 BP 149/97 H 02/25/24 17:56 Pulse Ox 97 02/25/24 17:56 O2 Del Method Room Air 02/25/24 17:56 BMI result Body Mass Index 41.1 VITAL SIGNS: Reviewed. GENERAL: Well developed, well nourished, in no acute distress. HEAD: Normocephalic/atraumatic EYES: PERRLA, EOMI LUNGS: Normal breath sounds. No adventitious sounds or accessory muscle use. SpO2<97> CARDIOVASCULAR: Regular rate and rhythm without noted murmurs ABDOMEN: Soft, non-tender, non-distended with bowel sounds. MUSCULOSKELETAL: No tenderness, deformities, or effusions noted on gross inspection. EXTREMITIES: No cyanosis, clubbing or edema. SKIN: Inspection of the skin reveals no rashes NEUROLOGIC: Alert and oriented x 4. Strength and sensation to light touch were grossly intact x 4. Medical Decision Making Medical Decision Making MDM Narrative: 48-year-old female with history and clinical presentation, DDX: Anxiety, doubt ACS or pneumonia. I reviewed all investigations and hematologic indices are negative for leukocytosis/thrombocytopenia and patient has a chronic stable microcytic anemia. Chemistry indices negative for [place]/electrolyte or liver enzyme derangements and high sensitivity troponin is undetectable. There are no acute changes on EKG. Urinalysis is negative for UTI or hematuria. My interpretation of the chest x-ray is there is no infiltrate or venous congestion otherwise my interpretation is in agreement radiology's impression. Patient approached me and stated that she burped and feels much better and thinks that it may have been indigestion, she is tolerating oral intake and I discussed with the care team arrangement for a lift transportation back to the facility. Differential Diagnosis Differential Diagnoses: The differential diagnosis associated with the presentation includes Please see the discussion above Admission/Observation Consideration of admission/observation: Escalation of care including admission/observation considered Please see the discussion above Lab Data MDM Lab Attestation statement: I reviewed the patient's lab results. Please see the discussion above 02/25/24 18:28 02/25/24 18:28 Labs: Lab Results 02/25/24 Range/Units 18:28 WBC 6.7 (4.8-10.8) X10*3/uL RBC 3.36 L (4.20-5.50) X10*6/uL Hgb 7.4 L (12.0-16.0) g/dl Hct 26.0 L (37.0-47.0) % MCV 77.4 L (80.0-98.0) fL MCH 22.0 L (27.0-33.0) pg MCHC 28.5 L (31.0-35.0) g/dl RDW 17.3 H (11.0-16.0) % Plt Count 290 (160-400) X10*3/uL MPV 9.9 (9.4-12.3) fL Immature Gran % (Auto) 2.1 H (0.0-0.4) % Neut % (Auto) 65.2 (45-73) % Lymph % (Auto) 19.6 L (20-40) % [place] % (Auto) 8.7 (2-11) % Eos % (Auto) 4.0 (0-4) % Baso % (Auto) 0.4 (0-2) % Lymph # (Auto) 1.3 (1.2-4.9) X10*3/uL [place] # (Auto) 0.6 (0.1-1.2) X10*3/uL Eos # (Auto) 0.3 (0.0-0.4) X10*3/uL Baso # (Auto) 0.0 (0.0-0.2) X10*3/uL Abs Immat Gran (auto) 0.14 H (0.00-0.03) X10*3/uL Absolute Neuts (auto) 4.4 (2.0-8.3) x10*3/uL Absolute Nucleated RBC 0.000 (0.0-0.012) X10*3/uL Nucleated RBC % (auto) 0.0 (0.0-0.2) /100WBC Sodium 143 (135-145) mmol/L Potassium 3.4 (3.3-5.1) mmol/L Chloride 111 H (96-108) mmol/L Carbon Dioxide 21 L (22-29) mmol/L Anion Gap 14 (12-20) BUN 10 (9-16) mg/dL Creatinine 0.71 (0.5-1.4) mg/dL Estim Creat Clear Calc 119.2 Estimated GFR > 60 Random Glucose 166 H (60-115) mg/dL Calcium 8.6 (8.4-10.2) mg/dL Total Bilirubin 0.2 (0.0-1.0) mg/dL AST 15 (5-31) U/L ALT 12 (0-31) U/L Alkaline Phosphatase 141 H (39-117) U/L Troponin I High Sens < 2.7 (<3.5-17.0) ng/L Total Protein 6.7 (6.5-8.0) g/dL Albumin 3.9 (3.5-5.0) g/dL Urine Color Yellow Urine Appearance Clear Urine pH 5.5 (5.0-9.0) Ur Specific [place] 1.015 (1.005-1.025) Urine Protein Negative (Neg-Trace) mg/dL Urine Glucose (UA) Negative (Negative) mg/dL Urine Ketones Negative (Negative) mg/dL Urine Blood Negative (Negative) Urine Nitrite Negative (Negative) Ur Leukocyte Esterase Negative (Negative) Independent Interpretation I performed an independent interpretation of an: EKG Interpretation: Sinus tachycardia, HR-111, no STEMI, UT/QRS/QTC is within normal limits. Radiology Impression Discussion of test interpretation with radiology: I have reviewed the radiologist's reading. Radiologist Impression: Please see the discussion above External Record Review External record reviewed: Outpatient record, Prior outpatient labs and Prior outpatient radiology Critical Care Time Critical Care Time Critical Care Time: Yes Total Critical Care Time: 30 Attestation: I personally attest to this time spent taking care of the patient. Discharge Plan Discharge Clinical Impression: Atypical chest pain, Acid reflux, Anxiety Patient Disposition: Xfer Other Instructions: Indigestion (ED), Anxiety (ED) Additional Instructions: Resume all medications and return to the ER for a worsening of symptoms. Prescriptions: No Action fluoxetine 40 mg capsule 80 mg PO DAILY lorazepam 0.5 mg tablet 0.5 mg PO BID PRN (Reason: Anxiety) fluticasone propion-salmeterol 250-50 mcg/dose blister with device 1 ea inhalation BID lisinopril 5 mg tablet 5 mg PO DAILY prazosin 2 mg capsule 4 mg PO BEDTIME haloperidol 5 mg Tablet 5 mg PO TID@0900,1530,2100 30 Days Qty: 90 0RF lactulose 20 gram/30 mL Solution 20 g PO DAILY PRN (Reason: constipation) 30 Days Qty: 1200 0RF clozapine [Clozaril] 25 mg tablet 75 mg PO BEDTIME 21 Days Qty: 63 0RF famotidine 10 mg Tablet 10 mg PO BID@0630,1630 albuterol sulfate [Ventolin HFA] 90 mcg/actuation HFA aerosol inhaler 2 inh inhalation Q4H PRN (Reason: Shortness Of Breath Or Wheezing) montelukast 10 mg tablet 10 mg PO BEDTIME metformin 500 mg tablet 500 mg PO BID atorvastatin 10 mg tablet 10 mg PO DAILY pantoprazole 40 mg tablet,delayed release (DR/EC) 40 mg PO DAILY@0630 benztropine 1 mg tablet 1 mg PO BID buspirone [BuSpar] 10 mg Tablet 10 mg PO BID mirtazapine 15 mg Tablet 15 mg PO BEDTIME fluphenazine HCl 5 mg tablet 5 mg PO BID doxycycline hyclate 100 mg capsule 100 mg PO BID 7 Days Qty: 14 0RF Print Language: [place] Citizen
[2024-02-25 19:34] VITALS: BP 149/97; PULSE 110; RESP 19; TEMP 37.5; O2SAT 97
== END 2024-02-25 19:23 | disposition home or self-care (01) ==
PROVIDERS: Emergency Provider Student in an Organized Health Care Education/Training Program
DX: R07.89 Other chest pain (principal); R06.02 Shortness of breath; K21.9 Gastro-esophageal reflux disease without esophagitis; F41.9 Anxiety disorder, unspecified; Z79.899 Other long term (current) drug therapy; Z87.891 Personal history of nicotine dependence
CPT/HCPCS: 36415; 71045; 80053; 81003; 84484; 85025; 93005; 99283; 99285

== ENCOUNTER → 2024-02-25 17:51 | Outpatient (BNV) | payer MEDICARE, MEDICAID, SELFPAY | PROVIDERS: Emergency Provider Student in an Organized Health Care Education/Training Program; Visit Provider Internal Medicine Cardiovascular Disease | DX: R07.9 Chest pain, unspecified (principal) | CPT/HCPCS: 93010 ==

== ENCOUNTER 2024-02-26 13:07 | Outpatient (REF) | payer MEDICARE, MEDICAID, SELFPAY ==
[2024-02-26 13:16] LABS: MANUAL DIFF FLAG NO
[2024-02-26 13:28] LABS: Basophils Percent Auto 0.4 % (0-2); Eosinophils Absolute Auto 0.3 X10*3/uL (0.0-0.4); Eosinophils Percent Auto 4.7 % (0-4); Hematocrit 27.3 % (37.0-47.0); Imm Gran Abs Auto 0.06 X10*3/uL (0.00-0.03); Imm Gran Pct Auto 0.8 % (0.0-0.4); Lymphocytes Absolute Auto 1.3 X10*3/uL (1.2-4.9); Lymphocytes Percent Auto 17.6 % (20-40); Mean Corpuscular HGB Conc 29.3 g/dl (31.0-35.0); Mean Corpuscular Hemoglobin 22.4 pg (27.0-33.0); Mean Corpuscular Volume 76.5 fL (80.0-98.0); Mean Platelet Volume 9.8 fL (9.4-12.3); Monocytes Absolute Auto 0.6 X10*3/uL (0.1-1.2); Neutrophils Percent Auto 68.5 % (45-73); Platelet Count 298 X10*3/uL (160-400); Red Blood Count 3.57 X10*6/uL (4.20-5.50); Red Cell Distribution Width 17.2 % (11.0-16.0); White Blood Count 7.3 X10*3/uL (4.8-10.8)
== END 2024-02-26 13:08 | disposition home or self-care (01) ==
LOC: HO.LAB 13:07
PROVIDERS: PCP Nurse Practitioner Family; Visit Provider Psychiatry & Neurology Psychiatry
DX: Z79.899 Other long term (current) drug therapy (principal)
CPT/HCPCS: 36415; 85025

== ENCOUNTER 2024-03-08 21:11 | Emergency (ER) | payer MEDICARE, MEDICAID, SELFPAY ==
--- NOTE | 2024-03-08 | ECG_ITS ---
Test Reason : SOB Blood Pressure : / mmHG Vent. Rate : 106 BPM Atrial Rate : 106 BPM P-R Int : 164 ms QRS Dur : 086 ms QT Int : 346 ms P-R-T Axes : 059 043 059 degrees QTc Int : 459 ms Sinus tachycardia Otherwise normal ECG When compared with ECG of 25-FEB-2024 17:52, No significant change was found Referred By: Generic ED Physician Electronically Signed By:Fabricio Kay
--- NOTE | ~2024-03-08 | XR_ITS ---
EXAMINATION: XR CHEST CLINICAL INFORMATION: Shortness of breath COMPARISON: 02/25/2024 TECHNIQUE: Frontal view of the chest was obtained. FINDINGS: The lungs are clear with no focal consolidation. No evidence of pneumothorax, pulmonary edema, or pleural effusions. The cardiomediastinal silhouette is unremarkable. No acute osseous findings. XR/XR chest 1V IMPRESSION: No acute cardiopulmonary findings.
[2024-03-08 21:15] VITALS: BP 151/97; BP 170/100; PULSE 112; PULSE 114; RESP 17; TEMP 37; O2SAT 98; O2SAT 99; BMI 42.9
--- NOTE | 2024-03-08 21:15 | PC.NURSE ---
pt [facility]a from senior living, reporting onset of shortness of breath and cough with chest pain x1 day. pt denies being around any sick contacts. denies n/v/d at this time. pt sinus tachy on tele 110-118. pt sating 98% on room air. ems gave pt 324mg of asprin prior to arrival.
[2024-03-08 22:20] LABS: MANUAL DIFF FLAG NO
[2024-03-08 22:21] LABS: Basophils Percent Auto 0.5 % (0-2); Eosinophils Absolute Auto 0.4 X10*3/uL (0.0-0.4); Eosinophils Percent Auto 4.8 % (0-4); Hematocrit 27.1 % (37.0-47.0); Hemoglobin 7.8 g/dl (12.0-16.0); Imm Gran Abs Auto 0.09 X10*3/uL (0.00-0.03); Imm Gran Pct Auto 1.1 % (0.0-0.4); Lymphocytes Absolute Auto 1.6 X10*3/uL (1.2-4.9); Lymphocytes Percent Auto 20.3 % (20-40); Mean Corpuscular HGB Conc 28.8 g/dl (31.0-35.0); Mean Corpuscular Hemoglobin 22.3 pg (27.0-33.0); Mean Corpuscular Volume 77.7 fL (80.0-98.0); Mean Platelet Volume 9.7 fL (9.4-12.3); Monocytes Absolute Auto 0.7 X10*3/uL (0.1-1.2); Monocytes Percent Auto 8.3 % (2-11); Neutrophils Absolute Auto 5.1 x10*3/uL (2.0-8.3); Platelet Count 277 X10*3/uL (160-400); Red Blood Count 3.49 X10*6/uL (4.20-5.50); Red Cell Distribution Width 19.3 % (11.0-16.0); White Blood Count 7.9 X10*3/uL (4.8-10.8)
[2024-03-08 22:40] LABS: Alanine Aminotransferase 20 U/L (0-31); Albumin Level 3.9 g/dL (3.5-5.0); Alkaline Phosphatase 130 U/L (39-117); Anion Gap 16 (12-20); Aspartate Amino Transferase 24 U/L (5-31); Bilirubin Total 0.2 mg/dL (0.0-1.0); Blood Urea Nitrogen 13 mg/dL (9-16); Calcium 8.9 mg/dL (8.4-10.2); Carbon Dioxide 21 mmol/L (22-29); Chloride 110 mmol/L (96-108); Creatinine Clr Calc Pharmacy 114.2; Estimated Glomerular Filt Rate > 60; Glucose Random 133 mg/dL (60-115); Potassium 3.8 mmol/L (3.3-5.1); Sodium 143 mmol/L (135-145); Total Protein 6.8 g/dL (6.5-8.0)
[2024-03-08 22:45] LABS: Troponin-I High Sensitivity < 2.7 ng/L (<3.5-17.0)
--- NOTE | 2024-03-08 22:53 | ED.SOB ---
HPI - SOB/Dyspnea General Chief Complaint: Dyspnea Stated Complaint: chest pain,diff breathing Time Seen by Provider: 03/08/24 21:59 Source: patient, EMS, RN notes reviewed and old records reviewed Mode of arrival: EMS Limitations: no limitations History of Present Illness ED Provider: GERMAINE DAVENPORT PA-C HPI Narrative: 48 year old female with pmhx significant for anemia, emphysema, asthma, COPD, longstanding cigarette smoker, mental health disease presents to the ED today via EMS for evaluation of pleuritic chest pain x3 days, worsening acutely x2 hours. Chest pain is located centrally. No radiation. Worse with breathing in and out. She did not try any [id number] pain medications prior to arrival in ED. Endorses associated shortness of breath. Per EMS, patient placed on 2 L nasal cannula EN route for comfort. She was also administered 324 of aspirin. She denies recent travel or long car rides however does endorse sedentary lifestyle. Denies fever, chills, headache, vision changes, dizziness, palpitations, wheezing, syncope, calf pain/swelling, N/V, rashes. Related Data Home Medications ?Medication ?Instructions ?Recorded ?Confirmed fluoxetine 40 mg capsule 80 mg PO DAILY 08/25/23 01/09/24 lorazepam 0.5 mg tablet 0.5 mg PO BID PRN Anxiety 08/31/23 01/09/24 albuterol sulfate 90 mcg/actuation 2 inh inhalation Q4H PRN Shortness 09/17/23 01/09/24 aerosol inhaler (Ventolin HFA) Of Breath Or Wheezing famotidine 10 mg tablet 10 mg PO BID@0630,1630 09/17/23 01/09/24 montelukast 10 mg tablet 10 mg PO BEDTIME 09/17/23 01/09/24 atorvastatin 10 mg tablet 10 mg PO DAILY 10/04/23 01/09/24 benztropine 1 mg tablet 1 mg PO BID 10/04/23 01/09/24 metformin 500 mg tablet 500 mg PO BID 10/04/23 01/09/24 pantoprazole 40 mg tablet,delayed 40 mg PO DAILY@0630 10/04/23 01/09/24 release fluticasone 250 mcg-salmeterol 50 1 ea inhalation BID 11/18/23 01/09/24 mcg/dose blistr powdr for inhalation lisinopril 5 mg tablet 5 mg PO DAILY blood pressure 11/18/23 01/09/24 prazosin 2 mg capsule 4 mg PO BEDTIME 11/18/23 01/09/24 buspirone 10 mg tablet 10 mg PO BID 01/09/24 01/09/24 fluphenazine HCl 5 mg tablet 5 mg PO BID 01/09/24 01/09/24 mirtazapine 15 mg tablet 15 mg PO BEDTIME 01/09/24 01/09/24 Previous Rx's ?Medication ?Instructions ?Recorded haloperidol 5 mg tablet 5 mg PO TID@0900,1530,2100 30 days 11/29/23 #90 tabs lactulose 20 gram/30 mL oral 20 g (30 mL) PO DAILY PRN 11/29/23 solution constipation 30 days #1,200 mL clozapine 25 mg tablet (Clozaril) 75 mg (3 x 25 mg) PO BEDTIME 3 12/23/23 weeks #63 tabs doxycycline hyclate 100 mg capsule 100 mg PO BID 7 days #14 caps 02/12/24 Allergies Allergy/AdvReac Type Severity Reaction Status Date / Time azithromycin [AZITHROMYCIN] Allergy Severe Rash Verified 03/08/24 21:21 Fish Containing Products Allergy Severe Anaphylaxis Verified 03/08/24 21:21 codeine [Codeine] Allergy Intermediate Rash Verified 03/08/24 21:21 Penicillins Allergy Intermediate Rash Verified 03/08/24 21:21 prednisone [Prednisone] Allergy Intermediate Rash Verified 03/08/24 21:21 Sulfa (Sulfonamide Allergy Intermediate Rash Verified 03/08/24 21:21 Antibiotics) [Sulfa (Sulfonamides)] ziprasidone [From Geodon] Allergy Intermediate dysuria, Verified 03/08/24 21:21 rash lithium Allergy Rash Verified 03/08/24 21:21 Review of Systems Review of Systems: Constitutional: No fever, chills, fatigue, night sweats, weight changes ENT/Mouth: No ear pain, hearing loss, nasal congestion, sinus pain, rhinorrhea, sore throat Eyes: No eye pain, swelling, redness, vision changes, discharge Cardio: No palpitations, TEAGUE, orthopnea, peripheral edema, +chest pain Pulm: No cough, sputum, wheezing, dyspnea, hemoptysis, +shortness of breath GI: No nausea, vomiting, hematemesis, abdominal pain, diarrhea, constipation, hematochezia, melena : No irregular bleeding, dysuria, frequency, urgency, hesitancy, hematuria, flank pain, urinary flow changes, urinary incontinence or retention MSK: No back pain, neck pain, joint pain, myalgias Skin: No lesions, rashes Neuro: No weakness, numbness, paresthesias, LOC, dizziness, headache Psych: No anxiety/panic, depression, SI/HI, AH/VH All other systems reviewed and are negative. [facility] Past Medical History Attestation statement: The following information was validated with the patient. Source: old records reviewed and nursing notes reviewed Medical History Suicidal ideation MDD (major depressive disorder), recurrent episode, severe Chest pain Acute anxiety COVID-19 Full body hives Major depression Dizziness Suicide attempt UTI (urinary tract infection) Acetaminophen overdose COVID History of attempted suicide History of non-suicidal self-harm Hypomagnesemia Suicide attempt Suicide attempt by acetaminophen overdose Acetaminophen overdose Depression Diabetes type 2, controlled Borderline personality disorder PTSD (post-traumatic stress disorder) Overdose GERD (gastroesophageal reflux disease) Mood disorder Hyperlipidemia Bronchitis Social History Social History Household Members: None Household Members Other:: [facility]pc Housing: Other Housing Other:: [facility] Do you presently have visiting nurse or other home services: No Unable to assess alcohol history related to: Unknown Alcohol intake: former Comment: sitter in room Patient Tobacco Use Status: Former Tobacco user Quit Date: NA Tobacco use type: Cigarette Cigarette Packs Per Day: 1 Cigarettes Per Day: 20.0 Years Smoked: 22 Smoked in Last 30 Days: Yes e-Cigarette/Vaping Use: Never Used Second Hand Smoke Exposure: No Use of substances other than those prescribed or required for medical reasons: No Substance Use Type: Marijuana Advance Directives: No Advance Directives Information Provided: No Do you have a plan to hurt others: No Plan Patient : No service: No Current occupational status: unemployed and disabled Sexual orientation: Straight/Heterosexual Physical Exam Vital Signs: Vital Signs: Last Vital Signs Temp 98.2 F 03/08/24 23: Pulse 109 H 03/08/24 23:26 Resp 22 H 03/08/24 23:26 BP 147/90 H 03/08/24 23:26 Pulse Ox 98 03/08/24 23:26 O2 Del Method Room Air 03/08/24 23:26 BMI result Body Mass Index 42.9 Patient hypertensive tachycardic. Not hypoxic. Const: General: cooperative, healthy appearing, comfortable and no acute distress Orientation/consciousness: patient oriented x3 Limitations: no limitations HEENT: Head: Yes normal to inspection, Yes No palpable skull fracture present, Yes normocephalic and Yes atraumatic Eyes: General: appearance normal, both eyes and all related structures Neck: Neck: Yes normal visual inspection and Yes full ROM Chest: Chest palpation & inspection: normal inspection of the chest and normal palpation of entire chest wall Resp: Effort & Inspection: normal respiratory effort and able to speak in complete sentences Auscultation: clear to auscultation bilaterally Cardio: Jugular venous distension: no JVD Rate: tachycardic Rhythm: regular rhythm GI: Inspection: Yes obesity Palpation (GI): Soft to palpation and nontender Skin: General skin exam: no rashes or lesions noted Neuro: General: patient oriented x3, gait normal, tone normal and no focal motor deficits Course Course Course Narrative: 2300-- CBC without leukocytosis or left shift. Chronic microcytic anemia, stable when compared to priors. Chemistry without acute electrolyte abnormality requiring intervention. Random glucose 133. Transaminitis with alkaline phosphatase 130. Initial troponin undetectable. Patient has tested negative for COVID, flu, RSV. CXR pending. > on review of vitals, patient tends to run tachycardic. However, given pleuritic chest pain and PERC score of 1, I cannot rule PE out. Ddimer ordered. patient satting 98% on RA. No supplemental O2 required at this time. 0300-- D-dimer undetectable. PE unlikely. Patient's exam unremarkable. No clear etiology for chest pain. Patient has remained stable throughout ED visit today. Discussed worrisome signs and symptoms and when to return to the ED. All questions answered at this time. Patient is agreeable with disposition and stable for discharge. Medications Administered Discontinued Medications Generic Name Dose Route Start Last Admin Trade Name Freq PRN Reason Stop Dose Admin Acetaminophen 975 mg 03/08/24 23:10 03/08/24 23:23 Acetaminophen 325 Mg Tablet PO 03/08/24 23:11 975 mg ONCE ONE Administration Medical Decision Making Medical Decision Making MDM Narrative: 48 year old female with pmhx significant for anemia, emphysema, asthma, COPD, longstanding cigarette smoker, mental health disease presents to the ED today via EMS for evaluation of pleuritic chest pain x3 days, worsening acutely x2 hours. Patient hypertensive and tachycardic. She is nontoxic-appearing and in no acute distress. Lungs are CTA bilaterally. No wheezes or crackles. No JVD. Nonpitting peripheral edema. Skin w/d/i, no rashes. Differential diagnosis includes viral syndrome, pneumonia, ACS, arrhythima. PERC 1 > will r/o PE. Unlikely pleural effusion, CHF. Plan for labs, ekg, trop, cxr, dimer. Differential Diagnosis Differential Diagnoses: The differential diagnosis associated with the presentation includes As above Admission/Observation Consideration of admission/observation: Escalation of care including admission/observation considered Admission considered on presentation. Lab Data [facility] Lab Attestation statement: I reviewed the patient's lab results. As above 03/08/24 22:15 03/08/24 22:15 Labs: Lab Results 03/08/24 03/09/24 Range/Units 22:15 02:31 WBC 7.9 (4.8-10.8) X10*3/uL RBC 3.49 L (4.20-5.50) X10*6/uL Hgb 7.8 L (12.0-16.0) g/dl Hct 27.1 L (37.0-47.0) % MCV 77.7 L (80.0-98.0) fL MCH 22.3 L (27.0-33.0) pg MCHC 28.8 L (31.0-35.0) g/dl RDW 19.3 H (11.0-16.0) % Plt Count 277 (160-400) X10*3/uL MPV 9.7 (9.4-12.3) fL Immature Gran % (Auto) 1.1 H (0.0-0.4) % Neut % (Auto) 65.0 (45-73) % Lymph % (Auto) 20.3 (20-40) % [place] % (Auto) 8.3 (2-11) % Eos % (Auto) 4.8 H (0-4) % Baso % (Auto) 0.5 (0-2) % Lymph # (Auto) 1.6 (1.2-4.9) X10*3/uL [place] # (Auto) 0.7 (0.1-1.2) X10*3/uL Eos # (Auto) 0.4 (0.0-0.4) X10*3/uL Baso # (Auto) 0.0 (0.0-0.2) X10*3/uL Abs Immat Gran (auto) 0.09 H (0.00-0.03) X10*3/uL Absolute Neuts (auto) 5.1 (2.0-8.3) x10*3/uL Absolute Nucleated RBC 0.000 (0.0-0.012) X10*3/uL Nucleated RBC % (auto) 0.0 (0.0-0.2) /100WBC D-Dimer High Sensitivty < 150 NG/ML Sodium 143 (135-145) mmol/L Potassium 3.8 (3.3-5.1) mmol/L Chloride 110 H (96-108) mmol/L Carbon Dioxide 21 L (22-29) mmol/L Anion Gap 16 (12-20) BUN 13 (9-16) mg/dL Creatinine 0.76 (0.5-1.4) mg/dL Estim Creat Clear Calc 114.2 Estimated GFR > 60 Random Glucose 133 H (60-115) mg/dL Calcium 8.9 (8.4-10.2) mg/dL Total Bilirubin 0.2 (0.0-1.0) mg/dL AST 24 (5-31) U/L ALT 20 (0-31) U/L Alkaline Phosphatase 130 H (39-117) U/L Troponin I High Sens < 2.7 (<3.5-17.0) ng/L Total Protein 6.8 (6.5-8.0) g/dL Albumin 3.9 (3.5-5.0) g/dL Influenza Type A (PCR) NEGATIVE (Negative) Influenza Type B (PCR) NEGATIVE (Negative) RSV RNA Qual (PCR) NEGATIVE (Negative) SARS-CoV-2 RNA (RT-PCR) NEGATIVE (Negative) Independent Interpretation I performed an independent interpretation of an: EKG and Plain X-Ray Interpretation: EKG showing sinus tachycardia with a rate of 106 beats per minute, QT 346, QTC 459, no acute ischemic changes or ST elevations. CXR without infiltrate or consolidation, agree with radiologist's interpretation. Radiology Impression Discussion of test interpretation with radiology: I have reviewed the radiologist's reading. Radiologist Impression: EXAMINATION: XR CHEST CLINICAL INFORMATION: Shortness of breath COMPARISON: 02/25/2024 TECHNIQUE: Frontal view of the chest was obtained. FINDINGS: The lungs are clear with no focal consolidation. No evidence of pneumothorax, pulmonary edema, or pleural effusions. The cardiomediastinal silhouette is unremarkable. No acute osseous findings. XR/XR chest 1V IMPRESSION: No acute cardiopulmonary findings. Independent Historian Clinical information obtained from an independent historian. History obtained from or confirmed by: EMS External Record Review External record reviewed: Inpatient record, Office record, Outpatient record, Prior outpatient labs, Prior outpatient radiology, Primary care record and Outside ED record Prescription Management I considered prescription management with: Pain Medication Social Determinants Patient?s care significantly limited by Social Determinants of Health including: Other Social Determinant of Health Critical Care Time Critical Care Time Critical Care Time: No Discharge Plan Discharge Clinical Impression: Chest pain Patient Disposition: Home, Self-Care Instructions: Chest Pain (ED) Additional Instructions: Your lab workup today is reassuring. Your EKG showed fast heart rate and is otherwise normal. Your chest xray is normal. There is no clear etiology for your chest pain. You may take tylenol and/or ibuprofen at home for pain/ discomfort. Return to the ED with new or worsening symptoms. In the case of an emergency call 911. Prescriptions: No Action fluoxetine 40 mg capsule 80 mg PO DAILY lorazepam 0.5 mg tablet 0.5 mg PO BID PRN (Reason: Anxiety) fluticasone propion-salmeterol 250-50 mcg/dose blister with device 1 ea inhalation BID lisinopril 5 mg tablet 5 mg PO DAILY prazosin 2 mg capsule 4 mg PO BEDTIME haloperidol 5 mg Tablet 5 mg PO TID@0900,1530,2100 30 Days Qty: 90 0RF lactulose 20 gram/30 mL Solution 20 g PO DAILY PRN (Reason: constipation) 30 Days Qty: 1200 0RF clozapine [Clozaril] 25 mg tablet 75 mg PO BEDTIME 21 Days Qty: 63 0RF famotidine 10 mg Tablet 10 mg PO BID@0630,1630 albuterol sulfate [Ventolin HFA] 90 mcg/actuation HFA aerosol inhaler 2 inh inhalation Q4H PRN (Reason: Shortness Of Breath Or Wheezing) montelukast 10 mg tablet 10 mg PO BEDTIME metformin 500 mg tablet 500 mg PO BID atorvastatin 10 mg tablet 10 mg PO DAILY pantoprazole 40 mg tablet,delayed release (DR/EC) 40 mg PO DAILY@0630 benztropine 1 mg tablet 1 mg PO BID buspirone [BuSpar] 10 mg Tablet 10 mg PO BID mirtazapine 15 mg Tablet 15 mg PO BEDTIME fluphenazine HCl 5 mg tablet 5 mg PO BID doxycycline hyclate 100 mg capsule 100 mg PO BID 7 Days Qty: 14 0RF Print Language: Albanian
[2024-03-08 22:58] LABS: Influenza A PCR NEGATIVE (Negative); Influenza B PCR NEGATIVE (Negative); Resp Syncy Virus RNA Qual PCR NEGATIVE (Negative); SARS COV2 PCR INHOUSE NEGATIVE (Negative)
[2024-03-08] MEDS: Acetaminophen 325 MG TABLET 975 MG PO (23:23)
--- NOTE | 2024-03-08 23:24 | PC.NURSE ---
pt medicated per mar, tolerated well with water.
[2024-03-08 23:26] VITALS: BP 147/90; PULSE 109; RESP 22; TEMP 36.8; O2SAT 98
[2024-03-09 02:55] LABS: D Dimer High Sensitivity < 150 NG/ML
[2024-03-09 03:11] VITALS: BP 138/85; PULSE 94; RESP 18; TEMP 36.6; O2SAT 98
[2024-03-09 03:28] VITALS: BP 138/85; PULSE 94; RESP 18; TEMP 36.6; O2SAT 98
== END 2024-03-09 03:29 | disposition home or self-care (01) ==
PROVIDERS: Physician Assistant Medical; Emergency Provider Internal Medicine
DX: R07.9 Chest pain, unspecified (principal); R06.02 Shortness of breath; D64.9 Anemia, unspecified; E11.8 Type 2 diabetes mellitus with unspecified complications; E78.5 Hyperlipidemia, unspecified; F17.210 Nicotine dependence, cigarettes, uncomplicated; F12.90 Cannabis use, unspecified, uncomplicated; Z79.84 Long term (current) use of oral hypoglycemic drugs; Z03.818 Encounter for observation for suspected exposure to other biological agents ruled out; Z79.899 Other long term (current) drug therapy; Z79.02 Long term (current) use of antithrombotics/antiplatelets
CPT/HCPCS: 0241U; 36415; 71045; 80053; 84484; 85025; 85379; 93005; 99283; 99285

== ENCOUNTER → 2024-03-08 21:53 | Outpatient (BNV) | payer MEDICARE, MEDICAID, SELFPAY | PROVIDERS: Emergency Provider Internal Medicine; Visit Provider Internal Medicine Cardiovascular Disease | DX: R06.00 Dyspnea, unspecified (principal) | CPT/HCPCS: 93010 ==

== ENCOUNTER 2024-03-10 18:28 | Emergency (ER) | payer MEDICARE, MEDICAID, SELFPAY ==
[2024-03-10 18:50] VITALS: BMI 40.9
[2024-03-10 19:00] VITALS: BP 138/89; PULSE 113; RESP 19; TEMP 37.1; O2SAT 96
--- NOTE | 2024-03-10 19:05 | ED_ITS ---
HPI - General Adult General Chief complaint: Psychiatric Symptoms Stated complaint: from GH, hearing voices, SI, refused vitals Time Seen by Provider: 03/10/24 18:44 Source: patient, RN notes reviewed and old records reviewed Mode of arrival: EMS Limitations: no limitations History of Present Illness ED Provider: Hilda HPI narrative: 48-year-old female with past medical history significant for major depressive episode, PTSD, type 2 diabetes and borderline personality disorder presents for evaluation of depression and visual hallucinations. Patient states that she has been having increasing anxiety and depression for the last 4 days because while my 1-1 at the assisted has been CHARLA and I just found out where she is and it is all my fault. ? Patient also endorses auditory hallucinations and visual hallucinations. She reports hearing voices that are telling her to kill herself. She also endorses seeing her cousin who is previously Patient is requesting to speak to the care team today. Related Data Home Medications ?Medication ?Instructions ?Recorded ?Confirmed fluoxetine 40 mg capsule 80 mg PO DAILY 08/25/23 03/10/24 lorazepam 0.5 mg tablet 0.5 mg PO BID PRN Anxiety 08/31/23 03/10/24 albuterol sulfate 90 mcg/actuation 2 inh inhalation Q4H PRN Shortness 09/17/23 03/10/24 aerosol inhaler (Ventolin HFA) Of Breath Or Wheezing famotidine 10 mg tablet 10 mg PO BID@0630,1630 09/17/23 03/10/24 montelukast 10 mg tablet 10 mg PO BEDTIME 09/17/23 03/10/24 atorvastatin 10 mg tablet 10 mg PO DAILY 10/04/23 03/10/24 benztropine 1 mg tablet 1 mg PO BID 10/04/23 03/10/24 metformin 500 mg tablet 500 mg PO BID 10/04/23 03/10/24 pantoprazole 40 mg tablet,delayed 40 mg PO DAILY@0630 10/04/23 03/10/24 release fluticasone 250 mcg-salmeterol 50 1 ea inhalation BID 11/18/23 03/10/24 mcg/dose blistr powdr for inhalation lisinopril 5 mg tablet 5 mg PO DAILY blood pressure 11/18/23 03/10/24 prazosin 2 mg capsule 4 mg PO BEDTIME 11/18/23 03/10/24 buspirone 10 mg tablet 10 mg PO BID 01/09/24 03/10/24 fluphenazine HCl 5 mg tablet 5 mg PO BID 01/09/24 03/10/24 mirtazapine 15 mg tablet 15 mg PO BEDTIME 01/09/24 03/10/24 Previous Rx's ?Medication ?Instructions ?Recorded haloperidol 5 mg tablet 5 mg PO TID@0900,1530,2100 30 days 11/29/23 #90 tabs lactulose 20 gram/30 mL oral 20 g (30 mL) PO DAILY PRN 11/29/23 solution constipation 30 days #1,200 mL clozapine 25 mg tablet (Clozaril) 75 mg (3 x 25 mg) PO BEDTIME 3 12/23/23 weeks #63 tabs Allergies Allergy/AdvReac Type Severity Reaction Status Date / Time azithromycin [AZITHROMYCIN] Allergy Severe Rash Verified 03/10/24 18:53 Fish Containing Products Allergy Severe Anaphylaxis Verified 03/10/24 18:53 codeine [Codeine] Allergy Intermediate Rash Verified 03/10/24 18:53 Penicillins Allergy Intermediate Rash Verified 03/10/24 18:53 prednisone [Prednisone] Allergy Intermediate Rash Verified 03/10/24 18:53 Sulfa (Sulfonamide Allergy Intermediate Rash Verified 03/10/24 18:53 Antibiotics) [Sulfa (Sulfonamides)] ziprasidone [From Geodon] Allergy Intermediate dysuria, Verified 03/10/24 18:53 rash lithium Allergy Rash Verified 03/10/24 18:53 Review of Systems 2 Constitutional: Constitutional: Denies body ache(s), Denies chills and Denies headache(s) Eyes: Eyes: Denies blurry vision ENT: Denies vertigo, Denies dizziness and Denies headache(s) Cardiovascular: Cardiovascular: Denies chest pain and Denies dyspnea Respiratory: Respiratory: Denies cough and Denies dyspnea Gastrointestinal: Gastrointestinal: Denies abdominal pain, Denies nausea and Denies vomiting Musculoskeletal: Musculoskeletal: Denies back pain Neurologic: Denies vertigo, Denies dizziness and Denies headache(s) Psychiatric: Psychiatric: Reports anxiety, Reports depression, Reports auditory hallucinations, Reports visual hallucinations and Reports suicidal ideation PMFSH Past Medical History Medical History Suicidal ideation MDD (major depressive disorder), recurrent episode, severe Chest pain Acute anxiety COVID-19 Full body hives Major depression Dizziness Suicide attempt UTI (urinary tract infection) Acetaminophen overdose COVID History of attempted suicide History of non-suicidal self-harm Hypomagnesemia Suicide attempt Suicide attempt by acetaminophen overdose Acetaminophen overdose Depression Diabetes type 2, controlled Borderline personality disorder PTSD (post-traumatic stress disorder) Overdose GERD (gastroesophageal reflux disease) Mood disorder Hyperlipidemia Bronchitis Social History Social History Household Members: None Household Members Other:: assisted Housing: Other Housing Other:: [facility] Do you presently have visiting nurse or other home services: No Unable to assess alcohol history related to: Unknown Alcohol intake: former Comment: sitter in room Patient Tobacco Use Status: Former Tobacco user Quit Date: NA Tobacco use type: Cigarette Cigarette Packs Per Day: 1 Cigarettes Per Day: 20.0 Years Smoked: 22 e-Cigarette/Vaping Use: Never Used Second Hand Smoke Exposure: No Substance Use Type: Marijuana Advance Directives: No Advance Directives Information Provided: No Do you have a plan to hurt others: No Plan service: No Current occupational status: unemployed and disabled Sexual orientation: Straight/Heterosexual Physical Exam ED Vital Signs: Vital Signs - 24 hr 03/10/24 19:00 Temperature 98.8 F Pulse Rate 113 H Respiratory Rate 19 Blood Pressure 138/89 Pulse Oximetry 96 Oxygen Delivery Method Room Air BMI result Body Mass Index 40.9 Const General: healthy appearing, comfortable, no acute distress, alert and awake Nutritional Appearance: well nourished Orientation/consciousness: patient oriented x3 HENMT Head: Yes normocephalic and Yes atraumatic Eyes Eyelids: Yes eyelids normal Conjunctivae: conjunctivae normal Sclerae: sclerae normal Corneas: corneas normal Pupils: Equal, round and reactive pupils present EOM: EOMs intact bilaterally Neck Neck: Yes full ROM Resp Effort & Inspection: normal respiratory effort, able to speak in complete sentences and not labored GI Inspection: No distended Palpation (GI): Soft to palpation, not firm, nontender, no guarding and not rigid Skin General skin exam: elasticity normal Neuro General: patient oriented x3 Cranial nerves: Yes Equal, round and reactive pupils present and Yes Bilaterally intact EOM present Cognition (Neuro): normal cognition Extrem Other: Moving all extremities well without any obvious deformities Course Reevaluation(s) Reevaluation #1: Patient was seen by the care team and cleared for discharge at this time Time: 22:02 Medications Administered Discontinued Medications Generic Name Dose Route Start Last Admin Trade Name Elmer PRN Reason Stop Dose Admin Haloperidol 5 mg 03/10/24 19:15 03/10/24 19:24 Haloperidol 5 Mg Tablet PO 03/10/24 19:16 5 mg ONCE ONE Administration Lorazepam 2 mg 03/10/24 19:15 03/10/24 19:24 Lorazepam 1 Mg Tablet PO 03/10/24 19:16 2 mg ONCE ONE Administration Medical Decision Making Medical Decision Making MDM Narrative: 48-year-old female who is well known to this emergency department for previous psych visits. Plan for medical clearance and care team evaluation. Differential Diagnosis Differential Diagnoses: The differential diagnosis associated with the presentation includes Depression Anxiety Suicidal ideation Bipolar disorder Visual hallucination Lab Data [facility] Lab Attestation statement: I reviewed the patient's lab results. There is no leukocytosis. The patient does have a chronic ascitic anemia that is consistent with her baseline. 03/10/24 19:23 03/10/24 19:23 Labs: Lab Results 03/10/24 Range/Units 19:23 WBC 8.6 (4.8-10.8) X10*3/uL RBC 3.84 L (4.20-5.50) X10*6/uL Hgb 8.6 L (12.0-16.0) g/dl Hct 29.9 L (37.0-47.0) % MCV 77.9 L (80.0-98.0) fL MCH 22.4 L (27.0-33.0) pg MCHC 28.8 L (31.0-35.0) g/dl RDW 20.2 H (11.0-16.0) % Plt Count 309 (160-400) X10*3/uL MPV 9.8 (9.4-12.3) fL Immature Gran % (Auto) 1.2 H (0.0-0.4) % Neut % (Auto) 67.7 (45-73) % Lymph % (Auto) 18.1 L (20-40) % [place] % (Auto) 7.7 (2-11) % Eos % (Auto) 4.7 H (0-4) % Baso % (Auto) 0.6 (0-2) % Lymph # (Auto) 1.6 (1.2-4.9) X10*3/uL [place] # (Auto) 0.7 (0.1-1.2) X10*3/uL Eos # (Auto) 0.4 (0.0-0.4) X10*3/uL Baso # (Auto) 0.1 (0.0-0.2) X10*3/uL Abs Immat Gran (auto) 0.10 H (0.00-0.03) X10*3/uL Absolute Neuts (auto) 5.8 (2.0-8.3) x10*3/uL Absolute Nucleated RBC 0.000 (0.0-0.012) X10*3/uL Nucleated RBC % (auto) 0.0 (0.0-0.2) /100WBC Sodium 140 (135-145) mmol/L Potassium 3.7 (3.3-5.1) mmol/L Chloride 106 (96-108) mmol/L Carbon Dioxide 21 L (22-29) mmol/L Anion Gap 17 (12-20) BUN 11 (9-16) mg/dL Creatinine 0.79 (0.5-1.4) mg/dL Estim Creat Clear Calc 110.7 Estimated GFR > 60 Random Glucose 150 H (60-115) mg/dL Calcium 9.4 (8.4-10.2) mg/dL Total Bilirubin 0.3 (0.0-1.0) mg/dL AST 18 (5-31) U/L ALT 18 (0-31) U/L Alkaline Phosphatase 142 H (39-117) U/L Total Protein 7.3 (6.5-8.0) g/dL Albumin 4.3 (3.5-5.0) g/dL Urine Color Yellow Urine Appearance Clear Urine pH 6.0 (5.0-9.0) Ur Specific [place] <= 1.005 (1.005-1.025) Urine Protein Negative (Neg-Trace) mg/dL Urine Glucose (UA) Negative (Negative) mg/dL Urine Ketones Negative (Negative) mg/dL Urine Blood Negative (Negative) Urine Nitrite Negative (Negative) Ur Leukocyte Esterase Negative (Negative) Salicylates < 5.0 L (15-30) mg/dL Urine Opiates Screen Not Detected (Not Detect) Ur Buprenorphine Scrn Not Detected (Not Detect) ng/mL Ur Oxycodone Screen Not Detected (Not Detect) ng/mL Urine Methadone Screen Not Detected (Not Detect) ng/mL Urine Fentanyl Screen Not Detected (Not Detect) Acetaminophen < 3 (<30) mcg/mL Ur Barbiturates Screen Not Detected (Not Detect) Ur Phencyclidine Scrn Not Detected (Not Detect) Ur Amphetamines Screen Not Detected (Not Detect) U Benzodiazepines Scrn Not Detected (Not Detect) Urine Cocaine Screen Not Detected (Not Detect) U Marijuana (THC) Screen Not Detected (Not Detect) Ethyl Alcohol < 10 mg/dL Discharge Plan Discharge Clinical Impression: Borderline personality disorder, Depression, Auditory hallucination, Hallucination, visual Patient Disposition: Home, Self-Care Instructions: Depression (ED), Anxiety (ED) Additional Instructions: Take all your medications as prescribed. Return for new or worsening symptoms Prescriptions: No Action fluoxetine 40 mg capsule 80 mg PO DAILY lorazepam 0.5 mg tablet 0.5 mg PO BID PRN (Reason: Anxiety) fluticasone propion-salmeterol 250-50 mcg/dose blister with device 1 ea inhalation BID lisinopril 5 mg tablet 5 mg PO DAILY prazosin 2 mg capsule 4 mg PO BEDTIME haloperidol 5 mg Tablet 5 mg PO TID@0900,1530,2100 30 Days Qty: 90 0RF lactulose 20 gram/30 mL Solution 20 g PO DAILY PRN (Reason: constipation) 30 Days Qty: 1200 0RF clozapine [Clozaril] 25 mg tablet 75 mg PO BEDTIME 21 Days Qty: 63 0RF famotidine 10 mg Tablet 10 mg PO BID@0630,1630 albuterol sulfate [Ventolin HFA] 90 mcg/actuation HFA aerosol inhaler 2 inh inhalation Q4H PRN (Reason: Shortness Of Breath Or Wheezing) montelukast 10 mg tablet 10 mg PO BEDTIME metformin 500 mg tablet 500 mg PO BID atorvastatin 10 mg tablet 10 mg PO DAILY pantoprazole 40 mg tablet,delayed release (DR/EC) 40 mg PO DAILY@0630 benztropine 1 mg tablet 1 mg PO BID buspirone [BuSpar] 10 mg Tablet 10 mg PO BID mirtazapine 15 mg Tablet 15 mg PO BEDTIME fluphenazine HCl 5 mg tablet 5 mg PO BID Interventions: [place]-Suicide Risk Severity Scale Last Done: 03/10/24 21:57 Print Language: Norwegian
[2024-03-10] MEDS: LORazepam 1 MG TABLET 2 MG PO (19:24)
[2024-03-10] MEDS: HaloperidoL 5 MG TABLET PO (19:24)
[2024-03-10 19:32] LABS: MANUAL DIFF FLAG NO
[2024-03-10 19:35] LABS: Appearance Urine Clear; Color Urine Yellow; Glucose Urine UA Negative (Negative); Leukocyte Esterase Urine Negative (Negative); Nitrite Urine Negative (Negative); Specific Gravity - Urine <= 1.005 (1.005-1.025); Urine Blood Negative (Negative); Urine Ketones Negative (Negative); Urine Protein Negative (Neg-Trace)
[2024-03-10 19:36] LABS: Basophils Absolute Auto 0.1 X10*3/uL (0.0-0.2); Basophils Percent Auto 0.6 % (0-2); Eosinophils Absolute Auto 0.4 X10*3/uL (0.0-0.4); Eosinophils Percent Auto 4.7 % (0-4); Hematocrit 29.9 % (37.0-47.0); Hemoglobin 8.6 g/dl (12.0-16.0); Imm Gran Pct Auto 1.2 % (0.0-0.4); Lymphocytes Absolute Auto 1.6 X10*3/uL (1.2-4.9); Lymphocytes Percent Auto 18.1 % (20-40); Mean Corpuscular HGB Conc 28.8 g/dl (31.0-35.0); Mean Corpuscular Hemoglobin 22.4 pg (27.0-33.0); Mean Corpuscular Volume 77.9 fL (80.0-98.0); Mean Platelet Volume 9.8 fL (9.4-12.3); Monocytes Absolute Auto 0.7 X10*3/uL (0.1-1.2); Monocytes Percent Auto 7.7 % (2-11); Neutrophils Absolute Auto 5.8 x10*3/uL (2.0-8.3); Neutrophils Percent Auto 67.7 % (45-73); Platelet Count 309 X10*3/uL (160-400); Red Blood Count 3.84 X10*6/uL (4.20-5.50); Red Cell Distribution Width 20.2 % (11.0-16.0); White Blood Count 8.6 X10*3/uL (4.8-10.8)
[2024-03-10 19:44] LABS: Amphetamine Screen Urine Not Detected (Not Detect); Barbiturates, Urine Not Detected (Not Detect); Benzodiazepines Screen Urine Not Detected (Not Detect); Buprenorphine Scr Not Detected (Not Detect); Cannabinoid Screen Urine Not Detected (Not Detect); Cocaine Screen Urine Not Detected (Not Detect); Fentanyl, urine Not Detected (Not Detect); Methadone Screen, Urine Not Detected (Not Detect); Opiate Screen Urine Not Detected (Not Detect); Oxycodone Screen Urine Not Detected (Not Detect); Phencyclidine Screen Urine Not Detected (Not Detect)
[2024-03-10 19:57] LABS: Acetaminophen LAB < 3 mcg/mL (<30); Alanine Aminotransferase 18 U/L (0-31); Albumin Level 4.3 g/dL (3.5-5.0); Alkaline Phosphatase 142 U/L (39-117); Anion Gap 17 (12-20); Aspartate Amino Transferase 18 U/L (5-31); Bilirubin Total 0.3 mg/dL (0.0-1.0); Blood Urea Nitrogen 11 mg/dL (9-16); Calcium 9.4 mg/dL (8.4-10.2); Carbon Dioxide 21 mmol/L (22-29); Chloride 106 mmol/L (96-108); Creatinine Clr Calc Pharmacy 110.7; Estimated Glomerular Filt Rate > 60; Ethanol < 10 mg/dL; Glucose Random 150 mg/dL (60-115); Potassium 3.7 mmol/L (3.3-5.1); Salicylate < 5.0 mg/dL (15-30); Sodium 140 mmol/L (135-145); Total Protein 7.3 g/dL (6.5-8.0)
[2024-03-10 22:02] VITALS: BP 143/76; PULSE 109; RESP 17; TEMP 36.3; O2SAT 96
== END 2024-03-10 22:14 | disposition home or self-care (01) ==
PROVIDERS: Physician Assistant; Emergency Provider Internal Medicine
DX: R44.0 Auditory hallucinations (principal); R44.1 Visual hallucinations; F60.3 Borderline personality disorder; F32.A Depression, unspecified; E11.9 Type 2 diabetes mellitus without complications
CPT/HCPCS: 36415; 80053; 80143; 80179; 80307; 81003; 85025; 99283; 99284; S9485

== ENCOUNTER 2024-03-12 15:13 | Outpatient (REF) | payer MEDICARE, MEDICAID, SELFPAY ==
[2024-03-12 15:31] LABS: MANUAL DIFF FLAG NO
[2024-03-12 16:12] LABS: Basophils Percent Auto 0.5 % (0-2); Eosinophils Absolute Auto 0.5 X10*3/uL (0.0-0.4); Eosinophils Percent Auto 5.5 % (0-4); Hematocrit 30.7 % (37.0-47.0); Hemoglobin 8.8 g/dl (12.0-16.0); Imm Gran Abs Auto 0.07 X10*3/uL (0.00-0.03); Imm Gran Pct Auto 0.9 % (0.0-0.4); Lymphocytes Absolute Auto 1.5 X10*3/uL (1.2-4.9); Lymphocytes Percent Auto 18.3 % (20-40); Mean Corpuscular HGB Conc 28.7 g/dl (31.0-35.0); Mean Corpuscular Hemoglobin 22.9 pg (27.0-33.0); Mean Corpuscular Volume 79.9 fL (80.0-98.0); Mean Platelet Volume 10.1 fL (9.4-12.3); Monocytes Absolute Auto 0.7 X10*3/uL (0.1-1.2); NRBC Pct Auto 0.2 /100WBC (0.0-0.2); Neut%MD 66.8 %; Neutrophils Absolute Auto 5.5 x10*3/uL (2.0-8.3); Neutrophils Percent Auto 66.8 % (45-73); Platelet Count 320 X10*3/uL (160-400); Red Blood Count 3.84 X10*6/uL (4.20-5.50); Red Cell Distribution Width 21.2 % (11.0-16.0); WBCANC 8.2 X10*3/uL; White Blood Count 8.2 X10*3/uL (4.8-10.8)
== END 2024-03-12 15:14 | disposition home or self-care (01) ==
LOC: HO.LABR 15:13
PROVIDERS: Visit Provider Psychiatry & Neurology Psychiatry
DX: Z79.899 Other long term (current) drug therapy (principal)
CPT/HCPCS: 36415; 85025

== ENCOUNTER 2024-03-16 22:44 | Emergency (ER) | payer MEDICARE, MEDICAID, SELFPAY ==
--- NOTE | ~2024-03-16 | XR_ITS ---
EXAMINATION: XR CHEST CLINICAL INFORMATION: Dyspnea, COPD COMPARISON: 03/08/2024 TECHNIQUE: Frontal view of the chest was obtained. FINDINGS: Lung volumes are symmetric. No focal consolidation is seen. No evidence of pneumothorax, significant pleural effusion, or overt pulmonary edema. The cardiomediastinal contour is unremarkable. No acute osseous findings are seen. XR/XR chest 1V IMPRESSION: No acute cardiopulmonary findings.
[2024-03-16 22:46] VITALS: BP 154/88; PULSE 110
[2024-03-16 23:09] VITALS: BP 161/80; PULSE 102; RESP 20; TEMP 36.9; O2SAT 97; BMI 40.5
--- NOTE | 2024-03-17 01:14 | PC.NURSE ---
pt telling this website/blog editor that she is now having thoughts of hurting self. medical records receptionist made aware, pt brought into pod room #1.
--- NOTE | 2024-03-17 01:21 | ED_ITS ---
HPI - SOB/Dyspnea General Chief Complaint: Psychiatric Symptoms Stated Complaint: diff breathing, wheezing bilat, hx COPD, Asthma Time Seen by Provider: 03/17/24 01:20 Source: patient Mode of arrival: ambulatory Limitations: no limitations History of Present Illness ED Provider: gem KIRBY Narrative: Patient history of bipolar disorder asthma was seen at [facility] yesterday for trying to cut her left forearm comes here as she feeling short of breath saturating 97% says that she is any we can not eat blood transfusion but hemoglobin was 8.8 last time patient is taking iron tablets after coming to the ER patient says that she was feeling suicidal Related Data Home Medications ?Medication ?Instructions ?Recorded ?Confirmed fluoxetine 40 mg capsule 80 mg PO DAILY 08/25/23 03/10/24 lorazepam 0.5 mg tablet 0.5 mg PO BID PRN Anxiety 08/31/23 03/10/24 albuterol sulfate 90 mcg/actuation 2 inh inhalation Q4H PRN Shortness 09/17/23 03/10/24 aerosol inhaler (Ventolin HFA) Of Breath Or Wheezing famotidine 10 mg tablet 10 mg PO BID@0630,1630 09/17/23 03/10/24 montelukast 10 mg tablet 10 mg PO BEDTIME 09/17/23 03/10/24 atorvastatin 10 mg tablet 10 mg PO DAILY 10/04/23 03/10/24 benztropine 1 mg tablet 1 mg PO BID 10/04/23 03/10/24 metformin 500 mg tablet 500 mg PO BID 10/04/23 03/10/24 pantoprazole 40 mg tablet,delayed 40 mg PO DAILY@0630 10/04/23 03/10/24 release fluticasone 250 mcg-salmeterol 50 1 ea inhalation BID 11/18/23 03/10/24 mcg/dose blistr powdr for inhalation lisinopril 5 mg tablet 5 mg PO DAILY blood pressure 11/18/23 03/10/24 prazosin 2 mg capsule 4 mg PO BEDTIME 11/18/23 03/10/24 buspirone 10 mg tablet 10 mg PO BID 01/09/24 03/10/24 fluphenazine HCl 5 mg tablet 5 mg PO BID 01/09/24 03/10/24 mirtazapine 15 mg tablet 15 mg PO BEDTIME 01/09/24 03/10/24 Previous Rx's ?Medication ?Instructions ?Recorded haloperidol 5 mg tablet 5 mg PO TID@0900,1530,2100 30 days 11/29/23 #90 tabs lactulose 20 gram/30 mL oral 20 g (30 mL) PO DAILY PRN 11/29/23 solution constipation 30 days #1,200 mL clozapine 25 mg tablet (Clozaril) 75 mg (3 x 25 mg) PO BEDTIME 3 12/23/23 weeks #63 tabs Allergies Allergy/AdvReac Type Severity Reaction Status Date / Time azithromycin [AZITHROMYCIN] Allergy Severe Rash Verified 03/16/24 23:12 Fish Containing Products Allergy Severe Anaphylaxis Verified 03/16/24 23:12 codeine [Codeine] Allergy Intermediate Rash Verified 03/16/24 23:12 Penicillins Allergy Intermediate Rash Verified 03/16/24 23:12 prednisone [Prednisone] Allergy Intermediate Rash Verified 03/16/24 23:12 Sulfa (Sulfonamide Allergy Intermediate Rash Verified 03/16/24 23:12 Antibiotics) [Sulfa (Sulfonamides)] ziprasidone [From Geodon] Allergy Intermediate dysuria, Verified 03/16/24 23:12 rash lithium Allergy Rash Verified 03/16/24 23:12 Review of Systems 2 Review of Systems: Yes all other systems are reviewed and are negative PMFSH Past Medical History Medical History Suicidal ideation MDD (major depressive disorder), recurrent episode, severe Chest pain Acute anxiety COVID-19 Full body hives Major depression Dizziness Suicide attempt UTI (urinary tract infection) Acetaminophen overdose COVID History of attempted suicide History of non-suicidal self-harm Hypomagnesemia Suicide attempt Suicide attempt by acetaminophen overdose Acetaminophen overdose Depression Diabetes type 2, controlled Borderline personality disorder PTSD (post-traumatic stress disorder) Overdose GERD (gastroesophageal reflux disease) Mood disorder Hyperlipidemia Bronchitis Social History Social History Household Members: None Household Members Other:: custodial Housing: Other Housing Other:: Skilled Nursing Do you presently have visiting nurse or other home services: No Unable to assess alcohol history related to: Unknown Alcohol intake: former Comment: sitter in room Patient Tobacco Use Status: Former Tobacco user Tobacco use type: Cigarette Cigarette Packs Per Day: 1 Cigarettes Per Day: 20.0 Years Smoked: 22 Smoked in Last 30 Days: Yes e-Cigarette/Vaping Use: Never Used Second Hand Smoke Exposure: No Use of substances other than those prescribed or required for medical reasons: No Substance Use Type: Marijuana Advance Directives: No Advance Directives Information Provided: No Advance Directives on File: No Do you have a plan to hurt others: No Plan Patient : No service: No Current occupational status: unemployed and disabled Sexual orientation: Straight/Heterosexual Physical Exam 2 Vital Signs: Vital Signs: Last Vital Signs Temp 97.9 F 03/17/24 06:15 Pulse 88 03/17/24 06:15 Resp 19 03/17/24 06:15 BP 135/82 03/17/24 06:15 Pulse Ox 97 03/17/24 06:15 O2 Del Method Room Air 03/17/24 06:15 BMI result Body Mass Index 40.5 Appearance: Alert. Oriented X3. No acute distress. Eyes: Pallor+ ENT: Pharynx normal. Oral Mucosa moist Neck: Normal inspection. Neck supple. CVS: Normal heart rate and rhythm. Pulses normal. Respiratory: No respiratory distress. Equal air entry bilateral, no wheezing/rales/rhonchi Abdomen: Soft and nontender. Bowel sounds are present, no mass palpable, no CVA tenderness Skin: Skin warm and dry. Normal skin color. Normal skin turgor. Extremities: No lower extremity edema. No calf tenderness psych: Stable mood denied any SI at this time but had command hallucinations earlier Neuro: Oriented X 3. No motor deficit. No sensory deficit.No cerebellar signs , cranial nerves II-XII intact Medications Administered Discontinued Medications Generic Name Dose Route Start Last Admin Trade Name Elmer PRN Reason Stop Dose Admin Albuterol Sulfate 2 puff 03/17/24 01:49 03/17/24 03:12 Albuterol Sulfate 90 Mcg 8 Gm Inhaler INHALE 03/17/24 01:50 Not Given ONCE ONE Albuterol Sulfate 2.5 mg 03/17/24 03:23 03/17/24 03:24 Albuterol Sulfate (0.083%) 2.5 Mg/3 Ml Vial.Neb INHALE 03/17/24 03:24 2.5 mg ONCE ONE Administration Medical Decision Making Medical Decision Making MDM Narrative: Patient with depression with frequent ED visits for suicidal feeling was seen at [facility] yesterday discharge comes here for similar feeling also complaining of shortness a breath does have a baseline history of COPD iron- deficiency anemia H&H stable will get care team evaluation Lab Data MDM Lab Attestation statement: I reviewed the patient's lab results. 03/17/24 02:14 03/17/24 02:14 Labs: Lab Results 03/17/24 03/17/24 03/17/24 Range/Units 00:55 02:11 02:14 WBC 7.0 (4.8-10.8) X10*3/uL RBC 3.78 L (4.20-5.50) X10*6/uL Hgb 9.1 L (12.0-16.0) g/dl Hct 30.6 L (37.0-47.0) % MCV 81.0 (80.0-98.0) fL MCH 24.1 L (27.0-33.0) pg MCHC 29.7 L (31.0-35.0) g/dl RDW 23.6 H (11.0-16.0) % Plt Count 281 (160-400) X10*3/uL MPV 9.8 (9.4-12.3) fL Immature Gran % (Auto) 0.9 H (0.0-0.4) % Neut % (Auto) 59.7 (45-73) % Lymph % (Auto) 24.6 (20-40) % [place] % (Auto) 8.8 (2-11) % Eos % (Auto) 5.4 H (0-4) % Baso % (Auto) 0.6 (0-2) % Lymph # (Auto) 1.7 (1.2-4.9) X10*3/uL [place] # (Auto) 0.6 (0.1-1.2) X10*3/uL Eos # (Auto) 0.4 (0.0-0.4) X10*3/uL Baso # (Auto) 0.0 (0.0-0.2) X10*3/uL Abs Immat Gran (auto) 0.06 H (0.00-0.03) X10*3/uL Absolute Neuts (auto) 4.2 (2.0-8.3) x10*3/uL Absolute Nucleated RBC 0.000 (0.0-0.012) X10*3/uL Nucleated RBC % (auto) 0.0 (0.0-0.2) /100WBC Sodium 142 (135-145) mmol/L Potassium 3.7 (3.3-5.1) mmol/L Chloride 109 H (96-108) mmol/L Carbon Dioxide 25 (22-29) mmol/L Anion Gap 12 (12-20) BUN 16 (9-16) mg/dL Creatinine 0.78 (0.5-1.4) mg/dL Estim Creat Clear Calc 107.6 Estimated GFR > 60 Random Glucose 115 (60-115) mg/dL Calcium 9.1 (8.4-10.2) mg/dL Total Bilirubin 0.2 (0.0-1.0) mg/dL AST 16 (5-31) U/L ALT 14 (0-31) U/L Alkaline Phosphatase 136 H (39-117) U/L Total Protein 6.9 (6.5-8.0) g/dL Albumin 4.1 (3.5-5.0) g/dL Urine Color Yellow Urine Appearance Clear Urine pH 6.0 (5.0-9.0) Ur Specific [place] >= 1.030 H (1.005-1.025) Urine Protein Trace (Neg-Trace) mg/dL Urine Glucose (UA) Negative (Negative) mg/dL Urine Ketones Trace (Negative) mg/dL Urine Blood Small (1+) H (Negative) Urine Nitrite Positive H (Negative) Ur Leukocyte Esterase Negative (Negative) Urine RBC 3-5 H (0-2) /HPF Urine WBC 0-5 (0-5) /HPF Ur Squamous Epith Cells 3-5 (0-2) /HPF Urine Bacteria 1+ (None Seen) Hyaline Casts 0-2 (0-2) /LPF Urine Opiates Screen Not Detected (Not Detect) Ur Buprenorphine Scrn Not Detected (Not Detect) ng/mL Ur Oxycodone Screen Not Detected (Not Detect) ng/mL Urine Methadone Screen Not Detected (Not Detect) ng/mL Urine Fentanyl Screen Not Detected (Not Detect) Ur Barbiturates Screen Not Detected (Not Detect) Ur Phencyclidine Scrn Not Detected (Not Detect) Ur Amphetamines Screen Not Detected (Not Detect) U Benzodiazepines Scrn Not Detected (Not Detect) Urine Cocaine Screen Not Detected (Not Detect) U Marijuana (THC) Screen Not Detected (Not Detect) Ethyl Alcohol < 10 mg/dL Influenza Type A (PCR) NEGATIVE (Negative) Influenza Type B (PCR) NEGATIVE (Negative) RSV RNA Qual (PCR) NEGATIVE (Negative) SARS-CoV-2 RNA (RT-PCR) NEGATIVE (Negative) Discharge Plan Discharge Clinical Impression: Depression with suicidal ideation, Bipolar disorder, Iron deficiency anemia Patient Disposition: Still a Patient Prescriptions: No Action fluoxetine 40 mg capsule 80 mg PO DAILY lorazepam 0.5 mg tablet 0.5 mg PO BID PRN (Reason: Anxiety) fluticasone propion-salmeterol 250-50 mcg/dose blister with device 1 ea inhalation BID lisinopril 5 mg tablet 5 mg PO DAILY prazosin 2 mg capsule 4 mg PO BEDTIME haloperidol 5 mg Tablet 5 mg PO TID@0900,1530,2100 30 Days Qty: 90 0RF lactulose 20 gram/30 mL Solution 20 g PO DAILY PRN (Reason: constipation) 30 Days Qty: 1200 0RF clozapine [Clozaril] 25 mg tablet 75 mg PO BEDTIME 21 Days Qty: 63 0RF famotidine 10 mg Tablet 10 mg PO BID@0630,1630 albuterol sulfate [Ventolin HFA] 90 mcg/actuation HFA aerosol inhaler 2 inh inhalation Q4H PRN (Reason: Shortness Of Breath Or Wheezing) montelukast 10 mg tablet 10 mg PO BEDTIME metformin 500 mg tablet 500 mg PO BID atorvastatin 10 mg tablet 10 mg PO DAILY pantoprazole 40 mg tablet,delayed release (DR/EC) 40 mg PO DAILY@0630 benztropine 1 mg tablet 1 mg PO BID buspirone [BuSpar] 10 mg Tablet 10 mg PO BID mirtazapine 15 mg Tablet 15 mg PO BEDTIME fluphenazine HCl 5 mg tablet 5 mg PO BID Interventions: [place]-Suicide Risk Severity Scale Last Done: 03/17/24 01:47 Print Language: [place]ese
[2024-03-17 01:24] VITALS: BP 137/90; PULSE 100; RESP 20; TEMP 36.6; O2SAT 96
[2024-03-17 01:38] LABS: Influenza A PCR NEGATIVE (Negative); Influenza B PCR NEGATIVE (Negative); Resp Syncy Virus RNA Qual PCR NEGATIVE (Negative); SARS COV2 PCR INHOUSE NEGATIVE (Negative)
--- NOTE | 2024-03-17 01:51 | PC.NURSE ---
pt brought from waiting room to pod at this time, pt a&ox4, respirations even and unlabored. pt initially presets to ED with increasing shortness of breath and cough. pt reports now she is having thoughts of SI with plan; pt plan to cut into arms and bleed out. pt noted to have cut hewitt to bilateral forearms, left forearm covered with dry gauze at this time. pt changed over by security and belongings secured in locker 1. Dr. Martinez at bedside to assess pt, plan for care team in AM.
[2024-03-17 02:20] LABS: MANUAL DIFF FLAG NO
[2024-03-17 02:22] LABS: Basophils Percent Auto 0.6 % (0-2); Eosinophils Absolute Auto 0.4 X10*3/uL (0.0-0.4); Eosinophils Percent Auto 5.4 % (0-4); Hematocrit 30.6 % (37.0-47.0); Hemoglobin 9.1 g/dl (12.0-16.0); Imm Gran Abs Auto 0.06 X10*3/uL (0.00-0.03); Imm Gran Pct Auto 0.9 % (0.0-0.4); Lymphocytes Absolute Auto 1.7 X10*3/uL (1.2-4.9); Lymphocytes Percent Auto 24.6 % (20-40); Mean Corpuscular HGB Conc 29.7 g/dl (31.0-35.0); Mean Corpuscular Hemoglobin 24.1 pg (27.0-33.0); Mean Platelet Volume 9.8 fL (9.4-12.3); Monocytes Absolute Auto 0.6 X10*3/uL (0.1-1.2); Monocytes Percent Auto 8.8 % (2-11); Neutrophils Absolute Auto 4.2 x10*3/uL (2.0-8.3); Neutrophils Percent Auto 59.7 % (45-73); Platelet Count 281 X10*3/uL (160-400); Red Blood Count 3.78 X10*6/uL (4.20-5.50); Red Cell Distribution Width 23.6 % (11.0-16.0)
[2024-03-17 02:39] LABS: Alanine Aminotransferase 14 U/L (0-31); Albumin Level 4.1 g/dL (3.5-5.0); Alkaline Phosphatase 136 U/L (39-117); Anion Gap 12 (12-20); Aspartate Amino Transferase 16 U/L (5-31); Bilirubin Total 0.2 mg/dL (0.0-1.0); Blood Urea Nitrogen 16 mg/dL (9-16); Calcium 9.1 mg/dL (8.4-10.2); Carbon Dioxide 25 mmol/L (22-29); Chloride 109 mmol/L (96-108); Creatinine Clr Calc Pharmacy 107.6; Estimated Glomerular Filt Rate > 60; Ethanol < 10 mg/dL; Glucose Random 115 mg/dL (60-115); Potassium 3.7 mmol/L (3.3-5.1); Sodium 142 mmol/L (135-145); Total Protein 6.9 g/dL (6.5-8.0)
[2024-03-17 02:39] LABS: Amphetamine Screen Urine Not Detected (Not Detect); Barbiturates, Urine Not Detected (Not Detect); Benzodiazepines Screen Urine Not Detected (Not Detect); Buprenorphine Scr Not Detected (Not Detect); Cannabinoid Screen Urine Not Detected (Not Detect); Cocaine Screen Urine Not Detected (Not Detect); Fentanyl, urine Not Detected (Not Detect); Methadone Screen, Urine Not Detected (Not Detect); Opiate Screen Urine Not Detected (Not Detect); Oxycodone Screen Urine Not Detected (Not Detect); Phencyclidine Screen Urine Not Detected (Not Detect)
[2024-03-17 02:41] LABS: Appearance Urine Clear; Color Urine Yellow; Glucose Urine UA Negative (Negative); Leukocyte Esterase Urine Negative (Negative); Nitrite Urine Positive (Negative); Specific Gravity - Urine >= 1.030 (1.005-1.025); UMIC TRIGGER UACC YES; Urine Blood Small (1+) (Negative); Urine Ketones Trace mg/dL (Negative); Urine Protein Trace mg/dL (Neg-Trace)
[2024-03-17 02:42] LABS: UACC Culture Trigger YES; WBC Urine 0-5 /HPF (0-5)
[2024-03-17 02:43] LABS: Bacteria Urine 1+ (None Seen); Hyaline Casts Urine 0-2 /LPF (0-2)
--- NOTE | 2024-03-17 03:11 | PC.NURSE ---
respiratory at bedside doing duoneb for pt.
[2024-03-17 03:24] VITALS: PULSE 100; RESP 18; O2SAT 96
[2024-03-17] MEDS: Albuterol Sulfate (0.083%) 2.5 MG/3 ML VIAL.NEB INHALE (03:24)
--- NOTE | 2024-03-17 05:33 | PC.NURSE ---
pt ambulated to bathroom with steady gait.
[2024-03-17 06:15] VITALS: BP 135/82; PULSE 88; RESP 19; TEMP 36.6; O2SAT 97
--- NOTE | 2024-03-17 07:01 | PC.NURSE ---
Assumed care of patient at 0645. Patient is observed resting quietly in their bed. No signs of distress observed. Breathing is even and unlabored. Will continue plan of care.
--- NOTE | 2024-03-17 13:34 | MHC.CARE ---
Called Vini Leach at [phone] and [phone], no answer, messages left. Emailed Lidia Candelaria [facility] Client Service Manager ([email or web address] requesting assistance in contacting someone from the [facility]dc Called Toni Kendall [facility] Pan Puller ([phone]) at [phone], no answer, Message left Called Lidia Candelaria [facility] Client Service Manager at [phone], no answer, Message left
--- NOTE | 2024-03-17 13:54 | MHC.CARE ---
CARE Team called: Darcy Pat, [facility] Trust Manager Assistant ([phone]) at [phone], no answer, message left Toni Pittman, architect manager at [phone], no answer Trever Reyes, Cupola Liner Helper ([phone]), at [phone], no answer, message left Zachary Maki, Hose Tubing Backer ([phone]) at [phone], no answer, message left
--- NOTE | 2024-03-17 14:02 | MHC.CARE ---
Pt placed on alert with [facility]
[2024-03-17 14:15] VITALS: BP 135/88; PULSE 88; RESP 19; TEMP 36.6; O2SAT 97
--- NOTE | 2024-03-17 14:17 | MHC.CARE ---
3 day follow up form faxed to [facility]
== END 2024-03-17 14:19 | disposition home or self-care (01) ==
PROVIDERS: Emergency Provider Internal Medicine
DX: F31.9 Bipolar disorder, unspecified (principal); R45.851 Suicidal ideations; R06.02 Shortness of breath; D50.9 Iron deficiency anemia, unspecified; Z87.891 Personal history of nicotine dependence; Z03.818 Encounter for observation for suspected exposure to other biological agents ruled out; R44.0 Auditory hallucinations; F60.3 Borderline personality disorder; E11.9 Type 2 diabetes mellitus without complications; E78.5 Hyperlipidemia, unspecified; K21.9 Gastro-esophageal reflux disease without esophagitis; F41.9 Anxiety disorder, unspecified; Z91.51 Personal history of suicidal behavior; Z91.52 Personal history of nonsuicidal self-harm; F43.12 Post-traumatic stress disorder, chronic; F12.90 Cannabis use, unspecified, uncomplicated; Z79.84 Long term (current) use of oral hypoglycemic drugs; Z79.899 Other long term (current) drug therapy; Z79.02 Long term (current) use of antithrombotics/antiplatelets
CPT/HCPCS: 0241U; 36415; 71045; 80053; 80307; 81001; 85025; 87086; 94640; 99285; S9485

== ENCOUNTER 2024-03-24 20:21 | Emergency (ER) | payer MEDICARE, MEDICAID, SELFPAY ==
--- NOTE | 2024-03-24 | ECG_ITS ---
Test Reason : CHEST PAIN Blood Pressure : / mmHG Vent. Rate : 107 BPM Atrial Rate : 107 BPM P-R Int : 154 ms QRS Dur : 084 ms QT Int : 352 ms P-R-T Axes : 048 019 053 degrees QTc Int : 469 ms Sinus tachycardia Otherwise normal ECG When compared with ECG of 08-MAR-2024 21:53, No significant change was found Referred By: Generic ED Physician Electronically Signed By:MAURI COLE
--- NOTE | ~2024-03-24 | XR_ITS ---
EXAMINATION: XR CHEST CLINICAL INFORMATION: Pain COMPARISON: Previous chest x-ray most recent 03/17/2024 TECHNIQUE: 2 views of the chest were obtained. FINDINGS: Cardiac and mediastinal contours are stable. The lungs are clear. No pleural effusion or pneumothorax. Bony structures are unremarkable. XR/XR chest 2V IMPRESSION: Unremarkable examination.
[2024-03-24 20:23] VITALS: BP 126/63; PULSE 104; O2SAT 98
[2024-03-24 20:37] VITALS: BP 134/98; PULSE 109; RESP 20; TEMP 36.6; O2SAT 96; BMI 42.2
--- NOTE | 2024-03-24 20:42 | ED.CHESTPAIN ---
HPI - Chest Pain General Chief Complaint: Chest Pain Stated Complaint: Pt coming from home with chest pains x 1hr Time Seen by Provider: 03/25/24 00:04 Source: patient Mode of arrival: EMS History of Present Illness ED Provider: Dr Quintero HPI narrative: 48-year-old female who reports that she began having chest pain earlier today, she received aspirin by EMS and now reports feeling better, and endorses that she feels it may be her anxiety. She denies any cough/fever/chills/sore throat or sick contacts and denies any GI or symptoms. Related Data Home Medications ?Medication ?Instructions ?Recorded ?Confirmed fluoxetine 40 mg capsule 80 mg PO DAILY 08/25/23 03/10/24 lorazepam 0.5 mg tablet 0.5 mg PO BID PRN Anxiety 08/31/23 03/10/24 albuterol sulfate 90 mcg/actuation 2 inh inhalation Q4H PRN Shortness 09/17/23 03/10/24 aerosol inhaler (Ventolin HFA) Of Breath Or Wheezing famotidine 10 mg tablet 10 mg PO BID@0630,1630 09/17/23 03/10/24 montelukast 10 mg tablet 10 mg PO BEDTIME 09/17/23 03/10/24 atorvastatin 10 mg tablet 10 mg PO DAILY 10/04/23 03/10/24 benztropine 1 mg tablet 1 mg PO BID 10/04/23 03/10/24 metformin 500 mg tablet 500 mg PO BID 10/04/23 03/10/24 pantoprazole 40 mg tablet,delayed 40 mg PO DAILY@0630 10/04/23 03/10/24 release fluticasone 250 mcg-salmeterol 50 1 ea inhalation BID 11/18/23 03/10/24 mcg/dose blistr powdr for inhalation lisinopril 5 mg tablet 5 mg PO DAILY blood pressure 11/18/23 03/10/24 prazosin 2 mg capsule 4 mg PO BEDTIME 11/18/23 03/10/24 buspirone 10 mg tablet 10 mg PO BID 01/09/24 03/10/24 fluphenazine HCl 5 mg tablet 5 mg PO BID 01/09/24 03/10/24 mirtazapine 15 mg tablet 15 mg PO BEDTIME 01/09/24 03/10/24 Previous Rx's ?Medication ?Instructions ?Recorded haloperidol 5 mg tablet 5 mg PO TID@0900,1530,2100 30 days 11/29/23 #90 tabs lactulose 20 gram/30 mL oral 20 g (30 mL) PO DAILY PRN 11/29/23 solution constipation 30 days #1,200 mL clozapine 25 mg tablet (Clozaril) 75 mg (3 x 25 mg) PO BEDTIME 3 12/23/23 weeks #63 tabs Allergies Allergy/AdvReac Type Severity Reaction Status Date / Time azithromycin [AZITHROMYCIN] Allergy Severe Rash Verified 03/24/24 20:39 Fish Containing Products Allergy Severe Anaphylaxis Verified 03/24/24 20:39 codeine [Codeine] Allergy Intermediate Rash Verified 03/24/24 20:39 Penicillins Allergy Intermediate Rash Verified 03/24/24 20:39 prednisone [Prednisone] Allergy Intermediate Rash Verified 03/24/24 20:39 Sulfa (Sulfonamide Allergy Intermediate Rash Verified 03/24/24 20:39 Antibiotics) [Sulfa (Sulfonamides)] ziprasidone [From Geodon] Allergy Intermediate dysuria, Verified 03/24/24 20:39 rash lithium Allergy Rash Verified 03/24/24 20:39 Review of Systems Review of Systems: Pertinent positives and negatives as stated [facility] Past Medical History Source: nursing notes reviewed Medical History Suicidal ideation MDD (major depressive disorder), recurrent episode, severe Chest pain Acute anxiety COVID-19 Full body hives Major depression Dizziness Suicide attempt UTI (urinary tract infection) Acetaminophen overdose COVID History of attempted suicide History of non-suicidal self-harm Hypomagnesemia Suicide attempt Suicide attempt by acetaminophen overdose Acetaminophen overdose Depression Diabetes type 2, controlled Borderline personality disorder PTSD (post-traumatic stress disorder) Overdose GERD (gastroesophageal reflux disease) Mood disorder Hyperlipidemia Bronchitis Social History Social History Household Members: None Household Members Other:: longterm Housing: Other Housing Other:: [facility] Do you presently have visiting nurse or other home services: No Unable to assess alcohol history related to: Unknown Alcohol intake: former Comment: sitter in room Patient Tobacco Use Status: Former Tobacco user Tobacco use type: Cigarette Cigarette Packs Per Day: 1 Cigarettes Per Day: 20.0 Years Smoked: 22 Smoked in Last 30 Days: Yes e-Cigarette/Vaping Use: Never Used Second Hand Smoke Exposure: No Use of substances other than those prescribed or required for medical reasons: No Substance Use Type: Marijuana Advance Directives: No Do you have a plan to hurt others: No Plan Patient : No service: No Current occupational status: unemployed and disabled Sexual orientation: Straight/Heterosexual Physical Exam Vital Signs: Vital Signs: Last Vital Signs Temp 97.8 F 03/25/24 00:20 Pulse 89 03/25/24 00:20 Resp 13 03/25/24 00:20 BP 145/76 H 03/25/24 00:20 Pulse Ox 94 03/25/24 00:20 O2 Del Method Room Air 03/25/24 00:20 BMI result Body Mass Index 42.2 VITAL SIGNS: Reviewed. GENERAL: Well developed, well nourished, in no acute distress. HEAD: Normocephalic/atraumatic EYES: PERRLA, EOMI EARS: Ext canals without abnormality NOSE: Nares patent bilateral OROPHARYNX: no oral lesions noted, posterior pharynx clear NECK: Supple, no adenopathy LUNGS: Normal breath sounds. No adventitious sounds or accessory muscle use. SpO2<94> CARDIOVASCULAR: Regular rate and rhythm without noted murmurs, no JVD or lower extremity edema. ABDOMEN: Soft, non-tender, non-distended with bowel sounds. MUSCULOSKELETAL: No tenderness, deformities, or effusions noted on gross inspection. EXTREMITIES: No cyanosis, clubbing or edema. SKIN: Inspection of the skin reveals no rashes NEUROLOGIC: Alert and oriented x 4. Strength and sensation to light touch were grossly intact x 4. Course Course Course Narrative: RME performed by Nicki Schreiber PA-C. Patient is a 48 year old assigned female at presenting to the emergency department with chest pain. Patient states she has been more anxious lately and is having chest pain. Detailed physical exam and review of systems are deferred to the aeronautical engineering professor. EKG, labs, imaging, and swabs ordered. Patient placed back in the waiting room pending room availability and results. Medical Decision Making Medical Decision Making MDM Narrative: 48-year-old female with history and clinical presentation, DDX: Anxiety, low clinical suspicion for cardiac etiology and no concern for pneumonia or viral illness. I reviewed all investigations and hematologic indices are negative for leukocytosis and there is a stable normocytic anemia no thrombocytopenia. Chemistry indices are grossly within normal limits, there is no KANNAN/electrolyte or liver enzyme derangement and high sensitivity troponin is undetectable and there are no acute changes on EKG. Urinalysis is negative for UTI or hematuria. I reviewed the chest x-ray and my interpretation is there is no infiltrate or evidence to suggest venous congestion. On re-evaluation patient is chest pain-free, she has no constitutional symptoms or objective findings to suggest pneumonia or viral illness, there are no findings to suggest ACS and suspect patient may have been experiencing an episode of anxiety. She denies any SI HI at this time and is otherwise stable for discharge. Differential Diagnosis Differential Diagnoses: The differential diagnosis associated with the presentation includes Please see the discussion above Admission/Observation Consideration of admission/observation: Escalation of care including admission/observation considered Please see the discussion above Lab Data MDM Lab Attestation statement: I reviewed the patient's lab results. Please see the discussion above 03/24/24 20:53 03/24/24 20:53 Labs: Lab Results 03/24/24 03/25/24 Range/Units 20:53 00:36 WBC 7.1 (4.8-10.8) X10*3/uL RBC 4.24 (4.20-5.50) X10*6/uL Hgb 10.8 L (12.0-16.0) g/dl Hct 35.2 L (37.0-47.0) % MCV 83.0 (80.0-98.0) fL MCH 25.5 L (27.0-33.0) pg MCHC 30.7 L (31.0-35.0) g/dl RDW 25.7 H (11.0-16.0) % Plt Count 312 (160-400) X10*3/uL MPV 9.1 L (9.4-12.3) fL Immature Gran % (Auto) 0.7 H (0.0-0.4) % Neut % (Auto) 64.2 (45-73) % Lymph % (Auto) 21.9 (20-40) % [place] % (Auto) 8.4 (2-11) % Eos % (Auto) 4.2 H (0-4) % Baso % (Auto) 0.6 (0-2) % Lymph # (Auto) 1.6 (1.2-4.9) X10*3/uL [place] # (Auto) 0.6 (0.1-1.2) X10*3/uL Eos # (Auto) 0.3 (0.0-0.4) X10*3/uL Baso # (Auto) 0.0 (0.0-0.2) X10*3/uL Abs Immat Gran (auto) 0.05 H (0.00-0.03) X10*3/uL Absolute Neuts (auto) 4.6 (2.0-8.3) x10*3/uL Absolute Nucleated RBC 0.000 (0.0-0.012) X10*3/uL Nucleated RBC % (auto) 0.0 (0.0-0.2) /100WBC Sodium 143 (135-145) mmol/L Potassium 3.8 (3.3-5.1) mmol/L Chloride 108 (96-108) mmol/L Carbon Dioxide 21 L (22-29) mmol/L Anion Gap 18 (12-20) BUN 13 (9-16) mg/dL Creatinine 0.74 (0.5-1.4) mg/dL Estim Creat Clear Calc 116.0 Estimated GFR > 60 Random Glucose 109 (60-115) mg/dL Calcium 9.7 D (8.4-10.2) mg/dL Total Bilirubin 0.3 (0.0-1.0) mg/dL AST 26 (5-31) U/L ALT 26 (0-31) U/L Alkaline Phosphatase 137 H (39-117) U/L Troponin I High Sens < 2.7 (<3.5-17.0) ng/L Total Protein 7.3 (6.5-8.0) g/dL Albumin 4.5 (3.5-5.0) g/dL Urine Color Yellow Urine Appearance Clear Urine pH 5.5 (5.0-9.0) Ur Specific [place] 1.010 (1.005-1.025) Urine Protein Negative (Neg-Trace) mg/dL Urine Glucose (UA) Negative (Negative) mg/dL Urine Ketones Negative (Negative) mg/dL Urine Blood Negative (Negative) Urine Nitrite Negative (Negative) Ur Leukocyte Esterase Negative (Negative) Independent Interpretation I performed an independent interpretation of an: EKG Interpretation: Sinus tachycardia, HR-107, no STEMI, NM/QRS/QTC is within normal limits. There are no acute changes when compared to previous from February/2024. Radiology Impression Discussion of test interpretation with radiology: I have reviewed the radiologist's reading. Radiologist Impression: Please see the discussion above External Record Review External record reviewed: Outpatient record, Prior outpatient labs and Prior outpatient radiology Chronic Conditions Patient?s care impacted by: Diabetes and Other GERD, depression, borderline personality Critical Care Time Critical Care Time Critical Care Time: Yes Total Critical Care Time: 30 Attestation: I personally attest to this time spent taking care of the patient. Discharge Plan Discharge Clinical Impression: Atypical chest pain, Anxiety Patient Disposition: Xfer Other Instructions: Anxiety (ED) Additional Instructions: 1. Resume all home medications as prescribed. 2. Please follow-up with primary care doctor. Return to the ER for any worsening symptoms. Prescriptions: No Action fluoxetine 40 mg capsule 80 mg PO DAILY lorazepam 0.5 mg tablet 0.5 mg PO BID PRN (Reason: Anxiety) fluticasone propion-salmeterol 250-50 mcg/dose blister with device 1 ea inhalation BID lisinopril 5 mg tablet 5 mg PO DAILY prazosin 2 mg capsule 4 mg PO BEDTIME haloperidol 5 mg Tablet 5 mg PO TID@0900,1530,2100 30 Days Qty: 90 0RF lactulose 20 gram/30 mL Solution 20 g PO DAILY PRN (Reason: constipation) 30 Days Qty: 1200 0RF clozapine [Clozaril] 25 mg tablet 75 mg PO BEDTIME 21 Days Qty: 63 0RF famotidine 10 mg Tablet 10 mg PO BID@0630,1630 albuterol sulfate [Ventolin HFA] 90 mcg/actuation HFA aerosol inhaler 2 inh inhalation Q4H PRN (Reason: Shortness Of Breath Or Wheezing) montelukast 10 mg tablet 10 mg PO BEDTIME metformin 500 mg tablet 500 mg PO BID atorvastatin 10 mg tablet 10 mg PO DAILY pantoprazole 40 mg tablet,delayed release (DR/EC) 40 mg PO DAILY@0630 benztropine 1 mg tablet 1 mg PO BID buspirone [BuSpar] 10 mg Tablet 10 mg PO BID mirtazapine 15 mg Tablet 15 mg PO BEDTIME fluphenazine HCl 5 mg tablet 5 mg PO BID Print Language: Occitan
[2024-03-24 20:58] LABS: MANUAL DIFF FLAG NO
[2024-03-24 21:00] LABS: Basophils Percent Auto 0.6 % (0-2); Eosinophils Absolute Auto 0.3 X10*3/uL (0.0-0.4); Eosinophils Percent Auto 4.2 % (0-4); Hematocrit 35.2 % (37.0-47.0); Hemoglobin 10.8 g/dl (12.0-16.0); Imm Gran Abs Auto 0.05 X10*3/uL (0.00-0.03); Imm Gran Pct Auto 0.7 % (0.0-0.4); Lymphocytes Absolute Auto 1.6 X10*3/uL (1.2-4.9); Lymphocytes Percent Auto 21.9 % (20-40); Mean Corpuscular HGB Conc 30.7 g/dl (31.0-35.0); Mean Corpuscular Hemoglobin 25.5 pg (27.0-33.0); Mean Platelet Volume 9.1 fL (9.4-12.3); Monocytes Absolute Auto 0.6 X10*3/uL (0.1-1.2); Monocytes Percent Auto 8.4 % (2-11); Neutrophils Absolute Auto 4.6 x10*3/uL (2.0-8.3); Neutrophils Percent Auto 64.2 % (45-73); Platelet Count 312 X10*3/uL (160-400); Red Blood Count 4.24 X10*6/uL (4.20-5.50); Red Cell Distribution Width 25.7 % (11.0-16.0); White Blood Count 7.1 X10*3/uL (4.8-10.8)
[2024-03-24 21:14] LABS: Alanine Aminotransferase 26 U/L (0-31); Albumin Level 4.5 g/dL (3.5-5.0); Alkaline Phosphatase 137 U/L (39-117); Anion Gap 18 (12-20); Aspartate Amino Transferase 26 U/L (5-31); Bilirubin Total 0.3 mg/dL (0.0-1.0); Blood Urea Nitrogen 13 mg/dL (9-16); Calcium 9.7 mg/dL (8.4-10.2); Carbon Dioxide 21 mmol/L (22-29); Chloride 108 mmol/L (96-108); Estimated Glomerular Filt Rate > 60; Glucose Random 109 mg/dL (60-115); Potassium 3.8 mmol/L (3.3-5.1); Sodium 143 mmol/L (135-145); Total Protein 7.3 g/dL (6.5-8.0)
[2024-03-24 21:22] LABS: Troponin-I High Sensitivity < 2.7 ng/L (<3.5-17.0)
[2024-03-24 22:53] VITALS: BP 140/83; PULSE 104; RESP 19; TEMP 36.3; O2SAT 95
[2024-03-25 00:20] VITALS: BP 145/76; PULSE 89; RESP 13; TEMP 36.6; O2SAT 94
[2024-03-25 00:42] LABS: Appearance Urine Clear; Color Urine Yellow; Glucose Urine UA Negative (Negative); Leukocyte Esterase Urine Negative (Negative); Nitrite Urine Negative (Negative); PH 5.5 (5.0-9.0); Urine Blood Negative (Negative); Urine Ketones Negative (Negative); Urine Protein Negative (Neg-Trace)
[2024-03-25 00:44] LABS: Bacteria Urine None Seen (None Seen); Hyaline Casts Urine 0-2 /LPF (0-2); RBC Urine 0-2 /HPF (0-2); WBC Urine 0-5 /HPF (0-5)
[2024-03-25 01:08] VITALS: BP 135/77; PULSE 88; RESP 14; TEMP 36.6; O2SAT 96
[2024-03-25 01:15] VITALS: BP 137/74; PULSE 88; RESP 14; TEMP 36.6; O2SAT 98
== END 2024-03-25 01:16 | disposition other institution (70) ==
PROVIDERS: Physician Assistant Medical; Emergency Provider Student in an Organized Health Care Education/Training Program
DX: R07.89 Other chest pain (principal); F41.9 Anxiety disorder, unspecified; E11.9 Type 2 diabetes mellitus without complications
CPT/HCPCS: 36415; 71046; 80053; 81001; 84484; 85025; 93005; 99283; 99284

== ENCOUNTER → 2024-03-24 20:27 | Outpatient (BNV) | payer MEDICARE, MEDICAID, SELFPAY | PROVIDERS: Emergency Provider Student in an Organized Health Care Education/Training Program; Visit Provider Internal Medicine | DX: R07.9 Chest pain, unspecified (principal) | CPT/HCPCS: 93010 ==

== ENCOUNTER 2024-03-27 13:44 | Outpatient (REF) | payer MEDICARE, MEDICAID, SELFPAY ==
[2024-03-27 13:58] LABS: MANUAL DIFF FLAG NO
[2024-03-27 14:57] LABS: Basophils Percent Auto 0.4 % (0-2); Eosinophils Absolute Auto 0.2 X10*3/uL (0.0-0.4); Eosinophils Percent Auto 2.7 % (0-4); Hemoglobin 10.8 g/dl (12.0-16.0); Imm Gran Abs Auto 0.04 X10*3/uL (0.00-0.03); Imm Gran Pct Auto 0.5 % (0.0-0.4); Lymphocytes Absolute Auto 1.4 X10*3/uL (1.2-4.9); Mean Corpuscular Hemoglobin 25.7 pg (27.0-33.0); Mean Corpuscular Volume 85.5 fL (80.0-98.0); Monocytes Absolute Auto 0.6 X10*3/uL (0.1-1.2); Monocytes Percent Auto 7.6 % (2-11); Neutrophils Absolute Auto 5.8 x10*3/uL (2.0-8.3); Neutrophils Percent Auto 71.8 % (45-73); Platelet Count 311 X10*3/uL (160-400); Red Blood Count 4.21 X10*6/uL (4.20-5.50); Red Cell Distribution Width 25.7 % (11.0-16.0)
== END 2024-03-27 13:45 | disposition home or self-care (01) ==
LOC: HO.LABR 13:44
PROVIDERS: Visit Provider Psychiatry & Neurology Psychiatry
DX: Z79.899 Other long term (current) drug therapy (principal)
CPT/HCPCS: 36415; 85025

== ENCOUNTER 2024-03-28 23:08 | Emergency (ER) | payer MEDICARE, MEDICAID, SELFPAY ==
--- NOTE | ~2024-03-28 | XR_ITS ---
EXAMINATION: XR KNEE, RIGHT CLINICAL INFORMATION: Injury. Pain. COMPARISON: None available. TECHNIQUE: Four views of the right knee. FINDINGS: No fracture or joint effusion. Alignment is anatomic. Joint spaces are maintained. No abnormal soft tissue calcification. XR/XR knee RT 3V IMPRESSION: No significant abnormality identified.
--- NOTE | ~2024-03-28 | XR_ITS ---
EXAMINATION: XR FOOT, RIGHT CLINICAL INFORMATION: Injury. Pain. COMPARISON: None available. TECHNIQUE: AP, lateral, and oblique views of the right foot. FINDINGS: The bones and soft tissues are normal. No fracture. Alignment is anatomic. An os navicularis is noted. Joint spaces are maintained. XR/XR foot RT min 3V IMPRESSION: No acute osseous abnormality.
--- NOTE | ~2024-03-28 | XR_ITS ---
EXAMINATION: XR HIP, RIGHT CLINICAL INFORMATION: Pain. COMPARISON: None available. TECHNIQUE: Two views of the right hip. FINDINGS: No fracture. Alignment is anatomic. Hip joint space is maintained. Soft tissues are unremarkable. XR/XR hip RT min 2V IMPRESSION: No significant abnormality identified.
--- NOTE | ~2024-03-28 | XR_ITS ---
EXAMINATION: XR ANKLE, RIGHT CLINICAL INFORMATION: Pain. COMPARISON: None available. TECHNIQUE: AP, lateral, and mortise views of the right ankle. FINDINGS: The bone mineralization is normal. The joint spaces are maintained. No fracture is seen. There is mild soft tissue swelling about the ankle. XR/XR ankle RT min 3V IMPRESSION: Mild soft tissue swelling about the ankle. No acute osseous abnormality.
[2024-03-28 23:13] VITALS: BP 149/63; PULSE 115; RESP 18; TEMP 37.1; O2SAT 98; BMI 43.1
--- NOTE | 2024-03-28 23:26 | ED_ITS ---
HPI - Extremity Injury (Lower) General Chief Complaint: Extremity Injury, Lower Stated Complaint: right knee and ankle pain Time Seen by Provider: 03/28/24 23:16 Source: patient, EMS, RN notes reviewed and old records reviewed Mode of arrival: EMS Limitations: no limitations History of Present Illness ED Provider: GERMAINE DAVENPORT PA-C HPI Narrative: 48 year old female with pmhx significant for anemia, emphysema, asthma, COPD, longstanding cigarette smoker, mental health disease presents to the ED today via EMS for evaluation of right ankle and right knee pain after twisting her leg a few hours prior to arrival. Patient reports she was attempting to stand up from a seated position when she moved her right lower extremity the wrong way, causing her to twist her right ankle and right knee. Reports immediately pain to the anterior knee and lateral aspect of right ankle. She has been able to ambulate and bear weight on the RLE without assistance. Denies taking any OTC medications [employer]. Admits to icing the knee with minimal relief. Denies numbness, tingling, weakness of the LEs. Denies fever, chills. Denies recent injury or trauma to the LE. Denies SI/HI. Denies AH/VH/TH. Related Data Home Medications ?Medication ?Instructions ?Recorded ?Confirmed fluoxetine 40 mg capsule 80 mg PO DAILY 08/25/23 03/10/24 lorazepam 0.5 mg tablet 0.5 mg PO BID PRN Anxiety 08/31/23 03/10/24 albuterol sulfate 90 mcg/actuation 2 inh inhalation Q4H PRN Shortness 09/17/23 03/10/24 aerosol inhaler (Ventolin HFA) Of Breath Or Wheezing famotidine 10 mg tablet 10 mg PO BID@0630,1630 09/17/23 03/10/24 montelukast 10 mg tablet 10 mg PO BEDTIME 09/17/23 03/10/24 atorvastatin 10 mg tablet 10 mg PO DAILY 10/04/23 03/10/24 benztropine 1 mg tablet 1 mg PO BID 10/04/23 03/10/24 metformin 500 mg tablet 500 mg PO BID 10/04/23 03/10/24 pantoprazole 40 mg tablet,delayed 40 mg PO DAILY@0630 10/04/23 03/10/24 release fluticasone 250 mcg-salmeterol 50 1 ea inhalation BID 11/18/23 03/10/24 mcg/dose blistr powdr for inhalation lisinopril 5 mg tablet 5 mg PO DAILY blood pressure 11/18/23 03/10/24 prazosin 2 mg capsule 4 mg PO BEDTIME 11/18/23 03/10/24 buspirone 10 mg tablet 10 mg PO BID 01/09/24 03/10/24 fluphenazine HCl 5 mg tablet 5 mg PO BID 01/09/24 03/10/24 mirtazapine 15 mg tablet 15 mg PO BEDTIME 01/09/24 03/10/24 Previous Rx's ?Medication ?Instructions ?Recorded haloperidol 5 mg tablet 5 mg PO TID@0900,1530,2100 30 days 11/29/23 #90 tabs lactulose 20 gram/30 mL oral 20 g (30 mL) PO DAILY PRN 11/29/23 solution constipation 30 days #1,200 mL clozapine 25 mg tablet (Clozaril) 75 mg (3 x 25 mg) PO BEDTIME 3 12/23/23 weeks #63 tabs Allergies Allergy/AdvReac Type Severity Reaction Status Date / Time azithromycin [AZITHROMYCIN] Allergy Severe Rash Verified 03/28/24 23:15 Fish Containing Products Allergy Severe Anaphylaxis Verified 03/28/24 23:15 codeine [Codeine] Allergy Intermediate Rash Verified 03/28/24 23:15 Penicillins Allergy Intermediate Rash Verified 03/28/24 23:15 prednisone [Prednisone] Allergy Intermediate Rash Verified 03/28/24 23:15 Sulfa (Sulfonamide Allergy Intermediate Rash Verified 03/28/24 23:15 Antibiotics) [Sulfa (Sulfonamides)] ziprasidone [From Geodon] Allergy Intermediate dysuria, Verified 03/28/24 23:15 rash lithium Allergy Rash Verified 03/28/24 23:15 Review of Systems Review of Systems: Constitutional: No fever, chills, fatigue, night sweats, weight changes ENT/Mouth: No ear pain, hearing loss, nasal congestion, sinus pain, rhinorrhea, sore throat Eyes: No eye pain, swelling, redness, vision changes, discharge Cardio: No chest pain, palpitations, TEAGUE, orthopnea, peripheral edema Pulm: No SOB, cough, sputum, wheezing, dyspnea, hemoptysis GI: No nausea, vomiting, hematemesis, abdominal pain, diarrhea, constipation, hematochezia, melena : No irregular bleeding, dysuria, frequency, urgency, hesitancy, hematuria, flank pain, urinary flow changes, urinary incontinence or retention MSK: No back pain, neck pain, joint pain, myalgias, +right knee and right ankle pain Skin: No lesions, rashes Neuro: No weakness, numbness, paresthesias, LOC, dizziness, headache Psych: No anxiety/panic, depression, SI/HI, AH/VH All other systems reviewed and are negative. [facility] Past Medical History Attestation statement: The following information was validated with the patient. Source: old records reviewed and nursing notes reviewed Medical History Suicidal ideation MDD (major depressive disorder), recurrent episode, severe Chest pain Acute anxiety COVID-19 Full body hives Major depression Dizziness Suicide attempt UTI (urinary tract infection) Acetaminophen overdose COVID History of attempted suicide History of non-suicidal self-harm Hypomagnesemia Suicide attempt Suicide attempt by acetaminophen overdose Acetaminophen overdose Depression Diabetes type 2, controlled Borderline personality disorder PTSD (post-traumatic stress disorder) Overdose GERD (gastroesophageal reflux disease) Mood disorder Hyperlipidemia Bronchitis Social History Social History Household Members: None Household Members Other:: longterm Housing: Other Housing Other:: Shelter Do you presently have visiting nurse or other home services: No Unable to assess alcohol history related to: Unknown Alcohol intake: former Comment: sitter in room Patient Tobacco Use Status: Former Tobacco user Tobacco use type: Cigarette Cigarette Packs Per Day: 1 Cigarettes Per Day: 20.0 Years Smoked: 22 e-Cigarette/Vaping Use: Never Used Second Hand Smoke Exposure: No Substance Use Type: Marijuana Advance Directives: No Advance Directives Information Provided: Yes Do you have a plan to hurt others: No Plan service: No Current occupational status: unemployed and disabled Sexual orientation: Straight/Heterosexual Physical Exam Vital Signs: Vital Signs: Last Vital Signs Temp 98.7 F 03/28/24 23:13 Pulse 115 H 03/28/24 23:13 Resp 18 03/28/24 23:13 BP 149/63 H 03/28/24 23:13 Pulse Ox 98 03/28/24 23:13 O2 Del Method Room Air 03/28/24 23:13 BMI result Body Mass Index 43.1 Vital signs stable Const: General: cooperative, healthy appearing, comfortable and no acute distress Orientation/consciousness: patient oriented x3 Limitations: no limitations HEENT: Head: Yes normal to inspection, Yes No palpable skull fracture present, Yes normocephalic and Yes atraumatic Eyes: General: appearance normal, both eyes and all related structures Conjunctivae: conjunctivae normal Sclerae: sclerae normal Pupils: Equal, round and reactive pupils present Neck: Neck: Yes normal visual inspection and Yes full ROM Resp: Effort & Inspection: normal respiratory effort and able to speak in complete sentences Auscultation: clear to auscultation bilaterally Cardio: Rate: regular rate Rhythm: regular rhythm Skin: General skin exam: no rashes or lesions noted Neuro: General: patient oriented x3, gait normal and moves all extremities Cranial nerves: Yes Equal, round and reactive pupils present Extrem: Other: + right knee and ankle without noted bia nt effusion, erythema or overlying cellulitis. no overlying warmth. no palpable deformities. full ROM intact to hip, knee, and ankle of RLE. strength 5/5 intact throughout. sensation intact to light touch. 2+ popliteal, dp/pt pulses. cap refill <2 seconds. no calf tenderness. no pitting edema. General: Yes normal to inspection Course Course Course Narrative: 0130-- X-ray of right foot/ankle/knee/hip unremarkable. No acute fracture or dislocation. Likely right knee/ankle sprain. Discussed all work up results with patient. She is ambulating with steady gait to commode. ALBERTO wraps applied to right ankle and knee. Educated on RICE treatment. She has been medicated with toradol and tylenol. Patient has remained stable throughout ED visit today. Discussed worrisome signs and symptoms and when to return to the ED. All questions answered at this time. Patient is agreeable with disposition and stable for discharge. Medications Administered Discontinued Medications Generic Name Dose Route Start Last Admin Trade Name Freq PRN Reason Stop Dose Admin Ketorolac Tromethamine 30 mg 03/28/24 23:32 03/28/24 23:49 Ketorolac Tromethamine 30 Mg/Ml Vial IM 03/28/24 23:33 30 mg ONCE ONE Administration Medical Decision Making Medical Decision Making MDM Narrative: 48 year old female with pmhx significant for anemia, emphysema, asthma, COPD, longstanding cigarette smoker, mental health disease presents to the ED today via EMS for evaluation of right ankle and right knee pain after twisting her leg a few hours prior to arrival. Patient is nontoxic-appearing and in no acute distress. On exam, right knee and ankle without noted joint effusion, erythema or overlying cellulitis. no overlying warmth. no palpable deformities. full ROM intact to hip, knee, and ankle of RLE. strength 5/5 intact throughout. sensation intact to light touch. 2+ popliteal, dp/pt pulses. cap refill <2 seconds. no calf tenderness. no pitting edema.Ambulating with steady gait. Differential diagnosis includes msk sprain/ strain, contusion. Lower suspicion for fracture, dislocation. Unlikely NV compromise, threat to limb, compartment syndrome, lyme arthritis, septic joint, gout, pseudogout. Plan for imaging and pain control. Differential Diagnosis Differential Diagnoses: The differential diagnosis associated with the presentation includes as above. Admission/Observation Not indicated. Independent Interpretation I performed an independent interpretation of an: Plain X-Ray Interpretation: XR right knee without fracture, agree with radiologist's interpretation. XR right ankle/foot without acute fracture, agree with radiologist's interpretation. Radiology Impression Discussion of test interpretation with radiology: I have reviewed the radiologist's reading. Radiologist Impression: EXAMINATION: XR KNEE, RIGHT CLINICAL INFORMATION: Injury. Pain. COMPARISON: None available. TECHNIQUE: Four views of the right knee. FINDINGS: No fracture or joint effusion. Alignment is anatomic. Joint spaces are maintained. No abnormal soft tissue calcification. XR/XR knee RT 3V IMPRESSION: No significant abnormality identified. - -------- EXAMINATION: XR FOOT, RIGHT CLINICAL INFORMATION: Injury. Pain. COMPARISON: None available. TECHNIQUE: AP, lateral, and oblique views of the right foot. FINDINGS: The bones and soft tissues are normal. No fracture. Alignment is anatomic. An os navicularis is noted. Joint spaces are maintained. XR/XR foot RT min 3V IMPRESSION: No acute osseous abnormality. EXAMINATION: XR HIP, RIGHT CLINICAL INFORMATION: Pain. COMPARISON: None available. TECHNIQUE: Two views of the right hip. FINDINGS: No fracture. Alignment is anatomic. Hip joint space is maintained. Soft tissues are unremarkable. XR/XR hip RT min 2V IMPRESSION: No significant abnormality identified. EXAMINATION: XR ANKLE, RIGHT CLINICAL INFORMATION: Pain. COMPARISON: None available. TECHNIQUE: AP, lateral, and mortise views of the right ankle. FINDINGS: The bone mineralization is normal. The joint spaces are maintained. No fracture is seen. There is mild soft tissue swelling about the ankle. XR/XR ankle RT min 3V IMPRESSION: Mild soft tissue swelling about the ankle. No acute osseous abnormality. Independent Historian Clinical information obtained from an independent historian. History obtained from or confirmed by: EMS External Record Review External record reviewed: Inpatient record, Office record, Outpatient record, Prior outpatient labs, Prior outpatient radiology, Primary care record and Outside ED record Prescription Management I considered prescription management with: Pain Medication Social Determinants Patient?s care significantly limited by Social Determinants of Health including: Other Social Determinant of Health Procedures Orthopedic Splinting/Casting Injury #1: Side: right Lower Extremity Injury Location: knee Lower Extremity Immobilizer: Alberto wrap Injury #2: Side: right Lower Extremity Injury Location: ankle Lower Extremity Immobilizer: Alberto wrap Critical Care Time Critical Care Time Critical Care Time: No Discharge Plan Discharge Clinical Impression: Right ankle sprain, Right knee sprain Patient Disposition: Home, Self-Care Instructions: Ankle Sprain (ED), Knee Sprain (ED), How to Use an Elastic Bandage (ED), R.I.C.E. Treatment (ED) Additional Instructions: Your xrays today do not show fracture. You likely have a knee and ankle sprain. You were provided with alberto wrap for compression today. Utilize RICE therapy - REST, ICE, COMPRESS, ELEVATE THE LEG You may take tylenol and/or motrin at home for the pain. If pain persists, please follow up with your PCP. Return with new or worsening symptoms. In the case of an emergency call 911. Prescriptions: No Action fluoxetine 40 mg capsule 80 mg PO DAILY lorazepam 0.5 mg tablet 0.5 mg PO BID PRN (Reason: Anxiety) fluticasone propion-salmeterol 250-50 mcg/dose blister with device 1 ea inhalation BID lisinopril 5 mg tablet 5 mg PO DAILY prazosin 2 mg capsule 4 mg PO BEDTIME haloperidol 5 mg Tablet 5 mg PO TID@0900,1530,2100 30 Days Qty: 90 0RF lactulose 20 gram/30 mL Solution 20 g PO DAILY PRN (Reason: constipation) 30 Days Qty: 1200 0RF clozapine [Clozaril] 25 mg tablet 75 mg PO BEDTIME 21 Days Qty: 63 0RF famotidine 10 mg Tablet 10 mg PO BID@0630,1630 albuterol sulfate [Ventolin HFA] 90 mcg/actuation HFA aerosol inhaler 2 inh inhalation Q4H PRN (Reason: Shortness Of Breath Or Wheezing) montelukast 10 mg tablet 10 mg PO BEDTIME metformin 500 mg tablet 500 mg PO BID atorvastatin 10 mg tablet 10 mg PO DAILY pantoprazole 40 mg tablet,delayed release (DR/EC) 40 mg PO DAILY@0630 benztropine 1 mg tablet 1 mg PO BID buspirone [BuSpar] 10 mg Tablet 10 mg PO BID mirtazapine 15 mg Tablet 15 mg PO BEDTIME fluphenazine HCl 5 mg tablet 5 mg PO BID Print Language: Welsh
[2024-03-28] MEDS: Ketorolac Tromethamine 30 MG/ML VIAL IM (23:49)
[2024-03-29 02:00] VITALS: RESP 16
[2024-03-29] MEDS: Acetaminophen 325 MG TABLET 975 MG PO (03:55)
[2024-03-29 06:00] VITALS: RESP 18
[2024-03-29 08:54] VITALS: BP 135/83; PULSE 93; RESP 16; TEMP 36.6; O2SAT 98
== END 2024-03-29 08:55 | disposition home or self-care (01) ==
PROVIDERS: Emergency Provider Internal Medicine
DX: S93.401A Sprain of unspecified ligament of right ankle, initial encounter (principal); S83.91XA Sprain of unspecified site of right knee, initial encounter; M25.551 Pain in right hip; M25.571 Pain in right ankle and joints of right foot; M25.561 Pain in right knee; X50.1XXA Overexertion from prolonged static or awkward postures, initial encounter; Y93.9 Activity, unspecified; Y92.9 Unspecified place or not applicable; Y99.8 Other external cause status
CPT/HCPCS: 29505; 73502; 73562; 73610; 73630; 96372; 99284; J1885

== ENCOUNTER 2024-04-04 19:57 | Emergency (ER) | payer MEDICARE, MEDICAID, SELFPAY ==
--- NOTE | 2024-04-04 | ECG_ITS ---
Test Reason : CP Blood Pressure : / mmHG Vent. Rate : 108 BPM Atrial Rate : 108 BPM P-R Int : 156 ms QRS Dur : 082 ms QT Int : 350 ms P-R-T Axes : 043 019 050 degrees QTc Int : 469 ms Sinus tachycardia Otherwise normal ECG When compared with ECG of 24-MAR-2024 20:27, No significant change was found Referred By: Generic ED Physician Electronically Signed By:Fabricio Kay
[2024-04-04 20:13] VITALS: BP 99/82; PULSE 105; RESP 21; TEMP 36.9; O2SAT 94
[2024-04-04 20:18] VITALS: BP 99/82; PULSE 94; RESP 21; TEMP 36.9; O2SAT 94; BMI 42.4
[2024-04-04 20:24] VITALS: BP 118/78; PULSE 106; O2SAT 96
[2024-04-04 20:26] LABS: MANUAL DIFF FLAG NO
[2024-04-04 20:27] LABS: Basophils Percent Auto 0.5 % (0-2); Eosinophils Absolute Auto 0.3 X10*3/uL (0.0-0.4); Eosinophils Percent Auto 3.4 % (0-4); Hemoglobin 11.4 g/dl (12.0-16.0); Imm Gran Abs Auto 0.03 X10*3/uL (0.00-0.03); Imm Gran Pct Auto 0.4 % (0.0-0.4); Lymphocytes Absolute Auto 1.8 X10*3/uL (1.2-4.9); Lymphocytes Percent Auto 23.4 % (20-40); Mean Corpuscular HGB Conc 31.7 g/dl (31.0-35.0); Mean Corpuscular Volume 85.3 fL (80.0-98.0); Mean Platelet Volume 9.3 fL (9.4-12.3); Monocytes Absolute Auto 0.6 X10*3/uL (0.1-1.2); Neutrophils Absolute Auto 4.9 x10*3/uL (2.0-8.3); Neutrophils Percent Auto 64.3 % (45-73); Platelet Count 294 X10*3/uL (160-400); Red Blood Count 4.22 X10*6/uL (4.20-5.50); White Blood Count 7.6 X10*3/uL (4.8-10.8)
[2024-04-04 20:43] LABS: Alanine Aminotransferase 24 U/L (0-31); Albumin Level 4.5 g/dL (3.5-5.0); Alkaline Phosphatase 130 U/L (39-117); Anion Gap 16 (12-20); Aspartate Amino Transferase 21 U/L (5-31); Bilirubin Total 0.2 mg/dL (0.0-1.0); Blood Urea Nitrogen 9 mg/dL (9-16); Calcium 9.5 mg/dL (8.4-10.2); Carbon Dioxide 22 mmol/L (22-29); Chloride 107 mmol/L (96-108); Creatinine Clr Calc Pharmacy 119.6; Estimated Glomerular Filt Rate > 60; Glucose Random 116 mg/dL (60-115); Potassium 3.5 mmol/L (3.3-5.1); Sodium 141 mmol/L (135-145); Total Protein 7.4 g/dL (6.5-8.0)
--- NOTE | 2024-04-04 20:43 | PC.NURSE ---
Pt reports improved chest pain and believes she is having an anxiety episode. Denies SI/HI at this time. Endorses AH. Pt expresses desire to speak with the care team. Reports next appt with therapist is on Sunday. Labs results are pending. Monitoring is ongoing.
[2024-04-04 20:51] LABS: Troponin-I High Sensitivity < 2.7 ng/L (<3.5-17.0)
--- NOTE | 2024-04-04 22:05 | ED.CHESTPAIN ---
HPI - Chest Pain General Chief Complaint: Chest Pain Stated Complaint: From retirement, chest pain x40 mins Time Seen by Provider: 04/04/24 22:05 History of Present Illness ED Provider: Paula KIRBY narrative: The patient is a 48-year-old female who comes to the emergency room frequently primarily for psychiatric complaints. She lives at a retirement. She says that she developed chest pain earlier today that she now thinks might have been a panic attack. She says that she just moved into a new retirement. She has been living in her previous retirement for 9 years. She says that she was looking forward to the move. She took a lorazepam before coming to the hospital. While waiting to be seen her symptoms have resolved and she now thinks it was a panic attack. She told me that she thinks she should speak with the care team because she is hearing voices and seeing her father. However she also said that she believes that if she speaks with the care team she might get a taxi ride home. Related Data Home Medications ?Medication ?Instructions ?Recorded ?Confirmed fluoxetine 40 mg capsule 80 mg PO DAILY 08/25/23 03/10/24 lorazepam 0.5 mg tablet 0.5 mg PO BID PRN Anxiety 08/31/23 03/10/24 albuterol sulfate 90 mcg/actuation 2 inh inhalation Q4H PRN Shortness 09/17/23 03/10/24 aerosol inhaler (Ventolin HFA) Of Breath Or Wheezing famotidine 10 mg tablet 10 mg PO BID@0630,1630 09/17/23 03/10/24 montelukast 10 mg tablet 10 mg PO BEDTIME 09/17/23 03/10/24 atorvastatin 10 mg tablet 10 mg PO DAILY 10/04/23 03/10/24 benztropine 1 mg tablet 1 mg PO BID 10/04/23 03/10/24 metformin 500 mg tablet 500 mg PO BID 10/04/23 03/10/24 pantoprazole 40 mg tablet,delayed 40 mg PO DAILY@0630 10/04/23 03/10/24 release fluticasone 250 mcg-salmeterol 50 1 ea inhalation BID 11/18/23 03/10/24 mcg/dose blistr powdr for inhalation lisinopril 5 mg tablet 5 mg PO DAILY blood pressure 11/18/23 03/10/24 prazosin 2 mg capsule 4 mg PO BEDTIME 11/18/23 03/10/24 buspirone 10 mg tablet 10 mg PO BID 01/09/24 03/10/24 fluphenazine HCl 5 mg tablet 5 mg PO BID 01/09/24 03/10/24 mirtazapine 15 mg tablet 15 mg PO BEDTIME 01/09/24 03/10/24 Previous Rx's ?Medication ?Instructions ?Recorded haloperidol 5 mg tablet 5 mg PO TID@0900,1530,2100 30 days 11/29/23 #90 tabs lactulose 20 gram/30 mL oral 20 g (30 mL) PO DAILY PRN 11/29/23 solution constipation 30 days #1,200 mL clozapine 25 mg tablet (Clozaril) 75 mg (3 x 25 mg) PO BEDTIME 3 12/23/23 weeks #63 tabs acetaminophen 325 mg tablet 325 mg PO QID PRN pain #5 tabs 03/29/24 (Tylenol) Allergies Allergy/AdvReac Type Severity Reaction Status Date / Time azithromycin [AZITHROMYCIN] Allergy Severe Rash Verified 04/04/24 20:20 Fish Containing Products Allergy Severe Anaphylaxis Verified 04/04/24 20:20 codeine [Codeine] Allergy Intermediate Rash Verified 04/04/24 20:20 Penicillins Allergy Intermediate Rash Verified 04/04/24 20:20 prednisone [Prednisone] Allergy Intermediate Rash Verified 04/04/24 20:20 Sulfa (Sulfonamide Allergy Intermediate Rash Verified 04/04/24 20:20 Antibiotics) [Sulfa (Sulfonamides)] ziprasidone [From Geodon] Allergy Intermediate dysuria, Verified 04/04/24 20:20 rash lithium Allergy Rash Verified 04/04/24 20:20 Review of Systems Review of Systems: Yes all other systems are reviewed and are negative PMFSH Past Medical History Medical History Suicidal ideation MDD (major depressive disorder), recurrent episode, severe Chest pain Acute anxiety COVID-19 Full body hives Major depression Dizziness Suicide attempt UTI (urinary tract infection) Acetaminophen overdose COVID History of attempted suicide History of non-suicidal self-harm Hypomagnesemia Suicide attempt Suicide attempt by acetaminophen overdose Acetaminophen overdose Depression Diabetes type 2, controlled Borderline personality disorder PTSD (post-traumatic stress disorder) Overdose GERD (gastroesophageal reflux disease) Mood disorder Hyperlipidemia Bronchitis Social History Social History Household Members: None Household Members Other:: retirement Housing: Other Housing Other:: Retirement Do you presently have visiting nurse or other home services: No Unable to assess alcohol history related to: Unknown Alcohol intake: former Comment: sitter in room Patient Tobacco Use Status: Former Tobacco user Tobacco use type: Cigarette Cigarette Packs Per Day: 1 Cigarettes Per Day: 20.0 Years Smoked: 22 Smoked in Last 30 Days: Yes e-Cigarette/Vaping Use: Never Used Second Hand Smoke Exposure: No Substance Use Type: Marijuana Advance Directives: No Advance Directives Information Provided: No Do you have a plan to hurt others: No Plan Patient : No service: No Current occupational status: unemployed and disabled Sexual orientation: Straight/Heterosexual Physical Exam Vital Signs: Vital Signs: Last Vital Signs Temp 98.4 F 04/04/24 20:18 Pulse 94 04/04/24 20:18 Resp 21 H 04/04/24 20:18 BP 99/82 04/04/24 20:18 Pulse Ox 94 04/04/24 20:18 O2 Del Method Room Air 04/04/24 20:18 BMI result Body Mass Index 42.4 Const: Other: The patient is 48-year-old who looks quite chronically ill but is awake and alert and in no distress. HEENT: Other: Face symmetrical. Mucous membranes moist. Eyes: Other: Pupils are round equal, conjunctivae clear Neck: Other: Moving her neck easily Resp: Effort & Inspection: normal respiratory effort Auscultation: clear to auscultation bilaterally Cardio: Rate: regular rate Rhythm: regular rhythm Heart sounds: S1 normal heart sound present and S2 normal heart sound present GI: Other: Abdomen is soft and nontender Skin: Other: Skin is dry and unremarkable Neuro: Other: The patient is awake and alert. Face is symmetrical. Speech is clear. Moving extremities symmetrically. Grossly neurologically intact. Extrem: Other: The patient has a lot of scars on the arms from previous self-inflicted wounds. No pitting edema. Psych: Other: The patient has no suicidality or homicidality. The patient says she is having hallucinations but she also says that she is saying this primarily so she should see the care team. Medical Decision Making Medical Decision Making MDM Narrative: The patient is a 48-year-old woman with frequent ER visits who presents complaining of chest pain that has resolved. Her EKGs unremarkable. Her troponin is undetectable. Her symptoms have resolved. She now attributes her chest pain to anxiety. She also seemed to exhibit secondary gain requesting to speak with the care team so that she could get a taxi ride back to her retirement. She will be discharged to the waiting room. Lab Data 04/04/24 20:22 04/04/24 20:22 Labs: Lab Results 04/04/24 Range/Units 20:22 WBC 7.6 (4.8-10.8) X10*3/uL RBC 4.22 (4.20-5.50) X10*6/uL Hgb 11.4 L (12.0-16.0) g/dl Hct 36.0 L (37.0-47.0) % MCV 85.3 (80.0-98.0) fL MCH 27.0 (27.0-33.0) pg MCHC 31.7 (31.0-35.0) g/dl RDW TNP Plt Count 294 (160-400) X10*3/uL MPV 9.3 L (9.4-12.3) fL Immature Gran % (Auto) 0.4 (0.0-0.4) % Neut % (Auto) 64.3 (45-73) % Lymph % (Auto) 23.4 (20-40) % [place] % (Auto) 8.0 (2-11) % Eos % (Auto) 3.4 (0-4) % Baso % (Auto) 0.5 (0-2) % Lymph # (Auto) 1.8 (1.2-4.9) X10*3/uL [place] # (Auto) 0.6 (0.1-1.2) X10*3/uL Eos # (Auto) 0.3 (0.0-0.4) X10*3/uL Baso # (Auto) 0.0 (0.0-0.2) X10*3/uL Abs Immat Gran (auto) 0.03 (0.00-0.03) X10*3/uL Absolute Neuts (auto) 4.9 (2.0-8.3) x10*3/uL Absolute Nucleated RBC 0.000 (0.0-0.012) X10*3/uL Nucleated RBC % (auto) 0.0 (0.0-0.2) /100WBC Sodium 141 (135-145) mmol/L Potassium 3.5 (3.3-5.1) mmol/L Chloride 107 (96-108) mmol/L Carbon Dioxide 22 (22-29) mmol/L Anion Gap 16 (12-20) BUN 9 (9-16) mg/dL Creatinine 0.72 (0.5-1.4) mg/dL Estim Creat Clear Calc 119.6 Estimated GFR > 60 Random Glucose 116 H (60-115) mg/dL Calcium 9.5 (8.4-10.2) mg/dL Total Bilirubin 0.2 (0.0-1.0) mg/dL AST 21 (5-31) U/L ALT 24 (0-31) U/L Alkaline Phosphatase 130 H (39-117) U/L Troponin I High Sens < 2.7 (<3.5-17.0) ng/L Total Protein 7.4 (6.5-8.0) g/dL Albumin 4.5 (3.5-5.0) g/dL Discharge Plan Discharge Clinical Impression: Chest pain, Anxiety Patient Disposition: Home, Self-Care Additional Instructions: Your testing today in the emergency room is very reassuring. There is no sign of a heart attack. Please continue your regular medications. Please follow up with your regular doctor. Return to the emergency room if worse. Prescriptions: No Action fluoxetine 40 mg capsule 80 mg PO DAILY lorazepam 0.5 mg tablet 0.5 mg PO BID PRN (Reason: Anxiety) fluticasone propion-salmeterol 250-50 mcg/dose blister with device 1 ea inhalation BID lisinopril 5 mg tablet 5 mg PO DAILY prazosin 2 mg capsule 4 mg PO BEDTIME haloperidol 5 mg Tablet 5 mg PO TID@0900,1530,2100 30 Days Qty: 90 0RF lactulose 20 gram/30 mL Solution 20 g PO DAILY PRN (Reason: constipation) 30 Days Qty: 1200 0RF clozapine [Clozaril] 25 mg tablet 75 mg PO BEDTIME 21 Days Qty: 63 0RF acetaminophen [Tylenol] 325 mg tablet 325 mg PO QID PRN (Reason: pain) Qty: 5 0RF famotidine 10 mg Tablet 10 mg PO BID@0630,1630 albuterol sulfate [Ventolin HFA] 90 mcg/actuation HFA aerosol inhaler 2 inh inhalation Q4H PRN (Reason: Shortness Of Breath Or Wheezing) montelukast 10 mg tablet 10 mg PO BEDTIME metformin 500 mg tablet 500 mg PO BID atorvastatin 10 mg tablet 10 mg PO DAILY pantoprazole 40 mg tablet,delayed release (DR/EC) 40 mg PO DAILY@0630 benztropine 1 mg tablet 1 mg PO BID buspirone [BuSpar] 10 mg Tablet 10 mg PO BID mirtazapine 15 mg Tablet 15 mg PO BEDTIME fluphenazine HCl 5 mg tablet 5 mg PO BID Referrals: Maribel Marquez [facility]ENT [Nurse Practitioner] - (chest pain) Print Language: Slovak
[2024-04-04 22:19] VITALS: BP 132/94; PULSE 101; RESP 16; TEMP 36.7; O2SAT 98
[2024-04-04 22:20] VITALS: BP 132/94; PULSE 101; RESP 16; TEMP 36.7; O2SAT 98
== END 2024-04-04 22:20 | disposition home or self-care (01) ==
PROVIDERS: Emergency Provider Emergency Medicine
DX: R07.89 Other chest pain (principal); F41.1 Generalized anxiety disorder; F43.0 Acute stress reaction; Z79.899 Other long term (current) drug therapy; Z87.891 Personal history of nicotine dependence
CPT/HCPCS: 36415; 80053; 84484; 85025; 93005; 99283; 99285

== ENCOUNTER → 2024-04-04 20:00 | Outpatient (BNV) | payer MEDICARE, MEDICAID, SELFPAY | PROVIDERS: Emergency Provider Emergency Medicine; Visit Provider Internal Medicine Cardiovascular Disease | DX: R07.9 Chest pain, unspecified (principal) | CPT/HCPCS: 93010 ==

== ENCOUNTER 2024-04-08 10:23 | Outpatient (REF) | payer MEDICARE, MEDICAID, SELFPAY ==
[2024-04-08 10:38] LABS: MANUAL DIFF FLAG NO
[2024-04-08 10:59] LABS: Basophils Percent Auto 0.6 % (0-2); Eosinophils Absolute Auto 0.2 X10*3/uL (0.0-0.4); Eosinophils Percent Auto 3.5 % (0-4); Hematocrit 36.9 % (37.0-47.0); Hemoglobin 11.6 g/dl (12.0-16.0); Imm Gran Abs Auto 0.03 X10*3/uL (0.00-0.03); Imm Gran Pct Auto 0.5 % (0.0-0.4); Lymphocytes Absolute Auto 1.3 X10*3/uL (1.2-4.9); Lymphocytes Percent Auto 20.3 % (20-40); Mean Corpuscular HGB Conc 31.4 g/dl (31.0-35.0); Mean Corpuscular Hemoglobin 27.2 pg (27.0-33.0); Mean Corpuscular Volume 86.4 fL (80.0-98.0); Mean Platelet Volume 9.2 fL (9.4-12.3); Monocytes Absolute Auto 0.5 X10*3/uL (0.1-1.2); Monocytes Percent Auto 8.2 % (2-11); Neutrophils Absolute Auto 4.2 x10*3/uL (2.0-8.3); Neutrophils Percent Auto 66.9 % (45-73); Platelet Count 286 X10*3/uL (160-400); Red Blood Count 4.27 X10*6/uL (4.20-5.50); White Blood Count 6.2 X10*3/uL (4.8-10.8)
== END 2024-04-08 10:24 | disposition home or self-care (01) ==
LOC: HO.LABR 10:23
PROVIDERS: Visit Provider Psychiatry & Neurology Psychiatry
DX: Z79.899 Other long term (current) drug therapy (principal)
CPT/HCPCS: 36415; 85025

== ENCOUNTER 2024-04-12 14:42 | Emergency (ER) | payer MEDICARE, MEDICAID, SELFPAY ==
[2024-04-12 14:53] VITALS: BP 140/90; BP 149/91; PULSE 114; PULSE 116; RESP 16; TEMP 36.6; O2SAT 98; BMI 43.5
[2024-04-12 14:56] VITALS: RESP 16
[2024-04-12 15:19] LABS: MANUAL DIFF FLAG NO
[2024-04-12 15:22] LABS: Basophils Percent Auto 0.5 % (0-2); Eosinophils Absolute Auto 0.3 X10*3/uL (0.0-0.4); Eosinophils Percent Auto 4.2 % (0-4); Hematocrit 38.8 % (37.0-47.0); Hemoglobin 12.6 g/dl (12.0-16.0); Imm Gran Abs Auto 0.04 X10*3/uL (0.00-0.03); Imm Gran Pct Auto 0.5 % (0.0-0.4); Lymphocytes Absolute Auto 1.4 X10*3/uL (1.2-4.9); Lymphocytes Percent Auto 17.5 % (20-40); Mean Corpuscular HGB Conc 32.5 g/dl (31.0-35.0); Mean Corpuscular Hemoglobin 27.6 pg (27.0-33.0); Mean Corpuscular Volume 85.1 fL (80.0-98.0); Mean Platelet Volume 8.9 fL (9.4-12.3); Monocytes Absolute Auto 0.6 X10*3/uL (0.1-1.2); Monocytes Percent Auto 7.5 % (2-11); Neutrophils Absolute Auto 5.6 x10*3/uL (2.0-8.3); Neutrophils Percent Auto 69.8 % (45-73); Platelet Count 309 X10*3/uL (160-400); Red Blood Count 4.56 X10*6/uL (4.20-5.50); Red Cell Distribution Width 22.6 % (11.0-16.0); White Blood Count 8.1 X10*3/uL (4.8-10.8)
[2024-04-12 15:23] LABS: Appearance Urine Clear; Color Urine Yellow; Glucose Urine UA Negative (Negative); Leukocyte Esterase Urine Trace (Negative); Nitrite Urine Negative (Negative); PH 5.5 (5.0-9.0); Specific Gravity - Urine <= 1.005 (1.005-1.025); UMIC TRIGGER UACC YES; Urine Blood Small (1+) (Negative); Urine Ketones Negative (Negative); Urine Protein Negative (Neg-Trace)
[2024-04-12 15:36] LABS: Amphetamine Screen Urine Not Detected (Not Detect); Barbiturates, Urine Not Detected (Not Detect); Benzodiazepines Screen Urine Not Detected (Not Detect); Buprenorphine Scr Not Detected (Not Detect); Cannabinoid Screen Urine Not Detected (Not Detect); Cocaine Screen Urine Not Detected (Not Detect); Fentanyl, urine Not Detected (Not Detect); Methadone Screen, Urine Not Detected (Not Detect); Opiate Screen Urine Not Detected (Not Detect); Oxycodone Screen Urine Not Detected (Not Detect); Phencyclidine Screen Urine Not Detected (Not Detect)
[2024-04-12 15:40] LABS: Alanine Aminotransferase 22 U/L (0-31); Albumin Level 4.5 g/dL (3.5-5.0); Alkaline Phosphatase 137 U/L (39-117); Anion Gap 14 (12-20); Aspartate Amino Transferase 21 U/L (5-31); Bilirubin Total 0.2 mg/dL (0.0-1.0); Blood Urea Nitrogen 10 mg/dL (9-16); Calcium 9.8 mg/dL (8.4-10.2); Carbon Dioxide 24 mmol/L (22-29); Chloride 106 mmol/L (96-108); Creatinine Clr Calc Pharmacy 111.6; Estimated Glomerular Filt Rate > 60; Ethanol < 10 mg/dL; Glucose Random 99 mg/dL (60-115); Potassium 4.4 mmol/L (3.3-5.1); Sodium 140 mmol/L (135-145); Total Protein 7.4 g/dL (6.5-8.0)
[2024-04-12 15:42] LABS: Bacteria Urine None Seen (None Seen); Hyaline Casts Urine 0-2 /LPF (0-2); RBC Urine 0-2 /HPF (0-2); WBC Urine 0-5 /HPF (0-5)
--- NOTE | 2024-04-12 16:38 | ED_ITS ---
HPI - Psych General Chief Complaint: Psychiatric Symptoms Stated Complaint: BEHAVIORAL CRISIS @ [facility],SCRATCHES TO RUE Time Seen by Provider: 04/12/24 15:59 Source: patient and EMS Mode of arrival: EMS Limitations: no limitations History of Present Illness ED Provider: Terry LOYA HPI Narrative: 48-year-old female history of PTSD, Tylenol overdoses, hyperlipidemia, diabetes, depression, borderline personality disorder presents to the emergency department anxiety, depression, auditory hallucinations due to fiances anniversary today. She reports she is feeling anxious and has increasing life stressors. Denies any medical complaints at this time. She was brought in by ambulance. Related Data Home Medications ?Medication ?Instructions ?Recorded ?Confirmed fluoxetine 40 mg capsule 80 mg PO DAILY 08/25/23 04/12/24 lorazepam 0.5 mg tablet 0.5 mg PO BID PRN Anxiety 08/31/23 04/12/24 albuterol sulfate 90 mcg/actuation 2 inh inhalation Q4H PRN Shortness 09/17/23 04/12/24 aerosol inhaler (Ventolin HFA) Of Breath Or Wheezing famotidine 10 mg tablet 10 mg PO BID@0630,1630 09/17/23 04/12/24 montelukast 10 mg tablet 10 mg PO BEDTIME 09/17/23 04/12/24 atorvastatin 10 mg tablet 10 mg PO DAILY 10/04/23 04/12/24 benztropine 1 mg tablet 1 mg PO BID 10/04/23 04/12/24 metformin 500 mg tablet 500 mg PO BID 10/04/23 04/12/24 pantoprazole 40 mg tablet,delayed 40 mg PO DAILY@0630 10/04/23 04/12/24 release fluticasone 250 mcg-salmeterol 50 1 ea inhalation BID 11/18/23 04/12/24 mcg/dose blistr powdr for inhalation lisinopril 5 mg tablet 5 mg PO DAILY blood pressure 11/18/23 04/12/24 prazosin 2 mg capsule 4 mg PO BEDTIME 11/18/23 04/12/24 buspirone 10 mg tablet 10 mg PO BID 01/09/24 04/12/24 fluphenazine HCl 5 mg tablet 5 mg PO BID 01/09/24 04/12/24 mirtazapine 15 mg tablet 15 mg PO BEDTIME 01/09/24 04/12/24 Previous Rx's ?Medication ?Instructions ?Recorded haloperidol 5 mg tablet 5 mg PO TID@0900,1530,2100 30 days 11/29/23 #90 tabs lactulose 20 gram/30 mL oral 20 g (30 mL) PO DAILY PRN 11/29/23 solution constipation 30 days #1,200 mL clozapine 25 mg tablet (Clozaril) 75 mg (3 x 25 mg) PO BEDTIME 3 12/23/23 weeks #63 tabs Allergies Allergy/AdvReac Type Severity Reaction Status Date / Time azithromycin [AZITHROMYCIN] Allergy Severe Rash Verified 04/12/24 14:55 Fish Containing Products Allergy Severe Anaphylaxis Verified 04/12/24 14:55 codeine [Codeine] Allergy Intermediate Rash Verified 04/12/24 14:55 Penicillins Allergy Intermediate Rash Verified 04/12/24 14:55 prednisone [Prednisone] Allergy Intermediate Rash Verified 04/12/24 14:55 Sulfa (Sulfonamide Allergy Intermediate Rash Verified 04/12/24 14:55 Antibiotics) [Sulfa (Sulfonamides)] ziprasidone [From Geodon] Allergy Intermediate dysuria, Verified 04/12/24 14:55 rash lithium Allergy Rash Verified 04/12/24 14:55 Review of Systems 2 Review of Systems: Yes all other systems are reviewed and are negative PMFSH Past Medical History Attestation statement: The following information was validated with the patient. Source: old records reviewed and nursing notes reviewed Medical History Suicidal ideation MDD (major depressive disorder), recurrent episode, severe Chest pain Acute anxiety COVID-19 Full body hives Major depression Dizziness Suicide attempt UTI (urinary tract infection) Acetaminophen overdose COVID History of attempted suicide History of non-suicidal self-harm Hypomagnesemia Suicide attempt Suicide attempt by acetaminophen overdose Acetaminophen overdose Depression Diabetes type 2, controlled Borderline personality disorder PTSD (post-traumatic stress disorder) Overdose GERD (gastroesophageal reflux disease) Mood disorder Hyperlipidemia Bronchitis Social History Social History Household Members: None Household Members Other:: long-term Housing: Other Housing Other:: Intermediate Do you presently have visiting nurse or other home services: No Unable to assess alcohol history related to: Unknown Alcohol intake: former Comment: sitter in room Patient Tobacco Use Status: Former Tobacco user Tobacco use type: Cigarette Cigarette Packs Per Day: 1 Cigarettes Per Day: 20.0 Years Smoked: 22 Smoked in Last 30 Days: Yes e-Cigarette/Vaping Use: Never Used Second Hand Smoke Exposure: No Use of substances other than those prescribed or required for medical reasons: No Substance Use Type: Marijuana Advance Directives: No Patient : No service: No Current occupational status: unemployed and disabled Sexual orientation: Straight/Heterosexual Physical Exam 2 Vital Signs: Vital Signs: Last Vital Signs Temp 97.8 F 04/12/24 14:53 Pulse 116 H 04/12/24 14:53 Resp 16 04/12/24 14:56 BP 149/91 H 04/12/24 14:53 Pulse Ox 98 04/12/24 14:53 O2 Del Method Room Air 04/12/24 14:53 BMI result Body Mass Index 43.5 Slight tachycardia likely secondary to anxiety. Appearance: Alert.? Oriented X3.? No acute distress.? Head: Normocephalic, atraumatic, no step-offs or deformities Eyes: Pupils equal, round and reactive to light.? ENT: Pharynx normal.? Neck: Normal inspection.? Neck supple.? CVS: Normal heart rate and rhythm.? Pulses normal.? Respiratory: No respiratory distress.? Breath sounds normal.? Abdomen: Soft and nontender.? Skin: Skin warm and dry.? Normal skin color.? Normal skin turgor.? Extremities: No lower extremity edema.? No calf ttp. 5/5 strength to bilateral upper and lower extremities Neuro: Oriented X 3.? No motor deficit.? No sensory deficit. CN 2-12 intact Course Reevaluation(s) Reevaluation #1: CBC unremarkable. Chemistry no acute findings requiring intervention. UA without infection. Urine toxicology negative. Ethanol negative. Salicylates acetaminophen pending. At this time patient to be placed into observation to allow more time to be evaluated by care team. At time observation started patient common cooperative no acute distress will continue to monitor Time: 16:41 Reevaluation #2: Patient feeling better and evaluated by care team. Who feels as though patient is good to return to long-term. Time: 18:21 Medical Decision Making Medical Decision Making MDM Narrative: 48 year old female presents w/ hallucinations and anxiety/depression PE benign Likely MDD vs borderline personality do vs anxiety vs depression Unlikely metabolic causes. Will rule out drug use and salicylates, acetaminophen overdose. Plan medical clearance evaluation by behavioral health team Differential Diagnosis Differential Diagnoses: The differential diagnosis associated with the presentation includes Admission/Observation Consideration of admission/observation: Escalation of care including admission/observation considered Possible Consult Healthcare Provider Management of the patient was discussed with: Behavioral Health Provider Lab Data MDM Lab Attestation statement: I reviewed the patient's lab results. 04/12/24 15:13 04/12/24 15:13 Labs: Lab Results 04/12/24 04/12/24 04/12/24 Range/Units 15:09 15:13 17:07 WBC 8.1 (4.8-10.8) X10*3/uL RBC 4.56 (4.20-5.50) X10*6/uL Hgb 12.6 (12.0-16.0) g/dl Hct 38.8 (37.0-47.0) % MCV 85.1 (80.0-98.0) fL MCH 27.6 (27.0-33.0) pg MCHC 32.5 (31.0-35.0) g/dl RDW 22.6 H (11.0-16.0) % Plt Count 309 (160-400) X10*3/uL MPV 8.9 L (9.4-12.3) fL Immature Gran % (Auto) 0.5 H (0.0-0.4) % Neut % (Auto) 69.8 (45-73) % Lymph % (Auto) 17.5 L (20-40) % [place] % (Auto) 7.5 (2-11) % Eos % (Auto) 4.2 H (0-4) % Baso % (Auto) 0.5 (0-2) % Lymph # (Auto) 1.4 (1.2-4.9) X10*3/uL [place] # (Auto) 0.6 (0.1-1.2) X10*3/uL Eos # (Auto) 0.3 (0.0-0.4) X10*3/uL Baso # (Auto) 0.0 (0.0-0.2) X10*3/uL Abs Immat Gran (auto) 0.04 H (0.00-0.03) X10*3/uL Absolute Neuts (auto) 5.6 (2.0-8.3) x10*3/uL Absolute Nucleated RBC 0.000 (0.0-0.012) X10*3/uL Nucleated RBC % (auto) 0.0 (0.0-0.2) /100WBC Sodium 140 (135-145) mmol/L Potassium 4.4 D (3.3-5.1) mmol/L Chloride 106 (96-108) mmol/L Carbon Dioxide 24 (22-29) mmol/L Anion Gap 14 (12-20) BUN 10 (9-16) mg/dL Creatinine 0.70 (0.5-1.4) mg/dL Estim Creat Clear Calc 111.6 Estimated GFR > 60 Random Glucose 99 (60-115) mg/dL Calcium 9.8 (8.4-10.2) mg/dL Total Bilirubin 0.2 (0.0-1.0) mg/dL AST 21 (5-31) U/L ALT 22 (0-31) U/L Alkaline Phosphatase 137 H (39-117) U/L Total Protein 7.4 (6.5-8.0) g/dL Albumin 4.5 (3.5-5.0) g/dL Urine Color Yellow Urine Appearance Clear Urine pH 5.5 (5.0-9.0) Ur Specific [place] <= 1.005 (1.005-1.025) Urine Protein Negative (Neg-Trace) mg/dL Urine Glucose (UA) Negative (Negative) mg/dL Urine Ketones Negative (Negative) mg/dL Urine Blood Small (1+) H (Negative) Urine Nitrite Negative (Negative) Ur Leukocyte Esterase Trace H (Negative) Urine RBC 0-2 (0-2) /HPF Urine WBC 0-5 (0-5) /HPF Ur Squamous Epith Cells 3-5 (0-2) /HPF Urine Bacteria None Seen (None Seen) Hyaline Casts 0-2 (0-2) /LPF Salicylates < 5.0 L (15-30) mg/dL Urine Opiates Screen Not Detected (Not Detect) Ur Buprenorphine Scrn Not Detected (Not Detect) ng/mL Ur Oxycodone Screen Not Detected (Not Detect) ng/mL Urine Methadone Screen Not Detected (Not Detect) ng/mL Urine Fentanyl Screen Not Detected (Not Detect) Acetaminophen < 3 (<30) mcg/mL Ur Barbiturates Screen Not Detected (Not Detect) Ur Phencyclidine Scrn Not Detected (Not Detect) Ur Amphetamines Screen Not Detected (Not Detect) U Benzodiazepines Scrn Not Detected (Not Detect) Urine Cocaine Screen Not Detected (Not Detect) U Marijuana (THC) Screen Not Detected (Not Detect) Ethyl Alcohol < 10 mg/dL External Record Review External record reviewed: Inpatient record, Office record, Outpatient record, Prior outpatient labs, Prior outpatient radiology, Primary care record and Outside ED record Chronic Conditions Patient?s care impacted by: Other (PTSD, Tylenol overdoses, hyperlipidemia, diabetes, depression, borderline personality) Critical Care Time Critical Care Time Critical Care Time: No Discharge Plan Discharge Clinical Impression: Acute anxiety Patient Disposition: Home, Self-Care Instructions: Anxiety (ED) Additional Instructions: LTake your medications as prescribed. If you were prescribed antibiotics today, it is important that you take your medication to their entirety, do not skip any doses, do not finish them early. Follow-up with your primary care provider this week. Return to the emergency department with new or worsening symptoms. Such as fevers, chills, chest pain, shortness of breath, nausea, vomiting, dizziness, headache, vision changes, lethargy In case of emergency call 911 Prescriptions: No Action fluoxetine 40 mg capsule 80 mg PO DAILY lorazepam 0.5 mg tablet 0.5 mg PO BID PRN (Reason: Anxiety) fluticasone propion-salmeterol 250-50 mcg/dose blister with device 1 ea inhalation BID lisinopril 5 mg tablet 5 mg PO DAILY prazosin 2 mg capsule 4 mg PO BEDTIME haloperidol 5 mg Tablet 5 mg PO TID@0900,1530,2100 30 Days Qty: 90 0RF lactulose 20 gram/30 mL Solution 20 g PO DAILY PRN (Reason: constipation) 30 Days Qty: 1200 0RF clozapine [Clozaril] 25 mg tablet 75 mg PO BEDTIME 21 Days Qty: 63 0RF famotidine 10 mg Tablet 10 mg PO BID@0630,1630 albuterol sulfate [Ventolin HFA] 90 mcg/actuation HFA aerosol inhaler 2 inh inhalation Q4H PRN (Reason: Shortness Of Breath Or Wheezing) montelukast 10 mg tablet 10 mg PO BEDTIME metformin 500 mg tablet 500 mg PO BID atorvastatin 10 mg tablet 10 mg PO DAILY pantoprazole 40 mg tablet,delayed release (DR/EC) 40 mg PO DAILY@0630 benztropine 1 mg tablet 1 mg PO BID buspirone [BuSpar] 10 mg Tablet 10 mg PO BID mirtazapine 15 mg Tablet 15 mg PO BEDTIME fluphenazine HCl 5 mg tablet 5 mg PO BID Referrals: Physician,Unknown J [Primary Care Provider] - 2 days Interventions: [place]-Suicide Risk Severity Scale Last Done: 04/12/24 14:57 Print Language: Occitan
--- NOTE | 2024-04-12 16:42 | PC.NURSE ---
Lucita comes in today reporting auditory hallucinations and vague SI with associated cuts on her arms from her fingernails. She is calm and cooperative, joking with staff, offering no complaints. She reports that this is the anniversary of her fiances and it is causing her a great deal of stress. Medically cleared at this time, pending CARE team
[2024-04-12 17:34] LABS: Acetaminophen LAB < 3 mcg/mL (<30); Salicylate < 5.0 mg/dL (15-30)
[2024-04-12 18:36] VITALS: BP 142/88; PULSE 92; RESP 16; TEMP 36.6; O2SAT 99
== END 2024-04-12 18:37 | disposition home or self-care (01) ==
PROVIDERS: Physician Assistant; Emergency Provider Emergency Medicine
DX: F41.9 Anxiety disorder, unspecified (principal); F33.2 Major depressive disorder, recurrent severe without psychotic features; F60.3 Borderline personality disorder; R00.0 Tachycardia, unspecified; R44.3 Hallucinations, unspecified; E11.9 Type 2 diabetes mellitus without complications; E78.5 Hyperlipidemia, unspecified; K21.9 Gastro-esophageal reflux disease without esophagitis; F43.10 Post-traumatic stress disorder, unspecified; Z91.52 Personal history of nonsuicidal self-harm; Z91.51 Personal history of suicidal behavior; Z87.891 Personal history of nicotine dependence; Z79.84 Long term (current) use of oral hypoglycemic drugs; Z79.02 Long term (current) use of antithrombotics/antiplatelets; Z79.899 Other long term (current) drug therapy
CPT/HCPCS: 36415; 80053; 80143; 80179; 80307; 81001; 85025; 99285; S9485

== ENCOUNTER 2024-04-15 11:06 | Outpatient (REF) | payer MEDICARE, MEDICAID, SELFPAY ==
[2024-04-15 11:24] LABS: MANUAL DIFF FLAG NO
[2024-04-15 12:12] LABS: Basophils Absolute Auto 0.1 X10*3/uL (0.0-0.2); Basophils Percent Auto 0.8 % (0-2); Eosinophils Absolute Auto 0.3 X10*3/uL (0.0-0.4); Eosinophils Percent Auto 4.2 % (0-4); Hematocrit 39.7 % (37.0-47.0); Hemoglobin 12.8 g/dl (12.0-16.0); Imm Gran Abs Auto 0.03 X10*3/uL (0.00-0.03); Imm Gran Pct Auto 0.5 % (0.0-0.4); Lymphocytes Absolute Auto 1.5 X10*3/uL (1.2-4.9); Lymphocytes Percent Auto 23.3 % (20-40); Mean Corpuscular HGB Conc 32.2 g/dl (31.0-35.0); Mean Corpuscular Hemoglobin 27.6 pg (27.0-33.0); Mean Corpuscular Volume 85.7 fL (80.0-98.0); Mean Platelet Volume 9.6 fL (9.4-12.3); Monocytes Absolute Auto 0.6 X10*3/uL (0.1-1.2); Monocytes Percent Auto 9.2 % (2-11); Platelet Count 318 X10*3/uL (160-400); Red Blood Count 4.63 X10*6/uL (4.20-5.50); Red Cell Distribution Width 22.2 % (11.0-16.0); White Blood Count 6.4 X10*3/uL (4.8-10.8)
== END 2024-04-15 11:07 | disposition home or self-care (01) ==
LOC: HO.LABR 11:06
PROVIDERS: Visit Provider Psychiatry & Neurology Psychiatry
DX: Z79.899 Other long term (current) drug therapy (principal)
CPT/HCPCS: 36415; 85025

== ENCOUNTER 2024-04-19 17:50 | Emergency (ER) | payer MEDICARE, MEDICAID, SELFPAY ==
--- NOTE | ~2024-04-19 | XR_ITS ---
EXAMINATION: XR CHEST CLINICAL INFORMATION: Chest pain COMPARISON: 03/24/2024 TECHNIQUE: 2 views of the chest were obtained. FINDINGS: No significant abnormality is noted involving the heart, lungs, mediastinum, bony thorax or soft tissues. XR/XR chest 2V IMPRESSION: Unremarkable examination.
[2024-04-19 18:02] VITALS: BP 130/90; BP 149/100; PULSE 110; PULSE 119; RESP 22; TEMP 36.9; O2SAT 96; O2SAT 98; BMI 43.0
[2024-04-19 18:06] VITALS: BP 149/100; PULSE 119; RESP 22; TEMP 36.9; O2SAT 96
--- NOTE | 2024-04-19 18:17 | ED_ITS ---
HPI - General Adult General Chief complaint: Dyspnea Stated complaint: PAIN WHILE INHALING Time Seen by Provider: 04/19/24 18:17 Source: patient and EMS Mode of arrival: EMS Limitations: no limitations History of Present Illness ED Provider: Nicki Schreiber PA-C HPI narrative: Patient is a 48 year old assigned female at with a history of MDD and asthma presenting to the emergency department today with chest pain. Patient states that she smoked a cigarette today and had chest pain afterwards. Patient denies any dizziness, lightheadedness, abdominal pain, nausea, vomiting, fever, chills, blurry vision, double vision, loss of vision, difficulty breathing, shortness of breath, back pain, night sweats, pain with urination, increased urinary frequency, increased urinary urgency, blood in her urine or stool, syncope or a near syncopal episode, recent trauma or falls, bowel incontinence, bladder incontinence, bowel retention, bladder retention, or any other complaints at this time. Onset (ago): minute(s) Location: chest Severity: mild Severity scale (1-10): 3 Quality: aching Pain Consistency: constant Relieving factors: none Exacerbating factors: none Associated symptoms: chest pain Treatments prior to arrival: none Related Data Home Medications ?Medication ?Instructions ?Recorded ?Confirmed fluoxetine 40 mg capsule 80 mg PO DAILY 08/25/23 04/12/24 lorazepam 0.5 mg tablet 0.5 mg PO BID PRN Anxiety 08/31/23 04/12/24 albuterol sulfate 90 mcg/actuation 2 inh inhalation Q4H PRN Shortness 09/17/23 04/12/24 aerosol inhaler (Ventolin HFA) Of Breath Or Wheezing famotidine 10 mg tablet 10 mg PO BID@0630,1630 09/17/23 04/12/24 montelukast 10 mg tablet 10 mg PO BEDTIME 09/17/23 04/12/24 atorvastatin 10 mg tablet 10 mg PO DAILY 10/04/23 04/12/24 benztropine 1 mg tablet 1 mg PO BID 10/04/23 04/12/24 metformin 500 mg tablet 500 mg PO BID 10/04/23 04/12/24 pantoprazole 40 mg tablet,delayed 40 mg PO DAILY@0630 10/04/23 04/12/24 release fluticasone 250 mcg-salmeterol 50 1 ea inhalation BID 11/18/23 04/12/24 mcg/dose blistr powdr for inhalation lisinopril 5 mg tablet 5 mg PO DAILY blood pressure 11/18/23 04/12/24 prazosin 2 mg capsule 4 mg PO BEDTIME 11/18/23 04/12/24 buspirone 10 mg tablet 10 mg PO BID 01/09/24 04/12/24 fluphenazine HCl 5 mg tablet 5 mg PO BID 01/09/24 04/12/24 mirtazapine 15 mg tablet 15 mg PO BEDTIME 01/09/24 04/12/24 Previous Rx's ?Medication ?Instructions ?Recorded haloperidol 5 mg tablet 5 mg PO TID@0900,1530,2100 30 days 11/29/23 #90 tabs lactulose 20 gram/30 mL oral 20 g (30 mL) PO DAILY PRN 11/29/23 solution constipation 30 days #1,200 mL clozapine 25 mg tablet (Clozaril) 75 mg (3 x 25 mg) PO BEDTIME 3 12/23/23 weeks #63 tabs albuterol sulfate 0.63 mg/3 mL 0.63 mg (3 mL) inhalation Q6H #90 04/19/24 solution for nebulization mL nebulizer accessories (Reusable #1 ea 04/19/24 Nebulizer Kit) Allergies Allergy/AdvReac Type Severity Reaction Status Date / Time azithromycin [AZITHROMYCIN] Allergy Severe Rash Verified 04/19/24 18:04 Fish Containing Products Allergy Severe Anaphylaxis Verified 04/19/24 18:04 codeine [Codeine] Allergy Intermediate Rash Verified 04/19/24 18:04 Penicillins Allergy Intermediate Rash Verified 04/19/24 18:04 prednisone [Prednisone] Allergy Intermediate Rash Verified 04/19/24 18:04 Sulfa (Sulfonamide Allergy Intermediate Rash Verified 04/19/24 18:04 Antibiotics) [Sulfa (Sulfonamides)] ziprasidone [From Geodon] Allergy Intermediate dysuria, Verified 04/19/24 18:04 rash lithium Allergy Rash Verified 04/19/24 18:04 Review of Systems 2 Constitutional: Constitutional: Reports no additional constitutional complaints, Denies chills, Denies fever(s) and Denies night sweats Eyes: Eyes: Reports no additional eye complaints, Denies blurry vision, Denies change in vision, Denies diplopia, Denies eye discharge, Denies loss of vision and Denies eye pain ENT: Denies dizziness Cardiovascular: Cardiovascular: Reports no additional cardiovascular complaints, Reports chest pain, Denies lightheadedness, Denies Loss of Consciousness and Denies dyspnea Respiratory: Respiratory: Reports no additional respiratory complaints and Denies dyspnea Gastrointestinal: Gastrointestinal: Reports no additional gastrointestinal complaints, Denies abdominal pain, Denies melena, Denies hematochezia, Denies change in bowel habits and Denies change in stool character Genitourinary: Genitourinary: Denies hematuria, Denies urinary frequency, Denies dysuria, Denies urinary incontinence, Denies urinary hesitancy and Denies urinary urgency Musculoskeletal: Musculoskeletal: Reports no additional musculoskeletal complaints, Denies numbness and Denies tingling Neurologic: Denies dizziness, Denies loss of vision, Denies numbness and Denies tingling Psychiatric: Psychiatric: Reports no additional psychiatric complaints Endocrine: Endocrine: Reports no additional endocrine complaints Hematologic/Lymphatic: Hematologic/Lymphatic: Reports no additional hematologic/lymphatic complaints Allergic/Immunologic: Allergic/Immunologic: Reports no additional allergic/immunologic complaints PMFSH Past Medical History Attestation statement: The following information was validated with the patient. Source: old records reviewed and nursing notes reviewed Medical History Suicidal ideation MDD (major depressive disorder), recurrent episode, severe Chest pain Acute anxiety COVID-19 Full body hives Major depression Dizziness Suicide attempt UTI (urinary tract infection) Acetaminophen overdose COVID History of attempted suicide History of non-suicidal self-harm Hypomagnesemia Suicide attempt Suicide attempt by acetaminophen overdose Acetaminophen overdose Depression Diabetes type 2, controlled Borderline personality disorder PTSD (post-traumatic stress disorder) Overdose GERD (gastroesophageal reflux disease) Mood disorder Hyperlipidemia Bronchitis Social History Social History Household Members: None Household Members Other:: senior care Housing: Other Housing Other:: Halfway Do you presently have visiting nurse or other home services: No Unable to assess alcohol history related to: Unknown Alcohol intake: former Comment: sitter in room Patient Tobacco Use Status: Former Tobacco user Tobacco use type: Cigarette Cigarette Packs Per Day: 1 Cigarettes Per Day: 20.0 Years Smoked: 22 Smoked in Last 30 Days: Yes e-Cigarette/Vaping Use: Never Used Second Hand Smoke Exposure: No Use of substances other than those prescribed or required for medical reasons: No Substance Use Type: Marijuana Advance Directives: No Advance Directives Information Provided: No Do you have a plan to hurt others: No Plan service: No Current occupational status: unemployed and disabled Sexual orientation: Straight/Heterosexual Physical Exam ED Vital Signs: Vital Signs - 24 hr 04/19/24 18:02 04/19/24 18:06 04/19/24 18:41 Temperature 98.5 F 98.5 F Pulse Rate 119 H 119 H 118 H Respiratory Rate 22 H 22 H 20 Blood Pressure 149/100 H 149/100 H Pulse Oximetry 96 96 Oxygen Delivery Method Room Air Room Air 04/19/24 20:23 Temperature 98.1 F Pulse Rate 109 H Respiratory Rate 15 Blood Pressure 146/90 H Pulse Oximetry 99 Oxygen Delivery Method Room Air BMI result Body Mass Index 43.0 Const General: cooperative, no acute distress, alert and awake Nutritional Appearance: well nourished Orientation/consciousness: patient oriented x3 Limitations: no limitations HENMT Head: Yes normal to inspection and Yes atraumatic Ears: hearing grossly normal bilaterally and external ears normal General nose exam: Normal external nose present, no nasal discharge noted and no epistaxis Face and sinus: Yes normal facial exam, No abrasion and No laceration Mouth: Normal oral and palatal mucosa present, no drooling and no muffled voice Eyes General: appearance normal, both eyes and all related structures Periorbital: periorbital findings normal Eyelids: Yes eyelids normal Conjunctivae: conjunctivae normal Pupils: Equal, round and reactive pupils present EOM: EOMs intact bilaterally Neck Neck: Yes normal visual inspection, Yes full ROM and Yes no lymphadenopathy Chest Chest palpation & inspection: normal inspection of the chest Resp Effort & Inspection: normal respiratory effort and able to speak in complete sentences GI Inspection: Yes normal to inspection Neuro General: patient oriented x3 and moves all extremities Cranial nerves: Yes Equal, round and reactive pupils present Cognition (Neuro): normal cognition Extrem General: Yes normal to inspection, Yes full ROM and Yes capillary refill normal Psych Appearance: grossly normal Mental Status: mental status grossly normal Affect: normal affect Attitude: cooperative Thought process: Normal thought process present Thought content: Normal thought content present Insight: Good insight present (Psych) Medications Administered Discontinued Medications Generic Name Dose Route Start Last Admin Trade Name Freq PRN Reason Stop Dose Admin Albuterol Sulfate 2.5 mg 04/19/24 18:41 04/19/24 18:42 Albuterol Sulfate (0.083%) 2.5 Mg/3 Ml Vial.Neb INHALE 04/19/24 18:42 2.5 mg ONCE ONE Administration Ondansetron HCl 4 mg 04/19/24 18:21 04/19/24 19:52 Ondansetron Odt 4 Mg Tab.Itzeldis DANIELINGU 04/19/24 18:22 4 mg ONCE ONE Administration Medical Decision Making Medical Decision Making [facility] Narrative: Patient is a 48 year old assigned female at with a history of MDD and asthma presenting to the emergency department today with chest pain after smoking a cigarette. Patient's physical exam was unremarkable. Patient's blood work was unremarkable. Patient's EKG was unremarkable. Patient's chest x-ray showed no acute process. I explained my physical exam findings as well as all test results to the patient. I answered all questions asked by the patient. I stressed the importance of the patient taking her medication as directed (either prescribed or as the over the counter packaging recommends). I stressed the importance of the patient following up with her primary care provider. I stressed the importance of the patient returning to the emergency department immediately if her symptoms were to worsen or if she were to develop any dizziness, shortness of breath, difficulty breathing, chest pain, blurry vision, loss of vision, nausea, vomiting, abdominal pain, fever, chills, back pain, or any other complaints. Patient verbalized agreement and understanding with this treatment plan and discharge. Differential Diagnosis Differential Diagnoses: The differential diagnosis associated with the presentation includes Chest pain Asthma exacerbation Admission/Observation Consideration of admission/observation: Escalation of care including admission/observation considered Patient would have been admitted to the hospital had her work up had any findings where hospital admission was appropriate and her clinical presentation warranted hospital admission. Lab Data [facility] Lab Attestation statement: I reviewed the patient's lab results. My interpretation of these results are in the [facility] Rationale portion of this note. 04/19/24 18:50 04/19/24 18:50 Labs: Lab Results 04/19/24 Range/Units 18:50 WBC 7.6 (4.8-10.8) X10*3/uL RBC 4.33 (4.20-5.50) X10*6/uL Hgb 12.3 (12.0-16.0) g/dl Hct 37.5 (37.0-47.0) % MCV 86.6 (80.0-98.0) fL MCH 28.4 (27.0-33.0) pg MCHC 32.8 (31.0-35.0) g/dl RDW 21.9 H (11.0-16.0) % Plt Count 296 (160-400) X10*3/uL MPV 8.9 L (9.4-12.3) fL Immature Gran % (Auto) 0.5 H (0.0-0.4) % Neut % (Auto) 63.7 (45-73) % Lymph % (Auto) 23.8 (20-40) % [place] % (Auto) 8.3 (2-11) % Eos % (Auto) 3.2 (0-4) % Baso % (Auto) 0.5 (0-2) % Lymph # (Auto) 1.8 (1.2-4.9) X10*3/uL [place] # (Auto) 0.6 (0.1-1.2) X10*3/uL Eos # (Auto) 0.2 (0.0-0.4) X10*3/uL Baso # (Auto) 0.0 (0.0-0.2) X10*3/uL Abs Immat Gran (auto) 0.04 H (0.00-0.03) X10*3/uL Absolute Neuts (auto) 4.9 (2.0-8.3) x10*3/uL Absolute Nucleated RBC 0.000 (0.0-0.012) X10*3/uL Nucleated RBC % (auto) 0.0 (0.0-0.2) /100WBC Sodium 144 (135-145) mmol/L Potassium 4.2 (3.3-5.1) mmol/L Chloride 107 (96-108) mmol/L Carbon Dioxide 25 (22-29) mmol/L Anion Gap 16 (12-20) BUN 12 (9-16) mg/dL Creatinine 0.82 (0.5-1.4) mg/dL Estim Creat Clear Calc 106.8 Estimated GFR > 60 Random Glucose 94 (60-115) mg/dL Calcium 9.5 (8.4-10.2) mg/dL Magnesium 1.8 (1.6-2.6) mg/dL Total Bilirubin 0.1 (0.0-1.0) mg/dL AST 19 (5-31) U/L ALT 22 (0-31) U/L Alkaline Phosphatase 151 H (39-117) U/L Troponin I High Sens < 2.7 (<3.5-17.0) ng/L Total Protein 7.2 (6.5-8.0) g/dL Albumin 4.4 (3.5-5.0) g/dL Influenza Type A (PCR) NEGATIVE (Negative) Influenza Type B (PCR) NEGATIVE (Negative) RSV RNA Qual (PCR) NEGATIVE (Negative) SARS-CoV-2 RNA (RT-PCR) NEGATIVE (Negative) Independent Interpretation I performed an independent interpretation of an: EKG and Plain X-Ray Interpretation: My interpretation is in agreement with the radiologist's impression of this imaging study. - EXAMINATION: XR CHEST CLINICAL INFORMATION: Chest pain COMPARISON: 03/24/2024 TECHNIQUE: 2 views of the chest were obtained. FINDINGS: No significant abnormality is noted involving the heart, lungs, mediastinum, bony thorax or soft tissues. XR/XR chest 2V IMPRESSION: Unremarkable examination. Dictated By: Yoseph Irwin MD Signed By: Electronically signed by Yoseph Irwin MD 04/19/242035 - Vent. Rate: 122 BPM Atrial Rate: 122 BPM P-R Int: 150 ms QRS Dur: 076 ms QT Int: 312 ms P-R-T Axes: 060 048 054 degrees QTc Int: 444 ms Sinus tachycardia Possible Left atrial enlargement Septal infarct, age undetermined Abnormal ECG When compared with ECG of 04-APR-2024 20:00, Septal infarct is now Present DD/ 819 Radiology Impression Discussion of test interpretation with radiology: I have reviewed the radiologist's reading. Independent Historian Clinical information obtained from an independent historian. History obtained from or confirmed by: EMS (EMS provided additional history and confirmed the history provided by the patient) Discharge Plan Discharge Clinical Impression: Asthma exacerbation Patient Disposition: Home, Self-Care Instructions: Asthma (DC) Additional Instructions: Follow up with your primary care provider. Return to the emergency department immediately if your symptoms worsen or if you develop any dizziness, shortness of breath, difficulty breathing, chest pain, blurry vision, loss of vision, nausea, vomiting, abdominal pain, fever, chills, back pain, or any other complaints. Prescriptions: New (DME) Reusable Nebulizer Kit Kit See Rx Instructions .Route Qty: 1 0RF Rx Instructions: As directed albuterol sulfate 0.63 mg/3 mL solution for nebulization 0.63 mg inhalation Q6H Qty: 90 0RF No Action fluoxetine 40 mg capsule 80 mg PO DAILY lorazepam 0.5 mg tablet 0.5 mg PO BID PRN (Reason: Anxiety) fluticasone propion-salmeterol 250-50 mcg/dose blister with device 1 ea inhalation BID lisinopril 5 mg tablet 5 mg PO DAILY prazosin 2 mg capsule 4 mg PO BEDTIME haloperidol 5 mg Tablet 5 mg PO TID@0900,1530,2100 30 Days Qty: 90 0RF lactulose 20 gram/30 mL Solution 20 g PO DAILY PRN (Reason: constipation) 30 Days Qty: 1200 0RF clozapine [Clozaril] 25 mg tablet 75 mg PO BEDTIME 21 Days Qty: 63 0RF famotidine 10 mg Tablet 10 mg PO BID@0630,1630 albuterol sulfate [Ventolin HFA] 90 mcg/actuation HFA aerosol inhaler 2 inh inhalation Q4H PRN (Reason: Shortness Of Breath Or Wheezing) montelukast 10 mg tablet 10 mg PO BEDTIME metformin 500 mg tablet 500 mg PO BID atorvastatin 10 mg tablet 10 mg PO DAILY pantoprazole 40 mg tablet,delayed release (DR/EC) 40 mg PO DAILY@0630 benztropine 1 mg tablet 1 mg PO BID buspirone [BuSpar] 10 mg Tablet 10 mg PO BID mirtazapine 15 mg Tablet 15 mg PO BEDTIME fluphenazine HCl 5 mg tablet 5 mg PO BID Referrals: [facility] [place] Family Medicine [Provider Group] (Call to establish and follow up with a primary care provider. If you already have a primary care provider, please follow up with them.) [facility] [place] [facility] [Provider Group] [facility] [place] [facility] [Provider Group] Interventions: ED Discharge Assessment Last Done: 04/19/24 20:23 Discharge Date/Time: 04/19/24 20:25 Print Language: Libyan
--- NOTE | 2024-04-19 18:18 | ECG_ITS ---
Test Reason : SOB Blood Pressure : / mmHG Vent. Rate : 122 BPM Atrial Rate : 122 BPM P-R Int : 150 ms QRS Dur : 076 ms QT Int : 312 ms P-R-T Axes : 060 048 054 degrees QTc Int : 444 ms Sinus tachycardia Possible Left atrial enlargement Borderline ECG When compared with ECG of 04-APR-2024 20:00, No significant changes seen Referred By: Nicki Schreiber Electronically Signed By:MAURI COLE
[2024-04-19 18:41] VITALS: PULSE 118; RESP 20; O2SAT 98
[2024-04-19] MEDS: Albuterol Sulfate (0.083%) 2.5 MG/3 ML VIAL.NEB INHALE (18:42)
[2024-04-19 18:54] LABS: MANUAL DIFF FLAG NO
[2024-04-19 18:55] LABS: Basophils Percent Auto 0.5 % (0-2); Eosinophils Absolute Auto 0.2 X10*3/uL (0.0-0.4); Eosinophils Percent Auto 3.2 % (0-4); Hematocrit 37.5 % (37.0-47.0); Hemoglobin 12.3 g/dl (12.0-16.0); Imm Gran Abs Auto 0.04 X10*3/uL (0.00-0.03); Imm Gran Pct Auto 0.5 % (0.0-0.4); Lymphocytes Absolute Auto 1.8 X10*3/uL (1.2-4.9); Lymphocytes Percent Auto 23.8 % (20-40); Mean Corpuscular HGB Conc 32.8 g/dl (31.0-35.0); Mean Corpuscular Hemoglobin 28.4 pg (27.0-33.0); Mean Corpuscular Volume 86.6 fL (80.0-98.0); Mean Platelet Volume 8.9 fL (9.4-12.3); Monocytes Absolute Auto 0.6 X10*3/uL (0.1-1.2); Monocytes Percent Auto 8.3 % (2-11); Neutrophils Absolute Auto 4.9 x10*3/uL (2.0-8.3); Neutrophils Percent Auto 63.7 % (45-73); Platelet Count 296 X10*3/uL (160-400); Red Blood Count 4.33 X10*6/uL (4.20-5.50); Red Cell Distribution Width 21.9 % (11.0-16.0); White Blood Count 7.6 X10*3/uL (4.8-10.8)
[2024-04-19 19:11] LABS: Alanine Aminotransferase 22 U/L (0-31); Albumin Level 4.4 g/dL (3.5-5.0); Alkaline Phosphatase 151 U/L (39-117); Anion Gap 16 (12-20); Aspartate Amino Transferase 19 U/L (5-31); Bilirubin Total 0.1 mg/dL (0.0-1.0); Blood Urea Nitrogen 12 mg/dL (9-16); Calcium 9.5 mg/dL (8.4-10.2); Carbon Dioxide 25 mmol/L (22-29); Chloride 107 mmol/L (96-108); Creatinine Clr Calc Pharmacy 106.8; Estimated Glomerular Filt Rate > 60; Glucose Random 94 mg/dL (60-115); Magnesium 1.8 mg/dL (1.6-2.6); Potassium 4.2 mmol/L (3.3-5.1); Sodium 144 mmol/L (135-145); Total Protein 7.2 g/dL (6.5-8.0)
[2024-04-19 19:20] LABS: Troponin-I High Sensitivity < 2.7 ng/L (<3.5-17.0)
[2024-04-19 19:33] LABS: Influenza A PCR NEGATIVE (Negative); Influenza B PCR NEGATIVE (Negative); Resp Syncy Virus RNA Qual PCR NEGATIVE (Negative); SARS COV2 PCR INHOUSE NEGATIVE (Negative)
--- NOTE | 2024-04-19 19:49 | PC.NURSE ---
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 pt calm/cooperative, cigarettes taken by security. pt reports she feels better and is okay for d/c. awaiting cxr.
[2024-04-19] MEDS: Ondansetron ODT 4 MG TAB.RAPDIS TRANSLINGU (19:52)
[2024-04-19 20:23] VITALS: BP 146/90; PULSE 109; RESP 15; TEMP 36.7; O2SAT 99
== END 2024-04-19 20:25 | disposition home or self-care (01) ==
PROVIDERS: Physician Assistant Medical; Emergency Provider Emergency Medicine Emergency Medical Services
DX: J45.901 Unspecified asthma with (acute) exacerbation (principal); R07.9 Chest pain, unspecified; Z03.818 Encounter for observation for suspected exposure to other biological agents ruled out; F17.210 Nicotine dependence, cigarettes, uncomplicated; E11.9 Type 2 diabetes mellitus without complications; E78.5 Hyperlipidemia, unspecified; D64.9 Anemia, unspecified; K21.9 Gastro-esophageal reflux disease without esophagitis; F41.9 Anxiety disorder, unspecified; F31.9 Bipolar disorder, unspecified; R44.0 Auditory hallucinations; F60.3 Borderline personality disorder; Z91.52 Personal history of nonsuicidal self-harm; Z91.51 Personal history of suicidal behavior; F43.12 Post-traumatic stress disorder, chronic; F12.90 Cannabis use, unspecified, uncomplicated; Z79.84 Long term (current) use of oral hypoglycemic drugs; Z79.899 Other long term (current) drug therapy
CPT/HCPCS: 0241U; 71046; 80053; 83735; 84484; 85025; 93005; 94640; 99284; 99285

== ENCOUNTER → 2024-04-19 18:18 | Outpatient (BNV) | payer MEDICARE, MEDICAID, SELFPAY | PROVIDERS: Emergency Provider Emergency Medicine Emergency Medical Services; Visit Provider Internal Medicine | DX: R06.02 Shortness of breath (principal) | CPT/HCPCS: 93010 ==

== ENCOUNTER 2024-04-22 13:33 | Outpatient (REF) | payer MEDICARE, MEDICAID, SELFPAY ==
[2024-04-22 13:49] LABS: MANUAL DIFF FLAG NO
[2024-04-22 14:02] LABS: Basophils Percent Auto 0.4 % (0-2); Eosinophils Absolute Auto 0.2 X10*3/uL (0.0-0.4); Eosinophils Percent Auto 3.5 % (0-4); Hematocrit 38.4 % (37.0-47.0); Hemoglobin 12.3 g/dl (12.0-16.0); Imm Gran Abs Auto 0.03 X10*3/uL (0.00-0.03); Imm Gran Pct Auto 0.4 % (0.0-0.4); Lymphocytes Absolute Auto 1.3 X10*3/uL (1.2-4.9); Mean Corpuscular Hemoglobin 28.3 pg (27.0-33.0); Mean Corpuscular Volume 88.3 fL (80.0-98.0); Mean Platelet Volume 9.2 fL (9.4-12.3); Monocytes Absolute Auto 0.4 X10*3/uL (0.1-1.2); Monocytes Percent Auto 6.3 % (2-11); Neutrophils Absolute Auto 4.8 x10*3/uL (2.0-8.3); Neutrophils Percent Auto 70.4 % (45-73); Platelet Count 316 X10*3/uL (160-400); Red Blood Count 4.35 X10*6/uL (4.20-5.50); Red Cell Distribution Width 21.4 % (11.0-16.0); White Blood Count 6.8 X10*3/uL (4.8-10.8)
== END 2024-04-22 13:34 | disposition home or self-care (01) ==
LOC: HO.LABR 13:33
PROVIDERS: Visit Provider Psychiatry & Neurology Psychiatry
DX: Z79.899 Other long term (current) drug therapy (principal)
CPT/HCPCS: 36415; 85025

== ENCOUNTER 2024-04-24 22:06 | Emergency (ER) | payer MEDICARE, MEDICAID, SELFPAY ==
[2024-04-24 22:11] VITALS: BP 146/73; PULSE 132; O2SAT 95
[2024-04-24 22:17] VITALS: BP 140/86; PULSE 129; RESP 18; TEMP 36.5; O2SAT 94
[2024-04-24 22:41] VITALS: BP 135/82; PULSE 124; RESP 23; TEMP 37; O2SAT 94; BMI 41.8
--- NOTE | 2024-04-24 23:28 | ED.SOB ---
HPI - SOB/Dyspnea General Chief Complaint: Dyspnea Stated Complaint: SOB WHEEZING Time Seen by Provider: 04/24/24 23:23 Source: patient and EMS Mode of arrival: EMS Limitations: no limitations History of Present Illness ED Provider: Dr. Eileen Ryan HPI Narrative: Patient comes to the emergency room complaining of an asthma exacerbation. Patient states that she was given a nebulization treatment in the ambulance and once she arrived to the emergency room, she has no longer wheezing or short of breath. Related Data Home Medications ?Medication ?Instructions ?Recorded ?Confirmed fluoxetine 40 mg capsule 80 mg PO DAILY 08/25/23 04/12/24 lorazepam 0.5 mg tablet 0.5 mg PO BID PRN Anxiety 08/31/23 04/12/24 albuterol sulfate 90 mcg/actuation 2 inh inhalation Q4H PRN Shortness 09/17/23 04/12/24 aerosol inhaler (Ventolin HFA) Of Breath Or Wheezing famotidine 10 mg tablet 10 mg PO BID@0630,1630 09/17/23 04/12/24 montelukast 10 mg tablet 10 mg PO BEDTIME 09/17/23 04/12/24 atorvastatin 10 mg tablet 10 mg PO DAILY 10/04/23 04/12/24 benztropine 1 mg tablet 1 mg PO BID 10/04/23 04/12/24 metformin 500 mg tablet 500 mg PO BID 10/04/23 04/12/24 pantoprazole 40 mg tablet,delayed 40 mg PO DAILY@0630 10/04/23 04/12/24 release fluticasone 250 mcg-salmeterol 50 1 ea inhalation BID 11/18/23 04/12/24 mcg/dose blistr powdr for inhalation lisinopril 5 mg tablet 5 mg PO DAILY blood pressure 11/18/23 04/12/24 prazosin 2 mg capsule 4 mg PO BEDTIME 11/18/23 04/12/24 buspirone 10 mg tablet 10 mg PO BID 01/09/24 04/12/24 fluphenazine HCl 5 mg tablet 5 mg PO BID 01/09/24 04/12/24 mirtazapine 15 mg tablet 15 mg PO BEDTIME 01/09/24 04/12/24 Previous Rx's ?Medication ?Instructions ?Recorded haloperidol 5 mg tablet 5 mg PO TID@0900,1530,2100 30 days 11/29/23 #90 tabs lactulose 20 gram/30 mL oral 20 g (30 mL) PO DAILY PRN 11/29/23 solution constipation 30 days #1,200 mL clozapine 25 mg tablet (Clozaril) 75 mg (3 x 25 mg) PO BEDTIME 3 12/23/23 weeks #63 tabs albuterol sulfate 0.63 mg/3 mL 0.63 mg (3 mL) inhalation Q6H #90 04/19/24 solution for nebulization mL nebulizer accessories (Reusable #1 ea 04/19/24 Nebulizer Kit) Allergies Allergy/AdvReac Type Severity Reaction Status Date / Time azithromycin [AZITHROMYCIN] Allergy Severe Rash Verified 04/24/24 22:43 Fish Containing Products Allergy Severe Anaphylaxis Verified 04/24/24 22:43 codeine [Codeine] Allergy Intermediate Rash Verified 04/24/24 22:43 Penicillins Allergy Intermediate Rash Verified 04/24/24 22:43 prednisone [Prednisone] Allergy Intermediate Rash Verified 04/24/24 22:43 Sulfa (Sulfonamide Allergy Intermediate Rash Verified 04/24/24 22:43 Antibiotics) [Sulfa (Sulfonamides)] ziprasidone [From Geodon] Allergy Intermediate dysuria, Verified 04/24/24 22:43 rash lithium Allergy Rash Verified 04/24/24 22:43 Review of Systems Review of Systems: Constitutional : No Weight loss, No Fever, No Chills, No Night Sweats, No Fatigue, No Malaise ENT/Mouth : No Hearing loss, No Ear Pain, No Nasal Congestion, No Sinus Pain, No Hoarseness, No sore throat, No Rhinorrhea, No Swallowing Difficulty Eyes: No Eye Pain, No Swelling, No Redness, No Foreign Body, No Discharge, No Vision Changes Cardiovascular : No Chest Pain, No SOB, No Dyspnea on Exertion, No Orthopnea, No Edema, No Palpitations Respiratory : Complaining of cough and wheezing, no dyspnea Gastrointestinal : No Nausea, No Vomiting, No Diarrhea, No Constipation, No abdominal Pain, No Hematochezia, No Melena Genitourinary : no irregular bleeding, No Dysuria, No Urinary Frequency, No Hematuria, No Urinary Incontinence, No Urgency, No Flank Pain, No Urinary Flow Changes, No Hesitancy Musculoskeletal : No joint pain, No Myalgias, No Joint Swelling Skin : No Skin Lesions, No rash Neuro : No Weakness, No Numbness, No Paresthesias, No Loss of Consciousness, No Dizziness, No Headache Psych : No Anxiety/Panic, No Depression, No SI/HI/AH/VH, No Social Issues, Heme/Lymph: No Bruising, No Bleeding,No Lymphadenopathy Endocrine : No Polyuria, No Polydipsia, No Temperature Intolerance [facility] Past Medical History Medical History Suicidal ideation MDD (major depressive disorder), recurrent episode, severe Chest pain Acute anxiety COVID-19 Full body hives Major depression Dizziness Suicide attempt UTI (urinary tract infection) Acetaminophen overdose COVID History of attempted suicide History of non-suicidal self-harm Hypomagnesemia Suicide attempt Suicide attempt by acetaminophen overdose Acetaminophen overdose Depression Diabetes type 2, controlled Borderline personality disorder PTSD (post-traumatic stress disorder) Overdose GERD (gastroesophageal reflux disease) Mood disorder Hyperlipidemia Bronchitis Social History Social History Household Members: None Household Members Other:: care home Housing: Other Housing Other:: Detention Do you presently have visiting nurse or other home services: No Unable to assess alcohol history related to: Unknown Alcohol intake: former Comment: sitter in room Patient Tobacco Use Status: Former Tobacco user Tobacco use type: Cigarette Cigarette Packs Per Day: 1 Cigarettes Per Day: 20.0 Years Smoked: 22 Smoked in Last 30 Days: Yes e-Cigarette/Vaping Use: Never Used Second Hand Smoke Exposure: No Use of substances other than those prescribed or required for medical reasons: No Substance Use Type: Marijuana Advance Directives: No Advance Directives Information Provided: Yes Do you have a plan to hurt others: No Plan Patient : No service: No Current occupational status: unemployed and disabled Sexual orientation: Straight/Heterosexual Physical Exam Vital Signs: Vital Signs: Last Vital Signs Temp 98.6 F 04/24/24 22:41 Pulse 124 H 04/24/24 22:41 Resp 23 H 04/24/24 22:41 BP 135/82 04/24/24 22:41 Pulse Ox 94 04/24/24 22:41 O2 Del Method Room Air 04/24/24 22:41 BMI result Body Mass Index 41.8 Const: Other: Appearance: Alert. Oriented X3. No acute distress. Eyes: Pupils equal, round and reactive to light. ENT: Pharynx normal. Neck: Normal inspection. Neck supple. No lymph nodes noted. No crepitus CVS: Normal heart rate and rhythm. Pulses normal. Normal S1 and S2 Respiratory: No respiratory distress. Breath sounds normal. No Wheezing. No rales Abdomen: Soft and nontender. No rigidity. No distention. Skin: Skin warm and dry. Normal skin color. Normal skin turgor. Extremities: No lower extremity edema. No Lacerations. No Rash Neuro: Oriented X 3. No motor deficit. No sensory deficit. Moving all extremities. No slurred speech. CN 2 through 12 grossly intact Psych: calm, cooperative, normal affect Medical Decision Making Medical Decision Making MDM Narrative: Patient received a nebulization treatments given by EMS. At this time, patient's physical exam is normal, no wheezing, good air movement, oxygen saturation 96% on room air. -patient states that she is allergic to prednisone, gives her rash. -patient states that she has enough albuterol at home. Discharge Plan Discharge Clinical Impression: Asthma Patient Disposition: Home, Self-Care Instructions: Asthma (ED) Additional Instructions: Please follow-up with your primary care physician tomorrow. If you have any worsening or new symptoms, please return to the emergency room or call 911 Prescriptions: No Action fluoxetine 40 mg capsule 80 mg PO DAILY lorazepam 0.5 mg tablet 0.5 mg PO BID PRN (Reason: Anxiety) fluticasone propion-salmeterol 250-50 mcg/dose blister with device 1 ea inhalation BID lisinopril 5 mg tablet 5 mg PO DAILY prazosin 2 mg capsule 4 mg PO BEDTIME haloperidol 5 mg Tablet 5 mg PO TID@0900,1530,2100 30 Days Qty: 90 0RF lactulose 20 gram/30 mL Solution 20 g PO DAILY PRN (Reason: constipation) 30 Days Qty: 1200 0RF clozapine [Clozaril] 25 mg tablet 75 mg PO BEDTIME 21 Days Qty: 63 0RF famotidine 10 mg Tablet 10 mg PO BID@0630,1630 albuterol sulfate [Ventolin HFA] 90 mcg/actuation HFA aerosol inhaler 2 inh inhalation Q4H PRN (Reason: Shortness Of Breath Or Wheezing) montelukast 10 mg tablet 10 mg PO BEDTIME metformin 500 mg tablet 500 mg PO BID atorvastatin 10 mg tablet 10 mg PO DAILY pantoprazole 40 mg tablet,delayed release (DR/EC) 40 mg PO DAILY@0630 benztropine 1 mg tablet 1 mg PO BID buspirone [BuSpar] 10 mg Tablet 10 mg PO BID mirtazapine 15 mg Tablet 15 mg PO BEDTIME fluphenazine HCl 5 mg tablet 5 mg PO BID (DME) Reusable Nebulizer Kit Kit See Rx Instructions .Route Qty: 1 0RF Rx Instructions: As directed albuterol sulfate 0.63 mg/3 mL solution for nebulization 0.63 mg inhalation Q6H Qty: 90 0RF Print Language: Israeli
[2024-04-24 23:43] VITALS: BP 154/90; PULSE 123; RESP 16; TEMP 37.1; O2SAT 93
== END 2024-04-25 00:16 | disposition home or self-care (01) ==
PROVIDERS: Emergency Provider Emergency Medicine
DX: J45.909 Unspecified asthma, uncomplicated (principal); R06.02 Shortness of breath; Z87.891 Personal history of nicotine dependence
CPT/HCPCS: 99282; 99284

== ENCOUNTER 2024-04-27 18:46 | Emergency (ER) | payer MEDICARE, MEDICAID, SELFPAY ==
[2024-04-27 18:52] VITALS: BP 138/81; PULSE 102; O2SAT 98; BMI 37.6
[2024-04-27 19:07] VITALS: BP 144/91; PULSE 107; RESP 19; TEMP 36.9; O2SAT 95
--- NOTE | 2024-04-27 19:11 | ECG_ITS ---
Test Reason : CHEST PAIN Blood Pressure : / mmHG Vent. Rate : 102 BPM Atrial Rate : 102 BPM P-R Int : 156 ms QRS Dur : 080 ms QT Int : 348 ms P-R-T Axes : 047 033 047 degrees QTc Int : 453 ms Sinus tachycardia Possible Left atrial enlargement Borderline ECG When compared with ECG of 19-APR-2024 18:29, No significant change was found Referred By: Milton Stevens Electronically Signed By:DONALD HOOKER MD
--- NOTE | 2024-04-27 19:23 | ED_ITS ---
HPI - General Adult General Chief complaint: Behavioral Concerns Stated complaint: diff breathing, from GH, possible panic attack Time Seen by Provider: 04/27/24 19:04 Source: patient, RN notes reviewed and old records reviewed Mode of arrival: EMS Limitations: no limitations History of Present Illness ED Provider: Hilda HPI narrative: 48-year-old female with past medical history significant for depression, PTSD, GERD, diabetes, borderline personality disorder, hyperlipidemia presents for evaluation of chest pain. Patient reports chest pain for last 2 hours that she states is right in the center of her chest pain The pain does not radiate. She reports intermittent shortness of breath Denies any fevers, chills, cough. Her pain is currently 7/10 and stabbing in nature She does not know if this may be related to ?a panic attack. ? Related Data Home Medications ?Medication ?Instructions ?Recorded ?Confirmed fluoxetine 40 mg capsule 80 mg PO DAILY 08/25/23 04/12/24 lorazepam 0.5 mg tablet 0.5 mg PO BID PRN Anxiety 08/31/23 04/12/24 albuterol sulfate 90 mcg/actuation 2 inh inhalation Q4H PRN Shortness 09/17/23 04/12/24 aerosol inhaler (Ventolin HFA) Of Breath Or Wheezing famotidine 10 mg tablet 10 mg PO BID@0630,1630 09/17/23 04/12/24 montelukast 10 mg tablet 10 mg PO BEDTIME 09/17/23 04/12/24 atorvastatin 10 mg tablet 10 mg PO DAILY 10/04/23 04/12/24 benztropine 1 mg tablet 1 mg PO BID 10/04/23 04/12/24 metformin 500 mg tablet 500 mg PO BID 10/04/23 04/12/24 pantoprazole 40 mg tablet,delayed 40 mg PO DAILY@0630 10/04/23 04/12/24 release fluticasone 250 mcg-salmeterol 50 1 ea inhalation BID 11/18/23 04/12/24 mcg/dose blistr powdr for inhalation lisinopril 5 mg tablet 5 mg PO DAILY blood pressure 11/18/23 04/12/24 prazosin 2 mg capsule 4 mg PO BEDTIME 11/18/23 04/12/24 buspirone 10 mg tablet 10 mg PO BID 01/09/24 04/12/24 fluphenazine HCl 5 mg tablet 5 mg PO BID 01/09/24 04/12/24 mirtazapine 15 mg tablet 15 mg PO BEDTIME 01/09/24 04/12/24 Previous Rx's ?Medication ?Instructions ?Recorded haloperidol 5 mg tablet 5 mg PO TID@0900,1530,2100 30 days 11/29/23 #90 tabs lactulose 20 gram/30 mL oral 20 g (30 mL) PO DAILY PRN 11/29/23 solution constipation 30 days #1,200 mL clozapine 25 mg tablet (Clozaril) 75 mg (3 x 25 mg) PO BEDTIME 3 12/23/23 weeks #63 tabs albuterol sulfate 0.63 mg/3 mL 0.63 mg (3 mL) inhalation Q6H #90 04/19/24 solution for nebulization mL nebulizer accessories (Reusable #1 ea 04/19/24 Nebulizer Kit) Allergies Allergy/AdvReac Type Severity Reaction Status Date / Time azithromycin [AZITHROMYCIN] Allergy Severe Rash Verified 04/27/24 18:54 Fish Containing Products Allergy Severe Anaphylaxis Verified 04/27/24 18:54 codeine [Codeine] Allergy Intermediate Rash Verified 04/27/24 18:54 Penicillins Allergy Intermediate Rash Verified 04/27/24 18:54 prednisone [Prednisone] Allergy Intermediate Rash Verified 04/27/24 18:54 Sulfa (Sulfonamide Allergy Intermediate Rash Verified 04/27/24 18:54 Antibiotics) [Sulfa (Sulfonamides)] ziprasidone [From Geodon] Allergy Intermediate dysuria, Verified 04/27/24 18:54 rash lithium Allergy Rash Verified 04/27/24 18:54 Review of Systems 2 Constitutional: Constitutional: Denies body ache(s), Denies chills, Denies fever(s) and Denies headache(s) Eyes: Eyes: Denies blurry vision ENT: Denies vertigo and Denies headache(s) Cardiovascular: Cardiovascular: Reports chest pain, Reports chest pain at rest and Reports dyspnea Respiratory: Respiratory: Denies cough and Reports dyspnea Gastrointestinal: Gastrointestinal: Denies abdominal pain, Denies nausea and Denies vomiting Musculoskeletal: Musculoskeletal: Denies back pain Neurologic: Denies vertigo and Denies headache(s) Psychiatric: Psychiatric: Reports anxiety, Denies depression, Denies auditory hallucinations and Denies suicidal ideation PMFSH Past Medical History Medical History Suicidal ideation MDD (major depressive disorder), recurrent episode, severe Chest pain Acute anxiety COVID-19 Full body hives Major depression Dizziness Suicide attempt UTI (urinary tract infection) Acetaminophen overdose COVID History of attempted suicide History of non-suicidal self-harm Hypomagnesemia Suicide attempt Suicide attempt by acetaminophen overdose Acetaminophen overdose Depression Diabetes type 2, controlled Borderline personality disorder PTSD (post-traumatic stress disorder) Overdose GERD (gastroesophageal reflux disease) Mood disorder Hyperlipidemia Bronchitis Social History Social History Household Members: None Household Members Other:: [facility] Housing: Other Housing Other:: Snf Do you presently have visiting nurse or other home services: No Unable to assess alcohol history related to: Unknown Alcohol intake: former Comment: sitter in room Patient Tobacco Use Status: Former Tobacco user Tobacco use type: Cigarette Cigarette Packs Per Day: 1 Cigarettes Per Day: 20.0 Years Smoked: 22 e-Cigarette/Vaping Use: Never Used Second Hand Smoke Exposure: No Substance Use Type: Marijuana Advance Directives: No Advance Directives Information Provided: No Do you have a plan to hurt others: No Plan service: No Current occupational status: unemployed and disabled Sexual orientation: Straight/Heterosexual Physical Exam ED Vital Signs: Vital Signs - 24 hr 04/27/24 18:52 04/27/24 19:07 Temperature 98.4 F Pulse Rate 107 H Respiratory Rate 19 Blood Pressure 144/91 H Pulse Oximetry 95 Oxygen Delivery Method Room Air Room Air BMI result Body Mass Index 37.6 Const General: healthy appearing, comfortable, no acute distress, alert and awake Nutritional Appearance: well nourished Orientation/consciousness: patient oriented x3 HENMT Head: Yes normocephalic and Yes atraumatic Throat: Yes posterior oropharynx normal Eyes Eyelids: Yes eyelids normal Conjunctivae: conjunctivae normal Sclerae: sclerae normal Corneas: corneas normal Pupils: Equal, round and reactive pupils present EOM: EOMs intact bilaterally Neck Neck: Yes full ROM Resp Effort & Inspection: normal respiratory effort, able to speak in complete sentences, no audible wheezes and not labored Auscultation: clear to auscultation bilaterally Cardio Rate: regular rate Rhythm: regular rhythm GI Inspection: No distended Palpation (GI): Soft to palpation, not firm, nontender, no guarding and not rigid Skin General skin exam: elasticity normal Neuro General: patient oriented x3 Cranial nerves: Yes Equal, round and reactive pupils present and Yes Bilaterally intact EOM present Cognition (Neuro): normal cognition Extrem Other: Moving all extremities well without any obvious deformities Course Reevaluation(s) Reevaluation #1: Patient reports feeling better, her workup was unremarkable, she rules out for ACS as she has had intermittent chest pain for several hours and a negative troponin. Time: 20:19 Medical Decision Making Medical Decision Making [facility] Narrative: 48-year-old female presents for evaluation of chest pain. She does have several risk factors for ACS including hyperlipidemia, obesity, diabetes. Plan for EKG, labs including troponin. Patient is comfortable appearing Differential Diagnosis Differential Diagnoses: The differential diagnosis associated with the presentation includes Anxiety Chest pain Chest wall pain Costochondritis ACS less likely Lab Data 04/27/24 19:42 04/27/24 19:42 Labs: Lab Results 04/27/24 Range/Units 19:42 WBC 7.1 (4.8-10.8) X10*3/uL RBC 4.36 (4.20-5.50) X10*6/uL Hgb 12.5 (12.0-16.0) g/dl Hct 37.7 (37.0-47.0) % MCV 86.5 (80.0-98.0) fL MCH 28.7 (27.0-33.0) pg MCHC 33.2 (31.0-35.0) g/dl RDW 20.7 H (11.0-16.0) % Plt Count 306 (160-400) X10*3/uL MPV 9.0 L (9.4-12.3) fL Immature Gran % (Auto) 0.4 (0.0-0.4) % Neut % (Auto) 62.9 (45-73) % Lymph % (Auto) 22.7 (20-40) % [place] % (Auto) 9.4 (2-11) % Eos % (Auto) 4.2 H (0-4) % Baso % (Auto) 0.4 (0-2) % Lymph # (Auto) 1.6 (1.2-4.9) X10*3/uL [place] # (Auto) 0.7 (0.1-1.2) X10*3/uL Eos # (Auto) 0.3 (0.0-0.4) X10*3/uL Baso # (Auto) 0.0 (0.0-0.2) X10*3/uL Abs Immat Gran (auto) 0.03 (0.00-0.03) X10*3/uL Absolute Neuts (auto) 4.5 (2.0-8.3) x10*3/uL Absolute Nucleated RBC 0.000 (0.0-0.012) X10*3/uL Nucleated RBC % (auto) 0.0 (0.0-0.2) /100WBC Sodium 140 (135-145) mmol/L Potassium 4.0 (3.3-5.1) mmol/L Chloride 103 (96-108) mmol/L Carbon Dioxide 25 (22-29) mmol/L Anion Gap 16 (12-20) BUN 10 (9-16) mg/dL Creatinine 0.68 (0.5-1.4) mg/dL Estim Creat Clear Calc 122.7 Estimated GFR > 60 Random Glucose 101 (60-115) mg/dL Calcium 9.9 (8.4-10.2) mg/dL Total Bilirubin 0.2 (0.0-1.0) mg/dL AST 21 (5-31) U/L ALT 25 (0-31) U/L Alkaline Phosphatase 142 H (39-117) U/L Troponin I High Sens < 2.7 (<3.5-17.0) ng/L Total Protein 7.0 (6.5-8.0) g/dL Albumin 4.4 (3.5-5.0) g/dL Lipase 15 (8-78) U/L Independent Interpretation I performed an independent interpretation of an: EKG Interpretation: Sinus tachycardia rate of [address] segment changes Discharge Plan Discharge Clinical Impression: Chest pain Patient Disposition: Home, Self-Care Instructions: Chest Pain (ED) Additional Instructions: Your workup in the ER today was reassuring. Take all your medications as prescribed Follow-up with your primary doctor Prescriptions: No Action fluoxetine 40 mg capsule 80 mg PO DAILY lorazepam 0.5 mg tablet 0.5 mg PO BID PRN (Reason: Anxiety) fluticasone propion-salmeterol 250-50 mcg/dose blister with device 1 ea inhalation BID lisinopril 5 mg tablet 5 mg PO DAILY prazosin 2 mg capsule 4 mg PO BEDTIME haloperidol 5 mg Tablet 5 mg PO TID@0900,1530,2100 30 Days Qty: 90 0RF lactulose 20 gram/30 mL Solution 20 g PO DAILY PRN (Reason: constipation) 30 Days Qty: 1200 0RF clozapine [Clozaril] 25 mg tablet 75 mg PO BEDTIME 21 Days Qty: 63 0RF famotidine 10 mg Tablet 10 mg PO BID@0630,1630 albuterol sulfate [Ventolin HFA] 90 mcg/actuation HFA aerosol inhaler 2 inh inhalation Q4H PRN (Reason: Shortness Of Breath Or Wheezing) montelukast 10 mg tablet 10 mg PO BEDTIME metformin 500 mg tablet 500 mg PO BID atorvastatin 10 mg tablet 10 mg PO DAILY pantoprazole 40 mg tablet,delayed release (DR/EC) 40 mg PO DAILY@0630 benztropine 1 mg tablet 1 mg PO BID buspirone [BuSpar] 10 mg Tablet 10 mg PO BID mirtazapine 15 mg Tablet 15 mg PO BEDTIME fluphenazine HCl 5 mg tablet 5 mg PO BID (DME) Reusable Nebulizer Kit Kit See Rx Instructions .Route Qty: 1 0RF Rx Instructions: As directed albuterol sulfate 0.63 mg/3 mL solution for nebulization 0.63 mg inhalation Q6H Qty: 90 0RF Print Language: Azeri
[2024-04-27 19:46] LABS: MANUAL DIFF FLAG NO
[2024-04-27 19:47] LABS: Basophils Percent Auto 0.4 % (0-2); Eosinophils Absolute Auto 0.3 X10*3/uL (0.0-0.4); Eosinophils Percent Auto 4.2 % (0-4); Hematocrit 37.7 % (37.0-47.0); Hemoglobin 12.5 g/dl (12.0-16.0); Imm Gran Abs Auto 0.03 X10*3/uL (0.00-0.03); Imm Gran Pct Auto 0.4 % (0.0-0.4); Lymphocytes Absolute Auto 1.6 X10*3/uL (1.2-4.9); Lymphocytes Percent Auto 22.7 % (20-40); Mean Corpuscular HGB Conc 33.2 g/dl (31.0-35.0); Mean Corpuscular Hemoglobin 28.7 pg (27.0-33.0); Mean Corpuscular Volume 86.5 fL (80.0-98.0); Monocytes Absolute Auto 0.7 X10*3/uL (0.1-1.2); Monocytes Percent Auto 9.4 % (2-11); Neutrophils Absolute Auto 4.5 x10*3/uL (2.0-8.3); Neutrophils Percent Auto 62.9 % (45-73); Platelet Count 306 X10*3/uL (160-400); Red Blood Count 4.36 X10*6/uL (4.20-5.50); Red Cell Distribution Width 20.7 % (11.0-16.0); White Blood Count 7.1 X10*3/uL (4.8-10.8)
[2024-04-27 20:03] LABS: Alanine Aminotransferase 25 U/L (0-31); Albumin Level 4.4 g/dL (3.5-5.0); Alkaline Phosphatase 142 U/L (39-117); Anion Gap 16 (12-20); Aspartate Amino Transferase 21 U/L (5-31); Bilirubin Total 0.2 mg/dL (0.0-1.0); Blood Urea Nitrogen 10 mg/dL (9-16); Calcium 9.9 mg/dL (8.4-10.2); Carbon Dioxide 25 mmol/L (22-29); Chloride 103 mmol/L (96-108); Creatinine Clr Calc Pharmacy 122.7; Estimated Glomerular Filt Rate > 60; Glucose Random 101 mg/dL (60-115); Lipase 15 U/L (8-78); Sodium 140 mmol/L (135-145)
[2024-04-27 20:16] LABS: Troponin-I High Sensitivity < 2.7 ng/L (<3.5-17.0)
[2024-04-27 20:20] LABS: Appearance Urine Clear; Color Urine Yellow; Glucose Urine UA Negative (Negative); Leukocyte Esterase Urine Negative (Negative); Nitrite Urine Negative (Negative); PH 6.5 (5.0-9.0); Specific Gravity - Urine <= 1.005 (1.005-1.025); Urine Blood Negative (Negative); Urine Ketones Negative (Negative); Urine Protein Negative (Neg-Trace)
--- NOTE | 2024-04-27 20:22 | PC.NURSE ---
Pt reporting she is no longer having any symptoms and is feeling better and would like to be d/c, lab work is back, d/c order in. intermediate called to come pick pt up at this time
[2024-04-27 20:25] LABS: Bacteria Urine None Seen (None Seen); Hyaline Casts Urine 0-2 /LPF (0-2); RBC Urine 0-2 /HPF (0-2); Squamous Epithelial Cell Urine 0-2 /HPF (0-2); WBC Urine 0-5 /HPF (0-5)
[2024-04-27 20:29] LABS: Amphetamine Screen Urine Not Detected (Not Detect); Barbiturates, Urine Not Detected (Not Detect); Benzodiazepines Screen Urine Not Detected (Not Detect); Buprenorphine Scr Not Detected (Not Detect); Cannabinoid Screen Urine Not Detected (Not Detect); Cocaine Screen Urine Not Detected (Not Detect); Fentanyl, urine Not Detected (Not Detect); Methadone Screen, Urine Not Detected (Not Detect); Opiate Screen Urine Not Detected (Not Detect); Oxycodone Screen Urine Not Detected (Not Detect); Phencyclidine Screen Urine Not Detected (Not Detect)
[2024-04-27 21:29] VITALS: BP 144/91; PULSE 107; RESP 19; TEMP 36.9; O2SAT 95
== END 2024-04-27 21:07 | disposition home or self-care (01) ==
PROVIDERS: Physician Assistant; Emergency Provider Internal Medicine
DX: R07.89 Other chest pain (principal); R06.02 Shortness of breath; F43.10 Post-traumatic stress disorder, unspecified; R05.9 Cough, unspecified; Z51.81 Encounter for therapeutic drug level monitoring; Z79.899 Other long term (current) drug therapy; Z87.891 Personal history of nicotine dependence
CPT/HCPCS: 36415; 80053; 80307; 81001; 83690; 84484; 85025; 93005; 99284

== ENCOUNTER → 2024-04-27 19:11 | Outpatient (BNV) | payer MEDICARE, MEDICAID, SELFPAY | PROVIDERS: Emergency Provider Internal Medicine; Visit Provider Internal Medicine Cardiovascular Disease | DX: R07.9 Chest pain, unspecified (principal) | CPT/HCPCS: 93010 ==

== ENCOUNTER 2024-04-29 10:53 | Outpatient (REF) | payer MEDICARE, MEDICAID, SELFPAY ==
[2024-04-29 11:53] LABS: Basophils Percent Auto 0.6 % (0-2); Eosinophils Absolute Auto 0.2 X10*3/uL (0.0-0.4); Eosinophils Percent Auto 3.2 % (0-4); Hematocrit 40.5 % (37.0-47.0); Imm Gran Abs Auto 0.04 X10*3/uL (0.00-0.03); Imm Gran Pct Auto 0.6 % (0.0-0.4); Lymphocytes Absolute Auto 1.3 X10*3/uL (1.2-4.9); Lymphocytes Percent Auto 18.4 % (20-40); MANUAL DIFF FLAG SCAN; Mean Corpuscular HGB Conc 32.1 g/dl (31.0-35.0); Mean Corpuscular Hemoglobin 28.8 pg (27.0-33.0); Mean Corpuscular Volume 89.6 fL (80.0-98.0); Monocytes Absolute Auto 0.7 X10*3/uL (0.1-1.2); Monocytes Percent Auto 9.3 % (2-11); Neutrophils Absolute Auto 4.9 x10*3/uL (2.0-8.3); Neutrophils Percent Auto 67.9 % (45-73); PLT CLUMP 1; Red Blood Count 4.52 X10*6/uL (4.20-5.50); Red Cell Distribution Width 20.3 % (11.0-16.0); SCAN SMEAR FLAG 1
[2024-04-29 12:11] LABS: Mean Platelet Volume 9.8 fL (9.4-12.3); Platelet Count 258 X10*3/uL (160-400); White Blood Count 7.2 X10*3/uL (4.8-10.8)
[2024-04-29 12:12] LABS: SLIDE REVIEW VERIFIED
== END 2024-04-29 10:54 | disposition home or self-care (01) ==
LOC: HO.LABR 10:53
PROVIDERS: PCP Nurse Practitioner Family; Visit Provider Psychiatry & Neurology Psychiatry
DX: Z79.899 Other long term (current) drug therapy (principal)
CPT/HCPCS: 36415; 85025

== ENCOUNTER 2024-04-30 01:48 | Emergency (ER) | payer MEDICARE, MEDICAID, SELFPAY ==
--- NOTE | ~2024-04-30 | XR_ITS ---
EXAMINATION: XR CHEST CLINICAL INFORMATION: Dyspnea. COMPARISON: 04/19/2024. TECHNIQUE: Frontal view of the chest was obtained. FINDINGS: No significant abnormality is noted involving the heart, lungs, mediastinum, bony thorax or soft tissues. XR/XR chest 1V IMPRESSION: Unremarkable examination.
[2024-04-30 01:51] VITALS: BP 105/52; BP 152/89; PULSE 115; PULSE 116; RESP 23; TEMP 36.7; O2SAT 93; O2SAT 95; BMI 42.0
--- NOTE | 2024-04-30 01:55 | ED_ITS ---
HPI - Asthma General Chief Complaint: Dyspnea Stated Complaint: difficulty breathing Time Seen by Provider: 04/30/24 01:53 Source: patient, EMS and old records reviewed Mode of arrival: EMS Limitations: no limitations History of Present Illness ED Provider: LILIA KIRBY Narrative: 48 yo female with PMH of multiple SI attempts, borderline personality disorder, retirement smoker, HLD, GERD, bronchitis here with c/o waking up coughing and wheezing - no recent fevers or sputum production. She tried INH no relief EMS gave duoneb and she feels much better. She cannot take prednisone. MD complaint: asthma attack , shortness of breath and wheezing Onset (ago): hour(s) (1) Severity: moderate Context: none known Associated symptoms: dry cough Asthma History: adult onset Treatments Prior to Arrival: inhaled bronchodilator Related Data Home Medications ?Medication ?Instructions ?Recorded ?Confirmed fluoxetine 40 mg capsule 80 mg PO DAILY 08/25/23 04/12/24 lorazepam 0.5 mg tablet 0.5 mg PO BID PRN Anxiety 08/31/23 04/12/24 albuterol sulfate 90 mcg/actuation 2 inh inhalation Q4H PRN Shortness 09/17/23 04/12/24 aerosol inhaler (Ventolin HFA) Of Breath Or Wheezing famotidine 10 mg tablet 10 mg PO BID@0630,1630 09/17/23 04/12/24 montelukast 10 mg tablet 10 mg PO BEDTIME 09/17/23 04/12/24 atorvastatin 10 mg tablet 10 mg PO DAILY 10/04/23 04/12/24 benztropine 1 mg tablet 1 mg PO BID 10/04/23 04/12/24 metformin 500 mg tablet 500 mg PO BID 10/04/23 04/12/24 pantoprazole 40 mg tablet,delayed 40 mg PO DAILY@0630 10/04/23 04/12/24 release fluticasone 250 mcg-salmeterol 50 1 ea inhalation BID 11/18/23 04/12/24 mcg/dose blistr powdr for inhalation lisinopril 5 mg tablet 5 mg PO DAILY blood pressure 11/18/23 04/12/24 prazosin 2 mg capsule 4 mg PO BEDTIME 11/18/23 04/12/24 buspirone 10 mg tablet 10 mg PO BID 01/09/24 04/12/24 fluphenazine HCl 5 mg tablet 5 mg PO BID 01/09/24 04/12/24 mirtazapine 15 mg tablet 15 mg PO BEDTIME 01/09/24 04/12/24 Previous Rx's ?Medication ?Instructions ?Recorded haloperidol 5 mg tablet 5 mg PO TID@0900,1530,2100 30 days 11/29/23 #90 tabs lactulose 20 gram/30 mL oral 20 g (30 mL) PO DAILY PRN 11/29/23 solution constipation 30 days #1,200 mL clozapine 25 mg tablet (Clozaril) 75 mg (3 x 25 mg) PO BEDTIME 3 12/23/23 weeks #63 tabs albuterol sulfate 0.63 mg/3 mL 0.63 mg (3 mL) inhalation Q6H #90 04/19/24 solution for nebulization mL nebulizer accessories (Reusable #1 ea 04/19/24 Nebulizer Kit) Allergies Allergy/AdvReac Type Severity Reaction Status Date / Time azithromycin [AZITHROMYCIN] Allergy Severe Rash Verified 04/30/24 01:56 Fish Containing Products Allergy Severe Anaphylaxis Verified 04/30/24 01:56 codeine [Codeine] Allergy Intermediate Rash Verified 04/30/24 01:56 Penicillins Allergy Intermediate Rash Verified 04/30/24 01:56 prednisone [Prednisone] Allergy Intermediate Rash Verified 04/30/24 01:56 Sulfa (Sulfonamide Allergy Intermediate Rash Verified 04/30/24 01:56 Antibiotics) [Sulfa (Sulfonamides)] ziprasidone [From Geodon] Allergy Intermediate dysuria, Verified 04/30/24 01:56 rash lithium Allergy Rash Verified 04/30/24 01:56 Review of Systems Review of Systems: Constitutional : No Fever, No Chills ENT/Mouth : No Hoarseness, No sore throat, No Rhinorrhea Eyes: No Redness, No Discharge, No Vision Changes Cardiovascular : No Chest Pain, positive SOB, positive Dyspnea on Exertion, No Edema Respiratory : positive Cough, No Sputum, positive Wheezing, Gastrointestinal : No Nausea, No Vomiting, No Diarrhea, No abdominal Pain Genitourinary : No Dysuria, No Hematuria Musculoskeletal : No joint pain, No Myalgias Skin : No rash Neuro : No Weakness, No Numbness, No Headache Psych : No anxiety, depression Heme/Lymph: No Bruising, No Bleeding Endocrine : No Polyuria, No Polydipsia All other systems reviewed and are negative PMFSH Past Medical History Attestation statement: The following information was validated with the patient. Source: old records reviewed Medical History Asthma Suicidal ideation MDD (major depressive disorder), recurrent episode, severe Chest pain Acute anxiety COVID-19 Full body hives Major depression Dizziness Suicide attempt UTI (urinary tract infection) Acetaminophen overdose COVID History of attempted suicide History of non-suicidal self-harm Hypomagnesemia Suicide attempt Suicide attempt by acetaminophen overdose Acetaminophen overdose Depression Diabetes type 2, controlled Borderline personality disorder PTSD (post-traumatic stress disorder) Overdose GERD (gastroesophageal reflux disease) Mood disorder Hyperlipidemia Bronchitis Social History Social History Household Members: None Household Members Other:: correction Housing: Other Housing Other:: [facility] Do you presently have visiting nurse or other home services: No Unable to assess alcohol history related to: Unknown Alcohol intake: former Comment: sitter in room Patient Tobacco Use Status: Former Tobacco user Tobacco use type: Cigarette Cigarette Packs Per Day: 1 Cigarettes Per Day: 20.0 Years Smoked: 22 Smoked in Last 30 Days: Yes e-Cigarette/Vaping Use: Never Used Second Hand Smoke Exposure: No Substance Use Type: Marijuana Advance Directives: No Advance Directives Information Provided: Yes Do you have a plan to hurt others: No Plan Patient : No service: No Current occupational status: unemployed and disabled Sexual orientation: Straight/Heterosexual Physical Exam Vital Signs: Vital Signs: Last Vital Signs Temp 98.2 F 04/30/24 02:57 Pulse 108 H 04/30/24 02:57 Resp 6 L 04/30/24 02:57 BP 122/81 04/30/24 02:57 Pulse Ox 93 04/30/24 02:57 O2 Del Method Room Air 04/30/24 02:57 BMI result Body Mass Index 42.0 Appearance: Alert. Oriented X3. No acute distress. Eyes: Pupils equal, round and reactive to light. ENT: Pharynx normal. Neck: Normal inspection. Neck supple. CVS: Normal heart rate and rhythm. Pulses normal. Respiratory: No respiratory distress. Breath sounds normal no wheezing noted Abdomen: Soft and nontender. Skin: Skin warm and dry. Normal skin color. Normal skin turgor. Extremities: No lower extremity edema. No calf ttp Neuro: Oriented X 3. No motor deficit. No sensory deficit. Medical Decision Making Medical Decision Making MDM Narrative: 48 yo female with PMH of multiple SI attempts, borderline personality disorder, retirement smoker, HLD, GERD, bronchitis here with c/o wheezing no cp, no edema at this time will obtain CXR and swabs - she is going to get a neb soon at [facility]. She responded well to duoneb. Will hold steroids as she responded well x 1 dose of neb. Differential Diagnosis Differential Diagnoses: The differential diagnosis associated with the presentation includes asthma, URI Admission/Observation Consideration of admission/observation: Escalation of care including admission/observation considered feels better no hypoxia stable for DC Lab Data MDM Lab Attestation statement: I reviewed the patient's lab results. Labs: Lab Results 04/30/24 Range/Units 02:12 Influenza Type A (PCR) NEGATIVE (Negative) Influenza Type B (PCR) NEGATIVE (Negative) RSV RNA Qual (PCR) NEGATIVE (Negative) SARS-CoV-2 RNA (RT-PCR) NEGATIVE (Negative) Independent Interpretation I performed an independent interpretation of an: Plain X-Ray (normal ) Radiology Impression Discussion of test interpretation with radiology: I have reviewed the radiologist's reading. Independent Historian Clinical information obtained from an independent historian. History obtained from or confirmed by: EMS External Record Review External record reviewed: Inpatient record Prescription Management I considered prescription management with: Other Discharge Plan Discharge Clinical Impression: Acute bronchospasm Patient Disposition: Home, Self-Care Instructions: Bronchospasm (ED) Additional Instructions: return for worsening symptoms take inhalers viral panel and chest xray are negative Prescriptions: No Action fluoxetine 40 mg capsule 80 mg PO DAILY lorazepam 0.5 mg tablet 0.5 mg PO BID PRN (Reason: Anxiety) fluticasone propion-salmeterol 250-50 mcg/dose blister with device 1 ea inhalation BID lisinopril 5 mg tablet 5 mg PO DAILY prazosin 2 mg capsule 4 mg PO BEDTIME haloperidol 5 mg Tablet 5 mg PO TID@0900,1530,2100 30 Days Qty: 90 0RF lactulose 20 gram/30 mL Solution 20 g PO DAILY PRN (Reason: constipation) 30 Days Qty: 1200 0RF clozapine [Clozaril] 25 mg tablet 75 mg PO BEDTIME 21 Days Qty: 63 0RF famotidine 10 mg Tablet 10 mg PO BID@0630,1630 albuterol sulfate [Ventolin HFA] 90 mcg/actuation HFA aerosol inhaler 2 inh inhalation Q4H PRN (Reason: Shortness Of Breath Or Wheezing) montelukast 10 mg tablet 10 mg PO BEDTIME metformin 500 mg tablet 500 mg PO BID atorvastatin 10 mg tablet 10 mg PO DAILY pantoprazole 40 mg tablet,delayed release (DR/EC) 40 mg PO DAILY@0630 benztropine 1 mg tablet 1 mg PO BID buspirone [BuSpar] 10 mg Tablet 10 mg PO BID mirtazapine 15 mg Tablet 15 mg PO BEDTIME fluphenazine HCl 5 mg tablet 5 mg PO BID (DME) Reusable Nebulizer Kit Kit See Rx Instructions .Route Qty: 1 0RF Rx Instructions: As directed albuterol sulfate 0.63 mg/3 mL solution for nebulization 0.63 mg inhalation Q6H Qty: 90 0RF Print Language: Croatian
[2024-04-30 02:54] LABS: Influenza A PCR NEGATIVE (Negative); Influenza B PCR NEGATIVE (Negative); Resp Syncy Virus RNA Qual PCR NEGATIVE (Negative); SARS COV2 PCR INHOUSE NEGATIVE (Negative)
[2024-04-30 02:57] VITALS: BP 122/81; PULSE 108; RESP 6; TEMP 36.8; O2SAT 93
[2024-04-30 04:43] VITALS: BP 147/96; PULSE 110; RESP 20; TEMP 36.9; O2SAT 93
== END 2024-04-30 04:47 | disposition home or self-care (01) ==
PROVIDERS: Emergency Provider Emergency Medicine
DX: J98.01 Acute bronchospasm (principal); R06.02 Shortness of breath; Z03.818 Encounter for observation for suspected exposure to other biological agents ruled out; Z87.891 Personal history of nicotine dependence; R05.9 Cough, unspecified
CPT/HCPCS: 0241U; 71045; 99283; 99284

== ENCOUNTER 2024-05-06 12:03 | Outpatient (REF) | payer MEDICARE, MEDICAID, SELFPAY ==
[2024-05-06 12:31] LABS: MANUAL DIFF FLAG NO
[2024-05-06 13:29] LABS: Basophils Percent Auto 0.6 % (0-2); Eosinophils Absolute Auto 0.2 X10*3/uL (0.0-0.4); Hematocrit 41.5 % (37.0-47.0); Hemoglobin 13.4 g/dl (12.0-16.0); Imm Gran Abs Auto 0.02 X10*3/uL (0.00-0.03); Imm Gran Pct Auto 0.3 % (0.0-0.4); Lymphocytes Absolute Auto 1.6 X10*3/uL (1.2-4.9); Lymphocytes Percent Auto 22.9 % (20-40); Mean Corpuscular HGB Conc 32.3 g/dl (31.0-35.0); Mean Corpuscular Volume 89.8 fL (80.0-98.0); Mean Platelet Volume 9.6 fL (9.4-12.3); Monocytes Absolute Auto 0.6 X10*3/uL (0.1-1.2); Neutrophils Absolute Auto 4.4 x10*3/uL (2.0-8.3); Neutrophils Percent Auto 64.2 % (45-73); Platelet Count 262 X10*3/uL (160-400); Red Blood Count 4.62 X10*6/uL (4.20-5.50); Red Cell Distribution Width 18.6 % (11.0-16.0); White Blood Count 6.9 X10*3/uL (4.8-10.8)
== END 2024-05-06 12:04 | disposition home or self-care (01) ==
LOC: HO.LABR 12:03
PROVIDERS: Visit Provider Psychiatry & Neurology Psychiatry
DX: Z79.899 Other long term (current) drug therapy (principal)
CPT/HCPCS: 36415; 85025

== ENCOUNTER 2024-05-09 03:16 | Emergency (ER) | payer MEDICARE, MEDICAID, SELFPAY ==
--- NOTE | 2024-05-09 03:18 | ED.SOB ---
HPI - SOB/Dyspnea General Chief Complaint: Asthma Stated Complaint: sob Time Seen by Provider: 05/09/24 03:18 Source: patient Mode of arrival: EMS Limitations: no limitations History of Present Illness ED Provider: gem KIRBY Narrative: Patient history of asthma/COPD smoker been here multiple times for psych issues comes here as she woke up in the night with wheezing coughing use her inhaler 2 times came here still wheezing saturating 100% at room air no upper respiratory symptoms cough is mostly dry no fever or chills Related Data Home Medications ?Medication ?Instructions ?Recorded ?Confirmed fluoxetine 40 mg capsule 80 mg PO DAILY 08/25/23 04/12/24 lorazepam 0.5 mg tablet 0.5 mg PO BID PRN Anxiety 08/31/23 04/12/24 albuterol sulfate 90 mcg/actuation 2 inh inhalation Q4H PRN Shortness 09/17/23 04/12/24 aerosol inhaler (Ventolin HFA) Of Breath Or Wheezing famotidine 10 mg tablet 10 mg PO BID@0630,1630 09/17/23 04/12/24 montelukast 10 mg tablet 10 mg PO BEDTIME 09/17/23 04/12/24 atorvastatin 10 mg tablet 10 mg PO DAILY 10/04/23 04/12/24 benztropine 1 mg tablet 1 mg PO BID 10/04/23 04/12/24 metformin 500 mg tablet 500 mg PO BID 10/04/23 04/12/24 pantoprazole 40 mg tablet,delayed 40 mg PO DAILY@0630 10/04/23 04/12/24 release fluticasone 250 mcg-salmeterol 50 1 ea inhalation BID 11/18/23 04/12/24 mcg/dose blistr powdr for inhalation lisinopril 5 mg tablet 5 mg PO DAILY blood pressure 11/18/23 04/12/24 prazosin 2 mg capsule 4 mg PO BEDTIME 11/18/23 04/12/24 buspirone 10 mg tablet 10 mg PO BID 01/09/24 04/12/24 fluphenazine HCl 5 mg tablet 5 mg PO BID 01/09/24 04/12/24 mirtazapine 15 mg tablet 15 mg PO BEDTIME 01/09/24 04/12/24 Previous Rx's ?Medication ?Instructions ?Recorded haloperidol 5 mg tablet 5 mg PO TID@0900,1530,2100 30 days 02/15/24 #90 tabs lactulose 20 gram/30 mL oral 20 g (30 mL) PO DAILY PRN 11/29/23 solution constipation 30 days #1,200 mL clozapine 25 mg tablet (Clozaril) 75 mg (3 x 25 mg) PO BEDTIME 3 12/23/23 weeks #63 tabs albuterol sulfate 0.63 mg/3 mL 0.63 mg (3 mL) inhalation Q6H #90 04/19/24 solution for nebulization mL nebulizer accessories (Reusable #1 ea 04/19/24 Nebulizer Kit) Allergies Allergy/AdvReac Type Severity Reaction Status Date / Time azithromycin [AZITHROMYCIN] Allergy Severe Rash Verified 05/09/24 03:29 Fish Containing Products Allergy Severe Anaphylaxis Verified 05/09/24 03:29 codeine [Codeine] Allergy Intermediate Rash Verified 05/09/24 03:29 Penicillins Allergy Intermediate Rash Verified 05/09/24 03:29 prednisone [Prednisone] Allergy Intermediate Rash Verified 05/09/24 03:29 Sulfa (Sulfonamide Allergy Intermediate Rash Verified 05/09/24 03:29 Antibiotics) [Sulfa (Sulfonamides)] ziprasidone [From Geodon] Allergy Intermediate dysuria, Verified 05/09/24 03:29 rash lithium Allergy Rash Verified 05/09/24 03:29 Review of Systems Review of Systems: Yes all other systems are reviewed and are negative PMFSH Past Medical History Medical History Asthma Suicidal ideation MDD (major depressive disorder), recurrent episode, severe Chest pain Acute anxiety COVID-19 Full body hives Major depression Dizziness Suicide attempt UTI (urinary tract infection) Acetaminophen overdose COVID History of attempted suicide History of non-suicidal self-harm Hypomagnesemia Suicide attempt Suicide attempt by acetaminophen overdose Acetaminophen overdose Depression Diabetes type 2, controlled Borderline personality disorder PTSD (post-traumatic stress disorder) Overdose GERD (gastroesophageal reflux disease) Mood disorder Hyperlipidemia Bronchitis Social History Social History Household Members: None Household Members Other:: senior living Housing: Other Housing Other:: Custodial Do you presently have visiting nurse or other home services: No Unable to assess alcohol history related to: Unknown Alcohol intake: former Comment: sitter in room Patient Tobacco Use Status: Former Tobacco user Tobacco use type: Cigarette Cigarette Packs Per Day: 1 Cigarettes Per Day: 20.0 Years Smoked: 22 e-Cigarette/Vaping Use: Never Used Second Hand Smoke Exposure: No Substance Use Type: Marijuana Advance Directives: No Advance Directives Information Provided: No service: No Current occupational status: unemployed and disabled Sexual orientation: Straight/Heterosexual Physical Exam Vital Signs: Vital Signs: Last Vital Signs Temp 98.9 F 05/09/24 05:53 Pulse 95 05/09/24 05:53 Resp 16 05/09/24 05:53 BP 132/78 05/09/24 05:53 Pulse Ox 95 05/09/24 05:53 O2 Del Method Room Air 05/09/24 05:53 BMI result Body Mass Index 41.9 Appearance: Alert. Oriented X3. No acute distress. Eyes: PERRLA, No Nystagmus ENT: Pharynx normal. Oral Mucosa moist Neck: Normal inspection. Neck supple. CVS: Normal heart rate and rhythm. Pulses normal. Respiratory: No respiratory distress. Equal air entry bilateral, wheezing+ no rales Abdomen: Soft and nontender. Bowel sounds are present, no mass palpable, no CVA tenderness Skin: Skin warm and dry. Normal skin color. Normal skin turgor. Extremities: No lower extremity edema. No calf tenderness Neuro: Oriented X 3. No motor deficit. No sensory deficit.No cerebellar signs , cranial nerves II-XII intact Medications Administered Discontinued Medications Generic Name Dose Route Start Last Admin Trade Name Freq PRN Reason Stop Dose Admin Albuterol Sulfate 2.5 mg 05/09/24 04:48 05/09/24 04:50 Albuterol Sulfate (0.083%) 2.5 Mg/3 Ml Vial.Neb INHALE 05/09/24 04:49 2.5 mg ONCE ONE Administration Albuterol/Ipratropium 3 ml 05/09/24 04:34 05/09/24 04:36 Albuterol/Iprat 2.5/0.5mg 3 Ml Ampul.Neb INHALE 05/09/24 04:35 3 ml ONCE ONE Administration Medical Decision Making Medical Decision Making MDM Narrative: Patient's asthma/COPD improved after nebulizing treatment discharge patient home Discharge Plan Discharge Clinical Impression: Asthma with acute exacerbation Patient Disposition: Home, Self-Care Instructions: Asthma (ED) Additional Instructions: Use your inhaler/nebulizer as prescribed and follow with your PCP Prescriptions: No Action fluoxetine 40 mg capsule 80 mg PO DAILY lorazepam 0.5 mg tablet 0.5 mg PO BID PRN (Reason: Anxiety) fluticasone propion-salmeterol 250-50 mcg/dose blister with device 1 ea inhalation BID lisinopril 5 mg tablet 5 mg PO DAILY prazosin 2 mg capsule 4 mg PO BEDTIME haloperidol 5 mg Tablet 5 mg PO TID@0900,1530,2100 30 Days Qty: 90 0RF lactulose 20 gram/30 mL Solution 20 g PO DAILY PRN (Reason: constipation) 30 Days Qty: 1200 0RF clozapine [Clozaril] 25 mg tablet 75 mg PO BEDTIME 21 Days Qty: 63 0RF famotidine 10 mg Tablet 10 mg PO BID@0630,1630 albuterol sulfate [Ventolin HFA] 90 mcg/actuation HFA aerosol inhaler 2 inh inhalation Q4H PRN (Reason: Shortness Of Breath Or Wheezing) montelukast 10 mg tablet 10 mg PO BEDTIME metformin 500 mg tablet 500 mg PO BID atorvastatin 10 mg tablet 10 mg PO DAILY pantoprazole 40 mg tablet,delayed release (DR/EC) 40 mg PO DAILY@0630 benztropine 1 mg tablet 1 mg PO BID buspirone [BuSpar] 10 mg Tablet 10 mg PO BID mirtazapine 15 mg Tablet 15 mg PO BEDTIME fluphenazine HCl 5 mg tablet 5 mg PO BID (DME) Reusable Nebulizer Kit Kit See Rx Instructions .Route Qty: 1 0RF Rx Instructions: As directed albuterol sulfate 0.63 mg/3 mL solution for nebulization 0.63 mg inhalation Q6H Qty: 90 0RF Interventions: ED Discharge Assessment Last Done: 05/09/24 05:53 Discharge Date/Time: 05/09/24 05:54 Print Language: Sinhala
[2024-05-09 03:25] VITALS: BP 118/76; BP 139/84; PULSE 112; PULSE 113; RESP 22; TEMP 37.3; O2SAT 93; O2SAT 98; BMI 41.9
[2024-05-09] MEDS: Albuterol/Iprat 2.5/0.5MG 3 ML AMPUL.NEB INHALE (04:36)
[2024-05-09 04:38] VITALS: PULSE 83; RESP 18; O2SAT 94
[2024-05-09] MEDS: Albuterol Sulfate (0.083%) 2.5 MG/3 ML VIAL.NEB INHALE (04:50)
[2024-05-09 04:51] VITALS: PULSE 98; RESP 18; O2SAT 94
[2024-05-09 05:53] VITALS: BP 132/78; PULSE 95; RESP 16; TEMP 37.2; O2SAT 95
== END 2024-05-09 05:54 | disposition home or self-care (01) ==
PROVIDERS: Emergency Provider Internal Medicine
DX: J45.901 Unspecified asthma with (acute) exacerbation (principal); E11.9 Type 2 diabetes mellitus without complications; E78.5 Hyperlipidemia, unspecified; Z87.891 Personal history of nicotine dependence; Z79.899 Other long term (current) drug therapy; Z79.02 Long term (current) use of antithrombotics/antiplatelets
CPT/HCPCS: 94640; 99283; 99284

== ENCOUNTER 2024-05-13 10:47 | Outpatient (REF) | payer MEDICARE, MEDICAID, SELFPAY ==
[2024-05-13 11:01] LABS: MANUAL DIFF FLAG NO
[2024-05-13 12:29] LABS: Basophils Percent Auto 0.6 % (0-2); Eosinophils Absolute Auto 0.2 X10*3/uL (0.0-0.4); Eosinophils Percent Auto 4.6 % (0-4); Hematocrit 41.4 % (37.0-47.0); Hemoglobin 13.6 g/dl (12.0-16.0); Imm Gran Abs Auto 0.02 X10*3/uL (0.00-0.03); Imm Gran Pct Auto 0.4 % (0.0-0.4); Lymphocytes Absolute Auto 1.2 X10*3/uL (1.2-4.9); Lymphocytes Percent Auto 22.2 % (20-40); Mean Corpuscular HGB Conc 32.9 g/dl (31.0-35.0); Mean Corpuscular Hemoglobin 29.4 pg (27.0-33.0); Mean Corpuscular Volume 89.4 fL (80.0-98.0); Mean Platelet Volume 9.7 fL (9.4-12.3); Monocytes Absolute Auto 0.5 X10*3/uL (0.1-1.2); Monocytes Percent Auto 8.7 % (2-11); Neutrophils Absolute Auto 3.3 x10*3/uL (2.0-8.3); Neutrophils Percent Auto 63.5 % (45-73); Platelet Count 271 X10*3/uL (160-400); Red Blood Count 4.63 X10*6/uL (4.20-5.50); Red Cell Distribution Width 17.2 % (11.0-16.0); White Blood Count 5.3 X10*3/uL (4.8-10.8)
== END 2024-05-13 10:48 | disposition home or self-care (01) ==
LOC: HO.LABR 10:47
PROVIDERS: Visit Provider Psychiatry & Neurology Psychiatry
DX: Z79.899 Other long term (current) drug therapy (principal)
CPT/HCPCS: 36415; 85025

== ENCOUNTER 2024-05-14 20:05 | Emergency (ER) | payer MEDICARE, MEDICAID, SELFPAY ==
[2024-05-14 20:25] VITALS: BP 135/90; BP 140/100; PULSE 110; PULSE 120; RESP 18; TEMP 36.2; O2SAT 96; O2SAT 98; BMI 40.7
--- NOTE | 2024-05-14 20:36 | ED_ITS ---
HPI - Psych General Chief Complaint: Psychiatric Symptoms Stated Complaint: hearing voices Time Seen by Provider: 05/14/24 20:26 Source: patient Mode of arrival: ambulatory Limitations: no limitations History of Present Illness ED Provider: Dr. Eileen Ryan HPI Narrative: Patient comes to the emergency room complaining of auditory hallucinations that started earlier today. Patient states that she is hearing voices telling her that she is worthless, that people need to get paid to take care of her, that she is not worth it. Patient states that 2-3 days ago patient ingested a large amount, unknown dose of Advil, states that she had made herself throw up. Patient states she was not going to tell anybody but she told his here in the ED. also, today patient used a hair into starts scratching her abdomen and left forearm Related Data Home Medications ?Medication ?Instructions ?Recorded ?Confirmed fluoxetine 40 mg capsule 80 mg PO DAILY 08/25/23 05/14/24 lorazepam 0.5 mg tablet 0.5 mg PO BID PRN Anxiety 08/31/23 05/14/24 albuterol sulfate 90 mcg/actuation 2 inh inhalation Q4H PRN Shortness 09/17/23 05/14/24 aerosol inhaler (Ventolin HFA) Of Breath Or Wheezing atorvastatin 10 mg tablet 10 mg PO DAILY 10/04/23 05/14/24 benztropine 1 mg tablet 1 mg PO BID 10/04/23 05/14/24 metformin 500 mg tablet 500 mg PO BID 10/04/23 05/14/24 prazosin 2 mg capsule 4 mg PO BEDTIME 11/18/23 05/14/24 buspirone 10 mg tablet 10 mg PO BID 01/09/24 05/14/24 mirtazapine 15 mg tablet 7.5 mg PO BEDTIME 01/09/24 05/14/24 clozapine 25 mg tablet (Clozaril) 100 mg PO BEDTIME 05/14/24 05/14/24 Previous Rx's ?Medication ?Instructions ?Recorded haloperidol 5 mg tablet 5 mg PO TID@0900,1530,2100 30 days 11/29/23 #90 tabs nebulizer accessories (Reusable #1 ea 04/19/24 Nebulizer Kit) nystatin 100,000 unit/gram topical 1 appl topical QID #30 grams 05/14/24 ointment Allergies Allergy/AdvReac Type Severity Reaction Status Date / Time azithromycin [AZITHROMYCIN] Allergy Severe Rash Verified 05/14/24 20:35 Fish Containing Products Allergy Severe Anaphylaxis Verified 05/14/24 20:35 codeine [Codeine] Allergy Intermediate Rash Verified 05/14/24 20:35 Penicillins Allergy Intermediate Rash Verified 05/14/24 20:35 prednisone [Prednisone] Allergy Intermediate Rash Verified 05/14/24 20:35 Sulfa (Sulfonamide Allergy Intermediate Rash Verified 05/14/24 20:35 Antibiotics) [Sulfa (Sulfonamides)] ziprasidone [From Geodon] Allergy Intermediate dysuria, Verified 05/14/24 20:35 rash lithium Allergy Rash Verified 05/14/24 20:35 Review of Systems 2 Review of Systems: Constitutional : No Weight loss, No Fever, No Chills, No Night Sweats, No Fatigue, No Malaise ENT/Mouth : No Hearing loss, No Ear Pain, No Nasal Congestion, No Sinus Pain, No Hoarseness, No sore throat, No Rhinorrhea, No Swallowing Difficulty Eyes: No Eye Pain, No Swelling, No Redness, No Foreign Body, No Discharge, No Vision Changes Cardiovascular : No Chest Pain, No SOB, No Dyspnea on Exertion, No Orthopnea, No Edema, No Palpitations Respiratory : No Cough, No Sputum, No Wheezing, No Smoke Exposure, No Dyspnea Gastrointestinal : No Nausea, No Vomiting, No Diarrhea, No Constipation, No abdominal Pain, No Hematochezia, No Melena Genitourinary : no irregular bleeding, No Dysuria, No Urinary Frequency, No Hematuria, No Urinary Incontinence, No Urgency, No Flank Pain, No Urinary Flow Changes, No Hesitancy Musculoskeletal : No joint pain, No Myalgias, No Joint Swelling Skin : Multiple superficial scratches to the left forearm and abdomen. Patient complaining of a fungal infection under the abdomen flap Neuro : No Weakness, No Numbness, No Paresthesias, No Loss of Consciousness, No Dizziness, No Headache Psych : Anxiety, depression, auditory hallucinations Heme/Lymph: No Bruising, No Bleeding,No Lymphadenopathy Endocrine : No Polyuria, No Polydipsia, No Temperature Intolerance PMFSH Past Medical History Medical History Asthma Suicidal ideation MDD (major depressive disorder), recurrent episode, severe Chest pain Acute anxiety COVID-19 Full body hives Major depression Dizziness Suicide attempt UTI (urinary tract infection) Acetaminophen overdose COVID History of attempted suicide History of non-suicidal self-harm Hypomagnesemia Suicide attempt Suicide attempt by acetaminophen overdose Acetaminophen overdose Depression Diabetes type 2, controlled Borderline personality disorder PTSD (post-traumatic stress disorder) Overdose GERD (gastroesophageal reflux disease) Mood disorder Hyperlipidemia Bronchitis Social History Social History Household Members: None Household Members Other:: detention Housing: Other Housing Other:: Residential Do you presently have visiting nurse or other home services: No Unable to assess alcohol history related to: Unknown Alcohol intake: former Comment: sitter in room Patient Tobacco Use Status: Former Tobacco user Tobacco use type: Cigarette Cigarette Packs Per Day: 1 Cigarettes Per Day: 20.0 Years Smoked: 22 e-Cigarette/Vaping Use: Never Used Second Hand Smoke Exposure: No Substance Use Type: Marijuana Advance Directives: No Advance Directives Information Provided: No Do you have a plan to hurt others: No Plan service: No Current occupational status: unemployed and disabled Sexual orientation: Straight/Heterosexual Physical Exam 2 Vital Signs: Vital Signs: Last Vital Signs Temp 97.2 F 05/14/24 20:25 Pulse 120 H 05/14/24 20:25 Resp 18 05/14/24 20:25 BP 140/100 H 05/14/24 20:25 Pulse Ox 96 05/14/24 20:25 O2 Del Method Room Air 05/14/24 20:25 BMI result Body Mass Index 40.7 Const: Other: Appearance: Alert. Oriented X3. No acute distress. Eyes: Pupils equal, round and reactive to light. ENT: Pharynx normal. Neck: Normal inspection. Neck supple. No lymph nodes noted. No crepitus CVS: Normal heart rate and rhythm. Pulses normal. Normal S1 and S2 Respiratory: No respiratory distress. Breath sounds normal. No Wheezing. No rales Abdomen: Soft and nontender. No rigidity. No distention. Skin: Multiple superficial scratches to left forearm and abdomen, patient has candidiasis under the abdomen between skin folds and in the left groin area. Extremities: No lower extremity edema. No Lacerations. No Rash Neuro: Oriented X 3. No motor deficit. No sensory deficit. Moving all extremities. No slurred speech. CN 2 through 12 grossly intact Psych: calm, cooperative, normal affect Course Course Course Narrative: -all of patient's labs pending -care team consult pending Medications Administered Generic Name Dose Route Start Last Admin Trade Name Elmer PRN Reason Stop Dose Admin Benztropine Mesylate 1 mg 05/14/24 22:15 05/14/24 22:35 Benztropine Mesylate 1 Mg Tablet PO 1 mg BID YULY Administration Buspirone HCl 10 mg 05/14/24 22:15 05/14/24 22:35 Buspirone Hcl 10 Mg Tablet PO 10 mg BID YULY Administration Clozapine 100 mg 05/14/24 22:00 05/14/24 22:34 Clozapine 100 Mg Tablet PO 100 mg BEDTIME YULY Administration Haloperidol 5 mg 05/14/24 22:15 05/14/24 22:35 Haloperidol 5 Mg Tablet PO 5 mg TID@0900,1530,2100 YULY Administration Metformin HCl 500 mg 05/14/24 22:15 05/14/24 22:35 Metformin Hcl 500 Mg Tablet PO 500 mg BID YULY Administration Mirtazapine 7.5 mg 05/15/24 21:00 05/14/24 22:34 Mirtazapine 7.5 Mg Tablet PO 7.5 mg BEDTIME YULY Administration Prazosin HCl 4 mg 05/15/24 21:00 05/14/24 22:34 Prazosin Hcl 1 Mg Capsule PO 4 mg BEDTIME YULY Administration Protocol Discontinued Medications Generic Name Dose Route Start Last Admin Trade Name Elmer PRN Reason Stop Dose Admin Lorazepam 1 mg 05/14/24 21:34 05/14/24 21:42 Lorazepam 1 Mg Tablet PO 05/14/24 21:35 1 mg ONCE ONE Administration Nystatin 1 appl 05/14/24 20:36 05/14/24 20:58 Nystatin Powder 15 Gm Bottle TOPICAL 05/14/24 20:37 1 appl ONCE ONE Administration Protocol Medical Decision Making Medical Decision Making MDM Narrative: -my interpretation of labs: Patient's hematology and chemistry are at baseline. -the care team evaluated the patient, they recommend to discharge the patient home. Overall the patient states that she feels much better, denies SI or HI -the care team is trying to get in touch with the patient's detention to let them know that she will be returning to them shortly. 22:42, confirmed that the patient has been accepted back to her detention Differential Diagnosis Differential Diagnoses: The differential diagnosis associated with the presentation includes (Anxiety, depression, schizophrenia) Admission/Observation Consideration of admission/observation: Escalation of care including admission/observation considered (Patient is under physician observation waiting for the care team to determine patient's disposition) Lab Data MDM Lab Attestation statement: I reviewed the patient's lab results. 05/14/24 20:59 05/14/24 20:59 Labs: Lab Results 05/14/24 Range/Units 20:59 WBC 8.1 (4.8-10.8) X10*3/uL RBC 4.67 (4.20-5.50) X10*6/uL Hgb 14.1 (12.0-16.0) g/dl Hct 41.5 (37.0-47.0) % MCV 88.9 (80.0-98.0) fL MCH 30.2 (27.0-33.0) pg MCHC 34.0 (31.0-35.0) g/dl RDW 16.9 H (11.0-16.0) % Plt Count 289 (160-400) X10*3/uL MPV 9.4 (9.4-12.3) fL Immature Gran % (Auto) 0.5 H (0.0-0.4) % Neut % (Auto) 63.2 (45-73) % Lymph % (Auto) 23.5 (20-40) % [place]oard % (Auto) 8.8 (2-11) % Eos % (Auto) 3.6 (0-4) % Baso % (Auto) 0.4 (0-2) % Lymph # (Auto) 1.9 (1.2-4.9) X10*3/uL [place]oard # (Auto) 0.7 (0.1-1.2) X10*3/uL Eos # (Auto) 0.3 (0.0-0.4) X10*3/uL Baso # (Auto) 0.0 (0.0-0.2) X10*3/uL Abs Immat Gran (auto) 0.04 H (0.00-0.03) X10*3/uL Absolute Neuts (auto) 5.1 (2.0-8.3) x10*3/uL Absolute Nucleated RBC 0.000 (0.0-0.012) X10*3/uL Nucleated RBC % (auto) 0.0 (0.0-0.2) /100WBC Sodium 140 (135-145) mmol/L Potassium 3.9 (3.3-5.1) mmol/L Chloride 105 (96-108) mmol/L Carbon Dioxide 21 L (22-29) mmol/L Anion Gap 18 (12-20) BUN 11 (9-16) mg/dL Creatinine 0.83 (0.5-1.4) mg/dL Estim Creat Clear Calc 97.8 Estimated GFR > 60 Random Glucose 155 H (60-115) mg/dL Calcium 9.8 (8.4-10.2) mg/dL Total Bilirubin 0.2 (0.0-1.0) mg/dL Direct Bilirubin < 0.2 (0.0-0.5) mg/dL AST 30 (5-31) U/L ALT 34 H (0-31) U/L Alkaline Phosphatase 159 H (39-117) U/L Total Protein 7.7 (6.5-8.0) g/dL Albumin 4.6 (3.5-5.0) g/dL Urine Color Yellow Urine Appearance Clear Urine pH 6.0 (5.0-9.0) Ur Specific [place] 1.010 (1.005-1.025) Urine Protein Negative (Neg-Trace) mg/dL Urine Glucose (UA) Negative (Negative) mg/dL Urine Ketones Negative (Negative) mg/dL Urine Blood Negative (Negative) Urine Nitrite Negative (Negative) Ur Leukocyte Esterase Negative (Negative) Urine Test NEGATIVE (NEGATIVE) Salicylates < 5.0 L (15-30) mg/dL Urine Opiates Screen Not Detected (Not Detect) Ur Buprenorphine Scrn Not Detected (Not Detect) ng/mL Ur Oxycodone Screen Not Detected (Not Detect) ng/mL Urine Methadone Screen Not Detected (Not Detect) ng/mL Urine Fentanyl Screen Not Detected (Not Detect) Acetaminophen < 3 (<30) mcg/mL Ur Barbiturates Screen Not Detected (Not Detect) Ur Phencyclidine Scrn Not Detected (Not Detect) Ur Amphetamines Screen Not Detected (Not Detect) U Benzodiazepines Scrn Not Detected (Not Detect) Urine Cocaine Screen Not Detected (Not Detect) U Marijuana (THC) Screen Not Detected (Not Detect) Ethyl Alcohol < 10 mg/dL Critical Care Time Critical Care Time Critical Care Time: Yes Total Critical Care Time: 30 Attestation: I have personally provided critical care time. Time includes review of lab data, radiology results, discussion with consultants, and monitoring for potential decompensation. Intervention performed as documented. Discharge Plan Discharge Clinical Impression: Auditory hallucination, Candidiasis Patient Disposition: Home, Self-Care Instructions: Yeast Infection (ED), Hallucinations (ED) Additional Instructions: Please follow-up with your primary care physician tomorrow. If you have any worsening or new symptoms, please return to the emergency room or call 911 Prescriptions: New nystatin 100,000 unit/gram ointment 1 appl topical QID Qty: 30 1RF No Action fluoxetine 40 mg capsule 80 mg PO DAILY lorazepam 0.5 mg tablet 0.5 mg PO BID PRN (Reason: Anxiety) prazosin 2 mg capsule 4 mg PO BEDTIME haloperidol 5 mg Tablet 5 mg PO TID@0900,1530,2100 30 Days Qty: 90 0RF clozapine [Clozaril] 25 mg tablet 100 mg PO BEDTIME albuterol sulfate [Ventolin HFA] 90 mcg/actuation HFA aerosol inhaler 2 inh inhalation Q4H PRN (Reason: Shortness Of Breath Or Wheezing) metformin 500 mg tablet 500 mg PO BID atorvastatin 10 mg tablet 10 mg PO DAILY benztropine 1 mg tablet 1 mg PO BID buspirone [BuSpar] 10 mg Tablet 10 mg PO BID mirtazapine 15 mg Tablet 7.5 mg PO BEDTIME (DME) Reusable Nebulizer Kit Kit See Rx Instructions .Route Qty: 1 0RF Rx Instructions: As directed Print Language: Malaysian
[2024-05-14] MEDS: Nystatin Powder 15 GM BOTTLE 1 APPL TOPICAL (20:58)
[2024-05-14 21:05] LABS: MANUAL DIFF FLAG NO
[2024-05-14 21:07] LABS: Basophils Percent Auto 0.4 % (0-2); Eosinophils Absolute Auto 0.3 X10*3/uL (0.0-0.4); Eosinophils Percent Auto 3.6 % (0-4); Hematocrit 41.5 % (37.0-47.0); Hemoglobin 14.1 g/dl (12.0-16.0); Imm Gran Abs Auto 0.04 X10*3/uL (0.00-0.03); Imm Gran Pct Auto 0.5 % (0.0-0.4); Lymphocytes Absolute Auto 1.9 X10*3/uL (1.2-4.9); Lymphocytes Percent Auto 23.5 % (20-40); Mean Corpuscular Hemoglobin 30.2 pg (27.0-33.0); Mean Corpuscular Volume 88.9 fL (80.0-98.0); Mean Platelet Volume 9.4 fL (9.4-12.3); Monocytes Absolute Auto 0.7 X10*3/uL (0.1-1.2); Monocytes Percent Auto 8.8 % (2-11); Neutrophils Absolute Auto 5.1 x10*3/uL (2.0-8.3); Neutrophils Percent Auto 63.2 % (45-73); Platelet Count 289 X10*3/uL (160-400); Red Blood Count 4.67 X10*6/uL (4.20-5.50); Red Cell Distribution Width 16.9 % (11.0-16.0); White Blood Count 8.1 X10*3/uL (4.8-10.8)
[2024-05-14 21:16] LABS: Appearance Urine Clear; Color Urine Yellow; Glucose Urine UA Negative (Negative); Leukocyte Esterase Urine Negative (Negative); Nitrite Urine Negative (Negative); UPreg QC Valid YES; Urine Blood Negative (Negative); Urine Ketones Negative (Negative); Urine Pregnancy NEGATIVE (NEGATIVE); Urine Protein Negative (Neg-Trace)
[2024-05-14 21:28] LABS: Amphetamine Screen Urine Not Detected (Not Detect); Barbiturates, Urine Not Detected (Not Detect); Benzodiazepines Screen Urine Not Detected (Not Detect); Buprenorphine Scr Not Detected (Not Detect); Cannabinoid Screen Urine Not Detected (Not Detect); Cocaine Screen Urine Not Detected (Not Detect); Fentanyl, urine Not Detected (Not Detect); Methadone Screen, Urine Not Detected (Not Detect); Opiate Screen Urine Not Detected (Not Detect); Oxycodone Screen Urine Not Detected (Not Detect); Phencyclidine Screen Urine Not Detected (Not Detect)
[2024-05-14 21:33] LABS: Acetaminophen LAB < 3 mcg/mL (<30); Salicylate < 5.0 mg/dL (15-30)
[2024-05-14 21:35] LABS: Alanine Aminotransferase 34 U/L (0-31); Albumin Level 4.6 g/dL (3.5-5.0); Alkaline Phosphatase 159 U/L (39-117); Anion Gap 18 (12-20); Aspartate Amino Transferase 30 U/L (5-31); Bilirubin Direct < 0.2 mg/dL (0.0-0.5); Bilirubin Total 0.2 mg/dL (0.0-1.0); Blood Urea Nitrogen 11 mg/dL (9-16); Calcium 9.8 mg/dL (8.4-10.2); Carbon Dioxide 21 mmol/L (22-29); Chloride 105 mmol/L (96-108); Creatinine Clr Calc Pharmacy 97.8; Estimated Glomerular Filt Rate > 60; Ethanol < 10 mg/dL; Glucose Random 155 mg/dL (60-115); Potassium 3.9 mmol/L (3.3-5.1); Sodium 140 mmol/L (135-145); Total Protein 7.7 g/dL (6.5-8.0)
[2024-05-14] MEDS: LORazepam 1 MG TABLET PO (21:42)
[2024-05-14] MEDS: cloZAPine 100 MG TABLET PO (22:34)
[2024-05-14] MEDS: Prazosin HCL 1 MG CAPSULE 4 MG PO (22:34)
[2024-05-14] MEDS: Mirtazapine 7.5 MG TABLET PO (22:34)
[2024-05-14] MEDS: Benztropine Mesylate 1 MG TABLET PO (22:35)
[2024-05-14] MEDS: busPIRone HCl 10 MG TABLET PO (22:35)
[2024-05-14] MEDS: HaloperidoL 5 MG TABLET PO (22:35)
[2024-05-14] MEDS: metFORMIN HCl 500 MG TABLET PO (22:35)
[2024-05-14 22:51] VITALS: BP 124/76; PULSE 85; RESP 18; TEMP 37; O2SAT 96
== END 2024-05-14 22:52 | disposition home or self-care (01) ==
PROVIDERS: Emergency Provider Emergency Medicine; PCP Nurse Practitioner Family
DX: R44.0 Auditory hallucinations (principal); B37.9 Candidiasis, unspecified; Z79.899 Other long term (current) drug therapy; Z51.81 Encounter for therapeutic drug level monitoring
CPT/HCPCS: 36415; 80048; 80076; 80143; 80179; 80307; 81003; 81025; 85025; 99284; S9485

== ENCOUNTER 2024-05-20 02:49 | Emergency (ER) | payer MEDICARE, MEDICAID, SELFPAY ==
[2024-05-20 02:56] VITALS: BP 138/80; BP 138/88; PULSE 118; PULSE 131; RESP 17; TEMP 36.6; O2SAT 94; O2SAT 96
[2024-05-20 02:58] VITALS: BP 138/88; PULSE 118; RESP 17; TEMP 36.6; O2SAT 94; BMI 41.5
[2024-05-20] MEDS: Albuterol Sulfate 2.5 MG, Albuterol/Iprat 2.5/0.5MG 3 ML 3 ML INHALE (03:52)
[2024-05-20 03:56] VITALS: PULSE 107; RESP 18; O2SAT 96
[2024-05-20 05:04] VITALS: BP 139/96; PULSE 99; RESP 17; TEMP 36.7; O2SAT 97
--- NOTE | 2024-05-20 05:56 | ED.SOB ---
HPI - SOB/Dyspnea General Chief Complaint: Dyspnea Stated Complaint: SoB Time Seen by Provider: 05/20/24 03:25 Source: patient Mode of arrival: EMS Limitations: no limitations History of Present Illness ED Provider: gem KIRBY Narrative: Patient history of bipolar disorder diabetes depression with asthma been here frequently this time she comes here for increased shortness of breath woke her up from sleep on arrival patient was saturating 94% on 2 L which she uses off and on as needed Related Data Home Medications ?Medication ?Instructions ?Recorded ?Confirmed fluoxetine 40 mg capsule 80 mg PO DAILY 08/25/23 05/14/24 lorazepam 0.5 mg tablet 0.5 mg PO BID PRN Anxiety 08/31/23 05/14/24 albuterol sulfate 90 mcg/actuation 2 inh inhalation Q4H PRN Shortness 09/17/23 05/14/24 aerosol inhaler (Ventolin HFA) Of Breath Or Wheezing atorvastatin 10 mg tablet 10 mg PO DAILY 10/04/23 05/14/24 benztropine 1 mg tablet 1 mg PO BID 10/04/23 05/14/24 metformin 500 mg tablet 500 mg PO BID 10/04/23 05/14/24 prazosin 2 mg capsule 4 mg PO BEDTIME 11/18/23 05/14/24 buspirone 10 mg tablet 10 mg PO BID 01/09/24 05/14/24 mirtazapine 15 mg tablet 7.5 mg PO BEDTIME 01/09/24 05/14/24 clozapine 25 mg tablet (Clozaril) 100 mg PO BEDTIME 05/14/24 05/14/24 fluphenazine HCl 5 mg tablet 5 mg PO BID 05/14/24 05/14/24 Previous Rx's ?Medication ?Instructions ?Recorded haloperidol 5 mg tablet 5 mg PO TID@0900,1530,2100 30 days 11/29/23 #90 tabs nebulizer accessories (Reusable #1 ea 04/19/24 Nebulizer Kit) nystatin 100,000 unit/gram topical 1 appl topical QID #30 grams 05/14/24 ointment Allergies Allergy/AdvReac Type Severity Reaction Status Date / Time azithromycin [AZITHROMYCIN] Allergy Severe Rash Verified 05/20/24 03:02 Fish Containing Products Allergy Severe Anaphylaxis Verified 05/20/24 03:02 codeine [Codeine] Allergy Intermediate Rash Verified 05/20/24 03:02 Penicillins Allergy Intermediate Rash Verified 05/20/24 03:02 prednisone [Prednisone] Allergy Intermediate Rash Verified 05/20/24 03:02 Sulfa (Sulfonamide Allergy Intermediate Rash Verified 05/20/24 03:02 Antibiotics) [Sulfa (Sulfonamides)] ziprasidone [From Geodon] Allergy Intermediate dysuria, Verified 05/20/24 03:02 rash lithium Allergy Rash Verified 05/20/24 03:02 Review of Systems Review of Systems: Yes all other systems are reviewed and are negative PMFSH Past Medical History Medical History Asthma Suicidal ideation MDD (major depressive disorder), recurrent episode, severe Chest pain Acute anxiety COVID-19 Full body hives Major depression Dizziness Suicide attempt UTI (urinary tract infection) Acetaminophen overdose COVID History of attempted suicide History of non-suicidal self-harm Hypomagnesemia Suicide attempt Suicide attempt by acetaminophen overdose Acetaminophen overdose Depression Diabetes type 2, controlled Borderline personality disorder PTSD (post-traumatic stress disorder) Overdose GERD (gastroesophageal reflux disease) Mood disorder Hyperlipidemia Bronchitis Social History Social History Household Members: None Household Members Other:: skilled nursing Housing: Other Housing Other:: Long Term Do you presently have visiting nurse or other home services: No Unable to assess alcohol history related to: Unknown Alcohol intake: former Comment: sitter in room Patient Tobacco Use Status: Former Tobacco user Tobacco use type: Cigarette Cigarette Packs Per Day: 1 Cigarettes Per Day: 20.0 Years Smoked: 22 Smoked in Last 30 Days: Yes e-Cigarette/Vaping Use: Never Used Second Hand Smoke Exposure: No Use of substances other than those prescribed or required for medical reasons: No Substance Use Type: Marijuana Advance Directives: No Advance Directives Information Provided: Yes service: No Current occupational status: unemployed and disabled Sexual orientation: Straight/Heterosexual Physical Exam Vital Signs: Vital Signs: Last Vital Signs Temp 98.0 F 05/20/24 05:04 Pulse 99 05/20/24 05:04 Resp 17 05/20/24 05:04 BP 139/96 H 05/20/24 05:04 Pulse Ox 97 05/20/24 05:04 O2 Del Method Nasal Cannula 05/20/24 05:04 O2 Flow Rate 2 05/20/24 05:04 Oxygen Flow Rate 2 05/20/24 02:58 BMI result Body Mass Index 41.5 Appearance: Alert. Oriented X3. No acute distress. Eyes: No pallor or icterus ENT: Pharynx normal. Oral Mucosa moist Neck: Normal inspection. Neck supple. CVS: Normal heart rate and rhythm. Pulses normal. Respiratory: No respiratory distress. Equal air entry bilateral, prolonged expiration Abdomen: Soft and nontender. Bowel sounds are present, Skin: Skin warm and dry. Normal skin color. Normal skin turgor. Extremities: No lower extremity edema. No calf tenderness Neuro: Oriented X 3. Medications Administered Discontinued Medications Generic Name Dose Route Start Last Admin Trade Name Freq PRN Reason Stop Dose Admin Albuterol Sulfate 2.5 mg/ 0 mg 05/20/24 03:31 05/20/24 03:52 Albuterol/Ipratropium 3 ml INHALE 05/20/24 03:32 3.5 dose ONCE ONE Administration Medical Decision Making Medical Decision Making MDM Narrative: Patient with stable asthma with occasional exacerbation saturating 94-96% on 2 L which she uses as needed improved after DuoNeb treatment will discharge patient home Discharge Plan Discharge Clinical Impression: Asthma with exacerbation Patient Disposition: Home, Self-Care Instructions: Asthma (ED) Additional Instructions: Use your oxygen and albuterol inhaler/nebulizer as needed , every 4 hours Follow with your PCP Prescriptions: No Action fluoxetine 40 mg capsule 80 mg PO DAILY lorazepam 0.5 mg tablet 0.5 mg PO BID PRN (Reason: Anxiety) prazosin 2 mg capsule 4 mg PO BEDTIME haloperidol 5 mg Tablet 5 mg PO TID@0900,1530,2100 30 Days Qty: 90 0RF clozapine [Clozaril] 25 mg tablet 100 mg PO BEDTIME nystatin 100,000 unit/gram ointment 1 appl topical QID Qty: 30 1RF fluphenazine HCl 5 mg tablet 5 mg PO BID albuterol sulfate [Ventolin HFA] 90 mcg/actuation HFA aerosol inhaler 2 inh inhalation Q4H PRN (Reason: Shortness Of Breath Or Wheezing) metformin 500 mg tablet 500 mg PO BID atorvastatin 10 mg tablet 10 mg PO DAILY benztropine 1 mg tablet 1 mg PO BID buspirone [BuSpar] 10 mg Tablet 10 mg PO BID mirtazapine 15 mg Tablet 7.5 mg PO BEDTIME (DME) Reusable Nebulizer Kit Kit See Rx Instructions .Route Qty: 1 0RF Rx Instructions: As directed Print Language: Bulgarian
[2024-05-20 06:44] VITALS: BP 139/96; PULSE 99; RESP 17; TEMP 36.7; O2SAT 97
== END 2024-05-20 06:46 | disposition home or self-care (01) ==
PROVIDERS: Emergency Provider Internal Medicine
DX: J45.901 Unspecified asthma with (acute) exacerbation (principal); R06.02 Shortness of breath; E11.9 Type 2 diabetes mellitus without complications; E78.5 Hyperlipidemia, unspecified; Z79.899 Other long term (current) drug therapy
CPT/HCPCS: 36415; 85025; 94640; 99284

== ENCOUNTER 2024-05-20 10:52 | Outpatient (REF) | payer MEDICARE, MEDICAID, SELFPAY ==
[2024-05-20 11:01] LABS: MANUAL DIFF FLAG NO
[2024-05-20 11:43] LABS: Basophils Percent Auto 0.6 % (0-2); Eosinophils Absolute Auto 0.2 X10*3/uL (0.0-0.4); Eosinophils Percent Auto 3.6 % (0-4); Hematocrit 38.4 % (37.0-47.0); Hemoglobin 12.6 g/dl (12.0-16.0); Imm Gran Abs Auto 0.04 X10*3/uL (0.00-0.03); Imm Gran Pct Auto 0.8 % (0.0-0.4); Lymphocytes Absolute Auto 1.2 X10*3/uL (1.2-4.9); Lymphocytes Percent Auto 23.1 % (20-40); Mean Corpuscular HGB Conc 32.8 g/dl (31.0-35.0); Mean Corpuscular Hemoglobin 29.9 pg (27.0-33.0); Mean Platelet Volume 9.5 fL (9.4-12.3); Monocytes Absolute Auto 0.4 X10*3/uL (0.1-1.2); Monocytes Percent Auto 6.9 % (2-11); Neutrophils Absolute Auto 3.4 x10*3/uL (2.0-8.3); Platelet Count 271 X10*3/uL (160-400); Red Blood Count 4.22 X10*6/uL (4.20-5.50); White Blood Count 5.2 X10*3/uL (4.8-10.8)
== END 2024-05-20 10:53 | disposition home or self-care (01) ==
LOC: HO.LABR 10:52
PROVIDERS: Visit Provider Psychiatry & Neurology Psychiatry
DX: Z13.89 Encounter for screening for other disorder (principal)
CPT/HCPCS: 36415; 85025

== ENCOUNTER 2024-05-22 03:17 | Emergency (ER) | payer MEDICARE, MEDICAID, SELFPAY ==
[2024-05-22 03:23] VITALS: BP 150/110; PULSE 97; O2SAT 97
[2024-05-22 03:33] VITALS: BP 166/91; PULSE 111; RESP 18; TEMP 36.6; O2SAT 97; BMI 37.6
--- NOTE | 2024-05-22 03:59 | ED.SOB ---
HPI - SOB/Dyspnea General Chief Complaint: Dyspnea Stated Complaint: difficulty breathing Time Seen by Provider: 05/22/24 03:45 Source: patient and EMS Mode of arrival: EMS Limitations: no limitations History of Present Illness ED Provider: Dr. Velasco HPI Narrative: patient is in the ED almost weekly and was here yesterday for cough that woke her form sleep. This is the same as her presentation yesterday. Related Data Home Medications ?Medication ?Instructions ?Recorded ?Confirmed fluoxetine 40 mg capsule 80 mg PO DAILY 08/25/23 05/14/24 lorazepam 0.5 mg tablet 0.5 mg PO BID PRN Anxiety 08/31/23 05/14/24 albuterol sulfate 90 mcg/actuation 2 inh inhalation Q4H PRN Shortness 09/17/23 05/14/24 aerosol inhaler (Ventolin HFA) Of Breath Or Wheezing atorvastatin 10 mg tablet 10 mg PO DAILY 10/04/23 05/14/24 benztropine 1 mg tablet 1 mg PO BID 10/04/23 05/14/24 metformin 500 mg tablet 500 mg PO BID 10/04/23 05/14/24 prazosin 2 mg capsule 4 mg PO BEDTIME 11/18/23 05/14/24 buspirone 10 mg tablet 10 mg PO BID 01/09/24 05/14/24 mirtazapine 15 mg tablet 7.5 mg PO BEDTIME 01/09/24 05/14/24 clozapine 25 mg tablet (Clozaril) 100 mg PO BEDTIME 05/14/24 05/14/24 fluphenazine HCl 5 mg tablet 5 mg PO BID 05/14/24 05/14/24 Previous Rx's ?Medication ?Instructions ?Recorded haloperidol 5 mg tablet 5 mg PO TID@0900,1530,2100 30 days 11/29/23 #90 tabs nebulizer accessories (Reusable #1 ea 04/19/24 Nebulizer Kit) nystatin 100,000 unit/gram topical 1 appl topical QID #30 grams 05/14/24 ointment Allergies Allergy/AdvReac Type Severity Reaction Status Date / Time azithromycin [AZITHROMYCIN] Allergy Severe Rash Verified 05/22/24 03:34 Fish Containing Products Allergy Severe Anaphylaxis Verified 05/22/24 03:34 codeine [Codeine] Allergy Intermediate Rash Verified 05/22/24 03:34 Penicillins Allergy Intermediate Rash Verified 05/22/24 03:34 prednisone [Prednisone] Allergy Intermediate Rash Verified 05/22/24 03:34 Sulfa (Sulfonamide Allergy Intermediate Rash Verified 05/22/24 03:34 Antibiotics) [Sulfa (Sulfonamides)] ziprasidone [From Geodon] Allergy Intermediate dysuria, Verified 05/22/24 03:34 rash lithium Allergy Rash Verified 05/22/24 03:34 Review of Systems Review of Systems: Yes all other systems are reviewed and are negative Neurologic: Denies Sensory deficit (Neuro) [facility] Past Medical History Medical History Asthma Suicidal ideation MDD (major depressive disorder), recurrent episode, severe Chest pain Acute anxiety COVID-19 Full body hives Major depression Dizziness Suicide attempt UTI (urinary tract infection) Acetaminophen overdose COVID History of attempted suicide History of non-suicidal self-harm Hypomagnesemia Suicide attempt Suicide attempt by acetaminophen overdose Acetaminophen overdose Depression Diabetes type 2, controlled Borderline personality disorder PTSD (post-traumatic stress disorder) Overdose GERD (gastroesophageal reflux disease) Mood disorder Hyperlipidemia Bronchitis Social History Social History Household Members: None Household Members Other:: half-way Housing: Other Housing Other:: Nursing Home Do you presently have visiting nurse or other home services: No Unable to assess alcohol history related to: Unknown Alcohol intake: former Comment: sitter in room Patient Tobacco Use Status: Former Tobacco user Tobacco use type: Cigarette Cigarette Packs Per Day: 1 Cigarettes Per Day: 20.0 Years Smoked: 22 e-Cigarette/Vaping Use: Never Used Second Hand Smoke Exposure: No Substance Use Type: Marijuana service: No Current occupational status: unemployed and disabled Sexual orientation: Straight/Heterosexual Physical Exam Vital Signs: Vital Signs: Last Vital Signs Temp 97.8 F 05/22/24 03:33 Pulse 111 H 05/22/24 03:33 Resp 18 05/22/24 03:33 BP 166/91 H 05/22/24 03:33 Pulse Ox 97 05/22/24 03:33 O2 Del Method Room Air 05/22/24 03:33 BMI result Body Mass Index 37.6 Const: Other: obese female looking older than stated age in no acute distress Orientation/consciousness: oriented to person and patient oriented x3 Limitations: no limitations HEENT: Head: Yes normal to inspection Ears: external ears normal General nose exam: Normal external nose present Mouth: Normal oral and palatal mucosa present and oropharynx normal Throat: Yes posterior oropharynx normal Eyes: General: appearance normal, both eyes and all related structures Neck: Other: supple Neck: Yes normal visual inspection Chest: Chest palpation & inspection: normal inspection of the chest Resp: Auscultation: clear to auscultation bilaterally Cardio: Jugular venous distension: no JVD Rate: regular rate Rhythm: regular rhythm Heart sounds: S1 normal heart sound present and S2 normal heart sound present GI: Inspection: Yes normal to inspection Palpation (GI): Soft to palpation, nontender and No hepatosplenomegaly present Auscultation: normal bowel sounds : General: Yes no CVA tenderness Back/Spine/Pelvis: Back: no CVA tenderness Skin: General skin exam: no rashes or lesions noted Neuro: General: oriented to person and patient oriented x3 Cranial nerves: Yes CN's II-XII intact bilaterally Motor exam (neuro): 5/5 motor strength present throughout Sensory Exam: No Sensory deficit (Neuro) Extrem: General: Yes normal to inspection Psych: Appearance: grossly normal Course Reevaluation(s) Reevaluation #1: Patient sleeping, breathing normally, no wheezing Time: 04:03 Medical Decision Making Differential Diagnosis Differential Diagnoses: The differential diagnosis associated with the presentation includes (asthma, anxiety, bronchitis, pneumonia) Independent Historian Clinical information obtained from an independent historian. History obtained from or confirmed by: Spouse and EMS External Record Review External record reviewed: Outpatient record and Prior outpatient radiology Tests considered The following testing was considered but not selected: CXR considered but patient with clear lungs Prescription Management I considered prescription management with: Antibiotic (no evidence of pneumonia) Chronic Conditions Patient?s care impacted by: Other (psychiatric illness) Social Determinants Patient?s care significantly limited by Social Determinants of Health including: Low income and Other Social Determinant of Health Discharge Plan Discharge Clinical Impression: Cough, Anxiety Patient Disposition: Home, Self-Care Prescriptions: No Action fluoxetine 40 mg capsule 80 mg PO DAILY lorazepam 0.5 mg tablet 0.5 mg PO BID PRN (Reason: Anxiety) prazosin 2 mg capsule 4 mg PO BEDTIME haloperidol 5 mg Tablet 5 mg PO TID@0900,1530,2100 30 Days Qty: 90 0RF clozapine [Clozaril] 25 mg tablet 100 mg PO BEDTIME nystatin 100,000 unit/gram ointment 1 appl topical QID Qty: 30 1RF fluphenazine HCl 5 mg tablet 5 mg PO BID albuterol sulfate [Ventolin HFA] 90 mcg/actuation HFA aerosol inhaler 2 inh inhalation Q4H PRN (Reason: Shortness Of Breath Or Wheezing) metformin 500 mg tablet 500 mg PO BID atorvastatin 10 mg tablet 10 mg PO DAILY benztropine 1 mg tablet 1 mg PO BID buspirone [BuSpar] 10 mg Tablet 10 mg PO BID mirtazapine 15 mg Tablet 7.5 mg PO BEDTIME (DME) Reusable Nebulizer Kit Kit See Rx Instructions .Route Qty: 1 0RF Rx Instructions: As directed Print Language: Bahamian
[2024-05-22 05:58] VITALS: BP 154/78; PULSE 110; RESP 18; TEMP 36.6; O2SAT 99
== END 2024-05-22 04:35 | disposition home or self-care (01) ==
PROVIDERS: Emergency Provider Emergency Medicine
DX: R05.9 Cough, unspecified (principal); F41.9 Anxiety disorder, unspecified
CPT/HCPCS: 99282; 99283

== ENCOUNTER 2024-05-23 21:23 | Emergency (ER) | payer MEDICARE, MEDICAID, SELFPAY ==
[2024-05-23 21:27] VITALS: BP 140/92; BP 153/89; PULSE 119; PULSE 126; RESP 15; TEMP 36.8; O2SAT 95; O2SAT 97; BMI 41.6
[2024-05-23 21:34] VITALS: BP 153/89; PULSE 116; RESP 15; TEMP 36.9; O2SAT 95
[2024-05-23 22:00] VITALS: BP 153/89; PULSE 116; RESP 15; TEMP 36.9; O2SAT 95
--- NOTE | 2024-05-23 22:18 | PC.NURSE ---
Pt presented this RN with note enorsing SI, pt verbalized same. Note placed on chart for MD review. Sitter 1:1 at bedside for safety. Cursory search performed by this RN - pt has only clothing, notebook and pencil present - defering complete search until after provider can assess due to fall with cervical collar in place.
[2024-05-23 22:50] LABS: MANUAL DIFF FLAG NO
[2024-05-23 22:52] LABS: Basophils Percent Auto 0.4 % (0-2); Eosinophils Absolute Auto 0.3 X10*3/uL (0.0-0.4); Eosinophils Percent Auto 4.1 % (0-4); Hematocrit 38.2 % (37.0-47.0); Hemoglobin 12.9 g/dl (12.0-16.0); Imm Gran Abs Auto 0.04 X10*3/uL (0.00-0.03); Imm Gran Pct Auto 0.5 % (0.0-0.4); Lymphocytes Absolute Auto 1.8 X10*3/uL (1.2-4.9); Lymphocytes Percent Auto 22.1 % (20-40); Mean Corpuscular HGB Conc 33.8 g/dl (31.0-35.0); Mean Corpuscular Hemoglobin 30.5 pg (27.0-33.0); Mean Corpuscular Volume 90.3 fL (80.0-98.0); Mean Platelet Volume 9.1 fL (9.4-12.3); Monocytes Absolute Auto 0.7 X10*3/uL (0.1-1.2); Monocytes Percent Auto 8.5 % (2-11); Neutrophils Absolute Auto 5.3 x10*3/uL (2.0-8.3); Neutrophils Percent Auto 64.4 % (45-73); Platelet Count 258 X10*3/uL (160-400); Red Blood Count 4.23 X10*6/uL (4.20-5.50); Red Cell Distribution Width 15.8 % (11.0-16.0); White Blood Count 8.1 X10*3/uL (4.8-10.8)
[2024-05-23 23:06] LABS: Alanine Aminotransferase 21 U/L (0-31); Albumin Level 4.1 g/dL (3.5-5.0); Alkaline Phosphatase 136 U/L (39-117); Anion Gap 13 (12-20); Aspartate Amino Transferase 19 U/L (5-31); Bilirubin Total 0.1 mg/dL (0.0-1.0); Blood Urea Nitrogen 12 mg/dL (9-16); Calcium 9.5 mg/dL (8.4-10.2); Carbon Dioxide 27 mmol/L (22-29); Chloride 106 mmol/L (96-108); Creatinine Clr Calc Pharmacy 124.3; Estimated Glomerular Filt Rate > 60; Glucose Random 120 mg/dL (60-115); Potassium 3.7 mmol/L (3.3-5.1); Sodium 142 mmol/L (135-145); Total Protein 6.5 g/dL (6.5-8.0)
[2024-05-23 23:14] LABS: Troponin-I High Sensitivity < 2.7 ng/L (<3.5-17.0)
[2024-05-24] VITALS: BP 148/88; PULSE 98; RESP 15; O2SAT 96
--- NOTE | 2024-05-24 01:14 | ED.FALL ---
HPI - Fall General Chief Complaint: Fall Stated Complaint: unwit fall, mid-low back pain Time Seen by Provider: 05/23/24 23:50 Source: patient Mode of arrival: ambulatory History of Present Illness ED Provider: Dr. Raymond Contreras HPI Narrative: 48 yo female with past medical history of multiple SI attempts, borderline personality disorder, HLD, GERD, bronchitis who presents emergency department for evaluation of dizziness, fall , suicidal ideation and self cutting. Patient states that prior to coming to the emergency department she felt dizzy, lightheaded and fell backwards landing on her back. She denied any head injury or loss of consciousness. She is currently complaining of lower back pain. She denied headache, nausea, vomiting, numbness or weakness. She also states that she was feeling suicidal and did cut her left arm with her fingernails prior to coming to the emergency department. The patient did write a suicide note as well. Related Data Home Medications ?Medication ?Instructions ?Recorded ?Confirmed fluoxetine 40 mg capsule 80 mg PO DAILY 08/25/23 05/14/24 lorazepam 0.5 mg tablet 0.5 mg PO BID PRN Anxiety 08/31/23 05/14/24 albuterol sulfate 90 mcg/actuation 2 inh inhalation Q4H PRN Shortness 09/17/23 05/14/24 aerosol inhaler (Ventolin HFA) Of Breath Or Wheezing atorvastatin 10 mg tablet 10 mg PO DAILY 10/04/23 05/14/24 benztropine 1 mg tablet 1 mg PO BID 10/04/23 05/14/24 metformin 500 mg tablet 500 mg PO BID 10/04/23 05/14/24 prazosin 2 mg capsule 4 mg PO BEDTIME 11/18/23 05/14/24 buspirone 10 mg tablet 10 mg PO BID 01/09/24 05/14/24 mirtazapine 15 mg tablet 7.5 mg PO BEDTIME 01/09/24 05/14/24 clozapine 25 mg tablet (Clozaril) 100 mg PO BEDTIME 05/14/24 05/14/24 fluphenazine HCl 5 mg tablet 5 mg PO BID 05/14/24 05/14/24 Previous Rx's ?Medication ?Instructions ?Recorded haloperidol 5 mg tablet 5 mg PO TID@0900,1530,2100 30 days 11/29/23 #90 tabs nebulizer accessories (Reusable #1 ea 04/19/24 Nebulizer Kit) nystatin 100,000 unit/gram topical 1 appl topical QID #30 grams 05/14/24 ointment Allergies Allergy/AdvReac Type Severity Reaction Status Date / Time azithromycin [AZITHROMYCIN] Allergy Severe Rash Verified 05/23/24 21:33 Fish Containing Products Allergy Severe Anaphylaxis Verified 05/23/24 21:33 codeine [Codeine] Allergy Intermediate Rash Verified 05/23/24 21:33 Penicillins Allergy Intermediate Rash Verified 05/23/24 21:33 prednisone [Prednisone] Allergy Intermediate Rash Verified 05/23/24 21:33 Sulfa (Sulfonamide Allergy Intermediate Rash Verified 05/23/24 21:33 Antibiotics) [Sulfa (Sulfonamides)] ziprasidone [From Geodon] Allergy Intermediate dysuria, Verified 05/23/24 21:33 rash lithium Allergy Rash Verified 05/23/24 21:33 Review of Systems Review of Systems: Yes all other systems are reviewed and are negative PMFSH Past Medical History Medical History Asthma Suicidal ideation MDD (major depressive disorder), recurrent episode, severe Chest pain Acute anxiety COVID-19 Full body hives Major depression Dizziness Suicide attempt UTI (urinary tract infection) Acetaminophen overdose COVID History of attempted suicide History of non-suicidal self-harm Hypomagnesemia Suicide attempt Suicide attempt by acetaminophen overdose Acetaminophen overdose Depression Diabetes type 2, controlled Borderline personality disorder PTSD (post-traumatic stress disorder) Overdose GERD (gastroesophageal reflux disease) Mood disorder Hyperlipidemia Bronchitis Social History Social History Household Members: None Household Members Other:: half-way Housing: Other Housing Other:: Jail Do you presently have visiting nurse or other home services: No Unable to assess alcohol history related to: Unknown Alcohol intake: former Comment: sitter in room Patient Tobacco Use Status: Former Tobacco user Tobacco use type: Cigarette Cigarette Packs Per Day: 1 Cigarettes Per Day: 20.0 Years Smoked: 22 Smoked in Last 30 Days: Yes e-Cigarette/Vaping Use: Never Used Second Hand Smoke Exposure: No Use of substances other than those prescribed or required for medical reasons: No Substance Use Type: Marijuana Advance Directives: No Advance Directives Information Provided: No Do you have a plan to hurt others: No Plan Patient : No service: No Current occupational status: unemployed and disabled Sexual orientation: Straight/Heterosexual Physical Exam Vital Signs: Vital Signs: Last Vital Signs Temp 98.4 F 05/23/24 22:00 Pulse 98 05/24/24 00:00 Resp 15 05/24/24 00:00 BP 148/88 H 05/24/24 00:00 Pulse Ox 96 05/24/24 00:00 O2 Del Method Room Air 05/23/24 21:34 BMI result Body Mass Index 41.6 Vital signs revealed an elevated blood pressure otherwise unremarkable Exam: General: Awake, alert in no distress Head: Normocephalic, atraumatic EENT: PERRL, Lids normal, sclera normal, conjunctiva normal, nose normal , ears normal, throat without erythema or exudates Neck: Supple, no adenopathy Lung: breath sounds symmetric, no wheezing, rales or rhonchi Chest: symmetric movement, nontender Heart: regular rate and rhythm, normal S1, S2 no murmurs or rubs Abdomen: soft, non-tender, nondistended, normal bowel sounds Back: no vertebral tenderness, no CVAT, patient does have tenderness palpation of her paraspinal muscles in lumbar sacral area bilaterally Extremities: no deformities, patient has several new linear your superficial abrasions to her left forearm as well as multiple old abrasions, there is no active bleeding, no suturable lacerations and no evidence for cellulitis Neuro: Awake, alert, oriented, normal speech, cranial nerves intact, moves all extremities symmetrically Psych: Pleasant, cooperative Medical Decision Making Medical Decision Making MDM Narrative: 48 yo female with past medical history of multiple SI attempts, borderline personality disorder, HLD, GERD, bronchitis who presents emergency department for evaluation of dizziness, fall , suicidal ideation and self cutting. Patient stated that she got dizzy prior to coming to the emergency department, fell backwards and landed on her back, she did not strike her head or have any loss of consciousness. Currently complaining of lower back pain. She also cut her left forearm with her fingernails prior to coming to the emergency department. Patient also wrote a suicide note. Vital signs revealed elevated blood pressure otherwise unremarkable. Physical examination did reveal lower back pain but no table tenderness. She also has abrasions to her left forearm which are superficial, some appear to be new but there are also old abrasions. Differential diagnosis: ?Includes but is not limited to vertebral fracture, back contusion, depression, anxiety, suicidal ideation Course: 01:25 Start physician observation The patient's laboratory evaluation was interpreted by me: CBC was normal. Glucose was elevated 120. Alk-phos elevated 136. Troponin was below detectable limits. Urine tox screen was negative. Urinalysis was negative urine test was negative Given her examination I do not think that the patient needs x-rays of her back, head or neck. The patient is medically cleared and will need to be evaluated by our care team. Patient will remain in the emergency department [facility] until disposition can be determined or until patient's symptoms improve over time. 02:28 Continue physician observation At the end of my shift, the patient is waiting to be evaluated by the care team. Therefore the patient's care was turned over to my colleague, Dr. Vito Mitchell Admission/Observation Consideration of admission/observation: Escalation of care including admission/observation considered Lab Data MDM Lab Attestation statement: I reviewed the patient's lab results. 05/23/24 22:45 05/23/24 22:45 Labs: Lab Results 05/23/24 05/24/24 Range/Units 22:45 01:23 WBC 8.1 (4.8-10.8) X10*3/uL RBC 4.23 (4.20-5.50) X10*6/uL Hgb 12.9 (12.0-16.0) g/dl Hct 38.2 (37.0-47.0) % MCV 90.3 (80.0-98.0) fL MCH 30.5 (27.0-33.0) pg MCHC 33.8 (31.0-35.0) g/dl RDW 15.8 (11.0-16.0) % Plt Count 258 (160-400) X10*3/uL MPV 9.1 L (9.4-12.3) fL Immature Gran % (Auto) 0.5 H (0.0-0.4) % Neut % (Auto) 64.4 (45-73) % Lymph % (Auto) 22.1 (20-40) % [place] % (Auto) 8.5 (2-11) % Eos % (Auto) 4.1 H (0-4) % Baso % (Auto) 0.4 (0-2) % Lymph # (Auto) 1.8 (1.2-4.9) X10*3/uL [place] # (Auto) 0.7 (0.1-1.2) X10*3/uL Eos # (Auto) 0.3 (0.0-0.4) X10*3/uL Baso # (Auto) 0.0 (0.0-0.2) X10*3/uL Abs Immat Gran (auto) 0.04 H (0.00-0.03) X10*3/uL Absolute Neuts (auto) 5.3 (2.0-8.3) x10*3/uL Absolute Nucleated RBC 0.000 (0.0-0.012) X10*3/uL Nucleated RBC % (auto) 0.0 (0.0-0.2) /100WBC Sodium 142 (135-145) mmol/L Potassium 3.7 (3.3-5.1) mmol/L Chloride 106 (96-108) mmol/L Carbon Dioxide 27 (22-29) mmol/L Anion Gap 13 (12-20) BUN 12 (9-16) mg/dL Creatinine 0.71 (0.5-1.4) mg/dL Estim Creat Clear Calc 124.3 Estimated GFR > 60 Random Glucose 120 H (60-115) mg/dL Calcium 9.5 (8.4-10.2) mg/dL Total Bilirubin 0.1 (0.0-1.0) mg/dL AST 19 (5-31) U/L ALT 21 (0-31) U/L Alkaline Phosphatase 136 H (39-117) U/L Troponin I High Sens < 2.7 (<3.5-17.0) ng/L Total Protein 6.5 (6.5-8.0) g/dL Albumin 4.1 (3.5-5.0) g/dL Urine Color Yellow Urine Appearance Clear Urine pH 6.0 (5.0-9.0) Ur Specific [place] 1.010 (1.005-1.025) Urine Protein Negative (Neg-Trace) mg/dL Urine Glucose (UA) Negative (Negative) mg/dL Urine Ketones Negative (Negative) mg/dL Urine Blood Negative (Negative) Urine Nitrite Negative (Negative) Ur Leukocyte Esterase Negative (Negative) Urine RBC 0-2 (0-2) /HPF Urine WBC 0-5 (0-5) /HPF Ur Squamous Epith Cells 0-2 (0-2) /HPF Urine Bacteria None Seen (None Seen) Hyaline Casts 0-2 (0-2) /LPF Urine Test NEGATIVE (NEGATIVE) Urine Opiates Screen Not Detected (Not Detect) Ur Buprenorphine Scrn Not Detected (Not Detect) ng/mL Ur Oxycodone Screen Not Detected (Not Detect) ng/mL Urine Methadone Screen Not Detected (Not Detect) ng/mL Urine Fentanyl Screen Not Detected (Not Detect) Ur Barbiturates Screen Not Detected (Not Detect) Ur Phencyclidine Scrn Not Detected (Not Detect) Ur Amphetamines Screen Not Detected (Not Detect) U Benzodiazepines Scrn Not Detected (Not Detect) Urine Cocaine Screen Not Detected (Not Detect) U Marijuana (THC) Screen Not Detected (Not Detect) Discharge Plan Discharge Clinical Impression: Suicidal ideation, Dizziness, Fall, Back contusion Patient Disposition: Still a Patient Prescriptions: No Action fluoxetine 40 mg capsule 80 mg PO DAILY lorazepam 0.5 mg tablet 0.5 mg PO BID PRN (Reason: Anxiety) prazosin 2 mg capsule 4 mg PO BEDTIME haloperidol 5 mg Tablet 5 mg PO TID@0900,1530,2100 30 Days Qty: 90 0RF clozapine [Clozaril] 25 mg tablet 100 mg PO BEDTIME nystatin 100,000 unit/gram ointment 1 appl topical QID Qty: 30 1RF fluphenazine HCl 5 mg tablet 5 mg PO BID albuterol sulfate [Ventolin HFA] 90 mcg/actuation HFA aerosol inhaler 2 inh inhalation Q4H PRN (Reason: Shortness Of Breath Or Wheezing) metformin 500 mg tablet 500 mg PO BID atorvastatin 10 mg tablet 10 mg PO DAILY benztropine 1 mg tablet 1 mg PO BID buspirone [BuSpar] 10 mg Tablet 10 mg PO BID mirtazapine 15 mg Tablet 7.5 mg PO BEDTIME (DME) Reusable Nebulizer Kit Kit See Rx Instructions .Route Qty: 1 0RF Rx Instructions: As directed Print Language: Ukrainian
[2024-05-24 01:28] LABS: Appearance Urine Clear; Color Urine Yellow; Glucose Urine UA Negative (Negative); Leukocyte Esterase Urine Negative (Negative); Nitrite Urine Negative (Negative); Urine Blood Negative (Negative); Urine Ketones Negative (Negative); Urine Protein Negative (Neg-Trace)
[2024-05-24 01:29] LABS: UPreg QC Valid YES; Urine Pregnancy NEGATIVE (NEGATIVE)
[2024-05-24 01:31] LABS: Bacteria Urine None Seen (None Seen); Hyaline Casts Urine 0-2 /LPF (0-2); RBC Urine 0-2 /HPF (0-2); Squamous Epithelial Cell Urine 0-2 /HPF (0-2); WBC Urine 0-5 /HPF (0-5)
--- NOTE | 2024-05-24 01:35 | PC.NURSE ---
Report given to Elisa Fitzpatrick RN
--- NOTE | 2024-05-24 01:48 | PC.NURSE ---
pt from main ed, pt asked for and received food, pt watching tv, at this time
[2024-05-24 02:04] LABS: Amphetamine Screen Urine Not Detected (Not Detect); Barbiturates, Urine Not Detected (Not Detect); Benzodiazepines Screen Urine Not Detected (Not Detect); Buprenorphine Scr Not Detected (Not Detect); Cannabinoid Screen Urine Not Detected (Not Detect); Cocaine Screen Urine Not Detected (Not Detect); Fentanyl, urine Not Detected (Not Detect); Methadone Screen, Urine Not Detected (Not Detect); Opiate Screen Urine Not Detected (Not Detect); Oxycodone Screen Urine Not Detected (Not Detect); Phencyclidine Screen Urine Not Detected (Not Detect)
--- NOTE | 2024-05-24 06:01 | PC.NURSE ---
pt c/o that her asthma is bothering her, and requests something for it, spoke with the Doctor and he is going to order her something
[2024-05-24] MEDS: Albuterol Sulfate 90 MCG 8 GM INHALER 4 PUFF INHALE (07:19)
[2024-05-24 08:18] VITALS: BP 136/90; PULSE 108; RESP 18; TEMP 36.6; O2SAT 93
--- NOTE | 2024-05-24 08:20 | MHC.CARE ---
Lucita now resides at the [facility] and her number is incorrect in [employer]. For discharge planning and collateral information the phone number to her [facility] is [phone].
--- NOTE | 2024-05-24 08:21 | MHC.CARE ---
Pt does not meet [facility] at this time and will be discharged back to her .
== END 2024-05-24 08:23 | disposition home or self-care (01) ==
PROVIDERS: Emergency Provider Emergency Medicine Emergency Medical Services; PCP Nurse Practitioner Family
DX: S50.812A Abrasion of left forearm, initial encounter (principal); X83.8XXA Intentional self-harm by other specified means, initial encounter; S30.0XXA Contusion of lower back and pelvis, initial encounter; W18.30XA Fall on same level, unspecified, initial encounter; R45.851 Suicidal ideations; R42 Dizziness and giddiness; Y93.9 Activity, unspecified; Y92.9 Unspecified place or not applicable; Y99.9 Unspecified external cause status; Z91.51 Personal history of suicidal behavior; E11.9 Type 2 diabetes mellitus without complications; E78.5 Hyperlipidemia, unspecified; F33.2 Major depressive disorder, recurrent severe without psychotic features; F43.10 Post-traumatic stress disorder, unspecified; F60.3 Borderline personality disorder; Z87.891 Personal history of nicotine dependence; F12.90 Cannabis use, unspecified, uncomplicated; J45.909 Unspecified asthma, uncomplicated; Z79.899 Other long term (current) drug therapy; Z79.02 Long term (current) use of antithrombotics/antiplatelets
CPT/HCPCS: 36415; 80053; 80307; 81001; 81025; 84484; 85025; 99285; S9485

== ENCOUNTER 2024-05-25 22:48 | Emergency (ER) | payer MEDICARE, MEDICAID, SELFPAY ==
--- NOTE | ~2024-05-25 | XR_ITS ---
EXAMINATION: XR CHEST CLINICAL INFORMATION: Shortness of breath COMPARISON: 04/30/2024 TECHNIQUE: 2 views of the chest were obtained. FINDINGS: No significant abnormality is noted involving the heart, lungs, mediastinum, bony thorax or soft tissues. XR/XR chest 2V IMPRESSION: Unremarkable examination.
[2024-05-25 23:15] VITALS: BP 125/94; BP 140/98; PULSE 114; PULSE 120; RESP 20; TEMP 36.3; O2SAT 95; O2SAT 96; BMI 39.9
[2024-05-26 00:24] LABS: MANUAL DIFF FLAG NO
[2024-05-26 00:31] LABS: Basophils Percent Auto 0.6 % (0-2); Eosinophils Absolute Auto 0.3 X10*3/uL (0.0-0.4); Eosinophils Percent Auto 4.8 % (0-4); Hematocrit 40.2 % (37.0-47.0); Hemoglobin 13.3 g/dl (12.0-16.0); Imm Gran Abs Auto 0.08 X10*3/uL (0.00-0.03); Imm Gran Pct Auto 1.1 % (0.0-0.4); Lymphocytes Absolute Auto 2.1 X10*3/uL (1.2-4.9); Lymphocytes Percent Auto 29.8 % (20-40); Mean Corpuscular HGB Conc 33.1 g/dl (31.0-35.0); Mean Corpuscular Hemoglobin 30.1 pg (27.0-33.0); Monocytes Absolute Auto 0.5 X10*3/uL (0.1-1.2); Monocytes Percent Auto 7.6 % (2-11); Neutrophils Percent Auto 56.1 % (45-73); Platelet Count 269 X10*3/uL (160-400); Red Blood Count 4.42 X10*6/uL (4.20-5.50); Red Cell Distribution Width 15.2 % (11.0-16.0); White Blood Count 7.1 X10*3/uL (4.8-10.8)
[2024-05-26 00:42] LABS: Alanine Aminotransferase 23 U/L (0-31); Albumin Level 4.3 g/dL (3.5-5.0); Alkaline Phosphatase 137 U/L (39-117); Anion Gap 16 (12-20); Aspartate Amino Transferase 20 U/L (5-31); Bilirubin Total 0.2 mg/dL (0.0-1.0); Blood Urea Nitrogen 8 mg/dL (9-16); Calcium 9.1 mg/dL (8.4-10.2); Carbon Dioxide 24 mmol/L (22-29); Chloride 104 mmol/L (96-108); Creatinine Clr Calc Pharmacy 111.9; Estimated Glomerular Filt Rate > 60; Glucose Random 134 mg/dL (60-115); Potassium 3.6 mmol/L (3.3-5.1); Sodium 140 mmol/L (135-145)
[2024-05-26 01:13] LABS: Influenza A PCR NEGATIVE (Negative); Influenza B PCR NEGATIVE (Negative); Resp Syncy Virus RNA Qual PCR NEGATIVE (Negative); SARS COV2 PCR INHOUSE NEGATIVE (Negative)
--- NOTE | 2024-05-26 01:30 | ED.GENADULT ---
HPI - General Adult General Chief complaint: Dyspnea Stated complaint: diff breathing, started 5pm became worse, hx COPD Time Seen by Provider: 05/26/24 01:18 Source: patient, RN notes reviewed and old records reviewed Mode of arrival: EMS Limitations: no limitations History of Present Illness ED Provider: Hilda HPI narrative: 48-year-old female with past medical history significant for major depressive disorder, PTSD borderline personality disorder, GERD, diabetes, asthma presents for evaluation of shortness of breath Patient reports complaining of shortness of breath since 5:00 p.m., a few hours prior to arrival. She reports she has a prescription for a nebulizer but ?they will not let me use it because there is no doctor's order. ? She denies any fevers, chills pain Denies any cough or chest pain Denies any leg swelling. She has no other complaints or concerns at this time Related Data Home Medications ?Medication ?Instructions ?Recorded ?Confirmed albuterol sulfate 90 mcg/actuation 2 puff inhalation Q6H PRN Dyspnea 05/24/24 05/24/24 aerosol inhaler (Ventolin HFA) ascorbic acid (vitamin C) 500 mg 500 mg PO BID 05/24/24 05/24/24 tablet (Vitamin C) atorvastatin 10 mg tablet 10 mg PO BEDTIME 05/24/24 05/24/24 buspirone 10 mg tablet 10 mg PO BID 05/24/24 05/24/24 clozapine 100 mg tablet 100 mg PO DAILY 05/24/24 05/24/24 famotidine 10 mg tablet (Heartburn 10 mg PO BID 05/24/24 05/24/24 Relief (famotidine)) ferrous sulfate 325 mg (65 mg 325 mg PO BID 05/24/24 05/24/24 iron) tablet,delayed release fluticasone 100 mcg-salmeterol 50 1 ea inhalation BID 05/24/24 05/24/24 mcg/dose blistr powdr for inhalation (Advair Diskus) metformin 500 mg tablet 500 mg PO BID 05/24/24 05/24/24 montelukast 10 mg tablet 10 mg PO BEDTIME 05/24/24 05/24/24 ondansetron 4 mg disintegrating 4 mg PO BID PRN Nausea 05/24/24 05/24/24 tablet pantoprazole 40 mg tablet,delayed 40 mg PO DAILY 05/24/24 05/24/24 release tiotropium bromide 18 mcg capsule 1 cap inhalation DAILY 05/24/24 05/24/24 with inhalation device (Spiriva with HandiHaler) Allergies Allergy/AdvReac Type Severity Reaction Status Date / Time azithromycin [AZITHROMYCIN] Allergy Severe Rash Verified 05/25/24 23:23 Fish Containing Products Allergy Severe Anaphylaxis Verified 05/25/24 23:23 codeine [Codeine] Allergy Intermediate Rash Verified 05/25/24 23:23 Penicillins Allergy Intermediate Rash Verified 05/25/24 23:23 prednisone [Prednisone] Allergy Intermediate Rash Verified 05/25/24 23:23 Sulfa (Sulfonamide Allergy Intermediate Rash Verified 05/25/24 23:23 Antibiotics) [Sulfa (Sulfonamides)] ziprasidone [From Geodon] Allergy Intermediate dysuria, Verified 05/25/24 23:23 rash lithium Allergy Rash Verified 05/25/24 23:23 Review of Systems Constitutional: Constitutional: Denies body ache(s), Denies chills and Denies fever(s) Eyes: Eyes: Denies blurry vision Cardiovascular: Cardiovascular: Denies chest pain and Reports dyspnea Respiratory: Respiratory: Denies cough and Reports dyspnea Gastrointestinal: Gastrointestinal: Denies abdominal pain, Denies nausea and Denies vomiting Musculoskeletal: Musculoskeletal: Denies back pain Integumentary/Breasts: Skin/Breast: Denies rash Psychiatric: Psychiatric: Denies suicidal ideation PMFSH Past Medical History Medical History Asthma Suicidal ideation MDD (major depressive disorder), recurrent episode, severe Chest pain Acute anxiety COVID-19 Full body hives Major depression Dizziness Suicide attempt UTI (urinary tract infection) Acetaminophen overdose COVID History of attempted suicide History of non-suicidal self-harm Hypomagnesemia Suicide attempt Suicide attempt by acetaminophen overdose Acetaminophen overdose Depression Diabetes type 2, controlled Borderline personality disorder PTSD (post-traumatic stress disorder) Overdose GERD (gastroesophageal reflux disease) Mood disorder Hyperlipidemia Bronchitis Social History Social History Household Members: None Household Members Other:: fdc Housing: Other Housing Other:: Longterm Do you presently have visiting nurse or other home services: No Unable to assess alcohol history related to: Unknown Alcohol intake: former Comment: sitter in room Patient Tobacco Use Status: Former Tobacco user Tobacco use type: Cigarette Cigarette Packs Per Day: 1 Cigarettes Per Day: 20.0 Years Smoked: 22 e-Cigarette/Vaping Use: Never Used Second Hand Smoke Exposure: No Substance Use Type: Marijuana Advance Directives: No Advance Directives Information Provided: Yes service: No Current occupational status: unemployed and disabled Sexual orientation: Straight/Heterosexual Physical Exam ED Vital Signs: Vital Signs - 24 hr 05/25/24 23:15 Temperature 97.4 F Pulse Rate 114 H Respiratory Rate 20 Blood Pressure 125/94 H Pulse Oximetry 95 Oxygen Delivery Method Room Air BMI result Body Mass Index 39.9 Const General: healthy appearing, comfortable, no acute distress, alert and awake Nutritional Appearance: well nourished Orientation/consciousness: patient oriented x3 HENMT Head: Yes normocephalic and Yes atraumatic Throat: Yes posterior oropharynx normal Eyes Eyelids: Yes eyelids normal Conjunctivae: conjunctivae normal Sclerae: sclerae normal Corneas: corneas normal Pupils: Equal, round and reactive pupils present EOM: EOMs intact bilaterally Neck Neck: Yes full ROM Resp Effort & Inspection: normal respiratory effort, able to speak in complete sentences, no audible wheezes and not labored Auscultation: clear to auscultation bilaterally Cardio Rate: regular rate Rhythm: regular rhythm GI Inspection: No distended Palpation (GI): Soft to palpation, not firm, nontender, no guarding and not rigid Skin General skin exam: elasticity normal Neuro General: patient oriented x3 Cranial nerves: Yes Equal, round and reactive pupils present and Yes Bilaterally intact EOM present Cognition (Neuro): normal cognition Extrem Other: Moving all extremities well without any obvious deformities Medical Decision Making Medical Decision Making [facility] Narrative: 48-year-old female past medical history as documented above presents for evaluation of shortness of breath over the last few hours. She is resting comfortably in no acute distress. Her vital signs are stable, her oxygen saturation is 95% or better. The patient had a workup that included viral swabs, labs and a chest x-ray, all of which was reassuring. Her lungs are clear to auscultation. Plan to continue all treat medications as currently prescribed. She has no sign of bacterial infection, she is not hypoxic. Differential Diagnosis Differential Diagnoses: The differential diagnosis associated with the presentation includes Anxiety Acute asthma exacerbation Upper respiratory infection Viral syndrome Pneumonia Dyspnea Lab Data [facility] Lab Attestation statement: I reviewed the patient's lab results. No leukocytosis, left shift. No significant anemia. Electrolytes showed no significant abnormalities, renal function within normal limits, random glucose elevated to 134. No evidence of DKA. 05/26/24 00:15 05/26/24 00:15 Labs: Lab Results 05/26/24 Range/Units 00:15 WBC 7.1 (4.8-10.8) X10*3/uL RBC 4.42 (4.20-5.50) X10*6/uL Hgb 13.3 (12.0-16.0) g/dl Hct 40.2 (37.0-47.0) % MCV 91.0 (80.0-98.0) fL MCH 30.1 (27.0-33.0) pg MCHC 33.1 (31.0-35.0) g/dl RDW 15.2 (11.0-16.0) % Plt Count 269 (160-400) X10*3/uL MPV 9.0 L (9.4-12.3) fL Immature Gran % (Auto) 1.1 H (0.0-0.4) % Neut % (Auto) 56.1 (45-73) % Lymph % (Auto) 29.8 (20-40) % Rains % (Auto) 7.6 (2-11) % Eos % (Auto) 4.8 H (0-4) % Baso % (Auto) 0.6 (0-2) % Lymph # (Auto) 2.1 (1.2-4.9) X10*3/uL Rains # (Auto) 0.5 (0.1-1.2) X10*3/uL Eos # (Auto) 0.3 (0.0-0.4) X10*3/uL Baso # (Auto) 0.0 (0.0-0.2) X10*3/uL Abs Immat Gran (auto) 0.08 H (0.00-0.03) X10*3/uL Absolute Neuts (auto) 4.0 (2.0-8.3) x10*3/uL Absolute Nucleated RBC 0.000 (0.0-0.012) X10*3/uL Nucleated RBC % (auto) 0.0 (0.0-0.2) /100WBC Sodium 140 (135-145) mmol/L Potassium 3.6 (3.3-5.1) mmol/L Chloride 104 (96-108) mmol/L Carbon Dioxide 24 (22-29) mmol/L Anion Gap 16 (12-20) BUN 8 L (9-16) mg/dL Creatinine 0.77 (0.5-1.4) mg/dL Estim Creat Clear Calc 111.9 Estimated GFR > 60 Random Glucose 134 H (60-115) mg/dL Calcium 9.1 (8.4-10.2) mg/dL Total Bilirubin 0.2 (0.0-1.0) mg/dL AST 20 (5-31) U/L ALT 23 (0-31) U/L Alkaline Phosphatase 137 H (39-117) U/L Total Protein 7.0 (6.5-8.0) g/dL Albumin 4.3 (3.5-5.0) g/dL Influenza Type A (PCR) NEGATIVE (Negative) Influenza Type B (PCR) NEGATIVE (Negative) RSV RNA Qual (PCR) NEGATIVE (Negative) SARS-CoV-2 RNA (RT-PCR) NEGATIVE (Negative) Independent Interpretation I performed an independent interpretation of an: Plain X-Ray Interpretation: No focal infiltrates Radiology Impression Discussion of test interpretation with radiology: I have reviewed the radiologist's reading. Radiologist Impression: FINDINGS: No significant abnormality is noted involving the heart, lungs, mediastinum, bony thorax or soft tissues. XR/XR chest 2V IMPRESSION: Unremarkable examination. Discharge Plan Discharge Clinical Impression: Acute dyspnea Patient Disposition: Home, Self-Care Instructions: Dyspnea (ED) Additional Instructions: Your workup in the ER today was reassuring. This includes your blood work, viral swabs and your chest x-ray You do not appear to be having an asthma exacerbation Your shortness of breath may be related to anxiety Take all your medications as prescribed and follow-up with your primary doctor Return for new or worsening symptoms Prescriptions: No Action metformin 500 mg tablet 500 mg PO BID famotidine [Heartburn Relief (famotidine)] 10 mg tablet 10 mg PO BID atorvastatin 10 mg tablet 10 mg PO BEDTIME ascorbic acid (vitamin C) [Vitamin C] 500 mg tablet 500 mg PO BID pantoprazole 40 mg tablet,delayed release (DR/EC) 40 mg PO DAILY montelukast 10 mg tablet 10 mg PO BEDTIME fluticasone propion-salmeterol [Advair Diskus] 100-50 mcg/dose blister with device 1 ea inhalation BID albuterol sulfate [Ventolin HFA] 90 mcg/actuation HFA aerosol inhaler 2 puff inhalation Q6H PRN (Reason: Dyspnea) ferrous sulfate 325 mg (65 mg iron) tablet,delayed release (DR/EC) 325 mg PO BID ondansetron 4 mg tablet,disintegrating 4 mg PO BID PRN (Reason: Nausea) tiotropium bromide [Spiriva with HandiHaler] 18 mcg capsule, w/inhalation device 1 cap inhalation DAILY clozapine 100 mg tablet 100 mg PO DAILY buspirone 10 mg tablet 10 mg PO BID Print Language: French
--- NOTE | 2024-05-26 02:01 | PC.NURSE ---
pt resting queitly on stretcher at this time, resp with ease, eyes closed, no s/s of any acute distress.
--- NOTE | 2024-05-26 04:41 | PC.NURSE ---
pt awake, and up to the bathroom, no assistance needed
--- NOTE | 2024-05-26 06:46 | PC.NURSE ---
Updated pt's phone number for custodial, pt did not know it, gave pt the number, she is going to call them to come and get her
[2024-05-26 06:47] VITALS: BP 139/73; PULSE 82; RESP 18; TEMP 36.4; O2SAT 94
== END 2024-05-26 06:34 | disposition home or self-care (01) ==
PROVIDERS: Emergency Provider Emergency Medicine
DX: R06.02 Shortness of breath (principal); F33.1 Major depressive disorder, recurrent, moderate; E11.9 Type 2 diabetes mellitus without complications; Z79.84 Long term (current) use of oral hypoglycemic drugs; Z79.899 Other long term (current) drug therapy; Z87.891 Personal history of nicotine dependence; Z03.818 Encounter for observation for suspected exposure to other biological agents ruled out
CPT/HCPCS: 0241U; 71046; 80053; 85025; 99283

== ENCOUNTER 2024-05-29 23:09 | Emergency (ER) | payer MEDICARE, MEDICAID, SELFPAY ==
[2024-05-29 23:19] VITALS: BP 138/84; BP 176/104; PULSE 121; PULSE 134; RESP 16; TEMP 36.4; O2SAT 96; O2SAT 97; BMI 35.0
--- NOTE | 2024-05-29 23:43 | ED_ITS ---
HPI - Psych General Chief Complaint: Psychiatric Symptoms Stated Complaint: si, hallucinations Time Seen by Provider: 05/29/24 23:10 Source: patient and EMS Mode of arrival: EMS Limitations: no limitations History of Present Illness ED Provider: Dr. Eileen Ryan HPI Narrative: Patient comes to the emergency room by ambulance from her half-way. Patient states that she ?feels like crap?. Patient describes feeling like crap as feeling unsafe. Patient denies hurting herself in any way prior to coming to the hospital. Patient states that she has been hearing voices telling her to br eak objects at to hurt herself. Patient states that she is compliant with the medications. Patient states that she lives in a new half-way and overall states that this is a better fit for her than her previous half-way Related Data Home Medications ?Medication ?Instructions ?Recorded ?Confirmed albuterol sulfate 90 mcg/actuation 2 puff inhalation Q6H PRN Dyspnea 05/24/24 05/30/24 aerosol inhaler (Ventolin HFA) ascorbic acid (vitamin C) 500 mg 500 mg PO BID 05/24/24 05/30/24 tablet (Vitamin C) atorvastatin 10 mg tablet 10 mg PO BEDTIME 05/24/24 05/30/24 buspirone 10 mg tablet 10 mg PO BID 05/24/24 05/30/24 clozapine 100 mg tablet 100 mg PO BEDTIME 05/24/24 05/30/24 famotidine 10 mg tablet (Heartburn 10 mg PO BIDAC 05/24/24 05/30/24 Relief (famotidine)) ferrous sulfate 325 mg (65 mg 325 mg PO BID 05/24/24 05/30/24 iron) tablet,delayed release fluticasone 100 mcg-salmeterol 50 1 ea inhalation BID 05/24/24 05/30/24 mcg/dose blistr powdr for inhalation (Advair Diskus) metformin 500 mg tablet 500 mg PO BID 05/24/24 05/30/24 montelukast 10 mg tablet 10 mg PO BEDTIME 05/24/24 05/30/24 ondansetron 4 mg disintegrating 4 mg PO BID PRN Nausea 05/24/24 05/30/24 tablet pantoprazole 40 mg tablet,delayed 40 mg PO DAILY 05/24/24 05/30/24 release tiotropium bromide 18 mcg capsule 1 cap inhalation DAILY 05/24/24 05/30/24 with inhalation device (Spiriva with HandiHaler) benztropine 1 mg tablet 1 mg PO BID 05/30/24 05/30/24 fluoxetine 40 mg capsule 80 mg PO DAILY 05/30/24 05/30/24 fluphenazine HCl 5 mg tablet 5 mg PO BID 05/30/24 05/30/24 haloperidol 5 mg tablet 5 mg PO BID 05/30/24 05/30/24 lorazepam 0.5 mg tablet 0.5 mg PO BID PRN Anxiety 05/30/24 05/30/24 nicotine (polacrilex) 2 mg buccal 2 mg PO Q2H PRN Nicotine Cravings 05/30/24 05/30/24 lozenge prazosin 2 mg capsule 4 mg PO BID 05/30/24 05/30/24 Allergies Allergy/AdvReac Type Severity Reaction Status Date / Time azithromycin [AZITHROMYCIN] Allergy Severe Rash Verified 05/29/24 23:26 Fish Containing Products Allergy Severe Anaphylaxis Verified 05/29/24 23:26 codeine [Codeine] Allergy Intermediate Rash Verified 05/29/24 23:26 Penicillins Allergy Intermediate Rash Verified 05/29/24 23:26 prednisone [Prednisone] Allergy Intermediate Rash Verified 05/29/24 23:26 Sulfa (Sulfonamide Allergy Intermediate Rash Verified 05/29/24 23:26 Antibiotics) [Sulfa (Sulfonamides)] ziprasidone [From Geodon] Allergy Intermediate dysuria, Verified 05/29/24 23:26 rash lithium Allergy Rash Verified 05/29/24 23:26 Review of Systems Review of Systems: Constitutional : No Weight loss, No Fever, No Chills, No Night Sweats, No Fatigue, No Malaise ENT/Mouth : No Hearing loss, No Ear Pain, No Nasal Congestion, No Sinus Pain, No Hoarseness, No sore throat, No Rhinorrhea, No Swallowing Difficulty Eyes: No Eye Pain, No Swelling, No Redness, No Foreign Body, No Discharge, No Vision Changes Cardiovascular : No Chest Pain, No SOB, No Dyspnea on Exertion, No Orthopnea, No Edema, No Palpitations Respiratory : No Cough, No Sputum, No Wheezing, No Smoke Exposure, No Dyspnea Gastrointestinal : No Nausea, No Vomiting, No Diarrhea, No Constipation, No abdominal Pain, No Hematochezia, No Melena Genitourinary : no irregular bleeding, No Dysuria, No Urinary Frequency, No Hematuria, No Urinary Incontinence, No Urgency, No Flank Pain, No Urinary Flow Changes, No Hesitancy Musculoskeletal : No joint pain, No Myalgias, No Joint Swelling Skin : No Skin Lesions, No rash Neuro : No Weakness, No Numbness, No Paresthesias, No Loss of Consciousness, No Dizziness, No Headache Psych : Complaining of anxiety, feeling unsafe, hearing voices, no HI Heme/Lymph: No Bruising, No Bleeding,No Lymphadenopathy Endocrine : No Polyuria, No Polydipsia, No Temperature Intolerance [facility] Past Medical History Medical History Asthma Suicidal ideation MDD (major depressive disorder), recurrent episode, severe Chest pain Acute anxiety COVID-19 Full body hives Major depression Dizziness Suicide attempt UTI (urinary tract infection) Acetaminophen overdose COVID History of attempted suicide History of non-suicidal self-harm Hypomagnesemia Suicide attempt Suicide attempt by acetaminophen overdose Acetaminophen overdose Depression Diabetes type 2, controlled Borderline personality disorder PTSD (post-traumatic stress disorder) Overdose GERD (gastroesophageal reflux disease) Mood disorder Hyperlipidemia Bronchitis Social History Social History Household Members: None Household Members Other:: half-way Housing: Other Housing Other:: Half-Way Do you presently have visiting nurse or other home services: No Unable to assess alcohol history related to: Unknown Alcohol intake: former Comment: sitter in room Patient Tobacco Use Status: Former Tobacco user Tobacco use type: Cigarette Cigarette Packs Per Day: 1 Cigarettes Per Day: 20.0 Years Smoked: 22 e-Cigarette/Vaping Use: Never Used Second Hand Smoke Exposure: No Substance Use Type: Marijuana Advance Directives: No Advance Directives Information Provided: No Do you have a plan to hurt others: No Plan Patient : No service: No Current occupational status: unemployed and disabled Sexual orientation: Straight/Heterosexual Physical Exam Vital Signs: Vital Signs: Last Vital Signs Temp 97.6 F 05/29/24 23:19 Pulse 134 H 05/29/24 23:19 Resp 16 05/29/24 23:19 BP 176/104 H 05/29/24 23:19 Pulse Ox 96 05/29/24 23:19 O2 Del Method Room Air 05/29/24 23:19 BMI result Body Mass Index 35.0 Const: Other: Appearance: Alert. Oriented X3. No acute distress. Eyes: Pupils equal, round and reactive to light. ENT: Pharynx normal. Neck: Normal inspection. Neck supple. No lymph nodes noted. No crepitus CVS: Normal heart rate and rhythm. Pulses normal. Normal S1 and S2 Respiratory: No respiratory distress. Breath sounds normal. No Wheezing. No rales Abdomen: Soft and nontender. No rigidity. No distention. Skin: Skin warm and dry. Normal skin color. Normal skin turgor. Extremities: No lower extremity edema. No Lacerations. No Rash Neuro: Oriented X 3. No motor deficit. No sensory deficit. Moving all extremities. No slurred speech. CN 2 through 12 grossly intact Psych: calm, cooperative, normal affect Medical Decision Making Medical Decision Making MDM Narrative: Patient states that she feels well, not suicidal, no homicidal, states that she feels more relaxed and ready to be discharged. -we did not take any labs today. We have labs from May 26 2024 -care team consult pending -physician observation started at 00:30 -the care team recommends to re-evaluate the patient in the morning. Seems that since patient moved to her new half-way, there are new changes in her behavior. However, patient adamant that she is not SI or HI and feels well. Throughout the night patient has been asking the team to allow her to go back home. Patient states that she feels safe going back and is not feeling suicidal or homicidal. Care team reassessment pending. Vitals stable in the morning Differential Diagnosis Differential Diagnoses: The differential diagnosis associated with the presentation includes (Hallucinations, anxiety) Admission/Observation Consideration of admission/observation: Escalation of care including admission/observation considered (Patient is under physician observation waiting to be seen by the care team) Lab Data Labs: Lab Results 05/30/24 Range/Units 03:40 Urine Color Yellow Urine Appearance Clear Urine pH 5.5 (5.0-9.0) Ur Specific [place] <= 1.005 (1.005-1.025) Urine Protein Negative (Neg-Trace) mg/dL Urine Glucose (UA) Negative (Negative) mg/dL Urine Ketones Negative (Negative) mg/dL Urine Blood Negative (Negative) Urine Nitrite Negative (Negative) Ur Leukocyte Esterase Negative (Negative) Urine Test NEGATIVE (NEGATIVE) Urine Opiates Screen Not Detected (Not Detect) Ur Buprenorphine Scrn Not Detected (Not Detect) ng/mL Ur Oxycodone Screen Not Detected (Not Detect) ng/mL Urine Methadone Screen Not Detected (Not Detect) ng/mL Urine Fentanyl Screen Not Detected (Not Detect) Ur Barbiturates Screen Not Detected (Not Detect) Ur Phencyclidine Scrn Not Detected (Not Detect) Ur Amphetamines Screen Not Detected (Not Detect) U Benzodiazepines Scrn Not Detected (Not Detect) Urine Cocaine Screen Not Detected (Not Detect) U Marijuana (THC) Screen Not Detected (Not Detect) Critical Care Time Critical Care Time Critical Care Time: Yes Total Critical Care Time: 30 Attestation: I have personally provided critical care time. Time includes review of lab data, radiology results, discussion with consultants, and monitoring for potential decompensation. Intervention performed as documented. Discharge Plan Discharge Clinical Impression: Anxiety Prescriptions: No Action metformin 500 mg tablet 500 mg PO BID famotidine [Heartburn Relief (famotidine)] 10 mg tablet 10 mg PO BIDAC atorvastatin 10 mg tablet 10 mg PO BEDTIME ascorbic acid (vitamin C) [Vitamin C] 500 mg tablet 500 mg PO BID pantoprazole 40 mg tablet,delayed release (DR/EC) 40 mg PO DAILY montelukast 10 mg tablet 10 mg PO BEDTIME fluticasone propion-salmeterol [Advair Diskus] 100-50 mcg/dose blister with device 1 ea inhalation BID albuterol sulfate [Ventolin HFA] 90 mcg/actuation HFA aerosol inhaler 2 puff inhalation Q6H PRN (Reason: Dyspnea) ferrous sulfate 325 mg (65 mg iron) tablet,delayed release (DR/EC) 325 mg PO BID ondansetron 4 mg tablet,disintegrating 4 mg PO BID PRN (Reason: Nausea) tiotropium bromide [Spiriva with HandiHaler] 18 mcg capsule, w/inhalation device 1 cap inhalation DAILY clozapine 100 mg tablet 100 mg PO BEDTIME buspirone 10 mg tablet 10 mg PO BID nicotine (polacrilex) 2 mg lozenge 2 mg PO Q2H PRN (Reason: Nicotine Cravings) fluoxetine 40 mg capsule 80 mg PO DAILY prazosin 2 mg capsule 4 mg PO BID lorazepam 0.5 mg tablet 0.5 mg PO BID PRN (Reason: Anxiety) haloperidol 5 mg tablet 5 mg PO BID benztropine 1 mg tablet 1 mg PO BID fluphenazine HCl 5 mg tablet 5 mg PO BID Interventions: [place]-Suicide Risk Severity Scale Last Done: 05/29/24 23:50 Print Language: Omani
--- NOTE | 2024-05-30 03:20 | PC.NURSE ---
pt informed this RN that she wants to go home.
[2024-05-30 03:55] LABS: Appearance Urine Clear; Color Urine Yellow; Glucose Urine UA Negative (Negative); Leukocyte Esterase Urine Negative (Negative); Nitrite Urine Negative (Negative); PH 5.5 (5.0-9.0); Specific Gravity - Urine <= 1.005 (1.005-1.025); Urine Blood Negative (Negative); Urine Ketones Negative (Negative); Urine Protein Negative (Neg-Trace)
[2024-05-30 03:57] LABS: UPreg QC Valid YES; Urine Pregnancy NEGATIVE (NEGATIVE)
[2024-05-30 04:06] LABS: Amphetamine Screen Urine Not Detected (Not Detect); Barbiturates, Urine Not Detected (Not Detect); Benzodiazepines Screen Urine Not Detected (Not Detect); Buprenorphine Scr Not Detected (Not Detect); Cannabinoid Screen Urine Not Detected (Not Detect); Cocaine Screen Urine Not Detected (Not Detect); Fentanyl, urine Not Detected (Not Detect); Methadone Screen, Urine Not Detected (Not Detect); Opiate Screen Urine Not Detected (Not Detect); Oxycodone Screen Urine Not Detected (Not Detect); Phencyclidine Screen Urine Not Detected (Not Detect)
[2024-05-30 06:20] VITALS: BP 102/80; PULSE 102; RESP 18; TEMP 36.3; O2SAT 95
--- NOTE | 2024-05-30 06:44 | PC.NURSE ---
pt up at approx 0300, reporting her voices are really bad . pt came out of her room approx 45 min later stating that she wants to go home. encouraged to sleep until the morning when she can speak with the CARE team and coordinate getting home. pt back to bed and back to sleep until approx 0615 where she came to the nruses station requesting to speak with the care team to go home. plan of care continued. pt offers no complaints at this time.
--- NOTE | 2024-05-30 07:46 | PC.NURSE ---
Assumed care of patient at 0645, patient appears to be in no apparent distress this am, ambulating around BH pod with steady gait, respirations even and unlabored. Continue plan of care for CARE team follow up
[2024-05-30 08:00] VITALS: BP 145/70; PULSE 86; RESP 16; TEMP 36.6; O2SAT 95
== END 2024-05-30 08:02 | disposition home or self-care (01) ==
PROVIDERS: Emergency Provider Emergency Medicine
DX: R44.0 Auditory hallucinations (principal); F41.1 Generalized anxiety disorder; F43.0 Acute stress reaction; R45.851 Suicidal ideations; Z79.899 Other long term (current) drug therapy; Z51.81 Encounter for therapeutic drug level monitoring
CPT/HCPCS: 80307; 81003; 81025; 99285; S9485

== ENCOUNTER 2024-06-03 09:44 | Outpatient (REF) | payer MEDICARE, MEDICAID, SELFPAY ==
[2024-06-03 10:22] LABS: MANUAL DIFF FLAG NO
[2024-06-03 10:55] LABS: Basophils Percent Auto 0.3 % (0-2); Eosinophils Absolute Auto 0.2 X10*3/uL (0.0-0.4); Eosinophils Percent Auto 3.5 % (0-4); Hematocrit 40.3 % (37.0-47.0); Hemoglobin 13.2 g/dl (12.0-16.0); Imm Gran Abs Auto 0.04 X10*3/uL (0.00-0.03); Imm Gran Pct Auto 0.6 % (0.0-0.4); Lymphocytes Absolute Auto 1.3 X10*3/uL (1.2-4.9); Lymphocytes Percent Auto 19.4 % (20-40); Mean Corpuscular HGB Conc 32.8 g/dl (31.0-35.0); Mean Corpuscular Hemoglobin 29.9 pg (27.0-33.0); Mean Corpuscular Volume 91.2 fL (80.0-98.0); Mean Platelet Volume 9.7 fL (9.4-12.3); Monocytes Absolute Auto 0.5 X10*3/uL (0.1-1.2); Monocytes Percent Auto 7.1 % (2-11); Neutrophils Absolute Auto 4.7 x10*3/uL (2.0-8.3); Neutrophils Percent Auto 69.1 % (45-73); Platelet Count 245 X10*3/uL (160-400); Red Blood Count 4.42 X10*6/uL (4.20-5.50); Red Cell Distribution Width 14.4 % (11.0-16.0); White Blood Count 6.9 X10*3/uL (4.8-10.8)
== END 2024-06-03 09:45 | disposition home or self-care (01) ==
LOC: HO.LABR 09:44
PROVIDERS: Visit Provider Psychiatry & Neurology Psychiatry
DX: Z79.899 Other long term (current) drug therapy (principal)
CPT/HCPCS: 36415; 85025

== ENCOUNTER 2024-06-05 23:49 | Emergency (ER) | payer MEDICARE, MEDICAID, SELFPAY ==
[2024-06-06] VITALS (9 sets, daily range): BP systolic 135–184; BP diastolic 90–109; PULSE 92–125; RESP 16–20; TEMP 36.3–37; O2SAT 93–97; BMI 33.1
--- NOTE | 2024-06-06 00:07 | ED_ITS ---
HPI - Psych General Chief Complaint: Psychiatric Symptoms Stated Complaint: HEARING VOICES, VOICES TELLING HER TO SELF HARM Time Seen by Provider: 06/06/24 00:05 Source: patient Mode of arrival: EMS Limitations: no limitations History of Present Illness ED Provider: gem KIRBY Narrative: Patient's history of PTSD borderline personality disorder major depression comes here frequently this time she comes here as she hearing voices telling her to cut herself denies any SI after arrival patient feeling much better Related Data Home Medications ?Medication ?Instructions ?Recorded ?Confirmed albuterol sulfate 90 mcg/actuation 2 puff inhalation Q6H PRN Dyspnea 05/24/24 06/06/24 aerosol inhaler (Ventolin HFA) atorvastatin 10 mg tablet 10 mg PO BEDTIME 05/24/24 06/06/24 buspirone 10 mg tablet 10 mg PO BID 05/24/24 06/06/24 clozapine 100 mg tablet 100 mg PO DAILY 05/24/24 06/06/24 famotidine 10 mg tablet (Heartburn 10 mg PO BIDAC 05/24/24 06/06/24 Relief (famotidine)) metformin 500 mg tablet 500 mg PO BID 05/24/24 06/06/24 montelukast 10 mg tablet 10 mg PO BEDTIME 05/24/24 06/06/24 pantoprazole 40 mg tablet,delayed 40 mg PO DAILY 05/24/24 06/06/24 release tiotropium bromide 18 mcg capsule 1 cap inhalation DAILY 05/24/24 06/06/24 with inhalation device (Spiriva with HandiHaler) fluoxetine 40 mg capsule 80 mg PO DAILY 05/30/24 06/06/24 fluphenazine HCl 5 mg tablet 5 mg PO BID 05/30/24 06/06/24 haloperidol 5 mg tablet 5 mg PO BID 05/30/24 05/30/24 prazosin 2 mg capsule 4 mg PO BID 05/30/24 06/06/24 Allergies Allergy/AdvReac Type Severity Reaction Status Date / Time azithromycin [AZITHROMYCIN] Allergy Severe Rash Verified 06/06/24 00:05 Fish Containing Products Allergy Severe Anaphylaxis Verified 06/06/24 00:05 codeine [Codeine] Allergy Intermediate Rash Verified 06/06/24 00:05 Penicillins Allergy Intermediate Rash Verified 06/06/24 00:05 prednisone [Prednisone] Allergy Intermediate Rash Verified 06/06/24 00:05 Sulfa (Sulfonamide Allergy Intermediate Rash Verified 06/06/24 00:05 Antibiotics) [Sulfa (Sulfonamides)] ziprasidone [From Geodon] Allergy Intermediate dysuria, Verified 06/06/24 00:05 rash lithium Allergy Rash Verified 06/06/24 00:05 Review of Systems Review of Systems: Yes all other systems are reviewed and are negative PMFSH Past Medical History Medical History Asthma Suicidal ideation MDD (major depressive disorder), recurrent episode, severe Chest pain Acute anxiety COVID-19 Full body hives Major depression Dizziness Suicide attempt UTI (urinary tract infection) Acetaminophen overdose COVID History of attempted suicide History of non-suicidal self-harm Hypomagnesemia Suicide attempt Suicide attempt by acetaminophen overdose Acetaminophen overdose Depression Diabetes type 2, controlled Borderline personality disorder PTSD (post-traumatic stress disorder) Overdose GERD (gastroesophageal reflux disease) Mood disorder Hyperlipidemia Bronchitis Social History Social History Household Members: None Household Members Other:: detention Housing: Other Housing Other:: Longterm Do you presently have visiting nurse or other home services: No Unable to assess alcohol history related to: Unknown Alcohol intake: former Comment: sitter in room Patient Tobacco Use Status: Former Tobacco user Tobacco use type: Cigarette Cigarette Packs Per Day: 1 Cigarettes Per Day: 20.0 Years Smoked: 22 e-Cigarette/Vaping Use: Never Used Second Hand Smoke Exposure: No Substance Use Type: Marijuana Advance Directives: No Advance Directives Information Provided: No Do you have a plan to hurt others: No Plan service: No Current occupational status: unemployed and disabled Sexual orientation: Straight/Heterosexual Physical Exam Vital Signs: Vital Signs: Last Vital Signs Temp 97.4 F 06/06/24 02:40 Pulse 116 H 06/06/24 02:40 Resp 18 06/06/24 02:40 BP 138/96 H 06/06/24 06:27 Pulse Ox 93 06/06/24 02:40 O2 Del Method Room Air 06/06/24 02:40 BMI result Body Mass Index 33.1 Appearance: Alert. Oriented X3. No acute distress. Eyes: No pallor or icterus ENT: Pharynx normal. Oral Mucosa moist Neck: Normal inspection. Neck supple. CVS: Normal heart rate and rhythm. Pulses normal. Respiratory: No respiratory distress. Equal air entry bilateral, no wheezing/rales/rhonchi Abdomen: Soft and nontender. Bowel sounds are present, no mass palpable, no CVA tenderness Skin: Skin warm and dry. Normal skin color. Normal skin turgor. Extremities: No lower extremity edema. No calf tenderness psych: Stable mood now denies any SI or HI denies any hallucination at this time Neuro: Oriented X 3. No motor deficit. No sensory deficit.No cerebellar signs , cranial nerves II-XII intact Medications Administered Discontinued Medications Generic Name Dose Route Start Last Admin Trade Name Freq PRN Reason Stop Dose Admin Amlodipine Besylate 5 mg 06/06/24 05:11 06/06/24 06:27 Amlodipine Besylate 5 Mg Tablet PO 06/06/24 05:12 5 mg ONCE ONE Administration Protocol Clonidine HCl 0.2 mg 06/06/24 01:15 06/06/24 01:16 Clonidine Hcl 0.2 Mg Tablet PO 06/06/24 01:16 Not Given ONCE ONE Protocol Clonidine HCl 0.2 mg 06/06/24 01:15 06/06/24 01:28 Clonidine Hcl 0.2 Mg Tablet PO 06/06/24 01:16 Not Given ONCE ONE Protocol Lorazepam 2 mg 06/06/24 00:07 06/06/24 00:12 Lorazepam 1 Mg Tablet PO 06/06/24 00:08 2 mg ONCE ONE Administration Medical Decision Making Medical Decision Making [facility] Narrative: Patient feels better blood pressure improved after amlodipine will start patient on amlodipine at does have history of hypertension in the past and not taking her medication patient is to follow with psych as outlined Discharge Plan Discharge Clinical Impression: PTSD (post-traumatic stress disorder), Hypertension Patient Disposition: Still a Patient Prescriptions: No Action metformin 500 mg tablet 500 mg PO BID famotidine [Heartburn Relief (famotidine)] 10 mg tablet 10 mg PO BIDAC atorvastatin 10 mg tablet 10 mg PO BEDTIME pantoprazole 40 mg tablet,delayed release (DR/EC) 40 mg PO DAILY montelukast 10 mg tablet 10 mg PO BEDTIME albuterol sulfate [Ventolin HFA] 90 mcg/actuation HFA aerosol inhaler 2 puff inhalation Q6H PRN (Reason: Dyspnea) tiotropium bromide [Spiriva with HandiHaler] 18 mcg capsule, w/inhalation device 1 cap inhalation DAILY clozapine 100 mg tablet 100 mg PO DAILY buspirone 10 mg tablet 10 mg PO BID fluoxetine 40 mg capsule 80 mg PO DAILY prazosin 2 mg capsule 4 mg PO BID haloperidol 5 mg tablet 5 mg PO BID fluphenazine HCl 5 mg tablet 5 mg PO BID Interventions: [place]-Suicide Risk Severity Scale Last Done: 06/06/24 03:38 Print Language: Kyrgyz
[2024-06-06] MEDS: LORazepam 1 MG TABLET 2 MG PO (00:12)
[2024-06-06] MEDS: amLODIPine Besylate 5 MG TABLET PO (06:27)
--- NOTE | 2024-06-06 07:25 | PC.NURSE ---
moved to ED bed 8 in piotr jewell 1:1
--- NOTE | 2024-06-06 07:29 | PC.NURSE ---
this RN resumed care of patient at 0700. Bp woken up by night nurse to receive BP medication d.t being HTN over night. Per night RN pt did receive Clonidine 0.2mg, just it is not documented in the MAR. Night Tech reporting pt had been incon overnight, this AM pt was lethargic, not her baseline self, pt had dopped water all over herself and the floor this AM. Bp checked again L arm 184/109 HR 123, R arm 171/108 HR 121, pt reporting KONG, feeling off, denies CP, baseline SOB. Charge nurse made aware, aware, pt moved to main ED to be place on court monitor and further work up at this time.
--- NOTE | 2024-06-06 07:33 | ECG_ITS ---
Test Reason : tacky Blood Pressure : / mmHG Vent. Rate : 113 BPM Atrial Rate : 113 BPM P-R Int : 176 ms QRS Dur : 082 ms QT Int : 338 ms P-R-T Axes : 070 049 062 degrees QTc Int : 463 ms Sinus tachycardia Otherwise normal ECG When compared with ECG of 27-APR-2024 19:17, No significant change was found Referred By: Lidia Hernandez Electronically Signed By:JESU EASTMAN
--- NOTE | 2024-06-06 07:38 | PC.NURSE ---
pt brought over to ED8 from the pod d/t high BP and tachycardia from unknown source. pt denies pair, reports she feels lethargic and doesn't feel right . pt remains in [facility] 1:1 at bedside
[2024-06-06 08:05] LABS: MANUAL DIFF FLAG NO
[2024-06-06 08:08] LABS: Basophils Percent Auto 0.4 % (0-2); Eosinophils Absolute Auto 0.3 X10*3/uL (0.0-0.4); Eosinophils Percent Auto 3.3 % (0-4); Hematocrit 41.8 % (37.0-47.0); Hemoglobin 13.8 g/dl (12.0-16.0); Imm Gran Abs Auto 0.05 X10*3/uL (0.00-0.03); Imm Gran Pct Auto 0.7 % (0.0-0.4); Lymphocytes Absolute Auto 1.6 X10*3/uL (1.2-4.9); Lymphocytes Percent Auto 21.5 % (20-40); Mean Corpuscular Hemoglobin 30.3 pg (27.0-33.0); Mean Corpuscular Volume 91.7 fL (80.0-98.0); Monocytes Absolute Auto 0.7 X10*3/uL (0.1-1.2); Monocytes Percent Auto 8.8 % (2-11); Neutrophils Absolute Auto 4.9 x10*3/uL (2.0-8.3); Neutrophils Percent Auto 65.3 % (45-73); Platelet Count 251 X10*3/uL (160-400); Red Blood Count 4.56 X10*6/uL (4.20-5.50); Red Cell Distribution Width 14.3 % (11.0-16.0); White Blood Count 7.5 X10*3/uL (4.8-10.8)
[2024-06-06 08:17] LABS: INTERNATIONAL NORM RATIO 0.9 (0.9-1.1); Prothrombin Time 10.4 SEC (11.1-13.3)
[2024-06-06 08:30] LABS: Alanine Aminotransferase 21 U/L (0-31); Albumin Level 4.1 g/dL (3.5-5.0); Alkaline Phosphatase 149 U/L (39-117); Anion Gap 14 (12-20); Aspartate Amino Transferase 17 U/L (5-31); Bilirubin Direct < 0.2 mg/dL (0.0-0.5); Bilirubin Total 0.2 mg/dL (0.0-1.0); Blood Urea Nitrogen 11 mg/dL (9-16); Calcium 9.4 mg/dL (8.4-10.2); Carbon Dioxide 24 mmol/L (22-29); Chloride 108 mmol/L (96-108); Creatinine Clr Calc Pharmacy 103.5; Estimated Glomerular Filt Rate > 60; Glucose Random 137 mg/dL (60-115); Magnesium 1.9 mg/dL (1.6-2.6); Potassium 4.3 mmol/L (3.3-5.1); Sodium 142 mmol/L (135-145); Total Protein 6.7 g/dL (6.5-8.0)
[2024-06-06] MEDS: Ibuprofen 600 MG TABLET PO (08:30)
[2024-06-06 08:31] LABS: Acetaminophen LAB < 3 mcg/mL (<30); Troponin-I High Sensitivity < 2.7 ng/L (<3.5-17.0)
[2024-06-06 08:44] LABS: TSH reflex Free T4 1.53 uIU/mL (0.32-4.0)
[2024-06-06 09:01] LABS: Influenza A PCR NEGATIVE (Negative); Influenza B PCR NEGATIVE (Negative); Resp Syncy Virus RNA Qual PCR NEGATIVE (Negative); SARS COV2 PCR INHOUSE NEGATIVE (Negative)
--- NOTE | 2024-06-06 19:09 | PC.NURSE ---
late entry: this literary writer had difficulty scanning the clonidine 0.2mg dose, which was given about 0130 today and the follow up bp was checked at 0230.
== END 2024-06-06 09:57 | disposition still patient (30) ==
PROVIDERS: Emergency Medicine; Emergency Provider Internal Medicine; PCP Nurse Practitioner Family
DX: F43.10 Post-traumatic stress disorder, unspecified (principal); I10 Essential (primary) hypertension; R00.0 Tachycardia, unspecified; R44.0 Auditory hallucinations; R45.851 Suicidal ideations; R29.700 NIHSS score 0; Z03.818 Encounter for observation for suspected exposure to other biological agents ruled out; F33.2 Major depressive disorder, recurrent severe without psychotic features; F60.3 Borderline personality disorder; Z91.51 Personal history of suicidal behavior; E11.9 Type 2 diabetes mellitus without complications; E78.5 Hyperlipidemia, unspecified; K21.9 Gastro-esophageal reflux disease without esophagitis; J45.909 Unspecified asthma, uncomplicated; F12.90 Cannabis use, unspecified, uncomplicated; Z79.899 Other long term (current) drug therapy; Z79.02 Long term (current) use of antithrombotics/antiplatelets; Z79.84 Long term (current) use of oral hypoglycemic drugs; Z87.891 Personal history of nicotine dependence
CPT/HCPCS: 0241U; 36415; 80048; 80076; 80143; 83735; 84443; 84484; 85025; 85610; 93005; 99285; S9485

== ENCOUNTER 2024-06-07 11:03 | Emergency (ER) | payer MEDICARE, MEDICAID, SELFPAY ==
--- NOTE | 2024-06-07 | ECG_ITS ---
Test Reason : CHEST PAIN Blood Pressure : / mmHG Vent. Rate : 112 BPM Atrial Rate : 112 BPM P-R Int : 156 ms QRS Dur : 084 ms QT Int : 336 ms P-R-T Axes : 062 056 060 degrees QTc Int : 458 ms Sinus tachycardia Otherwise normal ECG When compared with ECG of 06-JUN-2024 07:32, No significant change was found Referred By: Lidia Hernandez Electronically Signed By:JESU EASTMAN
--- NOTE | ~2024-06-07 | XR_ITS ---
EXAMINATION: XR CHEST CLINICAL INFORMATION: Chest pain, cough COMPARISON: 05/25/2024 TECHNIQUE: Frontal view of the chest was obtained. FINDINGS: Decreased inspiratory effort. No significant abnormality is noted involving the heart, lungs, mediastinum, bony thorax or soft tissues. XR/XR chest 1V IMPRESSION: Unremarkable examination. Electronically signed by: Chico Red MD 06/07/2024 12:42 PM EDT RP
[2024-06-07 11:05] VITALS: BP 130/90; BP 141/102; PULSE 118; PULSE 120; RESP 16; TEMP 36.6; O2SAT 96; BMI 43.0
[2024-06-07 11:27] VITALS: RESP 16
--- NOTE | 2024-06-07 11:31 | ED.PSYCH ---
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 Just seen for HTN and tachycardia recently and DC yesterday after good response to her home medications. She denies travel, procedures, OCP use. She is a chronic regular daily smoker. She denies sick contacts in [facility]. She notes she also has chronic command AH. MD complaint: feels depressed and other (chest pain) Onset (ago): day(s) (2) Duration: constant History of same: Yes Relieving factors: none Exacerbating factors: other Context: other (hx of same presentation in past reports compliance with medications) Associated psychiatric symptoms: depression and auditory hallucinations Associated symptoms: other (chest pain, dyspnea) Treatments prior to arrival: none Related Data Home Medications ?Medication ?Instructions ?Recorded ?Confirmed albuterol sulfate 90 mcg/actuation 2 puff inhalation Q6H PRN Dyspnea 05/24/24 06/06/24 aerosol inhaler (Ventolin HFA) atorvastatin 10 mg tablet 10 mg PO BEDTIME 05/24/24 06/06/24 buspirone 10 mg tablet 10 mg PO BID 05/24/24 06/06/24 clozapine 100 mg tablet 100 mg PO DAILY 05/24/24 06/06/24 famotidine 10 mg tablet (Heartburn 10 mg PO BIDAC 05/24/24 06/06/24 Relief (famotidine)) metformin 500 mg tablet 500 mg PO BID 05/24/24 06/06/24 montelukast 10 mg tablet 10 mg PO BEDTIME 05/24/24 06/06/24 pantoprazole 40 mg tablet,delayed 40 mg PO DAILY 05/24/24 06/06/24 release tiotropium bromide 18 mcg capsule 1 cap inhalation DAILY 05/24/24 06/06/24 with inhalation device (Spiriva with HandiHaler) fluoxetine 40 mg capsule 80 mg PO DAILY 05/30/24 06/06/24 fluphenazine HCl 5 mg tablet 5 mg PO BID 05/30/24 06/06/24 haloperidol 5 mg tablet 5 mg PO BID 05/30/24 06/06/24 prazosin 2 mg capsule 4 mg PO BID 05/30/24 06/06/24 Previous Rx's ?Medication ?Instructions ?Recorded amlodipine 5 mg tablet 5 mg PO DAILY #30 tabs 06/06/24 cefuroxime axetil 250 mg tablet 250 mg PO BID 7 days #14 tabs 06/07/24 Allergies Allergy/AdvReac Type Severity Reaction Status Date / Time azithromycin [AZITHROMYCIN] Allergy Severe Rash Verified 06/07/24 11:06 Fish Containing Products Allergy Severe Anaphylaxis Verified 06/07/24 11:06 codeine [Codeine] Allergy Intermediate Rash Verified 06/07/24 11:06 Penicillins Allergy Intermediate Rash Verified 06/07/24 11:06 prednisone [Prednisone] Allergy Intermediate Rash Verified 06/07/24 11:06 Sulfa (Sulfonamide Allergy Intermediate Rash Verified 06/07/24 11:06 Antibiotics) [Sulfa (Sulfonamides)] ziprasidone [From Geodon] Allergy Intermediate dysuria, Verified 06/07/24 11:06 rash lithium Allergy Rash Verified 06/07/24 11:06 Review of Systems Review of Systems: Constitutional : No Fever, No Chills ENT/Mouth : No Ear Pain, No Nasal Congestion, No sore throat Eyes: No Eye Pain, No Swelling, No Redness Cardiovascular : pos Chest Pain, pos SOB Respiratory : pos Cough, No Sputum, No Dyspnea Gastrointestinal : No Nausea, No Vomiting, No Diarrhea, No Hematochezia, No Melena Genitourinary : No Dysuria, No Urinary Frequency, No Hematuria Musculoskeletal : No Myalgias Skin : No Skin Lesions, No rash Neuro : No Weakness, No Numbness, No Paresthesias, No Dizziness, No Headache Psych : positive Anxiety, positive Depression, no SI/HI All other systems reviewed and are negative PMFSH Past Medical History Attestation statement: The following information was validated with the patient. Source: old records reviewed Medical History Asthma Suicidal ideation MDD (major depressive disorder), recurrent episode, severe Chest pain Acute anxiety COVID-19 Full body hives Major depression Dizziness Suicide attempt UTI (urinary tract infection) Acetaminophen overdose COVID History of attempted suicide History of non-suicidal self-harm Hypomagnesemia Suicide attempt Suicide attempt by acetaminophen overdose Acetaminophen overdose Depression Diabetes type 2, controlled Borderline personality disorder PTSD (post-traumatic stress disorder) Overdose GERD (gastroesophageal reflux disease) Mood disorder Hyperlipidemia Bronchitis Social History Social History Household Members: None Household Members Other:: [facility] Housing: Other Housing Other:: Senior Living Do you presently have visiting nurse or other home services: No Unable to assess alcohol history related to: Unknown Alcohol intake: former Comment: sitter in room Patient Tobacco Use Status: Former Tobacco user Tobacco use type: Cigarette Cigarette Packs Per Day: 1 Cigarettes Per Day: 20.0 Years Smoked: 22 Smoked in Last 30 Days: Yes e-Cigarette/Vaping Use: Never Used Second Hand Smoke Exposure: No Use of substances other than those prescribed or required for medical reasons: No Substance Use Type: Marijuana Advance Directives: No Advance Directives Information Provided: No Patient : No service: No Current occupational status: unemployed and disabled Sexual orientation: Straight/Heterosexual Physical Exam Vital Signs: Vital Signs: Last Vital Signs Temp 97.8 F 06/07/24 11:05 Pulse 118 H 06/07/24 11:05 Resp 16 06/07/24 11:27 BP 141/102 H 06/07/24 11:05 Pulse Ox 96 06/07/24 11:05 O2 Del Method Room Air 06/07/24 11:05 BMI result Body Mass Index 43.0 Appearance: Alert. Oriented X3. No acute distress. Eyes: Pupils equal, round and reactive to light. ENT: Pharynx normal. Neck: Normal inspection. Neck supple. CVS: tachycardic heart rate and rhythm. Pulses normal. Respiratory: No respiratory distress. Breath sounds normal. Abdomen: Soft and nontender. Skin: Skin warm and dry. Normal skin color. Normal skin turgor. Extremities: No lower extremity edema. No calf ttp Neuro: Oriented X 3. No motor deficit. No sensory deficit. 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 She reports complete compliance with her medications and took all meds this AM Differential Diagnosis Differential Diagnoses: The differential diagnosis associated with the presentation includes bronchitis, anxiety, VTE, atypical chest pain Admission/Observation Consideration of admission/observation: Escalation of care including admission/observation considered at this time patient wants to go home chronic SI well known to us can be DC home recants and states she feels fine almost never goes inpatient and does not want admission CP work up negative Lab Data MDM Lab Attestation statement: I reviewed the patient's lab results. 06/07/24 11:44 06/07/24 11:44 Labs: Lab Results 06/07/24 06/07/24 Range/Units 11:36 11:44 WBC 8.3 (4.8-10.8) X10*3/uL RBC 4.59 (4.20-5.50) X10*6/uL Hgb 14.1 (12.0-16.0) g/dl Hct 41.8 (37.0-47.0) % MCV 91.1 (80.0-98.0) fL MCH 30.7 (27.0-33.0) pg MCHC 33.7 (31.0-35.0) g/dl RDW 14.1 (11.0-16.0) % Plt Count 259 (160-400) X10*3/uL MPV 9.2 L (9.4-12.3) fL Immature Gran % (Auto) 0.6 H (0.0-0.4) % Neut % (Auto) 74.0 H (45-73) % Lymph % (Auto) 14.9 L (20-40) % [place] % (Auto) 7.1 (2-11) % Eos % (Auto) 3.0 (0-4) % Baso % (Auto) 0.4 (0-2) % Lymph # (Auto) 1.2 (1.2-4.9) X10*3/uL [place] # (Auto) 0.6 (0.1-1.2) X10*3/uL Eos # (Auto) 0.3 (0.0-0.4) X10*3/uL Baso # (Auto) 0.0 (0.0-0.2) X10*3/uL Abs Immat Gran (auto) 0.05 H (0.00-0.03) X10*3/uL Absolute Neuts (auto) 6.2 (2.0-8.3) x10*3/uL Absolute Nucleated RBC 0.000 (0.0-0.012) X10*3/uL Nucleated RBC % (auto) 0.0 (0.0-0.2) /100WBC D-Dimer High Sensitivty < 150 NG/ML Sodium 140 (135-145) mmol/L Potassium 4.1 (3.3-5.1) mmol/L Chloride 108 (96-108) mmol/L Carbon Dioxide 21 L (22-29) mmol/L Anion Gap 15 (12-20) BUN 8 L (9-16) mg/dL Creatinine 0.76 (0.5-1.4) mg/dL Estim Creat Clear Calc 98.1 Estimated GFR > 60 Random Glucose 210 H (60-115) mg/dL Calcium 9.6 (8.4-10.2) mg/dL Total Bilirubin 0.2 (0.0-1.0) mg/dL AST 17 (5-31) U/L ALT 22 (0-31) U/L Alkaline Phosphatase 133 H (39-117) U/L Troponin I High Sens < 2.7 (<3.5-17.0) ng/L Total Protein 6.9 (6.5-8.0) g/dL Albumin 4.2 (3.5-5.0) g/dL Urine Color Yellow Urine Appearance Clear Urine pH 6.0 (5.0-9.0) Ur Specific [place] <= 1.005 (1.005-1.025) Urine Protein Negative (Neg-Trace) mg/dL Urine Glucose (UA) Negative (Negative) mg/dL Urine Ketones Negative (Negative) mg/dL Urine Blood Negative (Negative) Urine Nitrite Positive H (Negative) Ur Leukocyte Esterase Moderate (2+) H (Negative) Urine RBC 0-2 (0-2) /HPF Urine WBC 21-50 H (0-5) /HPF Ur Squamous Epith Cells 0-2 (0-2) /HPF Urine Bacteria 4+ (None Seen) Hyaline Casts 0-2 (0-2) /LPF Urine Opiates Screen Not Detected (Not Detect) Ur Buprenorphine Scrn Not Detected (Not Detect) ng/mL Ur Oxycodone Screen Not Detected (Not Detect) ng/mL Urine Methadone Screen Not Detected (Not Detect) ng/mL Urine Fentanyl Screen Not Detected (Not Detect) Ur Barbiturates Screen Not Detected (Not Detect) Ur Phencyclidine Scrn Not Detected (Not Detect) Ur Amphetamines Screen Not Detected (Not Detect) U Benzodiazepines Scrn Not Detected (Not Detect) Urine Cocaine Screen Not Detected (Not Detect) U Marijuana (THC) Screen Not Detected (Not Detect) Influenza Type A (PCR) NEGATIVE (Negative) Influenza Type B (PCR) NEGATIVE (Negative) RSV RNA Qual (PCR) NEGATIVE (Negative) SARS-CoV-2 RNA (RT-PCR) NEGATIVE (Negative) Independent Interpretation I performed an independent interpretation of an: EKG and Plain X-Ray (normal ) Interpretation: Rate: 112 Rhythm: sinus tach [place]: normal Normal P waves. Normal [place]. Normal QRS complex. ST T wave : normal no [place] qTC: 458 prior studies: no acute ischemia The study has been interpreted contemporaneously by me. . Radiology Impression Discussion of test interpretation with radiology: I have reviewed the radiologist's reading. Independent Historian Clinical information obtained from an independent historian. History obtained from or confirmed by: EMS External Record Review External record reviewed: Inpatient record Prescription Management I considered prescription management with: Antibiotic Discharge Plan Discharge Clinical Impression: Atypical chest pain, Acute UTI Patient Disposition: Home, Self-Care Instructions: Chest Pain (ED), Urinary Tract Infection in Women (ED) Additional Instructions: return for worsening symptoms or any other concerns take antibiotic EKG, troponin, ddimer for clots negative Chest xray negative Prescriptions: New cefuroxime axetil 250 mg tablet 250 mg PO BID 7 Days Qty: 14 0RF No Action metformin 500 mg tablet 500 mg PO BID famotidine [Heartburn Relief (famotidine)] 10 mg tablet 10 mg PO BIDAC atorvastatin 10 mg tablet 10 mg PO BEDTIME pantoprazole 40 mg tablet,delayed release (DR/EC) 40 mg PO DAILY montelukast 10 mg tablet 10 mg PO BEDTIME albuterol sulfate [Ventolin HFA] 90 mcg/actuation HFA aerosol inhaler 2 puff inhalation Q6H PRN (Reason: Dyspnea) tiotropium bromide [Spiriva with HandiHaler] 18 mcg capsule, w/inhalation device 1 cap inhalation DAILY clozapine 100 mg tablet 100 mg PO DAILY buspirone 10 mg tablet 10 mg PO BID fluoxetine 40 mg capsule 80 mg PO DAILY prazosin 2 mg capsule 4 mg PO BID haloperidol 5 mg tablet 5 mg PO BID fluphenazine HCl 5 mg tablet 5 mg PO BID amlodipine 5 mg tablet 5 mg PO DAILY Qty: 30 2RF Interventions: [place]-Suicide Risk Severity Scale Last Done: 06/07/24 11:26 Print Language: Syriac
[2024-06-07 11:43] LABS: Appearance Urine Clear; Color Urine Yellow; Glucose Urine UA Negative (Negative); Leukocyte Esterase Urine Moderate (2+) (Negative); Nitrite Urine Positive (Negative); Specific Gravity - Urine <= 1.005 (1.005-1.025); UMIC TRIGGER UACC YES; Urine Blood Negative (Negative); Urine Ketones Negative (Negative); Urine Protein Negative (Neg-Trace)
[2024-06-07 11:46] LABS: Bacteria Urine 4+ (None Seen); Hyaline Casts Urine 0-2 /LPF (0-2); RBC Urine 0-2 /HPF (0-2); Squamous Epithelial Cell Urine 0-2 /HPF (0-2); UACC Culture Trigger YES; WBC Urine 21-50 /HPF (0-5)
--- NOTE | 2024-06-07 11:48 | PC.NURSE ---
Lucita comes in from her residential today reporting auditory hallucinations that are causing anxiety attacks which are subsequently causing chest pain. Lucita is well known to the ED for similar presentation. She is reporting SI with a plan to overdose as well. Patient has a hx of tylenol overdoses requiring medical stays in the hospital. Pt is calm and cooperative, aware of plan of care for medical clearance then CARE team gigi
[2024-06-07 11:53] LABS: Amphetamine Screen Urine Not Detected (Not Detect); Barbiturates, Urine Not Detected (Not Detect); Benzodiazepines Screen Urine Not Detected (Not Detect); Buprenorphine Scr Not Detected (Not Detect); Cannabinoid Screen Urine Not Detected (Not Detect); Cocaine Screen Urine Not Detected (Not Detect); Fentanyl, urine Not Detected (Not Detect); Methadone Screen, Urine Not Detected (Not Detect); Opiate Screen Urine Not Detected (Not Detect); Oxycodone Screen Urine Not Detected (Not Detect); Phencyclidine Screen Urine Not Detected (Not Detect)
[2024-06-07 11:57] LABS: MANUAL DIFF FLAG NO
[2024-06-07 11:59] LABS: Basophils Percent Auto 0.4 % (0-2); Eosinophils Absolute Auto 0.3 X10*3/uL (0.0-0.4); Hematocrit 41.8 % (37.0-47.0); Hemoglobin 14.1 g/dl (12.0-16.0); Imm Gran Abs Auto 0.05 X10*3/uL (0.00-0.03); Imm Gran Pct Auto 0.6 % (0.0-0.4); Lymphocytes Absolute Auto 1.2 X10*3/uL (1.2-4.9); Lymphocytes Percent Auto 14.9 % (20-40); Mean Corpuscular HGB Conc 33.7 g/dl (31.0-35.0); Mean Corpuscular Hemoglobin 30.7 pg (27.0-33.0); Mean Corpuscular Volume 91.1 fL (80.0-98.0); Mean Platelet Volume 9.2 fL (9.4-12.3); Monocytes Absolute Auto 0.6 X10*3/uL (0.1-1.2); Monocytes Percent Auto 7.1 % (2-11); Neutrophils Absolute Auto 6.2 x10*3/uL (2.0-8.3); Platelet Count 259 X10*3/uL (160-400); Red Blood Count 4.59 X10*6/uL (4.20-5.50); Red Cell Distribution Width 14.1 % (11.0-16.0); White Blood Count 8.3 X10*3/uL (4.8-10.8)
[2024-06-07 12:10] LABS: D Dimer High Sensitivity < 150 NG/ML
[2024-06-07 12:14] LABS: Alanine Aminotransferase 22 U/L (0-31); Albumin Level 4.2 g/dL (3.5-5.0); Alkaline Phosphatase 133 U/L (39-117); Anion Gap 15 (12-20); Aspartate Amino Transferase 17 U/L (5-31); Bilirubin Total 0.2 mg/dL (0.0-1.0); Blood Urea Nitrogen 8 mg/dL (9-16); Calcium 9.6 mg/dL (8.4-10.2); Carbon Dioxide 21 mmol/L (22-29); Chloride 108 mmol/L (96-108); Creatinine Clr Calc Pharmacy 98.1; Estimated Glomerular Filt Rate > 60; Glucose Random 210 mg/dL (60-115); Potassium 4.1 mmol/L (3.3-5.1); Sodium 140 mmol/L (135-145); Total Protein 6.9 g/dL (6.5-8.0)
[2024-06-07 12:26] LABS: Troponin-I High Sensitivity < 2.7 ng/L (<3.5-17.0)
[2024-06-07 12:26] LABS: Influenza A PCR NEGATIVE (Negative); Influenza B PCR NEGATIVE (Negative); Resp Syncy Virus RNA Qual PCR NEGATIVE (Negative); SARS COV2 PCR INHOUSE NEGATIVE (Negative)
[2024-06-07] MEDS: cefuroxime axetiL 250 MG TABLET PO (13:08)
[2024-06-07 13:10] VITALS: BP 142/92; PULSE 74; RESP 16; TEMP 37.1; O2SAT 97
== END 2024-06-07 13:45 | disposition home or self-care (01) ==
PROVIDERS: Emergency Provider Emergency Medicine; PCP Nurse Practitioner Family
DX: R07.89 Other chest pain (principal); N39.0 Urinary tract infection, site not specified; R05.9 Cough, unspecified; Z03.818 Encounter for observation for suspected exposure to other biological agents ruled out; E11.9 Type 2 diabetes mellitus without complications; E78.5 Hyperlipidemia, unspecified; K21.9 Gastro-esophageal reflux disease without esophagitis; F33.2 Major depressive disorder, recurrent severe without psychotic features; F43.10 Post-traumatic stress disorder, unspecified; F17.210 Nicotine dependence, cigarettes, uncomplicated; Z91.51 Personal history of suicidal behavior
CPT/HCPCS: 0241U; 36415; 71045; 80053; 80307; 81001; 84484; 85025; 85379; 87086; 87088; 87186; 93005; 99285

== ENCOUNTER 2024-06-11 23:03 | Emergency (ER) | payer MEDICARE, MEDICAID, SELFPAY ==
[2024-06-11 23:32] VITALS: BP 163/100; PULSE 62; RESP 16; TEMP 36.4; O2SAT 92
[2024-06-11 23:35] VITALS: BMI 40.9
[2024-06-11 23:49] LABS: Appearance Urine Clear; Color Urine Yellow; Glucose Urine UA Negative (Negative); Leukocyte Esterase Urine Trace (Negative); Nitrite Urine Negative (Negative); PH 5.5 (5.0-9.0); Specific Gravity - Urine <= 1.005 (1.005-1.025); UMIC TRIGGER UA YES; Urine Blood Moderate (2+) (Negative); Urine Ketones Negative (Negative); Urine Protein Negative (Neg-Trace)
[2024-06-11 23:53] LABS: UPreg QC Valid YES; Urine Pregnancy NEGATIVE (NEGATIVE)
[2024-06-11 23:55] LABS: Bacteria Urine None Seen (None Seen); Hyaline Casts Urine 0-2 /LPF (0-2); Squamous Epithelial Cell Urine 0-2 /HPF (0-2); WBC Urine 0-5 /HPF (0-5)
[2024-06-12 00:07] LABS: Amphetamine Screen Urine Not Detected (Not Detect); Barbiturates, Urine Not Detected (Not Detect); Benzodiazepines Screen Urine Not Detected (Not Detect); Buprenorphine Scr Not Detected (Not Detect); Cannabinoid Screen Urine Not Detected (Not Detect); Cocaine Screen Urine Not Detected (Not Detect); Fentanyl, urine Not Detected (Not Detect); Methadone Screen, Urine Not Detected (Not Detect); Opiate Screen Urine Not Detected (Not Detect); Oxycodone Screen Urine Not Detected (Not Detect); Phencyclidine Screen Urine Not Detected (Not Detect)
[2024-06-12 00:39] LABS: MANUAL DIFF FLAG NO
--- NOTE | 2024-06-12 00:41 | ED_ITS ---
HPI - General Adult General Chief complaint: Psychiatric Symptoms Stated complaint: hearing voices SI Time Seen by Provider: 06/11/24 23:31 Source: patient, RN notes reviewed and old records reviewed Mode of arrival: EMS Limitations: no limitations History of Present Illness ED Provider: Hilda KIRBY narrative: 48-year-old female with past medical history significant for PTSD, depression, GERD, type 2 diabetes borderline personality disorder presents for evaluation of auditory hallucinations. Patient reports that she has been ?hearing voices all day. ? She states that they are ?giving me commands. ? Patient states that they are telling her to ?cut myself and overdose. ? Patient does have a history of both self-harm with cutting and overdose She reports that her symptoms worsened around 5:00 p.m. today. She reports being compliant with her medications She is clear that she did not actually attempt to harm herself in any way today Related Data Home Medications ?Medication ?Instructions ?Recorded ?Confirmed albuterol sulfate 90 mcg/actuation 2 puff inhalation Q6H PRN Dyspnea 05/24/24 06/12/24 aerosol inhaler (Ventolin HFA) atorvastatin 10 mg tablet 10 mg PO BEDTIME 05/24/24 06/12/24 buspirone 10 mg tablet 10 mg PO BID 05/24/24 06/12/24 clozapine 100 mg tablet 100 mg PO DAILY 05/24/24 06/12/24 famotidine 10 mg tablet (Heartburn 10 mg PO BIDAC 05/24/24 06/12/24 Relief (famotidine)) metformin 500 mg tablet 500 mg PO BID 05/24/24 06/12/24 montelukast 10 mg tablet 10 mg PO BEDTIME 05/24/24 06/12/24 pantoprazole 40 mg tablet,delayed 40 mg PO DAILY 05/24/24 06/12/24 release tiotropium bromide 18 mcg capsule 1 cap inhalation DAILY 05/24/24 06/12/24 with inhalation device (Spiriva with HandiHaler) fluoxetine 40 mg capsule 80 mg PO DAILY 05/30/24 06/12/24 fluphenazine HCl 5 mg tablet 5 mg PO BID 05/30/24 06/12/24 haloperidol 5 mg tablet 5 mg PO BID 05/30/24 06/12/24 prazosin 2 mg capsule 4 mg PO BID 05/30/24 06/12/24 Previous Rx's ?Medication ?Instructions ?Recorded amlodipine 5 mg tablet 5 mg PO DAILY #30 tabs 06/06/24 Allergies Allergy/AdvReac Type Severity Reaction Status Date / Time azithromycin [AZITHROMYCIN] Allergy Severe Rash Verified 06/11/24 23:37 Fish Containing Products Allergy Severe Anaphylaxis Verified 06/11/24 23:37 codeine [Codeine] Allergy Intermediate Rash Verified 06/11/24 23:37 Penicillins Allergy Intermediate Rash Verified 06/11/24 23:37 prednisone [Prednisone] Allergy Intermediate Rash Verified 06/11/24 23:37 Sulfa (Sulfonamide Allergy Intermediate Rash Verified 06/11/24 23:37 Antibiotics) [Sulfa (Sulfonamides)] ziprasidone [From Geodon] Allergy Intermediate dysuria, Verified 06/11/24 23:37 rash lithium Allergy Rash Verified 06/11/24 23:37 Review of Systems 2 Constitutional: Constitutional: Denies body ache(s), Denies chills, Denies fever(s) and Denies headache(s) Eyes: Eyes: Denies blurry vision ENT: Denies headache(s) Cardiovascular: Cardiovascular: Denies chest pain and Denies dyspnea Respiratory: Respiratory: Denies cough and Denies dyspnea Gastrointestinal: Gastrointestinal: Denies vomiting Musculoskeletal: Musculoskeletal: Denies back pain Integumentary/Breasts: Skin/Breast: Denies rash Neurologic: Denies headache(s) Psychiatric: Psychiatric: Reports auditory hallucinations and Reports suicidal ideation PMFSH Past Medical History Medical History Asthma Suicidal ideation MDD (major depressive disorder), recurrent episode, severe Chest pain Acute anxiety COVID-19 Full body hives Major depression Dizziness Suicide attempt UTI (urinary tract infection) Acetaminophen overdose COVID History of attempted suicide History of non-suicidal self-harm Hypomagnesemia Suicide attempt Suicide attempt by acetaminophen overdose Acetaminophen overdose Depression Diabetes type 2, controlled Borderline personality disorder PTSD (post-traumatic stress disorder) Overdose GERD (gastroesophageal reflux disease) Mood disorder Hyperlipidemia Bronchitis Social History Social History Household Members: None Household Members Other:: halfway Housing: Other Housing Other:: Long Term Do you presently have visiting nurse or other home services: No Unable to assess alcohol history related to: Unknown Alcohol intake: former Comment: sitter in room Patient Tobacco Use Status: Former Tobacco user Tobacco use type: Cigarette Cigarette Packs Per Day: 1 Cigarettes Per Day: 20.0 Years Smoked: 22 Smoked in Last 30 Days: Yes e-Cigarette/Vaping Use: Never Used Second Hand Smoke Exposure: No Use of substances other than those prescribed or required for medical reasons: No Substance Use Type: Marijuana Advance Directives: No Advance Directives Information Provided: Yes Do you have a plan to hurt others: No Plan Patient : No service: No Current occupational status: unemployed and disabled Sexual orientation: Straight/Heterosexual Physical Exam ED Vital Signs: Vital Signs - 24 hr 06/11/24 23:32 06/12/24 02:53 Temperature 97.5 F Pulse Rate 62 124 H Respiratory Rate 16 18 Blood Pressure 163/100 H 173/104 H Pulse Oximetry 92 96 Oxygen Delivery Method Room Air Room Air BMI result Body Mass Index 40.9 Const General: healthy appearing, comfortable, no acute distress, alert and awake Nutritional Appearance: well nourished Orientation/consciousness: patient oriented x3 HENMT Head: Yes normocephalic and Yes atraumatic Eyes Eyelids: Yes eyelids normal Conjunctivae: conjunctivae normal Sclerae: sclerae normal Corneas: corneas normal Pupils: Equal, round and reactive pupils present EOM: EOMs intact bilaterally Neck Neck: Yes full ROM Resp Effort & Inspection: normal respiratory effort, able to speak in complete sentences and not labored Skin General skin exam: elasticity normal Neuro General: patient oriented x3 Cranial nerves: Yes Equal, round and reactive pupils present and Yes Bilaterally intact EOM present Cognition (Neuro): normal cognition Extrem Other: Moving all extremities well without any obvious deformities Psych Appearance: disheveled Mental Status: mental status grossly normal Speech and movement: Normal speech and movement present Affect: normal affect Attitude: cooperative Thought process: Normal thought process present Thought content: Suicidality present and Depressive thoughts present Insight: Limited insight present (Psych) Judgement: Limited judgement present (Psych) Course Course Course Narrative: Physician observation continued. VS elevated needs her medications. no acute events overnight pending CARE team 720am 06/12/24 Reevaluation(s) Reevaluation #1: observation care revealed that the patient does NOT meet psychiatric necessity for hospitalization. final disposition discussed with the patient. The patient completed observation care at 826am. cleared by CARE team. given AM medications. asymptomatic HTN LILIA 06/12/24 Medical Decision Making Medical Decision Making [facility] Narrative: 48-year-old female who was well until department presents for evaluation of auditory hallucinations. She has a long history of auditory hallucinations but reports command hallucinations and suicidal ideation related to this. Plan for medical clearance and care team evaluation Differential Diagnosis Differential Diagnoses: The differential diagnosis associated with the presentation includes Depression Auditory hallucinations Medication noncompliance Suicidal ideation Substance abuse Lab Data [facility] Lab Attestation statement: I reviewed the patient's lab results. 06/12/24 00:32 06/12/24 00:32 Labs: Lab Results 06/11/24 06/12/24 Range/Units 23:38 00:32 WBC 7.1 (4.8-10.8) X10*3/uL RBC 3.85 L (4.20-5.50) X10*6/uL Hgb 11.9 L (12.0-16.0) g/dl Hct 35.2 L (37.0-47.0) % MCV 91.4 (80.0-98.0) fL MCH 30.9 (27.0-33.0) pg MCHC 33.8 (31.0-35.0) g/dl RDW 13.6 (11.0-16.0) % Plt Count 251 (160-400) X10*3/uL MPV 9.2 L (9.4-12.3) fL Immature Gran % (Auto) 0.7 H (0.0-0.4) % Neut % (Auto) 64.3 (45-73) % Lymph % (Auto) 22.8 (20-40) % Smith % (Auto) 8.0 (2-11) % Eos % (Auto) 3.8 (0-4) % Baso % (Auto) 0.4 (0-2) % Lymph # (Auto) 1.6 (1.2-4.9) X10*3/uL Smith # (Auto) 0.6 (0.1-1.2) X10*3/uL Eos # (Auto) 0.3 (0.0-0.4) X10*3/uL Baso # (Auto) 0.0 (0.0-0.2) X10*3/uL Abs Immat Gran (auto) 0.05 H (0.00-0.03) X10*3/uL Absolute Neuts (auto) 4.6 (2.0-8.3) x10*3/uL Absolute Nucleated RBC 0.000 (0.0-0.012) X10*3/uL Nucleated RBC % (auto) 0.0 (0.0-0.2) /100WBC Sodium 141 (135-145) mmol/L Potassium 3.3 (3.3-5.1) mmol/L Chloride 107 (96-108) mmol/L Carbon Dioxide 24 (22-29) mmol/L Anion Gap 13 (12-20) BUN 8 L (9-16) mg/dL Creatinine 0.76 (0.5-1.4) mg/dL Estim Creat Clear Calc 115.1 Estimated GFR > 60 Random Glucose 161 H (60-115) mg/dL Calcium 8.7 D (8.4-10.2) mg/dL Total Bilirubin 0.1 (0.0-1.0) mg/dL AST 20 (5-31) U/L ALT 20 (0-31) U/L Alkaline Phosphatase 143 H (39-117) U/L Total Protein 6.5 (6.5-8.0) g/dL Albumin 4.0 (3.5-5.0) g/dL Urine Color Yellow Urine Appearance Clear Urine pH 5.5 (5.0-9.0) Ur Specific Dexter <= 1.005 (1.005-1.025) Urine Protein Negative (Neg-Trace) mg/dL Urine Glucose (UA) Negative (Negative) mg/dL Urine Ketones Negative (Negative) mg/dL Urine Blood Moderate (2+) H (Negative) Urine Nitrite Negative (Negative) Ur Leukocyte Esterase Trace H (Negative) Urine RBC 11-20 H (0-2) /HPF Urine WBC 0-5 (0-5) /HPF Ur Squamous Epith Cells 0-2 (0-2) /HPF Urine Bacteria None Seen (None Seen) Hyaline Casts 0-2 (0-2) /LPF Urine Test NEGATIVE (NEGATIVE) Salicylates < 5.0 L (15-30) mg/dL Urine Opiates Screen Not Detected (Not Detect) Ur Buprenorphine Scrn Not Detected (Not Detect) ng/mL Ur Oxycodone Screen Not Detected (Not Detect) ng/mL Urine Methadone Screen Not Detected (Not Detect) ng/mL Urine Fentanyl Screen Not Detected (Not Detect) Acetaminophen < 3 (<30) mcg/mL Ur Barbiturates Screen Not Detected (Not Detect) Ur Phencyclidine Scrn Not Detected (Not Detect) Ur Amphetamines Screen Not Detected (Not Detect) U Benzodiazepines Scrn Not Detected (Not Detect) Urine Cocaine Screen Not Detected (Not Detect) U Marijuana (THC) Screen Not Detected (Not Detect) Discharge Plan Discharge Clinical Impression: Depression with suicidal ideation, Auditory hallucination Patient Disposition: Home, Self-Care Instructions: Help Prevent Suicide (ED), Hallucinations (ED) Additional Instructions: return for any worsening symptoms or concerns follow up with our outpatient mental health providers Prescriptions: No Action metformin 500 mg tablet 500 mg PO BID famotidine [Heartburn Relief (famotidine)] 10 mg tablet 10 mg PO BIDAC atorvastatin 10 mg tablet 10 mg PO BEDTIME pantoprazole 40 mg tablet,delayed release (DR/EC) 40 mg PO DAILY montelukast 10 mg tablet 10 mg PO BEDTIME albuterol sulfate [Ventolin HFA] 90 mcg/actuation HFA aerosol inhaler 2 puff inhalation Q6H PRN (Reason: Dyspnea) tiotropium bromide [Spiriva with HandiHaler] 18 mcg capsule, w/inhalation device 1 cap inhalation DAILY clozapine 100 mg tablet 100 mg PO DAILY buspirone 10 mg tablet 10 mg PO BID fluoxetine 40 mg capsule 80 mg PO DAILY prazosin 2 mg capsule 4 mg PO BID haloperidol 5 mg tablet 5 mg PO BID fluphenazine HCl 5 mg tablet 5 mg PO BID amlodipine 5 mg tablet 5 mg PO DAILY Qty: 30 2RF Interventions: [place]-Suicide Risk Severity Scale Last Done: 06/12/24 06:36 Print Language: [place]
[2024-06-12 00:42] LABS: Basophils Percent Auto 0.4 % (0-2); Eosinophils Absolute Auto 0.3 X10*3/uL (0.0-0.4); Eosinophils Percent Auto 3.8 % (0-4); Hematocrit 35.2 % (37.0-47.0); Hemoglobin 11.9 g/dl (12.0-16.0); Imm Gran Abs Auto 0.05 X10*3/uL (0.00-0.03); Imm Gran Pct Auto 0.7 % (0.0-0.4); Lymphocytes Absolute Auto 1.6 X10*3/uL (1.2-4.9); Lymphocytes Percent Auto 22.8 % (20-40); Mean Corpuscular HGB Conc 33.8 g/dl (31.0-35.0); Mean Corpuscular Hemoglobin 30.9 pg (27.0-33.0); Mean Corpuscular Volume 91.4 fL (80.0-98.0); Mean Platelet Volume 9.2 fL (9.4-12.3); Monocytes Absolute Auto 0.6 X10*3/uL (0.1-1.2); Neutrophils Absolute Auto 4.6 x10*3/uL (2.0-8.3); Neutrophils Percent Auto 64.3 % (45-73); Platelet Count 251 X10*3/uL (160-400); Red Blood Count 3.85 X10*6/uL (4.20-5.50); Red Cell Distribution Width 13.6 % (11.0-16.0); White Blood Count 7.1 X10*3/uL (4.8-10.8)
[2024-06-12 00:55] LABS: Acetaminophen LAB < 3 mcg/mL (<30); Alanine Aminotransferase 20 U/L (0-31); Alkaline Phosphatase 143 U/L (39-117); Anion Gap 13 (12-20); Aspartate Amino Transferase 20 U/L (5-31); Bilirubin Total 0.1 mg/dL (0.0-1.0); Blood Urea Nitrogen 8 mg/dL (9-16); Calcium 8.7 mg/dL (8.4-10.2); Carbon Dioxide 24 mmol/L (22-29); Chloride 107 mmol/L (96-108); Creatinine Clr Calc Pharmacy 115.1; Estimated Glomerular Filt Rate > 60; Glucose Random 161 mg/dL (60-115); Potassium 3.3 mmol/L (3.3-5.1); Salicylate < 5.0 mg/dL (15-30); Sodium 141 mmol/L (135-145); Total Protein 6.5 g/dL (6.5-8.0)
[2024-06-12 02:53] VITALS: BP 173/104; PULSE 124; RESP 18; O2SAT 96
--- NOTE | 2024-06-12 06:36 | PC.NURSE ---
Patient slept intermittently, no distress observed/reported, no behavior and safety concerns, med rec completed/pending provider's approval, care consult ordered for CAH/pending Evaluation, VSS, will continue to monitor
--- NOTE | 2024-06-12 07:43 | PC.NURSE ---
Assumed care of patient at 0645, patient appears to be sleeping, respirations even and unlabored, no apparent distress noted. Continue plan of care for discharge this am
[2024-06-12 08:30] VITALS: BP 156/94; PULSE 119; RESP 16; TEMP 36.3; O2SAT 96
[2024-06-12 08:48] VITALS: PULSE 112; RESP 18; O2SAT 99
[2024-06-12] MEDS: Albuterol/Iprat 2.5/0.5MG 3 ML AMPUL.NEB INHALE (08:55)
--- NOTE | 2024-06-12 08:55 | MHC.CARE ---
Pt does not meet IPLOC and [facility]
[2024-06-12 09:47] VITALS: BP 136/88; PULSE 102; RESP 20; TEMP 36.7; O2SAT 93
== END 2024-06-12 09:49 | disposition home or self-care (01) ==
PROVIDERS: Physician Assistant; Emergency Provider Emergency Medicine
DX: F32.A Depression, unspecified (principal); R45.851 Suicidal ideations; R44.0 Auditory hallucinations; F43.10 Post-traumatic stress disorder, unspecified; F60.3 Borderline personality disorder; E11.9 Type 2 diabetes mellitus without complications; Z79.899 Other long term (current) drug therapy; Z79.84 Long term (current) use of oral hypoglycemic drugs
CPT/HCPCS: 36415; 80053; 80143; 80179; 80307; 81001; 81025; 85025; 94640; 99285; S9485

== ENCOUNTER 2024-06-12 22:01 | Emergency (ER) | payer MEDICARE, MEDICAID, SELFPAY ==
--- NOTE | ~2024-06-12 | CT_ITS ---
EXAMINATION CT HEAD WITHOUT CONTRAST CLINICAL INFORMATION: Trauma COMPARISON: CT head December 07, 2023 TECHNIQUE: CT of the head was performed without intravenous contrast. Reformatted axial, coronal, and sagittal images were reviewed. This CT examination was performed using dose optimization techniques as appropriate, variously including the following: *Automated exposure control *Adjustment of mA and/or kV according to patient size (this includes techniques or standardized protocols for targeted exams where dose is matched to indication/reason for exam; i.e. extremities or head) *Use of iterative reconstruction technique DLP: 610 mGy-cm FINDINGS: No intracranial hemorrhage, extra-axial fluid collection, or midline shift is identified. Noland-white matter differentiation is preserved. The ventricles are within normal limits. Basal cisterns are within normal limits. Paranasal sinuses are clear. Mastoid air cells and middle ear cavities are clear. No acute calvarial fractures. CT/CT head/brain wo IV con IMPRESSION: No acute intracranial abnormality. Electronically signed by: Carlos Rothman DO 06/13/2024 01:18 AM EDT
--- NOTE | ~2024-06-12 | XR_ITS ---
EXAMINATION: XR THORACIC SPINE CLINICAL INFORMATION: Fall, pain COMPARISON: None available. TECHNIQUE: 3 views of the thoracic spine were obtained. FINDINGS: There is no fracture or bone destruction seen and the vertebral alignment is normal. There is no disc space narrowing. There is no abnormality of the paraspinal soft tissues. XR/XR thoracic spine 2V IMPRESSION: Unremarkable examination. Electronically signed by: Carlos Rothman DO 06/13/2024 12:45 AM EDT
--- NOTE | ~2024-06-12 | XR_ITS ---
EXAMINATION: XR LUMBOSACRAL SPINE CLINICAL INFORMATION: Fall, pain COMPARISON: None available. TECHNIQUE: Three views of the lumbosacral spine. FINDINGS: The vertebral bodies and posterior elements are normal. 6 nonrib-bearing lumbar vertebral bodies. Mild degenerative changes throughout the lumbar spine. Alignment preserved. The paraspinal soft tissues are normal. XR/XR lumbar spine 2-3V IMPRESSION: No acute fracture or spondylolisthesis. Electronically signed by: Carlos Rothman DO 06/13/2024 12:51 AM EDT
[2024-06-12 22:18] VITALS: BP 170/110; PULSE 98; O2SAT 96
[2024-06-12 22:19] VITALS: BP 193/94; PULSE 106; RESP 18; TEMP 36.3; O2SAT 97; BMI 42.2
[2024-06-12] MEDS: Acetaminophen 325 MG TABLET 975 MG PO (23:38)
--- NOTE | 2024-06-13 01:16 | MHC.EDTECH ---
pt just walked to bathroom with no assistance and steady gait, pt appears in no distress at this time
--- NOTE | 2024-06-13 01:26 | ED_ITS ---
HPI - General Adult General Chief complaint: Fall Stated complaint: fall, back pain, headache. from longterm Time Seen by Provider: 06/12/24 22:29 Source: patient, RN notes reviewed and old records reviewed Mode of arrival: EMS Limitations: no limitations History of Present Illness ED Provider: Hilda HPI narrative: 48-year-old male presents for evaluation with a stress fall. The patient reports that she slipped in the shower and fell backwards pain She has pain to the middle of her back and the back of her head She denies any neck pain. She did not lose consciousness She is not on blood thinners She would not take any medication for her symptoms She denies any blurry vision, dizziness, nausea vomiting No other complaints or concerns at this time Related Data Home Medications ?Medication ?Instructions ?Recorded ?Confirmed albuterol sulfate 90 mcg/actuation 2 puff inhalation Q6H PRN Wheezing 06/24/24 06/24/24 aerosol inhaler amlodipine 5 mg tablet 5 mg PO DAILY 06/24/24 06/24/24 atorvastatin 10 mg tablet 10 mg PO DAILY 06/24/24 06/24/24 benztropine 1 mg tablet 1 mg PO BID 06/24/24 06/24/24 buspirone 10 mg tablet 10 mg PO BID 06/24/24 06/24/24 clozapine 100 mg tablet 100 mg PO DAILY 06/24/24 06/24/24 doxycycline hyclate 100 mg tablet 100 mg PO BID 06/24/24 06/24/24 fluoxetine 40 mg capsule 40 mg PO DAILY 06/24/24 06/24/24 fluphenazine HCl 5 mg tablet 5 mg PO BID 06/24/24 06/24/24 fluticasone fur. 200 mcg-umeclid 1 ea inhalation DAILY 06/24/24 06/24/24 62.5 mcg-vilant 25 mcg inhalat.powder (Trelegy Ellipta) haloperidol 5 mg tablet 5 mg PO BID 06/24/24 06/24/24 lorazepam 0.5 mg tablet 0.5 mg PO Q4H PRN Anxiety 06/24/24 06/24/24 metformin 500 mg tablet 500 mg PO BID 06/24/24 06/24/24 mirtazapine 7.5 mg tablet 7.5 mg PO BEDTIME 06/24/24 06/24/24 montelukast 10 mg tablet 10 mg PO DAILY 06/24/24 06/24/24 naproxen 500 mg tablet 500 mg PO BID 06/24/24 06/24/24 pantoprazole 20 mg tablet,delayed 20 mg PO BID 06/24/24 06/24/24 release prazosin 2 mg capsule 2 mg PO BID 06/24/24 06/24/24 zaleplon 5 mg capsule 5 mg PO BEDTIME 06/24/24 06/24/24 Allergies Allergy/AdvReac Type Severity Reaction Status Date / Time azithromycin [AZITHROMYCIN] Allergy Severe Rash Verified 06/23/24 21:50 Fish Containing Products Allergy Severe Anaphylaxis Verified 06/23/24 21:50 codeine [Codeine] Allergy Intermediate Rash Verified 06/23/24 21:50 Penicillins Allergy Intermediate Rash Verified 06/23/24 21:50 prednisone [Prednisone] Allergy Intermediate Rash Verified 06/23/24 21:50 Sulfa (Sulfonamide Allergy Intermediate Rash Verified 06/23/24 21:50 Antibiotics) [Sulfa (Sulfonamides)] ziprasidone [From Geodon] Allergy Intermediate dysuria, Verified 06/23/24 21:50 rash lithium Allergy Rash Verified 06/23/24 21:50 Review of Systems Constitutional: Constitutional: Denies body ache(s), Denies chills, Denies fever(s), Denies frequent falls and Reports headache(s) Eyes: Eyes: Denies blurry vision and Denies exophthalmos ENT: Reports headache(s) Cardiovascular: Cardiovascular: Denies chest pain and Denies dyspnea Respiratory: Respiratory: Denies cough and Denies dyspnea Gastrointestinal: Gastrointestinal: Denies abdominal pain, Denies nausea and Denies vomiting Musculoskeletal: Musculoskeletal: Reports back pain, Denies numbness and Denies tingling Integumentary/Breasts: Skin/Breast: Denies rash Neurologic: Denies frequent falls, Reports headache(s), Denies numbness, Denies tingling and Denies paresthesias PMFSH Past Medical History Medical History Asthma Suicidal ideation MDD (major depressive disorder), recurrent episode, severe Chest pain Acute anxiety COVID-19 Full body hives Major depression Dizziness Suicide attempt UTI (urinary tract infection) Acetaminophen overdose COVID History of attempted suicide History of non-suicidal self-harm Hypomagnesemia Suicide attempt Suicide attempt by acetaminophen overdose Acetaminophen overdose Depression Diabetes type 2, controlled Borderline personality disorder PTSD (post-traumatic stress disorder) Overdose GERD (gastroesophageal reflux disease) Mood disorder Hyperlipidemia Bronchitis Social History Social History Household Members: None Household Members Other:: longterm Housing: Other Housing Other:: [facility] Do you presently have visiting nurse or other home services: No Unable to assess alcohol history related to: Unknown Alcohol intake: never Comment: sitter in room Patient Tobacco Use Status: Former Tobacco user Tobacco use type: Cigarette Cigarette Packs Per Day: 1 Cigarettes Per Day: 20.0 Years Smoked: 22 Smoked in Last 30 Days: No e-Cigarette/Vaping Use: Never Used Second Hand Smoke Exposure: No Use of substances other than those prescribed or required for medical reasons: No Substance Use Type: Marijuana Advance Directives: No Advance Directives Information Provided: No Patient : No service: No Current occupational status: unemployed and disabled Sexual orientation: Straight/Heterosexual Physical Exam ED Vital Signs: Vital Signs - 24 hr 06/12/24 22:19 Temperature 97.4 F Pulse Rate 106 H Respiratory Rate 18 Blood Pressure 193/94 H Pulse Oximetry 97 Oxygen Delivery Method Room Air BMI result Body Mass Index 42.2 Const General: healthy appearing, comfortable, no acute distress, alert and awake Nutritional Appearance: well nourished Orientation/consciousness: patient oriented x3 HENMT Head: Yes normocephalic and Yes atraumatic Eyes Eyelids: Yes eyelids normal Conjunctivae: conjunctivae normal Sclerae: sclerae normal Corneas: corneas normal Pupils: Equal, round and reactive pupils present EOM: EOMs intact bilaterally Neck Neck: Yes full ROM Resp Effort & Inspection: normal respiratory effort, able to speak in complete sentences and not labored GI Inspection: No distended Palpation (GI): Soft to palpation, not firm, nontender, no guarding and not rigid Back/Spine/Pelvis Other: Patient has mild vague tenderness to the lower thoracic spine and upper lumbar spine. There were no step-offs or deformities. No ecchymosis. She has good range of motion flexion-extension to the lower extremities bilaterally Skin General skin exam: elasticity normal Neuro General: patient oriented x3 Cranial nerves: Yes CN's II-XII intact bilaterally, Yes Equal, round and reactive pupils present and Yes Bilaterally intact EOM present Cognition (Neuro): normal cognition Motor exam (neuro): 5/5 motor strength present throughout Extrem Other: Moving all extremities well without any obvious deformities Medications Administered Discontinued Medications Generic Name Dose Route Start Last Admin Trade Name Elmer PRN Reason Stop Dose Admin Acetaminophen 975 mg 06/12/24 22:40 06/12/24 23:38 Acetaminophen 325 Mg Tablet PO 06/12/24 22:41 975 mg ONCE ONE Administration Medical Decision Making Medical Decision Making MDM Narrative: 48-year-old female who is well known to this department presents for evaluation after a slip and fall in the shower. She has no objective findings of injury. She is quite well appearing. She is alert and oriented, nonfocal neuro exam. CT scan of the brain shows no acute traumatic injuries, take and lumbar spine shows no acute traumatic injuries. There is no C-spine tenderness on exam and the patient's C-spine was cleared with nexus criteria. Differential Diagnosis Differential Diagnoses: The differential diagnosis associated with the presentation includes Contusion Compression fracture Burst fracture Radiculopathy Concussion Independent Interpretation I performed an independent interpretation of an: Plain X-Ray (Thoracic and lumbar spine without obvious compression deformities. Mild stool burden visualized) and CT Scan Interpretation: Agree with Radiology interpretation, no acute intracranial pathology Radiology Impression Discussion of test interpretation with radiology: I have reviewed the radiologist's reading. Radiologist Impression: CT/CT head/brain wo IV con IMPRESSION: 1. No evidence of acute intracranial hemorrhage or edematous territorial infarction. 2. Moderate underlying microangiopathy and generalized cerebral volume loss. FINDINGS: The vertebral bodies and posterior elements are normal. 6 nonrib-bearing lumbar vertebral bodies. Mild degenerative changes throughout the lumbar spine. Alignment preserved. The paraspinal soft tissues are normal. XR/XR lumbar spine 2-3V IMPRESSION: No acute fracture or spondylolisthesis. FINDINGS: There is no fracture or bone destruction seen and the vertebral alignment is normal. There is no disc space narrowing. There is no abnormality of the paraspinal soft tissues. XR/XR thoracic spine 2V IMPRESSION: Unremarkable examination. Discharge Plan Discharge Clinical Impression: Back pain, Minor closed head injury Patient Disposition: Home, Self-Care Instructions: Back Pain (ED) Additional Instructions: Your x-rays did not show any traumatic injury or fractures sign. Your CT scan did not show any traumatic injuries either. You may use ibuprofen 600 mg every 6 hours as needed for pain Follow-up with your primary doctor Prescriptions: No Action fluoxetine 40 mg capsule 40 mg PO DAILY metformin 500 mg tablet 500 mg PO BID haloperidol 5 mg tablet 5 mg PO BID atorvastatin 10 mg tablet 10 mg PO DAILY clozapine 100 mg tablet 100 mg PO DAILY amlodipine 5 mg tablet 5 mg PO DAILY pantoprazole 20 mg tablet,delayed release (DR/EC) 20 mg PO BID lorazepam 0.5 mg tablet 0.5 mg PO Q4H PRN (Reason: Anxiety) buspirone 10 mg tablet 10 mg PO BID benztropine 1 mg tablet 1 mg PO BID montelukast 10 mg tablet 10 mg PO DAILY zaleplon 5 mg capsule 5 mg PO BEDTIME albuterol sulfate 90 mcg/actuation HFA aerosol inhaler 2 puff inhalation Q6H PRN (Reason: Wheezing) doxycycline hyclate 100 mg tablet 100 mg PO BID fluphenazine HCl 5 mg tablet 5 mg PO BID prazosin 2 mg capsule 2 mg PO BID naproxen 500 mg tablet 500 mg PO BID mirtazapine 7.5 mg tablet 7.5 mg PO BEDTIME Trelegy Ellipta 200-62.5-25 mcg blister with device 1 ea inhalation DAILY Interventions: ED Discharge Assessment Last Done: 06/13/24 01:49 Discharge Date/Time: 06/13/24 01:51 Print Language: Divehi
[2024-06-13 01:49] VITALS: BP 193/94; PULSE 106; RESP 18; TEMP 36.3; O2SAT 97
== END 2024-06-13 01:51 | disposition home or self-care (01) ==
PROVIDERS: Emergency Provider Student in an Organized Health Care Education/Training Program; PCP Nurse Practitioner Family
DX: S09.90XA Unspecified injury of head, initial encounter (principal); M54.50 Low back pain, unspecified; M54.6 Pain in thoracic spine; M54.2 Cervicalgia; R51.9 Headache, unspecified; W18.2XXA Fall in (into) shower or empty bathtub, initial encounter; Y93.E1 Activity, personal bathing and showering; Y92.002 Bathroom of unspecified non-institutional (private) residence as the place of occurrence of the external cause; Y99.8 Other external cause status
CPT/HCPCS: 70450; 72070; 72100; 99283; 99284

== ENCOUNTER 2024-06-15 18:05 | Emergency (ER) | payer MEDICARE, MEDICAID, SELFPAY ==
[2024-06-15 18:10] VITALS: BP 151/104; PULSE 119; RESP 18; TEMP 36.6; O2SAT 95; BMI 42.2
--- NOTE | 2024-06-15 18:10 | ED_ITS ---
HPI - Skin/Abscess/Foreign Bdy General Stated complaint: TROUBLE WALKING, RASH IN BETWEEN LEGS Related Data Home Medications ?Medication ?Instructions ?Recorded ?Confirmed albuterol sulfate 90 mcg/actuation 2 puff inhalation Q6H PRN Dyspnea 05/24/24 06/12/24 aerosol inhaler (Ventolin HFA) atorvastatin 10 mg tablet 10 mg PO BEDTIME 05/24/24 06/12/24 buspirone 10 mg tablet 10 mg PO BID 05/24/24 06/12/24 clozapine 100 mg tablet 100 mg PO DAILY 05/24/24 06/12/24 famotidine 10 mg tablet (Heartburn 10 mg PO BIDAC 05/24/24 06/12/24 Relief (famotidine)) metformin 500 mg tablet 500 mg PO BID 05/24/24 06/12/24 montelukast 10 mg tablet 10 mg PO BEDTIME 05/24/24 06/12/24 pantoprazole 40 mg tablet,delayed 40 mg PO DAILY 05/24/24 06/12/24 release tiotropium bromide 18 mcg capsule 1 cap inhalation DAILY 05/24/24 06/12/24 with inhalation device (Spiriva with HandiHaler) fluoxetine 40 mg capsule 80 mg PO DAILY 05/30/24 06/12/24 fluphenazine HCl 5 mg tablet 5 mg PO BID 05/30/24 06/12/24 haloperidol 5 mg tablet 5 mg PO BID 05/30/24 06/12/24 prazosin 2 mg capsule 4 mg PO BID 05/30/24 06/12/24 Previous Rx's ?Medication ?Instructions ?Recorded amlodipine 5 mg tablet 5 mg PO DAILY #30 tabs 06/06/24 ibuprofen 600 mg tablet 600 mg PO Q6H PRN pain #20 tabs 06/13/24 Allergies Allergy/AdvReac Type Severity Reaction Status Date / Time azithromycin [AZITHROMYCIN] Allergy Severe Rash Verified 06/15/24 18:11 Fish Containing Products Allergy Severe Anaphylaxis Verified 06/15/24 18:11 codeine [Codeine] Allergy Intermediate Rash Verified 06/15/24 18:11 Penicillins Allergy Intermediate Rash Verified 06/15/24 18:11 prednisone [Prednisone] Allergy Intermediate Rash Verified 06/15/24 18:11 Sulfa (Sulfonamide Allergy Intermediate Rash Verified 06/15/24 18:11 Antibiotics) [Sulfa (Sulfonamides)] ziprasidone [From Geodon] Allergy Intermediate dysuria, Verified 06/15/24 18:11 rash lithium Allergy Rash Verified 06/15/24 18:11 [facility] Past Medical History Medical History Asthma Suicidal ideation MDD (major depressive disorder), recurrent episode, severe Chest pain Acute anxiety COVID-19 Full body hives Major depression Dizziness Suicide attempt UTI (urinary tract infection) Acetaminophen overdose COVID History of attempted suicide History of non-suicidal self-harm Hypomagnesemia Suicide attempt Suicide attempt by acetaminophen overdose Acetaminophen overdose Depression Diabetes type 2, controlled Borderline personality disorder PTSD (post-traumatic stress disorder) Overdose GERD (gastroesophageal reflux disease) Mood disorder Hyperlipidemia Bronchitis Social History Social History Household Members: None Household Members Other:: [facility] Housing: Other Housing Other:: Half-Way Do you presently have visiting nurse or other home services: No Unable to assess alcohol history related to: Unknown Alcohol intake: former Comment: sitter in room Patient Tobacco Use Status: Former Tobacco user Tobacco use type: Cigarette Cigarette Packs Per Day: 1 Cigarettes Per Day: 20.0 Years Smoked: 22 e-Cigarette/Vaping Use: Never Used Second Hand Smoke Exposure: No Substance Use Type: Marijuana service: No Current occupational status: unemployed and disabled Sexual orientation: Straight/Heterosexual Course Course Course Narrative: This is a Rapid Medical Exam performed in triage by Jaimie Carmona PA-C. Full HPI, ROS and PE to be performed by primary ED provider. 48 yo F presenting to the ED c/o rash to inner thighs & under stomach x3 days, causing painful ambulation. Has been using Nystatin cream w/o relief. Feels like rash is worsening/spreading PE: area not visualized in triage Plan: Full eval by ED provider Discharge Plan Discharge Prescriptions: No Action metformin 500 mg tablet 500 mg PO BID famotidine [Heartburn Relief (famotidine)] 10 mg tablet 10 mg PO BIDAC atorvastatin 10 mg tablet 10 mg PO BEDTIME pantoprazole 40 mg tablet,delayed release (DR/EC) 40 mg PO DAILY montelukast 10 mg tablet 10 mg PO BEDTIME albuterol sulfate [Ventolin HFA] 90 mcg/actuation HFA aerosol inhaler 2 puff inhalation Q6H PRN (Reason: Dyspnea) tiotropium bromide [Spiriva with HandiHaler] 18 mcg capsule, w/inhalation device 1 cap inhalation DAILY clozapine 100 mg tablet 100 mg PO DAILY buspirone 10 mg tablet 10 mg PO BID ibuprofen 600 mg tablet 600 mg PO Q6H PRN (Reason: pain) Qty: 20 0RF fluoxetine 40 mg capsule 80 mg PO DAILY prazosin 2 mg capsule 4 mg PO BID haloperidol 5 mg tablet 5 mg PO BID fluphenazine HCl 5 mg tablet 5 mg PO BID amlodipine 5 mg tablet 5 mg PO DAILY Qty: 30 2RF Print Language: Icelandic
[2024-06-15 21:49] VITALS: BP 150/96; PULSE 96; RESP 20; TEMP 36.6; O2SAT 97
--- NOTE | 2024-06-15 22:58 | ED_ITS ---
HPI - Skin/Abscess/Foreign Bdy General Chief complaint: Skin/Abscess/Foreign Body Stated complaint: TROUBLE WALKING, RASH IN BETWEEN LEGS Time Seen by Provider: 06/15/24 22:28 Source: patient Mode of arrival: ambulatory Limitations: no limitations History of Present Illness ED Provider: gem KIRBY narrative: Patient obese with intertrigo in the groin area in between the lower abdominal fold applying antifungal cream not getting better Related Data Home Medications ?Medication ?Instructions ?Recorded ?Confirmed albuterol sulfate 90 mcg/actuation 2 puff inhalation Q6H PRN Dyspnea 05/24/24 06/12/24 aerosol inhaler (Ventolin HFA) atorvastatin 10 mg tablet 10 mg PO BEDTIME 05/24/24 06/12/24 buspirone 10 mg tablet 10 mg PO BID 05/24/24 06/12/24 clozapine 100 mg tablet 100 mg PO DAILY 05/24/24 06/12/24 famotidine 10 mg tablet (Heartburn 10 mg PO BIDAC 05/24/24 06/12/24 Relief (famotidine)) metformin 500 mg tablet 500 mg PO BID 05/24/24 06/12/24 montelukast 10 mg tablet 10 mg PO BEDTIME 05/24/24 06/12/24 pantoprazole 40 mg tablet,delayed 40 mg PO DAILY 05/24/24 06/12/24 release tiotropium bromide 18 mcg capsule 1 cap inhalation DAILY 05/24/24 06/12/24 with inhalation device (Spiriva with HandiHaler) fluoxetine 40 mg capsule 80 mg PO DAILY 05/30/24 06/12/24 fluphenazine HCl 5 mg tablet 5 mg PO BID 05/30/24 06/12/24 haloperidol 5 mg tablet 5 mg PO BID 05/30/24 06/12/24 prazosin 2 mg capsule 4 mg PO BID 05/30/24 06/12/24 Previous Rx's ?Medication ?Instructions ?Recorded amlodipine 5 mg tablet 5 mg PO DAILY #30 tabs 06/06/24 ibuprofen 600 mg tablet 600 mg PO Q6H PRN pain #20 tabs 06/13/24 doxycycline hyclate 100 mg tablet 100 mg PO BID #20 tabs 06/15/24 nystatin 100,000 unit/gram topical 1 appl topical QID #30 grams 06/15/24 powder Allergies Allergy/AdvReac Type Severity Reaction Status Date / Time azithromycin [AZITHROMYCIN] Allergy Severe Rash Verified 06/15/24 18:11 Fish Containing Products Allergy Severe Anaphylaxis Verified 06/15/24 18:11 codeine [Codeine] Allergy Intermediate Rash Verified 06/15/24 18:11 Penicillins Allergy Intermediate Rash Verified 06/15/24 18:11 prednisone [Prednisone] Allergy Intermediate Rash Verified 06/15/24 18:11 Sulfa (Sulfonamide Allergy Intermediate Rash Verified 06/15/24 18:11 Antibiotics) [Sulfa (Sulfonamides)] ziprasidone [From Geodon] Allergy Intermediate dysuria, Verified 06/15/24 18:11 rash lithium Allergy Rash Verified 06/15/24 18:11 Review of Systems Review of Systems: Yes all other systems are reviewed and are negative PMFSH Past Medical History Medical History Asthma Suicidal ideation MDD (major depressive disorder), recurrent episode, severe Chest pain Acute anxiety COVID-19 Full body hives Major depression Dizziness Suicide attempt UTI (urinary tract infection) Acetaminophen overdose COVID History of attempted suicide History of non-suicidal self-harm Hypomagnesemia Suicide attempt Suicide attempt by acetaminophen overdose Acetaminophen overdose Depression Diabetes type 2, controlled Borderline personality disorder PTSD (post-traumatic stress disorder) Overdose GERD (gastroesophageal reflux disease) Mood disorder Hyperlipidemia Bronchitis Social History Social History Household Members: None Household Members Other:: assisted Housing: Other Housing Other:: Longterm Do you presently have visiting nurse or other home services: No Unable to assess alcohol history related to: Unknown Alcohol intake: former Comment: sitter in room Patient Tobacco Use Status: Former Tobacco user Tobacco use type: Cigarette Cigarette Packs Per Day: 1 Cigarettes Per Day: 20.0 Years Smoked: 22 e-Cigarette/Vaping Use: Never Used Second Hand Smoke Exposure: No Substance Use Type: Marijuana Advance Directives: No Advance Directives Information Provided: No service: No Current occupational status: unemployed and disabled Sexual orientation: Straight/Heterosexual Physical Exam Vital Signs: Vital Signs: Last Vital Signs Temp 98 F 06/15/24 21:49 Pulse 96 06/15/24 21:49 Resp 20 06/15/24 21:49 BP 150/96 H 06/15/24 21:49 Pulse Ox 97 06/15/24 21:49 O2 Del Method Room Air 06/15/24 21:49 BMI result Body Mass Index 42.2 Appearance: Alert. Oriented X3. No acute distress. ENT: Pharynx normal. Oral Mucosa moist Neck: Normal inspection. Neck supple. CVS: Normal heart rate and rhythm. Pulses normal. Respiratory: No respiratory distress. Equal air entry bilateral, no wheezing/r ales/rhonchi Abdomen: Soft and nontender. Bowel sounds are present, no mass palpable, no CVA tenderness Skin: Skin warm and dry. Intertrigo in groin area and lower abdominal folds with slight erythema small folliculitis in the right groin area no significant abscess palpable Extremities: No lower extremity edema. No calf tenderness Neuro: Oriented X 3. Medications Administered Discontinued Medications Generic Name Dose Route Start Last Admin Trade Name Freq PRN Reason Stop Dose Admin Nystatin 1 appl 06/15/24 22:35 06/15/24 23:05 Nystatin Powder 15 Gm Bottle TOPICAL 06/15/24 22:36 1 appl ONCE ONE Administration Protocol Medical Decision Making Medical Decision Making MDM Narrative: Patient was prescribed nystatin powder 2 days ago which she is not aware advised to use a powder instead of cream 4 times a day and apply the dry cloth provided to the patient Discharge Plan Discharge Clinical Impression: Candidal intertrigo, Folliculitis Patient Disposition: Home, Self-Care Instructions: Folliculitis (ED), Skin Yeast Infection (ED) Additional Instructions: Continue to use nystatin powder 4 times a day Keep the area dry use the cloth provided to keep the area dry Take antibiotic for the boil Prescriptions: New doxycycline hyclate 100 mg tablet 100 mg PO BID Qty: 20 0RF nystatin 100,000 unit/gram powder 1 appl topical QID Qty: 30 0RF No Action metformin 500 mg tablet 500 mg PO BID famotidine [Heartburn Relief (famotidine)] 10 mg tablet 10 mg PO BIDAC atorvastatin 10 mg tablet 10 mg PO BEDTIME pantoprazole 40 mg tablet,delayed release (DR/EC) 40 mg PO DAILY montelukast 10 mg tablet 10 mg PO BEDTIME albuterol sulfate [Ventolin HFA] 90 mcg/actuation HFA aerosol inhaler 2 puff inhalation Q6H PRN (Reason: Dyspnea) tiotropium bromide [Spiriva with HandiHaler] 18 mcg capsule, w/inhalation device 1 cap inhalation DAILY clozapine 100 mg tablet 100 mg PO DAILY buspirone 10 mg tablet 10 mg PO BID ibuprofen 600 mg tablet 600 mg PO Q6H PRN (Reason: pain) Qty: 20 0RF fluoxetine 40 mg capsule 80 mg PO DAILY prazosin 2 mg capsule 4 mg PO BID haloperidol 5 mg tablet 5 mg PO BID fluphenazine HCl 5 mg tablet 5 mg PO BID amlodipine 5 mg tablet 5 mg PO DAILY Qty: 30 2RF Print Language: Uzbek
[2024-06-15] MEDS: Nystatin Powder 15 GM BOTTLE 1 APPL TOPICAL (23:05)
[2024-06-15] MEDS: Doxycycline Monohydrate 100 MG CAPSULE PO (23:25)
[2024-06-15 23:29] VITALS: BP 150/96; PULSE 96; RESP 20; TEMP 36.6; O2SAT 97
== END 2024-06-15 23:31 | disposition home or self-care (01) ==
PROVIDERS: Emergency Provider Internal Medicine; PCP Nurse Practitioner Family
DX: B37.2 Candidiasis of skin and nail (principal); L30.4 Erythema intertrigo; R26.2 Difficulty in walking, not elsewhere classified; L73.8 Other specified follicular disorders; Z79.899 Other long term (current) drug therapy; Z87.891 Personal history of nicotine dependence
CPT/HCPCS: 99283

== ENCOUNTER 2024-06-17 11:11 | Outpatient (REF) | payer MEDICARE, MEDICAID, SELFPAY ==
[2024-06-17 11:29] LABS: MANUAL DIFF FLAG NO
[2024-06-17 11:42] LABS: Basophils Percent Auto 0.4 % (0-2); Eosinophils Absolute Auto 0.3 X10*3/uL (0.0-0.4); Eosinophils Percent Auto 3.7 % (0-4); Hematocrit 43.3 % (37.0-47.0); Hemoglobin 14.2 g/dl (12.0-16.0); Imm Gran Abs Auto 0.09 X10*3/uL (0.00-0.03); Imm Gran Pct Auto 1.2 % (0.0-0.4); Lymphocytes Absolute Auto 1.3 X10*3/uL (1.2-4.9); Lymphocytes Percent Auto 16.1 % (20-40); Mean Corpuscular HGB Conc 32.8 g/dl (31.0-35.0); Mean Corpuscular Hemoglobin 30.5 pg (27.0-33.0); Mean Corpuscular Volume 93.1 fL (80.0-98.0); Mean Platelet Volume 9.1 fL (9.4-12.3); Monocytes Absolute Auto 0.7 X10*3/uL (0.1-1.2); Monocytes Percent Auto 9.5 % (2-11); Neutrophils Absolute Auto 5.4 x10*3/uL (2.0-8.3); Neutrophils Percent Auto 69.1 % (45-73); Platelet Count 278 X10*3/uL (160-400); Red Blood Count 4.65 X10*6/uL (4.20-5.50); Red Cell Distribution Width 13.2 % (11.0-16.0); White Blood Count 7.8 X10*3/uL (4.8-10.8)
== END 2024-06-17 11:12 | disposition home or self-care (01) ==
LOC: HO.LABR 11:11
PROVIDERS: Visit Provider Psychiatry & Neurology Psychiatry
DX: Z79.899 Other long term (current) drug therapy (principal)
CPT/HCPCS: 36415; 85025

== ENCOUNTER 2024-06-17 21:07 | Emergency (ER) | payer MEDICARE, MEDICAID, SELFPAY ==
--- NOTE | ~2024-06-17 | XR_ITS ---
EXAMINATION: XR ANKLE, LEFT CLINICAL INFORMATION: Trauma COMPARISON: Left ankle December 17, 2023 TECHNIQUE: Three views of the left ankle. FINDINGS: No fracture. Alignment is anatomic. No erosions. Joint spaces are maintained. Soft tissues are normal. Tiny plantar calcaneal spur. XR/XR ankle LT min 3V IMPRESSION: Normal left ankle. Electronically signed by: Carlton Burgess MD 06/17/2024 10:24 PM EDT
[2024-06-17 21:12] VITALS: BP 138/90; PULSE 110; O2SAT 97; BMI 44.5
[2024-06-17 21:34] VITALS: BP 161/87; PULSE 107; RESP 18; TEMP 36.6; O2SAT 96
[2024-06-17] MEDS: Acetaminophen 325 MG TABLET 975 MG PO (22:14)
[2024-06-17] MEDS: Ibuprofen 600 MG TABLET PO (22:14)
--- NOTE | 2024-06-17 23:23 | ED_ITS ---
HPI - General Adult General Chief complaint: Fall Stated complaint: TWISTED ANKLE, SWOLLEN PER EMS Time Seen by Provider: 06/17/24 21:57 Source: patient Limitations: no limitations History of Present Illness ED Provider: Carolina Mcmahon PA-C HPI narrative: 48-year-old female with extensive psychiatric history who presents with left ankle pain. Patient states she tripped, twisting her ankle yesterday, patient i s ambulatory, but she states it hurts to walk. Related Data Home Medications ?Medication ?Instructions ?Recorded ?Confirmed albuterol sulfate 90 mcg/actuation 2 puff inhalation Q6H PRN Dyspnea 05/24/24 06/12/24 aerosol inhaler (Ventolin HFA) atorvastatin 10 mg tablet 10 mg PO BEDTIME 05/24/24 06/12/24 buspirone 10 mg tablet 10 mg PO BID 05/24/24 06/12/24 clozapine 100 mg tablet 100 mg PO DAILY 05/24/24 06/12/24 famotidine 10 mg tablet (Heartburn 10 mg PO BIDAC 05/24/24 06/12/24 Relief (famotidine)) metformin 500 mg tablet 500 mg PO BID 05/24/24 06/12/24 montelukast 10 mg tablet 10 mg PO BEDTIME 05/24/24 06/12/24 pantoprazole 40 mg tablet,delayed 40 mg PO DAILY 05/24/24 06/12/24 release tiotropium bromide 18 mcg capsule 1 cap inhalation DAILY 05/24/24 06/12/24 with inhalation device (Spiriva with HandiHaler) fluoxetine 40 mg capsule 80 mg PO DAILY 05/30/24 06/12/24 fluphenazine HCl 5 mg tablet 5 mg PO BID 05/30/24 06/12/24 haloperidol 5 mg tablet 5 mg PO BID 05/30/24 06/12/24 prazosin 2 mg capsule 4 mg PO BID 05/30/24 06/12/24 Previous Rx's ?Medication ?Instructions ?Recorded amlodipine 5 mg tablet 5 mg PO DAILY #30 tabs 06/06/24 ibuprofen 600 mg tablet 600 mg PO Q6H PRN pain #20 tabs 06/13/24 doxycycline hyclate 100 mg tablet 100 mg PO BID #20 tabs 06/15/24 nystatin 100,000 unit/gram topical 1 appl topical QID #30 grams 06/15/24 powder acetaminophen 500 mg tablet 1,000 mg (2 x 500 mg) PO Q8H PRN 06/17/24 (Tylenol Extra Strength) pain #18 tabs Allergies Allergy/AdvReac Type Severity Reaction Status Date / Time azithromycin [AZITHROMYCIN] Allergy Severe Rash Verified 06/17/24 21:15 Fish Containing Products Allergy Severe Anaphylaxis Verified 06/17/24 21:15 codeine [Codeine] Allergy Intermediate Rash Verified 06/17/24 21:15 Penicillins Allergy Intermediate Rash Verified 06/17/24 21:15 prednisone [Prednisone] Allergy Intermediate Rash Verified 06/17/24 21:15 Sulfa (Sulfonamide Allergy Intermediate Rash Verified 06/17/24 21:15 Antibiotics) [Sulfa (Sulfonamides)] ziprasidone [From Geodon] Allergy Intermediate dysuria, Verified 06/17/24 21:15 rash lithium Allergy Rash Verified 06/17/24 21:15 Review of Systems Review of Systems: Yes all other systems are reviewed and are negative Constitutional: Constitutional: Denies fever(s) Musculoskeletal: Musculoskeletal: Reports arthralgias and Denies tingling Neurologic: Denies tingling PMFSH Past Medical History Attestation statement: The following information was validated with the patient. Medical History Asthma Suicidal ideation MDD (major depressive disorder), recurrent episode, severe Chest pain Acute anxiety COVID-19 Full body hives Major depression Dizziness Suicide attempt UTI (urinary tract infection) Acetaminophen overdose COVID History of attempted suicide History of non-suicidal self-harm Hypomagnesemia Suicide attempt Suicide attempt by acetaminophen overdose Acetaminophen overdose Depression Diabetes type 2, controlled Borderline personality disorder PTSD (post-traumatic stress disorder) Overdose GERD (gastroesophageal reflux disease) Mood disorder Hyperlipidemia Bronchitis Social History Social History Household Members: None Household Members Other:: detention Housing: Other Housing Other:: Assisted Do you presently have visiting nurse or other home services: No Unable to assess alcohol history related to: Unknown Alcohol intake: former Comment: sitter in room Patient Tobacco Use Status: Former Tobacco user Tobacco use type: Cigarette Cigarette Packs Per Day: 1 Cigarettes Per Day: 20.0 Years Smoked: 22 Smoked in Last 30 Days: Yes e-Cigarette/Vaping Use: Never Used Second Hand Smoke Exposure: No Use of substances other than those prescribed or required for medical reasons: No Substance Use Type: Marijuana Advance Directives: No Advance Directives Information Provided: No Do you have a plan to hurt others: No Plan Patient : No service: No Current occupational status: unemployed and disabled Sexual orientation: Straight/Heterosexual Physical Exam ED Vital Signs: Vital Signs - 24 hr 06/17/24 21:12 06/17/24 21:34 Temperature 97.9 F Pulse Rate 107 H Respiratory Rate 18 Blood Pressure 161/87 H Pulse Oximetry 96 Oxygen Delivery Method Room Air Room Air BMI result Body Mass Index 44.5 Const Other: Awake Orientation/consciousness: patient oriented x3 Resp Effort & Inspection: normal respiratory effort Cardio Other: Normal peripheral perfusion Skin Other: Warm dry no rash Neuro General: patient oriented x3, no focal motor deficits and CN's II-XI intact bilaterally Extrem Other: No objective swelling, or ecchymosis no deformity, she is also ambulatory in the ER Psych Other: Cooperative Medications Administered Discontinued Medications Generic Name Dose Route Start Last Admin Trade Name Elmer PRN Reason Stop Dose Admin Acetaminophen 975 mg 06/17/24 21:58 06/17/24 22:14 Acetaminophen 325 Mg Tablet PO 06/17/24 21:59 975 mg ONCE ONE Administration Ibuprofen 600 mg 06/17/24 21:58 06/17/24 22:14 Ibuprofen 600 Mg Tablet PO 06/17/24 21:59 600 mg ONCE ONE Administration Medical Decision Making Medical Decision Making [facility] Narrative: 48-year-old female with extensive psychiatric history who presents with left ankle pain. Patient states she tripped, twisting her ankle yesterday, patient is ambulatory, but she states it hurts to walk. Problem: Psychiatric illness History: Per patient I have considered the following differential diagnoses: Fracture, dislocation, contusion, sprain Plan: X-ray obtained, no fracture we will send with home care instructions in the use of crutches. I have independently reviewed the following tests: X-ray left ankle: No fracture no dislocation Discharge Plan Discharge Clinical Impression: Left ankle sprain Patient Disposition: Home, Self-Care Instructions: Ankle Sprain (ED) Additional Instructions: The x-ray was negative for fracture or dislocation, you have a sprain. See home care instructions. You can use [id number] ibuprofen 600 mg taken every 6 hours with food, alternated with the use of [id number] Tylenol 1000 mg taken every 8 hours. Follow up with your primary care provider as needed. Bear weight as tolerated, use the crutches as needed. Prescriptions: New acetaminophen [Tylenol Extra Strength] 500 mg tablet 1,000 mg PO Q8H PRN (Reason: pain) Qty: 18 0RF No Action metformin 500 mg tablet 500 mg PO BID famotidine [Heartburn Relief (famotidine)] 10 mg tablet 10 mg PO BIDAC atorvastatin 10 mg tablet 10 mg PO BEDTIME pantoprazole 40 mg tablet,delayed release (DR/EC) 40 mg PO DAILY montelukast 10 mg tablet 10 mg PO BEDTIME albuterol sulfate [Ventolin HFA] 90 mcg/actuation HFA aerosol inhaler 2 puff inhalation Q6H PRN (Reason: Dyspnea) tiotropium bromide [Spiriva with HandiHaler] 18 mcg capsule, w/inhalation device 1 cap inhalation DAILY clozapine 100 mg tablet 100 mg PO DAILY buspirone 10 mg tablet 10 mg PO BID ibuprofen 600 mg tablet 600 mg PO Q6H PRN (Reason: pain) Qty: 20 0RF doxycycline hyclate 100 mg tablet 100 mg PO BID Qty: 20 0RF nystatin 100,000 unit/gram powder 1 appl topical QID Qty: 30 0RF fluoxetine 40 mg capsule 80 mg PO DAILY prazosin 2 mg capsule 4 mg PO BID haloperidol 5 mg tablet 5 mg PO BID fluphenazine HCl 5 mg tablet 5 mg PO BID amlodipine 5 mg tablet 5 mg PO DAILY Qty: 30 2RF Print Language: Rw[place]an
[2024-06-17 23:32] VITALS: BP 134/89; PULSE 103; RESP 15; TEMP 36.8; O2SAT 96
[2024-06-17 23:41] VITALS: BP 134/89; PULSE 103; RESP 15; TEMP 36.8; O2SAT 96
== END 2024-06-17 23:42 | disposition home or self-care (01) ==
PROVIDERS: Emergency Provider Emergency Medicine
DX: S93.402A Sprain of unspecified ligament of left ankle, initial encounter (principal); M25.572 Pain in left ankle and joints of left foot; X50.1XXA Overexertion from prolonged static or awkward postures, initial encounter; Y93.89 Activity, other specified; Y92.89 Other specified places as the place of occurrence of the external cause; Y99.8 Other external cause status; Z79.899 Other long term (current) drug therapy
CPT/HCPCS: 36415; 73610; 85025; 99283; 99284

== ENCOUNTER 2024-06-23 21:39 | Inpatient (IN) | payer MEDICARE, MEDICAID, SELFPAY ==
[2024-06-23 21:49] VITALS: BP 130/90; BP 147/83; PULSE 117; PULSE 120; RESP 20; TEMP 36.8; O2SAT 96; BMI 42.2
--- NOTE | 2024-06-23 22:00 | PC.NURSE ---
Pt [facility] from [facility], Pt reports hearing voices telling her to cut self. Left arm with superficial cuts obtained by hair baret. States I just want to . Pt changed over by security. 1:1 sitter at bedside for safety. Reports pain to left FA.
--- NOTE | 2024-06-23 23:20 | MHC.CARE ---
Pt requested to speak to this business writer in regard to her current symptoms. Pt stated that she has active suicidal ideation with plan and intent to overdose on medications and indicated that if discharged that she will find a way to access pills and can steal them if needed. Despite pt's well known history to the Care Team and other crisis teams, pt stated that usually she requests to leave due to wanting to smoke a cigarette and stated: You know me, you know that i would not tell you i need to stay if i didn't need to stay . This business writer spoke to pt about recanting previously endorsed statements when she no longer wants to be in the ED and indicated that she may be re seen in the AM however, at this time due to her ongoing and increased thoughts to harm herself if evaluated on third shift it is likely she will be made a bed search and if appropriate she can be re seen tomorrow and discharged. Pt asked that this business writer pass on that she is not doing well and should not be able to be discharged tomorrow even if she is advocating for discharge and indicated repeatedly that she will obtain medications and take an intentional overdose. Pt is understanding that historically she will endorse statements and immediately want to leave however, at this time has remained adamant that information about the likeliness of overdosing if and when discharged should be passed on. Information was passed to third shift clinician and will be passed to first shift. It is likely that pt will recant statements however, at this time she does not appear safe to discharge back to the community and has a known history of intentional overdoses.
[2024-06-24] VITALS (7 sets, daily range): BP systolic 137–182; BP diastolic 78–95; PULSE 99–114; RESP 16–20; TEMP 36.4–36.9; O2SAT 95–98; BMI 42.2
--- NOTE | 2024-06-24 00:33 | ED.PSYCH ---
HPI - Psych General Chief Complaint: Psychiatric Symptoms Stated Complaint: HEARING VOICES, MINOR CUTS PER EMS Time Seen by Provider: 06/23/24 21:43 Source: patient and EMS Mode of arrival: EMS Limitations: no limitations History of Present Illness ED Provider: Dr. Eileen Ryan HPI Narrative: Patient comes to the emergency room complaining of altered hallucinations. Patient states that she has wants to . Patient states that she went to the store to buy Tylenol to overdose. However, she stopped herself put the medications back and came to the emergency room. Patient has been cutting herself in the left forearm. Related Data Home Medications ?Medication ?Instructions ?Recorded ?Confirmed albuterol sulfate 90 mcg/actuation 2 puff inhalation Q6H PRN Dyspnea 05/24/24 06/12/24 aerosol inhaler (Ventolin HFA) atorvastatin 10 mg tablet 10 mg PO BEDTIME 05/24/24 06/12/24 buspirone 10 mg tablet 10 mg PO BID 05/24/24 06/12/24 clozapine 100 mg tablet 100 mg PO DAILY 05/24/24 06/12/24 famotidine 10 mg tablet (Heartburn 10 mg PO BIDAC 05/24/24 06/12/24 Relief (famotidine)) metformin 500 mg tablet 500 mg PO BID 05/24/24 06/12/24 montelukast 10 mg tablet 10 mg PO BEDTIME 05/24/24 06/12/24 pantoprazole 40 mg tablet,delayed 40 mg PO DAILY 05/24/24 06/12/24 release tiotropium bromide 18 mcg capsule 1 cap inhalation DAILY 05/24/24 06/12/24 with inhalation device (Spiriva with HandiHaler) fluoxetine 40 mg capsule 80 mg PO DAILY 05/30/24 06/12/24 fluphenazine HCl 5 mg tablet 5 mg PO BID 05/30/24 06/12/24 haloperidol 5 mg tablet 5 mg PO BID 05/30/24 06/12/24 prazosin 2 mg capsule 4 mg PO BID 05/30/24 06/12/24 Previous Rx's ?Medication ?Instructions ?Recorded amlodipine 5 mg tablet 5 mg PO DAILY #30 tabs 06/06/24 ibuprofen 600 mg tablet 600 mg PO Q6H PRN pain #20 tabs 06/13/24 doxycycline hyclate 100 mg tablet 100 mg PO BID #20 tabs 06/15/24 nystatin 100,000 unit/gram topical 1 appl topical QID #30 grams 06/15/24 powder acetaminophen 500 mg tablet 1,000 mg (2 x 500 mg) PO Q8H PRN 06/17/24 (Tylenol Extra Strength) pain #18 tabs Allergies Allergy/AdvReac Type Severity Reaction Status Date / Time azithromycin [AZITHROMYCIN] Allergy Severe Rash Verified 06/23/24 21:50 Fish Containing Products Allergy Severe Anaphylaxis Verified 06/23/24 21:50 codeine [Codeine] Allergy Intermediate Rash Verified 06/23/24 21:50 Penicillins Allergy Intermediate Rash Verified 06/23/24 21:50 prednisone [Prednisone] Allergy Intermediate Rash Verified 06/23/24 21:50 Sulfa (Sulfonamide Allergy Intermediate Rash Verified 06/23/24 21:50 Antibiotics) [Sulfa (Sulfonamides)] ziprasidone [From Geodon] Allergy Intermediate dysuria, Verified 06/23/24 21:50 rash lithium Allergy Rash Verified 06/23/24 21:50 Review of Systems Review of Systems: Constitutional : No Weight loss, No Fever, No Chills, No Night Sweats, No Fatigue, No Malaise ENT/Mouth : No Hearing loss, No Ear Pain, No Nasal Congestion, No Sinus Pain, No Hoarseness, No sore throat, No Rhinorrhea, No Swallowing Difficulty Eyes: No Eye Pain, No Swelling, No Redness, No Foreign Body, No Discharge, No Vision Changes Cardiovascular : No Chest Pain, No SOB, No Dyspnea on Exertion, No Orthopnea, No Edema, No Palpitations Respiratory : No Cough, No Sputum, No Wheezing, No Smoke Exposure, No Dyspnea Gastrointestinal : No Nausea, No Vomiting, No Diarrhea, No Constipation, No abdominal Pain, No Hematochezia, No Melena Genitourinary : no irregular bleeding, No Dysuria, No Urinary Frequency, No Hematuria, No Urinary Incontinence, No Urgency, No Flank Pain, No Urinary Flow Changes, No Hesitancy Musculoskeletal : No joint pain, No Myalgias, No Joint Swelling Skin : No Skin Lesions, No rash Neuro : No Weakness, No Numbness, No Paresthesias, No Loss of Consciousness, No Dizziness, No Headache Psych : Complaining of anxiety, patient says she feels scared, has been cutting her arm again. Patient contemplating overdosing with medications Heme/Lymph: No Bruising, No Bleeding,No Lymphadenopathy Endocrine : No Polyuria, No Polydipsia, No Temperature Intolerance [facility] Past Medical History Medical History Asthma Suicidal ideation MDD (major depressive disorder), recurrent episode, severe Chest pain Acute anxiety COVID-19 Full body hives Major depression Dizziness Suicide attempt UTI (urinary tract infection) Acetaminophen overdose COVID History of attempted suicide History of non-suicidal self-harm Hypomagnesemia Suicide attempt Suicide attempt by acetaminophen overdose Acetaminophen overdose Depression Diabetes type 2, controlled Borderline personality disorder PTSD (post-traumatic stress disorder) Overdose GERD (gastroesophageal reflux disease) Mood disorder Hyperlipidemia Bronchitis Social History Social History Household Members: None Household Members Other:: senior living Housing: Other Housing Other:: Intermediate Do you presently have visiting nurse or other home services: No Unable to assess alcohol history related to: Unknown Alcohol intake: former Comment: sitter in room Patient Tobacco Use Status: Former Tobacco user Tobacco use type: Cigarette Cigarette Packs Per Day: 1 Cigarettes Per Day: 20.0 Years Smoked: 22 e-Cigarette/Vaping Use: Never Used Second Hand Smoke Exposure: No Substance Use Type: Marijuana Advance Directives: No Advance Directives Information Provided: No Patient : No service: No Current occupational status: unemployed and disabled Sexual orientation: Straight/Heterosexual Physical Exam Vital Signs: Vital Signs: Last Vital Signs Temp 98.3 F 06/23/24 21:49 Pulse 117 H 06/23/24 21:49 Resp 20 06/23/24 21:49 BP 147/83 H 06/23/24 21:49 Pulse Ox 96 06/23/24 21:49 O2 Del Method Room Air 06/23/24 21:49 BMI result Body Mass Index 42.2 Const: Other: Appearance: Alert. Oriented X3. No acute distress. Eyes: Pupils equal, round and reactive to light. ENT: Pharynx normal. Neck: Normal inspection. Neck supple. No lymph nodes noted. No crepitus CVS: Normal heart rate and rhythm. Pulses normal. Normal S1 and S2 Respiratory: No respiratory distress. Breath sounds normal. No Wheezing. No rales Abdomen: Soft and nontender. No rigidity. No distention. Skin: Skin warm and dry. On the left forearm, patient has multiple superficial abrasions. Extremities: No lower extremity edema. No Lacerations. No Rash Neuro: Oriented X 3. No motor deficit. No sensory deficit. Moving all extremities. No slurred speech. CN 2 through 12 grossly intact Psych: calm, cooperative, normal affect Medical Decision Making Medical Decision Making MDM Narrative: -patient's labs have been pending -the care team evaluated the patient. Patient is on a Section 12, patient to be reassessed in the morning -physician observation started at 00:05 Sign-out given to my colleague Dr. Ruano Differential Diagnosis Differential Diagnoses: The differential diagnosis associated with the presentation includes (Anxiety, depression, schizophrenia) Admission/Observation Consideration of admission/observation: Escalation of care including admission/observation considered Critical Care Time Critical Care Time Critical Care Time: Yes Total Critical Care Time: 30 Attestation: I have personally provided critical care time. Time includes review of lab data, radiology results, discussion with consultants, and monitoring for potential decompensation. Intervention performed as documented. Discharge Plan Discharge Clinical Impression: Suicidal ideation, Auditory hallucination Patient Disposition: Still a Patient Prescriptions: No Action metformin 500 mg tablet 500 mg PO BID famotidine [Heartburn Relief (famotidine)] 10 mg tablet 10 mg PO BIDAC atorvastatin 10 mg tablet 10 mg PO BEDTIME pantoprazole 40 mg tablet,delayed release (DR/EC) 40 mg PO DAILY montelukast 10 mg tablet 10 mg PO BEDTIME albuterol sulfate [Ventolin HFA] 90 mcg/actuation HFA aerosol inhaler 2 puff inhalation Q6H PRN (Reason: Dyspnea) tiotropium bromide [Spiriva with HandiHaler] 18 mcg capsule, w/inhalation device 1 cap inhalation DAILY clozapine 100 mg tablet 100 mg PO DAILY buspirone 10 mg tablet 10 mg PO BID ibuprofen 600 mg tablet 600 mg PO Q6H PRN (Reason: pain) Qty: 20 0RF doxycycline hyclate 100 mg tablet 100 mg PO BID Qty: 20 0RF nystatin 100,000 unit/gram powder 1 appl topical QID Qty: 30 0RF fluoxetine 40 mg capsule 80 mg PO DAILY prazosin 2 mg capsule 4 mg PO BID haloperidol 5 mg tablet 5 mg PO BID fluphenazine HCl 5 mg tablet 5 mg PO BID amlodipine 5 mg tablet 5 mg PO DAILY Qty: 30 2RF acetaminophen [Tylenol Extra Strength] 500 mg tablet 1,000 mg PO Q8H PRN (Reason: pain) Qty: 18 0RF Interventions: Yates-Suicide Risk Severity Scale Last Done: 06/23/24 22:00 Print Language: Czech
[2024-06-24 01:12] LABS: Anion Gap 16 (12-20); Blood Urea Nitrogen 12 mg/dL (9-16); Calcium 9.2 mg/dL (8.4-10.2); Carbon Dioxide 25 mmol/L (22-29); Chloride 107 mmol/L (96-108); Creatinine Clr Calc Pharmacy 106.1; Estimated Glomerular Filt Rate > 60; Ethanol < 10 mg/dL; Glucose Random 159 mg/dL (60-115); Potassium 3.6 mmol/L (3.3-5.1); Sodium 144 mmol/L (135-145)
[2024-06-24 01:16] LABS: HCG Quantitative < 2 mIU/mL
[2024-06-24 03:57] LABS: Basophils Percent Auto 0.4 % (0-2); Eosinophils Absolute Auto 0.3 X10*3/uL (0.0-0.4); Eosinophils Percent Auto 4.2 % (0-4); Hematocrit 35.4 % (37.0-47.0); Imm Gran Abs Auto 0.03 X10*3/uL (0.00-0.03); Imm Gran Pct Auto 0.4 % (0.0-0.4); Lymphocytes Absolute Auto 1.9 X10*3/uL (1.2-4.9); Lymphocytes Percent Auto 25.1 % (20-40); MANUAL DIFF FLAG NO; Mean Corpuscular HGB Conc 33.9 g/dl (31.0-35.0); Mean Corpuscular Hemoglobin 30.9 pg (27.0-33.0); Mean Corpuscular Volume 91.2 fL (80.0-98.0); Monocytes Absolute Auto 0.7 X10*3/uL (0.1-1.2); Monocytes Percent Auto 8.8 % (2-11); Neutrophils Absolute Auto 4.7 x10*3/uL (2.0-8.3); Neutrophils Percent Auto 61.1 % (45-73); Platelet Count 289 X10*3/uL (160-400); Red Blood Count 3.88 X10*6/uL (4.20-5.50); White Blood Count 7.6 X10*3/uL (4.8-10.8)
--- NOTE | 2024-06-24 05:05 | PC.NURSE ---
Pt ambulated to the BR, reports she is unable to give a urine sample at this time. PO fluids given per request.
--- NOTE | 2024-06-24 05:47 | PC.NURSE ---
Belongings in C1.
--- NOTE | 2024-06-24 07:56 | PC.NURSE ---
report given to elisabeth CARDOSO. patient ambulated with tech to unit without incident. plan of care ongoing
[2024-06-24 13:30] LABS: Appearance Urine Clear; Color Urine Yellow; Glucose Urine UA Negative (Negative); Leukocyte Esterase Urine Negative (Negative); Nitrite Urine Negative (Negative); PH 6.5 (5.0-9.0); Urine Blood Negative (Negative); Urine Ketones Negative (Negative); Urine Protein Negative (Neg-Trace)
[2024-06-24 14:01] LABS: Amphetamine Screen Urine Not Detected (Not Detect); Barbiturates, Urine Not Detected (Not Detect); Benzodiazepines Screen Urine Not Detected (Not Detect); Buprenorphine Scr Not Detected (Not Detect); Cannabinoid Screen Urine Not Detected (Not Detect); Cocaine Screen Urine Not Detected (Not Detect); Fentanyl, urine Not Detected (Not Detect); Methadone Screen, Urine Not Detected (Not Detect); Opiate Screen Urine Not Detected (Not Detect); Oxycodone Screen Urine Not Detected (Not Detect); Phencyclidine Screen Urine Not Detected (Not Detect)
[2024-06-24] MEDS: cloZAPine 100 MG TABLET PO (17:51)
[2024-06-24] MEDS: metFORMIN HCl 500 MG TABLET PO (17:51)
--- NOTE | 2024-06-24 19:07 | PC.ADMIT ---
Lucita is a 48 year old female who came to from [facility] [place] [place] [facility] at 16:45 on a 12b from her [facility] in [facility]. Lucita is well known to [facility] [place] [place].Lucita states that she had been having altered hallucinations and stated that she has wanted to . Lucita states that she went to the store to buy Tylenol to overdose, however, she stopped herself put the medications back and came to the emergency room. Skin check performed, Lucita has been cutting herself in the left forearm and has several superficial cuts. uLcita was cooperative with the admission process. Her affect is flat and depressed, she endorses SI with no plan and is presently hearing voices urging self harm. Lucita is rating depression a 9 and anxiety 7. Lucita was initially put on 15 minute checks but was feeling unsafe so put on 5 minute checks in the evening for safety, she expressed that she may need a 1:1 for feeling unsafe.
[2024-06-24] MEDS: hydrOXYzine HCL 25 MG TABLET PO (19:25)
[2024-06-24] MEDS: LORazepam 0.5 MG TABLET PO (19:25)
[2024-06-24] MEDS: NaPROXEN 500 MG TABLET PO (20:01)
[2024-06-24] MEDS: Benztropine Mesylate 1 MG TABLET PO (20:01)
[2024-06-24] MEDS: Mirtazapine 7.5 MG TABLET PO (20:03)
[2024-06-24] MEDS: Doxycycline Monohydrate 100 MG CAPSULE PO (20:03)
[2024-06-24] MEDS: busPIRone HCl 10 MG TABLET PO (20:03)
[2024-06-24] MEDS: fluPHENAZine HCl 5 MG TABLET PO (20:03)
[2024-06-24] MEDS: Omeprazole 20 MG CAPSULE.DR PO (20:03)
[2024-06-24] MEDS: Prazosin HCL 1 MG CAPSULE 2 MG PO (20:04)
[2024-06-24] MEDS: HaloperidoL 5 MG TABLET PO (20:05)
[2024-06-24] MEDS: Albuterol Sulfate 2.5 MG, Albuterol/Iprat 2.5/0.5MG 3 ML 3 ML INHALE (22:00)
[2024-06-24] MEDS: Temazepam 15 MG CAPSULE PO (22:16)
[2024-06-25 08:16] VITALS: BP 149/91; PULSE 95; TEMP 36.6; O2SAT 92
[2024-06-25] MEDS: Fluticasone/Umeclidinium/Vilanterol 200/62.5/25 BLST.W.DEV 1 PUFF INHALE (08:30)
[2024-06-25] MEDS: metFORMIN HCl 500 MG TABLET PO ×2 (08:30→17:32)
[2024-06-25 08:32] VITALS: BP 149/91
[2024-06-25] MEDS: FLUoxetine HCl 20 MG CAPSULE 40 MG PO (08:32)
[2024-06-25] MEDS: Prazosin HCL 1 MG CAPSULE 2 MG PO ×2 (08:32→20:54)
[2024-06-25] MEDS: NaPROXEN 500 MG TABLET PO ×2 (08:32→20:53)
[2024-06-25] MEDS: fluPHENAZine HCl 5 MG TABLET PO ×2 (08:32→20:54)
[2024-06-25] MEDS: Montelukast Sodium 10 MG TABLET PO (08:33)
[2024-06-25] MEDS: cloZAPine 100 MG TABLET PO (08:33)
[2024-06-25] MEDS: busPIRone HCl 10 MG TABLET PO ×2 (08:33→20:54)
[2024-06-25] MEDS: HaloperidoL 5 MG TABLET PO ×2 (08:33→20:54)
[2024-06-25] MEDS: Atorvastatin Calcium 10 MG TABLET PO (08:33)
[2024-06-25] MEDS: Benztropine Mesylate 1 MG TABLET PO ×2 (08:33→20:54)
[2024-06-25] MEDS: Omeprazole 20 MG CAPSULE.DR PO ×2 (08:33→20:53)
[2024-06-25 08:34] VITALS: BP 149/91
[2024-06-25] MEDS: amLODIPine Besylate 5 MG TABLET PO (08:34)
[2024-06-25] MEDS: Doxycycline Monohydrate 100 MG CAPSULE PO ×2 (08:34→20:54)
[2024-06-25 09:20] LABS: Estimated Average Glucose 131 mg/dL; Hemoglobin A1c % 6.2 % (<6.0)
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
[2024-06-25 09:41] LABS: Cholesterol 205 mg/dL (<200); HDL Cholesterol 38 mg/dL (>40); LDL Cholesterol Calculated 111 mg/dL (<100); Magnesium 1.8 mg/dL (1.6-2.6); Triglycerides 283 mg/dL (<150)
[2024-06-25 09:57] LABS: Free T4 (Free Thyroxine) 0.73 ng/dL (0.71-1.85); Thyroid Stimulating Hormone 1.01 uIU/mL (0.32-4.0)
[2024-06-25 10:01] LABS: Folate 11.3 ng/mL (> or = 4.0); Vitamin B12 439 pg/mL (200-900)
[2024-06-25] MEDS: LORazepam 0.5 MG TABLET PO (15:26)
[2024-06-25] MEDS: hydrOXYzine HCL 25 MG TABLET PO (16:08)
[2024-06-25] MEDS: Albuterol Sulfate 90 MCG 8 GM INHALER 2 PUFF INHALE (16:50)
[2024-06-25] MEDS: Famotidine 20 MG TABLET PO (18:44)
[2024-06-25] MEDS: Albuterol/Iprat 2.5/0.5MG 3 ML AMPUL.NEB INHALE (19:26)
[2024-06-25 19:29] VITALS: PULSE 117; O2SAT 98
[2024-06-25 20:00] VITALS: BP 148/89; PULSE 118; RESP 20; TEMP 36.4; O2SAT 95
[2024-06-25] MEDS: Mirtazapine 7.5 MG TABLET PO (20:53)
[2024-06-25] MEDS: Temazepam 15 MG CAPSULE PO (20:54)
[2024-06-26 08:09] VITALS: BP 131/79; PULSE 113; RESP 18; TEMP 36.4; O2SAT 96
[2024-06-26] MEDS: FLUoxetine HCl 20 MG CAPSULE 40 MG PO (08:47)
[2024-06-26] MEDS: Montelukast Sodium 10 MG TABLET PO (08:47)
[2024-06-26] MEDS: HaloperidoL 5 MG TABLET PO ×2 (08:47→20:36)
[2024-06-26] MEDS: amLODIPine Besylate 5 MG TABLET PO (08:47)
[2024-06-26] MEDS: Omeprazole 20 MG CAPSULE.DR PO ×2 (08:48→20:36)
[2024-06-26] MEDS: Famotidine 20 MG TABLET PO ×3 (08:48→16:08)
[2024-06-26] MEDS: Prazosin HCL 1 MG CAPSULE 2 MG PO ×2 (08:48→20:36)
[2024-06-26] MEDS: NaPROXEN 500 MG TABLET PO ×2 (08:48→20:36)
[2024-06-26] MEDS: metFORMIN HCl 500 MG TABLET PO ×2 (08:48→16:08)
[2024-06-26] MEDS: Atorvastatin Calcium 10 MG TABLET PO (08:48)
[2024-06-26] MEDS: cloZAPine 100 MG TABLET PO (08:48)
[2024-06-26] MEDS: Doxycycline Monohydrate 100 MG CAPSULE PO ×2 (08:48→20:35)
[2024-06-26] MEDS: Benztropine Mesylate 1 MG TABLET PO ×2 (08:48→20:35)
[2024-06-26] MEDS: fluPHENAZine HCl 5 MG TABLET PO ×2 (08:49→20:35)
[2024-06-26] MEDS: busPIRone HCl 10 MG TABLET PO ×2 (08:49→20:35)
[2024-06-26] MEDS: Fluticasone/Umeclidinium/Vilanterol 200/62.5/25 BLST.W.DEV 1 PUFF INHALE (09:12)
--- NOTE | 2024-06-26 09:24 | P.PNPSI_ITS ---
Subjective Subjective Date of Service: 06/26/24 Reason For Visit: Depression, PTSD, borderline personality disorder Interim History: Met with Patient; discussed with team Patient reports that she is doing much better and that her mood is good and of note, affect is noticeably brighter and patient appropriately interacting with peers and staff in the milieu, calm and able to enjoy interactions. Patient reports AH was intermittently present the past day but not today. She says and does not need a one-to-one with which specification writer agrees. She denies any urges of self-harm and feels that the dysregulation she had the day before his past. Patient is asking for discharge tomorrow. Business Development Professional and Team agrees she is back to baseline and her outpatient team agrees with discharge plan for tomorrow. Business Development Professional discussed elevated cholesterol which patient says she will talk about with her PCP. Mental Status Exam Mental Status Exam Narrative: Pt is alert and oriented; behavior is cooperative, friendly and calm; patient is not in distress; dressed in casual attire with unkempt hair but adequate hygiene; mood is described as good and affect congruent; eye contact appropriate; Speech is normal rate, volume and prosody and not pressured; no psychomotor agitation/retardation present; thought process is organized and goal directed; Thought content is on discharge; otherwise pertinent to relevant topics and without any delusional content, paranoid ideations or grandiosity; denies any SI/HI or urges to self-harm; denies any current AH and. There is no evidence of perceptual disturbance. Patients insight and judgment are intact, at baseline and adequate. Diagnostics Vital Signs (24Hr): Vital Signs - 24 hr 06/25/24 19:29 06/25/24 20:00 06/26/24 08:09 Temperature 97.5 F 97.6 F Pulse Rate 117 H 118 H 113 H Respiratory Rate 20 18 Blood Pressure 148/89 H 131/79 Pulse Oximetry 95 96 Oxygen Delivery Method Room Air Room Air BMI result Body Mass Index 42.2 Labs 06/24/24 03:52 06/24/24 00:40 Labs: Laboratory Results - last 48 hr 06/24/24 06/25/24 13:18 08:56 Estimat Average Glucose 131 Hemoglobin A1c % 6.2 H Magnesium 1.8 Triglycerides 283 H Cholesterol 205 H LDL Cholesterol, Calc 111 H HDL Cholesterol 38 L Vitamin B12 439 Folate 11.3 TSH 1.01 Free T4 0.73 Urine Color Yellow Urine Appearance Clear Urine pH 6.5 Ur Specific [place] 1.020 Urine Protein Negative Urine Glucose (UA) Negative Urine Ketones Negative Urine Blood Negative Urine Nitrite Negative Ur Leukocyte Esterase Negative Urine Opiates Screen Not Detected Ur Buprenorphine Scrn Not Detected Ur Oxycodone Screen Not Detected Urine Methadone Screen Not Detected Urine Fentanyl Screen Not Detected Ur Barbiturates Screen Not Detected Ur Phencyclidine Scrn Not Detected Ur Amphetamines Screen Not Detected U Benzodiazepines Scrn Not Detected Urine Cocaine Screen Not Detected U Marijuana (THC) Screen Not Detected Medications Medications Current Medications Acetaminophen (Acetaminophen 325 Mg Tablet) 650 mg PO Q6H PRN PRN Reason: Headache/Pain Mild Scale (1-3) Al Hydroxide/Mg Hydroxide (Magnesium Hydrox/Alum Hydrox 30 Ml Oral.Susp) 30 ml PO Q6H PRN PRN Reason: Heartburn/Nausea Albuterol Sulfate (Albuterol Sulfate 90 Mcg 8 Gm Inhaler) 2 puff INHALE Q6H PRN PRN Reason: Wheezing Last Admin: 06/25/24 16:50 Dose: 2 puff Albuterol/Ipratropium (Albuterol/Iprat 2.5/0.5mg 3 Ml Ampul.Neb) 3 ml INHALE BID PRN PRN Reason: Shortness of Breath Last Admin: 06/25/24 19:26 Dose: 3 ml Amlodipine Besylate (Amlodipine Besylate 5 Mg Tablet) 5 mg PO DAILY ON LICENSE OF [facility]; Protocol Last Admin: 06/26/24 08:47 Dose: 5 mg Atorvastatin Calcium (Atorvastatin Calcium 10 Mg Tablet) 10 mg PO DAILY ON LICENSE OF [facility] Last Admin: 06/26/24 08:48 Dose: 10 mg Benztropine Mesylate (Benztropine Mesylate 1 Mg Tablet) 1 mg PO BID ON LICENSE OF [facility] Last Admin: 06/26/24 08:48 Dose: 1 mg Buspirone HCl (Buspirone Hcl 10 Mg Tablet) 10 mg PO BID ON LICENSE OF [facility] Last Admin: 06/26/24 08:49 Dose: 10 mg Clozapine (Clozapine 100 Mg Tablet) 100 mg PO DAILY ON LICENSE OF [facility] Last Admin: 06/26/24 08:48 Dose: 100 mg Doxycycline Monohydrate (Doxycycline Monohydrate 100 Mg Capsule) 100 mg PO BID ON LICENSE OF [facility] Last Admin: 06/26/24 08:48 Dose: 100 mg Famotidine (Famotidine 20 Mg Tablet) 20 mg PO TIDWM ON LICENSE OF [facility] Last Admin: 06/26/24 08:48 Dose: 20 mg Fluoxetine HCl (Fluoxetine Hcl 20 Mg Capsule) 40 mg PO DAILY ON LICENSE OF [facility] Last Admin: 06/26/24 08:47 Dose: 40 mg Fluphenazine HCl (Fluphenazine Hcl 5 Mg Tablet) 5 mg PO BID ON LICENSE OF [facility] Last Admin: 06/26/24 08:49 Dose: 5 mg Fluticasone/Umeclidinium/Vilanterol (Fluticasone/Umeclidinium/Vilanterol 200/62.5/25 Blst.W.Dev) 1 puff INHALE RDAILY ON LICENSE OF [facility] Last Admin: 06/26/24 09:12 Dose: 1 puff Haloperidol (Haloperidol 5 Mg Tablet) 5 mg PO BID ON LICENSE OF [facility] Last Admin: 06/26/24 08:47 Dose: 5 mg Hydroxyzine HCl (Hydroxyzine Hcl 25 Mg Tablet) 25 mg PO Q6H PRN PRN Reason: Anxiety Last Admin: 06/25/24 16:08 Dose: 25 mg Lorazepam (Lorazepam 0.5 Mg Tablet) 0.5 mg PO Q4H PRN PRN Reason: Anxiety Last Admin: 06/25/24 15:26 Dose: 0.5 mg Magnesium Hydroxide (Milk Of Magnesia 30 Ml Oral.Susp) 30 ml PO DAILY PRN PRN Reason: Constipation Metformin HCl (Metformin Hcl 500 Mg Tablet) 500 mg PO BIDWM ON LICENSE OF [facility] Last Admin: 06/26/24 08:48 Dose: 500 mg Mirtazapine (Mirtazapine 7.5 Mg Tablet) 7.5 mg PO BEDTIME ON LICENSE OF [facility] Last Admin: 06/25/24 20:53 Dose: 7.5 mg Montelukast Sodium (Montelukast Sodium 10 Mg Tablet) 10 mg PO DAILY ON LICENSE OF [facility] Last Admin: 06/26/24 08:47 Dose: 10 mg Naproxen (Naproxen 500 Mg Tablet) 500 mg PO BID ON LICENSE OF [facility] Last Admin: 06/26/24 08:48 Dose: 500 mg Nicotine (Nicotine 21 Mg Patch.Td24) 21 mg TRANSDERMA DAILY PRN PRN Reason: nicotine cravings Nicotine Polacrilex (Nicotine Polacrilex Lozenge 4 Mg Lozenge) 4 mg BUCCAL Q2H PRN PRN Reason: Nicotine Cravings Omeprazole (Omeprazole 20 Mg Capsule.Dr) 20 mg PO BID ON LICENSE OF [facility] Last Admin: 06/26/24 08:48 Dose: 20 mg Prazosin HCl (Prazosin Hcl 1 Mg Capsule) 2 mg PO BID YULY; Protocol Last Admin: 06/26/24 08:48 Dose: 2 mg Temazepam (Temazepam 15 Mg Capsule) 15 mg PO BEDTIME YULY Last Admin: 06/25/24 20:54 Dose: 15 mg Trazodone HCl (Trazodone Hcl 50 Mg Tablet) 50 mg PO BEDTIME MRX1 PRN PRN Reason: Insomnia Allergies Allergies Allergy/AdvReac Type Severity Reaction Status Date / Time azithromycin [AZITHROMYCIN] Allergy Severe Rash Verified 06/23/24 21:50 Fish Containing Products Allergy Severe Anaphylaxis Verified 06/23/24 21:50 codeine [Codeine] Allergy Intermediate Rash Verified 06/23/24 21:50 Penicillins Allergy Intermediate Rash Verified 06/23/24 21:50 prednisone [Prednisone] Allergy Intermediate Rash Verified 06/23/24 21:50 Sulfa (Sulfonamide Allergy Intermediate Rash Verified 06/23/24 21:50 Antibiotics) [Sulfa (Sulfonamides)] ziprasidone [From Geodon] Allergy Intermediate dysuria, Verified 06/23/24 21:50 rash lithium Allergy Rash Verified 06/23/24 21:50 Assessment & Plan Assessment & Plan (1) PTSD (post-traumatic stress disorder): Status: Acute Code(s): F43.10 - Post-traumatic stress disorder, unspecified (2) Borderline personality disorder: Status: Acute Code(s): F60.3 - Borderline personality disorder (3) Diabetes type 2, controlled: Status: Acute Code(s): E11.9 - Type 2 diabetes mellitus without complications (4) GERD (gastroesophageal reflux disease): Status: Acute Code(s): K21.9 - Gastro-esophageal reflux disease without esophagitis (5) Hyperlipidemia: Status: Acute Code(s): E78.5 - Hyperlipidemia, unspecified Plan Patient is a 48-year-old female with history of PTSD, depression, borderline personality disorder, auditory hallucinations who presents following worsening depression with AH and SI with plan to overdose on Tylenol. Patient says that for the past several weeks she has been overall okay until yesterday which she says for some reason she thinks she was just having a bad day. She can not identify any specific trigger but says AH was worse, urge to self-harm was worse and she did superficially cut herself for the 1st time in quite a while and she went and got a bottle of Tylenol intending to overdose. Instead she but the bottle back and told her staff who brought her to the emergency room, significant improvement from past SI struggles. Patient hopes that she will get stable soon so she can return to her [facility]; [facility] into a new [facility] for the past 2 months and says she likes it very much. Right now however she reports feeling continued urges to self-harm and is trying to sleep to avoid it. She asks for a one-to-one Formulation/clinical reasoning: Patient has a very long history of psychiatric admissions with very similar clinical presentation. Typically she stabilizes after few days, not requiring medication management and returns to her [facility]. Patient got a bottle of Tylenol but did not take it instead told staff which is significant improvement compared to past incidences. Other than intermittent AH, she denies any delusional thinking which have been present in the past. Will continue home medication regimen 06/26 Patient reports that she is doing much better and that her mood is good and of note, affect is noticeably brighter and patient appropriately interacting with peers and staff in the milieu, calm and able to enjoy interactions. Patient reports AH was intermittently present the past day but not today. She says and does not need a one-to-one with which specification writer agrees. She denies any urges of self-harm and feels that the dysregulation she had the day before his past. Patient is asking for discharge tomorrow. Business Development Professional and Team agrees she is back to baseline and her outpatient team agrees with discharge plan for tomorrow. Business Development Professional discussed elevated cholesterol which patient says she will talk about with her PCP. As mentioned patient is at baseline; she has an extensive outpatient support network well established and she is appropriate to return to her [facility] and the community for care. Patient will of course continue to struggle with emotional reactivity, SI and urges to self-harm; however this is chronic and been present for decades and will not resolve with longer inpatient stay; rather, this remains best treated in the outpatient setting, something with which Lucita agrees and remains engaged. She is not in imminent risk for harm to self or others and request for discharge honored. Plan: CV Q 15 Continue home medication regimen Patient educated on: diagnosis, medication risk/benefits and therapeutic strategies Informed Consent: understands Reason for continued inpatient stay Substantial Risk for: stable for discharge Time Spent With Patient Time: Total time managing care of this patient today ____ minutes.
[2024-06-26] MEDS: hydrOXYzine HCL 25 MG TABLET PO (16:49)
[2024-06-26] MEDS: Albuterol/Iprat 2.5/0.5MG 3 ML AMPUL.NEB INHALE (19:43)
[2024-06-26 19:44] VITALS: PULSE 113; RESP 18; O2SAT 95
[2024-06-26 19:52] VITALS: BP 158/99; PULSE 110; RESP 20; TEMP 36.6; O2SAT 95
[2024-06-26] MEDS: Mirtazapine 7.5 MG TABLET PO (20:36)
[2024-06-26] MEDS: traZODone HCL 50 MG TABLET PO (20:37)
[2024-06-26] MEDS: Temazepam 15 MG CAPSULE PO (20:37)
--- NOTE | 2024-06-26 22:03 | PM.PSYDC ---
DS: Providers Provider Date of Service: 06/27/24 Date of admission: 06/24/24 12:48 Date of discharge: 06/27/24 Primary care physician: Maribel Marquez NP Attending physician on admission: Jay Reed Attending physician on discharge: Jay Reed DS: Diagnosis Discharge Diagnosis (1) PTSD (post-traumatic stress disorder): Status: Acute (2) Borderline personality disorder: Status: Acute (3) Diabetes type 2, controlled: Status: Acute (4) GERD (gastroesophageal reflux disease): Status: Acute (5) Hyperlipidemia: Status: Acute DS: Medications Discharge Medications Home Medications: Home Medications ?Medication ?Instructions ?Recorded ?Confirmed albuterol sulfate 90 mcg/actuation 2 puff inhalation Q6H PRN Wheezing 06/24/24 06/24/24 aerosol inhaler amlodipine 5 mg tablet 5 mg PO DAILY 06/24/24 06/24/24 atorvastatin 10 mg tablet 10 mg PO DAILY 06/24/24 06/24/24 benztropine 1 mg tablet 1 mg PO BID 06/24/24 06/24/24 buspirone 10 mg tablet 10 mg PO BID 06/24/24 06/24/24 clozapine 100 mg tablet 100 mg PO DAILY 06/24/24 06/24/24 doxycycline hyclate 100 mg tablet 100 mg PO BID 06/24/24 06/24/24 fluoxetine 40 mg capsule 40 mg PO DAILY 06/24/24 06/24/24 fluphenazine HCl 5 mg tablet 5 mg PO BID 06/24/24 06/24/24 fluticasone fur. 200 mcg-umeclid 1 ea inhalation DAILY 06/24/24 06/24/24 62.5 mcg-vilant 25 mcg inhalat.powder (Trelegy Ellipta) haloperidol 5 mg tablet 5 mg PO BID 06/24/24 06/24/24 lorazepam 0.5 mg tablet 0.5 mg PO Q4H PRN Anxiety 06/24/24 06/24/24 metformin 500 mg tablet 500 mg PO BID 06/24/24 06/24/24 mirtazapine 7.5 mg tablet 7.5 mg PO BEDTIME 06/24/24 06/24/24 montelukast 10 mg tablet 10 mg PO DAILY 06/24/24 06/24/24 naproxen 500 mg tablet 500 mg PO BID 06/24/24 06/24/24 pantoprazole 20 mg tablet,delayed 20 mg PO BID 06/24/24 06/24/24 release prazosin 2 mg capsule 2 mg PO BID 06/24/24 06/24/24 zaleplon 5 mg capsule 5 mg PO BEDTIME 06/24/24 06/24/24 Mental Status Exam Mental Status Exam Narrative: Pt is alert and oriented; behavior is cooperative, friendly and calm; patient is not in distress; dressed in casual attire and adequately groomed; mood is described as good and affect congruent; eye contact appropriate; Speech is normal rate, volume and prosody and not pressured; no psychomotor agitation/retardation present; thought process is organized and goal directed; Thought content is on discharge; otherwise pertinent to relevant topics and without any delusional content, paranoid ideations or grandiosity; denies any SI/HI or urges to self-harm; denies any current AH and. There is no evidence of perceptual disturbance. Patients insight and judgment are intact, at baseline and adequate. Data Data Completed and Pending Completed studies during hospitalization [Text1]: 06/24/24 06/24/24 06/24/24 00:40 03:52 13:18 WBC 7.6 RBC 3.88 L Hgb 12.0 Hct 35.4 L MCV 91.2 MCH 30.9 MCHC 33.9 RDW 13.0 Plt Count 289 MPV 9.0 L Immature Gran % (Auto) 0.4 Neut % (Auto) 61.1 Lymph % (Auto) 25.1 [place] % (Auto) 8.8 Eos % (Auto) 4.2 H Baso % (Auto) 0.4 Lymph # (Auto) 1.9 [place] # (Auto) 0.7 Eos # (Auto) 0.3 Baso # (Auto) 0.0 Abs Immat Gran (auto) 0.03 Absolute Neuts (auto) 4.7 Absolute Nucleated RBC 0.000 Nucleated RBC % (auto) 0.0 Sodium 144 Potassium 3.6 Chloride 107 Carbon Dioxide 25 Anion Gap 16 BUN 12 Creatinine 0.81 Estim Creat Clear Calc 106.1 Estimated GFR > 60 Random Glucose 159 H Estimat Average Glucose Hemoglobin A1c % Calcium 9.2 Magnesium Triglycerides Cholesterol LDL Cholesterol, Calc HDL Cholesterol Vitamin B12 Folate TSH Free T4 Beta HCG, Quant < 2 Urine Color Yellow Urine Appearance Clear Urine pH 6.5 Ur Specific [place] 1.020 Urine Protein Negative Urine Glucose (UA) Negative Urine Ketones Negative Urine Blood Negative Urine Nitrite Negative Ur Leukocyte Esterase Negative Urine Opiates Screen Not Detected Ur Buprenorphine Scrn Not Detected Ur Oxycodone Screen Not Detected Urine Methadone Screen Not Detected Urine Fentanyl Screen Not Detected Ur Barbiturates Screen Not Detected Ur Phencyclidine Scrn Not Detected Ur Amphetamines Screen Not Detected U Benzodiazepines Scrn Not Detected Urine Cocaine Screen Not Detected U Marijuana (THC) Screen Not Detected Ethyl Alcohol < 10 06/25/24 08:56 WBC RBC Hgb Hct MCV MCH MCHC RDW Plt Count MPV Immature Gran % (Auto) Neut % (Auto) Lymph % (Auto) [place] % (Auto) Eos % (Auto) Baso % (Auto) Lymph # (Auto) [place] # (Auto) Eos # (Auto) Baso # (Auto) Abs Immat Gran (auto) Absolute Neuts (auto) Absolute Nucleated RBC Nucleated RBC % (auto) Sodium Potassium Chloride Carbon Dioxide Anion Gap BUN Creatinine Estim Creat Clear Calc Estimated GFR Random Glucose Estimat Average Glucose 131 Hemoglobin A1c % 6.2 H Calcium Magnesium 1.8 Triglycerides 283 H Cholesterol 205 H LDL Cholesterol, Calc 111 H HDL Cholesterol 38 L Vitamin B12 439 Folate 11.3 TSH 1.01 Free T4 0.73 Beta HCG, Quant Urine Color Urine Appearance Urine pH Ur Specific [place] Urine Protein Urine Glucose (UA) Urine Ketones Urine Blood Urine Nitrite Ur Leukocyte Esterase Urine Opiates Screen Ur Buprenorphine Scrn Ur Oxycodone Screen Urine Methadone Screen Urine Fentanyl Screen Ur Barbiturates Screen Ur Phencyclidine Scrn Ur Amphetamines Screen U Benzodiazepines Scrn Urine Cocaine Screen U Marijuana (THC) Screen Ethyl Alcohol DS: Summary Hospital Course Hospital Course: Patient is a 48-year-old female with history of PTSD, depression, borderline personality disorder, auditory hallucinations who presents following worsening depression with AH and SI with plan to overdose on Tylenol. Patient says that for the past several weeks she has been overall okay until yesterday which she says for some reason she thinks she was just having a bad day. She can not identify any specific trigger but says AH was worse, urge to self-harm was worse and she did superficially cut herself for the 1st time in quite a while and she went and got a bottle of Tylenol intending to overdose. Instead she but the bottle back and told her staff who brought her to the emergency room, significant improvement from past SI struggles. Patient hopes that she will get stable soon so she can return to her longterm; patient has moved into a new longterm for the past 2 months and says she likes it very much. Right now however she reports feeling continued urges to self-harm and is trying to sleep to avoid it. She asks for a one-to-one Hospital course/Formulation/clinical reasoning: On admission, patient reported that she was starting to feel better though still had urges to self-harm and was sleeping to avoid superficial cutting. She asked for one-to-one. At past admissions, staff has worked hard to help her avoid being on a one-to-one so that she can continue practicing coping skills to keep herself safe; however, copy writer agreed to one-to-one for short period of time, with which patient agreed and said would work hard to get off of. Patient has a very long history of psychiatric admissions with very similar clinical presentation. As in past admissions, patient quickly stabilized and did not require medication management. Despite her long history of SI and hospital visits, this time patient did not try to ingest the Tylenol bottle but instead told staff which is significant improvement compared to past incidences. Other than intermittent AH, she denies any delusional thinking which have been present in the past. Patient's home medication regimen was continued. The following day patient was able to come off one-to-one. She reports that she is doing much better and that her mood is good and of note, affect is noticeably brighter and patient appropriately interacting with peers and staff in the milieu, calm and able to enjoy interactions. Patient reports AH was intermittently present the past day but not today. She says she no longer needs to be on a one-to-one and patient remained in good behavioral and impulse control on Q 15's. Patient asked for discharge the next day saying she felt ready to go home. She denied any urges of self-harm and feels that the dysregulation prompting this admission had resolved. Ore Dressing Engineer and Team agrees she is back to baseline and her outpatient team agrees with discharge plan for tomorrow. Ore Dressing Engineer discussed elevated cholesterol which patient says she will talk about with her PCP. As mentioned patient is at baseline; she has an extensive outpatient support network well established and she is appropriate to return to her longterm and the community for care. Patient will of course continue to struggle with emotional reactivity, SI and urges to self-harm; however this is chronic and been present for decades and will not resolve with longer inpatient stay; rather, this remains best treated in the outpatient setting, something with which Lucita agrees and remains engaged. She is not in imminent risk for harm to self or others and request for discharge honored. Time spent discussing smoking cessation with patient: 3 to 10 minutes Status at Discharge Functional status at discharge: independent ambulation Overall status at discharge: patient is back to baseline Time Spent with Patient Time attestation: Total time managing care of this patient today __40__ minutes. Time spent: Greater than 30 minutes Specific discharge activities: Met with patient; discussed with team; prescriptions, charting Discharge Plan Discharge Anticipated Discharge Date/Time: 06/27/24 11:30 Patient Disposition: Home, Self-Care Discharge Diagnosis: PTSD Referrals: [facility] with Dylan Gaspar [Other] - 07/29/24 11:20 am Maribel Marquez NP [Primary Care Provider] - 1 Week (office will reach out to pt. with f/u appointment.) Discharge Medications: New famotidine 20 mg Tablet 20 mg PO TIDWM PRN (Reason: GERD) 30 Days Qty: 90 0RF Continued fluoxetine 40 mg capsule 40 mg PO DAILY metformin 500 mg tablet 500 mg PO BID haloperidol 5 mg tablet 5 mg PO BID atorvastatin 10 mg tablet 10 mg PO DAILY clozapine 100 mg tablet 100 mg PO DAILY amlodipine 5 mg tablet 5 mg PO DAILY pantoprazole 20 mg tablet,delayed release (DR/EC) 20 mg PO BID lorazepam 0.5 mg tablet 0.5 mg PO Q4H PRN (Reason: Anxiety) buspirone 10 mg tablet 10 mg PO BID benztropine 1 mg tablet 1 mg PO BID montelukast 10 mg tablet 10 mg PO DAILY zaleplon 5 mg capsule 5 mg PO BEDTIME albuterol sulfate 90 mcg/actuation HFA aerosol inhaler 2 puff inhalation Q6H PRN (Reason: Wheezing) fluphenazine HCl 5 mg tablet 5 mg PO BID prazosin 2 mg capsule 2 mg PO BID naproxen 500 mg tablet 500 mg PO BID mirtazapine 7.5 mg tablet 7.5 mg PO BEDTIME Trelegy Ellipta 200-62.5-25 mcg blister with device 1 ea inhalation DAILY Discontinued doxycycline hyclate 100 mg tablet 100 mg PO BID Discharge Orders: Discharge Order (Routine); Ordered 06/27/24 Ordered By: Jay Reed Diet: Diabetic diet Activity on Discharge: As tolerated Stand Alone Forms: Patient Portal Discharge page, Community Support Print Language: Swedish Care Plan Goals: Maintain mood and safe behaviors Take medications as prescribed Practice coping skills Continue with outpatient providers and reach out to them as needed Health Concerns: Mood stability and behaviors Asthma Elevated Cholesterol Diabetes Plan of Treatment: Follow up with your PCP, psychiatric provider and other outpatient providers regarding above concerns Take medications as prescribed Assessment: Risk assessment at time of discharge:? Patient was interviewed prior to discharge and found to be fully oriented and without any SI or HI. Patient has improved insight and judgment and wants to continue treatment. Patient is not in imminent risk of harm to self or others and has a safety plan that includes presenting to the closest ER or calling 911 if feeling unsafe.? Patient has been observed closely by nursing and unit staff throughout admission; patient has not engaged in any behaviors that suggest dangerousness to self or others and has demonstrated appropriate behaviors and impulse control
[2024-06-27 08:31] VITALS: BP 126/89; PULSE 96; RESP 18; TEMP 36.4; O2SAT 99
[2024-06-27] MEDS: Montelukast Sodium 10 MG TABLET PO (08:34)
[2024-06-27] MEDS: Fluticasone/Umeclidinium/Vilanterol 200/62.5/25 BLST.W.DEV 1 PUFF INHALE (08:34)
[2024-06-27] MEDS: Omeprazole 20 MG CAPSULE.DR PO (08:34)
[2024-06-27] MEDS: metFORMIN HCl 500 MG TABLET PO (08:35)
[2024-06-27] MEDS: Famotidine 20 MG TABLET PO (08:35)
[2024-06-27] MEDS: HaloperidoL 5 MG TABLET PO (09:13)
[2024-06-27] MEDS: amLODIPine Besylate 5 MG TABLET PO (09:13)
[2024-06-27] MEDS: fluPHENAZine HCl 5 MG TABLET PO (09:13)
[2024-06-27] MEDS: NaPROXEN 500 MG TABLET PO (09:13)
[2024-06-27] MEDS: Atorvastatin Calcium 10 MG TABLET PO (09:13)
[2024-06-27] MEDS: Doxycycline Monohydrate 100 MG CAPSULE PO (09:13)
[2024-06-27] MEDS: FLUoxetine HCl 20 MG CAPSULE 40 MG PO (09:13)
[2024-06-27] MEDS: Prazosin HCL 1 MG CAPSULE 2 MG PO (09:13)
[2024-06-27] MEDS: busPIRone HCl 10 MG TABLET PO (09:14)
[2024-06-27] MEDS: cloZAPine 100 MG TABLET PO (09:14)
[2024-06-27] MEDS: Benztropine Mesylate 1 MG TABLET PO (09:14)
== END 2024-06-27 10:35 | disposition home or self-care (01) | DRG 883 ==
LOC: HO.ED 06-24 13:07 → HO.PM5 06-24 13:09
PROVIDERS: Admitting Provider Clinical Nurse Specialist Psychiatric/Mental Health, Adult; Emergency Provider Emergency Medicine; PCP Nurse Practitioner Family; Visit Provider Clinical Nurse Specialist Psychiatric/Mental Health, Adult
DX: F60.3 Borderline personality disorder (principal); R45.851 Suicidal ideations; F43.10 Post-traumatic stress disorder, unspecified; F17.210 Nicotine dependence, cigarettes, uncomplicated; E11.9 Type 2 diabetes mellitus without complications; K21.9 Gastro-esophageal reflux disease without esophagitis; E78.5 Hyperlipidemia, unspecified; Z91.51 Personal history of suicidal behavior; Z71.6 Tobacco abuse counseling; Z79.84 Long term (current) use of oral hypoglycemic drugs; Z79.899 Other long term (current) drug therapy
CPT/HCPCS: 36415; 80048; 80061; 80307; 81003; 82607; 82746; 83036; 83735; 84439; 84443; 84702; 85025; 94640; 99285; S9485

== ENCOUNTER → 2024-06-24 12:48 | Outpatient (BNV) | payer MEDICARE, MEDICAID, SELFPAY | PROVIDERS: Admitting Provider Clinical Nurse Specialist Psychiatric/Mental Health, Adult; Emergency Provider Emergency Medicine; PCP Nurse Practitioner Family; Visit Provider Psychiatry & Neurology Psychiatry | DX: F60.3 Borderline personality disorder (principal); F43.11 Post-traumatic stress disorder, acute; E11.9 Type 2 diabetes mellitus without complications; K21.9 Gastro-esophageal reflux disease without esophagitis; E78.5 Hyperlipidemia, unspecified | CPT/HCPCS: 90792; 99232; 99239 ==

== ENCOUNTER 2024-06-28 23:04 | Emergency (ER) | payer MEDICARE, MEDICAID, SELFPAY ==
--- NOTE | ~2024-06-28 | CT_ITS ---
EXAMINATION: CT ABDOMEN AND PELVIS WITHOUT CONTRAST CLINICAL INFORMATION: Abdominal pain COMPARISON: 10/13/2023 TECHNIQUE: Multidetector volumetric imaging was performed from the superior aspect of the liver through the pubic symphysis. Sagittal and coronal reformatted images were obtained on the technologist's workstation. This CT examination was performed using dose optimization techniques as appropriate, variously including the following: *Automated exposure control *Adjustment of mA and/or kV according to patient size (this includes techniques or standardized protocols for targeted exams where dose is matched to indication/reason for exam; i.e. extremities or head) *Use of iterative reconstruction technique DLP: 1143 mGy-cm FINDINGS: LUNG BASES: Region of mild groundglass opacity in the right lower lobe suggests nonspecific inflammation. Small pleural effusions are redemonstrated. Trace pericardial effusion also again noted. LIVER, GALLBLADDER, AND BILIARY TREE: The liver is normal in size, shape, and attenuation. No focal hepatic lesion or biliary ductal dilatation is identified on this noncontrast exam. Gallbladder appears partially contracted, suboptimally assessed. PANCREAS: Unremarkable. SPLEEN: Unremarkable. ADRENAL GLANDS: Unremarkable. KIDNEYS AND URETERS: No hydronephrosis or obstructing calculus bilaterally. BLADDER: Mildly distended and grossly unremarkable. GASTROINTESTINAL TRACT: Small bowel is unremarkable. Moderate to large amount of stool is present throughout the colon. No significant bowel wall thickening is seen. The appendix is unremarkable. No free fluid or free air is seen. ABDOMINAL WALL: No significant hernia is appreciated. LYMPH NODES: Normal. VASCULAR: Unremarkable. PELVIC VISCERA: An approximately 1.5 cm fat density structure is redemonstrated in the right adnexa, most consistent with a dermoid cyst. OSSEOUS STRUCTURES: Scattered endplate osteophytes in the spine. CT/CT abdomen pelvis wo IV con IMPRESSION: 1. No acute findings identified in the abdomen/pelvis. Moderate to large volume of stool. 2. Small pleural effusions and trace pericardial effusion, similar to prior. 3. Region of mild pulmonary groundglass opacity in the right lower lobe suggests nonspecific inflammation. Electronically signed by: Ron Negron MD 06/29/2024 03:28 AM EDT
[2024-06-28 23:20] VITALS: BP 151/84; PULSE 127; RESP 18; TEMP 35.8; O2SAT 94
[2024-06-28 23:26] VITALS: BP 122/86; BP 151/84; PULSE 127; PULSE 87; RESP 18; TEMP 35.8; O2SAT 94; O2SAT 97; BMI 42.2
[2024-06-28 23:40] VITALS: TEMP 36.8
--- NOTE | 2024-06-28 23:41 | ED_ITS ---
HPI - General Adult General Chief complaint: Nausea/Vomiting/Diarrhea Stated complaint: nausea,dizzy,vomiting Time Seen by Provider: 06/28/24 23:22 Source: patient and EMS Mode of arrival: EMS Limitations: no limitations History of Present Illness ED Provider: Rach KIRBY narrative: 48 year old female hx of PTSD, Tylenol overdoses, hyperlipidemia, diabetes, depression, borderline personality disorder presents to the ED for nausea, vomiting X 5, abd pain since this morning. Reports shes not feeling well at all. She is tired, her body hurts and she feels low energy. Hasn't been eating or drinking due to nausea and vomiting. Denies cp, sob, fevers, chills, hematemesis, melena, hematochezia. Related Data Home Medications ?Medication ?Instructions ?Recorded ?Confirmed albuterol sulfate 90 mcg/actuation 2 puff inhalation Q6H PRN Wheezing 06/24/24 06/24/24 aerosol inhaler amlodipine 5 mg tablet 5 mg PO DAILY 06/24/24 06/24/24 atorvastatin 10 mg tablet 10 mg PO DAILY 06/24/24 06/24/24 benztropine 1 mg tablet 1 mg PO BID 06/24/24 06/24/24 buspirone 10 mg tablet 10 mg PO BID 06/24/24 06/24/24 clozapine 100 mg tablet 100 mg PO DAILY 06/24/24 06/24/24 fluoxetine 40 mg capsule 40 mg PO DAILY 06/24/24 06/24/24 fluphenazine HCl 5 mg tablet 5 mg PO BID 06/24/24 06/24/24 fluticasone fur. 200 mcg-umeclid 1 ea inhalation DAILY 06/24/24 06/24/24 62.5 mcg-vilant 25 mcg inhalat.powder (Trelegy Ellipta) haloperidol 5 mg tablet 5 mg PO BID 06/24/24 06/24/24 lorazepam 0.5 mg tablet 0.5 mg PO Q4H PRN Anxiety 06/24/24 06/24/24 metformin 500 mg tablet 500 mg PO BID 06/24/24 06/24/24 mirtazapine 7.5 mg tablet 7.5 mg PO BEDTIME 06/24/24 06/24/24 montelukast 10 mg tablet 10 mg PO DAILY 06/24/24 06/24/24 naproxen 500 mg tablet 500 mg PO BID 06/24/24 06/24/24 pantoprazole 20 mg tablet,delayed 20 mg PO BID 06/24/24 06/24/24 release prazosin 2 mg capsule 2 mg PO BID 06/24/24 06/24/24 zaleplon 5 mg capsule 5 mg PO BEDTIME 06/24/24 06/24/24 Previous Rx's ?Medication ?Instructions ?Recorded famotidine 20 mg tablet 20 mg PO TIDWM PRN GERD 30 days 06/27/24 #90 tabs ondansetron HCl 4 mg tablet 4 mg PO Q8H PRN nausea and 06/29/24 vomiting #14 tabs Allergies Allergy/AdvReac Type Severity Reaction Status Date / Time azithromycin [AZITHROMYCIN] Allergy Severe Rash Verified 06/28/24 23:27 Fish Containing Products Allergy Severe Anaphylaxis Verified 06/28/24 23:27 codeine [Codeine] Allergy Intermediate Rash Verified 06/28/24 23:27 Penicillins Allergy Intermediate Rash Verified 06/28/24 23:27 prednisone [Prednisone] Allergy Intermediate Rash Verified 06/28/24 23:27 Sulfa (Sulfonamide Allergy Intermediate Rash Verified 06/28/24 23:27 Antibiotics) [Sulfa (Sulfonamides)] ziprasidone [From Geodon] Allergy Intermediate dysuria, Verified 06/28/24 23:27 rash lithium Allergy Rash Verified 06/28/24 23:27 Review of Systems 2 Review of Systems: Yes all other systems are reviewed and are negative PMFSH Past Medical History Attestation statement: The following information was validated with the patient. Source: old records reviewed and nursing notes reviewed Medical History Asthma Suicidal ideation MDD (major depressive disorder), recurrent episode, severe Chest pain Acute anxiety COVID-19 Full body hives Major depression Dizziness Suicide attempt UTI (urinary tract infection) Acetaminophen overdose COVID History of attempted suicide History of non-suicidal self-harm Hypomagnesemia Suicide attempt Suicide attempt by acetaminophen overdose Acetaminophen overdose Depression Diabetes type 2, controlled Borderline personality disorder PTSD (post-traumatic stress disorder) Overdose GERD (gastroesophageal reflux disease) Mood disorder Hyperlipidemia Bronchitis Social History Social History Household Members: Other Household Members Other:: longterm Housing: Other Housing Other:: longterm [facility] Do you presently have visiting nurse or other home services: No Unable to assess alcohol history related to: Unknown Alcohol intake: never Comment: sitter in room Patient Tobacco Use Status: Current everyday Tobacco user Tobacco use type: Cigarette Cigarette Packs Per Day: 1 Cigarettes Per Day: 20.0 Years Smoked: 22 e-Cigarette/Vaping Use: Currently Using Second Hand Smoke Exposure: No Substance Use Type: Caffiene Advance Directives: No Advance Directives Information Provided: No Do you have a plan to hurt others: No Plan service: No Current occupational status: unemployed and disabled Sexual orientation: Straight/Heterosexual Physical Exam ED Vital Signs: Vital Signs - 24 hr 06/28/24 23:20 06/28/24 23:26 06/28/24 23:40 Temperature 96.4 F L 96.4 F L 98.2 F Pulse Rate 127 H 127 H Respiratory Rate 18 18 Blood Pressure 151/84 H 151/84 H Pulse Oximetry 94 94 Oxygen Delivery Method Room Air Room Air BMI result Body Mass Index 42.2 vss Appearance: Alert.? Oriented X3.? No acute distress.? Head: Normocephalic, atraumatic, no step-offs or deformities Eyes: Pupils equal, round and reactive to light.?.? CVS: Normal heart rate and rhythm.? Pulses normal.? Respiratory: No respiratory distress.? Breath sounds normal.? Abdomen: Soft and nontender.? Skin: Skin warm and dry.? Normal skin color.? Normal skin turgor.? Extremities: No lower extremity edema.? No calf ttp. 5/5 strength to bilateral upper and lower extremities Neuro: Oriented X 3.? No motor deficit.? No sensory deficit. CN 2-12 intact Course Reevaluation(s) Reevaluation #1: CBC unremarkable. Chemistry no acute findings needing intervention. Normal lipase. UA with no infection. Urine negative. Flu, COVID, RSV negative. Time: 00:53 Reevaluation #2: Imaging pending sign out to Dr. Ruano Time: 01:36 Medications Administered Discontinued Medications Generic Name Dose Route Start Last Admin Trade Name Freq PRN Reason Stop Dose Admin Sodium Chloride 1,000 mls @ 999 mls/hr 06/28/24 23:30 06/29/24 00:09 Ns IV 06/29/24 00:30 999 mls/hr .Q1H1M YULY Administration Ondansetron HCl 4 mg 06/28/24 23:22 06/29/24 00:09 Ondansetron Hcl 4 Mg/2 Ml Vial IVPUSH 06/28/24 23:23 4 mg ONCE ONE Administration Medical Decision Making Medical Decision Making [facility] Narrative: 48-year-old female presents with nausea, vomiting, started this morning has vomited 5 times. No sick contacts. Physical exam benign History and physical exam concerning for viral illness. Unlikely acute abdomen, appendicitis, cholecystitis, diverticulitis, obstruction, pancreatitis. Will rule out metabolic derangements, urinary infection Plan labs, imaging, urine Differential Diagnosis Differential Diagnoses: The differential diagnosis associated with the presentation includes History and physical exam concerning for viral illness. Unlikely acute abdomen, appendicitis, cholecystitis, diverticulitis, obstruction, pancreatitis. Will rule out metabolic derangements, urinary infection Admission/Observation Consideration of admission/observation: Escalation of care including admission/observation considered Lab Data [facility] Lab Attestation statement: I reviewed the patient's lab results. 06/29/24 00:19 06/29/24 00:19 Labs: Lab Results 06/28/24 06/29/24 06/29/24 Range/Units 23:46 00:15 00:19 WBC 7.6 (4.8-10.8) X10*3/uL RBC 3.85 L (4.20-5.50) X10*6/uL Hgb 12.1 (12.0-16.0) g/dl Hct 35.3 L (37.0-47.0) % MCV 91.7 (80.0-98.0) fL MCH 31.4 (27.0-33.0) pg MCHC 34.3 (31.0-35.0) g/dl RDW 12.7 (11.0-16.0) % Plt Count 271 (160-400) X10*3/uL MPV 8.8 L (9.4-12.3) fL Immature Gran % (Auto) 0.8 H (0.0-0.4) % Neut % (Auto) 60.3 (45-73) % Lymph % (Auto) 22.9 (20-40) % [place] % (Auto) 9.7 (2-11) % Eos % (Auto) 5.8 H (0-4) % Baso % (Auto) 0.5 (0-2) % Lymph # (Auto) 1.7 (1.2-4.9) X10*3/uL [place] # (Auto) 0.7 (0.1-1.2) X10*3/uL Eos # (Auto) 0.4 (0.0-0.4) X10*3/uL Baso # (Auto) 0.0 (0.0-0.2) X10*3/uL Abs Immat Gran (auto) 0.06 H (0.00-0.03) X10*3/uL Absolute Neuts (auto) 4.6 (2.0-8.3) x10*3/uL Absolute Nucleated RBC 0.000 (0.0-0.012) X10*3/uL Nucleated RBC % (auto) 0.0 (0.0-0.2) /100WBC Sodium 142 (135-145) mmol/L Potassium 3.6 (3.3-5.1) mmol/L Chloride 108 (96-108) mmol/L Carbon Dioxide 22 (22-29) mmol/L Anion Gap 18 (12-20) BUN 15 (9-16) mg/dL Creatinine 0.85 (0.5-1.4) mg/dL Estim Creat Clear Calc 101.1 Estimated GFR > 60 Random Glucose 166 H (60-115) mg/dL Calcium 8.7 (8.4-10.2) mg/dL Magnesium 1.6 (1.6-2.6) mg/dL Total Bilirubin 0.2 (0.0-1.0) mg/dL AST 16 (5-31) U/L ALT 17 (0-31) U/L Alkaline Phosphatase 140 H (39-117) U/L Total Protein 6.4 L (6.5-8.0) g/dL Albumin 3.9 (3.5-5.0) g/dL Lipase 14 (8-78) U/L Urine Color Yellow Urine Appearance Clear Urine pH 6.0 (5.0-9.0) Ur Specific [place] 1.015 (1.005-1.025) Urine Protein Negative (Neg-Trace) mg/dL Urine Glucose (UA) Negative (Negative) mg/dL Urine Ketones Negative (Negative) mg/dL Urine Blood Negative (Negative) Urine Nitrite Negative (Negative) Ur Leukocyte Esterase Negative (Negative) Urine Test NEGATIVE (NEGATIVE) Influenza Type A (PCR) NEGATIVE (Negative) Influenza Type B (PCR) NEGATIVE (Negative) RSV RNA Qual (PCR) NEGATIVE (Negative) SARS-CoV-2 RNA (RT-PCR) NEGATIVE (Negative) Independent Interpretation I performed an independent interpretation of an: CT Scan Radiology Impression Discussion of test interpretation with radiology: I have reviewed the radiologist's reading. Independent Historian Clinical information obtained from an independent historian. History obtained from or confirmed by: EMS External Record Review External record reviewed: Inpatient record, Office record, Outpatient record, Prior outpatient labs, Prior outpatient radiology, Primary care record and Outside ED record Chronic Conditions Patient?s care impacted by: Other (see hpi ) Critical Care Time Critical Care Time Critical Care Time: No Discharge Plan Discharge Clinical Impression: Abdominal pain, Nausea & vomiting Patient Disposition: Home, Self-Care Instructions: Acute Nausea and Vomiting (ED), Abdominal Pain (ED) Additional Instructions: Take your medications as prescribed. If you were prescribed antibiotics today, it is important that you take your medication to their entirety, do not skip any doses, do not finish them early. Follow-up with your primary care provider this week. Return to the emergency department with new or worsening symptoms. Such as fevers, chills, chest pain, shortness of breath, nausea, vomiting, dizziness, headache, vision changes, lethargy In case of emergency call 911 Prescriptions: New ondansetron HCl 4 mg tablet 4 mg PO Q8H PRN (Reason: nausea and vomiting) Qty: 14 0RF No Action fluoxetine 40 mg capsule 40 mg PO DAILY metformin 500 mg tablet 500 mg PO BID haloperidol 5 mg tablet 5 mg PO BID atorvastatin 10 mg tablet 10 mg PO DAILY clozapine 100 mg tablet 100 mg PO DAILY amlodipine 5 mg tablet 5 mg PO DAILY pantoprazole 20 mg tablet,delayed release (DR/EC) 20 mg PO BID lorazepam 0.5 mg tablet 0.5 mg PO Q4H PRN (Reason: Anxiety) buspirone 10 mg tablet 10 mg PO BID benztropine 1 mg tablet 1 mg PO BID montelukast 10 mg tablet 10 mg PO DAILY zaleplon 5 mg capsule 5 mg PO BEDTIME albuterol sulfate 90 mcg/actuation HFA aerosol inhaler 2 puff inhalation Q6H PRN (Reason: Wheezing) fluphenazine HCl 5 mg tablet 5 mg PO BID prazosin 2 mg capsule 2 mg PO BID naproxen 500 mg tablet 500 mg PO BID mirtazapine 7.5 mg tablet 7.5 mg PO BEDTIME Trelegy Ellipta 200-62.5-25 mcg blister with device 1 ea inhalation DAILY famotidine 20 mg Tablet 20 mg PO TIDWM PRN (Reason: GERD) 30 Days Qty: 90 0RF Referrals: Maribel Marquez NP [Primary Care Provider] - 2 days Print Language: Georgian
[2024-06-29] MEDS: 0.9 % Sodium Chloride 1,000 ML 999 ML IV (00:09)
[2024-06-29] MEDS: ondansetron HCL 4 MG/2 ML VIAL IVPUSH (00:09)
[2024-06-29 00:26] LABS: Basophils Percent Auto 0.5 % (0-2); Eosinophils Absolute Auto 0.4 X10*3/uL (0.0-0.4); Eosinophils Percent Auto 5.8 % (0-4); Hematocrit 35.3 % (37.0-47.0); Hemoglobin 12.1 g/dl (12.0-16.0); Imm Gran Abs Auto 0.06 X10*3/uL (0.00-0.03); Imm Gran Pct Auto 0.8 % (0.0-0.4); Lymphocytes Absolute Auto 1.7 X10*3/uL (1.2-4.9); Lymphocytes Percent Auto 22.9 % (20-40); Mean Corpuscular HGB Conc 34.3 g/dl (31.0-35.0); Mean Corpuscular Hemoglobin 31.4 pg (27.0-33.0); Mean Corpuscular Volume 91.7 fL (80.0-98.0); Mean Platelet Volume 8.8 fL (9.4-12.3); Monocytes Absolute Auto 0.7 X10*3/uL (0.1-1.2); Monocytes Percent Auto 9.7 % (2-11); Neutrophils Absolute Auto 4.6 x10*3/uL (2.0-8.3); Neutrophils Percent Auto 60.3 % (45-73); Platelet Count 271 X10*3/uL (160-400); Red Blood Count 3.85 X10*6/uL (4.20-5.50); Red Cell Distribution Width 12.7 % (11.0-16.0); White Blood Count 7.6 X10*3/uL (4.8-10.8)
[2024-06-29 00:28] LABS: Influenza A PCR NEGATIVE (Negative); Influenza B PCR NEGATIVE (Negative); Resp Syncy Virus RNA Qual PCR NEGATIVE (Negative); SARS COV2 PCR INHOUSE NEGATIVE (Negative)
[2024-06-29 00:29] LABS: Appearance Urine Clear; Color Urine Yellow; Glucose Urine UA Negative (Negative); Leukocyte Esterase Urine Negative (Negative); Nitrite Urine Negative (Negative); Specific Gravity - Urine 1.015 (1.005-1.025); Urine Blood Negative (Negative); Urine Ketones Negative (Negative); Urine Protein Negative (Neg-Trace)
[2024-06-29 00:42] LABS: UPreg QC Valid YES; Urine Pregnancy NEGATIVE (NEGATIVE)
[2024-06-29 00:45] LABS: Alanine Aminotransferase 17 U/L (0-31); Albumin Level 3.9 g/dL (3.5-5.0); Alkaline Phosphatase 140 U/L (39-117); Anion Gap 18 (12-20); Aspartate Amino Transferase 16 U/L (5-31); Bilirubin Total 0.2 mg/dL (0.0-1.0); Blood Urea Nitrogen 15 mg/dL (9-16); Calcium 8.7 mg/dL (8.4-10.2); Carbon Dioxide 22 mmol/L (22-29); Chloride 108 mmol/L (96-108); Creatinine Clr Calc Pharmacy 101.1; Estimated Glomerular Filt Rate > 60; Glucose Random 166 mg/dL (60-115); Lipase 14 U/L (8-78); Magnesium 1.6 mg/dL (1.6-2.6); Potassium 3.6 mmol/L (3.3-5.1); Sodium 142 mmol/L (135-145); Total Protein 6.4 g/dL (6.5-8.0)
--- NOTE | 2024-06-29 05:28 | PC.NURSE ---
this RN attempted to contact [facility] for ride, [facility] reports they are attempting to send a ride for the pt at this time.
[2024-06-29 06:11] VITALS: BP 149/76; PULSE 96; RESP 17; TEMP 37; O2SAT 95
[2024-06-29 06:43] VITALS: BP 149/76; PULSE 96; RESP 17; TEMP 37; O2SAT 95
== END 2024-06-29 06:11 | disposition home or self-care (01) ==
PROVIDERS: Physician Assistant; Emergency Provider Emergency Medicine Emergency Medical Services; PCP Nurse Practitioner Family
DX: R11.2 Nausea with vomiting, unspecified (principal); R10.9 Unspecified abdominal pain; Z03.818 Encounter for observation for suspected exposure to other biological agents ruled out; E11.9 Type 2 diabetes mellitus without complications; E78.5 Hyperlipidemia, unspecified; J45.909 Unspecified asthma, uncomplicated; Z79.02 Long term (current) use of antithrombotics/antiplatelets; Z79.84 Long term (current) use of oral hypoglycemic drugs; Z79.899 Other long term (current) drug therapy
CPT/HCPCS: 0241U; 74176; 80053; 81003; 81025; 83690; 83735; 85025; 96361; 96374; 99284; J2405

== ENCOUNTER 2024-07-01 13:23 | Outpatient (REF) | payer MEDICARE, MEDICAID, SELFPAY ==
[2024-07-01 13:34] LABS: MANUAL DIFF FLAG NO
[2024-07-01 13:56] LABS: Basophils Absolute Auto 0.1 X10*3/uL (0.0-0.2); Basophils Percent Auto 0.6 % (0-2); Eosinophils Absolute Auto 0.4 X10*3/uL (0.0-0.4); Eosinophils Percent Auto 5.2 % (0-4); Hemoglobin 13.6 g/dl (12.0-16.0); Imm Gran Abs Auto 0.06 X10*3/uL (0.00-0.03); Imm Gran Pct Auto 0.7 % (0.0-0.4); Lymphocytes Absolute Auto 1.4 X10*3/uL (1.2-4.9); Lymphocytes Percent Auto 16.9 % (20-40); Mean Corpuscular Hemoglobin 31.5 pg (27.0-33.0); Mean Corpuscular Volume 92.6 fL (80.0-98.0); Mean Platelet Volume 9.2 fL (9.4-12.3); Monocytes Absolute Auto 0.7 X10*3/uL (0.1-1.2); Monocytes Percent Auto 7.9 % (2-11); Neutrophils Absolute Auto 5.8 x10*3/uL (2.0-8.3); Neutrophils Percent Auto 68.7 % (45-73); Platelet Count 301 X10*3/uL (160-400); Red Blood Count 4.32 X10*6/uL (4.20-5.50); Red Cell Distribution Width 12.4 % (11.0-16.0); White Blood Count 8.4 X10*3/uL (4.8-10.8)
== END 2024-07-01 13:24 | disposition home or self-care (01) ==
LOC: HO.LABR 13:23
PROVIDERS: PCP Nurse Practitioner Family; Visit Provider Psychiatry & Neurology Psychiatry
DX: Z79.899 Other long term (current) drug therapy (principal)
CPT/HCPCS: 36415; 85025

== ENCOUNTER 2024-07-02 23:46 | Emergency (ER) | payer MEDICARE, MEDICAID, SELFPAY ==
[2024-07-03 00:10] VITALS: BP 150/92; PULSE 116; RESP 20; TEMP 36.7; O2SAT 95
[2024-07-03 00:20] VITALS: BP 150/92; PULSE 116; RESP 20; TEMP 36.7; O2SAT 95; BMI 40.9
--- NOTE | 2024-07-03 00:22 | ED.PSYCH ---
HPI - Psych General Stated Complaint: SI w/ plan Time Seen by Provider: 07/02/24 23:50 Source: patient and EMS Mode of arrival: EMS Limitations: no limitations History of Present Illness ED Provider: Dr. Eileen Ryan HPI Narrative: patient comes to the emergency room complaining of suicidal ideation. According to the patient, she is hearing voices telling her to and to not take her medications. Patient states that prior to arrival she did not hurt herself in any way. Related Data Home Medications ?Medication ?Instructions ?Recorded ?Confirmed albuterol sulfate 90 mcg/actuation 2 puff inhalation Q6H PRN Wheezing 06/24/24 06/24/24 aerosol inhaler amlodipine 5 mg tablet 5 mg PO DAILY 06/24/24 06/24/24 atorvastatin 10 mg tablet 10 mg PO DAILY 06/24/24 06/24/24 benztropine 1 mg tablet 1 mg PO BID 06/24/24 06/24/24 buspirone 10 mg tablet 10 mg PO BID 06/24/24 06/24/24 clozapine 100 mg tablet 100 mg PO DAILY 06/24/24 06/24/24 fluoxetine 40 mg capsule 40 mg PO DAILY 06/24/24 06/24/24 fluphenazine HCl 5 mg tablet 5 mg PO BID 06/24/24 06/24/24 fluticasone fur. 200 mcg-umeclid 1 ea inhalation DAILY 06/24/24 06/24/24 62.5 mcg-vilant 25 mcg inhalat.powder (Trelegy Ellipta) haloperidol 5 mg tablet 5 mg PO BID 06/24/24 06/24/24 lorazepam 0.5 mg tablet 0.5 mg PO Q4H PRN Anxiety 06/24/24 06/24/24 metformin 500 mg tablet 500 mg PO BID 06/24/24 06/24/24 mirtazapine 7.5 mg tablet 7.5 mg PO BEDTIME 06/24/24 06/24/24 montelukast 10 mg tablet 10 mg PO DAILY 06/24/24 06/24/24 naproxen 500 mg tablet 500 mg PO BID 06/24/24 06/24/24 pantoprazole 20 mg tablet,delayed 20 mg PO BID 06/24/24 06/24/24 release prazosin 2 mg capsule 2 mg PO BID 06/24/24 06/24/24 zaleplon 5 mg capsule 5 mg PO BEDTIME 06/24/24 06/24/24 Previous Rx's ?Medication ?Instructions ?Recorded famotidine 20 mg tablet 20 mg PO TIDWM PRN GERD 30 days 06/27/24 #90 tabs ondansetron HCl 4 mg tablet 4 mg PO Q8H PRN nausea and 06/29/24 vomiting #14 tabs Allergies Allergy/AdvReac Type Severity Reaction Status Date / Time azithromycin [AZITHROMYCIN] Allergy Severe Rash Verified 07/03/24 00:22 Fish Containing Products Allergy Severe Anaphylaxis Verified 07/03/24 00:22 codeine [Codeine] Allergy Intermediate Rash Verified 07/03/24 00:22 Penicillins Allergy Intermediate Rash Verified 07/03/24 00:22 prednisone [Prednisone] Allergy Intermediate Rash Verified 07/03/24 00:22 Sulfa (Sulfonamide Allergy Intermediate Rash Verified 07/03/24 00:22 Antibiotics) [Sulfa (Sulfonamides)] ziprasidone [From Geodon] Allergy Intermediate dysuria, Verified 07/03/24 00:22 rash lithium Allergy Rash Verified 07/03/24 00:22 Review of Systems Review of Systems: Constitutional : No Weight loss, No Fever, No Chills, No Night Sweats, No Fatigue, No Malaise ENT/Mouth : No Hearing loss, No Ear Pain, No Nasal Congestion, No Sinus Pain, No Hoarseness, No sore throat, No Rhinorrhea, No Swallowing Difficulty Eyes: No Eye Pain, No Swelling, No Redness, No Foreign Body, No Discharge, No Vision Changes Cardiovascular : No Chest Pain, No SOB, No Dyspnea on Exertion, No Orthopnea, No Edema, No Palpitations Respiratory : No Cough, No Sputum, No Wheezing, No Smoke Exposure, No Dyspnea Gastrointestinal : No Nausea, No Vomiting, No Diarrhea, No Constipation, No abdominal Pain, No Hematochezia, No Melena Genitourinary : no irregular bleeding, No Dysuria, No Urinary Frequency, No Hematuria, No Urinary Incontinence, No Urgency, No Flank Pain, No Urinary Flow Changes, No Hesitancy Musculoskeletal : No joint pain, No Myalgias, No Joint Swelling Skin : No Skin Lesions, No rash Neuro : No Weakness, No Numbness, No Paresthesias, No Loss of Consciousness, No Dizziness, No Headache Psych : Complaining of anxiety and depression, vague SI, no HI Heme/Lymph: No Bruising, No Bleeding,No Lymphadenopathy Endocrine : No Polyuria, No Polydipsia, No Temperature Intolerance [facility] Past Medical History Medical History Asthma Suicidal ideation MDD (major depressive disorder), recurrent episode, severe Chest pain Acute anxiety COVID-19 Full body hives Major depression Dizziness Suicide attempt UTI (urinary tract infection) Acetaminophen overdose COVID History of attempted suicide History of non-suicidal self-harm Hypomagnesemia Suicide attempt Suicide attempt by acetaminophen overdose Acetaminophen overdose Depression Diabetes type 2, controlled Borderline personality disorder PTSD (post-traumatic stress disorder) Overdose GERD (gastroesophageal reflux disease) Mood disorder Hyperlipidemia Bronchitis Social History Social History Household Members: Other Household Members Other:: [facility] Housing: Other Housing Other:: [facility] Do you presently have visiting nurse or other home services: No Unable to assess alcohol history related to: Unknown Alcohol intake: never Comment: sitter in room Patient Tobacco Use Status: Current everyday Tobacco user Tobacco use type: Cigarette Cigarette Packs Per Day: 1 Cigarettes Per Day: 20.0 Years Smoked: 22 e-Cigarette/Vaping Use: Currently Using Second Hand Smoke Exposure: No Substance Use Type: Caffiene Advance Directives: No Advance Directives Information Provided: No service: No Current occupational status: unemployed and disabled Sexual orientation: Straight/Heterosexual Physical Exam Vital Signs: Vital Signs: Last Vital Signs Temp 98.0 F 07/03/24 00:10 Pulse 116 H 07/03/24 00:10 Resp 20 07/03/24 00:10 BP 150/92 H 07/03/24 00:10 Pulse Ox 95 07/03/24 00:10 O2 Del Method Room Air 07/03/24 00:10 Const: Other: Appearance: Alert. Oriented X3. No acute distress. Eyes: Pupils equal, round and reactive to light. ENT: Pharynx normal. Neck: Normal inspection. Neck supple. No lymph nodes noted. No crepitus CVS: Normal heart rate and rhythm. Pulses normal. Normal S1 and S2 Respiratory: No respiratory distress. Breath sounds normal. No Wheezing. No rales Abdomen: Soft and nontender. No rigidity. No distention. Skin: Skin warm and dry. Normal skin color. Normal skin turgor. Extremities: No lower extremity edema. No Lacerations. No Rash Neuro: Oriented X 3. No motor deficit. No sensory deficit. Moving all extremities. No slurred speech. CN 2 through 12 grossly intact Psych: calm, cooperative, normal affect Medical Decision Making Medical Decision Making MDM Narrative: patient had labs done couple of days ago, we will only get drugs of abuse and ethanol levels today. care team consult pending Differential Diagnosis Differential Diagnoses: The differential diagnosis associated with the presentation includes ( Bipolar disorder, anxiety, depression, schizophrenia, hallucinations) Admission/Observation Consideration of admission/observation: Escalation of care including admission/observation considered ( patient is under physician observation waiting to see him with the care team) Discharge Plan Discharge Clinical Impression: Auditory hallucination Patient Disposition: Still a Patient Instructions: Hallucinations (ED) Prescriptions: No Action ondansetron HCl 4 mg tablet 4 mg PO Q8H PRN (Reason: nausea and vomiting) Qty: 14 0RF fluoxetine 40 mg capsule 40 mg PO DAILY metformin 500 mg tablet 500 mg PO BID haloperidol 5 mg tablet 5 mg PO BID atorvastatin 10 mg tablet 10 mg PO DAILY clozapine 100 mg tablet 100 mg PO DAILY amlodipine 5 mg tablet 5 mg PO DAILY pantoprazole 20 mg tablet,delayed release (DR/EC) 20 mg PO BID lorazepam 0.5 mg tablet 0.5 mg PO Q4H PRN (Reason: Anxiety) buspirone 10 mg tablet 10 mg PO BID benztropine 1 mg tablet 1 mg PO BID montelukast 10 mg tablet 10 mg PO DAILY zaleplon 5 mg capsule 5 mg PO BEDTIME albuterol sulfate 90 mcg/actuation HFA aerosol inhaler 2 puff inhalation Q6H PRN (Reason: Wheezing) fluphenazine HCl 5 mg tablet 5 mg PO BID prazosin 2 mg capsule 2 mg PO BID naproxen 500 mg tablet 500 mg PO BID mirtazapine 7.5 mg tablet 7.5 mg PO BEDTIME Trelegy Ellipta 200-62.5-25 mcg blister with device 1 ea inhalation DAILY famotidine 20 mg Tablet 20 mg PO TIDWM PRN (Reason: GERD) 30 Days Qty: 90 0RF Print Language: Lithuanian
[2024-07-03 02:00] VITALS: BP 117/89; PULSE 101; RESP 18; TEMP 36.5; O2SAT 95
[2024-07-03 02:52] LABS: Amphetamine Screen Urine Not Detected (Not Detect); Barbiturates, Urine Not Detected (Not Detect); Benzodiazepines Screen Urine Not Detected (Not Detect); Buprenorphine Scr Not Detected (Not Detect); Cannabinoid Screen Urine Not Detected (Not Detect); Cocaine Screen Urine Not Detected (Not Detect); Fentanyl, urine Not Detected (Not Detect); Methadone Screen, Urine Not Detected (Not Detect); Opiate Screen Urine Not Detected (Not Detect); Oxycodone Screen Urine Not Detected (Not Detect); Phencyclidine Screen Urine Not Detected (Not Detect)
[2024-07-03 03:01] LABS: Ethanol < 10 mg/dL
--- NOTE | 2024-07-03 05:06 | PC.NURSE ---
miguel patel on stretcher with eyes closed, resp with ease, no s/s of acute distress
[2024-07-03 06:00] VITALS: BP 157/97; PULSE 95; RESP 16; TEMP 36.6; O2SAT 94
--- NOTE | 2024-07-03 06:15 | PC.NURSE ---
resting quietly on stretcher, with eyes closed, resp with ease, pt remains on 1:1 observation. awaiting care team
--- NOTE | 2024-07-03 07:03 | PC.NURSE ---
report given to Rosana CARDOSO
--- NOTE | 2024-07-03 07:25 | PC.NURSE ---
Care of Pt assumed at change of shift. Pt is observed resting quietly with her eye closed on stretcher. NAD at this time.
[2024-07-03 08:05] VITALS: BP 145/86; PULSE 95; RESP 16; TEMP 36.7; O2SAT 95
--- NOTE | 2024-07-03 09:25 | MHC.CARE ---
[facility] follow up completed
== END 2024-07-03 08:17 | disposition home or self-care (01) ==
PROVIDERS: Emergency Provider Emergency Medicine; PCP Nurse Practitioner Family
DX: R44.0 Auditory hallucinations (principal); R45.851 Suicidal ideations; Z51.81 Encounter for therapeutic drug level monitoring; F17.210 Nicotine dependence, cigarettes, uncomplicated; Z79.899 Other long term (current) drug therapy
CPT/HCPCS: 36415; 80307; 99285; S9485

== ENCOUNTER 2024-07-08 00:06 | Emergency (ER) | payer MEDICARE, MEDICAID, SELFPAY ==
[2024-07-08 00:22] VITALS: BP 150/90; BP 151/101; PULSE 120; PULSE 98; RESP 18; TEMP 36.8; O2SAT 94; O2SAT 96; BMI 42.2
--- NOTE | 2024-07-08 00:51 | ED_ITS ---
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 This is a chronic complaint. Scratched her L forearm. No ingestions. MD complaint: suicidal ideation, feels depressed and hallucinations Onset (ago): year(s) Duration: intermittent History of same: Yes Relieving factors: none Exacerbating factors: other Context: significant life stressor Associated psychiatric symptoms: depression, suicidal ideation and auditory hallucinations Associated symptoms: denies other symptoms Treatments prior to arrival: none If self harm: admits thoughts of self harm Related Data Home Medications ?Medication ?Instructions ?Recorded ?Confirmed albuterol sulfate 90 mcg/actuation 2 puff inhalation Q6H PRN Wheezing 06/24/24 07/08/24 aerosol inhaler amlodipine 5 mg tablet 5 mg PO DAILY 06/24/24 07/08/24 atorvastatin 10 mg tablet 10 mg PO DAILY 06/24/24 07/08/24 benztropine 1 mg tablet 1 mg PO BID 06/24/24 07/08/24 buspirone 10 mg tablet 10 mg PO BID 06/24/24 07/08/24 clozapine 100 mg tablet 100 mg PO DAILY 06/24/24 07/08/24 fluoxetine 40 mg capsule 40 mg PO DAILY 06/24/24 07/08/24 fluphenazine HCl 5 mg tablet 5 mg PO BID 06/24/24 07/08/24 fluticasone fur. 200 mcg-umeclid 1 ea inhalation DAILY 06/24/24 07/08/24 62.5 mcg-vilant 25 mcg inhalat.powder (Trelegy Ellipta) haloperidol 5 mg tablet 5 mg PO BID 06/24/24 07/08/24 lorazepam 0.5 mg tablet 0.5 mg PO Q4H PRN Anxiety 06/24/24 07/08/24 metformin 500 mg tablet 500 mg PO BID 06/24/24 07/08/24 mirtazapine 7.5 mg tablet 7.5 mg PO BEDTIME 06/24/24 07/08/24 montelukast 10 mg tablet 10 mg PO DAILY 06/24/24 07/08/24 naproxen 500 mg tablet 500 mg PO BID 06/24/24 07/08/24 pantoprazole 20 mg tablet,delayed 20 mg PO BID 06/24/24 07/08/24 release prazosin 2 mg capsule 2 mg PO BID 06/24/24 07/08/24 zaleplon 5 mg capsule 5 mg PO BEDTIME 06/24/24 07/08/24 Previous Rx's ?Medication ?Instructions ?Recorded famotidine 20 mg tablet 20 mg PO TIDWM PRN GERD 30 days 06/27/24 #90 tabs Allergies Allergy/AdvReac Type Severity Reaction Status Date / Time azithromycin [AZITHROMYCIN] Allergy Severe Rash Verified 07/08/24 00:24 Fish Containing Products Allergy Severe Anaphylaxis Verified 07/08/24 00:24 codeine [Codeine] Allergy Intermediate Rash Verified 07/08/24 00:24 Penicillins Allergy Intermediate Rash Verified 07/08/24 00:24 prednisone [Prednisone] Allergy Intermediate Rash Verified 07/08/24 00:24 Sulfa (Sulfonamide Allergy Intermediate Rash Verified 07/08/24 00:24 Antibiotics) [Sulfa (Sulfonamides)] ziprasidone [From Geodon] Allergy Intermediate dysuria, Verified 07/08/24 00:24 rash lithium Allergy Rash Verified 07/08/24 00:24 Review of Systems 2 Review of Systems: Constitutional : No Fever, No Chills ENT/Mouth : No Ear Pain, No Nasal Congestion, No sore throat Eyes: No Eye Pain, No Swelling, No Redness Cardiovascular : No Chest Pain, No SOB Respiratory : No Cough, No Sputum, No Dyspnea Gastrointestinal : No Nausea, No Vomiting, No Diarrhea, No Hematochezia, No Melena Genitourinary : No Dysuria, No Urinary Frequency, No Hematuria Musculoskeletal : No Myalgias Skin : No Skin Lesions, No rash Neuro : No Weakness, No Numbness, No Paresthesias, No Dizziness, No Headache Psych : positive Anxiety, positive Depression, positive SI, no HI, pos AH Heme/Lymph: No Lymphadenopathy Endocrine : No Polyuria, No Polydipsia All other systems reviewed and are negative [facility] Past Medical History Attestation statement: The following information was validated with the patient. Source: old records reviewed Medical History Asthma Suicidal ideation MDD (major depressive disorder), recurrent episode, severe Chest pain Acute anxiety COVID-19 Full body hives Major depression Dizziness Suicide attempt UTI (urinary tract infection) Acetaminophen overdose COVID History of attempted suicide History of non-suicidal self-harm Hypomagnesemia Suicide attempt Suicide attempt by acetaminophen overdose Acetaminophen overdose Depression Diabetes type 2, controlled Borderline personality disorder PTSD (post-traumatic stress disorder) Overdose GERD (gastroesophageal reflux disease) Mood disorder Hyperlipidemia Bronchitis Social History Social History Household Members: Other Household Members Other:: skilled nursing Housing: Other Housing Other:: [facility] Do you presently have visiting nurse or other home services: No Unable to assess alcohol history related to: Unknown Alcohol intake: never Comment: sitter in room Patient Tobacco Use Status: Current everyday Tobacco user Tobacco use type: Cigarette Cigarette Packs Per Day: 1 Cigarettes Per Day: 20.0 Years Smoked: 22 e-Cigarette/Vaping Use: Currently Using Second Hand Smoke Exposure: No Substance Use Type: Caffiene Advance Directives: No Advance Directives Information Provided: No service: No Current occupational status: unemployed and disabled Sexual orientation: Straight/Heterosexual Physical Exam 2 Vital Signs: Vital Signs: Last Vital Signs Temp 98.3 F 07/08/24 00:22 Pulse 98 07/08/24 00:22 Resp 18 07/08/24 00:22 BP 151/101 H 07/08/24 00:22 Pulse Ox 96 07/08/24 00:22 O2 Del Method Room Air 07/08/24 00:22 BMI result Body Mass Index 42.2 Appearance: Alert. Oriented X3. No acute distress. Eyes: Pupils equal, round and reactive to light. ENT: Pharynx normal. Neck: Normal inspection. Neck supple. CVS: Normal heart rate and rhythm. Pulses normal. Respiratory: No respiratory distress. Breath sounds normal. Abdomen: Soft and nontender. Skin: Skin warm and dry. Normal skin color. Normal skin turgor. Extremities: No lower extremity edema. L forearm superficial linear abrasions Neuro: Oriented X 3. No motor deficit. No sensory deficit. CN2-12 intact Medical Decision Making Medical Decision Making MDM Narrative: 48 yo female with PMH of multiple SI attempts, borderline personality disorder, longterm smoker, HLD, GERD, bronchitis here with chronic SI and AH. At this time clearance labs and CARE team consult Differential Diagnosis Differential Diagnoses: The differential diagnosis associated with the presentation includes chronic SI, AH, BPD Admission/Observation Consideration of admission/observation: Escalation of care including admission/observation considered physician observation started at 127am pending CARE team Lab Data MDM Lab Attestation statement: I reviewed the patient's lab results. 07/08/24 01:01 07/08/24 01:01 Labs: Lab Results 07/08/24 07/08/24 Range/Units 00:51 01:01 WBC 8.2 (4.8-10.8) X10*3/uL RBC 4.10 L (4.20-5.50) X10*6/uL Hgb 12.7 (12.0-16.0) g/dl Hct 37.9 (37.0-47.0) % MCV 92.4 (80.0-98.0) fL MCH 31.0 (27.0-33.0) pg MCHC 33.5 (31.0-35.0) g/dl RDW 12.6 (11.0-16.0) % Plt Count 273 (160-400) X10*3/uL MPV 9.0 L (9.4-12.3) fL Immature Gran % (Auto) 0.6 H (0.0-0.4) % Neut % (Auto) 64.8 (45-73) % Lymph % (Auto) 21.1 (20-40) % [place] % (Auto) 8.8 (2-11) % Eos % (Auto) 4.3 H (0-4) % Baso % (Auto) 0.4 (0-2) % Lymph # (Auto) 1.7 (1.2-4.9) X10*3/uL [place] # (Auto) 0.7 (0.1-1.2) X10*3/uL Eos # (Auto) 0.4 (0.0-0.4) X10*3/uL Baso # (Auto) 0.0 (0.0-0.2) X10*3/uL Abs Immat Gran (auto) 0.05 H (0.00-0.03) X10*3/uL Absolute Neuts (auto) 5.3 (2.0-8.3) x10*3/uL Absolute Nucleated RBC 0.000 (0.0-0.012) X10*3/uL Nucleated RBC % (auto) 0.0 (0.0-0.2) /100WBC Sodium 141 (135-145) mmol/L Potassium 3.7 (3.3-5.1) mmol/L Chloride 107 (96-108) mmol/L Carbon Dioxide 23 (22-29) mmol/L Anion Gap 15 (12-20) BUN 7 L (9-16) mg/dL Creatinine 0.79 (0.5-1.4) mg/dL Estim Creat Clear Calc 108.7 Estimated GFR > 60 Random Glucose 149 H (60-115) mg/dL Calcium 9.6 D (8.4-10.2) mg/dL Total Bilirubin 0.3 (0.0-1.0) mg/dL AST 16 (5-31) U/L ALT 20 (0-31) U/L Alkaline Phosphatase 135 H (39-117) U/L Total Protein 7.1 (6.5-8.0) g/dL Albumin 4.4 (3.5-5.0) g/dL Urine Color Yellow Urine Appearance Clear Urine pH 6.0 (5.0-9.0) Ur Specific [place] <= 1.005 (1.005-1.025) Urine Protein Negative (Neg-Trace) mg/dL Urine Glucose (UA) Negative (Negative) mg/dL Urine Ketones Negative (Negative) mg/dL Urine Blood Negative (Negative) Urine Nitrite Negative (Negative) Ur Leukocyte Esterase Negative (Negative) Urine Test NEGATIVE (NEGATIVE) Salicylates < 5.0 L (15-30) mg/dL Urine Opiates Screen Not Detected (Not Detect) Ur Buprenorphine Scrn Not Detected (Not Detect) ng/mL Ur Oxycodone Screen Not Detected (Not Detect) ng/mL Urine Methadone Screen Not Detected (Not Detect) ng/mL Urine Fentanyl Screen Not Detected (Not Detect) Acetaminophen < 3 (<30) mcg/mL Ur Barbiturates Screen Not Detected (Not Detect) Ur Phencyclidine Scrn Not Detected (Not Detect) Ur Amphetamines Screen Not Detected (Not Detect) U Benzodiazepines Scrn Not Detected (Not Detect) Urine Cocaine Screen Not Detected (Not Detect) U Marijuana (THC) Screen Not Detected (Not Detect) Ethyl Alcohol < 10 mg/dL Independent Historian Clinical information obtained from an independent historian. History obtained from or confirmed by: EMS External Record Review External record reviewed: Inpatient record Discharge Plan Discharge Clinical Impression: Depression with suicidal ideation Patient Disposition: Still a Patient Instructions: Suicide Prevention (ED) Prescriptions: No Action fluoxetine 40 mg capsule 40 mg PO DAILY metformin 500 mg tablet 500 mg PO BID haloperidol 5 mg tablet 5 mg PO BID atorvastatin 10 mg tablet 10 mg PO DAILY clozapine 100 mg tablet 100 mg PO DAILY amlodipine 5 mg tablet 5 mg PO DAILY pantoprazole 20 mg tablet,delayed release (DR/EC) 20 mg PO BID lorazepam 0.5 mg tablet 0.5 mg PO Q4H PRN (Reason: Anxiety) buspirone 10 mg tablet 10 mg PO BID benztropine 1 mg tablet 1 mg PO BID montelukast 10 mg tablet 10 mg PO DAILY zaleplon 5 mg capsule 5 mg PO BEDTIME albuterol sulfate 90 mcg/actuation HFA aerosol inhaler 2 puff inhalation Q6H PRN (Reason: Wheezing) fluphenazine HCl 5 mg tablet 5 mg PO BID prazosin 2 mg capsule 2 mg PO BID naproxen 500 mg tablet 500 mg PO BID mirtazapine 7.5 mg tablet 7.5 mg PO BEDTIME Trelegy Ellipta 200-62.5-25 mcg blister with device 1 ea inhalation DAILY famotidine 20 mg Tablet 20 mg PO TIDWM PRN (Reason: GERD) 30 Days Qty: 90 0RF Print Language: Burmese
[2024-07-08 01:07] LABS: MANUAL DIFF FLAG NO
[2024-07-08 01:08] LABS: Basophils Percent Auto 0.4 % (0-2); Eosinophils Absolute Auto 0.4 X10*3/uL (0.0-0.4); Eosinophils Percent Auto 4.3 % (0-4); Hematocrit 37.9 % (37.0-47.0); Hemoglobin 12.7 g/dl (12.0-16.0); Imm Gran Abs Auto 0.05 X10*3/uL (0.00-0.03); Imm Gran Pct Auto 0.6 % (0.0-0.4); Lymphocytes Absolute Auto 1.7 X10*3/uL (1.2-4.9); Lymphocytes Percent Auto 21.1 % (20-40); Mean Corpuscular HGB Conc 33.5 g/dl (31.0-35.0); Mean Corpuscular Volume 92.4 fL (80.0-98.0); Monocytes Absolute Auto 0.7 X10*3/uL (0.1-1.2); Monocytes Percent Auto 8.8 % (2-11); Neutrophils Absolute Auto 5.3 x10*3/uL (2.0-8.3); Neutrophils Percent Auto 64.8 % (45-73); Platelet Count 273 X10*3/uL (160-400); Red Cell Distribution Width 12.6 % (11.0-16.0); White Blood Count 8.2 X10*3/uL (4.8-10.8)
[2024-07-08 01:10] LABS: Appearance Urine Clear; Color Urine Yellow; Glucose Urine UA Negative (Negative); Leukocyte Esterase Urine Negative (Negative); Nitrite Urine Negative (Negative); Specific Gravity - Urine <= 1.005 (1.005-1.025); Urine Blood Negative (Negative); Urine Ketones Negative (Negative); Urine Protein Negative (Neg-Trace)
[2024-07-08 01:12] LABS: UPreg QC Valid YES; Urine Pregnancy NEGATIVE (NEGATIVE)
[2024-07-08 01:23] LABS: Amphetamine Screen Urine Not Detected (Not Detect); Barbiturates, Urine Not Detected (Not Detect); Benzodiazepines Screen Urine Not Detected (Not Detect); Buprenorphine Scr Not Detected (Not Detect); Cannabinoid Screen Urine Not Detected (Not Detect); Cocaine Screen Urine Not Detected (Not Detect); Fentanyl, urine Not Detected (Not Detect); Methadone Screen, Urine Not Detected (Not Detect); Opiate Screen Urine Not Detected (Not Detect); Oxycodone Screen Urine Not Detected (Not Detect); Phencyclidine Screen Urine Not Detected (Not Detect)
[2024-07-08 01:27] LABS: Acetaminophen LAB < 3 mcg/mL (<30); Alanine Aminotransferase 20 U/L (0-31); Albumin Level 4.4 g/dL (3.5-5.0); Alkaline Phosphatase 135 U/L (39-117); Anion Gap 15 (12-20); Aspartate Amino Transferase 16 U/L (5-31); Bilirubin Total 0.3 mg/dL (0.0-1.0); Blood Urea Nitrogen 7 mg/dL (9-16); Calcium 9.6 mg/dL (8.4-10.2); Carbon Dioxide 23 mmol/L (22-29); Chloride 107 mmol/L (96-108); Creatinine Clr Calc Pharmacy 108.7; Estimated Glomerular Filt Rate > 60; Ethanol < 10 mg/dL; Glucose Random 149 mg/dL (60-115); Potassium 3.7 mmol/L (3.3-5.1); Salicylate < 5.0 mg/dL (15-30); Sodium 141 mmol/L (135-145); Total Protein 7.1 g/dL (6.5-8.0)
[2024-07-08 06:46] VITALS: BP 146/99; PULSE 106; RESP 18; TEMP 36.9; O2SAT 95
--- NOTE | 2024-07-08 07:14 | PC.NURSE ---
Assumed care of patient at 0645. At this time the patient is resting quietly in their bed. No signs of distress observed.
--- NOTE | 2024-07-08 08:11 | MHC.CARE ---
The plan is for patient to be discharged to her current providers. A lyft will be provided for transport back to [facility].
[2024-07-08 08:12] VITALS: BP 146/99; PULSE 106; RESP 18; TEMP 36.9; O2SAT 95
== END 2024-07-08 08:21 | disposition home or self-care (01) ==
PROVIDERS: Emergency Provider Emergency Medicine; PCP Nurse Practitioner Family
DX: F33.1 Major depressive disorder, recurrent, moderate (principal); R45.851 Suicidal ideations; F17.210 Nicotine dependence, cigarettes, uncomplicated; Z79.899 Other long term (current) drug therapy; Z51.81 Encounter for therapeutic drug level monitoring
CPT/HCPCS: 36415; 80053; 80143; 80179; 80307; 81003; 81025; 85025; 99285; S9485

== ENCOUNTER 2024-07-14 22:00 | Emergency (ER) | payer MEDICARE, MEDICAID, SELFPAY ==
[2024-07-14 22:04] VITALS: BP 167/99; BP 200/110; PULSE 113; PULSE 125; RESP 20; TEMP 37.2; O2SAT 96; O2SAT 98; BMI 43.5
--- NOTE | 2024-07-14 22:19 | ECG_ITS ---
Test Reason : IBUPROFEN OD Blood Pressure : / mmHG Vent. Rate : 110 BPM Atrial Rate : 110 BPM P-R Int : 164 ms QRS Dur : 084 ms QT Int : 342 ms P-R-T Axes : 051 021 035 degrees QTc Int : 462 ms Sinus tachycardia Possible Left atrial enlargement Borderline ECG When compared with ECG of 07-JUN-2024 11:13, No significant change was found Referred By: Eileen Ryan Electronically Signed By:JESU EASTMAN
--- NOTE | 2024-07-14 22:23 | PC.NURSE ---
belongings/clothing placed in closet, c5. patient had clothing, shoes and cigarettes.
--- NOTE | 2024-07-14 22:27 | ED.GENADULT ---
HPI - General Adult General Chief complaint: Overdose Stated complaint: [facility] OD, 20 Ibuprofen, SI Time Seen by Provider: 07/14/24 22:18 Source: patient and EMS Mode of arrival: EMS Limitations: no limitations History of Present Illness ED Provider: Dr. Eileen Ryan HPI narrative: Patient comes to the emergency room via ambulance from her [facility]. Patient states that she took approximately 20 tablets of ibuprofen 200 mg each. Patient states that the voices in her head told her to do so. Patient states that she did not quite count them, but estimates it was a handful of 20 tablets. Patient reports having nausea, abdominal pain, general malaise. Patient states that she found the ibuprofen in the staff's car. She immediately informed the staff of what she did, the count of the tablets and estimated that approximately 20 tablets were missing. Patient denies using drugs or taking acetaminophen. Related Data Home Medications ?Medication ?Instructions ?Recorded ?Confirmed albuterol sulfate 90 mcg/actuation 2 puff inhalation Q6H PRN Wheezing 06/24/24 07/08/24 aerosol inhaler amlodipine 5 mg tablet 5 mg PO DAILY 06/24/24 07/08/24 atorvastatin 10 mg tablet 10 mg PO DAILY 06/24/24 07/08/24 benztropine 1 mg tablet 1 mg PO BID 06/24/24 07/08/24 buspirone 10 mg tablet 10 mg PO BID 06/24/24 07/08/24 clozapine 100 mg tablet 100 mg PO DAILY 06/24/24 07/08/24 fluoxetine 40 mg capsule 40 mg PO DAILY 06/24/24 07/08/24 fluphenazine HCl 5 mg tablet 5 mg PO BID 06/24/24 07/08/24 fluticasone fur. 200 mcg-umeclid 1 ea inhalation DAILY 06/24/24 07/08/24 62.5 mcg-vilant 25 mcg inhalat.powder (Trelegy Ellipta) haloperidol 5 mg tablet 5 mg PO BID 06/24/24 07/08/24 lorazepam 0.5 mg tablet 0.5 mg PO Q4H PRN Anxiety 06/24/24 07/08/24 metformin 500 mg tablet 500 mg PO BID 06/24/24 07/08/24 mirtazapine 7.5 mg tablet 7.5 mg PO BEDTIME 06/24/24 07/08/24 montelukast 10 mg tablet 10 mg PO DAILY 06/24/24 07/08/24 naproxen 500 mg tablet 500 mg PO BID 06/24/24 07/08/24 pantoprazole 20 mg tablet,delayed 20 mg PO BID 06/24/24 07/08/24 release prazosin 2 mg capsule 2 mg PO BID 06/24/24 07/08/24 zaleplon 5 mg capsule 5 mg PO BEDTIME 06/24/24 07/08/24 Previous Rx's ?Medication ?Instructions ?Recorded famotidine 20 mg tablet 20 mg PO TIDWM PRN GERD 30 days 06/27/24 #90 tabs Allergies Allergy/AdvReac Type Severity Reaction Status Date / Time azithromycin [AZITHROMYCIN] Allergy Severe Rash Verified 07/14/24 22:15 Fish Containing Products Allergy Severe Anaphylaxis Verified 07/14/24 22:15 codeine [Codeine] Allergy Intermediate Rash Verified 07/14/24 22:15 Penicillins Allergy Intermediate Rash Verified 07/14/24 22:15 prednisone [Prednisone] Allergy Intermediate Rash Verified 07/14/24 22:15 Sulfa (Sulfonamide Allergy Intermediate Rash Verified 07/14/24 22:15 Antibiotics) [Sulfa (Sulfonamides)] ziprasidone [From Geodon] Allergy Intermediate dysuria, Verified 07/14/24 22:15 rash lithium Allergy Rash Verified 07/14/24 22:15 Review of Systems Review of Systems: Constitutional : No Weight loss, No Fever, No Chills, No Night Sweats, No Fatigue, No Malaise ENT/Mouth : No Hearing loss, No Ear Pain, No Nasal Congestion, No Sinus Pain, No Hoarseness, No sore throat, No Rhinorrhea, No Swallowing Difficulty Eyes: No Eye Pain, No Swelling, No Redness, No Foreign Body, No Discharge, No Vision Changes Cardiovascular : No Chest Pain, No SOB, No Dyspnea on Exertion, No Orthopnea, No Edema, No Palpitations Respiratory : No Cough, No Sputum, No Wheezing, No Smoke Exposure, No Dyspnea Gastrointestinal : Complaining of Nausea, No Vomiting, No Diarrhea, No Constipation, No abdominal Pain, No Hematochezia, No Melena Genitourinary : no irregular bleeding, No Dysuria, No Urinary Frequency, No Hematuria, No Urinary Incontinence, No Urgency, No Flank Pain, No Urinary Flow Changes, No Hesitancy Musculoskeletal : No joint pain, No Myalgias, No Joint Swelling Skin : No Skin Lesions, No rash Neuro : No Weakness, No Numbness, No Paresthesias, No Loss of Consciousness, No Dizziness, No Headache Psych : No Anxiety/Panic, No Depression, No SI/HI/AH/VH, admits to suicide attempt by trying to overdose with ibuprofen Heme/Lymph: No Bruising, No Bleeding,No Lymphadenopathy Endocrine : No Polyuria, No Polydipsia, No Temperature Intolerance PMFSH Past Medical History Medical History Asthma Suicidal ideation MDD (major depressive disorder), recurrent episode, severe Chest pain Acute anxiety COVID-19 Full body hives Major depression Dizziness Suicide attempt UTI (urinary tract infection) Acetaminophen overdose COVID History of attempted suicide History of non-suicidal self-harm Hypomagnesemia Suicide attempt Suicide attempt by acetaminophen overdose Acetaminophen overdose Depression Diabetes type 2, controlled Borderline personality disorder PTSD (post-traumatic stress disorder) Overdose GERD (gastroesophageal reflux disease) Mood disorder Hyperlipidemia Bronchitis Social History Social History Household Members: Other Household Members Other:: [facility] Housing: Other Housing Other:: retirement [place] [facility] Do you presently have visiting nurse or other home services: No Unable to assess alcohol history related to: Unknown Alcohol intake: never Comment: sitter in room Patient Tobacco Use Status: Current everyday Tobacco user Tobacco use type: Cigarette Cigarette Packs Per Day: 1 Cigarettes Per Day: 20.0 Years Smoked: 22 Smoked in Last 30 Days: Yes e-Cigarette/Vaping Use: Currently Using Second Hand Smoke Exposure: No Use of substances other than those prescribed or required for medical reasons: No Substance Use Type: Caffiene Advance Directives: No Advance Directives Information Provided: No Do you have a plan to hurt others: No Plan Patient : No service: No Current occupational status: unemployed and disabled Sexual orientation: Straight/Heterosexual Physical Exam ED Vital Signs: Vital Signs - 24 hr 07/14/24 22:04 07/15/24 02:08 Temperature 98.9 F 97.8 F Pulse Rate 113 H 102 H Respiratory Rate 20 18 Blood Pressure 167/99 H 135/95 H Pulse Oximetry 96 95 Oxygen Delivery Method Room Air Room Air BMI result Body Mass Index 43.5 Const Other: Appearance: Alert. Oriented X3. No acute distress. Eyes: Pupils equal, round and reactive to light. ENT: Pharynx normal. Neck: Normal inspection. Neck supple. No lymph nodes noted. No crepitus CVS: Normal heart rate and rhythm. Pulses normal. Normal S1 and S2 Respiratory: No respiratory distress. Breath sounds normal. No Wheezing. No rales Abdomen: Soft and nontender. No rigidity. No distention. Skin: Skin warm and dry. Normal skin color. Normal skin turgor. Extremities: No lower extremity edema. No Lacerations. No Rash Neuro: Oriented X 3. No motor deficit. No sensory deficit. Moving all extremities. No slurred speech. CN 2 through 12 grossly intact Psych: calm, cooperative, anxious Course Course Course Narrative: -all of patient's labs and imaging pending -EKG pending. Discussed with the patient's nurse to immediately called poison control, patient may need activated charcoal -patient is on a Section 12 Medications Administered Discontinued Medications Generic Name Dose Route Start Last Admin Trade Name Bradleyq PRN Reason Stop Dose Admin Ondansetron HCl 4 mg 07/14/24 23:55 07/15/24 00:55 Ondansetron Odt 4 Mg Tab.Rapdis TRANSLINGU 07/14/24 23:56 4 mg ONCE ONE Administration Medical Decision Making Medical Decision Making [facility] Narrative: -we called poison control: Recommendations, no activated charcoal at this time. At this time, recommendations are to do labs, patient can medically be cleared in 4-6 hours from now. -my interpretation of labs: Normal hematology and chemistry, normal LFTs, normal lipase, pH 7.54, ammonia normal, acetaminophen and salicylate levels negative, negative for UTI, blood in the urine secondary to menstruation. ETOH negative -my interpretation of EKG: Sinus tachycardia, heart rate 110, no ST segment depression or elevation, no T-wave inversion, QTC 462 -patient remains on a Section 12 and on a one-to-one -03:00: Patient's chemistry and acetaminophen levels are normal. Patient is medically cleared to be seen by the care team -care team consult pending Differential Diagnosis Differential Diagnoses: The differential diagnosis associated with the presentation includes (Acetaminophen overdose, ibuprofen overdose, suicidal ideation, auditory hallucinations, suicide attempt) Admission/Observation Consideration of admission/observation: Escalation of care including admission/observation considered Lab Data [facility] Lab Attestation statement: I reviewed the patient's lab results. 07/14/24 22:56 07/15/24 03:11 Labs: Lab Results 07/14/24 07/14/24 07/14/24 Range/Units 22:56 22:59 23:04 WBC 8.7 (4.8-10.8) X10*3/uL RBC 3.90 L (4.20-5.50) X10*6/uL Hgb 12.3 (12.0-16.0) g/dl Hct 36.1 L (37.0-47.0) % MCV 92.6 (80.0-98.0) fL MCH 31.5 (27.0-33.0) pg MCHC 34.1 (31.0-35.0) g/dl RDW 12.5 (11.0-16.0) % Plt Count 274 (160-400) X10*3/uL MPV 9.1 L (9.4-12.3) fL Immature Gran % (Auto) 0.7 H (0.0-0.4) % Neut % (Auto) 68.0 (45-73) % Lymph % (Auto) 18.3 L (20-40) % Major % (Auto) 8.0 (2-11) % Eos % (Auto) 4.5 H (0-4) % Baso % (Auto) 0.5 (0-2) % Lymph # (Auto) 1.6 (1.2-4.9) X10*3/uL Major # (Auto) 0.7 (0.1-1.2) X10*3/uL Eos # (Auto) 0.4 (0.0-0.4) X10*3/uL Baso # (Auto) 0.0 (0.0-0.2) X10*3/uL Abs Immat Gran (auto) 0.06 H (0.00-0.03) X10*3/uL Absolute Neuts (auto) 5.9 (2.0-8.3) x10*3/uL Absolute Nucleated RBC 0.000 (0.0-0.012) X10*3/uL Nucleated RBC % (auto) 0.0 (0.0-0.2) /100WBC PT 10.8 L (10.9-12.4) SEC INR 0.9 (0.9-1.1) VBG pH (7.32-7.43) VBG pCO2 mmHg VBG pO2 mmHg VBG HCO3 (22-26) mmol/L VBG O2 Saturation % VBG Base Excess mmol/L Sodium 140 (135-145) mmol/L Potassium 3.7 (3.3-5.1) mmol/L Chloride 108 (96-108) mmol/L Carbon Dioxide 22 (22-29) mmol/L Anion Gap 14 (12-20) BUN 10 (9-16) mg/dL Creatinine 0.83 (0.5-1.4) mg/dL Estim Creat Clear Calc 105.3 Estimated GFR > 60 Random Glucose 141 H (60-115) mg/dL Lactic Acid 1.8 (0.5-2.0) mmol/L Calcium 9.1 (8.4-10.2) mg/dL Magnesium 2.0 (1.6-2.6) mg/dL Total Bilirubin 0.2 (0.0-1.0) mg/dL Direct Bilirubin < 0.2 (0.0-0.5) mg/dL AST 18 (5-31) U/L ALT 18 (0-31) U/L Alkaline Phosphatase 134 H (39-117) U/L Ammonia 32 (13-55) umol/L Troponin I High Sens < 2.7 (<3.5-17.0) ng/L Total Protein 7.0 (6.5-8.0) g/dL Albumin 4.3 (3.5-5.0) g/dL Lipase 19 (8-78) U/L Urine Color Yellow Urine Appearance Clear Urine pH 5.5 (5.0-9.0) Ur Specific [place] <= 1.005 (1.005-1.025) Urine Protein Negative (Neg-Trace) mg/dL Urine Glucose (UA) Negative (Negative) mg/dL Urine Ketones Negative (Negative) mg/dL Urine Blood Large (3+) H (Negative) Urine Nitrite Negative (Negative) Ur Leukocyte Esterase Trace H (Negative) Urine RBC >20 H (0-2) /HPF Urine WBC 0-5 (0-5) /HPF Ur Squamous Epith Cells 0-2 (0-2) /HPF Urine Bacteria None Seen (None Seen) Hyaline Casts 0-2 (0-2) /LPF Salicylates < 5.0 L (15-30) mg/dL Urine Opiates Screen Not Detected (Not Detect) Ur Buprenorphine Scrn Not Detected (Not Detect) ng/mL Ur Oxycodone Screen Not Detected (Not Detect) ng/mL Urine Methadone Screen Not Detected (Not Detect) ng/mL Urine Fentanyl Screen Not Detected (Not Detect) Acetaminophen < 3 (<30) mcg/mL Ur Barbiturates Screen Not Detected (Not Detect) Ur Phencyclidine Scrn Not Detected (Not Detect) Ur Amphetamines Screen Not Detected (Not Detect) U Benzodiazepines Scrn Not Detected (Not Detect) Urine Cocaine Screen Not Detected (Not Detect) U Marijuana (THC) Screen Not Detected (Not Detect) Ethyl Alcohol < 10 mg/dL 07/14/24 07/15/24 Range/Units 23:07 03:11 WBC (4.8-10.8) X10*3/uL RBC (4.20-5.50) X10*6/uL Hgb (12.0-16.0) g/dl Hct (37.0-47.0) % MCV (80.0-98.0) fL MCH (27.0-33.0) pg MCHC (31.0-35.0) g/dl RDW (11.0-16.0) % Plt Count (160-400) X10*3/uL MPV (9.4-12.3) fL Immature Gran % (Auto) (0.0-0.4) % Neut % (Auto) (45-73) % Lymph % (Auto) (20-40) % Major % (Auto) (2-11) % Eos % (Auto) (0-4) % Baso % (Auto) (0-2) % Lymph # (Auto) (1.2-4.9) X10*3/uL Major # (Auto) (0.1-1.2) X10*3/uL Eos # (Auto) (0.0-0.4) X10*3/uL Baso # (Auto) (0.0-0.2) X10*3/uL Abs Immat Gran (auto) (0.00-0.03) X10*3/uL Absolute Neuts (auto) (2.0-8.3) x10*3/uL Absolute Nucleated RBC (0.0-0.012) X10*3/uL Nucleated RBC % (auto) (0.0-0.2) /100WBC PT (10.9-12.4) SEC INR (0.9-1.1) VBG pH 7.54 H (7.32-7.43) VBG pCO2 28 mmHg VBG pO2 152 mmHg VBG HCO3 24 (22-26) mmol/L VBG O2 Saturation 99.0 % VBG Base Excess 3.2 mmol/L Sodium 141 (135-145) mmol/L Potassium 3.5 (3.3-5.1) mmol/L Chloride 107 (96-108) mmol/L Carbon Dioxide 21 L (22-29) mmol/L Anion Gap 17 (12-20) BUN 10 (9-16) mg/dL Creatinine 0.79 (0.5-1.4) mg/dL Estim Creat Clear Calc 110.7 Estimated GFR > 60 Random Glucose 148 H (60-115) mg/dL Lactic Acid (0.5-2.0) mmol/L Calcium 9.1 (8.4-10.2) mg/dL Magnesium (1.6-2.6) mg/dL Total Bilirubin (0.0-1.0) mg/dL Direct Bilirubin (0.0-0.5) mg/dL AST (5-31) U/L ALT (0-31) U/L Alkaline Phosphatase (39-117) U/L Ammonia (13-55) umol/L Troponin I High Sens (<3.5-17.0) ng/L Total Protein (6.5-8.0) g/dL Albumin (3.5-5.0) g/dL Lipase (8-78) U/L Urine Color Urine Appearance Urine pH (5.0-9.0) Ur Specific [place] (1.005-1.025) Urine Protein (Neg-Trace) mg/dL Urine Glucose (UA) (Negative) mg/dL Urine Ketones (Negative) mg/dL Urine Blood (Negative) Urine Nitrite (Negative) Ur Leukocyte Esterase (Negative) Urine RBC (0-2) /HPF Urine WBC (0-5) /HPF Ur Squamous Epith Cells (0-2) /HPF Urine Bacteria (None Seen) Hyaline Casts (0-2) /LPF Salicylates (15-30) mg/dL Urine Opiates Screen (Not Detect) Ur Buprenorphine Scrn (Not Detect) ng/mL Ur Oxycodone Screen (Not Detect) ng/mL Urine Methadone Screen (Not Detect) ng/mL Urine Fentanyl Screen (Not Detect) Acetaminophen < 3 (<30) mcg/mL Ur Barbiturates Screen (Not Detect) Ur Phencyclidine Scrn (Not Detect) Ur Amphetamines Screen (Not Detect) U Benzodiazepines Scrn (Not Detect) Urine Cocaine Screen (Not Detect) U Marijuana (THC) Screen (Not Detect) Ethyl Alcohol mg/dL Critical Care Time Critical Care Time Critical Care Time: Yes Total Critical Care Time: 60 Attestation: I have personally provided critical care time. Time includes review of lab data, radiology results, discussion with consultants, and monitoring for potential decompensation. Intervention performed as documented. Discharge Plan Discharge Clinical Impression: Intentional ibuprofen overdose, Auditory hallucinations Patient Disposition: Still a Patient Prescriptions: No Action fluoxetine 40 mg capsule 40 mg PO DAILY metformin 500 mg tablet 500 mg PO BID haloperidol 5 mg tablet 5 mg PO BID atorvastatin 10 mg tablet 10 mg PO DAILY clozapine 100 mg tablet 100 mg PO DAILY amlodipine 5 mg tablet 5 mg PO DAILY pantoprazole 20 mg tablet,delayed release (DR/EC) 20 mg PO BID lorazepam 0.5 mg tablet 0.5 mg PO Q4H PRN (Reason: Anxiety) buspirone 10 mg tablet 10 mg PO BID benztropine 1 mg tablet 1 mg PO BID montelukast 10 mg tablet 10 mg PO DAILY zaleplon 5 mg capsule 5 mg PO BEDTIME albuterol sulfate 90 mcg/actuation HFA aerosol inhaler 2 puff inhalation Q6H PRN (Reason: Wheezing) fluphenazine HCl 5 mg tablet 5 mg PO BID prazosin 2 mg capsule 2 mg PO BID naproxen 500 mg tablet 500 mg PO BID mirtazapine 7.5 mg tablet 7.5 mg PO BEDTIME Trelegy Ellipta 200-62.5-25 mcg blister with device 1 ea inhalation DAILY famotidine 20 mg Tablet 20 mg PO TIDWM PRN (Reason: GERD) 30 Days Qty: 90 0RF Print Language: Thai
--- NOTE | 2024-07-14 22:40 | PC.NURSE ---
Called Poison control, and spoke with Jackie. Pt is known to them. Informed them what pt had taken, and the recommedation was to watch for 4-6, Acetaminophen, Salicyclic, CBC, CMP and EKG. Informed Dr Ryan, If pt was not having any GI systoms, pt could be cleared.
[2024-07-14 23:10] LABS: Venous Blood Gas Refer to POC result
[2024-07-14 23:10] LABS: MANUAL DIFF FLAG NO
[2024-07-14 23:11] LABS: VBG Base Excess 3.2 mmol/L; VBG HCO3 24 mmol/L (22-26); VBG pCO2 28 mmHg; VBG pH 7.54 (7.32-7.43); VBG pO2 152 mmHg
[2024-07-14 23:12] LABS: Basophils Percent Auto 0.5 % (0-2); Eosinophils Absolute Auto 0.4 X10*3/uL (0.0-0.4); Eosinophils Percent Auto 4.5 % (0-4); Hematocrit 36.1 % (37.0-47.0); Hemoglobin 12.3 g/dl (12.0-16.0); Imm Gran Abs Auto 0.06 X10*3/uL (0.00-0.03); Imm Gran Pct Auto 0.7 % (0.0-0.4); Lymphocytes Absolute Auto 1.6 X10*3/uL (1.2-4.9); Lymphocytes Percent Auto 18.3 % (20-40); Mean Corpuscular HGB Conc 34.1 g/dl (31.0-35.0); Mean Corpuscular Hemoglobin 31.5 pg (27.0-33.0); Mean Corpuscular Volume 92.6 fL (80.0-98.0); Mean Platelet Volume 9.1 fL (9.4-12.3); Monocytes Absolute Auto 0.7 X10*3/uL (0.1-1.2); Neutrophils Absolute Auto 5.9 x10*3/uL (2.0-8.3); Platelet Count 274 X10*3/uL (160-400); Red Cell Distribution Width 12.5 % (11.0-16.0); White Blood Count 8.7 X10*3/uL (4.8-10.8)
[2024-07-14 23:14] LABS: Appearance Urine Clear; Color Urine Yellow; Glucose Urine UA Negative (Negative); Leukocyte Esterase Urine Trace (Negative); Nitrite Urine Negative (Negative); PH 5.5 (5.0-9.0); Specific Gravity - Urine <= 1.005 (1.005-1.025); UMIC TRIGGER UACC YES; Urine Blood Large (3+) (Negative); Urine Ketones Negative (Negative); Urine Protein Negative (Neg-Trace)
[2024-07-14 23:17] LABS: Bacteria Urine None Seen (None Seen); Hyaline Casts Urine 0-2 /LPF (0-2); RBC Urine >20 /HPF (0-2); Squamous Epithelial Cell Urine 0-2 /HPF (0-2); WBC Urine 0-5 /HPF (0-5)
[2024-07-14 23:19] LABS: INTERNATIONAL NORM RATIO 0.9 (0.9-1.1); Prothrombin Time 10.8 SEC (10.9-12.4)
[2024-07-14 23:22] LABS: Amphetamine Screen Urine Not Detected (Not Detect); Barbiturates, Urine Not Detected (Not Detect); Benzodiazepines Screen Urine Not Detected (Not Detect); Buprenorphine Scr Not Detected (Not Detect); Cannabinoid Screen Urine Not Detected (Not Detect); Cocaine Screen Urine Not Detected (Not Detect); Fentanyl, urine Not Detected (Not Detect); Methadone Screen, Urine Not Detected (Not Detect); Opiate Screen Urine Not Detected (Not Detect); Oxycodone Screen Urine Not Detected (Not Detect); Phencyclidine Screen Urine Not Detected (Not Detect)
[2024-07-14 23:22] LABS: Ammonia 32 umol/L (13-55)
[2024-07-14 23:23] LABS: Lactic Acid 1.8 mmol/L (0.5-2.0)
[2024-07-14 23:26] LABS: Ethanol < 10 mg/dL
[2024-07-14 23:29] LABS: Alanine Aminotransferase 18 U/L (0-31); Albumin Level 4.3 g/dL (3.5-5.0); Alkaline Phosphatase 134 U/L (39-117); Anion Gap 14 (12-20); Aspartate Amino Transferase 18 U/L (5-31); Bilirubin Direct < 0.2 mg/dL (0.0-0.5); Bilirubin Total 0.2 mg/dL (0.0-1.0); Blood Urea Nitrogen 10 mg/dL (9-16); Calcium 9.1 mg/dL (8.4-10.2); Carbon Dioxide 22 mmol/L (22-29); Chloride 108 mmol/L (96-108); Creatinine Clr Calc Pharmacy 105.3; Estimated Glomerular Filt Rate > 60; Glucose Random 141 mg/dL (60-115); Lipase 19 U/L (8-78); Potassium 3.7 mmol/L (3.3-5.1); Sodium 140 mmol/L (135-145)
[2024-07-14 23:30] LABS: Acetaminophen LAB < 3 mcg/mL (<30); Salicylate < 5.0 mg/dL (15-30)
[2024-07-14 23:35] LABS: Troponin-I High Sensitivity < 2.7 ng/L (<3.5-17.0)
[2024-07-15] MEDS: Ondansetron ODT 4 MG TAB.RAPDIS TRANSLINGU (00:55)
--- NOTE | 2024-07-15 00:58 | PC.NURSE ---
pt c/o of stomach hurting. then she requests something to drink,
[2024-07-15 02:08] VITALS: BP 135/95; PULSE 102; RESP 18; TEMP 36.6; O2SAT 95
--- NOTE | 2024-07-15 02:27 | MHC.EDTECH ---
This tech took over care of patient at 0200AM,vitals completed,patient is drinking a cup of gingerale, belongings were completed by RN,and placed in closet/C5 sitter at bedside for safety
--- NOTE | 2024-07-15 03:14 | MHC.EDTECH ---
Repeat labs drawn at this time and sent to lab
[2024-07-15 03:29] LABS: Anion Gap 17 (12-20); Blood Urea Nitrogen 10 mg/dL (9-16); Calcium 9.1 mg/dL (8.4-10.2); Carbon Dioxide 21 mmol/L (22-29); Chloride 107 mmol/L (96-108); Creatinine Clr Calc Pharmacy 110.7; Estimated Glomerular Filt Rate > 60; Glucose Random 148 mg/dL (60-115); Potassium 3.5 mmol/L (3.3-5.1); Sodium 141 mmol/L (135-145)
[2024-07-15 03:31] LABS: Acetaminophen LAB < 3 mcg/mL (<30)
--- NOTE | 2024-07-15 04:18 | PC.NURSE ---
pt resting quietly, remains on 1:1 observation. no s/s of acute distress, chest rise and fall noted, plan of care ongoing
--- NOTE | 2024-07-15 04:29 | PC.NURSE ---
update given to poison control, pt is able to be cleared per poison control, dr jackson informed
[2024-07-15 04:48] VITALS: BP 128/67; PULSE 96; RESP 18; O2SAT 100
--- NOTE | 2024-07-15 05:17 | PC.NURSE ---
report given to the POD nurse, ok for pt to go to the POD
--- NOTE | 2024-07-15 05:20 | PC.NURSE ---
pt to the pod, amb with security, and tech.
--- NOTE | 2024-07-15 07:27 | PC.NURSE ---
Assumed care of patient at 0645, patient appears to be in no apparent distress this am, wandering around [facility] pod with steady gait, calm and cooperative. Pending care team at this time
--- NOTE | 2024-07-15 08:49 | PHA.MEDREC ---
Pharmacy Consult ? Medication Reconciliation Pharmacy has completed the medication reconciliation. Reviewed med rec done by nursing
[2024-07-15] MEDS: metFORMIN HCl 500 MG TABLET PO (09:04)
[2024-07-15 09:05] VITALS: BP 146/92
[2024-07-15] MEDS: amLODIPine Besylate 5 MG TABLET PO (09:05)
[2024-07-15] MEDS: Prazosin HCL 1 MG CAPSULE 2 MG PO (09:05)
[2024-07-15] MEDS: Atorvastatin Calcium 10 MG TABLET PO (09:05)
[2024-07-15] MEDS: FLUoxetine HCl 20 MG CAPSULE 40 MG PO (09:05)
[2024-07-15] MEDS: busPIRone HCl 10 MG TABLET PO (09:05)
[2024-07-15] MEDS: HaloperidoL 5 MG TABLET PO (09:05)
[2024-07-15] MEDS: Benztropine Mesylate 1 MG TABLET PO (09:05)
[2024-07-15 09:08] VITALS: BP 146/92; PULSE 103; RESP 16; O2SAT 97
[2024-07-15] MEDS: Montelukast Sodium 10 MG TABLET PO (09:09)
[2024-07-15] MEDS: fluPHENAZine HCl 5 MG TABLET PO (09:09)
[2024-07-15 09:42] VITALS: BP 134/90; PULSE 101; RESP 14; TEMP 36.7; O2SAT 97
== END 2024-07-15 09:43 | disposition home or self-care (01) ==
PROVIDERS: Emergency Medicine; Emergency Provider Emergency Medicine; PCP Nurse Practitioner Family
DX: T39.311A Poisoning by propionic acid derivatives, accidental (unintentional), initial encounter (principal); R11.0 Nausea; Y92.049 Unspecified place in boarding-house as the place of occurrence of the external cause; Z91.51 Personal history of suicidal behavior; R44.0 Auditory hallucinations; R00.0 Tachycardia, unspecified; R79.1 Abnormal coagulation profile; F33.2 Major depressive disorder, recurrent severe without psychotic features; F43.10 Post-traumatic stress disorder, unspecified; F60.3 Borderline personality disorder; E11.9 Type 2 diabetes mellitus without complications; E78.5 Hyperlipidemia, unspecified; K21.9 Gastro-esophageal reflux disease without esophagitis; F17.210 Nicotine dependence, cigarettes, uncomplicated; Z79.899 Other long term (current) drug therapy; Z79.84 Long term (current) use of oral hypoglycemic drugs; Z79.02 Long term (current) use of antithrombotics/antiplatelets
CPT/HCPCS: 36415; 80048; 80076; 80143; 80179; 80307; 81001; 82140; 82803; 83605; 83690; 83735; 84484; 85025; 85610; 93005; 99285; S9485

== ENCOUNTER 2024-07-15 12:28 | Outpatient (REF) | payer MEDICARE, MEDICAID, SELFPAY ==
[2024-07-15 12:43] LABS: MANUAL DIFF FLAG NO
[2024-07-15 12:48] LABS: Basophils Percent Auto 0.6 % (0-2); Eosinophils Absolute Auto 0.3 X10*3/uL (0.0-0.4); Eosinophils Percent Auto 5.1 % (0-4); Hematocrit 36.3 % (37.0-47.0); Hemoglobin 12.3 g/dl (12.0-16.0); Imm Gran Abs Auto 0.05 X10*3/uL (0.00-0.03); Imm Gran Pct Auto 0.8 % (0.0-0.4); Lymphocytes Absolute Auto 1.4 X10*3/uL (1.2-4.9); Lymphocytes Percent Auto 21.8 % (20-40); Mean Corpuscular HGB Conc 33.9 g/dl (31.0-35.0); Mean Corpuscular Hemoglobin 31.2 pg (27.0-33.0); Mean Corpuscular Volume 92.1 fL (80.0-98.0); Mean Platelet Volume 9.1 fL (9.4-12.3); Monocytes Absolute Auto 0.6 X10*3/uL (0.1-1.2); Monocytes Percent Auto 9.1 % (2-11); Neut%MD 62.6 %; Neutrophils Absolute Auto 4.1 x10*3/uL (2.0-8.3); Neutrophils Percent Auto 62.6 % (45-73); Platelet Count 266 X10*3/uL (160-400); Red Blood Count 3.94 X10*6/uL (4.20-5.50); Red Cell Distribution Width 12.5 % (11.0-16.0); WBCANC 6.5 X10*3/uL; White Blood Count 6.5 X10*3/uL (4.8-10.8)
== END 2024-07-15 12:29 | disposition home or self-care (01) ==
LOC: HO.LAB 12:28
PROVIDERS: Visit Provider Psychiatry & Neurology Psychiatry
DX: Z79.899 Other long term (current) drug therapy (principal)
CPT/HCPCS: 36415; 85025

== ENCOUNTER 2024-07-19 20:23 | Emergency (ER) | payer MEDICARE, MEDICAID, SELFPAY ==
[2024-07-19 20:28] VITALS: BMI 45.0
[2024-07-19 20:46] VITALS: BP 149/82; PULSE 106; RESP 16; TEMP 36.3; O2SAT 96
[2024-07-19 21:23] LABS: MANUAL DIFF FLAG NO
[2024-07-19 21:25] LABS: Basophils Percent Auto 0.7 % (0-2); Eosinophils Absolute Auto 0.1 X10*3/uL (0.0-0.4); Eosinophils Percent Auto 3.1 % (0-4); Hematocrit 36.7 % (37.0-47.0); Hemoglobin 12.3 g/dl (12.0-16.0); Imm Gran Abs Auto 0.05 X10*3/uL (0.00-0.03); Imm Gran Pct Auto 1.2 % (0.0-0.4); Lymphocytes Absolute Auto 0.9 X10*3/uL (1.2-4.9); Lymphocytes Percent Auto 22.2 % (20-40); Mean Corpuscular HGB Conc 33.5 g/dl (31.0-35.0); Mean Corpuscular Hemoglobin 31.1 pg (27.0-33.0); Mean Corpuscular Volume 92.9 fL (80.0-98.0); Monocytes Absolute Auto 0.7 X10*3/uL (0.1-1.2); Monocytes Percent Auto 17.3 % (2-11); Neutrophils Absolute Auto 2.4 x10*3/uL (2.0-8.3); Neutrophils Percent Auto 55.5 % (45-73); Platelet Count 232 X10*3/uL (160-400); Red Blood Count 3.95 X10*6/uL (4.20-5.50); Red Cell Distribution Width 12.5 % (11.0-16.0); White Blood Count 4.2 X10*3/uL (4.8-10.8)
[2024-07-19 21:40] LABS: Alanine Aminotransferase 22 U/L (0-31); Albumin Level 4.1 g/dL (3.5-5.0); Alkaline Phosphatase 117 U/L (39-117); Anion Gap 14 (12-20); Aspartate Amino Transferase 20 U/L (5-31); Bilirubin Total 0.3 mg/dL (0.0-1.0); Blood Urea Nitrogen 12 mg/dL (9-16); Carbon Dioxide 23 mmol/L (22-29); Chloride 107 mmol/L (96-108); Creatinine Clr Calc Pharmacy 102.5; Estimated Glomerular Filt Rate > 60; Ethanol < 10 mg/dL; Glucose Random 159 mg/dL (60-115); Potassium 3.6 mmol/L (3.3-5.1); Sodium 140 mmol/L (135-145); Total Protein 6.7 g/dL (6.5-8.0)
[2024-07-19 22:00] LABS: Appearance Urine Clear; Color Urine Yellow; Glucose Urine UA Negative (Negative); Leukocyte Esterase Urine Negative (Negative); Nitrite Urine Negative (Negative); Urine Blood Negative (Negative); Urine Ketones Negative (Negative); Urine Protein Negative (Neg-Trace)
[2024-07-19 22:08] LABS: Amphetamine Screen Urine Not Detected (Not Detect); Barbiturates, Urine Not Detected (Not Detect); Benzodiazepines Screen Urine Not Detected (Not Detect); Buprenorphine Scr Not Detected (Not Detect); Cannabinoid Screen Urine Not Detected (Not Detect); Cocaine Screen Urine Not Detected (Not Detect); Fentanyl, urine Not Detected (Not Detect); Methadone Screen, Urine Not Detected (Not Detect); Opiate Screen Urine Not Detected (Not Detect); Oxycodone Screen Urine Not Detected (Not Detect); Phencyclidine Screen Urine Not Detected (Not Detect)
--- NOTE | 2024-07-19 23:00 | ED_ITS ---
HPI - Psych General Chief Complaint: Psychiatric Symptoms Stated Complaint: si Time Seen by Provider: 07/19/24 22:59 Source: patient Mode of arrival: EMS Limitations: no limitations History of Present Illness ED Provider: gem KIRBY Narrative: Patient with PTSD bipolar disorder borderline personality been here multiple times for multiple reasons comes here if as she is hearing voices to kill herself [employer] your cousin suicide years ago arrival. Feeling better at the time of my evaluation patient denies any suicidal ideation patient called [facility] and they asked her to call them back but she never called them instead she called EMS Related Data Home Medications ?Medication ?Instructions ?Recorded ?Confirmed albuterol sulfate 90 mcg/actuation 2 puff inhalation Q6H PRN Wheezing 06/24/24 07/15/24 aerosol inhaler amlodipine 5 mg tablet 5 mg PO DAILY 06/24/24 07/15/24 atorvastatin 10 mg tablet 10 mg PO DAILY 06/24/24 07/15/24 benztropine 1 mg tablet 1 mg PO BID 06/24/24 07/15/24 buspirone 10 mg tablet 10 mg PO BID 06/24/24 07/15/24 clozapine 100 mg tablet 100 mg PO DAILY 06/24/24 07/15/24 fluoxetine 40 mg capsule 40 mg PO DAILY 06/24/24 07/15/24 fluphenazine HCl 5 mg tablet 5 mg PO BID 06/24/24 07/15/24 haloperidol 5 mg tablet 5 mg PO BID 06/24/24 07/15/24 lorazepam 0.5 mg tablet 0.5 mg PO Q4H PRN Anxiety 06/24/24 07/15/24 mirtazapine 7.5 mg tablet 7.5 mg PO BEDTIME 06/24/24 07/15/24 montelukast 10 mg tablet 10 mg PO DAILY 06/24/24 07/15/24 pantoprazole 20 mg tablet,delayed 20 mg PO BID 06/24/24 07/15/24 release prazosin 2 mg capsule 2 mg PO BID 06/24/24 07/15/24 metformin 500 mg tablet 500 mg PO BID 07/15/24 07/15/24 zaleplon 5 mg capsule 5 mg PO BEDTIME 07/15/24 07/15/24 Previous Rx's ?Medication ?Instructions ?Recorded famotidine 20 mg tablet 20 mg PO TIDWM PRN GERD 30 days 06/27/24 #90 tabs Allergies Allergy/AdvReac Type Severity Reaction Status Date / Time azithromycin [AZITHROMYCIN] Allergy Severe Rash Verified 07/19/24 20:41 Fish Containing Products Allergy Severe Anaphylaxis Verified 07/19/24 20:41 codeine [Codeine] Allergy Intermediate Rash Verified 07/19/24 20:41 Penicillins Allergy Intermediate Rash Verified 07/19/24 20:41 prednisone [Prednisone] Allergy Intermediate Rash Verified 07/19/24 20:41 Sulfa (Sulfonamide Allergy Intermediate Rash Verified 07/19/24 20:41 Antibiotics) [Sulfa (Sulfonamides)] ziprasidone [From Geodon] Allergy Intermediate dysuria, Verified 07/19/24 20:41 rash lithium Allergy Rash Verified 07/19/24 20:41 Review of Systems 2 Review of Systems: Yes all other systems are reviewed and are negative PMFSH Past Medical History Medical History Asthma Suicidal ideation MDD (major depressive disorder), recurrent episode, severe Chest pain Acute anxiety COVID-19 Full body hives Major depression Dizziness Suicide attempt UTI (urinary tract infection) Acetaminophen overdose COVID History of attempted suicide History of non-suicidal self-harm Hypomagnesemia Suicide attempt Suicide attempt by acetaminophen overdose Acetaminophen overdose Depression Diabetes type 2, controlled Borderline personality disorder PTSD (post-traumatic stress disorder) Overdose GERD (gastroesophageal reflux disease) Mood disorder Hyperlipidemia Bronchitis Social History Social History Household Members: Other Household Members Other:: residential Housing: Other Housing Other:: [facility] Do you presently have visiting nurse or other home services: No Unable to assess alcohol history related to: Unknown Alcohol intake: never Comment: sitter in room Patient Tobacco Use Status: Current everyday Tobacco user Tobacco use type: Cigarette Cigarette Packs Per Day: 1 Cigarettes Per Day: 20.0 Years Smoked: 22 e-Cigarette/Vaping Use: Currently Using Second Hand Smoke Exposure: No Substance Use Type: Caffiene Advance Directives: No Advance Directives Information Provided: No Do you have a plan to hurt others: No Plan service: No Current occupational status: unemployed and disabled Sexual orientation: Straight/Heterosexual Physical Exam 2 Vital Signs: Vital Signs: Last Vital Signs Temp 97.4 F 07/19/24 20:46 Pulse 106 H 07/19/24 20:46 Resp 16 07/19/24 20:46 BP 149/82 H 07/19/24 20:46 Pulse Ox 96 07/19/24 20:46 O2 Del Method Room Air 07/19/24 20:46 BMI result Body Mass Index 45.0 Appearance: Alert. Oriented X3. No acute distress. Eyes: PERRLA, No Nystagmus ENT: Pharynx normal. Oral Mucosa moist Neck: Normal inspection. Neck supple. CVS: Normal heart rate and rhythm. Pulses normal. Respiratory: No respiratory distress. Equal air entry bilateral, no wheezing/rales/rhonchi Abdomen: Soft and nontender. Bowel sounds are present, no mass palpable, no CVA tenderness Skin: Skin warm and dry. Normal skin color. Normal skin turgor. Extremities: No lower extremity edema. No calf tenderness psych; mood stable denied any SI HI at this time Neuro: Oriented X 3. No motor deficit. No sensory deficit.No cerebellar signs , cranial nerves II-XII intact Medical Decision Making Lab Data 07/19/24 21:19 07/19/24 21:19 Labs: Lab Results 07/19/24 07/19/24 Range/Units 21:19 21:49 WBC 4.2 L (4.8-10.8) X10*3/uL RBC 3.95 L (4.20-5.50) X10*6/uL Hgb 12.3 (12.0-16.0) g/dl Hct 36.7 L (37.0-47.0) % MCV 92.9 (80.0-98.0) fL MCH 31.1 (27.0-33.0) pg MCHC 33.5 (31.0-35.0) g/dl RDW 12.5 (11.0-16.0) % Plt Count 232 (160-400) X10*3/uL MPV 9.0 L (9.4-12.3) fL Immature Gran % (Auto) 1.2 H (0.0-0.4) % Neut % (Auto) 55.5 (45-73) % Lymph % (Auto) 22.2 (20-40) % [place] % (Auto) 17.3 H (2-11) % Eos % (Auto) 3.1 (0-4) % Baso % (Auto) 0.7 (0-2) % Lymph # (Auto) 0.9 L (1.2-4.9) X10*3/uL [place] # (Auto) 0.7 (0.1-1.2) X10*3/uL Eos # (Auto) 0.1 (0.0-0.4) X10*3/uL Baso # (Auto) 0.0 (0.0-0.2) X10*3/uL Abs Immat Gran (auto) 0.05 H (0.00-0.03) X10*3/uL Absolute Neuts (auto) 2.4 (2.0-8.3) x10*3/uL Absolute Nucleated RBC 0.000 (0.0-0.012) X10*3/uL Nucleated RBC % (auto) 0.0 (0.0-0.2) /100WBC Sodium 140 (135-145) mmol/L Potassium 3.6 (3.3-5.1) mmol/L Chloride 107 (96-108) mmol/L Carbon Dioxide 23 (22-29) mmol/L Anion Gap 14 (12-20) BUN 12 (9-16) mg/dL Creatinine 0.87 (0.5-1.4) mg/dL Estim Creat Clear Calc 102.5 Estimated GFR > 60 Random Glucose 159 H (60-115) mg/dL Calcium 9.0 (8.4-10.2) mg/dL Total Bilirubin 0.3 (0.0-1.0) mg/dL AST 20 (5-31) U/L ALT 22 (0-31) U/L Alkaline Phosphatase 117 (39-117) U/L Total Protein 6.7 (6.5-8.0) g/dL Albumin 4.1 (3.5-5.0) g/dL Urine Color Yellow Urine Appearance Clear Urine pH 6.0 (5.0-9.0) Ur Specific [place] 1.010 (1.005-1.025) Urine Protein Negative (Neg-Trace) mg/dL Urine Glucose (UA) Negative (Negative) mg/dL Urine Ketones Negative (Negative) mg/dL Urine Blood Negative (Negative) Urine Nitrite Negative (Negative) Ur Leukocyte Esterase Negative (Negative) Urine Opiates Screen Not Detected (Not Detect) Ur Buprenorphine Scrn Not Detected (Not Detect) ng/mL Ur Oxycodone Screen Not Detected (Not Detect) ng/mL Urine Methadone Screen Not Detected (Not Detect) ng/mL Urine Fentanyl Screen Not Detected (Not Detect) Ur Barbiturates Screen Not Detected (Not Detect) Ur Phencyclidine Scrn Not Detected (Not Detect) Ur Amphetamines Screen Not Detected (Not Detect) U Benzodiazepines Scrn Not Detected (Not Detect) Urine Cocaine Screen Not Detected (Not Detect) U Marijuana (THC) Screen Not Detected (Not Detect) Ethyl Alcohol < 10 mg/dL Discharge Plan Discharge Clinical Impression: Depression with suicidal ideation, Borderline personality disorder Patient Disposition: Still a Patient Prescriptions: No Action fluoxetine 40 mg capsule 40 mg PO DAILY haloperidol 5 mg tablet 5 mg PO BID atorvastatin 10 mg tablet 10 mg PO DAILY clozapine 100 mg tablet 100 mg PO DAILY amlodipine 5 mg tablet 5 mg PO DAILY pantoprazole 20 mg tablet,delayed release (DR/EC) 20 mg PO BID lorazepam 0.5 mg tablet 0.5 mg PO Q4H PRN (Reason: Anxiety) buspirone 10 mg tablet 10 mg PO BID benztropine 1 mg tablet 1 mg PO BID montelukast 10 mg tablet 10 mg PO DAILY albuterol sulfate 90 mcg/actuation HFA aerosol inhaler 2 puff inhalation Q6H PRN (Reason: Wheezing) fluphenazine HCl 5 mg tablet 5 mg PO BID prazosin 2 mg capsule 2 mg PO BID mirtazapine 7.5 mg tablet 7.5 mg PO BEDTIME famotidine 20 mg Tablet 20 mg PO TIDWM PRN (Reason: GERD) 30 Days Qty: 90 0RF metformin 500 mg tablet 500 mg PO BID zaleplon 5 mg capsule 5 mg PO BEDTIME Print Language: Maltese
[2024-07-20 05:48] VITALS: BP 156/100; PULSE 99; RESP 16; TEMP 36.8; O2SAT 94
--- NOTE | 2024-07-20 09:55 | PC.NURSE ---
med rec completed with pharmacy fill list and confirmation by patient
[2024-07-20 10:36] VITALS: BP 147/92; PULSE 93; RESP 16; TEMP 36.3; O2SAT 94
[2024-07-20 10:37] VITALS: BP 147/92; PULSE 93; RESP 16; TEMP 36.3; O2SAT 94
--- NOTE | 2024-07-20 12:24 | MHC.CARE ---
Addendum entered by Aleena Rivers MA 07/20/24 12:51: Clinician called [facility] and they confirmed they received request for 3 day follow up. Original Note: Pt seen by CARE team and discharged back to community providers and correction setting. Pt was referred to [facility] for three day follow up and checks in as needed. ED provider was consulted with and agreed with disposition.
--- NOTE | 2024-07-20 16:15 | MHC.CARE ---
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 and she will check in with her. She reports she fears if she continues to come to ED she will get kicked out her new custodial. Clinician validated her feelings and encouraged her to call [facility] and she reports she will. Clinician called [facility] and they report they will check in with patient later this evening.
== END 2024-07-20 10:55 | disposition home or self-care (01) ==
PROVIDERS: Emergency Provider Internal Medicine
DX: F33.2 Major depressive disorder, recurrent severe without psychotic features (principal); R45.851 Suicidal ideations; F60.3 Borderline personality disorder; R44.0 Auditory hallucinations; F43.10 Post-traumatic stress disorder, unspecified; E78.5 Hyperlipidemia, unspecified; E11.9 Type 2 diabetes mellitus without complications; J45.909 Unspecified asthma, uncomplicated; F17.210 Nicotine dependence, cigarettes, uncomplicated; Z91.51 Personal history of suicidal behavior; Z79.84 Long term (current) use of oral hypoglycemic drugs; Z79.899 Other long term (current) drug therapy; Z79.02 Long term (current) use of antithrombotics/antiplatelets
CPT/HCPCS: 36415; 80053; 80307; 81003; 85025; 99284; 99285; S9485

== ENCOUNTER 2024-07-21 12:41 | Emergency (ER) | payer MEDICARE, MEDICAID, SELFPAY ==
[2024-07-21 12:54] VITALS: BP 117/80; PULSE 63; RESP 16; TEMP 36.6; O2SAT 97; BMI 42.7
--- NOTE | 2024-07-21 12:57 | ED_ITS ---
HPI - Psych General Chief Complaint: Psychiatric Symptoms Stated Complaint: SI,HEARING VOICES FROM [facility] PER EMS Source: patient, EMS and old records reviewed Mode of arrival: EMS Limitations: no limitations History of Present Illness ED Provider: LILIA HPI Narrative: 48 yo female with PMH of DM, GERD, HLD, PTSD, BPD here with c/o SI and depression as tomorrow is anniversary of trauma event for her. She states she is not handling it well. She denies hurting herself or overdosing at this time. MD complaint: suicidal ideation and feels depressed Onset (ago): day(s) Duration: intermittent History of same: Yes Relieving factors: none Exacerbating factors: other Context: significant life stressor Associated psychiatric symptoms: depression and suicidal ideation Associated symptoms: denies other symptoms Treatments prior to arrival: none If self harm: admits thoughts of self harm and has plan Related Data Home Medications ?Medication ?Instructions ?Recorded ?Confirmed albuterol sulfate 90 mcg/actuation 2 puff inhalation Q6H PRN Wheezing 06/24/24 07/20/24 aerosol inhaler amlodipine 5 mg tablet 5 mg PO DAILY 06/24/24 07/20/24 atorvastatin 10 mg tablet 10 mg PO DAILY 06/24/24 07/20/24 benztropine 1 mg tablet 1 mg PO BID 06/24/24 07/20/24 buspirone 10 mg tablet 10 mg PO BID 06/24/24 07/20/24 clozapine 100 mg tablet 100 mg PO DAILY 06/24/24 07/20/24 fluoxetine 40 mg capsule 40 mg PO DAILY 06/24/24 07/20/24 fluphenazine HCl 5 mg tablet 5 mg PO BID 06/24/24 07/20/24 haloperidol 5 mg tablet 5 mg PO BID 06/24/24 07/20/24 lorazepam 0.5 mg tablet 0.5 mg PO Q4H PRN Anxiety 06/24/24 07/20/24 mirtazapine 7.5 mg tablet 7.5 mg PO BEDTIME 06/24/24 07/20/24 montelukast 10 mg tablet 10 mg PO DAILY 06/24/24 07/20/24 pantoprazole 20 mg tablet,delayed 20 mg PO BID 06/24/24 07/20/24 release prazosin 2 mg capsule 2 mg PO BID 06/24/24 07/20/24 metformin 500 mg tablet 500 mg PO BID 07/15/24 07/20/24 zaleplon 5 mg capsule 5 mg PO BEDTIME 07/15/24 07/20/24 Previous Rx's ?Medication ?Instructions ?Recorded famotidine 20 mg tablet 20 mg PO TIDWM PRN GERD 30 days 06/27/24 #90 tabs Allergies Allergy/AdvReac Type Severity Reaction Status Date / Time azithromycin [AZITHROMYCIN] Allergy Severe Rash Verified 07/21/24 13:03 Fish Containing Products Allergy Severe Anaphylaxis Verified 07/21/24 13:03 codeine [Codeine] Allergy Intermediate Rash Verified 07/21/24 13:03 Penicillins Allergy Intermediate Rash Verified 07/21/24 13:03 prednisone [Prednisone] Allergy Intermediate Rash Verified 07/21/24 13:03 Sulfa (Sulfonamide Allergy Intermediate Rash Verified 07/21/24 13:03 Antibiotics) [Sulfa (Sulfonamides)] ziprasidone [From Geodon] Allergy Intermediate dysuria, Verified 07/21/24 13:03 rash lithium Allergy Rash Verified 07/21/24 13:03 Review of Systems 2 Review of Systems: Constitutional : No Fever, No Chills ENT/Mouth : No Ear Pain, No Nasal Congestion, No sore throat Eyes: No Eye Pain, No Swelling, No Redness Cardiovascular : No Chest Pain, No SOB Respiratory : No Cough, No Sputum, No Dyspnea Gastrointestinal : No Nausea, No Vomiting, No Diarrhea, No Hematochezia, No Melena Genitourinary : No Dysuria, No Urinary Frequency, No Hematuria Musculoskeletal : No Myalgias Skin : No Skin Lesions, No rash Neuro : No Weakness, No Numbness, No Paresthesias, No Dizziness, No Headache Psych : positive Anxiety, positive Depression, positive SI no HI Heme/Lymph: No Lymphadenopathy Endocrine : No Polyuria, No Polydipsia All other systems reviewed and are negative PMFSH Past Medical History Attestation statement: The following information was validated with the patient. Source: old records reviewed Medical History Asthma Suicidal ideation MDD (major depressive disorder), recurrent episode, severe Chest pain Acute anxiety COVID-19 Full body hives Major depression Dizziness Suicide attempt UTI (urinary tract infection) Acetaminophen overdose COVID History of attempted suicide History of non-suicidal self-harm Hypomagnesemia Suicide attempt Suicide attempt by acetaminophen overdose Acetaminophen overdose Depression Diabetes type 2, controlled Borderline personality disorder PTSD (post-traumatic stress disorder) Overdose GERD (gastroesophageal reflux disease) Mood disorder Hyperlipidemia Bronchitis Social History Social History Household Members: Other Household Members Other:: senior living Housing: Other Housing Other:: custodial [facility] Do you presently have visiting nurse or other home services: No Unable to assess alcohol history related to: Unknown Alcohol intake: never Comment: sitter in room Patient Tobacco Use Status: Current everyday Tobacco user Tobacco use type: Cigarette Cigarette Packs Per Day: 1 Cigarettes Per Day: 20.0 Years Smoked: 22 e-Cigarette/Vaping Use: Currently Using Second Hand Smoke Exposure: No Substance Use Type: Caffiene Advance Directives: No Advance Directives Information Provided: Yes service: No Current occupational status: unemployed and disabled Sexual orientation: Straight/Heterosexual Physical Exam 2 Vital Signs: Vital Signs: Last Vital Signs Temp 98.2 F 07/21/24 15:46 Pulse 95 07/21/24 15:46 Resp 18 07/21/24 15:46 BP 128/76 07/21/24 15:46 Pulse Ox 96 07/21/24 15:46 O2 Del Method Room Air 07/21/24 15:46 BMI result Body Mass Index 42.7 Appearance: Alert. Oriented X3. No acute distress. Eyes: Pupils equal, round and reactive to light. ENT: Pharynx normal. Neck: Normal inspection. Neck supple. CVS: Normal heart rate and rhythm. Pulses normal. Respiratory: No respiratory distress. Breath sounds normal. Abdomen: Soft and nontender. Skin: Skin warm and dry. Normal skin color. Normal skin turgor. Extremities: No lower extremity edema. No calf ttp Neuro: Oriented X 3. No motor deficit. No sensory deficit. Cn2-12 intact Medications Administered Discontinued Medications Generic Name Dose Route Start Last Admin Trade Name Freq PRN Reason Stop Dose Admin Lorazepam 1 mg 07/21/24 13:26 07/21/24 13:30 Lorazepam 1 Mg Tablet PO 07/21/24 13:27 1 mg ONCE ONE Administration Medical Decision Making Medical Decision Making MDM Narrative: 48 yo female with PMH of DM, GERD, HLD, PTSD, BPD here with c/o SI and depression in setting of prior trauma. She will need labs and CARE team consult Differential Diagnosis Differential Diagnoses: The differential diagnosis associated with the presentation includes PTSD, chronic SI Admission/Observation Consideration of admission/observation: Escalation of care including admission/observation considered physician observation started at 1259pm pending CARE team Consult Healthcare Provider Management of the patient was discussed with: Behavioral Health Provider Lab Data MDM Lab Attestation statement: I reviewed the patient's lab results. 07/21/24 14:31 07/21/24 14:31 Labs: Lab Results 07/21/24 Range/Units 14:31 WBC 5.4 (4.8-10.8) X10*3/uL RBC 4.02 L (4.20-5.50) X10*6/uL Hgb 12.8 (12.0-16.0) g/dl Hct 37.5 (37.0-47.0) % MCV 93.3 (80.0-98.0) fL MCH 31.8 (27.0-33.0) pg MCHC 34.1 (31.0-35.0) g/dl RDW 12.8 (11.0-16.0) % Plt Count 256 (160-400) X10*3/uL MPV 9.2 L (9.4-12.3) fL Immature Gran % (Auto) 0.7 H (0.0-0.4) % Neut % (Auto) 69.8 (45-73) % Lymph % (Auto) 17.5 L (20-40) % [place] % (Auto) 7.9 (2-11) % Eos % (Auto) 3.9 (0-4) % Baso % (Auto) 0.2 (0-2) % Lymph # (Auto) 1.0 L (1.2-4.9) X10*3/uL [place] # (Auto) 0.4 (0.1-1.2) X10*3/uL Eos # (Auto) 0.2 (0.0-0.4) X10*3/uL Baso # (Auto) 0.0 (0.0-0.2) X10*3/uL Abs Immat Gran (auto) 0.04 H (0.00-0.03) X10*3/uL Absolute Neuts (auto) 3.8 (2.0-8.3) x10*3/uL Absolute Nucleated RBC 0.000 (0.0-0.012) X10*3/uL Nucleated RBC % (auto) 0.0 (0.0-0.2) /100WBC Sodium 140 (135-145) mmol/L Potassium 3.8 (3.3-5.1) mmol/L Chloride 106 (96-108) mmol/L Carbon Dioxide 22 (22-29) mmol/L Anion Gap 16 (12-20) BUN 11 (9-16) mg/dL Creatinine 0.83 (0.5-1.4) mg/dL Estim Creat Clear Calc 100.5 Estimated GFR > 60 Random Glucose 165 H (60-115) mg/dL Calcium 9.5 (8.4-10.2) mg/dL Total Bilirubin 0.4 (0.0-1.0) mg/dL Direct Bilirubin 0.1 (0.0-0.5) mg/dL AST 22 (5-31) U/L ALT 22 (0-31) U/L Alkaline Phosphatase 119 H (39-117) U/L Total Protein 7.0 (6.5-8.0) g/dL Albumin 4.3 (3.5-5.0) g/dL Independent Historian Clinical information obtained from an independent historian. History obtained from or confirmed by: EMS External Record Review External record reviewed: Inpatient record Discharge Plan Discharge Clinical Impression: PTSD (post-traumatic stress disorder) Patient Disposition: Still a Patient Instructions: Post Traumatic Stress Disorder (ED) Prescriptions: No Action fluoxetine 40 mg capsule 40 mg PO DAILY haloperidol 5 mg tablet 5 mg PO BID atorvastatin 10 mg tablet 10 mg PO DAILY clozapine 100 mg tablet 100 mg PO DAILY amlodipine 5 mg tablet 5 mg PO DAILY pantoprazole 20 mg tablet,delayed release (DR/EC) 20 mg PO BID lorazepam 0.5 mg tablet 0.5 mg PO Q4H PRN (Reason: Anxiety) buspirone 10 mg tablet 10 mg PO BID benztropine 1 mg tablet 1 mg PO BID montelukast 10 mg tablet 10 mg PO DAILY albuterol sulfate 90 mcg/actuation HFA aerosol inhaler 2 puff inhalation Q6H PRN (Reason: Wheezing) fluphenazine HCl 5 mg tablet 5 mg PO BID prazosin 2 mg capsule 2 mg PO BID mirtazapine 7.5 mg tablet 7.5 mg PO BEDTIME famotidine 20 mg Tablet 20 mg PO TIDWM PRN (Reason: GERD) 30 Days Qty: 90 0RF metformin 500 mg tablet 500 mg PO BID zaleplon 5 mg capsule 5 mg PO BEDTIME Print Language: Macedonian
[2024-07-21] MEDS: LORazepam 1 MG TABLET PO (13:30)
[2024-07-21 14:35] LABS: MANUAL DIFF FLAG NO
[2024-07-21 14:36] LABS: Basophils Percent Auto 0.2 % (0-2); Eosinophils Absolute Auto 0.2 X10*3/uL (0.0-0.4); Eosinophils Percent Auto 3.9 % (0-4); Hematocrit 37.5 % (37.0-47.0); Hemoglobin 12.8 g/dl (12.0-16.0); Imm Gran Abs Auto 0.04 X10*3/uL (0.00-0.03); Imm Gran Pct Auto 0.7 % (0.0-0.4); Lymphocytes Percent Auto 17.5 % (20-40); Mean Corpuscular HGB Conc 34.1 g/dl (31.0-35.0); Mean Corpuscular Hemoglobin 31.8 pg (27.0-33.0); Mean Corpuscular Volume 93.3 fL (80.0-98.0); Mean Platelet Volume 9.2 fL (9.4-12.3); Monocytes Absolute Auto 0.4 X10*3/uL (0.1-1.2); Monocytes Percent Auto 7.9 % (2-11); Neutrophils Absolute Auto 3.8 x10*3/uL (2.0-8.3); Neutrophils Percent Auto 69.8 % (45-73); Platelet Count 256 X10*3/uL (160-400); Red Blood Count 4.02 X10*6/uL (4.20-5.50); Red Cell Distribution Width 12.8 % (11.0-16.0); White Blood Count 5.4 X10*3/uL (4.8-10.8)
[2024-07-21 14:52] LABS: Alanine Aminotransferase 22 U/L (0-31); Albumin Level 4.3 g/dL (3.5-5.0); Alkaline Phosphatase 119 U/L (39-117); Anion Gap 16 (12-20); Aspartate Amino Transferase 22 U/L (5-31); Bilirubin Direct 0.1 mg/dL (0.0-0.5); Bilirubin Total 0.4 mg/dL (0.0-1.0); Blood Urea Nitrogen 11 mg/dL (9-16); Calcium 9.5 mg/dL (8.4-10.2); Carbon Dioxide 22 mmol/L (22-29); Chloride 106 mmol/L (96-108); Creatinine Clr Calc Pharmacy 100.5; Estimated Glomerular Filt Rate > 60; Glucose Random 165 mg/dL (60-115); Potassium 3.8 mmol/L (3.3-5.1); Sodium 140 mmol/L (135-145)
--- NOTE | 2024-07-21 15:12 | PC.NURSE ---
CARE TEAM AT THE BEDSIDE FOR ASSESSMENT
[2024-07-21 15:46] VITALS: BP 128/76; PULSE 95; RESP 18; TEMP 36.8; O2SAT 96
--- NOTE | 2024-07-21 16:34 | MHC.CARE ---
Patient evaluated by the CARE Team, she does not require an inpatient psychiatric admission at this time. ED provider, Dr. Hernandez updated
[2024-07-21 17:04] VITALS: BP 119/75; PULSE 74; RESP 16; TEMP 36.6; O2SAT 96
== END 2024-07-21 17:08 | disposition home or self-care (01) ==
PROVIDERS: Emergency Provider Emergency Medicine
DX: F43.10 Post-traumatic stress disorder, unspecified (principal); R45.851 Suicidal ideations; F32.A Depression, unspecified; E11.9 Type 2 diabetes mellitus without complications; E78.5 Hyperlipidemia, unspecified; F17.210 Nicotine dependence, cigarettes, uncomplicated; Z79.02 Long term (current) use of antithrombotics/antiplatelets; Z79.899 Other long term (current) drug therapy; Z79.84 Long term (current) use of oral hypoglycemic drugs
CPT/HCPCS: 36415; 80048; 80076; 85025; 99283; S9485

== ENCOUNTER 2024-07-21 20:09 | Emergency (ER) | payer MEDICARE, MEDICAID, SELFPAY ==
[2024-07-21 20:22] VITALS: BMI 42.2
[2024-07-21 22:20] VITALS: BP 151/95; PULSE 111; RESP 17; TEMP 36.9; O2SAT 95
--- NOTE | 2024-07-21 22:24 | ED.PSYCH ---
HPI - Psych General Chief Complaint: Psychiatric Symptoms Stated Complaint: psych Time Seen by Provider: 07/21/24 20:16 Source: patient and EMS Mode of arrival: EMS Limitations: no limitations History of Present Illness ED Provider: Dr. Eileen Ryan HPI Narrative: Patient comes to the emergency room via ambulance for the 2nd time today. Patient states that she is hearing voices telling her to cut herself. Patient states that her cousin's anniversary is today and wants to . Also, patient complaining of a juice infection in the abdominal folds it patient states that she has been using nystatin powder without any significant improvement. Patient denies trying to hurt herself prior to arrival the 2nd time Related Data Home Medications ?Medication ?Instructions ?Recorded ?Confirmed albuterol sulfate 90 mcg/actuation 2 puff inhalation Q6H PRN Wheezing 06/24/24 07/21/24 aerosol inhaler amlodipine 5 mg tablet 5 mg PO DAILY 06/24/24 07/21/24 atorvastatin 10 mg tablet 10 mg PO DAILY 06/24/24 07/21/24 benztropine 1 mg tablet 1 mg PO BID 06/24/24 07/21/24 buspirone 10 mg tablet 10 mg PO BID 06/24/24 07/21/24 clozapine 100 mg tablet 100 mg PO BEDTIME 06/24/24 07/21/24 fluoxetine 40 mg capsule 40 mg PO DAILY 06/24/24 07/21/24 fluphenazine HCl 5 mg tablet 5 mg PO BID 06/24/24 07/21/24 haloperidol 5 mg tablet 5 mg PO BID 06/24/24 07/21/24 lorazepam 0.5 mg tablet 0.5 mg PO Q4H PRN Anxiety 06/24/24 07/21/24 mirtazapine 7.5 mg tablet 7.5 mg PO BEDTIME 06/24/24 07/21/24 montelukast 10 mg tablet 10 mg PO DAILY 06/24/24 07/21/24 pantoprazole 20 mg tablet,delayed 20 mg PO BID 06/24/24 07/21/24 release prazosin 2 mg capsule 2 mg PO BID 06/24/24 07/21/24 metformin 500 mg tablet 500 mg PO BID 07/15/24 07/21/24 zaleplon 5 mg capsule 5 mg PO BEDTIME 07/15/24 07/21/24 Previous Rx's ?Medication ?Instructions ?Recorded famotidine 20 mg tablet 20 mg PO TIDWM PRN GERD 30 days 06/27/24 #90 tabs miconazole nitrate 2 % topical 1 appl topical BID #85 grams 07/22/24 powder (Athlete's Foot) Allergies Allergy/AdvReac Type Severity Reaction Status Date / Time azithromycin [AZITHROMYCIN] Allergy Severe Rash Verified 07/21/24 21:36 Fish Containing Products Allergy Severe Anaphylaxis Verified 07/21/24 21:36 codeine [Codeine] Allergy Intermediate Rash Verified 07/21/24 21:36 Penicillins Allergy Intermediate Rash Verified 07/21/24 21:36 prednisone [Prednisone] Allergy Intermediate Rash Verified 07/21/24 21:36 Sulfa (Sulfonamide Allergy Intermediate Rash Verified 07/21/24 21:36 Antibiotics) [Sulfa (Sulfonamides)] ziprasidone [From Geodon] Allergy Intermediate dysuria, Verified 07/21/24 21:36 rash lithium Allergy Rash Verified 07/21/24 21:36 Review of Systems Review of Systems: Constitutional : No Weight loss, No Fever, No Chills, No Night Sweats, No Fatigue, No Malaise ENT/Mouth : No Hearing loss, No Ear Pain, No Nasal Congestion, No Sinus Pain, No Hoarseness, No sore throat, No Rhinorrhea, No Swallowing Difficulty Eyes: No Eye Pain, No Swelling, No Redness, No Foreign Body, No Discharge, No Vision Changes Cardiovascular : No Chest Pain, No SOB, No Dyspnea on Exertion, No Orthopnea, No Edema, No Palpitations Respiratory : No Cough, No Sputum, No Wheezing, No Smoke Exposure, No Dyspnea Gastrointestinal : No Nausea, No Vomiting, No Diarrhea, No Constipation, No abdominal Pain, No Hematochezia, No Melena Genitourinary : no irregular bleeding, No Dysuria, No Urinary Frequency, No Hematuria, No Urinary Incontinence, No Urgency, No Flank Pain, No Urinary Flow Changes, No Hesitancy Musculoskeletal : No joint pain, No Myalgias, No Joint Swelling Skin : No Skin Lesions, No rash Neuro : No Weakness, No Numbness, No Paresthesias, No Loss of Consciousness, No Dizziness, No Headache Psych : Complaining of depression, hearing voices telling her to hurt herself Heme/Lymph: No Bruising, No Bleeding,No Lymphadenopathy Endocrine : No Polyuria, No Polydipsia, No Temperature Intolerance [facility] Past Medical History Medical History Asthma Suicidal ideation MDD (major depressive disorder), recurrent episode, severe Chest pain Acute anxiety COVID-19 Full body hives Major depression Dizziness Suicide attempt UTI (urinary tract infection) Acetaminophen overdose COVID History of attempted suicide History of non-suicidal self-harm Hypomagnesemia Suicide attempt Suicide attempt by acetaminophen overdose Acetaminophen overdose Depression Diabetes type 2, controlled Borderline personality disorder PTSD (post-traumatic stress disorder) Overdose GERD (gastroesophageal reflux disease) Mood disorder Hyperlipidemia Bronchitis Social History Social History Household Members: Other Household Members Other:: [facility] Housing: Other Housing Other:: correction [facility] Do you presently have visiting nurse or other home services: No Unable to assess alcohol history related to: Unknown Alcohol intake: never Comment: sitter in room Patient Tobacco Use Status: Current everyday Tobacco user Tobacco use type: Cigarette Cigarette Packs Per Day: 1 Cigarettes Per Day: 20.0 Years Smoked: 22 Smoked in Last 30 Days: No e-Cigarette/Vaping Use: Currently Using Second Hand Smoke Exposure: No Use of substances other than those prescribed or required for medical reasons: No Substance Use Type: Caffiene Advance Directives: No Advance Directives Information Provided: No Do you have a plan to hurt others: No Plan Patient : No service: No Current occupational status: unemployed and disabled Sexual orientation: Straight/Heterosexual Physical Exam Vital Signs: Vital Signs: Last Vital Signs Temp 98.7 F 07/21/24 22:47 Pulse 90 07/21/24 22:47 Resp 17 07/21/24 22:47 BP 129/75 07/21/24 22:47 Pulse Ox 96 07/21/24 22:47 O2 Del Method Room Air 07/21/24 22:47 BMI result Body Mass Index 42.2 Const: Other: Appearance: Alert. Oriented X3. No acute distress. Eyes: Pupils equal, round and reactive to light. ENT: Pharynx normal. Neck: Normal inspection. Neck supple. No lymph nodes noted. No crepitus CVS: Normal heart rate and rhythm. Pulses normal. Normal S1 and S2 Respiratory: No respiratory distress. Breath sounds normal. No Wheezing. No rales Abdomen: Soft and nontender. No rigidity. No distention. Skin: Skin warm and dry. Normal skin color. Normal skin turgor. Candidiasis present under the skin folds of the abdomen Extremities: No lower extremity edema. No Lacerations. No Rash Neuro: Oriented X 3. No motor deficit. No sensory deficit. Moving all extremities. No slurred speech. CN 2 through 12 grossly intact Psych: calm, cooperative, seems anxious Medical Decision Making Medical Decision Making MDM Narrative: Patient had labs done earlier today. No need to repeat at this time -care team recommends follow-up in the morning -physician observation started at 21:15 of 07/21/2024 Differential Diagnosis Differential Diagnoses: The differential diagnosis associated with the presentation includes (Anxiety, depression, hallucinations) Admission/Observation Consideration of admission/observation: Escalation of care including admission/observation considered (Patient is under physician observation waiting to be seen by the care team in the morning) Discharge Plan Discharge Clinical Impression: Auditory hallucination, Candidiasis of skin Patient Disposition: Still a Patient Instructions: Skin Yeast Infection (ED) Additional Instructions: Please follow-up with your primary care physician tomorrow. If you have any worsening or new symptoms, please return to the emergency room or call 911 Prescriptions: New miconazole nitrate [Athlete's Foot] 2 % powder 1 appl topical BID Qty: 85 0RF No Action fluoxetine 40 mg capsule 40 mg PO DAILY haloperidol 5 mg tablet 5 mg PO BID atorvastatin 10 mg tablet 10 mg PO DAILY clozapine 100 mg tablet 100 mg PO BEDTIME amlodipine 5 mg tablet 5 mg PO DAILY pantoprazole 20 mg tablet,delayed release (DR/EC) 20 mg PO BID lorazepam 0.5 mg tablet 0.5 mg PO Q4H PRN (Reason: Anxiety) buspirone 10 mg tablet 10 mg PO BID benztropine 1 mg tablet 1 mg PO BID montelukast 10 mg tablet 10 mg PO DAILY albuterol sulfate 90 mcg/actuation HFA aerosol inhaler 2 puff inhalation Q6H PRN (Reason: Wheezing) fluphenazine HCl 5 mg tablet 5 mg PO BID prazosin 2 mg capsule 2 mg PO BID mirtazapine 7.5 mg tablet 7.5 mg PO BEDTIME famotidine 20 mg Tablet 20 mg PO TIDWM PRN (Reason: GERD) 30 Days Qty: 90 0RF metformin 500 mg tablet 500 mg PO BID zaleplon 5 mg capsule 5 mg PO BEDTIME Interventions: [place]-Suicide Risk Severity Scale Last Done: 07/21/24 22:00 Print Language: Bangladeshi
[2024-07-21 22:47] VITALS: BP 129/75; PULSE 90; RESP 17; TEMP 37.1; O2SAT 96
--- NOTE | 2024-07-22 02:37 | PC.NURSE ---
cream ordered is not available in any pyxis per [facility]
[2024-07-22 06:00] VITALS: RESP 8
--- NOTE | 2024-07-22 06:16 | PC.NURSE ---
Pt calm and cooperative throughout night with staff. Pt to be evaluated by CARE team this morning.
--- NOTE | 2024-07-22 07:04 | PC.NURSE ---
Assumed care of PT a 0645. At this time the PT is observed to be resting quietly in their bed. No distress observed, breathing is even and unlabored.
[2024-07-22 10:21] VITALS: BP 129/75; PULSE 90; RESP 17; TEMP 37.1; O2SAT 96
== END 2024-07-22 10:22 | disposition home or self-care (01) ==
PROVIDERS: Emergency Provider Emergency Medicine
DX: R44.0 Auditory hallucinations (principal); B37.2 Candidiasis of skin and nail; E11.9 Type 2 diabetes mellitus without complications; E78.5 Hyperlipidemia, unspecified; E66.9 Obesity, unspecified; Z68.41 Body mass index [BMI] 40.0-44.9, adult; F17.210 Nicotine dependence, cigarettes, uncomplicated; Z79.02 Long term (current) use of antithrombotics/antiplatelets; Z79.84 Long term (current) use of oral hypoglycemic drugs; Z79.899 Other long term (current) drug therapy
CPT/HCPCS: 36415; 80048; 80076; 85025; 99283; 99285; S9485

== ENCOUNTER 2024-07-29 12:09 | Outpatient (REF) | payer MEDICARE, MEDICAID, SELFPAY ==
[2024-07-29 12:19] LABS: MANUAL DIFF FLAG NO
[2024-07-29 13:06] LABS: Basophils Percent Auto 0.4 % (0-2); Eosinophils Absolute Auto 0.4 X10*3/uL (0.0-0.4); Eosinophils Percent Auto 3.8 % (0-4); Hemoglobin 13.3 g/dl (12.0-16.0); Imm Gran Abs Auto 0.06 X10*3/uL (0.00-0.03); Imm Gran Pct Auto 0.6 % (0.0-0.4); Lymphocytes Absolute Auto 1.5 X10*3/uL (1.2-4.9); Lymphocytes Percent Auto 15.4 % (20-40); Mean Corpuscular HGB Conc 33.3 g/dl (31.0-35.0); Mean Corpuscular Hemoglobin 31.3 pg (27.0-33.0); Mean Corpuscular Volume 94.1 fL (80.0-98.0); Mean Platelet Volume 9.3 fL (9.4-12.3); Monocytes Absolute Auto 0.7 X10*3/uL (0.1-1.2); Neutrophils Absolute Auto 7.1 x10*3/uL (2.0-8.3); Neutrophils Percent Auto 72.8 % (45-73); Platelet Count 318 X10*3/uL (160-400); Red Blood Count 4.25 X10*6/uL (4.20-5.50); Red Cell Distribution Width 12.8 % (11.0-16.0); White Blood Count 9.8 X10*3/uL (4.8-10.8)
== END 2024-07-29 12:10 | disposition home or self-care (01) ==
LOC: HO.LABR 12:09
PROVIDERS: Visit Provider Psychiatry & Neurology Psychiatry
DX: Z13.89 Encounter for screening for other disorder (principal)
CPT/HCPCS: 36415; 85025

== ENCOUNTER 2024-07-29 14:05 | Emergency (ER) | payer MEDICARE, MEDICAID, SELFPAY ==
[2024-07-29 14:52] VITALS: BP 140/82; PULSE 89; O2SAT 95
--- NOTE | 2024-07-29 14:57 | ED.PSYCH ---
HPI - Psych General Chief Complaint: Psychiatric Symptoms Stated Complaint: SI, HEARING VOICES TO HARM HERSELF Time Seen by Provider: 07/29/24 14:47 Source: patient, EMS, RN notes reviewed and old records reviewed Mode of arrival: EMS Limitations: no limitations History of Present Illness ED Provider: Derrell Meredith PA-C HPI Narrative: 48-year-old female with history of depression, borderline personality disorder, diabetes, GERD, PTSD, with history of multiple suicide attempts with Tylenol overdose who presents to the ER via EMS from a correction for evaluation of acute on chronic auditory hallucinations. She states she is hearing voices which are telling her to harm herself. She denies any overdose or self-harm behavior today. She has been med compliant. Last seen here 1 week ago. MD complaint: hallucinations Duration: changing over time History of same: Yes Relieving factors: none Exacerbating factors: none Context: significant life stressor Associated psychiatric symptoms: depression and auditory hallucinations Associated symptoms: denies other symptoms Related Data Home Medications ?Medication ?Instructions ?Recorded ?Confirmed albuterol sulfate 90 mcg/actuation 2 puff inhalation Q6H PRN Wheezing 06/24/24 07/21/24 aerosol inhaler amlodipine 5 mg tablet 5 mg PO DAILY 06/24/24 07/21/24 atorvastatin 10 mg tablet 10 mg PO DAILY 06/24/24 07/21/24 benztropine 1 mg tablet 1 mg PO BID 06/24/24 07/21/24 buspirone 10 mg tablet 10 mg PO BID 06/24/24 07/21/24 clozapine 100 mg tablet 100 mg PO BEDTIME 06/24/24 07/21/24 fluoxetine 40 mg capsule 40 mg PO DAILY 06/24/24 07/21/24 fluphenazine HCl 5 mg tablet 5 mg PO BID 06/24/24 07/21/24 haloperidol 5 mg tablet 5 mg PO BID 06/24/24 07/21/24 lorazepam 0.5 mg tablet 0.5 mg PO Q4H PRN Anxiety 06/24/24 07/21/24 mirtazapine 7.5 mg tablet 7.5 mg PO BEDTIME 06/24/24 07/21/24 montelukast 10 mg tablet 10 mg PO DAILY 06/24/24 07/21/24 pantoprazole 20 mg tablet,delayed 20 mg PO BID 06/24/24 07/21/24 release prazosin 2 mg capsule 2 mg PO BID 06/24/24 07/21/24 metformin 500 mg tablet 500 mg PO BID 07/15/24 07/21/24 zaleplon 5 mg capsule 5 mg PO BEDTIME 07/15/24 07/21/24 Previous Rx's ?Medication ?Instructions ?Recorded famotidine 20 mg tablet 20 mg PO TIDWM PRN GERD 30 days 06/27/24 #90 tabs miconazole nitrate 2 % topical 1 appl topical BID #85 grams 07/22/24 powder (Athlete's Foot) Allergies Allergy/AdvReac Type Severity Reaction Status Date / Time azithromycin [AZITHROMYCIN] Allergy Severe Rash Verified 07/29/24 15:00 Fish Containing Products Allergy Severe Anaphylaxis Verified 07/29/24 15:00 codeine [Codeine] Allergy Intermediate Rash Verified 07/29/24 15:00 Penicillins Allergy Intermediate Rash Verified 07/29/24 15:00 prednisone [Prednisone] Allergy Intermediate Rash Verified 07/29/24 15:00 Sulfa (Sulfonamide Allergy Intermediate Rash Verified 07/29/24 15:00 Antibiotics) [Sulfa (Sulfonamides)] ziprasidone [From Geodon] Allergy Intermediate dysuria, Verified 07/29/24 15:00 rash lithium Allergy Rash Verified 07/29/24 15:00 Review of Systems Review of Systems: Yes all other systems are reviewed and are negative PMFSH Past Medical History Medical History Asthma Suicidal ideation MDD (major depressive disorder), recurrent episode, severe Chest pain Acute anxiety COVID-19 Full body hives Major depression Dizziness Suicide attempt UTI (urinary tract infection) Acetaminophen overdose COVID History of attempted suicide History of non-suicidal self-harm Hypomagnesemia Suicide attempt Suicide attempt by acetaminophen overdose Acetaminophen overdose Depression Diabetes type 2, controlled Borderline personality disorder PTSD (post-traumatic stress disorder) Overdose GERD (gastroesophageal reflux disease) Mood disorder Hyperlipidemia Bronchitis Social History Social History Household Members: Other Household Members Other:: correction Housing: Other Housing Other:: [facility] Do you presently have visiting nurse or other home services: No Unable to assess alcohol history related to: Unknown Alcohol intake: never Comment: sitter in room Patient Tobacco Use Status: Current everyday Tobacco user Tobacco use type: Cigarette Cigarette Packs Per Day: 1 Cigarettes Per Day: 20.0 Years Smoked: 22 e-Cigarette/Vaping Use: Currently Using Second Hand Smoke Exposure: No Substance Use Type: Caffiene Advance Directives: No Advance Directives Information Provided: Yes service: No Current occupational status: unemployed and disabled Sexual orientation: Straight/Heterosexual Physical Exam Vital Signs: Vital Signs: Last Vital Signs Temp 98.3 F 07/29/24 14:59 Pulse 82 07/29/24 14:59 Resp 20 07/29/24 14:59 BP 158/87 H 07/29/24 14:59 Pulse Ox 96 07/29/24 14:59 O2 Del Method Room Air 07/29/24 14:59 BMI result Body Mass Index 38.8 Appearance: Alert. Oriented X3. No acute distress. Head: normocephalic, atraumatic. Eyes: Pupils equal, round and reactive to light. ENT: Pharynx normal. No tonsillar swelling or exudate. Neck: Normal inspection. Neck supple. CVS: Normal heart rate and rhythm. Pulses normal. Respiratory: No respiratory distress. Breath sounds normal. Abdomen: Soft and nontender. +BS x4 Skin: Skin warm and dry. Normal skin color. Normal skin turgor. No rashes. Extremities: No lower extremity edema. No joint swelling. Neuro/psych: Oriented X 3. No motor deficit. No sensory deficit. CN II-XII intact. Normal speech and cognition. Flat affect. +AH, not responding to internal stimuli Course Reevaluation(s) Reevaluation #1: Physician observation started at 16:13. Patient placed in physician observation because patient is awaiting CARE team evaluation for the possible need of inpatient psych admission. At the time observation was started patient's vital signs were stable. Patient is alert and oriented. Neuro exam is non-focal. CV: RRR and lungs are clear. Will continue to monitor. Time: 16:13 Reevaluation #2: Dr. Raymond Contreras's End physician observation on 07/29/2024 at 16:55 hours: Patient presented to the emergency department for evaluation of command auditory hallucinations. Patient was evaluated care team in his well-known to the emergency department. At this time was felt that the patient does not need to be admitted and can be discharged. Care team will arrange a Lyft back to her correction. Observation care revealed the the patient does not meet medical necessity for hospitalization. Exam at time of disposition revealed the patient was awake, alert , oriented to person place, was not in any distress. ? Final disposition discussed with the patient was able to verbalized understanding and agreement. Patient started observation time on 07/29/2024 at 16:13 hours Patient completed observation care on 16:55 hours Total time spent in observation care was 42 minutes Time: 16:55 Medical Decision Making Medical Decision Making MDM Narrative: 48 year old female with history of borderline personality disorder, PTSD, depression, history of Tylenol overdose who presents to the ER for evaluation of acute on chronic auditory hallucinations, voices telling her to harm herself. Denies any overdose or self-harm behaviors today. This is her baseline behaviors. Patient well known to the ER. Tylenol level pending. Differential Diagnosis Differential Diagnoses: The differential diagnosis associated with the presentation includes chronic auditory hallucinations, overdose, substance induced mood disorder, acute psychosis, schizophrenia, schizoaffective disorder, PTSD, bipolar disorder, major depression with psychotic features Admission/Observation Consideration of admission/observation: Escalation of care including admission/observation considered Lab Data [facility] Lab Attestation statement: I reviewed the patient's lab results. No anemia, no leukocytosis, no thrombocytopenia. Normal renal function. 07/29/24 15:11 07/29/24 15:11 Labs: Lab Results 07/29/24 Range/Units 15:11 WBC 7.7 (4.8-10.8) X10*3/uL RBC 4.48 (4.20-5.50) X10*6/uL Hgb 13.8 (12.0-16.0) g/dl Hct 42.2 (37.0-47.0) % MCV 94.2 (80.0-98.0) fL MCH 30.8 (27.0-33.0) pg MCHC 32.7 (31.0-35.0) g/dl RDW 12.8 (11.0-16.0) % Plt Count 295 (160-400) X10*3/uL MPV 9.2 L (9.4-12.3) fL Immature Gran % (Auto) 0.8 H (0.0-0.4) % Neut % (Auto) 71.0 (45-73) % Lymph % (Auto) 17.5 L (20-40) % [place] % (Auto) 6.5 (2-11) % Eos % (Auto) 3.9 (0-4) % Baso % (Auto) 0.3 (0-2) % Lymph # (Auto) 1.4 (1.2-4.9) X10*3/uL [place] # (Auto) 0.5 (0.1-1.2) X10*3/uL Eos # (Auto) 0.3 (0.0-0.4) X10*3/uL Baso # (Auto) 0.0 (0.0-0.2) X10*3/uL Abs Immat Gran (auto) 0.06 H (0.00-0.03) X10*3/uL Absolute Neuts (auto) 5.5 (2.0-8.3) x10*3/uL Absolute Nucleated RBC 0.000 (0.0-0.012) X10*3/uL Nucleated RBC % (auto) 0.0 (0.0-0.2) /100WBC Sodium 144 (135-145) mmol/L Potassium 4.0 (3.3-5.1) mmol/L Chloride 107 (96-108) mmol/L Carbon Dioxide 24 (22-29) mmol/L Anion Gap 17 (12-20) BUN 10 (9-16) mg/dL Creatinine 0.74 (0.5-1.4) mg/dL Estim Creat Clear Calc 110.7 Estimated GFR > 60 Random Glucose 112 (60-115) mg/dL Calcium 9.8 (8.4-10.2) mg/dL Magnesium 1.8 (1.6-2.6) mg/dL Total Bilirubin 0.5 (0.0-1.0) mg/dL Direct Bilirubin 0.2 (0.0-0.5) mg/dL AST 18 (5-31) U/L ALT 21 (0-31) U/L Alkaline Phosphatase 123 H (39-117) U/L Total Protein 7.1 (6.5-8.0) g/dL Albumin 4.4 (3.5-5.0) g/dL Urine Color Yellow Urine Appearance Clear Urine pH 6.0 (5.0-9.0) Ur Specific [place] <= 1.005 (1.005-1.025) Urine Protein Negative (Neg-Trace) mg/dL Urine Glucose (UA) Negative (Negative) mg/dL Urine Ketones Negative (Negative) mg/dL Urine Blood Negative (Negative) Urine Nitrite Negative (Negative) Ur Leukocyte Esterase Negative (Negative) Salicylates < 5.0 L (15-30) mg/dL Urine Opiates Screen Not Detected (Not Detect) Ur Buprenorphine Scrn Not Detected (Not Detect) ng/mL Ur Oxycodone Screen Not Detected (Not Detect) ng/mL Urine Methadone Screen Not Detected (Not Detect) ng/mL Urine Fentanyl Screen Not Detected (Not Detect) Acetaminophen < 3 (<30) mcg/mL Ur Barbiturates Screen Not Detected (Not Detect) Ur Phencyclidine Scrn Not Detected (Not Detect) Ur Amphetamines Screen Not Detected (Not Detect) U Benzodiazepines Scrn Not Detected (Not Detect) Urine Cocaine Screen Not Detected (Not Detect) U Marijuana (THC) Screen Not Detected (Not Detect) Independent Historian Clinical information obtained from an independent historian. History obtained from or confirmed by: EMS External Record Review External record reviewed: Outpatient record, Prior outpatient labs and Prior outpatient radiology Prescription Management I considered prescription management with: Other (Antipsychotic) Chronic Conditions Patient?s care impacted by: Other (Borderline personality disorder) Critical Care Time Critical Care Time Critical Care Time: No Discharge Plan Discharge Clinical Impression: Borderline personality disorder Patient Disposition: Home, Self-Care Instructions: Borderline Personality Disorder (DC) Additional Instructions: take all of your medications as prescribed follow up with your doctor, therapist and psychiatrist If you develop new or worsening symptoms call 911 or come back to the ER for further evaluation. Prescriptions: No Action fluoxetine 40 mg capsule 40 mg PO DAILY haloperidol 5 mg tablet 5 mg PO BID atorvastatin 10 mg tablet 10 mg PO DAILY clozapine 100 mg tablet 100 mg PO BEDTIME amlodipine 5 mg tablet 5 mg PO DAILY pantoprazole 20 mg tablet,delayed release (DR/EC) 20 mg PO BID lorazepam 0.5 mg tablet 0.5 mg PO Q4H PRN (Reason: Anxiety) buspirone 10 mg tablet 10 mg PO BID benztropine 1 mg tablet 1 mg PO BID montelukast 10 mg tablet 10 mg PO DAILY albuterol sulfate 90 mcg/actuation HFA aerosol inhaler 2 puff inhalation Q6H PRN (Reason: Wheezing) fluphenazine HCl 5 mg tablet 5 mg PO BID prazosin 2 mg capsule 2 mg PO BID mirtazapine 7.5 mg tablet 7.5 mg PO BEDTIME famotidine 20 mg Tablet 20 mg PO TIDWM PRN (Reason: GERD) 30 Days Qty: 90 0RF metformin 500 mg tablet 500 mg PO BID zaleplon 5 mg capsule 5 mg PO BEDTIME miconazole nitrate [Athlete's Foot] 2 % powder 1 appl topical BID Qty: 85 0RF Interventions: [place]-Suicide Risk Severity Scale Last Done: 07/29/24 15:01 Print Language: Albanian
[2024-07-29 14:59] VITALS: BP 158/87; PULSE 82; RESP 20; TEMP 36.8; O2SAT 96; BMI 38.8
[2024-07-29 15:26] LABS: MANUAL DIFF FLAG NO
[2024-07-29 15:31] LABS: Appearance Urine Clear; Color Urine Yellow; Glucose Urine UA Negative (Negative); Leukocyte Esterase Urine Negative (Negative); Nitrite Urine Negative (Negative); Specific Gravity - Urine <= 1.005 (1.005-1.025); Urine Blood Negative (Negative); Urine Ketones Negative (Negative); Urine Protein Negative (Neg-Trace)
[2024-07-29 15:36] LABS: Alanine Aminotransferase 21 U/L (0-31); Albumin Level 4.4 g/dL (3.5-5.0); Alkaline Phosphatase 123 U/L (39-117); Anion Gap 17 (12-20); Aspartate Amino Transferase 18 U/L (5-31); Bilirubin Direct 0.2 mg/dL (0.0-0.5); Bilirubin Total 0.5 mg/dL (0.0-1.0); Blood Urea Nitrogen 10 mg/dL (9-16); Calcium 9.8 mg/dL (8.4-10.2); Carbon Dioxide 24 mmol/L (22-29); Chloride 107 mmol/L (96-108); Creatinine Clr Calc Pharmacy 110.7; Estimated Glomerular Filt Rate > 60; Glucose Random 112 mg/dL (60-115); Magnesium 1.8 mg/dL (1.6-2.6); Sodium 144 mmol/L (135-145); Total Protein 7.1 g/dL (6.5-8.0)
[2024-07-29 15:40] LABS: Amphetamine Screen Urine Not Detected (Not Detect); Barbiturates, Urine Not Detected (Not Detect); Benzodiazepines Screen Urine Not Detected (Not Detect); Buprenorphine Scr Not Detected (Not Detect); Cannabinoid Screen Urine Not Detected (Not Detect); Cocaine Screen Urine Not Detected (Not Detect); Fentanyl, urine Not Detected (Not Detect); Methadone Screen, Urine Not Detected (Not Detect); Opiate Screen Urine Not Detected (Not Detect); Oxycodone Screen Urine Not Detected (Not Detect); Phencyclidine Screen Urine Not Detected (Not Detect)
[2024-07-29 15:45] LABS: Basophils Percent Auto 0.3 % (0-2); Eosinophils Absolute Auto 0.3 X10*3/uL (0.0-0.4); Eosinophils Percent Auto 3.9 % (0-4); Hematocrit 42.2 % (37.0-47.0); Hemoglobin 13.8 g/dl (12.0-16.0); Imm Gran Abs Auto 0.06 X10*3/uL (0.00-0.03); Imm Gran Pct Auto 0.8 % (0.0-0.4); Lymphocytes Absolute Auto 1.4 X10*3/uL (1.2-4.9); Lymphocytes Percent Auto 17.5 % (20-40); Mean Corpuscular HGB Conc 32.7 g/dl (31.0-35.0); Mean Corpuscular Hemoglobin 30.8 pg (27.0-33.0); Mean Corpuscular Volume 94.2 fL (80.0-98.0); Mean Platelet Volume 9.2 fL (9.4-12.3); Monocytes Absolute Auto 0.5 X10*3/uL (0.1-1.2); Monocytes Percent Auto 6.5 % (2-11); Neutrophils Absolute Auto 5.5 x10*3/uL (2.0-8.3); Platelet Count 295 X10*3/uL (160-400); Red Blood Count 4.48 X10*6/uL (4.20-5.50); Red Cell Distribution Width 12.8 % (11.0-16.0); White Blood Count 7.7 X10*3/uL (4.8-10.8)
[2024-07-29 16:47] LABS: Acetaminophen LAB < 3 mcg/mL (<30); Salicylate < 5.0 mg/dL (15-30)
[2024-07-29 17:00] VITALS: BP 158/87; PULSE 82; RESP 20; TEMP 36.8; O2SAT 96
== END 2024-07-29 17:00 | disposition home or self-care (01) ==
PROVIDERS: Physician Assistant; Emergency Provider Emergency Medicine Emergency Medical Services; PCP Nurse Practitioner Family
DX: F33.1 Major depressive disorder, recurrent, moderate (principal); R45.851 Suicidal ideations; F60.3 Borderline personality disorder; F17.210 Nicotine dependence, cigarettes, uncomplicated; Z79.899 Other long term (current) drug therapy; Z51.81 Encounter for therapeutic drug level monitoring
CPT/HCPCS: 36415; 80048; 80076; 80143; 80179; 80307; 81003; 83735; 85025; 99283; S9485

== ENCOUNTER 2024-07-30 12:51 | Emergency (ER) | payer MEDICARE, MEDICAID, SELFPAY ==
--- NOTE | 2024-07-30 13:13 | ED.GENADULT ---
HPI - General Adult General Stated complaint: Behavioral Time Seen by Provider: 07/30/24 13:05 Source: patient and EMS Mode of arrival: EMS Limitations: no limitations History of Present Illness ED Provider: Nicik Schreiber PA-C HPI narrative: Patient is a 48 year old assigned female at with a history of depression, borderline personality disorder, DM, GERD, PTSD, MDD, asthma, and multiple suicide attempts presenting to the emergency department today with increased depression. Patient states that this month is usually hard for her and she is feeling more down. Patient denies any dizziness, lightheadedness, abdominal pain, nausea, vomiting, fever, chills, blurry vision, double vision, loss of vision, chest pain, difficulty breathing, shortness of breath, back pain, night sweats, pain with urination, increased urinary frequency, increased urinary urgency, blood in her urine or stool, syncope or a near syncopal episode, recent trauma or falls, bowel incontinence, bladder incontinence, or any other complaints at this time. Relieving factors: none Exacerbating factors: none Associated symptoms: denies other symptoms Treatments prior to arrival: none Related Data Home Medications ?Medication ?Instructions ?Recorded ?Confirmed albuterol sulfate 90 mcg/actuation 2 puff inhalation Q6H PRN Wheezing 06/24/24 07/21/24 aerosol inhaler amlodipine 5 mg tablet 5 mg PO DAILY 06/24/24 07/21/24 atorvastatin 10 mg tablet 10 mg PO DAILY 06/24/24 07/21/24 benztropine 1 mg tablet 1 mg PO BID 06/24/24 07/21/24 buspirone 10 mg tablet 10 mg PO BID 06/24/24 07/21/24 clozapine 100 mg tablet 100 mg PO BEDTIME 06/24/24 07/21/24 fluoxetine 40 mg capsule 40 mg PO DAILY 06/24/24 07/21/24 fluphenazine HCl 5 mg tablet 5 mg PO BID 06/24/24 07/21/24 haloperidol 5 mg tablet 5 mg PO BID 06/24/24 07/21/24 lorazepam 0.5 mg tablet 0.5 mg PO Q4H PRN Anxiety 06/24/24 07/21/24 mirtazapine 7.5 mg tablet 7.5 mg PO BEDTIME 06/24/24 07/21/24 montelukast 10 mg tablet 10 mg PO DAILY 06/24/24 07/21/24 pantoprazole 20 mg tablet,delayed 20 mg PO BID 06/24/24 07/21/24 release prazosin 2 mg capsule 2 mg PO BID 06/24/24 07/21/24 metformin 500 mg tablet 500 mg PO BID 07/15/24 07/21/24 zaleplon 5 mg capsule 5 mg PO BEDTIME 07/15/24 07/21/24 Previous Rx's ?Medication ?Instructions ?Recorded famotidine 20 mg tablet 20 mg PO TIDWM PRN GERD 30 days 06/27/24 #90 tabs miconazole nitrate 2 % topical 1 appl topical BID #85 grams 07/22/24 powder (Athlete's Foot) Allergies Allergy/AdvReac Type Severity Reaction Status Date / Time azithromycin [AZITHROMYCIN] Allergy Severe Rash Verified 07/29/24 15:00 Fish Containing Products Allergy Severe Anaphylaxis Verified 07/29/24 15:00 codeine [Codeine] Allergy Intermediate Rash Verified 07/29/24 15:00 Penicillins Allergy Intermediate Rash Verified 07/29/24 15:00 prednisone [Prednisone] Allergy Intermediate Rash Verified 07/29/24 15:00 Sulfa (Sulfonamide Allergy Intermediate Rash Verified 07/29/24 15:00 Antibiotics) [Sulfa (Sulfonamides)] ziprasidone [From Geodon] Allergy Intermediate dysuria, Verified 07/29/24 15:00 rash lithium Allergy Rash Verified 07/29/24 15:00 Review of Systems Constitutional: Constitutional: Reports no additional constitutional complaints, Denies chills, Denies fever(s) and Denies night sweats Eyes: Eyes: Reports no additional eye complaints, Denies blurry vision, Denies change in vision, Denies diplopia, Denies eye discharge, Denies loss of vision and Denies eye pain ENT: Denies dizziness Cardiovascular: Cardiovascular: Reports no additional cardiovascular complaints, Denies chest pain, Denies lightheadedness, Denies Loss of Consciousness and Denies dyspnea Respiratory: Respiratory: Reports no additional respiratory complaints and Denies dyspnea Gastrointestinal: Gastrointestinal: Reports no additional gastrointestinal complaints, Denies abdominal pain, Denies melena, Denies hematochezia, Denies change in bowel habits and Denies change in stool character Genitourinary: Genitourinary: Denies hematuria, Denies urinary frequency, Denies dysuria, Denies urinary incontinence, Denies urinary hesitancy and Denies urinary urgency Musculoskeletal: Musculoskeletal: Reports no additional musculoskeletal complaints, Denies numbness and Denies tingling Neurologic: Denies dizziness, Denies loss of vision, Denies numbness and Denies tingling Psychiatric: Psychiatric: Reports depression Endocrine: Endocrine: Reports no additional endocrine complaints Hematologic/Lymphatic: Hematologic/Lymphatic: Reports no additional hematologic/lymphatic complaints Allergic/Immunologic: Allergic/Immunologic: Reports no additional allergic/immunologic complaints PMFSH Past Medical History Attestation statement: The following information was validated with the patient. Source: old records reviewed and nursing notes reviewed Medical History Asthma Suicidal ideation MDD (major depressive disorder), recurrent episode, severe Chest pain Acute anxiety COVID-19 Full body hives Major depression Dizziness Suicide attempt UTI (urinary tract infection) Acetaminophen overdose COVID History of attempted suicide History of non-suicidal self-harm Hypomagnesemia Suicide attempt Suicide attempt by acetaminophen overdose Acetaminophen overdose Depression Diabetes type 2, controlled Borderline personality disorder PTSD (post-traumatic stress disorder) Overdose GERD (gastroesophageal reflux disease) Mood disorder Hyperlipidemia Bronchitis Social History Social History Household Members: Other Household Members Other:: care home Housing: Other Housing Other:: senior care [facility] Do you presently have visiting nurse or other home services: No Unable to assess alcohol history related to: Unknown Alcohol intake: never Comment: sitter in room Patient Tobacco Use Status: Current everyday Tobacco user Tobacco use type: Cigarette Cigarette Packs Per Day: 1 Cigarettes Per Day: 20.0 Years Smoked: 22 e-Cigarette/Vaping Use: Currently Using Second Hand Smoke Exposure: No Substance Use Type: Caffiene Advance Directives: No service: No Current occupational status: unemployed and disabled Sexual orientation: Straight/Heterosexual Physical Exam ED Vital Signs: Vital Signs - 24 hr 07/30/24 13:28 Temperature 0 F L Pulse Rate 106 H Respiratory Rate 18 Blood Pressure 0/0 L Pulse Oximetry 97 Oxygen Delivery Method Room Air Const General: cooperative, no acute distress, alert and awake Nutritional Appearance: well nourished Orientation/consciousness: patient oriented x3 Limitations: no limitations HENMT Head: Yes normal to inspection and Yes atraumatic Ears: hearing grossly normal bilaterally and external ears normal General nose exam: Normal external nose present, no nasal discharge noted and no epistaxis Face and sinus: Yes normal facial exam, No abrasion and No laceration Mouth: Normal oral and palatal mucosa present, no drooling and no muffled voice Eyes General: appearance normal, both eyes and all related structures Periorbital: periorbital findings normal Eyelids: Yes eyelids normal Conjunctivae: conjunctivae normal Pupils: Equal, round and reactive pupils present EOM: EOMs intact bilaterally Neck Neck: Yes normal visual inspection, Yes full ROM and Yes no lymphadenopathy Chest Chest palpation & inspection: normal inspection of the chest Resp Effort & Inspection: normal respiratory effort and able to speak in complete sentences GI Inspection: Yes normal to inspection Neuro General: patient oriented x3 and moves all extremities Cranial nerves: Yes Equal, round and reactive pupils present Cognition (Neuro): normal cognition Extrem General: Yes normal to inspection, Yes full ROM and Yes capillary refill normal Psych Appearance: grossly normal Mental Status: mental status grossly normal Affect: normal affect Attitude: cooperative Medical Decision Making Medical Decision Making MDM Narrative: Patient is a 48 year old assigned female at with a history of depression, borderline personality disorder, DM, GERD, PTSD, MDD, asthma, and multiple suicide attempts presenting to the emergency department today with increased depression. Patient's physical exam was unremarkable. I explained my physical exam findings to the patient. I answered all questions asked by the patient. This is the patient's 5th visit to the ER for a similar complaint in July of 2024. Patient met with the CARE team and together, they created a safety plan / contract for safety. Patient requested to be discharged back to her care home stating she felt much better after visiting us in the ER. I stressed the importance of the patient taking her medication as directed (either prescribed or as the over the counter packaging recommends). I stressed the importance of the patient following up with her primary care provider. I stressed the importance of the patient returning to the emergency department immediately if her symptoms were to worsen or if she were to develop any dizziness, shortness of breath, difficulty breathing, chest pain, blurry vision, loss of vision, nausea, vomiting, abdominal pain, fever, chills, back pain, or any other complaints. Patient verbalized agreement and understanding with this treatment plan and discharge back to her care home. Differential Diagnosis Differential Diagnoses: The differential diagnosis associated with the presentation includes Depression Admission/Observation Consideration of admission/observation: Escalation of care including admission/observation considered Patient would have been admitted to the hospital had her clinical presentation warranted hospital admission. Consult Healthcare Provider Management of the patient was discussed with: Behavioral Health Provider (spoke with the CARE team as noted in the MDM Rationale portion of this note.) Independent Historian Clinical information obtained from an independent historian. History obtained from or confirmed by: EMS (EMS provided additional history and confirmed the history provided by the patient.) Discharge Plan Discharge Clinical Impression: Depression Patient Disposition: Home, Self-Care Instructions: Depression (DC) Additional Instructions: Follow up with your primary care provider. Return to the emergency department immediately if your symptoms worsen or if you develop any dizziness, shortness of breath, difficulty breathing, chest pain, blurry vision, loss of vision, nausea, vomiting, abdominal pain, fever, chills, back pain, or any other complaints. [facility]: [address] [place] [id number] Walk in hours from 10am - 12pm Open from 10am - 12pm [facility] Crisis Services: [address] [place] [address] Walk in hours from 10am - 12pm Open 07/05 [facility]al [facility]: [address] [place] [id number] [address] [place] [id number] Hours: M-F 8am to 8pm Sunday and Sunday 9am to 5pm Prescriptions: No Action fluoxetine 40 mg capsule 40 mg PO DAILY haloperidol 5 mg tablet 5 mg PO BID atorvastatin 10 mg tablet 10 mg PO DAILY clozapine 100 mg tablet 100 mg PO BEDTIME amlodipine 5 mg tablet 5 mg PO DAILY pantoprazole 20 mg tablet,delayed release (DR/EC) 20 mg PO BID lorazepam 0.5 mg tablet 0.5 mg PO Q4H PRN (Reason: Anxiety) buspirone 10 mg tablet 10 mg PO BID benztropine 1 mg tablet 1 mg PO BID montelukast 10 mg tablet 10 mg PO DAILY albuterol sulfate 90 mcg/actuation HFA aerosol inhaler 2 puff inhalation Q6H PRN (Reason: Wheezing) fluphenazine HCl 5 mg tablet 5 mg PO BID prazosin 2 mg capsule 2 mg PO BID mirtazapine 7.5 mg tablet 7.5 mg PO BEDTIME famotidine 20 mg Tablet 20 mg PO TIDWM PRN (Reason: GERD) 30 Days Qty: 90 0RF metformin 500 mg tablet 500 mg PO BID zaleplon 5 mg capsule 5 mg PO BEDTIME miconazole nitrate [Athlete's Foot] 2 % powder 1 appl topical BID Qty: 85 0RF Referrals: Maribel Marquez [employer]PERVISOR [Primary Care Provider] - Interventions: ED Discharge Assessment Last Done: 07/30/24 13:28 Discharge Date/Time: 07/30/24 13:29 Print Language: Chinese
--- NOTE | 2024-07-30 13:24 | MHC.CARE ---
Pt presented to the ED via EMS endorsing command AH to harm herself. T/W went and spoke with Lucita in the pod prior to being changed over by security. Lucita stated that she wanted to go inpatient however could not identify one way that this level of care would help her. Pt was in the ED yesterday for similar concerns and frequently presents to the ED for AH to harm herself. This is Pt's baseline. Pt was able to safety plan with this automobile service writer and agreed that she would speak to [facility]- staff at her prison to identify coping skills tonight. She stated I want to leave and asked to discharge. Pt stated that she would not harm herself and denied SI, HI, at this time. T/W spoke with [facility] staff and they stated they were able to provide support and keep Pt safe in the at this time. TIMI Faria was in agreement with this disposition.
[2024-07-30 13:28] VITALS: BP 0/0; PULSE 106; RESP 18; TEMP -17.7; TEMP 0; O2SAT 97
== END 2024-07-30 13:29 | disposition home or self-care (01) ==
PROVIDERS: Emergency Provider Emergency Medicine; PCP Nurse Practitioner Family
DX: F32.A Depression, unspecified (principal); R45.851 Suicidal ideations; F60.3 Borderline personality disorder; E11.9 Type 2 diabetes mellitus without complications; K21.9 Gastro-esophageal reflux disease without esophagitis; J45.909 Unspecified asthma, uncomplicated; Z79.02 Long term (current) use of antithrombotics/antiplatelets; Z79.899 Other long term (current) drug therapy; Z79.84 Long term (current) use of oral hypoglycemic drugs; F17.210 Nicotine dependence, cigarettes, uncomplicated

== ENCOUNTER 2024-07-31 22:10 | Emergency (ER) | payer MEDICARE, MEDICAID, SELFPAY ==
[2024-07-31 22:23] VITALS: BP 142/98; PULSE 84; RESP 18; TEMP 37.1; O2SAT 96
[2024-07-31 22:24] VITALS: BP 142/98; BP 160/90; PULSE 90; RESP 16; TEMP 37; O2SAT 95; BMI 36.6
--- NOTE | 2024-07-31 22:57 | ED.GENADULT ---
HPI - General Adult General Chief complaint: Psychiatric Symptoms Stated complaint: si,hearing voices Time Seen by Provider: 07/31/24 22:13 Source: patient and RN notes reviewed Mode of arrival: EMS Limitations: no limitations History of Present Illness ED Provider: Hilda HPI narrative: 48-year-old female with medical history significant for borderline personality disorder, diabetes, GERD, hyperlipidemia PTSD presents for evaluation of ?hearing voices and suicidal ideation. Patient reports that she has been compliant with all of her medications. She reports she has been hearing increased voices since this morning. She reports that the voices are telling her to ?cut myself. ? She states that she did cut herself on her left arm and upper abdomen No other complaints or concerns at this time Related Data Home Medications ?Medication ?Instructions ?Recorded ?Confirmed albuterol sulfate 90 mcg/actuation 2 puff inhalation Q6H PRN Wheezing 06/24/24 07/21/24 aerosol inhaler amlodipine 5 mg tablet 5 mg PO DAILY 06/24/24 07/21/24 atorvastatin 10 mg tablet 10 mg PO DAILY 06/24/24 07/21/24 benztropine 1 mg tablet 1 mg PO BID 06/24/24 07/21/24 buspirone 10 mg tablet 10 mg PO BID 06/24/24 07/21/24 clozapine 100 mg tablet 100 mg PO BEDTIME 06/24/24 07/21/24 fluoxetine 40 mg capsule 40 mg PO DAILY 06/24/24 07/21/24 fluphenazine HCl 5 mg tablet 5 mg PO BID 06/24/24 07/21/24 haloperidol 5 mg tablet 5 mg PO BID 06/24/24 07/21/24 lorazepam 0.5 mg tablet 0.5 mg PO Q4H PRN Anxiety 06/24/24 07/21/24 mirtazapine 7.5 mg tablet 7.5 mg PO BEDTIME 06/24/24 07/21/24 montelukast 10 mg tablet 10 mg PO DAILY 06/24/24 07/21/24 pantoprazole 20 mg tablet,delayed 20 mg PO BID 06/24/24 07/21/24 release prazosin 2 mg capsule 2 mg PO BID 06/24/24 07/21/24 metformin 500 mg tablet 500 mg PO BID 07/15/24 07/21/24 zaleplon 5 mg capsule 5 mg PO BEDTIME 07/15/24 07/21/24 Previous Rx's ?Medication ?Instructions ?Recorded famotidine 20 mg tablet 20 mg PO TIDWM PRN GERD 30 days 06/27/24 #90 tabs miconazole nitrate 2 % topical 1 appl topical BID #85 grams 07/22/24 powder (Athlete's Foot) Allergies Allergy/AdvReac Type Severity Reaction Status Date / Time azithromycin [AZITHROMYCIN] Allergy Severe Rash Verified 07/31/24 22:32 Fish Containing Products Allergy Severe Anaphylaxis Verified 07/31/24 22:32 codeine [Codeine] Allergy Intermediate Rash Verified 07/31/24 22:32 Penicillins Allergy Intermediate Rash Verified 07/31/24 22:32 prednisone [Prednisone] Allergy Intermediate Rash Verified 07/31/24 22:32 Sulfa (Sulfonamide Allergy Intermediate Rash Verified 07/31/24 22:32 Antibiotics) [Sulfa (Sulfonamides)] ziprasidone [From Geodon] Allergy Intermediate dysuria, Verified 07/31/24 22:32 rash lithium Allergy Rash Verified 07/31/24 22:32 Review of Systems Constitutional: Constitutional: Denies body ache(s), Denies chills, Denies fever(s) and Denies headache(s) Eyes: Eyes: Denies blurry vision ENT: Denies headache(s), Denies sinus pressure and Denies sore throat Cardiovascular: Cardiovascular: Denies chest pain and Denies dyspnea Respiratory: Respiratory: Denies cough and Denies dyspnea Gastrointestinal: Gastrointestinal: Denies abdominal pain, Denies nausea and Denies vomiting Integumentary/Breasts: Skin/Breast: Reports wounds Neurologic: Denies headache(s) Psychiatric: Psychiatric: Reports anxiety, Reports depression, Reports auditory hallucinations and Reports suicidal ideation PMFSH Past Medical History Medical History Asthma Suicidal ideation MDD (major depressive disorder), recurrent episode, severe Chest pain Acute anxiety COVID-19 Full body hives Major depression Dizziness Suicide attempt UTI (urinary tract infection) Acetaminophen overdose COVID History of attempted suicide History of non-suicidal self-harm Hypomagnesemia Suicide attempt Suicide attempt by acetaminophen overdose Acetaminophen overdose Depression Diabetes type 2, controlled Borderline personality disorder PTSD (post-traumatic stress disorder) Overdose GERD (gastroesophageal reflux disease) Mood disorder Hyperlipidemia Bronchitis Social History Social History Household Members: Other Household Members Other:: long-term Housing: Other Housing Other:: [facility] Do you presently have visiting nurse or other home services: No Unable to assess alcohol history related to: Unknown Alcohol intake: never Comment: sitter in room Patient Tobacco Use Status: Current everyday Tobacco user Tobacco use type: Cigarette Cigarette Packs Per Day: 1 Cigarettes Per Day: 20.0 Years Smoked: 22 e-Cigarette/Vaping Use: Currently Using Second Hand Smoke Exposure: No Substance Use Type: Caffiene Advance Directives: No Advance Directives Information Provided: No Do you have a plan to hurt others: No Plan service: No Current occupational status: unemployed and disabled Sexual orientation: Straight/Heterosexual Physical Exam ED Vital Signs: Vital Signs - 24 hr 07/31/24 22:23 07/31/24 22:24 Temperature 98.7 F 98.6 F Pulse Rate 84 90 Respiratory Rate 18 16 Blood Pressure 142/98 H 142/98 H Pulse Oximetry 96 95 Oxygen Delivery Method Room Air Room Air BMI result Body Mass Index 36.6 Const General: healthy appearing, comfortable, no acute distress, alert and awake Nutritional Appearance: well nourished Orientation/consciousness: patient oriented x3 HENMT Head: Yes normocephalic and Yes atraumatic Eyes Eyelids: Yes eyelids normal Conjunctivae: conjunctivae normal Sclerae: sclerae normal Corneas: corneas normal Pupils: Equal, round and reactive pupils present EOM: EOMs intact bilaterally Neck Neck: Yes full ROM Resp Effort & Inspection: normal respiratory effort, able to speak in complete sentences and not labored Cardio Rate: regular rate Rhythm: regular rhythm GI Inspection: No distended Palpation (GI): Soft to palpation, not firm, nontender, no guarding and not rigid Skin Other: Numerous superficial scratches to the left forearm and upper abdomen, no deep lacerations no active bleeding. General skin exam: elasticity normal Neuro General: patient oriented x3 Cranial nerves: Yes Equal, round and reactive pupils present and Yes Bilaterally intact EOM present Extrem Other: Moving all extremities well without any obvious deformities Course Reevaluation(s) Reevaluation #1: She reports that she is no longer suicidal, she is no longer hearing voices and is ready to go home. Time: 01:04 Medical Decision Making Medical Decision Making MDM Narrative: 48-year-old female with past medical history as documented above presents for evaluation depression with suicidal ideation. The patient is well known to this facility for similar presentations. I reviewed her workup from 2 days ago. A urine tox was sent. We will monitor the patient for the next 2 hours, if she is still having self-harm thoughts we will have her seen by the care team Differential Diagnosis Differential Diagnoses: The differential diagnosis associated with the presentation includes Depression Suicidal ideation Self-harm behavior Malingering Lab Data Labs: Lab Results 07/31/24 Range/Units 22:45 Urine Opiates Screen Not Detected (Not Detect) Ur Buprenorphine Scrn Not Detected (Not Detect) ng/mL Ur Oxycodone Screen Not Detected (Not Detect) ng/mL Urine Methadone Screen Not Detected (Not Detect) ng/mL Urine Fentanyl Screen Not Detected (Not Detect) Ur Barbiturates Screen Not Detected (Not Detect) Ur Phencyclidine Scrn Not Detected (Not Detect) Ur Amphetamines Screen Not Detected (Not Detect) U Benzodiazepines Scrn Not Detected (Not Detect) Urine Cocaine Screen Not Detected (Not Detect) U Marijuana (THC) Screen Not Detected (Not Detect) Discharge Plan Discharge Clinical Impression: Borderline personality disorder, Depression with suicidal ideation Patient Disposition: Home, Self-Care Instructions: Nonsuicidal Self-Injury (ED), Suicide Prevention (ED) Additional Instructions: Take all your medications as prescribed. Return to the ER for new or worsening symptoms, especially if you are having thoughts of harming yourself Prescriptions: No Action fluoxetine 40 mg capsule 40 mg PO DAILY haloperidol 5 mg tablet 5 mg PO BID atorvastatin 10 mg tablet 10 mg PO DAILY clozapine 100 mg tablet 100 mg PO BEDTIME amlodipine 5 mg tablet 5 mg PO DAILY pantoprazole 20 mg tablet,delayed release (DR/EC) 20 mg PO BID lorazepam 0.5 mg tablet 0.5 mg PO Q4H PRN (Reason: Anxiety) buspirone 10 mg tablet 10 mg PO BID benztropine 1 mg tablet 1 mg PO BID montelukast 10 mg tablet 10 mg PO DAILY albuterol sulfate 90 mcg/actuation HFA aerosol inhaler 2 puff inhalation Q6H PRN (Reason: Wheezing) fluphenazine HCl 5 mg tablet 5 mg PO BID prazosin 2 mg capsule 2 mg PO BID mirtazapine 7.5 mg tablet 7.5 mg PO BEDTIME famotidine 20 mg Tablet 20 mg PO TIDWM PRN (Reason: GERD) 30 Days Qty: 90 0RF metformin 500 mg tablet 500 mg PO BID zaleplon 5 mg capsule 5 mg PO BEDTIME miconazole nitrate [Athlete's Foot] 2 % powder 1 appl topical BID Qty: 85 0RF Interventions: [place]-Suicide Risk Severity Scale Last Done: 07/31/24 23:33 Print Language: Danish
[2024-07-31 23:00] LABS: Amphetamine Screen Urine Not Detected (Not Detect); Barbiturates, Urine Not Detected (Not Detect); Benzodiazepines Screen Urine Not Detected (Not Detect); Buprenorphine Scr Not Detected (Not Detect); Cannabinoid Screen Urine Not Detected (Not Detect); Cocaine Screen Urine Not Detected (Not Detect); Fentanyl, urine Not Detected (Not Detect); Methadone Screen, Urine Not Detected (Not Detect); Opiate Screen Urine Not Detected (Not Detect); Oxycodone Screen Urine Not Detected (Not Detect); Phencyclidine Screen Urine Not Detected (Not Detect)
--- NOTE | 2024-08-01 01:33 | PC.NURSE ---
provider met w client and t/w notified [facility] of our plan to have client return. t/w reviewed with staff that client had executed self harm with nadja and it had been disposed of prior to patient coming in (my thought its earlier today) reviewed that we would notify staff when cliuent returning. kayla [place] phone number [phone]
[2024-08-01 01:45] VITALS: BP 146/80; PULSE 70; RESP 16; TEMP 37; O2SAT 96
== END 2024-08-01 01:46 | disposition home or self-care (01) ==
PROVIDERS: Physician Assistant; Emergency Provider Internal Medicine; PCP Nurse Practitioner Family
DX: F33.1 Major depressive disorder, recurrent, moderate (principal); R45.851 Suicidal ideations; Z51.81 Encounter for therapeutic drug level monitoring; Z79.899 Other long term (current) drug therapy
CPT/HCPCS: 80307; 99284

== ENCOUNTER 2024-08-04 19:43 | Emergency (ER) | payer MEDICARE, MEDICAID, SELFPAY ==
[2024-08-04 19:49] VITALS: O2SAT 97
[2024-08-04 19:54] VITALS: BP 147/88; PULSE 113; RESP 18; TEMP 36.6; O2SAT 98; BMI 38.2
[2024-08-04 20:32] LABS: Appearance Urine Clear; Color Urine Yellow; Glucose Urine UA Negative (Negative); Leukocyte Esterase Urine Trace (Negative); Nitrite Urine Negative (Negative); PH 5.5 (5.0-9.0); UMIC TRIGGER UA YES; Urine Blood Negative (Negative); Urine Ketones Negative (Negative); Urine Protein Negative (Neg-Trace)
[2024-08-04 20:34] LABS: UPreg QC Valid YES; Urine Pregnancy NEGATIVE (NEGATIVE)
[2024-08-04 20:37] LABS: Bacteria Urine None Seen (None Seen); Hyaline Casts Urine 0-2 /LPF (0-2); RBC Urine 0-2 /HPF (0-2); Squamous Epithelial Cell Urine 0-2 /HPF (0-2); WBC Urine 0-5 /HPF (0-5)
[2024-08-04 20:41] LABS: Basophils Percent Auto 0.5 % (0-2); Eosinophils Absolute Auto 0.3 X10*3/uL (0.0-0.4); Eosinophils Percent Auto 3.5 % (0-4); Hematocrit 38.6 % (37.0-47.0); Hemoglobin 13.3 g/dl (12.0-16.0); Imm Gran Abs Auto 0.04 X10*3/uL (0.00-0.03); Imm Gran Pct Auto 0.5 % (0.0-0.4); Lymphocytes Absolute Auto 1.5 X10*3/uL (1.2-4.9); Lymphocytes Percent Auto 20.1 % (20-40); MANUAL DIFF FLAG NO; Mean Corpuscular HGB Conc 34.5 g/dl (31.0-35.0); Mean Corpuscular Hemoglobin 31.9 pg (27.0-33.0); Mean Corpuscular Volume 92.6 fL (80.0-98.0); Mean Platelet Volume 9.2 fL (9.4-12.3); Monocytes Absolute Auto 0.6 X10*3/uL (0.1-1.2); Monocytes Percent Auto 8.2 % (2-11); Neutrophils Percent Auto 67.2 % (45-73); Platelet Count 263 X10*3/uL (160-400); Red Blood Count 4.17 X10*6/uL (4.20-5.50); Red Cell Distribution Width 12.8 % (11.0-16.0); White Blood Count 7.4 X10*3/uL (4.8-10.8)
--- NOTE | 2024-08-04 20:46 | ED_ITS ---
HPI - Psych General Chief Complaint: Psychiatric Symptoms Stated Complaint: from jail, self harming on arms/belly Time Seen by Provider: 08/04/24 20:34 Source: patient and EMS Mode of arrival: EMS Limitations: no limitations History of Present Illness ED Provider: Dr. Eileen Ryan HPI Narrative: patient comes to the emergency room by EMS from her jail. Patient has bilateral arm superficial lacerations and in her abdomen. Patient stated I just wanna and I have the money to do it . Patient states that she does not feel like she is doing mentally well. Patient denies any other injuries other than the self-inflicted superficial lacerations. Related Data Home Medications ?Medication ?Instructions ?Recorded ?Confirmed albuterol sulfate 90 mcg/actuation 2 puff inhalation Q6H PRN Wheezing 06/24/24 08/04/24 aerosol inhaler amlodipine 5 mg tablet 5 mg PO DAILY 06/24/24 08/04/24 atorvastatin 10 mg tablet 10 mg PO DAILY 06/24/24 08/04/24 benztropine 1 mg tablet 1 mg PO BID 06/24/24 08/04/24 buspirone 10 mg tablet 10 mg PO BID 06/24/24 08/04/24 clozapine 100 mg tablet 100 mg PO BEDTIME 06/24/24 08/04/24 fluoxetine 40 mg capsule 40 mg PO DAILY 06/24/24 08/04/24 fluphenazine HCl 5 mg tablet 5 mg PO BID 06/24/24 08/04/24 haloperidol 5 mg tablet 5 mg PO BID 06/24/24 08/04/24 lorazepam 0.5 mg tablet 0.5 mg PO Q4H PRN Anxiety 06/24/24 08/04/24 mirtazapine 7.5 mg tablet 7.5 mg PO BEDTIME 06/24/24 08/04/24 montelukast 10 mg tablet 10 mg PO DAILY 06/24/24 08/04/24 pantoprazole 20 mg tablet,delayed 20 mg PO BID 06/24/24 08/04/24 release prazosin 2 mg capsule 2 mg PO BID 06/24/24 08/04/24 metformin 500 mg tablet 500 mg PO BID 07/15/24 08/04/24 zaleplon 5 mg capsule 5 mg PO BEDTIME 07/15/24 08/04/24 Previous Rx's ?Medication ?Instructions ?Recorded famotidine 20 mg tablet 20 mg PO TIDWM PRN GERD 30 days 06/27/24 #90 tabs miconazole nitrate 2 % topical 1 appl topical BID #85 grams 07/22/24 powder (Athlete's Foot) Allergies Allergy/AdvReac Type Severity Reaction Status Date / Time azithromycin [AZITHROMYCIN] Allergy Severe Rash Verified 08/04/24 19:56 Fish Containing Products Allergy Severe Anaphylaxis Verified 08/04/24 19:56 codeine [Codeine] Allergy Intermediate Rash Verified 08/04/24 19:56 Penicillins Allergy Intermediate Rash Verified 08/04/24 19:56 prednisone [Prednisone] Allergy Intermediate Rash Verified 08/04/24 19:56 Sulfa (Sulfonamide Allergy Intermediate Rash Verified 08/04/24 19:56 Antibiotics) [Sulfa (Sulfonamides)] ziprasidone [From Geodon] Allergy Intermediate dysuria, Verified 08/04/24 19:56 rash lithium Allergy Rash Verified 08/04/24 19:56 Review of Systems 2 Review of Systems: Constitutional : No Weight loss, No Fever, No Chills, No Night Sweats, No Fatigue, No Malaise ENT/Mouth : No Hearing loss, No Ear Pain, No Nasal Congestion, No Sinus Pain, No Hoarseness, No sore throat, No Rhinorrhea, No Swallowing Difficulty Eyes: No Eye Pain, No Swelling, No Redness, No Foreign Body, No Discharge, No Vision Changes Cardiovascular : No Chest Pain, No SOB, No Dyspnea on Exertion, No Orthopnea, No Edema, No Palpitations Respiratory : No Cough, No Sputum, No Wheezing, No Smoke Exposure, No Dyspnea Gastrointestinal : No Nausea, No Vomiting, No Diarrhea, No Constipation, No abdominal Pain, No Hematochezia, No Melena Genitourinary : no irregular bleeding, No Dysuria, No Urinary Frequency, No Hematuria, No Urinary Incontinence, No Urgency, No Flank Pain, No Urinary Flow Changes, No Hesitancy Musculoskeletal : No joint pain, No Myalgias, No Joint Swelling Skin : Complaining of superficial lacerations to the forearms and abdomen Neuro : No Weakness, No Numbness, No Paresthesias, No Loss of Consciousness, No Dizziness, No Headache Psych : complaining of anxiety and depression, suicidal ideation Heme/Lymph: No Bruising, No Bleeding,No Lymphadenopathy Endocrine : No Polyuria, No Polydipsia, No Temperature Intolerance PMFSH Past Medical History Medical History Asthma Suicidal ideation MDD (major depressive disorder), recurrent episode, severe Chest pain Acute anxiety COVID-19 Full body hives Major depression Dizziness Suicide attempt UTI (urinary tract infection) Acetaminophen overdose COVID History of attempted suicide History of non-suicidal self-harm Hypomagnesemia Suicide attempt Suicide attempt by acetaminophen overdose Acetaminophen overdose Depression Diabetes type 2, controlled Borderline personality disorder PTSD (post-traumatic stress disorder) Overdose GERD (gastroesophageal reflux disease) Mood disorder Hyperlipidemia Bronchitis Social History Social History Household Members: Other Household Members Other:: jail Housing: Other Housing Other:: [facility] Do you presently have visiting nurse or other home services: No Unable to assess alcohol history related to: Unknown Alcohol intake: never Comment: sitter in room Patient Tobacco Use Status: Current everyday Tobacco user Tobacco use type: Cigarette Cigarette Packs Per Day: 1 Cigarettes Per Day: 20.0 Years Smoked: 22 e-Cigarette/Vaping Use: Currently Using Second Hand Smoke Exposure: No Use of substances other than those prescribed or required for medical reasons: No Substance Use Type: Caffiene Advance Directives: No Advance Directives Information Provided: No Do you have a plan to hurt others: No Plan Patient : No service: No Current occupational status: unemployed and disabled Sexual orientation: Straight/Heterosexual Physical Exam 2 Vital Signs: Vital Signs: Last Vital Signs Temp 98 F 08/04/24 19:54 Pulse 113 H 08/04/24 19:54 Resp 18 08/04/24 19:54 BP 147/88 H 08/04/24 19:54 Pulse Ox 98 08/04/24 19:54 O2 Del Method Room Air 08/04/24 19:54 BMI result Body Mass Index 38.2 Const: Other: Appearance: Alert. Oriented X3. No acute distress. Eyes: Pupils equal, round and reactive to light. ENT: Pharynx normal. Neck: Normal inspection. Neck supple. No lymph nodes noted. No crepitus CVS: Normal heart rate and rhythm. Pulses normal. Normal S1 and S2 Respiratory: No respiratory distress. Breath sounds normal. No Wheezing. No rales Abdomen: Soft and nontender. No rigidity. No distention. Skin: patient has numerous superficial lacerations to both forearms and abdomen, bleeding controlled, none of them require stitches Extremities: No lower extremity edema. No Lacerations. No Rash Neuro: Oriented X 3. No motor deficit. No sensory deficit. Moving all extremities. No slurred speech. CN 2 through 12 grossly intact Psych: calm, cooperative, normal affect Medical Decision Making Medical Decision Making [facility] Narrative: my interpretation of labs: Patient's hematology and chemistry within normal limits, toxicology negative for salicylates, acetaminophen alcohol and drugs - care team spoke with the patient, patient states that she feels better, no longer suicidal or anxious. The care team spoke with the patient's jail, they are willing to take her back. Differential Diagnosis Differential Diagnoses: The differential diagnosis associated with the presentation includes ( Anxiety, depression) Admission/Observation Consideration of admission/observation: Escalation of care including admission/observation considered ( admission to psychiatry was considered.) Lab Data [facility] Lab Attestation statement: I reviewed the patient's lab results. 08/04/24 20:36 08/04/24 20:36 Labs: Lab Results 08/04/24 08/04/24 Range/Units 20:28 20:36 WBC 7.4 (4.8-10.8) X10*3/uL RBC 4.17 L (4.20-5.50) X10*6/uL Hgb 13.3 (12.0-16.0) g/dl Hct 38.6 (37.0-47.0) % MCV 92.6 (80.0-98.0) fL MCH 31.9 (27.0-33.0) pg MCHC 34.5 (31.0-35.0) g/dl RDW 12.8 (11.0-16.0) % Plt Count 263 (160-400) X10*3/uL MPV 9.2 L (9.4-12.3) fL Immature Gran % (Auto) 0.5 H (0.0-0.4) % Neut % (Auto) 67.2 (45-73) % Lymph % (Auto) 20.1 (20-40) % [place] % (Auto) 8.2 (2-11) % Eos % (Auto) 3.5 (0-4) % Baso % (Auto) 0.5 (0-2) % Lymph # (Auto) 1.5 (1.2-4.9) X10*3/uL Hawkins # (Auto) 0.6 (0.1-1.2) X10*3/uL Eos # (Auto) 0.3 (0.0-0.4) X10*3/uL Baso # (Auto) 0.0 (0.0-0.2) X10*3/uL Abs Immat Gran (auto) 0.04 H (0.00-0.03) X10*3/uL Absolute Neuts (auto) 5.0 (2.0-8.3) x10*3/uL Absolute Nucleated RBC 0.000 (0.0-0.012) X10*3/uL Nucleated RBC % (auto) 0.0 (0.0-0.2) /100WBC Sodium 141 (135-145) mmol/L Potassium 3.7 (3.3-5.1) mmol/L Chloride 106 (96-108) mmol/L Carbon Dioxide 23 (22-29) mmol/L Anion Gap 16 (12-20) BUN 9 (9-16) mg/dL Creatinine 0.77 (0.5-1.4) mg/dL Estim Creat Clear Calc 106.3 Estimated GFR > 60 Random Glucose 167 H (60-115) mg/dL Calcium 9.8 (8.4-10.2) mg/dL Total Bilirubin 0.3 (0.0-1.0) mg/dL AST 24 (5-31) U/L ALT 21 (0-31) U/L Alkaline Phosphatase 136 H (39-117) U/L Total Protein 7.1 (6.5-8.0) g/dL Albumin 4.5 (3.5-5.0) g/dL Urine Color Yellow Urine Appearance Clear Urine pH 5.5 (5.0-9.0) Ur Specific [place] 1.010 (1.005-1.025) Urine Protein Negative (Neg-Trace) mg/dL Urine Glucose (UA) Negative (Negative) mg/dL Urine Ketones Negative (Negative) mg/dL Urine Blood Negative (Negative) Urine Nitrite Negative (Negative) Ur Leukocyte Esterase Trace H (Negative) Urine RBC 0-2 (0-2) /HPF Urine WBC 0-5 (0-5) /HPF Ur Squamous Epith Cells 0-2 (0-2) /HPF Urine Bacteria None Seen (None Seen) Hyaline Casts 0-2 (0-2) /LPF Urine Test NEGATIVE (NEGATIVE) Salicylates < 5.0 L (15-30) mg/dL Urine Opiates Screen Not Detected (Not Detect) Ur Buprenorphine Scrn Not Detected (Not Detect) ng/mL Ur Oxycodone Screen Not Detected (Not Detect) ng/mL Urine Methadone Screen Not Detected (Not Detect) ng/mL Urine Fentanyl Screen Not Detected (Not Detect) Acetaminophen < 3 (<30) mcg/mL Ur Barbiturates Screen Not Detected (Not Detect) Ur Phencyclidine Scrn Not Detected (Not Detect) Ur Amphetamines Screen Not Detected (Not Detect) U Benzodiazepines Scrn Not Detected (Not Detect) Urine Cocaine Screen Not Detected (Not Detect) U Marijuana (THC) Screen Not Detected (Not Detect) Ethyl Alcohol < 10 mg/dL COVID-19 (NICK) Negative (Negative) COVID-19 Clin Com See Note Critical Care Time Critical Care Time Critical Care Time: Yes Total Critical Care Time: 30 Attestation: I have personally provided critical care time. Time includes review of lab data, radiology results, discussion with consultants, and monitoring for potential decompensation. Intervention performed as documented. Discharge Plan Discharge Clinical Impression: Anxiety, Superficial laceration Patient Disposition: Home, Self-Care Instructions: Anxiety (ED) Additional Instructions: Please follow-up with your primary care physician tomorrow. If you have any worsening or new symptoms, please return to the emergency room or call 911 Prescriptions: No Action fluoxetine 40 mg capsule 40 mg PO DAILY haloperidol 5 mg tablet 5 mg PO BID atorvastatin 10 mg tablet 10 mg PO DAILY clozapine 100 mg tablet 100 mg PO BEDTIME amlodipine 5 mg tablet 5 mg PO DAILY pantoprazole 20 mg tablet,delayed release (DR/EC) 20 mg PO BID lorazepam 0.5 mg tablet 0.5 mg PO Q4H PRN (Reason: Anxiety) buspirone 10 mg tablet 10 mg PO BID benztropine 1 mg tablet 1 mg PO BID montelukast 10 mg tablet 10 mg PO DAILY albuterol sulfate 90 mcg/actuation HFA aerosol inhaler 2 puff inhalation Q6H PRN (Reason: Wheezing) fluphenazine HCl 5 mg tablet 5 mg PO BID prazosin 2 mg capsule 2 mg PO BID mirtazapine 7.5 mg tablet 7.5 mg PO BEDTIME famotidine 20 mg Tablet 20 mg PO TIDWM PRN (Reason: GERD) 30 Days Qty: 90 0RF metformin 500 mg tablet 500 mg PO BID zaleplon 5 mg capsule 5 mg PO BEDTIME miconazole nitrate [Athlete's Foot] 2 % powder 1 appl topical BID Qty: 85 0RF Interventions: [place]-Suicide Risk Severity Scale Last Done: 08/04/24 21:36 Print Language: Hebrew
[2024-08-04 20:47] LABS: COVID-19 Test Negative (Negative); IDNOW Serial# 08D9AD1C
[2024-08-04 20:56] LABS: Alanine Aminotransferase 21 U/L (0-31); Albumin Level 4.5 g/dL (3.5-5.0); Alkaline Phosphatase 136 U/L (39-117); Amphetamine Screen Urine Not Detected (Not Detect); Anion Gap 16 (12-20); Aspartate Amino Transferase 24 U/L (5-31); Barbiturates, Urine Not Detected (Not Detect); Benzodiazepines Screen Urine Not Detected (Not Detect); Bilirubin Total 0.3 mg/dL (0.0-1.0); Blood Urea Nitrogen 9 mg/dL (9-16); Buprenorphine Scr Not Detected (Not Detect); Calcium 9.8 mg/dL (8.4-10.2); Cannabinoid Screen Urine Not Detected (Not Detect); Carbon Dioxide 23 mmol/L (22-29); Chloride 106 mmol/L (96-108); Cocaine Screen Urine Not Detected (Not Detect); Creatinine Clr Calc Pharmacy 106.3; Estimated Glomerular Filt Rate > 60; Ethanol < 10 mg/dL; Fentanyl, urine Not Detected (Not Detect); Glucose Random 167 mg/dL (60-115); Methadone Screen, Urine Not Detected (Not Detect); Opiate Screen Urine Not Detected (Not Detect); Oxycodone Screen Urine Not Detected (Not Detect); Phencyclidine Screen Urine Not Detected (Not Detect); Potassium 3.7 mmol/L (3.3-5.1); Sodium 141 mmol/L (135-145); Total Protein 7.1 g/dL (6.5-8.0)
[2024-08-04 20:59] LABS: Acetaminophen LAB < 3 mcg/mL (<30); Salicylate < 5.0 mg/dL (15-30)
--- NOTE | 2024-08-04 21:31 | PC.NURSE ---
pt from Main ED assume care of pt at this time
--- NOTE | 2024-08-04 21:39 | PC.NURSE ---
pt states, I don't think, I need to be in my penitentiary. When asked why, doesn't she like her penitentiary. Pt states, I like my penitentiary, but I think I need to be locked up! Pt asked for and received octaviano yudelka, warm blanket, and then turned the TV on for her, will cont plan of care
--- NOTE | 2024-08-04 21:43 | PC.NURSE ---
pt to desk, and ask, can I see the care team and then go home? Informed pt, that I would tell the care team, but she could not attempt to harm herself and then go home.
--- NOTE | 2024-08-04 23:18 | PC.NURSE ---
pt given back her belongings, d/c instructions, pt amb to lobby, with this nurse, to wait on her lyte ride home
[2024-08-04 23:19] VITALS: BP 144/99; PULSE 108; RESP 18; TEMP 36.8; O2SAT 96
== END 2024-08-04 23:20 | disposition home or self-care (01) ==
PROVIDERS: Physician Assistant Medical; Emergency Provider Emergency Medicine; PCP Nurse Practitioner Family
DX: S31.119A Laceration without foreign body of abdominal wall, unspecified quadrant without penetration into peritoneal cavity, initial encounter (principal); X78.9XXA Intentional self-harm by unspecified sharp object, initial encounter; Y93.9 Activity, unspecified; Y92.9 Unspecified place or not applicable; Y99.9 Unspecified external cause status; F41.9 Anxiety disorder, unspecified; Z79.899 Other long term (current) drug therapy; E11.9 Type 2 diabetes mellitus without complications; F39 Unspecified mood [affective] disorder; Z11.52 Encounter for screening for COVID-19
CPT/HCPCS: 36415; 80053; 80143; 80179; 80307; 81001; 81025; 85025; 87635; 99284; 99285; S9485

== ENCOUNTER 2024-09-09 09:32 | Outpatient (REF) | payer MEDICARE, MEDICAID, SELFPAY ==
[2024-09-09 09:51] LABS: MANUAL DIFF FLAG NO
[2024-09-09 10:51] LABS: Basophils Percent Auto 0.5 % (0-2); Eosinophils Absolute Auto 0.5 X10*3/uL (0.0-0.4); Eosinophils Percent Auto 7.3 % (0-4); Hematocrit 40.1 % (37.0-47.0); Hemoglobin 13.4 g/dl (12.0-16.0); Imm Gran Abs Auto 0.05 X10*3/uL (0.00-0.03); Imm Gran Pct Auto 0.8 % (0.0-0.4); Lymphocytes Absolute Auto 1.2 X10*3/uL (1.2-4.9); Lymphocytes Percent Auto 19.1 % (20-40); Mean Corpuscular HGB Conc 33.4 g/dl (31.0-35.0); Mean Corpuscular Hemoglobin 30.9 pg (27.0-33.0); Mean Corpuscular Volume 92.6 fL (80.0-98.0); Mean Platelet Volume 9.5 fL (9.4-12.3); Monocytes Absolute Auto 0.5 X10*3/uL (0.1-1.2); Monocytes Percent Auto 8.4 % (2-11); Neut%MD 63.9 %; Neutrophils Absolute Auto 4.1 x10*3/uL (2.0-8.3); Neutrophils Percent Auto 63.9 % (45-73); Platelet Count 276 X10*3/uL (160-400); Red Blood Count 4.33 X10*6/uL (4.20-5.50); Red Cell Distribution Width 12.4 % (11.0-16.0); WBCANC 6.5 X10*3/uL; White Blood Count 6.5 X10*3/uL (4.8-10.8)
== END 2024-09-09 09:33 | disposition home or self-care (01) ==
LOC: HO.LABR 09:32
PROVIDERS: PCP Nurse Practitioner Family; Visit Provider Psychiatry & Neurology Psychiatry
DX: Z79.899 Other long term (current) drug therapy (principal)
CPT/HCPCS: 36415; 85025

== ENCOUNTER 2024-09-23 10:04 | Outpatient (REF) | payer MEDICARE, MEDICAID, SELFPAY ==
[2024-09-23 10:20] LABS: MANUAL DIFF FLAG NO
[2024-09-23 11:18] LABS: Basophils Percent Auto 0.4 % (0-2); Eosinophils Absolute Auto 0.3 X10*3/uL (0.0-0.4); Eosinophils Percent Auto 3.9 % (0-4); Hematocrit 40.3 % (37.0-47.0); Hemoglobin 13.8 g/dl (12.0-16.0); Imm Gran Abs Auto 0.05 X10*3/uL (0.00-0.03); Imm Gran Pct Auto 0.7 % (0.0-0.4); Lymphocytes Absolute Auto 1.4 X10*3/uL (1.2-4.9); Lymphocytes Percent Auto 18.9 % (20-40); Mean Corpuscular HGB Conc 34.2 g/dl (31.0-35.0); Mean Corpuscular Hemoglobin 31.4 pg (27.0-33.0); Mean Corpuscular Volume 91.6 fL (80.0-98.0); Mean Platelet Volume 9.4 fL (9.4-12.3); Monocytes Absolute Auto 0.7 X10*3/uL (0.1-1.2); Monocytes Percent Auto 9.3 % (2-11); Neutrophils Absolute Auto 5.1 x10*3/uL (2.0-8.3); Neutrophils Percent Auto 66.8 % (45-73); Platelet Count 315 X10*3/uL (160-400); Red Cell Distribution Width 12.4 % (11.0-16.0); White Blood Count 7.6 X10*3/uL (4.8-10.8)
== END 2024-09-23 10:05 | disposition home or self-care (01) ==
LOC: HO.LABR 10:04
PROVIDERS: PCP Nurse Practitioner Family; Visit Provider Psychiatry & Neurology Psychiatry
DX: Z79.899 Other long term (current) drug therapy (principal)
CPT/HCPCS: 36415; 85025

== ENCOUNTER 2024-09-25 20:02 | Emergency (ER) | payer MEDICARE, MEDICAID, SELFPAY ==
[2024-09-25 20:23] VITALS: BP 150/90; BP 161/100; PULSE 110; PULSE 116; RESP 20; TEMP 36.9; O2SAT 96; O2SAT 98; BMI 39.7
[2024-09-25] MEDS: Fluconazole 150 MG TABLET PO (20:36)
--- NOTE | 2024-09-25 20:49 | ED_ITS ---
HPI - Skin/Abscess/Foreign Bdy General Chief complaint: Skin/Abscess/Foreign Body Stated complaint: FROM [facility] RASH UNDER BREAST PER EMS Time Seen by Provider: 09/25/24 20:28 Source: patient Limitations: no limitations History of Present Illness ED Provider: Carolina salomon PA-C HPI narrative: 48-year-old female with extensive psychiatric history who presents with rash underneath bilateral breasts for weeks. Patient states she was seen by her healthcare provider and prescribed an antifungal cream. She has been using the cream for 3 days. She has not had relief of symptoms. Patient states the rash is red, raw, itchy and painful. Denies fever. Related Data Home Medications ?Medication ?Instructions ?Recorded ?Confirmed albuterol sulfate 90 mcg/actuation 2 puff inhalation Q6H PRN Wheezing 06/24/24 08/04/24 aerosol inhaler amlodipine 5 mg tablet 5 mg PO DAILY 06/24/24 08/04/24 atorvastatin 10 mg tablet 10 mg PO DAILY 06/24/24 08/04/24 benztropine 1 mg tablet 1 mg PO BID 06/24/24 08/04/24 buspirone 10 mg tablet 10 mg PO BID 06/24/24 08/04/24 clozapine 100 mg tablet 100 mg PO BEDTIME 06/24/24 08/04/24 fluoxetine 40 mg capsule 40 mg PO DAILY 06/24/24 08/04/24 fluphenazine HCl 5 mg tablet 5 mg PO BID 06/24/24 08/04/24 haloperidol 5 mg tablet 5 mg PO BID 06/24/24 08/04/24 lorazepam 0.5 mg tablet 0.5 mg PO Q4H PRN Anxiety 06/24/24 08/04/24 mirtazapine 7.5 mg tablet 7.5 mg PO BEDTIME 06/24/24 08/04/24 montelukast 10 mg tablet 10 mg PO DAILY 06/24/24 08/04/24 pantoprazole 20 mg tablet,delayed 20 mg PO BID 06/24/24 08/04/24 release prazosin 2 mg capsule 2 mg PO BID 06/24/24 08/04/24 metformin 500 mg tablet 500 mg PO BID 07/15/24 08/04/24 zaleplon 5 mg capsule 5 mg PO BEDTIME 07/15/24 08/04/24 Previous Rx's ?Medication ?Instructions ?Recorded famotidine 20 mg tablet 20 mg PO TIDWM PRN GERD 30 days 06/27/24 #90 tabs miconazole nitrate 2 % topical 1 appl topical BID #85 grams 07/22/24 powder (Athlete's Foot) nystatin 100,000 unit/gram topical 1 appl topical BID #60 grams 09/25/24 powder Allergies Allergy/AdvReac Type Severity Reaction Status Date / Time azithromycin [AZITHROMYCIN] Allergy Severe Rash Verified 09/25/24 20:25 Fish Containing Products Allergy Severe Anaphylaxis Verified 09/25/24 20:25 codeine [Codeine] Allergy Intermediate Rash Verified 09/25/24 20:25 Penicillins Allergy Intermediate Rash Verified 09/25/24 20:25 prednisone [Prednisone] Allergy Intermediate Rash Verified 09/25/24 20:25 Sulfa (Sulfonamide Allergy Intermediate Rash Verified 09/25/24 20:25 Antibiotics) [Sulfa (Sulfonamides)] ziprasidone [From Geodon] Allergy Intermediate dysuria, Verified 09/25/24 20:25 rash lithium Allergy Rash Verified 09/25/24 20:25 Review of Systems Review of Systems: Yes all other systems are reviewed and are negative Constitutional: Constitutional: Denies fatigue and Denies fever(s) Cardiovascular: Cardiovascular: Denies chest pain and Denies dyspnea Respiratory: Respiratory: Denies dyspnea Gastrointestinal: Gastrointestinal: Denies abdominal pain Integumentary/Breasts: Skin/Breast: Reports pruritus, Reports erythema and Reports rash Endocrine: Endocrine: Denies fatigue PMFSH Past Medical History Attestation statement: The following information was validated with the patient. Medical History Asthma Suicidal ideation MDD (major depressive disorder), recurrent episode, severe Chest pain Acute anxiety COVID-19 Full body hives Major depression Dizziness Suicide attempt UTI (urinary tract infection) Acetaminophen overdose COVID History of attempted suicide History of non-suicidal self-harm Hypomagnesemia Suicide attempt Suicide attempt by acetaminophen overdose Acetaminophen overdose Depression Diabetes type 2, controlled Borderline personality disorder PTSD (post-traumatic stress disorder) Overdose GERD (gastroesophageal reflux disease) Mood disorder Hyperlipidemia Bronchitis Social History Social History Household Members: Other Household Members Other:: residential Housing: Other Housing Other:: [facility] Do you presently have visiting nurse or other home services: No Unable to assess alcohol history related to: Unknown Alcohol intake: never Comment: sitter in room Patient Tobacco Use Status: Current everyday Tobacco user Tobacco use type: Cigarette Cigarette Packs Per Day: 1 Cigarettes Per Day: 20.0 Years Smoked: 22 e-Cigarette/Vaping Use: Currently Using Second Hand Smoke Exposure: No Substance Use Type: Caffiene Advance Directives: No Advance Directives Information Provided: Yes service: No Current occupational status: unemployed and disabled Sexual orientation: Straight/Heterosexual Physical Exam Vital Signs: Vital Signs: Last Vital Signs Temp 98.4 F 09/25/24 20:23 Pulse 116 H 09/25/24 20:23 Resp 20 09/25/24 20:23 BP 161/100 H 09/25/24 20:23 Pulse Ox 96 09/25/24 20:23 O2 Del Method Room Air 09/25/24 20:23 BMI result Body Mass Index 39.7 Const: Other: Alert, appears older than stated age Orientation/consciousness: patient oriented x3 Chest: Other: Erythematous, moist, rash noted within the intertriginous regions underneath the breasts, it smells of fungus Resp: Other: Nonlabored respiration Cardio: Other: Normal peripheral perfusion Skin: Other: Skin otherwise warm and dry the rash is focal to beneath the breasts Neuro: General: patient oriented x3, no focal motor deficits and CN's II-XI intact bilaterally Psych: Other: Calm cooperative Medications Administered Discontinued Medications Generic Name Dose Route Start Last Admin Trade Name Freq PRN Reason Stop Dose Admin Fluconazole 150 mg 09/25/24 20:28 09/25/24 20:36 Fluconazole 150 Mg Tablet PO 09/25/24 20:29 150 mg ONCE ONE Administration Medical Decision Making Medical Decision Making MDM Narrative: 48-year-old female with extensive psychiatric history who presents with rash underneath bilateral breasts for weeks. Patient states she was seen by her healthcare provider and prescribed an antifungal cream. She has been using the cream for 3 days. She has not had relief of symptoms. Patient states the rash is red, raw, itchy and painful. Denies fever. Problem: Psychiatric illness History: Per patient I have considered the following differential diagnoses: Cellulitis, purulent cellulitis, candidal infection, contact dermatitis, shingles Plan: The patient's rashes consistent with Sonia, she has an appropriate product to use, however I feel she could benefit from a drying agent such as nystatin powder versus an ointment. We will give her a 1 time dose of Diflucan, sending her with the powder. Sending her with the additional home care instructions. The patient does not require imaging or labs at this time. She can continue to follow up with her primary care provider. Discharge Plan Discharge Clinical Impression: Sonia infection Patient Disposition: Home, Self-Care Instructions: Yeast Infection (ED) Additional Instructions: You have a fungal infection of the skin beneath your breasts. See home care instructions. You need to keep the area clean, dry in exposed to light and air as often as you can. Do not wear tight-fitting clothing, wear loose fitting clothing. You received a 1 time dose of an oral antifungal medication to help this infection. I am sending you with a powder called nystatin, use it as directed for the infection. Stop using the topical ointment that you were prescribed. Follow up with your primary care provider as needed. Prescriptions: New nystatin 100,000 unit/gram powder 1 appl topical BID Qty: 60 0RF No Action fluoxetine 40 mg capsule 40 mg PO DAILY haloperidol 5 mg tablet 5 mg PO BID atorvastatin 10 mg tablet 10 mg PO DAILY clozapine 100 mg tablet 100 mg PO BEDTIME amlodipine 5 mg tablet 5 mg PO DAILY pantoprazole 20 mg tablet,delayed release (DR/EC) 20 mg PO BID lorazepam 0.5 mg tablet 0.5 mg PO Q4H PRN (Reason: Anxiety) buspirone 10 mg tablet 10 mg PO BID benztropine 1 mg tablet 1 mg PO BID montelukast 10 mg tablet 10 mg PO DAILY albuterol sulfate 90 mcg/actuation HFA aerosol inhaler 2 puff inhalation Q6H PRN (Reason: Wheezing) fluphenazine HCl 5 mg tablet 5 mg PO BID prazosin 2 mg capsule 2 mg PO BID mirtazapine 7.5 mg tablet 7.5 mg PO BEDTIME famotidine 20 mg Tablet 20 mg PO TIDWM PRN (Reason: GERD) 30 Days Qty: 90 0RF metformin 500 mg tablet 500 mg PO BID zaleplon 5 mg capsule 5 mg PO BEDTIME miconazole nitrate [Athlete's Foot] 2 % powder 1 appl topical BID Qty: 85 0RF Print Language: South Korean
[2024-09-25 21:00] VITALS: BP 161/100; PULSE 116; RESP 20; TEMP 36.9; O2SAT 96
== END 2024-09-25 21:01 | disposition home or self-care (01) ==
PROVIDERS: Emergency Provider Emergency Medicine; PCP Nurse Practitioner Family
DX: B37.2 Candidiasis of skin and nail (principal)
CPT/HCPCS: 99282; 99283

== ENCOUNTER 2024-09-30 00:37 | Emergency (ER) | payer MEDICARE, MEDICAID, SELFPAY ==
[2024-09-30 00:44] VITALS: BP 158/95; BP 175/97; PULSE 109; PULSE 124; RESP 18; TEMP 36.3; O2SAT 97; O2SAT 98; BMI 38.6
--- NOTE | 2024-09-30 01:03 | ED.PSYCH ---
HPI - Psych General Chief Complaint: Psychiatric Symptoms Stated Complaint: auditory hallucinations x2 hours Time Seen by Provider: 09/30/24 01:02 Source: patient Mode of arrival: EMS Limitations: no limitations History of Present Illness ED Provider: HPI Narrative: Patient's history of PTSD bipolar disorder post borderline personality disorder been here multiple times for hallucinations comes here for last 2 hours patient has been having auditory and visual hallucination wanted to harm herself by overdose similar to that in the past no HI at this time scratching her forehead scared spoke to therapist for half an hour prior to arrival tried her coping skills without much relief Related Data Home Medications ?Medication ?Instructions ?Recorded ?Confirmed albuterol sulfate 90 mcg/actuation 2 puff inhalation Q6H PRN Wheezing 06/24/24 08/04/24 aerosol inhaler amlodipine 5 mg tablet 5 mg PO DAILY 06/24/24 08/04/24 atorvastatin 10 mg tablet 10 mg PO DAILY 06/24/24 08/04/24 benztropine 1 mg tablet 1 mg PO BID 06/24/24 08/04/24 buspirone 10 mg tablet 10 mg PO BID 06/24/24 08/04/24 clozapine 100 mg tablet 100 mg PO BEDTIME 06/24/24 08/04/24 fluoxetine 40 mg capsule 40 mg PO DAILY 06/24/24 08/04/24 fluphenazine HCl 5 mg tablet 5 mg PO BID 06/24/24 08/04/24 haloperidol 5 mg tablet 5 mg PO BID 06/24/24 08/04/24 lorazepam 0.5 mg tablet 0.5 mg PO Q4H PRN Anxiety 06/24/24 08/04/24 mirtazapine 7.5 mg tablet 7.5 mg PO BEDTIME 06/24/24 08/04/24 montelukast 10 mg tablet 10 mg PO DAILY 06/24/24 08/04/24 pantoprazole 20 mg tablet,delayed 20 mg PO BID 06/24/24 08/04/24 release prazosin 2 mg capsule 2 mg PO BID 06/24/24 08/04/24 metformin 500 mg tablet 500 mg PO BID 07/15/24 08/04/24 zaleplon 5 mg capsule 5 mg PO BEDTIME 07/15/24 08/04/24 Previous Rx's ?Medication ?Instructions ?Recorded famotidine 20 mg tablet 20 mg PO TIDWM PRN GERD 30 days 06/27/24 #90 tabs miconazole nitrate 2 % topical 1 appl topical BID #85 grams 07/22/24 powder (Athlete's Foot) nystatin 100,000 unit/gram topical 1 appl topical BID #60 grams 09/25/24 powder Allergies Allergy/AdvReac Type Severity Reaction Status Date / Time azithromycin [AZITHROMYCIN] Allergy Severe Rash Verified 09/25/24 20:25 Fish Containing Products Allergy Severe Anaphylaxis Verified 09/25/24 20:25 codeine [Codeine] Allergy Intermediate Rash Verified 09/25/24 20:25 Penicillins Allergy Intermediate Rash Verified 09/25/24 20:25 prednisone [Prednisone] Allergy Intermediate Rash Verified 09/25/24 20:25 Sulfa (Sulfonamide Allergy Intermediate Rash Verified 09/25/24 20:25 Antibiotics) [Sulfa (Sulfonamides)] ziprasidone [From Geodon] Allergy Intermediate dysuria, Verified 09/25/24 20:25 rash lithium Allergy Unknown Rash Verified 09/30/24 00:51 Review of Systems Review of Systems: Yes all other systems are reviewed and are negative PMFSH Past Medical History Medical History Asthma Suicidal ideation MDD (major depressive disorder), recurrent episode, severe Chest pain Acute anxiety COVID-19 Full body hives Major depression Dizziness Suicide attempt UTI (urinary tract infection) Acetaminophen overdose COVID History of attempted suicide History of non-suicidal self-harm Hypomagnesemia Suicide attempt Suicide attempt by acetaminophen overdose Acetaminophen overdose Depression Diabetes type 2, controlled Borderline personality disorder PTSD (post-traumatic stress disorder) Overdose GERD (gastroesophageal reflux disease) Mood disorder Hyperlipidemia Bronchitis Social History Social History Household Members: Other Household Members Other:: longterm Housing: Other Housing Other:: skilled nursing [facility] Do you presently have visiting nurse or other home services: No Unable to assess alcohol history related to: Unknown Alcohol intake: never Comment: sitter in room Patient Tobacco Use Status: Current everyday Tobacco user Tobacco use type: Cigarette Cigarette Packs Per Day: 1 Cigarettes Per Day: 20.0 Years Smoked: 22 Smoked in Last 30 Days: Yes e-Cigarette/Vaping Use: Currently Using Second Hand Smoke Exposure: No Use of substances other than those prescribed or required for medical reasons: No Substance Use Type: Caffiene Patient : No service: No Current occupational status: unemployed and disabled Sexual orientation: Straight/Heterosexual Physical Exam Vital Signs: Vital Signs: Last Vital Signs Temp 97.3 F 09/30/24 00:44 Pulse 109 H 09/30/24 00:44 Resp 18 09/30/24 00:44 BP 175/97 H 09/30/24 00:44 Pulse Ox 97 09/30/24 00:44 O2 Del Method Room Air 09/30/24 00:44 BMI result Body Mass Index 38.6 Appearance: Alert. Oriented X3. No acute distress. Eyes: PERRLA, No Nystagmus ENT: Pharynx normal. Oral Mucosa moist Neck: Normal inspection. Neck supple. CVS: Normal heart rate and rhythm. Pulses normal. Respiratory: No respiratory distress. Equal air entry bilateral, no wheezing/rales/rhonchi Abdomen: Soft and nontender. Bowel sounds are present, no mass palpable, no CVA tenderness Skin: Skin warm and dry. Normal skin color. Normal skin turgor. Extremities: No lower extremity edema. No calf tenderness psych: Feel scared and suicidal Neuro: Oriented X 3. No motor deficit. No sensory deficit.No cerebellar signs , cranial nerves II-XII intact Medical Decision Making Medical Decision Making MDM Narrative: Patient with major depressive disorder bipolar disorder PTSD comes here for thoughts of harming herself by overdose will get care team involved Discharge Plan Discharge Clinical Impression: Depression with suicidal ideation Patient Disposition: Still a Patient Prescriptions: No Action fluoxetine 40 mg capsule 40 mg PO DAILY haloperidol 5 mg tablet 5 mg PO BID atorvastatin 10 mg tablet 10 mg PO DAILY clozapine 100 mg tablet 100 mg PO BEDTIME amlodipine 5 mg tablet 5 mg PO DAILY pantoprazole 20 mg tablet,delayed release (DR/EC) 20 mg PO BID lorazepam 0.5 mg tablet 0.5 mg PO Q4H PRN (Reason: Anxiety) buspirone 10 mg tablet 10 mg PO BID benztropine 1 mg tablet 1 mg PO BID montelukast 10 mg tablet 10 mg PO DAILY albuterol sulfate 90 mcg/actuation HFA aerosol inhaler 2 puff inhalation Q6H PRN (Reason: Wheezing) fluphenazine HCl 5 mg tablet 5 mg PO BID prazosin 2 mg capsule 2 mg PO BID mirtazapine 7.5 mg tablet 7.5 mg PO BEDTIME famotidine 20 mg Tablet 20 mg PO TIDWM PRN (Reason: GERD) 30 Days Qty: 90 0RF metformin 500 mg tablet 500 mg PO BID zaleplon 5 mg capsule 5 mg PO BEDTIME miconazole nitrate [Athlete's Foot] 2 % powder 1 appl topical BID Qty: 85 0RF nystatin 100,000 unit/gram powder 1 appl topical BID Qty: 60 0RF Interventions: [place]-Suicide Risk Severity Scale Last Done: 09/30/24 00:53 Print Language: Serbian
[2024-09-30] MEDS: clonazePAM 1 MG TABLET PO (01:29)
[2024-09-30 02:41] VITALS: BP 138/86; PULSE 100; RESP 18; TEMP 36.5; O2SAT 94
[2024-09-30 04:55] VITALS: BP 132/75; PULSE 101; RESP 18; TEMP 36.8; O2SAT 95
--- NOTE | 2024-09-30 09:52 | PC.NURSE ---
Patient denies SI/HI plan is to return to [facility], care team to provide lyft to bring patient back to [facility]
[2024-09-30 10:48] VITALS: BP 128/70; PULSE 88; RESP 18; TEMP 36.8; O2SAT 98
== END 2024-09-30 10:49 | disposition home or self-care (01) ==
PROVIDERS: Emergency Provider Emergency Medicine Emergency Medical Services; PCP Nurse Practitioner Family
DX: F43.10 Post-traumatic stress disorder, unspecified (principal); F31.9 Bipolar disorder, unspecified; R45.851 Suicidal ideations; Z79.899 Other long term (current) drug therapy
CPT/HCPCS: 99284

== ENCOUNTER 2024-09-30 20:00 | Inpatient (IN) | payer MEDICARE, MEDICAID, SELFPAY ==
[2024-09-30 20:08] VITALS: BP 180/118; PULSE 108; O2SAT 97
[2024-09-30 20:09] VITALS: BP 157/95; PULSE 97; RESP 19; TEMP 36.6; O2SAT 98; BMI 36.7
--- NOTE | 2024-09-30 20:29 | ED.PSYCH ---
HPI - Psych General Chief Complaint: Psychiatric Symptoms Stated Complaint: si, self harm Time Seen by Provider: 09/30/24 20:11 Source: patient Mode of arrival: ambulatory Limitations: no limitations History of Present Illness ED Provider: Dr. Eileen Ryan HPI Narrative: patient comes to the emergency room complaining of visual hallucinations, auditory hallucinations. Patient states that she is seeing her father. Patient states that she broke CD with the sharp edges started cutting herself in both upper extremities and in the abdomen. Denies HI. Patient states that she is afraid of the people in her intermediate. Related Data Home Medications ?Medication ?Instructions ?Recorded ?Confirmed albuterol sulfate 90 mcg/actuation 2 puff inhalation Q6H PRN Wheezing 06/24/24 08/04/24 aerosol inhaler amlodipine 5 mg tablet 5 mg PO DAILY 06/24/24 08/04/24 atorvastatin 10 mg tablet 10 mg PO DAILY 06/24/24 08/04/24 benztropine 1 mg tablet 1 mg PO BID 06/24/24 08/04/24 buspirone 10 mg tablet 10 mg PO BID 06/24/24 08/04/24 clozapine 100 mg tablet 100 mg PO BEDTIME 06/24/24 08/04/24 fluoxetine 40 mg capsule 40 mg PO DAILY 06/24/24 08/04/24 fluphenazine HCl 5 mg tablet 5 mg PO BID 06/24/24 08/04/24 haloperidol 5 mg tablet 5 mg PO BID 06/24/24 08/04/24 lorazepam 0.5 mg tablet 0.5 mg PO Q4H PRN Anxiety 06/24/24 08/04/24 mirtazapine 7.5 mg tablet 7.5 mg PO BEDTIME 06/24/24 08/04/24 montelukast 10 mg tablet 10 mg PO DAILY 06/24/24 08/04/24 pantoprazole 20 mg tablet,delayed 20 mg PO BID 06/24/24 08/04/24 release prazosin 2 mg capsule 2 mg PO BID 06/24/24 08/04/24 metformin 500 mg tablet 500 mg PO BID 07/15/24 08/04/24 zaleplon 5 mg capsule 5 mg PO BEDTIME 07/15/24 08/04/24 Previous Rx's ?Medication ?Instructions ?Recorded famotidine 20 mg tablet 20 mg PO TIDWM PRN GERD 30 days 06/27/24 #90 tabs miconazole nitrate 2 % topical 1 appl topical BID #85 grams 07/22/24 powder (Athlete's Foot) nystatin 100,000 unit/gram topical 1 appl topical BID #60 grams 09/25/24 powder Allergies Allergy/AdvReac Type Severity Reaction Status Date / Time azithromycin [AZITHROMYCIN] Allergy Severe Rash Verified 09/30/24 20:17 Fish Containing Products Allergy Severe Anaphylaxis Verified 09/30/24 20:17 codeine [Codeine] Allergy Intermediate Rash Verified 09/30/24 20:17 Penicillins Allergy Intermediate Rash Verified 09/30/24 20:17 prednisone [Prednisone] Allergy Intermediate Rash Verified 09/30/24 20:17 Sulfa (Sulfonamide Allergy Intermediate Rash Verified 09/30/24 20:17 Antibiotics) [Sulfa (Sulfonamides)] ziprasidone [From Geodon] Allergy Intermediate dysuria, Verified 09/30/24 20:17 rash lithium Allergy Unknown Rash Verified 09/30/24 20:17 Review of Systems Review of Systems: Constitutional : No Weight loss, No Fever, No Chills, No Night Sweats, No Fatigue, No Malaise ENT/Mouth : No Hearing loss, No Ear Pain, No Nasal Congestion, No Sinus Pain, No Hoarseness, No sore throat, No Rhinorrhea, No Swallowing Difficulty Eyes: No Eye Pain, No Swelling, No Redness, No Foreign Body, No Discharge, No Vision Changes Cardiovascular : No Chest Pain, No SOB, No Dyspnea on Exertion, No Orthopnea, No Edema, No Palpitations Respiratory : No Cough, No Sputum, No Wheezing, No Smoke Exposure, No Dyspnea Gastrointestinal : No Nausea, No Vomiting, No Diarrhea, No Constipation, No abdominal Pain, No Hematochezia, No Melena Genitourinary : no irregular bleeding, No Dysuria, No Urinary Frequency, No Hematuria, No Urinary Incontinence, No Urgency, No Flank Pain, No Urinary Flow Changes, No Hesitancy Musculoskeletal : No joint pain, No Myalgias, No Joint Swelling Skin : Complaining of superficial scratches Neuro : No Weakness, No Numbness, No Paresthesias, No Loss of Consciousness, No Dizziness, No Headache Psych : denies HI, complaining of HI, feels scared, states she is having both visual and auditory hallucinations Heme/Lymph: No Bruising, No Bleeding,No Lymphadenopathy Endocrine : No Polyuria, No Polydipsia, No Temperature Intolerance [facility] Past Medical History Medical History Asthma Suicidal ideation MDD (major depressive disorder), recurrent episode, severe Chest pain Acute anxiety COVID-19 Full body hives Major depression Dizziness Suicide attempt UTI (urinary tract infection) Acetaminophen overdose COVID History of attempted suicide History of non-suicidal self-harm Hypomagnesemia Suicide attempt Suicide attempt by acetaminophen overdose Acetaminophen overdose Depression Diabetes type 2, controlled Borderline personality disorder PTSD (post-traumatic stress disorder) Overdose GERD (gastroesophageal reflux disease) Mood disorder Hyperlipidemia Bronchitis Social History Social History Household Members: Other Household Members Other:: intermediate Housing: Other Housing Other:: [facility] Do you presently have visiting nurse or other home services: No Unable to assess alcohol history related to: Unknown Alcohol intake: never Comment: sitter in room Patient Tobacco Use Status: Current everyday Tobacco user Tobacco use type: Cigarette Cigarette Packs Per Day: 1 Cigarettes Per Day: 20.0 Years Smoked: 22 e-Cigarette/Vaping Use: Currently Using Second Hand Smoke Exposure: No Substance Use Type: Caffiene Advance Directives: No Advance Directives Information Provided: No Do you have a plan to hurt others: No Plan service: No Current occupational status: unemployed and disabled Sexual orientation: Straight/Heterosexual Physical Exam Vital Signs: Vital Signs: Last Vital Signs Temp 98 F 09/30/24 20:09 Pulse 97 09/30/24 20:09 Resp 19 09/30/24 20:09 BP 157/95 H 09/30/24 20:09 Pulse Ox 98 09/30/24 20:09 O2 Del Method Room Air 09/30/24 20:09 BMI result Body Mass Index 36.7 Const: Other: Appearance: Alert. Oriented X3. No acute distress. Eyes: Pupils equal, round and reactive to light. ENT: Pharynx normal. Neck: Normal inspection. Neck supple. No lymph nodes noted. No crepitus CVS: Normal heart rate and rhythm. Pulses normal. Normal S1 and S2 Respiratory: No respiratory distress. Breath sounds normal. No Wheezing. No rales Abdomen: Soft and nontender. No rigidity. No distention. Skin: patient has multiple superficial lacerations to both upper extremities and abdomen, no need stitches Extremities: No lower extremity edema. No Lacerations. No Rash Neuro: Oriented X 3. No motor deficit. No sensory deficit. Moving all extremities. No slurred speech. CN 2 through 12 grossly intact Psych: calm, cooperative, normal affect Course Course Course Narrative: all of patient's labs and imaging pending care team consult pending physician observation started at 20:33 Medical Decision Making Differential Diagnosis Differential Diagnoses: The differential diagnosis associated with the presentation includes ( anxiety, depression, schizophrenia, bipolar disorder) Admission/Observation Consideration of admission/observation: Escalation of care including admission/observation considered ( patient waiting to be seen by the care team to determine patient's disposition) Discharge Plan Discharge Clinical Impression: Hallucinations, Superficial abrasion Patient Disposition: Still a Patient Prescriptions: No Action fluoxetine 40 mg capsule 40 mg PO DAILY haloperidol 5 mg tablet 5 mg PO BID atorvastatin 10 mg tablet 10 mg PO DAILY clozapine 100 mg tablet 100 mg PO BEDTIME amlodipine 5 mg tablet 5 mg PO DAILY pantoprazole 20 mg tablet,delayed release (DR/EC) 20 mg PO BID lorazepam 0.5 mg tablet 0.5 mg PO Q4H PRN (Reason: Anxiety) buspirone 10 mg tablet 10 mg PO BID benztropine 1 mg tablet 1 mg PO BID montelukast 10 mg tablet 10 mg PO DAILY albuterol sulfate 90 mcg/actuation HFA aerosol inhaler 2 puff inhalation Q6H PRN (Reason: Wheezing) fluphenazine HCl 5 mg tablet 5 mg PO BID prazosin 2 mg capsule 2 mg PO BID mirtazapine 7.5 mg tablet 7.5 mg PO BEDTIME famotidine 20 mg Tablet 20 mg PO TIDWM PRN (Reason: GERD) 30 Days Qty: 90 0RF metformin 500 mg tablet 500 mg PO BID zaleplon 5 mg capsule 5 mg PO BEDTIME miconazole nitrate [Athlete's Foot] 2 % powder 1 appl topical BID Qty: 85 0RF nystatin 100,000 unit/gram powder 1 appl topical BID Qty: 60 0RF Print Language: Beninese
[2024-09-30 20:44] LABS: MANUAL DIFF FLAG NO
[2024-09-30 20:47] LABS: Basophils Percent Auto 0.5 % (0-2); Eosinophils Absolute Auto 0.3 X10*3/uL (0.0-0.4); Eosinophils Percent Auto 3.8 % (0-4); Hematocrit 40.8 % (37.0-47.0); Hemoglobin 13.8 g/dl (12.0-16.0); Imm Gran Abs Auto 0.12 X10*3/uL (0.00-0.03); Imm Gran Pct Auto 1.5 % (0.0-0.4); Lymphocytes Absolute Auto 1.9 X10*3/uL (1.2-4.9); Mean Corpuscular HGB Conc 33.8 g/dl (31.0-35.0); Mean Corpuscular Hemoglobin 30.9 pg (27.0-33.0); Mean Corpuscular Volume 91.3 fL (80.0-98.0); Mean Platelet Volume 8.9 fL (9.4-12.3); Monocytes Absolute Auto 0.7 X10*3/uL (0.1-1.2); Monocytes Percent Auto 8.4 % (2-11); Neutrophils Absolute Auto 4.9 x10*3/uL (2.0-8.3); Neutrophils Percent Auto 61.8 % (45-73); Platelet Count 325 X10*3/uL (160-400); Red Blood Count 4.47 X10*6/uL (4.20-5.50); Red Cell Distribution Width 12.5 % (11.0-16.0); White Blood Count 7.9 X10*3/uL (4.8-10.8)
[2024-09-30 20:54] LABS: Appearance Urine Clear; Color Urine Yellow; Glucose Urine UA Negative (Negative); Leukocyte Esterase Urine Trace (Negative); Nitrite Urine Negative (Negative); UMIC TRIGGER UACC YES; Urine Blood Negative (Negative); Urine Ketones Negative (Negative); Urine Protein Negative (Neg-Trace)
[2024-09-30 20:57] LABS: Bacteria Urine None Seen (None Seen); Hyaline Casts Urine 0-2 /LPF (0-2); RBC Urine 0-2 /HPF (0-2); Squamous Epithelial Cell Urine 0-2 /HPF (0-2); WBC Urine 0-5 /HPF (0-5)
[2024-09-30 21:03] LABS: Amphetamine Screen Urine Not Detected (Not Detect); Barbiturates, Urine Not Detected (Not Detect); Benzodiazepines Screen Urine Not Detected (Not Detect); Buprenorphine Scr Not Detected (Not Detect); Cannabinoid Screen Urine Not Detected (Not Detect); Cocaine Screen Urine Not Detected (Not Detect); Fentanyl, urine Not Detected (Not Detect); Methadone Screen, Urine Not Detected (Not Detect); Opiate Screen Urine Not Detected (Not Detect); Oxycodone Screen Urine Not Detected (Not Detect); Phencyclidine Screen Urine Not Detected (Not Detect)
[2024-09-30 21:06] LABS: Alanine Aminotransferase 34 U/L (0-31); Albumin Level 4.7 g/dL (3.5-5.0); Alkaline Phosphatase 162 U/L (39-117); Anion Gap 12 (12-20); Aspartate Amino Transferase 25 U/L (5-31); Bilirubin Total 0.2 mg/dL (0.0-1.0); Blood Urea Nitrogen 8 mg/dL (9-16); Calcium 9.4 mg/dL (8.4-10.2); Carbon Dioxide 26 mmol/L (22-29); Chloride 106 mmol/L (96-108); Creatinine Clr Calc Pharmacy 114.3; Estimated Glomerular Filt Rate > 60; Ethanol < 10 mg/dL; Glucose Random 112 mg/dL (60-115); Potassium 3.8 mmol/L (3.3-5.1); Sodium 140 mmol/L (135-145); Total Protein 7.9 g/dL (6.5-8.0)
[2024-09-30 21:13] LABS: HCG Quantitative < 2 mIU/mL
[2024-09-30] MEDS: LORazepam 1 MG TABLET 2 MG PO (22:15)
[2024-09-30] MEDS: diphenhydrAMINE HCL 25 MG CAPSULE 50 MG PO (22:18)
--- NOTE | 2024-10-01 | ECG_ITS ---
Test Reason : qt interval Blood Pressure : / mmHG Vent. Rate : 079 BPM Atrial Rate : 079 BPM P-R Int : 150 ms QRS Dur : 084 ms QT Int : 388 ms P-R-T Axes : 028 053 062 degrees QTc Int : 444 ms Normal sinus rhythm Normal ECG When compared with ECG of 14-JUL-2024 22:24, No significant change was found Referred By: Generic ED Physician Electronically Signed By:MAURI COLE
[2024-10-01 00:29] VITALS: BP 125/95; PULSE 91; RESP 18; TEMP 36.7; O2SAT 97
--- NOTE | 2024-10-01 06:15 | PC.NURSE ---
assumed care of patient at this time, pt resting on stretcher appearing calm. Patient observer at bedside
[2024-10-01 06:19] VITALS: BP 117/80; PULSE 99; RESP 16; TEMP 36.6; O2SAT 96
--- NOTE | 2024-10-01 07:40 | PC.NURSE ---
Care of Pt assumed at changed of shift. Pt is currently resting comfortably with eye closed on stretcher. 1:1 sitting present NAD noted at this time. Pt is awaiting Care Team eval.
--- NOTE | 2024-10-01 11:23 | PHA.MEDREC ---
Addendum entered by Rodriguez Huynh 10/01/24 16:45: asked RN to confirm last clozapine dose, pt says she took it sometime yesterday before she came in. Original Note: Pharmacy Consult ? Medication Reconciliation Pharmacy has completed the medication reconciliation, utilized list sent from [facility] and most recent claims to match.
[2024-10-01 15:51] VITALS: BP 118/74; PULSE 79; RESP 14; TEMP 37.2; O2SAT 93
--- NOTE | 2024-10-01 16:12 | PC.NURSE ---
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
[2024-10-01 16:44] VITALS: BP 126/70; PULSE 86; RESP 18; TEMP 37; O2SAT 93
[2024-10-01] MEDS: Omeprazole 20 MG CAPSULE.DR PO (18:25)
[2024-10-01] MEDS: Famotidine 20 MG TABLET 10 MG PO (18:26)
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
[2024-10-01 22:21] VITALS: BP 139/79; PULSE 100; RESP 16; TEMP 36.3; O2SAT 98
--- NOTE | 2024-10-01 22:57 | PC.NURSE ---
Pt refused all meds reporting I just wanna sleep .
[2024-10-02] MEDS: Omeprazole 20 MG CAPSULE.DR PO ×2 (06:22→18:09)
[2024-10-02 07:30] VITALS: BP 137/79; PULSE 71; RESP 14; TEMP 36.6; O2SAT 92
[2024-10-02 08:43] VITALS: BP 137/79
[2024-10-02] MEDS: amLODIPine Besylate 5 MG TABLET PO (08:43)
[2024-10-02] MEDS: Atorvastatin Calcium 10 MG TABLET PO (08:44)
[2024-10-02] MEDS: Ferrous Sulfate 324 MG TABLET.DR PO ×2 (08:44→20:29)
[2024-10-02] MEDS: busPIRone HCl 10 MG TABLET PO ×2 (08:44→20:28)
[2024-10-02] MEDS: Famotidine 20 MG TABLET 10 MG PO ×3 (08:44→17:08)
[2024-10-02] MEDS: fluPHENAZine HCl 5 MG TABLET 15 MG PO ×2 (08:44→20:29)
[2024-10-02] MEDS: Ascorbic Acid 500 MG TABLET PO ×2 (08:44→20:28)
[2024-10-02] MEDS: HaloperidoL 5 MG TABLET PO ×3 (08:44→20:29)
[2024-10-02] MEDS: Benztropine Mesylate 1 MG TABLET PO ×2 (08:44→20:28)
[2024-10-02] MEDS: metFORMIN HCl 500 MG TABLET PO ×2 (08:44→20:30)
[2024-10-02] MEDS: FLUoxetine HCl 20 MG CAPSULE 80 MG PO (08:45)
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
[2024-10-02] MEDS: Fluticasone/Umeclidinium/Vilanterol 200/62.5/25 BLST.W.DEV 1 PUFF INHALE (09:33)
--- NOTE | 2024-10-02 12:09 | MHC.CLN ---
RE: CONSULT HT 67 WT 220# IBW 125#+/-10% PT IS 176% IBW INDICATES OBESE FOR HT ENN: 1624KCALS, 71G PROTEIN DIET RX: 2000DM-APPROPRIATE CONTINUE CURRENT CARE PLAN MONITOR PO INTAKE NO NEW ORDERS
[2024-10-02 19:49] VITALS: BP 148/99; PULSE 83; RESP 18; TEMP 37; O2SAT 97
[2024-10-02] MEDS: cloZAPine 100 MG TABLET PO (20:28)
[2024-10-02] MEDS: Prazosin HCL 1 MG CAPSULE 4 MG PO (20:30)
[2024-10-02] MEDS: Mirtazapine 15 MG TABLET PO (20:30)
[2024-10-02] MEDS: traZODone HCL 50 MG TABLET PO (20:30)
[2024-10-02] MEDS: Montelukast Sodium 10 MG TABLET PO (20:30)
[2024-10-02] MEDS: LORazepam 0.5 MG TABLET PO (20:31)
[2024-10-02] MEDS: Temazepam 15 MG CAPSULE PO (20:31)
[2024-10-03] MEDS: Omeprazole 20 MG CAPSULE.DR PO ×2 (06:38→17:36)
[2024-10-03] MEDS: Famotidine 20 MG TABLET 10 MG PO ×3 (08:57→16:16)
[2024-10-03] MEDS: fluPHENAZine HCl 5 MG TABLET 15 MG PO ×2 (08:58→20:29)
[2024-10-03] MEDS: busPIRone HCl 10 MG TABLET PO ×2 (08:58→20:37)
[2024-10-03] MEDS: FLUoxetine HCl 20 MG CAPSULE 80 MG PO (08:58)
[2024-10-03 08:59] VITALS: BP 126/71
[2024-10-03] MEDS: HaloperidoL 5 MG TABLET PO ×2 (08:59→15:19)
[2024-10-03] MEDS: Atorvastatin Calcium 10 MG TABLET PO (08:59)
[2024-10-03] MEDS: Ascorbic Acid 500 MG TABLET PO (08:59)
[2024-10-03] MEDS: amLODIPine Besylate 5 MG TABLET PO (08:59)
[2024-10-03] MEDS: Benztropine Mesylate 1 MG TABLET PO ×2 (08:59→20:30)
[2024-10-03 09:00] VITALS: BP 126/71; PULSE 84; RESP 16; TEMP 36.6; O2SAT 93
[2024-10-03] MEDS: Ferrous Sulfate 324 MG TABLET.DR PO ×2 (09:00→20:29)
[2024-10-03] MEDS: metFORMIN HCl 500 MG TABLET PO ×2 (09:00→20:30)
[2024-10-03] MEDS: Fluticasone/Umeclidinium/Vilanterol 200/62.5/25 BLST.W.DEV 1 PUFF INHALE (09:03)
--- NOTE | 2024-10-03 09:07 | PC.NURSE ---
Pt refused flu vaccine at this time
--- NOTE | 2024-10-03 15:23 | P.PNPSI_ITS ---
Subjective Subjective Date of Service: 10/03/24 Reason For Visit: SI/SIB Interim History: in bed. rousable but sleepy. denies SIBI today, MRE AH was last night. no requests or complaints. per staff, CAH not to take meds. pt sought out staff instead and asked for haldol PRN. slept 10+ hours. Mental Status Exam Mental Status Exam Narrative: adequately dressed and groomed. no PMA/PMR. cooperative with interview. speech nml loudness, nml rate, amount, latency, prosody. thoughts linear and logical. affect constricted, normo-intense, non-labile. no SI/SIBI. no AH since last night. Diagnostics Vital Signs (24Hr): Vital Signs - 24 hr 10/02/24 19:49 10/03/24 08:59 10/03/24 09:00 Temperature 98.6 F 98 F Pulse Rate 83 84 Respiratory Rate 18 16 Blood Pressure 148/99 H 126/71 126/71 Pulse Oximetry 97 93 Oxygen Delivery Method Room Air Room Air BMI result Body Mass Index 36.7 Labs 09/30/24 20:39 09/30/24 20:39 Medications Medications Current Medications Acetaminophen (Acetaminophen 325 Mg Tablet) 650 mg PO Q6H PRN PRN Reason: Headache/Pain Mild Scale (1-3) Al Hydroxide/Mg Hydroxide (Magnesium Hydrox/Alum Hydrox 30 Ml Oral.Susp) 30 ml PO Q6H PRN PRN Reason: Heartburn/Nausea Albuterol Sulfate (Albuterol Sulfate 90 Mcg 8 Gm Inhaler) 2 puff INHALE Q6H PRN PRN Reason: Wheezing Amlodipine Besylate (Amlodipine Besylate 5 Mg Tablet) 5 mg PO DAILY [facility]; Protocol Last Admin: 10/03/24 08:59 Dose: 5 mg Ascorbic Acid (Ascorbic Acid 500 Mg Tablet) 500 mg PO BID [facility] Last Admin: 10/03/24 08:59 Dose: 500 mg Atorvastatin Calcium (Atorvastatin Calcium 10 Mg Tablet) 10 mg PO DAILY [facility] Last Admin: 10/03/24 08:59 Dose: 10 mg Benztropine Mesylate (Benztropine Mesylate 1 Mg Tablet) 1 mg PO BID [facility] Last Admin: 10/03/24 08:59 Dose: 1 mg Buspirone HCl (Buspirone Hcl 10 Mg Tablet) 10 mg PO BID [facility] Last Admin: 10/03/24 08:58 Dose: 10 mg Clozapine (Clozapine 100 Mg Tablet) 100 mg PO BEDTIME [facility] Last Admin: 10/02/24 20:28 Dose: 100 mg Famotidine (Famotidine 20 Mg Tablet) 10 mg PO TIDWM [facility] Last Admin: 10/03/24 11:38 Dose: 10 mg Ferrous Sulfate (Ferrous Sulfate 324 Mg Tablet.Dr) 324 mg PO BID [facility] Last Admin: 10/03/24 09:00 Dose: 324 mg Fluoxetine HCl (Fluoxetine Hcl 20 Mg Capsule) 80 mg PO DAILY [facility] Last Admin: 10/03/24 08:58 Dose: 80 mg Fluphenazine HCl (Fluphenazine Hcl 5 Mg Tablet) 15 mg PO BID [facility] Last Admin: 10/03/24 08:58 Dose: 15 mg Fluticasone/Umeclidinium/Vilanterol (Fluticasone/Umeclidinium/Vilanterol 200/62.5/25 Blst.W.Dev) 1 puff INHALE DAILY [facility] Last Admin: 10/03/24 09:03 Dose: 1 puff Haloperidol (Haloperidol 5 Mg Tablet) 5 mg PO TID [facility] Last Admin: 10/03/24 08:59 Dose: 5 mg Hydroxyzine HCl (Hydroxyzine Hcl 25 Mg Tablet) 25 mg PO Q6H PRN PRN Reason: Anxiety Lorazepam (Lorazepam 0.5 Mg Tablet) 0.5 mg PO BID PRN PRN Reason: Anxiety Last Admin: 10/02/24 20:31 Dose: 0.5 mg Magnesium Hydroxide (Milk Of Magnesia 30 Ml Oral.Susp) 30 ml PO DAILY PRN PRN Reason: Constipation Metformin HCl (Metformin Hcl 500 Mg Tablet) 500 mg PO BID [facility] Last Admin: 10/03/24 09:00 Dose: 500 mg Miconazole Nitrate (Miconazole Nitrate 2% Powder 85 Gm Bottle) 1 appl TOPICAL BID [facility]; Protocol Last Admin: 10/03/24 09:01 Dose: Not Given Mirtazapine (Mirtazapine 15 Mg Tablet) 15 mg PO BEDTIME [facility] Last Admin: 10/02/24 20:30 Dose: 15 mg Montelukast Sodium (Montelukast Sodium 10 Mg Tablet) 10 mg PO BEDTIME [facility] Last Admin: 10/02/24 20:30 Dose: 10 mg Naproxen (Naproxen 250 Mg Tablet) 250 mg PO BID PRN PRN Reason: Pain (Pain Scale 0-10) Nicotine Polacrilex (Nicotine Polacrilex 2 Mg Gum) 4 mg BUCCAL Q2H PRN PRN Reason: Nicotine Cravings Nystatin (Nystatin Powder 15 Gm Bottle) 1 appl TOPICAL BID [facility]; Protocol Last Admin: 10/03/24 09:01 Dose: Not Given Omeprazole (Omeprazole 20 Mg Capsule.Dr) 20 mg PO BID@0630,1830 [facility] Last Admin: 10/03/24 06:38 Dose: 20 mg Prazosin HCl (Prazosin Hcl 1 Mg Capsule) 4 mg PO BEDTIME [facility]; Protocol Last Admin: 10/02/24 20:30 Dose: 4 mg Temazepam (Temazepam 15 Mg Capsule) 15 mg PO BEDTIME PRN PRN Reason: if awake at 2AM Last Admin: 10/02/24 20:31 Dose: 15 mg Trazodone HCl (Trazodone Hcl 50 Mg Tablet) 50 mg PO BEDTIME MRX1 PRN PRN Reason: Insomnia Last Admin: 10/02/24 20:30 Dose: 50 mg Allergies Allergies Allergy/AdvReac Type Severity Reaction Status Date / Time azithromycin [AZITHROMYCIN] Allergy Severe Rash Verified 09/30/24 20:17 Fish Containing Products Allergy Severe Anaphylaxis Verified 09/30/24 20:17 codeine [Codeine] Allergy Intermediate Rash Verified 09/30/24 20:17 Penicillins Allergy Intermediate Rash Verified 09/30/24 20:17 prednisone [Prednisone] Allergy Intermediate Rash Verified 09/30/24 20:17 Sulfa (Sulfonamide Allergy Intermediate Rash Verified 09/30/24 20:17 Antibiotics) [Sulfa (Sulfonamides)] ziprasidone [From Geodon] Allergy Intermediate dysuria, Verified 09/30/24 20:17 rash lithium Allergy Unknown Rash Verified 09/30/24 20:17 Assessment & Plan Assessment & Plan (1) Superficial abrasion: Status: Acute Code(s): T14.8XXA - Other injury of unspecified body region, initial encounter (2) Depression with suicidal ideation: Status: Acute Code(s): F32.A - Depression, unspecified; R45.851 - Suicidal ideations (3) PTSD (post-traumatic stress disorder): Status: Acute Code(s): F43.10 - Post-traumatic stress disorder, unspecified (4) Borderline personality disorder: Status: Acute Code(s): F60.3 - Borderline personality disorder (5) Diabetes type 2, controlled: Status: Acute Code(s): E11.9 - Type 2 diabetes mellitus without complications Plan 10/02: continue outpt med regimen. keep safe. await improvement. 10/03: remains safe, continue current mgmt. planning for sunday discharge back to [facility]. Reason for continued inpatient stay Substantial Risk for: harm to self Time Spent With Patient Time: Total time managing care of this patient today __25__ minutes.
[2024-10-03] MEDS: LORazepam 0.5 MG TABLET PO ×2 (16:16→20:30)
[2024-10-03 19:50] VITALS: BP 92/63; PULSE 80; RESP 16; TEMP 36.5; O2SAT 96
[2024-10-03] MEDS: Mirtazapine 15 MG TABLET PO (20:30)
[2024-10-03] MEDS: Temazepam 15 MG CAPSULE PO (20:30)
[2024-10-03] MEDS: Prazosin HCL 1 MG CAPSULE 4 MG PO (20:30)
[2024-10-03] MEDS: Montelukast Sodium 10 MG TABLET PO (20:30)
[2024-10-03] MEDS: cloZAPine 100 MG TABLET PO (20:30)
[2024-10-04] MEDS: Omeprazole 20 MG CAPSULE.DR PO ×2 (06:28→17:32)
[2024-10-04 07:35] VITALS: BP 115/68; PULSE 87; RESP 14; TEMP 36.3; O2SAT 91
--- NOTE | 2024-10-04 08:17 | P.PNPSI_ITS ---
Subjective Subjective Date of Service: 10/04/24 Reason For Visit: SI/SIB Subjective Notes: Conditional Voluntary Interim History: Pt slept through the night. She was in bed most of the morning.She reports mood is better. She denies SI/HI, although these are chronic and intermittent. She reports she hopes to be discharged back to on Sunday. No behavioral concerns. Medication Compliance: Yes Side effects from medications: No Review of Systems Review of Systems Constitutional : No Weight loss, No Fever, No Chills, No Night Sweats, No Fatigue, No Malaise ENT/Mouth : No Hearing loss, No Ear Pain, No Nasal Congestion, No Sinus Pain, No Hoarseness, No sore throat, No Rhinorrhea, No Swallowing Difficulty Eyes: No Eye Pain, No Swelling, No Redness, No Foreign Body, No Discharge, No Vision Changes Cardiovascular : No Chest Pain, No SOB, No Dyspnea on Exertion, No Orthopnea, No Edema, No Palpitations Respiratory : No Cough, No Sputum, No Wheezing, No Smoke Exposure, No Dyspnea Gastrointestinal : No Nausea, No Vomiting, No Diarrhea, No Constipation, No abdominal Pain, No Hematochezia, No Melena Genitourinary : no irregular bleeding, No Dysuria, No Urinary Frequency, No Hematuria, No Urinary Incontinence, No Urgency, No Flank Pain, No Urinary Flow Changes, No Hesitancy Musculoskeletal : No joint pain, No Myalgias, No Joint Swelling Skin : Complaining of superficial scratches Neuro : No Weakness, No Numbness, No Paresthesias, No Loss of Consciousness, No Dizziness, No Headache Psych : denies HI, complaining of HI, feels scared, states she is having both visual and auditory hallucinations Heme/Lymph: No Bruising, No Bleeding,No Lymphadenopathy Endocrine : No Polyuria, No Polydipsia, No Temperature Intolerance Mental Status Exam Mental Status Exam Narrative: adequately dressed and groomed. no PMA/PMR. cooperative with interview. speech nml loudness, nml rate, amount, latency, prosody. thoughts linear and logical. affect constricted, normo-intense, non-labile. no SI/SIBI. no AH since last night. Diagnostics Vital Signs (24Hr): Vital Signs - 24 hr 10/03/24 08:59 10/03/24 09:00 10/03/24 19:50 Temperature 98 F 97.7 F Pulse Rate 84 80 Respiratory Rate 16 16 Blood Pressure 126/71 126/71 92/63 Pulse Oximetry 93 96 Oxygen Delivery Method Room Air Room Air 10/04/24 07:35 Temperature 97.3 F Pulse Rate 87 Respiratory Rate 14 Blood Pressure 115/68 Pulse Oximetry 91 L Oxygen Delivery Method Room Air BMI result Body Mass Index 36.7 Labs 09/30/24 20:39 09/30/24 20:39 Medications Medications Current Medications Acetaminophen (Acetaminophen 325 Mg Tablet) 650 mg PO Q6H PRN PRN Reason: Headache/Pain Mild Scale (1-3) Al Hydroxide/Mg Hydroxide (Magnesium Hydrox/Alum Hydrox 30 Ml Oral.Susp) 30 ml PO Q6H PRN PRN Reason: Heartburn/Nausea Albuterol Sulfate (Albuterol Sulfate 90 Mcg 8 Gm Inhaler) 2 puff INHALE Q6H PRN PRN Reason: Wheezing Amlodipine Besylate (Amlodipine Besylate 5 Mg Tablet) 5 mg PO DAILY COUNT [facility]CLUDES THE [facility]; Protocol Last Admin: 10/03/24 08:59 Dose: 5 mg Ascorbic Acid (Ascorbic Acid 500 Mg Tablet) 500 mg PO BID COUNT INCLUDES THE [facility] Last Admin: 10/03/24 20:38 Dose: Not Given Atorvastatin Calcium (Atorvastatin Calcium 10 Mg Tablet) 10 mg PO DAILY COUNT INCLUDES THE [facility] Last Admin: 10/03/24 08:59 Dose: 10 mg Benztropine Mesylate (Benztropine Mesylate 1 Mg Tablet) 1 mg PO BID COUNT INCLUDES [facility] Last Admin: 10/03/24 20:30 Dose: 1 mg Buspirone HCl (Buspirone Hcl 10 Mg Tablet) 10 mg PO BID COUNT INCLUDES [facility] Last Admin: 10/03/24 20:37 Dose: 10 mg Clozapine (Clozapine 100 Mg Tablet) 100 mg PO BEDTIME COUNT INCLUDES THE [facility] Last Admin: 10/03/24 20:30 Dose: 100 mg Famotidine (Famotidine 20 Mg Tablet) 10 mg PO TIDWM COUNT INCLUDES THE [facility] Last Admin: 10/03/24 16:16 Dose: 10 mg Ferrous Sulfate (Ferrous Sulfate 324 Mg Tablet.Dr) 324 mg PO BID COUNT INCLUDES THE [facility] Last Admin: 10/03/24 20:29 Dose: 324 mg Fluoxetine HCl (Fluoxetine Hcl 20 Mg Capsule) 80 mg PO DAILY COUNT INCLUDES [facility] Last Admin: 10/03/24 08:58 Dose: 80 mg Fluphenazine HCl (Fluphenazine Hcl 5 Mg Tablet) 15 mg PO BID COUNT INCLUDES [facility] Last Admin: 10/03/24 20:29 Dose: 15 mg Fluticasone/Umeclidinium/Vilanterol (Fluticasone/Umeclidinium/Vilanterol 200/62.5/25 Blst.W.Dev) 1 puff INHALE DAILY COUNT INCLUDES THE [facility] Last Admin: 10/03/24 09:03 Dose: 1 puff Haloperidol (Haloperidol 5 Mg Tablet) 5 mg PO TID COUNT INCLUDES THE [facility] Last Admin: 10/03/24 20:36 Dose: Not Given Hydroxyzine HCl (Hydroxyzine Hcl 25 Mg Tablet) 25 mg PO Q6H PRN PRN Reason: Anxiety Lorazepam (Lorazepam 0.5 Mg Tablet) 0.5 mg PO BID PRN PRN Reason: Anxiety Last Admin: 10/03/24 20:30 Dose: 0.5 mg Magnesium Hydroxide (Milk Of Magnesia 30 Ml Oral.Susp) 30 ml PO DAILY PRN PRN Reason: Constipation Metformin HCl (Metformin Hcl 500 Mg Tablet) 500 mg PO BID COUNT INCLUDES THE [facility] Last Admin: 10/03/24 20:30 Dose: 500 mg Miconazole Nitrate (Miconazole Nitrate 2% Powder 85 Gm Bottle) 1 appl TOPICAL BID COUNT INCLUDES THE [facility]; Protocol Last Admin: 10/03/24 20:36 Dose: Not Given Mirtazapine (Mirtazapine 15 Mg Tablet) 15 mg PO BEDTIME [facility]ULY Last Admin: 10/03/24 20:30 Dose: 15 mg Montelukast Sodium (Montelukast Sodium 10 Mg Tablet) 10 mg PO BEDTIME [facility] Last Admin: 10/03/24 20:30 Dose: 10 mg Naproxen (Naproxen 250 Mg Tablet) 250 mg PO BID PRN PRN Reason: Pain (Pain Scale 0-10) Nicotine Polacrilex (Nicotine Polacrilex 2 Mg Gum) 4 mg BUCCAL Q2H PRN PRN Reason: Nicotine Cravings Nystatin (Nystatin Powder 15 Gm Bottle) 1 appl TOPICAL BID COUNT INCLUDES THE [facility]; Protocol Last Admin: 10/03/24 20:38 Dose: Not Given Omeprazole (Omeprazole 20 Mg Capsule.Dr) 20 mg PO BID@0630,1830 COUNT INCLUDES THE [facility] Last Admin: 10/04/24 06:28 Dose: 20 mg Prazosin HCl (Prazosin Hcl 1 Mg Capsule) 4 mg PO BEDTIME COUNT INCLUDES THE [facility]; Protocol Last Admin: 10/03/24 20:30 Dose: 4 mg Temazepam (Temazepam 15 Mg Capsule) 15 mg PO BEDTIME PRN PRN Reason: if awake at 2AM Last Admin: 10/03/24 20:30 Dose: 15 mg Trazodone HCl (Trazodone Hcl 50 Mg Tablet) 50 mg PO BEDTIME MRX1 PRN PRN Reason: Insomnia Last Admin: 10/02/24 20:30 Dose: 50 mg Allergies Allergies Allergy/AdvReac Type Severity Reaction Status Date / Time azithromycin [AZITHROMYCIN] Allergy Severe Rash Verified 09/30/24 20:17 Fish Containing Products Allergy Severe Anaphylaxis Verified 09/30/24 20:17 codeine [Codeine] Allergy Intermediate Rash Verified 09/30/24 20:17 Penicillins Allergy Intermediate Rash Verified 09/30/24 20:17 prednisone [Prednisone] Allergy Intermediate Rash Verified 09/30/24 20:17 Sulfa (Sulfonamide Allergy Intermediate Rash Verified 09/30/24 20:17 Antibiotics) [Sulfa (Sulfonamides)] ziprasidone [From Geodon] Allergy Intermediate dysuria, Verified 09/30/24 20:17 rash lithium Allergy Unknown Rash Verified 09/30/24 20:17 Assessment & Plan Assessment & Plan (1) Superficial abrasion: Status: Acute Code(s): T14.8XXA - Other injury of unspecified body region, initial encounter (2) Depression with suicidal ideation: Status: Acute Code(s): F32.A - Depression, unspecified; R45.851 - Suicidal ideations (3) PTSD (post-traumatic stress disorder): Status: Acute Code(s): F43.10 - Post-traumatic stress disorder, unspecified (4) Borderline personality disorder: Status: Acute Code(s): F60.3 - Borderline personality disorder (5) Diabetes type 2, controlled: Status: Acute Code(s): E11.9 - Type 2 diabetes mellitus without complications Plan 10/02: continue outpt med regimen. keep safe. await improvement. 10/03: remains safe, continue current mgmt. planning for sunday discharge back to halfway. 10/04 continue tx. Reason for continued inpatient stay Substantial Risk for: inability to function Time Spent With Patient Time: Total time managing care of this patient today ____ minutes.
[2024-10-04] MEDS: Fluticasone/Umeclidinium/Vilanterol 200/62.5/25 BLST.W.DEV 1 PUFF INHALE (11:14)
[2024-10-04] MEDS: metFORMIN HCl 500 MG TABLET PO ×2 (11:15→20:14)
[2024-10-04] MEDS: FLUoxetine HCl 20 MG CAPSULE 80 MG PO (11:15)
[2024-10-04] MEDS: fluPHENAZine HCl 5 MG TABLET 15 MG PO ×2 (11:16→20:13)
[2024-10-04] MEDS: Famotidine 20 MG TABLET 10 MG PO ×2 (11:17→16:26)
[2024-10-04] MEDS: busPIRone HCl 10 MG TABLET PO ×2 (11:17→20:12)
[2024-10-04] MEDS: Atorvastatin Calcium 10 MG TABLET PO (11:17)
[2024-10-04 11:18] VITALS: BP 115/68
[2024-10-04] MEDS: Ferrous Sulfate 324 MG TABLET.DR PO ×2 (11:18→20:13)
[2024-10-04] MEDS: Benztropine Mesylate 1 MG TABLET PO ×2 (11:18→20:12)
[2024-10-04] MEDS: amLODIPine Besylate 5 MG TABLET PO (11:18)
[2024-10-04] MEDS: Ascorbic Acid 500 MG TABLET PO (11:19)
[2024-10-04] MEDS: HaloperidoL 5 MG TABLET PO ×3 (16:24→20:13)
[2024-10-04] MEDS: LORazepam 0.5 MG TABLET PO ×2 (17:32→20:14)
[2024-10-04 19:40] VITALS: BP 165/88; PULSE 90; RESP 16; TEMP 36.9; O2SAT 97
[2024-10-04] MEDS: cloZAPine 100 MG TABLET PO (20:12)
[2024-10-04] MEDS: Temazepam 15 MG CAPSULE PO (20:14)
[2024-10-04] MEDS: Prazosin HCL 1 MG CAPSULE 4 MG PO (20:14)
[2024-10-04] MEDS: Montelukast Sodium 10 MG TABLET PO (20:14)
[2024-10-04] MEDS: Mirtazapine 15 MG TABLET PO (20:14)
[2024-10-04] MEDS: traZODone HCL 50 MG TABLET PO (20:15)
[2024-10-05] MEDS: Omeprazole 20 MG CAPSULE.DR PO ×2 (06:05→18:18)
[2024-10-05 08:00] VITALS: BP 142/66; PULSE 86; RESP 14; TEMP 36.2; O2SAT 93
[2024-10-05] MEDS: metFORMIN HCl 500 MG TABLET PO ×2 (10:03→20:47)
[2024-10-05] MEDS: Ferrous Sulfate 324 MG TABLET.DR PO ×2 (10:03→20:47)
[2024-10-05] MEDS: HaloperidoL 5 MG TABLET PO ×3 (10:03→20:47)
[2024-10-05] MEDS: Fluticasone/Umeclidinium/Vilanterol 200/62.5/25 BLST.W.DEV 1 PUFF INHALE (10:03)
[2024-10-05 10:04] VITALS: BP 142/66
[2024-10-05] MEDS: amLODIPine Besylate 5 MG TABLET PO (10:04)
[2024-10-05] MEDS: Famotidine 20 MG TABLET 10 MG PO ×2 (10:04→16:15)
[2024-10-05] MEDS: Ascorbic Acid 500 MG TABLET PO ×2 (10:05→20:47)
[2024-10-05] MEDS: fluPHENAZine HCl 5 MG TABLET 15 MG PO ×2 (10:05→20:48)
[2024-10-05] MEDS: Benztropine Mesylate 1 MG TABLET PO ×2 (10:06→20:48)
[2024-10-05] MEDS: FLUoxetine HCl 20 MG CAPSULE 80 MG PO (10:06)
[2024-10-05] MEDS: Atorvastatin Calcium 10 MG TABLET PO (10:06)
[2024-10-05] MEDS: busPIRone HCl 10 MG TABLET PO ×2 (10:06→20:47)
--- NOTE | 2024-10-05 10:43 | P.PNPSI_ITS ---
Subjective Subjective Date of Service: 10/05/24 Reason For Visit: SI/SIB Interim History: Pt slept through the night. She was in bed most of the morning.She reports mood is better. She denies SI/HI, although these are chronic and intermittent. She reports she hopes to be discharged back to on Sunday. No behavioral concerns. Review of Systems Review of Systems Constitutional : No Weight loss, No Fever, No Chills, No Night Sweats, No Fatigue, No Malaise ENT/Mouth : No Hearing loss, No Ear Pain, No Nasal Congestion, No Sinus Pain, No Hoarseness, No sore throat, No Rhinorrhea, No Swallowing Difficulty Eyes: No Eye Pain, No Swelling, No Redness, No Foreign Body, No Discharge, No Vision Changes Cardiovascular : No Chest Pain, No SOB, No Dyspnea on Exertion, No Orthopnea, No Edema, No Palpitations Respiratory : No Cough, No Sputum, No Wheezing, No Smoke Exposure, No Dyspnea Gastrointestinal : No Nausea, No Vomiting, No Diarrhea, No Constipation, No abdominal Pain, No Hematochezia, No Melena Genitourinary : no irregular bleeding, No Dysuria, No Urinary Frequency, No Hematuria, No Urinary Incontinence, No Urgency, No Flank Pain, No Urinary Flow Changes, No Hesitancy Musculoskeletal : No joint pain, No Myalgias, No Joint Swelling Skin : Complaining of superficial scratches Neuro : No Weakness, No Numbness, No Paresthesias, No Loss of Consciousness, No Dizziness, No Headache Psych : denies HI, complaining of HI, feels scared, states she is having both visual and auditory hallucinations Heme/Lymph: No Bruising, No Bleeding,No Lymphadenopathy Endocrine : No Polyuria, No Polydipsia, No Temperature Intolerance Mental Status Exam Mental Status Exam Narrative: adequately dressed and groomed. no PMA/PMR. cooperative with interview. speech nml loudness, nml rate, amount, latency, prosody. thoughts linear and logical. affect constricted, normo-intense, non-labile. no SI/SIBI. no AH since last night. Diagnostics Vital Signs (24Hr): Vital Signs - 24 hr 10/04/24 11:18 10/04/24 19:40 10/05/24 08:00 Temperature 98.5 F 97.1 F Pulse Rate 90 86 Respiratory Rate 16 14 Blood Pressure 115/68 165/88 H 142/66 H Pulse Oximetry 97 93 Oxygen Delivery Method Room Air Room Air 10/05/24 10:04 Temperature Pulse Rate Respiratory Rate Blood Pressure 142/66 H Pulse Oximetry Oxygen Delivery Method BMI result Body Mass Index 36.7 Labs 09/30/24 20:39 09/30/24 20:39 Medications Medications Current Medications Acetaminophen (Acetaminophen 325 Mg Tablet) 650 mg PO Q6H PRN PRN Reason: Headache/Pain Mild Scale (1-3) Al Hydroxide/Mg Hydroxide (Magnesium Hydrox/Alum Hydrox 30 Ml Oral.Susp) 30 ml PO Q6H PRN PRN Reason: Heartburn/Nausea Albuterol Sulfate (Albuterol Sulfate 90 Mcg 8 Gm Inhaler) 2 puff INHALE Q6H PRN PRN Reason: Wheezing Amlodipine Besylate (Amlodipine Besylate 5 Mg Tablet) 5 mg PO DAILY [facility]; Protocol Last Admin: 10/05/24 10:04 Dose: 5 mg Ascorbic Acid (Ascorbic Acid 500 Mg Tablet) 500 mg PO BID [facility] Last Admin: 10/05/24 10:05 Dose: 500 mg Atorvastatin Calcium (Atorvastatin Calcium 10 Mg Tablet) 10 mg PO DAILY [facility] Last Admin: 10/05/24 10:06 Dose: 10 mg Benztropine Mesylate (Benztropine Mesylate 1 Mg Tablet) 1 mg PO BID [facility] Last Admin: 10/05/24 10:06 Dose: 1 mg Buspirone HCl (Buspirone Hcl 10 Mg Tablet) 10 mg PO BID [facility] Last Admin: 10/05/24 10:06 Dose: 10 mg Clozapine (Clozapine 100 Mg Tablet) 100 mg PO BEDTIME [facility] Last Admin: 10/04/24 20:12 Dose: 100 mg Famotidine (Famotidine 20 Mg Tablet) 10 mg PO TIDWM [facility] Last Admin: 10/05/24 10:04 Dose: 10 mg Ferrous Sulfate (Ferrous Sulfate 324 Mg Tablet.Dr) 324 mg PO BID [facility] Last Admin: 10/05/24 10:03 Dose: 324 mg Fluoxetine HCl (Fluoxetine Hcl 20 Mg Capsule) 80 mg PO DAILY [facility] Last Admin: 10/05/24 10:06 Dose: 80 mg Fluphenazine HCl (Fluphenazine Hcl 5 Mg Tablet) 15 mg PO BID [facility] Last Admin: 10/05/24 10:05 Dose: 15 mg Fluticasone/Umeclidinium/Vilanterol (Fluticasone/Umeclidinium/Vilanterol 200/62.5/25 Blst.W.Dev) 1 puff INHALE DAILY [facility] Last Admin: 10/05/24 10:03 Dose: 1 puff Haloperidol (Haloperidol 5 Mg Tablet) 5 mg PO TID [facility] Last Admin: 10/05/24 10:03 Dose: 5 mg Hydroxyzine HCl (Hydroxyzine Hcl 25 Mg Tablet) 25 mg PO Q6H PRN PRN Reason: Anxiety Lorazepam (Lorazepam 0.5 Mg Tablet) 0.5 mg PO BID PRN PRN Reason: Anxiety Last Admin: 10/04/24 20:14 Dose: 0.5 mg Magnesium Hydroxide (Milk Of Magnesia 30 Ml Oral.Susp) 30 ml PO DAILY PRN PRN Reason: Constipation Metformin HCl (Metformin Hcl 500 Mg Tablet) 500 mg PO BID [facility] Last Admin: 10/05/24 10:03 Dose: 500 mg Miconazole Nitrate (Miconazole Nitrate 2% Powder 85 Gm Bottle) 1 appl TOPICAL BID [facility]; Protocol Last Admin: 10/05/24 10:13 Dose: Not Given Mirtazapine (Mirtazapine 15 Mg Tablet) 15 mg PO BEDTIME [facility] Last Admin: 10/04/24 20:14 Dose: 15 mg Montelukast Sodium (Montelukast Sodium 10 Mg Tablet) 10 mg PO BEDTIME [facility] Last Admin: 10/04/24 20:14 Dose: 10 mg Naproxen (Naproxen 250 Mg Tablet) 250 mg PO BID PRN PRN Reason: Pain (Pain Scale 0-10) Nicotine Polacrilex (Nicotine Polacrilex 2 Mg Gum) 4 mg BUCCAL Q2H PRN PRN Reason: Nicotine Cravings Nystatin (Nystatin Powder 15 Gm Bottle) 1 appl TOPICAL BID [facility]; Protocol Last Admin: 10/05/24 10:13 Dose: Not Given Omeprazole (Omeprazole 20 Mg Capsule.Dr) 20 mg PO BID@0630,1830 [facility] Last Admin: 10/05/24 06:05 Dose: 20 mg Prazosin HCl (Prazosin Hcl 1 Mg Capsule) 4 mg PO BEDTIME [facility]; Protocol Last Admin: 10/04/24 20:14 Dose: 4 mg Temazepam (Temazepam 15 Mg Capsule) 15 mg PO BEDTIME PRN PRN Reason: if awake at 2AM Last Admin: 10/04/24 20:14 Dose: 15 mg Trazodone HCl (Trazodone Hcl 50 Mg Tablet) 50 mg PO BEDTIME MRX1 PRN PRN Reason: Insomnia Last Admin: 10/04/24 20:15 Dose: 50 mg Allergies Allergies Allergy/AdvReac Type Severity Reaction Status Date / Time azithromycin [AZITHROMYCIN] Allergy Severe Rash Verified 09/30/24 20:17 Fish Containing Products Allergy Severe Anaphylaxis Verified 09/30/24 20:17 codeine [Codeine] Allergy Intermediate Rash Verified 09/30/24 20:17 Penicillins Allergy Intermediate Rash Verified 09/30/24 20:17 prednisone [Prednisone] Allergy Intermediate Rash Verified 09/30/24 20:17 Sulfa (Sulfonamide Allergy Intermediate Rash Verified 09/30/24 20:17 Antibiotics) [Sulfa (Sulfonamides)] ziprasidone [From Geodon] Allergy Intermediate dysuria, Verified 09/30/24 20:17 rash lithium Allergy Unknown Rash Verified 09/30/24 20:17 Assessment & Plan Assessment & Plan (1) Borderline personality disorder: Status: Acute Code(s): F60.3 - Borderline personality disorder (2) Superficial abrasion: Status: Acute Code(s): T14.8XXA - Other injury of unspecified body region, initial encounter (3) Depression with suicidal ideation: Status: Acute Code(s): F32.A - Depression, unspecified; R45.851 - Suicidal ideations (4) PTSD (post-traumatic stress disorder): Status: Acute Code(s): F43.10 - Post-traumatic stress disorder, unspecified (5) Diabetes type 2, controlled: Status: Acute Code(s): E11.9 - Type 2 diabetes mellitus without complications Plan 10/02: continue outpt med regimen. keep safe. await improvement. 10/03: remains safe, continue current mgmt. planning for sunday discharge back to skilled nursing. 10/04 continue tx. 10/05 continue tx. Reason for continued inpatient stay Substantial Risk for: harm to self Time Spent With Patient Time: Total time managing care of this patient today ____ minutes.
[2024-10-05] MEDS: LORazepam 0.5 MG TABLET PO (16:16)
[2024-10-05 20:00] VITALS: BP 145/98; PULSE 95; RESP 16; TEMP 36.9; O2SAT 96
[2024-10-05] MEDS: Mirtazapine 15 MG TABLET PO (20:47)
[2024-10-05] MEDS: Montelukast Sodium 10 MG TABLET PO (20:47)
[2024-10-05 20:48] VITALS: BP 135/90
[2024-10-05] MEDS: Prazosin HCL 1 MG CAPSULE 4 MG PO (20:48)
[2024-10-05] MEDS: cloZAPine 100 MG TABLET PO (20:48)
[2024-10-05] MEDS: Albuterol Sulfate 90 MCG 8 GM INHALER 2 PUFF INHALE (21:05)
[2024-10-06] MEDS: traZODone HCL 50 MG TABLET PO (00:24)
[2024-10-06] MEDS: Temazepam 15 MG CAPSULE PO (01:49)
[2024-10-06] MEDS: Milk of Magnesia 30 ML ORAL.SUSP PO (02:29)
[2024-10-06] MEDS: Albuterol Sulfate 90 MCG 8 GM INHALER 2 PUFF INHALE (03:25)
[2024-10-06] MEDS: Omeprazole 20 MG CAPSULE.DR PO (06:22)
[2024-10-06 07:45] VITALS: BP 177/106; PULSE 99; RESP 14; TEMP 36.2; O2SAT 97
[2024-10-06] MEDS: Fluticasone/Umeclidinium/Vilanterol 200/62.5/25 BLST.W.DEV 1 PUFF INHALE (08:26)
[2024-10-06] MEDS: fluPHENAZine HCl 5 MG TABLET 15 MG PO (08:28)
[2024-10-06] MEDS: Atorvastatin Calcium 10 MG TABLET PO (08:28)
[2024-10-06] MEDS: FLUoxetine HCl 20 MG CAPSULE 80 MG PO (08:28)
[2024-10-06] MEDS: HaloperidoL 5 MG TABLET PO (08:29)
[2024-10-06] MEDS: busPIRone HCl 10 MG TABLET PO (08:29)
[2024-10-06] MEDS: Famotidine 20 MG TABLET 10 MG PO (08:29)
[2024-10-06] MEDS: Ascorbic Acid 500 MG TABLET PO (08:29)
[2024-10-06] MEDS: Benztropine Mesylate 1 MG TABLET PO (08:29)
[2024-10-06] MEDS: Ferrous Sulfate 324 MG TABLET.DR PO (08:29)
[2024-10-06] MEDS: metFORMIN HCl 500 MG TABLET PO (08:29)
[2024-10-06] MEDS: amLODIPine Besylate 5 MG TABLET PO (08:53)
[2024-10-06] MEDS: LORazepam 0.5 MG TABLET PO (10:05)
--- NOTE | 2024-10-06 10:22 | P.DS_ITS ---
DS: Providers Provider Date of Service: 10/06/24 Date of admission: 10/01/24 16:22 Date of discharge: 10/06/24 Primary care physician: Rose Physician Attending physician on admission: Robby Bazan Attending physician on discharge: Sourav Lucas Discharging clinician: Iman Mendoza DS: Diagnosis Discharge Diagnosis (1) Borderline personality disorder: Status: Acute (2) Superficial abrasion: Status: Acute (3) Depression with suicidal ideation: Status: Acute (4) PTSD (post-traumatic stress disorder): Status: Acute (5) Diabetes type 2, controlled: Status: Acute DS: Medications Discharge Medications Home Medications: Home Medications ?Medication ?Instructions ?Recorded ?Confirmed albuterol sulfate 90 mcg/actuation 2 puff inhalation Q6H PRN Wheezing 06/24/24 10/01/24 aerosol inhaler amlodipine 5 mg tablet 5 mg PO DAILY 06/24/24 10/01/24 atorvastatin 10 mg tablet 10 mg PO DAILY 06/24/24 10/01/24 benztropine 1 mg tablet 1 mg PO BID 06/24/24 10/01/24 buspirone 10 mg tablet 10 mg PO BID 06/24/24 10/01/24 clozapine 100 mg tablet 100 mg PO BEDTIME 06/24/24 10/01/24 fluoxetine 40 mg capsule 80 mg PO DAILY 06/24/24 10/01/24 fluphenazine HCl 5 mg tablet 15 mg PO BID 06/24/24 10/01/24 haloperidol 5 mg tablet 5 mg PO TID 06/24/24 10/01/24 lorazepam 0.5 mg tablet 0.5 mg PO BID PRN Anxiety 06/24/24 10/01/24 montelukast 10 mg tablet 10 mg PO BEDTIME 06/24/24 10/01/24 pantoprazole 20 mg tablet,delayed 40 mg PO BID 06/24/24 10/01/24 release prazosin 2 mg capsule 4 mg PO BEDTIME 06/24/24 10/01/24 metformin 500 mg tablet 500 mg PO BID 07/15/24 10/01/24 ascorbic acid (vitamin C) 500 mg 500 mg PO BID 10/01/24 10/01/24 tablet (Vitamin C) famotidine 20 mg tablet 10 mg PO TIDWM 10/01/24 10/01/24 ferrous sulfate 325 mg (65 mg 325 mg PO BID 10/01/24 10/01/24 iron) tablet fluticasone fur. 200 mcg-umeclid 1 ea inhalation DAILY 10/01/24 10/01/24 62.5 mcg-vilant 25 mcg inhalat.powder (Trelegy Ellipta) mirtazapine 15 mg tablet 15 mg PO BEDTIME 10/01/24 10/01/24 naproxen 250 mg tablet 250 mg PO BID PRN Pain 10/01/24 10/01/24 Previous Rx's ?Medication ?Instructions ?Recorded miconazole nitrate 2 % topical 1 appl topical BID #85 grams 07/22/24 powder (Athlete's Foot) nystatin 100,000 unit/gram topical 1 appl topical BID #60 grams 09/25/24 powder temazepam 15 mg capsule 15 mg PO BEDTIME PRN if awake at 10/06/24 2AM 30 days #30 caps Mental Status Exam Mental Status Exam Narrative: Pt is alert and oriented; behavior is cooperative, friendly and calm; dressed in casual attire; mood is described as good ; eye contact appropriate; Speech is normal rate, volume and not pressured; thought process is organized; Thought content is on discharge; denies SI/HI/VH/AH. Data Data Completed and Pending Completed studies during hospitalization [Text1]: 09/30/24 09/30/24 20:39 20:43 WBC 7.9 RBC 4.47 Hgb 13.8 Hct 40.8 MCV 91.3 MCH 30.9 MCHC 33.8 RDW 12.5 Plt Count 325 MPV 8.9 L Immature Gran % (Auto) 1.5 H Neut % (Auto) 61.8 Lymph % (Auto) 24.0 [place] % (Auto) 8.4 Eos % (Auto) 3.8 Baso % (Auto) 0.5 Lymph # (Auto) 1.9 [place] # (Auto) 0.7 Eos # (Auto) 0.3 Baso # (Auto) 0.0 Abs Immat Gran (auto) 0.12 H Absolute Neuts (auto) 4.9 Absolute Nucleated RBC 0.000 Nucleated RBC % (auto) 0.0 Sodium 140 Potassium 3.8 Chloride 106 Carbon Dioxide 26 Anion Gap 12 BUN 8 L Creatinine 0.72 Estim Creat Clear Calc 114.3 Estimated GFR > 60 Random Glucose 112 Calcium 9.4 Total Bilirubin 0.2 AST 25 ALT 34 H Alkaline Phosphatase 162 H Total Protein 7.9 Albumin 4.7 Beta HCG, Quant < 2 Urine Color Yellow Urine Appearance Clear Urine pH 7.0 Ur Specific [place] 1.010 Urine Protein Negative Urine Glucose (UA) Negative Urine Ketones Negative Urine Blood Negative Urine Nitrite Negative Ur Leukocyte Esterase Trace H Urine RBC 0-2 Urine WBC 0-5 Ur Squamous Epith Cells 0-2 Urine Bacteria None Seen Hyaline Casts 0-2 Urine Opiates Screen Not Detected Ur Buprenorphine Scrn Not Detected Ur Oxycodone Screen Not Detected Urine Methadone Screen Not Detected Urine Fentanyl Screen Not Detected Ur Barbiturates Screen Not Detected Ur Phencyclidine Scrn Not Detected Ur Amphetamines Screen Not Detected U Benzodiazepines Scrn Not Detected Urine Cocaine Screen Not Detected U Marijuana (THC) Screen Not Detected Ethyl Alcohol < 10 DS: Summary Hospital Course Hospital Course: pt [place] [facility] [place] and was evaluated by CARE team. she c/o SI with plan to overdose on tylenol as well as AVH. she reported CAH to harm self, stated she was having a hard time. she reported scratching self, slight redness with skin intact noted in the area. at the time of eval, she denied SI/SIBI and that AVH were manageable. she stated she did not want to be in hospital for Xmas and asked to be DCed back to half-way. reports having been inpt at [facility] 2 weeks ago and having medication reductions which have left her more clear headed. pt was discharged back to her half-way as per her expressed wishes. pt returned [place] [facility] [place] same [place]30 after having been discharged in the afternoon, c/o Sx exacerbation of increased AH with SI with plan to overdose. she also presented with superficial lacerations to her forearms and abdomen, not requiring further medical intervention. pt requested psych admission and was referred to [facility]. on interview with MD, pt is calm and cooperative. states she is tired and has been sleeping all day and so can't really say much about SI or AVH. she does say the last time she recalls experiencing either of those things was last night. she doesn't know what we might do for her, but agrees to plan to continue her outpt medications and monitor her for safety. she is able to laugh and appreciate humor, and yawns nearly continuously throughout the evaluation. no requests or complaints. continue outpt med regimen. keep safe. await improvement. remains safe, continue current mgmt. planning for sunday discharge back to half-way. Patient reports feeling good and ready to go back today; denies SI/HI/VH/AH. Joking and laughing with staff. Patient reports she plans on following up with her outpatient providers. Time spent discussing smoking cessation with patient: 3 to 10 minutes Status at Discharge Cognitive/behavioral status at discharge: Patient has insight and demonstrates good judgment in terms of wanting to pursue treatment. Patient has a safety plan that includes presenting to the closest ER or calling 911 if feeling unsafe. Functional status at discharge: independent ambulation Overall status at discharge: patient is back to baseline Time Spent with Patient Time attestation: Total time managing care of this patient today _20___ minutes. Time spent: Less than 30 minutes Discharge Plan Discharge Anticipated Discharge Date/Time: 10/06/24 11:00 Patient Disposition: Home, Self-Care Discharge Diagnosis: MDD, PTSD, Borderline personality d/o Referrals: Melany Ortiz (Therapy) [Other] - 10/22/24 2:05 pm (IN OFFICE APPOINTMENT) Dr. Dylan Gaspar (Psychiatry) [Other] - 11/04/24 12:40 pm (IN OFFICE APPOINTMENT) Maribel Marquez NP [Nurse Practitioner] - 1 Week (Your Primary care provider will be reaching out to you to schedule your follow up appt.) Discharge Medications: New temazepam 15 mg Capsule 15 mg PO BEDTIME PRN (Reason: if awake at 2AM) 30 Days Qty: 30 0RF lactulose 20 gram/30 mL solution 20 g PO DAILY PRN (Reason: constipation) 30 Days Qty: 900 0RF Continued ascorbic acid (vitamin C) [Vitamin C] 500 mg Tablet 500 mg PO BID ferrous sulfate 325 mg (65 mg iron) Tablet 325 mg PO BID mirtazapine 15 mg tablet 15 mg PO BEDTIME Trelegy Ellipta 200-62.5-25 mcg blister with device 1 ea inhalation DAILY naproxen 250 mg Tablet 250 mg PO BID PRN (Reason: Pain) famotidine 20 mg tablet 10 mg PO TIDWM fluoxetine 40 mg capsule 80 mg PO DAILY haloperidol 5 mg tablet 5 mg PO TID atorvastatin 10 mg tablet 10 mg PO DAILY clozapine 100 mg tablet 100 mg PO BEDTIME amlodipine 5 mg tablet 5 mg PO DAILY pantoprazole 20 mg tablet,delayed release (DR/EC) 40 mg PO BID lorazepam 0.5 mg tablet 0.5 mg PO BID PRN (Reason: Anxiety) buspirone 10 mg tablet 10 mg PO BID benztropine 1 mg tablet 1 mg PO BID montelukast 10 mg tablet 10 mg PO BEDTIME albuterol sulfate 90 mcg/actuation HFA aerosol inhaler 2 puff inhalation Q6H PRN (Reason: Wheezing) fluphenazine HCl 5 mg tablet 15 mg PO BID prazosin 2 mg capsule 4 mg PO BEDTIME metformin 500 mg tablet 500 mg PO BID miconazole nitrate [Athlete's Foot] 2 % powder 1 appl topical BID Qty: 85 0RF nystatin 100,000 unit/gram powder 1 appl topical BID Qty: 60 0RF Discontinued zaleplon 5 mg capsule 5 mg PO BEDTIME PRN (Reason: if awake at 2AM) Discharge Orders: Discharge Order (Routine); Ordered 10/06/24 Ordered By: Iman Mendoza Diet: Regular diet Activity on Discharge: As tolerated Stand Alone Forms: Patient Portal Discharge page, Community Support Print Language: Latvian Care Plan Goals: Maintain mood and safe behaviors Take medications as prescribed Practice coping skills Continue with outpatient providers and reach out to them as needed Health Concerns: Mood stability and behaviors Plan of Treatment: Follow up with your PCP, psychiatric provider and other outpatient providers regarding above concerns Take medications as prescribed Assessment: Patient has insight and demonstrates good judgment in terms of wanting to pursue treatment. Patient has a safety plan that includes presenting to the closest ER or calling 911 if feeling unsafe. Discharge Date/Time: 10/06/24 11:20
== END 2024-10-06 11:20 | disposition home or self-care (01) | DRG 883 ==
LOC: HO.ED 10-01 16:07 → HO.PADLT16 10-01 16:54
PROVIDERS: Admitting Provider Psychiatry & Neurology Psychiatry; Emergency Provider Emergency Medicine; Visit Provider Psychiatry & Neurology Psychiatry
DX: F60.3 Borderline personality disorder (principal); R45.851 Suicidal ideations; F32.9 Major depressive disorder, single episode, unspecified; F43.10 Post-traumatic stress disorder, unspecified; E11.9 Type 2 diabetes mellitus without complications; Z79.84 Long term (current) use of oral hypoglycemic drugs; Z79.899 Other long term (current) drug therapy
CPT/HCPCS: 36415; 80053; 80307; 81001; 84702; 85025; 93005; 99284; 99285; S9485

== ENCOUNTER → 2024-10-01 09:37 | Outpatient (BNV) | payer MEDICARE, MEDICAID, SELFPAY | PROVIDERS: Admitting Provider Psychiatry & Neurology Psychiatry; Emergency Provider Emergency Medicine; Visit Provider Internal Medicine | DX: I45.81 Long QT syndrome (principal) | CPT/HCPCS: 93010 ==

== ENCOUNTER → 2024-10-01 16:22 | Outpatient (BNV) | payer MEDICARE, MEDICAID, SELFPAY | PROVIDERS: Admitting Provider Psychiatry & Neurology Psychiatry; Emergency Provider Emergency Medicine; Visit Provider Psychiatry & Neurology Psychiatry | DX: F60.3 Borderline personality disorder (principal); F32.3 Major depressive disorder, single episode, severe with psychotic features; R45.851 Suicidal ideations; F43.11 Post-traumatic stress disorder, acute; T14.8XXA Other injury of unspecified body region, initial encounter | CPT/HCPCS: 90792; 99231; 99232; 99238 ==

== ENCOUNTER 2024-10-06 11:25 | Outpatient (REF) | payer MEDICARE, MEDICAID, SELFPAY ==
[2024-10-06 11:34] LABS: MANUAL DIFF FLAG NO
[2024-10-06 12:21] LABS: Basophils Percent Auto 0.4 % (0-2); Eosinophils Absolute Auto 0.2 X10*3/uL (0.0-0.4); Eosinophils Percent Auto 1.9 % (0-4); Hematocrit 40.5 % (37.0-47.0); Hemoglobin 13.7 g/dl (12.0-16.0); Imm Gran Abs Auto 0.05 X10*3/uL (0.00-0.03); Imm Gran Pct Auto 0.5 % (0.0-0.4); Lymphocytes Absolute Auto 1.4 X10*3/uL (1.2-4.9); Lymphocytes Percent Auto 12.8 % (20-40); Mean Corpuscular HGB Conc 33.8 g/dl (31.0-35.0); Mean Corpuscular Hemoglobin 30.9 pg (27.0-33.0); Mean Corpuscular Volume 91.2 fL (80.0-98.0); Mean Platelet Volume 9.7 fL (9.4-12.3); Monocytes Absolute Auto 0.9 X10*3/uL (0.1-1.2); Monocytes Percent Auto 8.1 % (2-11); Neutrophils Absolute Auto 8.2 x10*3/uL (2.0-8.3); Neutrophils Percent Auto 76.3 % (45-73); Platelet Count 317 X10*3/uL (160-400); Red Blood Count 4.44 X10*6/uL (4.20-5.50); Red Cell Distribution Width 12.2 % (11.0-16.0); White Blood Count 10.8 X10*3/uL (4.8-10.8)
== END 2024-10-06 11:26 | disposition home or self-care (01) ==
LOC: HO.LABR 11:25
PROVIDERS: Visit Provider Psychiatry & Neurology Psychiatry
DX: Z79.899 Other long term (current) drug therapy (principal)
CPT/HCPCS: 36415; 85025

== ENCOUNTER 2024-10-07 13:49 | Emergency (ER) | payer MEDICARE, MEDICAID, SELFPAY ==
[2024-10-07 14:01] VITALS: BP 140/80; BP 141/109; PULSE 118; PULSE 126; RESP 18; TEMP 36.6; O2SAT 97; O2SAT 98; BMI 39.7
--- NOTE | 2024-10-07 14:02 | ED_ITS ---
HPI - Abdominal Pain General Chief Complaint: Nausea/Vomiting/Diarrhea Stated Complaint: ABD PAIN,VOMITING,POOR APPETITE PER EMS Time Seen by Provider: 10/07/24 14:02 Source: patient and EMS Mode of arrival: EMS Limitations: no limitations History of Present Illness ED Provider: Henrietta Woody NP HPI narrative: Patient is a 48-year-old female who presents emergency department via EMS for evaluation of abdominal pain. Reports onset yesterday diffuse abdominal pain primarily worse on the right with associated dysuria but no hematuria/urgency/hesitancy. Reports that she vomited once yesterday and twice today. States that the emesis includes bile and food denies any blood. She reports feeling constipated over the past 3 days. Denies any known sick contacts. Denies fevers, chills, chest pain, diarrhea, hematochezia, melena. denies pelvic pain or abnormal vaginal discharge. Denies concern for sexually transmitted infection. Related Data Home Medications ?Medication ?Instructions ?Recorded ?Confirmed albuterol sulfate 90 mcg/actuation 2 puff inhalation Q6H PRN Wheezing 06/24/24 10/01/24 aerosol inhaler amlodipine 5 mg tablet 5 mg PO DAILY 06/24/24 10/01/24 atorvastatin 10 mg tablet 10 mg PO DAILY 06/24/24 10/01/24 benztropine 1 mg tablet 1 mg PO BID 06/24/24 10/01/24 buspirone 10 mg tablet 10 mg PO BID 06/24/24 10/01/24 clozapine 100 mg tablet 100 mg PO BEDTIME 06/24/24 10/01/24 fluoxetine 40 mg capsule 80 mg PO DAILY 06/24/24 10/01/24 fluphenazine HCl 5 mg tablet 15 mg PO BID 06/24/24 10/01/24 haloperidol 5 mg tablet 5 mg PO TID 06/24/24 10/01/24 lorazepam 0.5 mg tablet 0.5 mg PO BID PRN Anxiety 06/24/24 10/01/24 montelukast 10 mg tablet 10 mg PO BEDTIME 06/24/24 10/01/24 pantoprazole 20 mg tablet,delayed 40 mg PO BID 06/24/24 10/01/24 release prazosin 2 mg capsule 4 mg PO BEDTIME 06/24/24 10/01/24 metformin 500 mg tablet 500 mg PO BID 07/15/24 10/01/24 ascorbic acid (vitamin C) 500 mg 500 mg PO BID 10/01/24 10/01/24 tablet (Vitamin C) famotidine 20 mg tablet 10 mg PO TIDWM 10/01/24 10/01/24 ferrous sulfate 325 mg (65 mg 325 mg PO BID 10/01/24 10/01/24 iron) tablet fluticasone fur. 200 mcg-umeclid 1 ea inhalation DAILY 10/01/24 10/01/24 62.5 mcg-vilant 25 mcg inhalat.powder (Trelegy Ellipta) mirtazapine 15 mg tablet 15 mg PO BEDTIME 10/01/24 10/01/24 naproxen 250 mg tablet 250 mg PO BID PRN Pain 10/01/24 10/01/24 Previous Rx's ?Medication ?Instructions ?Recorded miconazole nitrate 2 % topical 1 appl topical BID #85 grams 07/22/24 powder (Athlete's Foot) nystatin 100,000 unit/gram topical 1 appl topical BID #60 grams 09/25/24 powder lactulose 20 gram/30 mL oral 20 g (30 mL) PO DAILY PRN 10/06/24 solution constipation 30 days #900 mL temazepam 15 mg capsule 15 mg PO BEDTIME PRN if awake at 10/06/24 2AM 30 days #30 caps cefuroxime axetil 250 mg tablet 250 mg PO BID #9 tabs 10/07/24 Allergies Allergy/AdvReac Type Severity Reaction Status Date / Time azithromycin [AZITHROMYCIN] Allergy Severe Rash Verified 10/07/24 14:08 Fish Containing Products Allergy Severe Anaphylaxis Verified 10/07/24 14:08 codeine [Codeine] Allergy Intermediate Rash Verified 10/07/24 14:08 Penicillins Allergy Intermediate Rash Verified 10/07/24 14:08 prednisone [Prednisone] Allergy Intermediate Rash Verified 10/07/24 14:08 Sulfa (Sulfonamide Allergy Intermediate Rash Verified 10/07/24 14:08 Antibiotics) [Sulfa (Sulfonamides)] ziprasidone [From Geodon] Allergy Intermediate dysuria, Verified 10/07/24 14:08 rash lithium Allergy Unknown Rash Verified 10/07/24 14:08 Review of Systems Review of Systems Yes all other systems are reviewed and are negative PMFSH Past Medical History Attestation statement: The following information was validated with the patient. Source: old records reviewed Medical History Asthma Suicidal ideation MDD (major depressive disorder), recurrent episode, severe Chest pain Acute anxiety COVID-19 Full body hives Major depression Dizziness Suicide attempt UTI (urinary tract infection) Acetaminophen overdose COVID History of attempted suicide History of non-suicidal self-harm Hypomagnesemia Suicide attempt Suicide attempt by acetaminophen overdose Acetaminophen overdose Depression Diabetes type 2, controlled Borderline personality disorder PTSD (post-traumatic stress disorder) Overdose GERD (gastroesophageal reflux disease) Mood disorder Hyperlipidemia Bronchitis Social History Social History Household Members: Other Household Members Other:: senior care members Housing: Other Housing Other:: senior care Do you presently have visiting nurse or other home services: No Unable to assess alcohol history related to: Unknown Alcohol intake: never Comment: sitter in room Patient Tobacco Use Status: Current everyday Tobacco user Tobacco use type: Cigarette Cigarette Packs Per Day: 1 Cigarettes Per Day: 20.0 Years Smoked: 10 e-Cigarette/Vaping Use: Never Used Second Hand Smoke Exposure: No Substance Use Type: Caffiene Advance Directives: No Advance Directives Information Provided: No Do you have a plan to hurt others: No Plan service: No Current occupational status: unemployed and disabled Sexual orientation: Straight/Heterosexual Physical Exam ED Vital Signs: Vital Signs - 24 hr 10/07/24 14:01 10/07/24 16:29 10/07/24 17:24 Temperature 97.9 F 97.9 F 97.9 F Pulse Rate 118 H 99 99 Respiratory Rate 18 16 16 Blood Pressure 141/109 H 132/75 132/75 Pulse Oximetry 97 98 98 Oxygen Delivery Method Room Air Room Air Room Air BMI result Body Mass Index 39.7 Appearance: Alert.?Oriented to person, place and time. No acute distress.?Normal affect.?? Neck: Normal inspection.? Neck supple.?? CVS: Heart sounds normal. Normal heart rate and rhythm.? Pulses normal.?? Respiratory: No respiratory distress.? Lung sounds clear to auscultation bilaterally?? Abdomen: Soft with diffuse tenderness upon palpation, primarily the right side.. No rebound tenderness at McBurney's point. Negative Michael sign. No CVAT. Normoactive bowel sounds. No pulsatile mass.?? Skin: Skin warm and dry.? Normal skin color.? Extremities: No lower extremity edema.? Neuro: Moves all extremities spontaneously. Sensation intact bilaterally. Ambulates with normal steady gait. Course Reevaluation(s) Reevaluation #1: Patient reports resolution of abdominal pain. Has had no further episodes nausea or vomiting while in the emergency department. She is tolerating oral intake without difficulty. She is requesting to be discharged home at this time which I feel is appropriate. She does continue to report dysuria with each void, she has trace leukocyte esterase, maybe early urinary tract infection. Received first dose of antibiotic in the emergency department, sent remainder prescription to pharmacy. We will contact her senior care staff members to facilitate transport home. Time: 16:52 Medical Decision Making Medical Decision Making MDM Narrative: Patient is a 38-year-old female with past medical history of depression, borderline personality disorder, diabetes, GERD, PTSD, history of multiple suicide attempts with Tylenol overdose presenting to emergency department for evaluation of acute abdominal pain with nausea and vomiting as per HPI. She denies any overdose attempt. Denies any use of OTC analgesics or medications for her symptoms. On evaluation she has diffuse tenderness to the abdomen though the right sides is reported to be worse than left. She arrives tachycardic but afebrile, may be secondary to dehydration. At this time not meet a SIRS criteria. No hypotension. She does endorse associated dysuria, obtain urinalysis for further evaluation. No peritoneal signs, no tenderness upon light palpation, no rebound tenderness guarding or progressive tenderness. She denies any associated chest pain shortness of breath or URI symptoms to suggest acute infectious respiratory condition. Suspect unlikely MS, AAA, aortic dissection to be less likely she is without any chest pain. No abdominal tenderness upon palpation, negative Michael sign, unlikely acute cholecystitis, choledocholithiasis, no fever or jaundice to suggest acute cholangitis, may possibly be biliary colic secondary to cholelithiasis. Denies associated acid reflux, no tenderness upon palpation over the epigastrium or left upper quadrant to suggest gastritis, no recent hematemesis history less likely to suggest PUD. Denies excessive alcohol consumption, although she does have a history of diabetes, her epigastric and left upper quadrant is without tenderness upon palpation, lower suspicion at this time for acute pancreatitis. No rebound tenderness at McBurney's point, rigidity, guarding to suggest acute appendicitis. No tenderness of the left lower quadrant nor associated nausea, vomiting, diarrhea, hematochezia or melena to suggest diverticulitis or GI bleed. No appreciable hernia to suggest strangulation/incarceration. Lower suspicion for bowel obstruction. No distention or rigidity to suggest GI perforation. Differential Diagnosis Differential Diagnoses: The differential diagnosis associated with the presentation includes (See narrative above) Admission/Observation Consideration of admission/observation: Escalation of care including admission/observation considered (See narrative above ) Lab Data MDM Lab Attestation statement: I reviewed the patient's lab results. 10/07/24 14:38 10/07/24 14:38 Labs: Lab Results 10/07/24 10/07/24 Range/Units 14:19 14:38 WBC 7.5 (4.8-10.8) X10*3/uL RBC 4.42 (4.20-5.50) X10*6/uL Hgb 13.5 (12.0-16.0) g/dl Hct 40.6 (37.0-47.0) % MCV 91.9 (80.0-98.0) fL MCH 30.5 (27.0-33.0) pg MCHC 33.3 (31.0-35.0) g/dl RDW 12.3 (11.0-16.0) % Plt Count 306 (160-400) X10*3/uL MPV 9.4 (9.4-12.3) fL Immature Gran % (Auto) 0.5 H (0.0-0.4) % Neut % (Auto) 68.2 (45-73) % Lymph % (Auto) 18.7 L (20-40) % [place] % (Auto) 8.2 (2-11) % Eos % (Auto) 4.0 (0-4) % Baso % (Auto) 0.4 (0-2) % Lymph # (Auto) 1.4 (1.2-4.9) X10*3/uL [place] # (Auto) 0.6 (0.1-1.2) X10*3/uL Eos # (Auto) 0.3 (0.0-0.4) X10*3/uL Baso # (Auto) 0.0 (0.0-0.2) X10*3/uL Abs Immat Gran (auto) 0.04 H (0.00-0.03) X10*3/uL Absolute Neuts (auto) 5.1 (2.0-8.3) x10*3/uL Absolute Nucleated RBC 0.000 (0.0-0.012) X10*3/uL Nucleated RBC % (auto) 0.0 (0.0-0.2) /100WBC Sodium 140 (135-145) mmol/L Potassium 3.9 (3.3-5.1) mmol/L Chloride 105 (96-108) mmol/L Carbon Dioxide 25 (22-29) mmol/L Anion Gap 14 (12-20) BUN 15 (9-16) mg/dL Creatinine 0.74 (0.5-1.4) mg/dL Estim Creat Clear Calc 112.2 Estimated GFR > 60 Random Glucose 132 H (60-115) mg/dL Calcium 9.7 (8.4-10.2) mg/dL Magnesium 1.8 (1.6-2.6) mg/dL Total Bilirubin 0.2 (0.0-1.0) mg/dL AST 21 (5-31) U/L ALT 23 (0-31) U/L Alkaline Phosphatase 160 H (39-117) U/L Total Protein 7.5 (6.5-8.0) g/dL Albumin 4.5 (3.5-5.0) g/dL Lipase 15 (8-78) U/L Urine Color Yellow Urine Appearance Clear Urine pH 6.0 (5.0-9.0) Ur Specific [place] 1.015 (1.005-1.025) Urine Protein Negative (Neg-Trace) mg/dL Urine Glucose (UA) Negative (Negative) mg/dL Urine Ketones Negative (Negative) mg/dL Urine Blood Negative (Negative) Urine Nitrite Negative (Negative) Ur Leukocyte Esterase Trace H (Negative) Urine RBC 0-2 (0-2) /HPF Urine WBC 0-5 (0-5) /HPF Ur Squamous Epith Cells 3-5 (0-2) /HPF Urine Bacteria None Seen (None Seen) Hyaline Casts 0-2 (0-2) /LPF Urine Test NEGATIVE (NEGATIVE) Salicylates < 5.0 L (15-30) mg/dL Acetaminophen < 3 (<30) mcg/mL Influenza Type A (PCR) NEGATIVE (Negative) Influenza Type B (PCR) NEGATIVE (Negative) RSV RNA Qual (PCR) NEGATIVE (Negative) SARS-CoV-2 RNA (RT-PCR) NEGATIVE (Negative) Independent Historian Clinical information obtained from an independent historian. History obtained from or confirmed by: EMS External Record Review External record reviewed: Outpatient record Chronic Conditions Patient?s care impacted by: Other (See narrative above) Medications Administered Discontinued Medications Generic Name Dose Route Start Last Admin Trade Name Freq PRN Reason Stop Dose Admin Cefuroxime Axetil 250 mg 10/07/24 16:56 10/07/24 17:06 Cefuroxime Axetil 250 Mg Tablet PO 10/07/24 16:57 250 mg ONCE ONE Administration Sodium Chloride 1,000 mls @ 999 mls/hr 10/07/24 14:15 10/07/24 16:28 Ns IV 10/07/24 15:15 Infused .Q1H1M YULY Infusion Ondansetron HCl 4 mg 10/07/24 14:09 10/07/24 14:42 Ondansetron Hcl 4 Mg/2 Ml Vial IVPUSH 10/07/24 14:10 4 mg ONCE ONE Administration Discharge Plan Discharge Clinical Impression: Urinary tract infection Patient Disposition: Home, Self-Care Instructions: Urinary Tract Infection in Women (ED) Prescriptions: New cefuroxime axetil 250 mg tablet 250 mg PO BID Qty: 9 0RF No Action ascorbic acid (vitamin C) [Vitamin C] 500 mg Tablet 500 mg PO BID ferrous sulfate 325 mg (65 mg iron) Tablet 325 mg PO BID mirtazapine 15 mg tablet 15 mg PO BEDTIME Trelegy Ellipta 200-62.5-25 mcg blister with device 1 ea inhalation DAILY naproxen 250 mg Tablet 250 mg PO BID PRN (Reason: Pain) famotidine 20 mg tablet 10 mg PO TIDWM temazepam 15 mg Capsule 15 mg PO BEDTIME PRN (Reason: if awake at 2AM) 30 Days Qty: 30 0RF lactulose 20 gram/30 mL solution 20 g PO DAILY PRN (Reason: constipation) 30 Days Qty: 900 0RF fluoxetine 40 mg capsule 80 mg PO DAILY haloperidol 5 mg tablet 5 mg PO TID atorvastatin 10 mg tablet 10 mg PO DAILY clozapine 100 mg tablet 100 mg PO BEDTIME amlodipine 5 mg tablet 5 mg PO DAILY pantoprazole 20 mg tablet,delayed release (DR/EC) 40 mg PO BID lorazepam 0.5 mg tablet 0.5 mg PO BID PRN (Reason: Anxiety) buspirone 10 mg tablet 10 mg PO BID benztropine 1 mg tablet 1 mg PO BID montelukast 10 mg tablet 10 mg PO BEDTIME albuterol sulfate 90 mcg/actuation HFA aerosol inhaler 2 puff inhalation Q6H PRN (Reason: Wheezing) fluphenazine HCl 5 mg tablet 15 mg PO BID prazosin 2 mg capsule 4 mg PO BEDTIME metformin 500 mg tablet 500 mg PO BID miconazole nitrate [Athlete's Foot] 2 % powder 1 appl topical BID Qty: 85 0RF nystatin 100,000 unit/gram powder 1 appl topical BID Qty: 60 0RF Interventions: ED Discharge Assessment Last Done: 10/07/24 17:24 Discharge Date/Time: 10/07/24 17:25 Print Language: Senegalese
[2024-10-07 14:26] LABS: Appearance Urine Clear; Color Urine Yellow; Glucose Urine UA Negative (Negative); Leukocyte Esterase Urine Trace (Negative); Nitrite Urine Negative (Negative); Specific Gravity - Urine 1.015 (1.005-1.025); UMIC TRIGGER UACC YES; Urine Blood Negative (Negative); Urine Ketones Negative (Negative); Urine Protein Negative (Neg-Trace)
[2024-10-07 14:28] LABS: UPreg QC Valid YES; Urine Pregnancy NEGATIVE (NEGATIVE)
[2024-10-07 14:30] LABS: Bacteria Urine None Seen (None Seen); Hyaline Casts Urine 0-2 /LPF (0-2); RBC Urine 0-2 /HPF (0-2); WBC Urine 0-5 /HPF (0-5)
[2024-10-07 14:42] LABS: MANUAL DIFF FLAG NO
[2024-10-07] MEDS: 0.9 % Sodium Chloride 1,000 ML 999 ML IV (14:42)
[2024-10-07] MEDS: ondansetron HCL 4 MG/2 ML VIAL IVPUSH (14:42)
[2024-10-07 14:46] LABS: Basophils Percent Auto 0.4 % (0-2); Eosinophils Absolute Auto 0.3 X10*3/uL (0.0-0.4); Hematocrit 40.6 % (37.0-47.0); Hemoglobin 13.5 g/dl (12.0-16.0); Imm Gran Abs Auto 0.04 X10*3/uL (0.00-0.03); Imm Gran Pct Auto 0.5 % (0.0-0.4); Lymphocytes Absolute Auto 1.4 X10*3/uL (1.2-4.9); Lymphocytes Percent Auto 18.7 % (20-40); Mean Corpuscular HGB Conc 33.3 g/dl (31.0-35.0); Mean Corpuscular Hemoglobin 30.5 pg (27.0-33.0); Mean Corpuscular Volume 91.9 fL (80.0-98.0); Mean Platelet Volume 9.4 fL (9.4-12.3); Monocytes Absolute Auto 0.6 X10*3/uL (0.1-1.2); Monocytes Percent Auto 8.2 % (2-11); Neutrophils Absolute Auto 5.1 x10*3/uL (2.0-8.3); Neutrophils Percent Auto 68.2 % (45-73); Platelet Count 306 X10*3/uL (160-400); Red Blood Count 4.42 X10*6/uL (4.20-5.50); Red Cell Distribution Width 12.3 % (11.0-16.0); White Blood Count 7.5 X10*3/uL (4.8-10.8)
[2024-10-07 14:58] LABS: Alanine Aminotransferase 23 U/L (0-31); Albumin Level 4.5 g/dL (3.5-5.0); Alkaline Phosphatase 160 U/L (39-117); Anion Gap 14 (12-20); Aspartate Amino Transferase 21 U/L (5-31); Bilirubin Total 0.2 mg/dL (0.0-1.0); Blood Urea Nitrogen 15 mg/dL (9-16); Calcium 9.7 mg/dL (8.4-10.2); Carbon Dioxide 25 mmol/L (22-29); Chloride 105 mmol/L (96-108); Creatinine Clr Calc Pharmacy 112.2; Estimated Glomerular Filt Rate > 60; Glucose Random 132 mg/dL (60-115); Lipase 15 U/L (8-78); Magnesium 1.8 mg/dL (1.6-2.6); Potassium 3.9 mmol/L (3.3-5.1); Sodium 140 mmol/L (135-145); Total Protein 7.5 g/dL (6.5-8.0)
[2024-10-07 15:03] LABS: Acetaminophen LAB < 3 mcg/mL (<30); Salicylate < 5.0 mg/dL (15-30)
--- NOTE | 2024-10-07 15:32 | PC.NURSE ---
reports improvement in nausea. provided with saltines at this time. fluids continue to infuse
[2024-10-07 16:13] LABS: Influenza A PCR NEGATIVE (Negative); Influenza B PCR NEGATIVE (Negative); Resp Syncy Virus RNA Qual PCR NEGATIVE (Negative); SARS COV2 PCR INHOUSE NEGATIVE (Negative)
[2024-10-07 16:29] VITALS: BP 132/75; PULSE 99; RESP 16; TEMP 36.6; O2SAT 98
[2024-10-07] MEDS: cefuroxime axetiL 250 MG TABLET PO (17:06)
--- NOTE | 2024-10-07 17:14 | PC.NURSE ---
call placed to [facility], staff unable to pick her up d/t staffing issues.
[2024-10-07 17:24] VITALS: BP 132/75; PULSE 99; RESP 16; TEMP 36.6; O2SAT 98
== END 2024-10-07 17:25 | disposition home or self-care (01) ==
PROVIDERS: Nurse Practitioner Family; Emergency Provider Student in an Organized Health Care Education/Training Program; PCP Nurse Practitioner Family
DX: N39.0 Urinary tract infection, site not specified (principal); R11.2 Nausea with vomiting, unspecified; R10.2 Pelvic and perineal pain; F17.210 Nicotine dependence, cigarettes, uncomplicated; Z79.899 Other long term (current) drug therapy; Z03.818 Encounter for observation for suspected exposure to other biological agents ruled out
CPT/HCPCS: 0241U; 36415; 80053; 80143; 80179; 81001; 81025; 83690; 83735; 85025; 96361; 96374; 99284; J2405

== ENCOUNTER 2024-10-13 03:42 | Emergency (ER) | payer MEDICARE, MEDICAID, SELFPAY ==
[2024-10-13 03:53] VITALS: BMI 44.9
[2024-10-13 04:24] VITALS: BP 130/88; PULSE 108; RESP 16; TEMP 37.7; O2SAT 95
--- NOTE | 2024-10-13 04:44 | ED_ITS ---
HPI - Psych General Chief Complaint: Psychiatric Symptoms Stated Complaint: SECTION 12 Time Seen by Provider: 10/13/24 04:44 Source: patient Mode of arrival: ambulatory Limitations: no limitations History of Present Illness ED Provider: Dr. Eileen Ryan HPI Narrative: Patient comes to the emergency room complaining of suicidal ideation. Patient states that in 3 days it is the anniversary of her mother's . Patient states that she wants to and be with her. Patient has superficial abrasions to both distal upper extremities. Patient denies harming herself in any other way including p.o. medications. Denies using drugs. Related Data Home Medications ?Medication ?Instructions ?Recorded ?Confirmed albuterol sulfate 90 mcg/actuation 2 puff inhalation Q6H PRN Wheezing 06/24/24 10/01/24 aerosol inhaler amlodipine 5 mg tablet 5 mg PO DAILY 06/24/24 10/01/24 atorvastatin 10 mg tablet 10 mg PO DAILY 06/24/24 10/01/24 benztropine 1 mg tablet 1 mg PO BID 06/24/24 10/01/24 buspirone 10 mg tablet 10 mg PO BID 06/24/24 10/01/24 clozapine 100 mg tablet 100 mg PO BEDTIME 06/24/24 10/01/24 fluoxetine 40 mg capsule 80 mg PO DAILY 06/24/24 10/01/24 fluphenazine HCl 5 mg tablet 15 mg PO BID 06/24/24 10/01/24 haloperidol 5 mg tablet 5 mg PO TID 06/24/24 10/01/24 lorazepam 0.5 mg tablet 0.5 mg PO BID PRN Anxiety 06/24/24 10/01/24 montelukast 10 mg tablet 10 mg PO BEDTIME 06/24/24 10/01/24 pantoprazole 20 mg tablet,delayed 40 mg PO BID 06/24/24 10/01/24 release prazosin 2 mg capsule 4 mg PO BEDTIME 06/24/24 10/01/24 metformin 500 mg tablet 500 mg PO BID 07/15/24 10/01/24 ascorbic acid (vitamin C) 500 mg 500 mg PO BID 10/01/24 10/01/24 tablet (Vitamin C) famotidine 20 mg tablet 10 mg PO TIDWM 10/01/24 10/01/24 ferrous sulfate 325 mg (65 mg 325 mg PO BID 10/01/24 10/01/24 iron) tablet fluticasone fur. 200 mcg-umeclid 1 ea inhalation DAILY 10/01/24 10/01/24 62.5 mcg-vilant 25 mcg inhalat.powder (Trelegy Ellipta) mirtazapine 15 mg tablet 15 mg PO BEDTIME 10/01/24 10/01/24 naproxen 250 mg tablet 250 mg PO BID PRN Pain 10/01/24 10/01/24 Previous Rx's ?Medication ?Instructions ?Recorded miconazole nitrate 2 % topical 1 appl topical BID #85 grams 07/22/24 powder (Athlete's Foot) nystatin 100,000 unit/gram topical 1 appl topical BID #60 grams 09/25/24 powder lactulose 20 gram/30 mL oral 20 g (30 mL) PO DAILY PRN 10/06/24 solution constipation 30 days #900 mL temazepam 15 mg capsule 15 mg PO BEDTIME PRN if awake at 10/06/24 2AM 30 days #30 caps cefuroxime axetil 250 mg tablet 250 mg PO BID #9 tabs 10/07/24 Allergies Allergy/AdvReac Type Severity Reaction Status Date / Time azithromycin [AZITHROMYCIN] Allergy Severe Rash Verified 10/13/24 03:56 Fish Containing Products Allergy Severe Anaphylaxis Verified 10/13/24 03:56 codeine [Codeine] Allergy Intermediate Rash Verified 10/13/24 03:56 Penicillins Allergy Intermediate Rash Verified 10/13/24 03:56 prednisone [Prednisone] Allergy Intermediate Rash Verified 10/13/24 03:56 Sulfa (Sulfonamide Allergy Intermediate Rash Verified 10/13/24 03:56 Antibiotics) [Sulfa (Sulfonamides)] ziprasidone [From Geodon] Allergy Intermediate dysuria, Verified 10/13/24 03:56 rash lithium Allergy Unknown Rash Verified 10/13/24 03:56 Review of Systems 2 Review of Systems: Constitutional : No Weight loss, No Fever, No Chills, No Night Sweats, No Fatigue, No Malaise ENT/Mouth : No Hearing loss, No Ear Pain, No Nasal Congestion, No Sinus Pain, No Hoarseness, No sore throat, No Rhinorrhea, No Swallowing Difficulty Eyes: No Eye Pain, No Swelling, No Redness, No Foreign Body, No Discharge, No Vision Changes Cardiovascular : No Chest Pain, No SOB, No Dyspnea on Exertion, No Orthopnea, No Edema, No Palpitations Respiratory : No Cough, No Sputum, No Wheezing, No Smoke Exposure, No Dyspnea Gastrointestinal : No Nausea, No Vomiting, No Diarrhea, No Constipation, No abdominal Pain, No Hematochezia, No Melena Genitourinary : no irregular bleeding, No Dysuria, No Urinary Frequency, No Hematuria, No Urinary Incontinence, No Urgency, No Flank Pain, No Urinary Flow Changes, No Hesitancy Musculoskeletal : No joint pain, No Myalgias, No Joint Swelling Skin : No Skin Lesions, No rash Neuro : No Weakness, No Numbness, No Paresthesias, No Loss of Consciousness, No Dizziness, No Headache Psych : Lying of anxiety, depression, SI Heme/Lymph: No Bruising, No Bleeding,No Lymphadenopathy Endocrine : No Polyuria, No Polydipsia, No Temperature Intolerance PMFSH Past Medical History Medical History Asthma Suicidal ideation MDD (major depressive disorder), recurrent episode, severe Chest pain Acute anxiety COVID-19 Full body hives Major depression Dizziness Suicide attempt UTI (urinary tract infection) Acetaminophen overdose COVID History of attempted suicide History of non-suicidal self-harm Hypomagnesemia Suicide attempt Suicide attempt by acetaminophen overdose Acetaminophen overdose Depression Diabetes type 2, controlled Borderline personality disorder PTSD (post-traumatic stress disorder) Overdose GERD (gastroesophageal reflux disease) Mood disorder Hyperlipidemia Bronchitis Social History Social History Household Members: Other Household Members Other:: halfway members Housing: Other Housing Other:: halfway Do you presently have visiting nurse or other home services: No Unable to assess alcohol history related to: Unknown Alcohol intake: never Comment: sitter in room Patient Tobacco Use Status: Current everyday Tobacco user Tobacco use type: Cigarette Cigarette Packs Per Day: 1 Cigarettes Per Day: 20.0 Years Smoked: 10 e-Cigarette/Vaping Use: Never Used Second Hand Smoke Exposure: No Substance Use Type: Caffiene Advance Directives: No Advance Directives Information Provided: Yes Do you have a plan to hurt others: No Plan service: No Current occupational status: unemployed and disabled Sexual orientation: Straight/Heterosexual Physical Exam 2 Vital Signs: Vital Signs: Last Vital Signs Temp 99.8 F 10/13/24 04:24 Pulse 108 H 10/13/24 04:24 Resp 16 10/13/24 04:24 BP 130/88 10/13/24 04:24 Pulse Ox 95 10/13/24 04:24 O2 Del Method Room Air 10/13/24 04:24 BMI result Body Mass Index 44.9 Const: Other: Appearance: Alert. Oriented X3. No acute distress. Eyes: Pupils equal, round and reactive to light. ENT: Pharynx normal. Neck: Normal inspection. Neck supple. No lymph nodes noted. No crepitus CVS: Normal heart rate and rhythm. Pulses normal. Normal S1 and S2 Respiratory: No respiratory distress. Breath sounds normal. No Wheezing. No rales Abdomen: Soft and nontender. No rigidity. No distention. Skin: Skin warm and dry. Normal skin color. Normal skin turgor. Extremities: Patient has superficial lacerations to both forearms, stitches not required Neuro: Oriented X 3. No motor deficit. No sensory deficit. Moving all extremities. No slurred speech. CN 2 through 12 grossly intact Psych: calm, cooperative, normal affect Course Course Course Narrative: Patient is well-known to the emergency and care team service All of patient's labs pending Care team consult pending Physician observation started at 04:45 Medical Decision Making Medical Decision Making [facility] Narrative: My interpretation of labs: Patient's hematology and chemistry at baseline, urinalysis negative for UTI, negative for EtOH, negative for drugs of abuse Care team evaluated the patient, patient is all longer feeling suicidal, feels better after talking to the care team, patient ready to be discharged. At this time, 06:56, patient being discharged Differential Diagnosis Differential Diagnoses: The differential diagnosis associated with the presentation includes (Anxiety, depression) Admission/Observation Consideration of admission/observation: Escalation of care including admission/observation considered (Patient was under physician observation waiting to be evaluated by the care team) Lab Data [facility] Lab Attestation statement: I reviewed the patient's lab results. 10/13/24 04:45 10/13/24 04:45 Labs: Lab Results 10/13/24 10/13/24 Range/Units 04:45 06:11 WBC 8.0 (4.8-10.8) X10*3/uL RBC 4.06 L (4.20-5.50) X10*6/uL Hgb 12.5 (12.0-16.0) g/dl Hct 36.9 L (37.0-47.0) % MCV 90.9 (80.0-98.0) fL MCH 30.8 (27.0-33.0) pg MCHC 33.9 (31.0-35.0) g/dl RDW 12.2 (11.0-16.0) % Plt Count 289 (160-400) X10*3/uL MPV 9.3 L (9.4-12.3) fL Immature Gran % (Auto) 0.7 H (0.0-0.4) % Neut % (Auto) 63.5 (45-73) % Lymph % (Auto) 21.4 (20-40) % [place] % (Auto) 8.5 (2-11) % Eos % (Auto) 5.4 H (0-4) % Baso % (Auto) 0.5 (0-2) % Lymph # (Auto) 1.7 (1.2-4.9) X10*3/uL [place] # (Auto) 0.7 (0.1-1.2) X10*3/uL Eos # (Auto) 0.4 (0.0-0.4) X10*3/uL Baso # (Auto) 0.0 (0.0-0.2) X10*3/uL Abs Immat Gran (auto) 0.06 H (0.00-0.03) X10*3/uL Absolute Neuts (auto) 5.1 (2.0-8.3) x10*3/uL Absolute Nucleated RBC 0.000 (0.0-0.012) X10*3/uL Nucleated RBC % (auto) 0.0 (0.0-0.2) /100WBC Sodium 140 (135-145) mmol/L Potassium 3.6 (3.3-5.1) mmol/L Chloride 105 (96-108) mmol/L Carbon Dioxide 23 (22-29) mmol/L Anion Gap 16 (12-20) BUN 8 L (9-16) mg/dL Creatinine 0.70 (0.5-1.4) mg/dL Estim Creat Clear Calc 109.4 Estimated GFR > 60 Random Glucose 170 H (60-115) mg/dL Calcium 8.7 D (8.4-10.2) mg/dL Total Bilirubin 0.1 (0.0-1.0) mg/dL AST 22 (5-31) U/L ALT 23 (0-31) U/L Alkaline Phosphatase 151 H (39-117) U/L Total Protein 6.8 (6.5-8.0) g/dL Albumin 4.0 (3.5-5.0) g/dL Lipase 24 (8-78) U/L Urine Color Yellow Urine Appearance Clear Urine pH 5.5 (5.0-9.0) Ur Specific [place] <= 1.005 (1.005-1.025) Urine Protein Negative (Neg-Trace) mg/dL Urine Glucose (UA) Negative (Negative) mg/dL Urine Ketones Negative (Negative) mg/dL Urine Blood Negative (Negative) Urine Nitrite Negative (Negative) Ur Leukocyte Esterase Negative (Negative) Salicylates < 5.0 L (15-30) mg/dL Urine Opiates Screen Not Detected (Not Detect) Ur Buprenorphine Scrn Not Detected (Not Detect) ng/mL Ur Oxycodone Screen Not Detected (Not Detect) ng/mL Urine Methadone Screen Not Detected (Not Detect) ng/mL Urine Fentanyl Screen Not Detected (Not Detect) Acetaminophen < 3 (<30) mcg/mL Ur Barbiturates Screen Not Detected (Not Detect) Ur Phencyclidine Scrn Not Detected (Not Detect) Ur Amphetamines Screen Not Detected (Not Detect) U Benzodiazepines Scrn Not Detected (Not Detect) Urine Cocaine Screen Not Detected (Not Detect) U Marijuana (THC) Screen Not Detected (Not Detect) Ethyl Alcohol < 10 mg/dL Discharge Plan Discharge Clinical Impression: Anxiety Patient Disposition: Home, Self-Care Instructions: Anxiety (ED) Additional Instructions: Please follow-up with your primary care physician tomorrow. If you have any worsening or new symptoms, please return to the emergency room or call 911 Prescriptions: No Action ascorbic acid (vitamin C) [Vitamin C] 500 mg Tablet 500 mg PO BID ferrous sulfate 325 mg (65 mg iron) Tablet 325 mg PO BID mirtazapine 15 mg tablet 15 mg PO BEDTIME Trelegy Ellipta 200-62.5-25 mcg blister with device 1 ea inhalation DAILY naproxen 250 mg Tablet 250 mg PO BID PRN (Reason: Pain) famotidine 20 mg tablet 10 mg PO TIDWM temazepam 15 mg Capsule 15 mg PO BEDTIME PRN (Reason: if awake at 2AM) 30 Days Qty: 30 0RF lactulose 20 gram/30 mL solution 20 g PO DAILY PRN (Reason: constipation) 30 Days Qty: 900 0RF cefuroxime axetil 250 mg tablet 250 mg PO BID Qty: 9 0RF fluoxetine 40 mg capsule 80 mg PO DAILY haloperidol 5 mg tablet 5 mg PO TID atorvastatin 10 mg tablet 10 mg PO DAILY clozapine 100 mg tablet 100 mg PO BEDTIME amlodipine 5 mg tablet 5 mg PO DAILY pantoprazole 20 mg tablet,delayed release (DR/EC) 40 mg PO BID lorazepam 0.5 mg tablet 0.5 mg PO BID PRN (Reason: Anxiety) buspirone 10 mg tablet 10 mg PO BID benztropine 1 mg tablet 1 mg PO BID montelukast 10 mg tablet 10 mg PO BEDTIME albuterol sulfate 90 mcg/actuation HFA aerosol inhaler 2 puff inhalation Q6H PRN (Reason: Wheezing) fluphenazine HCl 5 mg tablet 15 mg PO BID prazosin 2 mg capsule 4 mg PO BEDTIME metformin 500 mg tablet 500 mg PO BID miconazole nitrate [Athlete's Foot] 2 % powder 1 appl topical BID Qty: 85 0RF nystatin 100,000 unit/gram powder 1 appl topical BID Qty: 60 0RF Print Language: Iraqi
[2024-10-13 04:50] LABS: MANUAL DIFF FLAG NO
[2024-10-13 04:51] LABS: Basophils Percent Auto 0.5 % (0-2); Eosinophils Absolute Auto 0.4 X10*3/uL (0.0-0.4); Eosinophils Percent Auto 5.4 % (0-4); Hematocrit 36.9 % (37.0-47.0); Hemoglobin 12.5 g/dl (12.0-16.0); Imm Gran Abs Auto 0.06 X10*3/uL (0.00-0.03); Imm Gran Pct Auto 0.7 % (0.0-0.4); Lymphocytes Absolute Auto 1.7 X10*3/uL (1.2-4.9); Lymphocytes Percent Auto 21.4 % (20-40); Mean Corpuscular HGB Conc 33.9 g/dl (31.0-35.0); Mean Corpuscular Hemoglobin 30.8 pg (27.0-33.0); Mean Corpuscular Volume 90.9 fL (80.0-98.0); Mean Platelet Volume 9.3 fL (9.4-12.3); Monocytes Absolute Auto 0.7 X10*3/uL (0.1-1.2); Monocytes Percent Auto 8.5 % (2-11); Neutrophils Absolute Auto 5.1 x10*3/uL (2.0-8.3); Neutrophils Percent Auto 63.5 % (45-73); Platelet Count 289 X10*3/uL (160-400); Red Blood Count 4.06 X10*6/uL (4.20-5.50); Red Cell Distribution Width 12.2 % (11.0-16.0)
[2024-10-13 05:07] LABS: Alanine Aminotransferase 23 U/L (0-31); Alkaline Phosphatase 151 U/L (39-117); Anion Gap 16 (12-20); Aspartate Amino Transferase 22 U/L (5-31); Bilirubin Total 0.1 mg/dL (0.0-1.0); Blood Urea Nitrogen 8 mg/dL (9-16); Calcium 8.7 mg/dL (8.4-10.2); Carbon Dioxide 23 mmol/L (22-29); Chloride 105 mmol/L (96-108); Creatinine Clr Calc Pharmacy 109.4; Estimated Glomerular Filt Rate > 60; Ethanol < 10 mg/dL; Glucose Random 170 mg/dL (60-115); Lipase 24 U/L (8-78); Potassium 3.6 mmol/L (3.3-5.1); Sodium 140 mmol/L (135-145); Total Protein 6.8 g/dL (6.5-8.0)
[2024-10-13 05:08] LABS: Acetaminophen LAB < 3 mcg/mL (<30); Salicylate < 5.0 mg/dL (15-30)
[2024-10-13 06:17] LABS: Appearance Urine Clear; Color Urine Yellow; Glucose Urine UA Negative (Negative); Leukocyte Esterase Urine Negative (Negative); Nitrite Urine Negative (Negative); PH 5.5 (5.0-9.0); Specific Gravity - Urine <= 1.005 (1.005-1.025); Urine Blood Negative (Negative); Urine Ketones Negative (Negative); Urine Protein Negative (Neg-Trace)
[2024-10-13 06:29] LABS: Amphetamine Screen Urine Not Detected (Not Detect); Barbiturates, Urine Not Detected (Not Detect); Benzodiazepines Screen Urine Not Detected (Not Detect); Buprenorphine Scr Not Detected (Not Detect); Cannabinoid Screen Urine Not Detected (Not Detect); Cocaine Screen Urine Not Detected (Not Detect); Fentanyl, urine Not Detected (Not Detect); Methadone Screen, Urine Not Detected (Not Detect); Opiate Screen Urine Not Detected (Not Detect); Oxycodone Screen Urine Not Detected (Not Detect); Phencyclidine Screen Urine Not Detected (Not Detect)
--- NOTE | 2024-10-13 06:38 | MHC.EDTECH ---
belongings in [facility] [place]
[2024-10-13 07:14] VITALS: BP 129/87; PULSE 105; RESP 15; TEMP 36.9; O2SAT 94
[2024-10-13 07:16] VITALS: BP 129/87; PULSE 105; RESP 15; TEMP 36.9; O2SAT 94
== END 2024-10-13 07:17 | disposition home or self-care (01) ==
PROVIDERS: Emergency Provider Emergency Medicine; PCP Nurse Practitioner Family
DX: R45.851 Suicidal ideations (principal); F41.9 Anxiety disorder, unspecified; E11.9 Type 2 diabetes mellitus without complications; F39 Unspecified mood [affective] disorder; E78.5 Hyperlipidemia, unspecified; Z79.899 Other long term (current) drug therapy
CPT/HCPCS: 36415; 80053; 80143; 80179; 80307; 81003; 83690; 85025; 99284; S9485

== ENCOUNTER 2024-10-13 15:39 | Emergency (ER) | payer MEDICARE, MEDICAID, SELFPAY ==
[2024-10-13 15:58] VITALS: BP 153/99; PULSE 100; RESP 16; TEMP 36.3; O2SAT 96; BMI 44.8
--- NOTE | 2024-10-13 16:18 | PC.NURSE ---
belong[facility] in [facility] [place] [address]
[2024-10-13 16:41] LABS: MANUAL DIFF FLAG NO
[2024-10-13 16:44] LABS: Basophils Percent Auto 0.5 % (0-2); Eosinophils Absolute Auto 0.4 X10*3/uL (0.0-0.4); Eosinophils Percent Auto 4.9 % (0-4); Hematocrit 38.3 % (37.0-47.0); Imm Gran Abs Auto 0.07 X10*3/uL (0.00-0.03); Imm Gran Pct Auto 0.9 % (0.0-0.4); Lymphocytes Absolute Auto 1.5 X10*3/uL (1.2-4.9); Lymphocytes Percent Auto 19.1 % (20-40); Mean Corpuscular HGB Conc 33.9 g/dl (31.0-35.0); Mean Corpuscular Hemoglobin 30.8 pg (27.0-33.0); Mean Corpuscular Volume 90.8 fL (80.0-98.0); Mean Platelet Volume 9.2 fL (9.4-12.3); Monocytes Absolute Auto 0.7 X10*3/uL (0.1-1.2); Monocytes Percent Auto 8.2 % (2-11); Neutrophils Absolute Auto 5.3 x10*3/uL (2.0-8.3); Neutrophils Percent Auto 66.4 % (45-73); Platelet Count 314 X10*3/uL (160-400); Red Blood Count 4.22 X10*6/uL (4.20-5.50); Red Cell Distribution Width 12.3 % (11.0-16.0)
[2024-10-13 16:57] LABS: Amphetamine Screen Urine Not Detected (Not Detect); Barbiturates, Urine Not Detected (Not Detect); Benzodiazepines Screen Urine Not Detected (Not Detect); Buprenorphine Scr Not Detected (Not Detect); Cannabinoid Screen Urine Not Detected (Not Detect); Cocaine Screen Urine Not Detected (Not Detect); Fentanyl, urine Not Detected (Not Detect); Methadone Screen, Urine Not Detected (Not Detect); Opiate Screen Urine Not Detected (Not Detect); Oxycodone Screen Urine Not Detected (Not Detect); Phencyclidine Screen Urine Not Detected (Not Detect)
[2024-10-13 17:16] LABS: Albumin Level 4.3 g/dL (3.5-5.0); Alkaline Phosphatase 152 U/L (39-117); Anion Gap 13 (12-20); Aspartate Amino Transferase 32 U/L (5-31); Bilirubin Total 0.1 mg/dL (0.0-1.0); Blood Urea Nitrogen 8 mg/dL (9-16); Calcium 9.3 mg/dL (8.4-10.2); Carbon Dioxide 24 mmol/L (22-29); Chloride 108 mmol/L (96-108); Creatinine Clr Calc Pharmacy 110.8; Estimated Glomerular Filt Rate > 60; Ethanol < 10 mg/dL; Glucose Random 128 mg/dL (60-115); HCG Quantitative < 2 mIU/mL; Potassium 4.1 mmol/L (3.3-5.1); Sodium 141 mmol/L (135-145); Total Protein 7.3 g/dL (6.5-8.0)
--- NOTE | 2024-10-13 17:40 | ED_ITS ---
HPI - Psych General Chief Complaint: Psychiatric Symptoms Stated Complaint: hearing voices Time Seen by Provider: 10/13/24 16:13 Source: patient Limitations: no limitations History of Present Illness ED Provider: Carolina Rouse PA-C HPI Narrative: 48-year-old female with a history of PTSD, depression, GERD, type 2 diabetes borderline personality disorder, who is well known to the emergency department, presents from her custodial for evaluation of auditory hallucinations and SI. Patient states she has been having auditory hallucinations all day, she made the comment in triage that she ?just wants to ?. Related Data Home Medications ?Medication ?Instructions ?Recorded ?Confirmed albuterol sulfate 90 mcg/actuation 2 puff inhalation Q6H PRN Wheezing 06/24/24 10/01/24 aerosol inhaler amlodipine 5 mg tablet 5 mg PO DAILY 06/24/24 10/01/24 atorvastatin 10 mg tablet 10 mg PO DAILY 06/24/24 10/01/24 benztropine 1 mg tablet 1 mg PO BID 06/24/24 10/01/24 buspirone 10 mg tablet 10 mg PO BID 06/24/24 10/01/24 clozapine 100 mg tablet 100 mg PO BEDTIME 06/24/24 10/01/24 fluoxetine 40 mg capsule 80 mg PO DAILY 06/24/24 10/01/24 fluphenazine HCl 5 mg tablet 15 mg PO BID 06/24/24 10/01/24 haloperidol 5 mg tablet 5 mg PO TID 06/24/24 10/01/24 lorazepam 0.5 mg tablet 0.5 mg PO BID PRN Anxiety 06/24/24 10/01/24 montelukast 10 mg tablet 10 mg PO BEDTIME 06/24/24 10/01/24 pantoprazole 20 mg tablet,delayed 40 mg PO BID 06/24/24 10/01/24 release prazosin 2 mg capsule 4 mg PO BEDTIME 06/24/24 10/01/24 metformin 500 mg tablet 500 mg PO BID 07/15/24 10/01/24 ascorbic acid (vitamin C) 500 mg 500 mg PO BID 10/01/24 10/01/24 tablet (Vitamin C) famotidine 20 mg tablet 10 mg PO TIDWM 10/01/24 10/01/24 ferrous sulfate 325 mg (65 mg 325 mg PO BID 10/01/24 10/01/24 iron) tablet fluticasone fur. 200 mcg-umeclid 1 ea inhalation DAILY 10/01/24 10/01/24 62.5 mcg-vilant 25 mcg inhalat.powder (Trelegy Ellipta) mirtazapine 15 mg tablet 15 mg PO BEDTIME 10/01/24 10/01/24 naproxen 250 mg tablet 250 mg PO BID PRN Pain 10/01/24 10/01/24 Previous Rx's ?Medication ?Instructions ?Recorded miconazole nitrate 2 % topical 1 appl topical BID #85 grams 07/22/24 powder (Athlete's Foot) nystatin 100,000 unit/gram topical 1 appl topical BID #60 grams 09/25/24 powder lactulose 20 gram/30 mL oral 20 g (30 mL) PO DAILY PRN 10/06/24 solution constipation 30 days #900 mL temazepam 15 mg capsule 15 mg PO BEDTIME PRN if awake at 10/06/24 2AM 30 days #30 caps cefuroxime axetil 250 mg tablet 250 mg PO BID #9 tabs 10/07/24 Allergies Allergy/AdvReac Type Severity Reaction Status Date / Time azithromycin [AZITHROMYCIN] Allergy Severe Rash Verified 10/13/24 15:58 Fish Containing Products Allergy Severe Anaphylaxis Verified 10/13/24 15:58 codeine [Codeine] Allergy Intermediate Rash Verified 10/13/24 15:58 Penicillins Allergy Intermediate Rash Verified 10/13/24 15:58 prednisone [Prednisone] Allergy Intermediate Rash Verified 10/13/24 15:58 Sulfa (Sulfonamide Allergy Intermediate Rash Verified 10/13/24 15:58 Antibiotics) [Sulfa (Sulfonamides)] ziprasidone [From Geodon] Allergy Intermediate dysuria, Verified 10/13/24 15:58 rash lithium Allergy Unknown Rash Verified 10/13/24 15:58 Review of Systems 2 Review of Systems: Yes all other systems are reviewed and are negative Constitutional: Constitutional: Denies fatigue, Denies fever(s) and Denies headache(s) ENT: Denies headache(s) Cardiovascular: Cardiovascular: Denies chest pain Gastrointestinal: Gastrointestinal: Denies abdominal pain Neurologic: Denies headache(s) Psychiatric: Psychiatric: Reports suicidal ideation Endocrine: Endocrine: Denies fatigue PMFSH Past Medical History Attestation statement: The following information was validated with the patient. Medical History Asthma Suicidal ideation MDD (major depressive disorder), recurrent episode, severe Chest pain Acute anxiety COVID-19 Full body hives Major depression Dizziness Suicide attempt UTI (urinary tract infection) Acetaminophen overdose COVID History of attempted suicide History of non-suicidal self-harm Hypomagnesemia Suicide attempt Suicide attempt by acetaminophen overdose Acetaminophen overdose Depression Diabetes type 2, controlled Borderline personality disorder PTSD (post-traumatic stress disorder) Overdose GERD (gastroesophageal reflux disease) Mood disorder Hyperlipidemia Bronchitis Social History Social History Household Members: Other Household Members Other:: custodial members Housing: Other Housing Other:: custodial Do you presently have visiting nurse or other home services: No Unable to assess alcohol history related to: Unknown Alcohol intake: never Comment: sitter in room Patient Tobacco Use Status: Current everyday Tobacco user Tobacco use type: Cigarette Cigarette Packs Per Day: 1 Cigarettes Per Day: 20.0 Years Smoked: 10 e-Cigarette/Vaping Use: Never Used Second Hand Smoke Exposure: No Substance Use Type: Caffiene Advance Directives: No Advance Directives Information Provided: No Do you have a plan to hurt others: No Plan service: No Current occupational status: unemployed and disabled Sexual orientation: Straight/Heterosexual Physical Exam 2 Vital Signs: Vital Signs: Last Vital Signs Temp 97.3 F 10/13/24 15:58 Pulse 100 10/13/24 15:58 Resp 16 10/13/24 15:58 BP 153/99 H 10/13/24 15:58 Pulse Ox 96 10/13/24 15:58 O2 Del Method Room Air 10/13/24 15:58 BMI result Body Mass Index 44.8 Const: Other: Alert, pacing around in the hallway, appears older than stated age Orientation/consciousness: patient oriented x3 Resp: Effort & Inspection: normal respiratory effort Cardio: Other: Normal peripheral perfusion Skin: Other: Warm dry no rash Neuro: General: patient oriented x3, gait normal, no focal motor deficits and CN's II-XI intact bilaterally Psych: Other: Cooperative, flat affect, appears to be at her baseline Course Reevaluation(s) Reevaluation #1: Care team assessed the patient and they deemed her appropriate to go home, I am in full agreement Medical Decision Making Medical Decision Making MDM Narrative: 48-year-old female with a history of PTSD, depression, GERD, type 2 diabetes borderline personality disorder, who is well known to the emergency department, presents from her custodial for evaluation of auditory hallucinations and SI. Patient states she has been having auditory hallucinations all day, she made the comment in triage that she ?just wants to ?. Problem: Psychiatric illness History: Per patient I have considered the following differential diagnoses: SI, HI, decompensated psychiatric illness, drug/alcohol intoxication Plan: Screening labs including serum ethanol and U tox were obtained. The patient we will see the care team, in my opinion, the patient is at her baseline, she is chronically suicidal, she does not have a discrete plan for self-harm. She also has hallucinations on a regular basis. I have independently reviewed the following tests: Labs: No leukocytosis, not anemic no electrolyte abnormality ethanol negative drug screen negative Lab Data 10/13/24 16:36 12 16:36 Labs: Lab Results 10/13/24 Range/Units 16:36 WBC 8.0 (4.8-10.8) X10*3/uL RBC 4.22 (4.20-5.50) X10*6/uL Hgb 13.0 (12.0-16.0) g/dl Hct 38.3 (37.0-47.0) % MCV 90.8 (80.0-98.0) fL MCH 30.8 (27.0-33.0) pg MCHC 33.9 (31.0-35.0) g/dl RDW 12.3 (11.0-16.0) % Plt Count 314 (160-400) X10*3/uL MPV 9.2 L (9.4-12.3) fL Immature Gran % (Auto) 0.9 H (0.0-0.4) % Neut % (Auto) 66.4 (45-73) % Lymph % (Auto) 19.1 L (20-40) % [place] % (Auto) 8.2 (2-11) % Eos % (Auto) 4.9 H (0-4) % Baso % (Auto) 0.5 (0-2) % Lymph # (Auto) 1.5 (1.2-4.9) X10*3/uL [place] # (Auto) 0.7 (0.1-1.2) X10*3/uL Eos # (Auto) 0.4 (0.0-0.4) X10*3/uL Baso # (Auto) 0.0 (0.0-0.2) X10*3/uL Abs Immat Gran (auto) 0.07 H (0.00-0.03) X10*3/uL Absolute Neuts (auto) 5.3 (2.0-8.3) x10*3/uL Absolute Nucleated RBC 0.000 (0.0-0.012) X10*3/uL Nucleated RBC % (auto) 0.0 (0.0-0.2) /100WBC Sodium 141 (135-145) mmol/L Potassium 4.1 (3.3-5.1) mmol/L Chloride 108 (96-108) mmol/L Carbon Dioxide 24 (22-29) mmol/L Anion Gap 13 (12-20) BUN 8 L (9-16) mg/dL Creatinine 0.69 (0.5-1.4) mg/dL Estim Creat Clear Calc 110.8 Estimated GFR > 60 Random Glucose 128 H (60-115) mg/dL Calcium 9.3 D (8.4-10.2) mg/dL Total Bilirubin 0.1 (0.0-1.0) mg/dL AST 32 H (5-31) U/L ALT 29 (0-31) U/L Alkaline Phosphatase 152 H (39-117) U/L Total Protein 7.3 (6.5-8.0) g/dL Albumin 4.3 (3.5-5.0) g/dL Beta HCG, Quant < 2 mIU/mL Urine Opiates Screen Not Detected (Not Detect) Ur Buprenorphine Scrn Not Detected (Not Detect) ng/mL Ur Oxycodone Screen Not Detected (Not Detect) ng/mL Urine Methadone Screen Not Detected (Not Detect) ng/mL Urine Fentanyl Screen Not Detected (Not Detect) Ur Barbiturates Screen Not Detected (Not Detect) Ur Phencyclidine Scrn Not Detected (Not Detect) Ur Amphetamines Screen Not Detected (Not Detect) U Benzodiazepines Scrn Not Detected (Not Detect) Urine Cocaine Screen Not Detected (Not Detect) U Marijuana (THC) Screen Not Detected (Not Detect) Ethyl Alcohol < 10 mg/dL Discharge Plan Discharge Clinical Impression: Auditory hallucination, Suicide ideation Patient Disposition: Home, Self-Care Instructions: Hallucinations (ED) Additional Instructions: All of your screening labs including a drug toxicology and alcohol level were obtained, everything is normal. You were seen by the care team who feels it is appropriate for you to return to your custodial, I am in agreement. Continue to follow out with your outpatient providers, use the numerous resources that you have. Follow up with your primary care provider as needed. Prescriptions: No Action ascorbic acid (vitamin C) [Vitamin C] 500 mg Tablet 500 mg PO BID ferrous sulfate 325 mg (65 mg iron) Tablet 325 mg PO BID mirtazapine 15 mg tablet 15 mg PO BEDTIME Trelegy Ellipta 200-62.5-25 mcg blister with device 1 ea inhalation DAILY naproxen 250 mg Tablet 250 mg PO BID PRN (Reason: Pain) famotidine 20 mg tablet 10 mg PO TIDWM temazepam 15 mg Capsule 15 mg PO BEDTIME PRN (Reason: if awake at 2AM) 30 Days Qty: 30 0RF lactulose 20 gram/30 mL solution 20 g PO DAILY PRN (Reason: constipation) 30 Days Qty: 900 0RF cefuroxime axetil 250 mg tablet 250 mg PO BID Qty: 9 0RF fluoxetine 40 mg capsule 80 mg PO DAILY haloperidol 5 mg tablet 5 mg PO TID atorvastatin 10 mg tablet 10 mg PO DAILY clozapine 100 mg tablet 100 mg PO BEDTIME amlodipine 5 mg tablet 5 mg PO DAILY pantoprazole 20 mg tablet,delayed release (DR/EC) 40 mg PO BID lorazepam 0.5 mg tablet 0.5 mg PO BID PRN (Reason: Anxiety) buspirone 10 mg tablet 10 mg PO BID benztropine 1 mg tablet 1 mg PO BID montelukast 10 mg tablet 10 mg PO BEDTIME albuterol sulfate 90 mcg/actuation HFA aerosol inhaler 2 puff inhalation Q6H PRN (Reason: Wheezing) fluphenazine HCl 5 mg tablet 15 mg PO BID prazosin 2 mg capsule 4 mg PO BEDTIME metformin 500 mg tablet 500 mg PO BID miconazole nitrate [Athlete's Foot] 2 % powder 1 appl topical BID Qty: 85 0RF nystatin 100,000 unit/gram powder 1 appl topical BID Qty: 60 0RF Print Language: Chinese
[2024-10-13 17:55] LABS: Alanine Aminotransferase 29 U/L (0-31)
[2024-10-13 19:55] VITALS: BP 153/99; PULSE 100; RESP 16; TEMP 36.3; O2SAT 96
== END 2024-10-13 19:55 | disposition home or self-care (01) ==
PROVIDERS: Physician Assistant Medical; Emergency Provider Emergency Medicine; PCP Nurse Practitioner Family
DX: R44.0 Auditory hallucinations (principal); R45.851 Suicidal ideations; F41.9 Anxiety disorder, unspecified; F39 Unspecified mood [affective] disorder; E11.9 Type 2 diabetes mellitus without complications; E78.5 Hyperlipidemia, unspecified; Z79.899 Other long term (current) drug therapy
CPT/HCPCS: 36415; 80053; 80143; 80179; 80307; 81003; 83690; 84702; 85025; 99283; 99284; S9485

== ENCOUNTER 2024-10-14 21:35 | Emergency (ER) | payer MEDICARE, MEDICAID, SELFPAY ==
--- NOTE | ~2024-10-14 | CT_ITS ---
CLINICAL HISTORY: fall CT cervical spine without contrast Comparison: CT/REG/SR - CT CERVICAL SPINE WO CON - 02/04/22 20:42 EDT Findings: Alignment of the cervical spine is normal. There is no fracture. There is no evidence of significant central canal or neuroforaminal stenosis. Visualized soft tissues of the neck are unremarkable. IMPRESSION: No evidence of cervical spine injury. This document has been electronically signed by: Kiel Dover MD on 10/14/2024 22:50:32
--- NOTE | ~2024-10-14 | CT_ITS ---
CLINICAL HISTORY: fall CT head without contrast Comparison: CT/SR - CT HEAD/BRAIN WO IV CON - 06/12/24 23:00 EDT Findings: There is no acute intracranial hemorrhage. Ventricles are of normal size and shape. No mass effect or midline shift is present. The sanchez-white matter differentiation appears normal. The visualized portions of the orbits, paranasal sinuses, and mastoids are unremarkable. There is an unchanged subcutaneous calcification in the left face. No fractures are identified. IMPRESSION: Unremarkable noncontrast head CT. This document has been electronically signed by: Kiel Dover MD on 10/14/2024 22:51:30
[2024-10-14 21:40] VITALS: BP 110/76; BP 149/82; PULSE 92; PULSE 96; RESP 16; TEMP 36.8; O2SAT 95; O2SAT 96; BMI 43.5
[2024-10-14 21:51] VITALS: BP 149/82; PULSE 93; PULSE 97; RESP 16; TEMP 36.8; O2SAT 96
--- NOTE | 2024-10-14 21:53 | ED.FALL ---
HPI - Fall General Chief Complaint: Fall Stated Complaint: fall, dizziness Time Seen by Provider: 10/14/24 21:49 Source: patient Mode of arrival: ambulatory Limitations: no limitations History of Present Illness ED Provider: HPI Narrative: Patient with PTSD bipolar disorder smoker with history of asthma was seen here yesterday earlier today was at [facility] also, just prior to arrival patient was smoking cigarette outside started coughing passed out and fell says that she hit her head to the ground but was ambulatory at the scene no significant swelling of the head noticed denies any nausea vomiting seizures normal sensorium Related Data Home Medications ?Medication ?Instructions ?Recorded ?Confirmed albuterol sulfate 90 mcg/actuation 2 puff inhalation Q6H PRN Wheezing 06/24/24 10/01/24 aerosol inhaler amlodipine 5 mg tablet 5 mg PO DAILY 06/24/24 10/01/24 atorvastatin 10 mg tablet 10 mg PO DAILY 06/24/24 10/01/24 benztropine 1 mg tablet 1 mg PO BID 06/24/24 10/01/24 buspirone 10 mg tablet 10 mg PO BID 06/24/24 10/01/24 clozapine 100 mg tablet 100 mg PO BEDTIME 06/24/24 10/01/24 fluoxetine 40 mg capsule 80 mg PO DAILY 06/24/24 10/01/24 fluphenazine HCl 5 mg tablet 15 mg PO BID 06/24/24 10/01/24 haloperidol 5 mg tablet 5 mg PO TID 06/24/24 10/01/24 lorazepam 0.5 mg tablet 0.5 mg PO BID PRN Anxiety 06/24/24 10/01/24 montelukast 10 mg tablet 10 mg PO BEDTIME 06/24/24 10/01/24 pantoprazole 20 mg tablet,delayed 40 mg PO BID 06/24/24 10/01/24 release prazosin 2 mg capsule 4 mg PO BEDTIME 06/24/24 10/01/24 metformin 500 mg tablet 500 mg PO BID 07/15/24 10/01/24 ascorbic acid (vitamin C) 500 mg 500 mg PO BID 10/01/24 10/01/24 tablet (Vitamin C) famotidine 20 mg tablet 10 mg PO TIDWM 10/01/24 10/01/24 ferrous sulfate 325 mg (65 mg 325 mg PO BID 10/01/24 10/01/24 iron) tablet fluticasone fur. 200 mcg-umeclid 1 ea inhalation DAILY 10/01/24 10/01/24 62.5 mcg-vilant 25 mcg inhalat.powder (Trelegy Ellipta) mirtazapine 15 mg tablet 15 mg PO BEDTIME 10/01/24 10/01/24 naproxen 250 mg tablet 250 mg PO BID PRN Pain 10/01/24 10/01/24 Previous Rx's ?Medication ?Instructions ?Recorded miconazole nitrate 2 % topical 1 appl topical BID #85 grams 07/22/24 powder (Athlete's Foot) nystatin 100,000 unit/gram topical 1 appl topical BID #60 grams 09/25/24 powder lactulose 20 gram/30 mL oral 20 g (30 mL) PO DAILY PRN 10/06/24 solution constipation 30 days #900 mL temazepam 15 mg capsule 15 mg PO BEDTIME PRN if awake at 10/06/24 2AM 30 days #30 caps cefuroxime axetil 250 mg tablet 250 mg PO BID #9 tabs 10/07/24 Allergies Allergy/AdvReac Type Severity Reaction Status Date / Time azithromycin [AZITHROMYCIN] Allergy Severe Rash Verified 10/14/24 21:51 Fish Containing Products Allergy Severe Anaphylaxis Verified 10/14/24 21:51 codeine [Codeine] Allergy Intermediate Rash Verified 10/14/24 21:51 Penicillins Allergy Intermediate Rash Verified 10/14/24 21:51 prednisone [Prednisone] Allergy Intermediate Rash Verified 10/14/24 21:51 Sulfa (Sulfonamide Allergy Intermediate Rash Verified 10/14/24 21:51 Antibiotics) [Sulfa (Sulfonamides)] ziprasidone [From Geodon] Allergy Intermediate dysuria, Verified 10/14/24 21:51 rash lithium Allergy Unknown Rash Verified 10/14/24 21:51 Review of Systems Review of Systems: Yes all other systems are reviewed and are negative PMFSH Past Medical History Medical History Asthma Suicidal ideation MDD (major depressive disorder), recurrent episode, severe Chest pain Acute anxiety COVID-19 Full body hives Major depression Dizziness Suicide attempt UTI (urinary tract infection) Acetaminophen overdose COVID History of attempted suicide History of non-suicidal self-harm Hypomagnesemia Suicide attempt Suicide attempt by acetaminophen overdose Acetaminophen overdose Depression Diabetes type 2, controlled Borderline personality disorder PTSD (post-traumatic stress disorder) Overdose GERD (gastroesophageal reflux disease) Mood disorder Hyperlipidemia Bronchitis Social History Social History Household Members: Other Household Members Other:: skilled nursing members Housing: Other Housing Other:: skilled nursing Do you presently have visiting nurse or other home services: No Unable to assess alcohol history related to: Unknown Alcohol intake: never Comment: sitter in room Patient Tobacco Use Status: Current everyday Tobacco user Tobacco use type: Cigarette Cigarette Packs Per Day: 1 Cigarettes Per Day: 20.0 Years Smoked: 10 Smoked in Last 30 Days: Yes e-Cigarette/Vaping Use: Never Used Second Hand Smoke Exposure: No Use of substances other than those prescribed or required for medical reasons: No Substance Use Type: Caffiene Advance Directives: No Advance Directives Information Provided: No Do you have a plan to hurt others: No Plan Patient : No service: No Current occupational status: unemployed and disabled Sexual orientation: Straight/Heterosexual Physical Exam Vital Signs: Vital Signs: Last Vital Signs Temp 98.3 F 10/14/24 21:51 Pulse 93 10/14/24 21:51 Resp 16 10/14/24 21:51 BP 149/82 H 10/14/24 21:51 Pulse Ox 96 10/14/24 21:51 O2 Del Method Room Air 10/14/24 21:51 BMI result Body Mass Index 43.5 Appearance: Alert. Oriented X3. No acute distress. Obese Eyes: PERRLA, No Nystagmus ENT: Pharynx normal. Oral Mucosa moist Neck: Normal inspection. Neck supple. No midline tenderness CVS: Normal heart rate and rhythm. Pulses normal. Respiratory: No respiratory distress. Equal air entry bilateral, no wheezing/rales/rhonchi Abdomen: Soft and nontender. Bowel sounds are present, no mass palpable, no CVA tenderness Skin: Skin warm and dry. Normal skin color. Normal skin turgor. Extremities: No lower extremity edema. No calf tenderness Neuro: Oriented X 3. No motor deficit. No sensory deficit.No cerebellar signs , cranial nerves II-XII intact Medical Decision Making Medical Decision Making MDM Narrative: Patient with minor fall CT scan of the head and C-spine negative will discharge patient home asymptomatic at this time during stay in the ER Independent Interpretation I performed an independent interpretation of an: CT Scan Radiology Impression Discussion of test interpretation with radiology: I have reviewed the radiologist's reading. Radiologist Impression: NAD Discharge Plan Discharge Clinical Impression: Minor closed head injury Patient Disposition: Home, Self-Care Instructions: Head Injury (ED) Additional Instructions: Your CT scan is negative for acute Apply ice pack for pain Prescriptions: No Action ascorbic acid (vitamin C) [Vitamin C] 500 mg Tablet 500 mg PO BID ferrous sulfate 325 mg (65 mg iron) Tablet 325 mg PO BID mirtazapine 15 mg tablet 15 mg PO BEDTIME Trelegy Ellipta 200-62.5-25 mcg blister with device 1 ea inhalation DAILY naproxen 250 mg Tablet 250 mg PO BID PRN (Reason: Pain) famotidine 20 mg tablet 10 mg PO TIDWM temazepam 15 mg Capsule 15 mg PO BEDTIME PRN (Reason: if awake at 2AM) 30 Days Qty: 30 0RF lactulose 20 gram/30 mL solution 20 g PO DAILY PRN (Reason: constipation) 30 Days Qty: 900 0RF cefuroxime axetil 250 mg tablet 250 mg PO BID Qty: 9 0RF fluoxetine 40 mg capsule 80 mg PO DAILY haloperidol 5 mg tablet 5 mg PO TID atorvastatin 10 mg tablet 10 mg PO DAILY clozapine 100 mg tablet 100 mg PO BEDTIME amlodipine 5 mg tablet 5 mg PO DAILY pantoprazole 20 mg tablet,delayed release (DR/EC) 40 mg PO BID lorazepam 0.5 mg tablet 0.5 mg PO BID PRN (Reason: Anxiety) buspirone 10 mg tablet 10 mg PO BID benztropine 1 mg tablet 1 mg PO BID montelukast 10 mg tablet 10 mg PO BEDTIME albuterol sulfate 90 mcg/actuation HFA aerosol inhaler 2 puff inhalation Q6H PRN (Reason: Wheezing) fluphenazine HCl 5 mg tablet 15 mg PO BID prazosin 2 mg capsule 4 mg PO BEDTIME metformin 500 mg tablet 500 mg PO BID miconazole nitrate [Athlete's Foot] 2 % powder 1 appl topical BID Qty: 85 0RF nystatin 100,000 unit/gram powder 1 appl topical BID Qty: 60 0RF Print Language: Turkmen
[2024-10-15 01:55] VITALS: BP 133/87; PULSE 97; RESP 18; TEMP 37.2; O2SAT 95
[2024-10-15 02:05] VITALS: BP 133/87; PULSE 97; RESP 18; TEMP 37.2; O2SAT 95
== END 2024-10-15 02:09 | disposition home or self-care (01) ==
PROVIDERS: Emergency Provider Internal Medicine; PCP Nurse Practitioner Family
DX: S09.90XA Unspecified injury of head, initial encounter (principal); R51.9 Headache, unspecified; M54.2 Cervicalgia; F17.210 Nicotine dependence, cigarettes, uncomplicated; W19.XXXA Unspecified fall, initial encounter; Y93.89 Activity, other specified; Y92.89 Other specified places as the place of occurrence of the external cause; Y99.8 Other external cause status; Z79.899 Other long term (current) drug therapy
CPT/HCPCS: 70450; 72125; 99284

== ENCOUNTER → 2024-10-14 21:58 | Outpatient (BNV) | payer MEDICARE, MEDICAID, SELFPAY | PROVIDERS: Emergency Provider Internal Medicine; PCP Nurse Practitioner Family; Visit Provider Radiology Diagnostic Radiology | DX: R42 Dizziness and giddiness (principal); W19.XXXA Unspecified fall, initial encounter | CPT/HCPCS: 70450; 72125 ==

== ENCOUNTER → 2024-10-20 18:42 | Outpatient (BNV) | payer MEDICARE, MEDICAID, SELFPAY | PROVIDERS: Emergency Provider Emergency Medicine; PCP Nurse Practitioner Family; Visit Provider Internal Medicine | DX: R07.9 Chest pain, unspecified (principal) | CPT/HCPCS: 93010 ==

== ENCOUNTER 2024-10-25 21:10 | Emergency (ER) | payer MEDICARE, MEDICAID, SELFPAY ==
[2024-10-25 21:18] VITALS: BP 148/100; PULSE 120; RESP 20; TEMP 36.9; O2SAT 94; BMI 35.2
[2024-10-25 21:48] LABS: Appearance Urine Clear; Color Urine Yellow; Glucose Urine UA Negative (Negative); Leukocyte Esterase Urine Negative (Negative); Nitrite Urine Negative (Negative); PH 5.5 (5.0-9.0); Specific Gravity - Urine <= 1.005 (1.005-1.025); Urine Blood Negative (Negative); Urine Ketones Negative (Negative); Urine Protein Negative (Neg-Trace)
[2024-10-25 21:49] LABS: UPreg QC Valid YES; Urine Pregnancy NEGATIVE (NEGATIVE)
[2024-10-25 21:56] LABS: Amphetamine Screen Urine Not Detected (Not Detect); Barbiturates, Urine Not Detected (Not Detect); Benzodiazepines Screen Urine Not Detected (Not Detect); Buprenorphine Scr Not Detected (Not Detect); Cannabinoid Screen Urine Not Detected (Not Detect); Cocaine Screen Urine Not Detected (Not Detect); Fentanyl, urine Not Detected (Not Detect); Methadone Screen, Urine Not Detected (Not Detect); Opiate Screen Urine Not Detected (Not Detect); Oxycodone Screen Urine Not Detected (Not Detect); Phencyclidine Screen Urine Not Detected (Not Detect)
[2024-10-25 22:31] LABS: Hematocrit 34.7 % (37.0-47.0); Hemoglobin 11.9 g/dl (12.0-16.0); Mean Corpuscular HGB Conc 34.3 g/dl (31.0-35.0); Mean Corpuscular Hemoglobin 30.7 pg (27.0-33.0); Mean Corpuscular Volume 89.7 fL (80.0-98.0); Mean Platelet Volume 9.1 fL (9.4-12.3); Platelet Count 269 X10*3/uL (160-400); Red Blood Count 3.87 X10*6/uL (4.20-5.50); Red Cell Distribution Width 12.5 % (11.0-16.0); White Blood Count 7.6 X10*3/uL (4.8-10.8)
[2024-10-25 22:46] LABS: Alanine Aminotransferase 24 U/L (0-31); Alkaline Phosphatase 140 U/L (39-117); Anion Gap 12 (12-20); Aspartate Amino Transferase 22 U/L (5-31); Bilirubin Total 0.2 mg/dL (0.0-1.0); Blood Urea Nitrogen 7 mg/dL (9-16); Calcium 8.8 mg/dL (8.4-10.2); Carbon Dioxide 23 mmol/L (22-29); Chloride 107 mmol/L (96-108); Creatinine Clr Calc Pharmacy 99.5; Estimated Glomerular Filt Rate > 60; Ethanol < 10 mg/dL; Glucose Random 195 mg/dL (60-115); Potassium 3.5 mmol/L (3.3-5.1); Sodium 138 mmol/L (135-145); Total Protein 6.5 g/dL (6.5-8.0)
--- NOTE | 2024-10-26 00:40 | ED.PSYCH ---
HPI - Psych General Chief Complaint: Psychiatric Symptoms Stated Complaint: hwaring voice Time Seen by Provider: 10/25/24 22:19 Source: patient and EMS Mode of arrival: EMS Limitations: no limitations History of Present Illness ED Provider: Dr. Eileen Ryan HPI Narrative: Patient comes to the emergency room complaining of auditory hallucinations telling her to hurt herself. Patient has had multiple ED visits for the same complaint. Patient denies hurting herself prior to arrival. Patient denies SI or HI Related Data Home Medications ?Medication ?Instructions ?Recorded ?Confirmed albuterol sulfate 90 mcg/actuation 2 puff inhalation Q6H PRN Wheezing 06/24/24 10/25/24 aerosol inhaler amlodipine 5 mg tablet 5 mg PO DAILY 06/24/24 10/25/24 atorvastatin 10 mg tablet 10 mg PO DAILY 06/24/24 10/25/24 buspirone 10 mg tablet 10 mg PO BID 06/24/24 10/25/24 clozapine 100 mg tablet 100 mg PO BEDTIME 06/24/24 10/25/24 fluoxetine 40 mg capsule 80 mg PO DAILY 06/24/24 10/25/24 fluphenazine HCl 5 mg tablet 15 mg PO BID 06/24/24 10/25/24 haloperidol 5 mg tablet 5 mg PO TID 06/24/24 10/25/24 lorazepam 0.5 mg tablet 0.5 mg PO BID PRN Anxiety 06/24/24 10/25/24 montelukast 10 mg tablet 10 mg PO BEDTIME 06/24/24 10/25/24 pantoprazole 20 mg tablet,delayed 40 mg PO BID 06/24/24 10/25/24 release prazosin 2 mg capsule 4 mg PO BEDTIME 06/24/24 10/25/24 metformin 500 mg tablet 500 mg PO BID 07/15/24 10/25/24 ascorbic acid (vitamin C) 500 mg 500 mg PO BID 10/01/24 10/25/24 tablet (Vitamin C) famotidine 20 mg tablet 10 mg PO TIDWM 10/01/24 10/25/24 ferrous sulfate 325 mg (65 mg 325 mg PO BID 10/01/24 10/25/24 iron) tablet fluticasone fur. 200 mcg-umeclid 1 ea inhalation DAILY 10/01/24 10/25/24 62.5 mcg-vilant 25 mcg inhalat.powder (Trelegy Ellipta) mirtazapine 15 mg tablet 15 mg PO BEDTIME 10/01/24 10/25/24 naproxen 250 mg tablet 250 mg PO BID PRN Pain 10/01/24 10/25/24 Previous Rx's ?Medication ?Instructions ?Recorded nystatin 100,000 unit/gram topical 1 appl topical BID #60 grams 09/25/24 powder lactulose 20 gram/30 mL oral 20 g (30 mL) PO DAILY PRN 10/06/24 solution constipation 30 days #900 mL temazepam 15 mg capsule 15 mg PO BEDTIME PRN if awake at 10/06/24 2AM 30 days #30 caps Allergies Allergy/AdvReac Type Severity Reaction Status Date / Time azithromycin [AZITHROMYCIN] Allergy Severe Rash Verified 10/25/24 21:19 Fish Containing Products Allergy Severe Anaphylaxis Verified 10/25/24 21:19 codeine [Codeine] Allergy Intermediate Rash Verified 10/25/24 21:19 Penicillins Allergy Intermediate Rash Verified 10/25/24 21:19 prednisone [Prednisone] Allergy Intermediate Rash Verified 10/25/24 21:19 Sulfa (Sulfonamide Allergy Intermediate Rash Verified 10/25/24 21:19 Antibiotics) [Sulfa (Sulfonamides)] ziprasidone [From Geodon] Allergy Intermediate dysuria, Verified 10/25/24 21:19 rash lithium Allergy Unknown Rash Verified 10/25/24 21:19 Review of Systems Review of Systems: Constitutional : No Weight loss, No Fever, No Chills, No Night Sweats, No Fatigue, No Malaise ENT/Mouth : No Hearing loss, No Ear Pain, No Nasal Congestion, No Sinus Pain, No Hoarseness, No sore throat, No Rhinorrhea, No Swallowing Difficulty Eyes: No Eye Pain, No Swelling, No Redness, No Foreign Body, No Discharge, No Vision Changes Cardiovascular : No Chest Pain, No SOB, No Dyspnea on Exertion, No Orthopnea, No Edema, No Palpitations Respiratory : No Cough, No Sputum, No Wheezing, No Smoke Exposure, No Dyspnea Gastrointestinal : No Nausea, No Vomiting, No Diarrhea, No Constipation, No abdominal Pain, No Hematochezia, No Melena Genitourinary : no irregular bleeding, No Dysuria, No Urinary Frequency, No Hematuria, No Urinary Incontinence, No Urgency, No Flank Pain, No Urinary Flow Changes, No Hesitancy Musculoskeletal : No joint pain, No Myalgias, No Joint Swelling Skin : No Skin Lesions, No rash Neuro : No Weakness, No Numbness, No Paresthesias, No Loss of Consciousness, No Dizziness, No Headache Psych : Complaining of auditory hallucinations, denies SI or HI Heme/Lymph: No Bruising, No Bleeding,No Lymphadenopathy Endocrine : No Polyuria, No Polydipsia, No Temperature Intolerance PMFSH Past Medical History Medical History Asthma Suicidal ideation MDD (major depressive disorder), recurrent episode, severe Chest pain Acute anxiety COVID-19 Full body hives Major depression Dizziness Suicide attempt UTI (urinary tract infection) Acetaminophen overdose COVID History of attempted suicide History of non-suicidal self-harm Hypomagnesemia Suicide attempt Suicide attempt by acetaminophen overdose Acetaminophen overdose Depression Diabetes type 2, controlled Borderline personality disorder PTSD (post-traumatic stress disorder) Overdose GERD (gastroesophageal reflux disease) Mood disorder Hyperlipidemia Bronchitis Social History Social History Household Members: Other Household Members Other:: care home members Housing: Other Housing Other:: care home Do you presently have visiting nurse or other home services: No Unable to assess alcohol history related to: Unknown Alcohol intake: never Comment: sitter in room Patient Tobacco Use Status: Current everyday Tobacco user Tobacco use type: Cigarette Cigarette Packs Per Day: 1 Cigarettes Per Day: 20.0 Years Smoked: 10 e-Cigarette/Vaping Use: Never Used Second Hand Smoke Exposure: No Substance Use Type: Caffiene Advance Directives: No Advance Directives Information Provided: No service: No Current occupational status: unemployed and disabled Sexual orientation: Straight/Heterosexual Physical Exam Vital Signs: Vital Signs: Last Vital Signs Temp 98.4 F 10/25/24 21:18 Pulse 120 H 10/25/24 21:18 Resp 20 10/25/24 21:18 BP 148/100 H 10/25/24 21:18 Pulse Ox 94 10/25/24 21:18 O2 Del Method Room Air 10/25/24 21:18 BMI result Body Mass Index 35.2 Const: Other: Appearance: Alert. Oriented X3. No acute distress. Eyes: Pupils equal, round and reactive to light. ENT: Pharynx normal. Neck: Normal inspection. Neck supple. No lymph nodes noted. No crepitus CVS: Normal heart rate and rhythm. Pulses normal. Normal S1 and S2 Respiratory: No respiratory distress. Breath sounds normal. No Wheezing. No rales Abdomen: Soft and nontender. No rigidity. No distention. Skin: Skin warm and dry. Normal skin color. Normal skin turgor. Extremities: No lower extremity edema. No Lacerations. No Rash Neuro: Oriented X 3. No motor deficit. No sensory deficit. Moving all extremities. No slurred speech. CN 2 through 12 grossly intact Psych: calm, cooperative, normal affect Medical Decision Making Medical Decision Making [facility] Narrative: My interpretation of labs: Patient's hematology and chemistry at baseline. Urine analysis negative for UTI, negative test, urine toxicology negative for alcohol and drugs of abuse Care team consult pending Physician observation started at 00:50 Differential Diagnosis Differential Diagnoses: The differential diagnosis associated with the presentation includes (Chronic anxiety, depression) Lab Data [facility] Lab Attestation statement: I reviewed the patient's lab results. 10/25/24 22:25 10/25/24 22:25 Labs: Lab Results 10/25/24 10/25/24 Range/Units 21:26 22:25 WBC 7.6 (4.8-10.8) X10*3/uL RBC 3.87 L (4.20-5.50) X10*6/uL Hgb 11.9 L (12.0-16.0) g/dl Hct 34.7 L (37.0-47.0) % MCV 89.7 (80.0-98.0) fL MCH 30.7 (27.0-33.0) pg MCHC 34.3 (31.0-35.0) g/dl RDW 12.5 (11.0-16.0) % Plt Count 269 (160-400) X10*3/uL MPV 9.1 L (9.4-12.3) fL Absolute Nucleated RBC 0.000 (0.0-0.012) X10*3/uL Nucleated RBC % (auto) 0.0 (0.0-0.2) /100WBC Sodium 138 (135-145) mmol/L Potassium 3.5 (3.3-5.1) mmol/L Chloride 107 (96-108) mmol/L Carbon Dioxide 23 (22-29) mmol/L Anion Gap 12 (12-20) BUN 7 L (9-16) mg/dL Creatinine 0.78 (0.5-1.4) mg/dL Estim Creat Clear Calc 99.5 Estimated GFR > 60 Random Glucose 195 H (60-115) mg/dL Calcium 8.8 (8.4-10.2) mg/dL Total Bilirubin 0.2 (0.0-1.0) mg/dL AST 22 (5-31) U/L ALT 24 (0-31) U/L Alkaline Phosphatase 140 H (39-117) U/L Total Protein 6.5 (6.5-8.0) g/dL Albumin 4.0 (3.5-5.0) g/dL Urine Color Yellow Urine Appearance Clear Urine pH 5.5 (5.0-9.0) Ur Specific [place] <= 1.005 (1.005-1.025) Urine Protein Negative (Neg-Trace) mg/dL Urine Glucose (UA) Negative (Negative) mg/dL Urine Ketones Negative (Negative) mg/dL Urine Blood Negative (Negative) Urine Nitrite Negative (Negative) Ur Leukocyte Esterase Negative (Negative) Urine Test NEGATIVE (NEGATIVE) Urine Opiates Screen Not Detected (Not Detect) Ur Buprenorphine Scrn Not Detected (Not Detect) ng/mL Ur Oxycodone Screen Not Detected (Not Detect) ng/mL Urine Methadone Screen Not Detected (Not Detect) ng/mL Urine Fentanyl Screen Not Detected (Not Detect) Ur Barbiturates Screen Not Detected (Not Detect) Ur Phencyclidine Scrn Not Detected (Not Detect) Ur Amphetamines Screen Not Detected (Not Detect) U Benzodiazepines Scrn Not Detected (Not Detect) Urine Cocaine Screen Not Detected (Not Detect) U Marijuana (THC) Screen Not Detected (Not Detect) Ethyl Alcohol < 10 mg/dL Critical Care Time Critical Care Time Critical Care Time: Yes Total Critical Care Time: 35 Attestation: I have personally provided critical care time. Time includes review of lab data, radiology results, discussion with consultants, and monitoring for potential decompensation. Intervention performed as documented. Discharge Plan Discharge Clinical Impression: Auditory hallucinations Prescriptions: No Action ascorbic acid (vitamin C) [Vitamin C] 500 mg Tablet 500 mg PO BID ferrous sulfate 325 mg (65 mg iron) Tablet 325 mg PO BID mirtazapine 15 mg tablet 15 mg PO BEDTIME Trelegy Ellipta 200-62.5-25 mcg blister with device 1 ea inhalation DAILY naproxen 250 mg Tablet 250 mg PO BID PRN (Reason: Pain) famotidine 20 mg tablet 10 mg PO TIDWM temazepam 15 mg Capsule 15 mg PO BEDTIME PRN (Reason: if awake at 2AM) 30 Days Qty: 30 0RF lactulose 20 gram/30 mL solution 20 g PO DAILY PRN (Reason: constipation) 30 Days Qty: 900 0RF fluoxetine 40 mg capsule 80 mg PO DAILY haloperidol 5 mg tablet 5 mg PO TID atorvastatin 10 mg tablet 10 mg PO DAILY clozapine 100 mg tablet 100 mg PO BEDTIME amlodipine 5 mg tablet 5 mg PO DAILY pantoprazole 20 mg tablet,delayed release (DR/EC) 40 mg PO BID lorazepam 0.5 mg tablet 0.5 mg PO BID PRN (Reason: Anxiety) buspirone 10 mg tablet 10 mg PO BID montelukast 10 mg tablet 10 mg PO BEDTIME albuterol sulfate 90 mcg/actuation HFA aerosol inhaler 2 puff inhalation Q6H PRN (Reason: Wheezing) fluphenazine HCl 5 mg tablet 15 mg PO BID prazosin 2 mg capsule 4 mg PO BEDTIME metformin 500 mg tablet 500 mg PO BID nystatin 100,000 unit/gram powder 1 appl topical BID Qty: 60 0RF Interventions: [place]-Suicide Risk Severity Scale Last Done: 10/25/24 21:20 Print Language: Telugu
[2024-10-26 05:22] VITALS: BP 122/99; PULSE 118; RESP 18; TEMP 36.6; O2SAT 96
--- NOTE | 2024-10-26 07:24 | PC.NURSE ---
Assumed care of patient at 0645, patient appears to be sleeping at this time, no apparent distress noted, respirations even and unlabored. Continue plan of care for CARE team follow up this am
--- NOTE | 2024-10-26 08:44 | PHA.MEDREC ---
Pharmacy Consult ? Medication Reconciliation Pharmacy has reviewed the medication reconciliation completed by nursing, utilized claims and discharge packet from 10/24/24.
[2024-10-26] MEDS: busPIRone HCl 10 MG TABLET PO (09:20)
[2024-10-26] MEDS: Ferrous Sulfate 324 MG TABLET.DR PO (09:21)
[2024-10-26] MEDS: FLUoxetine HCl 20 MG CAPSULE 80 MG PO (09:21)
[2024-10-26] MEDS: Ascorbic Acid 500 MG TABLET PO (09:21)
[2024-10-26] MEDS: HaloperidoL 5 MG TABLET PO (09:21)
[2024-10-26] MEDS: Nystatin Powder 15 GM BOTTLE 1 APPL TOPICAL (09:21)
[2024-10-26] MEDS: amLODIPine Besylate 5 MG TABLET PO (09:21)
[2024-10-26] MEDS: metFORMIN HCl 500 MG TABLET PO (09:21)
[2024-10-26] MEDS: Atorvastatin Calcium 10 MG TABLET PO (09:21)
[2024-10-26 10:40] VITALS: BP 136/99; PULSE 97; RESP 16; TEMP 36.8; O2SAT 96
== END 2024-10-26 10:41 | disposition home or self-care (01) ==
PROVIDERS: Emergency Provider Emergency Medicine; PCP Nurse Practitioner Family
DX: R44.0 Auditory hallucinations (principal); E11.9 Type 2 diabetes mellitus without complications; F33.2 Major depressive disorder, recurrent severe without psychotic features; F60.3 Borderline personality disorder; F17.210 Nicotine dependence, cigarettes, uncomplicated; Z91.52 Personal history of nonsuicidal self-harm; Z91.51 Personal history of suicidal behavior; F43.10 Post-traumatic stress disorder, unspecified; Z79.02 Long term (current) use of antithrombotics/antiplatelets; Z79.899 Other long term (current) drug therapy; Z79.84 Long term (current) use of oral hypoglycemic drugs
CPT/HCPCS: 36415; 80053; 80307; 81003; 81025; 85027; 99284; 99285

== ENCOUNTER 2024-10-28 11:15 | Outpatient (REF) | payer MEDICARE, MEDICAID, SELFPAY ==
[2024-10-28 11:35] LABS: MANUAL DIFF FLAG NO
[2024-10-28 12:06] LABS: Basophils Percent Auto 0.4 % (0-2); Eosinophils Absolute Auto 0.4 X10*3/uL (0.0-0.4); Eosinophils Percent Auto 5.2 % (0-4); Hematocrit 37.8 % (37.0-47.0); Hemoglobin 12.7 g/dl (12.0-16.0); Imm Gran Abs Auto 0.12 X10*3/uL (0.00-0.03); Imm Gran Pct Auto 1.8 % (0.0-0.4); Lymphocytes Absolute Auto 1.4 X10*3/uL (1.2-4.9); Lymphocytes Percent Auto 20.1 % (20-40); Mean Corpuscular HGB Conc 33.6 g/dl (31.0-35.0); Mean Corpuscular Hemoglobin 30.8 pg (27.0-33.0); Mean Corpuscular Volume 91.7 fL (80.0-98.0); Mean Platelet Volume 9.5 fL (9.4-12.3); Monocytes Absolute Auto 0.6 X10*3/uL (0.1-1.2); Monocytes Percent Auto 8.3 % (2-11); Neut%MD 64.2 %; Neutrophils Absolute Auto 4.3 x10*3/uL (2.0-8.3); Neutrophils Percent Auto 64.2 % (45-73); Platelet Count 276 X10*3/uL (160-400); Red Blood Count 4.12 X10*6/uL (4.20-5.50); Red Cell Distribution Width 12.6 % (11.0-16.0); WBCANC 6.7 X10*3/uL; White Blood Count 6.7 X10*3/uL (4.8-10.8)
== END 2024-10-28 11:16 | disposition home or self-care (01) ==
LOC: HO.LABR 11:15
PROVIDERS: PCP Nurse Practitioner Family; Visit Provider Psychiatry & Neurology Psychiatry
DX: Z79.899 Other long term (current) drug therapy (principal)
CPT/HCPCS: 36415; 85025

== ENCOUNTER 2024-11-01 22:49 | Emergency (ER) | payer MEDICARE, MEDICAID, SELFPAY ==
[2024-11-01 22:55] VITALS: BP 136/72; PULSE 122; O2SAT 96
--- NOTE | 2024-11-01 22:58 | ECG_ITS ---
Test Reason : CHEST PAIN Blood Pressure : */* mmHG Vent. Rate : 116 BPM Atrial Rate : 116 BPM P-R Int : 156 ms QRS Dur : 80 ms QT Int : 344 ms P-R-T Axes : 68 61 66 degrees QTcB Int : 478 ms Sinus tachycardia Otherwise normal ECG When compared with ECG of 20-Oct-2024 18:42, No significant change was found Referred By: Eileen Ryan Electronically Signed By: Fabricio Kay
--- NOTE | 2024-11-01 22:59 | ED_ITS ---
HPI - Psych General Chief Complaint: Psychiatric Symptoms Stated Complaint: SI , NEGATIVE HI Time Seen by Provider: 11/01/24 22:53 Source: patient and EMS Mode of arrival: EMS Limitations: no limitations History of Present Illness ED Provider: Dr. Eileen Ryan HPI Narrative: Patient comes to the emergency room complaining of left-sided chest pain and complaining of hearing voices telling her to cut herself. Patient states that she started riding down wanted she hears. Patient brought in a small sheet of paper, where she rode her thoughts. Patient denies hurting herself prior to ar rival. Patient denies any coughing, no URI symptoms. No chest trauma Related Data Home Medications ?Medication ?Instructions ?Recorded ?Confirmed albuterol sulfate 90 mcg/actuation 2 puff inhalation Q6H PRN Wheezing 06/24/24 10/25/24 aerosol inhaler amlodipine 5 mg tablet 5 mg PO DAILY 06/24/24 10/25/24 atorvastatin 10 mg tablet 10 mg PO DAILY 06/24/24 10/25/24 buspirone 10 mg tablet 10 mg PO BID 06/24/24 10/25/24 clozapine 100 mg tablet 100 mg PO BEDTIME 06/24/24 10/25/24 fluoxetine 40 mg capsule 80 mg PO DAILY 06/24/24 10/25/24 fluphenazine HCl 5 mg tablet 15 mg PO BID 06/24/24 10/25/24 haloperidol 5 mg tablet 5 mg PO TID 06/24/24 10/25/24 lorazepam 0.5 mg tablet 0.5 mg PO BID PRN Anxiety 06/24/24 10/25/24 montelukast 10 mg tablet 10 mg PO BEDTIME 06/24/24 10/25/24 pantoprazole 20 mg tablet,delayed 40 mg PO BID 06/24/24 10/25/24 release prazosin 2 mg capsule 4 mg PO BEDTIME 06/24/24 10/25/24 metformin 500 mg tablet 500 mg PO BID 07/15/24 10/25/24 ascorbic acid (vitamin C) 500 mg 500 mg PO BID 10/01/24 10/25/24 tablet (Vitamin C) famotidine 20 mg tablet 10 mg PO TIDWM 10/01/24 10/25/24 ferrous sulfate 325 mg (65 mg 325 mg PO BID 10/01/24 10/25/24 iron) tablet fluticasone fur. 200 mcg-umeclid 1 ea inhalation DAILY 10/01/24 10/25/24 62.5 mcg-vilant 25 mcg inhalat.powder (Trelegy Ellipta) mirtazapine 15 mg tablet 15 mg PO BEDTIME 10/01/24 10/25/24 naproxen 250 mg tablet 250 mg PO BID PRN Pain 10/01/24 10/25/24 Previous Rx's ?Medication ?Instructions ?Recorded nystatin 100,000 unit/gram topical 1 appl topical BID #60 grams 09/25/24 powder lactulose 20 gram/30 mL oral 20 g (30 mL) PO DAILY PRN 10/06/24 solution constipation 30 days #900 mL temazepam 15 mg capsule 15 mg PO BEDTIME PRN if awake at 10/06/24 2AM 30 days #30 caps Allergies Allergy/AdvReac Type Severity Reaction Status Date / Time azithromycin [AZITHROMYCIN] Allergy Severe Rash Verified 11/01/24 23:06 Fish Containing Products Allergy Severe Anaphylaxis Verified 11/01/24 23:06 codeine [Codeine] Allergy Intermediate Rash Verified 11/01/24 23:06 Penicillins Allergy Intermediate Rash Verified 11/01/24 23:06 prednisone [Prednisone] Allergy Intermediate Rash Verified 11/01/24 23:06 Sulfa (Sulfonamide Allergy Intermediate Rash Verified 11/01/24 23:06 Antibiotics) [Sulfa (Sulfonamides)] ziprasidone [From Geodon] Allergy Intermediate dysuria, Verified 11/01/24 23:06 rash lithium Allergy Unknown Rash Verified 11/01/24 23:06 Review of Systems Review of Systems: Constitutional : No Weight loss, No Fever, No Chills, No Night Sweats, No Fatigue, No Malaise ENT/Mouth : No Hearing loss, No Ear Pain, No Nasal Congestion, No Sinus Pain, No Hoarseness, No sore throat, No Rhinorrhea, No Swallowing Difficulty Eyes: No Eye Pain, No Swelling, No Redness, No Foreign Body, No Discharge, No Vision Changes Cardiovascular : Complaining of 2 days of Chest Pain, No SOB, No Dyspnea on Exertion, No Orthopnea, No Edema, No Palpitations Respiratory : No Cough, No Sputum, No Wheezing, No Smoke Exposure, No Dyspnea Gastrointestinal : No Nausea, No Vomiting, No Diarrhea, No Constipation, No abdominal Pain, No Hematochezia, No Melena Genitourinary : no irregular bleeding, No Dysuria, No Urinary Frequency, No Hematuria, No Urinary Incontinence, No Urgency, No Flank Pain, No Urinary Flow Changes, No Hesitancy Musculoskeletal : No joint pain, No Myalgias, No Joint Swelling Skin : No Skin Lesions, No rash Neuro : No Weakness, No Numbness, No Paresthesias, No Loss of Consciousness, No Dizziness, No Headache Psych : Complaining of anxiety, complaining of hearing voices telling her to cut herself, denies HI Heme/Lymph: No Bruising, No Bleeding,No Lymphadenopathy Endocrine : No Polyuria, No Polydipsia, No Temperature Intolerance PMFSH Past Medical History Medical History Asthma Suicidal ideation MDD (major depressive disorder), recurrent episode, severe Chest pain Acute anxiety COVID-19 Full body hives Major depression Dizziness Suicide attempt UTI (urinary tract infection) Acetaminophen overdose COVID History of attempted suicide History of non-suicidal self-harm Hypomagnesemia Suicide attempt Suicide attempt by acetaminophen overdose Acetaminophen overdose Depression Diabetes type 2, controlled Borderline personality disorder PTSD (post-traumatic stress disorder) Overdose GERD (gastroesophageal reflux disease) Mood disorder Hyperlipidemia Bronchitis Social History Social History Household Members: Other Household Members Other:: long-term members Housing: Other Housing Other:: long-term Do you presently have visiting nurse or other home services: No Unable to assess alcohol history related to: Unknown Alcohol intake: never Comment: sitter in room Patient Tobacco Use Status: Current everyday Tobacco user Tobacco use type: Cigarette Cigarette Packs Per Day: 1 Cigarettes Per Day: 20.0 Years Smoked: 10 e-Cigarette/Vaping Use: Never Used Second Hand Smoke Exposure: No Substance Use Type: Caffiene Advance Directives: No Advance Directives Information Provided: No Do you have a plan to hurt others: No Plan service: No Current occupational status: unemployed and disabled Sexual orientation: Straight/Heterosexual Physical Exam Vital Signs: Vital Signs: Last Vital Signs Temp 98.0 F 11/01/24 23:06 Pulse 134 H 11/01/24 23:06 Resp 20 11/01/24 23:06 BP 151/71 H 11/01/24 23:06 Pulse Ox 96 11/01/24 23:06 O2 Del Method Room Air 11/01/24 23:06 BMI result Body Mass Index 44.1 Const: Other: Appearance: Alert. Oriented X3. No acute distress. Eyes: Pupils equal, round and reactive to light. ENT: Pharynx normal. Neck: Normal inspection. Neck supple. No lymph nodes noted. No crepitus CVS: Normal heart rate and rhythm. Pulses normal. Normal S1 and S2 Respiratory: No respiratory distress. Breath sounds normal. No Wheezing. No rales Abdomen: Soft and nontender. No rigidity. No distention. Skin: Skin warm and dry. Normal skin color. Normal skin turgor. Extremities: No lower extremity edema. No Lacerations. No Rash Neuro: Oriented X 3. No motor deficit. No sensory deficit. Moving all extremities. No slurred speech. CN 2 through 12 grossly intact Psych: calm, cooperative, normal affect Course Course Course Narrative: All of patient's labs pending Care team consult pending Physician observation started at 23:00 Discharge Plan Discharge Clinical Impression: Auditory hallucination Patient Disposition: Still a Patient Prescriptions: No Action ascorbic acid (vitamin C) [Vitamin C] 500 mg Tablet 500 mg PO BID ferrous sulfate 325 mg (65 mg iron) Tablet 325 mg PO BID mirtazapine 15 mg tablet 15 mg PO BEDTIME Trelegy Ellipta 200-62.5-25 mcg blister with device 1 ea inhalation DAILY naproxen 250 mg Tablet 250 mg PO BID PRN (Reason: Pain) famotidine 20 mg tablet 10 mg PO TIDWM temazepam 15 mg Capsule 15 mg PO BEDTIME PRN (Reason: if awake at 2AM) 30 Days Qty: 30 0RF lactulose 20 gram/30 mL solution 20 g PO DAILY PRN (Reason: constipation) 30 Days Qty: 900 0RF fluoxetine 40 mg capsule 80 mg PO DAILY haloperidol 5 mg tablet 5 mg PO TID atorvastatin 10 mg tablet 10 mg PO DAILY clozapine 100 mg tablet 100 mg PO BEDTIME amlodipine 5 mg tablet 5 mg PO DAILY pantoprazole 20 mg tablet,delayed release (DR/EC) 40 mg PO BID lorazepam 0.5 mg tablet 0.5 mg PO BID PRN (Reason: Anxiety) buspirone 10 mg tablet 10 mg PO BID montelukast 10 mg tablet 10 mg PO BEDTIME albuterol sulfate 90 mcg/actuation HFA aerosol inhaler 2 puff inhalation Q6H PRN (Reason: Wheezing) fluphenazine HCl 5 mg tablet 15 mg PO BID prazosin 2 mg capsule 4 mg PO BEDTIME metformin 500 mg tablet 500 mg PO BID nystatin 100,000 unit/gram powder 1 appl topical BID Qty: 60 0RF Interventions: [place]-Suicide Risk Severity Scale Last Done: 11/01/24 22:57 Print Language: Macedonian
[2024-11-01 23:06] VITALS: BP 151/71; PULSE 134; RESP 20; TEMP 36.7; O2SAT 96; BMI 44.1
[2024-11-02 00:25] LABS: MANUAL DIFF FLAG NO
[2024-11-02 00:30] LABS: Basophils Percent Auto 0.5 % (0-2); Eosinophils Absolute Auto 0.4 X10*3/uL (0.0-0.4); Eosinophils Percent Auto 4.5 % (0-4); Hematocrit 34.8 % (37.0-47.0); Hemoglobin 11.7 g/dl (12.0-16.0); Imm Gran Abs Auto 0.07 X10*3/uL (0.00-0.03); Imm Gran Pct Auto 0.9 % (0.0-0.4); Lymphocytes Absolute Auto 1.9 X10*3/uL (1.2-4.9); Lymphocytes Percent Auto 24.9 % (20-40); Mean Corpuscular HGB Conc 33.6 g/dl (31.0-35.0); Mean Corpuscular Volume 92.3 fL (80.0-98.0); Mean Platelet Volume 9.1 fL (9.4-12.3); Monocytes Absolute Auto 0.7 X10*3/uL (0.1-1.2); Monocytes Percent Auto 8.7 % (2-11); Neutrophils Absolute Auto 4.7 x10*3/uL (2.0-8.3); Neutrophils Percent Auto 60.5 % (45-73); Platelet Count 248 X10*3/uL (160-400); Red Blood Count 3.77 X10*6/uL (4.20-5.50); Red Cell Distribution Width 12.7 % (11.0-16.0); White Blood Count 7.7 X10*3/uL (4.8-10.8)
[2024-11-02 00:46] LABS: Troponin-I High Sensitivity < 2.7 ng/L (<3.5-17.0)
[2024-11-02 00:57] LABS: Alanine Aminotransferase 36 U/L (0-31); Albumin Level 3.9 g/dL (3.5-5.0); Anion Gap 16 (12-20); Aspartate Amino Transferase 29 U/L (5-31); Bilirubin Direct < 0.2 mg/dL (0.0-0.5); Bilirubin Total 0.2 mg/dL (0.0-1.0); Blood Urea Nitrogen 10 mg/dL (9-16); Calcium 8.8 mg/dL (8.4-10.2); Carbon Dioxide 22 mmol/L (22-29); Chloride 107 mmol/L (96-108); Creatinine Clr Calc Pharmacy 135.6; Estimated Glomerular Filt Rate > 60; Ethanol < 10 mg/dL; Glucose Random 120 mg/dL (60-115); HCG Quantitative < 2 mIU/mL; Potassium 3.8 mmol/L (3.3-5.1); Sodium 141 mmol/L (135-145); Total Protein 6.8 g/dL (6.5-8.0)
[2024-11-02 01:17] LABS: Alkaline Phosphatase 148 U/L (39-117)
[2024-11-02 07:33] VITALS: BP 158/98; PULSE 102; RESP 16; TEMP 36.1; O2SAT 94
[2024-11-02] MEDS: FLUoxetine HCl 20 MG CAPSULE 80 MG PO (09:45)
[2024-11-02] MEDS: HaloperidoL 5 MG TABLET PO (09:45)
[2024-11-02] MEDS: busPIRone HCl 10 MG TABLET PO (09:45)
[2024-11-02] MEDS: metFORMIN HCl 500 MG TABLET PO (09:45)
[2024-11-02] MEDS: Atorvastatin Calcium 10 MG TABLET PO (09:45)
[2024-11-02] MEDS: amLODIPine Besylate 5 MG TABLET PO (09:45)
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
--- NOTE | 2024-11-02 11:25 | MHC.CARE ---
Pt has been placed on alert and her 3 day follow up has been activated.
[2024-11-02 11:40] VITALS: BP 158/98; PULSE 102; RESP 16; TEMP 36.1; O2SAT 94
== END 2024-11-02 11:46 | disposition home or self-care (01) ==
PROVIDERS: Emergency Provider Emergency Medicine; PCP Nurse Practitioner Family
DX: R44.0 Auditory hallucinations (principal); R45.851 Suicidal ideations; R07.9 Chest pain, unspecified; E11.9 Type 2 diabetes mellitus without complications; E78.5 Hyperlipidemia, unspecified; J45.909 Unspecified asthma, uncomplicated; F33.2 Major depressive disorder, recurrent severe without psychotic features; F43.10 Post-traumatic stress disorder, unspecified; F60.3 Borderline personality disorder; F17.210 Nicotine dependence, cigarettes, uncomplicated; E66.9 Obesity, unspecified; Z68.41 Body mass index [BMI] 40.0-44.9, adult; Z91.51 Personal history of suicidal behavior; Z87.440 Personal history of urinary (tract) infections; Z91.52 Personal history of nonsuicidal self-harm; Z79.84 Long term (current) use of oral hypoglycemic drugs; Z79.85 Long-term (current) use of injectable non-insulin antidiabetic drugs; Z79.899 Other long term (current) drug therapy
CPT/HCPCS: 36415; 80048; 80076; 80307; 84484; 84702; 85025; 93005; 99284; S9485

== ENCOUNTER → 2024-11-01 22:58 | Outpatient (BNV) | payer MEDICARE, MEDICAID, SELFPAY | PROVIDERS: Emergency Provider Emergency Medicine; PCP Nurse Practitioner Family; Visit Provider Internal Medicine Cardiovascular Disease | DX: R07.9 Chest pain, unspecified (principal) | CPT/HCPCS: 93010 ==

== ENCOUNTER 2024-11-03 11:29 | Emergency (ER) | payer MEDICARE, MEDICAID, SELFPAY ==
--- NOTE | 2024-11-03 | ECG_ITS ---
Test Reason : MED CLEARANCE Blood Pressure : */* mmHG Vent. Rate : 100 BPM Atrial Rate : 100 BPM P-R Int : 172 ms QRS Dur : 84 ms QT Int : 360 ms P-R-T Axes : 52 25 45 degrees QTcB Int : 464 ms Normal sinus rhythm Normal ECG When compared with ECG of 01-Nov-2024 23:10, Nonspecific T wave abnormality now evident in Anterior leads Referred By: Generic ED Physician Electronically Signed By: DONALD HOOKER MD
[2024-11-03 11:44] VITALS: BP 141/76; PULSE 100; O2SAT 98; BMI 43.4
[2024-11-03 12:04] VITALS: BP 172/105; PULSE 111; RESP 18; TEMP 36.7; O2SAT 99
[2024-11-03 12:14] LABS: Appearance Urine Clear; Color Urine Yellow; Glucose Urine UA Negative (Negative); Leukocyte Esterase Urine Negative (Negative); Nitrite Urine Negative (Negative); PH 6.5 (5.0-9.0); Specific Gravity - Urine <= 1.005 (1.005-1.025); Urine Blood Negative (Negative); Urine Ketones Negative (Negative); Urine Protein Negative (Neg-Trace)
[2024-11-03 12:19] LABS: Bacteria Urine None Seen (None Seen); Hyaline Casts Urine 0-2 /LPF (0-2); RBC Urine 0-2 /HPF (0-2); Squamous Epithelial Cell Urine 0-2 /HPF (0-2); WBC Urine 0-5 /HPF (0-5)
[2024-11-03 12:22] LABS: Amphetamine Screen Urine Not Detected (Not Detect); Barbiturates, Urine Not Detected (Not Detect); Benzodiazepines Screen Urine Not Detected (Not Detect); Buprenorphine Scr Not Detected (Not Detect); Cannabinoid Screen Urine Not Detected (Not Detect); Cocaine Screen Urine Not Detected (Not Detect); Fentanyl, urine Not Detected (Not Detect); Methadone Screen, Urine Not Detected (Not Detect); Opiate Screen Urine Not Detected (Not Detect); Oxycodone Screen Urine Not Detected (Not Detect); Phencyclidine Screen Urine Not Detected (Not Detect)
[2024-11-03 12:25] LABS: MANUAL DIFF FLAG NO
[2024-11-03 12:28] LABS: Basophils Absolute Auto 0.1 X10*3/uL (0.0-0.2); Basophils Percent Auto 0.6 % (0-2); Eosinophils Absolute Auto 0.4 X10*3/uL (0.0-0.4); Eosinophils Percent Auto 4.4 % (0-4); Imm Gran Abs Auto 0.09 X10*3/uL (0.00-0.03); Lymphocytes Absolute Auto 1.4 X10*3/uL (1.2-4.9); Lymphocytes Percent Auto 16.1 % (20-40); Mean Corpuscular HGB Conc 33.3 g/dl (31.0-35.0); Mean Corpuscular Hemoglobin 30.7 pg (27.0-33.0); Mean Platelet Volume 9.1 fL (9.4-12.3); Monocytes Absolute Auto 0.7 X10*3/uL (0.1-1.2); Monocytes Percent Auto 8.6 % (2-11); Neutrophils Percent Auto 69.3 % (45-73); Platelet Count 270 X10*3/uL (160-400); Red Blood Count 4.24 X10*6/uL (4.20-5.50); Red Cell Distribution Width 12.9 % (11.0-16.0); White Blood Count 8.6 X10*3/uL (4.8-10.8)
--- NOTE | 2024-11-03 12:29 | PC.NURSE ---
jaelyn from senior living s/p intentional overdose on 10 unlabeled/unknown small yellow [place] pills around approx. 1045 this morning. pt reports SI w/ voices telling her to do it. denies HI. pt c/o nausea and generalized abd pain radiating to chest w/ associated dizziness. EMS placed a 20gIV in the left AC - patent/intact. EMS administered zofran w/ good effect. upon ED arrival - a&ox4. tachycardic. hypertensive. pt reports hx of HTN but unaware on medication she takes and states that she did not take her own prescribed medication this morning. pt changed over by security. urine obtained/sent to lab. labs obtained/sent to lab. pt on RA w/o difficulty. pt seems to be in no respiratory distress. no sob/wob noted. respirations even/unlabored. 1:1 sitter present. plan of care ongoing.
[2024-11-03 12:41] LABS: Acetaminophen LAB < 3 mcg/mL (<30); Salicylate < 5.0 mg/dL (15-30)
[2024-11-03 12:52] LABS: Alanine Aminotransferase 35 U/L (0-31); Albumin Level 4.3 g/dL (3.5-5.0); Alkaline Phosphatase 167 U/L (39-117); Anion Gap 15 (12-20); Aspartate Amino Transferase 24 U/L (5-31); Bilirubin Total 0.1 mg/dL (0.0-1.0); Blood Urea Nitrogen 8 mg/dL (9-16); Calcium 9.4 mg/dL (8.4-10.2); Carbon Dioxide 27 mmol/L (22-29); Chloride 103 mmol/L (96-108); Creatinine Clr Calc Pharmacy 138.6; Estimated Glomerular Filt Rate > 60; Ethanol < 10 mg/dL; Glucose Random 146 mg/dL (60-115); Potassium 4.1 mmol/L (3.3-5.1); Sodium 141 mmol/L (135-145); Total Protein 7.4 g/dL (6.5-8.0)
[2024-11-03 13:38] VITALS: BP 165/107; PULSE 108; RESP 18; TEMP 36.9; O2SAT 95
--- NOTE | 2024-11-03 13:51 | ED.PSYCH ---
HPI - Psych General Chief Complaint: Psychiatric Symptoms Stated Complaint: HEARING VOICES TO HURT SELF,TOOK 10 UNK PILLS Time Seen by Provider: 11/03/24 13:51 Source: patient Mode of arrival: EMS Limitations: no limitations History of Present Illness ED Provider: Dr. Raymond Contreras HPI Narrative: 48-year-old female history of asthma, , MDD with auditory hallucinations, anxiety, suicide attempts in the past, diabetes, GERD, hyperlipidemia, who presents emergency department for evaluation of an overdose. The patient states that she took 10 pills from a prescription pill bottle that she does not know the name of. She denies taking any over the counter medications. She states that she was having auditory hallucinations in the voices told her to take an overdose. Patient was seen in the emergency department frequently for psychiatric illnesses and for intentional medication overdoses. Related Data Home Medications ?Medication ?Instructions ?Recorded ?Confirmed albuterol sulfate 90 mcg/actuation 2 puff inhalation Q6H PRN Wheezing 06/24/24 11/02/24 aerosol inhaler amlodipine 5 mg tablet 5 mg PO DAILY 06/24/24 11/02/24 atorvastatin 10 mg tablet 10 mg PO DAILY 06/24/24 11/02/24 buspirone 10 mg tablet 10 mg PO BID 06/24/24 11/02/24 clozapine 100 mg tablet 100 mg PO BEDTIME 06/24/24 11/02/24 fluoxetine 40 mg capsule 80 mg PO DAILY 06/24/24 11/02/24 fluphenazine HCl 5 mg tablet 15 mg PO BID 06/24/24 11/02/24 haloperidol 5 mg tablet 5 mg PO TID 06/24/24 11/02/24 lorazepam 0.5 mg tablet 0.5 mg PO BID PRN Anxiety 06/24/24 11/02/24 montelukast 10 mg tablet 10 mg PO BEDTIME 06/24/24 11/02/24 pantoprazole 20 mg tablet,delayed 40 mg PO BID 06/24/24 11/02/24 release prazosin 2 mg capsule 4 mg PO BEDTIME 06/24/24 11/02/24 metformin 500 mg tablet 500 mg PO BID 07/15/24 11/02/24 ascorbic acid (vitamin C) 500 mg 500 mg PO BID 10/01/24 11/02/24 tablet (Vitamin C) famotidine 20 mg tablet 10 mg PO TIDWM 10/01/24 11/02/24 ferrous sulfate 325 mg (65 mg 325 mg PO BID 10/01/24 11/02/24 iron) tablet fluticasone fur. 200 mcg-umeclid 1 ea inhalation DAILY 10/01/24 11/02/24 62.5 mcg-vilant 25 mcg inhalat.powder (Trelegy Ellipta) mirtazapine 15 mg tablet 15 mg PO BEDTIME 10/01/24 11/02/24 naproxen 250 mg tablet 250 mg PO BID PRN Pain 10/01/24 11/02/24 Previous Rx's ?Medication ?Instructions ?Recorded nystatin 100,000 unit/gram topical 1 appl topical BID #60 grams 09/25/24 powder lactulose 20 gram/30 mL oral 20 g (30 mL) PO DAILY PRN 10/06/24 solution constipation 30 days #900 mL temazepam 15 mg capsule 15 mg PO BEDTIME PRN if awake at 10/06/24 2AM 30 days #30 caps Allergies Allergy/AdvReac Type Severity Reaction Status Date / Time azithromycin [AZITHROMYCIN] Allergy Severe Rash Verified 11/03/24 11:48 Fish Containing Products Allergy Severe Anaphylaxis Verified 11/03/24 11:48 codeine [Codeine] Allergy Intermediate Rash Verified 11/03/24 11:48 Penicillins Allergy Intermediate Rash Verified 11/03/24 11:48 prednisone [Prednisone] Allergy Intermediate Rash Verified 11/03/24 11:48 Sulfa (Sulfonamide Allergy Intermediate Rash Verified 11/03/24 11:48 Antibiotics) [Sulfa (Sulfonamides)] ziprasidone [From Geodon] Allergy Intermediate dysuria, Verified 11/03/24 11:48 rash lithium Allergy Unknown Rash Verified 11/03/24 11:48 Review of Systems Review of Systems: Yes all other systems are reviewed and are negative PMFSH Past Medical History Medical History Asthma Suicidal ideation MDD (major depressive disorder), recurrent episode, severe Chest pain Acute anxiety COVID-19 Full body hives Major depression Dizziness Suicide attempt UTI (urinary tract infection) Acetaminophen overdose COVID History of attempted suicide History of non-suicidal self-harm Hypomagnesemia Suicide attempt Suicide attempt by acetaminophen overdose Acetaminophen overdose Depression Diabetes type 2, controlled Borderline personality disorder PTSD (post-traumatic stress disorder) Overdose GERD (gastroesophageal reflux disease) Mood disorder Hyperlipidemia Bronchitis Social History Social History Household Members: Other Household Members Other:: alf members Housing: Other Housing Other:: alf Do you presently have visiting nurse or other home services: No Unable to assess alcohol history related to: Unknown Alcohol intake: never Comment: sitter in room Patient Tobacco Use Status: Current everyday Tobacco user Tobacco use type: Cigarette Cigarette Packs Per Day: 1 Cigarettes Per Day: 20.0 Years Smoked: 10 Smoked in Last 30 Days: No e-Cigarette/Vaping Use: Never Used Second Hand Smoke Exposure: No Use of substances other than those prescribed or required for medical reasons: No Substance Use Type: Caffiene Advance Directives: No Advance Directives Information Provided: Yes Do you have a plan to hurt others: No Plan Patient : No service: No Current occupational status: unemployed and disabled Sexual orientation: Straight/Heterosexual Physical Exam Vital Signs: Vital Signs: Last Vital Signs Temp 98.2 F 11/03/24 17:50 Pulse 95 11/03/24 18:25 Resp 16 11/03/24 18:25 BP 148/95 H 11/03/24 18:25 Pulse Ox 98 11/03/24 18:25 O2 Del Method Room Air 11/03/24 18:25 BMI result Body Mass Index 43.4 Vital signs revealed an elevated blood pressure otherwise unremarkable Exam: General: Awake, alert in no distress Head: Normocephalic, atraumatic EENT: PERRL, Lids normal, sclera normal, conjunctiva normal, nose normal , ears normal, throat without erythema or exudates Neck: Supple, no adenopathy Lung: breath sounds symmetric, no wheezing, rales or rhonchi Chest: symmetric movement, nontender Heart: regular rate and rhythm, normal S1, S2 no murmurs or rubs Abdomen: soft, non-tender, nondistended, normal bowel sounds Back: no vertebral tenderness, no CVAT Extremities: no deformities, moves all extremities symmetrically, multiple lacerations and varying states of healing on her forearms from self cutting Neuro: Awake, alert, oriented, normal speech, cranial nerves intact, moves all extremities symmetrically Psych: Pleasant, cooperative Medications Administered Discontinued Medications Generic Name Dose Route Start Last Admin Trade Name Freq PRN Reason Stop Dose Admin Amlodipine Besylate 5 mg 11/03/24 13:52 11/03/24 14:00 Amlodipine Besylate 5 Mg Tablet PO 11/03/24 13:53 5 mg ONCE ONE Administration Protocol Medical Decision Making Medical Decision Making [facility] Narrative: 48-year-old female history of asthma, , MDD with auditory hallucinations, anxiety, suicide attempts in the past, diabetes, GERD, hyperlipidemia, who presents emergency department for evaluation of an overdose. The patient states that she took 10 pills from a prescription pill bottle that she does not know the name of. She denies taking any over the counter medications. She states that she was having auditory hallucinations in the voices told her to take an overdose. Patient was seen in the emergency department frequently for psychiatric illnesses and for intentional medication overdoses. Differential diagnosis: ?Includes but is not limited to suicidal ideation, auditory hallucinations, depression, intentional drug overdose Course: 22:22 Start physician observation My interpretation patient's laboratory evaluation is as follows: CBC was normal. Glucose was elevated 146. ALT was elevated 35 and an elevated alkaline phosphatase of 167. Urinalysis was negative. Urine tox screen was negative. Initial troponin and salicylate were below detectable limits. 4 hour troponin and salicylates were below detectable limits. Ethanol was below detectable limits. Your patient was evaluated by the care team and placed on a Section 12 given her suicide attempt in her auditory hallucinations. Patient will remain in the emergency department until disposition can be determined or until patient's symptoms improve over time. Admission/Observation Consideration of admission/observation: Escalation of care including admission/observation considered (Yes) Lab Data [facility] Lab Attestation statement: I reviewed the patient's lab results. 11/03/24 12:17 11/03/24 12:17 Labs: Lab Results 11/03/24 11/03/24 11/03/24 Range/Units 11:59 12:17 15:40 WBC 8.6 (4.8-10.8) X10*3/uL RBC 4.24 (4.20-5.50) X10*6/uL Hgb 13.0 (12.0-16.0) g/dl Hct 39.0 (37.0-47.0) % MCV 92.0 (80.0-98.0) fL MCH 30.7 (27.0-33.0) pg MCHC 33.3 (31.0-35.0) g/dl RDW 12.9 (11.0-16.0) % Plt Count 270 (160-400) X10*3/uL MPV 9.1 L (9.4-12.3) fL Immature Gran % (Auto) 1.0 H (0.0-0.4) % Neut % (Auto) 69.3 (45-73) % Lymph % (Auto) 16.1 L (20-40) % [place] % (Auto) 8.6 (2-11) % Eos % (Auto) 4.4 H (0-4) % Baso % (Auto) 0.6 (0-2) % Lymph # (Auto) 1.4 (1.2-4.9) X10*3/uL [place] # (Auto) 0.7 (0.1-1.2) X10*3/uL Eos # (Auto) 0.4 (0.0-0.4) X10*3/uL Baso # (Auto) 0.1 (0.0-0.2) X10*3/uL Abs Immat Gran (auto) 0.09 H (0.00-0.03) X10*3/uL Absolute Neuts (auto) 6.0 (2.0-8.3) x10*3/uL Absolute Nucleated RBC 0.000 (0.0-0.012) X10*3/uL Nucleated RBC % (auto) 0.0 (0.0-0.2) /100WBC Sodium 141 (135-145) mmol/L Potassium 4.1 (3.3-5.1) mmol/L Chloride 103 (96-108) mmol/L Carbon Dioxide 27 (22-29) mmol/L Anion Gap 15 (12-20) BUN 8 L (9-16) mg/dL Creatinine 0.63 (0.5-1.4) mg/dL Estim Creat Clear Calc 138.6 Estimated GFR > 60 Random Glucose 146 H (60-115) mg/dL Calcium 9.4 D (8.4-10.2) mg/dL Total Bilirubin 0.1 (0.0-1.0) mg/dL AST 24 (5-31) U/L ALT 35 H (0-31) U/L Alkaline Phosphatase 167 H (39-117) U/L Total Protein 7.4 (6.5-8.0) g/dL Albumin 4.3 (3.5-5.0) g/dL Urine Color Yellow Urine Appearance Clear Urine pH 6.5 (5.0-9.0) Ur Specific [place] <= 1.005 (1.005-1.025) Urine Protein Negative (Neg-Trace) mg/dL Urine Glucose (UA) Negative (Negative) mg/dL Urine Ketones Negative (Negative) mg/dL Urine Blood Negative (Negative) Urine Nitrite Negative (Negative) Ur Leukocyte Esterase Negative (Negative) Urine RBC 0-2 (0-2) /HPF Urine WBC 0-5 (0-5) /HPF Ur Squamous Epith Cells 0-2 (0-2) /HPF Urine Bacteria None Seen (None Seen) Hyaline Casts 0-2 (0-2) /LPF Salicylates < 5.0 L < 5.0 L (15-30) mg/dL Urine Opiates Screen Not Detected (Not Detect) Ur Buprenorphine Scrn Not Detected (Not Detect) ng/mL Ur Oxycodone Screen Not Detected (Not Detect) ng/mL Urine Methadone Screen Not Detected (Not Detect) ng/mL Urine Fentanyl Screen Not Detected (Not Detect) Acetaminophen < 3 < 3 (<30) mcg/mL Ur Barbiturates Screen Not Detected (Not Detect) Ur Phencyclidine Scrn Not Detected (Not Detect) Ur Amphetamines Screen Not Detected (Not Detect) U Benzodiazepines Scrn Not Detected (Not Detect) Urine Cocaine Screen Not Detected (Not Detect) U Marijuana (THC) Screen Not Detected (Not Detect) Ethyl Alcohol < 10 mg/dL Independent Interpretation I performed an independent interpretation of an: EKG Interpretation: My independent interpretation patient's 12 EKG done at 13:16 hours is as follows: Sinus tachycardia with a rate of 100, normal TX interval, QRS duration QTC interval, no ST segment elevation, no ST segment depression, no significant T-wave abnormalities, no PACs, no PVCs except for the tachycardia this is a normal EKG Chronic Conditions Patient?s care impacted by: Other (Depression, auditory hallucinations) Discharge Plan Discharge Clinical Impression: Auditory hallucination Suicide gesture Qualifiers: Encounter type: initial encounter Qualified Code(s): X83.8XXA - Intentional self-harm by other specified means, initial encounter Patient Disposition: Still a Patient Prescriptions: No Action ascorbic acid (vitamin C) [Vitamin C] 500 mg Tablet 500 mg PO BID ferrous sulfate 325 mg (65 mg iron) Tablet 325 mg PO BID mirtazapine 15 mg tablet 15 mg PO BEDTIME Trelegy Ellipta 200-62.5-25 mcg blister with device 1 ea inhalation DAILY naproxen 250 mg Tablet 250 mg PO BID PRN (Reason: Pain) famotidine 20 mg tablet 10 mg PO TIDWM temazepam 15 mg Capsule 15 mg PO BEDTIME PRN (Reason: if awake at 2AM) 30 Days Qty: 30 0RF lactulose 20 gram/30 mL solution 20 g PO DAILY PRN (Reason: constipation) 30 Days Qty: 900 0RF fluoxetine 40 mg capsule 80 mg PO DAILY haloperidol 5 mg tablet 5 mg PO TID atorvastatin 10 mg tablet 10 mg PO DAILY clozapine 100 mg tablet 100 mg PO BEDTIME amlodipine 5 mg tablet 5 mg PO DAILY pantoprazole 20 mg tablet,delayed release (DR/EC) 40 mg PO BID lorazepam 0.5 mg tablet 0.5 mg PO BID PRN (Reason: Anxiety) buspirone 10 mg tablet 10 mg PO BID montelukast 10 mg tablet 10 mg PO BEDTIME albuterol sulfate 90 mcg/actuation HFA aerosol inhaler 2 puff inhalation Q6H PRN (Reason: Wheezing) fluphenazine HCl 5 mg tablet 15 mg PO BID prazosin 2 mg capsule 4 mg PO BEDTIME metformin 500 mg tablet 500 mg PO BID nystatin 100,000 unit/gram powder 1 appl topical BID Qty: 60 0RF Interventions: [place]-Suicide Risk Severity Scale Last Done: 11/03/24 13:27 Print Language: Lithuanian
[2024-11-03] MEDS: amLODIPine Besylate 5 MG TABLET PO (14:00)
--- NOTE | 2024-11-03 14:01 | PC.NURSE ---
pt remains hypertensive at this time. provider notified/aware. medication administered per provider order. effectiveness pending. 1:1 sitter remains present.
[2024-11-03 14:30] VITALS: BP 135/84; PULSE 103; RESP 18; TEMP 36.8; O2SAT 98
[2024-11-03 16:22] LABS: Acetaminophen LAB < 3 mcg/mL (<30); Salicylate < 5.0 mg/dL (15-30)
[2024-11-03 17:50] VITALS: BP 151/95; PULSE 104; RESP 18; TEMP 36.8; O2SAT 97
[2024-11-03 18:25] VITALS: BP 148/95; PULSE 95; RESP 16; O2SAT 98
--- NOTE | 2024-11-03 21:21 | MHC.CARE ---
Pt has been accepted to [facility] for 11/[address] Zarate and accepting facility will call for N2N
[2024-11-04 04:51] VITALS: BP 139/75; PULSE 100; RESP 17; TEMP 36.8; O2SAT 95
--- NOTE | 2024-11-04 05:42 | PC.NURSE ---
Patient is awake, calm and cooperative. Patient denies any pain/ discomfort. Patient requested and provided with orange jello and diet octaviano yudelka, provided and tolerated well. Patient ambulated to the restroom, gait is steady. Patient offers no complaints at present. 1:1 sitter at bedside.
--- NOTE | 2024-11-04 08:59 | PC.NURSE ---
Assumed care of patient at 0845 from the main ER. Patient is calm and cooperative, ambulating around BH pod with steady gait, talking with other patients and staff. continue plan of care for transfer to [facility]
--- NOTE | 2024-11-04 09:43 | MHC.CARE ---
Call to care home. patient leaving earlier than expected ambulance is now coming at 10:30, asked if staff could bring belongings in the next 30 min. Staff said they would try.
[2024-11-04 10:28] VITALS: BP 138/96; PULSE 92; RESP 16; TEMP 36.7; O2SAT 99
--- NOTE | 2024-11-04 10:51 | MHC.EDTECH ---
Called [facility] and spoke with Diamond (direct Care Staff). 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
== END 2024-11-04 10:30 ==
PROVIDERS: Emergency Provider Emergency Medicine Emergency Medical Services; PCP Nurse Practitioner Family
DX: R44.0 Auditory hallucinations (principal); T50.902A Poisoning by unspecified drugs, medicaments and biological substances, intentional self-harm, initial encounter; Y92.9 Unspecified place or not applicable; Z79.899 Other long term (current) drug therapy; E11.9 Type 2 diabetes mellitus without complications
CPT/HCPCS: 36415; 80053; 80143; 80179; 80307; 81001; 85025; 93005; 99285; S9485

== ENCOUNTER → 2024-11-03 13:16 | Outpatient (BNV) | payer MEDICARE, MEDICAID, SELFPAY | PROVIDERS: Emergency Provider Emergency Medicine Emergency Medical Services; PCP Nurse Practitioner Family; Visit Provider Internal Medicine Cardiovascular Disease | DX: R44.0 Auditory hallucinations (principal) | CPT/HCPCS: 93010 ==

== ENCOUNTER 2024-11-27 23:00 | Emergency (ER) | payer MEDICARE, MEDICAID, SELFPAY ==
--- NOTE | ~2024-11-27 | XR_ITS ---
CLINICAL HISTORY: CP 1 view chest x-ray Comparison: CR/SR - XR CHEST 1V - 06/07/24 11:43 EDT Findings: The lungs are clear. Similar prominent/enlarged cardiac silhouette. No acute fracture. IMPRESSION: 1. No acute findings. This document has been electronically signed by: Clayton Hendricks MD on 11/28/2024 02:26:55
[2024-11-27 23:11] VITALS: BP 129/55; BP 164/82; PULSE 130; PULSE 137; RESP 20; TEMP 36.6; O2SAT 95; O2SAT 98; BMI 45.1
--- NOTE | 2024-11-27 23:16 | ECG_ITS ---
Test Reason : cp dizziness Blood Pressure : */* mmHG Vent. Rate : 129 BPM Atrial Rate : 129 BPM P-R Int : 146 ms QRS Dur : 86 ms QT Int : 310 ms P-R-T Axes : 51 48 51 degrees QTcB Int : 454 ms Sinus tachycardia Possible Left atrial enlargement Borderline ECG When compared with ECG of 03-Nov-2024 13:16, No significant change was found Referred By: Generic ED Physician Electronically Signed By: DONALD HOOKER MD
[2024-11-27 23:29] VITALS: BP 129/55; PULSE 133; RESP 20; TEMP 36.6; O2SAT 95
[2024-11-27 23:31] LABS: Glucose, Whole Blood 317 mg/dL (60-115)
[2024-11-27 23:50] LABS: MANUAL DIFF FLAG NO
[2024-11-27 23:51] LABS: Basophils Percent Auto 0.3 % (0-2); Eosinophils Absolute Auto 0.4 X10*3/uL (0.0-0.4); Eosinophils Percent Auto 4.2 % (0-4); Hematocrit 35.4 % (37.0-47.0); Hemoglobin 12.1 g/dl (12.0-16.0); Imm Gran Abs Auto 0.09 X10*3/uL (0.00-0.03); Lymphocytes Absolute Auto 1.7 X10*3/uL (1.2-4.9); Lymphocytes Percent Auto 20.1 % (20-40); Mean Corpuscular HGB Conc 34.2 g/dl (31.0-35.0); Mean Corpuscular Hemoglobin 31.4 pg (27.0-33.0); Mean Corpuscular Volume 91.9 fL (80.0-98.0); Mean Platelet Volume 9.1 fL (9.4-12.3); Monocytes Absolute Auto 0.8 X10*3/uL (0.1-1.2); Monocytes Percent Auto 9.7 % (2-11); Neutrophils Absolute Auto 5.6 x10*3/uL (2.0-8.3); Neutrophils Percent Auto 64.7 % (45-73); Platelet Count 269 X10*3/uL (160-400); Red Blood Count 3.85 X10*6/uL (4.20-5.50); Red Cell Distribution Width 12.9 % (11.0-16.0); White Blood Count 8.7 X10*3/uL (4.8-10.8)
[2024-11-28 00:11] LABS: Alanine Aminotransferase 26 U/L (0-31); Albumin Level 4.1 g/dL (3.5-5.0); Alkaline Phosphatase 184 U/L (39-117); Anion Gap 17 (12-20); Aspartate Amino Transferase 22 U/L (5-31); Bilirubin Total 0.1 mg/dL (0.0-1.0); Blood Urea Nitrogen 14 mg/dL (9-16); Carbon Dioxide 20 mmol/L (22-29); Chloride 105 mmol/L (96-108); Creatinine Clr Calc Pharmacy 124.1; Estimated Glomerular Filt Rate > 60; Glucose Random 252 mg/dL (60-115); Potassium 3.7 mmol/L (3.3-5.1); Sodium 138 mmol/L (135-145); Total Protein 7.1 g/dL (6.5-8.0)
[2024-11-28 00:17] LABS: B Type Natriuretic Peptide < 10 pg/mL (<100)
[2024-11-28 00:19] LABS: Troponin-I High Sensitivity < 2.7 ng/L (<3.5-17.0)
--- NOTE | 2024-11-28 01:14 | ED_ITS ---
HPI - Chest Pain General Chief Complaint: Chest Pain Stated Complaint: dizzy,sob Time Seen by Provider: 11/27/24 23:11 Source: patient and EMS Mode of arrival: EMS Limitations: no limitations History of Present Illness ED Provider: Dr. Eileen Ryan HPI narrative: Patient comes to the emergency room complaining of chest pain, shortness of breath that started since yesterday. Patient states that she was seen at [facility] a few days ago, workup was negative, discharged home. Patient states that now she is concerned that her glucose has been in the 300s. At this time, patient states that she has no chest pain or shortness of breath. No dizziness or abdominal pain. Patient denies SI or HI Related Data Home Medications ?Medication ?Instructions ?Recorded ?Confirmed albuterol sulfate 90 mcg/actuation 2 puff inhalation Q6H PRN Wheezing 06/24/24 11/04/24 aerosol inhaler amlodipine 5 mg tablet 5 mg PO DAILY 06/24/24 11/04/24 atorvastatin 10 mg tablet 10 mg PO DAILY 06/24/24 11/04/24 buspirone 10 mg tablet 10 mg PO BID 06/24/24 11/04/24 clozapine 100 mg tablet 100 mg PO BEDTIME 06/24/24 11/04/24 fluoxetine 40 mg capsule 80 mg PO DAILY 06/24/24 11/04/24 fluphenazine HCl 5 mg tablet 15 mg PO BID 06/24/24 11/04/24 montelukast 10 mg tablet 10 mg PO BEDTIME 06/24/24 11/04/24 pantoprazole 20 mg tablet,delayed 40 mg PO BID 06/24/24 11/04/24 release prazosin 2 mg capsule 4 mg PO BEDTIME 06/24/24 11/04/24 metformin 500 mg tablet 500 mg PO BID 07/15/24 11/04/24 famotidine 20 mg tablet 10 mg PO TIDWM 10/01/24 11/04/24 ferrous sulfate 325 mg (65 mg 325 mg PO BID 10/01/24 11/04/24 iron) tablet fluticasone fur. 200 mcg-umeclid 1 ea inhalation DAILY 10/01/24 11/04/24 62.5 mcg-vilant 25 mcg inhalat.powder (Trelegy Ellipta) mirtazapine 15 mg tablet 15 mg PO BEDTIME 10/01/24 11/04/24 nicotine 21 mg/24 hr daily 1 patch topical DAILY PRN Nicotine 11/04/24 11/04/24 transdermal patch Cravings Previous Rx's ?Medication ?Instructions ?Recorded nystatin 100,000 unit/gram topical 1 appl topical BID #60 grams 09/25/24 powder temazepam 15 mg capsule 15 mg PO BEDTIME PRN if awake at 10/06/24 2AM 30 days #30 caps Allergies Allergy/AdvReac Type Severity Reaction Status Date / Time azithromycin [AZITHROMYCIN] Allergy Severe Rash Verified 11/27/24 23:22 Fish Containing Products Allergy Severe Anaphylaxis Verified 11/27/24 23:22 codeine [Codeine] Allergy Intermediate Rash Verified 11/27/24 23:22 Penicillins Allergy Intermediate Rash Verified 11/27/24 23:22 prednisone [Prednisone] Allergy Intermediate Rash Verified 11/27/24 23:22 Sulfa (Sulfonamide Allergy Intermediate Rash Verified 11/27/24 23:22 Antibiotics) [Sulfa (Sulfonamides)] ziprasidone [From Geodon] Allergy Intermediate dysuria, Verified 11/27/24 23:22 rash lithium Allergy Unknown Rash Verified 11/27/24 23:22 Review of Systems 2 Review of Systems: Constitutional : No Weight loss, No Fever, No Chills, No Night Sweats, No Fatigue, No Malaise ENT/Mouth : No Hearing loss, No Ear Pain, No Nasal Congestion, No Sinus Pain, No Hoarseness, No sore throat, No Rhinorrhea, No Swallowing Difficulty Eyes: No Eye Pain, No Swelling, No Redness, No Foreign Body, No Discharge, No Vision Changes Cardiovascular : Complaining of Chest Pain which self-resolved, , no palpitations, no orthopnea Respiratory : No Cough, No Sputum, No Wheezing, denies shortness of breath Gastrointestinal : No Nausea, No Vomiting, No Diarrhea, No Constipation, No abdominal Pain, No Hematochezia, No Melena Genitourinary : no irregular bleeding, No Dysuria, No Urinary Frequency, No Hematuria, No Urinary Incontinence, No Urgency, No Flank Pain, No Urinary Flow Changes, No Hesitancy Musculoskeletal : No joint pain, No Myalgias, No Joint Swelling Skin : No Skin Lesions, No rash Neuro : No Weakness, No Numbness, No Paresthesias, No Loss of Consciousness, No Dizziness, No Headache Psych : No Anxiety/Panic, No Depression, No SI/HI/AH/VH, No Social Issues, Heme/Lymph: No Bruising, No Bleeding,No Lymphadenopathy Endocrine : No Polyuria, No Polydipsia, No Temperature Intolerance [facility] Past Medical History Medical History Asthma Suicidal ideation MDD (major depressive disorder), recurrent episode, severe Chest pain Acute anxiety COVID-19 Full body hives Major depression Dizziness Suicide attempt UTI (urinary tract infection) Acetaminophen overdose COVID History of attempted suicide History of non-suicidal self-harm Hypomagnesemia Suicide attempt Suicide attempt by acetaminophen overdose Acetaminophen overdose Depression Diabetes type 2, controlled Borderline personality disorder PTSD (post-traumatic stress disorder) Overdose GERD (gastroesophageal reflux disease) Mood disorder Hyperlipidemia Bronchitis Social History Social History Household Members: Other Household Members Other:: [facility] members Housing: Other Housing Other:: [facility] Do you presently have visiting nurse or other home services: No Unable to assess alcohol history related to: Unknown Alcohol intake: never Comment: sitter in room Patient Tobacco Use Status: Current everyday Tobacco user Tobacco use type: Cigarette Cigarette Packs Per Day: 1 Cigarettes Per Day: 20.0 Years Smoked: 10 Smoked in Last 30 Days: Yes e-Cigarette/Vaping Use: Never Used Second Hand Smoke Exposure: No Use of substances other than those prescribed or required for medical reasons: No Substance Use Type: Caffiene Advance Directives: No Advance Directives Information Provided: Yes Do you have a plan to hurt others: No Plan service: No Current occupational status: unemployed and disabled Sexual orientation: Straight/Heterosexual Physical Exam 2 Vital Signs: Vital Signs: Last Vital Signs Temp 97.8 F 11/27/24 23:29 Pulse 133 H 11/27/24 23:29 Resp 20 11/27/24 23:29 BP 129/55 L 11/27/24 23:29 Pulse Ox 95 11/27/24 23:29 O2 Del Method Room Air 11/27/24 23:29 BMI result Body Mass Index 45.1 Medical Decision Making Medical Decision Making MDM Narrative: My interpretation of EKG: Normal sinus rhythm, tachycardia heart rate 129, no ST segment depression or elevation, no T-wave inversion, QTC 454 Patient noted to be significantly tachycardic for no clear reason, patient not febrile.. We will obtain a PT / INR and also a D-dimer. If positive, it would be worth scanning the patient. Current the patient receiving IV fluids Patient's blood glucose 252, no need for insulin at this time. D-dimer pending Orthostatic vitals pain and I gave sign out to my colleague Dr. Mitchell Differential Diagnosis Differential Diagnoses: The differential diagnosis associated with the presentation includes Lab Data 11/27/24 23:45 11/27/24 23:45 Labs: Lab Results 11/27/24 11/27/24 Range/Units 23:25 23:45 WBC 8.7 (4.8-10.8) X10*3/uL RBC 3.85 L (4.20-5.50) X10*6/uL Hgb 12.1 (12.0-16.0) g/dl Hct 35.4 L (37.0-47.0) % MCV 91.9 (80.0-98.0) fL MCH 31.4 (27.0-33.0) pg MCHC 34.2 (31.0-35.0) g/dl RDW 12.9 (11.0-16.0) % Plt Count 269 (160-400) X10*3/uL MPV 9.1 L (9.4-12.3) fL Immature Gran % (Auto) 1.0 H (0.0-0.4) % Neut % (Auto) 64.7 (45-73) % Lymph % (Auto) 20.1 (20-40) % Dickson % (Auto) 9.7 (2-11) % Eos % (Auto) 4.2 H (0-4) % Baso % (Auto) 0.3 (0-2) % Lymph # (Auto) 1.7 (1.2-4.9) X10*3/uL Dickson # (Auto) 0.8 (0.1-1.2) X10*3/uL Eos # (Auto) 0.4 (0.0-0.4) X10*3/uL Baso # (Auto) 0.0 (0.0-0.2) X10*3/uL Abs Immat Gran (auto) 0.09 H (0.00-0.03) X10*3/uL Absolute Neuts (auto) 5.6 (2.0-8.3) x10*3/uL Absolute Nucleated RBC 0.000 (0.0-0.012) X10*3/uL Nucleated RBC % (auto) 0.0 (0.0-0.2) /100WBC Sodium 138 (135-145) mmol/L Potassium 3.7 (3.3-5.1) mmol/L Chloride 105 (96-108) mmol/L Carbon Dioxide 20 L (22-29) mmol/L Anion Gap 17 (12-20) BUN 14 (9-16) mg/dL Creatinine 0.72 (0.5-1.4) mg/dL Estim Creat Clear Calc 124.1 Estimated GFR > 60 POC Glucose 317 H (60-115) mg/dL Random Glucose 252 H (60-115) mg/dL Calcium 9.0 (8.4-10.2) mg/dL Total Bilirubin 0.1 (0.0-1.0) mg/dL AST 22 (5-31) U/L ALT 26 (0-31) U/L Alkaline Phosphatase 184 H (39-117) U/L Troponin I High Sens < 2.7 (<3.5-17.0) ng/L B-Natriuretic Peptide < 10 (<100) pg/mL Total Protein 7.1 (6.5-8.0) g/dL Albumin 4.1 (3.5-5.0) g/dL Beta HCG, Quant < 2 mIU/mL Discharge Plan Discharge Clinical Impression: Shortness of breath, Atypical chest pain Prescriptions: No Action ferrous sulfate 325 mg (65 mg iron) Tablet 325 mg PO BID mirtazapine 15 mg tablet 15 mg PO BEDTIME Trelegy Ellipta 200-62.5-25 mcg blister with device 1 ea inhalation DAILY famotidine 20 mg tablet 10 mg PO TIDWM temazepam 15 mg Capsule 15 mg PO BEDTIME PRN (Reason: if awake at 2AM) 30 Days Qty: 30 0RF fluoxetine 40 mg capsule 80 mg PO DAILY atorvastatin 10 mg tablet 10 mg PO DAILY clozapine 100 mg tablet 100 mg PO BEDTIME amlodipine 5 mg tablet 5 mg PO DAILY pantoprazole 20 mg tablet,delayed release (DR/EC) 40 mg PO BID buspirone 10 mg tablet 10 mg PO BID montelukast 10 mg tablet 10 mg PO BEDTIME albuterol sulfate 90 mcg/actuation HFA aerosol inhaler 2 puff inhalation Q6H PRN (Reason: Wheezing) fluphenazine HCl 5 mg tablet 15 mg PO BID prazosin 2 mg capsule 4 mg PO BEDTIME metformin 500 mg tablet 500 mg PO BID nystatin 100,000 unit/gram powder 1 appl topical BID Qty: 60 0RF nicotine 21 mg/24 hr patch 24 hour 1 patch topical DAILY PRN (Reason: Nicotine Cravings) Print Language: Albanian
[2024-11-28 02:11] LABS: HCG Quantitative < 2 mIU/mL
--- OUTSIDE RECORDS SUMMARY | 2024-11-28 02:19 | XMS_ITS | Encounter Summary ---
Author Organization [facility] Address [address] [place] [address] Care Team Providers Care Hr Receptionist Name Role Phone Nikki Alcantar MD Primary Care Provider [phone] Michelle Norris MD Primary Care Provider Unavail [facility] Primary Care Provider [facility] Michelle Norris MD Primary Care Provider Unavail [facility] Rosetta Diamond MD Primary Care Provider + Encounter Details Date Type Department Care Team Description 04/21/2008 Hospital Medical Records [address] [place] [id number] Bandar Paul Social History Tobacco Use Types Packs/Day Years Used Date Smoking Tobacco: Every Day Cigarettes 1 16 Smokeless Tobacco: Never Comments:Started @ age 25 Alcohol Use Standard Drinks/Week Comments No 0 (1 standard drink = 0.6 oz pur e alcohol) Sex Assigned at Date Recorded Not on file Job Start Date Occupation Industry Not on file Not on file Not on file documented as of this encounter Plan of Treatment Not on file documented as of this encounter Visit Diagnoses Not on filedocumented in this encounter Care Teams Hr Receptionist Relationship Specialty Start Date End Date Nikki Alcantar MD [address] [place] [address] PCP - General 06/26/05 03/04/17 Michelle Norris MD [address] [place] [address] PCP - General Internal Medicine 03/05/17 03/16/21 [facility], Pcp [address] [place] [address] PCP - General Internal Medicine 03/17/21 05/04/21 Michelle Norris MD [address] [place], [place] [phone] PCP - General Internal Medicine 05/05/21 09/13/22 Rosetta Diamond MD [address] [place] [address] PCP - General Internal Medicine 09/14/22 documented as of this encounter
--- OUTSIDE RECORDS SUMMARY | 2024-11-28 02:19 | XMS_ITS | Encounter Summary ---
Author Organization [facility] Address [address] [place] [address] Care Team Providers Care Jump Roll Operator Name Role Phone Nikki Alcantar MD Primary Care Provider [phone] Michelle Norris MD Primary Care Provider Unavail [facility] Primary Care Provider [facility] Michelle Norris MD Primary Care Provider Unavail [facility] Rosetta Diamond MD Primary Care Provider + Encounter Details Date Type Department Care Team Description 05/06/2009 Hospital Medical Records [address] [place] [id number] Magdalena Boyd MD Social History Tobacco Use Types Packs/Day Years [...] on filedocumented in this encounter Care Teams Jump Roll Operator Relationship Specialty Start Date End Date Nikki Alcantar MD [address] [place] [address] PCP - General 06/26/05 03/04/17 Michelle Norris MD [address] [place] [address] PCP - General Internal Medicine 03/05/17 03/16/21 [facility], Pcp [address] [place] [address] PCP - General Internal Medicine 03/17/21 05/04/21 Michelle Norris MD [address] [place] [address] PCP - General Internal Medicine 05/05/21 09/13/22 Rosetta Diamond MD [address] [place] [address] PCP - General Internal Medicine 09/14/22 documented as of this encounter
--- OUTSIDE RECORDS SUMMARY | 2024-11-28 02:19 | XMS_ITS | Encounter Summary ---
Author Organization [facility] Address [address] [place] [address] Care Team Providers Care Traffic Lieutenant Name Role Phone Michelle Norris MD Primary Care Provider [facility] Michelle Norris MD Primary Care Provider Unavail able Rosetta Diamond MD Primary Care Provider + Encounter Details Date Type Department Care Team Description 03/06/2019 Hospital Medical Records [address] [place] [address] Marlen Grande Social History Tobacco Use Types Packs/Day Years [...] on filedocumented in this encounter Care Teams Traffic Lieutenant Relationship Specialty Start Date End Date Michelle Norris MD PCP - General Internal Medicine 03/05/17 03/16/21 [facility], Pcp PCP - General Internal Medicine 03/17/21 05/04/21 Michelle Norris MD PCP - General Internal Medicine 05/05/21 09/13/22 Rosetta Diamond MD [address] [place] [address] PCP - General Internal Medicine 09/14/22 documented as of this encounter
--- OUTSIDE RECORDS SUMMARY | 2024-11-28 02:19 | XMS_ITS | Encounter Summary ---
Author Organization [facility] Address [address] [place] [address] Care Team Providers Care Property Developer Name Role Phone Michelle Norris MD Primary Care Provider Unavail able [facility], Pcp Primary Care Provider Unavailabl Michelle Lagos MD Primary Care Provider Unavail able Rosetta Diamond MD Primary Care Provider + Reason for Visit * Reason Comments E-prescribe Rx Request Encounter Details Date Type Department Care Team Description 01/02/2019 Refill OBGYN - [place] [address] [place] [address] Chel Stapleton CNM [address] [place] [address] E-prescribe Rx Request Social History Tobacco Use Types Packs/Day Years [...] on file documented as of this encounter Miscellaneous Notes * Telephone Encounter - Eliana Jennings M.A. - 01/03/2019 1:45 PM EDT Please review-MO * Telephone Encounter - Nyla Ruby - 01/03/2019 1:14 PM EDT WHEN WAS THE PATIENTS LAST ANNUAL GLACING MACHINE TENDER EXAM? 08/29/18 Does patient have an upcoming appointment? No to early to schedule appt (THE MEDICATION REQUESTED IS ON THE MED LIST ABOVE) Did you check the Pharmacy information above?: YES Indicate how soon the patient needs the script: BY THE END OF THE DAY Patient would like script to be: E-PRESCRIBED/FAXED TO PHARMACY Is the doctor here today?: YES Can the message wait until the doctor returns?: NO Has the patient been told that the prescription will not be filled until the end of the day? NO [place] / [place] / Product Type: MED[place]ARE [id number] documented in this encounter Plan of Treatment Not on file documented as of this encounter Visit Diagnoses Diagnosis Encounter for initial prescription of contraceptive pills General counseling for prescription of oral contraceptives documented in this encounter Care Teams Property Developer Relationship Specialty Start Date End Date Michelle Norris MD PCP - General Internal Medicine 03/05/17 03/16/21 [facility] PCP - General Internal Medicine 03/17/21 05/04/21 Michelle Norris MD PCP - General Internal Medicine 05/05/21 09/13/22 Rosetta Diamond MD [address] [place] [address] PCP - General Internal Medicine 09/14/22 documented as of this encounter
--- OUTSIDE RECORDS SUMMARY | 2024-11-28 02:19 | XMS_ITS | Encounter Summary ---
Author Organization [facility] Address [address] [place] [address] Care Team Providers Care Pharmacy Messenger Name Role Phone Nikki Alcantar MD Primary Care Provider [phone] Michelle Norris MD Primary Care Provider Unavail [facility] Primary Care Provider [facility] Michelle Norris MD Primary Care Provider [facility]avail [facility] Rosetta Diamond MD Primary Care Provider + Encounter Details Date Type Department Care Team Description 03/13/2016 Hospital Medical Records [address] [place] [id number] Carlos Landrum Social History Tobacco Use Types Packs/Day Years [...] on filedocumented in this encounter Care Teams Pharmacy Messenger Relationship Specialty Start Date End Date Nikki Alcantar MD [address] [place] [address] PCP - General 06/26/05 03/04/17 Michelle Norris MD [address] [place] [address] PCP - General Internal Medicine 03/05/17 03/16/21 [facility], Pcp [address] [place] [address] PCP - General Internal Medicine 03/17/21 05/04/21 Michelle Norris MD [address] [place] [address] PCP - General Internal Medicine 05/05/21 09/13/22 Rosetta Diamond MD [address] [place] [address] PCP - General Internal Medicine 09/14/22 documented as of this encounter
--- OUTSIDE RECORDS SUMMARY | 2024-11-28 02:19 | XMS_ITS | Encounter Summary ---
Author Organization [facility] Address [address] [place] [address] Care Team Providers Care Front Office Associate Name Role Phone Michelle Norris MD Primary Care Provider Unavail able [facility]placed [facility] Primary Care Provider Michelle Abdi MD Primary Care Provider Unavail able Rosetta Diamond MD Primary Care Provider + Reason for Visit * Reason Onset Date Comments TEST RESULTS 06/10/2019 result notes Encounter Details Date Type Department Care Team Description 06/10/2019 Telephone Adult Medicine [address] [address] Lona Rowell PA-C TEST RESULTS (result notes) Social History Tobacco Use Types Packs/Day Years [...] encounter Miscellaneous Notes * Telephone Encounter - Nicki Santa M.A. - 06/12/2019 1:56 PM EDT [facility] at [facility] advised and they confirmed her appointment on 06-24-19 w/. * Telephone Encounter - Linda Torres M.A. - 06/11/2019 2:03 PM EDT Left message for patient to return call. * Telephone Encounter - Radha Robles - 06/11/2019 11:20 AM EDT Patient returning phone call [phone] * Telephone Encounter - Linda Torres M.A. - 06/10/2019 2:47 PM EDT Left message for patient to return call. Please call patient and inform her that her thyroid function testing does look normal. No further follow-up is indicated at this time. documented in this encounter Plan of Treatment Not on file documented as of this encounter Visit Diagnoses Not on filedocumented in this encounter Care Teams Front Office Associate Relationship Specialty Start Date End Date Michelle Norris MD PCP - General Internal Medicine 03/05/17 03/16/21 [facility] PCP - General Internal Medicine 03/17/21 05/04/21 Michelle Norris MD PCP - General Internal Medicine 05/05/21 09/13/22 Rosetta Diamond MD [address] [place] [address] PCP - General Internal Medicine 09/14/22 documented as of this encounter
--- OUTSIDE RECORDS SUMMARY | 2024-11-28 02:19 | XMS_ITS | Encounter Summary ---
Author Organization [facility] Address [address] [place] [address] Care Team Providers Care Line Haul Owner Operator Name Role Phone Nikki Alcantar MD Primary Care Provider [phone] Michelle Norris MD Primary Care Provider Unavail [facility] Primary Care Provider [facility] Michelle Norris MD Primary Care Provider Unavail [facility] Rosetta Diamond MD Primary Care Provider + Encounter Details Date Type Department Care Team Description 10/15/2008 Hospital Medical Records [address] [place] [address] Hank Enciso Social History Tobacco Use Types Packs/Day Years [...] on filedocumented in this encounter Care Teams Line Haul Owner Operator Relationship Specialty Start Date End Date Nikki Alcantar MD [address] [place] [address] PCP - General 06/26/05 03/04/17 Michelle Norris MD [address] [place] [address] PCP - General Internal Medicine 03/05/17 03/16/21 [facility], Pcp [address] [place] [address] PCP - General Internal Medicine 03/17/21 05/04/21 Michelle Norris MD [address] [place] [address] [place] [address] PCP - General Internal Medicine 05/05/21 09/13/22 Rosetta Diamond MD [address] [place], [place] [phone] PCP - General Internal Medicine 09/14/22 documented as of this encounter
--- OUTSIDE RECORDS SUMMARY | 2024-11-28 02:19 | XMS_ITS | Encounter Summary ---
Author Organization [facility] Address [address] [place] [address] Care Team Providers Care Room Manager Name Role Phone Michelle Norris MD Primary Care Provider [facility] Michelle Lagos MD Primary Care Provider Unavail able Rosetta Diamond MD Primary Care Provider + Reason for Visit * Reason Onset Date Comments TEST RESULTS 06/12/2019 result notes Encounter Details Date Type Department Care Team Description 06/12/2019 Telephone Adult Medicine [address] [address] Lona Rowell PA-C TEST RESULTS (result notes) [...] encounter Miscellaneous Notes * Telephone Encounter - Linda Torres M.A. - 06/12/2019 9:55 AM EDT Spoke with patient she is aware of her results. Please call patient and inform her that her thyroid function testing does look normal. No further follow-up is indicated at this time. documented in this encounter Plan of Treatment Not on file documented as of this encounter Visit Diagnoses Not on filedocumented in this encounter Care Teams Room Manager Relationship Specialty Start Date End Date Michelle Norris MD PCP - General Internal Medicine 03/05/17 03/16/21 [facility], Pcp PCP - General Internal Medicine 03/17/21 05/04/21 Michelle Norris MD PCP - General Internal Medicine 05/05/21 09/13/22 Rosetta Diamond MD [address] [place] [address] PCP - General Internal Medicine 09/14/22 documented as of this encounter
--- OUTSIDE RECORDS SUMMARY | 2024-11-28 02:19 | XMS_ITS | Encounter Summary ---
Author Organization [facility] Address [address] [place] [address] Care Team Providers Care Motor Builder Assembler Name Role Phone Michelle Norris MD Primary Care Provider Unavail [facility], Pcp [facility] MD Primary Care Provider Unavail able Rosetta Diamond MD Primary Care Provider + Encounter Details Date Type Department Care Team Description 04/21/2019 Hospital Medical Records [address] [place] [id number] Ron Frausto Social History Tobacco Use Types Packs/Day Years [...] on filedocumented in this encounter Care Teams Motor Builder Assembler Relationship Specialty Start Date End Date Michelle Norris MD PCP - General Internal Medicine 03/05/17 03/16/21 [facility], Pcp PCP - General Internal Medicine 03/17/21 05/04/21 Michelle Norris MD PCP - General Internal Medicine 05/05/21 09/13/22 Rosetta Diamond MD [address] [place] [address] PCP - General Internal Medicine 09/14/22 documented as of this encounter
--- OUTSIDE RECORDS SUMMARY | 2024-11-28 02:19 | XMS_ITS | Encounter Summary ---
Author Organization [facility] Address [address] [place] [address] Care Team Providers Care Batch And Furnace Operator Name Role Phone Michelle Norris MD Primary Care Provider Unavail able [facility] Michelle Lagos MD Primary Care Provider Unavail able Rosetta Diamond MD Primary Care Provider + Reason for Visit * Reason Onset Date Comments VNA Call 05/19/2019 Encounter Details Date Type Department Care Team Description 05/19/2019 Telephone Adult Medicine [address] [address] Michelle Norris MD VNA Call Social History Tobacco Use Types Packs/Day Years [...] encounter Miscellaneous Notes * Telephone Encounter - Armaan Phillips L.P.N. - 05/19/2019 2:23 PM EDT Aleciaek with [facility] She is from [employer] no a VNA The are an outreach program for this patient the Will send a med list and discharge summary * Telephone Encounter - Deanna Oglesby - 05/19/2019 1:19 PM EDT VNA CALL Which VNA office is calling? [employer] Full name of caller: [facility] The caller is A nurse Is the caller at the patients home?: NO Reason for call: FYI: They will be faxing updated medication list and discharge summary Does caller need an urgent call back? NO Was CONTACT Telephone # obtained above?: YES Fax #: documented in this encounter Plan of Treatment Not on file documented as of this encounter Visit Diagnoses Not on filedocumented in this encounter Care Teams Batch And Furnace Operator Relationship Specialty Start Date End Date Michelle Norris MD PCP - General Internal Medicine 03/05/17 03/16/21 [facility] PCP - General Internal Medicine 03/17/21 05/04/21 Michelle Norris MD PCP - General Internal Medicine 05/05/21 09/13/22 Rosetta Diamond MD [address] [place] [id number] PCP - General Internal Medicine 09/14/22 documented as of this encounter
--- OUTSIDE RECORDS SUMMARY | 2024-11-28 02:19 | XMS_ITS | Encounter Summary ---
Author Organization [facility] Address [address] [place] [address] Care Team Providers Care Ticket Collector Name Role Phone Nikki Alcantar MD Primary Care Provider [phone] Michelle Norris MD Primary Care Provider Unavail [facility] Primary Care Provider [facility] Michelle Norris MD Primary Care Provider Unavail [facility] Rosetta Diamond MD Primary Care Provider + Encounter Details Date Type Department Care Team Description 03/28/2016 Hospital Medical Records [address] [place] [address] Social History Tobacco Use Types Packs/Day Years [...] on filedocumented in this encounter Care Teams Ticket Collector Relationship Specialty Start Date End Date Nikki Alcantar MD [address] [place] [address] PCP - General 06/26/05 03/04/17 Michelle Norris MD [address] [place] [address] PCP - General Internal Medicine 03/05/17 03/16/21 [facility], Pcp [address] [place] [address] PCP - General Internal Medicine 03/17/21 05/04/21 Michelle Norris MD [address] [place] [address] PCP - General Internal Medicine 05/05/21 09/13/22 Rosetta Diamond MD [address] [place] [address] PCP - General Internal Medicine 09/14/22 documented as of this encounter
--- OUTSIDE RECORDS SUMMARY | 2024-11-28 02:20 | XMS_ITS | Encounter Summary ---
Author Organization [facility] Address [address] [place] [address] Care Team Providers Care Student Ministry Pastor Name Role Phone Michelle Norris MD Primary Care Provider [facility]ail [facility], Pcp [facility] MD Primary Care Provider Unavail able Rosetta Diamond MD Primary Care Provider + Encounter Details Date Type Department Care Team Description 03/25/2018 Business Doc Medical Records [address] [place] [id number] Abstract, Provider Social History Tobacco Use Types Packs/Day Years Used Date Smoking Tobacco: Every Day Cigarettes 0.5 16 Smokeless Tobacco: Never Comments:Started @ age [...] on filedocumented in this encounter Care Teams Student Ministry Pastor Relationship Specialty Start Date End Date Michelle Norris MD PCP - General Internal Medicine 03/05/17 03/16/21 [facility], Pcp PCP - General Internal Medicine 03/17/21 05/04/21 Michelle Norris MD PCP - General Internal Medicine 05/05/21 09/13/22 Rosetta Diamond MD [address] [place] [address] PCP - General Internal Medicine 09/14/22 documented as of this encounter
--- OUTSIDE RECORDS SUMMARY | 2024-11-28 02:20 | XMS_ITS | Encounter Summary ---
Author Organization [facility] Address [address] [place] [address] Care Team Providers Care Motion Picture Equipment Supervisor Name Role Phone Nikki Alcantar MD Primary Care Provider [phone] Michelle Norris MD Primary Care Provider Unavail [facility] Primary Care Provider [facility] Michelle Norris MD Primary Care Provider Unavail [facility] Rosetta Diamond MD Primary Care Provider + Encounter Details Date Type Department Care Team Description 11/20/2015 Hospital Medical Records [address] [place] [id number] Sourav Lucas Social History Tobacco Use Types Packs/Day Years [...] on filedocumented in this encounter Care Teams Motion Picture Equipment Supervisor Relationship Specialty Start Date End Date Nikki Alcantar MD [address] [place] [address] PCP - General 06/26/05 03/04/17 Michelle Norris MD [address] [place] [address] PCP - General Internal Medicine 03/05/17 03/16/21 [facility], Pcp [address] [place] [address] PCP - General Internal Medicine 03/17/21 05/04/21 Michelle Norris MD [address] [place] [address] [place] [address] PCP - General Internal Medicine 05/05/21 09/13/22 Rosetta Diamond MD [address] [place], [place] [phone] PCP - General Internal Medicine 09/14/22 documented as of this encounter
--- OUTSIDE RECORDS SUMMARY | 2024-11-28 02:20 | XMS_ITS | Encounter Summary ---
Author Organization [facility] Address [address] [place] [address] Care Team Providers Care Canvas Repairer Name Role Phone Nikki Alcantar MD Primary Care Provider [phone] Michelle Norris MD Primary Care Provider Unavail [facility] Primary Care Provider [facility] Michelle Norris MD Primary Care Provider Unavail [facility] Rosetta Diamond MD Primary Care Provider + Encounter Details Date Type Department Care Team Description 07/31/2012 Strand Buncher Fine Wire Report Medical Records [address] [place] [address] Julio Paredes MD Social History Tobacco Use Types Packs/Day Years Used Date Smoking Tobacco: Every Day Cigarettes 1 Smokeless Tobacco: Current Comments:Started @ age 32 Alcohol Use Standard Drinks/Week Comments No 0 [...] on filedocumented in this encounter Care Teams Canvas Repairer Relationship Specialty Start Date End Date Nikki Alcantar MD [address] [place] [address] PCP - General 06/26/05 03/04/17 Michelle Norris MD [address] [place] [address] PCP - General Internal Medicine 03/05/17 03/16/21 [facility], Pcp [address] [place] [address] PCP - General Internal Medicine 03/17/21 05/04/21 Michelle Norris MD [address] [place] [address] [place] [address] PCP - General Internal Medicine 05/05/21 09/13/22 Rosetta Diamond MD [address] [place], [place] [phone] PCP - General Internal Medicine 09/14/22 documented as of this encounter
--- OUTSIDE RECORDS SUMMARY | 2024-11-28 02:20 | XMS_ITS | Encounter Summary ---
Author Organization [facility] Address [address] [place] [address] Care Team Providers Care Durable Medical Equipment Technician Name Role Phone Michelle Norris MD Primary Care Provider [facility]ail [facility], Pcp [facility] Michelle Norris MD Primary Care Provider Unavail able Rosetta Diamond MD Primary Care Provider + Encounter Details Date Type Department Care Team Description 04/15/2018 Hospital Medical Records [address] [place] [address] Social History Tobacco Use Types Packs/Day Years [...] on filedocumented in this encounter Care Teams Durable Medical Equipment Technician Relationship Specialty Start Date End Date Michelle Norris MD PCP - General Internal Medicine 03/05/17 03/16/21 [facility], Pcp PCP - General Internal Medicine 03/17/21 05/04/21 Michelle Norris MD PCP - General Internal Medicine 05/05/21 09/13/22 Rosetta Diamond MD [address] [place] [address] PCP - General Internal Medicine 09/14/22 documented as of this encounter
--- OUTSIDE RECORDS SUMMARY | 2024-11-28 02:20 | XMS_ITS | Encounter Summary ---
Author Organization [facility] Address [address] [place] [address] Care Team Providers Care Station Operator Name Role Phone Nikki Alcantar MD Primary Care Provider [phone] Michelle Norris MD Primary Care Provider Unavail [facility] Primary Care Provider [facility] Michelle Norris MD Primary Care Provider Unavail [facility] Rosetta Diamond MD Primary Care Provider + Encounter Details Date Type Department Care Team Description 10/24/2007 Hospital Medical Records [address] [place] [id number] [facility] Tobacco Use Types Packs/Day Years [...] on filedocumented in this encounter Care Teams Station Operator Relationship Specialty Start Date End Date Nikki Alcantar MD [address] [place] [address] PCP - General 06/26/05 03/04/17 Michelle Norris MD [address] [place] [address] PCP - General Internal Medicine 03/05/17 03/16/21 [facility], Pcp [address] [place] [address] PCP - General Internal Medicine 03/17/21 05/04/21 Michelle Norris MD [address] [place] [address] PCP - General Internal Medicine 05/05/21 09/13/22 Rosetta Diamond MD [address] [place] [phone] PCP - General Internal Medicine 09/14/22 documented as of this encounter
--- OUTSIDE RECORDS SUMMARY | 2024-11-28 02:20 | XMS_ITS | Encounter Summary ---
Author Organization [facility] Address [address] [place] [address] Care Team Providers Care Brass Instrument Repair Technician Name Role Phone Nikki Alcantar MD Primary Care Provider [phone] Michelle Norris MD Primary Care Provider Unavail [facility] Primary Care Provider [facility] Michelle Norris MD Primary Care Provider Unavail [facility] Rosetta Diamond MD Primary Care Provider + Encounter Details Date Type Department Care Team Description 10/10/2012 Hospital Medical Records [address] [place] [id number] Miles Shah MD Social History Tobacco Use Types Packs/Day [...] on filedocumented in this encounter Care Teams Brass Instrument Repair Technician Relationship Specialty Start Date End Date Nikki Alcantar MD [address] [place] [address] PCP - General 06/26/05 03/04/17 Michelle Norris MD [address] [place] [address] PCP - General Internal Medicine 03/05/17 03/16/21 Count Includes [facility], Pcp [address] [place] [address] PCP - General Internal Medicine 03/17/21 05/04/21 Michelle Norris MD [address] [place] [address] PCP - General Internal Medicine 05/05/21 09/13/22 Rosetta Diamond MD [address] [place] [phone] PCP - General Internal Medicine 09/14/22 documented as of this encounter
--- OUTSIDE RECORDS SUMMARY | 2024-11-28 02:20 | XMS_ITS | Encounter Summary ---
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 Health Specialist [facility] (Tel): [phone] / : [phone] documented in this encounter Plan of Treatment Pending Results Name Type Priority Associated Diagnoses Date /Time POC , urine manually resulted Point of Care Testing STAT 11/02/2024 9:17 PM EST Scheduled Orders Name Type Priority Associated Diagnoses Orde r Schedule POC , urine manually resulted Point of Care Testing STAT Once for 1 Occurrences starting 11/02/2024 until 11/02/2024 documented as of this encounter Procedures Procedure Name Priority Date/Time Associated Diagnosis Comments TIGER TOP URINE TUBE Routine 11/02/2024 9:06 PM EST DRUG ABUSE SCREEN 8A PANEL, URINE STAT 11/02/2024 9:06 PM EST BUPRENORPHINE SCREEN, URINE STAT 11/02/2024 9:06 PM EST METHADONE SCREEN, URINE STAT 11/02/2024 9:06 PM EST EXTRA TUBES Routine 11/02/2024 9:06 PM EST PHENCYCLIDINE, URINE STAT 11/02/2024 9:06 PM EST documented in this encounter Results * [place] top urine tube (11/02/2024 9:06 PM EST) Pathologist [facility] Extra Tube Hold for add-ons. 11/03/2024 12:[address] [facility] Comment:Auto resulted. Urine Urine specimen obtained by clean catch procedure / Unknown 11/02/2024 9:06 PM EST 11/02/2024 10:06 PM EST Jimmy Alfonso MD LAB URINE ORDERABLES Final Resu lt Performing Organization Address [facility]/ZIP Co de Phone Number [facility] [address] [place] [address], [place] [phone] * Methadone, urine (11/02/2024 9:06 PM EST) Pathologist [facility] Methadone Screen, Urine Negative Negative LAB CHEMISTRY METHOD 11/02/2024 10:[address] [facility] Comment: Assay cutoff 300 ng/mL Semi-quantitative assay for screening purposes only. Unconfirmed screening result should not be used for non-medical purposes. *ALTERNATE METHOD CONFIRMATION DONE UPON REQUEST ONLY* Urine Urine specimen obtained by clean catch procedure / Unknown Non-blood Collection / Unknown 11/02/2024 9:06 PM EST 11/02/2024 10:05 PM EST Jimmy Alfonso MD LAB URINE ORDERABLES Final Resu lt Performing Organization Address [facility]/ZIP Co de Phone Number [facility] [address] [place] [address], [place] [phone] * Phencyclidine, urine (11/02/2024 9:06 PM EST) Pathologist [facility] PCP Scrn, Ur Negative Negative LAB CHEMISTRY METHOD 11/02/2024 10:[address] [facility] Comment: Assay cutoff 25 ng/mL Semi-quantitative assay for screening purposes only. Unconfirmed screening result should not be used for non-medical purposes. *ALTERNATE METHOD CONFIRMATION DONE UPON REQUEST ONLY* Urine Urine specimen obtained by clean catch procedure / Unknown Non-blood Collection / Unknown 11/02/2024 9:06 PM EST 11/02/2024 10:05 PM EST Jimmy Alfonso MD LAB URINE ORDERABLES Final Resu lt Performing Organization Address [facility] de Phone Number [facility] [address] [place] [address], * Buprenorphine screen, urine (11/02/2024 9:06 PM EST) Buprenorphine Screen Urine Negative Negative LAB CHEMISTRY METHOD 11/02/2024 10:[address] [facility] Urine Urine specimen obtained by clean catch procedure / Unknown Non-blood Collection / Unknown 11/02/2024 9:06 PM EST 11/02/2024 10:[address] [facility] - 11/02/2024 10:43 PM EST Assay cutoff 5 ng/mL Semi-quantitative assay for screening purposes only. Unconfirmed screening result should not be used for non-medical purposes. *ALTERNATE METHOD CONFIRMATION DONE UPON REQUEST ONLY* Jimmy Alfonso MD LAB URINE ORDERABLES Final Resu lt Performing Organization Address [facility] de Phone Number [facility] [address] [place] [address], [place] [phone] * Drug abuse screen 8a panel, urine (11/02/2024 9:06 PM EST) Amphetamine Screen, Ur Negative Negative LAB CHEMISTRY METHOD 11/02/2024 10:[address] [facility] Comment:Certain OTC medicati ons containing ephedrine, phenylephrine, pseudoephedrine and phenylpropanolamine can cause false positive results. Barbiturate Screen, Ur Negative Negative LAB CHEMISTRY METHOD 11/02/2024 10:43 PM [facility] Benzodiazepine Screen, Ur Negative Negative LAB CHEMISTRY METHOD 11/02/2024 10:43 PM [facility] Cocaine Screen, Ur Negative Negative LAB CHEMISTRY METHOD 11/02/2024 10:43 PM [facility] Opiate Screen, Ur Negative Negative LAB CHEMISTRY METHOD 11/02/2024 10:43 PM [facility] Cannabinoid (THC) Screen, Ur Negative Negative LAB CHEMISTRY METHOD 11/02/2024 10:43 PM [facility] Comment:Specimens from patie nts taking pantoprazole sodium (Protonix) have been shown to produce false positive results. Oxycodone Screen, Ur Negative Negative LAB CHEMISTRY METHOD 11/02/2024 10:43 PM [facility] Fentanyl, Ur Negative Negative LAB CHEMISTRY METHOD 11/02/2024 10:43 PM [facility] Urine Urine specimen obtained by clean catch procedure / Unknown Non-blood Collection / Unknown 11/02/2024 9:06 PM EST 11/02/2024 10:05 PM EST [facility] - 11/02/2024 10:43 PM EST Assay cutoffs: Amphetamines ? 1000 ng/mL Barbiturates ?200 ng/mL Benzodiazepines ?? 200 ng/mL Cocaine ? 300 ng/mL Fentanyl ?1 ng/mL Opiates ? 300 ng/mL Oxycodone ? 100 ng/mL THC ?50 ng/mL Semi-quantitative assay for screening purposes only. Unconfirmed screening result should not be used for non-medical purposes. *ALTERNATE METHOD CONFIRMATION DONE UPON REQUEST ONLY* us Jimmy Alfonso MD LAB URINE ORDERABLES Final Resu lt [facility] [address] [place] [address], documented in this encounter Visit Diagnoses Diagnosis Auditory hallucinations- Primary Hallucinations Posttraumatic stress disorder Borderline personality disorder (CMS/HCC) Borderline personality disorder documented in this encounter Administered Medications Inactive Administered Medications - up to 3 most recent administrations Medication Order MAR Action Action Date Dose Rate Site ascorbic acid (VITAMIN C) tablet 500 mg 500 mg, oral, 2 times daily, First dose on 11/02/24 at 2116 Given 11/02/2024 9:57 PM EST 500 mg atorvastatin (LIPITOR) tablet 10 mg 10 mg, oral, Nightly, First dose on 11/02/24 at 2116 Given 11/02/2024 9:57 PM EST 10 mg benztropine (COGENTIN) tablet 1 mg 1 mg, oral, 2 times daily, First dose on 11/02/24 at 2116 Given 11/02/2024 9:56 PM EST 1 mg busPIRone (BUSPAR) tablet 10 mg 10 mg, oral, 2 times daily, First dose on 11/02/24 at 2116 Given 11/02/2024 9:56 PM EST 10 mg cloZAPine (CLOZARIL) tablet 100 mg 100 mg, oral, Nightly, First dose on 11/02/24 at 2116, Has the home dose of cloZAPine and last date/time taken been confirmed? Yes, Has there been a break in cloZAPine therapy GREATER than OR equal to 2 days? No Given 11/02/2024 9:56 PM EST 100 mg haloperidoL (HALDOL) tablet 5 mg 5 mg, oral, 3 times daily, First dose on 11/02/24 at 2116 Given 11/02/2024 9:56 PM EST 5 mg LORazepam (ATIVAN) tablet 0.5 mg 0.5 mg, oral, 2 times daily PRN, anxiety, Starting on 11/02/24 at 2112 Given 11/02/2024 9:57 PM EST 0.5 mg mirtazapine (REMERON) tablet 15 mg 15 mg, oral, Nightly, First dose on 11/02/24 at 2116 Given 11/02/2024 9:57 PM EST 15 mg montelukast (SINGULAIR) tablet 10 mg 10 mg, oral, Nightly, First dose on 11/02/24 at 2116 Given 11/02/2024 9:57 PM EST 10 mg prazosin (MINIPRESS) capsule 4 mg 4 mg, oral, Nightly, First dose on 11/02/24 at 2116 Given 11/02/2024 9:56 PM EST 4 mg documented in this encounter Active and Recently Administered Medications Times are shown in EST. Scheduled Medication Order 10/31/2024 11/01/2024 11/02/2024 amLODIPine (NORVASC) tablet 5 mg 5 mg, oral, Daily, First dose on 11/03/24 at 0900 ascorbic acid (VITAMIN C) tablet 500 mg 500 mg, oral, 2 times daily, First dose on 11/02/24 at 2116 2156 (Given - Provid er: Rudi Ruiz RN) atorvastatin (LIPITOR) tablet 10 mg 10 mg, oral, Nightly, First dose on 11/02/24 at 2116 2156 (Given - Provid er: Rudi Ruiz RN) benztropine (COGENTIN) tablet 1 mg 1 mg, oral, 2 times daily, First dose on 11/02/24 at 2116 2155 (Given - Provid er: Rudi Ruiz RN) busPIRone (BUSPAR) tablet 10 mg 10 mg, oral, 2 times daily, First dose on 11/02/24 at 2116 2155 (Given - Provid er: Rudi Ruiz RN) cloZAPine (CLOZARIL) tablet 100 mg 100 mg, oral, Nightly, First dose on 11/02/24 at 2116, Has the home dose of cloZAPine and last date/time taken been confirmed? Yes, Has there been a break in cloZAPine therapy GREATER than OR equal to 2 days? No 2155 (Given - Provid er: Rudi Ruiz RN) famotidine (PEPCID) tablet 20 mg 20 mg, oral, Daily, First dose on Sun11/03/24 at 0900 FLUoxetine (PROzac) capsule 80 mg 80 mg, oral, Daily, First dose on Sun11/03/24 at 0900 fluPHENAZine (PROLIXIN) tablet 15 mg 15 mg, oral, 2 times daily, First dose on 11/02/24 at 2116 2205 (Not Given - Pr ovider: Rudi Ruiz RN - Reason: Medication not available) haloperidoL (HALDOL) tablet 5 mg 5 mg, oral, 3 times daily, First dose on 11/02/24 at 2116 2155 (Given - Provid er: Rudi Ruiz RN) metFORMIN (GLUCOPHAGE) tablet 500 mg 500 mg, oral, 2 times daily with meals, First dose on Sun11/03/24 at 0800 mirtazapine (REMERON) tablet 15 mg 15 mg, oral, Nightly, First dose on 11/02/24 at 2116 2156 (Given - Provid er: Rudi Ruiz RN) montelukast (SINGULAIR) tablet 10 mg 10 mg, oral, Nightly, First dose on 11/02/24 at 2116 2156 (Given - Provid er: Rudi Ruiz RN) nystatin (MYCOSTATIN) cream Topical, 2 times daily, First dose on 11/02/24 at 2116, For 27 days 2205 (Not Given - Pr ovider: Rudi Ruiz RN - Reason: Other) pantoprazole (PROTONIX) EC tablet 40 mg 40 mg, oral, Every morning before breakfast, First dose on Sun11/03/24 at 0700, Do not crush, chew, or split. prazosin (MINIPRESS) capsule 4 mg 4 mg, oral, Nightly, First dose on 11/02/24 at 2116 2155 (Given - Provid er: Rudi Ruiz RN) PRN Medication Order 10/31/2024 11/01/2024 11/02/2024 albuterol HFA (PROAIR HFA ; PROVENTIL HFA ; VENTOLIN HFA) 90 mcg/actuation inhaler 2 puff 2 puff, inhalation, Every 4 hours PRN, wheezing, Starting on 11/02/24 at 2111 ibuprofen (ADVIL,MOTRIN) tablet 600 mg 600 mg, oral, Every 6 hours PRN, mild pain, for pain, Starting on Sun11/02/24 at 2112, Administer with food or milk to decrease GI upset lactulose (CHRONULAC) solution 20 g 20 g, oral, Daily PRN, constipation, Starting on 11/02/24 at 2112 LORazepam (ATIVAN) tablet 0.5 mg 0.5 mg, oral, 2 times daily PRN, anxiety, Starting on 11/02/25 at 2112 2156 (Given - Provid er: Rudi Ruiz RN) naproxen (NAPROSYN) tablet 250 mg 250 mg, oral, 2 times daily PRN, mild pain, Starting on 11/02/24 at 2112 temazepam (RESTORIL) capsule 15 mg 15 mg, oral, Nightly PRN, sleep, if awake at 2am., Starting on 11/02/24 at 2113, HAZARDOUS Drug Precautions - Low Risk (Category A/NIOSH Group 3) Reproductive Risk Only: - Single pair of ASTM standard D6978 certified chemotherapy gloves - Eye protection (goggles or face shield) required only with a potential for facial contact (i.e. concern for spitting or vomiting of the dose during or after administration) - Staff at reproductive risk (actively trying to conceive, or may be become , and ): chemo certified gown and an N95 respirator required when crushing meds (crushing of tabs allowed only in closed pouches) or opening of capsules only for allowable dosage forms documented in this encounter Orders Medications Ordered That Dionisio ht Not Have Been Administered Count Last Ordered Date First Ordered Date albuterol HFA (PROAIR HFA ; PROVENTIL HFA ; VENTOLIN HFA) 90 mcg/actuation inhaler 2 puff 1 11/02/2024 amLODIPine (NORVASC) tablet 5 mg 11/02/19 25 famotidine (PEPCID) tablet 20 mg 11/02/19 25 FLUoxetine (PROzac) capsule 80 mg 025 fluPHENAZine (PROLIXIN) tablet 15 mg 10/15 ibuprofen (ADVIL,MOTRIN) tablet 600 mg lactulose (CHRONULAC) solution 20 g 11/02 metFORMIN (GLUCOPHAGE) tablet 500 mg 10/15 naproxen (NAPROSYN) tablet 250 mg 025 nystatin (MYCOSTATIN) cream 11/02/2024 pantoprazole (PROTONIX) EC tablet 40 mg 1 0 11/02/2024 temazepam (RESTORIL) capsule 15 mg 2024 Consult Count Last Ordered Date First Orde red Date IP CONSULT TO ELECTRIC MILKERS INSTALLER 1 11/02/2024 documented in this encounter Care Teams Manager Heavy Equipment Relationship Specialty Start Date End Date AlmaPiyushJason [address] [place], [place] [id number] PCP - General 09/08/24 documented as of this encounter
--- OUTSIDE RECORDS SUMMARY | 2024-11-28 02:20 | XMS_ITS | Encounter Summary ---
Author Organization [facility] Address [address] [place] [address] Care Team Providers Care Lien Searcher Name Role Phone Michelle Norris MD Primary Care Provider Unavail able [facility], Pcp [facility] Norris MD Primary Care Provider Unavail able Rosetta Diamond MD Primary Care Provider + Encounter Details Date Type Department Care Team Description 01/29/2018 Release of Information Medical Records [address] [place] [id number] Abstract, Provider Social History Tobacco Use Types [...] on filedocumented in this encounter Care Teams Lien Searcher Relationship Specialty Start Date End Date Michelle Norris MD PCP - General Internal Medicine 03/05/17 03/16/21 [facility], Pcp PCP - General Internal Medicine 03/17/21 05/04/21 Michelle Norris MD PCP - General Internal Medicine 05/05/21 09/13/22 Rosetta Diamond MD [address] [place] [id number] PCP - General Internal Medicine 09/14/22 documented as of this encounter
--- OUTSIDE RECORDS SUMMARY | 2024-11-28 02:20 | XMS_ITS | Encounter Summary ---
Author Organization [facility] Address [address] [place] [address] Care Team Providers Care Wet End Supervisor Name Role Phone Nikki Alcantar MD Primary Care Provider [phone] Michelle Norris MD Primary Care Provider Unavail [facility], [facility] Primary Care Provider [facility] Michelle Norris MD Primary Care Provider [facility]avail [facility] Rosetta Diamond MD Primary Care Provider + Encounter Details Date Type Department Care Team Description 11/30/2015 Hospital Medical Records [address] [place] [id number] Social History Tobacco Use Types Packs/Day Years [...] on filedocumented in this encounter Care Teams Wet End Supervisor Relationship Specialty Start Date End Date Nikki Alcantar MD [address] [place] [phone] PCP - General 06/26/05 03/04/17 Michelle Norris MD [address] [place] [id number] PCP - General Internal Medicine 03/05/17 03/16/21 [facility], Pcp [address] [place] [id number] PCP - General Internal Medicine 03/17/21 05/04/21 Michelle Norris MD [address] [place] [address] [id number] PCP - General Internal Medicine 05/05/21 09/13/22 Rosetta Diamond MD [address] [place] [address] KARTIK CHEN [id number] PCP - General Internal Medicine 09/14/22 documented as of this encounter
--- OUTSIDE RECORDS SUMMARY | 2024-11-28 02:20 | XMS_ITS | Encounter Summary ---
Author Organization [facility] Address [address] [place] [address] Care Team Providers Care Supervisory Air Intercept Controller Name Role Phone Nikki Alcantar MD Primary Care Provider [phone] Mcihelle Norris MD Primary Care Provider Unavail [facility] Primary Care Provider [facility] Michelle Norris MD Primary Care Provider Unavail [facility] Rosetta Diamodn MD Primary Care Provider + Encounter Details Date Type Department Care Team Description 12/22/2015 Hospital Medical Records [address] [place] [id number] [place] Social History Tobacco Use Types [...] on filedocumented in this encounter Care Teams Supervisory Air Intercept Controller Relationship Specialty Start Date End Date Nikki Alcantar MD [address] [place] [id number] PCP - General 06/26/05 03/04/17 Michelle Norris MD [address] [place] [id number] PCP - General Internal Medicine 03/05/17 03/16/21 [facility], Pcp [address] [place] [address] [phone] PCP - General Internal Medicine 03/17/21 05/04/21 Michelle Norris MD [address] [place] [address] [phone] PCP - General Internal Medicine 05/05/21 09/13/22 Rosetta Diamond MD [address] [place] [phone] PCP - General Internal Medicine 09/14/22 documented as of this encounter
--- OUTSIDE RECORDS SUMMARY | 2024-11-28 02:20 | XMS_ITS | Encounter Summary ---
Author Organization [facility] Address [address] [place] [address] Care Team Providers Care Division Officer Weapons Department Name Role Phone Michelle Norris MD Primary Care Provider [facility] [place] [facility] Michelle Lagos MD Primary Care Provider Unavail able Rosetta Diamond MD Primary Care Provider + Reason for Visit * Reason Onset Date Comments Call From Hospital 06/18/2018 Encounter Details Date Type Department Care Team Description 06/18/2018 Telephone Adult Medicine [address] [phone] Michelle Norris MD Call From Hospital Social History Tobacco Use Types Packs/Day Years [...] encounter Miscellaneous Notes * Telephone Encounter - Yanira Renee - 06/18/2018 10:12 AM EDT Caller requesting call back from provider: Is the caller the patient? NO If caller is not the patient, what is the callers name? Aurea Callers relationship to patient? [facility] If person calling is not the patient themselves, is there a verbal release in FYI or permanent comments for this person: NO Reason for call back: FYI, wants to inform Dr Griffiths that [facility]. Caller offered to speak with the nurse for assistance: YES Response: Patient offered to speak with nurse for assistance and patient agreed. Message forwarded to nurse. documented in this encounter Plan of Treatment Not on file documented as of this encounter Visit Diagnoses Not on filedocumented in this encounter Care Teams Division Officer Weapons Department Relationship Specialty Start Date End Date Michelle Norris MD PCP - General Internal Medicine 03/05/17 03[place]16/[place] [facility] [place] - [place] Internal Medicine 03/17/21 05/04/21 Michelle Norris MD PCP - General Internal Medicine 05/05/21 09/13/22 Rosetta Diamond MD [address] [place] [id number] PCP - General Internal Medicine 09/14/22 documented as of this encounter
--- OUTSIDE RECORDS SUMMARY | 2024-11-28 02:20 | XMS_ITS | Encounter Summary ---
Author Organization [facility] Address [address] [place] [address] Care Team Providers Care Cardiac Rehabilitation Program Director Name Role Phone Maribel Marquez Primary Care Provider [phone] Reason for Visit * Reason Comments Shortness of Breath Started this morning . Encounter Details Date Type Department Care Team (Late st Contact Info) Description 11/25/2024 9:13 PM EST - 11/26/2024 5:21 AM EST Emergency [facility] Emergency [address] [place] [id number] Jimmy Alfonso MD [address] [place] [address] Alberto Massey MD [address] [place] [address] Shortness of breath (Primary Dx) Discharge Disposition: Home or Self Care Social [...] Sign Reading Time Taken Comments Blood Pressure 145/79 11/26/2024 3:33 AM EST Pulse 113 11/26/2024 3:33 AM EST Temperature 36.4 ??C (97.5 ??F) 11/26/2024 3:33 AM ES T Respiratory Rate 16 11/26/2024 3:33 AM EST Oxygen Saturation 96% 11/26/2024 3:33 AM EST Inhaled Oxygen Concentration - - Weight 117 kg (257 lb 15 oz) 11/25/2024 7:58 PM EST Height 167.6 cm (5' 5.98 ) 11/25/2024 7:58 PM ES T Body Mass Index 41.65 11/25/2024 7:58 PM EST documented in this encounter Functional Status * Are you deaf or do you have serious difficulty hearing? Answer Date of Assessment Author No 11/25/2024 9:44 PM Henrietta Ness RN * Are you blind or do you have serious difficulty seeing, even when wearing glasses? Answer Date of Assessment Author No 11/25/2024 9:44 PM EST Henrietta Wiggins RN * Do you have serious difficulty walking or climbing stairs? Answer Date of Assessment Author No 11/25/2024 9:44 PM Henrietta Ness RN * Do you have serious difficulty dressing or bathing? Answer Date of Assessment Author No 11/25/2024 9:44 PM Henrietta Ness RN * Because of a physical, mental, or emotional condition, do you have serious difficulty doing errandsalone such as visiting the doctor? Answer Date of Assessment Author No 11/25/2024 9:44 PM Henrietta Ness RN documented as of this encounter Mental Status * Because of a physical, mental, or emotional condition, do you have serious difficulty concentrating, remembering, or making decisions? (5 years old or older) Answer Entry Date Author No 11/25/2024 9:44 PM Henrietta Ness RN documented in this encounter Discharge Instructions * Discharge Instructions* Alberto Massey MD - 11/26/2024 5:07 AM EST Your testing today was reassuring. Your blood work shows no significant abnormalities. Your chest x-ray was normal. Your heart rate remains slightly elevated at this time. You should follow-up with your primary care physician in 1 to 2 days for a recheck of your vital signs. Alternate Tylenol and ibuprofen as needed for pain relief -Take 600 mg of ibuprofen every 6 hours (do not exceed 2400 mg in 24 hrs) -Take 1000 mg of Tylenol every 6 hours (do not exceed 4000 mg in 24 hrs) -Stack these on top of each other as discussed (ie: Ibuprofen at 9 AM, Tylenol at noon, ibuprofen at 3 PM, Tylenol at 6 PM, etc) Follow up with your primary provider. Call tomorrow for an appointment. Return to Emergency Department if your symptoms worsen, don't improve, or any other concerns. Get well soon! Thank you for coming to the [facility] Emergency Department today. Our entire team works together to provide you with the best care possible. Examination and treatment you received in the emergency department has been rendered on an EMERGENCY basis only. It is not intended to be a substitute for or an effort to provide complete medical care. You should follow-up with your primary care provider. Please report to your physician any new or remaining problems, because it is impossible to recognize and treat all elements of injury or illness in a single emergency department visit. In the event that you're unable to obtain a followup appointment in a timely fashion, OR you are not getting any better, OR you are getting worse, OR you develop any symptoms of concern, please return here immediately for further evaluation. The emergency department is open 24 hours a day, 7 days aweek. Your discharge report is based on information that was available when you were in the emergency department. * Attachments The following attachments cannot be sent through Care Everywhere. * SOB (Shortness of Breath) (Tajik) documented in this encounter Medications at Time [...] documented in this encounter Progress Notes * Alberto Massey MD - 11/26/2024 5:05 AM EST ED Course as of 11/26/24 0506 SunNov 25, [id number] And evaluated. History and physical exam performed. Patient with sinus tachycardia at 126, dueto shortness of breath/symptoms we will proceed with CTA to rule out PE. Also proceed with IV fluids with close reevaluation of the heart rate. Continue tomorrow in the ED. She denies any SI/HI. [AT] SunNov 26, 2024 0505 I, Dr. Massey, received this patient in signout at 12 AM. At time of signout awaiting reassessment. Patient has been sleeping throughout the night, she remained tachycardic but slowly came down into the 100-110 range. She is awake, alert, states she is feeling much better and like to be discharged home. She had a successful ambulation trial in the emergency department. She will be discharged homeand advised to follow-up as needed. Patient understands and agrees with this plan. [SM] ED Course User Index [AT] TIMI Figueroa [SM] Alberto Massey MD Clinical Impressions as of 11/26/24 0506 Shortness of breath Data Unavailable 1. Shortness of breath CANCELED: CT Angio Chest wo and/or w Contrast CANCELED: CT Angio Chest wo and/or w Contrast Procedures * Noemi Lin RN - 11/25/2024 7:55 PM EST BIBA, from [facility], per EMS, patient stating that she has been having SOB started this morning, also nausea, 1 episode of vomiting. Patient took her inhaler and Advair [facility]. No other complains. documented in this encounter Plan of Treatment Not on file documented as of this encounter Procedures Procedure Name Priority Date/Time Associated Diagnosis Comments ECG ANNOTATED 11/27/2024 URINALYSIS WITH REFLEX MICROSCOPIC AND CULTURE STAT 11/26/2024 5:10 AM EST NOLAND URINE CULTURE TUBE STAT 11/26/2024 5:10 AM EST DRUG ABUSE SCREEN 8A PANEL, URINE STAT 11/26/2024 5:10 AM EST URINALYSIS WITH REFLEX MICROSCOPIC AND CULTURE STAT 11/26/2024 5:10 AM EST TROPONIN I HIGH SENSITIVITY STAT 11/26/2024 12:01 AM EST B-TYPE NATRIURETIC PEPTIDE STAT 11/26/2024 12:01 AM EST D-DIMER STAT 11/25/2024 10:29 PM EST POCT GLUCOSE BLOOD Routine 11/25/2024 9: 40 PM EST XR CHEST 2 VIEWS STAT 11/25/2024 9:17 PM EST RESPIRATORY VIRUS PANEL MOLECULAR STUDY STAT 11/25/2024 8:24 PM EST CBC WITH AUTO DIFFERENTIAL STAT 11/25/2024 8:24 PM EST CBC AND DIFFERENTIAL STAT 11/25/2024 8:24 PM EST BASIC METABOLIC PANEL STAT 11/25/2024 8:24 PM EST ECG 12-LEAD STAT 11/25/2024 8:19 PM EST documented in this encounter Results * ECG-Annotated (11/27/2024) Provider Onbase ECG ORDERABLES Final Result * [place] urine culture tube (11/26/2024 5:10 AM EST) Extra Tube Hold for add-ons. 11/26/2024 7:01 AM EST [facility] Comment:Auto resulted. Urine Urine specimen obtained by clean catch procedure / Unknown Non-blood Collection / Unknown 11/26/2024 5:10 AM EST 11/26/2024 5:17 AM EST Alberto Massey MD LAB URINE ORDERABLES Final Resu lt [facility] [address] [place] [address], [place] [phone] * Urinalysis with reflex microscopic and culture (11/26/2024 5:10 AM EST) Specific [place] Urine 1.017 1.003 - 1.030 LAB URINALYSIS - AUTOMATED METHOD 11/26/2024 5:25 AM [facility] pH, Urine 5.5 5.0 - 8.0 pH LAB URINALYSIS - AUTOMATED METHOD 11/26/2024 5:25 AM [facility] Leukocytes, Urine Negative Negative LAB URINALYSIS - AUTOMATED METHOD 11/26/2024 5:25 AM [facility] Nitrite, Urine Negative Negative LAB URINALYSIS - AUTOMATED METHOD 11/26/2024 5:25 AM [facility] Protein, Urine Negative <=Trace mg/dL LAB URINALYSIS - AUTOMATED METHOD 11/26/2024 5:25 AM [facility] Glucose, Urine Negative Negative mg/dL LAB URINALYSIS - AUTOMATED METHOD 11/26/2024 5:25 AM [facility] Ketones, Urine Negative Negative mg/dL LAB URINALYSIS - AUTOMATED METHOD 11/26/2024 5:25 AM [facility] Urobilinogen, Urine 0.2 0.2 - 1.0 mg/dL LAB URINALYSIS - AUTOMATED METHOD 11/26/2024 5:25 AM [facility] Bilirubin, Urine Negative Negative LAB URINALYSIS - AUTOMATED METHOD 11/26/2024 5:25 AM [facility] Blood, Urine Negative Negative LAB URINALYSIS - AUTOMATED METHOD 11/26/2024 5:25 AM [facility] Urine Urine specimen obtained by clean catch procedure / Unknown Non-blood Collection / Unknown 11/26/2024 5:10 AM EST 11/26/2024 5:17 AM EST us Alberto Massey MD LAB URINE ORDERABLES Final Resu lt [facility] [address] [place] [address], * Drug abuse screen 8a panel, urine (11/26/2024 5:10 AM EST) Amphetamine Screen, Ur Negative Negative LAB CHEMISTRY METHOD 11/26/2024 5:41 AM [facility] Comment:Certain OTC medicati ons containing ephedrine, phenylephrine, pseudoephedrine and phenylpropanolamine can cause false positive results. Barbiturate Screen, Ur Negative Negative LAB CHEMISTRY METHOD 11/26/2024 5:41 AM [facility] Benzodiazepine Screen, Ur Negative Negative LAB CHEMISTRY METHOD 11/26/2024 5:41 AM [facility] Cocaine Screen, Ur Negative Negative LAB CHEMISTRY METHOD 11/26/2024 5:41 AM [facility] Opiate Screen, Ur Negative Negative LAB CHEMISTRY METHOD 11/26/2024 5:41 AM [facility] Cannabinoid (THC) Screen, Ur Negative Negative LAB CHEMISTRY METHOD 11/26/2024 5:41 AM [facility] Comment:Specimens from patie nts taking pantoprazole sodium (Protonix) have been shown to produce false positive results. Oxycodone Screen, Ur Negative Negative LAB CHEMISTRY METHOD 11/26/2024 5:41 AM [facility] Fentanyl, Ur Negative Negative LAB CHEMISTRY METHOD 11/26/2024 5:41 AM [facility] Urine Urine specimen obtained by clean catch procedure / Unknown Non-blood Collection / Unknown 11/26/2024 5:10 AM EST 11/26/2024 5:17 AM [facility] - 11/26/2024 5:41 AM EST Assay cutoffs: Amphetamines ? 1000 ng/mL Barbiturates ?200 ng/mL Benzodiazepines ?? 200 ng/mL Cocaine ? 300 ng/mL Fentanyl ?1 ng/mL Opiates ? 300 ng/mL Oxycodone ? 100 ng/mL THC ?50 ng/mL Semi-quantitative assay for screening purposes only. Unconfirmed screening result should not be used for non-medical purposes. *ALTERNATE METHOD CONFIRMATION DONE UPON REQUEST ONLY* us Alberto Massey MD LAB URINE ORDERABLES Final Resu lt [facility] [address] [place] [address], [place] [phone] * B-type natriuretic peptide (11/26/2024 12:01 AM EST) [facility] BNP 5 <=100 pcg/mL LAB CHEMISTRY METHOD 11/26/2024 1:20 AM EST [facility] Blood Venous blood specimen / Unknown Venipuncture / Unknown 11/26/2024 12:01 AM EST 11/26/2024 12:44 AM EST Cara CAPELLAN LAB BLOOD ORDERABLES Fin al Result Performing Organization Address [facility]/ZIP Co de Phone Number [facility] [address] [place] [address], [place] [phone] * Troponin I high sensitivity (11/26/2024 12:01 AM EST) [facility] High Sensitivity Troponin I 3 <=54 ng/L LAB CHEMISTRY METHOD 11/26/2024 1:14 AM EST [facility] Blood Venous blood specimen / Unknown Venipuncture / Unknown 11/26/2024 12:01 AM EST 11/26/2024 12:44 AM EST Narrative [facility] - 11/26/2024 1:14 AM EST High levels of biotin in samples may falsely decrease hsTroponin values. ??Use caution when interpreting hsTroponin results in patients taking biotin who exhibit renal impairment (eGFR <60) or in patients taking more than 20 mg/day of biotin. us Cara CAPELLAN LAB BLOOD ORDERABLES Fin al Result Performing Organization Address City/[facility]/ZIP Co de Phone Number [facility] [address] [place] [address], [place] [phone] * D-dimer, quantitative (11/25/2024 10:29 PM EST) [facility] D-Dimer, Quant (D-DU) <150 <=230 ng/mL DDU LAB COAGULATION METHOD 11/25/2024 11:18 PM EST [facility] Blood Venous blood specimen / Unknown Venipuncture / Unknown 11/25/2024 10:29 PM EST 11/25/2024 11:03 PM EST Narrative [facility] - 11/25/2024 11:18 PM EST D-Dimer <230 ng/mL (D-Dimer units) is the threshold for exclusion of DVT/PE. D-Dimer may be elevated in: Critically ill, severely infected, trauma patients, DIC, acute CVA, acute OR, unstable angina, AF, old age, , and smoking. D-Dimer may be decreased with: Initiation of heparin therapy and oral anticoagulants. Cara CAPELLAN LAB BLOOD ORDERABLES Fin al Result [facility] [address] [place] [address], [place] [phone] * (ABNORMAL) POCT Glucose, blood (11/25/2024 9:40 PM EST) [facility] Glucose POCT 232(H) 70 - 100 mg/dL 11/25/2024 9:41 PM EST [facility] Blood Capillary blood specimen / Unknown 11/25/2024 9:40 PM EST 11/25/2024 9:42 PM EST Jimmy Alfonso MD LAB POINT OF CARE TE ST DOCKED DEVICE UNSOLICITED RESULTS Final Result Performing Organization Address [facility]/ZIP Co de Phone Number [facility] [address] [place] [address], [place] [phone] * XR Chest 2 Views (11/25/2024 9:17 PM EST) Anatomical Region Laterality Modality Body Radiographic Renata ging 11/26/2024 9:05 AM EST Impressions 11/26/2024 9:05 AM EST No acute pulmonary disease. No change since the prior study performed 11/01/2024. Code 20892 -------- FINAL REPORT -------- Dictated By: Jefe Agrawal Dictated Date: 11/26/2024 09:05 ET Assigned Physician: Jefe Agrawal Reviewed and Electronically Signed By: Jefe Agrawal Signed Date: 11/26/2024 09:05 ET Workstation ID: [id number] Transcribed By: Self Edit Transcribed Date: 11/26/2024 09:05 ET Narrative 11/26/2024 9:05 AM EST HISTORY: The patient is a 48-year-old female with dyspnea. FINDINGS: PA and lateral radiographs of the chest demonstrate mild levoscoliosis of the thoracic spine as also seen on the prior study performed 11/01/2024. The cardiac and mediastinal contours are within normal limits. The lungs and costophrenic angles are clear. Procedure Note Jefe Agrawal MD - 11/26/2024 HISTORY: The patient is a 48-year-old female with dyspnea. FINDINGS: PA and lateral radiographs of the chest demonstrate mildlevoscoliosis of the thoracic spine as also seen on the prior studyperformed 11/01/2024. The cardiac and mediastinal contours are withinnormal limits. The lungs and costophrenic angles are clear. IMPRESSION: No acute pulmonary disease. No change since the prior study performed11/01/2024. Code 03897 -------- FINAL REPORT -------- Dictated By: Jefe Agrawal Dictated Date: 11/26/2024 09:05 ET Assigned Physician: Jefe Agrawal Reviewed and Electronically Signed By: Jefe Agrawal Signed Date: 11/26/2024 09:05 ET Workstation ID: [id number] Transcribed By: Self Edit Transcribed Date: 11/26/2024 09:05 ET us Jimmy Alfonso MD IMG XR PROCEDURES Final Result * (ABNORMAL) CBC auto differential (11/25/2024 8:24 PM EST) WBC 8.4 4.8 - 10.8 K/mcL LAB HEMETOLOGY METHOD 11/25/2024 9:01 PM [facility] RBC 4.30 3.80 - 4.80 M/mcL LAB HEMETOLOGY METHOD 11/25/2024 9:01 PM [facility] Hemoglobin 12.9 11.5 - 16.0 g/dL LAB HEMETOLOGY METHOD 11/25/2024 9:01 PM [facility] Hematocrit 40.1 35.0 - 47.0 % LAB HEMETOLOGY METHOD 11/25/2024 9:01 PM [facility] MCV 94.1 79.0 - 98.0 FL LAB HEMETOLOGY METHOD 11/25/2024 9:01 PM [facility] MCH 30.3 27.0 - 32.0 pcg LAB HEMETOLOGY METHOD 11/25/2024 9:01 PM [facility] MCHC 32.2 32.0 - 37.0 g/dL LAB HEMETOLOGY METHOD 11/25/2024 9:01 PM [facility] RDW 12.8 11.0 - 15.0 % LAB HEMETOLOGY METHOD 11/25/2024 9:01 PM [facility] Platelets 316 130 - 400 K/mcL LAB HEMETOLOGY METHOD 11/25/2024 9:01 PM [facility] MPV 9.3 7.0 - 11.0 FL LAB HEMETOLOGY METHOD 11/25/2024 9:01 PM [facility] NRBC 0.0 <1.0 % LAB HEMETOLOGY METHOD 11/25/2024 9:01 PM [facility] NRBC Absolute 0.00 <0.10 K/mcL LAB HEMETOLOGY METHOD 11/25/2024 9:01 PM [facility] Neutrophils Relative 66.9 % LAB HEMETOLOGY METHOD 11/25/2024 9:01 PM [facility] Lymphocytes Relative 19.3 % LAB HEMETOLOGY METHOD 11/25/2024 9:01 PM [facility] Monocytes Relative 9.5 % LAB HEMETOLOGY METHOD 11/25/2024 9:01 PM [facility] Eosinophils Relative 2.6 % LAB HEMETOLOGY METHOD 11/25/2024 9:01 PM [facility] Basophils Relative 0.4 % LAB HEMETOLOGY METHOD 11/25/2024 9:01 PM [facility] Immature Granulocytes Relative 1.3 % LAB HEMETOLOGY METHOD 11/25/2024 9:01 PM [facility] Neutrophils Absolute 5.59 1.50 - 7.00 K/mcL LAB HEMETOLOGY METHOD 11/25/2024 9:01 PM [facility] Lymphocytes Absolute 1.61 1.00 - 5.00 K/mcL LAB HEMETOLOGY METHOD 11/25/2024 9:01 PM [facility] Monocytes Absolute 0.79 0.20 - 1.00 K/mcL LAB HEMETOLOGY METHOD 11/25/2024 9:01 PM [facility] Eosinophils Absolute 0.22 0.00 - 0.50 K/mcL LAB HEMETOLOGY METHOD 11/25/2024 9:01 PM [facility] Basophils Absolute 0.03 0.00 - 0.20 K/mcL LAB HEMETOLOGY METHOD 11/25/2024 9:01 PM [facility] Immature Granulocytes Absolute 0.11(H) 0.00 - 0.03 K/mcL LAB HEMETOLOGY METHOD 11/25/2024 9:01 PM [facility] Blood Venous blood specimen / Unknown Venipuncture / Unknown 11/25/2024 8:24 PM EST 11/25/2024 8:52 PM EST us Jimmy Alfonso MD LAB BLOOD ORDERABLES Final Resu lt [facility] [address] [place] [address], * Respiratory virus panel molecular study (11/25/2024 8:24 PM EST) Adenovirus Detection by PCR Not Detected Not Detected LAB MICROBIOLOGY METHOD 11/25/2024 9:55 PM EST [facility] Influenza A PCR Not Detected Not Detected LAB MICROBIOLOGY METHOD 11/25/2024 9:55 PM EST [facility] Influenza B PCR Not Detected Not Detected LAB MICROBIOLOGY METHOD 11/25/2024 9:55 PM EST [facility] Coronavirus 229E Not Detected Not Detected LAB MICROBIOLOGY METHOD 11/25/2024 9:55 PM EST [facility] Coronavirus HKU1 Not Detected Not Detected LAB MICROBIOLOGY METHOD 11/25/2024 9:55 PM EST [facility] Coronavirus OC43 Not Detected Not Detected LAB MICROBIOLOGY METHOD 11/25/2024 9:55 PM EST [facility] Coronavirus NL63 Not Detected Not Detected LAB MICROBIOLOGY METHOD 11/25/2024 9:55 PM EST [facility] Parainfluenza Virus 1 Not Detected Not Detected LAB MICROBIOLOGY METHOD 11/25/2024 9:55 PM EST [facility] Parainfluenza Virus 2 Not Detected Not Detected LAB MICROBIOLOGY METHOD 11/25/2024 9:55 PM EST [facility] Parainfluenza Virus 3 Not Detected Not Detected LAB MICROBIOLOGY METHOD 11/25/2024 9:55 PM EST [facility] Parainfluenza Virus 4 Not Detected Not Detected LAB MICROBIOLOGY METHOD 11/25/2024 9:55 PM EST [facility] RSV PCR Not Detected Not Detected LAB MICROBIOLOGY METHOD 11/25/2024 9:55 PM EST [facility] Human Metapneumovirus A and B Not Detected Not Detected LAB MICROBIOLOGY METHOD 11/25/2024 9:55 PM EST [facility] Rhinovirus/Entero virus Not Detected Not Detected LAB MICROBIOLOGY METHOD 11/25/2024 9:55 PM EST [facility] Bordetella pertussis Not Detected Not Detected LAB MICROBIOLOGY METHOD 11/25/2024 9:55 PM EST [facility] Bordetella parapertussis Not Detected Not Detected LAB MICROBIOLOGY METHOD 11/25/2024 9:55 PM EST [facility] Mycoplasma pneumo by PCR Not Detected Not Detected LAB MICROBIOLOGY METHOD 11/25/2024 9:55 PM EST [facility] Chlamydia pneumoniae Not Detected Not Detected LAB MICROBIOLOGY METHOD 11/25/2024 9:55 PM EST [facility] SARS COV-2 Not Detected Not Detected LAB MICROBIOLOGY METHOD 11/25/2024 9:55 PM EST [facility] Sputum Both anterior nares / Unknown Non-blood Collection / Unknown 11/25/2024 8:24 PM EST 11/25/2024 8:52 PM EST [facility] - 11/25/2024 9:55 PM EST Testing was performed using the [employer] Respiratory Pathogen PCR Assay. All results must be correlated with the clinical findings. Results should not be used as the sole basis for diagnosis. False Negative results may occur from the presence of sequence variants in the region targeted by the assay or the presence of inhibitors. Results may be affected by concurrent antiviral/antimicrobial therapy or levels of organisms that are below the limit of detection. us Jimmy Alfonso MD LAB MI[facility]BIOLOGY - [facility] Final Result [facility] [address] [place] [address], [place] [phone] * (ABNORMAL) Basic metabolic panel (11/25/2024 8:24 PM EST) Sodium 136 133 - 145 mmol/L LAB CHEMISTRY METHOD 11/25/2024 9:56 PM [facility] Potassium 3.9 3.5 - 5.5 mmol/L LAB CHEMISTRY METHOD 11/25/2024 9:56 PM [facility] Chloride 104 96 - 110 mmol/L LAB CHEMISTRY METHOD 11/25/2024 9:56 PM [facility] CO2 24 21 - 32 mmol/L LAB CHEMISTRY METHOD 11/25/2024 9:56 PM [facility] Anion Gap 8 3 - 11 LAB CHEMISTRY METHOD 11/25/2024 9:56 PM [facility] Glucose 260(H) 70 - 100 mg/dL LAB CHEMISTRY METHOD 11/25/2024 9:56 PM [facility] BUN 16 5 - 25 mg/dL LAB CHEMISTRY METHOD 11/25/2024 9:56 PM [facility] Creatinine 0.78 0.50 - 1.10 mg/dL LAB CHEMISTRY METHOD 11/25/2024 9:56 PM [facility] eGFR 95 >=60 mL/min/1. 73m2 LAB CHEMISTRY METHOD 11/25/2024 9:56 PM [facility] Comment:Calculation based on the??Chronic Kidney Disease Epidemiology Collaboration (CKD-EPI) equation refit??without adjustment for race. BUN/Creatinine Ratio 20.5 LAB CHEMISTRY METHOD 11/25/2024 9:56 PM [facility] Calcium 9.2 8.5 - 10.5 mg/dL LAB CHEMISTRY METHOD 11/25/2024 9:56 PM [facility] Blood Venous blood specimen / Unknown Venipuncture / Unknown 11/25/2024 8:24 PM EST 11/25/2024 8:52 PM EST us Jimmy Alfonso MD LAB BLOOD ORDERABLES Final [facility] [address] [place] [address], * ECG 12 lead (11/25/2024 8:19 PM EST) Ventricular Rate ECG 126 BPM GEMUSE Atrial Rate 126 BPM GEMUSE P-R Interval 154 ms GEMUSE QRS Duration 84 ms GEMUSE Q-T Interval 308 ms GEMUSE QTc 446 ms GEMUSE P Wave Steele 58 degrees GEMUSE R Steele 53 degrees GEMUSE T Steele 67 degrees GEMUSE ECG Interpretation Sinus tachycardia Possible Left atrial enlargement Borderline ECG When compared with ECG of 01-NOV-2024 02:16, No significant change was found Confirmed by ESTHER THAO ([id number]) on 11/26/2024 11:33:46 AM GEMUSE 11/25/2024 8:19 PM EST 11/26/2024 11:33 AM EST us Jimmy Alfonso MD ECG ORDERABLES Final Result NAE documented in this encounter Visit Diagnoses Diagnosis Shortness of breath- Primary documented in this encounter Administered Medications Inactive Administered Medications - up to 3 most recent administrations Medication Order MAR Action Action Date Dose Rate Site sodium chloride 0.9 % bolus 1,000 mL 1,000 mL, intravenous, at 2,000 mL/hr, Administer over 30 Minutes, Once, On Sun11/25/24 at 2129, For 1 dose New Bag 11/25/2024 9:49 PM EST 1,000 mL 2000 mL/hr sodium chloride 0.9 % bolus 1,000 mL 1,000 mL, intravenous, at 2,000 mL/hr, Administer over 30 Minutes, Once, On Sun11/25/24 at 2327, For 1 dose New Bag 11/25/2024 11:35 PM EST 1,000 mL 2000 mL/hr documented in this encounter Active and Recently Administered Medications Times are shown in EST. Scheduled Medication Order 11/24/2024 11/25/2024 11/26/2024 sodium chloride 0.9 % bolus 1,000 mL (COMPLETED) 1,000 mL, intravenous, at 2,000 mL/hr, Administer over 30 Minutes, Once, On Sun11/25/24 at 2129, For 1 dose 2149 (New Bag - Provider: Henrietta Wiggins, WALKER)2219 (Stopped - Provider: Henrietta Wiggins, WALKER) sodium chloride 0.9 % bolus 1,000 mL (COMPLETED) 1,000 mL, intravenous, at 2,000 mL/hr, Administer over 30 Minutes, Once, On Sun11/25/24 at 2327, For 1 dose 2335 (New Bag - Provider: Henrietta Wiggins RN) 0109 (Stopped - Provider: Henrietta Wiggins RN) documented in this encounter Orders Medications Ordered That Dionisio ht Not Have Been Administered Count Last Ordered Date First Ordered Date sodium chloride 0.9 % bolus 1,000 mL 1 11/15 documented in this encounter Additional Health Concerns Infection Onset Date Last Indicated Resolved Time Respiratory Rule-Out 11/25/2024 11/25/2024 025 9:55 PM EST COVID-19 Rule-Out 11/25/2024 11/25/2024 11/25/2024 9:55 PM EST documented as of this encounter Care Teams Cardiac Rehabilitation Program Director Relationship Specialty Start Date End Date Maribel Marquez [address] [place] [address] PCP - General 09/08/24 documented as of this encounter
--- OUTSIDE RECORDS SUMMARY | 2024-11-28 02:20 | XMS_ITS | Encounter Summary ---
Author Organization [facility] Address [address] [place] [address] Care Team Providers Care Director Utilization Management Name Role Phone Nikki Alcantar MD Primary Care Provider [phone] Michelle Norris MD Primary Care Provider Unavail [facility] Primary Care Provider [facility] Michelle Norris MD Primary Care Provider Unavail [facility] Rosetta Diamond MD Primary Care Provider + Encounter Details Date Type Department Care Team Description 11/26/2007 Hospital Medical Records [address] [place] [phone] Saúl Francisco Social History Tobacco Use Types Packs/Day Years [...] on filedocumented in this encounter Care Teams Director Utilization Management Relationship Specialty Start Date End Date Nikki Alcantar MD [address] [place] [address] PCP - General 06/26/05 03/04/17 Michelle Norris MD [address] [place] [address] PCP - General Internal Medicine 03/05/17 03/16/21 [facility], Pcp [address] [place] [address] PCP - General Internal Medicine 03/17/21 05/04/21 Michelle Norris MD [address] [place] [address] PCP - General Internal Medicine 05/05/21 09/13/22 Rosetta Diamond MD [address] [place], [place] [phone] PCP - General Internal Medicine 09/14/22 documented as of this encounter
--- OUTSIDE RECORDS SUMMARY | 2024-11-28 02:20 | XMS_ITS | Encounter Summary ---
Author Organization [facility] Address [address] [place] [address] Care Team Providers Care Database Management Specialist Name Role Phone Nikki Alcantar MD Primary Care Provider [phone] Michlele Norris MD Primary Care Provider Unavail [facility] Primary Care Provider [facility] Michelle Norris MD Primary Care Provider Unavail [facility] Rosetta Diamond MD Primary Care Provider + Encounter Details Date Type Department Care Team Description 07/15/2014 Hospital Medical Records [address] [place] [address] [facility] Social History Tobacco Use Types Packs/Day [...] on filedocumented in this encounter Care Teams Database Management Specialist Relationship Specialty Start Date End Date Nikki Alcantar MD [address] [place] [address] PCP - General 06/26/05 03/04/17 Michelle Norris MD [address] [place] [address] PCP - General Internal Medicine 03/05/17 03/16/21 [facility], Pcp [address] [place] [address] PCP - General Internal Medicine 03/17/21 05/04/21 Michelle Norris MD [address] [place] [address] PCP - General Internal Medicine 05/05/21 09/13/22 Rosetta Diamond MD [address] [place] [address] PCP - General Internal Medicine 09/14/22 documented as of this encounter
--- OUTSIDE RECORDS SUMMARY | 2024-11-28 02:20 | XMS_ITS | Encounter Summary ---
Author Organization [facility] Address [address] [place] [address] Care Team Providers Care Checkerer Hand Name Role Phone Nikki Alcantar MD Primary Care Provider [phone] Michelle Norris MD Primary Care Provider Unavail [facility] Primary Care Provider [facility] Michelle Norris MD Primary Care Provider Unavail [facility] Rosetta Diamond MD Primary Care Provider + Encounter Details Date Type Department Care Team Description 04/02/2014 Hospital Medical Records [address] [place] [phone] [id number] Social History Tobacco Use Types Packs/Day Years [...] on filedocumented in this encounter Care Teams Checkerer Hand Relationship Specialty Start Date End Date Nikki Alcantar MD [address] [place] [address] PCP - General 06/26/05 03/04/17 Michelle Norris MD [address] [place] [address] PCP - General Internal Medicine 03/05/17 03/16/21 [facility], Pcp [address] [place] [address] PCP - General Internal Medicine 03/17/21 05/04/21 Michelle Norris MD [address] [place] [address] PCP - General Internal Medicine 05/05/21 09/13/22 Rosetta Diamond MD [address] [place] [address] PCP - General Internal Medicine 09/14/22 documented as of this encounter
--- OUTSIDE RECORDS SUMMARY | 2024-11-28 02:20 | XMS_ITS | Encounter Summary ---
Author Organization [facility] Address [address] [place] [address] Care Team Providers Care Real Estate Agency Licensee Name Role Phone Nikki Alcantar MD Primary Care Provider [phone] Michelle Norris MD Primary Care Provider Unavail able [facility] Michelle Norris MD Primary Care Provider Unavail able Rosetta Diamond MD Primary Care Provider + Encounter Details Date Type Department Care Team Description 09/29/[address] [facility] [address] [place] [address] [phone] Nikki Alcantar MD [address] [place] [address] [phone] Social History Tobacco Use Types Packs/Day Years Used Date Smoking Tobacco: Every Day Cigarettes 1 Smokeless Tobacco: Never Comments:Started @ age 32 Alcohol Use Standard Drinks/Week Comments No 0 (1 standard drink = 0.6 oz pur e alcohol) Sex Assigned at Date Recorded Not on file Job Start Date Occupation Industry Not on file Not on file Not on file documented as of this encounter Miscellaneous Notes * Telephone Encounter - Armaan Phillips L.P.N. - 09/29/2012 1:33 PM EST Follow up to night triage call Called patient left message for patient to call triage nurse documented in this encounter Plan of Treatment Not on file documented as of this encounter Visit Diagnoses Not on filedocumented in this encounter Care Teams Real Estate Agency Licensee Relationship Specialty Start Date End Date Nikki Alcantar MD [address] [place] [address] PCP - General 06/26/05 03/04/17 Michelle Norris MD [address] [place], [place] [phone] PCP - General Internal Medicine 03/05/17 03/16/21 [place] [address] PCP - General Internal Medicine 03/17/21 05/04/21 Michelle Norris MD [address] [place] [address] PCP - General Internal Medicine 05/05/21 09/13/22 Rosetta Diamond MD [address] [place] [address] PCP - General Internal Medicine 09/14/22 documented as of this encounter
--- OUTSIDE RECORDS SUMMARY | 2024-11-28 02:20 | XMS_ITS | Encounter Summary ---
Author Organization [facility] Address [address] [place] [address] Care Team Providers Care Clinical Nursing Manager Name Role Phone Nikki Alcantar MD Primary Care Provider [phone] Michelle Norris MD Primary Care Provider Unavail [facility] Primary Care Provider [facility] Michelle Norris MD Primary Care Provider Unavail [facility] Rosetta Diamond MD Primary Care Provider + Encounter Details Date Type Department Care Team Description 11/25/2015 Hospital Medical Records [address] [place] [address] Petey Kate Social History Tobacco Use Types Packs/Day Years [...] on filedocumented in this encounter Care Teams Clinical Nursing Manager Relationship Specialty Start Date End Date Nikki Alcantar MD [address] [place] [address] PCP - General 06/26/05 03/04/17 Michelle Norris MD [address] [place] [address] PCP - General Internal Medicine 03/05/17 03/16/21 [facility], Pcp [address] [place] [address] PCP - General Internal Medicine 03/17/21 05/04/21 Michelle Norris MD [address] [place] [address] [place] [address] PCP - General Internal Medicine 05/05/21 09/13/22 Rosetta Diamond MD [address] [place], [place] [phone] PCP - General Internal Medicine 09/14/22 documented as of this encounter
--- OUTSIDE RECORDS SUMMARY | 2024-11-28 02:20 | XMS_ITS | Encounter Summary ---
Author Organization [facility] Address [address] [place] [address] Care Team Providers Care Art Museum Aide Name Role Phone Nikki Alcantar MD Primary Care Provider [phone] Michelle Norris MD Primary Care Provider Unavail [facility] Primary Care Provider [facility] Michelle Norris MD Primary Care Provider Unavail [facility] Rosetta Diamond MD Primary Care Provider + Encounter Details Date Type Department Care Team Description 01/05/2016 Transfer Records Medical Records [address] [place] [address] Social History Tobacco Use Types Packs/Day Years [...] on filedocumented in this encounter Care Teams Art Museum Aide Relationship Specialty Start Date End Date Nikki Alcantar MD [address] [place] [address] PCP - General 06/26/05 03/04/17 Michlele Norris MD [address] [place] [address] PCP - General Internal Medicine 03/05/17 03/16/21 [facility], Pcp [address] [place], [place] [phone] PCP - General Internal Medicine 03/17/21 05/04/21 Michelle Norris MD [address] [place] [address] PCP - General Internal Medicine 05/05/21 09/13/22 Rosetta Diamond MD [address] [place] [address] PCP - General Internal Medicine 09/14/22 documented as of this encounter
--- OUTSIDE RECORDS SUMMARY | 2024-11-28 02:20 | XMS_ITS | Encounter Summary ---
Author Organization [facility] Address [address] [place] [address] Care Team Providers Care Curing Press Operator Name Role Phone Nikki Alcantar MD Primary Care Provider Michelle Norris MD Primary Care Provider Unavail [facility] Primary Care Provider [facility] Michelle Norris MD Primary Care Provider Unavail [facility] Rosetta Diamond MD Primary Care Provider + Encounter Details Date Type Department Care Team Description 10/15/2012 Night Triage Doc Medical Records [address] [place] [id number] Abstract, Provider Social History Tobacco Use Types [...] on filedocumented in this encounter Care Teams Curing Press Operator Relationship Specialty Start Date End Date Nikki Alcantar MD [address] [place] [address] PCP - General 06/26/05 03/04/17 Michelle Norris MD [address] [place] [address] PCP - General Internal Medicine 03/05/17 03/16/21 [facility], Pcp [address] [place] [address] PCP - General Internal Medicine 03/17/21 05/04/21 Michelle Norris MD [address] [place], [place] [phone] PCP - General Internal Medicine 05/05/21 09/13/22 Rosetta Diamond MD [address] [place] [address] PCP - General Internal Medicine 09/14/22 documented as of this encounter
--- OUTSIDE RECORDS SUMMARY | 2024-11-28 02:20 | XMS_ITS | Encounter Summary ---
Author Organization [facility] Address [address] [place] [address] Care Team Providers Care Medical Intern Name Role Phone Nikki Alcantar MD Primary Care Provider [phone] Michelle Norris MD Primary Care Provider Unavail [facility] Primary Care Provider [facility] Michelle Norris MD Primary Care Provider [facility] Rosetta Diamond MD Primary Care Provider + Encounter Details Date Type Department Care Team Description 07/05/2012 Transfer Records Medical Records [address] [place] [id number] Abstract, Provider Social History Tobacco Use Types [...] on filedocumented in this encounter Care Teams Medical Intern Relationship Specialty Start Date End Date Nikki Alcantar MD [address] [place] [address] PCP - General 06/26/05 03/04/17 Michelle Norris MD [address] [place] [address] PCP - General Internal Medicine 03/05/17 03/16/21 [facility], Pcp [address] [place] [address] PCP - General Internal Medicine 03/17/21 05/04/21 Michelle Norris MD [address] [place] [address] PCP - General Internal Medicine 05/05/21 09/13/22 Rosetta Diamond MD [address] [place], [place] [phone] PCP - General Internal Medicine 09/14/22 documented as of this encounter
--- OUTSIDE RECORDS SUMMARY | 2024-11-28 02:20 | XMS_ITS | Encounter Summary ---
Author Organization [facility] Address [address] [place] [address] Care Team Providers Care Test Driller Name Role Phone Michelle Norris MD Primary Care Provider Unavail able [facility] Primary Care [facility] Michelle Lagos MD Primary Care Provider Unavail able Rosetta Diamond MD Primary Care Provider + Reason for Visit * Reason Onset Date Comments Orders Call 01/25/2018 Encounter Details Date Type Department Care Team Description 01/25/2018 Telephone OBGYN - [place] [address] [place] [address] Ying Morton MD [address] [place] [address] Orders Call Social History Tobacco Use Types Packs/Day [...] encounter Miscellaneous Notes * Telephone Encounter - Chel Piña - 01/25/2018 1:16 PM EDT Placed in Chel's bin per below * Telephone Encounter - Narda Zepeda M.A. - 01/25/2018 1:[address] this in Chel singer as she was last to see patient. CMB * Telephone Encounter - Chel Delgadillorandistefanie - 01/25/2018 12:23 PM EDT Chief Complaint/problem: Fax recevied from [facility] (Viki Cisneros) / verbal; order verification regarding Bridget; Viki would like signature/fax back -- states it can be any provider. Placed in Triage bin How long has the patient had this problem? Pt???s HOME DEPOT REP provider: Ying Morton M.D. Last menstrual period (LMP) or EDC (due date): N/A documented in this encounter Plan of Treatment Not on file documented as of this encounter Visit Diagnoses Not on filedocumented in this encounter Care Teams Test Driller Relationship Specialty Start Date End Date Michelle Norris MD PCP - General Internal Medicine 03/05/17 03/16/21 [facility] [place] - [place] Internal Medicine 03/17/21 05/04/21 Michelle Norris MD PCP - General Internal Medicine 05/05/21 09/13/22 Rosetta Diamond MD [address] [place] [address] PCP - General Internal Medicine 09/14/22 documented as of this encounter
--- OUTSIDE RECORDS SUMMARY | 2024-11-28 02:20 | XMS_ITS | Encounter Summary ---
Author Organization [facility] Address [address] [place] [address] Care Team Providers Care Digital Asset Specialist Name Role Phone Michelle Norris MD Primary Care Provider [facility]ail [facility], Pcp [facility] Michelle Norris MD Primary Care Provider Unavail able Rosetta Diamond MD Primary Care Provider + Encounter Details Date Type Department Care Team Description 04/12/2018 Logistics Team Leader Report Medical Records [address] [place] [address] Abstract, Provider Social History Tobacco Use Types [...] on filedocumented in this encounter Care Teams Digital Asset Specialist Relationship Specialty Start Date End Date Michelle Norris MD PCP - General Internal Medicine 03/05/17 03/16/21 [facility], Pcp PCP - General Internal Medicine 03/17/21 05/04/21 Michelle Norris MD PCP - General Internal Medicine 05/05/21 09/13/22 Rosetta Diamond MD [address] [place] [address] PCP - General Internal Medicine 09/14/22 documented as of this encounter
--- OUTSIDE RECORDS SUMMARY | 2024-11-28 02:20 | XMS_ITS | Encounter Summary ---
Author Organization [facility] Address [address] [place] [address] Care Team Providers Care Work Distributor Name Role Phone Michelle Norris MD Primary Care Provider [facility]ail [facility], Pcp [facility] Michelle Norris MD Primary Care Provider Unavail able Rosetta Diamond MD Primary Care Provider + Encounter Details Date Type Department Care Team Description 01/10/2018 Boxing Trainer Report Medical Records [address] [place] [address] Salma Mahmood, MAKENZIE Social History Tobacco Use Types Packs/Day Years [...] on filedocumented in this encounter Care Teams Work Distributor Relationship Specialty Start Date End Date Michelle Norris MD PCP - General Internal Medicine 03/05/17 03/16/21 [facility], Pcp PCP - General Internal Medicine 03/17/21 05/04/21 Michelle Norris MD PCP - General Internal Medicine 05/05/21 09/13/22 Rosetta Diamond MD [address] [place] [address] PCP - General Internal Medicine 09/14/22 documented as of this encounter
--- OUTSIDE RECORDS SUMMARY | 2024-11-28 02:20 | XMS_ITS | Encounter Summary ---
Author Organization [facility] Address [address] [place] [address] Care Team Providers Care Bioinformatician Name Role Phone Michelle Norris MD Primary Care Provider Unavail able [facility], Pcp [facility] Michelle Lagos MD Primary Care Provider Unavail able Rosetta Diamond MD Primary Care Provider + Reason for Visit * Reason Onset Date Comments other 05/02/2018 hospital admissi on [facility] Care Encounter Details Date Type Department Care Team Description 05/02/2018 Telephone Adult Medicine [address] [address] Michelle Norris MD other (hospital admission - [facility]) Social History Tobacco Use Types Packs/Day Years [...] encounter Miscellaneous Notes * Telephone Encounter - Sridevi Rayumndo R.N. - 05/16/2018 1:49 PM EDT [facility] from [facility] called to confirm Hosp f/u appt on 05/22 at 1:30. She will fax hospital notes to [phone] * Telephone Encounter - Sridevi Raymundo R.N. - 05/16/2018 12:17 PM EDT I left a message for Paradise from [facility] at [phone] to return my call. Pt has hosp f/u appt 05/22 at 1:30 with pcp. * Telephone Encounter - Sridevi Toscano - 05/16/2018 10:43 AM EDT [facility] Returning call * Telephone Encounter - Sho Souza - 05/02/2018 4:56 PM EDT Patient was admitted on 05-01-18 to [facility] dx: suicidal ideation with aplan. documented in this encounter Plan of Treatment Not on file documented as of this encounter Visit Diagnoses Not on filedocumented in this encounter Care Teams Bioinformatician Relationship Specialty Start Date End Date Michelle Norris MD PCP - General Internal Medicine 03/05/17 03/16/21 [facility] PCP - General Internal Medicine 03/17/21 05/04/21 Michelle Norris MD PCP - General Internal Medicine 05/05/21 09/13/22 Rosetta Diamond MD [address] [place] [address] PCP - General Internal Medicine 09/14/22 documented as of this encounter
--- OUTSIDE RECORDS SUMMARY | 2024-11-28 02:20 | XMS_ITS | Encounter Summary ---
Author Organization [facility] Address [address] [place] [address] Care Team Providers Care Wax Pumper Name Role Phone Nikki Alcantar MD Primary Care Provider [phone] Michelle Norris MD Primary Care Provider Unavail [facility] Primary Care Provider [facility] Michelle Norris MD Primary Care Provider [facility]ail [facility] Rosetta Diamond MD Primary Care Provider + Encounter Details Date Type Department Care Team Description 12/26/2015 Hospital Medical Records [address] [place] [address] Angelique Moore Social History Tobacco Use Types Packs/Day Years [...] on filedocumented in this encounter Care Teams Wax Pumper Relationship Specialty Start Date End Date Nikki Alcantar MD [address] [place] [address] PCP - General 06/26/05 03/04/17 Michelle Norris MD [address] [place] [address] PCP - General Internal Medicine 03/05/17 03/16/21 [facility], Pcp [address] [place] [address] PCP - General Internal Medicine 03/17/21 05/04/21 Michelle Norris MD [address] [place] [address] [place] [address] PCP - General Internal Medicine 05/05/21 09/13/22 Rosetta Diamond MD [address] [place], [place] [phone] PCP - General Internal Medicine 09/14/22 documented as of this encounter
--- OUTSIDE RECORDS SUMMARY | 2024-11-28 02:20 | XMS_ITS | Encounter Summary ---
Author Organization [facility] Address [address] [place] [address] Care Team Providers Care Bag Builder Name Role Phone Nikki Alcantar MD Primary Care Provider [phone] Michelle Norris MD Primary Care Provider Unavail able [facility] Primary Care Provider [facility] Michelle Norris MD Primary Care Provider Unavail [facility] Rosetta Diamond MD Primary Care Provider + Encounter Details Date Type Department Care Team Description 07/05/2012 Hospital Medical Records [address] [place] [address] Julio Bright [address] [place] [address] Social History Tobacco Use Types Packs/Day Years [...] on filedocumented in this encounter Care Teams Bag Builder Relationship Specialty Start Date End Date Nikki Alcantar MD [address] [place] [address] PCP - General 06/26/05 03/04/17 Michelle Norris MD [address] [place] [address] PCP - General Internal Medicine 03/05/17 03/16/21 [facility], Pcp [address] [place] [address] PCP - General Internal Medicine 03/17/21 05/04/21 Michelle Norris MD [address] [place] [address] PCP - General Internal Medicine 05/05/21 09/13/22 Rosetta Diamond MD [address] [place] [address] PCP - General Internal Medicine 09/14/22 documented as of this encounter
--- OUTSIDE RECORDS SUMMARY | 2024-11-28 02:20 | XMS_ITS | Encounter Summary ---
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 t [facility] [address] [place] [address], * Methadone, urine (11/01/2024 12:23 AM EST) Methadone Screen, Urine Negative Negative LAB CHEMISTRY METHOD 11/01/2024 1:12 AM EST [facility] Comment: Assay cutoff 300 ng/mL Semi-quantitative assay for screening purposes only. Unconfirmed screening result should not be used for non-medical purposes. *ALTERNATE METHOD CONFIRMATION DONE UPON REQUEST ONLY* Urine Urine specimen obtained by clean catch procedure / Unknown Non-blood Collection / Unknown 11/01/2024 12:23 AM EST 11/01/2024 12:49 AM EST Yue [facility] LAB URINE ORDERABLES Final Re sult Performing Organization Address [facility]/ZIP Co de Phone Number [facility] [address] [place] [address], [place] [phone] * Phencyclidine, urine (11/01/2024 12:23 AM EST) [facility] PCP Scrn, Ur Negative Negative LAB CHEMISTRY METHOD 11/01/2024 1:12 AM EST [facility] Comment: Assay cutoff 25 ng/mL Semi-quantitative assay for screening purposes only. Unconfirmed screening result should not be used for non-medical purposes. *ALTERNATE METHOD CONFIRMATION DONE UPON REQUEST ONLY* Urine Urine specimen obtained by clean catch procedure / Unknown Non-blood Collection / Unknown 11/01/2024 12:23 AM EST 11/01/2024 12:49 AM EST Yue [facility] URINE ORDERABLES Final Re sult [facility] [address] [place] [address], [place] [phone] * Buprenorphine screen, urine (11/01/2024 12:23 AM EST) [facility] Buprenorphine Screen Urine Negative Negative LAB CHEMISTRY METHOD 11/01/2024 1:12 AM EST [facility] Urine Urine specimen obtained by clean catch procedure / Unknown Non-blood Collection / Unknown 11/01/2024 12:23 AM EST 11/01/2024 12:49 AM EST Narrative [facility] - 11/01/2024 1:12 AM EST Assay cutoff 5 ng/mL Semi-quantitative assay for screening purposes only. Unconfirmed screening result should not be used for non-medical purposes. *ALTERNATE METHOD CONFIRMATION DONE UPON REQUEST ONLY* Yue [facility] URINE ORDERABLES Final Re sult [facility] [address] [place] [address], [place] [phone] * Drug abuse screen 8a panel, urine (11/01/2024 12:23 AM EST) [facility] Amphetamine Screen, Ur Negative Negative LAB CHEMISTRY METHOD 11/01/2024 1:12 AM [facility] Comment:Certain OTC medicati ons containing ephedrine, phenylephrine, pseudoephedrine and phenylpropanolamine can cause false positive results. Barbiturate Screen, Ur Negative Negative LAB CHEMISTRY METHOD 11/01/2024 1:12 AM [facility] Benzodiazepine Screen, Ur Negative Negative LAB CHEMISTRY METHOD 11/01/2024 1:12 AM [facility] Cocaine Screen, Ur Negative Negative LAB CHEMISTRY METHOD 11/01/2024 1:12 AM [facility] Opiate Screen, Ur Negative Negative LAB CHEMISTRY METHOD 11/01/2024 1:12 AM [facility] Cannabinoid (THC) Screen, Ur Negative Negative LAB CHEMISTRY METHOD 11/01/2024 1:12 AM [facility] Comment:Specimens from patie nts taking pantoprazole sodium (Protonix) have been shown to produce false positive results. Oxycodone Screen, Ur Negative Negative LAB CHEMISTRY METHOD 11/01/2024 1:12 AM [facility] Fentanyl, Ur Negative Negative LAB CHEMISTRY METHOD 11/01/2024 1:12 AM [facility] Urine Urine specimen obtained by clean catch procedure / Unknown Non-blood Collection / Unknown 11/01/2024 12:23 AM EST 11/01/2024 12:49 AM EST Narrative [facility] - 11/01/2024 1:12 AM EST Assay cutoffs: Amphetamines ? 1000 ng/mL Barbiturates ?200 ng/mL Benzodiazepines ?? 200 ng/mL Cocaine ? 300 ng/mL Fentanyl ?1 ng/mL Opiates ? 300 ng/mL Oxycodone ? 100 ng/mL THC ?50 ng/mL Semi-quantitative assay for screening purposes only. Unconfirmed screening result should not be used for non-medical purposes. *ALTERNATE METHOD CONFIRMATION DONE UPON REQUEST ONLY* us Yue [facility] URINE ORDERABLES Final Re sult Performing Organization Address City/[facility]/ZIP Co de Phone Number [facility] [address] [place] [address], [place] [phone] * [place] top urine tube (11/01/2024 12:20 AM EST) Extra Tube Hold for add-ons. 11/01/2024 2:01 AM EST [facility] Comment:Auto resulted. Urine Urine specimen obtained by clean catch procedure / Unknown 11/01/2024 12:20 AM EST 11/01/2024 12:49 AM EST Dylan CAPELLAN [facility] URINE ORDERABLES Final Resul t Performing Organization Address [facility] Co de Phone Number [facility] [address] [place] [address], [place] [phone] * ECG-Annotated (10/31/2024) us Provider Onbase MD ECG ORDERABLES Final Result documented in this encounter Visit Diagnoses Diagnosis Non-cardiac chest pain- Primary Other chest pain documented in this encounter Administered Medications Inactive Administered Medications - up to 3 most recent administrations Medication Order MAR Action Action Date Dose Rate Site acetaminophen (TYLENOL) tablet 1,000 mg 1,000 mg, oral, Once, On 11/01/24 at 0622, For 1 dose Given 11/01/2024 6:59 AM EST 1,000 mg albuterol 2.5 mg /3 mL (0.083 %) nebulizer solution 2.5 mg 2.5 mg, nebulization, Once, On 11/01/24 at 0241, For 1 dose Given 11/01/2024 2:53 AM EST 2.5 mg documented in this encounter Active and Recently Administered Medications Times are shown in EST. Scheduled Medication Order 10/30/2024 10/31/2024 11/01/2024 acetaminophen (TYLENOL) tablet 1,000 mg (COMPLETED) 1,000 mg, oral, Once, On 11/01/24 at 0622, For 1 dose 0659 (Given - Provid er: Rudi Ruiz RN) albuterol 2.5 mg /3 mL (0.083 %) nebulizer solution 2.5 mg (COMPLETED) 2.5 mg, nebulization, Once, On 11/01/24 at 0241, For 1 dose 0253 (Given - Provid er: Rudi Ruiz RN) documented in this encounter Care Teams Reports Analysis Manager Relationship Specialty Start Date End Date Jason Marquez [address] [place] [id number] PCP - General 09/08/24 documented as of this encounter
--- OUTSIDE RECORDS SUMMARY | 2024-11-28 02:20 | XMS_ITS | Encounter Summary ---
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 10/30/2024 10:18 PM EST [facility] Comment: Assay cutoff 300 ng/mL Semi-quantitative assay for screening purposes only. Unconfirmed screening result should not be used for non-medical purposes. *ALTERNATE METHOD CONFIRMATION DONE UPON REQUEST ONLY* Urine Urine specimen obtained by clean catch procedure / Unknown Non-blood Collection / Unknown 10/30/2024 6:12 PM EST 10/30/2024 6:56 PM EST Rosemary Cash DO LAB URINE ORDERABLES Vidya l Result Performing Organization Address City/[facility]/ZIP Co de Phone Number [facility] [address] [place] [address], [place] [phone] * Phencyclidine, urine (10/30/2024 6:12 PM EST) PCP Scrn, Ur Negative Negative LAB CHEMISTRY METHOD 10/30/2024 10:18 PM EST [facility] Comment: Assay cutoff 25 ng/mL Semi-quantitative assay for screening purposes only. Unconfirmed screening result should not be used for non-medical purposes. *ALTERNATE METHOD CONFIRMATION DONE UPON REQUEST ONLY* Urine Urine specimen obtained by clean catch procedure / Unknown Non-blood Collection / Unknown 10/30/2024 6:12 PM EST 10/30/2024 6:56 PM EST Rosemary Cash LAB URINE ORDERABLES Vidya l Result Performing Organization Address [facility]/ZIP Co de Phone Number [facility] [address] [place] [address], [place] [phone] * Buprenorphine screen, urine (10/30/2024 6:12 PM EST) Buprenorphine Screen Urine Negative Negative LAB CHEMISTRY METHOD 10/30/2024 9:56 PM EST [facility] Urine Urine specimen obtained by clean catch procedure / Unknown Non-blood Collection / Unknown 10/30/2024 6:12 PM EST 10/30/2024 6:56 PM EST Narrative [facility] - 10/30/2024 9:56 PM EST Assay cutoff 5 ng/mL Semi-quantitative assay for screening purposes only. Unconfirmed screening result should not be used for non-medical purposes. *ALTERNATE METHOD CONFIRMATION DONE UPON REQUEST ONLY* Rosemary Cash DO LAB URINE ORDERABLES Vidya l Result Performing Organization Address [facility]/ZIP Co de Phone Number [facility] [address] [place] [address], [place] [phone] * Drug abuse screen 8a panel, urine (10/30/2024 6:12 PM EST) Amphetamine Screen, Ur Negative Negative LAB CHEMISTRY METHOD 10/30/2024 9:56 PM EST [facility] Comment:Certain OTC medicati ons containing ephedrine, phenylephrine, pseudoephedrine and phenylpropanolamine can cause false positive results. Barbiturate Screen, Ur Negative Negative LAB CHEMISTRY METHOD 10/30/2024 9:56 PM EST [facility] Benzodiazepine Screen, Ur Negative Negative LAB CHEMISTRY METHOD 10/30/2024 9:56 PM EST [facility] Cocaine Screen, Ur Negative Negative LAB CHEMISTRY METHOD 10/30/2024 9:56 PM EST [facility] Opiate Screen, Ur Negative Negative LAB CHEMISTRY METHOD 10/30/2024 9:56 PM [facility] Cannabinoid (THC) Screen, Ur Negative Negative LAB CHEMISTRY METHOD 10/30/2024 9:56 PM EST [facility] Comment:Specimens from patie nts taking pantoprazole sodium (Protonix) have been shown to produce false positive results. Oxycodone Screen, Ur Negative Negative LAB CHEMISTRY METHOD 10/30/2024 9:56 PM [facility] Fentanyl, Ur Negative Negative LAB CHEMISTRY METHOD 10/30/2024 9:56 PM [facility] Urine Urine specimen obtained by clean catch procedure / Unknown Non-blood Collection / Unknown 10/30/2024 6:12 PM EST 10/30/2024 6:56 PM EST [facility] - 10/30/2024 9:56 PM EST Assay cutoffs: Amphetamines ? 1000 ng/mL Barbiturates ?200 ng/mL Benzodiazepines ?? 200 ng/mL Cocaine ? 300 ng/mL Fentanyl ?1 ng/mL Opiates ? 300 ng/mL Oxycodone ? 100 ng/mL THC ?50 ng/mL Semi-quantitative assay for screening purposes only. Unconfirmed screening result should not be used for non-medical purposes. *ALTERNATE METHOD CONFIRMATION DONE UPON REQUEST ONLY* Rosemary Cash DO LAB URINE ORDERABLES Vidya l Result Performing Organization Address City/[facility]/ZIP Co de Phone Number [facility] [address] [place] [address], [place] [phone] * ECG 12 lead (10/30/2024 5:58 PM EST) Ventricular Rate ECG 103 BPM [facility] Atrial Rate 103 BPM GEMUSE P-R Interval 168 ms GEMUSE QRS Duration 86 ms GEMUSE Q-T Interval 368 ms GEMUSE QTc 482 ms GEMUSE P Wave [place] 58 degrees GEMUSE R [place] 36 degrees GEMUSE T [place] 48 degrees GEMUSE ECG Interpretation Sinus tachycardia Possible Left atrial enlargement Borderline ECG When compared with ECG of 25-OCT-2024 13:17, No significant change was found Confirmed by Jaiden OROZCO JAMES ([id number]) on 10/30/2024 9:44:37 PM [facility] 10/30/2024 5:58 PM EST 10/30/2024 9:44 PM EST Rosemary Cash DO ECG ORDERABLES Final Res ult Performing Organization Address City/[facility]/ZIP Co de Phone Number GEM[facility] * ECG-Annotated (10/30/2024) Provider Onbase MD ECG ORDERABLES Final Result documented in this encounter Visit Diagnoses Diagnosis PTSD (post-traumatic stress disorder)- Primary Posttraumatic stress disorder documented in this encounter Discontinued Medications Medication Sig Discontinue Reason Start Date End Da te nystatin (MYCOSTATIN) 100,000 unit/gram powder Apply 100,000 g topically 2 (two) times a day. 09/26/2024 10/30/2024 documented as of this encounter Orders Consult Count Last Ordered Date First Orde red Date IP CONSULT TO CLINICAL COUNSELOR 1 10/30/2024 documented in this encounter Care Teams Auto Appraiser Relationship Specialty Start Date End Date Jason Marquez [facility] [place] [address] PCP - General 09/08/24 documented as of this encounter
--- OUTSIDE RECORDS SUMMARY | 2024-11-28 02:20 | XMS_ITS | Encounter Summary ---
Author Organization [facility] Address [address] [place] [address] Care Team Providers Care Environmental Sciences Professor Name Role Phone Michelle Norris MD Primary Care Provider Unavail able [facility], Pcp [facility] Michelle Norris MD Primary Care Provider Unavail able Rosetta Diamond MD Primary Care Provider + Encounter Details Date Type Department Care Team Description 04/25/2018 Refill Adult Medicine [address] [address] Michelle Norris MD Social History Tobacco Use Types Packs/Day [...] on filedocumented in this encounter Care Teams Environmental Sciences Professor Relationship Specialty Start Date End Date Michelle Norris MD PCP - General Internal Medicine 03/05/17 03/16/21 [facility], Pcp PCP - General Internal Medicine 03/17/21 05/04/21 Michelle Norris MD PCP - General Internal Medicine 05/05/21 09/13/22 Rosetta Diamond MD [address] [place] [address] [id number] PCP - General Internal Medicine 09/14/22 documented as of this encounter
--- OUTSIDE RECORDS SUMMARY | 2024-11-28 02:21 | XMS_ITS | Encounter Summary ---
Author Organization [facility] Address [address] [place] [address] Care Team Providers Care Runway Model Name Role Phone Michelle Norris MD Primary Care Provider Unavail able Rosetta Diamond MD Primary Care Provider + Encounter Details Date Type Department Care Team Description 05/05/2021 [facility] Medical Records [address] [place] [address] Robby Bazan Social History Tobacco Use Types Packs/Day Years [...] on filedocumented in this encounter Care Teams Runway Model Relationship Specialty Start Date End Date Michelle Norris MD PCP - General Internal Medicine 05/05/21 09/13/22 Rosetta Diamond MD [address] [place] [address] PCP - General Internal Medicine 09/14/22 documented as of this encounter
--- OUTSIDE RECORDS SUMMARY | 2024-11-28 02:21 | XMS_ITS | Encounter Summary ---
Author Organization [facility] Address [address] [place] [address] Care Team Providers Care Investigator Welfare Name Role Phone Nikki Alcantar MD Primary Care Provider [phone] Michelle Norris MD Primary Care Provider Unavail able [facility] Primary Care Provider [facility] Michelle Norris MD Primary Care Provider Unavail able Rosetta Diamond MD Primary Care Provider + Reason for Visit * Reason Onset Date Comments APPOINTMENT 10/26/2011 missed appointme nt w/Dr Alcantar Encounter Details Date Type Department Care Team Description 10/26/2011 Telephone Adult Medicine [address] [phone] Nikki Alcantar MD [address] [place] [address] [phone] APPOINTMENT (missed appointment w/Dr Alcantar) Social History Tobacco Use Types Packs/Day Years [...] encounter Miscellaneous Notes * Telephone Encounter - Lindsay MachadoP.N. - 10/26/2011 10:28 AM EST M/L for call back from Pt- she missed an appointment w/Dr Alcantar today for hosp. F/u- needs to reschedule documented in this encounter Plan of Treatment Not on file documented as of this encounter Visit Diagnoses Not on filedocumented in this encounter Care Teams Investigator Welfare Relationship Specialty Start Date End Date Nikki Alcantar MD [address] [place] [address] PCP - General 06/26/05 03/04/17 Michelle Norris MD [address] [place] [address] PCP - General Internal Medicine 03/05/17 03/16/21 [place] [address] PCP - General Internal Medicine 03/17/21 05/04/21 Michelle Norris MD [address] [place] [address] PCP - General Internal Medicine 05/05/21 09/13/22 Rosetta Diamond MD [address] [place] [address] PCP - General Internal Medicine 09/14/22 documented as of this encounter
--- OUTSIDE RECORDS SUMMARY | 2024-11-28 02:21 | XMS_ITS | Encounter Summary ---
Author Organization [facility] Address [address] [place] [address] Care Team Providers Care Carriage Setter Name Role Phone Nikki Alcantar MD Primary Care Provider [phone] Michelle Norris MD Primary Care Provider Unavail able [facility] Michelle Norris MD Primary Care Provider Unavail able Rosetta Diamond MD Primary Care Provider + Reason for Visit * Reason Onset Date Comments Call From Hospital 08/26/2014 Encounter Details Date Type Department Care Team Description 08/26/2014 Telephone Adult Medicine [address] [phone] Nikki Alcantar MD [address] [place] [address] [phone] Call From Hospital Social History Tobacco Use Types Packs/Day Years Used Date Smoking Tobacco: Every Day Cigarettes 1 Smokeless Tobacco: Never Comments:Started @ age 32 Alcohol Use Standard Drinks/Week Comments Yes 0 (1 standard drink = 0.6 oz pur e alcohol) occasional Sex Assigned at Date Recorded Not on file Job Start Date Occupation Industry Not on file Not on file Not on file documented as of this encounter Miscellaneous Notes * Telephone Encounter - Lucita Royal M.A. - 08/26/2014 3:34 PM EST FYI * Telephone Encounter - Rebecca Terry - 08/26/2014 3:30 PM EST [facility] has admitted patient. Any questions call tammy at [phone] documented in this encounter Plan of Treatment Not on file documented as of this encounter Visit Diagnoses Not on filedocumented in this encounter Care Teams Carriage Setter Relationship Specialty Start Date End Date Nikki Alcantar MD [address] [place] [address] PCP - General 06/26/05 03/04/17 Michelle Norris MD [address] [place] [address] PCP - General Internal Medicine 03/05/17 03/16/21 [place] [address] PCP - General Internal Medicine 03/17/21 05/04/21 Michelle Norris MD [address] [place] [address] PCP - General Internal Medicine 05/05/21 09/13/22 Rosetta Diamond MD [address] [place] [address] PCP - General Internal Medicine 09/14/22 documented as of this encounter
--- OUTSIDE RECORDS SUMMARY | 2024-11-28 02:21 | XMS_ITS | Encounter Summary ---
Author Organization [facility] Address [address] [place] [address] Care Team Providers Care Professional Sports Scout Name Role Phone Nikki Alcantar MD Primary Care Provider Michelle Norris MD Primary Care Provider Unavail [facility] Primary Care Provider [facility] Michelle Norris MD Primary Care Provider Unavail [facility] Rosetta Diamond MD Primary Care Provider + Encounter Details Date Type Department Care Team Description 02/11/2015 Hospital Medical Records [address] [place] [address] Social History Tobacco Use Types Packs/Day Years [...] on filedocumented in this encounter Care Teams Professional Sports Scout Relationship Specialty Start Date End Date Nikki Alcantar MD [address] [place] [address] PCP - General 06/26/05 03/04/17 Michelle Norris MD [address] [place] [address] PCP - General Internal Medicine 03/05/17 03/16/21 [facility], Pcp [address] [place] [address] PCP - General Internal Medicine 03/17/21 05/04/21 Michelle Norris MD [address] [place] [address] PCP - General Internal Medicine 05/05/21 09/13/22 Rosetta Diamond MD [address] [place] [address] KARTIK CHEN [address] PCP - General Internal Medicine 09/14/22 documented as of this encounter
--- OUTSIDE RECORDS SUMMARY | 2024-11-28 02:21 | XMS_ITS | Encounter Summary ---
Author Organization [facility] Address [address] [place] [address] Care Team Providers Care Athletic Coach Name Role Phone Michelle Norris MD Primary Care Provider Unavail able [facility], Pcp [facility] Michelle Lagos MD Primary Care Provider Unavail able Rosetta Diamond MD Primary Care Provider + Reason for Visit * Reason Onset Date Comments Faxed Order 08/22/2020 Encounter Details Date Type Department Care Team Description 08/22/2020 Telephone Adult [address] [address] Michelle Norris MD Faxed Order Social History Tobacco Use Types Packs/Day Years [...] encounter Miscellaneous Notes * Telephone Encounter - Rosio Lloyd - 08/22/2020 1:59 PM EST [facility] IS FAXING ORDERS TO BE SIGN AND FAX BACK TO [phone]. documented in this encounter Plan of Treatment Not on file documented as of this encounter Visit Diagnoses Not on filedocumented in this encounter Care Teams Athletic Coach Relationship Specialty Start Date End Date Michelle Norris MD PCP - General Internal Medicine 03/05/17 03/16/21 [facility], Pcp PCP - General Internal Medicine 03/17/21 05/04/21 Michelle Norris MD PCP - General Internal Medicine 05/05/21 09/13/22 Rosetta Diamond MD [address] [place] [address] PCP - General Internal Medicine 09/14/22 documented as of this encounter
--- OUTSIDE RECORDS SUMMARY | 2024-11-28 02:21 | XMS_ITS | Encounter Summary ---
Author Organization [facility] Address [address] [place] [address] Care Team Providers Care Final Tester Name Role Phone Nikki Alcantar MD Primary Care Provider [phone] Michelle Norris MD Primary Care Provider Unavail [facility] Primary Care Provider [facility] Michelle Norris MD Primary Care Provider Unavail able Rosetta Diamond MD Primary Care Provider + Reason for Visit * Reason Onset Date Comments refill request 07/18/2011 Encounter Details Date Type Department Care Team Description 07/18/2011 Refill Adult Medicine [address] [phone] Nikki Alcantar MD [address] [place] [address] [phone] refill request Social History Tobacco Use Types Packs/Day Years [...] Miscellaneous Notes * Telephone Encounter - Lindsay MachadoPRobiNRobi - 07/18/2011 1:21 PM EDT Contact # listed above not accepting calls Called Pt @ contact # listed in Demographics- M/L for call back Pt has been in Hosp several times since last PCP visit- N/S two visits Has appt w/Dr Alcantar on 07/20/11- refills will need to wait until then * Telephone Encounter - Rosio Lloyd - 07/18/2011 1:08 PM EDT WHEN WAS THE PATIENT'S LAST APPOINTMENT IN ADULT MEDICINE? 12/27/2010 WHEN WAS THE LAST TIME THE PATIENT SAW THEIR PCP? Same as above Does patient have an upcoming appointment? Yes 07/20/2011 (THE MEDICATION REQUESTED IS ON THE MED LIST ABOVE) All of the medications requested were on the CURRENT MEDS list Did you check the Pharmacy information above?: YES Is this a mail order prescription request? NO Indicate how soon the patient needs the script: BY THE END OF THE DAY Patient would like script to be: FAXED TO PHARMACY Is the doctor here today?: YES Can the message wait until the doctor returns?: NO Patients current [place] is: [place] Product Type: MEDICARE [id number] documented in this encounter Plan of Treatment Not on file documented as of this encounter Visit Diagnoses Not on filedocumented in this encounter Care Teams Final Tester Relationship Specialty Start Date End Date Nikki Alcantar MD [address] [place] [address] PCP - General 06/26/05 03/04/17 Michelle Norris MD [address] [place] [address] PCP - General Internal Medicine 03/05/17 03/16/21 [facility], Pcp [address] [place] [address] PCP - General Internal Medicine 03/17/21 05/04/21 Michelle Norris MD [address] [place] [address] PCP - General Internal Medicine 05/05/21 09/13/22 Rosetta Diamond MD [address] [place] [address] PCP - General Internal Medicine 09/14/22 documented as of this encounter
--- OUTSIDE RECORDS SUMMARY | 2024-11-28 02:21 | XMS_ITS | Encounter Summary ---
Author Organization [facility] Address [address] [place] [address] Care Team Providers Care Striker Off Name Role Phone Nikki Alcantar MD Primary Care Provider [phone] Michelle Norris MD Primary Care Provider Unavail able [facility] Michelle Norris MD Primary Care Provider Unavail able Rosetta Diamond MD Primary Care Provider + Reason for Visit * Reason Onset Date Comments Behavior 05/27/2015 Encounter Details Date Type Department Care Team Description 05/27/2015 Telephone Adult Medicine [address] [phone] Nikki Alcantar MD [address] [place] [address] [phone] Behavior Social History Tobacco Use Types Packs/Day Years [...] * Telephone Encounter - Rosio Lloyd - 05/27/2015 1:09 PM EDT PAT FROM [facility] IS CALLING TO LET DR ALCANTAR KNOW THAT PATIENT HAS BEEN ADMITTED. documented in this encounter Plan of Treatment Not on file documented as of this encounter Visit Diagnoses Not on filedocumented in this encounter Care Teams Striker Off Relationship Specialty Start Date End Date Nikki Alcantar MD [address] [place] [address] PCP - General 06/26/05 03/04/17 Michelle Norris MD [address] [place] [address] PCP - General Internal Medicine 03/05/17 03/16/21 [place] [address] PCP - General Internal Medicine 03/17/21 05/04/21 Michelle Norris MD [address] [place] [address] PCP - General Internal Medicine 05/05/21 09/13/22 Rosetta Diamond MD [address] [place], [place] [phone] PCP - General Internal Medicine 09/14/22 documented as of this encounter
--- OUTSIDE RECORDS SUMMARY | 2024-11-28 02:21 | XMS_ITS | Encounter Summary ---
Author Organization [facility] Address [address] [place] [address] Care Team Providers Care Staff Therapist Name Role Phone Michelle Norris MD Primary Care Provider Unavail able [facility], Pcp Primary Care Provider Michelle Abdi MD Primary Care Provider Unavail able Rosetta Diamond MD Primary Care Provider + Reason for Visit * Reason Onset Date Comments hospital follow up 09/05/2017 Encounter Details Date Type Department Care Team Description 09/05/2017 Telephone Adult [address] [address] Michelle Norris MD hospital follow up Social History Tobacco Use Types Packs/Day Years [...] encounter Miscellaneous Notes * Telephone Encounter - Emerald Chavarria - 09/05/2017 10:11 AM EST Patient admitted at [facility] today. documented in this encounter Plan of Treatment Not on file documented as of this encounter Visit Diagnoses Not on filedocumented in this encounter Care Teams Staff Therapist Relationship Specialty Start Date End Date Michelle Norris MD PCP - General Internal Medicine 03/05/17 03/16/21 [facility], Pcp PCP - General Internal Medicine 03/17/21 05/04/21 Michelle Norris MD PCP - General Internal Medicine 05/05/21 09/13/22 Rosetta Diamond MD [address] [place] [address] PCP - General Internal Medicine 09/14/22 documented as of this encounter
--- OUTSIDE RECORDS SUMMARY | 2024-11-28 02:21 | XMS_ITS | Encounter Summary ---
Author Organization [facility] Address [address] [place] [address] Care Team Providers Care Probate Paralegal Name Role Phone Michelle Norris MD Primary Care Provider Unavail able Rosetta Diamond MD Primary Care Provider + Encounter Details Date Type Department Care Team Description 05/17/2021 [facility] Getter Report Medical Records [address] [place] [address] Robby Bazan Social History Tobacco Use Types [...] on filedocumented in this encounter Care Teams Probate Paralegal Relationship Specialty Start Date End Date Michelle Norris MD PCP - General Internal Medicine 05/05/21 09/13/22 Rosetta Diamond MD [address] [place] [address] PCP - General Internal Medicine 09/14/22 documented as of this encounter
--- OUTSIDE RECORDS SUMMARY | 2024-11-28 02:21 | XMS_ITS | Encounter Summary ---
Author Organization [facility] Address [address] [place] [address] Care Team Providers Care Telecommunications Support Name Role Phone Rosetta Diamond MD Primary Care Provider + Reason for Visit * Reason Onset Date Comments hospital follow up 10/12/2022 Encounter Details Date Type Department Care Team Description 10/12/2022 Telephone Adult Medicine [facility] [address] [place] [address] [phone] Rosetta Diamond MD [address] [place] [address] [phone] hospital follow up Social History Tobacco Use [...] encounter Miscellaneous Notes * Telephone Encounter - Harmony Candelaria - 10/13/2022 12:41 PM EST Attempted to contact pt, phone line busy. * Telephone Encounter - Marie Braxton - 10/12/2022 11:41 AM EST Hospital follow up appointment needed Hospital patient was treated at: [facility] Was this only an ER visit or was the patient admitted to the hospital? Admitted to hospital Date of visit if ER visit only: N/A If patient was admitted what was the date of discharge? 10/13/22 Reason/diagnosis for visit or stay: Major depressive order with psychotic features, PTSD, panis disorder with agoraphobia, pchizoaffective disorder, depressive type When was the patient told to follow up? 1 week after discharge Was visit or stay related to an injury? NO If yes, what was the date of injury (DOI)? N/A If yes, was the injury due to N/A documented in this encounter Plan of Treatment Not on file documented as of this encounter Visit Diagnoses Not on filedocumented in this encounter Care Teams Telecommunications Support Relationship Specialty Start Date End Date Rosetta Diamond MD [address] [place] [address] PCP - General Internal Medicine 09/14/22 documented as of this encounter
--- OUTSIDE RECORDS SUMMARY | 2024-11-28 02:21 | XMS_ITS | Encounter Summary ---
Author Organization [facility] Address [address] [place] [address] Care Team Providers Care Oracle Identity Management Consultant Name Role Phone Nikki Alcantar MD Primary Care Provider [phone] Michelle Norris MD Primary Care Provider Unavail [facility] Primary Care Provider [facility] Michelle Norris MD Primary Care Provider Unavail [facility] Rosetta Diamond MD Primary Care Provider + Encounter Details Date Type Department Care Team Description 02/01/2012 Business Doc Medical Records [address] [place] [id number] Abstract, Provider Social History Tobacco Use Types [...] on filedocumented in this encounter Care Teams Oracle Identity Management Consultant Relationship Specialty Start Date End Date Nikki Alcantar MD [address] [place] [id number] PCP - General 06/26/05 03/04/17 Michelle Norris MD [address] [place] [address] PCP - General Internal Medicine 03/05/17 03/16/21 [facility], Pcp [address] [place] [address] PCP - General Internal Medicine 03/17/21 05/04/21 Michelle Norris MD [address] [place] [address] PCP - General Internal Medicine 05/05/21 09/13/22 Rosetta Diamond MD [address] [place], [place] [phone] PCP - General Internal Medicine 09/14/22 documented as of this encounter
--- OUTSIDE RECORDS SUMMARY | 2024-11-28 02:21 | XMS_ITS | Encounter Summary ---
Author Organization [facility] Address [address] [place] [address] Care Team Providers Care Purchasing Analyst Name Role Phone Katherine Norris MD Primary Care Provider Unavail able [facility], [facility] Primary Care [facility] Katherine Lagos MD Primary Care Provider Unavail able Rosetta Diamond MD Primary Care Provider + Reason for Visit * Reason Onset Date Comments hospital follow up 10/16/2017 Encounter Details Date Type Department Care Team Description 10/16/2017 Telephone Adult Medicine [address] [address] Katherine Norris MD hospital follow up Social History [...] encounter Miscellaneous Notes * Telephone Encounter - Daniela Chapa R.N - 10/16/2017 1:22 PM EST Hosp fu appt made for 10/26/17 at 1030 with KATHERINE FINE Pt seen at [facility] for crisis notes requested * Telephone Encounter - Deanna Oglesby - 10/16/2017 11:53 AM EST Hospital follow up appointment needed Hospital patient was treated at: [facility] Was this only an ER visit or was the patient admitted to the hospital? Admitted to hospital Date of visit if ER visit only: N/A If patient was admitted what was the date of discharge? 10/16/17 Reason/diagnosis for visit or stay: [facility]al [facility] Unit - nothing unstable with pt When was the patient told to follow up? Couple weeks Was visit or stay related to an injury? NO If yes, what was the date of injury (DOI)? N/A If yes, was the injury due to N/A documented in this encounter Plan of Treatment Not on file documented as of this encounter Visit Diagnoses Not on filedocumented in this encounter Care Teams Purchasing Analyst Relationship Specialty Start Date End Date Katherine Norris MD PCP - General Internal Medicine 03/05/17 03/16/21 [facility] PCP - General Internal Medicine 03/17/21 05/04/21 Katherine Norris MD PCP - General Internal Medicine 05/05/21 09/13/22 Rosetta Diamond MD [address] [place] [id number] PCP - General Internal Medicine 09/14/22 documented as of this encounter
--- OUTSIDE RECORDS SUMMARY | 2024-11-28 02:21 | XMS_ITS | Encounter Summary ---
Author Organization [facility] Address [address] [place] [address] Care Team Providers Care Teacher Of The Emotionally Disturbed Name Role Phone Michelle Norris MD Primary Care Provider Unavail able [facility], Pcp [facility] Michelle Norris MD Primary Care Provider Unavail able Rosetta Diamond MD Primary Care Provider + Encounter Details Date Type Department Care Team Description 10/16/2017 Hospital Medical Records [address] [place] [id number] Carlos Landrum Social History Tobacco Use Types [...] on filedocumented in this encounter Care Teams Teacher Of The Emotionally Disturbed Relationship Specialty Start Date End Date Michelle Norris MD PCP - General Internal Medicine 03/05/17 03/16/21 [facility], Pcp PCP - General Internal Medicine 03/17/21 05/04/21 Michelle Norris MD PCP - General Internal Medicine 05/05/21 09/13/22 Rosetta Diamond MD [address] [place] [address] PCP - General Internal Medicine 09/14/22 documented as of this encounter
--- OUTSIDE RECORDS SUMMARY | 2024-11-28 02:21 | XMS_ITS | Encounter Summary ---
Author Organization [facility] Address [address] [place] [address] Care Team Providers Care Accounts Payable Processor Name Role Phone Michelle Norris MD Primary Care Provider Unavail able [facility], Pcp Primary Care [facility] Michelle Lagos MD Primary Care Provider Unavail able Rosetta Diamond MD Primary Care Provider + Reason for Visit * Reason Onset Date Comments hospital follow up 08/29/2017 Encounter Details Date Type Department Care Team Description 08/29/2017 Telephone Adult Medicine [address] [address] Michelle Norris MD hospital follow up Social [...] encounter Miscellaneous Notes * Telephone Encounter - Luz Maria Saenz R.N. - 08/29/2017 12:12 PM EST Pt booked with dr muir 09/05 , need to review notes being sent, pt needs to be seen jus * Telephone Encounter - Shira Taylor - 08/29/2017 12:04 PM EST Hospital follow up appointment needed Hospital patient was treated at: [facility] Was this only an ER visit or was the patient admitted to the hospital? Admitted to hospital Date of visit if ER visit only: N/A If patient was admitted what was the date of discharge? 08-30-2017 Reason/diagnosis for visit or stay: ?? Paracardial effusion When was the patient told to follow up? JUS Was visit or stay related to an injury? NO If yes, what was the date of injury (DOI)? N/A If yes, was the injury due to N/A documented in this encounter Plan of Treatment Not on file documented as of this encounter Visit Diagnoses Not on filedocumented in this encounter Care Teams Accounts Payable Processor Relationship Specialty Start Date End Date Michelle Norris MD PCP - General Internal Medicine 03/05/17 03/16/21 [facility] PCP - General Internal Medicine 03/17/21 05/04/21 Michelle Norris MD PCP - General Internal Medicine 05/05/21 09/13/22 Rosetta Diamond MD [address] [place] [address] PCP - General Internal Medicine 09/14/22 documented as of this encounter
--- OUTSIDE RECORDS SUMMARY | 2024-11-28 02:21 | XMS_ITS | Encounter Summary ---
Author Organization [facility] Address [address] [place] [address] Care Team Providers Care Bass Guitar Teacher Name Role Phone Michelle Norris MD Primary Care Provider Unavail able [facility], Pcp [facility] Care [facility] Michelle Lagos MD Primary Care Provider Unavail able Rosetta Diamond MD Primary Care Provider + Encounter Details Date Type Department Care Team Description 12/21/2020 Hospital Medical Records [address] [place] [id number] Social History Tobacco Use Types Packs/Day Years [...] on filedocumented in this encounter Care Teams Bass Guitar Teacher Relationship Specialty Start Date End Date Michelle Norris MD PCP - General Internal Medicine 03/05/17 03/16/21 [facility], Pcp PCP - General Internal Medicine 03/17/21 05/04/21 Michelle Norris MD PCP - General Internal Medicine 05/05/21 09/13/22 Rosetta Diamond MD [address] [place] [address] PCP - General Internal Medicine 09/14/22 documented as of this encounter
--- OUTSIDE RECORDS SUMMARY | 2024-11-28 02:21 | XMS_ITS | Encounter Summary ---
Author Organization [facility] Address [address] [place] [address] Care Team Providers Care Critical Care Physician Assistant Name Role Phone Michelle Norris MD Primary Care Provider Unavail able [facility] Care [facility] Michelle Lagos MD Primary Care Provider Unavail able Rosetta Diamond MD Primary Care Provider + Reason for Visit * Reason Onset Date Comments [facility]NA Call 12/10/2018 Encounter Details Date Type Department Care Team Description 12/10/2018 Telephone Adult Medicine [address] [address] Michelle Norris MD VNA Call Social History [...] Encounter - Luz Maria Saenz R.N. - 12/10/2018 2:10 PM EST [facility] is resuming care with this pt , she was hospitalized for PTSD and has a manager medicare and therapist , I made an appointment for [address] cobos * Telephone Encounter - Megan Newton - 12/10/2018 1:48 PM EST [facility] CALL FYI Which [facility] office is calling? [facility] Full name of caller: SALAZAR ALEJANDRE The caller is A nurse Is the caller at the patients home?: NO Reason for call: SALAZAR ADMITTING PATIENT FOR CARE. SHE IS FAXING DISCHARGE FROM HOSPITAL WITH [facility] Does caller need an urgent call back? NO Was CONTACT Telephone # obtained above?: NO Fax #: documented in this encounter Plan of Treatment Not on file documented as of this encounter Visit Diagnoses Not on filedocumented in this encounter Care Teams Critical Care Physician Assistant Relationship Specialty Start Date End Date Michelle Norris MD PCP - General Internal Medicine 03/05/17 03/16/21 [facility] PCP - General Internal Medicine 03/17/21 05/04/21 Michelle Norris MD PCP - General Internal Medicine 05/05/21 09/13/22 Rosetta Diamond MD [address] [place] [address] PCP - General Internal Medicine 09/14/22 documented as of this encounter
--- OUTSIDE RECORDS SUMMARY | 2024-11-28 02:21 | XMS_ITS | Encounter Summary ---
Author Organization [facility] Address [address] [place] [address] Care Team Providers Care Digital Media Associate Name Role Phone Nikki Kumar MD Primary Care Provider [phone] Michelle Norris MD Primary Care Provider Unavail [facility] Primary Care Provider [facility] Michelle Norris MD Primary Care Provider Unavail able Rosetta Diamond MD Primary Care Provider + Reason for Visit * Reason Onset Date Comments Provider Call Back 11/30/2014 Encounter Details Date Type Department Care Team Description 11/30/2014 Telephone Adult Medicine [address] [phone] Nikki Kumar MD [address] [place] [address] [phone] Provider Call Back Social History Tobacco Use Types Packs/Day Years [...] Telephone Encounter - Lucita Royal M.A. - 12/01/2014 9:34 AM EST Msg left * Telephone Encounter - Claudia Hinton R.N. - 12/01/2014 9:12 AM EST [facility]NA will not dispense meds, its not a skilland vna needs a skill There are 2 agencies I know of there do [facility] #v [phone] And [facility] in [place] meds will remain locked and dispensed as ordered However she will needs to be home for the nurses to gives meds, if the nurse goes to make a visit and she is not there they will not go back until next day therefore missed doses * Telephone Encounter - Lucita Royal M.A. - 12/01/2014 8:41 AM EST Angela, please review, to your knowledge does [facility] dispense medication? * Telephone Encounter - Nikki Kumar MD - 11/30/2014 11:59 AM EST I do not believe [facility] is able to dispense her meds. She is not safe to self medicate. * Telephone Encounter - Claudia Sampson L.P.N. - 11/30/2014 11:53 AM EST Pt states she's leaving [facility], she said she's moving in with a friend and would like vna services to dispense her meds. She said she doesn't trust [facility], that they've missed giving her doses of meds. Please advise. * Telephone Encounter - Isaac Harvey - 11/30/2014 11:46 AM EST Symptoms patient is presenting: patient would like to speak to a nurse or dr kumar concerning her medical records How long has patient had these symptoms?: PCP: Nikki Kumar [place] / [place] / Product Type: [place]ICARE [id number] documented in this encounter Plan of Treatment Not on file documented as of this encounter Visit Diagnoses Not on filedocumented in this encounter Care Teams Digital Media Associate Relationship Specialty Start Date End Date Nikki Kumar MD [address] [place] [address] PCP - General 06/26/05 03/04/17 Michelle Norris MD [address] [place] [address] PCP - General Internal Medicine 03/05/17 03/16/21 [place] [address] PCP - General Internal Medicine 03/17/21 05/04/21 Michelle Norris MD [address] [place] [address] PCP - General Internal Medicine 05/05/21 09/13/22 Rosetta Diamond MD [address] [place] [address] PCP - General Internal Medicine 09/14/22 documented as of this encounter
--- OUTSIDE RECORDS SUMMARY | 2024-11-28 02:21 | XMS_ITS | Encounter Summary ---
Author Organization [facility] Address [address] [place] [address] Care Team Providers Care Operations Professional Name Role Phone Nikki Alcantar MD Primary Care Provider [phone] Michelle Norris MD Primary Care Provider Unavail [facility] Primary Care Provider [facility] Michelle Norris MD Primary Care Provider Unavail [facility] Rosetta Diamond MD Primary Care Provider + Encounter Details Date Type Department Care Team Description 08/18/2011 Transfer Records Medical Records [address] [place] [phone] Abstract, Provider Social History Tobacco Use Types [...] on filedocumented in this encounter Care Teams Operations Professional Relationship Specialty Start Date End Date Nikki Alcantar MD [address] [place] [address] PCP - General 06/26/05 03/04/17 Michelle Norris MD [address] [place] [address] PCP - General Internal Medicine 03/05/17 03/16/21 [facility], Pcp [address] [place] [address] PCP - General Internal Medicine 03/17/21 05/04/21 Michelle Norris MD [address] [place] [address] PCP - General Internal Medicine 05/05/21 09/13/22 Rosetta Diamond MD [address] [place], [place] [phone] PCP - General Internal Medicine 09/14/22 documented as of this encounter
--- OUTSIDE RECORDS SUMMARY | 2024-11-28 02:21 | XMS_ITS | Encounter Summary ---
Author Organization [facility] Address [address] [place] [address] Care Team Providers Care Chair Post Machine Operator Name Role Phone Nikki Alcantar MD Primary Care Provider [phone] Michelle Norris MD Primary Care Provider Unavail [facility] Primary Care Provider [facility] Michelle Norris MD Primary Care Provider Unavail [facility] Rosetta Diamond MD Primary Care Provider + Encounter Details Date Type Department Care Team Description 03/12/2015 Hospital Medical Records [address] [place] [id number] Social History Tobacco Use Types Packs/Day Years [...] on filedocumented in this encounter Care Teams Chair Post Machine Operator Relationship Specialty Start Date End Date Nikki Alcantar MD [address] [place] [address] PCP - General 06/26/05 03/04/17 Michelle Norris MD [address] [place] [address] PCP - General Internal Medicine 03/05/17 03/16/21 [facility], Pcp [address] [place] [address] PCP - General Internal Medicine 03/17/21 05/04/21 Michelle Norris MD [address] [place] [address] PCP - General Internal Medicine 05/05/21 09/13/22 Rosetta Diamond MD [address] [place] [address] KARTIK CHEN [address] PCP - General Internal Medicine 09/14/22 documented as of this encounter
--- OUTSIDE RECORDS SUMMARY | 2024-11-28 02:21 | XMS_ITS | Encounter Summary ---
Author Organization [facility] Address [address] [place] [address] Care Team Providers Care Ground Wirer Name Role Phone Nikki Alcantar MD Primary Care Provider [phone] Michelle Norris MD Primary Care Provider Unavail able [facility] Primary [facility] Michelle Norris MD Primary Care Provider Unavail able Rosetta Diamond MD Primary Care Provider + Reason for Visit * Reason Onset Date Comments Call From Hospital 03/23/2015 Encounter Details Date Type Department Care Team Description 03/23/2015 Telephone Adult Medicine [address] [phone] Nikki Alcantar MD [address] [place] [address] [phone] Call From Hospital Social History Tobacco Use [...] encounter Miscellaneous Notes * Telephone Encounter - Dianne Anglin - 03/23/2015 9:45 AM EDT fyi to dr josé Porter from [facility] psych unit called to notify Dr Alcantar that patient was admitted on 03/21/15 documented in this encounter Plan of Treatment Not on file documented as of this encounter Visit Diagnoses Not on filedocumented in this encounter Care Teams Ground Wirer Relationship Specialty Start Date End Date Nikki Alcantar MD [address] [place] [address] PCP - General 06/26/05 03/04/17 Michelle Norris MD [address] [place], [place] [phone] PCP - General Internal Medicine 03/05/17 03/16/21 [place] [address] PCP - General Internal Medicine 03/17/21 05/04/21 Michelle Norris MD [address] [place] [address] PCP - General Internal Medicine 05/05/21 09/13/22 Rosetta Diamond MD [address] [place], [place] [phone] PCP - General Internal Medicine 09/14/22 documented as of this encounter
--- OUTSIDE RECORDS SUMMARY | 2024-11-28 02:21 | XMS_ITS | Encounter Summary ---
Author Organization [facility] Address [address] [place] [address] Care Team Providers Care Project Geophysicist Name Role Phone Michelle Norris MD Primary Care Provider Unavail able [facility], Pcp [facility] Michelle Norris MD Primary Care Provider Unavail able Rosetta Diamond MD Primary Care Provider + Encounter Details Date Type Department Care Team Description 09/22/2017 Hospital Medical Records [address] [place] [address] Social History Tobacco Use Types Packs/Day Years [...] on filedocumented in this encounter Care Teams Project Geophysicist Relationship Specialty Start Date End Date Michelle Norris MD PCP - General Internal Medicine 03/05/17 03/16/21 [facility]cp PCP - General Internal Medicine 03/17/21 05/04/21 Michelle Norris MD PCP - General Internal Medicine 05/05/21 09/13/22 Rosetta Diamond MD [address] [place] [address] PCP - General Internal Medicine 09/14/22 documented as of this encounter
--- OUTSIDE RECORDS SUMMARY | 2024-11-28 02:21 | XMS_ITS | Encounter Summary ---
Author Organization [facility] Address [address] [place] [address] Care Team Providers Care Clinic Lpn Name Role Phone Michelle Norris MD Primary Care Provider Unavail able [facility], Pcp Primary Care Provider [facility] Michelle Norris MD Primary Care Provider Unavail able Rosetta Diamond MD Primary Care Provider + Encounter Details Date Type Department Care Team Description 11/15/2018 Release of Information Medical Records [address] [place] [address] Abstract, Provider Social History Tobacco Use Types [...] on filedocumented in this encounter Care Teams Clinic Lpn Relationship Specialty Start Date End Date Michelle Norris MD PCP - General Internal Medicine 03/05/17 03/16/21 [facility], Pcp PCP - General Internal Medicine 03/17/21 05/04/21 Michelle Norris MD PCP - General Internal Medicine 05/05/21 09/13/22 Rosetta Diamond MD [address] [place] [address] PCP - General Internal Medicine 09/14/22 documented as of this encounter
--- OUTSIDE RECORDS SUMMARY | 2024-11-28 02:21 | XMS_ITS | Encounter Summary ---
Author Organization [facility] Address [address] [place] [address] Care Team Providers Care Wharf Attendant Name Role Phone Michelle Norris MD Primary Care Provider Unavail able [facility], Pcp Primary Care Provider Unavailabl e Michelle Norris MD Primary Care Provider Unavail able Rosetta Diamond MD Primary Care Provider + Encounter Details Date Type Department Care Team Description 09/21/2020 Hospital Medical Records [address] [place] [address] Ibrahima Ron Social History Tobacco Use Types Packs/Day Years [...] on filedocumented in this encounter Care Teams Wharf Attendant Relationship Specialty Start Date End Date Michelle Norris MD PCP - General Internal Medicine 03/05/17 03/16/21 [facility] [place], Pcp PCP - General Internal Medicine 03/17/21 05/04/21 Michelle Norris MD PCP - General Internal Medicine 05/05/21 09/13/22 Rosetta Diamond MD [address] [place] [address] PCP - General Internal Medicine 09/14/22 documented as of this encounter
--- OUTSIDE RECORDS SUMMARY | 2024-11-28 02:21 | XMS_ITS | Encounter Summary ---
Author Organization [facility] Address [address] [place] [address] Care Team Providers Care Wireless Cellular Technician Name Role Phone Michelle Norris MD Primary Care Provider Unavail able [facility] Michelle Lagos MD Primary Care Provider Unavail able Rosetta Diamond MD Primary Care Provider + Reason for Visit * Reason Comments E-prescribe Rx Request Encounter Details Date Type Department Care Team Description 08/11/2018 Refill OBGYN - [place] [address] [place] [address] Chel Stapleton CNM [address] [place], [place] [phone] E-prescribe Rx Request Social History Tobacco Use [...] * Telephone Encounter - Chel Piña - 08/12/2018 10:17 AM EDT WHEN WAS THE PATIENTS LAST ANNUAL HELPER [employer] EXAM? 07/19/17 Does patient have an upcoming appointment? Yes 08/29/18 (THE MEDICATION REQUESTED IS ON THE MED LIST ABOVE) Did you check the Pharmacy information above?: NO Indicate how soon the patient needs the script: JUS Patient would like script to be: E-PRESCRIBED/FAXED TO PHARMACY Is the doctor here today?: yes Can the message wait until the doctor returns?: NO Has the patient been told that the prescription will not be filled until the end of the day? NO [place] / [place] / Product Type: [place] [id number] documented in this encounter Plan of Treatment Not on file documented as of this encounter Visit Diagnoses Diagnosis Encounter for initial prescription of contraceptive pills General counseling for prescription of oral contraceptives documented in this encounter Care Teams Wireless Cellular Technician Relationship Specialty Start Date End Date Michelle Norris MD PCP - General Internal Medicine 03/05/17 03/16/21 [facility] PCP - General Internal Medicine 03/17/21 05/04/21 Michelle Norris MD PCP - General Internal Medicine 05/05/21 09/13/22 Rosetta Diamond MD [address] [place] [address] PCP - General Internal Medicine 09/14/22 documented as of this encounter
--- OUTSIDE RECORDS SUMMARY | 2024-11-28 02:21 | XMS_ITS | Encounter Summary ---
Author Organization [facility] Address [address] [place] [address] Care Team Providers Care Field Contact Technician Name Role Phone Michelle Norris MD Primary Care Provider Unavail able [facility], P[facility] Michelle Norris MD Primary Care Provider Unavail able Rosetta Diamond MD Primary Care Provider + Encounter Details Date Type Department Care Team Description 11/19/2017 Hospital Medical Records [address] [place] [id number] Carlos Landrum Social History Tobacco Use Types [...] on filedocumented in this encounter Care Teams Field Contact Technician Relationship Specialty Start Date End Date Michelle Norris MD PCP - General Internal Medicine 03/05/17 03/16/21 [facility], Pcp PCP - General Internal Medicine 03/17/21 05/04/21 Michelle Norris MD PCP - General Internal Medicine 05/05/21 09/13/22 Rosetta Diamond MD [address] [place] [address] PCP - General Internal Medicine 09/14/22 documented as of this encounter
--- OUTSIDE RECORDS SUMMARY | 2024-11-28 02:21 | XMS_ITS | Encounter Summary ---
Author Organization [facility] Address [address] [place] [address] Care Team Providers Care Electrical Helper Name Role Phone Michelle Norris MD Primary Care Provider Unavail able [facility], Pcp [facility] Michelle Norris MD Primary Care Provider Unavail able Rosetta Diamond MD Primary Care Provider + Encounter Details Date Type Department Care Team Description 03/10/2020 Hospital Medical Records [address] [place] [phone] Marlen Grande Social History Tobacco Use Types [...] on filedocumented in this encounter Care Teams Electrical Helper Relationship Specialty Start Date End Date Michelle Norris MD PCP - General Internal Medicine 03/05/17 03/16/21 [facility], Pcp PCP - General Internal Medicine 03/17/21 05/04/21 Michelle Norris MD PCP - General Internal Medicine 05/05/21 09/13/22 Rosetta Diamond MD [address] [place] [address] PCP - General Internal Medicine 09/14/22 documented as of this encounter
--- OUTSIDE RECORDS SUMMARY | 2024-11-28 02:21 | XMS_ITS | Encounter Summary ---
Author Organization [facility] Address [address] [place] [address] Care Team Providers Care Bridge Welder Name Role Phone Nikki Alcantar MD Primary Care Provider [phone] Michelle Norris MD Primary Care Provider Unavail [facility] Primary Care Provider [facility] Michelle Norris MD Primary Care Provider Unavail [facility] Rosetta Diamond MD Primary Care Provider + Encounter Details Date Type Department Care Team Description 10/28/2014 Hospital Medical Records [address] [place] [phone] Social History Tobacco Use Types Packs/Day Years [...] on filedocumented in this encounter Care Teams Bridge Welder Relationship Specialty Start Date End Date Nikki Alcantar MD [address] [place] [address] PCP - General 06/26/05 03/04/17 Michelle Norris MD [address] [place] [address] PCP - General Internal Medicine 03/05/17 03/16/21 [facility], Pcp [address] [place] [address] PCP - General Internal Medicine 03/17/21 05/04/21 Michelle Norris MD [address] [place] [address] PCP - General Internal Medicine 05/05/21 09/13/22 Rosetta Diamond MD [address] [place] [address] KARTIK CHEN [address] PCP - General Internal Medicine 09/14/22 documented as of this encounter
--- OUTSIDE RECORDS SUMMARY | 2024-11-28 02:21 | XMS_ITS | Encounter Summary ---
Author Organization [facility] Address [address] [place] [address] Care Team Providers Care Director Biology Name Role Phone Michelle Norris MD Primary Care Provider Unavail able [facility] Primary [facility] Michelle Lagos MD Primary Care Provider Unavail able Rosetta Diamond MD Primary Care Provider + Reason for Visit * Reason Onset Date Comments Provider Call Back 10/12/2020 Encounter Details Date Type Department Care Team Description 10/12/2020 Telephone Adult Medicine [address] [id number] Michelle Norris MD Provider Call Back Social History Tobacco Use [...] file Not on file Not on file COVID-19 Exposure Response Date Recorded In the last month, have you been in contact with someone who was confirmed or suspected to have Coronavirus / COVID-19? Unable to assess 10/11/2020 9:00 AM EST documented as of this encounter Miscellaneous Notes * Telephone Encounter - Lindsay Vieyra LRobiP.N. - 10/14/2020 3:53 PM EST M/l for call back- need to know which MDI they are asking to change * Telephone Encounter - Angelique Fraga - 10/13/2020 4:39 PM EST Florencio, direct care staff returned call. Please call [phone] to speak with Milton if florencio can not be reached. * Telephone Encounter - Ashley Leija M.A. - 10/13/2020 3:29 PM EST Message left for Didi to return my call. * Telephone Encounter - Michelle Norris MD - 10/12/2020 4:51 PM EST Which inhaler ? * Telephone Encounter - Rhonda Dave - 10/12/2020 1:28 PM EST Caller requesting call back from provider: Is the caller the patient? YES If caller is not the patient, what is the callers name? N/A Callers relationship to patient? N/A If person calling is not the patient themselves, is there a verbal release in FYI or permanent comments for this person: NO Reason for call back: [facility] aid calling would like to speak to nurse reguarding patient inhaler asking for a alternative inhaler due to insurance issues Caller offered to speak with the nurse for assistance: YES Response: Patient offered to speak with nurse for assistance and patient agreed. Message forwarded to nurse. documented in this encounter Plan of Treatment Not on file documented as of this encounter Visit Diagnoses Not on filedocumented in this encounter Care Teams Director Biology Relationship Specialty Start Date End Date Michelle Norris MD PCP - General Internal Medicine 03/05/17 03/16/21 [facility], Pcp PCP - General Internal Medicine 03/17/21 05/04/21 Michelle Norris MD PCP - General Internal Medicine 05/05/21 09/13/22 Rosetta Diamond MD [address] [place] [address] PCP - General Internal Medicine 09/14/22 documented as of this encounter
--- OUTSIDE RECORDS SUMMARY | 2024-11-28 02:21 | XMS_ITS | Encounter Summary ---
Author Organization [facility] Address [address] [place] [address] Care Team Providers Care Investigator Operator Name Role Phone Nikki Alcantar MD Primary Care Provider [phone] Michelle Norris MD Primary Care Provider Unavail able [facility] Primary Care Provider [facility] Michelle Norris MD Primary Care Provider Unavail [facility] Rosetta Diamond MD Primary Care Provider + Encounter Details Date Type Department Care Team Description 09/15/2011 Hospital Medical Records [address] [place] [address] Jones Carmen [address] [place] [phone] Social History Tobacco Use Types Packs/Day Years [...] filedocumented in this encounter Care Teams Investigator Operator Relationship Specialty Start Date End Date Nikki Alcantar MD [address] [place] [address] PCP - General 06/26/05 03/04/17 Michelle Norris MD [address] [place] [address] PCP - General Internal Medicine 03/05/17 03/16/21 [facility], Pcp [address] [place] [phone] PCP - General Internal Medicine 03/17/21 05/04/21 Michelle Norris MD [address] [place] [address] PCP - General Internal Medicine 05/05/21 09/13/22 Rosetta Diamond MD [address] [place] [address] [phone] PCP - General Internal Medicine 09/14/22 documented as of this encounter
--- OUTSIDE RECORDS SUMMARY | 2024-11-28 02:21 | XMS_ITS | Encounter Summary ---
Author Organization [facility] Address [address] [place] [address] Care Team Providers Care Oiler Bander Name Role Phone Nikki Alcantar MD Primary Care Provider [phone] Michelle Norris MD Primary Care Provider Unavail able [facility] Primary Care Provider [facility] Michelle Norris MD Primary Care Provider Unavail able Rosetta Diamond MD Primary Care Provider + Reason for Visit * Reason Onset Date Comments Provider Call Back 11/26/2014 Encounter Details Date Type Department Care Team Description 11/26/2014 Telephone Adult Medicine [address] [phone] Nikki Alcantar MD [address] [place] [address] [phone] Provider Call Back Social History Tobacco Use [...] Miscellaneous Notes * Telephone Encounter - Sridevi Toscano - 11/26/2014 8:57 AM EST FYI Patient Was treated by behavioral health at [facility] Yesterday She is doing ok , no call backneeded documented in this encounter Plan of Treatment Not on file documented as of this encounter Visit Diagnoses Not on filedocumented in this encounter Care Teams Oiler Bander Relationship Specialty Start Date End Date Nikki Alcantar MD [address] [place] [address] PCP - General 06/26/05 03/04/17 Michelle Norris MD [address] [place] [phone] PCP - General Internal Medicine 03/05/17 03/16/21 [place] [id number] PCP - General Internal Medicine 03/17/21 05/04/21 Michelle Norris MD [address] [place] [address] PCP - General Internal Medicine 05/05/21 09/13/22 Rosetta Diamond MD [address] [place], [place] [phone] PCP - General Internal Medicine 09/14/22 documented as of this encounter
--- OUTSIDE RECORDS SUMMARY | 2024-11-28 02:21 | XMS_ITS | Encounter Summary ---
Author Organization [facility] Address [address] [place] [address] Care Team Providers Care Pm Technician Name Role Phone Michelle Norris MD Primary Care Provider Unavail able Rosetta Diamond MD Primary Care Provider + Encounter Details Date Type Department Care Team Description 06/15/2022 Business Doc Medical Records [address] [place] [id number] Abstract, Provider Social History Tobacco Use Types [...] Exposure Response Date Recorded In the last 10 days, have yo u been in contact with someone who was confirmed or suspected to have Coronavirus/COVID-19? No / Unsure 06/13/2022 2:30 PM EDT documented as of this encounter Plan of Treatment Not on file documented as of this encounter Visit Diagnoses Not on filedocumented in this encounter Care Teams Pm Technician Relationship Specialty Start Date End Date Michelle Norris MD PCP - General Internal Medicine 05/05/21 09/13/22 Rosetta Diamond MD [address] [place] [address] [id number] PCP - General Internal Medicine 09/14/22 documented as of this encounter
--- OUTSIDE RECORDS SUMMARY | 2024-11-28 02:22 | XMS_ITS | Encounter Summary ---
Author Organization [facility] Address [address] [place] [address] Care Team Providers Care Social Media Content Specialist Name Role Phone Nikki Alcantar MD Primary Care Provider [phone] Michelle Norris MD Primary Care Provider Unavail [facility], [facility] Primary Care Provider [facility] Michelle Norris MD Primary Care Provider Unavail [facility] Rosteta Diamond MD Primary Care Provider + Encounter Details Date Type Department Care Team Description 07/14/2013 Hospital Medical Records [address] [place] [phone] Social History Tobacco Use Types Packs/Day Years [...] on filedocumented in this encounter Care Teams Social Media Content Specialist Relationship Specialty Start Date End Date Nikki Alcantar MD [address] [place] [phone] PCP - General 06/26/05 03/04/17 Michelle Norris MD [address] [place] [address] PCP - General Internal Medicine 03/05/17 03/16/21 [facility], Pcp [address] [place] [address] PCP - General Internal Medicine 03/17/21 05/04/21 Michelle Norris MD [address] [place] [address] PCP - General Internal Medicine 05/05/21 09/13/22 Rosetta Diamond MD [address] [place] [address] KARTIK CHEN [address] PCP - General Internal Medicine 09/14/22 documented as of this encounter
--- OUTSIDE RECORDS SUMMARY | 2024-11-28 02:22 | XMS_ITS | Encounter Summary ---
Author Organization [facility] Address [address] [place] [address] Care Team Providers Care Hydraulics Teacher Name Role Phone Nikki Alcantar MD Primary Care Provider [phone] Michelle Norris MD Primary Care Provider Unavail [facility] Primary Care Provider [facility] Michelle Norris MD Primary Care Provider Unavail [facility] Rosetta Diamond MD Primary Care Provider + Encounter Details Date Type Department Care Team Description 07/06/2013 Hospital Medical Records [address] [place] [phone] Stefan Sanford MD Social History Tobacco Use Types Packs/Day [...] on filedocumented in this encounter Care Teams Hydraulics Teacher Relationship Specialty Start Date End Date Nikki Alcantar MD [address] [place] [phone] PCP - General 06/26/05 03/04/17 Michelle Norris MD [address] [place] [phone] PCP - General Internal Medicine 03/05/17 03/16/21 [facility]cp [address] [place] [address] PCP - General Internal Medicine 03/17/21 05/04/21 Michelle Norris MD [address] [place] [address] PCP - General Internal Medicine 05/05/21 09/13/22 Rosetta Diamond MD [address] [place] [address] PCP - General Internal Medicine 09/14/22 documented as of this encounter
--- OUTSIDE RECORDS SUMMARY | 2024-11-28 02:22 | XMS_ITS | Encounter Summary ---
Author Organization [facility] Address [address] [place] [address] Care Team Providers Care International Tax Manager Name Role Phone Michelle Norris MD Primary Care Provider Unavail able [facility], Pcp [facility] Michelle Norris MD Primary Care Provider Unavail able Rosetta Diamond MD Primary Care Provider + Encounter Details Date Type Department Care Team Description 07/20/2017 Business Doc Medical Records [address] [place] [id number] Abstract, Provider Social History Tobacco Use Types [...] on filedocumented in this encounter Care Teams International Tax Manager Relationship Specialty Start Date End Date Michelle Norris MD PCP - General Internal Medicine 03/05/17 03/16/21 [facility], Pcp PCP - General Internal Medicine 03/17/21 05/04/21 Michelle Norris MD PCP - General Internal Medicine 05/05/21 09/13/22 Rosetta Diamond MD [address] [place] [id number] PCP - General Internal Medicine 09/14/22 documented as of this encounter
--- OUTSIDE RECORDS SUMMARY | 2024-11-28 02:22 | XMS_ITS | Encounter Summary ---
Author Organization [facility] Address [address] [place] [address] Care Team Providers Care Dietitian Helper Name Role Phone Nikki Alcantar MD Primary Care Provider [phone] Michelle Norris MD Primary Care Provider Unavail [facility] Primary Care Provider [facility] Michelle Norris MD Primary Care Provider Unavail [facility] Rosetta Diamond MD Primary Care Provider + Encounter Details Date Type Department Care Team Description 07/13/2009 Hospital Medical Records [address] [place] [id number] Colon, Anabel Social History Tobacco Use Types Packs/Day Years [...] on filedocumented in this encounter Care Teams Dietitian Helper Relationship Specialty Start Date End Date Nikki Alcantar MD [address] [place] [address] PCP - General 06/26/05 03/04/17 Michelle Norris MD [address] [place] [address] PCP - General Internal Medicine 03/05/17 03/16/21 [facility], Pcp [address] [place] [address] PCP - General Internal Medicine 03/17/21 05/04/21 Michelle Norris MD [address] [place] [address] PCP - General Internal Medicine 05/05/21 09/13/22 Rosetta Diamond MD [address] [place] [address] PCP - General Internal Medicine 09/14/22 documented as of this encounter
--- OUTSIDE RECORDS SUMMARY | 2024-11-28 02:22 | XMS_ITS | Clinical Summary ---
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 Not Detected LAB MICROBIOLOGY METHOD 11/25/2024 9:[address] [facility] Influenza B PCR Not Detected Not Detected LAB MICROBIOLOGY METHOD 11/25/2024 9:55 PM [facility] Coronavirus 229E Not Detected Not Detected LAB MICROBIOLOGY METHOD 11/25/2024 9:55 PM [facility] Coronavirus HKU1 Not Detected Not Detected LAB MICROBIOLOGY METHOD 11/25/2024 9:55 PM [facility] Coronavirus OC43 Not Detected Not Detected LAB MICROBIOLOGY METHOD 11/25/2024 9:[address] [facility] Coronavirus NL63 Not Detected Not Detected LAB MICROBIOLOGY METHOD 11/25/2024 9:55 PM [facility] Parainfluenza Virus 1 Not Detected Not Detected LAB MICROBIOLOGY METHOD 11/25/2024 9:[address] [facility] Parainfluenza Virus 2 Not Detected Not Detected LAB MICROBIOLOGY METHOD 11/25/2024 9:55 PM [facility] Parainfluenza Virus 3 Not Detected Not Detected LAB MICROBIOLOGY METHOD 11/25/2024 9:[address] [facility] Parainfluenza Virus 4 Not Detected Not Detected LAB MICROBIOLOGY METHOD 11/25/2024 9:55 PM [facility] RSV PCR Not Detected Not Detected LAB MICROBIOLOGY METHOD 11/25/2024 9:55 PM [facility] Human Metapneumovirus A and B Not Detected Not Detected LAB MICROBIOLOGY METHOD 11/25/2024 9:55 PM [facility] Rhinovirus/Entero virus Not Detected Not Detected LAB MICROBIOLOGY METHOD 11/25/2024 9:55 PM [facility] Bordetella pertussis Not Detected Not Detected LAB MICROBIOLOGY METHOD 11/25/2024 9:55 PM [facility] Bordetella parapertussis Not Detected Not Detected LAB MICROBIOLOGY METHOD 11/25/2024 9:55 PM [facility] Mycoplasma pneumo by PCR Not Detected Not Detected LAB MICROBIOLOGY METHOD 11/25/2024 9:55 PM [facility] Chlamydia pneumoniae Not Detected Not Detected LAB MICROBIOLOGY METHOD 11/25/2024 9:55 PM [facility] SARS COV-2 Not Detected Not Detected LAB MICROBIOLOGY METHOD 11/25/2024 9:55 PM [facility] Sputum Both anterior nares / Unknown Non-blood Collection / Unknown 11/25/2024 8:24 PM EST 11/25/2024 8:52 PM EST [facility] - 11/25/2024 9:55 PM EST Testing was performed using the [employer]lexpo Respiratory Pathogen PCR Assay. All results must [...] that are below the limit of detection. Jimmy Alfonso MD LAB MICROBIOLOGY - GENERAL SARY SOLIZ Final Result [facility] [address] [place] [address], * (ABNORMAL) CBC auto differential (11/25/2024 8:24 PM EST) Only the most recent of8 resultswithin the time period is included. WBC 8.4 4.8 - 10.8 K/mcL LAB HEMETOLOGY METHOD 11/25/2024 9:01 PM [facility] RBC 4.30 3.80 - 4.80 M/mcL LAB HEMETOLOGY METHOD 11/25/2024 9:01 PM [facility] Hemoglobin 12.9 11.5 - 16.0 g/dL LAB HEMETOLOGY METHOD 11/25/2024 9:01 PM [facility] Hematocrit 40.1 35.0 - 47.0 % LAB HEMETOLOGY METHOD 11/25/2024 9:01 PM [facility] MCV 94.1 79.0 - 98.0 FL LAB HEMETOLOGY METHOD 11/25/2024 9:01 PM [facility] MCH 30.3 27.0 - 32.0 pcg LAB HEMETOLOGY METHOD 11/25/2024 9:01 PM [facility] MCHC 32.2 32.0 - 37.0 g/dL LAB HEMETOLOGY METHOD 11/25/2024 9:01 PM [facility] RDW 12.8 11.0 - 15.0 % LAB HEMETOLOGY METHOD 11/25/2024 9:01 PM [facility] Platelets 316 130 - 400 K/mcL LAB HEMETOLOGY METHOD 11/25/2024 9:01 PM [facility] MPV 9.3 7.0 - 11.0 FL LAB HEMETOLOGY METHOD 11/25/2024 9:01 PM [facility] NRBC 0.0 <1.0 % LAB HEMETOLOGY METHOD 11/25/2024 9:01 PM [facility] NRBC Absolute 0.00 <0.10 K/mcL LAB HEMETOLOGY METHOD 11/25/2024 9:01 PM [facility] Neutrophils Relative 66.9 % LAB HEMETOLOGY METHOD 11/25/2024 9:01 PM [facility] Lymphocytes Relative 19.3 % LAB HEMETOLOGY METHOD 11/25/2024 9:01 PM [facility] Monocytes Relative 9.5 % LAB HEMETOLOGY METHOD 11/25/2024 9:01 PM [facility] Eosinophils Relative 2.6 % LAB HEMETOLOGY METHOD 11/25/2024 9:01 PM [facility] Basophils Relative 0.4 % LAB HEMETOLOGY METHOD 11/25/2024 9:01 PM [facility] Immature Granulocytes Relative 1.3 % LAB HEMETOLOGY METHOD 11/25/2024 9:01 PM [facility] Neutrophils Absolute 5.59 1.50 - 7.00 K/mcL LAB HEMETOLOGY METHOD 11/25/2024 9:01 PM [facility] Lymphocytes Absolute 1.61 1.00 - 5.00 K/mcL LAB HEMETOLOGY METHOD 11/25/2024 9:01 PM [facility] Monocytes Absolute 0.79 0.20 - 1.00 K/mcL LAB HEMETOLOGY METHOD 11/25/2024 9:01 PM [facility] Eosinophils Absolute 0.22 0.00 - 0.50 K/mcL LAB HEMETOLOGY METHOD 11/25/2024 9:01 PM [facility] Basophils Absolute 0.03 0.00 - 0.20 K/mcL LAB HEMETOLOGY METHOD 11/25/2024 9:01 PM [facility] Immature Granulocytes Absolute 0.11(H) 0.00 - 0.03 K/mcL LAB HEMETOLOGY METHOD 11/25/2024 9:01 PM [facility] Blood Venous blood specimen / Unknown Venipuncture / Unknown 11/25/2024 8:24 PM EST 11/25/2024 8:52 PM EST us Jimmy Alfonso MD LAB BLOOD ORDERABLES Final Resu lt [facility] [address] [place] [address], * (ABNORMAL) Basic metabolic panel (11/25/2024 8:24 PM EST) Sodium 136 133 - 145 mmol/L LAB CHEMISTRY METHOD 11/25/2024 9:56 PM [facility] Potassium 3.9 3.5 - 5.5 mmol/L LAB CHEMISTRY METHOD 11/25/2024 9:56 PM [facility] Chloride 104 96 - 110 mmol/L LAB CHEMISTRY METHOD 11/25/2024 9:56 PM [facility] CO2 24 21 - 32 mmol/L LAB CHEMISTRY METHOD 11/25/2024 9:56 PM [facility] Anion Gap 8 3 - 11 LAB CHEMISTRY METHOD 11/25/2024 9:56 PM [facility] Glucose 260(H) 70 - 100 mg/dL LAB CHEMISTRY METHOD 11/25/2024 9:56 PM [facility] BUN 16 5 - 25 mg/dL LAB CHEMISTRY METHOD 11/25/2024 9:56 PM [facility] Creatinine 0.78 0.50 - 1.10 mg/dL LAB CHEMISTRY METHOD 11/25/2024 9:56 PM [facility] eGFR 95 >=60 mL/min/1. 73m2 LAB CHEMISTRY METHOD 11/25/2024 9:[address] [facility] Comment:Calculation based on the??Chronic Kidney Disease Epidemiology Collaboration (CKD-EPI) equation refit??without adjustment for race. BUN/Creatinine Ratio 20.5 LAB CHEMISTRY METHOD 11/25/2024 9:[address] [facility] Calcium 9.2 8.5 - 10.5 mg/dL LAB CHEMISTRY METHOD 11/25/2024 9:[address] [facility] Blood Venous blood specimen / Unknown Venipuncture / Unknown 11/25/2024 8:24 PM EST 11/25/2024 8:52 PM EST Jimmy Alfonso MD LAB BLOOD ORDERABLES Final Resu lt Performing Organization Address City/[facility]/ZIP Co de Phone Number [facility] [address] [place] [address], [place] [phone] * ECG 12 lead (11/25/2024 8:19 PM EST) Only the most recent of6 resultswithin the time period is included. Ventricular Rate ECG 126 BPM GEMUSE Atrial Rate 126 BPM GEM[facility] P-R Interval 154 ms GEMUSE QRS Duration 84 ms GEMUSE Q-T Interval 308 ms GEMUSE QTc 446 ms GEMUSE P Wave Lolo 58 degrees GEMUSE R Lolo 53 degrees GEMUSE T Lolo 67 degrees GEMUSE ECG Interpretation Sinus tachycardia Possible Left atrial enlargement Borderline ECG When compared with ECG of 01-NOV-2024 02:16, No significant change was found Confirmed by ESTHER THAO ([id number]) on 11/26/2024 11:33:46 AM GEMUSE 11/25/2024 8:19 PM EST 11/26/2024 11:33 AM EST us Jimmy Alfonso MD ECG ORDERABLES Final Result Performing Organization Address City/[facility]/ZIP Co de Phone Number GEMUSE * [place] top urine tube (11/02/2024 9:06 PM EST) Only the most recent of2 resultswithin the time period is included. Pathologist [facility] [place] Extra Tube Hold for add-ons. 11/03/2024 12:[address] [facility] Comment:Auto resulted. Urine Urine specimen obtained by clean catch procedure / Unknown 11/02/2024 9:06 PM EST 11/02/2024 10:06 PM EST Jimmy Alfonso MD LAB URINE ORDERABLES Final Resu lt Performing Organization Address [facility]/ZIP Co de Phone Number [facility] [address] [place] [address], * Buprenorphine screen, urine (11/02/2024 9:06 PM EST) Only the most recent of7 resultswithin the time period is included. [facility] Buprenorphine Screen Urine Negative Negative LAB CHEMISTRY METHOD 11/02/2024 10:[address] [facility] Urine Urine specimen obtained by clean catch procedure / Unknown Non-blood Collection / Unknown 11/02/2024 9:06 PM EST 11/02/2024 10:[address] [facility] - 11/02/2024 10:43 PM EST Assay cutoff 5 ng/mL Semi-quantitative assay for screening purposes only. Unconfirmed screening result should not be used for non-medical purposes. *ALTERNATE METHOD CONFIRMATION DONE UPON REQUEST ONLY* Jimmy Alfonso MD LAB URINE ORDERABLES Final Resu lt Performing Organization Address [facility]/ZIP Co de Phone Number [facility] [address] [place] [address], * Methadone, urine (11/02/2024 9:06 PM EST) Only the most recent of7 resultswithin the time period is included. Methadone Screen, Urine Negative Negative LAB CHEMISTRY METHOD 11/02/2024 10:[address] [facility] Comment: Assay cutoff 300 ng/mL [...] ORDERABLES Final Resu lt Performing Organization Address [facility] de Phone Number [facility] [address] [place] [address], * Phencyclidine, urine (11/02/2024 9:06 PM EST) Only the most recent of7 resultswithin the time period is included. PCP Scrn, Ur Negative Negative LAB CHEMISTRY METHOD 11/02/2024 10:[address] [facility] Comment: Assay cutoff 25 ng/mL [...] ORDERABLES Final Resu lt Performing Organization Address [facility] Co de Phone Number [facility] [address] [place] [address], * (ABNORMAL) Magnesium (11/01/2024 2:07 AM EST) Only the most recent of3 resultswithin the time period is included. Magnesium 1.8(L) 1.9 - 2.6 mg/dL LAB CHEMISTRY METHOD 11/01/2024 2:[address] [facility] Blood Venous blood specimen / Unknown Venipuncture / Unknown 11/01/2024 2:07 AM EST 11/01/2024 2:29 AM EST Dylan CAPELLAN LAB BLOOD ORDERABLES Final Resul t Performing Organization Address [facility]/ZIP Co de Phone Number [facility] [address] [place] [address], [place] [phone] * Lipase (11/01/2024 2:07 AM EST) Only the most recent of3 resultswithin the time period is included. Lipase 22 13 - 75 unit/L LAB CHEMISTRY METHOD 11/01/2024 2:57 AM [facility] Blood Venous blood specimen / Unknown Venipuncture / Unknown 11/01/2024 2:07 AM EST 11/01/2024 2:29 AM EST Dylan CAPELLAN LAB BLOOD ORDERABLES Final Resul t Performing Organization Address [facility]/ZIP Co de Phone Number [facility] [address] [place] [address], [place] [phone] * (ABNORMAL) Comprehensive Metabolic Panel (CMP) (11/01/2024 2:07 AM EST) Only the most recent of7 resultswithin the time period is included. Sodium 139 133 - 145 mmol/L LAB CHEMISTRY METHOD 11/01/2024 2:57 AM [facility] Potassium 3.5 3.5 - 5.5 mmol/L LAB CHEMISTRY METHOD 11/01/2024 2:57 AM [facility] Chloride 106 96 - 110 mmol/L LAB CHEMISTRY METHOD 11/01/2024 2:57 AM [facility] CO2 27 21 - 32 mmol/L LAB CHEMISTRY METHOD 11/01/2024 2:57 AM [facility] Anion Gap 6 3 - 11 LAB CHEMISTRY METHOD 11/01/2024 2:57 AM [facility] Glucose 130(H) 70 - 100 mg/dL LAB CHEMISTRY METHOD 11/01/2024 2:57 AM [facility] BUN 8 5 - 25 mg/dL LAB CHEMISTRY METHOD 11/01/2024 2:57 AM [facility] Creatinine 0.67 0.50 - 1.10 mg/dL LAB CHEMISTRY METHOD 11/01/2024 2:57 AM [facility] eGFR 109 >=60 mL/min/1. 73m2 LAB CHEMISTRY METHOD 11/01/2024 2:57 AM [facility] Comment:Calculation based on the??Chronic Kidney Disease Epidemiology Collaboration (CKD-EPI) equation refit??without adjustment for race. BUN/Creatinine Ratio 11.9 LAB CHEMISTRY METHOD 11/01/2024 2:57 AM [facility] Calcium 8.9 8.5 - 10.5 mg/dL LAB CHEMISTRY METHOD 11/01/2024 2:57 AM [facility] AST (SGOT) 24 10 - 42 unit/L LAB CHEMISTRY METHOD 11/01/2024 2:57 AM [facility] ALT (SGPT) 45 10 - 60 unit/L LAB CHEMISTRY METHOD 11/01/2024 2:57 AM [facility] Alkaline Phosphatase 164(H) 42 - 121 unit/L LAB CHEMISTRY METHOD 11/01/2024 2:57 AM [facility] Total Protein 6.4 6.0 - 8.0 g/dL LAB CHEMISTRY METHOD 11/01/2024 2:57 AM [facility] Albumin 3.4 3.2 - 5.0 g/dL LAB CHEMISTRY METHOD 11/01/2024 2:57 AM [facility] Total Bilirubin 0.1 0.0 - 1.4 mg/dL LAB CHEMISTRY METHOD 11/01/2024 2:57 AM [facility] Blood Venous blood specimen / Unknown Venipuncture / Unknown 11/01/2024 2:07 AM EST 11/01/2024 2:29 AM EST us Dylan CAPELLAN LAB BLOOD ORDERABLES Final Resul t Performing Organization Address [facility]/ZIP Co de Phone Number [facility] [address] [place] [address], [place] [phone] * Ethanol (10/30/2024 6:15 PM EST) Only the most recent of5 resultswithin the time period is included. Ethanol Level <3 0 - 10 mg/dL LAB CHEMISTRY METHOD 10/30/2024 8:[address] [facility] Blood Venous blood specimen / Unknown Venipuncture / Unknown 10/30/2024 6:15 PM EST 10/30/2024 6:55 PM EST Rosemary Shen Cash LAB BLOOD ORDERABLES Vidya l Result Performing Organization Address [facility] de Phone Number [facility] [address] [place] [address], * (ABNORMAL) Acetaminophen level (10/30/2024 6:15 PM EST) Only the most recent of5 resultswithin the time period is included. Acetaminophen Level <2.0(L) 10.0 - 30.0 mcg/mL LAB CHEMISTRY METHOD 10/30/2024 8:[address] [facility] Blood Venous blood specimen / Unknown Venipuncture / Unknown 10/30/2024 6:15 PM EST 10/30/2024 6:55 PM EST us Burnsbonifacio Cash LAB BLOOD ORDERABLES Vidya l Result Performing Organization Address City/[facility]/ZIP Co de Phone Number [facility] [address] [place] [address], * Salicylate level (10/30/2024 6:15 PM EST) Only the most recent of5 resultswithin the time period is included. Salicylate Level 4.2 2.0 - 29.0 mg/dL LAB CHEMISTRY METHOD 10/30/2024 8:[address] [facility] Blood Venous blood specimen / Unknown Venipuncture / Unknown 10/30/2024 6:15 PM EST 10/30/2024 6:55 PM EST us Rosemary Cash DO LAB BLOOD ORDERABLES Vidya l Result [facility] [address] [place] [address], [place] [phone] * XR Thoracic Spine 2 Views (10/20/2024 2:33 AM EST) Anatomical Region Laterality Modality Spine, T-spine Radiographic Renata ging 10/20/2024 8:50 AM EST Impressions 10/20/2024 8:52 AM EST The thoracic spine is moderately kyphotic as also seen on 09/07/2024. Otherwise, normal examination, without acute findings. Code 67205 -------- FINAL REPORT -------- Dictated By: Jefe Agrawal Dictated Date: 10/20/2024 08:50 ET Assigned Physician: Jefe Agrawal Reviewed and Electronically Signed By: Jefe Agrawal Signed Date: 10/20/2024 08:52 ET Workstation ID: [id number] Transcribed By: Self Edit Transcribed Date: 10/20/2024 08:50 ET Narrative 10/20/2024 8:52 AM EST HISTORY: The patient is a 48-year-old female with upper back pain following a fall. FINDINGS: AP and lateral radiographs of the thoracic spine demonstrate moderate kyphosis as also seen on the chest radiograph performed 09/07/2024. The alignment of the bony structures is otherwise anatomic. No fracture or osteolytic or osteoblastic lesion is seen. The disc spaces are well-maintained. Procedure Note Jefe Agrawal MD - 10/20/2024 HISTORY: The patient is a 48-year-old female with upper back painfollowing a fall. FINDINGS: AP and lateral radiographs of the thoracic spine demonstratemoderate kyphosis as also seen on the chest radiograph abxoqyxic94/24/2024. The alignment of the bony structures is otherwise anatomic. Nofracture or osteolytic or osteoblastic lesion is seen. The disc spaces arewell-maintained. IMPRESSION: The thoracic spine is moderately kyphotic as also seen on 09/07/2024.Otherwise, normal examination, without acute findings. Code 88997 -------- FINAL REPORT -------- Dictated By: Jefe Agrawal Dictated Date: 10/20/2024 08:50 ET Assigned Physician: Jefe Agrawal Reviewed and Electronically Signed By: Jefe Agrawal Signed Date: 10/20/2024 08:52 ET Workstation ID: [id number] Transcribed By: Self Edit Transcribed Date: 10/20/2024 08:50 ET [facility] Rigoberto Massey MD IMG XR PROCEDURES Final Result * XR Lumbar Spine 2-3 Views (10/20/2024 2:32 AM EST) Anatomical Region Laterality Modality Spine, L-spine Radiographic Renata ging 10/20/2024 8:16 AM EST Impressions 10/20/2024 8:18 AM EST Impression: No evidence of lumbar spine fracture or subluxation. [place] ([id number]) -------- FINAL REPORT -------- Dictated By: Eloina Mayo Dictated Date: 10/20/2024 08:16 ET Assigned Physician: Eloina Mayo Reviewed and Electronically Signed By: Eloina Mayo Signed Date: 10/20/2024 08:18 ET Workstation ID: [id number] Transcribed By: Self Edit Transcribed Date: 10/20/2024 08:16 ET Narrative 10/20/2024 8:18 AM EST History: Low back pain after fall. Findings: AP, lateral and coned lateral views without comparison studies. There are rudimentary 12th ribs and 5 nonrib-bearing lumbar-type vertebra in normal alignment. The vertebral bodies maintain normal height and the disc spaces are preserved. Minimal anterior vertebral endplate spurring is seen. The apophyseal joints are intact. The overlying soft tissues are unremarkable. The sacroiliac joints are well-maintained. Procedure Note Eloina Mayo MD - 10/20/2024 History: Low back pain after fall. Findings: AP, lateral and coned lateral views without comparison studies. There arerudimentary 12th ribs and 5 nonrib-bearing lumbar-type vertebra in normalalignment. The vertebral bodies maintain normal height and the disc spacesare preserved. Minimal anterior vertebral endplate spurring is seen. Theapophyseal joints are intact. The overlying soft tissues areunremarkable. The sacroiliac joints are well-maintained. IMPRESSION: Impression: No evidence of lumbar spine fracture or [place]luxation[place] ([id number]) -------- FINAL REPORT -------- Dictated By: Eloina Mayo Dictated Date: 10/20/2024 08:16 ET Assigned Physician: Eloina Mayo Reviewed and Electronically Signed By: Eloina Mayo Signed Date: 10/20/2024 08:18 ET Workstation ID: [id number] Transcribed By: Self Edit Transcribed Date: 10/20/2024 08:16 ET us Alberto Massey MD IMG XR PROCEDURES Final Result * CT Head wo Contrast (10/20/2024 2:22 AM EST) Anatomical Region Laterality Modality Head and Neck Computed Tomogra phy 10/20/2024 2:54 AM EST Impressions 10/20/2024 2:54 AM EST Impression: 1. No acute intracranial hemorrhage or process identified. This document has been electronically signed by: Delmy Greenwood MD on 10/20/2024 02:54:23 Narrative 10/20/2024 2:54 AM EST Exam: CT Brain without contrast Comparison: None Clinical history: Head trauma altered mental status Findings: No acute intracranial hemorrhage Ventricles are normal in size and position. No intracranial mass No midline shift. No abnormal extra-axial fluid collections. No skull fracture identified. Visualized paranasal sinuses are clear. Procedure Note Delmy Greenwood MD - 10/20/2024 Exam: CT Brain without contrast Comparison: None Clinical history: Head trauma altered mental status Findings: No acute intracranial hemorrhage Ventricles are normal in size and position. No intracranial mass No midline shift. No abnormal extra-axial fluid collections. No skull fracture identified. Visualized paranasal sinuses are clear. IMPRESSION: Impression: 1. No acute intracranial hemorrhage or process identified. This document has been electronically signed by: Delmy Greenwood MD on 10/20/2024 02:54:23 Alberto Massey MD IMG CT PROCEDURES Final Result * POC , urine manually resulted (10/18/2024 10:34 PM EST) Only the most recent of2 resultswithin the time period is included. HCG, Ur POC Negative Negative POC hCG Int QC Pass? Yes Yes Urine Urine specimen obtained by clean catch procedure / Unknown 10/18/2024 10:34 PM EST Pedro Arellano DO POINT OF CARE TEST ENTER/EDIT O RDERABLES Final Result * Pap smear (04/22/2024) 04/22/2024 Narrative HISTORICAL TESTING LAB RESULTING AGENCY - 04/28/2024 11:46 AM EDT [id number] THINPREP PAP, IMAGED: NEGATIVE FOR SQUAMOUS INTRAEPITHELIAL LESION AND MALIGNANCY GREG LANZA(ASCP) (CASE ELECTRONICALLY SIGNED 04 28 2024) RESULT OF APTIMA HIGH RISK HPV ASSAY: HIGH RISK HPV: ??NEGATIVE (SEROTYPES 16,18,31,33,35,39,45,51,52,56,58,59,66,68) COMPLETED ON 2024-04-24 ADEQUACY: SATISFACTORY ENDOCERVICAL/TRANSFORMATION ZONE COMPONENT PRESENT. SOURCE: THINPREP PAP HPV ANY DX: ??REFLEX 16 AND 18, CERVICAL, IMAGED CLINICAL INFORMATION: HPV ANY DIAGNOSIS. PAP HX NEGATIVE, [Z01.419] Rebecca Kimbrough CN LAB CYTOLOGY ORDERABLES Final Result HISTORICAL TESTING LAB RESULTING AGENCY * SCREENING MAMMOGRAPHY BI 2-VIEW BREAST INC CAD (06/13/2022 2:57 PM EDT) Anatomical Region Laterality Modality Radiographic Renata ging 06/07/2021 1:04 PM EDT Narrative 06/14/2022 3:51 PM EDT This is a summary report. The complete report is available in the patient's medical record. If you cannot access the medical record, please contact the sending organization for a detailed fax or copy. Full field digital screening 2D and tomosynthesis mammography, reviewed with CAD and compared to previous. ??The breasts are composed of fatty and fibroglandular tissue. ??No suspicious mass, architectural distortion or suspicious calcifications are identified. IMPRESSION: : No mammographic evidence of malignancy. BIRADS 1-Negative; N. 5 year breast cancer risk assessment 0.9 % Lifetime breast cancer risk assessment 10.7 % Breast cancer risk category Low (<15%) Procedure Note Raysa Alanis MD - 10/03/2022 This is a summary report. The complete report is available in thepatient's medical record. If you cannot access the medical record, pleasecontact the sending organization for a detailed fax or copy. Full field digital screening 2D and tomosynthesis mammography, reviewedwith CAD and compared to previous. The breasts are composed of fatty andfibroglandular tissue. No suspicious mass, architectural distortion orsuspicious calcifications are identified. IMPRESSION: : No mammographic evidence of malignancy. BIRADS 1-Negative; N. 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 Health Care Decision (hx) 07/03/2023 AD MARTINEZ DIRECTIVE Health Care Decision (hx) 07/03/2023 AD MARTINEZ DIRECTIVE Health Care Decision (hx) 07/03/2023 AD MARTINEZ DIRECTIVE Health Care Decision (hx) 07/03/2023 AD MARTINEZ DIRECTIVE Health Care Decision (hx) 07/03/2023 AD MARTINEZ DIRECTIVE Health Care Decision (hx) 07/03/2023 AD MARTINEZ DIRECTIVE Health Care Decision (hx) 07/03/2023 AD MARTINEZ DIRECTIVE Health Care Decision (hx) 07/03/2023 AD MARTINEZ DIRECTIVE Health Care Decision (hx) 07/03/2023 AD MARTINEZ DIRECTIVE Health Care Decision (hx) 07/03/2023 AD MARTINEZ DIRECTIVE Health Care Decision (hx) 07/03/2023 AD MARTINEZ DIRECTIVE Health Care Decision (hx) 07/03/2023 AD MARTINEZ DIRECTIVE Health Care Decision (hx) 07/03/2023 AD MARTINEZ DIRECTIVE Health Care Decision (hx) 07/03/2023 AD MARTINEZ DIRECTIVE Health Care Decision (hx) 07/03/2023 AD MARTINEZ DIRECTIVE Health Care Decision (hx) 07/03/2023 AD MARTINEZ DIRECTIVE Health Care Decision (hx) 07/03/2023 AD MARTINEZ DIRECTIVE Health Care Decision (hx) 07/03/2023 AD MARTINEZ DIRECTIVE Health Care Decision (hx) 07/03/2023 AD MARTINEZ DIRECTIVE Health Care Decision (hx) 07/03/2023 AD MARTINEZ DIRECTIVE Health Care Decision (hx) 07/03/2023 AD MARTINEZ DIRECTIVE Health Care Decision (hx) 07/03/2023 AD MARTINEZ DIRECTIVE Health Care Decision (hx) 07/03/2023 AD MARTINEZ DIRECTIVE Health Care Decision (hx) 07/03/2023 AD MARTINEZ DIRECTIVE Care Teams Scientific Informatics Project Leader Relationship Specialty Start Date End Date Maribel Marquez [address] [place] [address] PCP - General 09/08/24
--- OUTSIDE RECORDS SUMMARY | 2024-11-28 02:23 | XMS_ITS | Encounter Summary ---
Author Organization [facility] Address [address] [place] [address] Care Team Providers Care Decal Transferrer Name Role Phone Nikki Alcantar MD Primary Care Provider [phone] Michelle Norris MD Primary Care Provider Unavail [facility] Primary Care Provider [facility] Michelle Norris MD Primary Care Provider Unavail [facility] Rosetta Diamond MD Primary Care Provider + Encounter Details Date Type Department Care Team Description 12/13/2012 Hospital Medical Records [address] [place] [address] Marlen Grande Social History Tobacco Use Types [...] on filedocumented in this encounter Care Teams Decal Transferrer Relationship Specialty Start Date End Date Nikki Alcantar MD [address] [place] [address] PCP - General 06/26/05 03/04/17 Michelle Norris MD [address] [place] [address] 07352 PCP - General Internal Medicine 03/05/17 03/16/21 [facility]cp [address] [place] [address] 51504 PCP - General Internal Medicine 03/17/21 05/04/21 Michelle Norris MD [address] [place] [address] 04681 PCP - General Internal Medicine 05/05/21 09/13/22 Rosetta Diamond MD [address] [place] [address] PCP - General Internal Medicine 09/14/22 documented as of this encounter
--- OUTSIDE RECORDS SUMMARY | 2024-11-28 02:23 | XMS_ITS | Encounter Summary ---
Author Organization [facility] Address [address] [place] [address] Care Team Providers Care Tour Actor Name Role Phone Michelle Norris MD Primary Care Provider Unavail [facility] Michelel Norris MD Primary Care Provider Unavail able Rosetta Diamond MD Primary Care Provider + Encounter Details Date Type Department Care Team Description 08/08/2019 Old Medical Records Medical Records [address] [place] [address] Abstract, Provider Social History Tobacco Use Types [...] on filedocumented in this encounter Care Teams Tour Actor Relationship Specialty Start Date End Date Michelle Norris MD PCP - General Internal Medicine 03/05/17 03/16/21 [facility], Pcp PCP - General Internal Medicine 03/17/21 05/04/21 Michelle Norris MD PCP - General Internal Medicine 05/05/21 09/13/22 Rosetta Diamond MD [address] [place] [address] 39746 PCP - General Internal Medicine 09/14/22 documented as of this encounter
--- OUTSIDE RECORDS SUMMARY | 2024-11-28 02:23 | XMS_ITS | Encounter Summary ---
Author Organization [facility] Address [address] [place] [address] Care Team Providers Care Custodial Maintenance Worker Name Role Phone Nikki Alcantar MD Primary Care Provider [phone] Michelle Norris MD Primary Care Provider Unavail able [facility] Primary Care Provider [facility] Michelle Norris MD Primary Care Provider Unavail [facility] Rosetta Diamond MD Primary Care Provider + Encounter Details Date Type Department Care Team Description 01/28/2014 [facility] Medical Records [address] [place] [address] Abstract, Provider Social History Tobacco Use Types [...] on filedocumented in this encounter Care Teams Custodial Maintenance Worker Relationship Specialty Start Date End Date Nikki Alcantar MD [address] [place] [address] 61689 PCP - General 06/26/05 03/04/17 Michelle Norris MD [address] [place] [address] PCP - General Internal Medicine 03/05/17 03/16/21 [facility], Pcp [address] [place] [address] PCP - General Internal Medicine 03/17/21 05/04/21 Michelle Norris MD [address] [place] [address] 83591 PCP - General Internal Medicine 05/05/21 09/13/22 Rosetta Diamond MD [address] [place], [place] [phone] PCP - General Internal Medicine 09/14/22 documented as of this encounter
--- OUTSIDE RECORDS SUMMARY | 2024-11-28 02:23 | XMS_ITS | Encounter Summary ---
Author Organization [facility] Address [address] [place] [address] Care Team Providers Care Information Systems Auditor Name Role Phone Nikki Kumar MD Primary Care Provider [phone] Michelle Norris MD Primary Care Provider Unavail [facility] Michelle Norris MD Primary Care Provider Unavail able Rosetta Diamond MD Primary Care Provider + Reason for Visit * Reason Onset Date Comments Faxed Order 09/22/2016 Encounter Details Date Type Department Care Team Description 09/22/2016 Telephone Adult Medicine [address] [id number] Nikki Kumar MD [address] [place] [address] [phone] Faxed Order Social History Tobacco Use Types Packs/Day Years Used Date Smoking Tobacco: Every Day Cigarettes 1 15 Smokeless Tobacco: Never Comments:Started @ age 25 Alcohol Use Standard Drinks/Week Comments No 0 (1 standard drink = 0.6 oz pur e alcohol) Sex Assigned at Date Recorded Not on file Job Start Date Occupation Industry Not on file Not on file Not on file documented as of this encounter Miscellaneous Notes * Telephone Encounter - Dianne Anglin - 09/22/2016 1:37 PM EST Sign orders from [facility]. Fax placed in dr kumar's incoming. documented in this encounter Plan of Treatment Not on file documented as of this encounter Visit Diagnoses Not on filedocumented in this encounter Care Teams Information Systems Auditor Relationship Specialty Start Date End Date Nikki Kumar MD [address] [place] [address] PCP - General 06/26/05 03/04/17 Michelle Norris MD [address] [place] [address] 38921 PCP - General Internal Medicine 03/05/17 03/16/21 [place] [address] PCP - General Internal Medicine 03/17/21 05/04/21 Michelle Norris MD [address] [place] [address] 53363 PCP - General Internal Medicine 05/05/21 09/13/22 Rosetta Diamond MD [address] [place] [address] 68[address] PCP - General Internal Medicine 09/14/22 documented as of this encounter
--- OUTSIDE RECORDS SUMMARY | 2024-11-28 02:23 | XMS_ITS | Encounter Summary ---
Author Organization [facility] Address [address] [place] [address] Care Team Providers Care Garage Door Opener Installer Name Role Phone Nikki Alcantar MD Primary Care Provider [phone] Michelle Norris MD Primary Care Provider Unavail able [facility] Primary Care Provider [facility] Michelle Norris MD Primary Care Provider Unavail [facility] Rosetta Diamond MD Primary Care Provider + Encounter Details Date Type Department Care Team Description 10/04/2009 Hospital Medical Records [address] [place] [address] Bandar Ryan [address] [place] [address] Social History Tobacco Use Types Packs/Day Years [...] on filedocumented in this encounter Care Teams Garage Door Opener Installer Relationship Specialty Start Date End Date Nikki Alcantar MD [address] [place] [address] 38620 PCP - General 06/26/05 03/04/17 Michelle Norris MD [address] [place] [address] 50050 PCP - General Internal Medicine 03/05/17 03/16/21 [facility], Pcp [address] [place] [address] 86746 PCP - General Internal Medicine 03/17/21 05/04/21 Michelle Norris MD [address] [place] [address] 06166 PCP - General Internal Medicine 05/05/21 09/13/22 Rosetta Diamond MD [address] [place] [address]20 PCP - General Internal Medicine 09/14/22 documented as of this encounter
--- OUTSIDE RECORDS SUMMARY | 2024-11-28 02:23 | XMS_ITS | Encounter Summary ---
Author Organization [facility] Address [address] [place] [address] Care Team Providers Care Outbound Telemarketer Name Role Phone Nikki Alcantar MD Primary Care Provider [phone] Michelle Norris MD Primary Care Provider Unavail [facility] Primary Care Provider [facility] Michelle Norris MD Primary Care Provider Unavail [facility] Rosetta Diamond MD Primary Care Provider + Encounter Details Date Type Department Care Team Description 08/27/2016 Ticker Wirer Report Medical Records [address] [place] [address] Francis Booth I., PH.D Social History Tobacco Use Types Packs/Day Years [...] on filedocumented in this encounter Care Teams Outbound Telemarketer Relationship Specialty Start Date End Date Nikki Alcantar MD [address] [place] [address] 24[address] PCP - General 06/26/05 03/04/17 Michelle Norris MD [address] [place] [address] PCP - General Internal Medicine 03/05/17 03/16/21 [facility], Pcp [address] [place] [address] PCP - General Internal Medicine 03/17/21 05/04/21 Michelle Norris MD [address] [place] [address]6453 PCP - General Internal Medicine 05/05/21 09/13/22 Rosetta Diamond MD [address] [place] [address]20 PCP - General Internal Medicine 09/14/22 documented as of this encounter
--- OUTSIDE RECORDS SUMMARY | 2024-11-28 02:23 | XMS_ITS | Encounter Summary ---
Author Organization [facility] Address [address] [place] [address] Care Team Providers Care Trail Maintenance Worker Name Role Phone Nikki Alcantar MD Primary Care Provider [phone] Michelle Norris MD Primary Care Provider Unavail [facility] Primary Care Provider [facility] Michelle Norris MD Primary Care Provider Unavail [facility] Rosetta Diamond MD Primary Care Provider + Encounter Details Date Type Department Care Team Description 09/30/2010 Hospital Medical Records [address] [place] [address] Rolando Ku Social History Tobacco Use Types Packs/Day Years [...] on filedocumented in this encounter Care Teams Trail Maintenance Worker Relationship Specialty Start Date End Date Nikki Alcantar MD [address] [place] [address] 12453 PCP - General 06/26/05 03/04/17 Michelle Norris MD [address] [place] [address] PCP - General Internal Medicine 03/05/17 03/16/21 [facility], Pcp [address] [place] [address] PCP - General Internal Medicine 03/17/21 05/04/21 Michelle Norris MD [address] [place] [address] [place] [address] PCP - General Internal Medicine 05/05/21 09/13/22 Rosetta Diamond MD [address] [place], [place] [phone] PCP - General Internal Medicine 09/14/22 documented as of this encounter
--- OUTSIDE RECORDS SUMMARY | 2024-11-28 02:23 | XMS_ITS | Encounter Summary ---
Author Organization [facility] Address [address] [place] [address] Care Team Providers Care Administrative Asst Name Role Phone Michelle Norris MD Primary Care Provider Unavail able [facility] Michelle Lagos MD Primary Care Provider Unavail able Rosetta Diamond MD Primary Care Provider + Reason for Visit * Reason Onset Date Comments refill request 10/23/2019 lisinopril (PRIN IVIL,ZESTRIL) 5 MG tablet Encounter Details Date Type Department Care Team Description 10/23/2019 Refill Adult Medicine [address] [address] Michelle Norris MD refill request (lisinopril (PRINIVIL,ZESTRIL) 5 MG tablet) Social History Tobacco Use Types Packs/Day Years [...] encounter Miscellaneous Notes * Telephone Encounter - Michelle Norris MD - 10/23/2019 1:47 PM EST No showed appointment today has been in the hospital twice needs follow-up * Telephone Encounter - Mira Healy M.A. - 10/23/2019 1:44 PM EST Lab Results Component Value Date NA 137 11/06/2018 K 3.5 11/06/2018 CO2 20 11/06/2018 CL 107 11/06/2018 BUN 11 11/06/2018 CREAT 0.80 11/06/2018 GLU 130 11/06/2018 CA 8.7 11/06/2018 GFR > 60 11/06/2018 Pt was suppose to see pcp today at 1:30 * Telephone Encounter - April Miller - 10/23/2019 1:42 PM EST Patient would like script to be: E-PRESCRIBED/FAXED TO PHARMACY WHEN WAS THE PATIENT'S LAST APPOINTMENT IN ADULT MEDICINE? 09/24/19 WHEN WAS THE LAST TIME THE PATIENT SAW THEIR PCP? 09/03/19 Does patient have an upcoming appointment?hospital followup booking was sent to nurse (THE MEDICATION REQUESTED IS ON THE MED LIST ABOVE) All of the medications requested were on the CURRENT MEDS list Did you check the Pharmacy information above?: YES Patient wants: 90 -day supply Is this a mail order prescription request ? NO If the refill is from a FAXED refill request what is the RX # listed on the fax? N/A Patients current insurance carrier is: [place] / [place] / Product Type: [place]ARE [id number] documented in this encounter Plan of Treatment Not on file documented as of this encounter Visit Diagnoses Not on filedocumented in this encounter Care Teams Administrative Asst Relationship Specialty Start Date End Date Michelle Norris MD PCP - General Internal Medicine 03/05/17 03/16/21 [facility], Pcp PCP - General Internal Medicine 03/17/21 05/04/21 Michelle Norris MD PCP - General Internal Medicine 05/05/21 09/13/22 Rosetta Diamond MD [address] [place] [address] PCP - General Internal Medicine 09/14/22 documented as of this encounter
--- OUTSIDE RECORDS SUMMARY | 2024-11-28 02:23 | XMS_ITS | Encounter Summary ---
Author Organization [facility] Address [address] [place] [address] Care Team Providers Care Nut Blanker Operator Name Role Phone Nikki Alcantar MD Primary Care Provider [phone] Michelle Norris MD Primary Care Provider Unavail [facility] Primary Care Provider [facility] Michelle Norris MD Primary Care Provider Unavail able Rosetta Diamond MD Primary Care Provider + Reason for Visit * Reason Onset Date Comments Faxed Order 04/26/2016 Encounter Details Date Type Department Care Team Description 04/26/2016 Telephone Adult Medicine [facility] [address] [place] [address] [phone] Nikki Alcantar MD [address] [place] [address] [phone] Faxed Order Social History Tobacco Use Types Packs/Day Years Used Date Smoking Tobacco: Every Day Cigarettes 1 15 Smokeless Tobacco: Current Comments:Started @ age 25 Alcohol Use Standard Drinks/Week Comments No 0 (1 standard drink = 0.6 oz pur e alcohol) Sex Assigned at Date Recorded Not on file Job Start Date Occupation Industry Not on file Not on file Not on file documented as of this encounter Miscellaneous Notes * Telephone Encounter - Narda Chavarria - 04/26/2016 10:32 AM EDT [facility] would like Dr. Alcantar's signature on faxed orders documented in this encounter Plan of Treatment Not on file documented as of this encounter Visit Diagnoses Not on filedocumented in this encounter Care Teams Nut Blanker Operator Relationship Specialty Start Date End Date Nikki Alcantar MD [address] [place] [address] PCP - General 06/26/05 03/04/17 Michelle Norris MD [address] [place] [address]83 PCP - General Internal Medicine 03/05/17 03/16/21 [place] [address] PCP - General Internal Medicine 03/17/21 05/04/21 Michelle Norris MD [address] [place] [address] PCP - General Internal Medicine 05/05/21 09/13/22 Rosetta Diamond MD [address] [place] [address] PCP - General Internal Medicine 09/14/22 documented as of this encounter
--- OUTSIDE RECORDS SUMMARY | 2024-11-28 02:23 | XMS_ITS | Encounter Summary ---
Author Organization [facility] Address [address] [place] [address] Care Team Providers Care Escrow Clerk Name Role Phone Nikki Alcantar MD Primary Care Provider [phone] Michelle Norris MD Primary Care Provider Unavail [facility] Primary Care Provider [facility] Michelle Norris MD Primary Care Provider Unavail [facility] Rosetta Diamond MD Primary Care Provider + Encounter Details Date Type Department Care Team Description 12/16/2013 Hospital Medical Records [address] [place] [address] Marlen Grande Social History Tobacco Use Types [...] on filedocumented in this encounter Care Teams Escrow Clerk Relationship Specialty Start Date End Date Nkiki Alcantar MD [address] [place] [address] 13005 PCP - General 06/26/05 03/04/17 Michelle Norris MD [address] [place] [address] 99268 PCP - General Internal Medicine 03/05/17 03/16/21 [facility], Pcp [address] [place] [address] 42525 PCP - General Internal Medicine 03/17/21 05/04/21 Michelle Norris MD [address] [place] [address] 07429 PCP - General Internal Medicine 05/05/21 09/13/22 Rosetta Diamond MD [address] [place] [address]20 PCP - General Internal Medicine 09/14/22 documented as of this encounter
--- OUTSIDE RECORDS SUMMARY | 2024-11-28 02:23 | XMS_ITS | Encounter Summary ---
Author Organization [facility] Address [address] [place] [address] Care Team Providers Care Curriculum Assistant Name Role Phone Nikki Alcantar MD Primary Care Provider [phone] Michelle Norris MD Primary Care Provider Unavail [facility] Primary Care Provider [facility] Michelle Norris MD Primary Care Provider [facility] Rosetta Diamond MD Primary Care Provider + Encounter Details Date Type Department Care Team Description 01/19/2017 Business Doc Medical Records [address] [place] [address] 16142 Abstract, Provider Social History Tobacco Use Types [...] on filedocumented in this encounter Care Teams Curriculum Assistant Relationship Specialty Start Date End Date Nikki Alcantar MD [address] [place] [address] PCP - General 06/26/05 03/04/17 Michelle Norris MD [address] [place] [address] PCP - General Internal Medicine 03/05/17 03/16/21 [facility], Pcp [address] [place] [address] PCP - General Internal Medicine 03/17/21 05/04/21 Michelle Norris MD [address] [place] [address] [place] [address] PCP - General Internal Medicine 05/05/21 09/13/22 Rosetta Diamond MD [address] [place], [place] [phone] PCP - General Internal Medicine 09/14/22 documented as of this encounter
--- OUTSIDE RECORDS SUMMARY | 2024-11-28 02:23 | XMS_ITS | Encounter Summary ---
Author Organization [facility] Address [address] [place] [address] Care Team Providers Care Varnishing Unit Operator Name Role Phone Nikki Alcantar MD Primary Care Provider [phone] Michelle Norris MD Primary Care Provider Unavail [facility] Primary Care Provider [facility] Michelle Norris MD Primary Care Provider [facility] Rosetta Diamond MD Primary Care Provider + Encounter Details Date Type Department Care Team Description 09/06/2016 Home Health Certification Medical Records [address] [place] [address] Social History Tobacco Use Types Packs/Day Years [...] on filedocumented in this encounter Care Teams Varnishing Unit Operator Relationship Specialty Start Date End Date Nikki Alcantar MD [address] [place] [address] PCP - General 06/26/05 03/04/17 Michelle Norris MD [address] [place] [address] 20002 PCP - General Internal Medicine 03/05/17 03/16/21 [facility], Pcp [address] [place] [address] 89574 PCP - General Internal Medicine 03/17/21 05/04/21 Michelle Norris MD [address] [place] [address] 9[address]12 PCP - General Internal Medicine 05/05/21 09/13/22 Rosetta Diamond MD [address] [place], [place] [phone] PCP - General Internal Medicine 09/14/22 documented as of this encounter
--- OUTSIDE RECORDS SUMMARY | 2024-11-28 02:23 | XMS_ITS | Encounter Summary ---
Author Organization [facility] Address [address] [place] [address] Care Team Providers Care Emergency Vehicle Operator Name Role Phone Nikki Alcantar MD Primary Care Provider [phone] Michelle Norris MD Primary Care Provider Unavail able [facility] Primary [facility] Michelle Norris MD Primary Care Provider Unavail able Rosetta Diamond MD Primary Care Provider + Reason for Visit * Reason Onset Date Comments refill request 01/25/2017 Encounter Details Date Type Department Care Team Description 01/25/2017 Refill Adult Medicine [address] [id number] Nikki Alcantar MD [address] [place] [address] [phone] refill request Social History Tobacco Use Types [...] Telephone Encounter - Lucita Royal M.A. - 01/31/2017 12:28 PM EDT Message left for patient to return my call. * Telephone Encounter - Shama Razo PA-C - 01/31/2017 12:26 PM EDT Labs have still not been drawn. Please advise. Shama Razo PA-C * Telephone Encounter - Lucita Royal M.A. - 01/25/2017 4:29 PM EDT Message left for patient to return my call. * Telephone Encounter - Shama Razo PA-C - 01/25/2017 4:24 PM EDT This medication is prescribed for hypertension. The patient has not had renal labs performed since 2014 - they should be done every 6 months. She saw me on 01/17/17 for a physical exam and these labswere ordered, but she failed to report to have them drawn. I will refill this medication when labs are performed. Please notify patient. Shama Razo PA-C * Telephone Encounter - Nicole Phyllis - 01/25/2017 2:30 PM EDT Patient would like script to be: E-PRESCRIBED/FAXED TO PHARMACY WHEN WAS THE PATIENT'S LAST APPOINTMENT IN ADULT MEDICINE? 01/17/17 WHEN WAS THE LAST TIME THE PATIENT SAW THEIR PCP? 12/04/16 Does patient have an upcoming appointment? No-patient refused appointment, will call back to book appointment (THE MEDICATION REQUESTED IS ON THE MED LIST ABOVE) All of the medications requested were on the CURRENT MEDS list Did you check the Pharmacy information above?: YES Patient wants: 30 -day supply Is this a mail order prescription request ? NO Patients current [place] carrier is: [place] / [place] / Product Type: MEDICARE [id number] documented in this encounter Plan of Treatment Not on file documented as of this encounter Visit Diagnoses Not on filedocumented in this encounter Care Teams Emergency Vehicle Operator Relationship Specialty Start Date End Date Nikki Alcantar MD [address] [place] [address] PCP - General 06/26/05 03/04/17 Michelle Norris MD [address] [place] [address] PCP - General Internal Medicine 03/05/17 03/16/21 [place] [address] PCP - General Internal Medicine 03/17/21 05/04/21 Michelle Norris MD [address] [place] [address] PCP - General Internal Medicine 05/05/21 09/13/22 Rosetta Diamond MD [address] [place] [address] PCP - General Internal Medicine 09/14/22 documented as of this encounter
--- OUTSIDE RECORDS SUMMARY | 2024-11-28 02:23 | XMS_ITS | Encounter Summary ---
Author Organization [facility] Address [address] [place] [address] Care Team Providers Care Laborer Landscape Name Role Phone Nikki Alcantar MD Primary Care Provider [phone] Michelle Norris MD Primary Care Provider Unavail [facility] Primary Care Provider [facility] Michelle Norris MD Primary Care Provider Unavail [facility] Rosetta Diamond MD Primary Care Provider + Encounter Details Date Type Department Care Team Description 05/12/2010 Hospital Medical Records [address] [place] [address] RaúlRaquelSagar Social History Tobacco Use Types Packs/Day Years [...] on filedocumented in this encounter Care Teams Laborer Landscape Relationship Specialty Start Date End Date Nikki Alcantar MD [address] [place] [address] PCP - General 06/26/05 03/04/17 Michelle Norris MD [address] [place] [address] PCP - General Internal Medicine 03/05/17 03/16/21 [facility], Pcp [address] [place] [address] PCP - General Internal Medicine 03/17/21 05/04/21 Michelle Norris MD [address] [place] [address] [place] [address] PCP - General Internal Medicine 05/05/21 09/13/22 Rosetta Diamond MD [address] [place], [place] [phone] PCP - General Internal Medicine 09/14/22 documented as of this encounter
--- OUTSIDE RECORDS SUMMARY | 2024-11-28 02:23 | XMS_ITS | Encounter Summary ---
Author Organization [facility] Address [address] [place] [address] Care Team Providers Care Tennis Ball Cover Cementer Name Role Phone Nikki Alcantar MD Primary Care Provider [phone] Michelle Norris MD Primary Care Provider Unavail [facility] Primary Care Provider [facility] Michelle Norris MD Primary Care Provider Unavail [facility] Rosetta Diamond MD Primary Care Provider + Encounter Details Date Type Department Care Team Description 10/07/2010 Hospital Medical Records [address] [place] [address] Kuldeep Botello Social History Tobacco Use Types Packs/Day Years [...] on filedocumented in this encounter Care Teams Tennis Ball Cover Cementer Relationship Specialty Start Date End Date Nikki Alcantar MD [address] [place] [address] PCP - General 06/26/05 03/04/17 Michelle Norris MD [address] [place] [address] PCP - General Internal Medicine 03/05/17 03/16/21 [facility], Pcp [address] [place] [address] PCP - General Internal Medicine 03/17/21 05/04/21 Michelle Norris MD [address] [place] [address] [place] [address] PCP - General Internal Medicine 05/05/21 09/13/22 Rosetta Diamond MD [address] [place], [place] [phone] PCP - General Internal Medicine 09/14/22 documented as of this encounter
--- OUTSIDE RECORDS SUMMARY | 2024-11-28 02:23 | XMS_ITS | Encounter Summary ---
Author Organization [facility] Address [address] [place] [address] Care Team Providers Care Rubber Ball Finisher Name Role Phone Michelle Norris MD Primary Care Provider Unavail able [facility], Pcp Primary Care Provider UnavailMichelle Colvin MD Primary Care Provider Unavail able Rosetta Diamond MD Primary Care Provider + Reason for Visit * Reason Onset Date Comments Appointment Cancelled 10/30/2019 Encounter Details Date Type Department Care Team Description 10/30/2019 Telephone Adult [address] [address] Michelle Norris MD Appointment Cancelled Social History Tobacco Use Types Packs/Day Years [...] encounter Miscellaneous Notes * Telephone Encounter - Adina Lau - 10/30/2019 10:29 AM EST FYI-Call received from [facility] to cancel the 10/31 hospital f/u appointment. Patient is currently at [facility], admitted on 10/24/19. documented in this encounter Plan of Treatment Not on file documented as of this encounter Visit Diagnoses Not on filedocumented in this encounter Care Teams Rubber Ball Finisher Relationship Specialty Start Date End Date Michelle Norris MD PCP - General Internal Medicine 03/05/17 03/16/21 [facility], Pcp PCP - General Internal Medicine 03/17/21 05/04/21 Michelle Norris MD PCP - General Internal Medicine 05/05/21 09/13/22 Rosetta Diamond MD [address] [place] [address] PCP - General Internal Medicine 09/14/22 documented as of this encounter
--- OUTSIDE RECORDS SUMMARY | 2024-11-28 02:23 | XMS_ITS | Encounter Summary ---
Author Organization [facility] Address [address] [place] [address] Care Team Providers Care Production Supervisor Off Shift Name Role Phone Nikki Alcantar MD Primary Care Provider [phone] Michelle Norris MD Primary Care Provider Unavail able [facility] Michelle Norris MD Primary Care Provider Unavail able Rosetta Diamond MD Primary Care Provider + Reason for Visit * Reason Onset Date Comments VNA Call 09/05/2016 Encounter Details Date Type Department Care Team Description 09/05/2016 Telephone Adult Medicine [address] [phone] Nikki Alcantar MD [address] [place] [address] [phone] VNA Call Social History Tobacco Use Types [...] encounter Miscellaneous Notes * Telephone Encounter - Karin Luke - 09/05/2016 9:18 AM EST VNA CALL Which VNA office is calling? [facility] Full name of caller: alberta The caller is A nurse Is the caller at the patients home?: NO Reason for call: [facility] [employer], has sent orders to us and they need this filled , Please call Does caller need an urgent call back? NO Was CONTACT Telephone # obtained above?: YES Fax #: documented in this encounter Plan of Treatment Not on file documented as of this encounter Visit Diagnoses Not on filedocumented in this encounter Care Teams Production Supervisor Off Shift Relationship Specialty Start Date End Date Nikki Alcantar MD [address] [place] [address] PCP - General 06/26/05 03/04/17 Michelle Norris MD [address] [place] [address] PCP - General Internal Medicine 03/05/17 03/16/21 [place] [address] PCP - General Internal Medicine 03/17/21 05/04/21 Michelle Norris MD [address] [place] [address] PCP - General Internal Medicine 05/05/21 09/13/22 Rosetta Diamond MD [address] [place] [address] PCP - General Internal Medicine 09/14/22 documented as of this encounter
--- OUTSIDE RECORDS SUMMARY | 2024-11-28 02:23 | XMS_ITS | Encounter Summary ---
Author Organization [facility] Address [address] [place] [address] Care Team Providers Care Heel Shaper Name Role Phone Nikki Alcantar MD Primary Care Provider [phone] Michelle Norris MD Primary Care Provider Unavail [facility] Primary Care Provider [facility] Michelle Norris MD Primary Care Provider Unavail [facility] Rosetta iDamond MD Primary Care Provider + Encounter Details Date Type Department Care Team Description 06/10/2013 Hospital Medical Records [address] [place] [id number] Miles Shah MD Social History Tobacco Use [...] on filedocumented in this encounter Care Teams Heel Shaper Relationship Specialty Start Date End Date Nikki Alcantar MD [address] [place] [address] PCP - General 06/26/05 03/04/17 Michelle Norris MD [address] [place] [address] PCP - General Internal Medicine 03/05/17 03/16/21 [facility], Pcp [address] [place] [address] PCP - General Internal Medicine 03/17/21 05/04/21 Michelle Norris MD [address] [place] [address] PCP - General Internal Medicine 05/05/21 09/13/22 Rosetta Diamond MD [address] [place] [address] PCP - General Internal Medicine 09/14/22 documented as of this encounter
--- OUTSIDE RECORDS SUMMARY | 2024-11-28 02:23 | XMS_ITS | Encounter Summary ---
Author Organization [facility] Address [address] [place] [address] Care Team Providers Care Mental Health Aide Name Role Phone Michelle Norris MD Primary Care Provider Unavail able [facility] Primary Care Provider [facility] Michelle Lagos MD Primary Care Provider Unavail able Rosetta Diamond MD Primary Care Provider + Reason for Visit * Reason Onset Date Comments er follow up 07/24/2019 pt seen at [facility] for SI and depression Encounter Details Date Type Department Care Team Description 07/24/2019 Telephone Adult Medicine [address] [address] Michelle Norris MD er follow up (pt seen at [facility] ED for SI and depression) Social History Tobacco Use Types Packs/Day Years [...] encounter Miscellaneous Notes * Telephone Encounter - Nanette De Jesus R.N. - 07/24/2019 9:40 AM EDT Pt seen at the [place] ED for SI and depression. Was cleared by N for discharge. documented in this encounter Plan of Treatment Not on file documented as of this encounter Visit Diagnoses Not on filedocumented in this encounter Care Teams Mental Health Aide Relationship Specialty Start Date End Date Michelle Norris MD PCP - General Internal Medicine 03/05/17 03/16/21 [facility], Pcp PCP - General Internal Medicine 03/17/21 05/04/21 Michelle Norris MD PCP - General Internal Medicine 05/05/21 09/13/22 Rosetta Diamond MD [address] [place] [address] PCP - General Internal Medicine 09/14/22 documented as of this encounter
--- OUTSIDE RECORDS SUMMARY | 2024-11-28 02:23 | XMS_ITS | Encounter Summary ---
Author Organization [facility] Address [address] [place] [address] Care Team Providers Care Photographic Double Name Role Phone Michelle Norris MD Primary Care Provider Unavail able [facility] Pcp [facility] Michelle Norris MD Primary Care Provider Unavail able Rosetta Diamond MD Primary Care Provider + Encounter Details Date Type Department Care Team Description 03/08/2017 Hospital Medical Records [address] [place] [address] Sourav Lucas Social History Tobacco Use Types [...] on filedocumented in this encounter Care Teams Photographic Double Relationship Specialty Start Date End Date Michelle Norris MD PCP - General Internal Medicine 03/05/17 03/16/21 [facility], Pcp PCP - General Internal Medicine 03/17/21 05/04/21 Michelle Norris MD PCP - General Internal Medicine 05/05/21 09/13/22 Rosetta Diamond MD [address] [place] [address] PCP - General Internal Medicine 09/14/22 documented as of this encounter
--- OUTSIDE RECORDS SUMMARY | 2024-11-28 02:23 | XMS_ITS | Encounter Summary ---
Author Organization [facility] Address [address] [place] [address] Care Team Providers Care Pole Frame Construction Worker Name Role Phone Nikki Alcantar MD Primary Care Provider [phone] Michelle Norris MD Primary Care Provider Unavail [facility] Primary Care Provider [facility] Michelle Norris MD Primary Care Provider Unavail [facility] Rosetta Diamond MD Primary Care Provider + Encounter Details Date Type Department Care Team Description 11/01/2009 Hospital Medical Records [address] [place] [address] John Jett Social History Tobacco Use Types Packs/Day Years [...] on filedocumented in this encounter Care Teams Pole Frame Construction Worker Relationship Specialty Start Date End Date Nikki Alcantar MD [address] [place] [address] PCP - General 06/26/05 03/04/17 Michelle Norris MD [address] [place] [address] PCP - General Internal Medicine 03/05/17 03/16/21 [facility], Pcp [address] [place] [address] PCP - General Internal Medicine 03/17/21 05/04/21 Michelle Norris MD [address] [place] [address] [place] [address] PCP - General Internal Medicine 05/05/21 09/13/22 Rosetta Diamond MD [address] [place], [place] [phone] PCP - General Internal Medicine 09/14/22 documented as of this encounter
--- OUTSIDE RECORDS SUMMARY | 2024-11-28 02:23 | XMS_ITS | Encounter Summary ---
Author Organization [facility] Address [address] [place] [address] Care Team Providers Care Scrape Gatherer Name Role Phone Nikki Alcantar MD Primary Care Provider [phone] Michelle Norris MD Primary Care Provider Unavail [facility] Primary Care Provider [facility] Michelle Norris MD Primary Care Provider Unavail [facility] Rosetta Diamond MD Primary Care Provider + Encounter Details Date Type Department Care Team Description 11/28/2012 Brass Pourer Report Medical Records [address] [place] [address] Julio Paredes MD Social History Tobacco Use [...] on filedocumented in this encounter Care Teams Scrape Gatherer Relationship Specialty Start Date End Date Nikki Alcantar MD [address] [place] [address] PCP - General 06/26/05 03/04/17 Michelle Norris MD [address] [place] [address] PCP - General Internal Medicine 03/05/17 03/16/21 [facility], Pcp [address] [place] [address] PCP - General Internal Medicine 03/17/21 05/04/21 Michelle Norris MD [address] [place] [address] [place] [address] PCP - General Internal Medicine 05/05/21 09/13/22 Rosetta Diamond MD [address] [place], [place] [phone] PCP - General Internal Medicine 09/14/22 documented as of this encounter
--- OUTSIDE RECORDS SUMMARY | 2024-11-28 02:23 | XMS_ITS | Encounter Summary ---
Author Organization [facility] Address [address] [place] [address] Care Team Providers Care Marine Firefighter Name Role Phone Nikki Alcantar MD Primary Care Provider Michelle Norris MD Primary Care Provider Unavail [facility] Primary Care Provider [facility] Michelle Norris MD Primary Care Provider Unavail [facility] Rosetta Diamond MD Primary Care Provider + Encounter Details Date Type Department Care Team Description 07/10/2011 Hospital Medical Records [address] [place] [address] Julio Gilmore Social History Tobacco Use Types Packs/Day Years [...] on filedocumented in this encounter Care Teams Marine Firefighter Relationship Specialty Start Date End Date Nikki Alcantar MD [address] [place] [address] PCP - General 06/26/05 03/04/17 Michelle Norris MD [address] [place] [address] PCP - General Internal Medicine 03/05/17 03/16/21 [facility], Pcp [address] [place] [address] PCP - General Internal Medicine 03/17/21 05/04/21 Michelle Norris MD [address] [place] [address] PCP - General Internal Medicine 05/05/21 09/13/22 Rosetta Diamond MD [address] [place] [address] PCP - General Internal Medicine 09/14/22 documented as of this encounter
--- OUTSIDE RECORDS SUMMARY | 2024-11-28 02:23 | XMS_ITS | Encounter Summary ---
Author Organization [facility] Address [address] [place] [address] Care Team Providers Care Electrolysis Engineer Name Role Phone Michelle Norris MD Primary Care Provider Unavail able [facility]cp [facility] Michelle Norris MD Primary Care Provider Unavail able Rosetta Diamond MD Primary Care Provider + Encounter Details Date Type Department Care Team Description 08/09/2019 Old Medical Records Medical Records [address] [place] [address] Abstract, Provider Social History Tobacco Use Types [...] on filedocumented in this encounter Care Teams Electrolysis Engineer Relationship Specialty Start Date End Date Michelle Norris MD PCP - General Internal Medicine 03/05/17 03/16/21 [facility], Pcp PCP - General Internal Medicine 03/17/21 05/04/21 Michelle Norris MD PCP - General Internal Medicine 05/05/21 09/13/22 Rosetta Diamond MD [address] [place] [address] PCP - General Internal Medicine 09/14/22 documented as of this encounter
--- OUTSIDE RECORDS SUMMARY | 2024-11-28 02:23 | XMS_ITS | Encounter Summary ---
Author Organization [facility] Address [address] [place] [address] Care Team Providers Care Vp Packaging Name Role Phone Nikki Alcantar MD Primary Care Provider [phone] Michelle Norris MD Primary Care Provider Unavail [facility] Primary Care Provider [facility] Michelle Norris MD Primary Care Provider Unavail [facility] Rosetta iDamond MD Primary Care Provider + Encounter Details Date Type Department Care Team Description 10/30/2009 Hospital Medical Records [address] [place] [address] Reena Dominguez Social History Tobacco Use Types Packs/Day Years [...] on filedocumented in this encounter Care Teams Vp Packaging Relationship Specialty Start Date End Date Nikki Alcantar MD [address] [place] [address] PCP - General 06/26/05 03/04/17 Michelle Norris MD [address] [place] [address] PCP - General Internal Medicine 03/05/17 03/16/21 [facility], Pcp [address] [place] [address] PCP - General Internal Medicine 03/17/21 05/04/21 Michelle Norris MD [address] [place] [address] [place] [address] PCP - General Internal Medicine 05/05/21 09/13/22 Rosetta Diamond MD [address] [place], [place] [phone] PCP - General Internal Medicine 09/14/22 documented as of this encounter
--- OUTSIDE RECORDS SUMMARY | 2024-11-28 02:23 | XMS_ITS | Encounter Summary ---
Author Organization [facility] Address [address] [place] [address] Care Team Providers Care Protector Plate Attacher Name Role Phone Nikki Alcantar MD Primary Care Provider [phone] Michelle Norris MD Primary Care Provider Unavail [facility] Primary Care Provider [facility] Michelle Norris MD Primary Care Provider Unavail [facility] Rosetta Diamond MD Primary Care Provider + Encounter Details Date Type Department Care Team Description 09/25/2016 Hospital Medical Records [address] [place] [address] Abstract, Provider Social History Tobacco Use Types [...] on filedocumented in this encounter Care Teams Protector Plate Attacher Relationship Specialty Start Date End Date Nikki Alcantar MD [address] [place] [address] PCP - General 06/26/05 03/04/17 Michelle Norris MD [address] [place] [address] PCP - General Internal Medicine 03/05/17 03/16/21 [facility], Pcp [address] [place] [address] PCP - General Internal Medicine 03/17/21 05/04/21 Michelle Norris MD [address] [place] [address] PCP - General Internal Medicine 05/05/21 09/13/22 Rosetta Diamond MD [address] [place], [place] [phone] PCP - General Internal Medicine 09/14/22 documented as of this encounter
--- OUTSIDE RECORDS SUMMARY | 2024-11-28 02:23 | XMS_ITS | Encounter Summary ---
Author Organization [facility] Address [address] [place] [address] Care Team Providers Care Doorshaker Name Role Phone Nikki Alcantar MD Primary Care Provider Michelle Norris MD Primary Care Provider Unavail [facility] Primary Care Provider [facility] Michelle Norris MD Primary Care Provider Unavail [facility] Rosetta Diamond MD Primary Care Provider + Encounter Details Date Type Department Care Team Description 05/11/2016 Hospital Medical Records [address] [place] [address] Chuck Dave MD Social History Tobacco Use Types Packs/Day [...] on filedocumented in this encounter Care Teams Doorshaker Relationship Specialty Start Date End Date Nikki Alcantar MD [address] [place] [address] PCP - General 06/26/05 03/04/17 Michelle Norris MD [address] [place] [address] PCP - General Internal Medicine 03/05/17 03/16/21 [facility], Pcp [address] [place] [address] PCP - General Internal Medicine 03/17/21 05/04/21 Michelle Norris MD [address] [place] [address] PCP - General Internal Medicine 05/05/21 09/13/22 Rosetta Diamond MD [address] [place] [address] PCP - General Internal Medicine 09/14/22 documented as of this encounter
--- OUTSIDE RECORDS SUMMARY | 2024-11-28 02:23 | XMS_ITS | Encounter Summary ---
Author Organization [facility] Address [address] [place] [address] Care Team Providers Care Video Recorder Mechanic Name Role Phone Nikki Alcantar MD Primary Care Provider [phone] Michelle Norris MD Primary Care Provider Unavail [facility] Primary Care Provider [facility] Michelle Norris MD Primary Care Provider Unavail [facility] Rosetta Diamond MD Primary Care Provider + Encounter Details Date Type Department Care Team Description 05/22/2009 Hospital Medical Records [address] [place] [id number] Shelly Espana MD Social History Tobacco Use Types Packs/Day [...] on filedocumented in this encounter Care Teams Video Recorder Mechanic Relationship Specialty Start Date End Date Nikki Alcantar MD [address] [place] [address] PCP - General 06/26/05 03/04/17 Michelle Norris MD [address] [place] [address] PCP - General Internal Medicine 03/05/17 03/16/21 [facility]ly [facility], Pcp [address] [place] [address] PCP - General Internal Medicine 03/17/21 05/04/21 Michelle Norris MD [address] [place] [address] [place] [address] PCP - General Internal Medicine 05/05/21 09/13/22 Rosetta Diamond MD [address] [place], [place] [phone] PCP - General Internal Medicine 09/14/22 documented as of this encounter
--- OUTSIDE RECORDS SUMMARY | 2024-11-28 02:23 | XMS_ITS | Encounter Summary ---
Author Organization [facility] Address [address] [place] [address] Care Team Providers Care Hot Mill Tin Roller Name Role Phone Michelle Norris MD Primary Care Provider Unavail able [facility], 1928–1983, Pcp Primary Care Provider Unavailabl Michelle Lagos MD Primary Care Provider Unavail able Rosetta Diamond MD Primary Care Provider + Reason for Visit * Reason Onset Date Comments Medication 12/16/2019 Colonoscopy Encounter Details Date Type Department Care Team Description 12/16/2019 Refill Gastroenterology - [address] [place] [phone] Reese Powers MD Medication (Colonoscopy) Social History Tobacco Use Types Packs/Day Years [...] encounter Miscellaneous Notes * Telephone Encounter - Reese Powers MD - 12/16/2019 12:06 PM EST Chart reviewed. It looks like a consultation was requested for this patient, not a colonoscopy. I do not see any indication for colonoscopy. Please cancel the colonoscopy appointment and schedule this patient for a consultation with us. * Telephone Encounter - Delfina Villavicencio - 12/16/2019 11:42 AM EST Patient is requesting Miralax as the Golytely makes her vomit. documented in this encounter Plan of Treatment Not on file documented as of this encounter Visit Diagnoses Not on filedocumented in this encounter Care Teams Hot Mill Tin Roller Relationship Specialty Start Date End Date Michelle Norris MD PCP - General Internal Medicine 03/05/17 03/16/21 Formerly [facility], [facility], [facility] PCP - General Internal Medicine 03/17/21 05/04/21 Michelle Norris MD PCP - General Internal Medicine 05/05/21 09/13/22 Rosetta Diamond MD [address] [place] [address] PCP - General Internal Medicine 09/14/22 documented as of this encounter
--- OUTSIDE RECORDS SUMMARY | 2024-11-28 02:23 | XMS_ITS | Encounter Summary ---
Author Organization [facility] Address [address] [place] [address] Care Team Providers Care Armored Cable Machine Operator Name Role Phone Nikki Alcantar MD Primary Care Provider Michelle Norris MD Primary Care Provider Unavail [facility] Primary Care Provider [facility] Michelle Norris MD Primary Care Provider Unavail [facility] Rosetta Diamond MD Primary Care Provider + Encounter Details Date Type Department Care Team Description 08/19/2009 Hospital Medical Records [address] [place] [address] Sumeet Yadav Social History Tobacco Use Types Packs/Day Years [...] on filedocumented in this encounter Care Teams Armored Cable Machine Operator Relationship Specialty Start Date End Date Nikki Alcantar MD [address] [place] [address] PCP - General 06/26/05 03/04/17 Michelle Nroris MD [address] [place] [address] PCP - General Internal Medicine 03/05/17 03/16/21 [facility], Pcp [address] [place] [address] PCP - General Internal Medicine 03/17/21 05/04/21 Michelle Norris MD [address] [place] [address] [place] [address] PCP - General Internal Medicine 05/05/21 09/13/22 Rosetta Diamond MD [address] [place], [place] [phone] PCP - General Internal Medicine 09/14/22 documented as of this encounter
--- OUTSIDE RECORDS SUMMARY | 2024-11-28 02:23 | XMS_ITS | Encounter Summary ---
Author Organization [facility] Address [address] [place] [address] Care Team Providers Care Mental Health Advanced Practice Nurse Name Role Phone Nikki Alcantar MD Primary Care Provider [phone] Michelle Norris MD Primary Care Provider Unavail [facility] Primary Care Provider [facility] Michelle Norris MD Primary Care Provider [facility] Rosetta Diamond MD Primary Care Provider + Encounter Details Date Type Department Care Team Description 11/15/2010 Business Doc Medical Records [address] [place] [id number] Abstract, Provider Social History Tobacco Use Types Packs/Day Years Used Date Smoking Tobacco: Every Day Cigarettes 1 Comments:Started @ age 32 Alcohol Use Standard [...] in this encounter Care Teams Mental Health Advanced Practice Nurse Relationship Specialty Start Date End Date Nikki Alacntar MD [address] [place] [address] PCP - General 06/26/05 03/04/17 Michelle Norris MD [address] [place] [address] PCP - General Internal Medicine 03/05/17 03/16/21 [facility], Pcp [address] [place] [address] PCP - General Internal Medicine 03/17/21 05/04/21 Michelle Norris MD [address] [place] [address] PCP - General Internal Medicine 05/05/21 09/13/22 Rosetta Diamond MD [address] [place] [address] PCP - General Internal Medicine 09/14/22 documented as of this encounter
--- OUTSIDE RECORDS SUMMARY | 2024-11-28 02:23 | XMS_ITS | Encounter Summary ---
Author Organization [facility] Address [address] [place] [address] Care Team Providers Care Gas Charger Name Role Phone Nikki Alcantar MD Primary Care Provider [phone] Michelle Norris MD Primary Care Provider Unavail [facility] Primary Care Provider [facility] Michelle Norris MD Primary Care Provider Unavail [facility] Rosetta Diamond MD Primary Care Provider + Encounter Details Date Type Department Care Team Description 05/24/2016 Hospital Medical Records [address] [place] [address] Chuck Dave MD Social History Tobacco Use [...] on filedocumented in this encounter Care Teams Gas Charger Relationship Specialty Start Date End Date Nikki Alcantar MD [address] [place] [address] PCP - General 06/26/05 03/04/17 Michelle Norris MD [address] [place] [address] PCP - General Internal Medicine 03/05/17 03/16/21 [facility], Pcp [address] [place] [address] PCP - General Internal Medicine 03/17/21 05/04/21 Michelle Norris MD [address] [place] [address] PCP - General Internal Medicine 05/05/21 09/13/22 Rosetta Diamond MD [address] [place] [address] PCP - General Internal Medicine 09/14/22 documented as of this encounter
--- OUTSIDE RECORDS SUMMARY | 2024-11-28 02:23 | XMS_ITS | Encounter Summary ---
Author Organization [facility] Address [address] [place] [address] Care Team Providers Care Science Interpreter Name Role Phone Nikki Alcantar MD Primary Care Provider [phone] Michelle Norris MD Primary Care Provider Unavail [facility] Primary Care Provider [facility] Michelle Norris MD Primary Care Provider Unavail [facility] Rosetta Diamond MD Primary Care Provider + Encounter Details Date Type Department Care Team Description 11/11/2016 Hospital Medical Records [address] [place] [phone] Andrew Rollins Social History Tobacco Use Types Packs/Day Years [...] on filedocumented in this encounter Care Teams Science Interpreter Relationship Specialty Start Date End Date Nikki Alcantar MD [address] [place] [address] PCP - General 06/26/05 03/04/17 Michelle Norris MD [address] [place] [address] PCP - General Internal Medicine 03/05/17 03/16/21 [facility], Pcp [address] [place] [address] PCP - General Internal Medicine 03/17/21 05/04/21 Michelle Norris MD [address] [place] [address] PCP - General Internal Medicine 05/05/21 09/13/22 Rosetta Diamond MD [address] [place] [address] PCP - General Internal Medicine 09/14/22 documented as of this encounter
--- OUTSIDE RECORDS SUMMARY | 2024-11-28 02:23 | XMS_ITS | Encounter Summary ---
Author Organization [facility] Address [address] [place] [address] Care Team Providers Care Dump Truck Driver Name Role Phone Nikki Alcantar MD Primary Care Provider [phone] Michelle Norris MD Primary Care Provider Unavail [facility] Primary Care Provider [facility] Michelle Norris MD Primary Care Provider Unavail [facility] Rosetta Diamond MD Primary Care Provider + Encounter Details Date Type Department Care Team Description 05/24/2016 Hospital Medical Records [address] [place] [address] Chuck Dave MD Social History Tobacco Use [...] on filedocumented in this encounter Care Teams Dump Truck Driver Relationship Specialty Start Date End Date Nikki Alcantar MD [address] [place] [address] PCP - General 06/26/05 03/04/17 Michelle Norris MD [address] [place] [address] PCP - General Internal Medicine 03/05/17 03/16/21 [facility]ly [facility], Pcp [address] [place] [address] PCP - General Internal Medicine 03/17/21 05/04/21 Michelle Norris MD [address] [place] [address]703 PCP - General Internal Medicine 05/05/21 09/13/22 Rosetta Diamond MD [address] [place] [address] PCP - General Internal Medicine 09/14/22 documented as of this encounter
--- OUTSIDE RECORDS SUMMARY | 2024-11-28 02:23 | XMS_ITS | Encounter Summary ---
Author Organization [facility] Address [address] [place] [address] Care Team Providers Care Doctor Of Chiropractic Name Role Phone Nikki Alcantar MD Primary Care Provider [phone] Michelle Norris MD Primary Care Provider Unavail [facility] Primary Care Provider [facility] Michelle Norris MD Primary Care Provider Unavail [facility] Rosetta Diamond MD Primary Care Provider + Encounter Details Date Type Department Care Team Description 05/07/2009 Hospital Medical Records [address] [place] [address] Rosana Gonzalez MD Social History Tobacco Use Types Packs/Day [...] on filedocumented in this encounter Care Teams Doctor Of Chiropractic Relationship Specialty Start Date End Date Nikki Alcantar MD [address] [place] [address] PCP - General 06/26/05 03/04/17 Michelle Norris MD [address] [place] [address] PCP - General Internal Medicine 03/05/17 03/16/21 [facility], Pcp [address] [place] [address] PCP - General Internal Medicine 03/17/21 05/04/21 Michelle Norris MD [address] [place] [address] [place] [address] PCP - General Internal Medicine 05/05/21 09/13/22 Rosetta Diamond MD [address] [place], [place] [phone] PCP - General Internal Medicine 09/14/22 documented as of this encounter
--- OUTSIDE RECORDS SUMMARY | 2024-11-28 02:23 | XMS_ITS | Encounter Summary ---
Author Organization [facility] Address [address] [place] [address] Care Team Providers Care Acreage Reporter Name Role Phone Nikki Alcantar MD Primary Care Provider [phone] Michelle Norris MD Primary Care Provider Unavail [facility] Primary Care Provider [facility] Michelle Norris MD Primary Care Provider Unavail [facility] Rosetta Diamond MD Primary Care Provider + Encounter Details Date Type Department Care Team Description 12/24/2013 Hospital Medical Records [address] [place] [phone] Marlen Grande Social History Tobacco Use Types [...] on filedocumented in this encounter Care Teams Acreage Reporter Relationship Specialty Start Date End Date Nikki Alcantar MD [address] [place] [address]268 PCP - General 06/26/05 03/04/17 Michelle Norris MD [address] [place] [address] 97800 PCP - General Internal Medicine 03/05/17 03/16/21 [facility], Pcp [address] [place] [address]365 PCP - General Internal Medicine 03/17/21 05/04/21 Michelle Norris MD [address] [place] [address] PCP - General Internal Medicine 05/05/21 09/13/22 Rosetta Diamond MD [address] [place] [address] PCP - General Internal Medicine 09/14/22 documented as of this encounter
--- OUTSIDE RECORDS SUMMARY | 2024-11-28 02:23 | XMS_ITS | Encounter Summary ---
Author Organization [facility] [place] [facility] Address [address] [place] [address] Care Team Providers Care Qa Tester Name Role Phone Nikki Alcantar MD Primary Care Provider [phone] Michelle Norris MD Primary Care Provider Unavail [facility] [place] Primary Care Provider [facility] Michelle Norris MD Primary Care Provider Unavail [facility] Rosetta Diamond MD Primary Care Provider + Encounter Details Date Type Department Care Team Description 04/23/2016 Hospital Medical Records [address] [place] [address] Rod Mccoy MD Social History Tobacco Use Types Packs/Day [...] on filedocumented in this encounter Care Teams Qa Tester Relationship Specialty Start Date End Date Nikki Alcantar MD [address] [place] [address] PCP - General 06/26/05 03/04/17 Michelle Norris MD [address] [place] [address] 28872 PCP - General Internal Medicine 03/05/17 03/16/21 [facility], Pcp [address] [place] [address] 80179 PCP - General Internal Medicine 03/17/21 05/04/21 Michelle Norris MD [address] [place] [address] 06297 PCP - General Internal Medicine 05/05/21 09/13/22 Rosetta Diamond MD [address] [place] [address] PCP - General Internal Medicine 09/14/22 documented as of this encounter
--- OUTSIDE RECORDS SUMMARY | 2024-11-28 02:23 | XMS_ITS | Encounter Summary ---
Author Organization [facility] Address [address] [place] [address] Care Team Providers Care Blanket Winder Operator Name Role Phone Nikki Alcantar MD Primary Care Provider [phone] Michelle Norris MD Primary Care Provider Unavail [facility] Primary Care Provider [facility] Michelle Norris MD Primary Care Provider Unavail [facility] Rosetta Diamond MD Primary Care Provider + Encounter Details Date Type Department Care Team Description 10/01/2013 Hospital Medical Records [address] [place] [address] Richard Nevarez Social History Tobacco Use Types Packs/Day Years [...] on filedocumented in this encounter Care Teams Blanket Winder Operator Relationship Specialty Start Date End Date Nikki Alcantar MD [address] [place] [address]27 PCP - General 06/26/05 03/04/17 Michelle Norris MD [address] [place] [address] 95062 PCP - General Internal Medicine 03/05/17 03/16/21 [facility], Pcp [address] [place] [address]331 PCP - General Internal Medicine 03/17/21 05/04/21 Michelle Norris MD [address] [place] [address] 64275 PCP - General Internal Medicine 05/05/21 09/13/22 Rosetta Diamond MD [address] [place] [address] PCP - General Internal Medicine 09/14/22 documented as of this encounter
--- OUTSIDE RECORDS SUMMARY | 2024-11-28 02:23 | XMS_ITS | Encounter Summary ---
Author Organization [facility] Address [address] [place] [address] Care Team Providers Care Mechanical Artist Name Role Phone Nikki Alcantar MD Primary Care Provider [phone] Michelle Norris MD Primary Care Provider Unavail [facility] Primary Care Provider [facility] Michelle Norris MD Primary Care Provider Unavail able Rosetta Diamond MD Primary Care Provider + Reason for Visit * Reason Onset Date Comments Call From Hospital 06/07/2016 Encounter Details Date Type Department Care Team Description 06/07/2016 Telephone Adult Medicine [address] [phone] Nikki Alcantar MD [address] [place] [address] [phone] Call From Hospital Social History Tobacco Use [...] encounter Miscellaneous Notes * Telephone Encounter - Shey Bazan M.A. - 06/07/2016 9:49 AM EDT FYI forwarded to pcp. * Telephone Encounter - Donavon Harvey - 06/07/2016 8:48 AM EDT [facility] Phsyc unit calling to inform us that patient was admitted to phsyc unit yesterday documented in this encounter Plan of Treatment Not on file documented as of this encounter Visit Diagnoses Not on filedocumented in this encounter Care Teams Mechanical Artist Relationship Specialty Start Date End Date Nikki Alcantar MD [address] [place] [address] PCP - General 06/26/05 03/04/17 Michelle Norris MD [address] [place] [address] PCP - General Internal Medicine 03/05/17 03/16/21 [place] [address] PCP - General Internal Medicine 03/17/21 05/04/21 Michelle Norris MD [address] [place] [address] PCP - General Internal Medicine 05/05/21 09/13/22 Rosetta Diamond MD [address] [place], [place] [phone] PCP - General Internal Medicine 09/14/22 documented as of this encounter
--- OUTSIDE RECORDS SUMMARY | 2024-11-28 02:23 | XMS_ITS | Encounter Summary ---
Author Organization [facility] Address [address] [place] [address] Care Team Providers Care Student Services Dean Name Role Phone Nikki Alcantar MD Primary Care Provider Michelle Norris MD Primary Care Provider Unavail able [facility] Primary Care Provider [facility] Michelle Norris MD Primary Care Provider Unavail able Rosetta Diamond MD Primary Care Provider + Reason for Visit * Reason Onset Date Comments [facility] Call 08/18/2016 Encounter Details Date Type Department Care Team Description 08/18/2016 Telephone Adult Medicine [address] [phone] Nikki Alcantar MD [address] [place] [address] [phone] [facility] Call Social History Tobacco Use Types [...] encounter Miscellaneous Notes * Telephone Encounter - Darcy Nicole - 08/18/2016 3:29 PM EDT Forward to Nikki Alcantar for FYI. * Telephone Encounter - Terrie Lion - 08/18/2016 2:54 PM EDT [facility] CALL Which [facility] office is calling? [facility] Full name of caller: [facility] The caller is A nurse Is the caller at the patients home?: NO Reason for call: will be seeing the pt 2 times a day for wound care Does caller need an urgent call back? NO Was CONTACT Telephone # obtained above?: YES Fax #: documented in this encounter Plan of Treatment Not on file documented as of this encounter Visit Diagnoses Not on filedocumented in this encounter Care Teams Student Services Dean Relationship Specialty Start Date End Date Nikki Alcantar MD [address] [place] [address] PCP - General 06/26/05 03/04/17 Michelle Norris MD [address] [place], [place] [phone] PCP - General Internal Medicine 03/05/17 03/16/21 [place] [address] PCP - General Internal Medicine 03/17/21 05/04/21 Michelle Norris MD [address] [place] [address] PCP - General Internal Medicine 05/05/21 09/13/22 Rosetta Diamond MD [address] [place] [address] PCP - General Internal Medicine 09/14/22 documented as of this encounter
--- OUTSIDE RECORDS SUMMARY | 2024-11-28 02:23 | XMS_ITS | Encounter Summary ---
Author Organization [facility] Address [address] [place] [address] Care Team Providers Care Clin Application Specialist Name Role Phone Nikki Alcantar MD Primary Care Provider [phone] Michelle Norris MD Primary Care Provider Unavail [facility] Primary Care Provider [facility] Michelle Norris MD Primary Care Provider Unavail [facility] Rosetta Diamond MD Primary Care Provider + Encounter Details Date Type Department Care Team Description 12/31/2012 Hospital Medical Records [address] [place] [address] Sourav Lucas Social History Tobacco Use Types [...] on filedocumented in this encounter Care Teams Clin Application Specialist Relationship Specialty Start Date End Date Nikki Alcantar MD [address] [place] [address] PCP - General 06/26/05 03/04/17 Michelle Norris MD [address] [place] [address] PCP - General Internal Medicine 03/05/17 03/16/21 [facility], Pcp [address] [place] [address] PCP - General Internal Medicine 03/17/21 05/04/21 Michelle Norris MD [address] [place] [address] [place] [address] PCP - General Internal Medicine 05/05/21 09/13/22 Rosetta Diamond MD [address] [place], [place] [phone] PCP - General Internal Medicine 09/14/22 documented as of this encounter
--- OUTSIDE RECORDS SUMMARY | 2024-11-28 02:23 | XMS_ITS | Encounter Summary ---
Author Organization [facility] Address [address] [place] [address] Care Team Providers Care Bush And Vine Fruit Crop Farmer Name Role Phone Nikki Alcantar MD Primary Care Provider [phone] Michelle Norris MD Primary Care Provider Unavail able [facility] Michelle Norris MD Primary Care Provider Unavail able Roestta Diamond MD Primary Care Provider + Reason for Visit * Reason Onset Date Comments Error 09/11/2016 Encounter Details Date Type Department Care Team Description 09/11/2016 Telephone Adult Medicine [address] [phone] Nikki Alcantar MD [address] [place] [address] [phone] Error Social History Tobacco Use Types Packs/Day Years [...] encounter Miscellaneous Notes * Telephone Encounter - Donavon Harvey - 09/11/2016 1:28 PM EST documented in this encounter Plan of Treatment Not on file documented as of this encounter Visit Diagnoses Not on filedocumented in this encounter Care Teams Bush And Vine Fruit Crop Farmer Relationship Specialty Start Date End Date Nikki Alcantar MD [address] [place] [address] PCP - General 06/26/05 03/04/17 Michelle Norris MD [address] [place] [address] PCP - General Internal Medicine 03/05/17 03/16/21 On [facility] [place] [address] PCP - General Internal Medicine 03/17/21 05/04/21 Michelle Norris MD [address] [place] [address] PCP - General Internal Medicine 05/05/21 09/13/22 Rosetta Diamond MD [address] [place] [address] PCP - General Internal Medicine 09/14/22 documented as of this encounter
--- OUTSIDE RECORDS SUMMARY | 2024-11-28 02:23 | XMS_ITS | Encounter Summary ---
Author Organization [facility] Address [address] [place] [address] Care Team Providers Care Self Sealing Fuel Tank Builder Name Role Phone Nikki Alcantar MD Primary Care Provider [phone] Michelle Norris MD Primary Care Provider Unavail able [facility] Primary Care Provider [facility] Michelle Norris MD Primary Care Provider Unavail able Rosetta Diamond MD Primary Care Provider + Reason for Visit * Reason Onset Date Comments Faxed Refill 02/01/2017 Encounter Details Date Type Department Care Team Description 02/01/2017 Refill Adult Medicine [address] [phone] Nikki Alcantar MD [address] [place] [address] [phone] Faxed Refill Social History Tobacco Use Types Packs/Day Years [...] Telephone Encounter - Lucita Royal M.A. - 02/02/2017 9:46 AM EDT Message left for patient to return my call. * Telephone Encounter - Shama Razo PA-C - 02/02/2017 9:09 AM EDT I will not refill this medication until labs have been updated. This is the second request that hascome through for this patient, please call patient and advise labs must be done to obtain refills. * Telephone Encounter - Shira Taylor - 02/01/2017 4:35 PM EDT Patient would like script to be: E-PRESCRIBED/FAXED TO PHARMACY WHEN WAS THE PATIENT'S LAST APPOINTMENT IN ADULT MEDICINE? 01-17-2017 WHEN WAS THE LAST TIME THE PATIENT SAW THEIR PCP? 12-04-2016 Does patient have an upcoming appointment? Yes 07-16-2017 (THE MEDICATION REQUESTED IS ON THE MED LIST ABOVE) DETENTION CHIEF TECHNOLOGIST WILL BRING PATIENT IN FOR LABS All of the medications requested were on the CURRENT MEDS list Did you check the Pharmacy information above?: YES Patient wants: 30 -day supply Is this a mail order prescription request ? NO Patients current [place] carrier is: [place] / Product Type: [place]ARE [id number] documented in this encounter Plan of Treatment Not on file documented as of this encounter Visit Diagnoses Not on filedocumented in this encounter Care Teams Self Sealing Fuel Tank Builder Relationship Specialty Start Date End Date Nikki Alcantar MD [address] [place] [phone] PCP - General 06/26/05 03/04/17 Michelle Norris MD [address] [place] [phone] PCP - General Internal Medicine 03/05/17 03/16/21 [facility] P[facility] [address] [place] [id number] PCP - General Internal Medicine 03/17/21 05/04/21 Michelle Norris MD [address] [place] [id number] PCP - General Internal Medicine 05/05/21 09/13/22 Rosetta Diamond MD [address] [place] [phone] PCP - General Internal Medicine 09/14/22 documented as of this encounter
--- OUTSIDE RECORDS SUMMARY | 2024-11-28 02:23 | XMS_ITS | Encounter Summary ---
Author Organization [facility] Address [address] [place] [address] Care Team Providers Care Fruit Trimmer Name Role Phone Nikki Alcantar MD Primary Care Provider [phone] Michelle Norris MD Primary Care Provider Unavail [facility] Primary Care Provider [facility] Michelle Norris MD Primary Care Provider Unavail [facility] Rosetta Diamond MD Primary Care Provider + Encounter Details Date Type Department Care Team Description 11/11/2016 Hospital Medical Records [address] [place] [id number] Eileen Landrumelizabeth Social History Tobacco Use Types Packs/Day Years [...] on filedocumented in this encounter Care Teams Fruit Trimmer Relationship Specialty Start Date End Date Nikki Alcantar MD [address] [place] [id number] PCP - General 06/26/05 03/04/17 Michelle Norris MD [address] [place] [address] PCP - General Internal Medicine 03/05/17 03/16/21 [facility], Pcp [address] [place] [address] PCP - General Internal Medicine 03/17/21 05/04/21 Michelle Norris MD [address] [place] [address] [place] [id number] PCP - General Internal Medicine 05/05/21 09/13/22 Rosetta Diamond MD [address], [place] [phone] PCP - General Internal Medicine 09/14/22 documented as of this encounter
[2024-11-28 02:33] LABS: INTERNATIONAL NORM RATIO 0.9 (0.9-1.1); Prothrombin Time 10.1 SEC (10.9-12.4)
[2024-11-28 02:36] LABS: D Dimer High Sensitivity < 150 NG/ML
[2024-11-28 02:57] LABS: Amphetamine Screen Urine Not Detected (Not Detect); Barbiturates, Urine Not Detected (Not Detect); Benzodiazepines Screen Urine Not Detected (Not Detect); Buprenorphine Scr Not Detected (Not Detect); Cannabinoid Screen Urine Not Detected (Not Detect); Cocaine Screen Urine Not Detected (Not Detect); Fentanyl, urine Not Detected (Not Detect); Methadone Screen, Urine Not Detected (Not Detect); Opiate Screen Urine Not Detected (Not Detect); Oxycodone Screen Urine Not Detected (Not Detect); Phencyclidine Screen Urine Not Detected (Not Detect)
[2024-11-28 03:21] LABS: COVID-19 Test Negative (Negative); IDNOW Serial# 55D5AD1C
[2024-11-28 03:22] LABS: IDNOW Serial# 58CA691E; Influenza A Negative (Negative); Influenza B2 Negative (Negative)
--- NOTE | 2024-11-28 03:22 | PC.NURSE ---
provider, DR. Padron held Fluids pt encourage po fluids
[2024-11-28 06:28] VITALS: BP 137/89; PULSE 100; RESP 16; TEMP 36.5; O2SAT 95
[2024-11-28 08:33] VITALS: BP 137/89; PULSE 100; RESP 16; TEMP 36.5; O2SAT 95
== END 2024-11-28 08:34 | disposition home or self-care (01) ==
PROVIDERS: Emergency Medicine; Emergency Provider Emergency Medicine
DX: R07.89 Other chest pain (principal); R10.2 Pelvic and perineal pain; R42 Dizziness and giddiness; R06.02 Shortness of breath; Z79.899 Other long term (current) drug therapy; Z51.81 Encounter for therapeutic drug level monitoring; Z11.52 Encounter for screening for COVID-19
CPT/HCPCS: 36415; 71045; 80053; 80307; 82947; 83880; 84484; 84702; 85025; 85379; 85610; 87502; 87635; 93005; 99285

== ENCOUNTER → 2024-11-27 23:16 | Outpatient (BNV) | payer MEDICARE, MEDICAID, SELFPAY | PROVIDERS: Emergency Provider Emergency Medicine; Visit Provider Internal Medicine Cardiovascular Disease | DX: R00.0 Tachycardia, unspecified (principal) | CPT/HCPCS: 93010 ==

== ENCOUNTER → 2024-11-28 01:13 | Outpatient (BNV) | payer MEDICARE, MEDICAID, SELFPAY | PROVIDERS: Emergency Provider Emergency Medicine; Visit Provider Radiology Diagnostic Radiology | DX: R07.9 Chest pain, unspecified (principal) | CPT/HCPCS: 71045 ==

== ENCOUNTER 2024-12-03 02:52 | Emergency (ER) | payer MEDICARE, MEDICAID, SELFPAY ==
--- NOTE | ~2024-12-03 | XR_ITS ---
CLINICAL HISTORY: difficulty breathing 1 view chest x-ray Comparison: CR - XR CHEST 1V - 11/28/24 01:27 EST Findings: Normal size heart. No consolidation, significant pleural effusion or pneumothorax. Mild blunting of right costophrenic angle likely due to summation of soft tissues. No acute fracture. IMPRESSION: 1. No acute findings. This document has been electronically signed by: Ofelia Zaldivar MD on 12/03/2024 04:21:25
[2024-12-03 03:06] VITALS: BP 130/90; PULSE 130; O2SAT 96
[2024-12-03 03:07] VITALS: BP 142/95; PULSE 117; RESP 18; TEMP 36.7; O2SAT 94; BMI 43.5
--- OUTSIDE RECORDS SUMMARY | 2024-12-03 03:36 | XMS_ITS | Clinical Summary ---
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 purposes only. Unconfirmed screening result should not be used for non-medical purposes. *ALTERNATE METHOD CONFIRMATION DONE UPON REQUEST ONLY* us Han Leggett MD LAB URINE ORDERABLES Final R deltamethod Performing Organization Address [facility] Co de Phone Number [facility] [address] [place] [address], [place] [phone] * Methadone, urine (11/30/2024 5:20 PM EST) Only the most recent of8 resultswithin the time period is included. Methadone Screen, Urine Negative Negative LAB CHEMISTRY METHOD 11/30/2024 6:01 PM EST [facility] Comment: Assay cutoff 300 ng/mL Semi-quantitative assay for screening purposes only. Unconfirmed screening result should not be used for non-medical purposes. *ALTERNATE METHOD CONFIRMATION DONE UPON REQUEST ONLY* Urine Urine specimen obtained by clean catch procedure / Unknown Non-blood Collection / Unknown 11/30/2024 5:20 PM EST 11/30/2024 5:25 PM EST us Han Leggett MD LAB URINE ORDERABLES Final R esult Performing Organization Address [facility] Co de Phone Number [facility] [address] [place] [address], [place] [phone] * Phencyclidine, urine (11/30/2024 5:20 PM EST) Only the most recent of8 resultswithin the time period is included. PCP Scrn, Ur Negative Negative LAB CHEMISTRY METHOD 11/30/2024 6:01 PM EST [facility] Comment: Assay cutoff 25 ng/mL Semi-quantitative assay for screening purposes only. Unconfirmed screening result should not be used for non-medical purposes. *ALTERNATE METHOD CONFIRMATION DONE UPON REQUEST ONLY* Urine Urine specimen obtained by clean catch procedure / Unknown Non-blood Collection / Unknown 11/30/2024 5:20 PM EST 11/30/2024 5:25 PM EST us Han Leggett MD LAB URINE ORDERABLES Final R esult Performing Organization Address [facility] Co de Phone Number [facility] [address] [place] [address], [place] [phone] * Urinalysis with reflex microscopic and culture (11/26/2024 5:10 AM EST) [place] Urine 1.017 1.003 - 1.030 LAB URINALYSIS - AUTOMATED METHOD 11/26/2024 5:25 AM [facility] pH, Urine 5.5 5.0 - 8.0 pH LAB URINALYSIS - AUTOMATED METHOD 11/26/2024 5:25 AM [facility] Leukocytes, Urine Negative Negative LAB URINALYSIS - AUTOMATED METHOD 11/26/2024 5:25 AM [facility] Nitrite, Urine Negative Negative LAB URINALYSIS - AUTOMATED METHOD 11/26/2024 5:25 AM [facility] Protein, Urine Negative <=Trace mg/dL LAB URINALYSIS - AUTOMATED METHOD 11/26/2024 5:25 AM [facility] Glucose, Urine Negative Negative mg/dL LAB URINALYSIS - AUTOMATED METHOD 11/26/2024 5:25 AM [facility] Ketones, Urine Negative Negative mg/dL LAB URINALYSIS - AUTOMATED METHOD 11/26/2024 5:25 AM [facility] Urobilinogen, Urine 0.2 0.2 - 1.0 mg/dL LAB URINALYSIS - AUTOMATED METHOD 11/26/2024 5:25 AM [facility] Bilirubin, Urine Negative Negative LAB URINALYSIS - AUTOMATED METHOD 11/26/2024 5:25 AM [facility] Blood, Urine Negative Negative LAB URINALYSIS - AUTOMATED METHOD 11/26/2024 5:25 AM [facility] Urine Urine specimen obtained by clean catch procedure / Unknown Non-blood Collection / Unknown 11/26/2024 5:10 AM EST 11/26/2024 5:17 AM EST us Alberto Massey MD LAB URINE ORDERABLES Final Resu lt Performing Organization Address [facility]/ZIP Co de Phone Number [facility] [address] [place] [address], * [place] urine culture tube (11/26/2024 5:10 AM EST) [facility] Extra Tube Hold for add-ons. 11/26/2024 7:01 AM EST [facility] Comment:Auto resulted. Urine Urine specimen obtained by clean catch procedure / Unknown Non-blood Collection / Unknown 11/26/2024 5:10 AM EST 11/26/2024 5:17 AM EST Alberto Massey MD LAB URINE ORDERABLES Final Resu lt Performing Organization Address [facility] Co de Phone Number [facility] [address] [place] [address], * (ABNORMAL) POCT Glucose, blood (11/25/2024 9:40 PM EST) [facility] Glucose POCT 232(H) 70 - 100 mg/dL 11/25/2024 9:41 PM EST [facility] Blood Capillary blood specimen / Unknown 11/25/2024 9:40 PM EST 11/25/2024 9:42 PM EST Jimmy Alfonso MD LAB POINT OF CARE TE ST DOCKED DEVICE UNSOLICITED RESULTS Final Result Performing Organization Address [facility]/ZIP Co de Phone Number [facility] [address] [place] [address], [place] [phone] * Respiratory virus panel molecular study (11/25/2024 8:24 PM EST) Only the most recent of2 resultswithin the time period is included. [facility] Adenovirus Detection by PCR Not Detected Not Detected LAB MICROBIOLOGY METHOD 11/25/2024 9:55 PM EST [facility] Influenza A PCR Not Detected Not Detected LAB MICROBIOLOGY METHOD 11/25/2024 9:55 PM EST [facility] Influenza B PCR Not Detected Not Detected LAB MICROBIOLOGY METHOD 11/25/2024 9:55 PM EST [facility] Coronavirus 229E Not Detected Not Detected LAB MICROBIOLOGY METHOD 11/25/2024 9:55 PM [facility] Coronavirus HKU1 Not Detected Not Detected LAB MICROBIOLOGY METHOD 11/25/2024 9:55 PM EST [facility] Coronavirus OC43 Not Detected Not Detected LAB MICROBIOLOGY METHOD 11/25/2024 9:55 PM [facility] Coronavirus NL63 Not Detected Not Detected LAB MICROBIOLOGY METHOD 11/25/2024 9:55 PM [facility] Parainfluenza Virus 1 Not Detected Not Detected LAB MICROBIOLOGY METHOD 11/25/2024 9:55 PM [facility] Parainfluenza Virus 2 Not Detected Not Detected LAB MICROBIOLOGY METHOD 11/25/2024 9:55 PM [facility] Parainfluenza Virus 3 Not Detected Not Detected LAB MICROBIOLOGY METHOD 11/25/2024 9:55 PM [facility] Parainfluenza Virus 4 Not Detected Not Detected LAB MICROBIOLOGY METHOD 11/25/2024 9:55 PM [facility] RSV PCR Not Detected Not Detected LAB MICROBIOLOGY METHOD 11/25/2024 9:55 PM [facility] Human Metapneumovirus A and B Not Detected Not Detected LAB MICROBIOLOGY METHOD 11/25/2024 9:55 PM [facility] Rhinovirus/Entero virus Not Detected Not Detected LAB MICROBIOLOGY METHOD 11/25/2024 9:55 PM [facility] Bordetella pertussis Not Detected Not Detected LAB MICROBIOLOGY METHOD 11/25/2024 9:55 PM [facility] Bordetella parapertussis Not Detected Not Detected LAB MICROBIOLOGY METHOD 11/25/2024 9:55 PM EST [facility] Mycoplasma pneumo by PCR Not Detected Not Detected LAB MICROBIOLOGY METHOD 11/25/2024 9:55 PM EST [facility] Chlamydia pneumoniae Not Detected Not Detected LAB MICROBIOLOGY METHOD 11/25/2024 9:55 PM [facility] SARS COV-2 Not Detected Not Detected LAB MICROBIOLOGY METHOD 11/25/2024 9:55 PM [facility] Sputum Both anterior nares / Unknown Non-blood Collection / Unknown 11/25/2024 8:24 PM EST 11/25/2024 8:52 PM EST [facility] - 11/25/2024 9:55 PM EST Testing was performed using the [employer] Respiratory Pathogen PCR Assay. All results must [...] Alfonso MD LAB MICROBIOLOGY - GENERAL [facility] Final Result [facility] [address] [place] [address], [place] [phone] * (ABNORMAL) CBC auto differential (11/25/2024 8:24 PM EST) Only the most recent of8 resultswithin the time period is included. WBC 8.4 4.8 - 10.8 K/mcL LAB HEMETOLOGY METHOD 11/25/2024 9:01 PM [facility] RBC 4.30 3.80 - 4.80 M/mcL LAB HEMETOLOGY METHOD 11/25/2024 9:01 PM [facility] Hemoglobin 12.9 11.5 - 16.0 g/dL LAB HEMETOLOGY METHOD 11/25/2024 9:01 PM [facility] Hematocrit 40.1 35.0 - 47.0 % LAB HEMETOLOGY METHOD 11/25/2024 9:01 PM [facility] MCV 94.1 79.0 - 98.0 FL LAB HEMETOLOGY METHOD 11/25/2024 9:01 PM [facility] MCH 30.3 27.0 - 32.0 pcg LAB HEMETOLOGY METHOD 11/25/2024 9:01 PM [facility] MCHC 32.2 32.0 - 37.0 g/dL LAB HEMETOLOGY METHOD 11/25/2024 9:01 PM [facility] RDW 12.8 11.0 - 15.0 % LAB HEMETOLOGY METHOD 11/25/2024 9:01 PM [facility] Platelets 316 130 - 400 K/mcL LAB HEMETOLOGY METHOD 11/25/2024 9:01 PM [facility] MPV 9.3 7.0 - 11.0 FL LAB HEMETOLOGY METHOD 11/25/2024 9:01 PM [facility] NRBC 0.0 <1.0 % LAB HEMETOLOGY METHOD 11/25/2024 9:01 PM [facility] NRBC Absolute 0.00 <0.10 K/mcL LAB HEMETOLOGY METHOD 11/25/2024 9:01 PM [facility] Neutrophils Relative 66.9 % LAB HEMETOLOGY METHOD 11/25/2024 9:01 PM [facility] Lymphocytes Relative 19.3 % LAB HEMETOLOGY METHOD 11/25/2024 9:01 PM [facility] Monocytes Relative 9.5 % LAB HEMETOLOGY METHOD 11/25/2024 9:01 PM [facility] Eosinophils Relative 2.6 % LAB HEMETOLOGY METHOD 11/25/2024 9:01 PM [facility] Basophils Relative 0.4 % LAB HEMETOLOGY METHOD 11/25/2024 9:01 PM EST [facility] Immature Granulocytes Relative 1.3 % LAB HEMETOLOGY METHOD 11/25/2024 9:01 PM [facility] Neutrophils Absolute 5.59 1.50 - 7.00 K/mcL LAB HEMETOLOGY METHOD 11/25/2024 9:01 PM [facility] Lymphocytes Absolute 1.61 1.00 - 5.00 K/mcL LAB HEMETOLOGY METHOD 11/25/2024 9:01 PM [facility] Monocytes Absolute 0.79 0.20 - 1.00 K/mcL LAB HEMETOLOGY METHOD 11/25/2024 9:01 PM [facility] Eosinophils Absolute 0.22 0.00 - 0.50 K/mcL LAB HEMETOLOGY METHOD 11/25/2024 9:01 PM [facility] Basophils Absolute 0.03 0.00 - 0.20 K/mcL LAB HEMETOLOGY METHOD 11/25/2024 9:01 PM [facility] Immature Granulocytes Absolute 0.11(H) 0.00 - 0.03 K/mcL LAB HEMETOLOGY METHOD 11/25/2024 9:01 PM [facility] Blood Venous blood specimen / Unknown Venipuncture / Unknown 11/25/2024 8:24 PM EST 11/25/2024 8:52 PM EST us Jimmy Alfonso MD LAB BLOOD ORDERABLES Final Resu lt [facility] [address] [place] [address], * [place] top urine tube (11/02/2024 9:06 PM EST) Only the most recent of2 resultswithin the time period is included. Extra Tube Hold for add-ons. 11/03/2024 12:01 AM [facility] Comment:Auto resulted. Urine Urine specimen obtained by clean catch procedure / Unknown 11/02/2024 9:06 PM EST 11/02/2024 10:06 PM EST us Jimmy Alfonso MD LAB URINE ORDERABLES Final Resu lt [facility] [address] [place] [address], [place] [phone] * (ABNORMAL) Comprehensive Metabolic Panel (CMP) (11/01/2024 [...] [facility] BLOOD ORDERABLES Final Resul t [facility] [address] [place] [address], * XR Thoracic Spine 2 Views (10/20/2024 2:33 AM EST) Anatomical Region Laterality Modality Spine, T-spine Radiographic Renata ging 10/20/2024 8:50 AM EST Impressions 10/20/2024 8:52 AM EST The thoracic spine is moderately kyphotic as also seen on 09/07/2024. Otherwise, normal examination, without acute findings. Code 20542 -------- FINAL REPORT -------- Dictated By: Jefe Agrawal Dictated Date: 10/20/2024 08:50 ET Assigned Physician: Jefe Agrawal Reviewed and Electronically Signed By: Jefe Agrawal Signed Date: 10/20/2024 08:52 ET Workstation ID: [id number] Transcribed By: Self Edit Transcribed Date: 10/20/2024 [...] as also seen on the chest radiograph tolktbgyx06/24/2024. The alignment of the bony structures is otherwise anatomic. Nofracture or osteolytic or osteoblastic lesion is seen. The disc spaces arewell-maintained. IMPRESSION: The thoracic spine is moderately kyphotic as also seen on 09/07/2024.Otherwise, normal examination, without acute findings. Code 31569 -------- FINAL REPORT -------- Dictated By: Jefe Agrawal Dictated Date: 10/20/2024 08:50 ET Assigned Physician: Jefe Agrawal Reviewed and Electronically Signed By: Jefe Agrawal Signed Date: 10/20/2024 08:52 ET Workstation ID: [id number] Transcribed By: Self Edit Transcribed Date: 10/20/2024 08:50 ET us Alberto Massey MD IMG XR PROCEDURES Final Result * XR Lumbar Spine 2-3 Views (10/20/2024 2:32 AM EST) Anatomical Region Laterality Modality Spine, L-spine Radiographic Renata ging 10/20/2024 8:16 AM EST Impressions 10/20/2024 8:18 AM EST Impression: No evidence of lumbar spine fracture or subluxation. [place] ([id number]) -------- FINAL REPORT -------- Dictated By: Eloina Mayo Dictated Date: 10/20/2024 08:16 ET Assigned Physician: Eloina Mayo Reviewed and Electronically Signed By: Eloina Mayo Signed Date: 10/20/2024 08:18 ET Workstation ID: [id number] Transcribed By: Self Edit Transcribed Date: 10/20/2024 [...] lumbar spine fracture or subluxation. [place] ([id number]) -------- FINAL REPORT -------- Dictated By: Eloina Mayo Dictated Date: 10/20/2024 08:16 ET Assigned Physician: Eloina Maoy Reviewed and Electronically Signed By: Eloina Mayo Signed Date: 10/20/2024 08:18 ET Workstation ID: [id number] Transcribed By: Self Edit Transcribed Date: 10/20/2024 08:16 ET us Alberto CASSIDYG XR PROCEDURES Final Result * CT Head [...] Delmy Greenwood MD on 10/20/2024 02:54:[address] PROCEDURES Final Result * POC , urine manually resulted (10/18/2024 10:34 PM EST) Only the most recent of2 resultswithin the time period is included. HCG, Ur POC Negative Negative POC hCG Int QC Pass? Yes Yes Urine Urine specimen obtained by clean catch procedure / Unknown 10/18/2024 10:34 PM EST us Pedro Arellano DO POINT OF CARE TEST ENTER/EDIT O RDERABLES Final Result * Pap smear (04/22/2024) 04/22/2024 Narrative HISTORICAL TESTING LAB RESULTING AGENCY - 04/28/2024 11:46 AM EDT [id number] THINPREP PAP, IMAGED: NEGATIVE FOR SQUAMOUS INTRAEPITHELIAL LESION AND MALIGNANCY MARIA ANTONIA SALINAS , GREG(ASCP) (CASE ELECTRONICALLY SIGNED 04 28 2024) RESULT OF APTIMA HIGH RISK HPV ASSAY: HIGH RISK HPV: ??NEGATIVE (SEROTYPES 16,18,31,33,35,39,45,51,52,56,58,59,66,68) COMPLETED ON 2024-04-24 ADEQUACY: SATISFACTORY ENDOCERVICAL/TRANSFORMATION ZONE COMPONENT PRESENT. SOURCE: THINPREP PAP HPV ANY DX: ??REFLEX 16 AND 18, CERVICAL, IMAGED CLINICAL INFORMATION: HPV ANY DIAGNOSIS. 

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
--- OUTSIDE RECORDS SUMMARY | 2024-12-03 03:38 | XMS_ITS | Encounter Summary ---
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 Venous blood specimen / Unknown Venipuncture / Unknown 11/30/2024 5:22 PM EST 11/30/2024 6:29 PM EST us Han Leggett MD LAB BLOOD ORDERABLES Final R [facility] Performing Organization Address [facility] Co de Phone Number [facility] [address] [place] [address], [place] [phone] * Lipase (11/30/2024 5:22 PM EST) [facility] Lipase 33 13 - 75 unit/L LAB CHEMISTRY METHOD 11/30/2024 6:53 PM EST [facility] Blood Venous blood specimen / Unknown Venipuncture / Unknown 11/30/2024 5:22 PM EST 11/30/2024 6:29 PM EST us Han Leggett MD LAB BLOOD ORDERABLES Final R esult Performing Organization Address City/[facility]/ZIP Co de Phone Number [facility] [address] [place] [address], [place] [phone] * Troponin I high sensitivity (11/30/2024 5:22 PM EST) [facility] High Sensitivity Troponin I 5 <=54 ng/L LAB CHEMISTRY METHOD 11/30/2024 6:56 PM EST [facility] Blood Venous blood specimen / Unknown Venipuncture / Unknown 11/30/2024 5:22 PM EST 11/30/2024 6:29 PM EST Narrative [facility] - 11/30/2024 6:56 PM EST High levels of biotin in samples may falsely decrease hsTroponin values. ??Use caution when interpreting hsTroponin results in patients taking biotin who exhibit renal impairment (eGFR <60) or in patients taking more than 20 mg/day of biotin. us Han Leggett MD LAB BLOOD ORDERABLES Final R esult Performing Organization Address [facility] Co de Phone Number [facility] [address] [place] [address], [place] [phone] * Methadone, urine (11/30/2024 5:20 PM EST) Methadone Screen, Urine Negative Negative LAB CHEMISTRY METHOD 11/30/2024 6:01 PM EST [facility] Comment: Assay cutoff 300 ng/mL Semi-quantitative assay for screening purposes only. Unconfirmed screening result should not be used for non-medical purposes. *ALTERNATE METHOD CONFIRMATION DONE UPON REQUEST ONLY* Urine Urine specimen obtained by clean catch procedure / Unknown Non-blood Collection / Unknown 11/30/2024 5:20 PM EST 11/30/2024 5:25 PM EST us Han Leggett MD LAB URINE ORDERABLES Final R [facility] Performing Organization Address [facility] Co de Phone Number [facility] [address] [place] [address], [place] [phone] * Phencyclidine, urine (11/30/2024 5:20 PM EST) PCP Scrn, Ur Negative Negative LAB CHEMISTRY METHOD 11/30/2024 6:01 PM EST [facility] Comment: Assay cutoff 25 ng/mL [...] ORDERABLES Final R esult Performing Organization Address [facility]/ZIP Co de Phone Number [facility] [address] [place] [address], [place] [phone] * Buprenorphine screen, urine (11/30/2024 5:20 PM EST) Buprenorphine Screen Urine Negative Negative LAB CHEMISTRY METHOD 11/30/2024 6:01 PM EST [facility] Urine Urine specimen obtained by clean catch procedure / Unknown Non-blood Collection / Unknown 11/30/2024 5:20 PM EST 11/30/2024 5:25 PM EST Narrative [facility] - 11/30/2024 6:01 PM EST Assay cutoff 5 ng/mL Semi-quantitative assay for screening purposes only. Unconfirmed screening result should not be used for non-medical purposes. *ALTERNATE METHOD CONFIRMATION DONE UPON REQUEST ONLY* us Han Leggett MD LAB URINE ORDERABLES Final R esult Performing Organization Address City/[facility]/ZIP Co de Phone Number [facility] [address] [place] [address], [place] [phone] * Drug abuse screen 8a panel, urine (11/30/2024 5:20 PM EST) [facility] Amphetamine Screen, Ur Negative Negative LAB CHEMISTRY METHOD 11/30/2024 6:01 PM EST [facility] Comment:Certain OTC medicati ons containing ephedrine, phenylephrine, pseudoephedrine and phenylpropanolamine can cause false positive results. Barbiturate Screen, Ur Negative Negative LAB CHEMISTRY METHOD 11/30/2024 6:01 PM EST [facility] Benzodiazepine Screen, Ur Negative Negative LAB CHEMISTRY METHOD 11/30/2024 6:01 PM EST [facility] Cocaine Screen, Ur Negative Negative LAB CHEMISTRY METHOD 11/30/2024 6:01 PM EST [facility] Opiate Screen, Ur Negative Negative LAB CHEMISTRY METHOD 11/30/2024 6:01 PM EST [facility] Cannabinoid (THC) Screen, Ur Negative Negative LAB CHEMISTRY METHOD 11/30/2024 6:01 PM EST [facility] Comment:Specimens from patie nts taking pantoprazole sodium (Protonix) have been shown to produce false positive results. Oxycodone Screen, Ur Negative Negative LAB CHEMISTRY METHOD 11/30/2024 6:01 PM EST [facility] Fentanyl, Ur Negative Negative LAB CHEMISTRY METHOD 11/30/2024 6:01 PM [facility] Urine Urine specimen obtained by clean catch procedure / Unknown Non-blood Collection / Unknown 11/30/2024 5:20 PM EST 11/30/2024 5:25 PM EST [facility] - 11/30/2024 6:01 PM EST Assay [...] MD LAB URINE ORDERABLES Final R esult [facility] [address] [place] [address], documented in this encounter Visit Diagnoses Diagnosis Chest pain, unspecified type- Primary Suicidal ideation Hypomagnesemia Disorders of magnesium metabolism Posttraumatic stress disorder Borderline personality disorder (CMS/HCC) Borderline personality disorder documented in this encounter Administered Medications Inactive Administered Medications - up to 3 most recent administrations Medication Order MAR Action Action Date Dose Rate Site iopamidoL (ISOVUE-370) 370 mg iodine /mL (76 %) injection 100 mL 100 mL, intravenous, Once in imaging, Starting on 11/30/24 at 2117, For 1 dose Given 11/30/2024 9:20 PM EST 90 mL lactated Ringer's bolus 1,000 mL 1,000 mL, intravenous, at 1,000 mL/hr, Administer over 1 Hours, Once, On 11/30/24 at 1759, For 1 dose New Bag 11/30/2024 6:04 PM EST 1,000 mL 100 0 mL/hr magnesium oxide (MAG-OX) tablet 400 mg 400 mg, oral, Daily, First dose on 11/30/24 at 194 Given 11/30/2024 7:46 PM EST 400 mg sodium chloride 0.9 % flush 10 mL 10 mL, intravenous, Once, On 11/30/24 at 2118, For 1 dose Given 11/30/2024 9:20 PM EST 10 mL documented in this encounter Active and Recently Administered Medications Times are shown in EST. Scheduled Medication Order 11/28/2024 11/29/2024 11/30/2024 iopamidoL (ISOVUE-370) 370 mg iodine /mL (76 %) injection 100 mL (COMPLETED) 100 mL, intravenous, Once in imaging, Starting on 11/30/24 at 7, For 1 dose 2119 (Given - Provid er: Lenore Omalley) lactated Ringer's bolus 1,000 mL (COMPLETED) 1,000 mL, intravenous, at 1,000 mL/hr, Administer over 1 Hours, Once, On 11/30/24 at 1759, For 1 dose 1803 (New Bag - Prov ider: Didi Aguirre RN)1900 (Stopped - Provider: Didi Aguirre RN) magnesium oxide (MAG-OX) tablet 400 mg 400 mg, oral, Daily, First dose on 11/30/24 at 1942 1946 (Given - Provid er: Didi Aguirre RN) sodium chloride 0.9 % flush 10 mL (COMPLETED) 10 mL, intravenous, Once, On 11/30/24 at 2118, For 1 dose 2119 (Given - Provid er: Lenore Omalley) documented in this encounter Orders Consult Count Last Ordered Date First Orde red Date IP CONSULT TO MANAGER SURGERY 1 11/30/2024 documented in this encounter Additional Health Concerns Infection Onset Date Last Indicated Resolved Time Respiratory Rule-Out 11/30/2024 11/30/2024 025 12:21 AM EST COVID-19 Rule-Out 11/30/2024 11/30/2024 12/01/2024 12:21 AM EST documented as of this encounter Care Teams Rn Clinical Relationship Specialty Start Date End Date Jason Marquez [address] [place] [id number] PCP - General 09/08/24 documented as of this encounter
--- OUTSIDE RECORDS SUMMARY | 2024-12-03 03:38 | XMS_ITS | Encounter Summary ---
Author Organization [facility] Address [address] [place] [address] Care Team Providers Care Allopathic Doctor Name Role Phone Jason Marquez Primary Care Provider [phone] Reason for Visit * Reason Comments Shortness of Breath Started this morning . Encounter Details Date Type Department Care Team (Late st Contact Info) Description 11/25/2024 9:13 PM EST - 11/26/2024 5:21 AM EST Emergency [facility] Emergency [address] [place] [id number] Jimmy Alfonso MD [address] [place] [address] Alberto Massey MD [address] [place] [address] Shortness of breath (Primary Dx) Discharge Disposition: [...] soon! Thank you for coming to the [facility] Emergency Department today. Our entire team works [...] Care Everywhere. * SOB (Shortness of Breath) (Greenlandic) documented in this encounter Medications at Time [...] - 11/25/2024 7:55 PM EST BIB[place], from [place] [facility], per EMS, patient stating that she has been having SOB started this morning, also nausea, 1 episode of vomiting. Patient took her inhaler and Advair [employer]. No other complains. * TIMI Figueroa - 11/25/2024 7:53 PM EST Emergency Medicine Note Patient Name: Lucita Underwood Initial Evaluation: 11/25/2024 : 1975 Patient's PCP: JASON MARQUEZ Emergency Physician: TIMI Figueroa History of Present Illness Chief Complaint: Chief Complaint Patient presents with Shortness of Breath Started this morning. HPI: 48-year-old female with history of borderline personality disorder, presents from her [place] [facility] with reports of shortness of breath, cough, nausea and 1 episode of vomiting. -She denies fever, current chest pain, leg pain, leg swelling, diarrhea, rash, headache ROS: I have performed a ROS with [...] DX:First degree AV block; COMMENT: Follows with [facility] 09/2017. Holter pending GERD (gastroesophageal reflux disease) 01/20/2016 DX:GERD (gastroesophageal reflux disease) History of pseudoseizure 06/10/2012 DX:History of pseudoseizure Hypercholesteremia 07/17/2007 DX:Hypercholesteremia Hypertension 06/25/2017 DX:Hypertension Marijuana use 06/26/2017 DX:Marijuana use Migraine 06/25/2017 DX:Migraine; COMMENT: Follows with neurologist Obesity (BMI 30-39.9) 06/24/2019 DX:Obesity (BMI 30-39.9) Pericardial effusion 10/09/2017 DX:Pericardial effusion; COMMENT: TTE while hospitalized 09/2017 [facility]. Repeat TTE ordered. Not hemodynamically significant PTSD (post-traumatic stress disorder) 01/20/2016 DX:PTSD (post-traumatic stress disorder) Suicide attempt by acetaminophen overdose ([facility]/H[facility]) 10/26/2020 DX:Suicide attempt by acetaminophen overdose ([facility]); COMMENT: 09/19/2020 Tobacco use disorder 02/17/2010 DX:Tobacco [...] by mouth 2 (two) times a day. rfkounqbqmn-tovuzvworsxg-kbpvqecfsn (TRELEGY ELLIPTA) 200-62.5-25 mcg inhaler Inhale 1 puff (200 mcg total) by mouth 1 (one) time each day. haloperidoL (HALDOL) 5 mg tablet Take 1 tablet (5 mg total) by mouth 3 (three) times a day. Heartburn Relief, famotidine, 10 mg tablet Take 2 tablets (20 mg total) by mouth 3 (three) times a day with meals. lactulose (CHRONULAC) solution Take 30 mL (20 [...] a day if needed for mild pain. [] nystatin (MYCOSTATIN) cream Apply to affected area 2 times daily 15 g 0 pantoprazole (PROTONIX) 20 mg EC tablet Take [...] a day. Physical Exam ED Triage Vitals [11/25/241957] Temp Heart Rate Resp BP 36.1 ??C (97 ??F) (!) 127 20 (!) 166/115 SpO2 Temp Source Heart Rate Source Patient Position 98 % Oral -- Sitting BP Location FiO2 (%) Left arm;Upper -- General: awake, calm, cooperative, No apparent distress Skin: warm, dry, No diaphoresis Eyes: PERRLA, EOMI ENT: mucosa moist, throat is clear Neck: soft/supple, full range of motion, no nuchal rigidity Respiratory: clear to auscultation Cardiovascular: regular rate and rhythm, no peripheral edema Gastrointestinal: soft nontender Musculoskeletal: no calf tenderness, no pedal edema, appropriate range of motion in upper and lowerextremities Neurological: alert and oriented X3, no focal deficit, DTR intact, cranial nerves III through XII intact, strength 5/5 bilateral hands, 5/5 strength upper and lower extremities Lymphatic Exam: No lymphadenopathy Psychiatric: stable mood and affect Results Labs Reviewed BASIC METABOLIC PANEL - Abnormal Result Value Sodium 136 Potassium 3.9 Chloride 104 CO2 24 Anion Gap 8 Glucose 260 (*) BUN 16 Creatinine 0.78 eGFR 95 BUN/Creatinine Ratio 20.5 Calcium 9.2 CBC WITH AUTO DIFFERENTIAL - Abnormal WBC 8.4 RBC 4.30 Hemoglobin 12.9 Hematocrit 40.1 MCV 94.1 MCH 30.3 MCHC 32.2 RDW 12.8 Platelets 316 MPV 9.3 NRBC 0.0 NRBC Absolute 0.00 Neutrophils Relative 66.9 Lymphocytes Relative 19.3 Monocytes Relative 9.5 Eosinophils Relative 2.6 Basophils Relative 0.4 Immature Granulocytes Relative 1.3 Neutrophils Absolute 5.59 Lymphocytes Absolute 1.61 Monocytes Absolute 0.79 Eosinophils Absolute 0.22 Basophils Absolute 0.03 Immature Granulocytes Absolute 0.11 (*) POCT GLUCOSE, BLOOD - Abnormal Glucose POCT 232 (*) RESPIRATORY VIRUS PANEL MOLECULAR STUDY - Normal Adenovirus Detection by PCR Not Detected Influenza A PCR Not Detected Influenza B PCR Not Detected Coronavirus 229E Not Detected Coronavirus HKU1 Not Detected Coronavirus OC43 Not Detected Coronavirus NL63 Not Detected Parainfluenza Virus 1 Not Detected Parainfluenza Virus 2 Not Detected Parainfluenza Virus 3 Not Detected Parainfluenza Virus 4 Not Detected RSV PCR Not Detected Human Metapneumovirus A and B Not Detected Rhinovirus/Enterovirus Not Detected Bordetella pertussis Not Detected Bordetella parapertussis Not Detected Mycoplasma pneumo by PCR Not Detected Chlamydia pneumoniae Not Detected SARS COV-2 Not Detected Narrative: Testing was performed using the [employer] Respiratory Pathogen PCR Assay. All results must [...] that are below the limit of detection. D-DIMER - Normal D-Dimer, Quant (D-DU) <150 Narrative: D-Dimer <230 ng/mL (D-Dimer units) is the threshold for exclusion of DVT/PE. D-Dimer may be elevated in: Critically ill, severely infected, trauma patients, DIC, acute CVA, acute GA, unstable angina, AF, old age, , and smoking. D-Dimer may be decreased with: Initiation of heparin therapy and oral anticoagulants. TROPONIN I HIGH SENSITIVITY - Normal High Sensitivity Troponin I 3 Narrative: High levels of biotin in samples may falsely decrease hsTroponin values. Use caution when interpreting hsTroponin results in patients taking biotin who exhibit renal impairment (eGFR <60) or in patients taking more than 20 mg/day of biotin. B-TYPE NATRIURETIC PEPTIDE - Normal BNP 5 DRUG ABUSE SCREEN 8A PANEL, URINE - Normal Amphetamine Screen, Ur Negative Barbiturate Screen, Ur Negative Benzodiazepine Screen, Ur Negative Cocaine Screen, Ur Negative Opiate Screen, Ur Negative Cannabinoid (THC) Screen, Ur Negative Oxycodone Screen, Ur Negative Fentanyl, Ur Negative Narrative: Assay cutoffs: Amphetamines 1000 ng/mL Barbiturates 200 ng/mL Benzodiazepines 200 ng/mL Cocaine 300 ng/mL Fentanyl 1 ng/mL Opiates 300 ng/mL Oxycodone 100 ng/mL THC 50 ng/mL Semi-quantitative assay for screening purposes only. Unconfirmed screening result should not be used for non-medical purposes. *ALTERNATE METHOD CONFIRMATION DONE UPON REQUEST ONLY* URINALYSIS WITH REFLEX MICROSCOPIC AND CULTURE - Normal [place] Urine 1.017 pH, Urine 5.5 Leukocytes, Urine Negative Nitrite, Urine Negative Protein, Urine Negative Glucose, Urine Negative Ketones, Urine Negative Urobilinogen, Urine 0.2 Bilirubin, Urine Negative Blood, Urine Negative CBC AND DIFFERENTIAL Narrative: The following orders were created for panel order CBC and differential. Procedure Abnormality Status --------- ------ CBC auto differential[[id number]] Abnormal Final result Please view results for these tests on the individual orders. URINALYSIS WITH REFLEX MICROSCOPIC AND CULTURE Narrative: The following orders were created for panel order Urinalysis with reflex microscopic and culture. Procedure Abnormality Status --------- ------ Urinalysis with reflex ...[[id number]] Normal Final result [place] urine culture tube[[id number]] Final result Please view results for these tests on the individual orders. Abnormal Labs Reviewed BASIC METABOLIC PANEL - Abnormal; Notable for the following components: Result Value Glucose 260 (*) All other components within normal limits CBC WITH AUTO DIFFERENTIAL - Abnormal; Notable for the following components: Immature Granulocytes Absolute 0.11 (*) All other components within normal limits POCT GLUCOSE, BLOOD - Abnormal; Notable for the following components: Glucose POCT 232 (*) All other components within normal limits XR Chest 2 Views Final Result No acute pulmonary disease. No change since the prior study performed 11/01/2024. Code 23048 -------- FINAL REPORT -------- Dictated By: Jefe Agrawal Dictated Date: 11/26/2024 09:05 ET Assigned Physician: Jefe Agrawal Reviewed and Electronically Signed By: Jefe Agrawal Signed Date: 11/26/2024 09:05 ET Workstation ID: [id number] Transcribed By: Self Edit Transcribed Date: 11/26/2024 09:05 ET I have discussed the incidental/abnormal imaging and/or lab abnormalities with the patient and haveinstructed them the need for further evaluation and workup with their primary care doctor. The laboratory results, imaging results and other diagnostic exam results were reviewed in the EMR. EKG Interpretation Critical Care Time None ? Medical Decision Making MDM as described in ED course below Medications sodium chloride 0.9 % bolus 1,000 mL (0 mL intravenous Stopped 11/25/242218) sodium chloride 0.9 % bolus 1,000 mL (0 mL intravenous Stopped 11/26/24108) ED Course as of 12/02/24 0657 Tue Nov 25, [id number] And evaluated. History and physical [...] Alberto Massey MD Clinical Impressions as of 12/02/24 0657 Shortness of breath Procedures Procedures Differential Diagnosis Bronchitis Pneumonia Pulmonary embolism Dehydration Diagnosis 1. Shortness of breath CANCELED: CT Angio Chest wo and/or w Contrast CANCELED: CT Angio Chest wo and/or w Contrast Disposition Discharge Condition: Stable ED Prescriptions None Physician Attestation TIMI Figueroa 11/25/242241 TIMI Figueroa 12/02/2457 Cosigned by Jimmy Alfonso MD at 12/02/2024 1:07 PM EST Associated attestation - Jimmy Alfonso MD - 12/02/2024 1:07 PM EST This is a split/shared visit with TIMI Figueroa. I personally performed the medical decision making (MDM) for the care of this patient on 11/25/2024 as documented below 48-year-old female with a history of borderline personality disorder well-known to the ED presents from her [place] [facility] for shortness of breath cough nausea and vomiting. Due to marked tachycardia, D-dimer for PE, which was undetectable. Labs including viral panel, imaging including chest x-ray, were unremarkable. Signed out to oncoming team pending reevaluation after fluids for tachycardia. Jimmy Alfonso MD 12/02/24 1:07 PM EST documented in this encounter Plan [...] in this encounter Results * ECG-Annotated (11/27/2024) us Provider Onbase ECG ORDERABLES Final Result * [place] urine culture tube (11/26/2024 5:10 AM EST) Pathologist [facility] Extra Tube Hold for add-ons. 11/26/2024 7:01 AM EST [facility] Comment:Auto resulted. Urine Urine specimen obtained by clean catch procedure / Unknown Non-blood Collection / Unknown 11/26/2024 5:10 AM EST 11/26/2024 5:17 AM EST us Alberto Massey MD LAB URINE ORDERABLES Final Resu lt [facility] [address] [place] [address], [place] [phone] * Urinalysis with reflex microscopic and culture (11/26/2024 5:10 AM EST) [place] Urine 1.017 1.003 - 1.030 LAB URINALYSIS - AUTOMATED METHOD 11/26/2024 5:25 AM EST [facility] pH, Urine 5.5 5.0 - 8.0 pH LAB URINALYSIS - AUTOMATED METHOD 11/26/2024 5:25 AM [facility] Leukocytes, Urine Negative Negative LAB URINALYSIS - AUTOMATED METHOD 11/26/2024 5:25 AM [facility] Nitrite, Urine Negative Negative LAB URINALYSIS - AUTOMATED METHOD 11/26/2024 5:25 AM [facility] Protein, Urine Negative <=Trace mg/dL LAB URINALYSIS - AUTOMATED METHOD 11/26/2024 5:25 AM [facility] Glucose, Urine Negative Negative mg/dL LAB URINALYSIS - AUTOMATED METHOD 11/26/2024 5:25 AM [facility] Ketones, Urine Negative Negative mg/dL LAB URINALYSIS - AUTOMATED METHOD 11/26/2024 5:25 AM [facility] Urobilinogen, Urine 0.2 0.2 - 1.0 mg/dL LAB URINALYSIS - AUTOMATED METHOD 11/26/2024 5:25 AM [facility] Bilirubin, Urine Negative Negative LAB URINALYSIS - AUTOMATED METHOD 11/26/2024 5:25 AM [facility] Blood, Urine Negative Negative LAB URINALYSIS - AUTOMATED METHOD 11/26/2024 5:25 AM [facility] Urine Urine specimen obtained by clean catch procedure / Unknown Non-blood Collection / Unknown 11/26/2024 5:10 AM EST 11/26/2024 5:17 AM EST us Alberto Massey MD LAB URINE ORDERABLES Final Resu lt [facility] [address] [place] [address], * Drug abuse screen 8a panel, urine (11/26/2024 5:10 AM EST) Amphetamine Screen, Ur Negative Negative LAB CHEMISTRY METHOD 11/26/2024 5:41 AM [facility] Comment:Certain OTC medicati ons containing ephedrine, phenylephrine, pseudoephedrine and phenylpropanolamine can cause false positive results. Barbiturate Screen, Ur Negative Negative LAB CHEMISTRY METHOD 11/26/2024 5:41 AM [facility] Benzodiazepine Screen, Ur Negative Negative LAB CHEMISTRY METHOD 11/26/2024 5:41 AM [facility] Cocaine Screen, Ur Negative Negative LAB CHEMISTRY METHOD 11/26/2024 5:41 AM [facility] Opiate Screen, Ur Negative Negative LAB CHEMISTRY METHOD 11/26/2024 5:41 AM [facility] Cannabinoid (THC) Screen, Ur Negative Negative LAB CHEMISTRY METHOD 11/26/2024 5:41 AM [facility] Comment:Specimens from patie nts taking pantoprazole sodium (Protonix) have been shown to produce false positive results. Oxycodone Screen, Ur Negative Negative LAB CHEMISTRY METHOD 11/26/2024 5:41 AM [facility] Fentanyl, Ur Negative Negative LAB CHEMISTRY METHOD 11/26/2024 5:41 AM [facility] Urine Urine specimen obtained by clean catch procedure / Unknown Non-blood Collection / Unknown 11/26/2024 5:10 AM EST 11/26/2024 5:17 AM [facility] - 11/26/2024 5:41 AM EST Assay [...] ORDERABLES Final Resu lt Performing Organization Address [facility]/ZIP Co de Phone Number [facility] [address] [place] [address], * B-type natriuretic peptide (11/26/2024 12:01 AM EST) [facility] BNP 5 <=100 pcg/mL LAB CHEMISTRY METHOD 11/26/2024 1:20 AM EST [facility] Blood Venous blood specimen / Unknown Venipuncture / Unknown 11/26/2024 12:01 AM EST 11/26/2024 12:44 AM EST Cara CAPELLAN LAB BLOOD ORDERABLES Fin al Result Performing Organization Address [facility] Co de Phone Number [facility] [address] [place] [address], * Troponin I high sensitivity (11/26/2024 12:01 AM EST) [facility] High Sensitivity Troponin I 3 <=54 ng/L LAB CHEMISTRY METHOD 11/26/2024 1:14 AM EST [facility] Blood Venous blood specimen / Unknown Venipuncture / Unknown 11/26/2024 12:01 AM EST 11/26/2024 12:44 AM EST Narrative [facility] - 11/26/2024 1:14 AM EST High levels of biotin in samples may falsely decrease hsTroponin values. ??Use caution when interpreting hsTroponin results in patients taking biotin who exhibit renal impairment (eGFR <60) or in patients taking more than 20 mg/day of biotin. us Cara CAPELLAN LAB BLOOD ORDERABLES Fin al Result Performing Organization Address [facility]/ZIP Co de Phone Number [facility] [address] [place] [address], [place] [phone] * D-dimer, quantitative (11/25/2024 10:29 PM EST) D-Dimer, Quant (D-DU) <150 <=230 ng/mL DDU LAB COAGULATION METHOD 11/25/2024 11:18 PM EST [facility] Blood Venous blood specimen / Unknown Venipuncture / Unknown 11/25/2024 10:29 PM EST 11/25/2024 11:03 PM EST Narrative [facility] - 11/25/2024 11:18 PM EST D-Dimer <230 ng/mL (D-Dimer units) is the threshold for exclusion of DVT/PE. D-Dimer may be elevated in: Critically ill, severely infected, trauma patients, DIC, acute CVA, acute GA, unstable angina, AF, old age, , and smoking. D-Dimer may be decreased with: Initiation of heparin therapy and oral anticoagulants. Cara CAPELLAN LAB BLOOD ORDERABLES Fin al Result [facility] [address] [place] [address], [place] [phone] * (ABNORMAL) POCT Glucose, blood (11/25/2024 9:40 PM EST) [facility] Glucose POCT 232(H) 70 - 100 mg/dL 11/25/2024 9:41 PM EST [facility] Blood Capillary blood specimen / Unknown 11/25/2024 9:40 PM EST 11/25/2024 9:42 PM EST Jimmy Alfonso MD LAB POINT OF CARE TE ST DOCKED DEVICE UNSOLICITED RESULTS Final Result Performing Organization Address [facility]/ZIP Co de Phone Number [facility] [address] [place] [address], [place] [phone] * XR Chest 2 Views (11/25/2024 9:17 PM EST) Anatomical Region Laterality Modality Body Radiographic Renata ging 11/26/2024 9:05 AM EST Impressions 11/26/2024 9:05 AM EST No acute pulmonary disease. No change since the prior study performed 11/01/2024. Code 98893 -------- FINAL REPORT -------- Dictated By: Jefe Agrawal Dictated Date: 11/26/2024 09:05 ET Assigned Physician: Jefe Agrawal Reviewed and Electronically Signed By: Jefe Agrawal Signed Date: 11/26/2024 09:05 ET Workstation ID: [id number] Transcribed By: Self Edit Transcribed Date: 11/26/2024 [...] change since the prior study performed11/01/2024. Code 68369 -------- FINAL REPORT -------- Dictated By: Jefe Agrawal Dictated Date: 11/26/2024 09:05 ET Assigned Physician: Jefe Agrawal Reviewed and Electronically Signed By: Jefe Agrawal Signed Date: 11/26/2024 09:05 ET Workstation ID: [id number] Transcribed By: Self Edit Transcribed Date: 11/26/2024 09:05 ET Jimmy Alfonso MD IMG XR PROCEDURES Final Result * (ABNORMAL) CBC auto differential (11/25/2024 8:24 PM EST) [facility] WBC 8.4 4.8 - 10.8 K/mcL LAB HEMETOLOGY METHOD 11/25/2024 9:01 PM [facility] RBC 4.30 3.80 - 4.80 M/mcL LAB HEMETOLOGY METHOD 11/25/2024 9:01 PM [facility] Hemoglobin 12.9 11.5 - 16.0 g/dL LAB HEMETOLOGY METHOD 11/25/2024 9:01 PM [facility] Hematocrit 40.1 35.0 - 47.0 % LAB HEMETOLOGY METHOD 11/25/2024 9:01 PM [facility] MCV 94.1 79.0 - 98.0 FL LAB HEMETOLOGY METHOD 11/25/2024 9:01 PM [facility] MCH 30.3 27.0 - 32.0 pcg LAB HEMETOLOGY METHOD 11/25/2024 9:01 PM [facility] MCHC 32.2 32.0 - 37.0 g/dL LAB HEMETOLOGY METHOD 11/25/2024 9:01 PM [facility] RDW 12.8 11.0 - 15.0 % LAB HEMETOLOGY METHOD 11/25/2024 9:01 PM [facility] Platelets 316 130 - 400 K/mcL LAB HEMETOLOGY METHOD 11/25/2024 9:01 PM [facility] MPV 9.3 7.0 - 11.0 FL LAB HEMETOLOGY METHOD 11/25/2024 9:01 PM [facility] NRBC 0.0 <1.0 % LAB HEMETOLOGY METHOD 11/25/2024 9:01 PM [facility] NRBC Absolute 0.00 <0.10 K/mcL LAB HEMETOLOGY METHOD 11/25/2024 9:01 PM [facility] Neutrophils Relative 66.9 % LAB HEMETOLOGY METHOD 11/25/2024 9:01 PM [facility] Lymphocytes Relative 19.3 % LAB HEMETOLOGY METHOD 11/25/2024 9:01 PM [facility] Monocytes Relative 9.5 % LAB HEMETOLOGY METHOD 11/25/2024 9:01 PM [facility] Eosinophils Relative 2.6 % LAB HEMETOLOGY METHOD 11/25/2024 9:01 PM [facility] Basophils Relative 0.4 % LAB HEMETOLOGY METHOD 11/25/2024 9:01 PM [facility] Immature Granulocytes Relative 1.3 % LAB HEMETOLOGY METHOD 11/25/2024 9:01 PM [facility] Neutrophils Absolute 5.59 1.50 - 7.00 K/mcL LAB HEMETOLOGY METHOD 11/25/2024 9:01 PM [facility] Lymphocytes Absolute 1.61 1.00 - 5.00 K/mcL LAB HEMETOLOGY METHOD 11/25/2024 9:01 PM [facility] Monocytes Absolute 0.79 0.20 - 1.00 K/mcL LAB HEMETOLOGY METHOD 11/25/2024 9:01 PM [facility] Eosinophils Absolute 0.22 0.00 - 0.50 K/mcL LAB HEMETOLOGY METHOD 11/25/2024 9:01 PM [facility] Basophils Absolute 0.03 0.00 - 0.20 K/mcL LAB HEMETOLOGY METHOD 11/25/2024 9:01 PM [facility] Immature Granulocytes Absolute 0.11(H) 0.00 - 0.03 K/mcL LAB HEMETOLOGY METHOD 11/25/2024 9:01 PM [facility] Blood Venous blood specimen / Unknown Venipuncture / Unknown 11/25/2024 8:24 PM EST 11/25/2024 8:52 PM EST us Jimmy Alfonso MD LAB BLOOD ORDERABLES Final Resu lt [facility] [address] [place] [address], [place] [phone] * Respiratory virus panel molecular study (11/25/2024 8:24 PM EST) Adenovirus Detection by PCR Not Detected Not Detected LAB MICROBIOLOGY METHOD 11/25/2024 9:55 PM EST [facility] Influenza A PCR Not Detected Not Detected LAB MICROBIOLOGY METHOD 11/25/2024 9:55 PM EST [facility] Influenza B PCR Not Detected Not Detected LAB MICROBIOLOGY METHOD 11/25/2024 9:55 PM EST [facility] Coronavirus 229E Not Detected Not Detected LAB MICROBIOLOGY METHOD 11/25/2024 9:55 PM EST [facility] Coronavirus HKU1 Not Detected Not Detected LAB MICROBIOLOGY METHOD 11/25/2024 9:55 PM EST [facility] Coronavirus OC43 Not Detected Not Detected LAB MICROBIOLOGY METHOD 11/25/2024 9:55 PM EST [facility] Coronavirus NL63 Not Detected Not Detected LAB MICROBIOLOGY METHOD 11/25/2024 9:55 PM EST [facility] Parainfluenza Virus 1 Not Detected Not Detected LAB MICROBIOLOGY METHOD 11/25/2024 9:55 PM EST [facility] Parainfluenza Virus 2 Not Detected Not Detected LAB MICROBIOLOGY METHOD 11/25/2024 9:55 PM EST [facility] Parainfluenza Virus 3 Not Detected Not Detected LAB MICROBIOLOGY METHOD 11/25/2024 9:55 PM EST [facility] Parainfluenza Virus 4 Not Detected Not Detected LAB MICROBIOLOGY METHOD 11/25/2024 9:55 PM [facility] RSV PCR Not Detected Not Detected LAB MICROBIOLOGY METHOD 11/25/2024 9:55 PM EST [facility] Human Metapneumovirus A and B Not Detected Not Detected LAB MICROBIOLOGY METHOD 11/25/2024 9:55 PM EST [facility] Rhinovirus/Entero virus Not Detected Not Detected LAB MICROBIOLOGY METHOD 11/25/2024 9:55 PM EST [facility] Bordetella pertussis Not Detected Not Detected LAB MICROBIOLOGY METHOD 11/25/2024 9:55 PM EST [facility] Bordetella parapertussis Not Detected Not Detected LAB MICROBIOLOGY METHOD 11/25/2024 9:55 PM EST [facility] Mycoplasma pneumo by PCR Not Detected Not Detected LAB MICROBIOLOGY METHOD 11/25/2024 9:55 PM EST [facility] Chlamydia pneumoniae Not Detected Not Detected LAB MICROBIOLOGY METHOD 11/25/2024 9:55 PM [facility] SARS COV-2 Not Detected Not Detected LAB MICROBIOLOGY METHOD 11/25/2024 9:55 PM [facility] Sputum Both anterior nares / Unknown Non-blood Collection / Unknown 11/25/2024 8:24 PM EST 11/25/2024 8:52 PM EST [facility] - 11/25/2024 9:55 PM EST Testing was performed using the [facility] [facility] [employer] Respiratory Pathogen PCR Assay. All results must [...] MICROBIOLOGY - GENERAL SARY SOLIZ Final Result [facility] [address] [place] [address], [place] [phone] * (ABNORMAL) Basic metabolic panel (11/25/2024 8:24 PM EST) Sodium 136 133 - 145 mmol/L LAB CHEMISTRY METHOD 11/25/2024 9:56 PM [facility] Potassium 3.9 3.5 - 5.5 mmol/L LAB CHEMISTRY METHOD 11/25/2024 9:56 PM [facility] Chloride 104 96 - 110 mmol/L LAB CHEMISTRY METHOD 11/25/2024 9:56 PM [facility] CO2 24 21 - 32 mmol/L LAB CHEMISTRY METHOD 11/25/2024 9:56 PM [facility] Anion Gap 8 3 - 11 LAB CHEMISTRY METHOD 11/25/2024 9:56 PM [facility] Glucose 260(H) 70 - 100 mg/dL LAB CHEMISTRY METHOD 11/25/2024 9:56 PM [facility] BUN 16 5 - 25 mg/dL LAB CHEMISTRY METHOD 11/25/2024 9:56 PM [facility] Creatinine 0.78 0.50 - 1.10 mg/dL LAB CHEMISTRY METHOD 11/25/2024 9:56 PM [facility] eGFR 95 >=60 mL/min/1. 73m2 LAB CHEMISTRY METHOD 11/25/2024 9:56 PM [facility] Comment:Calculation based on the??Chronic Kidney Disease Epidemiology Collaboration (CKD-EPI) equation refit??without adjustment for race. BUN/Creatinine Ratio 20.5 LAB CHEMISTRY METHOD 11/25/2024 9:56 PM [facility] Calcium 9.2 8.5 - 10.5 mg/dL LAB CHEMISTRY METHOD 11/25/2024 9:56 PM [facility] Blood Venous blood specimen / Unknown Venipuncture / Unknown 11/25/2024 8:24 PM EST 11/25/2024 8:52 PM EST us Jimmy Alfonso MD LAB BLOOD ORDERABLES Final Resu lt [place] [facility] [address] [place] [address], * ECG 12 lead (11/25/2024 8:19 PM EST) Ventricular Rate ECG 126 BPM GEMUSE Atrial Rate 126 BPM GEMUSE P-R Interval 154 ms GEMUSE QRS Duration 84 ms GEMUSE Q-T Interval 308 ms GEMUSE QTc 446 ms GEMUSE P Wave [place] 58 degrees GEMUSE R [place] 53 degrees GEMUSE T [place] 67 degrees GEMUSE ECG Interpretation Sinus tachycardia Possible Left atrial enlargement Borderline ECG When compared with ECG of 01-NOV-2024 02:16, No significant change was found Confirmed by ESTHER THAO ([id number]) on 11/26/2024 11:33:46 AM GEMUSE 11/25/2024 8:19 PM EST 11/26/2024 11:33 AM EST us Jimmy Alfonso MD ECG ORDERABLES Final Result Performing Organization Address [facility] Co de Phone Number GEMUSE documented in this encounter Visit Diagnoses Diagnosis [...] Henrietta Wiggins, WALKER)[phone] (Stopped - Provider: Henrietta Wiggins RN) sodium chloride 0.9 % bolus 1,000 mL [...] documented as of this encounter Care Teams Allopathic Doctor Relationship Specialty Start Date End Date Jason Marquez [address] [place] [id number] PCP - General 09/08/24 documented as of this encounter
--- NOTE | 2024-12-03 04:22 | PC.NURSE ---
pt calm and cooperative with supervisor policy change clerks and labs. belongings in laundry room, large black bag.
[2024-12-03 04:28] LABS: Basophils Percent Auto 0.3 % (0-2); Eosinophils Absolute Auto 0.3 X10*3/uL (0.0-0.4); Eosinophils Percent Auto 4.7 % (0-4); Hematocrit 38.3 % (37.0-47.0); Hemoglobin 12.7 g/dl (12.0-16.0); Imm Gran Abs Auto 0.06 X10*3/uL (0.00-0.03); Imm Gran Pct Auto 0.8 % (0.0-0.4); Lymphocytes Absolute Auto 1.5 X10*3/uL (1.2-4.9); Lymphocytes Percent Auto 20.3 % (20-40); MANUAL DIFF FLAG NO; Mean Corpuscular HGB Conc 33.2 g/dl (31.0-35.0); Mean Corpuscular Hemoglobin 30.8 pg (27.0-33.0); Mean Corpuscular Volume 92.7 fL (80.0-98.0); Mean Platelet Volume 8.8 fL (9.4-12.3); Monocytes Absolute Auto 0.6 X10*3/uL (0.1-1.2); Monocytes Percent Auto 8.1 % (2-11); Neutrophils Absolute Auto 4.8 x10*3/uL (2.0-8.3); Neutrophils Percent Auto 65.8 % (45-73); Platelet Count 258 X10*3/uL (160-400); Red Blood Count 4.13 X10*6/uL (4.20-5.50); Red Cell Distribution Width 13.1 % (11.0-16.0); White Blood Count 7.3 X10*3/uL (4.8-10.8)
[2024-12-03 04:42] LABS: Anion Gap 16 (12-20); Blood Urea Nitrogen 11 mg/dL (9-16); Calcium 9.5 mg/dL (8.4-10.2); Carbon Dioxide 22 mmol/L (22-29); Chloride 107 mmol/L (96-108); Creatinine Clr Calc Pharmacy 128.6; Estimated Glomerular Filt Rate > 60; Ethanol 11 mg/dL; Glucose Random 172 mg/dL (60-115); Potassium 3.7 mmol/L (3.3-5.1); Sodium 141 mmol/L (135-145)
[2024-12-03 04:46] LABS: Acetaminophen LAB < 3 mcg/mL (<30); Salicylate < 5.0 mg/dL (15-30)
[2024-12-03 04:50] LABS: Appearance Urine Clear; Color Urine Yellow; Glucose Urine UA Negative (Negative); Leukocyte Esterase Urine Negative (Negative); Nitrite Urine Negative (Negative); PH 5.5 (5.0-9.0); Specific Gravity - Urine 1.015 (1.005-1.025); Urine Blood Negative (Negative); Urine Ketones Negative (Negative); Urine Protein Negative (Neg-Trace)
[2024-12-03 04:51] LABS: UPreg QC Valid YES; Urine Pregnancy NEGATIVE (NEGATIVE)
[2024-12-03 05:01] LABS: Amphetamine Screen Urine Not Detected (Not Detect); Barbiturates, Urine Not Detected (Not Detect); Benzodiazepines Screen Urine Not Detected (Not Detect); Buprenorphine Scr Not Detected (Not Detect); Cannabinoid Screen Urine Not Detected (Not Detect); Cocaine Screen Urine Not Detected (Not Detect); Fentanyl, urine Not Detected (Not Detect); Methadone Screen, Urine Not Detected (Not Detect); Opiate Screen Urine Not Detected (Not Detect); Oxycodone Screen Urine Not Detected (Not Detect); Phencyclidine Screen Urine Not Detected (Not Detect)
[2024-12-03 05:05] LABS: Influenza A PCR NEGATIVE (Negative); Influenza B PCR NEGATIVE (Negative); Resp Syncy Virus RNA Qual PCR NEGATIVE (Negative); SARS COV2 PCR INHOUSE NEGATIVE (Negative)
--- NOTE | 2024-12-03 05:06 | ED_ITS ---
HPI - General Adult General Chief complaint: Dyspnea Stated complaint: Coming from senior care SOB, speaks full sentences Time Seen by Provider: 12/03/24 05:00 Source: patient and EMS Mode of arrival: EMS Limitations: no limitations History of Present Illness ED Provider: DR. Allison HPI narrative: 48-year-old female well known to our ED staff for frequent ED visits for psych purpose presented from a senior care for chest pain and shortness of breath on arrival to the ED patient stated that her symptoms has resolved no coughing, no exposure to sick contacts, no recent travel, no lower extremity swelling. patient had a cigarette while she was in the ED. Patient also stated that she is hearing voices that telling her to kill herself. Related Data Home Medications ?Medication ?Instructions ?Recorded ?Confirmed albuterol sulfate 90 mcg/actuation 2 puff inhalation Q6H PRN Wheezing 06/24/24 11/04/24 aerosol inhaler amlodipine 5 mg tablet 5 mg PO DAILY 06/24/24 11/04/24 atorvastatin 10 mg tablet 10 mg PO DAILY 06/24/24 11/04/24 buspirone 10 mg tablet 10 mg PO BID 06/24/24 11/04/24 clozapine 100 mg tablet 100 mg PO BEDTIME 06/24/24 11/04/24 fluoxetine 40 mg capsule 80 mg PO DAILY 06/24/24 11/04/24 fluphenazine HCl 5 mg tablet 15 mg PO BID 06/24/24 11/04/24 montelukast 10 mg tablet 10 mg PO BEDTIME 06/24/24 11/04/24 pantoprazole 20 mg tablet,delayed 40 mg PO BID 06/24/24 11/04/24 release prazosin 2 mg capsule 4 mg PO BEDTIME 06/24/24 11/04/24 metformin 500 mg tablet 500 mg PO BID 07/15/24 11/04/24 famotidine 20 mg tablet 10 mg PO TIDWM 10/01/24 11/04/24 ferrous sulfate 325 mg (65 mg 325 mg PO BID 10/01/24 11/04/24 iron) tablet fluticasone fur. 200 mcg-umeclid 1 ea inhalation DAILY 10/01/24 11/04/24 62.5 mcg-vilant 25 mcg inhalat.powder (Trelegy Ellipta) mirtazapine 15 mg tablet 15 mg PO BEDTIME 10/01/24 11/04/24 nicotine 21 mg/24 hr daily 1 patch topical DAILY PRN Nicotine 11/04/24 11/04/24 transdermal patch Cravings Previous Rx's ?Medication ?Instructions ?Recorded nystatin 100,000 unit/gram topical 1 appl topical BID #60 grams 09/25/24 powder temazepam 15 mg capsule 15 mg PO BEDTIME PRN if awake at 10/06/24 2AM 30 days #30 caps Allergies Allergy/AdvReac Type Severity Reaction Status Date / Time azithromycin [AZITHROMYCIN] Allergy Severe Rash Verified 12/03/24 03:19 Fish Containing Products Allergy Severe Anaphylaxis Verified 12/03/24 03:19 codeine [Codeine] Allergy Intermediate Rash Verified 12/03/24 03:19 Penicillins Allergy Intermediate Rash Verified 12/03/24 03:19 prednisone [Prednisone] Allergy Intermediate Rash Verified 12/03/24 03:19 Sulfa (Sulfonamide Allergy Intermediate Rash Verified 12/03/24 03:19 Antibiotics) [Sulfa (Sulfonamides)] ziprasidone [From Geodon] Allergy Intermediate dysuria, Verified 12/03/24 03:19 rash lithium Allergy Unknown Rash Verified 12/03/24 03:19 Review of Systems 2 Review of Systems: All other systems are reviewed and are negative Constitutional: Reports as per HPI and Reports no additional constitutional complaints Eyes: Reports as per HPI and Reports no additional eye complaints Reports system reviewed and no additional complaints, except as documented Cardiovascular: Reports as per HPI and Reports no additional cardiovascular complaints Respiratory: Reports as per HPI and Reports no additional respiratory complaints Gastrointestinal: Reports as per HPI and Reports no additional gastrointestinal complaints Genitourinary: Reports no additional female genitourinary complaints Musculoskeletal: Reports no additional musculoskeletal complaints Skin/Breast: Reports system reviewed and no additional complaints, except as docu Psychiatric: Reports no additional psychiatric complaints Endocrine: Reports no additional endocrine complaints Hematologic/Lymphatic: Reports no additional hematologic/lymphatic complaints Allergic/Immunologic: Reports no additional allergic/immunologic complaints Reports system reviewed and no additional complaints, except as documented and Reports Abnormal speech present PMFSH Past Medical History Medical History Asthma Suicidal ideation MDD (major depressive disorder), recurrent episode, severe Chest pain Acute anxiety COVID-19 Full body hives Major depression Dizziness Suicide attempt UTI (urinary tract infection) Acetaminophen overdose COVID History of attempted suicide History of non-suicidal self-harm Hypomagnesemia Suicide attempt Suicide attempt by acetaminophen overdose Acetaminophen overdose Depression Diabetes type 2, controlled Borderline personality disorder PTSD (post-traumatic stress disorder) Overdose GERD (gastroesophageal reflux disease) Mood disorder Hyperlipidemia Bronchitis Social History Social History Household Members: Other Household Members Other:: senior care members Housing: Other Housing Other:: senior care Do you presently have visiting nurse or other home services: No Unable to assess alcohol history related to: Unknown Alcohol intake: never Comment: sitter in room Patient Tobacco Use Status: Current everyday Tobacco user Tobacco use type: Cigarette Cigarette Packs Per Day: 1 Cigarettes Per Day: 20.0 Years Smoked: 10 Smoked in Last 30 Days: Yes e-Cigarette/Vaping Use: Never Used Second Hand Smoke Exposure: No Use of substances other than those prescribed or required for medical reasons: No Substance Use Type: Caffiene Advance Directives: No Advance Directives Information Provided: Yes Do you have a plan to hurt others: No Plan Patient : No service: No Current occupational status: unemployed and disabled Sexual orientation: Straight/Heterosexual Physical Exam ED Vital Signs: Vital Signs - 24 hr 12/03/24 03:07 Temperature 98.1 F Pulse Rate 117 H Respiratory Rate 18 Blood Pressure 142/95 H Pulse Oximetry 94 Oxygen Delivery Method Room Air BMI result Body Mass Index 43.5 Vital signs have been reviewed and appear to be correct. Blood pressure elevated. Heart rate normal. Respiratory rate normal. Temperature normal. Oxygen saturation normal. Appearance: Alert. Oriented X3. No acute distress. Head: Normal external exam. Normocephalic. Atraumatic. No Harper signs noted. No raccoon eyes noted Eyes: PERRLA. EOMI. Conjunctiva and sclera normal. Eyelids normal. ENT: TM's Normal. Pharynx normal. Uvula midline. Moist mucous membranes. No trismus noted. No drooling noted. No muffled voice noted. Neck: Normal inspection. Neck supple. FROM. No adenopathy. Thyroid Normal. No meningeal signs. No neck mass noted. CVS: Normal heart rate and rhythm. Heart sound normal. No murmurs noted. Pulses normal throughout. Respiratory: No respiratory distress. Painless inspiration. Breath sounds normal. No wheezes/rales/rhonchi noted. Chest nontender. No accessory muscle usage noted or decreased air movement noted. Abdomen: Soft and nontender. Bowel sounds normal in all 4 quadrants. No distention noted. No organomegaly noted. No visible injury noted. Back: No CVA tenderness. Full range of motion noted. Skin: Skin warm and dry. Normal skin color. Normal skin turgor. No rashes/lesions/lacerations noted. Extremities: No lower extremity edema. Extremities exhibit normal range of motion. Extremities nontender. Neuro: Oriented X 3. Cranial nerve exam: II-XII are grossly intact No motor deficit. No sensory deficit. Reflexes normal. Patient Orientation: Person, Place, Time and Situation, okay hygiene and grooming. Fair eye contact, attentive, no tics or tremors. Level of Consciousness: Awake, Appropriate and Alert Patient Behavior: Appropriate, Guarded, Cooperative and Anxious Mood Description: Constricted, Blunted and Apprehensive Affect Description: Constricted, Blunted and Apprehensive Patient Cognition Impaired: No Ability to Follow Directions: Excellent Speech Pattern: Clear, Appropriate and Spontaneous Speech, nonpressured, spontaneous with regular rate and rhythm, normal volume and prosody. No dysarthria. Memory Description: Intact, Immediate Intact and Short Term Intact Hallucinations: None Delusions: Not Present Thought Process: Intact Thought Content: +For auditory hallucination, + SI with plan, negative sign for HI. Depressive Symptoms: Not present. Judgement and Insight: Limited but adequate. Course Reevaluation(s) Reevaluation #1: 48-year-old female history of cigarette smoking and asthma presented shortness of breath that resolved while she is in the ED, patient is asymptomatic in the ED satting 94% on room air patient smoked a cigarette while she is in the ED. Medically cleared for care team evaluation. Time: 05:09 Medical Decision Making Differential Diagnosis Differential Diagnoses: The differential diagnosis associated with the presentation includes ( Pneumonia, pneumothorax, pleural effusion, RSV, influenza, COVID-19 infection, electrolyte derangement, severe anemia, medical clearance for psych evaluation, SI, HI.) Admission/Observation Consideration of admission/observation: Escalation of care including admission/observation considered Lab Data MDM Lab Attestation statement: I reviewed the patient's lab results. 12/03/24 04:22 12/03/24 04:22 Labs: Lab Results 0212/03/24 12/03/24 Range/Units 04:22 04:39 04:40 WBC 7.3 (4.8-10.8) X10*3/uL RBC 4.13 L (4.20-5.50) X10*6/uL Hgb 12.7 (12.0-16.0) g/dl Hct 38.3 (37.0-47.0) % MCV 92.7 (80.0-98.0) fL MCH 30.8 (27.0-33.0) pg MCHC 33.2 (31.0-35.0) g/dl RDW 13.1 (11.0-16.0) % Plt Count 258 (160-400) X10*3/uL MPV 8.8 L (9.4-12.3) fL Immature Gran % (Auto) 0.8 H (0.0-0.4) % Neut % (Auto) 65.8 (45-73) % Lymph % (Auto) 20.3 (20-40) % Gray % (Auto) 8.1 (2-11) % Eos % (Auto) 4.7 H (0-4) % Baso % (Auto) 0.3 (0-2) % Lymph # (Auto) 1.5 (1.2-4.9) X10*3/uL Gray # (Auto) 0.6 (0.1-1.2) X10*3/uL Eos # (Auto) 0.3 (0.0-0.4) X10*3/uL Baso # (Auto) 0.0 (0.0-0.2) X10*3/uL Abs Immat Gran (auto) 0.06 H (0.00-0.03) X10*3/uL Absolute Neuts (auto) 4.8 (2.0-8.3) x10*3/uL Absolute Nucleated RBC 0.000 (0.0-0.012) X10*3/uL Nucleated RBC % (auto) 0.0 (0.0-0.2) /100WBC Sodium 141 (135-145) mmol/L Potassium 3.7 (3.3-5.1) mmol/L Chloride 107 (96-108) mmol/L Carbon Dioxide 22 (22-29) mmol/L Anion Gap 16 (12-20) BUN 11 (9-16) mg/dL Creatinine 0.68 (0.5-1.4) mg/dL Estim Creat Clear Calc 128.6 Estimated GFR > 60 Random Glucose 172 H (60-115) mg/dL Calcium 9.5 (8.4-10.2) mg/dL Urine Color Yellow Urine Appearance Clear Urine pH 5.5 (5.0-9.0) Ur Specific [place] 1.015 (1.005-1.025) Urine Protein Negative (Neg-Trace) mg/dL Urine Glucose (UA) Negative (Negative) mg/dL Urine Ketones Negative (Negative) mg/dL Urine Blood Negative (Negative) Urine Nitrite Negative (Negative) Ur Leukocyte Esterase Negative (Negative) Urine Test NEGATIVE (NEGATIVE) Salicylates < 5.0 L (15-30) mg/dL Urine Opiates Screen Not Detected (Not Detect) Ur Buprenorphine Scrn Not Detected (Not Detect) ng/mL Ur Oxycodone Screen Not Detected (Not Detect) ng/mL Urine Methadone Screen Not Detected (Not Detect) ng/mL Urine Fentanyl Screen Not Detected (Not Detect) Acetaminophen < 3 (<30) mcg/mL Ur Barbiturates Screen Not Detected (Not Detect) Ur Phencyclidine Scrn Not Detected (Not Detect) Ur Amphetamines Screen Not Detected (Not Detect) U Benzodiazepines Scrn Not Detected (Not Detect) Urine Cocaine Screen Not Detected (Not Detect) U Marijuana (THC) Screen Not Detected (Not Detect) Ethyl Alcohol 11 mg/dL Influenza Type A (PCR) NEGATIVE (Negative) Influenza Type B (PCR) NEGATIVE (Negative) RSV RNA Qual (PCR) NEGATIVE (Negative) SARS-CoV-2 RNA (RT-PCR) NEGATIVE (Negative) Independent Interpretation I performed an independent interpretation of an: Plain X-Ray ( Chest: No acute pathology.) Radiology Impression Discussion of test interpretation with radiology: I have reviewed the radiologist's reading. Discharge Plan Discharge Clinical Impression: Auditory hallucination, Suicidal ideation Patient Disposition: Still a Patient Prescriptions: No Action ferrous sulfate 325 mg (65 mg iron) Tablet 325 mg PO BID mirtazapine 15 mg tablet 15 mg PO BEDTIME Trelegy Ellipta 200-62.5-25 mcg blister with device 1 ea inhalation DAILY famotidine 20 mg tablet 10 mg PO TIDWM temazepam 15 mg Capsule 15 mg PO BEDTIME PRN (Reason: if awake at 2AM) 30 Days Qty: 30 0RF fluoxetine 40 mg capsule 80 mg PO DAILY atorvastatin 10 mg tablet 10 mg PO DAILY clozapine 100 mg tablet 100 mg PO BEDTIME amlodipine 5 mg tablet 5 mg PO DAILY pantoprazole 20 mg tablet,delayed release (DR/EC) 40 mg PO BID buspirone 10 mg tablet 10 mg PO BID montelukast 10 mg tablet 10 mg PO BEDTIME albuterol sulfate 90 mcg/actuation HFA aerosol inhaler 2 puff inhalation Q6H PRN (Reason: Wheezing) fluphenazine HCl 5 mg tablet 15 mg PO BID prazosin 2 mg capsule 4 mg PO BEDTIME metformin 500 mg tablet 500 mg PO BID nystatin 100,000 unit/gram powder 1 appl topical BID Qty: 60 0RF nicotine 21 mg/24 hr patch 24 hour 1 patch topical DAILY PRN (Reason: Nicotine Cravings) Print Language: [place]
[2024-12-03 08:36] VITALS: BP 129/93; PULSE 108; RESP 12; TEMP 36.9; O2SAT 94
--- NOTE | 2024-12-03 10:58 | PC.NURSE ---
patient given back belongings, dc paperwork given, patient given voucher for bus by CARE team
== END 2024-12-03 11:56 | disposition home or self-care (01) ==
PROVIDERS: Emergency Provider Emergency Medicine
DX: R44.0 Auditory hallucinations (principal); R45.851 Suicidal ideations; R06.02 Shortness of breath; F32.A Depression, unspecified; F60.3 Borderline personality disorder; F41.9 Anxiety disorder, unspecified; E11.9 Type 2 diabetes mellitus without complications; E78.5 Hyperlipidemia, unspecified; D64.9 Anemia, unspecified; K21.9 Gastro-esophageal reflux disease without esophagitis; F17.210 Nicotine dependence, cigarettes, uncomplicated; F12.90 Cannabis use, unspecified, uncomplicated; E66.9 Obesity, unspecified; Z68.41 Body mass index [BMI] 40.0-44.9, adult; Z91.51 Personal history of suicidal behavior; Z91.52 Personal history of nonsuicidal self-harm; Z79.84 Long term (current) use of oral hypoglycemic drugs; Z79.02 Long term (current) use of antithrombotics/antiplatelets; Z79.899 Other long term (current) drug therapy; Z03.818 Encounter for observation for suspected exposure to other biological agents ruled out
CPT/HCPCS: 0241U; 36415; 71045; 80048; 80143; 80179; 80307; 81003; 81025; 85025; 99284; 99285; S9485

== ENCOUNTER → 2024-12-03 03:25 | Outpatient (BNV) | payer MEDICARE, MEDICAID, SELFPAY | PROVIDERS: Emergency Provider Emergency Medicine; Visit Provider Specialist | DX: R06.02 Shortness of breath (principal) | CPT/HCPCS: 71045 ==

== ENCOUNTER 2024-12-04 10:07 | Outpatient (REF) | payer MEDICARE, MEDICAID, SELFPAY ==
[2024-12-04 10:35] LABS: MANUAL DIFF FLAG NO
[2024-12-04 11:05] LABS: Basophils Percent Auto 0.4 % (0-2); Eosinophils Absolute Auto 0.3 X10*3/uL (0.0-0.4); Eosinophils Percent Auto 3.6 % (0-4); Hematocrit 40.2 % (37.0-47.0); Hemoglobin 13.3 g/dl (12.0-16.0); Imm Gran Abs Auto 0.08 X10*3/uL (0.00-0.03); Imm Gran Pct Auto 1.1 % (0.0-0.4); Lymphocytes Absolute Auto 1.3 X10*3/uL (1.2-4.9); Lymphocytes Percent Auto 17.5 % (20-40); Mean Corpuscular HGB Conc 33.1 g/dl (31.0-35.0); Mean Corpuscular Volume 93.7 fL (80.0-98.0); Mean Platelet Volume 9.1 fL (9.4-12.3); Monocytes Absolute Auto 0.7 X10*3/uL (0.1-1.2); Monocytes Percent Auto 8.9 % (2-11); Neutrophils Absolute Auto 5.2 x10*3/uL (2.0-8.3); Neutrophils Percent Auto 68.5 % (45-73); Platelet Count 270 X10*3/uL (160-400); Red Blood Count 4.29 X10*6/uL (4.20-5.50); Red Cell Distribution Width 13.2 % (11.0-16.0); White Blood Count 7.6 X10*3/uL (4.8-10.8)
--- OUTSIDE RECORDS SUMMARY | 2024-12-04 11:05 | XMS_ITS | Encounter Summary ---
Author Organization [facility] Address [address] [place] [address] Care Team Providers Care Baggage Porter Name Role Phone Nikki Alcantar MD Primary Care Provider Michelle Norris MD Primary Care Provider Unavail able [facility] Primary Care Provider [facility] Michelle Norris MD Primary Care Provider Unavail [facility] Rosetta Diamond MD Primary Care Provider + Encounter Details Date Type Department Care Team Description 11/06/2008 Hospital Medical Records [address] [place] [phone] Bandar Ryan [address] [facility] [address] [place] [address] Social History Tobacco Use Types Packs/Day Years [...] on filedocumented in this encounter Care Teams Baggage Porter Relationship Specialty Start Date End Date Nikki Alcantar MD [address] [place] [address] PCP - General 06/26/05 03/04/17 Michelle Norris MD [address] [place] [address] PCP - General Internal Medicine 03/05/17 03/16/21 [facility]cp [address] [place] [id number] PCP - General Internal Medicine 03/17/21 05/04/21 Michelle Norris MD [address] [place] [phone] PCP - General Internal Medicine 05/05/21 09/13/22 Rosetta Diamond MD [address] [place] [address] PCP - General Internal Medicine 09/14/22 documented as of this encounter
--- OUTSIDE RECORDS SUMMARY | 2024-12-04 11:05 | XMS_ITS | Encounter Summary ---
Author Organization [facility] Address [address] [place] [address] Care Team Providers Care Jewelry Designer Name Role Phone Nikki Alcantar MD Primary Care Provider [phone] Michelle Norris MD Primary Care Provider Unavail [facility] Primary Care Provider [facility] Michelle Norris MD Primary Care Provider Unavail [facility] Rosetta Diamond MD Primary Care Provider + Encounter Details Date Type Department Care Team Description 01/21/2009 Hospital Medical Records [address] [place] [phone] Nathaniel Wade MD Social History Tobacco Use Types Packs/Day [...] on filedocumented in this encounter Care Teams Jewelry Designer Relationship Specialty Start Date End Date Nikki Alcantar MD [address] [place] [phone] PCP - General 06/26/05 03/04/17 Michelle Norris MD [address] [place] [address] PCP - General Internal Medicine 03/05/17 03/16/21 [facility], Pcp [address] [place] [address] PCP - General Internal Medicine 03/17/21 05/04/21 Michelle Norris MD [address] [place] [address] PCP - General Internal Medicine 05/05/21 09/13/22 Rosetta Diamond MD [address] [place] [phone] PCP - General Internal Medicine 09/14/22 documented as of this encounter
--- OUTSIDE RECORDS SUMMARY | 2024-12-04 11:05 | XMS_ITS | Encounter Summary ---
Author Organization [facility] Address [address] [place] [address] Care Team Providers Care Cost Controller Name Role Phone Michelle Norris MD Primary Care Provider [facility]avail [facility] MD Primary Care Provider Unavail able Rosetta Diamond MD Primary Care Provider + Encounter Details Date Type Department Care Team Description 03/27/2019 Hospital Medical Records [address] [place] [id number] Sourav Lucas Social History Tobacco Use Types [...] on filedocumented in this encounter Care Teams Cost Controller Relationship Specialty Start Date End Date Michelle Norris MD PCP - General Internal Medicine 03/05/17 03/16/21 [facility], Pcp PCP - General Internal Medicine 03/17/21 05/04/21 Michelle Norris MD PCP - General Internal Medicine 05/05/21 09/13/22 Rosetta Diamond MD [address] [place] [phone] PCP - General Internal Medicine 09/14/22 documented as of this encounter
--- OUTSIDE RECORDS SUMMARY | 2024-12-04 11:05 | XMS_ITS | Encounter Summary ---
Author Organization [facility] Address [address] [place] [address] Care Team Providers Care Geodetic Computator Name Role Phone Nikki Alcantar MD Primary Care Provider [phone] Michelle Norris MD Primary Care Provider Unavail [facility] Primary Care Provider [facility] Michelle Norris MD Primary Care Provider Unavail [facility] Rosetta Diamond MD Primary Care Provider + Encounter Details Date Type Department Care Team Description 10/15/2008 Hospital Medical Records [address] [place] [id number] Hank Enciso Social History Tobacco Use Types [...] on filedocumented in this encounter Care Teams Geodetic Computator Relationship Specialty Start Date End Date Nikki Alcantar MD [address] [place] [address] PCP - General 06/26/05 03/04/17 Michelle Norris MD [address] [place] [address] PCP - General Internal Medicine 03/05/17 03/16/21 [facility], Pcp [address] [place] [phone] PCP - General Internal Medicine 03/17/21 05/04/21 Michelle Norris MD [address] [place] [address] [place] [address] PCP - General Internal Medicine 05/05/21 09/13/22 Rosetta Diamond MD [address] [place], [place] [phone] PCP - General Internal Medicine 09/14/22 documented as of this encounter
--- OUTSIDE RECORDS SUMMARY | 2024-12-04 11:05 | XMS_ITS | Encounter Summary ---
Author Organization [facility] Address [address] [place] [address] Care Team Providers Care Elevated Work Platform Operator Name Role Phone Nikki Alcantar MD Primary Care Provider [phone] Michelle Norris MD Primary Care Provider Unavail [facility] Primary Care Provider [facility] Michelle Norris MD Primary Care Provider Unavail [facility] Rosetta Diamond MD Primary Care Provider + Encounter Details Date Type Department Care Team Description 03/11/2016 Hospital Medical Records [address] [place] [id number] Reena Dominguez Social History Tobacco Use Types [...] on filedocumented in this encounter Care Teams Elevated Work Platform Operator Relationship Specialty Start Date End Date Nikki Alcantar MD [address] [place] [id number] PCP - General 06/26/05 03/04/17 Michelle Norris MD [address] [place] [address] PCP - General Internal Medicine 03/05/17 03/16/21 [facility], Pcp [address] [place] [address] PCP - General Internal Medicine 03/17/21 05/04/21 Michelle Norris MD [address] [place] [address] [place] [address] PCP - General Internal Medicine 05/05/21 09/13/22 Rosetta Diamond MD [address] [place], [place] [phone] PCP - General Internal Medicine 09/14/22 documented as of this encounter
--- OUTSIDE RECORDS SUMMARY | 2024-12-04 11:05 | XMS_ITS | Encounter Summary ---
Author Organization [facility] Address [address] [place] [address] Care Team Providers Care Cone Runner Name Role Phone Michelle Norris MD Primary Care Provider Unavail able [facility] Primary Care Provider [facility] Michelle Lagos MD Primary Care Provider Unavail able Rosetta Diamond MD Primary Care Provider + Reason for Visit * Reason Onset Date Comments TEST RESULTS 06/12/2019 result notes Encounter Details Date Type Department Care Team Description 06/12/2019 Telephone Adult Medicine [address] [address] Lona Rowell PA-C TEST RESULTS (result notes) [...] on filedocumented in this encounter Care Teams Cone Runner Relationship Specialty Start Date End Date Michelle Norris MD PCP - General Internal Medicine 03/05/17 03/16/21 [facility], Pcp PCP - General Internal Medicine 03/17/21 05/04/21 Michelle Norris MD PCP - General Internal Medicine 05/05/21 09/13/22 Rosetta Diamond MD [address] [place] [address] PCP - General Internal Medicine 09/14/22 documented as of this encounter
--- OUTSIDE RECORDS SUMMARY | 2024-12-04 11:05 | XMS_ITS | Encounter Summary ---
Author Organization [facility] Address [address] [place] [address] Care Team Providers Care Drill Press Operator Numerical Control Name Role Phone Michelle Norris MD Primary Care Provider Unavail able [facility] [place] [facility] Michelle Lagos MD Primary Care Provider Unavail able Rosetta Diamond MD Primary Care Provider + Reason for Visit * Reason Onset Date Comments refill request 06/11/2019 Encounter Details Date Type Department Care Team Description 06/11/2019 Refill Adult Medicine [address] [id number] Michelle Norris MD refill request Social History Tobacco Use Types [...] encounter Miscellaneous Notes * Telephone Encounter - Melissa Nath M.A. - 06/12/2019 2:11 PM EDT Lab Results Component Value Date CHOL 213 06/05/2016 LDL 126 06/05/2016 HDL 47 06/05/2016 TRIG 204 06/05/2016 SGOT 15 11/06/2012 SGPT 15 11/06/2012 Rx is historical * Telephone Encounter - Lenore Harris - 06/11/2019 12:12 PM EDT Patient would like script to be: E-PRESCRIBED/FAXED TO PHARMACY WHEN WAS THE PATIENT'S LAST APPOINTMENT IN ADULT MEDICINE? 06/05/2019 WHEN WAS THE LAST TIME THE PATIENT SAW THEIR PCP? 05/19/2019 Does patient have an upcoming appointment? Yes 06/24/2019 (THE MEDICATION REQUESTED IS ON THE MED [...] / Plan: [place] / Product Type: MEDICARE [id number] documented in this encounter Plan of Treatment Not on file documented as of this encounter Visit Diagnoses Not on filedocumented in this encounter Care Teams Drill Press Operator Numerical Control Relationship Specialty Start Date End Date Michelle Norris MD PCP - General Internal Medicine 03/05/17 03/16/21 [facility] [place] PCP - General Internal Medicine 03/17/21 05/04/21 Michelle Norris MD PCP - General Internal Medicine 05/05/21 09/13/22 Rosetta Diamond MD [address] [place] [phone] PCP - General Internal Medicine 09/14/22 documented as of this encounter
--- OUTSIDE RECORDS SUMMARY | 2024-12-04 11:05 | XMS_ITS | Encounter Summary ---
Author Organization [facility] Address [address] [place] [address] Care Team Providers Care Optometry Assistant Name Role Phone Michelle Norris MD Primary Care Provider Unavail able [facility] MD Primary Care Provider Unavail able Rosetta Diamond MD Primary Care Provider + Encounter Details Date Type Department Care Team Description 04/21/2019 Hospital Medical Records [address] [place] [id number] Ron Frausto Social History Tobacco Use Types [...] on filedocumented in this encounter Care Teams Optometry Assistant Relationship Specialty Start Date End Date Michelle Norris MD PCP - General Internal Medicine 03/05/17 03/16/21 [facility], Pcp PCP - General Internal Medicine 03/17/21 05/04/21 Michelle Norris MD PCP - General Internal Medicine 05/05/21 09/13/22 Rosetta Diamond MD [address] [place] [phone] PCP - General Internal Medicine 09/14/22 documented as of this encounter
--- OUTSIDE RECORDS SUMMARY | 2024-12-04 11:05 | XMS_ITS | Encounter Summary ---
Author Organization [facility] Address [address] [place] [address] Care Team Providers Care Surgical Scheduler Name Role Phone Nikki Alcantar MD Primary Care Provider [phone] Michelle Norris MD Primary Care Provider Unavail [facility] Primary Care Provider [facility] Michelle Norris MD Primary Care Provider Unavail [facility] Rosetta Diamond MD Primary Care Provider + Encounter Details Date Type Department Care Team Description 03/27/2016 Hospital Medical Records [address] [place] [phone] Rod Mccoy MD Social History Tobacco Use [...] on filedocumented in this encounter Care Teams Surgical Scheduler Relationship Specialty Start Date End Date Nikki Alcantar MD [address] [place] [phone] PCP - General 06/26/05 03/04/17 Michelle Norris MD [address] [place] [address] PCP - General Internal Medicine 03/05/17 03/16/21 [facility], Pcp [address] [place] [phone] PCP - General Internal Medicine 03/17/21 05/04/21 Michelle Norris MD [address] [place] [address] PCP - General Internal Medicine 05/05/21 09/13/22 Rosetta Diamond MD [address] [place] [address] PCP - General Internal Medicine 09/14/22 documented as of this encounter
--- OUTSIDE RECORDS SUMMARY | 2024-12-04 11:06 | XMS_ITS | Encounter Summary ---
Author Organization [facility] Address [address] [place] [address] Care Team Providers Care Rehabilitation Case Coordinator Name Role Phone Nikki Alcantar MD Primary Care Provider Michelle Norris MD Primary Care Provider Unavail [facility] Primary Care Provider [facility] Michelle Norris MD Primary Care Provider Unavail [facility] Rosetta Diamond MD Primary Care Provider + Encounter Details Date Type Department Care Team Description 12/22/2015 Hospital Medical Records [address] [place] [id number] Lucita Eileenelizabeth Social History Tobacco Use Types Packs/Day Years [...] on filedocumented in this encounter Care Teams Rehabilitation Case Coordinator Relationship Specialty Start Date End Date Nikki Alcantar MD [address] [place] [id number] PCP - General 06/26/05 03/04/17 Michelle Norris MD [address] [place] [address] PCP - General Internal Medicine 03/05/17 03/16/21 [facility], Pcp [address] [place] [address] PCP - General Internal Medicine 03/17/21 05/04/21 Michelle Norris MD [address] [place] [address] [place] [address] PCP - General Internal Medicine 05/05/21 09/13/22 Rosetta Diamond MD [address] [place], [place] [phone] PCP - General Internal Medicine 09/14/22 documented as of this encounter
--- OUTSIDE RECORDS SUMMARY | 2024-12-04 11:06 | XMS_ITS | Encounter Summary ---
Author Organization [facility] Address [address] [place] [address] Care Team Providers Care Container Shop Welder Name Role Phone Nikki Alcantar MD Primary Care Provider [phone] Michelle Norris MD Primary Care Provider Unavail [facility] Primary Care Provider [facility] Michelle Norris MD Primary Care Provider Unavail [facility] Rosetta Diamond MD Primary Care Provider + Encounter Details Date Type Department Care Team Description 09/28/2012 Night Triage Doc Medical Records [address] [place] [id number] Abstract, Provider Social History Tobacco Use Types [...] on filedocumented in this encounter Care Teams Container Shop Welder Relationship Specialty Start Date End Date Nikki Alcantar MD [address] [place] [phone] PCP - General 06/26/05 03/04/17 Michelle Norris MD [address] [place] [address] PCP - General Internal Medicine 03/05/17 03/16/21 [facility], Pcp [address] [place] [address] PCP - General Internal Medicine 03/17/21 05/04/21 Michelle Norris MD [address] [place], [place] [phone] PCP - General Internal Medicine 05/05/21 09/13/22 Rosetta Diamond MD [address] [place] [address] PCP - General Internal Medicine 09/14/22 documented as of this encounter
--- OUTSIDE RECORDS SUMMARY | 2024-12-04 11:06 | XMS_ITS | Encounter Summary ---
Author Organization [facility] Address [address] [place] [address] Care Team Providers Care Hvac R Tech Name Role Phone Nikki Alcantar MD Primary Care Provider Michelle Norris MD Primary Care Provider Unavail able [facility] [place] [facility] Norris MD Primary Care Provider Unavail able Rosetta Diamond MD Primary Care Provider + Encounter Details Date Type Department Care Team Description 09/29/2012 Telephone Adult Medicine [facility] [address] [place] [address] [phone] Nikki Alcantar MD [address] [place] [address] [phone] Social History Tobacco Use Types Packs/Day Years [...] on filedocumented in this encounter Care Teams Hvac R Tech Relationship Specialty Start Date End Date Nikki Alcantar MD [address] [place] [address] PCP - General 06/26/05 03/04/17 Michelle Norris MD [address] [place], [place] [phone] PCP - General Internal Medicine 03/05/17 03/16/21 [place] [address] PCP - General Internal Medicine 03/17/21 05/04/21 Michelle Norris MD [address] [place] [address] PCP - General Internal Medicine 05/05/21 09/13/22 Rosetta Diamond MD [address] [place] [address] PCP - General Internal Medicine 09/14/22 documented as of this encounter
--- OUTSIDE RECORDS SUMMARY | 2024-12-04 11:06 | XMS_ITS | Encounter Summary ---
Author Organization [facility] Address [address] [place] [address] Care Team Providers Care Millinery Copyist Name Role Phone Nikki Alcantar MD Primary Care Provider [phone] Michelle Norris MD Primary Care Provider Unavail [facility] Primary Care Provider [facility] Michelle Norris MD Primary Care Provider Unavail [facility] Rosetta Diamond MD Primary Care Provider + Encounter Details Date Type Department Care Team Description 07/05/2012 Hospital Medical Records [address] [place] [phone] Rod Mccoy MD Social History Tobacco Use [...] on filedocumented in this encounter Care Teams Millinery Copyist Relationship Specialty Start Date End Date Nikki Alcantar MD [address] [place] [address] PCP - General 06/26/05 03/04/17 Michelle Norris MD [address] [place] [phone] PCP - General Internal Medicine 03/05/17 03/16/21 [facility], Pcp [address] [place] [phone] PCP - General Internal Medicine 03/17/21 05/04/21 Michelle Norris MD [address] [place] [phone] PCP - General Internal Medicine 05/05/21 09/13/22 Rosetta Diamond MD [address] [place] [phone] PCP - General Internal Medicine 09/14/22 documented as of this encounter
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
--- OUTSIDE RECORDS SUMMARY | 2024-12-04 11:06 | XMS_ITS | Encounter Summary ---
Author Organization [facility] Address [address] [place] [address] Care Team Providers Care Livestock Speculator Name Role Phone Nikki Alcantar MD Primary Care Provider [phone] Michelle Norris MD Primary Care Provider Unavail [facility] Primary Care Provider [facility] Michelle Norris MD Primary Care Provider Unavail [facility] Rosetta Diamond MD Primary Care Provider + Encounter Details Date Type Department Care Team Description 05/17/2012 Hospital Medical Records [address] [place] [id number] Miles Shah MD Social History Tobacco Use [...] on filedocumented in this encounter Care Teams Livestock Speculator Relationship Specialty Start Date End Date Nikki Alcantar MD [address] [place] [phone] PCP - General 06/26/05 03/04/17 Michelle Norris MD [address] [place] [id number] PCP - General Internal Medicine 03/05/17 03/16/21 [facility] [address] [place] [address] PCP - General Internal Medicine 03/17/21 05/04/21 Michelle Norris MD [address] [place] [phone] PCP - General Internal Medicine 05/05/21 09/13/22 Rosetta Diamond MD [address] [place] [phone] PCP - General Internal Medicine 09/14/22 documented as of this encounter
--- OUTSIDE RECORDS SUMMARY | 2024-12-04 11:06 | XMS_ITS | Encounter Summary ---
Author Organization [facility] Address [address] [place] [address] Care Team Providers Care Rubber Goods Tester Water Name Role Phone Nikki Alcantar MD Primary Care Provider [phone] Michelle Norris MD Primary Care Provider Unavail [facility] Primary Care Provider [facility] Michelle Norris MD Primary Care Provider Unavail [facility] Rosetta Diamond MD Primary Care Provider + Encounter Details Date Type Department Care Team Description 10/15/2012 Night Triage Doc Medical Records [address] [place] [id number] Abstract, Provider Social History Tobacco Use Types [...] filedocumented in this encounter Care Teams Rubber Goods Tester Water Relationship Specialty Start Date End Date Nikki Alcantar MD [address] [place] [phone] PCP - General 06/26/05 03/04/17 Michelle Norris MD [address] [place] [address] PCP - General Internal Medicine 03/05/17 03/16/21 [facility], Pcp [address] [place] [address] PCP - General Internal Medicine 03/17/21 05/04/21 Michelle Norris MD [address] [place], [place] [id number] PCP - General Internal Medicine 05/05/21 09/13/22 Rosetta Diamond MD [address] [place] [address] PCP - General Internal Medicine 09/14/22 documented as of this encounter
--- OUTSIDE RECORDS SUMMARY | 2024-12-04 11:06 | XMS_ITS | Encounter Summary ---
Author Organization [facility] Address [address] [place] [address] Care Team Providers Care Title Abstractor Name Role Phone Nikki Alcantar MD Primary Care Provider [phone] Michelle Norris MD Primary Care Provider Unavail able [facility] Primary Care Provider [facility] Michelle Norris MD Primary Care Provider Unavail [facility] Rosetta Diamond MD Primary Care Provider + Encounter Details Date Type Department Care Team Description 01/20/2009 Hospital Medical Records [address] [place] [address] Bandar Ryan [address] [facility] [address] [place] [address] Social History Tobacco Use Types Packs/Day Years [...] on filedocumented in this encounter Care Teams Title Abstractor Relationship Specialty Start Date End Date Nikki Alcantar MD [address] [place] [address] 60324 PCP - General 06/26/05 03/04/17 Michelle Norris MD [address] [place] [address] 75994 PCP - General Internal Medicine 03/05/17 03/16/21 [facility], Pcp [address] [place] [address] 86882 PCP - General Internal Medicine 03/17/21 05/04/21 Michelle Norris MD [address] [place] [address] 32475 PCP - General Internal Medicine 05/05/21 09/13/22 Rosetta Diamond MD [address] [place] [address] 01020 PCP - General Internal Medicine 09/14/22 documented as of this encounter
--- OUTSIDE RECORDS SUMMARY | 2024-12-04 11:06 | XMS_ITS | Encounter Summary ---
Author Organization [facility] Address [address] [place] [address] Care Team Providers Care Religious Education Coordinator Name Role Phone Nikki Alcantar MD Primary Care Provider [phone] Michelle Norris MD Primary Care Provider Unavail [facility] Primary Care Provider [facility] Michelle Norris MD Primary Care Provider Unavail [facility] Rosetta Diamond MD Primary Care Provider + Encounter Details Date Type Department Care Team Description 11/20/2015 Hospital Medical Records [address] [place] [address] Sourav Lucas Social History Tobacco Use Types [...] on filedocumented in this encounter Care Teams Religious Education Coordinator Relationship Specialty Start Date End Date Nikki Alcantar MD [address] [place] [address] 17184 PCP - General 06/26/05 03/04/17 Michelle Norris MD [address] [place] [address] PCP - General Internal Medicine 03/05/17 03/16/21 [facility], Pcp [address] [place] [address] PCP - General Internal Medicine 03/17/21 05/04/21 Michelle Norris MD [address] [place] [address] [place] [address] PCP - General Internal Medicine 05/05/21 09/13/22 Rosetta Diamond MD [address] [place], [place] [phone] PCP - General Internal Medicine 09/14/22 documented as of this encounter
--- OUTSIDE RECORDS SUMMARY | 2024-12-04 11:06 | XMS_ITS | Encounter Summary ---
Author Organization [facility] Address [address] [place] [address] Care Team Providers Care Abap Developer Name Role Phone iNkki Alcantar MD Primary Care Provider [phone] Michelle Norris MD Primary Care Provider Unavail [facility] Primary Care Provider [facility] Michelle Norris MD Primary Care Provider Unavail able Rosetta Diamond MD Primary Care Provider + Encounter Details Date Type Department Care Team Description 12/20/2007 [facility] Medical Records [address] [place] [address] 10867 Abstract, Provider Social History Tobacco Use Types Packs/Day Years Used Date Smoking Tobacco: Never Alcohol Use Standard Drinks/Week Comments [...] Procedure Name Priority Date/Time Associated Diagnosis Comments OUTSIDE EKG Routine 11/22/2007 documented in this encounter Results * OUTSIDE EKG (11/22/2007) 11/22/2007 CARDIOLOGY documented in this encounter Visit Diagnoses Not on filedocumented in this encounter Care Teams Abap Developer Relationship Specialty Start Date End Date Nikki Alcantar MD [address] [place] [address]20 PCP - General 06/26/05 03/04/17 Michelle Norris MD [address] [place] [address] 20155 PCP - General Internal Medicine 03/05/17 03/16/21 [facility], [address] [address] PCP - General Internal Medicine 03/17/21 05/04/21 Michelle Norris MD [address] [place] [address] 10765 PCP - General Internal Medicine 05/05/21 09/13/22 Rosetta Diamond MD [address] [place] [address] 63411 PCP - General Internal Medicine 09/14/22 documented as of this encounter
--- OUTSIDE RECORDS SUMMARY | 2024-12-04 11:06 | XMS_ITS | Encounter Summary ---
Author Organization [facility] Address [address] [place] [address] Care Team Providers Care Certified Personal Chef Name Role Phone Nikki Alcantar MD Primary Care Provider [phone] Michelle Norris MD Primary Care Provider Unavail [facility] Primary Care Provider [facility] Michelle Norris MD Primary Care Provider Unavail [facility] Rosetta Diamond MD Primary Care Provider + Encounter Details Date Type Department Care Team Description 03/07/2012 Hospital Medical Records [address] [place] [address] Marlen Grande Social History Tobacco Use Types [...] on filedocumented in this encounter Care Teams Certified Personal Chef Relationship Specialty Start Date End Date Nikki Alcantar MD [address] [place] [address] 78123 PCP - General 06/26/05 03/04/17 Michelle Norris MD [address] [place] [address] 68132 PCP - General Internal Medicine 03/05/17 03/16/21 [facility], Pcp [address] [place] [address] 10897 PCP - General Internal Medicine 03/17/21 05/04/21 Michelle Norris MD [address] [place] [address] 20083 PCP - General Internal Medicine 05/05/21 09/13/22 Rosetta Diamond MD [address] [place] [address]20 PCP - General Internal Medicine 09/14/22 documented as of this encounter
--- OUTSIDE RECORDS SUMMARY | 2024-12-04 11:06 | XMS_ITS | Encounter Summary ---
Author Organization [facility] Address [address] [place] [address] Care Team Providers Care New Accounts Banking Representative Name Role Phone Nikki Alcantar MD Primary Care Provider [phone] Michelle Norris MD Primary Care Provider Unavail [facility] Primary Care Provider [facility] Michelle Norris MD Primary Care Provider Unavail [facility] Rosetta Diamond MD Primary Care Provider + Encounter Details Date Type Department Care Team Description 01/01/2016 Hospital Medical Records [address] [place] [address] Social History Tobacco Use Types Packs/Day Years [...] on filedocumented in this encounter Care Teams New Accounts Banking Representative Relationship Specialty Start Date End Date Nkiki Alcantar MD [address] [place] [address] 70696 PCP - General 06/26/05 03/04/17 Michelle Norris MD [address] [place] [address] 34460 PCP - General Internal Medicine 03/05/17 03/16/21 [facility], Pcp [address] [place] [address] 34387 PCP - General Internal Medicine 03/17/21 05/04/21 Michelle Norris MD [address] [place] [address] 64792 PCP - General Internal Medicine 05/05/21 09/13/22 Rosetta Diamond MD [address] [place] [address] PCP - General Internal Medicine 09/14/22 documented as of this encounter
--- OUTSIDE RECORDS SUMMARY | 2024-12-04 11:06 | XMS_ITS | Encounter Summary ---
Author Organization [facility] Address [address] [place] [address] Care Team Providers Care Airplane Coverer Name Role Phone Nikki Alcantar MD Primary Care Provider [phone] Michelle Norris MD Primary Care Provider Unavail [facility] Primary Care Provider [facility] Michelle Norris MD Primary Care Provider Unavail [facility] Rosetta Diamond MD Primary Care Provider + Encounter Details Date Type Department Care Team Description 07/18/2012 Heavy Lift Rigger Report Medical Records [address] [place] [address] Julio Paredes MD Social History Tobacco Use [...] on filedocumented in this encounter Care Teams Airplane Coverer Relationship Specialty Start Date End Date Nikki Alcantar MD [address] [place] [address] 21245 PCP - General 06/26/05 03/04/17 Michelle Norris MD [address] [place] [address] PCP - General Internal Medicine 03/05/17 03/16/21 [facility], Pcp [address] [place] [address] 10585 PCP - General Internal Medicine 03/17/21 05/04/21 Michelle Norris MD [address] [place] [address] [place] [address] PCP - General Internal Medicine 05/05/21 09/13/22 Rosetta Diamond MD [address] [place], [place] [phone] PCP - General Internal Medicine 09/14/22 documented as of this encounter
--- OUTSIDE RECORDS SUMMARY | 2024-12-04 11:06 | XMS_ITS | Encounter Summary ---
Author Organization [facility] Address [address] [place] [address] Care Team Providers Care Biofuels Operations Manager Name Role Phone Nikki Alcantar MD Primary Care Provider [phone] Michelle Norris MD Primary Care Provider Unavail [facility] Primary Care Provider [facility] Michelle Norris MD Primary Care Provider Unavail [facility] Rosetta Diamond MD Primary Care Provider + Encounter Details Date Type Department Care Team Description 07/31/2012 Manager Salt Report Medical Records [address] [place] [address] Julio Paredes MD Social History Tobacco Use [...] on filedocumented in this encounter Care Teams Biofuels Operations Manager Relationship Specialty Start Date End Date Nikki Alcantar MD [address] [place] [address] 55934 PCP - General 06/26/05 03/04/17 Michelle Norris MD [address] [place] [address] PCP - General Internal Medicine 03/05/17 03/16/21 [facility], Pcp [address] [place] [address] PCP - General Internal Medicine 03/17/21 05/04/21 Michelle Norris MD [address] [place] [address] [place] [address] PCP - General Internal Medicine 05/05/21 09/13/22 Rosetta Diamond MD [address] [place], [place] [phone] PCP - General Internal Medicine 09/14/22 documented as of this encounter
--- OUTSIDE RECORDS SUMMARY | 2024-12-04 11:06 | XMS_ITS | Encounter Summary ---
Author Organization [facility] Address [address] [place] [address] Care Team Providers Care Afterschool Babysitter Name Role Phone Nikki Alcantar MD Primary Care Provider [phone] Michelle Norris MD Primary Care Provider Unavail [facility] Primary Care Provider [facility] Michelle Norris MD Primary Care Provider Unavail [facility] Rosetta Diamond MD Primary Care Provider + Encounter Details Date Type Department Care Team Description 12/22/2015 Hospital Medical Records [address] [place] [address] Marlen Grande Social History Tobacco Use Types [...] on filedocumented in this encounter Care Teams Afterschool Babysitter Relationship Specialty Start Date End Date Nikki Alcantar MD [address] [place] [address] 93930 PCP - General 06/26/05 03/04/17 Michelle Norris MD [address] [place] [address] 77324 PCP - General Internal Medicine 03/05/17 03/16/21 [facility], Pcp [address] [place] [address] 32648 PCP - General Internal Medicine 03/17/21 05/04/21 Michelle Norris MD [address] [place] [address] 26132 PCP - General Internal Medicine 05/05/21 09/13/22 Rosetta Diamond MD [address] [place] [address] 01020 PCP - General Internal Medicine 09/14/22 documented as of this encounter
--- OUTSIDE RECORDS SUMMARY | 2024-12-04 11:06 | XMS_ITS | Encounter Summary ---
Author Organization [facility] Address [address] [place] [address] Care Team Providers Care Torts Law Professor Name Role Phone Nikki Alcantar MD Primary Care Provider [phone] Michelle Norris MD Primary Care Provider Unavail [facility] Primary Care Provider [facility] Michelle Norris MD Primary Care Provider Unavail [facility] Rosetta Diamond MD Primary Care Provider + Encounter Details Date Type Department Care Team Description 07/05/2012 Transfer Records Medical Records [address] [place] [phone] Abstract, Provider Social History Tobacco Use Types [...] on filedocumented in this encounter Care Teams Torts Law Professor Relationship Specialty Start Date End Date Nikki Alcantar MD [address] [place] [address] 48772 PCP - General 06/26/05 03/04/17 Michelle Norris MD [address] [place] [address] PCP - General Internal Medicine 03/05/17 03/16/21 [facility], Pcp [address] [place] [address] PCP - General Internal Medicine 03/17/21 05/04/21 Michelle Norris MD [address] [place] [address] 33199 PCP - General Internal Medicine 05/05/21 09/13/22 Rosetta Diamond MD [address] [place], [place] [phone] PCP - General Internal Medicine 09/14/22 documented as of this encounter
--- OUTSIDE RECORDS SUMMARY | 2024-12-04 11:07 | XMS_ITS | Encounter Summary ---
Author Organization [facility] Address [address] [place] [address] Care Team Providers Care Candy Packer Name Role Phone Nikki Alcantar MD Primary Care Provider [phone] Michelle Norris MD Primary Care Provider Unavail [facility] Primary Care Provider [facility] Michelle Norris MD Primary Care Provider Unavail [facility] Rosetta Diamond MD Primary Care Provider + Encounter Details Date Type Department Care Team Description 11/26/2007 Hospital Medical Records [address] [place] [phone] Alverto Hernandez Social History Tobacco Use Types Packs/Day Years [...] on filedocumented in this encounter Care Teams Candy Packer Relationship Specialty Start Date End Date Nikki Alcantar MD [address] [place] [address] 92539 PCP - General 06/26/05 03/04/17 Michelle Norris MD [address] [place] [address] 50877 PCP - General Internal Medicine 03/05/17 03/16/21 [facility], Pcp [address] [place] [address] 73294 PCP - General Internal Medicine 03/17/21 05/04/21 Michelle Norris MD [address] [place] [address] 56145 PCP - General Internal Medicine 05/05/21 09/13/22 Rosetta Diamond MD [address] [place] [address] 01020 PCP - General Internal Medicine 09/14/22 documented as of this encounter
--- OUTSIDE RECORDS SUMMARY | 2024-12-04 11:07 | XMS_ITS | Encounter Summary ---
Author Organization [facility] Address [address] [place] [address] Care Team Providers Care Ctrs Name Role Phone Nikki Alcantar MD Primary Care Provider [phone] Michelle Norris MD Primary Care Provider Unavail [facility] Primary Care Provider [facility] Michelle Norris MD Primary Care Provider Unavail [facility] Rosetta Diamond MD Primary Care Provider + Encounter Details Date Type Department Care Team Description 10/24/2007 Hospital Medical Records [address] [place] [address]69 [facility] Social History Tobacco Use Types Packs/Day Years [...] on filedocumented in this encounter Care Teams Ctrs Relationship Specialty Start Date End Date Nikki Alcantar MD [address] [place] [address] 30818 PCP - General 06/26/05 03/04/17 Michelle Norris MD [address] [place] [address] 45128 PCP - General Internal Medicine 03/05/17 03/16/21 [facility], Pcp [address] [place] [address] 43366 PCP - General Internal Medicine 03/17/21 05/04/21 Michelle Norris MD [address] [place] [address] 58674 PCP - General Internal Medicine 05/05/21 09/13/22 Rosetta Diamond MD [address] [place] [address] 01020 PCP - General Internal Medicine 09/14/22 documented as of this encounter
--- OUTSIDE RECORDS SUMMARY | 2024-12-04 11:07 | XMS_ITS | Encounter Summary ---
Author Organization [facility] Address [address] [place] [address] Care Team Providers Care Beef Cattle Farm Manager Name Role Phone Michelle Norris MD Primary Care Provider Unavail [facility], Pcp [facility] Michelle Norris MD Primary Care Provider Unavail able Rosetta Diamond MD Primary Care Provider + Encounter Details Date Type Department Care Team Description 04/12/2018 Sign Letterer Report Medical Records [address] [place] [address] [phone] Abstract, Provider Social History Tobacco Use Types [...] on filedocumented in this encounter Care Teams Beef Cattle Farm Manager Relationship Specialty Start Date End Date Michelle Norris MD PCP - General Internal Medicine 03/05/17 03/16/21 [facility], Pcp PCP - General Internal Medicine 03/17/21 05/04/21 Michelle Norris MD PCP - General Internal Medicine 05/05/21 09/13/22 Rosetta Diamond MD [address] [place] [address] 01020 PCP - General Internal Medicine 09/14/22 documented as of this encounter
--- OUTSIDE RECORDS SUMMARY | 2024-12-04 11:07 | XMS_ITS | Encounter Summary ---
Author Organization [facility] Address [address] [place] [address] Care Team Providers Care Retail Marketing Manager Name Role Phone Michelle Norris MD Primary Care Provider Unavail [facility], Pcp [facility] Michelle Norris MD Primary Care Provider Unavail able Rosetta Diamond MD Primary Care Provider + Encounter Details Date Type Department Care Team Description 12/10/2017 Assistant Store Manager Operations Report Medical Records [address] [place] [address] Tony Groves MD Social History Tobacco Use Types Packs/Day [...] on filedocumented in this encounter Care Teams Retail Marketing Manager Relationship Specialty Start Date End Date Michelle Norris MD PCP - General Internal Medicine 03/05/17 03/16/21 [facility], Pcp PCP - General Internal Medicine 03/17/21 05/04/21 Michelle Norris MD PCP - General Internal Medicine 05/05/21 09/13/22 Rosetta Diamond MD [address] [place] [address] PCP - General Internal Medicine 09/14/22 documented as of this encounter
--- OUTSIDE RECORDS SUMMARY | 2024-12-04 11:07 | XMS_ITS | Encounter Summary ---
Author Organization [facility] Address [address] [place] [address] Care Team Providers Care Aluminum Pourer Name Role Phone Michelle Norris MD Primary Care Provider [facility]ail [facility], Pcp [facility] Michelle Norris MD Primary Care Provider Unavail able Rosetta Diamond MD Primary Care Provider + Encounter Details Date Type Department Care Team Description 05/08/2018 Hospital Medical Records [address] [place] [address] 39237 Abstract, Provider Social History Tobacco Use Types [...] on filedocumented in this encounter Care Teams Aluminum Pourer Relationship Specialty Start Date End Date Michelle Norris MD PCP - General Internal Medicine 03/05/17 03/16/21 [facility], Pcp PCP - General Internal Medicine 03/17/21 05/04/21 Michelle Norris MD PCP - General Internal Medicine 05/05/21 09/13/22 Rosetta Diamond MD [address] [place] [address] 83003 PCP - General Internal Medicine 09/14/22 documented as of this encounter
--- OUTSIDE RECORDS SUMMARY | 2024-12-04 11:07 | XMS_ITS | Encounter Summary ---
Author Organization [facility] Address [address] [place] [address] Care Team Providers Care Oil Well Driller Name Role Phone Michelle Norris MD Primary Care Provider Unavail [facility], Pcp Primary Care [facility] Michelle Norris MD Primary Care Provider Unavail able Rosetta Diamond MD Primary Care Provider + Encounter Details Date Type Department Care Team Description 01/29/2018 Release of Information Medical Records [address] [place] [address]239 Abstract, Provider Social History Tobacco Use Types [...] on filedocumented in this encounter Care Teams Oil Well Driller Relationship Specialty Start Date End Date Michelle Norris MD PCP - General Internal Medicine 03/05/17 03/16/21 [facility], Pcp PCP - General Internal Medicine 03/17/21 05/04/21 Michelle Norris MD PCP - General Internal Medicine 05/05/21 09/13/22 Rosetta Diamond MD [address] [place] [address] 30602 PCP - General Internal Medicine 09/14/22 documented as of this encounter
--- OUTSIDE RECORDS SUMMARY | 2024-12-04 11:07 | XMS_ITS | Encounter Summary ---
Author Organization [facility] Address [address] [place] [address] Care Team Providers Care Machine Carton Marker Name Role Phone Michelle Norris MD Primary Care Provider Unavail able [facility] Michelle Lagos MD Primary Care Provider Unavail able Rosetta Diamond MD Primary Care Provider + Reason for Visit * Reason Onset Date Comments Call From Hospital 06/18/2018 Encounter Details Date Type Department Care Team Description 06/18/2018 Telephone Adult Medicine [address] [phone] Michelle Norris MD Call From Hospital Social [...] callers name? Aurea Callers relationship to patient? [facility] health [facility] If person calling is not the patient themselves, is there a verbal release in FYI or permanent comments for this person: NO Reason for call back: FYI, wants to inform Dr Griffiths that patient [facility]2018. Caller offered to speak with the nurse for assistance: YES Response: Patient offered to speak with nurse for assistance and patient agreed. Message forwarded to nurse. documented in this encounter Plan of Treatment Not on file documented as of this encounter Visit Diagnoses Not on filedocumented in this encounter Care Teams Machine Carton Marker Relationship Specialty Start Date End Date Michelle Norris MD PCP - General Internal Medicine 03/05/17 03/16/21 [facility] PCP - General Internal Medicine 03/17/21 05/04/21 Michelle Norris MD PCP - General Internal Medicine 05/05/21 09/13/22 Rosetta Diamond MD [address] [place] [address] 97921 PCP - General Internal Medicine 09/14/22 documented as of this encounter
--- OUTSIDE RECORDS SUMMARY | 2024-12-04 11:07 | XMS_ITS | Encounter Summary ---
Author Organization [facility] Address [address] [place] [address] Care Team Providers Care Judge Name Role Phone Michelle Norris MD Primary Care Provider Unavail able [facility], Pcp Primary Care Provider [facility] Michelle Lagos MD Primary Care Provider Unavail able Rosetta Diamond MD Primary Care Provider + Reason for Visit * Reason Onset Date Comments Phlebotomy Specialist Feedback 07/30/2018 neurologist Encounter Details Date Type Department Care Team Description 07/30/2018 Telephone Adult Medicine [address] [address] Michelle Norris MD Phlebotomy Specialist Feedback (neurologist) Social History Tobacco Use Types Packs/Day Years [...] encounter Miscellaneous Notes * Telephone Encounter - Anabel Masterson - 07/30/2018 2:33 PM EDT I will refax copy to those fax numbers below thank you. * Telephone Encounter - Dilma Duran - 07/30/2018 2:22 PM EDT Please see referrals tab , GOLDY not received should have been faxed to [phone] or [phone] * Telephone Encounter - Anabel Masterson - 07/30/2018 2:08 PM EDT Patient wanted to make sure we received the goldy for her referral to the neurologist. She filled outa new one on 07/26/18, it was sent to [phone], can you let her know if she needs to do anything to get an appointment in Neurology. Thank you, Anabel documented in this encounter Plan of Treatment Not on file documented as of this encounter Visit Diagnoses Not on filedocumented in this encounter Care Teams Judge Relationship Specialty Start Date End Date Michelle Norris MD PCP - General Internal Medicine 03/05/17 03/16/21 [facility], Pcp PCP - General Internal Medicine 03/17/21 05/04/21 Michelle Norris MD PCP - General Internal Medicine 05/05/21 09/13/22 Rosetta Diamond MD [address] [place] [address] PCP - General Internal Medicine 09/14/22 documented as of this encounter
--- OUTSIDE RECORDS SUMMARY | 2024-12-04 11:07 | XMS_ITS | Encounter Summary ---
Author Organization [facility] Address [address] [place] [address] Care Team Providers Care Fowl Blood Tester Name Role Phone Nikki Alcantar MD Primary Care Provider [phone] Michelle Norris MD Primary Care Provider Unavail [facility], [facility] Primary Care Provider [facility] Michelle Norris MD Primary Care Provider Unavail [facility] Rosetta Diamond MD Primary Care Provider + Encounter Details Date Type Department Care Team Description 10/26/2014 Hospital Medical Records [address] [place] [address] Social History Tobacco Use Types Packs/Day [...] on filedocumented in this encounter Care Teams Fowl Blood Tester Relationship Specialty Start Date End Date Nikki Alcantar MD [address] [place] [address] PCP - General 06/26/05 03/04/17 Michelle Norris MD [address] [place] [address] PCP - General Internal Medicine 03/05/17 03/16/21 [facility], Pcp [address] [place] [address] PCP - General Internal Medicine 03/17/21 05/04/21 Michelle Norris MD [address] [place] [address] PCP - General Internal Medicine 05/05/21 09/13/22 Rosetta Diamond MD [address] [place] [address] KARTIK CHEN [address] PCP - General Internal Medicine 09/14/22 documented as of this encounter
--- OUTSIDE RECORDS SUMMARY | 2024-12-04 11:07 | XMS_ITS | Encounter Summary ---
Author Organization [facility] Address [address] [place] [address] Care Team Providers Care Phone Triage Specialist Name Role Phone Michelle Norris MD Primary Care Provider Unavail able [facility] Pcp [facility] Michelle Norris MD Primary Care Provider Unavail able Rosetta Diamond MD Primary Care Provider + Encounter Details Date Type Department Care Team Description 01/10/2018 Glaze Handler Report Medical Records [address] [place] [address] Salma Mahmood, MAKENZIE Social History Tobacco Use [...] on filedocumented in this encounter Care Teams Phone Triage Specialist Relationship Specialty Start Date End Date Michelle Norris MD PCP - General Internal Medicine 03/05/17 03/16/21 [facility], Pcp PCP - General Internal Medicine 03/17/21 05/04/21 Michelle Norris MD PCP - General Internal Medicine 05/05/21 09/13/22 Rosetta Diamond MD [address] [place] [address] PCP - General Internal Medicine 09/14/22 documented as of this encounter
--- OUTSIDE RECORDS SUMMARY | 2024-12-04 11:07 | XMS_ITS | Encounter Summary ---
Author Organization [facility] Address [address] [place] [address] Care Team Providers Care Analytical Statistician Name Role Phone Nikki Alcantar MD Primary Care Provider [phone] Michelle Norris MD Primary Care Provider Unavail [facility] Primary Care Provider [facility] Michelle Norris MD Primary Care Provider [facility] Rosetta Diamond MD Primary Care Provider + Encounter Details Date Type Department Care Team Description 07/16/2014 Transfer Records Medical Records [address] [place] [address] Social History Tobacco Use Types Packs/Day Years [...] on filedocumented in this encounter Care Teams Analytical Statistician Relationship Specialty Start Date End Date Nikki Alcantar MD [address] [place] [address] PCP - General 06/26/05 03/04/17 Michelle Norris MD [address] [place] [address] PCP - General Internal Medicine 03/05/17 03/16/21 [facility], Pcp [address] [place] [address] PCP - General Internal Medicine 03/17/21 05/04/21 Michelle Norris MD [address] [place] [address] [place] [address] PCP - General Internal Medicine 05/05/21 09/13/22 Rosetta Diamond MD [address] [place], [place] [phone] PCP - General Internal Medicine 09/14/22 documented as of this encounter
--- OUTSIDE RECORDS SUMMARY | 2024-12-04 11:07 | XMS_ITS | Encounter Summary ---
Author Organization [facility] Address [address] [place] [address] Care Team Providers Care Transportation Maintenance Specialist Name Role Phone Michelle Norris MD Primary Care Provider Unavail able [facility], Pcp [facility] Michelle Norris MD Primary Care Provider Unavail able Rosetta Diamond MD Primary Care Provider + Encounter Details Date Type Department Care Team Description 04/15/2018 Hospital Medical Records [address] [place] [address] Social History Tobacco Use Types Packs/Day Years [...] on filedocumented in this encounter Care Teams Transportation Maintenance Specialist Relationship Specialty Start Date End Date Michelle Norris MD PCP - General Internal Medicine 03/05/17 03/16/21 [facility], Pcp PCP - General Internal Medicine 03/17/21 05/04/21 Michelle Norris MD PCP - General Internal Medicine 05/05/21 09/13/22 Rosetta Diamond MD [address] [place] [address] PCP - General Internal Medicine 09/14/22 documented as of this encounter
--- OUTSIDE RECORDS SUMMARY | 2024-12-04 11:07 | XMS_ITS | Encounter Summary ---
Author Organization [facility] Address [address] [place] [address] Care Team Providers Care Greenbelt Name Role Phone Michelle Norris MD Primary Care Provider Unavail able [facility], Pcp [facility] Michelle Norris MD Primary Care Provider Unavail able Rosetta Diamond MD Primary Care Provider + Encounter Details Date Type Department Care Team Description 04/13/2018 Hospital Medical Records [address] [place] [address] Social History Tobacco Use Types Packs/Day Years [...] on filedocumented in this encounter Care Teams Greenbelt Relationship Specialty Start Date End Date Michelle Norris MD PCP - General Internal Medicine 03/05/17 03/16/21 [facility], Pcp PCP - General Internal Medicine 03/17/21 05/04/21 Michelle Norris MD PCP - General Internal Medicine 05/05/21 09/13/22 Rosetta Diamond MD [address] [place] [address] PCP - General Internal Medicine 09/14/22 documented as of this encounter
--- OUTSIDE RECORDS SUMMARY | 2024-12-04 11:08 | XMS_ITS | Encounter Summary ---
Author Organization [facility] Address [address] [place] [address] Care Team Providers Care Housekeeping Coordinator Name Role Phone Nikki Alcantar MD Primary Care Provider [phone] Michelle Norris MD Primary Care Provider Unavail able [facility] Michelle Norris MD Primary Care Provider Unavail able Rosetta Diamond MD Primary Care Provider + Reason for Visit * Reason Onset Date Comments Behavior 05/27/2015 Encounter Details Date Type Department Care Team Description 05/27/2015 Telephone Adult Medicine [address] [phone] Nikki Alcantar MD [address] [place] [address] [phone] Behavior Social History Tobacco Use Types Packs/Day [...] - 05/27/2015 1:09 PM EDT PAT FROM [facility] IS CALLING TO LET DR ALCANTAR KNOW THAT PATIENT HAS BEEN ADMITTED. documented in this encounter Plan of Treatment Not on file documented as of this encounter Visit Diagnoses Not on filedocumented in this encounter Care Teams Housekeeping Coordinator Relationship Specialty Start Date End Date Nikki Alcantar MD [address] [place] [address] PCP - General 06/26/05 03/04/17 Michelle Norris MD [address] [place] [address] PCP - General Internal Medicine 03/05/17 03/16/21 [place] [address] PCP - General Internal Medicine 03/17/21 05/04/21 Michelle Norris MD [address] [place] [address] PCP - General Internal Medicine 05/05/21 09/13/22 Rosetta Diamond MD [address] [place], [place] [phone] PCP - General Internal Medicine 09/14/22 documented as of this encounter
--- OUTSIDE RECORDS SUMMARY | 2024-12-04 11:08 | XMS_ITS | Encounter Summary ---
Author Organization [facility] Address [address] [place] [address] Care Team Providers Care Paper Hanger Name Role Phone Nikki Alcantar MD Primary Care Provider [phone] Michelle Norris MD Primary Care Provider Unavail [facility] Primary Care Provider [facility] Michelle Norris MD Primary Care Provider Unavail [facility] Rosetta Diamond MD Primary Care Provider + Encounter Details Date Type Department Care Team Description 02/11/2015 Hospital Medical Records [address] [place] [address] Social History Tobacco Use Types Packs/Day Years [...] on filedocumented in this encounter Care Teams Paper Hanger Relationship Specialty Start Date End Date Nikki Alcantar MD [address] [place] [address] PCP - General 06/26/05 03/04/17 Michelle Norris MD [address] [place] [address] PCP - General Internal Medicine 03/05/17 03/16/21 Counts Include [facility], Pcp [address] [place] [address] PCP - General Internal Medicine 03/17/21 05/04/21 Michelle Norris MD [address] [place] [address] PCP - General Internal Medicine 05/05/21 09/13/22 Rosetta Diamond MD [address] [place] [address] KARTIK CHEN [address] PCP - General Internal Medicine 09/14/22 documented as of this encounter
--- OUTSIDE RECORDS SUMMARY | 2024-12-04 11:08 | XMS_ITS | Encounter Summary ---
Author Organization [facility] Address [address] [place] [address] Care Team Providers Care Screw Machine Operator Name Role Phone Michelle Norris MD Primary Care Provider Unavail able [facility] Michelle Lagos MD Primary Care Provider Unavail able Rosetta Diamond MD Primary Care Provider + Reason for Visit * Reason Onset Date Comments VNA Call 12/10/2018 Encounter Details Date Type Department Care Team Description 12/10/2018 Telephone Adult Medicine [address] [address] Michelle Norris MD VNA Call Social History [...] Saenz R.N. 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
--- OUTSIDE RECORDS SUMMARY | 2024-12-04 11:08 | XMS_ITS | Encounter Summary ---
Author Organization [facility] Address [address] [place] [address] Care Team Providers Care Lacquer Shader Name Role Phone Nikki Alcantar MD Primary Care Provider [phone] Michelle Norris MD Primary Care Provider Unavail able [facility] Primary Care Provider [facility] Michelle Norris MD Primary Care Provider Unavail [facility] Rosetta Diamond MD Primary Care Provider + Encounter Details Date Type Department Care Team Description 09/12/2011 Hospital Medical Records [address] [place] [address] Bandar Ryan [address] [facility] [address] [place] [address] Social History Tobacco Use Types Packs/Day Years [...] on filedocumented in this encounter Care Teams Lacquer Shader Relationship Specialty Start Date End Date Nikki Alcantar MD [address] [place] [address] PCP - General 06/26/05 03/04/17 Michelle Norris MD [address] [place] [address] PCP - General Internal Medicine 03/05/17 03/16/21 [facility], Pcp [address] [place] [address] PCP - General Internal Medicine 03/17/21 05/04/21 Michelle Norris MD [address] [place] [address] PCP - General Internal Medicine 05/05/21 09/13/22 Rosetta Diamond MD [address] [place] [address] PCP - General Internal Medicine 09/14/22 documented as of this encounter
--- OUTSIDE RECORDS SUMMARY | 2024-12-04 11:08 | XMS_ITS | Encounter Summary ---
Author Organization [facility] Address [address] [place] [address] Care Team Providers Care Exchange Mechanic Name Role Phone Michelle Norris MD Primary Care Provider Unavail able [facility] Care [facility] Michelle Lagos MD Primary Care Provider Unavail able Rosetta Diamond MD Primary Care Provider + Reason for Visit * Reason Comments E-prescribe Rx Request Encounter Details Date Type Department Care Team Description 08/11/2018 Refill OBGYN - [place] [address] [place] [address] Chel Stapleton CNM [address] [place], [place] [phone] E-prescribe Rx Request Social History Tobacco Use [...] EDT WHEN WAS THE PATIENTS LAST ANNUAL WELDER MANUFACTURE EXAM? 07/19/17 Does patient have an upcoming [...] / Plan: [place] / Product Type: MEDICARE [id number] documented in this encounter Plan of Treatment Not on file documented as of this encounter Visit Diagnoses Diagnosis Encounter for initial prescription of contraceptive pills General counseling for prescription of oral contraceptives documented in this encounter Care Teams Exchange Mechanic Relationship Specialty Start Date End Date Michelle Norris MD PCP - General Internal Medicine 03/05/17 03/16/21 [facility] PCP - General Internal Medicine 03/17/21 05/04/21 Michelle Norris MD PCP - General Internal Medicine 05/05/21 09/13/22 Rosetta Diamond MD [address] [place] [address] PCP - General Internal Medicine 09/14/22 documented as of this encounter
--- OUTSIDE RECORDS SUMMARY | 2024-12-04 11:08 | XMS_ITS | Encounter Summary ---
Author Organization [facility] Address [address] [place] [address] Care Team Providers Care Spareribs Trimmer Name Role Phone Michelle Norris MD Primary Care Provider Unavail able [facility], Pcp Primary Care Provider Unavailabl e Michelle Norris MD Primary Care Provider Unavail able Rosetta Diamond MD Primary Care Provider + Encounter Details Date Type Department Care Team Description 09/09/2018 Hospital Medical Records [address] [place] [address] Jefe Robison NP Social History Tobacco Use Types Packs/Day Years [...] on filedocumented in this encounter Care Teams Spareribs Trimmer Relationship Specialty Start Date End Date Michelle Norris MD PCP - General Internal Medicine 03/05/17 03/16/21 [facility], Pcp PCP - General Internal Medicine 03/17/21 05/04/21 Michelle Norris MD PCP - General Internal Medicine 05/05/21 09/13/22 Rosetta Diamond MD [address] [place] [address] PCP - General Internal Medicine 09/14/22 documented as of this encounter
--- OUTSIDE RECORDS SUMMARY | 2024-12-04 11:08 | XMS_ITS | Encounter Summary ---
Author Organization [facility] Address [address] [place] [address] Care Team Providers Care Optician Apprentice Name Role Phone Michelle Norris MD Primary Care Provider Unavail able [facility] Michelle Norris MD Primary Care Provider Unavail able Rosetta Diamond MD Primary Care Provider + Encounter Details Date Type Department Care Team Description 10/07/2018 Hospital Medical Records [address] [place] [address] Errol Snyder [address] [place] [address] [phone] Social History Tobacco Use Types Packs/Day Years [...] on filedocumented in this encounter Care Teams Optician Apprentice Relationship Specialty Start Date End Date Michelle Norris MD PCP - General Internal Medicine 03/05/17 03/16/21 [facility], Pcp PCP - General Internal Medicine 03/17/21 05/04/21 Michelle Norris MD PCP - General Internal Medicine 05/05/21 09/13/22 Rosetta Diamond MD [address] [place], [place] [address] PCP - General Internal Medicine 09/14/22 documented as of this encounter
--- OUTSIDE RECORDS SUMMARY | 2024-12-04 11:08 | XMS_ITS | Encounter Summary ---
Author Organization [facility] Address [address] [place] [address] Care Team Providers Care Stonecutter Assistant Name Role Phone Nikki Alcantar MD Primary Care Provider [phone] Michelle Norris MD Primary Care Provider Unavail able [facility] Primary Care Provider [facility] Michelle Norris MD Primary Care Provider Unavail able Rosetta Diamond MD Primary Care Provider + Reason for Visit * Reason Onset Date Comments APPOINTMENT 10/26/2011 missed appointme nt w/Dr Alcantar Encounter Details Date Type Department Care Team Description 10/26/2011 Telephone Adult Medicine [address] [phone] Nikki Alcantar MD [address] [place] [address] [phone] APPOINTMENT (missed appointment w/Dr Alcantar) Social History [...] on filedocumented in this encounter Care Teams Stonecutter Assistant Relationship Specialty Start Date End Date Nikki Alcantar MD [address] [place] [address] PCP - General 06/26/05 03/04/17 Michelle Norris MD [address] [place] [address] PCP - General Internal Medicine 03/05/17 03/16/21 [place] [address] PCP - General Internal Medicine 03/17/21 05/04/21 Michelle Norris MD [address] [place] [address] PCP - General Internal Medicine 05/05/21 09/13/22 Rosetta Diamond MD [address] [place] [address] PCP - General Internal Medicine 09/14/22 documented as of this encounter
--- OUTSIDE RECORDS SUMMARY | 2024-12-04 11:08 | XMS_ITS | Encounter Summary ---
Author Organization [facility] Address [address] [place] [address] Care Team Providers Care Fly Raiser Lockstitch Name Role Phone Michelle Norris MD Primary Care Provider Unavail able [facility], Pcp [facility] Michelle Norris MD Primary Care Provider Unavail able Rosetta Diamond MD Primary Care Provider + Encounter Details Date Type Department Care Team Description 08/30/2018 Business Doc Medical Records [address] [place] [id number] Abstract, Provider Social History Tobacco Use Types [...] on filedocumented in this encounter Care Teams Fly Raiser Lockstitch Relationship Specialty Start Date End Date Michelle Norris MD PCP - General Internal Medicine 03/05/17 03/16/21 [facility], Pcp PCP - General Internal Medicine 03/17/21 05/04/21 Michelle Norris MD PCP - General Internal Medicine 05/05/21 09/13/22 Rosetta Diamond MD [address] [place] [address] PCP - General Internal Medicine 09/14/22 documented as of this encounter
--- OUTSIDE RECORDS SUMMARY | 2024-12-04 11:08 | XMS_ITS | Encounter Summary ---
Author Organization [facility] Address [address] [place] [address] Care Team Providers Care Supervisor Tank Cleaning Name Role Phone Nikki Alcantar MD Primary Care Provider [phone] Michelle Norris MD Primary Care Provider Unavail [facility] Primary Care Provider [facility] Michelle Norris MD Primary Care Provider Unavail [facility] Rosetta Diamond MD Primary Care Provider + Encounter Details Date Type Department Care Team Description 02/01/2012 Business Doc Medical Records [address] [place] [id number] Abstract, Provider Social History Tobacco Use Types [...] on filedocumented in this encounter Care Teams Supervisor Tank Cleaning Relationship Specialty Start Date End Date Nikki Alcantar MD [address] [place] [address] PCP - General 06/26/05 03/04/17 Michelle Norris MD [address] [place] [address] PCP - General Internal Medicine 03/05/17 03/16/21 [facility], Pcp [address] [place] [address] PCP - General Internal Medicine 03/17/21 05/04/21 Michelle Norris MD [address] [place] [address] PCP - General Internal Medicine 05/05/21 09/13/22 Rosetta Diamond MD [address] [place], [place] [phone] PCP - General Internal Medicine 09/14/22 documented as of this encounter
--- OUTSIDE RECORDS SUMMARY | 2024-12-04 11:08 | XMS_ITS | Encounter Summary ---
Author Organization [facility] Address [address] [place] [address] Care Team Providers Care Farrowing Manager Name Role Phone Nikki Alcantar MD Primary Care Provider [phone] Michelle Norris MD Primary Care Provider Unavail able [facility] Primary Care Provider [facility] Michelle Norris MD Primary Care Provider Unavail [facility] Rosetta Diamond MD Primary Care Provider + Encounter Details Date Type Department Care Team Description 09/15/2011 Hospital Medical Records [address] [place] [address] Jones Carmen [address] [place] [address] Social History Tobacco Use Types Packs/Day Years [...] on filedocumented in this encounter Care Teams Farrowing Manager Relationship Specialty Start Date End Date Nikki Alcantar MD [address] [place] [address] PCP - General 06/26/05 03/04/17 Michelle Norris MD [address] [place] [address] PCP - General Internal Medicine 03/05/17 03/16/21 [facility]cp [address] [place] [address] PCP - General Internal Medicine 03/17/21 05/04/21 Michelle Norris MD [address] [place] [address] PCP - General Internal Medicine 05/05/21 09/13/22 Rosetta Diamond MD [address] [place] [address] [phone] PCP - General Internal Medicine 09/14/22 documented as of this encounter
--- OUTSIDE RECORDS SUMMARY | 2024-12-04 11:08 | XMS_ITS | Encounter Summary ---
Author Organization [facility] Address [address] [place] [address] Care Team Providers Care Billing Collections Specialist Name Role Phone Nikki Alcantar MD Primary Care Provider [phone] Michelle Norris MD Primary Care Provider Unavail [facility], [facility] Primary Care Provider [facility] Michelle Norris MD Primary Care Provider Unavail [facility] Rosetta Diamond MD Primary Care Provider + Encounter Details Date Type Department Care Team Description 03/12/2015 Hospital Medical Records [address] [place] [id number] Social History Tobacco Use Types Packs/Day Years [...] on filedocumented in this encounter Care Teams Billing Collections Specialist Relationship Specialty Start Date End Date Nikki Alcantar MD [address] [place] [address] PCP - General 06/26/05 03/04/17 Michelle Norris MD [address] [place] [address] PCP - General Internal Medicine 03/05/17 03/16/21 [facility], Pcp [address] [place] [address] PCP - General Internal Medicine 03/17/21 05/04/21 Michelle Norris MD [address] [place] [address] PCP - General Internal Medicine 05/05/21 09/13/22 Rosetta Diamond MD [address] [place] [address] KARTIK CHEN [address] PCP - General Internal Medicine 09/14/22 documented as of this encounter
--- OUTSIDE RECORDS SUMMARY | 2024-12-04 11:08 | XMS_ITS | Encounter Summary ---
Author Organization [facility] Address [address] [place] [address] Care Team Providers Care Professor Of Literature Name Role Phone Michelle Norris MD Primary Care Provider Unavail able [facility], Pcp [facility] Michelle [facility] MD Primary Care Provider Unavail able Rosetta Diamond MD Primary Care Provider + Encounter Details Date Type Department Care Team Description 11/15/2018 Release of Information Medical Records [address] [place] [id number] Abstract, Provider Social History Tobacco Use Types [...] on filedocumented in this encounter Care Teams Professor Of Literature Relationship Specialty Start Date End Date Michelle Norris MD PCP - General Internal Medicine 03/05/17 03/16/21 [facility], Pcp PCP - General Internal Medicine 03/17/21 05/04/21 Michelle Norris MD PCP - General Internal Medicine 05/05/21 09/13/22 Rosetta Diamond MD [address] [place] [address] PCP - General Internal Medicine 09/14/22 documented as of this encounter
--- OUTSIDE RECORDS SUMMARY | 2024-12-04 11:09 | XMS_ITS | Encounter Summary ---
Author Organization [facility] Address [address] [place] [address] Care Team Providers Care Specification Manager Name Role Phone Michelle Norris MD Primary Care Provider Unavail able [facility], Pcp [facility] Michelle Lagos MD Primary Care Provider Unavail able Rosetta Diamond MD Primary Care Provider + Reason for Visit * Reason Onset Date Comments Faxed Order 08/22/2020 Encounter Details Date Type Department Care Team Description 08/22/2020 Telephone Adult [address] [address] Michelle Norris MD Faxed Order Social History [...] TO BE SIGN AND FAX BACK TO [phone]. documented in this encounter Plan of Treatment Not on file documented as of this encounter Visit Diagnoses Not on filedocumented in this encounter Care Teams Specification Manager Relationship Specialty Start Date End Date Michelle Norris MD PCP - General Internal Medicine 03/05/17 03/16/21 [facility], Pcp PCP - General Internal Medicine 03/17/21 05/04/21 Michelle Norris MD PCP - General Internal Medicine 05/05/21 09/13/22 Rosetta Diamond MD [address] [place] [address] PCP - General Internal Medicine 09/14/22 documented as of this encounter
--- OUTSIDE RECORDS SUMMARY | 2024-12-04 11:09 | XMS_ITS | Encounter Summary ---
Author Organization [facility] Address [address] [place] [address] Care Team Providers Care Consulting Database Administrator Name Role Phone Michelle Norris MD Primary Care Provider Unavail able [facility], Pcp [facility] Michelle Norris MD Primary Care Provider Unavail able Rosetta Diamond MD Primary Care Provider + Encounter Details Date Type Department Care Team Description 03/27/2020 Hospital Medical Records [address] [place] [address] Angelique Moore Social History Tobacco Use Types [...] on filedocumented in this encounter Care Teams Consulting Database Administrator Relationship Specialty Start Date End Date Michelle Norris MD PCP - General Internal Medicine 03/05/17 03/16/21 [facility], Pcp PCP - General Internal Medicine 03/17/21 05/04/21 Michelle Norris MD PCP - General Internal Medicine 05/05/21 09/13/22 Rosetta Diamond MD [address] [place] [address] PCP - General Internal Medicine 09/14/22 documented as of this encounter
--- OUTSIDE RECORDS SUMMARY | 2024-12-04 11:09 | XMS_ITS | Encounter Summary ---
Author Organization [facility] Address [address] [place] [address] Care Team Providers Care Floorman Name Role Phone Michelle Norris MD Primary Care Provider Unavail able [facility], Pcp Primary Care Provider Unavailabl e Michelle Norris MD Primary Care Provider Unavail able Rosetta Diamond MD Primary Care Provider + Encounter Details Date Type Department Care Team Description 09/24/2020 Hospital Medical Records [address] [place] [address] Ibrahima Ron Social History Tobacco Use Types [...] on filedocumented in this encounter Care Teams Floorman Relationship Specialty Start Date End Date Michelle Norris MD PCP - General Internal Medicine 03/05/17 03/16/21 [facility], Pcp PCP - General Internal Medicine 03/17/21 05/04/21 Michelle Norris MD PCP - General Internal Medicine 05/05/21 09/13/22 Rosetta Diamond MD [address] [place] [address] PCP - General Internal Medicine 09/14/22 documented as of this encounter
--- OUTSIDE RECORDS SUMMARY | 2024-12-04 11:10 | XMS_ITS | Encounter Summary ---
Author Organization [facility] Address [address] [place] [address] Care Team Providers Care Lean Manufacturing Coordinator Name Role Phone Rosetta Diamond MD Primary Care Provider + Reason for Visit * Reason Onset Date Comments Bookstore Clerk Feedback 05/01/2024 Urogynecology Encounter Details Date Type Department Care Team Description 05/01/2024 Telephone OBGYN - [place] [address] [place], [place] [phone] Rebecca Kimbrough CNM [address] [place], [place] [phone] Bookstore Clerk Feedback (Urogynecology) Social History Tobacco Use Types Packs/Day Years [...] * Telephone Encounter - Donavon Harvey - 05/01/2024 7:40 AM EDT Rebecca Good Morning, This is FYI. You recently referred this patient to see Urogynecology on 04/22/2024. Unfortunately after several attempts and a letter sent to patient on 05/01/2024, we were unsuccessful in reaching this patient to schedule this appointment. Therefore, we have closed this referral. If the patient happens to reach out to us in the future, I will make sure that you ae informed. Thank you, Nick Referrals coordinator documented in this encounter Plan of Treatment Not on file documented as of this encounter Visit Diagnoses Not on filedocumented in this encounter Care Teams Lean Manufacturing Coordinator Relationship Specialty Start Date End Date Rosetta Diamond MD [address] [place] [address] PCP - General Internal Medicine 09/14/22 documented as of this encounter
--- OUTSIDE RECORDS SUMMARY | 2024-12-04 11:10 | XMS_ITS | Encounter Summary ---
Author Organization [facility] Address [address] [place] [address] Care Team Providers Care Green Jobs Trainer Name Role Phone Michelle Norris MD Primary Care Provider Unavail able Rosetta Diamond MD Primary Care Provider + Encounter Details Date Type Department Care Team Description 05/17/2021 Hospital Medical Records [address] [place] [address] Robby Bazan Social History Tobacco Use Types [...] on filedocumented in this encounter Care Teams Green Jobs Trainer Relationship Specialty Start Date End Date Michelle Norris MD PCP - General Internal Medicine 05/05/21 09/13/22 Rosetta Diamond MD [address] [place] [address] PCP - General Internal Medicine 09/14/22 documented as of this encounter
--- OUTSIDE RECORDS SUMMARY | 2024-12-04 11:10 | XMS_ITS | Encounter Summary ---
Author Organization [facility] Address [address] [place] [address] Care Team Providers Care Relay Worker Name Role Phone Michelle Norris MD Primary Care Provider Unavail able [facility], Pcp Primary [facility] Provider [facility] Michelle Lagos MD Primary Care Provider Unavail able Rosetta Diamond MD Primary Care Provider + Encounter Details Date Type Department Care Team Description 12/21/2020 Hospital Medical Records [address] [place] [address] Social History Tobacco Use Types Packs/Day Years [...] on filedocumented in this encounter Care Teams Relay Worker Relationship Specialty Start Date End Date Michelle Norris MD PCP - General Internal Medicine 03/05/17 03/16/21 [facility], Pcp PCP - General Internal Medicine 03/17/21 05/04/21 Michelle Norris MD PCP - General Internal Medicine 05/05/21 09/13/22 Rosetta Diamond MD [address] [place] [address] PCP - General Internal Medicine 09/14/22 documented as of this encounter
--- OUTSIDE RECORDS SUMMARY | 2024-12-04 11:10 | XMS_ITS | Encounter Summary ---
Author Organization [facility] Address [address] [place] [address] Care Team Providers Care Market Researcher Name Role Phone Michelle Norris MD Primary Care Provider Unavail able [facility], Pcp [facility] Michelle Lagos MD Primary Care Provider Unavail able Rosetta Diamond MD Primary Care Provider + Reason for Visit * Reason Onset Date Comments Faxed Order 10/27/2020 Encounter Details Date Type Department Care Team Description 10/27/2020 Telephone Adult [address] [address] Michelle Norris MD Faxed Order Social History [...] encounter Miscellaneous Notes * Telephone Encounter - Lenore Harris - 10/27/2020 12:48 PM EST Faxed order to be signed and faxed back documented in this encounter Plan of Treatment Not on file documented as of this encounter Visit Diagnoses Not on filedocumented in this encounter Care Teams Market Researcher Relationship Specialty Start Date End Date Michelle Norris MD PCP - General Internal Medicine 03/05/17 03/16/21 [facility], [facility] PCP - General Internal Medicine 03/17/21 05/04/21 Michelle Norris MD PCP - General Internal Medicine 05/05/21 09/13/22 Rosetta Diamond MD [address] [place] [address] PCP - General Internal Medicine 09/14/22 documented as of this encounter
--- OUTSIDE RECORDS SUMMARY | 2024-12-04 11:10 | XMS_ITS | Encounter Summary ---
Author Organization [facility] Address [address] [place] [address] Care Team Providers Care Inspector Canvas Products Name Role Phone Michelle Norris MD Primary Care Provider Unavail able [facility], Pcp [facility] Michelle Norris MD Primary Care Provider Unavail able Rosetta Diamond MD Primary Care Provider + Encounter Details Date Type Department Care Team Description 09/22/2017 Hospital Medical Records [address] [place] [address] Social History Tobacco Use Types Packs/Day Years [...] on filedocumented in this encounter Care Teams Inspector Canvas Products Relationship Specialty Start Date End Date Michelle Norris MD PCP - General Internal Medicine 03/05/17 03/16/21 [facility], Pcp PCP - General Internal Medicine 03/17/21 05/04/21 Michelle Norris MD PCP - General Internal Medicine 05/05/21 09/13/22 Rosetta Diamond MD [address] [place] [address] PCP - General Internal Medicine 09/14/22 documented as of this encounter
--- OUTSIDE RECORDS SUMMARY | 2024-12-04 11:10 | XMS_ITS | Encounter Summary ---
Author Organization [facility] Address [address] [place] [address] Care Team Providers Care Manager People Name Role Phone Michelle Norris MD Primary Care Provider Unavail able [facility] Michelle Lagos MD Primary Care Provider Unavail able Rosetta Diamond MD Primary Care Provider + Reason for Visit * Reason Onset Date Comments Provider Call Back 10/12/2020 Encounter Details Date Type Department Care Team Description 10/12/2020 Telephone Adult Medicine [address] [address] Michelle Norris MD Provider Call Back Social [...] direct care staff returned call. Please call [phone] to speak with Milton if florencio can [...] this person: NO Reason for call back: prison aid calling would like to speak to [...] on filedocumented in this encounter Care Teams Manager People Relationship Specialty Start Date End Date Michelle Norris MD PCP - General Internal Medicine 03/05/17 03/16/21 [facility], Pcp PCP - General Internal Medicine 03/17/21 05/04/21 Michelle Norris MD PCP - General Internal Medicine 05/05/21 09/13/22 Rosetta Diamond MD [address] [place] [address] PCP - General Internal Medicine 09/14/22 documented as of this encounter
--- OUTSIDE RECORDS SUMMARY | 2024-12-04 11:10 | XMS_ITS | Encounter Summary ---
Author Organization [facility] Address [address] [place] [address] Care Team Providers Care Sanitation Lead Name Role Phone Michelle Norris MD Primary Care Provider Unavail able [facility], Pcp [facility] Michelle Norris MD Primary Care Provider Unavail able Rosetta Diamond MD Primary Care Provider + Encounter Details Date Type Department Care Team Description 10/15/2017 Hospital Medical Records [address] [place] [address] Marlen Grande Social History Tobacco Use Types [...] on filedocumented in this encounter Care Teams Sanitation Lead Relationship Specialty Start Date End Date Michelle Norris MD PCP - General Internal Medicine 03/05/17 03/16/21 [facility], Pcp PCP - General Internal Medicine 03/17/21 05/04/21 Michelle Norris MD PCP - General Internal Medicine 05/05/21 09/13/22 Rosetta Diamond MD [address] [place] [address] PCP - General Internal Medicine 09/14/22 documented as of this encounter
--- OUTSIDE RECORDS SUMMARY | 2024-12-04 11:10 | XMS_ITS | Encounter Summary ---
Author Organization [facility] Address [address] [place] [address] Care Team Providers Care Strategic Account Manager Name Role Phone Michelle Norris MD Primary Care Provider Unavail able [facility], Pcp [facility] Michelle Norris MD Primary Care Provider Unavail able Rosetta Diamond MD Primary Care Provider + Encounter Details Date Type Department Care Team Description 10/16/2017 Hospital Medical Records [address] [place] [address] Marlen Grande Social History Tobacco Use Types [...] on filedocumented in this encounter Care Teams Strategic Account Manager Relationship Specialty Start Date End Date Michelle Norris MD PCP - General Internal Medicine 03/05/17 03/16/21 [facility], Pcp PCP - General Internal Medicine 03/17/21 05/04/21 Michelle Norris MD PCP - General Internal Medicine 05/05/21 09/13/22 Rosetta Diamond MD [address] [place] [address] PCP - General Internal Medicine 09/14/22 documented as of this encounter
--- OUTSIDE RECORDS SUMMARY | 2024-12-04 11:10 | XMS_ITS | Encounter Summary ---
Author Organization [facility] Address [address] [place] [address] Care Team Providers Care Supply Chain Coordinator Name Role Phone Michelle Norris MD Primary Care Provider Unavail able [facility] Michelle Lagos MD Primary Care Provider Unavail able Rosetta Diamond MD Primary Care Provider + Reason for Visit * Reason Onset Date Comments VNA Call 02/24/2021 Encounter Details Date Type Department Care Team Description 02/24/2021 Telephone Adult Medicine [address] [address] Michelle Norris MD VNA Call Social History [...] encounter Miscellaneous Notes * Telephone Encounter - Cherise Mendez R.N. - 02/24/2021 10:23 AM EDT Call to Lauren, she called to notify PCP Pt was in ED. Call to Pt's home number, no answer, left message to return phone call. * Telephone Encounter - Milton Andre - 02/24/2021 9:53 AM EDT VNA CALL Which VNA office is calling? [facility] Full name of caller: Lauren The caller is A nurse Is the caller at the patients home?: NO Reason for call: Lauren calling to let us know that the patient was sent to [facility]'s Er on 02/21/21. Does caller need an urgent call back? NO Was CONTACT Telephone # obtained above?: YES Fax #: documented in this encounter Plan of Treatment Not on file documented as of this encounter Visit Diagnoses Not on filedocumented in this encounter Care Teams Supply Chain Coordinator Relationship Specialty Start Date End Date Michelle Norris MD PCP - General Internal Medicine 03/05/17 03/16/21 [facility] PCP - General Internal Medicine 03/17/21 05/04/21 Michelle Norris MD PCP - General Internal Medicine 05/05/21 09/13/22 Rosetta Diamond MD [address] [place] [address] PCP - General Internal Medicine 09/14/22 documented as of this encounter
--- OUTSIDE RECORDS SUMMARY | 2024-12-04 11:10 | XMS_ITS | Encounter Summary ---
Author Organization [facility] Address [address] [place] [address] Care Team Providers Care Conservation Agent Name Role Phone Katherine Norris MD Primary Care Provider Unavail able [facility], [facility] Katherine Lagos MD Primary Care Provider Unavail able Rosetta Diamond MD Primary Care Provider + Reason for Visit * Reason Onset Date Comments hospital follow up 10/16/2017 Encounter Details Date Type Department Care Team Description 10/16/2017 Telephone Adult Medicine [address] [address] Katherine Norris MD hospital follow up Social [...] 1030 with KATHERINE FINE Pt seen at [facility] for crisis notes requested * Telephone Encounter - Deanna Oglesby - 10/16/2017 11:53 AM EST Hospital follow up appointment needed Hospital patient was treated at: [facility] Was this only an ER visit [...] on filedocumented in this encounter Care Teams Conservation Agent Relationship Specialty Start Date End Date Katherine Norris MD PCP - General Internal Medicine 03/05/17 03/16/21 [facility] [place] - General Internal Medicine 03/17/21 05/04/21 Katherine Norris MD PCP - General Internal Medicine 05/05/21 09/13/22 Rosetta Diamond MD [address] [place] [address] PCP - General Internal Medicine 09/14/22 documented as of this encounter
--- OUTSIDE RECORDS SUMMARY | 2024-12-04 11:11 | XMS_ITS | Encounter Summary ---
Author Organization [facility] Address [address] [place] [address] Care Team Providers Care Client Development Manager Name Role Phone Nikki Alcantar MD Primary Care Provider [phone] Michelle Norris MD Primary Care Provider Unavail [facility] Primary Care Provider [facility] Michelle Norris MD Primary Care Provider Unavail [facility] Rosetta Diamond MD Primary Care Provider + Encounter Details Date Type Department Care Team Description 07/06/2013 Hospital Medical Records [address] [place] [place] [phone] Stefan Safnord MD Social History Tobacco Use Types Packs/Day [...] on filedocumented in this encounter Care Teams Client Development Manager Relationship Specialty Start Date End Date Nikki Alcantar MD [address] [place] [address] PCP - General 06/26/05 03/04/17 Michelle Norris MD [address] [place] [address] PCP - General Internal Medicine 03/05/17 03/16/21 [facility], Pcp [address] [place] [address] PCP - General Internal Medicine 03/17/21 05/04/21 Michelle Norris MD [address] [place] [address] PCP - General Internal Medicine 05/05/21 09/13/22 Rosetta Diamond MD [address] [place] [place] [address] PCP - General Internal Medicine 09/14/22 documented as of this encounter
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
--- OUTSIDE RECORDS SUMMARY | 2024-12-04 11:11 | XMS_ITS | Clinical Summary ---
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 11/01/2024 2:57 AM [facility] CO2 27 21 - 32 mmol/L LAB CHEMISTRY METHOD 11/01/2024 2:57 AM [facility] Anion Gap 6 3 - 11 LAB CHEMISTRY METHOD 11/01/2024 2:57 AM [facility] Glucose 130(H) 70 - 100 mg/dL LAB CHEMISTRY METHOD 11/01/2024 2:57 AM [facility] BUN 8 5 - 25 mg/dL LAB CHEMISTRY METHOD 11/01/2024 2:57 AM [facility] Creatinine 0.67 0.50 - 1.10 mg/dL LAB CHEMISTRY METHOD 11/01/2024 2:57 AM [facility] eGFR 109 >=60 mL/min/1. 73m2 LAB CHEMISTRY METHOD 11/01/2024 2:57 AM [facility] Comment:Calculation based on the??Chronic Kidney Disease Epidemiology Collaboration (CKD-EPI) equation refit??without adjustment for race. BUN/Creatinine Ratio 11.9 LAB CHEMISTRY METHOD 11/01/2024 2:57 AM [facility] Calcium 8.9 8.5 - 10.5 mg/dL LAB CHEMISTRY METHOD 11/01/2024 2:57 AM [facility] AST (SGOT) 24 10 - 42 unit/L LAB CHEMISTRY METHOD 11/01/2024 2:57 AM [facility] ALT (SGPT) 45 10 - 60 unit/L LAB CHEMISTRY METHOD 11/01/2024 2:57 AM [facility] Alkaline Phosphatase 164(H) 42 - 121 unit/L LAB CHEMISTRY METHOD 11/01/2024 2:57 AM [facility] Total Protein 6.4 6.0 - 8.0 g/dL LAB CHEMISTRY METHOD 11/01/2024 2:57 AM [facility] Albumin 3.4 3.2 - 5.0 g/dL LAB CHEMISTRY METHOD 11/01/2024 2:57 AM [facility] Total Bilirubin 0.1 0.0 - 1.4 mg/dL LAB CHEMISTRY METHOD 11/01/2024 2:57 AM [facility] Blood Venous blood specimen / Unknown Venipuncture / Unknown 11/01/2024 2:07 AM EST 11/01/2024 2:29 AM EST us Dylan CAPELLAN LAB BLOOD ORDERABLES Final Resul t [facility] [address] [place] [address], * XR Thoracic Spine 2 Views (10/20/2024 2:33 AM EST) Anatomical Region Laterality Modality Spine, T-spine Radiographic Renata ging 10/20/2024 8:50 AM EST Impressions 10/20/2024 8:52 AM EST The thoracic spine is moderately kyphotic as also seen on 09/07/2024. Otherwise, normal examination, without acute findings. Code 08915 -------- FINAL REPORT -------- Dictated By: Jefe Agrawal Dictated Date: 10/20/2024 08:50 ET Assigned Physician: Jefe Agrawal Reviewed and Electronically Signed By: Jefe Agrawal Signed Date: 10/20/2024 08:52 ET Workstation ID: [id number] Transcribed By: Self Edit Transcribed Date: 10/20/2024 [...] as also seen on the chest radiograph [id number]/24/2024. The alignment of the bony structures is otherwise anatomic. Nofracture or osteolytic or osteoblastic lesion is seen. The disc spaces arewell-maintained. IMPRESSION: The thoracic spine is moderately kyphotic as also seen on 09/07/2024.Otherwise, normal examination, without acute findings. Code 33326 -------- FINAL REPORT -------- Dictated By: Jefe Agrawal Dictated Date: 10/20/2024 08:50 ET Assigned Physician: Jefe Agrawal Reviewed and Electronically Signed By: Jefe Agrawal Signed Date: 10/20/2024 08:52 ET Workstation ID: [id number] Transcribed By: Self Edit Transcribed Date: 10/20/2024 08:50 ET us Alberto Massey MD IMG XR PROCEDURES Final Result * XR Lumbar Spine 2-3 Views (10/20/2024 2:32 AM EST) Anatomical Region Laterality Modality Spine, L-spine Radiographic Renata ging 10/20/2024 8:16 AM EST Impressions 10/20/2024 8:18 AM EST Impression: No evidence of lumbar spine fracture or subluxation. [place] ([id number]) -------- FINAL REPORT -------- Dictated By: Eloina Mayo Dictated Date: 10/20/2024 08:16 ET Assigned Physician: Eloina Mayo Reviewed and Electronically Signed By: Eloina Mayo Signed Date: 10/20/2024 08:18 ET Workstation ID: [id number] Transcribed By: Self Edit Transcribed Date: 10/20/2024 [...] lumbar spine fracture or subluxation. [place] PA ([id number]) -------- FINAL REPORT -------- Dictated By: Eloina Mayo Dictated Date: 10/20/2024 08:16 ET Assigned Physician: Eloina Mayo Reviewed and Electronically Signed By: Eloina Mayo Signed Date: 10/20/2024 08:18 ET Workstation ID: [id number] Transcribed By: Self Edit Transcribed Date: 10/20/2024 [...] RESULTING AGENCY - 04/28/2024 11:46 AM EDT [id number] THINPREP PAP, IMAGED: NEGATIVE FOR SQUAMOUS INTRAEPITHELIAL [...] DIAGNOSIS. PAP HX NEGATIVE, [Z01.419] Rebecca Kimbrough [facility] CYTOLOGY ORDERABLES Final Result HISTORICAL [...] Documents on File Type Date Recorded Patient Fixture Builder Expl anation Health Care Decision (hx) 07/03/2023 [...] (hx) 07/03/2023 AD MARTINEZ DIRECTIVE Care Teams Rug Shampooer Relationship Specialty Start Date End Date Maribel Marquez [address] [place] [address] PCP - General 09/08/24
--- OUTSIDE RECORDS SUMMARY | 2024-12-04 11:11 | XMS_ITS | Encounter Summary ---
Author Organization [facility] Address [address] [place] [address] Care Team Providers Care Change Advisor Name Role Phone Nikki Alcantar MD Primary Care Provider [phone] Michelle Norris MD Primary Care Provider Unavail [facility] Primary Care Provider [facility] Michelle Norris MD Primary Care Provider Unavail [facility] Rosetta Diamond MD Primary Care Provider + Encounter Details Date Type Department Care Team Description 07/10/2013 Hospital Medical Records [address] [place] [id number] Erik Sanches Social History Tobacco Use Types Packs/Day Years [...] on filedocumented in this encounter Care Teams Change Advisor Relationship Specialty Start Date End Date Nikki Alcantar MD [address] [place] [address] PCP - General 06/26/05 03/04/17 Michelle Norris MD [address] [place] [address] PCP - General Internal Medicine 03/05/17 03/16/21 [facility], Pcp [address] [place] [address] PCP - General Internal Medicine 03/17/21 05/04/21 Michelle Norris MD [address] [place] [address] PCP - General Internal Medicine 05/05/21 09/13/22 Rosetta Diamond MD [address] [place] [address] PCP - General Internal Medicine 09/14/22 documented as of this encounter
--- OUTSIDE RECORDS SUMMARY | 2024-12-04 11:11 | XMS_ITS | Encounter Summary ---
Author Organization [facility] Address [address] [place] [address] Care Team Providers Care Crochet Beader Name Role Phone Michelle Norris MD Primary Care Provider Unavail able [facility], Pcp Primary Care Provider Michelle Abdi MD Primary Care Provider Unavail able Rosetta Diamond MD Primary Care Provider + Reason for Visit * Reason Onset Date Comments Faxed Order 11/05/2017 Encounter Details Date Type Department Care Team Description 11/05/2017 Telephone Adult [address] [address] Michelle Norris MD Faxed Order Social History [...] encounter Miscellaneous Notes * Telephone Encounter - Sho Souza - 11/05/2017 1:30 PM EST Telephone order for Dr Griffiths's signature documented in this encounter Plan of Treatment Not on file documented as of this encounter Visit Diagnoses Not on filedocumented in this encounter Care Teams Crochet Beader Relationship Specialty Start Date End Date Michelle Norris MD PCP - General Internal Medicine 03/05/17 03/16/21 [facility], Pcp PCP - General Internal Medicine 03/17/21 05/04/21 Michelle Norris MD PCP - General Internal Medicine 05/05/21 09/13/22 Rosetta Diamond MD [address] [place] [address] PCP - General Internal Medicine 09/14/22 documented as of this encounter
--- OUTSIDE RECORDS SUMMARY | 2024-12-04 11:11 | XMS_ITS | Encounter Summary ---
Author Organization [facility] Address [address] [place] [address] Care Team Providers Care Word Processor Name Role Phone Nikki Alcantar MD Primary Care Provider [phone] Michelle Norris MD Primary Care Provider Unavail [facility] Primary Care Provider [facility] Michelle Norris MD Primary Care Provider Unavail [facility] Rosetta Diamond MD Primary Care Provider + Encounter Details Date Type Department Care Team Description 08/17/2009 Hospital Medical Records [address] [place] [id number] Sony Rothman Social History Tobacco Use Types Packs/Day Years [...] on filedocumented in this encounter Care Teams Word Processor Relationship Specialty Start Date End Date Nikki Alcantar MD [address] [place] [address] PCP - General 06/26/05 03/04/17 Michelle Norris MD [address] [place] [address] PCP - General Internal Medicine 03/05/17 03/16/21 [facility], Pcp [address] [place] [address] PCP - General Internal Medicine 03/17/21 05/04/21 Michelle Norris MD [address] [place] [address] [place] [address] PCP - General Internal Medicine 05/05/21 09/13/22 Rosetta Diamond MD [address] [place], [place] [phone] PCP - General Internal Medicine 09/14/22 documented as of this encounter
--- OUTSIDE RECORDS SUMMARY | 2024-12-04 11:11 | XMS_ITS | Encounter Summary ---
Author Organization [facility] Address [address] [place] [address] Care Team Providers Care Business Quality Assurance Analyst Name Role Phone Nikki Alcantar MD Primary Care Provider [phone] Michelle Norris MD Primary Care Provider Unavail [facility] Primary Care Provider [facility] Michelle Norris MD Primary Care Provider Unavail [facility] Rosetta Diamond MD Primary Care Provider + Encounter Details Date Type Department Care Team Description 08/19/2009 Hospital Medical Records [address] [place] [id number] Sumeet Yadav Social History Tobacco Use Types [...] on filedocumented in this encounter Care Teams Business Quality Assurance Analyst Relationship Specialty Start Date End Date Nikki Alcantar MD [address] [place] [address] PCP - General 06/26/05 03/04/17 Michelle Norris MD [address] [place] [address] PCP - General Internal Medicine 03/05/17 03/16/21 [facility], Pcp [address] [place] [address] PCP - General Internal Medicine 03/17/21 05/04/21 Michelle Norris MD [address] [place] [address] [place] [address] PCP - General Internal Medicine 05/05/21 09/13/22 Rosetta Diamond MD [address] [place], [place] [phone] PCP - General Internal Medicine 09/14/22 documented as of this encounter
--- OUTSIDE RECORDS SUMMARY | 2024-12-04 11:11 | XMS_ITS | Encounter Summary ---
Author Organization [facility] Address [address] [place] [address] Care Team Providers Care Undercollar Maker Name Role Phone Michelle Norris MD Primary Care Provider [facility]avail [facility], Pcp [facility] Michelle Norris MD Primary Care Provider Unavail able Rosetta Diamond MD Primary Care Provider + Encounter Details Date Type Department Care Team Description 11/18/2017 Hospital Medical Records [address] [place] [address] Marlen Grande Social History Tobacco Use Types [...] on filedocumented in this encounter Care Teams Undercollar Maker Relationship Specialty Start Date End Date Michelle Norris MD PCP - General Internal Medicine 03/05/17 03/16/21 [facility], Pcp PCP - General Internal Medicine 03/17/21 05/04/21 Michelle Norris MD PCP - General Internal Medicine 05/05/21 09/13/22 Rosetta Diamond MD [address] [place] [address] PCP - General Internal Medicine 09/14/22 documented as of this encounter
--- OUTSIDE RECORDS SUMMARY | 2024-12-04 11:11 | XMS_ITS | Encounter Summary ---
Author Organization [facility] Address [address] [place] [address] Care Team Providers Care Retail Client Manager Name Role Phone Nikki Alcantar MD Primary Care Provider [phone] Michelle Norris MD Primary Care Provider Unavail [facility] Primary Care Provider [facility] Michelle Norris MD Primary Care Provider Unavail [facility] Rosetta Diamond MD Primary Care Provider + Encounter Details Date Type Department Care Team Description 08/08/2013 Hospital Medical Records [address] [place] [address] Reena Dominguez Social History Tobacco Use Types [...] filedocumented in this encounter Care Teams Retail Client Manager Relationship Specialty Start Date End Date Nikki Alcantar MD [address] [place] [address] PCP - General 06/26/05 03/04/17 Michelle Norris MD [address] [place] [address] PCP - General Internal Medicine 03/05/17 03/16/21 [facility], Pcp [address] [place] [address] PCP - General Internal Medicine 03/17/21 05/04/21 Michelle Norris MD [address] [place] [address] [place] [address] PCP - General Internal Medicine 05/05/21 09/13/22 Rosetta Diamond MD [address] [place], [place] [phone] PCP - General Internal Medicine 09/14/22 documented as of this encounter
--- OUTSIDE RECORDS SUMMARY | 2024-12-04 11:11 | XMS_ITS | Encounter Summary ---
Author Organization [facility] Address [address] [place] [address] Care Team Providers Care Physician Office Assistant Name Role Phone Nikki Alcantar MD Primary Care Provider [phone] Michelle Norris MD Primary Care Provider Unavail [facility] Primary Care Provider [facility] Michelle Norris MD Primary Care Provider Unavail [facility] Rosetta Diamond MD Primary Care Provider + Encounter Details Date Type Department Care Team Description 07/14/2013 Hospital Medical Records [address] [place] [address] Social History Tobacco Use Types Packs/Day Years [...] on filedocumented in this encounter Care Teams Physician Office Assistant Relationship Specialty Start Date End Date Nikki Alcantar MD [address] [place] [address] PCP - General 06/26/05 03/04/17 Michelle Norris MD [address] [place] [address] PCP - General Internal Medicine 03/05/17 03/16/21 [facility], Pcp [address] [place] [address] PCP - General Internal Medicine 03/17/21 05/04/21 Michelle Norris MD [address] [place] [address] PCP - General Internal Medicine 05/05/21 09/13/22 Rosetta Diamond MD [address] [place] [address] KARTIK CHEN [address] PCP - General Internal Medicine 09/14/22 documented as of this encounter
--- OUTSIDE RECORDS SUMMARY | 2024-12-04 11:12 | XMS_ITS | Encounter Summary ---
Author Organization [facility] Address [address] [place] [address] Care Team Providers Care Gag Writer Name Role Phone Nikki Alcantar MD Primary Care Provider [phone] Michelle Norris MD Primary Care Provider Unavail [facility] Primary Care Provider [facility] Michelle Norris MD Primary Care Provider Unavail [facility] Rosetta Diamond MD Primary Care Provider + Encounter Details Date Type Department Care Team Description 04/22/2016 Hospital Medical Records [address] [place] [id number] Rod Mccoy MD Social History Tobacco Use [...] on filedocumented in this encounter Care Teams Gag Writer Relationship Specialty Start Date End Date Nikki Alcantar MD [address] [place] [address] PCP - General 06/26/05 03/04/17 Michelle Norris MD [address] [place] [address] PCP - General Internal Medicine 03/05/17 03/16/21 [facility], Pcp [address] [place] [address] PCP - General Internal Medicine 03/17/21 05/04/21 Michelle Norris MD [address] [place] [address] PCP - General Internal Medicine 05/05/21 09/13/22 Rosetta Diamond MD [address] [place] [address] PCP - General Internal Medicine 09/14/22 documented as of this encounter
--- OUTSIDE RECORDS SUMMARY | 2024-12-04 11:12 | XMS_ITS | Encounter Summary ---
Author Organization [facility] Address [address] [place] [address] Care Team Providers Care Bioengineer Name Role Phone Nikki Alcantar MD Primary Care Provider [phone] Michelle Norris MD Primary Care Provider Unavail [facility] Primary Care Provider [facility] Michelle Norris MD Primary Care Provider Unavail [facility] Rosetta Diamond MD Primary Care Provider + Encounter Details Date Type Department Care Team Description 05/09/2016 Hospital Medical Records [address] [place] [phone] Marlen Grande Social History Tobacco Use Types [...] on filedocumented in this encounter Care Teams Bioengineer Relationship Specialty Start Date End Date Nikki Alcantar MD [address] [place] [address] PCP - General 06/26/05 03/04/17 Michelle Norris MD [address] [place] [address] PCP - General Internal Medicine 03/05/17 03/16/21 [facility], Pcp [address] [place] [address] PCP - General Internal Medicine 03/17/21 05/04/21 Michelle Norris MD [address] [place] [address] PCP - General Internal Medicine 05/05/21 09/13/22 Rosetta Diamond MD [address] [place] [address] PCP - General Internal Medicine 09/14/22 documented as of this encounter
--- OUTSIDE RECORDS SUMMARY | 2024-12-04 11:12 | XMS_ITS | Encounter Summary ---
Author Organization [facility] Address [address] [place] [address] Care Team Providers Care Senior Instructional Designer Name Role Phone Michelle Norris MD Primary Care Provider Unavail able [facility] Michelle Lagos MD Primary Care Provider Unavail able Rosetta Diamond MD Primary Care Provider + Reason for Visit * Reason Onset Date Comments Call From Hospital 08/15/2019 Encounter Details Date Type Department Care Team Description 08/15/2019 Telephone Adult Medicine [address] [address] Michelle Norris MD Call From Hospital Social [...] * Telephone Encounter - Donavon Harvey - 08/15/2019 8:49 AM EDT Information Needed Who is calling: [facility] Phychiatric [facility] Information being requested? Calling to inform us that patient was admitted on 08/14/19. If information is regarding a referral and notes are needed- transfer call to HIM department If other information is needed, was an COLLIN signed? YES How is the information to be communicated back to the caller? documented in this encounter Plan of Treatment Not on file documented as of this encounter Visit Diagnoses Not on filedocumented in this encounter Care Teams Senior Instructional Designer Relationship Specialty Start Date End Date Michelle Norris MD PCP - General Internal Medicine 03/05/17 03/16/21 [facility] PCP - General Internal Medicine 03/17/21 05/04/21 Michelle Norris MD PCP - General Internal Medicine 05/05/21 09/13/22 Rosetta Diamond MD [address] [place] [address] PCP - General Internal Medicine 09/14/22 documented as of this encounter
--- OUTSIDE RECORDS SUMMARY | 2024-12-04 11:12 | XMS_ITS | Encounter Summary ---
Author Organization [facility] Address [address] [place] [address] Care Team Providers Care Dumper Mold Cleaner Name Role Phone Nikki Alcantar MD Primary Care Provider Michelle Norris MD Primary Care Provider Unavail [facility] Primary Care Provider [facility] Michelle Norris MD Primary Care Provider Unavail able Rosetta Diamond MD Primary Care Provider + Reason for Visit * Reason Onset Date Comments Faxed Order 04/26/2016 Encounter Details Date Type Department Care Team Description 04/26/2016 Telephone Adult Medicine [facility] [address] [place] [address] [phone] Nikki Alcantar MD [address] [place] [address] [phone] Faxed Order Social History Tobacco Use Types [...] on filedocumented in this encounter Care Teams Dumper Mold Cleaner Relationship Specialty Start Date End Date Nikki Alcantar MD [address] [place] [address] PCP - General 06/26/05 03/04/17 Michelle Norris MD [address] [place] [address] 39107 PCP - General Internal Medicine 03/05/17 03/16/21 [place] [address] PCP - General Internal Medicine 03/17/21 05/04/21 Michelle Norris MD [address] [place] [address] 85002 PCP - General Internal Medicine 05/05/21 09/13/22 Rosetta Diamond MD [address] [place] [address] PCP - General Internal Medicine 09/14/22 documented as of this encounter
--- OUTSIDE RECORDS SUMMARY | 2024-12-04 11:12 | XMS_ITS | Encounter Summary ---
Author Organization [facility] Address [address] [place] [address] Care Team Providers Care Match Marker Name Role Phone Nikki Alcantar MD Primary Care Provider [phone] Michelle Norris MD Primary Care Provider Unavail [facility] Primary Care Provider [facility] Michelle Norris MD Primary Care Provider Unavail [facility] Rosetta Diamond MD Primary Care Provider + Encounter Details Date Type Department Care Team Description 10/01/2013 Hospital Medical Records [address] [place] [address] 41202 Richard Nevarez Social History Tobacco Use Types [...] on filedocumented in this encounter Care Teams Match Marker Relationship Specialty Start Date End Date Nikki Alcantar MD [address] [place] [address] 17085 PCP - General 06/26/05 03/04/17 Michelle Norris MD [address] [place] [address] 78640 PCP - General Internal Medicine 03/05/17 03/16/21 [facility], Pcp [address] [place] [address] 59412 PCP - General Internal Medicine 03/17/21 05/04/21 Michelle Norris MD [address] [place] [address] 95450 PCP - General Internal Medicine 05/05/21 09/13/22 Rosetta Diamond MD [address] [place] [address] 01020 PCP - General Internal Medicine 09/14/22 documented as of this encounter
--- OUTSIDE RECORDS SUMMARY | 2024-12-04 11:12 | XMS_ITS | Encounter Summary ---
Author Organization [facility] Address [address] [place] [address] Care Team Providers Care Stone Paver Name Role Phone Nikki Alcantar MD Primary Care Provider [phone] Michelle Norris MD Primary Care Provider Unavail [facility] Primary Care Provider [facility] Michelle Norris MD Primary Care Provider Unavail [facility] Rosetta Diamond MD Primary Care Provider + Encounter Details Date Type Department Care Team Description 10/07/2010 Hospital Medical Records [address] [place] [phone] Alverto Hernandez Social History Tobacco Use Types [...] on filedocumented in this encounter Care Teams Stone Paver Relationship Specialty Start Date End Date Nikki Alcantar MD [address] [place] [address] 83524 PCP - General 06/26/05 03/04/17 Michelle Norris MD [address] [place] [address] 90720 PCP - General Internal Medicine 03/05/17 03/16/21 [facility], Pcp [address] [place] [address] 81018 PCP - General Internal Medicine 03/17/21 05/04/21 Michelle Norris MD [address] [place] [address] 05028 PCP - General Internal Medicine 05/05/21 09/13/22 Rosetta Diamond MD [address] [place] [address] 01020 PCP - General Internal Medicine 09/14/22 documented as of this encounter
--- OUTSIDE RECORDS SUMMARY | 2024-12-04 11:12 | XMS_ITS | Encounter Summary ---
Author Organization [facility] Address [address] [place] [address] Care Team Providers Care Vegetable Harvest Worker Name Role Phone Nikki Alcantar MD Primary Care Provider Michelle Norris MD Primary Care Provider Unavail [facility] Primary Care Provider [facility] Michelle Norris MD Primary Care Provider Unavail [facility] Rosetta Diamond MD Primary Care Provider + Encounter Details Date Type Department Care Team Description 08/28/2013 Head Piece Assembler Report Medical Records [address] [place] [address] 43712 Julio Paredes MD Social History Tobacco Use [...] on filedocumented in this encounter Care Teams Vegetable Harvest Worker Relationship Specialty Start Date End Date Nikki Alcantar MD [address] [place] [address] 52210 PCP - General 06/26/05 03/04/17 Michelle Norris MD [address] [place] [address] PCP - General Internal Medicine 03/05/17 03/16/21 [facility], Pcp [address] [place] [address] 15492 PCP - General Internal Medicine 03/17/21 05/04/21 Michelle Norris MD [address] [place] [address] [place] [address] PCP - General Internal Medicine 05/05/21 09/13/22 Rosetta Diamond MD [address] [place], [place] [phone] PCP - General Internal Medicine 09/14/22 documented as of this encounter
--- OUTSIDE RECORDS SUMMARY | 2024-12-04 11:12 | XMS_ITS | Encounter Summary ---
Author Organization [facility] Address [address] [place] [address] Care Team Providers Care Senior Chemical Process Engineer Name Role Phone Nikki Alcantar MD Primary Care Provider [phone] Michelle Norris MD Primary Care Provider Unavail [facility] Primary Care Provider [facility] Michelle Norris MD Primary Care Provider Unavail [facility] Rosetta Diamond MD Primary Care Provider + Encounter Details Date Type Department Care Team Description 10/07/2010 Hospital Medical Records [address] [place] [address] 10335 Kuldeep Botello Social History Tobacco Use Types [...] filedocumented in this encounter Care Teams Senior Chemical Process Engineer Relationship Specialty Start Date End Date Nikki Alcantar MD [address] [place] [address]3352 PCP - General 06/26/05 03/04/17 Michelle Norris MD [address] [place] [address] PCP - General Internal Medicine 03/05/17 03/16/21 [facility], Pcp [address] [place] [address] PCP - General Internal Medicine 03/17/21 05/04/21 Michelle Norris MD [address] [place] [address] [place] [address] PCP - General Internal Medicine 05/05/21 09/13/22 Rosetta Diamond MD [address] [place], [place] [phone] PCP - General Internal Medicine 09/14/22 documented as of this encounter
--- OUTSIDE RECORDS SUMMARY | 2024-12-04 11:12 | XMS_ITS | Encounter Summary ---
Author Organization [facility] Address [address] [place] [address] Care Team Providers Care Rubber Tubing Splicer Name Role Phone Nikki Alcantar MD Primary Care Provider [phone] Michelle Norris MD Primary Care Provider Unavail [facility] Primary Care Provider [facility] Michelle Norris MD Primary Care Provider Unavail [facility] Rosetta Diamond MD Primary Care Provider + Encounter Details Date Type Department Care Team Description 07/10/2011 Hospital Medical Records [address] [place] [address] 68199 Julio Gilmore Social History Tobacco Use Types [...] filedocumented in this encounter Care Teams Rubber Tubing Splicer Relationship Specialty Start Date End Date Nikki Alcantar MD [address] [place] [address] 32581 PCP - General 06/26/05 03/04/17 Michelle Norris MD [address] [place] [address] 15785 PCP - General Internal Medicine 03/05/17 03/16/21 [facility], Pcp [address] [place] [address] 57478 PCP - General Internal Medicine 03/17/21 05/04/21 Michelle Norris MD [address] [place] [address] 08113 PCP - General Internal Medicine 05/05/21 09/13/22 Rosetta Diamond MD [address] [place] [address] PCP - General Internal Medicine 09/14/22 documented as of this encounter
--- OUTSIDE RECORDS SUMMARY | 2024-12-04 11:12 | XMS_ITS | Encounter Summary ---
Author Organization [facility] Address [address] [place] [address] Care Team Providers Care E Marketing Specialist Name Role Phone Nikki Alcantar MD Primary Care Provider [phone] Michelle Norris MD Primary Care Provider Unavail [facility] Primary Care Provider [facility] Michelle Norris MD Primary Care Provider Unavail [facility] Rosetta Diamond MD Primary Care Provider + Encounter Details Date Type Department Care Team Description 05/12/2010 Hospital Medical Records [address] [place] [address] 17264 RaúlRaquelSagar Social History Tobacco Use Types Packs/Day [...] on filedocumented in this encounter Care Teams E Marketing Specialist Relationship Specialty Start Date End Date Nikki Alcantar MD [address] [place] [address] 9[address]60 PCP - General 06/26/05 03/04/17 Michelle Norris MD [address] [place] [address] PCP - General Internal Medicine 03/05/17 03/16/21 [facility], Pcp [address] [place] [address] PCP - General Internal Medicine 03/17/21 05/04/21 Michelle Nroris MD [address] [place] [address] [place] [address] PCP - General Internal Medicine 05/05/21 09/13/22 Rosetta Diamond MD [address] [place], [place] [phone] PCP - General Internal Medicine 09/14/22 documented as of this encounter
--- OUTSIDE RECORDS SUMMARY | 2024-12-04 11:12 | XMS_ITS | Encounter Summary ---
Author Organization [facility] Address [address] [place] [address] Care Team Providers Care Consumer Lender Name Role Phone Nikki Alcantar MD Primary Care Provider [phone] Michelle Norris MD Primary Care Provider Unavail [facility] Primary Care Provider [facility] Michelle Norris MD Primary Care Provider Unavail [facility] Rosetta Diamond MD Primary Care Provider + Encounter Details Date Type Department Care Team Description 04/23/2016 Hospital Medical Records [address] [place] [address] 39204 Rod Mccoy MD Social History Tobacco Use [...] on filedocumented in this encounter Care Teams Consumer Lender Relationship Specialty Start Date End Date Nikki Alcantar MD [address] [place] [address] 52848 PCP - General 06/26/05 03/04/17 Michelle Norris MD [address] [place] [address] 14322 PCP - General Internal Medicine 03/05/17 03/16/21 [facility], Pcp [address] [place] [address] 07684 PCP - General Internal Medicine 03/17/21 05/04/21 Michelle Norris MD [address] [place] [address] 75766 PCP - General Internal Medicine 05/05/21 09/13/22 Rosetta Diamond MD [address] [place] [address] 01020 PCP - General Internal Medicine 09/14/22 documented as of this encounter
--- OUTSIDE RECORDS SUMMARY | 2024-12-04 11:12 | XMS_ITS | Encounter Summary ---
Author Organization [facility] Address [address] [place] [address] Care Team Providers Care Basketballs And Footballs Reverser Name Role Phone Nikki Alcantar MD Primary Care Provider [phone] Michelle Norris MD Primary Care Provider Unavail [facility] Primary Care Provider [facility] Michelle Norris MD Primary Care Provider Unavail [facility] Rosetta Diamond MD Primary Care Provider + Encounter Details Date Type Department Care Team Description 12/24/2013 Hospital Medical Records [address] [place] [address] 28352 Marlen Grande Social History Tobacco Use Types [...] on filedocumented in this encounter Care Teams Basketballs And Footballs Reverser Relationship Specialty Start Date End Date Nikki Alcantar MD [address] [place] [address] 31556 PCP - General 06/26/05 03/04/17 Michelle Norris MD [address] [place] [address] 52103 PCP - General Internal Medicine 03/05/17 03/16/21 [facility], Pcp [address] [place] [address] 54636 PCP - General Internal Medicine 03/17/21 05/04/21 Michelle Norris MD [address] [place] [address] 61462 PCP - General Internal Medicine 05/05/21 09/13/22 Rosetta Diamond MD [address] [place] [address] 01020 PCP - General Internal Medicine 09/14/22 documented as of this encounter
--- OUTSIDE RECORDS SUMMARY | 2024-12-04 11:12 | XMS_ITS | Encounter Summary ---
Author Organization [facility] Address [address] [place] [address] Care Team Providers Care Skip Loader Name Role Phone Nikki Alcantar MD Primary Care Provider [phone] Michelle Norris MD Primary Care Provider Unavail able [facility] Primary Care Provider [facility] Michelle Norris MD Primary Care Provider Unavail [facility] Rosetta Diamond MD Primary Care Provider + Encounter Details Date Type Department Care Team Description 01/28/2014 [facility] Medical Records [address] [place] [address] [phone] Abstract, Provider Social History Tobacco Use Types [...] on filedocumented in this encounter Care Teams Skip Loader Relationship Specialty Start Date End Date Nikki Alcantar MD [address] [place] [address] 29654 PCP - General 06/26/05 03/04/17 Michelle Norris MD [address] [place] [address] PCP - General Internal Medicine 03/05/17 03/16/21 [facility], Pcp [address] [place] [address] PCP - General Internal Medicine 03/17/21 05/04/21 Michelle Norris MD [address] [place] [address] 00251 PCP - General Internal Medicine 05/05/21 09/13/22 Rosetta Diamond MD [address] [place], [place] [phone] PCP - General Internal Medicine 09/14/22 documented as of this encounter
--- OUTSIDE RECORDS SUMMARY | 2024-12-04 11:12 | XMS_ITS | Encounter Summary ---
Author Organization [facility] Address [address] [place] [address] Care Team Providers Care Grit Removal Operator Name Role Phone Nikki Alcantar MD Primary Care Provider [phone] Michelle Norris MD Primary Care Provider Unavail [facility] Primary Care Provider [facility] Michelle Norris MD Primary Care Provider Unavail [facility] Rosetta Diamond MD Primary Care Provider + Encounter Details Date Type Department Care Team Description 09/30/2010 Hospital Medical Records [address] [place] [address] 47692 María Elena Shelly Social History Tobacco Use Types Packs/Day Years [...] on filedocumented in this encounter Care Teams Grit Removal Operator Relationship Specialty Start Date End Date Nikki Alcantar MD [address] [place] [address] 97074 PCP - General 06/26/05 03/04/17 Michelle Norris MD [address] [place] [address] PCP - General Internal Medicine 03/05/17 03/16/21 [facility], Pcp [address] [place] [address] PCP - General Internal Medicine 03/17/21 05/04/21 Michelle Norris MD [address] [place], [place] [phone] PCP - General Internal Medicine 05/05/21 09/13/22 Rosetta Diamond MD [address] [place] [address] PCP - General Internal Medicine 09/14/22 documented as of this encounter
--- OUTSIDE RECORDS SUMMARY | 2024-12-04 11:12 | XMS_ITS | Encounter Summary ---
Author Organization [facility] Address [address] [place] [address] Care Team Providers Care Senior Interactive Producer Name Role Phone Nikki Alcantar MD Primary Care Provider [phone] Michelle Norris MD Primary Care Provider Unavail able [facility] Primary Care Provider [facility] Michelle Norris MD Primary Care Provider Unavail [facility] Rosetta Diamond MD Primary Care Provider + Encounter Details Date Type Department Care Team Description 10/04/2009 Hospital Medical Records [address] [place] [address] 19252 Bandar Ryan [address] [place] [address] Social History Tobacco Use Types Packs/Day Years [...] filedocumented in this encounter Care Teams Senior Interactive Producer Relationship Specialty Start Date End Date Nikki Alcantar MD [address] [place] [address] 41141 PCP - General 06/26/05 03/04/17 Michelle Norris MD [address] [place] [address] 26328 PCP - General Internal Medicine 03/05/17 03/16/21 [facility], Pcp [address] [place] [address] 94613 PCP - General Internal Medicine 03/17/21 05/04/21 Michelle Norris MD [address] [place] [address] 76206 PCP - General Internal Medicine 05/05/21 09/13/22 Rosetta Diamond MD [address] [place] [address] 01020 PCP - General Internal Medicine 09/14/22 documented as of this encounter
--- OUTSIDE RECORDS SUMMARY | 2024-12-04 11:12 | XMS_ITS | Encounter Summary ---
Author Organization [facility] Address [address] [place] [address] Care Team Providers Care Agricultural Research Technologist Name Role Phone Nikki Alcantar MD Primary Care Provider [phone] Michelle Norris MD Primary Care Provider Unavail [facility] Primary Care Provider [facility] Michelle Norris MD Primary Care Provider Unavail able Rosetta Diamond MD Primary Care Provider + Reason for Visit * Reason Onset Date Comments Call From Hospital 06/07/2016 Encounter Details Date Type Department Care Team Description 06/07/2016 Telephone Adult Medicine [address] [phone] Nikki Alcantar MD [address] [place] [address] [phone] Call From Hospital Social History Tobacco Use [...] Donavon Harvey - 06/07/2016 8:48 AM EDT [facility] Phsyc unit calling to inform us that patient was admitted to phsyc unit yesterday documented in this encounter Plan of Treatment Not on file documented as of this encounter Visit Diagnoses Not on filedocumented in this encounter Care Teams Agricultural Research Technologist Relationship Specialty Start Date End Date Nikki Alcantar MD [address] [place] [address] PCP - General 06/26/05 03/04/17 Michelle Norris MD [address] [place] [address] PCP - General Internal Medicine 03/05/17 03/16/21 [place] [address] PCP - General Internal Medicine 03/17/21 05/04/21 Michelle Norris MD [address] [place] [address] PCP - General Internal Medicine 05/05/21 09/13/22 Rosetta Diamond MD [address] [place], [place] [phone] PCP - General Internal Medicine 09/14/22 documented as of this encounter
--- OUTSIDE RECORDS SUMMARY | 2024-12-04 11:12 | XMS_ITS | Encounter Summary ---
Author Organization [facility] Address [address] [place] [address] Care Team Providers Care Shotweld Operator Name Role Phone Nikki Alcantar MD Primary Care Provider [phone] Michelle Norris MD Primary Care Provider Unavail able [facility] Norris MD Primary Care Provider Unavail able Rosetta Diamond MD Primary Care Provider + Reason for Visit * Reason Onset Date Comments Follow-up Appt Unavailable 12/08/2013 Encounter Details Date Type Department Care Team Description 12/08/2013 Telephone Adult Medicine [address] [phone] Nikki Alcantar MD [address] [place] [address] [phone] Follow-up Appt Unavailable Social History Tobacco Use Types Packs/Day Years [...] encounter Miscellaneous Notes * Telephone Encounter - Terrie Lion - 12/08/2013 1:35 PM EST FYI the pt is admitted on 12/06/2013 [facility] health unit documented in this encounter Plan of Treatment Not on file documented as of this encounter Visit Diagnoses Not on filedocumented in this encounter Care Teams Shotweld Operator Relationship Specialty Start Date End Date Nikki Alcantar MD [address] [place] [address] PCP - General 06/26/05 03/04/17 Michelle Norris MD [address] [place] [address] 43356 PCP - General Internal Medicine 03/05/17 03/16/21 [place] [address] PCP - General Internal Medicine 03/17/21 05/04/21 Michelle Norris MD [address] [place] [address] 65296 PCP - General Internal Medicine 05/05/21 09/13/22 Rosetta Diamond MD [address] [place], [place] [phone] PCP - General Internal Medicine 09/14/22 documented as of this encounter
--- OUTSIDE RECORDS SUMMARY | 2024-12-04 11:12 | XMS_ITS | Encounter Summary ---
Author Organization [facility] Address [address] [place] [address] Care Team Providers Care Sorter/Assay Tech Name Role Phone Nikki Alcantar MD Primary Care Provider [phone] Michelle Norris MD Primary Care Provider Unavail [facility] Primary Care Provider [facility] Michelle Norris MD Primary Care Provider Unavail [facility] Rosetta Diamond MD Primary Care Provider + Encounter Details Date Type Department Care Team Description 06/06/2016 Opener Report Medical Records [address] [place] [address] 61851 Chuck Dave MD Social History Tobacco Use [...] on filedocumented in this encounter Care Teams Sorter/Assay Tech Relationship Specialty Start Date End Date Nikki Alcantar MD [address] [place] [address] 73003 PCP - General 06/26/05 03/04/17 Michelle Norris MD [address] [place] [address] 83704 PCP - General Internal Medicine 03/05/17 03/16/21 [facility], Pcp [address] [place] [address] 57551 PCP - General Internal Medicine 03/17/21 05/04/21 Michelle Norris MD [address] [place] [address] 55491 PCP - General Internal Medicine 05/05/21 09/13/22 Rosetta Diamond MD [address] [place] [address] 01020 PCP - General Internal Medicine 09/14/22 documented as of this encounter
--- OUTSIDE RECORDS SUMMARY | 2024-12-04 11:12 | XMS_ITS | Encounter Summary ---
Author Organization [facility] Address [address] [place] [address] Care Team Providers Care Plate Furnace Operator Name Role Phone Nikki Alcantar MD Primary Care Provider [phone] Michelle Norris MD Primary Care Provider Unavail [facility] Primary Care Provider [facility] Michelle Norris MD Primary Care Provider Unavail [facility] Rosetta Diamond MD Primary Care Provider + Encounter Details Date Type Department Care Team Description 01/27/2014 Business Doc Medical Records [address] [place] [address] [id number] Abstract, Provider Social History Tobacco Use Types [...] on filedocumented in this encounter Care Teams Plate Furnace Operator Relationship Specialty Start Date End Date Nikki Alcantar MD [address] [place] [address] 19731 PCP - General 06/26/05 03/04/17 Michelle Norris MD [address] [place] [address] PCP - General Internal Medicine 03/05/17 03/16/21 [facility], Pcp [address] [place] [address] PCP - General Internal Medicine 03/17/21 05/04/21 Michelle Norris MD [address] [place], [place] [phone] PCP - General Internal Medicine 05/05/21 09/13/22 Rosetta Diamond MD [address] [place] [address] PCP - General Internal Medicine 09/14/22 documented as of this encounter
--- OUTSIDE RECORDS SUMMARY | 2024-12-04 11:12 | XMS_ITS | Encounter Summary ---
Author Organization [facility] Address [address] [place] [address] Care Team Providers Care Machine Records Units Supervisor Name Role Phone Nikki Alcantar MD Primary Care Provider [phone] Michelle Norris MD Primary Care Provider Unavail [facility] Primary Care Provider [facility] Michelle Norris MD Primary Care Provider [facility] Rosetta Diamond MD Primary Care Provider + Encounter Details Date Type Department Care Team Description 11/15/2010 Business Doc Medical Records [address] [place] [id number] Abstract, Provider Social History Tobacco Use Types [...] filedocumented in this encounter Care Teams Machine Records Units Supervisor Relationship Specialty Start Date End Date Nikki Alcantar MD [address] [place] [address] PCP - General 06/26/05 03/04/17 Michelle Norris MD [address] [place] [address] PCP - General Internal Medicine 03/05/17 03/16/21 [facility]cp [address] [place] [address] PCP - General Internal Medicine 03/17/21 05/04/21 Michelle Norris MD [address] [place] [address] PCP - General Internal Medicine 05/05/21 09/13/22 Rosetta Diamond MD [address] [place] [address] PCP - General Internal Medicine 09/14/22 documented as of this encounter
--- OUTSIDE RECORDS SUMMARY | 2024-12-04 11:12 | XMS_ITS | Encounter Summary ---
Author Organization [facility] Address [address] [place] [address] Care Team Providers Care Engine Builder Name Role Phone Michelle Norris MD Primary Care Provider Unavail able [facility], Pcp Primary [facility] Michelle Norris MD Primary Care Provider Unavail able Rosetta Diamond MD Primary Care Provider + Encounter Details Date Type Department Care Team Description 08/09/2019 Old Medical Records Medical Records [address] [place] [address] Abstract, Provider Social History Tobacco Use Types [...] on filedocumented in this encounter Care Teams Engine Builder Relationship Specialty Start Date End Date Michelle Norris MD PCP - General Internal Medicine 03/05/17 03/16/21 [facility], Pcp PCP - General Internal Medicine 03/17/21 05/04/21 Michelle Norris MD PCP - General Internal Medicine 05/05/21 09/13/22 Rosetta Diamond MD [address] [place] [address] PCP - General Internal Medicine 09/14/22 documented as of this encounter
--- OUTSIDE RECORDS SUMMARY | 2024-12-04 11:12 | XMS_ITS | Encounter Summary ---
Author Organization [facility] Address [address] [place] [address] Care Team Providers Care Club Former Name Role Phone Nikki Alcantar MD Primary Care Provider [phone] Michelle Norris MD Primary Care Provider Unavail [facility] Primary Care Provider [facility] Michelle Norris MD Primary Care Provider Unavail [facility] Rosetta Diamond MD Primary Care Provider + Encounter Details Date Type Department Care Team Description 10/05/2010 Hospital Medical Records [address] [place] [address] Ebony Pacheco Social History Tobacco Use Types Packs/Day Years [...] on filedocumented in this encounter Care Teams Club Former Relationship Specialty Start Date End Date Nikki Alcantar MD [address] [place] [address] 80885 PCP - General 06/26/05 03/04/17 Michelle Norris MD [address] [place] [address] 00042 PCP - General Internal Medicine 03/05/17 03/16/21 [facility], Pcp [address] [place] [address] 70111 PCP - General Internal Medicine 03/17/21 05/04/21 Michelle Norris MD [address] [place] [address] 39097 PCP - General Internal Medicine 05/05/21 09/13/22 Rosetta Diamond MD [address] [place] [address] PCP - General Internal Medicine 09/14/22 documented as of this encounter
--- OUTSIDE RECORDS SUMMARY | 2024-12-04 11:13 | XMS_ITS | Encounter Summary ---
Author Organization [facility] Address [address] [place] [address] Care Team Providers Care Ceramics Artist Name Role Phone Michelle Norris MD Primary Care Provider Unavail able [facility], Pcp [facility] Michelle aLgos MD Primary Care Provider Unavail able Rosetta Diamond MD Primary Care Provider + Reason for Visit * Reason Onset Date Comments Faxed Order 11/12/2019 Encounter Details Date Type Department Care Team Description 11/12/2019 Telephone Adult [address] [address] Michelle Norris MD Faxed Order Social History [...] encounter Miscellaneous Notes * Telephone Encounter - Katharine Bazan - 11/12/2019 10:37 AM EST Faxed orders received from [facility], please sign and fax back to [phone]. documented in this encounter Plan of Treatment Not on file documented as of this encounter Visit Diagnoses Not on filedocumented in this encounter Care Teams Ceramics Artist Relationship Specialty Start Date End Date Michelle Norris MD PCP - General Internal Medicine 03/05/17 03/16/21 [facility], Pcp PCP - General Internal Medicine 03/17/21 05/04/21 Michelle Norris MD PCP - General Internal Medicine 05/05/21 09/13/22 Rosetta Diamond MD [address] [place] [address] PCP - General Internal Medicine 09/14/22 documented as of this encounter
--- OUTSIDE RECORDS SUMMARY | 2024-12-04 11:13 | XMS_ITS | Encounter Summary ---
Author Organization [facility] Address [address] [place] [address] Care Team Providers Care Md Urologist Name Role Phone Nikki Alcantar MD Primary Care Provider [phone] Michelle Norris MD Primary Care Provider Unavail [facility] Primary Care Provider [facility] Michelle Norris MD Primary Care Provider Unavail [facility] Rosetta Diamond MD Primary Care Provider + Encounter Details Date Type Department Care Team Description 11/28/2012 Dual Rate Dealer Report Medical Records [address] [place] [address] Julio Paredes MD Social History Tobacco Use [...] on filedocumented in this encounter Care Teams Md Urologist Relationship Specialty Start Date End Date Nikki Alcantar MD [address] [place] [address] PCP - General 06/26/05 03/04/17 Michelle Norris MD [address] [place] [address] PCP - General Internal Medicine 03/05/17 03/16/21 [facility], Pcp [address] [place] [address] PCP - General Internal Medicine 03/17/21 05/04/21 Michelle Norris MD [address] [place] [address] [place] [address] PCP - General Internal Medicine 05/05/21 09/13/22 Rosetta Diamond MD [address] [place], [place] [phone] PCP - General Internal Medicine 09/14/22 documented as of this encounter
--- OUTSIDE RECORDS SUMMARY | 2024-12-04 11:13 | XMS_ITS | Encounter Summary ---
Author Organization [facility] Address [address] [place] [address] Care Team Providers Care Client Services Analyst Name Role Phone Nikki Alcantar MD Primary Care Provider [phone] Michelle Norris MD Primary Care Provider Unavail able [facility] Michelle Norris MD Primary Care Provider Unavail able Rosetta Diamond MD Primary Care Provider + Reason for Visit * Reason Onset Date Comments VNA Call 09/05/2016 Encounter Details Date Type Department Care Team Description 09/05/2016 Telephone Adult Medicine [address] [phone] Nikki Alcantar MD [address] [place] [address] [phone] VNA Call Social History Tobacco Use Types [...] filedocumented in this encounter Care Teams Client Services Analyst Relationship Specialty Start Date End Date Nikki Alcantar MD [address] [place] [address] PCP - General 06/26/05 03/04/17 Michelle Norris MD [address] [place] [address] PCP - General Internal Medicine 03/05/17 03/16/21 [place] [address] PCP - General Internal Medicine 03/17/21 05/04/21 Michelle Norris MD [address] [place] [address] PCP - General Internal Medicine 05/05/21 09/13/22 Rosetta Diamond MD [address] [place] [address] PCP - General Internal Medicine 09/14/22 documented as of this encounter
--- OUTSIDE RECORDS SUMMARY | 2024-12-04 11:13 | XMS_ITS | Encounter Summary ---
Author Organization [facility] Address [address] [place] [address] Care Team Providers Care Computer Customer Support Specialist Name Role Phone Nikki Alcantar MD Primary Care Provider Michelle Norris MD Primary Care Provider Unavail [facility] Primary Care Provider [facility] Michelle Norris MD Primary Care Provider Unavail [facility] Rosetta Diamond MD Primary Care Provider + Encounter Details Date Type Department Care Team Description 09/25/2016 Hospital Medical Records [address] [place] [address]13 Abstract, Provider Social History Tobacco Use Types [...] on filedocumented in this encounter Care Teams Computer Customer Support Specialist Relationship Specialty Start Date End Date Nikki Alcantar MD [address] [place] [address] PCP - General 06/26/05 03/04/17 Michelle Norris MD [address] [place] [address] PCP - General Internal Medicine 03/05/17 03/16/21 [facility], Pcp [address] [place] [address] PCP - General Internal Medicine 03/17/21 05/04/21 Michelle Norris MD [address] [place] [address] PCP - General Internal Medicine 05/05/21 09/13/22 Rosetta Diamond MD [address] [place], [place] [phone] PCP - General Internal Medicine 09/14/22 documented as of this encounter
--- OUTSIDE RECORDS SUMMARY | 2024-12-04 11:13 | XMS_ITS | Encounter Summary ---
Author Organization [facility] Address [address] [place] [address] Care Team Providers Care Environmental Services Floor Tech Name Role Phone Nikki Alcantar MD Primary Care Provider [phone] Michelle Norris MD Primary Care Provider Unavail [facility] Primary Care Provider [facility] Michelle Norris MD Primary Care Provider Unavail [facility] Rosetta Diamond MD Primary Care Provider + Encounter Details Date Type Department Care Team Description 09/06/2016 Home Health Certification Medical Records [address] [place] [address] Social History Tobacco Use Types Packs/Day Years [...] filedocumented in this encounter Care Teams Environmental Services Floor Tech Relationship Specialty Start Date End Date Nikki Alcantar MD [address] [place] [address] PCP - General 06/26/05 03/04/17 Michelle Norris MD [address] [place] [address] 94[address] PCP - General Internal Medicine 03/05/17 03/16/21 [facility], Pcp [address] [place] [address] 24[address] PCP - General Internal Medicine 03/17/21 05/04/21 Michelle Norris MD [address] [place] [address] PCP - General Internal Medicine 05/05/21 09/13/22 Rosetta Diamond MD [address] [place], [place] [phone] PCP - General Internal Medicine 09/14/22 documented as of this encounter
--- OUTSIDE RECORDS SUMMARY | 2024-12-04 11:13 | XMS_ITS | Encounter Summary ---
Author Organization [facility] Address [address] [place] [address] Care Team Providers Care Cloth Measurer Machine Name Role Phone Nikki Alcantar MD Primary Care Provider [phone] Michelle Norris MD Primary Care Provider Unavail [facility] Primary Care Provider [facility] Michelle Norris MD Primary Care Provider Unavail [facility] Rosetta Diamond MD Primary Care Provider + Encounter Details Date Type Department Care Team Description 12/13/2012 Hospital Medical Records [address] [place] [address] Mar[place] Social History Tobacco Use Types [...] on filedocumented in this encounter Care Teams Cloth Measurer Machine Relationship Specialty Start Date End Date Nikki Alcantar MD [address] [place] [address] PCP - General 06/26/05 03/04/17 Michelle Norris MD [address] [place] [address] PCP - General Internal Medicine 03/05/17 03/16/21 [facility], Pcp [address] [place] [address] 09242 PCP - General Internal Medicine 03/17/21 05/04/21 Michelle Norris MD [address] [place] [address] PCP - General Internal Medicine 05/05/21 09/13/22 Rosetta Diamond MD [address] [place] [address] PCP - General Internal Medicine 09/14/22 documented as of this encounter
--- OUTSIDE RECORDS SUMMARY | 2024-12-04 11:13 | XMS_ITS | Encounter Summary ---
Author Organization [facility] Address [address] [place] [address] Care Team Providers Care Environmental Geologist Name Role Phone Michelle Norris MD Primary Care Provider Unavail able [facility], Pcp Primary Care [facility] Michelle Lagos MD Primary Care Provider Unavail able Rosetta Diamond MD Primary Care Provider + Reason for Visit * Reason Onset Date Comments Faxed Order 09/19/2019 Encounter Details Date Type Department Care Team Description 09/19/2019 Telephone Adult [address] [address] Michelle Norris MD Faxed Order Social History [...] * Telephone Encounter - Katharine Bazan - 09/19/2019 11:19 AM EST Faxed orders received from [facility], please sign and fax back to [phone]. documented in this encounter Plan of Treatment Not on file documented as of this encounter Visit Diagnoses Not on filedocumented in this encounter Care Teams Environmental Geologist Relationship Specialty Start Date End Date Michelle Norris MD PCP - General Internal Medicine 03/05/17 03/16/21 [facility], Pcp PCP - General Internal Medicine 03/17/21 05/04/21 Michelle Norris MD PCP - General Internal Medicine 05/05/21 09/13/22 Rosetta Diamond MD [address] [place] [address] PCP - General Internal Medicine 09/14/22 documented as of this encounter
--- OUTSIDE RECORDS SUMMARY | 2024-12-04 11:13 | XMS_ITS | Encounter Summary ---
Author Organization [facility] Address [address] [place] [address] Care Team Providers Care Principal Cyber Engineer Name Role Phone Nikki Alcantar MD Primary Care Provider [phone] Michelle Norris MD Primary Care Provider Unavail able [facility] Primary Care Provider [facility] Michelle Norris MD Primary Care Provider Unavail [facility] Rosetta Diamond MD Primary Care Provider + Encounter Details Date Type Department Care Team Description 08/27/2016 Underwear Finisher Report Medical Records [address] [place] [address] Francis Booth I., PH.D Social History Tobacco [...] on filedocumented in this encounter Care Teams Principal Cyber Engineer Relationship Specialty Start Date End Date Nikki Alcantar MD [address] [place] [address] PCP - General 06/26/05 03/04/17 Michelle Norris MD [address] [place] [address] PCP - General Internal Medicine 03/05/17 03/16/21 [facility], Pcp [address] [place] [address] PCP - General Internal Medicine 03/17/21 05/04/21 Michelle Norris MD [address] [place] [address] 92281 PCP - General Internal Medicine 05/05/21 09/13/22 Rosetta Diamond MD [address] [place] [address] PCP - General Internal Medicine 09/14/22 documented as of this encounter
--- OUTSIDE RECORDS SUMMARY | 2024-12-04 11:13 | XMS_ITS | Encounter Summary ---
Author Organization [facility] Address [address] [place] [address] Care Team Providers Care Freelance Photographer Name Role Phone Nikki Alcantar MD Primary Care Provider [phone] Michelle Norris MD Primary Care Provider Unavail able [facility] Primary Care Provider [facility] Michelle Norris MD Primary Care Provider Unavail able Rosetta Diamond MD Primary Care Provider + Reason for Visit * Reason Onset Date Comments VNA Call 08/18/2016 Encounter Details Date Type Department Care Team Description 08/18/2016 Telephone Adult Medicine [address] [phone] Nikki Alcantar MD [address] [place] [address] [phone] VNA Call Social History Tobacco Use Types [...] for FYI. * Telephone Encounter - Terrie Loin - 08/18/2016 2:54 PM EDT VNA CALL [...] on filedocumented in this encounter Care Teams Freelance Photographer Relationship Specialty Start Date End Date Nikki Alcantar MD [address] [place] [address] PCP - General 06/26/05 03/04/17 Michelle Norris MD [address] [place], [place] [phone] PCP - General Internal Medicine 03/05/17 03/16/21 [place] [address] PCP - General Internal Medicine 03/17/21 05/04/21 Michelle Norris MD [address] [place] [address] PCP - General Internal Medicine 05/05/21 09/13/22 Rosetta Diamond MD [address] [place] [address] PCP - General Internal Medicine 09/14/22 documented as of this encounter
--- OUTSIDE RECORDS SUMMARY | 2024-12-04 11:13 | XMS_ITS | Encounter Summary ---
Author Organization [facility] Address [address] [place] [address] Care Team Providers Care Transportation Manager Name Role Phone Nikki Alcantar MD Primary Care Provider [phone] Michelle Norris MD Primary Care Provider Unavail able [facility], [facility] Primary Care [facility] Michelle Norris MD Primary Care Provider Unavail able Rosetta Diamond MD Primary Care Provider + Reason for Visit * Reason Onset Date Comments VNA Call 08/29/2016 Encounter Details Date Type Department Care Team Description 08/29/2016 Telephone Adult Medicine [facility] [address] [place] [address] [phone] Nikki Alcantar MD [address] [place] [address] [phone] VNA Call Social History Tobacco Use Types [...] * Telephone Encounter - Darcy Nicole - 08/30/2016 1:21 PM EST Spoke with Maribel the nurse from [facility] who is calling to notify Nikki Alcantar that Pt's wound care orders are going to 2x a week. Verbal order given for [place] Honey dressing by Dr. Vigil (in absence of Dr. Alcantar) on 11/10/16. Pt has an appt with Dr. Alcantar tomorrow at 10:30 for hosp f/u. Forward to Dr. Alcantar as FYI. * Telephone Encounter - Narda Chavarria - 08/30/2016 12:22 PM EST Radha calling back, states that they will be decreasing the patient's wound care orders to 2x a week, and also will have to pay out of pocket for wound care supplies because they can not wait for the pcp to sign orders tomorrow number to be reached at is [phone] * Telephone Encounter - Darcy Nicole - 08/29/2016 1:16 PM EST Phone call returned, line is busy. * Telephone Encounter - Kaci Olson - 08/29/2016 1:03 PM EST VNA CALL Which [facility] office is calling? [facility] Full name of caller: Radha The caller is A nurse Is the caller at the patients home?: NO Reason for call: woud like to inform Dr. Alcantar that [facility] has faxed Dr. Alcantar orders to be signedfor treat a wound in patients abdominal wound. Please advise. Needs supplies to address this wound. Does caller need an urgent call back? NO Was CONTACT Telephone # obtained above?: YES Fax #: documented in this encounter Plan of Treatment Not on file documented as of this encounter Visit Diagnoses Not on filedocumented in this encounter Care Teams Transportation Manager Relationship Specialty Start Date End Date Nikki Alcantar MD [address] [place] [address] PCP - General 06/26/05 03/04/17 Michelle Norris MD [address] [place] [address]78 PCP - General Internal Medicine 03/05/17 03/16/21 [facility], Pcp [address] [place] [address] PCP - General Internal Medicine 03/17/21 05/04/21 Michelle Norris MD [address] [place], [place] [phone] PCP - General Internal Medicine 05/05/21 09/13/22 Rosetta Diamond MD [address] [place] [address] PCP - General Internal Medicine 09/14/22 documented as of this encounter
--- OUTSIDE RECORDS SUMMARY | 2024-12-04 11:13 | XMS_ITS | Encounter Summary ---
Author Organization [facility] Address [address] [place] [address] Care Team Providers Care Financial Services Associate Name Role Phone Nikki Alcantar MD Primary Care Provider [phone] Michelle Norris MD Primary Care Provider Unavail able [facility], [facility] Michelle Norris MD Primary Care Provider Unavail able Rosetta Diamond MD Primary Care Provider + Reason for Visit * Reason Onset Date Comments Call From Hospital 10/04/2016 Encounter Details Date Type Department Care Team Description 10/04/2016 Telephone Adult Medicine [address] [phone] Nikki Alcantar MD [address] [place] [address] [phone] Call From Hospital Social History Tobacco Use [...] * Telephone Encounter - Donavon Harvey - 10/04/2016 9:12 AM EST Pat form [facility] calling [facility] let us [facility] documented in this encounter Plan of Treatment Not on file documented as of this encounter Visit Diagnoses Not on filedocumented in this encounter Care Teams Financial Services Associate Relationship Specialty Start Date End Date Nikki Alcantar MD [address] [place] [address] PCP - General 06/26/05 03/04/17 Michelle Norris MD [address] [place] [address] PCP - General Internal Medicine 03/05/17 03/16/21 [place] [phone] PCP - General Internal Medicine 03/17/21 05/04/21 Michelle Norris MD [address] [place] [address] PCP - General Internal Medicine 05/05/21 09/13/22 Rosetta Diamond MD [address] [place], [place] [phone] PCP - General Internal Medicine 09/14/22 documented as of this encounter
--- OUTSIDE RECORDS SUMMARY | 2024-12-04 11:13 | XMS_ITS | Encounter Summary ---
Author Organization [facility] Address [address] [place] [address] Care Team Providers Care Museum Technician Name Role Phone Nikki Alcantar MD Primary Care Provider [phone] Michelle Norris MD Primary Care Provider Unavail [facility] Primary Care Provider [facility] Michelle Norris MD Primary Care Provider Unavail [facility] Rosetta Diamond MD Primary Care Provider + Encounter Details Date Type Department Care Team Description 09/22/2016 Hospital Medical Records [address] [place] [address] Angelique Moore Social History Tobacco Use Types [...] on filedocumented in this encounter Care Teams Museum Technician Relationship Specialty Start Date End Date Nikki Alcantar MD [address] [place] [address] PCP - General 06/26/05 03/04/17 Michelle Norris MD [address] [place] [address] PCP - General Internal Medicine 03/05/17 03/16/21 [facility] Pcp [address] [place] [address] PCP - General Internal Medicine 03/17/21 05/04/21 Michelle Norris MD [address] [place] [address] [place] [address] PCP - General Internal Medicine 05/05/21 09/13/22 Rosetta Diamond MD [address] [place], [place] [phone] PCP - General Internal Medicine 09/14/22 documented as of this encounter
--- OUTSIDE RECORDS SUMMARY | 2024-12-04 11:13 | XMS_ITS | Encounter Summary ---
Author Organization [facility] Address [address] [place] [address] Care Team Providers Care Rn Unit Manager Name Role Phone Nikki Alcantar MD Primary Care Provider Michelle Norris MD Primary Care Provider Unavail able [facility] MD Primary Care Provider Unavail able Rosetta Diamond MD Primary Care Provider + Reason for Visit * Reason Onset Date Comments Faxed Order 08/28/2016 Encounter Details Date Type Department Care Team Description 08/28/2016 Telephone Adult Medicine [address] [id number] Nikki Alcantar MD [address] [place] [address] [phone] Faxed Order Social History Tobacco Use Types [...] encounter Miscellaneous Notes * Telephone Encounter - Megan Newton - 08/28/2016 3:49 PM EST Faxed order for medical resources documented in this encounter Plan of Treatment Not on file documented as of this encounter Visit Diagnoses Not on filedocumented in this encounter Care Teams Rn Unit Manager Relationship Specialty Start Date End Date Nikki Alcatnar MD [address] [place] [address] PCP - General 06/26/05 03/04/17 Michelle Norris MD [address] [place] [address] PCP - General Internal Medicine 03/05/17 03/16/21 [place] [address] PCP - General Internal Medicine 03/17/21 05/04/21 Michelle Norris MD [address] [place] [address] PCP - General Internal Medicine 05/05/21 09/13/22 Rosetta Diamond MD [address] [place] [address] PCP - General Internal Medicine 09/14/22 documented as of this encounter
--- OUTSIDE RECORDS SUMMARY | 2024-12-04 11:13 | XMS_ITS | Encounter Summary ---
Author Organization [facility] Address [address] [place] [address] Care Team Providers Care Product Trainer Name Role Phone Michelle Norris MD Primary Care Provider Unavail able [facility], [facility] Michelle Lagos MD Primary Care Provider Unavail able Rosetta Diamond MD Primary Care Provider + Reason for Visit * Reason Onset Date Comments refill request 10/23/2019 lisinopril (PRIN IVIL,ZESTRIL) 5 MG tablet Encounter Details Date Type Department Care Team Description 10/23/2019 Refill Adult Medicine [address] [address] Michelle Norris MD refill request (lisinopril (PRINIVIL,ZESTRIL) [...] / [place] / Product Type: MEDICARE [id number] documented in this encounter Plan of Treatment Not on file documented as of this encounter Visit Diagnoses Not on filedocumented in this encounter Care Teams Product Trainer Relationship Specialty Start Date End Date Michelle Norris MD PCP - General Internal Medicine 03/05/17 03/16/21 [facility], Pcp PCP - General Internal Medicine 03/17/21 05/04/21 Michelle Norris MD PCP - General Internal Medicine 05/05/21 09/13/22 Rosetta Diamond MD [address] [place] [address] PCP - General Internal Medicine 09/14/22 documented as of this encounter
--- OUTSIDE RECORDS SUMMARY | 2024-12-04 11:13 | XMS_ITS | Encounter Summary ---
Author Organization [facility] Address [address] [place] [address] Care Team Providers Care Associate Professor Of Library Media Name Role Phone Nikki Alcantar MD Primary Care Provider [phone] Michelle Norris MD Primary Care Provider Unavail [facility] Primary Care Provider [facility] Michelle Norris MD Primary Care Provider Unavail [facility] Rosetta Diamond MD Primary Care Provider + Encounter Details Date Type Department Care Team Description 10/19/2016 Hospital Medical Records [address] [place] [id number] Sourav Lucas Social History Tobacco Use Types [...] on filedocumented in this encounter Care Teams Associate Professor Of Library Media Relationship Specialty Start Date End Date Nikki Alcantar MD [address] [place] [address] PCP - General 06/26/05 03/04/17 Michelle Norris MD [address] [place] [address] PCP - General Internal Medicine 03/05/17 03/16/21 [facility], Pcp [address] [place] [address] PCP - General Internal Medicine 03/17/21 05/04/21 Michelle Norris MD [address] [place] [address] [place] [address] PCP - General Internal Medicine 05/05/21 09/13/22 Rosetta Diamond MD [address] [place], [place] [phone] PCP - General Internal Medicine 09/14/22 documented as of this encounter
--- OUTSIDE RECORDS SUMMARY | 2024-12-04 11:14 | XMS_ITS | Encounter Summary ---
Author Organization [facility] Address [address] [place] [address] Care Team Providers Care Dust Handler Name Role Phone Nikki Alcantar MD Primary Care Provider [phone] Michelle Norris MD Primary Care Provider Unavail [facility] Primary Care Provider [facility] Michelle Norris MD Primary Care Provider [facility] Rosetta Diamond MD Primary Care Provider + Encounter Details Date Type Department Care Team Description 01/19/2017 Business Doc Medical Records [address] [place] [id number] Abstract, Provider Social History Tobacco Use Types [...] on filedocumented in this encounter Care Teams Dust Handler Relationship Specialty Start Date End Date Nikki Alcantar MD [address] [place] [address] PCP - General 06/26/05 03/04/17 Michelle Norris MD [address] [place] [address] PCP - General Internal Medicine 03/05/17 03/16/21 [facility], Pcp [address] [place] [address] PCP - General Internal Medicine 03/17/21 05/04/21 Michelle Norris MD [address] [place] [address] [place] [address] PCP - General Internal Medicine 05/05/21 09/13/22 Rosetta Diamond MD [address] [place], [place] [phone] PCP - General Internal Medicine 09/14/22 documented as of this encounter
--- OUTSIDE RECORDS SUMMARY | 2024-12-04 11:14 | XMS_ITS | Encounter Summary ---
Author Organization [facility] Address [address] [place] [address] Care Team Providers Care Tower Crane Operator Name Role Phone Nikki Alcantar MD Primary Care Provider [phone] Michelle Norris MD Primary Care Provider Unavail [facility] Primary Care Provider [facility] Michelle Norris MD Primary Care Provider Unavail [facility] Rosetta Diamond MD Primary Care Provider + Encounter Details Date Type Department Care Team Description 12/31/2012 Hospital Medical Records [address] [place] [phone] Sourav Lucas Social History Tobacco Use Types [...] on filedocumented in this encounter Care Teams Tower Crane Operator Relationship Specialty Start Date End Date Nikki Alcantar MD [address] [place] [address] PCP - General 06/26/05 03/04/17 Michelle Norris MD [address] [place] [address] PCP - General Internal Medicine 03/05/17 03/16/21 [facility], Pcp [address] [place] [address] PCP - General Internal Medicine 03/17/21 05/04/21 Michelle Norris MD [address] [place] [address] [place] [address] PCP - General Internal Medicine 05/05/21 09/13/22 Rosetta Diamond MD [address] [place], [place] [phone] PCP - General Internal Medicine 09/14/22 documented as of this encounter
--- OUTSIDE RECORDS SUMMARY | 2024-12-04 11:14 | XMS_ITS | Encounter Summary ---
Author Organization [facility] Address [address] [place] [address] Care Team Providers Care Dressmaker Helper Name Role Phone Nikki Alcantar MD Primary Care Provider [phone] Michelle Norris MD Primary Care Provider Unavail [facility] Primary Care Provider [facility] Michelle Norris MD Primary Care Provider Unavail [facility] Rosetta Diamond MD Primary Care Provider + Encounter Details Date Type Department Care Team Description 05/21/2009 Hospital Medical Records [address] [place] [phone] Zay Puri Social History Tobacco Use Types Packs/Day Years [...] on filedocumented in this encounter Care Teams Dressmaker Helper Relationship Specialty Start Date End Date Nikki Alcantar MD [address] [place] [address] PCP - General 06/26/05 03/04/17 Michelle Norris MD [address] [place] [address] PCP - General Internal Medicine 03/05/17 03/16/21 [facility], Pcp [address] [place] [address] PCP - General Internal Medicine 03/17/21 05/04/21 Michelle Norris MD [address] [place] [address] [place] [address] PCP - General Internal Medicine 05/05/21 09/13/22 Rosetta Diamond MD [address] [place], [place] [phone] PCP - General Internal Medicine 09/14/22 documented as of this encounter
--- OUTSIDE RECORDS SUMMARY | 2024-12-04 11:14 | XMS_ITS | Encounter Summary ---
Author Organization [facility] Address [address] [place] [address] Care Team Providers Care Stock Mover Name Role Phone Nikki Alcantar MD Primary Care Provider [phone] Michelle Norris MD Primary Care Provider Unavail [facility] Primary Care Provider [facility] Michelle Norris MD Primary Care Provider Unavail [facility] Rosetta Diamond MD Primary Care Provider + Encounter Details Date Type Department Care Team Description 05/22/2009 Hospital Medical Records [address] [place] [id number] Shelly Espana MD Social History Tobacco Use [...] on filedocumented in this encounter Care Teams Stock Mover Relationship Specialty Start Date End Date Nikki Alcantar MD [address] [place] [address] PCP - General 06/26/05 03/04/17 Michelle Norris MD [address] [place] [address] PCP - General Internal Medicine 03/05/17 03/16/21 [facility], Pcp [address] [place] [address] PCP - General Internal Medicine 03/17/21 05/04/21 Michelle Norris MD [address] [place] [address] [place] [address] PCP - General Internal Medicine 05/05/21 09/13/22 Rosetta Diamond MD [address] [place], [place] [phone] PCP - General Internal Medicine 09/14/22 documented as of this encounter
--- OUTSIDE RECORDS SUMMARY | 2024-12-04 11:14 | XMS_ITS | Encounter Summary ---
Author Organization [facility] Address [address] [place] [address] Care Team Providers Care Report Writer Name Role Phone Nikki Alcantar MD Primary Care Provider [phone] Michelle Norris MD Primary Care Provider Unavail able [facility] Michelle Norris MD Primary Care Provider Unavail able Rosetta Diamond MD Primary Care Provider + Reason for Visit * Reason Onset Date Comments refill request 01/25/2017 Encounter Details Date Type Department Care Team Description 01/25/2017 Refill Adult Medicine [address] [phone] Nikki Alcantar MD [address] [place] [address] [phone] refill request Social History Tobacco Use Types [...] / [place] / Product Type: MEDICARE [id number] documented in this encounter Plan of Treatment Not on file documented as of this encounter Visit Diagnoses Not on filedocumented in this encounter Care Teams Report Writer Relationship Specialty Start Date End Date Nikki Alcantar MD [address] [place] [address] PCP - General 06/26/05 03/04/17 Michelle Norris MD [address] [place] [address] PCP - General Internal Medicine 03/05/17 03/16/21 [place] [address] PCP - General Internal Medicine 03/17/21 05/04/21 Michelle Norris MD [address] [place] [address] PCP - General Internal Medicine 05/05/21 09/13/22 Rosetta Diamond MD [address] [place] [address] PCP - General Internal Medicine 09/14/22 documented as of this encounter
--- OUTSIDE RECORDS SUMMARY | 2024-12-04 11:14 | XMS_ITS | Encounter Summary ---
Author Organization [facility] Address [address] [place] [address] Care Team Providers Care Senior Quality Assurance Engineer Name Role Phone Nikki Alcantar MD Primary Care Provider [phone] Michelle Norris MD Primary Care Provider Unavail able [facility] Primary Care Provider [facility] Michelle Norris MD Primary Care Provider Unavail able Rosetta Diamond MD Primary Care Provider + Reason for Visit * Reason Onset Date Comments Faxed Refill 02/01/2017 Encounter Details Date Type Department Care Team Description 02/01/2017 Refill Adult Medicine [address] [phone] Nikki Alcantar MD [address] [place] [address] [phone] Faxed Refill Social History Tobacco Use Types [...] REQUESTED IS ON THE MED LIST ABOVE) SENIOR LIVING PLUCK SEPARATOR WILL BRING PATIENT IN FOR LABS All of the medications requested were on the CURRENT MEDS list Did you check the Pharmacy information above?: YES Patient wants: 30 -day supply Is this a mail order prescription request ? NO Patients current insurance carrier is: [place] / [place] / Product Type: MEDICARE [id number] documented in this encounter Plan of Treatment Not on file documented as of this encounter Visit Diagnoses Not on filedocumented in this encounter Care Teams Senior Quality Assurance Engineer Relationship Specialty Start Date End Date Nikki Alcantar MD [address] [place] [address] PCP - General 06/26/05 03/04/17 Michelle Norris MD [address] [place] [address] PCP - General Internal Medicine 03/05/17 03/16/21 [facility], Pcp [address] [place] [address] PCP - General Internal Medicine 03/17/21 05/04/21 Michelle Norris MD [address] [place] [address] PCP - General Internal Medicine 05/05/21 09/13/22 Rosetta Diamond MD [address] [place] [address] PCP - General Internal Medicine 09/14/22 documented as of this encounter
== END 2024-12-04 10:08 | disposition home or self-care (01) ==
LOC: HO.LABR 10:07
PROVIDERS: Visit Provider Psychiatry & Neurology Psychiatry
DX: Z79.899 Other long term (current) drug therapy (principal)
CPT/HCPCS: 36415; 85025

== ENCOUNTER 2024-12-07 01:21 | Emergency (ER) | payer MEDICARE, MEDICAID, SELFPAY ==
[2024-12-07 01:30] VITALS: BP 138/93; PULSE 115; RESP 18; TEMP 37.2; O2SAT 95; BMI 36.6
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
--- NOTE | 2024-12-07 01:44 | ED.PSYCH ---
HPI - Psych General Chief Complaint: Psychiatric Symptoms Stated Complaint: [facility]: hearing voices telling pt to self harm Time Seen by Provider: 12/07/24 01:23 Source: patient and EMS Mode of arrival: EMS Limitations: no limitations History of Present Illness ED Provider: Dr. Eileen Ryan HPI Narrative: patient comes to the emergency room via ambulance from her [facility]. Patient states that she has been hearing voices. Patient denies hurting herself in any way prior to arrival. Patient denies SI or HI Related Data Home Medications ?Medication ?Instructions ?Recorded ?Confirmed albuterol sulfate 90 mcg/actuation 2 puff inhalation Q6H PRN Wheezing 06/24/24 12/07/24 aerosol inhaler amlodipine 5 mg tablet 5 mg PO DAILY 06/24/24 12/07/24 atorvastatin 10 mg tablet 10 mg PO DAILY 06/24/24 12/07/24 buspirone 10 mg tablet 10 mg PO BID 06/24/24 12/07/24 clozapine 100 mg tablet 100 mg PO BEDTIME 06/24/24 12/07/24 fluoxetine 40 mg capsule 80 mg PO DAILY 06/24/24 12/07/24 fluphenazine HCl 5 mg tablet 15 mg PO BID 06/24/24 12/07/24 montelukast 10 mg tablet 10 mg PO BEDTIME 06/24/24 12/07/24 pantoprazole 20 mg tablet,delayed 40 mg PO BID 06/24/24 12/07/24 release prazosin 2 mg capsule 4 mg PO BEDTIME 06/24/24 12/07/24 metformin 500 mg tablet 500 mg PO BID 07/15/24 12/07/24 famotidine 20 mg tablet 10 mg PO TIDWM 10/01/24 12/07/24 ferrous sulfate 325 mg (65 mg 325 mg PO BID 10/01/24 12/07/24 iron) tablet fluticasone fur. 200 mcg-umeclid 1 ea inhalation DAILY 10/01/24 12/07/24 62.5 mcg-vilant 25 mcg inhalat.powder (Trelegy Ellipta) mirtazapine 15 mg tablet 15 mg PO BEDTIME 10/01/24 12/07/24 nicotine 21 mg/24 hr daily 1 patch topical DAILY PRN Nicotine 11/04/24 12/07/24 transdermal patch Cravings Previous Rx's ?Medication ?Instructions ?Recorded nystatin 100,000 unit/gram topical 1 appl topical BID #60 grams 09/25/24 powder temazepam 15 mg capsule 15 mg PO BEDTIME PRN if awake at 10/06/24 2AM 30 days #30 caps Allergies Allergy/AdvReac Type Severity Reaction Status Date / Time azithromycin [AZITHROMYCIN] Allergy Severe Rash Verified 12/07/24 01:33 Fish Containing Products Allergy Severe Anaphylaxis Verified 12/07/24 01:33 codeine [Codeine] Allergy Intermediate Rash Verified 12/07/24 01:33 Penicillins Allergy Intermediate Rash Verified 12/07/24 01:33 prednisone [Prednisone] Allergy Intermediate Rash Verified 12/07/24 01:33 Sulfa (Sulfonamide Allergy Intermediate Rash Verified 12/07/24 01:33 Antibiotics) [Sulfa (Sulfonamides)] ziprasidone [From Geodon] Allergy Intermediate dysuria, Verified 12/07/24 01:33 rash lithium Allergy Unknown Rash Verified 12/07/24 01:33 Review of Systems Review of Systems: Constitutional : No Weight loss, No Fever, No Chills, No Night Sweats, No Fatigue, No Malaise ENT/Mouth : No Hearing loss, No Ear Pain, No Nasal Congestion, No Sinus Pain, No Hoarseness, No sore throat, No Rhinorrhea, No Swallowing Difficulty Eyes: No Eye Pain, No Swelling, No Redness, No Foreign Body, No Discharge, No Vision Changes Cardiovascular : No Chest Pain, No SOB, No Dyspnea on Exertion, No Orthopnea, No Edema, No Palpitations Respiratory : No Cough, No Sputum, No Wheezing, No Smoke Exposure, No Dyspnea Gastrointestinal : No Nausea, No Vomiting, No Diarrhea, No Constipation, No abdominal Pain, No Hematochezia, No Melena Genitourinary : no irregular bleeding, No Dysuria, No Urinary Frequency, No Hematuria, No Urinary Incontinence, No Urgency, No Flank Pain, No Urinary Flow Changes, No Hesitancy Musculoskeletal : No joint pain, No Myalgias, No Joint Swelling Skin : No Skin Lesions, No rash Neuro : No Weakness, No Numbness, No Paresthesias, No Loss of Consciousness, No Dizziness, No Headache Psych feels anxious, complaining of hearing voices, denies SI or HI Heme/Lymph: No Bruising, No Bleeding,No Lymphadenopathy Endocrine : No Polyuria, No Polydipsia, No Temperature Intolerance PMFSH Past Medical History Medical History Asthma Suicidal ideation MDD (major depressive disorder), recurrent episode, severe Chest pain Acute anxiety COVID-19 Full body hives Major depression Dizziness Suicide attempt UTI (urinary tract infection) Acetaminophen overdose COVID History of attempted suicide History of non-suicidal self-harm Hypomagnesemia Suicide attempt Suicide attempt by acetaminophen overdose Acetaminophen overdose Depression Diabetes type 2, controlled Borderline personality disorder PTSD (post-traumatic stress disorder) Overdose GERD (gastroesophageal reflux disease) Mood disorder Hyperlipidemia Bronchitis Social History Social History Household Members: Other Household Members Other:: [facility] members Housing: Other Housing Other:: [facility] Do you presently have visiting nurse or other home services: No Unable to assess alcohol history related to: Unknown Alcohol intake: never Comment: sitter in room Patient Tobacco Use Status: Current everyday Tobacco user Tobacco use type: Cigarette Cigarette Packs Per Day: 1 Cigarettes Per Day: 20.0 Years Smoked: 10 e-Cigarette/Vaping Use: Never Used Second Hand Smoke Exposure: No Substance Use Type: Caffiene Advance Directives: No Advance Directives Information Provided: Yes Do you have a plan to hurt others: No Plan service: No Current occupational status: unemployed and disabled Sexual orientation: Straight/Heterosexual Physical Exam Vital Signs: Vital Signs: Last Vital Signs Temp 99 F 12/07/24 01:30 Pulse 115 H 12/07/24 01:30 Resp 18 12/07/24 01:30 BP 138/93 H 12/07/24 01:30 Pulse Ox 95 12/07/24 01:30 O2 Del Method Room Air 12/07/24 01:30 BMI result Body Mass Index 36.6 Const: Other: Appearance: Alert. Oriented X3. No acute distress. Eyes: Pupils equal, round and reactive to light. ENT: Pharynx normal. Neck: Normal inspection. Neck supple. No lymph nodes noted. No crepitus CVS: Normal heart rate and rhythm. Pulses normal. Normal S1 and S2 Respiratory: No respiratory distress. Breath sounds normal. No Wheezing. No rales Abdomen: Soft and nontender. No rigidity. No distention. Skin: Skin warm and dry. Normal skin color. Normal skin turgor. Extremities: No lower extremity edema. No Lacerations. No Rash Neuro: Oriented X 3. No motor deficit. No sensory deficit. Moving all extremities. No slurred speech. CN 2 through 12 grossly intact Psych: calm, cooperative, seems a bit anxious a pacing Course Course Course Narrative: all of patient's labs pending care team consult pending patient well known to the care team physician observation started at 01:45 Discharge Plan Discharge Clinical Impression: Auditory hallucination Patient Disposition: Still a Patient Prescriptions: No Action ferrous sulfate 325 mg (65 mg iron) Tablet 325 mg PO BID mirtazapine 15 mg tablet 15 mg PO BEDTIME Trelegy Ellipta 200-62.5-25 mcg blister with device 1 ea inhalation DAILY famotidine 20 mg tablet 10 mg PO TIDWM temazepam 15 mg Capsule 15 mg PO BEDTIME PRN (Reason: if awake at 2AM) 30 Days Qty: 30 0RF fluoxetine 40 mg capsule 80 mg PO DAILY atorvastatin 10 mg tablet 10 mg PO DAILY clozapine 100 mg tablet 100 mg PO BEDTIME amlodipine 5 mg tablet 5 mg PO DAILY pantoprazole 20 mg tablet,delayed release (DR/EC) 40 mg PO BID buspirone 10 mg tablet 10 mg PO BID montelukast 10 mg tablet 10 mg PO BEDTIME albuterol sulfate 90 mcg/actuation HFA aerosol inhaler 2 puff inhalation Q6H PRN (Reason: Wheezing) fluphenazine HCl 5 mg tablet 15 mg PO BID prazosin 2 mg capsule 4 mg PO BEDTIME metformin 500 mg tablet 500 mg PO BID nystatin 100,000 unit/gram powder 1 appl topical BID Qty: 60 0RF nicotine 21 mg/24 hr patch 24 hour 1 patch topical DAILY PRN (Reason: Nicotine Cravings) Print Language: Venezuelan
[2024-12-07 02:28] LABS: MANUAL DIFF FLAG NO
[2024-12-07 02:29] LABS: Basophils Percent Auto 0.5 % (0-2); Eosinophils Absolute Auto 0.3 X10*3/uL (0.0-0.4); Eosinophils Percent Auto 3.8 % (0-4); Hematocrit 39.3 % (37.0-47.0); Hemoglobin 13.5 g/dl (12.0-16.0); Imm Gran Abs Auto 0.08 X10*3/uL (0.00-0.03); Lymphocytes Absolute Auto 1.7 X10*3/uL (1.2-4.9); Lymphocytes Percent Auto 20.7 % (20-40); Mean Corpuscular HGB Conc 34.4 g/dl (31.0-35.0); Mean Corpuscular Hemoglobin 31.8 pg (27.0-33.0); Mean Corpuscular Volume 92.7 fL (80.0-98.0); Monocytes Absolute Auto 0.7 X10*3/uL (0.1-1.2); Neutrophils Absolute Auto 5.4 x10*3/uL (2.0-8.3); Platelet Count 281 X10*3/uL (160-400); Red Blood Count 4.24 X10*6/uL (4.20-5.50); Red Cell Distribution Width 13.2 % (11.0-16.0); White Blood Count 8.2 X10*3/uL (4.8-10.8)
[2024-12-07 02:31] LABS: Appearance Urine Cloudy; Color Urine Dark Yellow; Glucose Urine UA Negative (Negative); Leukocyte Esterase Urine Negative (Negative); Nitrite Urine Negative (Negative); PH 5.5 (5.0-9.0); Specific Gravity - Urine >= 1.030 (1.005-1.025); Urine Blood Negative (Negative); Urine Ketones Trace mg/dL (Negative); Urine Protein Trace mg/dL (Neg-Trace)
[2024-12-07 02:43] LABS: Amphetamine Screen Urine Not Detected (Not Detect); Barbiturates, Urine Not Detected (Not Detect); Benzodiazepines Screen Urine Not Detected (Not Detect); Buprenorphine Scr Not Detected (Not Detect); Cannabinoid Screen Urine Not Detected (Not Detect); Cocaine Screen Urine Not Detected (Not Detect); Fentanyl, urine Not Detected (Not Detect); Methadone Screen, Urine Not Detected (Not Detect); Opiate Screen Urine Not Detected (Not Detect); Oxycodone Screen Urine Not Detected (Not Detect); Phencyclidine Screen Urine Not Detected (Not Detect)
[2024-12-07 02:52] LABS: Alanine Aminotransferase 44 U/L (0-31); Albumin Level 4.3 g/dL (3.5-5.0); Anion Gap 15 (12-20); Aspartate Amino Transferase 32 U/L (5-31); Bilirubin Total 0.2 mg/dL (0.0-1.0); Blood Urea Nitrogen 15 mg/dL (9-16); Calcium 9.8 mg/dL (8.4-10.2); Carbon Dioxide 25 mmol/L (22-29); Chloride 105 mmol/L (96-108); Creatinine Clr Calc Pharmacy 109.7; Estimated Glomerular Filt Rate > 60; Glucose Random 171 mg/dL (60-115); Potassium 3.6 mmol/L (3.3-5.1); Sodium 141 mmol/L (135-145); Total Protein 7.8 g/dL (6.5-8.0)
[2024-12-07 04:02] LABS: Alkaline Phosphatase 160 U/L (39-117)
[2024-12-07 04:10] LABS: Acetaminophen LAB < 3 mcg/mL (<30); Salicylate < 5.0 mg/dL (15-30)
--- NOTE | 2024-12-07 07:11 | PC.NURSE ---
Assumed care of patient at 0645, patient appears to be sleeping, respirations even and unlabored, no apparent distress noted. Continue plan of care for CARE team gigi
[2024-12-07 07:13] VITALS: RESP 16
[2024-12-07 11:17] VITALS: BP 146/87; PULSE 84; RESP 14; TEMP 36.3; O2SAT 97
== END 2024-12-07 11:19 | disposition home or self-care (01) ==
PROVIDERS: Emergency Provider Emergency Medicine
DX: R44.0 Auditory hallucinations (principal); F60.3 Borderline personality disorder; F31.9 Bipolar disorder, unspecified; F43.12 Post-traumatic stress disorder, chronic; F41.9 Anxiety disorder, unspecified; Z91.51 Personal history of suicidal behavior; Z91.52 Personal history of nonsuicidal self-harm; E11.9 Type 2 diabetes mellitus without complications; E78.5 Hyperlipidemia, unspecified; D64.9 Anemia, unspecified; K21.9 Gastro-esophageal reflux disease without esophagitis; F17.210 Nicotine dependence, cigarettes, uncomplicated; F12.90 Cannabis use, unspecified, uncomplicated; Z79.84 Long term (current) use of oral hypoglycemic drugs; Z79.899 Other long term (current) drug therapy; Z79.02 Long term (current) use of antithrombotics/antiplatelets
CPT/HCPCS: 36415; 80053; 80143; 80179; 80307; 81003; 85025; 99285; S9485

== ENCOUNTER 2024-12-12 22:49 | Emergency (ER) | payer MEDICARE, MEDICAID, SELFPAY ==
[2024-12-12 22:54] VITALS: BP 130/80; PULSE 135; O2SAT 96
[2024-12-12 22:56] VITALS: BP 157/74; PULSE 87; RESP 18; TEMP 37; O2SAT 98; BMI 47.7
--- NOTE | 2024-12-12 23:14 | PC.NURSE ---
Pt changed over into hospital green gown Pts belongings placed on the top shelf per security Pt requested and given food and drink Plan of care ongoing.
--- NOTE | 2024-12-13 00:01 | ED.PSYCH ---
HPI - Psych General Chief Complaint: Behavioral Concerns Stated Complaint: HEARING VOICES, SELF HARM Time Seen by Provider: 12/12/24 23:37 Source: patient Mode of arrival: EMS Limitations: no limitations History of Present Illness ED Provider: HPI Narrative: patient with frequent ED visits with history of PTSD borderline personality disorder depression comes here as she is hearing voices again telling her to harm herself patient was just here on 12/07 for same Related Data Home Medications ?Medication ?Instructions ?Recorded ?Confirmed albuterol sulfate 90 mcg/actuation 2 puff inhalation Q6H PRN Wheezing 06/24/24 12/07/24 aerosol inhaler amlodipine 5 mg tablet 5 mg PO DAILY 06/24/24 12/07/24 atorvastatin 10 mg tablet 10 mg PO DAILY 06/24/24 12/07/24 buspirone 10 mg tablet 10 mg PO BID 06/24/24 12/07/24 clozapine 100 mg tablet 100 mg PO BEDTIME 06/24/24 12/07/24 fluoxetine 40 mg capsule 80 mg PO DAILY 06/24/24 12/07/24 fluphenazine HCl 5 mg tablet 15 mg PO BID 06/24/24 12/07/24 montelukast 10 mg tablet 10 mg PO BEDTIME 06/24/24 12/07/24 pantoprazole 20 mg tablet,delayed 40 mg PO BID 06/24/24 12/07/24 release prazosin 2 mg capsule 4 mg PO BEDTIME 06/24/24 12/07/24 metformin 500 mg tablet 500 mg PO BID 07/15/24 12/07/24 famotidine 20 mg tablet 10 mg PO TIDWM 10/01/24 12/07/24 ferrous sulfate 325 mg (65 mg 325 mg PO BID 10/01/24 12/07/24 iron) tablet fluticasone fur. 200 mcg-umeclid 1 ea inhalation DAILY 10/01/24 12/07/24 62.5 mcg-vilant 25 mcg inhalat.powder (Trelegy Ellipta) mirtazapine 15 mg tablet 15 mg PO BEDTIME 10/01/24 12/07/24 nicotine 21 mg/24 hr daily 1 patch topical DAILY PRN Nicotine 11/04/24 12/07/24 transdermal patch Cravings Previous Rx's ?Medication ?Instructions ?Recorded nystatin 100,000 unit/gram topical 1 appl topical BID #60 grams 09/25/24 powder temazepam 15 mg capsule 15 mg PO BEDTIME PRN if awake at 10/06/24 2AM 30 days #30 caps Allergies Allergy/AdvReac Type Severity Reaction Status Date / Time azithromycin [AZITHROMYCIN] Allergy Severe Rash Verified 12/12/24 22:59 Fish Containing Products Allergy Severe Anaphylaxis Verified 12/12/24 22:59 codeine [Codeine] Allergy Intermediate Rash Verified 12/12/24 22:59 Penicillins Allergy Intermediate Rash Verified 12/12/24 22:59 prednisone [Prednisone] Allergy Intermediate Rash Verified 12/12/24 22:59 Sulfa (Sulfonamide Allergy Intermediate Rash Verified 12/12/24 22:59 Antibiotics) [Sulfa (Sulfonamides)] ziprasidone [From Geodon] Allergy Intermediate dysuria, Verified 12/12/24 22:59 rash lithium Allergy Unknown Rash Verified 12/12/24 22:59 Review of Systems Review of Systems: Yes all other systems are reviewed and are negative PMFSH Past Medical History Medical History Asthma Suicidal ideation MDD (major depressive disorder), recurrent episode, severe Chest pain Acute anxiety COVID-19 Full body hives Major depression Dizziness Suicide attempt UTI (urinary tract infection) Acetaminophen overdose COVID History of attempted suicide History of non-suicidal self-harm Hypomagnesemia Suicide attempt Suicide attempt by acetaminophen overdose Acetaminophen overdose Depression Diabetes type 2, controlled Borderline personality disorder PTSD (post-traumatic stress disorder) Overdose GERD (gastroesophageal reflux disease) Mood disorder Hyperlipidemia Bronchitis Social History Social History Household Members: Other Household Members Other:: shelter members Housing: Other Housing Other:: shelter Do you presently have visiting nurse or other home services: No Unable to assess alcohol history related to: Unknown Alcohol intake: never Comment: sitter in room Patient Tobacco Use Status: Current everyday Tobacco user Tobacco use type: Cigarette Cigarette Packs Per Day: 1 Cigarettes Per Day: 20.0 Years Smoked: 10 Smoked in Last 30 Days: Yes e-Cigarette/Vaping Use: Never Used Second Hand Smoke Exposure: No Use of substances other than those prescribed or required for medical reasons: No Substance Use Type: Caffiene Any prior treatment program specific to substance use: No Advance Directives: No Advance Directives Information Provided: No Do you have a plan to hurt others: Clear service: No Current occupational status: unemployed and disabled Sexual orientation: Straight/Heterosexual Physical Exam Vital Signs: Vital Signs: Last Vital Signs Temp 98.6 F 12/12/24 22:56 Pulse 87 12/12/24 22:56 Resp 18 12/12/24 22:56 BP 157/74 H 12/12/24 22:56 Pulse Ox 98 12/12/24 22:56 O2 Del Method Room Air 12/12/24 22:56 BMI result Body Mass Index 47.7 Appearance: Alert. Oriented X3. No acute distress. Eyes: PERRLA, No Nystagmus ENT: Pharynx normal. Oral Mucosa moist Neck: Normal inspection. Neck supple. CVS: Normal heart rate and rhythm. Pulses normal. Respiratory: No respiratory distress. Equal air entry bilateral, no wheezing/rales/rhonchi Abdomen: Soft and nontender. Bowel sounds are present, no mass palpable, no CVA tenderness Skin: Skin warm and dry. Normal skin color. Normal skin turgor. Extremities: No lower extremity edema. No calf tenderness psych: Feel depressed claims hearing voices Neuro: Oriented X 3. No motor deficit. No sensory deficit.No cerebellar signs , cranial nerves II-XII intact Medical Decision Making Medical Decision Making MDM Narrative: Patient with depression suicidal ideation care team consulted disposition pending their evaluation Discharge Plan Discharge Clinical Impression: Depression with suicidal ideation, Auditory hallucination Patient Disposition: Still a Patient Prescriptions: No Action ferrous sulfate 325 mg (65 mg iron) Tablet 325 mg PO BID mirtazapine 15 mg tablet 15 mg PO BEDTIME Trelegy Ellipta 200-62.5-25 mcg blister with device 1 ea inhalation DAILY famotidine 20 mg tablet 10 mg PO TIDWM temazepam 15 mg Capsule 15 mg PO BEDTIME PRN (Reason: if awake at 2AM) 30 Days Qty: 30 0RF fluoxetine 40 mg capsule 80 mg PO DAILY atorvastatin 10 mg tablet 10 mg PO DAILY clozapine 100 mg tablet 100 mg PO BEDTIME amlodipine 5 mg tablet 5 mg PO DAILY pantoprazole 20 mg tablet,delayed release (DR/EC) 40 mg PO BID buspirone 10 mg tablet 10 mg PO BID montelukast 10 mg tablet 10 mg PO BEDTIME albuterol sulfate 90 mcg/actuation HFA aerosol inhaler 2 puff inhalation Q6H PRN (Reason: Wheezing) fluphenazine HCl 5 mg tablet 15 mg PO BID prazosin 2 mg capsule 4 mg PO BEDTIME metformin 500 mg tablet 500 mg PO BID nystatin 100,000 unit/gram powder 1 appl topical BID Qty: 60 0RF nicotine 21 mg/24 hr patch 24 hour 1 patch topical DAILY PRN (Reason: Nicotine Cravings) Print Language: Cymro
[2024-12-13 08:07] VITALS: BP 171/98; PULSE 87; RESP 16; TEMP 36.8; O2SAT 97
--- NOTE | 2024-12-13 13:08 | MHC.CARE ---
Pt was placed on alert with [facility] and is scheduled for a 3 day follow up.
[2024-12-13 13:20] VITALS: BP 171/98; PULSE 87; RESP 16; TEMP 36.8; O2SAT 97
== END 2024-12-13 13:26 | disposition home or self-care (01) ==
PROVIDERS: Emergency Provider Internal Medicine
DX: R44.0 Auditory hallucinations (principal); R45.851 Suicidal ideations; F33.1 Major depressive disorder, recurrent, moderate; F17.210 Nicotine dependence, cigarettes, uncomplicated; Z79.899 Other long term (current) drug therapy
CPT/HCPCS: 99284; 99285; S9485

== ENCOUNTER 2024-12-18 12:47 | Outpatient (REF) | payer MEDICARE, MEDICAID, SELFPAY ==
[2024-12-18 13:06] LABS: MANUAL DIFF FLAG NO
[2024-12-18 14:36] LABS: Basophils Percent Auto 0.6 % (0-2); Eosinophils Absolute Auto 0.2 X10*3/uL (0.0-0.4); Eosinophils Percent Auto 3.3 % (0-4); Hematocrit 38.1 % (37.0-47.0); Hemoglobin 12.4 g/dl (12.0-16.0); Imm Gran Abs Auto 0.09 X10*3/uL (0.00-0.03); Imm Gran Pct Auto 1.3 % (0.0-0.4); Lymphocytes Absolute Auto 1.2 X10*3/uL (1.2-4.9); Lymphocytes Percent Auto 17.8 % (20-40); Mean Corpuscular HGB Conc 32.5 g/dl (31.0-35.0); Mean Corpuscular Hemoglobin 30.6 pg (27.0-33.0); Mean Corpuscular Volume 94.1 fL (80.0-98.0); Mean Platelet Volume 9.4 fL (9.4-12.3); Monocytes Absolute Auto 0.6 X10*3/uL (0.1-1.2); Monocytes Percent Auto 8.2 % (2-11); Neutrophils Absolute Auto 4.8 x10*3/uL (2.0-8.3); Neutrophils Percent Auto 68.8 % (45-73); Platelet Count 307 X10*3/uL (160-400); Red Blood Count 4.05 X10*6/uL (4.20-5.50); Red Cell Distribution Width 13.1 % (11.0-16.0)
--- OUTSIDE RECORDS SUMMARY | 2024-12-18 15:25 | XMS_ITS | Encounter Summary ---
Author Organization [facility] Address [address] [place] [address] Care Team Providers Care Trash Collector Truck Driver Name Role Phone Nikki Alcantar MD Primary Care Provider [phone] Michelle Norris MD Primary Care Provider Unavail able [facility] Primary Care Provider [facility] Michelle Norris MD Primary Care Provider Unavail [facility] Rosetta Diamond MD Primary Care Provider + Encounter Details Date Type Department Care Team Description 11/06/2008 Hospital Medical Records [address] [place] [id number] Bandar Ryan [address] [facility] [address] [place] [address] Social History Tobacco Use Types Packs/Day Years [...] on filedocumented in this encounter Care Teams Trash Collector Truck Driver Relationship Specialty Start Date End Date Nikki Alcantar MD [address] [place] [id number] PCP - General 06/26/05 03/04/17 Michelle Norris MD [address] [place] [address] [id number] PCP - General Internal Medicine 03/05/17 03/16/21 [facility], Pcp [address] [place] [address] PCP - General Internal Medicine 03/17/21 05/04/21 Michelle Norris MD [address] [place] [id number] PCP - General Internal Medicine 05/05/21 09/13/22 Rosetta Diamond MD [address] [place] [phone] PCP - General Internal Medicine 09/14/22 documented as of this encounter
--- OUTSIDE RECORDS SUMMARY | 2024-12-18 15:25 | XMS_ITS | Encounter Summary ---
Author Organization [facility] Address [address] [place] [address] Care Team Providers Care Wellness Program Administrator Name Role Phone Nikki Alcantar MD Primary Care Provider [phone] Michelle Norris MD Primary Care Provider Unavail [facility] Primary Care Provider [facility] Michelle Norris MD Primary Care Provider Unavail [facility] Rosetta Diamond MD Primary Care Provider + Encounter Details Date Type Department Care Team Description 11/20/2015 Hospital Medical Records [address] [place] [id number] Sourav Lucas Social History Tobacco Use Types [...] on filedocumented in this encounter Care Teams Wellness Program Administrator Relationship Specialty Start Date End Date Nikki Alcantar MD [address] [place] [id number] PCP - General 06/26/05 03/04/17 Michelle Norris MD [address] [place] [address] PCP - General Internal Medicine 03/05/17 03/16/21 [facility], Pcp [address] [place] [address] PCP - General Internal Medicine 03/17/21 05/04/21 Michelle Norris MD [address] [place] [address] [place] [address] PCP - General Internal Medicine 05/05/21 09/13/22 Rosetta Diamond MD [address] [place], [place] [phone] PCP - General Internal Medicine 09/14/22 documented as of this encounter
--- OUTSIDE RECORDS SUMMARY | 2024-12-18 15:25 | XMS_ITS | Encounter Summary ---
Author Organization [facility] Address [address] [place] [address] Care Team Providers Care Vision Specialist Name Role Phone Michelle Norris MD Primary Care Provider Unavail able [facility], Pcp Primary Care Provider Unavailabl e Michelle Norris MD Primary Care Provider Unavail able Rosetta Diamond MD Primary Care Provider + Encounter Details Date Type Department Care Team Description 01/29/2018 Release of Information Medical Records [address] [place] [id number] Abstract, Provider Social History Tobacco Use Types [...] on filedocumented in this encounter Care Teams Vision Specialist Relationship Specialty Start Date End Date Michelle Norris MD PCP - General Internal Medicine 03/05/17 03/16/21 [facility], Pcp PCP - General Internal Medicine 03/17/21 05/04/21 Michelle Norris MD PCP - General Internal Medicine 05/05/21 09/13/22 Rosetta Diamond MD [address] [place] [id number] PCP - General Internal Medicine 09/14/22 documented as of this encounter
--- OUTSIDE RECORDS SUMMARY | 2024-12-18 15:25 | XMS_ITS | Encounter Summary ---
Author Organization [facility] Address [address] [place] [address] Care Team Providers Care Basin Tender Name Role Phone Michelle Norris MD Primary Care Provider Unavail able [facility], Pcp [facility] Michelle Norris MD Primary Care Provider Unavail able Rosetta Diamond MD Primary Care Provider + Encounter Details Date Type Department Care Team Description 02/03/2019 Hospital Medical Records [address] [place] [id number] Social History Tobacco Use Types Packs/Day Years [...] on filedocumented in this encounter Care Teams Basin Tender Relationship Specialty Start Date End Date Michelle Norris MD PCP - General Internal Medicine 03/05/17 03/16/21 [facility], Pcp PCP - General Internal Medicine 03/17/21 05/04/21 Michelle Norris MD PCP - General Internal Medicine 05/05/21 09/13/22 Rosetta Diamond MD [address] [place] [phone] PCP - General Internal Medicine 09/14/22 documented as of this encounter
--- OUTSIDE RECORDS SUMMARY | 2024-12-18 15:25 | XMS_ITS | Encounter Summary ---
Author Organization [facility] Address [address] [place] [address] Care Team Providers Care Community Health Program Coordinator Name Role Phone Nikki Alcantar MD Primary Care Provider [phone] Michelle Norris MD Primary Care Provider Unavail [facility] Primary Care Provider [facility] Michelle Norris MD Primary Care Provider Unavail [facility] Rosetta Diamond MD Primary Care Provider + Encounter Details Date Type Department Care Team Description 11/26/2007 Hospital Medical Records [address] [place] [id number] Saúl Francisco Social History Tobacco Use Types [...] on filedocumented in this encounter Care Teams Community Health Program Coordinator Relationship Specialty Start Date End Date Nikki Alcantar MD [address] [place] [id number] PCP - General 06/26/05 03/04/17 Michelle Norris MD [address] [place] [address] PCP - General Internal Medicine 03/05/17 03/16/21 [facility], Pcp [address] [place] [address] PCP - General Internal Medicine 03/17/21 05/04/21 Michelle Norris MD [address] [place] [id number] PCP - General Internal Medicine 05/05/21 09/13/22 Rosetta Diamond MD [address] [place], [place] [phone] PCP - General Internal Medicine 09/14/22 documented as of this encounter
--- OUTSIDE RECORDS SUMMARY | 2024-12-18 15:25 | XMS_ITS | Encounter Summary ---
Author Organization [facility] Address [address] [place] [address] Care Team Providers Care Foamite Mixer Name Role Phone Michelle Norris MD Primary Care Provider Unavail able [facility], [facility]cp [facility] Lagos MD Primary Care Provider Unavail able Rosetta Diamond MD Primary Care Provider + Reason for Visit * Reason Onset Date Comments Information Needed 04/29/2019 Release Of Information 04/29/2019 Encounter Details Date Type Department Care Team Description 04/29/2019 Telephone Adult Medicine [address] [id number] Michelle Norris MD Information Needed; Release Of Information Social History Tobacco Use Types Packs/Day Years [...] encounter Miscellaneous Notes * Telephone Encounter - Noemy Galavizdo - 04/29/2019 3:15 PM EDT Information Needed Who is calling: Other [facility] Information being requested? Inpatient stay at [facility] 04/[facility]/19 and ER notes from 04/26/19 and 04/27/19, current med list If information is regarding a referral and notes are needed- transfer call to HIM department If other information is needed, was an COLLIN signed? YES TWO COLLIN received sent to [facility] How is the information to be communicated back to the caller? Faxed to [phone] documented in this encounter Plan of Treatment Not on file documented as of this encounter Visit Diagnoses Not on filedocumented in this encounter Care Teams Foamite Mixer Relationship Specialty Start Date End Date Michelle Norris MD PCP - General Internal Medicine 03/05/17 03/16/21 [facility] PCP - General Internal Medicine 03/17/21 05/04/21 Michelle Norris MD PCP - General Internal Medicine 05/05/21 09/13/22 Rosetta Diamond MD [address] [place] [id number] PCP - General Internal Medicine 09/14/22 documented as of this encounter
--- OUTSIDE RECORDS SUMMARY | 2024-12-18 15:25 | XMS_ITS | Encounter Summary ---
Author Organization [facility] Address [address] [place] [address] Care Team Providers Care Wheelchair Van Operator First Responder Name Role Phone Nikki Alcantar MD Primary Care Provider [phone] Michelle Norris MD Primary Care Provider Unavail [facility] Primary Care Provider [facility] Michelle Norris MD Primary Care Provider Unavail [facility] Rosetta Diamond MD Primary Care Provider + Encounter Details Date Type Department Care Team Description 07/05/2012 Transfer Records Medical Records [address] [place] [address] Abstract, Provider Social History Tobacco Use Types [...] on filedocumented in this encounter Care Teams Wheelchair Van Operator First Responder Relationship Specialty Start Date End Date Nikki Alcantar MD [address] [place] [address] PCP - General 06/26/05 03/04/17 Michelle Norris MD [address] [place] [address] PCP - General Internal Medicine 03/05/17 03/16/21 [facility], Pcp [address] [place] [address] PCP - General Internal Medicine 03/17/21 05/04/21 Michelle Norris MD [address] [place] [address] 269[address] PCP - General Internal Medicine 05/05/21 09/13/22 Rosetta Diamond MD [address] [place], [place] [phone] PCP - General Internal Medicine 09/14/22 documented as of this encounter
--- OUTSIDE RECORDS SUMMARY | 2024-12-18 15:25 | XMS_ITS | Encounter Summary ---
Author Organization [facility] Address [address] [place] [address] Care Team Providers Care Pattern Maker Programer Name Role Phone Nikki Alcantar MD Primary Care Provider [phone] Michelle Norris MD Primary Care Provider Unavail [facility] Primary Care Provider [facility] Michelle Norris MD Primary Care Provider Unavail [facility] Rosetta Diamond MD Primary Care Provider + Encounter Details Date Type Department Care Team Description 12/03/2008 Hospital Medical Records [address] [place] [id number] Social History Tobacco Use Types Packs/Day Years [...] on filedocumented in this encounter Care Teams Pattern Maker Programer Relationship Specialty Start Date End Date Nikki Alcantar MD [address] [place] [address] PCP - General 06/26/05 03/04/17 Michelle Norris MD [address] [place] [address] PCP - General Internal Medicine 03/05/17 03/16/21 [facility], Pcp [address] [place] [address] PCP - General Internal Medicine 03/17/21 05/04/21 Michelle Norris MD [address] [place] [address] PCP - General Internal Medicine 05/05/21 09/13/22 Rosetta Diamond MD [address] [place] [address] KARTIK CHEN [address] PCP - General Internal Medicine 09/14/22 documented as of this encounter
--- OUTSIDE RECORDS SUMMARY | 2024-12-18 15:25 | XMS_ITS | Encounter Summary ---
Author Organization [facility] Address [address] [place] [address] Care Team Providers Care Integrative Medicine Physician Name Role Phone Nikki Alcantar MD Primary Care Provider [phone] Michelle Norris MD Primary Care Provider Unavail [facility] Primary Care Provider [facility] Michelle Norris MD Primary Care Provider Unavail [facility] Rosetta Diamond MD Primary Care Provider + Encounter Details Date Type Department Care Team Description 07/31/2012 Lamp Assembler Report Medical Records [address] [place] [address] Julio Paredes MD Social History Tobacco Use [...] on filedocumented in this encounter Care Teams Integrative Medicine Physician Relationship Specialty Start Date End Date Nikki Alcantar MD [address] [place] [address] PCP - General 06/26/05 03/04/17 Michelle Norris MD [address] [place] [address] PCP - General Internal Medicine 03/05/17 03/16/21 [facility], Pcp [address] [place] [address] PCP - General Internal Medicine 03/17/21 05/04/21 Michelle Norris MD [address] [place] [address] [place] [address] PCP - General Internal Medicine 05/05/21 09/13/22 Rosetta Diamond MD [address] [place], [place] [phone] PCP - General Internal Medicine 09/14/22 documented as of this encounter
--- OUTSIDE RECORDS SUMMARY | 2024-12-18 15:25 | XMS_ITS | Encounter Summary ---
Author Organization [facility] Address [address] [place] [address] Care Team Providers Care Academic Director Name Role Phone Nikki Alcantar MD Primary Care Provider [phone] Michelle Norris MD Primary Care Provider Unavail able [facility] Primary Care Provider [facility] Michelle Norris MD Primary Care Provider Unavail [facility] Rosetta Diamond MD Primary Care Provider + Encounter Details Date Type Department Care Team Description 01/20/2009 Hospital Medical Records [address] [place] [address] Bandar Ryan [address] [facility] [address] [place] [address] Social History Tobacco Use Types Packs/Day Years [...] on filedocumented in this encounter Care Teams Academic Director Relationship Specialty Start Date End Date Nikki Alcantar MD [address] [place] [address] PCP - General 06/26/05 03/04/17 Michelle Norris MD [address] [place] [address] PCP - General Internal Medicine 03/05/17 03/16/21 [facility], Pcp [address] [place] [address] PCP - General Internal Medicine 03/17/21 05/04/21 Michelle Norris MD [address] [place] [address] PCP - General Internal Medicine 05/05/21 09/13/22 Rosetta Diamond MD [address] [place] [address] PCP - General Internal Medicine 09/14/22 documented as of this encounter
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
--- OUTSIDE RECORDS SUMMARY | 2024-12-18 15:25 | XMS_ITS | Encounter Summary ---
Author Organization [facility] Address [address] [place] [address] Care Team Providers Care Hassock Maker Name Role Phone Michelle Norris MD Primary Care Provider Unavail able [facility] Michelle Lagos MD Primary Care Provider Unavail able Rosetta Diamond MD Primary Care Provider + Reason for Visit * Reason Onset Date Comments Orders Call 01/25/2018 Encounter Details Date Type Department Care Team Description 01/25/2018 Telephone OBGYN - [place] [address] [place] [address] Ying Morton MD [address] [place] [address] Orders Call Social History Tobacco Use Types [...] has the patient had this problem? Pt???s CONTOUR GRINDER provider: Ying Morton M.D. Last menstrual period (LMP) or EDC (due date): N/A documented in this encounter Plan of Treatment Not on file documented as of this encounter Visit Diagnoses Not on filedocumented in this encounter Care Teams Hassock Maker Relationship Specialty Start Date End Date Michelle Norris MD PCP - General Internal Medicine 03/05/17 03/16/21 [facility] PCP - General Internal Medicine 03/17/21 05/04/21 Michelle Norris MD PCP - General Internal Medicine 05/05/21 09/13/22 Rosetta Diamond MD [address] [place] [address] PCP - General Internal Medicine 09/14/22 documented as of this encounter
--- OUTSIDE RECORDS SUMMARY | 2024-12-18 15:25 | XMS_ITS | Encounter Summary ---
Author Organization [facility] Address [address] [place] [address] Care Team Providers Care Pharmacy Retail Support Specialist Name Role Phone Nikki Alcantar MD Primary Care Provider [phone] Michelle Norris MD Primary Care Provider Unavail [facility] Primary Care Provider [facility] Michelle Norris MD Primary Care Provider Unavail [facility] Rosetta Diamond MD Primary Care Provider + Encounter Details Date Type Department Care Team Description 05/17/2012 Hospital Medical Records [address] [place] [address] Miles Shah MD Social History Tobacco Use [...] filedocumented in this encounter Care Teams Pharmacy Retail Support Specialist Relationship Specialty Start Date End Date Nikki Alcantar MD [address] [place] [address] PCP - General 06/26/05 03/04/17 Michelle Norris MD [address] [place] [address] PCP - General Internal Medicine 03/05/17 03/16/21 [facility], Pcp [address] [place] [address] PCP - General Internal Medicine 03/17/21 05/04/21 Michelle Norris MD [address] [place] [address] PCP - General Internal Medicine 05/05/21 09/13/22 Rosetta Diamond MD [address] [place] [address] PCP - General Internal Medicine 09/14/22 documented as of this encounter
--- OUTSIDE RECORDS SUMMARY | 2024-12-18 15:25 | XMS_ITS | Encounter Summary ---
Author Organization [facility] Address [address] [place] [address] Care Team Providers Care Potato Chip Maker Name Role Phone Nikki Alcantar MD Primary Care Provider [phone] Michelle Norris MD Primary Care Provider Unavail [facility] Primary Care Provider [facility] Michelle Norris MD Primary Care Provider Unavail [facility] Rosetta Diamond MD Primary Care Provider + Encounter Details Date Type Department Care Team Description 01/05/2016 Transfer Records Medical Records [address] [place] [address] Social History Tobacco Use Types Packs/Day Years [...] on filedocumented in this encounter Care Teams Potato Chip Maker Relationship Specialty Start Date End Date Nikki Alcantar MD [address] [place] [address] PCP - General 06/26/05 03/04/17 Michelle Norris MD [address] [place] [address] 70036 PCP - General Internal Medicine 03/05/17 03/16/21 [facility], Pcp [address] [place], [place] [phone] PCP - General Internal Medicine 03/17/21 05/04/21 Michelle Norris MD [address] [place] [address]56 PCP - General Internal Medicine 05/05/21 09/13/22 Rosetta Diamond MD [address] [place] [address] PCP - General Internal Medicine 09/14/22 documented as of this encounter
--- OUTSIDE RECORDS SUMMARY | 2024-12-18 15:25 | XMS_ITS | Encounter Summary ---
Author Organization [facility] Address [address] [place] [address] Care Team Providers Care Sample Paster Name Role Phone Nikki Alcantar MD Primary Care Provider [phone] Michelle Norris MD Primary Care Provider Unavail [facility] Primary Care Provider [facility] Michelle Norris MD Primary Care Provider Unavail able Rosetta Diamond MD Primary Care Provider + Encounter Details Date Type Department Care Team Description 12/20/2007 [facility] Medical Records [address] [place] [phone] Abstract, Provider Social History Tobacco Use Types [...] on filedocumented in this encounter Care Teams Sample Paster Relationship Specialty Start Date End Date Nikki Alcantar MD [address] [place] [address] PCP - General 06/26/05 03/04/17 Michelle Norris MD [address] [place] [address] PCP - General Internal Medicine 03/05/17 03/16/21 [facility], [address] [address] PCP - General Internal Medicine 03/17/21 05/04/21 Michelle Norris MD [address] [place] [address] PCP - General Internal Medicine 05/05/21 09/13/22 Rosetta Diamond MD [address] [place] [address] PCP - General Internal Medicine 09/14/22 documented as of this encounter
--- OUTSIDE RECORDS SUMMARY | 2024-12-18 15:25 | XMS_ITS | Encounter Summary ---
Author Organization [facility] Address [address] [place] [address] Care Team Providers Care Continuous Improvement Intern Name Role Phone Nikki Alcantar MD Primary Care Provider [phone] Michelle Norris MD Primary Care Provider Unavail [facility] Primary Care Provider [facility] Michelle Norris MD Primary Care Provider Unavail [facility] Rosetta Diamond MD Primary Care Provider + Encounter Details Date Type Department Care Team Description 04/21/2008 Hospital Medical Records [address] [place] [address] Bandar Paul Social History Tobacco Use Types [...] on filedocumented in this encounter Care Teams Continuous Improvement Intern Relationship Specialty Start Date End Date Nikki Alcantar MD [address] [place] [address] PCP - General 06/26/05 03/04/17 Michelle Norris MD [address] [place] [address] 68[address] PCP - General Internal Medicine 03/05/17 03/16/21 [facility], Pcp [address] [place] [address] PCP - General Internal Medicine 03/17/21 05/04/21 Michelle Norris MD [address] [place], [place] [phone] PCP - General Internal Medicine 05/05/21 09/13/22 Rosetta Diamond MD [address] [place] [address] PCP - General Internal Medicine 09/14/22 documented as of this encounter
--- OUTSIDE RECORDS SUMMARY | 2024-12-18 15:25 | XMS_ITS | Encounter Summary ---
Author Organization [facility] Address [address] [place] [address] Care Team Providers Care Razor Sharpener Name Role Phone Michelle Norris MD Primary Care Provider [facility]ail [facility] Michelle Norris MD Primary Care Provider Unavail able Rosetta Diamond MD Primary Care Provider + Encounter Details Date Type Department Care Team Description 12/05/2017 Orders Only Adult Medicine [address] [address] Michelle Norris MD Social History Tobacco Use [...] on filedocumented in this encounter Care Teams Razor Sharpener Relationship Specialty Start Date End Date Michelle Norris MD PCP - General Internal Medicine 03/05/17 03/16/21 [facility] PCP - General Internal Medicine 03/17/21 05/04/21 Michelle Norris MD PCP - General Internal Medicine 05/05/21 09/13/22 Rosetta Diamond MD [address] [place] [address] [phone] PCP - General Internal Medicine 09/14/22 documented as of this encounter
--- OUTSIDE RECORDS SUMMARY | 2024-12-18 15:25 | XMS_ITS | Encounter Summary ---
Author Organization [facility] Address [address] [place] [address] Care Team Providers Care Health Aide Name Role Phone Nikki Alcantar MD Primary Care Provider [phone] Michelle Norris MD Primary Care Provider Unavail able [facility] Primary Care Provider [facility] Michelle Norris MD Primary Care Provider Unavail able Rosetta Diamond MD Primary Care Provider + Reason for Visit * Reason Onset Date Comments Faxed Order 04/19/2016 Encounter Details Date Type Department Care Team Description 04/19/2016 Telephone Adult Medicine [address] [phone] Nikki Alcantar MD [address] [place] [address] [phone] Faxed Order Social History Tobacco Use Types [...] * Telephone Encounter - Sho Souza - 04/19/2016 9:36 AM EDT Participant diet order for Dr Alcantar's signature documented in this encounter Plan of Treatment Not on file documented as of this encounter Visit Diagnoses Not on filedocumented in this encounter Care Teams Health Aide Relationship Specialty Start Date End Date Nikki Alcantar MD [address] [place] [address] PCP - General 06/26/05 03/04/17 Michelle Norris MD [address] [place], [place] [phone] PCP - General Internal Medicine 03/05/17 03/16/21 [place] [address] PCP - General Internal Medicine 03/17/21 05/04/21 Michelle Norris MD [address] [place], [place] [phone] PCP - General Internal Medicine 05/05/21 09/13/22 Rosetta Diamond MD [address] [place] [address] PCP - General Internal Medicine 09/14/22 documented as of this encounter
--- OUTSIDE RECORDS SUMMARY | 2024-12-18 15:25 | XMS_ITS | Encounter Summary ---
Author Organization [facility] Address [address] [place] [address] Care Team Providers Care Public Information Relations Manager Name Role Phone Nikki Alcantar MD Primary Care Provider [phone] Michelle Norris MD Primary Care Provider Unavail [facility] Primary Care Provider [facility] Michelle Norris MD Primary Care Provider Unavail [facility] Rosetta Diamond MD Primary Care Provider + Encounter Details Date Type Department Care Team Description 12/26/2015 Hospital Medical Records [address] [place] [address] Angelique Moore Social History Tobacco Use Types [...] on filedocumented in this encounter Care Teams Public Information Relations Manager Relationship Specialty Start Date End Date Nikki Alcantar MD [address] [place] [address] PCP - General 06/26/05 03/04/17 Michelle Norris MD [address] [place] [address] PCP - General Internal Medicine 03/05/17 03/16/21 [facility], Pcp [address] [place] [address] PCP - General Internal Medicine 03/17/21 05/04/21 Michelle Norris MD [address] [place] [address] [place] [address] PCP - General Internal Medicine 05/05/21 09/13/22 Rosetta Diamond MD [address] [place], [place] [phone] PCP - General Internal Medicine 09/14/22 documented as of this encounter
--- OUTSIDE RECORDS SUMMARY | 2024-12-18 15:25 | XMS_ITS | Encounter Summary ---
Author Organization [facility] Address [address] [place] [address] Care Team Providers Care Silk Top Hat Body Maker Name Role Phone Nikki Alcantar MD Primary Care Provider [phone] Michelle Norris MD Primary Care Provider Unavail [facility] Primary Care Provider [facility] Michelle Norris MD Primary Care Provider Unavail [facility] Rosetta Diamond MD Primary Care Provider + Encounter Details Date Type Department Care Team Description 02/22/2012 Hospital Medical Records [address] [place] [address] Marlen Grande Social History Tobacco Use Types [...] on filedocumented in this encounter Care Teams Silk Top Hat Body Maker Relationship Specialty Start Date End Date Nikki Alcantar MD [address] [place] [address] 91143 PCP - General 06/26/05 03/04/17 Michelle Norris MD [address] [place] [address] 47[address] PCP - General Internal Medicine 03/05/17 03/16/21 [facility], Pcp [address] [place] [address] PCP - General Internal Medicine 03/17/21 05/04/21 Michelle Norris MD [address] [place] [address] 15798 PCP - General Internal Medicine 05/05/21 09/13/22 Rosetta Diamond MD [address] [place] [address] PCP - General Internal Medicine 09/14/22 documented as of this encounter
--- OUTSIDE RECORDS SUMMARY | 2024-12-18 15:25 | XMS_ITS | Encounter Summary ---
Author Organization [facility] Address [address] [place] [address] Care Team Providers Care Grey Goods Tester Name Role Phone Nikki Alcantar MD Primary Care Provider [phone] Michelle Norris MD Primary Care Provider Unavail [facility] Primary Care Provider [facility] Michelle Norris MD Primary Care Provider Unavail [facility] Rosetta Diamond MD Primary Care Provider + Encounter Details Date Type Department Care Team Description 09/28/2012 Night Triage Doc Medical Records [address] [place] [address] Abstract, Provider Social History Tobacco Use Types [...] on filedocumented in this encounter Care Teams Grey Goods Tester Relationship Specialty Start Date End Date Nikki Alcantar MD [address] [place] [address] PCP - General 06/26/05 03/04/17 Michelle Norris MD [address] [place] [address] PCP - General Internal Medicine 03/05/17 03/16/21 [facility], Pcp [address] [place] [address] PCP - General Internal Medicine 03/17/21 05/04/21 Michelle Norris MD [address] [place], [place] [phone] PCP - General Internal Medicine 05/05/21 09/13/22 Rosetta Diamond MD [address] [place] [address] PCP - General Internal Medicine 09/14/22 documented as of this encounter
--- OUTSIDE RECORDS SUMMARY | 2024-12-18 15:25 | XMS_ITS | Encounter Summary ---
Author Organization [facility] Address [address] [place] [address] Care Team Providers Care Audio Visual Manager Name Role Phone Nikki Alcantar MD Primary Care Provider [phone] Michelle Norris MD Primary Care Provider Unavail able [facility] Primary [facility] Michelle Norris MD Primary Care Provider Unavail able Rosetta Diamond MD Primary Care Provider + Encounter Details Date Type Department Care Team Description 09/29/2012 Telephone Adult Medicine [facility] [address] [place] [address] [phone] Nikki Alcantar MD [address] [place] [address] [phone] Social History Tobacco Use Types Packs/Day Years [...] on filedocumented in this encounter Care Teams Audio Visual Manager Relationship Specialty Start Date End Date Nikki Alcantar MD [address] [place] [address] PCP - General 06/26/05 03/04/17 Michelle Norris MD [address] [place], [place] [phone] PCP - General Internal Medicine 03/05/17 03/16/21 [place] [address] PCP - General Internal Medicine 03/17/21 05/04/21 Michelle Norris MD [address] [place] [address] PCP - General Internal Medicine 05/05/21 09/13/22 Rosetta Diamond MD [address] [place] [address] PCP - General Internal Medicine 09/14/22 documented as of this encounter
--- OUTSIDE RECORDS SUMMARY | 2024-12-18 15:25 | XMS_ITS | Encounter Summary ---
Author Organization [facility] Address [address] [place] [address] Care Team Providers Care Auto Tech Name Role Phone Nikki Alcantar MD Primary Care Provider [phone] Michelle Norris MD Primary Care Provider Unavail [facility] Primary Care Provider [facility] Michelle Norris MD Primary Care Provider Unavail [facility] Rosetta Diamond MD Primary Care Provider + Encounter Details Date Type Department Care Team Description 04/01/2009 Hospital Medical Records [address] [place] [address] Social History Tobacco Use Types Packs/Day Years [...] on filedocumented in this encounter Care Teams Auto Tech Relationship Specialty Start Date End Date Nikki Alcantar MD [address] [place] [address] PCP - General 06/26/05 03/04/17 Michelle Norris MD [address] [place] [address] PCP - General Internal Medicine 03/05/17 03/16/21 [facility], Pcp [address] [place] [address] PCP - General Internal Medicine 03/17/21 05/04/21 Michelle Norris MD [address] [place] [address] PCP - General Internal Medicine 05/05/21 09/13/22 Rosetta Diamond MD [address] [place] [address] KARTIK CHEN [address] PCP - General Internal Medicine 09/14/22 documented as of this encounter
--- OUTSIDE RECORDS SUMMARY | 2024-12-18 15:25 | XMS_ITS | Encounter Summary ---
Author Organization [facility] Address [address] [place] [address] Care Team Providers Care Ice Sculptor Name Role Phone Nikki Alcantar MD Primary Care Provider [phone] Michelle Norris MD Primary Care Provider Unavail [facility] Primary Care Provider [facility] Michelle Norris MD Primary Care Provider Unavail [facility] Rosetta Diamond MD Primary Care Provider + Encounter Details Date Type Department Care Team Description 11/26/2007 Hospital Medical Records [address] [place] [address] Alverto Hernandez Social History Tobacco Use Types [...] on filedocumented in this encounter Care Teams Ice Sculptor Relationship Specialty Start Date End Date Nikki Alcantar MD [address] [place] [address] PCP - General 06/26/05 03/04/17 Michelle Norris MD [address] [place] [address] PCP - General Internal Medicine 03/05/17 03/16/21 [facility], Pcp [address] [place] [address] PCP - General Internal Medicine 03/17/21 05/04/21 Michelle Norris MD [address] [place] [address] 99935 PCP - General Internal Medicine 05/05/21 09/13/22 Rosetta Diamond MD [address] [place] [address] PCP - General Internal Medicine 09/14/22 documented as of this encounter
--- OUTSIDE RECORDS SUMMARY | 2024-12-18 15:25 | XMS_ITS | Encounter Summary ---
Author Organization [facility] Address [address] [place] [address] Care Team Providers Care Social Insurance Analyst Name Role Phone Michelle Norris MD Primary Care Provider Unavail able [facility] Primary Care Provider Michelle Abdi MD Primary Care Provider Unavail able Rosetta Diamond MD Primary Care Provider + Reason for Visit * Reason Onset Date Comments TEST RESULTS 06/10/2019 result notes Encounter Details Date Type Department Care Team Description 06/10/2019 Telephone Adult Medicine [address] [address] Lona Rowell PA-C TEST RESULTS (result notes) [...] 06/12/2019 1:56 PM EDT [facility] at [facility] advised and they confirmed her appointment on 06-24-19 w/. * Telephone Encounter - Linda Torres M.A. - 06/11/2019 2:03 PM EDT Left message for patient to return call. * Telephone Encounter - Radha Robles - 06/11/2019 11:20 AM EDT Patient returning phone call [phone] * Telephone Encounter - Linda Torres M.A. [...] filedocumented in this encounter Care Teams Social Insurance Analyst Relationship Specialty Start Date End Date Michelle Norris MD PCP - General Internal Medicine 03/05/17 03/16/21 [facility] PCP - General Internal Medicine 03/17/21 05/04/21 Michelle Norris MD PCP - General Internal Medicine 05/05/21 09/13/22 Rosetta Diamond MD [address] [place] [address] PCP - General Internal Medicine 09/14/22 documented as of this encounter
--- OUTSIDE RECORDS SUMMARY | 2024-12-18 15:25 | XMS_ITS | Encounter Summary ---
Author Organization [facility] Address [address] [place] [address] Care Team Providers Care Ground Crewman Mission Support Name Role Phone Nikki Alcantar MD Primary Care Provider [phone] Michelel Norris MD Primary Care Provider Unavail [facility] Primary Care Provider [facility] Michelle Norris MD Primary Care Provider Unavail [facility] Rosetta Diamond MD Primary Care Provider + Encounter Details Date Type Department Care Team Description 03/27/2016 Hospital Medical Records [address] [place] [address] Rod Mccoy MD Social History Tobacco Use [...] filedocumented in this encounter Care Teams Ground Crewman Mission Support Relationship Specialty Start Date End Date Nikki Alcantar MD [address] [place] [address] PCP - General 06/26/05 03/04/17 Michelle Norris MD [address] [place] [address] PCP - General Internal Medicine 03/05/17 03/16/21 [facility], Pcp [address] [place] [address] PCP - General Internal Medicine 03/17/21 05/04/21 Michelle Norris MD [address] [place] [address] PCP - General Internal Medicine 05/05/21 09/13/22 Rosetta Diamond MD [address] [place] [address] PCP - General Internal Medicine 09/14/22 documented as of this encounter
--- OUTSIDE RECORDS SUMMARY | 2024-12-18 15:25 | XMS_ITS | Encounter Summary ---
Author Organization [facility] Address [address] [place] [address] Care Team Providers Care Auto Collision Repair Instructor Name Role Phone Nikki Alcantar MD Primary Care Provider [phone] Michelle Norris MD Primary Care Provider Unavail [facility] Primary Care Provider [facility] Michelle Norris MD Primary Care Provider Unavail [facility] Rosetta Diamond MD Primary Care Provider + Encounter Details Date Type Department Care Team Description 01/21/2009 Hospital Medical Records [address] [place] [address] Nathaniel Wade MD Social History Tobacco Use [...] filedocumented in this encounter Care Teams Auto Collision Repair Instructor Relationship Specialty Start Date End Date Nikki Alcantar MD [address] [place] [address] PCP - General 06/26/05 03/04/17 Michelle Norris MD [address] [place] [address] PCP - General Internal Medicine 03/05/17 03/16/21 [facility], Pcp [address] [place] [address] PCP - General Internal Medicine 03/17/21 05/04/21 Michelle Norris MD [address] [place] [address] PCP - General Internal Medicine 05/05/21 09/13/22 Rosetta Diamond MD [address] [place] [address] PCP - General Internal Medicine 09/14/22 documented as of this encounter
--- OUTSIDE RECORDS SUMMARY | 2024-12-18 15:25 | XMS_ITS | Encounter Summary ---
Author Organization [facility] Address [address] [place] [address] Care Team Providers Care Temporary Administrative Assistant Name Role Phone Nikki Alcantar MD Primary Care Provider [phone] Michelle Norris MD Primary Care Provider Unavail [facility] Primary Care Provider [facility] Michelle Norris MD Primary Care Provider Unavail [facility] Rosetta Diamond MD Primary Care Provider + Encounter Details Date Type Department Care Team Description 03/28/2016 Hospital Medical Records [address] [place] [address] Social History Tobacco Use Types Packs/Day Years [...] on filedocumented in this encounter Care Teams Temporary Administrative Assistant Relationship Specialty Start Date End Date Nikki Alcantar MD [address] [place] [address] PCP - General 06/26/05 03/04/17 Michelle Norris MD [address] [place] [address] PCP - General Internal Medicine 03/05/17 03/16/21 [facility], Pcp [address] [place] [address] PCP - General Internal Medicine 03/17/21 05/04/21 Michelle Norris MD [address] [place] [address] PCP - General Internal Medicine 05/05/21 09/13/22 Rosetta Diamond MD [address] [place] [address] PCP - General Internal Medicine 09/14/22 documented as of this encounter
--- OUTSIDE RECORDS SUMMARY | 2024-12-18 15:25 | XMS_ITS | Encounter Summary ---
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 [place] [address], [place] [phone] * (ABNORMAL) Acetaminophen level (12/07/2024 7:36 PM EST) Acetaminophen Level <2.0(L) 10.0 - 30.0 mcg/mL LAB CHEMISTRY METHOD 12/07/2024 8:31 PM EST [facility] Blood Venous blood specimen / Unknown Venipuncture / Unknown 12/07/2024 7:36 PM EST 12/07/2024 7:59 PM EST Rolando CAPELLAN LAB BLOOD ORDERABLES Vidya l Result [facility] [address] [place] [address], [place] [phone] * Ethanol (12/07/2024 7:36 PM EST) Pathologist [facility] Ethanol Level <3 0 - 10 mg/dL LAB CHEMISTRY METHOD 12/07/2024 8:29 PM [facility] Blood Venous blood specimen / Unknown Venipuncture / Unknown 12/07/2024 7:36 PM EST 12/07/2024 7:59 PM EST Rolando CAPELLAN LAB BLOOD ORDERABLES Vidya l Result Performing Organization Address City/[facility]/ZIP Co de Phone Number [facility] [address] [place] [address], [place] [phone] * (ABNORMAL) Comprehensive metabolic panel (12/07/2024 7:36 PM EST) Sodium 141 133 - 145 mmol/L LAB CHEMISTRY METHOD 12/07/2024 8:31 PM [facility] Potassium 3.6 3.5 - 5.5 mmol/L LAB CHEMISTRY METHOD 12/07/2024 8:31 PM [facility] Chloride 106 96 - 110 mmol/L LAB CHEMISTRY METHOD 12/07/2024 8:31 PM [facility] CO2 27 21 - 32 mmol/L LAB CHEMISTRY METHOD 12/07/2024 8:31 PM [facility] Anion Gap 8 3 - 11 LAB CHEMISTRY METHOD 12/07/2024 8:31 PM [facility] Glucose 152(H) 70 - 100 mg/dL LAB CHEMISTRY METHOD 12/07/2024 8:31 PM [facility] BUN 12 5 - 25 mg/dL LAB CHEMISTRY METHOD 12/07/2024 8:31 PM [facility] Creatinine 0.74 0.50 - 1.10 mg/dL LAB CHEMISTRY METHOD 12/07/2024 8:31 PM [facility] LAB eGFR 101 >=60 mL/min/1. 73m2 LAB CHEMISTRY METHOD 12/07/2024 8:31 PM [facility] LAB Comment:Calculation based on the??Chronic Kidney Disease Epidemiology Collaboration (CKD-EPI) equation refit??without adjustment for race. BUN/Creatinine Ratio 16.2 LAB CHEMISTRY METHOD 12/07/2024 8:31 PM [facility] Calcium 9.4 8.5 - 10.5 mg/dL LAB CHEMISTRY METHOD 12/07/2024 8:31 PM [facility] LAB AST (SGOT) 29 10 - 42 unit/L LAB CHEMISTRY METHOD 12/07/2024 8:31 PM [facility] ALT (SGPT) 46 10 - 60 unit/L LAB CHEMISTRY METHOD 12/07/2024 8:31 PM [facility] Alkaline Phosphatase 159(H) 42 - 121 unit/L LAB CHEMISTRY METHOD 12/07/2024 8:31 PM [facility] Total Protein 6.9 6.0 - 8.0 g/dL LAB CHEMISTRY METHOD 12/07/2024 8:31 PM [facility] Albumin 3.7 3.2 - 5.0 g/dL LAB CHEMISTRY METHOD 12/07/2024 8:31 PM [facility] Total Bilirubin 0.2 0.0 - 1.4 mg/dL LAB CHEMISTRY METHOD 12/07/2024 8:31 PM [facility] Blood Venous blood specimen / Unknown Venipuncture / Unknown 12/07/2024 7:36 PM EST 12/07/2024 7:59 PM EST us Rolando CAPELLAN LAB BLOOD ORDERABLES Vidya posada Result [facility] [address] [place] [address], documented in this encounter Visit Diagnoses Diagnosis Borderline personality disorder (CMS/HCC)- Primary Borderline personality disorder Self-injurious behavior Unspecified nonpsychotic mental disorder Auditory hallucination Hallucinations Posttraumatic stress disorder documented in this encounter Orders Consult Count Last Ordered Date First Orde red Date IP CONSULT TO APPEALS MANAGER 1 12/07/2024 documented in this encounter Care Teams Plant Maintenance Supervisor Relationship Specialty Start Date End Date Jason Marquez [address] [place] [address]702 PCP - General 09/08/24 documented as of this encounter
--- OUTSIDE RECORDS SUMMARY | 2024-12-18 15:25 | XMS_ITS | Encounter Summary ---
Author Organization [facility] Address [address] [place] [address] Care Team Providers Care Heeler Name Role Phone Nikki Alcantar MD Primary Care Provider [phone] Michelle Norris MD Primary Care Provider Unavail [facility] Primary Care Provider [facility] Michelle Norris MD Primary Care Provider Unavail [facility] Rosetta Diamond MD Primary Care Provider + Encounter Details Date Type Department Care Team Description 02/13/2016 Hospital Medical Records [address] [place] [address] Jose Echols MD Social History Tobacco Use Types Packs/Day [...] on filedocumented in this encounter Care Teams Heeler Relationship Specialty Start Date End Date Nikki Alcantar MD [address] [place] [address] 57597 PCP - General 06/26/05 03/04/17 Michelle Norris MD [address] [place] [address] 14863 PCP - General Internal Medicine 03/05/17 03/16/21 [facility], Pcp [address] [place] [address] 99881 PCP - General Internal Medicine 03/17/21 05/04/21 Michelle Norris MD [address] [place] [address] 66742 PCP - General Internal Medicine 05/05/21 09/13/22 Rosetta Diamond MD [address] [place] [address] PCP - General Internal Medicine 09/14/22 documented as of this encounter
--- OUTSIDE RECORDS SUMMARY | 2024-12-18 15:25 | XMS_ITS | Encounter Summary ---
Author Organization [facility] Address [address] [place] [address] Care Team Providers Care Bank Messenger Name Role Phone Nikki Alcantar MD Primary Care Provider [phone] Michelle Norris MD Primary Care Provider Unavail [facility] Primary Care Provider [facility] Michelle Norris MD Primary Care Provider Unavail [facility] Rosetta Diamond MD Primary Care Provider + Encounter Details Date Type Department Care Team Description 05/06/2009 Hospital Medical Records [address] [place] [phone] Magdalena Boyd MD Social History Tobacco Use [...] on filedocumented in this encounter Care Teams Bank Messenger Relationship Specialty Start Date End Date Nikki Alcantar MD [address] [place] [address]1994 PCP - General 06/26/05 03/04/17 Michelle Norris MD [address] [place] [address] 88193 PCP - General Internal Medicine 03/05/17 03/16/21 [facility], Pcp [address] [place] [address] 19468 PCP - General Internal Medicine 03/17/21 05/04/21 Michelle Norris MD [address] [place] [address] 93366 PCP - General Internal Medicine 05/05/21 09/13/22 Rosetta Diamond MD [address] [place] [address] PCP - General Internal Medicine 09/14/22 documented as of this encounter
--- OUTSIDE RECORDS SUMMARY | 2024-12-18 15:26 | XMS_ITS | Encounter Summary ---
Author Organization [facility] Address [address] [place] [address] Care Team Providers Care Automotive Electrician Name Role Phone Nikki Alcantar MD Primary Care Provider [phone] Michelle Norris MD Primary Care Provider Unavail [facility] Primary Care Provider [facility] Michelle Norris MD Primary Care Provider Unavail [facility] Rosetta Diamond MD Primary Care Provider + Encounter Details Date Type Department Care Team Description 02/16/2012 Hospital Medical Records [address] [place] [address] Subhash Mcdnaiel Social History Tobacco Use Types Packs/Day Years [...] on filedocumented in this encounter Care Teams Automotive Electrician Relationship Specialty Start Date End Date Nikki Alcantar MD [address] [place] [address] 36716 PCP - General 06/26/05 03/04/17 Michelle Norris MD [address] [place] [address] 17620 PCP - General Internal Medicine 03/05/17 03/16/21 [facility], Pcp [address] [place] [address] 84021 PCP - General Internal Medicine 03/17/21 05/04/21 Michelle Norris MD [address] [place] [address] 40760 PCP - General Internal Medicine 05/05/21 09/13/22 Rosetta Diamond MD [address] [place] [address] PCP - General Internal Medicine 09/14/22 documented as of this encounter
--- OUTSIDE RECORDS SUMMARY | 2024-12-18 15:26 | XMS_ITS | Encounter Summary ---
Author Organization [facility] Address [address] [place] [address] Care Team Providers Care Remote Sensing Program Manager Name Role Phone Michelle Norris MD Primary Care Provider [facility]ail [facility] Michelle Norris MD Primary Care Provider Unavail able Rosetta Diamond MD Primary Care Provider + Encounter Details Date Type Department Care Team Description 04/12/2018 Ed Manager Report Medical Records [address] [place] [phone] Abstract, Provider Social History Tobacco Use Types [...] on filedocumented in this encounter Care Teams Remote Sensing Program Manager Relationship Specialty Start Date End Date Michelle Norris MD PCP - General Internal Medicine 03/05/17 03/16/21 [facility], Pcp PCP - General Internal Medicine 03/17/21 05/04/21 Michelle Norris MD PCP - General Internal Medicine 05/05/21 09/13/22 Rosetta Diamond MD [address] [place] [address] PCP - General Internal Medicine 09/14/22 documented as of this encounter
--- OUTSIDE RECORDS SUMMARY | 2024-12-18 15:26 | XMS_ITS | Encounter Summary ---
Author Organization [facility] Address [address] [place] [address] Care Team Providers Care Sort Line Worker Name Role Phone Nikki Alcantar MD Primary Care Provider Michelle Norris MD Primary Care Provider Unavail [facility] Primary Care Provider [facility] Michelle Norris MD Primary Care Provider Unavail [facility] Rosetta Diamond MD Primary Care Provider + Encounter Details Date Type Department Care Team Description 10/26/2014 Hospital Medical Records [address] [place] [address] 26720 Social History Tobacco Use Types Packs/Day Years [...] on filedocumented in this encounter Care Teams Sort Line Worker Relationship Specialty Start Date End Date Nikki Alcantar MD [address] [place] [address] 45383 PCP - General 06/26/05 03/04/17 Michelle Norris MD [address] [place] [address] PCP - General Internal Medicine 03/05/17 03/16/21 [facility], Pcp [address] [place] [address] 91987 PCP - General Internal Medicine 03/17/21 05/04/21 Michelle Norris MD [address] [place] [address] 94203 PCP - General Internal Medicine 05/05/21 09/13/22 Rosetta Diamond MD [address] [place] [address] KARTIK CHEN [address] PCP - General Internal Medicine 09/14/22 documented as of this encounter
--- OUTSIDE RECORDS SUMMARY | 2024-12-18 15:26 | XMS_ITS | Encounter Summary ---
Author Organization [facility] Address [address] [place] [address] Care Team Providers Care Statistical Geneticist Name Role Phone Michelle Norris MD Primary Care Provider [facility]cp [facility] MD Primary Care Provider Unavail able Rosetta Diamond MD Primary Care Provider + Encounter Details Date Type Department Care Team Description 04/13/2018 Hospital Medical Records [address] [place] [address] Social History Tobacco Use Types Packs/Day Years [...] on filedocumented in this encounter Care Teams Statistical Geneticist Relationship Specialty Start Date End Date Michelle Norris MD PCP - General Internal Medicine 03/05/17 03/16/21 [facility], Pcp PCP - General Internal Medicine 03/17/21 05/04/21 Michelle Norris MD PCP - General Internal Medicine 05/05/21 09/13/22 Rosetta Diamond MD [address] [place] [address] PCP - General Internal Medicine 09/14/22 documented as of this encounter
--- OUTSIDE RECORDS SUMMARY | 2024-12-18 15:26 | XMS_ITS | Encounter Summary ---
Author Organization [facility] Address [address] [place] [address] Care Team Providers Care Rn Case Management Name Role Phone Michelle Norris MD Primary Care Provider [facility]ail [facility], Pcp Primary Care Provider Unavailabl e Michelle Norris MD Primary Care Provider Unavail able Rosetta Diamond MD Primary Care Provider + Encounter Details Date Type Department Care Team Description 09/21/2020 Hospital Medical Records [address] [place] [address]26 Ibrahima Ron Social History Tobacco Use Types [...] filedocumented in this encounter Care Teams Rn Case Management Relationship Specialty Start Date End Date Michelle Norris MD PCP - General Internal Medicine 03/05/17 03/16/21 [facility], Pcp PCP - General Internal Medicine 03/17/21 05/04/21 Michelle Norris MD PCP - General Internal Medicine 05/05/21 09/13/22 Rosetta Diamond MD [address] [place] [address] 13692 PCP - General Internal Medicine 09/14/22 documented as of this encounter
--- OUTSIDE RECORDS SUMMARY | 2024-12-18 15:26 | XMS_ITS | Encounter Summary ---
Author Organization [facility] Address [address] [place] [address] Care Team Providers Care Senior Underwriter Name Role Phone Nikki Alcantar MD Primary Care Provider [phone] Michelle Norris MD Primary Care Provider Unavail [facility] Primary Care Provider [facility] Michelle Norris MD Primary Care Provider Unavail [facility] Rosetta Diamond MD Primary Care Provider + Encounter Details Date Type Department Care Team Description 10/19/2011 Hospital Medical Records [address] [place] [phone] Marlen Grande Social History Tobacco Use Types [...] filedocumented in this encounter Care Teams Senior Underwriter Relationship Specialty Start Date End Date Nikki Alcantar MD [address] [place] [address] 22792 PCP - General 06/26/05 03/04/17 Michelle Norris MD [address] [place] [address] 63806 PCP - General Internal Medicine 03/05/17 03/16/21 [facility], Pcp [address] [place] [address] 18815 PCP - General Internal Medicine 03/17/21 05/04/21 Michelle Norris MD [address] [place] [address] 27034 PCP - General Internal Medicine 05/05/21 09/13/22 Rosetta Diamond MD [address] [place] [address]20 PCP - General Internal Medicine 09/14/22 documented as of this encounter
--- OUTSIDE RECORDS SUMMARY | 2024-12-18 15:26 | XMS_ITS | Encounter Summary ---
Author Organization [facility] Address [address] [place] [address] Care Team Providers Care Improvement Coordinator Name Role Phone Michelle Norris MD Primary Care Provider Unavail able [facility] Primary Care Provider Michelle Abdi MD Primary Care Provider Unavail able Rosetta Diamond MD Primary Care Provider + Reason for Visit * Reason Onset Date Comments medication problems 10/01/2020 Encounter Details Date Type Department Care Team Description 10/01/2020 Telephone Adult Medicine [address] [address] Michelle Norris MD medication problems Social History Tobacco Use Types Packs/Day Years [...] encounter Miscellaneous Notes * Telephone Encounter - Sheyla Chaparro M.A. - 10/01/2020 4:12 PM EST Left message for Didi to call back * Telephone Encounter - Michelle Norris MD - 10/01/2020 2:05 PM EST Medication list states 1 puff daily this was fixed last month * Telephone Encounter - Sheyla Chaparro M.A. - 10/01/2020 1:44 PM EST This medication Only has 30 puffs And pt is taking 2 puffs daily. They would need either 2 inhalersat a time or to be taking only one puff. * Telephone Encounter - Dilma Altamirano - 10/01/2020 11:39 AM EST Who is calling? Didi from [facility] Name of the medication Umeclidinium Topping (INCRUSE ELLIPTA) 62.5 MCG/INH AEROSOL POWDER,BREATH ACTIVATED What is the specific problem or interaction? Didi states this medication needs a prior auth andis only covered for 15 days. She is wondering if there is something else Dr. Norris would recommend. States they are looking for something that will be covered for 30 days vs 15 days If the patient is having a problem with taking the med - how long has the problem been going on? N/A documented in this encounter Plan of Treatment Not on file documented as of this encounter Visit Diagnoses Not on filedocumented in this encounter Care Teams Improvement Coordinator Relationship Specialty Start Date End Date Michelle Norris MD PCP - General Internal Medicine 03/05/17 03/16/21 [facility], Pcp PCP - General Internal Medicine 03/17/21 05/04/21 Michelle Norris MD PCP - General Internal Medicine 05/05/21 09/13/22 Rosetta Diamond MD [address] [place] [address] PCP - General Internal Medicine 09/14/22 documented as of this encounter
--- OUTSIDE RECORDS SUMMARY | 2024-12-18 15:26 | XMS_ITS | Encounter Summary ---
Author Organization [facility] Address [address] [place] [address] Care Team Providers Care Acquisitions Editor Name Role Phone Nikki Alcantar MD Primary Care Provider [phone] Michelle Norris MD Primary Care Provider Unavail able [facility] Primary Care Provider [facility] Michelle Norris MD Primary Care Provider Unavail able Rosetta Diamond MD Primary Care Provider + Reason for Visit * Reason Onset Date Comments APPOINTMENT 10/26/2011 missed appointme nt w/Dr Alcantar Encounter Details Date Type Department Care Team Description 10/26/2011 Telephone Adult Medicine [address] [phone] Nikki Alcantar MD [address] [place] [address] [phone] APPOINTMENT (missed appointment w/Dr Alcantar) Social History [...] on filedocumented in this encounter Care Teams Acquisitions Editor Relationship Specialty Start Date End Date Nikki Alcantar MD [address] [place] [address] PCP - General 06/26/05 03/04/17 Michelle Norris MD [address] [place] [address] PCP - General Internal Medicine 03/05/17 03/16/21 [place] [address] PCP - General Internal Medicine 03/17/21 05/04/21 Michelle Norris MD [address] [place] [address] PCP - General Internal Medicine 05/05/21 09/13/22 Rosetta Diamond MD [address] [place] [address] PCP - General Internal Medicine 09/14/22 documented as of this encounter
--- OUTSIDE RECORDS SUMMARY | 2024-12-18 15:26 | XMS_ITS | Encounter Summary ---
Author Organization [facility] Address [address] [place] [address] Care Team Providers Care Recreational Therapist Name Role Phone Michelle Norris MD Primary Care Provider Unavail able [facility] Michelle Lagos MD Primary Care Provider Unavail able Rosetta Diamond MD Primary Care Provider + Reason for Visit * Reason Onset Date Comments Call From Hospital 06/18/2018 Encounter Details Date Type Department Care Team Description 06/18/2018 Telephone Adult Medicine [address] [phone] Michelle Norris MD Call From Hospital Social [...] callers name? Aurea Callers relationship to patient? [facility] health unit If person calling is not the patient themselves, is there a verbal release in FYI or permanent comments for this person: NO Reason for call back: FYI, wants to inform Dr Griffiths that patient was [facility] on 06/13/2018. Caller offered to speak with the nurse for assistance: YES Response: Patient offered to speak with nurse for assistance and patient agreed. Message forwarded to nurse. documented in this encounter Plan of Treatment Not on file documented as of this encounter Visit Diagnoses Not on filedocumented in this encounter Care Teams Recreational Therapist Relationship Specialty Start Date End Date Michelle Norris MD PCP - General Internal Medicine 03/05/17 03/16/21 [facility] PCP - General Internal Medicine 03/17/21 05/04/21 Michelle Norris MD PCP - General Internal Medicine 05/05/21 09/13/22 Rosetta Diamond MD [address] [place] [address] PCP - General Internal Medicine 09/14/22 documented as of this encounter
--- OUTSIDE RECORDS SUMMARY | 2024-12-18 15:26 | XMS_ITS | Encounter Summary ---
Author Organization [facility] Address [address] [place] [address] Care Team Providers Care Forge Utility Worker Name Role Phone Michelle Norris MD Primary Care Provider Unavail [facility], Pcp Primary Care Provider Unavailabl e Michelle Norris MD Primary Care Provider Unavail able Rosetta Diamond MD Primary Care Provider + Encounter Details Date Type Department Care Team Description 09/09/2018 Hospital Medical Records [address] [place] [phone] Jefe Robison NP Social History Tobacco Use [...] on filedocumented in this encounter Care Teams Forge Utility Worker Relationship Specialty Start Date End Date Michelle Norris MD PCP - General Internal Medicine 03/05/17 03/16/21 [facility], Pcp PCP - General Internal Medicine 03/17/21 05/04/21 Michelle Norris MD PCP - General Internal Medicine 05/05/21 09/13/22 Rosetta Diamond MD [address] [place] [address] PCP - General Internal Medicine 09/14/22 documented as of this encounter
--- OUTSIDE RECORDS SUMMARY | 2024-12-18 15:26 | XMS_ITS | Encounter Summary ---
Author Organization [facility] Address [address] [place] [address] Care Team Providers Care Lieutenant Colonel Name Role Phone Michelle Norris MD Primary Care Provider Unavail able [facility] Michelle Lagos MD Primary Care Provider Unavail able Rosetta Diamond MD Primary Care Provider + Reason for Visit * Reason Comments E-prescribe Rx Request Encounter Details Date Type Department Care Team Description 08/11/2018 Refill OBGYN - [place] [address] [place] [address] Chel Stapleton CNM [address] [place], [place] [id number] E-prescribe Rx Request Social History Tobacco Use [...] EDT WHEN WAS THE PATIENTS LAST ANNUAL SLOT OPERATIONS MANAGER EXAM? 07/19/17 Does patient have an upcoming [...] / Plan: [place] / Product Type: MEDICARE [id number] documented in this encounter Plan of Treatment Not on file documented as of this encounter Visit Diagnoses Diagnosis Encounter for initial prescription of contraceptive pills General counseling for prescription of oral contraceptives documented in this encounter Care Teams Lieutenant Colonel Relationship Specialty Start Date End Date Michelle Norris MD PCP - General Internal Medicine 03/05/17 03/16/21 [facility] PCP - General Internal Medicine 03/17/21 05/04/21 Michelle Norris MD PCP - General Internal Medicine 05/05/21 09/13/22 Rosetta Diamond MD [address] [place] [address] PCP - General Internal Medicine 09/14/22 documented as of this encounter
--- OUTSIDE RECORDS SUMMARY | 2024-12-18 15:26 | XMS_ITS | Encounter Summary ---
Author Organization [facility] Address [address] [place] [address] Care Team Providers Care Authorization Representative Name Role Phone Michelle Norris MD Primary Care Provider Unavail able [facility], Pcp [facility] Michelle Lagos MD Primary Care Provider Unavail able Rosetta Diamond MD Primary Care Provider + Reason for Visit * Reason Onset Date Comments hospital follow up 01/31/2018 Encounter Details Date Type Department Care Team Description 01/31/2018 Telephone Adult Medicine [address] [address] Michelle Norris MD hospital follow up Social [...] Telephone Encounter - Daniela Chapa R.N - 01/31/2018 11:52 AM EDT Called kimi and hosp fu for 02/08/18 at 1330 with Notes requested * Telephone Encounter - Megan Newton - 01/31/2018 11:40 AM EDT Hospital follow up appointment needed Kimi asking for a call ayana as patient is d/c at 1pm. She will fax notes Hospital patient was treated at: [facility] Was this only an ER visit or was the patient admitted to the hospital? Admitted to hospital Date of visit if ER visit only: If patient was admitted what was the date of discharge? Today at 1pm Reason/diagnosis for visit or stay: ptsd and borderline personality disorder When was the patient told to follow up? week Was visit or stay related to an injury? NO If yes, what was the date of injury (DOI)? N/A If yes, was the injury due to N/A documented in this encounter Plan of Treatment Not on file documented as of this encounter Visit Diagnoses Not on filedocumented in this encounter Care Teams Authorization Representative Relationship Specialty Start Date End Date Michelle Norris MD PCP - General Internal Medicine 03/05/17 03/16/21 [facility] PCP - General Internal Medicine 03/17/21 05/04/21 Michelle Norris MD PCP - General Internal Medicine 05/05/21 09/13/22 Rosetta Diamond MD [address] [place] [id number] PCP - General Internal Medicine 09/14/22 documented as of this encounter
--- OUTSIDE RECORDS SUMMARY | 2024-12-18 15:26 | XMS_ITS | Encounter Summary ---
Author Organization [facility] Address [address] [place] [address] Care Team Providers Care Women'S Activities Adviser Name Role Phone Katherine Norris MD Primary Care Provider Unavail able [facility], Pcp Primary Care Provider Katherine Abdi MD Primary Care Provider Unavail able Rosetta Diamond MD Primary Care Provider + Reason for Visit * Reason Onset Date Comments Information Needed 03/16/2020 Encounter Details Date Type Department Care Team Description 03/16/2020 Telephone Adult [address] [address] Katherine Norris MD Information Needed Social History Tobacco Use Types Packs/Day Years [...] * Telephone Encounter - Emerald Chavarria - 03/16/2020 10:37 AM EDT Patient is admitted to [facility] just a FYI to KATHERINE NORRIS documented in this encounter Plan of Treatment Not on file documented as of this encounter Visit Diagnoses Not on filedocumented in this encounter Care Teams Women'S Activities Adviser Relationship Specialty Start Date End Date Katherine Norris MD PCP - General Internal Medicine 03/05/17 03/16/21 [facility], Pcp PCP - General Internal Medicine 03/17/21 05/04/21 Katherine Norris MD PCP - General Internal Medicine 05/05/21 09/13/22 Rosetta Diamond MD [address] [place] [address] PCP - General Internal Medicine 09/14/22 documented as of this encounter
--- OUTSIDE RECORDS SUMMARY | 2024-12-18 15:26 | XMS_ITS | Encounter Summary ---
Author Organization [facility] Address [address] [place] [address] Care Team Providers Care Manager Supply Chain Planning Name Role Phone Michelle Norris MD Primary Care Provider Unavail able [facility], Pcp [facility] Michelle Norris MD Primary Care Provider Unavail able Rosetta Diamond MD Primary Care Provider + Encounter Details Date Type Department Care Team Description 05/08/2018 Hospital Medical Records [address] [place] [id number] Abstract, Provider Social History Tobacco Use Types [...] filedocumented in this encounter Care Teams Manager Supply Chain Planning Relationship Specialty Start Date End Date Michelle Norris MD PCP - General Internal Medicine 03/05/17 03/16/21 [facility]cp PCP - General Internal Medicine 03/17/21 05/04/21 Michelle Norris MD PCP - General Internal Medicine 05/05/21 09/13/22 Rosetta Diamond MD [address] [place] [address] PCP - General Internal Medicine 09/14/22 documented as of this encounter
--- OUTSIDE RECORDS SUMMARY | 2024-12-18 15:26 | XMS_ITS | Encounter Summary ---
Author Organization [facility] Address [address] [place] [address] Care Team Providers Care Remelter Name Role Phone Nikki Alcantar MD Primary Care Provider [phone] Michelle Norris MD Primary Care Provider Unavail [facility] Primary Care Provider [facility] Michelle Norris MD Primary Care Provider [facility] Rosetta Diamond MD Primary Care Provider + Encounter Details Date Type Department Care Team Description 07/16/2014 Transfer Records Medical Records [address] [place] [address] Social History Tobacco Use Types Packs/Day Years [...] on filedocumented in this encounter Care Teams Remelter Relationship Specialty Start Date End Date Nikki Alcantar MD [address] [place] [address] PCP - General 06/26/05 03/04/17 Michelle Norris MD [address] [place] [address] PCP - General Internal Medicine 03/05/17 03/16/21 [facility], Pcp [address] [place] [address] PCP - General Internal Medicine 03/17/21 05/04/21 Michelle Norris MD [address] [place] [address] [place] [address] PCP - General Internal Medicine 05/05/21 09/13/22 Rosetta Diamond MD [address] [place], [place] [phone] PCP - General Internal Medicine 09/14/22 documented as of this encounter
--- OUTSIDE RECORDS SUMMARY | 2024-12-18 15:26 | XMS_ITS | Encounter Summary ---
Author Organization [facility] Address [address] [place] [address] Care Team Providers Care Flea Market Seller Name Role Phone Michelle Norris MD Primary Care Provider Unavail able [facility], Pcp Primary Care Provider [facility] Michelle Norris MD Primary Care Provider Unavail able Rosetta Diamond MD Primary Care Provider + Encounter Details Date Type Department Care Team Description 08/30/2018 Business Doc Medical Records [address] [place] [address] Abstract, Provider Social History Tobacco Use Types [...] on filedocumented in this encounter Care Teams Flea Market Seller Relationship Specialty Start Date End Date Michelle Norris MD PCP - General Internal Medicine 03/05/17 03/16/21 [facility], Pcp PCP - General Internal Medicine 03/17/21 05/04/21 Michelle Norris MD PCP - General Internal Medicine 05/05/21 09/13/22 Rosetta Diamond MD [address] [place] [address] PCP - General Internal Medicine 09/14/22 documented as of this encounter
--- OUTSIDE RECORDS SUMMARY | 2024-12-18 15:26 | XMS_ITS | Encounter Summary ---
Author Organization [facility] Address [address] [place] [address] Care Team Providers Care Telegraph Messenger Name Role Phone Michelle Norris MD Primary Care Provider Unavail able [facility], Pcp [facility] Michelle Norris MD Primary Care Provider Unavail able Rosetta Diamond MD Primary Care Provider + Encounter Details Date Type Department Care Team Description 03/27/2020 Hospital Medical Records [address] [place] [address] Angelique Moore Social History Tobacco Use Types [...] on filedocumented in this encounter Care Teams Telegraph Messenger Relationship Specialty Start Date End Date Michelle Norris MD PCP - General Internal Medicine 03/05/17 03/16/21 [facility], Pcp PCP - General Internal Medicine 03/17/21 05/04/21 Michelle Norris MD PCP - General Internal Medicine 05/05/21 09/13/22 Rosetta Diamond MD [address] [place] [address] PCP - General Internal Medicine 09/14/22 documented as of this encounter
--- OUTSIDE RECORDS SUMMARY | 2024-12-18 15:26 | XMS_ITS | Encounter Summary ---
Author Organization [facility] Address [address] [place] [address] Care Team Providers Care Client Professional Name Role Phone Michelle Norris MD Primary Care Provider Unavail able [facility], Pcp [facility] Michelle Norris MD Primary Care Provider Unavail able Rosetta Diamond MD Primary Care Provider + Encounter Details Date Type Department Care Team Description 03/10/2020 Hospital Medical Records [address] [place] [address] Marlen Grande Social History Tobacco Use Types [...] filedocumented in this encounter Care Teams Client Professional Relationship Specialty Start Date End Date Michelle Norris MD PCP - General Internal Medicine 03/05/17 03/16/21 [facility], Pcp PCP - General Internal Medicine 03/17/21 05/04/21 Michelle Norris MD PCP - General Internal Medicine 05/05/21 09/13/22 Rosetta Diamond MD [address] [place] [address] PCP - General Internal Medicine 09/14/22 documented as of this encounter
--- OUTSIDE RECORDS SUMMARY | 2024-12-18 15:26 | XMS_ITS | Encounter Summary ---
Author Organization [facility] Address [address] [place] [address] Care Team Providers Care Servicenow Administrator Developer Name Role Phone Michelle Norris MD Primary Care Provider Unavail able [facility] Michelle Norris MD Primary Care Provider Unavail able Rosetta Diamond MD Primary Care Provider + Encounter Details Date Type Department Care Team Description 10/07/2018 Hospital Medical Records [address] [place] [address] Errol Snyder [address] [place] [address] [id number] Social History Tobacco Use Types Packs/Day Years [...] on filedocumented in this encounter Care Teams Servicenow Administrator Developer Relationship Specialty Start Date End Date Michelle Norris MD PCP - General Internal Medicine 03/05/17 03/16/21 [facility], Pcp PCP - General Internal Medicine 03/17/21 05/04/21 Michelle Norris MD PCP - General Internal Medicine 05/05/21 09/13/22 Rosetta Diamond MD [address] [place], [place] [phone] PCP - General Internal Medicine 09/14/22 documented as of this encounter
--- OUTSIDE RECORDS SUMMARY | 2024-12-18 15:26 | XMS_ITS | Encounter Summary ---
Author Organization [facility] Address [address] [place] [address] Care Team Providers Care Clipper Counters Name Role Phone Michelle Norris MD Primary Care Provider Unavail able [facility], Pcp Primary Care Provider [facility] Michelle Lagos MD Primary Care Provider Unavail able Rosetta Diamond MD Primary Care Provider + Reason for Visit * Reason Onset Date Comments other 05/02/2018 hospital admissi on [facility] Care Encounter Details Date Type Department Care Team Description 05/02/2018 Telephone Adult Medicine [address] [address] Michelle Norris MD other (hospital admission - [facility]) Social History Tobacco Use Types Packs/Day Years [...] Miscellaneous Notes * Telephone Encounter - Sridevi Raymundo R.N. - 05/16/2018 1:49 PM EDT [facility] called to confirm Hosp f/u appt on 05/22 at 1:30. She will fax hospital notes to [phone] * Telephone Encounter - Sridevi Raymundo R.N. - 05/16/2018 12:17 PM EDT I left a message for Paradise from [facility] at [phone] to return my call. Pt has hosp f/u appt 05/22 at 1:30 with pcp. * Telephone Encounter - Sridevi Toscano - 05/16/2018 10:43 AM EDT [facility] Returning call * Telephone Encounter - Sho Souza - 05/02/2018 4:56 PM EDT Patient was admitted on 05-01-18 to [facility] dx: suicidal ideation with aplan. documented in this encounter Plan of Treatment Not on file documented as of this encounter Visit Diagnoses Not on filedocumented in this encounter Care Teams Clipper Counters Relationship Specialty Start Date End Date Michelle Norris MD PCP - General Internal Medicine 03/05/17 03/16/21 [facility] PCP - General Internal Medicine 03/17/21 05/04/21 Michelle Norris MD PCP - General Internal Medicine 05/05/21 09/13/22 Rosetta Diamond MD [address] [place] [address] PCP - General Internal Medicine 09/14/22 documented as of this encounter
--- OUTSIDE RECORDS SUMMARY | 2024-12-18 15:26 | XMS_ITS | Encounter Summary ---
Author Organization [facility] Address [address] [place] [address] Care Team Providers Care Regional Merchandising Manager Name Role Phone Nikki Alcantar MD Primary Care Provider [phone] Michelle Norris MD Primary Care Provider Unavail [facility], [facility] Primary Care Provider [facility] Michelle Norris MD Primary Care Provider Unavail [facility] Rosetta Diamond MD Primary Care Provider + Encounter Details Date Type Department Care Team Description 02/11/2015 Hospital Medical Records [address] [place] [address] Social History Tobacco Use Types Packs/Day Years [...] on filedocumented in this encounter Care Teams Regional Merchandising Manager Relationship Specialty Start Date End Date Nikki Alcantar MD [address] [place] [address] PCP - General 06/26/05 03/04/17 Michelle Norris MD [address] [place] [address] PCP - General Internal Medicine 03/05/17 03/16/21 [facility] Pcp [address] [place] [address] PCP - General Internal Medicine 03/17/21 05/04/21 Michelle Norris MD [address] [place] [address] PCP - General Internal Medicine 05/05/21 09/13/22 Rosetta Diamond MD [address] [place] [address] KARTIK CHEN [address] PCP - General Internal Medicine 09/14/22 documented as of this encounter
--- OUTSIDE RECORDS SUMMARY | 2024-12-18 15:26 | XMS_ITS | Encounter Summary ---
Author Organization [facility] Address [address] [place] [address] Care Team Providers Care Dispatcher Refinery Name Role Phone Michelle Norris MD Primary Care Provider Unavail able [facility] Primary Care [facility] Michelle Lagos MD Primary Care Provider Unavail able Rosetta Diamond MD Primary Care Provider + Reason for Visit * Reason Onset Date Comments [facility] Call 12/10/2018 Encounter Details Date Type Department Care Team Description 12/10/2018 Telephone Adult Medicine [address] [address] Michelle Norris MD [facility] Call Social History [...] Saenz R.N. - 12/10/2018 2:[address] [facility] is resuming care with this pt , she was hospitalized for PTSD and has a director day care center and therapist , I made an appointment [...] on filedocumented in this encounter Care Teams Dispatcher Refinery Relationship Specialty Start Date End Date Michelle Norris MD PCP - General Internal Medicine 03/05/17 03/16/21 [facility] PCP - General Internal Medicine 03/17/21 05/04/21 Michelle Norris MD PCP - General Internal Medicine 05/05/21 09/13/22 Rosetta Diamond MD [address] [place] [address] PCP - General Internal Medicine 09/14/22 documented as of this encounter
--- OUTSIDE RECORDS SUMMARY | 2024-12-18 15:26 | XMS_ITS | Encounter Summary ---
Author Organization [facility] Address [address] [place] [address] Care Team Providers Care Tea Taster Name Role Phone Nikki Alcantar MD Primary Care Provider [phone] Michelle Norris MD Primary Care Provider Unavail [facility], [facility] Primary Care Provider [facility] Michelle Norris MD Primary Care Provider Unavail [facility] Rosetta Diamond MD Primary Care Provider + Encounter Details Date Type Department Care Team Description 10/28/2014 Hospital Medical Records [address] [place] [address] Social History Tobacco Use Types Packs/Day Years [...] on filedocumented in this encounter Care Teams Tea Taster Relationship Specialty Start Date End Date Nikki Alcantar MD [address] [place] [address] PCP - General 06/26/05 03/04/17 Michelle Norris MD [address] [place] [address] PCP - General Internal Medicine 03/05/17 03/16/21 [facility], Pcp [address] [place] [address] PCP - General Internal Medicine 03/17/21 05/04/21 Michelle Norris MD [address] [place] [address] PCP - General Internal Medicine 05/05/21 09/13/22 Rosetta Diamond MD [address] [place] [address] KARTIK CHEN [address] PCP - General Internal Medicine 09/14/22 documented as of this encounter
--- OUTSIDE RECORDS SUMMARY | 2024-12-18 15:26 | XMS_ITS | Encounter Summary ---
Author Organization [facility] Address [address] [place] [address] Care Team Providers Care Recreation Therapy Director Name Role Phone Nikki Alcantar MD Primary Care Provider [phone] Michelle Norris MD Primary Care Provider Unavail [facility] Primary Care Provider [facility] Michelle Norris MD Primary Care Provider Unavail [facility] Rosetta Diamond MD Primary Care Provider + Encounter Details Date Type Department Care Team Description 11/23/2011 Hospital Medical Records [address] [place] [address] Jose Echols MD Social History Tobacco Use [...] on filedocumented in this encounter Care Teams Recreation Therapy Director Relationship Specialty Start Date End Date Nikki Alcantar MD [address] [place] [address] PCP - General 06/26/05 03/04/17 Michelle Norris MD [address] [place] [address] PCP - General Internal Medicine 03/05/17 03/16/21 [facility], Pcp [address] [place] [address] PCP - General Internal Medicine 03/17/21 05/04/21 Michelle Norris MD [address] [place] [address] PCP - General Internal Medicine 05/05/21 09/13/22 Rosetta Diamond MD [address] [place] [address] PCP - General Internal Medicine 09/14/22 documented as of this encounter
--- OUTSIDE RECORDS SUMMARY | 2024-12-18 15:26 | XMS_ITS | Encounter Summary ---
Author Organization [facility] Address [address] [place] [address] Care Team Providers Care Stamping Die Maker Name Role Phone Michelle Norris MD Primary Care Provider Unavail able [facility], Pcp [facility] Michelle Norris MD Primary Care Provider Unavail able Rosetta Diamond MD Primary Care Provider + Encounter Details Date Type Department Care Team Description 04/15/2018 Hospital Medical Records [address] [place] [address] Social History Tobacco Use Types Packs/Day Years [...] on filedocumented in this encounter Care Teams Stamping Die Maker Relationship Specialty Start Date End Date Michelle Norris MD PCP - General Internal Medicine 03/05/17 03/16/21 [facility], Pcp PCP - General Internal Medicine 03/17/21 05/04/21 Michelle Norris MD PCP - General Internal Medicine 05/05/21 09/13/22 Rosetta Diamond MD [address] [place] [address] PCP - General Internal Medicine 09/14/22 documented as of this encounter
--- OUTSIDE RECORDS SUMMARY | 2024-12-18 15:26 | XMS_ITS | Encounter Summary ---
Author Organization [facility] Address [address] [place] [address] Care Team Providers Care Out Of School Hours Care Worker Name Role Phone Nikki Alcantar MD Primary Care Provider [phone] Michelle Norris MD Primary Care Provider Unavail able [facility] Primary Care Provider [facility] Michelle Norris MD Primary Care Provider Unavail able Rosetta Diamond MD Primary Care Provider + Reason for Visit * Reason Onset Date Comments Call From Hospital 08/26/2014 Encounter Details Date Type Department Care Team Description 08/26/2014 Telephone Adult Medicine [address] [phone] Nikki Alcantar MD [address] [place] [address] [phone] Call From Hospital Social History Tobacco Use [...] Rebecca Terry - 08/26/2014 3:30 PM EST [facility] has admitted patient. Any questions call tammy at [phone] documented in this encounter Plan of Treatment Not on file documented as of this encounter Visit Diagnoses Not on filedocumented in this encounter Care Teams Out Of School Hours Care Worker Relationship Specialty Start Date End Date Nikki Alcantar MD [address] [place] [address] PCP - General 06/26/05 03/04/17 Michelle Norris MD [address] [place] [address] PCP - General Internal Medicine 03/05/17 03/16/21 [place] [address] PCP - General Internal Medicine 03/17/21 05/04/21 Michelle Norris MD [address] [place] [address] PCP - General Internal Medicine 05/05/21 09/13/22 Rosetta Diamond MD [address] [place] [address] PCP - General Internal Medicine 09/14/22 documented as of this encounter
--- OUTSIDE RECORDS SUMMARY | 2024-12-18 15:26 | XMS_ITS | Encounter Summary ---
Author Organization [facility] Address [address] [place] [address] Care Team Providers Care Crusher Supervisor Name Role Phone Nikki Alcantar MD Primary Care Provider [phone] Michelle Norris MD Primary Care Provider Unavail [facility], [facility] Primary Care Provider [facility] Michelle Norris MD Primary Care Provider Unavail [facility] Rosetta Diamond MD Primary Care Provider + Encounter Details Date Type Department Care Team Description 02/10/2015 Hospital Medical Records [address] [place] [id number] Social History Tobacco Use Types Packs/Day Years [...] on filedocumented in this encounter Care Teams Crusher Supervisor Relationship Specialty Start Date End Date Nikki Alcantar MD [address] [place] [id number] PCP - General 06/26/05 03/04/17 Michelle Norris MD [address] [place] [address] PCP - General Internal Medicine 03/05/17 03/16/21 [facility], Pcp [address] [place] [id number] PCP - General Internal Medicine 03/17/21 05/04/21 Michelle Norris MD [address] [place] [phone] PCP - General Internal Medicine 05/05/21 09/13/22 Rosetta Diamond MD [address] [place] [address] KARTIK CHEN [id number] PCP - General Internal Medicine 09/14/22 documented as of this encounter
--- OUTSIDE RECORDS SUMMARY | 2024-12-18 15:26 | XMS_ITS | Encounter Summary ---
Author Organization [facility] Address [address] [place] [address] Care Team Providers Care Tobacco Drummer Name Role Phone Nikki Alcantar MD Primary Care Provider [phone] Michelle Norris MD Primary Care Provider Unavail able [facility] Primary Care Provider [facility] Michelle Norris MD Primary Care Provider Unavail [facility] Rosetta Diamond MD Primary Care Provider + Encounter Details Date Type Department Care Team Description 09/12/2011 Hospital Medical Records [address] [place] [id number] Bandar Ryan [address] [facility] [address] [place] [address] Social History Tobacco Use Types Packs/Day Years [...] on filedocumented in this encounter Care Teams Tobacco Drummer Relationship Specialty Start Date End Date Nikki Alcantar MD [address] [place] [id number] PCP - General 06/26/05 03/04/17 Michelle Norrsi MD [address] [place] [id number] PCP - General Internal Medicine 03/05/17 03/16/21 [facility], Pcp [address] [place] [address] PCP - General Internal Medicine 03/17/21 05/04/21 Michelle Norris MD [address] [place] [address] PCP - General Internal Medicine 05/05/21 09/13/22 Rosetta Diamond MD [address] [place] [address] PCP - General Internal Medicine 09/14/22 documented as of this encounter
--- OUTSIDE RECORDS SUMMARY | 2024-12-18 15:27 | XMS_ITS | Encounter Summary ---
Author Organization [facility] Address [address] [place] [address] Care Team Providers Care Direct Marketing Coordinator Name Role Phone Michelle Norris MD Primary Care Provider Unavail able Rosetta Diamond MD Primary Care Provider + Encounter Details Date Type Department Care Team Description 06/09/2021 Business Doc Medical Records [address] [place] [id number] Abstract, Provider Social History Tobacco Use Types [...] or suspected to have Coronavirus / COVID-19? No / Unsure 06/07/2021 12:52 PM EDT documented as of this encounter Plan of Treatment Not on file documented as of this encounter Visit Diagnoses Not on filedocumented in this encounter Care Teams Direct Marketing Coordinator Relationship Specialty Start Date End Date Michelle Norris MD PCP - General Internal Medicine 05/05/21 09/13/22 Rosetta Diamond MD [address] [place] [phone] PCP - General Internal Medicine 09/14/22 documented as of this encounter
--- OUTSIDE RECORDS SUMMARY | 2024-12-18 15:27 | XMS_ITS | Encounter Summary ---
Author Organization [facility] Address [address] [place] [address] Care Team Providers Care Topographic Computator Name Role Phone Michelle Norris MD Primary Care Provider Unavail [facility] MD Primary Care Provider Unavail able Rosetta Diamond MD Primary Care Provider + Encounter Details Date Type Department Care Team Description 10/16/2017 Hospital Medical Records [address] [place] [id number] Carlos Landrum Social History Tobacco Use Types [...] on filedocumented in this encounter Care Teams Topographic Computator Relationship Specialty Start Date End Date Michelle Norris MD PCP - General Internal Medicine 03/05/17 03/16/21 [facility], Pcp PCP - General Internal Medicine 03/17/21 05/04/21 Michelle Norris MD PCP - General Internal Medicine 05/05/21 09/13/22 Rosetta Diamond MD [address] [place] [phone] PCP - General Internal Medicine 09/14/22 documented as of this encounter
--- OUTSIDE RECORDS SUMMARY | 2024-12-18 15:27 | XMS_ITS | Encounter Summary ---
Author Organization [facility] Address [address] [place] [address] Care Team Providers Care Client Partner Name Role Phone Michelle Norris MD Primary Care Provider Unavail able [facility] MD Primary Care Provider Unavail able Rosetta Diamond MD Primary Care Provider + Encounter Details Date Type Department Care Team Description 10/16/2017 Hospital Medical Records [address] [place] [id number] Marlen Grande Social History Tobacco Use Types [...] filedocumented in this encounter Care Teams Client Partner Relationship Specialty Start Date End Date Michelle Norris MD PCP - General Internal Medicine 03/05/17 03/16/21 [facility], Pcp PCP - General Internal Medicine 03/17/21 05/04/21 Michelle Norris MD PCP - General Internal Medicine 05/05/21 09/13/22 Rosetta Diamond MD [address] [place] [address] PCP - General Internal Medicine 09/14/22 documented as of this encounter
--- OUTSIDE RECORDS SUMMARY | 2024-12-18 15:27 | XMS_ITS | Encounter Summary ---
Author Organization [facility] Address [address] [place] [address] Care Team Providers Care Calender Inspector Name Role Phone Michelle Norris MD Primary Care Provider Unavail able Rosetta Diamond MD Primary Care Provider + Encounter Details Date Type Department Care Team Description 06/15/2022 Business Doc Medical Records [address] [place] [id number] Abstract, Provider Social History Tobacco Use Types [...] on filedocumented in this encounter Care Teams Calender Inspector Relationship Specialty Start Date End Date Michelle Norris MD PCP - General Internal Medicine 05/05/21 09/13/22 Rosetta Diamond MD [address] [place] [address] [id number] PCP - General Internal Medicine 09/14/22 documented as of this encounter
--- OUTSIDE RECORDS SUMMARY | 2024-12-18 15:27 | XMS_ITS | Encounter Summary ---
Author Organization [facility] Address [address] [place] [address] Care Team Providers Care Instructor Adjunct Pharmacy Technician Name Role Phone Michelle Norris MD Primary Care Provider Unavail able Rosetta Diamond MD Primary Care Provider + Encounter Details Date Type Department Care Team Description 05/17/2021 Engineering Analyst Report Medical Records [address] [place] [id number] Robby Bazan Social History Tobacco Use Types [...] on filedocumented in this encounter Care Teams Instructor Adjunct Pharmacy Technician Relationship Specialty Start Date End Date Michelle Norris MD PCP - General Internal Medicine 05/05/21 09/13/22 Rosetta Diamond MD [address] [place] [address] PCP - General Internal Medicine 09/14/22 documented as of this encounter
--- OUTSIDE RECORDS SUMMARY | 2024-12-18 15:27 | XMS_ITS | Encounter Summary ---
Author Organization [facility] Address [address] [place] [address] Care Team Providers Care Real Estate Valuer Name Role Phone Michelle Norris MD Primary Care Provider Unavail able Rosetta Diamond MD Primary Care Provider + Encounter Details Date Type Department Care Team Description 05/17/2021 Hospital Medical Records [address] [place] [phone] Robby Bazan Social History Tobacco Use Types [...] in this encounter Care Teams Real Estate Valuer Relationship Specialty Start Date End Date Michelle Norris MD PCP - General Internal Medicine 05/05/21 09/13/22 Rosetta Diamond MD [address] [place] [phone] PCP - General Internal Medicine 09/14/22 documented as of this encounter
--- OUTSIDE RECORDS SUMMARY | 2024-12-18 15:27 | XMS_ITS | Encounter Summary ---
Author Organization [facility] Address [address] [place] [address] Care Team Providers Care Patient Advocate Name Role Phone Katherine Norris MD Primary Care Provider Unavail able [facility], [facility] Katherine Lagos MD Primary Care Provider Unavail able Rosetta Diamond MD Primary Care Provider + Reason for Visit * Reason Onset Date Comments hospital follow up 10/16/2017 Encounter Details Date Type Department Care Team Description 10/16/2017 Telephone Adult Medicine [address] [address] Katherine Norris MD hospital follow up Social [...] 1030 with KATHERINE FINE Pt seen at [facility] for crisis notes requested * Telephone Encounter - Deanna Oglesby - 10/16/2017 11:53 AM EST Hospital follow up appointment needed Hospital patient was treated at: [facility] Was this only an ER visit or [...] on filedocumented in this encounter Care Teams Patient Advocate Relationship Specialty Start Date End Date Katherine Norris MD PCP - General Internal Medicine 03/05/17 03/16/21 [facility] PCP - General Internal Medicine 03/17/21 05/04/21 Katherine Norris MD PCP - General Internal Medicine 05/05/21 09/13/22 Rosetta Diamond MD [address] [place] [id number] PCP - General Internal Medicine 09/14/22 documented as of this encounter
--- OUTSIDE RECORDS SUMMARY | 2024-12-18 15:27 | XMS_ITS | Encounter Summary ---
Author Organization [facility] Address [address] [place] [address] Care Team Providers Care Networking Engineer Name Role Phone Michelle Norris MD Primary Care Provider Unavail able [facility] Michelle Lagos MD Primary Care Provider Unavail able Rosetta Diamond MD Primary Care Provider + Reason for Visit * Reason Onset Date Comments [facility] Call 02/24/2021 Encounter Details Date Type Department Care Team Description 02/24/2021 Telephone Adult Medicine [address] [address] Michelle Norris MD VNA Call Social History [...] know that the patient was sent to [facility]'s Er on 02/21/21. Does caller need an urgent call back? NO Was CONTACT Telephone # obtained above?: YES Fax #: documented in this encounter Plan of Treatment Not on file documented as of this encounter Visit Diagnoses Not on filedocumented in this encounter Care Teams Networking Engineer Relationship Specialty Start Date End Date Michelle Norris MD PCP - General Internal Medicine 03/05/17 03/16/21 [facility] PCP - General Internal Medicine 03/17/21 05/04/21 Michelle Norris MD PCP - General Internal Medicine 05/05/21 09/13/22 Rosetta Diamond MD [address] [place] [phone] PCP - General Internal Medicine 09/14/22 documented as of this encounter
--- OUTSIDE RECORDS SUMMARY | 2024-12-18 15:27 | XMS_ITS | Encounter Summary ---
Author Organization [facility] Address [address] [place] [address] Care Team Providers Care Orderlies Teacher Name Role Phone Michelle Norris MD Primary Care Provider Unavail able [facility], Pcp [facility] Michelle Lagos MD Primary Care Provider Unavail able Rosetta Diamond MD Primary Care Provider + Reason for Visit * Reason Onset Date Comments hospital follow up 08/29/2017 Encounter Details Date Type Department Care Team Description 08/29/2017 Telephone Adult Medicine [address] [address] Michelle Norris MD hospital follow up Social [...] appointment needed Hospital patient was treated at: [facility] Was this only an ER visit or [...] on filedocumented in this encounter Care Teams Orderlies Teacher Relationship Specialty Start Date End Date Michelle Norris MD PCP - General Internal Medicine 03/05/17 03/16/21 [facility] PCP - General Internal Medicine 03/17/21 05/04/21 Michelle Norris MD PCP - General Internal Medicine 05/05/21 09/13/22 Rosetta Diamond MD [address] [place] [address] PCP - General Internal Medicine 09/14/22 documented as of this encounter
--- OUTSIDE RECORDS SUMMARY | 2024-12-18 15:27 | XMS_ITS | Encounter Summary ---
Author Organization [facility] Address [address] [place] [address] Care Team Providers Care Patient Account Analyst Name Role Phone Michelle Norris MD Primary Care Provider Unavail able [facility]cp [facility] Michelle Lagos MD Primary Care Provider Unavail able Rosetta Diamond MD Primary Care Provider + Encounter Details Date Type Department Care Team Description 12/21/2020 Hospital Medical Records [address] [place] [address] Social History Tobacco Use Types Packs/Day Years [...] filedocumented in this encounter Care Teams Patient Account Analyst Relationship Specialty Start Date End Date Michelle Norris MD PCP - General Internal Medicine 03/05/17 03/16/21 [facility], Pcp PCP - General Internal Medicine 03/17/21 05/04/21 Michelle Norris MD PCP - General Internal Medicine 05/05/21 09/13/22 Rosetta Diamond MD [address] [place] [phone] PCP - General Internal Medicine 09/14/22 documented as of this encounter
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
--- OUTSIDE RECORDS SUMMARY | 2024-12-18 15:28 | XMS_ITS | Encounter Summary ---
Author Organization [facility] Address [address] [place] [address] Care Team Providers Care Lapel Stitcher Name Role Phone Nikki Alcantar MD Primary Care Provider [phone] Michelle Norris MD Primary Care Provider Unavail [facility] Primary Care Provider [facility] Michelle Norris MD Primary Care Provider [facility] Rosetta Diamond MD Primary Care Provider + Encounter Details Date Type Department Care Team Description 11/15/2010 Business Doc Medical Records [address] [place] [address]261 Abstract, Provider Social History Tobacco Use Types [...] on filedocumented in this encounter Care Teams Lapel Stitcher Relationship Specialty Start Date End Date Nikki Alcantar MD [address] [place] [address] 46[address] PCP - General 06/26/05 03/04/17 Michelle Norris MD [address] [place] [address] PCP - General Internal Medicine 03/05/17 03/16/21 [facility], Pcp [address] [place] [address] PCP - General Internal Medicine 03/17/21 05/04/21 Michelle Norris MD [address] [place] [address] PCP - General Internal Medicine 05/05/21 09/13/22 Rosetta Diamond MD [address] [place] [address] PCP - General Internal Medicine 09/14/22 documented as of this encounter
--- OUTSIDE RECORDS SUMMARY | 2024-12-18 15:28 | XMS_ITS | Encounter Summary ---
Author Organization [facility] Address [address] [place] [address] Care Team Providers Care Exhaust Emissions Inspector Name Role Phone Nikki Alcantar MD Primary Care Provider [phone] Michelle Norris MD Primary Care Provider Unavail [facility] Primary Care Provider [facility] Michelle Norris MD Primary Care Provider Unavail [facility] Rosetta Diamond MD Primary Care Provider + Encounter Details Date Type Department Care Team Description 07/06/2013 Hospital Medical Records [address] [place] [phone] Stefan Sanford MD Social History Tobacco Use [...] on filedocumented in this encounter Care Teams Exhaust Emissions Inspector Relationship Specialty Start Date End Date Nikki Alcantar MD [address] [place] [address] 65451 PCP - General 06/26/05 03/04/17 Michelle Norris MD [address] [place] [address] 11157 PCP - General Internal Medicine 03/05/17 03/16/21 [facility], Pcp [address] [place] [address] 17882 PCP - General Internal Medicine 03/17/21 05/04/21 Michelle Norris MD [address] [place] [address] 82065 PCP - General Internal Medicine 05/05/21 09/13/22 Rosetta Diamond MD [address] [place] [address] 0[address] PCP - General Internal Medicine 09/14/22 documented as of this encounter
--- OUTSIDE RECORDS SUMMARY | 2024-12-18 15:28 | XMS_ITS | Encounter Summary ---
Author Organization [facility] Address [address] [place] [address] Care Team Providers Care Java J2Ee Application Developer Name Role Phone Nikki Alcantar MD Primary Care Provider [phone] Michelle Norris MD Primary Care Provider Unavail [facility] Primary Care Provider [facility] Michelle Norris MD Primary Care Provider Unavail [facility] Rosetta Diamond MD Primary Care Provider + Encounter Details Date Type Department Care Team Description 07/10/2013 Hospital Medical Records [address] [place] [address] Erik Sanches Social History Tobacco Use Types [...] on filedocumented in this encounter Care Teams Java J2Ee Application Developer Relationship Specialty Start Date End Date Nikki Alcantar MD [address] [place] [address] 67822 PCP - General 06/26/05 03/04/17 Michelle Norris MD [address] [place] [address] 91720 PCP - General Internal Medicine 03/05/17 03/16/21 [facility], Pcp [address] [place] [address] 86043 PCP - General Internal Medicine 03/17/21 05/04/21 Michelle Norris MD [address] [place] [address] 61177 PCP - General Internal Medicine 05/05/21 09/13/22 Rosetta Diamond MD [address] [place] [address] PCP - General Internal Medicine 09/14/22 documented as of this encounter
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
--- OUTSIDE RECORDS SUMMARY | 2024-12-18 15:28 | XMS_ITS | Encounter Summary ---
Author Organization [facility] Address [address] [place] [address] Care Team Providers Care Hydro Sprayer Operator Name Role Phone Nikki Alcantar MD Primary Care Provider [phone] Michelle Norris MD Primary Care Provider Unavail [facility] Primary Care Provider [facility] Michelle Norris MD Primary Care Provider Unavail [facility] Rosetta Diamond MD Primary Care Provider + Encounter Details Date Type Department Care Team Description 12/24/2013 Hospital Medical Records [address] [place] [id number] Marlen Grande Social History Tobacco Use Types [...] on filedocumented in this encounter Care Teams Hydro Sprayer Operator Relationship Specialty Start Date End Date Nikki Alcantar MD [address] [place] [address] 13892 PCP - General 06/26/05 03/04/17 Michelle Norris MD [address] [place] [address] 95781 PCP - General Internal Medicine 03/05/17 03/16/21 [facility], Pcp [address] [place] [address] 82116 PCP - General Internal Medicine 03/17/21 05/04/21 Michelle Norirs MD [address] [place] [address] 70363 PCP - General Internal Medicine 05/05/21 09/13/22 Rosetta Diamond MD [address] [place] [address] PCP - General Internal Medicine 09/14/22 documented as of this encounter
--- OUTSIDE RECORDS SUMMARY | 2024-12-18 15:28 | XMS_ITS | Encounter Summary ---
Author Organization [facility] Address [address] [place] [address] Care Team Providers Care Captain Assistant Name Role Phone Nikki Alcantar MD Primary Care Provider [phone] Michelle Norris MD Primary Care Provider Unavail [facility] Primary Care Provider [facility] Michelle Norris MD Primary Care Provider Unavail [facility] Rosetta Diamond MD Primary Care Provider + Encounter Details Date Type Department Care Team Description 2009 Hospital Medical Records [address] [place] [address] Jose G Santos MD Social History Tobacco Use Types Packs/Day [...] on filedocumented in this encounter Care Teams Captain Assistant Relationship Specialty Start Date End Date Nikki Alcantar MD [address] [place] [address] 29416 PCP - General 06/26/05 03/04/17 Michelle Norris MD [address] [place] [address] 33496 PCP - General Internal Medicine 03/05/17 03/16/21 [facility], Pcp [address] [place] [address] 59581 PCP - General Internal Medicine 03/17/21 05/04/21 Michelle Norris MD [address] [place] [address] 67685 PCP - General Internal Medicine 05/05/21 09/13/22 Rosetta Diamond MD [address] [place] [address] 01020 PCP - General Internal Medicine 09/14/22 documented as of this encounter
--- OUTSIDE RECORDS SUMMARY | 2024-12-18 15:28 | XMS_ITS | Encounter Summary ---
Author Organization [facility] Address [address] [place] [address] Care Team Providers Care Pipe Recovery Specialist Name Role Phone Nikki Alcantar MD Primary Care Provider [phone] Michelle Norris MD Primary Care Provider Unavail [facility] Primary Care Provider [facility] Michelle Norris MD Primary Care Provider Unavail [facility] Rosetta Diamond MD Primary Care Provider + Encounter Details Date Type Department Care Team Description 08/08/2013 Hospital Medical Records [address] [place] [phone] eRena Dominguez Social History Tobacco Use Types Packs/Day [...] on filedocumented in this encounter Care Teams Pipe Recovery Specialist Relationship Specialty Start Date End Date Nikki Alcantar MD [address] [place] [address] 41529 PCP - General 06/26/05 03/04/17 Michelle Norris MD [address] [place] [address] PCP - General Internal Medicine 03/05/17 03/16/21 [facility], Pcp [address] [place] [address] PCP - General Internal Medicine 03/17/21 05/04/21 Michelle Norris MD [address] [place] [address] [place] [address] PCP - General Internal Medicine 05/05/21 09/13/22 Rosetta Diamond MD [address] [place], [place] [phone] PCP - General Internal Medicine 09/14/22 documented as of this encounter
--- OUTSIDE RECORDS SUMMARY | 2024-12-18 15:28 | XMS_ITS | Encounter Summary ---
Author Organization [facility] Address [address] [place] [address] Care Team Providers Care Sap Consultant Name Role Phone Nikki Alcantar MD Primary Care Provider [phone] Michelle Norris MD Primary Care Provider Unavail [facility] Primary Care Provider [facility] Michelle Norris MD Primary Care Provider Unavail [facility] Rosetta Diamond MD Primary Care Provider + Encounter Details Date Type Department Care Team Description 10/30/2009 Hospital Medical Records [address] [place] [address] Reena Dominguez Social History Tobacco Use Types [...] on filedocumented in this encounter Care Teams Sap Consultant Relationship Specialty Start Date End Date Nikki Alcantar MD [address] [place] [address] 26051 PCP - General 06/26/05 03/04/17 Michelle Norris MD [address] [place] [address] PCP - General Internal Medicine 03/05/17 03/16/21 [facility] [address] [place] [address] PCP - General Internal Medicine 03/17/21 05/04/21 Michelle Norris MD [address] [place] [address] [place] [address] PCP - General Internal Medicine 05/05/21 09/13/22 Rosetta Diamond MD [address] [place], [place] [phone] PCP - General Internal Medicine 09/14/22 documented as of this encounter
--- OUTSIDE RECORDS SUMMARY | 2024-12-18 15:28 | XMS_ITS | Encounter Summary ---
Author Organization [facility] Address [address] [place] [address] Care Team Providers Care Veneer Matcher Name Role Phone Nikki Alcantar MD Primary Care Provider [phone] Michelle Nroris MD Primary Care Provider Unavail [facility] Primary Care Provider [facility] Michelle Norris MD Primary Care Provider Unavail [facility] Rosetta Diamond MD Primary Care Provider + Encounter Details Date Type Department Care Team Description 09/30/2010 Hospital Medical Records [address] [place] [address] María Elena Shelly Social History Tobacco Use [...] on filedocumented in this encounter Care Teams Veneer Matcher Relationship Specialty Start Date End Date Nikki Alcantar MD [address] [place] [address] 14137 PCP - General 06/26/05 03/04/17 Michelle Norris MD [address] [place] [address] 21789 PCP - General Internal Medicine 03/05/17 03/16/21 [facility], Pcp [address] [place] [address] PCP - General Internal Medicine 03/17/21 05/04/21 Michelle Norris MD [address] [place], [place] [phone] PCP - General Internal Medicine 05/05/21 09/13/22 Rosetta Diamond MD [address] [place] [address] PCP - General Internal Medicine 09/14/22 documented as of this encounter
--- OUTSIDE RECORDS SUMMARY | 2024-12-18 15:28 | XMS_ITS | Encounter Summary ---
Author Organization [facility] Address [address] [place] [address] Care Team Providers Care Corporate Quality Engineer Name Role Phone Rosetta Diamond MD Primary Care Provider + Reason for Visit * Reason Onset Date Comments Administration Manager Feedback 05/01/2024 Urogynecology Encounter Details Date Type Department Care Team Description 05/01/2024 Telephone OBGYN - [place] [address] [place], [place] [phone] Rebecca Kimbrough CNM [address] [place], [place] [phone] Administration Manager Feedback (Urogynecology) Social History Tobacco Use Types [...] AM EDT Rebecca Good Morning, This is I. You recently referred this patient to see [...] on filedocumented in this encounter Care Teams Corporate Quality Engineer Relationship Specialty Start Date End Date Rosetta Diamond MD [address] [place] [address] PCP - General Internal Medicine 09/14/22 documented as of this encounter
--- OUTSIDE RECORDS SUMMARY | 2024-12-18 15:28 | XMS_ITS | Encounter Summary ---
Author Organization [facility] Address [address] [place] [address] Care Team Providers Care Aquatic Scientist Name Role Phone Nikki Alcantar MD Primary Care Provider [phone] Michelle Norris MD Primary Care Provider Unavail [facility] Primary Care Provider [facility] Michelle Norris MD Primary Care Provider Unavail [facility] Rosetta Diamond MD Primary Care Provider + Encounter Details Date Type Department Care Team Description 01/27/2014 Business Doc Medical Records [address] [place] [phone] Abstract, Provider Social History Tobacco Use Types [...] on filedocumented in this encounter Care Teams Aquatic Scientist Relationship Specialty Start Date End Date Nikki Alcantar MD [address] [place] [address] [phone] PCP - General 06/26/05 03/04/17 Michelle Norris MD [address] [place] [address] PCP - General Internal Medicine 03/05/17 03/16/21 [facility], Pcp [address] [place] [address] PCP - General Internal Medicine 03/17/21 05/04/21 Michelle Norris MD [address] [place], [place] [phone] PCP - General Internal Medicine 05/05/21 09/13/22 Rosetta Diamond MD [address] [place] [address] PCP - General Internal Medicine 09/14/22 documented as of this encounter
--- OUTSIDE RECORDS SUMMARY | 2024-12-18 15:28 | XMS_ITS | Encounter Summary ---
Author Organization [facility] Address [address] [place] [address] Care Team Providers Care Youth Development Specialist Name Role Phone Nikki Alcantar MD Primary Care Provider [phone] Michelle Norris MD Primary Care Provider Unavail [facility] Primary Care Provider [facility] Michelle Norris MD Primary Care Provider Unavail [facility] Rosetta Diamond MD Primary Care Provider + Encounter Details Date Type Department Care Team Description 08/17/2009 Hospital Medical Records [address] [place] [address] Sony Rothman Social History Tobacco Use Types [...] on filedocumented in this encounter Care Teams Youth Development Specialist Relationship Specialty Start Date End Date Nikki Alcantar MD [address] [place] [address] [phone] PCP - General 06/26/05 03/04/17 Michelle Norris MD [address] [place] [address] PCP - General Internal Medicine 03/05/17 03/16/21 [facility], Pcp [address] [place] [address] PCP - General Internal Medicine 03/17/21 05/04/21 Michelle Norris MD [address] [place] [address] [place] [address] PCP - General Internal Medicine 05/05/21 09/13/22 Rosetta Diamond MD [address] [place], [place] [phone] PCP - General Internal Medicine 09/14/22 documented as of this encounter
--- OUTSIDE RECORDS SUMMARY | 2024-12-18 15:28 | XMS_ITS | Encounter Summary ---
Author Organization [facility] Address [address] [place] [address] Care Team Providers Care Distilling Department Supervisor Name Role Phone Michelle Norris MD Primary Care Provider Unavail [facility], Pcp [facility] MD Primary Care Provider Unavail able Rosetta Diamond MD Primary Care Provider + Encounter Details Date Type Department Care Team Description 07/20/2017 Business Doc Medical Records [address] [place] [id number] Abstract, Provider Social History Tobacco Use Types [...] on filedocumented in this encounter Care Teams Distilling Department Supervisor Relationship Specialty Start Date End Date Michelle Norris MD PCP - General Internal Medicine 03/05/17 03/16/21 [facility], Pcp PCP - General Internal Medicine 03/17/21 05/04/21 Michelle Norris MD PCP - General Internal Medicine 05/05/21 09/13/22 Rosetta Diamond MD [address] [place] [phone] PCP - General Internal Medicine 09/14/22 documented as of this encounter
--- OUTSIDE RECORDS SUMMARY | 2024-12-18 15:28 | XMS_ITS | Encounter Summary ---
Author Organization [facility] Address [address] [place] [address] Care Team Providers Care Collection Clerk Name Role Phone Nikki Alcantar MD Primary Care Provider [phone] Michelle Norris MD Primary Care Provider Unavail [facility] Primary Care Provider [facility] Michelle Norris MD Primary Care Provider Unavail [facility] Rosetta Diamond MD Primary Care Provider + Encounter Details Date Type Department Care Team Description 10/30/2009 Hospital Medical Records [address] [place] [id number] Jose Echols MD Social History Tobacco Use [...] on filedocumented in this encounter Care Teams Collection Clerk Relationship Specialty Start Date End Date Nikki Alcantar MD [address] [place] [phone] PCP - General 06/26/05 03/04/17 Michelle Norris MD [address] [place] [address] [phone] PCP - General Internal Medicine 03/05/17 03/16/21 [facility], Pcp [address] [place] [address] [phone] PCP - General Internal Medicine 03/17/21 05/04/21 Michelle Norris MD [address] [place] [address] 39[address] PCP - General Internal Medicine 05/05/21 09/13/22 Rosetta Diamond MD [address] [place] [phone] PCP - General Internal Medicine 09/14/22 documented as of this encounter
--- OUTSIDE RECORDS SUMMARY | 2024-12-18 15:28 | XMS_ITS | Encounter Summary ---
Author Organization [facility] Address [address] [place] [address] Care Team Providers Care Glass Etcher Helper Name Role Phone Nikki Alcantar MD Primary Care Provider [phone] Michelle Norris MD Primary Care Provider Unavail [facility] Primary Care Provider [facility] Michelle Norris MD Primary Care Provider Unavail [facility] Rosetta Diamond MD Primary Care Provider + Encounter Details Date Type Department Care Team Description 09/30/2010 Hospital Medical Records [address] [place] [phone] Rolando Ku Social History Tobacco Use Types [...] on filedocumented in this encounter Care Teams Glass Etcher Helper Relationship Specialty Start Date End Date Nikki Alcantar MD [address] [place] [phone] PCP - General 06/26/05 03/04/17 Michelle Norris MD [address] [place] [address] PCP - General Internal Medicine 03/05/17 03/16/21 [facility], Pcp [address] [place] [address] PCP - General Internal Medicine 03/17/21 05/04/21 Michelle Norris MD [address] [place] [address] [place] [address] PCP - General Internal Medicine 05/05/21 09/13/22 Rosetta Diamond MD [address], [place] [phone] PCP - General Internal Medicine 09/14/22 documented as of this encounter
--- OUTSIDE RECORDS SUMMARY | 2024-12-18 15:28 | XMS_ITS | Encounter Summary ---
Author Organization [facility] Address [address] [place] [address] Care Team Providers Care Complementary Health Therapists Name Role Phone Michelle Norris MD Primary Care Provider [facility], Pcp [facility] MD Primary Care Provider Unavail able Rosetta Diamond MD Primary Care Provider + Encounter Details Date Type Department Care Team Description 08/03/2017 Natural Resources Professor Report Medical Records [address] [place] [address] [id number] Abstract, Provider Social History Tobacco Use Types [...] on filedocumented in this encounter Care Teams Complementary Health Therapists Relationship Specialty Start Date End Date Michelle Norris MD PCP - General Internal Medicine 03/05/17 03/16/21 [facility], Pcp PCP - General Internal Medicine 03/17/21 05/04/21 Michelle Norris MD PCP - General Internal Medicine 05/05/21 09/13/22 Rosetta Diamond MD [address] [place] [phone] PCP - General Internal Medicine 09/14/22 documented as of this encounter
--- OUTSIDE RECORDS SUMMARY | 2024-12-18 15:28 | XMS_ITS | Encounter Summary ---
Author Organization [facility] Address [address] [place] [address] Care Team Providers Care Real Estate Loan Officer Name Role Phone Nikki Alcantar MD Primary Care Provider [phone] Michelle Norris MD Primary Care Provider Unavail [facility] Primary Care Provider [facility] Michelle Norris MD Primary Care Provider Unavail [facility] Rosetta Diamond MD Primary Care Provider + Encounter Details Date Type Department Care Team Description 08/28/2013 General Supervisor Report Medical Records [address] [place] [id number] Julio Paredes MD Social History Tobacco Use [...] in this encounter Care Teams Real Estate Loan Officer Relationship Specialty Start Date End Date Nikki Alcantar MD [address] [place] [address] [phone] PCP - General 06/26/05 03/04/17 Michelle Norris MD [address] [place] [address] PCP - General Internal Medicine 03/05/17 03/16/21 [facility], Pcp [address] [place] [address] [phone] PCP - General Internal Medicine 03/17/21 05/04/21 Michelle Norris MD [address] [place] [address] [place] [address] PCP - General Internal Medicine 05/05/21 09/13/22 Rosetta Diamond MD [address] [place], [place] [phone] PCP - General Internal Medicine 09/14/22 documented as of this encounter
--- OUTSIDE RECORDS SUMMARY | 2024-12-18 15:28 | XMS_ITS | Encounter Summary ---
Author Organization [facility] Address [address] [place] [address] Care Team Providers Care Hand I Tube Bender Name Role Phone Nikki Alcantar MD Primary Care Provider [phone] Michelle Norris MD Primary Care Provider Unavail [facility] Primary Care Provider [facility] Michelle Norris MD Primary Care Provider Unavail able Rosetta Diamond MD Primary Care Provider + Reason for Visit * Reason Onset Date Comments Faxed Order 04/26/2016 Encounter Details Date Type Department Care Team Description 04/26/2016 Telephone Adult Medicine [facility] [address] [place] [address] [phone] Nikki Alcantar MD [address] [place] [address] [phone] Faxed Order Social History Tobacco Use Types [...] on filedocumented in this encounter Care Teams Hand I Tube Bender Relationship Specialty Start Date End Date Nikki Alcantar MD [address] [place] [address] PCP - General 06/26/05 03/04/17 Michelle Norris MD [address] [place] [phone] PCP - General Internal Medicine 03/05/17 03/16/21 [place] [address] PCP - General Internal Medicine 03/17/21 05/04/21 Michelle Norris MD [address] [place] [phone] PCP - General Internal Medicine 05/05/21 09/13/22 Rosetta Diamond MD [address] [place] [address] PCP - General Internal Medicine 09/14/22 documented as of this encounter
--- OUTSIDE RECORDS SUMMARY | 2024-12-18 15:28 | XMS_ITS | Clinical Summary ---
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 1.003 - 1.030 LAB URINALYSIS - AUTOMATED METHOD 11/26/2024 5:25 AM [facility] pH, Urine 5.5 5.0 - 8.0 pH LAB URINALYSIS - AUTOMATED METHOD 11/26/2024 5:25 AM [facility] Leukocytes, Urine Negative Negative LAB URINALYSIS - AUTOMATED METHOD 11/26/2024 5:25 AM [facility] Nitrite, Urine Negative Negative LAB URINALYSIS - AUTOMATED METHOD 11/26/2024 5:25 AM [facility] Protein, Urine Negative <=Trace mg/dL LAB URINALYSIS - AUTOMATED METHOD 11/26/2024 5:25 AM [facility] Glucose, Urine Negative Negative mg/dL LAB URINALYSIS - AUTOMATED METHOD 11/26/2024 5:25 AM [facility] Ketones, Urine Negative Negative mg/dL LAB URINALYSIS - AUTOMATED METHOD 11/26/2024 5:25 AM [facility] Urobilinogen, Urine 0.2 0.2 - 1.0 mg/dL LAB URINALYSIS - AUTOMATED METHOD 11/26/2024 5:25 AM [facility] Bilirubin, Urine Negative Negative LAB URINALYSIS - AUTOMATED METHOD 11/26/2024 5:25 AM [facility] Blood, Urine Negative Negative LAB URINALYSIS - AUTOMATED METHOD 11/26/2024 5:25 AM [facility] Urine Urine specimen obtained by clean catch procedure / Unknown Non-blood Collection / Unknown 11/26/2024 5:10 AM EST 11/26/2024 5:17 AM EST us Alberto Massey MD LAB URINE ORDERABLES Final Resu lt Performing Organization Address [facility] Co de Phone Number [facility] [address] [place] [address], [place] [phone] * [place] urine culture tube (11/26/2024 5:10 AM EST) [facility] Extra Tube Hold for add-ons. 11/26/2024 7:01 AM EST [facility] Comment:Auto resulted. Urine Urine specimen obtained by clean catch procedure / Unknown Non-blood Collection / Unknown 11/26/2024 5:10 AM EST 11/26/2024 5:17 AM EST us Alberto Massey MD LAB URINE ORDERABLES Final Resu lt Performing Organization Address [facility] Co de Phone Number [facility] [address] [place] [address], [place] [phone] * (ABNORMAL) POCT Glucose, blood (11/25/2024 9:40 PM EST) [facility] Glucose POCT 232(H) 70 - 100 mg/dL 11/25/2024 9:41 PM EST [facility] Blood Capillary blood specimen / Unknown 11/25/2024 9:40 PM EST 11/25/2024 9:42 PM EST us Jimmy Alfonso MD LAB POINT OF CARE TE ST DOCKED DEVICE UNSOLICITED RESULTS Final Result Performing Organization Address City/[facility]/ZIP Co de Phone Number [facility] [address] [place] [address], [place] [phone] * Respiratory virus panel molecular study (11/25/2024 8:24 PM EST) [facility] Adenovirus Detection by PCR Not Detected Not Detected LAB MICROBIOLOGY METHOD 11/25/2024 9:55 PM [facility] Influenza A PCR Not Detected Not Detected LAB MICROBIOLOGY METHOD 11/25/2024 9:55 PM EST [facility] Influenza B PCR Not Detected Not Detected LAB MICROBIOLOGY METHOD 11/25/2024 9:55 PM [facility] Coronavirus 229E Not Detected Not Detected LAB MICROBIOLOGY METHOD 11/25/2024 9:55 PM [facility] Coronavirus HKU1 Not Detected Not Detected LAB MICROBIOLOGY METHOD 11/25/2024 9:55 PM [facility] Coronavirus OC43 Not Detected Not Detected LAB MICROBIOLOGY METHOD 11/25/2024 9:55 PM [facility] Coronavirus NL63 Not Detected Not Detected LAB MICROBIOLOGY METHOD 11/25/2024 9:55 PM [facility] Parainfluenza Virus 1 Not Detected Not Detected LAB MICROBIOLOGY METHOD 11/25/2024 9:55 PM [facility] Parainfluenza Virus 2 Not Detected Not Detected LAB MICROBIOLOGY METHOD 11/25/2024 9:55 PM [facility] Parainfluenza Virus 3 Not Detected Not Detected LAB MICROBIOLOGY METHOD 11/25/2024 9:55 PM [facility] Parainfluenza Virus 4 Not Detected Not Detected LAB MICROBIOLOGY METHOD 11/25/2024 9:55 PM [facility] RSV PCR Not Detected Not Detected LAB MICROBIOLOGY METHOD 11/25/2024 9:55 PM [facility] Human Metapneumovirus A and B Not Detected Not Detected LAB MICROBIOLOGY METHOD 11/25/2024 9:55 PM [facility] Rhinovirus/Entero virus Not Detected Not Detected LAB MICROBIOLOGY METHOD 11/25/2024 9:55 PM [facility] Bordetella pertussis Not Detected Not Detected LAB MICROBIOLOGY METHOD 11/25/2024 9:55 PM [facility] Bordetella parapertussis Not Detected Not Detected LAB MICROBIOLOGY METHOD 11/25/2024 9:55 PM EST [facility] Mycoplasma pneumo by PCR Not Detected Not Detected LAB MICROBIOLOGY METHOD 11/25/2024 9:55 PM EST [facility] Chlamydia pneumoniae Not Detected Not Detected LAB MICROBIOLOGY METHOD 11/25/2024 9:55 PM EST [facility] SARS COV-2 Not Detected Not Detected LAB MICROBIOLOGY METHOD 11/25/2024 9:55 PM EST [facility] Sputum Both anterior nares / Unknown Non-blood Collection / Unknown 11/25/2024 8:24 PM EST 11/25/2024 8:52 PM EST Narrative [facility] - 11/25/2024 9:55 PM EST Testing was performed using the [employer] Respiratory Pathogen PCR Assay. All results must [...] us Jimmy Alfonso MD LAB MICROBIOLOGY - [facility] Final Result [facility] [address] [place] [address], * [place] top urine tube (11/02/2024 9:06 PM EST) Only the most recent of2 resultswithin the time period is included. Extra Tube Hold for add-ons. 11/03/2024 12:01 AM EST [facility] Comment:Auto resulted. Urine Urine specimen obtained by clean catch procedure / Unknown 11/02/2024 9:06 PM EST 11/02/2024 10:06 PM EST us Jimmy Alfonso MD LAB URINE ORDERABLES Final Resu lt [facility] [address] [place] [address], * XR Thoracic Spine 2 Views (10/20/2024 2:33 AM EST) Anatomical Region Laterality Modality Spine, T-spine Radiographic Renata ging 10/20/2024 8:50 AM EST Impressions 10/20/2024 8:52 AM EST The thoracic spine is moderately kyphotic as also seen on 09/07/2024. Otherwise, normal examination, without acute findings. Code 57907 -------- FINAL REPORT -------- Dictated By: Jefe Agrawal Dictated Date: 10/20/2024 08:50 ET Assigned Physician: Jefe Agrawal Reviewed and Electronically Signed By: Jefe Agrawal Signed Date: 10/20/2024 08:52 ET Workstation ID: [id number] Transcribed By: Self Edit Transcribed Date: 10/20/2024 [...] as also seen on the chest radiograph kvolktbdv50/24/2024. The alignment of the bony structures is otherwise anatomic. Nofracture or osteolytic or osteoblastic lesion is seen. The disc spaces arewell-maintained. IMPRESSION: The thoracic spine is moderately kyphotic as also seen on 09/07/2024.Otherwise, normal examination, without acute findings. Code 54364 -------- FINAL REPORT -------- Dictated By: Jefe Agrawal Dictated Date: 10/20/2024 08:50 ET Assigned Physician: Jefe Agrawal Reviewed and Electronically Signed By: Jefe Agrawal Signed Date: 10/20/2024 08:52 ET Workstation ID: [id number] Transcribed By: Self Edit Transcribed Date: 10/20/2024 08:50 ET us Alberto Massey MD IMG XR PROCEDURES Final Result * XR Lumbar Spine 2-3 Views (10/20/2024 2:32 AM EST) Anatomical Region Laterality Modality Spine, L-spine Radiographic Renata ging 10/20/2024 8:16 AM EST Impressions 10/20/2024 8:18 AM EST Impression: No evidence of lumbar spine fracture or subluxation. Telerad PA ([id number]) -------- FINAL REPORT -------- Dictated By: Eloina Mayo Dictated Date: 10/20/2024 08:16 ET Assigned Physician: Eloina Mayo Reviewed and Electronically Signed By: Eloina Mayo Signed Date: 10/20/2024 08:18 ET Workstation ID: [id number] Transcribed By: Self Edit Transcribed Date: 10/20/2024 [...] of lumbar spine fracture or subluxation. Telerad TIMI ([id number]) -------- FINAL REPORT -------- Dictated By: Eloina Mayo Dictated Date: 10/20/2024 08:16 ET Assigned Physician: Eloina Mayo Reviewed and Electronically Signed By: Eloina Mayo Signed Date: 10/20/2024 08:18 ET Workstation ID: [id number] Transcribed By: Self Edit Transcribed Date: 10/20/2024 [...] urine manually resulted (10/18/2024 10:34 PM EST) HCG, Ur POC Negative Negative POC hCG Int QC Pass? Yes Yes Urine Urine specimen obtained by clean catch procedure / Unknown 10/18/2024 10:34 PM EST Pedro Arellano DO POINT OF CARE TEST ENTER/EDIT O RDERABLES Final Result * Pap smear (04/22/2024) 04/22/2024 Narrative HISTORICAL TESTING LAB RESULTING AGENCY - 04/28/2024 11:46 AM EDT [id number] THINPREP PAP, IMAGED: NEGATIVE FOR SQUAMOUS INTRAEPITHELIAL LESION AND MALIGNANCY MARIA ANTONIA SALINAS CT(ASCP) (CASE ELECTRONICALLY SIGNED 04 28 2024) RESULT OF APTIMA HIGH RISK HPV ASSAY: HIGH RISK HPV: ??NEGATIVE (SEROTYPES 16,18,31,33,35,39,45,51,52,56,58,59,66,68) COMPLETED ON 2024-04-24 ADEQUACY: SATISFACTORY ENDOCERVICAL/TRANSFORMATION ZONE COMPONENT PRESENT. SOURCE: THINPREP PAP HPV ANY DX: ??REFLEX 16 AND 18, CERVICAL, IMAGED CLINICAL INFORMATION: HPV ANY DIAGNOSIS. PAP HX NEGATIVE, [Z01.419] Rebecca Kimbrough CNM LAB CYTOLOGY ORDERABLES Final Result HISTORICAL TESTING [...] Documents on File Type Date Recorded Patient Cardroom Hand Expl anation Health Care Decision (hx) 07/03/2023 [...] (hx) 07/03/2023 AD MARTINEZ DIRECTIVE Care Teams Rod Bending Machine Operator Relationship Specialty Start Date End Date Maribel Marquez [address] [place] [id number] PCP - General 09/08/24
--- OUTSIDE RECORDS SUMMARY | 2024-12-18 15:28 | XMS_ITS | Encounter Summary ---
Author Organization [facility] Address [address] [place] [address] Care Team Providers Care Cow Rider Name Role Phone Michelle Norris MD Primary Care Provider Unavail able [facility], Pcp [facility] Michelle Norris MD Primary Care Provider Unavail able Rosetta Diamond MD Primary Care Provider + Encounter Details Date Type Department Care Team Description 11/19/2017 Hospital Medical Records [address] [place] [id number] Carlos Landrum Social History Tobacco Use Types [...] on filedocumented in this encounter Care Teams Cow Rider Relationship Specialty Start Date End Date Michelle Norris MD PCP - General Internal Medicine 03/05/17 03/16/21 [facility], Pcp PCP - General Internal Medicine 03/17/21 05/04/21 Michelle Norris MD PCP - General Internal Medicine 05/05/21 09/13/22 Rosetta Diamond MD [address] [place] [address] PCP - General Internal Medicine 09/14/22 documented as of this encounter
--- OUTSIDE RECORDS SUMMARY | 2024-12-18 15:28 | XMS_ITS | Encounter Summary ---
Author Organization [facility] Address [address] [place] [address] Care Team Providers Care Rcp Name Role Phone Michelle Norris MD Primary Care Provider Unavail able [facility], Pcp Primary Care Provider Michelle Abdi MD Primary Care Provider Unavail able Rosetta Diamond MD Primary Care Provider + Reason for Visit * Reason Onset Date Comments Faxed Order 11/05/2017 Encounter Details Date Type Department Care Team Description 11/05/2017 Telephone Adult [address] [address] Michelle Norris MD Faxed Order Social History [...] on filedocumented in this encounter Care Teams Rcp Relationship Specialty Start Date End Date Michelle Norris MD PCP - General Internal Medicine 03/05/17 03/16/21 [facility], Pcp PCP - General Internal Medicine 03/17/21 05/04/21 Michelle Norris MD PCP - General Internal Medicine 05/05/21 09/13/22 Rosetta Diamond MD [address] [place] [id number] PCP - General Internal Medicine 09/14/22 documented as of this encounter
--- OUTSIDE RECORDS SUMMARY | 2024-12-18 15:28 | XMS_ITS | Encounter Summary ---
Author Organization [facility] Address [address] [place] [address] Care Team Providers Care Blood Collector Name Role Phone Nikki Alcantar MD Primary Care Provider [phone] Michelle Norris MD Primary Care Provider Unavail [facility] Primary Care Provider [facility] Michelle Norris MD Primary Care Provider Unavail [facility] Rosetta Diamond MD Primary Care Provider + Encounter Details Date Type Department Care Team Description 07/10/2011 Hospital Medical Records [address] [place] [id number] Julio Gilmore Social History Tobacco Use Types [...] on filedocumented in this encounter Care Teams Blood Collector Relationship Specialty Start Date End Date Nikki Alcantar MD [address] [place] [address] PCP - General 06/26/05 03/04/17 Mcihelle Norris MD [address] [place] [address] PCP - General Internal Medicine 03/05/17 03/16/21 [facility], Pcp [address] [place] [address] PCP - General Internal Medicine 03/17/21 05/04/21 Michelle Norris MD [address] [place] [address] PCP - General Internal Medicine 05/05/21 09/13/22 Rosetta Diamond MD [address] [place] [address] PCP - General Internal Medicine 09/14/22 documented as of this encounter
--- OUTSIDE RECORDS SUMMARY | 2024-12-18 15:28 | XMS_ITS | Encounter Summary ---
Author Organization [facility] Address [address] [place] [address] Care Team Providers Care Marketing Assistant Retail Division Name Role Phone Nikki Alcantar MD Primary Care Provider [phone] Michelle Norris MD Primary Care Provider Unavail [facility] Primary Care Provider [facility] Michelle Norris MD Primary Care Provider Unavail [facility] Rosetta Diamond MD Primary Care Provider + Encounter Details Date Type Department Care Team Description 05/11/2010 Hospital Medical Records [address] [place] [id number] Gulshan Alanis MD Social History Tobacco Use Types Packs/Day [...] on filedocumented in this encounter Care Teams Marketing Assistant Retail Division Relationship Specialty Start Date End Date Nikki Alcantar MD [address] [place] [address] PCP - General 06/26/05 03/04/17 Michelle Norris MD [address] [place] [address] PCP - General Internal Medicine 03/05/17 03/16/21 [facility], Pcp [address] [place] [address] PCP - General Internal Medicine 03/17/21 05/04/21 Michelle Norris MD [address] [place] [address] PCP - General Internal Medicine 05/05/21 09/13/22 Rosetta Diamond MD [address] [place] [address] PCP - General Internal Medicine 09/14/22 documented as of this encounter
--- OUTSIDE RECORDS SUMMARY | 2024-12-18 15:28 | XMS_ITS | Encounter Summary ---
Author Organization [facility] Address [address] [place] [address] Care Team Providers Care Flumer Name Role Phone Michelle Norris MD Primary Care Provider Unavail able [facility] Michelle Lagos MD Primary Care Provider Unavail able Rosetta Diamond MD Primary Care Provider + Reason for Visit * Reason Onset Date Comments er follow up 07/24/2019 pt seen at [facility] for SI and depression Encounter Details Date Type Department Care Team Description 07/24/2019 Telephone Adult Medicine [address] [address] Michelle Norris MD er follow up ([facility] for SI and depression) Social [...] 9:40 AM EDT Pt seen at the [facility] ED for SI and depression. Was cleared by N for discharge. documented in this encounter Plan of Treatment Not on file documented as of this encounter Visit Diagnoses Not on filedocumented in this encounter Care Teams Flumer Relationship Specialty Start Date End Date Michelle Norris MD PCP - General Internal Medicine 03/05/17 03/16/21 [facility], Pcp PCP - General Internal Medicine 03/17/21 05/04/21 Michelle Norris MD PCP - General Internal Medicine 05/05/21 09/13/22 Rosetta Diamond MD [address] [place] [address] PCP - General Internal Medicine 09/14/22 documented as of this encounter
--- OUTSIDE RECORDS SUMMARY | 2024-12-18 15:28 | XMS_ITS | Encounter Summary ---
Author Organization [facility] Address [address] [place] [address] Care Team Providers Care Release Of Information Clerk Name Role Phone Nikki Alcantar MD Primary Care Provider [phone] Michelle Norris MD Primary Care Provider Unavail [facility] Primary Care Provider [facility] Michelle Norris MD Primary Care Provider Unavail [facility] Rosetta Diamond MD Primary Care Provider + Encounter Details Date Type Department Care Team Description 09/01/2010 Hospital Medical Records [address] [place] [id number] Abstract, Provider Social History Tobacco Use Types [...] on filedocumented in this encounter Care Teams Release Of Information Clerk Relationship Specialty Start Date End Date Nikki Alcantar MD [address] [place] [address] PCP - General 06/26/05 03/04/17 Michelle Norris MD [address] [place] [address] PCP - General Internal Medicine 03/05/17 03/16/21 [facility], Pcp [address] [place] [address] PCP - General Internal Medicine 03/17/21 05/04/21 Michelle Norris MD [address] [place] [address] PCP - General Internal Medicine 05/05/21 09/13/22 Rosetta Diamond MD [address] [place], [place] [phone] PCP - General Internal Medicine 09/14/22 documented as of this encounter
--- OUTSIDE RECORDS SUMMARY | 2024-12-18 15:28 | XMS_ITS | Encounter Summary ---
Author Organization [facility] Address [address] [place] [address] Care Team Providers Care Tablet Tester Name Role Phone Nikki Alcantar MD Primary Care Provider [phone] Michelle Norris MD Primary Care Provider Unavail [facility] Primary Care Provider [facility] Michelle Norris MD Primary Care Provider [facility]ail [facility] Rosetta Diamond MD Primary Care Provider + Encounter Details Date Type Department Care Team Description 08/19/2009 Hospital Medical Records [address] [place] [id number] Sumeet Yadav Social History Tobacco Use Types [...] on filedocumented in this encounter Care Teams Tablet Tester Relationship Specialty Start Date End Date Nikki Alcantar MD [address] [place] [address] PCP - General 06/26/05 03/04/17 Michelle Norris MD [address] [place] [address] PCP - General Internal Medicine 03/05/17 03/16/21 [facility], Pcp [address] [place] [address] PCP - General Internal Medicine 03/17/21 05/04/21 Michelle Norris MD [address] [place] [address] [place] [address] PCP - General Internal Medicine 05/05/21 09/13/22 Rosetta Diamond MD [address] [place], [place] [phone] PCP - General Internal Medicine 09/14/22 documented as of this encounter
--- OUTSIDE RECORDS SUMMARY | 2024-12-18 15:28 | XMS_ITS | Encounter Summary ---
Author Organization [facility] Address [address] [place] [address] Care Team Providers Care Customer Agent Name Role Phone Nikki Alcantar MD Primary Care Provider [phone] Michelle Norris MD Primary Care Provider Unavail able [facility] Primary Care Provider [facility] Michelle Norris MD Primary Care Provider Unavail [facility] Rosetta Diamond MD Primary Care Provider + Encounter Details Date Type Department Care Team Description 01/28/2014 [facility] Medical Records [address] [place] [id number] Abstract, Provider Social History Tobacco Use Types [...] on filedocumented in this encounter Care Teams Customer Agent Relationship Specialty Start Date End Date Nikki Alcantar MD [address] [place] [address] PCP - General 06/26/05 03/04/17 Michelle Norris MD [address] [place] [address] PCP - General Internal Medicine 03/05/17 03/16/21 [facility], Pcp [address] [place] [address] PCP - General Internal Medicine 03/17/21 05/04/21 Michelle Norris MD [address] [place] [address] PCP - General Internal Medicine 05/05/21 09/13/22 Rosetat Diamond MD [address] [place], [place] [phone] PCP - General Internal Medicine 09/14/22 documented as of this encounter
--- OUTSIDE RECORDS SUMMARY | 2024-12-18 15:28 | XMS_ITS | Encounter Summary ---
Author Organization [facility] Address [address] [place] [address] Care Team Providers Care Cheese Processor Name Role Phone Nikki Alcantar MD Primary Care Provider [phone] Michelle Norris MD Primary Care Provider Unavail [facility] Primary Care Provider [facility] Michelle Norris MD Primary Care Provider Unavail [facility] Rosetta Diamond MD Primary Care Provider + Encounter Details Date Type Department Care Team Description 10/07/2010 Hospital Medical Records [address] [place] [address] Alverto Hernandez Social History Tobacco Use Types [...] on filedocumented in this encounter Care Teams Cheese Processor Relationship Specialty Start Date End Date Nikki Alcantar MD [address] [place] [address] 68636 PCP - General 06/26/05 03/04/17 Michelle Norris MD [address] [place] [address] 96914 PCP - General Internal Medicine 03/05/17 03/16/21 [facility], Pcp [address] [place] [address] 39517 PCP - General Internal Medicine 03/17/21 05/04/21 Michelle Norris MD [address] [place] [address] 42113 PCP - General Internal Medicine 05/05/21 09/13/22 Rosetta Diamond MD [address] [place] [address] 01020 PCP - General Internal Medicine 09/14/22 documented as of this encounter
--- OUTSIDE RECORDS SUMMARY | 2024-12-18 15:28 | XMS_ITS | Encounter Summary ---
Author Organization [facility] Address [address] [place] [address] Care Team Providers Care Private Branch Exchange Service Adviser Name Role Phone Rosetta Diamond MD Primary Care Provider + Reason for Visit * Reason Onset Date Comments hospital follow up 10/12/2022 Encounter Details Date Type Department Care Team Description 10/12/2022 Telephone Adult Medicine [facility] [address] [place] [address] [phone] Rosetta Diamond MD [address] [place] [address] [phone] hospital follow up Social History Tobacco Use [...] on filedocumented in this encounter Care Teams Private Branch Exchange Service Adviser Relationship Specialty Start Date End Date Rosetta Diamond MD [address] [place] [address] PCP - General Internal Medicine 09/14/22 documented as of this encounter
--- OUTSIDE RECORDS SUMMARY | 2024-12-18 15:29 | XMS_ITS | Encounter Summary ---
Author Organization [facility] Address [address] [place] [address] Care Team Providers Care Electronics Utility Worker Name Role Phone Katherine Norris MD Primary Care Provider Unavail able [facility] Primary Care Provider [facility] Katherine Lagos MD Primary Care Provider Unavail able Rosetta Diamond MD Primary Care Provider + Reason for Visit * Reason Onset Date Comments Call From Hospital 10/14/2019 Encounter Details Date Type Department Care Team Description 10/14/2019 Telephone Adult Medicine [address] [address] Katherine Norris MD Call From Hospital Social History [...] encounter Miscellaneous Notes * Telephone Encounter - Cherelle Tadeo - 10/14/2019 12:53 PM EST Aurea from [facility] is calling as FYI to KATHERINE NORRIS patient has been admitted to hospital since 10/08/19. She states if any questions feel free to call her at [phone] documented in this encounter Plan of Treatment Not on file documented as of this encounter Visit Diagnoses Not on filedocumented in this encounter Care Teams Electronics Utility Worker Relationship Specialty Start Date End Date Katherine Norris MD PCP - General Internal Medicine 03/05/17 03/16/21 [facility], Pcp PCP - General Internal Medicine 03/17/21 05/04/21 Katherine Norris MD PCP - General Internal Medicine 05/05/21 09/13/22 Rosetta Diamond MD [address] [place] [address] PCP - General Internal Medicine 09/14/22 documented as of this encounter
--- OUTSIDE RECORDS SUMMARY | 2024-12-18 15:29 | XMS_ITS | Encounter Summary ---
Author Organization [facility] Address [address] [place] [address] Care Team Providers Care Accounts Payable Professional Name Role Phone Michelle Norris MD Primary Care Provider Unavail able [facility], Pcp [facility] Michelle Lagos MD Primary Care Provider Unavail able Rosetta Diamond MD Primary Care Provider + Reason for Visit * Reason Onset Date Comments Faxed Order 11/12/2019 Encounter Details Date Type Department Care Team Description 11/12/2019 Telephone Adult [address] [address] Michelle Norris MD Faxed Order Social History [...] 10:37 AM EST Faxed orders received from [facility], please sign and fax back to [phone]. documented in this encounter Plan of Treatment Not on file documented as of this encounter Visit Diagnoses Not on filedocumented in this encounter Care Teams Accounts Payable Professional Relationship Specialty Start Date End Date Michelle Norris MD PCP - General Internal Medicine 03/05/17 03/16/21 [facility], Pcp PCP - General Internal Medicine 03/17/21 05/04/21 Michelle Norris MD PCP - General Internal Medicine 05/05/21 09/13/22 Rosetta Diamond MD [address] [place] [address] PCP - General Internal Medicine 09/14/22 documented as of this encounter
--- OUTSIDE RECORDS SUMMARY | 2024-12-18 15:29 | XMS_ITS | Encounter Summary ---
Author Organization [facility] Address [address] [place] [address] Care Team Providers Care High Raw Sugar Boiler Name Role Phone Nikki Alcantar MD Primary Care Provider [phone] Michelle Norris MD Primary Care Provider Unavail [facility] Primary Care Provider [facility] Michelle Norris MD Primary Care Provider Unavail [facility] Rosetta Diamond MD Primary Care Provider + Encounter Details Date Type Department Care Team Description 12/21/2012 Hospital Medical Records [address] [place] [address] Trinidadian, Kathy, DO Social History Tobacco Use Types Packs/Day Years [...] on filedocumented in this encounter Care Teams High Raw Sugar Boiler Relationship Specialty Start Date End Date Nikki Alcantar MD [address] [place] [address] PCP - General 06/26/05 03/04/17 Michelle Norris MD [address] [place] [address] 56969 PCP - General Internal Medicine 03/05/17 03/16/21 [facility], Pcp [address] [place] [address] 64513 PCP - General Internal Medicine 03/17/21 05/04/21 Michelle Norris MD [address] [place] [address] 52312 PCP - General Internal Medicine 05/05/21 09/13/22 Rosetta Diamond MD [address] [place] [address] PCP - General Internal Medicine 09/14/22 documented as of this encounter
--- OUTSIDE RECORDS SUMMARY | 2024-12-18 15:29 | XMS_ITS | Encounter Summary ---
Author Organization [facility] Address [address] [place] [address] Care Team Providers Care Hospitality Manager Name Role Phone Nikki Alcantar MD Primary Care Provider [phone] Michelle Nroris MD Primary Care Provider Unavail able [facility] Primary Care Provider [facility] Michelle Norris MD Primary Care Provider Unavail able Rosetta Diamond MD Primary Care Provider + Reason for Visit * Reason Onset Date Comments Faxed Order 09/05/2016 Encounter Details Date Type Department Care Team Description 09/05/2016 Telephone Adult Medicine [address] [phone] Nikki Alcantar MD [address] [place] [address] [phone] Faxed Order Social History Tobacco Use Types [...] Telephone Encounter - Donavon Harvey - 09/11/2016 1:31 PM EST Juan returning call for wound care orders [phone] * Telephone Encounter - Isaac Harvey - 09/05/2016 2:25 PM EST Medical resources faxed supplimental orders for signature documented in this encounter Plan of Treatment Not on file documented as of this encounter Visit Diagnoses Not on filedocumented in this encounter Care Teams Hospitality Manager Relationship Specialty Start Date End Date Nikki Alcantar MD [address] [place] [address] PCP - General 06/26/05 03/04/17 Michelle Norris MD [address] [place] [address] PCP - General Internal Medicine 03/05/17 03/16/21 [place] [address] PCP - General Internal Medicine 03/17/21 05/04/21 Michelle Norris MD [address] [place], [place] [phone] PCP - General Internal Medicine 05/05/21 09/13/22 Rosetta Diamond MD [address] [place] [address] PCP - General Internal Medicine 09/14/22 documented as of this encounter
--- OUTSIDE RECORDS SUMMARY | 2024-12-18 15:29 | XMS_ITS | Encounter Summary ---
Author Organization [facility] Address [address] [place] [address] Care Team Providers Care Memory Care Director Name Role Phone Michelle Norris MD Primary Care Provider Unavail [facility]cp [facility] Michelle [facility] MD Primary Care Provider Unavail able Rosetta Diamond MD Primary Care Provider + Encounter Details Date Type Department Care Team Description 08/09/2019 Old Medical Records Medical Records [address] [place] [address] Abstract, Provider Social History Tobacco Use Types [...] on filedocumented in this encounter Care Teams Memory Care Director Relationship Specialty Start Date End Date Michelle Norris MD PCP - General Internal Medicine 03/05/17 03/16/21 [facility], Pcp PCP - General Internal Medicine 03/17/21 05/04/21 Michelle Norris MD PCP - General Internal Medicine 05/05/21 09/13/22 Rosetta Diamond MD [address] [place] [address] PCP - General Internal Medicine 09/14/22 documented as of this encounter
--- OUTSIDE RECORDS SUMMARY | 2024-12-18 15:29 | XMS_ITS | Encounter Summary ---
Author Organization [facility] Address [address] [place] [address] Care Team Providers Care Christmas Tree Grader Name Role Phone Michelle Norris MD Primary Care Provider Unavail able [facility], Pcp [facility] Michelle Norris MD Primary Care Provider Unavail able Rosetta Diamond MD Primary Care Provider + Encounter Details Date Type Department Care Team Description 03/08/2017 Hospital Medical Records [address] [place] [address] Sourav Lucas Social History Tobacco Use Types [...] on filedocumented in this encounter Care Teams Christmas Tree Grader Relationship Specialty Start Date End Date Michelle Norris MD PCP - General Internal Medicine 03/05/17 03/16/21 [facility], Pcp PCP - General Internal Medicine 03/17/21 05/04/21 Michelle Norris MD PCP - General Internal Medicine 05/05/21 09/13/22 Rosetta Diamond MD [address] [place] [address] PCP - General Internal Medicine 09/14/22 documented as of this encounter
--- OUTSIDE RECORDS SUMMARY | 2024-12-18 15:29 | XMS_ITS | Encounter Summary ---
Author Organization [facility] Address [address] [place] [address] Care Team Providers Care Senior Software Qa Engineer Name Role Phone Nikki Alcantar MD Primary Care Provider [phone] Michelle Norris MD Primary Care Provider Unavail [facility] Primary Care Provider [facility] Michelle Norris MD Primary Care Provider Unavail [facility] oRsetta Diamond MD Primary Care Provider + Encounter Details Date Type Department Care Team Description 04/23/2016 Hospital Medical Records [address] [place] [address]673 Rod Mccoy MD Social History Tobacco Use [...] filedocumented in this encounter Care Teams Senior Software Qa Engineer Relationship Specialty Start Date End Date Nikki Alcantar MD [address] [place] [address] PCP - General 06/26/05 03/04/17 Michelle Norris MD [address] [place] [address]407 PCP - General Internal Medicine 03/05/17 03/16/21 [facility] Pcp [address] [place] [address] 91471 PCP - General Internal Medicine 03/17/21 05/04/21 Michelle Norris MD [address] [place] [address] 27917 PCP - General Internal Medicine 05/05/21 09/13/22 Rosetta Diamond MD [address] [place] [address]20 PCP - General Internal Medicine 09/14/22 documented as of this encounter
--- OUTSIDE RECORDS SUMMARY | 2024-12-18 15:29 | XMS_ITS | Encounter Summary ---
Author Organization [facility] Address [address] [place] [address] Care Team Providers Care Customer Account Administrator Name Role Phone Michelle Norris MD Primary Care Provider Unavail able [facility] Primary Care Provider Unavailabl Michelle Lagos MD Primary Care Provider Unavail able Rosetta Diamond MD Primary Care Provider + Reason for Visit * Reason Onset Date Comments refill request 10/23/2019 lisinopril (PRIN IVIL,ZESTRIL) 5 MG tablet Encounter Details Date Type Department Care Team Description 10/23/2019 Refill Adult Medicine [address] [address] Michelle Norris MD refill request (lisinopril (PRINIVIL,ZESTRIL) [...] / Plan: [place] / Product Type: MEDICARE [id number] documented in this encounter Plan of Treatment Not on file documented as of this encounter Visit Diagnoses Not on filedocumented in this encounter Care Teams Customer Account Administrator Relationship Specialty Start Date End Date Michelle Norris MD PCP - General Internal Medicine 03/05/17 03/16/21 [facility], Pcp PCP - General Internal Medicine 03/17/21 05/04/21 Michelle Norris MD PCP - General Internal Medicine 05/05/21 09/13/22 Rosetta Diamond MD [address] [place] [address] PCP - General Internal Medicine 09/14/22 documented as of this encounter
--- OUTSIDE RECORDS SUMMARY | 2024-12-18 15:29 | XMS_ITS | Encounter Summary ---
Author Organization [facility] Address [address] [place] [address] Care Team Providers Care Bridal Service Sales And Management Name Role Phone Nikki Alcantar MD Primary Care Provider [phone] Michelle Norris MD Primary Care Provider Unavail [facility] Primary Care Provider [facility] Michelle Norris MD Primary Care Provider Unavail [facility] Rosetta Diamond MD Primary Care Provider + Encounter Details Date Type Department Care Team Description 05/14/2009 Hospital Medical Records [address] [place] [address] Subhash Mcdaniel Social History Tobacco Use Types Packs/Day Years [...] on filedocumented in this encounter Care Teams Bridal Service Sales And Management Relationship Specialty Start Date End Date Nikki Alcantar MD [address] [place] [address] PCP - General 06/26/05 03/04/17 Michelle Norris MD [address] [place] [address]14 PCP - General Internal Medicine 03/05/17 03/16/21 [facility], Pcp [address] [place] [address] PCP - General Internal Medicine 03/17/21 05/04/21 Michelle Norris MD [address] [place] [address] PCP - General Internal Medicine 05/05/21 09/13/22 Rosetta Diamond MD [address] [place] [address] PCP - General Internal Medicine 09/14/22 documented as of this encounter
--- OUTSIDE RECORDS SUMMARY | 2024-12-18 15:29 | XMS_ITS | Encounter Summary ---
Author Organization [facility] Address [address] [place] [address] Care Team Providers Care Cloth Measurer Name Role Phone Michelle Norris MD Primary Care Provider Unavail able [facility], Pcp [facility] Michelle Norris MD Primary Care Provider Unavail able Rosetta Diamond MD Primary Care Provider + Encounter Details Date Type Department Care Team Description 08/08/2019 Old Medical Records Medical Records [address] [place] [address] Abstract, Provider Social History Tobacco Use Types [...] in this encounter Care Teams Cloth Measurer Relationship Specialty Start Date End Date Michelle Norris MD PCP - General Internal Medicine 03/05/17 03/16/21 [facility], Pcp PCP - General Internal Medicine 03/17/21 05/04/21 Michelle Norris MD PCP - General Internal Medicine 05/05/21 09/13/22 Rosetta Diamond MD [address] [place] [address] PCP - General Internal Medicine 09/14/22 documented as of this encounter
--- OUTSIDE RECORDS SUMMARY | 2024-12-18 15:29 | XMS_ITS | Encounter Summary ---
Author Organization [facility] Address [address] [place] [address] Care Team Providers Care Deputy City Clerk Name Role Phone Nikki Alcantar MD Primary Care Provider [phone] Michelle Norris MD Primary Care Provider Unavail [facility] Primary Care Provider [facility] Michelle Norris MD Primary Care Provider Unavail [facility] Rosetta Diamond MD Primary Care Provider + Encounter Details Date Type Department Care Team Description 11/14/2016 Hospital Medical Records [address] [place] [address] Marlen Grande Social History Tobacco Use Types [...] on filedocumented in this encounter Care Teams Deputy City Clerk Relationship Specialty Start Date End Date Nikki Alcantar MD [address] [place] [address]222 PCP - General 06/26/05 03/04/17 Michelle Norris MD [address] [place] [address] 84465 PCP - General Internal Medicine 03/05/17 03/16/21 [facility], Pcp [address] [place] [address] 68309 PCP - General Internal Medicine 03/17/21 05/04/21 Michelle Norris MD [address] [place] [address] PCP - General Internal Medicine 05/05/21 09/13/22 Rosetta Diamond MD [address] [place] [address] PCP - General Internal Medicine 09/14/22 documented as of this encounter
--- OUTSIDE RECORDS SUMMARY | 2024-12-18 15:29 | XMS_ITS | Encounter Summary ---
Author Organization [facility] Address [address] [place] [address] Care Team Providers Care Assembler Finger Buffs Name Role Phone Nikki Alcantar MD Primary Care Provider [phone] Michelle Norris MD Primary Care Provider Unavail [facility] Primary Care Provider [facility] Michelle Norris MD Primary Care Provider Unavail [facility] Rosetta Diamond MD Primary Care Provider + Encounter Details Date Type Department Care Team Description 05/21/2009 Hospital Medical Records [address] [place] [address] Zay Puri Social History Tobacco Use Types [...] on filedocumented in this encounter Care Teams Assembler Finger Buffs Relationship Specialty Start Date End Date Nikki Alcantar MD [address] [place] [address] PCP - General 06/26/05 03/04/17 Michelle Norris MD [address] [place] [address] PCP - General Internal Medicine 03/05/17 03/16/21 [facility], Pcp [address] [place] [address] PCP - General Internal Medicine 03/17/21 05/04/21 Michelle Norris MD [address] [place] [address] [place] [address] PCP - General Internal Medicine 05/05/21 09/13/22 Rosetta Diamond MD [address] [place], [place] [phone] PCP - General Internal Medicine 09/14/22 documented as of this encounter
--- OUTSIDE RECORDS SUMMARY | 2024-12-18 15:29 | XMS_ITS | Encounter Summary ---
Author Organization [facility] Address [address] [place] [address] Care Team Providers Care Criminal Analyst Name Role Phone Nikki Alcantar MD Primary Care Provider [phone] Michelle Norris MD Primary Care Provider Unavail [facility] Primary Care Provider [facility] Michelle Norris MD Primary Care Provider Unavail [facility] Rosetta Diamond MD Primary Care Provider + Encounter Details Date Type Department Care Team Description 11/11/2016 Hospital Medical Records [address] [place] [address] Andrew Rollins Social History Tobacco Use Types [...] on filedocumented in this encounter Care Teams Criminal Analyst Relationship Specialty Start Date End Date Nikki Alcantar MD [address] [place] [address] PCP - General 06/26/05 03/04/17 Michelle Norris MD [address] [place] [address] 43960 PCP - General Internal Medicine 03/05/17 03/16/21 [facility], Pcp [address] [place] [address]240 PCP - General Internal Medicine 03/17/21 05/04/21 Michelle Norris MD [address] [place] [address] 99825 PCP - General Internal Medicine 05/05/21 09/13/22 Rosetta Diamond MD [address] [place] [address]20 PCP - General Internal Medicine 09/14/22 documented as of this encounter
--- OUTSIDE RECORDS SUMMARY | 2024-12-18 15:29 | XMS_ITS | Encounter Summary ---
Author Organization [facility] Address [address] [place] [address] Care Team Providers Care Database Administration Manager Name Role Phone Nikki Alcantar MD Primary Care Provider [phone] Michelle Norris MD Primary Care Provider Unavail able [facility] Michelle Norris MD Primary Care Provider Unavail able Rosetta Diamond MD Primary Care Provider + Reason for Visit * Reason Onset Date Comments Call From Hospital 05/11/2016 Encounter Details Date Type Department Care Team Description 05/11/2016 Telephone Adult Medicine [address] [phone] Nikki Alcantar MD [address] [place] [address] [phone] Call From Hospital Social History Tobacco Use [...] encounter Miscellaneous Notes * Telephone Encounter - Felicita Krishnamurthy - 05/11/2016 11:20 AM EDT FYI - For DR. Alcantar patient has been admitted to [facility] as of 05/09/16 . documented in this encounter Plan of Treatment Not on file documented as of this encounter Visit Diagnoses Not on filedocumented in this encounter Care Teams Database Administration Manager Relationship Specialty Start Date End Date Nikki Alcantar MD [address] [place] [address] PCP - General 06/26/05 03/04/17 Michelle Norris MD [address] [place] [address] PCP - General Internal Medicine 03/05/17 03/16/21 [place] [phone] PCP - General Internal Medicine 03/17/21 05/04/21 Michelle Norris MD [address] [place] [address] PCP - General Internal Medicine 05/05/21 09/13/22 Rosetta Diamond MD [address] [place], [place] [phone] PCP - General Internal Medicine 09/14/22 documented as of this encounter
--- OUTSIDE RECORDS SUMMARY | 2024-12-18 15:29 | XMS_ITS | Encounter Summary ---
Author Organization [facility] Address [address] [place] [address] Care Team Providers Care Cage Loader Name Role Phone Michelle Norris MD Primary Care Provider Unavail able [facility], Pcp Primary Care Provider Unavailabl Michelle Lagos MD Primary Care Provider Unavail able Rosetta Diamond MD Primary Care Provider + Reason for Visit * Reason Onset Date Comments Appointment Cancelled 10/30/2019 Encounter Details Date Type Department Care Team Description 10/30/2019 Telephone Adult [address] [address] Mcihelle Norris MD Appointment Cancelled Social History Tobacco [...] 10/30/2019 10:29 AM EST FYI-Call received from [facility] to cancel the 10/31 hospital f/u appointment. Patient is currently at [facility], admitted on 10/24/19. documented in this encounter Plan of Treatment Not on file documented as of this encounter Visit Diagnoses Not on filedocumented in this encounter Care Teams Cage Loader Relationship Specialty Start Date End Date Michelle Norris MD PCP - General Internal Medicine 03/05/17 03/16/21 [facility], Pcp PCP - General Internal Medicine 03/17/21 05/04/21 Michelle Norris MD PCP - General Internal Medicine 05/05/21 09/13/22 Rosetta Diamond MD [address] [place] [address] PCP - General Internal Medicine 09/14/22 documented as of this encounter
--- OUTSIDE RECORDS SUMMARY | 2024-12-18 15:29 | XMS_ITS | Encounter Summary ---
Author Organization [facility] Address [address] [place] [address] Care Team Providers Care House Fellow Name Role Phone Nikki Alcantar MD Primary Care Provider [phone] Michelle Norris MD Primary Care Provider Unavail [facility] Primary Care Provider [facility] Michelle Norris MD Primary Care Provider Unavail [facility] Rosetta Diamond MD Primary Care Provider + Encounter Details Date Type Department Care Team Description 05/22/2009 Hospital Medical Records [address] [place] [address] [phone] Shelly Espana MD Social History Tobacco Use [...] on filedocumented in this encounter Care Teams House Fellow Relationship Specialty Start Date End Date Nikki Alcantar MD [address] [place] [address] 54485 PCP - General 06/26/05 03/04/17 Michelle Norris MD [address] [place] [address] PCP - General Internal Medicine 03/05/17 03/16/21 [facility], Pcp [address] [place] [address] PCP - General Internal Medicine 03/17/21 05/04/21 Michelle Norris MD [address] [place] [address] [place] [address] PCP - General Internal Medicine 05/05/21 09/13/22 Rosetta Diamond MD [address] [place], [place] [phone] PCP - General Internal Medicine 09/14/22 documented as of this encounter
--- OUTSIDE RECORDS SUMMARY | 2024-12-18 15:29 | XMS_ITS | Encounter Summary ---
Author Organization [facility] Address [address] [place] [address] Care Team Providers Care Coin Counter And Wrapper Name Role Phone Michelle Norris MD Primary Care Provider Unavail [facility] Pcp [facility] Michelle Norris MD Primary Care Provider Unavail able Rosetta Diamond MD Primary Care Provider + Encounter Details Date Type Department Care Team Description 08/28/2019 Old Medical Records Medical Records [address] [place] [address] 22761 Abstract, Provider Social History Tobacco Use Types [...] on filedocumented in this encounter Care Teams Coin Counter And Wrapper Relationship Specialty Start Date End Date Michelle Norris MD PCP - General Internal Medicine 03/05/17 03/16/21 [facility], Pcp PCP - General Internal Medicine 03/17/21 05/04/21 Michelle Norris MD PCP - General Internal Medicine 05/05/21 09/13/22 Rosetta Diamond MD [address] [place] [address] PCP - General Internal Medicine 09/14/22 documented as of this encounter
--- OUTSIDE RECORDS SUMMARY | 2024-12-18 15:29 | XMS_ITS | Encounter Summary ---
Author Organization [facility] Address [address] [place] [address] Care Team Providers Care Acupressurist Name Role Phone Nikki Alcantar MD Primary Care Provider [phone] Michelle Norris MD Primary Care Provider Unavail able [facility] Primary Care Provider [facility] Michelle Norris MD Primary Care Provider Unavail able Rosetta Diamond MD Primary Care Provider + Reason for Visit * Reason Onset Date Comments Faxed Refill 02/01/2017 Encounter Details Date Type Department Care Team Description 02/01/2017 Refill Adult Medicine [address] [phone] Nikki Alcantar MD [address] [place] [address] [phone] Faxed Refill Social History Tobacco Use Types [...] REQUESTED IS ON THE MED LIST ABOVE) [facility] MANUFA[facility]URERS SERVICE REPRESENTATIVE WILL BRING PATIENT IN FOR LABS All of the medications requested were on the CURRENT MEDS list Did you check the Pharmacy information above?: YES Patient wants: 30 -day supply Is this a mail order prescription request ? NO Patients current insurance carrier is: [place] / [place] / Product Type: MEDICARE [id number] documented in this encounter Plan of Treatment Not on file documented as of this encounter Visit Diagnoses Not on filedocumented in this encounter Care Teams Acupressurist Relationship Specialty Start Date End Date Nikki Alcantar MD [address] [place] [address] PCP - General 06/26/05 03/04/17 Michelle Norris MD [address] [place] [address] 11710 PCP - General Internal Medicine 03/05/17 03/16/21 [facility], Pcp [address] [place] [address] 25047 PCP - General Internal Medicine 03/17/21 05/04/21 Michelle Norris MD [address] [place] [address] 05389 PCP - General Internal Medicine 05/05/21 09/13/22 [place]etta Diamond MD [address] [place] [address] PCP - General Internal Medicine 09/14/22 documented as of this encounter
--- OUTSIDE RECORDS SUMMARY | 2024-12-18 15:29 | XMS_ITS | Encounter Summary ---
Author Organization [facility] Address [address] [place] [address] Care Team Providers Care Conveyor Belt Operator Name Role Phone Michelle Norris MD Primary Care Provider Unavail able [facility], Pcp [facility] Michelle Lagos MD Primary Care Provider Unavail able [place] Diamond MD Primary Care Provider + Reason for Visit * Reason Onset Date Comments Faxed Order 09/19/2019 Encounter Details Date Type Department Care Team Description 09/19/2019 Telephone Adult [address] [address] Michelle Norris MD Faxed Order Social History [...] 11:19 AM EST Faxed orders received from [facility], please sign and fax back to [phone]. documented in this encounter Plan of Treatment Not on file documented as of this encounter Visit Diagnoses Not on filedocumented in this encounter Care Teams Conveyor Belt Operator Relationship Specialty Start Date End Date Michelle Norris MD PCP - General Internal Medicine 03/05/17 03/16/21 [facility], Pcp PCP - General Internal Medicine 03/17/21 05/04/21 Michelle Norris MD PCP - General Internal Medicine 05/05/21 09/13/22 Rosetta Diamond MD [address] [place] [address] PCP - General Internal Medicine 09/14/22 documented as of this encounter
--- OUTSIDE RECORDS SUMMARY | 2024-12-18 15:29 | XMS_ITS | Encounter Summary ---
Author Organization [facility] Address [address] [place] [address] Care Team Providers Care Lehr Cutter Name Role Phone Nikki Kumar MD Primary Care Provider [phone] Michelle Norris MD Primary Care Provider Unavail [facility] Michelle Norris MD Primary Care Provider Unavail able [place] Diamond MD Primary Care Provider + Reason for Visit * Reason Onset Date Comments Faxed Order 09/22/2016 Encounter Details Date Type Department Care Team Description 09/22/2016 Telephone Adult Medicine [address] [phone] Nikki Kumar MD [address] [place] [address] [phone] Faxed Order Social History Tobacco Use Types [...] on filedocumented in this encounter Care Teams Lehr Cutter Relationship Specialty Start Date End Date Nikki Kumar MD [address] [place] [address] PCP - General 06/26/05 03/04/17 Michelle Norris MD [address] [place] [address] PCP - General Internal Medicine 03/05/17 03/16/21 [place] [address] PCP - General Internal Medicine 03/17/21 05/04/21 Michelle Norris MD [address] [place] [address] PCP - General Internal Medicine 05/05/21 09/13/22 Rosetta Diamond MD [address] [place] [address] PCP - General Internal Medicine 09/14/22 documented as of this encounter
--- OUTSIDE RECORDS SUMMARY | 2024-12-18 15:29 | XMS_ITS | Encounter Summary ---
Author Organization [facility] Address [address] [place] [address] Care Team Providers Care Robotic Weld Technician Name Role Phone Nikki Alcantar MD Primary Care Provider [phone] Michelle Norris MD Primary Care Provider Unavail [facility] Primary Care Provider [facility] Michelle Norris MD Primary Care Provider Unavail [facility] Rosetta Diamond MD Primary Care Provider + Encounter Details Date Type Department Care Team Description 05/24/2016 Hospital Medical Records [address] [place] [address] Chuck Dave MD Social History Tobacco Use [...] on filedocumented in this encounter Care Teams Robotic Weld Technician Relationship Specialty Start Date End Date Nikki Alcantar MD [address] [place] [address]708 PCP - General 06/26/05 03/04/17 Michelle Norris MD [address] [place] [address] 70076 PCP - General Internal Medicine 03/05/17 03/16/21 [facility], Pcp [address] [place] [address] PCP - General Internal Medicine 03/17/21 05/04/21 Michelle Norris MD [address] [place] [address] 08247 PCP - General Internal Medicine 05/05/21 09/13/22 Rosetta Diamond MD [address] [place] [address] PCP - General Internal Medicine 09/14/22 documented as of this encounter
--- OUTSIDE RECORDS SUMMARY | 2024-12-18 15:29 | XMS_ITS | Encounter Summary ---
Author Organization [facility] Address [address] [place] [address] Care Team Providers Care Psychiatric Nurse Practitioner Name Role Phone Michelle Norris MD Primary Care Provider Unavail able [facility], Pcp Primary Care Provider Unavailabl Michelle Lagos MD Primary Care Provider Unavail able Rosetta Diamond MD Primary Care Provider + Reason for Visit * Reason Onset Date Comments Medication 12/16/2019 Colonoscopy Encounter Details Date Type Department Care Team Description 12/16/2019 Refill Gastroenterology - [address] [place] [phone] Reese Powers MD Medication (Colonoscopy) Social History [...] on filedocumented in this encounter Care Teams Psychiatric Nurse Practitioner Relationship Specialty Start Date End Date Michelle Norris MD PCP - General Internal Medicine 03/05/17 03/16/21 [facility], [facility] PCP - General Internal Medicine 03/17/21 05/04/21 Michelle Norris MD PCP - General Internal Medicine 05/05/21 09/13/22 Rosetta Diamond MD [address] [place] [address] PCP - General Internal Medicine 09/14/22 documented as of this encounter
--- OUTSIDE RECORDS SUMMARY | 2024-12-18 15:29 | XMS_ITS | Encounter Summary ---
Author Organization [facility] Address [address] [place] [address] Care Team Providers Care Clay Temperer Name Role Phone Nikki Alcantar MD Primary Care Provider [phone] Michelle Norris MD Primary Care Provider Unavail [facility] Primary Care Provider [facility] [place] [facility] Michelle Norris MD Primary Care Provider Unavail [facility] Rosetta Diamond MD Primary Care Provider + Encounter Details Date Type Department Care Team Description 05/07/2009 Hospital Medical Records [address] [place] [address] Rosana Gonzalez MD Social History Tobacco Use [...] on filedocumented in this encounter Care Teams Clay Temperer Relationship Specialty Start Date End Date Nikki Alcantar MD [address] [place] [address] PCP - General 06/26/05 03/04/17 Michelle Norris MD [address] [place] [address] PCP - General Internal Medicine 03/05/17 03/16/21 [facility], Pcp [address] [place] [address] PCP - General Internal Medicine 03/17/21 05/04/21 Michelle Norris MD [address] [place] [address] [place] [address] PCP - General Internal Medicine 05/05/21 09/13/22 Rosetta Diamond MD [address] [place], [place] [phone] PCP - General Internal Medicine 09/14/22 documented as of this encounter
--- OUTSIDE RECORDS SUMMARY | 2024-12-18 15:29 | XMS_ITS | Encounter Summary ---
Author Organization [facility] Address [address] [place] [address] Care Team Providers Care Camp Coordinator Name Role Phone Nikki Kumar MD Primary Care Provider [phone] Michelle Norris MD Primary Care Provider Unavail [facility] Primary Care Provider [facility] [place] Michelle Norris MD Primary Care Provider Unavail able Rosetta Diamond MD Primary Care Provider + Reason for Visit * Reason Onset Date Comments Faxed Order 10/18/2016 Encounter Details Date Type Department Care Team Description 10/18/2016 Telephone Adult Medicine [address] [id number] Nikki Kumar MD [address] [place] [address] [phone] Faxed Order Social History Tobacco Use Types [...] * Telephone Encounter - Dianne Anglin - 10/18/2016 1:15 PM EST Sign order from [facility]. Fax placed in dr kumar incoming. documented in this encounter Plan of Treatment Not on file documented as of this encounter Visit Diagnoses Not on filedocumented in this encounter Care Teams Camp Coordinator Relationship Specialty Start Date End Date Nikki Kumar MD [address] [place] [address] PCP - General 06/26/05 03/04/17 Michelle Norris MD [address] [place] [address] PCP - General Internal Medicine 03/05/17 03/16/21 [place] [address] PCP - General Internal Medicine 03/17/21 05/04/21 Michelle Norris MD [address] [place] [address] PCP - General Internal Medicine 05/05/21 09/13/22 Rosetta Diamond MD [address] [place] [address] PCP - General Internal Medicine 09/14/22 documented as of this encounter
--- OUTSIDE RECORDS SUMMARY | 2024-12-18 15:29 | XMS_ITS | Encounter Summary ---
Author Organization [facility] Address [address] [place] [address] Care Team Providers Care Program Associate Name Role Phone Nikki Alcantar MD Primary Care Provider [phone] Michelle Norris MD Primary Care Provider Unavail [facility] Primary Care Provider [facility] [place] [facility] Michelle Norris MD Primary Care Provider Unavail [facility] Rosetta Diamond MD Primary Care Provider + Encounter Details Date Type Department Care Team Description 03/04/2013 Night Triage Doc Medical Records [address] [place] [address] Abstract, Provider Social History Tobacco Use Types Packs/Day Years Used Date Smoking Tobacco: Every Day Cigarettes 0.5 Smokeless Tobacco: Never Comments:Started @ age 32 [...] on filedocumented in this encounter Care Teams Program Associate Relationship Specialty Start Date End Date Nikki Alcantar MD [address] [place] [address] PCP - General 06/26/05 03/04/17 Michelle Norris MD [address] [place] [address] PCP - General Internal Medicine 03/05/17 03/16/21 [facility], Pcp [address] [place] [address] PCP - General Internal Medicine 03/17/21 05/04/21 Michelle Norris MD [address] [place] [address] [place] [address] PCP - General Internal Medicine 05/05/21 09/13/22 Rosetta Diamond MD [address] [place], [place] [phone] PCP - General Internal Medicine 09/14/22 documented as of this encounter
--- OUTSIDE RECORDS SUMMARY | 2024-12-18 15:29 | XMS_ITS | Encounter Summary ---
Author Organization [facility] Address [address] [place] [address] Care Team Providers Care Cut Filer Name Role Phone Nikki Alcantar MD Primary Care Provider [phone] Michelle Norris MD Primary Care Provider Unavail able [facility] Michelle Norris MD Primary Care Provider Unavail able Rosetta Diamond MD Primary Care Provider + Reason for Visit * Reason Onset Date Comments VNA Call 09/05/2016 Encounter Details Date Type Department Care Team Description 09/05/2016 Telephone Adult Medicine [address] [phone] Nikki Alcantar MD [address] [place] [address] [phone] VNA Call Social History Tobacco Use Types [...] on filedocumented in this encounter Care Teams Cut Filer Relationship Specialty Start Date End Date Nikki Alcantar MD [address] [place] [address] PCP - General 06/26/05 03/04/17 Michelle Norris MD [address] [place] [address] PCP - General Internal Medicine 03/05/17 03/16/21 [place] [address] PCP - General Internal Medicine 03/17/21 05/04/21 Michelle Norris MD [address] [place] [address] PCP - General Internal Medicine 05/05/21 09/13/22 Rosetta Diamond MD [address] [place] [address] PCP - General Internal Medicine 09/14/22 documented as of this encounter
--- OUTSIDE RECORDS SUMMARY | 2024-12-18 15:29 | XMS_ITS | Encounter Summary ---
Author Organization [facility] Address [address] [place] [address] Care Team Providers Care Monogram Machine Operator Name Role Phone Nikki Alcantar MD Primary Care Provider [phone] Michelle Norris MD Primary Care Provider Unavail [facility] Primary Care Provider [facility] Michelle Norris MD Primary Care Provider Unavail [facility] Rosetta Diamond MD Primary Care Provider + Encounter Details Date Type Department Care Team Description 01/22/2013 Night Triage Doc Medical Records [address] [place] [address] Abstract, Provider Social History Tobacco Use Types [...] on filedocumented in this encounter Care Teams Monogram Machine Operator Relationship Specialty Start Date End Date Nikki Alcantar MD [address] [place] [address] PCP - General 06/26/05 03/04/17 Michelle Norris MD [address] [place] [address]39 PCP - General Internal Medicine 03/05/17 03/16/21 [facility], Pcp [address] [place] [address] PCP - General Internal Medicine 03/17/21 05/04/21 Michelle Norris MD [address] [place], [place] [phone] PCP - General Internal Medicine 05/05/21 09/13/22 Rosetta Diamond MD [address] [place] [address] PCP - General Internal Medicine 09/14/22 documented as of this encounter
--- OUTSIDE RECORDS SUMMARY | 2024-12-18 15:29 | XMS_ITS | Encounter Summary ---
Author Organization [facility] Address [address] [place] [address] Care Team Providers Care Hose Seamer Name Role Phone Nikki Alcantar MD Primary Care Provider [phone] Michelle Norris MD Primary Care Provider Unavail [facility] Primary Care Provider [facility] Michelle Norris MD Primary Care Provider Unavail [facility] Rosetta Diamond MD Primary Care Provider + Encounter Details Date Type Department Care Team Description 11/28/2012 Parachute Taper Report Medical Records [address] [place] [address] Julio Paredes MD Social History Tobacco Use [...] on filedocumented in this encounter Care Teams Hose Seamer Relationship Specialty Start Date End Date Nikki Alcantar MD [address] [place] [address] PCP - General 06/26/05 03/04/17 Michelle Norris MD [address] [place] [address] PCP - General Internal Medicine 03/05/17 03/16/21 [facility], Pcp [address] [place] [address] PCP - General Internal Medicine 03/17/21 05/04/21 Michelle Norris MD [address] [place] [address] [place] [address] PCP - General Internal Medicine 05/05/21 09/13/22 Rosetta Diamond MD [address] [place], [place] [phone] PCP - General Internal Medicine 09/14/22 documented as of this encounter
--- OUTSIDE RECORDS SUMMARY | 2024-12-18 15:29 | XMS_ITS | Encounter Summary ---
Author Organization [facility] Address [address] [place] [address] Care Team Providers Care Therapy Teacher Name Role Phone Nikki Alcantar MD Primary Care Provider Michelle Norris MD Primary Care Provider Unavail [facility] Primary Care Provider [facility] Michelel Norris MD Primary Care Provider Unavail able Rosetta Diamond MD Primary Care Provider + Reason for Visit * Reason Onset Date Comments Call From Hospital 06/07/2016 Encounter Details Date Type Department Care Team Description 06/07/2016 Telephone Adult Medicine [address] [phone] Nikki Alcantar MD [address] [place] [address] [phone] Call From Hospital Social History Tobacco Use [...] Donavon Harvey - 06/07/2016 8:48 AM EDT [facility] Phsyc unit calling to inform us that patient was admitted to phsyc unit yesterday documented in this encounter Plan of Treatment Not on file documented as of this encounter Visit Diagnoses Not on filedocumented in this encounter Care Teams Therapy Teacher Relationship Specialty Start Date End Date Nikki Alcantar MD [address] [place] [address] PCP - General 06/26/05 03/04/17 Michelle Norris MD [address] [place] [address] PCP - General Internal Medicine 03/05/17 03/16/21 [place] [address] PCP - General Internal Medicine 03/17/21 05/04/21 Michelle Norris MD [address] [place] [address] PCP - General Internal Medicine 05/05/21 09/13/22 Rosetta Diamond MD [address] [place], [place] [phone] PCP - General Internal Medicine 09/14/22 documented as of this encounter
--- OUTSIDE RECORDS SUMMARY | 2024-12-18 15:29 | XMS_ITS | Encounter Summary ---
Author Organization [facility] Address [address] [place] [address] Care Team Providers Care Open Soaper Tender Name Role Phone Nikki Alcantar MD Primary Care Provider [phone] Michelle Norris MD Primary Care Provider Unavail [facility] Primary Care Provider [facility] Michelle Norris MD Primary Care Provider Unavail [facility] Rosetta Diamond MD Primary Care Provider + Reason for Visit * Reason Onset Date Comments medication problems 01/30/2013 Encounter Details Date Type Department Care Team Description 01/30/2013 Telephone Adult Medicine [address] [phone] Nikki Alcantar MD [address] [place] [address] [phone] medication problems Social History Tobacco Use Types [...] Telephone Encounter - Lucita [place] M.A. - 01/30/2013 1:57 PM EDT Fax to pcp * Telephone Encounter - Sho Souza - 01/30/2013 1:29 PM EDT What is the name of the medication patient is having a problem with?: proton Pump inhibitors (PPIs) What is the problem?: reevaluating twice daily dosing of Proton Pump Inhibitiors (PPIs) - see fax Is the patient calling about the problem? NO If the patient is not the caller who is? silverscript Is this a NEW medication?: unknown How long has the patient been taking this medication? unknown Who prescribed this medication for the patient? Nikki Alcantar MD Who is patients PCP?: Nikki Alcantar MD [place] Plan: [place] Product Type: MEDICARE [id number] documented in this encounter Plan of Treatment Not on file documented as of this encounter Visit Diagnoses Not on filedocumented in this encounter Care Teams Open Soaper Tender Relationship Specialty Start Date End Date Nikki Alcantar MD [address] [place] [address] PCP - General 06/26/05 03/04/17 Michelle Norris MD [address] [place] [address] PCP - General Internal Medicine 03/05/17 03/16/21 [place] [address] PCP - General Internal Medicine 03/17/21 05/04/21 Michelle Norris MD [address] [place] [address] PCP - General Internal Medicine 05/05/21 09/13/22 Rosetta Diamond MD [address] [place] [address] PCP - General Internal Medicine 09/14/22 documented as of this encounter
--- OUTSIDE RECORDS SUMMARY | 2024-12-18 15:29 | XMS_ITS | Encounter Summary ---
Author Organization [facility] Address [address] [place] [address] Care Team Providers Care School Teacher Name Role Phone Nikki Alcantar MD Primary Care Provider [phone] Michelle Norris MD Primary Care Provider Unavail [facility] Primary Care Provider [facility] Michelle Norris MD Primary Care Provider Unavail [facility] Rosetta Diamond MD Primary Care Provider + Encounter Details Date Type Department Care Team Description 05/11/2016 Hospital Medical Records [address] [place] [id number] Chuck Dave MD Social History Tobacco Use [...] on filedocumented in this encounter Care Teams School Teacher Relationship Specialty Start Date End Date Nikki Alcantar MD [address] [place] [id number] PCP - General 06/26/05 03/04/17 Michelle Norris MD [address] [place] [address] 10009 PCP - General Internal Medicine 03/05/17 03/16/21 [facility], Pcp [address] [place] [address] 39534 PCP - General Internal Medicine 03/17/21 05/04/21 Michelle Norris MD [address] [place] [address] [phone] PCP - General Internal Medicine 05/05/21 09/13/22 Rosetta Diamond MD [address] [place] [address] PCP - General Internal Medicine 09/14/22 documented as of this encounter
--- OUTSIDE RECORDS SUMMARY | 2024-12-18 15:29 | XMS_ITS | Encounter Summary ---
Author Organization [facility] Address [address] [place] [address] Care Team Providers Care Finished Yarn Examiner Name Role Phone Nikki Alcantar MD Primary Care Provider [phone] Michelle Norris MD Primary Care Provider Unavail [facility] Primary Care Provider [facility] Michelle Norris MD Primary Care Provider Unavail [facility] Rosetta Diamond MD Primary Care Provider + Encounter Details Date Type Department Care Team Description 10/19/2016 Hospital Medical Records [address] [place] [id number] Sourav Lucas Social History Tobacco Use Types [...] on filedocumented in this encounter Care Teams Finished Yarn Examiner Relationship Specialty Start Date End Date Nikki Alcantar MD [address] [place] [address] PCP - General 06/26/05 03/04/17 Michelle Norris MD [address] [place] [address] PCP - General Internal Medicine 03/05/17 03/16/21 [facility], Pcp [address] [place] [address] PCP - General Internal Medicine 03/17/21 05/04/21 Michelle Norris MD [address] [place] [address] [place] [address] PCP - General Internal Medicine 05/05/21 09/13/22 Rosetta Diamond MD [address], [place] [id number] PCP - General Internal Medicine 09/14/22 documented as of this encounter
== END 2024-12-18 12:48 | disposition home or self-care (01) ==
LOC: HO.LABR 12:47
PROVIDERS: PCP Nurse Practitioner Family; Visit Provider Psychiatry & Neurology Psychiatry
DX: Z79.899 Other long term (current) drug therapy (principal)
CPT/HCPCS: 36415; 85025

== ENCOUNTER 2024-12-26 20:57 | Emergency (ER) | payer MEDICARE, MEDICAID, SELFPAY ==
[2024-12-26 21:02] VITALS: BP 144/90; BP 178/90; PULSE 119; PULSE 120; RESP 18; TEMP 36.8; O2SAT 95; O2SAT 99; BMI 44.7
[2024-12-26 21:30] LABS: MANUAL DIFF FLAG NO
[2024-12-26 21:31] LABS: Basophils Percent Auto 0.4 % (0-2); Eosinophils Absolute Auto 0.4 X10*3/uL (0.0-0.4); Eosinophils Percent Auto 3.7 % (0-4); Hematocrit 37.7 % (37.0-47.0); Imm Gran Abs Auto 0.06 X10*3/uL (0.00-0.03); Imm Gran Pct Auto 0.6 % (0.0-0.4); Lymphocytes Absolute Auto 2.1 X10*3/uL (1.2-4.9); Lymphocytes Percent Auto 20.5 % (20-40); Mean Corpuscular HGB Conc 34.5 g/dl (31.0-35.0); Mean Corpuscular Hemoglobin 31.2 pg (27.0-33.0); Mean Corpuscular Volume 90.4 fL (80.0-98.0); Mean Platelet Volume 8.9 fL (9.4-12.3); Monocytes Absolute Auto 0.7 X10*3/uL (0.1-1.2); Monocytes Percent Auto 7.1 % (2-11); Neutrophils Absolute Auto 6.9 x10*3/uL (2.0-8.3); Neutrophils Percent Auto 67.7 % (45-73); Platelet Count 325 X10*3/uL (160-400); Red Blood Count 4.17 X10*6/uL (4.20-5.50); Red Cell Distribution Width 13.1 % (11.0-16.0); White Blood Count 10.1 X10*3/uL (4.8-10.8)
[2024-12-26 21:33] LABS: Appearance Urine Clear; Color Urine Yellow; Glucose Urine UA Negative (Negative); Leukocyte Esterase Urine Small (1+) (Negative); Nitrite Urine Negative (Negative); PH 5.5 (5.0-9.0); UMIC TRIGGER UACC YES; Urine Blood Negative (Negative); Urine Ketones Negative (Negative); Urine Protein Negative (Neg-Trace)
--- NOTE | 2024-12-26 21:33 | MHC.EDTECH ---
Belongings Secured by security staff in [facility] shelf #3
[2024-12-26 21:44] LABS: Bacteria Urine None Seen (None Seen); Hyaline Casts Urine 0-2 /LPF (0-2); RBC Urine 0-2 /HPF (0-2); Squamous Epithelial Cell Urine 0-2 /HPF (0-2); UACC Culture Trigger YES; WBC Urine 0-5 /HPF (0-5)
[2024-12-26 21:48] LABS: Alanine Aminotransferase 33 U/L (0-31); Albumin Level 4.4 g/dL (3.5-5.0); Alkaline Phosphatase 167 U/L (39-117); Anion Gap 14 (12-20); Aspartate Amino Transferase 25 U/L (5-31); Bilirubin Total 0.2 mg/dL (0.0-1.0); Blood Urea Nitrogen 13 mg/dL (9-16); Calcium 9.7 mg/dL (8.4-10.2); Carbon Dioxide 24 mmol/L (22-29); Chloride 107 mmol/L (96-108); Creatinine Clr Calc Pharmacy 116.7; Estimated Glomerular Filt Rate > 60; Ethanol < 10 mg/dL; Glucose Random 119 mg/dL (60-115); Lipase 19 U/L (8-78); Sodium 141 mmol/L (135-145); Total Protein 7.5 g/dL (6.5-8.0)
[2024-12-26 21:49] LABS: Amphetamine Screen Urine Not Detected (Not Detect); Barbiturates, Urine Not Detected (Not Detect); Benzodiazepines Screen Urine Not Detected (Not Detect); Buprenorphine Scr Not Detected (Not Detect); Cannabinoid Screen Urine Not Detected (Not Detect); Cocaine Screen Urine Not Detected (Not Detect); Fentanyl, urine Not Detected (Not Detect); Methadone Screen, Urine Not Detected (Not Detect); Opiate Screen Urine Not Detected (Not Detect); Oxycodone Screen Urine Not Detected (Not Detect); Phencyclidine Screen Urine Not Detected (Not Detect)
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
--- NOTE | 2024-12-26 22:23 | ED.GENADULT ---
HPI - General Adult General Chief complaint: General Medical Stated complaint: rash around groin x3 days, from [facility] home Time Seen by Provider: 12/26/24 21:37 Source: patient Mode of arrival: ambulatory Limitations: no limitations History of Present Illness ED Provider: HPI narrative: Patient with PTSD depression been here multiple times initially comes here as she has ongoing rash in the left groin areas using the in his nstatin powder which is not getting better also was hearing voices to kill herself but at this time denies any voices feels safe to go home Related Data Home Medications ?Medication ?Instructions ?Recorded ?Confirmed albuterol sulfate 90 mcg/actuation 2 puff inhalation Q6H PRN Wheezing 06/24/24 12/07/24 aerosol inhaler amlodipine 5 mg tablet 5 mg PO DAILY 06/24/24 12/07/24 atorvastatin 10 mg tablet 10 mg PO DAILY 06/24/24 12/07/24 buspirone 10 mg tablet 10 mg PO BID 06/24/24 12/07/24 clozapine 100 mg tablet 100 mg PO BEDTIME 06/24/24 12/07/24 fluoxetine 40 mg capsule 80 mg PO DAILY 06/24/24 12/07/24 fluphenazine HCl 5 mg tablet 15 mg PO BID 06/24/24 12/07/24 montelukast 10 mg tablet 10 mg PO BEDTIME 06/24/24 12/07/24 pantoprazole 20 mg tablet,delayed 40 mg PO BID 06/24/24 12/07/24 release prazosin 2 mg capsule 4 mg PO BEDTIME 06/24/24 12/07/24 metformin 500 mg tablet 500 mg PO BID 07/15/24 12/07/24 famotidine 20 mg tablet 10 mg PO TIDWM 10/01/24 12/07/24 ferrous sulfate 325 mg (65 mg 325 mg PO BID 10/01/24 12/07/24 iron) tablet fluticasone fur. 200 mcg-umeclid 1 ea inhalation DAILY 10/01/24 12/07/24 62.5 mcg-vilant 25 mcg inhalat.powder (Trelegy Ellipta) mirtazapine 15 mg tablet 15 mg PO BEDTIME 10/01/24 12/07/24 nicotine 21 mg/24 hr daily 1 patch topical DAILY PRN Nicotine 11/04/24 12/07/24 transdermal patch Cravings Previous Rx's ?Medication ?Instructions ?Recorded nystatin 100,000 unit/gram topical 1 appl topical BID #60 grams 09/25/24 powder temazepam 15 mg capsule 15 mg PO BEDTIME PRN if awake at 10/06/24 2AM 30 days #30 caps nystatin-triamcinolone 100,000 1 appl topical BID #30 grams 12/26/24 unit/g-0.1 % topical cream Allergies Allergy/AdvReac Type Severity Reaction Status Date / Time azithromycin [AZITHROMYCIN] Allergy Severe Rash Verified 12/26/24 21:04 Fish Containing Products Allergy Severe Anaphylaxis Verified 12/26/24 21:04 codeine [Codeine] Allergy Intermediate Rash Verified 12/26/24 21:04 Penicillins Allergy Intermediate Rash Verified 12/26/24 21:04 prednisone [Prednisone] Allergy Intermediate Rash Verified 12/26/24 21:04 Sulfa (Sulfonamide Allergy Intermediate Rash Verified 12/26/24 21:04 Antibiotics) [Sulfa (Sulfonamides)] ziprasidone [From Geodon] Allergy Intermediate dysuria, Verified 12/26/24 21:04 rash lithium Allergy Unknown Rash Verified 12/26/24 21:04 Review of Systems Review of Systems: Yes all other systems are reviewed and are negative PMFSH Past Medical History Medical History Asthma Suicidal ideation MDD (major depressive disorder), recurrent episode, severe Chest pain Acute anxiety COVID-19 Full body hives Major depression Dizziness Suicide attempt UTI (urinary tract infection) Acetaminophen overdose COVID History of attempted suicide History of non-suicidal self-harm Hypomagnesemia Suicide attempt Suicide attempt by acetaminophen overdose Acetaminophen overdose Depression Diabetes type 2, controlled Borderline personality disorder PTSD (post-traumatic stress disorder) Overdose GERD (gastroesophageal reflux disease) Mood disorder Hyperlipidemia Bronchitis Social History Social History Household Members: Other Household Members Other:: long-term members Housing: Other Housing Other:: long-term Do you presently have visiting nurse or other home services: No Unable to assess alcohol history related to: Unknown Alcohol intake: never Comment: sitter in room Patient Tobacco Use Status: Current everyday Tobacco user Tobacco use type: Cigarette Cigarette Packs Per Day: 1 Cigarettes Per Day: 20.0 Years Smoked: 10 e-Cigarette/Vaping Use: Never Used Second Hand Smoke Exposure: No Substance Use Type: Caffiene Advance Directives: No Advance Directives Information Provided: No service: No Current occupational status: unemployed and disabled Sexual orientation: Straight/Heterosexual Physical Exam ED Vital Signs: Vital Signs - 24 hr 12/26/24 22:44 Temperature 98.6 F Pulse Rate 80 Respiratory Rate 18 Blood Pressure 138/82 Pulse Oximetry 97 Oxygen Delivery Method Room Air BMI result Body Mass Index 44.7 Appearance: Alert. Oriented X3. No acute distress. Eyes: PERRLA, No Nystagmus ENT: Pharynx normal. Oral Mucosa moist Neck: Normal inspection. Neck supple. CVS: Normal heart rate and rhythm. Pulses normal. Respiratory: No respiratory distress. Equal air entry bilateral, no wheezing/rales/rhonchi Abdomen: Soft and nontender. Bowel sounds are present, no mass palpable, no CVA tenderness Skin: Skin warm and dry. Normal skin color. Normal skin turgor. Extremities: No lower extremity edema. No calf tenderness Neuro: Oriented X 3. No motor deficit. No sensory deficit.No cerebellar signs , cranial nerves II-XII intact Medications Administered Discontinued Medications Generic Name Dose Route Start Last Admin Trade Name Freq PRN Reason Stop Dose Admin Nystatin/Triamcinolone Acetonide 1 appl 12/26/24 22:17 12/26/24 22:40 Nystatin/Triamcinolone Cream 15 Gm Tube TOPICAL 12/26/24 22:18 1 appl ONCE ONE Administration Protocol Medical Decision Making Medical Decision Making [facility] Narrative: Been infrequent ED visits with intertrigo of the left groin area does have depression and pediatric but it is with this time feeling much better feels safe to go home will prescribe nystatin with triamcinolone for inflammation discharge the patient home Lab Data [facility] Lab Attestation statement: I reviewed the patient's lab results. 12/26/24 21:24 12/26/24 21:24 Labs: Lab Results 12/26/24 Range/Units 21:24 WBC 10.1 (4.8-10.8) X10*3/uL RBC 4.17 L (4.20-5.50) X10*6/uL Hgb 13.0 (12.0-16.0) g/dl Hct 37.7 (37.0-47.0) % MCV 90.4 (80.0-98.0) fL MCH 31.2 (27.0-33.0) pg MCHC 34.5 (31.0-35.0) g/dl RDW 13.1 (11.0-16.0) % Plt Count 325 (160-400) X10*3/uL MPV 8.9 L (9.4-12.3) fL Immature Gran % (Auto) 0.6 H (0.0-0.4) % Neut % (Auto) 67.7 (45-73) % Lymph % (Auto) 20.5 (20-40) % [place] % (Auto) 7.1 (2-11) % Eos % (Auto) 3.7 (0-4) % Baso % (Auto) 0.4 (0-2) % Lymph # (Auto) 2.1 (1.2-4.9) X10*3/uL [place] # (Auto) 0.7 (0.1-1.2) X10*3/uL Eos # (Auto) 0.4 (0.0-0.4) X10*3/uL Baso # (Auto) 0.0 (0.0-0.2) X10*3/uL Abs Immat Gran (auto) 0.06 H (0.00-0.03) X10*3/uL Absolute Neuts (auto) 6.9 (2.0-8.3) x10*3/uL Absolute Nucleated RBC 0.000 (0.0-0.012) X10*3/uL Nucleated RBC % (auto) 0.0 (0.0-0.2) /100WBC Sodium 141 (135-145) mmol/L Potassium 4.0 (3.3-5.1) mmol/L Chloride 107 (96-108) mmol/L Carbon Dioxide 24 (22-29) mmol/L Anion Gap 14 (12-20) BUN 13 (9-16) mg/dL Creatinine 0.76 (0.5-1.4) mg/dL Estim Creat Clear Calc 116.7 Estimated GFR > 60 Random Glucose 119 H (60-115) mg/dL Calcium 9.7 (8.4-10.2) mg/dL Total Bilirubin 0.2 (0.0-1.0) mg/dL AST 25 (5-31) U/L ALT 33 H (0-31) U/L Alkaline Phosphatase 167 H (39-117) U/L Total Protein 7.5 (6.5-8.0) g/dL Albumin 4.4 (3.5-5.0) g/dL Lipase 19 (8-78) U/L Urine Color Yellow Urine Appearance Clear Urine pH 5.5 (5.0-9.0) Ur Specific [place] 1.010 (1.005-1.025) Urine Protein Negative (Neg-Trace) mg/dL Urine Glucose (UA) Negative (Negative) mg/dL Urine Ketones Negative (Negative) mg/dL Urine Blood Negative (Negative) Urine Nitrite Negative (Negative) Ur Leukocyte Esterase Small (1+) H (Negative) Urine RBC 0-2 (0-2) /HPF Urine WBC 0-5 (0-5) /HPF Ur Squamous Epith Cells 0-2 (0-2) /HPF Urine Bacteria None Seen (None Seen) Hyaline Casts 0-2 (0-2) /LPF Urine Opiates Screen Not Detected (Not Detect) Ur Buprenorphine Scrn Not Detected (Not Detect) ng/mL Ur Oxycodone Screen Not Detected (Not Detect) ng/mL Urine Methadone Screen Not Detected (Not Detect) ng/mL Urine Fentanyl Screen Not Detected (Not Detect) Ur Barbiturates Screen Not Detected (Not Detect) Ur Phencyclidine Scrn Not Detected (Not Detect) Ur Amphetamines Screen Not Detected (Not Detect) U Benzodiazepines Scrn Not Detected (Not Detect) Urine Cocaine Screen Not Detected (Not Detect) U Marijuana (THC) Screen Not Detected (Not Detect) Ethyl Alcohol < 10 mg/dL Discharge Plan Discharge Clinical Impression: MDD (major depressive disorder), recurrent episode, severe, [place] intertrigo Patient Disposition: Home, Self-Care Instructions: Depression (ED), Skin Yeast Infection (ED) Additional Instructions: Apply the new cream in the groin area twice a day Continue rest of your medications Follow up with your therapist Prescriptions: New nystatin-triamcinolone 100,000-0.1 unit/g-% cream 1 appl topical BID Qty: 30 0RF No Action ferrous sulfate 325 mg (65 mg iron) Tablet 325 mg PO BID mirtazapine 15 mg tablet 15 mg PO BEDTIME Trelegy Ellipta 200-62.5-25 mcg blister with device 1 ea inhalation DAILY famotidine 20 mg tablet 10 mg PO TIDWM temazepam 15 mg Capsule 15 mg PO BEDTIME PRN (Reason: if awake at 2AM) 30 Days Qty: 30 0RF fluoxetine 40 mg capsule 80 mg PO DAILY atorvastatin 10 mg tablet 10 mg PO DAILY clozapine 100 mg tablet 100 mg PO BEDTIME amlodipine 5 mg tablet 5 mg PO DAILY pantoprazole 20 mg tablet,delayed release (DR/EC) 40 mg PO BID buspirone 10 mg tablet 10 mg PO BID montelukast 10 mg tablet 10 mg PO BEDTIME albuterol sulfate 90 mcg/actuation HFA aerosol inhaler 2 puff inhalation Q6H PRN (Reason: Wheezing) fluphenazine HCl 5 mg tablet 15 mg PO BID prazosin 2 mg capsule 4 mg PO BEDTIME metformin 500 mg tablet 500 mg PO BID nystatin 100,000 unit/gram powder 1 appl topical BID Qty: 60 0RF nicotine 21 mg/24 hr patch 24 hour 1 patch topical DAILY PRN (Reason: Nicotine Cravings) Interventions: ED Discharge Assessment Last Done: 12/26/24 22:44 Discharge Date/Time: 12/26/24 22:49 Print Language: Israeli
--- NOTE | 2024-12-26 22:25 | MHC.CARE ---
ED provider recants the CARE team consult and Pt will discharge.
[2024-12-26] MEDS: Nystatin/Triamcinolone Cream 15 GM TUBE 1 APPL TOPICAL (22:40)
[2024-12-26 22:44] VITALS: BP 138/82; PULSE 80; RESP 18; TEMP 37; O2SAT 97
== END 2024-12-26 22:49 | disposition home or self-care (01) ==
PROVIDERS: Emergency Provider Internal Medicine; PCP Nurse Practitioner Family
DX: F32.9 Major depressive disorder, single episode, unspecified (principal); L30.4 Erythema intertrigo; Z79.899 Other long term (current) drug therapy; Z51.81 Encounter for therapeutic drug level monitoring
CPT/HCPCS: 36415; 80053; 80307; 81001; 83690; 85025; 87086; 99283

== ENCOUNTER 2024-12-28 22:27 | Emergency (ER) | payer MEDICARE, MEDICAID, SELFPAY ==
--- NOTE | 2024-12-28 | ECG_ITS ---
Test Reason : CHEST PAIN Blood Pressure : */* mmHG Vent. Rate : 116 BPM Atrial Rate : 116 BPM P-R Int : 158 ms QRS Dur : 84 ms QT Int : 340 ms P-R-T Axes : 58 57 53 degrees QTcB Int : 472 ms Sinus tachycardia Possible Left atrial enlargement Borderline ECG When compared with ECG of 27-Nov-2024 23:19, No significant change was found Referred By: Generic ED Physician Electronically Signed By: Fabricio Kay
--- NOTE | ~2024-12-28 | XR_ITS ---
CLINICAL HISTORY: pain 2 view chest x-ray Comparison: CR - XR CHEST 1V - 12/03/24 03:41 EST Findings: Heart size is normal. Pulmonary vasculature within normal limits. No consolidation or significant pleural effusion. Blunting of posterior costophrenic angle on the lateral view only may represent pleural thickening or small pleural effusion. No pneumothorax. No acute fracture. IMPRESSION: 1. Small pleural effusion not excluded. Otherwise no acute findings. This document has been electronically signed by: Ofelia Zaldivar MD on 12/29/2024 00:55:42
[2024-12-28 22:36] VITALS: BP 131/83; PULSE 120; RESP 20; TEMP 36.4; O2SAT 96; BMI 45.1
[2024-12-28 22:43] VITALS: BP 136/74; PULSE 123; O2SAT 98
[2024-12-29 00:04] LABS: MANUAL DIFF FLAG NO
[2024-12-29 00:09] LABS: Basophils Percent Auto 0.4 % (0-2); Eosinophils Absolute Auto 0.3 X10*3/uL (0.0-0.4); Eosinophils Percent Auto 3.6 % (0-4); Hematocrit 35.8 % (37.0-47.0); Hemoglobin 12.1 g/dl (12.0-16.0); Imm Gran Abs Auto 0.05 X10*3/uL (0.00-0.03); Imm Gran Pct Auto 0.6 % (0.0-0.4); Lymphocytes Absolute Auto 1.8 X10*3/uL (1.2-4.9); Lymphocytes Percent Auto 22.2 % (20-40); Mean Corpuscular HGB Conc 33.8 g/dl (31.0-35.0); Mean Corpuscular Hemoglobin 31.2 pg (27.0-33.0); Mean Corpuscular Volume 92.3 fL (80.0-98.0); Mean Platelet Volume 9.2 fL (9.4-12.3); Monocytes Absolute Auto 0.7 X10*3/uL (0.1-1.2); Monocytes Percent Auto 8.4 % (2-11); Neutrophils Absolute Auto 5.1 x10*3/uL (2.0-8.3); Neutrophils Percent Auto 64.8 % (45-73); Platelet Count 292 X10*3/uL (160-400); Red Blood Count 3.88 X10*6/uL (4.20-5.50); Red Cell Distribution Width 13.1 % (11.0-16.0); White Blood Count 7.9 X10*3/uL (4.8-10.8)
--- NOTE | 2024-12-29 00:13 | ED_ITS ---
HPI - General Adult General Chief complaint: Abdominal Pain Stated complaint: light headed dizy nausea Time Seen by Provider: 12/28/24 22:59 Source: patient, RN notes reviewed and old records reviewed Mode of arrival: EMS Limitations: no limitations History of Present Illness ED Provider: Hilda HPI narrative: 49-year-old female with past medical history significant for bipolar disorder use, GERD, PTSD, depression presents for evaluation of chest pain. Patient reports that she developed left-sided chest pain and lightheadedness around lunchtime today, several hours prior to arrival. She reports she has had constant chest pain which is a 6/10. Her pain radiates to the center of her chest. She denies any shortness of breath, leg swelling, fevers, chills, cough Her symptoms started while she was smoking a cigarette She denies any personal cardiac history Related Data Home Medications ?Medication ?Instructions ?Recorded ?Confirmed albuterol sulfate 90 mcg/actuation 2 puff inhalation Q6H PRN Wheezing 06/24/24 12/07/24 aerosol inhaler amlodipine 5 mg tablet 5 mg PO DAILY 06/24/24 12/07/24 atorvastatin 10 mg tablet 10 mg PO DAILY 06/24/24 12/07/24 buspirone 10 mg tablet 10 mg PO BID 06/24/24 12/07/24 clozapine 100 mg tablet 100 mg PO BEDTIME 06/24/24 12/07/24 fluoxetine 40 mg capsule 80 mg PO DAILY 06/24/24 12/07/24 fluphenazine HCl 5 mg tablet 15 mg PO BID 06/24/24 12/07/24 montelukast 10 mg tablet 10 mg PO BEDTIME 06/24/24 12/07/24 pantoprazole 20 mg tablet,delayed 40 mg PO BID 06/24/24 12/07/24 release prazosin 2 mg capsule 4 mg PO BEDTIME 06/24/24 12/07/24 metformin 500 mg tablet 500 mg PO BID 07/15/24 12/07/24 famotidine 20 mg tablet 10 mg PO TIDWM 10/01/24 12/07/24 ferrous sulfate 325 mg (65 mg 325 mg PO BID 10/01/24 12/07/24 iron) tablet fluticasone fur. 200 mcg-umeclid 1 ea inhalation DAILY 10/01/24 12/07/24 62.5 mcg-vilant 25 mcg inhalat.powder (Trelegy Ellipta) mirtazapine 15 mg tablet 15 mg PO BEDTIME 10/01/24 12/07/24 nicotine 21 mg/24 hr daily 1 patch topical DAILY PRN Nicotine 11/04/24 12/07/24 transdermal patch Cravings Previous Rx's ?Medication ?Instructions ?Recorded nystatin 100,000 unit/gram topical 1 appl topical BID #60 grams 09/25/24 powder temazepam 15 mg capsule 15 mg PO BEDTIME PRN if awake at 10/06/24 2AM 30 days #30 caps nystatin-triamcinolone 100,000 1 appl topical BID #30 grams 12/26/24 unit/g-0.1 % topical cream Allergies Allergy/AdvReac Type Severity Reaction Status Date / Time azithromycin [AZITHROMYCIN] Allergy Severe Rash Verified 12/28/24 22:40 Fish Containing Products Allergy Severe Anaphylaxis Verified 12/28/24 22:40 codeine [Codeine] Allergy Intermediate Rash Verified 12/28/24 22:40 Penicillins Allergy Intermediate Rash Verified 12/28/24 22:40 prednisone [Prednisone] Allergy Intermediate Rash Verified 12/28/24 22:40 Sulfa (Sulfonamide Allergy Intermediate Rash Verified 12/28/24 22:40 Antibiotics) [Sulfa (Sulfonamides)] ziprasidone [From Geodon] Allergy Intermediate dysuria, Verified 12/28/24 22:40 rash lithium Allergy Unknown Rash Verified 12/28/24 22:40 Review of Systems 2 Constitutional: Constitutional: Denies body ache(s), Denies chills and Denies fever(s) Eyes: Eyes: Denies blurry vision ENT: Denies vertigo Cardiovascular: Cardiovascular: Reports chest pain, Reports rapid heart rate, Reports lightheadedness and Denies dyspnea Respiratory: Respiratory: Denies cough and Denies dyspnea Gastrointestinal: Gastrointestinal: Denies abdominal pain, Denies nausea and Denies vomiting Musculoskeletal: Musculoskeletal: Denies back pain Integumentary/Breasts: Skin/Breast: Denies rash Neurologic: Denies vertigo PMFSH Past Medical History Medical History Asthma Suicidal ideation MDD (major depressive disorder), recurrent episode, severe Chest pain Acute anxiety COVID-19 Full body hives Major depression Dizziness Suicide attempt UTI (urinary tract infection) Acetaminophen overdose COVID History of attempted suicide History of non-suicidal self-harm Hypomagnesemia Suicide attempt Suicide attempt by acetaminophen overdose Acetaminophen overdose Depression Diabetes type 2, controlled Borderline personality disorder PTSD (post-traumatic stress disorder) Overdose GERD (gastroesophageal reflux disease) Mood disorder Hyperlipidemia Bronchitis Social History Social History Household Members: Other Household Members Other:: intermediate members Housing: Other Housing Other:: intermediate Do you presently have visiting nurse or other home services: No Unable to assess alcohol history related to: Unknown Alcohol intake: never Comment: sitter in room Patient Tobacco Use Status: Current everyday Tobacco user Tobacco use type: Cigarette Cigarette Packs Per Day: 1 Cigarettes Per Day: 20.0 Years Smoked: 10 e-Cigarette/Vaping Use: Never Used Second Hand Smoke Exposure: No Substance Use Type: Caffiene Advance Directives: No Advance Directives Information Provided: Yes service: No Current occupational status: unemployed and disabled Sexual orientation: Straight/Heterosexual Physical Exam ED Vital Signs: Vital Signs - 24 hr 12/28/24 22:36 Temperature 97.6 F Pulse Rate 120 H Respiratory Rate 20 Blood Pressure 131/83 Pulse Oximetry 96 Oxygen Delivery Method Room Air BMI result Body Mass Index 45.1 Const General: healthy appearing, comfortable, no acute distress, alert and awake Nutritional Appearance: well nourished Orientation/consciousness: patient oriented x3 HENMT Head: Yes normocephalic and Yes atraumatic Eyes Eyelids: Yes eyelids normal Conjunctivae: conjunctivae normal Sclerae: sclerae normal Corneas: corneas normal Pupils: Equal, round and reactive pupils present EOM: EOMs intact bilaterally Neck Neck: Yes full ROM Resp Effort & Inspection: normal respiratory effort, able to speak in complete sentences, no audible wheezes and not labored Auscultation: clear to auscultation bilaterally Cardio Rate: regular rate Rhythm: regular rhythm GI Inspection: No distended Palpation (GI): Soft to palpation, not firm, nontender, no guarding and not rigid Skin General skin exam: elasticity normal Neuro General: patient oriented x3 Cranial nerves: Yes Equal, round and reactive pupils present and Yes Bilaterally intact EOM present Cognition (Neuro): normal cognition Extrem Other: Moving all extremities well without any obvious deformities Medical Decision Making Medical Decision Making MDM Narrative: 49-year-old female presents for evaluation of chest pain that is left-sided and radiates to the center of her chest. Her chest pain has been present for several hours now as it started around lunchtime. Plan for cardiac workup including labs, EKG, chest x-ray and viral swabs. Differential Diagnosis Differential Diagnoses: The differential diagnosis associated with the presentation includes Chest pain Chest wall pain Bronchitis Pneumonia ACS less likely Anxiety Admission/Observation Consideration of admission/observation: Escalation of care including admission/observation considered Lab Data MDM Lab Attestation statement: I reviewed the patient's lab results. No Leukocytosis or significant anemia. Normal platelet count. 12/28/24 23:55 12/28/24 23:55 Labs: Lab Results 12/28/24 Range/Units 23:55 WBC 7.9 (4.8-10.8) X10*3/uL RBC 3.88 L (4.20-5.50) X10*6/uL Hgb 12.1 (12.0-16.0) g/dl Hct 35.8 L (37.0-47.0) % MCV 92.3 (80.0-98.0) fL MCH 31.2 (27.0-33.0) pg MCHC 33.8 (31.0-35.0) g/dl RDW 13.1 (11.0-16.0) % Plt Count 292 (160-400) X10*3/uL MPV 9.2 L (9.4-12.3) fL Immature Gran % (Auto) 0.6 H (0.0-0.4) % Neut % (Auto) 64.8 (45-73) % Lymph % (Auto) 22.2 (20-40) % [place] % (Auto) 8.4 (2-11) % Eos % (Auto) 3.6 (0-4) % Baso % (Auto) 0.4 (0-2) % Lymph # (Auto) 1.8 (1.2-4.9) X10*3/uL [place] # (Auto) 0.7 (0.1-1.2) X10*3/uL Eos # (Auto) 0.3 (0.0-0.4) X10*3/uL Baso # (Auto) 0.0 (0.0-0.2) X10*3/uL Abs Immat Gran (auto) 0.05 H (0.00-0.03) X10*3/uL Absolute Neuts (auto) 5.1 (2.0-8.3) x10*3/uL Absolute Nucleated RBC 0.000 (0.0-0.012) X10*3/uL Nucleated RBC % (auto) 0.0 (0.0-0.2) /100WBC D-Dimer High Sensitivty < 150 NG/ML Sodium 141 (135-145) mmol/L Potassium 3.5 (3.3-5.1) mmol/L Chloride 106 (96-108) mmol/L Carbon Dioxide 23 (22-29) mmol/L Anion Gap 16 (12-20) BUN 14 (9-16) mg/dL Creatinine 0.73 (0.5-1.4) mg/dL Estim Creat Clear Calc 122.1 Estimated GFR > 60 Random Glucose 217 H (60-115) mg/dL Calcium 9.2 (8.4-10.2) mg/dL Total Bilirubin 0.2 (0.0-1.0) mg/dL AST 35 H (5-31) U/L ALT 32 H (0-31) U/L Alkaline Phosphatase 160 H (39-117) U/L Troponin I High Sens < 2.7 (<3.5-17.0) ng/L B-Natriuretic Peptide < 10 (<100) pg/mL Total Protein 6.9 (6.5-8.0) g/dL Albumin 4.1 (3.5-5.0) g/dL Lipase 22 (8-78) U/L Influenza Type A (PCR) NEGATIVE (Negative) Influenza Type B (PCR) NEGATIVE (Negative) RSV RNA Qual (PCR) NEGATIVE (Negative) SARS-CoV-2 RNA (RT-PCR) NEGATIVE (Negative) Independent Interpretation I performed an independent interpretation of an: EKG (Sinus tachycardia with a rate of [address] segment changes) and Plain X-Ray Interpretation: No focal infiltrates Discharge Plan Discharge Clinical Impression: Chest pain Patient Disposition: Home, Self-Care Instructions: Chest Pain (ED) Additional Instructions: Your workup in the ER today was reassuring. This includes your blood work, EKG and chest x-ray. Use ibuprofen as needed for pain. Follow-up with your primary doctor, return for new or worsening symptoms Prescriptions: No Action ferrous sulfate 325 mg (65 mg iron) Tablet 325 mg PO BID mirtazapine 15 mg tablet 15 mg PO BEDTIME Trelegy Ellipta 200-62.5-25 mcg blister with device 1 ea inhalation DAILY famotidine 20 mg tablet 10 mg PO TIDWM temazepam 15 mg Capsule 15 mg PO BEDTIME PRN (Reason: if awake at 2AM) 30 Days Qty: 30 0RF fluoxetine 40 mg capsule 80 mg PO DAILY atorvastatin 10 mg tablet 10 mg PO DAILY clozapine 100 mg tablet 100 mg PO BEDTIME amlodipine 5 mg tablet 5 mg PO DAILY pantoprazole 20 mg tablet,delayed release (DR/EC) 40 mg PO BID buspirone 10 mg tablet 10 mg PO BID montelukast 10 mg tablet 10 mg PO BEDTIME albuterol sulfate 90 mcg/actuation HFA aerosol inhaler 2 puff inhalation Q6H PRN (Reason: Wheezing) fluphenazine HCl 5 mg tablet 15 mg PO BID prazosin 2 mg capsule 4 mg PO BEDTIME metformin 500 mg tablet 500 mg PO BID nystatin 100,000 unit/gram powder 1 appl topical BID Qty: 60 0RF nicotine 21 mg/24 hr patch 24 hour 1 patch topical DAILY PRN (Reason: Nicotine Cravings) nystatin-triamcinolone 100,000-0.1 unit/g-% cream 1 appl topical BID Qty: 30 0RF Print Language: Cymraes
[2024-12-29 00:16] LABS: D Dimer High Sensitivity < 150 NG/ML
[2024-12-29 00:21] LABS: Alanine Aminotransferase 32 U/L (0-31); Albumin Level 4.1 g/dL (3.5-5.0); Alkaline Phosphatase 160 U/L (39-117); Anion Gap 16 (12-20); Aspartate Amino Transferase 35 U/L (5-31); Bilirubin Total 0.2 mg/dL (0.0-1.0); Blood Urea Nitrogen 14 mg/dL (9-16); Calcium 9.2 mg/dL (8.4-10.2); Carbon Dioxide 23 mmol/L (22-29); Chloride 106 mmol/L (96-108); Creatinine Clr Calc Pharmacy 122.1; Estimated Glomerular Filt Rate > 60; Glucose Random 217 mg/dL (60-115); Lipase 22 U/L (8-78); Potassium 3.5 mmol/L (3.3-5.1); Sodium 141 mmol/L (135-145); Total Protein 6.9 g/dL (6.5-8.0)
[2024-12-29 00:25] LABS: B Type Natriuretic Peptide < 10 pg/mL (<100); Troponin-I High Sensitivity < 2.7 ng/L (<3.5-17.0)
[2024-12-29 00:41] LABS: Influenza A PCR NEGATIVE (Negative); Influenza B PCR NEGATIVE (Negative); Resp Syncy Virus RNA Qual PCR NEGATIVE (Negative); SARS COV2 PCR INHOUSE NEGATIVE (Negative)
[2024-12-29 01:13] VITALS: BP 131/83; PULSE 120; RESP 20; TEMP 36.4; O2SAT 96
--- NOTE | 2024-12-29 14:13 | MHC.CARE ---
Pt has been referred to [facility] for a 3 day follow up and has been placed on 7 day alert.
== END 2024-12-29 01:16 | disposition home or self-care (01) ==
PROVIDERS: Physician Assistant; Emergency Provider Emergency Medicine
DX: R07.9 Chest pain, unspecified (principal); Z03.818 Encounter for observation for suspected exposure to other biological agents ruled out; J45.909 Unspecified asthma, uncomplicated; E11.9 Type 2 diabetes mellitus without complications; E78.5 Hyperlipidemia, unspecified; F17.210 Nicotine dependence, cigarettes, uncomplicated; Z79.899 Other long term (current) drug therapy
CPT/HCPCS: 0241U; 71046; 80053; 83690; 83880; 84484; 85025; 85379; 93005; 99283; 99284

== ENCOUNTER → 2024-12-28 22:41 | Outpatient (BNV) | payer MEDICARE, MEDICAID, SELFPAY | PROVIDERS: Emergency Provider Emergency Medicine; Visit Provider Internal Medicine Cardiovascular Disease | DX: R00.0 Tachycardia, unspecified (principal) | CPT/HCPCS: 93010 ==

== ENCOUNTER → 2024-12-28 23:18 | Outpatient (BNV) | payer MEDICARE, MEDICAID, SELFPAY | PROVIDERS: Emergency Provider Emergency Medicine; Visit Provider Specialist | DX: R07.9 Chest pain, unspecified (principal) | CPT/HCPCS: 71046 ==

== ENCOUNTER 2024-12-29 03:01 | Emergency (ER) | payer MEDICARE, MEDICAID, SELFPAY ==
[2024-12-29 03:06] VITALS: BP 151/91; PULSE 118; RESP 17; TEMP 36.3; O2SAT 93; BMI 45.3
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
[2024-12-29 06:11] VITALS: BP 133/77; PULSE 110; RESP 14; TEMP 36.4; O2SAT 96
--- NOTE | 2024-12-29 06:34 | ED_ITS ---
HPI - Psych General Chief Complaint: Psychiatric Symptoms Stated Complaint: hearing voices and seeing father Time Seen by Provider: 12/29/24 06:34 Source: patient and RN notes reviewed Mode of arrival: ambulatory Limitations: no limitations History of Present Illness ED Provider: Lucita Redman PA-C HPI Narrative: This is a 49-year-old female, with a history of asthma, MDD, anxiety, bipolar disorder, borderline personality disorder, GERD, hyperlipidemia, who presents emergency department with sudden onset of auditory hallucinations telling her to light herself on fire to kill herself. Patient was seen here earlier today due to chest pain and was discharged home. Patient states that while she was waiting in the waiting room to be picked up to go back to her residential she started to hear these voices. Patient states that since she checked her back and she has not heard the voices. Patient states that she was feeling well. She has no suicidal or homicidal ideation. She states that she has taken her medications as prescribed. She is in no current pain. No chest pain, shortness of breath, abdominal pain, nausea, vomiting or diarrhea. No other complaints or concerns at this time. MD complaint: hallucinations Onset (ago): hour(s) Duration: intermittent History of same: Yes Relieving factors: none Exacerbating factors: none Associated psychiatric symptoms: suicidal ideation Associated symptoms: denies other symptoms Treatments prior to arrival: none Related Data Home Medications ?Medication ?Instructions ?Recorded ?Confirmed albuterol sulfate 90 mcg/actuation 2 puff inhalation Q6H PRN Wheezing 06/24/24 12/07/24 aerosol inhaler amlodipine 5 mg tablet 5 mg PO DAILY 06/24/24 12/07/24 atorvastatin 10 mg tablet 10 mg PO DAILY 06/24/24 12/07/24 buspirone 10 mg tablet 10 mg PO BID 06/24/24 12/07/24 clozapine 100 mg tablet 100 mg PO BEDTIME 06/24/24 12/07/24 fluoxetine 40 mg capsule 80 mg PO DAILY 06/24/24 12/07/24 fluphenazine HCl 5 mg tablet 15 mg PO BID 06/24/24 12/07/24 montelukast 10 mg tablet 10 mg PO BEDTIME 06/24/24 12/07/24 pantoprazole 20 mg tablet,delayed 40 mg PO BID 06/24/24 12/07/24 release prazosin 2 mg capsule 4 mg PO BEDTIME 06/24/24 12/07/24 metformin 500 mg tablet 500 mg PO BID 07/15/24 12/07/24 famotidine 20 mg tablet 10 mg PO TIDWM 10/01/24 12/07/24 ferrous sulfate 325 mg (65 mg 325 mg PO BID 10/01/24 12/07/24 iron) tablet fluticasone fur. 200 mcg-umeclid 1 ea inhalation DAILY 10/01/24 12/07/24 62.5 mcg-vilant 25 mcg inhalat.powder (Trelegy Ellipta) mirtazapine 15 mg tablet 15 mg PO BEDTIME 10/01/24 12/07/24 nicotine 21 mg/24 hr daily 1 patch topical DAILY PRN Nicotine 11/04/24 12/07/24 transdermal patch Cravings Previous Rx's ?Medication ?Instructions ?Recorded nystatin 100,000 unit/gram topical 1 appl topical BID #60 grams 09/25/24 powder temazepam 15 mg capsule 15 mg PO BEDTIME PRN if awake at 10/06/24 2AM 30 days #30 caps nystatin-triamcinolone 100,000 1 appl topical BID #30 grams 12/26/24 unit/g-0.1 % topical cream Allergies Allergy/AdvReac Type Severity Reaction Status Date / Time azithromycin [AZITHROMYCIN] Allergy Severe Rash Verified 12/29/24 03:07 Fish Containing Products Allergy Severe Anaphylaxis Verified 12/29/24 03:07 codeine [Codeine] Allergy Intermediate Rash Verified 12/29/24 03:07 Penicillins Allergy Intermediate Rash Verified 12/29/24 03:07 prednisone [Prednisone] Allergy Intermediate Rash Verified 12/29/24 03:07 Sulfa (Sulfonamide Allergy Intermediate Rash Verified 12/29/24 03:07 Antibiotics) [Sulfa (Sulfonamides)] ziprasidone [From Geodon] Allergy Intermediate dysuria, Verified 12/29/24 03:07 rash lithium Allergy Unknown Rash Verified 12/29/24 03:07 Review of Systems Review of Systems: Yes all other systems are reviewed and are negative Constitutional: Constitutional: Reports as per [facility] Past Medical History Attestation statement: The following information was validated with the patient. Medical History Asthma Suicidal ideation MDD (major depressive disorder), recurrent episode, severe Chest pain Acute anxiety COVID-19 Full body hives Major depression Dizziness Suicide attempt UTI (urinary tract infection) Acetaminophen overdose COVID History of attempted suicide History of non-suicidal self-harm Hypomagnesemia Suicide attempt Suicide attempt by acetaminophen overdose Acetaminophen overdose Depression Diabetes type 2, controlled Borderline personality disorder PTSD (post-traumatic stress disorder) Overdose GERD (gastroesophageal reflux disease) Mood disorder Hyperlipidemia Bronchitis Social History Social History Household Members: Other Household Members Other:: residential members Housing: Other Housing Other:: residential Do you presently have visiting nurse or other home services: No Unable to assess alcohol history related to: Unknown Alcohol intake: never Comment: sitter in room Patient Tobacco Use Status: Current everyday Tobacco user Tobacco use type: Cigarette Cigarette Packs Per Day: 1 Cigarettes Per Day: 20.0 Years Smoked: 10 Smoked in Last 30 Days: Yes e-Cigarette/Vaping Use: Never Used Second Hand Smoke Exposure: No Use of substances other than those prescribed or required for medical reasons: No Substance Use Type: Caffiene Advance Directives: No Advance Directives Information Provided: Yes Do you have a plan to hurt others: No Plan service: No Current occupational status: unemployed and disabled Sexual orientation: Straight/Heterosexual Physical Exam Vital Signs: Vital Signs: Last Vital Signs Temp 97.6 F 12/29/24 06:11 Pulse 110 H 12/29/24 06:11 Resp 14 12/29/24 06:11 BP 133/77 12/29/24 06:11 Pulse Ox 96 12/29/24 06:11 O2 Del Method Room Air 12/29/24 06:11 BMI result Body Mass Index 45.3 Const: General: cooperative, comfortable and no acute distress Orientation/consciousness: patient oriented x3 Limitations: no limitations HEENT: Head: Yes normal to inspection, Yes normocephalic and Yes atraumatic Ears: hearing grossly normal bilaterally General nose exam: Normal external nose present Face and sinus: Yes normal facial exam Mouth: Normal oral and palatal mucosa present, oropharynx normal and moist mucous membranes Throat: Yes posterior oropharynx normal Eyes: General: appearance normal, both eyes and all related structures Eyelids: Yes eyelids normal Conjunctivae: conjunctivae normal Sclerae: sclerae normal Pupils: Equal, round and reactive pupils present EOM: EOMs intact bilaterally Neck: Neck: Yes normal visual inspection, Yes full ROM and Yes no lymphade nopathy Lymphatic: no lymphadenopathy noted Chest: Chest palpation & inspection: normal inspection of the chest Resp: Effort & Inspection: normal respiratory effort and able to speak in complete sentences Auscultation: clear to auscultation bilaterally, no crackles, no rales, no rhonchi and no wheezes Cardio: Rate: regular rate Rhythm: regular rhythm Heart sounds: S1 normal heart sound present and S2 normal heart sound present GI: Other: Abdomen is soft, nontender, nondistended Inspection: Yes normal to inspection Skin: General skin exam: no rashes or lesions noted Trauma: no lacerations or abrasions Wounds: no wounds Neuro: General: patient oriented x3 and moves all extremities Cranial nerves: Yes Equal, round and reactive pupils present Extrem: General: Yes normal to inspection Right upper extremity: normal to inspection Left upper extremity: normal to inspection Right lower extremity: normal to inspection Left lower extremity: normal to inspection Medical Decision Making Medical Decision Making MDM Narrative: This is a 49-year-old female who presents emergency department for evaluation of auditory hallucinations which started this morning. On arrival, patient mildly tachycardic at 1:18 a.m., she has no chest pain or shortness of breath. Upon my evaluation, regular rate and rhythm. No tachycardia appreciated. Patient had acute onset of auditory hallucinations telling her to harm herself. She states that these have resolved. No homicidal or suicidal ideation. Patient was seen here earlier for chest pain and was medically cleared and discharged home. No need to repeat labs as this was just performed several hours ago. Will await care team consultation for evaluation. Plan: Care team consult patient is seen by the care team. Feel comfortable with discharge. Currently in stable condition. Hallucination is chronic. Patient is currently not suicidal not homicidal wants to go home. Well known to department. Patient is in stable condition will discharge Differential Diagnosis Differential Diagnoses: The differential diagnosis associated with the presentation includes Auditory hallucinations, bipolar disorder, depression, anxiety Discharge Plan Discharge Clinical Impression: Hallucinations Patient Disposition: Home, Self-Care Instructions: Hallucinations (ED) Additional Instructions: follow-up as per care team Prescriptions: No Action ferrous sulfate 325 mg (65 mg iron) Tablet 325 mg PO BID mirtazapine 15 mg tablet 15 mg PO BEDTIME Trelegy Ellipta 200-62.5-25 mcg blister with device 1 ea inhalation DAILY famotidine 20 mg tablet 10 mg PO TIDWM temazepam 15 mg Capsule 15 mg PO BEDTIME PRN (Reason: if awake at 2AM) 30 Days Qty: 30 0RF fluoxetine 40 mg capsule 80 mg PO DAILY atorvastatin 10 mg tablet 10 mg PO DAILY clozapine 100 mg tablet 100 mg PO BEDTIME amlodipine 5 mg tablet 5 mg PO DAILY pantoprazole 20 mg tablet,delayed release (DR/EC) 40 mg PO BID buspirone 10 mg tablet 10 mg PO BID montelukast 10 mg tablet 10 mg PO BEDTIME albuterol sulfate 90 mcg/actuation HFA aerosol inhaler 2 puff inhalation Q6H PRN (Reason: Wheezing) fluphenazine HCl 5 mg tablet 15 mg PO BID prazosin 2 mg capsule 4 mg PO BEDTIME metformin 500 mg tablet 500 mg PO BID nystatin 100,000 unit/gram powder 1 appl topical BID Qty: 60 0RF nicotine 21 mg/24 hr patch 24 hour 1 patch topical DAILY PRN (Reason: Nicotine Cravings) nystatin-triamcinolone 100,000-0.1 unit/g-% cream 1 appl topical BID Qty: 30 0RF Referrals: Physician,Unknown J [Primary Care Provider] - 01/01/25 Interventions: [place]-Suicide Risk Severity Scale Last Done: 12/29/24 03:23 Print Language: Rwandan
[2024-12-29 08:57] VITALS: BP 133/77; PULSE 110; RESP 14; TEMP 36.4; O2SAT 96
== END 2024-12-29 08:58 | disposition home or self-care (01) ==
PROVIDERS: Emergency Provider Emergency Medicine Emergency Medical Services
DX: R45.851 Suicidal ideations (principal); R44.0 Auditory hallucinations; R07.89 Other chest pain; F17.210 Nicotine dependence, cigarettes, uncomplicated; Z79.899 Other long term (current) drug therapy
CPT/HCPCS: 99284; 99285; S9485

== ENCOUNTER 2025-01-09 20:53 | Emergency (ER) | payer MEDICARE, MEDICAID, SELFPAY ==
[2025-01-09 21:02] VITALS: BP 136/80; BP 137/79; PULSE 100; PULSE 98; RESP 16; TEMP 36.9; O2SAT 96; O2SAT 98; BMI 30.7
[2025-01-09 21:20] LABS: Appearance Urine Clear; Color Urine Yellow; Glucose Urine UA Negative (Negative); Leukocyte Esterase Urine Negative (Negative); Nitrite Urine Negative (Negative); Specific Gravity - Urine <= 1.005 (1.005-1.025); UPreg QC Valid YES; Urine Blood Negative (Negative); Urine Ketones Negative (Negative); Urine Pregnancy NEGATIVE (NEGATIVE); Urine Protein Negative (Neg-Trace)
[2025-01-09 21:22] LABS: Bacteria Urine None Seen (None Seen); Hyaline Casts Urine 0-2 /LPF (0-2); RBC Urine 0-2 /HPF (0-2); Squamous Epithelial Cell Urine 0-2 /HPF (0-2); WBC Urine 0-5 /HPF (0-5)
[2025-01-09 22:09] LABS: Amphetamine Screen Urine Not Detected (Not Detect); Barbiturates, Urine Not Detected (Not Detect); Benzodiazepines Screen Urine Not Detected (Not Detect); Buprenorphine Scr Not Detected (Not Detect); Cannabinoid Screen Urine Not Detected (Not Detect); Cocaine Screen Urine Not Detected (Not Detect); Fentanyl, urine Not Detected (Not Detect); Methadone Screen, Urine Not Detected (Not Detect); Opiate Screen Urine Not Detected (Not Detect); Oxycodone Screen Urine Not Detected (Not Detect); Phencyclidine Screen Urine Not Detected (Not Detect)
--- NOTE | 2025-01-09 22:11 | ED.PSYCH ---
HPI - Psych General Chief Complaint: Psychiatric Symptoms Stated Complaint: HEARING VOICES PER EMS Time Seen by Provider: 01/09/25 21:02 Source: patient Mode of arrival: ambulatory Limitations: no limitations History of Present Illness ED Provider: Dr. Eileen Ryan HPI Narrative: Patient comes to the emergency room complaining of hearing voices. patient denies SI or HI. Patient states she did not hurt herself prior to arrival. Related Data Home Medications ?Medication ?Instructions ?Recorded ?Confirmed albuterol sulfate 90 mcg/actuation 2 puff inhalation Q6H PRN Wheezing 06/24/24 12/07/24 aerosol inhaler amlodipine 5 mg tablet 5 mg PO DAILY 06/24/24 12/07/24 atorvastatin 10 mg tablet 10 mg PO DAILY 06/24/24 12/07/24 buspirone 10 mg tablet 10 mg PO BID 06/24/24 12/07/24 clozapine 100 mg tablet 100 mg PO BEDTIME 06/24/24 12/07/24 fluoxetine 40 mg capsule 80 mg PO DAILY 06/24/24 12/07/24 fluphenazine HCl 5 mg tablet 15 mg PO BID 06/24/24 12/07/24 montelukast 10 mg tablet 10 mg PO BEDTIME 06/24/24 12/07/24 pantoprazole 20 mg tablet,delayed 40 mg PO BID 06/24/24 12/07/24 release prazosin 2 mg capsule 4 mg PO BEDTIME 06/24/24 12/07/24 metformin 500 mg tablet 500 mg PO BID 07/15/24 12/07/24 famotidine 20 mg tablet 10 mg PO TIDWM 10/01/24 12/07/24 ferrous sulfate 325 mg (65 mg 325 mg PO BID 10/01/24 12/07/24 iron) tablet fluticasone fur. 200 mcg-umeclid 1 ea inhalation DAILY 10/01/24 12/07/24 62.5 mcg-vilant 25 mcg inhalat.powder (Trelegy Ellipta) mirtazapine 15 mg tablet 15 mg PO BEDTIME 10/01/24 12/07/24 nicotine 21 mg/24 hr daily 1 patch topical DAILY PRN Nicotine 11/04/24 12/07/24 transdermal patch Cravings Previous Rx's ?Medication ?Instructions ?Recorded nystatin 100,000 unit/gram topical 1 appl topical BID #60 grams 09/25/24 powder temazepam 15 mg capsule 15 mg PO BEDTIME PRN if awake at 10/06/24 2AM 30 days #30 caps nystatin-triamcinolone 100,000 1 appl topical BID #30 grams 12/26/24 unit/g-0.1 % topical cream Allergies Allergy/AdvReac Type Severity Reaction Status Date / Time azithromycin [AZITHROMYCIN] Allergy Severe Rash Verified 01/09/25 21:05 Fish Containing Products Allergy Severe Anaphylaxis Verified 01/09/25 21:05 codeine [Codeine] Allergy Intermediate Rash Verified 01/09/25 21:05 Penicillins Allergy Intermediate Rash Verified 01/09/25 21:05 prednisone [Prednisone] Allergy Intermediate Rash Verified 01/09/25 21:05 Sulfa (Sulfonamide Allergy Intermediate Rash Verified 01/09/25 21:05 Antibiotics) [Sulfa (Sulfonamides)] ziprasidone [From Geodon] Allergy Intermediate dysuria, Verified 01/09/25 21:05 rash lithium Allergy Unknown Rash Verified 01/09/25 21:05 Review of Systems Review of Systems: Constitutional : No Weight loss, No Fever, No Chills, No Night Sweats, No Fatigue, No Malaise ENT/Mouth : No Hearing loss, No Ear Pain, No Nasal Congestion, No Sinus Pain, No Hoarseness, No sore throat, No Rhinorrhea, No Swallowing Difficulty Eyes: No Eye Pain, No Swelling, No Redness, No Foreign Body, No Discharge, No Vision Changes Cardiovascular : No Chest Pain, No SOB, No Dyspnea on Exertion, No Orthopnea, No Edema, No Palpitations Respiratory : No Cough, No Sputum, No Wheezing, No Smoke Exposure, No Dyspnea Gastrointestinal : No Nausea, No Vomiting, No Diarrhea, No Constipation, No abdominal Pain, No Hematochezia, No Melena Genitourinary : no irregular bleeding, No Dysuria, No Urinary Frequency, No Hematuria, No Urinary Incontinence, No Urgency, No Flank Pain, No Urinary Flow Changes, No Hesitancy Musculoskeletal : No joint pain, No Myalgias, No Joint Swelling Skin : No Skin Lesions, No rash Neuro : No Weakness, No Numbness, No Paresthesias, No Loss of Consciousness, No Dizziness, No Headache Psych : Complaining of auditory hallucinations, No Anxiety/Panic, No Depression, No SI/HI/AH/VH, No Social Issues, Heme/Lymph: No Bruising, No Bleeding,No Lymphadenopathy Endocrine : No Polyuria, No Polydipsia, No Temperature Intolerance [facility] Past Medical History Medical History Asthma Suicidal ideation MDD (major depressive disorder), recurrent episode, severe Chest pain Acute anxiety COVID-19 Full body hives Major depression Dizziness Suicide attempt UTI (urinary tract infection) Acetaminophen overdose COVID History of attempted suicide History of non-suicidal self-harm Hypomagnesemia Suicide attempt Suicide attempt by acetaminophen overdose Acetaminophen overdose Depression Diabetes type 2, controlled Borderline personality disorder PTSD (post-traumatic stress disorder) Overdose GERD (gastroesophageal reflux disease) Mood disorder Hyperlipidemia Bronchitis Social History Social History Household Members: Other Household Members Other:: shelter members Housing: Other Housing Other:: shelter Do you presently have visiting nurse or other home services: No Unable to assess alcohol history related to: Unknown Alcohol intake: never Comment: sitter in room Patient Tobacco Use Status: Current everyday Tobacco user Tobacco use type: Cigarette Cigarette Packs Per Day: 1 Cigarettes Per Day: 20.0 Years Smoked: 10 e-Cigarette/Vaping Use: Never Used Second Hand Smoke Exposure: No Substance Use Type: Caffiene Advance Directives: No Advance Directives Information Provided: No Do you have a plan to hurt others: No Plan service: No Current occupational status: unemployed and disabled Sexual orientation: Straight/Heterosexual Physical Exam Vital Signs: Vital Signs: Last Vital Signs Temp 98.4 F 01/09/25 21:02 Pulse 100 01/09/25 21:02 Resp 16 01/09/25 21:02 BP 137/79 01/09/25 21:02 Pulse Ox 96 01/09/25 21:02 O2 Del Method Room Air 01/09/25 21:02 BMI result Body Mass Index 30.7 Const: Other: Appearance: Alert. Oriented X3. No acute distress. Eyes: Pupils equal, round and reactive to light. ENT: Pharynx normal. Neck: Normal inspection. Neck supple. No lymph nodes noted. No crepitus CVS: Normal heart rate and rhythm. Pulses normal. Normal S1 and S2 Respiratory: No respiratory distress. Breath sounds normal. No Wheezing. No rales Abdomen: Soft and nontender. No rigidity. No distention. Skin: Skin warm and dry. Normal skin color. Normal skin turgor. Extremities: No lower extremity edema. No Lacerations. No Rash Neuro: Oriented X 3. No motor deficit. No sensory deficit. Moving all extremities. No slurred speech. CN 2 through 12 grossly intact Psych: calm, cooperative, normal affect Course Course Course Narrative: of patient's labs pending care team consult pending physician observation started at 22:13 Medical Decision Making Differential Diagnosis Differential Diagnoses: The differential diagnosis associated with the presentation includes ( anxiety, depression, schizophrenia) Admission/Observation Consideration of admission/observation: Escalation of care including admission/observation considered ( patient waiting to be seen by the care team) Lab Data Labs: Lab Results 01/09/25 Range/Units 21:11 Urine Color Yellow Urine Appearance Clear Urine pH 6.0 (5.0-9.0) Ur Specific [place] <= 1.005 (1.005-1.025) Urine Protein Negative (Neg-Trace) mg/dL Urine Glucose (UA) Negative (Negative) mg/dL Urine Ketones Negative (Negative) mg/dL Urine Blood Negative (Negative) Urine Nitrite Negative (Negative) Ur Leukocyte Esterase Negative (Negative) Urine RBC 0-2 (0-2) /HPF Urine WBC 0-5 (0-5) /HPF Ur Squamous Epith Cells 0-2 (0-2) /HPF Urine Bacteria None Seen (None Seen) Hyaline Casts 0-2 (0-2) /LPF Urine Test NEGATIVE (NEGATIVE) Urine Opiates Screen Not Detected (Not Detect) Ur Buprenorphine Scrn Not Detected (Not Detect) ng/mL Ur Oxycodone Screen Not Detected (Not Detect) ng/mL Urine Methadone Screen Not Detected (Not Detect) ng/mL Urine Fentanyl Screen Not Detected (Not Detect) Ur Barbiturates Screen Not Detected (Not Detect) Ur Phencyclidine Scrn Not Detected (Not Detect) Ur Amphetamines Screen Not Detected (Not Detect) U Benzodiazepines Scrn Not Detected (Not Detect) Urine Cocaine Screen Not Detected (Not Detect) U Marijuana (THC) Screen Not Detected (Not Detect) Critical Care Time Critical Care Time Critical Care Time: Yes Total Critical Care Time: 35 Attestation: I have personally provided critical care time. Time includes review of lab data, radiology results, discussion with consultants, and monitoring for potential decompensation. Intervention performed as documented. Discharge Plan Discharge Clinical Impression: Auditory hallucinations Patient Disposition: Still a Patient Prescriptions: No Action ferrous sulfate 325 mg (65 mg iron) Tablet 325 mg PO BID mirtazapine 15 mg tablet 15 mg PO BEDTIME Trelegy Ellipta 200-62.5-25 mcg blister with device 1 ea inhalation DAILY famotidine 20 mg tablet 10 mg PO TIDWM temazepam 15 mg Capsule 15 mg PO BEDTIME PRN (Reason: if awake at 2AM) 30 Days Qty: 30 0RF fluoxetine 40 mg capsule 80 mg PO DAILY atorvastatin 10 mg tablet 10 mg PO DAILY clozapine 100 mg tablet 100 mg PO BEDTIME amlodipine 5 mg tablet 5 mg PO DAILY pantoprazole 20 mg tablet,delayed release (DR/EC) 40 mg PO BID buspirone 10 mg tablet 10 mg PO BID montelukast 10 mg tablet 10 mg PO BEDTIME albuterol sulfate 90 mcg/actuation HFA aerosol inhaler 2 puff inhalation Q6H PRN (Reason: Wheezing) fluphenazine HCl 5 mg tablet 15 mg PO BID prazosin 2 mg capsule 4 mg PO BEDTIME metformin 500 mg tablet 500 mg PO BID nystatin 100,000 unit/gram powder 1 appl topical BID Qty: 60 0RF nicotine 21 mg/24 hr patch 24 hour 1 patch topical DAILY PRN (Reason: Nicotine Cravings) nystatin-triamcinolone 100,000-0.1 unit/g-% cream 1 appl topical BID Qty: 30 0RF Interventions: [place]-Suicide Risk Severity Scale Last Done: 01/09/25 22:12 Print Language: Bangladeshi
[2025-01-09 22:24] LABS: MANUAL DIFF FLAG NO
[2025-01-09 22:25] LABS: Basophils Percent Auto 0.4 % (0-2); Eosinophils Absolute Auto 0.2 X10*3/uL (0.0-0.4); Eosinophils Percent Auto 2.7 % (0-4); Hematocrit 37.1 % (37.0-47.0); Hemoglobin 12.7 g/dl (12.0-16.0); Imm Gran Abs Auto 0.04 X10*3/uL (0.00-0.03); Imm Gran Pct Auto 0.5 % (0.0-0.4); Lymphocytes Absolute Auto 1.8 X10*3/uL (1.2-4.9); Lymphocytes Percent Auto 21.1 % (20-40); Mean Corpuscular HGB Conc 34.2 g/dl (31.0-35.0); Mean Corpuscular Hemoglobin 31.2 pg (27.0-33.0); Mean Corpuscular Volume 91.2 fL (80.0-98.0); Monocytes Absolute Auto 0.8 X10*3/uL (0.1-1.2); Monocytes Percent Auto 9.2 % (2-11); Neutrophils Absolute Auto 5.5 x10*3/uL (2.0-8.3); Neutrophils Percent Auto 66.1 % (45-73); Platelet Count 288 X10*3/uL (160-400); Red Blood Count 4.07 X10*6/uL (4.20-5.50); Red Cell Distribution Width 12.8 % (11.0-16.0); White Blood Count 8.4 X10*3/uL (4.8-10.8)
[2025-01-09 22:38] LABS: Ethanol < 10 mg/dL
[2025-01-09 22:48] LABS: Alanine Aminotransferase 27 U/L (0-31); Albumin Level 4.3 g/dL (3.5-5.0); Alkaline Phosphatase 143 U/L (39-117); Anion Gap 14 (12-20); Aspartate Amino Transferase 25 U/L (5-31); Bilirubin Direct < 0.2 mg/dL (0.0-0.5); Bilirubin Total 0.2 mg/dL (0.0-1.0); Blood Urea Nitrogen 12 mg/dL (9-16); Calcium 9.1 mg/dL (8.4-10.2); Carbon Dioxide 22 mmol/L (22-29); Chloride 105 mmol/L (96-108); Creatinine Clr Calc Pharmacy 103.9; Estimated Glomerular Filt Rate > 60; Glucose Random 179 mg/dL (60-115); HCG Quantitative < 2 mIU/mL; Potassium 3.4 mmol/L (3.3-5.1); Sodium 138 mmol/L (135-145); Total Protein 6.9 g/dL (6.5-8.0)
--- NOTE | 2025-01-10 07:34 | PC.NURSE ---
Patient resting comfortably in bed no c/o pain or discomfort at this time.
[2025-01-10 08:46] VITALS: BP 161/82; PULSE 104; RESP 16; TEMP 36.3; O2SAT 96
== END 2025-01-10 08:53 | disposition home or self-care (01) ==
PROVIDERS: Emergency Provider Emergency Medicine; PCP Nurse Practitioner Family
DX: R44.0 Auditory hallucinations (principal); F31.9 Bipolar disorder, unspecified; F41.9 Anxiety disorder, unspecified; F43.12 Post-traumatic stress disorder, chronic; E11.9 Type 2 diabetes mellitus without complications; E78.5 Hyperlipidemia, unspecified; D64.9 Anemia, unspecified; K21.9 Gastro-esophageal reflux disease without esophagitis; F17.210 Nicotine dependence, cigarettes, uncomplicated; F12.90 Cannabis use, unspecified, uncomplicated; Z91.51 Personal history of suicidal behavior; Z91.52 Personal history of nonsuicidal self-harm; Z79.84 Long term (current) use of oral hypoglycemic drugs; Z79.899 Other long term (current) drug therapy
CPT/HCPCS: 36415; 80048; 80076; 80307; 81001; 81025; 84702; 85025; 99284; S9485

== ENCOUNTER 2025-01-14 15:12 | Outpatient (REF) | payer MEDICARE, MEDICAID, SELFPAY ==
[2025-01-14 15:27] LABS: MANUAL DIFF FLAG NO
[2025-01-14 16:11] LABS: Basophils Percent Auto 0.4 % (0-2); Eosinophils Absolute Auto 0.3 X10*3/uL (0.0-0.4); Eosinophils Percent Auto 3.4 % (0-4); Hematocrit 37.3 % (37.0-47.0); Hemoglobin 12.8 g/dl (12.0-16.0); Imm Gran Abs Auto 0.05 X10*3/uL (0.00-0.03); Imm Gran Pct Auto 0.6 % (0.0-0.4); Lymphocytes Absolute Auto 1.4 X10*3/uL (1.2-4.9); Lymphocytes Percent Auto 16.9 % (20-40); Mean Corpuscular HGB Conc 34.3 g/dl (31.0-35.0); Mean Corpuscular Hemoglobin 31.2 pg (27.0-33.0); Mean Platelet Volume 9.4 fL (9.4-12.3); Monocytes Absolute Auto 0.6 X10*3/uL (0.1-1.2); Monocytes Percent Auto 7.4 % (2-11); Neutrophils Absolute Auto 5.9 x10*3/uL (2.0-8.3); Neutrophils Percent Auto 71.3 % (45-73); Platelet Count 314 X10*3/uL (160-400); Red Cell Distribution Width 12.6 % (11.0-16.0); White Blood Count 8.3 X10*3/uL (4.8-10.8)
--- OUTSIDE RECORDS SUMMARY | 2025-01-14 17:38 | XMS_ITS | Encounter Summary ---
Author Organization [facility] Address [address] [place] [address] Care Team Providers Care Replenishment Analyst Name Role Phone Nikki Alcantar MD Primary Care Provider [phone] Michelle Norris MD Primary Care Provider Unavail [facility] Primary Care Provider [facility] Michelle Norris MD Primary Care Provider Unavail [facility] Rosetta Diamond MD Primary Care Provider + Encounter Details Date Type Department Care Team Description 12/22/2015 Hospital Medical Records [address] [place] [id number] [place] Social History Tobacco Use Types [...] on filedocumented in this encounter Care Teams Replenishment Analyst Relationship Specialty Start Date End Date Nikki Alcantar MD [address] [place] [address] [id number] PCP - General 06/26/05 03/04/17 Michelle Norris MD [address] [place] [address] [id number] PCP - General Internal Medicine 03/05/17 03/16/21 [facility], Pcp [address] [place] [address] [id number] PCP - General Internal Medicine 03/17/21 05/04/21 Michelle Norris MD [address] [place] [address] [phone] PCP - General Internal Medicine 05/05/21 09/13/22 Rosetta Diamond MD [address] [place] [phone] PCP - General Internal Medicine 09/14/22 documented as of this encounter
--- OUTSIDE RECORDS SUMMARY | 2025-01-14 17:38 | XMS_ITS | Encounter Summary ---
Author Organization [facility] Address [address] [place] [address] Care Team Providers Care Motion Picture Operator Name Role Phone Nikki Alcantar MD Primary Care Provider [phone] Michelle Norris MD Primary Care Provider Unavail [facility] Primary Care Provider [facility] Michelle Norris MD Primary Care Provider Unavail [facility] Rosetta Diamond MD Primary Care Provider + Encounter Details Date Type Department Care Team Description 03/28/2016 Hospital Medical Records [address] [place] [address] Social History Tobacco Use Types Packs/Day Years [...] in this encounter Care Teams Motion Picture Operator Relationship Specialty Start Date End Date Nikki Alcantar MD [address] [place] [id number] PCP - General 06/26/05 03/04/17 Michelle Norris MD [address] [place] [address] [id number] PCP - General Internal Medicine 03/05/17 03/16/21 Counts Include [facility], Pcp [address] [place] [id number] PCP - General Internal Medicine 03/17/21 05/04/21 Michelle Norris MD [address] [place] [address] [id number] PCP - General Internal Medicine 05/05/21 09/13/22 Rosetta Diamond MD [address] [place] [address] PCP - General Internal Medicine 09/14/22 documented as of this encounter
--- OUTSIDE RECORDS SUMMARY | 2025-01-14 17:38 | XMS_ITS | Encounter Summary ---
Author Organization [facility] Address [address] [place] [address] Care Team Providers Care Assistant Scientist Name Role Phone Michelle Norris MD Primary Care Provider Unavail able [facility] Primary Care Provider [facility] Michelle Lagos MD Primary Care Provider Unavail able Rosetta Diamond MD Primary Care Provider + Reason for Visit * Reason Onset Date Comments VNA Call 05/19/2019 Encounter Details Date Type Department Care Team Description 05/19/2019 Telephone Adult Medicine [address] [address] Michelle Norris MD VNA Call Social History [...] EDT Aleciaek with [facility] She is from [facility] no a VNA The are an outreach program for this patient the Will send a med list and discharge summary * Telephone Encounter - Deanna Oglesby - 05/19/2019 1:19 PM EDT VNA CALL Which VNA office is calling? [employer] Full name of caller: [facility] The caller [...] on filedocumented in this encounter Care Teams Assistant Scientist Relationship Specialty Start Date End Date Michelle Norris MD PCP - General Internal Medicine 03/05/17 03/16/21 [facility] PCP - General Internal Medicine 03/17/21 05/04/21 Michelle Norris MD PCP - General Internal Medicine 05/05/21 09/13/22 Rosetta Diamond MD [address] [place] [address] PCP - General Internal Medicine 09/14/22 documented as of this encounter
--- OUTSIDE RECORDS SUMMARY | 2025-01-14 17:38 | XMS_ITS | Encounter Summary ---
Author Organization [facility] Address [address] [place] [address] Care Team Providers Care Wire Sawyer Name Role Phone Nikki Alcantar MD Primary Care Provider [phone] Michelle Norris MD Primary Care Provider Unavail [facility] Primary Care Provider [facility] Michelle Norris MD Primary Care Provider Unavail [facility] Rosetta Diamond MD Primary Care Provider + Encounter Details Date Type Department Care Team Description 02/22/2012 Hospital Medical Records [address] [place] [address] Marlen Grande Social History Tobacco Use Types [...] on filedocumented in this encounter Care Teams Wire Sawyer Relationship Specialty Start Date End Date Nikki Alcantar MD [address] [place] [address] PCP - General 06/26/05 03/04/17 Michelle Norris MD [address] [place] [address] PCP - General Internal Medicine 03/05/17 03/16/21 [facility], Pcp [address] [place] [address] PCP - General Internal Medicine 03/17/21 05/04/21 Michelle Norris MD [address] [place] [phone] PCP - General Internal Medicine 05/05/21 09/13/22 Rosetta Diamond MD [address] [place] [address] PCP - General Internal Medicine 09/14/22 documented as of this encounter
--- OUTSIDE RECORDS SUMMARY | 2025-01-14 17:38 | XMS_ITS | Encounter Summary ---
Author Organization [facility] Address [address] [place] [address] Care Team Providers Care Form Worker Name Role Phone Nikki Alcantar MD Primary Care Provider [phone] Michelle Norris MD Primary Care Provider Unavail [facility] Primary Care Provider [facility] Michelle Norris MD Primary Care Provider Unavail [facility] Rosetta Diamond MD Primary Care Provider + Encounter Details Date Type Department Care Team Description 03/27/2016 Hospital Medical Records [address] [place] [address] Rod Mccoy MD Social History Tobacco Use [...] on filedocumented in this encounter Care Teams Form Worker Relationship Specialty Start Date End Date Nikki Alcantar MD [address] [place] [address] PCP - General 06/26/05 03/04/17 Michelle Norris MD [address] [place] [address] PCP - General Internal Medicine 03/05/17 03/16/21 [facility], Pcp [address] [place] [address] PCP - General Internal Medicine 03/17/21 05/04/21 Michelle Norris MD [address] [place] [address] PCP - General Internal Medicine 05/05/21 09/13/22 Rosetta Diamond MD [address] [place] [address] PCP - General Internal Medicine 09/14/22 documented as of this encounter
--- OUTSIDE RECORDS SUMMARY | 2025-01-14 17:38 | XMS_ITS | Encounter Summary ---
Author Organization [facility] Address [address] [place] [address] Care Team Providers Care Oil Well Fishing Tool Technician Name Role Phone Nikki Alcantar MD Primary Care Provider [phone] Michelle Norris MD Primary Care Provider Unavail [facility] Primary Care Provider [facility] Michelle Norris MD Primary Care Provider Unavail [facility] Rosetta Diamond MD Primary Care Provider + Encounter Details Date Type Department Care Team Description 12/03/2008 Hospital Medical Records [address] [place] [address] Social History Tobacco Use Types Packs/Day Years [...] in this encounter Care Teams Oil Well Fishing Tool Technician Relationship Specialty Start Date End Date Nikki Alcantar MD [address] [place] [address] PCP - General 06/26/05 03/04/17 Michelle Norris MD [address] [place] [address] PCP - General Internal Medicine 03/05/17 03/16/21 [facility], Pcp [address] [place] [address] PCP - General Internal Medicine 03/17/21 05/04/21 Michelle Norris MD [address] [place] [address] PCP - General Internal Medicine 05/05/21 09/13/22 Rosetta Diamond MD [address] [place] [address] KARTIK CHEN [address] PCP - General Internal Medicine 09/14/22 documented as of this encounter
--- OUTSIDE RECORDS SUMMARY | 2025-01-14 17:38 | XMS_ITS | Encounter Summary ---
Author Organization [facility] Address [address] [place] [address] Care Team Providers Care Tunnel Drier Operator Name Role Phone Nikki Alcantar MD Primary Care Provider [phone] Michelle Norris MD Primary Care Provider Unavail [facility] Primary Care Provider [facility] Michelle Norris MD Primary Care Provider Unavail [facility] Rosetta Diamond MD Primary Care Provider + Encounter Details Date Type Department Care Team Description 12/26/2015 Hospital Medical Records [address] [place] [address] Angelique Moore Social History Tobacco Use Types [...] on filedocumented in this encounter Care Teams Tunnel Drier Operator Relationship Specialty Start Date End Date Nikki Alcantar MD [address] [place] [address] PCP - General 06/26/05 03/04/17 Michelle Norris MD [address] [place] [address] PCP - General Internal Medicine 03/05/17 03/16/21 [facility], Pcp [address] [place] [address] PCP - General Internal Medicine 03/17/21 05/04/21 Michelle Norris MD [address] [place] [address] [place] [address] PCP - General Internal Medicine 05/05/21 09/13/22 Rosetta Diamond MD [address] [place], [place] [phone] PCP - General Internal Medicine 09/14/22 documented as of this encounter
--- OUTSIDE RECORDS SUMMARY | 2025-01-14 17:38 | XMS_ITS | Encounter Summary ---
Author Organization [facility] Address [address] [place] [address] Care Team Providers Care Water Meter Mechanic Name Role Phone Michelle Norris MD Primary Care Provider Unavail [facility] Michelle Norris MD Primary Care Provider Unavail able Rosetta Diamond MD Primary Care Provider + Encounter Details Date Type Department Care Team Description 04/21/2019 Hospital Medical Records [address] [place] [address] Ron Frausto Social History Tobacco Use Types [...] on filedocumented in this encounter Care Teams Water Meter Mechanic Relationship Specialty Start Date End Date Michelle Norris MD PCP - General Internal Medicine 03/05/17 03/16/21 [facility] PCP - General Internal Medicine 03/17/21 05/04/21 Michelle Norris MD PCP - General Internal Medicine 05/05/21 09/13/22 Rosetta Diamond MD [address] [place] [address] PCP - General Internal Medicine 09/14/22 documented as of this encounter
--- OUTSIDE RECORDS SUMMARY | 2025-01-14 17:38 | XMS_ITS | Encounter Summary ---
Author Organization [facility] Address [address] [place] [address] Care Team Providers Care Data Typist Name Role Phone Nikki Alcantar MD Primary Care Provider [phone] Michelle Norris MD Primary Care Provider Unavail [facility] Primary Care Provider [facility] Michelle Norris MD Primary Care Provider Unavail [facility] Rosetta Diamond MD Primary Care Provider + Encounter Details Date Type Department Care Team Description 10/15/2008 Hospital Medical Records [address] [place] [address] Hank Enciso Social History Tobacco Use Types [...] on filedocumented in this encounter Care Teams Data Typist Relationship Specialty Start Date End Date Nikki Alcantar MD [address] [place] [address] PCP - General 06/26/05 03/04/17 Michelle Norris MD [address] [place] [address] PCP - General Internal Medicine 03/05/17 03/16/21 [facility], Pcp [address] [place] [address] PCP - General Internal Medicine 03/17/21 05/04/21 Michelle Norris MD [address] [place] [address] [place] [address] PCP - General Internal Medicine 05/05/21 09/13/22 Rosetta Diamond MD [address] [place], [place] [phone] PCP - General Internal Medicine 09/14/22 documented as of this encounter
--- OUTSIDE RECORDS SUMMARY | 2025-01-14 17:38 | XMS_ITS | Encounter Summary ---
Author Organization [facility] Address [address] [place] [address] Care Team Providers Care Industrial Recruiter Name Role Phone Nikki Alcantar MD Primary Care Provider [phone] Michelle Norris MD Primary Care Provider Unavail able [facility] Primary Care Provider [facility] Michelle Norris MD Primary Care Provider Unavail [facility] Rosetta Diamond MD Primary Care Provider + Encounter Details Date Type Department Care Team Description 01/20/2009 Hospital Medical Records [address] [place] [address] Bandar Ryan [address] [facility] [address] [place] [address] Social History Tobacco Use Types Packs/Day Years [...] on filedocumented in this encounter Care Teams Industrial Recruiter Relationship Specialty Start Date End Date Nikki Alcantar MD [address] [place] [address] PCP - General 06/26/05 03/04/17 Michelle Norris MD [address] [place] [address] PCP - General Internal Medicine 03/05/17 03/16/21 [facility], Pcp [address] [place] [address] PCP - General Internal Medicine 03/17/21 05/04/21 Michelle Norris MD [address] [place] [address] PCP - General Internal Medicine 05/05/21 09/13/22 Rosetta Diamond MD [address] [place] [address] PCP - General Internal Medicine 09/14/22 documented as of this encounter
--- OUTSIDE RECORDS SUMMARY | 2025-01-14 17:38 | XMS_ITS | Encounter Summary ---
Author Organization [facility] Address [address] [place] [address] Care Team Providers Care Blade Grinder Name Role Phone Michelle Norris MD Primary Care Provider Unavail able [facility] Primary Care Provider [facility] Michelle Lagos MD Primary Care Provider Unavail able Rosetta Diamond MD Primary Care Provider + Reason for Visit * Reason Onset Date Comments TEST RESULTS 06/12/2019 result notes Encounter Details Date Type Department Care Team Description 06/12/2019 Telephone Adult Medicine [address] [address] Lona Rowell PA-C TEST RESULTS (result notes) [...] on filedocumented in this encounter Care Teams Blade Grinder Relationship Specialty Start Date End Date Michelle Norris MD PCP - General Internal Medicine 03/05/17 03/16/21 [facility], Pcp PCP - General Internal Medicine 03/17/21 05/04/21 Michelle Norris MD PCP - General Internal Medicine 05/05/21 09/13/22 Rosetta Diamond MD [address] [place] [address] PCP - General Internal Medicine 09/14/22 documented as of this encounter
--- OUTSIDE RECORDS SUMMARY | 2025-01-14 17:38 | XMS_ITS | Encounter Summary ---
Author Organization [facility] Address [address] [place] [address] Care Team Providers Care Licensing And Registration Director Name Role Phone Michelle Norris MD Primary Care Provider Unavail able [facility] Michelle Lagos MD Primary Care Provider Unavail able Rosetta Diamond MD Primary Care Provider + Reason for Visit * Reason Onset Date Comments refill request 06/11/2019 Encounter Details Date Type Department Care Team Description 06/11/2019 Refill Adult Medicine [address] [address] Michelle Norris MD refill request Social History [...] / Plan: [place] / Product Type: MEDICARE [id number] documented in this encounter Plan of Treatment Not on file documented as of this encounter Visit Diagnoses Not on filedocumented in this encounter Care Teams Licensing And Registration Director Relationship Specialty Start Date End Date Michelle Norris MD PCP - General Internal Medicine 03/05/17 03/16/21 [facility] PCP - General Internal Medicine 03/17/21 05/04/21 Michelle Norris MD PCP - General Internal Medicine 05/05/21 09/13/22 Rosetta Diamond MD [address] [place] [address] PCP - General Internal Medicine 09/14/22 documented as of this encounter
--- OUTSIDE RECORDS SUMMARY | 2025-01-14 17:38 | XMS_ITS | Encounter Summary ---
Author Organization [facility] Address [address] [place] [address] Care Team Providers Care Foreign Student Adviser Name Role Phone Nikki Alcantar MD Primary Care Provider [phone] Michelle Norris MD Primary Care Provider Unavail [facility] Primary Care Provider [facility] Michelle Norris MD Primary Care Provider Unavail [facility] Rosetta Diamond MD Primary Care Provider + Encounter Details Date Type Department Care Team Description 03/13/2016 Hospital Medical Records [address] [place] [address] Carlos Landrum Social History Tobacco Use Types [...] on filedocumented in this encounter Care Teams Foreign Student Adviser Relationship Specialty Start Date End Date Nikki Alcantar MD [address] [place] [address] PCP - General 06/26/05 03/04/17 Michelle Norris MD [address] [place] [address] PCP - General Internal Medicine 03/05/17 03/16/21 [facility], Pcp [address] [place] [address] PCP - General Internal Medicine 03/17/21 05/04/21 Michelle Norris MD [address] [place] [address] PCP - General Internal Medicine 05/05/21 09/13/22 Rosetta Diamond MD [address] [place] [address] PCP - General Internal Medicine 09/14/22 documented as of this encounter
--- OUTSIDE RECORDS SUMMARY | 2025-01-14 17:38 | XMS_ITS | Encounter Summary ---
Author Organization [facility] Address [address] [place] [address] Care Team Providers Care Pile Driver Operator Helper Name Role Phone Michelle Norris MD Primary Care Provider Unavail able [facility], Pcp Primary Care Provider Unavailabl e Michelle Norris MD Primary Care Provider Unavail able Rosetta Diamond MD Primary Care Provider + Encounter Details Date Type Department Care Team Description 04/21/2019 Hospital Medical Records [address] [place] [address] Radha Sifuentes Social History Tobacco Use Types Packs/Day Years [...] on filedocumented in this encounter Care Teams Pile Driver Operator Helper Relationship Specialty Start Date End Date Michelle Norris MD PCP - General Internal Medicine 03/05/17 03/16/21 [facility], Pcp PCP - General Internal Medicine 03/17/21 05/04/21 Michelle Norris MD PCP - General Internal Medicine 05/05/21 09/13/22 Rosetta Diamond MD [address] [place] [address] PCP - General Internal Medicine 09/14/22 documented as of this encounter
--- OUTSIDE RECORDS SUMMARY | 2025-01-14 17:38 | XMS_ITS | Encounter Summary ---
Author Organization [facility] Address [address] [place] [address] Care Team Providers Care Lock Tender Name Role Phone Nikki Alcantar MD Primary Care Provider [phone] Michelle Norris MD Primary Care Provider Unavail [facility] Primary Care Provider [facility] Michelle Norris MD Primary Care Provider Unavail [facility] Rosetta Diamond MD Primary Care Provider + Encounter Details Date Type Department Care Team Description 04/21/2008 Hospital Medical Records [address] [place] [address] Bandar Paul Social History Tobacco Use Types [...] on filedocumented in this encounter Care Teams Lock Tender Relationship Specialty Start Date End Date Nikki Alcantar MD [address] [place] [address] PCP - General 06/26/05 03/04/17 Michelle Norris MD [address] [place] [address] PCP - General Internal Medicine 03/05/17 03/16/21 [facility], Pcp [address] [place] [address] PCP - General Internal Medicine 03/17/21 05/04/21 Michelle Norris MD [address] [place], [place] [phone] PCP - General Internal Medicine 05/05/21 09/13/22 Rosetta Diamond MD [address] [place] [address] PCP - General Internal Medicine 09/14/22 documented as of this encounter
--- OUTSIDE RECORDS SUMMARY | 2025-01-14 17:38 | XMS_ITS | Encounter Summary ---
Author Organization [facility] Address [address] [place] [address] Care Team Providers Care Cycle Specialist Name Role Phone Nikki Alcantar MD Primary Care Provider [phone] Michelle Norris MD Primary Care Provider Unavail [facility] Primary Care Provider [facility] Michelle Norris MD Primary Care Provider Unavail [facility] Rosetta Diamond MD Primary Care Provider + Encounter Details Date Type Department Care Team Description 11/30/2015 Hospital Medical Records [address] [place] [address] Social History Tobacco Use Types Packs/Day Years [...] on filedocumented in this encounter Care Teams Cycle Specialist Relationship Specialty Start Date End Date Nikki Alcantar MD [address] [place] [address] PCP - General 06/26/05 03/04/17 Michelle Norris MD [address] [place] [address] PCP - General Internal Medicine 03/05/17 03/16/21 [facility], Pcp [address] [place] [address] PCP - General Internal Medicine 03/17/21 05/04/21 Michelle Norris MD [address] [place] [address] PCP - General Internal Medicine 05/05/21 09/13/22 Rosetta Diamond MD [address] [place] [address] KARTIK CHEN [address] PCP - General Internal Medicine 09/14/22 documented as of this encounter
--- OUTSIDE RECORDS SUMMARY | 2025-01-14 17:39 | XMS_ITS | Encounter Summary ---
Author Organization [facility] Address [address] [place] [address] Care Team Providers Care Basin Finish Operator Tig Welder Name Role Phone Nikki Alcantar MD Primary Care Provider [phone] Michelle Norris MD Primary Care Provider Unavail able [facility] Primary Care Provider [facility] Michelle Norris MD Primary Care Provider Unavail able Rosetta Diamond MD Primary Care Provider + Reason for Visit * Reason Onset Date Comments APPOINTMENT 10/26/2011 missed appointme nt w/Dr Alcantar Encounter Details Date Type Department Care Team Description 10/26/2011 Telephone Adult Medicine [address] [phone] Nikki Alcantar MD [address] [place] [address] [phone] APPOINTMENT (missed appointment w/Dr Alcantar) Social History [...] filedocumented in this encounter Care Teams Basin Finish Operator Tig Welder Relationship Specialty Start Date End Date Nikki Alcantar MD [address] [place] [address] PCP - General 06/26/05 03/04/17 Michelle Norris MD [address] [place] [address] PCP - General Internal Medicine 03/05/17 03/16/21 [place] [address] PCP - General Internal Medicine 03/17/21 05/04/21 Michelle Norris MD [address] [place] [address] PCP - General Internal Medicine 05/05/21 09/13/22 Rosetta Diamond MD [address] [place] [address] PCP - General Internal Medicine 09/14/22 documented as of this encounter
--- OUTSIDE RECORDS SUMMARY | 2025-01-14 17:39 | XMS_ITS | Encounter Summary ---
Author Organization [facility] Address [address] [place] [address] Care Team Providers Care New Patient Escort Name Role Phone Michelle Norris MD Primary Care Provider Unavail able [facility] Care Provider [facility] Michelle Lagos MD Primary Care Provider Unavail able Rosetta Diamond MD Primary Care Provider + Reason for Visit * Reason Onset Date Comments Orders Call 01/25/2018 Encounter Details Date Type Department Care Team Description 01/25/2018 Telephone OBGYN - [place] [address] [place] [address] Ying Morton MD [address] [place] [address] Orders Call Social History Tobacco Use Types [...] has the patient had this problem? Pt???s INSIGHT LEADER provider: Ying Morton M.D. Last menstrual period (LMP) or EDC (due date): N/A documented in this encounter Plan of Treatment Not on file documented as of this encounter Visit Diagnoses Not on filedocumented in this encounter Care Teams New Patient Escort Relationship Specialty Start Date End Date Michelle Norris MD PCP - General Internal Medicine 03/05/17 03/16/21 [facility] PCP - General Internal Medicine 03/17/21 05/04/21 Michelle Norris MD PCP - General Internal Medicine 05/05/21 09/13/22 Rosetta Diamond MD [address] [place] [address] PCP - General Internal Medicine 09/14/22 documented as of this encounter
--- OUTSIDE RECORDS SUMMARY | 2025-01-14 17:39 | XMS_ITS | Encounter Summary ---
Author Organization [facility] Address [address] [place] [address] Care Team Providers Care Malt Liquors Sales Representative Name Role Phone Nikki Alcantar MD Primary Care Provider [phone] Michelle Norris MD Primary Care Provider Unavail [facility] Primary Care Provider [facility] Michelle Norris MD Primary Care Provider Unavail [facility] Rosetta Diamond MD Primary Care Provider + Encounter Details Date Type Department Care Team Description 02/10/2015 Hospital Medical Records [address] [place] [address] Social History Tobacco Use Types Packs/Day Years [...] on filedocumented in this encounter Care Teams Malt Liquors Sales Representative Relationship Specialty Start Date End Date Nikki Alcantar MD [address] [place] [address] PCP - General 06/26/05 03/04/17 Michelle Norris MD [address] [place] [address] PCP - General Internal Medicine 03/05/17 03/16/21 [facility], Pcp [address] [place] [address] 1937[address] PCP - General Internal Medicine 03/17/21 05/04/21 Michelle Norris MD [address] [place] [address] PCP - General Internal Medicine 05/05/21 09/13/22 Rosetta Diamond MD [address] [place] [address] KARTIK CHEN [address] PCP - General Internal Medicine 09/14/22 documented as of this encounter
--- OUTSIDE RECORDS SUMMARY | 2025-01-14 17:39 | XMS_ITS | Encounter Summary ---
Author Organization [facility] Address [address] [place] [address] Care Team Providers Care Public Works Director Name Role Phone Nikki Alcantar MD Primary Care Provider [phone] Michelle Norris MD Primary Care Provider Unavail [facility] Primary Care Provider [facility] Michelle Norris MD Primary Care Provider Unavail [facility] Rosetta Diamond MD Primary Care Provider + Encounter Details Date Type Department Care Team Description 11/23/2011 Hospital Medical Records [address] [place] [id number] Jose Echols MD Social History Tobacco Use [...] filedocumented in this encounter Care Teams Public Works Director Relationship Specialty Start Date End Date Nikki Alcantar MD [address] [place] [address] PCP - General 06/26/05 03/04/17 Michelle Norris MD [address] [place] [address] PCP - General Internal Medicine 03/05/17 03/16/21 [facility], Pcp [address] [place] [address] 47470 PCP - General Internal Medicine 03/17/21 05/04/21 Michelle Norris MD [address] [place] [address] 65902 PCP - General Internal Medicine 05/05/21 09/13/22 Rosetta Diamond MD [address] [place] [address] PCP - General Internal Medicine 09/14/22 documented as of this encounter
--- OUTSIDE RECORDS SUMMARY | 2025-01-14 17:39 | XMS_ITS | Encounter Summary ---
Author Organization [facility] Address [address] [place] [address] Care Team Providers Care Zipper Repairer Name Role Phone Michelle Norris MD Primary Care Provider Unavail able [facility] Primary Care Provider Michelle Abdi MD Primary Care Provider Unavail able Rosetta Diamond MD Primary Care Provider + Reason for Visit * Reason Onset Date Comments medication problems 10/01/2020 Encounter Details Date Type Department Care Team Description 10/01/2020 Telephone Adult Medicine [address] [address] Michelle Norris MD medication problems Social History [...] EST Who is calling? Didi from patients long-term Name of the medication Umeclidinium [place] (INCRUSE ELLIPTA) 62.5 MCG/INH AEROSOL POWDER,BREATH ACTIVATED [...] on filedocumented in this encounter Care Teams Zipper Repairer Relationship Specialty Start Date End Date Michelle Norris MD PCP - General Internal Medicine 03/05/17 03/16/21 [facility], Pcp PCP - General Internal Medicine 03/17/21 05/04/21 Michelle Norris MD PCP - General Internal Medicine 05/05/21 09/13/22 Rosetta Diamond MD [address] [place] [address] PCP - General Internal Medicine 09/14/22 documented as of this encounter
--- OUTSIDE RECORDS SUMMARY | 2025-01-14 17:39 | XMS_ITS | Encounter Summary ---
Author Organization [facility] Address [address] [place] [address] Care Team Providers Care Manager Combination Name Role Phone Nikki Alcantar MD Primary Care Provider [phone] Michelle Norris MD Primary Care Provider Unavail [facility] Primary Care Provider [facility] Michelle Norris MD Primary Care Provider Unavail [facility] Rosetta Diamond MD Primary Care Provider + Encounter Details Date Type Department Care Team Description 11/26/2007 Hospital Medical Records [address] [place] [address] Saúl Francisco Social History Tobacco Use Types [...] filedocumented in this encounter Care Teams Manager Combination Relationship Specialty Start Date End Date Nikki Alcantar MD [address] [place] [address] PCP - General 06/26/05 03/04/17 Michelle Norris MD [address] [place] [address] PCP - General Internal Medicine 03/05/17 03/16/21 [facility]cp [address] [place] [address] PCP - General Internal Medicine 03/17/21 05/04/21 Michelle Norris MD [address] [place] [address] PCP - General Internal Medicine 05/05/21 09/13/22 Rosetta Diamond MD [address] [place], [place] [phone] PCP - General Internal Medicine 09/14/22 documented as of this encounter
--- OUTSIDE RECORDS SUMMARY | 2025-01-14 17:39 | XMS_ITS | Encounter Summary ---
Author Organization [facility] Address [address] [place] [address] Care Team Providers Care Astrophysics Teacher Name Role Phone Michelle Norris MD Primary Care Provider Unavail able Rosetta Diamond MD Primary Care Provider + Encounter Details Date Type Department Care Team Description 06/09/2021 Business Doc Medical Records [address] [place] [address] Abstract, Provider Social History Tobacco Use Types [...] on filedocumented in this encounter Care Teams Astrophysics Teacher Relationship Specialty Start Date End Date Michelle Norris MD PCP - General Internal Medicine 05/05/21 09/13/22 Rosetta Diamond MD [address] [place] [address] PCP - General Internal Medicine 09/14/22 documented as of this encounter
--- OUTSIDE RECORDS SUMMARY | 2025-01-14 17:39 | XMS_ITS | Encounter Summary ---
Author Organization [facility] Address [address] [place] [address] Care Team Providers Care Coffee Sampler Name Role Phone Nikki Alcantar MD Primary Care Provider [phone] Michelle Norris MD Primary Care Provider Unavail [facility] Primary Care Provider [facility] Michelle Norris MD Primary Care Provider Unavail [facility] Rosetta Diamond MD Primary Care Provider + Encounter Details Date Type Department Care Team Description 09/28/2012 Night Triage Doc Medical Records [address] [place] [id number] Abstract, Provider Social History Tobacco Use Types [...] on filedocumented in this encounter Care Teams Coffee Sampler Relationship Specialty Start Date End Date Nikki Alcantar MD [address] [place] [address] PCP - General 06/26/05 03/04/17 Michelle Norris MD [address] [place] [address] 76179 PCP - General Internal Medicine 03/05/17 03/16/21 [facility], Pcp [address] [place] [address] PCP - General Internal Medicine 03/17/21 05/04/21 Michelle Norris MD [address] [place], [place] [phone] PCP - General Internal Medicine 05/05/21 09/13/22 Rosetta Diamond MD [address] [place] [address] PCP - General Internal Medicine 09/14/22 documented as of this encounter
--- OUTSIDE RECORDS SUMMARY | 2025-01-14 17:39 | XMS_ITS | Encounter Summary ---
Author Organization [facility] Address [address] [place] [address] Care Team Providers Care Physicist Solid State Name Role Phone Michelle Norris MD Primary Care Provider Unavail [facility] Michelle Norris MD Primary Care Provider Unavail able Rosetta Diamond MD Primary Care Provider + Encounter Details Date Type Department Care Team Description 10/15/2017 Hospital Medical Records [address] [place] [address] Marlen Grande Social History Tobacco Use Types [...] on filedocumented in this encounter Care Teams Physicist Solid State Relationship Specialty Start Date End Date Michelle Norris MD PCP - General Internal Medicine 03/05/17 03/16/21 [facility], Pcp PCP - General Internal Medicine 03/17/21 05/04/21 Michelle Norris MD PCP - General Internal Medicine 05/05/21 09/13/22 Rosetta Diamond MD [address] [place] [address] PCP - General Internal Medicine 09/14/22 documented as of this encounter
--- OUTSIDE RECORDS SUMMARY | 2025-01-14 17:39 | XMS_ITS | Encounter Summary ---
Author Organization [facility] Address [address] [place] [address] Care Team Providers Care Mechanical Expert Name Role Phone Michelle Norris MD Primary Care Provider Unavail [facility], Pcp [facility] Michelle Norris MD Primary Care Provider Unavail able Rosetta Diamond MD Primary Care Provider + Encounter Details Date Type Department Care Team Description 08/12/2018 Release of Information Medical Records [address] [place] [address] Abstract, Provider Social History Tobacco Use Types [...] filedocumented in this encounter Care Teams Mechanical Expert Relationship Specialty Start Date End Date Michelle Norris MD PCP - General Internal Medicine 03/05/17 03/16/21 [facility], Pcp PCP - General Internal Medicine 03/17/21 05/04/21 Michelle Norris MD PCP - General Internal Medicine 05/05/21 09/13/22 Rosetta Diamond MD [address] [place] [address] PCP - General Internal Medicine 09/14/22 documented as of this encounter
--- OUTSIDE RECORDS SUMMARY | 2025-01-14 17:39 | XMS_ITS | Encounter Summary ---
Author Organization [facility] Address [address] [place] [address] Care Team Providers Care Electric Distribution Engineer Name Role Phone Michelle Norris MD Primary Care Provider Unavail [facility], Pcp [facility] Michelle Norris MD Primary Care Provider Unavail able Rosetta Diamond MD Primary Care Provider + Encounter Details Date Type Department Care Team Description 03/10/2020 Hospital Medical Records [address] [place] [address] Marlen Grande Social History Tobacco Use Types [...] on filedocumented in this encounter Care Teams Electric Distribution Engineer Relationship Specialty Start Date End Date Michelle Norris MD PCP - General Internal Medicine 03/05/17 03/16/21 [facility], Pcp PCP - General Internal Medicine 03/17/21 05/04/21 Michelle Norris MD PCP - General Internal Medicine 05/05/21 09/13/22 Rosetta Diamond MD [address] [place] [address] PCP - General Internal Medicine 09/14/22 documented as of this encounter
--- OUTSIDE RECORDS SUMMARY | 2025-01-14 17:39 | XMS_ITS | Encounter Summary ---
Author Organization [facility] Address [address] [place] [address] Care Team Providers Care Magnetic Healer Name Role Phone Nikki Alcantar MD Primary Care Provider [phone] Michelle Norris MD Primary Care Provider Unavail [facility] Primary Care Provider [facility] Michelle Norris MD Primary Care Provider Unavail [facility] Rosetta Diamond MD Primary Care Provider + Encounter Details Date Type Department Care Team Description 10/19/2011 Hospital Medical Records [address] [place] [address] Marlen Grande Social History Tobacco Use Types [...] on filedocumented in this encounter Care Teams Magnetic Healer Relationship Specialty Start Date End Date Nikki Alcantar MD [address] [place] [address] PCP - General 06/26/05 03/04/17 Michelle Norris MD [address] [place] [address] PCP - General Internal Medicine 03/05/17 03/16/21 [facility], Pcp [address] [place] [address] PCP - General Internal Medicine 03/17/21 05/04/21 Michelle Norris MD [address] [place] [address]12 PCP - General Internal Medicine 05/05/21 09/13/22 Rosetta Diamond MD [address] [place] [address] PCP - General Internal Medicine 09/14/22 documented as of this encounter
--- OUTSIDE RECORDS SUMMARY | 2025-01-14 17:39 | XMS_ITS | Encounter Summary ---
Author Organization [facility] Address [address] [place] [address] Care Team Providers Care Sales Operations Name Role Phone Michelle Norris MD Primary Care Provider Unavail able [facility], Pcp Primary Care Provider Unavailabl e Michelle Norris MD Primary Care Provider Unavail able Rosetta Diamond MD Primary Care Provider + Encounter Details Date Type Department Care Team Description 09/09/2018 Hospital Medical Records [address] [place] [address] Jefe Robison NP Social History Tobacco Use [...] on filedocumented in this encounter Care Teams Sales Operations Relationship Specialty Start Date End Date Michelle Norris MD PCP - General Internal Medicine 03/05/17 03/16/21 [facility], Pcp PCP - General Internal Medicine 03/17/21 05/04/21 Michelle Norris MD PCP - General Internal Medicine 05/05/21 09/13/22 Rosetta Diamond MD [address] [place] [address] PCP - General Internal Medicine 09/14/22 documented as of this encounter
--- OUTSIDE RECORDS SUMMARY | 2025-01-14 17:39 | XMS_ITS | Encounter Summary ---
Author Organization [facility] Address [address] [place] [address] Care Team Providers Care Manager Strategic Alliances Name Role Phone Michelle Norris MD Primary Care Provider Unavail able [facility], Pcp Primary Care Provider Unavailabl Michelle Lagos MD Primary Care Provider Unavail able Rosetta Diamond MD Primary Care Provider + Reason for Visit * Reason Onset Date Comments Faxed Order 04/26/2018 Encounter Details Date Type Department Care Team Description 04/26/2018 Telephone Adult [address] [address] Michelle Norris MD Faxed Order Social History [...] encounter Miscellaneous Notes * Telephone Encounter - Rosario Renee - 04/26/2018 9:32 AM EDT Faxed order received from [facility][NOTE 2] please sign, date, and fax back to [phone]. documented in this encounter Plan of Treatment Not on file documented as of this encounter Visit Diagnoses Not on filedocumented in this encounter Care Teams Manager Strategic Alliances Relationship Specialty Start Date End Date Michelle Norris MD PCP - General Internal Medicine 03/05/17 03/16/21 [facility], Pcp PCP - General Internal Medicine 03/17/21 05/04/21 Michelle Norris MD PCP - General Internal Medicine 05/05/21 09/13/22 Rosetta Diamond MD [address] [place] [address] PCP - General Internal Medicine 09/14/22 documented as of this encounter
--- OUTSIDE RECORDS SUMMARY | 2025-01-14 17:39 | XMS_ITS | Encounter Summary ---
Author Organization [facility] Address [address] [place] [address] Care Team Providers Care Animal Shelter Manager Name Role Phone Nikki Alcantar MD Primary Care Provider [phone] Michelle Norris MD Primary Care Provider Unavail able [facility] Primary Care Provider [facility] Michelle Norris MD Primary Care Provider Unavail [facility] Rosetta Diamond MD Primary Care Provider + Encounter Details Date Type Department Care Team Description 09/15/2011 Hospital Medical Records [address] [place] [address] Jones Carmen [address] [place] [address] Social History Tobacco Use Types Packs/Day Years [...] on filedocumented in this encounter Care Teams Animal Shelter Manager Relationship Specialty Start Date End Date Nikki Alcantar MD [address] [place] [address] PCP - General 06/26/05 03/04/17 Michelle Norris MD [address] [place] [address] PCP - General Internal Medicine 03/05/17 03/16/21 [facility], Pcp [address] [place] [address]671 PCP - General Internal Medicine 03/17/21 05/04/21 Michelle Norris MD [address] [place] [address] PCP - General Internal Medicine 05/05/21 09/13/22 Rosetta Diamond MD [address] [place] [address] [phone] PCP - General Internal Medicine 09/14/22 documented as of this encounter
--- OUTSIDE RECORDS SUMMARY | 2025-01-14 17:39 | XMS_ITS | Encounter Summary ---
Author Organization [facility] Address [address] [place] [address] Care Team Providers Care Security Alarm Installer Name Role Phone Michelle Norris MD Primary Care Provider Unavail able [facility], Pcp Primary Care [facility] Michelle Norris MD Primary Care Provider Unavail able Rosetta Diamond MD Primary Care Provider + Encounter Details Date Type Department Care Team Description 04/25/2018 Refill Adult Medicine [address] [address] Michelle Norris MD Social History Tobacco Use [...] on filedocumented in this encounter Care Teams Security Alarm Installer Relationship Specialty Start Date End Date Michelle Norris MD PCP - General Internal Medicine 03/05/17 03/16/21 [facility], Pcp PCP - General Internal Medicine 03/17/21 05/04/21 Michelle Norris MD PCP - General Internal Medicine 05/05/21 09/13/22 Rosetta Diamond MD [address] [place] [phone] PCP - General Internal Medicine 09/14/22 documented as of this encounter
--- OUTSIDE RECORDS SUMMARY | 2025-01-14 17:39 | XMS_ITS | Encounter Summary ---
Author Organization [facility] Address [address] [place] [address] Care Team Providers Care Health Director Name Role Phone Nikki Alcantar MD Primary Care Provider [phone] Michelle Norris MD Primary Care Provider Unavail able [facility] Primary Care Provider [facility] Michelle Norris MD Primary Care Provider Unavail able Rosetta Diamond MD Primary Care Provider + Reason for Visit * Reason Onset Date Comments Call From Hospital 03/23/2015 Encounter Details Date Type Department Care Team Description 03/23/2015 Telephone Adult Medicine [address] [phone] Nikki Alcantar MD [address] [place] [address] [phone] Call From Hospital Social History Tobacco Use [...] EDT fyi to dr josé Porter from [facility] psych unit called to notify Dr Alcantar that patient was admitted on 03/21/15 documented in this encounter Plan of Treatment Not on file documented as of this encounter Visit Diagnoses Not on filedocumented in this encounter Care Teams Health Director Relationship Specialty Start Date End Date Nikki Alcantar MD [address] [place] [address] PCP - General 06/26/05 03/04/17 Michelle Norris MD [address] [place], [place] [phone] PCP - General Internal Medicine 03/05/17 03/16/21 [place] [address] PCP - General Internal Medicine 03/17/21 05/04/21 Michelle Norris MD [address] [place] [address] PCP - General Internal Medicine 05/05/21 09/13/22 Rosetta Diamond MD [address] [place], [place] [phone] PCP - General Internal Medicine 09/14/22 documented as of this encounter
--- OUTSIDE RECORDS SUMMARY | 2025-01-14 17:39 | XMS_ITS | Encounter Summary ---
Author Organization [facility] Address [address] [place] [address] Care Team Providers Care Loader Helper Sorting Yard Name Role Phone Michelle Norris MD Primary Care Provider Unavail able [facility] Primary Care Provider [facility] Michelle Lagos MD Primary Care Provider Unavail able Rosetta Diamond MD Primary Care Provider + Reason for Visit * Reason Onset Date Comments Call From Hospital 06/18/2018 Encounter Details Date Type Department Care Team Description 06/18/2018 Telephone Adult Medicine [address] [phone] Michelle Norris MD Call From Hospital Social [...] callers name? Aurea Callers relationship to patient? [facility] health unit If person calling is not the patient themselves, is there a verbal release in FYI or permanent comments for this person: NO Reason for call back: FYI, wants to inform Dr Griffiths that [facility]. Caller offered to speak with the nurse for assistance: YES Response: Patient offered to speak with nurse for assistance and patient agreed. Message forwarded to nurse. documented in this encounter Plan of Treatment Not on file documented as of this encounter Visit Diagnoses Not on filedocumented in this encounter Care Teams Loader Helper Sorting Yard Relationship Specialty Start Date End Date Michelle Norris MD PCP - General Internal Medicine 03/05/17 03/16/21 [facility] PCP - General Internal Medicine 03/17/21 05/04/21 Michelle Norris MD PCP - General Internal Medicine 05/05/21 09/13/22 Rosetta Diamond MD [address] [place] [address] PCP - General Internal Medicine 09/14/22 documented as of this encounter
--- OUTSIDE RECORDS SUMMARY | 2025-01-14 17:39 | XMS_ITS | Encounter Summary ---
Author Organization [facility] Address [address] [place] [address] Care Team Providers Care Guard Immigration Name Role Phone Katherine Norris MD Primary Care Provider Unavail able [facility], Pcp Primary Care Provider Katherine Abdi MD Primary Care Provider Unavail able Rosetta Diamond MD Primary Care Provider + Reason for Visit * Reason Onset Date Comments Information Needed 03/16/2020 Encounter Details Date Type Department Care Team Description 03/16/2020 Telephone Adult [address] [address] Katherine Norris MD Information Needed Social History [...] 10:37 AM EDT Patient is [facility] just a FYI to KATHERINE NORRIS documented in this encounter Plan of Treatment Not on file documented as of this encounter Visit Diagnoses Not on filedocumented in this encounter Care Teams Guard Immigration Relationship Specialty Start Date End Date Katherine Norris MD PCP - General Internal Medicine 03/05/17 03/16/21 Count Includes [facility], Pcp PCP - General Internal Medicine 03/17/21 05/04/21 Katherine Norris MD PCP - General Internal Medicine 05/05/21 09/13/22 Rosetta Diamond MD [address] [place] [address] PCP - General Internal Medicine 09/14/22 documented as of this encounter
--- OUTSIDE RECORDS SUMMARY | 2025-01-14 17:39 | XMS_ITS | Encounter Summary ---
Author Organization [facility] Address [address] [place] [address] Care Team Providers Care Machine Load Clerk Name Role Phone Michelle Norris MD Primary Care Provider Unavail able [facility], Pcp Primary Care [facility] Michelle Norris MD Primary Care Provider Unavail able Rosetta Diamond MD Primary Care Provider + Encounter Details Date Type Department Care Team Description 09/22/2017 Hospital Medical Records [address] [place] [address] Social History Tobacco Use Types Packs/Day Years [...] filedocumented in this encounter Care Teams Machine Load Clerk Relationship Specialty Start Date End Date Michelle Norris MD PCP - General Internal Medicine 03/05/17 03/16/21 [facility], Pcp PCP - General Internal Medicine 03/17/21 05/04/21 Michelle Norris MD PCP - General Internal Medicine 05/05/21 09/13/22 Rosetta Diamond MD [address] [place] [address] PCP - General Internal Medicine 09/14/22 documented as of this encounter
--- OUTSIDE RECORDS SUMMARY | 2025-01-14 17:39 | XMS_ITS | Encounter Summary ---
Author Organization [facility] Address [address] [place] [address] Care Team Providers Care Superintendent Meters Name Role Phone Michelle Norris MD Primary Care Provider Unavail able [facility] Michelle Lagos MD Primary Care Provider Unavail able Rosetta Diamond MD Primary Care Provider + Reason for Visit * Reason Onset Date Comments Provider Call Back 10/12/2020 Encounter Details Date Type Department Care Team Description 10/12/2020 Telephone Adult Medicine [address] [address] Michelle Norris MD Provider Call Back Social [...] direct care staff returned call. Please call [phone] to speak with Milton if florencio can [...] this person: NO Reason for call back: [facility] calling would like to speak to [...] on filedocumented in this encounter Care Teams Superintendent Meters Relationship Specialty Start Date End Date Michelle Norris MD PCP - General Internal Medicine 03/05/17 03/16/21 [facility], Pcp PCP - General Internal Medicine 03/17/21 05/04/21 Michelle Norris MD PCP - General Internal Medicine 05/05/21 09/13/22 Rosetta Diamond MD [address] [place] [address] PCP - General Internal Medicine 09/14/22 documented as of this encounter
--- OUTSIDE RECORDS SUMMARY | 2025-01-14 17:39 | XMS_ITS | Encounter Summary ---
Author Organization [facility] Address [address] [place] [address] Care Team Providers Care Focuser Name Role Phone Nikki Alcantar MD Primary Care Provider [phone] Michelle Norris MD Primary Care Provider Unavail [facility] Primary Care Provider [facility] Michelle Norris MD Primary Care Provider Unavail [facility] Rosetta Diamond MD Primary Care Provider + Encounter Details Date Type Department Care Team Description 02/16/2012 Hospital Medical Records [address] [place] [address] 28065 Subhash Mcdaniel Social History Tobacco Use Types [...] on filedocumented in this encounter Care Teams Focuser Relationship Specialty Start Date End Date Nikki Alcantar MD [address] [place] [address] 34083 PCP - General 06/26/05 03/04/17 Michelle Norris MD [address] [place] [address] 71380 PCP - General Internal Medicine 03/05/17 03/16/21 [facility], Pcp [address] [place] [address] 90190 PCP - General Internal Medicine 03/17/21 05/04/21 Michelle Norris MD [address] [place] [address] 41699 PCP - General Internal Medicine 05/05/21 09/13/22 Rosetta Diamond MD [address] [place] [address]20 PCP - General Internal Medicine 09/14/22 documented as of this encounter
--- OUTSIDE RECORDS SUMMARY | 2025-01-14 17:39 | XMS_ITS | Encounter Summary ---
Author Organization [facility] Address [address] [place] [address] Care Team Providers Care Hook And Eye Sewing Machine Operator Name Role Phone Nikki Alcantar MD Primary Care Provider [phone] Michelle Norris MD Primary Care Provider Unavail [facility] Primary Care Provider [facility] Michelle Norris MD Primary Care Provider Unavail [facility] Rosetta Diamond MD Primary Care Provider + Encounter Details Date Type Department Care Team Description 11/26/2007 Hospital Medical Records [address] [place] [address] Alverto Hernandez Social History Tobacco Use Types [...] on filedocumented in this encounter Care Teams Hook And Eye Sewing Machine Operator Relationship Specialty Start Date End Date Nikki Alcantar MD [address] [place] [address] 98015 PCP - General 06/26/05 03/04/17 Michelle Norris MD [address] [place] [address] 34493 PCP - General Internal Medicine 03/05/17 03/16/21 [facility], Pcp [address] [place] [address] 17162 PCP - General Internal Medicine 03/17/21 05/04/21 Michelle Norris MD [address] [place] [address] 95522 PCP - General Internal Medicine 05/05/21 09/13/22 Rosetta Diamond MD [address] [place] [address]20 PCP - General Internal Medicine 09/14/22 documented as of this encounter
--- OUTSIDE RECORDS SUMMARY | 2025-01-14 17:39 | XMS_ITS | Encounter Summary ---
Author Organization [facility] Address [address] [place] [address] Care Team Providers Care Concrete Paving Machine Operator Name Role Phone Michelle Norris MD Primary Care Provider Unavail able [facility], Pcp [facility] Michelle Lagos MD Primary Care Provider Unavail able Rosetta Diamond MD Primary Care Provider + Reason for Visit * Reason Onset Date Comments hospital follow up 01/31/2018 Encounter Details Date Type Department Care Team Description 01/31/2018 Telephone Adult Medicine [address] [address] Michelle Norris MD hospital follow up Social [...] fax notes Hospital patient was treated at: [facility] Was this only an ER visit [...] on filedocumented in this encounter Care Teams Concrete Paving Machine Operator Relationship Specialty Start Date End Date Michelle Norris MD PCP - General Internal Medicine 03/05/17 03/16/21 [facility] PCP - General Internal Medicine 03/17/21 05/04/21 Michelle Norris MD PCP - General Internal Medicine 05/05/21 09/13/22 Rosetta Diamond MD [address] [place] [address]86 PCP - General Internal Medicine 09/14/22 documented as of this encounter
--- OUTSIDE RECORDS SUMMARY | 2025-01-14 17:39 | XMS_ITS | Encounter Summary ---
Author Organization [facility] Address [address] [place] [address] Care Team Providers Care Traffic Administrator Name Role Phone Michelle Norris MD Primary Care Provider [facility]ail [facility] Pcp [facility] Michelle Norris MD Primary Care Provider Unavail able Rosetta Diamond MD Primary Care Provider + Encounter Details Date Type Department Care Team Description 05/08/2018 Hospital Medical Records [address] [place] [address] Abstract, Provider Social History Tobacco Use Types [...] filedocumented in this encounter Care Teams Traffic Administrator Relationship Specialty Start Date End Date Michelle Norris MD PCP - General Internal Medicine 03/05/17 03/16/21 [facility], Pcp PCP - General Internal Medicine 03/17/21 05/04/21 Michelle Norris MD PCP - General Internal Medicine 05/05/21 09/13/22 Rosetta Diamond MD [address] [place] [address] PCP - General Internal Medicine 09/14/22 documented as of this encounter
--- OUTSIDE RECORDS SUMMARY | 2025-01-14 17:39 | XMS_ITS | Encounter Summary ---
Author Organization [facility] Address [address] [place] [address] Care Team Providers Care Straight Line Press Setter Name Role Phone Nikki Alcantar MD Primary Care Provider [phone] Michelle Norris MD Primary Care Provider Unavail able [facility] Primary Care Provider [facility] Michelle Norris MD Primary Care Provider Unavail able Rosetta Diamond MD Primary Care Provider + Encounter Details Date Type Department Care Team Description 09/29/2012 Telephone Adult Medicine [facility] [address] [place] [address] [phone] Nikki Alcantar MD [address] [place] [address] [phone] Social History Tobacco Use Types Packs/Day Years [...] on filedocumented in this encounter Care Teams Straight Line Press Setter Relationship Specialty Start Date End Date Nikki Alcantar MD [address] [place] [address] PCP - General 06/26/05 03/04/17 Michelle Norris MD [address] [place], [place] [phone] PCP - General Internal Medicine 03/05/17 03/16/21 [place] [address] PCP - General Internal Medicine 03/17/21 05/04/21 Michelle Norris MD [address] [place] [address] PCP - General Internal Medicine 05/05/21 09/13/22 Rosetta Diamond MD [address] [place] [address] PCP - General Internal Medicine 09/14/22 documented as of this encounter
--- OUTSIDE RECORDS SUMMARY | 2025-01-14 17:39 | XMS_ITS | Encounter Summary ---
Author Organization [facility] Address [address] [place] [address] Care Team Providers Care Board Runner Name Role Phone Mihcelle Norris MD Primary Care Provider Unavail able [facility], Pcp Primary Care Provider [facility] Michelle Lagos MD Primary Care Provider Unavail able Rosetta Diamond MD Primary Care Provider + Reason for Visit * Reason Onset Date Comments hospital follow up 08/29/2017 Encounter Details Date Type Department Care Team Description 08/29/2017 Telephone Adult Medicine [address] [address] Michelle Norris MD hospital follow up Social [...] appointment needed Hospital patient was treated at: [facility] Was this only an ER [...] on filedocumented in this encounter Care Teams Board Runner Relationship Specialty Start Date End Date Michelle Norris MD PCP - General Internal Medicine 03/05/17 03/16/21 [facility] PCP - General Internal Medicine 03/17/21 05/04/21 Michelle Norris MD PCP - General Internal Medicine 05/05/21 09/13/22 Rosetta Diamond MD [address] [place] [address] PCP - General Internal Medicine 09/14/22 documented as of this encounter
--- OUTSIDE RECORDS SUMMARY | 2025-01-14 17:39 | XMS_ITS | Encounter Summary ---
Author Organization [facility] Address [address] [place] [address] Care Team Providers Care Trouble Tracer Name Role Phone Nikki Alcantar MD Primary Care Provider [phone] Michelle Norris MD Primary Care Provider Unavail [facility] Primary Care Provider [facility] Michelle Norris MD Primary Care Provider Unavail [facility] Rosetta Diamond MD Primary Care Provider + Encounter Details Date Type Department Care Team Description 07/05/2012 Transfer Records Medical Records [address] [place] [address]859 Abstract, Provider Social History Tobacco Use Types [...] on filedocumented in this encounter Care Teams Trouble Tracer Relationship Specialty Start Date End Date Nikki Alcantar MD [address] [place] [address] 20822 PCP - General 06/26/05 03/04/17 Michelle Norris MD [address] [place] [address] PCP - General Internal Medicine 03/05/17 03/16/21 [facility], Pcp [address] [place] [address] PCP - General Internal Medicine 03/17/21 05/04/21 Michelle Norris MD [address] [place] [address] 17458 PCP - General Internal Medicine 05/05/21 09/13/22 Rosetta Diamond MD [address] [place], [place] [phone] PCP - General Internal Medicine 09/14/22 documented as of this encounter
--- OUTSIDE RECORDS SUMMARY | 2025-01-14 17:39 | XMS_ITS | Encounter Summary ---
Author Organization [facility] Address [address] [place] [address] Care Team Providers Care Physical Meteorologist Name Role Phone Nikki Alcantar MD Primary Care Provider [phone] Michelle Norris MD Primary Care Provider Unavail [facility] Primary Care Provider [facility] Michelle Norris MD Primary Care Provider Unavail [facility] Rosetta Diamond MD Primary Care Provider + Encounter Details Date Type Department Care Team Description 10/28/2014 Hospital Medical Records [address] [place] [address] Social History Tobacco Use Types Packs/Day Years [...] on filedocumented in this encounter Care Teams Physical Meteorologist Relationship Specialty Start Date End Date Nikki Alcantar MD [address] [place] [address] 80051 PCP - General 06/26/05 03/04/17 Michelle Norris MD [address] [place] [address] PCP - General Internal Medicine 03/05/17 03/16/21 [facility], Pcp [address] [place] [address] 97998 PCP - General Internal Medicine 03/17/21 05/04/21 Michelle Norris MD [address] [place] [address] 11358 PCP - General Internal Medicine 05/05/21 09/13/22 Rosetta Diamond MD [address] [place] [address] KARTIK CHEN [address] PCP - General Internal Medicine 09/14/22 documented as of this encounter
--- OUTSIDE RECORDS SUMMARY | 2025-01-14 17:39 | XMS_ITS | Encounter Summary ---
Author Organization [facility] Address [address] [place] [address] Care Team Providers Care Mold Changer Name Role Phone Michelle Norris MD Primary Care Provider [facility]avail [facility], Pcp [facility] Michelle Norris MD Primary Care Provider Unavail able Rosetta Diamond MD Primary Care Provider + Encounter Details Date Type Department Care Team Description 10/16/2017 Hospital Medical Records [address] [place] [address] Marlen Grande Social History Tobacco Use Types [...] on filedocumented in this encounter Care Teams Mold Changer Relationship Specialty Start Date End Date Michelle Norris MD PCP - General Internal Medicine 03/05/17 03/16/21 [facility], Pcp PCP - General Internal Medicine 03/17/21 05/04/21 Michelle Norris MD PCP - General Internal Medicine 05/05/21 09/13/22 Rosetta Dimaond MD [address] [place] [address] PCP - General Internal Medicine 09/14/22 documented as of this encounter
--- OUTSIDE RECORDS SUMMARY | 2025-01-14 17:39 | XMS_ITS | Encounter Summary ---
Author Organization [facility] Address [address] [place] [address] Care Team Providers Care Production Underwriter Name Role Phone Nikki Alacntar MD Primary Care Provider [phone] Michelle Norris MD Primary Care Provider Unavail [facility] Primary Care Provider [facility] Michelle Norris MD Primary Care Provider Unavail [facility] Rosetta Diamond MD Primary Care Provider + Encounter Details Date Type Department Care Team Description 04/02/2014 Hospital Medical Records [address] [place] [address] [phone] Social History Tobacco Use Types Packs/Day Years [...] filedocumented in this encounter Care Teams Production Underwriter Relationship Specialty Start Date End Date Nikki Alcantar MD [address] [place] [address] 80896 PCP - General 06/26/05 03/04/17 Michelle Norris MD [address] [place] [address] 37014 PCP - General Internal Medicine 03/05/17 03/16/21 [facility], Pcp [address] [place] [address] 05748 PCP - General Internal Medicine 03/17/21 05/04/21 Michelle Norris MD [address] [place] [address] 23400 PCP - General Internal Medicine 05/05/21 09/13/22 Rosetta Diamond MD [address] [place] [address]20 PCP - General Internal Medicine 09/14/22 documented as of this encounter
--- OUTSIDE RECORDS SUMMARY | 2025-01-14 17:39 | XMS_ITS | Encounter Summary ---
Author Organization [facility] Address [address] [place] [address] Care Team Providers Care Bar Assistant Name Role Phone Nikki Kumar MD Primary Care Provider Michelle Norris MD Primary Care Provider Unavail [facility] Primary Care Provider [facility] Michelle Norris MD Primary Care Provider Unavail able Rosetta Diamond MD Primary Care Provider + Reason for Visit * Reason Onset Date Comments Provider Call Back 11/30/2014 Encounter Details Date Type Department Care Team Description 11/30/2014 Telephone Adult Medicine [address] [phone] Nikki Kumar MD [address] [place] [address] [phone] Provider Call Back Social History Tobacco Use [...] 2 agencies I know of there do [facility] #[phone] And [facility] [place] [facility] will remain locked and dispensed as [...] / Plan: [place] / Product Type: MEDICARE [id number] documented in this encounter Plan of Treatment Not on file documented as of this encounter Visit Diagnoses Not on filedocumented in this encounter Care Teams Bar Assistant Relationship Specialty Start Date End Date Nikki Kumar MD [address] [place] [address] PCP - General 06/26/05 03/04/17 Michelle Norris MD [address] [place] [address] PCP - General Internal Medicine 03/05/17 03/16/21 [place] [address] PCP - General Internal Medicine 03/17/21 05/04/21 Michelle Norris MD [address] [place] [address] PCP - General Internal Medicine 05/05/21 09/13/22 Rosetta Diamond MD [address] [place] [address] PCP - General Internal Medicine 09/14/22 documented as of this encounter
--- OUTSIDE RECORDS SUMMARY | 2025-01-14 17:39 | XMS_ITS | Encounter Summary ---
Author Organization [facility] Address [address] [place] [address] Care Team Providers Care Seed Cleaner Name Role Phone Michelle Norris MD Primary Care Provider Unavail able [facility], Pcp Primary Care Provider Michelle Abdi MD Primary Care Provider Unavail able Rosetta Diamond MD Primary Care Provider + Reason for Visit * Reason Onset Date Comments hospital follow up 09/05/2017 Encounter Details Date Type Department Care Team Description 09/05/2017 Telephone Adult [address] [address] Michelle Norris MD hospital follow up Social [...] 09/05/2017 10:11 AM EST Patient admitted at [facility] today. documented in this encounter Plan of Treatment Not on file documented as of this encounter Visit Diagnoses Not on filedocumented in this encounter Care Teams Seed Cleaner Relationship Specialty Start Date End Date Michelle Norris MD PCP - General Internal Medicine 03/05/17 03/16/21 [facility], Pcp PCP - General Internal Medicine 03/17/21 05/04/21 Michelle Norris MD PCP - General Internal Medicine 05/05/21 09/13/22 Rosetta Diamond MD [address] [place] [address]753 PCP - General Internal Medicine 09/14/22 documented as of this encounter
--- OUTSIDE RECORDS SUMMARY | 2025-01-14 17:39 | XMS_ITS | Encounter Summary ---
Author Organization [facility] Address [address] [place] [address] Care Team Providers Care Prior Authorization Nurse Name Role Phone Michelle Norris MD Primary Care Provider [facility], Pcp [facility] Michelle Norris MD Primary Care Provider Unavail able Rosetta Diamond MD Primary Care Provider + Encounter Details Date Type Department Care Team Description 04/13/2018 Hospital Medical Records [address] [place] [address] Social History Tobacco Use Types Packs/Day Years [...] on filedocumented in this encounter Care Teams Prior Authorization Nurse Relationship Specialty Start Date End Date Michelle Norris MD PCP - General Internal Medicine 03/05/17 03/16/21 [facility], Pcp PCP - General Internal Medicine 03/17/21 05/04/21 Michelle Norris MD PCP - General Internal Medicine 05/05/21 09/13/22 Rosetta Diamond MD [address] [place] [address]656 PCP - General Internal Medicine 09/14/22 documented as of this encounter
--- OUTSIDE RECORDS SUMMARY | 2025-01-14 17:39 | XMS_ITS | Encounter Summary ---
Author Organization [facility] Address [address] [place] [address] Care Team Providers Care Roofing Technician Name Role Phone Nikki Alcantar MD Primary Care Provider [phone] Michelle Norris MD Primary Care Provider Unavail [facility] Primary Care Provider [facility] Michelle Norris MD Primary Care Provider Unavail [facility] Rosetta Diamond MD Primary Care Provider + Encounter Details Date Type Department Care Team Description 07/30/2014 Hospital Medical Records [address] [place] [address] Social History Tobacco Use Types Packs/Day Years [...] on filedocumented in this encounter Care Teams Roofing Technician Relationship Specialty Start Date End Date Nikki Alcantar MD [address] [place] [address] PCP - General 06/26/05 03/04/17 Michelle Norris MD [address] [place] [address] 24795 PCP - General Internal Medicine 03/05/17 03/16/21 [facility], Pcp [address] [place] [address] 06680 PCP - General Internal Medicine 03/17/21 05/04/21 Michelle Norris MD [address] [place] [address] 46645 PCP - General Internal Medicine 05/05/21 09/13/22 Rosetta Diamond MD [address] [place] [address] KARTIK CHEN [address]105 PCP - General Internal Medicine 09/14/22 documented as of this encounter
--- OUTSIDE RECORDS SUMMARY | 2025-01-14 17:39 | XMS_ITS | Encounter Summary ---
Author Organization [facility] Address [address] [place] [address] Care Team Providers Care Electrician Underground Name Role Phone Michelle Norris MD Primary Care Provider Unavail [facility], Pcp Primary Care Provider Unavailabl e Michelle Norris MD Primary Care Provider Unavail able Rosetta Diamond MD Primary Care Provider + Encounter Details Date Type Department Care Team Description 09/24/2020 Hospital Medical Records [address] [place] [address] Ibrahima Ron Social History Tobacco Use Types [...] on filedocumented in this encounter Care Teams Electrician Underground Relationship Specialty Start Date End Date Michelle Norris MD PCP - General Internal Medicine 03/05/17 03/16/21 [facility], Pcp PCP - General Internal Medicine 03/17/21 05/04/21 Michelle Norris MD PCP - General Internal Medicine 05/05/21 09/13/22 Rosetta Diamond MD [address] [place] [address] PCP - General Internal Medicine 09/14/22 documented as of this encounter
--- OUTSIDE RECORDS SUMMARY | 2025-01-14 17:39 | XMS_ITS | Encounter Summary ---
Author Organization [facility] Address [address] [place] [address] Care Team Providers Care Rounder And Backer Name Role Phone Nikki Alcantar MD Primary Care Provider Michelle Norris MD Primary Care Provider Unavail [facility] Primary Care Provider [facility] Michelle Norris MD Primary Care Provider Unavail [facility] Rosetta Diamond MD Primary Care Provider + Encounter Details Date Type Department Care Team Description 05/17/2012 Hospital Medical Records [address] [place] [address] Miles Shah MD Social History Tobacco Use [...] on filedocumented in this encounter Care Teams Rounder And Backer Relationship Specialty Start Date End Date Nikki Alcantar MD [address] [place] [address] 18749 PCP - General 06/26/05 03/04/17 Michelle Norris MD [address] [place] [address] 39632 PCP - General Internal Medicine 03/05/17 03/16/21 [facility], Pcp [address] [place] [address]646 PCP - General Internal Medicine 03/17/21 05/04/21 Michelle Norris MD [address] [place] [address] 14818 PCP - General Internal Medicine 05/05/21 09/13/22 Rosetta Diamond MD [address] [place] [address] PCP - General Internal Medicine 09/14/22 documented as of this encounter
--- OUTSIDE RECORDS SUMMARY | 2025-01-14 17:39 | XMS_ITS | Encounter Summary ---
Author Organization [facility] Address [address] [place] [address] Care Team Providers Care Construction Technology Instructor Name Role Phone Nikki Alcantar MD Primary Care Provider [phone] Michelle Norris MD Primary Care Provider Unavail [facility] Primary Care Provider [facility] Michelle Norris MD Primary Care Provider Unavail [facility] Rosetta Diamond MD Primary Care Provider + Encounter Details Date Type Department Care Team Description 11/22/2011 Hospital Medical Records [address] [place] [address] Jose Echols MD Social History Tobacco Use [...] on filedocumented in this encounter Care Teams Construction Technology Instructor Relationship Specialty Start Date End Date Nikki Alcantar MD [address] [place] [address]44 PCP - General 06/26/05 03/04/17 Michelle Norris MD [address] [place] [address] 28816 PCP - General Internal Medicine 03/05/17 03/16/21 [facility], Pcp [address] [place] [address] PCP - General Internal Medicine 03/17/21 05/04/21 Michelle Norris MD [address] [place] [address] 72135 PCP - General Internal Medicine 05/05/21 09/13/22 Rosetta Diamond MD [address] [place] [address] PCP - General Internal Medicine 09/14/22 documented as of this encounter
--- OUTSIDE RECORDS SUMMARY | 2025-01-14 17:39 | XMS_ITS | Encounter Summary ---
Author Organization [facility] Address [address] [place] [address] Care Team Providers Care Rn Family Name Role Phone Nikki Alcantar MD Primary Care Provider [phone] Michelle Norris MD Primary Care Provider Unavail [facility] Primary Care Provider [facility] Michelle Norris MD Primary Care Provider Unavail [facility] Rosetta Diamond MD Primary Care Provider + Encounter Details Date Type Department Care Team Description 10/24/2007 Hospital Medical Records [address] [place] [address] [facility] Social History Tobacco Use Types Packs/Day [...] filedocumented in this encounter Care Teams Rn Family Relationship Specialty Start Date End Date Nikki Alcantar MD [address] [place] [address] PCP - General 06/26/05 03/04/17 Michelle Norris MD [address] [place] [address] 26178 PCP - General Internal Medicine 03/05/17 03/16/21 [facility], Pcp [address] [place] [address] 39297 PCP - General Internal Medicine 03/17/21 05/04/21 Michelle Norris MD [address] [place] [address] 03937 PCP - General Internal Medicine 05/05/21 09/13/22 Rosetta Diamond MD [address] [place] [address] PCP - General Internal Medicine 09/14/22 documented as of this encounter
--- OUTSIDE RECORDS SUMMARY | 2025-01-14 17:39 | XMS_ITS | Encounter Summary ---
Author Organization [facility] Address [address] [place] [address] Care Team Providers Care Director Of Guidance Name Role Phone Nikki Alcantar MD Primary Care Provider [phone] Michelle Norris MD Primary Care Provider Unavail [facility] Primary Care Provider [facility] Michelle Norris MD Primary Care Provider Unavail [facility] Rosetta Diamond MD Primary Care Provider + Encounter Details Date Type Department Care Team Description 07/18/2012 Shredding Machine Tender Report Medical Records [address] [place] [address] Julio Paredes MD Social History Tobacco Use [...] filedocumented in this encounter Care Teams Director Of Guidance Relationship Specialty Start Date End Date Nikki Alcantar MD [address] [place] [address]2619 PCP - General 06/26/05 03/04/17 Michelle Norris MD [address] [place] [address] PCP - General Internal Medicine 03/05/17 03/16/21 [facility], Pcp [address] [place] [address] 93560 PCP - General Internal Medicine 03/17/21 05/04/21 Michelle Norris MD [address] [place] [address] [place] [address] PCP - General Internal Medicine 05/05/21 09/13/22 Rosetta Diamond MD [address] [place], [place] [phone] PCP - General Internal Medicine 09/14/22 documented as of this encounter
--- OUTSIDE RECORDS SUMMARY | 2025-01-14 17:39 | XMS_ITS | Encounter Summary ---
Author Organization [facility] Address [address] [place] [address] Care Team Providers Care Director Of Operations Home Health Name Role Phone Nikki Alcantar MD Primary Care Provider [phone] Michelle Norris MD Primary Care Provider Unavail [facility] Primary Care Provider [facility] Michelle Norris MD Primary Care Provider Unavail able Rosetta Diamond MD Primary Care Provider + Encounter Details Date Type Department Care Team Description 12/20/2007 [facility] Medical Records [address] [place] [address] Abstract, Provider Social History Tobacco Use Types [...] in this encounter Care Teams Director Of Operations Home Health Relationship Specialty Start Date End Date Nikki Alcantar MD [address] [place] [address]1020 PCP - General 06/26/05 03/04/17 Michelle Norris MD [address] [place] [address] 40002 PCP - General Internal Medicine 03/05/17 03/16/21 [facility], [address] [address] PCP - General Internal Medicine 03/17/21 05/04/21 Michelle Norris MD [address] [place] [address] 57486 PCP - General Internal Medicine 05/05/21 09/13/22 Rosetta Diamond MD [address] [place] [address]47 PCP - General Internal Medicine 09/14/22 documented as of this encounter
--- OUTSIDE RECORDS SUMMARY | 2025-01-14 17:39 | XMS_ITS | Encounter Summary ---
Author Organization [facility] Address [address] [place] [address] Care Team Providers Care Is Architect Name Role Phone Michelle Norris MD Primary Care Provider Unavail able Rosetta Diamond MD Primary Care Provider + Encounter Details Date Type Department Care Team Description 05/17/2021 Hospital Medical Records [address] [place] [address] Robby Bazan Social History Tobacco Use Types [...] on filedocumented in this encounter Care Teams Is Architect Relationship Specialty Start Date End Date Michelle Norris MD PCP - General Internal Medicine 05/05/21 09/13/22 Rosetta Diamond MD [address] [place] [address] PCP - General Internal Medicine 09/14/22 documented as of this encounter
--- OUTSIDE RECORDS SUMMARY | 2025-01-14 17:39 | XMS_ITS | Encounter Summary ---
Author Organization [facility] Address [address] [place] [address] Care Team Providers Care Pediatric Physical Therapy Assistant Name Role Phone Michelle Norris MD Primary Care Provider Unavail [facility] Pcp [facility] Michelle Norris MD Primary Care Provider Unavail able Rosetta Diamond MD Primary Care Provider + Encounter Details Date Type Department Care Team Description 01/10/2018 Enterprise Application Architect Report Medical Records [address] [place] [address] Salma Mahmood FNP Social History Tobacco Use Types Packs/Day Years [...] on filedocumented in this encounter Care Teams Pediatric Physical Therapy Assistant Relationship Specialty Start Date End Date Michelle Norris MD PCP - General Internal Medicine 03/05/17 03/16/21 [facility], Pcp PCP - General Internal Medicine 03/17/21 05/04/21 Michelle Norris MD PCP - General Internal Medicine 05/05/21 09/13/22 Rosetta Diamond MD [address] [place] [address] PCP - General Internal Medicine 09/14/22 documented as of this encounter
--- OUTSIDE RECORDS SUMMARY | 2025-01-14 17:39 | XMS_ITS | Encounter Summary ---
Author Organization [facility] Address [address] [place] [address] Care Team Providers Care Cleaning Technician Name Role Phone Nikki Alcantar MD Primary Care Provider [phone] Michelle Norris MD Primary Care Provider Unavail able [facility] Michelle Norris MD Primary Care Provider Unavail able Rosetta Diamond MD Primary Care Provider + Reason for Visit * Reason Onset Date Comments other 03/22/2015 Encounter Details Date Type Department Care Team Description 03/22/2015 Telephone Adult Medicine [address] [phone] Nikki Alcantar MD [address] [place] [address] [phone] other Social History Tobacco Use Types Packs/Day Years [...] encounter Miscellaneous Notes * Telephone Encounter - Brittany Reyes - 03/22/2015 12:37 PM EDT FYI: For Dr Alcantar, pt will be accepted by Shaunna Hopper by Dr Shah, call Val at [phone] with any questions, thank you! documented in this encounter Plan of Treatment Not on file documented as of this encounter Visit Diagnoses Not on filedocumented in this encounter Care Teams Cleaning Technician Relationship Specialty Start Date End Date Nikki Alcantar MD [address] [place] [address] PCP - General 06/26/05 03/04/17 Michelle Norris MD [address] [place], [place] [phone] PCP - General Internal Medicine 03/05/17 03/16/21 [place] [phone] PCP - General Internal Medicine 03/17/21 05/04/21 Michelle Norris MD [address] [place] [address] PCP - General Internal Medicine 05/05/21 09/13/22 Rosetta Diamond MD [address] [place] [address] PCP - General Internal Medicine 09/14/22 documented as of this encounter
--- OUTSIDE RECORDS SUMMARY | 2025-01-14 17:40 | XMS_ITS | Encounter Summary ---
Author Organization [facility] Address [address] [place] [address] Care Team Providers Care Block Bolter Mule Operator Name Role Phone Michelle Norris MD Primary Care Provider Unavail [facility], Pcp [facility] Michelle Norris MD Primary Care Provider Unavail able Rosetta Diamond MD Primary Care Provider + Encounter Details Date Type Department Care Team Description 11/18/2017 Hospital Medical Records [address] [place] [address] Marlen Grande Social History Tobacco Use Types [...] on filedocumented in this encounter Care Teams Block Bolter Mule Operator Relationship Specialty Start Date End Date Michelle Norris MD PCP - General Internal Medicine 03/05/17 03/16/21 [facility], Pcp PCP - General Internal Medicine 03/17/21 05/04/21 Michelle Norris MD PCP - General Internal Medicine 05/05/21 09/13/22 Rosetta Diamond MD [address] [place] [address] PCP - General Internal Medicine 09/14/22 documented as of this encounter
--- OUTSIDE RECORDS SUMMARY | 2025-01-14 17:40 | XMS_ITS | Encounter Summary ---
Author Organization [facility] Address [address] [place] [address] Care Team Providers Care Lacrosse Coach Name Role Phone Nikki Alcantar MD Primary Care Provider [phone] Michelle Norris MD Primary Care Provider Unavail [facility] Primary Care Provider [facility] Michelle Norris MD Primary Care Provider Unavail [facility] Rosetta Diamond MD Primary Care Provider + Encounter Details Date Type Department Care Team Description 08/17/2009 Hospital Medical Records [address] [place] [address] Sony Rothman Social History Tobacco Use Types [...] on filedocumented in this encounter Care Teams Lacrosse Coach Relationship Specialty Start Date End Date Nikki Alcantar MD [address] [place] [address]26 PCP - General 06/26/05 03/04/17 Michelle Norris MD [address] [place] [address] PCP - General Internal Medicine 03/05/17 03/16/21 [facility], Pcp [address] [place] [address] PCP - General Internal Medicine 03/17/21 05/04/21 Michelle Norris MD [address] [place] [address] [place] [address] PCP - General Internal Medicine 05/05/21 09/13/22 Rosetta Diamond MD [address] [place], [place] [phone] PCP - General Internal Medicine 09/14/22 documented as of this encounter
--- OUTSIDE RECORDS SUMMARY | 2025-01-14 17:40 | XMS_ITS | Encounter Summary ---
Author Organization [facility] Address [address] [place] [address] Care Team Providers Care Parachute Supervisor Name Role Phone Michelle Norris MD Primary Care Provider Unavail [facility], Pcp Primary Care [facility] Michelle Norris MD Primary Care Provider Unavail able Rosetta Diamond MD Primary Care Provider + Encounter Details Date Type Department Care Team Description 08/03/2017 Marketing Content Coordinator Report Medical Records [address] [place] [address] Abstract, Provider Social History Tobacco Use Types [...] on filedocumented in this encounter Care Teams Parachute Supervisor Relationship Specialty Start Date End Date Michelle Norris MD PCP - General Internal Medicine 03/05/17 03/16/21 [facility], Pcp PCP - General Internal Medicine 03/17/21 05/04/21 Michelle Norris MD PCP - General Internal Medicine 05/05/21 09/13/22 Rosetta Diamond MD [address] [place] [address]1020 PCP - General Internal Medicine 09/14/22 documented as of this encounter
--- OUTSIDE RECORDS SUMMARY | 2025-01-14 17:40 | XMS_ITS | Encounter Summary ---
Author Organization [facility] Address [address] [place] [address] Care Team Providers Care Software Applications Designer Name Role Phone Nikki Alcantar MD Primary Care Provider [phone] Michelle Norris MD Primary Care Provider Unavail [facility] Primary Care Provider [facility] Michelle Norris MD Primary Care Provider Unavail [facility] Rosetta Diamond MD Primary Care Provider + Encounter Details Date Type Department Care Team Description 12/24/2013 Hospital Medical Records [address] [place] [address] Marlen Grande Social History Tobacco Use Types [...] on filedocumented in this encounter Care Teams Software Applications Designer Relationship Specialty Start Date End Date Nikki Alcantar MD [address] [place] [address] 18081 PCP - General 06/26/05 03/04/17 Michelle Norris MD [address] [place] [address] 51627 PCP - General Internal Medicine 03/05/17 03/16/21 [facility], Pcp [address] [place] [address] 20995 PCP - General Internal Medicine 03/17/21 05/04/21 Michelle Norris MD [address] [place] [address] 45239 PCP - General Internal Medicine 05/05/21 09/13/22 Rosetta Diamond MD [address] [place] [address]1020 PCP - General Internal Medicine 09/14/22 documented as of this encounter
--- OUTSIDE RECORDS SUMMARY | 2025-01-14 17:40 | XMS_ITS | Encounter Summary ---
Author Organization [facility] Address [address] [place] [address] Care Team Providers Care Hooker Laster Name Role Phone Nikki Alcantar MD Primary Care Provider [phone] Michelle Norris MD Primary Care Provider Unavail [facility] Primary Care Provider [facility] Michelle Norris MD Primary Care Provider Unavail [facility] Rosetta Diamond MD Primary Care Provider + Encounter Details Date Type Department Care Team Description 10/07/2010 Hospital Medical Records [address] [place] [address] Kuldeep Botello Social History Tobacco Use Types [...] on filedocumented in this encounter Care Teams Hooker Laster Relationship Specialty Start Date End Date Nikki Alcantar MD [address] [place] [address]57 PCP - General 06/26/05 03/04/17 Michelle Norris MD [address] [place] [address] PCP - General Internal Medicine 03/05/17 03/16/21 [facility], Pcp [address] [place] [address] PCP - General Internal Medicine 03/17/21 05/04/21 Michelle Norris MD [address] [place] [address] [place] [address] PCP - General Internal Medicine 05/05/21 09/13/22 Rosetta Diamond MD [address] [place], [place] [phone] PCP - General Internal Medicine 09/14/22 documented as of this encounter
--- OUTSIDE RECORDS SUMMARY | 2025-01-14 17:40 | XMS_ITS | Encounter Summary ---
Author Organization [facility] Address [address] [place] [address] Care Team Providers Care Vp Strategic Partnerships Name Role Phone Nikki Alcantar MD Primary Care Provider [phone] Michelle Norris MD Primary Care Provider Unavail [facility] Primary Care Provider [facility] Michelle Norris MD Primary Care Provider [facility]avail [facility] Rosetta Diamond MD Primary Care Provider + Encounter Details Date Type Department Care Team Description 10/05/2010 Hospital Medical Records [address] [place] [address] Ebony Pacheco Social History Tobacco Use Types [...] filedocumented in this encounter Care Teams Vp Strategic Partnerships Relationship Specialty Start Date End Date Nikki Alcantar MD [address] [place] [address]7731 PCP - General 06/26/05 03/04/17 Michelle Norris MD [address] [place] [address] 91331 PCP - General Internal Medicine 03/05/17 03/16/21 [facility], Pcp [address] [place] [address] 12206 PCP - General Internal Medicine 03/17/21 05/04/21 Michelle Norris MD [address] [place] [address] 56235 PCP - General Internal Medicine 05/05/21 09/13/22 Rosetta Diamond MD [address] [place] [address] PCP - General Internal Medicine 09/14/22 documented as of this encounter
--- OUTSIDE RECORDS SUMMARY | 2025-01-14 17:40 | XMS_ITS | Encounter Summary ---
Author Organization [facility] Address [address] [place] [address] Care Team Providers Care Table Maker Name Role Phone Nikki Alcantar MD Primary Care Provider [phone] Michelle Norris MD Primary Care Provider Unavail able [facility] Primary Care Provider [facility] Michelle Norris MD Primary Care Provider Unavail [facility] Rosetta Diamond MD Primary Care Provider + Encounter Details Date Type Department Care Team Description 10/04/2009 Hospital Medical Records [address] [place] [address] Bandar Ryan [address] [facility] [address] [place] [address] Social History Tobacco Use Types Packs/Day Years [...] on filedocumented in this encounter Care Teams Table Maker Relationship Specialty Start Date End Date Nikki Alcantar MD [address] [place] [address]34 PCP - General 06/26/05 03/04/17 Michelle Norris MD [address] [place] [address] 56791 PCP - General Internal Medicine 03/05/17 03/16/21 [facility], Pcp [address] [place] [address] 64132 PCP - General Internal Medicine 03/17/21 05/04/21 Michelle Norris MD [address] [place] [address] 25695 PCP - General Internal Medicine 05/05/21 09/13/22 Rosetta Diamond MD [address] [place] [address]20 PCP - General Internal Medicine 09/14/22 documented as of this encounter
--- OUTSIDE RECORDS SUMMARY | 2025-01-14 17:40 | XMS_ITS | Encounter Summary ---
Author Organization [facility] Address [address] [place] [address] Care Team Providers Care National Van Owner Operator Name Role Phone Nikki Alcantar MD Primary Care Provider [phone] Michelle Norris MD Primary Care Provider Unavail [facility] Primary Care Provider [facility] Michelle Norris MD Primary Care Provider Unavail [facility] Rosetta Diamond MD Primary Care Provider + Encounter Details Date Type Department Care Team Description 10/30/2009 Hospital Medical Records [address] [place] [address] Jose Echols MD Social History Tobacco Use [...] on filedocumented in this encounter Care Teams National Van Owner Operator Relationship Specialty Start Date End Date Nikki Alcantar MD [address] [place] [address]96 PCP - General 06/26/05 03/04/17 Michelle Norris MD [address] [place] [address] 89167 PCP - General Internal Medicine 03/05/17 03/16/21 [facility], Pcp [address] [place] [address] 89641 PCP - General Internal Medicine 03/17/21 05/04/21 Michelle Norris MD [address] [place] [address] 08381 PCP - General Internal Medicine 05/05/21 09/13/22 Rosetta Diamond MD [address] [place] [address]20 PCP - General Internal Medicine 09/14/22 documented as of this encounter
--- OUTSIDE RECORDS SUMMARY | 2025-01-14 17:40 | XMS_ITS | Encounter Summary ---
Author Organization [facility] Address [address] [place] [address] Care Team Providers Care Dental Amalgam Processor Name Role Phone Michelle Norris MD Primary Care Provider Unavail able [facility] Primary Care Provider [facility] Michelle Lagos MD Primary Care Provider Unavail able Rosetta Diamond MD Primary Care Provider + Reason for Visit * Reason Onset Date Comments Call From Hospital 08/15/2019 Encounter Details Date Type Department Care Team Description 08/15/2019 Telephone Adult Medicine [address] [address] Michelle Norris MD Call From Hospital Social [...] AM EDT Information Needed Who is calling: [facility] Phych[facility] Information being requested? Calling [...] on filedocumented in this encounter Care Teams Dental Amalgam Processor Relationship Specialty Start Date End Date Michelle Norris MD PCP - General Internal Medicine 03/05/17 03/16/21 [facility] PCP - General Internal Medicine 03/17/21 05/04/21 Michelle Norris MD PCP - General Internal Medicine 05/05/21 09/13/22 Rosetta Diamond MD [address] [place] [address] PCP - General Internal Medicine 09/14/22 documented as of this encounter
--- OUTSIDE RECORDS SUMMARY | 2025-01-14 17:40 | XMS_ITS | Encounter Summary ---
Author Organization [facility] Address [address] [place] [address] Care Team Providers Care Cat Skinner Name Role Phone Nikki Alcantar MD Primary Care Provider [phone] Michelle Norris MD Primary Care Provider Unavail [facility] Primary Care Provider [facility] Michelle Norris MD Primary Care Provider Unavail [facility] Rosetta Diamond MD Primary Care Provider + Encounter Details Date Type Department Care Team Description 2009 Hospital Medical Records [address] [place] [address] Jose G Santos MD Social History Tobacco [...] on filedocumented in this encounter Care Teams Cat Skinner Relationship Specialty Start Date End Date Nikki Alcantar MD [address] [place] [address] 28727 PCP - General 06/26/05 03/04/17 Michelle Norris MD [address] [place] [address] 41341 PCP - General Internal Medicine 03/05/17 03/16/21 [facility], Pcp [address] [place] [address] 80860 PCP - General Internal Medicine 03/17/21 05/04/21 Michelle Norris MD [address] [place] [address] 11932 PCP - General Internal Medicine 05/05/21 09/13/22 Rosetta Diamond MD [address] [place] [address] PCP - General Internal Medicine 09/14/22 documented as of this encounter
--- OUTSIDE RECORDS SUMMARY | 2025-01-14 17:40 | XMS_ITS | Encounter Summary ---
Author Organization [facility] Address [address] [place] [address] Care Team Providers Care Floor Nurse Name Role Phone Nikki Alcantar MD Primary Care Provider [phone] Michelle Norris MD Primary Care Provider Unavail [facility] Primary Care Provider [facility] Michelle Norris MD Primary Care [facility] Rosetta Diamond MD Primary Care Provider + Encounter Details Date Type Department Care Team Description 05/12/2010 Hospital Medical Records [address] [place] [address] RaúlRaquelSagar Social History Tobacco Use Types Packs/Day [...] on filedocumented in this encounter Care Teams Floor Nurse Relationship Specialty Start Date End Date Nikki Alcantar MD [address] [place] [address]268 PCP - General 06/26/05 03/04/17 Michelle Norris MD [address] [place] [address] PCP - General Internal Medicine 03/05/17 03/16/21 [facility], Pcp [address] [place] [address] PCP - General Internal Medicine 03/17/21 05/04/21 Michelle Norris MD [address] [place] [address] [place] [address] PCP - General Internal Medicine 05/05/21 09/13/22 Rosetta Diamond MD [address] [place], [place] [phone] PCP - General Internal Medicine 09/14/22 documented as of this encounter
--- OUTSIDE RECORDS SUMMARY | 2025-01-14 17:40 | XMS_ITS | Encounter Summary ---
Author Organization [facility] Address [address] [place] [address] Care Team Providers Care Addictions Therapist Name Role Phone Rosetta Diamond MD Primary Care Provider + Reason for Visit * Reason Onset Date Comments Card Decorator Feedback 05/01/2024 Urogynecology Encounter Details Date Type Department Care Team Description 05/01/2024 Telephone OBGYN - [place] [address] [place], [place] [phone] Rebecca Kimbrough CNM [address] [place], [place] [phone] Card Decorator Feedback (Urogynecology) Social History Tobacco Use Types [...] on filedocumented in this encounter Care Teams Addictions Therapist Relationship Specialty Start Date End Date Rosetta Diamond MD [address] [place] [address] PCP - General Internal Medicine 09/14/22 documented as of this encounter
--- OUTSIDE RECORDS SUMMARY | 2025-01-14 17:40 | XMS_ITS | Encounter Summary ---
Author Organization [facility] Address [address] [place] [address] Care Team Providers Care Paper Slitter Name Role Phone Nikki Alcantar MD Primary Care Provider [phone] Michelle Norris MD Primary Care Provider Unavail [facility] Primary Care Provider [facility] Michelle Norris MD Primary Care Provider Unavail [facility] Rosetta Diamond MD Primary Care Provider + Encounter Details Date Type Department Care Team Description 10/28/2009 Hospital Medical Records [address] [place] [id number] Jose Echols MD Social History Tobacco Use [...] filedocumented in this encounter Care Teams Paper Slitter Relationship Specialty Start Date End Date Nikki Alcantar MD [address] [place] [address] 75449 PCP - General 06/26/05 03/04/17 Michelle Norris MD [address] [place] [address] 86722 PCP - General Internal Medicine 03/05/17 03/16/21 [facility], Pcp [address] [place] [address] 81908 PCP - General Internal Medicine 03/17/21 05/04/21 Michelle Norris MD [address] [place] [address] 52090 PCP - General Internal Medicine 05/05/21 09/13/22 Rosetta Diamond MD [address] [place] [address] 01020 PCP - General Internal Medicine 09/14/22 documented as of this encounter
--- OUTSIDE RECORDS SUMMARY | 2025-01-14 17:40 | XMS_ITS | Encounter Summary ---
Author Organization [facility] Address [address] [place] [address] Care Team Providers Care Office Coordinator Receptionist Name Role Phone Nikki Alcantar MD Primary Care Provider [phone] Michelle Norris MD Primary Care Provider Unavail [facility] Primary Care Provider [facility] Michelle Norris MD Primary Care Provider Unavail [facility] Rosetta Diamond MD Primary Care Provider + Encounter Details Date Type Department Care Team Description 08/19/2009 Hospital Medical Records [address] [place] [address] Sumeet Yadav Social History Tobacco Use Types [...] on filedocumented in this encounter Care Teams Office Coordinator Receptionist Relationship Specialty Start Date End Date Nikki Alcantar MD [address] [place] [address] 95218 PCP - General 06/26/05 03/04/17 Michelle Norris MD [address] [place] [address] PCP - General Internal Medicine 03/05/17 03/16/21 [facility], Pcp [address] [place] [address] PCP - General Internal Medicine 03/17/21 05/04/21 Michelle Norris MD [address] [place] [address] [place] [address] PCP - General Internal Medicine 05/05/21 09/13/22 Rosetta Diamond MD [address] [place], [place] [phone] PCP - General Internal Medicine 09/14/22 documented as of this encounter
--- OUTSIDE RECORDS SUMMARY | 2025-01-14 17:40 | XMS_ITS | Encounter Summary ---
Author Organization [facility] Address [address] [place] [address] Care Team Providers Care Acquisitions Assistant Name Role Phone Michelle Norris MD Primary Care Provider [facility] Pcp Primary Care Provider Unavailabl e Michelle Norris MD Primary Care Provider Unavail able Rosetta Diamond MD Primary Care Provider + Encounter Details Date Type Department Care Team Description 08/14/2019 Hospital Medical Records [address] [place] [address] [phone] Miles Shah MD Social History Tobacco Use [...] filedocumented in this encounter Care Teams Acquisitions Assistant Relationship Specialty Start Date End Date Michelle Norris MD PCP - General Internal Medicine 03/05/17 03/16/21 [facility], Pcp PCP - General Internal Medicine 03/17/21 05/04/21 Michelle Norris MD PCP - General Internal Medicine 05/05/21 09/13/22 Rosetta Diamond MD [address] [place] [address] 387[address] PCP - General Internal Medicine 09/14/22 documented as of this encounter
--- OUTSIDE RECORDS SUMMARY | 2025-01-14 17:40 | XMS_ITS | Encounter Summary ---
Author Organization [facility] Address [address] [place] [address] Care Team Providers Care Jet Blade Polisher Name Role Phone Nikki Alcantar MD Primary Care Provider [phone] Michelle Norris MD Primary Care Provider Unavail [facility] Primary Care Provider [facility] Michelle Norris MD Primary Care Provider [facility] Rosetta Diamond MD Primary Care Provider + Encounter Details Date Type Department Care Team Description 11/15/2010 Business Doc Medical Records [address] [place] [address] [phone] Abstract, Provider Social History Tobacco Use Types [...] on filedocumented in this encounter Care Teams Jet Blade Polisher Relationship Specialty Start Date End Date Nikki Alcantar MD [address] [place] [address] 569[address] PCP - General 06/26/05 03/04/17 Michelle Norris MD [address] [place] [address] PCP - General Internal Medicine 03/05/17 03/16/21 [facility], Pcp [address] [place] [address] PCP - General Internal Medicine 03/17/21 05/04/21 Michelle Norris MD [address] [place] [address] PCP - General Internal Medicine 05/05/21 09/13/22 Rosetta Diamond MD [address] [place] [address] PCP - General Internal Medicine 09/14/22 documented as of this encounter
--- OUTSIDE RECORDS SUMMARY | 2025-01-14 17:40 | XMS_ITS | Encounter Summary ---
Author Organization [facility] Address [address] [place] [address] Care Team Providers Care Bulking Machine Operator Name Role Phone Nikki Alcantar MD Primary Care Provider [phone] Michelle Norris MD Primary Care Provider Unavail [facility] Primary Care Provider [facility] Michelle Norris MD Primary Care Provider Unavail [facility] Rosetta Diamond MD Primary Care Provider + Encounter Details Date Type Department Care Team Description 10/30/2009 Hospital Medical Records [address] [place] [phone] Reena Dominguez Social History Tobacco Use Types [...] on filedocumented in this encounter Care Teams Bulking Machine Operator Relationship Specialty Start Date End Date Nikki Alcantar MD [address] [place] [address] 04268 PCP - General 06/26/05 03/04/17 Michelle Norris MD [address] [place] [address] PCP - General Internal Medicine 03/05/17 03/16/21 [facility], Pcp [address] [place] [address] PCP - General Internal Medicine 03/17/21 05/04/21 Michelle Norris MD [address] [place] [address] [place] [address] PCP - General Internal Medicine 05/05/21 09/13/22 Rosetta Diamond MD [address] [place], [place] [phone] PCP - General Internal Medicine 09/14/22 documented as of this encounter
--- OUTSIDE RECORDS SUMMARY | 2025-01-14 17:40 | XMS_ITS | Encounter Summary ---
Author Organization [facility] Address [address] [place] [address] Care Team Providers Care Clinical Geneticist Name Role Phone Rosetta Diamond MD Primary Care Provider + Reason for Visit * Reason Onset Date Comments hospital follow up 10/12/2022 Encounter Details Date Type Department Care Team Description 10/12/2022 Telephone Adult Medicine [facility] [address] [place] [address] [phone] Rosetta Diamond MD [address] [place] [address] [phone] hospital follow up Social History Tobacco Use [...] filedocumented in this encounter Care Teams Clinical Geneticist Relationship Specialty Start Date End Date Rosetta Diamond MD [address] [place] [address] 84683 PCP - General Internal Medicine 09/14/22 documented as of this encounter
--- OUTSIDE RECORDS SUMMARY | 2025-01-14 17:40 | XMS_ITS | Encounter Summary ---
Author Organization [facility] Address [address] [place] [address] Care Team Providers Care Medical Surgical Tech Name Role Phone Nikki Alcantar MD Primary Care Provider Michelle Norris MD Primary Care Provider Unavail [facility] Primary Care Provider [facility] Michelle Norris MD Primary Care Provider Unavail [facility] Rosetta Diamond MD Primary Care Provider + Encounter Details Date Type Department Care Team Description 01/01/2014 Lye Boiler Report Medical Records [address] [place] [address]80 Julio Paredes MD Social History Tobacco Use [...] filedocumented in this encounter Care Teams Medical Surgical Tech Relationship Specialty Start Date End Date Nikki Alcantar MD [address] [place] [address] 95653 PCP - General 06/26/05 03/04/17 Michelle Norris MD [address] [place] [address] PCP - General Internal Medicine 03/05/17 03/16/21 [facility], Pcp [address] [place] [address] 97603 PCP - General Internal Medicine 03/17/21 05/04/21 Michelle Norris MD [address] [place] [address] [place] [address] PCP - General Internal Medicine 05/05/21 09/13/22 Rosetta Diamond MD [address] [place], [place] [phone] PCP - General Internal Medicine 09/14/22 documented as of this encounter
--- OUTSIDE RECORDS SUMMARY | 2025-01-14 17:40 | XMS_ITS | Encounter Summary ---
Author Organization [facility] Address [address] [place] [address] Care Team Providers Care Registered Nurse Supervisor Name Role Phone Nikki Alcantar MD Primary Care Provider [phone] Michelle Norris MD Primary Care Provider Unavail [facility] Primary Care Provider [facility] Michelle Norris MD Primary Care Provider Unavail [facility] Rosetta Diamond MD Primary Care Provider + Encounter Details Date Type Department Care Team Description 07/07/2013 Telephone Adult Medicine [address] [phone] Nikki Alcantar MD [address] [place] [address] [phone] Social History Tobacco Use Types Packs/Day Years [...] on filedocumented in this encounter Care Teams Registered Nurse Supervisor Relationship Specialty Start Date End Date Nikki Alcantar MD [address] [place] [address] [phone] PCP - General 06/26/05 03/04/17 Michelle Norris MD [address] [place] [address] 53657 PCP - General Internal Medicine 03/05/17 03/16/21 [facility], Pcp [address] [place] [address] 12803 PCP - General Internal Medicine 03/17/21 05/04/21 Michelle Norris MD [address] [place] [address] PCP - General Internal Medicine 05/05/21 09/13/22 Rosetta Diamond MD [address] [place] [address] 89057 PCP - General Internal Medicine 09/14/22 documented as of this encounter
--- OUTSIDE RECORDS SUMMARY | 2025-01-14 17:40 | XMS_ITS | Encounter Summary ---
Author Organization [facility] Address [address] [place] [address] Care Team Providers Care Dog Breeder Name Role Phone Nikki Alcantar MD Primary Care Provider [phone] Michelle Norris MD Primary Care Provider Unavail [facility] Primary Care Provider [facility] Michelle Norris MD Primary Care Provider Unavail [facility] Rosetta Diamond MD Primary Care Provider + Encounter Details Date Type Department Care Team Description 12/16/2013 Hospital Medical Records [address] [place] [address] Marlen Grande Social History Tobacco Use Types [...] on filedocumented in this encounter Care Teams Dog Breeder Relationship Specialty Start Date End Date Nikki Alcantar MD [address] [place] [address] 24764 PCP - General 06/26/05 03/04/17 Michelle Norris MD [address] [place] [address] 56153 PCP - General Internal Medicine 03/05/17 03/16/21 [facility], Pcp [address] [place] [address] 79067 PCP - General Internal Medicine 03/17/21 05/04/21 Michelle Norris MD [address] [place] [address] 59912 PCP - General Internal Medicine 05/05/21 09/13/22 Rosetta Diamond MD [address] [place] [address] 01020 PCP - General Internal Medicine 09/14/22 documented as of this encounter
--- OUTSIDE RECORDS SUMMARY | 2025-01-14 17:40 | XMS_ITS | Encounter Summary ---
Author Organization [facility] Address [address] [place] [address] Care Team Providers Care Wood Tank Builder Name Role Phone Michelle Norris MD Primary Care Provider [facility]cp [facility] Michelle Norris MD Primary Care Provider Unavail able Rosetta Diamond MD Primary Care Provider + Encounter Details Date Type Department Care Team Description 08/08/2019 Old Medical Records Medical Records [address] [place] [address] 0[address]50 Abstract, Provider Social History Tobacco Use Types [...] on filedocumented in this encounter Care Teams Wood Tank Builder Relationship Specialty Start Date End Date Michelle Norris MD PCP - General Internal Medicine 03/05/17 03/16/21 [facility], Pcp PCP - General Internal Medicine 03/17/21 05/04/21 Michelle Norris MD PCP - General Internal Medicine 05/05/21 09/13/22 Rosetta Diamond MD [address] [place] [address] 03608 PCP - General Internal Medicine 09/14/22 documented as of this encounter
--- OUTSIDE RECORDS SUMMARY | 2025-01-14 17:40 | XMS_ITS | Encounter Summary ---
Author Organization [facility] Address [address] [place] [address] Care Team Providers Care Cream Cheese Maker Name Role Phone Nikki Alcantar MD Primary Care Provider [phone] Michelle Norris MD Primary Care Provider Unavail [facility] Primary Care Provider [facility] Michelle Norris MD Primary Care Provider Unavail [facility] Rosetta Diamond MD Primary Care Provider + Encounter Details Date Type Department Care Team Description 07/13/2009 Hospital Medical Records [address] [place] [address]142 Colon, Anabel Social History Tobacco Use Types [...] on filedocumented in this encounter Care Teams Cream Cheese Maker Relationship Specialty Start Date End Date Nikki Alcantar MD [address] [place] [address] 78599 PCP - General 06/26/05 03/04/17 Michelle Norris MD [address] [place] [address] 95633 PCP - General Internal Medicine 03/05/17 03/16/21 [facility]cp [address] [place] [address] 13768 PCP - General Internal Medicine 03/17/21 05/04/21 Michelle Norris MD [address] [place] [address] 19339 PCP - General Internal Medicine 05/05/21 09/13/22 Rosetta Diamond MD [address] [place] [address] PCP - General Internal Medicine 09/14/22 documented as of this encounter
--- OUTSIDE RECORDS SUMMARY | 2025-01-14 17:40 | XMS_ITS | Encounter Summary ---
Author Organization [facility] Address [address] [place] [address] Care Team Providers Care Machine Tool Mechanic Name Role Phone Michelle Norris MD Primary Care Provider Unavail able [facility] Michelle Lagos MD Primary Care Provider Unavail able Rosetta Diamond MD Primary Care Provider + Reason for Visit * Reason Onset Date Comments er follow up 07/24/2019 pt [facility] at [facility] for SI and depression Encounter Details Date Type Department Care Team Description 07/24/2019 Telephone Adult Medicine [address] [address] Michelle Norris MD er follow up (pt seen at [facility] for SI and depression) Social [...] filedocumented in this encounter Care Teams Machine Tool Mechanic Relationship Specialty Start Date End Date Michelle Norris MD PCP - General Internal Medicine 03/05/17 03/16/21 [facility], Pcp PCP - General Internal Medicine 03/17/21 05/04/21 Michelle Norris MD PCP - General Internal Medicine 05/05/21 09/13/22 Rosetta Diamond MD [address] [place] [address] 22087 PCP - General Internal Medicine 09/14/22 documented as of this encounter
--- OUTSIDE RECORDS SUMMARY | 2025-01-14 17:40 | XMS_ITS | Encounter Summary ---
Author Organization [facility] Address [address] [place] [address] Care Team Providers Care Molecular Technologist Name Role Phone Nikki Alcantar MD Primary Care Provider [phone] Michelle Norris MD Primary Care Provider Unavail [facility] Primary Care Provider [facility] Michelle Norris MD Primary Care Provider Unavail [facility] Rosetta Diamond MD Primary Care Provider + Encounter Details Date Type Department Care Team Description 04/23/2016 Hospital Medical Records [address] [place] [address] [phone] Rod Mccoy MD Social History Tobacco Use [...] on filedocumented in this encounter Care Teams Molecular Technologist Relationship Specialty Start Date End Date Nikki Alcantar MD [address] [place] [address] 55715 PCP - General 06/26/05 03/04/17 Michelle Norris MD [address] [place] [address] 38500 PCP - General Internal Medicine 03/05/17 03/16/21 [facility], Pcp [address] [place] [address] 95540 PCP - General Internal Medicine 03/17/21 05/04/21 Michelle Norris MD [address] [place] [address] 81327 PCP - General Internal Medicine 05/05/21 09/13/22 Rosetta Diamond MD [address] [place] [address] 01020 PCP - General Internal Medicine 09/14/22 documented as of this encounter
--- OUTSIDE RECORDS SUMMARY | 2025-01-14 17:40 | XMS_ITS | Encounter Summary ---
Author Organization [facility] Address [address] [place] [address] Care Team Providers Care Retail Sales Advisor Name Role Phone Nikki Alcantar MD Primary Care Provider [phone] Michelle Norris MD Primary Care Provider Unavail [facility] Michelle Norris MD Primary Care Provider Unavail able Rosetta Diamond MD Primary Care Provider + Reason for Visit * Reason Onset Date Comments refill request 07/18/2011 Encounter Details Date Type Department Care Team Description 07/18/2011 Refill Adult Medicine [address] [phone] Nikki Alcantar MD [address] [place] [address] [phone] refill request Social History Tobacco Use Types [...] NO Patients current insurance carrier is: Payor: [place]ARE-[place] Plan: [place]ARE[employer] Product Type: MEDICARE [id number] documented in this encounter Plan of Treatment Not on file documented as of this encounter Visit Diagnoses Not on filedocumented in this encounter Care Teams Retail Sales Advisor Relationship Specialty Start Date End Date Nikki Alcantar MD [address] [place] [address] 82852 PCP - General 06/26/05 03/04/17 Michelle Norris MD [address] [place] [address] 79659 PCP - General Internal Medicine 03/05/17 03/16/21 [facility], Pcp [address] [place] [address] 88461 PCP - General Internal Medicine 03/17/21 05/04/21 Michelle Norris MD [address] [place] [address] 87057 PCP - General Internal Medicine 05/05/21 09/13/22 Rosetta Diamond MD [address] [place] [address] [phone] PCP - General Internal Medicine 09/14/22 documented as of this encounter
--- OUTSIDE RECORDS SUMMARY | 2025-01-14 17:40 | XMS_ITS | Clinical Summary ---
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 METHOD 11/25/2024 9:55 PM EST [facility] Parainfluenza Virus 3 Not [...] 9:55 PM EST [facility] Rhinovirus/Entero virus Not Detected Not Detected LAB MICROBIOLOGY METHOD 11/25/2024 9:55 PM EST [facility] Bordetella pertussis Not Detected Not Detected LAB MICROBIOLOGY METHOD 11/25/2024 9:55 PM EST [facility] Bordetella parapertussis Not Detected [...] 8:24 PM EST 11/25/2024 8:52 PM EST [facility] - 11/25/2024 9:55 PM EST Testing was performed using the [employer] Respiratory Pathogen PCR Assay. All results must [...] Jimmy Alfonso MD LAB MICROBIOLOGY - GENERAL ORDE HEYDI Final Result [facility] [address] [place] [address], * [place] top urine tube (11/02/2024 9:06 PM EST) Only the most recent of2 resultswithin the time period is included. Extra Tube Hold for add-ons. 11/03/2024 12:01 AM EST [facility] Comment:Auto resulted. Urine Urine specimen obtained by clean catch procedure / Unknown 11/02/2024 9:06 PM EST 11/02/2024 10:06 PM EST us Jimmy Alfonso MD LAB URINE ORDERABLES Final Resu lt [facility] [address] [place] [address], [place] [phone] * XR Thoracic Spine 2 Views (10/20/2024 2:33 AM EST) Anatomical Region Laterality Modality Spine, T-spine Radiographic Renata ging 10/20/2024 8:50 AM EST Impressions 10/20/2024 8:52 AM EST The thoracic spine is moderately kyphotic as also seen on 09/07/2024. Otherwise, normal examination, without acute findings. Code 61722 -------- FINAL REPORT -------- Dictated By: Jefe Agrawal Dictated Date: 10/20/2024 08:50 ET Assigned Physician: Jefe Agrawal Reviewed and Electronically Signed By: Jefe Agrawal Signed Date: 10/20/2024 08:52 ET Workstation ID: [id number] Transcribed By: Self Edit Transcribed Date: 10/20/2024 [...] as also seen on the chest radiograph cgbtrjudh02/24/2024. The alignment of the bony structures is otherwise anatomic. Nofracture or osteolytic or osteoblastic lesion is seen. The disc spaces arewell-maintained. IMPRESSION: The thoracic spine is moderately kyphotic as also seen on 09/07/2024.Otherwise, normal examination, without acute findings. Code 67672 -------- FINAL REPORT -------- Dictated By: Jefe Agrawal Dictated Date: 10/20/2024 08:50 ET Assigned Physician: Jefe Agrawal Reviewed and Electronically Signed By: Jefe Agrawal Signed Date: 10/20/2024 08:52 ET Workstation ID: [id number] Transcribed By: Self Edit Transcribed Date: 10/20/2024 08:50 ET us Scot Rigoberto Massey MD IMG XR PROCEDURES Final Result * XR Lumbar Spine 2-3 Views (10/20/2024 2:32 AM EST) Anatomical Region Laterality Modality Spine, L-spine Radiographic Renata ging 10/20/2024 8:16 AM EST Impressions 10/20/2024 8:18 AM EST Impression: No evidence of lumbar spine fracture or subluxation. [place] PA ([id number]) -------- FINAL REPORT -------- Dictated By: Eloina Mayo Dictated Date: 10/20/2024 08:16 ET Assigned Physician: Eloina Mayo Reviewed and Electronically Signed By: Eloina Mayo Signed Date: 10/20/2024 08:18 ET Workstation ID: [id number] Transcribed By: Self Edit Transcribed Date: 10/20/2024 [...] of lumbar spine fracture or subluxation. Telerad MD ([id number]) -------- FINAL REPORT -------- Dictated By: Eloina Mayo Dictated Date: 10/20/2024 08:16 ET Assigned Physician: Eloina Mayo Reviewed and Electronically Signed By: Eloina Mayo Signed Date: 10/20/2024 08:18 ET Workstation ID: [id number] Transcribed By: Self Edit Transcribed Date: 10/20/2024 08:16 ET [facility] Rigoberto Massey MD IMG XR PROCEDURES [...] by: Delmy Greenwood MD on 10/20/2024 02:54:23 us Alberto Massey MD IMG CT PROCEDURES Final [...] RESULTING AGENCY - 04/28/2024 11:46 AM EDT [id number] THINPREP PAP, IMAGED: NEGATIVE FOR SQUAMOUS INTRAEPITHELIAL LESION AND MALIGNANCY GREG LANZA(ASCP) (CASE ELECTRONICALLY SIGNED 04 28 2024) RESULT OF APTIMA HIGH RISK HPV ASSAY: HIGH RISK HPV: ??NEGATIVE (SEROTYPES 16,18,31,33,35,39,45,51,52,56,58,59,66,68) COMPLETED ON 2024-04-24 ADEQUACY: SATISFACTORY ENDOCERVICAL/TRANSFORMATION ZONE COMPONENT PRESENT. SOURCE: THINPREP PAP HPV ANY DX: ??REFLEX 16 AND 18, CERVICAL, IMAGED CLINICAL INFORMATION: HPV ANY DIAGNOSIS. PAP HX NEGATIVE, [Z01.419] Rebecca MORRISON LAB CYTOLOGY ORDERABLES Final Result HISTORICAL TESTING [...] Documents on File Type Date Recorded Patient Party Host Expl anation Health Care Decision (hx) 07/03/2023 [...] (hx) 07/03/2023 AD MARTINEZ DIRECTIVE Care Teams Coal Shoveler Relationship Specialty Start Date End Date Maribel Marquez [address] [place] [address] PCP - General 09/08/24
--- OUTSIDE RECORDS SUMMARY | 2025-01-14 17:40 | XMS_ITS | Encounter Summary ---
Author Organization [facility] Address [address] [place] [address] Care Team Providers Care Dry Talc Racker Name Role Phone Michelle Norris MD Primary Care Provider Unavail able [facility], P[facility] Michelle Norris MD Primary Care Provider Unavail able Rosetta Diamond MD Primary Care Provider + Encounter Details Date Type Department Care Team Description 11/19/2017 Hospital Medical Records [address] [place] [phone] Carlos Landrum Social History Tobacco Use Types [...] on filedocumented in this encounter Care Teams Dry Talc Racker Relationship Specialty Start Date End Date Michelle Norris MD PCP - General Internal Medicine 03/05/17 03/16/21 [facility], Pcp PCP - General Internal Medicine 03/17/21 05/04/21 Michelle Norris MD PCP - General Internal Medicine 05/05/21 09/13/22 Rosetta Diamond MD [address] [place] [address] PCP - General Internal Medicine 09/14/22 documented as of this encounter
--- OUTSIDE RECORDS SUMMARY | 2025-01-14 17:40 | XMS_ITS | Encounter Summary ---
Author Organization [facility] Address [address] [place] [address] Care Team Providers Care Planner Intern Name Role Phone Nikki Alcantar MD Primary Care Provider [phone] Michelle Norris MD Primary Care Provider Unavail [facility] Primary Care Provider [facility] Michelle Norris MD Primary Care Provider Unavail able Rosetta Diamond MD Primary Care Provider + Reason for Visit * Reason Onset Date Comments Faxed Order 04/26/2016 Encounter Details Date Type Department Care Team Description 04/26/2016 Telephone Adult Medicine [facility] [address] [place] [address] [phone] Nikki Alcantar MD [address] [place] [address] [phone] Faxed Order Social History Tobacco Use Types [...] on filedocumented in this encounter Care Teams Planner Intern Relationship Specialty Start Date End Date Nikki Alcantar MD [address] [place] [address] PCP - General 06/26/05 03/04/17 Michelle Norris MD [address] [place] [address] PCP - General Internal Medicine 03/05/17 03/16/21 [place] [address] PCP - General Internal Medicine 03/17/21 05/04/21 Michelle Norris MD [address] [place] [address] PCP - General Internal Medicine 05/05/21 09/13/22 Rosetta Diamond MD [address] [place] [address] PCP - General Internal Medicine 09/14/22 documented as of this encounter
--- OUTSIDE RECORDS SUMMARY | 2025-01-14 17:40 | XMS_ITS | Encounter Summary ---
Author Organization [facility] Address [address] [place] [address] Care Team Providers Care User Support Analyst Supervisor Name Role Phone Nikki Alcantar MD Primary Care Provider [phone] Michelle Norris MD Primary Care Provider Unavail [facility] Primary Care Provider [facility] Michelle Norris MD Primary Care Provider Unavail [facility] Rosetta Diamond MD Primary Care Provider + Encounter Details Date Type Department Care Team Description 09/30/2010 Hospital Medical Records [address] [place] [address] María Elena Shelly Social History Tobacco Use [...] on filedocumented in this encounter Care Teams User Support Analyst Supervisor Relationship Specialty Start Date End Date Nikki Alcantar MD [address] [place] [address] PCP - General 06/26/05 03/04/17 Michelle Nroris MD [address] [place] [address] PCP - General Internal Medicine 03/05/17 03/16/21 [facility], Pcp [address] [place] [address] PCP - General Internal Medicine 03/17/21 05/04/21 Michelle Norris MD [address] [place], [place] [phone] PCP - General Internal Medicine 05/05/21 09/13/22 Rosetta Diamond MD [address] [place] [address] PCP - General Internal Medicine 09/14/22 documented as of this encounter
--- OUTSIDE RECORDS SUMMARY | 2025-01-14 17:40 | XMS_ITS | Encounter Summary ---
Author Organization [facility] Address [address] [place] [address] Care Team Providers Care Dishcloth Folder Name Role Phone Nikki Alcantar MD Primary Care Provider [phone] Michelle Norris MD Primary Care Provider Unavail able [facility] Michelle Norris MD Primary Care Provider Unavail able Rosetta Diamond MD Primary Care Provider + Reason for Visit * Reason Onset Date Comments Call From Hospital 05/11/2016 Encounter Details Date Type Department Care Team Description 05/11/2016 Telephone Adult Medicine [address] [phone] Nikki Alcantar MD [address] [place] [address] [phone] Call From Hospital Social History Tobacco Use [...] DR. Alcantar patient has been admitted to [facility] as of 05/09/16 . documented in this encounter Plan of Treatment Not on file documented as of this encounter Visit Diagnoses Not on filedocumented in this encounter Care Teams Dishcloth Folder Relationship Specialty Start Date End Date Nikki Alcantar MD [address] [place] [address] PCP - General 06/26/05 03/04/17 Michelle Norris MD [address] [place] [address] PCP - General Internal Medicine 03/05/17 03/16/21 [place] [phone] PCP - General Internal Medicine 03/17/21 05/04/21 Michelle Norris MD [address] [place] [address] PCP - General Internal Medicine 05/05/21 09/13/22 Rosetta Diamond MD [address] [place], [place] [phone] PCP - General Internal Medicine 09/14/22 documented as of this encounter
--- OUTSIDE RECORDS SUMMARY | 2025-01-14 17:40 | XMS_ITS | Encounter Summary ---
Author Organization [facility] Address [address] [place] [address] Care Team Providers Care Lockstitch Machine Operator Name Role Phone Nikki Alcantar MD Primary Care Provider [phone] Michelle Norris MD Primary Care Provider Unavail [facility] Primary Care Provider [facility] Michelle Norris MD Primary Care Provider Unavail [facility] Rosetta Diamond MD Primary Care Provider + Encounter Details Date Type Department Care Team Description 05/24/2016 Hospital Medical Records [address] [place] [phone] Chuck Dave MD Social History Tobacco Use [...] on filedocumented in this encounter Care Teams Lockstitch Machine Operator Relationship Specialty Start Date End Date Nikki Alcantar MD [address] [place] [address] PCP - General 06/26/05 03/04/17 Michelle Norris MD [address] [place] [address] PCP - General Internal Medicine 03/05/17 03/16/21 [facility], Pcp [address] [place] [address] PCP - General Internal Medicine 03/17/21 05/04/21 Michelle Norris MD [address] [place] [address] PCP - General Internal Medicine 05/05/21 09/13/22 Rosetta Diamond MD [address] [place] [address] PCP - General Internal Medicine 09/14/22 documented as of this encounter
--- OUTSIDE RECORDS SUMMARY | 2025-01-14 17:40 | XMS_ITS | Encounter Summary ---
Author Organization [facility] Address [address] [place] [address] Care Team Providers Care Pharmacoepidemiologist Name Role Phone Nikki Alcantar MD Primary Care Provider [phone] Michelle Norris MD Primary Care Provider Unavail able [facility] Primary Care Provider [facility] Michelle Norris MD Primary Care Provider Unavail [facility] Rosetta Diamond MD Primary Care Provider + Encounter Details Date Type Department Care Team Description 01/28/2014 [facility] Medical Records [address] [place] [phone] Abstract, Provider Social History Tobacco Use Types [...] on filedocumented in this encounter Care Teams Pharmacoepidemiologist Relationship Specialty Start Date End Date Nikki Alcantar MD [address] [place] [address] PCP - General 06/26/05 03/04/17 Michelle Norris MD [address] [place] [address] PCP - General Internal Medicine 03/05/17 03/16/21 [facility], Pcp [address] [place] [address] PCP - General Internal Medicine 03/17/21 05/04/21 Michelle Norris MD [address] [place] [address] PCP - General Internal Medicine 05/05/21 09/13/22 Rosetta Diamond MD [address] [place], [place] [phone] PCP - General Internal Medicine 09/14/22 documented as of this encounter
--- OUTSIDE RECORDS SUMMARY | 2025-01-14 17:41 | XMS_ITS | Encounter Summary ---
Author Organization [facility] Address [address] [place] [address] Care Team Providers Care Cloth Drier Name Role Phone Nikki Alcantar MD Primary Care Provider [phone] Michelle Norris MD Primary Care Provider Unavail [facility] Primary Care Provider [facility] Michelle Norris MD Primary Care Provider Unavail [facility] Rosetta Diamond MD Primary Care Provider + Encounter Details Date Type Department Care Team Description 11/23/2016 Hospital Medical Records [address] [place] [phone] Marlen Grande Social History Tobacco Use Types [...] filedocumented in this encounter Care Teams Cloth Drier Relationship Specialty Start Date End Date Nikki Alcantar MD [address] [place] [address] PCP - General 06/26/05 03/04/17 Michelle Norris MD [address] [place] [address] PCP - General Internal Medicine 03/05/17 03/16/21 [facility], Pcp [address] [place] [address] PCP - General Internal Medicine 03/17/21 05/04/21 Michelle Norris MD [address] [place] [address] PCP - General Internal Medicine 05/05/21 09/13/22 Rosetta Diamond MD [address] [place] [address] PCP - General Internal Medicine 09/14/22 documented as of this encounter
--- OUTSIDE RECORDS SUMMARY | 2025-01-14 17:41 | XMS_ITS | Encounter Summary ---
Author Organization [facility] Address [address] [place] [address] Care Team Providers Care Cork Insulator Name Role Phone Nikki Alcantar MD Primary Care Provider [phone] Michelle Norris MD Primary Care Provider Unavail able [facility] Primary Care Provider [facility] Michelle Norris MD Primary Care Provider Unavail able Rosetta Diamond MD Primary Care Provider + Reason for Visit * Reason Onset Date Comments VNA Call 11/24/2016 Encounter Details Date Type Department Care Team Description 11/24/2016 Telephone Adult Medicine [address] [phone] Nikki Alcantar MD [address] [place] [address] [phone] [facility]NA Call Social History Tobacco Use Types [...] encounter Miscellaneous Notes * Telephone Encounter - Genaro Cee - 12/21/2016 4:34 PM EST Viki * Telephone Encounter - Marilee Kiran L.P.N. - 11/24/2016 10:22 AM EST FYI only * Telephone Encounter - Wendy Drew - 11/24/2016 9:58 AM EST [facility] CALL Which [facility] office is calling? [facility] Full name of caller: Ros The caller is [employer] Is the caller at the patients home?: NO Reason for call: Ros is calling to let Nikki Alcantar know that the patient is there with them Does caller need an urgent call back? NO Was CONTACT Telephone # obtained above?: YES Fax #: documented in this encounter Plan of Treatment Not on file documented as of this encounter Visit Diagnoses Not on filedocumented in this encounter Care Teams Cork Insulator Relationship Specialty Start Date End Date Nikki Alcantar MD [address] [place] [address] PCP - General 06/26/05 03/04/17 Michelle Norris MD [address] [place] [address] PCP - General Internal Medicine 03/05/17 03/16/21 [facility] [place] [address] PCP - General Internal Medicine 03/17/21 05/04/21 Michelle Norris MD [address] [place] [address] PCP - General Internal Medicine 05/05/21 09/13/22 Rosetta Diamond MD [address] [place] [address] PCP - General Internal Medicine 09/14/22 documented as of this encounter
--- OUTSIDE RECORDS SUMMARY | 2025-01-14 17:41 | XMS_ITS | Encounter Summary ---
Author Organization [facility] Address [address] [place] [address] Care Team Providers Care Packing Tractor Machine Operator Name Role Phone Nikki Alcantar MD Primary Care Provider [phone] Michelle Norris MD Primary Care Provider Unavail able [facility] Michelle Norris MD Primary Care Provider Unavail able Rosetta Diamond MD Primary Care Provider + Reason for Visit * Reason Onset Date Comments VNA Call 08/18/2016 Encounter Details Date Type Department Care Team Description 08/18/2016 Telephone Adult Medicine [address] [phone] Nikki Alcantar MD [address] [place] [address] [phone] VNA Call Social History Tobacco Use Types [...] on filedocumented in this encounter Care Teams Packing Tractor Machine Operator Relationship Specialty Start Date End Date Nikki Alcantar MD [address] [place] [address] PCP - General 06/26/05 03/04/17 Michelle Norris MD [address] [place], [place] [phone] PCP - General Internal Medicine 03/05/17 03/16/21 [place] [address] PCP - General Internal Medicine 03/17/21 05/04/21 Michelle Norris MD [address] [place] [address] PCP - General Internal Medicine 05/05/21 09/13/22 Rosetta Diamond MD [address] [place] [address] PCP - General Internal Medicine 09/14/22 documented as of this encounter
--- OUTSIDE RECORDS SUMMARY | 2025-01-14 17:41 | XMS_ITS | Encounter Summary ---
Author Organization [facility] Address [address] [place] [address] Care Team Providers Care Proof Tester Name Role Phone Nikki Alcantar MD Primary Care Provider [phone] Michelle Norris MD Primary Care Provider Unavail [facility] Primary Care Provider [facility] Michelle Norris MD Primary Care Provider Unavail [facility] Rosetta Diamond MD Primary Care Provider + Encounter Details Date Type Department Care Team Description 11/11/2016 Hospital Medical Records [address] [place] [phone] Andrew Rollins Social History Tobacco Use Types [...] on filedocumented in this encounter Care Teams Proof Tester Relationship Specialty Start Date End Date Nikki Alcantar MD [address] [place] [address] PCP - General 06/26/05 03/04/17 Michelle Norris MD [address] [place] [address] PCP - General Internal Medicine 03/05/17 03/16/21 [facility], Pcp [address] [place] [address] PCP - General Internal Medicine 03/17/21 05/04/21 Mcihelle Norris MD [address] [place] [address] PCP - General Internal Medicine 05/05/21 09/13/22 Rosetta Diamond MD [address] [place] [address] PCP - General Internal Medicine 09/14/22 documented as of this encounter
--- OUTSIDE RECORDS SUMMARY | 2025-01-14 17:41 | XMS_ITS | Encounter Summary ---
Author Organization [facility] Address [address] [place] [address] Care Team Providers Care Viscosity Worker Name Role Phone Nikki Alcantar MD Primary Care Provider [phone] Michelle Norris MD Primary Care Provider Unavail [facility] Primary Care Provider [facility] Michelle Norris MD Primary Care Provider Unavail [facility] Rosetta Diamond MD Primary Care Provider + Encounter Details Date Type Department Care Team Description 12/13/2012 Hospital Medical Records [address] [place] [address] Marlen Grande Social History Tobacco Use Types [...] on filedocumented in this encounter Care Teams Viscosity Worker Relationship Specialty Start Date End Date Nikki Alcantar MD [address] [place] [address] 35167 PCP - General 06/26/05 03/04/17 Michelle Norris MD [address] [place] [address] 30872 PCP - General Internal Medicine 03/05/17 03/16/21 [facility], Pcp [address] [place] [address] 59192 PCP - General Internal Medicine 03/17/21 05/04/21 Michelle Norris MD [address] [place] [address] 70209 PCP - General Internal Medicine 05/05/21 09/13/22 Rosetta Diamond MD [address] [place] [address] 0[address]20 PCP - General Internal Medicine 09/14/22 documented as of this encounter
--- OUTSIDE RECORDS SUMMARY | 2025-01-14 17:41 | XMS_ITS | Encounter Summary ---
Author Organization [facility] Address [address] [place] [address] Care Team Providers Care Film Developing Machine Operator Name Role Phone Nikki Alcantar MD Primary Care Provider [phone] Michelle Norris MD Primary Care Provider Unavail [facility] Primary Care Provider [facility] Michelle Norris MD Primary Care Provider Unavail [facility] Rosetta Diamond MD Primary Care Provider + Encounter Details Date Type Department Care Team Description 11/11/2016 Hospital Medical Records [address] [place] [address] Lucita Eileenelizabeth Social History Tobacco Use Types [...] on filedocumented in this encounter Care Teams Film Developing Machine Operator Relationship Specialty Start Date End Date Nikki Alcantar MD [address] [place] [address] 68881 PCP - General 06/26/05 03/04/17 Michelle Norris MD [address] [place] [address] PCP - General Internal Medicine 03/05/17 03/16/21 [facility], Pcp [address] [place] [address] PCP - General Internal Medicine 03/17/21 05/04/21 Michelle Norris MD [address] [place] [address] [place] [address] PCP - General Internal Medicine 05/05/21 09/13/22 Rosetta Diamond MD [address], [place] [phone] PCP - General Internal Medicine 09/14/22 documented as of this encounter
--- OUTSIDE RECORDS SUMMARY | 2025-01-14 17:41 | XMS_ITS | Encounter Summary ---
Author Organization [facility] Address [address] [place] [address] Care Team Providers Care Kohinoor Operator Name Role Phone Nikki Alcantar MD Primary Care Provider [phone] Michelle Norris MD Primary Care Provider Unavail able [facility] Primary Care Provider [facility] Michelle Norris MD Primary Care Provider Unavail [facility] Rosetta Diamond MD Primary Care Provider + Encounter Details Date Type Department Care Team Description 08/27/2016 Fishing Boat Mate Report Medical Records [address] [place] [address] Francis Booth I., PH.D Social History Tobacco [...] on filedocumented in this encounter Care Teams Kohinoor Operator Relationship Specialty Start Date End Date Nikik Alcantar MD [address] [place] [address] 45407 PCP - General 06/26/05 03/04/17 Michelle Norris MD [address] [place] [address] PCP - General Internal Medicine 03/05/17 03/16/21 [facility], Pcp [address] [place] [address] PCP - General Internal Medicine 03/17/21 05/04/21 Michelle Norris MD [address] [place] [address] 31415 PCP - General Internal Medicine 05/05/21 09/13/22 Rosetta Diamond MD [address] [place] [address]20 PCP - General Internal Medicine 09/14/22 documented as of this encounter
--- OUTSIDE RECORDS SUMMARY | 2025-01-14 17:41 | XMS_ITS | Encounter Summary ---
Author Organization [facility] Address [address] [place] [address] Care Team Providers Care Livestock Nutritionist Name Role Phone Nikki Alcantar MD Primary Care Provider [phone] Michelle Norris MD Primary Care Provider Unavail [facility] Primary Care Provider [facility] Michelle Norris MD Primary Care Provider Unavail [facility] Rosetta Diamond MD Primary Care Provider + Encounter Details Date Type Department Care Team Description 05/22/2009 Hospital Medical Records [address] [place] [address] 49[address] Shelly Espana MD Social History Tobacco Use [...] filedocumented in this encounter Care Teams Livestock Nutritionist Relationship Specialty Start Date End Date Nikki Alcantar MD [address] [place] [address] 42570 PCP - General 06/26/05 03/04/17 Michelle Norris MD [address] [place] [address] PCP - General Internal Medicine 03/05/17 03/16/21 [facility], Pcp [address] [place] [address] PCP - General Internal Medicine 03/17/21 05/04/21 Michelle Norris MD [address] [place] [address] [place] [address] PCP - General Internal Medicine 05/05/21 09/13/22 Rosetta Diamond MD [address] [place], [place] [phone] PCP - General Internal Medicine 09/14/22 documented as of this encounter
--- OUTSIDE RECORDS SUMMARY | 2025-01-14 17:41 | XMS_ITS | Encounter Summary ---
Author Organization [facility] Address [address] [place] [address] Care Team Providers Care Rod Mill Tender Name Role Phone Nikki Alcantar MD Primary Care Provider [phone] Michelle Norris MD Primary Care Provider Unavail [facility] Primary Care Provider [facility] Michelle Norris MD Primary Care Provider Unavail [facility] Rosetta Diamond MD Primary Care Provider + Encounter Details Date Type Department Care Team Description 09/22/2016 Hospital Medical Records [address] [place] [address] Angelique Moore Social History Tobacco Use Types [...] on filedocumented in this encounter Care Teams Rod Mill Tender Relationship Specialty Start Date End Date Nikki Alcantar MD [address] [place] [address] 67272 PCP - General 06/26/05 03/04/17 Michelle Norris MD [address] [place] [address] PCP - General Internal Medicine 03/05/17 03/16/21 [facility], Pcp [address] [place] [address] PCP - General Internal Medicine 03/17/21 05/04/21 Michelle Norris MD [address] [place] [address] [place] [address] PCP - General Internal Medicine 05/05/21 09/13/22 Rosetta Diamond MD [address] [place], [place] [phone] PCP - General Internal Medicine 09/14/22 documented as of this encounter
--- OUTSIDE RECORDS SUMMARY | 2025-01-14 17:41 | XMS_ITS | Encounter Summary ---
Author Organization [facility] Address [address] [place] [address] Care Team Providers Care Design Painter Name Role Phone Nikki Alcantar MD Primary Care Provider [phone] Michelle Norris MD Primary Care Provider Unavail able [facility] Michelle Norris MD Primary Care Provider Unavail able Rosetta Diamond MD Primary Care Provider + Reason for Visit * Reason Onset Date Comments Error 09/11/2016 Encounter Details Date Type Department Care Team Description 09/11/2016 Telephone Adult Medicine [address] [phone] Nikki Alcantar MD [address] [place] [address] [phone] Error Social History Tobacco Use Types Packs/Day [...] on filedocumented in this encounter Care Teams Design Painter Relationship Specialty Start Date End Date Nikki Alcantar MD [address] [place] [address] PCP - General 06/26/05 03/04/17 Michelle Norris MD [address] [place] [address] PCP - General Internal Medicine 03/05/17 03/16/21 [facility] [place] [address] PCP - General Internal Medicine 03/17/21 05/04/21 Michelle Norris MD [address] [place] [address] PCP - General Internal Medicine 05/05/21 09/13/22 Rosetta Diamond MD [address] [place] [address] PCP - General Internal Medicine 09/14/22 documented as of this encounter
--- OUTSIDE RECORDS SUMMARY | 2025-01-14 17:41 | XMS_ITS | Encounter Summary ---
Author Organization [facility] Address [address] [place] [address] Care Team Providers Care Administrative Office Specialist Name Role Phone Nikki Alcantar MD Primary Care Provider [phone] Michelle Norris MD Primary Care Provider Unavail [facility] Primary Care Provider [facility] Michelle Norris MD Primary Care Provider Unavail [facility] Rosetta Diamond MD Primary Care Provider + Encounter Details Date Type Department Care Team Description 03/04/2013 Night Triage Doc Medical Records [address] [place] [address] 49817 Abstract, Provider Social History Tobacco Use Types [...] filedocumented in this encounter Care Teams Administrative Office Specialist Relationship Specialty Start Date End Date Nikki Alcantar MD [address] [place] [address] 41852 PCP - General 06/26/05 03/04/17 Michelle Norris MD [address] [place] [address] PCP - General Internal Medicine 03/05/17 03/16/21 [facility], Pcp [address] [place] [address] PCP - General Internal Medicine 03/17/21 05/04/21 Michelle Norris MD [address] [place] [address] [place] [address] PCP - General Internal Medicine 05/05/21 09/13/22 Rosetta Diamond MD [address] [place], [place] [phone] PCP - General Internal Medicine 09/14/22 documented as of this encounter
--- OUTSIDE RECORDS SUMMARY | 2025-01-14 17:41 | XMS_ITS | Encounter Summary ---
Author Organization [facility] Address [address] [place] [address] Care Team Providers Care Tunnel Inspector Name Role Phone Katherine Norris MD Primary Care Provider Unavail able [facility] Katherine Lagos MD Primary Care Provider Unavail able Rosetta Diamond MD Primary Care Provider + Reason for Visit * Reason Onset Date Comments Call From Hospital 10/14/2019 Encounter Details Date Type Department Care Team Description 10/14/2019 Telephone Adult Medicine [address] [address] Katherine Norris MD Call From Hospital Social [...] - 10/14/2019 12:53 PM EST Aurea from [facility] is calling as FYI to KATHERINE NORRIS patient has been admitted to hospital since 10/08/19. She states if any questions feel free to call her at [phone] documented in this encounter Plan of Treatment Not on file documented as of this encounter Visit Diagnoses Not on filedocumented in this encounter Care Teams Tunnel Inspector Relationship Specialty Start Date End Date Katherine Norris MD PCP - General Internal Medicine 03/05/17 03/16/21 [facility], Pcp PCP - General Internal Medicine 03/17/21 05/04/21 Katherine Norris MD PCP - General Internal Medicine 05/05/21 09/13/22 Rosetta Diamond MD [address] [place] [address] 24453 PCP - General Internal Medicine 09/14/22 documented as of this encounter
--- OUTSIDE RECORDS SUMMARY | 2025-01-14 17:41 | XMS_ITS | Encounter Summary ---
Author Organization [facility] Address [address] [place] [address] Care Team Providers Care Flattening Machine Operator Name Role Phone Nikki Alcantar MD Primary Care Provider [phone] Michelle Norris MD Primary Care Provider Unavail [facility] Primary Care Provider [facility] Michelle Norris MD Primary Care Provider Unavail [facility] Rosetta Diamond MD Primary Care Provider + Encounter Details Date Type Department Care Team Description 01/22/2013 Night Triage Doc Medical Records [address] [place] [address]309 Abstract, Provider Social History Tobacco Use Types [...] on filedocumented in this encounter Care Teams Flattening Machine Operator Relationship Specialty Start Date End Date Nikki Alcantar MD [address] [place] [address] 93689 PCP - General 06/26/05 03/04/17 Michelle Norris MD [address] [place] [address] 42615 PCP - General Internal Medicine 03/05/17 03/16/21 [facility], Pcp [address] [place] [address] PCP - General Internal Medicine 03/17/21 05/04/21 Michelle Norris MD [address] [place], [place] [phone] PCP - General Internal Medicine 05/05/21 09/13/22 Rosetta Diamond MD [address] [place] [address] PCP - General Internal Medicine 09/14/22 documented as of this encounter
--- OUTSIDE RECORDS SUMMARY | 2025-01-14 17:41 | XMS_ITS | Encounter Summary ---
Author Organization [facility] Address [address] [place] [address] Care Team Providers Care Story Editor Name Role Phone Nikki Alcantar MD Primary Care Provider [phone] Michelle Norris MD Primary Care Provider Unavail [facility] Primary Care Provider [facility] Michelle Norris MD Primary Care Provider Unavail [facility] Rosetta Diamond MD Primary Care Provider + Encounter Details Date Type Department Care Team Description 06/25/2013 Hospital Medical Records [address] [place] [address]395 Miles Shah MD Social History Tobacco Use [...] on filedocumented in this encounter Care Teams Story Editor Relationship Specialty Start Date End Date Nikki Alcantar MD [address] [place] [address] 57213 PCP - General 06/26/05 03/04/17 Michelle Norris MD [address] [place] [address] 87749 PCP - General Internal Medicine 03/05/17 03/16/21 [facility], Pcp [address] [place] [address] 18636 PCP - General Internal Medicine 03/17/21 05/04/21 Michelle Norris MD [address] [place] [address] 31013 PCP - General Internal Medicine 05/05/21 09/13/22 Rosetta Diamond MD [address] [place] [address]20 PCP - General Internal Medicine 09/14/22 documented as of this encounter
--- OUTSIDE RECORDS SUMMARY | 2025-01-14 17:41 | XMS_ITS | Encounter Summary ---
Author Organization [facility] Address [address] [place] [address] Care Team Providers Care Skin Toggler Name Role Phone Nikki Alcantar MD Primary Care Provider [phone] Michelle Norris MD Primary Care Provider Unavail able [facility] Michelle Norris MD Primary Care Provider Unavail able Rosetta Diamond MD Primary Care Provider + Reason for Visit * Reason Onset Date Comments refill request 01/25/2017 Encounter Details Date Type Department Care Team Description 01/25/2017 Refill Adult Medicine [address] [phone] Nikki Alcantar MD [address] [place] [address] [phone] refill request Social History Tobacco Use Types [...] / Plan: [place] / Product Type: MEDICARE [id number] documented in this encounter Plan of Treatment Not on file documented as of this encounter Visit Diagnoses Not on filedocumented in this encounter Care Teams Skin Toggler Relationship Specialty Start Date End Date Nikki Alcantar MD [address] [place] [address] PCP - General 06/26/05 03/04/17 Michelle Norris MD [address] [place] [address] PCP - General Internal Medicine 03/05/17 03/16/21 [place] [address] PCP - General Internal Medicine 03/17/21 05/04/21 Michelle Norris MD [address] [place] [address] PCP - General Internal Medicine 05/05/21 09/13/22 Rosetta Diamond MD [address] [place] [address] PCP - General Internal Medicine 09/14/22 documented as of this encounter
--- OUTSIDE RECORDS SUMMARY | 2025-01-14 17:41 | XMS_ITS | Encounter Summary ---
Author Organization [facility] Address [address] [place] [address] Care Team Providers Care Channel Man Name Role Phone Nikki Alcantar MD Primary Care Provider [phone] Michelle Norris MD Primary Care Provider Unavail [facility] Primary Care Provider [facility] Michelle Norris MD Primary Care Provider Unavail [facility] Rosetta Diamond MD Primary Care Provider + Encounter Details Date Type Department Care Team Description 11/28/2012 Business Intelligence Etl Developer Report Medical Records [address] [place] [address] 25328 Julio Paredes MD Social History Tobacco Use [...] on filedocumented in this encounter Care Teams Channel Man Relationship Specialty Start Date End Date Nikki Alcantar MD [address] [place] [address] 53478 PCP - General 06/26/05 03/04/17 Michelle Norris MD [address] [place] [address] PCP - General Internal Medicine 03/05/17 03/16/21 [facility], Pcp [address] [place] [address] 99213 PCP - General Internal Medicine 03/17/21 05/04/21 Michelle Norris MD [address] [place] [address] [place] [address] PCP - General Internal Medicine 05/05/21 09/13/22 Rosetta Diamond MD [address] [place], [place] [phone] PCP - General Internal Medicine 09/14/22 documented as of this encounter
--- OUTSIDE RECORDS SUMMARY | 2025-01-14 17:41 | XMS_ITS | Encounter Summary ---
Author Organization [facility] Address [address] [place] [address] Care Team Providers Care Cabinet Worker Name Role Phone Nikki Alcantar MD Primary Care Provider [phone] Michelle Norris MD Primary Care Provider Unavail [facility] Primary Care Provider [facility] Michelle Norris MD Primary Care Provider Unavail [facility] Rosetta Diamond MD Primary Care Provider + Encounter Details Date Type Department Care Team Description 05/07/2009 Hospital Medical Records [address] [place] [address] Rosana Gonzalez MD Social History Tobacco Use [...] on filedocumented in this encounter Care Teams Cabinet Worker Relationship Specialty Start Date End Date Nikki Alcantar MD [address] [place] [address] 37916 PCP - General 06/26/05 03/04/17 Michelle Norris MD [address] [place] [address] PCP - General Internal Medicine 03/05/17 03/16/21 [facility], Pcp [address] [place] [address] PCP - General Internal Medicine 03/17/21 05/04/21 Michelle Norris MD [address] [place] [address] [place] [address] PCP - General Internal Medicine 05/05/21 09/13/22 Rosetta Diamond MD [address] [place], [place] [phone] PCP - General Internal Medicine 09/14/22 documented as of this encounter
--- OUTSIDE RECORDS SUMMARY | 2025-01-14 17:41 | XMS_ITS | Encounter Summary ---
Author Organization [facility] Address [address] [place] [address] Care Team Providers Care Picking Supervisor Name Role Phone Nikki Alcantar MD Primary Care Provider [phone] Michelle Norris MD Primary Care Provider Unavail [facility] Primary Care Provider [facility] Michelle Norris MD Primary Care Provider [facility] Rosetta Diamond MD Primary Care Provider + Encounter Details Date Type Department Care Team Description 01/19/2017 Business Doc Medical Records [address] [place] [address] 74673 Abstract, Provider Social History Tobacco Use Types [...] on filedocumented in this encounter Care Teams Picking Supervisor Relationship Specialty Start Date End Date Nikki Alcantar MD [address] [place] [address] 88000 PCP - General 06/26/05 03/04/17 Michelle Norris MD [address] [place] [address] PCP - General Internal Medicine 03/05/17 03/16/21 [facility], Pcp [address] [place] [address] PCP - General Internal Medicine 03/17/21 05/04/21 Michelle Norris MD [address] [place] [address] [place] [address] PCP - General Internal Medicine 05/05/21 09/13/22 Rosetta Diamond MD [address] [place], [place] [phone] PCP - General Internal Medicine 09/14/22 documented as of this encounter
--- OUTSIDE RECORDS SUMMARY | 2025-01-14 17:41 | XMS_ITS | Encounter Summary ---
Author Organization [facility] Address [address] [place] [address] Care Team Providers Care Bar Pilot Name Role Phone Nikki Alcantar MD Primary Care Provider Michelle Norris MD Primary Care Provider Unavail [facility] Primary Care Provider [facility] Michelle Norris MD Primary Care Provider [facility] Rosetta Diamond MD Primary Care Provider + Encounter Details Date Type Department Care Team Description 12/31/2012 Hospital Medical Records [address] [place] [address] Sourav Lucsa Social History Tobacco Use Types Packs/Day Years [...] filedocumented in this encounter Care Teams Bar Pilot Relationship Specialty Start Date End Date Nikki Alcantar MD [address] [place] [address] 6[address]99 PCP - General 06/26/05 03/04/17 Michelle Norris MD [address] [place] [address] PCP - General Internal Medicine 03/05/17 03/16/21 [facility] Pcp [address] [place] [address] PCP - General Internal Medicine 03/17/21 05/04/21 Michelle Norris MD [address] [place] [address] [place] [address] PCP - General Internal Medicine 05/05/21 09/13/22 Rosetta Diamond MD [address] [place], [place] [phone] PCP - General Internal Medicine 09/14/22 documented as of this encounter
--- OUTSIDE RECORDS SUMMARY | 2025-01-14 17:41 | XMS_ITS | Encounter Summary ---
Author Organization [facility] Address [address] [place] [address] Care Team Providers Care Sequencing Machine Operator Name Role Phone Nikki Alcantar MD Primary Care Provider [phone] Michelle Norris MD Primary Care Provider [facility]avail [facility] Primary Care Provider [facility] Michelle Norris MD Primary Care Provider Unavail able Rosetta Diamond MD Primary Care Provider + Reason for Visit * Reason Onset Date Comments Call From Hospital 06/07/2016 Encounter Details Date Type Department Care Team Description 06/07/2016 Telephone Adult Medicine [address] [phone] Nikki Alcantar MD [address] [place] [address] [phone] Call From Hospital Social History Tobacco Use [...] Donavon Harvey - 06/07/2016 8:48 AM EDT [facility] Phsyc unit calling to inform us that patient was admitted to phsyc unit yesterday documented in this encounter Plan of Treatment Not on file documented as of this encounter Visit Diagnoses Not on filedocumented in this encounter Care Teams Sequencing Machine Operator Relationship Specialty Start Date End Date Nikki Alcantar MD [address] [place] [address] PCP - General 06/26/05 03/04/17 Michelle Norris MD [address] [place] [address] PCP - General Internal Medicine 03/05/17 03/16/21 [place] [address] PCP - General Internal Medicine 03/17/21 05/04/21 Michelle Norris MD [address] [place] [address] PCP - General Internal Medicine 05/05/21 09/13/22 Rosetta Diamond MD [address] [place], [place] [phone] PCP - General Internal Medicine 09/14/22 documented as of this encounter
--- OUTSIDE RECORDS SUMMARY | 2025-01-14 17:41 | XMS_ITS | Encounter Summary ---
Author Organization [facility] Address [address] [place] [address] Care Team Providers Care Review Specialist Name Role Phone Nikki Alcantar MD Primary Care Provider [phone] Michelle Norris MD Primary Care Provider Unavail [facility] Primary Care Provider [facility] Michelle Norris MD Primary Care Provider [facility] Rosetta Diamond MD Primary Care Provider + Encounter Details Date Type Department Care Team Description 06/10/2013 Hospital Medical Records [address] [place] [id number] Miles Shah MD Social History Tobacco Use [...] on filedocumented in this encounter Care Teams Review Specialist Relationship Specialty Start Date End Date Nikki Alcantar MD [address] [place] [address] PCP - General 06/26/05 03/04/17 Michelle Norris MD [address] [place] [address] 68116 PCP - General Internal Medicine 03/05/17 03/16/21 [facility], Pcp [address] [place] [address]06 PCP - General Internal Medicine 03/17/21 05/04/21 Michelle Norris MD [address] [place] [address] 37930 PCP - General Internal Medicine 05/05/21 09/13/22 Rosetta Diamond MD [address] [place] [address] PCP - General Internal Medicine 09/14/22 documented as of this encounter
--- OUTSIDE RECORDS SUMMARY | 2025-01-14 17:41 | XMS_ITS | Encounter Summary ---
Author Organization [facility] Address [address] [place] [address] Care Team Providers Care Health Type Technician Name Role Phone Nikki Alcantar MD Primary Care Provider [phone] Michelle Norris MD Primary Care Provider Unavail [facility] Primary Care Provider [facility] Michelle Norris MD Primary Care Provider Unavail [facility] Rosetta Diamond MD Primary Care Provider + Encounter Details Date Type Department Care Team Description 06/06/2016 Manufacturing Engineer Paint Report Medical Records [address] [place] [id number] Chuck Dave MD Social History Tobacco Use [...] filedocumented in this encounter Care Teams Health Type Technician Relationship Specialty Start Date End Date Nikki Alcantar MD [address] [place] [phone] PCP - General 06/26/05 03/04/17 Michelle Norris MD [address] [place] [address] 92892 PCP - General Internal Medicine 03/05/17 03/16/21 [facility], Pcp [address] [place] [address]251 PCP - General Internal Medicine 03/17/21 05/04/21 Michelle Norris MD [address] [place] [address]2313 PCP - General Internal Medicine 05/05/21 09/13/22 Rosetta Diamond MD [address] [place] [address] PCP - General Internal Medicine 09/14/22 documented as of this encounter
--- OUTSIDE RECORDS SUMMARY | 2025-01-14 17:41 | XMS_ITS | Encounter Summary ---
Author Organization [facility] Address [address] [place] [address] Care Team Providers Care Title Manager Name Role Phone Michelle Norris MD Primary Care Provider [facility] MD Primary Care Provider Unavail able Rosetta Diamond MD Primary Care Provider + Encounter Details Date Type Department Care Team Description 03/08/2017 Hospital Medical Records [address] [place] [id number] Sourav Lucas Social History Tobacco Use Types [...] filedocumented in this encounter Care Teams Title Manager Relationship Specialty Start Date End Date Michelle Norris MD PCP - General Internal Medicine 03/05/17 03/16/21 [facility], Pcp PCP - General Internal Medicine 03/17/21 05/04/21 Michelle Norris MD PCP - General Internal Medicine 05/05/21 09/13/22 Rosetta Diamond MD [address] [place] [phone] PCP - General Internal Medicine 09/14/22 documented as of this encounter
--- OUTSIDE RECORDS SUMMARY | 2025-01-14 17:41 | XMS_ITS | Encounter Summary ---
Author Organization [facility] Address [address] [place] [address] Care Team Providers Care Traffic Analysis Technician Name Role Phone Michelle Norris MD Primary Care Provider Unavail able [facility], Pcp Primary Care Provider Unavailabl Michelle Lagos MD Primary Care Provider Unavail able Rosetta Diamond MD Primary Care Provider + Reason for Visit * Reason Onset Date Comments Medication 12/16/2019 Colonoscopy Encounter Details Date Type Department Care Team Description 12/16/2019 Refill Gastroenterology - [address] [place] [phone] Reese Powers MD Medication (Colonoscopy) Social History [...] filedocumented in this encounter Care Teams Traffic Analysis Technician Relationship Specialty Start Date End Date Michelle Norris MD PCP - General Internal Medicine 03/05/17 03/16/21 [facility], [facility] PCP - General Internal Medicine 03/17/21 05/04/21 Michelle Norris MD PCP - General Internal Medicine 05/05/21 09/13/22 Rosetta Diamond MD [address] [place] [phone] PCP - General Internal Medicine 09/14/22 documented as of this encounter
--- OUTSIDE RECORDS SUMMARY | 2025-01-14 17:41 | XMS_ITS | Encounter Summary ---
Author Organization [facility] Address [address] [place] [address] Care Team Providers Care Joinery Machinist Name Role Phone Michelle Norris MD Primary Care Provider [facility], Pcp Primary Care Provider Unavailabl Michelle Lagos MD Primary Care Provider Unavail able Rosetta Diamond MD Primary Care Provider + Reason for Visit * Reason Onset Date Comments Appointment Cancelled 10/30/2019 Encounter Details Date Type Department Care Team Description 10/30/2019 Telephone Adult [address] [address] Michelle Norris MD Appointment Cancelled Social History [...] 10/30/2019 10:29 AM EST FYI-Call received from [employer] [facility] to cancel the 10/31 hospital f/u appointment. Patient is currently at [facility], admitted on 10/24/19. documented in this encounter Plan of Treatment Not on file documented as of this encounter Visit Diagnoses Not on filedocumented in this encounter Care Teams Joinery Machinist Relationship Specialty Start Date End Date Michelle Norris MD PCP - General Internal Medicine 03/05/17 03/16/21 [facility], Pcp PCP - General Internal Medicine 03/17/21 05/04/21 Michelle Norris MD PCP - General Internal Medicine 05/05/21 09/13/22 Rosetta Diamond MD [address] [place] [phone] PCP - General Internal Medicine 09/14/22 documented as of this encounter
== END 2025-01-14 15:13 | disposition home or self-care (01) ==
LOC: HO.LAB 15:12
PROVIDERS: PCP Nurse Practitioner Family
DX: Z79.899 Other long term (current) drug therapy (principal)
CPT/HCPCS: 36415; 85025

== ENCOUNTER 2025-01-23 21:36 | Emergency (ER) | payer MEDICARE, MEDICAID, SELFPAY ==
[2025-01-23 21:58] VITALS: BP 150/102; PULSE 127; RESP 16; TEMP 36.3; O2SAT 97
[2025-01-23 22:44] VITALS: BP 155/97; BP 170/103; PULSE 120; PULSE 130; RESP 18; TEMP 37; O2SAT 97; BMI 32.0
--- NOTE | 2025-01-23 22:44 | ED.GENADULT ---
HPI - General Adult General Chief complaint: Psychiatric Symptoms Stated complaint: hearing voices feels bugs all over admits druguse Time Seen by Provider: 01/23/25 22:33 Source: patient, RN notes reviewed and old records reviewed Mode of arrival: EMS Limitations: no limitations History of Present Illness ED Provider: Hilda HPI narrative: 49-year-old female with a past medical history significant for diabetes, borderline personality disorder, evaluation of hallucinations. The patient is well known to this emergency department for auditory hallucinations. She reports that she smoked her boyfriend's vape pen and I was hallucinating that bugs were crawling all over me. She reports that this resolved with just prior to arrival. She denies any depression, suicidal like on she was no longer hearing voices in no longer having tactile hallucinations Related Data Home Medications ?Medication ?Instructions ?Recorded ?Confirmed albuterol sulfate 90 mcg/actuation 2 puff inhalation Q6H PRN Wheezing 06/24/24 01/10/25 aerosol inhaler amlodipine 5 mg tablet 5 mg PO DAILY 06/24/24 01/10/25 clozapine 100 mg tablet 200 mg PO BEDTIME 06/24/24 01/10/25 fluoxetine 40 mg capsule 80 mg PO DAILY 06/24/24 01/10/25 prazosin 2 mg capsule 4 mg PO BEDTIME 06/24/24 01/10/25 metformin 500 mg tablet 500 mg PO BID 07/15/24 01/10/25 nicotine 21 mg/24 hr daily 1 patch topical DAILY PRN Nicotine 11/04/24 01/10/25 transdermal patch Cravings fluticasone 250 mcg-salmeterol 50 1 ea inhalation BID 01/10/25 01/10/25 mcg/dose blistr powdr for inhalation haloperidol 10 mg tablet 10 mg PO BEDTIME PRN hallucinations 01/10/25 01/10/25 haloperidol 5 mg tablet 5 mg PO TID 01/10/25 01/10/25 Previous Rx's ?Medication ?Instructions ?Recorded nystatin-triamcinolone 100,000 1 appl topical BID #30 grams 12/26/24 unit/g-0.1 % topical cream Allergies Allergy/AdvReac Type Severity Reaction Status Date / Time azithromycin [AZITHROMYCIN] Allergy Severe Rash Verified 01/23/25 22:52 Fish Containing Products Allergy Severe Anaphylaxis Verified 01/23/25 22:52 codeine [Codeine] Allergy Intermediate Rash Verified 01/23/25 22:52 Penicillins Allergy Intermediate Rash Verified 01/23/25 22:52 prednisone [Prednisone] Allergy Intermediate Rash Verified 01/23/25 22:52 Sulfa (Sulfonamide Allergy Intermediate Rash Verified 01/23/25 22:52 Antibiotics) [Sulfa (Sulfonamides)] ziprasidone [From Geodon] Allergy Intermediate dysuria, Verified 01/23/25 22:52 rash lithium Allergy Unknown Rash Verified 01/23/25 22:52 Review of Systems Constitutional: Constitutional: Denies body ache(s), Denies chills, Denies fever(s) and Denies headache(s) Eyes: Eyes: Denies blurry vision ENT: Denies vertigo, Denies dizziness and Denies headache(s) Cardiovascular: Cardiovascular: Denies chest pain and Denies dyspnea Respiratory: Respiratory: Denies cough and Denies dyspnea Gastrointestinal: Gastrointestinal: Denies abdominal pain, Denies nausea and Denies vomiting Musculoskeletal: Musculoskeletal: Denies back pain Neurologic: Denies vertigo, Denies dizziness and Denies headache(s) Psychiatric: Psychiatric: Reports auditory hallucinations (resolved) and Reports visual hallucinations (resolved) [facility] Past Medical History Medical History Asthma Suicidal ideation MDD (major depressive disorder), recurrent episode, severe Chest pain Acute anxiety COVID-19 Full body hives Major depression Dizziness Suicide attempt UTI (urinary tract infection) Acetaminophen overdose COVID History of attempted suicide History of non-suicidal self-harm Hypomagnesemia Suicide attempt Suicide attempt by acetaminophen overdose Acetaminophen overdose Depression Diabetes type 2, controlled Borderline personality disorder PTSD (post-traumatic stress disorder) Overdose GERD (gastroesophageal reflux disease) Mood disorder Hyperlipidemia Bronchitis Social History Social History Household Members: Other Household Members Other:: residential members Housing: Other Housing Other:: residential Do you presently have visiting nurse or other home services: No Unable to assess alcohol history related to: Unknown Alcohol intake: never Comment: sitter in room Patient Tobacco Use Status: Current everyday Tobacco user Tobacco use type: Cigarette Cigarette Packs Per Day: 1 Cigarettes Per Day: 20.0 Years Smoked: 10 e-Cigarette/Vaping Use: Never Used Second Hand Smoke Exposure: No Substance Use Type: Caffiene Advance Directives: No Advance Directives Information Provided: Yes Do you have a plan to hurt others: No Plan service: No Current occupational status: unemployed and disabled Sexual orientation: Straight/Heterosexual Physical Exam ED Vital Signs: Vital Signs - 24 hr 01/23/25 21:58 01/23/25 22:44 01/23/25 23:10 Temperature 97.3 F 98.6 F 98.6 F Pulse Rate 127 H 120 H 90 Respiratory Rate 16 18 16 Blood Pressure 150/102 H 155/97 H 148/90 H Pulse Oximetry 97 97 97 Oxygen Delivery Method Room Air Room Air Room Air BMI result Body Mass Index 32.0 Const General: healthy appearing, comfortable, no acute distress, alert and awake Nutritional Appearance: well nourished Orientation/consciousness: patient oriented x3 HENMT Head: Yes normocephalic and Yes atraumatic Eyes Eyelids: Yes eyelids normal Conjunctivae: conjunctivae normal Sclerae: sclerae normal Corneas: corneas normal Pupils: Equal, round and reactive pupils present EOM: EOMs intact bilaterally Neck Neck: Yes full ROM Resp Effort & Inspection: normal respiratory effort, able to speak in complete sentences and not labored GI Inspection: No distended Palpation (GI): Soft to palpation, not firm, nontender, no guarding and not rigid Auscultation: normoactive bowel sounds Skin General skin exam: elasticity normal Neuro General: patient oriented x3 Cranial nerves: Yes Equal, round and reactive pupils present and Yes Bilaterally intact EOM present Cognition (Neuro): normal cognition Extrem Other: Moving all extremities well without any obvious deformities Medical Decision Making Medical Decision Making MDM Narrative: 49-year-old female past medical history as above presents for evaluation of hallucinations that have since resolved. Patient reports that her symptoms started after smoking cannabis vape pen. She was well known to this emergency department. I have seen her numerous times and she appears at her baseline, she denies any complaints or concerns at this time. The patient will be discharged back to her residential Differential Diagnosis Differential Diagnoses: The differential diagnosis associated with the presentation includes auditory hallucinations Visual hallucinations Tactile hallucinations Substance abuse Bipolar disorder Discharge Plan Discharge Clinical Impression: Borderline personality disorder, Substance abuse Patient Disposition: Home, Self-Care Instructions: Cannabis Abuse (ED), Borderline Personality Disorder (DC) Additional Instructions: I recommend that you avoid substance abuse including marijuana as this will likely worsen your hallucinations. take all of your medications as prescribed follow-up with your primary doctor, return for new or worsening symptoms Prescriptions: No Action fluoxetine 40 mg capsule 80 mg PO DAILY clozapine 100 mg tablet 200 mg PO BEDTIME amlodipine 5 mg tablet 5 mg PO DAILY albuterol sulfate 90 mcg/actuation HFA aerosol inhaler 2 puff inhalation Q6H PRN (Reason: Wheezing) prazosin 2 mg capsule 4 mg PO BEDTIME metformin 500 mg tablet 500 mg PO BID nicotine 21 mg/24 hr patch 24 hour 1 patch topical DAILY PRN (Reason: Nicotine Cravings) nystatin-triamcinolone 100,000-0.1 unit/g-% cream 1 appl topical BID Qty: 30 0RF haloperidol 5 mg tablet 5 mg PO TID haloperidol 10 mg tablet 10 mg PO BEDTIME PRN (Reason: hallucinations) fluticasone propion-salmeterol 250-50 mcg/dose blister with device 1 ea inhalation BID Interventions: Artemas-Suicide Risk Severity Scale Last Done: 01/23/25 22:56 ED Discharge Assessment Last Done: 01/23/25 23:10 Discharge Date/Time: 01/23/25 23:14 Print Language: Armenian
[2025-01-23 23:10] VITALS: BP 148/90; PULSE 90; RESP 16; TEMP 37; O2SAT 97
== END 2025-01-23 23:14 | disposition home or self-care (01) ==
PROVIDERS: Emergency Provider Emergency Medicine
DX: R44.0 Auditory hallucinations (principal); F60.3 Borderline personality disorder; Z79.899 Other long term (current) drug therapy; F17.210 Nicotine dependence, cigarettes, uncomplicated
CPT/HCPCS: 99283

== ENCOUNTER 2025-01-28 14:52 | Outpatient (REF) | payer MEDICARE, MEDICAID, SELFPAY ==
[2025-01-28 15:05] LABS: MANUAL DIFF FLAG NO
[2025-01-28 15:21] LABS: Basophils Absolute Auto 0.1 X10*3/uL (0.0-0.2); Basophils Percent Auto 0.5 % (0-2); Eosinophils Absolute Auto 0.3 X10*3/uL (0.0-0.4); Eosinophils Percent Auto 3.3 % (0-4); Hematocrit 38.9 % (37.0-47.0); Imm Gran Abs Auto 0.07 X10*3/uL (0.00-0.03); Imm Gran Pct Auto 0.8 % (0.0-0.4); Lymphocytes Absolute Auto 1.5 X10*3/uL (1.2-4.9); Lymphocytes Percent Auto 15.8 % (20-40); Mean Corpuscular HGB Conc 33.4 g/dl (31.0-35.0); Mean Corpuscular Hemoglobin 30.9 pg (27.0-33.0); Mean Corpuscular Volume 92.4 fL (80.0-98.0); Mean Platelet Volume 9.4 fL (9.4-12.3); Monocytes Absolute Auto 0.7 X10*3/uL (0.1-1.2); Monocytes Percent Auto 7.6 % (2-11); Neutrophils Absolute Auto 6.7 x10*3/uL (2.0-8.3); Platelet Count 308 X10*3/uL (160-400); Red Blood Count 4.21 X10*6/uL (4.20-5.50); Red Cell Distribution Width 12.6 % (11.0-16.0); White Blood Count 9.3 X10*3/uL (4.8-10.8)
--- OUTSIDE RECORDS SUMMARY | 2025-01-28 17:36 | XMS_ITS | Encounter Summary ---
Author Organization [facility] Address [address] [place] [address] Care Team Providers Care Lathe Hand Name Role Phone Michelle Norris MD Primary Care Provider Unavail able [facility] Michelle Lagos MD Primary Care Provider Unavail able Rosetta Diamond MD Primary Care Provider + Reason for Visit * Reason Onset Date Comments Call From Hospital 06/18/2018 Encounter Details Date Type Department Care Team Description 06/18/2018 Telephone Adult Medicine [address] [phone] Michelle Norris MD Call From Hospital Social [...] callers name? Aurea Callers relationship to patient? [facility] health unit If person calling is not the patient themselves, is there a verbal release in FYI or permanent comments for this person: NO Reason for call back: FYI, wants to inform Dr Griffiths that [facility]. Caller offered to speak with the nurse for assistance: YES Response: Patient offered to speak with nurse for assistance and patient agreed. Message forwarded to nurse. documented in this encounter Plan of Treatment Not on file documented as of this encounter Visit Diagnoses Not on filedocumented in this encounter Care Teams Lathe Hand Relationship Specialty Start Date End Date Michelle Norris MD PCP - General Internal Medicine 03/05/17 03/16/21 [facility] PCP - General Internal Medicine 03/17/21 05/04/21 Michelle Norris MD PCP - General Internal Medicine 05/05/21 09/13/22 Rosetta Diamond MD [address] [place] [id number] PCP - General Internal Medicine 09/14/22 documented as of this encounter
--- OUTSIDE RECORDS SUMMARY | 2025-01-28 17:36 | XMS_ITS | Encounter Summary ---
Author Organization [facility] Address [address] [place] [address] Care Team Providers Care Printed Circuit Board Pcb Designer Name Role Phone Nikki Alcantar MD Primary Care Provider [phone] Michelle Norris MD Primary Care Provider Unavail [facility] Primary Care Provider [facility] Michelle Norris MD Primary Care Provider Unavail [facility] Rosetta Diamond MD Primary Care Provider + Encounter Details Date Type Department Care Team Description 05/06/2009 Hospital Medical Records [address] [place] [id number] Magdalena Boyd MD Social History Tobacco Use [...] on filedocumented in this encounter Care Teams Printed Circuit Board Pcb Designer Relationship Specialty Start Date End Date Nikki Alcantar MD [address] [place] [address]68 PCP - General 06/26/05 03/04/17 Michelle Norris MD [address] [place] [address]14 PCP - General Internal Medicine 03/05/17 03/16/21 [facility], Pcp [address] [place] [phone] PCP - General Internal Medicine 03/17/21 05/04/21 Michelle Norris MD [address] [place] [address]8775 PCP - General Internal Medicine 05/05/21 09/13/22 Rosetta Diamond MD [address] [place] [address]20 PCP - General Internal Medicine 09/14/22 documented as of this encounter
--- OUTSIDE RECORDS SUMMARY | 2025-01-28 17:36 | XMS_ITS | Encounter Summary ---
Author Organization [facility] Address [address] [place] [address] Care Team Providers Care Sample Grader Name Role Phone Nikki Alcantar MD Primary Care Provider [phone] Michelle Norris MD Primary Care Provider Unavail [facility] Primary Care Provider [facility] Michelle Norris MD Primary Care Provider Unavail [facility] Rosetta Diamond MD Primary Care Provider + Encounter Details Date Type Department Care Team Description 03/27/2016 Hospital Medical Records [address] [place] [id number] Rod Mccoy MD Social History Tobacco Use [...] filedocumented in this encounter Care Teams Sample Grader Relationship Specialty Start Date End Date Nikki Alcantar MD [address] [place] [address] PCP - General 06/26/05 03/04/17 Michelle Norris MD [address] [place] [address] [phone] PCP - General Internal Medicine 03/05/17 03/16/21 [facility], Pcp [address] [place] [address] 67017 PCP - General Internal Medicine 03/17/21 05/04/21 Michelle Norris MD [address] [place] [address] 06273 PCP - General Internal Medicine 05/05/21 09/13/22 Rosetta Diamond MD [address] [place] [phone] PCP - General Internal Medicine 09/14/22 documented as of this encounter
--- OUTSIDE RECORDS SUMMARY | 2025-01-28 17:36 | XMS_ITS | Encounter Summary ---
Author Organization [facility] Address [address] [place] [address] Care Team Providers Care Bankman Name Role Phone Michelle Norris MD Primary Care Provider [facility] Michelle Norris MD Primary Care Provider Unavail able Rosetta Diamond MD Primary Care Provider + Encounter Details Date Type Department Care Team Description 12/05/2017 Orders Only Adult Medicine [address] [address] Michelle Norris MD Social History Tobacco Use [...] on filedocumented in this encounter Care Teams Bankman Relationship Specialty Start Date End Date Michelle Norris MD PCP - General Internal Medicine 03/05/17 03/16/21 [facility], Pcp PCP - General Internal Medicine 03/17/21 05/04/21 Michelle Norris MD PCP - General Internal Medicine 05/05/21 09/13/22 Rosetta Diamond MD [address] [place] [address] [phone] PCP - General Internal Medicine 09/14/22 documented as of this encounter
--- OUTSIDE RECORDS SUMMARY | 2025-01-28 17:36 | XMS_ITS | Encounter Summary ---
Author Organization [facility] Address [address] [place] [address] Care Team Providers Care Commercial Real Estate Sales Manager Name Role Phone Michelle Norris MD Primary Care Provider Unavail able [facility], Pcp [facility] Michelle Lagos MD Primary Care Provider Unavail able Rosetta Diamond MD Primary Care Provider + Reason for Visit * Reason Onset Date Comments Relay Checker Feedback 07/30/2018 neurologist Encounter Details Date Type Department Care Team Description 07/30/2018 Telephone Adult Medicine [address] [address] Michelle Norris MD Relay Checker Feedback (neurologist) Social History Tobacco Use Types [...] not received should have been faxed to [phone] or [phone] * Telephone Encounter - Anabel Mastesron - 07/30/2018 2:08 PM EDT Patient wanted to make sure we received the goldy for her referral to the neurologist. She filled outa new one on 07/26/18, it was sent to [phone], can you let her know if she needs to do anything to get an appointment in Neurology. Thank you, Anabel documented in this encounter Plan of Treatment Not on file documented as of this encounter Visit Diagnoses Not on filedocumented in this encounter Care Teams Commercial Real Estate Sales Manager Relationship Specialty Start Date End Date Michelle Norris MD PCP - General Internal Medicine 03/05/17 03/16/21 [facility], Pcp PCP - General Internal Medicine 03/17/21 05/04/21 Michelle Norris MD PCP - General Internal Medicine 05/05/21 09/13/22 Rosetta Diamond MD [address] [place] [phone] PCP - General Internal Medicine 09/14/22 documented as of this encounter
--- OUTSIDE RECORDS SUMMARY | 2025-01-28 17:36 | XMS_ITS | Encounter Summary ---
Author Organization [facility] Address [address] [place] [address] Care Team Providers Care Oxide Furnace Tender Name Role Phone Nikki Alcantar MD Primary Care Provider [phone] Michelle Norris MD Primary Care Provider Unavail [facility] Primary Care Provider [facility] Michelle Norris MD Primary Care Provider Unavail [facility] Rosetta Diamond MD Primary Care Provider + Encounter Details Date Type Department Care Team Description 01/05/2016 Transfer Records Medical Records [address] [place] [address] Social History Tobacco Use Types Packs/Day Years [...] on filedocumented in this encounter Care Teams Oxide Furnace Tender Relationship Specialty Start Date End Date Nikki Alcantar MD [address] [place] [address] PCP - General 06/26/05 03/04/17 Michelle Norris MD [address] [place] [address] [phone] PCP - General Internal Medicine 03/05/17 03/16/21 [facility] Pcp [address] [place], [place] [phone] PCP - General Internal Medicine 03/17/21 05/04/21 Michelle Norris MD [address] [place] [phone] PCP - General Internal Medicine 05/05/21 09/13/22 Rosetta Diamond MD [address] [place] [address] PCP - General Internal Medicine 09/14/22 documented as of this encounter
--- OUTSIDE RECORDS SUMMARY | 2025-01-28 17:36 | XMS_ITS | Encounter Summary ---
Author Organization [facility] Address [address] [place] [address] Care Team Providers Care Load Tallier Name Role Phone Michelle Norris MD Primary Care Provider Unavail able [facility] Primary Care Provider [facility] Michelle [place] MD Primary Care Provider Unavail able Rosetta Diamond MD Primary Care Provider + Reason for Visit * Reason Onset Date Comments refill request 06/11/2019 Encounter Details Date Type Department Care Team Description 06/11/2019 Refill Adult Medicine [address] [address] Michelle Norris MD refill request Social History [...] / Plan: [place] / Product Type: MEDICARE [id number] documented in this encounter Plan of Treatment Not on file documented as of this encounter Visit Diagnoses Not on filedocumented in this encounter Care Teams Load Tallier Relationship Specialty Start Date End Date Michelle Norris MD PCP - General Internal Medicine 03/05/17 03/16/21 [facility] PCP - General Internal Medicine 03/17/21 05/04/21 Michelle Norris MD PCP - General Internal Medicine 05/05/21 09/13/22 Rosetta Diamond MD [address] [place] [address] PCP - General Internal Medicine 09/14/22 documented as of this encounter
--- OUTSIDE RECORDS SUMMARY | 2025-01-28 17:36 | XMS_ITS | Encounter Summary ---
Author Organization [facility] Address [address] [place] [address] Care Team Providers Care Property Master Name Role Phone Nikki Alcantar MD Primary Care Provider [phone] Michelle Norris MD Primary Care Provider Unavail [facility] Primary Care Provider [facility] Michelle Norris MD Primary Care Provider Unavail [facility] Rosetta Diamond MD Primary Care Provider + Encounter Details Date Type Department Care Team Description 11/25/2015 Hospital Medical Records [address] [place] [address] Petey Kate Social History Tobacco Use Types [...] on filedocumented in this encounter Care Teams Property Master Relationship Specialty Start Date End Date Nikki Alcantar MD [address] [place] [address] PCP - General 06/26/05 03/04/17 Michelle Norris MD [address] [place] [address] PCP - General Internal Medicine 03/05/17 03/16/21 [facility], Pcp [address] [place] [address] PCP - General Internal Medicine 03/17/21 05/04/21 Michelle Norris MD [address] [place] [address] [place] [address] PCP - General Internal Medicine 05/05/21 09/13/22 Rosetta Diamond MD [address] [place], [place] [phone] PCP - General Internal Medicine 09/14/22 documented as of this encounter
--- OUTSIDE RECORDS SUMMARY | 2025-01-28 17:36 | XMS_ITS | Encounter Summary ---
Author Organization [facility] Address [address] [place] [address] Care Team Providers Care Manager Testing Name Role Phone Michelle Norris MD Primary Care Provider Unavail able [facility], Pcp Primary Care Provider [facility] Michelle Norris MD Primary Care Provider Unavail able Rosetta Diamond MD Primary Care Provider + Encounter Details Date Type Department Care Team Description 05/08/2018 Hospital Medical Records [address] [place] [id number] Abstract, Provider Social History Tobacco Use Types [...] filedocumented in this encounter Care Teams Manager Testing Relationship Specialty Start Date End Date Michelle Norris MD PCP - General Internal Medicine 03/05/17 03/16/21 [facility], Pcp PCP - General Internal Medicine 03/17/21 05/04/21 Michelle Norris MD PCP - General Internal Medicine 05/05/21 09/13/22 Rosetta Diamond MD [address] [place] [address] PCP - General Internal Medicine 09/14/22 documented as of this encounter
--- OUTSIDE RECORDS SUMMARY | 2025-01-28 17:36 | XMS_ITS | Encounter Summary ---
Author Organization [facility] Address [address] [place] [address] Care Team Providers Care Circuit Judge Name Role Phone Nikki Alcantar MD Primary Care Provider [phone] Michelle Norris MD Primary Care Provider Unavail [facility] Primary Care Provider [facility] Michelle Norris MD Primary Care Provider Unavail [facility] Rosetta Diamond MD Primary Care Provider + Encounter Details Date Type Department Care Team Description 01/01/2016 Hospital Medical Records [address] [place] [address] Social History Tobacco Use Types Packs/Day Years [...] on filedocumented in this encounter Care Teams Circuit Judge Relationship Specialty Start Date End Date Nikki Alcantar MD [address] [place] [address] PCP - General 06/26/05 03/04/17 Michelle Norris MD [address] [place] [address] 857[address] PCP - General Internal Medicine 03/05/17 03/16/21 [facility], Pcp [address] [place] [address] PCP - General Internal Medicine 03/17/21 05/04/21 Michelle Norris MD [address] [place] [address] PCP - General Internal Medicine 05/05/21 09/13/22 Rosetta Diamond MD [address] [place] [address] PCP - General Internal Medicine 09/14/22 documented as of this encounter
--- OUTSIDE RECORDS SUMMARY | 2025-01-28 17:36 | XMS_ITS | Encounter Summary ---
Author Organization [facility] Address [address] [place] [address] Care Team Providers Care Mine Technician Name Role Phone Michelle Norris MD Primary Care Provider Unavail [facility] Pcp [facility] Michelle Norris MD Primary Care Provider Unavail able Rosetta Diamond MD Primary Care Provider + Encounter Details Date Type Department Care Team Description 04/15/2018 Hospital Medical Records [address] [place] [address] Social History Tobacco Use Types Packs/Day Years [...] on filedocumented in this encounter Care Teams Mine Technician Relationship Specialty Start Date End Date Michelle Norris MD PCP - General Internal Medicine 03/05/17 03/16/21 [facility], Pcp PCP - General Internal Medicine 03/17/21 05/04/21 Michelle Norris MD PCP - General Internal Medicine 05/05/21 09/13/22 Rosetta Diamond MD [address] [place] [address] PCP - General Internal Medicine 09/14/22 documented as of this encounter
--- OUTSIDE RECORDS SUMMARY | 2025-01-28 17:36 | XMS_ITS | Encounter Summary ---
Author Organization [facility] Address [address] [place] [address] Care Team Providers Care Staff Mechanical Engineer Name Role Phone Nikki Alcantar MD Primary Care Provider [phone] Michelle Norris MD Primary Care Provider Unavail [facility] Primary Care Provider [facility] Michelle Norris MD Primary Care Provider Unavail [facility] Rosetta Diamond MD Primary Care Provider + Encounter Details Date Type Department Care Team Description 10/28/2014 Hospital Medical Records [address] [place] [phone] Social History Tobacco Use Types Packs/Day Years [...] filedocumented in this encounter Care Teams Staff Mechanical Engineer Relationship Specialty Start Date End Date Nikki Alcantar MD [address] [place] [address] PCP - General 06/26/05 03/04/17 Michelle Norris MD [address] [place] [address] PCP - General Internal Medicine 03/05/17 03/16/21 [facility], Pcp [address] [place] [address] PCP - General Internal Medicine 03/17/21 05/04/21 Michelle Norris MD [address] [place] [address] PCP - General Internal Medicine 05/05/21 09/13/22 Rosetta Diamond MD [address] [place] [address] KARTIK CHEN [address] PCP - General Internal Medicine 09/14/22 documented as of this encounter
--- OUTSIDE RECORDS SUMMARY | 2025-01-28 17:36 | XMS_ITS | Encounter Summary ---
Author Organization [facility] Address [address] [place] [address] Care Team Providers Care Drop Count Associate Name Role Phone Nikki Alcantar MD Primary Care Provider [phone] Michelle Norris MD Primary Care Provider Unavail [facility] Primary Care Provider [facility] Michelle Norris MD Primary Care Provider Unavail [facility] Rosetta Diamond MD Primary Care Provider + Encounter Details Date Type Department Care Team Description 10/15/2008 Hospital Medical Records [address] [place] [id number] Hank Enciso Social History Tobacco Use Types [...] on filedocumented in this encounter Care Teams Drop Count Associate Relationship Specialty Start Date End Date Nikki Alcantar MD [address] [place] [address] PCP - General 06/26/05 03/04/17 Michelle Norris MD [address] [place] [address] PCP - General Internal Medicine 03/05/17 03/16/21 [facility], Pcp [address] [place] [address] PCP - General Internal Medicine 03/17/21 05/04/21 Michelle Norris MD [address] [place] [address] [place] [address] PCP - General Internal Medicine 05/05/21 09/13/22 Rosetta Diamond MD [address] [place], [place] [phone] PCP - General Internal Medicine 09/14/22 documented as of this encounter
--- OUTSIDE RECORDS SUMMARY | 2025-01-28 17:36 | XMS_ITS | Encounter Summary ---
Author Organization [facility] Address [address] [place] [address] Care Team Providers Care Television Installer Name Role Phone Nikki Alcantar MD Primary Care Provider [phone] Michelle Norris MD Primary Care Provider Unavail [facility] Primary Care Provider [facility] Michelle Norris MD Primary Care Provider Unavail [facility] Rosetta Diamond MD Primary Care Provider + Encounter Details Date Type Department Care Team Description 07/30/2014 Hospital Medical Records [address] [place] [phone] Social History Tobacco Use Types Packs/Day Years [...] on filedocumented in this encounter Care Teams Television Installer Relationship Specialty Start Date End Date Nikki Alcantar MD [address] [place] [address] PCP - General 06/26/05 03/04/17 Michelle Norris MD [address] [place] [address] PCP - General Internal Medicine 03/05/17 03/16/21 [facility], Pcp [address] [place] [address] 90[address] PCP - General Internal Medicine 03/17/21 05/04/21 Michelle Norris MD [address] [place] [address] 239[address] PCP - General Internal Medicine 05/05/21 09/13/22 Rosetta Diamond MD [address] [place] [address] KARTIK CHEN [address] PCP - General Internal Medicine 09/14/22 documented as of this encounter
--- OUTSIDE RECORDS SUMMARY | 2025-01-28 17:36 | XMS_ITS | Encounter Summary ---
Author Organization [facility] Address [address] [place] [address] Care Team Providers Care Barrel Rifler Name Role Phone Nikki Alcantar MD Primary Care Provider [phone] Michelle Norris MD Primary Care Provider Unavail [facility] Primary Care Provider [facility] Michelle Norris MD Primary Care Provider Unavail [facility] Rosetta Diamond MD Primary Care Provider + Encounter Details Date Type Department Care Team Description 02/11/2015 Hospital Medical Records [address] [place] [address] Social History Tobacco Use Types Packs/Day Years [...] on filedocumented in this encounter Care Teams Barrel Rifler Relationship Specialty Start Date End Date Nikki Alcantar MD [address] [place] [address] PCP - General 06/26/05 03/04/17 Michelle Norris MD [address] [place] [address] PCP - General Internal Medicine 03/05/17 03/16/21 [facility]cp [address] [place] [address] PCP - General Internal Medicine 03/17/21 05/04/21 Michelle Norris MD [address] [place] [address] 79296 PCP - General Internal Medicine 05/05/21 09/13/22 Rosetta Diamond MD [address] [place] [address] KARTIK CHEN [address] PCP - General Internal Medicine 09/14/22 documented as of this encounter
--- OUTSIDE RECORDS SUMMARY | 2025-01-28 17:36 | XMS_ITS | Encounter Summary ---
Author Organization [facility] Address [address] [place] [address] Care Team Providers Care Elevator Service Technician Name Role Phone Michelle Norris MD Primary Care Provider Unavail able [facility], Pcp Primary Care Provider [facility] Michelle [place] MD Primary Care Provider Unavail able Rosetta Diamond MD Primary Care Provider + Reason for Visit * Reason Onset Date Comments other 05/02/2018 hospital admissi on [facility] Care Encounter Details Date Type Department Care Team Description 05/02/2018 Telephone Adult Medicine [address] [address] Michelle Norris MD other (hospital admission - [facility]) Social History Tobacco Use Types Packs/Day [...] - 05/16/2018 1:49 PM EDT [facility] called to confirm Hosp f/u appt on 05/22 at 1:30. She will fax hospital notes to [phone] * Telephone Encounter - Sridevi Raymundo R.N. - 05/16/2018 12:17 PM EDT I left a message for Paradise from [facility] at [phone] to return my call. Pt has hosp f/u appt 05/22 at 1:30 with pcp. * Telephone Encounter - Sridevi Toscano - 05/16/2018 10:43 AM EDT [facility] Returning call * Telephone Encounter - Sho Souza - 05/02/2018 4:56 PM EDT Patient was admitted on 05-01-18 to [facility] dx: suicidal ideation with aplan. documented in this encounter Plan of Treatment Not on file documented as of this encounter Visit Diagnoses Not on filedocumented in this encounter Care Teams Elevator Service Technician Relationship Specialty Start Date End Date Michelle Norris MD PCP - General Internal Medicine 03/05/17 03/16/21 [facility] PCP - General Internal Medicine 03/17/21 05/04/21 Michelle Norris MD PCP - General Internal Medicine 05/05/21 09/13/22 Rosetta Diamond MD [address] [place] [address] PCP - General Internal Medicine 09/14/22 documented as of this encounter
--- OUTSIDE RECORDS SUMMARY | 2025-01-28 17:36 | XMS_ITS | Encounter Summary ---
Author Organization [facility] Address [address] [place] [address] Care Team Providers Care Water Service Supervisor Name Role Phone Michelle Norris MD Primary Care Provider Unavail able [facility], Pcp Primary Care Provider Unavailabl e Michelle Norris MD Primary Care Provider Unavail able Rosetta Diamond MD Primary Care Provider + Encounter Details Date Type Department Care Team Description 09/09/2018 Hospital Medical Records [address] [place] [address] Jefe Robison NP Social History Tobacco Use [...] filedocumented in this encounter Care Teams Water Service Supervisor Relationship Specialty Start Date End Date Michelle Norris MD PCP - General Internal Medicine 03/05/17 03/16/21 [facility], Pcp PCP - General Internal Medicine 03/17/21 05/04/21 Michelle Norris MD PCP - General Internal Medicine 05/05/21 09/13/22 Rosetta Diamond MD [address] [place] [address] PCP - General Internal Medicine 09/14/22 documented as of this encounter
--- OUTSIDE RECORDS SUMMARY | 2025-01-28 17:36 | XMS_ITS | Encounter Summary ---
Author Organization [facility] Address [address] [place] [address] Care Team Providers Care Mail Service Coordinator Name Role Phone Nikki Alcantar MD Primary Care Provider [phone] Michelle Norris MD Primary Care Provider Unavail [facility] Primary Care Provider [facility] Michelle Norris MD Primary Care Provider Unavail [facility] Rosetta Diamond MD Primary Care Provider + Encounter Details Date Type Department Care Team Description 10/05/2006 Hospital Medical Records [address] [place] [address] Subhash Mcdaniel Social History Tobacco Use Types [...] on filedocumented in this encounter Care Teams Mail Service Coordinator Relationship Specialty Start Date End Date Nikki Alcantar MD [address] [place] [address]92 PCP - General 06/26/05 03/04/17 Michelle Norris MD [address] [place] [address] 66628 PCP - General Internal Medicine 03/05/17 03/16/21 [facility], Pcp [address] [place] [address] 43992 PCP - General Internal Medicine 03/17/21 05/04/21 Michelle Norris MD [address] [place] [address] 34682 PCP - General Internal Medicine 05/05/21 09/13/22 Rosetta Diamond MD [address] [place] [address] PCP - General Internal Medicine 09/14/22 documented as of this encounter
--- OUTSIDE RECORDS SUMMARY | 2025-01-28 17:36 | XMS_ITS | Encounter Summary ---
Author Organization [facility] Address [address] [place] [address] Care Team Providers Care Certified Nurse Operating Room Name Role Phone Michelle Norris MD Primary Care Provider Unavail able [facility], Pcp [facility] Michelle Norris MD Primary Care Provider Unavail able Rosetta Diamond MD Primary Care Provider + Encounter Details Date Type Department Care Team Description 03/27/2019 Hospital Medical Records [address] [place] [address] Sourav Lucas Social History Tobacco Use Types [...] filedocumented in this encounter Care Teams Certified Nurse Operating Room Relationship Specialty Start Date End Date Michelle Norris MD PCP - General Internal Medicine 03/05/17 03/16/21 [facility], Pcp PCP - General Internal Medicine 03/17/21 05/04/21 Michelle Norris MD PCP - General Internal Medicine 05/05/21 09/13/22 Rosetta Diamond MD [address] [place] [address] PCP - General Internal Medicine 09/14/22 documented as of this encounter
--- OUTSIDE RECORDS SUMMARY | 2025-01-28 17:36 | XMS_ITS | Encounter Summary ---
Author Organization [facility] Address [address] [place] [address] Care Team Providers Care Piano Stringer Name Role Phone Nikki Alcantar MD Primary Care Provider Michelle Norris MD Primary Care Provider Unavail [facility] Primary Care Provider [facility] Michelle Norris MD Primary Care Provider Unavail [facility] Rosetta Diamond MD Primary Care Provider + Encounter Details Date Type Department Care Team Description 10/26/2014 Hospital Medical Records [address] [place] [address] Social History Tobacco Use Types Packs/Day Years [...] on filedocumented in this encounter Care Teams Piano Stringer Relationship Specialty Start Date End Date Nikki Alcantar MD [address] [place] [address]794 PCP - General 06/26/05 03/04/17 Michelle Norris MD [address] [place] [address] PCP - General Internal Medicine 03/05/17 03/16/21 [facility], Pcp [address] [place] [address] 88263 PCP - General Internal Medicine 03/17/21 05/04/21 Michelle Norris MD [address] [place] [address] 74677 PCP - General Internal Medicine 05/05/21 09/13/22 Rosetta Diamond MD [address] [place] [address] KARTIK CHEN [address]248 PCP - General Internal Medicine 09/14/22 documented as of this encounter
--- OUTSIDE RECORDS SUMMARY | 2025-01-28 17:36 | XMS_ITS | Encounter Summary ---
Author Organization [facility] Address [address] [place] [address] Care Team Providers Care Nursery Supervisor Name Role Phone Michelle Norris MD Primary Care Provider Unavail [facility], Pcp [facility] Michelle Norris MD Primary Care Provider Unavail able Rosetta Diamond MD Primary Care Provider + Encounter Details Date Type Department Care Team Description 01/29/2018 Release of Information Medical Records [address] [place] [address] Abstract, Provider Social History Tobacco Use Types [...] on filedocumented in this encounter Care Teams Nursery Supervisor Relationship Specialty Start Date End Date Michelle Norris MD PCP - General Internal Medicine 03/05/17 03/16/21 [facility], Pcp PCP - General Internal Medicine 03/17/21 05/04/21 Michelle Norris MD PCP - General Internal Medicine 05/05/21 09/13/22 Rosetta Diamond MD [address] [place] [address]889 PCP - General Internal Medicine 09/14/22 documented as of this encounter
--- OUTSIDE RECORDS SUMMARY | 2025-01-28 17:36 | XMS_ITS | Encounter Summary ---
Author Organization [facility] Address [address] [place] [address] Care Team Providers Care Electron Microprobe Operator Name Role Phone Michelle Norris MD Primary Care Provider Unavail [facility], Pcp [facility] Michelle Norris MD Primary Care Provider Unavail able Rosetta Diamond MD Primary Care Provider + Encounter Details Date Type Department Care Team Description 04/13/2018 Hospital Medical Records [address] [place] [address] Social History Tobacco Use Types Packs/Day Years [...] on filedocumented in this encounter Care Teams Electron Microprobe Operator Relationship Specialty Start Date End Date Michelle Norris MD PCP - General Internal Medicine 03/05/17 03/16/21 [facility], Pcp PCP - General Internal Medicine 03/17/21 05/04/21 Michelle Norris MD PCP - General Internal Medicine 05/05/21 09/13/22 Rosetta Diamond MD [address] [place] [address] PCP - General Internal Medicine 09/14/22 documented as of this encounter
--- OUTSIDE RECORDS SUMMARY | 2025-01-28 17:36 | XMS_ITS | Encounter Summary ---
Author Organization [facility] Address [address] [place] [address] Care Team Providers Care Shrimp Peeling Machine Tender Name Role Phone Nikki Alcantar MD Primary Care Provider [phone] Michelle Norris MD Primary Care Provider Unavail [facility] Primary Care Provider [facility] Michelle Norris MD Primary Care Provider Unavail [facility] Rosetta Diamond MD Primary Care Provider + Encounter Details Date Type Department Care Team Description 10/10/2012 Hospital Medical Records [address] [place] [address] Miles Shah MD Social History Tobacco Use [...] on filedocumented in this encounter Care Teams Shrimp Peeling Machine Tender Relationship Specialty Start Date End Date Nikki Alcantar MD [address] [place] [address] PCP - General 06/26/05 03/04/17 Michelle Norris MD [address] [place] [address] 22460 PCP - General Internal Medicine 03/05/17 03/16/21 [facility], Pcp [address] [place] [address]335 PCP - General Internal Medicine 03/17/21 05/04/21 Michelle Norris MD [address] [place] [address] PCP - General Internal Medicine 05/05/21 09/13/22 Rosetta Diamond MD [address] [place] [address] PCP - General Internal Medicine 09/14/22 documented as of this encounter
--- OUTSIDE RECORDS SUMMARY | 2025-01-28 17:36 | XMS_ITS | Encounter Summary ---
Author Organization [facility] Address [address] [place] [address] Care Team Providers Care Hammer Runner Name Role Phone Michelle Norris MD Primary Care Provider Unavail able [facility], Pcp Primary Care Provider Unavailabl e Michelle Norris MD Primary Care Provider Unavail able Rosetta Diamond MD Primary Care Provider + Encounter Details Date Type Department Care Team Description 04/21/2019 Hospital Medical Records [address] [place] [address] Radha Sifuentes Social History Tobacco Use Types [...] on filedocumented in this encounter Care Teams Hammer Runner Relationship Specialty Start Date End Date Michelle Norris MD PCP - General Internal Medicine 03/05/17 03/16/21 [facility], Pcp PCP - General Internal Medicine 03/17/21 05/04/21 Michelle Norris MD PCP - General Internal Medicine 05/05/21 09/13/22 Rosetta Diamond MD [address] [place] [address] PCP - General Internal Medicine 09/14/22 documented as of this encounter
--- OUTSIDE RECORDS SUMMARY | 2025-01-28 17:36 | XMS_ITS | Encounter Summary ---
Author Organization [facility] Address [address] [place] [address] Care Team Providers Care Construction Equipment Mechanic Name Role Phone Nikki Alcantar MD Primary Care Provider [phone] Michelle Norris MD Primary Care Provider Unavail [facility] Primary Care Provider [facility] Michelle Norris MD Primary Care Provider Unavail [facility] Rosetta Diamond MD Primary Care Provider + Encounter Details Date Type Department Care Team Description 07/18/2012 Wire Frame Lamp Shade Maker Report Medical Records [address] [place] [address] Julio Paredes MD Social History Tobacco Use [...] filedocumented in this encounter Care Teams Construction Equipment Mechanic Relationship Specialty Start Date End Date Nikki Alcantar MD [address] [place] [address] PCP - General 06/26/05 03/04/17 Michelle Norris MD [address] [place] [address] PCP - General Internal Medicine 03/05/17 03/16/21 [facility], Pcp [address] [place] [address] PCP - General Internal Medicine 03/17/21 05/04/21 Michelle Norris MD [address] [place] [address] [place] [address] PCP - General Internal Medicine 05/05/21 09/13/22 Rosetta Diamond MD [address] [place], [place] [phone] PCP - General Internal Medicine 09/14/22 documented as of this encounter
--- OUTSIDE RECORDS SUMMARY | 2025-01-28 17:36 | XMS_ITS | Encounter Summary ---
Author Organization [facility] Address [address] [place] [address] Care Team Providers Care Zigzag Topstitcher Name Role Phone Nikki Alcantar MD Primary Care Provider [phone] Michelle Norris MD Primary Care Provider Unavail [facility] Primary Care Provider [facility] Michelle Norris MD Primary Care Provider Unavail [facility] Rosetta Diamond MD Primary Care Provider + Encounter Details Date Type Department Care Team Description 11/26/2007 Hospital Medical Records [address] [place] [address] Saúl Francisco Social History Tobacco Use Types [...] on filedocumented in this encounter Care Teams Zigzag Topstitcher Relationship Specialty Start Date End Date Nikki Alcantar MD [address] [place] [address] PCP - General 06/26/05 03/04/17 Michelle Norris MD [address] [place] [address] PCP - General Internal Medicine 03/05/17 03/16/21 [facility], Pcp [address] [place] [address] PCP - General Internal Medicine 03/17/21 05/04/21 Michelle Norris MD [address] [place] [address] PCP - General Internal Medicine 05/05/21 09/13/22 Rosetta Diamond MD [address] [place], [place] [phone] PCP - General Internal Medicine 09/14/22 documented as of this encounter
--- OUTSIDE RECORDS SUMMARY | 2025-01-28 17:36 | XMS_ITS | Encounter Summary ---
Author Organization [facility] Address [address] [place] [address] Care Team Providers Care Second Mate Name Role Phone Michelle Norris MD Primary Care Provider Unavail [facility] Norris MD Primary Care Provider Unavail able Rosetta Diamond MD Primary Care Provider + Encounter Details Date Type Department Care Team Description 08/30/2018 Business Doc Medical Records [address] [place] [address] Abstract, Provider Social History Tobacco Use Types [...] on filedocumented in this encounter Care Teams Second Mate Relationship Specialty Start Date End Date Michelle Norris MD PCP - General Internal Medicine 03/05/17 03/16/21 [facility] PCP - General Internal Medicine 03/17/21 05/04/21 Michelle Norris MD PCP - General Internal Medicine 05/05/21 09/13/22 Rosetta Diamond MD [address] [place] [address] PCP - General Internal Medicine 09/14/22 documented as of this encounter
--- OUTSIDE RECORDS SUMMARY | 2025-01-28 17:36 | XMS_ITS | Encounter Summary ---
Author Organization [facility] Address [address] [place] [address] Care Team Providers Care Machine Spreader Name Role Phone Nikki Alcantar MD Primary Care Provider [phone] Michelle Norris MD Primary Care Provider Unavail [facility] Primary Care Provider [facility] Michelle Norris MD Primary Care Provider Unavail [facility] Rosetta Diamond MD Primary Care Provider + Encounter Details Date Type Department Care Team Description 03/13/2016 Hospital Medical Records [address] [place] [address] Carlos Landrum Social History Tobacco Use Types [...] filedocumented in this encounter Care Teams Machine Spreader Relationship Specialty Start Date End Date Nikki Alcantar MD [address] [place] [address] PCP - General 06/26/05 03/04/17 Michelle Norris MD [address] [place] [address] PCP - General Internal Medicine 03/05/17 03/16/21 [facility], Pcp [address] [place] [address] PCP - General Internal Medicine 03/17/21 05/04/21 Michelle Norris MD [address] [place] [address] PCP - General Internal Medicine 05/05/21 09/13/22 Rosetta Diamond MD [address] [place] [address] PCP - General Internal Medicine 09/14/22 documented as of this encounter
--- OUTSIDE RECORDS SUMMARY | 2025-01-28 17:36 | XMS_ITS | Encounter Summary ---
Author Organization [facility] Address [address] [place] [address] Care Team Providers Care Product Introduction Manager Name Role Phone Nikki Alcantar MD Primary Care Provider [phone] Michelle Norris MD Primary Care Provider Unavail [facility] Primary Care Provider [facility] Michelle Norris MD Primary Care Provider Unavail [facility] Rosetta Diamond MD Primary Care Provider + Encounter Details Date Type Department Care Team Description 12/26/2015 Hospital Medical Records [address] [place] [address] Angelique Moore Social History Tobacco Use Types [...] filedocumented in this encounter Care Teams Product Introduction Manager Relationship Specialty Start Date End Date Nikki Alcantar MD [address] [place] [address] PCP - General 06/26/05 03/04/17 Michelle Norris MD [address] [place] [address] PCP - General Internal Medicine 03/05/17 03/16/21 [facility], Pcp [address] [place] [address] PCP - General Internal Medicine 03/17/21 05/04/21 Michelle Norris MD [address] [place] [address] [place] [address] PCP - General Internal Medicine 05/05/21 09/13/22 Rosetta Diamond MD [address] [place], [place] [phone] PCP - General Internal Medicine 09/14/22 documented as of this encounter
--- OUTSIDE RECORDS SUMMARY | 2025-01-28 17:36 | XMS_ITS | Encounter Summary ---
Author Organization [facility] Address [address] [place] [address] Care Team Providers Care Carriage Feeder Name Role Phone Nikki Alcantar MD Primary Care Provider [phone] Michelle Norris MD Primary Care Provider Unavail [facility] Primary Care Provider [facility] Michelle Norris MD Primary Care Provider Unavail able Rosetta Diamond MD Primary Care Provider + Encounter Details Date Type Department Care Team Description 12/20/2007 [facility] Medical Records [address] [place] [address] Abstract, Provider Social History Tobacco Use Types [...] filedocumented in this encounter Care Teams Carriage Feeder Relationship Specialty Start Date End Date Nikki Alcantar MD [address] [place] [address] PCP - General 06/26/05 03/04/17 Michelle Nroris MD [address] [place] [address] PCP - General Internal Medicine 03/05/17 03/16/21 [facility], [address] [address] PCP - General Internal Medicine 03/17/21 05/04/21 Michelle Norris MD [address] [place] [address] PCP - General Internal Medicine 05/05/21 09/13/22 Rosetta Diamond MD [address] [place] [address] PCP - General Internal Medicine 09/14/22 documented as of this encounter
--- OUTSIDE RECORDS SUMMARY | 2025-01-28 17:36 | XMS_ITS | Encounter Summary ---
Author Organization [facility] Address [address] [place] [address] Care Team Providers Care Ethnoarchaeology Professor Name Role Phone Michelle Norris MD Primary Care Provider Unavail able [facility] Michelle Lagos MD Primary Care Provider Unavail able Rosetta Diamond MD Primary Care Provider + Reason for Visit * Reason Onset Date Comments Orders Call 01/25/2018 Encounter Details Date Type Department Care Team Description 01/25/2018 Telephone OBGYN - [place] [address] [place] [address] Ying Morton MD [address] [place] [address] Orders Call Social History Tobacco Use Types [...] has the patient had this problem? Pt???s SHIFT LEADER provider: Ying Morton M.D. Last menstrual period (LMP) or EDC (due date): N/A documented in this encounter Plan of Treatment Not on file documented as of this encounter Visit Diagnoses Not on filedocumented in this encounter Care Teams Ethnoarchaeology Professor Relationship Specialty Start Date End Date Michelle Norris MD PCP - General Internal Medicine 03/05/17 03/16/21 [facility] PCP - General Internal Medicine 03/17/21 05/04/21 Michelle Norris MD PCP - General Internal Medicine 05/05/21 09/13/22 Rosetta Diamond MD [address] [place] [address] PCP - General Internal Medicine 09/14/22 documented as of this encounter
--- OUTSIDE RECORDS SUMMARY | 2025-01-28 17:36 | XMS_ITS | Encounter Summary ---
Author Organization [facility] Address [address] [place] [address] Care Team Providers Care Business Services Clerk Name Role Phone Nikki Alcantar MD Primary Care Provider [phone] Michelle Norris MD Primary Care Provider Unavail [facility] Primary Care Provider [facility] Michelle Norris MD Primary Care Provider [facility] Rosetta Diamond MD Primary Care Provider + Encounter Details Date Type Department Care Team Description 07/16/2014 Transfer Records Medical Records [address] [place] [address] Social History Tobacco Use Types Packs/Day Years [...] filedocumented in this encounter Care Teams Business Services Clerk Relationship Specialty Start Date End Date iNkki Alcantar MD [address] [place] [address] PCP - General 06/26/05 03/04/17 Michelle Norris MD [address] [place] [address] PCP - General Internal Medicine 03/05/17 03/16/21 Count Includes [facility], Pcp [address] [place] [address] PCP - General Internal Medicine 03/17/21 05/04/21 Michelle Norris MD [address] [place] [address] [place] [address] PCP - General Internal Medicine 05/05/21 09/13/22 Rosetta Diamond MD [address] [place], [place] [phone] PCP - General Internal Medicine 09/14/22 documented as of this encounter
--- OUTSIDE RECORDS SUMMARY | 2025-01-28 17:36 | XMS_ITS | Encounter Summary ---
Author Organization [facility] Address [address] [place] [address] Care Team Providers Care Shipper And Receiving Name Role Phone Michelle Norris MD Primary Care Provider [facility]cp [facility] Michelle Norris MD Primary Care Provider Unavail able Rosetta Diamond MD Primary Care Provider + Encounter Details Date Type Department Care Team Description 12/10/2017 Directory Operator Report Medical Records [address] [place] [address] Tony Groves MD Social History Tobacco Use [...] on filedocumented in this encounter Care Teams Shipper And Receiving Relationship Specialty Start Date End Date Michelle Norris MD PCP - General Internal Medicine 03/05/17 03/16/21 [facility], Pcp PCP - General Internal Medicine 03/17/21 05/04/21 Michelle Norris MD PCP - General Internal Medicine 05/05/21 09/13/22 Rosetta Diamond MD [address] [place] [address] PCP - General Internal Medicine 09/14/22 documented as of this encounter
--- OUTSIDE RECORDS SUMMARY | 2025-01-28 17:36 | XMS_ITS | Encounter Summary ---
Author Organization [facility] Address [address] [place] [address] Care Team Providers Care Physics Professor Name Role Phone Nikki Alcantar MD Primary Care Provider [phone] Michelle Norris MD Primary Care Provider Unavail [facility] Primary Care Provider [facility] Michelle Norris MD Primary Care Provider Unavail [facility] Rosetta Diamond MD Primary Care Provider + Encounter Details Date Type Department Care Team Description 02/22/2012 Hospital Medical Records [address] [place] [address] Marlen Grande Social History Tobacco Use Types [...] on filedocumented in this encounter Care Teams Physics Professor Relationship Specialty Start Date End Date Nikki Alcantar MD [address] [place] [address] PCP - General 06/26/05 03/04/17 Michelle Norris MD [address] [place] [address] PCP - General Internal Medicine 03/05/17 03/16/21 [facility], Pcp [address] [place] [address] PCP - General Internal Medicine 03/17/21 05/04/21 Michelle Norris MD [address] [place] [address] PCP - General Internal Medicine 05/05/21 09/13/22 Rosetta Diamond MD [address] [place] [address] PCP - General Internal Medicine 09/14/22 documented as of this encounter
--- OUTSIDE RECORDS SUMMARY | 2025-01-28 17:36 | XMS_ITS | Encounter Summary ---
Author Organization [facility] Address [address] [place] [address] Care Team Providers Care Purchasing Supervisor Name Role Phone Michelle Norris MD Primary Care Provider Unavail able [facility], Pcp Primary Care Provider [facility] Michelle Lagos MD Primary Care Provider Unavail able Rosetta Diamond MD Primary Care Provider + Reason for Visit * Reason Onset Date Comments Faxed Order 01/25/2018 Encounter Details Date Type Department Care Team Description 01/25/2018 Telephone Adult [address] [address] Michelle Norris MD Faxed Order Social History [...] * Telephone Encounter - Emerald Chavarria - 01/25/2018 11:18 AM EDT Faxed orders from ([facility] documented in this encounter Plan of Treatment Not on file documented as of this encounter Visit Diagnoses Not on filedocumented in this encounter Care Teams Purchasing Supervisor Relationship Specialty Start Date End Date Michelle Norris MD PCP - General Internal Medicine 03/05/17 03/16/21 [facility], Pcp PCP - General Internal Medicine 03/17/21 05/04/21 Michelle Norris MD PCP - General Internal Medicine 05/05/21 09/13/22 Rosetta Diamond MD [address] [place] [address] PCP - General Internal Medicine 09/14/22 documented as of this encounter
--- OUTSIDE RECORDS SUMMARY | 2025-01-28 17:36 | XMS_ITS | Encounter Summary ---
Author Organization [facility] Address [address] [place] [address] Care Team Providers Care Shake Sawyer Name Role Phone Nikki Alcantar MD Primary Care Provider [phone] Michelle Norris MD Primary Care Provider Unavail [facility] Primary Care Provider [facility] Michelle Norris MD Primary Care Provider Unavail [facility] Rosetta Diamond MD Primary Care Provider + Encounter Details Date Type Department Care Team Description 07/05/2012 Hospital Medical Records [address] [place] [address] Rod Mccoy MD Social History Tobacco Use [...] on filedocumented in this encounter Care Teams Shake Sawyer Relationship Specialty Start Date End Date Nikki Alcantar MD [address] [place] [address] PCP - General 06/26/05 03/04/17 Michelle Norris MD [address] [place] [address] PCP - General Internal Medicine 03/05/17 03/16/21 [facility], Pcp [address] [place] [address] PCP - General Internal Medicine 03/17/21 05/04/21 Michelle Norris MD [address] [place] [address] PCP - General Internal Medicine 05/05/21 09/13/22 Rosetta Diamond MD [address] [place] [address] PCP - General Internal Medicine 09/14/22 documented as of this encounter
--- OUTSIDE RECORDS SUMMARY | 2025-01-28 17:36 | XMS_ITS | Encounter Summary ---
Author Organization [facility] Address [address] [place] [address] Care Team Providers Care Subcontracts Manager Name Role Phone Nikki Alcantar MD Primary Care Provider [phone] Michelle Norris MD Primary Care Provider Unavail [facility] Primary Care Provider [facility] Michelle Norris MD Primary Care Provider Unavail [facility] Rosetta Diamond MD Primary Care Provider + Encounter Details Date Type Department Care Team Description 07/31/2012 General Manager Food Report Medical Records [address] [place] [address] Julio Paredes MD Social History Tobacco Use [...] on filedocumented in this encounter Care Teams Subcontracts Manager Relationship Specialty Start Date End Date Nikki Alcantar MD [address] [place] [address] PCP - General 06/26/05 03/04/17 Michelle Norris MD [address] [place] [address] PCP - General Internal Medicine 03/05/17 03/16/21 [facility], Pcp [address] [place] [address] PCP - General Internal Medicine 03/17/21 05/04/21 Michelle Norris MD [address] [place] [address] [place] [address] PCP - General Internal Medicine 05/05/21 09/13/22 Rosetta Diamond MD [address] [place], [place] [phone] PCP - General Internal Medicine 09/14/22 documented as of this encounter
--- OUTSIDE RECORDS SUMMARY | 2025-01-28 17:36 | XMS_ITS | Encounter Summary ---
Author Organization [facility] Address [address] [place] [address] Care Team Providers Care Environment Coordinator Name Role Phone Michelle Norris MD Primary Care Provider Unavail able [facility], Pcp [facility] Michelle Lagos MD Primary Care Provider Unavail able Rosetta Diamond MD Primary Care Provider + Reason for Visit * Reason Onset Date Comments hospital follow up 01/31/2018 Encounter Details Date Type Department Care Team Description 01/31/2018 Telephone Adult Medicine [address] [address] Michelle Norris MD hospital follow up Social [...] fax notes Hospital patient was treated at: [facility] Was this only an ER visit [...] on filedocumented in this encounter Care Teams Environment Coordinator Relationship Specialty Start Date End Date Michelle Norris MD PCP - General Internal Medicine 03/05/17 03/16/21 [facility] PCP - General Internal Medicine 03/17/21 05/04/21 Michelle Norris MD PCP - General Internal Medicine 05/05/21 09/13/22 Rosetta Diamond MD [address] [place] [address] PCP - General Internal Medicine 09/14/22 documented as of this encounter
--- OUTSIDE RECORDS SUMMARY | 2025-01-28 17:36 | XMS_ITS | Encounter Summary ---
Author Organization [facility] Address [address] [place] [address] Care Team Providers Care Asbestos Siding Mechanic Name Role Phone Nikki Alcantar MD Primary Care Provider [phone] Michelle Norris MD Primary Care Provider Unavail [facility] Primary Care Provider [facility] Michelle Norris MD Primary Care Provider Unavail [facility] Rosetta Diamond MD Primary Care Provider + Encounter Details Date Type Department Care Team Description 04/21/2008 Hospital Medical Records [address] [place] [address] Bandar Paul Social History Tobacco Use Types [...] on filedocumented in this encounter Care Teams Asbestos Siding Mechanic Relationship Specialty Start Date End Date Nikki Alcantar MD [address] [place] [address] PCP - General 06/26/05 03/04/17 Michelle Norris MD [address] [place] [address] PCP - General Internal Medicine 03/05/17 03/16/21 [facility], Pcp [address] [place] [address] PCP - General Internal Medicine 03/17/21 05/04/21 Michelle Norris MD [address] [place], [place] [phone] PCP - General Internal Medicine 05/05/21 09/13/22 Rosetta Diamond MD [address] [place] [address] PCP - General Internal Medicine 09/14/22 documented as of this encounter
--- OUTSIDE RECORDS SUMMARY | 2025-01-28 17:36 | XMS_ITS | Encounter Summary ---
Author Organization [facility] Address [address] [place] [address] Care Team Providers Care Water Plant Maintenance Mechanic Name Role Phone Nikki Alcantar MD Primary Care Provider [phone] Michelle Norris MD Primary Care Provider Unavail [facility] Primary Care Provider [facility] Michelle Norris MD Primary Care Provider Unavail [facility] Rosetta Diamond MD Primary Care Provider + Encounter Details Date Type Department Care Team Description 07/05/2012 Transfer Records Medical Records [address] [place] [phone] Abstract, Provider Social History Tobacco Use Types [...] filedocumented in this encounter Care Teams Water Plant Maintenance Mechanic Relationship Specialty Start Date End Date Nikki Alcantar MD [address] [place] [address] PCP - General 06/26/05 03/04/17 Michelle Norris MD [address] [place] [address] PCP - General Internal Medicine 03/05/17 03/16/21 [facility], Pcp [address] [place] [address] PCP - General Internal Medicine 03/17/21 05/04/21 Michelle Norris MD [address] [place] [address] PCP - General Internal Medicine 05/05/21 09/13/22 Rosetta Diamond MD [address] [place], [place] [phone] PCP - General Internal Medicine 09/14/22 documented as of this encounter
--- OUTSIDE RECORDS SUMMARY | 2025-01-28 17:36 | XMS_ITS | Encounter Summary ---
Author Organization [facility] Address [address] [place] [address] Care Team Providers Care Planting Material Remover Name Role Phone Michelle Norris MD Primary Care Provider Unavail able [facility] Primary Care Provider Michelle Abdi MD Primary Care Provider Unavail able Rosetta Diamond MD Primary Care Provider + Reason for Visit * Reason Onset Date Comments TEST RESULTS 06/10/2019 result notes Encounter Details Date Type Department Care Team Description 06/10/2019 Telephone Adult Medicine [address] [address] Lona Rowell PA-C TEST RESULTS (result notes) [...] 06/12/2019 1:56 PM EDT Alfonzo at patient's [facility] advised and they confirmed her appointment on 06-24-19 w/. * Telephone Encounter - Linda Torres M.A. - 06/11/2019 2:03 PM EDT Left message for patient to return call. * Telephone Encounter - Radha Robles - 06/11/2019 11:20 AM EDT Patient returning phone call [phone] * Telephone Encounter - Linda Torres M.A. [...] on filedocumented in this encounter Care Teams Planting Material Remover Relationship Specialty Start Date End Date Michelle Norris MD PCP - General Internal Medicine 03/05/17 03/16/21 [facility] PCP - General Internal Medicine 03/17/21 05/04/21 Michelle Norris MD PCP - General Internal Medicine 05/05/21 09/13/22 Rosetta Diamond MD [address] [place] [address] PCP - General Internal Medicine 09/14/22 documented as of this encounter
--- OUTSIDE RECORDS SUMMARY | 2025-01-28 17:36 | XMS_ITS | Encounter Summary ---
Author Organization [facility] Address [address] [place] [address] Care Team Providers Care Certified Medical Aide Name Role Phone Nikki Alcantar MD Primary Care Provider [phone] Michelle Norris MD Primary Care Provider Unavail [facility] Primary Care Provider [facility] Michelle Norris MD Primary Care Provider Unavail [facility] Rosetta Diamond MD Primary Care Provider + Encounter Details Date Type Department Care Team Description 04/01/2009 Hospital Medical Records [address] [place] [id number] Social History Tobacco Use Types Packs/Day Years [...] filedocumented in this encounter Care Teams Certified Medical Aide Relationship Specialty Start Date End Date Nikki Alcantar MD [address] [place] [address]36 PCP - General 06/26/05 03/04/17 Michelle Norris MD [address] [place] [address] 16323 PCP - General Internal Medicine 03/05/17 03/16/21 [facility], Pcp [address] [place] [address] 01129 PCP - General Internal Medicine 03/17/21 05/04/21 Michelle Norris MD [address] [place] [address] 00003 PCP - General Internal Medicine 05/05/21 09/13/22 Rosetta Diamond MD [address] [place] [address] KARTIK CHEN [address] PCP - General Internal Medicine 09/14/22 documented as of this encounter
--- OUTSIDE RECORDS SUMMARY | 2025-01-28 17:36 | XMS_ITS | Encounter Summary ---
Author Organization [facility] Address [address] [place] [address] Care Team Providers Care Freight Conductor Name Role Phone Nikki Alcantar MD Primary Care Provider [phone] Michelle Norris MD Primary Care Provider Unavail able [facility] Michelle Norris MD Primary Care Provider Unavail able Rosetta Diamond MD Primary Care Provider + Encounter Details Date Type Department Care Team Description 09/29/2012 Telephone Adult Medicine [facility] [address] [place] [address] [phone] Nikki Alcantar MD [address] [place] [address] [phone] Social History Tobacco Use Types Packs/Day Years [...] on filedocumented in this encounter Care Teams Freight Conductor Relationship Specialty Start Date End Date Nikki Alcantar MD [address] [place] [address] PCP - General 06/26/05 03/04/17 Michelle Norris MD [address] [place], [place] [phone] PCP - General Internal Medicine 03/05/17 03/16/21 [place] [address] PCP - General Internal Medicine 03/17/21 05/04/21 Michelle Norris MD [address] [place] [address] PCP - General Internal Medicine 05/05/21 09/13/22 Rosetta Diamond MD [address] [place] [address] PCP - General Internal Medicine 09/14/22 documented as of this encounter
--- OUTSIDE RECORDS SUMMARY | 2025-01-28 17:36 | XMS_ITS | Encounter Summary ---
Author Organization [facility] Address [address] [place] [address] Care Team Providers Care Thai Masseur Name Role Phone Michelle Norris MD Primary Care Provider Unavail able [facility] Michelle Lagos MD Primary Care Provider Unavail able Rosetta Diamond MD Primary Care Provider + Reason for Visit * Reason Comments E-prescribe Rx Request Encounter Details Date Type Department Care Team Description 08/11/2018 Refill OBGYN - [place] [address] [place] [address] Chel Stapleton CNM [address] [place], [place] [phone] E-prescribe Rx Request Social History Tobacco Use [...] EDT WHEN WAS THE PATIENTS LAST ANNUAL CAKE WASHER EXAM? 07/19/17 Does patient have an upcoming [...] / Plan: [place] / Product Type: MEDICARE [id number] documented in this encounter Plan of Treatment Not on file documented as of this encounter Visit Diagnoses Diagnosis Encounter for initial prescription of contraceptive pills General counseling for prescription of oral contraceptives documented in this encounter Care Teams Thai Masseur Relationship Specialty Start Date End Date Michelle Norris MD PCP - General Internal Medicine 03/05/17 03/16/21 [facility] PCP - General Internal Medicine 03/17/21 05/04/21 Michelle Norris MD PCP - General Internal Medicine 05/05/21 09/13/22 Rosetta Diamond MD [address] [place] [address] PCP - General Internal Medicine 09/14/22 documented as of this encounter
--- OUTSIDE RECORDS SUMMARY | 2025-01-28 17:36 | XMS_ITS | Encounter Summary ---
Author Organization [facility] Address [address] [place] [address] Care Team Providers Care Dry Placer Machine Operator Name Role Phone Michelle Norris MD Primary Care Provider Unavail able [facility] Michelle Norris MD Primary Care Provider Unavail able Rosetta Diamond MD Primary Care Provider + Encounter Details Date Type Department Care Team Description 04/21/2019 Hospital Medical Records [address] [place] [id number] Ron Frausto Social History Tobacco Use Types [...] filedocumented in this encounter Care Teams Dry Placer Machine Operator Relationship Specialty Start Date End Date Michelle Norris MD PCP - General Internal Medicine 03/05/17 03/16/21 [facility], Pcp PCP - General Internal Medicine 03/17/21 05/04/21 Michelle Norris MD PCP - General Internal Medicine 05/05/21 09/13/22 Rosetta Diamond MD [address] [place] [address] PCP - General Internal Medicine 09/14/22 documented as of this encounter
--- OUTSIDE RECORDS SUMMARY | 2025-01-28 17:36 | XMS_ITS | Encounter Summary ---
Author Organization [facility] Address [address] [place] [address] Care Team Providers Care Certified Pathology Assistant Name Role Phone Nikki Alcantar MD Primary Care Provider [phone] Michelle Norris MD Primary Care Provider Unavail able [facility] Primary Care Provider [facility] Michelle Norris MD Primary Care Provider Unavail able Rosetta Diamond MD Primary Care Provider + Reason for Visit * Reason Onset Date Comments Provider Call Back 11/26/2014 Encounter Details Date Type Department Care Team Description 11/26/2014 Telephone Adult Medicine [address] [phone] iNkki Alcantar MD [address] [place] [address] [phone] Provider Call Back Social History Tobacco Use [...] Patient Was treated by behavioral health at [facility] Yesterday She is doing ok , no call backneeded documented in this encounter Plan of Treatment Not on file documented as of this encounter Visit Diagnoses Not on filedocumented in this encounter Care Teams Certified Pathology Assistant Relationship Specialty Start Date End Date Nikki Alcantar MD [address] [place] [address] PCP - General 06/26/05 03/04/17 Michelle Norris MD [address] [place] [address] 45647 PCP - General Internal Medicine 03/05/17 03/16/21 [place] [phone] PCP - General Internal Medicine 03/17/21 05/04/21 Michelle Norris MD [address] [place] [address] 66[address] PCP - General Internal Medicine 05/05/21 09/13/22 Rosetta Diamond MD [address] [place], [place] [phone] PCP - General Internal Medicine 09/14/22 documented as of this encounter
--- OUTSIDE RECORDS SUMMARY | 2025-01-28 17:37 | XMS_ITS | Encounter Summary ---
Author Organization [facility] Address [address] [place] [address] Care Team Providers Care Speed Operator Name Role Phone Nikki Alcantar MD Primary Care Provider [phone] Michelle Norris MD Primary Care Provider Unavail [facility] Primary Care Provider [facility] Michelle Norris MD Primary Care Provider Unavail [facility] Rosetta Diamond MD Primary Care Provider + Encounter Details Date Type Department Care Team Description 07/10/2013 Hospital Medical Records [address] [place] [id number] Erik Sanches Social History Tobacco Use Types [...] on filedocumented in this encounter Care Teams Speed Operator Relationship Specialty Start Date End Date Nikki Alcantar MD [address] [place] [address] 27197 PCP - General 06/26/05 03/04/17 Michelle Norris MD [address] [place] [address] 24885 PCP - General Internal Medicine 03/05/17 03/16/21 [facility], Pcp [address] [place] [address] 71298 PCP - General Internal Medicine 03/17/21 05/04/21 Michelle Norris MD [address] [place] [address] 68876 PCP - General Internal Medicine 05/05/21 09/13/22 Rosetta Diamond MD [address] [place] [address] 0[address] PCP - General Internal Medicine 09/14/22 documented as of this encounter
--- OUTSIDE RECORDS SUMMARY | 2025-01-28 17:37 | XMS_ITS | Encounter Summary ---
Author Organization [facility] Address [address] [place] [address] Care Team Providers Care Hairspring Inspector Name Role Phone Nikki Alcantar MD Primary Care Provider [phone] Michelle Norris MD Primary Care Provider Unavail able [facility] Michelle Norris MD Primary Care Provider Unavail able Rosetta Diamond MD Primary Care Provider + Reason for Visit * Reason Onset Date Comments Call From Hospital 03/23/2015 Encounter Details Date Type Department Care Team Description 03/23/2015 Telephone Adult Medicine [address] [phone] Nikki Alcantar MD [address] [place] [address] [phone] Call From Hospital Social History Tobacco Use [...] EDT fyi to dr josé Porter from [facility] psych unit called to notify Dr Alcantar that patient was admitted on 03/21/15 documented in this encounter Plan of Treatment Not on file documented as of this encounter Visit Diagnoses Not on filedocumented in this encounter Care Teams Hairspring Inspector Relationship Specialty Start Date End Date Nikki Alcantar MD [address] [place] [address] PCP - General 06/26/05 03/04/17 Michelle Norris MD [address] [place], [place] [phone] PCP - General Internal Medicine 03/05/17 03/16/21 [place] [address] PCP - General Internal Medicine 03/17/21 05/04/21 Michelle Norris MD [address] [place] [address] PCP - General Internal Medicine 05/05/21 09/13/22 Rosetta Diamond MD [address] [place], [place] [phone] PCP - General Internal Medicine 09/14/22 documented as of this encounter
--- OUTSIDE RECORDS SUMMARY | 2025-01-28 17:37 | XMS_ITS | Encounter Summary ---
Author Organization [facility] Address [address] [place] [address] Care Team Providers Care Director Case Name Role Phone Nikki Alcantar MD Primary Care Provider Michelle Norris MD Primary Care Provider Unavail [facility] Primary Care Provider [facility] Michelle Norris MD Primary Care Provider Unavail [facility] Rosetta Diamond MD Primary Care Provider + Encounter Details Date Type Department Care Team Description 09/30/2010 Hospital Medical Records [address] [place] [phone] Rolando Ku Social History Tobacco Use Types [...] filedocumented in this encounter Care Teams Director Case Relationship Specialty Start Date End Date Nikki Alcantar MD [address] [place] [address] PCP - General 06/26/05 03/04/17 Michelle Norris MD [address] [place] [address] PCP - General Internal Medicine 03/05/17 03/16/21 [facility], Pcp [address] [place] [address] PCP - General Internal Medicine 03/17/21 05/04/21 Michelle Norris MD [address] [place] [address] [place] [address] PCP - General Internal Medicine 05/05/21 09/13/22 Rosetta Diamond MD [address] [place], [place] [phone] PCP - General Internal Medicine 09/14/22 documented as of this encounter
--- OUTSIDE RECORDS SUMMARY | 2025-01-28 17:37 | XMS_ITS | Encounter Summary ---
Author Organization [facility] Address [address] [place] [address] Care Team Providers Care Crystalizer Operator Name Role Phone Nikki Alcantar MD Primary Care Provider [phone] Michelle Norris MD Primary Care Provider Unavail [facility] Primary Care Provider [facility] Michelle Norris MD Primary Care Provider Unavail [facility] Rosetta Diamond MD Primary Care Provider + Encounter Details Date Type Department Care Team Description 10/28/2009 Hospital Medical Records [address] [place] [phone] Jose Echols MD Social History Tobacco Use [...] on filedocumented in this encounter Care Teams Crystalizer Operator Relationship Specialty Start Date End Date Nikki Alcantar MD [address] [place] [address] 85893 PCP - General 06/26/05 03/04/17 Michelle Norris MD [address] [place] [address] 74588 PCP - General Internal Medicine 03/05/17 03/16/21 [facility], Pcp [address] [place] [address] 25158 PCP - General Internal Medicine 03/17/21 05/04/21 Michelle Norris MD [address] [place] [address] 92721 PCP - General Internal Medicine 05/05/21 09/13/22 Rosetta Diamond MD [address] [place] [address] PCP - General Internal Medicine 09/14/22 documented as of this encounter
--- OUTSIDE RECORDS SUMMARY | 2025-01-28 17:37 | XMS_ITS | Encounter Summary ---
Author Organization [facility] Address [address] [place] [address] Care Team Providers Care Reed Maker Name Role Phone Michelle Norris MD Primary Care Provider Unavail able [facility] Primary Care Provider [facility] Michelle Lagos MD Primary Care Provider Unavail able Rosetta Diamond MD Primary Care Provider + Reason for Visit * Reason Onset Date Comments [facility] Call 02/24/2021 Encounter Details Date Type Department Care Team Description 02/24/2021 Telephone Adult Medicine [address] [address] Michelle Norris MD [facility] Call Social History [...] know that the patient was sent to [facility] on 02/21/21. Does caller need an urgent call back? NO Was CONTACT Telephone # obtained above?: YES Fax #: documented in this encounter Plan of Treatment Not on file documented as of this encounter Visit Diagnoses Not on filedocumented in this encounter Care Teams Reed Maker Relationship Specialty Start Date End Date Michelle Norris MD PCP - General Internal Medicine 03/05/17 03/16/21 [facility] PCP - General Internal Medicine 03/17/21 05/04/21 Michelle Norris MD PCP - General Internal Medicine 05/05/21 09/13/22 Rosetta Diamond MD [address] [place] [address] PCP - General Internal Medicine 09/14/22 documented as of this encounter
--- OUTSIDE RECORDS SUMMARY | 2025-01-28 17:37 | XMS_ITS | Encounter Summary ---
Author Organization [facility] Address [address] [place] [address] Care Team Providers Care Power Wheelchair Mechanic Name Role Phone Michelle Norris MD Primary Care Provider Unavail able [facility] Michelle Norris MD Primary Care Provider Unavail able Rosetta Diamond MD Primary Care Provider + Encounter Details Date Type Department Care Team Description 10/07/2018 Hospital Medical Records [address] [place] [address] Errol Snyder [address] [place] [address] [phone] Social History Tobacco Use Types Packs/Day Years [...] on filedocumented in this encounter Care Teams Power Wheelchair Mechanic Relationship Specialty Start Date End Date Michelle Norris MD PCP - General Internal Medicine 03/05/17 03/16/21 [facility], Pcp PCP - General Internal Medicine 03/17/21 05/04/21 Michelle Norris MD PCP - General Internal Medicine 05/05/21 09/13/22 Rosetta Diamond MD [address] [place], [place] [phone] PCP - General Internal Medicine 09/14/22 documented as of this encounter
--- OUTSIDE RECORDS SUMMARY | 2025-01-28 17:37 | XMS_ITS | Encounter Summary ---
Author Organization [facility] Address [address] [place] [address] Care Team Providers Care Machinist Class B Name Role Phone Michelle Norris MD Primary Care Provider Unavail able [facility], Pcp Primary Care Provider Unavailabl e Michelle Norris MD Primary Care Provider Unavail able Rosetta Diamond MD Primary Care Provider + Encounter Details Date Type Department Care Team Description 09/21/2020 Hospital Medical Records [address] [place] [phone] Ibrahima Ron Social History Tobacco Use Types [...] on filedocumented in this encounter Care Teams Machinist Class B Relationship Specialty Start Date End Date Michelle Norris MD PCP - General Internal Medicine 03/05/17 03/16/21 [facility], Pcp PCP - General Internal Medicine 03/17/21 05/04/21 Michelle Norris MD PCP - General Internal Medicine 05/05/21 09/13/22 Rosetta Diamond MD [address] [place] [address] PCP - General Internal Medicine 09/14/22 documented as of this encounter
--- OUTSIDE RECORDS SUMMARY | 2025-01-28 17:37 | XMS_ITS | Encounter Summary ---
Author Organization [facility] Address [address] [place] [address] Care Team Providers Care Junior Underwriter Name Role Phone Nikki Alcantar MD Primary Care Provider [phone] Michelle Norris MD Primary Care Provider Unavail able [facility] Primary Care Provider [facility] Micehlle Norris MD Primary Care Provider Unavail [facility] Rosetta Diamond MD Primary Care Provider + Encounter Details Date Type Department Care Team Description 09/12/2011 Hospital Medical Records [address] [place] [address] Bandar Ryan [address] [facility] [address] [place] [address] Social History Tobacco Use Types Packs/Day Years [...] on filedocumented in this encounter Care Teams Junior Underwriter Relationship Specialty Start Date End Date Nikki Alcantar MD [address] [place] [address]26 PCP - General 06/26/05 03/04/17 Michelle Norris MD [address] [place] [address] 36775 PCP - General Internal Medicine 03/05/17 03/16/21 [facility], Pcp [address] [place] [address] 11479 PCP - General Internal Medicine 03/17/21 05/04/21 Michelle Norris MD [address] [place] [address] 39694 PCP - General Internal Medicine 05/05/21 09/13/22 Rosetta Diamond MD [address] [place] [address]20 PCP - General Internal Medicine 09/14/22 documented as of this encounter
--- OUTSIDE RECORDS SUMMARY | 2025-01-28 17:37 | XMS_ITS | Encounter Summary ---
Author Organization [facility] Address [address] [place] [address] Care Team Providers Care Photo Specialist Name Role Phone Nikki Alcantar MD Primary Care Provider [phone] Michelle Norris MD Primary Care Provider Unavail able [facility] Primary Care Provider [facility] Michelle Norris MD Primary Care Provider Unavail able Rosetta Diamond MD Primary Care Provider + Reason for Visit * Reason Onset Date Comments APPOINTMENT 10/26/2011 missed appointme nt w/Dr Alcantar Encounter Details Date Type Department Care Team Description 10/26/2011 Telephone Adult Medicine [address] [phone] Nikki Alcantar MD [address] [place] [address] [phone] APPOINTMENT (missed appointment w/Dr Alcantar) Social History [...] on filedocumented in this encounter Care Teams Photo Specialist Relationship Specialty Start Date End Date Nikki Alcantar MD [address] [place] [address] PCP - General 06/26/05 03/04/17 Michelle Norris MD [address] [place] [address] PCP - General Internal Medicine 03/05/17 03/16/21 [place] [address] PCP - General Internal Medicine 03/17/21 05/04/21 Michelle Norris MD [address] [place] [address] PCP - General Internal Medicine 05/05/21 09/13/22 Rosetta Diamond MD [address] [place] [address] PCP - General Internal Medicine 09/14/22 documented as of this encounter
--- OUTSIDE RECORDS SUMMARY | 2025-01-28 17:37 | XMS_ITS | Encounter Summary ---
Author Organization [facility] Address [address] [place] [address] Care Team Providers Care Ip Technology Transactions Attorney Name Role Phone Michelle Norris MD Primary Care Provider Unavail able [facility], P[facility] Primary Care Provider Michelle Abdi MD Primary Care Provider Unavail able Rosetta Diamond MD Primary Care Provider + Reason for Visit * Reason Onset Date Comments Faxed Order 11/05/2017 Encounter Details Date Type Department Care Team Description 11/05/2017 Telephone Adult [address] [address] Michelle Norris MD Faxed Order Social History [...] on filedocumented in this encounter Care Teams Ip Technology Transactions Attorney Relationship Specialty Start Date End Date Michelle Norris MD PCP - General Internal Medicine 03/05/17 03/16/21 [facility], Pcp PCP - General Internal Medicine 03/17/21 05/04/21 Michelle Norris MD PCP - General Internal Medicine 05/05/21 09/13/22 Rosetta Diamond MD [address] [place] [address] PCP - General Internal Medicine 09/14/22 documented as of this encounter
--- OUTSIDE RECORDS SUMMARY | 2025-01-28 17:37 | XMS_ITS | Clinical Summary ---
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 METHOD 11/25/2024 9:55 PM [facility] Coronavirus 229E Not Detected Not Detected LAB MICROBIOLOGY METHOD 11/25/2024 9:55 PM [facility] Coronavirus HKU1 Not Detected Not Detected LAB MICROBIOLOGY METHOD 11/25/2024 9:55 PM [facility] Coronavirus OC43 Not Detected Not Detected LAB MICROBIOLOGY METHOD 11/25/2024 9:55 PM [facility] Coronavirus NL63 Not Detected Not Detected LAB MICROBIOLOGY METHOD 11/25/2024 9:55 PM [facility] Parainfluenza Virus 1 Not Detected Not Detected LAB MICROBIOLOGY METHOD 11/25/2024 9:55 PM [facility] Parainfluenza Virus 2 Not Detected Not Detected LAB MICROBIOLOGY METHOD 11/25/2024 9:55 PM [facility] Parainfluenza Virus 3 Not Detected Not Detected LAB MICROBIOLOGY METHOD 11/25/2024 9:55 PM [facility] Parainfluenza Virus 4 Not Detected Not Detected LAB MICROBIOLOGY METHOD 11/25/2024 9:55 PM [facility] RSV PCR Not Detected Not Detected LAB MICROBIOLOGY METHOD 11/25/2024 9:55 PM [facility] Human Metapneumovirus A and B Not Detected Not Detected LAB MICROBIOLOGY METHOD 11/25/2024 9:55 PM [facility] Rhinovirus/Entero virus Not Detected Not Detected LAB MICROBIOLOGY METHOD 11/25/2024 9:55 PM [facility] Bordetella pertussis Not Detected [...] 9:55 PM EST [facility] SARS COV-2 Not Detected Not Detected LAB MICROBIOLOGY METHOD 11/25/2024 9:55 PM EST [facility] Sputum Both anterior nares / Unknown Non-blood Collection / Unknown 11/25/2024 8:24 PM EST 11/25/2024 8:52 PM EST [facility] - 11/25/2024 9:55 PM EST Testing was performed using the [employer] Respiratory Pathogen PCR Assay. All results must [...] detection. Jimmy Alfonso MD LAB MICROBIOLOGY - [facility] Final Result [facility] [address] [place] [address], * [place] top urine tube (11/02/2024 9:06 PM EST) Only the most recent of2 resultswithin the time period is included. Extra Tube Hold for add-ons. 11/03/2024 12:01 AM EST [facility] Comment:Auto resulted. Urine Urine specimen obtained by clean catch procedure / Unknown 11/02/2024 9:06 PM EST 11/02/2024 10:06 PM EST Jimmy Alfonso MD LAB URINE ORDERABLES Final Resu lt [place]A COLLINS [place] ([facility] [address] [place] [address], * Pap smear (04/22/2024) 04/22/2024 Narrative HISTORICAL TESTING LAB RESULTING AGENCY - 04/28/2024 11:46 AM EDT [id number] THINPREP PAP, IMAGED: NEGATIVE FOR SQUAMOUS INTRAEPITHELIAL [...] cancer risk category Low (<15%) Maribel Marquez [facility] XR PROCEDURES Final Result from Last 3 Months or Most Recently Relevant to Health Maintenance Insurance MEDICARE [place]ICAID - [place] Advance Directives Documents on File Type Date Recorded Patient Freight Associate Expl anation Health Care Decision (hx) 07/03/2023 [...] (hx) 07/03/2023 AD MARTINEZ DIRECTIVE Care Teams Interior Designer Relationship Specialty Start Date End Date Maribel Marquez [address] [place] [id number] PCP - General 09/08/24
--- OUTSIDE RECORDS SUMMARY | 2025-01-28 17:37 | XMS_ITS | Encounter Summary ---
Author Organization [facility] Address [address] [place] [address] Care Team Providers Care Label Stamper Name Role Phone Nikki Alcantar MD Primary Care Provider [phone] Michelle Norris MD Primary Care Provider Unavail [facility] Primary Care Provider [facility] Michelle Norris MD Primary Care Provider Unavail [facility] Rosetta Diamond MD Primary Care Provider + Encounter Details Date Type Department Care Team Description 02/01/2012 Business Doc Medical Records [address] [place] [id number] Abstract, Provider Social History Tobacco Use Types [...] on filedocumented in this encounter Care Teams Label Stamper Relationship Specialty Start Date End Date Nikki Alcantar MD [address] [place] [address] PCP - General 06/26/05 03/04/17 Michelle Norris MD [address] [place] [address] PCP - General Internal Medicine 03/05/17 03/16/21 [facility], Pcp [address] [place] [address] PCP - General Internal Medicine 03/17/21 05/04/21 Michelle Norris MD [address] [place] [address] PCP - General Internal Medicine 05/05/21 09/13/22 Rosetta Diamond MD [address] [place], [place] [phone] PCP - General Internal Medicine 09/14/22 documented as of this encounter
--- OUTSIDE RECORDS SUMMARY | 2025-01-28 17:37 | XMS_ITS | Encounter Summary ---
Author Organization [facility] Address [address] [place] [address] Care Team Providers Care Line Maintenance Name Role Phone Michelle Norris MD Primary Care Provider [facility]ail [facility], Pcp Primary Care Provider [facility] Michelle Norris MD Primary Care Provider Unavail able Rosetta Diamond MD Primary Care Provider + Encounter Details Date Type Department Care Team Description 03/10/2020 Hospital Medical Records [address] [place] [address] Marlen Grande Social History Tobacco Use Types [...] filedocumented in this encounter Care Teams Line Maintenance Relationship Specialty Start Date End Date Michelle Norris MD PCP - General Internal Medicine 03/05/17 03/16/21 [facility], Pcp PCP - General Internal Medicine 03/17/21 05/04/21 Michelle Norris MD PCP - General Internal Medicine 05/05/21 09/13/22 Rosetta Diamond MD [address] [place] [address] PCP - General Internal Medicine 09/14/22 documented as of this encounter
--- OUTSIDE RECORDS SUMMARY | 2025-01-28 17:37 | XMS_ITS | Encounter Summary ---
Author Organization [facility] Address [address] [place] [address] Care Team Providers Care Outside Contractor Sales Name Role Phone Nikki Alcantar MD Primary Care Provider [phone] Michelle Norris MD Primary Care Provider Unavail [facility] Primary Care Provider [facility] Michelle Norris MD Primary Care Provider Unavail able Rosetta Diamond MD Primary Care Provider + Reason for Visit * Reason Onset Date Comments refill request 07/18/2011 Encounter Details Date Type Department Care Team Description 07/18/2011 Refill Adult Medicine [address] [phone] Nikki Alcantar MD [address] [place] [address] [phone] refill request Social History Tobacco Use Types [...] NO Patients current insurance carrier is: Payor: MEDICARE-AR Plan: MEDICARE-AR Product Type: MEDICARE [id number] documented in this encounter Plan of Treatment Not on file documented as of this encounter Visit Diagnoses Not on filedocumented in this encounter Care Teams Outside Contractor Sales Relationship Specialty Start Date End Date Nikki Alcantar MD [address] [place] [address] PCP - General 06/26/05 03/04/17 Michelle Norris MD [address] [place] [address] 04169 PCP - General Internal Medicine 03/05/17 03/16/21 [facility], Pcp [address] [place] [address] 28961 PCP - General Internal Medicine 03/17/21 05/04/21 Michelle Norris MD [address] [place] [address] 09356 PCP - General Internal Medicine 05/05/21 09/13/22 Rosetta Diamond MD [address] [place] [address] PCP - General Internal Medicine 09/14/22 documented as of this encounter
--- OUTSIDE RECORDS SUMMARY | 2025-01-28 17:37 | XMS_ITS | Encounter Summary ---
Author Organization [facility] Address [address] [place] [address] Care Team Providers Care Cup Setter Lockstitch Name Role Phone Michelle Norris MD Primary Care Provider [facility]ail [facility], Pcp Primary Care Provider [facility] Michelle Norris MD Primary Care Provider Unavail able Rosetta Diamond MD Primary Care Provider + Encounter Details Date Type Department Care Team Description 07/20/2017 Business Doc Medical Records [address] [place] [phone] Abstract, Provider Social History Tobacco Use Types [...] on filedocumented in this encounter Care Teams Cup Setter Lockstitch Relationship Specialty Start Date End Date Michelle Norris MD PCP - General Internal Medicine 03/05/17 03/16/21 [facility], Pcp PCP - General Internal Medicine 03/17/21 05/04/21 Michelle Norris MD PCP - General Internal Medicine 05/05/21 09/13/22 Rosetta Diamond MD [address] [place] [address] PCP - General Internal Medicine 09/14/22 documented as of this encounter
--- OUTSIDE RECORDS SUMMARY | 2025-01-28 17:37 | XMS_ITS | Encounter Summary ---
Author Organization [facility] Address [address] [place] [address] Care Team Providers Care Photoengraving Sketch Maker Name Role Phone Nikki Alcantar MD Primary Care Provider [phone] Michelle Norris MD Primary Care Provider Unavail [facility] Primary Care Provider [facility] Michelle Norris MD Primary Care Provider Unavail [facility] Rosetta Diamond MD Primary Care Provider + Encounter Details Date Type Department Care Team Description 09/30/2010 Hospital Medical Records [address] [place] [address] María ElenaShelly Social History Tobacco Use Types Packs/Day Years [...] on filedocumented in this encounter Care Teams Photoengraving Sketch Maker Relationship Specialty Start Date End Date Nikki Alcantar MD [address] [place] [address] PCP - General 06/26/05 03/04/17 Michelle Norris MD [address] [place] [address] 40777 PCP - General Internal Medicine 03/05/17 03/16/21 [facility], Pcp [address] [place] [address] PCP - General Internal Medicine 03/17/21 05/04/21 Michelle Norris MD [address] [place], [place] [phone] PCP - General Internal Medicine 05/05/21 09/13/22 Rosetta Diamond MD [address] [place] [address] PCP - General Internal Medicine 09/14/22 documented as of this encounter
--- OUTSIDE RECORDS SUMMARY | 2025-01-28 17:37 | XMS_ITS | Encounter Summary ---
Author Organization [facility] Address [address] [place] [address] Care Team Providers Care Clam Treader Name Role Phone Nikki Alcantar MD Primary Care Provider [phone] Michelle Norris MD Primary Care Provider Unavail [facility] Primary Care Provider [facility] Michelle Norris MD Primary Care Provider Unavail [facility] Rosetta Diamond MD Primary Care Provider + Encounter Details Date Type Department Care Team Description 12/16/2013 Hospital Medical Records [address] [place] [address] Marlen Grande Social History Tobacco Use Types [...] on filedocumented in this encounter Care Teams Clam Treader Relationship Specialty Start Date End Date Nikki Alcantar MD [address] [place] [address] PCP - General 06/26/05 03/04/17 Michelle Norris MD [address] [place] [address] 18912 PCP - General Internal Medicine 03/05/17 03/16/21 [facility], Pcp [address] [place] [address] PCP - General Internal Medicine 03/17/21 05/04/21 Michelle Norris MD [address] [place] [address] 48873 PCP - General Internal Medicine 05/05/21 09/13/22 Rosetta Diamond MD [address] [place] [address] PCP - General Internal Medicine 09/14/22 documented as of this encounter
--- OUTSIDE RECORDS SUMMARY | 2025-01-28 17:37 | XMS_ITS | Encounter Summary ---
Author Organization [facility] Address [address] [place] [address] Care Team Providers Care Automatic Line Set Up Mechanic Name Role Phone Nikki Alcantar MD Primary Care Provider Michelle Norris MD Primary Care Provider Unavail [facility] Primary Care Provider [facility] Michelle Norris MD Primary Care Provider Unavail [facility] Rosetta Diamond MD Primary Care Provider + Encounter Details Date Type Department Care Team Description 03/12/2015 Hospital Medical Records [address] [place] [address] Social History Tobacco Use Types Packs/Day Years [...] on filedocumented in this encounter Care Teams Automatic Line Set Up Mechanic Relationship Specialty Start Date End Date Nikki Alcantar MD [address] [place] [address]805 PCP - General 06/26/05 03/04/17 Michelle Norris MD [address] [place] [address] PCP - General Internal Medicine 03/05/17 03/16/21 [facility], Pcp [address] [place] [address] 39808 PCP - General Internal Medicine 03/17/21 05/04/21 Michelle Norris MD [address] [place] [address] 08457 PCP - General Internal Medicine 05/05/21 09/13/22 Rosetta Diamond MD [address] [place] [address] KARTIK CHEN [address] PCP - General Internal Medicine 09/14/22 documented as of this encounter
--- OUTSIDE RECORDS SUMMARY | 2025-01-28 17:37 | XMS_ITS | Encounter Summary ---
Author Organization [facility] Address [address] [place] [address] Care Team Providers Care Freight Car Repairer Name Role Phone Michelle Norris MD Primary Care Provider [facility]ail [facility], Pcp Primary Care Provider [facility] Michelle Norris MD Primary Care Provider Unavail able Rosetta Diamond MD Primary Care Provider + Encounter Details Date Type Department Care Team Description 10/16/2017 Hospital Medical Records [address] [place] [address] Carlos Landrum Social History Tobacco Use Types [...] filedocumented in this encounter Care Teams Freight Car Repairer Relationship Specialty Start Date End Date Michelle Norris MD PCP - General Internal Medicine 03/05/17 03/16/21 [facility] PCP - General Internal Medicine 03/17/21 05/04/21 Michelle Norris MD PCP - General Internal Medicine 05/05/21 09/13/22 Rosetta Diamond MD [address] [place] [address] PCP - General Internal Medicine 09/14/22 documented as of this encounter
--- OUTSIDE RECORDS SUMMARY | 2025-01-28 17:37 | XMS_ITS | Encounter Summary ---
Author Organization [facility] Address [address] [place] [address] Care Team Providers Care Manufacturing Group Leader Name Role Phone Nikki Alcanatr MD Primary Care Provider [phone] Michelle Norris MD Primary Care Provider Unavail [facility] Primary Care Provider [facility] Michelle Norris MD Primary Care Provider Unavail [facility] oRsetta Diamond MD Primary Care Provider + Encounter Details Date Type Department Care Team Description 03/16/2015 Hospital Medical Records [address] [place] [address] Social History Tobacco Use Types Packs/Day Years [...] on filedocumented in this encounter Care Teams Manufacturing Group Leader Relationship Specialty Start Date End Date Nikki Alcantar MD [address] [place] [address] PCP - General 06/26/05 03/04/17 Michelle Norris MD [address] [place] [address] PCP - General Internal Medicine 03/05/17 03/16/21 [facility], Pcp [address] [place] [address]26 PCP - General Internal Medicine 03/17/21 05/04/21 Michelle Norris MD [address] [place] [address]78 PCP - General Internal Medicine 05/05/21 09/13/22 Rosetta Diamond MD [address] [place] [address] KARTIK CHEN [address]24 PCP - General Internal Medicine 09/14/22 documented as of this encounter
--- OUTSIDE RECORDS SUMMARY | 2025-01-28 17:37 | XMS_ITS | Encounter Summary ---
Author Organization [facility] Address [address] [place] [address] Care Team Providers Care Electronics Technician Name Role Phone Michelle Norris MD Primary Care Provider Unavail able [facility], Pcp Primary Care Provider Michelle Abdi MD Primary Care Provider Unavail able Rosetta Diamond MD Primary Care Provider + Reason for Visit * Reason Onset Date Comments hospital follow up 09/05/2017 Encounter Details Date Type Department Care Team Description 09/05/2017 Telephone Adult [address] [address] Michelle Norris MD hospital follow up Social [...] 09/05/2017 10:11 AM EST Patient admitted at [facility] today. documented in this encounter Plan of Treatment Not on file documented as of this encounter Visit Diagnoses Not on filedocumented in this encounter Care Teams Electronics Technician Relationship Specialty Start Date End Date Michelle Norris MD PCP - General Internal Medicine 03/05/17 03/16/21 [facility], Pcp PCP - General Internal Medicine 03/17/21 05/04/21 Michelle Norris MD PCP - General Internal Medicine 05/05/21 09/13/22 Rosetta Diamond MD [address] [place] [address] PCP - General Internal Medicine 09/14/22 documented as of this encounter
--- OUTSIDE RECORDS SUMMARY | 2025-01-28 17:37 | XMS_ITS | Encounter Summary ---
Author Organization [facility] Address [address] [place] [address] Care Team Providers Care Silverware Assembler Name Role Phone Nikki Alcantar MD Primary Care Provider [phone] Michelle Norris MD Primary Care Provider Unavail [facility] Primary Care Provider [facility] Michelle Norris MD Primary Care Provider Unavail [facility] Rosetta Diamond MD Primary Care Provider + Encounter Details Date Type Department Care Team Description 2009 Hospital Medical Records [address] [place] [address] Jose G Santos MD Social History Tobacco [...] on filedocumented in this encounter Care Teams Silverware Assembler Relationship Specialty Start Date End Date Nikki Alcantar MD [address] [place] [address]227 PCP - General 06/26/05 03/04/17 Michelle Norris MD [address] [place] [address] 91036 PCP - General Internal Medicine 03/05/17 03/16/21 [facility], Pcp [address] [place] [address]17 PCP - General Internal Medicine 03/17/21 05/04/21 Michelle Norris MD [address] [place] [address]123 PCP - General Internal Medicine 05/05/21 09/13/22 Rosetta Diamond MD [address] [place] [address] PCP - General Internal Medicine 09/14/22 documented as of this encounter
--- OUTSIDE RECORDS SUMMARY | 2025-01-28 17:37 | XMS_ITS | Encounter Summary ---
Author Organization [facility] Address [address] [place] [address] Care Team Providers Care Early Childhood Name Role Phone Nikki Alcantar MD Primary Care Provider [phone] Michelle Norris MD Primary Care Provider Unavail [facility] Primary Care Provider [facility] Michelle Norris MD Primary Care Provider Unavail [facility] Rosetta Diamond MD Primary Care Provider + Encounter Details Date Type Department Care Team Description 05/11/2010 Hospital Medical Records [address] [place] [address] Gulshan Alanis MD Social History Tobacco Use [...] on filedocumented in this encounter Care Teams Early Childhood Relationship Specialty Start Date End Date Nikki Alcantar MD [address] [place] [address] PCP - General 06/26/05 03/04/17 Michelle oNrris MD [address] [place] [address]189 PCP - General Internal Medicine 03/05/17 03/16/21 [facility], Pcp [address] [place] [address]11 PCP - General Internal Medicine 03/17/21 05/04/21 Michelle Norris MD [address] [place] [address] 00473 PCP - General Internal Medicine 05/05/21 09/13/22 Rosetta Diamond MD [address] [place] [address] PCP - General Internal Medicine 09/14/22 documented as of this encounter
--- OUTSIDE RECORDS SUMMARY | 2025-01-28 17:37 | XMS_ITS | Encounter Summary ---
Author Organization [facility] Address [address] [place] [address] Care Team Providers Care Resident Services Supervisor Name Role Phone Michelle Norris MD Primary Care Provider Unavail able [facility], Pcp [facility] Michelle Norris MD Primary Care Provider Unavail able Rosetta Diamond MD Primary Care Provider + Encounter Details Date Type Department Care Team Description 10/15/2017 Hospital Medical Records [address] [place] [address] Marlen Grande Social History Tobacco Use Types [...] on filedocumented in this encounter Care Teams Resident Services Supervisor Relationship Specialty Start Date End Date Michelle Norris MD PCP - General Internal Medicine 03/05/17 03/16/21 [facility], Pcp PCP - General Internal Medicine 03/17/21 05/04/21 Michelle Norris MD PCP - General Internal Medicine 05/05/21 09/13/22 Rosetta Diamond MD [address] [place] [address] PCP - General Internal Medicine 09/14/22 documented as of this encounter
--- OUTSIDE RECORDS SUMMARY | 2025-01-28 17:37 | XMS_ITS | Encounter Summary ---
Author Organization [facility] Address [address] [place] [address] Care Team Providers Care Construction Sales Representative Name Role Phone Nikki Alcantar MD Primary Care Provider [phone] Michelle Norris MD Primary Care Provider Unavail [facility] Primary Care Provider [facility] Michelle Norris MD Primary Care Provider [facility]ail [facility] Rosetta Diamond MD Primary Care Provider + Encounter Details Date Type Department Care Team Description 08/19/2009 Hospital Medical Records [address] [place] [phone] Sumeet Yadav Social History Tobacco Use Types [...] filedocumented in this encounter Care Teams Construction Sales Representative Relationship Specialty Start Date End Date Nikki Alcantar MD [address] [place] [address] PCP - General 06/26/05 03/04/17 Michelle Norris MD [address] [place] [address] PCP - General Internal Medicine 03/05/17 03/16/21 [facility], Pcp [address] [place] [address] PCP - General Internal Medicine 03/17/21 05/04/21 Michelle Norris MD [address] [place] [address] [place] [address] PCP - General Internal Medicine 05/05/21 09/13/22 Rosetta Diamond MD [address] [place], [place] [phone] PCP - General Internal Medicine 09/14/22 documented as of this encounter
--- OUTSIDE RECORDS SUMMARY | 2025-01-28 17:37 | XMS_ITS | Encounter Summary ---
Author Organization [facility] Address [address] [place] [address] Care Team Providers Care Engineer First Assistant Name Role Phone Nikki Alcantar MD Primary Care Provider [phone] Michelle Norris MD Primary Care Provider Unavail [facility] Primary Care Provider [facility] Michelle Norris MD Primary Care Provider Unavail [facility] Rosetta Diamond MD Primary Care Provider + Encounter Details Date Type Department Care Team Description 02/16/2012 Hospital Medical Records [address] [place] [phone] Subhash Mcdaniel Social History Tobacco Use Types [...] on filedocumented in this encounter Care Teams Engineer First Assistant Relationship Specialty Start Date End Date Nikki Alcantar MD [address] [place] [address] PCP - General 06/26/05 03/04/17 Michelle Norris MD [address] [place] [address] 9[address] PCP - General Internal Medicine 03/05/17 03/16/21 [facility], Pcp [address] [place] [address]21 PCP - General Internal Medicine 03/17/21 05/04/21 Michelle Norris MD [address] [place] [address] 48796 PCP - General Internal Medicine 05/05/21 09/13/22 Rosetta Diamond MD [address] [place] [address] PCP - General Internal Medicine 09/14/22 documented as of this encounter
--- OUTSIDE RECORDS SUMMARY | 2025-01-28 17:37 | XMS_ITS | Encounter Summary ---
Author Organization [facility] Address [address] [place] [address] Care Team Providers Care Immigration Specialist Name Role Phone Nikki Alcantar MD Primary Care Provider Michelle Norris MD Primary Care Provider Unavail [facility] Primary Care Provider [facility] Michelle Norris MD Primary Care Provider Unavail [facility] Rosetta Diamond MD Primary Care Provider + Encounter Details Date Type Department Care Team Description 11/23/2011 Hospital Medical Records [address] [place] [phone] Jose Echols MD Social History Tobacco Use [...] on filedocumented in this encounter Care Teams Immigration Specialist Relationship Specialty Start Date End Date Nikki Alcantar MD [address] [place] [address]41 PCP - General 06/26/05 03/04/17 Michelle Norris MD [address] [place] [address] 35660 PCP - General Internal Medicine 03/05/17 03/16/21 [facility], Pcp [address] [place] [address] 20286 PCP - General Internal Medicine 03/17/21 05/04/21 Michelle Norris MD [address] [place] [address] 97563 PCP - General Internal Medicine 05/05/21 09/13/22 Rosetta Diamond MD [address] [place] [address] 01020 PCP - General Internal Medicine 09/14/22 documented as of this encounter
--- OUTSIDE RECORDS SUMMARY | 2025-01-28 17:37 | XMS_ITS | Encounter Summary ---
Author Organization [facility] Address [address] [place] [address] Care Team Providers Care Radio Equipment Repairer Name Role Phone Michelle Norris MD Primary Care Provider Unavail able [facility], Pcp [facility] Michelle Lagos MD Primary Care Provider Unavail able Rosetta Diamond MD Primary Care Provider + Reason for Visit * Reason Onset Date Comments Faxed Order 10/27/2020 Encounter Details Date Type Department Care Team Description 10/27/2020 Telephone Adult [address] [address] Michelle Norris MD Faxed Order Social History [...] on filedocumented in this encounter Care Teams Radio Equipment Repairer Relationship Specialty Start Date End Date Michelle Norris MD PCP - General Internal Medicine 03/05/17 03/16/21 [facility], [facility] PCP - General Internal Medicine 03/17/21 05/04/21 Michelle Norris MD PCP - General Internal Medicine 05/05/21 09/13/22 Rosetta Diamond MD [address] [place] [address] PCP - General Internal Medicine 09/14/22 documented as of this encounter
--- OUTSIDE RECORDS SUMMARY | 2025-01-28 17:37 | XMS_ITS | Encounter Summary ---
Author Organization [facility] Address [address] [place] [address] Care Team Providers Care Heavy Duty Custodian Name Role Phone Nikki Alcantar MD Primary Care Provider [phone] Michelle Norris MD Primary Care Provider Unavail [facility] Primary Care Provider [facility] Michelle Norris MD Primary Care Provider Unavail [facility] Rosetta Diamond MD Primary Care Provider + Encounter Details Date Type Department Care Team Description 07/07/2013 Telephone Adult Medicine [address] [phone] Nikki Alcantar MD [address] [place] [address] [phone] Social History Tobacco Use Types Packs/Day Years [...] on filedocumented in this encounter Care Teams Heavy Duty Custodian Relationship Specialty Start Date End Date Nikki Alcantar MD [address] [place] [address] [phone] PCP - General 06/26/05 03/04/17 Michelle Norris MD [address] [place] [address] PCP - General Internal Medicine 03/05/17 03/16/21 [facility], Pcp [address] [place] [address] PCP - General Internal Medicine 03/17/21 05/04/21 Michelle Norris MD [address] [place] [address] PCP - General Internal Medicine 05/05/21 09/13/22 Rosetta Diamond MD [address] [place] [address] PCP - General Internal Medicine 09/14/22 documented as of this encounter
--- OUTSIDE RECORDS SUMMARY | 2025-01-28 17:37 | XMS_ITS | Encounter Summary ---
Author Organization [facility] Address [address] [place] [address] Care Team Providers Care Debit Agent Name Role Phone Nikki Alcantar MD Primary Care Provider Michelle Norris MD Primary Care Provider Unavail [facility] Primary Care Provider [facility] Michelle Norris MD Primary Care Provider Unavail [facility] Rosetta Diamond MD Primary Care Provider + Encounter Details Date Type Department Care Team Description 10/19/2011 Hospital Medical Records [address] [place] [address] Marlen Grande Social History Tobacco Use Types [...] on filedocumented in this encounter Care Teams Debit Agent Relationship Specialty Start Date End Date Nikki Alcantar MD [address] [place] [address] PCP - General 06/26/05 03/04/17 Michelle Norris MD [address] [place] [address] 50490 PCP - General Internal Medicine 03/05/17 03/16/21 [facility], Pcp [address] [place] [address] 45635 PCP - General Internal Medicine 03/17/21 05/04/21 Michelle Norris MD [address] [place] [address] 20111 PCP - General Internal Medicine 05/05/21 09/13/22 Rosetta Diamond MD [address] [place] [address] PCP - General Internal Medicine 09/14/22 documented as of this encounter
--- OUTSIDE RECORDS SUMMARY | 2025-01-28 17:37 | XMS_ITS | Encounter Summary ---
Author Organization [facility] Address [address] [place] [address] Care Team Providers Care Health Program Director Name Role Phone Michelle Norris MD Primary Care Provider Unavail able Rosetta Diamond MD Primary Care Provider + Encounter Details Date Type Department Care Team Description 06/15/2022 Business Doc Medical Records [address] [place] [phone] Abstract, Provider Social History Tobacco Use Types [...] filedocumented in this encounter Care Teams Health Program Director Relationship Specialty Start Date End Date Michelle Norris MD PCP - General Internal Medicine 05/05/21 09/13/22 Rosetta Diamond MD [address] [place] [address] [phone] PCP - General Internal Medicine 09/14/22 documented as of this encounter
--- OUTSIDE RECORDS SUMMARY | 2025-01-28 17:37 | XMS_ITS | Encounter Summary ---
Author Organization [facility] Address [address] [place] [address] Care Team Providers Care Arch Support Maker Name Role Phone Michelle Norris MD Primary Care Provider Unavail able [facility], Pcp Primary [facility] Michelle Norris MD Primary Care Provider Unavail able Rosetta Diamond MD Primary Care Provider + Encounter Details Date Type Department Care Team Description 10/16/2017 Hospital Medical Records [address] [place] [address] Marlen Grande Social History Tobacco Use Types [...] on filedocumented in this encounter Care Teams Arch Support Maker Relationship Specialty Start Date End Date Michelle Norris MD PCP - General Internal Medicine 03/05/17 03/16/21 [facility], Pcp PCP - General Internal Medicine 03/17/21 05/04/21 Michelle Norris MD PCP - General Internal Medicine 05/05/21 09/13/22 Rosetta Diamond MD [address] [place] [address] PCP - General Internal Medicine 09/14/22 documented as of this encounter
--- OUTSIDE RECORDS SUMMARY | 2025-01-28 17:37 | XMS_ITS | Encounter Summary ---
Author Organization [facility] Address [address] [place] [address] Care Team Providers Care Hosiery Mater Name Role Phone Nikki Alcantar MD Primary Care Provider [phone] Michelle Norris MD Primary Care Provider Unavail [facility] Primary Care Provider [facility] Michelle Norris MD Primary Care Provider Unavail [facility] Rosetta Diamond MD Primary Care Provider + Encounter Details Date Type Department Care Team Description 07/13/2009 Hospital Medical Records [address] [place] [address] [place], [place] Social History Tobacco Use Types [...] on filedocumented in this encounter Care Teams Hosiery Mater Relationship Specialty Start Date End Date Nikki Alcantar MD [address] [place] [address] 11727 PCP - General 06/26/05 03/04/17 Michelle Norris MD [address] [place] [address] 87623 PCP - General Internal Medicine 03/05/17 03/16/21 [facility], Pcp [address] [place] [address] 36098 PCP - General Internal Medicine 03/17/21 05/04/21 Michelle Norris MD [address] [place] [address] 23705 PCP - General Internal Medicine 05/05/21 09/13/22 Rosetta Diamond MD [address] [place] [address] PCP - General Internal Medicine 09/14/22 documented as of this encounter
--- OUTSIDE RECORDS SUMMARY | 2025-01-28 17:37 | XMS_ITS | Encounter Summary ---
Author Organization [facility] Address [address] [place] [address] Care Team Providers Care Prototype Engineer Manager Name Role Phone Nikki Alcantar MD Primary Care Provider [phone] Michelle Norris MD Primary Care Provider Unavail able [facility] Michelle Norris MD Primary Care Provider Unavail able Rosetta Diamond MD Primary Care Provider + Reason for Visit * Reason Onset Date Comments other 03/22/2015 Encounter Details Date Type Department Care Team Description 03/22/2015 Telephone Adult Medicine [address] [phone] Nikki Alcantar MD [address] [place] [address] [phone] other Social History Tobacco Use Types Packs/Day [...] Hopper by Dr Shah, call Val at [phone] with any questions, thank you! documented in this encounter Plan of Treatment Not on file documented as of this encounter Visit Diagnoses Not on filedocumented in this encounter Care Teams Prototype Engineer Manager Relationship Specialty Start Date End Date Nikki Alcantar MD [address] [place] [address] PCP - General 06/26/05 03/04/17 Michelle Norris MD [address] [place], [place] [phone] PCP - General Internal Medicine 03/05/17 03/16/21 [place] [phone] PCP - General Internal Medicine 03/17/21 05/04/21 Michelle Norris MD [address] [place] [address] PCP - General Internal Medicine 05/05/21 09/13/22 Rosetta Diamond MD [address] [place] [address] 280[address] PCP - General Internal Medicine 09/14/22 documented as of this encounter
--- OUTSIDE RECORDS SUMMARY | 2025-01-28 17:37 | XMS_ITS | Encounter Summary ---
Author Organization [facility] Address [address] [place] [address] Care Team Providers Care Antichecking Iron Worker Name Role Phone Michelle Norris MD Primary Care Provider Unavail [facility], Pcp Primary Care [facility] Michelle Norris MD Primary Care Provider Unavail able Rosetta Diamond MD Primary Care Provider + Encounter Details Date Type Department Care Team Description 09/22/2017 Hospital Medical Records [address] [place] [address] Social History Tobacco Use Types Packs/Day Years [...] on filedocumented in this encounter Care Teams Antichecking Iron Worker Relationship Specialty Start Date End Date Michelle Norris MD PCP - General Internal Medicine 03/05/17 03/16/21 [facility], Pcp PCP - General Internal Medicine 03/17/21 05/04/21 Michelle Norris MD PCP - General Internal Medicine 05/05/21 09/13/22 Rosetta Diamond MD [address] [place] [address] PCP - General Internal Medicine 09/14/22 documented as of this encounter
--- OUTSIDE RECORDS SUMMARY | 2025-01-28 17:37 | XMS_ITS | Encounter Summary ---
Author Organization [facility] Address [address] [place] [address] Care Team Providers Care Annealing Oven Operator Name Role Phone Nikki Alcantar MD Primary Care Provider [phone] Michelle Norris MD Primary Care Provider Unavail [facility] Primary Care Provider [facility] Michelle Norris MD Primary Care Provider Unavail [facility] Rosetta Diamond MD Primary Care Provider + Encounter Details Date Type Department Care Team Description 01/27/2014 Business Doc Medical Records [address] [place] [address] Abstract, Provider Social History Tobacco Use Types [...] on filedocumented in this encounter Care Teams Annealing Oven Operator Relationship Specialty Start Date End Date Nikki Alcantar MD [address] [place] [address] PCP - General 06/26/05 03/04/17 Michelle Norris MD [address] [place] [address] 46999 PCP - General Internal Medicine 03/05/17 03/16/21 [facility], Pcp [address] [place] [address] PCP - General Internal Medicine 03/17/21 05/04/21 Michelle Norris MD [address] [place], [place] [phone] PCP - General Internal Medicine 05/05/21 09/13/22 Rosetta Diamond MD [address] [place] [address] PCP - General Internal Medicine 09/14/22 documented as of this encounter
--- OUTSIDE RECORDS SUMMARY | 2025-01-28 17:37 | XMS_ITS | Encounter Summary ---
Author Organization [facility] Address [address] [place] [address] Care Team Providers Care Supervisor Denture Department Name Role Phone Katherine Norris MD Primary Care Provider Unavail able [facility] Katherine Lagos MD Primary Care Provider Unavail able Rosetta Diamond MD Primary Care Provider + Reason for Visit * Reason Onset Date Comments hospital follow up 10/16/2017 Encounter Details Date Type Department Care Team Description 10/16/2017 Telephone Adult Medicine [address] [address] Katherine Norris MD hospital follow up Social [...] 1030 with KATHERINE FINE Pt seen at [facility] for crisis notes requested * Telephone Encounter - Deanna Oglesby - 10/16/2017 11:53 AM EST Hospital follow up appointment needed Hospital patient was treated at: [facility] Was this only an ER visit [...] filedocumented in this encounter Care Teams Supervisor Denture Department Relationship Specialty Start Date End Date Katherine Norris MD PCP - General Internal Medicine 03/05/17 03/16/21 [facility] PCP - General Internal Medicine 03/17/21 05/04/21 Katherine Norris MD PCP - General Internal Medicine 05/05/21 09/13/22 Rosetta Diamond MD [address] [place] [address] PCP - General Internal Medicine 09/14/22 documented as of this encounter
--- OUTSIDE RECORDS SUMMARY | 2025-01-28 17:37 | XMS_ITS | Encounter Summary ---
Author Organization [facility] Address [address] [place] [address] Care Team Providers Care Planting Machine Crewman Name Role Phone Nikki Alcantar MD Primary Care Provider [phone] Michelle Norris MD Primary Care Provider Unavail [facility] Primary Care Provider [facility] Michelle Norris MD Primary Care Provider Unavail [facility] Rosetta Diamond MD Primary Care Provider + Encounter Details Date Type Department Care Team Description 08/08/2013 Hospital Medical Records [address] [place] [address] Reena Dominguez Social History Tobacco Use Types [...] filedocumented in this encounter Care Teams Planting Machine Crewman Relationship Specialty Start Date End Date Nikki Alcantar MD [address] [place] [address] PCP - General 06/26/05 03/04/17 Michelle Norris MD [address] [place] [address] PCP - General Internal Medicine 03/05/17 03/16/21 [facility], Pcp [address] [place] [address] PCP - General Internal Medicine 03/17/21 05/04/21 Michelle Norris MD [address] [place] [address] [place] [address] PCP - General Internal Medicine 05/05/21 09/13/22 Rosetta Diamond MD [address] [place], [place] [phone] PCP - General Internal Medicine 09/14/22 documented as of this encounter
--- OUTSIDE RECORDS SUMMARY | 2025-01-28 17:37 | XMS_ITS | Encounter Summary ---
Author Organization [facility] Address [address] [place] [address] Care Team Providers Care Cyber Systems Engineer Name Role Phone Nikki Alcantar MD Primary Care Provider [phone] Michelle Norris MD Primary Care Provider Unavail [facility] Primary Care Provider [facility] Michelle Norris MD Primary Care Provider Unavail [facility] Rosetta Diamond MD Primary Care Provider + Encounter Details Date Type Department Care Team Description 10/30/2009 Hospital Medical Records [address] [place] [phone] Jose Echols MD Social History Tobacco Use [...] on filedocumented in this encounter Care Teams Cyber Systems Engineer Relationship Specialty Start Date End Date Nikki Alcantar MD [address] [place] [address] PCP - General 06/26/05 03/04/17 Michelle Norris MD [address] [place] [address] PCP - General Internal Medicine 03/05/17 03/16/21 [facility] Pcp [address] [place] [address] PCP - General Internal Medicine 03/17/21 05/04/21 Michelle Norris MD [address] [place] [address] 55549 PCP - General Internal Medicine 05/05/21 09/13/22 Rosetta Diamond MD [address] [place] [address] PCP - General Internal Medicine 09/14/22 documented as of this encounter
--- OUTSIDE RECORDS SUMMARY | 2025-01-28 17:37 | XMS_ITS | Encounter Summary ---
Author Organization [facility] Address [address] [place] [address] Care Team Providers Care Base Engineer Name Role Phone Michelle Norris MD Primary Care Provider Unavail able [facility], Pcp Primary Care [facility] Michelle Norris MD Primary Care Provider Unavail able Rosetta Diamond MD Primary Care Provider + Encounter Details Date Type Department Care Team Description 11/18/2017 Hospital Medical Records [address] [place] [phone] Marlen Grande Social History Tobacco Use Types [...] on filedocumented in this encounter Care Teams Base Engineer Relationship Specialty Start Date End Date Michelle Norris MD PCP - General Internal Medicine 03/05/17 03/16/21 [facility], Pcp PCP - General Internal Medicine 03/17/21 05/04/21 Michelle Norris MD PCP - General Internal Medicine 05/05/21 09/13/22 Rosetta Diamond MD [address] [place] [phone] PCP - General Internal Medicine 09/14/22 documented as of this encounter
--- OUTSIDE RECORDS SUMMARY | 2025-01-28 17:37 | XMS_ITS | Encounter Summary ---
Author Organization [facility] Address [address] [place] [address] Care Team Providers Care Restaurant Host/Hostess Name Role Phone Michelle Norris MD Primary Care Provider Unavail able [facility], Pcp Primary [facility] Michelle Lagos MD Primary Care Provider Unavail able Rosetta Daimond MD Primary Care Provider + Reason for Visit * Reason Onset Date Comments hospital follow up 08/29/2017 Encounter Details Date Type Department Care Team Description 08/29/2017 Telephone Adult Medicine [address] [address] Michelle Norris MD hospital follow up Social [...] appointment needed Hospital patient was treated at: [facility] Was this only an ER visit [...] on filedocumented in this encounter Care Teams Restaurant Host/Hostess Relationship Specialty Start Date End Date Michelle Norris MD PCP - General Internal Medicine 03/05/17 03/16/21 [facility] PCP - General Internal Medicine 03/17/21 05/04/21 Michelle Norris MD PCP - General Internal Medicine 05/05/21 09/13/22 Rosetta Diamond MD [address] [place] [address] PCP - General Internal Medicine 09/14/22 documented as of this encounter
--- OUTSIDE RECORDS SUMMARY | 2025-01-28 17:37 | XMS_ITS | Encounter Summary ---
Author Organization [facility] Address [address] [place] [address] Care Team Providers Care Ship Purser Name Role Phone Michelle Norris MD Primary Care Provider Unavail able [facility], Pcp Primary Care Provider [facility] Michelle Lagos MD Primary Care Provider Unavail able Rosetta Diamond MD Primary Care Provider + Reason for Visit * Reason Onset Date Comments Faxed Order 08/22/2020 Encounter Details Date Type Department Care Team Description 08/22/2020 Telephone Adult [address] [address] Michelle Norris MD Faxed Order Social History [...] TO BE SIGN AND FAX BACK TO [phone]. documented in this encounter Plan of Treatment Not on file documented as of this encounter Visit Diagnoses Not on filedocumented in this encounter Care Teams Ship Purser Relationship Specialty Start Date End Date Michelle Norris MD PCP - General Internal Medicine 03/05/17 03/16/21 [facility], Pcp PCP - General Internal Medicine 03/17/21 05/04/21 Michelle Norris MD PCP - General Internal Medicine 05/05/21 09/13/22 Rosetta Diamond MD [address] [place] [address] PCP - General Internal Medicine 09/14/22 documented as of this encounter
--- OUTSIDE RECORDS SUMMARY | 2025-01-28 17:38 | XMS_ITS | Encounter Summary ---
Author Organization [facility] Address [address] [place] [address] Care Team Providers Care Associate Material Handler Name Role Phone Nikki Alcantar MD Primary Care Provider Michelle Norris MD Primary Care Provider Unavail [facility] Primary Care Provider [facility] Michelle Norris MD Primary Care Provider Unavail [facility] Rosetta Diamond MD Primary Care Provider + Encounter Details Date Type Department Care Team Description 12/21/2012 Hospital Medical Records [address] [place] [address] Scottish, Kathy, DO Social History Tobacco Use Types [...] filedocumented in this encounter Care Teams Associate Material Handler Relationship Specialty Start Date End Date Nikki Alcantar MD [address] [place] [address]3390 PCP - General 06/26/05 03/04/17 Michelle Norris MD [address] [place] [address] 36446 PCP - General Internal Medicine 03/05/17 03/16/21 [facility], Pcp [address] [place] [address] 63294 PCP - General Internal Medicine 03/17/21 05/04/21 Michelle Norris MD [address] [place] [address] 32774 PCP - General Internal Medicine 05/05/21 09/13/22 Rosetta Diamond MD [address] [place] [address]20 PCP - General Internal Medicine 09/14/22 documented as of this encounter
--- OUTSIDE RECORDS SUMMARY | 2025-01-28 17:38 | XMS_ITS | Encounter Summary ---
Author Organization [facility] Address [address] [place] [address] Care Team Providers Care Weekend Caregiver Name Role Phone Nikki Alcantar MD Primary Care Provider [phone] Michelle Norris MD Primary Care Provider Unavail [facility] Primary Care Provider [facility] Michelle Norris MD Primary Care Provider Unavail [facility] Rosetta Diamond MD Primary Care Provider + Encounter Details Date Type Department Care Team Description 01/22/2013 Night Triage Doc Medical Records [address] [place] [address] 19206 Abstract, Provider Social History Tobacco Use Types [...] on filedocumented in this encounter Care Teams Weekend Caregiver Relationship Specialty Start Date End Date Nikki Alcantar MD [address] [place] [address] 50395 PCP - General 06/26/05 03/04/17 Michelle Norris MD [address] [place] [address] 32278 PCP - General Internal Medicine 03/05/17 03/16/21 [facility], Pcp [address] [place] [address] PCP - General Internal Medicine 03/17/21 05/04/21 Michelle Norris MD [address] [place], [place] [phone] PCP - General Internal Medicine 05/05/21 09/13/22 Rosetta Diamond MD [address] [place] [address] PCP - General Internal Medicine 09/14/22 documented as of this encounter
--- OUTSIDE RECORDS SUMMARY | 2025-01-28 17:38 | XMS_ITS | Encounter Summary ---
Author Organization [facility] Address [address] [place] [address] Care Team Providers Care Software Test Engineer Name Role Phone Nikki Alcantar MD Primary Care Provider [phone] Michelle Norris MD Primary Care Provider Unavail able [facility] Primary Care Provider [facility] Michelle Norris MD Primary Care Provider Unavail able Rosetta Diamond MD Primary Care Provider + Reason for Visit * Reason Onset Date Comments Call From Hospital 05/11/2016 Encounter Details Date Type Department Care Team Description 05/11/2016 Telephone Adult Medicine [address] [phone] Nikki Alcantar MD [address] [place] [address] [phone] Call From Hospital Social History Tobacco Use [...] DR. Alcantar patient has been admitted to [facility] as of 05/09/16 . documented in this encounter Plan of Treatment Not on file documented as of this encounter Visit Diagnoses Not on filedocumented in this encounter Care Teams Software Test Engineer Relationship Specialty Start Date End Date Nikki Alcantar MD [address] [place] [address] PCP - General 06/26/05 03/04/17 Michelle Norris MD [address] [place] [address] 68643 PCP - General Internal Medicine 03/05/17 03/16/21 [place] [phone] PCP - General Internal Medicine 03/17/21 05/04/21 Michelle Norris MD [address] [place] [address] PCP - General Internal Medicine 05/05/21 09/13/22 Rosetta Diamond MD [address] [place], [place] [phone] PCP - General Internal Medicine 09/14/22 documented as of this encounter
--- OUTSIDE RECORDS SUMMARY | 2025-01-28 17:38 | XMS_ITS | Encounter Summary ---
Author Organization [facility] Address [address] [place] [address] Care Team Providers Care Door Trimmer Name Role Phone Nikki Alcantar MD Primary Care Provider [phone] Michelle Norris MD Primary Care Provider Unavail [facility] Primary Care Provider [facility] Michelle Norris MD Primary Care Provider Unavail [facility] Rosetta Diamond MD Primary Care Provider + Encounter Details Date Type Department Care Team Description 07/10/2011 Hospital Medical Records [address] [place] [address] Julio Gilmore Social History Tobacco Use Types [...] on filedocumented in this encounter Care Teams Door Trimmer Relationship Specialty Start Date End Date Nikki Alcantar MD [address] [place] [address] PCP - General 06/26/05 03/04/17 Michelle Norris MD [address] [place] [address] 49086 PCP - General Internal Medicine 03/05/17 03/16/21 [facility], Pcp [address] [place] [address] 44984 PCP - General Internal Medicine 03/17/21 05/04/21 Michelle Norris MD [address] [place] [address] 43106 PCP - General Internal Medicine 05/05/21 09/13/22 Rosetta Diamond MD [address] [place] [address] PCP - General Internal Medicine 09/14/22 documented as of this encounter
--- OUTSIDE RECORDS SUMMARY | 2025-01-28 17:38 | XMS_ITS | Encounter Summary ---
Author Organization [facility] Address [address] [place] [address] Care Team Providers Care Conduit Cleaner Name Role Phone Nikki Alcantar MD Primary Care Provider [phone] Michelle Norris MD Primary Care Provider Unavail [facility] Primary Care Provider [facility] Michelle Norris MD Primary Care Provider Unavail [facility] Rosetta Diamond MD Primary Care Provider + Encounter Details Date Type Department Care Team Description 05/24/2016 Hospital Medical Records [address] [place] [address] Chuck Dave MD Social History Tobacco Use [...] on filedocumented in this encounter Care Teams Conduit Cleaner Relationship Specialty Start Date End Date Nikki Alcantar MD [address] [place] [address] PCP - General 06/26/05 03/04/17 Michelle Norris MD [address] [place] [address] 54049 PCP - General Internal Medicine 03/05/17 03/16/21 [facility], Pcp [address] [place] [address] 17787 PCP - General Internal Medicine 03/17/21 05/04/21 Michelle Norris MD [address] [place] [address] 95043 PCP - General Internal Medicine 05/05/21 09/13/22 Rosetta Diamond MD [address] [place] [address] PCP - General Internal Medicine 09/14/22 documented as of this encounter
--- OUTSIDE RECORDS SUMMARY | 2025-01-28 17:38 | XMS_ITS | Encounter Summary ---
Author Organization [facility] Address [address] [place] [address] Care Team Providers Care Machine Ii Trimmer Name Role Phone Nikki Alcantar MD Primary Care Provider [phone] Michelle Norris MD Primary Care Provider Unavail [facility] Primary Care Provider [facility] Michelle Norris MD Primary Care Provider Unavail [facility] Rosetta Diamond MD Primary Care Provider + Encounter Details Date Type Department Care Team Description 04/23/2016 Hospital Medical Records [address] [place] [address] Rod Mccoy MD Social History Tobacco Use [...] filedocumented in this encounter Care Teams Machine Ii Trimmer Relationship Specialty Start Date End Date Nikki Alcantar MD [address] [place] [address] 41081 PCP - General 06/26/05 03/04/17 Michelle Norris MD [address] [place] [address] 12527 PCP - General Internal Medicine 03/05/17 03/16/21 [facility], Pcp [address] [place] [address] 47046 PCP - General Internal Medicine 03/17/21 05/04/21 Michelle Norris MD [address] [place] [address] 17184 PCP - General Internal Medicine 05/05/21 09/13/22 Rosetta Diamond MD [address] [place] [address] PCP - General Internal Medicine 09/14/22 documented as of this encounter
--- OUTSIDE RECORDS SUMMARY | 2025-01-28 17:38 | XMS_ITS | Encounter Summary ---
Author Organization [facility] Address [address] [place] [address] Care Team Providers Care Director Recreation Name Role Phone Nikki Alcantar MD Primary Care Provider [phone] Michelle Norris MD Primary Care Provider Unavail [facility] Primary Care Provider [facility] Michelle Norris MD Primary Care Provider Unavail [facility] Rosetta Diamond MD Primary Care Provider + Encounter Details Date Type Department Care Team Description 09/25/2016 Hospital Medical Records [address] [place] [address] 317[address] Abstract, Provider Social History Tobacco Use Types [...] filedocumented in this encounter Care Teams Director Recreation Relationship Specialty Start Date End Date Nikki Alcantar MD [address] [place] [address]453 PCP - General 06/26/05 03/04/17 Michelle Norris MD [address] [place] [address] PCP - General Internal Medicine 03/05/17 03/16/21 [facility], Pcp [address] [place] [address] PCP - General Internal Medicine 03/17/21 05/04/21 Michelle Norris MD [address] [place] [address] 51251 PCP - General Internal Medicine 05/05/21 09/13/22 Rosetta Diamond MD [address] [place], [place] [phone] PCP - General Internal Medicine 09/14/22 documented as of this encounter
--- OUTSIDE RECORDS SUMMARY | 2025-01-28 17:38 | XMS_ITS | Encounter Summary ---
Author Organization [facility] Address [address] [place] [address] Care Team Providers Care Glass Designer Name Role Phone Nikki Alcantar MD Primary Care Provider [phone] Michelle Norris MD Primary Care Provider Unavail [facility] Primary Care Provider [facility] Michelle Norris MD Primary Care Provider [facility]avail [facility] Rosetta Diamond MD Primary Care Provider + Encounter Details Date Type Department Care Team Description 05/09/2016 Hospital Medical Records [address] [place] [address] Marlen Grande Social History Tobacco Use Types [...] filedocumented in this encounter Care Teams Glass Designer Relationship Specialty Start Date End Date Nikki Alcantar MD [address] [place] [address]349 PCP - General 06/26/05 03/04/17 Michelle Norris MD [address] [place] [address] 20728 PCP - General Internal Medicine 03/05/17 03/16/21 [facility], Pcp [address] [place] [address] 71606 PCP - General Internal Medicine 03/17/21 05/04/21 Michelle Norris MD [address] [place] [address] 47216 PCP - General Internal Medicine 05/05/21 09/13/22 Rosetta Diamond MD [address] [place] [address]20 PCP - General Internal Medicine 09/14/22 documented as of this encounter
--- OUTSIDE RECORDS SUMMARY | 2025-01-28 17:38 | XMS_ITS | Encounter Summary ---
Author Organization [facility] Address [address] [place] [address] Care Team Providers Care News Broadcaster Name Role Phone Nikki Alcantar MD Primary Care Provider [phone] Michelle Norris MD Primary Care Provider Unavail [facility] Primary Care Provider [facility] Michelle Norris MD Primary Care Provider Unavail [facility] Rosetta Diamond MD Primary Care Provider + Encounter Details Date Type Department Care Team Description 11/11/2016 Hospital Medical Records [address] [place] [address] Andrew Rollins Social History Tobacco Use Types [...] on filedocumented in this encounter Care Teams News Broadcaster Relationship Specialty Start Date End Date Nikki Alcantar MD [address] [place] [address] 96861 PCP - General 06/26/05 03/04/17 Michelle Norris MD [address] [place] [address] 78965 PCP - General Internal Medicine 03/05/17 03/16/21 [facility], Pcp [address] [place] [address] 88877 PCP - General Internal Medicine 03/17/21 05/04/21 Michelle Norris MD [address] [place] [address] 02713 PCP - General Internal Medicine 05/05/21 09/13/22 Rosetta Diamond MD [address] [place] [address]1020 PCP - General Internal Medicine 09/14/22 documented as of this encounter
--- OUTSIDE RECORDS SUMMARY | 2025-01-28 17:38 | XMS_ITS | Encounter Summary ---
Author Organization [facility] Address [address] [place] [address] Care Team Providers Care Red Leader Name Role Phone Michelle Norris MD Primary Care Provider Unavail [facility], Pcp [facility] Michelle Norris MD Primary Care Provider Unavail able Rosetta Diamond MD Primary Care Provider + Encounter Details Date Type Department Care Team Description 10/07/2019 Old Medical Records Medical Records [address] [place] [address] 93946 Abstract, Provider Social History Tobacco Use Types [...] on filedocumented in this encounter Care Teams Red Leader Relationship Specialty Start Date End Date Michelle Norris MD PCP - General Internal Medicine 03/05/17 03/16/21 [facility], Pcp PCP - General Internal Medicine 03/17/21 05/04/21 Michelle Norris MD PCP - General Internal Medicine 05/05/21 09/13/22 Rosetta Diamond MD [address] [place] [address] 9[address]64 PCP - General Internal Medicine 09/14/22 documented as of this encounter
--- OUTSIDE RECORDS SUMMARY | 2025-01-28 17:38 | XMS_ITS | Encounter Summary ---
Author Organization [facility] Address [address] [place] [address] Care Team Providers Care Cutter Operator Brick Name Role Phone Michelle Norris MD Primary Care Provider Unavail able [facility], Pcp Primary Care Provider Unavailabl e Michelle Norris MD Primary Care Provider Unavail able Rosetta Diamond MD Primary Care Provider + Encounter Details Date Type Department Care Team Description 08/14/2019 Hospital Medical Records [address] [place] [address] 60950 Miles Shah MD Social History Tobacco Use [...] on filedocumented in this encounter Care Teams Cutter Operator Brick Relationship Specialty Start Date End Date Michelle Norris MD PCP - General Internal Medicine 03/05/17 03/16/21 [facility], Pcp PCP - General Internal Medicine 03/17/21 05/04/21 Michelle Norris MD PCP - General Internal Medicine 05/05/21 09/13/22 Rosetta Diamond MD [address] [place] [address] 19178 PCP - General Internal Medicine 09/14/22 documented as of this encounter
--- OUTSIDE RECORDS SUMMARY | 2025-01-28 17:38 | XMS_ITS | Encounter Summary ---
Author Organization [facility] Address [address] [place] [address] Care Team Providers Care Molding Manager Name Role Phone Nikki Alcantar MD Primary Care Provider [phone] Michelle Norris MD Primary Care Provider Unavail able [facility] Primary Care Provider [facility] Michelle Norris MD Primary Care Provider Unavail able Rosetta Diamond MD Primary Care Provider + Reason for Visit * Reason Onset Date Comments Call From Md Office 02/27/2017 Encounter Details Date Type Department Care Team Description 02/27/2017 Telephone Adult Medicine [address] [phone] Nikki Alcantar MD [address] [place] [address] [phone] Call From Md Office Social History Tobacco Use Types Packs/Day Years [...] encounter Miscellaneous Notes * Telephone Encounter - Shama Escalona C.M.A. - 02/27/2017 9:39 AM EDT FYI to Dr Alcantar. * Telephone Encounter - Jocelyne Gibbs - 02/27/2017 9:12 AM EDT Ros from [facility] calling. She would like Dr. Alcantar to know that Lucita is being seen there for mental health issues. She does not need a call back. documented in this encounter Plan of Treatment Not on file documented as of this encounter Visit Diagnoses Not on filedocumented in this encounter Care Teams Molding Manager Relationship Specialty Start Date End Date Nikki Alcantar MD [address] [place] [address] PCP - General 06/26/05 03/04/17 Michelle Norris MD [address] [place] [address] PCP - General Internal Medicine 03/05/17 03/16/21 [place] [address] PCP - General Internal Medicine 03/17/21 05/04/21 Michelle Norris MD [address] [place] [address] PCP - General Internal Medicine 05/05/21 09/13/22 Rosetta Diamond MD [address] [place] [address] PCP - General Internal Medicine 09/14/22 documented as of this encounter
--- OUTSIDE RECORDS SUMMARY | 2025-01-28 17:38 | XMS_ITS | Encounter Summary ---
Author Organization [facility] Address [address] [place] [address] Care Team Providers Care Lobbyist Name Role Phone Nikki Alcantar MD Primary Care Provider [phone] Michelle Norris MD Primary Care Provider Unavail able [facility] Michelle Norris MD Primary Care Provider Unavail able Rosetta Diamond MD Primary Care Provider + Reason for Visit * Reason Onset Date Comments APPOINTMENT 04/14/2011 MISSED APPOINTME NT 04/14/11 Encounter Details Date Type Department Care Team Description 04/14/2011 Telephone Adult Medicine [address] [phone] Nikki Alcantar MD [address] [place] [address] [phone] APPOINTMENT (MISSED APPOINTMENT 04/14/11) Social History Tobacco Use Types Packs/Day Years [...] Notes * Telephone Encounter - Lindsay Vieyra L.P.N. - 04/14/2011 10:54 AM EDT M/l FOR CALL BACK FROM PT PT MISSED APPT TODAY W/DR ALCANTAR- NEEDS TO RESCHEDULE documented in this encounter Plan of Treatment Not on file documented as of this encounter Visit Diagnoses Not on filedocumented in this encounter Care Teams Lobbyist Relationship Specialty Start Date End Date Nikki Alcantar MD [address] [place] [address] PCP - General 06/26/05 03/04/17 Michelle Norris MD [address] [place], [place] [phone] PCP - General Internal Medicine 03/05/17 03/16/21 [place] [phone] PCP - General Internal Medicine 03/17/21 05/04/21 Michelle Norris MD [address] [place] [address] PCP - General Internal Medicine 05/05/21 09/13/22 Rosetta Diamond MD [address] [place], [place] [phone] PCP - General Internal Medicine 09/14/22 documented as of this encounter
--- OUTSIDE RECORDS SUMMARY | 2025-01-28 17:38 | XMS_ITS | Encounter Summary ---
Author Organization [facility] Address [address] [place] [address] Care Team Providers Care Service Station Attendant Name Role Phone Michelle Norris MD Primary Care Provider Unavail able [facility] Michelle Lagos MD Primary Care Provider Unavail able Rosetta Diamond MD Primary Care Provider + Reason for Visit * Reason Onset Date Comments Call From Hospital 08/15/2019 Encounter Details Date Type Department Care Team Description 08/15/2019 Telephone Adult Medicine [address] [address] Michelle Norris MD Call From Hospital Social [...] AM EDT Information Needed Who is calling: [facility] Ph[facility] Information being requested? Calling to [...] on filedocumented in this encounter Care Teams Service Station Attendant Relationship Specialty Start Date End Date Michelle Norris MD PCP - General Internal Medicine 03/05/17 03/16/21 [facility], [facility] PCP - General Internal Medicine 03/17/21 05/04/21 Michelle Norris MD PCP - General Internal Medicine 05/05/21 09/13/22 Rosetta Diamond MD [address] [place] [address] PCP - General Internal Medicine 09/14/22 documented as of this encounter
--- OUTSIDE RECORDS SUMMARY | 2025-01-28 17:38 | XMS_ITS | Encounter Summary ---
Author Organization [facility] Address [address] [place] [address] Care Team Providers Care Balance Recesser Name Role Phone Michelle Norris MD Primary Care Provider Unavail able [facility], Pcp [facility] Michelle Norris MD Primary Care Provider Unavail able Rosetta Diamond MD Primary Care Provider + Encounter Details Date Type Department Care Team Description 08/28/2019 Old Medical Records Medical Records [address] [place] [address]65 Abstract, Provider Social History Tobacco Use Types [...] on filedocumented in this encounter Care Teams Balance Recesser Relationship Specialty Start Date End Date Michelle Norris MD PCP - General Internal Medicine 03/05/17 03/16/21 [facility], Pcp PCP - General Internal Medicine 03/17/21 05/04/21 Michelle Norris MD PCP - General Internal Medicine 05/05/21 09/13/22 Rosetta Diamond MD [address] [place] [address] PCP - General Internal Medicine 09/14/22 documented as of this encounter
--- OUTSIDE RECORDS SUMMARY | 2025-01-28 17:38 | XMS_ITS | Encounter Summary ---
Author Organization [facility] Address [address] [place] [address] Care Team Providers Care Licensed Nurse Practitioner Name Role Phone Nikki Alcantar MD Primary Care Provider [phone] Michelle Norris MD Primary Care Provider Unavail [facility] Primary Care Provider [facility] Michelle Norris MD Primary Care Provider Unavail [facility] Rosetta Diamond MD Primary Care Provider + Encounter Details Date Type Department Care Team Description 12/13/2012 Hospital Medical Records [address] [place] [address] Marlen Grande Social History Tobacco Use Types [...] on filedocumented in this encounter Care Teams Licensed Nurse Practitioner Relationship Specialty Start Date End Date Nikki Alcantar MD [address] [place] [address]58 PCP - General 06/26/05 03/04/17 Michelle Norris MD [address] [place] [address] 57040 PCP - General Internal Medicine 03/05/17 03/16/21 [facility], Pcp [address] [place] [address] 53901 PCP - General Internal Medicine 03/17/21 05/04/21 Michelle Norris MD [address] [place] [address] 02787 PCP - General Internal Medicine 05/05/21 09/13/22 Rosetta Diamond MD [address] [place] [address] 01020 PCP - General Internal Medicine 09/14/22 documented as of this encounter
--- OUTSIDE RECORDS SUMMARY | 2025-01-28 17:38 | XMS_ITS | Encounter Summary ---
Author Organization [facility] Address [address] [place] [address] Care Team Providers Care Freight Caller Name Role Phone Katherine Norris MD Primary Care Provider Unavail able [facility] Katherine Lagos MD Primary Care Provider Unavail able Rosetta Diamond MD Primary Care Provider + Reason for Visit * Reason Onset Date Comments Call From Hospital 10/14/2019 Encounter Details Date Type Department Care Team Description 10/14/2019 Telephone Adult Medicine [address] [address] Katherine Norris MD Call From Hospital Social [...] 12:53 PM EST Aurea from [facility] is calling as FYI to KATHERINE NORRIS patient has been admitted to hospital since 10/08/19. She states if any questions feel free to call her at [phone] documented in this encounter Plan of Treatment Not on file documented as of this encounter Visit Diagnoses Not on filedocumented in this encounter Care Teams Freight Caller Relationship Specialty Start Date End Date Katherine Norris MD PCP - General Internal Medicine 03/05/17 03/16/21 [facility], Pcp PCP - General Internal Medicine 03/17/21 05/04/21 Katherine Norris MD PCP - General Internal Medicine 05/05/21 09/13/22 Rosetta Diamond MD [address] [place] [address] PCP - General Internal Medicine 09/14/22 documented as of this encounter
--- OUTSIDE RECORDS SUMMARY | 2025-01-28 17:38 | XMS_ITS | Encounter Summary ---
Author Organization [facility] Address [address] [place] [address] Care Team Providers Care Certified Athletic Trainer Name Role Phone Nikki Alcantar MD Primary Care Provider [phone] Michelle Norris MD Primary Care Provider Unavail [facility] Primary Care Provider [facility] Michelle Norris MD Primary Care Provider Unavail [facility] Rosetta Diamond MD Primary Care Provider + Encounter Details Date Type Department Care Team Description 12/31/2012 Hospital Medical Records [address] [place] [address] Sourav Lucas Social History Tobacco Use Types [...] filedocumented in this encounter Care Teams Certified Athletic Trainer Relationship Specialty Start Date End Date Nikki Alcantar MD [address] [place] [address] PCP - General 06/26/05 03/04/17 Michelle Norris MD [address] [place] [address] PCP - General Internal Medicine 03/05/17 03/16/21 [facility], Pcp [address] [place] [address] PCP - General Internal Medicine 03/17/21 05/04/21 Michelle Norris MD [address] [place] [address] [place] [address] PCP - General Internal Medicine 05/05/21 09/13/22 Rosetta Diamond MD [address], [place] [phone] PCP - General Internal Medicine 09/14/22 documented as of this encounter
--- OUTSIDE RECORDS SUMMARY | 2025-01-28 17:38 | XMS_ITS | Encounter Summary ---
Author Organization [facility] Address [address] [place] [address] Care Team Providers Care Cloud Security Architect Name Role Phone Nikki Alcantar MD Primary Care Provider [phone] Michelle Norris MD Primary Care Provider Unavail able [facility], [facility] Michelle Norris MD Primary Care Provider Unavail able Rosetta Diamond MD Primary Care Provider + Reason for Visit * Reason Onset Date Comments VNA Call 09/05/2016 Encounter Details Date Type Department Care Team Description 09/05/2016 Telephone Adult Medicine [address] [phone] Nikki Alcantar MD [address] [place] [address] [phone] VNA Call Social History Tobacco Use Types [...] on filedocumented in this encounter Care Teams Cloud Security Architect Relationship Specialty Start Date End Date Nikki Alcantar MD [address] [place] [address] PCP - General 06/26/05 03/04/17 Michelle Norris MD [address] [place] [address] PCP - General Internal Medicine 03/05/17 03/16/21 [place] [address] PCP - General Internal Medicine 03/17/21 05/04/21 Michelle Norris MD [address] [place] [address] PCP - General Internal Medicine 05/05/21 09/13/22 Rosetta Diamond MD [address] [place] [address] PCP - General Internal Medicine 09/14/22 documented as of this encounter
--- OUTSIDE RECORDS SUMMARY | 2025-01-28 17:38 | XMS_ITS | Encounter Summary ---
Author Organization [facility] Address [address] [place] [address] Care Team Providers Care Ballistics Tester Name Role Phone Nikki Alcantar MD Primary Care Provider [phone] Michelle Norris MD Primary Care Provider Unavail [facility] Primary Care Provider [facility] Michelle Norris MD Primary Care Provider Unavail [facility] Rosetta Diamond MD Primary Care Provider + Encounter Details Date Type Department Care Team Description 05/21/2009 Hospital Medical Records [address] [place] [address] Zay Puri Social History Tobacco Use Types [...] on filedocumented in this encounter Care Teams Ballistics Tester Relationship Specialty Start Date End Date Nikki Alcantar MD [address] [place] [address] PCP - General 06/26/05 03/04/17 Michelle Norris MD [address] [place] [address] PCP - General Internal Medicine 03/05/17 03/16/21 [facility], Pcp [address] [place] [address] PCP - General Internal Medicine 03/17/21 05/04/21 Michelle Norris MD [address] [place] [address] [place] [address] PCP - General Internal Medicine 05/05/21 09/13/22 Rosetta Diamond MD [address] [place], [place] [phone] PCP - General Internal Medicine 09/14/22 documented as of this encounter
--- OUTSIDE RECORDS SUMMARY | 2025-01-28 17:38 | XMS_ITS | Encounter Summary ---
Author Organization [facility] Address [address] [place] [address] Care Team Providers Care Account General Manager Name Role Phone Michelle Norris MD Primary Care Provider Unavail able [facility] Pcp Primary Care Provider Unavailabl Michelle Lagos MD Primary Care Provider Unavail able Rosetta Diamond MD Primary Care Provider + Reason for Visit * Reason Onset Date Comments Appointment Cancelled 10/30/2019 Encounter Details Date Type Department Care Team Description 10/30/2019 Telephone Adult [address] [address] Michelle Norris MD Appointment Cancelled Social History [...] 10/30/2019 10:29 AM EST FYI-Call received from [facility] to cancel the 10/31 hospital f/u appointment. Patient is currently at [facility], admitted on 10/24/19. documented in this encounter Plan of Treatment Not on file documented as of this encounter Visit Diagnoses Not on filedocumented in this encounter Care Teams Account General Manager Relationship Specialty Start Date End Date Michelle Norris MD PCP - General Internal Medicine 03/05/17 03/16/21 [facility], Pcp PCP - General Internal Medicine 03/17/21 05/04/21 Michelle Norris MD PCP - General Internal Medicine 05/05/21 09/13/22 Rosetta Diamond MD [address] [place] [address] PCP - General Internal Medicine 09/14/22 documented as of this encounter
--- OUTSIDE RECORDS SUMMARY | 2025-01-28 17:38 | XMS_ITS | Encounter Summary ---
Author Organization [facility] Address [address] [place] [address] Care Team Providers Care Braiding Machine Tender Name Role Phone Nikki Alcantar MD Primary Care Provider [phone] Michelle Norris MD Primary Care Provider Unavail [facility] Primary Care Provider [facility] Michelle Norris MD Primary Care Provider Unavail [facility] Rosetta Diamond MD Primary Care Provider + Encounter Details Date Type Department Care Team Description 05/07/2009 Hospital Medical Records [address] [place] [address] Rosana Gonzalez MD Social History Tobacco Use [...] on filedocumented in this encounter Care Teams Braiding Machine Tender Relationship Specialty Start Date End Date Nikki Alcantar MD [address] [place] [address] PCP - General 06/26/05 03/04/17 Michelle Norris MD [address] [place] [address] PCP - General Internal Medicine 03/05/17 03/16/21 [facility], Pcp [address] [place] [address] PCP - General Internal Medicine 03/17/21 05/04/21 Michelle Norris MD [address] [place] [address] [place] [address] PCP - General Internal Medicine 05/05/21 09/13/22 Rosetta Diamond MD [address] [place], [place] [phone] PCP - General Internal Medicine 09/14/22 documented as of this encounter
--- OUTSIDE RECORDS SUMMARY | 2025-01-28 17:38 | XMS_ITS | Encounter Summary ---
Author Organization [facility] Address [address] [place] [address] Care Team Providers Care Tank Car Inspector Name Role Phone Nikki Alcantar MD Primary Care Provider [phone] Michelle Norris MD Primary Care Provider Unavail [facility] Primary Care Provider [facility] Michelle Norris MD Primary Care Provider Unavail [facility] Rosetta Diamond MD Primary Care Provider + Encounter Details Date Type Department Care Team Description 10/07/2010 Hospital Medical Records [address] [place] [address] Alverto Hernandez Social History Tobacco Use Types [...] on filedocumented in this encounter Care Teams Tank Car Inspector Relationship Specialty Start Date End Date Nikki Alcantar MD [address] [place] [address] PCP - General 06/26/05 03/04/17 Michelle Norris MD [address] [place] [address] PCP - General Internal Medicine 03/05/17 03/16/21 [facility], Pcp [address] [place] [address] PCP - General Internal Medicine 03/17/21 05/04/21 Michelle Norris MD [address] [place] [address] PCP - General Internal Medicine 05/05/21 09/13/22 Rosetta Diamond MD [address] [place] [address] PCP - General Internal Medicine 09/14/22 documented as of this encounter
--- OUTSIDE RECORDS SUMMARY | 2025-01-28 17:38 | XMS_ITS | Encounter Summary ---
Author Organization [facility] Address [address] [place] [address] Care Team Providers Care Sail Repair Person Name Role Phone Nikki Alcantar MD Primary Care Provider Michelle Norris MD Primary Care Provider Unavail able [facility], [facility] Michelle Norris MD Primary Care Provider Unavail able Rosetta Diamond MD Primary Care Provider + Reason for Visit * Reason Onset Date Comments Error 09/11/2016 Encounter Details Date Type Department Care Team Description 09/11/2016 Telephone Adult Medicine [address] [phone] Nikki Alcantar MD [address] [place] [address] [phone] Error Social History Tobacco Use Types Packs/Day [...] on filedocumented in this encounter Care Teams Sail Repair Person Relationship Specialty Start Date End Date Nikki Alcantar MD [address] [place] [address] PCP - General 06/26/05 03/04/17 Michelle Norris MD [address] [place] [address] PCP - General Internal Medicine 03/05/17 03/16/21 [facility] [place] [address] PCP - General Internal Medicine 03/17/21 05/04/21 Michelle Norris MD [address] [place] [address] PCP - General Internal Medicine 05/05/21 09/13/22 Rosetta Diamond MD [address] [place] [address] PCP - General Internal Medicine 09/14/22 documented as of this encounter
--- OUTSIDE RECORDS SUMMARY | 2025-01-28 17:38 | XMS_ITS | Encounter Summary ---
Author Organization [facility] Address [address] [place] [address] Care Team Providers Care Head Mechanic Name Role Phone Michelle Norris MD Primary Care Provider Unavail able [facility]cp [facility] Michelle Norris MD Primary Care Provider Unavail able Rosetta Diamond MD Primary Care Provider + Encounter Details Date Type Department Care Team Description 03/08/2017 Hospital Medical Records [address] [place] [address] Sourav Lucas Social History Tobacco Use Types [...] on filedocumented in this encounter Care Teams Head Mechanic Relationship Specialty Start Date End Date Michelle Norris MD PCP - General Internal Medicine 03/05/17 03/16/21 [facility], Pcp PCP - General Internal Medicine 03/17/21 05/04/21 Michelle Norris MD PCP - General Internal Medicine 05/05/21 09/13/22 Rosetta Diamond MD [address] [place] [address] PCP - General Internal Medicine 09/14/22 documented as of this encounter
--- OUTSIDE RECORDS SUMMARY | 2025-01-28 17:38 | XMS_ITS | Encounter Summary ---
Author Organization [facility] Address [address] [place] [address] Care Team Providers Care Automobile Repossessor Name Role Phone Nikki Alcantar MD Primary Care Provider [phone] Michelle Norris MD Primary Care Provider Unavail [facility] Primary Care Provider [facility] Michelle Norris MD Primary Care Provider [facility] Rosetta Diamond MD Primary Care Provider + Encounter Details Date Type Department Care Team Description 11/15/2010 Business Doc Medical Records [address] [place] [address] Abstract, Provider Social History Tobacco Use Types [...] on filedocumented in this encounter Care Teams Automobile Repossessor Relationship Specialty Start Date End Date Nikki Alcantar MD [address] [place] [address] PCP - General 06/26/05 03/04/17 Michelle Norris MD [address] [place] [address] PCP - General Internal Medicine 03/05/17 03/16/21 [facility], Pcp [address] [place] [address] PCP - General Internal Medicine 03/17/21 05/04/21 Michelle Norris MD [address] [place] [address] PCP - General Internal Medicine 05/05/21 09/13/22 Rosetta Diamond MD [address] [place] [address] PCP - General Internal Medicine 09/14/22 documented as of this encounter
--- OUTSIDE RECORDS SUMMARY | 2025-01-28 17:38 | XMS_ITS | Encounter Summary ---
Author Organization [facility] Address [address] [place] [address] Care Team Providers Care Copy Clerk Name Role Phone Nikki Alcantar MD Primary Care Provider [phone] Michelle Norris MD Primary Care Provider Unavail [facility] Primary Care Provider [facility] Michelle Norris MD Primary Care Provider Unavail [facility] Rosetta Diamond MD Primary Care Provider + Encounter Details Date Type Department Care Team Description 10/19/2016 Hospital Medical Records [address] [place] [address] Sourav Lucas Social History Tobacco Use Types [...] on filedocumented in this encounter Care Teams Copy Clerk Relationship Specialty Start Date End Date Nikki Alcantar MD [address] [place] [address] PCP - General 06/26/05 03/04/17 Michelle Norris MD [address] [place] [address] PCP - General Internal Medicine 03/05/17 03/16/21 [facility], Pcp [address] [place] [address] PCP - General Internal Medicine 03/17/21 05/04/21 Michelle Norris MD [address] [place] [address] [place] [address] PCP - General Internal Medicine 05/05/21 09/13/22 Rosetta Diamond MD [address] [place], [place] [phone] PCP - General Internal Medicine 09/14/22 documented as of this encounter
--- OUTSIDE RECORDS SUMMARY | 2025-01-28 17:38 | XMS_ITS | Encounter Summary ---
Author Organization [facility] Address [address] [place] [address] Care Team Providers Care Potato Chip Processing Supervisor Name Role Phone Nikki Alcantar MD Primary Care Provider [phone] Michlele Norris MD Primary Care Provider Unavail able [facility] Primary Care Provider [facility] Michelle Norris MD Primary Care Provider Unavail able Rosetta Diamond MD Primary Care Provider + Reason for Visit * Reason Onset Date Comments VNA Call 08/18/2016 Encounter Details Date Type Department Care Team Description 08/18/2016 Telephone Adult Medicine [address] [phone] Nikik Alcantar MD [address] [place] [address] [phone] VNA Call Social History Tobacco Use Types [...] in this encounter Care Teams Potato Chip Processing Supervisor Relationship Specialty Start Date End Date Nikki Alcantar MD [address] [place] [address] PCP - General 06/26/05 03/04/17 Michelle Norris MD [address] [place], [place] [phone] PCP - General Internal Medicine 03/05/17 03/16/21 [place] [address] PCP - General Internal Medicine 03/17/21 05/04/21 Michelle Norris MD [address] [place] [address] PCP - General Internal Medicine 05/05/21 09/13/22 Rosetta Diamond MD [address] [place] [address] PCP - General Internal Medicine 09/14/22 documented as of this encounter
--- OUTSIDE RECORDS SUMMARY | 2025-01-28 17:38 | XMS_ITS | Encounter Summary ---
Author Organization [facility] Address [address] [place] [address] Care Team Providers Care Cloth Examiner Name Role Phone Nikki Alcantar MD Primary Care Provider [phone] Michelle Norris MD Primary Care Provider Unavail able [facility] Primary Care Provider [facility] Michelle Norris MD Primary Care Provider Unavail able Rosetta Diamond MD Primary Care Provider + Reason for Visit * Reason Onset Date Comments Faxed Refill 02/01/2017 Encounter Details Date Type Department Care Team Description 02/01/2017 Refill Adult Medicine [address] [phone] Nikki Alcatnar MD [address] [place] [address] [phone] Faxed Refill Social History Tobacco Use Types [...] my call. * Telephone Encounter - Shama Rzao PA-C - 02/02/2017 9:09 AM EDT I [...] REQUESTED IS ON THE MED LIST ABOVE) [facility] SPINNER TENDER WILL BRING PATIENT IN FOR LABS All of the medications requested were on the CURRENT MEDS list Did you check the Pharmacy information above?: YES Patient wants: 30 -day supply Is this a mail order prescription request ? NO Patients current insurance carrier is: [place] / [place] / Product Type: MEDICARE [id number] documented in this encounter Plan of Treatment Not on file documented as of this encounter Visit Diagnoses Not on filedocumented in this encounter Care Teams Cloth Examiner Relationship Specialty Start Date End Date Nikki Alcantar MD [address] [place] [address] PCP - General 06/26/05 03/04/17 Michelle Norris MD [address] [place] [address] PCP - General Internal Medicine 03/05/17 03/16/[facility] [address] [place] [address] PCP - General Internal Medicine 03/17/21 05/04/21 Michelle Norris MD [address] [place] [address] PCP - General Internal Medicine 05/05/21 09/13/22 Rosetta Diamond MD [address] [place] [address] PCP - General Internal Medicine 09/14/22 documented as of this encounter
--- OUTSIDE RECORDS SUMMARY | 2025-01-28 17:38 | XMS_ITS | Encounter Summary ---
Author Organization [facility] Address [address] [place] [address] Care Team Providers Care Senior Engineering Manager Name Role Phone Nikki Alcantar MD Primary Care Provider [phone] Michelel Norris MD Primary Care Provider Unavail [facility] [place] [facility] Primary Care Provider [facility] Michelle Norris MD Primary Care Provider Unavail [facility] Rosetta Diamond MD Primary Care Provider + Encounter Details Date Type Department Care Team Description 09/06/2016 Home Health Certification Medical Records [address] [place] [address] Social History Tobacco Use Types Packs/Day Years [...] filedocumented in this encounter Care Teams Senior Engineering Manager Relationship Specialty Start Date End Date Nikki Alcantar MD [address] [place] [address] PCP - General 06/26/05 03/04/17 Michelle Norris MD [address] [place] [address] PCP - General Internal Medicine 03/05/17 03/16/21 [facility], Pcp [address] [place] [address] PCP - General Internal Medicine 03/17/21 05/04/21 Michelle Norris MD [address] [place] [address] PCP - General Internal Medicine 05/05/21 09/13/22 Rosetta Diamond MD [address] [place], [place] [phone] PCP - General Internal Medicine 09/14/22 documented as of this encounter
--- OUTSIDE RECORDS SUMMARY | 2025-01-28 17:38 | XMS_ITS | Encounter Summary ---
Author Organization [facility] Address [address] [place] [address] Care Team Providers Care Shafting Worker Name Role Phone Nikki Alcantar MD Primary Care Provider [phone] Michelle Norris MD Primary Care Provider Unavail [facility] Primary Care Provider [facility] Michelle Norris MD Primary Care Provider Unavail [facility] Rosetta Diamond MD Primary Care Provider + Encounter Details Date Type Department Care Team Description 03/04/2013 Night Triage Doc Medical Records [address] [place] [address] Abstract, Provider Social History Tobacco Use Types [...] on filedocumented in this encounter Care Teams Shafting Worker Relationship Specialty Start Date End Date Nikki Alcantar MD [address] [place] [address] PCP - General 06/26/05 03/04/17 Michelle Norris MD [address] [place] [address] PCP - General Internal Medicine 03/05/17 03/16/21 [facility], Pcp [address] [place] [address] PCP - General Internal Medicine 03/17/21 05/04/21 Michelle Norris MD [address] [place] [address] [place] [address] PCP - General Internal Medicine 05/05/21 09/13/22 Rosetta Diamond MD [address] [place], [place] [phone] PCP - General Internal Medicine 09/14/22 documented as of this encounter
--- OUTSIDE RECORDS SUMMARY | 2025-01-28 17:38 | XMS_ITS | Encounter Summary ---
Author Organization [facility] Address [address] [place] [address] Care Team Providers Care Traffic Survey Technician Name Role Phone Nikki Alcantar MD Primary Care Provider [phone] Michelle Norris MD Primary Care Provider Unavail able [facility] Michelle Norris MD Primary Care Provider Unavail able Rosetta Diamond MD Primary Care Provider + Reason for Visit * Reason Onset Date Comments VNA Call 08/29/2016 Encounter Details Date Type Department Care Team Description 08/29/2016 Telephone [facility] [address] [place] [address] [phone] Nikki Alcantar MD [address] [place] [address] [phone] VNA Call Social History Tobacco Use Types [...] 2x a week. Verbal order given for [place] [employer] dressing by Dr. Vigil (in absence [...] tomorrow number to be reached at is [phone] * Telephone Encounter - Darcy Nicole - [...] filedocumented in this encounter Care Teams Traffic Survey Technician Relationship Specialty Start Date End Date Nikki Alcantar MD [address] [place] [address] PCP - General 06/26/05 03/04/17 Michelle Norris MD [address] [place] [address] PCP - General Internal Medicine 03/05/17 03/16/21 [facility], Pcp [address] [place] [address] PCP - General Internal Medicine 03/17/21 05/04/21 Michelle Norris MD [address] [place], [place] [phone] PCP - General Internal Medicine 05/05/21 09/13/22 Rosetta Diamond MD [address] [place] [address] PCP - General Internal Medicine 09/14/22 documented as of this encounter
--- OUTSIDE RECORDS SUMMARY | 2025-01-28 17:38 | XMS_ITS | Encounter Summary ---
Author Organization [facility] Address [address] [place] [address] Care Team Providers Care Tack Picker Name Role Phone Nikki Alcantar MD Primary Care Provider [phone] Michelle Norris MD Primary Care Provider Unavail able [facility] [place] [facility] Michelle Norris MD Primary Care Provider Unavail able Rosetta Diamond MD Primary Care Provider + Reason for Visit * Reason Onset Date Comments Faxed Order 09/05/2016 Encounter Details Date Type Department Care Team Description 09/05/2016 Telephone Adult Medicine [address] [phone] Nikki Alcantar MD [address] [place] [address] [phone] Faxed Order Social History Tobacco Use Types [...] Juan returning call for wound care orders [phone] * Telephone Encounter - Isaac Harvey - 09/05/2016 2:25 PM EST Medical resources faxed supplimental orders for signature documented in this encounter Plan of Treatment Not on file documented as of this encounter Visit Diagnoses Not on filedocumented in this encounter Care Teams Tack Picker Relationship Specialty Start Date End Date Nikki Alcantar MD [address] [place] [address] PCP - General 06/26/05 03/04/17 Michelle Norris MD [address] [place] [address] PCP - General Internal Medicine 03/05/17 03/16/21 [place] [address] PCP - General Internal Medicine 03/17/21 05/04/21 Michelle Norris MD [address] [place], [place] [phone] PCP - General Internal Medicine 05/05/21 09/13/22 Rosetta Diamond MD [address] [place] [address] PCP - General Internal Medicine 09/14/22 documented as of this encounter
--- OUTSIDE RECORDS SUMMARY | 2025-01-28 17:38 | XMS_ITS | Encounter Summary ---
Author Organization [facility] Address [address] [place] [address] Care Team Providers Care Fiscal Accountant Name Role Phone Nikki Alcantar MD Primary Care Provider [phone] Michelle Norris MD Primary Care Provider Unavail [facility] Primary Care Provider [facility] Michelle Norris MD Primary Care Provider Unavail [facility] Rosetta Diamond MD Primary Care Provider + Encounter Details Date Type Department Care Team Description 08/27/2016 C S S Representative Report Medical Records [address] [place] [address] 18243 Francis Booth I., PH.D Social History Tobacco [...] on filedocumented in this encounter Care Teams Fiscal Accountant Relationship Specialty Start Date End Date Nikki Alcantar MD [address] [place] [address] 26[address] PCP - General 06/26/05 03/04/17 Michelle Norris MD [address] [place] [address] PCP - General Internal Medicine 03/05/17 03/16/21 [facility], Pcp [address] [place] [address] PCP - General Internal Medicine 03/17/21 05/04/21 Michelle Norris MD [address] [place] [address] PCP - General Internal Medicine 05/05/21 09/13/22 Rosetta Diamond MD [address] [place] [address] PCP - General Internal Medicine 09/14/22 documented as of this encounter
--- OUTSIDE RECORDS SUMMARY | 2025-01-28 17:38 | XMS_ITS | Encounter Summary ---
Author Organization [facility] Address [address] [place] [address] Care Team Providers Care Car Sealer Name Role Phone Nikki Alcantar MD Primary Care Provider [phone] Michelle Norris MD Primary Care Provider Unavail able [facility] Primary Care Provider [facility] Michelle Norris MD Primary Care Provider Unavail able Rosetta Diamond MD Primary Care Provider + Reason for Visit * Reason Onset Date Comments VNA Call 11/24/2016 Encounter Details Date Type Department Care Team Description 11/24/2016 Telephone Adult Medicine [address] [phone] Nikki Alcantar MD [address] [place] [address] [phone] V[facility] Call Social History Tobacco Use Types [...] name of caller: Ros The caller is Cross Roller Is the caller at the patients home?: [...] on filedocumented in this encounter Care Teams Car Sealer Relationship Specialty Start Date End Date Nikki Alcantar MD [address] [place] [address] PCP - General 06/26/05 03/04/17 Michelle Norris MD [address] [place] [address] PCP - General Internal Medicine 03/05/17 03/16/21 [facility] [place] [address] PCP - General Internal Medicine 03/17/21 05/04/21 Michelle Norris MD [address] [place] [address] 69[address] PCP - General Internal Medicine 05/05/21 09/13/22 Rosetta Diamond MD [address] [place] [address] PCP - General Internal Medicine 09/14/22 documented as of this encounter
== END 2025-01-28 14:53 | disposition home or self-care (01) ==
LOC: HO.LABR 14:52
PROVIDERS: PCP Nurse Practitioner Family
DX: Z79.899 Other long term (current) drug therapy (principal)
CPT/HCPCS: 36415; 85025

== ENCOUNTER 2025-02-03 18:01 | Emergency (ER) | payer MEDICARE, MEDICAID, SELFPAY ==
[2025-02-03 18:13] VITALS: BP 120/78; PULSE 117; RESP 20; TEMP 36.8; O2SAT 95; BMI 44.1
[2025-02-03 18:43] LABS: MANUAL DIFF FLAG NO
[2025-02-03 18:48] LABS: Basophils Percent Auto 0.4 % (0-2); Eosinophils Absolute Auto 0.4 X10*3/uL (0.0-0.4); Eosinophils Percent Auto 3.5 % (0-4); Hematocrit 38.1 % (37.0-47.0); Hemoglobin 12.7 g/dl (12.0-16.0); Imm Gran Abs Auto 0.07 X10*3/uL (0.00-0.03); Imm Gran Pct Auto 0.7 % (0.0-0.4); Lymphocytes Absolute Auto 1.5 X10*3/uL (1.2-4.9); Lymphocytes Percent Auto 14.7 % (20-40); Mean Corpuscular HGB Conc 33.3 g/dl (31.0-35.0); Mean Corpuscular Volume 92.9 fL (80.0-98.0); Mean Platelet Volume 9.2 fL (9.4-12.3); Monocytes Absolute Auto 0.8 X10*3/uL (0.1-1.2); Monocytes Percent Auto 7.7 % (2-11); Neutrophils Absolute Auto 7.6 x10*3/uL (2.0-8.3); Platelet Count 314 X10*3/uL (160-400); Red Cell Distribution Width 12.6 % (11.0-16.0); White Blood Count 10.3 X10*3/uL (4.8-10.8)
--- OUTSIDE RECORDS SUMMARY | 2025-02-03 19:09 | XMS_ITS | Encounter Summary ---
Author Organization [facility] Address [address] [place] [address] Care Team Providers Care Sole Conforming Machine Operator Name Role Phone Nikki Alcantar MD Primary Care Provider [phone] Michelle Norris MD Primary Care Provider Unavail [facility] Primary Care Provider [facility] Michelle Norris MD Primary Care Provider Unavail [facility] Rosetta Diamond MD Primary Care Provider + Encounter Details Date Type Department Care Team Description 12/22/2015 Hospital Medical Records [address] [place] [address] Lucita Eileenelizabeth Social History Tobacco Use Types [...] on filedocumented in this encounter Care Teams Sole Conforming Machine Operator Relationship Specialty Start Date End Date Nikki Alcantar MD [address] [place] [address] PCP - General 06/26/05 03/04/17 Michelle Norris MD [address] [place] [address] PCP - General Internal Medicine 03/05/17 03/16/21 Counts Include [facility], Pcp [address] [place] [address] PCP - General Internal Medicine 03/17/21 05/04/21 Michelle Norris MD [address] [place] [address] [place] [address] PCP - General Internal Medicine 05/05/21 09/13/22 Rosetta Diamond MD [address] [place], [place] [phone] PCP - General Internal Medicine 09/14/22 documented as of this encounter
--- OUTSIDE RECORDS SUMMARY | 2025-02-03 19:09 | XMS_ITS | Encounter Summary ---
Author Organization [facility] Address [address] [place] [address] Care Team Providers Care Director Public Policy Name Role Phone Michelle Norris MD Primary Care Provider Unavail able [facility] Primary Care Provider Unavailabl e Michelle Norris MD Primary Care Provider Unavail able Rosetta Diamond MD Primary Care Provider + Encounter Details Date Type Department Care Team Description 04/21/2019 Hospital Medical Records [address] [place] [address] Radha Sifuentes Social History Tobacco Use Types [...] filedocumented in this encounter Care Teams Director Public Policy Relationship Specialty Start Date End Date Michelle Norris MD PCP - General Internal Medicine 03/05/17 03/16/21 [facility], Pcp PCP - General Internal Medicine 03/17/21 05/04/21 Michelle Norris MD PCP - General Internal Medicine 05/05/21 09/13/22 Rosetta Diamond MD [address] [place] [address] PCP - General Internal Medicine 09/14/22 documented as of this encounter
--- OUTSIDE RECORDS SUMMARY | 2025-02-03 19:09 | XMS_ITS | Encounter Summary ---
Author Organization [facility] Address [address] [place] [address] Care Team Providers Care Telecommunications Support Name Role Phone Nikki Alcantar MD Primary Care Provider [phone] Michelle Norris MD Primary Care Provider Unavail [facility] [facility] Primary Care Provider [facility] Michelle Norris MD Primary Care Provider Unavail [facility] Rosetta Diamond MD Primary Care Provider + Encounter Details Date Type Department Care Team Description 01/21/2009 Hospital Medical Records [address] [place] [phone] Nathaniel Wade MD Social History Tobacco Use [...] Date End Date Nikki Alcantar MD [address] [place] [address] PCP - General 06/26/05 03/04/17 Michelle Norris MD [address] [place] [address] PCP - General Internal Medicine 03/05/17 03/16/21 [facility], Pcp [address] [place] [address]47 PCP - General Internal Medicine 03/17/21 05/04/21 Michelle Norris MD [address] [place] [address] 16131 PCP - General Internal Medicine 05/05/21 09/13/22 Rosetta Diamond MD [address] [place] [address] PCP - General Internal Medicine 09/14/22 documented as of this encounter
--- OUTSIDE RECORDS SUMMARY | 2025-02-03 19:09 | XMS_ITS | Encounter Summary ---
Author Organization [facility] Address [address] [place] [address] Care Team Providers Care Earthmoving Plant Operator Name Role Phone Nikki Alcantar MD Primary Care Provider [phone] Michelle Norris MD Primary Care Provider Unavail [facility] Primary Care Provider [facility] Michelle Norris MD Primary Care Provider Unavail [facility] Rosetta Diamond MD Primary Care Provider + Encounter Details Date Type Department Care Team Description 10/15/2012 Night Triage Doc Medical Records [address] [place] [address] 12661 Abstract, Provider Social History Tobacco Use Types [...] on filedocumented in this encounter Care Teams Earthmoving Plant Operator Relationship Specialty Start Date End Date Nikki Alcantar MD [address] [place] [address] PCP - General 06/26/05 03/04/17 Michelle Norris MD [address] [place] [address] PCP - General Internal Medicine 03/05/17 03/16/21 [facility], Pcp [address] [place] [address] PCP - General Internal Medicine 03/17/21 05/04/21 Michelle Norris MD [address] [place], [place] [phone] PCP - General Internal Medicine 05/05/21 09/13/22 Rosetta Diamond MD [address] [place] [address] PCP - General Internal Medicine 09/14/22 documented as of this encounter
--- OUTSIDE RECORDS SUMMARY | 2025-02-03 19:09 | XMS_ITS | Encounter Summary ---
Author Organization [facility] Address [address] [place] [address] Care Team Providers Care Lithograph Press Operator Name Role Phone Michelle Norris MD Primary Care Provider Unavail able [facility], Pcp Primary Care Provider Unavailabl Michelle Lagos MD Primary Care Provider Unavail able Rosetta Diamond MD Primary Care Provider + Reason for Visit * Reason Comments E-prescribe Rx Request Encounter Details Date Type Department Care Team Description 01/02/2019 Refill OBGYN - [place] [address] [place] [address] Chel Stapleton CNM [address] [place] [address] E-prescribe Rx Request Social History Tobacco Use [...] EDT WHEN WAS THE PATIENTS LAST ANNUAL FIELD SUPERINTENDENT EXAM? 08/29/18 Does patient have an upcoming [...] / Plan: [place] / Product Type: MEDICARE [id number] documented in this encounter Plan of Treatment Not on file documented as of this encounter Visit Diagnoses Diagnosis Encounter for initial prescription of contraceptive pills General counseling for prescription of oral contraceptives documented in this encounter Care Teams Lithograph Press Operator Relationship Specialty Start Date End Date Michelle Norris MD PCP - General Internal Medicine 03/05/17 03/16/21 [facility] PCP - General Internal Medicine 03/17/21 05/04/21 Michelle Norris MD PCP - General Internal Medicine 05/05/21 09/13/22 Rosetta Diamond MD [address] [place] [address] PCP - General Internal Medicine 09/14/22 documented as of this encounter
--- OUTSIDE RECORDS SUMMARY | 2025-02-03 19:09 | XMS_ITS | Encounter Summary ---
Author Organization [facility] Address [address] [place] [address] Care Team Providers Care Corporate Representative Name Role Phone Nikki Alcantar MD Primary Care Provider [phone] Michelle Norris MD Primary Care Provider Unavail [facility] Primary Care Provider [facility] Michelle Norris MD Primary Care Provider Unavail [facility] Rosetta Diamond MD Primary Care Provider + Encounter Details Date Type Department Care Team Description 09/27/2012 Lead Machinist Report Medical Records [address] [place] [address] Julio Paredes MD Social History Tobacco Use [...] filedocumented in this encounter Care Teams Corporate Representative Relationship Specialty Start Date End Date Nikki Alcantar MD [address] [place] [address] PCP - General 06/26/05 03/04/17 Michelle Norris MD [address] [place] [address] PCP - General Internal Medicine 03/05/17 03/16/21 [facility] Pcp [address] [place] [address]415 PCP - General Internal Medicine 03/17/21 05/04/21 Michelle Norris MD [address] [place] [address] [place] [address] PCP - General Internal Medicine 05/05/21 09/13/22 Rosetta Diamond MD [address] [place], [place] [phone] PCP - General Internal Medicine 09/14/22 documented as of this encounter
--- OUTSIDE RECORDS SUMMARY | 2025-02-03 19:09 | XMS_ITS | Encounter Summary ---
Author Organization [facility] Address [address] [place] [address] Care Team Providers Care Vp Security Name Role Phone Nikki Alcantar MD Primary Care Provider [phone] Michlele Norris MD Primary Care Provider Unavail [facility] Primary Care Provider [facility] Michelle Norris MD Primary Care Provider Unavail [facility] Rosetta Diamond MD Primary Care Provider + Encounter Details Date Type Department Care Team Description 07/05/2012 Transfer Records Medical Records [address] [place] [id number] Abstract, Provider Social History Tobacco Use Types [...] filedocumented in this encounter Care Teams Vp Security Relationship Specialty Start Date End Date Nikki Alcantar MD [address] [place] [address] PCP - General 06/26/05 03/04/17 Michelle Norris MD [address] [place] [address] PCP - General Internal Medicine 03/05/17 03/16/21 [facility], Pcp [address] [place] [address] PCP - General Internal Medicine 03/17/21 05/04/21 Michelle Norris MD [address] [place] [address] 31043 PCP - General Internal Medicine 05/05/21 09/13/22 Rosetta Diamond MD [address] [place], [place] [phone] PCP - General Internal Medicine 09/14/22 documented as of this encounter
--- OUTSIDE RECORDS SUMMARY | 2025-02-03 19:09 | XMS_ITS | Encounter Summary ---
Author Organization [facility] Address [address] [place] [address] Care Team Providers Care Certified Professional Controller Name Role Phone Michelle Norris MD Primary Care Provider Unavail able [facility], Pcp [facility] Michelle Lagos MD Primary Care Provider Unavail able Rosetta Diamond MD Primary Care Provider + Reason for Visit * Reason Onset Date Comments hospital follow up 01/31/2018 Encounter Details Date Type Department Care Team Description 01/31/2018 Telephone Adult Medicine [address] [address] Michelle Norris MD hospital follow up Social [...] fax notes Hospital patient was treated at: [facility] Was this only an ER visit [...] filedocumented in this encounter Care Teams Certified Professional Controller Relationship Specialty Start Date End Date Michelle Norris MD PCP - General Internal Medicine 03/05/17 03/16/21 [facility] PCP - General Internal Medicine 03/17/21 05/04/21 Michelle Norris MD PCP - General Internal Medicine 05/05/21 09/13/22 Rosetta Diamond MD [address] [place] [address] PCP - General Internal Medicine 09/14/22 documented as of this encounter
--- OUTSIDE RECORDS SUMMARY | 2025-02-03 19:09 | XMS_ITS | Encounter Summary ---
Author Organization [facility] Address [address] [place] [address] Care Team Providers Care Water Treatment Specialist Name Role Phone Nikki Alcantar MD Primary Care Provider [phone] Michelle Norirs MD Primary Care Provider Unavail able [facility] [place] [place] Primary Care Provider [facility] Michelle Norris MD Primary Care Provider Unavail [facility] Rosetta Diamond MD Primary Care Provider + Encounter Details Date Type Department Care Team Description 01/20/2009 Hospital Medical Records [address] [place] [address] Bandar Ryan [address] [facility] [address] [place] [address] Social History Tobacco Use Types Packs/Day Years [...] filedocumented in this encounter Care Teams Water Treatment Specialist Relationship Specialty Start Date End Date Nikki Alcantar MD [address] [place] [address] PCP - General 06/26/05 03/04/17 Michelle Norris MD [address] [place] [address] PCP - General Internal Medicine 03/05/17 03/16/21 [facility], Pcp [address] [place] [address] PCP - General Internal Medicine 03/17/21 05/04/21 Michelle Norris MD [address] [place] [address] PCP - General Internal Medicine 05/05/21 09/13/22 Rosetta Diamond MD [address] [place] [address] PCP - General Internal Medicine 09/14/22 documented as of this encounter
--- OUTSIDE RECORDS SUMMARY | 2025-02-03 19:09 | XMS_ITS | Encounter Summary ---
Author Organization [facility] Address [address] [place] [address] Care Team Providers Care Veterinarian Name Role Phone Nikki Alcantar MD Primary Care Provider [phone] Michelle Norris MD Primary Care Provider Unavail [facility] Primary Care Provider [facility] Michelle Norris MD Primary Care Provider Unavail [facility] Rosetta Diamond MD Primary Care Provider + Encounter Details Date Type Department Care Team Description 11/20/2015 Hospital Medical Records [address] [place] [address] Sourav Lucas Social History Tobacco Use Types [...] on filedocumented in this encounter Care Teams Veterinarian Relationship Specialty Start Date End Date Nikki Alcantar MD [address] [place] [address] PCP - General 06/26/05 03/04/17 Michelle Norris MD [address] [place] [address] PCP - General Internal Medicine 03/05/17 03/16/21 [facility], Pcp [address] [place] [address] PCP - General Internal Medicine 03/17/21 05/04/21 Michelle Norris MD [address] [place] [address] [place] [address] PCP - General Internal Medicine 05/05/21 09/13/22 Rosetta Diamond MD [address] [place], [place] [phone] PCP - General Internal Medicine 09/14/22 documented as of this encounter
--- OUTSIDE RECORDS SUMMARY | 2025-02-03 19:09 | XMS_ITS | Encounter Summary ---
Author Organization [facility] Address [address] [place] [address] Care Team Providers Care Division Plant Engineer Name Role Phone Michelle Norris MD Primary Care Provider Unavail able [facility] Primary Care Provider [facility] Michelle Lagos MD Primary Care Provider Unavail able Rosetta Diamond MD Primary Care Provider + Reason for Visit * Reason Onset Date Comments Orders Call 01/25/2018 Encounter Details Date Type Department Care Team Description 01/25/2018 Telephone OBGYN - [place] [address] [place] [address] Ying Morton MD [address] [place] [address] Orders Call Social History Tobacco Use Types [...] has the patient had this problem? Pt???s SHIP BOAT OR BARGE MATE provider: Ying Morton M.D. Last menstrual period (LMP) or EDC (due date): N/A documented in this encounter Plan of Treatment Not on file documented as of this encounter Visit Diagnoses Not on filedocumented in this encounter Care Teams Division Plant Engineer Relationship Specialty Start Date End Date Michelle Norris MD PCP - General Internal Medicine 03/05/17 03/16/21 [facility] PCP - General Internal Medicine 03/17/21 05/04/21 Michelle Norris MD PCP - General Internal Medicine 05/05/21 09/13/22 Rosetta Diamond MD [address] [place] [address] PCP - General Internal Medicine 09/14/22 documented as of this encounter
--- OUTSIDE RECORDS SUMMARY | 2025-02-03 19:09 | XMS_ITS | Encounter Summary ---
Author Organization [facility] Address [address] [place] [address] Care Team Providers Care Network Management Specialist Name Role Phone Nikki Alcantar MD Primary Care Provider [phone] Michelel Norris MD Primary Care Provider Unavail [facility] Primary Care Provider [facility] Michelle Norris MD Primary Care Provider Unavail [facility] Rosetta Diamond MD Primary Care Provider + Encounter Details Date Type Department Care Team Description 02/13/2016 Hospital Medical Records [address] [place] [address] Jose Echols MD Social History Tobacco Use [...] on filedocumented in this encounter Care Teams Network Management Specialist Relationship Specialty Start Date End Date Nikki Aclantar MD [address] [place] [address] PCP - General 06/26/05 03/04/17 Michelle Norris MD [address] [place] [address] PCP - General Internal Medicine 03/05/17 03/16/21 [facility] Pcp [address] [place] [address] 265[address] PCP - General Internal Medicine 03/17/21 05/04/21 Michelle Norris MD [address] [place] [address] PCP - General Internal Medicine 05/05/21 09/13/22 Rosetta Diamond MD [address] [place] [address] PCP - General Internal Medicine 09/14/22 documented as of this encounter
--- OUTSIDE RECORDS SUMMARY | 2025-02-03 19:09 | XMS_ITS | Encounter Summary ---
Author Organization [facility] Address [address] [place] [address] Care Team Providers Care Retail Account Representative Name Role Phone Nikki Alcantar MD Primary Care Provider [phone] Michelle Norris MD Primary Care Provider Unavail [facility] Primary Care Provider [facility] Michelle Norris MD Primary Care Provider Unavail [facility] Rosetta Diamond MD Primary Care Provider + Encounter Details Date Type Department Care Team Description 03/27/2016 Hospital Medical Records [address] [place] [phone] Rod Mccoy MD Social History Tobacco Use [...] filedocumented in this encounter Care Teams Retail Account Representative Relationship Specialty Start Date End Date Nikki Alcantar MD [address] [place] [address] PCP - General 06/26/05 03/04/17 Michelle Norris MD [address] [place] [address] PCP - General Internal Medicine 03/05/17 03/16/21 [facility], Pcp [address] [place] [address] PCP - General Internal Medicine 03/17/21 05/04/21 Michelle Norris MD [address] [place] [address] PCP - General Internal Medicine 05/05/21 09/13/22 Rosetta Diamond MD [address] [place] [address] PCP - General Internal Medicine 09/14/22 documented as of this encounter
--- OUTSIDE RECORDS SUMMARY | 2025-02-03 19:09 | XMS_ITS | Encounter Summary ---
Author Organization [facility] Address [address] [place] [address] Care Team Providers Care Communication Clerk Name Role Phone Michelle Norris MD Primary Care Provider Unavail able [facility] Michelle Lagos MD Primary Care Provider Unavail able Rosetta Diamond MD Primary Care Provider + Reason for Visit * Reason Onset Date Comments VNA Call 05/19/2019 Encounter Details Date Type Department Care Team Description 05/19/2019 Telephone Adult Medicine [address] [address] Michelle Norris MD VNA Call Social History [...] EDT Aleciaek with [facility] She is from [place] no a VNA The are an outreach program for this patient the Will send a med list and discharge summary * Telephone Encounter - Deanna Oglesby - 05/19/2019 1:19 PM EDT VNA CALL Which VNA office is calling? [facility] Full name of caller: [facility] The caller [...] on filedocumented in this encounter Care Teams Communication Clerk Relationship Specialty Start Date End Date Michelle Norris MD PCP - General Internal Medicine 03/05/17 03/16/21 [facility] PCP - General Internal Medicine 03/17/21 05/04/21 Michelle Norris MD PCP - General Internal Medicine 05/05/21 09/13/22 Rosetta Diamond MD [address] [place] [address] PCP - General Internal Medicine 09/14/22 documented as of this encounter
--- OUTSIDE RECORDS SUMMARY | 2025-02-03 19:09 | XMS_ITS | Encounter Summary ---
Author Organization [facility] Address [address] [place] [address] Care Team Providers Care Marketing Liaison Name Role Phone Nikki Alcantar MD Primary Care Provider [phone] Michelle Norris MD Primary Care Provider Unavail [facility] Primary Care Provider [facility] Michelle Norris MD Primary Care Provider Unavail [facility] Rosetta Diamond MD Primary Care Provider + Encounter Details Date Type Department Care Team Description 11/30/2015 Hospital Medical Records [address] [place] [address] Social History Tobacco Use Types Packs/Day Years [...] filedocumented in this encounter Care Teams Marketing Liaison Relationship Specialty Start Date End Date Nikki Alcantar MD [address] [place] [address] PCP - General 06/26/05 03/04/17 Michelle Norris MD [address] [place] [address] PCP - General Internal Medicine 03/05/17 03/16/21 [facility], Pcp [address] [place] [address]82 PCP - General Internal Medicine 03/17/21 05/04/21 Michelle Norris MD [address] [place] [address] 72642 PCP - General Internal Medicine 05/05/21 09/13/22 Rosetta Diamond MD [address] [place] [address] KARTIK CHEN [address] PCP - General Internal Medicine 09/14/22 documented as of this encounter
--- OUTSIDE RECORDS SUMMARY | 2025-02-03 19:09 | XMS_ITS | Encounter Summary ---
Author Organization [facility] Address [address] [place] [address] Care Team Providers Care Sewing Machine Bobbin Winder Name Role Phone Nikki Alcantar MD Primary Care Provider [phone] Michelle Norris MD Primary Care Provider Unavail [facility] Primary Care Provider [facility] Michelle Norris MD Primary Care Provider Unavail [facility] Rosetta Diamond MD Primary Care Provider + Encounter Details Date Type Department Care Team Description 12/03/2008 Hospital Medical Records [address] [place] [address] Social History Tobacco Use Types Packs/Day Years [...] on filedocumented in this encounter Care Teams Sewing Machine Bobbin Winder Relationship Specialty Start Date End Date Nikki Alcantar MD [address] [place] [address]181 PCP - General 06/26/05 03/04/17 Michelle Norris MD [address] [place] [address] 50109 PCP - General Internal Medicine 03/05/17 03/16/21 [facility] Pcp [address] [place] [address] 91795 PCP - General Internal Medicine 03/17/21 05/04/21 Michelle Norris MD [address] [place] [address] 38346 PCP - General Internal Medicine 05/05/21 09/13/22 Rosetta Diamond MD [address] [place] [address] KARTIK CHEN [address]24 PCP - General Internal Medicine 09/14/22 documented as of this encounter
--- OUTSIDE RECORDS SUMMARY | 2025-02-03 19:09 | XMS_ITS | Encounter Summary ---
Author Organization [facility] Address [address] [place] [address] Care Team Providers Care Panel Fitter Name Role Phone Nikki Alcantar MD Primary Care Provider [phone] Michelle Norris MD Primary Care Provider Unavail [facility] Primary Care Provider [facility] Michelle Norris MD Primary [facility] Rosetta Diamond MD Primary Care Provider + Encounter Details Date Type Department Care Team Description 10/05/2006 Hospital Medical Records [address] [place] [address] Subhash Mcdaniel Social History Tobacco Use Types [...] on filedocumented in this encounter Care Teams Panel Fitter Relationship Specialty Start Date End Date Nikki Alcantar MD [address] [place] [address] PCP - General 06/26/05 03/04/17 Michelle Norris MD [address] [place] [address] 54394 PCP - General Internal Medicine 03/05/17 03/16/21 [facility], Pcp [address] [place] [address] 68376 PCP - General Internal Medicine 03/17/21 05/04/21 Michelle Norris MD [address] [place] [address] 93843 PCP - General Internal Medicine 05/05/21 09/13/22 Rosetta Diamond MD [address] [place] [address] PCP - General Internal Medicine 09/14/22 documented as of this encounter
--- OUTSIDE RECORDS SUMMARY | 2025-02-03 19:09 | XMS_ITS | Encounter Summary ---
Author Organization [facility] Address [address] [place] [address] Care Team Providers Care Anode Worker Name Role Phone Nikki Alcantar MD Primary Care Provider [phone] Michelle Norris MD Primary Care Provider Unavail [facility] Primary Care Provider [facility] Michelle Norris MD Primary Care Provider Unavail [facility] Rosetta Diamond MD Primary Care Provider + Encounter Details Date Type Department Care Team Description 04/21/2008 Hospital Medical Records [address] [place] [address] Bandar Paul Social History Tobacco Use Types [...] on filedocumented in this encounter Care Teams Anode Worker Relationship Specialty Start Date End Date Nikki Alcantar MD [address] [place] [address] 15563 PCP - General 06/26/05 03/04/17 Michelle Norris MD [address] [place] [address] 54792 PCP - General Internal Medicine 03/05/17 03/16/21 [facility], Pcp [address] [place] [address] PCP - General Internal Medicine 03/17/21 05/04/21 Michelle Norris MD [address] [place], [place] [phone] PCP - General Internal Medicine 05/05/21 09/13/22 Rosetta Diamond MD [address] [place] [address] PCP - General Internal Medicine 09/14/22 documented as of this encounter
--- OUTSIDE RECORDS SUMMARY | 2025-02-03 19:09 | XMS_ITS | Encounter Summary ---
Author Organization [facility] Address [address] [place] [address] Care Team Providers Care Cattle Dealer Name Role Phone Michelle Norris MD Primary Care Provider [facility]ail [facility] Pcp [facility] Michelle Norris MD Primary Care Provider Unavail able Rosetta Diamond MD Primary Care Provider + Encounter Details Date Type Department Care Team Description 04/21/2019 Hospital Medical Records [address] [place] [address] Ron Frausto Social History Tobacco Use Types [...] on filedocumented in this encounter Care Teams Cattle Dealer Relationship Specialty Start Date End Date Michelle Norris MD PCP - General Internal Medicine 03/05/17 03/16/21 [facility], Pcp PCP - General Internal Medicine 03/17/21 05/04/21 Michelle Norris MD PCP - General Internal Medicine 05/05/21 09/13/22 Rosetta Diamond MD [address] [place] [address] PCP - General Internal Medicine 09/14/22 documented as of this encounter
--- OUTSIDE RECORDS SUMMARY | 2025-02-03 19:09 | XMS_ITS | Encounter Summary ---
Author Organization [facility] Address [address] [place] [address] Care Team Providers Care Tosser Name Role Phone Nikki Alcantar MD Primary Care Provider [phone] Michelle Norris MD Primary Care Provider Unavail [facility] Primary Care Provider [facility] Michelle Norris MD Primary Care Provider Unavail [facility] Rosetta Diamond MD Primary Care Provider + Encounter Details Date Type Department Care Team Description 02/22/2012 Hospital Medical Records [address] [place] [address] Marlen Grande Social History Tobacco Use Types [...] on filedocumented in this encounter Care Teams Tosser Relationship Specialty Start Date End Date Nikki Alcantar MD [address] [place] [address] PCP - General 06/26/05 03/04/17 Michelle Norris MD [address] [place] [address] PCP - General Internal Medicine 03/05/17 03/16/21 [facility], Pcp [address] [place] [address] 6[address]17 PCP - General Internal Medicine 03/17/21 05/04/21 Michelle Norris MD [address] [place] [address] 30981 PCP - General Internal Medicine 05/05/21 09/13/22 Rosetta Diamond MD [address] [place] [address] PCP - General Internal Medicine 09/14/22 documented as of this encounter
--- OUTSIDE RECORDS SUMMARY | 2025-02-03 19:09 | XMS_ITS | Encounter Summary ---
Author Organization [facility] Address [address] [place] [address] Care Team Providers Care Service Tech Name Role Phone Nikki Alcantar MD Primary Care Provider [phone] Michelle Norris MD Primary Care Provider Unavail [facility] Primary Care Provider [facility] Michelle Norris MD Primary Care Provider Unavail [facility] Rosetta Diamond MD Primary Care Provider + Encounter Details Date Type Department Care Team Description 11/26/2007 Hospital Medical Records [address] [place] [address] Saúl Francisco Social History Tobacco Use Types [...] filedocumented in this encounter Care Teams Service Tech Relationship Specialty Start Date End Date Nikki Alcantar MD [address] [place] [address]254 PCP - General 06/26/05 03/04/17 Michelle Norris MD [address] [place] [address] PCP - General Internal Medicine 03/05/17 03/16/21 Counts Include [facility], Pcp [address] [place] [address] PCP - General Internal Medicine 03/17/21 05/04/21 Michelle Norris MD [address] [place] [address] 69398 PCP - General Internal Medicine 05/05/21 09/13/22 Rosetta Diamond MD [address] [place], [place] [phone] PCP - General Internal Medicine 09/14/22 documented as of this encounter
--- OUTSIDE RECORDS SUMMARY | 2025-02-03 19:09 | XMS_ITS | Encounter Summary ---
Author Organization [facility] Address [address] [place] [address] Care Team Providers Care Shingle Trimmer Name Role Phone Nikki Alcantar MD Primary Care Provider [phone] Michelle Norris MD Primary Care Provider Unavail [facility] Primary Care Provider [facility] Michelle Norris MD Primary Care Provider Unavail [facility] Rosetta Diamond MD Primary Care Provider + Encounter Details Date Type Department Care Team Description 03/07/2012 Hospital Medical Records [address] [place] [address] Marlen Grande Social History Tobacco Use Types [...] on filedocumented in this encounter Care Teams Shingle Trimmer Relationship Specialty Start Date End Date Nikki Alcantar MD [address] [place] [address] PCP - General 06/26/05 03/04/17 Michelle Norris MD [address] [place] [address] 80996 PCP - General Internal Medicine 03/05/17 03/16/21 [facility] Pcp [address] [place] [address] 43711 PCP - General Internal Medicine 03/17/21 05/04/21 Michelle Norris MD [address] [place] [address]1017 PCP - General Internal Medicine 05/05/21 09/13/22 Rosetta Diamond MD [address] [place] [address]20 PCP - General Internal Medicine 09/14/22 documented as of this encounter
--- OUTSIDE RECORDS SUMMARY | 2025-02-03 19:09 | XMS_ITS | Encounter Summary ---
Author Organization [facility] Address [address] [place] [address] Care Team Providers Care Automatic Die Cutting Machine Operator Name Role Phone Nikki Alcantar MD Primary Care Provider [phone] Michelle Norris MD Primary Care Provider Unavail [facility] Primary Care Provider [facility] Michelle Norris MD Primary Care Provider Unavail [facility] Rosetta Diamond MD Primary Care Provider + Encounter Details Date Type Department Care Team Description 03/28/2016 Hospital Medical Records [address] [place] [address] Social History Tobacco Use Types Packs/Day Years [...] filedocumented in this encounter Care Teams Automatic Die Cutting Machine Operator Relationship Specialty Start Date End Date Nikki Alcantar MD [address] [place] [address] 60495 PCP - General 06/26/05 03/04/17 Michelle Norris MD [address] [place] [address] 93253 PCP - General Internal Medicine 03/05/17 03/16/21 [facility], Pcp [address] [place] [address] 57991 PCP - General Internal Medicine 03/17/21 05/04/21 Michelle Norris MD [address] [place] [address] 45784 PCP - General Internal Medicine 05/05/21 09/13/22 Rosetta Diamond MD [address] [place] [address] PCP - General Internal Medicine 09/14/22 documented as of this encounter
--- OUTSIDE RECORDS SUMMARY | 2025-02-03 19:09 | XMS_ITS | Encounter Summary ---
Author Organization [facility] Address [address] [place] [address] Care Team Providers Care Manager Property Name Role Phone Michelle Norris MD Primary Care Provider Unavail able [facility] Michelle Lagos MD Primary Care Provider Unavail able Rosetta Diamond MD Primary Care Provider + Reason for Visit * Reason Onset Date Comments refill request 06/11/2019 Encounter Details Date Type Department Care Team Description 06/11/2019 Refill Adult Medicine [address] [address] Michelle Norris MD refill request Social History [...] / Plan: [place] / Product Type: MEDICARE [id number] documented in this encounter Plan of Treatment Not on file documented as of this encounter Visit Diagnoses Not on filedocumented in this encounter Care Teams Manager Property Relationship Specialty Start Date End Date Michelle Nroris MD PCP - General Internal Medicine 03/05/17 03/16/21 [facility] PCP - General Internal Medicine 03/17/21 05/04/21 Michelle Norris MD PCP - General Internal Medicine 05/05/21 09/13/22 Rosetta Diamond MD [address] [place] [address]59 PCP - General Internal Medicine 09/14/22 documented as of this encounter
--- OUTSIDE RECORDS SUMMARY | 2025-02-03 19:09 | XMS_ITS | Encounter Summary ---
Author Organization [facility] Address [address] [place] [address] Care Team Providers Care Mechanical Design Engineer Facilities Name Role Phone Michelle Norris MD Primary Care Provider Unavail [facility]cp [facility] Michelle Norris MD Primary Care Provider Unavail able Rosetta Diamond MD Primary Care Provider + Encounter Details Date Type Department Care Team Description 03/25/2018 [facility] Medical Records [address] [place] [address] Abstract, Provider Social History Tobacco Use Types [...] filedocumented in this encounter Care Teams Mechanical Design Engineer Facilities Relationship Specialty Start Date End Date Michelle Norris MD PCP - General Internal Medicine 03/05/17 03/16/21 [facility], Pcp PCP - General Internal Medicine 03/17/21 05/04/21 Michelle Norris MD PCP - General Internal Medicine 05/05/21 09/13/22 Rosetta Diamond MD [address] [place] [address]09 PCP - General Internal Medicine 09/14/22 documented as of this encounter
--- OUTSIDE RECORDS SUMMARY | 2025-02-03 19:09 | XMS_ITS | Encounter Summary ---
Author Organization [facility] Address [address] [place] [address] Care Team Providers Care Channel Rougher Name Role Phone Nikki Alcantar MD Primary Care Provider [phone] Michelle Norris MD Primary Care Provider Unavail [facility] Primary Care Provider [facility] Michelle Norris MD Primary Care Provider Unavail [facility] Rosetta Diamond MD Primary Care Provider + Encounter Details Date Type Department Care Team Description 07/05/2012 Hospital Medical Records [address] [place] [address] Rod Mccoy MD Social History Tobacco Use [...] filedocumented in this encounter Care Teams Channel Rougher Relationship Specialty Start Date End Date Nikki Alcantar MD [address] [place] [address]128 PCP - General 06/26/05 03/04/17 Michelle Norris MD [address] [place] [address] 09311 PCP - General Internal Medicine 03/05/17 03/16/21 [facility], Pcp [address] [place] [address] 33773 PCP - General Internal Medicine 03/17/21 05/04/21 Michelle Norris MD [address] [place] [address] 82026 PCP - General Internal Medicine 05/05/21 09/13/22 Rosetta Diamond MD [address] [place] [address]1020 PCP - General Internal Medicine 09/14/22 documented as of this encounter
--- OUTSIDE RECORDS SUMMARY | 2025-02-03 19:09 | XMS_ITS | Encounter Summary ---
Author Organization [facility] Address [address] [place] [address] Care Team Providers Care Clinical Social Work Therapist Name Role Phone Michelle Norris MD Primary Care Provider [facility]ail [facility]cp [facility] Michelle Norris MD Primary Care Provider Unavail able Rosetta Diamond MD Primary Care Provider + Encounter Details Date Type Department Care Team Description 12/05/2017 Orders Only Adult Medicine [address] [address] Michelle Norris MD Social History Tobacco Use [...] filedocumented in this encounter Care Teams Clinical Social Work Therapist Relationship Specialty Start Date End Date Michelle Norris MD PCP - General Internal Medicine 03/05/17 03/16/21 [facility], Pcp PCP - General Internal Medicine 03/17/21 05/04/21 Michelle Norris MD PCP - General Internal Medicine 05/05/21 09/13/22 Rosetta Diamond MD [address] [place] [phone] PCP - General Internal Medicine 09/14/22 documented as of this encounter
--- OUTSIDE RECORDS SUMMARY | 2025-02-03 19:09 | XMS_ITS | Encounter Summary ---
Author Organization [facility] Address [address] [place] [address] Care Team Providers Care Web Knitter Name Role Phone Nikki Alcantar MD Primary Care Provider [phone] Michelle Norris MD Primary Care Provider Unavail [facility] Primary Care Provider [facility] Michelle Norris MD Primary Care Provider Unavail [facility] Rosetta Diamond MD Primary Care Provider + Encounter Details Date Type Department Care Team Description 07/31/2012 Cook Helper Juice Report Medical Records [address] [place] [address] Julio Paredes MD Social History Tobacco Use [...] on filedocumented in this encounter Care Teams Web Knitter Relationship Specialty Start Date End Date Nikki Alcantar MD [address] [place] [address] 09466 PCP - General 06/26/05 03/04/17 Michelle Norris MD [address] [place] [address] PCP - General Internal Medicine 03/05/17 03/16/21 [facility], Pcp [address] [place] [address] PCP - General Internal Medicine 03/17/21 05/04/21 Michelle Norris MD [address] [place] [address] [place] [address] PCP - General Internal Medicine 05/05/21 09/13/22 Rosetta Diamond MD [address] [place], [place] [phone] PCP - General Internal Medicine 09/14/22 documented as of this encounter
--- OUTSIDE RECORDS SUMMARY | 2025-02-03 19:09 | XMS_ITS | Encounter Summary ---
Author Organization [facility] Address [address] [place] [address] Care Team Providers Care Service Aide Name Role Phone Nikki Alcantar MD Primary Care Provider [phone] Michelle Norris MD Primary Care Provider Unavail [facility] Primary Care Provider [facility] Michelle Norris MD Primary Care Provider Unavail able Rosetta Diamond MD Primary Care Provider + Encounter Details Date Type Department Care Team Description 12/20/2007 [facility] Medical Records [address] [place] [address] Abstract, Provider Social History Tobacco Use Types [...] filedocumented in this encounter Care Teams Service Aide Relationship Specialty Start Date End Date Nikki Alcantar MD [address] [place] [address]1020 PCP - General 06/26/05 03/04/17 Michelle Norris MD [address] [place] [address] 93149 PCP - General Internal Medicine 03/05/17 03/16/21 [facility], [address] [address] PCP - General Internal Medicine 03/17/21 05/04/21 Michelle Norris MD [address] [place] [address] 83683 PCP - General Internal Medicine 05/05/21 09/13/22 Rosetta Diamond MD [address] [place] [address] PCP - General Internal Medicine 09/14/22 documented as of this encounter
--- OUTSIDE RECORDS SUMMARY | 2025-02-03 19:09 | XMS_ITS | Encounter Summary ---
Author Organization [facility] Address [address] [place] [address] Care Team Providers Care Extruding Press Adjuster Name Role Phone Nikki Alcantar MD Primary Care Provider [phone] Michelle Norris MD Primary Care Provider Unavail [facility] Primary Care Provider [facility] Michelle Norris MD Primary Care Provider Unavail [facility] Rosetta Diamond MD Primary Care Provider + Encounter Details Date Type Department Care Team Description 12/26/2015 Hospital Medical Records [address] [place] [address] Angelique Moore Social History Tobacco Use Types [...] on filedocumented in this encounter Care Teams Extruding Press Adjuster Relationship Specialty Start Date End Date Nikki Alcantar MD [address] [place] [address]39 PCP - General 06/26/05 03/04/17 Michelle Norris MD [address] [place] [address] PCP - General Internal Medicine 03/05/17 03/16/21 [facility], Pcp [address] [place] [address] PCP - General Internal Medicine 03/17/21 05/04/21 Michelle Norris MD [address] [place] [address] [place] [address] PCP - General Internal Medicine 05/05/21 09/13/22 Rosetta Diamond MD [address] [place], [place] [phone] PCP - General Internal Medicine 09/14/22 documented as of this encounter
--- OUTSIDE RECORDS SUMMARY | 2025-02-03 19:09 | XMS_ITS | Encounter Summary ---
Author Organization [facility] Address [address] [place] [address] Care Team Providers Care Fire Sprinkler Inspector Name Role Phone Michelle Norris MD Primary Care Provider Unavail able [facility], [facility] Primary Care Provider Michelle Abdi MD Primary Care Provider Unavail able Rosetta Diamond MD Primary Care Provider + Reason for Visit * Reason Onset Date Comments TEST RESULTS 06/10/2019 result notes Encounter Details Date Type Department Care Team Description 06/10/2019 Telephone Adult Medicine [address] [address] Lona Rowell PA-C TEST RESULTS (result notes) [...] 06/12/2019 1:56 PM EDT Alfonzo at patient's [facility] advised and they confirmed her appointment on 06-24-19 w/. * Telephone Encounter - Linda Torres M.A. - 06/11/2019 2:03 PM EDT Left message for patient to return call. * Telephone Encounter - Radha Robles - 06/11/2019 11:20 AM EDT Patient returning phone call [phone] * Telephone Encounter - Linda Torres M.A. [...] on filedocumented in this encounter Care Teams Fire Sprinkler Inspector Relationship Specialty Start Date End Date Michelle Norris MD PCP - General Internal Medicine 03/05/17 03/16/21 [facility] PCP - General Internal Medicine 03/17/21 05/04/21 Michelle Norris MD PCP - General Internal Medicine 05/05/21 09/13/22 Rosetta Diamond MD [address] [place] [address] PCP - General Internal Medicine 09/14/22 documented as of this encounter
--- OUTSIDE RECORDS SUMMARY | 2025-02-03 19:09 | XMS_ITS | Encounter Summary ---
Author Organization [facility] Address [address] [place] [address] Care Team Providers Care Ornamental Rail Installer Name Role Phone Michelle Norris MD Primary Care Provider Unavail able [facility], Pcp Primary Care Provider [facility] Michelle Lagos MD Primary Care Provider Unavail able Rosetta Diamond MD Primary Care Provider + Reason for Visit * Reason Onset Date Comments Faxed Order 01/25/2018 Encounter Details Date Type Department Care Team Description 01/25/2018 Telephone Adult [address] [address] Michelle Norris MD Faxed Order Social History [...] 01/25/2018 11:18 AM EDT Faxed orders from ([facility] documented in this encounter Plan of Treatment Not on file documented as of this encounter Visit Diagnoses Not on filedocumented in this encounter Care Teams Ornamental Rail Installer Relationship Specialty Start Date End Date Michelle Norris MD PCP - General Internal Medicine 03/05/17 03/16/21 [facility], Pcp PCP - General Internal Medicine 03/17/21 05/04/21 Michelle Norris MD PCP - General Internal Medicine 05/05/21 09/13/22 Rosetta Diamond MD [address] [place] [address] PCP - General Internal Medicine 09/14/22 documented as of this encounter
--- OUTSIDE RECORDS SUMMARY | 2025-02-03 19:10 | XMS_ITS | Encounter Summary ---
Author Organization [facility] Address [address] [place] [address] Care Team Providers Care Shirt Ironer Supervisor Name Role Phone Nikki Alcantar MD Primary Care Provider [phone] Michelle Norris MD Primary Care Provider Unavail able [facility] Primary Care Provider [facility] Michelle Norris MD Primary Care Provider Unavail able Rosetta Diamond MD Primary Care Provider + Reason for Visit * Reason Onset Date Comments Provider Call Back 11/26/2014 Encounter Details Date Type Department Care Team Description 11/26/2014 Telephone Adult Medicine [address] [id number] Nikki Alcantar MD [address] [place] [address] [phone] Provider Call Back Social History Tobacco Use [...] treated by behavioral health at [facility] Yesterday She is doing ok , no call backneeded documented in this encounter Plan of Treatment Not on file documented as of this encounter Visit Diagnoses Not on filedocumented in this encounter Care Teams Shirt Ironer Supervisor Relationship Specialty Start Date End Date Nikki Alcantar MD [address] [place] [address] PCP - General 06/26/05 03/04/17 Michelle Norris MD [address] [place] [address] PCP - General Internal Medicine 03/05/17 03/16/21 [place] [id number] PCP - General Internal Medicine 03/17/21 05/04/21 Michelle Norris MD [address] [place] [address] PCP - General Internal Medicine 05/05/21 09/13/22 Rosetta Diamond MD [address] [place], [place] [phone] PCP - General Internal Medicine 09/14/22 documented as of this encounter
--- OUTSIDE RECORDS SUMMARY | 2025-02-03 19:10 | XMS_ITS | Encounter Summary ---
Author Organization [facility] Address [address] [place] [address] Care Team Providers Care Asian Studies Professor Name Role Phone Michelle Norris MD Primary Care Provider Unavail able [facility] Primary Care Provider Michelle Abdi MD Primary Care Provider Unavail able Rosetta Diamond MD Primary Care Provider + Reason for Visit * Reason Onset Date Comments medication problems 10/01/2020 Encounter Details Date Type Department Care Team Description 10/01/2020 Telephone Adult Medicine [address] [address] Michelle Norris MD medication problems Social History [...] patients fpc Name of the medication Umeclidinium [place] (INCRUSE ELLIPTA) 62.5 MCG/INH AEROSOL POWDER,BREATH ACTIVATED [...] on filedocumented in this encounter Care Teams Asian Studies Professor Relationship Specialty Start Date End Date Michelle Norris MD PCP - General Internal Medicine 03/05/17 03/16/21 [facility], Pcp PCP - General Internal Medicine 03/17/21 05/04/21 Michelle Norris MD PCP - General Internal Medicine 05/05/21 09/13/22 Rosetta Diamond MD [address] [place] [address] PCP - General Internal Medicine 09/14/22 documented as of this encounter
--- OUTSIDE RECORDS SUMMARY | 2025-02-03 19:10 | XMS_ITS | Encounter Summary ---
Author Organization [facility] Address [address] [place] [address] Care Team Providers Care Hospital Medicine Director Name Role Phone Nikki Alcantar MD Primary Care Provider [phone] Michelle Norris MD Primary Care Provider Unavail [facility], [facility] Primary Care Provider [facility] Michelle Norris MD Primary Care Provider Unavail [facility] Rosetta Diamond MD Primary Care Provider + Encounter Details Date Type Department Care Team Description 02/11/2015 Hospital Medical Records [address] [place] [address] Social History Tobacco Use Types Packs/Day Years [...] on filedocumented in this encounter Care Teams Hospital Medicine Director Relationship Specialty Start Date End Date Nikki Alcantar MD [address] [place] [address] PCP - General 06/26/05 03/04/17 Michelle Norris MD [address] [place] [address] PCP - General Internal Medicine 03/05/17 03/16/21 [facility], Pcp [address] [place] [address] PCP - General Internal Medicine 03/17/21 05/04/21 Michelle Norris MD [address] [place] [address] PCP - General Internal Medicine 05/05/21 09/13/22 Rosetta Diamond MD [address] [place] [address] KARTIK CHEN [address] PCP - General Internal Medicine 09/14/22 documented as of this encounter
--- OUTSIDE RECORDS SUMMARY | 2025-02-03 19:10 | XMS_ITS | Encounter Summary ---
Author Organization [facility] Address [address] [place] [address] Care Team Providers Care Lottery Office Manager Name Role Phone Michelle Norris MD Primary Care Provider Unavail able [facility], Pcp Primary Care Provider Unavailabl e Michelle Norris MD Primary Care Provider Unavail able Rosetta Diamond MD Primary Care Provider + Encounter Details Date Type Department Care Team Description 09/09/2018 Hospital Medical Records [address] [place] [address] Jefe Robison NP Social History Tobacco Use [...] on filedocumented in this encounter Care Teams Lottery Office Manager Relationship Specialty Start Date End Date Michelle Norris MD PCP - General Internal Medicine 03/05/17 03/16/21 [facility], Pcp PCP - General Internal Medicine 03/17/21 05/04/21 Michelle Norris MD PCP - General Internal Medicine 05/05/21 09/13/22 Rosetta Diamond MD [address] [place] [address] PCP - General Internal Medicine 09/14/22 documented as of this encounter
--- OUTSIDE RECORDS SUMMARY | 2025-02-03 19:10 | XMS_ITS | Encounter Summary ---
Author Organization [facility] Address [address] [place] [address] Care Team Providers Care Territory Account Executive Name Role Phone Nikki Alcantar MD Primary Care Provider [phone] Michelle Norris MD Primary Care Provider Unavail able [facility] Primary Care Provider [facility] Michelle Norris MD Primary Care Provider Unavail [facility] Rosetta Diamond MD Primary Care Provider + Encounter Details Date Type Department Care Team Description 09/12/2011 Hospital Medical Records [address] [place] [address] Bandar Ryan [address] [facility] [address] [place] [address] Social History Tobacco Use Types Packs/Day Years [...] on filedocumented in this encounter Care Teams Territory Account Executive Relationship Specialty Start Date End Date Nikki Alcantar MD [address] [place] [address] PCP - General 06/26/05 03/04/17 Michelle Norris MD [address] [place] [address] PCP - General Internal Medicine 03/05/17 03/16/21 [facility], Pcp [address] [place] [address] PCP - General Internal Medicine 03/17/21 05/04/21 Michelle Norris MD [address] [place] [address] PCP - General Internal Medicine 05/05/21 09/13/22 Rosetta Diamond MD [address] [place] [address] PCP - General Internal Medicine 09/14/22 documented as of this encounter
--- OUTSIDE RECORDS SUMMARY | 2025-02-03 19:10 | XMS_ITS | Encounter Summary ---
Author Organization [facility] Address [address] [place] [address] Care Team Providers Care Rivet Thrower Name Role Phone Nikki Alcantar MD Primary Care Provider [phone] Michelle Norris MD Primary Care Provider Unavail [facility] Primary Care Provider [facility] Michelle Norris MD Primary Care Provider Unavail [facility] Rosetta Diamond MD Primary Care Provider + Encounter Details Date Type Department Care Team Description 02/01/2012 [facility] Doc Medical Records [address] [place] [address] Abstract, Provider Social History Tobacco Use Types [...] on filedocumented in this encounter Care Teams Rivet Thrower Relationship Specialty Start Date End Date Nikki Alcantar MD [address] [place] [address] PCP - General 06/26/05 03/04/17 Michelle Norris MD [address] [place] [address] PCP - General Internal Medicine 03/05/17 03/16/21 [facility], Pcp [address] [place] [address] PCP - General Internal Medicine 03/17/21 05/04/21 Michelle Norris MD [address] [place] [address] PCP - General Internal Medicine 05/05/21 09/13/22 Rosetta Diamond MD [address] [employer] [employer], [place] [phone] PCP - General Internal Medicine 09/14/22 documented as of this encounter
--- OUTSIDE RECORDS SUMMARY | 2025-02-03 19:10 | XMS_ITS | Encounter Summary ---
Author Organization [facility] Address [address] [place] [address] Care Team Providers Care Sewer Pipe Press Operator Name Role Phone Michelle Norris MD Primary Care Provider Unavail able [facility], Pcp [facility] Michelle Norris MD Primary Care Provider Unavail able Rosetta Diamond MD Primary Care Provider + Encounter Details Date Type Department Care Team Description 04/15/2018 Hospital Medical Records [address] [place] [address] Social History Tobacco Use Types Packs/Day Years [...] on filedocumented in this encounter Care Teams Sewer Pipe Press Operator Relationship Specialty Start Date End Date Michelle Norris MD PCP - General Internal Medicine 03/05/17 03/16/21 [facility], Pcp PCP - General Internal Medicine 03/17/21 05/04/21 Michelle Norris MD PCP - General Internal Medicine 05/05/21 09/13/22 Rosetta Diamond MD [address] [place] [address] PCP - General Internal Medicine 09/14/22 documented as of this encounter
--- OUTSIDE RECORDS SUMMARY | 2025-02-03 19:10 | XMS_ITS | Encounter Summary ---
Author Organization [facility] Address [address] [place] [address] Care Team Providers Care Sales Designer Name Role Phone Nikki Alcantar MD Primary Care Provider [phone] Michelle Norris MD Primary Care Provider Unavail [facility] Primary Care Provider [facility] Michelle Norris MD Primary Care Provider Unavail [facility] Rosetta Diamond MD Primary Care Provider + Encounter Details Date Type Department Care Team Description 07/15/2014 Hospital Medical Records [address] [place] [address] [facility] Social History Tobacco Use Types Packs/Day Years [...] filedocumented in this encounter Care Teams Sales Designer Relationship Specialty Start Date End Date Nikki Alcantar MD [address] [place] [address] PCP - General 06/26/05 03/04/17 Michelle Norris MD [address] [place] [address] PCP - General Internal Medicine 03/05/17 03/16/21 [facility], Pcp [address] [place] [address] PCP - General Internal Medicine 03/17/21 05/04/21 Michelle Norris MD [address] [place] [address] PCP - General Internal Medicine 05/05/21 09/13/22 Rosetta Diamond MD [address] [place] [address] PCP - General Internal Medicine 09/14/22 documented as of this encounter
--- OUTSIDE RECORDS SUMMARY | 2025-02-03 19:10 | XMS_ITS | Encounter Summary ---
Author Organization [facility] Address [address] [place] [address] Care Team Providers Care Senior Loss Control Specialist Name Role Phone Michelle Norris MD Primary Care Provider Unavail able [facility], Pcp Primary Care Provider Unavailabl Michelle Lagos MD Primary Care Provider Unavail able Rosetta Diamond MD Primary Care Provider + Reason for Visit * Reason Onset Date Comments Faxed Order 04/26/2018 Encounter Details Date Type Department Care Team Description 04/26/2018 Telephone Adult [address] [address] Michelle Norris MD Faxed Order Social History [...] please sign, date, and fax back to [phone]. documented in this encounter Plan of Treatment Not on file documented as of this encounter Visit Diagnoses Not on filedocumented in this encounter Care Teams Senior Loss Control Specialist Relationship Specialty Start Date End Date Michelle Norris MD PCP - General Internal Medicine 03/05/17 03/16/21 [facility], Pcp PCP - General Internal Medicine 03/17/21 05/04/21 Michelle Norris MD PCP - General Internal Medicine 05/05/21 09/13/22 Rosetta Diamond MD [address] [place] [address] PCP - General Internal Medicine 09/14/22 documented as of this encounter
--- OUTSIDE RECORDS SUMMARY | 2025-02-03 19:10 | XMS_ITS | Encounter Summary ---
Author Organization [facility] Address [address] [place] [address] Care Team Providers Care Quality Assurance/R&D Lab Technician Name Role Phone Michelle Norris MD Primary Care Provider Unavail able [facility], Pcp [facility] Michelle Norris MD Primary Care Provider Unavail able Rosetta Diamond MD Primary Care Provider + Encounter Details Date Type Department Care Team Description 05/08/2018 Hospital Medical Records [address] [place] [phone] Abstract, Provider Social History Tobacco Use Types [...] on filedocumented in this encounter Care Teams Quality Assurance/R&D Lab Technician Relationship Specialty Start Date End Date Michelle Norrsi MD PCP - General Internal Medicine 03/05/17 03/16/21 [facility], Pcp PCP - General Internal Medicine 03/17/21 05/04/21 Michelle Norris MD PCP - General Internal Medicine 05/05/21 09/13/22 Rosetta Diamond MD [address] [place] [address] PCP - General Internal Medicine 09/14/22 documented as of this encounter
--- OUTSIDE RECORDS SUMMARY | 2025-02-03 19:10 | XMS_ITS | Encounter Summary ---
Author Organization [facility] Address [address] [place] [address] Care Team Providers Care Locomotive Operator Helper Name Role Phone Nikki Alcantar MD Primary Care Provider [phone] Michelle Norris MD Primary Care Provider Unavail [facility], [facility] Primary Care Provider [facility] Michelle Norris MD Primary Care Provider Unavail [facility] Rosetta Diamond MD Primary Care Provider + Encounter Details Date Type Department Care Team Description 10/26/2014 Hospital Medical Records [address] [place] [address] Social History Tobacco Use Types Packs/Day Years [...] on filedocumented in this encounter Care Teams Locomotive Operator Helper Relationship Specialty Start Date End Date Nikki Alcantar MD [address] [place] [address] PCP - General 06/26/05 03/04/17 Michelle Norris MD [address] [place] [address] PCP - General Internal Medicine 03/05/17 03/16/21 [facility], Pcp [address] [place] [address] PCP - General Internal Medicine 03/17/21 05/04/21 Michelle Norris MD [address] [place] [address] PCP - General Internal Medicine 05/05/21 09/13/22 Rosetta Diamond MD [address] [place] [address] KARTIK CHEN [address] PCP - General Internal Medicine 09/14/22 documented as of this encounter
--- OUTSIDE RECORDS SUMMARY | 2025-02-03 19:10 | XMS_ITS | Encounter Summary ---
Author Organization [facility] Address [address] [place] [address] Care Team Providers Care Cell Tuber Machine Name Role Phone Katherine Norris MD Primary Care Provider Unavail able [facility], Pcp Primary Care Provider Katherine Abdi MD Primary Care Provider Unavail able Rosetta Diamond MD Primary Care Provider + Reason for Visit * Reason Onset Date Comments Information Needed 03/16/2020 Encounter Details Date Type Department Care Team Description 03/16/2020 Telephone Adult [address] [address] Katherine Norris MD Information Needed Social History [...] 10:37 AM EDT Patient is admitted [facility] just a FYI to KATHERINE NORRIS documented in this encounter Plan of Treatment Not on file documented as of this encounter Visit Diagnoses Not on filedocumented in this encounter Care Teams Cell Tuber Machine Relationship Specialty Start Date End Date Katherine Norris MD PCP - General Internal Medicine 03/05/17 03/16/21 [facility], Pcp PCP - General Internal Medicine 03/17/21 05/04/21 Katherine Norris MD PCP - General Internal Medicine 05/05/21 09/13/22 Rosetta Diamond MD [address] [place] [address] PCP - General Internal Medicine 09/14/22 documented as of this encounter
--- OUTSIDE RECORDS SUMMARY | 2025-02-03 19:10 | XMS_ITS | Encounter Summary ---
Author Organization [facility] Address [address] [place] [address] Care Team Providers Care Layer Out Plate Glass Name Role Phone Nikki Alcantar MD Primary Care Provider [phone] Michelle Norris MD Primary Care Provider Unavail [facility], [facility] Primary Care Provider [facility] Michelle Norris MD Primary Care Provider Unavail [facility] Rosetta Diamond MD Primary Care Provider + Encounter Details Date Type Department Care Team Description 03/12/2015 Hospital Medical Records [address] [place] [address] Social History Tobacco Use Types Packs/Day Years [...] on filedocumented in this encounter Care Teams Layer Out Plate Glass Relationship Specialty Start Date End Date Nikki Alcantar MD [address] [place] [address] PCP - General 06/26/05 03/04/17 Michelle Norris MD [address] [place] [address] PCP - General Internal Medicine 03/05/17 03/16/21 [facility], Pcp [address] [place] [address] PCP - General Internal Medicine 03/17/21 05/04/21 Michelle Norris MD [address] [place] [address] PCP - General Internal Medicine 05/05/21 09/13/22 Rosetta Diamond MD [address] [place] [address] KARTIK CHEN [address] PCP - General Internal Medicine 09/14/22 documented as of this encounter
--- OUTSIDE RECORDS SUMMARY | 2025-02-03 19:10 | XMS_ITS | Encounter Summary ---
Author Organization [facility] Address [address] [place] [address] Care Team Providers Care Ship Wirer Name Role Phone Nikki Alcantar MD Primary Care Provider [phone] Michelle Norris MD Primary Care Provider Unavail able [facility] Michelle Norris MD Primary Care Provider Unavail able Rosetta Diamond MD Primary Care Provider + Reason for Visit * Reason Onset Date Comments Call From Hospital 08/26/2014 Encounter Details Date Type Department Care Team Description 08/26/2014 Telephone Adult Medicine [address] [phone] Nikki Alcantar MD [address] [place] [address] [phone] Call From Hospital Social History Tobacco Use [...] Rebecca Terry - 08/26/2014 3:30 PM EST [facility] has admitted patient. Any questions call tammy at [phone] documented in this encounter Plan of Treatment Not on file documented as of this encounter Visit Diagnoses Not on filedocumented in this encounter Care Teams Ship Wirer Relationship Specialty Start Date End Date Nikki Alcantar MD [address] [place] [address] PCP - General 06/26/05 03/04/17 Michelle Norris MD [address] [place] [address] PCP - General Internal Medicine 03/05/17 03/16/21 [place] [address] PCP - General Internal Medicine 03/17/21 05/04/21 Michelle Norris MD [address] [place] [address] PCP - General Internal Medicine 05/05/21 09/13/22 Rosetta Diamond MD [address] [place] [address] PCP - General Internal Medicine 09/14/22 documented as of this encounter
--- OUTSIDE RECORDS SUMMARY | 2025-02-03 19:10 | XMS_ITS | Encounter Summary ---
Author Organization [facility] Address [address] [place] [address] Care Team Providers Care Panel Laminator Name Role Phone Nikki Alcantar MD Primary Care Provider [phone] Michelle Norris MD Primary Care Provider Unavail [facility] Primary Care Provider [facility] Michelle Norris MD Primary Care Provider Unavail [facility] Rosetta Diamond MD Primary Care Provider + Encounter Details Date Type Department Care Team Description 03/16/2015 Hospital Medical Records [address] [place] [address] Social History Tobacco Use Types Packs/Day Years [...] filedocumented in this encounter Care Teams Panel Laminator Relationship Specialty Start Date End Date Nikki Alcantar MD [address] [place] [address] PCP - General 06/26/05 03/04/17 Michelle Norris MD [address] [place] [address] PCP - General Internal Medicine 03/05/17 03/16/21 [facility], Pcp [address] [place] [address] PCP - General Internal Medicine 03/17/21 05/04/21 Michelle Norris MD [address] [place] [address] PCP - General Internal Medicine 05/05/21 09/13/22 Rosetta Diamond MD [address] [place] [address] KARTIK CHEN [address] PCP - General Internal Medicine 09/14/22 documented as of this encounter
--- OUTSIDE RECORDS SUMMARY | 2025-02-03 19:10 | XMS_ITS | Encounter Summary ---
Author Organization [facility] Address [address] [place] [address] Care Team Providers Care Rough Planer Tender Name Role Phone Michelle Norris MD Primary Care Provider Unavail able [facility], Pcp [facility] Michelle Lagos MD Primary Care Provider Unavail able Rosetta Diamond MD Primary Care Provider + Reason for Visit * Reason Onset Date Comments Faxed Order 10/27/2020 Encounter Details Date Type Department Care Team Description 10/27/2020 Telephone Adult [address] [address] Michelle Norris MD Faxed Order Social History [...] on filedocumented in this encounter Care Teams Rough Planer Tender Relationship Specialty Start Date End Date Michelle Norris MD PCP - General Internal Medicine 03/05/17 03/16/21 [facility], [facility] PCP - General Internal Medicine 03/17/21 05/04/21 Michelle Norris MD PCP - General Internal Medicine 05/05/21 09/13/22 Rosetta Diamond MD [address] [place] [address] PCP - General Internal Medicine 09/14/22 documented as of this encounter
--- OUTSIDE RECORDS SUMMARY | 2025-02-03 19:10 | XMS_ITS | Encounter Summary ---
Author Organization [facility] Address [address] [place] [address] Care Team Providers Care Barometers Calibrator Name Role Phone Michelle Norris MD Primary Care Provider Unavail able [facility], Pcp Primary Care Provider Unavailabl e Michelle Norris MD Primary Care Provider Unavail able Rosetta Diamond MD Primary Care Provider + Encounter Details Date Type Department Care Team Description 09/21/2020 Hospital Medical Records [address] [place] [id number] Ibrahima Ron Social History Tobacco Use Types [...] on filedocumented in this encounter Care Teams Barometers Calibrator Relationship Specialty Start Date End Date Michelle Norris MD PCP - General Internal Medicine 03/05/17 03/16/21 [facility], Pcp PCP - General Internal Medicine 03/17/21 05/04/21 Michelle Norris MD PCP - General Internal Medicine 05/05/21 09/13/22 Rosetta Diamond MD [address] [place] [address] PCP - General Internal Medicine 09/14/22 documented as of this encounter
--- OUTSIDE RECORDS SUMMARY | 2025-02-03 19:10 | XMS_ITS | Encounter Summary ---
Author Organization [facility] Address [address] [place] [address] Care Team Providers Care Flatwork Tier Name Role Phone Michelle Norris MD Primary Care Provider Unavail able Rosetta Diamond MD Primary Care Provider + Encounter Details Date Type Department Care Team Description 05/17/2021 Hospital Medical Records [address] [place] [address] Robby Bazan Social History Tobacco Use Types [...] on filedocumented in this encounter Care Teams Flatwork Tier Relationship Specialty Start Date End Date Michelle Norris MD PCP - General Internal Medicine 05/05/21 09/13/22 Rosetta Diamond MD [address] [place] [address] PCP - General Internal Medicine 09/14/22 documented as of this encounter
--- OUTSIDE RECORDS SUMMARY | 2025-02-03 19:10 | XMS_ITS | Encounter Summary ---
Author Organization [facility] Address [address] [place] [address] Care Team Providers Care Copping Machine Operator Name Role Phone Nikki Alcantar MD Primary Care Provider [phone] Michelle Norris MD Primary Care Provider Unavail [facility], [facility] Primary Care Provider [facility] Michelle Norris MD Primary Care Provider Unavail [facility] Rosetta Diamond MD Primary Care Provider + Encounter Details Date Type Department Care Team Description 07/30/2014 Hospital Medical Records [address] [place] [address] Social History Tobacco Use Types Packs/Day Years [...] on filedocumented in this encounter Care Teams Copping Machine Operator Relationship Specialty Start Date End Date Nikki Alcantar MD [address] [place] [address] PCP - General 06/26/05 03/04/17 Michelle Norris MD [address] [place] [address] PCP - General Internal Medicine 03/05/17 03/16/21 [facility], Pcp [address] [place] [address] PCP - General Internal Medicine 03/17/21 05/04/21 Michelle Norris MD [address] [place] [address] PCP - General Internal Medicine 05/05/21 09/13/22 Rosetta Diamond MD [address] [place] [address] KARTIK CHEN [address] PCP - General Internal Medicine 09/14/22 documented as of this encounter
--- OUTSIDE RECORDS SUMMARY | 2025-02-03 19:10 | XMS_ITS | Encounter Summary ---
Author Organization [facility] Address [address] [place] [address] Care Team Providers Care Law Researcher Name Role Phone Nikki Alcantar MD Primary Care Provider [phone] Michelle Norris MD Primary Care Provider Unavail able [facility] Primary Care Provider [facility] Michelle Norris MD Primary Care Provider Unavail able Rosetta Diamond MD Primary Care Provider + Reason for Visit * Reason Onset Date Comments APPOINTMENT 10/26/2011 missed appointme nt w/Dr Alcantar Encounter Details Date Type Department Care Team Description 10/26/2011 Telephone Adult Medicine [address] [phone] Nikki Alcantar MD [address] [place] [address] [phone] APPOINTMENT (missed appointment w/Dr Alcantar) Social History [...] on filedocumented in this encounter Care Teams Law Researcher Relationship Specialty Start Date End Date Nikki Alcantar MD [address] [place] [address] PCP - General 06/26/05 03/04/17 Michelle Norris MD [address] [place] [address] PCP - General Internal Medicine 03/05/17 03/16/21 [place] [address] PCP - General Internal Medicine 03/17/21 05/04/21 Michelle Norris MD [address] [place] [address] PCP - General Internal Medicine 05/05/21 09/13/22 Rosetta Diamond MD [address] [place] [address] PCP - General Internal Medicine 09/14/22 documented as of this encounter
--- OUTSIDE RECORDS SUMMARY | 2025-02-03 19:10 | XMS_ITS | Encounter Summary ---
Author Organization [facility] Address [address] [place] [address] Care Team Providers Care Industrial Arts Teacher Name Role Phone Nikki Alcantar MD Primary Care Provider Michelle Norris MD Primary Care Provider Unavail [facility] Primary Care Provider [facility] Michelle Norris MD Primary Care Provider Unavail [facility] Rosetta Diamond MD Primary Care Provider + Encounter Details Date Type Department Care Team Description 10/19/2011 Hospital Medical Records [address] [place] [phone] Marlen Grande Social History Tobacco Use Types [...] filedocumented in this encounter Care Teams Industrial Arts Teacher Relationship Specialty Start Date End Date Nikki Alcantar MD [address] [place] [address] PCP - General 06/26/05 03/04/17 Michelle Norris MD [address] [place] [address] PCP - General Internal Medicine 03/05/17 03/16/21 [facility], Pcp [address] [place] [address] PCP - General Internal Medicine 03/17/21 05/04/21 Michelle Norris MD [address] [place] [address] PCP - General Internal Medicine 05/05/21 09/13/22 Rosetta Diamond MD [address] [place] [address] PCP - General Internal Medicine 09/14/22 documented as of this encounter
--- OUTSIDE RECORDS SUMMARY | 2025-02-03 19:10 | XMS_ITS | Encounter Summary ---
Author Organization [facility] Address [address] [place] [address] Care Team Providers Care Electronics Technology Instructor Name Role Phone Michelle Norris MD Primary Care Provider Unavail able [facility], Pcp [facility] Michelle Norris MD Primary Care Provider Unavail able Rosetta Diamond MD Primary Care Provider + Encounter Details Date Type Department Care Team Description 11/15/2018 Release of Information Medical Records [address] [place] [phone] Abstract, Provider Social History Tobacco Use Types [...] filedocumented in this encounter Care Teams Electronics Technology Instructor Relationship Specialty Start Date End Date Michelle Norris MD PCP - General Internal Medicine 03/05/17 03/16/21 [facility], Pcp PCP - General Internal Medicine 03/17/21 05/04/21 Michelle Norris MD PCP - General Internal Medicine 05/05/21 09/13/22 Rosetta Diamond MD [address] [place] [address] PCP - General Internal Medicine 09/14/22 documented as of this encounter
--- OUTSIDE RECORDS SUMMARY | 2025-02-03 19:10 | XMS_ITS | Encounter Summary ---
Author Organization [facility] Address [address] [place] [address] Care Team Providers Care Animal Killer Name Role Phone Nikki Alcantar MD Primary Care Provider [phone] Michelle Norris MD Primary Care Provider Unavail [facility] Primary Care Provider [facility] Michelle Norris MD Primary Care Provider Unavail [facility] Rosetta Diamond MD Primary Care Provider + Encounter Details Date Type Department Care Team Description 08/18/2011 Transfer Records Medical Records [address] [place] [phone] Abstract, Provider Social History Tobacco Use Types [...] filedocumented in this encounter Care Teams Animal Killer Relationship Specialty Start Date End Date Nikki Alcantar MD [address] [place] [address] PCP - General 06/26/05 03/04/17 Michelle Norris MD [address] [place] [address] PCP - General Internal Medicine 03/05/17 03/16/21 [facility], Pcp [address] [place] [address] PCP - General Internal Medicine 03/17/21 05/04/21 Michelle Norris MD [address] [place] [address] PCP - General Internal Medicine 05/05/21 09/13/22 Rosetta Diamond MD [address] [place], [place] [phone] PCP - General Internal Medicine 09/14/22 documented as of this encounter
--- OUTSIDE RECORDS SUMMARY | 2025-02-03 19:10 | XMS_ITS | Encounter Summary ---
Author Organization [facility] Address [address] [place] [address] Care Team Providers Care Inside Sales Recruiter Name Role Phone Michelle Norris MD Primary Care Provider Unavail able [facility], Pcp Primary Care Provider [facility] Michelle Lagos MD Primary Care Provider Unavail able Rosetta Diamond MD Primary Care Provider + Reason for Visit * Reason Onset Date Comments Faxed Order 08/22/2020 Encounter Details Date Type Department Care Team Description 08/22/2020 Telephone Adult [address] [address] Michelle Norris MD Faxed Order Social History [...] TO BE SIGN AND FAX BACK TO [phone]. documented in this encounter Plan of Treatment Not on file documented as of this encounter Visit Diagnoses Not on filedocumented in this encounter Care Teams Inside Sales Recruiter Relationship Specialty Start Date End Date Michelle Norris MD PCP - General Internal Medicine 03/05/17 03/16/21 [facility], Pcp PCP - General Internal Medicine 03/17/21 05/04/21 Michelle Norris MD PCP - General Internal Medicine 05/05/21 09/13/22 Rosetta Diamond MD [address] [place] [address] PCP - General Internal Medicine 09/14/22 documented as of this encounter
--- OUTSIDE RECORDS SUMMARY | 2025-02-03 19:10 | XMS_ITS | Encounter Summary ---
Author Organization [facility] Address [address] [place] [address] Care Team Providers Care Ruffling Machine Operator Name Role Phone Michelle Norris MD Primary Care Provider Unavail able [facility], Pcp [facility] Michelle Norris MD Primary Care Provider Unavail able Rosetta Diamond MD Primary Care Provider + Encounter Details Date Type Department Care Team Description 04/12/2018 Principal Solutions Architect Report Medical Records [address] [place] [phone] Abstract, Provider Social History Tobacco Use Types [...] on filedocumented in this encounter Care Teams Ruffling Machine Operator Relationship Specialty Start Date End Date Michelle Norris MD PCP - General Internal Medicine 03/05/17 03/16/21 [facility], Pcp PCP - General Internal Medicine 03/17/21 05/04/21 Michelle Norris MD PCP - General Internal Medicine 05/05/21 09/13/22 Rosetta Diamond MD [address] [place] [address] PCP - General Internal Medicine 09/14/22 documented as of this encounter
[2025-02-03 19:11] LABS: Alanine Aminotransferase 33 U/L (0-31); Albumin Level 4.1 g/dL (3.5-5.0); Anion Gap 16 (12-20); Aspartate Amino Transferase 29 U/L (5-31); Bilirubin Total 0.2 mg/dL (0.0-1.0); Blood Urea Nitrogen 8 mg/dL (9-16); C Reactive Protein 0.55 mg/dL (< or = 0.50); Carbon Dioxide 22 mmol/L (22-29); Chloride 107 mmol/L (96-108); Creatinine Clr Calc Pharmacy 128.2; Estimated Glomerular Filt Rate > 60; Glucose Random 144 mg/dL (60-115); Potassium 3.8 mmol/L (3.3-5.1); Sodium 141 mmol/L (135-145); Total Protein 6.9 g/dL (6.5-8.0)
--- OUTSIDE RECORDS SUMMARY | 2025-02-03 19:11 | XMS_ITS | Encounter Summary ---
Author Organization [facility] Address [address] [place] [address] Care Team Providers Care Digital Color Press Operator Name Role Phone Nikki Alcantar MD Primary Care Provider [phone] Michelle Norris MD Primary Care Provider Unavail [facility] Primary Care Provider [facility] Michelle Norris MD Primary Care Provider Unavail [facility] Rosetta Diamond MD Primary Care Provider + Encounter Details Date Type Department Care Team Description 05/11/2010 Hospital Medical Records [address] [place] [address] Gulshan Alanis MD Social History Tobacco Use [...] filedocumented in this encounter Care Teams Digital Color Press Operator Relationship Specialty Start Date End Date Nikki Alcantar MD [address] [place] [address] PCP - General 06/26/05 03/04/17 Michelle Norris MD [address] [place] [address] PCP - General Internal Medicine 03/05/17 03/16/21 [facility], Pcp [address] [place] [address] PCP - General Internal Medicine 03/17/21 05/04/21 Michelle Norris MD [address] [place] [address] PCP - General Internal Medicine 05/05/21 09/13/22 Rosetta Diamond MD [address] [place] [address] PCP - General Internal Medicine 09/14/22 documented as of this encounter
--- OUTSIDE RECORDS SUMMARY | 2025-02-03 19:11 | XMS_ITS | Encounter Summary ---
Author Organization [facility] Address [address] [place] [address] Care Team Providers Care Contact Finger Assembler Name Role Phone Katherine Norris MD Primary Care Provider Unavail able [facility], [facility] Katherine Lagos MD Primary Care Provider Unavail able Rosetta Diamond MD Primary Care Provider + Reason for Visit * Reason Onset Date Comments hospital follow up 10/16/2017 Encounter Details Date Type Department Care Team Description 10/16/2017 Telephone Adult Medicine [address] [address] Katherine Norris MD hospital follow up Social [...] 1030 with KATHERINE FINE Pt seen at [facility] for crisis notes requested * Telephone Encounter - Deanna Oglesby - 10/16/2017 11:53 AM EST Hospital follow up appointment needed Hospital patient was treated at: [facility] Was this only an ER visit [...] on filedocumented in this encounter Care Teams Contact Finger Assembler Relationship Specialty Start Date End Date Katherine Norris MD PCP - General Internal Medicine 03/05/17 03/16/21 [facility] PCP - General Internal Medicine 03/17/21 05/04/21 Katherine Norris MD PCP - General Internal Medicine 05/05/21 09/13/22 Rosetta Diamond MD [address] [place] [address] PCP - General Internal Medicine 09/14/22 documented as of this encounter
--- OUTSIDE RECORDS SUMMARY | 2025-02-03 19:11 | XMS_ITS | Encounter Summary ---
Author Organization [facility] Address [address] [place] [address] Care Team Providers Care Medical Cost Consultant Name Role Phone Rosetta Diamond MD Primary Care Provider + Reason for Visit * Reason Onset Date Comments Casserole Preparer Feedback 05/01/2024 Urogynecology Encounter Details Date Type Department Care Team Description 05/01/2024 Telephone OBGYN - [place] [address] [place], [place] [phone] Rebecca Kimbrough CNM [address] [place], [place] [phone] Casserole Preparer Feedback (Urogynecology) Social History Tobacco Use Types [...] filedocumented in this encounter Care Teams Medical Cost Consultant Relationship Specialty Start Date End Date Rosetta Diamond MD [address] [place] [address] PCP - General Internal Medicine 09/14/22 documented as of this encounter
--- OUTSIDE RECORDS SUMMARY | 2025-02-03 19:11 | XMS_ITS | Encounter Summary ---
Author Organization [facility] Address [address] [place] [address] Care Team Providers Care Director Industrial Nursing Name Role Phone Nikki Alcantar MD Primary Care Provider [phone] Michelle Norris MD Primary Care Provider Unavail [facility] Primary Care Provider [facility] Michelle Norris MD Primary Care Provider Unavail [facility] Rosetta Diamond MD Primary Care Provider + Encounter Details Date Type Department Care Team Description 12/17/2013 Business Doc Medical Records [address] [place] [address] Abstract, Provider Social History Tobacco Use Types [...] filedocumented in this encounter Care Teams Director Industrial Nursing Relationship Specialty Start Date End Date Nikki Alcantar MD [address] [place] [address] PCP - General 06/26/05 03/04/17 Michelle Norris MD [address] [place] [address] PCP - General Internal Medicine 03/05/17 03/16/21 [facility], Pcp [address] [place] [address] PCP - General Internal Medicine 03/17/21 05/04/21 Michelle Norris MD [address] [place] [address] PCP - General Internal Medicine 05/05/21 09/13/22 Rosetta Diamond MD [address] [place], [place] [phone] PCP - General Internal Medicine 09/14/22 documented as of this encounter
--- OUTSIDE RECORDS SUMMARY | 2025-02-03 19:11 | XMS_ITS | Clinical Summary ---
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
--- OUTSIDE RECORDS SUMMARY | 2025-02-03 19:11 | XMS_ITS | Encounter Summary ---
Author Organization [facility] Address [address] [place] [address] Care Team Providers Care Manufacturing Plant Technician Name Role Phone Nikki Alcantar MD Primary Care Provider [phone] Michelle Norris MD Primary Care Provider Unavail [facility] Primary Care Provider [facility] Michelle Norris MD Primary Care Provider Unavail able Rosetta Diamond MD Primary Care Provider + Reason for Visit * Reason Onset Date Comments Call From Hospital 06/07/2016 Encounter Details Date Type Department Care Team Description 06/07/2016 Telephone Adult Medicine [address] [phone] Nikki Alcantar MD [address] [place] [address] [phone] Call From Hospital Social History Tobacco Use [...] Donavon Harvey - 06/07/2016 8:48 AM EDT [facility] Phsyc unit calling to inform us that patient was admitted to phsyc unit yesterday documented in this encounter Plan of Treatment Not on file documented as of this encounter Visit Diagnoses Not on filedocumented in this encounter Care Teams Manufacturing Plant Technician Relationship Specialty Start Date End Date Nikki Alcantar MD [address] [place] [address] PCP - General 06/26/05 03/04/17 Michelle Norris MD [address] [place] [address] PCP - General Internal Medicine 03/05/17 03/16/21 [place] [address] PCP - General Internal Medicine 03/17/21 05/04/21 Michelle Norris MD [address] [place] [address] PCP - General Internal Medicine 05/05/21 09/13/22 Rosetta Diamond MD [address] [place], [place] [phone] PCP - General Internal Medicine 09/14/22 documented as of this encounter
--- OUTSIDE RECORDS SUMMARY | 2025-02-03 19:11 | XMS_ITS | Encounter Summary ---
Author Organization [facility] Address [address] [place] [address] Care Team Providers Care Employment Adjudicator Name Role Phone Nikki Alcantar MD Primary Care Provider [phone] Michelle Norris MD Primary Care Provider Unavail [facility] Primary Care Provider [facility] Michelle Norris MD Primary Care Provider Unavail able Rosetta Diamond MD Primary Care Provider + Reason for Visit * Reason Onset Date Comments Faxed Order 04/26/2016 Encounter Details Date Type Department Care Team Description 04/26/2016 Telephone Adult Medicine [facility] [address] [place] [address] [phone] Nikki Alcantar MD [address] [place] [address] [phone] Faxed Order Social History Tobacco Use Types [...] on filedocumented in this encounter Care Teams Employment Adjudicator Relationship Specialty Start Date End Date Nikki Alcantar MD [address] [place] [address] PCP - General 06/26/05 03/04/17 Michelle Norris MD [address] [place] [address] PCP - General Internal Medicine 03/05/17 03/16/21 [place] [address] PCP - General Internal Medicine 03/17/21 05/04/21 Michelle Norris MD [address] [place] [address] PCP - General Internal Medicine 05/05/21 09/13/22 Rosetta Diamond MD [address] [place] [address] PCP - General Internal Medicine 09/14/22 documented as of this encounter
--- OUTSIDE RECORDS SUMMARY | 2025-02-03 19:11 | XMS_ITS | Clinical Summary ---
Author Organization [facility] Address [address] [place] [address] Care Team Providers Care Senior Account Director Name Role Phone Rosetta Diamond MD Primary Care Provider + Allergies Active Allergy Reactions Severity Noted Date Comments Codeine 04/21/2009 Unknown reaction Ziprasidone Hydrochloride 07/11/2012 Pt cant describe exact reaction [place] OTHER 02/27/2013 Penicillins 08/01/2005 RXN UNKNOWN [...] daily) 270 Lozenge 1 08/13/2020 Active Umeclidinium [place] (INCRUSE ELLIPTA) 62.5 MCG/INH AEROSOL POWDER,BREATH ACTIVATED [...] degree AV block 10/09/2017 Overview: Follows with [facility] 09/2017. Holter pending Pericardial effusion 10/09/2017 [...] Vaccine-quadrivale nt 4 Years Plus 06/25/2017 MMR (Mwbncsk-Fgopi-Nspddju) 01/13/1990, 9 PPD-RBMG 01/17/2017, 1,11/14/2010,04/14,01/30/1991 Pneumoccoccal(Adult) Polysac [...] Vaccine (2022-11 4 season) 2024 12/01/2020, 11/10/2020 BMI CHECK/ADVISE 10/15/2024 04/22/2024, 06/2024, 07/01/2021, Additional history exists INFLUENZA (Season Ended) 2025 019 (Completed), 09/03/2019, 08/28/2018, Additional history exists TOBACCO CHECK/ADVISE 04/22/2026 04/22/2024, 07/01/2021, 02/10/2021, Additional history exists CERVICAL CANCER SCREENING 04/22/20272023, 07/19/2017, 02/01/2012, Additional history exists DTAP/TDAP/TD (16 - Td or Tdap) 05/29/2032 0 05/29/2022, 04/20/2021, 08/31/2020, Additional history exists PNEUMOCOCCAL VACCINE FOR HIG H RISK PATIENTS (#2) 2042 12/15/2013 Care Teams Senior Account Director Relationship Specialty Start Date End Date Rosetta Diamond MD [address] [place] [address] [phone] PCP - General Internal Medicine 09/14/22
--- OUTSIDE RECORDS SUMMARY | 2025-02-03 19:11 | XMS_ITS | Encounter Summary ---
Author Organization [facility] Address [address] [place] [address] Care Team Providers Care Lens Coating Technician Name Role Phone Nikki Alcantar MD Primary Care Provider [phone] Michelle Norris MD Primary Care Provider Unavail [facility] Primary Care Provider [facility] Michelle Norris MD Primary Care Provider Unavail [facility] Rosetta Diamond MD Primary Care Provider + Encounter Details Date Type Department Care Team Description 09/06/2016 Home Health Certification Medical Records [address] [place] [phone] Social History Tobacco Use Types Packs/Day Years [...] on filedocumented in this encounter Care Teams Lens Coating Technician Relationship Specialty Start Date End Date Nikki Alcantar MD [address] [place] [address] PCP - General 06/26/05 03/04/17 Michelle Norris MD [address] [place] [address] PCP - General Internal Medicine 03/05/17 03/16/21 [facility], Pcp [address] [place] [address] 16[address] PCP - General Internal Medicine 03/17/21 05/04/21 Michelle Norris MD [address] [place] [address] PCP - General Internal Medicine 05/05/21 09/13/22 Rosetta Diamond MD [address] [place], [place] [phone] PCP - General Internal Medicine 09/14/22 documented as of this encounter
--- OUTSIDE RECORDS SUMMARY | 2025-02-03 19:11 | XMS_ITS | Encounter Summary ---
Author Organization [facility] Address [address] [place] [address] Care Team Providers Care Mac Operator Name Role Phone Michelle Norris MD Primary Care Provider Unavail able Rosetta Diamond MD Primary Care Provider + Encounter Details Date Type Department Care Team Description 06/09/2021 Business Doc Medical Records [address] [place] [address] Abstract, Provider Social History Tobacco Use Types [...] on filedocumented in this encounter Care Teams Mac Operator Relationship Specialty Start Date End Date Michelle Norris MD PCP - General Internal Medicine 05/05/21 09/13/22 Rosetta Diamond MD [address] [place] [address] PCP - General Internal Medicine 09/14/22 documented as of this encounter
--- OUTSIDE RECORDS SUMMARY | 2025-02-03 19:11 | XMS_ITS | Encounter Summary ---
Author Organization [facility] Address [address] [place] [address] Care Team Providers Care Lock Installer Name Role Phone Michelle Norris MD Primary Care Provider Unavail [facility] Michelle Norris MD Primary Care Provider Unavail able Rosetta Diamond MD Primary Care Provider + Encounter Details Date Type Department Care Team Description 10/07/2019 Old Medical Records Medical Records [address] [place] [address] Abstract, Provider Social History Tobacco Use Types [...] filedocumented in this encounter Care Teams Lock Installer Relationship Specialty Start Date End Date Michelle Norris MD PCP - General Internal Medicine 03/05/17 03/16/21 [facility], Pcp PCP - General Internal Medicine 03/17/21 05/04/21 Michelle Norris MD PCP - General Internal Medicine 05/05/21 09/13/22 Rosetta Diamond MD [address] [place] [address] PCP - General Internal Medicine 09/14/22 documented as of this encounter
--- OUTSIDE RECORDS SUMMARY | 2025-02-03 19:11 | XMS_ITS | Encounter Summary ---
Author Organization [facility] Address [address] [place] [address] Care Team Providers Care Package Worker Name Role Phone Nikki Alcantar MD Primary Care Provider [phone] Michelle Norris MD Primary Care Provider Unavail [facility] Primary Care Provider [facility] Michelle Norris MD Primary Care Provider Unavail [facility] Rosetta Diamond MD Primary Care Provider + Encounter Details Date Type Department Care Team Description 06/06/2016 Cyber Ops Planner Report Medical Records [address] [place] [address] Chuck Dave MD Social History Tobacco Use [...] on filedocumented in this encounter Care Teams Package Worker Relationship Specialty Start Date End Date Nikki Alcantar MD [address] [place] [address] PCP - General 06/26/05 03/04/17 Michelle Norris MD [address] [place] [address] PCP - General Internal Medicine 03/05/17 03/16/21 [facility], Pcp [address] [place] [address]13 PCP - General Internal Medicine 03/17/21 05/04/21 Michelle Norris MD [address] [place] [address] PCP - General Internal Medicine 05/05/21 09/13/22 Rosetta Diamond MD [address] [place] [address] PCP - General Internal Medicine 09/14/22 documented as of this encounter
--- OUTSIDE RECORDS SUMMARY | 2025-02-03 19:11 | XMS_ITS | Encounter Summary ---
Author Organization [facility] Address [address] [place] [address] Care Team Providers Care Tank Truck Driver Name Role Phone Michelle Norris MD Primary Care Provider Unavail able Rosetta Diamond MD Primary Care Provider + Encounter Details Date Type Department Care Team Description 05/05/2021 [facility] Medical Records [address] [place] [address] Robby Bazan Social History Tobacco Use Types [...] filedocumented in this encounter Care Teams Tank Truck Driver Relationship Specialty Start Date End Date Michelle Norris MD PCP - General Internal Medicine 05/05/21 09/13/22 Rosetta Diamond MD [address] [place] [address] 69[address] PCP - General Internal Medicine 09/14/22 documented as of this encounter
--- OUTSIDE RECORDS SUMMARY | 2025-02-03 19:11 | XMS_ITS | Encounter Summary ---
Author Organization [facility] Address [address] [place] [address] Care Team Providers Care Wound/Ostomy Nurse Name Role Phone Nikki Alcantar MD Primary Care Provider [phone] Michelle Norris MD Primary Care Provider Unavail [facility] Primary Care Provider [facility] Michelle Norris MD Primary Care Provider Unavail [facility] Rosetta Diamond MD Primary Care Provider + Encounter Details Date Type Department Care Team Description 07/14/2013 Hospital Medical Records [address] [place] [address] Social History Tobacco Use Types Packs/Day Years [...] on filedocumented in this encounter Care Teams Wound/Ostomy Nurse Relationship Specialty Start Date End Date Nikki Alcantar MD [address] [place] [address] PCP - General 06/26/05 03/04/17 Michelle Norris MD [address] [place] [address] PCP - General Internal Medicine 03/05/17 03/16/21 [facility], Pcp [address] [place] [address]253 PCP - General Internal Medicine 03/17/21 05/04/21 Michelle Norris MD [address] [place] [address] 99384 PCP - General Internal Medicine 05/05/21 09/13/22 Rosetta Diamond MD [address] [place] [address] KARTIK CHEN [address] PCP - General Internal Medicine 09/14/22 documented as of this encounter
--- OUTSIDE RECORDS SUMMARY | 2025-02-03 19:11 | XMS_ITS | Encounter Summary ---
Author Organization [facility] Address [address] [place] [address] Care Team Providers Care Transformer Repairer Name Role Phone Nikki Alcantar MD Primary Care Provider Michelle Norris MD Primary Care Provider Unavail [facility] Michelle [facility] MD Primary Care Provider Unavail able Rosetta Diamond MD Primary Care Provider + Reason for Visit * Reason Onset Date Comments refill request 07/18/2011 Encounter Details Date Type Department Care Team Description 07/18/2011 Refill Adult Medicine [address] [phone] Nikki Alcantar MD [address] [place] [address] [phone] refill request Social History Tobacco Use Types [...] NO Patients current insurance carrier is: [place] Product Type: [place] [id number] documented in this encounter Plan of Treatment Not on file documented as of this encounter Visit Diagnoses Not on filedocumented in this encounter Care Teams Transformer Repairer Relationship Specialty Start Date End Date Nikki Alcantar MD [address] [place] [address]38 PCP - General 06/26/05 03/04/17 Michelle Norris MD [address] [place] [address] 07710 PCP - General Internal Medicine 03/05/17 03/16/21 [facility], Pcp [address] [place] [address] 32374 PCP - General Internal Medicine 03/17/21 05/04/21 Michelle Norris MD [address] [place] [address] 14287 PCP - General Internal Medicine 05/05/21 09/13/22 Rosetta Diamond MD [address] [place] [address] PCP - General Internal Medicine 09/14/22 documented as of this encounter
--- OUTSIDE RECORDS SUMMARY | 2025-02-03 19:11 | XMS_ITS | Encounter Summary ---
Author Organization [facility] Address [address] [place] [address] Care Team Providers Care Database Security Expert Name Role Phone Michelle Norris MD Primary Care Provider Unavail able Rosetta Diamond MD Primary Care Provider + Encounter Details Date Type Department Care Team Description 06/15/2022 Business Doc Medical Records [address] [place] [phone] Abstract, Provider Social History Tobacco Use Types [...] filedocumented in this encounter Care Teams Database Security Expert Relationship Specialty Start Date End Date Michelle Norris MD PCP - General Internal Medicine 05/05/21 09/13/22 Rosetta Diamond MD [address] [place] [address] [phone] PCP - General Internal Medicine 09/14/22 documented as of this encounter
--- OUTSIDE RECORDS SUMMARY | 2025-02-03 19:11 | XMS_ITS | Encounter Summary ---
Author Organization [facility] Address [address] [place] [address] Care Team Providers Care Chronic Specialist Name Role Phone Nikki Alcantar MD Primary Care Provider [phone] Michelle Norris MD Primary Care Provider Unavail [facility] Primary Care Provider [facility] Michelle Norris MD Primary Care Provider Unavail [facility] Rosetta Diamond MD Primary Care Provider + Encounter Details Date Type Department Care Team Description 11/01/2009 Hospital Medical Records [address] [place] [address] John Jett Social History Tobacco Use Types [...] on filedocumented in this encounter Care Teams Chronic Specialist Relationship Specialty Start Date End Date Nikki Alcantar MD [address] [place] [address]27 PCP - General 06/26/05 03/04/17 Michelle Norris MD [address] [place] [address] PCP - General Internal Medicine 03/05/17 03/16/21 [facility], Pcp [address] [place] [address] PCP - General Internal Medicine 03/17/21 05/04/21 Michelle Norris MD [address] [place] [address] [place] [address] PCP - General Internal Medicine 05/05/21 09/13/22 Rosetta Diamond MD [address], [place] [phone] PCP - General Internal Medicine 09/14/22 documented as of this encounter
--- OUTSIDE RECORDS SUMMARY | 2025-02-03 19:11 | XMS_ITS | Encounter Summary ---
Author Organization [facility] Address [address] [place] [address] Care Team Providers Care Bus Monitor Name Role Phone Nikki Alcantar MD Primary Care Provider [phone] Michelle Norris MD Primary Care Provider Unavail [facility] Primary Care Provider [facility] Michelle Norris MD Primary Care Provider [facility] Rosetta Diamond MD Primary Care Provider + Encounter Details Date Type Department Care Team Description 11/15/2010 Business Doc Medical Records [address] [place] [address]69 Abstract, Provider Social History Tobacco Use Types [...] on filedocumented in this encounter Care Teams Bus Monitor Relationship Specialty Start Date End Date Nikki Alcantar MD [address] [place] [address] PCP - General 06/26/05 03/04/17 Michelle Norris MD [address] [place] [address] PCP - General Internal Medicine 03/05/17 03/16/21 [facility], Pcp [address] [place] [address] PCP - General Internal Medicine 03/17/21 05/04/21 Michelle Norris MD [address] [place] [address] PCP - General Internal Medicine 05/05/21 09/13/22 Rosetta Diamond MD [address] [place] [address] PCP - General Internal Medicine 09/14/22 documented as of this encounter
--- OUTSIDE RECORDS SUMMARY | 2025-02-03 19:11 | XMS_ITS | Encounter Summary ---
Author Organization [facility] Address [address] [place] [address] Care Team Providers Care Accounts Payable Lead Name Role Phone Nikki Alcantar MD Primary Care Provider [phone] Michelle Norris MD Primary Care Provider Unavail [facility] Primary Care Provider [facility] Michelle Norris MD Primary Care Provider Unavail [facility] Rosetta Diamond MD Primary Care Provider + Encounter Details Date Type Department Care Team Description 10/05/2010 Hospital Medical Records [address] [place] [address]65 Ebony Pacheco Social History Tobacco Use Types [...] in this encounter Care Teams Accounts Payable Lead Relationship Specialty Start Date End Date Nikki Alcantar MD [address] [place] [address]60 PCP - General 06/26/05 03/04/17 Michelle Norris MD [address] [place] [address] 36273 PCP - General Internal Medicine 03/05/17 03/16/21 [facility], Pcp [address] [place] [address] 19575 PCP - General Internal Medicine 03/17/21 05/04/21 Michelle Norris MD [address] [place] [address] 92641 PCP - General Internal Medicine 05/05/21 09/13/22 Rosetta Diamond MD [address] [place] [address] PCP - General Internal Medicine 09/14/22 documented as of this encounter
--- OUTSIDE RECORDS SUMMARY | 2025-02-03 19:11 | XMS_ITS | Encounter Summary ---
Author Organization [facility] Address [address] [place] [address] Care Team Providers Care Poultry Farmer Egg Name Role Phone Michelle Norris MD Primary Care Provider Unavail able [facility], [facility] Primary Care Provider Unavailabl Michelle Lagos MD Primary Care Provider Unavail able Rosetta Diamond MD Primary Care Provider + Reason for Visit * Reason Onset Date Comments refill request 10/23/2019 lisinopril (PRIN IVIL,ZESTRIL) 5 MG tablet Encounter Details Date Type Department Care Team Description 10/23/2019 Refill Adult Medicine [address] [address] Michelle Norris MD refill request (lisinopril (PRINIVIL,ZESTRIL) [...] / Plan[place] / Product Type: MEDICARE [id number] documented in this encounter Plan of Treatment Not on file documented as of this encounter Visit Diagnoses Not on filedocumented in this encounter Care Teams Poultry Farmer Egg Relationship Specialty Start Date End Date Michelle Norris MD PCP - General Internal Medicine 03/05/17 03/16/21 [facility], Pcp PCP - General Internal Medicine 03/17/21 05/04/21 Michelle Norris MD PCP - General Internal Medicine 05/05/21 09/13/22 Rosetta Diamond MD [address] [place] [address] PCP - General Internal Medicine 09/14/22 documented as of this encounter
--- OUTSIDE RECORDS SUMMARY | 2025-02-03 19:11 | XMS_ITS | Encounter Summary ---
Author Organization [facility] Address [address] [place] [address] Care Team Providers Care Youth Development Specialist Name Role Phone Michelle Norris MD Primary Care Provider Unavail able [facility], Pcp Primary Care Provider [facility] Michelle Norris MD Primary Care Provider Unavail able Rosetta Diamond MD Primary Care Provider + Encounter Details Date Type Department Care Team Description 08/08/2019 Old Medical Records Medical Records [address] [place] [address] Abstract, Provider Social History Tobacco Use Types [...] Medicine 05/05/21 09/13/22 Rosetta Diamond MD [address] [place] [address] 47903 PCP - General Internal Medicine 09/14/22 documented as of this encounter
--- OUTSIDE RECORDS SUMMARY | 2025-02-03 19:11 | XMS_ITS | Encounter Summary ---
Author Organization [facility] Address [address] [place] [address] Care Team Providers Care Administrative Support Manager Name Role Phone Nikki Alcantar MD Primary Care Provider [phone] Michelle Norris MD Primary Care Provider Unavail [facility] Primary Care Provider [facility] Michelle Norris MD Primary Care Provider Unavail [facility] Rosetta Diamond MD Primary Care Provider + Encounter Details Date Type Department Care Team Description 10/07/2010 Hospital Medical Records [address] [place] [address] Alverto Hernandez Social History Tobacco Use Types [...] filedocumented in this encounter Care Teams Administrative Support Manager Relationship Specialty Start Date End Date Nikki Alcantar MD [address] [place] [address] 45566 PCP - General 06/26/05 03/04/17 Michelle Norris MD [address] [place] [address] 41791 PCP - General Internal Medicine 03/05/17 03/16/21 [facility], Pcp [address] [place] [address] 38582 PCP - General Internal Medicine 03/17/21 05/04/21 Michelle Norris MD [address] [place] [address] 96542 PCP - General Internal Medicine 05/05/21 09/13/22 Rosetta Diamond MD [address] [place] [address] 0[address]20 PCP - General Internal Medicine 09/14/22 documented as of this encounter
--- OUTSIDE RECORDS SUMMARY | 2025-02-03 19:11 | XMS_ITS | Encounter Summary ---
Author Organization [facility] Address [address] [place] [address] Care Team Providers Care Metal Trades Instructor Name Role Phone Michelle Norris MD Primary Care Provider Unavail able [facility], Pcp [facility] Michelle Norris MD Primary Care Provider Unavail able Rosetta Diamond MD Primary Care Provider + Encounter Details Date Type Department Care Team Description 11/18/2017 Hospital Medical Records [address] [place] [address] Marlen Grande Social History Tobacco Use Types [...] on filedocumented in this encounter Care Teams Metal Trades Instructor Relationship Specialty Start Date End Date Michelle Norris MD PCP - General Internal Medicine 03/05/17 03/16/21 [facility], Pcp PCP - General Internal Medicine 03/17/21 05/04/21 Michelle Norris MD PCP - General Internal Medicine 05/05/21 09/13/22 Rosetta Diamond MD [address] [place] [address] PCP - General Internal Medicine 09/14/22 documented as of this encounter
--- OUTSIDE RECORDS SUMMARY | 2025-02-03 19:11 | XMS_ITS | Encounter Summary ---
Author Organization [facility] Address [address] [place] [address] Care Team Providers Care Geriatric Nursing Assistant Name Role Phone Nikki Alcantar MD Primary Care Provider [phone] Michelle Norris MD Primary Care Provider Unavail able [facility] Michelle Norris MD Primary Care Provider Unavail able Rosetta Diamond MD Primary Care Provider + Reason for Visit * Reason [place] Date Comments Follow-up Appt Unavailable 12/08/2013 Encounter Details Date Type Department Care Team Description 12/08/2013 Telephone Adult Medicine [address] [phone] Nikki Alcantar MD [address] [place] [address] [phone] Follow-up Appt Unavailable Social History Tobacco Use [...] FYI the pt is admitted on 12/06/2013 [facility] documented in this encounter Plan of Treatment Not on file documented as of this encounter Visit Diagnoses Not on filedocumented in this encounter Care Teams Geriatric Nursing Assistant Relationship Specialty Start Date End Date Nikki Alcantar MD [address] [place] [address] PCP - General 06/26/05 03/04/17 Michelle Norris MD [address] [place] [address] 14127 PCP - General Internal Medicine 03/05/17 03/16/21 [place] [address] PCP - General Internal Medicine 03/17/21 05/04/21 Michelle Norris MD [address] [place] [address] 26687 PCP - General Internal Medicine 05/05/21 09/13/22 Rosetta Diamond MD [address] [place], [place] [phone] PCP - General Internal Medicine 09/14/22 documented as of this encounter
--- OUTSIDE RECORDS SUMMARY | 2025-02-03 19:11 | XMS_ITS | Encounter Summary ---
Author Organization [facility] Address [address] [place] [address] Care Team Providers Care School Year Nanny Name Role Phone Michelle Norris MD Primary Care Provider Unavail able [facility], Pcp Primary Care Provider Unavailabl Michelle Lagos MD Primary Care Provider Unavail able Rosetta Diamond MD Primary Care Provider + Reason for Visit * Reason [place] Date Comments Appointment Cancelled 10/30/2019 Encounter Details Date Type Department Care Team Description 10/30/2019 Telephone Adult [address] [address] Michelle Norris MD Appointment Cancelled Social History [...] 10/30/2019 10:29 AM EST FYI-Call received from [facility] to cancel the 10/31 hospital f/u appointment. Patient is currently at [facility], admitted on 10/24/19. documented in this encounter Plan of Treatment Not on file documented as of this encounter Visit Diagnoses Not on filedocumented in this encounter Care Teams School Year Nanny Relationship Specialty Start Date End Date Michelle Norris MD PCP - General Internal Medicine 03/05/17 03/16/21 [facility], Pcp PCP - General Internal Medicine 03/17/21 05/04/21 Michelle Norris MD PCP - General Internal Medicine 05/05/21 09/13/22 Rosetta Diamond MD [address] [place] [address] 8[address]95 PCP - General Internal Medicine 09/14/22 documented as of this encounter
--- OUTSIDE RECORDS SUMMARY | 2025-02-03 19:11 | XMS_ITS | Encounter Summary ---
Author Organization [facility] Address [address] [place] [address] Care Team Providers Care Laser Beam Color Scanner Operator Name Role Phone Nikki Alcantar MD Primary Care Provider [phone] Michelle Norris MD Primary Care Provider Unavail [facility] Primary Care Provider [facility] Michelle Norris MD Primary Care Provider Unavail [facility] Rosetta Diamond MD Primary Care Provider + Encounter Details Date Type Department Care Team Description 07/10/2013 Hospital Medical Records [address] [place] [address] Erik Sanches Social History Tobacco Use Types [...] on filedocumented in this encounter Care Teams Laser Beam Color Scanner Operator Relationship Specialty Start Date End Date Nikki Alcantar MD [address] [place] [address]46 PCP - General 06/26/05 03/04/17 Michelle Norris MD [address] [place] [address] 95056 PCP - General Internal Medicine 03/05/17 03/16/21 [facility], Pcp [address] [place] [address] 83270 PCP - General Internal Medicine 03/17/21 05/04/21 Michelle Norris MD [address] [place] [address] 47616 PCP - General Internal Medicine 05/05/21 09/13/22 Rosetta Diamond MD [address] [place] [address] PCP - General Internal Medicine 09/14/22 documented as of this encounter
--- OUTSIDE RECORDS SUMMARY | 2025-02-03 19:11 | XMS_ITS | Encounter Summary ---
Author Organization [facility] Address [address] [place] [address] Care Team Providers Care Trains Service Conductor Name Role Phone Michelle Norris MD Primary Care Provider Unavail able [facility], Pcp Primary Care Provider Michelle Abdi MD Primary Care Provider Unavail able Rosetta Diamond MD Primary Care Provider + Reason for Visit * Reason [place] Date Comments hospital follow up 09/05/2017 Encounter Details Date Type Department Care Team Description 09/05/2017 Telephone Adult [address] [address] Michelle Norris MD hospital follow up Social [...] 09/05/2017 10:11 AM EST Patient admitted at [facility] today. documented in this encounter Plan of Treatment Not on file documented as of this encounter Visit Diagnoses Not on filedocumented in this encounter Care Teams Trains Service Conductor Relationship Specialty Start Date End Date Michelle Norris MD PCP - General Internal Medicine 03/05/17 03/16/21 [facility], Pcp PCP - General Internal Medicine 03/17/21 05/04/21 Michelle Norris MD PCP - General Internal Medicine 05/05/21 09/13/22 Rosetta Diamond MD [address] [place] [address] PCP - General Internal Medicine 09/14/22 documented as of this encounter
--- OUTSIDE RECORDS SUMMARY | 2025-02-03 19:11 | XMS_ITS | Encounter Summary ---
Author Organization [facility] Address [address] [place] [address] Care Team Providers Care Curator Of Collections Name Role Phone Michelle Norris MD Primary Care Provider Unavail able [facility], Pcp [facility] Michelle Lagos MD Primary Care Provider Unavail able Rosetta Diamond MD Primary Care Provider + Reason for Visit * Reason [place] Date Comments hospital follow up 08/29/2017 Encounter Details Date Type Department Care Team Description 08/29/2017 Telephone Adult Medicine [address] [address] Michelle Norris MD hospital follow up Social [...] appointment needed Hospital patient was treated at: [facility] Was this only an ER visit or [...] on filedocumented in this encounter Care Teams Curator Of Collections Relationship Specialty Start Date End Date Michelle Norris MD PCP - General Internal Medicine 03/05/17 03/16/21 [facility] [place] - [place] Internal Medicine 03/17/21 05/04/21 Michelle Norris MD PCP - General Internal Medicine 05/05/21 09/13/22 Rosetta Diamond MD [address] [place] [address] PCP - General Internal Medicine 09/14/22 documented as of this encounter
--- OUTSIDE RECORDS SUMMARY | 2025-02-03 19:11 | XMS_ITS | Encounter Summary ---
Author Organization [facility] Address [address] [place] [address] Care Team Providers Care Health Services Information Specialist Name Role Phone Nikki Alcantar MD Primary Care Provider [phone] Michelle Norris MD Primary Care Provider Unavail [facility] Primary Care Provider [facility] Michelle Norris MD Primary Care Provider Unavail [facility] Rosetta Diamond MD Primary Care Provider + Encounter Details Date Type Department Care Team Description 12/24/2013 Hospital Medical Records [address] [place] [address] Marlen Grande Social History Tobacco Use Types [...] filedocumented in this encounter Care Teams Health Services Information Specialist Relationship Specialty Start Date End Date Nikki Alcantar MD [address] [place] [address]592 PCP - General 06/26/05 03/04/17 Michelle Norris MD [address] [place] [address] 41284 PCP - General Internal Medicine 03/05/17 03/16/21 [facility], Pcp [address] [place] [address] 37803 PCP - General Internal Medicine 03/17/21 05/04/21 Michelle Norris MD [address] [place] [address] 48597 PCP - General Internal Medicine 05/05/21 09/13/22 Rosetta Diamond MD [address] [place] [address] PCP - General Internal Medicine 09/14/22 documented as of this encounter
--- OUTSIDE RECORDS SUMMARY | 2025-02-03 19:11 | XMS_ITS | Encounter Summary ---
Author Organization [facility] Address [address] [place] [address] Care Team Providers Care Athletic Shoe Designer Name Role Phone Nikki Alcantar MD Primary Care Provider Michelle Norrsi MD Primary Care Provider Unavail able [facility] Primary Care Provider [facility] Michelle Norris MD Primary Care Provider Unavail able Rosetta Diamond MD Primary Care Provider + Reason for Visit * Reason [place] Date Comments [facility] Call 08/18/2016 Encounter Details Date Type Department Care Team Description 08/18/2016 Telephone Adult Medicine [address] [phone] Nikki Alcantar MD [address] [place] [address] [phone] [facility] Call Social History Tobacco Use Types [...] filedocumented in this encounter Care Teams Athletic Shoe Designer Relationship Specialty Start Date End Date Nikki Alcantar MD [address] [place] [address] PCP - General 06/26/05 03/04/17 Michelle Norris MD [address] [place], [place] [phone] PCP - General Internal Medicine 03/05/17 03/16/21 [place] [address] PCP - General Internal Medicine 03/17/21 05/04/21 Michelle Norris MD [address] [place] [address] PCP - General Internal Medicine 05/05/21 09/13/22 Rosetta Diamond MD [address] [place] [address] PCP - General Internal Medicine 09/14/22 documented as of this encounter
--- OUTSIDE RECORDS SUMMARY | 2025-02-03 19:11 | XMS_ITS | Encounter Summary ---
Author Organization [facility] Address [address] [place] [address] Care Team Providers Care Student Driving Instructor Name Role Phone Nikki Alcantar MD Primary Care Provider [phone] Michelle Norris MD Primary Care Provider Unavail [facility] Primary Care Provider [facility] Michelle Norris MD Primary Care Provider Unavail [facility] Rosetta Diamond MD Primary Care Provider + Encounter Details Date Type Department Care Team Description 04/23/2016 Hospital Medical Records [address] [place] [address] Rod Mccoy MD Social History Tobacco Use [...] filedocumented in this encounter Care Teams Student Driving Instructor Relationship Specialty Start Date End Date Nikki Alcantar MD [address] [place] [address]873 PCP - General 06/26/05 03/04/17 Michelle Norris MD [address] [place] [address] 21314 PCP - General Internal Medicine 03/05/17 03/16/21 [facility], Pcp [address] [place] [address] 49685 PCP - General Internal Medicine 03/17/21 05/04/21 Michelle Norris MD [address] [place] [address] 85492 PCP - General Internal Medicine 05/05/21 09/13/22 Rosetta Diamond MD [address] [place] [address] PCP - General Internal Medicine 09/14/22 documented as of this encounter
--- OUTSIDE RECORDS SUMMARY | 2025-02-03 19:11 | XMS_ITS | Encounter Summary ---
Author Organization [facility] Address [address] [place] [address] Care Team Providers Care Vinyl Welder And Fabricator Name Role Phone Michelle Norris MD Primary Care Provider Unavail able [facility], Pcp Primary Care Provider [facility] Michelle Norris MD Primary Care Provider Unavail able Rosetta Diamond MD Primary Care Provider + Encounter Details Date Type Department Care Team Description 10/16/2017 Hospital Medical Records [address] [place] [address] [id number] Carlos Landrum Social History Tobacco Use Types [...] on filedocumented in this encounter Care Teams Vinyl Welder And Fabricator Relationship Specialty Start Date End Date Michelle Norris MD PCP - General Internal Medicine 03/05/17 03/16/21 [facility], Pcp PCP - General Internal Medicine 03/17/21 05/04/21 Michelle Norris MD PCP - General Internal Medicine 05/05/21 09/13/22 Rosetta Diamond MD [address] [place] [address] PCP - General Internal Medicine 09/14/22 documented as of this encounter
--- OUTSIDE RECORDS SUMMARY | 2025-02-03 19:11 | XMS_ITS | Encounter Summary ---
Author Organization [facility] Address [address] [place] [address] Care Team Providers Care Pediatrician Active Practice Name Role Phone Michelle Norris MD Primary Care Provider Unavail able [facility], [facility] Primary Care Provider [facility] Michelle Lagos MD Primary Care Provider Unavail able Rosetta Diamond MD Primary Care Provider + Reason for Visit * Reason [place] Date Comments Call From Hospital 08/15/2019 Encounter Details Date Type Department Care Team Description 08/15/2019 Telephone Adult Medicine [address] [address] Michelle Norris MD Call From Hospital Social [...] AM EDT Information Needed Who is calling: [facility] Phychiatric Unit Information being requested? Calling [...] on filedocumented in this encounter Care Teams Pediatrician Active Practice Relationship Specialty Start Date End Date Michelle Norris MD PCP - General Internal Medicine 03/05/17 03/16/21 [facility], [facility] PCP - General Internal Medicine 03/17/21 05/04/21 Michelle Norris MD PCP - General Internal Medicine 05/05/21 09/13/22 Rosetta Diamond MD [address] [place] [address] PCP - General Internal Medicine 09/14/22 documented as of this encounter
--- OUTSIDE RECORDS SUMMARY | 2025-02-03 19:11 | XMS_ITS | Encounter Summary ---
Author Organization [facility] Address [address] [place] [address] Care Team Providers Care Sales Representative [employer] Name Role Phone Nikki Alcantar MD Primary Care Provider [phone] Michelle Norris MD Primary Care Provider Unavail [facility] Primary Care Provider [facility] Michelle Norris MD Primary Care Provider Unavail [facility] Rosetta Diamond MD Primary Care Provider + Encounter Details Date Type Department Care Team Description 08/19/2009 Hospital Medical Records [address] [place] [address] Sumeet Yadav Social History Tobacco Use Types [...] filedocumented in this encounter Care Teams Sales Representative [employer] Relationship Specialty Start Date End Date Nikki Alcantar MD [address] [place] [address] PCP - General 06/26/05 03/04/17 Michelle Norris MD [address] [place] [address] PCP - General Internal Medicine 03/05/17 03/16/21 [facility], Pcp [address] [place] [address] PCP - General Internal Medicine 03/17/21 05/04/21 Michelle Norris MD [address] [place] [address] [place] [address] PCP - General Internal Medicine 05/05/21 09/13/22 Rosetta Diamond MD [address] [place], [place] [phone] PCP - General Internal Medicine 09/14/22 documented as of this encounter
--- OUTSIDE RECORDS SUMMARY | 2025-02-03 19:11 | XMS_ITS | Encounter Summary ---
Author Organization [facility] Address [address] [place] [address] Care Team Providers Care Hydrometallurgical Engineer Name Role Phone Nikki Alcantar MD Primary Care Provider Michelle Norris MD Primary Care Provider Unavail [facility] Primary Care Provider [facility] Michelle Norris MD Primary Care Provider Unavail [facility] Rosetta Diamond MD Primary Care Provider + Encounter Details Date Type Department Care Team Description 07/13/2009 Hospital Medical Records [address] [place] [address] Colon, Anabel Social History Tobacco Use Types [...] on filedocumented in this encounter Care Teams Hydrometallurgical Engineer Relationship Specialty Start Date End Date Nikki Alcantar MD [address] [place] [address] PCP - General 06/26/05 03/04/17 Michelle Norris MD [address] [place] [address] 31985 PCP - General Internal Medicine 03/05/17 03/16/21 [facility], Pcp [address] [place] [address] PCP - General Internal Medicine 03/17/21 05/04/21 Michelle Norris MD [address] [place] [address]671 PCP - General Internal Medicine 05/05/21 09/13/22 Rosetta Diamond MD [address] [place] [address] PCP - General Internal Medicine 09/14/22 documented as of this encounter
--- OUTSIDE RECORDS SUMMARY | 2025-02-03 19:11 | XMS_ITS | Encounter Summary ---
Author Organization [facility] Address [address] [place] [address] Care Team Providers Care Glass Production Machine Operator Name Role Phone Rosetta Diamond MD Primary Care Provider + Reason for Visit * Reason [place] Date Comments hospital follow up 10/12/2022 Encounter Details Date Type Department Care Team Description 10/12/2022 Telephone Adult Medicine [facility] [address] [place] [address] [phone] Rosetta Diamond MD [address] [place] [address] [phone] hospital follow up Social History Tobacco Use [...] filedocumented in this encounter Care Teams Glass Production Machine Operator Relationship Specialty Start Date End Date Rosetta Diamond MD [address] [place] [address] PCP - General Internal Medicine 09/14/22 documented as of this encounter
--- OUTSIDE RECORDS SUMMARY | 2025-02-03 19:11 | XMS_ITS | Encounter Summary ---
Author Organization [facility] Address [address] [place] [address] Care Team Providers Care Office Automation Technician Name Role Phone Nikki Alcantar MD Primary Care Provider [phone] Michelle Norris MD Primary Care Provider Unavail [facility] Primary Care Provider [facility] Michelle Norris MD Primary Care Provider Unavail [facility] Rosetta Diamond MD Primary Care Provider + Encounter Details Date Type Department Care Team Description 09/30/2010 Hospital Medical Records [address] [place] [address] Rolando Ku Social History Tobacco Use Types [...] filedocumented in this encounter Care Teams Office Automation Technician Relationship Specialty Start Date End Date Nikki Alcantar MD [address] [place] [address] PCP - General 06/26/05 03/04/17 Michelle Norris MD [address] [place] [address] PCP - General Internal Medicine 03/05/17 03/16/21 [facility], Pcp [address] [place] [address] PCP - General Internal Medicine 03/17/21 05/04/21 Michelle Norris MD [address] [place] [address] [place] [address] PCP - General Internal Medicine 05/05/21 09/13/22 Rosetta Diamond MD [address] [place], [place] [phone] PCP - General Internal Medicine 09/14/22 documented as of this encounter
--- OUTSIDE RECORDS SUMMARY | 2025-02-03 19:11 | XMS_ITS | Encounter Summary ---
Author Organization [facility] Address [address] [place] [address] Care Team Providers Care Commissioner Conservation Of Resources Name Role Phone Michelle Norris MD Primary Care Provider Unavail able [facility], [facility] Primary Care Provider [facility] Michelle Lagos MD Primary Care Provider Unavail able Rosetta Diamond MD Primary Care Provider + Reason for Visit * Reason Onset Date Comments er follow up 07/24/2019 pt seen at [facility] for SI and depression Encounter Details Date Type Department Care Team Description 07/24/2019 Telephone Adult Medicine [address] [address] Michelle Norris MD er follow up (pt seen at [facility] for SI and depression) Social History [...] 9:40 AM EDT Pt seen at the [facility] for SI and depression. Was cleared by N for discharge. documented in this encounter Plan of Treatment Not on file documented as of this encounter Visit Diagnoses Not on filedocumented in this encounter Care Teams Commissioner Conservation Of Resources Relationship Specialty Start Date End Date Michelle Norris MD PCP - General Internal Medicine 03/05/17 03/16/21 [facility], Pcp PCP - General Internal Medicine 03/17/21 05/04/21 Michelle Norris MD PCP - General Internal Medicine 05/05/21 09/13/22 Rosetta Diamond MD [address] [place] [address] PCP - General Internal Medicine 09/14/22 documented as of this encounter
--- OUTSIDE RECORDS SUMMARY | 2025-02-03 19:11 | XMS_ITS | Encounter Summary ---
Author Organization [facility] Address [address] [place] [address] Care Team Providers Care Rn Telephone Triage Name Role Phone Katherine Norris MD Primary Care Provider Unavail able [facility] [place] [place] Primary Care Provider [facility] Katherine Lagos MD Primary Care Provider Unavail able Rosetta Diamond MD Primary Care Provider + Reason for Visit * Reason Onset Date Comments Call From Hospital 10/14/2019 Encounter Details Date Type Department Care Team Description 10/14/2019 Telephone Adult Medicine [address] [address] Katherine Norris MD Call From Hospital Social [...] - 10/14/2019 12:53 PM EST Aurea from [facility] is calling as FYI to KATHERINE NORRIS patient has been admitted to hospital since 10/08/19. She states if any questions feel free to call her at [phone] documented in this encounter Plan of Treatment Not on file documented as of this encounter Visit Diagnoses Not on filedocumented in this encounter Care Teams Rn Telephone Triage Relationship Specialty Start Date End Date Katherine Norris MD PCP - General Internal Medicine 03/05/17 03/16/21 [facility], Pcp PCP - General Internal Medicine 03/17/21 05/04/21 Katherine Norris MD PCP - General Internal Medicine 05/05/21 09/13/22 Rosetta Diamond MD [address] [place] [address] PCP - General Internal Medicine 09/14/22 documented as of this encounter
--- OUTSIDE RECORDS SUMMARY | 2025-02-03 19:11 | XMS_ITS | Encounter Summary ---
Author Organization [facility] Address [address] [place] [address] Care Team Providers Care Cloth Mercerizer Back Tender Name Role Phone Nikki Alcantar MD Primary Care Provider [phone] Michelle Norris MD Primary Care Provider Unavail [facility] Primary Care Provider [facility] Michelle Norris MD Primary Care Provider Unavail [facility] Rosetta Diamond MD Primary Care Provider + Encounter Details Date Type Department Care Team Description 07/10/2011 Hospital Medical Records [address] [place] [address] Julio Gilmore Social History Tobacco Use Types [...] filedocumented in this encounter Care Teams Cloth Mercerizer Back Tender Relationship Specialty Start Date End Date Nikki Alcantar MD [address] [place] [address] PCP - General 06/26/05 03/04/17 Michelle Norris MD [address] [place] [address] PCP - General Internal Medicine 03/05/17 03/16/21 [facility], Pcp [address] [place] [address] PCP - General Internal Medicine 03/17/21 05/04/21 Michelle Norris MD [address] [place] [address] PCP - General Internal Medicine 05/05/21 09/13/22 Rosetta Diamond MD [address] [place] [address] PCP - General Internal Medicine 09/14/22 documented as of this encounter
--- OUTSIDE RECORDS SUMMARY | 2025-02-03 19:11 | XMS_ITS | Encounter Summary ---
Author Organization [facility] Address [address] [place] [address] Care Team Providers Care Bridal Consultant Name Role Phone Michelle Norris MD Primary Care Provider Unavail able [facility], Pcp Primary [facility] Michelle Norris MD Primary Care Provider Unavail able Rosetta Diamond MD Primary Care Provider + Encounter Details Date Type Department Care Team Description 09/22/2017 Hospital Medical Records [address] [place] [address] Social History Tobacco Use Types Packs/Day Years [...] filedocumented in this encounter Care Teams Bridal Consultant Relationship Specialty Start Date End Date Michelle Norris MD PCP - General Internal Medicine 03/05/17 03/16/21 [facility], Pcp PCP - General Internal Medicine 03/17/21 05/04/21 Michelle Norris MD PCP - General Internal Medicine 05/05/21 09/13/22 Rosetta Diamond MD [address] [place] [address] PCP - General Internal Medicine 09/14/22 documented as of this encounter
--- OUTSIDE RECORDS SUMMARY | 2025-02-03 19:11 | XMS_ITS | Encounter Summary ---
Author Organization [facility] Address [address] [place] [address] Care Team Providers Care Supervisor Gate Services Name Role Phone Nikki Alcantar MD Primary Care Provider [phone] Michelle Norris MD Primary Care Provider Unavail [facility] Primary Care Provider [facility] Michelle Norris MD Primary Care Provider Unavail [facility] Rosetta Diamond MD Primary Care Provider + Encounter Details Date Type Department Care Team Description 05/12/2010 Hospital Medical Records [address] [place] [address] RaúlRaquelSagar Social History Tobacco Use Types Packs/Day [...] filedocumented in this encounter Care Teams Supervisor Gate Services Relationship Specialty Start Date End Date Nikki Alcantar MD [address] [place] [address] PCP - General 06/26/05 03/04/17 Michelle Norris MD [address] [place] [address] PCP - General Internal Medicine 03/05/17 03/16/21 [facility], Pcp [address] [place] [address] PCP - General Internal Medicine 03/17/21 05/04/21 Michelle Norris MD [address] [place] [address] [place] [address] PCP - General Internal Medicine 05/05/21 09/13/22 Rosetta Diamond MD [address] [place], [place] [phone] PCP - General Internal Medicine 09/14/22 documented as of this encounter
--- OUTSIDE RECORDS SUMMARY | 2025-02-03 19:11 | XMS_ITS | Encounter Summary ---
Author Organization [facility] Address [address] [place] [address] Care Team Providers Care Speech Scientist Name Role Phone Nikki Alcantar MD Primary Care Provider [phone] Michelle Norris MD Primary Care Provider Unavail [facility] Primary Care Provider [facility] Michelle Norris MD Primary Care Provider Unavail [facility] Rosetta Diamond MD Primary Care Provider + Encounter Details Date Type Department Care Team Description 04/22/2016 Hospital Medical Records [address] [place] [address] Rod Mccoy MD Social History Tobacco Use [...] on filedocumented in this encounter Care Teams Speech Scientist Relationship Specialty Start Date End Date Nikki Alcantar MD [address] [place] [address] PCP - General 06/26/05 03/04/17 Michelle Norris MD [address] [place] [address] PCP - General Internal Medicine 03/05/17 03/16/21 [facility] [address] [place] [address] PCP - General Internal Medicine 03/17/21 05/04/21 Michelle Norris MD [address] [place] [address] PCP - General Internal Medicine 05/05/21 09/13/22 Rosetta Diamond MD [address] [place] [address] PCP - General Internal Medicine 09/14/22 documented as of this encounter
--- OUTSIDE RECORDS SUMMARY | 2025-02-03 19:11 | XMS_ITS | Encounter Summary ---
Author Organization [facility] Address [address] [place] [address] Care Team Providers Care Urology Physician Name Role Phone Nikki Alcantar MD Primary Care Provider Michelle Norris MD Primary Care Provider Unavail [facility] Primary Care Provider [facility] Michelle Norris MD Primary Care Provider Unavail [facility] Rosetta Diamond MD Primary Care Provider + Encounter Details Date Type Department Care Team Description 05/09/2016 Hospital Medical Records [address] [place] [address] Marlen Grande Social History Tobacco Use Types [...] on filedocumented in this encounter Care Teams Urology Physician Relationship Specialty Start Date End Date Nikki Alcantar MD [address] [place] [address] PCP - General 06/26/05 03/04/17 Michelle Norris MD [address] [place] [address] PCP - General Internal Medicine 03/05/17 03/16/21 [facility], Pcp [address] [place] [address] PCP - General Internal Medicine 03/17/21 05/04/21 Michelle Norris MD [address] [place] [address] PCP - General Internal Medicine 05/05/21 09/13/22 Rosetta Diamond MD [address] [place] [address] PCP - General Internal Medicine 09/14/22 documented as of this encounter
--- OUTSIDE RECORDS SUMMARY | 2025-02-03 19:12 | XMS_ITS | Encounter Summary ---
Author Organization [facility] Address [address] [place] [address] Care Team Providers Care Mastercam Programmer Name Role Phone Nikki Alcantar MD Primary Care Provider [phone] Michelle Norris MD Primary Care Provider Unavail [facility] Primary Care Provider [facility] Michelle Norris MD Primary Care Provider Unavail [facility] Rosetta Diamond MD Primary Care Provider + Encounter Details Date Type Department Care Team Description 12/13/2012 Hospital Medical Records [address] [place] [address] Marlen Grande Social History Tobacco Use Types [...] on filedocumented in this encounter Care Teams Mastercam Programmer Relationship Specialty Start Date End Date Nkiki Alcantar MD [address] [place] [address] PCP - General 06/26/05 03/04/17 Michelle Norris MD [address] [place] [address] PCP - General Internal Medicine 03/05/17 03/16/21 [facility], Pcp [address] [place] [address] PCP - General Internal Medicine 03/17/21 05/04/21 Michelle Norris MD [address] [place] [address] PCP - General Internal Medicine 05/05/21 09/13/22 Rosetta Diamond MD [address] [place] [address] PCP - General Internal Medicine 09/14/22 documented as of this encounter
--- OUTSIDE RECORDS SUMMARY | 2025-02-03 19:12 | XMS_ITS | Encounter Summary ---
Author Organization [facility] Address [address] [place] [address] Care Team Providers Care Lithographic Photographer Name Role Phone Nikki Alcantar MD Primary Care Provider Michelle Norris MD Primary Care Provider Unavail [facility] Primary Care Provider [facility] Michelle Norris MD Primary Care Provider Unavail [facility] Rosetta Diamond MD Primary Care Provider + Encounter Details Date Type Department Care Team Description 11/14/2016 Hospital Medical Records [address] [place] [address] Marlen Grande Social History Tobacco Use Types [...] on filedocumented in this encounter Care Teams Lithographic Photographer Relationship Specialty Start Date End Date Nikki Alcantar MD [address] [place] [address] PCP - General 06/26/05 03/04/17 Michelle Norris MD [address] [place] [address] PCP - General Internal Medicine 03/05/17 03/16/21 [facility], Pcp [address] [place] [address] PCP - General Internal Medicine 03/17/21 05/04/21 Michelle Norris MD [address] [place] [address] PCP - General Internal Medicine 05/05/21 09/13/22 Rosetta Diamond MD [address] [place] [address] PCP - General Internal Medicine 09/14/22 documented as of this encounter
--- OUTSIDE RECORDS SUMMARY | 2025-02-03 19:12 | XMS_ITS | Encounter Summary ---
Author Organization [facility] Address [address] [place] [address] Care Team Providers Care Voucher Examiner Name Role Phone Nikki Alcantar MD Primary Care Provider [phone] Michelle Norris MD Primary Care Provider Unavail [facility] Primary Care Provider [facility] Michelle Norris MD Primary Care Provider Unavail [facility] Rosetta Diamond MD Primary Care Provider + Encounter Details Date Type Department Care Team Description 05/07/2009 Hospital Medical Records [address] [place] [address] Rosana Gonzalez MD Social History Tobacco Use [...] on filedocumented in this encounter Care Teams Voucher Examiner Relationship Specialty Start Date End Date Nikki Alcantar MD [address] [place] [address] PCP - General 06/26/05 03/04/17 Michelle Norris MD [address] [place] [address] PCP - General Internal Medicine 03/05/17 03/16/21 [facility], Pcp [address] [place] [address] PCP - General Internal Medicine 03/17/21 05/04/21 Michelle Norris MD [address] [place] [address] [place] [address] PCP - General Internal Medicine 05/05/21 09/13/22 Rosetta Diamond MD [address] [place], [place] [phone] PCP - General Internal Medicine 09/14/22 documented as of this encounter
--- OUTSIDE RECORDS SUMMARY | 2025-02-03 19:12 | XMS_ITS | Encounter Summary ---
Author Organization [facility] Address [address] [place] [address] Care Team Providers Care Wood Processing Worker Name Role Phone Nikki Alcantar MD Primary Care Provider [phone] Michelle Norris MD Primary Care Provider Unavail able [facility] Primary Care Provider [facility] Michelle Norris MD Primary Care Provider Unavail able Rosetta Diamond MD Primary Care Provider + Reason for Visit * Reason Onset Date Comments refill request 01/25/2017 Encounter Details Date Type Department Care Team Description 01/25/2017 Refill Adult Medicine [address] [phone] Nikki Alcantar MD [address] [place] [address] [phone] refill request Social History Tobacco Use Types [...] / Plan[place] / Product Type: MEDICARE [id number] documented in this encounter Plan of Treatment Not on file documented as of this encounter Visit Diagnoses Not on filedocumented in this encounter Care Teams Wood Processing Worker Relationship Specialty Start Date End Date Nikki Alcantar MD [address] [place] [address] PCP - General 06/26/05 03/04/17 Michelle Norris MD [address] [place] [address] PCP - General Internal Medicine 03/05/17 03/16/21 [place] [address] PCP - General Internal Medicine 03/17/21 05/04/21 Michelle Norris MD [address] [place] [address] PCP - General Internal Medicine 05/05/21 09/13/22 Rosetta Diamond MD [address] [place] [address] PCP - General Internal Medicine 09/14/22 documented as of this encounter
--- OUTSIDE RECORDS SUMMARY | 2025-02-03 19:12 | XMS_ITS | Encounter Summary ---
Author Organization [facility] Address [address] [place] [address] Care Team Providers Care Air Conditioning Unit Tester Name Role Phone Nikki Alcantar MD Primary Care Provider [phone] Michelle Norris MD Primary Care Provider Unavail able [facility] Primary Care Provider [facility] Michelle Norris MD Primary Care Provider Unavail able Rosetta Diamond MD Primary Care Provider + Reason for Visit * Reason Onset Date Comments Call From Md Office 02/27/2017 Encounter Details Date Type Department Care Team Description 02/27/2017 Telephone Adult Medicine [address] [phone] Nikki Alcantar MD [address] [place] [address] [phone] Call From Md Office Social History Tobacco [...] - 02/27/2017 9:12 AM EDT Ros from [facility] calling. She would like Dr. Alcantar to know that Lucita is being seen there for mental health issues. She does not need a call back. documented in this encounter Plan of Treatment Not on file documented as of this encounter Visit Diagnoses Not on filedocumented in this encounter Care Teams Air Conditioning Unit Tester Relationship Specialty Start Date End Date Nikki Alcantar MD [address] [place] [address] PCP - General 06/26/05 03/04/17 Michelle Norris MD [address] [place] [address] PCP - General Internal Medicine 03/05/17 03/16/21 [place] [address] PCP - General Internal Medicine 03/17/21 05/04/21 Michelle Norris MD [address] [place] [address] PCP - General Internal Medicine 05/05/21 09/13/22 Rosetta Diamond MD [address] [place] [address] PCP - General Internal Medicine 09/14/22 documented as of this encounter
--- OUTSIDE RECORDS SUMMARY | 2025-02-03 19:12 | XMS_ITS | Encounter Summary ---
Author Organization [facility] Address [address] [place] [address] Care Team Providers Care Trailer Steerer Name Role Phone Michelle Norris MD Primary Care Provider Unavail able [facility] Primary [facility] Michelle Lagos MD Primary Care Provider Unavail able Rosetta Diamond MD Primary Care Provider + Reason for Visit * Reason Onset Date Comments refill request 11/12/2019 Encounter Details Date Type Department Care Team Description 11/12/2019 Refill Adult Medicine [address] [address] Michelle Norris MD refill request Social History [...] encounter Miscellaneous Notes * Telephone Encounter - Denys Ramos C.M.A. - 11/12/2019 10:59 AM EST Shanae 11/25/18 Appt 11/14/19 * Telephone Encounter - Radha Robles - 11/12/2019 9:49 AM EST Patient would like script to be: E-PRESCRIBED/FAXED TO PHARMACY WHEN WAS THE PATIENT'S LAST APPOINTMENT IN ADULT MEDICINE? 09/24/19 WHEN WAS THE LAST TIME THE PATIENT SAW THEIR PCP? 09/03/19 Does patient have an upcoming appointment? Yes 11/14/2019 (THE MEDICATION REQUESTED IS ON THE MED [...] insurance carrier is: [place] / Plan: [place]ICARE-[employer] / Product Type: MEDICARE [id number] documented in this encounter Plan of Treatment Not on file documented as of this encounter Visit Diagnoses Not on filedocumented in this encounter Care Teams Trailer Steerer Relationship Specialty Start Date End Date Michelle Norris MD PCP - General Internal Medicine 03/05/17 03/16/21 [facility] PCP - General Internal Medicine 03/17/21 05/04/21 Michelle Norris MD PCP - General Internal Medicine 05/05/21 09/13/22 Rosetta Diamond MD [address] [place] [address] PCP - General Internal Medicine 09/14/22 documented as of this encounter
--- OUTSIDE RECORDS SUMMARY | 2025-02-03 19:12 | XMS_ITS | Encounter Summary ---
Author Organization [facility] Address [address] [place] [address] Care Team Providers Care Guest Services Associate Name Role Phone Nikki Alcantar MD Primary Care Provider [phone] Michelle Norris MD Primary Care Provider Unavail able [facility] Primary Care [facility] Michelle Norris MD Primary Care Provider Unavail able Rosetta Diamond MD Primary Care Provider + Reason for Visit * Reason Onset Date Comments Call From Hospital 10/04/2016 Encounter Details Date Type Department Care Team Description 10/04/2016 Telephone Adult Medicine [address] [phone] Nikki Alcantar MD [address] [place] [address] [phone] Call From Hospital Social History Tobacco Use [...] - 10/04/2016 9:12 AM EST Pat [facility] calling to let us know [facility] documented in this encounter Plan of Treatment Not on file documented as of this encounter Visit Diagnoses Not on filedocumented in this encounter Care Teams Guest Services Associate Relationship Specialty Start Date End Date Nikki Alcantar MD [address] [place] [address] PCP - General 06/26/05 03/04/17 Michelle Norris MD [address] [place] [address] PCP - General Internal Medicine 03/05/17 03/16/21 [place] [phone] PCP - General Internal Medicine 03/17/21 05/04/21 Michelle Norris MD [address] [place] [address] PCP - General Internal Medicine 05/05/21 09/13/22 Rosetta Diamond MD [address] [place], [place] [phone] PCP - General Internal Medicine 09/14/22 documented as of this encounter
--- OUTSIDE RECORDS SUMMARY | 2025-02-03 19:12 | XMS_ITS | Encounter Summary ---
Author Organization [facility] Address [address] [place] [address] Care Team Providers Care Senior Design Engineering Specialist Name Role Phone Michelle Norris MD Primary Care Provider Unavail able [facility], Pcp Primary [facility] Michelle Lagos MD Primary Care Provider Unavail able Rosetta Diamond MD Primary Care Provider + Reason for Visit * Reason Onset Date Comments Faxed Order 11/12/2019 Encounter Details Date Type Department Care Team Description 11/12/2019 Telephone Adult [address] [address] Michelle Norris MD Faxed Order Social History [...] 10:37 AM EST Faxed orders received from [facility], please sign and fax back to [phone]. documented in this encounter Plan of Treatment Not on file documented as of this encounter Visit Diagnoses Not on filedocumented in this encounter Care Teams Senior Design Engineering Specialist Relationship Specialty Start Date End Date Michelle Norris MD PCP - General Internal Medicine 03/05/17 03/16/21 [facility], Pcp PCP - General Internal Medicine 03/17/21 05/04/21 Michelle Norris MD PCP - General Internal Medicine 05/05/21 09/13/22 Rosetta Diamond MD [address] [place] [address] PCP - General Internal Medicine 09/14/22 documented as of this encounter
--- OUTSIDE RECORDS SUMMARY | 2025-02-03 19:12 | XMS_ITS | Encounter Summary ---
Author Organization [facility] Address [address] [place] [address] Care Team Providers Care Slag Dumper Name Role Phone Nikki Alcantar MD Primary Care Provider [phone] Michelle Norris MD Primary Care Provider Unavail [facility] Primary Care Provider [facility] Michelle Norris MD Primary Care Provider Unavail [facility] Rosetta Diamond MD Primary Care Provider + Encounter Details Date Type Department Care Team Description 05/14/2009 Hospital Medical Records [address] [place] [address] Subhash Mcdaniel Social History Tobacco Use Types [...] on filedocumented in this encounter Care Teams Slag Dumper Relationship Specialty Start Date End Date Nikki Alcantar MD [address] [place] [address] PCP - General 06/26/05 03/04/17 Michelle Norris MD [address] [place] [address] PCP - General Internal Medicine 03/05/17 03/16/21 [facility] Pcp [address] [place] [address] PCP - General Internal Medicine 03/17/21 05/04/21 Michelle Norris MD [address] [place] [address] PCP - General Internal Medicine 05/05/21 09/13/22 Rosetta Diamond MD [address] [place] [address] PCP - General Internal Medicine 09/14/22 documented as of this encounter
--- OUTSIDE RECORDS SUMMARY | 2025-02-03 19:12 | XMS_ITS | Encounter Summary ---
Author Organization [facility] Address [address] [place] [address] Care Team Providers Care Adjuster Leader Name Role Phone Nikki Alcantar MD Primary Care Provider [phone] Michelle Norris MD Primary Care Provider Unavail [facility] Primary Care Provider [facility] Michelle Norris MD Primary Care Provider Unavail [facility] Rosetta Diamond MD Primary Care Provider + Encounter Details Date Type Department Care Team Description 05/22/2009 Hospital Medical Records [address] [place] [id number] Shelly Espana MD Social History Tobacco Use [...] on filedocumented in this encounter Care Teams Adjuster Leader Relationship Specialty Start Date End Date Nikki Alcantar MD [address] [place] [id number] PCP - General 06/26/05 03/04/17 Michelle Norris MD [address] [place] [address] PCP - General Internal Medicine 03/05/17 03/16/21 [facility], Pcp [address] [place] [address] PCP - General Internal Medicine 03/17/21 05/04/21 Michelle Norris MD [address] [place] [address] [place] [address] PCP - General Internal Medicine 05/05/21 09/13/22 Rosetta Diamond MD [address] [place], [place] [phone] PCP - General Internal Medicine 09/14/22 documented as of this encounter
--- OUTSIDE RECORDS SUMMARY | 2025-02-03 19:12 | XMS_ITS | Encounter Summary ---
Author Organization [facility] Address [address] [place] [address] Care Team Providers Care Street Light Cleaner Name Role Phone Nikki Alcantar MD Primary Care Provider [phone] Michelle Norris MD Primary Care Provider Unavail able [facility] Primary Care Provider [facility] Michelle Norris MD Primary Care Provider Unavail able Rosetta Diamond MD Primary Care Provider + Reason for Visit * Reason Onset Date Comments Faxed Order 09/05/2016 Encounter Details Date Type Department Care Team Description 09/05/2016 Telephone Adult Medicine [address] [phone] Nikki Alcantar MD [address] [place] [address] [phone] Faxed Order Social History Tobacco Use Types [...] Juan returning call for wound care orders [phone] * Telephone Encounter - Isaac Harvey - 09/05/2016 2:25 PM EST Medical resources faxed supplimental orders for signature documented in this encounter Plan of Treatment Not on file documented as of this encounter Visit Diagnoses Not on filedocumented in this encounter Care Teams Street Light Cleaner Relationship Specialty Start Date End Date Nikki Alcantar MD [address] [place] [address] PCP - General 06/26/05 03/04/17 Michelle Norris MD [address] [place] [address] PCP - General Internal Medicine 03/05/17 03/16/21 [place] [address] PCP - General Internal Medicine 03/17/21 05/04/21 Michelle Norris MD [address] [place], [place] [phone] PCP - General Internal Medicine 05/05/21 09/13/22 Rosetta Diamond MD [address] [place] [address] PCP - General Internal Medicine 09/14/22 documented as of this encounter
--- OUTSIDE RECORDS SUMMARY | 2025-02-03 19:12 | XMS_ITS | Encounter Summary ---
Author Organization [facility] Address [address] [place] [address] Care Team Providers Care Plunket Nurse Name Role Phone Nikki Kumar MD Primary Care Provider [phone] Michelle Norris MD Primary Care Provider [facility]avail [facility] Michelle Norris MD Primary Care Provider Unavail able Rosetta Diamond MD Primary Care Provider + Reason for Visit * Reason Onset Date Comments Faxed Order 09/22/2016 Encounter Details Date Type Department Care Team Description 09/22/2016 Telephone Adult Medicine [address] [phone] Nikki Kumar MD [address] [place] [address] [phone] Faxed Order Social History Tobacco Use Types [...] on filedocumented in this encounter Care Teams Plunket Nurse Relationship Specialty Start Date End Date Nikki Kumar MD [address] [place] [address] PCP - General 06/26/05 03/04/17 Michelle Norris MD [address] [place] [address] PCP - General Internal Medicine 03/05/17 03/16/21 [place] [address] PCP - General Internal Medicine 03/17/21 05/04/21 Michelle Norris MD [address] [place] [address] PCP - General Internal Medicine 05/05/21 09/13/22 Rosetta Diamond MD [address] [place] [address] PCP - General Internal Medicine 09/14/22 documented as of this encounter
--- OUTSIDE RECORDS SUMMARY | 2025-02-03 19:12 | XMS_ITS | Encounter Summary ---
Author Organization [facility] Address [address] [place] [address] Care Team Providers Care Joint Filler Name Role Phone Nikki Alcantar MD Primary Care Provider [phone] Michelle Norris MD Primary Care Provider Unavail [facility] Primary Care Provider [facility] Michelle Norris MD Primary Care Provider Unavail [facility] Rosetta Diamond MD Primary Care Provider + Encounter Details Date Type Department Care Team Description 01/22/2013 Night Triage Doc Medical Records [address] [place] [id number] Abstract, Provider Social History Tobacco Use Types [...] on filedocumented in this encounter Care Teams Joint Filler Relationship Specialty Start Date End Date Nikki Alcantar MD [address] [place] [address] PCP - General 06/26/05 03/04/17 Michelle Norris MD [address] [place] [address] PCP - General Internal Medicine 03/05/17 03/16/21 [facility], Pcp [address] [place] [address] PCP - General Internal Medicine 03/17/21 05/04/21 Michelle Norris MD [address] [place], [place] [phone] PCP - General Internal Medicine 05/05/21 09/13/22 Rosetta Diamond MD [address] [place] [address] PCP - General Internal Medicine 09/14/22 documented as of this encounter
--- OUTSIDE RECORDS SUMMARY | 2025-02-03 19:12 | XMS_ITS | Encounter Summary ---
Author Organization [facility] Address [address] [place] [address] Care Team Providers Care Missile And Missile Checkout Technician Name Role Phone Nikki Alcantar MD Primary Care Provider [phone] Michelle Norris MD Primary Care Provider Unavail [facility] Primary Care Provider [facility] Michelle Norris MD Primary Care Provider Unavail [facility] Rosetta Diamond MD Primary Care Provider + Encounter Details Date Type Department Care Team Description 11/11/2016 Hospital Medical Records [address] [place] [id number] Lucita Eileenelizabeth Social History Tobacco Use Types [...] on filedocumented in this encounter Care Teams Missile And Missile Checkout Technician Relationship Specialty Start Date End Date Nikki Alcantar MD [address] [place] [address] PCP - General 06/26/05 03/04/17 Michelle Norris MD [address] [place] [address] PCP - General Internal Medicine 03/05/17 03/16/21 [facility], Pcp [address] [place] [address] PCP - General Internal Medicine 03/17/21 05/04/21 Michelle Norris MD [address] [place] [address] [place] [address] PCP - General Internal Medicine 05/05/21 09/13/22 Rosetta Diamond MD [address] [place], [place] [phone] PCP - General Internal Medicine 09/14/22 documented as of this encounter
--- OUTSIDE RECORDS SUMMARY | 2025-02-03 19:12 | XMS_ITS | Encounter Summary ---
Author Organization [facility] Address [address] [place] [address] Care Team Providers Care Fire Systems Inspector Name Role Phone Nikki Kumar MD Primary Care Provider [phone] Michelle Norris MD Primary Care Provider Unavail [facility] [place] Primary Care Provider [facility] Michelle Norris MD Primary Care Provider Unavail able Rosetta Diamond MD Primary Care Provider + Reason for Visit * Reason Onset Date Comments Faxed Order 10/18/2016 Encounter Details Date Type Department Care Team Description 10/18/2016 Telephone Adult Medicine [address] [phone] Nikki Kumar MD [address] [place] [address] [phone] Faxed Order Social History Tobacco Use Types [...] filedocumented in this encounter Care Teams Fire Systems Inspector Relationship Specialty Start Date End Date Nikki Kumar MD [address] [place] [address] PCP - General 06/26/05 03/04/17 Michelle Norris MD [address] [place] [address] PCP - General Internal Medicine 03/05/17 03/16/21 [place] [address] PCP - General Internal Medicine 03/17/21 05/04/21 Michelle Norris MD [address] [place] [address] PCP - General Internal Medicine 05/05/21 09/13/22 Rosetta Diamond MD [address] [place] [address] PCP - General Internal Medicine 09/14/22 documented as of this encounter
--- OUTSIDE RECORDS SUMMARY | 2025-02-03 19:12 | XMS_ITS | Encounter Summary ---
Author Organization [facility] Address [address] [place] [address] Care Team Providers Care Poured Concrete Wall Technician Name Role Phone Nikki Alcantar MD Primary Care Provider [phone] Michelle Norris MD Primary Care Provider Unavail [facility] Primary Care Provider [facility] Michelle Norris MD Primary Care Provider Unavail [facility] Rosetta Diamond MD Primary Care Provider + Encounter Details Date Type Department Care Team Description 09/22/2016 Hospital Medical Records [address] [place] [phone] Angelique Moore Social History Tobacco Use Types [...] on filedocumented in this encounter Care Teams Poured Concrete Wall Technician Relationship Specialty Start Date End Date Nkiki Alcantar MD [address] [place] [address] PCP - General 06/26/05 03/04/17 Michelle Norris MD [address] [place] [address] PCP - General Internal Medicine 03/05/17 03/16/21 [facility] [address] [place] [address] PCP - General Internal Medicine 03/17/21 05/04/21 Michelle Norris MD [address] [place] [address] [place] [address] PCP - General Internal Medicine 05/05/21 09/13/22 Rosetta Diamond MD [address] [place], [place] [phone] PCP - General Internal Medicine 09/14/22 documented as of this encounter
--- OUTSIDE RECORDS SUMMARY | 2025-02-03 19:12 | XMS_ITS | Encounter Summary ---
Author Organization [facility] Address [address] [place] [address] Care Team Providers Care Technical Rep Name Role Phone Nikki Alcantar MD Primary Care Provider [phone] Michelle Norris MD Primary Care Provider Unavail [facility] Primary Care Provider [facility] Michelle Norris MD Primary Care Provider Unavail [facility] Rosetta Diamond MD Primary Care Provider + Encounter Details Date Type Department Care Team Description 05/21/2009 Hospital Medical Records [address] [place] [id number] Zay Puri Social History Tobacco Use Types [...] on filedocumented in this encounter Care Teams Technical Rep Relationship Specialty Start Date End Date Nikki Alcantar MD [address] [place] [address] PCP - General 06/26/05 03/04/17 Michelle Norris MD [address] [place] [address] PCP - General Internal Medicine 03/05/17 03/16/21 [facility], Pcp [address] [place] [address] PCP - General Internal Medicine 03/17/21 05/04/21 Michelle Norris MD [address] [place] [address] [place] [address] PCP - General Internal Medicine 05/05/21 09/13/22 Rosetta Diamond MD [address] [place], [place] [phone] PCP - General Internal Medicine 09/14/22 documented as of this encounter
--- OUTSIDE RECORDS SUMMARY | 2025-02-03 19:12 | XMS_ITS | Encounter Summary ---
Author Organization [facility] Address [address] [place] [address] Care Team Providers Care Flanger Name Role Phone Michelle Norris MD Primary Care Provider [facility] MD Primary Care Provider Unavail able Rosetta Diamond MD Primary Care Provider + Encounter Details Date Type Department Care Team Description 03/08/2017 Hospital Medical Records [address] [place] [phone] Sourav Lucas Social History Tobacco Use Types [...] on filedocumented in this encounter Care Teams Flanger Relationship Specialty Start Date End Date Michelle Norris MD PCP - General Internal Medicine 03/05/17 03/16/21 [facility], Pcp PCP - General Internal Medicine 03/17/21 05/04/21 Michelle Norrsi MD PCP - General Internal Medicine 05/05/21 09/13/22 Rosetta Diamond MD [address] [place] [address] PCP - General Internal Medicine 09/14/22 documented as of this encounter
--- NOTE | 2025-02-03 19:16 | ED.SKABFB ---
HPI - Skin/Abscess/Foreign Bdy General Chief complaint: Skin/Abscess/Foreign Body Stated complaint: from grp home, rash on abd Time Seen by Provider: 02/03/25 18:28 History of Present Illness HPI narrative: Patient is a 49-year-old female with a history of hallucination, PTSD, diabetes presented today with having a rash on the need her breasts and also in her abdomen between the skin folds. The appears moist. It is very itchy. Patient is from home. Came to the ED for help. No fever no systemic complaints. No suicidal ideation no hallucinations Related Data Home Medications ?Medication ?Instructions ?Recorded ?Confirmed albuterol sulfate 90 mcg/actuation 2 puff inhalation Q6H PRN Wheezing 06/24/24 01/10/25 aerosol inhaler amlodipine 5 mg tablet 5 mg PO DAILY 06/24/24 01/10/25 clozapine 100 mg tablet 200 mg PO BEDTIME 06/24/24 01/10/25 fluoxetine 40 mg capsule 80 mg PO DAILY 06/24/24 01/10/25 prazosin 2 mg capsule 4 mg PO BEDTIME 06/24/24 01/10/25 metformin 500 mg tablet 500 mg PO BID 07/15/24 01/10/25 nicotine 21 mg/24 hr daily 1 patch topical DAILY PRN Nicotine 11/04/24 01/10/25 transdermal patch Cravings fluticasone 250 mcg-salmeterol 50 1 ea inhalation BID 01/10/25 01/10/25 mcg/dose blistr powdr for inhalation haloperidol 10 mg tablet 10 mg PO BEDTIME PRN hallucinations 01/10/25 01/10/25 haloperidol 5 mg tablet 5 mg PO TID 01/10/25 01/10/25 Previous Rx's ?Medication ?Instructions ?Recorded nystatin-triamcinolone 100,000 1 appl topical BID #30 grams 12/26/24 unit/g-0.1 % topical cream nystatin-triamcinolone 100,000 1 appl topical BID yeast infection 02/03/25 unit/g-0.1 % topical cream #60 grams Allergies Allergy/AdvReac Type Severity Reaction Status Date / Time azithromycin [AZITHROMYCIN] Allergy Severe Rash Verified 02/03/25 18:18 Fish Containing Products Allergy Severe Anaphylaxis Verified 02/03/25 18:18 codeine [Codeine] Allergy Intermediate Rash Verified 02/03/25 18:18 Penicillins Allergy Intermediate Rash Verified 02/03/25 18:18 prednisone [Prednisone] Allergy Intermediate Rash Verified 02/03/25 18:18 Sulfa (Sulfonamide Allergy Intermediate Rash Verified 02/03/25 18:18 Antibiotics) [Sulfa (Sulfonamides)] ziprasidone [From Geodon] Allergy Intermediate dysuria, Verified 02/03/25 18:18 rash lithium Allergy Unknown Rash Verified 02/03/25 18:18 Review of Systems Review of Systems: No fever no chills PMFSH Past Medical History Attestation statement: The following information was validated with the patient. Medical History Asthma Suicidal ideation MDD (major depressive disorder), recurrent episode, severe Chest pain Acute anxiety COVID-19 Full body hives Major depression Dizziness Suicide attempt UTI (urinary tract infection) Acetaminophen overdose COVID History of attempted suicide History of non-suicidal self-harm Hypomagnesemia Suicide attempt Suicide attempt by acetaminophen overdose Acetaminophen overdose Depression Diabetes type 2, controlled Borderline personality disorder PTSD (post-traumatic stress disorder) Overdose GERD (gastroesophageal reflux disease) Mood disorder Hyperlipidemia Bronchitis Social History Social History Household Members: Other Household Members Other:: [facility] members Housing: Other Housing Other:: [facility] Do you presently have visiting nurse or other home services: No Unable to assess alcohol history related to: Unknown Alcohol intake: never Comment: sitter in room Patient Tobacco Use Status: Current everyday Tobacco user Tobacco use type: Cigarette Cigarette Packs Per Day: 1 Cigarettes Per Day: 20.0 Years Smoked: 10 Smoked in Last 30 Days: No e-Cigarette/Vaping Use: Never Used Second Hand Smoke Exposure: No Use of substances other than those prescribed or required for medical reasons: No Substance Use Type: Caffiene Advance Directives: No Advance Directives Information Provided: No Do you have a plan to hurt others: No Plan Patient : No service: No Current occupational status: unemployed and disabled Sexual orientation: Straight/Heterosexual Physical Exam Vital Signs: Vital Signs: Last Vital Signs Temp 98.2 F 02/03/25 18:13 Pulse 117 H 02/03/25 18:13 Resp 20 02/03/25 18:13 BP 120/78 02/03/25 18:13 Pulse Ox 95 02/03/25 18:13 O2 Del Method Room Air 02/03/25 18:13 BMI result Body Mass Index 44.1 Appearance: Alert. Oriented X3. No acute distress. Eyes: Pupils equal, round and reactive to light. ENT: Pharynx normal. Neck: Normal inspection. Neck supple. No lymph nodes noted. No crepitus CVS: Normal heart rate and rhythm. Pulses normal. Normal S1 and S2 Respiratory: No respiratory distress. Breath sounds normal. No Wheezing. No rales Examination of the area underneath the breasts showed a moist red erythematous lesion covering the skin folds bilaterally. Also between the pannus of the abdomen there is areas of redness and itchiness. Abdomen: Soft and nontender. No rigidity. No distention. good BS x4 Skin: Skin warm and dry. Normal skin color. Normal skin turgor. Extremities: No lower extremity edema. Neurovascular intact to all extremities. No Lacerations. No Rash Neuro: Oriented X 3. No motor deficit. No sensory deficit. Moving all extermities. No slurred speech Medical Decision Making Medical Decision Making [facility] Narrative: Patient's labs are unremarkable. Glucose is less than 200. Patient's symptoms consistent with having a skin yeast infection will start patient on nystatin and triamcinolone. Have patient follow-up on an outpatient basis keep the area clean. In stable condition. Differential Diagnosis Differential Diagnoses: The differential diagnosis associated with the presentation includes Yeast infection Admission/Observation Consideration of admission/observation: Escalation of care including admission/observation considered No need to admit symptoms localized Lab Data [facility] Lab Attestation statement: I reviewed the patient's lab results. 02/03/25 18:35 02/03/25 18:35 Labs: Lab Results 02/03/25 Range/Units 18:35 WBC 10.3 (4.8-10.8) X10*3/uL RBC 4.10 L (4.20-5.50) X10*6/uL Hgb 12.7 (12.0-16.0) g/dl Hct 38.1 (37.0-47.0) % MCV 92.9 (80.0-98.0) fL MCH 31.0 (27.0-33.0) pg MCHC 33.3 (31.0-35.0) g/dl RDW 12.6 (11.0-16.0) % Plt Count 314 (160-400) X10*3/uL MPV 9.2 L (9.4-12.3) fL Immature Gran % (Auto) 0.7 H (0.0-0.4) % Neut % (Auto) 73.0 (45-73) % Lymph % (Auto) 14.7 L (20-40) % Thomas % (Auto) 7.7 (2-11) % Eos % (Auto) 3.5 (0-4) % Baso % (Auto) 0.4 (0-2) % Lymph # (Auto) 1.5 (1.2-4.9) X10*3/uL Thomas # (Auto) 0.8 (0.1-1.2) X10*3/uL Eos # (Auto) 0.4 (0.0-0.4) X10*3/uL Baso # (Auto) 0.0 (0.0-0.2) X10*3/uL Abs Immat Gran (auto) 0.07 H (0.00-0.03) X10*3/uL Absolute Neuts (auto) 7.6 (2.0-8.3) x10*3/uL Absolute Nucleated RBC 0.000 (0.0-0.012) X10*3/uL Nucleated RBC % (auto) 0.0 (0.0-0.2) /100WBC Sodium 141 (135-145) mmol/L Potassium 3.8 (3.3-5.1) mmol/L Chloride 107 (96-108) mmol/L Carbon Dioxide 22 (22-29) mmol/L Anion Gap 16 (12-20) BUN 8 L (9-16) mg/dL Creatinine 0.68 (0.5-1.4) mg/dL Estim Creat Clear Calc 128.2 Estimated GFR > 60 Random Glucose 144 H (60-115) mg/dL Calcium 9.0 (8.4-10.2) mg/dL Total Bilirubin 0.2 (0.0-1.0) mg/dL AST 29 (5-31) U/L ALT 33 H (0-31) U/L C-Reactive Protein 0.55 H (< or = 0.50) mg/dL Total Protein 6.9 (6.5-8.0) g/dL Albumin 4.1 (3.5-5.0) g/dL External Record Review External record reviewed: Inpatient record Chronic Conditions Patient?s care impacted by: Diabetes PTSD, hallucinations Social Determinants Patient?s care significantly limited by Social Determinants of Health including: Problems related to primary support group and Unemployment Discharge Plan Discharge Clinical Impression: Yeast dermatitis Patient Disposition: Home, Self-Care Instructions: Skin Yeast Infection (ED) Prescriptions: New nystatin-triamcinolone 100,000-0.1 unit/g-% cream 1 appl topical BID Qty: 60 0RF No Action fluoxetine 40 mg capsule 80 mg PO DAILY clozapine 100 mg tablet 200 mg PO BEDTIME amlodipine 5 mg tablet 5 mg PO DAILY albuterol sulfate 90 mcg/actuation HFA aerosol inhaler 2 puff inhalation Q6H PRN (Reason: Wheezing) prazosin 2 mg capsule 4 mg PO BEDTIME metformin 500 mg tablet 500 mg PO BID nicotine 21 mg/24 hr patch 24 hour 1 patch topical DAILY PRN (Reason: Nicotine Cravings) nystatin-triamcinolone 100,000-0.1 unit/g-% cream 1 appl topical BID Qty: 30 0RF haloperidol 5 mg tablet 5 mg PO TID haloperidol 10 mg tablet 10 mg PO BEDTIME PRN (Reason: hallucinations) fluticasone propion-salmeterol 250-50 mcg/dose blister with device 1 ea inhalation BID Print Language: Latvian
[2025-02-03 19:31] LABS: Alkaline Phosphatase 147 U/L (39-117)
[2025-02-03 19:49] LABS: Erythrocyte Sedimentation Rate 14 MM/HR (0-20)
[2025-02-03 19:54] VITALS: BP 120/78; PULSE 117; RESP 20; TEMP 36.8; O2SAT 95
== END 2025-02-03 19:55 | disposition home or self-care (01) ==
PROVIDERS: Emergency Provider Emergency Medicine Emergency Medical Services
DX: L30.8 Other specified dermatitis (principal); Z79.899 Other long term (current) drug therapy; F17.210 Nicotine dependence, cigarettes, uncomplicated
CPT/HCPCS: 36415; 80053; 85025; 85652; 86140; 99283; 99284

== ENCOUNTER 2025-02-08 21:28 | Emergency (ER) | payer MEDICARE, MEDICAID, SELFPAY ==
--- NOTE | 2025-02-08 | ECG_ITS ---
Test Reason : VCHEST PAIN Blood Pressure : */* mmHG Vent. Rate : 114 BPM Atrial Rate : 114 BPM P-R Int : 172 ms QRS Dur : 84 ms QT Int : 334 ms P-R-T Axes : 51 24 48 degrees QTcB Int : 460 ms Sinus tachycardia Otherwise normal ECG When compared with ECG of 28-Dec-2024 22:41, No significant change was found Referred By: Generic ED Physician Electronically Signed By: Fabricio Kay
--- NOTE | ~2025-02-08 | XR_ITS ---
CLINICAL HISTORY: sob 1 view chest x-ray Comparison: CR/CO - XR CHEST 2V - 12/28/24 23:36 EDT Findings: Low lung volumes. No focal infiltrate. No large effusion. No pneumothorax. Normal size heart. No acute fracture. IMPRESSION: Low lung volumes. This document has been electronically signed by: Alexx Kennedy MD on 02/09/2025 02:02:15
[2025-02-08 21:36] VITALS: BP 180/100; PULSE 120; O2SAT 95
[2025-02-08 21:40] VITALS: BP 172/87; PULSE 118; RESP 16; TEMP 37.4; O2SAT 95
[2025-02-08 21:42] VITALS: BMI 36.6
[2025-02-08 22:25] LABS: Basophils Percent Auto 0.5 % (0-2); Eosinophils Absolute Auto 0.3 X10*3/uL (0.0-0.4); Eosinophils Percent Auto 3.8 % (0-4); Hematocrit 35.2 % (37.0-47.0); Hemoglobin 11.8 g/dl (12.0-16.0); Imm Gran Abs Auto 0.06 X10*3/uL (0.00-0.03); Imm Gran Pct Auto 0.8 % (0.0-0.4); Lymphocytes Absolute Auto 1.6 X10*3/uL (1.2-4.9); Lymphocytes Percent Auto 20.2 % (20-40); MANUAL DIFF FLAG NO; Mean Corpuscular HGB Conc 33.5 g/dl (31.0-35.0); Mean Corpuscular Hemoglobin 31.3 pg (27.0-33.0); Mean Corpuscular Volume 93.4 fL (80.0-98.0); Monocytes Absolute Auto 0.6 X10*3/uL (0.1-1.2); Monocytes Percent Auto 7.3 % (2-11); Neutrophils Absolute Auto 5.2 x10*3/uL (2.0-8.3); Neutrophils Percent Auto 67.4 % (45-73); Platelet Count 283 X10*3/uL (160-400); Red Blood Count 3.77 X10*6/uL (4.20-5.50); Red Cell Distribution Width 12.7 % (11.0-16.0); White Blood Count 7.7 X10*3/uL (4.8-10.8)
[2025-02-08 22:42] LABS: Alanine Aminotransferase 31 U/L (0-31); Alkaline Phosphatase 139 U/L (39-117); Anion Gap 16 (12-20); Aspartate Amino Transferase 53 U/L (5-31); Bilirubin Total 0.1 mg/dL (0.0-1.0); Blood Urea Nitrogen 10 mg/dL (9-16); Calcium 8.7 mg/dL (8.4-10.2); Carbon Dioxide 24 mmol/L (22-29); Chloride 108 mmol/L (96-108); Creatinine Clr Calc Pharmacy 121.4; Estimated Glomerular Filt Rate > 60; Glucose Random 135 mg/dL (60-115); Potassium 3.5 mmol/L (3.3-5.1); Sodium 144 mmol/L (135-145); Total Protein 6.5 g/dL (6.5-8.0)
[2025-02-08 22:46] LABS: Troponin-I High Sensitivity < 2.7 ng/L (<3.5-17.0)
--- NOTE | 2025-02-09 00:57 | ED_ITS ---
HPI - Chest Pain General Chief Complaint: Chest Pain Stated Complaint: Chest pain after smoking cigarettes Time Seen by Provider: 02/08/25 21:51 Source: patient Limitations: no limitations History of Present Illness ED Provider: Carolina Gonzalez PA-C HPI narrative: 49 y/o F with hx of PTSD, depression, GERD, type 2 diabetes borderline personality disorder, who is well known to the emergency department, presents from her detention for evaluation of chest pain. Patient states she smoked 2 packs of cigarettes prior to the onset of her discomfort. She felt dizzy and short of breath at that time. Related Data Home Medications ?Medication ?Instructions ?Recorded ?Confirmed albuterol sulfate 90 mcg/actuation 2 puff inhalation Q6H PRN Wheezing 06/24/24 01/10/25 aerosol inhaler amlodipine 5 mg tablet 5 mg PO DAILY 06/24/24 01/10/25 clozapine 100 mg tablet 200 mg PO BEDTIME 06/24/24 01/10/25 fluoxetine 40 mg capsule 80 mg PO DAILY 06/24/24 01/10/25 prazosin 2 mg capsule 4 mg PO BEDTIME 06/24/24 01/10/25 metformin 500 mg tablet 500 mg PO BID 07/15/24 01/10/25 nicotine 21 mg/24 hr daily 1 patch topical DAILY PRN Nicotine 11/04/24 01/10/25 transdermal patch Cravings fluticasone 250 mcg-salmeterol 50 1 ea inhalation BID 01/10/25 01/10/25 mcg/dose blistr powdr for inhalation haloperidol 10 mg tablet 10 mg PO BEDTIME PRN hallucinations 01/10/25 01/10/25 haloperidol 5 mg tablet 5 mg PO TID 01/10/25 01/10/25 Previous Rx's ?Medication ?Instructions ?Recorded nystatin-triamcinolone 100,000 1 appl topical BID #30 grams 12/26/24 unit/g-0.1 % topical cream nystatin-triamcinolone 100,000 1 appl topical BID yeast infection 02/03/25 unit/g-0.1 % topical cream #60 grams Allergies Allergy/AdvReac Type Severity Reaction Status Date / Time azithromycin [AZITHROMYCIN] Allergy Severe Rash Verified 02/08/25 21:43 Fish Containing Products Allergy Severe Anaphylaxis Verified 02/08/25 21:43 codeine [Codeine] Allergy Intermediate Rash Verified 02/08/25 21:43 Penicillins Allergy Intermediate Rash Verified 02/08/25 21:43 prednisone [Prednisone] Allergy Intermediate Rash Verified 02/08/25 21:43 Sulfa (Sulfonamide Allergy Intermediate Rash Verified 02/08/25 21:43 Antibiotics) [Sulfa (Sulfonamides)] ziprasidone [From Geodon] Allergy Intermediate dysuria, Verified 02/08/25 21:43 rash lithium Allergy Unknown Rash Verified 02/08/25 21:43 Review of Systems 2 Review of Systems: Yes all other systems are reviewed and are negative Constitutional: Constitutional: Denies fatigue and Denies fever(s) ENT: Reports dizziness Cardiovascular: Cardiovascular: Reports chest pain and Reports dyspnea Respiratory: Respiratory: Denies cough and Reports dyspnea Neurologic: Reports dizziness Endocrine: Endocrine: Denies fatigue PMFSH Past Medical History Attestation statement: The following information was validated with the patient. Medical History Asthma Suicidal ideation MDD (major depressive disorder), recurrent episode, severe Chest pain Acute anxiety COVID-19 Full body hives Major depression Dizziness Suicide attempt UTI (urinary tract infection) Acetaminophen overdose COVID History of attempted suicide History of non-suicidal self-harm Hypomagnesemia Suicide attempt Suicide attempt by acetaminophen overdose Acetaminophen overdose Depression Diabetes type 2, controlled Borderline personality disorder PTSD (post-traumatic stress disorder) Overdose GERD (gastroesophageal reflux disease) Mood disorder Hyperlipidemia Bronchitis Social History Social History Household Members: Other Household Members Other:: detention members Housing: Other Housing Other:: detention Do you presently have visiting nurse or other home services: No Unable to assess alcohol history related to: Unknown Alcohol intake: never Comment: sitter in room Patient Tobacco Use Status: Current everyday Tobacco user Tobacco use type: Cigarette Cigarette Packs Per Day: 1 Cigarettes Per Day: 20.0 Years Smoked: 10 Smoked in Last 30 Days: Yes e-Cigarette/Vaping Use: Never Used Second Hand Smoke Exposure: No Use of substances other than those prescribed or required for medical reasons: No Substance Use Type: Caffiene Advance Directives: No Advance Directives Information Provided: Yes service: No Current occupational status: unemployed and disabled Sexual orientation: Straight/Heterosexual Physical Exam 2 Vital Signs: Vital Signs: Last Vital Signs Temp 97.8 F 02/09/25 02:00 Pulse 93 04/28/25 02:00 Resp 17 02/09/25 02:00 BP 144/84 H 02/09/25 02:00 Pulse Ox 95 02/09/25 02:00 O2 Del Method Room Air 02/09/25 02:00 BMI result Body Mass Index 36.6 Const: Other: Alert Orientation/consciousness: patient oriented x3 Resp: Effort & Inspection: normal respiratory effort Cardio: Other: Normal peripheral perfusion Skin: Other: Warm dry no rash Neuro: General: patient oriented x3, gait normal, no focal motor deficits and CN's II-XI intact bilaterally Psych: Other: Cooperative Medical Decision Making Medical Decision Making MDM Narrative: 49 y/o F with hx of PTSD, depression, GERD, type 2 diabetes borderline personality disorder, who is well known to the emergency department, presents from her detention for evaluation of chest pain. Patient states she smoked 2 packs of cigarettes prior to the onset of her discomfort. She felt dizzy and short of breath at that time. Problem: Psychiatric illness, diabetes History: Per patient I have considered the following differential diagnoses: ACS, airway reactivity, stimulant overuse Plan: I do not believe this is ACS, the patient states she smoked too many cigarettes prior to the onset of in her discomfort. We will obtain screening labs including a cardiac enzymes EKG and chest x-ray. It would be expected that she will be dizzy and short of breath given the overuse of stimulants/tobacco I have independently reviewed the following tests: Labs: No leukocytosis, not anemic, no electrolyte abnormality noted, troponin negative EKG: Sinus tachycardia, rate of 114, no ischemic changes no ectopy QTC 460 Chest x-ray:Findings: Low lung volumes. No focal infiltrate. No large effusion. No pneumothorax. Normal size heart. No acute fracture. IMPRESSION: Low lung volumes. Lab Data 02/08/25 22:20 02/08/25 22:20 Labs: Lab Results 02/08/25 Range/Units 22:20 WBC 7.7 (4.8-10.8) X10*3/uL RBC 3.77 L (4.20-5.50) X10*6/uL Hgb 11.8 L (12.0-16.0) g/dl Hct 35.2 L (37.0-47.0) % MCV 93.4 (80.0-98.0) fL MCH 31.3 (27.0-33.0) pg MCHC 33.5 (31.0-35.0) g/dl RDW 12.7 (11.0-16.0) % Plt Count 283 (160-400) X10*3/uL MPV 9.0 L (9.4-12.3) fL Immature Gran % (Auto) 0.8 H (0.0-0.4) % Neut % (Auto) 67.4 (45-73) % Lymph % (Auto) 20.2 (20-40) % Boone % (Auto) 7.3 (2-11) % Eos % (Auto) 3.8 (0-4) % Baso % (Auto) 0.5 (0-2) % Lymph # (Auto) 1.6 (1.2-4.9) X10*3/uL Boone # (Auto) 0.6 (0.1-1.2) X10*3/uL Eos # (Auto) 0.3 (0.0-0.4) X10*3/uL Baso # (Auto) 0.0 (0.0-0.2) X10*3/uL Abs Immat Gran (auto) 0.06 H (0.00-0.03) X10*3/uL Absolute Neuts (auto) 5.2 (2.0-8.3) x10*3/uL Absolute Nucleated RBC 0.000 (0.0-0.012) X10*3/uL Nucleated RBC % (auto) 0.0 (0.0-0.2) /100WBC Sodium 144 (135-145) mmol/L Potassium 3.5 (3.3-5.1) mmol/L Chloride 108 (96-108) mmol/L Carbon Dioxide 24 (22-29) mmol/L Anion Gap 16 (12-20) BUN 10 (9-16) mg/dL Creatinine 0.67 (0.5-1.4) mg/dL Estim Creat Clear Calc 121.4 Estimated GFR > 60 Random Glucose 135 H (60-115) mg/dL Calcium 8.7 (8.4-10.2) mg/dL Total Bilirubin 0.1 (0.0-1.0) mg/dL AST 53 H (5-31) U/L ALT 31 (0-31) U/L Alkaline Phosphatase 139 H (39-117) U/L Troponin I High Sens < 2.7 (<3.5-17.0) ng/L Total Protein 6.5 (6.5-8.0) g/dL Albumin 4.0 (3.5-5.0) g/dL Discharge Plan Discharge Clinical Impression: Chest pain Patient Disposition: Home, Self-Care Instructions: Noncardiac Chest Pain (ED) Additional Instructions: All of your screening labs including a cardiac enzymes were normal. There were no concerning changes on the EKG in the chest x-ray is clear. Nicotine as a stimulant, it will cause dizziness if used an excess. Smoking we will cause shortness of breath and chest pain. You should not smoke in excess or at all. Prescriptions: No Action nystatin-triamcinolone 100,000-0.1 unit/g-% cream 1 appl topical BID Qty: 60 0RF fluoxetine 40 mg capsule 80 mg PO DAILY clozapine 100 mg tablet 200 mg PO BEDTIME amlodipine 5 mg tablet 5 mg PO DAILY albuterol sulfate 90 mcg/actuation HFA aerosol inhaler 2 puff inhalation Q6H PRN (Reason: Wheezing) prazosin 2 mg capsule 4 mg PO BEDTIME metformin 500 mg tablet 500 mg PO BID nicotine 21 mg/24 hr patch 24 hour 1 patch topical DAILY PRN (Reason: Nicotine Cravings) nystatin-triamcinolone 100,000-0.1 unit/g-% cream 1 appl topical BID Qty: 30 0RF haloperidol 5 mg tablet 5 mg PO TID haloperidol 10 mg tablet 10 mg PO BEDTIME PRN (Reason: hallucinations) fluticasone propion-salmeterol 250-50 mcg/dose blister with device 1 ea inhalation BID Print Language: [place]se
[2025-02-09 02:00] VITALS: BP 144/84; PULSE 93; RESP 17; TEMP 36.6; O2SAT 95
[2025-02-09 02:41] VITALS: BP 144/84; PULSE 93; RESP 17; TEMP 36.6; O2SAT 95
[2025-02-09 05:25] VITALS: RESP 16
== END 2025-02-09 06:23 | disposition home or self-care (01) ==
PROVIDERS: Emergency Provider Internal Medicine; PCP Nurse Practitioner Family
DX: R07.9 Chest pain, unspecified (principal); E11.9 Type 2 diabetes mellitus without complications; R42 Dizziness and giddiness; R06.02 Shortness of breath; Z79.899 Other long term (current) drug therapy
CPT/HCPCS: 36415; 71045; 80053; 84484; 85025; 93005; 99283; 99284

== ENCOUNTER → 2025-02-08 22:24 | Outpatient (BNV) | payer MEDICARE, MEDICAID, SELFPAY | PROVIDERS: Emergency Provider Internal Medicine; PCP Nurse Practitioner Family; Visit Provider Internal Medicine Cardiovascular Disease | DX: R00.0 Tachycardia, unspecified (principal) | CPT/HCPCS: 93010 ==

== ENCOUNTER → 2025-02-09 01:02 | Outpatient (BNV) | payer MEDICARE, MEDICAID, SELFPAY | PROVIDERS: Emergency Provider Internal Medicine; PCP Nurse Practitioner Family; Visit Provider Radiology Diagnostic Radiology | DX: J98.4 Other disorders of lung (principal) | CPT/HCPCS: 71045 ==

== ENCOUNTER 2025-02-25 15:13 | Outpatient (REF) | payer MEDICARE, MEDICAID, SELFPAY ==
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
[2025-02-25 15:30] LABS: MANUAL DIFF FLAG NO
[2025-02-25 15:37] LABS: Basophils Percent Auto 0.3 % (0-2); Eosinophils Absolute Auto 0.3 X10*3/uL (0.0-0.4); Hematocrit 37.8 % (37.0-47.0); Hemoglobin 12.4 g/dl (12.0-16.0); Imm Gran Abs Auto 0.06 X10*3/uL (0.00-0.03); Imm Gran Pct Auto 0.6 % (0.0-0.4); Lymphocytes Absolute Auto 1.5 X10*3/uL (1.2-4.9); Lymphocytes Percent Auto 15.1 % (20-40); Mean Corpuscular HGB Conc 32.8 g/dl (31.0-35.0); Mean Corpuscular Hemoglobin 30.4 pg (27.0-33.0); Mean Corpuscular Volume 92.6 fL (80.0-98.0); Mean Platelet Volume 8.9 fL (9.4-12.3); Monocytes Absolute Auto 0.8 X10*3/uL (0.1-1.2); Monocytes Percent Auto 8.6 % (2-11); Neutrophils Absolute Auto 6.9 x10*3/uL (2.0-8.3); Neutrophils Percent Auto 72.4 % (45-73); Platelet Count 297 X10*3/uL (160-400); Red Blood Count 4.08 X10*6/uL (4.20-5.50); Red Cell Distribution Width 12.5 % (11.0-16.0); White Blood Count 9.6 X10*3/uL (4.8-10.8)
== END 2025-02-25 15:14 | disposition home or self-care (01) ==
LOC: HO.LABR 15:13
PROVIDERS: PCP Nurse Practitioner Family
DX: Z79.899 Other long term (current) drug therapy (principal)
CPT/HCPCS: 36415; 85025

== ENCOUNTER 2025-03-03 03:15 | Emergency (ER) | payer MEDICARE, MEDICAID, SELFPAY ==
[2025-03-03 03:25] VITALS: BP 149/87; PULSE 110; RESP 18; TEMP 37.1; O2SAT 99; BMI 38.4
--- NOTE | 2025-03-03 03:27 | ED_ITS ---
HPI - General Adult General Chief complaint: Psychiatric Symptoms Stated complaint: SI/HEARING VOICES Time Seen by Provider: 03/03/25 03:27 History of Present Illness ED Provider: Paula KIRBY narrative: The patient is a 49-year-old woman with chronic mental illness who lives at a [facility]. She has a history of frequent ER visits. The patient says that she has been hearing voices for about 24 hours. She says the voices are making her feel like she should kill herself by cutting herself. She has not done anything to harm herself to this point. She denies homicidal ideation. No fever, sweats, chills. No other symptoms. Related Data Home Medications ?Medication ?Instructions ?Recorded ?Confirmed albuterol sulfate 90 mcg/actuation 2 puff inhalation Q6H PRN Wheezing 06/24/24 01/10/25 aerosol inhaler amlodipine 5 mg tablet 5 mg PO DAILY 06/24/24 01/10/25 clozapine 100 mg tablet 200 mg PO BEDTIME 06/24/24 01/10/25 fluoxetine 40 mg capsule 80 mg PO DAILY 06/24/24 01/10/25 prazosin 2 mg capsule 4 mg PO BEDTIME 06/24/24 01/10/25 metformin 500 mg tablet 500 mg PO BID 07/15/24 01/10/25 nicotine 21 mg/24 hr daily 1 patch topical DAILY PRN Nicotine 11/04/24 01/10/25 transdermal patch Cravings fluticasone 250 mcg-salmeterol 50 1 ea inhalation BID 01/10/25 01/10/25 mcg/dose blistr powdr for inhalation haloperidol 10 mg tablet 10 mg PO BEDTIME PRN hallucinations 01/10/25 01/10/25 haloperidol 5 mg tablet 5 mg PO TID 01/10/25 01/10/25 Previous Rx's ?Medication ?Instructions ?Recorded nystatin-triamcinolone 100,000 1 appl topical BID #30 grams 12/26/24 unit/g-0.1 % topical cream nystatin-triamcinolone 100,000 1 appl topical BID yeast infection 02/03/25 unit/g-0.1 % topical cream #60 grams Allergies Allergy/AdvReac Type Severity Reaction Status Date / Time azithromycin [AZITHROMYCIN] Allergy Severe Rash Verified 03/03/25 03:27 Fish Containing Products Allergy Severe Anaphylaxis Verified 03/03/25 03:27 codeine [Codeine] Allergy Intermediate Rash Verified 03/03/25 03:27 Penicillins Allergy Intermediate Rash Verified 03/03/25 03:27 prednisone [Prednisone] Allergy Intermediate Rash Verified 03/03/25 03:27 Sulfa (Sulfonamide Allergy Intermediate Rash Verified 03/03/25 03:27 Antibiotics) [Sulfa (Sulfonamides)] ziprasidone [From Geodon] Allergy Intermediate dysuria, Verified 03/03/25 03:27 rash lithium Allergy Unknown Rash Verified 03/03/25 03:27 Review of Systems 2 Review of Systems: Yes all other systems are reviewed and are negative [facility] Past Medical History Medical History Asthma Suicidal ideation MDD (major depressive disorder), recurrent episode, severe Chest pain Acute anxiety COVID-19 Full body hives Major depression Dizziness Suicide attempt UTI (urinary tract infection) Acetaminophen overdose COVID History of attempted suicide History of non-suicidal self-harm Hypomagnesemia Suicide attempt Suicide attempt by acetaminophen overdose Acetaminophen overdose Depression Diabetes type 2, controlled Borderline personality disorder PTSD (post-traumatic stress disorder) Overdose GERD (gastroesophageal reflux disease) Mood disorder Hyperlipidemia Bronchitis Social History Social History Household Members: Other Household Members Other:: [facility] members Housing: Other Housing Other:: [facility] Do you presently have visiting nurse or other home services: No Unable to assess alcohol history related to: Unknown Alcohol intake: never Comment: sitter in room Patient Tobacco Use Status: Current everyday Tobacco user Tobacco use type: Cigarette Cigarette Packs Per Day: 1 Cigarettes Per Day: 20.0 Years Smoked: 10 Smoked in Last 30 Days: Yes e-Cigarette/Vaping Use: Never Used Second Hand Smoke Exposure: No Use of substances other than those prescribed or required for medical reasons: No Substance Use Type: Caffiene Advance Directives: No Advance Directives Information Provided: Yes Do you have a plan to hurt others: No Plan Patient : No service: No Current occupational status: unemployed and disabled Sexual orientation: Straight/Heterosexual Physical Exam ED Vital Signs: Vital Signs - 24 hr 03/03/25 03:25 03/03/25 06:40 Temperature 98.7 F 97.8 F Pulse Rate 110 H 93 Respiratory Rate 18 16 Blood Pressure 149/87 H 136/83 Pulse Oximetry 99 98 Oxygen Delivery Method Room Air Room Air BMI result Body Mass Index 38.4 Const Other: The patient is a 49-year-old woman who was awake and alert. She has a somewhat flat affect. She does not appear in acute distress. HENMT Other: Face is symmetrical, mucous membranes moist Eyes General: appearance normal, both eyes and all related structures Neck Neck: Yes normal visual inspection and Yes full ROM Resp Effort & Inspection: normal respiratory effort Auscultation: clear to auscultation bilaterally Cardio Rate: regular rate Rhythm: regular rhythm Heart sounds: S1 normal heart sound present and S2 normal heart sound present GI Other: Abdomen is soft and nontender Skin Other: The patient has a numerable old scars on her forearms. No acute changes. Neuro Other: The patient is awake, alert, cooperative. Mental status is normal. Cranial nerves 2-12 are grossly intact. She moves her extremities normally and appropriately with normal strength and sensation and coordination. Gait is normal. She is neurologically intact. Extrem Other: No ankle edema, no calf swelling or tenderness, no asymmetry. Course Reevaluation(s) Reevaluation #1: 03/03/2025 DR. Allison's progress note: Will discontinue physician observation, care team input is appreciated, patient is AAO x3, VSS, no SI, no HI, no hallucination, patient [facility] to [facility] back to the [facility]. Time: 10:09 Medical Decision Making Medical Decision Making MDM Narrative: The patient is a chronically mentally ill 49-year-old with frequent ER visits. She comes to the emergency room tonight complaining of auditory hallucinations and thoughts of possible self-harm. Her labs are unremarkable. Her physical exam is reassuring. The patient is medically cleared to be seen by the care team and is medically cleared for disposition by [facility]. The patient will be placed in physician observation. Lab Data 03/03/25 04:39 03/03/25 04:39 Labs: Lab Results 03/03/25 Range/Units 04:39 WBC 7.3 (4.8-10.8) X10*3/uL RBC 4.02 L (4.20-5.50) X10*6/uL Hgb 12.4 (12.0-16.0) g/dl Hct 36.5 L (37.0-47.0) % MCV 90.8 (80.0-98.0) fL MCH 30.8 (27.0-33.0) pg MCHC 34.0 (31.0-35.0) g/dl RDW 12.5 (11.0-16.0) % Plt Count 266 (160-400) X10*3/uL MPV 8.8 L (9.4-12.3) fL Immature Gran % (Auto) 0.7 H (0.0-0.4) % Neut % (Auto) 63.0 (45-73) % Lymph % (Auto) 21.6 (20-40) % [place] % (Auto) 9.0 (2-11) % Eos % (Auto) 5.3 H (0-4) % Baso % (Auto) 0.4 (0-2) % Lymph # (Auto) 1.6 (1.2-4.9) X10*3/uL [place] # (Auto) 0.7 (0.1-1.2) X10*3/uL Eos # (Auto) 0.4 (0.0-0.4) X10*3/uL Baso # (Auto) 0.0 (0.0-0.2) X10*3/uL Abs Immat Gran (auto) 0.05 H (0.00-0.03) X10*3/uL Absolute Neuts (auto) 4.6 (2.0-8.3) x10*3/uL Absolute Nucleated RBC 0.000 (0.0-0.012) X10*3/uL Nucleated RBC % (auto) 0.0 (0.0-0.2) /100WBC Sodium 140 (135-145) mmol/L Potassium 3.3 (3.3-5.1) mmol/L Chloride 106 (96-108) mmol/L Carbon Dioxide 22 (22-29) mmol/L Anion Gap 15 (12-20) BUN 7 L (9-16) mg/dL Creatinine 0.67 (0.5-1.4) mg/dL Estim Creat Clear Calc 111.6 Estimated GFR > 60 Random Glucose 139 H (60-115) mg/dL Calcium 8.6 (8.4-10.2) mg/dL Beta HCG, Quant < 2 mIU/mL Ethyl Alcohol < 10 mg/dL Discharge Plan Discharge Clinical Impression: Auditory hallucinations Patient Disposition: Home, Self-Care Instructions: Hallucinations (ED) Prescriptions: No Action nystatin-triamcinolone 100,000-0.1 unit/g-% cream 1 appl topical BID Qty: 60 0RF fluoxetine 40 mg capsule 80 mg PO DAILY clozapine 100 mg tablet 200 mg PO BEDTIME amlodipine 5 mg tablet 5 mg PO DAILY albuterol sulfate 90 mcg/actuation HFA aerosol inhaler 2 puff inhalation Q6H PRN (Reason: Wheezing) prazosin 2 mg capsule 4 mg PO BEDTIME metformin 500 mg tablet 500 mg PO BID nicotine 21 mg/24 hr patch 24 hour 1 patch topical DAILY PRN (Reason: Nicotine Cravings) nystatin-triamcinolone 100,000-0.1 unit/g-% cream 1 appl topical BID Qty: 30 0RF haloperidol 5 mg tablet 5 mg PO TID haloperidol 10 mg tablet 10 mg PO BEDTIME PRN (Reason: hallucinations) fluticasone propion-salmeterol 250-50 mcg/dose blister with device 1 ea inhalation BID Interventions: [place]-Suicide Risk Severity Scale Last Done: 03/03/25 05:21 Print Language: Japanese
--- NOTE | 2025-03-03 03:42 | PC.NURSE ---
pt biba from [facility], a&ox4, respirations even and unlabored. pt reports onset of auditory hallucinations, reports they are telling her to end her life by cutting. pt reports she does have hx of self harm but reports she did not act on these actions. pt changed into green by security, belongings placed in reyna port. sitter at bedside.
--- NOTE | 2025-03-03 03:42 | MHC.EDTECH ---
DID CHANGEOVER WITH [employer]. PT IS WEARING DEPENDS. CHECKED WITH CHARGE TO MAKE SURE IT WAS OK SHE LEFT IT ON. HAD THE PT PULL IT DOWN AND MAKE SURE NOTHING WAS IN IT. PT BELONGINGS ARE IN THE [place] PORT SHELF 1
[2025-03-03 04:43] LABS: MANUAL DIFF FLAG NO
[2025-03-03 04:45] LABS: Basophils Percent Auto 0.4 % (0-2); Eosinophils Absolute Auto 0.4 X10*3/uL (0.0-0.4); Eosinophils Percent Auto 5.3 % (0-4); Hematocrit 36.5 % (37.0-47.0); Hemoglobin 12.4 g/dl (12.0-16.0); Imm Gran Abs Auto 0.05 X10*3/uL (0.00-0.03); Imm Gran Pct Auto 0.7 % (0.0-0.4); Lymphocytes Absolute Auto 1.6 X10*3/uL (1.2-4.9); Lymphocytes Percent Auto 21.6 % (20-40); Mean Corpuscular Hemoglobin 30.8 pg (27.0-33.0); Mean Corpuscular Volume 90.8 fL (80.0-98.0); Mean Platelet Volume 8.8 fL (9.4-12.3); Monocytes Absolute Auto 0.7 X10*3/uL (0.1-1.2); Neutrophils Absolute Auto 4.6 x10*3/uL (2.0-8.3); Platelet Count 266 X10*3/uL (160-400); Red Blood Count 4.02 X10*6/uL (4.20-5.50); Red Cell Distribution Width 12.5 % (11.0-16.0); White Blood Count 7.3 X10*3/uL (4.8-10.8)
[2025-03-03 05:01] LABS: Anion Gap 15 (12-20); Blood Urea Nitrogen 7 mg/dL (9-16); Calcium 8.6 mg/dL (8.4-10.2); Carbon Dioxide 22 mmol/L (22-29); Chloride 106 mmol/L (96-108); Creatinine Clr Calc Pharmacy 111.6; Estimated Glomerular Filt Rate > 60; Ethanol < 10 mg/dL; Glucose Random 139 mg/dL (60-115); Potassium 3.3 mmol/L (3.3-5.1); Sodium 140 mmol/L (135-145)
[2025-03-03 05:07] LABS: HCG Quantitative < 2 mIU/mL
[2025-03-03 06:40] VITALS: BP 136/83; PULSE 93; RESP 16; TEMP 36.6; O2SAT 98
--- NOTE | 2025-03-03 08:38 | PC.NURSE ---
patient continues to rest quietly on stretcher w/ no obvious signs/symptoms of distress noted. respirations even and unlabored. patient observer remains in place, awaiting care team
[2025-03-03 10:36] VITALS: BP 136/83; PULSE 93; RESP 16; TEMP 36.6; O2SAT 98
== END 2025-03-03 10:44 | disposition home or self-care (01) ==
PROVIDERS: Emergency Provider Emergency Medicine
DX: R44.0 Auditory hallucinations (principal); R45.851 Suicidal ideations; R10.2 Pelvic and perineal pain; F17.210 Nicotine dependence, cigarettes, uncomplicated; Z51.81 Encounter for therapeutic drug level monitoring; Z79.899 Other long term (current) drug therapy
CPT/HCPCS: 36415; 80048; 80307; 84702; 85025; 99284; S9485

== ENCOUNTER 2025-03-07 01:16 | Emergency (ER) | payer MEDICARE, MEDICAID, SELFPAY ==
--- NOTE | ~2025-03-07 | XR_ITS ---
CLINICAL HISTORY: fall 4 view right knee Comparison: CR/SR - XR KNEE RT 3V - 03/28/2024 11:43 PM EDT Findings: Bones intact. No dislocations. No significant loss of joint space, osteophytes, or erosions. No joint effusion. No radiopaque foreign body. IMPRESSION: 1. No acute findings. This document has been electronically signed by: Mohsen Bonilla MD on 03/07/2025 09:53:54
--- NOTE | ~2025-03-07 | XR_ITS ---
CLINICAL HISTORY: cough 2 view chest x-ray Comparison: CR - XR CHEST 1V - 02/09/25 01:09 EDT Findings: No consolidation or effusion. Heart size is normal. No acute fracture. IMPRESSION: 1. No acute findings. This document has been electronically signed by: Mohsen Bonilla MD on 03/07/2025 09:49:02
[2025-03-07 01:48] VITALS: BP 105/77; PULSE 111; RESP 18; TEMP 36.7; O2SAT 96
[2025-03-07 01:59] VITALS: BMI 39.5
--- NOTE | 2025-03-07 02:09 | PC.NURSE ---
upon additional assessment by this loan underwriter patient states that she is hearing voices telling her to kill herself, report given to WALKER Mann. plan to transfer patient to pod
--- OUTSIDE RECORDS SUMMARY | 2025-03-07 02:10 | XMS_ITS | Encounter Summary ---
Author Organization [facility] Address [address] [place] [address] Care Team Providers Care Or First Assist Registered Nurse Name Role Phone Michelle Norris MD Primary Care Provider [facility], Pcp [facility] MD Primary Care Provider Un[facility] Rosetta Diamond MD Primary Care Provider + Encounter Details Date Type Department Care Team Description 02/03/2019 Hospital Medical Records [address] [place] [id number] Social History Tobacco Use Types Packs/Day Years [...] on filedocumented in this encounter Care Teams Or First Assist Registered Nurse Relationship Specialty Start Date End Date Michelle Norris MD PCP - General Internal Medicine 03/05/17 03/16/21 [facility], Pcp PCP - General Internal Medicine 03/17/21 05/04/21 Michelle Norris MD PCP - General Internal Medicine 05/05/21 09/13/22 Rosetta Diamond MD [address] [place] [id number] PCP - General Internal Medicine 09/14/22 documented as of this encounter
--- NOTE | 2025-03-07 05:01 | PC.NURSE ---
late entry, patiet transitioned to behavioral pod, awaiting communication w provider in regards to lab work prior to care team assessment, patient maintains safe behavior
--- NOTE | 2025-03-07 07:16 | PC.NURSE ---
ASSUMED CARE OF PT AT APPROXIMATELY 0645. PT APPEARS TO BE SLEEPING COMFORTABLY. NO APPARENT DISTRESS AT THIS TIME.
[2025-03-07 07:45] VITALS: BP 159/92; PULSE 99; RESP 18; TEMP 36.6; O2SAT 95
--- NOTE | 2025-03-07 09:25 | ED.GENADULT ---
HPI - General Adult General Chief complaint: Psychiatric Symptoms Stated complaint: FALL/ SCRAPED KNEE Time Seen by Provider: 03/07/25 08:07 Source: patient, EMS, RN notes reviewed and old records reviewed Mode of arrival: EMS History of Present Illness ED Provider: Jaimie Carmona PA-C HPI narrative: 49-year-old female with a past medical history of asthma, MDD, depression, diabetes, PTSD, GERD, mood disorder, HLD, bronchitis, presenting to the ED via EMS complaining of right knee pain s/p mechanical fall last night. States had coughing fit and during coughing fit felt lightheaded/ dizzy and fell. States landed on right knee and did hit head, denies anticoagulation use, LOC, headache, neck or back pain. Denies injury to other area or lightheadedness/ dizziness at present. Denies CP/SOB, abdominal pain, nausea change or loss, SI/HI. Admits she is hearing voices and requesting to speak to CARE team Related Data Home Medications ?Medication ?Instructions ?Recorded ?Confirmed albuterol sulfate 90 mcg/actuation 2 puff inhalation Q6H PRN Wheezing 06/24/24 01/10/25 aerosol inhaler amlodipine 5 mg tablet 5 mg PO DAILY 06/24/24 01/10/25 clozapine 100 mg tablet 200 mg PO BEDTIME 06/24/24 01/10/25 fluoxetine 40 mg capsule 80 mg PO DAILY 06/24/24 01/10/25 prazosin 2 mg capsule 4 mg PO BEDTIME 06/24/24 01/10/25 metformin 500 mg tablet 500 mg PO BID 07/15/24 01/10/25 nicotine 21 mg/24 hr daily 1 patch topical DAILY PRN Nicotine 11/04/24 01/10/25 transdermal patch Cravings fluticasone 250 mcg-salmeterol 50 1 ea inhalation BID 01/10/25 01/10/25 mcg/dose blistr powdr for inhalation haloperidol 10 mg tablet 10 mg PO BEDTIME PRN hallucinations 01/10/25 01/10/25 haloperidol 5 mg tablet 5 mg PO TID 01/10/25 01/10/25 Previous Rx's ?Medication ?Instructions ?Recorded nystatin-triamcinolone 100,000 1 appl topical BID #30 grams 12/26/24 unit/g-0.1 % topical cream nystatin-triamcinolone 100,000 1 appl topical BID yeast infection 02/03/25 unit/g-0.1 % topical cream #60 grams Allergies Allergy/AdvReac Type Severity Reaction Status Date / Time azithromycin [AZITHROMYCIN] Allergy Severe Rash Verified 03/07/25 02:03 Fish Containing Products Allergy Severe Anaphylaxis Verified 03/07/25 02:03 codeine [Codeine] Allergy Intermediate Rash Verified 03/07/25 02:03 Penicillins Allergy Intermediate Rash Verified 03/07/25 02:03 prednisone [Prednisone] Allergy Intermediate Rash Verified 03/07/25 02:03 Sulfa (Sulfonamide Allergy Intermediate Rash Verified 03/07/25 02:03 Antibiotics) [Sulfa (Sulfonamides)] ziprasidone [From Geodon] Allergy Intermediate dysuria, Verified 03/07/25 02:03 rash lithium Allergy Unknown Rash Verified 03/07/25 02:03 Review of Systems Review of Systems: Yes all other systems are reviewed and are negative Constitutional: Constitutional: Reports as per HPI Neurologic: Denies Abnormal speech present PMFSH Past Medical History Attestation statement: The following information was validated with the patient. Source: old records reviewed Medical History Asthma Suicidal ideation MDD (major depressive disorder), recurrent episode, severe Chest pain Acute anxiety COVID-19 Full body hives Major depression Dizziness Suicide attempt UTI (urinary tract infection) Acetaminophen overdose COVID History of attempted suicide History of non-suicidal self-harm Hypomagnesemia Suicide attempt Suicide attempt by acetaminophen overdose Acetaminophen overdose Depression Diabetes type 2, controlled Borderline personality disorder PTSD (post-traumatic stress disorder) Overdose GERD (gastroesophageal reflux disease) Mood disorder Hyperlipidemia Bronchitis Social History Social History Household Members: Other Household Members Other:: [facility] members Housing: Other Housing Other:: [facility] Do you presently have visiting nurse or other home services: No Unable to assess alcohol history related to: Unknown Alcohol intake: never Comment: sitter in room Patient Tobacco Use Status: Current everyday Tobacco user Tobacco use type: Cigarette Cigarette Packs Per Day: 1 Cigarettes Per Day: 20.0 Years Smoked: 10 Smoked in Last 30 Days: No e-Cigarette/Vaping Use: Never Used Second Hand Smoke Exposure: No Substance Use Type: Caffiene Advance Directives: No Advance Directives Information Provided: No Do you have a plan to hurt others: No Plan Patient : No service: No Current occupational status: unemployed and disabled Sexual orientation: Straight/Heterosexual Physical Exam ED Vital Signs: Vital Signs - 24 hr 03/07/25 01:48 03/07/25 07:45 Temperature 98.0 F 97.8 F Pulse Rate 111 H 99 Respiratory Rate 18 18 Blood Pressure 105/77 159/92 H Pulse Oximetry 96 95 Oxygen Delivery Method Room Air Room Air BMI result Body Mass Index 39.5 Const General: cooperative, healthy appearing and no acute distress Orientation/consciousness: patient oriented x3 Limitations: no limitations HENMT Head: Yes normal to inspection, Yes atraumatic, No Harper's sign and No raccoon eyes Ears: hearing grossly normal bilaterally General nose exam: Normal external nose present Face and sinus: Yes normal facial exam Mouth: Normal oral and palatal mucosa present Throat: Yes posterior oropharynx normal Eyes General: appearance normal, both eyes and all related structures EOM: EOMs intact bilaterally Neck Neck: Yes normal visual inspection and Yes no meningeal signs Resp Effort & Inspection: normal respiratory effort and no respiratory distress Auscultation: clear to auscultation bilaterally, no crackles, no rhonchi and no wheezes Cardio Rate: regular rate Heart sounds: S1 normal heart sound present and S2 normal heart sound present GI Inspection: Yes normal to inspection Palpation (GI): Soft to palpation, nontender, no guarding and not rigid Back/Spine/Pelvis Other: No midline cervical/thoracic/lumbar spinous tenderness/step-off or deformity Skin Rashes: no rashes Wounds: no wounds Neuro General: patient oriented x3, gait normal, tone normal, moves all extremities, no meningeal signs, no focal motor deficits and CN's II-XI intact bilaterally Cranial nerves: Yes CN's II-XII intact bilaterally Speech: No Abnormal speech present Gait exam (Neuro): Normal gait present Motor exam (neuro): 5/5 motor strength present throughout Extrem Other: right knee with superficial abrasion noted with scabbing overlying. Mildly tender to palpation. No erythema/ ecchymosis or crepitus. FROM intact without discomfort. Neurovascularly intact distally Psych Thought content: suicidality, no homicidality and Hallucination(s) present auditory Medical Decision Making Medical Decision Making MDM Narrative: 49-year-old female with a past medical history of asthma, MDD, depression, diabetes, PTSD, GERD, mood disorder, HLD, bronchitis, presenting to the ED via EMS complaining of right knee pain s/p mechanical fall last night. Admits she is hearing voices and requesting to speak to CARE team. on exam vital signs stable, NAD, nontoxic appearing, physical exam as noted above. concern for knee contusion, lower suspicion for fracture. concern for closed head injury, low suspicion for ICH/ SAH. [place] head CT rule negative. Lower suspicion for ACS/ PE or metabolic abnormality. +Auditory hallucinations. Concern for viral illness. Rule out pneumonia plan: CXR, knee x-ray, CARE team consult Please refer to course for remaining clinical decision making, interpretation of labs/imaging results, and discussions with consultants and/or family members. 10:30I, Dr. Seth have take over the care of this patient, I reviewed pertinent blood work and imaging, re-evaluated the patient when appropriate. She will be discharged Differential Diagnosis Differential Diagnoses: The differential diagnosis associated with the presentation includes As above Admission/Observation Consideration of admission/observation: Escalation of care including admission/observation considered Consult Healthcare Provider Management of the patient was discussed with: Behavioral Health Provider Lab Data MDM Lab Attestation statement: I reviewed the patient's lab results. Labs: Lab Results 03/07/25 Range/Units 09:09 Influenza Type A (PCR) NEGATIVE (Negative) Influenza Type B (PCR) NEGATIVE (Negative) RSV RNA Qual (PCR) NEGATIVE (Negative) SARS-CoV-2 RNA (RT-PCR) NEGATIVE (Negative) Independent Interpretation I performed an independent interpretation of an: Plain X-Ray Radiology Impression Discussion of test interpretation with radiology: I have reviewed the radiologist's reading. Independent Historian Clinical information obtained from an independent historian. History obtained from or confirmed by: EMS External Record Review External record reviewed: Inpatient record, Office record, Outpatient record, Prior outpatient labs, Prior outpatient radiology, Primary care record and Outside ED record Tests considered The following testing was considered but not selected: As above Prescription Management I considered prescription management with: Other Chronic Conditions Patient?s care impacted by: Diabetes and Other Social Determinants Patient?s care significantly limited by Social Determinants of Health including: Inadequate housing, Problems related to primary support group, Unemployment and Other Social Determinant of Health Discharge Plan Discharge Clinical Impression: Acute pain of right knee, Auditory hallucination, Cough Patient Disposition: Home, Self-Care Additional Instructions: Evaluated with multiple concerns, you have had chest x-ray, knee x-ray as reported a fall, he had a viral swab, blood work EKG all of which has been reassuring he also team, you have been cleared for discharge follow up with the PCP taking medications as prescribed on a regular basis, for your knee pain you can ice the area take Tylenol as needed for pain Prescriptions: No Action nystatin-triamcinolone 100,000-0.1 unit/g-% cream 1 appl topical BID Qty: 60 0RF fluoxetine 40 mg capsule 80 mg PO DAILY clozapine 100 mg tablet 200 mg PO BEDTIME amlodipine 5 mg tablet 5 mg PO DAILY albuterol sulfate 90 mcg/actuation HFA aerosol inhaler 2 puff inhalation Q6H PRN (Reason: Wheezing) prazosin 2 mg capsule 4 mg PO BEDTIME metformin 500 mg tablet 500 mg PO BID nicotine 21 mg/24 hr patch 24 hour 1 patch topical DAILY PRN (Reason: Nicotine Cravings) nystatin-triamcinolone 100,000-0.1 unit/g-% cream 1 appl topical BID Qty: 30 0RF haloperidol 5 mg tablet 5 mg PO TID haloperidol 10 mg tablet 10 mg PO BEDTIME PRN (Reason: hallucinations) fluticasone propion-salmeterol 250-50 mcg/dose blister with device 1 ea inhalation BID Interventions: [place]-Suicide Risk Severity Scale Last Done: 03/07/25 02:48 Print Language: Icelandic
[2025-03-07 09:55] LABS: Influenza A PCR NEGATIVE (Negative); Influenza B PCR NEGATIVE (Negative); Resp Syncy Virus RNA Qual PCR NEGATIVE (Negative); SARS COV2 PCR INHOUSE NEGATIVE (Negative)
[2025-03-07 10:39] VITALS: BP 159/92; PULSE 99; RESP 18; TEMP 36.6; O2SAT 95
== END 2025-03-07 11:01 | disposition home or self-care (01) ==
PROVIDERS: Physician Assistant; Emergency Provider Emergency Medicine
DX: S80.211A Abrasion, right knee, initial encounter (principal); M25.561 Pain in right knee; R44.0 Auditory hallucinations; R05.9 Cough, unspecified; R42 Dizziness and giddiness; R51.9 Headache, unspecified; F17.210 Nicotine dependence, cigarettes, uncomplicated; X58.XXXA Exposure to other specified factors, initial encounter; Y93.9 Activity, unspecified; Y92.9 Unspecified place or not applicable; Y99.8 Other external cause status; Z03.818 Encounter for observation for suspected exposure to other biological agents ruled out; Z79.899 Other long term (current) drug therapy
CPT/HCPCS: 0241U; 71046; 73562; 99284; S9485

== ENCOUNTER 2025-03-11 01:07 | Emergency (ER) | payer MEDICARE, MEDICAID, SELFPAY ==
[2025-03-11 01:20] VITALS: BP 136/86; PULSE 120; RESP 16; TEMP 36.8; O2SAT 97; BMI 39.0
--- NOTE | 2025-03-11 01:23 | PC.NURSE ---
ASSUMED CARE OF PT AT APPROXIMATELY 0118. NO ACUTE MEDICAL CONCERNS. NO APPARENT DISTRESS. PT REPORTS [facility] DUE TO HEARING VOICES THROUGHOUT THE DAY. PT IS RESTING QUIETLY, RECEIVED A SNACK AND DRINK. AWAITING CARE TEAM ASSESSMENT.
[2025-03-11 01:32] VITALS: BP 136/86; PULSE 120; TEMP 36.8; O2SAT 97
--- NOTE | 2025-03-11 02:12 | MHC.EDTECH ---
pt difficult stick. t/w only able to obtain 1 out of 3 labs ordered. RN AWARE.
[2025-03-11 02:35] LABS: Alanine Aminotransferase 24 U/L (0-31); Albumin Level 4.2 g/dL (3.5-5.0); Alkaline Phosphatase 157 U/L (39-117); Anion Gap 15 (12-20); Aspartate Amino Transferase 21 U/L (5-31); Bilirubin Total 0.2 mg/dL (0.0-1.0); Blood Urea Nitrogen 15 mg/dL (9-16); Carbon Dioxide 23 mmol/L (22-29); Chloride 103 mmol/L (96-108); Creatinine Clr Calc Pharmacy 109.7; Estimated Glomerular Filt Rate > 60; Ethanol < 10 mg/dL; Glucose Random 230 mg/dL (60-115); Potassium 3.1 mmol/L (3.3-5.1); Sodium 138 mmol/L (135-145); Total Protein 6.4 g/dL (6.5-8.0)
[2025-03-11 02:49] LABS: Basophils Percent Auto 0.5 % (0-2); Eosinophils Absolute Auto 0.3 X10*3/uL (0.0-0.4); Eosinophils Percent Auto 4.3 % (0-4); Hematocrit 36.7 % (37.0-47.0); Hemoglobin 12.5 g/dl (12.0-16.0); Imm Gran Abs Auto 0.04 X10*3/uL (0.00-0.03); Imm Gran Pct Auto 0.5 % (0.0-0.4); Lymphocytes Absolute Auto 1.8 X10*3/uL (1.2-4.9); Lymphocytes Percent Auto 23.7 % (20-40); MANUAL DIFF FLAG NO; Mean Corpuscular HGB Conc 34.1 g/dl (31.0-35.0); Mean Corpuscular Hemoglobin 31.1 pg (27.0-33.0); Mean Corpuscular Volume 91.3 fL (80.0-98.0); Mean Platelet Volume 9.1 fL (9.4-12.3); Monocytes Absolute Auto 0.7 X10*3/uL (0.1-1.2); Monocytes Percent Auto 9.6 % (2-11); Neutrophils Absolute Auto 4.7 x10*3/uL (2.0-8.3); Neutrophils Percent Auto 61.4 % (45-73); Platelet Count 260 X10*3/uL (160-400); Red Blood Count 4.02 X10*6/uL (4.20-5.50); Red Cell Distribution Width 12.5 % (11.0-16.0); White Blood Count 7.7 X10*3/uL (4.8-10.8)
--- NOTE | 2025-03-11 07:43 | ED.PSYCH ---
HPI - Psych General Chief Complaint: Psychiatric Symptoms Stated Complaint: Hearing voices, SI statements Time Seen by Provider: 03/11/25 07:26 Source: patient and EMS Mode of arrival: EMS Limitations: no limitations History of Present Illness ED Provider: LILIA KIRBY Narrative: 49 yo female with chronic SI, BPD, bronchitis here with c/o hearing voices and not feeling like herself. No SI/HI. She is anxious and depressed. She has no other medical complaints. She has a chronically high HR. MD complaint: anxiety and hallucinations Onset (ago): day(s) Duration: intermittent History of same: Yes Relieving factors: none Exacerbating factors: other Context: significant life stressor Associated psychiatric symptoms: depression and auditory hallucinations Treatments prior to arrival: none If self harm: admits thoughts of self harm Related Data Home Medications ?Medication ?Instructions ?Recorded ?Confirmed albuterol sulfate 90 mcg/actuation 2 puff inhalation Q6H PRN Wheezing 06/24/24 03/11/25 aerosol inhaler amlodipine 5 mg tablet 5 mg PO DAILY 06/24/24 03/11/25 clozapine 100 mg tablet 200 mg PO BEDTIME 06/24/24 03/11/25 fluoxetine 40 mg capsule 80 mg PO DAILY 06/24/24 03/11/25 prazosin 2 mg capsule 4 mg PO BEDTIME 06/24/24 03/11/25 metformin 500 mg tablet 500 mg PO BID 07/15/24 03/11/25 nicotine 21 mg/24 hr daily 1 patch topical DAILY PRN Nicotine 11/04/24 03/11/25 transdermal patch Cravings fluticasone 250 mcg-salmeterol 50 1 ea inhalation BID 01/10/25 03/11/25 mcg/dose blistr powdr for inhalation haloperidol 10 mg tablet 10 mg PO BEDTIME PRN hallucinations 01/10/25 03/11/25 haloperidol 5 mg tablet 5 mg PO TID 01/10/25 03/11/25 Previous Rx's ?Medication ?Instructions ?Recorded nystatin-triamcinolone 100,000 1 appl topical BID #30 grams 12/26/24 unit/g-0.1 % topical cream nystatin-triamcinolone 100,000 1 appl topical BID yeast infection 02/03/25 unit/g-0.1 % topical cream #60 grams Allergies Allergy/AdvReac Type Severity Reaction Status Date / Time azithromycin [AZITHROMYCIN] Allergy Severe Rash Verified 03/11/25 01:23 Fish Containing Products Allergy Severe Anaphylaxis Verified 03/11/25 01:23 codeine [Codeine] Allergy Intermediate Rash Verified 03/11/25 01:23 Penicillins Allergy Intermediate Rash Verified 03/11/25 01:23 prednisone [Prednisone] Allergy Intermediate Rash Verified 03/11/25 01:23 Sulfa (Sulfonamide Allergy Intermediate Rash Verified 03/11/25 01:23 Antibiotics) [Sulfa (Sulfonamides)] ziprasidone [From Geodon] Allergy Intermediate dysuria, Verified 03/11/25 01:23 rash lithium Allergy Unknown Rash Verified 03/11/25 01:23 Review of Systems Review of Systems: Constitutional : No Fever, No Chills ENT/Mouth : No Ear Pain, No Nasal Congestion, No sore throat Eyes: No Eye Pain, No Swelling, No Redness Cardiovascular : No Chest Pain, No SOB Respiratory : No Cough, No Sputum, No Dyspnea Gastrointestinal : No Nausea, No Vomiting, No Diarrhea, No Hematochezia, No Melena Genitourinary : No Dysuria, No Urinary Frequency, No Hematuria Musculoskeletal : No Myalgias Skin : No Skin Lesions, No rash Neuro : No Weakness, No Numbness, No Paresthesias, No Dizziness, No Headache Psych : positive Anxiety, positive Depression, no SI/HI, pos AH/VH All other systems reviewed and are negative PMFSH Past Medical History Attestation statement: The following information was validated with the patient. Source: old records reviewed Medical History Asthma Suicidal ideation MDD (major depressive disorder), recurrent episode, severe Chest pain Acute anxiety COVID-19 Full body hives Major depression Dizziness Suicide attempt UTI (urinary tract infection) Acetaminophen overdose COVID History of attempted suicide History of non-suicidal self-harm Hypomagnesemia Suicide attempt Suicide attempt by acetaminophen overdose Acetaminophen overdose Depression Diabetes type 2, controlled Borderline personality disorder PTSD (post-traumatic stress disorder) Overdose GERD (gastroesophageal reflux disease) Mood disorder Hyperlipidemia Bronchitis Social History Social History Household Members: Other Household Members Other:: nursing home members Housing: Other Housing Other:: nursing home Do you presently have visiting nurse or other home services: No Unable to assess alcohol history related to: Unknown Alcohol intake: never Comment: sitter in room Patient Tobacco Use Status: Current everyday Tobacco user Tobacco use type: Cigarette Cigarette Packs Per Day: 1 Cigarettes Per Day: 20.0 Years Smoked: 10 Smoked in Last 30 Days: No e-Cigarette/Vaping Use: Never Used Second Hand Smoke Exposure: No Substance Use Type: Caffiene Advance Directives: No Advance Directives Information Provided: No Do you have a plan to hurt others: No Plan Patient : No service: No Current occupational status: unemployed and disabled Sexual orientation: Straight/Heterosexual Physical Exam Vital Signs: Vital Signs: Last Vital Signs Temp 98.2 F 03/11/25 01:32 Pulse 120 H 03/11/25 01:32 Resp 16 03/11/25 01:20 BP 136/86 03/11/25 01:32 Pulse Ox 97 03/11/25 01:32 O2 Del Method Room Air 03/11/25 01:20 BMI result Body Mass Index 39.0 Appearance: Alert. Oriented X3. No acute distress. Eyes: Pupils equal, round and reactive to light. ENT: Pharynx normal. Neck: Normal inspection. Neck supple. CVS: Normal heart rate and rhythm. Pulses normal. Respiratory: No respiratory distress. Breath sounds normal. Abdomen: Soft and nontender. Skin: Skin warm and dry. Normal skin color. Normal skin turgor. Extremities: No lower extremity edema. Neuro: Oriented X 3. No motor deficit. No sensory deficit. CN2-12 intact Course Course Course Narrative: Time: 10:48 Date: 03/11/25 Provider: Matt Jack MD Physician observation ended at 1048. Patient has been cleared for discharge by the CARE team. Will follow up as an outpatient at her therapy appointment in the next approximate 10-15 minutes Medications Administered Discontinued Medications Generic Name Dose Route Start Last Admin Trade Name Freq PRN Reason Stop Dose Admin Potassium Chloride 40 meq 03/11/25 07:29 03/11/25 07:59 Potassium Chloride Er 20 Meq Tab.Er.Prt PO 03/11/25 07:30 40 meq ONCE ONE Administration Medical Decision Making Medical Decision Making [facility] Narrative: 49 yo female with chronic SI, BPD, bronchitis here with c/o AH / VH at this time will need labs and CARE team consult. Chronic tachycardia and will replete low K Differential Diagnosis Differential Diagnoses: The differential diagnosis associated with the presentation includes AH/VH, borderline personality d/o Admission/Observation Consideration of admission/observation: Escalation of care including admission/observation considered physician observation started at 8am Consult Healthcare Provider Management of the patient was discussed with: Behavioral Health Provider Lab Data [facility] Lab Attestation statement: I reviewed the patient's lab results. 03/11/25 02:42 03/11/25 02:08 Labs: Lab Results 03/11/25 03/11/25 Range/Units 02:08 02:42 WBC 7.7 (4.8-10.8) X10*3/uL RBC 4.02 L (4.20-5.50) X10*6/uL Hgb 12.5 (12.0-16.0) g/dl Hct 36.7 L (37.0-47.0) % MCV 91.3 (80.0-98.0) fL MCH 31.1 (27.0-33.0) pg MCHC 34.1 (31.0-35.0) g/dl RDW 12.5 (11.0-16.0) % Plt Count 260 (160-400) X10*3/uL MPV 9.1 L (9.4-12.3) fL Immature Gran % (Auto) 0.5 H (0.0-0.4) % Neut % (Auto) 61.4 (45-73) % Lymph % (Auto) 23.7 (20-40) % Pepin % (Auto) 9.6 (2-11) % Eos % (Auto) 4.3 H (0-4) % Baso % (Auto) 0.5 (0-2) % Lymph # (Auto) 1.8 (1.2-4.9) X10*3/uL [place] # (Auto) 0.7 (0.1-1.2) X10*3/uL Eos # (Auto) 0.3 (0.0-0.4) X10*3/uL Baso # (Auto) 0.0 (0.0-0.2) X10*3/uL Abs Immat Gran (auto) 0.04 H (0.00-0.03) X10*3/uL Absolute Neuts (auto) 4.7 (2.0-8.3) x10*3/uL Absolute Nucleated RBC 0.000 (0.0-0.012) X10*3/uL Nucleated RBC % (auto) 0.0 (0.0-0.2) /100WBC Sodium 138 (135-145) mmol/L Potassium 3.1 L (3.3-5.1) mmol/L Chloride 103 (96-108) mmol/L Carbon Dioxide 23 (22-29) mmol/L Anion Gap 15 (12-20) BUN 15 (9-16) mg/dL Creatinine 0.74 (0.5-1.4) mg/dL Estim Creat Clear Calc 109.7 Estimated GFR > 60 Random Glucose 230 H (60-115) mg/dL Calcium 9.0 (8.4-10.2) mg/dL Total Bilirubin 0.2 (0.0-1.0) mg/dL AST 21 (5-31) U/L ALT 24 (0-31) U/L Alkaline Phosphatase 157 H (39-117) U/L Total Protein 6.4 L (6.5-8.0) g/dL Albumin 4.2 (3.5-5.0) g/dL Ethyl Alcohol < 10 mg/dL Independent Historian Clinical information obtained from an independent historian. History obtained from or confirmed by: EMS External Record Review External record reviewed: Outpatient record Discharge Plan Discharge Clinical Impression: Auditory hallucination, Acute hypokalemia Patient Disposition: Home, Self-Care Additional Instructions: You were seen in our Emergency Department today for treatment of a behavioral health issue. It is important after your visit that you follow up with either your behavioral health provider or a primary care doctor within 7 days.? If you have trouble finding a therapist you can reach out to [address] [phone] The National Suicide and Crisis Lifeline can be reached 7 days a week 24 hours a day.? Call 988 to speak with someone.? Return for any worsening symptoms or concerns such as thoughts of self harm or harm to others. Please call 911 if you feel your mental health is worsening.? Prescriptions: No Action nystatin-triamcinolone 100,000-0.1 unit/g-% cream 1 appl topical BID Qty: 60 0RF fluoxetine 40 mg capsule 80 mg PO DAILY clozapine 100 mg tablet 200 mg PO BEDTIME amlodipine 5 mg tablet 5 mg PO DAILY albuterol sulfate 90 mcg/actuation HFA aerosol inhaler 2 puff inhalation Q6H PRN (Reason: Wheezing) prazosin 2 mg capsule 4 mg PO BEDTIME metformin 500 mg tablet 500 mg PO BID nicotine 21 mg/24 hr patch 24 hour 1 patch topical DAILY PRN (Reason: Nicotine Cravings) nystatin-triamcinolone 100,000-0.1 unit/g-% cream 1 appl topical BID Qty: 30 0RF haloperidol 5 mg tablet 5 mg PO TID haloperidol 10 mg tablet 10 mg PO BEDTIME PRN (Reason: hallucinations) fluticasone propion-salmeterol 250-50 mcg/dose blister with device 1 ea inhalation BID Interventions: [place]-Suicide Risk Severity Scale Last Done: 03/11/25 01:23 Print Language: Maori
[2025-03-11] MEDS: Potassium Chloride ER 20 MEQ TAB.ER.PRT 40 MEQ PO (07:59)
[2025-03-11 10:48] VITALS: BP 132/80; PULSE 111; RESP 18; TEMP 36.6; O2SAT 96
[2025-03-11 10:56] VITALS: BP 132/80; PULSE 111; RESP 18; TEMP 36.6; O2SAT 96
[2025-03-14 10:28] LABS: Clozapine (Clozaril) 577 mcg/L; Norclozapine 306 mcg/L (25-400)
== END 2025-03-11 10:56 | disposition home or self-care (01) ==
PROVIDERS: Emergency Provider Emergency Medicine
DX: R44.0 Auditory hallucinations (principal); R45.851 Suicidal ideations; F41.9 Anxiety disorder, unspecified; F32.A Depression, unspecified; E87.6 Hypokalemia; F60.3 Borderline personality disorder; F43.10 Post-traumatic stress disorder, unspecified; F17.210 Nicotine dependence, cigarettes, uncomplicated; E11.9 Type 2 diabetes mellitus without complications; E78.5 Hyperlipidemia, unspecified; Z79.899 Other long term (current) drug therapy
CPT/HCPCS: 36415; 80053; 80159; 80307; 85025; 99284; S9485

== ENCOUNTER 2025-03-18 18:44 | Emergency (ER) | payer MEDICARE, MEDICAID, SELFPAY ==
[2025-03-18 18:52] VITALS: BMI 40.3
[2025-03-18 19:33] LABS: MANUAL DIFF FLAG NO
[2025-03-18 19:34] LABS: Basophils Percent Auto 0.4 % (0-2); Eosinophils Absolute Auto 0.4 X10*3/uL (0.0-0.4); Hematocrit 37.8 % (37.0-47.0); Imm Gran Abs Auto 0.07 X10*3/uL (0.00-0.03); Imm Gran Pct Auto 0.8 % (0.0-0.4); Lymphocytes Absolute Auto 1.6 X10*3/uL (1.2-4.9); Lymphocytes Percent Auto 17.4 % (20-40); Mean Corpuscular HGB Conc 34.4 g/dl (31.0-35.0); Mean Platelet Volume 9.1 fL (9.4-12.3); Monocytes Absolute Auto 0.7 X10*3/uL (0.1-1.2); Monocytes Percent Auto 7.3 % (2-11); Neutrophils Absolute Auto 6.3 x10*3/uL (2.0-8.3); Neutrophils Percent Auto 70.1 % (45-73); Platelet Count 298 X10*3/uL (160-400); Red Cell Distribution Width 12.5 % (11.0-16.0)
[2025-03-18 19:52] LABS: Alanine Aminotransferase 24 U/L (0-31); Albumin Level 4.7 g/dL (3.5-5.0); Alkaline Phosphatase 172 U/L (39-117); Anion Gap 14 (12-20); Aspartate Amino Transferase 20 U/L (5-31); Bilirubin Total 0.2 mg/dL (0.0-1.0); Blood Urea Nitrogen 6 mg/dL (9-16); Carbon Dioxide 22 mmol/L (22-29); Chloride 109 mmol/L (96-108); Creatinine Clr Calc Pharmacy 128.8; Estimated Glomerular Filt Rate > 60; Ethanol < 10 mg/dL; Glucose Random 138 mg/dL (60-115); Potassium 3.2 mmol/L (3.3-5.1); Sodium 142 mmol/L (135-145); Total Protein 7.3 g/dL (6.5-8.0)
[2025-03-18 19:53] LABS: Appearance Urine Clear; Color Urine Yellow; Glucose Urine UA Negative (Negative); Leukocyte Esterase Urine Negative (Negative); Nitrite Urine Negative (Negative); PH 5.5 (5.0-9.0); Specific Gravity - Urine <= 1.005 (1.005-1.025); Urine Blood Negative (Negative); Urine Ketones Negative (Negative); Urine Protein Negative (Neg-Trace)
--- NOTE | 2025-03-18 20:04 | ED.GENADULT ---
HPI - General Adult General Chief complaint: Psychiatric Symptoms Stated complaint: AUDITORY HALLUCINATIONS PER EMS Time Seen by Provider: 03/18/25 20:04 History of Present Illness ED Provider: Paula KIRBY narrative: The patient is a 49-year-old woman with a history of chronic mental illness and very frequent emergency room visits. She lives at a half-way. Today she reported vague suicidal ideation and said that she was hearing voices and so an ambulance was called and she was sent here. After arrival in the emergency room she denies all these complaints. Related Data Home Medications ?Medication ?Instructions ?Recorded ?Confirmed albuterol sulfate 90 mcg/actuation 2 puff inhalation Q6H PRN Wheezing 06/24/24 03/18/25 aerosol inhaler amlodipine 5 mg tablet 5 mg PO DAILY 06/24/24 03/18/25 clozapine 100 mg tablet 200 mg PO BEDTIME 06/24/24 03/18/25 fluoxetine 40 mg capsule 80 mg PO DAILY 06/24/24 03/18/25 prazosin 2 mg capsule 4 mg PO BEDTIME 06/24/24 03/18/25 metformin 500 mg tablet 500 mg PO BID 07/15/24 03/18/25 nicotine 21 mg/24 hr daily 1 patch topical DAILY PRN Nicotine 11/04/24 03/18/25 transdermal patch Cravings fluticasone 250 mcg-salmeterol 50 1 ea inhalation BID 01/10/25 03/18/25 mcg/dose blistr powdr for inhalation haloperidol 10 mg tablet 10 mg PO BEDTIME PRN hallucinations 01/10/25 03/18/25 haloperidol 5 mg tablet 5 mg PO TID 01/10/25 03/18/25 Previous Rx's ?Medication ?Instructions ?Recorded nystatin-triamcinolone 100,000 1 appl topical BID yeast infection 02/03/25 unit/g-0.1 % topical cream #60 grams Allergies Allergy/AdvReac Type Severity Reaction Status Date / Time azithromycin [AZITHROMYCIN] Allergy Severe Rash Verified 03/18/25 18:54 Fish Containing Products Allergy Severe Anaphylaxis Verified 03/18/25 18:54 codeine [Codeine] Allergy Intermediate Rash Verified 03/18/25 18:54 Penicillins Allergy Intermediate Rash Verified 03/18/25 18:54 prednisone [Prednisone] Allergy Intermediate Rash Verified 03/18/25 18:54 Sulfa (Sulfonamide Allergy Intermediate Rash Verified 03/18/25 18:54 Antibiotics) [Sulfa (Sulfonamides)] ziprasidone [From Geodon] Allergy Intermediate dysuria, Verified 03/18/25 18:54 rash lithium Allergy Unknown Rash Verified 03/18/25 18:54 Review of Systems Review of Systems: Yes all other systems are reviewed and are negative [facility] Past Medical History Medical History Asthma Suicidal ideation MDD (major depressive disorder), recurrent episode, severe Chest pain Acute anxiety COVID-19 Full body hives Major depression Dizziness Suicide attempt UTI (urinary tract infection) Acetaminophen overdose COVID History of attempted suicide History of non-suicidal self-harm Hypomagnesemia Suicide attempt Suicide attempt by acetaminophen overdose Acetaminophen overdose Depression Diabetes type 2, controlled Borderline personality disorder PTSD (post-traumatic stress disorder) Overdose GERD (gastroesophageal reflux disease) Mood disorder Hyperlipidemia Bronchitis Social History Social History Household Members: Other Household Members Other:: half-way members Housing: Other Housing Other:: half-way Do you presently have visiting nurse or other home services: No Unable to assess alcohol history related to: Unknown Alcohol intake: never Comment: sitter in room Patient Tobacco Use Status: Current everyday Tobacco user Tobacco use type: Cigarette Cigarette Packs Per Day: 1 Cigarettes Per Day: 20.0 Years Smoked: 10 e-Cigarette/Vaping Use: Never Used Second Hand Smoke Exposure: No Substance Use Type: Caffiene Advance Directives: No Advance Directives Information Provided: Yes service: No Current occupational status: unemployed and disabled Sexual orientation: Straight/Heterosexual Physical Exam ED Vital Signs: Vital Signs - 24 hr 03/18/25 20:30 Temperature 98.7 F Pulse Rate 110 H Respiratory Rate 16 Blood Pressure 170/100 H Pulse Oximetry 97 Oxygen Delivery Method Room Air BMI result Body Mass Index 40.3 Const Other: The patient was awake and alert and seemed in no distress. Orientation/consciousness: patient oriented x3 HENMT Other: Face symmetrical, mucous membranes moist Eyes General: appearance normal, both eyes and all related structures Neck Neck: Yes full ROM Resp Effort & Inspection: normal respiratory effort Auscultation: clear to auscultation bilaterally Cardio Rate: regular rate Rhythm: regular rhythm Heart sounds: S1 normal heart sound present and S2 normal heart sound present Skin General skin exam: no rashes or lesions noted Neuro General: patient oriented x3, gait normal, tone normal, moves all extremities, no focal motor deficits and CN's II-XI intact bilaterally Extrem General: Yes no pedal edema Psych Other: the patient was calm. She denied suicidal or homicidal ideation. She denied auditory or visual hallucinations. Medical Decision Making Medical Decision Making [facility] Narrative: The patient is a 49-year-old woman with a history of chronic mental illness who lives at a half-way and who has a history of innumerable emergency room visits for behavioral health complaints. She presented by ambulance after complaining of vague suicidal ideation. As soon as she arrived here she recanted all concerning symptoms and wished to returned to her half-way. The care team spoke with the half-way and they were comfortable having her return. She was then discharged. Lab Data 03/18/25 19:28 03/18/25 19:28 Labs: Lab Results 03/18/25 03/18/25 03/18/25 Range/Units 19:28 19:43 19:44 WBC 9.0 (4.8-10.8) X10*3/uL RBC 4.20 (4.20-5.50) X10*6/uL Hgb 13.0 (12.0-16.0) g/dl Hct 37.8 (37.0-47.0) % MCV 90.0 (80.0-98.0) fL MCH 31.0 (27.0-33.0) pg MCHC 34.4 (31.0-35.0) g/dl RDW 12.5 (11.0-16.0) % Plt Count 298 (160-400) X10*3/uL MPV 9.1 L (9.4-12.3) fL Immature Gran % (Auto) 0.8 H (0.0-0.4) % Neut % (Auto) 70.1 (45-73) % Lymph % (Auto) 17.4 L (20-40) % Hunt % (Auto) 7.3 (2-11) % Eos % (Auto) 4.0 (0-4) % Baso % (Auto) 0.4 (0-2) % Lymph # (Auto) 1.6 (1.2-4.9) X10*3/uL [place] # (Auto) 0.7 (0.1-1.2) X10*3/uL Eos # (Auto) 0.4 (0.0-0.4) X10*3/uL Baso # (Auto) 0.0 (0.0-0.2) X10*3/uL Abs Immat Gran (auto) 0.07 H (0.00-0.03) X10*3/uL Absolute Neuts (auto) 6.3 (2.0-8.3) x10*3/uL Absolute Nucleated RBC 0.000 (0.0-0.012) X10*3/uL Nucleated RBC % (auto) 0.0 (0.0-0.2) /100WBC Sodium 142 (135-145) mmol/L Potassium 3.2 L (3.3-5.1) mmol/L Chloride 109 H (96-108) mmol/L Carbon Dioxide 22 (22-29) mmol/L Anion Gap 14 (12-20) BUN 6 L (9-16) mg/dL Creatinine 0.69 (0.5-1.4) mg/dL Estim Creat Clear Calc 128.8 Estimated GFR > 60 Random Glucose 138 H (60-115) mg/dL Calcium 9.0 (8.4-10.2) mg/dL Total Bilirubin 0.2 (0.0-1.0) mg/dL AST 20 (5-31) U/L ALT 24 (0-31) U/L Alkaline Phosphatase 172 H (39-117) U/L Total Protein 7.3 (6.5-8.0) g/dL Albumin 4.7 (3.5-5.0) g/dL Urine Color Yellow Urine Appearance Clear Urine pH 5.5 (5.0-9.0) Ur Specific [place] <= 1.005 (1.005-1.025) Urine Protein Negative (Neg-Trace) mg/dL Urine Glucose (UA) Negative (Negative) mg/dL Urine Ketones Negative (Negative) mg/dL Urine Blood Negative (Negative) Urine Nitrite Negative (Negative) Ur Leukocyte Esterase Negative (Negative) Urine Opiates Screen Not Detected (Not Detect) Ur Buprenorphine Scrn Not Detected (Not Detect) ng/mL Ur Oxycodone Screen Not Detected (Not Detect) ng/mL Urine Methadone Screen Not Detected (Not Detect) ng/mL Urine Fentanyl Screen Not Detected (Not Detect) Ur Barbiturates Screen Not Detected (Not Detect) Ur Phencyclidine Scrn Not Detected (Not Detect) Ur Amphetamines Screen Not Detected (Not Detect) U Benzodiazepines Scrn Not Detected (Not Detect) Urine Cocaine Screen Not Detected (Not Detect) U Marijuana (THC) Screen Not Detected (Not Detect) Ethyl Alcohol < 10 mg/dL Discharge Plan Discharge Clinical Impression: Encounter for behavioral health screening, Schizophrenia Patient Disposition: Home, Self-Care Additional Instructions: Please continue your regular medications. Please follow up with your regular providers. Prescriptions: No Action nystatin-triamcinolone 100,000-0.1 unit/g-% cream 1 appl topical BID Qty: 60 0RF fluoxetine 40 mg capsule 80 mg PO DAILY clozapine 100 mg tablet 200 mg PO BEDTIME amlodipine 5 mg tablet 5 mg PO DAILY albuterol sulfate 90 mcg/actuation HFA aerosol inhaler 2 puff inhalation Q6H PRN (Reason: Wheezing) prazosin 2 mg capsule 4 mg PO BEDTIME metformin 500 mg tablet 500 mg PO BID nicotine 21 mg/24 hr patch 24 hour 1 patch topical DAILY PRN (Reason: Nicotine Cravings) haloperidol 5 mg tablet 5 mg PO TID haloperidol 10 mg tablet 10 mg PO BEDTIME PRN (Reason: hallucinations) fluticasone propion-salmeterol 250-50 mcg/dose blister with device 1 ea inhalation BID Interventions: [place]-Suicide Risk Severity Scale Last Done: 03/18/25 20:29 ED Discharge Assessment Last Done: 03/18/25 20:30 Discharge Date/Time: 03/18/25 20:46 Print Language: Yoruba
[2025-03-18 20:06] LABS: Amphetamine Screen Urine Not Detected (Not Detect); Barbiturates, Urine Not Detected (Not Detect); Benzodiazepines Screen Urine Not Detected (Not Detect); Buprenorphine Scr Not Detected (Not Detect); Cannabinoid Screen Urine Not Detected (Not Detect); Cocaine Screen Urine Not Detected (Not Detect); Fentanyl, urine Not Detected (Not Detect); Methadone Screen, Urine Not Detected (Not Detect); Opiate Screen Urine Not Detected (Not Detect); Oxycodone Screen Urine Not Detected (Not Detect); Phencyclidine Screen Urine Not Detected (Not Detect)
[2025-03-18 20:30] VITALS: BP 170/100; PULSE 110; RESP 16; TEMP 37.1; O2SAT 97
== END 2025-03-18 20:46 | disposition home or self-care (01) ==
PROVIDERS: Emergency Provider Emergency Medicine; PCP Nurse Practitioner Family
DX: F20.9 Schizophrenia, unspecified (principal); R45.851 Suicidal ideations; Z79.899 Other long term (current) drug therapy
CPT/HCPCS: 36415; 80053; 80307; 81003; 85025; 99283

== ENCOUNTER 2025-03-24 20:44 | Emergency (ER) | payer MEDICARE, MEDICAID, SELFPAY ==
[2025-03-24 20:57] VITALS: BP 162/92; PULSE 118; O2SAT 97
[2025-03-24 21:07] VITALS: BP 173/109; PULSE 113; RESP 18; TEMP 36.6; O2SAT 94; BMI 42.4
--- NOTE | 2025-03-24 21:28 | ED_ITS ---
HPI - Skin/Abscess/Foreign Bdy General Chief complaint: Skin/Abscess/Foreign Body Stated complaint: lower abd rash Time Seen by Provider: 03/24/25 20:57 Source: patient and EMS Mode of arrival: EMS Limitations: no limitations History of Present Illness ED Provider: Dr. Eileen Ryan HPI narrative: patient comes to the emergency room complaining of candidiasis under her abdomen skin folds. Patient states that she has been showering every day, states that she has been applying nystatin but the rash keeps getting worse. Patient states it hurts when she walks because of the skin folds rubbing against each other. Patient denies fever chills. Related Data Home Medications ?Medication ?Instructions ?Recorded ?Confirmed albuterol sulfate 90 mcg/actuation 2 puff inhalation Q6H PRN Wheezing 06/24/24 03/18/25 aerosol inhaler amlodipine 5 mg tablet 5 mg PO DAILY 06/24/24 03/18/25 clozapine 100 mg tablet 200 mg PO BEDTIME 06/24/24 03/18/25 fluoxetine 40 mg capsule 80 mg PO DAILY 06/24/24 03/18/25 prazosin 2 mg capsule 4 mg PO BEDTIME 06/24/24 03/18/25 metformin 500 mg tablet 500 mg PO BID 07/15/24 03/18/25 nicotine 21 mg/24 hr daily 1 patch topical DAILY PRN Nicotine 11/04/24 03/18/25 transdermal patch Cravings fluticasone 250 mcg-salmeterol 50 1 ea inhalation BID 01/10/25 03/18/25 mcg/dose blistr powdr for inhalation haloperidol 10 mg tablet 10 mg PO BEDTIME PRN hallucinations 01/10/25 03/18/25 haloperidol 5 mg tablet 5 mg PO TID 01/10/25 03/18/25 Previous Rx's ?Medication ?Instructions ?Recorded nystatin-triamcinolone 100,000 1 appl topical BID yeast infection 02/03/25 unit/g-0.1 % topical cream #60 grams butenafine 1 % topical cream 1 appl topical TID 4 weeks #30 03/24/25 (Lotrimin Ultra) grams Allergies Allergy/AdvReac Type Severity Reaction Status Date / Time azithromycin [AZITHROMYCIN] Allergy Severe Rash Verified 03/24/25 21:08 Fish Containing Products Allergy Severe Anaphylaxis Verified 03/24/25 21:08 codeine [Codeine] Allergy Intermediate Rash Verified 03/24/25 21:08 Penicillins Allergy Intermediate Rash Verified 03/24/25 21:08 prednisone [Prednisone] Allergy Intermediate Rash Verified 03/24/25 21:08 Sulfa (Sulfonamide Allergy Intermediate Rash Verified 03/24/25 21:08 Antibiotics) [Sulfa (Sulfonamides)] ziprasidone [From Geodon] Allergy Intermediate dysuria, Verified 03/24/25 21:08 rash lithium Allergy Unknown Rash Verified 03/24/25 21:08 Review of Systems Review of Systems: Constitutional : No Weight loss, No Fever, No Chills, No Night Sweats, No Fatigue, No Malaise ENT/Mouth : No Hearing loss, No Ear Pain, No Nasal Congestion, No Sinus Pain, No Hoarseness, No sore throat, No Rhinorrhea, No Swallowing Difficulty Eyes: No Eye Pain, No Swelling, No Redness, No Foreign Body, No Discharge, No Vision Changes Cardiovascular : No Chest Pain, No SOB, No Dyspnea on Exertion, No Orthopnea, No Edema, No Palpitations Respiratory : No Cough, No Sputum, No Wheezing, No Smoke Exposure, No Dyspnea Gastrointestinal : No Nausea, No Vomiting, No Diarrhea, No Constipation, No abdominal Pain, No Hematochezia, No Melena Genitourinary : no irregular bleeding, No Dysuria, No Urinary Frequency, No Hematuria, No Urinary Incontinence, No Urgency, No Flank Pain, No Urinary Flow Changes, No Hesitancy Musculoskeletal : No joint pain, No Myalgias, No Joint Swelling Skin : Complaining of worsening candidiasis in the skin falls under the abdomen Neuro : No Weakness, No Numbness, No Paresthesias, No Loss of Consciousness, No Dizziness, No Headache Psych : No Anxiety/Panic, No Depression, No SI/HI/AH/VH, No Social Issues, Heme/Lymph: No Bruising, No Bleeding,No Lymphadenopathy Endocrine : No Polyuria, No Polydipsia, No Temperature Intolerance PMFSH Past Medical History Medical History Asthma Suicidal ideation MDD (major depressive disorder), recurrent episode, severe Chest pain Acute anxiety COVID-19 Full body hives Major depression Dizziness Suicide attempt UTI (urinary tract infection) Acetaminophen overdose COVID History of attempted suicide History of non-suicidal self-harm Hypomagnesemia Suicide attempt Suicide attempt by acetaminophen overdose Acetaminophen overdose Depression Diabetes type 2, controlled Borderline personality disorder PTSD (post-traumatic stress disorder) Overdose GERD (gastroesophageal reflux disease) Mood disorder Hyperlipidemia Bronchitis Social History Social History Household Members: Other Household Members Other:: skilled nursing members Housing: Other Housing Other:: skilled nursing Do you presently have visiting nurse or other home services: No Unable to assess alcohol history related to: Unknown Alcohol intake: never Comment: sitter in room Patient Tobacco Use Status: Current everyday Tobacco user Tobacco use type: Cigarette Cigarette Packs Per Day: 1 Cigarettes Per Day: 20.0 Years Smoked: 10 e-Cigarette/Vaping Use: Never Used Second Hand Smoke Exposure: No Substance Use Type: Caffiene Advance Directives: No Advance Directives Information Provided: No service: No Current occupational status: unemployed and disabled Sexual orientation: Straight/Heterosexual Physical Exam Vital Signs: Vital Signs: Last Vital Signs Temp 97.9 F 03/24/25 21:07 Pulse 113 H 03/24/25 21:07 Resp 18 03/24/25 21:07 BP 173/109 H 03/24/25 21:07 Pulse Ox 94 03/24/25 21:07 O2 Del Method Room Air 03/24/25 21:07 BMI result Body Mass Index 42.4 Const: Other: Appearance: Alert. Oriented X3. No acute distress. Eyes: Pupils equal, round and reactive to light. ENT: Pharynx normal. Neck: Normal inspection. Neck supple. No lymph nodes noted. No crepitus CVS: Normal heart rate and rhythm. Pulses normal. Normal S1 and S2 Respiratory: No respiratory distress. Breath sounds normal. No Wheezing. No rales Abdomen: Soft and nontender. No rigidity. No distention. under the skin folds of the abdomen, there has candidiasis. No signs of cellulitis Skin: Skin warm and dry. Normal skin color. Normal skin turgor. Extremities: No lower extremity edema. No Lacerations. No Rash Neuro: Oriented X 3. No motor deficit. No sensory deficit. Moving all extremities. No slurred speech. CN 2 through 12 grossly intact Psych: calm, cooperative, normal affect Course Course Course Narrative: patient complaining of worsening candidiasis, nystatin not improving the patient's rash Medical Decision Making Medical Decision Making MDM Narrative: I discussed with the patient that it is important to keep the area in between the skin folds dry. We will switch the patient's medication. No signs of cellulitis Discharge Plan Discharge Clinical Impression: Candidiasis Patient Disposition: Home, Self-Care Instructions: Yeast Infection (ED) Additional Instructions: after applying it medication, put a dry cloth, gauzes or dry peppery towels in between the skin folds to avoid humidity building up in between the skin folds. Please follow-up with your primary care physician tomorrow. If you have any worsening or new symptoms, please return to the emergency room or call 911 Prescriptions: New butenafine [Lotrimin Ultra] 1 % cream 1 appl topical TID 28 Days Qty: 30 3RF No Action nystatin-triamcinolone 100,000-0.1 unit/g-% cream 1 appl topical BID Qty: 60 0RF fluoxetine 40 mg capsule 80 mg PO DAILY clozapine 100 mg tablet 200 mg PO BEDTIME amlodipine 5 mg tablet 5 mg PO DAILY albuterol sulfate 90 mcg/actuation HFA aerosol inhaler 2 puff inhalation Q6H PRN (Reason: Wheezing) prazosin 2 mg capsule 4 mg PO BEDTIME metformin 500 mg tablet 500 mg PO BID nicotine 21 mg/24 hr patch 24 hour 1 patch topical DAILY PRN (Reason: Nicotine Cravings) haloperidol 5 mg tablet 5 mg PO TID haloperidol 10 mg tablet 10 mg PO BEDTIME PRN (Reason: hallucinations) fluticasone propion-salmeterol 250-50 mcg/dose blister with device 1 ea inhalation BID Print Language: Bengali
[2025-03-24 22:34] VITALS: BP 000/00; PULSE 113; RESP 18; TEMP 36.6; O2SAT 94
== END 2025-03-24 22:10 | disposition home or self-care (01) ==
PROVIDERS: Emergency Provider Emergency Medicine
DX: B37.2 Candidiasis of skin and nail (principal); Z79.899 Other long term (current) drug therapy
CPT/HCPCS: 99282; 99283

== ENCOUNTER 2025-03-25 15:39 | Outpatient (REF) | payer MEDICARE, MEDICAID, SELFPAY ==
[2025-03-25 15:54] LABS: MANUAL DIFF FLAG NO
[2025-03-25 16:08] LABS: Basophils Percent Auto 0.5 % (0-2); Eosinophils Absolute Auto 0.4 X10*3/uL (0.0-0.4); Hematocrit 40.6 % (37.0-47.0); Hemoglobin 13.6 g/dl (12.0-16.0); Imm Gran Abs Auto 0.06 X10*3/uL (0.00-0.03); Imm Gran Pct Auto 0.7 % (0.0-0.4); Lymphocytes Absolute Auto 1.6 X10*3/uL (1.2-4.9); Lymphocytes Percent Auto 18.6 % (20-40); Mean Corpuscular HGB Conc 33.5 g/dl (31.0-35.0); Mean Corpuscular Hemoglobin 30.8 pg (27.0-33.0); Mean Corpuscular Volume 91.9 fL (80.0-98.0); Mean Platelet Volume 9.2 fL (9.4-12.3); Monocytes Absolute Auto 0.6 X10*3/uL (0.1-1.2); Monocytes Percent Auto 7.1 % (2-11); Neutrophils Absolute Auto 5.9 x10*3/uL (2.0-8.3); Neutrophils Percent Auto 68.1 % (45-73); Platelet Count 312 X10*3/uL (160-400); Red Blood Count 4.42 X10*6/uL (4.20-5.50); Red Cell Distribution Width 12.7 % (11.0-16.0); White Blood Count 8.6 X10*3/uL (4.8-10.8)
== END 2025-03-25 15:40 | disposition home or self-care (01) ==
LOC: HO.LABR 15:39
DX: Z79.899 Other long term (current) drug therapy (principal)
CPT/HCPCS: 36415; 85025

== ENCOUNTER 2025-04-15 20:37 | Emergency (ER) | payer MEDICARE, MEDICAID, SELFPAY ==
[2025-04-15 20:40] VITALS: BP 154/98; PULSE 121; O2SAT 96
[2025-04-15 20:48] VITALS: BMI 39.5
[2025-04-15 20:56] VITALS: BP 107/81; PULSE 118; RESP 18; TEMP 36.4; O2SAT 97
--- NOTE | 2025-04-15 21:09 | ED.PSYCH ---
HPI - Psych General Chief Complaint: Psychiatric Symptoms Stated Complaint: FROM GH, SI, HEARING VOICES PER EMS Source: patient, EMS and old records reviewed Mode of arrival: EMS Limitations: no limitations History of Present Illness ED Provider: LILIA HPI Narrative: 49 yo female with PMH of PTSD, borderline personality disorder, anxiety, DM, GERD here with c/o hearing her father's voice and he is telling her to hurt herself. She reports SI. She states she is self harming again and cutting her arms. She denies HI. She has no other complaints. She is compliant with medications. MD complaint: suicidal ideation and hallucinations Onset (ago): week(s) Duration: intermittent History of same: Yes Relieving factors: none Exacerbating factors: other Context: significant life stressor Associated psychiatric symptoms: depression, suicidal ideation and auditory hallucinations Associated symptoms: denies other symptoms Treatments prior to arrival: none If self harm: admits thoughts of self harm and self-inflicted trauma Related Data Home Medications ?Medication ?Instructions ?Recorded ?Confirmed albuterol sulfate 90 mcg/actuation 2 puff inhalation Q6H PRN Wheezing 06/24/24 04/15/25 aerosol inhaler amlodipine 5 mg tablet 5 mg PO DAILY 06/24/24 04/15/25 clozapine 100 mg tablet 200 mg PO BEDTIME 06/24/24 04/15/25 fluoxetine 40 mg capsule 80 mg PO DAILY 06/24/24 04/15/25 prazosin 2 mg capsule 4 mg PO BEDTIME 06/24/24 04/15/25 metformin 500 mg tablet 500 mg PO BID 07/15/24 04/15/25 nicotine 21 mg/24 hr daily 1 patch topical DAILY PRN Nicotine 11/04/24 04/15/25 transdermal patch Cravings fluticasone 250 mcg-salmeterol 50 1 ea inhalation BID 01/10/25 04/15/25 mcg/dose blistr powdr for inhalation haloperidol 10 mg tablet 10 mg PO BEDTIME PRN hallucinations 01/10/25 04/15/25 haloperidol 5 mg tablet 5 mg PO TID 01/10/25 04/15/25 Previous Rx's ?Medication ?Instructions ?Recorded nystatin-triamcinolone 100,000 1 appl topical BID yeast infection 02/03/25 unit/g-0.1 % topical cream #60 grams butenafine 1 % topical cream 1 appl topical TID 4 weeks #30 03/24/25 (Lotrimin Ultra) grams Allergies Allergy/AdvReac Type Severity Reaction Status Date / Time azithromycin (AZITHROMYCIN) Allergy Severe Rash Verified 04/15/25 20:50 Fish Containing Products Allergy Severe Anaphylaxis Verified 04/15/25 20:50 codeine (Codeine) Allergy Intermediate Rash Verified 04/15/25 20:50 Penicillins Allergy Intermediate Rash Verified 04/15/25 20:50 prednisone (Prednisone) Allergy Intermediate Rash Verified 04/15/25 20:50 Sulfa (Sulfonamide Allergy Intermediate Rash Verified 04/15/25 20:50 Antibiotics) (Sulfa (Sulfonamides)) ziprasidone (From Geodon) Allergy Intermediate dysuria, Verified 04/15/25 20:50 rash lithium Allergy Unknown Rash Verified 04/15/25 20:50 Review of Systems Review of Systems: Constitutional : No Fever, No Chills ENT/Mouth : No Ear Pain, No Nasal Congestion, No sore throat Eyes: No Eye Pain, No Swelling, No Redness Cardiovascular : No Chest Pain, No SOB Respiratory : No Cough, No Sputum, No Dyspnea Gastrointestinal : No Nausea, No Vomiting, No Diarrhea, No Hematochezia, No Melena Genitourinary : No Dysuria, No Urinary Frequency, No Hematuria Musculoskeletal : No Myalgias Skin : No Skin Lesions, No rash Neuro : No Weakness, No Numbness, No Paresthesias, No Dizziness, No Headache Psych : positive Anxiety, positive Depression, positive SI no HI All other systems reviewed and are negative PMFSH Past Medical History Attestation statement: The following information was validated with the patient. Source: old records reviewed Medical History Asthma Suicidal ideation MDD (major depressive disorder), recurrent episode, severe Chest pain Acute anxiety COVID-19 Full body hives Major depression Dizziness Suicide attempt UTI (urinary tract infection) Acetaminophen overdose COVID History of attempted suicide History of non-suicidal self-harm Hypomagnesemia Suicide attempt Suicide attempt by acetaminophen overdose Acetaminophen overdose Depression Diabetes type 2, controlled Borderline personality disorder PTSD (post-traumatic stress disorder) Overdose GERD (gastroesophageal reflux disease) Mood disorder Hyperlipidemia Bronchitis Social History Social History Household Members: Other Household Members Other:: [facility] members Housing: Other Housing Other:: [facility] Do you presently have visiting nurse or other home services: No Unable to assess alcohol history related to: Unknown Alcohol intake: never Comment: sitter in room Patient Tobacco Use Status: Current everyday Tobacco user Tobacco use type: Cigarette Cigarette Packs Per Day: 1 Cigarettes Per Day: 20.0 Years Smoked: 10 Smoked in Last 30 Days: Yes e-Cigarette/Vaping Use: Never Used Second Hand Smoke Exposure: No Substance Use Type: Caffiene Advance Directives: No Advance Directives Information Provided: No Do you have a plan to hurt others: No Plan service: No Current occupational status: unemployed and disabled Sexual orientation: Straight/Heterosexual Physical Exam Vital Signs: Vital Signs: Last Vital Signs Temp 97.3 F 04/16/25 11:43 Pulse 116 H 04/16/25 11:43 Resp 16 04/16/25 11:43 BP 131/88 04/16/25 11:43 Pulse Ox 96 04/16/25 11:43 O2 Del Method Room Air 04/16/25 11:43 BMI result Body Mass Index 39.5 Appearance: Alert. Oriented X3. No acute distress. Eyes: Pupils equal, round and reactive to light. ENT: Pharynx normal. Neck: Normal inspection. Neck supple. CVS: Normal heart rate and rhythm. Pulses normal. Respiratory: No respiratory distress. Breath sounds normal. Abdomen: Soft and nontender. Skin: Skin warm and dry. Normal skin color. Normal skin turgor. Extremities: No lower extremity edema. No calf ttp L forearm scabbed linear abrasions no signs of infection Neuro: Oriented X 3. No motor deficit. No sensory deficit. CN2-12 intact Course Reevaluation(s) Reevaluation #1: 04/16/25 11:28 JUN Wilcox: Per CARE team, patient cleared for discharge back to [facility]. Observation care revealed that patient does not meet medical necessity for hospitalization. Final disposition discussed with patient. The patient completed observation care at 11:30 on 04/16/25. Time: 11:28 Medications Administered Discontinued Medications Generic Name Dose Route Start Last Admin Trade Name Freq PRN Reason Stop Dose Admin Albuterol Sulfate 2 puff 04/15/25 21:05 04/16/25 05:19 Albuterol Sulfate 90 Mcg 8 Gm Inhaler INHALE 2 puff Q6H PRN Administration Wheezing Amlodipine Besylate 5 mg 04/16/25 09:00 04/16/25 08:53 Amlodipine Besylate 5 Mg Tablet PO 5 mg DAILY YULY Administration Protocol Clozapine 200 mg 04/15/25 21:15 04/15/25 21:42 Clozapine 100 Mg Tablet PO 200 mg BEDTIME YULY Administration Fluoxetine HCl 80 mg 04/16/25 09:00 04/16/25 08:52 Fluoxetine Hcl 20 Mg Capsule PO 80 mg DAILY YULY Administration Fluticasone/Vilanterol 1 puff 04/16/25 08:00 04/16/25 05:56 Fluticasone/Vilanterol 100/25 Blst.W.Dev INHALE 1 puff RDAILY YULY Administration Haloperidol 5 mg 04/15/25 21:15 04/16/25 08:52 Haloperidol 5 Mg Tablet PO 5 mg TID YULY Administration Metformin HCl 500 mg 04/16/25 08:00 04/16/25 08:52 Metformin Hcl 500 Mg Tablet PO 500 mg BIDWM YULY Administration Nystatin/Triamcinolone Acetonide 1 appl 04/15/25 21:15 04/16/25 08:53 Nystatin/Triamcinolone Cream 15 Gm Tube TOPICAL 1 appl BID YULY Administration Protocol Prazosin HCl 4 mg 04/15/25 21:15 04/15/25 21:42 Prazosin Hcl 1 Mg Capsule PO 4 mg BEDTIME YULY Administration Protocol Medical Decision Making Medical Decision Making [facility] Narrative: 49 yo female with PMH of PTSD, borderline personality disorder, anxiety, DM, GERD here with c/o SI and AH - she has minor abrasion on L forearm. At this time no medical complaints. She will receive her night meds as well. CARE team consult ordered Patient is seen by care team. Feel comfortable with discharge. No longer suicidal. Not homicidal. In stable condition. Differential Diagnosis Differential Diagnoses: The differential diagnosis associated with the presentation includes PTSD, borderline personality disorder Admission/Observation Consideration of admission/observation: Escalation of care including admission/observation considered Consult Healthcare Provider Management of the patient was discussed with: Behavioral Health Provider Lab Data [facility] Lab Attestation statement: I reviewed the patient's lab results. 04/15/25 22:01 04/15/25 22:01 Labs: Lab Results 04/15/25 Range/Units 22:01 WBC 8.7 (4.8-10.8) X10*3/uL RBC 4.15 L (4.20-5.50) X10*6/uL Hgb 12.9 (12.0-16.0) g/dl Hct 37.8 (37.0-47.0) % MCV 91.1 (80.0-98.0) fL MCH 31.1 (27.0-33.0) pg MCHC 34.1 (31.0-35.0) g/dl RDW 13.0 (11.0-16.0) % Plt Count 303 (160-400) X10*3/uL MPV 9.6 (9.4-12.3) fL Immature Gran % (Auto) 0.7 H (0.0-0.4) % Neut % (Auto) 65.4 (45-73) % Lymph % (Auto) 21.5 (20-40) % Cobb % (Auto) 8.5 (2-11) % Eos % (Auto) 3.3 (0-4) % Baso % (Auto) 0.6 (0-2) % Lymph # (Auto) 1.9 (1.2-4.9) X10*3/uL Cobb # (Auto) 0.7 (0.1-1.2) X10*3/uL Eos # (Auto) 0.3 (0.0-0.4) X10*3/uL Baso # (Auto) 0.1 (0.0-0.2) X10*3/uL Abs Immat Gran (auto) 0.06 H (0.00-0.03) X10*3/uL Absolute Neuts (auto) 5.7 (2.0-8.3) x10*3/uL Absolute Nucleated RBC 0.000 (0.0-0.012) X10*3/uL Nucleated RBC % (auto) 0.0 (0.0-0.2) /100WBC Sodium 141 (135-145) mmol/L Potassium 3.4 (3.3-5.1) mmol/L Chloride 109 H (96-108) mmol/L Carbon Dioxide 22 (22-29) mmol/L Anion Gap 13 (12-20) BUN 11 (9-16) mg/dL Creatinine 0.74 (0.5-1.4) mg/dL Estim Creat Clear Calc 110.6 Estimated GFR > 60 Random Glucose 216 H (60-115) mg/dL Calcium 8.5 (8.4-10.2) mg/dL Total Bilirubin 0.2 (0.0-1.0) mg/dL AST 22 (5-31) U/L ALT 23 (0-31) U/L Alkaline Phosphatase 183 H (39-117) U/L Total Protein 7.1 (6.5-8.0) g/dL Albumin 4.6 (3.5-5.0) g/dL Ethyl Alcohol < 10 mg/dL Discharge Plan Discharge Clinical Impression: PTSD (post-traumatic stress disorder) Patient Disposition: Home, Self-Care Instructions: PTSD (Post Traumatic Stress Disorder) (ED) Additional Instructions: You were seen in our Emergency Department today for treatment of a behavioral health issue. It is important after your visit that you follow up with either your behavioral health provider or a primary care doctor within 7 days.? If you have trouble finding a therapist you can reach out to [place] [phone] [facility] [employer] [facility] can be reached 7 days a week 24 hours a day.? Call [phone] to speak with someone.? Return for any worsening symptoms or concerns such as thoughts of self harm or harm to others. Please call 911 if you feel your mental health is worsening.? Prescriptions: No Action nystatin-triamcinolone 100,000-0.1 unit/g-% cream 1 appl topical BID Qty: 60 0RF butenafine [Lotrimin Ultra] 1 % cream 1 appl topical TID 28 Days Qty: 30 3RF fluoxetine 40 mg capsule 80 mg PO DAILY clozapine 100 mg tablet 200 mg PO BEDTIME amlodipine 5 mg tablet 5 mg PO DAILY albuterol sulfate 90 mcg/actuation HFA aerosol inhaler 2 puff inhalation Q6H PRN (Reason: Wheezing) prazosin 2 mg capsule 4 mg PO BEDTIME metformin 500 mg tablet 500 mg PO BID nicotine 21 mg/24 hr patch 24 hour 1 patch topical DAILY PRN (Reason: Nicotine Cravings) haloperidol 5 mg tablet 5 mg PO TID haloperidol 10 mg tablet 10 mg PO BEDTIME PRN (Reason: hallucinations) fluticasone propion-salmeterol 250-50 mcg/dose blister with device 1 ea inhalation BID Referrals: Physician,Unknown J [Primary Care Provider, Medical] - 3 days Interventions: Isom-Suicide Risk Severity Scale Last Done: 04/15/25 23:10 ED Discharge Assessment Last Done: 04/16/25 11:43 Discharge Date/Time: 04/16/25 11:44 Print Language: Amharic
[2025-04-15 21:42] VITALS: BP 107/81
[2025-04-15] MEDS: Albuterol Sulfate 90 MCG 8 GM INHALER 2 PUFF INHALE (21:52)
[2025-04-15 22:07] LABS: MANUAL DIFF FLAG NO
[2025-04-15 22:08] LABS: Hematocrit 37.8 % (37.0-47.0); Hemoglobin 12.9 g/dl (12.0-16.0); Imm Gran Abs Auto 0.06 X10*3/uL (0.00-0.03); Imm Gran Pct Auto 0.7 % (0.0-0.4); Lymphocytes Absolute Auto 1.9 X10*3/uL (1.2-4.9); Mean Corpuscular HGB Conc 34.1 g/dl (31.0-35.0); Mean Corpuscular Hemoglobin 31.1 pg (27.0-33.0); Mean Corpuscular Volume 91.1 fL (80.0-98.0); NRBC Abs Auto 0.000 X10*3/uL (0.0-0.012); NRBC Pct Auto 0.0 /100WBC (0.0-0.2); Platelet Count 303 X10*3/uL (160-400); Red Blood Count 4.15 X10*6/uL (4.20-5.50); White Blood Count 8.7 X10*3/uL (4.8-10.8)
[2025-04-15 22:25] LABS: Alanine Aminotransferase 23 U/L (0-31); Albumin Level 4.6 g/dL (3.5-5.0); Alkaline Phosphatase 183 U/L (39-117); Anion Gap 13 (12-20); Aspartate Amino Transferase 22 U/L (5-31); Blood Urea Nitrogen 11 mg/dL (9-16); Calcium 8.5 mg/dL (8.4-10.2); Carbon Dioxide 22 mmol/L (22-29); Chloride 109 mmol/L (96-108); Creatinine Clr Calc Pharmacy 110.6; Estimated Glomerular Filt Rate > 60; Potassium 3.4 mmol/L (3.3-5.1); Sodium 141 mmol/L (135-145); Total Protein 7.1 g/dL (6.5-8.0)
--- NOTE | 2025-04-16 | ECG_ITS ---
Test Reason : tachycardia Blood Pressure : */* mmHG Vent. Rate : 118 BPM Atrial Rate : 118 BPM P-R Int : 188 ms QRS Dur : 88 ms QT Int : 314 ms P-R-T Axes : 61 57 72 degrees QTcB Int : 440 ms Sinus tachycardia Otherwise normal ECG When compared with ECG of 08-Feb-2025 22:24, No significant change was found Referred By: Sona Eagle Electronically Signed By: DONALD HOOKER MD
[2025-04-16] MEDS: Albuterol Sulfate 90 MCG 8 GM INHALER 2 PUFF INHALE (05:19)
[2025-04-16] MEDS: Fluticasone/Vilanterol 100/25 BLST.W.DEV 1 PUFF INHALE (05:56)
[2025-04-16 06:41] VITALS: RESP 20; O2SAT 96
--- NOTE | 2025-04-16 08:51 | MHC.EDTECH ---
This tech provided patient with a urine cup and informed her we needed a urine sample for testing. Patient aware and states will provide sample when she next uses the bathroom.
[2025-04-16 08:53] VITALS: BP 144/89
[2025-04-16 08:55] VITALS: BP 144/89; PULSE 130; RESP 16; TEMP 36.1; O2SAT 96
--- NOTE | 2025-04-16 09:24 | PC.NURSE ---
patient a&ox3, ambulatory with steady gait, pt was medicated per orders. while obtaining vitals it was noted pts hr was elevated- pt asymptomatic of this- denies sob/chest discomfort. ekg performed/dr. veronica aware, plan of care ongoing.
--- NOTE | 2025-04-16 11:17 | PC.NURSE ---
patient came to this nurse stating she is hearing voices and having SI thoughts, asked to speak with care team again. This nurse called care team to notify them, they have come back out to speak with the patient.
[2025-04-16 11:43] VITALS: BP 131/88; PULSE 116; RESP 16; TEMP 36.3; O2SAT 96
--- NOTE | 2025-04-16 11:43 | PC.NURSE ---
pt to discharge back to [facility] via [facility] set up by care team
== END 2025-04-16 11:44 | disposition home or self-care (01) ==
PROVIDERS: Emergency Provider Emergency Medicine
DX: F43.10 Post-traumatic stress disorder, unspecified (principal); R44.0 Auditory hallucinations; R45.851 Suicidal ideations; F41.9 Anxiety disorder, unspecified; F32.A Depression, unspecified; F60.3 Borderline personality disorder; E11.9 Type 2 diabetes mellitus without complications; E78.5 Hyperlipidemia, unspecified; K21.9 Gastro-esophageal reflux disease without esophagitis; F17.210 Nicotine dependence, cigarettes, uncomplicated; Z91.51 Personal history of suicidal behavior; Z79.84 Long term (current) use of oral hypoglycemic drugs; Z79.899 Other long term (current) drug therapy
CPT/HCPCS: 36415; 80053; 80307; 85025; 93005; 99285; S9485

== ENCOUNTER → 2025-04-16 08:57 | Outpatient (BNV) | payer MEDICARE, MEDICAID, SELFPAY | PROVIDERS: Emergency Provider Emergency Medicine; Visit Provider Internal Medicine Cardiovascular Disease | DX: R00.0 Tachycardia, unspecified (principal) | CPT/HCPCS: 93010 ==

== ENCOUNTER 2025-04-22 15:09 | Outpatient (REF) | payer MEDICARE, MEDICAID, SELFPAY ==
[2025-04-22 15:20] LABS: MANUAL DIFF FLAG NO
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
[2025-04-22 17:07] LABS: Hematocrit 38.0 % (37.0-47.0); Hemoglobin 13.0 g/dl (12.0-16.0); Imm Gran Abs Auto 0.07 X10*3/uL (0.00-0.03); Imm Gran Pct Auto 0.7 % (0.0-0.4); Lymphocytes Absolute Auto 1.8 X10*3/uL (1.2-4.9); Mean Corpuscular HGB Conc 34.2 g/dl (31.0-35.0); Mean Corpuscular Hemoglobin 30.7 pg (27.0-33.0); Mean Corpuscular Volume 89.6 fL (80.0-98.0); NRBC Abs Auto 0.000 X10*3/uL (0.0-0.012); NRBC Pct Auto 0.0 /100WBC (0.0-0.2); Platelet Count 325 X10*3/uL (160-400); Red Blood Count 4.24 X10*6/uL (4.20-5.50); White Blood Count 9.7 X10*3/uL (4.8-10.8)
== END 2025-04-22 15:10 | disposition home or self-care (01) ==
LOC: HO.LABR 15:09
DX: Z79.899 Other long term (current) drug therapy (principal)
CPT/HCPCS: 36415; 85025

== ENCOUNTER 2025-04-26 16:42 | Emergency (ER) | payer MEDICARE, MEDICAID, SELFPAY ==
[2025-04-26 16:49] VITALS: BP 133/92; BP 146/96; PULSE 116; PULSE 120; RESP 18; TEMP 36.7; O2SAT 96; O2SAT 97; BMI 31.8
[2025-04-26 16:56] VITALS: BP 133/92; PULSE 116; RESP 18; TEMP 36.7; O2SAT 97
--- NOTE | 2025-04-26 17:44 | ED_ITS ---
HPI - Psych General Chief Complaint: Psychiatric Symptoms Stated Complaint: hearing voices in her head to self harm, +visuals Time Seen by Provider: 04/26/25 17:21 Source: patient and EMS Mode of arrival: EMS Limitations: no limitations History of Present Illness ED Provider: Henrietta Woody NP HPI Narrative: Patient is a 49-year-old female who presents emergency department for evaluation endorsing suicidal ideations, having auditory hallucinations ?they told me to kill myself? also stating that they have advised her to cut herself. She also reports having auditory hallucinations and ?seeing my dad?. Reports hallucination onset of this morning. Denies any recent medication changes and states that she has been compliant with her medications. Denies any attempted overdose, recreational drug or alcohol usage. Denies homicidal ideations. Related Data Home Medications ?Medication ?Instructions ?Recorded ?Confirmed albuterol sulfate 90 mcg/actuation 2 puff inhalation Q 6H PRN Wheezing 06/24/24 04/15/25 aerosol inhaler amlodipine 5 mg tablet 5 mg PO DAILY 06/24/2404/15 clozapine 100 mg tablet 200 mg PO BEDTIME 06/24/24 0 04/15/25 fluoxetine 40 mg capsule 80 mg PO DAILY 06/24/2412/09 prazosin 2 mg capsule 4 mg PO BEDTIME 06/24/2412/09 metformin 500 mg tablet 500 mg PO BID 07/15/2404/15 nicotine 21 mg/24 hr daily 1 patch topical DAILY PRN N icotine 11/04/24 04/15/25 transdermal patch Cravings fluticasone 250 mcg-salmeterol 50 1 ea inhalation BID 01/10/25 04/15/25 mcg/dose blistr powdr for inhalation haloperidol 10 mg tablet 10 mg PO BEDTIME PRN halluci nations 01/10/25 04/15/25 haloperidol 5 mg tablet 5 mg PO TID 01/10/25 5 Previous Rx's ?Medication ?Instructions ?Recorded nystatin-triamcinolone 100,000 1 appl topical BID yeas t infection 02/03/25 unit/g-0.1 % topical cream #60 grams butenafine 1 % topical cream 1 appl topical TID 4 week s #30 03/24/25 (Lotrimin Ultra) grams Allergies Allergy/AdvReac Type Severity Reaction Status Date / Time azithromycin (AZITHROMYCIN) Allergy Severe Rash Verified 04/26/25 16:52 Fish Containing Products Allergy Severe Anaphylaxis Verified 04/26/25 16:52 codeine (Codeine) Allergy Intermediate Rash Verified 04/26/25 16:52 Penicillins Allergy Intermediate Rash Verified 04/26/25 16:52 prednisone (Prednisone) Allergy Intermediate Rash Verified 04/26/25 16:52 Sulfa (Sulfonamide Allergy Intermediate Rash Verified 04/26/25 16:52 Antibiotics) (Sulfa (Sulfonamides)) ziprasidone (From Geodon) Allergy Intermediate dysuria, Verified 04/26/25 16:52 rash lithium Allergy Unknown Rash Verified 04/26/25 16:52 Review of Systems 2 Review of Systems: Yes all other systems are reviewed and are negative PMFSH Past Medical History Attestation statement: The following information was validated with the patient. Source: old records reviewed Medical History Asthma Suicidal ideation MDD (major depressive disorder), recurrent episode, severe Chest pain Acute anxiety COVID-19 Full body hives Major depression Dizziness Suicide attempt UTI (urinary tract infection) Acetaminophen overdose COVID History of attempted suicide History of non-suicidal self-harm Hypomagnesemia Suicide attempt Suicide attempt by acetaminophen overdose Acetaminophen overdose Depression Diabetes type 2, controlled Borderline personality disorder PTSD (post-traumatic stress disorder) Overdose GERD (gastroesophageal reflux disease) Mood disorder Hyperlipidemia Bronchitis Social History Social History Household Members: Other Household Members Other:: nursing home members Housing: Other Housing Other:: nursing home Do you presently have visiting nurse or other home services: No Unable to assess alcohol history related to: Unknown Alcohol intake: never Comment: sitter in room Patient Tobacco Use Status: Current everyday Tobacco user Tobacco use type: Cigarette Cigarette Packs Per Day: 1 Cigarettes Per Day: 20.0 Years Smoked: 10 Smoked in Last 30 Days: No e-Cigarette/Vaping Use: Never Used Second Hand Smoke Exposure: No Use of substances other than those prescribed or required for medical reasons: No Substance Use Type: Caffiene Advance Directives: No Advance Directives Information Provided: No Do you have a plan to hurt others: No Plan Patient : No service: No Current occupational status: unemployed and disabled Sexual orientation: Straight/Heterosexual Physical Exam 2 Vital Signs: Vital Signs: Last Vital Signs Temp 98 F 04/26/25 18:31 Pulse 108 H 04/26/25 18:31 Resp 20 04/26/25 18:31 BP 186/102 H 04/26/25 18:31 Pulse Ox 97 04/26/25 18:31 O2 Del Method Room Air 04/26/25 18:31 BMI result Body Mass Index 31.8 Appearance: Alert.?Oriented to person, place and time. No acute distress.?Normal affect. Eyes: Pupils equal, round and reactive to light.? ENT: Pharynx normal.?? Neck: Normal inspection.? Neck supple.?? CVS: Heart sounds normal. Normal heart rate and rhythm.? Pulses normal.?? Respiratory: No respiratory distress.? Lung sounds clear to auscultation bilaterally?? Abdomen: Soft and non-tender. Normoactive bowel sounds. Skin: Skin warm and dry.? Normal skin color.? Extremities: No lower extremity edema.? Neuro: Moves all extremities spontaneously. Sensation intact bilaterally. CN II- XII intact. No focal neuro deficits. Ambulates with normal steady gait. Course Reevaluation(s) Reevaluation #1: I just spoke with the Elvira from the care team, she assessed the patient. The patient is chronically suicidal and has chronic hallucinations. She is at her baseline, the patient admits she is at her baseline. That she always hears voices. The patient does not have a ride she will be held until the morning, when 1 of the nursing home staff members can come pick her up. Time: 20:34 Date: 04/26/25 Provider: TIMI Edwards Patient in physician observation for psychiatric evaluation.? No acute events reported overnight. No current complaints. VS stable.? Patient is in bed search status/pending CARE team evaluation. Will continue to monitor. Time: 20:33 Reevaluation #2: NowTime: 21:19 Date: 04/26/25 Provider: TIMI Edwards Physician observation ended at _[id number]____. Patient has been cleared for discharge by the CARE team. Will follow up as an outpatient. /Patient to be admitted as inpatient to psychiatry./Patient to be placed at a rehab facility. asking to leave, she does not want to wait, she wants to smoke, we will discharge now Time: 21:19 Medications Administered Discontinued Medications Generic Name Dose Route Start Last Admin Trade Name Elmer PRN Reason Stop Dose Admin Lorazepam 0.5 mg 04/26/25 18:26 04/26/25 18:36 Lorazepam 0.5 Mg Tablet PO 04/26/25 18:27 0.5 mg ONCE ONE Administration Medical Decision Making Medical Decision Making [facility] Narrative: Patient is a 49-year-old female with past medical history PTSD, borderline personality disorder, anxiety, diabetes, GERD who presents emergency department with SI, auditory and visual hallucinations as per HPI. No current self-harm, denies any potential overdose. She is not homicidal. States she has been compliant with her medications. Care team consultation has been ordered, basic labs for medical clearance. Differential Diagnosis Differential Diagnoses: The differential diagnosis associated with the presentation includes (See narrative above and below for further detail) Admission/Observation Consideration of admission/observation: Escalation of care including admission/observation considered Patient is being observed in the Emergency Department for suicidal ideation and hallucinations Observation time was started at 17:30 on 04/26/2025, pending care team evaluation.?The patient is currently stable and non-toxic appearing. Observation is being initiated in the Emergency Department to allow time to help differentiate if the patient's depression and anxiety is due to Substance Induced Mood Disorder and Anxiety versus Major Depressive Disorder, Bipolar Lupe, Bipolar Depression, and Schizophrenia. The patient will receive frequent psychiatric assessments from the provider as well as from nursing staff. Consult Healthcare Provider Management of the patient was discussed with: Behavioral Health Provider (CARE team) Lab Data [facility] Lab Attestation statement: I reviewed the patient's lab results. CBC versus anemia or thrombocytopenia. No electrolyte derangement. No KANNAN. Urinalysis concern for infection she is asymptomatic. Toxicology negative. 04/26/25 18:14 04/26/25 18:14 Labs: Lab Results 04/26/25 04/26/25 Range/Units 18:14 18:23 WBC 8.1 (4.8-10.8) X10*3/uL RBC 4.49 (4.20-5.50) X10*6/uL Hgb 13.7 (12.0-16.0) g/dl Hct 40.9 (37.0-47.0) % MCV 91.1 (80.0-98.0) fL MCH 30.5 (27.0-33.0) pg MCHC 33.5 (31.0-35.0) g/dl RDW 12.9 (11.0-16.0) % Plt Count 307 (160-400) X10*3/uL MPV 9.3 L (9.4-12.3) fL Immature Gran % (Auto) 0.5 H (0.0-0.4) % Neut % (Auto) 67.5 (45-73) % Lymph % (Auto) 19.7 L (20-40) % Dougherty % (Auto) 7.7 (2-11) % Eos % (Auto) 4.2 H (0-4) % Baso % (Auto) 0.4 (0-2) % Lymph # (Auto) 1.6 (1.2-4.9) X10*3/uL [place]herty # (Auto) 0.6 (0.1-1.2) X10*3/uL Eos # (Auto) 0.3 (0.0-0.4) X10*3/uL Baso # (Auto) 0.0 (0.0-0.2) X10*3/uL Abs Immat Gran (auto) 0.04 H (0.00-0.03) X10*3/uL Absolute Neuts (auto) 5.5 (2.0-8.3) x10*3/uL Absolute Nucleated RBC 0.000 (0.0-0.012) X10*3/uL Nucleated RBC % (auto) 0.0 (0.0-0.2) /100WBC Sodium 142 (135-145) mmol/L Potassium 3.6 (3.3-5.1) mmol/L Chloride 107 (96-108) mmol/L Carbon Dioxide 22 (22-29) mmol/L Anion Gap 17 (12-20) BUN 9 (9-16) mg/dL Creatinine 0.64 (0.5-1.4) mg/dL Estim Creat Clear Calc 113.8 Estimated GFR > 60 Random Glucose 156 H (60-115) mg/dL Calcium 9.3 D (8.4-10.2) mg/dL Total Bilirubin 0.2 (0.0-1.0) mg/dL AST 23 (5-31) U/L ALT 27 (0-31) U/L Alkaline Phosphatase 168 H (39-117) U/L Total Protein 7.5 (6.5-8.0) g/dL Albumin 4.9 (3.5-5.0) g/dL Urine Color Sutter A Urine Appearance Clear Urine pH 5.5 (5.0-9.0) Ur Specific [place] 1.010 (1.005-1.025) Urine Protein Negative (Neg-Trace) mg/dL Urine Glucose (UA) Negative (Negative) mg/dL Urine Ketones Negative (Negative) mg/dL Urine Blood Large (3+) H (Negative) Urine Nitrite Negative (Negative) Ur Leukocyte Esterase Trace H (Negative) Urine RBC >20 H (0-2) /HPF Urine WBC 6-10 H (0-5) /HPF Ur Squamous Epith Cells 0-2 (0-2) /HPF Urine Bacteria None Seen (None Seen) Hyaline Casts 0-2 (0-2) /LPF Salicylates < 5.0 L (15-30) mg/dL Urine Opiates Screen Not Detected (Not Detect) Ur Buprenorphine Scrn Not Detected (Not Detect) ng/mL Ur Oxycodone Screen Not Detected (Not Detect) ng/mL Urine Methadone Screen Not Detected (Not Detect) ng/mL Urine Fentanyl Screen Not Detected (Not Detect) Acetaminophen < 3 (<30) mcg/mL Ur Barbiturates Screen Not Detected (Not Detect) Ur Phencyclidine Scrn Not Detected (Not Detect) Ur Amphetamines Screen Not Detected (Not Detect) U Benzodiazepines Scrn Not Detected (Not Detect) Urine Cocaine Screen Not Detected (Not Detect) U Marijuana (THC) Screen Not Detected (Not Detect) Ethyl Alcohol < 10 mg/dL Independent Historian Clinical information obtained from an independent historian. History obtained from or confirmed by: EMS External Record Review External record reviewed: Outpatient record Discharge Plan Discharge Clinical Impression: Auditory hallucination, Suicide attempt Patient Disposition: Home, Self-Care Additional Instructions: Continue to follow up with your outpatient providers Prescriptions: No Action nystatin-triamcinolone 100,000-0.1 unit/g-% cream 1 appl topical BID Qty: 60 0RF butenafine [Lotrimin Ultra] 1 % cream 1 appl topical TID 28 Days Qty: 30 3RF fluoxetine 40 mg capsule 80 mg PO DAILY clozapine 100 mg tablet 200 mg PO BEDTIME amlodipine 5 mg tablet 5 mg PO DAILY albuterol sulfate 90 mcg/actuation HFA aerosol inhaler 2 puff inhalation Q6H PRN (Reason: Wheezing) prazosin 2 mg capsule 4 mg PO BEDTIME metformin 500 mg tablet 500 mg PO BID nicotine 21 mg/24 hr patch 24 hour 1 patch topical DAILY PRN (Reason: Nicotine Cravings) haloperidol 5 mg tablet 5 mg PO TID haloperidol 10 mg tablet 10 mg PO BEDTIME PRN (Reason: hallucinations) fluticasone propion-salmeterol 250-50 mcg/dose blister with device 1 ea inhalation BID Interventions: [place]-Suicide Risk Severity Scale Last Done: 04/26/25 16:56 Print Language: Georgian
[2025-04-26 18:20] LABS: MANUAL DIFF FLAG NO
[2025-04-26 18:28] LABS: Hematocrit 40.9 % (37.0-47.0); Hemoglobin 13.7 g/dl (12.0-16.0); Imm Gran Abs Auto 0.04 X10*3/uL (0.00-0.03); Imm Gran Pct Auto 0.5 % (0.0-0.4); Lymphocytes Absolute Auto 1.6 X10*3/uL (1.2-4.9); Mean Corpuscular HGB Conc 33.5 g/dl (31.0-35.0); Mean Corpuscular Hemoglobin 30.5 pg (27.0-33.0); Mean Corpuscular Volume 91.1 fL (80.0-98.0); NRBC Abs Auto 0.000 X10*3/uL (0.0-0.012); NRBC Pct Auto 0.0 /100WBC (0.0-0.2); Platelet Count 307 X10*3/uL (160-400); Red Blood Count 4.49 X10*6/uL (4.20-5.50); White Blood Count 8.1 X10*3/uL (4.8-10.8)
[2025-04-26 18:31] VITALS: BP 186/102; PULSE 108; RESP 20; TEMP 36.6; O2SAT 97
[2025-04-26 18:35] LABS: Appearance Urine Clear; Glucose Urine UA Negative (Negative); PH 5.5 (5.0-9.0); Specific Gravity - Urine 1.010 (1.005-1.025); UMIC TRIGGER UACC YES
[2025-04-26 18:36] LABS: UACC Culture Trigger YES
[2025-04-26 18:39] LABS: Alanine Aminotransferase 27 U/L (0-31); Albumin Level 4.9 g/dL (3.5-5.0); Alkaline Phosphatase 168 U/L (39-117); Anion Gap 17 (12-20); Aspartate Amino Transferase 23 U/L (5-31); Blood Urea Nitrogen 9 mg/dL (9-16); Calcium 9.3 mg/dL (8.4-10.2); Carbon Dioxide 22 mmol/L (22-29); Chloride 107 mmol/L (96-108); Creatinine Clr Calc Pharmacy 113.8; Estimated Glomerular Filt Rate > 60; Potassium 3.6 mmol/L (3.3-5.1); Sodium 142 mmol/L (135-145); Total Protein 7.5 g/dL (6.5-8.0)
[2025-04-26 18:40] LABS: Acetaminophen LAB < 3 mcg/mL (<30); Salicylate < 5.0 mg/dL (15-30)
[2025-04-26 18:40] LABS: Cannabinoid Screen Urine Not Detected (Not Detect)
[2025-04-26 21:24] VITALS: BP 133/70; PULSE 89; RESP 18; TEMP 36.7; O2SAT 98
[2025-04-26 21:31] VITALS: BP 133/70; PULSE 89; RESP 18; TEMP 36.7; O2SAT 98
--- NOTE | 2025-04-26 21:35 | PC.NURSE ---
belongings not logged in binder. returned to patient upon d/c
== END 2025-04-26 21:36 | disposition home or self-care (01) ==
PROVIDERS: Nurse Practitioner Family; Emergency Provider Emergency Medicine; PCP Nurse Practitioner Family
DX: R44.0 Auditory hallucinations (principal); R45.851 Suicidal ideations; F33.1 Major depressive disorder, recurrent, moderate; Z79.899 Other long term (current) drug therapy; F17.210 Nicotine dependence, cigarettes, uncomplicated; Z51.81 Encounter for therapeutic drug level monitoring
CPT/HCPCS: 36415; 80053; 80143; 80179; 80307; 81001; 85025; 87086; 99285; S9485

== ENCOUNTER 2025-04-26 23:30 | Emergency (ER) | payer MEDICARE, MEDICAID, SELFPAY ==
[2025-04-26 23:44] VITALS: BP 135/103; PULSE 107; RESP 16; TEMP 36.6; O2SAT 98; BMI 41.1
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
[2025-04-27 02:21] VITALS: BP 101/65; PULSE 90; TEMP 36.8; O2SAT 96
== END 2025-04-27 06:15 | disposition home or self-care (01) ==
PROVIDERS: Emergency Provider Emergency Medicine; PCP Nurse Practitioner Family
DX: R44.1 Visual hallucinations (principal); R45.851 Suicidal ideations; E11.9 Type 2 diabetes mellitus without complications; Z79.899 Other long term (current) drug therapy; F17.210 Nicotine dependence, cigarettes, uncomplicated
CPT/HCPCS: 99284

== ENCOUNTER 2025-05-20 15:01 | Outpatient (REF) | payer MEDICARE, MEDICAID, SELFPAY ==
[2025-05-20 15:13] LABS: MANUAL DIFF FLAG NO
--- OUTSIDE RECORDS SUMMARY | 2025-05-20 15:33 | XMS_ITS | Clinical Summary ---
Author Organization [facility] Address [address] [address] Phone Care Team Providers Care Spanish Professor Name Role Phone Maribel Marquez NP Primary Care Provider + Allergies Active Allergy Reactions Criticality Noted Date Comments Azithromycin 05/18/2023 Codeine 04/21/2009 Unknown reaction [place] Other (See Comments) 02/27/2013 pt reports 01/17/13 started taking lithium about a week ago. Nitrofurantoin Monohyd/M-Cryst 05/18/2023 Penicillins 08/01/2005 RXN UNKNOWN Prednisone 08/01/2005 RXN UNKNOWN Fish Derived Nausea And Vomiting,Wheezing Medium 11/14/2010 Sulfa (Sulfonamide Antibiotics) Other (See Comments) 04/21/2009 Unknown reaction Ziprasidone 07/11/2012 Pt cant describe exact reaction Medications VENTOLIN HFA 90 mcg/actuation inhaler Inhale 1 puff into the lungs every 4 (four) hours as needed. 3 Active atorvastatin (LIPITOR) 10 MG tablet Take 10 mg by mouth daily. 3 Active benztropine (COGENTIN) 1 MG tablet Take 1 mg by mouth 2 (two) times a day. 3 Active FLUoxetine (PROZAC) 40 MG capsule Take 80 mg by mouth every morning. 3 Active fluPHENAZine hydrochloride (PROLIXIN) 5 MG tablet Take 5 mg by mouth 2 (two) times a day. 3 Active hydrOXYzine (VISTARIL) 50 MG capsule Take 50 mg by mouth 3 (three) times a day as needed. 3 Active lisinopril (PRINIVIL,ZESTRIL) 5 MG tablet Take 5 mg by mouth daily. 3 Active metFORMIN (GLUCOPHAGE) 500 MG tablet Take 500 mg by mouth 2 (two) times a day. 3 Active mirtazapine (REMERON) 7.5 MG tablet Take 15 mg by mouth nightly at bedtime. 3 Active montelukast (SINGULAIR) 10 mg tablet Take 10 mg by mouth daily. 3 Active pantoprazole (PROTONIX) 20 MG tablet Take 40 mg by mouth daily. 3 Active prazosin (MINIPRESS) 2 MG capsule Take 4 mg by mouth nightly at bedtime. 3 Active traZODone (DESYREL) 150 MG tablet Take 150 mg by mouth nightly at bedtime. 3 Active Active Problems Problem Noted Date Diagnosed Date Chest pain 08/24/2024 Social History Tobacco Use Types Packs/Day Years Used Date Smoking Tobacco: Never Assessed Digital Access Answer Date Recorded No 05/18/2023 No 05/18/2023 Reliable internet access at home? Not on file 05/18/2023 Device with a working camera? Not on file Intimate Partner Violence Answer Date R ecorded Are you denied basic needs s uch as food, clothing, or medical care? No 08/24/2024 In the past 12 months have y ou been in a relationship with a person who hurts, threatens, or tries to control you? No 08/24/2024 Are you denied basic needs s uch as food, clothing, or medical care? No 08/24/2024 In the past 12 months have y ou been in a relationship with a person who hurts, threatens, or tries to control you? No 08/24/2024 Comments Unknown Sex and Gender Information Value Date Recorded Sex Assigned at Female 08/15/2024 10:59 AM EDT Legal Sex Female 9:25 PM EDT Gender Identity Female 08/15/2024 10:59 AM EDT Sexual Orientation Choose not to disclose 2023 10:59 AM EDT Last Filed Vital Signs Vital Sign Reading Time Taken Comments Blood Pressure 146/86 08/24/2024 8:29 PM EST Pulse 98 08/24/2024 8:29 PM EST Temperature 36.6 C (97.8 F) 08/24/2024 8:29 PM EST Respiratory Rate 18 08/24/2024 8:29 PM EST Oxygen Saturation 98% 08/24/2024 8:29 PM EST Inhaled Oxygen Concentration - - Weight 107 kg (236 lb) 08/15/2024 9:26 AM EDT Height 162.6 cm (5' 4 ) 08/24/2024 2:26 AM EST Body Mass Index 40.51 08/15/2024 9:26 AM EDT Plan of Treatment Health Maintenance Due Date Last Done Comments DEPRESSION SCREENING 1989 SMOKING Hx and SMOKELESS TOBACCO SCREENING 1990 HEPATITIS C SCREENING 1995 HIV ONE-TIME SCREENING (18-65 YEARS) 1995 LIPID PANEL 1995 PAP SMEAR 1998 MAMMOGRAM 2017 COLOGUARD 2022 COLONOSCOPY 2022 COLORECTAL CANCER SCREENING 2022 FIT TEST 2022 FOBT 2022 SIGMOIDOSCOPY 2022 VIRTUAL COLONOSCOPY 2022 COVID-19 VACCINE ( season) 2024 12/01/2020, 11/10/2020 CREATININE LEVEL 08/24/2025 08/24/2024, 10/2023, 08/15/2024, Additional history exists POTASSIUM LEVEL 08/24/2025 08/24/2024, 11/0 10/2023, 08/15/2024, Additional history exists SCREENING FOR DIABETES 05/18/2026 05/18/2023 Adult Td,Tdap Booster 05/29/2032 05/29/2022 , 04/20/2021, 08/31/2020, Additional history exists PNEUMOCOCCAL VACCINES (0-49 years) Aged Out 12/15/2013, 10/06/2010 No longer eligibl e based on patient's age to complete this topic HEPATITIS A VACCINES Aged Out No long er eligible based on patient's age to complete this topic HIB VACCINES Aged Out No longer eligi ble based on patient's age to complete this topic MENINGOCOCCAL VACCINES (ACWY) Aged Out No longer eligible based on patient's age to complete this topic MENINGOCOCCAL VACCINES (B) Aged Out N o longer eligible based on patient's age to complete this topic Medical Devices Not on file Procedures Procedure Name Priority Date/Time Associated Diagnosis Comments BASIC METABOLIC PANEL STAT 08/24/2024 3:05 AM EST from Last 3 Months or Most Recently Relevant to Health Maintenance Results * (ABNORMAL) Basic metabolic panel (08/24/2024 3:05 AM EST) SODIUM 140 136 - 145 mmol/L [facility] POTASSIUM 3.7 3.4 - 5.1 mmol/L [facility] CHLORIDE 102 98 - 107 mmol/L [facility] CO2 23 22 - 31 mmol/L [facility] BUN 12 6 - 23 mg/dL [facility] CREATININE 0.63 0.50 - 1.20 mg/dL [facility] GLUCOSE 160(H) 70 - 100 mg/dL [facility] CALCIUM 9.2 8.8 - 10.7 mg/dL [facility] EGFR 111 >59 mL/min/1.7 3m2 [facility] Comment:Estimated glomerular filtration rate calculated using the CKD-EPI refit equation. ANION GAP 15 7 - 17 mmol/L [facility] Blood 08/24/2024 3:05 AM EST 08/24/2024 3:15 AM EST Parvez Duenas MD, MPH LAB BLOOD ORDERABLES F inal Result Performing Organization Address City/State/[facility] de Phone Number [facility] [address] [place] [phone] from Last 3 Months or Most Recently Relevant [place] [id number] [facility] [place] [facility] PART A & [place] [id number] [place] [address] [place]IC[place] PART A & B [facility] MEDICARE PART A & B Care Teams Spanish Professor Relationship Specialty Start Date End Date Maribel Marquez NP [address] [place] [address] PCP - General Nurse Practitioner 04/02/24 Additional Source Comments The information contained in this document represents components of the legal health record. It is not the complete legal health record.[facility]
[2025-05-20 15:51] LABS: Hematocrit 36.8 % (37.0-47.0); Hemoglobin 12.7 g/dl (12.0-16.0); Imm Gran Abs Auto 0.08 X10*3/uL (0.00-0.03); Imm Gran Pct Auto 0.7 % (0.0-0.4); Lymphocytes Absolute Auto 1.9 X10*3/uL (1.2-4.9); Mean Corpuscular HGB Conc 34.5 g/dl (31.0-35.0); Mean Corpuscular Hemoglobin 31.2 pg (27.0-33.0); Mean Corpuscular Volume 90.4 fL (80.0-98.0); NRBC Abs Auto 0.000 X10*3/uL (0.0-0.012); NRBC Pct Auto 0.0 /100WBC (0.0-0.2); Platelet Count 307 X10*3/uL (160-400); Red Blood Count 4.07 X10*6/uL (4.20-5.50); White Blood Count 11.0 X10*3/uL (4.8-10.8)
== END 2025-05-20 15:02 | disposition home or self-care (01) ==
LOC: HO.LABR 15:01
DX: Z79.899 Other long term (current) drug therapy (principal)
CPT/HCPCS: 36415; 85025

== ENCOUNTER 2025-05-23 01:24 | Emergency (ER) | payer MEDICARE, MEDICAID, SELFPAY ==
[2025-05-23 01:36] VITALS: BP 142/91; PULSE 122; RESP 19; TEMP 36.7; O2SAT 95; BMI 44.6
--- NOTE | 2025-05-23 02:25 | ED.PSYCH ---
HPI - Psych General Chief Complaint: Psychiatric Symptoms Stated Complaint: Hearing voices Time Seen by Provider: 05/23/25 01:34 Source: patient and EMS Mode of arrival: EMS Limitations: no limitations History of Present Illness ED Provider: Dr. Eileen Ryan HPI Narrative: Patient comes to the emergency room fimbriae come via ambulance. Patient states that she is having auditory hallucinations, the voices are telling her to cut herself all over her body. Patient states that she has been trying to use her coping skills, but has been unsuccessful today. Patient isn't endorsing vague SI. Denies HI. Patient states that she is compliant with her medications. Related Data Home Medications ?Medication ?Instructions ?Recorded ?Confirmed albuterol sulfate 90 mcg/actuation 2 puff inhalation Q6H PRN Wheezing 06/24/24 05/23/25 aerosol inhaler amlodipine 5 mg tablet 5 mg PO DAILY 06/24/24 05/23/25 clozapine 100 mg tablet 200 mg PO BEDTIME 06/24/24 05/23/25 fluoxetine 40 mg capsule 80 mg PO DAILY 06/24/24 05/23/25 prazosin 2 mg capsule 4 mg PO BEDTIME 06/24/24 05/23/25 metformin 500 mg tablet 500 mg PO BID 07/15/24 05/23/25 haloperidol 10 mg tablet 10 mg PO BEDTIME PRN hallucinations 01/10/25 05/23/25 haloperidol 5 mg tablet 5 mg PO TID 01/10/25 05/23/25 atorvastatin 10 mg tablet 10 mg PO DAILY 05/23/25 05/23/25 docusate sodium 100 mg capsule 100 mg PO BID 05/23/25 05/23/25 ferrous sulfate 325 mg (65 mg 325 mg PO BID 05/23/25 05/23/25 iron) tablet fluticasone fur. 200 mcg-umeclid 1 ea inhalation DAILY 05/23/25 05/23/25 62.5 mcg-vilant 25 mcg inhalat.powder (Trelegy Ellipta) glycopyrrolate 1 mg tablet 1 mg PO BID 05/23/25 05/23/25 ibuprofen 600 mg tablet 600 mg PO Q6H PRN Mild Pain (Scale 05/23/25 05/23/25 Score 1-4) lorazepam 0.5 mg tablet 0.5 mg PO BID 05/23/25 05/23/25 mirtazapine 15 mg tablet 15 mg PO BEDTIME 05/23/25 05/23/25 montelukast 10 mg tablet 10 mg PO DAILY 05/23/25 05/23/25 Allergies Allergy/AdvReac Type Severity Reaction Status Date / Time azithromycin (AZITHROMYCIN) Allergy Severe Rash Verified 05/23/25 01:41 Fish Containing Products Allergy Severe Anaphylaxis Verified 05/23/25 01:41 codeine (Codeine) Allergy Intermediate Rash Verified 05/23/25 01:41 Penicillins Allergy Intermediate Rash Verified 05/23/25 01:41 prednisone (Prednisone) Allergy Intermediate Rash Verified 05/23/25 01:41 Sulfa (Sulfonamide Allergy Intermediate Rash Verified 05/23/25 01:41 Antibiotics) (Sulfa (Sulfonamides)) ziprasidone (From Geodon) Allergy Intermediate dysuria, Verified 05/23/25 01:41 rash lithium Allergy Unknown Rash Verified 05/23/25 01:41 Review of Systems Review of Systems: Constitutional : No Weight loss, No Fever, No Chills, No Night Sweats, No Fatigue, No Malaise ENT/Mouth : No Hearing loss, No Ear Pain, No Nasal Congestion, No Sinus Pain, No Hoarseness, No sore throat, No Rhinorrhea, No Swallowing Difficulty Eyes: No Eye Pain, No Swelling, No Redness, No Foreign Body, No Discharge, No Vision Changes Cardiovascular : No Chest Pain, No SOB, No Dyspnea on Exertion, No Orthopnea, No Edema, No Palpitations Respiratory : No Cough, No Sputum, No Wheezing, No Smoke Exposure, No Dyspnea Gastrointestinal : No Nausea, No Vomiting, No Diarrhea, No Constipation, No abdominal Pain, No Hematochezia, No Melena Genitourinary : no irregular bleeding, No Dysuria, No Urinary Frequency, No Hematuria, No Urinary Incontinence, No Urgency, No Flank Pain, No Urinary Flow Changes, No Hesitancy Musculoskeletal : No joint pain, No Myalgias, No Joint Swelling Skin : No Skin Lesions, No rash Neuro : No Weakness, No Numbness, No Paresthesias, No Loss of Consciousness, No Dizziness, No Headache Psych : Patient complaining of anxiety, states that she is hearing voices telling her to kill herself, SI, no HI Heme/Lymph: No Bruising, No Bleeding,No Lymphadenopathy Endocrine : No Polyuria, No Polydipsia, No Temperature Intolerance PMFSH Past Medical History Medical History Asthma Suicidal ideation MDD (major depressive disorder), recurrent episode, severe Chest pain Acute anxiety COVID-19 Full body hives Major depression Dizziness Suicide attempt UTI (urinary tract infection) Acetaminophen overdose COVID History of attempted suicide History of non-suicidal self-harm Hypomagnesemia Suicide attempt Suicide attempt by acetaminophen overdose Acetaminophen overdose Depression Diabetes type 2, controlled Borderline personality disorder PTSD (post-traumatic stress disorder) Overdose GERD (gastroesophageal reflux disease) Mood disorder Hyperlipidemia Bronchitis Social History Social History Household Members: Other Household Members Other:: [facility] members Housing: Other Housing Other:: [facility] Do you presently have visiting nurse or other home services: No Unable to assess alcohol history related to: Unknown Alcohol intake: never Comment: sitter in room Patient Tobacco Use Status: Current everyday Tobacco user Tobacco use type: Cigarette Cigarette Packs Per Day: 1 Cigarettes Per Day: 20.0 Years Smoked: 10 e-Cigarette/Vaping Use: Never Used Second Hand Smoke Exposure: No Substance Use Type: Caffiene Advance Directives: No Advance Directives Information Provided: Yes Patient : No service: No Current occupational status: unemployed and disabled Sexual orientation: Straight/Heterosexual Physical Exam Exam: Exam: Appearance: Alert. Oriented X3. No acute distress. Eyes: Pupils equal, round and reactive to light. ENT: Pharynx normal. Neck: Normal inspection. Neck supple. No lymph nodes noted. No crepitus CVS: Normal heart rate and rhythm. Pulses normal. Normal S1 and S2 Respiratory: No respiratory distress. Breath sounds normal. No Wheezing. No rales Abdomen: Soft and nontender. No rigidity. No distention. Skin: Skin warm and dry. Normal skin color. Normal skin turgor. Patient has numerous old scarred cuts in both forearms. There are very few new superficial scratches, no bleeding Extremities: No lower extremity edema. No Lacerations. No Rash Neuro: Oriented X 3. No motor deficit. No sensory deficit. Moving all extremities. No slurred speech. CN 2 through 12 grossly intact Psych: calm, cooperative, a bit anxious Vital Signs: Vital Signs: Last Vital Signs Temp 97.9 F 05/23/25 06:00 Pulse 105 H 05/23/25 06:00 Resp 17 05/23/25 06:00 BP 135/88 05/23/25 06:00 Pulse Ox 96 05/23/25 06:00 O2 Del Method Room Air 05/23/25 06:00 BMI result Body Mass Index 44.6 Course Course Course Narrative: Patient very well known to the emergency department service All of patient's labs pending Care team consult pending Physician observation started at 01:57 Reevaluation(s) Reevaluation #1: Time: 06:32 Date: 05/23/25 Provider: Raymond Contreras MD Patient in physician observation for psychiatric evaluation.? No acute events reported overnight. No current complaints. VS stable.? Patient is pending CARE team evaluation. Will continue to monitor. Time: 12:18 Date: 05/23/25 Provider: Raymond Contreras MD Physician observation ended at 12:18 hours. Patient was evaluated by the CARE team who felt that the patient did not meet inpatient criteria therefore she will be discharged back to her [facility]. Medical Decision Making Differential Diagnosis Differential Diagnoses: The differential diagnosis associated with the presentation includes (Anxiety, depression, schizophrenia) Admission/Observation Consideration of admission/observation: Escalation of care including admission/observation considered (Care team consult pending to determine patient's disposition) Lab Data 05/23/25 02:35 05/23/25 02:35 Labs: Lab Results 05/23/25 Range/Units 02:35 WBC 8.4 (4.8-10.8) X10*3/uL RBC 3.88 L (4.20-5.50) X10*6/uL Hgb 11.9 L (12.0-16.0) g/dl Hct 35.4 L (37.0-47.0) % MCV 91.2 (80.0-98.0) fL MCH 30.7 (27.0-33.0) pg MCHC 33.6 (31.0-35.0) g/dl RDW 13.0 (11.0-16.0) % Plt Count 264 (160-400) X10*3/uL MPV 9.0 L (9.4-12.3) fL Immature Gran % (Auto) 1.1 H (0.0-0.4) % Neut % (Auto) 62.6 (45-73) % Lymph % (Auto) 22.8 (20-40) % Rock % (Auto) 8.6 (2-11) % Eos % (Auto) 4.4 H (0-4) % Baso % (Auto) 0.5 (0-2) % Lymph # (Auto) 1.9 (1.2-4.9) X10*3/uL [place] # (Auto) 0.7 (0.1-1.2) X10*3/uL Eos # (Auto) 0.4 (0.0-0.4) X10*3/uL Baso # (Auto) 0.0 (0.0-0.2) X10*3/uL Abs Immat Gran (auto) 0.09 H (0.00-0.03) X10*3/uL Absolute Neuts (auto) 5.2 (2.0-8.3) x10*3/uL Absolute Nucleated RBC 0.000 (0.0-0.012) X10*3/uL Nucleated RBC % (auto) 0.0 (0.0-0.2) /100WBC Sodium 141 (135-145) mmol/L Potassium 3.6 (3.3-5.1) mmol/L Chloride 106 (96-108) mmol/L Carbon Dioxide 22 (22-29) mmol/L Anion Gap 17 (12-20) BUN 7 L (9-16) mg/dL Creatinine 0.63 (0.5-1.4) mg/dL Estim Creat Clear Calc 139.4 Estimated GFR > 60 Random Glucose 202 H (60-115) mg/dL Calcium 8.9 (8.4-10.2) mg/dL Total Bilirubin 0.2 (0.0-1.0) mg/dL Direct Bilirubin < 0.2 (0.0-0.5) mg/dL AST 31 (5-31) U/L ALT 29 (0-31) U/L Alkaline Phosphatase 157 H (39-117) U/L Total Protein 6.5 (6.5-8.0) g/dL Albumin 4.3 (3.5-5.0) g/dL Salicylates < 5.0 L (15-30) mg/dL Urine Opiates Screen Not Detected (Not Detect) Ur Buprenorphine Scrn Not Detected (Not Detect) ng/mL Ur Oxycodone Screen Not Detected (Not Detect) ng/mL Urine Methadone Screen Not Detected (Not Detect) ng/mL Urine Fentanyl Screen Not Detected (Not Detect) Acetaminophen < 3 (<30) mcg/mL Ur Barbiturates Screen Not Detected (Not Detect) Ur Phencyclidine Scrn Not Detected (Not Detect) Ur Amphetamines Screen Not Detected (Not Detect) U Benzodiazepines Scrn Not Detected (Not Detect) Urine Cocaine Screen Not Detected (Not Detect) U Marijuana (THC) Screen Not Detected (Not Detect) Ethyl Alcohol < 10 mg/dL Critical Care Time Critical Care Time Critical Care Time: Yes Total Critical Care Time: 35 Attestation: I have personally provided critical care time. Time includes review of lab data, radiology results, discussion with consultants, and monitoring for potential decompensation. Intervention performed as documented. Discharge Plan Discharge Clinical Impression: Suicidal ideation, Anxiety, Abrasion Patient Disposition: Home, Self-Care Additional Instructions: Your evaluated by the care team and they felt that at this time you did not require inpatient level of care. Please follow their instructions Continue taking medications as prescribed by your providers You were seen in our Emergency Department today for treatment of a behavioral health issue. It is important after your visit that you follow up with either your behavioral health provider or a primary care doctor within 7 days.? If you have trouble finding a therapist you can reach out to [address] [phone] The National Suicide and Crisis Lifeline can be reached 7 days a week 24 hours a day.? Call 988 to speak with someone.? Return for any worsening symptoms or concerns such as thoughts of self harm or harm to others. Please call 911 if you feel your mental health is worsening.? Prescriptions: No Action glycopyrrolate 1 mg tablet 1 mg PO BID atorvastatin 10 mg tablet 10 mg PO DAILY lorazepam 0.5 mg tablet 0.5 mg PO BID Rx Instructions: Take 1 tablet at 9am and 1 tablet at 4pm ferrous sulfate 325 mg (65 mg iron) tablet 325 mg PO BID docusate sodium 100 mg capsule 100 mg PO BID montelukast 10 mg tablet 10 mg PO DAILY mirtazapine 15 mg tablet 15 mg PO BEDTIME ibuprofen 600 mg tablet 600 mg PO Q6H PRN (Reason: Mild Pain (Scale Score 1-4)) Trelegy Ellipta 200-62.5-25 mcg blister with device 1 ea inhalation DAILY fluoxetine 40 mg capsule 80 mg PO DAILY clozapine 100 mg tablet 200 mg PO BEDTIME amlodipine 5 mg tablet 5 mg PO DAILY albuterol sulfate 90 mcg/actuation HFA aerosol inhaler 2 puff inhalation Q6H PRN (Reason: Wheezing) prazosin 2 mg capsule 4 mg PO BEDTIME metformin 500 mg tablet 500 mg PO BID haloperidol 5 mg tablet 5 mg PO TID haloperidol 10 mg tablet 10 mg PO BEDTIME PRN (Reason: hallucinations) Interventions: [place]-Suicide Risk Severity Scale Last Done: 05/23/25 01:47 Print Language: Burkinan
--- NOTE | 2025-05-23 02:40 | PC.NURSE ---
pt calm and cooperative, changed over by EDT and security, belongings searched by security and secured. pt has sitter in place.
[2025-05-23 02:41] LABS: Hematocrit 35.4 % (37.0-47.0); Hemoglobin 11.9 g/dl (12.0-16.0); Imm Gran Abs Auto 0.09 X10*3/uL (0.00-0.03); Imm Gran Pct Auto 1.1 % (0.0-0.4); Lymphocytes Absolute Auto 1.9 X10*3/uL (1.2-4.9); MANUAL DIFF FLAG NO; Mean Corpuscular HGB Conc 33.6 g/dl (31.0-35.0); Mean Corpuscular Hemoglobin 30.7 pg (27.0-33.0); Mean Corpuscular Volume 91.2 fL (80.0-98.0); NRBC Abs Auto 0.000 X10*3/uL (0.0-0.012); NRBC Pct Auto 0.0 /100WBC (0.0-0.2); Platelet Count 264 X10*3/uL (160-400); Red Blood Count 3.88 X10*6/uL (4.20-5.50); White Blood Count 8.4 X10*3/uL (4.8-10.8)
[2025-05-23 02:54] LABS: Cannabinoid Screen Urine Not Detected (Not Detect)
[2025-05-23 02:59] LABS: Alanine Aminotransferase 29 U/L (0-31); Albumin Level 4.3 g/dL (3.5-5.0); Alkaline Phosphatase 157 U/L (39-117); Anion Gap 17 (12-20); Aspartate Amino Transferase 31 U/L (5-31); Blood Urea Nitrogen 7 mg/dL (9-16); Calcium 8.9 mg/dL (8.4-10.2); Carbon Dioxide 22 mmol/L (22-29); Chloride 106 mmol/L (96-108); Creatinine Clr Calc Pharmacy 139.4; Estimated Glomerular Filt Rate > 60; Potassium 3.6 mmol/L (3.3-5.1); Sodium 141 mmol/L (135-145); Total Protein 6.5 g/dL (6.5-8.0)
[2025-05-23 03:17] LABS: Acetaminophen LAB < 3 mcg/mL (<30); Salicylate < 5.0 mg/dL (15-30)
[2025-05-23 06:00] VITALS: BP 135/88; PULSE 105; RESP 17; TEMP 36.6; O2SAT 96
--- NOTE | 2025-05-23 07:41 | PC.NURSE ---
Assumed care of patient at 0715, patient moved from ED to pod, now resting on couch in 7. Continue plan of care for CARE team gigi
--- NOTE | 2025-05-23 11:53 | PC.NURSE ---
Re: med rec This RN completed med rec by utilizing medical record history as well as speaking to a pharmacist at [facility]. This RN spoke with patient to verify dates last taken
--- NOTE | 2025-05-23 12:23 | PHA.MEDREC ---
Pharmacy Consult ? Medication Reconciliation Pharmacy has completed the medication reconciliation. Checked med rec done by nursing
[2025-05-23 12:45] VITALS: BP 160/94; PULSE 101; RESP 16; TEMP 37.1; O2SAT 96
[2025-05-23 12:54] VITALS: BP 182/102; PULSE 110; RESP 19; TEMP 36.9; O2SAT 97
== END 2025-05-23 13:07 | disposition home or self-care (01) ==
PROVIDERS: Emergency Provider Emergency Medicine
DX: F41.9 Anxiety disorder, unspecified (principal); R45.851 Suicidal ideations; R44.0 Auditory hallucinations; F43.12 Post-traumatic stress disorder, chronic; F60.3 Borderline personality disorder; F31.9 Bipolar disorder, unspecified; E11.9 Type 2 diabetes mellitus without complications; I10 Essential (primary) hypertension; E78.5 Hyperlipidemia, unspecified; D64.9 Anemia, unspecified; K21.9 Gastro-esophageal reflux disease without esophagitis; J45.909 Unspecified asthma, uncomplicated; E66.9 Obesity, unspecified; Z68.41 Body mass index [BMI] 40.0-44.9, adult; F17.210 Nicotine dependence, cigarettes, uncomplicated; Z91.51 Personal history of suicidal behavior; Z79.899 Other long term (current) drug therapy; Z79.84 Long term (current) use of oral hypoglycemic drugs
CPT/HCPCS: 36415; 80048; 80076; 80143; 80179; 80307; 85025; 99285; S9485

== ENCOUNTER 2025-05-25 19:23 | Inpatient (IN) | payer MEDICARE, MEDICAID, SELFPAY ==
[2025-05-25 19:34] VITALS: BP 162/74; PULSE 103; O2SAT 96
[2025-05-25 19:56] VITALS: BP 132/89; PULSE 120; RESP 18; TEMP 36.6; BMI 42.9
[2025-05-25 21:43] LABS: Anion Gap 20 (12-20); Blood Urea Nitrogen 8 mg/dL (9-16); Calcium 9.0 mg/dL (8.4-10.2); Carbon Dioxide 20 mmol/L (22-29); Chloride 105 mmol/L (96-108); Creatinine Clr Calc Pharmacy 140.7; Estimated Glomerular Filt Rate > 60; Potassium 3.8 mmol/L (3.3-5.1); Sodium 141 mmol/L (135-145)
[2025-05-25 21:57] LABS: Resp Syncy Virus RNA Qual PCR NEGATIVE (Negative); SARS COV2 PCR INHOUSE NEGATIVE (Negative)
[2025-05-25 21:58] LABS: Appearance Urine Clear; Glucose Urine UA Negative (Negative); PH 5.5 (5.0-9.0); Specific Gravity - Urine <= 1.005 (1.005-1.025); UMIC TRIGGER UACC YES
[2025-05-25 22:15] VITALS: BP 127/77; PULSE 114; RESP 16; TEMP 36.8; O2SAT 95
[2025-05-25 22:26] LABS: Cannabinoid Screen Urine Not Detected (Not Detect)
[2025-05-26 00:19] VITALS: BP 134/80; PULSE 115; RESP 18; O2SAT 96
[2025-05-26 01:00] LABS: Hematocrit 35.9 % (37.0-47.0); Hemoglobin 12.3 g/dl (12.0-16.0); Imm Gran Abs Auto 0.05 X10*3/uL (0.00-0.03); Imm Gran Pct Auto 0.5 % (0.0-0.4); Lymphocytes Absolute Auto 2.1 X10*3/uL (1.2-4.9); Mean Corpuscular HGB Conc 34.3 g/dl (31.0-35.0); Mean Corpuscular Hemoglobin 31.4 pg (27.0-33.0); Mean Corpuscular Volume 91.6 fL (80.0-98.0); NRBC Abs Auto 0.000 X10*3/uL (0.0-0.012); NRBC Pct Auto 0.0 /100WBC (0.0-0.2); Platelet Count 284 X10*3/uL (160-400); Red Blood Count 3.92 X10*6/uL (4.20-5.50); White Blood Count 9.2 X10*3/uL (4.8-10.8)
[2025-05-26 01:33] LABS: MANUAL DIFF FLAG NO
--- NOTE | 2025-05-26 02:23 | PC.NURSE ---
Pt sitting on edge of bed, states I feel like I'm going to have a panic attack. Pt given verbal reassurance, assisted back into bed. Plan to discuss with .
--- NOTE | 2025-05-26 02:33 | ED_ITS ---
HPI - Psych General Chief Complaint: Psychiatric Symptoms Stated Complaint: HEARING VOICES Time Seen by Provider: 05/26/25 02:33 Source: patient Mode of arrival: ambulatory Limitations: no limitations History of Present Illness ED Provider: Dr. Ary Genao HPI Narrative: 49-year-old female very well known to this emergency department with a history of PTSD, depression, GERD, type 2 diabetes borderline personality disorder, chronic auditory and visual hallucinations, chronic suicidal ideation, presenting with continued suicidal thoughts. Plan to overdose on medications. Denies self-harm. No specific triggers. Was last seen in this emergency department 2 days ago for the same. Reports that there are voices telling her to harm herself. No homicidal ideations. No alcohol or drug use. Related Data Home Medications ?Medication ?Instructions ?Recorded ?Confirmed albuterol sulfate 90 mcg/actuation 2 puff inhalation Q 6H PRN Wheezing 06/24/24 05/26/25 aerosol inhaler amlodipine 5 mg tablet 5 mg PO DAILY 06/24/2405/26 clozapine 100 mg tablet 200 mg PO BEDTIME 06/24/24 0 05/26/25 fluoxetine 40 mg capsule 80 mg PO DAILY 06/24/2405/15 prazosin 2 mg capsule 4 mg PO BEDTIME 06/24/2410/08 metformin 500 mg tablet 500 mg PO BID 07/15/2405/26 haloperidol 10 mg tablet 10 mg PO BEDTIME hallucinati ons 01/10/25 05/26/25 haloperidol 5 mg tablet 5 mg PO BID@0900,1600 05/26/25 atorvastatin 10 mg tablet 10 mg PO DAILY 05/23/2505/15 docusate sodium 100 mg capsule 100 mg PO BID 05/23/25 05/26/25 ferrous sulfate 325 mg (65 mg 325 mg PO BID 05/23/25 0 05/26/25 iron) tablet fluticasone fur. 200 mcg-umeclid 1 ea inhalation DAILY 05/23/25 05/26/25 62.5 mcg-vilant 25 mcg inhalat.powder (Trelegy Ellipta) glycopyrrolate 1 mg tablet 1 mg PO BID 05/23/25 ibuprofen 600 mg tablet 600 mg PO Q6H PRN Mild Pain (Scale 05/23/25 05/26/25 Score 1-4) lorazepam 0.5 mg tablet 0.5 mg PO BID 05/23/2505/26 mirtazapine 15 mg tablet 15 mg PO BEDTIME 05/23/25 montelukast 10 mg tablet 10 mg PO DAILY 05/23/2505/15 Allergies Allergy/AdvReac Type Severity Reaction Status Date / Time azithromycin (AZITHROMYCIN) Allergy Severe Rash Verified 05/25/25 19:58 Fish Containing Products Allergy Severe Anaphylaxis Verified 05/25/25 19:58 codeine (Codeine) Allergy Intermediate Rash Verified 05/25/25 19:58 Penicillins Allergy Intermediate Rash Verified 05/25/25 19:58 prednisone (Prednisone) Allergy Intermediate Rash Verified 05/25/25 19:58 Sulfa (Sulfonamide Allergy Intermediate Rash Verified 05/25/25 19:58 Antibiotics) (Sulfa (Sulfonamides)) ziprasidone (From Geodon) Allergy Intermediate dysuria, Verified 05/25/25 19:58 rash lithium Allergy Unknown Rash Verified 05/25/25 19:58 Review of Systems 2 Review of Systems: As per HPI, full review of systems performed and negative but for the above mentioned pertinent positives and negatives. FOR[facility]LY [facility], [facility] Past Medical History Attestation statement: The following information was validated with the patient. [facility], [facility] Narrative: PTSD, depression, GERD, type 2 diabetes borderline personality disorder, chronic auditory and visual hallucinations, chronic suicidal ideation, was in a detention Medical History Asthma Suicidal ideation MDD (major depressive disorder), recurrent episode, severe Chest pain Acute anxiety COVID-19 Full body hives Major depression Dizziness Suicide attempt UTI (urinary tract infection) Acetaminophen overdose COVID History of attempted suicide History of non-suicidal self-harm Hypomagnesemia Suicide attempt Suicide attempt by acetaminophen overdose Acetaminophen overdose Depression Diabetes type 2, controlled Borderline personality disorder PTSD (post-traumatic stress disorder) Overdose GERD (gastroesophageal reflux disease) Mood disorder Hyperlipidemia Bronchitis Social History Social History Household Members: Other Household Members Other:: detention members Housing: Other Housing Other:: detention Do you presently have visiting nurse or other home services: No Unable to assess alcohol history related to: Refusing to respond Alcohol intake: never Comment: sitter in room Patient Tobacco Use Status: Current everyday Tobacco user Tobacco use type: Cigarette Cigarette Packs Per Day: 1 Cigarettes Per Day: 20.0 Years Smoked: 10 e-Cigarette/Vaping Use: Never Used Second Hand Smoke Exposure: No Use of substances other than those prescribed or required for medical reasons: Refusing to respond Substance Use Type: Caffiene Advance Directives: No Advance Directives Information Provided: Yes Do you have a plan to hurt others: Vague Patient : No service: No Current occupational status: unemployed and disabled Sexual orientation: Straight/Heterosexual Physical Exam 2 Exam: Exam: GENERAL: Well-Appearing, conversant, no acute distress. SKIN: Normal skin color for ethnicity, warm, dry, no rashes noted, well healed scars with the bilateral forearms from previous self-injurious behavior. HEENT: Normocephalic, atraumatic, no stridor, posterior oropharynx nonerythematous, dentition intact, EOMI. NECK: Soft, supple, full ROM, midline structures nontender, no step-offs, no deformities, no lymphadenopathy. CHEST: Heart regular rate and rhythm, no murmurs, symmetric chest rise and fall. PULMONARY: Clear to auscultation bilaterally, no labored breathing, no wheezes/rhales/rhonchi. ABDOMINAL: Soft, nondistended, nontender, positive bowel sounds in all quadrants. : Deferred. MUSCULOSKELETAL: Normal tone, full range of motion, no deformities, no peripheral edema. NEURO: Alert and oriented x3, CN II through XII intact, equal strength and sensation bilateral upper and lower extremities, no focal neurologic deficits. PSYCHIATRIC: Normal affect, fluid speech, good eye contact and appropriate demeanor. Vital Signs: Vital Signs: Last Vital Signs Temp 97.6 F 05/27/25 10:06 Pulse 112 H 05/27/25 10:06 Resp 18 05/27/25 10:06 BP 172/107 H 05/27/25 10:06 Pulse Ox 95 05/27/25 10:06 O2 Del Method Room Air 05/27/25 10:06 BMI result Body Mass Index 42.9 Course Reevaluation(s) Reevaluation #1: Time: 14:33 Date: 05/26/25 Provider: Kingsley Larson MD Patient in physician observation for psychiatric evaluation.? No acute events reported overnight. No current complaints. VS stable.? Patient is in bed search status/pending CARE team evaluation. Will continue to monitor. Reevaluation #2: Time: 08:42 Date: 05/27/25 Provider: Lidia Hernandez DO Patient in physician observation for psychiatric evaluation.? No acute events reported overnight. No current complaints. VS stable.? Pending CARE team evaluation. Will continue to monitor. Reevaluation #3: Time: 11:24 Date: 05/27/25 Provider: Lidia Hernandez DO Physician observation ended at 1124am. Patient to be admitted as inpatient to psychiatry. Medications Administered Generic Name Dose Route Start Last Admin Trade Name Freq PRN Reason Stop Dose Admin Albuterol Sulfate 2 puff 05/26/25 08:02 05/27/25 10:04 Albuterol Sulfate 90 Mcg 8 Gm Inhaler INHALE 2 puff Q6H PRN Administration Wheezing Amlodipine Besylate 5 mg 05/26/25 09:00 05/27/25 10:05 Amlodipine Besylate 5 Mg Tablet PO 5 mg DAILY YULY Administration Protocol Atorvastatin Calcium 10 mg 05/26/25 09:00 05/27/25 10:05 Atorvastatin Calcium 10 Mg Tablet PO 10 mg DAILY YULY Administration Clozapine 200 mg 05/26/25 21:00 05/26/25 20:41 Clozapine 100 Mg Tablet PO 200 mg BEDTIME YULY Administration Docusate Sodium 100 mg 05/26/25 09:00 05/27/25 10:11 Docusate Sodium 100 Mg Capsule PO 100 mg BID YULY Administration Ferrous Sulfate 324 mg 05/26/25 09:00 05/27/25 10:05 Ferrous Sulfate 324 Mg Tablet. PO 324 mg BID YULY Administration Fluoxetine HCl 80 mg 05/26/25 10:45 05/27/25 10:06 Fluoxetine Hcl 20 Mg Capsule PO 80 mg DAILY YULY Administration Fluticasone/Umeclidinium/Vilanterol 1 puff 05/26/25 08:45 05/27/25 10:04 Fluticasone/Umeclidinium/Vilanterol 200/62.03/08 Blst.W.Dev INHALE 1 puff RDAILY YULY Administration Glycopyrrolate 1 mg 05/26/25 09:00 05/27/25 10:05 Glycopyrrolate 1 Mg Tablet PO 1 mg BID YULY Administration Haloperidol 5 mg 05/26/25 10:45 05/27/25 10:06 Haloperidol 5 Mg Tablet PO 5 mg BID@0900,1600 YULY Administration Haloperidol 10 mg 05/26/25 21:00 05/26/25 20:41 Haloperidol 5 Mg Tablet PO 10 mg BEDTIME YULY Administration Lorazepam 0.5 mg 05/26/25 09:00 05/27/25 10:05 Lorazepam 0.5 Mg Tablet PO 0.5 mg BID YULY Administration Metformin HCl 500 mg 05/26/25 09:00 05/27/25 10:09 Metformin Hcl 500 Mg Tablet PO 500 mg BID YULY Administration Mirtazapine 15 mg 05/26/25 21:00 05/26/25 20:41 Mirtazapine 15 Mg Tablet PO 15 mg BEDTIME YULY Administration Montelukast Sodium 10 mg 05/26/25 09:00 05/27/25 10:09 Montelukast Sodium 10 Mg Tablet PO 10 mg DAILY YULY Administration Prazosin HCl 4 mg 05/26/25 21:00 05/26/25 20:40 Prazosin Hcl 1 Mg Capsule PO 4 mg BEDTIME YULY Administration Protocol Discontinued Medications Generic Name Dose Route Start Last Admin Trade Name Freq PRN Reason Stop Dose Admin Albuterol Sulfate 2 puff 05/26/25 20:53 05/26/25 21:00 Albuterol Sulfate 90 Mcg 8 Gm Inhaler INHALE 05/26/25 20:54 2 puff ONCE ONE Administration Alprazolam 0.25 mg 05/26/25 21:12 05/27/25 05:02 Alprazolam 0.25 Mg Tablet PO 05/26/25 21:13 Not Given ONCE ONE Lorazepam 1 mg 05/26/25 03:46 05/26/25 04:11 Lorazepam 1 Mg Tablet PO 05/26/25 03:47 1 mg ONCE ONE Administration Lorazepam 2 mg 05/26/25 12:10 05/26/25 12:15 Lorazepam 1 Mg Tablet PO 05/26/25 12:11 2 mg ONCE ONE Administration Nicotine 14 mg 05/26/25 03:09 05/26/25 03:27 Nicotine 14 Mg Patch.Td24 TRANSDERMA 05/26/25 03:10 14 mg ONCE ONE Administration Olanzapine 5 mg 05/26/25 14:31 05/26/25 14:36 Olanzapine 5 Mg Tablet PO 08/12/25 14:32 5 mg ONCE ONE Administration Medical Decision Making Medical Decision Making MDM Narrative: Patient presents with psychologic complaints. Differential diagnosis includes suicidal ideations, homicidal ideations, depression, anxiety, mood disorder, decompensated mental illnesses such as schizophrenia or bipolar disorder, medication noncompliance, among many others. Medical clearance protocol was initiated. Patient was evaluated by [facility], recommend inpatient treatment unless the patient is able to endorse resolution of suicidal ideation. She would be stable to return to her detention should her ideations improved. Differential Diagnosis Differential Diagnoses: The differential diagnosis associated with the presentation includes (As above) Admission/Observation Consideration of admission/observation: Escalation of care including admission/observation considered Consult Healthcare Provider Management of the patient was discussed with: Behavioral Health Provider Lab Data [facility] Lab Attestation statement: I reviewed the patient's lab results. 05/26/25 00:52 05/27/25 09:27 Labs: Lab Results 05/25/25 05/26/25 05/27/25 Range/Units 21:04 00:52 09:27 WBC 9.2 (4.8-10.8) X10*3/uL RBC 3.92 L (4.20-5.50) X10*6/uL Hgb 12.3 (12.0-16.0) g/dl Hct 35.9 L (37.0-47.0) % MCV 91.6 (80.0-98.0) fL MCH 31.4 (27.0-33.0) pg MCHC 34.3 (31.0-35.0) g/dl RDW 13.1 (11.0-16.0) % Plt Count 284 (160-400) X10*3/uL MPV 8.9 L (9.4-12.3) fL Immature Gran % (Auto) 0.5 H (0.0-0.4) % Neut % (Auto) 65.2 (45-73) % Lymph % (Auto) 23.1 (20-40) % [place] % (Auto) 8.1 (2-11) % Eos % (Auto) 2.8 (0-4) % Baso % (Auto) 0.3 (0-2) % Lymph # (Auto) 2.1 (1.2-4.9) X10*3/uL [place] # (Auto) 0.7 (0.1-1.2) X10*3/uL Eos # (Auto) 0.3 (0.0-0.4) X10*3/uL Baso # (Auto) 0.0 (0.0-0.2) X10*3/uL Abs Immat Gran (auto) 0.05 H (0.00-0.03) X10*3/uL Absolute Neuts (auto) 6.0 6.7 (2.0-8.3) x10*3/uL Absolute Nucleated RBC 0.000 (0.0-0.012) X10*3/uL Nucleated RBC % (auto) 0.0 (0.0-0.2) /100WBC Sodium 141 (135-145) mmol/L Potassium 3.8 (3.3-5.1) mmol/L Chloride 105 (96-108) mmol/L Carbon Dioxide 20 L (22-29) mmol/L Anion Gap 20 (12-20) BUN 8 L (9-16) mg/dL Creatinine 0.61 0.59 (0.5-1.4) mg/dL Estim Creat Clear Calc 140.7 145.4 Estimated GFR > 60 > 60 Random Glucose 150 H (60-115) mg/dL Calcium 9.0 (8.4-10.2) mg/dL Urine Color Yellow Urine Appearance Clear Urine pH 5.5 (5.0-9.0) Ur Specific [place] <= 1.005 (1.005-1.025) Urine Protein Negative (Neg-Trace) mg/dL Urine Glucose (UA) Negative (Negative) mg/dL Urine Ketones Negative (Negative) mg/dL Urine Blood Large (3+) H (Negative) Urine Nitrite Negative (Negative) Ur Leukocyte Esterase Trace H (Negative) Urine RBC >20 H (0-2) /HPF Urine WBC 0-5 (0-5) /HPF Ur Squamous Epith Cells 0-2 (0-2) /HPF Urine Bacteria 4+ (None Seen) Hyaline Casts 0-2 (0-2) /LPF Urine Opiates Screen Not Detected (Not Detect) Ur Buprenorphine Scrn Not Detected (Not Detect) ng/mL Ur Oxycodone Screen Not Detected (Not Detect) ng/mL Urine Methadone Screen Not Detected (Not Detect) ng/mL Urine Fentanyl Screen Not Detected (Not Detect) Ur Barbiturates Screen Not Detected (Not Detect) Ur Phencyclidine Scrn Not Detected (Not Detect) Ur Amphetamines Screen Not Detected (Not Detect) U Benzodiazepines Scrn Not Detected (Not Detect) Urine Cocaine Screen Not Detected (Not Detect) U Marijuana (THC) Screen Not Detected (Not Detect) Influenza Type A (PCR) NEGATIVE (Negative) Influenza Type B (PCR) NEGATIVE (Negative) RSV RNA Qual (PCR) NEGATIVE (Negative) SARS-CoV-2 RNA (RT-PCR) NEGATIVE (Negative) External Record Review External record reviewed: Inpatient record and Prior outpatient labs Chronic Conditions Patient?s care impacted by: Diabetes and Other (Bipolar disorder, PTSD) Social Determinants Patient?s care significantly limited by Social Determinants of Health including: Problems related to primary support group and Other Social Determinant of Health Discharge Plan Discharge Clinical Impression: PTSD (post-traumatic stress disorder), Auditory hallucination, Suicidal ideation Patient Disposition: Admitted As Inpatient Interventions: [place]-Suicide Risk Severity Scale Last Done: 05/26/25 21:48
[2025-05-26 03:19] VITALS: BP 131/95; PULSE 107; RESP 18; O2SAT 95
[2025-05-26] MEDS: Nicotine 14 MG PATCH.TD24 TRANSDERMA (03:27)
--- NOTE | 2025-05-26 05:45 | PC.NURSE ---
resting quietly, patient attempting to sleep at this time. patient observer in place.
[2025-05-26 08:15] VITALS: BP 129/93; PULSE 110; RESP 16; TEMP 36.4; O2SAT 100
[2025-05-26 09:05] VITALS: BP 129/93
[2025-05-26] MEDS: Ferrous Sulfate 324 MG TABLET.DR PO ×2 (09:05→20:41)
[2025-05-26] MEDS: Fluticasone/Umeclidinium/Vilanterol 200/62.5/25 BLST.W.DEV 1 PUFF INHALE (09:06)
--- NOTE | 2025-05-26 10:33 | PC.NURSE ---
pharmacy still working on verifying 2 of patients 9am meds, they have not been given yet.
--- NOTE | 2025-05-26 10:43 | PHA.MEDREC ---
Pharmacy Consult ? Medication Reconciliation Pharmacy has reviewed the medication reconciliation by nursing. Attempted to get fax from [facility] but they were unable to get the fax to send x 2. Verbal confirmed question with pharmacy. Patient should be taking Haldol 5 mg BID @ 0900, 1600 and 10 mg @ bedtime. Fluoxetine last filled 03/31/25 for a 30 day supply. Even though medication is late to be filled since filled within the last 2 months and patient has been on for a while, will keep on home medication list. Mady Anthony, MarjD
[2025-05-26 14:51] VITALS: BP 167/95; PULSE 117; RESP 17; TEMP 36; O2SAT 95
[2025-05-26] MEDS: Albuterol Sulfate 90 MCG 8 GM INHALER 2 PUFF INHALE (21:00)
[2025-05-27] VITALS (7 sets, daily range): BP systolic 124–174; BP diastolic 66–115; PULSE 100–118; RESP 16–20; TEMP 35.8–36.7; O2SAT 95–96; BMI 41.4
--- NOTE | 2025-05-27 07:26 | PC.NURSE ---
Assumed care of this patient at 0650, pt appears to be sleeping at this time. Respirations are even and unlabored. Doesn't appear to be in any distress. Continue plan of care for inpatient bed search.
[2025-05-27 09:37] LABS: Neut%MD 67.7 %; WBCANC 9.9 X10*3/uL
--- NOTE | 2025-05-27 09:48 | MHC.EDTECH ---
Patient belongings moved from [facility] to [facility]. Belongings list updated to reflect
[2025-05-27 09:50] LABS: Creatinine Clr Calc Pharmacy 145.4; Estimated Glomerular Filt Rate > 60
[2025-05-27] MEDS: Fluticasone/Umeclidinium/Vilanterol 200/62.5/25 BLST.W.DEV 1 PUFF INHALE (10:04)
[2025-05-27] MEDS: Albuterol Sulfate 90 MCG 8 GM INHALER 2 PUFF INHALE (10:04)
[2025-05-27] MEDS: Ferrous Sulfate 324 MG TABLET.DR PO ×2 (10:05→21:37)
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
--- NOTE | 2025-05-27 14:35 | HO.PM.IMCN ---
History of Present Illness Data of Consult Service Date: 05/27/25 Primary Care Provider: Maribel Marquez NP [facility] Reason for consult: Hypertension 49-year-old female with a past medical history of PTSD, depression, GERD, type 2 diabetes, borderline personality disorder, chronic auditory and visual hallucinations, chronic suicidal ideation presented to the ED with increased suicidal thoughts and voices telling her to harm herself. She is admitted to inpatient psychiatric unit for continued care. She was medically cleared for admission. Patient is being seen for hypertension. Upon review of her blood pressure is they have been persistently elevated with a diastolic numbers in 90s to 100's. She initially reported headache, at time of exam is she denies any headache. She denies any shortness of breath, dizziness, lightheadedness or any other concerning symptoms. Patient reports she has been taking her medications as an outpatient including her blood pressure pills and medications for diabetes. She reports occasional shortness of breath for which she takes albuterol, and reports a mild sore throat. She was tested for COVID ED and it was negative Review of Systems Review of Systems: Denies any shortness of breath, chest pain, dizziness, lightheadedness, abdominal pain or discomfort, nausea vomiting or diarrhea PMFSH Medical History Asthma Suicidal ideation MDD (major depressive disorder), recurrent episode, severe Chest pain Acute anxiety COVID-19 Full body hives Major depression Dizziness Suicide attempt UTI (urinary tract infection) Acetaminophen overdose COVID History of attempted suicide History of non-suicidal self-harm Hypomagnesemia Suicide attempt Suicide attempt by acetaminophen overdose Acetaminophen overdose Depression Diabetes type 2, controlled Borderline personality disorder PTSD (post-traumatic stress disorder) Overdose GERD (gastroesophageal reflux disease) Mood disorder Hyperlipidemia Bronchitis Social History Household Members: Other Household Members Other:: intermediate members Housing: Other Housing Other:: Group Do you presently have visiting nurse or other home services: Yes (intermediate staff manage meds) Unable to assess alcohol history related to: Refusing to respond Alcohol intake: never Comment: sitter in room Patient Tobacco Use Status: Current everyday Tobacco user Tobacco use type: Cigarette Cigarette Packs Per Day: 1 Cigarettes Per Day: 20.0 Years Smoked: 23 Smoked in Last 30 Days: Yes e-Cigarette/Vaping Use: Never Used Patient Interested in Nicotine Replacement: Yes (patch) Patient Given Instructions on How to Stop Smoking: No Second Hand Smoke Exposure: No Use of substances other than those prescribed or required for medical reasons: Refusing to respond Substance Use Type: Caffiene Have you been hit, kicked, punched, or otherwise hurt by someone within the past year? If so, by whom?: No Do you feel safe in your current relationship?: Yes Is there a partner from a previous relationship who is making you feel unsafe now?: No Are you made to feel afraid or neglected: No Advance Directives: No Advance Directives Information Provided: Yes Do you have a plan to hurt others: No Plan Nutrition Risks: No Nutritional Risk Patient : No : No Poor oral hygiene: No service: No Current occupational status: unemployed and disabled Sexual orientation: Straight/Heterosexual Meds Allergies Allergy/AdvReac Type Severity Reaction Status Date / Time azithromycin (AZITHROMYCIN) Allergy Severe Rash Verified 05/25/25 19:58 Fish Containing Products Allergy Severe Anaphylaxis Verified 05/25/25 19:58 codeine (Codeine) Allergy Intermediate Rash Verified 05/25/25 19:58 Penicillins Allergy Intermediate Rash Verified 05/25/25 19:58 prednisone (Prednisone) Allergy Intermediate Rash Verified 05/25/25 19:58 Sulfa (Sulfonamide Allergy Intermediate Rash Verified 05/25/25 19:58 Antibiotics) (Sulfa (Sulfonamides)) ziprasidone (From Geodon) Allergy Intermediate dysuria, Verified 05/25/25 19:58 rash lithium Allergy Unknown Rash Verified 05/25/25 19:58 Active Medications: Current Medications Acetaminophen (Acetaminophen 325 Mg Tablet) 650 mg PO Q6H PRN PRN Reason: Headache/Pain, Scale 1-10 Al Hydroxide/Mg Hydroxide (Magnesium Hydrox/Alum Hydrox 30 Ml Oral.Susp) 30 ml PO Q6H PRN PRN Reason: Heartburn/Nausea Albuterol Sulfate (Albuterol Sulfate 90 Mcg 8 Gm Inhaler) 2 puff INHALE Q6H PRN PRN Reason: Wheezing Last Admin: 05/27/25 10:04 Dose: 2 puff Amlodipine Besylate (Amlodipine Besylate 5 Mg Tablet) 5 mg PO DAILY [facility]; Protocol Last Admin: 05/27/25 10:05 Dose: 5 mg Amlodipine Besylate (Amlodipine Besylate 2.5 Mg Tablet) 7.5 mg PO DAILY [facility]; Protocol Atorvastatin Calcium (Atorvastatin Calcium 10 Mg Tablet) 10 mg PO DAILY [facility] Last Admin: 05/27/25 10:05 Dose: 10 mg Benzocaine (Throat Lozenge, Medicated Lozenge) 1 lozenge MUCOUS MEM Q2H PRN PRN Reason: Sore Throat Clozapine (Clozapine 100 Mg Tablet) 200 mg PO BEDTIME [facility] Last Admin: 05/26/25 20:41 Dose: 200 mg Docusate Sodium (Docusate Sodium 100 Mg Capsule) 100 mg PO BID [facility] Last Admin: 05/27/25 10:11 Dose: 100 mg Ferrous Sulfate (Ferrous Sulfate 324 Mg Tablet.Dr) 324 mg PO BID [facility] Last Admin: 05/27/25 10:05 Dose: 324 mg Fluoxetine HCl (Fluoxetine Hcl 20 Mg Capsule) 80 mg PO DAILY [facility] Last Admin: 05/27/25 10:06 Dose: 80 mg Fluticasone/Umeclidinium/Vilanterol (Fluticasone/Umeclidinium/Vilanterol 200/62.5/25 Blst.W.Dev) 1 puff INHALE RDAILY [facility] Last Admin: 05/27/25 10:04 Dose: 1 puff Glycopyrrolate (Glycopyrrolate 1 Mg Tablet) 1 mg PO BID [facility] Last Admin: 05/27/25 10:05 Dose: 1 mg Haloperidol (Haloperidol 5 Mg Tablet) 5 mg PO BID@0900,1600 [facility] Last Admin: 05/27/25 10:06 Dose: 5 mg Haloperidol (Haloperidol 5 Mg Tablet) 10 mg PO BEDTIME [facility] Last Admin: 05/26/25 20:41 Dose: 10 mg Hydrochlorothiazide (Hydrochlorothiazide 12.5 Mg Tablet) 12.5 mg PO DAILY [facility]; Protocol Ibuprofen (Ibuprofen 600 Mg Tablet) 600 mg PO Q6H PRN PRN Reason: Mild Pain (Scale Score 1-4) Lorazepam (Lorazepam 0.5 Mg Tablet) 0.5 mg PO BID [facility] Last Admin: 05/27/25 10:05 Dose: 0.5 mg Magnesium Hydroxide (Milk Of Magnesia 30 Ml Oral.Susp) 30 ml PO DAILY PRN PRN Reason: Constipation Metformin HCl (Metformin Hcl 500 Mg Tablet) 500 mg PO BID [facility] Last Admin: 05/27/25 10:09 Dose: 500 mg Mirtazapine (Mirtazapine 15 Mg Tablet) 15 mg PO BEDTIME [facility] Last Admin: 05/26/25 20:41 Dose: 15 mg Montelukast Sodium (Montelukast Sodium 10 Mg Tablet) 10 mg PO DAILY [facility] Last Admin: 05/27/25 10:09 Dose: 10 mg Nicotine (Nicotine 21 Mg Patch.Td24) 21 mg TRANSDERMA DAILY [facility] Nicotine Polacrilex (Nicotine Polacrilex 2 Mg Gum) 4 mg BUCCAL Q2H PRN PRN Reason: Nicotine Cravings Prazosin HCl (Prazosin Hcl 1 Mg Capsule) 4 mg PO BEDTIME [facility]; Protocol Last Admin: 05/26/25 20:40 Dose: 4 mg Home Medications ?Medication ?Instructions ?Recorded ?Confirmed ?Last Taken ?Type albuterol sulfate 90 mcg/actuation 2 puff inhalation Q6H PRN Wheezing 06/24/24 05/26/25 05/22/25 History aerosol inhaler amlodipine 5 mg tablet 5 mg PO DAILY 06/24/24 05/26/25 05/22/25 History clozapine 100 mg tablet 200 mg PO BEDTIME 06/24/24 05/26/25 05/22/25 History fluoxetine 40 mg capsule 80 mg PO DAILY 06/24/24 05/26/25 05/22/25 History prazosin 2 mg capsule 4 mg PO BEDTIME 06/24/24 05/26/25 05/22/25 History metformin 500 mg tablet 500 mg PO BID 07/15/24 05/26/25 05/22/25 History haloperidol 10 mg tablet 10 mg PO BEDTIME hallucinations 01/10/25 05/26/25 05/22/25 History haloperidol 5 mg tablet 5 mg PO BID@0900,1600 01/10/25 05/26/25 05/22/25 History atorvastatin 10 mg tablet 10 mg PO DAILY 05/23/25 05/26/25 05/22/25 History docusate sodium 100 mg capsule 100 mg PO BID 05/23/25 05/26/25 05/22/25 History ferrous sulfate 325 mg (65 mg 325 mg PO BID 05/23/25 05/26/25 05/22/25 History iron) tablet fluticasone fur. 200 mcg-umeclid 1 ea inhalation DAILY 05/23/25 05/26/25 05/22/25 History 62.5 mcg-vilant 25 mcg inhalat.powder (Trelegy Ellipta) glycopyrrolate 1 mg tablet 1 mg PO BID 05/23/25 05/26/25 05/22/25 History ibuprofen 600 mg tablet 600 mg PO Q6H PRN Mild Pain (Scale 05/23/25 05/26/25 05/22/25 History Score 1-4) lorazepam 0.5 mg tablet 0.5 mg PO BID 05/23/25 05/26/25 05/22/25 History mirtazapine 15 mg tablet 15 mg PO BEDTIME 05/23/25 05/26/25 05/22/25 History montelukast 10 mg tablet 10 mg PO DAILY 05/23/25 05/26/25 05/22/25 History Physical Exam Vital Signs and Narrative: Vital Signs: Last Vital Signs Temp 98.1 F 05/27/25 13:37 Pulse 112 H 05/27/25 13:37 Resp 20 05/27/25 13:37 BP 174/115 H 05/27/25 13:37 Pulse Ox 96 05/27/25 13:37 O2 Del Method Room Air 05/27/25 13:37 BMI result Body Mass Index 42.9 CONST: Alert and oriented, in NAD. Well nourished HEENT: Normocephalic, atraumatic, MMM RESP: Lungs clear, RRR even and regular HEART:,RRR, S1, S2. no edema GI:Abdomen Soft NT, ND. + BS times four :Deferred SKIN: Warm dry and intact, no visible lesions or rashes NEURO:CN II-XII Intact bilaterally, Sensation intact. Speech clear PSYCH: Flat affect, appears sedate Results Labs 05/26/25 00:52 05/27/25 09:27 Labs: Laboratory Results - last 24 hr 05/27/25 09:27 Absolute Neuts (auto) 6.7 Estim Creat Clear Calc 145.4 Estimated GFR > 60 Assessment and Plan (1) Hypertension: Status: Acute Plan 49-year-old female past medical history of hypertension, type 2 diabetes, major depressive disorder, PTSD, history of suicidal ideation, borderline personality disorder, and GERD, presented to the ED with increased suicidal thoughts and auditory hallucinations. She is admitted to inpatient psych for further care. Major depressive disorder/ PTSD/borderline personality disorder/history of suicidal ideation/auditory and visual hallucinations Treatment per psychiatric team Hypertension/HLD Currently uncontrolled, diastolic pressures 90s to 100s Additional dose of 2.5 of amlodipine, we will add hydrochlorothiazide Follow labs Continue to follow and adjust blood pressure medications based on readings Continue statin Type 2 diabetes Continue metformin Check A1c Thank you for allowing me to participate in the care of this patient. Will follow as needed. Please reconsult of any acute concerns or issues arise
[2025-05-27] MEDS: Throat Lozenge, Medicated LOZENGE 1 LOZENGE MUCOUS MEM (14:49)
[2025-05-27 16:16] LABS: Hemoglobin A1C 153.7961 umol/L; Total Hemoglobin (HGBA1C) 3541.5237 umol/L
--- NOTE | 2025-05-27 16:53 | PC.NURSE ---
Lucita was admitted to [facility] at 1315 from [facility] for treatment of mood disorder with psychosis and SI. She was hearing command auditory hallucinations to kill herself by cutting or strangling herself in the outpt setting. While this is a a frequent occurrence, she felt unable to keep herself safe in the outpt setting so presented to ED. She is unable to identify recent life stressors contributing to exacerbation. On arrival to the unit Lucita is alert, fully oriented, sullen but cooperative with admission process. Skin check revealed numerous superficial lacs to left arm. During admission process she picked at one and it was cleaned and dressed with dry sterile bandage. Mood is depressed. Affect is anxious. Thought process linear. She denies ideation, plan or intent to harm others. Appetite is reportedly poor, Sleep is poor per pt report, She denies substance issues and tox screen is negative. She denies current physical complaint but has a cough and her hypertension is uncontrolled. Alba Boykin [employer] and Iman Mendoza [employer] TE[employer] informed. Safety Checks are q 5 min for safety.
[2025-05-27 16:54] LABS: Glucose, Whole Blood 232 mg/dL (60-115)
--- NOTE | 2025-05-28 | ECG_ITS ---
Test Reason : Tachycardia Blood Pressure : */* mmHG Vent. Rate : 121 BPM Atrial Rate : 121 BPM P-R Int : 158 ms QRS Dur : 78 ms QT Int : 316 ms P-R-T Axes : 59 52 58 degrees QTcB Int : 448 ms Sinus tachycardia Possible Left atrial enlargement Abnormal ECG When compared with ECG of 16-Apr-2025 08:57, No significant change was found Referred By: Anamika Kimbrough Electronically Signed By: Fabricio Kay
[2025-05-28] MEDS: Albuterol Sulfate 90 MCG 8 GM INHALER 2 PUFF INHALE (06:57)
[2025-05-28 07:36] VITALS: BP 124/86; PULSE 85; RESP 18; TEMP 36.9; O2SAT 96
--- NOTE | 2025-05-28 09:02 | P.PNPSI_ITS ---
Subjective Subjective Date of Service: 05/28/25 Reason For Visit: SI Subjective Notes: Conditional Voluntary Interim History: Keeping to self. laying in bed. Patient reports feeling tired today; continues to report feeling depressed. She reports suicidal ideation with no plan. +AH telling her to harm herself. denies HI/VH. Encouraged to attend groups and not lay in bed. Continue current tx plan. Medication Compliance: Yes Side effects from medications: No Attending Groups: No Mental Status Exam Mental Status Exam Narrative: Pt is alert and oriented; behavior is cooperative and calm; dressed in casual attire; mood is described as depressed ; eye contact appropriate; Speech is normal rate, volume and not pressured; thought process is organized; Thought content is on tx; denies HI/VH. She reports auditory hallucinations telling her to harm herself. suicidal ideation with no plan. Diagnostics Vital Signs (24Hr): Vital Signs - 24 hr 05/27/25 10:05 05/27/25 10:06 05/27/25 11:50 Temperature 97.6 F Pulse Rate 112 H 100 Respiratory Rate 18 18 Blood Pressure 172/107 H 172/107 H 160/93 H Pulse Oximetry 95 Oxygen Delivery Method Room Air 05/27/25 13:37 05/27/25 14:38 05/27/25 20:00 Temperature 98.1 F 96.4 F L Pulse Rate 112 H 118 H Respiratory Rate 20 16 Blood Pressure 174/115 H 170/100 H 124/66 Pulse Oximetry 96 95 Oxygen Delivery Method Room Air Room Air 05/27/25 21:37 05/28/25 07:36 Temperature 98.4 F Pulse Rate 85 Respiratory Rate 18 Blood Pressure 133/68 124/86 Pulse Oximetry 96 Oxygen Delivery Method Room Air BMI result Body Mass Index 41.4 Labs 05/26/25 00:52 05/27/25 09:27 Labs: Laboratory Results - last 48 hr 05/27/25 05/27/25 09:27 16:45 Absolute Neuts (auto) 6.7 Creatinine 0.59 Estim Creat Clear Calc 145.4 Estimated GFR > 60 POC Glucose 232 H Estimat Average Glucose 128 Hemoglobin A1c % 6.1 H TSH 0.99 Medications Medications Current Medications Acetaminophen (Acetaminophen 325 Mg Tablet) 650 mg PO Q6H PRN PRN Reason: Headache/Pain, Scale 1-10 Al Hydroxide/Mg Hydroxide (Magnesium Hydrox/Alum Hydrox 30 Ml Oral.Susp) 30 ml PO Q6H PRN PRN Reason: Heartburn/Nausea Albuterol Sulfate (Albuterol Sulfate 90 Mcg 8 Gm Inhaler) 2 puff INHALE Q6H PRN PRN Reason: Wheezing Last Admin: 05/28/25 06:57 Dose: 2 puff Amlodipine Besylate (Amlodipine Besylate 5 Mg Tablet) 5 mg PO DAILY [facility]; Protocol Last Admin: 05/27/25 10:05 Dose: 5 mg Amlodipine Besylate (Amlodipine Besylate 2.5 Mg Tablet) 7.5 mg PO DAILY [facility]; Protocol Atorvastatin Calcium (Atorvastatin Calcium 10 Mg Tablet) 10 mg PO DAILY [facility] Last Admin: 05/27/25 10:05 Dose: 10 mg Benzocaine (Throat Lozenge, Medicated Lozenge) 1 lozenge MUCOUS MEM Q2H PRN PRN Reason: Sore Throat Last Admin: 05/27/25 14:49 Dose: 1 lozenge Clozapine (Clozapine 100 Mg Tablet) 200 mg PO BEDTIME [facility] Last Admin: 05/27/25 21:36 Dose: 200 mg Docusate Sodium (Docusate Sodium 100 Mg Capsule) 100 mg PO BID [facility] Last Admin: 05/27/25 21:37 Dose: 100 mg Ferrous Sulfate (Ferrous Sulfate 324 Mg Tablet.Dr) 324 mg PO BID [facility] Last Admin: 05/27/25 21:37 Dose: 324 mg Fluoxetine HCl (Fluoxetine Hcl 20 Mg Capsule) 80 mg PO DAILY [facility] Last Admin: 05/27/25 10:06 Dose: 80 mg Fluticasone/Umeclidinium/Vilanterol (Fluticasone/Umeclidinium/Vilanterol 200/62.5/25 Blst.W.Dev) 1 puff INHALE RDAILY [facility] Last Admin: 05/27/25 10:04 Dose: 1 puff Glycopyrrolate (Glycopyrrolate 1 Mg Tablet) 1 mg PO BID [facility] Last Admin: 05/27/25 21:36 Dose: 1 mg Haloperidol (Haloperidol 5 Mg Tablet) 5 mg PO BID@0900,1600 [facility] Last Admin: 05/27/25 14:49 Dose: 5 mg Haloperidol (Haloperidol 5 Mg Tablet) 10 mg PO BEDTIME [facility] Last Admin: 05/27/25 21:36 Dose: 10 mg Hydrochlorothiazide (Hydrochlorothiazide 12.5 Mg Tablet) 12.5 mg PO DAILY [facility]; Protocol Ibuprofen (Ibuprofen 600 Mg Tablet) 600 mg PO Q6H PRN PRN Reason: Mild Pain (Scale Score 1-4) Lorazepam (Lorazepam 0.5 Mg Tablet) 0.5 mg PO BID [facility] Last Admin: 05/27/25 21:37 Dose: 0.5 mg Magnesium Hydroxide (Milk Of Magnesia 30 Ml Oral.Susp) 30 ml PO DAILY PRN PRN Reason: Constipation Metformin HCl (Metformin Hcl 500 Mg Tablet) 500 mg PO BID [facility] Last Admin: 05/27/25 21:36 Dose: 500 mg Mirtazapine (Mirtazapine 15 Mg Tablet) 15 mg PO BEDTIME [facility] Last Admin: 05/27/25 21:36 Dose: 15 mg Montelukast Sodium (Montelukast Sodium 10 Mg Tablet) 10 mg PO DAILY [facility] Last Admin: 05/27/25 10:09 Dose: 10 mg Nicotine (Nicotine 21 Mg Patch.Td24) 21 mg TRANSDERMA DAILY [facility] Nicotine Polacrilex (Nicotine Polacrilex 2 Mg Gum) 4 mg BUCCAL Q2H PRN PRN Reason: Nicotine Cravings Prazosin HCl (Prazosin Hcl 1 Mg Capsule) 4 mg PO BEDTIME [facility]; Protocol Last Admin: 05/27/25 21:37 Dose: 4 mg Allergies Allergies Allergy/AdvReac Type Severity Reaction Status Date / Time azithromycin (AZITHROMYCIN) Allergy Severe Rash Verified 05/25/25 19:58 Fish Containing Products Allergy Severe Anaphylaxis Verified 05/25/25 19:58 codeine (Codeine) Allergy Intermediate Rash Verified 05/25/25 19:58 Penicillins Allergy Intermediate Rash Verified 05/25/25 19:58 prednisone (Prednisone) Allergy Intermediate Rash Verified 05/25/25 19:58 Sulfa (Sulfonamide Allergy Intermediate Rash Verified 05/25/25 19:58 Antibiotics) (Sulfa (Sulfonamides)) ziprasidone (From Geodon) Allergy Intermediate dysuria, Verified 05/25/25 19:58 rash lithium Allergy Unknown Rash Verified 05/25/25 19:58 Assessment & Plan Assessment & Plan (1) MDD (major depressive disorder), recurrent episode, severe: Status: Acute Code(s): F33.2 - Major depressive disorder, recurrent severe without psychotic features (2) PTSD (post-traumatic stress disorder): Status: Acute Code(s): F43.10 - Post-traumatic stress disorder, unspecified (3) Borderline personality disorder: Status: Acute Code(s): F60.3 - Borderline personality disorder Plan Patient is a 49 year old female with hx of MDD, PTSD and borderline personality d/o with hx of multiple inpatient hospitalizations who arrived via ambulance to ER d/t suicidal ideation secondary to increased auditory hallucinations. Plan: CV 5 minute safety checks Continue home medications obtain collateral encourage groups discharge planning 05/28: Keeping to self. laying in bed. Patient reports feeling tired today; continues to report feeling depressed. no paranoia today. She reports suicidal ideation with no plan. +AH telling her to harm herself. denies HI/VH. Encouraged to attend groups and not lay in bed. Continue current tx plan. Patient educated on: diagnosis, medication risk/benefits and therapeutic strategies Reason for continued inpatient stay Substantial Risk for: harm to self and med/psych decompensation Time Spent With Patient Time: Total time managing care of this patient today _20___ minutes.
[2025-05-28 09:17] VITALS: BP 124/86
[2025-05-28] MEDS: Ferrous Sulfate 324 MG TABLET.DR PO ×2 (09:17→20:05)
[2025-05-28 09:19] VITALS: BP 124/86
[2025-05-28] MEDS: Nicotine 21 MG PATCH.TD24 TRANSDERMA (09:20)
[2025-05-28 12:14] LABS: Alanine Aminotransferase 30 U/L (0-31); Albumin Level 4.3 g/dL (3.5-5.0); Alkaline Phosphatase 145 U/L (39-117); Anion Gap 16 (12-20); Aspartate Amino Transferase 28 U/L (5-31); Blood Urea Nitrogen 15 mg/dL (9-16); Calcium 9.6 mg/dL (8.4-10.2); Carbon Dioxide 27 mmol/L (22-29); Chloride 101 mmol/L (96-108); Cholesterol 201 mg/dL (<200); Creatinine Clr Calc Pharmacy 142.4; Estimated Glomerular Filt Rate > 60; HDL Cholesterol 42 mg/dL (>40); Potassium 4.2 mmol/L (3.3-5.1); Sodium 140 mmol/L (135-145); Total Protein 6.7 g/dL (6.5-8.0); Triglycerides 284 mg/dL (<150)
[2025-05-28 12:38] LABS: Hemoglobin A1C 153.1671 umol/L; Total Hemoglobin (HGBA1C) 3455.0530 umol/L
[2025-05-28] MEDS: Fluticasone/Umeclidinium/Vilanterol 200/62.5/25 BLST.W.DEV 1 PUFF INHALE (13:52)
[2025-05-28 16:52] VITALS: BMI 42.1
[2025-05-28 19:15] VITALS: BP 135/97; PULSE 126; RESP 18; TEMP 36.8; O2SAT 97
[2025-05-28 21:20] VITALS: BP 157/111; PULSE 129
[2025-05-28 22:35] LABS: Thyroid Stimulating Hormone 0.64 uIU/mL (0.32-4.0)
[2025-05-28 23:15] VITALS: PULSE 98
[2025-05-29] MEDS: Throat Lozenge, Medicated LOZENGE 1 LOZENGE MUCOUS MEM (01:31)
[2025-05-29 07:00] VITALS: BP 115/74; PULSE 84; RESP 18; TEMP 36.3; O2SAT 96
[2025-05-29] MEDS: Albuterol Sulfate 90 MCG 8 GM INHALER 2 PUFF INHALE (08:20)
[2025-05-29 08:21] VITALS: BP 115/74
[2025-05-29] MEDS: Ferrous Sulfate 324 MG TABLET.DR PO ×2 (08:22→21:22)
[2025-05-29] MEDS: Nicotine 21 MG PATCH.TD24 TRANSDERMA (08:23)
--- NOTE | 2025-05-29 08:54 | HO.PSYCHPN ---
Subjective Subjective Date of Service: 05/29/25 Reason For Visit: SI Subjective Notes: Conditional Voluntary Interim History: Keeping to self. Patient continues to report feeling depressed. Continues to report suicidal ideation with no plan and auditory hallucinations. Patient is requesting for her haldol to be increased; Haldol increased to 15mg PO bedtime. denies HI/VH. Patient reports she is not attending groups because she get anxious around other people. Medication Compliance: Yes Side effects from medications: No Attending Groups: No Mental Status Exam Mental Status Exam Narrative: Pt is alert and oriented; behavior is cooperative and calm; dressed in casual attire; mood is described as depressed ; eye contact appropriate; Speech is normal rate, volume and not pressured; thought process is organized; Thought content is on tx; denies HI/VH. She reports auditory hallucinations telling her to harm herself. suicidal ideation with no plan. Diagnostics Vital Signs (24Hr): Vital Signs - 24 hr 05/28/25 09:17 05/28/25 09:19 05/28/25 09:19 Temperature Pulse Rate Respiratory Rate Blood Pressure 124/86 124/86 124/86 Pulse Oximetry Oxygen Delivery Method 05/28/25 19:15 05/28/25 21:20 05/28/25 23:15 Temperature 98.2 F Pulse Rate 126 H 129 H 98 Respiratory Rate 18 Blood Pressure 135/97 H 157/111 H Pulse Oximetry 97 Oxygen Delivery Method Room Air 05/29/25 07:00 05/29/25 08:21 05/29/25 08:21 Temperature 97.3 F Pulse Rate 84 Respiratory Rate 18 Blood Pressure 115/74 115/74 115/74 Pulse Oximetry 96 Oxygen Delivery Method Room Air BMI result Body Mass Index 42.1 Labs 05/26/25 00:52 05/29/25 08:43 Labs: Laboratory Results - last 48 hr 05/27/25 05/27/25 05/28/25 09:27 16:45 11:39 Absolute Neuts (auto) 6.7 Sodium 140 Potassium 4.2 Chloride 101 Carbon Dioxide 27 Anion Gap 16 BUN 15 Creatinine 0.59 0.59 Estim Creat Clear Calc 145.4 142.4 Estimated GFR > 60 > 60 POC Glucose 232 H Random Glucose 130 H Estimat Average Glucose 128 131 Hemoglobin A1c % 6.1 H 6.2 H Calcium 9.6 D Total Bilirubin 0.3 AST 28 ALT 30 Alkaline Phosphatase 145 H Total Protein 6.7 Albumin 4.3 Triglycerides 284 H Cholesterol 201 H LDL Cholesterol, Calc 103 H HDL Cholesterol 42 TSH 0.99 0.64 Medications Medications Current Medications Acetaminophen (Acetaminophen 325 Mg Tablet) 650 mg PO Q6H PRN PRN Reason: Headache/Pain, Scale 1-10 Al Hydroxide/Mg Hydroxide (Magnesium Hydrox/Alum Hydrox 30 Ml Oral.Susp) 30 ml PO Q6H PRN PRN Reason: Heartburn/Nausea Albuterol Sulfate (Albuterol Sulfate 90 Mcg 8 Gm Inhaler) 2 puff INHALE Q6H PRN PRN Reason: Wheezing Last Admin: 05/29/25 08:20 Dose: 2 puff Amlodipine Besylate (Amlodipine Besylate 2.5 Mg Tablet) 7.5 mg PO DAILY [facility]; Protocol Last Admin: 05/29/25 08:21 Dose: 7.5 mg Atorvastatin Calcium (Atorvastatin Calcium 10 Mg Tablet) 10 mg PO DAILY [facility] Last Admin: 05/29/25 08:22 Dose: 10 mg Benzocaine (Throat Lozenge, Medicated Lozenge) 1 lozenge MUCOUS MEM Q2H PRN PRN Reason: Sore Throat Last Admin: 05/29/25 01:31 Dose: 1 lozenge Clozapine (Clozapine 100 Mg Tablet) 200 mg PO BEDTIME [facility] Last Admin: 05/28/25 20:04 Dose: 200 mg Docusate Sodium (Docusate Sodium 100 Mg Capsule) 100 mg PO BID [facility] Last Admin: 05/29/25 08:23 Dose: 100 mg Ferrous Sulfate (Ferrous Sulfate 324 Mg Tablet.Dr) 324 mg PO BID [facility] Last Admin: 05/29/25 08:22 Dose: 324 mg Fluoxetine HCl (Fluoxetine Hcl 20 Mg Capsule) 80 mg PO DAILY [facility] Last Admin: 05/29/25 08:22 Dose: 80 mg Fluticasone/Umeclidinium/Vilanterol (Fluticasone/Umeclidinium/Vilanterol 200/62.5/25 Blst.W.Dev) 1 puff INHALE RDAILY [facility] Last Admin: 05/28/25 13:52 Dose: 1 puff Glycopyrrolate (Glycopyrrolate 1 Mg Tablet) 1 mg PO BID [facility] Last Admin: 05/29/25 08:22 Dose: 1 mg Haloperidol (Haloperidol 5 Mg Tablet) 5 mg PO BID@0900,1600 [facility] Last Admin: 05/29/25 08:21 Dose: 5 mg Haloperidol (Haloperidol 5 Mg Tablet) 10 mg PO BEDTIME [facility] Last Admin: 05/28/25 20:05 Dose: 10 mg Hydrochlorothiazide (Hydrochlorothiazide 12.5 Mg Tablet) 12.5 mg PO DAILY [facility]; Protocol Last Admin: 05/29/25 08:21 Dose: 12.5 mg Ibuprofen (Ibuprofen 600 Mg Tablet) 600 mg PO Q6H PRN PRN Reason: Mild Pain (Scale Score 1-4) Lorazepam (Lorazepam 0.5 Mg Tablet) 0.5 mg PO BID [facility] Last Admin: 05/29/25 08:23 Dose: 0.5 mg Magnesium Hydroxide (Milk Of Magnesia 30 Ml Oral.Susp) 30 ml PO DAILY PRN PRN Reason: Constipation Metformin HCl (Metformin Hcl 500 Mg Tablet) 500 mg PO BID [facility] Last Admin: 05/29/25 08:22 Dose: 500 mg Mirtazapine (Mirtazapine 15 Mg Tablet) 15 mg PO BEDTIME [facility] Last Admin: 05/28/25 20:05 Dose: 15 mg Montelukast Sodium (Montelukast Sodium 10 Mg Tablet) 10 mg PO DAILY [facility] Last Admin: 05/29/25 08:22 Dose: 10 mg Nicotine (Nicotine 21 Mg Patch.Td24) 21 mg TRANSDERMA DAILY [facility] Last Admin: 05/29/25 08:23 Dose: 21 mg Nicotine Polacrilex (Nicotine Polacrilex 2 Mg Gum) 4 mg BUCCAL Q2H PRN PRN Reason: Nicotine Cravings Nystatin (Nystatin Cream 15 Gm Tube) 1 appl TOPICAL BID [facility]; Protocol Last Admin: 05/28/25 22:24 Dose: 1 appl Prazosin HCl (Prazosin Hcl 1 Mg Capsule) 4 mg PO BEDTIME [facility]; Protocol Last Admin: 05/28/25 20:04 Dose: 4 mg Allergies Allergies Allergy/AdvReac Type Severity Reaction Status Date / Time azithromycin (AZITHROMYCIN) Allergy Severe Rash Verified 05/25/25 19:58 Fish Containing Products Allergy Severe Anaphylaxis Verified 05/25/25 19:58 codeine (Codeine) Allergy Intermediate Rash Verified 05/25/25 19:58 Penicillins Allergy Intermediate Rash Verified 05/25/25 19:58 prednisone (Prednisone) Allergy Intermediate Rash Verified 05/25/25 19:58 Sulfa (Sulfonamide Allergy Intermediate Rash Verified 05/25/25 19:58 Antibiotics) (Sulfa (Sulfonamides)) ziprasidone (From Geodon) Allergy Intermediate dysuria, Verified 05/25/25 19:58 rash lithium Allergy Unknown Rash Verified 05/25/25 19:58 Assessment & Plan Assessment & Plan (1) MDD (major depressive disorder), recurrent episode, severe: Status: Acute Code(s): F33.2 - Major depressive disorder, recurrent severe without psychotic features (2) PTSD (post-traumatic stress disorder): Status: Acute Code(s): F43.10 - Post-traumatic stress disorder, unspecified (3) Borderline personality disorder: Status: Acute Code(s): F60.3 - Borderline personality disorder Plan Patient is a 49 year old female with hx of MDD, PTSD and borderline personality d/o with hx of multiple inpatient hospitalizations who arrived via ambulance to ER d/t suicidal ideation secondary to increased auditory hallucinations. Plan: CV 5 minute safety checks Continue home medications obtain collateral encourage groups discharge planning 05/28: Keeping to self. laying in bed. Patient reports feeling tired today; continues to report feeling depressed. no paranoia today. She reports suicidal ideation with no plan. +AH telling her to harm herself. denies HI/VH. Encouraged to attend groups and not lay in bed. Continue current tx plan. 05/29: Keeping to self. Patient continues to report feeling depressed. Continues to report suicidal ideation with no plan and auditory hallucinations. Patient is requesting for her haldol to be increased; Haldol increased to 15mg PO bedtime. denies HI/VH. Patient reports she is not attending groups because she get anxious around other people. Patient educated on: diagnosis, medication risk/benefits and therapeutic strategies Reason for continued inpatient stay Substantial Risk for: med/psych decompensation Time Spent With Patient Time: Total time managing care of this patient today _20___ minutes.
[2025-05-29] MEDS: Fluticasone/Umeclidinium/Vilanterol 200/62.5/25 BLST.W.DEV 1 PUFF INHALE (09:08)
[2025-05-29 09:18] LABS: Anion Gap 15 (12-20); Blood Urea Nitrogen 17 mg/dL (9-16); Calcium 9.4 mg/dL (8.4-10.2); Carbon Dioxide 26 mmol/L (22-29); Chloride 103 mmol/L (96-108); Creatinine Clr Calc Pharmacy 143.8; Estimated Glomerular Filt Rate > 60; Potassium 4.5 mmol/L (3.3-5.1); Sodium 139 mmol/L (135-145)
[2025-05-29 19:30] VITALS: BP 147/93; PULSE 99; RESP 18; TEMP 36.3; O2SAT 95
[2025-05-29 21:22] VITALS: BP 119/73
[2025-05-30 07:38] VITALS: BP 134/62; PULSE 96; RESP 16; TEMP 36.9; O2SAT 93
[2025-05-30] MEDS: Fluticasone/Umeclidinium/Vilanterol 200/62.5/25 BLST.W.DEV 1 PUFF INHALE (13:15)
[2025-05-30] MEDS: Nicotine 21 MG PATCH.TD24 TRANSDERMA (13:15)
[2025-05-30] MEDS: Ferrous Sulfate 324 MG TABLET.DR PO ×2 (13:17→20:13)
--- NOTE | 2025-05-30 14:37 | HO.PSYCHPN ---
Subjective Subjective Date of Service: 05/30/25 Reason For Visit: SI Interim History: lying in bed. so-so. CAH to head-bang, will [facility] staff if feeling overwhelmed. per staff, Q5min checks. dep 6 anx 7. taking meds. slept all morning. CAH to SIB. some gentle head-banging. +SI. slept 8 hours. Mental Status Exam Mental Status Exam Narrative: Pt is alert and oriented; behavior is cooperative and calm; dressed in casual attire; mood is described as so-so; eye contact appropriate; Speech is normal rate, volume and not pressured; thought process is organized; Thought content is on tx; denies HI/VH. She reports auditory hallucinations telling her to harm herself. suicidal ideation with no plan. Diagnostics Vital Signs (24Hr): Vital Signs - 24 hr 05/29/25 19:30 05/29/25 21:22 05/30/25 07:38 Temperature 97.4 F 98.4 F Pulse Rate 99 96 Respiratory Rate 18 16 Blood Pressure 147/93 H 119/73 134/62 Pulse Oximetry 95 93 Oxygen Delivery Method Room Air Room Air BMI result Body Mass Index 42.1 Labs 05/26/25 00:52 05/29/25 08:43 Labs: Laboratory Results - last 48 hr 05/28/25 05/29/25 11:39 08:43 Sodium 139 Potassium 4.5 Chloride 103 Carbon Dioxide 26 Anion Gap 15 BUN 17 H Creatinine 0.59 Estim Creat Clear Calc 143.8 Estimated GFR > 60 Random Glucose 151 H Calcium 9.4 TSH 0.64 Medications Medications Current Medications Acetaminophen (Acetaminophen 325 Mg Tablet) 650 mg PO Q6H PRN PRN Reason: Headache/Pain, Scale 1-10 Al Hydroxide/Mg Hydroxide (Magnesium Hydrox/Alum Hydrox 30 Ml Oral.Susp) 30 ml PO Q6H PRN PRN Reason: Heartburn/Nausea Albuterol Sulfate (Albuterol Sulfate 90 Mcg 8 Gm Inhaler) 2 puff INHALE Q6H PRN PRN Reason: Wheezing Last Admin: 05/29/25 08:20 Dose: 2 puff Amlodipine Besylate (Amlodipine Besylate 2.5 Mg Tablet) 7.5 mg PO DAILY [facility]; Protocol Last Admin: 05/30/25 13:17 Dose: 7.5 mg Atorvastatin Calcium (Atorvastatin Calcium 10 Mg Tablet) 10 mg PO DAILY [facility] Last Admin: 05/30/25 13:18 Dose: 10 mg Benzocaine (Throat Lozenge, Medicated Lozenge) 1 lozenge MUCOUS MEM Q2H PRN PRN Reason: Sore Throat Last Admin: 05/29/25 01:31 Dose: 1 lozenge Clozapine (Clozapine 100 Mg Tablet) 200 mg PO BEDTIME [facility] Last Admin: 05/29/25 21:21 Dose: 200 mg Docusate Sodium (Docusate Sodium 100 Mg Capsule) 100 mg PO BID [facility] Last Admin: 05/30/25 13:17 Dose: 100 mg Ferrous Sulfate (Ferrous Sulfate 324 Mg Tablet.Dr) 324 mg PO BID [facility] Last Admin: 05/30/25 13:17 Dose: 324 mg Fluoxetine HCl (Fluoxetine Hcl 20 Mg Capsule) 80 mg PO DAILY [facility] Last Admin: 05/30/25 13:18 Dose: 80 mg Fluticasone/Umeclidinium/Vilanterol (Fluticasone/Umeclidinium/Vilanterol 200/62.5/25 Blst.W.Dev) 1 puff INHALE RDAILY [facility] Last Admin: 05/30/25 13:15 Dose: 1 puff Glycopyrrolate (Glycopyrrolate 1 Mg Tablet) 1 mg PO BID [facility] Last Admin: 05/30/25 13:18 Dose: 1 mg Haloperidol (Haloperidol 5 Mg Tablet) 5 mg PO BID@0900,1600 [facility] Last Admin: 05/30/25 13:18 Dose: 5 mg Haloperidol (Haloperidol 5 Mg Tablet) 15 mg PO BEDTIME [facility] Last Admin: 05/29/25 21:21 Dose: 15 mg Hydrochlorothiazide (Hydrochlorothiazide 12.5 Mg Tablet) 12.5 mg PO DAILY [facility]; Protocol Last Admin: 05/30/25 13:18 Dose: 12.5 mg Ibuprofen (Ibuprofen 600 Mg Tablet) 600 mg PO Q6H PRN PRN Reason: Mild Pain (Scale Score 1-4) Lorazepam (Lorazepam 0.5 Mg Tablet) 0.5 mg PO BID [facility] Last Admin: 05/30/25 13:18 Dose: 0.5 mg Magnesium Hydroxide (Milk Of Magnesia 30 Ml Oral.Susp) 30 ml PO DAILY PRN PRN Reason: Constipation Metformin HCl (Metformin Hcl 500 Mg Tablet) 500 mg PO BID [facility] Last Admin: 05/30/25 13:18 Dose: 500 mg Mirtazapine (Mirtazapine 15 Mg Tablet) 15 mg PO BEDTIME [facility] Last Admin: 05/29/25 21:22 Dose: 15 mg Montelukast Sodium (Montelukast Sodium 10 Mg Tablet) 10 mg PO DAILY [facility] Last Admin: 05/30/25 13:17 Dose: 10 mg Nicotine (Nicotine 21 Mg Patch.Td24) 21 mg TRANSDERMA DAILY [facility] Last Admin: 05/30/25 13:15 Dose: 21 mg Nicotine Polacrilex (Nicotine Polacrilex 2 Mg Gum) 4 mg BUCCAL Q2H PRN PRN Reason: Nicotine Cravings Nystatin (Nystatin Cream 15 Gm Tube) 1 appl TOPICAL BID [facility]; Protocol Last Admin: 05/30/25 13:17 Dose: 1 appl Prazosin HCl (Prazosin Hcl 1 Mg Capsule) 4 mg PO BEDTIME [facility]; Protocol Last Admin: 05/29/25 21:22 Dose: 4 mg Allergies Allergies Allergy/AdvReac Type Severity Reaction Status Date / Time azithromycin (AZITHROMYCIN) Allergy Severe Rash Verified 05/25/25 19:58 Fish Containing Products Allergy Severe Anaphylaxis Verified 05/25/25 19:58 codeine (Codeine) Allergy Intermediate Rash Verified 05/25/25 19:58 Penicillins Allergy Intermediate Rash Verified 05/25/25 19:58 prednisone (Prednisone) Allergy Intermediate Rash Verified 05/25/25 19:58 Sulfa (Sulfonamide Allergy Intermediate Rash Verified 05/25/25 19:58 Antibiotics) (Sulfa (Sulfonamides)) ziprasidone (From Geodon) Allergy Intermediate dysuria, Verified 05/25/25 19:58 rash lithium Allergy Unknown Rash Verified 05/25/25 19:58 Assessment & Plan Assessment & Plan (1) MDD (major depressive disorder), recurrent episode, severe: Status: Acute Code(s): F33.2 - Major depressive disorder, recurrent severe without psychotic features (2) PTSD (post-traumatic stress disorder): Status: Acute Code(s): F43.10 - Post-traumatic stress disorder, unspecified (3) Borderline personality disorder: Status: Acute Code(s): F60.3 - Borderline personality disorder Plan Patient is a 49 year old female with hx of MDD, PTSD and borderline personality d/o with hx of multiple inpatient hospitalizations who arrived via ambulance to ER d/t suicidal ideation secondary to increased auditory hallucinations. Plan: CV 5 minute safety checks Continue home medications obtain collateral encourage groups discharge planning 05/28: Keeping to self. laying in bed. Patient reports feeling tired today; continues to report feeling depressed. no paranoia today. She reports suicidal ideation with no plan. +AH telling her to harm herself. denies HI/VH. Encouraged to attend groups and not lay in bed. Continue current tx plan. 05/29: Keeping to self. Patient continues to report feeling depressed. Continues to report suicidal ideation with no plan and auditory hallucinations. Patient is requesting for her haldol to be increased; Haldol increased to 15mg PO bedtime. denies HI/VH. Patient reports she is not attending groups because she get anxious around other people. 05/30: CAH to head-bang, some gentle head-banging last night. Q5s for safety. continue current mgmt. Reason for continued inpatient stay Substantial Risk for: harm to self and inability to function Time Spent With Patient Time: Total time managing care of this patient today ____ minutes.
[2025-05-30 19:15] VITALS: BP 151/98; PULSE 111; RESP 18; TEMP 36.9; O2SAT 96
[2025-05-31 08:00] VITALS: BP 121/71; PULSE 98; RESP 16; TEMP 36.5; O2SAT 93
[2025-05-31] MEDS: Fluticasone/Umeclidinium/Vilanterol 200/62.5/25 BLST.W.DEV 1 PUFF INHALE (08:53)
[2025-05-31] MEDS: Nicotine 21 MG PATCH.TD24 TRANSDERMA (08:55)
[2025-05-31] MEDS: Ferrous Sulfate 324 MG TABLET.DR PO ×2 (08:57→19:52)
--- NOTE | 2025-05-31 14:22 | P.PNPSI_ITS ---
Subjective Subjective Date of Service: 05/31/25 Reason For Visit: SI Interim History: wants to discharge. states SIBI is always there. what has changed is that she feels more in control, so she can discharge. MD referred pt to speak with primary team. per staff, slept till 5pm yesterday. +SIBI. taking meds. slept overnight. Mental Status Exam Mental Status Exam Narrative: Pt is alert and oriented; behavior is cooperative and calm; dressed in casual attire; mood is described as OK; eye contact appropriate; Speech is normal rate, volume and not pressured; thought process is organized; Thought content is on tx; denies HI/VH. She reports auditory hallucinations telling her to harm herself. suicidal ideation with no plan. chronic SIBI. Diagnostics Vital Signs (24Hr): Vital Signs - 24 hr 05/30/25 19:15 05/31/25 08:00 Temperature 98.5 F 97.7 F Pulse Rate 111 H 98 Respiratory Rate 18 16 Blood Pressure 151/98 H 121/71 Pulse Oximetry 96 93 Oxygen Delivery Method Room Air Room Air BMI result Body Mass Index 42.1 Labs 05/26/25 00:52 05/29/25 08:43 Medications Medications Current Medications Acetaminophen (Acetaminophen 325 Mg Tablet) 650 mg PO Q6H PRN PRN Reason: Headache/Pain, Scale 1-10 Al Hydroxide/Mg Hydroxide (Magnesium Hydrox/Alum Hydrox 30 Ml Oral.Susp) 30 ml PO Q6H PRN PRN Reason: Heartburn/Nausea Albuterol Sulfate (Albuterol Sulfate 90 Mcg 8 Gm Inhaler) 2 puff INHALE Q6H PRN PRN Reason: Wheezing Last Admin: 05/29/25 08:20 Dose: 2 puff Amlodipine Besylate (Amlodipine Besylate 2.5 Mg Tablet) 7.5 mg PO DAILY YULY; Protocol Last Admin: 05/31/25 08:55 Dose: 7.5 mg Atorvastatin Calcium (Atorvastatin Calcium 10 Mg Tablet) 10 mg PO DAILY YULY Last Admin: 05/31/25 09:38 Dose: 10 mg Benzocaine (Throat Lozenge, Medicated Lozenge) 1 lozenge MUCOUS MEM Q2H PRN PRN Reason: Sore Throat Last Admin: 05/29/25 01:31 Dose: 1 lozenge Clozapine (Clozapine 100 Mg Tablet) 200 mg PO BEDTIME YULY Last Admin: 05/30/25 20:13 Dose: 200 mg Docusate Sodium (Docusate Sodium 100 Mg Capsule) 100 mg PO BID [facility] Last Admin: 05/31/25 08:55 Dose: 100 mg Ferrous Sulfate (Ferrous Sulfate 324 Mg Tablet.Dr) 324 mg PO BID [facility] Last Admin: 05/31/25 08:57 Dose: 324 mg Fluoxetine HCl (Fluoxetine Hcl 20 Mg Capsule) 80 mg PO DAILY [facility] Last Admin: 05/31/25 08:56 Dose: 80 mg Fluticasone/Umeclidinium/Vilanterol (Fluticasone/Umeclidinium/Vilanterol 200/62.5/25 Blst.W.Dev) 1 puff INHALE RDAILY [facility] Last Admin: 05/31/25 08:53 Dose: 1 puff Glycopyrrolate (Glycopyrrolate 1 Mg Tablet) 1 mg PO BID [facility] Last Admin: 05/31/25 08:55 Dose: 1 mg Haloperidol (Haloperidol 5 Mg Tablet) 5 mg PO BID@0900,1600 [facility] Last Admin: 05/31/25 08:57 Dose: 5 mg Haloperidol (Haloperidol 5 Mg Tablet) 15 mg PO BEDTIME [facility] Last Admin: 05/30/25 20:13 Dose: 15 mg Hydrochlorothiazide (Hydrochlorothiazide 12.5 Mg Tablet) 12.5 mg PO DAILY [facility]; Protocol Last Admin: 05/31/25 08:57 Dose: 12.5 mg Ibuprofen (Ibuprofen 600 Mg Tablet) 600 mg PO Q6H PRN PRN Reason: Mild Pain (Scale Score 1-4) Lorazepam (Lorazepam 0.5 Mg Tablet) 0.5 mg PO BID [facility] Last Admin: 05/31/25 08:56 Dose: 0.5 mg Magnesium Hydroxide (Milk Of Magnesia 30 Ml Oral.Susp) 30 ml PO DAILY PRN PRN Reason: Constipation Metformin HCl (Metformin Hcl 500 Mg Tablet) 500 mg PO BID [facility] Last Admin: 05/31/25 08:57 Dose: 500 mg Mirtazapine (Mirtazapine 15 Mg Tablet) 15 mg PO BEDTIME [facility] Last Admin: 05/30/25 20:13 Dose: 15 mg Montelukast Sodium (Montelukast Sodium 10 Mg Tablet) 10 mg PO DAILY [facility] Last Admin: 05/31/25 09:00 Dose: 10 mg Nicotine (Nicotine 21 Mg Patch.Td24) 21 mg TRANSDERMA DAILY YULY Last Admin: 05/31/25 08:55 Dose: 21 mg Nicotine Polacrilex (Nicotine Polacrilex 2 Mg Gum) 4 mg BUCCAL Q2H PRN PRN Reason: Nicotine Cravings Nystatin (Nystatin Cream 15 Gm Tube) 1 appl TOPICAL BID [facility]; Protocol Last Admin: 05/31/25 09:39 Dose: Not Given Prazosin HCl (Prazosin Hcl 1 Mg Capsule) 4 mg PO BEDTIME YULY; Protocol Last Admin: 05/30/25 20:13 Dose: 4 mg Allergies Allergies Allergy/AdvReac Type Severity Reaction Status Date / Time azithromycin (AZITHROMYCIN) Allergy Severe Rash Verified 05/25/25 19:58 Fish Containing Products Allergy Severe Anaphylaxis Verified 05/25/25 19:58 codeine (Codeine) Allergy Intermediate Rash Verified 05/25/25 19:58 Penicillins Allergy Intermediate Rash Verified 05/25/25 19:58 prednisone (Prednisone) Allergy Intermediate Rash Verified 05/25/25 19:58 Sulfa (Sulfonamide Allergy Intermediate Rash Verified 05/25/25 19:58 Antibiotics) (Sulfa (Sulfonamides)) ziprasidone (From Geodon) Allergy Intermediate dysuria, Verified 05/25/25 19:58 rash lithium Allergy Unknown Rash Verified 05/25/25 19:58 Assessment & Plan Assessment & Plan (1) MDD (major depressive disorder), recurrent episode, severe: Status: Acute Code(s): F33.2 - Major depressive disorder, recurrent severe without psychotic features (2) PTSD (post-traumatic stress disorder): Status: Acute Code(s): F43.10 - Post-traumatic stress disorder, unspecified (3) Borderline personality disorder: Status: Acute Code(s): F60.3 - Borderline personality disorder Plan Patient is a 49 year old female with hx of MDD, PTSD and borderline personality d/o with hx of multiple inpatient hospitalizations who arrived via ambulance to ER d/t suicidal ideation secondary to increased auditory hallucinations. Plan: CV 5 minute safety checks Continue home medications obtain collateral encourage groups discharge planning 05/28: Keeping to self. laying in bed. Patient reports feeling tired today; continues to report feeling depressed. no paranoia today. She reports suicidal ideation with no plan. +AH telling her to harm herself. denies HI/VH. Encouraged to attend groups and not lay in bed. Continue current tx plan. 05/29: Keeping to self. Patient continues to report feeling depressed. Continues to report suicidal ideation with no plan and auditory hallucinations. Patient is requesting for her haldol to be increased; Haldol increased to 15mg PO bedtime. denies HI/VH. Patient reports she is not attending groups because she get anxious around other people. 05/30: CAH to head-bang, some gentle head-banging last night. Q5s for safety. continue current mgmt. 05/31: no SIB since 05/29. feeling ready for discharge, more in control. SIBI never goes away. continue current mgmt. Reason for continued inpatient stay Substantial Risk for: harm to self and rapid decompensation Time Spent With Patient Time: Total time managing care of this patient today ____ minutes.
[2025-05-31 19:43] VITALS: BP 173/96; PULSE 116; RESP 16; TEMP 36.8; O2SAT 98
[2025-05-31 19:46] VITALS: BP 146/105; PULSE 120
[2025-06-01 07:15] VITALS: BP 130/97; PULSE 110; RESP 14; TEMP 36.3; O2SAT 95
[2025-06-01] MEDS: Fluticasone/Umeclidinium/Vilanterol 200/62.5/25 BLST.W.DEV 1 PUFF INHALE (08:57)
[2025-06-01] MEDS: Ferrous Sulfate 324 MG TABLET.DR PO (08:58)
[2025-06-01 08:59] VITALS: BP 122/87
[2025-06-01] MEDS: Nicotine 21 MG PATCH.TD24 TRANSDERMA (09:00)
--- NOTE | 2025-06-01 10:33 | PM.PSYDC ---
DS: Providers Provider Date of Service: 06/01/25 Date of admission: 05/27/25 11:21 Date of discharge: 06/01/25 Primary care physician: Maribel Mraquez NP Admitting clinician: Iman Mendoza Attending physician on admission: Sourav Lucas Consults: 05/27/25 13:40 Consult to Hospitalist Routine Comment: Consulting Provider: [facility] Hospitalists Reason For Exam: hypertension Attending physician on discharge: Sourav Lucas Discharging clinician: Iman Mendoza DS: Diagnosis Discharge Diagnosis (1) MDD (major depressive disorder), recurrent episode, severe: Status: Acute (2) PTSD (post-traumatic stress disorder): Status: Acute (3) Borderline personality disorder: Status: Acute DS: Medications Discharge Medications Home Medications: Home Medications ?Medication ?Instructions ?Recorded ?Confirmed albuterol sulfate 90 mcg/actuation 2 puff inhalation Q6H PRN Wheezing 06/24/24 05/26/25 aerosol inhaler amlodipine 5 mg tablet 5 mg PO DAILY 06/24/24 05/26/25 clozapine 100 mg tablet 200 mg PO BEDTIME 06/24/24 05/26/25 fluoxetine 40 mg capsule 80 mg PO DAILY 06/24/24 05/26/25 prazosin 2 mg capsule 4 mg PO BEDTIME 06/24/24 05/26/25 metformin 500 mg tablet 500 mg PO BID 07/15/24 05/26/25 haloperidol 10 mg tablet 10 mg PO BEDTIME hallucinations 01/10/25 05/26/25 haloperidol 5 mg tablet 5 mg PO BID@0900,1600 01/10/25 05/26/25 atorvastatin 10 mg tablet 10 mg PO DAILY 05/23/25 05/26/25 docusate sodium 100 mg capsule 100 mg PO BID 05/23/25 05/26/25 ferrous sulfate 325 mg (65 mg 325 mg PO BID 05/23/25 05/26/25 iron) tablet fluticasone fur. 200 mcg-umeclid 1 ea inhalation DAILY 05/23/25 05/26/25 62.5 mcg-vilant 25 mcg inhalat.powder (Trelegy Ellipta) glycopyrrolate 1 mg tablet 1 mg PO BID 05/23/25 05/26/25 ibuprofen 600 mg tablet 600 mg PO Q6H PRN Mild Pain (Scale 05/23/25 05/26/25 Score 1-4) lorazepam 0.5 mg tablet 0.5 mg PO BID 05/23/25 05/26/25 mirtazapine 15 mg tablet 15 mg PO BEDTIME 05/23/25 05/26/25 montelukast 10 mg tablet 10 mg PO DAILY 05/23/25 05/26/25 Mental Status Exam Mental Status Exam Narrative: Pt is alert and oriented; behavior is cooperative and calm; dressed in casual attire; mood is described as good ; eye contact appropriate; Speech is normal rate, volume and not pressured; thought process is organized; Thought content is on discharge; denies SI/HI/VH. She reports auditory hallucinations that are manageable. Data Data Completed and Pending Completed studies during hospitalization [Text1]: 05/25/25 05/26/25 05/27/25 21:04 00:52 09:27 WBC 9.2 RBC 3.92 L Hgb 12.3 Hct 35.9 L MCV 91.6 MCH 31.4 MCHC 34.3 RDW 13.1 Plt Count 284 MPV 8.9 L Immature Gran % (Auto) 0.5 H Neut % (Auto) 65.2 Lymph % (Auto) 23.1 [place] % (Auto) 8.1 Eos % (Auto) 2.8 Baso % (Auto) 0.3 Lymph # (Auto) 2.1 [place] # (Auto) 0.7 Eos # (Auto) 0.3 Baso # (Auto) 0.0 Abs Immat Gran (auto) 0.05 H Absolute Neuts (auto) 6.0 6.7 Absolute Nucleated RBC 0.000 Nucleated RBC % (auto) 0.0 Sodium 141 Potassium 3.8 Chloride 105 Carbon Dioxide 20 L Anion Gap 20 BUN 8 L Creatinine 0.61 0.59 Estim Creat Clear Calc 140.7 145.4 Estimated GFR > 60 > 60 POC Glucose Random Glucose 150 H Estimat Average Glucose 128 Hemoglobin A1c % 6.1 H Calcium 9.0 Total Bilirubin AST ALT Alkaline Phosphatase Total Protein Albumin Triglycerides Cholesterol LDL Cholesterol, Calc HDL Cholesterol TSH 0.99 Urine Color Yellow Urine Appearance Clear Urine pH 5.5 Ur Specific [place] <= 1.005 Urine Protein Negative Urine Glucose (UA) Negative Urine Ketones Negative Urine Blood Large (3+) H Urine Nitrite Negative Ur Leukocyte Esterase Trace H Urine RBC >20 H Urine WBC 0-5 Ur Squamous Epith Cells 0-2 Urine Bacteria 4+ Hyaline Casts 0-2 Urine Opiates Screen Not Detected Ur Buprenorphine Scrn Not Detected Ur Oxycodone Screen Not Detected Urine Methadone Screen Not Detected Urine Fentanyl Screen Not Detected Ur Barbiturates Screen Not Detected Ur Phencyclidine Scrn Not Detected Ur Amphetamines Screen Not Detected U Benzodiazepines Scrn Not Detected Urine Cocaine Screen Not Detected U Marijuana (THC) Screen Not Detected Influenza Type A (PCR) NEGATIVE Influenza Type B (PCR) NEGATIVE RSV RNA Qual (PCR) NEGATIVE SARS-CoV-2 RNA (RT-PCR) NEGATIVE 05/27/25 05/28/25 05/29/25 16:45 11:39 08:43 WBC RBC Hgb Hct MCV MCH MCHC RDW Plt Count MPV Immature Gran % (Auto) Neut % (Auto) Lymph % (Auto) [place] % (Auto) Eos % (Auto) Baso % (Auto) Lymph # (Auto) [place] # (Auto) Eos # (Auto) Baso # (Auto) Abs Immat Gran (auto) Absolute Neuts (auto) Absolute Nucleated RBC Nucleated RBC % (auto) Sodium 140 139 Potassium 4.2 4.5 Chloride 101 103 Carbon Dioxide 27 26 Anion Gap 16 15 BUN 15 17 H Creatinine 0.59 0.59 Estim Creat Clear Calc 142.4 143.8 Estimated GFR > 60 > 60 POC Glucose 232 H Random Glucose 130 H 151 H Estimat Average Glucose 131 Hemoglobin A1c % 6.2 H Calcium 9.6 D 9.4 Total Bilirubin 0.3 AST 28 ALT 30 Alkaline Phosphatase 145 H Total Protein 6.7 Albumin 4.3 Triglycerides 284 H Cholesterol 201 H LDL Cholesterol, Calc 103 H HDL Cholesterol 42 TSH 0.64 Urine Color Urine Appearance Urine pH Ur Specific [place] Urine Protein Urine Glucose (UA) Urine Ketones Urine Blood Urine Nitrite Ur Leukocyte Esterase Urine RBC Urine WBC Ur Squamous Epith Cells Urine Bacteria Hyaline Casts Urine Opiates Screen Ur Buprenorphine Scrn Ur Oxycodone Screen Urine Methadone Screen Urine Fentanyl Screen Ur Barbiturates Screen Ur Phencyclidine Scrn Ur Amphetamines Screen U Benzodiazepines Scrn Urine Cocaine Screen U Marijuana (THC) Screen Influenza Type A (PCR) Influenza Type B (PCR) RSV RNA Qual (PCR) SARS-CoV-2 RNA (RT-PCR) DS: Summary Hospital Course Hospital Course: Patient is a 49 year old female with hx of MDD, PTSD and borderline personality d/o with hx of multiple inpatient hospitalizations who arrived via ambulance to ER d/t suicidal ideation secondary to increased auditory hallucinations. Per crisis report, hallucinations and suicidal ideation with a plan to engage in self-harming behavior by means of cutting. Patient did not identify a precipitating factor leading to increase in auditory hallucinations. Patient reports she believes people are after her to harm her. Patient did not reports sleep or appetite disturbances. She reports audio hallucinations telling her to engage in self-harm. Denies HI/VH. [place] patient endorses hallucinations described as voices previous trauma. History of intentional overdose on [id number] medications. History of self-harm behavior by means of cutting. Denies any substance use. During admission assessment, patient presents alert oriented x3. Calm and cooperative. Patient reports feeling depressed; patient stated, the voices are really bad. They are telling me to cut, that I was a mistake. I don't feel safe. Nothing happened; I was at my house with my friend and the voices just got bad . Patient reports suicidal ideation with thoughts of overdosing or cutting herself. She reports auditory hallucinations telling her to self-harm herself. denies HI/VH. She reports poor appetite. No issues with sleep. Patient reporting medication compliant when at home. Plan: CV 5 minute safety checks Continue home medications obtain collateral encourage groups discharge planning Keeping to self. laying in bed. Patient reports feeling tired today; continues to report feeling depressed. no paranoia today. She reports suicidal ideation with no plan. +AH telling her to harm herself. denies HI/VH. Encouraged to attend groups and not lay in bed. Continue current tx plan. Keeping to self. Patient continues to report feeling depressed. Continues to report suicidal ideation with no plan and auditory hallucinations. Patient is requesting for her haldol to be increased; Haldol increased to 15mg PO bedtime. denies HI/VH. Patient reports she is not attending groups because she get anxious around other people. CAH to head-bang, some gentle head-banging last night. Q5s for safety. continue current mgmt. no SIB since 05/29. feeling ready for discharge, more in control. SIBI never goes away. continue current mgmt. Patient reports feeling good today; she reports feeling ready to return home. Patient stated, I'm no longer feeling suicidal or having thoughts of self harm. I still have voices but they are manageable . denies SI/HI/VH. Patient reports she plans on following up with outpatient providers. Status at Discharge Cognitive/behavioral status at discharge: Patient has insight and demonstrates good judgment in terms of wanting to pursue treatment. Patient has a safety plan that includes presenting to the closest ER or calling 911 if feeling unsafe. Functional status at discharge: independent ambulation Overall status at discharge: patient is back to baseline Time Spent with Patient Time attestation: Total time managing care of this patient today _20___ minutes. Time spent: Less than 30 minutes Discharge Plan Discharge Anticipated Discharge Date/Time: 06/01/25 11:45 Patient Disposition: Home, Self-Care Discharge Diagnosis: MDD, PTSD, Borderline personality d/o Referrals: Maribel Marquez NP [Primary Care Provider, Medical] - 1 Week Referral Note: 06-01-25 Your primary care provider has been notified of your discharge and will be in contact no later than Sunday evening with the date and time of your follow up appt. Discharge Medications: New amlodipine 2.5 mg Tablet 7.5 mg PO DAILY 30 Days Qty: 90 0RF Protocol: Hold for SBP< HOLD for SBP < : 90 nystatin 100,000 unit/gram Cream 1 appl topical BID 30 Days Qty: 30 0RF Protocol: Apply to: Apply to: affected area hydrochlorothiazide 12.5 mg Tablet 12.5 mg PO DAILY 30 Days Qty: 30 0RF Protocol: Hold for SBP< HOLD for SBP < : 90 haloperidol 5 mg Tablet 15 mg PO BEDTIME 30 Days Qty: 90 0RF Continued glycopyrrolate 1 mg tablet 1 mg PO BID atorvastatin 10 mg tablet 10 mg PO DAILY lorazepam 0.5 mg tablet 0.5 mg PO BID Rx Instructions: Take 1 tablet at 9am and 1 tablet at 4pm ferrous sulfate 325 mg (65 mg iron) tablet 325 mg PO BID docusate sodium 100 mg capsule 100 mg PO BID montelukast 10 mg tablet 10 mg PO DAILY mirtazapine 15 mg tablet 15 mg PO BEDTIME ibuprofen 600 mg tablet 600 mg PO Q6H PRN (Reason: Mild Pain (Scale Score 1-4)) Trelegy Ellipta 200-62.5-25 mcg blister with device 1 ea inhalation DAILY fluoxetine 40 mg capsule 80 mg PO DAILY clozapine 100 mg tablet 200 mg PO BEDTIME albuterol sulfate 90 mcg/actuation HFA aerosol inhaler 2 puff inhalation Q6H PRN (Reason: Wheezing) prazosin 2 mg capsule 4 mg PO BEDTIME metformin 500 mg tablet 500 mg PO BID haloperidol 5 mg tablet 5 mg PO BID@0900,1600 Discontinued amlodipine 5 mg tablet 5 mg PO DAILY haloperidol 10 mg tablet 10 mg PO BEDTIME Discharge Orders: Discharge Order (Routine); Ordered 06/01/25 Ordered By: Iman Mendoza Diet: Regular diet Activity on Discharge: As tolerated Stand Alone Forms: Patient Portal Discharge page, Community Support Print Language: Turkish Care Plan Goals: Maintain mood and safe behaviors Take medications as prescribed Practice coping skills Continue with outpatient providers and reach out to them as needed Health Concerns: Mood stability and behaviors Plan of Treatment: Follow up with your PCP, psychiatric provider and other outpatient providers regarding above concerns Take medications as prescribed Assessment: Patient has insight and demonstrates good judgment in terms of wanting to pursue treatment. Patient has a safety plan that includes presenting to the closest ER or calling 911 if feeling unsafe.
--- NOTE | 2025-06-01 11:37 | PC.NURSE ---
Patient easily engaged. Reports mood is stable, reports feeling better . I am always going to hear voices, it's how I deal with it . Reports music has been helpful. Denies SI/HI plan or intent. Denies self harming ideations. Feels ready to go . Discharge paperwork reviewed with patient, reports understanding. Medications reviewed with patient reports understanding. PCP to call patients home with follow up appointment. All belongings taken with patient. Crisis numbers provided to patient.
== END 2025-06-01 11:25 | disposition home or self-care (01) | DRG 885 ==
LOC: HO.ED 05-26 16:47 → HO.PADLT16 05-27 11:21
PROVIDERS: Emergency Medicine; Internal Medicine; Nurse Practitioner Family; Admitting Provider Registered Nurse; Emergency Provider Emergency Medicine; PCP Nurse Practitioner Family; Responsible Provider Registered Nurse; Visit Provider Psychiatry & Neurology Psychiatry
DX: F33.2 Major depressive disorder, recurrent severe without psychotic features (principal); R45.851 Suicidal ideations; F17.210 Nicotine dependence, cigarettes, uncomplicated; I10 Essential (primary) hypertension; E11.9 Type 2 diabetes mellitus without complications; F60.3 Borderline personality disorder; F43.10 Post-traumatic stress disorder, unspecified; E78.5 Hyperlipidemia, unspecified; Z71.6 Tobacco abuse counseling; Z20.822 Contact with and (suspected) exposure to COVID-19; Z79.899 Other long term (current) drug therapy
CPT/HCPCS: 36415; 80048; 80053; 80061; 80307; 81001; 81003; 82565; 82947; 83036; 84443; 85025; 85048; 87637; 93005; 99285; S9485

== ENCOUNTER 2025-05-27 11:21 | Outpatient (BNV) | payer MEDICARE, MEDICAID, SELFPAY | END 2025-05-28 22:11 | PROVIDERS: Admitting Provider Registered Nurse; Emergency Provider Emergency Medicine; PCP Nurse Practitioner Family; Responsible Provider Registered Nurse; Visit Provider Internal Medicine Cardiovascular Disease | DX: R00.0 Tachycardia, unspecified (principal) | CPT/HCPCS: 93010 ==

== ENCOUNTER → 2025-05-27 11:21 | Outpatient (BNV) | payer MEDICARE, MEDICAID, SELFPAY | PROVIDERS: Admitting Provider Registered Nurse; Emergency Provider Emergency Medicine; PCP Nurse Practitioner Family; Visit Provider Nurse Practitioner Family | DX: I10 Essential (primary) hypertension (principal) | CPT/HCPCS: 99221 ==

== ENCOUNTER → 2025-05-27 11:21 | Outpatient (BNV) | payer MEDICARE, MEDICAID, SELFPAY | PROVIDERS: Admitting Provider Registered Nurse; Emergency Provider Emergency Medicine; PCP Nurse Practitioner Family; Responsible Provider Registered Nurse; Visit Provider Registered Nurse | DX: F33.2 Major depressive disorder, recurrent severe without psychotic features (principal); F43.10 Post-traumatic stress disorder, unspecified; F60.3 Borderline personality disorder | CPT/HCPCS: 90792; 99231; 99232; 99238 ==

== ENCOUNTER 2025-06-07 00:48 | Emergency (ER) | payer MEDICARE, MEDICAID, SELFPAY ==
[2025-06-07 00:53] VITALS: BP 170/90; PULSE 100; O2SAT 96; BMI 39.0
--- NOTE | 2025-06-07 00:54 | ED.PSYCH ---
HPI - Psych General Chief Complaint: Psychiatric Symptoms Stated Complaint: SI Source: patient and EMS Mode of arrival: EMS Limitations: no limitations History of Present Illness ED Provider: Dr. Eileen Ryan HPI Narrative: Patient comes to the emergency room via ambulance from her senior living, patient reports hearing voices telling her to hurt herself. Patient denies hurting herself, did not ingest any medications. Related Data Home Medications ?Medication ?Instructions ?Recorded ?Confirmed albuterol sulfate 90 mcg/actuation 2 puff inhalation Q6H PRN Wheezing 06/24/24 06/07/25 aerosol inhaler clozapine 100 mg tablet 200 mg PO BEDTIME 06/24/24 06/07/25 fluoxetine 40 mg capsule 80 mg PO DAILY 06/24/24 06/07/25 prazosin 2 mg capsule 4 mg PO BEDTIME 06/24/24 06/07/25 metformin 500 mg tablet 500 mg PO BID 07/15/24 06/07/25 haloperidol 5 mg tablet 5 mg PO BID@0900,1600 01/10/25 06/07/25 atorvastatin 10 mg tablet 10 mg PO DAILY 05/23/25 06/07/25 docusate sodium 100 mg capsule 100 mg PO BID 05/23/25 06/07/25 ferrous sulfate 325 mg (65 mg 325 mg PO BID 05/23/25 06/07/25 iron) tablet fluticasone fur. 200 mcg-umeclid 1 ea inhalation DAILY 05/23/25 06/07/25 62.5 mcg-vilant 25 mcg inhalat.powder (Trelegy Ellipta) glycopyrrolate 1 mg tablet 1 mg PO BID 05/23/25 06/07/25 ibuprofen 600 mg tablet 600 mg PO Q6H PRN Mild Pain (Scale 05/23/25 06/07/25 Score 1-4) lorazepam 0.5 mg tablet 0.5 mg PO BID 05/23/25 06/07/25 mirtazapine 15 mg tablet 15 mg PO BEDTIME 05/23/25 06/07/25 montelukast 10 mg tablet 10 mg PO DAILY 05/23/25 06/07/25 ciprofloxacin HCl 250 mg tablet 250 mg PO BID 06/07/25 06/07/25 Previous Rx's ?Medication ?Instructions ?Recorded amlodipine 2.5 mg tablet 7.5 mg PO DAILY 30 days #90 tabs 06/01/25 haloperidol 5 mg tablet 15 mg (3 x 5 mg) PO BEDTIME 30 06/01/25 days #90 tabs hydrochlorothiazide 12.5 mg tablet 12.5 mg PO DAILY 30 days #30 tabs 06/01/25 nystatin 100,000 unit/gram topical 1 appl topical BID 30 days #30 06/01/25 cream grams Allergies Allergy/AdvReac Type Severity Reaction Status Date / Time azithromycin (AZITHROMYCIN) Allergy Severe Rash Verified 06/07/25 01:06 Fish Containing Products Allergy Severe Anaphylaxis Verified 06/07/25 01:06 codeine (Codeine) Allergy Intermediate Rash Verified 06/07/25 01:06 Penicillins Allergy Intermediate Rash Verified 06/07/25 01:06 prednisone (Prednisone) Allergy Intermediate Rash Verified 06/07/25 01:06 Sulfa (Sulfonamide Allergy Intermediate Rash Verified 06/07/25 01:06 Antibiotics) (Sulfa (Sulfonamides)) ziprasidone (From Geodon) Allergy Intermediate dysuria, Verified 06/07/25 01:06 rash lithium Allergy Unknown Rash Verified 06/07/25 01:06 Review of Systems Review of Systems: Constitutional : No Weight loss, No Fever, No Chills, No Night Sweats, No Fatigue, No Malaise ENT/Mouth : No Hearing loss, No Ear Pain, No Nasal Congestion, No Sinus Pain, No Hoarseness, No sore throat, No Rhinorrhea, No Swallowing Difficulty Eyes: No Eye Pain, No Swelling, No Redness, No Foreign Body, No Discharge, No Vision Changes Cardiovascular : No Chest Pain, No SOB, No Dyspnea on Exertion, No Orthopnea, No Edema, No Palpitations Respiratory : No Cough, No Sputum, No Wheezing, No Smoke Exposure, No Dyspnea Gastrointestinal : No Nausea, No Vomiting, No Diarrhea, No Constipation, No abdominal Pain, No Hematochezia, No Melena Genitourinary : no irregular bleeding, No Dysuria, No Urinary Frequency, No Hematuria, No Urinary Incontinence, No Urgency, No Flank Pain, No Urinary Flow Changes, No Hesitancy Musculoskeletal : No joint pain, No Myalgias, No Joint Swelling Skin : No Skin Lesions, No rash Neuro : No Weakness, No Numbness, No Paresthesias, No Loss of Consciousness, No Dizziness, No Headache Psych : Complaining of anxiety, hearing voices telling her to hurt herself, denies intention SI or HI Heme/Lymph: No Bruising, No Bleeding,No Lymphadenopathy Endocrine : No Polyuria, No Polydipsia, No Temperature Intolerance [facility] Past Medical History Medical History Asthma Suicidal ideation MDD (major depressive disorder), recurrent episode, severe Chest pain Acute anxiety COVID-19 Full body hives Major depression Dizziness Suicide attempt UTI (urinary tract infection) Acetaminophen overdose COVID History of attempted suicide History of non-suicidal self-harm Hypomagnesemia Suicide attempt Suicide attempt by acetaminophen overdose Acetaminophen overdose Depression Diabetes type 2, controlled Borderline personality disorder PTSD (post-traumatic stress disorder) Overdose GERD (gastroesophageal reflux disease) Mood disorder Hyperlipidemia Bronchitis Social History Social History Household Members: Other Household Members Other:: senior living members Housing: Other Housing Other:: Group Do you presently have visiting nurse or other home services: Yes (senior living staff manage meds) Unable to assess alcohol history related to: Refusing to respond Alcohol intake: never Comment: sitter in room Patient Tobacco Use Status: Current everyday Tobacco user Tobacco use type: Cigarette Cigarette Packs Per Day: 1 Cigarettes Per Day: 20.0 Years Smoked: 23 Smoked in Last 30 Days: No e-Cigarette/Vaping Use: Never Used Second Hand Smoke Exposure: No Use of substances other than those prescribed or required for medical reasons: No Substance Use Type: Caffiene Advance Directives: No Advance Directives Information Provided: No Do you have a plan to hurt others: No Plan Patient : No service: No Current occupational status: unemployed and disabled Sexual orientation: Straight/Heterosexual Physical Exam Exam: Exam: Appearance: Alert. Oriented X3. No acute distress. Eyes: Pupils equal, round and reactive to light. ENT: Pharynx normal. Neck: Normal inspection. Neck supple. No lymph nodes noted. No crepitus CVS: Normal heart rate and rhythm. Pulses normal. Normal S1 and S2 Respiratory: No respiratory distress. Breath sounds normal. No Wheezing. No rales Abdomen: Soft and nontender. No rigidity. No distention. Skin: Skin warm and dry. Normal skin color. Normal skin turgor. Extremities: No lower extremity edema. No Lacerations. No Rash Neuro: Oriented X 3. No motor deficit. No sensory deficit. Moving all extremities. No slurred speech. CN 2 through 12 grossly intact Psych: Calm, anxious Vital Signs: Vital Signs: Last Vital Signs Temp 97.4 F 06/07/25 04:47 Pulse 103 H 06/07/25 04:47 Resp 16 06/07/25 04:47 BP 145/92 H 06/07/25 04:47 Pulse Ox 96 06/07/25 04:47 O2 Del Method Room Air 06/07/25 04:47 BMI result Body Mass Index 39.0 Course Course Course Narrative: Patient has had multiple times labs done. Last time was a proximally 2 weeks ago. We will get a urine toxicology in the urine test. Care team consult Physician observation started at 01:00 Reevaluation(s) Reevaluation #1: Time: 07:18 Date: 06/07/25 Provider: Kingsley Larson MD Patient in physician observation for psychiatric evaluation.? No acute events reported overnight. No current complaints. VS stable.? Patient is in bed search status/pending CARE team evaluation. Will continue to monitor. Reevaluation #2: 06/07/2025 8:23 AM Patient was seen by crisis cleared for discharge ; this will end the ED observation status Time: 08:22 Medical Decision Making Lab Data Labs: Lab Results 06/07/25 Range/Units 02:27 Urine Test NEGATIVE (NEGATIVE) Urine Opiates Screen Not Detected (Not Detect) Ur Buprenorphine Scrn Not Detected (Not Detect) ng/mL Ur Oxycodone Screen Not Detected (Not Detect) ng/mL Urine Methadone Screen Not Detected (Not Detect) ng/mL Urine Fentanyl Screen POSITIVE H (Not Detect) Ur Barbiturates Screen Not Detected (Not Detect) Ur Phencyclidine Scrn Not Detected (Not Detect) Ur Amphetamines Screen Not Detected (Not Detect) U Benzodiazepines Scrn Not Detected (Not Detect) Urine Cocaine Screen Not Detected (Not Detect) U Marijuana (THC) Screen Not Detected (Not Detect) Critical Care Time Critical Care Time Critical Care Time: Yes Total Critical Care Time: 35 Attestation: I have personally provided critical care time. Time includes review of lab data, radiology results, discussion with consultants, and monitoring for potential decompensation. Intervention performed as documented. Discharge Plan Discharge Clinical Impression: Auditory hallucination, Anxiety Patient Disposition: Home, Self-Care Instructions: Anxiety (ED) Prescriptions: No Action glycopyrrolate 1 mg tablet 1 mg PO BID atorvastatin 10 mg tablet 10 mg PO DAILY lorazepam 0.5 mg tablet 0.5 mg PO BID Rx Instructions: Take 1 tablet at 9am and 1 tablet at 4pm ferrous sulfate 325 mg (65 mg iron) tablet 325 mg PO BID docusate sodium 100 mg capsule 100 mg PO BID montelukast 10 mg tablet 10 mg PO DAILY mirtazapine 15 mg tablet 15 mg PO BEDTIME ibuprofen 600 mg tablet 600 mg PO Q6H PRN (Reason: Mild Pain (Scale Score 1-4)) Trelegy Ellipta 200-62.5-25 mcg blister with device 1 ea inhalation DAILY ciprofloxacin HCl 250 mg tablet 250 mg PO BID fluoxetine 40 mg capsule 80 mg PO DAILY clozapine 100 mg tablet 200 mg PO BEDTIME albuterol sulfate 90 mcg/actuation HFA aerosol inhaler 2 puff inhalation Q6H PRN (Reason: Wheezing) prazosin 2 mg capsule 4 mg PO BEDTIME metformin 500 mg tablet 500 mg PO BID haloperidol 5 mg tablet 5 mg PO BID@0900,1600 amlodipine 2.5 mg Tablet 7.5 mg PO DAILY 30 Days Qty: 90 0RF Protocol: Hold for SBP< HOLD for SBP < : 90 nystatin 100,000 unit/gram Cream 1 appl topical BID 30 Days Qty: 30 0RF Protocol: Apply to: Apply to: affected area hydrochlorothiazide 12.5 mg Tablet 12.5 mg PO DAILY 30 Days Qty: 30 0RF Protocol: Hold for SBP< HOLD for SBP < : 90 haloperidol 5 mg Tablet 15 mg PO BEDTIME 30 Days Qty: 90 0RF Interventions: [place]-Suicide Risk Severity Scale Last Done: 06/07/25 05:52 Print Language: Slovenian
[2025-06-07 01:18] VITALS: BP 135/92; PULSE 120; RESP 16; TEMP 36.6; O2SAT 98
[2025-06-07 02:38] LABS: UPreg QC Valid YES
[2025-06-07 02:52] LABS: Cannabinoid Screen Urine Not Detected (Not Detect)
[2025-06-07 04:47] VITALS: BP 145/92; PULSE 103; RESP 16; TEMP 36.3; O2SAT 96
--- NOTE | 2025-06-07 05:09 | PC.NURSE ---
this rn performed bedside med rec with pt assistance
--- NOTE | 2025-06-07 07:54 | PC.NURSE ---
pt states that she has been taking ciprofloxacin for a UTI. It was prescribed BID for 5 days. She states she has been taking it for 2 or 3 days but is unsure exactly. Called 2x contact numbers for information but there was no answer. will call again.
[2025-06-07 08:26] VITALS: BP 145/92; PULSE 103; RESP 16; TEMP 36.3; O2SAT 96
--- NOTE | 2025-06-07 08:30 | MHC.CARE ---
Pt denies SI, and HI. She does not present as an imminent risk or meet the criteria for a higher level of care. ED provider in agreement with disposition. Pt to return to via [employer].
== END 2025-06-07 08:34 | disposition home or self-care (01) ==
PROVIDERS: Emergency Provider Emergency Medicine
DX: R44.0 Auditory hallucinations (principal); F41.9 Anxiety disorder, unspecified; R45.851 Suicidal ideations
CPT/HCPCS: 80307; 81025; 99284; 99285; S9485

== ENCOUNTER 2025-06-07 21:25 | Emergency (ER) | payer MEDICARE, MEDICAID, SELFPAY ==
--- NOTE | 2025-06-07 | ECG_ITS ---
Test Reason : CP Blood Pressure : */* mmHG Vent. Rate : 127 BPM Atrial Rate : 127 BPM P-R Int : 150 ms QRS Dur : 80 ms QT Int : 308 ms P-R-T Axes : 46 21 53 degrees QTcB Int : 447 ms Sinus tachycardia Otherwise normal ECG When compared with ECG of 28-May-2025 22:11, No significant change was found Referred By: Generic ED Physician Electronically Signed By: MAURI COLE
[2025-06-07 21:49] VITALS: BP 172/102; PULSE 133; O2SAT 98
--- NOTE | 2025-06-07 21:49 | MHC.EDTECH ---
Did climate change risk assessor with Adam from security in family room. Pt complained of CP. Ekg was ordered and done. Pts belongings are in locker 1 in the pod
[2025-06-07 22:02] VITALS: BP 133/96; PULSE 117; RESP 19; TEMP 36.7; O2SAT 96; BMI 40.0
[2025-06-07 23:27] LABS: Hematocrit 34.9 % (37.0-47.0); Hemoglobin 12.3 g/dl (12.0-16.0); Mean Corpuscular HGB Conc 35.2 g/dl (31.0-35.0); Mean Corpuscular Hemoglobin 31.9 pg (27.0-33.0); Mean Corpuscular Volume 90.6 fL (80.0-98.0); NRBC Abs Auto 0.000 X10*3/uL (0.0-0.012); NRBC Pct Auto 0.0 /100WBC (0.0-0.2); Platelet Count 326 X10*3/uL (160-400); Red Blood Count 3.85 X10*6/uL (4.20-5.50); White Blood Count 10.5 X10*3/uL (4.8-10.8)
--- OUTSIDE RECORDS SUMMARY | 2025-06-08 00:22 | XMS_ITS | Clinical Summary ---
Author Organization [facility] Address [address] [address] Phone Care Team Providers Care Lead Trainer Name Role Phone Maribel Marquez NP Primary Care Provider + Allergies Active Allergy Reactions Criticality Noted Date Comments Azithromycin 05/18/2023 Codeine 04/21/2009 Unknown reaction [place] Other (See Comments) 02/27/2013 pt reports 01/17/13 [...] EST) SODIUM 140 136 - 145 mmol/L [facility] POTASSIUM 3.7 3.4 - 5.1 mmol/L [facility] CHLORIDE 102 98 - 107 mmol/L [facility] CO2 23 22 - 31 mmol/L [facility] BUN 12 6 - 23 mg/dL [facility] CREATININE 0.63 0.50 - 1.20 mg/dL [facility] GLUCOSE 160(H) 70 - 100 mg/dL [facility] CALCIUM 9.2 8.8 - 10.7 mg/dL [facility] EGFR 111 >59 mL/min/1.7 3m2 [facility] Comment:Estimated glomerular filtration rate calculated using the CKD-EPI refit equation. ANION GAP 15 7 - 17 mmol/L [facility] Blood 08/24/2024 3:05 AM EST 08/24/2024 3:15 AM EST Parvez Duenas MD, MPH LAB BLOOD ORDERABLES F inal Result Performing Organization Address City/State/[facility] de Phone Number [facility] [address] [place] [phone] from Last 3 Months or Most Recently Relevant [place] [id number] [facility] [place] [facility] [place] [facility] [place] [id number] [place] [address] [place] MED[place]ARE PART A & B [facility] MEDICARE PART A & B Care Teams Lead Trainer Relationship Specialty Start Date End Date Maribel Marquez NP [address] [place] [address] PCP - General Nurse Practitioner 04/02/24 Additional Source Comments The information contained in this document represents components of the legal health record. It is not the complete legal health record.[facility]
[2025-06-08 01:13] LABS: Alanine Aminotransferase 23 U/L (0-31); Albumin Level 4.5 g/dL (3.5-5.0); Alkaline Phosphatase 190 U/L (39-117); Anion Gap 18 (12-20); Aspartate Amino Transferase 20 U/L (5-31); Blood Urea Nitrogen 10 mg/dL (9-16); Calcium 9.1 mg/dL (8.4-10.2); Carbon Dioxide 23 mmol/L (22-29); Chloride 100 mmol/L (96-108); Creatinine Clr Calc Pharmacy 133.9; Estimated Glomerular Filt Rate > 60; Potassium 3.4 mmol/L (3.3-5.1); Sodium 138 mmol/L (135-145); Total Protein 7.1 g/dL (6.5-8.0)
--- NOTE | 2025-06-08 01:13 | ED.GENADULT ---
HPI - General Adult General Chief complaint: Psychiatric Symptoms Stated complaint: Hearing voices telling her to kill herself Time Seen by Provider: 06/07/25 22:16 Source: patient Limitations: no limitations History of Present Illness ED Provider: Carolina Rouse PA-C HPI narrative: 49-year-old female with a history of PTSD, depression, GERD, type 2 diabetes borderline personality disorder, chronic auditory and visual hallucinations, chronic suicidal ideation, chronic cutting behaviors who presents with SI. Patient states she has been having auditory hallucinations telling her to ?kill herself?. Patient states she has a plan to ?run away from her retirement an overdose on medication?. Patient also verbalized to EMS that she has a plan to ?drank nail Icelandic?. Patient states she is also having visual hallucinations, ?seeing her father ?. Related Data Home Medications ?Medication ?Instructions ?Recorded ?Confirmed albuterol sulfate 90 mcg/actuation 2 puff inhalation Q6H PRN Wheezing 06/24/24 06/07/25 aerosol inhaler clozapine 100 mg tablet 200 mg PO BEDTIME 06/24/24 06/07/25 fluoxetine 40 mg capsule 80 mg PO DAILY 06/24/24 06/07/25 prazosin 2 mg capsule 4 mg PO BEDTIME 06/24/24 06/07/25 metformin 500 mg tablet 500 mg PO BID 07/15/24 06/07/25 haloperidol 5 mg tablet 5 mg PO BID@0900,1600 01/10/25 06/07/25 atorvastatin 10 mg tablet 10 mg PO DAILY 05/23/25 06/07/25 docusate sodium 100 mg capsule 100 mg PO BID 05/23/25 06/07/25 ferrous sulfate 325 mg (65 mg 325 mg PO BID 05/23/25 06/07/25 iron) tablet fluticasone fur. 200 mcg-umeclid 1 ea inhalation DAILY 05/23/25 06/07/25 62.5 mcg-vilant 25 mcg inhalat.powder (Trelegy Ellipta) glycopyrrolate 1 mg tablet 1 mg PO BID 05/23/25 06/07/25 ibuprofen 600 mg tablet 600 mg PO Q6H PRN Mild Pain (Scale 05/23/25 06/07/25 Score 1-4) lorazepam 0.5 mg tablet 0.5 mg PO BID 05/23/25 06/07/25 mirtazapine 15 mg tablet 15 mg PO BEDTIME 05/23/25 06/07/25 montelukast 10 mg tablet 10 mg PO DAILY 05/23/25 06/07/25 ciprofloxacin HCl 250 mg tablet 250 mg PO BID 06/07/25 06/07/25 Previous Rx's ?Medication ?Instructions ?Recorded amlodipine 2.5 mg tablet 7.5 mg PO DAILY 30 days #90 tabs 06/01/25 haloperidol 5 mg tablet 15 mg (3 x 5 mg) PO BEDTIME 30 06/01/25 days #90 tabs hydrochlorothiazide 12.5 mg tablet 12.5 mg PO DAILY 30 days #30 tabs 06/01/25 nystatin 100,000 unit/gram topical 1 appl topical BID 30 days #30 06/01/25 cream grams Allergies Allergy/AdvReac Type Severity Reaction Status Date / Time azithromycin (AZITHROMYCIN) Allergy Severe Rash Verified 06/07/25 22:03 Fish Containing Products Allergy Severe Anaphylaxis Verified 06/07/25 22:03 codeine (Codeine) Allergy Intermediate Rash Verified 06/07/25 22:03 Penicillins Allergy Intermediate Rash Verified 06/07/25 22:03 prednisone (Prednisone) Allergy Intermediate Rash Verified 06/07/25 22:03 Sulfa (Sulfonamide Allergy Intermediate Rash Verified 06/07/25 22:03 Antibiotics) (Sulfa (Sulfonamides)) ziprasidone (From Geodon) Allergy Intermediate dysuria, Verified 06/07/25 22:03 rash lithium Allergy Unknown Rash Verified 06/07/25 22:03 Review of Systems Review of Systems: Yes all other systems are reviewed and are negative Constitutional: Constitutional: Denies fatigue and Denies fever(s) Cardiovascular: Cardiovascular: Denies chest pain and Denies dyspnea Respiratory: Respiratory: Denies cough and Denies dyspnea Gastrointestinal: Gastrointestinal: Denies abdominal pain, Denies nausea and Denies vomiting Endocrine: Endocrine: Denies fatigue PMFSH Past Medical History Attestation statement: The following information was validated with the patient. Medical History Asthma Suicidal ideation MDD (major depressive disorder), recurrent episode, severe Chest pain Acute anxiety COVID-19 Full body hives Major depression Dizziness Suicide attempt UTI (urinary tract infection) Acetaminophen overdose COVID History of attempted suicide History of non-suicidal self-harm Hypomagnesemia Suicide attempt Suicide attempt by acetaminophen overdose Acetaminophen overdose Depression Diabetes type 2, controlled Borderline personality disorder PTSD (post-traumatic stress disorder) Overdose GERD (gastroesophageal reflux disease) Mood disorder Hyperlipidemia Bronchitis Social History Social History Household Members: Other Household Members Other:: retirement members Housing: Other Housing Other:: Group Do you presently have visiting nurse or other home services: Yes (retirement staff manage meds) Unable to assess alcohol history related to: Refusing to respond Alcohol intake: never Comment: sitter in room Patient Tobacco Use Status: Current everyday Tobacco user Tobacco use type: Cigarette Cigarette Packs Per Day: 1 Cigarettes Per Day: 20.0 Years Smoked: 23 Smoked in Last 30 Days: Yes e-Cigarette/Vaping Use: Never Used Second Hand Smoke Exposure: No Use of substances other than those prescribed or required for medical reasons: No Substance Use Type: Caffiene Advance Directives: No Advance Directives Information Provided: Yes Patient : No service: No Current occupational status: unemployed and disabled Sexual orientation: Straight/Heterosexual Physical Exam ED Vital Signs: Vital Signs - 24 hr 06/08/25 06:33 06/08/25 06:33 06/08/25 06:48 Temperature 98.5 F Pulse Rate 97 95 Respiratory Rate 17 17 Blood Pressure 173/101 H 173/101 H 142/89 H Pulse Oximetry 96 98 Oxygen Delivery Method Room Air Room Air 06/08/25 08:00 06/08/25 10:00 06/08/25 10:46 Temperature 98.2 F 98.4 F 98.4 F Pulse Rate 95 89 89 Respiratory Rate 20 19 19 Blood Pressure 142/74 H 149/88 H 149/88 H Pulse Oximetry 99 100 100 Oxygen Delivery Method Room Air Room Air Room Air BMI result Body Mass Index 40.0 Const Other: Alert Orientation/consciousness: patient oriented x3 Resp Effort & Inspection: normal respiratory effort Cardio Other: Normal peripheral perfusion Skin Other: Warm dry no rash Neuro General: patient oriented x3, gait normal, no focal motor deficits and CN's II-XI intact bilaterally Psych Other: Flat affect Course Reevaluation(s) Reevaluation #1: Time: 01:28 Date: 06/08/25 Provider: TIMI Edwards Patient in physician observation for psychiatric evaluation.? No acute events reported overnight. No current complaints. VS stable.? Patient is in bed search status/pending CARE team evaluation. Will continue to monitor. Reevaluation #2: DR. Allison's progress note; 06/08/2025 ;10;13. No SI, no HI, no hallucination, care team input is appreciated, patient is well known to our ED staff and patient is acting at her baseline, will discontinue physician observation and discharge. Time: 10:14 Medications Administered Discontinued Medications Generic Name Dose Route Start Last Admin Trade Name Elmer PRN Reason Stop Dose Admin Amlodipine Besylate 2.5 mg 06/08/25 06:30 06/08/25 06:33 Amlodipine Besylate 2.5 Mg Tablet PO 06/08/25 06:31 2.5 mg ONCE ONE Administration Protocol Medical Decision Making Medical Decision Making MDM Narrative: 49-year-old female with a history of PTSD, depression, GERD, type 2 diabetes borderline personality disorder, chronic auditory and visual hallucinations, chronic suicidal ideation, chronic cutting behaviors who presents with SI. Patient states she has been having auditory hallucinations telling her to ?kill herself?. Patient states she has a plan to ?run away from her retirement an overdose on medication?. Patient also verbalized to EMS that she has a plan to ?drank nail [place]?. Patient states she is also having visual hallucinations, ?seeing her father ?. Problem: Psychiatric illness History: Per patient I have considered the following differential diagnoses: SI, HI, decompensated psychiatric illness, drug/alcohol intoxication Plan: Screening labs including serum ethanol and drug screen obtained, I will place a care team consult. Sadly, much of what the patient is stating appears chronic in nature. I have independently reviewed the following tests: Labs: No leukocytosis, not anemic, no electrolyte abnormality, ethanol less than 10, drug screen pad Lab Data 06/07/25 23:20 06/07/25 23:20 Labs: Lab Results 06/07/25 Range/Units 23:20 WBC 10.5 (4.8-10.8) X10*3/uL RBC 3.85 L (4.20-5.50) X10*6/uL Hgb 12.3 (12.0-16.0) g/dl Hct 34.9 L (37.0-47.0) % MCV 90.6 (80.0-98.0) fL MCH 31.9 (27.0-33.0) pg MCHC 35.2 H (31.0-35.0) g/dl RDW 13.2 (11.0-16.0) % Plt Count 326 (160-400) X10*3/uL MPV 9.1 L (9.4-12.3) fL Absolute Nucleated RBC 0.000 (0.0-0.012) X10*3/uL Nucleated RBC % (auto) 0.0 (0.0-0.2) /100WBC Sodium 138 (135-145) mmol/L Potassium 3.4 D (3.3-5.1) mmol/L Chloride 100 (96-108) mmol/L Carbon Dioxide 23 (22-29) mmol/L Anion Gap 18 (12-20) BUN 10 (9-16) mg/dL Creatinine 0.66 (0.5-1.4) mg/dL Estim Creat Clear Calc 133.9 Estimated GFR > 60 Random Glucose 227 H (60-115) mg/dL Calcium 9.1 (8.4-10.2) mg/dL Total Bilirubin 0.2 (0.0-1.0) mg/dL AST 20 (5-31) U/L ALT 23 (0-31) U/L Alkaline Phosphatase 190 H (39-117) U/L Total Protein 7.1 (6.5-8.0) g/dL Albumin 4.5 (3.5-5.0) g/dL Ethyl Alcohol < 10 mg/dL Discharge Plan Discharge Clinical Impression: Acute anxiety Patient Disposition: Home, Self-Care Instructions: Anxiety (ED) Prescriptions: No Action glycopyrrolate 1 mg tablet 1 mg PO BID atorvastatin 10 mg tablet 10 mg PO DAILY lorazepam 0.5 mg tablet 0.5 mg PO BID Rx Instructions: Take 1 tablet at 9am and 1 tablet at 4pm ferrous sulfate 325 mg (65 mg iron) tablet 325 mg PO BID docusate sodium 100 mg capsule 100 mg PO BID montelukast 10 mg tablet 10 mg PO DAILY mirtazapine 15 mg tablet 15 mg PO BEDTIME ibuprofen 600 mg tablet 600 mg PO Q6H PRN (Reason: Mild Pain (Scale Score 1-4)) Trelegy Ellipta 200-62.5-25 mcg blister with device 1 ea inhalation DAILY ciprofloxacin HCl 250 mg tablet 250 mg PO BID fluoxetine 40 mg capsule 80 mg PO DAILY clozapine 100 mg tablet 200 mg PO BEDTIME albuterol sulfate 90 mcg/actuation HFA aerosol inhaler 2 puff inhalation Q6H PRN (Reason: Wheezing) prazosin 2 mg capsule 4 mg PO BEDTIME metformin 500 mg tablet 500 mg PO BID haloperidol 5 mg tablet 5 mg PO BID@0900,1600 amlodipine 2.5 mg Tablet 7.5 mg PO DAILY 30 Days Qty: 90 0RF Protocol: Hold for SBP< HOLD for SBP < : 90 nystatin 100,000 unit/gram Cream 1 appl topical BID 30 Days Qty: 30 0RF Protocol: Apply to: Apply to: affected area hydrochlorothiazide 12.5 mg Tablet 12.5 mg PO DAILY 30 Days Qty: 30 0RF Protocol: Hold for SBP< HOLD for SBP < : 90 haloperidol 5 mg Tablet 15 mg PO BEDTIME 30 Days Qty: 90 0RF Interventions: [place]-Suicide Risk Severity Scale Last Done: 06/07/25 22:15 ED Discharge Assessment Last Done: 06/08/25 10:46 Discharge Date/Time: 06/08/25 10:48 Print Language: Thai
--- NOTE | 2025-06-08 01:50 | PC.NURSE ---
Patient is calm and cooperative, ambulated to restroom and back to her room with a steady gait. Patient requested peanut butter and grape jelly sandwich with orange juice, provided and tolerated well. Patient currently resting in bed, eyes closed, RR 16, symmetrical chest wall rise and wall noted, awaiting to be seen by care team.
--- NOTE | 2025-06-08 06:31 | PC.NURSE ---
BP 173/101, P 97. Dr. Genao notified, verbal order received for Amlodipine 2.5 mg po once.
[2025-06-08 06:33] VITALS: BP 173/101; PULSE 97; RESP 17; TEMP 36.9; O2SAT 96
[2025-06-08 06:48] VITALS: BP 142/89; PULSE 95; RESP 17; O2SAT 98
[2025-06-08 08:00] VITALS: BP 142/74; PULSE 95; RESP 20; TEMP 36.8; O2SAT 99
--- NOTE | 2025-06-08 08:03 | PC.NURSE ---
Addendum entered by Blanca Davenport RN 06/08/25 08:05: Patient is a 49-year-old female with a history of PTSD, depression, GERD, type 2 diabetes borderline personality disorder, chronic auditory and visual hallucinations, chronic suicidal ideation, chronic cutting behaviors who presents with SI. Patient states she has been having auditory and visual hallucinations telling her to ?kill herself?. Patient states she has a plan to ?run away from her assisted an overdose on medication? or ?drank nail Macedonian?. Pending CARE team eval. Original Note: Medical History Asthma Suicidal ideation MDD (major depressive disorder), recurrent episode, severe Chest pain Acute anxiety COVID-19 Full body hives Major depression Dizziness Suicide attempt UTI (urinary tract infection) Acetaminophen overdose COVID History of attempted suicide History of non-suicidal self-harm Hypomagnesemia Suicide attempt Suicide attempt by acetaminophen overdose Acetaminophen overdose Depression Diabetes type 2, controlled Borderline personality disorder PTSD (post-traumatic stress disorder) Overdose GERD (gastroesophageal reflux disease) Mood disorder Hyperlipidemia Bronchitis
[2025-06-08 10:00] VITALS: BP 149/88; PULSE 89; RESP 19; TEMP 36.9; O2SAT 100
[2025-06-08 10:46] VITALS: BP 149/88; PULSE 89; RESP 19; TEMP 36.9; O2SAT 100
--- NOTE | 2025-06-09 11:57 | MHC.CARE ---
Pt has been referred to [facility] for a 3 day follow up and to be placed on 7 day alert
== END 2025-06-08 10:48 | disposition home or self-care (01) ==
PROVIDERS: Emergency Provider Emergency Medicine
DX: F41.9 Anxiety disorder, unspecified (principal); R44.0 Auditory hallucinations; R07.89 Other chest pain; R00.0 Tachycardia, unspecified; E11.9 Type 2 diabetes mellitus without complications; R45.851 Suicidal ideations; Z79.4 Long term (current) use of insulin; Z79.899 Other long term (current) drug therapy; F17.210 Nicotine dependence, cigarettes, uncomplicated; Z79.84 Long term (current) use of oral hypoglycemic drugs; Z51.81 Encounter for therapeutic drug level monitoring
CPT/HCPCS: 36415; 80053; 80307; 85027; 93005; 99285; S9485

== ENCOUNTER → 2025-06-07 21:36 | Outpatient (BNV) | payer MEDICARE, MEDICAID, SELFPAY | PROVIDERS: Emergency Provider Emergency Medicine; Visit Provider Internal Medicine | DX: R00.0 Tachycardia, unspecified (principal) | CPT/HCPCS: 93010 ==

== ENCOUNTER 2025-06-15 15:14 | Emergency (ER) | payer MEDICARE, MEDICAID, SELFPAY ==
--- NOTE | 2025-06-15 | ECG_ITS ---
Test Reason : SI Blood Pressure : */* mmHG Vent. Rate : 113 BPM Atrial Rate : 113 BPM P-R Int : 168 ms QRS Dur : 86 ms QT Int : 338 ms P-R-T Axes : 38 15 46 degrees QTcB Int : 463 ms Sinus tachycardia Septal infarct , age undetermined Abnormal ECG When compared with ECG of 07-Jun-2025 21:36, No significant change was found Referred By: Generic ED Physician Electronically Signed By: Fabricio Kay
[2025-06-15 15:39] VITALS: BP 151/104; PULSE 122; RESP 18; TEMP 36.4; O2SAT 94; BMI 41.5
--- OUTSIDE RECORDS SUMMARY | 2025-06-15 15:46 | XMS_ITS | Encounter Summary ---
Author Organization [facility] Address [address] [place] [address] Care Team Providers Care Certified Ophthalmic Technologist Name Role Phone Nikki Alcantar MD Primary Care Provider [phone] Michelle Norris MD Primary Care Provider Unavail [facility] Primary Care Provider [facility] Michelle Norris MD Primary Care Provider Unavail [facility] Rosetta Diamond MD Primary Care Provider + Encounter Details Date Type Department Care Team Description 05/06/2009 Hospital Medical Records [address] [place] [id number] Magdalena Boyd MD Social History Tobacco Use [...] filedocumented in this encounter Care Teams Certified Ophthalmic Technologist Relationship Specialty Start Date End Date Nikki Alcantar MD [address] [place] [address] 15395 PCP - General 06/26/05 03/04/17 Michelle Norris MD [address] [place] [address] 83972 PCP - General Internal Medicine 03/05/17 03/16/21 [facility], Pcp [address] [place] [address] 63060 PCP - General Internal Medicine 03/17/21 05/04/21 Michelle Norris MD [address] [place] [address] 22353 PCP - General Internal Medicine 05/05/21 09/13/22 Rosetta Diamond MD [address] [place] [address] 01020 PCP - General Internal Medicine 09/14/22 documented as of this encounter
--- OUTSIDE RECORDS SUMMARY | 2025-06-15 15:46 | XMS_ITS | Encounter Summary ---
Author Organization [facility] Address [address] [place] [address] Care Team Providers Care Park Interpretive Specialist Name Role Phone Nikki Alcantar MD Primary Care Provider [phone] Michelle Norris MD Primary Care Provider Unavail [facility] Primary Care Provider [facility] Michelle Norris MD Primary Care Provider Unavail [facility] Rosetta Diamond MD Primary Care Provider + Encounter Details Date Type Department Care Team Description 03/11/2016 Hospital Medical Records [address] [place] [address]359 Reena Dominguez Social History Tobacco Use Types [...] on filedocumented in this encounter Care Teams Park Interpretive Specialist Relationship Specialty Start Date End Date Nikki Alcantar MD [address] [place] [address] 38532 PCP - General 06/26/05 03/04/17 Michelle Norris MD [address] [place] [address] PCP - General Internal Medicine 03/05/17 03/16/[facility] [address] [place] [address] PCP - General Internal Medicine 03/17/21 05/04/21 Michelle Norris MD [address] [place] [address] [place] [address] PCP - General Internal Medicine 05/05/21 09/13/22 Rosetta Diamond MD [address] [place], [place] [phone] PCP - General Internal Medicine 09/14/22 documented as of this encounter
--- OUTSIDE RECORDS SUMMARY | 2025-06-15 15:46 | XMS_ITS | Encounter Summary ---
Author Organization [facility] Address [address] [place] [address] Care Team Providers Care Cloth Coverer Name Role Phone Nikki Alcantar MD Primary Care Provider [phone] Michelle Norris MD Primary Care Provider Unavail [facility] Primary Care Provider [facility] Michelle Norris MD Primary Care Provider Unavail [facility] Rosetta Diamond MD Primary Care Provider + Encounter Details Date Type Department Care Team Description 12/03/2008 Hospital Medical Records [address] [place] [address] Social History Tobacco Use Types Packs/Day Years [...] filedocumented in this encounter Care Teams Cloth Coverer Relationship Specialty Start Date End Date Nikki Alcantar MD [address] [place] [address] 73942 PCP - General 06/26/05 03/04/17 Michelle Norris MD [address] [place] [address] PCP - General Internal Medicine 03/05/17 03/16/21 [facility], Pcp [address] [place] [address] 22229 PCP - General Internal Medicine 03/17/21 05/04/21 Michelle Norris MD [address] [place] [address] 36159 PCP - General Internal Medicine 05/05/21 09/13/22 Rosetta Diamond MD [address] [place] [address] KARTIK CHEN 57910 PCP - General Internal Medicine 09/14/22 documented as of this encounter
--- OUTSIDE RECORDS SUMMARY | 2025-06-15 15:46 | XMS_ITS | Encounter Summary ---
Author Organization [facility] Address [address] [place] [address] Care Team Providers Care Dictating Transcribing Machine Servicer Name Role Phone Nikki Alcantar MD Primary Care Provider [phone] Michelle Norris MD Primary Care Provider Unavail [facility] Primary Care Provider [facility] Michelle Norris MD Primary Care Provider Unavail [facility] Rosetta Diamond MD Primary Care Provider + Encounter Details Date Type Department Care Team Description 03/13/2016 Hospital Medical Records [address] [place] [id number] Carlos Landrum Social History Tobacco Use Types [...] on filedocumented in this encounter Care Teams Dictating Transcribing Machine Servicer Relationship Specialty Start Date End Date Nikki Alcantar MD [address] [place] [address] 10831 PCP - General 06/26/05 03/04/17 Michelle Norris MD [address] [place] [address] 25839 PCP - General Internal Medicine 03/05/17 03/16/21 [facility], Pcp [address] [place] [address] 96799 PCP - General Internal Medicine 03/17/21 05/04/21 Michelle Norris MD [address] [place] [address] 67118 PCP - General Internal Medicine 05/05/21 09/13/22 Rosetta Diamond MD [address] [place] [address] PCP - General Internal Medicine 09/14/22 documented as of this encounter
--- OUTSIDE RECORDS SUMMARY | 2025-06-15 15:46 | XMS_ITS | Encounter Summary ---
Author Organization [facility] Address [address] [place] [address] Care Team Providers Care Hotel Guest Service Agent Name Role Phone Michelle Norris MD Primary Care Provider [facility]ail [facility] Pcp [facility] Michelle Norris MD Primary Care Provider Unavail able Rosetta Diamond MD Primary Care Provider + Encounter Details Date Type Department Care Team Description 04/21/2019 Hospital Medical Records [address] [place] [id number] Ron Frausto Social History Tobacco Use Types [...] on filedocumented in this encounter Care Teams Hotel Guest Service Agent Relationship Specialty Start Date End Date Michelle Norris MD PCP - General Internal Medicine 03/05/17 03/16/21 [facility], Pcp PCP - General Internal Medicine 03/17/21 05/04/21 Michelle Norris MD PCP - General Internal Medicine 05/05/21 09/13/22 Rosetta Diamond MD [address] [place] [address] 9[address]01 PCP - General Internal Medicine 09/14/22 documented as of this encounter
--- OUTSIDE RECORDS SUMMARY | 2025-06-15 15:46 | XMS_ITS | Encounter Summary ---
Author Organization [facility] Address [address] [place] [address] Care Team Providers Care Chicken Cleaner Name Role Phone Nikki Alcantar MD Primary Care Provider [phone] Michelle Norris MD Primary Care Provider Unavail [facility] Primary Care Provider [facility] Michelle Norris MD Primary Care Provider Unavail [facility] Rosetta Diamond MD Primary Care Provider + Encounter Details Date Type Department Care Team Description 03/28/2016 Hospital Medical Records [address] [place] [address] Social History Tobacco Use Types Packs/Day Years [...] on filedocumented in this encounter Care Teams Chicken Cleaner Relationship Specialty Start Date End Date Nikki Alcantar MD [address] [place] [address] PCP - General 06/26/05 03/04/17 Michelle Norris MD [address] [place] [address] 68714 PCP - General Internal Medicine 03/05/17 03/16/21 [facility], Pcp [address] [place] [address] 73921 PCP - General Internal Medicine 03/17/21 05/04/21 Michelle Norris MD [address] [place] [address] 62858 PCP - General Internal Medicine 05/05/21 09/13/22 Rosetta Diamond MD [address] [place] [address] PCP - General Internal Medicine 09/14/22 documented as of this encounter
--- OUTSIDE RECORDS SUMMARY | 2025-06-15 15:46 | XMS_ITS | Encounter Summary ---
Author Organization [facility] Address [address] [place] [address] Care Team Providers Care Web Merchant Name Role Phone Michelle Norris MD Primary Care Provider Unavail able [facility], [facility] Primary Care Provider Micehlle Abdi MD Primary Care Provider Unavail able Rosetta Diamond MD Primary Care Provider + Reason for Visit * Reason Onset Date Comments TEST RESULTS 06/10/2019 result notes Encounter Details Date Type Department Care Team Description 06/10/2019 Telephone Adult Medicine [address] [address] Lona Rowell PA-C TEST RESULTS (result notes) [...] 11:20 AM EDT Patient returning phone call [phone] * Telephone Encounter - Linda Torres M.A. [...] filedocumented in this encounter Care Teams Web Merchant Relationship Specialty Start Date End Date Michelle Norris MD PCP - General Internal Medicine 03/05/17 03/16/21 [facility] PCP - General Internal Medicine 03/17/21 05/04/21 Michelle Norris MD PCP - General Internal Medicine 05/05/21 09/13/22 Rosetta Diamond MD [address] [place] [address] PCP - General Internal Medicine 09/14/22 documented as of this encounter
--- OUTSIDE RECORDS SUMMARY | 2025-06-15 15:46 | XMS_ITS | Encounter Summary ---
Author Organization [facility] Address [address] [place] [address] Care Team Providers Care Ton Cylinder Inspector Name Role Phone Michelle Norris MD Primary Care Provider [facility]ail [facility], Pcp [facility] Michelle Norris MD Primary Care Provider Unavail able Rosetta Diamond MD Primary Care Provider + Encounter Details Date Type Department Care Team Description 02/03/2019 Hospital Medical Records [address] [place] [address] Social History Tobacco Use Types Packs/Day Years [...] on filedocumented in this encounter Care Teams Ton Cylinder Inspector Relationship Specialty Start Date End Date Michelle Norris MD PCP - General Internal Medicine 03/05/17 03/16/21 [facility], Pcp PCP - General Internal Medicine 03/17/21 05/04/21 Michelle Norris MD PCP - General Internal Medicine 05/05/21 09/13/22 Rosetta Diamond MD [address] [place] [address] PCP - General Internal Medicine 09/14/22 documented as of this encounter
--- OUTSIDE RECORDS SUMMARY | 2025-06-15 15:46 | XMS_ITS | Encounter Summary ---
Author Organization [facility] Address [address] [place] [address] Care Team Providers Care Vendor Management Specialist Name Role Phone Michelle Norris MD Primary Care Provider Unavail able [facility] Michelle Lagos MD Primary Care Provider Unavail able Rosetta Diamond MD Primary Care Provider + Reason for Visit * Reason Onset Date Comments VNA Call 05/19/2019 Encounter Details Date Type Department Care Team Description 05/19/2019 Telephone Adult Medicine [address] [address] Michelle Norris MD VNA Call Social History [...] EDT Aleciaek with [employer] She is from [employer] no a VNA The are an outreach program for this patient the Will send a med list and discharge summary * Telephone Encounter - Deanna Oglesby - 05/19/2019 1:19 PM EDT VNA CALL Which VNA office is calling? [employer] Full name of caller: [employer] The caller [...] on filedocumented in this encounter Care Teams Vendor Management Specialist Relationship Specialty Start Date End Date Michelle Norris MD PCP - General Internal Medicine 03/05/17 03/16/21 [facility] PCP - General Internal Medicine 03/17/21 05/04/21 Michelle Norris MD PCP - General Internal Medicine 05/05/21 09/13/22 Rosetta Diamond MD [address] [place] [address] PCP - General Internal Medicine 09/14/22 documented as of this encounter
--- OUTSIDE RECORDS SUMMARY | 2025-06-15 15:46 | XMS_ITS | Encounter Summary ---
Author Organization [facility] Address [address] [place] [address] Care Team Providers Care Heater Tender Name Role Phone Michelle Norris MD Primary Care Provider [facility]ail [facility], Pcp [facility] Michelle Norris MD Primary Care Provider Unavail able Rosetta Diamond MD Primary Care Provider + Encounter Details Date Type Department Care Team Description 03/06/2019 Hospital Medical Records [address] [place] [address] Marlen Grande Social History Tobacco Use Types [...] on filedocumented in this encounter Care Teams Heater Tender Relationship Specialty Start Date End Date Michelle Norris MD PCP - General Internal Medicine 03/05/17 03/16/21 [facility], Pcp PCP - General Internal Medicine 03/17/21 05/04/21 Michlele Norris MD PCP - General Internal Medicine 05/05/21 09/13/22 Rosetta Diamond MD [address] [place] [address] PCP - General Internal Medicine 09/14/22 documented as of this encounter
--- OUTSIDE RECORDS SUMMARY | 2025-06-15 15:46 | XMS_ITS | Encounter Summary ---
Author Organization [facility] Address [address] [place] [address] Care Team Providers Care Career Services Coordinator Name Role Phone Nikki Alcantar MD Primary Care Provider [phone] Michelle Norris MD Primary Care Provider Unavail [facility], [facility] Primary Care Provider [facility] Michelle Norris MD Primary Care Provider Unavail [facility] Rosetta Diamond MD Primary Care Provider + Encounter Details Date Type Department Care Team Description 04/01/2009 Hospital Medical Records [address] [place] [address] Social History Tobacco Use Types Packs/Day Years [...] on filedocumented in this encounter Care Teams Career Services Coordinator Relationship Specialty Start Date End Date Nikki Alcantar MD [address] [place] [address]997 PCP - General 06/26/05 03/04/17 Michelle Norris MD [address] [place] [address] PCP - General Internal Medicine 03/05/17 03/16/21 [facility], Pcp [address] [place] [address] 98685 PCP - General Internal Medicine 03/17/21 05/04/21 Michelle Norris MD [address] [place] [address] PCP - General Internal Medicine 05/05/21 09/13/22 Rosetta Diamond MD [address] [place] [address] KARTIK CHEN [address]773 PCP - General Internal Medicine 09/14/22 documented as of this encounter
--- OUTSIDE RECORDS SUMMARY | 2025-06-15 15:46 | XMS_ITS | Encounter Summary ---
Author Organization [facility] Address [address] [place] [address] Care Team Providers Care Valet Parker Name Role Phone Nikki Alcantar MD Primary Care Provider [phone] Michelle Norris MD Primary Care Provider Unavail [facility] Primary Care Provider [facility] Michelle Norris MD Primary Care Provider Unavail [facility] Rosetta Diamond MD Primary Care Provider + Encounter Details Date Type Department Care Team Description 04/21/2008 Hospital Medical Records [address] [place] [address] Bandar Paul Social History Tobacco Use Types [...] on filedocumented in this encounter Care Teams Valet Parker Relationship Specialty Start Date End Date Nikki Alcantar MD [address] [place] [address]149 PCP - General 06/26/05 03/04/17 Michelle Norris MD [address] [place] [address] PCP - General Internal Medicine 03/05/17 03/16/21 [facility], Pcp [address] [place] [address] PCP - General Internal Medicine 03/17/21 05/04/21 Michelle Norris MD [address] [place], [place] [phone] PCP - General Internal Medicine 05/05/21 09/13/22 Rosetta Diamond MD [address] [place] [address] PCP - General Internal Medicine 09/14/22 documented as of this encounter
--- OUTSIDE RECORDS SUMMARY | 2025-06-15 15:46 | XMS_ITS | Encounter Summary ---
Author Organization [facility] Address [address] [place] [address] Care Team Providers Care Dural Mechanic Name Role Phone Nikki Alcantar MD Primary Care Provider [phone] Michelle Norris MD Primary Care Provider Unavail [facility] Primary Care Provider [facility] Michelle Norris MD Primary Care Provider Unavail [facility] Rosetta Diamond MD Primary Care Provider + Encounter Details Date Type Department Care Team Description 10/15/2008 Hospital Medical Records [address] [place] [phone] Hank Enciso Social History Tobacco Use Types [...] on filedocumented in this encounter Care Teams Dural Mechanic Relationship Specialty Start Date End Date Nikki Alcantar MD [address] [place] [address]47 PCP - General 06/26/05 03/04/17 Michelle Norris MD [address] [place] [address] PCP - General Internal Medicine 03/05/17 03/16/21 [facility], Pcp [address] [place] [address] 23411 PCP - General Internal Medicine 03/17/21 05/04/21 Michelle Norris MD [address] [place] [address] [place] [address] PCP - General Internal Medicine 05/05/21 09/13/22 Rosetta Diamond MD [address] [place], [place] [phone] PCP - General Internal Medicine 09/14/22 documented as of this encounter
--- OUTSIDE RECORDS SUMMARY | 2025-06-15 15:46 | XMS_ITS | Encounter Summary ---
Author Organization [facility] Address [address] [place] [address] Care Team Providers Care Monitoring Analyst Name Role Phone Michelle Norris MD Primary Care Provider [facility]ail [facility], Pcp [facility] Michelle Norris MD Primary Care Provider Unavail able Rosetta Diamond MD Primary Care Provider + Encounter Details Date Type Department Care Team Description 03/27/2019 Hospital Medical Records [address] [place] [address] Sourav Lucas Social History Tobacco Use Types [...] on filedocumented in this encounter Care Teams Monitoring Analyst Relationship Specialty Start Date End Date Michelle Norris MD PCP - General Internal Medicine 03/05/17 03/16/21 [facility], Pcp PCP - General Internal Medicine 03/17/21 05/04/21 Michelle Norris MD PCP - General Internal Medicine 05/05/21 09/13/22 Rosetta Diamond MD [address] [place] [address] PCP - General Internal Medicine 09/14/22 documented as of this encounter
--- OUTSIDE RECORDS SUMMARY | 2025-06-15 15:47 | XMS_ITS | Encounter Summary ---
Author Organization [facility] Address [address] [place] [address] Care Team Providers Care Box Turner Name Role Phone Nikki Alcantar MD Primary Care Provider [phone] Michelle Norris MD Primary Care Provider Unavail [facility] Primary Care Provider [facility] Michelle Norris MD Primary Care Provider Unavail [facility] Rosetta Diamond MD Primary Care Provider + Encounter Details Date Type Department Care Team Description 08/18/2011 Transfer Records Medical Records [address] [place] [id number] Abstract, Provider Social History Tobacco Use Types [...] on filedocumented in this encounter Care Teams Box Turner Relationship Specialty Start Date End Date Nikki Alcantar MD [address] [place] [address] PCP - General 06/26/05 03/04/17 Michelle Norris MD [address] [place] [address] PCP - General Internal Medicine 03/05/17 03/16/21 [facility], Pcp [address] [place] [address] PCP - General Internal Medicine 03/17/21 05/04/21 Michelle Norris MD [address] [place] [address] PCP - General Internal Medicine 05/05/21 09/13/22 Rosetta Diamond MD [address] [place], [place] [phone] PCP - General Internal Medicine 09/14/22 documented as of this encounter
--- OUTSIDE RECORDS SUMMARY | 2025-06-15 15:47 | XMS_ITS | Encounter Summary ---
Author Organization [facility] Address [address] [place] [address] Care Team Providers Care Fitness Centre Manager Name Role Phone Nikki Alcantar MD Primary Care Provider [phone] Michelle Norris MD Primary Care Provider Unavail [facility], [facility] Primary Care Provider [facility] Michelle Norris MD Primary Care Provider Unavail [facility] Rosetta Diamond MD Primary Care Provider + Encounter Details Date Type Department Care Team Description 10/28/2014 Hospital Medical Records [address] [place] [phone] Social History Tobacco Use Types Packs/Day Years [...] on filedocumented in this encounter Care Teams Fitness Centre Manager Relationship Specialty Start Date End Date Nikki Alcantar MD [address] [place] [address] PCP - General 06/26/05 03/04/17 Michelle Norris MD [address] [place] [address] PCP - General Internal Medicine 03/05/17 03/16/21 [facility], Pcp [address] [place] [address] PCP - General Internal Medicine 03/17/21 05/04/21 Michelle Norris MD [address] [place] [address]604 PCP - General Internal Medicine 05/05/21 09/13/22 Rosetta Diamond MD [address] [place] [address] KARTIK CHEN [address]31 PCP - General Internal Medicine 09/14/22 documented as of this encounter
--- OUTSIDE RECORDS SUMMARY | 2025-06-15 15:47 | XMS_ITS | Encounter Summary ---
Author Organization [facility] Address [address] [place] [address] Care Team Providers Care Director Of Operations For Therapy Name Role Phone Nikki Alcantar MD Primary Care Provider [phone] Michelle Norris MD Primary Care Provider Unavail [facility] Primary Care Provider [facility] Michelle Norris MD Primary Care Provider [facility]ail [facility] Rosetta Diamond MD Primary Care Provider + Encounter Details Date Type Department Care Team Description 02/10/2015 Hospital Medical Records [address] [place] [address] Social History Tobacco Use Types Packs/Day Years [...] this encounter Care Teams Director Of Operations For Therapy Relationship Specialty Start Date End Date Nikki Alcantar MD [address] [place] [address] PCP - General 06/26/05 03/04/17 Michelle Norris MD [address] [place] [address] PCP - General Internal Medicine 03/05/17 03/16/21 [facility], Pcp [address] [place] [address]3670 PCP - General Internal Medicine 03/17/21 05/04/21 Michelle Norris MD [address] [place] [address] 07784 PCP - General Internal Medicine 05/05/21 09/13/22 Rosetta Diamond MD [address] [place] [address] KARTIK CHNE [address] PCP - General Internal Medicine 09/14/22 documented as of this encounter
--- OUTSIDE RECORDS SUMMARY | 2025-06-15 15:47 | XMS_ITS | Encounter Summary ---
Author Organization [facility] Address [address] [place] [address] Care Team Providers Care Editor Trade Journal Name Role Phone Nikki Alcantar MD Primary Care Provider [phone] Michelle Norris MD Primary Care Provider Unavail [facility] Primary Care Provider [facility] Michelle Norris MD Primary Care Provider Unavail [facility] Rosetta Diamond MD Primary Care Provider + Encounter Details Date Type Department Care Team Description 03/07/2012 Hospital Medical Records [address] [place] [address] Marlen Grande Social History Tobacco Use Types [...] on filedocumented in this encounter Care Teams Editor Trade Journal Relationship Specialty Start Date End Date Nikki Alcantar MD [address] [place] [address] 12091 PCP - General 06/26/05 03/04/17 Michelle Norris MD [address] [place] [address] 13589 PCP - General Internal Medicine 03/05/17 03/16/21 [facility], Pcp [address] [place] [address] 47517 PCP - General Internal Medicine 03/17/21 05/04/21 Michelle Norris MD [address] [place] [address] 19836 PCP - General Internal Medicine 05/05/21 09/13/22 Rosetta Diamond MD [address] [place] [address]1020 PCP - General Internal Medicine 09/14/22 documented as of this encounter
--- OUTSIDE RECORDS SUMMARY | 2025-06-15 15:47 | XMS_ITS | Encounter Summary ---
Author Organization [facility] Address [address] [place] [address] Care Team Providers Care Self Sealing Fuel Tank Repairer Name Role Phone Nikki Alcantar MD Primary Care Provider [phone] Michelle Norris MD Primary Care Provider Unavail [facility] Primary Care Provider [facility] Michelle Norris MD Primary Care Provider [facility]ail [facility] Rosetta Diamond MD Primary Care Provider + Encounter Details Date Type Department Care Team Description 09/27/2012 Strategy Analyst Report Medical Records [address] [place] [address] Julio Paredes MD Social History Tobacco Use [...] encounter Care Teams Self Sealing Fuel Tank Repairer Relationship Specialty Start Date End Date Nikki Alcantar MD [address] [place] [address] PCP - General 06/26/05 03/04/17 Michelle Norris MD [address] [place] [address] PCP - General Internal Medicine 03/05/17 03/16/21 Counts Include [facility], Pcp [address] [place] [address] PCP - General Internal Medicine 03/17/21 05/04/21 Michelle Norris MD [address] [place] [address] [place] [address] PCP - General Internal Medicine 05/05/21 09/13/22 Rosetta Diamond MD [address] [place], [place] [phone] PCP - General Internal Medicine 09/14/22 documented as of this encounter
--- OUTSIDE RECORDS SUMMARY | 2025-06-15 15:47 | XMS_ITS | Encounter Summary ---
Author Organization [facility] Address [address] [place] [address] Care Team Providers Care Mobile Therapist Name Role Phone Michelle Norris MD Primary Care Provider Unavail able [facility] Michelle Lagos MD Primary Care Provider Unavail able Rosetta Diamond MD Primary Care Provider + Reason for Visit * Reason Comments E-prescribe Rx Request Encounter Details Date Type Department Care Team Description 08/11/2018 Refill OBGYN - [place] [address] [place] [address] Chel Stapleton CNM [address] [place], [place] [phone] E-prescribe Rx Request Social History Tobacco Use [...] EDT WHEN WAS THE PATIENTS LAST ANNUAL ASTROCHEMIST EXAM? 07/19/17 Does patient have an upcoming [...] / Plan: [place] / Product Type: MEDICARE [id number] documented in this encounter Plan of Treatment Not on file documented as of this encounter Visit Diagnoses Diagnosis Encounter for initial prescription of contraceptive pills General counseling for prescription of oral contraceptives documented in this encounter Care Teams Mobile Therapist Relationship Specialty Start Date End Date Michelle Norris MD PCP - General Internal Medicine 03/05/17 03/16/21 [facility] PCP - General Internal Medicine 03/17/21 05/04/21 Michelle Norris MD PCP - General Internal Medicine 05/05/21 09/13/22 Rosetta Diamond MD [address] [place] [address] PCP - General Internal Medicine 09/14/22 documented as of this encounter
--- OUTSIDE RECORDS SUMMARY | 2025-06-15 15:47 | XMS_ITS | Encounter Summary ---
Author Organization [facility] Address [address] [place] [address] Care Team Providers Care Business Banking Officer Name Role Phone Michelle Norris MD Primary Care Provider [facility]ail [facility], Pcp Primary Care Provider [facility] Michelle Lagos MD Primary Care Provider Unavail able Rosetta Diamond MD Primary Care Provider + Reason for Visit * Reason Onset Date Comments Faxed Order 08/22/2020 Encounter Details Date Type Department Care Team Description 08/22/2020 Telephone Adult [address] [address] Michelle Norris MD Faxed Order Social History [...] TO BE SIGN AND FAX BACK TO [phone]. documented in this encounter Plan of Treatment Not on file documented as of this encounter Visit Diagnoses Not on filedocumented in this encounter Care Teams Business Banking Officer Relationship Specialty Start Date End Date Michelle Norirs MD PCP - General Internal Medicine 03/05/17 03/16/21 [facility], Pcp PCP - General Internal Medicine 03/17/21 05/04/21 Michelle Norris MD PCP - General Internal Medicine 05/05/21 09/13/22 Rosetta Diamond MD [address] [place] [address] PCP - General Internal Medicine 09/14/22 documented as of this encounter
--- OUTSIDE RECORDS SUMMARY | 2025-06-15 15:47 | XMS_ITS | Clinical Summary ---
Author Organization [facility] Address [address] [address] Phone Care Team Providers Care Tube Lancer Name Role Phone Maribel Marquez NP Primary Care Provider + Allergies Active Allergy Reactions Criticality Noted Date Comments Azithromycin 05/18/2023 Codeine 04/21/2009 Unknown reaction [place] Other (See Comments) 02/27/2013 pt reports 01/17/13 [...] EST) SODIUM 140 136 - 145 mmol/L [facility] POTASSIUM 3.7 3.4 - 5.1 mmol/L [facility] CHLORIDE 102 98 - 107 mmol/L [facility] CO2 23 22 - 31 mmol/L [facility] BUN 12 6 - 23 mg/dL [facility] CREATININE 0.63 0.50 - 1.20 mg/dL [facility] GLUCOSE 160(H) 70 - 100 mg/dL [facility] CALCIUM 9.2 8.8 - 10.7 mg/dL [facility] EGFR 111 >59 mL/min/1.7 3m2 [facility] Comment:Estimated glomerular filtration rate calculated using the CKD-EPI refit equation. ANION GAP 15 7 - 17 mmol/L [facility] Blood 08/24/2024 3:05 AM EST 08/24/2024 3:15 AM EST Parvez Duenas MD, MPH LAB BLOOD ORDERABLES F inal Result Performing Organization Address City/State/[facility] de Phone Number [facility] [address] [place] [phone] from Last 3 Months or Most Recently [place] [id number] [facility] [place] [facility] PART A & [place] [id number] [place] [address] [place] MEDICARE PART A & B [facility] MEDICARE PART A & B Care Teams Tube Lancer Relationship Specialty Start Date End Date Maribel Marquez NP [address] [place] [address] PCP - General Nurse Practitioner 04/02/24 Additional Source Comments The information contained in this document represents components of the legal health record. It is not the complete legal health record.[facility]
--- OUTSIDE RECORDS SUMMARY | 2025-06-15 15:47 | XMS_ITS | Encounter Summary ---
Author Organization [facility] Address [address] [place] [address] Care Team Providers Care Fighting Vehicle Systems Maintainer Name Role Phone Nikki Alcantar MD Primary Care Provider [phone] Michelle Norris MD Primary Care Provider Unavail [facility] Primary Care Provider [facility] Michelle Norris MD Primary Care Provider Unavail [facility] Rosetta Diamond MD Primary Care Provider + Encounter Details Date Type Department Care Team Description 01/05/2016 Transfer Records Medical Records [address] [place] [address] Social History Tobacco Use Types Packs/Day Years [...] on filedocumented in this encounter Care Teams Fighting Vehicle Systems Maintainer Relationship Specialty Start Date End Date Nikki Alcantar MD [address] [place] [address] PCP - General 06/26/05 03/04/17 Michelle Norris MD [address] [place] [address] PCP - General Internal Medicine 03/05/17 03/16/21 [facility], Pcp [address] [place], [place] [phone] PCP - General Internal Medicine 03/17/21 05/04/21 Michelle Norris MD [address] [place] [address] PCP - General Internal Medicine 05/05/21 09/13/22 Rosetta Diamond MD [address] [place] [address] PCP - General Internal Medicine 09/14/22 documented as of this encounter
--- OUTSIDE RECORDS SUMMARY | 2025-06-15 15:47 | XMS_ITS | Encounter Summary ---
Author Organization [facility] Address [address] [place] [address] Care Team Providers Care Bilingual Instructor Name Role Phone Nikki Alcantar MD Primary Care Provider [phone] Michelle Norris MD Primary Care Provider Unavail [facility] Primary Care Provider [facility] Michelle Norris MD Primary Care Provider Unavail [facility] Rosetta Diamond MD Primary Care Provider + Encounter Details Date Type Department Care Team Description 12/22/2015 Hospital Medical Records [address] [place] [address] Marlen Grande Social History Tobacco Use Types [...] on filedocumented in this encounter Care Teams Bilingual Instructor Relationship Specialty Start Date End Date Nikki Alcantar MD [address] [place] [address] PCP - General 06/26/05 03/04/17 Michelle Norris MD [address] [place] [address] 487[address] PCP - General Internal Medicine 03/05/17 03/16/21 [facility], Pcp [address] [place] [address] 11406 PCP - General Internal Medicine 03/17/21 05/04/21 Michelle Norris MD [address] [place] [address] 22497 PCP - General Internal Medicine 05/05/21 09/13/22 Rosetat Diamond MD [address] [place] [address] PCP - General Internal Medicine 09/14/22 documented as of this encounter
--- OUTSIDE RECORDS SUMMARY | 2025-06-15 15:47 | XMS_ITS | Encounter Summary ---
Author Organization [facility] Address [address] [place] [address] Care Team Providers Care Tree Worker Name Role Phone Michelle Norris MD Primary Care Provider Unavail able [facility], Pcp [facility] Michelle Lagos MD Primary Care Provider Unavail able Rosetta Diamond MD Primary Care Provider + Reason for Visit * Reason Onset Date Comments Faxed Order 01/25/2018 Encounter Details Date Type Department Care Team Description 01/25/2018 Telephone Adult [address] [address] Michelle Norris MD Faxed Order Social History [...] 01/25/2018 11:18 AM EDT Faxed orders from ([facility] documented in this encounter Plan of Treatment Not on file documented as of this encounter Visit Diagnoses Not on filedocumented in this encounter Care Teams Tree Worker Relationship Specialty Start Date End Date Michelle Norris MD PCP - General Internal Medicine 03/05/17 03/16/21 [facility]cp PCP - General Internal Medicine 03/17/21 05/04/21 Michelle Norris MD PCP - General Internal Medicine 05/05/21 09/13/22 Rosetta Diamond MD [address] [place] [address] PCP - General Internal Medicine 09/14/22 documented as of this encounter
--- OUTSIDE RECORDS SUMMARY | 2025-06-15 15:47 | XMS_ITS | Encounter Summary ---
Author Organization [facility] Address [address] [place] [address] Care Team Providers Care Painting Worker Name Role Phone Nikki Alcantar MD Primary Care Provider [phone] Michelle Norris MD Primary Care Provider Unavail [facility] Primary Care Provider [facility] Michelle Norris MD Primary Care Provider Unavail [facility] Rosetta Diamond MD Primary Care Provider + Encounter Details Date Type Department Care Team Description 11/26/2007 Hospital Medical Records [address] [place] [address] Saúl Francisco Social History Tobacco Use Types [...] on filedocumented in this encounter Care Teams Painting Worker Relationship Specialty Start Date End Date Nikki Alcantar MD [address] [place] [address] PCP - General 06/26/05 03/04/17 Michelle Norris MD [address] [place] [address] PCP - General Internal Medicine 03/05/17 03/16/21 [facility], Pcp [address] [place] [address] PCP - General Internal Medicine 03/17/21 05/04/21 Michelle Norris MD [address] [place] [address] PCP - General Internal Medicine 05/05/21 09/13/22 Rosetta Diamnod MD [address] [place], [place] [phone] PCP - General Internal Medicine 09/14/22 documented as of this encounter
--- OUTSIDE RECORDS SUMMARY | 2025-06-15 15:47 | XMS_ITS | Encounter Summary ---
Author Organization [facility] Address [address] [place] [address] Care Team Providers Care Beauty Counselor Name Role Phone Nikki Alcantar MD Primary Care Provider Michelle Norris MD Primary Care Provider Unavail [facility] Primary Care Provider [facility] Michelle Norris MD Primary Care Provider Unavail [facility] Rosetta Diamond MD Primary Care Provider + Encounter Details Date Type Department Care Team Description 03/12/2015 Hospital Medical Records [address] [place] [address] Social History Tobacco Use Types Packs/Day Years [...] on filedocumented in this encounter Care Teams Beauty Counselor Relationship Specialty Start Date End Date Nikki Alcantar MD [address] [place] [address] PCP - General 06/26/05 03/04/17 Michelle Norris MD [address] [place] [address] PCP - General Internal Medicine 03/05/17 03/16/21 [facility], Pcp [address] [place] [address] PCP - General Internal Medicine 03/17/21 05/04/21 Michelle Norris MD [address] [place] [address] 08683 PCP - General Internal Medicine 05/05/21 09/13/22 Rosetta Diamond MD [address] [place] [address] KARTIK CHEN [address] PCP - General Internal Medicine 09/14/22 documented as of this encounter
--- OUTSIDE RECORDS SUMMARY | 2025-06-15 15:47 | XMS_ITS | Encounter Summary ---
Author Organization [facility] Address [address] [place] [address] Care Team Providers Care Commercial Credit Portfolio Manager Name Role Phone Nikki Alcantar MD Primary Care Provider [phone] Michelle Norris MD Primary Care Provider Unavail [facility] Primary Care Provider [facility] Michelle Norris MD Primary Care Provider Unavail [facility] Rosetta Diamond MD Primary Care Provider + Encounter Details Date Type Department Care Team Description 11/23/2011 Hospital Medical Records [address] [place] [address] Jose Echols MD Social History Tobacco Use [...] filedocumented in this encounter Care Teams Commercial Credit Portfolio Manager Relationship Specialty Start Date End Date Nikki Alcantar MD [address] [place] [address] PCP - General 06/26/05 03/04/17 Michelle Norris MD [address] [place] [address]278 PCP - General Internal Medicine 03/05/17 03/16/21 [facility], Pcp [address] [place] [address] PCP - General Internal Medicine 03/17/21 05/04/21 Michelle Norris MD [address] [place] [address] PCP - General Internal Medicine 05/05/21 09/13/22 Rosetta Diamond MD [address] [place] [address] PCP - General Internal Medicine 09/14/22 documented as of this encounter
--- OUTSIDE RECORDS SUMMARY | 2025-06-15 15:47 | XMS_ITS | Encounter Summary ---
Author Organization [facility] Address [address] [place] [address] Care Team Providers Care Oncology Navigator Name Role Phone Michelle Norris MD Primary Care Provider [facility]ail [facility]cp [facility] Michelle Norris MD Primary Care Provider Unavail able Rosetta Diamond MD Primary Care Provider + Encounter Details Date Type Department Care Team Description 04/12/2018 Gate Clerk Report Medical Records [address] [place] [address] Abstract, Provider Social History Tobacco Use Types [...] on filedocumented in this encounter Care Teams Oncology Navigator Relationship Specialty Start Date End Date Michelle Norris MD PCP - General Internal Medicine 03/05/17 03/16/21 [facility], Pcp PCP - General Internal Medicine 03/17/21 05/04/21 Michelle Norris MD PCP - General Internal Medicine 05/05/21 09/13/22 Rosteta Diamond MD [address] [place] [address] PCP - General Internal Medicine 09/14/22 documented as of this encounter
--- OUTSIDE RECORDS SUMMARY | 2025-06-15 15:47 | XMS_ITS | Encounter Summary ---
Author Organization [facility] Address [address] [place] [address] Care Team Providers Care Computer Artist Name Role Phone Nikki Alcantar MD Primary Care Provider [phone] Michelle Norris MD Primary Care Provider Unavail able [facility] Primary Care Provider [facility] Michelle Norris MD Primary Care Provider Unavail able Rosetta Diamond MD Primary Care Provider + Reason for Visit * Reason Onset Date Comments other 03/22/2015 Encounter Details Date Type Department Care Team Description 03/22/2015 Telephone Adult Medicine [address] [phone] Nikki Alcantar MD [address] [place] [address] [phone] other Social History Tobacco Use Types Packs/Day [...] Hopper by Dr Shah, call Val at [phone] with any questions, thank you! documented in this encounter Plan of Treatment Not on file documented as of this encounter Visit Diagnoses Not on filedocumented in this encounter Care Teams Computer Artist Relationship Specialty Start Date End Date Nikki Alcantar MD [address] [place] [address] PCP - General 06/26/05 03/04/17 Michelle Norris MD [address] [place], [place] [phone] PCP - General Internal Medicine 03/05/17 03/16/21 [place] [phone] PCP - General Internal Medicine 03/17/21 05/04/21 Michelle Norris MD [address] [place] [address] PCP - General Internal Medicine 05/05/21 09/13/22 Rosetta Diamond MD [address] [place] [address] PCP - General Internal Medicine 09/14/22 documented as of this encounter
--- OUTSIDE RECORDS SUMMARY | 2025-06-15 15:47 | XMS_ITS | Encounter Summary ---
Author Organization [facility] Address [address] [place] [address] Care Team Providers Care Hot Box Operator Name Role Phone Michelle Norris MD Primary Care Provider [facility]ail [facility]cp [facility] Michelle Norris MD Primary Care Provider Unavail able Rosetta Diamond MD Primary Care Provider + Encounter Details Date Type Department Care Team Description 05/08/2018 Hospital Medical Records [address] [place] [address] Abstract, Provider Social History Tobacco Use Types [...] filedocumented in this encounter Care Teams Hot Box Operator Relationship Specialty Start Date End Date Michelle Norris MD PCP - General Internal Medicine 03/05/17 03/16/21 [facility], Pcp PCP - General Internal Medicine 03/17/21 05/04/21 Michelle Norris MD PCP - General Internal Medicine 05/05/21 09/13/22 Rosetta Diamond MD [address] [place] [address] PCP - General Internal Medicine 09/14/22 documented as of this encounter
--- OUTSIDE RECORDS SUMMARY | 2025-06-15 15:47 | XMS_ITS | Encounter Summary ---
Author Organization [facility] Address [address] [place] [address] Care Team Providers Care Dough Scaler And Mixer Name Role Phone Nikki Alcantar MD Primary Care Provider [phone] Michelle Norris MD Primary Care Provider Unavail [facility] Primary Care Provider [facility] Michelle Norris MD Primary Care Provider Unavail [facility] Rosetta Diamond MD Primary Care Provider + Encounter Details Date Type Department Care Team Description 07/15/2014 Hospital Medical Records [address] [place] [phone] [facility] Social History Tobacco Use Types [...] on filedocumented in this encounter Care Teams Dough Scaler And Mixer Relationship Specialty Start Date End Date Nikki Alcantar MD [address] [place] [address] PCP - General 06/26/05 03/04/17 Michelle Norris MD [address] [place] [address] 39957 PCP - General Internal Medicine 03/05/17 03/16/21 [facility], Pcp [address] [place] [address]63 PCP - General Internal Medicine 03/17/21 05/04/21 Michelle Norris MD [address] [place] [address]89 PCP - General Internal Medicine 05/05/21 09/13/22 Rosetta Diamond MD [address] [place] [address] PCP - General Internal Medicine 09/14/22 documented as of this encounter
--- OUTSIDE RECORDS SUMMARY | 2025-06-15 15:47 | XMS_ITS | Encounter Summary ---
Author Organization [facility] Address [address] [place] [address] Care Team Providers Care Machine Rope Maker Name Role Phone Katherine Norris MD Primary Care Provider Unavail able Raf[facility], Pcp Primary Care Provider Katherine Abdi MD Primary Care Provider Unavail able Rosetta Diamond MD Primary Care Provider + Reason for Visit * Reason Onset Date Comments Information Needed 03/16/2020 Encounter Details Date Type Department Care Team Description 03/16/2020 Telephone Adult [address] [address] Katherine Norris MD Information Needed Social History [...] 10:37 AM EDT Patient is admitted [facility] just a FYI to KATHERINE NORRIS documented in this encounter Plan of Treatment Not on file documented as of this encounter Visit Diagnoses Not on filedocumented in this encounter Care Teams Machine Rope Maker Relationship Specialty Start Date End Date Katherine Norris MD PCP - General Internal Medicine 03/05/17 03/16/21 [facility], Pcp PCP - General Internal Medicine 03/17/21 05/04/21 Katherine Norris MD PCP - General Internal Medicine 05/05/21 09/13/22 Rosetta Diamond MD [address] [place] [address] PCP - General Internal Medicine 09/14/22 documented as of this encounter
--- OUTSIDE RECORDS SUMMARY | 2025-06-15 15:47 | XMS_ITS | Encounter Summary ---
Author Organization [facility] Address [address] [place] [address] Care Team Providers Care Bill Poster Installer Name Role Phone Nikki Alcantar MD Primary Care Provider [phone] Michelle Norris MD Primary Care Provider Unavail [facility] Primary Care Provider [facility] Michelle Norris MD Primary Care Provider Unavail [facility] Rosetta Diamond MD Primary Care Provider + Encounter Details Date Type Department Care Team Description 03/16/2015 Hospital Medical Records [address] [place] [address] Social History Tobacco Use Types Packs/Day Years [...] on filedocumented in this encounter Care Teams Bill Poster Installer Relationship Specialty Start Date End Date Nikki Alcantar MD [address] [place] [address] PCP - General 06/26/05 03/04/17 Michelle Norris MD [address] [place] [address] PCP - General Internal Medicine 03/05/17 03/16/21 [facility], Pcp [address] [place] [address] PCP - General Internal Medicine 03/17/21 05/04/21 Michelle Norris MD [address] [place] [address] PCP - General Internal Medicine 05/05/21 09/13/22 Rosetta Diamond MD [address] [place] [address] KARTIK CHEN [address] PCP - General Internal Medicine 09/14/22 documented as of this encounter
--- OUTSIDE RECORDS SUMMARY | 2025-06-15 15:47 | XMS_ITS | Encounter Summary ---
Author Organization [facility] Address [address] [place] [address] Care Team Providers Care Global Project Manager Name Role Phone Nikki Alcantar MD Primary Care Provider [phone] Michelle Norris MD Primary Care Provider Unavail [facility] Primary Care Provider [facility] Michelle Norris MD Primary Care Provider Unavail [facility] Rosetta Diamond MD Primary Care Provider + Encounter Details Date Type Department Care Team Description 10/15/2012 Night Triage Doc Medical Records [address] [place] [address] Abstract, Provider Social History Tobacco Use Types [...] on filedocumented in this encounter Care Teams Global Project Manager Relationship Specialty Start Date End Date Nikki Alcantar MD [address] [place] [address] PCP - General 06/26/05 03/04/17 Michelle Norris MD [address] [place] [address] PCP - General Internal Medicine 03/05/17 03/16/21 [facility], Pcp [address] [place] [address] PCP - General Internal Medicine 03/17/21 05/04/21 Michelle Norris MD [address] [place], [place] [phone] PCP - General Internal Medicine 05/05/21 09/13/22 Rosetta Diamond MD [address] [place] [address] PCP - General Internal Medicine 09/14/22 documented as of this encounter
--- OUTSIDE RECORDS SUMMARY | 2025-06-15 15:47 | XMS_ITS | Encounter Summary ---
Author Organization [facility] Address [address] [place] [address] Care Team Providers Care Cdl Instructor Name Role Phone Nikki Alcantar MD Primary Care Provider [phone] Michelle Norris MD Primary Care Provider Unavail [facility] Primary Care Provider [facility] Michelle Norris MD Primary Care Provider Unavail [facility] Rosetta Diamond MD Primary Care Provider + Encounter Details Date Type Department Care Team Description 07/05/2012 Hospital Medical Records [address] [place] [phone] Rod Mccoy MD Social History Tobacco Use [...] on filedocumented in this encounter Care Teams Cdl Instructor Relationship Specialty Start Date End Date Nikki Alcantar MD [address] [place] [address] PCP - General 06/26/05 03/04/17 Michelle Norris MD [address] [place] [address] PCP - General Internal Medicine 03/05/17 03/16/21 [facility], Pcp [address] [place] [address] PCP - General Internal Medicine 03/17/21 05/04/21 Michelle Norris MD [address] [place] [address] PCP - General Internal Medicine 05/05/21 09/13/22 Rosetta Diamond MD [address] [place] [address] PCP - General Internal Medicine 09/14/22 documented as of this encounter
--- OUTSIDE RECORDS SUMMARY | 2025-06-15 15:47 | XMS_ITS | Encounter Summary ---
Author Organization [facility] Address [address] [place] [address] Care Team Providers Care Marble Setter Name Role Phone Michelle Norris MD Primary Care Provider Unavail [facility], Pcp [facility] Michelle Norris MD Primary Care Provider Unavail able Rosetta Diamond MD Primary Care Provider + Encounter Details Date Type Department Care Team Description 01/29/2018 Release of Information Medical Records [address] [place] [address] Abstract, Provider Social History Tobacco Use Types [...] on filedocumented in this encounter Care Teams Marble Setter Relationship Specialty Start Date End Date Michelle Norris MD PCP - General Internal Medicine 03/05/17 03/16/21 [facility], Pcp PCP - General Internal Medicine 03/17/21 05/04/21 Michelle Norris MD PCP - General Internal Medicine 05/05/21 09/13/22 Rosetta Diamond MD [address] [place] [address] PCP - General Internal Medicine 09/14/22 documented as of this encounter
--- OUTSIDE RECORDS SUMMARY | 2025-06-15 15:47 | XMS_ITS | Encounter Summary ---
Author Organization [facility] Address [address] [place] [address] Care Team Providers Care Flight Attendant Name Role Phone Nikki Alcantar MD Primary Care Provider [phone] Michelle Norris MD Primary Care Provider Unavail able [facility] Primary Care Provider [facility] Michelle Norris MD Primary Care Provider Unavail [facility] Rosetta Diamond MD Primary Care Provider + Encounter Details Date Type Department Care Team Description 09/12/2011 Hospital Medical Records [address] [place] [address] Bandar Ryan [address] [facility] [address] [place] [address] Social History Tobacco Use Types Packs/Day Years [...] on filedocumented in this encounter Care Teams Flight Attendant Relationship Specialty Start Date End Date Nikki Alcantar MD [address] [place] [address] PCP - General 06/26/05 03/04/17 Michelle Norris MD [address] [place] [address] PCP - General Internal Medicine 03/05/17 03/16/21 [facility], Pcp [address] [place] [address] PCP - General Internal Medicine 03/17/21 05/04/21 Michelle Norris MD [address] [place] [address] PCP - General Internal Medicine 05/05/21 09/13/22 Rosetta Diamond MD [address] [place] [address] PCP - General Internal Medicine 09/14/22 documented as of this encounter
--- OUTSIDE RECORDS SUMMARY | 2025-06-15 15:47 | XMS_ITS | Encounter Summary ---
Author Organization [facility] Address [address] [place] [address] Care Team Providers Care Camp Tender Name Role Phone Micehlle Norris MD Primary Care Provider Unavail able [facility], Pcp Primary Care Provider Unavailabl e Michelle Norris MD Primary Care Provider Unavail able Rosetta Diamond MD Primary Care Provider + Encounter Details Date Type Department Care Team Description 09/21/2020 Hospital Medical Records [address] [place] [address] Ibrahima Ron Social History Tobacco Use Types [...] filedocumented in this encounter Care Teams Camp Tender Relationship Specialty Start Date End Date Michelle Norris MD PCP - General Internal Medicine 03/05/17 03/16/21 [facility], Pcp PCP - General Internal Medicine 03/17/21 05/04/21 Michelle Norris MD PCP - General Internal Medicine 05/05/21 09/13/22 Rosetta Diamond MD [address] [place] [address] PCP - General Internal Medicine 09/14/22 documented as of this encounter
--- OUTSIDE RECORDS SUMMARY | 2025-06-15 15:47 | XMS_ITS | Encounter Summary ---
Author Organization [facility] Address [address] [place] [address] Care Team Providers Care Software Quality Assurance Specialist Name Role Phone Michelle Norris MD Primary Care Provider Unavail able [facility], Pcp Primary Care [facility] Michelle Lagos MD Primary Care Provider Unavail able Rosetta Diamond MD Primary Care Provider + Reason for Visit * Reason Onset Date Comments other 05/02/2018 hospital admissi on [facility] Care Encounter Details Date Type Department Care Team Description 05/02/2018 Telephone Adult Medicine [address] [address] Michelle Norris MD other (hospital admission - [facility]) Social History Tobacco Use Types Packs/Day [...] - 05/16/2018 1:49 PM EDT [facility] called to confirm Hosp f/u appt on 05/22 at 1:30. She will fax hospital notes to [phone] * Telephone Encounter - Sridevi Raymundo R.N. - 05/16/2018 12:17 PM EDT I left a message for Paradise from [facility] at [phone] to return my call. Pt has hosp f/u appt 05/22 at 1:30 with pcp. * Telephone Encounter - Sridevi Toscano - 05/16/2018 10:43 AM EDT paradise [facility] Returning call * Telephone Encounter - Sho Souza - 05/02/2018 4:56 PM EDT Patient was admitted on 05-01-18 to [facility] dx: suicidal ideation with aplan. documented in this encounter Plan of Treatment Not on file documented as of this encounter Visit Diagnoses Not on filedocumented in this encounter Care Teams Software Quality Assurance Specialist Relationship Specialty Start Date End Date Michelle Norris MD PCP - General Internal Medicine 03/05/17 03/16/21 [facility] PCP - General Internal Medicine 03/17/21 05/04/21 Michelle Norris MD PCP - General Internal Medicine 05/05/21 09/13/22 Rosetta Diamond MD [address] [place] [address] PCP - General Internal Medicine 09/14/22 documented as of this encounter
--- OUTSIDE RECORDS SUMMARY | 2025-06-15 15:47 | XMS_ITS | Encounter Summary ---
Author Organization [facility] Address [address] [place] [address] Care Team Providers Care Pig Breeder Name Role Phone Nikki Alcantar MD Primary Care Provider [phone] Michelle Norris MD Primary Care Provider Unavail able [facility] Michelle Norris MD Primary Care Provider Unavail able Rosetta Diamond MD Primary Care Provider + Encounter Details Date Type Department Care Team Description 09/29/2012 Telephone Adult Medicine [facility] [address] [place] [address] [phone] Nikki Alcantar MD [address] [place] [address] [phone] Social History Tobacco Use Types Packs/Day Years [...] on filedocumented in this encounter Care Teams Pig Breeder Relationship Specialty Start Date End Date Nikki Alcantar MD [address] [place] [address] PCP - General 06/26/05 03/04/17 Michelle Norris MD [address] [place], [place] [phone] PCP - General Internal Medicine 03/05/17 03/16/21 [place] [address] PCP - General Internal Medicine 03/17/21 05/04/21 Michelle Norris MD [address] [place] [address] PCP - General Internal Medicine 05/05/21 09/13/22 Rosetta Diamond MD [address] [place] [address] PCP - General Internal Medicine 09/14/22 documented as of this encounter
--- OUTSIDE RECORDS SUMMARY | 2025-06-15 15:47 | XMS_ITS | Encounter Summary ---
Author Organization [facility] Address [address] [place] [address] Care Team Providers Care Telephone Technician Name Role Phone Michelle Norris MD Primary Care Provider Unavail able [facility], Pcp [facility] Michelle Norris MD Primary Care Provider Unavail able Rosetta Diamond MD Primary Care Provider + Encounter Details Date Type Department Care Team Description 03/25/2018 Business Doc Medical Records [address] [place] [address] Abstract, Provider Social History Tobacco Use Types [...] on filedocumented in this encounter Care Teams Telephone Technician Relationship Specialty Start Date End Date Michelle Norris MD PCP - General Internal Medicine 03/05/17 03/16/21 [facility], Pcp PCP - General Internal Medicine 03/17/21 05/04/21 Michelle Norris MD PCP - General Internal Medicine 05/05/21 09/13/22 Rosetta Diamond MD [address] [place] [address] PCP - General Internal Medicine 09/14/22 documented as of this encounter
--- OUTSIDE RECORDS SUMMARY | 2025-06-15 15:47 | XMS_ITS | Encounter Summary ---
Author Organization [facility] Address [address] [place] [address] Care Team Providers Care Oven Worker Name Role Phone Nikki Alcantar MD Primary Care Provider [phone] Michelle Norris MD Primary Care Provider Unavail [facility] Primary Care Provider [facility] Michelle Norris MD Primary Care Provider Unavail [facility] Rosetta Diamond MD Primary Care Provider + Encounter Details Date Type Department Care Team Description 04/02/2014 Hospital Medical Records [address] [place] [address] [phone] Social History Tobacco Use Types Packs/Day Years [...] on filedocumented in this encounter Care Teams Oven Worker Relationship Specialty Start Date End Date Nikki Alcantar MD [address] [place] [address] PCP - General 06/26/05 03/04/17 Michelle Norris MD [address] [place] [address] PCP - General Internal Medicine 03/05/17 03/16/21 [facility], Pcp [address] [place] [address] PCP - General Internal Medicine 03/17/21 05/04/21 Michelle Norris MD [address] [place] [address] PCP - General Internal Medicine 05/05/21 09/13/22 Rosetta Diamond MD [address] [place] [address] PCP - General Internal Medicine 09/14/22 documented as of this encounter
--- OUTSIDE RECORDS SUMMARY | 2025-06-15 15:47 | XMS_ITS | Encounter Summary ---
Author Organization [facility] Address [address] [place] [address] Care Team Providers Care Electric Locomotive Crane Operator Name Role Phone Nikki Alcantar MD Primary Care Provider [phone] Michelle Norris MD Primary Care Provider Unavail able [facility] Michelle Norris MD Primary Care Provider Unavail able Rosetta Diamond MD Primary Care Provider + Reason for Visit * Reason Onset Date Comments Behavior 05/27/2015 Encounter Details Date Type Department Care Team Description 05/27/2015 Telephone Adult Medicine [address] [phone] Nikki Alcantar MD [address] [place] [address] [phone] Behavior Social History Tobacco Use Types Packs/Day [...] - 05/27/2015 1:09 PM EDT PAT FROM [facility] IS CALLING TO LET DR ALCANTAR KNOW THAT PATIENT HAS BEEN ADMITTED. documented in this encounter Plan of Treatment Not on file documented as of this encounter Visit Diagnoses Not on filedocumented in this encounter Care Teams Electric Locomotive Crane Operator Relationship Specialty Start Date End Date Nikki Alcantar MD [address] [place] [address] PCP - General 06/26/05 03/04/17 Michelle Norris MD [address] [place] [address] PCP - General Internal Medicine 03/05/17 03/16/21 [place] [address] PCP - General Internal Medicine 03/17/21 05/04/21 Michelle Norris MD [address] [place] [address] PCP - General Internal Medicine 05/05/21 09/13/22 Rosetta Diamond MD [address] [place], [place] [phone] PCP - General Internal Medicine 09/14/22 documented as of this encounter
--- OUTSIDE RECORDS SUMMARY | 2025-06-15 15:47 | XMS_ITS | Encounter Summary ---
Author Organization [facility] Address [address] [place] [address] Care Team Providers Care Crossword Puzzle Maker Name Role Phone Nikki Alcantar MD Primary Care Provider [phone] Michelle Norris MD Primary Care Provider Unavail able [facility] Primary Care Provider [facility] Michelle Norris MD Primary Care Provider Unavail able Rosetta Diamond MD Primary Care Provider + Reason for Visit * Reason Onset Date Comments Provider Call Back 11/26/2014 Encounter Details Date Type Department Care Team Description 11/26/2014 Telephone Adult Medicine [address] [phone] Nikki Alcantar MD [address] [place] [address] [phone] Provider Call Back Social History Tobacco Use [...] Patient Was treated [facility] behavioral [facility] Yesterday She is doing ok , no call backneeded documented in this encounter Plan of Treatment Not on file documented as of this encounter Visit Diagnoses Not on filedocumented in this encounter Care Teams Crossword Puzzle Maker Relationship Specialty Start Date End Date Nikki Alcantar MD [address] [place] [address] PCP - General 06/26/05 03/04/17 Michelle Norris MD [address] [place] [address] PCP - General Internal Medicine 03/05/17 03/16/21 [place] [phone] PCP - General Internal Medicine 03/17/21 05/04/21 Michelle Norris MD [address] [place] [address] PCP - General Internal Medicine 05/05/21 09/13/22 Rosetta Diamond MD [address] [place], [place] [phone] PCP - General Internal Medicine 09/14/22 documented as of this encounter
--- OUTSIDE RECORDS SUMMARY | 2025-06-15 15:47 | XMS_ITS | Encounter Summary ---
Author Organization [facility] Address [address] [place] [address] Care Team Providers Care Manager Balance Name Role Phone Michelle Norris MD Primary Care Provider Unavail able [facility] Michelle Lagos MD Primary Care Provider Unavail able Rosetta Diamond MD Primary Care Provider + Reason for Visit * Reason Onset Date Comments Provider Call Back 10/12/2020 Encounter Details Date Type Department Care Team Description 10/12/2020 Telephone Adult Medicine [address] [address] Michelle Norris MD Provider Call Back Social [...] direct care staff returned call. Please call [phone] to speak with Milton if florencio can [...] this person: NO Reason for call back: intermediate aid calling would like to speak to [...] filedocumented in this encounter Care Teams Manager Balance Relationship Specialty Start Date End Date Michelle Norris MD PCP - General Internal Medicine 03/05/17 03/16/21 [facility], Pcp PCP - General Internal Medicine 03/17/21 05/04/21 Mihcelle Norris MD PCP - General Internal Medicine 05/05/21 09/13/22 Rosetta Diamond MD [address] [place] [address] PCP - General Internal Medicine 09/14/22 documented as of this encounter
--- OUTSIDE RECORDS SUMMARY | 2025-06-15 15:47 | XMS_ITS | Encounter Summary ---
Author Organization [facility] Address [address] [place] [address] Care Team Providers Care Escrow Agent Name Role Phone Nikki Alcantar MD Primary Care Provider [phone] Michelle Norris MD Primary Care Provider Unavail [facility] Primary Care Provider [facility] Michelle Norris MD Primary Care Provider Unavail [facility] Rosetta Diamond MD Primary Care Provider + Encounter Details Date Type Department Care Team Description 07/31/2012 Power Plant Installer Report Medical Records [address] [place] [address] Julio Paredes MD Social History Tobacco Use [...] filedocumented in this encounter Care Teams Escrow Agent Relationship Specialty Start Date End Date Nikki Alcantar MD [address] [place] [address] PCP - General 06/26/05 03/04/17 Michelle Norris MD [address] [place] [address] PCP - General Internal Medicine 03/05/17 03/16/21 [facility], Pcp [address] [place] [address] PCP - General Internal Medicine 03/17/21 05/04/21 Michelle Norris MD [address] [place] [address] [place] [address] PCP - General Internal Medicine 05/05/21 09/13/22 Rosetta Diamond MD [address] [place], [place] [phone] PCP - General Internal Medicine 09/14/22 documented as of this encounter
--- OUTSIDE RECORDS SUMMARY | 2025-06-15 15:47 | XMS_ITS | Encounter Summary ---
Author Organization [facility] Address [address] [place] [address] Care Team Providers Care Fountain Worker Name Role Phone Nikki Alcantar MD Primary Care Provider Michelle Norris MD Primary Care Provider Unavail [facility] Primary Care Provider [facility] Michelle Norris MD Primary Care Provider Unavail [facility] Rosetta Diamond MD Primary Care Provider + Encounter Details Date Type Department Care Team Description 05/17/2012 Hospital Medical Records [address] [place] [address] Miles Shah MD Social History Tobacco Use [...] on filedocumented in this encounter Care Teams Fountain Worker Relationship Specialty Start Date End Date Nikki Alcantar MD [address] [place] [address] PCP - General 06/26/05 03/04/17 Michelle Norris MD [address] [place] [address] PCP - General Internal Medicine 03/05/17 03/16/21 Replaced By [facility], Pcp [address] [place] [address] PCP - General Internal Medicine 03/17/21 05/04/21 Michelle Norris MD [address] [place] [address] 26771 PCP - General Internal Medicine 05/05/21 09/13/22 Rosetta Diamond MD [address] [place] [address] PCP - General Internal Medicine 09/14/22 documented as of this encounter
--- OUTSIDE RECORDS SUMMARY | 2025-06-15 15:47 | XMS_ITS | Encounter Summary ---
Author Organization [facility] Address [address] [place] [address] Care Team Providers Care Heater Planer Operator Name Role Phone Nikki Alcantar MD Primary Care Provider [phone] Michelle Norris MD Primary Care Provider Unavail [facility] Primary Care Provider [facility] Michelle Norris MD Primary Care Provider Unavail [facility] Rosetta Diamond MD Primary Care Provider + Encounter Details Date Type Department Care Team Description 01/01/2016 Hospital Medical Records [address] [place] [address] Social History Tobacco Use Types Packs/Day Years [...] filedocumented in this encounter Care Teams Heater Planer Operator Relationship Specialty Start Date End Date Nikki Alcantar MD [address] [place] [address] PCP - General 06/26/05 03/04/17 Michelle Norris MD [address] [place] [address] 22209 PCP - General Internal Medicine 03/05/17 03/16/21 [facility], Pcp [address] [place] [address] 99395 PCP - General Internal Medicine 03/17/21 05/04/21 Michelle Norris MD [address] [place] [address] 319[address] PCP - General Internal Medicine 05/05/21 09/13/22 Rosetta Diamond MD [address] [place] [address] PCP - General Internal Medicine 09/14/22 documented as of this encounter
--- OUTSIDE RECORDS SUMMARY | 2025-06-15 15:47 | XMS_ITS | Encounter Summary ---
Author Organization [facility] Address [address] [place] [address] Care Team Providers Care Barrel Painter Name Role Phone Nikki Alcantar MD Primary Care Provider [phone] Michelle Norris MD Primary Care Provider Unavail able [facility] MD Primary Care Provider Unavail able Rosetta Diamond MD Primary Care Provider + Reason for Visit * Reason Onset Date Comments Call From Hospital 08/26/2014 Encounter Details Date Type Department Care Team Description 08/26/2014 Telephone Adult Medicine [address] [phone] Nikki Alcantar MD [address] [place] [address] [phone] Call From Hospital Social History Tobacco Use [...] Rebecca Terry - 08/26/2014 3:30 PM EST [facility] has admitted patient. Any questions call tammy at [phone] documented in this encounter Plan of Treatment Not on file documented as of this encounter Visit Diagnoses Not on filedocumented in this encounter Care Teams Barrel Painter Relationship Specialty Start Date End Date Nikki Alcantar MD [address] [place] [address] PCP - General 06/26/05 03/04/17 Michelle Norris MD [address] [place] [address] PCP - General Internal Medicine 03/05/17 03/16/21 [place] [address] PCP - General Internal Medicine 03/17/21 05/04/21 Michelle Norris MD [address] [place] [address] PCP - General Internal Medicine 05/05/21 09/13/22 Rosetta Diamond MD [address] [place] [address] PCP - General Internal Medicine 09/14/22 documented as of this encounter
--- OUTSIDE RECORDS SUMMARY | 2025-06-15 15:47 | XMS_ITS | Encounter Summary ---
Author Organization [facility] Address [address] [place] [address] Care Team Providers Care Hand Tool Lapper Name Role Phone Nikki Alcatnar MD Primary Care Provider [phone] Michelle Norris MD Primary Care Provider Unavail [facility] Primary Care Provider [facility] Michelle Norris MD Primary Care Provider Unavail [facility] Rosetta Diamond MD Primary Care Provider + Encounter Details Date Type Department Care Team Description 11/25/2015 Hospital Medical Records [address] [place] [phone] Petey Kate Social History Tobacco Use Types [...] filedocumented in this encounter Care Teams Hand Tool Lapper Relationship Specialty Start Date End Date Nikki Alcantar MD [address] [place] [address] PCP - General 06/26/05 03/04/17 Michelle Norris MD [address] [place] [address] PCP - General Internal Medicine 03/05/17 03/16/21 [facility], Pcp [address] [place] [address] PCP - General Internal Medicine 03/17/21 05/04/21 Michelle Norris MD [address] [place] [address] [place] [address] PCP - General Internal Medicine 05/05/21 09/13/22 Rosetta Diamond MD [address] [place], [place] [phone] PCP - General Internal Medicine 09/14/22 documented as of this encounter
--- OUTSIDE RECORDS SUMMARY | 2025-06-15 15:47 | XMS_ITS | Encounter Summary ---
Author Organization [facility] Address [address] [place] [address] Care Team Providers Care Platen Press Feeder Name Role Phone Nikki Alcantar MD Primary Care Provider [phone] Michelle Norris MD Primary Care Provider Unavail able [facility] MD Primary Care Provider Unavail able Rosetta Diamond MD Primary Care Provider + Reason for Visit * Reason Onset Date Comments Call From Hospital 03/23/2015 Encounter Details Date Type Department Care Team Description 03/23/2015 Telephone Adult Medicine [address] [phone] Nikki Alcantar MD [address] [place] [address] [phone] Call From Hospital Social History Tobacco Use [...] EDT fyi to dr josé Porter from [facility] psych unit called to notify Dr Alcantar that patient was admitted on 03/21/15 documented in this encounter Plan of Treatment Not on file documented as of this encounter Visit Diagnoses Not on filedocumented in this encounter Care Teams Platen Press Feeder Relationship Specialty Start Date End Date Nikki Alcantar MD [address] [place] [address] PCP - General 06/26/05 03/04/17 Michelle Norris MD [address] [place], [place] [phone] PCP - General Internal Medicine 03/05/17 03/16/21 [place] [address] PCP - General Internal Medicine 03/17/21 05/04/21 Michelle Norris MD [address] [place] [address] PCP - General Internal Medicine 05/05/21 09/13/22 Rosetta Diamond MD [address] [place], [place] [phone] PCP - General Internal Medicine 09/14/22 documented as of this encounter
--- OUTSIDE RECORDS SUMMARY | 2025-06-15 15:47 | XMS_ITS | Encounter Summary ---
Author Organization [facility] Address [address] [place] [address] Care Team Providers Care Fabric Separator Operator Name Role Phone Nikki Alcantar MD Primary Care Provider [phone] Michelle Norris MD Primary Care Provider Unavail able [facility] Primary Care Provider [facility] Michelle Norris MD Primary Care Provider Unavail able Rosetta Diamond MD Primary Care Provider + Reason for Visit * Reason Onset Date Comments APPOINTMENT 10/26/2011 missed appointme nt w/Dr Alcantar Encounter Details Date Type Department Care Team Description 10/26/2011 Telephone Adult Medicine [address] [phone] Nikki Alcantar MD [address] [place] [address] [phone] APPOINTMENT (missed appointment w/Dr Alcantar) Social History [...] on filedocumented in this encounter Care Teams Fabric Separator Operator Relationship Specialty Start Date End Date Nikki Alcantar MD [address] [place] [address] PCP - General 06/26/05 03/04/17 Michelle Norris MD [address] [place] [address] PCP - General Internal Medicine 03/05/17 03/16/21 [place] [address] PCP - General Internal Medicine 03/17/21 05/04/21 Michelle Norris MD [address] [place] [address] PCP - General Internal Medicine 05/05/21 09/13/22 Rosetta Diamond MD [address] [place] [address] PCP - General Internal Medicine 09/14/22 documented as of this encounter
--- OUTSIDE RECORDS SUMMARY | 2025-06-15 15:47 | XMS_ITS | Encounter Summary ---
Author Organization [facility] Address [address] [place] [address] Care Team Providers Care Custom Protection Officer Name Role Phone Michelle Norris MD Primary Care Provider [facility]ail [facility] MD Primary Care Provider Unavail able Rosetta Diamond MD Primary Care Provider + Encounter Details Date Type Department Care Team Description 11/15/2018 Release of Information Medical Records [address] [place] [id number] Abstract, Provider Social History Tobacco Use Types [...] on filedocumented in this encounter Care Teams Custom Protection Officer Relationship Specialty Start Date End Date Michelle Norris MD PCP - General Internal Medicine 03/05/17 03/16/21 [facility], Pcp PCP - General Internal Medicine 03/17/21 05/04/21 Michelle Norris MD PCP - General Internal Medicine 05/05/21 09/13/22 Rosetta Dimaond MD [address] [place] [address] PCP - General Internal Medicine 09/14/22 documented as of this encounter
--- OUTSIDE RECORDS SUMMARY | 2025-06-15 15:47 | XMS_ITS | Encounter Summary ---
Author Organization [facility] Address [address] [place] [address] Care Team Providers Care Automatic Toe Laster Name Role Phone Nikki Alcantar MD Primary Care Provider [phone] Michelle Norris MD Primary Care Provider Unavail [facility] Primary Care Provider [facility] Michelle Norris MD Primary Care Provider Unavail [facility] Rosetta Diamond MD Primary Care Provider + Encounter Details Date Type Department Care Team Description 02/16/2012 Hospital Medical Records [address] [place] [phone] Subhash Mcdaniel Social History Tobacco Use Types [...] filedocumented in this encounter Care Teams Automatic Toe Laster Relationship Specialty Start Date End Date Nikki Alcantar MD [address] [place] [address] PCP - General 06/26/05 03/04/17 Michelle Norris MD [address] [place] [address] 125[address] PCP - General Internal Medicine 03/05/17 03/16/21 [facility], Pcp [address] [place] [address] PCP - General Internal Medicine 03/17/21 05/04/21 Michelle Norris MD [address] [place] [address] PCP - General Internal Medicine 05/05/21 09/13/22 Rosetta Diamond MD [address] [place] [address] PCP - General Internal Medicine 09/14/22 documented as of this encounter
--- OUTSIDE RECORDS SUMMARY | 2025-06-15 15:47 | XMS_ITS | Encounter Summary ---
Author Organization [facility] Address [address] [place] [address] Care Team Providers Care Manager Document Name Role Phone Nikki Alcantar MD Primary Care Provider [phone] Michelle Norris MD Primary Care Provider Unavail [facility] Primary Care Provider [facility] Michelle Norris MD Primary Care Provider Unavail [facility] Rosetta Diamond MD Primary Care Provider + Encounter Details Date Type Department Care Team Description 02/13/2016 Hospital Medical Records [address] [place] [phone] Jose Echols MD Social History Tobacco Use [...] filedocumented in this encounter Care Teams Manager Document Relationship Specialty Start Date End Date Nikki Alcantar MD [address] [place] [address] PCP - General 06/26/05 03/04/17 Michelle Norris MD [address] [place] [address] PCP - General Internal Medicine 03/05/17 03/16/21 [facility], Pcp [address] [place] [address] PCP - General Internal Medicine 03/17/21 05/04/21 Michelle Norris MD [address] [place] [address] PCP - General Internal Medicine 05/05/21 09/13/22 Rosetta Diamond MD [address] [place] [address] PCP - General Internal Medicine 09/14/22 documented as of this encounter
--- OUTSIDE RECORDS SUMMARY | 2025-06-15 15:48 | XMS_ITS | Encounter Summary ---
Author Organization [facility] Address [address] [place] [address] Care Team Providers Care Echocardiography Radiology Technologist Name Role Phone Nikki Alcantar MD Primary Care Provider [phone] Michelle Norris MD Primary Care Provider Unavail [facility] Primary Care Provider [facility] Michelle Norris MD Primary Care Provider Unavail [facility] Rosetta Diamond MD Primary Care Provider + Encounter Details Date Type Department Care Team Description 12/17/2013 Business Doc Medical Records [address] [place] [phone] Abstract, Provider Social History Tobacco Use Types [...] on filedocumented in this encounter Care Teams Echocardiography Radiology Technologist Relationship Specialty Start Date End Date Nikki Alcantar MD [address] [place] [address] PCP - General 06/26/05 03/04/17 Michelle Norris MD [address] [place] [address] PCP - General Internal Medicine 03/05/17 03/16/21 [facility], Pcp [address] [place] [address] PCP - General Internal Medicine 03/17/21 05/04/21 Michelle Norris MD [address] [place] [address] PCP - General Internal Medicine 05/05/21 09/13/22 Rosetta Diamond MD [address] [place], [place] [phone] PCP - General Internal Medicine 09/14/22 documented as of this encounter
--- OUTSIDE RECORDS SUMMARY | 2025-06-15 15:48 | XMS_ITS | Clinical Summary ---
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 CAPELLAN LAB BLOOD ORDERABLES Fin al Result Performing Organization Address [facility]/ZIP Co de Phone Number [facility] [address] [place] [address], [place] [phone] * (ABNORMAL) Comprehensive metabolic panel (06/03/2025 2:49 AM EDT) Only the most recent of4 resultswithin the time period is included. Pathologist [facility] Sodium 136 133 - 145 mmol/L LAB CHEMISTRY METHOD 06/03/2025 3:56 AM [facility] Potassium 3.4(L) 3.5 - 5.5 mmol/L LAB CHEMISTRY METHOD 06/03/2025 3:56 AM EDT [facility] Chloride 102 96 - 110 mmol/L LAB CHEMISTRY METHOD 06/03/2025 3:56 AM EDT [facility] CO2 26 21 - 32 mmol/L LAB CHEMISTRY METHOD 06/03/2025 3:56 AM EDT [facility] Anion Gap 8 3 - 11 LAB CHEMISTRY METHOD 06/03/2025 3:56 AM EDT [facility] Glucose 246(H) 70 - 100 mg/dL LAB CHEMISTRY METHOD 06/03/2025 3:56 AM [facility] BUN 18 5 - 25 mg/dL LAB CHEMISTRY METHOD 06/03/2025 3:56 AM [facility] Creatinine 0.79 0.50 - 1.10 mg/dL LAB CHEMISTRY METHOD 06/03/2025 3:56 AM [facility] eGFR 93 >=60 mL/min/1. 73m2 LAB CHEMISTRY METHOD 06/03/2025 3:56 AM [facility] Comment:Calculation based on the Chronic Kidney Disease Epidemiology Collaboration (CKD-EPI) equation refit without adjustment for race. BUN/Creatinine Ratio 22.8 LAB CHEMISTRY METHOD 06/03/2025 3:56 AM [facility] Calcium 9.2 8.5 - 10.5 mg/dL LAB CHEMISTRY METHOD 06/03/2025 3:56 AM [facility] AST (SGOT) 16 10 - 42 unit/L LAB CHEMISTRY METHOD 06/03/2025 3:56 AM [facility] ALT (SGPT) 28 10 - 60 unit/L LAB CHEMISTRY METHOD 06/03/2025 3:56 AM [facility] Alkaline Phosphatase 219(H) 42 - 121 unit/L LAB CHEMISTRY METHOD 06/03/2025 3:56 AM [facility] Total Protein 6.7 6.0 - 8.0 g/dL LAB CHEMISTRY METHOD 06/03/2025 3:56 AM [facility] Albumin 3.8 3.2 - 5.0 g/dL LAB CHEMISTRY METHOD 06/03/2025 3:56 AM [facility] Total Bilirubin 0.2 0.0 - 1.4 mg/dL LAB CHEMISTRY METHOD 06/03/2025 3:56 AM [facility] Blood Venous blood specimen / Unknown Venipuncture / Unknown 06/03/2025 2:49 AM EDT 06/03/2025 3:05 AM EDT Cara CAPELLAN LAB BLOOD ORDERABLES Fin al Result Performing Organization Address [facility]/ZIP Co de Phone Number [facility] [address] [place] [address], [place] [phone] * , Urine (05/18/2025 7:00 PM EDT) Pathologist [facility] Preg Test, Ur Negative Negative 05/18/2025 7:43 PM EDT [facility] Urine Urine specimen obtained by clean catch procedure / Unknown Non-blood Collection / Unknown 05/18/2025 7:00 PM EDT 05/18/2025 7:13 PM EDT [facility] URINE ORDERABLES Final Re sult Performing Organization Address [facility]/ZIP Co de Phone Number [facility] [address] [place] [address], [place] [phone] * hCG, serum, qualitative (05/18/2025 7:00 PM EDT) [facility] hCG Qual Negative Negative 05/18/2025 8:31 PM EDT [facility] Blood Venous blood specimen / Unknown Venipuncture / Unknown 05/18/2025 7:00 PM EDT 05/18/2025 7:14 PM EDT [facility] BLOOD ORDERABLES Final Re sult Performing Organization Address City/[facility]/ZIP Co de Phone Number [facility] [address] [place] [address], [place] [phone] * ECG-Annotated (05/04/2025) Only the most recent of2 resultswithin the time period is included. us Provider Onbase MD ECG ORDERABLES Final Result * Electrocardiogram, 12 lead (05/02/2025 10:33 PM EDT) Only the most recent of2 resultswithin the time period is included. Ventricular Rate ECG 90 BPM GEMUSE Atrial Rate 90 BPM GEMUSE P-R Interval 188 ms GEMUSE QRS Duration 86 ms GEMUSE Q-T Interval 372 ms GEMUSE QTc 455 ms GEMUSE P Wave [place] 58 degrees GEMUSE R [place] 45 degrees GEMUSE T [place] 62 degrees GEMUSE ECG Interpretation Normal sinus rhythm Possible Left atrial enlargement Borderline ECG When compared with ECG of 11-APR-2025 23:49, No significant change was found Confirmed by Jaiden OROZCO JAMES ([id number]) on 05/04/2025 2:23:07 PM GEMUSE 05/02/2025 10:3 3 PM EDT 05/04/2025 2:23 PM EDT Karolina Gracia MD ECG ORDERABLES Final Result GEMUSE * POC , urine manually resulted (05/02/2025 9:43 PM EDT) Only the most recent of3 resultswithin the time period is included. HCG, Ur POC Negative Negative POC hCG Int QC Pass? Yes Yes EXPIRATION DATE POC 11/12/17 LOT NUMBER POC [id number] Urine Urine specimen obtained by clean catch procedure / Unknown 05/02/2025 9:43 PM EDT Karolina Gracia MD POINT OF CARE TEST ENTER/EDIT ORDERABLES Final Result * Pap smear (04/22/2024) 04/22/2024 Narrative HISTORICAL TESTING LAB RESULTING AGENCY - 04/28/2024 11:46 AM EDT [id number] THINPREP PAP, IMAGED: NEGATIVE FOR SQUAMOUS INTRAEPITHELIAL [...] Documents on File Type Date Recorded Patient Picture Booker Expl anation Health Care Decision (hx) 07/03/2023 [...] (hx) 07/03/2023 AD MARTINEZ DIRECTIVE Care Teams Search Developer Relationship Specialty Start Date End Date Maribel Marquez [address] [place] [id number] PCP - General 09/08/24
--- OUTSIDE RECORDS SUMMARY | 2025-06-15 15:48 | XMS_ITS | Encounter Summary ---
Author Organization [facility] Address [address] [place] [address] Care Team Providers Care Forward Air Controller/Air Officer Name Role Phone Nikki Alcantar MD Primary Care Provider [phone] Michelle Norris MD Primary Care Provider Unavail [facility] Primary Care Provider [facility] Michelle Norris MD Primary Care Provider Unavail [facility] Rosetta Diamond MD Primary Care Provider + Encounter Details Date Type Department Care Team Description 08/17/2009 Hospital Medical Records [address] [place] [id number] Sony Rohtman Social History Tobacco Use Types Packs/Day Years [...] on filedocumented in this encounter Care Teams Forward Air Controller/Air Officer Relationship Specialty Start Date End Date Nikki Alcantar MD [address] [place] [address] PCP - General 06/26/05 03/04/17 Michelle Norris MD [address] [place] [address] PCP - General Internal Medicine 03/05/17 03/16/21 [facility]cp [address] [place] [address] PCP - General Internal Medicine 03/17/21 05/04/21 Michelle Norris MD [address] [place] [address] [place] [address] PCP - General Internal Medicine 05/05/21 09/13/22 Rosetta Diamond MD [address] [place], [place] [phone] PCP - General Internal Medicine 09/14/22 documented as of this encounter
--- OUTSIDE RECORDS SUMMARY | 2025-06-15 15:48 | XMS_ITS | Encounter Summary ---
Author Organization [facility] Address [address] [place] [address] Care Team Providers Care Document Control Clerk Name Role Phone Michelle Norris MD Primary Care Provider Unavail [facility], Pcp [facility] Michelle Norris MD Primary Care Provider Unavail able Rosetta Diamond MD Primary Care Provider + Encounter Details Date Type Department Care Team Description 07/20/2017 Business Doc Medical Records [address] [place] [phone] Abstract, Provider Social History Tobacco Use Types [...] on filedocumented in this encounter Care Teams Document Control Clerk Relationship Specialty Start Date End Date Michelle Norris MD PCP - General Internal Medicine 03/05/17 03/16/21 [facility], Pcp PCP - General Internal Medicine 03/17/21 05/04/21 Michelle Norris MD PCP - General Internal Medicine 05/05/21 09/13/22 Rosetta Diamond MD [address] [place] [address] PCP - General Internal Medicine 09/14/22 documented as of this encounter
--- OUTSIDE RECORDS SUMMARY | 2025-06-15 15:48 | XMS_ITS | Clinical Summary ---
Author Organization [facility] Address [address] [place] [address] Care Team Providers Care Technician Support Engineer Name Role Phone Rosetta Diamond MD Primary Care Provider + Allergies Active Allergy Reactions Severity Noted Date Comments Codeine 04/21/2009 Unknown reaction Ziprasidone Hydrochloride 07/11/2012 Pt cant describe exact reaction Madeira OTHER 02/27/2013 Penicillins 08/01/2005 RXN UNKNOWN Prednisone [...] daily) 270 Lozenge 1 08/13/2020 Active Umeclidinium [place] (INCRUSE ELLIPTA) 62.5 MCG/INH AEROSOL POWDER,BREATH ACTIVATED [...] degree AV block 10/09/2017 Overview: Follows with [facility] 09/2017. Holter pending Pericardial effusion 10/09/2017 [...] Vaccine-quadrivale nt 4 Years Plus 06/25/2017 MMR (Rkosalc-Zmvyf-Yhtuqsp) 01/13/1990, 9 PPD-RBMG 01/17/2017, 1,11/14/2010,04/14,01/30/1991 Pneumoccoccal(Adult) Polysac [...] 80 07/01/2021 9:55 AM EDT Temperature 36.7 C (98 F) 04/13/2020 2:08 PM EDT Respiratory Rate 14 [...] 04/22/2024, 06/2024, 07/01/2021, Additional history exists INFLUENZA (#1) 2025 09/03/2019 (Comp leted), 09/03/2019, 08/28/2018, Additional history exists TOBACCO CHECK/ADVISE 04/22/2026 04/22/2024, 07/01/2021, 02/10/2021, Additional history exists CERVICAL CANCER SCREENING 04/22/20272023, 07/19/2017, 02/01/2012, Additional history exists DTAP/TDAP/TD (16 - Td or Tdap) 05/29/2032 0 05/29/2022, 04/20/2021, 08/31/2020, Additional history exists PNEUMOCOCCAL VACCINE FOR HIG H RISK PATIENTS (#2) 2042 12/15/2013 Care Teams Technician Support Engineer Relationship Specialty Start Date End Date Rosetta Diamond MD [address] [place] [address] [phone] PCP - General Internal Medicine 09/14/22
--- OUTSIDE RECORDS SUMMARY | 2025-06-15 15:48 | XMS_ITS | Encounter Summary ---
Author Organization [facility] Address [address] [place] [address] Care Team Providers Care Senior Health Consultant Name Role Phone Nikki Alcantar MD Primary Care Provider [phone] Michelle Norris MD Primary Care Provider Unavail [facility] Primary Care Provider [facility] Michelle Norris MD Primary Care Provider Unavail [facility] Rosetta Diamond MD Primary Care Provider + Encounter Details Date Type Department Care Team Description 05/12/2010 Hospital Medical Records [address] [place] [phone] RaúlRaquelSagar Social History Tobacco Use Types Packs/Day [...] filedocumented in this encounter Care Teams Senior Health Consultant Relationship Specialty Start Date End Date Nikki Alcantar MD [address] [place] [address] PCP - General 06/26/05 03/04/17 Michelle Norris MD [address] [place] [address] PCP - General Internal Medicine 03/05/17 03/16/21 [facility], Pcp [address] [place] [address] PCP - General Internal Medicine 03/17/21 05/04/21 Michelle Norris MD [address] [place] [address] [place] [address] PCP - General Internal Medicine 05/05/21 09/13/22 Rosetta Diamond MD [address] [place], [place] [phone] PCP - General Internal Medicine 09/14/22 documented as of this encounter
--- OUTSIDE RECORDS SUMMARY | 2025-06-15 15:48 | XMS_ITS | Encounter Summary ---
Author Organization [facility] Address [address] [place] [address] Care Team Providers Care Note Taker Name Role Phone Nikki Alcantar MD Primary Care Provider Michelle Norris MD Primary Care Provider Unavail able [facility] Primary Care Provider [facility] Michelle Norris MD Primary Care Provider Unavail [facility] Rosetta Diamond MD Primary Care Provider + Encounter Details Date Type Department Care Team Description 01/28/2014 [facility] Medical Records [address] [place] [id number] Abstract, Provider Social History Tobacco Use Types [...] on filedocumented in this encounter Care Teams Note Taker Relationship Specialty Start Date End Date Nikki Alcantar MD [address] [place] [address] PCP - General 06/26/05 03/04/17 Michelle Norris MD [address] [place] [address] PCP - General Internal Medicine 03/05/17 03/16/21 [facility], Pcp [address] [place] [address] PCP - General Internal Medicine 03/17/21 05/04/21 Michelle Norris MD [address] [place] [address] PCP - General Internal Medicine 05/05/21 09/13/22 Rosetta Diamond MD [address] [place], [place] [phone] PCP - General Internal Medicine 09/14/22 documented as of this encounter
--- OUTSIDE RECORDS SUMMARY | 2025-06-15 15:48 | XMS_ITS | Encounter Summary ---
Author Organization [facility] Address [address] [place] [address] Care Team Providers Care Community Outreach Director Name Role Phone Michelle Norris MD Primary Care Provider [facility]ail [facility], Pcp [facility] Michelle Norris MD Primary Care Provider Unavail able Rosetta Diamond MD Primary Care Provider + Encounter Details Date Type Department Care Team Description 08/08/2019 Old Medical Records Medical Records [address] [place] [address] Abstract, Provider Social History Tobacco Use Types [...] filedocumented in this encounter Care Teams Community Outreach Director Relationship Specialty Start Date End Date Michelle Norris MD PCP - General Internal Medicine 03/05/17 03/16/21 [facility], Pcp PCP - General Internal Medicine 03/17/21 05/04/21 Michelle Norris MD PCP - General Internal Medicine 05/05/21 09/13/22 Rosetta Diamond MD [address] [place] [address] PCP - General Internal Medicine 09/14/22 documented as of this encounter
--- OUTSIDE RECORDS SUMMARY | 2025-06-15 15:48 | XMS_ITS | Encounter Summary ---
Author Organization [facility] Address [address] [place] [address] Care Team Providers Care Thermostatic Controls Supervisor Name Role Phone Nikki Alcantar MD Primary Care Provider [phone] Michelle Norris MD Primary Care Provider Unavail [facility] Primary Care Provider [facility] Michelle Norris MD Primary Care Provider Unavail [facility] Rosetta Diamond MD Primary Care Provider + Encounter Details Date Type Department Care Team Description 12/24/2013 Hospital Medical Records [address] [place] [phone] Marlen Grande Social History Tobacco Use Types [...] on filedocumented in this encounter Care Teams Thermostatic Controls Supervisor Relationship Specialty Start Date End Date Nikki Alcantar MD [address] [place] [address] PCP - General 06/26/05 03/04/17 Michelle Norris MD [address] [place] [address] PCP - General Internal Medicine 03/05/17 03/16/21 [facility], Pcp [address] [place] [address] PCP - General Internal Medicine 03/17/21 05/04/21 Michelle Norris MD [address] [place] [address] PCP - General Internal Medicine 05/05/21 09/13/22 Rosetta Diamond MD [address] [place] [phone] PCP - General Internal Medicine 09/14/22 documented as of this encounter
--- OUTSIDE RECORDS SUMMARY | 2025-06-15 15:48 | XMS_ITS | Encounter Summary ---
Author Organization [facility] Address [address] [place] [address] Care Team Providers Care Aerospace Engineer Officer Armament Name Role Phone Nikki Alcantar MD Primary Care Provider [phone] Michelle Norris MD Primary Care Provider Unavail [facility] Primary Care Provider [facility] Michelle Norris MD Primary Care Provider [facility] Rosetta Diamond MD Primary Care Provider + Encounter Details Date Type Department Care Team Description 11/15/2010 Business Doc Medical Records [address] [place] [phone] Abstract, Provider Social History Tobacco Use Types [...] on filedocumented in this encounter Care Teams Aerospace Engineer Officer Armament Relationship Specialty Start Date End Date Nikki Alcantar MD [address] [place] [address] PCP - General 06/26/05 03/04/17 Michelle Norris MD [address] [place] [address] PCP - General Internal Medicine 03/05/17 03/16/21 [facility], Pcp [address] [place] [address] PCP - General Internal Medicine 03/17/21 05/04/21 Michelle Norris MD [address] [place] [address] PCP - General Internal Medicine 05/05/21 09/13/22 Rosetta Diamond MD [address] [place] [address] PCP - General Internal Medicine 09/14/22 documented as of this encounter
--- OUTSIDE RECORDS SUMMARY | 2025-06-15 15:48 | XMS_ITS | Encounter Summary ---
Author Organization [facility] Address [address] [place] [address] Care Team Providers Care Biomedical Electronics Technician Name Role Phone Nikki Alcantar MD Primary Care Provider [phone] Michelle Norris MD Primary Care Provider Unavail able [facility] Primary Care Provider [facility] Michelle Norris MD Primary Care Provider Unavail able Rosetta Diamond MD Primary Care Provider + Reason for Visit * Reason Onset Date Comments VNA Call 08/18/2016 Encounter Details Date Type Department Care Team Description 08/18/2016 Telephone Adult Medicine [address] [phone] Nikki Alcantar MD [address] [place] [address] [phone] VNA Call Social History Tobacco Use Types [...] on filedocumented in this encounter Care Teams Biomedical Electronics Technician Relationship Specialty Start Date End Date Nikki Alcantar MD [address] [place] [address] PCP - General 06/26/05 03/04/17 Michelle Norris MD [address] [place], [place] [phone] PCP - General Internal Medicine 03/05/17 03/16/21 [place] [address] PCP - General Internal Medicine 03/17/21 05/04/21 Michelle Norris MD [address] [place] [address] PCP - General Internal Medicine 05/05/21 09/13/22 Rosetta Diamond MD [address] [place] [address] PCP - General Internal Medicine 09/14/22 documented as of this encounter
--- OUTSIDE RECORDS SUMMARY | 2025-06-15 15:48 | XMS_ITS | Encounter Summary ---
Author Organization [facility] Address [address] [place] [address] Care Team Providers Care Hearing Instrument Specialist Name Role Phone Nikki Alcantar MD Primary Care Provider Michelle Norris MD Primary Care Provider Unavail [facility] Primary Care Provider [facility] Michelle Norris MD Primary Care Provider Unavail [facility] Rosetta Diamond MD Primary Care Provider + Encounter Details Date Type Department Care Team Description 07/07/2013 Telephone Adult Medicine [address] [phone] Nikki Alcantar MD [address] [place] [address] [phone] Social History Tobacco Use Types Packs/Day Years [...] on filedocumented in this encounter Care Teams Hearing Instrument Specialist Relationship Specialty Start Date End Date Nikki Alcantar MD [address] [place] [address] [phone] PCP - General 06/26/05 03/04/17 Michelle Norris MD [address] [place] [address] PCP - General Internal Medicine 03/05/17 03/16/21 [facility], Pcp [address] [place] [address] PCP - General Internal Medicine 03/17/21 05/04/21 Michelle Norris MD [address] [place] [address] PCP - General Internal Medicine 05/05/21 09/13/22 Rosetta Diamond MD [address] [place] [address] PCP - General Internal Medicine 09/14/22 documented as of this encounter
--- OUTSIDE RECORDS SUMMARY | 2025-06-15 15:48 | XMS_ITS | Encounter Summary ---
Author Organization [facility] Address [address] [place] [address] Care Team Providers Care Back Office Medical Assistant Name Role Phone Nikki Alcantar MD Primary Care Provider [phone] Michelle Norris MD Primary Care Provider Unavail [facility] Primary Care Provider [facility] Michelle Norris MD Primary Care Provider Unavail [facility] Rosetta Diamond MD Primary Care Provider + Encounter Details Date Type Department Care Team Description 07/14/2013 Hospital Medical Records [address] [place] [id number] Social History Tobacco Use Types Packs/Day Years [...] on filedocumented in this encounter Care Teams Back Office Medical Assistant Relationship Specialty Start Date End Date Nikki Alcantar MD [address] [place] [phone] PCP - General 06/26/05 03/04/17 Michelle Norris MD [address] [place] [address] PCP - General Internal Medicine 03/05/17 03/16/21 [facility], Pcp [address] [place] [address] PCP - General Internal Medicine 03/17/21 05/04/21 Michelle Norris MD [address] [place] [address] PCP - General Internal Medicine 05/05/21 09/13/22 Rosetta Diamodn MD [address] [place] [address] KARTIK CHEN [address] PCP - General Internal Medicine 09/14/22 documented as of this encounter
--- OUTSIDE RECORDS SUMMARY | 2025-06-15 15:48 | XMS_ITS | Encounter Summary ---
Author Organization [facility] Address [address] [place] [address] Care Team Providers Care Tsa Screener Name Role Phone Nikki Alcantar MD Primary Care Provider [phone] Michelle Norris MD Primary Care Provider Unavail able [facility] Michelle Norris MD Primary Care Provider Unavail able Rosetta Diamond MD Primary Care Provider + Reason for Visit * Reason Onset Date Comments Faxed Order 08/28/2016 Encounter Details Date Type Department Care Team Description 08/28/2016 Telephone Adult Medicine [address] [id number] Nikki Alcantar MD [address] [place] [address] [phone] Faxed Order Social History Tobacco Use Types [...] on filedocumented in this encounter Care Teams Tsa Screener Relationship Specialty Start Date End Date Nikki Alcantar MD [address] [place] [address] PCP - General 06/26/05 03/04/17 Michelle Norris MD [address] [place] [address] PCP - General Internal Medicine 03/05/17 03/16/21 [place] [address] PCP - General Internal Medicine 03/17/21 05/04/21 Michelle Norris MD [address] [place] [address] PCP - General Internal Medicine 05/05/21 09/13/22 Rosetta Diamond MD [address] [place] [address] PCP - General Internal Medicine 09/14/22 documented as of this encounter
--- OUTSIDE RECORDS SUMMARY | 2025-06-15 15:48 | XMS_ITS | Encounter Summary ---
Author Organization [facility] Address [address] [place] [address] Care Team Providers Care Catheter Builder Name Role Phone Nikki Alcantar MD Primary Care Provider Michelle Norris MD Primary Care Provider Unavail [facility] Primary Care Provider [facility] Michelle Norris MD Primary Care Provider Unavail [facility] Rosetta Diamond MD Primary Care Provider + Encounter Details Date Type Department Care Team Description 10/28/2009 Hospital Medical Records [address] [place] [id number] Jose Echols MD Social History Tobacco Use [...] on filedocumented in this encounter Care Teams Catheter Builder Relationship Specialty Start Date End Date Nikki Alcantar MD [address] [place] [address] PCP - General 06/26/05 03/04/17 Michelle Norris MD [address] [place] [address] PCP - General Internal Medicine 03/05/17 03/16/21 Counts Include [facility], Pcp [address] [place] [address] PCP - General Internal Medicine 03/17/21 05/04/21 Michelle Norris MD [address] [place] [address] PCP - General Internal Medicine 05/05/21 09/13/22 Rosetta Diamond MD [address] [place] [address] PCP - General Internal Medicine 09/14/22 documented as of this encounter
--- OUTSIDE RECORDS SUMMARY | 2025-06-15 15:48 | XMS_ITS | Encounter Summary ---
Author Organization [facility] Address [address] [place] [address] Care Team Providers Care Clinical Trials Systems Administrator Name Role Phone Nikki Alcantar MD Primary Care Provider [phone] Michelle Norris MD Primary Care Provider Unavail [facility] Primary Care Provider [facility] Michelle Norris MD Primary Care Provider Unavail able Rosetta Diamond MD Primary Care Provider + Reason for Visit * Reason Onset Date Comments Call From Hospital 06/07/2016 Encounter Details Date Type Department Care Team Description 06/07/2016 Telephone Adult Medicine [address] 1120020 Nikki Alcantar MD [address] [place] [address] [phone] Call From Hospital Social History Tobacco Use [...] Donavon Harvey - 06/07/2016 8:48 AM EDT [facility] Phsyc unit calling to inform us that patient was admitted to phsyc unit yesterday documented in this encounter Plan of Treatment Not on file documented as of this encounter Visit Diagnoses Not on filedocumented in this encounter Care Teams Clinical Trials Systems Administrator Relationship Specialty Start Date End Date Nikki Alcantar MD [address] [place] [address] PCP - General 06/26/05 03/04/17 Michelle Norris MD [address] [place] [address] PCP - General Internal Medicine 03/05/17 03/16/21 [place] [address] PCP - General Internal Medicine 03/17/21 05/04/21 Michelle Norris MD [address] [place] [address] PCP - General Internal Medicine 05/05/21 09/13/22 Rosetta Diamond MD [address] [place], [place] [id number] PCP - General Internal Medicine 09/14/22 documented as of this encounter
--- OUTSIDE RECORDS SUMMARY | 2025-06-15 15:48 | XMS_ITS | Encounter Summary ---
Author Organization [facility] Address [address] [place] [address] Care Team Providers Care Scaffold Worker Name Role Phone Michelle Norris MD Primary Care Provider Unavail able [facility], Pcp [facility] Michelle Lagos MD Primary Care Provider Unavail able Rosetta Diamond MD Primary Care Provider + Reason for Visit * Reason Onset Date Comments Faxed Order 09/19/2019 Encounter Details Date Type Department Care Team Description 09/19/2019 Telephone Adult [address] [address] Michelle Norris MD Faxed Order Social History [...] EST Faxed orders received from [facility], please sign and fax back to [phone]. documented in this encounter Plan of Treatment Not on file documented as of this encounter Visit Diagnoses Not on filedocumented in this encounter Care Teams Scaffold Worker Relationship Specialty Start Date End Date Michelle Norris MD PCP - General Internal Medicine 03/05/17 03/16/21 [facility], Pcp PCP - General Internal Medicine 03/17/21 05/04/21 Michelle Norris MD PCP - General Internal Medicine 05/05/21 09/13/22 Rosetta Diamond MD [address] [place] [address] PCP - General Internal Medicine 09/14/22 documented as of this encounter
--- OUTSIDE RECORDS SUMMARY | 2025-06-15 15:48 | XMS_ITS | Encounter Summary ---
Author Organization [facility] Address [address] [place] [address] Care Team Providers Care Yarn Handler Name Role Phone Nikki Alcantar MD Primary Care Provider [phone] Michelle Norris MD Primary Care Provider Unavail able [facility] Michelle Norris MD Primary Care Provider Unavail able Rosetta Diamond MD Primary Care Provider + Reason for Visit * Reason Onset Date Comments VNA Call 09/05/2016 Encounter Details Date Type Department Care Team Description 09/05/2016 Telephone Adult Medicine [address] [phone] Nikki Alcantar MD [address] [place] [address] [phone] [facility] Call Social History Tobacco Use Types [...] on filedocumented in this encounter Care Teams Yarn Handler Relationship Specialty Start Date End Date Nikki Alcantar MD [address] [place] [address] PCP - General 06/26/05 03/04/17 Michelle Norris MD [address] [place] [address] PCP - General Internal Medicine 03/05/17 03/16/21 [place] [address] PCP - General Internal Medicine 03/17/21 05/04/21 Michelle Norris MD [address] [place] [address] PCP - General Internal Medicine 05/05/21 09/13/22 Rosetta Diamond MD [address] [place] [address] PCP - General Internal Medicine 09/14/22 documented as of this encounter
--- OUTSIDE RECORDS SUMMARY | 2025-06-15 15:48 | XMS_ITS | Encounter Summary ---
Author Organization [facility] Address [address] [place] [address] Care Team Providers Care Bulk Station Agent Name Role Phone Michelle Norris MD Primary Care Provider Unavail able [facility], [facility] Primary [facility] Michelle Lagos MD Primary Care Provider Unavail able Rosetta Diamond MD Primary Care Provider + Reason for Visit * Reason Onset Date Comments Medication 10/11/2017 Encounter Details Date Type Department Care Team Description 10/11/2017 Telephone Adult Medicine [address] [address] Michelle Norris MD Medication Social History Tobacco Use Types Packs/Day Years [...] Telephone Encounter - Michelle Norris MD - 10/17/2017 12:04 PM EST Medications will be addressed on [facility] follow up visit * Telephone Encounter - Lucita Hill M.A. - 10/17/2017 11:31 AM EST Spoke with Karishma at [facility] and let them know that these medications will be discussed at her hospital follow up visit. Dr. Griffiths you had suggested this is a routing comment and unfortunately they do not save as documentation or as notes, can you just okay this and document that this will be addressed at her next appt? Thanks! * Telephone Encounter - Lucita Hill M.A. - 10/17/2017 11:07 AM EST LM for Adina or Karishma at [facility] to let them know that we will discuss medications at upcoming hospitalfollow up as you had suggested but they have not returned my calls and are continuing to make requests for these medications. Lucita Hill CMA [phone] * Telephone Encounter - Megan Newton - 10/17/2017 8:54 AM EST Karishma calling for refill of the fenofibrate 145 mg once daily [phone] * Telephone Encounter - Lucita Hill M.A. - 10/16/2017 11:07 AM EST LM for Adina from [facility] to return my call Lucita Hill CMA [phone] * Telephone Encounter - Lucita Hill M.A. - 10/11/2017 4:42 PM EST Please let me know! * Telephone Encounter - Deanna Oglesby - 10/11/2017 4:32 PM EST Adina Virgen from [facility], - Pt was given Fioricet and Fenofibrate at a hospital stay, can these prescriptions be prescribed documented in this encounter Plan of Treatment Not on file documented as of this encounter Visit Diagnoses Not on filedocumented in this encounter Care Teams Bulk Station Agent Relationship Specialty Start Date End Date Michelle Norris MD PCP - General Internal Medicine 03/05/17 03/16/21 [facility], Pcp PCP - General Internal Medicine 03/17/21 05/04/21 Michelle Norris MD PCP - General Internal Medicine 05/05/21 09/13/22 Rosetta Diamond MD [address] [place] [address] PCP - General Internal Medicine 09/14/22 documented as of this encounter
--- OUTSIDE RECORDS SUMMARY | 2025-06-15 15:48 | XMS_ITS | Encounter Summary ---
Author Organization [facility] Address [address] [place] [address] Care Team Providers Care Silver Holloware Assembler Name Role Phone Nikki Alcantar MD Primary Care Provider [phone] Michelle Norris MD Primary Care Provider Unavail [facility] Primary Care Provider [facility] Michelle Norris MD Primary Care Provider Unavail [facility] Rosetta Diamond MD Primary Care Provider + Encounter Details Date Type Department Care Team Description 05/24/2016 Hospital Medical Records [address] [place] [phone] Chuck Dave MD Social History Tobacco Use [...] on filedocumented in this encounter Care Teams Silver Holloware Assembler Relationship Specialty Start Date End Date Nikki Alcantar MD [address] [place] [address] PCP - General 06/26/05 03/04/17 Michelle Norris MD [address] [place] [address] PCP - General Internal Medicine 03/05/17 03/16/21 [facility], Pcp [address] [place] [address] PCP - General Internal Medicine 03/17/21 05/04/21 Michelle Norris MD [address] [place] [address] PCP - General Internal Medicine 05/05/21 09/13/22 Rosetta Diamond MD [address] [place] [address] PCP - General Internal Medicine 09/14/22 documented as of this encounter
--- OUTSIDE RECORDS SUMMARY | 2025-06-15 15:48 | XMS_ITS | Encounter Summary ---
Author Organization [facility] Address [address] [place] [address] Care Team Providers Care Car Knocker Name Role Phone Nikki Alcantar MD Primary Care Provider [phone] Michelle Norris MD Primary Care Provider Unavail [facility] Primary Care Provider [facility] Michelle Norris MD Primary Care Provider Unavail [facility] Rosetta Diamond MD Primary Care Provider + Encounter Details Date Type Department Care Team Description 10/01/2013 Hospital Medical Records [address] [place] [address] Richard Nevarez Social History Tobacco Use Types [...] filedocumented in this encounter Care Teams Car Knocker Relationship Specialty Start Date End Date Nikki Alcantar MD [address] [place] [address] PCP - General 06/26/05 03/04/17 Michelle Norris MD [address] [place] [address] PCP - General Internal Medicine 03/05/17 03/16/21 [facility], Pcp [address] [place] [address] PCP - General Internal Medicine 03/17/21 05/04/21 Michelle Norris MD [address] [place] [address] PCP - General Internal Medicine 05/05/21 09/13/22 Rosetta Diamond MD [address] [place] [address] PCP - General Internal Medicine 09/14/22 documented as of this encounter
--- OUTSIDE RECORDS SUMMARY | 2025-06-15 15:48 | XMS_ITS | Encounter Summary ---
Author Organization [facility] Address [address] [place] [address] Care Team Providers Care Esl Instructor Name Role Phone Nikki Alcantar MD Primary Care Provider [phone] Michelle Norris MD Primary Care Provider Unavail [facility] Primary Care Provider [facility] Michelle Norris MD Primary Care Provider Unavail [facility] Rosetta Diamond MD Primary Care Provider + Encounter Details Date Type Department Care Team Description 10/30/2009 Hospital Medical Records [address] [place] [address] Reena Dominguez Social History Tobacco Use Types [...] on filedocumented in this encounter Care Teams Esl Instructor Relationship Specialty Start Date End Date Nikki Alcantar MD [address] [place] [address] PCP - General 06/26/05 03/04/17 Michelle Norris MD [address] [place] [address] PCP - General Internal Medicine 03/05/17 03/16/21 [facility], Pcp [address] [place] [address] PCP - General Internal Medicine 03/17/21 05/04/21 Michelle Norris MD [address] [place] [address] [place] [address] PCP - General Internal Medicine 05/05/21 09/13/22 Rosetta Diamond MD [address] [place], [place] [phone] PCP - General Internal Medicine 09/14/22 documented as of this encounter
--- OUTSIDE RECORDS SUMMARY | 2025-06-15 15:48 | XMS_ITS | Encounter Summary ---
Author Organization [facility] Address [address] [place] [address] Care Team Providers Care Staff Electronic Warfare Officer Name Role Phone Nikki Alcantar MD Primary Care Provider [phone] Michelle Norris MD Primary Care Provider Unavail [facility] Primary Care Provider [facility] Michelle Norris MD Primary Care Provider Unavail [facility] Rosetta Diamond MD Primary Care Provider + Encounter Details Date Type Department Care Team Description 10/07/2010 Hospital Medical Records [address] [place] [phone] Alverto Hernandez Social History Tobacco Use Types [...] filedocumented in this encounter Care Teams Staff Electronic Warfare Officer Relationship Specialty Start Date End Date Nikki Alcantar MD [address] [place] [address] PCP - General 06/26/05 03/04/17 Michelle Norris MD [address] [place] [address] PCP - General Internal Medicine 03/05/17 03/16/21 [facility], Pcp [address] [place] [address] PCP - General Internal Medicine 03/17/21 05/04/21 Michelle Norris MD [address] [place] [address] PCP - General Internal Medicine 05/05/21 09/13/22 Rosetta Diamond MD [address] [place] [address] PCP - General Internal Medicine 09/14/22 documented as of this encounter
--- OUTSIDE RECORDS SUMMARY | 2025-06-15 15:48 | XMS_ITS | Encounter Summary ---
Author Organization [facility] Address [address] [place] [address] Care Team Providers Care Joss House Keeper Name Role Phone Michelle Norris MD Primary Care Provider Unavail able Rosetta Diamond MD Primary Care Provider + Encounter Details Date Type Department Care Team Description 05/17/2021 Immigration Investigator Report Medical Records [address] [place] [address] Robby Bazan Social History Tobacco Use Types [...] on filedocumented in this encounter Care Teams Joss House Keeper Relationship Specialty Start Date End Date Michelle Norris MD PCP - General Internal Medicine 05/05/21 09/13/22 Rosetta Diamond MD [address] [place] [address] PCP - General Internal Medicine 09/14/22 documented as of this encounter
--- OUTSIDE RECORDS SUMMARY | 2025-06-15 15:48 | XMS_ITS | Encounter Summary ---
Author Organization [facility] Address [address] [place] [address] Care Team Providers Care Talent Analyst Name Role Phone Michelle Norris MD Primary Care Provider Unavail [facility] Michelle Norris MD Primary Care Provider Unavail able Rosetta Diamond MD Primary Care Provider + Encounter Details Date Type Department Care Team Description 11/19/2017 Hospital Medical Records [address] [place] [phone] Carlos Landrum Social History Tobacco Use Types [...] on filedocumented in this encounter Care Teams Talent Analyst Relationship Specialty Start Date End Date Michelle Norris MD PCP - General Internal Medicine 03/05/17 03/16/21 [facility], Pcp PCP - General Internal Medicine 03/17/21 05/04/21 Michelle Norris MD PCP - General Internal Medicine 05/05/21 09/13/22 Rosetta Diamond MD [address] [place] [address] PCP - General Internal Medicine 09/14/22 documented as of this encounter
--- OUTSIDE RECORDS SUMMARY | 2025-06-15 15:48 | XMS_ITS | Encounter Summary ---
Author Organization [facility] Address [address] [place] [address] Care Team Providers Care Technology Lab Teacher Name Role Phone Nikki Alcantar MD Primary Care Provider [phone] Michelle Norris MD Primary Care Provider Unavail [facility] Primary Care Provider [facility] Michelle Norris MD Primary Care Provider Unavail [facility] Rosetta Diamond MD Primary Care Provider + Encounter Details Date Type Department Care Team Description 04/23/2016 Hospital Medical Records [address] [place] [phone] Rod Mccoy MD Social History Tobacco Use [...] on filedocumented in this encounter Care Teams Technology Lab Teacher Relationship Specialty Start Date End Date Nikki Alcantar MD [address] [place] [address] PCP - General 06/26/05 03/04/17 Michelle Norris MD [address] [place] [address] PCP - General Internal Medicine 03/05/17 03/16/21 [facility], Pcp [address] [place] [address] PCP - General Internal Medicine 03/17/21 05/04/21 Michelle Norris MD [address] [place] [address] PCP - General Internal Medicine 05/05/21 09/13/22 Rosetta Diamond MD [address] [place] [address] PCP - General Internal Medicine 09/14/22 documented as of this encounter
--- OUTSIDE RECORDS SUMMARY | 2025-06-15 15:48 | XMS_ITS | Encounter Summary ---
Author Organization [facility] Address [address] [place] [address] Care Team Providers Care Maritime Pilot Name Role Phone Nikki Alcantar MD Primary Care Provider [phone] Michelle Norris MD Primary Care Provider Unavail [facility] Primary Care Provider [facility] Michelle Norris MD Primary Care Provider Unavail [facility] Rosetta Diamond MD Primary Care Provider + Encounter Details Date Type Department Care Team Description 05/11/2010 Hospital Medical Records [address] [place] [address] Gulshan Alanis MD Social History Tobacco Use [...] on filedocumented in this encounter Care Teams Maritime Pilot Relationship Specialty Start Date End Date Nikki Alcantar MD [address] [place] [address] PCP - General 06/26/05 03/04/17 Michelle Norris MD [address] [place] [address] PCP - General Internal Medicine 03/05/17 03/16/21 [facility], Pcp [address] [place] [address] PCP - General Internal Medicine 03/17/21 05/04/21 Michelle Norris MD [address] [place] [address] PCP - General Internal Medicine 05/05/21 09/13/22 Rosetta Diamond MD [address] [place] [address] PCP - General Internal Medicine 09/14/22 documented as of this encounter
--- OUTSIDE RECORDS SUMMARY | 2025-06-15 15:48 | XMS_ITS | Encounter Summary ---
Author Organization [facility] Address [address] [place] [address] Care Team Providers Care Store Loss Prevention Manager Name Role Phone Nikki Alcantar MD Primary Care Provider [phone] Michelle Norris MD Primary Care Provider Unavail [facility] Primary Care Provider [facility] Michelle Norris MD Primary Care Provider Unavail [facility] Rosetta Diamond MD Primary Care Provider + Encounter Details Date Type Department Care Team Description 01/01/2014 Artist Relationship Manager Report Medical Records [address] [place] [phone] Julio Paredes MD Social History Tobacco Use [...] on filedocumented in this encounter Care Teams Store Loss Prevention Manager Relationship Specialty Start Date End Date Nikki Alcantar MD [address] [place] [address] PCP - General 06/26/05 03/04/17 Michelle Norris MD [address] [place] [address] PCP - General Internal Medicine 03/05/17 03/16/21 [facility] Pcp [address] [place] [address] PCP - General Internal Medicine 03/17/21 05/04/21 Michelle Norris MD [address] [place] [address] [place] [address] PCP - General Internal Medicine 05/05/21 09/13/22 Rosetta Diamond MD [address] [place], [place] [phone] PCP - General Internal Medicine 09/14/22 documented as of this encounter
--- OUTSIDE RECORDS SUMMARY | 2025-06-15 15:48 | XMS_ITS | Encounter Summary ---
Author Organization [facility] Address [address] [place] [address] Care Team Providers Care Dish Washer Name Role Phone Michelle Norris MD Primary Care Provider Unavail [facility] Michelle Norris MD Primary Care Provider Unavail able Rosetta Diamond MD Primary Care Provider + Encounter Details Date Type Department Care Team Description 10/16/2017 Hospital Medical Records [address] [place] [address] Marlen Grande Social History Tobacco Use Types [...] on filedocumented in this encounter Care Teams Dish Washer Relationship Specialty Start Date End Date Michelle Norris MD PCP - General Internal Medicine 03/05/17 03/16/21 [facility], Pcp PCP - General Internal Medicine 03/17/21 05/04/21 Michelle Norris MD PCP - General Internal Medicine 05/05/21 09/13/22 Rosetta Diamond MD [address] [place] [address] PCP - General Internal Medicine 09/14/22 documented as of this encounter
--- OUTSIDE RECORDS SUMMARY | 2025-06-15 15:48 | XMS_ITS | Encounter Summary ---
Author Organization [facility] Address [address] [place] [address] Care Team Providers Care Senior Maintenance Technician Name Role Phone Nikki Alcantar MD Primary Care Provider [phone] Michelle Norris MD Primary Care Provider Unavail [facility] Primary Care Provider [facility] Michelle Norris MD Primary Care Provider Unavail [facility] Rosetta Diamond MD Primary Care Provider + Encounter Details Date Type Department Care Team Description 07/10/2011 Hospital Medical Records [address] [place] [address] Julio Gilmore Social History Tobacco Use Types [...] filedocumented in this encounter Care Teams Senior Maintenance Technician Relationship Specialty Start Date End Date Nikki Alcantar MD [address] [place] [address] 87817 PCP - General 06/26/05 03/04/17 Michelle Norris MD [address] [place] [address] 27853 PCP - General Internal Medicine 03/05/17 03/16/21 [facility], Pcp [address] [place] [address] 80658 PCP - General Internal Medicine 03/17/21 05/04/21 Michelle Norris MD [address] [place] [address] 22976 PCP - General Internal Medicine 05/05/21 09/13/22 Rosetta Diamond MD [address] [place] [address] PCP - General Internal Medicine 09/14/22 documented as of this encounter
--- OUTSIDE RECORDS SUMMARY | 2025-06-15 15:48 | XMS_ITS | Encounter Summary ---
Author Organization [facility] Address [address] [place] [address] Care Team Providers Care Electrotype Molder Name Role Phone Nikki Alcantar MD Primary Care Provider [phone] Michelle Norris MD Primary Care Provider Unavail [facility] Primary Care Provider [facility] Michelle Norris MD Primary Care Provider Unavail [facility] Rosetta Diamond MD Primary Care Provider + Encounter Details Date Type Department Care Team Description 08/19/2009 Hospital Medical Records [address] [place] [address] Sumeet Yadav Social History Tobacco Use Types [...] on filedocumented in this encounter Care Teams Electrotype Molder Relationship Specialty Start Date End Date Nikki Alcantar MD [address] [place] [address] 73196 PCP - General 06/26/05 03/04/17 Michelle Norris MD [address] [place] [address] PCP - General Internal Medicine 03/05/17 03/16/21 [facility], Pcp [address] [place] [address] PCP - General Internal Medicine 03/17/21 05/04/21 Michelle Norris MD [address] [place] [address] [place] [address] PCP - General Internal Medicine 05/05/21 09/13/22 Rosetta Diamond MD [address] [place], [place] [phone] PCP - General Internal Medicine 09/14/22 documented as of this encounter
--- OUTSIDE RECORDS SUMMARY | 2025-06-15 15:48 | XMS_ITS | Encounter Summary ---
Author Organization [facility] Address [address] [place] [address] Care Team Providers Care Anesthesia Attending Name Role Phone Michelle Norris MD Primary Care Provider [facility]ail [facility] Michelle Norris MD Primary Care Provider Unavail able Rosetta Diamond MD Primary Care Provider + Encounter Details Date Type Department Care Team Description 10/16/2017 Hospital Medical Records [address] [place] [address] Carlos Landrum Social History Tobacco Use Types [...] on filedocumented in this encounter Care Teams Anesthesia Attending Relationship Specialty Start Date End Date Michelle Norris MD PCP - General Internal Medicine 03/05/17 03/16/21 [facility], Pcp PCP - General Internal Medicine 03/17/21 05/04/21 Michelle Norris MD PCP - General Internal Medicine 05/05/21 09/13/22 Rosetta Diamond MD [address] [place] [address] PCP - General Internal Medicine 09/14/22 documented as of this encounter
--- OUTSIDE RECORDS SUMMARY | 2025-06-15 15:48 | XMS_ITS | Encounter Summary ---
Author Organization [facility] Address [address] [place] [address] Care Team Providers Care Show Horse Driver Name Role Phone Nikki Alcantar MD Primary Care Provider Michelle Norris MD Primary Care Provider Unavail [facility] Primary Care Provider [facility] Michelle Norris MD Primary Care Provider Unavail [facility] Rosetta Diamond MD Primary Care Provider + Encounter Details Date Type Department Care Team Description 2009 Hospital Medical Records [address] [place] [address] Jose G Santos MD Social History Tobacco [...] on filedocumented in this encounter Care Teams Show Horse Driver Relationship Specialty Start Date End Date Nikki Alcantar MD [address] [place] [address] 84697 PCP - General 06/26/05 03/04/17 Michelle Norris MD [address] [place] [address] 92720 PCP - General Internal Medicine 03/05/17 03/16/21 [facility], Pcp [address] [place] [address] 11913 PCP - General Internal Medicine 03/17/21 05/04/21 Michelle Norris MD [address] [place] [address] 77412 PCP - General Internal Medicine 05/05/21 09/13/22 Rosetta Diamond MD [address] [place] [address] PCP - General Internal Medicine 09/14/22 documented as of this encounter
--- OUTSIDE RECORDS SUMMARY | 2025-06-15 15:48 | XMS_ITS | Encounter Summary ---
Author Organization [facility] Address [address] [place] [address] Care Team Providers Care Urgent Care Physician Assistant Name Role Phone Nikki Alcantar MD Primary Care Provider [phone] Michelle Norris MD Primary Care Provider Unavail [facility] Primary Care Provider [facility] Michelle Norris MD Primary Care Provider Unavail [facility] Rosetta Diamond MD Primary Care Provider + Encounter Details Date Type Department Care Team Description 09/30/2010 Hospital Medical Records [address] [place] [address] María Elena Shelly Social History Tobacco Use [...] on filedocumented in this encounter Care Teams Urgent Care Physician Assistant Relationship Specialty Start Date End Date Nikki Alcantar MD [address] [place] [address] 88840 PCP - General 06/26/05 03/04/17 Michelle Norris MD [address] [place] [address] 77275 PCP - General Internal Medicine 03/05/17 03/16/21 [facility], Pcp [address] [place] [address] PCP - General Internal Medicine 03/17/21 05/04/21 Michelle Norris MD [address] [place], [place] [phone] PCP - General Internal Medicine 05/05/21 09/13/22 Rosetta Diamond MD [address] [place] [address] PCP - General Internal Medicine 09/14/22 documented as of this encounter
--- OUTSIDE RECORDS SUMMARY | 2025-06-15 15:48 | XMS_ITS | Encounter Summary ---
Author Organization [facility] Address [address] [place] [address] Care Team Providers Care Behavioral Health Technician Name Role Phone Michelle Norris MD Primary Care Provider Unavail able [facility], Pcp Primary Care Provider Michelle Abdi MD Primary Care Provider Unavail able Rosetta Diamond MD Primary Care Provider + Reason for Visit * Reason Onset Date Comments hospital follow up 09/05/2017 Encounter Details Date Type Department Care Team Description 09/05/2017 Telephone Adult [address] [address] Michelle Norris MD hospital follow up Social [...] 09/05/2017 10:11 AM EST Patient admitted at [facility] today. documented in this encounter Plan of Treatment Not on file documented as of this encounter Visit Diagnoses Not on filedocumented in this encounter Care Teams Behavioral Health Technician Relationship Specialty Start Date End Date Michelle Norris MD PCP - General Internal Medicine 03/05/17 03/16/21 Counts Include [facility], Pcp PCP - General Internal Medicine 03/17/21 05/04/21 Michelle Norris MD PCP - General Internal Medicine 05/05/21 09/13/22 Rosetta Diamond MD [address] [place] [address] PCP - General Internal Medicine 09/14/22 documented as of this encounter
--- OUTSIDE RECORDS SUMMARY | 2025-06-15 15:48 | XMS_ITS | Encounter Summary ---
Author Organization [facility] Address [address] [place] [address] Care Team Providers Care Senior Report Developer Name Role Phone Michelle Norris MD Primary Care Provider Un[facility]ail [facility], Pcp Primary Care Provider Unavailabl e Michelle Norris MD Primary Care Provider Unavail able Rosetta Diamond MD Primary Care Provider + Encounter Details Date Type Department Care Team Description 08/14/2019 Hospital Medical Records [address] [place] [phone] Miles Shah MD Social History Tobacco Use [...] filedocumented in this encounter Care Teams Senior Report Developer Relationship Specialty Start Date End Date Michelle Norris MD PCP - General Internal Medicine 03/05/17 03/16/21 [facility], Pcp PCP - General Internal Medicine 03/17/21 05/04/21 Michelle Norris MD PCP - General Internal Medicine 05/05/21 09/13/22 Rosetta Diamond MD [address] [place] [address] PCP - General Internal Medicine 09/14/22 documented as of this encounter
--- OUTSIDE RECORDS SUMMARY | 2025-06-15 15:48 | XMS_ITS | Encounter Summary ---
Author Organization [facility] Address [address] [place] [address] Care Team Providers Care Pan Shaker Name Role Phone Michelle Norris MD Primary Care Provider Unavail able [facility], Pcp [facility] Michelle Lagos MD Primary Care Provider Unavail able Rosetta Diamond MD Primary Care Provider + Reason for Visit * Reason Onset Date Comments hospital follow up 08/29/2017 Encounter Details Date Type Department Care Team Description 08/29/2017 Telephone Adult Medicine [address] [address] Michelle Norris MD hospital follow up Social [...] appointment needed Hospital patient was treated at: [facility] Was this only an ER visit [...] on filedocumented in this encounter Care Teams Pan Shaker Relationship Specialty Start Date End Date Michelle Norris MD PCP - General Internal Medicine 03/05/17 03/16/21 [facility] PCP - General Internal Medicine 03/17/21 05/04/21 Michelle Norris MD PCP - General Internal Medicine 05/05/21 09/13/22 Rosetta Diamond MD [address] [place] [address] PCP - General Internal Medicine 09/14/22 documented as of this encounter
--- OUTSIDE RECORDS SUMMARY | 2025-06-15 15:48 | XMS_ITS | Encounter Summary ---
Author Organization [facility] Address [address] [place] [address] Care Team Providers Care Financial Aid Name Role Phone Nikki Alcantar MD Primary Care Provider [phone] Michelle Norris MD Primary Care Provider Unavail [facility] Primary Care Provider [facility] Michelle Norris MD Primary Care Provider Unavail [facility] Rosetta Diamond MD Primary Care Provider + Encounter Details Date Type Department Care Team Description 07/13/2009 Hospital Medical Records [address] [place] [address] Colon, Anabel Social History Tobacco Use Types [...] filedocumented in this encounter Care Teams Financial Aid Relationship Specialty Start Date End Date Nikki Alcantar MD [address] [place] [address]35 PCP - General 06/26/05 03/04/17 Michelle Norris MD [address] [place] [address] 16329 PCP - General Internal Medicine 03/05/17 03/16/21 [facility], Pcp [address] [place] [address] 62946 PCP - General Internal Medicine 03/17/21 05/04/21 Michelle Norris MD [address] [place] [address] 41205 PCP - General Internal Medicine 05/05/21 09/13/22 Rosetta Diamond MD [address] [place] [address] PCP - General Internal Medicine 09/14/22 documented as of this encounter
--- OUTSIDE RECORDS SUMMARY | 2025-06-15 15:48 | XMS_ITS | Encounter Summary ---
Author Organization [facility] Address [address] [place] [address] Care Team Providers Care Cloud Engineer Name Role Phone Nikki Alcantar MD Primary Care Provider [phone] Michelle Norris MD Primary Care Provider Unavail [facility] Primary Care Provider [facility] Michelle Norris MD Primary Care Provider Unavail [facility] Rosetta Diamond MD Primary Care Provider + Encounter Details Date Type Department Care Team Description 08/08/2013 Hospital Medical Records [address] [place] [address] Reena Dominguez Social History Tobacco Use Types [...] filedocumented in this encounter Care Teams Cloud Engineer Relationship Specialty Start Date End Date Nikki Alcantar MD [address] [place] [address] 13454 PCP - General 06/26/05 03/04/17 Michelle Norris MD [address] [place] [address] PCP - General Internal Medicine 03/05/17 03/16/21 [facility], Pcp [address] [place] [address] PCP - General Internal Medicine 03/17/21 05/04/21 Michelle Norrsi MD [address] [place] [address] [place] [address] PCP - General Internal Medicine 05/05/21 09/13/22 Rosetta Diamond MD [address] [place], [place] [phone] PCP - General Internal Medicine 09/14/22 documented as of this encounter
--- OUTSIDE RECORDS SUMMARY | 2025-06-15 15:48 | XMS_ITS | Encounter Summary ---
Author Organization [facility] Address [address] [place] [address] Care Team Providers Care Baller Tender Name Role Phone Nikki Alcantar MD Primary Care Provider [phone] Michelle Norris MD Primary Care Provider Unavail able [facility] Michelle Norris MD Primary Care Provider Unavail able Rosetta Diamond MD Primary Care Provider + Reason for Visit * Reason Onset Date Comments Call From Hospital 05/11/2016 Encounter Details Date Type Department Care Team Description 05/11/2016 Telephone Adult Medicine [address] [phone] Nikki Alcantar MD [address] [place] [address] [phone] Call From Hospital Social History Tobacco Use [...] DR. Alcantar patient has been admitted to [facility] as of 05/09/16 . documented in this encounter Plan of Treatment Not on file documented as of this encounter Visit Diagnoses Not on filedocumented in this encounter Care Teams Baller Tender Relationship Specialty Start Date End Date Nikki Alcantar MD [address] [place] [address] PCP - General 06/26/05 03/04/17 Michelle Norris MD [address] [place] [address]236 PCP - General Internal Medicine 03/05/17 03/16/21 [place] [phone] PCP - General Internal Medicine 03/17/21 05/04/21 Michelle Norris MD [address] [place] [address] PCP - General Internal Medicine 05/05/21 09/13/22 Rosetta Diamond MD [address] [place], [place] [phone] PCP - General Internal Medicine 09/14/22 documented as of this encounter
--- OUTSIDE RECORDS SUMMARY | 2025-06-15 15:48 | XMS_ITS | Encounter Summary ---
Author Organization [facility] Address [address] [place] [address] Care Team Providers Care Exchange Underwriting Consultant Name Role Phone Nikki Alcantar MD Primary Care Provider [phone] Michelle Norris MD Primary Care Provider Unavail [facility] Primary Care Provider [facility] Michelle Norris MD Primary Care Provider Unavail [facility] Rosetta Diamond MD Primary Care Provider + Encounter Details Date Type Department Care Team Description 10/05/2010 Hospital Medical Records [address] [place] [address] Ebony Pacheco Social History Tobacco Use Types [...] on filedocumented in this encounter Care Teams Exchange Underwriting Consultant Relationship Specialty Start Date End Date Nikki Alcantar MD [address] [place] [address] 45335 PCP - General 06/26/05 03/04/17 Michelle Norris MD [address] [place] [address] 32558 PCP - General Internal Medicine 03/05/17 03/16/21 [facility], Pcp [address] [place] [address] 68448 PCP - General Internal Medicine 03/17/21 05/04/21 Michelle Norris MD [address] [place] [address] 68536 PCP - General Internal Medicine 05/05/21 09/13/22 Rosetta Diamond MD [address] [place] [address] PCP - General Internal Medicine 09/14/22 documented as of this encounter
--- OUTSIDE RECORDS SUMMARY | 2025-06-15 15:48 | XMS_ITS | Encounter Summary ---
Author Organization [facility] Address [address] [place] [address] Care Team Providers Care Postal Service Window Clerk Name Role Phone Michelle Norris MD Primary Care Provider Unavail able Rosetta Diamond MD Primary Care Provider + Encounter Details Date Type Department Care Team Description 06/15/2022 Business Doc Medical Records [address] [place] [phone] Abstract, Provider Social History Tobacco Use Types [...] on filedocumented in this encounter Care Teams Postal Service Window Clerk Relationship Specialty Start Date End Date Michelle Norris MD PCP - General Internal Medicine 05/05/21 09/13/22 Rosetta Diamond MD [address] [place] [address] [phone] PCP - General Internal Medicine 09/14/22 documented as of this encounter
--- OUTSIDE RECORDS SUMMARY | 2025-06-15 15:48 | XMS_ITS | Encounter Summary ---
Author Organization [facility] Address [address] [place] [address] Care Team Providers Care Psychological Aide Name Role Phone Nikki Alcantar MD Primary Care Provider [phone] Michelle Norris MD Primary Care Provider Unavail [facility] Primary Care Provider [facility] Michelle Norris MD Primary Care Provider Unavail [facility] Rosetta Diamond MD Primary Care Provider + Encounter Details Date Type Department Care Team Description 06/06/2016 Hospital Medical Records [address] [place] [address] Sourav Lucas Social History Tobacco Use Types [...] on filedocumented in this encounter Care Teams Psychological Aide Relationship Specialty Start Date End Date Nikki Alcantar MD [address] [place] [address] 13796 PCP - General 06/26/05 03/04/17 Michelle Norris MD [address] [place] [address] PCP - General Internal Medicine 03/05/17 03/16/21 [facility], Pcp [address] [place] [address] PCP - General Internal Medicine 03/17/21 05/04/21 Michelle Norris MD [address] [place] [address] [place] [address] PCP - General Internal Medicine 05/05/21 09/13/22 Rosetta Diamond MD [address] [place], [place] [phone] PCP - General Internal Medicine 09/14/22 documented as of this encounter
--- OUTSIDE RECORDS SUMMARY | 2025-06-15 15:48 | XMS_ITS | Encounter Summary ---
Author Organization [facility] Address [address] [place] [address] Care Team Providers Care Remote Encoding Center Manager Name Role Phone Nikki Alcantar MD Primary Care Provider Michelle Norris MD Primary Care Provider Unavail able [facility] Michelle Norris MD Primary Care Provider Unavail able Rosetta Diamond MD Primary Care Provider + Reason for Visit * Reason Onset Date Comments APPOINTMENT 04/14/2011 MISSED APPOINTME NT 04/14/11 Encounter Details Date Type Department Care Team Description 04/14/2011 Telephone Adult Medicine [address] [phone] Nikki Alcantar MD [address] [place] [address] [phone] APPOINTMENT (MISSED APPOINTMENT 04/14/11) Social History Tobacco [...] filedocumented in this encounter Care Teams Remote Encoding Center Manager Relationship Specialty Start Date End Date Nikki Alcantar MD [address] [place] [address] PCP - General 06/26/05 03/04/17 Michelle Norris MD [address] [place], [place] [phone] PCP - General Internal Medicine 03/05/17 03/16/21 [place] [phone] PCP - General Internal Medicine 03/17/21 05/04/21 Michelle Norris MD [address] [place] [address] PCP - General Internal Medicine 05/05/21 09/13/22 Rosetta Diamond MD [address] [place], [place] [phone] PCP - General Internal Medicine 09/14/22 documented as of this encounter
--- OUTSIDE RECORDS SUMMARY | 2025-06-15 15:48 | XMS_ITS | Encounter Summary ---
Author Organization [facility] Address [address] [place] [address] Care Team Providers Care Associate Professor Of Theatre Name Role Phone Michelle Norris MD Primary Care Provider Unavail able Rosetta Diamond MD Primary Care Provider + Encounter Details Date Type Department Care Team Description 05/17/2021 Hospital Medical Records [address] [place] [address] Robby Bazan Social History Tobacco Use Types [...] this encounter Care Teams Associate Professor Of Theatre Relationship Specialty Start Date End Date Michelle Norris MD PCP - General Internal Medicine 05/05/21 09/13/22 Rosetta Diamond MD [address] [place] [address] PCP - General Internal Medicine 09/14/22 documented as of this encounter
--- OUTSIDE RECORDS SUMMARY | 2025-06-15 15:48 | XMS_ITS | Encounter Summary ---
Author Organization [facility] Address [address] [place] [address] Care Team Providers Care Engineering Director Name Role Phone Nikki Alcantar MD Primary Care Provider Michelle Norris MD Primary Care Provider Unavail [facility] Primary Care Provider [facility] Michelle Norris MD Primary Care Provider Unavail [facility] Rosetta Diamond MD Primary Care Provider + Encounter Details Date Type Department Care Team Description 07/06/2013 Hospital Medical Records [address] [place] [phone] Stefan Sanford MD Social History Tobacco Use [...] on filedocumented in this encounter Care Teams Engineering Director Relationship Specialty Start Date End Date Nikki Alcantar MD [address] [place] [address] 52460 PCP - General 06/26/05 03/04/17 Michelle Norris MD [address] [place] [address] 80632 PCP - General Internal Medicine 03/05/17 03/16/21 [facility], Pcp [address] [place] [address] 49835 PCP - General Internal Medicine 03/17/21 05/04/21 Michelle Norris MD [address] [place] [address] 42176 PCP - General Internal Medicine 05/05/21 09/13/22 Rosetta Diamond MD [address] [place] [address] PCP - General Internal Medicine 09/14/22 documented as of this encounter
--- OUTSIDE RECORDS SUMMARY | 2025-06-15 15:49 | XMS_ITS | Encounter Summary ---
Author Organization [facility] Address [address] [place] [address] Care Team Providers Care Land Clearer Name Role Phone Nikki Kumar MD Primary Care Provider [phone] Michelle Norris MD Primary Care Provider Unavail [facility] Primary [facility] Michelle Norris MD Primary Care Provider Unavail able Rosetta Diamond MD Primary Care Provider + Reason for Visit * Reason Onset Date Comments Faxed Order 09/22/2016 Encounter Details Date Type Department Care Team Description 09/22/2016 Telephone Adult Medicine [address] [phone] Nikki Kumar MD [address] [place] [address] [phone] Faxed Order Social History Tobacco Use Types [...] on filedocumented in this encounter Care Teams Land Clearer Relationship Specialty Start Date End Date Nikki Kumar MD [address] [place] [address] PCP - General 06/26/05 03/04/17 Michelle Norris MD [address] [place] [address] 12369 PCP - General Internal Medicine 03/05/17 03/16/21 [place] [address] PCP - General Internal Medicine 03/17/21 05/04/21 Michelle Norris MD [address] [place] [address] 87291 PCP - General Internal Medicine 05/05/21 09/13/22 Rosetta Diamond MD [address] [place] [address] PCP - General Internal Medicine 09/14/22 documented as of this encounter
--- OUTSIDE RECORDS SUMMARY | 2025-06-15 15:49 | XMS_ITS | Encounter Summary ---
Author Organization [facility] Address [address] [place] [address] Care Team Providers Care Apple Solutions Consultant Name Role Phone Michelle Norris MD Primary Care Provider Unavail able [facility], Pcp Primary [facility] Michelle Norris MD Primary Care Provider Unavail able Rosetta Diamond MD Primary Care Provider + Encounter Details Date Type Department Care Team Description 03/08/2017 Hospital Medical Records [address] [place] [address] Sourav Lucas Social History Tobacco Use Types [...] on filedocumented in this encounter Care Teams Apple Solutions Consultant Relationship Specialty Start Date End Date Michelle Norris MD PCP - General Internal Medicine 03/05/17 03/16/21 [facility], Pcp PCP - General Internal Medicine 03/17/21 05/04/21 Michelle Norris MD PCP - General Internal Medicine 05/05/21 09/13/22 Rosetta Diamond MD [address] [place] [address] PCP - General Internal Medicine 09/14/22 documented as of this encounter
--- OUTSIDE RECORDS SUMMARY | 2025-06-15 15:49 | XMS_ITS | Encounter Summary ---
Author Organization [facility] Address [address] [place] [address] Care Team Providers Care Tank Carpenter Name Role Phone Nikki Alcantar MD Primary Care Provider [phone] Michelle Norris MD Primary Care Provider Unavail [facility] Primary Care Provider [facility] Michelle Norris MD Primary Care Provider Unavail [facility] Rosetta Diamond MD Primary Care Provider + Encounter Details Date Type Department Care Team Description 11/28/2012 Press Pipe Inspector Report Medical Records [address] [place] [address] Julio Paredes MD Social History Tobacco Use [...] filedocumented in this encounter Care Teams Tank Carpenter Relationship Specialty Start Date End Date Nikki Alcantar MD [address] [place] [address] PCP - General 06/26/05 03/04/17 Michelle Norris MD [address] [place] [address] PCP - General Internal Medicine 03/05/17 03/16/21 [facility], Pcp [address] [place] [address] PCP - General Internal Medicine 03/17/21 05/04/21 Michelle Norris MD [address] [place] [address] [place] [address] PCP - General Internal Medicine 05/05/21 09/13/22 Rosetta Diamond MD [address] [place], [place] [phone] PCP - General Internal Medicine 09/14/22 documented as of this encounter
--- OUTSIDE RECORDS SUMMARY | 2025-06-15 15:49 | XMS_ITS | Encounter Summary ---
Author Organization [facility] Address [address] [place] [address] Care Team Providers Care Per Diem Rn Name Role Phone Maribel Marquez Primary Care Provider [phone] Encounter Details Date Type Department Care Team (Late st Contact Info) Description 05/25/2025 Lab Requisition [facility] - Main Lab [address] [facility] [place] [address] Wanda Cleveland NP [address] [place] [phone] Other skilled nursing (current) drug therapy Social History Tobacco Use Types Packs/Day Years [...] PM EST documented as of this encounter Functional Status * Are you [...] Henrietta Ness RN documented in this encounter Plan of Treatment Not on file documented as of this encounter Visit Diagnoses Diagnosis Other skilled nursing (current) drug therapy documented in this encounter Care Teams Per Diem Rn Relationship Specialty Start Date End Date Maribel Marquez [address] [place] [address] PCP - General 09/08/24 documented as of this encounter
--- OUTSIDE RECORDS SUMMARY | 2025-06-15 15:49 | XMS_ITS | Encounter Summary ---
Author Organization [facility] Address [address] [place] [address] Care Team Providers Care Can Dragger Name Role Phone Michelle Norris MD Primary Care Provider Unavail able [facility] Michelle Lagos MD Primary Care Provider Unavail able Rosetta Diamond MD Primary Care Provider + Reason for Visit * Reason Onset Date Comments refill request 11/12/2019 Encounter Details Date Type Department Care Team Description 11/12/2019 Refill Adult Medicine [address] [address] Michelle Norris MD refill request Social History [...] insurance carrier is: [place] / Plan: [place]ARE-RelateIQ / Product Type: MEDICARE [id number] documented in this encounter Plan of Treatment Not on file documented as of this encounter Visit Diagnoses Not on filedocumented in this encounter Care Teams Can Dragger Relationship Specialty Start Date End Date Michelle Norris MD PCP - General Internal Medicine 03/05/17 03/16/21 [facility] PCP - General Internal Medicine 03/17/21 05/04/21 Michelle Norris MD PCP - General Internal Medicine 05/05/21 09/13/22 Rosetta Diamond MD [address] [place] [address] PCP - General Internal Medicine 09/14/22 documented as of this encounter
--- OUTSIDE RECORDS SUMMARY | 2025-06-15 15:49 | XMS_ITS | Encounter Summary ---
Author Organization [facility] Address [address] [place] [address] Care Team Providers Care Pilot Boat Deckhand Name Role Phone Nikki Alcantar MD Primary Care Provider [phone] Michelle Norris MD Primary Care Provider Unavail [facility] Primary Care Provider [facility] Michelle Norris MD Primary Care Provider Unavail [facility] Rosetta Diamond MD Primary Care Provider + Encounter Details Date Type Department Care Team Description 09/06/2016 Home Health Certification Medical Records [address] [place] [address] Social History Tobacco Use Types Packs/Day Years [...] on filedocumented in this encounter Care Teams Pilot Boat Deckhand Relationship Specialty Start Date End Date Nikki Alcantar MD [address] [place] [address] PCP - General 06/26/05 03/04/17 Michelle Norris MD [address] [place] [address] PCP - General Internal Medicine 03/05/17 03/16/21 [facility], Pcp [address] [place] [address] PCP - General Internal Medicine 03/17/21 05/04/21 Michelle Norris MD [address] [place] [address] PCP - General Internal Medicine 05/05/21 09/13/22 Rosetta Diamond MD [address] [place], [place] [phone] PCP - General Internal Medicine 09/14/22 documented as of this encounter
--- OUTSIDE RECORDS SUMMARY | 2025-06-15 15:49 | XMS_ITS | Encounter Summary ---
Author Organization [facility] Address [address] [place] [address] Care Team Providers Care Dental Office Assistant Name Role Phone Nikki Alcantar MD Primary Care Provider [phone] Michelle Norris MD Primary Care Provider Unavail [facility] Primary Care Provider [facility] Michelle Norris MD Primary Care Provider [facility]avail [facility] Rosetta Diamond MD Primary Care Provider + Encounter Details Date Type Department Care Team Description 06/25/2013 Hospital Medical Records [address] [place] [address] Miles Sahh MD Social History Tobacco Use Types Packs/Day [...] filedocumented in this encounter Care Teams Dental Office Assistant Relationship Specialty Start Date End Date Nikki Alcantar MD [address] [place] [address] PCP - General 06/26/05 03/04/17 Michelle Norris MD [address] [place] [address] PCP - General Internal Medicine 03/05/17 03/16/21 [facility], Pcp [address] [place] [address] PCP - General Internal Medicine 03/17/21 05/04/21 Michelle Norris MD [address] [place] [address] PCP - General Internal Medicine 05/05/21 09/13/22 Rosetta Diamond MD [address] [place] [address] PCP - General Internal Medicine 09/14/22 documented as of this encounter
--- OUTSIDE RECORDS SUMMARY | 2025-06-15 15:49 | XMS_ITS | Encounter Summary ---
Author Organization [facility] Address [address] [place] [address] Care Team Providers Care Investment Banking Associate Name Role Phone Nikki Alcantar MD Primary Care Provider [phone] Michelle Norris MD Primary Care Provider Unavail [facility] Primary Care Provider [facility] Michelle Norris MD Primary Care Provider Unavail [facility] Rosetta Diamond MD Primary Care Provider + Encounter Details Date Type Department Care Team Description 12/21/2012 Hospital Medical Records [address] [place] [address] Estonian, Kathy, DO Social History Tobacco Use Types [...] on filedocumented in this encounter Care Teams Investment Banking Associate Relationship Specialty Start Date End Date Nikki Alcantar MD [address] [place] [address] PCP - General 06/26/05 03/04/17 Michelle Norris MD [address] [place] [address] PCP - General Internal Medicine 03/05/17 03/16/21 [facility], Pcp [address] [place] [address] PCP - General Internal Medicine 03/17/21 05/04/21 Michelle Norris MD [address] [place] [address] PCP - General Internal Medicine 05/05/21 09/13/22 Rosetta Diamond MD [address] [place] [address] PCP - General Internal Medicine 09/14/22 documented as of this encounter
--- OUTSIDE RECORDS SUMMARY | 2025-06-15 15:49 | XMS_ITS | Encounter Summary ---
Author Organization [facility] Address [address] [place] [address] Care Team Providers Care Blow Torch Operator Name Role Phone Nikki Alcantar MD Primary Care Provider [phone] Michelle Norris MD Primary Care Provider Unavail [facility] Primary Care Provider [facility] Michelle Norris MD Primary Care Provider Unavail [facility] Rosetta Diamond MD Primary Care Provider + Encounter Details Date Type Department Care Team Description 03/04/2013 Night Triage Doc Medical Records [address] [place] [address] Abstract, Provider Social History Tobacco Use Types [...] on filedocumented in this encounter Care Teams Blow Torch Operator Relationship Specialty Start Date End Date Nikki Alcantar MD [address] [place] [address] PCP - General 06/26/05 03/04/17 Michelle Norris MD [address] [place] [address] PCP - General Internal Medicine 03/05/17 03/16/21 [facility], Pcp [address] [place] [address] PCP - General Internal Medicine 03/17/21 05/04/21 Michelle Norris MD [address] [place] [address] [place] [address] PCP - General Internal Medicine 05/05/21 09/13/22 Rosetta Diamond MD [address] [place], [place] [phone] PCP - General Internal Medicine 09/14/22 documented as of this encounter
--- OUTSIDE RECORDS SUMMARY | 2025-06-15 15:49 | XMS_ITS | Encounter Summary ---
Author Organization [facility] Address [address] [place] [address] Care Team Providers Care Qa Reviewer Name Role Phone Nikki Alcantar MD Primary Care Provider [phone] Michelle Norris MD Primary Care Provider Unavail [facility] Primary Care Provider [facility] Michelle Norris MD Primary Care Provider [facility] Rosetta Diamond MD Primary Care Provider + Encounter Details Date Type Department Care Team Description 01/19/2017 Business Doc Medical Records [address] [place] [address] Abstract, Provider Social History Tobacco Use Types [...] filedocumented in this encounter Care Teams Qa Reviewer Relationship Specialty Start Date End Date Nikki Alcantar MD [address] [place] [address] PCP - General 06/26/05 03/04/17 Michelle Norris MD [address] [place] [address] PCP - General Internal Medicine 03/05/17 03/16/21 [facility], Pcp [address] [place] [address] PCP - General Internal Medicine 03/17/21 05/04/21 Michelle Norris MD [address] [place] [address] [place] [address] PCP - General Internal Medicine 05/05/21 09/13/22 Rosetta Diamond MD [address] [place], [place] [phone] PCP - General Internal Medicine 09/14/22 documented as of this encounter
--- OUTSIDE RECORDS SUMMARY | 2025-06-15 15:49 | XMS_ITS | Encounter Summary ---
Author Organization [facility] Address [address] [place] [address] Care Team Providers Care Food Scientist Name Role Phone Nikki Alcantar MD Primary Care Provider [phone] Michelle Norris MD Primary Care Provider Unavail able [facility] Primary Care Provider [facility] Michelle Norris MD Primary Care Provider Unavail able Rosetta Diamond MD Primary Care Provider + Reason for Visit * Reason Onset Date Comments Error 09/11/2016 Encounter Details Date Type Department Care Team Description 09/11/2016 Telephone Adult Medicine [address] [phone] Nikki Alcantar MD [address] [place] [address] [phone] Error Social History Tobacco Use Types Packs/Day [...] on filedocumented in this encounter Care Teams Food Scientist Relationship Specialty Start Date End Date Nikki Alcantar MD [address] [place] [address] PCP - General 06/26/05 03/04/17 Michelle Norris MD [address] [place] [address] PCP - General Internal Medicine 03/05/17 03/16/21 [facility], [place] [address] PCP - General Internal Medicine 03/17/21 05/04/21 Michelle Norris MD [address] [place] [address] PCP - General Internal Medicine 05/05/21 09/13/22 Rosetta Diamond MD [address] [place] [address] PCP - General Internal Medicine 09/14/22 documented as of this encounter
--- OUTSIDE RECORDS SUMMARY | 2025-06-15 15:49 | XMS_ITS | Encounter Summary ---
Author Organization [facility] Address [address] [place] [address] Care Team Providers Care Batch Plant Operator Name Role Phone Michelle Norris MD Primary Care Provider Unavail able [facility], Pcp Primary Care Provider Unavailabl Michelle Lagos MD Primary Care Provider Unavail able Rosetta Diamond MD Primary Care Provider + Reason for Visit * Reason Onset Date Comments Medication 12/16/2019 Colonoscopy Encounter Details Date Type Department Care Team Description 12/16/2019 Refill Gastroenterology - [address] [place] [phone] Reese Powers MD Medication (Colonoscopy) Social History [...] filedocumented in this encounter Care Teams Batch Plant Operator Relationship Specialty Start Date End Date Michelle Norris MD PCP - General Internal Medicine 03/05/17 03/16/21 [facility], [facility] PCP - General Internal Medicine 03/17/21 05/04/21 Michelle Norris MD PCP - General Internal Medicine 05/05/21 09/13/22 Rosetta Diamond MD [address] [place] [address] PCP - General Internal Medicine 09/14/22 documented as of this encounter
--- OUTSIDE RECORDS SUMMARY | 2025-06-15 15:49 | XMS_ITS | Encounter Summary ---
Author Organization [facility] Address [address] [place] [address] Care Team Providers Care Trademark Affixer Name Role Phone Nikki Alcantar MD Primary Care Provider [phone] Michelle Norris MD Primary Care Provider Unavail [facility] Primary Care Provider [facility] Michelle Norris MD Primary Care Provider Unavail [facility] Rosetta Diamond MD Primary Care Provider + Encounter Details Date Type Department Care Team Description 05/07/2009 Hospital Medical Records [address] [place] [address] Rosana Gonzalez MD Social History Tobacco Use [...] on filedocumented in this encounter Care Teams Trademark Affixer Relationship Specialty Start Date End Date Nikki Alcantar MD [address] [place] [address] PCP - General 06/26/05 03/04/17 Michelle Norris MD [address] [place] [address] PCP - General Internal Medicine 03/05/17 03/16/21 [facility], Pcp [address] [place] [address] PCP - General Internal Medicine 03/17/21 05/04/21 Michelle Norris MD [address] [place] [address] [place] [address] PCP - General Internal Medicine 05/05/21 09/13/22 Rosetta Diamond MD [address] [place], [place] [phone] PCP - General Internal Medicine 09/14/22 documented as of this encounter
--- OUTSIDE RECORDS SUMMARY | 2025-06-15 15:49 | XMS_ITS | Encounter Summary ---
Author Organization [facility] Address [address] [place] [address] Care Team Providers Care Artificial Intelligence Specialist Name Role Phone Nikki Alcantar MD Primary Care Provider [phone] Michelle Norris MD Primary Care Provider Unavail able [facility] Michelle Norris MD Primary Care Provider Unavail able Rosetta Diamond MD Primary Care Provider + Reason for Visit * Reason Onset Date Comments refill request 01/25/2017 Encounter Details Date Type Department Care Team Description 01/25/2017 Refill Adult Medicine [address] [id number] Nikki Alcantar MD [address] [place] [address] [phone] refill request Social History Tobacco Use Types [...] / Plan[place] / Product Type: MEDICARE [id number] documented in this encounter Plan of Treatment Not on file documented as of this encounter Visit Diagnoses Not on filedocumented in this encounter Care Teams Artificial Intelligence Specialist Relationship Specialty Start Date End Date Nikki Alcantar MD [address] [place] [address] PCP - General 06/26/05 03/04/17 Michelle Norris MD [address] [place] [address] PCP - General Internal Medicine 03/05/17 03/16/21 [place] [address] PCP - General Internal Medicine 03/17/21 05/04/21 Michelle Norris MD [address] [place] [address] PCP - General Internal Medicine 05/05/21 09/13/22 Rosetta Diamond MD [address] [place] [address] PCP - General Internal Medicine 09/14/22 documented as of this encounter
--- OUTSIDE RECORDS SUMMARY | 2025-06-15 15:49 | XMS_ITS | Encounter Summary ---
Author Organization [facility] Address [address] [place] [address] Care Team Providers Care Artist Manager Name Role Phone Nikki Alcantar MD Primary Care Provider [phone] Michelle Norris MD Primary Care Provider Unavail [facility] Primary Care Provider [facility] Michelle Norris MD Primary Care Provider Unavail [facility] Rosetta Diamond MD Primary Care Provider + Encounter Details Date Type Department Care Team Description 05/22/2009 Hospital Medical Records [address] [place] [address] Shelly Espana MD Social History Tobacco Use [...] on filedocumented in this encounter Care Teams Artist Manager Relationship Specialty Start Date End Date Nikki Alcantar MD [address] [place] [address] PCP - General 06/26/05 03/04/17 Michelle Norris MD [address] [place] [address] PCP - General Internal Medicine 03/05/17 03/16/21 [facility], Pcp [address] [place] [address] PCP - General Internal Medicine 03/17/21 05/04/21 Michelle Norris MD [address] [place] [address] [place] [address] PCP - General Internal Medicine 05/05/21 09/13/22 Rosetta Diamond MD [address] [place], [place] [phone] PCP - General Internal Medicine 09/14/22 documented as of this encounter
--- OUTSIDE RECORDS SUMMARY | 2025-06-15 15:49 | XMS_ITS | Encounter Summary ---
Author Organization [facility] Address [address] [place] [address] Care Team Providers Care Tank Furnace Operator Name Role Phone Nikki Alcantar MD Primary Care Provider [phone] Michelle Norris MD Primary Care Provider Unavail [facility] Primary Care Provider [facility] Michelle Norris MD Primary Care Provider Unavail [facility] Rosetta Diamond MD Primary Care Provider + Encounter Details Date Type Department Care Team Description 11/14/2016 Hospital Medical Records [address] [place] [address] Marlen Grande Social History Tobacco Use Types [...] filedocumented in this encounter Care Teams Tank Furnace Operator Relationship Specialty Start Date End Date Nikki Alcantar MD [address] [place] [address] PCP - General 06/26/05 03/04/17 Michelle Norris MD [address] [place] [address] PCP - General Internal Medicine 03/05/17 03/16/21 [facility], Pcp [address] [place] [address] PCP - General Internal Medicine 03/17/21 05/04/21 Michelle Norris MD [address] [place] [address] PCP - General Internal Medicine 05/05/21 09/13/22 Rosetta Diamond MD [address] [place] [address] PCP - General Internal Medicine 09/14/22 documented as of this encounter
--- OUTSIDE RECORDS SUMMARY | 2025-06-15 15:49 | XMS_ITS | Encounter Summary ---
Author Organization [facility] Address [address] [place] [address] Care Team Providers Care Criminal Justice Instructor Name Role Phone Nikki Alcantar MD Primary Care Provider [phone] Michelle Norris MD Primary Care Provider Unavail [facility] Primary Care Provider [facility] Michelle Norris MD Primary Care Provider Unavail [facility] Rosetta Diamond MD Primary Care Provider + Encounter Details Date Type Department Care Team Description 01/22/2013 Night Triage Doc Medical Records [address] [place] [phone] Abstract, Provider Social History Tobacco Use Types [...] filedocumented in this encounter Care Teams Criminal Justice Instructor Relationship Specialty Start Date End Date Nikki Alcantar MD [address] [place] [address] PCP - General 06/26/05 03/04/17 Michelle Norris MD [address] [place] [address] PCP - General Internal Medicine 03/05/17 03/16/21 [facility], Pcp [address] [place] [address] PCP - General Internal Medicine 03/17/21 05/04/21 Michelle Norris MD [address] [place], [place] [phone] PCP - General Internal Medicine 05/05/21 09/13/22 Rosetta Diamond MD [address] [place] [address] PCP - General Internal Medicine 09/14/22 documented as of this encounter
--- OUTSIDE RECORDS SUMMARY | 2025-06-15 15:49 | XMS_ITS | Encounter Summary ---
Author Organization [facility] Address [address] [place] [address] Care Team Providers Care Cloak Room Attendant Name Role Phone Nikki Alcantar MD Primary Care Provider [phone] Michelle Norris MD Primary Care Provider Unavail [facility] Primary Care Provider [facility] Michelle Norris MD Primary Care Provider Unavail [facility] Rosetta Diamond MD Primary Care Provider + Encounter Details Date Type Department Care Team Description 11/11/2016 Hospital Medical Records [address] [place] [address] Eileen Landrumelizabeth Social History Tobacco Use Types [...] on filedocumented in this encounter Care Teams Cloak Room Attendant Relationship Specialty Start Date End Date Nikki Alcantar MD [address] [place] [address] PCP - General 06/26/05 03/04/17 Michelle Norris MD [address] [place] [address] PCP - General Internal Medicine 03/05/17 03/16/21 [facility], Pcp [address] [place] [address] PCP - General Internal Medicine 03/17/21 05/04/21 Michelle Norris MD [address] [place] [address] [place] [address] PCP - General Internal Medicine 05/05/21 09/13/22 Rosetta Diamond MD [address] [place], [place] [phone] PCP - General Internal Medicine 09/14/22 documented as of this encounter
--- OUTSIDE RECORDS SUMMARY | 2025-06-15 15:49 | XMS_ITS | Encounter Summary ---
Author Organization [facility] Address [address] [place] [address] Care Team Providers Care Burning Machine Operator Name Role Phone Nikki Alcantar MD Primary Care Provider [phone] Michelle Norris MD Primary Care Provider Unavail able [facility] Primary Care Provider [facility] Michelle Norris MD Primary Care Provider Unavail able Rosetta Diamond MD Primary Care Provider + Reason for Visit * Reason Onset Date Comments VNA Call 11/24/2016 Encounter Details Date Type Department Care Team Description 11/24/2016 Telephone Adult Medicine [address] [id number] Nikki Alcantar MD [address] [place] [address] [phone] VNA Call Social History Tobacco Use Types [...] name of caller: Ros The caller is Polisher Hand Is the caller at the patients home?: [...] on filedocumented in this encounter Care Teams Burning Machine Operator Relationship Specialty Start Date End Date Nikki Alcantar MD [address] [place] [address] PCP - General 06/26/05 03/04/17 Michelle Norris MD [address] [place] [id number] PCP - General Internal Medicine 03/05/17 03/16/21 [facility], [place] [address] PCP - General Internal Medicine 03/17/21 05/04/21 Michelle Norris MD [address] [place] [id number] PCP - General Internal Medicine 05/05/21 09/13/22 Rosetta Diamond MD [address] [place] [address] PCP - General Internal Medicine 09/14/22 documented as of this encounter
--- OUTSIDE RECORDS SUMMARY | 2025-06-15 15:49 | XMS_ITS | Encounter Summary ---
Author Organization [facility] Address [address] [place] [address] Care Team Providers Care Home Health Physical Therapist Name Role Phone Nikki Kumar MD Primary Care Provider [phone] Michelle Norris MD Primary Care Provider Unavail [facility] Primary Care Provider [facility] Michelle Norris MD Primary Care Provider Unavail able Rosetta Diamond MD Primary Care Provider + Reason for Visit * Reason Onset Date Comments Faxed Order 10/18/2016 Encounter Details Date Type Department Care Team Description 10/18/2016 Telephone Adult Medicine [address] [id number] Nikki Kumar MD [address] [place] [address] [phone] Faxed Order Social History Tobacco Use Types [...] on filedocumented in this encounter Care Teams Home Health Physical Therapist Relationship Specialty Start Date End Date Nikki Kumar MD [address] [place] [address] PCP - General 06/26/05 03/04/17 Michelle Norris MD [address] [place] [id number] PCP - General Internal Medicine 03/05/17 03/16/21 [place] [address] PCP - General Internal Medicine 03/17/21 05/04/21 Michelle Norris MD [address] [place] [id number] PCP - General Internal Medicine 05/05/21 09/13/22 Rosetta Diamond MD [address] [place] [address] PCP - General Internal Medicine 09/14/22 documented as of this encounter
[2025-06-15 16:09] LABS: MANUAL DIFF FLAG NO
[2025-06-15 16:10] LABS: Hematocrit 36.5 % (37.0-47.0); Hemoglobin 12.7 g/dl (12.0-16.0); Imm Gran Abs Auto 0.07 X10*3/uL (0.00-0.03); Imm Gran Pct Auto 0.7 % (0.0-0.4); Lymphocytes Absolute Auto 1.4 X10*3/uL (1.2-4.9); Mean Corpuscular HGB Conc 34.8 g/dl (31.0-35.0); Mean Corpuscular Hemoglobin 31.4 pg (27.0-33.0); Mean Corpuscular Volume 90.3 fL (80.0-98.0); NRBC Abs Auto 0.000 X10*3/uL (0.0-0.012); NRBC Pct Auto 0.0 /100WBC (0.0-0.2); Platelet Count 329 X10*3/uL (160-400); Red Blood Count 4.04 X10*6/uL (4.20-5.50); White Blood Count 10.0 X10*3/uL (4.8-10.8)
[2025-06-15 16:14] LABS: Appearance Urine Clear; Glucose Urine UA Negative (Negative); PH 5.5 (5.0-9.0); Specific Gravity - Urine <= 1.005 (1.005-1.025)
[2025-06-15 16:21] LABS: Cannabinoid Screen Urine Not Detected (Not Detect)
[2025-06-15 16:30] VITALS: BP 133/96; PULSE 114; RESP 18; TEMP 36.6; O2SAT 95
[2025-06-15 16:30] LABS: Alanine Aminotransferase 29 U/L (0-31); Albumin Level 4.6 g/dL (3.5-5.0); Alkaline Phosphatase 157 U/L (39-117); Anion Gap 14 (12-20); Aspartate Amino Transferase 26 U/L (5-31); Blood Urea Nitrogen 6 mg/dL (9-16); Calcium 8.8 mg/dL (8.4-10.2); Carbon Dioxide 24 mmol/L (22-29); Chloride 104 mmol/L (96-108); Creatinine Clr Calc Pharmacy 131.5; Estimated Glomerular Filt Rate > 60; Potassium 3.4 mmol/L (3.3-5.1); Sodium 139 mmol/L (135-145); Total Protein 7.2 g/dL (6.5-8.0)
[2025-06-15 16:31] LABS: Acetaminophen LAB < 3 mcg/mL (<30)
--- NOTE | 2025-06-15 18:05 | PC.NURSE ---
patient a&ox3, rr equal/non labored, stating she is seeing her father who is speaking to her to hurt herself, denies HI. 1:1 sitter at bedside, labs drawn, urine obtained, pt currently denying pain/discomfort, eating dinner, awaiting provider evaluation.
[2025-06-15 18:06] VITALS: PULSE 112
--- NOTE | 2025-06-15 18:09 | ED.PSYCH ---
HPI - Psych General Chief Complaint: Psychiatric Symptoms Stated Complaint: hearing voices, trying to cut herself Time Seen by Provider: 06/15/25 16:04 Source: patient and EMS Mode of arrival: EMS Limitations: no limitations History of Present Illness ED Provider: Dr. Eileen Ryan HPI Narrative: Patient comes to the emergency room complaining of auditory hallucinations and superficial cuts. According to the patient, voices are telling her to cut herself. Patient denies HI. Patient states that she has vague HI thoughts. Patient states that she almost went to the pharmacy to get Tylenol to overdose. Related Data Home Medications ?Medication ?Instructions ?Recorded ?Confirmed albuterol sulfate 90 mcg/actuation 2 puff inhalation Q6H PRN Wheezing 06/24/24 06/07/25 aerosol inhaler clozapine 100 mg tablet 200 mg PO BEDTIME 06/24/24 06/07/25 fluoxetine 40 mg capsule 80 mg PO DAILY 06/24/24 06/07/25 prazosin 2 mg capsule 4 mg PO BEDTIME 06/24/24 06/07/25 metformin 500 mg tablet 500 mg PO BID 07/15/24 06/07/25 haloperidol 5 mg tablet 5 mg PO BID@0900,1600 01/10/25 06/07/25 atorvastatin 10 mg tablet 10 mg PO DAILY 05/23/25 06/07/25 docusate sodium 100 mg capsule 100 mg PO BID 05/23/25 06/07/25 ferrous sulfate 325 mg (65 mg 325 mg PO BID 05/23/25 06/07/25 iron) tablet fluticasone fur. 200 mcg-umeclid 1 ea inhalation DAILY 05/23/25 06/07/25 62.5 mcg-vilant 25 mcg inhalat.powder (Trelegy Ellipta) glycopyrrolate 1 mg tablet 1 mg PO BID 05/23/25 06/07/25 ibuprofen 600 mg tablet 600 mg PO Q6H PRN Mild Pain (Scale 05/23/25 06/07/25 Score 1-4) lorazepam 0.5 mg tablet 0.5 mg PO BID 05/23/25 06/07/25 mirtazapine 15 mg tablet 15 mg PO BEDTIME 05/23/25 06/07/25 montelukast 10 mg tablet 10 mg PO DAILY 05/23/25 06/07/25 ciprofloxacin HCl 250 mg tablet 250 mg PO BID 06/07/25 06/07/25 Previous Rx's ?Medication ?Instructions ?Recorded amlodipine 2.5 mg tablet 7.5 mg PO DAILY 30 days #90 tabs 06/01/25 haloperidol 5 mg tablet 15 mg (3 x 5 mg) PO BEDTIME 30 06/01/25 days #90 tabs hydrochlorothiazide 12.5 mg tablet 12.5 mg PO DAILY 30 days #30 tabs 06/01/25 nystatin 100,000 unit/gram topical 1 appl topical BID 30 days #30 06/01/25 cream grams Allergies Allergy/AdvReac Type Severity Reaction Status Date / Time azithromycin (AZITHROMYCIN) Allergy Severe Rash Verified 06/15/25 15:40 Fish Containing Products Allergy Severe Anaphylaxis Verified 06/15/25 15:40 codeine (Codeine) Allergy Intermediate Rash Verified 06/15/25 15:40 Penicillins Allergy Intermediate Rash Verified 06/15/25 15:40 prednisone (Prednisone) Allergy Intermediate Rash Verified 06/15/25 15:40 Sulfa (Sulfonamide Allergy Intermediate Rash Verified 06/15/25 15:40 Antibiotics) (Sulfa (Sulfonamides)) ziprasidone (From Geodon) Allergy Intermediate dysuria, Verified 06/15/25 15:40 rash lithium Allergy Unknown Rash Verified 06/15/25 15:40 Review of Systems Review of Systems: Constitutional : No Weight loss, No Fever, No Chills, No Night Sweats, No Fatigue, No Malaise ENT/Mouth : No Hearing loss, No Ear Pain, No Nasal Congestion, No Sinus Pain, No Hoarseness, No sore throat, No Rhinorrhea, No Swallowing Difficulty Eyes: No Eye Pain, No Swelling, No Redness, No Foreign Body, No Discharge, No Vision Changes Cardiovascular : No Chest Pain, No SOB, No Dyspnea on Exertion, No Orthopnea, No Edema, No Palpitations Respiratory : No Cough, No Sputum, No Wheezing, No Smoke Exposure, No Dyspnea Gastrointestinal : No Nausea, No Vomiting, No Diarrhea, No Constipation, No abdominal Pain, No Hematochezia, No Melena Genitourinary : no irregular bleeding, No Dysuria, No Urinary Frequency, No Hematuria, No Urinary Incontinence, No Urgency, No Flank Pain, No Urinary Flow Changes, No Hesitancy Musculoskeletal : No joint pain, No Myalgias, No Joint Swelling Skin : No Skin Lesions, No rash Neuro : No Weakness, No Numbness, No Paresthesias, No Loss of Consciousness, No Dizziness, No Headache Psych : Complaining of anxiety, auditory hallucinations, vague SI, no HI Heme/Lymph: No Bruising, No Bleeding,No Lymphadenopathy Endocrine : No Polyuria, No Polydipsia, No Temperature Intolerance PMFSH Past Medical History Medical History Suicidal ideation Asthma Suicidal ideation MDD (major depressive disorder), recurrent episode, severe Chest pain Acute anxiety COVID-19 Full body hives Major depression Dizziness Suicide attempt UTI (urinary tract infection) Acetaminophen overdose COVID History of attempted suicide History of non-suicidal self-harm Hypomagnesemia Suicide attempt Suicide attempt by acetaminophen overdose Acetaminophen overdose Depression Diabetes type 2, controlled Borderline personality disorder PTSD (post-traumatic stress disorder) Overdose GERD (gastroesophageal reflux disease) Mood disorder Hyperlipidemia Bronchitis Social History Social History Household Members: Other Household Members Other:: [facility] members Housing: Other Housing Other:: Group Do you presently have visiting nurse or other home services: Yes ([facility] staff manage meds) Unable to assess alcohol history related to: Refusing to respond Alcohol intake: never Comment: sitter in room Patient Tobacco Use Status: Current everyday Tobacco user Tobacco use type: Cigarette Cigarette Packs Per Day: 1 Cigarettes Per Day: 20.0 Years Smoked: 23 Smoked in Last 30 Days: Yes e-Cigarette/Vaping Use: Never Used Second Hand Smoke Exposure: No Use of substances other than those prescribed or required for medical reasons: No Substance Use Type: Caffiene Advance Directives: No Advance Directives Information Provided: No Do you have a plan to hurt others: No Plan Patient : No service: No Current occupational status: unemployed and disabled Sexual orientation: Straight/Heterosexual Physical Exam Exam: Exam: Appearance: Alert. Oriented X3. No acute distress. Eyes: Pupils equal, round and reactive to light. ENT: Pharynx normal. Neck: Normal inspection. Neck supple. No lymph nodes noted. No crepitus CVS: Normal heart rate and rhythm. Pulses normal. Normal S1 and S2 Respiratory: No respiratory distress. Breath sounds normal. No Wheezing. No rales Abdomen: Soft and nontender. No rigidity. No distention. Skin: Skin warm and dry. Normal skin color. Normal skin turgor. Patient has superficial lacerations to left forearm, bleeding controlled Extremities: No lower extremity edema. No Lacerations. No Rash Neuro: Oriented X 3. No motor deficit. No sensory deficit. Moving all extremities. No slurred speech. CN 2 through 12 grossly intact Psych: calm, cooperative, normal affect Vital Signs: Vital Signs: Last Vital Signs Temp 98.0 F 06/15/25 18:58 Pulse 117 H 06/15/25 18:58 Resp 18 06/15/25 18:58 BP 149/86 H 06/15/25 18:58 Pulse Ox 96 06/15/25 18:58 O2 Del Method Room Air 06/15/25 18:58 BMI result Body Mass Index 41.5 Course Course Course Narrative: Patient is well-known to the behavioral health team Care team consult pending Labs pending Physician observation started at 18:00 Medical Decision Making Medical Decision Making [facility] Narrative: My interpretation of labs, no significant abnormality in patient's hematology or chemistry, normal LFTs, urinalysis negative for UTI The recovery team evaluated the patient. They spoke with other care teams from the hospitalist in the area. Patient has been going from hospital to hospital with the same complaints. The [facility] states that the patient is at her mental baseline and they are willing to take her back. Differential Diagnosis Differential Diagnoses: The differential diagnosis associated with the presentation includes (Anxiety, depression, hallucinations) Admission/Observation Consideration of admission/observation: Escalation of care including admission/observation considered (Given patient's ongoing symptoms, observation was considered) Consult Healthcare Provider Management of the patient was discussed with: Behavioral Health Provider Lab Data [facility] Lab Attestation statement: I reviewed the patient's lab results. 06/15/25 16:04 06/15/25 16:04 Labs: Lab Results 06/15/25 06/15/25 Range/Units 15:57 16:04 WBC 10.0 (4.8-10.8) X10*3/uL RBC 4.04 L (4.20-5.50) X10*6/uL Hgb 12.7 (12.0-16.0) g/dl Hct 36.5 L (37.0-47.0) % MCV 90.3 (80.0-98.0) fL MCH 31.4 (27.0-33.0) pg MCHC 34.8 (31.0-35.0) g/dl RDW 13.0 (11.0-16.0) % Plt Count 329 (160-400) X10*3/uL MPV 9.0 L (9.4-12.3) fL Immature Gran % (Auto) 0.7 H (0.0-0.4) % Neut % (Auto) 74.1 H (45-73) % Lymph % (Auto) 13.9 L (20-40) % [place] % (Auto) 8.3 (2-11) % Eos % (Auto) 2.6 (0-4) % Baso % (Auto) 0.4 (0-2) % Lymph # (Auto) 1.4 (1.2-4.9) X10*3/uL [place] # (Auto) 0.8 (0.1-1.2) X10*3/uL Eos # (Auto) 0.3 (0.0-0.4) X10*3/uL Baso # (Auto) 0.0 (0.0-0.2) X10*3/uL Abs Immat Gran (auto) 0.07 H (0.00-0.03) X10*3/uL Absolute Neuts (auto) 7.4 (2.0-8.3) x10*3/uL Absolute Nucleated RBC 0.000 (0.0-0.012) X10*3/uL Nucleated RBC % (auto) 0.0 (0.0-0.2) /100WBC Sodium 139 (135-145) mmol/L Potassium 3.4 (3.3-5.1) mmol/L Chloride 104 (96-108) mmol/L Carbon Dioxide 24 (22-29) mmol/L Anion Gap 14 (12-20) BUN 6 L (9-16) mg/dL Creatinine 0.64 (0.5-1.4) mg/dL Estim Creat Clear Calc 131.5 Estimated GFR > 60 Random Glucose 129 H (60-115) mg/dL Calcium 8.8 (8.4-10.2) mg/dL Total Bilirubin 0.3 (0.0-1.0) mg/dL AST 26 (5-31) U/L ALT 29 (0-31) U/L Alkaline Phosphatase 157 H (39-117) U/L Total Protein 7.2 (6.5-8.0) g/dL Albumin 4.6 (3.5-5.0) g/dL Urine Color Yellow Urine Appearance Clear Urine pH 5.5 (5.0-9.0) Ur Specific [place] <= 1.005 (1.005-1.025) Urine Protein Negative (Neg-Trace) mg/dL Urine Glucose (UA) Negative (Negative) mg/dL Urine Ketones Negative (Negative) mg/dL Urine Blood Negative (Negative) Urine Nitrite Negative (Negative) Ur Leukocyte Esterase Negative (Negative) Urine Opiates Screen Not Detected (Not Detect) Ur Buprenorphine Scrn Not Detected (Not Detect) ng/mL Ur Oxycodone Screen Not Detected (Not Detect) ng/mL Urine Methadone Screen Not Detected (Not Detect) ng/mL Urine Fentanyl Screen Not Detected (Not Detect) Acetaminophen < 3 (<30) mcg/mL Ur Barbiturates Screen Not Detected (Not Detect) Ur Phencyclidine Scrn Not Detected (Not Detect) Ur Amphetamines Screen Not Detected (Not Detect) U Benzodiazepines Scrn Not Detected (Not Detect) Urine Cocaine Screen Not Detected (Not Detect) U Marijuana (THC) Screen Not Detected (Not Detect) Critical Care Time Critical Care Time Critical Care Time: Yes Total Critical Care Time: 35 Attestation: I have personally provided critical care time. Time includes review of lab data, radiology results, discussion with consultants, and monitoring for potential decompensation. Intervention performed as documented. Discharge Plan Discharge Clinical Impression: Hallucinations Patient Disposition: Home, Self-Care Instructions: Hallucinations (ED) Additional Instructions: Please follow-up with your primary care physician tomorrow. If you have any worsening or new symptoms, please return to the emergency room or call 911 Prescriptions: No Action glycopyrrolate 1 mg tablet 1 mg PO BID atorvastatin 10 mg tablet 10 mg PO DAILY lorazepam 0.5 mg tablet 0.5 mg PO BID Rx Instructions: Take 1 tablet at 9am and 1 tablet at 4pm ferrous sulfate 325 mg (65 mg iron) tablet 325 mg PO BID docusate sodium 100 mg capsule 100 mg PO BID montelukast 10 mg tablet 10 mg PO DAILY mirtazapine 15 mg tablet 15 mg PO BEDTIME ibuprofen 600 mg tablet 600 mg PO Q6H PRN (Reason: Mild Pain (Scale Score 1-4)) Trelegy Ellipta 200-62.5-25 mcg blister with device 1 ea inhalation DAILY ciprofloxacin HCl 250 mg tablet 250 mg PO BID fluoxetine 40 mg capsule 80 mg PO DAILY clozapine 100 mg tablet 200 mg PO BEDTIME albuterol sulfate 90 mcg/actuation HFA aerosol inhaler 2 puff inhalation Q6H PRN (Reason: Wheezing) prazosin 2 mg capsule 4 mg PO BEDTIME metformin 500 mg tablet 500 mg PO BID haloperidol 5 mg tablet 5 mg PO BID@0900,1600 amlodipine 2.5 mg Tablet 7.5 mg PO DAILY 30 Days Qty: 90 0RF Protocol: Hold for SBP< HOLD for SBP < : 90 nystatin 100,000 unit/gram Cream 1 appl topical BID 30 Days Qty: 30 0RF Protocol: Apply to: Apply to: affected area hydrochlorothiazide 12.5 mg Tablet 12.5 mg PO DAILY 30 Days Qty: 30 0RF Protocol: Hold for SBP< HOLD for SBP < : 90 haloperidol 5 mg Tablet 15 mg PO BEDTIME 30 Days Qty: 90 0RF Interventions: [place]-Suicide Risk Severity Scale Last Done: 06/15/25 15:41 Print Language: Persian
[2025-06-15 18:58] VITALS: BP 149/86; PULSE 117; RESP 18; TEMP 36.7; O2SAT 96
[2025-06-15 20:24] VITALS: BP 149/86; PULSE 117; RESP 18; TEMP 36.7; O2SAT 96
[2025-06-15 20:29] LABS: UPreg QC Valid YES
== END 2025-06-15 20:24 | disposition home or self-care (01) ==
PROVIDERS: Emergency Provider Emergency Medicine; PCP Nurse Practitioner Family
DX: R44.0 Auditory hallucinations (principal); R00.0 Tachycardia, unspecified; S51.812A Laceration without foreign body of left forearm, initial encounter; X78.9XXA Intentional self-harm by unspecified sharp object, initial encounter; Y93.9 Activity, unspecified; Y92.9 Unspecified place or not applicable; Y99.9 Unspecified external cause status; E11.9 Type 2 diabetes mellitus without complications; E78.5 Hyperlipidemia, unspecified; Z79.899 Other long term (current) drug therapy
CPT/HCPCS: 36415; 80053; 80143; 80307; 81003; 81025; 85025; 93005; 99285; S9485

== ENCOUNTER → 2025-06-15 16:11 | Outpatient (BNV) | payer MEDICARE, MEDICAID, SELFPAY | PROVIDERS: Emergency Provider Emergency Medicine; PCP Nurse Practitioner Family; Visit Provider Internal Medicine Cardiovascular Disease | DX: R00.0 Tachycardia, unspecified (principal) | CPT/HCPCS: 93010 ==

== ENCOUNTER 2025-06-16 15:54 | Emergency (ER) | payer MEDICARE, MEDICAID, SELFPAY ==
[2025-06-16 16:02] VITALS: BP 128/66; BP 172/84; PULSE 128; PULSE 92; RESP 18; TEMP 36.9; O2SAT 97; O2SAT 99; BMI 38.7
[2025-06-16 16:23] VITALS: BP 172/84; PULSE 128; RESP 18; TEMP 36.9; O2SAT 97
[2025-06-16 17:05] LABS: Appearance Urine Clear; Glucose Urine UA Negative (Negative); PH 6.0 (5.0-9.0); Specific Gravity - Urine <= 1.005 (1.005-1.025); UPreg QC Valid YES
[2025-06-16 17:10] LABS: Cannabinoid Screen Urine Not Detected (Not Detect)
--- NOTE | 2025-06-16 17:10 | ED.GENADULT ---
HPI - General Adult General Chief complaint: Psychiatric Symptoms Stated complaint: SI, hearing voices Time Seen by Provider: 06/16/25 16:04 Source: patient, RN notes reviewed and old records reviewed Mode of arrival: EMS Limitations: no limitations History of Present Illness ED Provider: Hilda KIRBY narrative: 49-year-old female who was well known to this emergency department for frequent visits with past medical history significant for hypertension, GERD, diabetes, borderline personality disorder, PTSD presents for evaluation of hallucinations. patient reports both auditory and visual hallucinations. She reports hearing voices that are telling her to cut herself. She does have some scratches to her left arm that she reports she did yesterday with a piece of broken glass that she had found. The patient is actually seen in his symptoms department yesterday for the same complaint and ultimately discharged back to her [facility]. She also reports visual hallucinations and she states that she sees her father who is and she reports that she has been seeing him for the last 2 days or so. She reports that she has been compliant with all her medications. Denies any somatic complaints Related Data Home Medications ?Medication ?Instructions ?Recorded ?Confirmed albuterol sulfate 90 mcg/actuation 2 puff inhalation Q6H PRN Wheezing 06/24/24 06/16/25 aerosol inhaler clozapine 100 mg tablet 200 mg PO BEDTIME 06/24/24 06/16/25 prazosin 2 mg capsule 4 mg PO BEDTIME 06/24/24 06/16/25 metformin 500 mg tablet 500 mg PO BID 07/15/24 06/16/25 haloperidol 5 mg tablet 5 mg PO BID@0900,1600 01/10/25 06/16/25 atorvastatin 10 mg tablet 10 mg PO DAILY 05/23/25 06/16/25 ferrous sulfate 325 mg (65 mg 325 mg PO BID 05/23/25 06/16/25 iron) tablet fluticasone fur. 200 mcg-umeclid 1 ea inhalation DAILY 05/23/25 06/16/25 62.5 mcg-vilant 25 mcg inhalat.powder (Trelegy Ellipta) glycopyrrolate 1 mg tablet 1 mg PO BID 05/23/25 06/16/25 ibuprofen 600 mg tablet 600 mg PO Q6H PRN Mild Pain (Scale 05/23/25 06/16/25 Score 1-4) lorazepam 0.5 mg tablet 0.5 mg PO BID 05/23/25 06/16/25 mirtazapine 15 mg tablet 15 mg PO BEDTIME 05/23/25 06/16/25 montelukast 10 mg tablet 10 mg PO DAILY 05/23/25 06/16/25 Previous Rx's ?Medication ?Instructions ?Recorded amlodipine 2.5 mg tablet 7.5 mg PO DAILY 30 days #90 tabs 06/01/25 haloperidol 5 mg tablet 15 mg (3 x 5 mg) PO BEDTIME 30 06/01/25 days #90 tabs hydrochlorothiazide 12.5 mg tablet 12.5 mg PO DAILY 30 days #30 tabs 06/01/25 nystatin 100,000 unit/gram topical 1 appl topical BID 30 days #30 06/01/25 cream grams Allergies Allergy/AdvReac Type Severity Reaction Status Date / Time azithromycin (AZITHROMYCIN) Allergy Severe Rash Verified 06/16/25 16:06 Fish Containing Products Allergy Severe Anaphylaxis Verified 06/16/25 16:06 codeine (Codeine) Allergy Intermediate Rash Verified 06/16/25 16:06 Penicillins Allergy Intermediate Rash Verified 06/16/25 16:06 prednisone (Prednisone) Allergy Intermediate Rash Verified 06/16/25 16:06 Sulfa (Sulfonamide Allergy Intermediate Rash Verified 06/16/25 16:06 Antibiotics) (Sulfa (Sulfonamides)) ziprasidone (From Geodon) Allergy Intermediate dysuria, Verified 06/16/25 16:06 rash lithium Allergy Unknown Rash Verified 06/16/25 16:06 Review of Systems Constitutional: Constitutional: Denies body ache(s), Denies chills and Denies fever(s) Eyes: Eyes: Denies blurry vision ENT: Denies dizziness Cardiovascular: Cardiovascular: Denies chest pain and Denies dyspnea on exertion Respiratory: Respiratory: Reports cough (reports chronic cough) and Denies dyspnea on exertion Gastrointestinal: Gastrointestinal: Denies abdominal pain, Denies nausea and Denies vomiting Musculoskeletal: Musculoskeletal: Denies back pain Neurologic: Denies dizziness Psychiatric: Psychiatric: Reports anxiety, Reports depression, Reports auditory hallucinations, Reports visual hallucinations and Reports suicidal ideation PMFSH Past Medical History Medical History Suicidal ideation Asthma Suicidal ideation MDD (major depressive disorder), recurrent episode, severe Chest pain Acute anxiety COVID-19 Full body hives Major depression Dizziness Suicide attempt UTI (urinary tract infection) Acetaminophen overdose COVID History of attempted suicide History of non-suicidal self-harm Hypomagnesemia Suicide attempt Suicide attempt by acetaminophen overdose Acetaminophen overdose Depression Diabetes type 2, controlled Borderline personality disorder PTSD (post-traumatic stress disorder) Overdose GERD (gastroesophageal reflux disease) Mood disorder Hyperlipidemia Bronchitis Social History Social History Household Members: Other Household Members Other:: [facility] members Housing: Other Housing Other:: Group Do you presently have visiting nurse or other home services: Yes ([facility] staff manage meds) Unable to assess alcohol history related to: Unknown Alcohol intake: never Comment: sitter in room Patient Tobacco Use Status: Current everyday Tobacco user Tobacco use type: Cigarette Cigarette Packs Per Day: 1 Cigarettes Per Day: 20.0 Years Smoked: 23 Smoked in Last 30 Days: Yes e-Cigarette/Vaping Use: Never Used Second Hand Smoke Exposure: No Use of substances other than those prescribed or required for medical reasons: No Substance Use Type: Caffiene Do you have a plan to hurt others: No Plan service: No Current occupational status: unemployed and disabled Sexual orientation: Straight/Heterosexual Physical Exam ED Vital Signs: Vital Signs - 24 hr 06/16/25 16:02 06/16/25 16:23 Temperature 98.5 F 98.5 F Pulse Rate 128 H 128 H Respiratory Rate 18 18 Blood Pressure 172/84 H 172/84 H Pulse Oximetry 97 97 Oxygen Delivery Method Room Air Room Air BMI result Body Mass Index 38.7 Const General: healthy appearing, comfortable, no acute distress, alert and awake Nutritional Appearance: well nourished Orientation/consciousness: patient oriented x3 HENMT Head: Yes normocephalic and Yes atraumatic Throat: Yes posterior oropharynx normal Eyes Eyelids: Yes eyelids normal Conjunctivae: conjunctivae normal Sclerae: sclerae normal Corneas: corneas normal Pupils: Equal, round and reactive pupils present EOM: EOMs intact bilaterally Neck Neck: Yes full ROM Resp Effort & Inspection: normal respiratory effort, able to speak in complete sentences and not labored Cardio Rate: regular rate Rhythm: regular rhythm GI Inspection: No distended Palpation (GI): Soft to palpation, not firm, nontender, no guarding and not rigid Skin Other: there was about 10 superficial abrasions to the left forearm that are healing. No deep lacerations, no surrounding erythema General skin exam: elasticity normal Neuro General: patient oriented x3 Cranial nerves: Yes Equal, round and reactive pupils present and Yes Bilaterally intact EOM present Cognition (Neuro): normal cognition Extrem Other: Moving all extremities well without any obvious deformities Course Reevaluation(s) Reevaluation #1: patient was seen with the care team and cleared for discharge. She reports that she feels safe to go home Time: 19:21 Medical Decision Making Medical Decision Making MDM Narrative: 49-year-old female with a past medical history as above presents for evaluation of auditory and visual hallucinations. She is hearing voices telling her to harm herself. She has no specific plan and has not done anything to harm herself. Plan for medical clearance and care team evaluation. Differential Diagnosis Differential Diagnoses: The differential diagnosis associated with the presentation includes Acute psychosis Substance abuse Borderline personality disorder Bipolar disorder Schizoaffective disorder Lab Data 06/16/25 17:35 06/16/25 17:35 Labs: Lab Results 06/16/25 06/16/25 Range/Units 16:54 17:35 WBC 9.3 (4.8-10.8) X10*3/uL RBC 4.15 L (4.20-5.50) X10*6/uL Hgb 13.1 (12.0-16.0) g/dl Hct 38.1 (37.0-47.0) % MCV 91.8 (80.0-98.0) fL MCH 31.6 (27.0-33.0) pg MCHC 34.4 (31.0-35.0) g/dl RDW 13.0 (11.0-16.0) % Plt Count 336 (160-400) X10*3/uL MPV 9.1 L (9.4-12.3) fL Immature Gran % (Auto) 0.9 H (0.0-0.4) % Neut % (Auto) 70.9 (45-73) % Lymph % (Auto) 16.8 L (20-40) % [place] % (Auto) 8.2 (2-11) % Eos % (Auto) 2.7 (0-4) % Baso % (Auto) 0.5 (0-2) % Lymph # (Auto) 1.6 (1.2-4.9) X10*3/uL [place] # (Auto) 0.8 (0.1-1.2) X10*3/uL Eos # (Auto) 0.3 (0.0-0.4) X10*3/uL Baso # (Auto) 0.1 (0.0-0.2) X10*3/uL Abs Immat Gran (auto) 0.08 H (0.00-0.03) X10*3/uL Absolute Neuts (auto) 6.6 (2.0-8.3) x10*3/uL Absolute Nucleated RBC 0.000 (0.0-0.012) X10*3/uL Nucleated RBC % (auto) 0.0 (0.0-0.2) /100WBC Sodium 138 (135-145) mmol/L Potassium 3.3 (3.3-5.1) mmol/L Chloride 99 (96-108) mmol/L Carbon Dioxide 25 (22-29) mmol/L Anion Gap 17 (12-20) BUN 8 L (9-16) mg/dL Creatinine 0.70 (0.5-1.4) mg/dL Estim Creat Clear Calc 124.1 Estimated GFR > 60 Random Glucose 214 H (60-115) mg/dL Calcium 9.1 (8.4-10.2) mg/dL Total Bilirubin 0.3 (0.0-1.0) mg/dL AST 24 (5-31) U/L ALT 27 (0-31) U/L Alkaline Phosphatase 171 H (39-117) U/L Total Protein 7.3 (6.5-8.0) g/dL Albumin 4.7 (3.5-5.0) g/dL Urine Color Yellow Urine Appearance Clear Urine pH 6.0 (5.0-9.0) Ur Specific [place] <= 1.005 (1.005-1.025) Urine Protein Negative (Neg-Trace) mg/dL Urine Glucose (UA) Negative (Negative) mg/dL Urine Ketones Negative (Negative) mg/dL Urine Blood Negative (Negative) Urine Nitrite Negative (Negative) Ur Leukocyte Esterase Negative (Negative) Urine RBC 0-2 (0-2) /HPF Urine WBC 0-5 (0-5) /HPF Ur Squamous Epith Cells 3-5 (0-2) /HPF Urine Bacteria Trace (None Seen) Hyaline Casts 0-2 (0-2) /LPF Urine Test NEGATIVE (NEGATIVE) Urine Opiates Screen Not Detected (Not Detect) Ur Buprenorphine Scrn Not Detected (Not Detect) ng/mL Ur Oxycodone Screen Not Detected (Not Detect) ng/mL Urine Methadone Screen Not Detected (Not Detect) ng/mL Urine Fentanyl Screen Not Detected (Not Detect) Ur Barbiturates Screen Not Detected (Not Detect) Ur Phencyclidine Scrn Not Detected (Not Detect) Ur Amphetamines Screen Not Detected (Not Detect) U Benzodiazepines Scrn Not Detected (Not Detect) Urine Cocaine Screen Not Detected (Not Detect) U Marijuana (THC) Screen Not Detected (Not Detect) Ethyl Alcohol < 10 mg/dL Discharge Plan Discharge Clinical Impression: Hallucinations Patient Disposition: Home, Self-Care Instructions: Hallucinations (ED) Additional Instructions: You were seen in our Emergency Department today for treatment of a behavioral health issue. It is important after your visit that you follow up with either your behavioral health provider or a primary care doctor within 7 days.? If you have trouble finding a therapist you can reach out to [address] [phone] The National Suicide and Crisis Lifeline can be reached 7 days a week 24 hours a day.? Call 988 to speak with someone.? Return for any worsening symptoms or concerns such as thoughts of self harm or harm to others. Please call 911 if you feel your mental health is worsening.? Prescriptions: No Action glycopyrrolate 1 mg tablet 1 mg PO BID atorvastatin 10 mg tablet 10 mg PO DAILY lorazepam 0.5 mg tablet 0.5 mg PO BID Rx Instructions: Take 1 tablet at 9am and 1 tablet at 4pm ferrous sulfate 325 mg (65 mg iron) tablet 325 mg PO BID montelukast 10 mg tablet 10 mg PO DAILY mirtazapine 15 mg tablet 15 mg PO BEDTIME ibuprofen 600 mg tablet 600 mg PO Q6H PRN (Reason: Mild Pain (Scale Score 1-4)) Trelegy Ellipta 200-62.5-25 mcg blister with device 1 ea inhalation DAILY clozapine 100 mg tablet 200 mg PO BEDTIME albuterol sulfate 90 mcg/actuation HFA aerosol inhaler 2 puff inhalation Q6H PRN (Reason: Wheezing) prazosin 2 mg capsule 4 mg PO BEDTIME metformin 500 mg tablet 500 mg PO BID haloperidol 5 mg tablet 5 mg PO BID@0900,1600 amlodipine 2.5 mg Tablet 7.5 mg PO DAILY 30 Days Qty: 90 0RF Protocol: Hold for SBP< HOLD for SBP < : 90 nystatin 100,000 unit/gram Cream 1 appl topical BID 30 Days Qty: 30 0RF Protocol: Apply to: Apply to: affected area hydrochlorothiazide 12.5 mg Tablet 12.5 mg PO DAILY 30 Days Qty: 30 0RF Protocol: Hold for SBP< HOLD for SBP < : 90 haloperidol 5 mg Tablet 15 mg PO BEDTIME 30 Days Qty: 90 0RF Interventions: [place]-Suicide Risk Severity Scale Last Done: 06/16/25 16:23 Print Language: Turkish
[2025-06-16 17:39] LABS: MANUAL DIFF FLAG NO
[2025-06-16 17:40] LABS: Hematocrit 38.1 % (37.0-47.0); Hemoglobin 13.1 g/dl (12.0-16.0); Imm Gran Abs Auto 0.08 X10*3/uL (0.00-0.03); Imm Gran Pct Auto 0.9 % (0.0-0.4); Lymphocytes Absolute Auto 1.6 X10*3/uL (1.2-4.9); Mean Corpuscular HGB Conc 34.4 g/dl (31.0-35.0); Mean Corpuscular Hemoglobin 31.6 pg (27.0-33.0); Mean Corpuscular Volume 91.8 fL (80.0-98.0); NRBC Abs Auto 0.000 X10*3/uL (0.0-0.012); NRBC Pct Auto 0.0 /100WBC (0.0-0.2); Platelet Count 336 X10*3/uL (160-400); Red Blood Count 4.15 X10*6/uL (4.20-5.50); White Blood Count 9.3 X10*3/uL (4.8-10.8)
[2025-06-16 17:57] LABS: Alanine Aminotransferase 27 U/L (0-31); Albumin Level 4.7 g/dL (3.5-5.0); Alkaline Phosphatase 171 U/L (39-117); Anion Gap 17 (12-20); Aspartate Amino Transferase 24 U/L (5-31); Blood Urea Nitrogen 8 mg/dL (9-16); Calcium 9.1 mg/dL (8.4-10.2); Carbon Dioxide 25 mmol/L (22-29); Chloride 99 mmol/L (96-108); Creatinine Clr Calc Pharmacy 124.1; Estimated Glomerular Filt Rate > 60; Potassium 3.3 mmol/L (3.3-5.1); Sodium 138 mmol/L (135-145); Total Protein 7.3 g/dL (6.5-8.0)
--- NOTE | 2025-06-16 18:22 | PC.NURSE ---
Pt has remained calm and cooperative since arrival, she ate her dinner and is currently meeting with the care team. She continues to endorse AH. She denies SI/HI/VH
--- OUTSIDE RECORDS SUMMARY | 2025-06-16 19:37 | XMS_ITS | Encounter Summary ---
Author Organization [facility] [address] Address [address] [place] [address] Care Team Providers Care Bank Guard Name Role Phone Maribel Marquez Primary Care Provider [phone] Encounter Details Date Type Department Care Team (Late st Contact Info) Description 05/25/2025 Lab Requisition [facility] [address] [facility] [place] [address] Wanda Cleveland NP [address] [place] [id number] Other prison (current) drug therapy Social History Tobacco Use [...] of this encounter Visit Diagnoses Diagnosis Other prison (current) drug therapy documented in this encounter Care Teams Bank Guard Relationship Specialty Start Date End Date Maribel Marquez [address] [place] [id number] PCP - General 09/08/24 documented as of this encounter
--- OUTSIDE RECORDS SUMMARY | 2025-06-16 19:37 | XMS_ITS | Clinical Summary ---
Author Organization [facility] Address [address] [address] Phone Care Team Providers Care Mash Grinder Name Role Phone Maribel Marquez NP Primary Care Provider + Allergies Active Allergy Reactions Criticality Noted Date Comments Azithromycin 05/18/2023 Codeine 04/21/2009 Unknown reaction [place] Other (See Comments) 02/27/2013 pt reports 01/17/13 [...] FOBT 2022 SIGMOIDOSCOPY 2022 VIRTUAL COLONOSCOPY 2022 INFLUENZA VACCINE (#1) 2025 , 11/14/2022, 07/12/2021, Additional history exists COVID-19 VACCINE ( season) 2025 12/01/2020, 11/10/2020 CREATININE LEVEL 08/24/2025 08/24/2024, 10/2023, 08/15/2024, Additional history exists POTASSIUM LEVEL 08/24/2025 08/24/2024, 1110/2023, 08/15/2024, Additional history exists SCREENING FOR DIABETES [...] EST) SODIUM 140 136 - 145 mmol/L [facility] POTASSIUM 3.7 3.4 - 5.1 mmol/L [facility] CHLORIDE 102 98 - 107 mmol/L [facility] CO2 23 22 - 31 mmol/L [facility] BUN 12 6 - 23 mg/dL [facility] CREATININE 0.63 0.50 - 1.20 mg/dL [facility] GLUCOSE 160(H) 70 - 100 mg/dL [facility] CALCIUM 9.2 8.8 - 10.7 mg/dL [facility] EGFR 111 >59 mL/min/1.7 3m2 [facility] Comment:Estimated glomerular filtration rate calculated using the CKD-EPI refit equation. ANION GAP 15 7 - 17 mmol/L [facility] Blood 08/24/2024 3:05 AM EST 08/24/2024 3:15 AM EST Parvez Duenas MD, MPH LAB BLOOD ORDERABLES F inal Result [facility] [address] [place] [address] from Last 3 Months or Most Recently Relevant to Health Maintenance Insurance [facility] MEDICARE PART A & B [facility] A & [place] [facility] PART A & [place] [facility] [place] PART [place] & B [facility] MEDICARE PART A & B Care Teams Mash Grinder Relationship Specialty Start Date End Date Maribel Marquez NP [address] [place] [address] PCP - General Nurse Practitioner 04/02/24 Additional Source Comments The information contained in this document represents components of the legal health record. It is not the complete legal health record.[facility]
--- OUTSIDE RECORDS SUMMARY | 2025-06-16 19:37 | XMS_ITS | Clinical Summary ---
Author Organization [facility] Address [address] [place] [phone] Phone Care Team Providers Care Assistant Property Manager Name Role Phone Maribel Marquez Primary Care Provider [phone] Allergies Active Allergy Reactions Criticality Noted Date Comments Azithromycin Rash Low 09/07/2024 Codeine Unknown 09/07/2024 Pt doesn't recall Fish Derived Unknown 10/14/2024 Ziprasidone Hcl Unknown 09/07/2024 Pt doesn't recall [place] Unknown 09/07/2024 Pt doesn't recall Nitrofurantoin Monohyd/M-Cryst [...] EDT - 06/03/2025 10:30 AM EDT Emergency [facility] Emergency [address] [place] [address] Rudi Hilliard MD Franco, Andrew S, MD Suicidal ideations (Primary Dx); Dermoid cyst of right ovary; Acute UTI Discharge Disposition: Home or Self Care 05/25/2025 Lab Requisition [facility] - Main Lab [address] [facility] [place] [phone] Wanda Cleveland NP Other assisted (current) drug therapy 05/18/2025 6:33 PM EDT - 05/18/2025 9:54 PM EDT Emergency [facility] Emergency [address] [place] [phone] Janine Stewart DO Auditory hallucinations (Primary Dx); Deliberate self-cutting Discharge Disposition: Home or Self Care 05/02/2025 8:55 PM EDT - 05/03/2025 10:35 AM EDT Emergency [facility] Emergency [address] [place] [address] Karolina Gracia MD Goebel, Mathew, MD Suicidal ideation (Primary Dx) Discharge Disposition: Home or Self Care 04/18/2025 8:18 PM EDT - 04/18/2025 10:04 PM EDT [facility] Emergency [address] [place] [phone] Rosemary Cash DO Auditory hallucinations (Primary Dx) Discharge Disposition: Home or Self Care 04/11/2025 9:55 PM EDT - 04/12/2025 9:36 AM EDT [facility] Emergency [address] [place] [phone] Rosemary Cash DO Montano, Gary L, MD Borderline personality disorder ([facility] V24, [facility] V28) (Primary Dx) Discharge Disposition: Home [...] 06/25/2017 DX:Hypertension Asthma 07/13/1999 DX:Asthma Bipolar disorder ([facility] V2 4, [facility] V28) 12/12/2005 DX:Bipolar disorder ([facility]) GERD (gastroesophageal reflux disease) 01/20/2016 DX:GERD (gastroesophageal reflux disease) History of pseudoseizure 06/10/2012 DX:Hist ory of pseudoseizure Hypercholesteremia 07/17/2007 DX:Hyperchole steremia Tobacco use disorder 02/17/2010 DX:Tobacco use disorder Migraine 06/25/2017 DX:Migraine; COM MENT: Follows with neurologist PTSD (post-traumatic stress disorder) 01/20/2016 DX:PTSD (post-traumatic stress disorder) Borderline personality disor pritesh ([facility] [place], [facility] V28) 06/26/2017 DX:Borderline personality d isorder ([facility]) Marijuana use 06/26/2017 DX:Marijuana use First degree AV block 10/09/2017 DX:First d egree AV block; COMMENT: Follows with [place] [facility] 09/2017. Holter pending Pericardial effusion 10/09/2017 DX:Pericard ial effusion; COMMENT: TTE while hospitalized 09/2017 follows with [facility]. Repeat TTE ordered. Not hemodynamically significant Depression 09/02/2002 DX:Depression; C OMMENT: S/p multiple psych admissions for suicide attempts and self harm. Overdosing on aspirin, tylenol, ibuprofen Obesity (BMI 30-39.9) 06/24/2019 DX:Obesity (BMI 30-39.9) Suicide attempt by acetamino phen overdose ([facility] [place]24, [facility] V28) 10/26/2020 DX:Suicide attempt by acetaminophen overdose ([facility]); COMMENT: 09/19/2020 Family History Medical [...] document has been electronically signed by: Zachary Guevraa DO on 06/03/2025 05:06:31 Rudi Hilliard MD [facility] CT PROCEDURES Final Result * (ABNORMAL) Urinalysis with reflex microscopic (06/03/2025 2:49 AM EDT) Specific [place] Urine 1.017 1.003 - 1.030 LAB URINALYSIS - AUTOMATED METHOD 06/03/2025 3:48 AM [facility] pH, Urine 5.5 5.0 - 8.0 pH LAB URINALYSIS - AUTOMATED METHOD 06/03/2025 3:48 AM [facility] Leukocytes, Urine Moderate(A) Negative LAB URINALYSIS - AUTOMATED METHOD 06/03/2025 3:48 AM [facility] Nitrite, Urine Positive(A) Negative LAB URINALYSIS - AUTOMATED METHOD 06/03/2025 3:48 AM [facility] Protein, Urine Negative <=Trace mg/dL LAB URINALYSIS - AUTOMATED METHOD 06/03/2025 3:48 AM [facility] Glucose, Urine 100(A) Negative mg/dL LAB URINALYSIS - AUTOMATED METHOD 06/03/2025 3:48 AM [facility] Ketones, Urine Negative Negative mg/dL LAB URINALYSIS - AUTOMATED METHOD 06/03/2025 3:48 AM [facility] Urobilinogen , Urine 0.2 0.2 - 1.0 mg/dL LAB URINALYSIS - AUTOMATED METHOD 06/03/2025 3:48 AM [facility] Bilirubin, Urine Negative Negative LAB URINALYSIS - AUTOMATED METHOD 06/03/2025 3:48 AM [facility] Blood, Urine Negative Negative LAB URINALYSIS - AUTOMATED METHOD 06/03/2025 3:48 AM [facility] RBC, Urine 1.4 0 - 4 /HPF LAB URINALYSIS - AUTOMATED METHOD 06/03/2025 3:48 AM EDT [facility] WBC, Urine 16.7(H) 0 - 4 /HPF LAB URINALYSIS - AUTOMATED METHOD 06/03/2025 3:48 AM EDT [facility] Squamous Epithelial, Urine 97(H) 0 - 60 /LPF LAB URINALYSIS - AUTOMATED METHOD 06/03/2025 3:48 AM EDT [facility] Bacteria, Urine Many(A) Negative /HPF LAB URINALYSIS - AUTOMATED METHOD 06/03/2025 3:48 AM EDT [facility] Hyaline Casts, Urine 0.4 0 - 3 /LPF LAB URINALYSIS - AUTOMATED METHOD 06/03/2025 3:48 AM EDT [facility] Urine Urine specimen obtained by clean catch procedure / Unknown Non-blood Collection / Unknown 06/03/2025 2:49 AM EDT 06/03/2025 3:04 AM EDT us Rudi Hilliard MD LAB URINE ORDERABLES Final Resul t Performing Organization Address City/Va Hospital/ZIP Co de Phone Number [facility] [address] [place] [address], [place] [phone] * [place] urine culture tube (06/03/2025 2:49 AM EDT) Extra Tube Hold for add-ons. 06/03/2025 5:01 AM EDT [facility] Comment:Auto resulted. Urine Urine specimen obtained by clean catch procedure / Unknown Non-blood Collection / Unknown 06/03/2025 2:49 AM EDT 06/03/2025 3:04 AM EDT us Rudi Hilliard MD LAB URINE ORDERABLES Final Resul t Performing Organization Address [facility]/Va Hospital/ZIP Co de Phone Number [facility] [address] [place] [address], [place] [phone] * Troponin I High Sensitivity (06/03/2025 2:49 AM EDT) [facility] High Sensitivity Troponin I 4 <=54 ng/L LAB CHEMISTRY METHOD 06/03/2025 3:31 AM EDT [facility] Blood Venous blood specimen / Unknown Venipuncture / Unknown 06/03/2025 2:49 AM EDT 06/03/2025 3:05 AM EDT Narrative [facility] - 06/03/2025 3:31 AM EDT High levels of biotin in samples may falsely decrease hsTroponin values. Use caution when interpreting hsTroponin results in patients taking biotin who exhibit renal impairment (eGFR <60) or in patients taking more than 20 mg/day of biotin. us Rudi Hilliard MD LAB BLOOD ORDERABLES Final Resul t [facility] [address] [place] [address], * Drug abuse screen 8a panel, urine (06/03/2025 2:49 AM EDT) Only the most recent of4 resultswithin the time period is included. [facility] Amphetamine Screen, Ur Negative Negative LAB CHEMISTRY METHOD 06/03/2025 3:41 AM EDT [facility] Comment:Certain OTC medicati ons containing ephedrine, phenylephrine, pseudoephedrine and phenylpropanolamine can cause false positive results. Barbiturate Screen, Ur Negative Negative LAB CHEMISTRY METHOD 06/03/2025 3:41 AM EDT [facility] Benzodiazepine Screen, Ur Negative Negative LAB CHEMISTRY METHOD 06/03/2025 3:41 AM EDT [facility] Cocaine Screen, Ur Negative Negative LAB CHEMISTRY METHOD 06/03/2025 3:41 AM EDT [facility] Opiate Screen, Ur Negative Negative LAB CHEMISTRY METHOD 06/03/2025 3:41 AM EDT [facility] Cannabinoid (THC) Screen, Ur Negative Negative LAB CHEMISTRY METHOD 06/03/2025 3:41 AM EDT [facility] Comment:Specimens from patie nts taking pantoprazole sodium (Protonix) have been shown to produce false positive results. Oxycodone Screen, Ur Negative Negative LAB CHEMISTRY METHOD 06/03/2025 3:41 AM EDT [facility] Fentanyl, Ur Negative Negative LAB CHEMISTRY METHOD 06/03/2025 3:41 AM EDT [facility] Urine Urine specimen obtained by clean catch procedure / Unknown Non-blood Collection / Unknown 06/03/2025 2:49 AM EDT 06/03/2025 3:04 AM EDT [facility] LAB - 06/03/2025 3:41 AM EDT [...] CAPELLAN LAB URINE ORDERABLES Fin al Result [facility] [address] [place] [address], * Buprenorphine screen, urine (06/03/2025 2:49 AM EDT) Only the most recent of4 resultswithin the time period is included. Buprenorphine Screen Urine Negative Negative LAB CHEMISTRY METHOD 06/03/2025 3:41 AM EDT [facility] Urine Urine specimen obtained by clean catch procedure / Unknown Non-blood Collection / Unknown 06/03/2025 2:49 AM EDT 06/03/2025 3:04 AM EDT [facility] LAB - 06/03/2025 3:41 AM EDT Assay cutoff 5 ng/mL Semi-quantitative assay for screening purposes only. Unconfirmed screening result should not be used for non-medical purposes. *ALTERNATE METHOD CONFIRMATION DONE UPON REQUEST ONLY* Cara CAPELLAN LAB URINE ORDERABLES Fin al Result Performing Organization Address [facility]/Va Hospital/ZIP Co de Phone Number [facility] [address] [place] [address], * Beta hydroxybutyrate (06/03/2025 2:49 AM EDT) Beta-Hydroxybu tyrate 1.1 0.2 - 2.8 mg/dL LAB CHEMISTRY METHOD 06/03/2025 3:45 AM EDT [facility] Blood Venous blood specimen / Unknown Venipuncture / Unknown 06/03/2025 2:49 AM EDT 06/03/2025 3:05 AM EDT Rudi Hilliard MD LAB BLOOD ORDERABLES Final Resul t Performing Organization Address [facility] Hospital/[facility] Co de Phone Number [facility] [address] [place] [address], * Methadone, urine (06/03/2025 2:49 AM EDT) Only the most recent of4 resultswithin the time period is included. Methadone Screen, Urine Negative Negative LAB CHEMISTRY METHOD 06/03/2025 3:41 AM EDT [facility] Comment: Assay cutoff 300 ng/mL Semi-quantitative assay for screening purposes only. Unconfirmed screening result should not be used for non-medical purposes. *ALTERNATE METHOD CONFIRMATION DONE UPON REQUEST ONLY* Urine Urine specimen obtained by clean catch procedure / Unknown Non-blood Collection / Unknown 06/03/2025 2:49 AM EDT 06/03/2025 3:04 AM EDT Cara CAPELLAN LAB URINE ORDERABLES Fin al Result [facility] [address] [place] [address], * (ABNORMAL) CBC auto differential (06/03/2025 2:49 AM EDT) Only the most recent of4 resultswithin the time period is included. WBC 8.6 4.8 - 10.8 K/mcL LAB HEMETOLOGY METHOD 06/03/2025 3:11 AM EDT [facility] RBC 3.80 3.80 - 4.80 M/mcL LAB HEMETOLOGY METHOD 06/03/2025 3:11 AM EDT [facility] Hemoglobin 11.8 11.5 - 16.0 g/dL LAB HEMETOLOGY METHOD 06/03/2025 3:11 AM EDT [facility] Hematocrit 35.2 35.0 - 47.0 % LAB HEMETOLOGY METHOD 06/03/2025 3:11 AM EDT [facility] MCV 91.7 79.0 - 98.0 FL LAB HEMETOLOGY METHOD 06/03/2025 3:11 AM EDT [facility] MCH 30.7 27.0 - 32.0 pcg LAB HEMETOLOGY METHOD 06/03/2025 3:11 AM EDT [facility] MCHC 33.5 32.0 - 37.0 g/dL LAB HEMETOLOGY METHOD 06/03/2025 3:11 AM EDT [facility] RDW 13.0 11.0 - 15.0 % LAB HEMETOLOGY METHOD 06/03/2025 3:11 AM EDT [facility] Platelets 336 130 - 400 K/mcL LAB HEMETOLOGY METHOD 06/03/2025 3:11 AM EDT [facility] MPV 9.4 7.0 - 11.0 FL LAB HEMETOLOGY METHOD 06/03/2025 3:11 AM [facility] NRBC 0.0 <1.0 % LAB HEMETOLOGY METHOD 06/03/2025 3:11 AM [facility] NRBC Absolute 0.00 <0.10 K/mcL LAB HEMETOLOGY METHOD 06/03/2025 3:11 AM [facility] Neutrophils Relative 62.8 % LAB HEMETOLOGY METHOD 06/03/2025 3:11 AM [facility] Lymphocytes Relative 23.2 % LAB HEMETOLOGY METHOD 06/03/2025 3:11 AM [facility] Monocytes Relative 8.9 % LAB HEMETOLOGY METHOD 06/03/2025 3:11 AM [facility] Eosinophils Relative 3.5 % LAB HEMETOLOGY METHOD 06/03/2025 3:11 AM [facility] Basophils Relative 0.6 % LAB HEMETOLOGY METHOD 06/03/2025 3:11 AM [facility] Immature Granulocytes Relative 1.0 % LAB HEMETOLOGY METHOD 06/03/2025 3:11 AM [facility] Neutrophils Absolute 5.39 1.50 - 7.00 K/mcL LAB HEMETOLOGY METHOD 06/03/2025 3:11 AM [facility] Lymphocytes Absolute 1.99 1.00 - 5.00 K/mcL LAB HEMETOLOGY METHOD 06/03/2025 3:11 AM [facility] Monocytes Absolute 0.76 0.20 - 1.00 K/mcL LAB HEMETOLOGY METHOD 06/03/2025 3:11 AM [facility] Eosinophils Absolute 0.30 0.00 - 0.50 K/mcL LAB HEMETOLOGY METHOD 06/03/2025 3:11 AM [facility] Basophils Absolute 0.05 0.00 - 0.20 K/mcL LAB HEMETOLOGY METHOD 06/03/2025 3:11 AM EDT [facility] Immature Granulocytes Absolute 0.09(H) 0.00 - 0.03 K/mcL LAB HEMETOLOGY METHOD 06/03/2025 3:11 AM EDT [facility] Blood Venous blood specimen / Unknown Venipuncture / Unknown 06/03/2025 2:49 AM EDT 06/03/2025 3:05 AM EDT Cara CAPELLAN LAB BLOOD ORDERABLES Fin al Result Performing Organization Address [facility]/Va Hospital/ZIP Co de Phone Number [facility] [address] [place] [address], * Phencyclidine, urine (06/03/2025 2:49 AM EDT) Only the most recent of4 resultswithin the time period is included. Pathologist [facility] PCP Scrn, Ur Negative Negative LAB CHEMISTRY METHOD 06/03/2025 3:41 AM EDT [facility] Comment: Assay cutoff 25 [...] ORDERABLES Fin al Result Performing Organization Address City/Va Hospital/ZIP Co de Phone Number [facility] [address] [place] [address], [place] [phone] * hCG Quantitative (06/03/2025 2:49 AM EDT) hCG Quant <1 mIU/mL LAB CHEMISTRY METHOD 06/03/2025 3:45 AM EDT [facility] Blood Venous blood specimen / Unknown Venipuncture / Unknown 06/03/2025 2:49 AM EDT 06/03/2025 3:05 AM EDT Narrative [facility] - 06/03/2025 3:45 AM EDT Quantitative HCG Reference Ranges Time after Conception MIU/ML 0.2-1 Week 5-50 1-2 Weeks 50-500 2-3 Weeks 100-5,000 3-4 Weeks 500-10,000 4-5 Weeks 1,000-50,000 5-6 Weeks 10,000-100,000 6-8 Weeks 15,000-200,000 2-3 Months 10,000-100,000 2nd Trimester 1,000-94,000 3rd Trimester 2,500-90,000 Non- Females 1-3 us Rudi Hilliard MD LAB BLOOD ORDERABLES Final Resul t Performing Organization Address City/Va Hospital/ZIP Co de Phone Number [facility] [address] [place] [address], [place] [phone] * Lipase (06/03/2025 2:49 AM EDT) Lipase 23 13 - 75 unit/L LAB CHEMISTRY METHOD 06/03/2025 3:41 AM EDT [facility] Blood Venous blood specimen / Unknown Venipuncture / Unknown 06/03/2025 2:49 AM EDT 06/03/2025 3:05 AM EDT us Rudi Hilliard MD LAB BLOOD ORDERABLES Final Resul t Performing Organization Address [facility]/Va Hospital/ZIP Co de Phone Number [facility] [address] [place] [address], [place] [phone] * (ABNORMAL) Lactate (06/03/2025 2:49 AM EDT) Lactate 2.8(H) 0.4 - 2.0 mmol/L LAB CHEMISTRY METHOD 06/03/2025 3:31 AM EDT [facility] Blood Venous blood specimen / Unknown Venipuncture / Unknown 06/03/2025 2:49 AM EDT 06/03/2025 3:04 AM EDT us Rudi Hilliard MD LAB BLOOD ORDERABLES Final Resul t Performing Organization Address [facility] Hospital/[facility] Co de Phone Number [facility] [address] [place] [address], * Ethanol (06/03/2025 2:49 AM EDT) Only the most recent of4 resultswithin the time period is included. Ethanol Level <3 0 - 10 mg/dL LAB CHEMISTRY METHOD 06/03/2025 3:41 AM EDT [facility] Blood Venous blood specimen / Unknown Venipuncture / Unknown 06/03/2025 2:49 AM EDT 06/03/2025 3:05 AM EDT Cara CAPELLAN LAB BLOOD ORDERABLES Fin al Result Performing Organization Address [facility] Hospital/[facility] de Phone Number [facility] [address] [place] [address], * (ABNORMAL) Acetaminophen level (06/03/2025 2:49 AM EDT) Only the most recent of4 resultswithin the time period is included. Acetaminophen Level <2.0(L) 10.0 - 30.0 mcg/mL LAB CHEMISTRY METHOD 06/03/2025 3:41 AM EDT [facility] Blood Venous blood specimen / Unknown Venipuncture / Unknown 06/03/2025 2:49 AM EDT 06/03/2025 3:05 AM EDT us Cara CAPELLAN LAB BLOOD ORDERABLES Fin al Result Performing Organization Address City/Va Hospital/ZIP Co de Phone Number [facility] [address] [place] [address], [place] [phone] * Salicylate level (06/03/2025 2:49 AM EDT) Only the most recent of4 resultswithin the time period is included. Pathologist [facility] Salicylate Level 2.9 2.0 - 29.0 mg/dL LAB CHEMISTRY METHOD 06/03/2025 3:41 AM EDT [facility] Blood Venous blood specimen / Unknown Venipuncture / Unknown 06/03/2025 2:49 AM EDT 06/03/2025 3:05 AM EDT Cara CAPELLAN LAB BLOOD ORDERABLES Fin al Result Performing Organization Address [facility]/Va Hospital/ZIP Co de Phone Number [facility] [address] [place] [address], [place] [phone] * (ABNORMAL) Comprehensive metabolic panel (06/03/2025 2:49 AM EDT) Only the most recent of4 resultswithin the time period is included. Pathologist [facility] Sodium 136 133 - 145 mmol/L LAB CHEMISTRY METHOD 06/03/2025 3:56 AM [facility] Potassium 3.4(L) 3.5 - 5.5 mmol/L LAB CHEMISTRY METHOD 06/03/2025 3:56 AM EDT [facility] Chloride 102 96 - 110 mmol/L LAB CHEMISTRY METHOD 06/03/2025 3:56 AM EDT [facility] CO2 26 21 - 32 mmol/L LAB CHEMISTRY METHOD 06/03/2025 3:56 AM EDT [facility] Anion Gap 8 3 - 11 LAB CHEMISTRY METHOD 06/03/2025 3:56 AM EDT [facility] Glucose 246(H) 70 - 100 mg/dL LAB CHEMISTRY METHOD 06/03/2025 3:56 AM [facility] BUN 18 5 - 25 mg/dL LAB CHEMISTRY METHOD 06/03/2025 3:56 AM [facility] Creatinine 0.79 0.50 - 1.10 mg/dL LAB CHEMISTRY METHOD 06/03/2025 3:56 AM [facility] eGFR 93 >=60 mL/min/1. 73m2 LAB CHEMISTRY METHOD 06/03/2025 3:56 AM [facility] Comment:Calculation based on the Chronic Kidney Disease Epidemiology Collaboration (CKD-EPI) equation refit without adjustment for race. BUN/Creatinine Ratio 22.8 LAB CHEMISTRY METHOD 06/03/2025 3:56 AM [facility] Calcium 9.2 8.5 - 10.5 mg/dL LAB CHEMISTRY METHOD 06/03/2025 3:56 AM [facility] AST (SGOT) 16 10 - 42 unit/L LAB CHEMISTRY METHOD 06/03/2025 3:56 AM [facility] ALT (SGPT) 28 10 - 60 unit/L LAB CHEMISTRY METHOD 06/03/2025 3:56 AM [facility] Alkaline Phosphatase 219(H) 42 - 121 unit/L LAB CHEMISTRY METHOD 06/03/2025 3:56 AM [facility] Total Protein 6.7 6.0 - 8.0 g/dL LAB CHEMISTRY METHOD 06/03/2025 3:56 AM [facility] Albumin 3.8 3.2 - 5.0 g/dL LAB CHEMISTRY METHOD 06/03/2025 3:56 AM [facility] Total Bilirubin 0.2 0.0 - 1.4 mg/dL LAB CHEMISTRY METHOD 06/03/2025 3:56 AM [facility] Blood Venous blood specimen / Unknown Venipuncture / Unknown 06/03/2025 2:49 AM EDT 06/03/2025 3:05 AM EDT Cara CAPELLAN LAB BLOOD ORDERABLES Fin al Result Performing Organization Address [facility] Hospital/ZIP Co de Phone Number [facility] [address] [place] [address], [place] [phone] * , Urine (05/18/2025 7:00 PM EDT) Pathologist [facility] Preg Test, Ur Negative Negative 05/18/2025 7:43 PM EDT [facility] Urine Urine specimen obtained by clean catch procedure / Unknown Non-blood Collection / Unknown 05/18/2025 7:00 PM EDT 05/18/2025 7:13 PM EDT [facility] URINE ORDERABLES Final Re sult Performing Organization Address [facility] Hospital/ZIP Co de Phone Number [facility] [address] [place] [address], [place] [phone] * hCG, serum, qualitative (05/18/2025 7:00 PM EDT) [facility] hCG Qual Negative Negative 05/18/2025 8:31 PM EDT [facility] Blood Venous blood specimen / Unknown Venipuncture / Unknown 05/18/2025 7:00 PM EDT 05/18/2025 7:14 PM EDT [facility] BLOOD ORDERABLES Final Re sult Performing Organization Address City/Va Hospital/ZIP Co de Phone Number [facility] [address] [place] [address], [place] [phone] * ECG-Annotated (05/04/2025) Only the most recent [...] GEMUSE QTc 455 ms GEMUSE P Wave [place] 58 degrees GEMUSE R [place] 45 degrees GEMUSE T [place] 62 degrees GEMUSE ECG Interpretation Normal sinus [...] EXPIRATION DATE POC 11/12/17 LOT NUMBER POC [id number] Urine Urine specimen obtained by clean catch procedure / Unknown 05/02/2025 9:43 PM EDT Karolina Gracia MD POINT OF CARE TEST ENTER/EDIT ORDERABLES Final Result * Pap smear (04/22/2024) 04/22/2024 Narrative HISTORICAL TESTING LAB RESULTING AGENCY - 04/28/2024 11:46 AM EDT [id number] THINPREP PAP, IMAGED: NEGATIVE FOR SQUAMOUS INTRAEPITHELIAL [...] Documents on File Type Date Recorded 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
[2025-06-16 19:39] VITALS: BP 131/69; PULSE 68; RESP 14; TEMP 36.6; O2SAT 99
== END 2025-06-16 19:42 | disposition home or self-care (01) ==
PROVIDERS: Physician Assistant; Emergency Provider Emergency Medicine; PCP Nurse Practitioner Family
DX: R44.0 Auditory hallucinations (principal); R44.1 Visual hallucinations; I10 Essential (primary) hypertension; E11.9 Type 2 diabetes mellitus without complications; F60.3 Borderline personality disorder; F43.10 Post-traumatic stress disorder, unspecified; T14.8XXA Other injury of unspecified body region, initial encounter; X78.0XXA Intentional self-harm by sharp glass, initial encounter; Y93.9 Activity, unspecified; Y92.9 Unspecified place or not applicable; Y99.9 Unspecified external cause status; Z79.899 Other long term (current) drug therapy
CPT/HCPCS: 36415; 80053; 80307; 81001; 81025; 85025; 99285; S9485

== ENCOUNTER 2025-06-17 16:49 | Outpatient (BNV) | payer MEDICARE, MEDICAID, SELFPAY | END 2025-06-20 15:13 | PROVIDERS: Admitting Provider Psychiatry & Neurology Psychiatry; PCP Nurse Practitioner Family; Visit Provider Internal Medicine Cardiovascular Disease | DX: R00.0 Tachycardia, unspecified (principal) | CPT/HCPCS: 93010 ==

== ENCOUNTER 2025-06-17 16:49 | Inpatient (IN) | payer MEDICARE, MEDICAID, SELFPAY ==
--- OUTSIDE RECORDS SUMMARY | 2025-06-17 03:00 | XMS_ITS | Encounter Summary ---
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 EDT documented in this encounter Results * POC , urine manually resulted (06/17/2025 6:27 AM EDT) Pathologist [facility] [place] HCG, Ur POC Negative Negative POC hCG Int QC Pass? Yes Yes EXPIRATION DATE POC 12/02/2026 LOT NUMBER POC [id number] Urine Urine specimen obtained by clean catch procedure / Unknown 06/17/2025 6:27 AM EDT Aureliano Crump MD POINT OF CARE TEST ENTER /EDIT ORDERABLES Final Result * (ABNORMAL) CBC auto differential (06/17/2025 3:38 AM EDT) [facility] WBC 9.2 4.8 - 10.8 K/mcL LAB HEMETOLOGY METHOD 06/17/2025 3:56 AM EDT [facility] RBC 4.10 3.80 - 4.80 M/mcL LAB HEMETOLOGY METHOD 06/17/2025 3:56 AM EDT [facility] Hemoglobin 12.6 11.5 - 16.0 g/dL LAB [facility]OLOG[facility]17[facility]25 [facility] Hematocrit 38.1 35.0 - 47.0 % LAB HEMETOLOGY METHOD 06/17/2025 3:56 AM [facility] MCV 93.4 79.0 - 98.0 FL LAB HEMETOLOGY METHOD 06/17/2025 3:56 AM [facility] MCH 30.9 27.0 - 32.0 pcg LAB HEMETOLOGY METHOD 06/17/2025 3:56 AM [facility] MCHC 33.1 32.0 - 37.0 g/dL LAB HEMETOLOGY METHOD 06/17/2025 3:56 AM [facility] RDW 12.9 11.0 - 15.0 % LAB HEMETOLOGY METHOD 06/17/2025 3:56 AM [facility] Platelets 332 130 - 400 K/mcL LAB HEMETOLOGY METHOD 06/17/2025 3:56 AM [facility] MPV 9.1 7.0 - 11.0 FL LAB HEMETOLOGY METHOD 06/17/2025 3:56 AM [facility] NRBC 0.0 <1.0 % LAB HEMETOLOGY METHOD 06/17/2025 3:56 AM [facility] NRBC Absolute 0.00 <0.10 K/mcL LAB HEMETOLOGY METHOD 06/17/2025 3:56 AM [facility] Neutrophils Relative 67.4 % LAB HEMETOLOGY METHOD 06/17/2025 3:56 AM [facility] Lymphocytes Relative 18.7 % LAB HEMETOLOGY METHOD 06/17/2025 3:56 AM [facility] Monocytes Relative 9.6 % LAB HEMETOLOGY METHOD 06/17/2025 3:56 AM [facility] Eosinophils Relative 3.1 % LAB HEMETOLOGY METHOD 06/17/2025 3:56 AM EDT [facility] Basophils Relative 0.3 % LAB HEMETOLOGY METHOD 06/17/2025 3:56 AM EDT [facility] Immature Granulocytes Relative 0.9 % LAB HEMETOLOGY METHOD 06/17/2025 3:56 AM EDT [facility] Neutrophils Absolute 6.21 1.50 - 7.00 K/mcL LAB HEMETOLOGY METHOD 06/17/2025 3:56 AM EDT [facility] Lymphocytes Absolute 1.72 1.00 - 5.00 K/mcL LAB HEMETOLOGY METHOD 06/17/2025 3:56 AM EDT [facility] Monocytes Absolute 0.88 0.20 - 1.00 K/mcL LAB HEMETOLOGY METHOD 06/17/2025 3:56 AM EDT [facility] Eosinophils Absolute 0.29 0.00 - 0.50 K/mcL LAB HEMETOLOGY METHOD 06/17/2025 3:56 AM EDT [facility] Basophils Absolute 0.03 0.00 - 0.20 K/mcL LAB HEMETOLOGY METHOD 06/17/2025 3:56 AM EDT [facility] Immature Granulocytes Absolute 0.08(H) 0.00 - 0.03 K/mcL LAB HEMETOLOGY METHOD 06/17/2025 3:56 AM EDT [facility] Blood Venous blood specimen / Unknown Venipuncture / Unknown 06/17/2025 3:38 AM EDT 06/17/2025 3:49 AM EDT Cara CAPELLAN LAB BLOOD ORDERABLES Fin al Result [facility] [address] [place] [address], * Salicylate level (06/17/2025 3:38 AM EDT) Salicylate Level 5.3 2.0 - 29.0 mg/dL LAB CHEMISTRY METHOD 06/17/2025 4:17 AM EDT [facility] Blood Venous blood specimen / Unknown Venipuncture / Unknown 06/17/2025 3:38 AM EDT 06/17/2025 3:49 AM EDT Cara CAPELLAN LAB BLOOD ORDERABLES Fin al Result Performing Organization Address [facility] de Phone Number [facility] [address] [place] [address], [place] [phone] * (ABNORMAL) Acetaminophen level (06/17/2025 3:38 AM EDT) Acetaminophen Level <2.0(L) 10.0 - 30.0 mcg/mL LAB CHEMISTRY METHOD 06/17/2025 4:15 AM EDT [facility] Blood Venous blood specimen / Unknown Venipuncture / Unknown 06/17/2025 3:38 AM EDT 06/17/2025 3:49 AM EDT Cara CAPELLAN LAB BLOOD ORDERABLES Fin al Result Performing Organization Address [facility] de Phone Number [facility] [address] [place] [address], [place] [phone] * Ethanol (06/17/2025 3:38 AM EDT) Ethanol Level <3 0 - 10 mg/dL LAB CHEMISTRY METHOD 06/17/2025 4:15 AM EDT [facility] Blood Venous blood specimen / Unknown Venipuncture / Unknown 06/17/2025 3:38 AM EDT 06/17/2025 3:49 AM EDT Cara CAPELLAN LAB BLOOD ORDERABLES Fin al Result Performing Organization Address City/[facility] de Phone Number [facility] [address] [place] [address], [place] [phone] * (ABNORMAL) Comprehensive metabolic panel (06/17/2025 3:38 AM EDT) Sodium 136 133 - 145 mmol/L LAB CHEMISTRY METHOD 06/17/2025 4:15 AM EDT [facility] Potassium 3.4(L) 3.5 - 5.5 mmol/L LAB CHEMISTRY METHOD 06/17/2025 4:15 AM T [facility] Chloride 100 96 - 110 mmol/L LAB CHEMISTRY METHOD 06/17/2025 4:15 AM [facility] CO2 28 21 - 32 mmol/L LAB CHEMISTRY METHOD 06/17/2025 4:15 AM [facility] Anion Gap 8 3 - 11 LAB CHEMISTRY METHOD 06/17/2025 4:15 AM [facility] Glucose 182(H) 70 - 100 mg/dL LAB CHEMISTRY METHOD 06/17/2025 4:15 AM [facility] BUN 10 5 - 25 mg/dL LAB CHEMISTRY METHOD 06/17/2025 4:15 AM [facility] Creatinine 0.82 0.50 - 1.10 mg/dL LAB CHEMISTRY METHOD 06/17/2025 4:15 AM [facility] eGFR 89 >=60 mL/min/1. 73m2 LAB CHEMISTRY METHOD 06/17/2025 4:15 AM [facility] Comment:Calculation based on the Chronic Kidney Disease Epidemiology Collaboration (CKD-EPI) equation refit without adjustment for race. BUN/Creatinine Ratio 12.2 LAB CHEMISTRY METHOD 06/17/2025 4:15 AM [facility] Calcium 8.9 8.5 - 10.5 mg/dL LAB CHEMISTRY METHOD 06/17/2025 4:15 AM [facility] AST (SGOT) 15 10 - 42 unit/L LAB CHEMISTRY METHOD 06/17/2025 4:15 AM EDT [facility] ALT (SGPT) 31 10 - 60 unit/L LAB CHEMISTRY METHOD 06/17/2025 4:15 AM T [facility] Alkaline Phosphatase 198(H) 42 - 121 unit/L LAB CHEMISTRY METHOD 06/17/2025 4:15 AM T [facility] Total Protein 6.7 6.0 - 8.0 g/dL LAB CHEMISTRY METHOD 06/17/2025 4:15 AM EDT [facility] Albumin 3.8 3.2 - 5.0 g/dL LAB CHEMISTRY METHOD 06/17/2025 4:15 AM [facility] Total Bilirubin 0.3 0.0 - 1.4 mg/dL LAB CHEMISTRY METHOD 06/17/2025 4:15 AM [facility] Blood Venous blood specimen / Unknown Venipuncture / Unknown 06/17/2025 3:38 AM EDT 06/17/2025 3:49 AM EDT Cara CAPELLAN LAB BLOOD ORDERABLES Fin al Result [facility] [address] [place] [address], * Methadone, urine (06/17/2025 3:20 AM EDT) [facility] Methadone Screen, Urine Negative Negative LAB CHEMISTRY METHOD 06/17/2025 4:01 AM EDT [facility] Comment: Assay cutoff 300 ng/mL Semi-quantitative assay for screening purposes only. Unconfirmed screening result should not be used for non-medical purposes. *ALTERNATE METHOD CONFIRMATION DONE UPON REQUEST ONLY* Urine Urine specimen obtained by clean catch procedure / Unknown Non-blood Collection / Unknown 06/17/2025 3:20 AM EDT 06/17/2025 3:25 AM EDT Cara Yaquelincarlos CAPELLAN LAB URINE ORDERABLES Fin al Result Performing Organization Address City/[facility]/ZIP Co de Phone Number [facility] [address] [place] [address], * Phencyclidine, urine (06/17/2025 3:20 AM EDT) PCP Scrn, Ur Negative Negative LAB CHEMISTRY METHOD 06/17/2025 4:01 AM EDT [facility] Comment: Assay cutoff 25 ng/mL Semi-quantitative assay for screening purposes only. Unconfirmed screening result should not be used for non-medical purposes. *ALTERNATE METHOD CONFIRMATION DONE UPON REQUEST ONLY* Urine Urine specimen obtained by clean catch procedure / Unknown Non-blood Collection / Unknown 06/17/2025 3:20 AM EDT 06/17/2025 3:25 AM EDT [facility] Yaquelincarlos Ozuna NM LAB URINE ORDERABLES Fin al Result [facility] [address] [place] [address], [place] [phone] * Buprenorphine screen, urine (06/17/2025 3:20 AM EDT) Buprenorphine Screen Urine Negative Negative LAB CHEMISTRY METHOD 06/17/2025 4:04 AM EDT [facility] Urine Urine specimen obtained by clean catch procedure / Unknown Non-blood Collection / Unknown 06/17/2025 3:20 AM EDT 06/17/2025 3:25 AM EDT Narrative [facility] - 06/17/2025 4:04 AM EDT Assay cutoff 5 ng/mL Semi-quantitative assay for screening purposes only. Unconfirmed screening result should not be used for non-medical purposes. *ALTERNATE METHOD CONFIRMATION DONE UPON REQUEST ONLY* &[employer] TIMI LAB URINE ORDERABLES Fin al Result [facility] [address] [place] [address], * Drug abuse screen 8a panel, urine (06/17/2025 3:20 AM EDT) Amphetamine Screen, Ur Negative Negative LAB CHEMISTRY METHOD 06/17/2025 4:05 AM EDT [facility] Comment:Certain OTC medicati ons containing ephedrine, phenylephrine, pseudoephedrine and phenylpropanolamine can cause false positive results. Barbiturate Screen, Ur Negative Negative LAB CHE[facility]STR[facility]25 [facility] Benzodiazepine Screen, Ur Negative Negative LAB CHEMISTRY METHOD 06/17/2025 4:05 AM [facility] Cocaine Screen, Ur Negative Negative LAB CHEMISTRY METHOD 06/17/2025 4:05 AM [facility] Opiate Screen, Ur Negative Negative LAB CHEMISTRY METHOD 06/17/2025 4:05 AM [facility] Cannabinoid (THC) Screen, Ur Negative Negative LAB CHEMISTRY METHOD 06/17/2025 4:05 AM [facility] Comment:Specimens from patie nts taking pantoprazole sodium (Protonix) have been shown to produce false positive results. Oxycodone Screen, Ur Negative Negative LAB CHEMISTRY METHOD 06/17/2025 [facility] Fentanyl, Ur Negative Negative LAB CHEMISTRY METHOD 06/17/2025 4:05 AM [facility] Urine Urine specimen obtained by clean catch procedure / Unknown Non-blood Collection / Unknown 06/17/2025 3:20 AM EDT 06/17/2025 3:25 AM EDT Narrative [facility] - 06/17/2025 4:05 AM EDT Assay cutoffs: Amphetamines 1000 ng/mL Barbiturates 200 ng/mL Benzodiazepines 200 ng/mL Cocaine 300 ng/mL Fentanyl 1 ng/mL Opiates 300 ng/mL Oxycodone 100 ng/mL THC 50 ng/mL Semi-quantitative assay for screening purposes only. Unconfirmed screening result should not be used for non-medical purposes. *ALTERNATE METHOD CONFIRMATION DONE UPON REQUEST ONLY* Cara CAPELLAN LAB URINE ORDERABLES Fin al Result [facility] [address] [place] [address], documented in this encounter Visit Diagnoses Diagnosis Auditory hallucinations- Primary Hallucinations Intentional self-harm by sharp object, initial encounter ([facility] V24, [facility] V28) documented in this encounter Administered Medications Inactive Administered Medications - up to 3 most recent administrations Medication Order MAR Action Action Date Dose Rate Site diphenhydrAMINE (BENADRYL) capsule 50 mg 50 mg, oral, Once, On Sun06/17/25 at 0312, For 1 dose Given 06/17/2025 4:11 AM EDT 50 mg documented in this encounter Discontinued Medications Medication Sig Discontinue Reason Start Date End Da te albuterol sulfate 90 mcg/actuation aerosol powdr breath activated Inhale 90 mcg by mouth every 6 (six) hours if needed (wheezing). Alternate therapy 06/11/2024 06/17/2025 cloZAPine (CLOZARIL) 25 mg tablet Take 4 tablets (100 mg total) by mouth at bedtime. Alternate therapy 01/15/2024 06/17/2025 LORazepam (ATIVAN) 1 mg tablet Take 0.5 tablets (0.5 mg total) by mouth 2 (two) times a day if needed for anxiety. Alternate therapy 11/14/2019 06/17/2025 mirtazapine (REMERON) 7.5 mg tablet Take 2 tablets (15 mg total) by mouth at bedtime. Alternate therapy 05/03/2023 06/17/2025 documented as of this encounter Historical Medications * This list may reflect changes made after this encounter. mirtazapine (REMERON) 15 mg tablet Take 1 tablet (15 mg total) by mouth at bedtime. 05/18/2025 LORazepam (ATIVAN) 0.5 mg tablet Take 1 tablet (0.5 mg total) by mouth 2 (two) times a day if needed for anxiety. 0900 + 1600 05/25/2025 cloZAPine (CLOZARIL) 200 mg tablet Take 1 tablet (200 mg total) by mouth 1 (one) time each day. 05/18/2025 albuterol HFA (PROAIR HFA ; PROVENTIL HFA ; VENTOLIN HFA) 90 mcg/actuation inhaler Inhale 1 puff by mouth every 6 (six) hours if needed for wheezing. 03/24/2025 glycopyrrolate (ROBINUL) 1 mg tablet Take 1 tablet (1 mg total) by mouth 2 (two) times a day. 06/10/2025 nystatin (MYCOSTATIN) cream Apply 1 Application topically 2 (two) times a day. 06/01/2025 hydroCHLOROthiaz bernadette 12.5 mg tablet Take 1 tablet (12.5 mg total) by mouth 1 (one) time each day. 06/01/2025 ibuprofen (ADVIL,MOTRIN) 600 mg tablet 05/01/2025 added in this encounter Active and Recently Administered Medications Times are shown in EDT. Scheduled Medication Order 06/15/2025 06/16/2025 06/17/2025 diphenhydrAMINE (BENADRYL) capsule 50 mg (COMPLETED) 50 mg, oral, Once, On Sun06/17/25 at 0312, For 1 dose 0411 (Given - Provid er: Val Larson RN) documented in this encounter Orders Medications Ordered That Dionisio ht Not Have Been Administered Count Last Ordered Date First Ordered Date diphenhydrAMINE (BENADRYL) capsule 50 mg 1 06/17/2025 Diet Count Last Ordered Date First Orde red Date ADULT DIET 1 06/17/2025 Consult Count Last Ordered Date First Orde red Date IP CONSULT TO MANAGER PROJECT MANAGEMENT 1 06/17/2025 Precaution Count Last Ordered Date First Orde red Date SUICIDE PRECAUTIONS 1 06/17/2025 Privilege Level Count Last Ordered Date First O rdered Date PATIENT SILK HANGER 1 06/17/2025 documented in this encounter Care Teams Tangled Yarn Worker Relationship Specialty Start Date End Date Maribel Marquez [address] [place] [id number] PCP - General 09/08/24 documented as of this encounter
--- OUTSIDE RECORDS SUMMARY | 2025-06-17 18:02 | XMS_ITS | Encounter Summary ---
Author Organization [facility] Address [address] [place] [address] Care Team Providers Care Locomotive Firer Name Role Phone Maribel Marquez Primary Care Provider [phone] Encounter Details Date Type Department Care Team (Late st Contact Info) Description 05/25/[address] [facility] [address] [facility] [place] [address] Wanda Cleveland NP [address] [place] [phone] Other detention (current) drug therapy Social History Tobacco Use [...] of this encounter Visit Diagnoses Diagnosis Other detention (current) drug therapy documented in this encounter Care Teams Locomotive Firer Relationship Specialty Start Date End Date Maribel Marquez [address] [place] [id number] PCP - General 09/08/24 documented as of this encounter
--- OUTSIDE RECORDS SUMMARY | 2025-06-17 18:02 | XMS_ITS | Clinical Summary ---
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 Relationship Specialty Start Date End Date Maribel Marquez [address] [place] [address] PCP - General 09/08/24
--- OUTSIDE RECORDS SUMMARY | 2025-06-17 18:02 | XMS_ITS | Clinical Summary ---
Author Organization [facility] Address [address] [address] Phone Care Team Providers Care Color Maker Name Role Phone Maribel Marquez NP Primary Care Provider + Allergies Active Allergy Reactions Criticality Noted Date Comments Azithromycin 05/18/2023 Codeine 04/21/2009 Unknown reaction Cash Other (See Comments) 02/27/2013 pt reports 01/17/13 [...] EST) SODIUM 140 136 - 145 mmol/L [facility] POTASSIUM 3.7 3.4 - 5.1 mmol/L [facility] CHLORIDE 102 98 - 107 mmol/L [facility] CO2 23 22 - 31 mmol/L [facility] BUN 12 6 - 23 mg/dL [facility] CREATININE 0.63 0.50 - 1.20 mg/dL [facility] GLUCOSE 160(H) 70 - 100 mg/dL [facility] CALCIUM 9.2 8.8 - 10.7 mg/dL [facility] EGFR 111 >59 mL/min/1.7 3m2 [facility] Comment:Estimated glomerular filtration rate calculated using the CKD-EPI refit equation. ANION GAP 15 7 - 17 mmol/L [facility] Blood 08/24/2024 3:05 AM EST 08/24/2024 3:15 AM EST Parvez Duenas MD, MPH LAB BLOOD ORDERABLES F inal Result [facility] [address] [place] [address] from Last 3 Months or Most Recently Relevant to Health Maintenance Insurance [facility] MEDIC[facility] PART [facility] & B [facility] [place] [facility] [place] [facility] MEDICARE PART A & B Care Teams Color Maker Relationship Specialty Start Date End Date Maribel Marquez NP [address] [place] [address] PCP - General Nurse Practitioner 04/02/24 Additional Source Comments The information contained in this document represents components of the legal health record. It is not the complete legal health record.[facility]
[2025-06-17 18:09] VITALS: BP 151/97; PULSE 98; RESP 18; TEMP 36.9; O2SAT 95; BMI 39.9
[2025-06-17 20:00] VITALS: BP 141/64; PULSE 81; RESP 18; TEMP 36.5; O2SAT 97
[2025-06-18 08:00] VITALS: BP 142/83; PULSE 93; RESP 16; TEMP 36.4; O2SAT 97
--- NOTE | 2025-06-18 08:30 | HO.PM.IMCN ---
History of Present Illness Data of Consult Service Date: 06/18/25 Primary Care Provider: Maribel Marquez NP HPI Reason for consult: Medical consult 49-year-old female with a past medical history of PTSD, depression, GERD, type 2 diabetes, borderline personality disorder, chronic auditory and visual hallucinations, chronic suicidal ideation presented to the ED with increased suicidal thoughts and intentional self harm. She is admitted to inpatient psychiatric unit for continued care. She was medically cleared for admission by [facility]. CBC with differential with no significant abnormality, no leukocytosis, no acute anemia or platelet abnormalities, comprehensive metabolic panel with no metabolic derangement or evidence of hepatic or renal injury. EKG demonstrated sinus tach with no ST elevations On exam she denies any headache. She denies any shortness of breath, dizziness, lightheadedness or any other concerning symptoms. Patient reports she has been taking her medications as an outpatient including her blood pressure pills and medications for diabetes. She has no medical concerns. Review of Systems Review of Systems: Denies any shortness of breath, chest pain, dizziness, lightheadedness, abdominal pain or discomfort, nausea vomiting or diarrhea PMFSH Medical History Suicidal ideation Asthma Suicidal ideation MDD (major depressive disorder), recurrent episode, severe Chest pain Acute anxiety COVID-19 Full body hives Major depression Dizziness Suicide attempt UTI (urinary tract infection) Acetaminophen overdose COVID History of attempted suicide History of non-suicidal self-harm Hypomagnesemia Suicide attempt Suicide attempt by acetaminophen overdose Acetaminophen overdose Depression Diabetes type 2, controlled Borderline personality disorder PTSD (post-traumatic stress disorder) Overdose GERD (gastroesophageal reflux disease) Mood disorder Hyperlipidemia Bronchitis Social History Household Members: Other Household Members Other:: [facility] members Housing: Other Housing Other:: Group Do you presently have visiting nurse or other home services: Yes ([facility] staff manage meds) Unable to assess alcohol history related to: Unknown Alcohol intake: never Comment: sitter in room Patient Tobacco Use Status: Current everyday Tobacco user Tobacco use type: Cigarette Cigarette Packs Per Day: 1 Cigarettes Per Day: 20.0 Years Smoked: 23 e-Cigarette/Vaping Use: Never Used Second Hand Smoke Exposure: No Substance Use Type: Caffiene Advance Directives: No Advance Directives Information Provided: Yes service: No Current occupational status: unemployed and disabled Sexual orientation: Straight/Heterosexual Meds Allergies Allergy/AdvReac Type Severity Reaction Status Date / Time azithromycin (AZITHROMYCIN) Allergy Severe Rash Verified 06/16/25 16:06 Fish Containing Products Allergy Severe Anaphylaxis Verified 06/16/25 16:06 codeine (Codeine) Allergy Intermediate Rash Verified 06/16/25 16:06 Penicillins Allergy Intermediate Rash Verified 06/16/25 16:06 prednisone (Prednisone) Allergy Intermediate Rash Verified 06/16/25 16:06 Sulfa (Sulfonamide Allergy Intermediate Rash Verified 06/16/25 16:06 Antibiotics) (Sulfa (Sulfonamides)) ziprasidone (From Geodon) Allergy Intermediate dysuria, Verified 06/16/25 16:06 rash lithium Allergy Unknown Rash Verified 06/16/25 16:06 Active Medications: Current Medications Acetaminophen (Acetaminophen 325 Mg Tablet) 650 mg PO Q6H PRN PRN Reason: Headache/Pain, Scale 1-10 Al Hydroxide/Mg Hydroxide (Magnesium Hydrox/Alum Hydrox 30 Ml Oral.Susp) 30 ml PO Q6H PRN PRN Reason: Heartburn/Nausea Hydroxyzine HCl (Hydroxyzine Hcl 25 Mg Tablet) 25 mg PO Q6H PRN PRN Reason: mild anxiety Last Admin: 06/17/25 17:55 Dose: 25 mg Magnesium Hydroxide (Milk Of Magnesia 30 Ml Oral.Susp) 30 ml PO DAILY PRN PRN Reason: Constipation Nicotine (Nicotine 21 Mg Patch.Td24) 21 mg TRANSDERMA DAILY PRN PRN Reason: smoking cessation Nicotine Polacrilex (Nicotine Polacrilex 2 Mg Gum) 4 mg BUCCAL Q2H PRN PRN Reason: Nicotine Cravings Olanzapine (Olanzapine 5 Mg Tablet) 5 mg PO TID PRN PRN Reason: agitation Last Admin: 06/17/25 17:55 Dose: 5 mg Trazodone HCl (Trazodone Hcl 50 Mg Tablet) 50 mg PO BEDTIME MRX1 PRN PRN Reason: Insomnia Home Medications ?Medication ?Instructions ?Recorded ?Confirmed ?Last Taken ?Type albuterol sulfate 90 mcg/actuation 2 puff inhalation Q6H PRN Wheezing 06/24/24 06/18/25 05/22/25 History aerosol inhaler clozapine 100 mg tablet 200 mg PO BEDTIME 06/24/24 06/18/25 06/15/25 History prazosin 2 mg capsule 4 mg PO BEDTIME 06/24/24 06/18/25 06/15/25 History metformin 500 mg tablet 500 mg PO BID 07/15/24 06/18/25 06/16/25 History atorvastatin 10 mg tablet 10 mg PO DAILY 05/23/25 06/18/25 06/16/25 History ferrous sulfate 325 mg (65 mg 325 mg PO BID 05/23/25 06/18/25 06/16/25 History iron) tablet fluticasone fur. 200 mcg-umeclid 1 ea inhalation DAILY 05/23/25 06/18/25 06/16/25 History 62.5 mcg-vilant 25 mcg inhalat.powder (Trelegy Ellipta) glycopyrrolate 1 mg tablet 1 mg PO BID 05/23/25 06/18/25 06/16/25 History ibuprofen 600 mg tablet 600 mg PO Q6H PRN Mild Pain (Scale 05/23/25 06/18/25 06/16/25 History Score 1-4) lorazepam 0.5 mg tablet 0.5 mg PO BID PRN Anxiety 05/23/25 06/18/25 06/16/25 History mirtazapine 15 mg tablet 15 mg PO BEDTIME 05/23/25 06/18/25 06/15/25 History montelukast 10 mg tablet 10 mg PO DAILY 05/23/25 06/18/25 06/16/25 History ascorbic acid (vitamin C) 500 mg 500 mg PO BID 06/18/25 06/18/25 Unknown History tablet (Vitamin C) benztropine 1 mg tablet 1 mg PO BID 06/18/25 06/18/25 Unknown History buspirone 10 mg tablet 10 mg PO BID 06/18/25 06/18/25 Unknown History famotidine 20 mg tablet 20 mg PO TIDWM 06/18/25 06/18/25 Unknown History fluoxetine 40 mg capsule 80 mg PO DAILY 06/18/25 06/18/25 Unknown History fluphenazine HCl 10 mg tablet 15 mg PO BID 06/18/25 06/18/25 Unknown History naproxen 500 mg tablet 500 mg PO BID PRN Pain (Scale 06/18/25 06/18/25 Unknown History Score 4-6) pantoprazole 40 mg tablet,delayed 40 mg PO BID 06/18/25 06/18/25 Unknown History release temazepam 15 mg capsule mg PRN Insomnia 06/18/25 Unknown History Physical Exam Vital Signs and Narrative: Vital Signs: Last Vital Signs Temp 97.7 F 06/17/25 20:00 Pulse 81 06/17/25 20:00 Resp 18 06/17/25 20:00 BP 141/64 H 06/17/25 20:00 Pulse Ox 97 06/17/25 20:00 O2 Del Method Room Air 06/17/25 20:00 BMI result Body Mass Index 39.9 CONST: Alert and oriented, in NAD. Well nourished. Sleepy HEENT: Normocephalic, atraumatic, MMM, Eyes clear, Neck supple RESP: Lungs clear, RRR even and regular HEART:,RRR, S1, S2. No murmur, no edema GI:Abdomen Soft NT, ND. + BS times four :Deferred SKIN: Warm dry and intact, no visible lesions or rashes NEURO:CN II-XII Intact bilaterally, Sensation intact. Speech clear PSYCH: Normal affect, alert and cooperative. Assessment and Plan (1) Hypertension: Status: Acute Plan 49-year-old female past medical history of hypertension, type 2 diabetes, major depressive disorder, PTSD, history of suicidal ideation, borderline personality disorder, and GERD, presented to the ED with hallucinations and self harm. She is admitted to inpatient psych for further care. Major depressive disorder/ PTSD/borderline personality disorder/history of suicidal ideation/auditory and visual hallucinations Treatment per psychiatric team Hypertension/HLD Continue amlodipine 7.5 mg daily, HCTZ 12.5 mg daily adjusted last admission Follow labs Continue statin Type 2 diabetes Continue metformin Last A1c in May was 6.2 Thank you for allowing me to participate in the care of this patient. Please consult with any acute concerns or issues.
--- NOTE | 2025-06-18 08:36 | PC.NURSE ---
Received care of patient at 1930, 06/17/25. 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 She said she was safe, denied any current SI, HI, AVH. Patient allowed to go back to sleep.
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
[2025-06-18] MEDS: Ferrous Sulfate 324 MG TABLET.DR PO ×2 (09:52→16:58)
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
[2025-06-18 20:00] VITALS: BP 157/94; PULSE 110; RESP 18; TEMP 37; O2SAT 96
[2025-06-19 08:23] LABS: Hemoglobin A1C 169.4350 umol/L; Total Hemoglobin (HGBA1C) 3677.9071 umol/L
[2025-06-19] MEDS: Ferrous Sulfate 324 MG TABLET.DR PO ×2 (08:25→17:48)
[2025-06-19] MEDS: Fluticasone/Umeclidinium/Vilanterol 100/62.5/25 BLST.W.DEV 1 PUFF INHALE (08:30)
[2025-06-19 08:31] VITALS: BP 162/68; PULSE 93; RESP 20; TEMP 35.9; O2SAT 92
[2025-06-19 08:41] LABS: Alanine Aminotransferase 21 U/L (0-31); Albumin Level 4.3 g/dL (3.5-5.0); Alkaline Phosphatase 156 U/L (39-117); Anion Gap 16 (12-20); Aspartate Amino Transferase 23 U/L (5-31); Blood Urea Nitrogen 10 mg/dL (9-16); Calcium 9.7 mg/dL (8.4-10.2); Carbon Dioxide 25 mmol/L (22-29); Chloride 103 mmol/L (96-108); Cholesterol 197 mg/dL (<200); Creatinine Clr Calc Pharmacy 131.2; Estimated Glomerular Filt Rate > 60; HDL Cholesterol 39 mg/dL (>40); Potassium 4.2 mmol/L (3.3-5.1); Sodium 140 mmol/L (135-145); Total Protein 6.9 g/dL (6.5-8.0); Triglycerides 311 mg/dL (<150)
--- NOTE | 2025-06-19 15:20 | P.PNPSI_ITS ---
Subjective Subjective Date of Service: 06/19/25 Reason For Visit: F60.3, F43.10 Subjective Notes: Conditional Voluntary Healthcare Proxy: No Guardianship: No Medical Problems Affecting Mental Status: No Interim History: Medical record and nursing notes reviewed; case discussed during rounds with team/nursing staff, and met with patient for supportive therapy/psychoeducation, as well as medication management. Patient slept for 9 hours, compliant with medication, except for nystatin powder/cream. She has not shower despite that she was encourage to do so by different staff. She has not attempted to groups but have labs work done this morning. Appeared to be disheveled, unkempt hair. Agreed to take shower later on today. Denies safety concerns, voices at baseline. No self-harm behavior, no SI. Isolated herself. Encouraged to be out and attended groups. She would like to be discharged by Sunday back to skilled nursing. Medication Compliance: Yes (except nystatin cream/powder ) Side effects from medications: No (Denies but could have some drooling and hand tremors ) Attending Groups: No Review of Systems Acute medical concerns: No Medical Review of Systems: unchanged Review of Systems Review of Systems Constitutional: Denies fatigue and Denies fever(s) Cardiovascular: Denies chest pain and Denies dyspnea Respiratory: Denies dyspnea Gastrointestinal: Denies abdominal pain Psychiatric: denies suicidal ideation Endocrine: Denies fatigue Yes all other systems are reviewed and are negative Mental Status Exam Mental Status Exam Narrative: Patient is alert and oriented; behavior is calm and cooperative with anxiety and depression; patient is not in distress; dressed in same one casual attire with unkempt hair and poor hygiene;; eye contact appropriate; Speech is normal rate, soft in volume and prosody and not pressured; no psychomotor agitation/retardation present; thought process is organized and goal directed; Thought content is WNL, pertinent to relevant topics and without any delusional content, paranoid ideation or grandiosity; denies any SI/SIB/HI. Denies AH but not command in nature. Patient's insight and judgment improved. Diagnostics Vital Signs (24Hr): Vital Signs - 24 hr 06/18/25 20:00 06/19/25 08:31 Temperature 98.6 F 96.6 F L Pulse Rate 110 H 93 Respiratory Rate 18 20 Blood Pressure 157/94 H 162/68 H Pulse Oximetry 96 92 Oxygen Delivery Method Room Air Room Air BMI result Body Mass Index 39.9 Labs 06/19/25 08:00 Labs: Laboratory Results - last 48 hr 06/19/25 08:00 Sodium 140 Potassium 4.2 D Chloride 103 Carbon Dioxide 25 Anion Gap 16 BUN 10 Creatinine 0.65 Estim Creat Clear Calc 131.2 Estimated GFR > 60 Random Glucose 136 H Estimat Average Glucose 137 Hemoglobin A1c % 6.4 H Calcium 9.7 D Total Bilirubin 0.3 AST 23 ALT 21 Alkaline Phosphatase 156 H Total Protein 6.9 Albumin 4.3 Triglycerides 311 H Cholesterol 197 LDL Cholesterol, Calc 96 HDL Cholesterol 39 L TSH 0.98 Medications Medications Current Medications Acetaminophen (Acetaminophen 325 Mg Tablet) 650 mg PO Q6H PRN PRN Reason: Headache/Pain, Scale 1-10 Al Hydroxide/Mg Hydroxide (Magnesium Hydrox/Alum Hydrox 30 Ml Oral.Susp) 30 ml PO Q6H PRN PRN Reason: Heartburn/Nausea Albuterol Sulfate (Albuterol Sulfate 90 Mcg 8 Gm Inhaler) 2 puff INHALE Q6H PRN PRN Reason: wheeze Albuterol Sulfate (Albuterol Sulfate 90 Mcg 8 Gm Inhaler) 2 puff INHALE Q6H PRN PRN Reason: Wheezing Amlodipine Besylate (Amlodipine Besylate 2.5 Mg Tablet) 2.5 mg PO DAILY [facility]; Protocol Last Admin: 06/19/25 08:50 Dose: 2.5 mg Amlodipine Besylate (Amlodipine Besylate 5 Mg Tablet) 5 mg PO DAILY [facility]; Protocol Last Admin: 06/19/25 08:51 Dose: 5 mg Ascorbic Acid (Ascorbic Acid 500 Mg Tablet) 500 mg PO BID [facility] Last Admin: 06/19/25 08:25 Dose: 500 mg Atorvastatin Calcium (Atorvastatin Calcium 10 Mg Tablet) 10 mg PO DAILY [facility] Last Admin: 06/19/25 08:26 Dose: 10 mg Benztropine Mesylate (Benztropine Mesylate 1 Mg Tablet) 1 mg PO BID [facility] Last Admin: 06/19/25 08:26 Dose: 1 mg Buspirone HCl (Buspirone Hcl 10 Mg Tablet) 10 mg PO BID [facility] Last Admin: 06/19/25 08:24 Dose: 10 mg Clozapine (Clozapine 100 Mg Tablet) 200 mg PO BEDTIME [facility] Last Admin: 06/18/25 21:36 Dose: 200 mg Famotidine (Famotidine 20 Mg Tablet) 20 mg PO TIDWM [facility] Last Admin: 06/19/25 11:59 Dose: 20 mg Ferrous Sulfate (Ferrous Sulfate 324 Mg Tablet.Dr) 324 mg PO BIDWM [facility] Last Admin: 06/19/25 08:25 Dose: 324 mg Fluoxetine HCl (Fluoxetine Hcl 20 Mg Capsule) 80 mg PO DAILY [facility] Last Admin: 06/19/25 08:27 Dose: 80 mg Fluphenazine HCl (Fluphenazine Hcl 5 Mg Tablet) 15 mg PO BID [facility] Last Admin: 06/19/25 08:24 Dose: 15 mg Fluticasone/Umeclidinium/Vilanterol (Fluticasone/Umeclidinium/Vilanterol 100/62.5/25 Blst.W.Dev) 1 puff INHALE RDAILY [facility] Last Admin: 06/19/25 08:30 Dose: 1 puff Glycopyrrolate (Glycopyrrolate 1 Mg Tablet) 1 mg PO BID [facility] Last Admin: 06/19/25 08:26 Dose: 1 mg Haloperidol (Haloperidol 5 Mg Tablet) 15 mg PO BEDTIME [facility] Last Admin: 06/18/25 21:36 Dose: 15 mg Hydrochlorothiazide (Hydrochlorothiazide 12.5 Mg Tablet) 12.5 mg PO DAILY [facility]; Protocol Last Admin: 06/19/25 08:33 Dose: 12.5 mg Hydroxyzine HCl (Hydroxyzine Hcl 25 Mg Tablet) 25 mg PO Q6H PRN PRN Reason: mild anxiety Last Admin: 06/17/25 17:55 Dose: 25 mg Ibuprofen (Ibuprofen 600 Mg Tablet) 600 mg PO Q6H PRN PRN Reason: Pain, Mild (Pain Scale 1-3) Lorazepam (Lorazepam 0.5 Mg Tablet) 0.5 mg PO BID PRN PRN Reason: Anxiety Last Admin: 06/18/25 21:39 Dose: 0.5 mg Magnesium Hydroxide (Milk Of Magnesia 30 Ml Oral.Susp) 30 ml PO DAILY PRN PRN Reason: Constipation Metformin HCl (Metformin Hcl 500 Mg Tablet) 500 mg PO BIDWM [facility] Last Admin: 06/19/25 08:26 Dose: 500 mg Mirtazapine (Mirtazapine 15 Mg Tablet) 15 mg PO BEDTIME [facility] Last Admin: 06/18/25 21:37 Dose: 15 mg Montelukast Sodium (Montelukast Sodium 10 Mg Tablet) 10 mg PO DAILY [facility] Last Admin: 06/19/25 08:24 Dose: 10 mg Naproxen (Naproxen 500 Mg Tablet) 500 mg PO Q12H PRN PRN Reason: Pain, Mild (Pain Scale 1-3) Nicotine (Nicotine 21 Mg Patch.Td24) 21 mg TRANSDERMA DAILY PRN PRN Reason: smoking cessation Nicotine Polacrilex (Nicotine Polacrilex 2 Mg Gum) 4 mg BUCCAL Q2H PRN PRN Reason: Nicotine Cravings Nystatin (Nystatin Cream 15 Gm Tube) 1 appl TOPICAL BID [facility]; Protocol Last Admin: 06/19/25 08:30 Dose: Not Given Olanzapine (Olanzapine 5 Mg Tablet) 5 mg PO TID PRN PRN Reason: agitation Last Admin: 06/18/25 21:39 Dose: 5 mg Pantoprazole Sodium (Pantoprazole Sodium 20 Mg Tablet.Dr) 40 mg PO BID [facility] Last Admin: 06/19/25 08:25 Dose: 40 mg Prazosin HCl (Prazosin Hcl 1 Mg Capsule) 4 mg PO BEDTIME [facility]; Protocol Last Admin: 06/18/25 21:38 Dose: 4 mg Temazepam (Temazepam 15 Mg Capsule) 15 mg PO BEDTIME PRN PRN Reason: Insomnia Last Admin: 06/18/25 21:39 Dose: 15 mg Trazodone HCl (Trazodone Hcl 50 Mg Tablet) 50 mg PO BEDTIME MRX1 PRN PRN Reason: Insomnia Last Admin: 06/18/25 21:38 Dose: 50 mg Allergies Allergies Allergy/AdvReac Type Severity Reaction Status Date / Time azithromycin (AZITHROMYCIN) Allergy Severe Rash Verified 06/16/25 16:06 Fish Containing Products Allergy Severe Anaphylaxis Verified 06/16/25 16:06 codeine (Codeine) Allergy Intermediate Rash Verified 06/16/25 16:06 Penicillins Allergy Intermediate Rash Verified 06/16/25 16:06 prednisone (Prednisone) Allergy Intermediate Rash Verified 06/16/25 16:06 Sulfa (Sulfonamide Allergy Intermediate Rash Verified 06/16/25 16:06 Antibiotics) (Sulfa (Sulfonamides)) ziprasidone (From Geodon) Allergy Intermediate dysuria, Verified 06/16/25 16:06 rash lithium Allergy Unknown Rash Verified 06/16/25 16:06 Assessment & Plan Assessment & Plan (1) Depression, major, recurrent, severe with psychosis: Status: Acute Code(s): F33.3 - Major depressive disorder, recurrent, severe with psychotic symptoms (2) Severe obesity (BMI 35.0-39.9) with comorbidity: Status: Acute Code(s): E66.01 - Morbid (severe) obesity due to excess calories (3) GERD (gastroesophageal reflux disease): Status: Acute Code(s): K21.9 - Gastro-esophageal reflux disease without esophagitis (4) Chronic post-traumatic stress disorder (PTSD): Status: Acute Code(s): F43.12 - Post-traumatic stress disorder, chronic (5) Borderline personality disorder: Status: Acute Code(s): F60.3 - Borderline personality disorder (6) Type 2 diabetes mellitus: Status: Acute Code(s): E11.9 - Type 2 diabetes mellitus without complications (7) Asthma: Status: Acute Code(s): J45.909 - Unspecified asthma, uncomplicated (8) Nicotine dependence: Status: Acute Code(s): F17.200 - Nicotine dependence, unspecified, uncomplicated Plan HPI: Patient is a 49 y.o single [place] speaking female referred from [facility] ED for suicidal thought with plan to OD on Tylenol. Patient also reports hearing voices and see shadow of her dad who a couple years ago. Patient is not sure that trigger her SI this time I am not sure but thin that it would be from hearing my dad voices . Report she has been feeling suicidal the past couple of days. Formulation/clinical reasoning: Currently experience [facility] seeing her dad in room during 1-1 assessment, severe suicide attempts hx with hx of SI, presented SI with plan to OD on Tylenol, did cut her arm a couple of days prior to presented to the ED. Hx of Depression with psychotic feather, borderline personality D/O. Chronic PTSD. Given the above information, patient would be benefited to be in restrictive environment for own safety, medication adjustment and refer patient to OP psychiatric for aftercare Hospital course: 06/18/25: Continue with all home meds. Patient is currently on Clozaril 200mg at HS. Observed some drooling before and during assessment. Continue to monitor and address it if needed. Curently Prescribed Robinul. 06/19/25: Lab result available: elevated on lipid profile. Patient slept for 9 hours, compliant with medication, except for nystatin powder/cream. She has not shower despite that she was encourage to do so by different staff. She has not attempted to groups but have labs work done this morning. Appeared to be disheveled, unkempt hair. Agreed to take shower later on today. Denies safety concerns, voices at baseline. No self-harm behavior, no SI. Isolated herself. Encouraged to be out and attended groups. She would like to be discharged by Sunday back to skilled nursing. Attempted to call staff at [phone]. Left regarding medications to see if she needs more medication supply. Patient is more visible in the afternoon, packing, showered. Some baseline hand tremors and drooling. Continue to monitor for any complicated/worsen side effects. Plan Patient on 5 minute checks for safety. Admitted to . CV. Tentative discharge on Sunday back to 06/22/25 CBC weekly. Work with treatment team to do collateral with staff at [facility]. Seen by Hospitalist on 06/18/25: no med adjusted needed as it was just adjusted about 2 weeks ago regarding diabetic and lipid profile ANC/CBC: WNL. Patient educated on: medication risk/benefits and therapeutic strategies Informed Consent: understands Reason for continued inpatient stay Substantial Risk for: med/psych decompensation Time Spent With Patient Time: Total time managing care of this patient today ____ minutes.
--- NOTE | 2025-06-19 18:27 | PC.NURSE ---
Declined quitworks for smoking cessation at present time.
[2025-06-19 21:04] VITALS: BP 129/89; PULSE 102; RESP 16; TEMP 36.4; O2SAT 96
[2025-06-19 21:22] VITALS: BP 129/89
--- NOTE | 2025-06-20 | ECG_ITS ---
Test Reason : tachycardic Blood Pressure : */* mmHG Vent. Rate : 112 BPM Atrial Rate : 112 BPM P-R Int : 152 ms QRS Dur : 88 ms QT Int : 338 ms P-R-T Axes : 44 33 58 degrees QTcB Int : 461 ms Sinus tachycardia Otherwise normal ECG When compared with ECG of 15-Jun-2025 16:11, No significant change was found Referred By: Jay Reed Electronically Signed By: DONALD HOOKER MD
[2025-06-20 08:13] VITALS: BP 132/72; PULSE 110; RESP 18; TEMP 36.6; O2SAT 95
--- NOTE | 2025-06-20 09:10 | HO.PSYCHPN ---
Subjective Subjective Date of Service: 06/20/25 Reason For Visit: F60.3, F43.10 Interim History: met with patient; discussed with team; reviewed chart Reports that she is doing okay however complains that her hands are shaky; she said that been shaky for awhile, weeks or longer and she does not know why. Patient reports of ongoing AH that are intermittently worse and she asks for p.r.n.; agrees with Haldol Patient currently on fluphenazine, clozapine and Haldol; not sure why she is on all 3 antipsychotics and do not see any recent prescription for fluphenazine, last 1 being October 2024. Will hold this medication for now Patient tachycardic ordering EKG Mental Status Exam Mental Status Exam Narrative: Pt is alert and oriented; behavior is in behavioral control; cooperative and calm, keeping to herself; patient is not in distress; dressed in casual attire, unkempt; mood is described as okay and affect blunted; eye contact appropriate; Speech is rather slow and a little soft; some psychomotor retardation present; thought process is organized and goal directed; Thought content is on dealing with symptoms, discharge; no delusional thoughts expressed; denies any SI/HI. intermittent AH Patients insight and judgment appear to be baseline Diagnostics Vital Signs (24Hr): Vital Signs - 24 hr 06/19/25 21:04 06/19/25 21:22 06/20/25 08:13 Temperature 97.5 F 97.8 F Pulse Rate 102 H 110 H Respiratory Rate 16 18 Blood Pressure 129/89 129/89 132/72 Pulse Oximetry 96 95 Oxygen Delivery Method Room Air Room Air BMI result Body Mass Index 39.9 Labs 06/19/25 08:00 Labs: Laboratory Results - last 48 hr 06/19/25 08:00 Sodium 140 Potassium 4.2 D Chloride 103 Carbon Dioxide 25 Anion Gap 16 BUN 10 Creatinine 0.65 Estim Creat Clear Calc 131.2 Estimated GFR > 60 Random Glucose 136 H Estimat Average Glucose 137 Hemoglobin A1c % 6.4 H Calcium 9.7 D Total Bilirubin 0.3 AST 23 ALT 21 Alkaline Phosphatase 156 H Total Protein 6.9 Albumin 4.3 Triglycerides 311 H Cholesterol 197 LDL Cholesterol, Calc 96 HDL Cholesterol 39 L TSH 0.98 Medications Medications Current Medications Acetaminophen (Acetaminophen 325 Mg Tablet) 650 mg PO Q6H PRN PRN Reason: Headache/Pain, Scale 1-10 Al Hydroxide/Mg Hydroxide (Magnesium Hydrox/Alum Hydrox 30 Ml Oral.Susp) 30 ml PO Q6H PRN PRN Reason: Heartburn/Nausea Albuterol Sulfate (Albuterol Sulfate 90 Mcg 8 Gm Inhaler) 2 puff INHALE Q6H PRN PRN Reason: wheeze Albuterol Sulfate (Albuterol Sulfate 90 Mcg 8 Gm Inhaler) 2 puff INHALE Q6H PRN PRN Reason: Wheezing Amlodipine Besylate (Amlodipine Besylate 2.5 Mg Tablet) 2.5 mg PO DAILY [facility]; Protocol Last Admin: 06/19/25 08:50 Dose: 2.5 mg Amlodipine Besylate (Amlodipine Besylate 5 Mg Tablet) 5 mg PO DAILY [facility]; Protocol Last Admin: 06/19/25 08:51 Dose: 5 mg Ascorbic Acid (Ascorbic Acid 500 Mg Tablet) 500 mg PO BID [facility] Last Admin: 06/19/25 21:17 Dose: 500 mg Atorvastatin Calcium (Atorvastatin Calcium 10 Mg Tablet) 10 mg PO DAILY [facility] Last Admin: 06/19/25 08:26 Dose: 10 mg Benztropine Mesylate (Benztropine Mesylate 1 Mg Tablet) 1 mg PO BID [facility] Last Admin: 06/19/25 21:18 Dose: 1 mg Buspirone HCl (Buspirone Hcl 10 Mg Tablet) 10 mg PO BID [facility] Last Admin: 06/19/25 21:18 Dose: 10 mg Clozapine (Clozapine 100 Mg Tablet) 200 mg PO BEDTIME [facility] Last Admin: 06/19/25 21:19 Dose: 200 mg Famotidine (Famotidine 20 Mg Tablet) 20 mg PO TIDWM [facility] Last Admin: 06/19/25 17:48 Dose: 20 mg Ferrous Sulfate (Ferrous Sulfate 324 Mg Tablet.Dr) 324 mg PO BIDWM [facility] Last Admin: 06/19/25 17:48 Dose: 324 mg Fluoxetine HCl (Fluoxetine Hcl 20 Mg Capsule) 80 mg PO DAILY [facility] Last Admin: 06/19/25 08:27 Dose: 80 mg Fluphenazine HCl (Fluphenazine Hcl 5 Mg Tablet) 15 mg PO BID [facility] Last Admin: 06/19/25 21:19 Dose: 15 mg Fluticasone/Umeclidinium/Vilanterol (Fluticasone/Umeclidinium/Vilanterol 100/62.5/25 Blst.W.Dev) 1 puff INHALE RDAILY [facility] Last Admin: 06/19/25 08:30 Dose: 1 puff Glycopyrrolate (Glycopyrrolate 1 Mg Tablet) 1 mg PO BID [facility] Last Admin: 06/19/25 21:20 Dose: 1 mg Haloperidol (Haloperidol 5 Mg Tablet) 15 mg PO BEDTIME [facility] Last Admin: 06/19/25 21:20 Dose: 15 mg Hydrochlorothiazide (Hydrochlorothiazide 12.5 Mg Tablet) 12.5 mg PO DAILY [facility]; Protocol Last Admin: 06/19/25 08:33 Dose: 12.5 mg Hydroxyzine HCl (Hydroxyzine Hcl 25 Mg Tablet) 25 mg PO Q6H PRN PRN Reason: mild anxiety Last Admin: 06/19/25 18:25 Dose: 25 mg Ibuprofen (Ibuprofen 600 Mg Tablet) 600 mg PO Q6H PRN PRN Reason: Pain, Mild (Pain Scale 1-3) Lorazepam (Lorazepam 0.5 Mg Tablet) 0.5 mg PO BID PRN PRN Reason: Anxiety Last Admin: 06/19/25 21:23 Dose: 0.5 mg Magnesium Hydroxide (Milk Of Magnesia 30 Ml Oral.Susp) 30 ml PO DAILY PRN PRN Reason: Constipation Metformin HCl (Metformin Hcl 500 Mg Tablet) 500 mg PO BIDWM [facility] Last Admin: 06/19/25 17:48 Dose: 500 mg Mirtazapine (Mirtazapine 15 Mg Tablet) 15 mg PO BEDTIME [facility] Last Admin: 06/19/25 21:21 Dose: 15 mg Montelukast Sodium (Montelukast Sodium 10 Mg Tablet) 10 mg PO DAILY [facility] Last Admin: 06/19/25 08:24 Dose: 10 mg Naproxen (Naproxen 500 Mg Tablet) 500 mg PO Q12H PRN PRN Reason: Pain, Mild (Pain Scale 1-3) Nicotine (Nicotine 21 Mg Patch.Td24) 21 mg TRANSDERMA DAILY PRN PRN Reason: smoking cessation Nicotine Polacrilex (Nicotine Polacrilex 2 Mg Gum) 4 mg BUCCAL Q2H PRN PRN Reason: Nicotine Cravings Nystatin (Nystatin Cream 15 Gm Tube) 1 appl TOPICAL BID [facility]; Protocol Last Admin: 06/19/25 21:24 Dose: 1 appl Olanzapine (Olanzapine 5 Mg Tablet) 5 mg PO TID PRN PRN Reason: agitation Last Admin: 06/19/25 15:38 Dose: 5 mg Pantoprazole Sodium (Pantoprazole Sodium 20 Mg Tablet.Dr) 40 mg PO BID [facility] Last Admin: 06/19/25 21:22 Dose: 40 mg Prazosin HCl (Prazosin Hcl 1 Mg Capsule) 4 mg PO BEDTIME [facility]; Protocol Last Admin: 06/19/25 21:22 Dose: 4 mg Temazepam (Temazepam 15 Mg Capsule) 15 mg PO BEDTIME PRN PRN Reason: Insomnia Last Admin: 06/18/25 21:39 Dose: 15 mg Trazodone HCl (Trazodone Hcl 50 Mg Tablet) 50 mg PO BEDTIME MRX1 PRN PRN Reason: Insomnia Last Admin: 06/18/25 21:38 Dose: 50 mg Allergies Allergies Allergy/AdvReac Type Severity Reaction Status Date / Time azithromycin (AZITHROMYCIN) Allergy Severe Rash Verified 06/16/25 16:06 Fish Containing Products Allergy Severe Anaphylaxis Verified 06/16/25 16:06 codeine (Codeine) Allergy Intermediate Rash Verified 06/16/25 16:06 Penicillins Allergy Intermediate Rash Verified 06/16/25 16:06 prednisone (Prednisone) Allergy Intermediate Rash Verified 06/16/25 16:06 Sulfa (Sulfonamide Allergy Intermediate Rash Verified 06/16/25 16:06 Antibiotics) (Sulfa (Sulfonamides)) ziprasidone (From Geodon) Allergy Intermediate dysuria, Verified 06/16/25 16:06 rash lithium Allergy Unknown Rash Verified 06/16/25 16:06 Assessment & Plan Assessment & Plan (1) Depression, major, recurrent, severe with psychosis: Status: Acute Code(s): F33.3 - Major depressive disorder, recurrent, severe with psychotic symptoms (2) Severe obesity (BMI 35.0-39.9) with comorbidity: Status: Acute Code(s): E66.01 - Morbid (severe) obesity due to excess calories (3) GERD (gastroesophageal reflux disease): Status: Acute Code(s): K21.9 - Gastro-esophageal reflux disease without esophagitis (4) Chronic post-traumatic stress disorder (PTSD): Status: Acute Code(s): F43.12 - Post-traumatic stress disorder, chronic (5) Borderline personality disorder: Status: Acute Code(s): F60.3 - Borderline personality disorder (6) Type 2 diabetes mellitus: Status: Acute Code(s): E11.9 - Type 2 diabetes mellitus without complications (7) Asthma: Status: Acute Code(s): J45.909 - Unspecified asthma, uncomplicated (8) Nicotine dependence: Status: Acute Code(s): F17.200 - Nicotine dependence, unspecified, uncomplicated Plan HPI: Patient is a 49 y.o single Nauruan speaking female referred from [facility] ED for suicidal thought with plan to OD on Tylenol. Patient also reports hearing voices and see shadow of her dad who a couple years ago. Patient is not sure that trigger her SI this time I am not sure but thin that it would be from hearing my dad voices . Report she has been feeling suicidal the past couple of days. Formulation/clinical reasoning: Currently experience [facility] seeing her dad in room during 1-1 assessment, severe suicide attempts hx with hx of SI, presented SI with plan to OD on Tylenol, did cut her arm a couple of days prior to presented to the ED. Hx of Depression with psychotic feather, borderline personality D/O. Chronic PTSD. Given the above information, patient would be benefited to be in restrictive environment for own safety, medication adjustment and refer patient to OP psychiatric for aftercare Hospital course: 06/18/25: Continue with all home meds. Patient is currently on Clozaril 200mg at HS. Observed some drooling before and during assessment. Continue to monitor and address it if needed. Curently Prescribed Robinul. 06/19/25: Lab result available: elevated on lipid profile. Patient slept for 9 hours, compliant with medication, except for nystatin powder/cream. She has not shower despite that she was encourage to do so by different staff. She has not attempted to groups but have labs work done this morning. Appeared to be disheveled, unkempt hair. Agreed to take shower later on today. Denies safety concerns, voices at baseline. No self-harm behavior, no SI. Isolated herself. Encouraged to be out and attended groups. [facility] Attempted to call staff at [phone]. Left VM regarding medications to see if she needs more medication supply. Patient is more visible in the afternoon, packing, showered. Some baseline hand tremors and drooling. Continue to monitor for any complicated/worsen side effects. 9/6 Reports that she is doing okay; denies SI and says she plans to discharge early next week Patient complains that her hands are shaky; she said that been shaky for awhile, weeks or longer and she does not know why. Patient reports of ongoing AH that are intermittently worse and she asks for p.r.n.; agrees with Haldol -Patient tachycardic ordering EKG Regarding medication: -Patient currently on fluphenazine, clozapine and Haldol; not sure why she is on all 3 antipsychotics and do not see any recent prescription for fluphenazine, last 1 being October 2024. Will hold this medication for now Plan Patient on 5 minute checks for safety. Admitted to . CV. 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 Work with treatment team to do collateral with staff at [facility]. Seen by Hospitalist on 06/18/25: no med adjusted needed as it was just adjusted about 2 weeks ago regarding diabetic and lipid profile ANC/CBC: WNL. Patient educated on: diagnosis and medication risk/benefits Informed Consent: understands and further education needed Reason for continued inpatient stay Substantial Risk for: rapid decompensation Time Spent With Patient Time: Total time managing care of this patient today ____ minutes.
[2025-06-20] MEDS: Fluticasone/Umeclidinium/Vilanterol 100/62.5/25 BLST.W.DEV 1 PUFF INHALE (10:24)
[2025-06-20] MEDS: Ferrous Sulfate 324 MG TABLET.DR PO ×2 (10:25→18:08)
[2025-06-20 10:31] VITALS: BP 187/80; PULSE 122
[2025-06-20 14:25] VITALS: BP 134/78; PULSE 130; RESP 18
[2025-06-20 20:29] VITALS: BP 141/94
[2025-06-20 21:06] VITALS: BP 141/94; PULSE 122; RESP 16; TEMP 36.9; O2SAT 98
[2025-06-21 07:41] VITALS: BP 141/87; PULSE 107; RESP 18; O2SAT 96
[2025-06-21] MEDS: Fluticasone/Umeclidinium/Vilanterol 100/62.5/25 BLST.W.DEV 1 PUFF INHALE (08:01)
[2025-06-21] MEDS: Ferrous Sulfate 324 MG TABLET.DR PO (08:02)
--- NOTE | 2025-06-21 09:47 | P.PNPSI_ITS ---
Subjective Subjective Date of Service: 06/21/25 Reason For Visit: F60.3, F43.10 Interim History: Met with patient; discussed with team Patient reports that she is having a very difficult time, hardly slept last night. She says she can see (visual hallucination) her father who was pointing a gun at her; patient tearful. Patient says she needs a 1-1. Staff called [facility] and confirmed that patient is not on Prolixin; however she is on a higher dose of Haldol Mental Status Exam Mental Status Exam Narrative: Pt is alert and oriented; behavior is in behavioral control; cooperative and calm, keeping to herself; patient is not in distress; dressed in casual attire, unkempt; mood is described as not good and affect tearful and anxious; eye contact appropriate; Speech is rather slow and a little soft; some psychomotor agitation present with patient pacing; thought process is organized and goal directed; Thought content is on dealing with symptoms, VH of father; no delusional thoughts expressed; denies any SI/HI. Intermittent AH and VH Patients insight and judgment impaired Diagnostics Vital Signs (24Hr): Vital Signs - 24 hr 06/20/25 10:31 06/20/25 14:25 06/20/25 20:29 Temperature Pulse Rate 122 H 130 H Respiratory Rate 18 Blood Pressure 187/80 H 134/78 141/94 H Pulse Oximetry Oxygen Delivery Method 06/20/25 21:06 06/21/25 07:41 Temperature 98.4 F Pulse Rate 122 H 107 H Respiratory Rate 16 18 Blood Pressure 141/94 H 141/87 H Pulse Oximetry 98 96 Oxygen Delivery Method Room Air Room Air BMI result Body Mass Index 39.9 Labs 06/19/25 08:00 Medications Medications Current Medications Acetaminophen (Acetaminophen 325 Mg Tablet) 650 mg PO Q6H PRN PRN Reason: Headache/Pain, Scale 1-10 Last Admin: 06/21/25 03:35 Dose: 650 mg Al Hydroxide/Mg Hydroxide (Magnesium Hydrox/Alum Hydrox 30 Ml Oral.Susp) 30 ml PO Q6H PRN PRN Reason: Heartburn/Nausea Albuterol Sulfate (Albuterol Sulfate 90 Mcg 8 Gm Inhaler) 2 puff INHALE Q6H PRN PRN Reason: Wheezing Amlodipine Besylate (Amlodipine Besylate 2.5 Mg Tablet) 2.5 mg PO DAILY [facility]; Protocol Last Admin: 06/21/25 08:02 Dose: 2.5 mg Amlodipine Besylate (Amlodipine Besylate 5 Mg Tablet) 5 mg PO DAILY [facility]; Protocol Last Admin: 06/21/25 08:01 Dose: 5 mg Ascorbic Acid (Ascorbic Acid 500 Mg Tablet) 500 mg PO BID [facility] Last Admin: 06/21/25 08:02 Dose: 500 mg Atorvastatin Calcium (Atorvastatin Calcium 10 Mg Tablet) 10 mg PO DAILY [facility] Last Admin: 06/21/25 08:02 Dose: 10 mg Benztropine Mesylate (Benztropine Mesylate 1 Mg Tablet) 1 mg PO BID [facility] Last Admin: 06/21/25 08:02 Dose: 1 mg Buspirone HCl (Buspirone Hcl 10 Mg Tablet) 10 mg PO BID [facility] Last Admin: 06/21/25 08:01 Dose: 10 mg Clozapine (Clozapine 100 Mg Tablet) 200 mg PO BEDTIME [facility] Last Admin: 06/20/25 20:26 Dose: 200 mg Famotidine (Famotidine 20 Mg Tablet) 20 mg PO TIDWM [facility] Last Admin: 06/21/25 08:01 Dose: 20 mg Ferrous Sulfate (Ferrous Sulfate 324 Mg Tablet.Dr) 324 mg PO BIDWM [facility] Last Admin: 06/21/25 08:02 Dose: 324 mg Fluoxetine HCl (Fluoxetine Hcl 20 Mg Capsule) 80 mg PO DAILY [facility] Last Admin: 06/21/25 08:02 Dose: 80 mg Fluphenazine HCl (Fluphenazine Hcl 5 Mg Tablet) 15 mg PO BID [facility] On Hold: 06/20/25 14:37 Last Admin: 06/20/25 10:26 Dose: 15 mg Fluticasone/Umeclidinium/Vilanterol (Fluticasone/Umeclidinium/Vilanterol 100/62.5/25 Blst.W.Dev) 1 puff INHALE RDAILY [facility] Last Admin: 06/21/25 08:01 Dose: 1 puff Glycopyrrolate (Glycopyrrolate 1 Mg Tablet) 1 mg PO BID [facility] Last Admin: 06/21/25 08:02 Dose: 1 mg Haloperidol (Haloperidol 5 Mg Tablet) 15 mg PO BEDTIME [facility] Last Admin: 06/20/25 20:27 Dose: 15 mg Haloperidol (Haloperidol 5 Mg Tablet) 5 mg PO Q4H PRN PRN Reason: agitation/Ah Last Admin: 06/21/25 08:54 Dose: 5 mg Hydrochlorothiazide (Hydrochlorothiazide 12.5 Mg Tablet) 12.5 mg PO DAILY [facility]; Protocol Last Admin: 06/21/25 08:02 Dose: 12.5 mg Hydroxyzine HCl (Hydroxyzine Hcl 25 Mg Tablet) 25 mg PO Q6H PRN PRN Reason: mild anxiety Last Admin: 06/20/25 20:30 Dose: 25 mg Ibuprofen (Ibuprofen 600 Mg Tablet) 600 mg PO Q6H PRN PRN Reason: Pain, Mild (Pain Scale 1-3) Lorazepam (Lorazepam 0.5 Mg Tablet) 0.5 mg PO BID PRN PRN Reason: Anxiety Last Admin: 06/20/25 20:30 Dose: 0.5 mg Magnesium Hydroxide (Milk Of Magnesia 30 Ml Oral.Susp) 30 ml PO DAILY PRN PRN Reason: Constipation Metformin HCl (Metformin Hcl 500 Mg Tablet) 500 mg PO BIDWM [facility] Last Admin: 06/21/25 08:02 Dose: 500 mg Mirtazapine (Mirtazapine 15 Mg Tablet) 15 mg PO BEDTIME [facility] Last Admin: 06/20/25 20:28 Dose: 15 mg Montelukast Sodium (Montelukast Sodium 10 Mg Tablet) 10 mg PO DAILY [facility] Last Admin: 06/21/25 08:02 Dose: 10 mg Naproxen (Naproxen 500 Mg Tablet) 500 mg PO Q12H PRN PRN Reason: Pain, Mild (Pain Scale 1-3) Nicotine (Nicotine 21 Mg Patch.Td24) 21 mg TRANSDERMA DAILY PRN PRN Reason: smoking cessation Nicotine Polacrilex (Nicotine Polacrilex 2 Mg Gum) 4 mg BUCCAL Q2H PRN PRN Reason: Nicotine Cravings Nystatin (Nystatin Cream 15 Gm Tube) 1 appl TOPICAL BID [facility]; Protocol Last Admin: 06/21/25 08:03 Dose: 1 appl Ondansetron HCl (Ondansetron Odt 4 Mg Tab.Rapdis) 4 mg TRANSLINGU Q6H PRN PRN Reason: Nausea and Vomiting Last Admin: 06/20/25 21:36 Dose: 4 mg Pantoprazole Sodium (Pantoprazole Sodium 20 Mg Tablet.Dr) 40 mg PO BID [facility] Last Admin: 06/21/25 08:02 Dose: 40 mg Prazosin HCl (Prazosin Hcl 1 Mg Capsule) 4 mg PO BEDTIME [facility]; Protocol Last Admin: 06/20/25 20:29 Dose: 4 mg Temazepam (Temazepam 15 Mg Capsule) 15 mg PO BEDTIME PRN PRN Reason: Insomnia Last Admin: 06/20/25 23:28 Dose: 15 mg Trazodone HCl (Trazodone Hcl 50 Mg Tablet) 50 mg PO BEDTIME MRX1 PRN PRN Reason: Insomnia Last Admin: 06/20/25 23:28 Dose: 50 mg Allergies Allergies Allergy/AdvReac Type Severity Reaction Status Date / Time azithromycin (AZITHROMYCIN) Allergy Severe Rash Verified 06/16/25 16:06 Fish Containing Products Allergy Severe Anaphylaxis Verified 06/16/25 16:06 codeine (Codeine) Allergy Intermediate Rash Verified 06/16/25 16:06 Penicillins Allergy Intermediate Rash Verified 06/16/25 16:06 prednisone (Prednisone) Allergy Intermediate Rash Verified 06/16/25 16:06 Sulfa (Sulfonamide Allergy Intermediate Rash Verified 06/16/25 16:06 Antibiotics) (Sulfa (Sulfonamides)) ziprasidone (From Geodon) Allergy Intermediate dysuria, Verified 06/16/25 16:06 rash lithium Allergy Unknown Rash Verified 06/16/25 16:06 Assessment & Plan Assessment & Plan (1) Depression, major, recurrent, severe with psychosis: Status: Acute Code(s): F33.3 - Major depressive disorder, recurrent, severe with psychotic symptoms (2) Severe obesity (BMI 35.0-39.9) with comorbidity: Status: Acute Code(s): E66.01 - Morbid (severe) obesity due to excess calories (3) GERD (gastroesophageal reflux disease): Status: Acute Code(s): K21.9 - Gastro-esophageal reflux disease without esophagitis (4) Chronic post-traumatic stress disorder (PTSD): Status: Acute Code(s): F43.12 - Post-traumatic stress disorder, chronic (5) Borderline personality disorder: Status: Acute Code(s): F60.3 - Borderline personality disorder (6) Type 2 diabetes mellitus: Status: Acute Code(s): E11.9 - Type 2 diabetes mellitus without complications (7) Asthma: Status: Acute Code(s): J45.909 - Unspecified asthma, uncomplicated (8) Nicotine dependence: Status: Acute Code(s): F17.200 - Nicotine dependence, unspecified, uncomplicated Plan HPI: Patient is a 49 y.o single [place]an speaking female referred from [facility] ED for suicidal thought with plan to OD on Tylenol. Patient also reports hearing voices and see shadow of her dad who a couple years ago. Patient is not sure that trigger her SI this time I am not sure but thin that it would be from hearing my dad voices . Report she has been feeling suicidal the past couple of days. Formulation/clinical reasoning: Currently experience VH seeing her dad in room during 1-1 assessment, severe suicide attempts hx with hx of SI, presented SI with plan to OD on Tylenol, did cut her arm a couple of days prior to presented to the ED. Hx of Depression with psychotic feather, borderline personality D/O. Chronic PTSD. Given the above information, patient would be benefited to be in restrictive environment for own safety, medication adjustment and refer patient to OP psychiatric for aftercare Hospital course: 06/18/25: Continue with all home meds. Patient is currently on Clozaril 200mg at . Observed some drooling before and during assessment. Continue to monitor and address it if needed. Curently Prescribed Robinul. 06/19/25: Lab result available: elevated on lipid profile. Patient slept for 9 hours, compliant with medication, except for nystatin powder/cream. She has not shower despite that she was encourage to do so by different staff. She has not attempted to groups but have labs work done this morning. Appeared to be disheveled, unkempt hair. Agreed to take shower later on today. Denies safety concerns, voices at baseline. No self-harm behavior, no SI. Isolated herself. Encouraged to be out and attended groups. She would like to be discharged by Sunday back to [facility]. Attempted to call staff at [phone]. Left regarding medications to see if she needs more medication supply. Patient is more visible in the afternoon, packing, showered. Some baseline hand tremors and drooling. Continue to monitor for any complicated/worsen side effects. 06/20 Reports that she is doing okay; denies SI and says she plans to discharge early next week Patient complains that her hands are shaky; she said that been shaky for awhile, weeks or longer and she does not know why. Patient reports of ongoing AH that are intermittently worse and she asks for p.r.n.; agrees with Haldol -Patient tachycardic ordering EKG Regarding medication: -Patient currently on fluphenazine, clozapine and Haldol; not sure why she is on all 3 antipsychotics and do not see any recent prescription for fluphenazine, last 1 being October 2024. Will hold this medication for now 06/21 Patient reports that she is having a very difficult time, hardly slept last night. She says she can see (visual hallucination) her father who was pointing a gun at her; patient tearful. Patient says she needs a 1-1. -Staff called [facility] and confirmed that patient is not on Prolixin; however she is on a higher dose of Haldol -will place patient on one-to-one; she usually is and if this is not done, patient nearly always decompensates and start self-harming Plan change to 1:1. Admitted to . [facility]. Increase Haldol dose to include 5 mg 0900 and 1500 (part of home regimen) Discontinue Prolixin: Patient not taking this medication CBC weekly. Work with treatment team to do collateral with staff at [facility]. Seen by Hospitalist on 06/18/25: no med adjusted needed as it was just adjusted about 2 weeks ago regarding diabetic and lipid profile ANC/CBC: WNL. Patient educated on: diagnosis, medication risk/benefits and therapeutic strategies Informed Consent: understands Reason for continued inpatient stay Substantial Risk for: rapid decompensation Time Spent With Patient Time: Total time managing care of this patient today ____ minutes.
[2025-06-21] MEDS: Nicotine 21 MG PATCH.TD24 TRANSDERMA (10:28)
[2025-06-21] MEDS: Milk of Magnesia 30 ML ORAL.SUSP PO (13:26)
[2025-06-21 19:59] VITALS: BP 138/83; PULSE 114; RESP 15; TEMP 36.6; O2SAT 96
[2025-06-22 08:06] VITALS: BP 124/64; PULSE 109; RESP 18; TEMP 36.2; O2SAT 94
[2025-06-22] MEDS: Fluticasone/Umeclidinium/Vilanterol 100/62.5/25 BLST.W.DEV 1 PUFF INHALE (08:24)
[2025-06-22] MEDS: Ferrous Sulfate 324 MG TABLET.DR PO ×2 (08:25→17:54)
--- NOTE | 2025-06-22 09:37 | P.PNPSI_ITS ---
Subjective Subjective Date of Service: 06/22/25 Reason For Visit: F60.3, F43.10 Subjective Notes: Conditional Voluntary Interim History: Denies SI,HI,AH,VH. Reports constipation is resolved, however, now with diarrhea secondary to laxative use. Discussed one to one. Pt tells team that her most difficult times are evenings- will utilize one to one 3pm-8pm this evening in trial. Pt is wanting to discuss discharge for 06/23. She believes she is prepared to return home. Medication Compliance: Yes Side effects from medications: Yes (diarrhea from laxatives used for constipation) Attending Groups: Yes Review of Systems Acute medical concerns: No Medical Review of Systems: unchanged Review of Systems Review of Systems diarrhea today Mental Status Exam Mental Status Exam Patient Appearance: Appropriate Patient Orientation: Person, Place, Time and Situation Level of Consciousness: Alert Patient Behavior: Talkative Mood Description: Flat Affect Description: Flat Patient Cognition Impaired: No Ability to Follow Directions: Good Speech Pattern: Spontaneous Speech Memory Description: Intact Hallucinations: None Delusions: Not Present Perceptual Disturbances: Depersonalization and Derealization Thought Process: Rumination Thought Content: positive for Circumstantial and positive for Suicidal Ideation (denies) Depressive Symptoms: Thoughts of /Suicide (denies) Judgement: Fair Diagnostics Vital Signs (24Hr): Vital Signs - 24 hr 06/21/25 19:59 06/22/25 08:06 Temperature 97.8 F 97.2 F Pulse Rate 114 H 109 H Respiratory Rate 15 18 Blood Pressure 138/83 124/64 Pulse Oximetry 96 94 Oxygen Delivery Method Room Air BMI result Body Mass Index 39.9 Labs 06/23/25 08:24 Medications Medications Current Medications Acetaminophen (Acetaminophen 325 Mg Tablet) 650 mg PO Q6H PRN PRN Reason: Headache/Pain, Scale 1-10 Last Admin: 06/21/25 03:35 Dose: 650 mg Al Hydroxide/Mg Hydroxide (Magnesium Hydrox/Alum Hydrox 30 Ml Oral.Susp) 30 ml PO Q6H PRN PRN Reason: Heartburn/Nausea Albuterol Sulfate (Albuterol Sulfate 90 Mcg 8 Gm Inhaler) 2 puff INHALE Q6H PRN PRN Reason: Wheezing Amlodipine Besylate (Amlodipine Besylate 2.5 Mg Tablet) 2.5 mg PO DAILY [facility]; Protocol Last Admin: 06/22/25 08:26 Dose: 2.5 mg Amlodipine Besylate (Amlodipine Besylate 5 Mg Tablet) 5 mg PO DAILY [facility]; Protocol Last Admin: 06/22/25 08:26 Dose: 5 mg Ascorbic Acid (Ascorbic Acid 500 Mg Tablet) 500 mg PO BID [facility] Last Admin: 06/22/25 08:26 Dose: 500 mg Atorvastatin Calcium (Atorvastatin Calcium 10 Mg Tablet) 10 mg PO DAILY [facility] Last Admin: 06/22/25 08:25 Dose: 10 mg Benztropine Mesylate (Benztropine Mesylate 1 Mg Tablet) 1 mg PO BID [facility] Last Admin: 06/22/25 08:26 Dose: 1 mg Buspirone HCl (Buspirone Hcl 10 Mg Tablet) 10 mg PO BID [facility] Last Admin: 06/22/25 08:26 Dose: 10 mg Clozapine (Clozapine 100 Mg Tablet) 200 mg PO BEDTIME [facility] Last Admin: 06/21/25 21:17 Dose: 200 mg Famotidine (Famotidine 20 Mg Tablet) 20 mg PO TIDWM [facility] Last Admin: 06/22/25 08:25 Dose: 20 mg Ferrous Sulfate (Ferrous Sulfate 324 Mg Tablet.Dr) 324 mg PO BIDWM [facility] Last Admin: 06/22/25 08:25 Dose: 324 mg Fluoxetine HCl (Fluoxetine Hcl 20 Mg Capsule) 80 mg PO DAILY [facility] Last Admin: 06/22/25 08:25 Dose: 80 mg Fluticasone/Umeclidinium/Vilanterol (Fluticasone/Umeclidinium/Vilanterol 100/62.5/25 Blst.W.Dev) 1 puff INHALE RDAILY [facility] Last Admin: 06/22/25 08:24 Dose: 1 puff Glycopyrrolate (Glycopyrrolate 1 Mg Tablet) 1 mg PO BID [facility] Last Admin: 06/22/25 08:25 Dose: 1 mg Haloperidol (Haloperidol 5 Mg Tablet) 15 mg PO BEDTIME [facility] Last Admin: 06/21/25 21:18 Dose: 15 mg Haloperidol (Haloperidol 5 Mg Tablet) 5 mg PO Q4H PRN PRN Reason: agitation/Ah Last Admin: 06/21/25 18:07 Dose: 5 mg Haloperidol (Haloperidol 5 Mg Tablet) 5 mg PO BID@0900,1500 [facility] Last Admin: 06/22/25 08:25 Dose: 5 mg Hydrochlorothiazide (Hydrochlorothiazide 12.5 Mg Tablet) 12.5 mg PO DAILY [facility]; Protocol Last Admin: 06/22/25 08:25 Dose: 12.5 mg Hydroxyzine HCl (Hydroxyzine Hcl 25 Mg Tablet) 25 mg PO Q6H PRN PRN Reason: mild anxiety Last Admin: 06/21/25 10:28 Dose: 25 mg Ibuprofen (Ibuprofen 600 Mg Tablet) 600 mg PO Q6H PRN PRN Reason: Pain, Mild (Pain Scale 1-3) Lorazepam (Lorazepam 0.5 Mg Tablet) 0.5 mg PO BID PRN PRN Reason: Anxiety Last Admin: 06/21/25 21:20 Dose: 0.5 mg Magnesium Hydroxide (Milk Of Magnesia 30 Ml Oral.Susp) 30 ml PO DAILY PRN PRN Reason: Constipation Last Admin: 06/21/25 13:26 Dose: 30 ml Metformin HCl (Metformin Hcl 500 Mg Tablet) 500 mg PO BIDWM [facility] Last Admin: 06/22/25 08:25 Dose: 500 mg Mirtazapine (Mirtazapine 15 Mg Tablet) 15 mg PO BEDTIME [facility] Last Admin: 06/21/25 21:19 Dose: 15 mg Montelukast Sodium (Montelukast Sodium 10 Mg Tablet) 10 mg PO DAILY [facility] Last Admin: 06/22/25 08:26 Dose: 10 mg Naproxen (Naproxen 500 Mg Tablet) 500 mg PO Q12H PRN PRN Reason: Pain, Mild (Pain Scale 1-3) Nicotine (Nicotine 21 Mg Patch.Td24) 21 mg TRANSDERMA DAILY PRN PRN Reason: smoking cessation Last Admin: 06/21/25 10:28 Dose: 21 mg Nicotine Polacrilex (Nicotine Polacrilex 2 Mg Gum) 4 mg BUCCAL Q2H PRN PRN Reason: Nicotine Cravings Nystatin (Nystatin Cream 15 Gm Tube) 1 appl TOPICAL BID [facility]; Protocol Last Admin: 06/22/25 08:24 Dose: 1 appl Ondansetron HCl (Ondansetron Odt 4 Mg Tab.Rapdis) 4 mg TRANSLINGU Q6H PRN PRN Reason: Nausea and Vomiting Last Admin: 06/20/25 21:36 Dose: 4 mg Pantoprazole Sodium (Pantoprazole Sodium 20 Mg Tablet.Dr) 40 mg PO BID [facility] Last Admin: 06/22/25 08:25 Dose: 40 mg Polyethylene Glycol (Polyethylene Glycol 3350 17 Gm Powd.Pack) 17 gm PO DAILY [facility] Last Admin: 06/22/25 08:28 Dose: Not Given Prazosin HCl (Prazosin Hcl 1 Mg Capsule) 4 mg PO BEDTIME [facility]; Protocol Last Admin: 06/21/25 21:16 Dose: 4 mg Temazepam (Temazepam 15 Mg Capsule) 15 mg PO BEDTIME PRN PRN Reason: Insomnia Last Admin: 06/21/25 22:54 Dose: 15 mg Trazodone HCl (Trazodone Hcl 50 Mg Tablet) 50 mg PO BEDTIME MRX1 PRN PRN Reason: Insomnia Last Admin: 06/22/25 02:13 Dose: 50 mg Allergies Allergies Allergy/AdvReac Type Severity Reaction Status Date / Time azithromycin (AZITHROMYCIN) Allergy Severe Rash Verified 06/16/25 16:06 Fish Containing Products Allergy Severe Anaphylaxis Verified 06/16/25 16:06 codeine (Codeine) Allergy Intermediate Rash Verified 06/16/25 16:06 Penicillins Allergy Intermediate Rash Verified 06/16/25 16:06 prednisone (Prednisone) Allergy Intermediate Rash Verified 06/16/25 16:06 Sulfa (Sulfonamide Allergy Intermediate Rash Verified 06/16/25 16:06 Antibiotics) (Sulfa (Sulfonamides)) ziprasidone (From Geodon) Allergy Intermediate dysuria, Verified 06/16/25 16:06 rash lithium Allergy Unknown Rash Verified 06/16/25 16:06 Assessment & Plan Assessment & Plan (1) Depression, major, recurrent, severe with psychosis: Status: Acute Code(s): F33.3 - Major depressive disorder, recurrent, severe with psychotic symptoms (2) Severe obesity (BMI 35.0-39.9) with comorbidity: Status: Acute Code(s): E66.01 - Morbid (severe) obesity due to excess calories (3) GERD (gastroesophageal reflux disease): Status: Acute Code(s): K21.9 - Gastro-esophageal reflux disease without esophagitis (4) Chronic post-traumatic stress disorder (PTSD): Status: Acute Code(s): F43.12 - Post-traumatic stress disorder, chronic (5) Borderline personality disorder: Status: Acute Code(s): F60.3 - Borderline personality disorder (6) Type 2 diabetes mellitus: Status: Acute Code(s): E11.9 - Type 2 diabetes mellitus without complications (7) Asthma: Status: Acute Code(s): J45.909 - Unspecified asthma, uncomplicated (8) Nicotine dependence: Status: Acute Code(s): F17.200 - Nicotine dependence, unspecified, uncomplicated Plan HPI: Patient is a 49 y.o single Ukrainian speaking female referred from [facility] ED for suicidal thought with plan to OD on Tylenol. Patient also reports hearing voices and see shadow of her dad who a couple years ago. Patient is not sure that trigger her SI this time I am not sure but thin that it would be from hearing my dad voices . Report she has been feeling suicidal the past couple of days. Formulation/clinical reasoning: Currently experience VH seeing her dad in room during 1-1 assessment, severe suicide attempts hx with hx of SI, presented SI with plan to OD on Tylenol, did cut her arm a couple of days prior to presented to the ED. Hx of Depression with psychotic feather, borderline personality D/O. Chronic PTSD. Given the above information, patient would be benefited to be in restrictive environment for own safety, medication adjustment and refer patient to OP psychiatric for aftercare Hospital course: 06/18/25: Continue with all home meds. Patient is currently on Clozaril 200mg at [facility]. Observed some drooling before and during assessment. Continue to monitor and address it if needed. Curently Prescribed Robinul. 06/19/25: Lab result available: elevated on lipid profile. Patient slept for 9 hours, compliant with medication, except for nystatin powder/cream. She has not shower despite that she was encourage to do so by different staff. She has not attempted to groups but have labs work done this morning. Appeared to be disheveled, unkempt hair. Agreed to take shower later on today. Denies safety concerns, voices at baseline. No self-harm behavior, no SI. Isolated herself. Encouraged to be out and attended groups. She would like to be discharged by Sunday back to [facility]. Attempted to call staff at [phone]. Left regarding medications to see if she needs more medication supply. Patient is more visible in the afternoon, packing, showered. Some baseline hand tremors and drooling. Continue to monitor for any complicated/worsen side effects. 06/20 Reports that she is doing okay; denies SI and says she plans to discharge early next week Patient complains that her hands are shaky; she said that been shaky for awhile, weeks or longer and she does not know why. Patient reports of ongoing AH that are intermittently worse and she asks for p.r.n.; agrees with Haldol -Patient tachycardic ordering EKG Regarding medication: -Patient currently on fluphenazine, clozapine and Haldol; not sure why she is on all 3 antipsychotics and do not see any recent prescription for fluphenazine, last 1 being October 2024. Will hold this medication for now 06/21 Patient reports that she is having a very difficult time, hardly slept last night. She says she can see (visual hallucination) her father who was pointing a gun at her; patient tearful. Patient says she needs a 1-1. -Staff called [facility] and confirmed that patient is not on Prolixin; however she is on a higher dose of Haldol -will place patient on one-to-one; she usually is and if this is not done, patient nearly always decompensates and start self-harming 06/22: Change to five minute checks. Resume one to one from 3-8 pm this evening in trial. DC 06/23 tentative. Plan change to 1:1. Admitted to . [facility]. Increase Haldol dose to include 5 mg 0900 and 1500 (part of home regimen) Discontinue Prolixin: Patient not taking this medication CBC weekly. Work with treatment team to do collateral with staff at [facility]. Seen by Hospitalist on 06/18/25: no med adjusted needed as it was just adjusted about 2 weeks ago regarding diabetic and lipid profile ANC/CBC: WNL. Reason for continued inpatient stay Substantial Risk for: rapid decompensation Time Spent With Patient Time: Total time managing care of this patient today ____ minutes.
[2025-06-22 20:00] VITALS: BP 169/95; PULSE 100; RESP 20; TEMP 36.4; O2SAT 96
[2025-06-22 20:28] VITALS: BP 162/97
[2025-06-23 08:00] VITALS: BP 151/88; PULSE 110; RESP 16; TEMP 36.6; O2SAT 95
[2025-06-23 08:25] VITALS: BP 151/88
[2025-06-23] MEDS: Ferrous Sulfate 324 MG TABLET.DR PO (08:25)
[2025-06-23 08:26] VITALS: BP 151/88
[2025-06-23] MEDS: Fluticasone/Umeclidinium/Vilanterol 100/62.5/25 BLST.W.DEV 1 PUFF INHALE (08:30)
[2025-06-23 08:45] LABS: Neut%MD 58.7 %; WBCANC 5.5 X10*3/uL
[2025-06-23 08:58] LABS: Creatinine Clr Calc Pharmacy 135.4; Estimated Glomerular Filt Rate > 60
--- NOTE | 2025-06-23 09:57 | PM.PSYDC ---
DS: Providers Provider Date of Service: 06/23/25 Date of admission: 06/17/25 16:49 Date of discharge: 06/23/25 Primary care physician: Maribel Marquez NP Admitting clinician: Tania Hodges Attending physician on admission: Sourav Lucas Consults: 06/17/25 17:35 Consult to Hospitalist Routine Comment: Consulting Provider: [facility] Hospitalists Reason For Exam: admission physical Attending physician on discharge: Sourav Lucas Discharging clinician: Eli Sousa DS: Diagnosis Discharge Diagnosis (1) Depression, major, recurrent, severe with psychosis: Status: Acute (2) Severe obesity (BMI 35.0-39.9) with comorbidity: Status: Acute (3) GERD (gastroesophageal reflux disease): Status: Acute (4) Chronic post-traumatic stress disorder (PTSD): Status: Acute (5) Borderline personality disorder: Status: Acute (6) Type 2 diabetes mellitus: Status: Acute (7) Asthma: Status: Acute (8) Nicotine dependence: Status: Acute DS: Medications Discharge Medications Home Medications: Home Medications ?Medication ?Instructions ?Recorded ?Confirmed albuterol sulfate 90 mcg/actuation 2 puff inhalation Q6H PRN Wheezing 06/24/24 06/18/25 aerosol inhaler clozapine 100 mg tablet 200 mg PO BEDTIME 06/24/24 06/18/25 prazosin 2 mg capsule 4 mg PO BEDTIME 06/24/24 06/18/25 metformin 500 mg tablet 500 mg PO BID 07/15/24 06/18/25 atorvastatin 10 mg tablet 10 mg PO DAILY 05/23/25 06/18/25 ferrous sulfate 325 mg (65 mg 325 mg PO BID 05/23/25 06/18/25 iron) tablet fluticasone fur. 200 mcg-umeclid 1 ea inhalation DAILY 05/23/25 06/18/25 62.5 mcg-vilant 25 mcg inhalat.powder (Trelegy Ellipta) glycopyrrolate 1 mg tablet 1 mg PO BID 05/23/25 06/18/25 ibuprofen 600 mg tablet 600 mg PO Q6H PRN Mild Pain (Scale 05/23/25 06/18/25 Score 1-4) lorazepam 0.5 mg tablet 0.5 mg PO BID PRN Anxiety 05/23/25 06/18/25 mirtazapine 15 mg tablet 15 mg PO BEDTIME 05/23/25 06/18/25 montelukast 10 mg tablet 10 mg PO DAILY 05/23/25 06/18/25 ascorbic acid (vitamin C) 500 mg 500 mg PO BID 06/18/25 06/18/25 tablet (Vitamin C) benztropine 1 mg tablet 1 mg PO BID 06/18/25 06/18/25 buspirone 10 mg tablet 10 mg PO BID 06/18/25 06/18/25 famotidine 20 mg tablet 20 mg PO TIDWM 06/18/25 06/18/25 fluoxetine 40 mg capsule 80 mg PO DAILY 06/18/25 06/18/25 naproxen 500 mg tablet 500 mg PO BID PRN Pain (Scale 06/18/25 06/18/25 Score 4-6) pantoprazole 40 mg tablet,delayed 40 mg PO BID 06/18/25 06/18/25 release temazepam 15 mg capsule mg PRN Insomnia 06/18/25 Previous Rx's ?Medication ?Instructions ?Recorded amlodipine 2.5 mg tablet 7.5 mg PO DAILY 30 days #90 tabs 06/01/25 haloperidol 5 mg tablet 15 mg (3 x 5 mg) PO BEDTIME 30 06/01/25 days #90 tabs hydrochlorothiazide 12.5 mg tablet 12.5 mg PO DAILY 30 days #30 tabs 06/01/25 nystatin 100,000 unit/gram topical 1 appl topical BID 30 days #30 06/01/25 cream grams acetaminophen 325 mg tablet 650 mg (2 x 325 mg) PO Q6H PRN 06/23/25 Headache/Pain, Scale 1-10 #0 tabs haloperidol 5 mg tablet 5 mg PO BID@0900,1500 #60 tabs 06/23/25 nicotine 21 mg/24 hr daily 21 mg transdermal DAILY PRN 06/23/25 transdermal patch smoking cessation #30 ea trazodone 50 mg tablet 50 mg PO BEDTIME MRX1 PRN Insomnia 06/23/25 #60 tabs Mental Status Exam Mental Status Exam Patient Appearance: Appropriate Patient Orientation: Person, Place, Time and Situation Level of Consciousness: Alert Patient Behavior: Talkative Mood Description: Flat Affect Description: Flat Patient Cognition Impaired: No Ability to Follow Directions: Good Speech Pattern: Spontaneous Speech Memory Description: Intact Hallucinations: None Delusions: Not Present Perceptual Disturbances: Depersonalization and Derealization Thought Process: Rumination Thought Content: positive for Circumstantial and positive for Suicidal Ideation (denies) Depressive Symptoms: Thoughts of /Suicide (denies) Judgement: Fair Data Data Completed and Pending Completed studies during hospitalization [Text1]: 06/19/25 06/23/25 08:00 08:24 Absolute Neuts (auto) 3.2 Sodium 140 Potassium 4.2 D Chloride 103 Carbon Dioxide 25 Anion Gap 16 BUN 10 Creatinine 0.65 0.63 Estim Creat Clear Calc 131.2 135.4 Estimated GFR > 60 > 60 Random Glucose 136 H Estimat Average Glucose 137 Hemoglobin A1c % 6.4 H Calcium 9.7 D Total Bilirubin 0.3 AST 23 ALT 21 Alkaline Phosphatase 156 H Total Protein 6.9 Albumin 4.3 Triglycerides 311 H Cholesterol 197 LDL Cholesterol, Calc 96 HDL Cholesterol 39 L TSH 0.98 DS: Summary Hospital Course Hospital Course: Admission to adult psychiatry for exacerbation of PTSD and recurrent major depression. Pt reported SI with plan, hearing voices to self harm and seeing shadows of her father who had . She had been engaging in SIBS (cutting). Medications were evaluated and adjusted. Pt was offered full milieu to strengthen coping skills which pt was an active participant. Pt utilized the team and the milieu for support to stabilize and will return to her program Status at Discharge Functional status at discharge: independent ambulation Overall status at discharge: patient is back to baseline Time Spent with Patient Time attestation: Total time managing care of this patient today ____ minutes. Time spent: Less than 30 minutes Discharge Plan Discharge Anticipated Discharge Date/Time: 06/23/25 09:43 Patient Disposition: Xfer Other Discharge Diagnosis: PTSD Recurrent Major Depression Borderline Personality Disorder HTN DM Asthma GERD Referrals: [facility] Therapy with Melany Ortiz [Other] - 06/24/25 9:30 am [facility] Medication Management with Wanda Cleveland [Other] - 07/08/25 9:00 am [facility] [Other] - 06/23/25 11:00 am Maribel Marquez NP [Primary Care Provider, Medical] - 1 Week Discharge Medications: New acetaminophen 325 mg Tablet 650 mg PO Q6H PRN (Reason: Headache/Pain, Scale 1-10) Qty: 0 0RF haloperidol 5 mg Tablet 5 mg PO BID@0900,1500 Qty: 60 0RF trazodone 50 mg Tablet 50 mg PO BEDTIME MRX1 PRN (Reason: Insomnia) Qty: 60 0RF nicotine 21 mg/24 hr Patch 24 Hour 21 mg transdermal DAILY PRN (Reason: smoking cessation) Qty: 30 0RF Continued glycopyrrolate 1 mg tablet 1 mg PO BID atorvastatin 10 mg tablet 10 mg PO DAILY lorazepam 0.5 mg tablet 0.5 mg PO BID PRN (Reason: Anxiety) Rx Instructions: Take 1 tablet at 9am and 1 tablet at 4pm ferrous sulfate 325 mg (65 mg iron) tablet 325 mg PO BID montelukast 10 mg tablet 10 mg PO DAILY mirtazapine 15 mg tablet 15 mg PO BEDTIME ibuprofen 600 mg tablet 600 mg PO Q6H PRN (Reason: Mild Pain (Scale Score 1-4)) Trelegy Ellipta 200-62.5-25 mcg blister with device 1 ea inhalation DAILY fluoxetine 40 mg Capsule 80 mg PO DAILY famotidine 20 mg Tablet 20 mg PO TIDWM ascorbic acid (vitamin C) [Vitamin C] 500 mg Tablet 500 mg PO BID buspirone 10 mg Tablet 10 mg PO BID benztropine 1 mg Tablet 1 mg PO BID naproxen 500 mg Tablet 500 mg PO BID PRN (Reason: Pain (Scale Score 4-6)) temazepam 15 mg Capsule 15 mg PO BEDTIME PRN (Reason: Insomnia) pantoprazole 40 mg Tablet,Delayed Release (Dr/Ec) 40 mg PO BID clozapine 100 mg tablet 200 mg PO BEDTIME albuterol sulfate 90 mcg/actuation HFA aerosol inhaler 2 puff inhalation Q6H PRN (Reason: Wheezing) prazosin 2 mg capsule 4 mg PO BEDTIME metformin 500 mg tablet 500 mg PO BID amlodipine 2.5 mg Tablet 7.5 mg PO DAILY 30 Days Qty: 90 0RF Protocol: Hold for SBP< HOLD for SBP < : 90 nystatin 100,000 unit/gram Cream 1 appl topical BID 30 Days Qty: 30 0RF Protocol: Apply to: Apply to: affected area hydrochlorothiazide 12.5 mg Tablet 12.5 mg PO DAILY 30 Days Qty: 30 0RF Protocol: Hold for SBP< HOLD for SBP < : 90 haloperidol 5 mg Tablet 15 mg PO BEDTIME 30 Days Qty: 90 0RF Discontinued fluphenazine HCl 10 mg Tablet 15 mg PO BID Discharge Orders: Discharge Order (Routine); Ordered 06/23/25 Ordered By: Eli Sousa Diet: Advance to usual diet Activity on Discharge: As tolerated Stand Alone Forms: Patient Portal Discharge page, Community Support Print Language: Tamazight Care Plan Goals: Mood and Behavioral Stabilization Health Concerns: Mood and Behavioral Stabilization Plan of Treatment: Attend scheduled appointments Take medications as directed Assessment: Denies SI,HI,AH,VH No symptoms of psychosis or germania Pt agrees with current plan of care Discharge Date/Time: 06/23/25 10:48
== END 2025-06-23 10:48 | disposition other institution (70) | DRG 885 ==
PROVIDERS: Clinical Nurse Specialist Psychiatric/Mental Health, Adult; Admitting Provider Psychiatry & Neurology Psychiatry; PCP Nurse Practitioner Family; Visit Provider Psychiatry & Neurology Psychiatry
DX: F33.3 Major depressive disorder, recurrent, severe with psychotic symptoms (principal); R45.851 Suicidal ideations; I10 Essential (primary) hypertension; E78.5 Hyperlipidemia, unspecified; E11.9 Type 2 diabetes mellitus without complications; F60.3 Borderline personality disorder; J45.909 Unspecified asthma, uncomplicated; F17.210 Nicotine dependence, cigarettes, uncomplicated; Z71.6 Tobacco abuse counseling; E66.01 Morbid (severe) obesity due to excess calories; K21.9 Gastro-esophageal reflux disease without esophagitis; F43.12 Post-traumatic stress disorder, chronic; Z79.84 Long term (current) use of oral hypoglycemic drugs; Z79.899 Other long term (current) drug therapy
CPT/HCPCS: 36415; 80053; 80061; 82565; 83036; 84443; 85048; 93005

== ENCOUNTER → 2025-06-17 16:49 | Outpatient (BNV) | payer MEDICARE, MEDICAID, SELFPAY | PROVIDERS: Admitting Provider Psychiatry & Neurology Psychiatry; PCP Nurse Practitioner Family; Visit Provider Nurse Practitioner Family | DX: I10 Essential (primary) hypertension (principal) | CPT/HCPCS: 99222 ==

== ENCOUNTER → 2025-06-17 16:49 | Outpatient (BNV) | payer MEDICARE, MEDICAID, SELFPAY | PROVIDERS: Admitting Provider Psychiatry & Neurology Psychiatry; PCP Nurse Practitioner Family; Visit Provider Nurse Practitioner Psychiatric/Mental Health | DX: F60.3 Borderline personality disorder (principal); F33.3 Major depressive disorder, recurrent, severe with psychotic symptoms; F43.12 Post-traumatic stress disorder, chronic; E66.01 Morbid (severe) obesity due to excess calories; K21.9 Gastro-esophageal reflux disease without esophagitis; F17.200 Nicotine dependence, unspecified, uncomplicated | CPT/HCPCS: 90792; 99232 ==

== ENCOUNTER 2025-06-27 22:16 | Emergency (ER) | payer MEDICARE, MEDICAID, SELFPAY ==
--- OUTSIDE RECORDS SUMMARY | 2025-06-24 01:59 | XMS_ITS | Encounter Summary ---
Author Organization [facility] Address [address] [place] [address] Care Team Providers Care Technician Name Role Phone Maribel Marquez Primary Care Provider [phone] Reason for Visit * Reason Comments Suicidal Encounter Details Date Type Department Care Team (Late st Contact Info) Description 06/24/2025 1:59 AM EDT - 06/24/2025 10:03 AM EDT Emergency [facility] Emergency [address] [place] [id number] Julian Clarke MD [address] [place] [address] Melissa Smith MD [address] [place] [address] Suicidal ideation (Primary Dx); Hallucinations; Epigastric abdominal [...] Mental Health Crisis: Getting Help: General Info (Persian) * Suicidal Thoughts (Persian) * Suicide Safety Plan: General Info (Persian) documented in this encounter Medications at Time [...] crisis. Well-known to them. Recent discharge from [place]. Patient lives at [facility]. Reports upcoming appointment for her mental health. Abdomen remains nontender and patient denies any pain. No active SI/HI. Is eager to go home. Return precautions discussed. Melissa Smith MD 06/24/25 0813 Melissa Smith MD 06/24/25 0921 documented in this encounter Consult Notes * Nicky Nj - 06/24/2025 8:58 AM EDTAssociated Order(s): IP CONSULT TO DOG BOARDER Images from the original note were not included. Behavioral Health Services - Crisis Assessment Important times Time of arrival: 06/24/25 1:59 am Time of referral: 06/24/25 2:05 am Time of readiness: 06/24/25 6:00 am Time assessment started: 06/24/25 8:00 am Time of disposition: 06/24/25 9:00 am Location: [facility] Emergency Department Consulted case with: Augusta [...] Lucita stated I just got out of [facility] and they kept me for 3 days . She stated last night I was hearing my fathers voice and I came here . Lucita stated I have bad dreams about my father . She stated I am fine now and I don't want to hurt myself . She stated I want to go home . jail reported she just got home from [facility] yesterday. Her staff stated last night she reported she needed to go to the hospital due to hearing her father's voice. They stated if she stated she is safe it is fine to return to the fpc. History of Present Illness: Lucita is a 49 y.o. female with Chief Complaint Patient presents with Suicidal Social/Educational History: Guardian - if Yes, provide contact information: self Status: N/A State Agency Involvement: None reported Chaz's Order: None reported Marital Status: Single Alternative Placement Details: None Living Situation for patient: [facility] Household Members/Age: Unknown Friendships/Family/Social Peer Support/Relationships: Has [...] contact information, and engagement level: Therapist: Roro ([phone]) Psychiatrist: Joslyn Stratton ([phone]) PCP: Maribel Marquez ([phone]) Family: None reported. Other: Art/House/[facility] ([phone] Mental Status Speech: WNL Eye Contact: WNL [...] Treatment History: Outpatient Mental Health Treatment: Through [facility] Previous or Current Psychological Diagnosis: Borderline Personality D/O, PTSD Prior Psychiatric Hospitalizations/Residential Treatment Facilities: Lucita is well known to [facility]. She has a long history of suicide [...] Lucita lives in a 24 hour staffed fpc with several providers working with her. Interventions: [...] to assist Lucita Underwood here at [facility]. This report is written and finalized by: Nicky Nj MS Behavioral Health Specialist [facility] (Tel): [phone] / : [phone] documented in this encounter Plan of Treatment [...] 8a panel, urine (06/24/2025 3:15 AM EDT) [facility] Amphetamine Screen, Ur Negative Negative LAB CHEMISTRY METHOD 06/24/2025 4:14 AM [facility] Comment:Certain OTC medicati ons containing ephedrine, phenylephrine, pseudoephedrine and phenylpropanolamine can cause false positive results. Barbiturate Screen, Ur Negative Negative LAB CHEMISTRY METHOD 06/24/2025 4:14 AM [facility] Benzodiazepine Screen, Ur Negative Negative LAB CHEMISTRY METHOD 06/24/2025 4:14 AM [facility] Cocaine Screen, Ur Negative Negative LAB CHEMISTRY METHOD 06/24/2025 4:14 AM [facility] Opiate Screen, Ur Negative Negative LAB CHEMISTRY METHOD 06/24/2025 4:14 AM [facility] Cannabinoid (THC) Screen, Ur Negative Negative LAB CHEMISTRY METHOD 06/24/2025 4:14 AM [facility] Comment:Specimens from patie nts taking pantoprazole sodium (Protonix) have been shown to produce false positive results. Oxycodone Screen, Ur Negative Negative LAB CHEMISTRY METHOD 06/24/2025 4:14 AM [facility] Fentanyl, Ur Negative Negative LAB CHEMISTRY METHOD 06/24/2025 4:14 AM [facility] Urine Urine specimen obtained by clean catch procedure / Unknown Non-blood Collection / Unknown 06/24/2025 3:15 AM EDT 06/24/2025 3:[address] [facility] - 06/24/2025 4:14 AM EDT [...] LAB URINE ORDERABLES Final R esult [facility] [address] [place] [address], [place] [phone] * Urinalysis with reflex microscopic (06/24/2025 3:15 AM EDT) Specific [place] Urine 1.009 1.003 - 1.030 LAB URINALYSIS - AUTOMATED METHOD 06/24/2025 4:10 AM [facility] pH, Urine 6.5 5.0 - 8.0 pH LAB URINALYSIS - AUTOMATED METHOD 06/24/2025 4:10 AM [facility] Leukocytes, Urine Negative Negative LAB URINALYSIS - AUTOMATED METHOD 06/24/2025 4:10 AM [facility] Nitrite, Urine Negative Negative LAB URINALYSIS - AUTOMATED METHOD 06/24/2025 4:10 AM [facility] Protein, Urine Negative <=Trace mg/dL LAB URINALYSIS - AUTOMATED METHOD 06/24/2025 4:10 AM [facility] Glucose, Urine Negative Negative mg/dL LAB URINALYSIS - AUTOMATED METHOD 06/24/2025 4:10 AM [facility] Ketones, Urine Negative Negative mg/dL LAB URINALYSIS - AUTOMATED METHOD 06/24/2025 4:10 AM [facility] Urobilinogen, Urine 0.2 0.2 - 1.0 mg/dL LAB URINALYSIS - AUTOMATED METHOD 06/24/2025 4:[address] [facility] Bilirubin, Urine Negative Negative LAB URINALYSIS - AUTOMATED METHOD 06/24/2025 4:[address] [facility] Blood, Urine Negative Negative LAB URINALYSIS - AUTOMATED METHOD 06/24/2025 4:[address] [facility] Urine Urine specimen obtained by clean catch procedure / Unknown Non-blood Collection / Unknown 06/24/2025 3:15 AM EDT 06/24/2025 3:53 AM EDT us Julian Clarke MD LAB URINE ORDERABLES Final R esult [facility] [address] [place] [address], [place] [phone] * POC , urine manually resulted (06/24/2025 [...] GEMUSE QTc 492 ms GEMUSE P Wave [place] 46 degrees GEMUSE R [place] 24 degrees GEMUSE T [place] 45 degrees GEMUSE ECG Interpretation Sinus tachycardia [...] LAB CHEMISTRY METHOD 06/24/2025 3:[address] [facility] Blood Venous blood specimen / Unknown Venipuncture / Unknown 06/24/2025 2:23 AM EDT 06/24/2025 2:52 AM EDT Julian Clarke MD LAB BLOOD ORDERABLES Final R esult Performing Organization Address City/[facility]/ZIP Co de Phone Number [facility] [address] [place] [address], [place] [phone] * Salicylate Level (06/24/2025 2:23 AM EDT) Salicylate Level 2.4 2.0 - 29.0 mg/dL LAB CHEMISTRY METHOD 06/24/2025 3:[address] [facility] Blood Venous blood specimen / Unknown Venipuncture / Unknown 06/24/2025 2:23 AM EDT 06/24/2025 2:52 AM EDT Julian Clarke MD LAB BLOOD ORDERABLES Final R esult Performing Organization Address City/[facility]/ZIP Co de Phone Number [facility] [address] [place] [address], [place] [phone] * Troponin I High Sensitivity (06/24/2025 2:23 AM EDT) High Sensitivity Troponin I 4 <=54 ng/L LAB CHEMISTRY METHOD 06/24/2025 3:[address] [facility] Blood Venous blood specimen / Unknown Venipuncture / Unknown 06/24/2025 2:23 AM EDT 06/24/2025 2:[address] [facility] - 06/24/2025 3:21 AM EDT High levels of biotin in samples may falsely decrease hsTroponin values. Use caution when interpreting hsTroponin results in patients taking biotin who exhibit renal impairment (eGFR <60) or in patients taking more than 20 mg/day of biotin. us Julian Clarke MD LAB BLOOD ORDERABLES Final R esult [facility] [address] [place] [address], * (ABNORMAL) CBC auto differential (06/24/2025 2:23 AM EDT) [facility] Signature WBC 7.9 4.8 - 10.8 K/mcL LAB HEMETOLOGY METHOD 06/24/2025 2:[address] [facility] RBC 3.90 3.80 - 4.80 M/mcL LAB HEMETOLOGY METHOD 06/24/2025 2:[address] [facility] Hemoglobin 12.1 11.5 - 16.0 g/dL LAB HEMETOLOGY METHOD 06/24/2025 2:[address] [facility] Hematocrit 36.7 35.0 - 47.0 % LAB HEMETOLOGY METHOD 06/24/2025 2:[address] [facility] MCV 93.6 79.0 - 98.0 FL LAB HEMETOLOGY METHOD 06/24/2025 2:[address] [facility] MCH 30.9 27.0 - 32.0 pcg LAB HEMETOLOGY METHOD 06/24/2025 2:[address] [facility] MCHC 33.0 32.0 - 37.0 g/dL LAB HEMETOLOGY METHOD 06/24/2025 2:[address] [facility] RDW 12.7 11.0 - 15.0 % LAB HEMETOLOGY METHOD 06/24/2025 2:[address] [facility] Platelets 277 130 - 400 K/mcL LAB HEMETOLOGY METHOD 06/24/2025 2:58 AM [facility] MPV 9.4 7.0 - 11.0 FL LAB HEMETOLOGY METHOD 06/24/2025 2:58 AM [facility] NRBC 0.0 <1.0 % LAB HEMETOLOGY METHOD 06/24/2025 2:58 AM [facility] NRBC Absolute 0.00 <0.10 K/mcL LAB HEMETOLOGY METHOD 06/24/2025 2:58 AM [facility] Neutrophils Relative 58.5 % LAB HEMETOLOGY METHOD 06/24/2025 2:58 AM [facility] Lymphocytes Relative 24.7 % LAB HEMETOLOGY METHOD 06/24/2025 2:58 AM [facility] Monocytes Relative 9.8 % LAB HEMETOLOGY METHOD 06/24/2025 2:58 AM [facility] Eosinophils Relative 5.3 % LAB HEMETOLOGY METHOD 06/24/2025 2:58 AM [facility] Basophils Relative 0.6 % LAB HEMETOLOGY METHOD 06/24/2025 2:58 AM [facility] Immature Granulocytes Relative 1.1 % LAB HEMETOLOGY METHOD 06/24/2025 2:58 AM [facility] Neutrophils Absolute 4.64 1.50 - 7.00 K/mcL LAB HEMETOLOGY METHOD 06/24/2025 2:58 AM [facility] Lymphocytes Absolute 1.96 1.00 - 5.00 K/mcL LAB HEMETOLOGY METHOD 06/24/2025 2:58 AM [facility] Monocytes Absolute 0.78 0.20 - 1.00 K/mcL LAB HEMETOLOGY METHOD 06/24/2025 2:58 AM [facility] Eosinophils Absolute 0.42 0.00 - 0.50 K/mcL LAB HEMETOLOGY METHOD 06/24/2025 2:[address] [facility] Basophils Absolute 0.05 0.00 - 0.20 K/mcL LAB HEMETOLOGY METHOD 06/24/2025 2:[address] [facility] Immature Granulocytes Absolute 0.09(H) 0.00 - 0.03 K/mcL LAB HEMETOLOGY METHOD 06/24/2025 2:[address] [facility] Blood Venous blood specimen / Unknown Venipuncture / Unknown 06/24/2025 2:23 AM EDT 06/24/2025 2:51 AM EDT Julian Clarke MD LAB BLOOD ORDERABLES Final R esult Performing Organization Address [facility]/ZIP Co de Phone Number [facility] [address] [place] [address], [place] [phone] * Lactate, with Reflex (06/24/2025 2:23 AM EDT) LACTIC ACID 1.9 0.4 - 2.0 mmol/L LAB CHEMISTRY METHOD 06/24/2025 3:[address] [facility] Blood Venous blood specimen / Unknown Venipuncture / Unknown 06/24/2025 2:23 AM EDT 06/24/2025 2:50 AM EDT Julian Clarke MD LAB BLOOD ORDERABLES Final R esult Performing Organization Address City/[facility]/ZIP Co de Phone Number [facility] [address] [place] [address], [place] [phone] * (ABNORMAL) Magnesium (06/24/2025 2:23 AM EDT) Magnesium 1.6(L) 1.9 - 2.6 mg/dL LAB CHEMISTRY METHOD 06/24/2025 3:[address] [facility] Blood Venous blood specimen / Unknown Venipuncture / Unknown 06/24/2025 2:23 AM EDT 06/24/2025 2:52 AM EDT Julian Clarke MD LAB BLOOD ORDERABLES Final R esult Performing Organization Address City/[facility]/ZIP Co de Phone Number [facility] [address] [place] [address], [place] [phone] * Lipase (06/24/2025 2:23 AM EDT) Lipase 26 13 - 75 unit/L LAB CHEMISTRY METHOD 06/24/2025 3:[address] [facility] Blood Venous blood specimen / Unknown Venipuncture / Unknown 06/24/2025 2:23 AM EDT 06/24/2025 2:52 AM EDT Julian Clarke MD LAB BLOOD ORDERABLES Final R esult Performing Organization Address [facility] Co de Phone Number [facility] [address] [place] [address], [place] [phone] * Ethanol (06/24/2025 2:23 AM EDT) Ethanol Level <3 0 - 10 mg/dL LAB CHEMISTRY METHOD 06/24/2025 3:[address] [facility] Blood Venous blood specimen / Unknown Venipuncture / Unknown 06/24/2025 2:23 AM EDT 06/24/2025 2:52 AM EDT Julian Clarke MD LAB BLOOD ORDERABLES Final R esult Performing Organization Address City/[facility]/ZIP Co de Phone Number [facility] [address] [place] [address], [place] [phone] * (ABNORMAL) Comprehensive Metabolic Panel (CMP) (06/24/2025 2:23 AM EDT) [facility] Signature Sodium 137 133 - 145 mmol/L LAB CHEMISTRY METHOD 06/24/2025 3:37 AM [facility] Potassium 3.3(L) 3.5 - 5.5 mmol/L LAB CHEMISTRY METHOD 06/24/2025 3:37 AM [facility] Chloride 101 96 - 110 mmol/L LAB CHEMISTRY METHOD 06/24/2025 3:37 AM [facility] CO2 30 21 - 32 mmol/L LAB CHEMISTRY METHOD 06/24/2025 3:37 AM [facility] Anion Gap 6 3 - 11 LAB CHEMISTRY METHOD 06/24/2025 3:37 AM [facility] Glucose 227(H) 70 - 100 mg/dL LAB CHEMISTRY METHOD 06/24/2025 3:37 AM [facility] BUN 11 5 - 25 mg/dL LAB CHEMISTRY METHOD 06/24/2025 3:37 AM [facility] Creatinine 0.76 0.50 - 1.10 mg/dL LAB CHEMISTRY METHOD 06/24/2025 3:37 AM [facility] eGFR 97 >=60 mL/min/1. 73m2 LAB CHEMISTRY METHOD 06/24/2025 3:37 AM [facility] Comment:Calculation based on the Chronic Kidney Disease Epidemiology Collaboration (CKD-EPI) equation refit without adjustment for race. BUN/Creatinine Ratio 14.5 LAB CHEMISTRY METHOD 06/24/2025 3:37 AM [facility] Calcium 9.0 8.5 - 10.5 mg/dL LAB CHEMISTRY METHOD 06/24/2025 3:37 AM [facility] AST (SGOT) 21 10 - 42 unit/L LAB CHEMISTRY METHOD 06/24/2025 3:37 AM EDT [facility] ALT (SGPT) 27 10 - 60 unit/L LAB CHEMISTRY METHOD 06/24/2025 3:[address] [facility] Alkaline Phosphatase 217(H) 42 - 121 unit/L LAB CHEMISTRY METHOD 06/24/2025 3:[address] [facility] Total Protein 6.6 6.0 - 8.0 g/dL LAB CHEMISTRY METHOD 06/24/2025 3:[address] [facility] Albumin 3.7 3.2 - 5.0 g/dL LAB CHEMISTRY METHOD 06/24/2025 3:[address] [facility] Total Bilirubin 0.1 0.0 - 1.4 mg/dL LAB CHEMISTRY METHOD 06/24/2025 3:[address] [facility] Blood Venous blood specimen / Unknown Venipuncture / Unknown 06/24/2025 2:23 AM EDT 06/24/2025 2:52 AM EDT us Julian Clarke MD LAB BLOOD ORDERABLES Final R esult [facility] [address] [place] [address], documented in this encounter Visit Diagnoses Diagnosis [...] First Orde red Date IP CONSULT TO DOG BOARDER 1 06/24/2025 IV Count Last Ordered Date First Orde red Date INSERT PERIPHERAL IV 1 06/24/2025 documented in this encounter Care Teams Technician Relationship Specialty Start Date End Date Maribel Marquez [address] [place] [id number] PCP - General 09/08/24 documented as of this encounter
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
[2025-06-27 22:20] VITALS: BP 170/120; PULSE 135; O2SAT 98
[2025-06-27 22:26] VITALS: BP 158/90; PULSE 90; RESP 22; TEMP 36.6; O2SAT 97; BMI 39.0
[2025-06-27 22:44] LABS: Appearance Urine Clear; Glucose Urine UA Negative (Negative); PH 7.0 (5.0-9.0); Specific Gravity - Urine <= 1.005 (1.005-1.025)
--- NOTE | 2025-06-27 22:51 | ED.PSYCH ---
HPI - Psych General Chief Complaint: Psychiatric Symptoms Stated Complaint: Psych, hearing voices, self harm Time Seen by Provider: 06/27/25 22:43 Source: patient and EMS Mode of arrival: EMS Limitations: no limitations History of Present Illness ED Provider: DR. Allison HPI Narrative: this is a 49-year-old female very well-known to the emergency department with history of PTSD, depression, GERD, type 2 diabetes, borderline personality disorder, chronic auditory and visual hallucination, chronic suicidal ideation, [facility] came by EMS today for evaluation of auditory hallucination telling her to cut herself, patient had several superficial cuts on her left forearm. Patient also complaining of constipation did not have bowel movement for 5 days asking for something to help her to go, otherwise no nausea, no vomiting, no abdominal pain. Related Data Home Medications ?Medication ?Instructions ?Recorded ?Confirmed albuterol sulfate 90 mcg/actuation 2 puff inhalation Q6H PRN Wheezing 06/24/24 06/28/25 aerosol inhaler clozapine 100 mg tablet 200 mg PO BEDTIME 06/24/24 06/28/25 prazosin 2 mg capsule 4 mg PO BEDTIME 06/24/24 06/28/25 metformin 500 mg tablet 500 mg PO BID 07/15/24 06/28/25 atorvastatin 10 mg tablet 10 mg PO DAILY 05/23/25 06/28/25 ferrous sulfate 325 mg (65 mg 325 mg PO BID 05/23/25 06/28/25 iron) tablet fluticasone fur. 200 mcg-umeclid 1 ea inhalation DAILY 05/23/25 06/28/25 62.5 mcg-vilant 25 mcg inhalat.powder (Trelegy Ellipta) glycopyrrolate 1 mg tablet 1 mg PO BID 05/23/25 06/28/25 ibuprofen 600 mg tablet 600 mg PO Q6H PRN Mild Pain (Scale 05/23/25 06/28/25 Score 1-4) lorazepam 0.5 mg tablet 0.5 mg PO BID PRN Anxiety 05/23/25 06/28/25 mirtazapine 15 mg tablet 15 mg PO BEDTIME 05/23/25 06/28/25 montelukast 10 mg tablet 10 mg PO DAILY 05/23/25 06/28/25 ascorbic acid (vitamin C) 500 mg 500 mg PO BID 06/18/25 06/28/25 tablet (Vitamin C) benztropine 1 mg tablet 1 mg PO BID 06/18/25 06/28/25 buspirone 10 mg tablet 10 mg PO BID 06/18/25 06/28/25 famotidine 20 mg tablet 20 mg PO TIDWM 06/18/25 06/28/25 fluoxetine 40 mg capsule 80 mg PO DAILY 06/18/25 06/28/25 naproxen 500 mg tablet 500 mg PO BID PRN Pain (Scale 06/18/25 06/28/25 Score 4-6) pantoprazole 40 mg tablet,delayed 40 mg PO BID 06/18/25 06/28/25 release temazepam 15 mg capsule 15 mg PO BEDTIME PRN Insomnia 06/18/25 06/28/25 Previous Rx's ?Medication ?Instructions ?Recorded amlodipine 2.5 mg tablet 7.5 mg PO DAILY 30 days #90 tabs 06/01/25 haloperidol 5 mg tablet 15 mg (3 x 5 mg) PO BEDTIME 30 06/01/25 days #90 tabs hydrochlorothiazide 12.5 mg tablet 12.5 mg PO DAILY 30 days #30 tabs 06/01/25 nystatin 100,000 unit/gram topical 1 appl topical BID 30 days #30 06/01/25 cream grams acetaminophen 325 mg tablet 650 mg (2 x 325 mg) PO Q6H PRN 06/23/25 Headache/Pain, Scale 1-10 #0 tabs haloperidol 5 mg tablet 5 mg PO BID@0900,1500 #60 tabs 06/23/25 nicotine 21 mg/24 hr daily 21 mg transdermal DAILY PRN 06/23/25 transdermal patch smoking cessation #30 ea trazodone 50 mg tablet 50 mg PO BEDTIME MRX1 PRN Insomnia 06/23/25 #60 tabs Allergies Allergy/AdvReac Type Severity Reaction Status Date / Time azithromycin (AZITHROMYCIN) Allergy Severe Rash Verified 06/29/25 01:37 Fish Containing Products Allergy Severe Anaphylaxis Verified 06/29/25 01:37 codeine (Codeine) Allergy Intermediate Rash Verified 06/29/25 01:37 Penicillins Allergy Intermediate Rash Verified 06/29/25 01:37 prednisone (Prednisone) Allergy Intermediate Rash Verified 06/29/25 01:37 Sulfa (Sulfonamide Allergy Intermediate Rash Verified 06/29/25 01:37 Antibiotics) (Sulfa (Sulfonamides)) ziprasidone (From Geodon) Allergy Intermediate dysuria, Verified 06/29/25 01:37 rash lithium Allergy Unknown Rash Verified 06/29/25 01:37 Review of Systems Review of Systems: All other systems are reviewed and are negative Constitutional: Reports as per HPI and Reports no additional constitutional complaints Eyes: Reports as per HPI and Reports no additional eye complaints Reports system reviewed and no additional complaints, except as documented Cardiovascular: Reports as per HPI and Reports no additional cardiovascular complaints Respiratory: Reports as per HPI and Reports no additional respiratory complaints Gastrointestinal: Reports as per HPI and Reports no additional gastrointestinal complaints Genitourinary: Reports no additional female genitourinary complaints Musculoskeletal: Reports no additional musculoskeletal complaints Skin/Breast: Reports system reviewed and no additional complaints, except as docu Psychiatric: Reports no additional psychiatric complaints Endocrine: Reports no additional endocrine complaints Hematologic/Lymphatic: Reports no additional hematologic/lymphatic complaints Allergic/Immunologic: Reports no additional allergic/immunologic complaints Reports system reviewed and no additional complaints, except as documented and Reports Abnormal speech present [facility] Past Medical History Medical History Suicidal ideation Asthma Suicidal ideation MDD (major depressive disorder), recurrent episode, severe Chest pain Acute anxiety COVID-19 Full body hives Major depression Dizziness Suicide attempt UTI (urinary tract infection) Acetaminophen overdose COVID History of attempted suicide History of non-suicidal self-harm Hypomagnesemia Suicide attempt Suicide attempt by acetaminophen overdose Acetaminophen overdose Depression Diabetes type 2, controlled Borderline personality disorder PTSD (post-traumatic stress disorder) Overdose GERD (gastroesophageal reflux disease) Mood disorder Hyperlipidemia Bronchitis Social History Social History Household Members: Other Household Members Other:: [facility] members Housing: Other Housing Other:: Group Do you presently have visiting nurse or other home services: Yes ([facility] staff manage meds) Unable to assess alcohol history related to: Unknown Alcohol intake: never Comment: sitter in room Patient Tobacco Use Status: Current everyday Tobacco user Tobacco use type: Cigarette Cigarette Packs Per Day: 1 Cigarettes Per Day: 20.0 Years Smoked: 23 Smoked in Last 30 Days: No e-Cigarette/Vaping Use: Never Used Second Hand Smoke Exposure: No Use of substances other than those prescribed or required for medical reasons: No Substance Use Type: Caffiene Advance Directives: No Advance Directives Information Provided: No Do you have a plan to hurt others: No Plan service: No Current occupational status: unemployed and disabled Sexual orientation: Unable to collect Physical Exam Vital Signs: Vital Signs: Last Vital Signs Temp 97.8 F 06/28/25 17:15 Pulse 90 06/28/25 17:15 Resp 22 H 06/28/25 17:15 BP 158/90 H 06/28/25 17:15 Pulse Ox 97 06/27/25 22:26 O2 Del Method Room Air 06/27/25 22:26 BMI result Body Mass Index 39.0 Vital signs have been reviewed and appear to be correct. Blood pressure elevated. Heart rate normal. Respiratory rate normal. Temperature normal. Oxygen saturation normal. Appearance: Alert. Oriented X3. No acute distress. Head: Normal external exam. Normocephalic. Atraumatic. No Harper signs noted. No raccoon eyes noted Eyes: PERRLA. EOMI. Conjunctiva and sclera normal. Eyelids normal. ENT: TM's Normal. Pharynx normal. Uvula midline. Moist mucous membranes. No trismus noted. No drooling noted. No muffled voice noted. Neck: Normal inspection. Neck supple. FROM. No adenopathy. Thyroid Normal. No meningeal signs. No neck mass noted. CVS: Normal heart rate and rhythm. Heart sound normal. No murmurs noted. Pulses normal throughout. Respiratory: No respiratory distress. Painless inspiration. Breath sounds normal. No wheezes/rales/rhonchi noted. Chest nontender. No accessory muscle usage noted or decreased air movement noted. Abdomen: Soft and nontender. Bowel sounds normal in all 4 quadrants. No distention noted. No organomegaly noted. No visible injury noted. Back: No CVA tenderness. Full range of motion noted. Skin: Skin warm and dry. Normal skin color. Normal skin turgor. No rashes/lesions/lacerations noted. Extremities: No lower extremity edema. Extremities exhibit normal range of motion. Extremities nontender. Neuro: Oriented X 3. Cranial nerve exam: II-XII are grossly intact No motor deficit. No sensory deficit. Reflexes normal. Patient Orientation: Person, Place, Time and Situation, okay hygiene and grooming. Fair eye contact, attentive, no tics or tremors. Level of Consciousness: Awake, Appropriate and Alert Patient Behavior: Appropriate, Guarded, Cooperative and Anxious Mood Description: Constricted, Blunted and Apprehensive Affect Description: Constricted, Blunted and Apprehensive Patient Cognition Impaired: No Ability to Follow Directions: Excellent Speech Pattern: Clear, Appropriate and Spontaneous Speech, nonpressured, spontaneous with regular rate and rhythm, normal volume and prosody. No dysarthria. Memory Description: Intact, Immediate Intact and Short Term Intact Hallucinations: Auditory hallucination is present. Delusions: Not Present Thought Process: Intact Thought Content: positive for Intact, +SI with no specific plan, +superficial laceration on the left forearm, + auditory hallucination, no HI. Depressive Symptoms: Not present. Judgement and Insight: Limited but adequate. Course Reevaluation(s) Reevaluation #1: DR. Allison's Progress note: 06/27/2025: 2330 49-year-old female well known to us with extensive psych history and chronic auditory hallucination and suicidal ideation presented with her usual presentation of SI and auditory hallucination. will clear her medically, care team evaluation, will start physician observation now. Time: 23:30 Reevaluation #2: Time: 10:52 Date: 06/28/25 Provider: Vito Mitchell MD Patient in physician observation for psychiatric evaluation.? No acute events reported overnight. No current complaints. VS stable.? Patient is in bed search status/pending CARE team evaluation. Will continue to monitor. Reevaluation #3: Time: 16:00 Date: 06/28/25 Provider: Vito Mitchell MD Physician observation ended at 15:00 Patient has been cleared for discharge by the CARE team. Medications Administered Discontinued Medications Generic Name Dose Route Start Last Admin Trade Name Bradleyq PRN Reason Stop Dose Admin Amlodipine Besylate 7.5 mg 06/28/25 09:00 06/28/25 08:56 Amlodipine Besylate 2.5 Mg Tablet PO 7.5 mg DAILY YULY Administration Protocol Ascorbic Acid 500 mg 06/28/25 09:00 06/28/25 08:57 Ascorbic Acid 500 Mg Tablet PO 500 mg BID YULY Administration Atorvastatin Calcium 10 mg 06/28/25 09:00 06/28/25 08:57 Atorvastatin Calcium 10 Mg Tablet PO 10 mg DAILY YULY Administration Benztropine Mesylate 1 mg 06/28/25 09:00 06/28/25 08:57 Benztropine Mesylate 1 Mg Tablet PO 1 mg BID YULY Administration Buspirone HCl 10 mg 06/28/25 09:00 06/28/25 08:57 Buspirone Hcl 10 Mg Tablet PO 10 mg BID YLUY Administration Clozapine 200 mg 06/28/25 06:00 06/28/25 06:41 Clozapine 100 Mg Tablet PO Not Given BEDTIME YULY Famotidine 20 mg 06/28/25 08:00 06/28/25 12:24 Famotidine 20 Mg Tablet PO 20 mg TIDWM YULY Administration Ferrous Sulfate 324 mg 06/28/25 09:00 06/28/25 08:57 Ferrous Sulfate 324 Mg Tablet.Dr PO 324 mg BID YULY Administration Fluoxetine HCl 80 mg 06/28/25 09:00 06/28/25 08:57 Fluoxetine Hcl 20 Mg Capsule PO 80 mg DAILY YULY Administration Fluticasone/Umeclidinium/Vilanterol 1 puff 06/28/25 08:00 06/28/25 10:04 Fluticasone/Umeclidinium/Vilanterol 200/62.5 Blst.W.Dev INHALE Not Given RDAILY YULY Glycopyrrolate 1 mg 06/28/25 09:00 06/28/25 08:57 Glycopyrrolate 1 Mg Tablet PO 1 mg BID YULY Administration Haloperidol 5 mg 06/28/25 09:00 06/28/25 14:41 Haloperidol 5 Mg Tablet PO 5 mg BID@0900,1500 YULY Administration Haloperidol 15 mg 06/28/25 06:00 06/28/25 06:40 Haloperidol 5 Mg Tablet PO Not Given BEDTIME YULY Hydrochlorothiazide 12.5 mg 06/28/25 09:00 06/28/25 08:57 Hydrochlorothiazide 12.5 Mg Tablet PO 12.5 mg DAILY YULY Administration Protocol Metformin HCl 500 mg 06/28/25 08:00 06/28/25 08:57 Metformin Hcl 500 Mg Tablet PO 500 mg BIDWM YULY Administration Mirtazapine 15 mg 06/28/25 06:00 06/28/25 06:41 Mirtazapine 15 Mg Tablet PO Not Given BEDTIME YULY Montelukast Sodium 10 mg 06/28/25 09:00 06/28/25 08:57 Montelukast Sodium 10 Mg Tablet PO 10 mg DAILY YULY Administration Omeprazole 20 mg 06/28/25 07:00 06/28/25 14:40 Omeprazole 20 Mg Capsule. PO 20 mg BID@5188,3652 YULY Administration Polyethylene Glycol 17 gm 06/27/25 22:51 06/27/25 23:07 Polyethylene Glycol 3350 17 Gm Powd.Pack PO 06/27/25 22:52 17 gm ONCE ONE Administration Prazosin HCl 4 mg 06/28/25 06:00 06/28/25 06:41 Prazosin Hcl 1 Mg Capsule PO Not Given BEDTIME [facility] Protocol Medical Decision Making Differential Diagnosis Differential Diagnoses: The differential diagnosis associated with the presentation includes ( medical clearance, electrolyte derangement, severe anemia, UTI, acute psychosis.) Admission/Observation Consideration of admission/observation: Escalation of care including admission/observation considered Lab Data MDM Lab Attestation statement: I reviewed the patient's lab results. 06/27/25 22:51 06/27/25 22:51 Labs: Lab Results 06/27/25 06/27/25 Range/Units 22:38 22:51 WBC 9.2 (4.8-10.8) X10*3/uL RBC 3.78 L (4.20-5.50) X10*6/uL Hgb 11.9 L (12.0-16.0) g/dl Hct 34.8 L (37.0-47.0) % MCV 92.1 (80.0-98.0) fL MCH 31.5 (27.0-33.0) pg MCHC 34.2 (31.0-35.0) g/dl RDW 13.0 (11.0-16.0) % Plt Count 267 (160-400) X10*3/uL MPV 8.9 L (9.4-12.3) fL Immature Gran % (Auto) 0.9 H (0.0-0.4) % Neut % (Auto) 69.0 (45-73) % Lymph % (Auto) 17.7 L (20-40) % [place] % (Auto) 8.3 (2-11) % Eos % (Auto) 3.6 (0-4) % Baso % (Auto) 0.5 (0-2) % Lymph # (Auto) 1.6 (1.2-4.9) X10*3/uL [place] # (Auto) 0.8 (0.1-1.2) X10*3/uL Eos # (Auto) 0.3 (0.0-0.4) X10*3/uL Baso # (Auto) 0.1 (0.0-0.2) X10*3/uL Abs Immat Gran (auto) 0.08 H (0.00-0.03) X10*3/uL Absolute Neuts (auto) 6.3 (2.0-8.3) x10*3/uL Absolute Nucleated RBC 0.000 (0.0-0.012) X10*3/uL Nucleated RBC % (auto) 0.0 (0.0-0.2) /100WBC Sodium 141 (135-145) mmol/L Potassium 3.7 (3.3-5.1) mmol/L Chloride 104 (96-108) mmol/L Carbon Dioxide 24 (22-29) mmol/L Anion Gap 17 (12-20) BUN 8 L (9-16) mg/dL Creatinine 0.60 (0.5-1.4) mg/dL Estim Creat Clear Calc 135.4 Estimated GFR > 60 Random Glucose 124 H (60-115) mg/dL Calcium 8.7 D (8.4-10.2) mg/dL Total Bilirubin 0.2 (0.0-1.0) mg/dL AST 34 H (5-31) U/L ALT 34 H (0-31) U/L Alkaline Phosphatase 141 H (39-117) U/L Total Protein 6.6 (6.5-8.0) g/dL Albumin 4.3 (3.5-5.0) g/dL Beta HCG, Quant < 2 mIU/mL Urine Color Yellow Urine Appearance Clear Urine pH 7.0 (5.0-9.0) Ur Specific Red Level <= 1.005 (1.005-1.025) Urine Protein Negative (Neg-Trace) mg/dL Urine Glucose (UA) Negative (Negative) mg/dL Urine Ketones Negative (Negative) mg/dL Urine Blood Negative (Negative) Urine Nitrite Negative (Negative) Ur Leukocyte Esterase Negative (Negative) Salicylates < 5.0 L (15-30) mg/dL Urine Opiates Screen Not Detected (Not Detect) Ur Buprenorphine Scrn Not Detected (Not Detect) ng/mL Ur Oxycodone Screen Not Detected (Not Detect) ng/mL Urine Methadone Screen Not Detected (Not Detect) ng/mL Urine Fentanyl Screen Not Detected (Not Detect) Ur Barbiturates Screen Not Detected (Not Detect) Ur Phencyclidine Scrn Not Detected (Not Detect) Ur Amphetamines Screen Not Detected (Not Detect) U Benzodiazepines Scrn Not Detected (Not Detect) Urine Cocaine Screen Not Detected (Not Detect) U Marijuana (THC) Screen Not Detected (Not Detect) Discharge Plan Discharge Clinical Impression: Auditory hallucinations Patient Disposition: Home, Self-Care Additional Instructions: Please continue your regular medications. Please follow up with your regular providers. Return to the emergency room if significantly worse. You were seen in our Emergency Department today for treatment of a behavioral health issue. It is important after your visit that you follow up with either your behavioral health provider or a primary care doctor within 7 days.? If you have trouble finding a therapist you can reach out to [address] [phone] [facility] can be reached 7 days a week 24 hours a day.? Call [phone] to speak with someone.? Return for any worsening symptoms or concerns such as thoughts of self harm or harm to others. Please call 911 if you feel your mental health is worsening.? Prescriptions: No Action glycopyrrolate 1 mg tablet 1 mg PO BID atorvastatin 10 mg tablet 10 mg PO DAILY lorazepam 0.5 mg tablet 0.5 mg PO BID PRN (Reason: Anxiety) Rx Instructions: Take 1 tablet at 9am and 1 tablet at 4pm ferrous sulfate 325 mg (65 mg iron) tablet 325 mg PO BID montelukast 10 mg tablet 10 mg PO DAILY mirtazapine 15 mg tablet 15 mg PO BEDTIME ibuprofen 600 mg tablet 600 mg PO Q6H PRN (Reason: Mild Pain (Scale Score 1-4)) Trelegy Ellipta 200-62.5-25 mcg blister with device 1 ea inhalation DAILY fluoxetine 40 mg Capsule 80 mg PO DAILY famotidine 20 mg Tablet 20 mg PO TIDWM ascorbic acid (vitamin C) [Vitamin C] 500 mg Tablet 500 mg PO BID buspirone 10 mg Tablet 10 mg PO BID benztropine 1 mg Tablet 1 mg PO BID naproxen 500 mg Tablet 500 mg PO BID PRN (Reason: Pain (Scale Score 4-6)) temazepam 15 mg Capsule 15 mg PO BEDTIME PRN (Reason: Insomnia) pantoprazole 40 mg Tablet,Delayed Release (Dr/Ec) 40 mg PO BID acetaminophen 325 mg Tablet 650 mg PO Q6H PRN (Reason: Headache/Pain, Scale 1-10) Qty: 0 0RF haloperidol 5 mg Tablet 5 mg PO BID@0900,1500 Qty: 60 0RF trazodone 50 mg Tablet 50 mg PO BEDTIME MRX1 PRN (Reason: Insomnia) Qty: 60 0RF nicotine 21 mg/24 hr Patch 24 Hour 21 mg transdermal DAILY PRN (Reason: smoking cessation) Qty: 30 0RF clozapine 100 mg tablet 200 mg PO BEDTIME albuterol sulfate 90 mcg/actuation HFA aerosol inhaler 2 puff inhalation Q6H PRN (Reason: Wheezing) prazosin 2 mg capsule 4 mg PO BEDTIME metformin 500 mg tablet 500 mg PO BID amlodipine 2.5 mg Tablet 7.5 mg PO DAILY 30 Days Qty: 90 0RF Protocol: Hold for SBP< HOLD for SBP < : 90 nystatin 100,000 unit/gram Cream 1 appl topical BID 30 Days Qty: 30 0RF Protocol: Apply to: Apply to: affected area hydrochlorothiazide 12.5 mg Tablet 12.5 mg PO DAILY 30 Days Qty: 30 0RF Protocol: Hold for SBP< HOLD for SBP < : 90 haloperidol 5 mg Tablet 15 mg PO BEDTIME 30 Days Qty: 90 0RF Referrals: Maribel Marquez NP [Nurse Practitioner, Medical] Interventions: Graham-Suicide Risk Severity Scale Last Done: 06/27/25 22:59 ED Discharge Assessment Last Done: 06/28/25 17:15 Discharge Date/Time: 06/28/25 17:22 Print Language: Senegalese
[2025-06-27 22:54] LABS: Cannabinoid Screen Urine Not Detected (Not Detect)
[2025-06-27 22:56] LABS: MANUAL DIFF FLAG NO
--- OUTSIDE RECORDS SUMMARY | 2025-06-27 22:56 | XMS_ITS | Clinical Summary ---
Author Organization [facility] Address [address] [address] Phone Care Team Providers Care Director Business Development Name Role Phone Maribel Marquez NP Primary Care Provider + Allergies Active Allergy Reactions Criticality Noted Date Comments Azithromycin 05/18/2023 Codeine 04/21/2009 Unknown reaction [place] Other (See Comments) 02/27/2013 pt reports 01/17/13 [...] EST) SODIUM 140 136 - 145 mmol/L [facility] POTASSIUM 3.7 3.4 - 5.1 mmol/L [facility] CHLORIDE 102 98 - 107 mmol/L [facility] CO2 23 22 - 31 mmol/L [facility] BUN 12 6 - 23 mg/dL [facility] CREATININE 0.63 0.50 - 1.20 mg/dL [facility] GLUCOSE 160(H) 70 - 100 mg/dL [facility] CALCIUM 9.2 8.8 - 10.7 mg/dL [facility] EGFR 111 >59 mL/min/1.7 3m2 [facility] Comment:Estimated glomerular filtration rate calculated using the CKD-EPI refit equation. ANION GAP 15 7 - 17 mmol/L [facility] Blood 08/24/2024 3:05 AM EST 08/24/2024 3:15 AM EST Parvez Duenas MD, MPH LAB BLOOD ORDERABLES F inal Result [facility] [address] [place] [id number] from Last 3 Months or Most Recently Relevant to Health Maintenance Insurance [facility] MEDICARE PART A & [facility] [place] [facility] [place] PART [place] B [facility] MEDICARE PART A & B Care Teams Director Business Development Relationship Specialty Start Date End Date Maribel Marquez NP [address] [place] [address] PCP - General Nurse Practitioner 04/02/24 Additional Source Comments The information contained in this document represents components of the legal health record. It is not the complete legal health record.[facility]
--- OUTSIDE RECORDS SUMMARY | 2025-06-27 22:56 | XMS_ITS | Clinical Summary ---
Author Organization [facility] Address [address] [place] [phone] Phone Care Team Providers Care Scrum Master Name Role Phone Alma Maribel Primary Care Provider [phone] Allergies Active Allergy Reactions Criticality Noted Date Comments Azithromycin Rash Low 09/07/2024 Codeine Unknown 09/07/2024 Pt doesn't recall Fish Derived Unknown 10/14/2024 Ziprasidone Hcl Unknown 09/07/2024 Pt doesn't recall [place] Unknown 09/07/2024 Pt doesn't recall Nitrofurantoin Monohyd/M-Cryst [...] total) by mouth at bedtime. 5 Active docusate sodium (COLACE) 100 mg capsule Take 1 capsule (100 mg total) by mouth every 12 (twelve) hours. 60 capsule 5 025 Active psyllium (METAMUCIL) 3.4 gram packet Take 1 packet by mouth 1 (one) time each day. 30 packet 5 026 Active albuterol sulfate 90 mcg/actuation aerosol powdr [...] Encounters Date Type Department Care Team Description 06/26/2025 9:39 PM EDT - 06/27/2025 1:34 AM EDT [facility] [address] [place] [phone] Constipation, unspecified constipation type (Primary Dx) Discharge Disposition: Home or Self Care 06/24/2025 1:59 AM EDT - 06/24/2025 10:03 AM EDT [facility] [address] [place] [phone] Julian Clarke MD Wire, Jessica, MD Suicidal ideation (Primary Dx); Hallucinations; Epigastric abdominal pain Discharge Disposition: Home or Self Care 06/17/2025 3:00 AM EDT - 06/17/2025 4:44 PM EDT [facility] [address] [place] [phone] Aureliano Crump MD Mersier, Jasmine, DO Auditory hallucinations (Primary Dx); Intentional self-harm by sharp object, initial encounter ([facility] V24, [facility] V28) Discharge Disposition: [facility] 06/03/2025 1:03 AM EDT - 06/03/2025 10:30 AM EDT [facility] [address] [place] [phone] Rudi Hilliard MD Franco, Andrew S, MD Suicidal ideations (Primary Dx); Dermoid cyst of right ovary; Acute UTI Discharge Disposition: Home or Self Care 05/25/2025 Lab Requisition [facility] - Main Lab [address] [facility] [place] [phone] Wanda Cleveland NP Other fpc (current) drug therapy 05/18/2025 6:33 PM EDT - 05/18/2025 9:54 PM EDT [facility] [address] [place] [phone] Janine Stewart DO Auditory hallucinations (Primary Dx); Deliberate self-cutting Discharge Disposition: Home or Self Care 05/02/2025 8:55 PM EDT - 05/03/2025 10:35 AM EDT [facility] [address] [place] [phone] Karolina Gracia MD Goebel, Mathew, MD Suicidal ideation (Primary Dx) Discharge Disposition: Home or Self Care 04/18/2025 8:18 PM EDT - 04/18/2025 10:04 PM EDT [facility] [address] [place] [phone] Rosemary Cash DO Auditory hallucinations (Primary Dx) Discharge Disposition: Home or Self Care 04/11/2025 9:55 PM EDT - 04/12/2025 9:36 AM EDT [facility] [address] [place] [phone] Rosemary Cash DO Montano, Gary L, MD Borderline personality disorder (CMS/HCC V24, CMS/HCC V28) (Primary Dx) Discharge Disposition: Home or [...] DX:Hypertension Asthma 07/13/1999 DX:Asthma Bipolar disorder ([facility] V2 4, [facility] V28) 12/12/2005 DX:Bipolar disorder ([facility]) GERD (gastroesophageal reflux disease) 01/20/2016 DX:GERD (gastroesophageal reflux disease) History of pseudoseizure 06/10/2012 DX:Hist ory of pseudoseizure Hypercholesteremia 07/17/2007 DX:Hyperchole steremia Tobacco use disorder 02/17/2010 DX:Tobacco use disorder Migraine 06/25/2017 DX:Migraine; COM MENT: Follows with neurologist PTSD (post-traumatic stress disorder) 01/20/2016 DX:PTSD (post-traumatic stress disorder) Borderline personality disor pritesh ([facility] V24, [facility] V28) 06/26/2017 DX:Borderline personality d isorder ([facility]) Marijuana use 06/26/2017 DX:Marijuana use First degree AV block 10/09/2017 DX:First d egree AV block; COMMENT: Follows with [place] [facility] 09/2017. Holter pending Pericardial effusion 10/09/2017 DX:Pericard ial effusion; COMMENT: TTE while hospitalized 09/2017 follows with [place] [facility]. Repeat TTE ordered. Not hemodynamically significant Depression 09/02/2002 DX:Depression; C OMMENT: S/p multiple psych admissions for suicide attempts and self harm. Overdosing on aspirin, tylenol, ibuprofen Obesity (BMI 30-39.9) 06/24/2019 DX:Obesity (BMI 30-39.9) Suicide attempt by acetamino phen overdose ([facility] V24, [facility] V28) 10/26/2020 DX:Suicide attempt by acetaminophen overdose ([facility]); COMMENT: 09/19/2020 Family History Medical [...] Mass Index 38.96 06/26/2025 9:28 PM EDT Plan of Treatment Health Maintenance [...] 06/13/20 22, 06/07/2021, 05/27/2020, Additional history exists Diabetes: Annual Urine Albumin-Creatinine Ratio (uACR) 09/08/2024 Diabetes: Blood Sugar Control Test (HGBA1C) 09/08/2024 Depression Screening 10/15/2024 COVID-19 Vaccine ( season) 2025 12/01/2020, 11/10/2020 Influenza Vaccine (#1) 2025 , 08/08/2023, 11/14/2022, Additional history exists Diabetes: Annual GFR (Glomerular Filtration Rate) 06/26/2026 06/26/2025, 06/24/2025, 06/17/2025, Additional history exists Hypertension/CHF/CAD Annual BMP Blood Test 06/26/2026 06/26/2025, 06/24/2025, 06/17/2025, Additional history exists Cervical Cancer Screening: Pap [...] 10:07 PM EDT HCG, SERUM, QUALITATIVE STAT 06/26/20 10:07 PM EDT ECG ANNOTATED 06/25/2025 POC , URINE DIAGNOSTIC STAT 06/24/2025 3:15 AM EDT DRUG ABUSE SCREEN 8A PANEL, URINE STAT 06/24/2025 3:15 AM EDT URINALYSIS WITH REFLEX MICROSCOPIC STAT 06/24/2025 3:15 AM EDT URINALYSIS WITH REFLEX MICROSCOPIC STAT 06/24/2025 3:15 AM EDT US ABDOMEN LIMITED STAT 06/24/2025 2: 55 AM EDT ECG 12-LEAD STAT 06/24/2025 2:32 AM EDT ACETAMINOPHEN LEVEL STAT Add-on 06/24/2025 2 :23 AM EDT SALICYLATE LEVEL STAT Add-on 06/24/2025 2:23 AM EDT TROPONIN I HIGH SENSITIVITY STAT 06/24/2025 2:23 AM EDT CBC WITH AUTO DIFFERENTIAL STAT 06/24/2025 2:23 AM EDT CBC AND DIFFERENTIAL STAT 06/24/2025 2:23 AM EDT LACTATE, WITH REFLEX STAT 06/24/2025 2:23 AM EDT MAGNESIUM STAT 06/24/2025 2:23 AM EDT LIPASE STAT 06/24/2025 2:23 AM EDT ETHANOL STAT 06/24/2025 2:23 AM EDT COMPREHENSIVE METABOLIC PANEL STAT 06/24/2025 2:23 AM EDT ECG ANNOTATED 06/18/2025 POC , URINE DIAGNOSTIC STAT 06/17/2025 6:27 [...] Recently Relevant to Health Maintenance Results * Lipase (06/26/2025 11:25 PM EDT) Only the most recent of3 resultswithin the time period is included. Lipase 23 13 - 75 unit/L LAB CHEMISTRY METHOD 06/27/2025 12:29 AM EDT [facility] Blood Venous blood specimen / Unknown Venipuncture / Unknown 06/26/2025 11:25 PM EDT 06/26/2025 11:49 PM EDT Julio CAPELLAN LAB BLOOD ORDERABLES Final Result [facility] [address] [place] [address], * (ABNORMAL) Comprehensive Metabolic Panel (CMP) (06/26/2025 11:25 PM EDT) Only the most recent of7 resultswithin the time period is included. Pathologist [facility] Sodium 137 133 - 145 mmol/L LAB CHEMISTRY METHOD 06/27/2025 12:32 AM [facility] Potassium 3.3(L) 3.5 - 5.5 mmol/L LAB CHEMISTRY METHOD 06/27/2025 12:32 AM [facility] Chloride 103 96 - 110 mmol/L LAB CHEMISTRY METHOD 06/27/2025 12:32 AM [facility] CO2 26 21 - 32 mmol/L LAB CHEMISTRY METHOD 06/27/2025 12:32 AM [facility] Anion Gap 8 3 - 11 LAB CHEMISTRY METHOD 06/27/2025 12:32 AM [facility] Glucose 114(H) 70 - 100 mg/dL LAB CHEMISTRY METHOD 06/27/2025 12:32 AM [facility] BUN 9 5 - 25 mg/dL LAB CHEMISTRY METHOD 06/27/2025 12:32 AM [facility] Creatinine 0.66 0.50 - 1.10 mg/dL LAB CHEMISTRY METHOD 06/27/2025 12:32 AM [facility] eGFR 109 >=60 mL/min/1. 73m2 LAB CHEMISTRY METHOD 06/27/2025 12:32 AM [facility] Comment:Calculation based on the Chronic Kidney Disease Epidemiology Collaboration (CKD-EPI) equation refit without adjustment for race. BUN/Creatinine Ratio 13.6 LAB CHEMISTRY METHOD 06/27/2025 12:32 AM [facility] Calcium 8.1(L) 8.5 - 10.5 mg/dL LAB CHEMISTRY METHOD 06/27/2025 12:32 AM [facility] AST (SGOT) 28 10 - 42 unit/L LAB CHEMISTRY METHOD 06/27/2025 12:32 AM [facility] ALT (SGPT) 30 10 - 60 unit/L LAB CHEMISTRY METHOD 06/27/2025 12:32 AM [facility] Alkaline Phosphatase 155(H) 42 - 121 unit/L LAB CHEMISTRY METHOD 06/27/2025 12:32 AM [facility] Total Protein 5.9(L) 6.0 - 8.0 g/dL LAB CHEMISTRY METHOD 06/27/2025 12:32 AM [facility] Albumin 3.2 3.2 - 5.0 g/dL LAB CHEMISTRY METHOD 06/27/2025 12:32 AM [facility] Total Bilirubin 0.2 0.0 - 1.4 mg/dL LAB CHEMISTRY METHOD 06/27/2025 12:32 AM [facility] Blood Venous blood specimen / Unknown Venipuncture / Unknown 06/26/2025 11:25 PM EDT 06/26/2025 11:49 PM EDT us Julio CAPELLAN LAB BLOOD ORDERABLES Final Result [facility] [address] [place] [address], * CBC (06/26/2025 10:07 PM EDT) WBC 10.0 4.8 - 10.8 K/mcL LAB HEMETOLOGY METHOD 06/26/2025 10:52 PM EDT [facility] RBC 3.90 3.80 - 4.80 M/mcL LAB HEMETOLOGY METHOD 06/26/2025 10:52 PM EDT [facility] Hemoglobin 12.1 11.5 - 16.0 g/dL LAB HEMETOLOGY METHOD 06/26/2025 10:52 PM EDT [facility] Hematocrit 35.8 35.0 - 47.0 % LAB HEMETOLOGY METHOD 06/26/2025 10:52 PM EDT [facility] MCV 92.0 79.0 - 98.0 FL LAB HEMETOLOGY METHOD 06/26/2025 10:52 PM EDT [facility] MCH 31.1 27.0 - 32.0 pcg LAB HEMETOLOGY METHOD 06/26/2025 10:52 PM EDT [facility] MCHC 33.8 32.0 - 37.0 g/dL LAB HEMETOLOGY METHOD 06/26/2025 10:52 PM EDT [facility] RDW 12.7 11.0 - 15.0 % LAB HEMETOLOGY METHOD 06/26/2025 10:52 PM EDT [facility] Platelets 287 130 - 400 K/mcL LAB HEMETOLOGY METHOD 06/26/2025 10:52 PM EDT [facility] MPV 9.6 7.0 - 11.0 FL LAB HEMETOLOGY METHOD 06/26/2025 10:52 PM EDT [facility] NRBC 0.0 <1.0 % LAB HEMETOLOGY METHOD 06/26/2025 10:52 PM EDT [facility] NRBC Absolute 0.00 <0.10 K/mcL LAB HEMETOLOGY METHOD 06/26/2025 10:52 PM EDT [facility] Blood Venous blood specimen / Unknown Venipuncture / Unknown 06/26/2025 10:07 PM EDT 06/26/2025 10:43 PM EDT Julio CAPELLAN LAB BLOOD ORDERABLES Final Result [facility] [address] [place] [address], [place] [phone] * hCG Qualitative (06/26/2025 10:07 PM EDT) Only the most recent of2 resultswithin the time period is included. hCG Qual Negative Negative 06/26/2025 11:17 PM EDT [facility] Blood Venous blood specimen / Unknown Venipuncture / Unknown 06/26/2025 10:07 PM EDT 06/26/2025 10:43 PM EDT Julio CAPELLAN LAB BLOOD ORDERABLES Final Result [facility] [address] [place] [address], [place] [phone] * ECG-Annotated (06/25/2025) Only the most recent of4 resultswithin the time period is included. Provider Onbase MD ECG ORDERABLES Final Result * Urinalysis with reflex microscopic (06/24/2025 3:15 AM EDT) Only the most recent of2 resultswithin the time period is included. Specific [place] Urine 1.009 1.003 - 1.030 LAB URINALYSIS - AUTOMATED METHOD 06/24/2025 4:10 AM [facility] pH, Urine 6.5 5.0 - 8.0 pH LAB URINALYSIS - AUTOMATED METHOD 06/24/2025 4:10 AM [facility] Leukocytes, Urine Negative Negative LAB URINALYSIS - AUTOMATED METHOD 06/24/2025 4:10 AM [facility] Nitrite, Urine Negative Negative LAB URINALYSIS - AUTOMATED METHOD 06/24/2025 4:10 AM [facility] Protein, Urine Negative <=Trace mg/dL LAB URINALYSIS - AUTOMATED METHOD 06/24/2025 4:10 AM [facility] Glucose, Urine Negative Negative mg/dL LAB URINALYSIS - AUTOMATED METHOD 06/24/2025 4:10 AM [facility] Ketones, Urine Negative Negative mg/dL LAB URINALYSIS - AUTOMATED METHOD 06/24/2025 4:10 AM [facility] Urobilinogen, Urine 0.2 0.2 - 1.0 mg/dL LAB URINALYSIS - AUTOMATED METHOD 06/24/2025 4:10 AM [facility] Bilirubin, Urine Negative Negative LAB URINALYSIS - AUTOMATED METHOD 06/24/2025 4:10 AM [facility] Blood, Urine Negative Negative LAB URINALYSIS - AUTOMATED METHOD 06/24/2025 4:10 AM [facility] Urine Urine specimen obtained by clean catch procedure / Unknown Non-blood Collection / Unknown 06/24/2025 3:15 AM EDT 06/24/2025 3:53 AM EDT us Julian Clarke MD LAB URINE ORDERABLES Final R esult [facility] [address] [place] [address], * Drug abuse screen 8a panel, urine (06/24/2025 3:15 AM EDT) Only the most recent of6 resultswithin the time period is included. Amphetamine Screen, Ur Negative Negative LAB CHEMISTRY METHOD 06/24/2025 4:14 AM [facility] Comment:Certain OTC medicati ons containing ephedrine, phenylephrine, pseudoephedrine and phenylpropanolamine can cause false positive results. Barbiturate Screen, Ur Negative Negative LAB CHEMISTRY METHOD 06/24/2025 4:14 AM [facility] Benzodiazepine Screen, Ur Negative Negative LAB CHEMISTRY METHOD 06/24/2025 4:14 AM [facility] Cocaine Screen, Ur Negative Negative LAB CHEMISTRY METHOD 06/24/2025 4:14 AM [facility] Opiate Screen, Ur Negative Negative LAB CHEMISTRY METHOD 06/24/2025 4:14 AM [facility] Cannabinoid (THC) Screen, Ur Negative Negative LAB CHEMISTRY METHOD 06/24/2025 4:14 AM [facility] Comment:Specimens from patie nts taking pantoprazole sodium (Protonix) have been shown to produce false positive results. Oxycodone Screen, Ur Negative Negative LAB CHEMISTRY METHOD 06/24/2025 4:14 AM [facility] Fentanyl, Ur Negative Negative LAB CHEMISTRY METHOD 06/24/2025 4:14 AM [facility] Urine Urine specimen obtained by clean catch procedure / Unknown Non-blood Collection / Unknown 06/24/2025 3:15 AM EDT 06/24/2025 3:53 AM EDT [facility] - 06/24/2025 4:14 AM EDT Assay [...] MD LAB URINE ORDERABLES Final R esult [facility] ([facility] [address] [place] [address], [place] [phone] * POC , urine manually resulted (06/24/2025 3:15 AM EDT) Only the most recent of5 resultswithin the time period is included. HCG, [...] * 12-Lead ECG (06/24/2025 2:32 AM EDT) Only the most recent of4 resultswithin the time period is included. Ventricular Rate ECG 109 BPM GEMUSE Atrial Rate 109 BPM GEMUSE P-R Interval 164 ms GEMUSE QRS Duration 90 ms GEMUSE Q-T Interval 366 ms GEMUSE QTc 492 ms GEMUSE P Wave [place] 46 degrees GEMUSE R [place] 24 degrees GEMUSE T [place] 45 degrees GEMUSE ECG Interpretation Sinus tachycardia Possible Left atrial enlargement When compared with ECG of 17-JUN-2025 04:17, No significant change was found Confirmed by KODY HARRIS ([id number]) on 06/24/2025 7:50:56 PM GEMUSE 06/24/2025 2:32 AM EDT 06/24/2025 7:50 PM EDT Julian Clarke MD ECG ORDERABLES Final Result GEMUSE * Lactate, with Reflex (06/24/2025 2:23 AM EDT) LACTIC ACID 1.9 0.4 - 2.0 mmol/L LAB CHEMISTRY METHOD 06/24/2025 3:21 AM EDT [facility] Blood Venous blood specimen / Unknown Venipuncture / Unknown 06/24/2025 2:23 AM EDT 06/24/2025 2:50 AM EDT Julian Clarke MD LAB BLOOD ORDERABLES [facility] Performing Organization Address City/[facility] Co de Phone Number [facility] [address] [place] [address], [place] [phone] * Troponin I High Sensitivity (06/24/2025 2:23 AM EDT) Only the most recent of2 resultswithin the time period is included. [facility] High Sensitivity Troponin I 4 <=54 ng/L LAB CHEMISTRY METHOD 06/24/2025 3:21 AM EDT [facility] Blood Venous blood specimen / Unknown Venipuncture / Unknown 06/24/2025 2:23 AM EDT 06/24/2025 2:51 AM EDT Narrative [facility] - 06/24/2025 3:21 AM EDT High levels of biotin in samples may falsely decrease hsTroponin values. Use caution when interpreting hsTroponin results in patients taking biotin who exhibit renal impairment (eGFR <60) or in patients taking more than 20 mg/day of biotin. Julian Clarke MD LAB BLOOD ORDERABLES Final R [facility] Performing Organization Address [facility] Co de Phone Number [facility] [address] [place] [address], [place] [phone] * (ABNORMAL) CBC auto differential (06/24/2025 2:23 AM EDT) Only the most recent of6 resultswithin the time period is included. [facility] WBC 7.9 4.8 - 10.8 K/[facility] LAB HEMETOLOGY METHOD 06/24/2025 2:58 AM EDT [facility] RBC 3.90 3.80 - 4.80 M/[facility] LAB HEMETOLOGY METHOD 06/24/2025 2:58 AM EDT [facility] Hemoglobin 12.1 11.5 - 16.0 g/dL LAB HEMETOLOGY METHOD 06/24/2025 2:58 AM [facility] Hematocrit 36.7 35.0 - 47.0 % LAB HEMETOLOGY METHOD 06/24/2025 2:58 AM [facility] MCV 93.6 79.0 - 98.0 FL LAB HEMETOLOGY METHOD 06/24[facility]2025 2:[facility] MCH 30.9 27.0 - 32.0 pcg LAB HEMETOLOGY METHOD 06/24/2025 2:58 AM [facility] MCHC 33.0 32.0 - 37.0 g/dL LAB HEMETOLOGY METHOD 06/24/2025 2:58 AM [facility] RDW 12.7 11.0 - 15.0 % LAB HEMETOLOGY METHOD 06/24/2025 2:58 AM [facility] Platelets 277 130 - 400 K/mcL LAB HEMETOLOGY METHOD 06/24/2025 2:58 AM [facility] MPV 9.4 7.0 - 11.0 FL LAB HEMETOLOGY METHOD 06/24/2025 2:58 AM [facility] NRBC 0.0 <1.0 % LAB HEMETOLOGY METHOD 06/24/2025 2:58 AM [facility] NRBC Absolute 0.00 <0.10 K/mcL LAB HEMETOLOGY METHOD 06/24/2025 2:58 AM [facility] Neutrophils Relative 58.5 % LAB HEMETOLOGY METHOD 06/24/2025 2:58 AM [facility] Lymphocytes Relative 24.7 % LAB HEMETOLOGY METHOD 06/24/2025 2:58 AM [facility] Monocytes Relative 9.8 % LAB HEMETOLOGY METHOD 06/24/2025 2:58 AM EDT [facility] Eosinophils Relative 5.3 % LAB HEMETOLOGY METHOD 06/24/2025 2:58 AM EDT [facility] Basophils Relative 0.6 % LAB HEMETOLOGY METHOD 06/24/2025 2:58 AM EDT [facility] Immature Granulocytes Relative 1.1 % LAB HEMETOLOGY METHOD 06/24/2025 2:58 AM EDT [facility] Neutrophils Absolute 4.64 1.50 - 7.00 K/mcL LAB HEMETOLOGY METHOD 06/24/2025 2:58 AM EDT [facility] Lymphocytes Absolute 1.96 1.00 - 5.00 K/mcL LAB HEMETOLOGY METHOD 06/24/2025 2:58 AM EDT [facility] Monocytes Absolute 0.78 0.20 - 1.00 K/mcL LAB HEMETOLOGY METHOD 06/24/2025 2:58 AM EDT [facility] Eosinophils Absolute 0.42 0.00 - 0.50 K/mcL LAB HEMETOLOGY METHOD 06/24/2025 2:58 AM EDT [facility] Basophils Absolute 0.05 0.00 - 0.20 K/mcL LAB HEMETOLOGY METHOD 06/24/2025 2:58 AM EDT [facility] Immature Granulocytes Absolute 0.09(H) 0.00 - 0.03 K/mcL LAB HEMETOLOGY METHOD 06/24/2025 2:58 AM EDT [facility] Blood Venous blood specimen / Unknown Venipuncture / Unknown 06/24/2025 2:23 AM EDT 06/24/2025 2:51 AM EDT us Julian Clarke MD LAB BLOOD ORDERABLES Final R esult [facility] [address] [place] [address], [place] [phone] * (ABNORMAL) Magnesium (06/24/2025 2:23 AM EDT) Magnesium 1.6(L) 1.9 - 2.6 mg/dL LAB CHEMISTRY METHOD 06/24/2025 3:22 AM EDT [facility] Blood Venous blood specimen / Unknown Venipuncture / Unknown 06/24/2025 2:23 AM EDT 06/24/2025 2:52 AM EDT us Julian Clarke MD LAB BLOOD ORDERABLES Final R esult Performing Organization Address City/[facility]/ZIP Co de Phone Number [facility] [address] [place] [address], [place] [phone] * Ethanol (06/24/2025 2:23 AM EDT) Only the most recent of6 resultswithin the time period is included. Ethanol Level <3 0 - 10 mg/dL LAB CHEMISTRY METHOD 06/24/2025 3:22 AM EDT [facility] Blood Venous blood specimen / Unknown Venipuncture / Unknown 06/24/2025 2:23 AM EDT 06/24/2025 2:52 AM EDT us Julian Clarke MD LAB BLOOD ORDERABLES Final R esult [facility] [address] [place] [address], [place] [phone] * (ABNORMAL) Acetaminophen level (06/24/2025 2:23 AM EDT) Only the most recent of6 resultswithin the time period is included. Acetaminophen Level <2.0(L) 10.0 - 30.0 mcg/mL LAB CHEMISTRY METHOD 06/24/2025 3:26 AM EDT [facility] Blood Venous blood specimen / Unknown Venipuncture / Unknown 06/24/2025 2:23 AM EDT 06/24/2025 2:52 AM EDT Julian Clarke MD LAB BLOOD ORDERABLES Final R esult Performing Organization Address City/[facility]/ZIP Co de Phone Number [facility] [address] [place] [address], [place] [phone] * Salicylate Level (06/24/2025 2:23 AM EDT) Only the most recent of6 resultswithin the time period is included. Salicylate Level 2.4 2.0 - 29.0 mg/dL LAB CHEMISTRY METHOD 06/24/2025 3:26 AM EDT [facility] Blood Venous blood specimen / Unknown Venipuncture / Unknown 06/24/2025 2:23 AM EDT 06/24/2025 2:52 AM EDT Julian Clarke MD LAB BLOOD ORDERABLES Final R esult Performing Organization Address [facility]/ZIP Co de Phone Number [facility] [address] [place] [address], [place] [phone] * Buprenorphine screen, urine (06/17/2025 3:20 AM EDT) Only the most recent of5 resultswithin the time period is included. Buprenorphine Screen Urine Negative Negative LAB CHEMISTRY METHOD 06/17/2025 4:04 AM EDT [facility] Urine Urine specimen obtained by clean catch procedure / Unknown Non-blood Collection / Unknown 06/17/2025 3:20 AM EDT 06/17/2025 3:25 AM EDT Narrative [facility] - 06/17/2025 4:04 AM EDT Assay cutoff 5 ng/mL Semi-quantitative assay for screening purposes only. Unconfirmed screening result should not be used for non-medical purposes. *ALTERNATE METHOD CONFIRMATION DONE UPON REQUEST ONLY* Cara Ozuna [place] LAB URINE ORDERABLES Fin al Result Performing Organization Address [facility] de Phone Number [facility] [address] [place] [address], [place] [phone] * Methadone, urine (06/17/2025 3:20 AM EDT) Only the most recent of5 resultswithin the time period is included. Methadone Screen, Urine Negative Negative LAB CHEMISTRY METHOD 06/17/2025 4:01 AM EDT [facility] Comment: Assay cutoff 300 ng/mL Semi-quantitative assay for screening purposes only. Unconfirmed screening result should not be used for non-medical purposes. *ALTERNATE METHOD CONFIRMATION DONE UPON REQUEST ONLY* Urine Urine specimen obtained by clean catch procedure / Unknown Non-blood Collection / Unknown 06/17/2025 3:20 AM EDT 06/17/2025 3:25 AM EDT Cara Ozuna [place] LAB URINE ORDERABLES Fin al Result Performing Organization Address [facility] de Phone Number [facility] [address] [place] [address], [place] [phone] * Phencyclidine, urine (06/17/2025 3:20 AM EDT) Only the most recent of5 resultswithin the time period is included. PCP Scrn, Ur Negative Negative LAB CHEMISTRY METHOD 06/17/2025 4:01 AM EDT [facility] Comment: Assay cutoff 25 ng/mL Semi-quantitative assay for screening purposes only. Unconfirmed screening result should not be used for non-medical purposes. *ALTERNATE METHOD CONFIRMATION DONE UPON REQUEST ONLY* Urine Urine specimen obtained by clean catch procedure / Unknown Non-blood Collection / Unknown 06/17/2025 3:20 AM EDT 06/17/2025 3:25 AM EDT Cara CAPELLAN LAB URINE ORDERABLES Fin al Result [facility] [address] [place] [address], * CT Abdomen Pelvis w Contrast (06/03/2025 [...] by: Zachary Guevara DO on 06/03/2025 05:06:31 us Rudi Hilliard MD IMG CT PROCEDURES Final Result * [place] urine culture tube (06/03/2025 2:49 AM EDT) Pathologist [facility] Extra Tube Hold for add-ons. 06/03/2025 5:01 AM EDT [facility] Comment:Auto resulted. Urine Urine specimen obtained by clean catch procedure / Unknown Non-blood Collection / Unknown 06/03/2025 2:49 AM EDT 06/03/2025 3:04 AM EDT us Rudi Hilliard MD LAB URINE ORDERABLES Final Resul t [facility] [address] [place] [address], [place] [phone] * Beta hydroxybutyrate (06/03/2025 2:49 AM EDT) Beta-Hydroxybu tyrate 1.1 0.2 - 2.8 mg/dL LAB CHEMISTRY METHOD 06/03/2025 3:45 AM EDT [facility] Blood Venous blood specimen / Unknown Venipuncture / Unknown 06/03/2025 2:49 AM EDT 06/03/2025 3:05 AM EDT us Rudi Hilliard MD LAB BLOOD ORDERABLES Final Resul t Performing Organization Address [facility] Co de Phone Number [facility] [address] [place] [address], [place] [phone] * hCG Quantitative (06/03/2025 2:49 AM EDT) hCG Quant <1 mIU/mL LAB CHEMISTRY METHOD 06/03/2025 3:45 AM EDT [facility] Blood Venous blood specimen / Unknown Venipuncture / Unknown 06/03/2025 2:49 AM EDT 06/03/2025 3:05 AM EDT Narrative [facility] - 06/03/2025 3:45 AM EDT Quantitative HCG Reference Ranges Time after Conception MIU/ML 0.2-1 Week 5-50 1-2 Weeks 50-500 2-3 Weeks 100-5,000 3-4 Weeks 500-10,000 4-5 Weeks 1,000-50,000 5-6 Weeks 10,000-100,000 6-8 Weeks 15,000-200,000 2-3 Months 10,000-100,000 2nd Trimester 1,000-94,000 3rd Trimester 2,500-90,000 Non- Females 1-3 us Rudi Hilliard MD LAB BLOOD ORDERABLES Final Resul t Performing Organization Address [facility]/ZIP Co de Phone Number [facility] [address] [place] [address], [place] [phone] * (ABNORMAL) Lactate (06/03/2025 2:49 AM EDT) Lactate 2.8(H) 0.4 - 2.0 mmol/L LAB CHEMISTRY METHOD 06/03/2025 3:31 AM EDT [facility] Blood Venous blood specimen / Unknown Venipuncture / Unknown 06/03/2025 2:49 AM EDT 06/03/2025 3:04 AM EDT Rudi Hilliard MD LAB BLOOD ORDERABLES Final Resul t [facility] [address] [place] [address], [place] [phone] * , Urine (05/18/2025 7:00 PM EDT) Preg Test, Ur Negative Negative 05/18/2025 7:43 PM EDT [facility] Urine Urine specimen obtained by clean catch procedure / Unknown Non-blood Collection / Unknown 05/18/2025 7:00 PM EDT 05/18/2025 7:13 PM EDT Janine Stewart DO LAB URINE ORDERABLES Final Re sult [facility] [address] [place] [address], [place] [phone] * Pap smear (04/22/2024) 04/22/2024 Narrative HISTORICAL TESTING LAB RESULTING AGENCY - 04/28/2024 11:46 AM EDT [id number] THINPREP PAP, IMAGED: NEGATIVE FOR SQUAMOUS INTRAEPITHELIAL LESION AND MALIGNANCY GREG LANZA(ASCP) (CASE ELECTRONICALLY SIGNED 04 28 2024) RESULT OF APTIMA HIGH RISK HPV ASSAY: HIGH RISK HPV: NEGATIVE (SEROTYPES 16,18,31,33,35,39,45,51,52,56,58,59,66,68) COMPLETED ON 2024-04-24 ADEQUACY: SATISFACTORY ENDOCERVICAL/TRANSFORMATION ZONE COMPONENT PRESENT. SOURCE: THINPREP PAP HPV ANY DX: REFLEX 16 AND 18, CERVICAL, IMAGED CLINICAL INFORMATION: HPV ANY DIAGNOSIS. 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
--- OUTSIDE RECORDS SUMMARY | 2025-06-27 22:56 | XMS_ITS | Encounter Summary ---
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
[2025-06-27 22:57] LABS: Hematocrit 34.8 % (37.0-47.0); Hemoglobin 11.9 g/dl (12.0-16.0); Imm Gran Abs Auto 0.08 X10*3/uL (0.00-0.03); Imm Gran Pct Auto 0.9 % (0.0-0.4); Lymphocytes Absolute Auto 1.6 X10*3/uL (1.2-4.9); Mean Corpuscular HGB Conc 34.2 g/dl (31.0-35.0); Mean Corpuscular Hemoglobin 31.5 pg (27.0-33.0); Mean Corpuscular Volume 92.1 fL (80.0-98.0); NRBC Abs Auto 0.000 X10*3/uL (0.0-0.012); NRBC Pct Auto 0.0 /100WBC (0.0-0.2); Platelet Count 267 X10*3/uL (160-400); Red Blood Count 3.78 X10*6/uL (4.20-5.50); White Blood Count 9.2 X10*3/uL (4.8-10.8)
--- NOTE | 2025-06-27 23:00 | PC.NURSE ---
Assumed care of patient at 2245, patient calm and cooperative, offering no complaints to this RN, respirations even and unlabored, continue plan of care for CARE team eval
[2025-06-27 23:10] LABS: Alanine Aminotransferase 34 U/L (0-31); Albumin Level 4.3 g/dL (3.5-5.0); Alkaline Phosphatase 141 U/L (39-117); Anion Gap 17 (12-20); Aspartate Amino Transferase 34 U/L (5-31); Blood Urea Nitrogen 8 mg/dL (9-16); Calcium 8.7 mg/dL (8.4-10.2); Carbon Dioxide 24 mmol/L (22-29); Chloride 104 mmol/L (96-108); Creatinine Clr Calc Pharmacy 135.4; Estimated Glomerular Filt Rate > 60; Potassium 3.7 mmol/L (3.3-5.1); Sodium 141 mmol/L (135-145); Total Protein 6.6 g/dL (6.5-8.0)
[2025-06-27 23:16] LABS: Salicylate < 5.0 mg/dL (15-30)
--- NOTE | 2025-06-28 08:02 | PC.NURSE ---
Assumed care, report received. Pt is currently sleeping. safety maintained.
[2025-06-28] MEDS: Ferrous Sulfate 324 MG TABLET.DR PO (08:57)
--- NOTE | 2025-06-28 14:09 | MHC.CARE ---
Referral for a 3 day follow up and 7 day alert sent to [facility]
[2025-06-28 14:49] VITALS: TEMP 36.6
[2025-06-28 17:15] VITALS: BP 158/90; PULSE 90; RESP 22; TEMP 36.6
== END 2025-06-28 17:22 | disposition home or self-care (01) ==
PROVIDERS: Emergency Provider Emergency Medicine
DX: R44.0 Auditory hallucinations (principal); K59.00 Constipation, unspecified; R45.851 Suicidal ideations; S50.912A Unspecified superficial injury of left forearm, initial encounter; X78.9XXA Intentional self-harm by unspecified sharp object, initial encounter; Y93.9 Activity, unspecified; Y92.9 Unspecified place or not applicable; Y99.9 Unspecified external cause status; Z79.899 Other long term (current) drug therapy
CPT/HCPCS: 36415; 80053; 80179; 80307; 81003; 84702; 85025; 99285; S9485

== ENCOUNTER 2025-06-29 01:26 | Emergency (ER) | payer MEDICARE, MEDICAID, SELFPAY ==
--- OUTSIDE RECORDS SUMMARY | 2025-06-24 01:59 | XMS_ITS | Encounter Summary ---
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 Number [facility] [address] [place] [address], [place] [phone] * (ABNORMAL) Comprehensive Metabolic Panel (CMP) (06/24/2025 2:23 AM EDT) [facility] Signature Sodium 137 133 - 145 mmol/L LAB CHEMISTRY METHOD 06/24/2025 3:37 AM [facility] Potassium 3.3(L) 3.5 - 5.5 mmol/L LAB CHEMISTRY METHOD 06/24/2025 3:37 AM [facility] Chloride 101 96 - 110 mmol/L LAB CHEMISTRY METHOD 06/24/2025 3:37 AM [facility] CO2 30 21 - 32 mmol/L LAB CHEMISTRY METHOD 06/24/2025 3:37 AM [facility] Anion Gap 6 3 - 11 LAB CHEMISTRY METHOD 06/24/2025 3:37 AM [facility] Glucose 227(H) 70 - 100 mg/dL LAB CHEMISTRY METHOD 06/24/2025 3:37 AM [facility] BUN 11 5 - 25 mg/dL LAB CHEMISTRY METHOD 06/24/2025 3:37 AM [facility] Creatinine 0.76 0.50 - 1.10 mg/dL LAB CHEMISTRY METHOD 06/24/2025 3:37 AM [facility] eGFR 97 >=60 mL/min/1. 73m2 LAB CHEMISTRY METHOD 06/24/2025 3:37 AM [facility] Comment:Calculation based on the Chronic Kidney Disease Epidemiology Collaboration (CKD-EPI) equation refit without adjustment for race. BUN/Creatinine Ratio 14.5 LAB CHEMISTRY METHOD 06/24/2025 3:37 AM [facility] Calcium 9.0 8.5 - 10.5 mg/dL LAB CHEMISTRY METHOD 06/24/2025 3:37 AM [facility] AST (SGOT) 21 10 - 42 unit/L LAB CHEMISTRY METHOD 06/24/2025 3:37 AM EDT [facility] ALT (SGPT) 27 10 - 60 unit/L LAB CHEMISTRY METHOD 06/24/2025 3:37 AM EDT [facility] Alkaline Phosphatase 217(H) 42 - 121 unit/L LAB CHEMISTRY METHOD 06/24/2025 3:37 AM EDT [facility] Total Protein 6.6 6.0 - 8.0 g/dL LAB CHEMISTRY METHOD 06/24/2025 3:37 AM EDT [facility] Albumin 3.7 3.2 - 5.0 g/dL LAB CHEMISTRY METHOD 06/24/2025 3:37 AM EDT [facility] Total Bilirubin 0.1 0.0 - 1.4 mg/dL LAB CHEMISTRY METHOD 06/24/2025 3:37 AM EDT [facility] Blood Venous blood specimen / Unknown Venipuncture / Unknown 06/24/2025 2:23 AM EDT 06/24/2025 2:52 AM EDT us Julian Clarke MD LAB BLOOD ORDERABLES Final R esult [facility] [address] [place] [address], documented in this encounter Visit Diagnoses Diagnosis Suicidal ideation- Primary Hallucinations Epigastric abdominal pain Abdominal pain, epigastric documented in this encounter Administered Medications Inactive Administered Medications - up to 3 most recent administrations Medication Order MAR Action Action Date Dose Rate Site aluminum-magnesium hydroxide-simethicone (MAALOX) 200-200-20 mg/5 mL suspension 30 mL 30 mL, oral, Once, On Sun06/24/25 at 0352, For 1 dose Given 06/24/2025 4:46 AM EDT 30 mL ketorolac (TORADOL) injection 15 mg 15 mg, intravenous, Once, On Sun06/24/25 at 0211, For 1 dose Given 06/24/2025 3:13 AM EDT 15 mg magnesium oxide (MAG-OX) tablet 400 mg 400 mg, oral, Once, On Sun06/24/25 at 0720, For 1 dose Given 06/24/2025 8:06 AM EDT 400 mg ondansetron (PF) (ZOFRAN) injection 4 mg 4 mg, intravenous, Once, On Sun06/24/25 at 0211, For 1 dose Given 06/24/2025 3:13 AM EDT 4 mg sodium chloride 0.9 % bolus 1,000 mL 1,000 mL, intravenous, at 1,000 mL/hr, Administer over 1 Hours, Once, On Sun06/24/25 at 0211, For 1 dose New Bag 06/24/2025 3:13 AM EDT 1,000 mL 100 0 mL/hr documented in this encounter Active and Recently Administered Medications Times are shown in EDT. Scheduled Medication Order 06/22/2025 06/23/2025 06/24/2025 aluminum-magnesium hydroxide-simethicone (MAALOX) 200-200-20 mg/5 mL suspension 30 mL (COMPLETED) 30 mL, oral, Once, On Sun06/24/25 at 0352, For 1 dose 0446 (Given - Provid er: Deepak Tate RN) ketorolac (TORADOL) injection 15 mg (COMPLETED) 15 mg, intravenous, Once, On Sun06/24/25 at 0211, For 1 dose 0313 (Given - Provid er: Deepak Tate RN) magnesium oxide (MAG-OX) tablet 400 mg (COMPLETED) 400 mg, oral, Once, On Sun06/24/25 at 0720, For 1 dose 0806 (Given - Provid er: Cara Sun RN) ondansetron (PF) (ZOFRAN) injection 4 mg (COMPLETED) 4 mg, intravenous, Once, On Sun06/24/25 at 0211, For 1 dose 0313 (Given - Provid er: Deepak Tate RN) sodium chloride 0.9 % bolus 1,000 mL (COMPLETED) 1,000 mL, intravenous, at 1,000 mL/hr, Administer over 1 Hours, Once, On Sun06/24/25 at 0211, For 1 dose 0313 (New Bag - Prov ider: Deepak Tate RN)0806 (Stopped - Provider: Cara Sun RN) documented in this encounter Orders Consult Count Last Ordered Date First Orde red Date IP CONSULT TO DOCTOR OF NAPRAPATHY 1 06/24/2025 IV Count Last Ordered Date First Orde red Date INSERT PERIPHERAL IV 1 06/24/2025 documented in this encounter Care Teams Candy Polisher Relationship Specialty Start Date End Date Maribel Marquez [address] [place] [id number] PCP - General 09/08/24 documented as of this encounter
--- OUTSIDE RECORDS SUMMARY | 2025-06-26 21:39 | XMS_ITS | Encounter Summary ---
Author Organization [facility] Address [address] [place] [address] Care Team Providers Care Boxing Instructor Name Role Phone Maribel Marquez Primary Care Provider [phone] Reason for Visit * Reason Comments Constipation No BM for 4 days wit h mid abdominal pain Encounter Details Date Type Department Care Team (Late st Contact Info) Description 06/26/2025 9:39 PM EDT - 06/27/2025 1:34 AM EDT Emergency [facility] Emergency [address] [place] [address] Constipation, unspecified constipation type (Primary Dx) Discharge Disposition: Home or Self Care Social History Tobacco Use Types Packs/Day Years Used Date Smoking Tobacco: Every Day Cigarettes Smokeless Tobacco: Never Alcohol Use Standard Drinks/Week Comments No 0 (1 standard drink = 0.6 oz pur e alcohol) Comments No Sex and Gender Information Value Date Recorded Sex Assigned at Female 10/18/2024 9:16 PM EST Legal Sex Female 5:27 PM EST Gender Identity Female 10/18/2024 9:16 PM EST Sexual Orientation Straight 10/18/2024 9: 16 PM EST documented as of this encounter Last Filed Vital Signs Vital Sign Reading Time Taken Comments Blood Pressure 151/86 06/26/2025 11:29 PM EDT Pulse 109 06/26/2025 11:29 PM EDT Temperature 37.1 C (98.8 F) 06/26/2025 11:29 PM EDT Respiratory Rate 18 06/26/2025 11:29 PM EDT Oxygen Saturation 96% 06/26/2025 11:29 PM EDT Inhaled Oxygen Concentration - - Weight 103 kg (227 lb) 06/26/2025 9:28 PM EDT Height 162.6 cm (5' 4 ) 06/26/2025 9:28 PM EDT Body Mass Index 38.96 06/26/2025 9:28 PM EDT documented in this encounter Functional Status * Are you deaf or do you have serious difficulty hearing? Answer Date of Assessment Author No 06/24/2025 8:07 AM EDT [place], As rupesh Jalloh RN * Are you [...] Assessment Author No 06/24/2025 8:07 AM EDT [place], As rupesh Jalloh RN * Because of a physical, mental, or emotional condition, do you have serious difficulty doing errandsalone such as visiting the doctor? Answer Date of Assessment Author No 06/24/2025 8:07 AM EDT [place], As rupesh Jalloh RN documented as of this encounter Mental Status * Because of a physical, mental, or emotional condition, do you have serious difficulty concentrating, remembering, or making decisions? (5 years old or older) Answer Entry Date Author Yes 06/24/2025 8:07 AM EDT [place], As rupesh Jalloh RN documented in this encounter Discharge Instructions * Attachments The following attachments cannot be sent through Care Everywhere. * Constipation (Portuguese) documented in this encounter Medications at Time [...] mouth 1 (one) time each day. 05/18/2025 docusate sodium (COLACE) 100 mg capsule Take 1 capsule (100 mg total) by mouth every 12 (twelve) hours. 60 capsule 06/27/2025 ferrous sulfate 325 mg (65 mg iron) [...] mg total) by mouth at bedtime. 05/03/2023 psyllium (METAMUCIL) 3.4 gram packet Take 1 packet by mouth 1 (one) time each day. 30 packet 06/27/2025 6 temazepam (RESTORIL) 15 mg capsule Take 1 capsule (15 mg total) by mouth at bedtime as needed for sleep (if awake at 2am.). 10/06/2024 Vitamin C 500 mg tablet Take 1 tablet (500 mg total) by mouth 2 (two) times a day. 03/04/2024 documented as of this encounter Ordered Prescriptions Prescription Sig Dispense Quantity Refills Last Filled Start Date End Date psyllium (METAMUCIL) 3.4 gram packet Take 1 packet by mouth 1 (one) time each day. 30 packet 06/27/2025 6 docusate sodium (COLACE) 100 mg capsule Take 1 capsule (100 mg total) by mouth every 12 (twelve) hours. 60 capsule 06/27/2025 5 documented in this encounter Discharge Disposition Disposition Code Departure Means Destination Comment s Home or Self Care Reviewed discharge instructions, self ambulated to exit with lyft provided documented in this encounter Progress Notes * Nyla Conklin RN - 06/26/2025 9:31 PM EDT Pt c/o mid abdominal pain and constipation x 4 days. Pt denies nausea, vomiting and diarrhea. * TIMI Maria - 06/26/2025 9:19 PM EDT HPI Chief Complaint Patient presents with Constipation No BM for 4 days with mid abdominal pain HPI Presenting to ED with concerns for no bowel movement for the past 4 days and generalized abdominal pain. Denying nausea vomiting fever chills chest pain palpitations or blood in stool when havingbowel movement. Does report some new medicines with constipation as a side effect. Denies any previous abdominal surgeries. Benson Coma Scale Score: 15 Patient History Past Medical History: Diagnosis Date Asthma 07/13/1999 DX:Asthma Bipolar disorder ([facility] V24, [facility] V28) 12/12/2005 DX:Bipolar disorder (HCC) Borderline personality disorder ([facility] V24, [facility] V28) 06/26/2017 DX:Borderline personality disorder (HCC) Constipation 10/18/2012 DX:Constipation Depression 09/02/2002 DX:Depression; COMMENT: S/p multiple psych admissions for suicide attempts and self harm. Overdosing on aspirin, tylenol, ibuprofen First degree AV block 10/09/2017 DX:First degree AV block; COMMENT: Follows with [place] cardiology 09/2017. Holter pending GERD (gastroesophageal reflux [...] stress disorder) Suicide attempt by acetaminophen overdose ([facility] V24, [facility] V28) 10/26/2020 DX:Suicide attempt by acetaminophen overdose ([facility] [...] No Review of Systems Review of Systems Physical Exam ED Triage Vitals [06/26/252128] Temp Heart Rate Resp BP 37 ??C (98.6 ??F) (!) 123 18 (!) 130/117 SpO2 Temp Source Heart Rate Source Patient Position 97 % Oral Monitor Sitting BP Location FiO2 (%) Right arm -- Physical Exam GENERAL: No acute distress HEENT: Normocephalic and atraumatic, EOMI NECK: Supple, trachea is midline RESP: No respiratory distress, lung sounds clear and equal bilaterally, speaking complete sentences CARDIOVASCULAR: Heart sounds crisp without murmur, tachycardia GASTROINTESTINAL: Abdomen is soft, non distended, no abdominal tenderness MUSCULOSKELETAL: No obvious acute deformities, ROM intact SKIN: Warm and dry NEUROLOGIC: At baseline, no acute focal deficits PSYCHIATRIC: Calm and cooperative ED Course & MDM Clinical Impressions as of 06/27/25 0350 Constipation, unspecified constipation type Medical Decision Making Parental diagnosis constipation from medicine versus other motility source suspicion obstruction given no previous surgeries no distention no nausea vomiting Vital signs reviewed tachycardia noted likely due to pain Pulse oximetry reviewed and found to be > 94% on room air Nursing notes reviewed CBC negative for significant leukocytosis or anemia requiring blood transfusion Metabolic panel negative for significant electrolyte abnormality with no signs of acute organ dysfunction Heart rate improved after IV fluids and pain medicine, low suspicion for infectious or cardiopulmonary source of tachycardia based on history and exam On reevaluation patient reportedly feeling better Social determinants of health considered including housing follow-up social and financial support Patient deemed appropriate for discharge with symptomatic treatment, recommendations to follow-up with primary care doctor / specialist with return precautions provided Procedures TIMI Maria 06/27/25 0406 Cosigned by Rudi Hilliard MD at 06/27/2025 4:16 AM EDT documented in this encounter Plan of Treatment Not on file documented as of this encounter Procedures Procedure Name Priority Date/Time Associated Diagnosis Comments LIPASE STAT 06/26/2025 11:25 PM EDT COMPREHENSIVE METABOLIC PANEL STAT 06/26/2025 11:25 PM EDT COMPLETE BLOOD COUNT STAT 06/26/2025 10:07 PM EDT HCG, SERUM, QUALITATIVE STAT 06/26/2025 10:07 PM EDT documented in this encounter Results * Lipase (06/26/2025 11:25 PM EDT) Pathologist [facility] Lipase 23 13 - 75 unit/L LAB CHEMISTRY METHOD 06/27/2025 12:29 AM EDT [facility] Blood Venous blood specimen / Unknown Venipuncture / Unknown 06/26/2025 11:25 PM EDT 06/26/2025 11:49 PM EDT us Julio CAPELLAN LAB BLOOD ORDERABLES Final Result [facility] [address] [place] [address], [place] [phone] * (ABNORMAL) Comprehensive Metabolic Panel (CMP) (06/26/2025 11:25 PM EDT) Pathologist [facility] Department Sodium 137 133 - 145 mmol/L LAB CHEMISTRY METHOD 06/27/2025 12:32 AM [facility] Potassium 3.3(L) 3.5 - 5.5 mmol/L LAB CHEMISTRY METHOD 06/27/2025 12:32 AM [facility] Chloride 103 96 - 110 mmol/L LAB CHEMISTRY METHOD 06/27/2025 12:32 AM [facility] CO2 26 21 - 32 mmol/L LAB CHEMISTRY METHOD 06/27/2025 12:32 AM [facility] Anion Gap 8 3 - 11 LAB CHEMISTRY METHOD 06/27/2025 12:32 AM [facility] Glucose 114(H) 70 - 100 mg/dL LAB CHEMISTRY METHOD 06/27/2025 12:32 AM [facility] BUN 9 5 - 25 mg/dL LAB CHEMISTRY METHOD 06/27/2025 12:32 AM [facility] Creatinine 0.66 0.50 - 1.10 mg/dL LAB CHEMISTRY METHOD 06/27/2025 12:32 AM [facility] eGFR 109 >=60 mL/min/1. 73m2 LAB CHEMISTRY METHOD 06/27/2025 12:32 AM [facility] Comment:Calculation based on the Chronic Kidney Disease Epidemiology Collaboration (CKD-EPI) equation refit without adjustment for race. BUN/Creatinine Ratio 13.6 LAB CHEMISTRY METHOD 06/27/2025 12:32 AM [facility] Calcium 8.1(L) 8.5 - 10.5 mg/dL LAB CHEMISTRY METHOD 06/27/2025 12:32 AM [facility] AST (SGOT) 28 10 - 42 unit/L LAB CHEMISTRY METHOD 06/27/2025 12:32 AM [facility] ALT (SGPT) 30 10 - 60 unit/L LAB CHEMISTRY METHOD 06/27/2025 12:32 AM [facility] Alkaline Phosphatase 155(H) 42 - 121 unit/L LAB CHEMISTRY METHOD 06/27/2025 12:32 AM EDT [facility] Total Protein 5.9(L) 6.0 - 8.0 g/dL LAB CHEMISTRY METHOD 06/27/2025 12:32 AM EDT [facility] Albumin 3.2 3.2 - 5.0 g/dL LAB CHEMISTRY METHOD 06/27/2025 12:32 AM EDT [facility] Total Bilirubin 0.2 0.0 - 1.4 mg/dL LAB CHEMISTRY METHOD 06/27/2025 12:32 AM EDT [facility] Blood Venous blood specimen / Unknown Venipuncture / Unknown 06/26/2025 11:25 PM EDT 06/26/2025 11:49 PM EDT Julio CAPELLAN LAB BLOOD ORDERABLES Final Result [facility] [address] [place] [address], * CBC (06/26/2025 10:07 PM EDT) WBC 10.0 4.8 - 10.8 K/mcL LAB HEMETOLOGY METHOD 06/26/2025 10:52 PM EDT [facility] RBC 3.90 3.80 - 4.80 M/[facility] LAB HEMETOLOGY METHOD 06/26/2025 10:52 PM EDT [facility] Hemoglobin 12.1 11.5 - 16.0 g/dL LAB HEMETOLOGY METHOD 06/26/2025 10:52 PM EDT [facility] Hematocrit 35.8 35.0 - 47.0 % LAB HEMETOLOGY METHOD 06/26/2025 10:52 PM EDT [facility] MCV 92.0 79.0 - 98.0 FL LAB HEMETOLOGY METHOD 06/26/2025 10:52 PM EDT [facility] MCH 31.1 27.0 - 32.0 pcg LAB HEMETOLOGY METHOD 06/26/2025 10:52 PM EDT [facility] MCHC 33.8 32.0 - 37.0 g/dL LAB HEMETOLOGY METHOD 06/26/2025 10:52 PM EDT [facility] RDW 12.7 11.0 - 15.0 % LAB HEMETOLOGY METHOD 06/26/2025 10:52 PM EDT [facility] Platelets 287 130 - 400 K/mcL LAB HEMETOLOGY METHOD 06/26/2025 10:52 PM EDT [facility] MPV 9.6 7.0 - 11.0 FL LAB HEMETOLOGY METHOD 06/26/2025 10:52 PM EDT [facility] NRBC 0.0 <1.0 % LAB HEMETOLOGY METHOD 06/26/2025 10:52 PM EDT [facility] NRBC Absolute 0.00 <0.10 K/mcL LAB HEMETOLOGY METHOD 06/26/2025 10:52 PM EDT [facility] Blood Venous blood specimen / Unknown Venipuncture / Unknown 06/26/2025 10:07 PM EDT 06/26/2025 10:43 PM EDT us Julio CAPELLAN LAB BLOOD ORDERABLES Final Result [facility] [address] [place] [address], * hCG Qualitative (06/26/2025 10:07 PM EDT) hCG Qual Negative Negative 06/26/2025 11:17 PM EDT [facility] Blood Venous blood specimen / Unknown Venipuncture / Unknown 06/26/2025 10:07 PM EDT 06/26/2025 10:43 PM EDT us Julio CAPELLAN LAB BLOOD ORDERABLES Final Result [facility] [address] [place] [address], documented in this encounter Visit Diagnoses Diagnosis Constipation, unspecified constipation type- Primary documented in this encounter Administered Medications Inactive Administered Medications - up to 3 most recent administrations Medication Order MAR Action Action Date Dose Rate Site aluminum-magnesium hydroxide-simethicone (MAALOX) 200-200-20 mg/5 mL suspension 30 mL 30 mL, oral, Once, On Sun06/26/25 at 2132, For 1 dose Given 06/26/2025 9:59 PM EDT 30 mL ketorolac (TORADOL) injection 15 mg 15 mg, intravenous, Once, On Sun06/26/25 at 2132, For 1 dose Given 06/26/2025 10:08 PM EDT 15 mg sodium chloride 0.9 % bolus 1,000 mL 1,000 mL, intravenous, at 2,000 mL/hr, Administer over 30 Minutes, Once, On Sun06/26/25 at 2132, For 1 dose New Bag 06/26/2025 10:07 PM EDT 1,000 mL 2000 mL/hr documented in this encounter Active and Recently Administered Medications Times are shown in EDT. Scheduled Medication Order 06/25/2025 06/26/2025 06/27/2025 aluminum-magnesium hydroxide-simethicone (MAALOX) 200-200-20 mg/5 mL suspension 30 mL (COMPLETED) 30 mL, oral, Once, On Sun06/26/25 at 2132, For 1 dose 2158 (Given - Provider: Osbaldo Rivera RN) ketorolac (TORADOL) injection 15 mg (COMPLETED) 15 mg, intravenous, Once, On Sun06/26/25 at 2132, For 1 dose 2207 (Given - Provider: Osbaldo Rivera RN) sodium chloride 0.9 % bolus 1,000 mL (COMPLETED) 1,000 mL, intravenous, at 2,000 mL/hr, Administer over 30 Minutes, Once, On Sun06/26/25 at 2132, For 1 dose 2207 (New Bag - Provider: Lisa Rivera, RN)2323 (Stopped - Provider: Lisa Rivera RN) documented in this encounter Care Teams Boxing Instructor Relationship Specialty Start Date End Date Maribel Marquez [address] [place] [id number] PCP - General 09/08/24 documented as of this encounter
[2025-06-29] VITALS (7 sets, daily range): BP systolic 100–142; BP diastolic 67–88; PULSE 90–110; RESP 18–21; TEMP -17.7–37; O2SAT 94–100; BMI 43.4
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
--- OUTSIDE RECORDS SUMMARY | 2025-06-29 01:43 | XMS_ITS | Clinical Summary ---
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 Name Role Phone Maribel Marquez NP Primary Care Provider + Allergies Active Allergy Reactions Criticality Noted Date Comments Azithromycin 05/18/2023 Codeine 04/21/[address] [place] Other (See Comments) 02/27/2013 pt reports 01/17/13 [...] EST) SODIUM 140 136 - 145 mmol/L [facility] POTASSIUM 3.7 3.4 - 5.1 mmol/L [facility] CHLORIDE 102 98 - 107 mmol/L [facility] CO2 23 22 - 31 mmol/L [facility] BUN 12 6 - 23 mg/dL [facility] CREATININE 0.63 0.50 - 1.20 mg/dL [facility] GLUCOSE 160(H) 70 - 100 mg/dL [facility] CALCIUM 9.2 8.8 - 10.7 mg/dL [facility] EGFR 111 >59 mL/min/1.7 3m2 [facility] Comment:Estimated glomerular filtration rate calculated using the CKD-EPI refit equation. ANION GAP 15 7 - 17 mmol/L [facility] Blood 08/24/2024 3:05 AM EST 08/24/2024 3:15 AM EST Parvez Duenas MD, MPH LAB BLOOD ORDERABLES F inal Result [facility] [address] [place] [address] from Last 3 Months or Most Recently Relevant to Health Maintenance Insurance [facility]IC[facility] PART A & B [facility] [place] [facility] & [place] B [facility] MEDICARE PART A & B Care Teams Hydroelectric Powerplant Supervisor Relationship Specialty Start Date End Date Maribel Marquez NP [address] [place] [address] PCP - General Nurse Practitioner 04/02/24 Additional Source Comments The information contained in this document represents components of the legal health record. It is not the complete legal health record.[facility]
--- OUTSIDE RECORDS SUMMARY | 2025-06-29 01:43 | XMS_ITS | Encounter Summary ---
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
[2025-06-29 02:26] LABS: MANUAL DIFF FLAG NO
[2025-06-29 02:27] LABS: Hematocrit 35.4 % (37.0-47.0); Hemoglobin 11.9 g/dl (12.0-16.0); Imm Gran Abs Auto 0.07 X10*3/uL (0.00-0.03); Imm Gran Pct Auto 0.7 % (0.0-0.4); Lymphocytes Absolute Auto 1.8 X10*3/uL (1.2-4.9); Mean Corpuscular HGB Conc 33.6 g/dl (31.0-35.0); Mean Corpuscular Hemoglobin 30.9 pg (27.0-33.0); Mean Corpuscular Volume 91.9 fL (80.0-98.0); NRBC Abs Auto 0.000 X10*3/uL (0.0-0.012); NRBC Pct Auto 0.0 /100WBC (0.0-0.2); Platelet Count 274 X10*3/uL (160-400); Red Blood Count 3.85 X10*6/uL (4.20-5.50); White Blood Count 10.8 X10*3/uL (4.8-10.8)
[2025-06-29 02:40] LABS: Alanine Aminotransferase 33 U/L (0-31); Albumin Level 4.1 g/dL (3.5-5.0); Alkaline Phosphatase 151 U/L (39-117); Anion Gap 17 (12-20); Aspartate Amino Transferase 27 U/L (5-31); Blood Urea Nitrogen 10 mg/dL (9-16); Calcium 8.8 mg/dL (8.4-10.2); Carbon Dioxide 21 mmol/L (22-29); Chloride 104 mmol/L (96-108); Creatinine Clr Calc Pharmacy 113.6; Estimated Glomerular Filt Rate > 60; Potassium 3.2 mmol/L (3.3-5.1); Sodium 139 mmol/L (135-145); Total Protein 6.6 g/dL (6.5-8.0)
--- NOTE | 2025-06-29 05:27 | ED.PSYCH ---
HPI - Psych General Chief Complaint: Psychiatric Symptoms Stated Complaint: Hearing voices Time Seen by Provider: 06/29/25 05:21 Source: patient, EMS and old records reviewed Mode of arrival: EMS Limitations: no limitations History of Present Illness ED Provider: Dr. Ary Genao HPI Narrative: 49-year-old female very well known to this emergency department with a history of PTSD, depression, borderline personality disorder chronic auditory and visual hallucinations, chronic suicidal ideations, type 2 diabetes presenting by EMS from the long term where she is a resident with reported auditory and visual hallucinations commanding her to harm herself. States that she ?sees her father holding a gun to her head telling her to shoot herself?. Has been cutting her arms superficially as well. Tells me ?I think I need to go inpatient?. Unable to elaborate on this further. States she feels that she is unable to use her coping mechanisms appropriately at home. Feels unsafe. Denies physical pain or other symptoms. No reported homicidal ideations. Related Data Home Medications ?Medication ?Instructions ?Recorded ?Confirmed albuterol sulfate 90 mcg/actuation 2 puff inhalation Q6H PRN Wheezing 06/24/24 06/29/25 aerosol inhaler clozapine 100 mg tablet 200 mg PO BEDTIME 06/24/24 06/29/25 prazosin 2 mg capsule 4 mg PO BEDTIME 06/24/24 06/29/25 metformin 500 mg tablet 500 mg PO BID 07/15/24 06/29/25 atorvastatin 10 mg tablet 10 mg PO DAILY 05/23/25 06/29/25 ferrous sulfate 325 mg (65 mg 325 mg PO BID 05/23/25 06/29/25 iron) tablet fluticasone fur. 200 mcg-umeclid 1 ea inhalation DAILY 05/23/25 06/29/25 62.5 mcg-vilant 25 mcg inhalat.powder (Trelegy Ellipta) glycopyrrolate 1 mg tablet 1 mg PO BID 05/23/25 06/29/25 ibuprofen 600 mg tablet 600 mg PO Q6H PRN Mild Pain (Scale 05/23/25 06/29/25 Score 1-4) lorazepam 0.5 mg tablet 0.5 mg PO BID PRN Anxiety 05/23/25 06/29/25 mirtazapine 15 mg tablet 15 mg PO BEDTIME 05/23/25 06/29/25 montelukast 10 mg tablet 10 mg PO DAILY 05/23/25 06/29/25 ascorbic acid (vitamin C) 500 mg 500 mg PO BID 06/18/25 06/29/25 tablet (Vitamin C) benztropine 1 mg tablet 1 mg PO BID 06/18/25 06/29/25 buspirone 10 mg tablet 10 mg PO BID 06/18/25 06/29/25 famotidine 20 mg tablet 20 mg PO TIDWM 06/18/25 06/29/25 fluoxetine 40 mg capsule 80 mg PO DAILY 06/18/25 06/29/25 naproxen 500 mg tablet 500 mg PO BID PRN Pain (Scale 06/18/25 06/29/25 Score 4-6) pantoprazole 40 mg tablet,delayed 40 mg PO BID 06/18/25 06/29/25 release temazepam 15 mg capsule 15 mg PO BEDTIME PRN Insomnia 06/18/25 06/29/25 Previous Rx's ?Medication ?Instructions ?Recorded amlodipine 2.5 mg tablet 7.5 mg PO DAILY 30 days #90 tabs 06/01/25 haloperidol 5 mg tablet 15 mg (3 x 5 mg) PO BEDTIME 30 06/01/25 days #90 tabs hydrochlorothiazide 12.5 mg tablet 12.5 mg PO DAILY 30 days #30 tabs 06/01/25 nystatin 100,000 unit/gram topical 1 appl topical BID 30 days #30 06/01/25 cream grams acetaminophen 325 mg tablet 650 mg (2 x 325 mg) PO Q6H PRN 06/23/25 Headache/Pain, Scale 1-10 #0 tabs haloperidol 5 mg tablet 5 mg PO BID@0900,1500 #60 tabs 06/23/25 nicotine 21 mg/24 hr daily 21 mg transdermal DAILY PRN 06/23/25 transdermal patch smoking cessation #30 ea trazodone 50 mg tablet 50 mg PO BEDTIME MRX1 PRN Insomnia 06/23/25 #60 tabs Allergies Allergy/AdvReac Type Severity Reaction Status Date / Time azithromycin (AZITHROMYCIN) Allergy Severe Rash Verified 06/29/25 01:37 Fish Containing Products Allergy Severe Anaphylaxis Verified 06/29/25 01:37 codeine (Codeine) Allergy Intermediate Rash Verified 06/29/25 01:37 Penicillins Allergy Intermediate Rash Verified 06/29/25 01:37 prednisone (Prednisone) Allergy Intermediate Rash Verified 06/29/25 01:37 Sulfa (Sulfonamide Allergy Intermediate Rash Verified 06/29/25 01:37 Antibiotics) (Sulfa (Sulfonamides)) ziprasidone (From Geodon) Allergy Intermediate dysuria, Verified 06/29/25 01:37 rash lithium Allergy Unknown Rash Verified 06/29/25 01:37 Review of Systems Review of Systems: as per HPI, full review of systems performed and negative but for the above mentioned pertinent positives and negatives. [facility] Past Medical History Medical History Suicidal ideation Asthma Suicidal ideation MDD (major depressive disorder), recurrent episode, severe Chest pain Acute anxiety COVID-19 Full body hives Major depression Dizziness Suicide attempt UTI (urinary tract infection) Acetaminophen overdose COVID History of attempted suicide History of non-suicidal self-harm Hypomagnesemia Suicide attempt Suicide attempt by acetaminophen overdose Acetaminophen overdose Depression Diabetes type 2, controlled Borderline personality disorder PTSD (post-traumatic stress disorder) Overdose GERD (gastroesophageal reflux disease) Mood disorder Hyperlipidemia Bronchitis Social History Social History Household Members: Other Household Members Other:: long term members Housing: Other Housing Other:: Group Do you presently have visiting nurse or other home services: Yes (long term staff manage meds) Unable to assess alcohol history related to: Unknown Alcohol intake: never Comment: sitter in room Patient Tobacco Use Status: Current everyday Tobacco user Tobacco use type: Cigarette Cigarette Packs Per Day: 1 Cigarettes Per Day: 20.0 Years Smoked: 23 Smoked in Last 30 Days: No e-Cigarette/Vaping Use: Never Used Second Hand Smoke Exposure: No Use of substances other than those prescribed or required for medical reasons: No Substance Use Type: Caffiene Advance Directives: No Advance Directives Information Provided: No Do you have a plan to hurt others: No Plan service: No Current occupational status: unemployed and disabled Sexual orientation: Unable to collect Physical Exam Exam: Exam: GENERAL: Unkempt, no acute distress. SKIN: Normal skin color for ethnicity, warm, dry, multiple superficial lacerations overlying the bilateral forearms, worse on the left, no active bleeding, various stages of healing, no cellulitic changes. HEENT:? Normocephalic, atraumatic, no stridor, posterior oropharynx nonerythematous, dentition intact, EOMI. NECK: Soft, supple, full ROM, midline structures nontender, no step-offs, no deformities, no lymphadenopathy. CHEST: Heart regular rate and rhythm, no murmurs, symmetric chest rise and fall. PULMONARY: Clear to auscultation bilaterally, no labored breathing, no wheezes/rhales/rhonchi. ABDOMINAL: Soft, nondistended, nontender, positive bowel sounds in all quadrants. : Deferred. MUSCULOSKELETAL: Normal tone, full range of motion, no deformities, no peripheral edema. NEURO: Alert and oriented x3, CN II through XII intact, equal strength and sensation bilateral upper and lower extremities, no focal neurologic deficits.? PSYCHIATRIC: Flat affect, poor eye contact, withdrawn Vital Signs: Vital Signs: Last Vital Signs Temp 98.6 F 06/29/25 10:00 Pulse 92 06/29/25 10:00 Resp 18 06/29/25 10:00 BP 118/75 06/29/25 10:00 Pulse Ox 100 06/29/25 10:00 O2 Del Method Room Air 06/29/25 10:00 BMI result Body Mass Index 43.4 Course Course Course Narrative: 5:30 AM 06/29/2025 (Dr. Ary Genao, D.O.) Time: 05:30 Date: 06/29/25 Provider: Ary Genao, DO Patient in physician observation for psychiatric evaluation.? No acute events reported overnight. No current complaints. VS stable.? Patient is pending CARE team evaluation. Will continue to monitor. Medications Administered Discontinued Medications Generic Name Dose Route Start Last Admin Trade Name Freq PRN Reason Stop Dose Admin Acetaminophen 975 mg 06/29/25 06:04 06/29/25 06:46 Acetaminophen 325 Mg Tablet PO 06/29/25 06:05 975 mg ONCE ONE Administration Medical Decision Making Medical Decision Making MDM Narrative: Patient presents with psychologic complaints. Differential diagnosis includes suicidal ideations, homicidal ideations, depression, anxiety, mood disorder, decompensated mental illnesses such as schizophrenia or bipolar disorder, medication noncompliance, among many others. Medical clearance protocol was initiated. Lab Data 06/29/25 02:21 06/29/25 02:21 Labs: Lab Results 06/29/25 06/29/25 Range/Units 02:21 06:18 WBC 10.8 (4.8-10.8) X10*3/uL RBC 3.85 L (4.20-5.50) X10*6/uL Hgb 11.9 L (12.0-16.0) g/dl Hct 35.4 L (37.0-47.0) % MCV 91.9 (80.0-98.0) fL MCH 30.9 (27.0-33.0) pg MCHC 33.6 (31.0-35.0) g/dl RDW 12.7 (11.0-16.0) % Plt Count 274 (160-400) X10*3/uL MPV 8.9 L (9.4-12.3) fL Immature Gran % (Auto) 0.7 H (0.0-0.4) % Neut % (Auto) 72.1 (45-73) % Lymph % (Auto) 16.3 L (20-40) % [place] % (Auto) 7.4 (2-11) % Eos % (Auto) 3.2 (0-4) % Baso % (Auto) 0.3 (0-2) % Lymph # (Auto) 1.8 (1.2-4.9) X10*3/uL [place] # (Auto) 0.8 (0.1-1.2) X10*3/uL Eos # (Auto) 0.3 (0.0-0.4) X10*3/uL Baso # (Auto) 0.0 (0.0-0.2) X10*3/uL Abs Immat Gran (auto) 0.07 H (0.00-0.03) X10*3/uL Absolute Neuts (auto) 7.8 (2.0-8.3) x10*3/uL Absolute Nucleated RBC 0.000 (0.0-0.012) X10*3/uL Nucleated RBC % (auto) 0.0 (0.0-0.2) /100WBC Sodium 139 (135-145) mmol/L Potassium 3.2 L (3.3-5.1) mmol/L Chloride 104 (96-108) mmol/L Carbon Dioxide 21 L (22-29) mmol/L Anion Gap 17 (12-20) BUN 10 (9-16) mg/dL Creatinine 0.76 (0.5-1.4) mg/dL Estim Creat Clear Calc 113.6 Estimated GFR > 60 Random Glucose 205 H (60-115) mg/dL Calcium 8.8 (8.4-10.2) mg/dL Total Bilirubin 0.2 (0.0-1.0) mg/dL AST 27 (5-31) U/L ALT 33 H (0-31) U/L Alkaline Phosphatase 151 H (39-117) U/L Total Protein 6.6 (6.5-8.0) g/dL Albumin 4.1 (3.5-5.0) g/dL Urine Color Yellow Urine Appearance Clear Urine pH 5.5 (5.0-9.0) Ur Specific [place] <= 1.005 (1.005-1.025) Urine Protein Negative (Neg-Trace) mg/dL Urine Glucose (UA) Negative (Negative) mg/dL Urine Ketones Negative (Negative) mg/dL Urine Blood Small (1+) H (Negative) Urine Nitrite Negative (Negative) Ur Leukocyte Esterase Negative (Negative) Urine RBC 0-2 (0-2) /HPF Urine WBC 0-5 (0-5) /HPF Ur Squamous Epith Cells 0-2 (0-2) /HPF Urine Bacteria None Seen (None Seen) Hyaline Casts 0-2 (0-2) /LPF Urine Opiates Screen Not Detected (Not Detect) Ur Buprenorphine Scrn Not Detected (Not Detect) ng/mL Ur Oxycodone Screen Not Detected (Not Detect) ng/mL Urine Methadone Screen Not Detected (Not Detect) ng/mL Urine Fentanyl Screen Not Detected (Not Detect) Ur Barbiturates Screen Not Detected (Not Detect) Ur Phencyclidine Scrn Not Detected (Not Detect) Ur Amphetamines Screen Not Detected (Not Detect) U Benzodiazepines Scrn Not Detected (Not Detect) Urine Cocaine Screen Not Detected (Not Detect) U Marijuana (THC) Screen Not Detected (Not Detect) Discharge Plan Discharge Clinical Impression: Suicidal ideation, Visual hallucinations, Auditory hallucinations Patient Disposition: Home, Self-Care Additional Instructions: Cleared for discharge back to long term Prescriptions: No Action glycopyrrolate 1 mg tablet 1 mg PO BID atorvastatin 10 mg tablet 10 mg PO DAILY lorazepam 0.5 mg tablet 0.5 mg PO BID PRN (Reason: Anxiety) Rx Instructions: Take 1 tablet at 9am and 1 tablet at 4pm ferrous sulfate 325 mg (65 mg iron) tablet 325 mg PO BID montelukast 10 mg tablet 10 mg PO DAILY mirtazapine 15 mg tablet 15 mg PO BEDTIME ibuprofen 600 mg tablet 600 mg PO Q6H PRN (Reason: Mild Pain (Scale Score 1-4)) Trelegy Ellipta 200-62.5-25 mcg blister with device 1 ea inhalation DAILY fluoxetine 40 mg Capsule 80 mg PO DAILY famotidine 20 mg Tablet 20 mg PO TIDWM ascorbic acid (vitamin C) [Vitamin C] 500 mg Tablet 500 mg PO BID buspirone 10 mg Tablet 10 mg PO BID benztropine 1 mg Tablet 1 mg PO BID naproxen 500 mg Tablet 500 mg PO BID PRN (Reason: Pain (Scale Score 4-6)) temazepam 15 mg Capsule 15 mg PO BEDTIME PRN (Reason: Insomnia) pantoprazole 40 mg Tablet,Delayed Release (Dr/Ec) 40 mg PO BID acetaminophen 325 mg Tablet 650 mg PO Q6H PRN (Reason: Headache/Pain, Scale 1-10) Qty: 0 0RF haloperidol 5 mg Tablet 5 mg PO BID@0900,1500 Qty: 60 0RF trazodone 50 mg Tablet 50 mg PO BEDTIME MRX1 PRN (Reason: Insomnia) Qty: 60 0RF nicotine 21 mg/24 hr Patch 24 Hour 21 mg transdermal DAILY PRN (Reason: smoking cessation) Qty: 30 0RF clozapine 100 mg tablet 200 mg PO BEDTIME albuterol sulfate 90 mcg/actuation HFA aerosol inhaler 2 puff inhalation Q6H PRN (Reason: Wheezing) prazosin 2 mg capsule 4 mg PO BEDTIME metformin 500 mg tablet 500 mg PO BID amlodipine 2.5 mg Tablet 7.5 mg PO DAILY 30 Days Qty: 90 0RF Protocol: Hold for SBP< HOLD for SBP < : 90 nystatin 100,000 unit/gram Cream 1 appl topical BID 30 Days Qty: 30 0RF Protocol: Apply to: Apply to: affected area hydrochlorothiazide 12.5 mg Tablet 12.5 mg PO DAILY 30 Days Qty: 30 0RF Protocol: Hold for SBP< HOLD for SBP < : 90 haloperidol 5 mg Tablet 15 mg PO BEDTIME 30 Days Qty: 90 0RF Interventions: Kimberly-Suicide Risk Severity Scale Last Done: 06/29/25 01:37 Print Language: Cypriot
--- NOTE | 2025-06-29 05:50 | PC.NURSE ---
Addendum entered by Galina Levy RN 06/29/25 05:53: sitter in place Original Note: pt is alert and oriented, skin pwd, respirations even and unlabored, pt reports a headache 06/24, pt reports that her voices are telling her to cut herself, pt does have superficial sarapes on her left wrist area, pt is reporting feeling suicidal
[2025-06-29 06:27] LABS: Appearance Urine Clear; Glucose Urine UA Negative (Negative); PH 5.5 (5.0-9.0); Specific Gravity - Urine <= 1.005 (1.005-1.025); UMIC TRIGGER UACC YES
[2025-06-29 06:39] LABS: Cannabinoid Screen Urine Not Detected (Not Detect)
--- NOTE | 2025-06-29 07:33 | PC.NURSE ---
Assumed care of patient. Pt calm, cooperative, resting with eyes closed. Pt allowed to rest at this time. RR even and unlabored, no visible s/s of distress.
--- NOTE | 2025-06-29 09:30 | PC.NURSE ---
called pharmacy to do the med/rec
--- NOTE | 2025-06-29 09:49 | PHA.MEDREC ---
Pharmacy Consult ? Medication Reconciliation Pharmacy has completed the medication reconciliation. Pt was here yesterday and discharged, continued meds from that admission.
--- NOTE | 2025-06-29 11:00 | PC.NURSE ---
pt is currently denies si at this time
== END 2025-06-29 11:32 | disposition home or self-care (01) ==
PROVIDERS: Emergency Provider Emergency Medicine; PCP Nurse Practitioner Family
DX: R44.0 Auditory hallucinations (principal); R44.1 Visual hallucinations; R45.851 Suicidal ideations; Z51.81 Encounter for therapeutic drug level monitoring; Z79.899 Other long term (current) drug therapy
CPT/HCPCS: 36415; 80053; 80307; 81001; 85025; 99285; S9485

== ENCOUNTER 2025-06-29 19:10 | Emergency (ER) | payer MEDICARE, MEDICAID, SELFPAY ==
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
[2025-06-29 19:34] VITALS: BP 119/61; PULSE 113; RESP 19; TEMP 36.7; O2SAT 95
[2025-06-29 19:40] VITALS: BMI 42.6
[2025-06-29 20:37] LABS: MANUAL DIFF FLAG NO
[2025-06-29 20:41] LABS: Appearance Urine Clear; Glucose Urine UA Negative (Negative); PH 6.0 (5.0-9.0); Specific Gravity - Urine <= 1.005 (1.005-1.025); UMIC TRIGGER UA YES
[2025-06-29 20:42] LABS: Hematocrit 36.6 % (37.0-47.0); Hemoglobin 12.5 g/dl (12.0-16.0); Imm Gran Abs Auto 0.07 X10*3/uL (0.00-0.03); Imm Gran Pct Auto 0.9 % (0.0-0.4); Lymphocytes Absolute Auto 1.7 X10*3/uL (1.2-4.9); Mean Corpuscular HGB Conc 34.2 g/dl (31.0-35.0); Mean Corpuscular Hemoglobin 31.3 pg (27.0-33.0); Mean Corpuscular Volume 91.5 fL (80.0-98.0); NRBC Abs Auto 0.000 X10*3/uL (0.0-0.012); NRBC Pct Auto 0.0 /100WBC (0.0-0.2); Platelet Count 290 X10*3/uL (160-400); Red Blood Count 4.00 X10*6/uL (4.20-5.50); White Blood Count 7.9 X10*3/uL (4.8-10.8)
[2025-06-29 20:50] LABS: Cannabinoid Screen Urine Not Detected (Not Detect)
[2025-06-29 20:56] LABS: Acetaminophen LAB < 3 mcg/mL (<30); Alanine Aminotransferase 34 U/L (0-31); Albumin Level 4.5 g/dL (3.5-5.0); Alkaline Phosphatase 163 U/L (39-117); Anion Gap 16 (12-20); Aspartate Amino Transferase 25 U/L (5-31); Blood Urea Nitrogen 10 mg/dL (9-16); Calcium 9.1 mg/dL (8.4-10.2); Carbon Dioxide 24 mmol/L (22-29); Chloride 106 mmol/L (96-108); Creatinine Clr Calc Pharmacy 125.7; Estimated Glomerular Filt Rate > 60; Potassium 3.7 mmol/L (3.3-5.1); Salicylate < 5.0 mg/dL (15-30); Sodium 142 mmol/L (135-145); Total Protein 7.1 g/dL (6.5-8.0)
--- OUTSIDE RECORDS SUMMARY | 2025-06-29 21:52 | XMS_ITS | Clinical Summary ---
Author Organization [facility] Address [address] [place] [phone] Phone Care Team Providers Care Development Coordinator Name Role Phone Alma Maribel Primary Care Provider Allergies Active Allergy Reactions Criticality Noted Date Comments Azithromycin Rash Low 09/07/2024 Codeine Unknown 09/07/2024 Pt doesn't recall Fish Derived Unknown 10/14/2024 Ziprasidone Hcl Unknown 09/07/2024 Pt doesn't recall [place] Unknown 09/07/2024 Pt doesn't recall Nitrofurantoin Monohyd/M-Cryst [...] PM EDT - 06/27/2025 1:34 AM EDT [facility] [address] [place] [phone] Constipation, unspecified constipation type (Primary Dx) Discharge Disposition: Home or Self Care 06/24/2025 1:59 AM EDT - 06/24/2025 10:03 AM EDT [facility] [address] [place] [phone] Julian Clarke MD Wire, Jessica, MD Suicidal ideation (Primary Dx); Hallucinations; Epigastric abdominal pain Discharge Disposition: Home or Self Care 06/17/2025 3:00 AM EDT - 06/17/2025 4:44 PM EDT [facility] [address] [place] [phone] Aureliano Crump MD Mersier, Jasmine, DO Auditory hallucinations (Primary Dx); Intentional self-harm by sharp object, initial encounter ([facility] V24, [facility] V28) Discharge Disposition: [facility] 06/03/2025 1:03 AM EDT - 06/03/2025 10:30 AM EDT [facility] [address] [place] [phone] Rudi Hilliard MD Franco, Andrew S, MD Suicidal ideations (Primary Dx); Dermoid cyst of right ovary; Acute UTI Discharge Disposition: Home or Self Care 05/25/2025 Lab Requisition [facility] - Main Lab [address] [facility] [place] [phone] Wanda Cleveland NP [facility] [place] [facility] (current) drug therapy 05/18/2025 6:33 PM EDT - 05/18/2025 9:54 PM EDT Emergency [facility] [address] [place] [phone] Janine Stewart DO Auditory hallucinations (Primary Dx); Deliberate self-cutting Discharge Disposition: Home or Self Care 05/02/2025 8:55 PM EDT - 05/03/2025 10:35 AM EDT [facility] [address] [place] [phone] Karolina Gracia MD Goebel, Mathew, MD Suicidal ideation (Primary Dx) Discharge Disposition: Home or Self Care 04/18/2025 8:18 PM EDT - 04/18/2025 10:04 PM EDT [facility] [address] [place] [phone] Rosemary Cash DO Auditory hallucinations (Primary Dx) Discharge Disposition: Home or Self Care 04/11/2025 9:55 PM EDT - 04/12/2025 9:36 AM EDT [facility] [address] [place] [phone] Rosemary Cash DO Montano, Gary L, MD [...] 07/13/1999 DX:Asthma Bipolar disorder ([facility] V2 4, [facility] V28) 12/12/2005 DX:Bipolar disorder ([facility]) GERD (gastroesophageal reflux disease) 01/20/2016 DX:GERD (gastroesophageal reflux disease) History of pseudoseizure 06/10/2012 DX:Hist ory of pseudoseizure Hypercholesteremia 07/17/2007 DX:Hyperchole steremia Tobacco use disorder 02/17/2010 DX:Tobacco use disorder Migraine 06/25/2017 DX:Migraine; COM MENT: Follows with neurologist PTSD (post-traumatic stress disorder) 01/20/2016 DX:PTSD (post-traumatic stress disorder) Borderline personality disor pritesh ([facility] [place], [facility] V28) 06/26/2017 DX:Borderline personality d isorder ([facility]) Marijuana use 06/26/2017 DX:Marijuana use First degree AV block 10/09/2017 DX:First d egree AV block; COMMENT: Follows with [facility] 09/2017. Holter pending Pericardial effusion 10/09/2017 DX:Pericard ial effusion; COMMENT: TTE while hospitalized 09/2017 follows with [facility]. Repeat TTE ordered. Not hemodynamically significant Depression 09/02/2002 DX:Depression; C OMMENT: S/p multiple psych admissions for suicide attempts and self harm. Overdosing on aspirin, tylenol, ibuprofen Obesity (BMI 30-39.9) 06/24/2019 DX:Obesity (BMI 30-39.9) Suicide attempt by acetamino phen overdose ([facility] V24, [facility] V28) 10/26/2020 DX:Suicide attempt by acetaminophen overdose ([facility]); COMMENT: [...] LAB CHEMISTRY METHOD 06/27/2025 12:29 AM EDT [facility] Blood Venous blood specimen / Unknown Venipuncture / Unknown 06/26/2025 11:25 PM EDT 06/26/2025 11:49 PM EDT Julio CAPELLAN LAB BLOOD ORDERABLES Final Result [facility] [address] [place] [address], * (ABNORMAL) Comprehensive Metabolic Panel (CMP) (06/26/2025 11:25 PM EDT) Only the most recent of7 resultswithin the time period is included. Pathologist [facility] Sodium 137 133 - 145 mmol/L LAB CHEMISTRY METHOD 06/27/2025 12:32 AM [facility] Potassium 3.3(L) 3.5 - 5.5 mmol/L LAB CHEMISTRY METHOD 06/27/2025 12:32 AM [facility] Chloride 103 96 - 110 mmol/L LAB CHEMISTRY METHOD 06/27/2025 12:32 AM [facility] CO2 26 21 - 32 mmol/L LAB CHEMISTRY METHOD 06/27/2025 12:32 AM [facility] Anion Gap 8 3 - 11 LAB CHEMISTRY METHOD 06/27/2025 12:32 AM [facility] Glucose 114(H) 70 - 100 mg/dL LAB CHEMISTRY METHOD 06/27/2025 12:32 AM [facility] BUN 9 5 - 25 mg/dL LAB CHEMISTRY METHOD 06/27/2025 12:32 AM [facility] Creatinine 0.66 0.50 - 1.10 mg/dL LAB CHEMISTRY METHOD 06/27/2025 12:32 AM [facility] eGFR 109 >=60 mL/min/1. 73m2 LAB CHEMISTRY METHOD 06/27/2025 12:32 AM [facility] Comment:Calculation based on the Chronic Kidney Disease Epidemiology Collaboration (CKD-EPI) equation refit without adjustment for race. BUN/Creatinine Ratio 13.6 LAB CHEMISTRY METHOD 06/27/2025 12:32 AM [facility] Calcium 8.1(L) 8.5 - 10.5 mg/dL LAB CHEMISTRY METHOD 06/27/2025 12:32 AM [facility] AST (SGOT) 28 10 - 42 unit/L LAB CHEMISTRY METHOD 06/27/2025 12:32 AM [facility] ALT (SGPT) 30 10 - 60 unit/L LAB CHEMISTRY METHOD 06/27/2025 12:32 AM [facility] Alkaline Phosphatase 155(H) 42 - 121 unit/L LAB CHEMISTRY METHOD 06/27/2025 12:32 AM [facility] Total Protein 5.9(L) 6.0 - 8.0 g/dL LAB CHEMISTRY METHOD 06/27/2025 12:32 AM [facility] Albumin 3.2 3.2 - 5.0 g/dL LAB CHEMISTRY METHOD 06/27/2025 12:32 AM [facility] Total Bilirubin 0.2 0.0 - 1.4 mg/dL LAB CHEMISTRY METHOD 06/27/2025 12:32 AM [facility] Blood Venous blood specimen / Unknown Venipuncture / Unknown 06/26/2025 11:25 PM EDT 06/26/2025 11:49 PM EDT us Julio CAPELLAN LAB BLOOD ORDERABLES Final Result [facility] [address] [place] [address], * CBC (06/26/2025 10:07 PM EDT) WBC 10.0 4.8 - 10.8 K/mcL LAB HEMETOLOGY METHOD 06/26/2025 10:52 PM EDT [facility] RBC 3.90 3.80 - 4.80 M/mcL LAB HEMETOLOGY METHOD 06/26/2025 10:52 PM EDT [facility] Hemoglobin 12.1 11.5 - 16.0 g/dL LAB HEMETOLOGY METHOD 06/26/2025 10:52 PM EDT [facility] Hematocrit 35.8 35.0 - 47.0 % LAB HEMETOLOGY METHOD 06/26/2025 10:52 PM EDT [facility] MCV 92.0 79.0 - 98.0 FL LAB HEMETOLOGY METHOD 06/26/2025 10:52 PM EDT [facility] MCH 31.1 27.0 - 32.0 pcg LAB HEMETOLOGY METHOD 06/26/2025 10:52 PM EDT [facility] MCHC 33.8 32.0 - 37.0 g/dL LAB HEMETOLOGY METHOD 06/26/2025 10:52 PM EDT [facility] RDW 12.7 11.0 - 15.0 % LAB HEMETOLOGY METHOD 06/26/2025 10:52 PM EDT [facility] Platelets 287 130 - 400 K/mcL LAB HEMETOLOGY METHOD 06/26/2025 10:52 PM EDT [facility] MPV 9.6 7.0 - 11.0 FL LAB HEMETOLOGY METHOD 06/26/2025 10:52 PM EDT [facility] NRBC 0.0 <1.0 % LAB HEMETOLOGY METHOD 06/26/2025 10:52 PM EDT [facility] NRBC Absolute 0.00 <0.10 K/mcL LAB HEMETOLOGY METHOD 06/26/2025 10:52 PM EDT [facility] Blood Venous blood specimen / Unknown Venipuncture / Unknown 06/26/2025 10:07 PM EDT 06/26/2025 10:43 PM EDT Julio CAPELLAN LAB BLOOD ORDERABLES Final Result [facility] [address] [place] [address], [place] [phone] * hCG Qualitative (06/26/2025 10:07 PM EDT) Only the most recent of2 resultswithin the time period is included. hCG Qual Negative Negative 06/26/2025 11:17 PM EDT [facility] Blood Venous blood specimen / Unknown Venipuncture / Unknown 06/26/2025 10:07 PM EDT 06/26/2025 10:43 PM EDT Julio CAPELLAN LAB BLOOD ORDERABLES Final Result [facility] [address] [place] [address], [place] [phone] * ECG-Annotated (06/25/2025) Only the most recent of4 resultswithin the time period is included. Provider Onbase MD ECG ORDERABLES Final Result * Urinalysis with reflex microscopic (06/24/2025 3:15 AM EDT) Only the most recent of2 resultswithin the time period is included. Specific [place] Urine 1.009 1.003 - 1.030 LAB URINALYSIS - AUTOMATED METHOD 06/24/2025 4:10 AM [facility] pH, Urine 6.5 5.0 - 8.0 pH LAB URINALYSIS - AUTOMATED METHOD 06/24/2025 4:10 AM [facility] Leukocytes, Urine Negative Negative LAB URINALYSIS - AUTOMATED METHOD 06/24/2025 4:10 AM [facility] Nitrite, Urine Negative Negative LAB URINALYSIS - AUTOMATED METHOD 06/24/2025 4:10 AM [facility] Protein, Urine Negative <=Trace mg/dL LAB URINALYSIS - AUTOMATED METHOD 06/24/2025 4:10 AM [facility] Glucose, Urine Negative Negative mg/dL LAB URINALYSIS - AUTOMATED METHOD 06/24/2025 4:10 AM [facility] Ketones, Urine Negative Negative mg/dL LAB URINALYSIS - AUTOMATED METHOD 06/24/2025 4:10 AM [facility] Urobilinogen, Urine 0.2 0.2 - 1.0 mg/dL LAB URINALYSIS - AUTOMATED METHOD 06/24/2025 4:10 AM [facility] Bilirubin, Urine Negative Negative LAB URINALYSIS - AUTOMATED METHOD 06/24/2025 4:10 AM [facility] Blood, Urine Negative Negative LAB URINALYSIS - AUTOMATED METHOD 06/24/2025 4:10 AM [facility] Urine Urine specimen obtained by clean catch procedure / Unknown Non-blood Collection / Unknown 06/24/2025 3:15 AM EDT 06/24/2025 3:53 AM EDT us Julian Clarke MD LAB URINE ORDERABLES Final R esult [facility] [address] [place] [address], * Drug abuse screen 8a panel, urine (06/24/2025 3:15 AM EDT) Only the most recent of6 resultswithin the time period is included. Amphetamine Screen, Ur Negative Negative LAB CHEMISTRY METHOD 06/24/2025 4:14 AM [facility] Comment:Certain OTC medicati ons containing ephedrine, phenylephrine, pseudoephedrine and phenylpropanolamine can cause false positive results. Barbiturate Screen, Ur Negative Negative LAB CHEMISTRY METHOD 06/24/2025 4:14 AM [facility] Benzodiazepine Screen, Ur Negative Negative LAB CHEMISTRY METHOD 06/24/2025 4:14 AM [facility] Cocaine Screen, Ur Negative Negative LAB CHEMISTRY METHOD 06/24/2025 4:14 AM [facility] Opiate Screen, Ur Negative Negative LAB CHEMISTRY METHOD 06/24/2025 4:14 AM [facility] Cannabinoid (THC) Screen, Ur Negative Negative LAB CHEMISTRY METHOD 06/24/2025 4:14 AM [facility] Comment:Specimens from patie nts taking pantoprazole sodium (Protonix) have been shown to produce false positive results. Oxycodone Screen, Ur Negative Negative LAB CHEMISTRY METHOD 06/24/2025 4:14 AM [facility] Fentanyl, Ur Negative Negative LAB CHEMISTRY METHOD 06/24/2025 4:14 AM [facility] Urine Urine specimen obtained by clean catch procedure / Unknown Non-blood Collection / Unknown 06/24/2025 3:15 AM EDT 06/24/2025 3:53 AM EDT [facility] - 06/24/2025 4:14 AM EDT [...] ORDERABLES Final R esult [facility] [address] [place] [address], [place] [phone] * POC , urine manually resulted (06/24/2025 [...] GEMUSE QTc 492 ms GEMUSE P Wave [place] 46 degrees GEMUSE R Cedar 24 degrees GEMUSE T Cedar 45 degrees GEMUSE ECG Interpretation Sinus tachycardia [...] LAB CHEMISTRY METHOD 06/24/2025 3:21 AM EDT [facility] Blood Venous blood specimen / Unknown Venipuncture / Unknown 06/24/2025 2:23 AM EDT 06/24/2025 2:50 AM EDT Julian Clarke MD LAB BLOOD ORDERABLES [facility] Performing Organization Address City/[facility] Co de Phone Number [facility] [address] [place] [address], [place] [phone] * Troponin I High Sensitivity (06/24/2025 2:23 AM EDT) Only the most recent of2 resultswithin the time period is included. [facility] High Sensitivity Troponin I 4 <=54 ng/L LAB CHEMISTRY METHOD 06/24/2025 3:21 AM EDT [facility] Blood Venous blood specimen / Unknown Venipuncture / Unknown 06/24/2025 2:23 AM EDT 06/24/2025 2:51 AM EDT Narrative [facility] - 06/24/2025 3:21 AM EDT High levels of biotin in samples may falsely decrease hsTroponin values. Use caution when interpreting hsTroponin results in patients taking biotin who exhibit renal impairment (eGFR <60) or in patients taking more than 20 mg/day of biotin. Julian Clarke MD LAB BLOOD ORDERABLES Final R [facility] Performing Organization Address [facility] Co de Phone Number [facility] [address] [place] [address], [place] [phone] * (ABNORMAL) CBC auto differential (06/24/2025 2:23 AM EDT) Only the most recent of6 resultswithin the time period is included. [facility] WBC 7.9 4.8 - 10.8 K/[facility] LAB HEMETOLOGY METHOD 06/24/2025 2:58 AM EDT [facility] RBC 3.90 3.80 - 4.80 M/[facility] LAB HEMETOLOGY METHOD 06/24/2025 2:58 AM EDT [facility] Hemoglobin 12.1 11.5 - 16.0 g/dL LAB HEMETOLOGY METHOD 06/24/2025 2:58 AM [facility] Hematocrit 36.7 35.0 - 47.0 % LAB HEMETOLOGY METHOD 06/24/2025 2:58 AM [facility] MCV 93.6 79.0 - 98.0 FL LAB HEMETOLOGY METHOD 06/24/2025 2:[facility] MCH 30.9 27.0 - 32.0 pcg LAB HEMETOLOGY METHOD 06/24/2025 2:58 AM [facility] MCHC 33.0 32.0 - 37.0 g/dL LAB HEMETOLOGY METHOD 06/24/2025 2:58 AM [facility] RDW 12.7 11.0 - 15.0 % LAB HEMETOLOGY METHOD 06/24/2025 2:58 AM [facility] Platelets 277 130 - 400 K/mcL LAB HEMETOLOGY METHOD 06/24/2025 2:58 AM [facility] MPV 9.4 7.0 - 11.0 FL LAB HEMETOLOGY METHOD 06/24/2025 2:58 AM [facility] NRBC 0.0 <1.0 % LAB HEMETOLOGY METHOD 06/24/2025 2:58 AM [facility] NRBC Absolute 0.00 <0.10 K/mcL LAB HEMETOLOGY METHOD 06/24/2025 2:58 AM [facility] Neutrophils Relative 58.5 % LAB HEMETOLOGY METHOD 06/24/2025 2:58 AM [facility] Lymphocytes Relative 24.7 % LAB HEMETOLOGY METHOD 06/24/2025 2:58 AM [facility] Monocytes Relative 9.8 % LAB HEMETOLOGY METHOD 06/24/2025 2:58 AM EDT [facility] Eosinophils Relative 5.3 % LAB HEMETOLOGY METHOD 06/24/2025 2:58 AM EDT [facility] Basophils Relative 0.6 % LAB HEMETOLOGY METHOD 06/24/2025 2:58 AM EDT [facility] Immature Granulocytes Relative 1.1 % LAB HEMETOLOGY METHOD 06/24/2025 2:58 AM EDT [facility] Neutrophils Absolute 4.64 1.50 - 7.00 K/mcL LAB HEMETOLOGY METHOD 06/24/2025 2:58 AM EDT [facility] Lymphocytes Absolute 1.96 1.00 - 5.00 K/mcL LAB HEMETOLOGY METHOD 06/24/2025 2:58 AM EDT [facility] Monocytes Absolute 0.78 0.20 - 1.00 K/mcL LAB HEMETOLOGY METHOD 06/24/2025 2:58 AM EDT [facility] Eosinophils Absolute 0.42 0.00 - 0.50 K/mcL LAB HEMETOLOGY METHOD 06/24/2025 2:58 AM EDT [facility] Basophils Absolute 0.05 0.00 - 0.20 K/mcL LAB HEMETOLOGY METHOD 06/24/2025 2:58 AM EDT [facility] Immature Granulocytes Absolute 0.09(H) 0.00 - 0.03 K/mcL LAB HEMETOLOGY METHOD 06/24/2025 2:58 AM EDT [facility] Blood Venous blood specimen / Unknown Venipuncture / Unknown 06/24/2025 2:23 AM EDT 06/24/2025 2:51 AM EDT us Julian Clarke MD LAB BLOOD ORDERABLES Final R esult [facility] [address] [place] [address], [place] [phone] * (ABNORMAL) Magnesium (06/24/2025 2:23 AM EDT) Magnesium 1.6(L) 1.9 - 2.6 mg/dL LAB CHEMISTRY METHOD 06/24/2025 3:22 AM EDT [facility] Blood Venous blood specimen / Unknown Venipuncture / Unknown 06/24/2025 2:23 AM EDT 06/24/2025 2:52 AM EDT us Julian Clarke MD LAB BLOOD ORDERABLES Final R esult Performing Organization Address City/[facility]/ZIP Co de Phone Number [facility] [address] [place] [address], [place] [phone] * Ethanol (06/24/2025 2:23 AM EDT) Only the most recent of6 resultswithin the time period is included. Ethanol Level <3 0 - 10 mg/dL LAB CHEMISTRY METHOD 06/24/2025 3:22 AM EDT [facility] Blood Venous blood specimen / Unknown Venipuncture / Unknown 06/24/2025 2:23 AM EDT 06/24/2025 2:52 AM EDT us Julian Clarke MD LAB BLOOD ORDERABLES Final R esult [facility] [address] [place] [address], [place] [phone] * (ABNORMAL) Acetaminophen level (06/24/2025 2:23 AM EDT) Only the most recent of6 resultswithin the time period is included. Acetaminophen Level <2.0(L) 10.0 - 30.0 mcg/mL LAB CHEMISTRY METHOD 06/24/2025 3:26 AM EDT [facility] Blood Venous blood specimen / Unknown Venipuncture / Unknown 06/24/2025 2:23 AM EDT 06/24/2025 2:52 AM EDT Julian Clarke MD LAB BLOOD ORDERABLES Final R esult Performing Organization Address City/[facility]/ZIP Co de Phone Number [facility] [address] [place] [address], [place] [phone] * Salicylate Level (06/24/2025 2:23 AM EDT) Only the most recent of6 resultswithin the time period is included. Salicylate Level 2.4 2.0 - 29.0 mg/dL LAB CHEMISTRY METHOD 06/24/2025 3:26 AM EDT [facility] Blood Venous blood specimen / Unknown Venipuncture / Unknown 06/24/2025 2:23 AM EDT 06/24/2025 2:52 AM EDT Julian Clarke MD LAB BLOOD ORDERABLES Final R esult Performing Organization Address [facility]/ZIP Co de Phone Number [facility] [address] [place] [address], [place] [phone] * Buprenorphine screen, urine (06/17/2025 3:20 AM EDT) Only the most recent of5 resultswithin the time period is included. Buprenorphine Screen Urine Negative Negative LAB CHEMISTRY METHOD 06/17/2025 4:04 AM EDT [facility] Urine Urine specimen obtained by clean catch procedure / Unknown Non-blood Collection / Unknown 06/17/2025 3:20 AM EDT 06/17/2025 3:25 AM EDT Narrative [facility] - 06/17/2025 4:04 AM EDT Assay cutoff 5 ng/mL Semi-quantitative assay for screening purposes only. Unconfirmed screening result should not be used for non-medical purposes. *ALTERNATE METHOD CONFIRMATION DONE UPON REQUEST ONLY* Cara Ozuna ME LAB URINE ORDERABLES Fin al Result Performing Organization Address [facility] de Phone Number [facility] [address] [place] [address], [place] [phone] * Methadone, urine (06/17/2025 3:20 AM EDT) Only the most recent of5 resultswithin the time period is included. Methadone Screen, Urine Negative Negative LAB CHEMISTRY METHOD 06/17/2025 4:01 AM EDT [facility] Comment: Assay cutoff 300 ng/mL Semi-quantitative assay for screening purposes only. Unconfirmed screening result should not be used for non-medical purposes. *ALTERNATE METHOD CONFIRMATION DONE UPON REQUEST ONLY* Urine Urine specimen obtained by clean catch procedure / Unknown Non-blood Collection / Unknown 06/17/2025 3:20 AM EDT 06/17/2025 3:25 AM EDT Cara Ozuna ME LAB URINE ORDERABLES Fin al Result Performing Organization Address [facility] de Phone Number [facility] [address] [place] [address], [place] [phone] * Phencyclidine, urine (06/17/2025 3:20 AM EDT) Only the most recent of5 resultswithin the time period is included. PCP Scrn, Ur Negative Negative LAB CHEMISTRY METHOD 06/17/2025 4:01 AM EDT [facility] Comment: Assay cutoff 25 ng/mL Semi-quantitative assay for screening purposes only. Unconfirmed screening result should not be used for non-medical purposes. *ALTERNATE METHOD CONFIRMATION DONE UPON REQUEST ONLY* Urine Urine specimen obtained by clean catch procedure / Unknown Non-blood Collection / Unknown 06/17/2025 3:20 AM EDT 06/17/2025 3:25 AM EDT Cara CAPELLAN LAB URINE ORDERABLES Fin al Result [facility] [address] [place] [address], * CT Abdomen Pelvis w Contrast (06/03/2025 [...] tube (06/03/2025 2:49 AM EDT) Pathologist [facility] Extra Tube Hold for add-ons. 06/03/2025 5:01 AM EDT [facility] Comment:Auto resulted. Urine Urine specimen obtained by clean catch procedure / Unknown Non-blood Collection / Unknown 06/03/2025 2:49 AM EDT 06/03/2025 3:04 AM EDT us Rudi Hilliard MD LAB URINE ORDERABLES Final Resul t [facility] [address] [place] [address], [place] [phone] * Beta hydroxybutyrate (06/03/2025 2:49 AM EDT) Beta-Hydroxybu tyrate 1.1 0.2 - 2.8 mg/dL LAB CHEMISTRY METHOD 06/03/2025 3:45 AM EDT [facility] Blood Venous blood specimen / Unknown Venipuncture / Unknown 06/03/2025 2:49 AM EDT 06/03/2025 3:05 AM EDT us Rudi Hilliard MD LAB BLOOD ORDERABLES Final Resul t Performing Organization Address [facility] Co de Phone Number [facility] [address] [place] [address], [place] [phone] * hCG Quantitative (06/03/2025 2:49 AM EDT) hCG Quant <1 mIU/mL LAB CHEMISTRY METHOD 06/03/2025 3:45 AM EDT [facility] Blood Venous blood specimen / Unknown Venipuncture / Unknown 06/03/2025 2:49 AM EDT 06/03/2025 3:05 AM EDT Narrative [facility] - 06/03/2025 3:45 AM EDT Quantitative HCG Reference Ranges Time after Conception MIU/ML 0.2-1 Week 5-50 1-2 Weeks 50-500 2-3 Weeks 100-5,000 3-4 Weeks 500-10,000 4-5 Weeks 1,000-50,000 5-6 Weeks 10,000-100,000 6-8 Weeks 15,000-200,000 2-3 Months 10,000-100,000 2nd Trimester 1,000-94,000 3rd Trimester 2,500-90,000 Non- Females 1-3 us Rudi Hilliard MD LAB BLOOD ORDERABLES Final Resul t Performing Organization Address [facility]/ZIP Co de Phone Number [facility] [address] [place] [address], [place] [phone] * (ABNORMAL) Lactate (06/03/2025 2:49 AM EDT) Lactate 2.8(H) 0.4 - 2.0 mmol/L LAB CHEMISTRY METHOD 06/03/2025 3:31 AM EDT [facility] Blood Venous blood specimen / Unknown Venipuncture / Unknown 06/03/2025 2:49 AM EDT 06/03/2025 3:04 AM EDT Rudi Hilliard MD LAB BLOOD ORDERABLES Final Resul t [facility] [address] [place] [address], [place] [phone] * , Urine (05/18/2025 7:00 PM EDT) Preg Test, Ur Negative Negative 05/18/2025 7:43 PM EDT [facility] Urine Urine specimen obtained by clean catch procedure / Unknown Non-blood Collection / Unknown 05/18/2025 7:00 PM EDT 05/18/2025 7:13 PM EDT Janine Stewart DO LAB URINE ORDERABLES Final Re sult [facility] [address] [place] [address], [place] [phone] * Pap smear (04/22/2024) 04/22/2024 Narrative HISTORICAL TESTING LAB RESULTING AGENCY - 04/28/2024 11:46 AM EDT [id number] THINPREP PAP, IMAGED: NEGATIVE FOR SQUAMOUS INTRAEPITHELIAL LESION AND MALIGNANCY GREG LANZA(ASCP) (CASE ELECTRONICALLY SIGNED 04 28 2024) RESULT OF APTIMA HIGH RISK HPV ASSAY: HIGH RISK HPV: NEGATIVE (SEROTYPES 16,18,31,33,35,39,45,51,52,56,58,59,66,68) COMPLETED ON 2024-04-24 ADEQUACY: SATISFACTORY ENDOCERVICAL/TRANSFORMATION ZONE COMPONENT PRESENT. SOURCE: THINPREP PAP HPV ANY DX: REFLEX 16 AND 18, CERVICAL, IMAGED CLINICAL INFORMATION: HPV ANY DIAGNOSIS. PAP HX NEGATIVE, [Z01.419] Rebecca Kimbrough [facility] LAB CYTOLOGY ORDERABLES Final Result HISTORICAL [...] Documents on File Type Date Recorded Patient Electronics Technician Expl anation Health Care Decision (hx) [...] (hx) 07/03/2023 AD MARTINEZ DIRECTIVE Care Teams Development Coordinator Relationship Specialty Start Date End Date Maribel Marquez [address] [place] [id number] PCP - General 09/08/24
--- OUTSIDE RECORDS SUMMARY | 2025-06-29 21:53 | XMS_ITS | Encounter Summary ---
Author Organization [facility] Address [address] [place] [address] Care Team Providers Care Computer Networking Instructor Name Role Phone Maribel Marquez Primary Care Provider [phone] Encounter Details Date Type Department Care Team (Late st Contact Info) Description 05/25/2025 Lab Requisition [facility] - Main Lab [address] [facility] [place] [address] Wanda Cleveland NP [address] [place] [id number] Other nursing home (current) drug therapy Social History Tobacco Use [...] of this encounter Visit Diagnoses Diagnosis 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
--- OUTSIDE RECORDS SUMMARY | 2025-06-29 21:53 | XMS_ITS | Clinical Summary ---
Author Organization [facility] Address [address] [address] Phone Care Team Providers Care Risk Officer Name Role Phone Maribel Marquez NP Primary Care Provider + Allergies Active Allergy Reactions Criticality Noted Date Comments Azithromycin 05/18/2023 Codeine 04/21/2009 Unknown reaction Lashmeet Other (See Comments) 02/27/2013 pt reports 01/17/13 [...] EST) SODIUM 140 136 - 145 mmol/L [facility] POTASSIUM 3.7 3.4 - 5.1 mmol/L [facility] CHLORIDE 102 98 - 107 mmol/L [facility] CO2 23 22 - 31 mmol/L [facility] BUN 12 6 - 23 mg/dL [facility] CREATININE 0.63 0.50 - 1.20 mg/dL [facility] GLUCOSE 160(H) 70 - 100 mg/dL [facility] CALCIUM 9.2 8.8 - 10.7 mg/dL [facility] EGFR 111 >59 mL/min/1.7 3m2 [facility] Comment:Estimated glomerular filtration rate calculated using the CKD-EPI refit equation. ANION GAP 15 7 - 17 mmol/L [facility] Blood 08/24/2024 3:05 AM EST 08/24/2024 3:15 AM EST Parvez Duenas MD, MPH LAB BLOOD ORDERABLES F inal Result [facility] [address] [place] [address] from Last 3 Months or Most Recently Relevant to Health Maintenance Insurance [facility] MEDICARE PART A & B [facility] & B [place] [facility] & [place] & B [facility] MEDICARE PART A & B Care Teams Risk Officer Relationship Specialty Start Date End Date Maribel Marquez NP [address] [place] [address] PCP - General Nurse Practitioner 04/02/24 Additional Source Comments The information contained in this document represents components of the legal health record. It is not the complete legal health record.[facility]
[2025-06-29] MEDS: Albuterol Sulfate 90 MCG 8 GM INHALER 4 PUFF INHALE (22:07)
[2025-06-29 22:08] VITALS: PULSE 104; RESP 16; O2SAT 96
--- NOTE | 2025-06-29 22:09 | ED.GENADULT ---
HPI - General Adult General Chief complaint: Psychiatric Symptoms Stated complaint: hallucinations Time Seen by Provider: 06/29/25 20:28 Source: patient, RN notes reviewed and old records reviewed Mode of arrival: EMS Limitations: no limitations History of Present Illness ED Provider: Hilda KIRBY narrative: 49-year-old female with a past medical history significant for PTSD, borderline personality disorder, chronic auditory and visual hallucinations, type 2 diabetes, asthma presents for evaluation of suicidal ideation. The patient was seen in his ER earlier this morning for a similar complaint. She reports that she had felt better and requested discharge home. She reports that she is hearing voices and seeing her father who is The patient states that the voices are telling her to cut her wrists ?the long way. She reports being compliant with her medications. She also states she has a plan to overdose but reports that she has not taken any medications to harm herself She feels as though she needs to go inpatient. ? Related Data Home Medications ?Medication ?Instructions ?Recorded ?Confirmed albuterol sulfate 90 mcg/actuation 2 puff inhalation Q6H PRN Wheezing 06/24/24 06/30/25 aerosol inhaler clozapine 100 mg tablet 200 mg PO BEDTIME 06/24/24 06/29/25 prazosin 2 mg capsule 4 mg PO BEDTIME 06/24/24 06/30/25 metformin 500 mg tablet 500 mg PO BID 07/15/24 06/30/25 atorvastatin 10 mg tablet 10 mg PO DAILY 05/23/25 06/30/25 ferrous sulfate 325 mg (65 mg 325 mg PO BID 05/23/25 06/30/25 iron) tablet fluticasone fur. 200 mcg-umeclid 1 ea inhalation DAILY 05/23/25 06/29/25 62.5 mcg-vilant 25 mcg inhalat.powder (Trelegy Ellipta) glycopyrrolate 1 mg tablet 1 mg PO BID 05/23/25 06/30/25 ibuprofen 600 mg tablet 600 mg PO Q6H PRN Mild Pain (Scale 05/23/25 06/30/25 Score 1-4) lorazepam 0.5 mg tablet 0.5 mg PO BID PRN Anxiety 05/23/25 06/30/25 mirtazapine 15 mg tablet 15 mg PO BEDTIME 05/23/25 06/29/25 montelukast 10 mg tablet 10 mg PO DAILY 05/23/25 06/30/25 ascorbic acid (vitamin C) 500 mg 500 mg PO BID 06/18/25 06/30/25 tablet (Vitamin C) benztropine 1 mg tablet 1 mg PO BID 06/18/25 06/29/25 buspirone 10 mg tablet 10 mg PO BID 06/18/25 06/29/25 famotidine 20 mg tablet 20 mg PO TIDWM 06/18/25 06/30/25 fluoxetine 40 mg capsule 80 mg PO DAILY 06/18/25 06/29/25 naproxen 500 mg tablet 500 mg PO BID PRN Pain (Scale 06/18/25 06/29/25 Score 4-6) pantoprazole 40 mg tablet,delayed 40 mg PO BID 06/18/25 06/29/25 release temazepam 15 mg capsule 15 mg PO BEDTIME PRN Insomnia 06/18/25 06/29/25 Previous Rx's ?Medication ?Instructions ?Recorded amlodipine 2.5 mg tablet 7.5 mg PO DAILY 30 days #90 tabs 06/01/25 haloperidol 5 mg tablet 15 mg (3 x 5 mg) PO BEDTIME 30 06/01/25 days #90 tabs hydrochlorothiazide 12.5 mg tablet 12.5 mg PO DAILY 30 days #30 tabs 06/01/25 nystatin 100,000 unit/gram topical 1 appl topical BID 30 days #30 06/01/25 cream grams acetaminophen 325 mg tablet 650 mg (2 x 325 mg) PO Q6H PRN 06/23/25 Headache/Pain, Scale 1-10 #0 tabs haloperidol 5 mg tablet 5 mg PO BID@0900,1500 #60 tabs 06/23/25 nicotine 21 mg/24 hr daily 21 mg transdermal DAILY PRN 06/23/25 transdermal patch smoking cessation #30 ea trazodone 50 mg tablet 50 mg PO BEDTIME MRX1 PRN Insomnia 06/23/25 #60 tabs Allergies Allergy/AdvReac Type Severity Reaction Status Date / Time azithromycin (AZITHROMYCIN) Allergy Severe Rash Verified 06/29/25 19:45 Fish Containing Products Allergy Severe Anaphylaxis Verified 06/29/25 19:45 codeine (Codeine) Allergy Intermediate Rash Verified 06/29/25 19:45 Penicillins Allergy Intermediate Rash Verified 06/29/25 19:45 prednisone (Prednisone) Allergy Intermediate Rash Verified 06/29/25 19:45 Sulfa (Sulfonamide Allergy Intermediate Rash Verified 06/29/25 19:45 Antibiotics) (Sulfa (Sulfonamides)) ziprasidone (From Geodon) Allergy Intermediate dysuria, Verified 06/29/25 19:45 rash lithium Allergy Unknown Rash Verified 06/29/25 19:45 Review of Systems Constitutional: Constitutional: Denies body ache(s), Denies chills, Denies fever(s) and Denies headache(s) Eyes: Eyes: Denies blurry vision ENT: Denies dizziness and Denies headache(s) Cardiovascular: Cardiovascular: Denies dyspnea and Denies dyspnea on exertion Respiratory: Respiratory: Reports cough, Denies dyspnea and Denies dyspnea on exertion Gastrointestinal: Gastrointestinal: Denies abdominal pain, Denies nausea and Denies vomiting Musculoskeletal: Musculoskeletal: Denies back pain Integumentary/Breasts: Skin/Breast: Denies rash Neurologic: Denies dizziness and Denies headache(s) Psychiatric: Psychiatric: Reports anxiety, Reports depression, Reports auditory hallucinations, Reports visual hallucinations and Reports suicidal ideation PMFSH Past Medical History Medical History Suicidal ideation Asthma Suicidal ideation MDD (major depressive disorder), recurrent episode, severe Chest pain Acute anxiety COVID-19 Full body hives Major depression Dizziness Suicide attempt UTI (urinary tract infection) Acetaminophen overdose COVID History of attempted suicide History of non-suicidal self-harm Hypomagnesemia Suicide attempt Suicide attempt by acetaminophen overdose Acetaminophen overdose Depression Diabetes type 2, controlled Borderline personality disorder PTSD (post-traumatic stress disorder) Overdose GERD (gastroesophageal reflux disease) Mood disorder Hyperlipidemia Bronchitis Social History Social History Household Members: Other Household Members Other:: [facility] members Housing: Other Housing Other:: Group Do you presently have visiting nurse or other home services: Yes ([facility] staff manage meds) Unable to assess alcohol history related to: Unknown Alcohol intake: never Comment: sitter in room Patient Tobacco Use Status: Current everyday Tobacco user Tobacco use type: Cigarette Cigarette Packs Per Day: 1 Cigarettes Per Day: 20.0 Years Smoked: 23 e-Cigarette/Vaping Use: Never Used Second Hand Smoke Exposure: No Substance Use Type: Caffiene Advance Directives: No Advance Directives Information Provided: No Patient : No service: No Current occupational status: unemployed and disabled Sexual orientation: Unable to collect Physical Exam ED Vital Signs: Vital Signs - 24 hr 06/29/25 19:34 06/29/25 22:08 06/29/25 22:56 Temperature 98.1 F Pulse Rate 113 H 104 H 108 H Respiratory Rate 19 16 19 Blood Pressure 119/61 122/74 Pulse Oximetry 95 94 Oxygen Delivery Method Room Air Room Air 06/30/25 00:34 06/30/25 06:33 Temperature 98.6 F Pulse Rate 109 H 106 H Respiratory Rate 18 17 Blood Pressure 151/90 H 127/79 Pulse Oximetry 95 96 Oxygen Delivery Method Room Air Room Air BMI result Body Mass Index 42.6 Const General: healthy appearing, comfortable, no acute distress, alert and awake Nutritional Appearance: well nourished Orientation/consciousness: patient oriented x3 HENMT Head: Yes normocephalic and Yes atraumatic Eyes Eyelids: Yes eyelids normal Conjunctivae: conjunctivae normal Sclerae: sclerae normal Corneas: corneas normal Pupils: Equal, round and reactive pupils present EOM: EOMs intact bilaterally Neck Neck: Yes full ROM Resp Effort & Inspection: normal respiratory effort, able to speak in complete sentences, no audible wheezes and not labored Auscultation: clear to auscultation bilaterally Cardio Rate: regular rate Rhythm: regular rhythm GI Inspection: No distended Palpation (GI): Soft to palpation, not firm, nontender, no guarding and not rigid Skin General skin exam: elasticity normal Neuro General: patient oriented x3 Cranial nerves: Yes Equal, round and reactive pupils present and Yes Bilaterally intact EOM present Cognition (Neuro): normal cognition Extrem Other: Moving all extremities well without any obvious deformities Course Reevaluation(s) Reevaluation #1: Patient is seen with the care team and no disposition has been reached as of yet. She will be a follow up in the morning. Physician observation has started Time: 23:54 Reevaluation #2: Time: 07:01 Date: 06/30/25 Provider: Lidia Hernandez, DO Patient in physician observation for psychiatric evaluation.? No acute events reported overnight. No current complaints. VS stable.? pending CARE team evaluation. Will continue to monitor. Reevaluation #3: Time: 08:04 Date: 06/30/25 Provider: Lidia Hernandez DO Physician observation ended at 804am. Patient has been cleared for discharge by the CARE team. Will follow up as an outpatient. Medications Administered Generic Name Dose Route Start Last Admin Trade Name Freq PRN Reason Stop Dose Admin Haloperidol 15 mg 06/30/25 00:15 06/30/25 00:35 Haloperidol 5 Mg Tablet PO 15 mg BEDTIME YULY Administration Nicotine 21 mg 06/30/25 00:12 06/30/25 00:34 Nicotine 21 Mg Patch.[id number] TRANSDERMA 21 mg DAILY PRN Administration smoking cessation Prazosin HCl 4 mg 06/30/25 00:15 06/30/25 00:35 Prazosin Hcl 1 Mg Capsule PO 4 mg BEDTIME YULY Administration Protocol Trazodone HCl 50 mg 06/30/25 00:12 06/30/25 00:35 Trazodone Hcl 50 Mg Tablet PO 50 mg BEDTIME MRX1 PRN Administration Insomnia Discontinued Medications Generic Name Dose Route Start Last Admin Trade Name Freq PRN Reason Stop Dose Admin Albuterol Sulfate 4 puff 06/29/25 21:32 06/29/25 22:07 Albuterol Sulfate 90 Mcg 8 Gm Inhaler INHALE 06/29/25 21:33 4 puff ONCE ONE Administration Clozapine 200 mg 06/30/25 00:22 06/30/25 00:35 Clozapine 100 Mg Tablet PO 06/30/25 00:23 200 mg ONCE ONE Administration Medical Decision Making Medical Decision Making [facility] Narrative: 49-year-old female with past medical history as above in his well known to this emergency department presents for evaluation of depression and hallucinations. She is quite well appearing. She seems her mental baseline to me. Her vital signs are stable, labs are unchanged from baseline. She is medically cleared for care team consult Differential Diagnosis Differential Diagnoses: The differential diagnosis associated with the presentation includes Depression Borderline personality disorder PTSD Suicidal ideation Admission/Observation Consideration of admission/observation: Escalation of care including admission/observation considered Lab Data [facility] Lab Attestation statement: I reviewed the patient's lab results. No leukocytosis or significant anemia. Normal platelet count. No significant electrolyte abnormalities warranting dimension. The patient is a known diabetic with a glucose of 118. No evidence of DKA. She has a chronic elevation of the ALT and AST. 06/29/25 20:30 06/29/25 20:30 Labs: Lab Results 09/15/25 09/15/25 Range/Units 20:26 20:30 WBC 7.9 (4.8-10.8) X10*3/uL RBC 4.00 L (4.20-5.50) X10*6/uL Hgb 12.5 (12.0-16.0) g/dl Hct 36.6 L (37.0-47.0) % MCV 91.5 (80.0-98.0) fL MCH 31.3 (27.0-33.0) pg MCHC 34.2 (31.0-35.0) g/dl RDW 12.8 (11.0-16.0) % Plt Count 290 (160-400) X10*3/uL MPV 9.0 L (9.4-12.3) fL Immature Gran % (Auto) 0.9 H (0.0-0.4) % Neut % (Auto) 65.6 (45-73) % Lymph % (Auto) 21.7 (20-40) % [place] % (Auto) 7.6 (2-11) % Eos % (Auto) 3.7 (0-4) % Baso % (Auto) 0.5 (0-2) % Lymph # (Auto) 1.7 (1.2-4.9) X10*3/uL [place] # (Auto) 0.6 (0.1-1.2) X10*3/uL Eos # (Auto) 0.3 (0.0-0.4) X10*3/uL Baso # (Auto) 0.0 (0.0-0.2) X10*3/uL Abs Immat Gran (auto) 0.07 H (0.00-0.03) X10*3/uL Absolute Neuts (auto) 5.2 (2.0-8.3) x10*3/uL Absolute Nucleated RBC 0.000 (0.0-0.012) X10*3/uL Nucleated RBC % (auto) 0.0 (0.0-0.2) /100WBC Sodium 142 (135-145) mmol/L Potassium 3.7 (3.3-5.1) mmol/L Chloride 106 (96-108) mmol/L Carbon Dioxide 24 (22-29) mmol/L Anion Gap 16 (12-20) BUN 10 (9-16) mg/dL Creatinine 0.68 (0.5-1.4) mg/dL Estim Creat Clear Calc 125.7 Estimated GFR > 60 Random Glucose 118 H (60-115) mg/dL Calcium 9.1 (8.4-10.2) mg/dL Total Bilirubin 0.2 (0.0-1.0) mg/dL AST 25 (5-31) U/L ALT 34 H (0-31) U/L Alkaline Phosphatase 163 H (39-117) U/L Total Protein 7.1 (6.5-8.0) g/dL Albumin 4.5 (3.5-5.0) g/dL Urine Color Yellow Urine Appearance Clear Urine pH 6.0 (5.0-9.0) Ur Specific Stella <= 1.005 (1.005-1.025) Urine Protein Negative (Neg-Trace) mg/dL Urine Glucose (UA) Negative (Negative) mg/dL Urine Ketones Negative (Negative) mg/dL Urine Blood Large (3+) H (Negative) Urine Nitrite Negative (Negative) Ur Leukocyte Esterase Negative (Negative) Urine RBC >20 H (0-2) /HPF Urine WBC 0-5 (0-5) /HPF Ur Squamous Epith Cells 0-2 (0-2) /HPF Urine Bacteria None Seen (None Seen) Hyaline Casts 0-2 (0-2) /LPF Salicylates < 5.0 L (15-30) mg/dL Urine Opiates Screen Not Detected (Not Detect) Ur Buprenorphine Scrn Not Detected (Not Detect) ng/mL Ur Oxycodone Screen Not Detected (Not Detect) ng/mL Urine Methadone Screen Not Detected (Not Detect) ng/mL Urine Fentanyl Screen Not Detected (Not Detect) Acetaminophen < 3 (<30) mcg/mL Ur Barbiturates Screen Not Detected (Not Detect) Ur Phencyclidine Scrn Not Detected (Not Detect) Ur Amphetamines Screen Not Detected (Not Detect) U Benzodiazepines Scrn Not Detected (Not Detect) Urine Cocaine Screen Not Detected (Not Detect) U Marijuana (THC) Screen Not Detected (Not Detect) Ethyl Alcohol < 10 mg/dL Discharge Plan Discharge Clinical Impression: Auditory hallucination Patient Disposition: Home, Self-Care Instructions: Hallucinations (ED) Additional Instructions: You were seen in our Emergency Department today for treatment of a behavioral health issue. It is important after your visit that you follow up with either your behavioral health provider or a primary care doctor within 7 days.? If you have trouble finding a therapist you can reach out to [address] [phone] The National Suicide and Crisis Lifeline can be reached 7 days a week 24 hours a day.? Call 988 to speak with someone.? Return for any worsening symptoms or concerns such as thoughts of self harm or harm to others. Please call 911 if you feel your mental health is worsening.? Prescriptions: No Action glycopyrrolate 1 mg tablet 1 mg PO BID atorvastatin 10 mg tablet 10 mg PO DAILY lorazepam 0.5 mg tablet 0.5 mg PO BID PRN (Reason: Anxiety) Rx Instructions: Take 1 tablet at 9am and 1 tablet at 4pm ferrous sulfate 325 mg (65 mg iron) tablet 325 mg PO BID montelukast 10 mg tablet 10 mg PO DAILY mirtazapine 15 mg tablet 15 mg PO BEDTIME ibuprofen 600 mg tablet 600 mg PO Q6H PRN (Reason: Mild Pain (Scale Score 1-4)) Trelegy Ellipta 200-62.5-25 mcg blister with device 1 ea inhalation DAILY fluoxetine 40 mg Capsule 80 mg PO DAILY famotidine 20 mg Tablet 20 mg PO TIDWM ascorbic acid (vitamin C) [Vitamin C] 500 mg Tablet 500 mg PO BID buspirone 10 mg Tablet 10 mg PO BID benztropine 1 mg Tablet 1 mg PO BID naproxen 500 mg Tablet 500 mg PO BID PRN (Reason: Pain (Scale Score 4-6)) temazepam 15 mg Capsule 15 mg PO BEDTIME PRN (Reason: Insomnia) pantoprazole 40 mg Tablet,Delayed Release (Dr/Ec) 40 mg PO BID acetaminophen 325 mg Tablet 650 mg PO Q6H PRN (Reason: Headache/Pain, Scale 1-10) Qty: 0 0RF haloperidol 5 mg Tablet 5 mg PO BID@0900,1500 Qty: 60 0RF trazodone 50 mg Tablet 50 mg PO BEDTIME MRX1 PRN (Reason: Insomnia) Qty: 60 0RF nicotine 21 mg/24 hr Patch 24 Hour 21 mg transdermal DAILY PRN (Reason: smoking cessation) Qty: 30 0RF clozapine 100 mg tablet 200 mg PO BEDTIME albuterol sulfate 90 mcg/actuation HFA aerosol inhaler 2 puff inhalation Q6H PRN (Reason: Wheezing) prazosin 2 mg capsule 4 mg PO BEDTIME metformin 500 mg tablet 500 mg PO BID amlodipine 2.5 mg Tablet 7.5 mg PO DAILY 30 Days Qty: 90 0RF Protocol: Hold for SBP< HOLD for SBP < : 90 nystatin 100,000 unit/gram Cream 1 appl topical BID 30 Days Qty: 30 0RF Protocol: Apply to: Apply to: affected area hydrochlorothiazide 12.5 mg Tablet 12.5 mg PO DAILY 30 Days Qty: 30 0RF Protocol: Hold for SBP< HOLD for SBP < : 90 haloperidol 5 mg Tablet 15 mg PO BEDTIME 30 Days Qty: 90 0RF Interventions: [place]-Suicide Risk Severity Scale Last Done: 06/30/25 00:42 Print Language: Maori
[2025-06-29 22:56] VITALS: BP 122/74; PULSE 108; RESP 19; O2SAT 94
[2025-06-30 00:34] VITALS: BP 151/90; PULSE 109; RESP 18; O2SAT 95
[2025-06-30] MEDS: Nicotine 21 MG PATCH.TD24 TRANSDERMA (00:34)
[2025-06-30 06:33] VITALS: BP 127/79; PULSE 106; RESP 17; TEMP 37; O2SAT 96
--- NOTE | 2025-06-30 07:00 | PC.NURSE ---
Assumed care, report received. Pt is currently sleeping, safety maintained.
--- NOTE | 2025-06-30 08:05 | MHC.CARE ---
Pt does not meet the criteria for a higher level of care and will D/C to her [facility]. ED provider in agreement.
[2025-06-30 08:09] VITALS: BP 127/79; PULSE 106; RESP 17; TEMP 37; O2SAT 96
== END 2025-06-30 08:19 | disposition home or self-care (01) ==
PROVIDERS: Emergency Provider Student in an Organized Health Care Education/Training Program; PCP Nurse Practitioner Family
DX: R44.0 Auditory hallucinations (principal); F43.10 Post-traumatic stress disorder, unspecified; R45.851 Suicidal ideations; Z79.899 Other long term (current) drug therapy; Z51.81 Encounter for therapeutic drug level monitoring
CPT/HCPCS: 36415; 80053; 80143; 80179; 80307; 81001; 85025; 94640; 99285; S9485

== ENCOUNTER 2025-07-01 19:15 | Emergency (ER) | payer MEDICARE, MEDICAID, SELFPAY ==
--- NOTE | 2025-07-01 19:27 | PC.NURSE ---
Pt changed over by security and tw. Belongings locked in shelf 5 by security.
[2025-07-01 19:31] VITALS: BP 121/75; BP 132/70; PULSE 102; PULSE 104; RESP 18; TEMP 37.1; O2SAT 95; O2SAT 98; BMI 42.7
[2025-07-01 20:03] LABS: MANUAL DIFF FLAG NO
[2025-07-01 20:05] LABS: Hematocrit 35.3 % (37.0-47.0); Hemoglobin 12.2 g/dl (12.0-16.0); Imm Gran Abs Auto 0.06 X10*3/uL (0.00-0.03); Imm Gran Pct Auto 0.6 % (0.0-0.4); Lymphocytes Absolute Auto 1.5 X10*3/uL (1.2-4.9); Mean Corpuscular HGB Conc 34.6 g/dl (31.0-35.0); Mean Corpuscular Hemoglobin 31.9 pg (27.0-33.0); Mean Corpuscular Volume 92.2 fL (80.0-98.0); NRBC Abs Auto 0.000 X10*3/uL (0.0-0.012); NRBC Pct Auto 0.0 /100WBC (0.0-0.2); Platelet Count 273 X10*3/uL (160-400); Red Blood Count 3.83 X10*6/uL (4.20-5.50); White Blood Count 9.8 X10*3/uL (4.8-10.8)
[2025-07-01 20:17] LABS: Cannabinoid Screen Urine Not Detected (Not Detect)
[2025-07-01 20:21] LABS: Alanine Aminotransferase 32 U/L (0-31); Albumin Level 4.3 g/dL (3.5-5.0); Alkaline Phosphatase 162 U/L (39-117); Anion Gap 12 (12-20); Aspartate Amino Transferase 21 U/L (5-31); Blood Urea Nitrogen 12 mg/dL (9-16); Calcium 8.9 mg/dL (8.4-10.2); Carbon Dioxide 26 mmol/L (22-29); Chloride 105 mmol/L (96-108); Creatinine Clr Calc Pharmacy 125.9; Estimated Glomerular Filt Rate > 60; Potassium 3.4 mmol/L (3.3-5.1); Sodium 140 mmol/L (135-145); Total Protein 6.8 g/dL (6.5-8.0)
--- NOTE | 2025-07-01 20:23 | ED.GENADULT ---
HPI - General Adult General Chief complaint: Psychiatric Symptoms Stated complaint: AH, SUPERFICIAL CUTS S/P SELF HARM Time Seen by Provider: 07/01/25 20:11 Source: patient and RN notes reviewed Mode of arrival: EMS Limitations: no limitations History of Present Illness ED Provider: Hilda HPI narrative: 49-year-old female with past medical history significant for PTSD, borderline personality disorder, chronic auditory and visual hallucinations, diabetes, asthma presents for evaluation of hallucinations. The patient was seen in his department on 06/27, 06/29 on 2 occasions and again today offer similar presentations. She feels as though she needs sick? go inpatient. ? She states that she woke up hearing voices all day telling her to kill herself and she plans to cut her arms. She denies any somatic complaints. No other complaints or concerns at this time Related Data Home Medications ?Medication ?Instructions ?Recorded ?Confirmed albuterol sulfate 90 mcg/actuation 2 puff inhalation Q6H PRN Wheezing 06/24/24 06/30/25 aerosol inhaler clozapine 100 mg tablet 200 mg PO BEDTIME 06/24/24 06/29/25 prazosin 2 mg capsule 4 mg PO BEDTIME 06/24/24 06/30/25 metformin 500 mg tablet 500 mg PO BID 07/15/24 06/30/25 atorvastatin 10 mg tablet 10 mg PO DAILY 05/23/25 06/30/25 ferrous sulfate 325 mg (65 mg 325 mg PO BID 05/23/25 06/30/25 iron) tablet fluticasone fur. 200 mcg-umeclid 1 ea inhalation DAILY 05/23/25 06/29/25 62.5 mcg-vilant 25 mcg inhalat.powder (Trelegy Ellipta) glycopyrrolate 1 mg tablet 1 mg PO BID 05/23/25 06/30/25 ibuprofen 600 mg tablet 600 mg PO Q6H PRN Mild Pain (Scale 05/23/25 06/30/25 Score 1-4) lorazepam 0.5 mg tablet 0.5 mg PO BID PRN Anxiety 05/23/25 06/30/25 mirtazapine 15 mg tablet 15 mg PO BEDTIME 05/23/25 06/29/25 montelukast 10 mg tablet 10 mg PO DAILY 05/23/25 06/30/25 ascorbic acid (vitamin C) 500 mg 500 mg PO BID 06/18/25 06/30/25 tablet (Vitamin C) benztropine 1 mg tablet 1 mg PO BID 06/18/25 06/29/25 buspirone 10 mg tablet 10 mg PO BID 06/18/25 06/29/25 famotidine 20 mg tablet 20 mg PO TIDWM 06/18/25 06/30/25 fluoxetine 40 mg capsule 80 mg PO DAILY 06/18/25 06/29/25 naproxen 500 mg tablet 500 mg PO BID PRN Pain (Scale 06/18/25 06/29/25 Score 4-6) pantoprazole 40 mg tablet,delayed 40 mg PO BID 06/18/25 06/29/25 release temazepam 15 mg capsule 15 mg PO BEDTIME PRN Insomnia 06/18/25 06/29/25 Previous Rx's ?Medication ?Instructions ?Recorded amlodipine 2.5 mg tablet 7.5 mg PO DAILY 30 days #90 tabs 06/01/25 haloperidol 5 mg tablet 15 mg (3 x 5 mg) PO BEDTIME 30 06/01/25 days #90 tabs hydrochlorothiazide 12.5 mg tablet 12.5 mg PO DAILY 30 days #30 tabs 06/01/25 nystatin 100,000 unit/gram topical 1 appl topical BID 30 days #30 06/01/25 cream grams acetaminophen 325 mg tablet 650 mg (2 x 325 mg) PO Q6H PRN 06/23/25 Headache/Pain, Scale 1-10 #0 tabs haloperidol 5 mg tablet 5 mg PO BID@0900,1500 #60 tabs 06/23/25 nicotine 21 mg/24 hr daily 21 mg transdermal DAILY PRN 06/23/25 transdermal patch smoking cessation #30 ea trazodone 50 mg tablet 50 mg PO BEDTIME MRX1 PRN Insomnia 06/23/25 #60 tabs Allergies Allergy/AdvReac Type Severity Reaction Status Date / Time azithromycin (AZITHROMYCIN) Allergy Severe Rash Verified 07/01/25 19:41 Fish Containing Products Allergy Severe Anaphylaxis Verified 07/01/25 19:41 codeine (Codeine) Allergy Intermediate Rash Verified 07/01/25 19:41 Penicillins Allergy Intermediate Rash Verified 07/01/25 19:41 prednisone (Prednisone) Allergy Intermediate Rash Verified 07/01/25 19:41 Sulfa (Sulfonamide Allergy Intermediate Rash Verified 07/01/25 19:41 Antibiotics) (Sulfa (Sulfonamides)) ziprasidone (From Geodon) Allergy Intermediate dysuria, Verified 07/01/25 19:41 rash lithium Allergy Unknown Rash Verified 07/01/25 19:41 Review of Systems Constitutional: Constitutional: Denies body ache(s), Denies chills, Denies fever(s) and Denies headache(s) Eyes: Eyes: Denies blurry vision ENT: Denies dizziness and Denies headache(s) Cardiovascular: Cardiovascular: Denies chest pain and Denies dyspnea on exertion Respiratory: Respiratory: Denies cough and Denies dyspnea on exertion Gastrointestinal: Gastrointestinal: Denies abdominal pain, Denies nausea and Denies vomiting Musculoskeletal: Musculoskeletal: Denies back pain Neurologic: Denies dizziness and Denies headache(s) Psychiatric: Psychiatric: Reports depression, Reports auditory hallucinations, Reports visual hallucinations and Reports suicidal ideation PMFSH Past Medical History Medical History Suicidal ideation Asthma Suicidal ideation MDD (major depressive disorder), recurrent episode, severe Chest pain Acute anxiety COVID-19 Full body hives Major depression Dizziness Suicide attempt UTI (urinary tract infection) Acetaminophen overdose COVID History of attempted suicide History of non-suicidal self-harm Hypomagnesemia Suicide attempt Suicide attempt by acetaminophen overdose Acetaminophen overdose Depression Diabetes type 2, controlled Borderline personality disorder PTSD (post-traumatic stress disorder) Overdose GERD (gastroesophageal reflux disease) Mood disorder Hyperlipidemia Bronchitis Social History Social History Household Members: Other Household Members Other:: prison members Housing: Other Housing Other:: Group Do you presently have visiting nurse or other home services: Yes (prison staff manage meds) Unable to assess alcohol history related to: Unknown Alcohol intake: never Comment: sitter in room Patient Tobacco Use Status: Current everyday Tobacco user Tobacco use type: Cigarette Cigarette Packs Per Day: 1 Cigarettes Per Day: 20.0 Years Smoked: 23 Smoked in Last 30 Days: Yes e-Cigarette/Vaping Use: Never Used Second Hand Smoke Exposure: No Use of substances other than those prescribed or required for medical reasons: No Substance Use Type: Caffiene Advance Directives: No Advance Directives Information Provided: No Patient : No service: No Current occupational status: unemployed and disabled Sexual orientation: Unable to collect Physical Exam ED Vital Signs: Vital Signs - 24 hr 07/01/25 19:31 07/01/25 21:25 07/01/25 23:00 Temperature 98.8 F 98.5 F 97.0 F Pulse Rate 104 H 103 H 107 H Respiratory Rate 18 18 18 Blood Pressure 121/75 148/89 H 135/66 Pulse Oximetry 95 95 94 Oxygen Delivery Method Room Air Room Air Room Air 07/02/25 06:19 07/02/25 12:08 Temperature 98.8 F 96.8 F Pulse Rate 79 97 Respiratory Rate 16 17 Blood Pressure 104/63 120/74 Pulse Oximetry 95 95 Oxygen Delivery Method Room Air Room Air BMI result Body Mass Index 42.7 Const General: healthy appearing, comfortable, no acute distress, alert and awake Nutritional Appearance: well nourished Orientation/consciousness: patient oriented x3 HENMT Head: Yes normocephalic and Yes atraumatic Eyes Eyelids: Yes eyelids normal Conjunctivae: conjunctivae normal Sclerae: sclerae normal Corneas: corneas normal Pupils: Equal, round and reactive pupils present EOM: EOMs intact bilaterally Neck Neck: Yes full ROM Resp Effort & Inspection: normal respiratory effort, able to speak in complete sentences and not labored Cardio Rate: regular rate Rhythm: regular rhythm Skin General skin exam: elasticity normal Neuro General: patient oriented x3 Cranial nerves: Yes Equal, round and reactive pupils present and Yes Bilaterally intact EOM present Cognition (Neuro): normal cognition Extrem Other: Moving all extremities well without any obvious deformities Course Reevaluation(s) Reevaluation #1: The patient is medically cleared for care team evaluation Time: 20:30 Reevaluation #2: Patient is seen with the care team and will be a follow up for the morning re-evaluate and disposition. Physician observation starts now. Time: 22:56 Reevaluation #3: Time: 09:41 Date: 07/02/25 Provider: Lidia Hernandez DO Patient in physician observation for psychiatric evaluation.? No acute events reported overnight. No current complaints. VS stable.? Pending CARE team evaluation. Will continue to monitor. Additional Reevaluation(s): Time: 12:43 Date: 07/02/25 Provider: Lidia Hernandez DO Physician observation ended at 1244pm Patient has been cleared for discharge by the CARE team. Will follow up as an outpatient. Medications Administered Discontinued Medications Generic Name Dose Route Start Last Admin Trade Name Elmer PRN Reason Stop Dose Admin Ibuprofen 600 mg 07/01/25 23:28 07/01/25 23:37 Ibuprofen 600 Mg Tablet PO 07/01/25 23:29 600 mg ONCE ONE Administration Lorazepam 1 mg 07/01/25 22:06 07/01/25 22:10 Lorazepam 1 Mg Tablet PO 07/01/25 22:07 1 mg ONCE ONE Administration Nicotine 21 mg 07/01/25 20:16 07/01/25 20:26 Nicotine 21 Mg Patch.Td24 TRANSDERMA 07/01/25 20:17 21 mg ONCE ONE Administration Medical Decision Making Medical Decision Making [facility] Narrative: 49-year-old female with a past medical history as above presents for evaluation of auditory and visual hallucinations as well as depression with suicidal ideation. The patient is well known to this department for similar presentation in fact this is his it in the last week for the same presentation. Plan for medical clearance and care team consult Differential Diagnosis Differential Diagnoses: The differential diagnosis associated with the presentation includes Depression Bipolar disorder Borderline personality disorder Suicidal ideation Hallucinations Psychosis Lab Data [facility] Lab Attestation statement: I reviewed the patient's lab results. No leukocytosis or significant anemia. Normal platelet count. No significant left shift. Random glucose is elevated to 218, slight elevation of ALT and alk phos which is baseline for her. No other electrolyte abnormalities. 07/01/25 19:59 07/01/25 19:59 Labs: Lab Results 07/01/25 Range/Units 19:59 WBC 9.8 (4.8-10.8) X10*3/uL RBC 3.83 L (4.20-5.50) X10*6/uL Hgb 12.2 (12.0-16.0) g/dl Hct 35.3 L (37.0-47.0) % MCV 92.2 (80.0-98.0) fL MCH 31.9 (27.0-33.0) pg MCHC 34.6 (31.0-35.0) g/dl RDW 13.1 (11.0-16.0) % Plt Count 273 (160-400) X10*3/uL MPV 8.9 L (9.4-12.3) fL Immature Gran % (Auto) 0.6 H (0.0-0.4) % Neut % (Auto) 72.9 (45-73) % Lymph % (Auto) 15.2 L (20-40) % [place] % (Auto) 7.5 (2-11) % Eos % (Auto) 3.4 (0-4) % Baso % (Auto) 0.4 (0-2) % Lymph # (Auto) 1.5 (1.2-4.9) X10*3/uL [place] # (Auto) 0.7 (0.1-1.2) X10*3/uL Eos # (Auto) 0.3 (0.0-0.4) X10*3/uL Baso # (Auto) 0.0 (0.0-0.2) X10*3/uL Abs Immat Gran (auto) 0.06 H (0.00-0.03) X10*3/uL Absolute Neuts (auto) 7.2 (2.0-8.3) x10*3/uL Absolute Nucleated RBC 0.000 (0.0-0.012) X10*3/uL Nucleated RBC % (auto) 0.0 (0.0-0.2) /100WBC Sodium 140 (135-145) mmol/L Potassium 3.4 (3.3-5.1) mmol/L Chloride 105 (96-108) mmol/L Carbon Dioxide 26 (22-29) mmol/L Anion Gap 12 (12-20) BUN 12 (9-16) mg/dL Creatinine 0.68 (0.5-1.4) mg/dL Estim Creat Clear Calc 125.9 Estimated GFR > 60 Random Glucose 218 H (60-115) mg/dL Calcium 8.9 (8.4-10.2) mg/dL Total Bilirubin 0.2 (0.0-1.0) mg/dL AST 21 (5-31) U/L ALT 32 H (0-31) U/L Alkaline Phosphatase 162 H (39-117) U/L Total Protein 6.8 (6.5-8.0) g/dL Albumin 4.3 (3.5-5.0) g/dL Beta HCG, Quant < 2 mIU/mL Urine Opiates Screen Not Detected (Not Detect) Ur Buprenorphine Scrn Not Detected (Not Detect) ng/mL Ur Oxycodone Screen Not Detected (Not Detect) ng/mL Urine Methadone Screen Not Detected (Not Detect) ng/mL Urine Fentanyl Screen Not Detected (Not Detect) Ur Barbiturates Screen Not Detected (Not Detect) Ur Phencyclidine Scrn Not Detected (Not Detect) Ur Amphetamines Screen Not Detected (Not Detect) U Benzodiazepines Scrn Not Detected (Not Detect) Urine Cocaine Screen Not Detected (Not Detect) U Marijuana (THC) Screen Not Detected (Not Detect) Ethyl Alcohol < 10 mg/dL Discharge Plan Discharge Clinical Impression: Depression, Hallucinations Patient Disposition: Home, Self-Care Instructions: Depression (ED), Hallucinations (ED) Additional Instructions: You were seen in our Emergency Department today for treatment of a behavioral health issue. It is important after your visit that you follow up with either your behavioral health provider or a primary care doctor within 7 days.? If you have trouble finding a therapist you can reach out to [address] [phone] [facility] can be reached 7 days a week 24 hours a day.? Call [phone] to speak with someone.? Return for any worsening symptoms or concerns such as thoughts of self harm or harm to others. Please call 911 if you feel your mental health is worsening.? Prescriptions: No Action glycopyrrolate 1 mg tablet 1 mg PO BID atorvastatin 10 mg tablet 10 mg PO DAILY lorazepam 0.5 mg tablet 0.5 mg PO BID PRN (Reason: Anxiety) Rx Instructions: Take 1 tablet at 9am and 1 tablet at 4pm ferrous sulfate 325 mg (65 mg iron) tablet 325 mg PO BID montelukast 10 mg tablet 10 mg PO DAILY mirtazapine 15 mg tablet 15 mg PO BEDTIME ibuprofen 600 mg tablet 600 mg PO Q6H PRN (Reason: Mild Pain (Scale Score 1-4)) Trelegy Ellipta 200-62.5-25 mcg blister with device 1 ea inhalation DAILY fluoxetine 40 mg Capsule 80 mg PO DAILY famotidine 20 mg Tablet 20 mg PO TIDWM ascorbic acid (vitamin C) [Vitamin C] 500 mg Tablet 500 mg PO BID buspirone 10 mg Tablet 10 mg PO BID benztropine 1 mg Tablet 1 mg PO BID naproxen 500 mg Tablet 500 mg PO BID PRN (Reason: Pain (Scale Score 4-6)) temazepam 15 mg Capsule 15 mg PO BEDTIME PRN (Reason: Insomnia) pantoprazole 40 mg Tablet,Delayed Release (Dr/Ec) 40 mg PO BID acetaminophen 325 mg Tablet 650 mg PO Q6H PRN (Reason: Headache/Pain, Scale 1-10) Qty: 0 0RF haloperidol 5 mg Tablet 5 mg PO BID@0900,1500 Qty: 60 0RF trazodone 50 mg Tablet 50 mg PO BEDTIME MRX1 PRN (Reason: Insomnia) Qty: 60 0RF nicotine 21 mg/24 hr Patch 24 Hour 21 mg transdermal DAILY PRN (Reason: smoking cessation) Qty: 30 0RF clozapine 100 mg tablet 200 mg PO BEDTIME albuterol sulfate 90 mcg/actuation HFA aerosol inhaler 2 puff inhalation Q6H PRN (Reason: Wheezing) prazosin 2 mg capsule 4 mg PO BEDTIME metformin 500 mg tablet 500 mg PO BID amlodipine 2.5 mg Tablet 7.5 mg PO DAILY 30 Days Qty: 90 0RF Protocol: Hold for SBP< HOLD for SBP < : 90 nystatin 100,000 unit/gram Cream 1 appl topical BID 30 Days Qty: 30 0RF Protocol: Apply to: Apply to: affected area hydrochlorothiazide 12.5 mg Tablet 12.5 mg PO DAILY 30 Days Qty: 30 0RF Protocol: Hold for SBP< HOLD for SBP < : 90 haloperidol 5 mg Tablet 15 mg PO BEDTIME 30 Days Qty: 90 0RF Interventions: [place]-Suicide Risk Severity Scale Last Done: 07/01/25 20:54 Print Language: Romansh
[2025-07-01] MEDS: Nicotine 21 MG PATCH.TD24 TRANSDERMA (20:26)
[2025-07-01 21:25] VITALS: BP 148/89; PULSE 103; RESP 18; TEMP 36.9; O2SAT 95
[2025-07-01 23:00] VITALS: BP 135/66; PULSE 107; RESP 18; TEMP 36.1; O2SAT 94
[2025-07-02 06:19] VITALS: BP 104/63; PULSE 79; RESP 16; TEMP 37.1; O2SAT 95
[2025-07-02 12:08] VITALS: BP 120/74; PULSE 97; RESP 17; TEMP 36; O2SAT 95
[2025-07-02 12:53] VITALS: BP 120/74; PULSE 97; RESP 17; TEMP 36; O2SAT 95
== END 2025-07-02 12:53 | disposition home or self-care (01) ==
PROVIDERS: Physician Assistant; Emergency Provider Student in an Organized Health Care Education/Training Program; PCP Nurse Practitioner Family
DX: F33.1 Major depressive disorder, recurrent, moderate (principal); R45.851 Suicidal ideations; E11.9 Type 2 diabetes mellitus without complications; F17.210 Nicotine dependence, cigarettes, uncomplicated; R10.2 Pelvic and perineal pain; Z51.81 Encounter for therapeutic drug level monitoring; Z79.899 Other long term (current) drug therapy; Z79.84 Long term (current) use of oral hypoglycemic drugs
CPT/HCPCS: 36415; 80053; 80307; 84702; 85025; 99285; S9485

== ENCOUNTER 2025-07-15 19:52 | Emergency (ER) | payer MEDICARE, MEDICAID, SELFPAY ==
--- OUTSIDE RECORDS SUMMARY | 2025-07-15 02:20 | XMS_ITS | Encounter Summary ---
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 screening result should not be used for non-medical purposes. *ALTERNATE METHOD CONFIRMATION DONE UPON REQUEST ONLY* Urine Urine specimen obtained by clean catch procedure / Unknown Non-blood Collection / Unknown 07/15/2025 5:02 AM EDT 07/15/2025 6:10 AM EDT Julian Clarke MD LAB URINE ORDERABLES Final R esult [facility] [address] [place] [address], [place] [phone] * Phencyclidine, urine (07/15/2025 5:02 AM EDT) PCP Scrn, Ur Negative Negative LAB CHEMISTRY METHOD 07/15/2025 6:46 AM EDT [facility] Comment: Assay cutoff 25 ng/mL Semi-quantitative assay for screening purposes only. Unconfirmed screening result should not be used for non-medical purposes. *ALTERNATE METHOD CONFIRMATION DONE UPON REQUEST ONLY* Urine Urine specimen obtained by clean catch procedure / Unknown Non-blood Collection / Unknown 07/15/2025 5:02 AM EDT 07/15/2025 6:10 AM EDT Julian Clarke MD LAB URINE ORDERABLES Final R esult [facility] [address] [place] [address], [place] [phone] * Buprenorphine screen, urine (07/15/2025 5:02 AM EDT) [facility] Buprenorphine Screen Urine Negative Negative LAB CHEMISTRY METHOD 07/15/2025 6:44 AM EDT [facility] Urine Urine specimen obtained by clean catch procedure / Unknown Non-blood Collection / Unknown 07/15/2025 5:02 AM EDT 07/15/2025 6:10 AM EDT Narrative [facility] - 07/15/2025 6:44 AM EDT Assay cutoff 5 ng/mL Semi-quantitative assay for screening purposes only. Unconfirmed screening result should not be used for non-medical purposes. *ALTERNATE METHOD CONFIRMATION DONE UPON REQUEST ONLY* Julian Clarke MD LAB URINE ORDERABLES Final R esult [facility] [address] [place] [address], [place] [phone] * Drug abuse screen 8a panel, urine (07/15/2025 5:02 AM EDT) [facility] Amphetamine Screen, Ur Negative Negative LAB CHEMISTRY METHOD 07/15/2025 6:44 AM EDT [facility] Comment:Certain OTC medicati ons containing ephedrine, phenylephrine, pseudoephedrine and phenylpropanolamine can cause false positive results. Barbiturate Screen, Ur Negative Negative LAB CHEMISTRY METHOD 07/15/2025 6:44 AM EDT [facility] Benzodiazepine Screen, Ur Negative Negative LAB CHEMISTRY METHOD 07/15/2025 6:44 AM EDT [facility] Cocaine Screen, Ur Negative Negative LAB CHEMISTRY METHOD 07/15/2025 6:44 AM EDT [facility] Opiate Screen, Ur Negative Negative LAB CHEMISTRY METHOD 07/15/2025 6:44 AM EDT [facility] Cannabinoid (THC) Screen, Ur Negative Negative LAB CHEMISTRY METHOD 07/15/2025 6:44 AM EDT [facility] Comment:Specimens from patie nts taking pantoprazole sodium (Protonix) have been shown to produce false positive results. Oxycodone Screen, Ur Negative Negative LAB CHEMISTRY METHOD 07/15/2025 6:44 AM EDT [facility] Fentanyl, Ur Negative Negative LAB CHEMISTRY METHOD 07/15/2025 6:44 AM EDT [facility] Urine Urine specimen obtained by clean catch procedure / Unknown Non-blood Collection / Unknown 07/15/2025 5:02 AM EDT 07/15/2025 6:10 AM EDT Narrative [facility] - 07/15/2025 6:44 AM EDT Assay cutoffs: Amphetamines 1000 ng/mL Barbiturates 200 ng/mL Benzodiazepines 200 ng/mL Cocaine 300 ng/mL Fentanyl 1 ng/mL Opiates 300 ng/mL Oxycodone 100 ng/mL THC 50 ng/mL Semi-quantitative assay for screening purposes only. Unconfirmed screening result should not be used for non-medical purposes. *ALTERNATE METHOD CONFIRMATION DONE UPON REQUEST ONLY* Julian Clarke MD LAB URINE ORDERABLES Final R esult [facility] [address] [place] [address], * Salicylate level (07/15/2025 5:01 AM EDT) Salicylate Level 4.9 2.0 - 29.0 mg/dL LAB CHEMISTRY METHOD 07/15/2025 6:59 AM EDT [facility] Comment:Results verified by repeat testing Blood Venous blood specimen / Unknown Venipuncture / Unknown 07/15/2025 5:01 AM EDT 07/15/2025 6:10 AM EDT Julian Clarke MD LAB BLOOD ORDERABLES Final R esult Performing Organization Address [facility]/ZIP Co de Phone Number [facility] [address] [place] [address], [place] [phone] * (ABNORMAL) Acetaminophen level (07/15/2025 5:01 AM EDT) Acetaminophen Level <2.0(L) 10.0 - 30.0 mcg/mL LAB CHEMISTRY METHOD 07/15/2025 6:46 AM EDT [facility] Blood Venous blood specimen / Unknown Venipuncture / Unknown 07/15/2025 5:01 AM EDT 07/15/2025 6:10 AM EDT Julian Clarke MD LAB BLOOD ORDERABLES Final R esult Performing Organization Address [facility] de Phone Number [facility] [address] [place] [address], [place] [phone] * Ethanol (07/15/2025 5:01 AM EDT) Ethanol Level <3 0 - 10 mg/dL LAB CHEMISTRY METHOD 07/15/2025 6:38 AM EDT [facility] Blood Venous blood specimen / Unknown Venipuncture / Unknown 07/15/2025 5:01 AM EDT 07/15/2025 6:10 AM EDT us Julian Clarke MD LAB BLOOD ORDERABLES Final R esult Performing Organization Address City/[facility]/ZIP Co de Phone Number [facility] [address] [place] [address], [place] [phone] * Troponin I high sensitivity (07/15/2025 5:01 AM EDT) High Sensitivity Troponin I 4 <=54 ng/L LAB CHEMISTRY METHOD 07/15/2025 6:42 AM EDT [facility] Blood Venous blood specimen / Unknown Venipuncture / Unknown 07/15/2025 5:01 AM EDT 07/15/2025 6:10 AM EDT Narrative [facility] - 07/15/2025 6:42 AM EDT High levels of biotin in samples may falsely decrease hsTroponin values. Use caution when interpreting hsTroponin results in patients taking biotin who exhibit renal impairment (eGFR <60) or in patients taking more than 20 mg/day of biotin. us Julian Clarke MD LAB BLOOD ORDERABLES Final R esult [facility] [address] [place] [address], * XR Chest 2 Views (07/15/2025 3:26 AM EDT) Anatomical Region Laterality Modality Body Radiographic Renata ging 07/15/2025 9:37 AM EDT Impressions 07/15/2025 9:37 AM EDT Impression: Trace bilateral pleural effusions. Telerad JOSE JUAN ([id number]) -------- FINAL REPORT -------- Dictated By: Eloina Mayo Dictated Date: 07/15/2025 09:37 ET Assigned Physician: Eloina Mayo Reviewed and Electronically Signed By: Eloina Mayo Signed Date: 07/15/2025 09:37 ET Workstation ID: [id number] Transcribed By: Self Edit Transcribed Date: 07/15/2025 09:37 ET Narrative 07/15/2025 9:37 AM EDT History: Chest pain. Comparison: 11/30/24 Findings: PA and lateral views. The cardiomediastinal silhouette, hilar contours and pulmonary vascularity are within normal limits. The costophrenic angles are blunted posteriorly, new, consistent with trace pleural effusions. The lungs are otherwise clear. Procedure Note Eloina Mayo MD - 07/15/2025 History: Chest pain. Comparison: 11/30/24 Findings: PA and lateral views. The cardiomediastinal silhouette, hilar contours andpulmonary vascularity are within normal limits. The costophrenic anglesare blunted posteriorly, new, consistent with trace pleural effusions. Thelungs are otherwise clear. IMPRESSION: Impression: Trace bilateral pleural effusions. Telerad JOSE JUAN ([id number]) -------- FINAL REPORT -------- Dictated By: Eloina Mayo Dictated Date: 07/15/2025 09:37 ET Assigned Physician: Eloina Mayo Reviewed and Electronically Signed By: Eloina Mayo Signed Date: 07/15/2025 09:37 ET Workstation ID: [id number] Transcribed By: Self Edit Transcribed Date: 07/15/2025 09:37 ET us Julian Clarke MD IMG XR PROCEDURES Final Resu lt * (ABNORMAL) CBC auto differential (07/15/2025 2:58 AM EDT) WBC 8.1 4.8 - 10.8 K/mcL LAB HEMETOLOGY METHOD 07/15/2025 3:14 AM EDT [facility] RBC 4.10 3.80 - 4.80 M/mcL LAB HEMETOLOGY METHOD 07/15/2025 3:14 AM EDT [facility] Hemoglobin 12.3 11.5 - 16.0 g/dL LAB HEMETOLOGY METHOD 07/15/2025 3:14 AM EDT [facility] Hematocrit 37.3 35.0 - 47.0 % LAB HEMETOLOGY METHOD 07/15/2025 3:14 AM EDT [facility] MCV 91.9 79.0 - 98.0 FL LAB HEMETOLOGY METHOD 07/15/2025 3:14 AM EDT [facility] MCH 30.3 27.0 - 32.0 pcg LAB HEMETOLOGY METHOD 07/15/2025 3:14 AM [facility] MCHC 33.0 32.0 - 37.0 g/dL LAB HEMETOLOGY METHOD 07/15/2025 3:14 AM [facility] RDW 12.4 11.0 - 15.0 % LAB HEMETOLOGY METHOD 07/15/2025 3:14 AM [facility] Platelets 295 130 - 400 K/mcL LAB HEMETOLOGY METHOD 07/15/2025 3:14 AM [facility] MPV 9.2 7.0 - 11.0 FL LAB HEMETOLOGY METHOD 07/15/2025 3:14 AM [facility] NRBC 0.0 <1.0 % LAB HEMETOLOGY METHOD 07/15/2025 3:14 AM [facility] NRBC Absolute 0.00 <0.10 K/mcL LAB HEMETOLOGY METHOD 07/15/2025 3:14 AM [facility] Neutrophils Relative 63.4 % LAB HEMETOLOGY METHOD 07/15/2025 3:14 AM [facility] Lymphocytes Relative 23.2 % LAB HEMETOLOGY METHOD 07/15/2025 3:14 AM [facility] Monocytes Relative 8.7 % LAB HEMETOLOGY METHOD 07/15/2025 3:14 AM [facility] Eosinophils Relative 3.1 % LAB HEMETOLOGY METHOD 07/15/2025 3:14 AM [facility] Basophils Relative 0.6 % LAB HEMETOLOGY METHOD 07/15/2025 3:14 AM [facility] Immature Granulocytes Relative 1.0 % LAB HEMETOLOGY METHOD 07/15/2025 3:14 AM [facility] Neutrophils Absolute 5.10 1.50 - 7.00 K/mcL LAB HEMETOLOGY METHOD 07/15/2025 3:14 AM EDT [facility] Lymphocytes Absolute 1.87 1.00 - 5.00 K/mcL LAB HEMETOLOGY METHOD 07/15/2025 3:14 AM EDT [facility] Monocytes Absolute 0.70 0.20 - 1.00 K/mcL LAB HEMETOLOGY METHOD 07/15/2025 3:14 AM EDT [facility] Eosinophils Absolute 0.25 0.00 - 0.50 K/[facility] LAB HEMETOLOGY METHOD 07/15/2025 3:14 AM EDT [facility] Basophils Absolute 0.05 0.00 - 0.20 K/[facility] LAB HEMETOLOGY METHOD 07/15/2025 3:14 AM EDT [facility] Immature Granulocytes Absolute 0.08(H) 0.00 - 0.03 K/[facility] LAB HEMETOLOGY METHOD 07/15/2025 3:14 AM EDT [facility] Blood Venous blood specimen / Unknown Venipuncture / Unknown 07/15/2025 2:58 AM EDT 07/15/2025 3:10 AM EDT Julian Clarke MD LAB BLOOD ORDERABLES Final R esult [facility]) [facility] [address] [place] [address], * B-type natriuretic peptide (07/15/2025 2:58 AM EDT) BNP 2 <=100 pcg/mL LAB CHEMISTRY METHOD 07/15/2025 3:56 AM EDT [facility] Blood Venous blood specimen / Unknown Venipuncture / Unknown 07/15/2025 2:58 AM EDT 07/15/2025 3:10 AM EDT Julian Clarke MD LAB BLOOD ORDERABLES Final R esult Performing Organization Address [facility]/ZIP Co de Phone Number [facility] [address] [place] [address], [place] [phone] * (ABNORMAL) Magnesium (07/15/2025 2:58 AM EDT) Pathologist [facility] Magnesium 1.4(L) 1.9 - 2.6 mg/dL LAB CHEMISTRY METHOD 07/15/2025 3:48 AM EDT [facility] Blood Venous blood specimen / Unknown Venipuncture / Unknown 07/15/2025 2:58 AM EDT 07/15/2025 3:09 AM EDT Julian Clarke MD LAB BLOOD ORDERABLES Final R esult Performing Organization Address [facility] Co de Phone Number [facility] [address] [place] [address], [place] [phone] * Lipase (07/15/2025 2:58 AM EDT) [facility] Lipase 23 13 - 75 unit/L LAB CHEMISTRY METHOD 07/15/2025 3:48 AM EDT [facility] Blood Venous blood specimen / Unknown Venipuncture / Unknown 07/15/2025 2:58 AM EDT 07/15/2025 3:09 AM EDT Julian Clarke MD LAB BLOOD ORDERABLES Final R esult Performing Organization Address [facility]/ZIP Co de Phone Number [facility] [address] [place] [address], [place] [phone] * (ABNORMAL) Comprehensive metabolic panel (07/15/2025 2:58 AM EDT) Pathologist [facility] Sodium 134 133 - 145 mmol/L LAB CHEMISTRY METHOD 07/15/2025 3:57 AM EDT [facility] Potassium 2.8(LL) 3.5 - 5.5 mmol/L LAB CHEMISTRY METHOD 07/15/2025 3:57 AM [facility] Chloride 100 96 - 110 mmol/L LAB CHEMISTRY METHOD 07/15/2025 3:57 AM [facility] CO2 25 21 - 32 mmol/L LAB CHEMISTRY METHOD 07/15/2025 3:57 AM [facility] Anion Gap 9 3 - 11 LAB CHEMISTRY METHOD 07/15/2025 3:57 AM [facility] Glucose 266(H) 70 - 100 mg/dL LAB CHEMISTRY METHOD 07/15/2025 3:57 AM [facility] BUN 11 5 - 25 mg/dL LAB CHEMISTRY METHOD 07/15/2025 3:57 AM [facility] Creatinine 0.87 0.50 - 1.10 mg/dL LAB CHEMISTRY METHOD 07/15/2025 3:57 AM [facility] eGFR 83 >=60 mL/min/1. 73m2 LAB CHEMISTRY METHOD 07/15/2025 3:57 AM [facility] Comment:Calculation based on the Chronic Kidney Disease Epidemiology Collaboration (CKD-EPI) equation refit without adjustment for race. BUN/Creatinine Ratio 12.6 LAB CHEMISTRY METHOD 07/15/2025 3:57 AM [facility] Calcium 8.7 8.5 - 10.5 mg/dL LAB CHEMISTRY METHOD 07/15/2025 3:57 AM [facility] AST (SGOT) 20 10 - 42 unit/L LAB CHEMISTRY METHOD 07/15/2025 3:57 AM [facility] ALT (SGPT) 27 10 - 60 unit/L LAB CHEMISTRY METHOD 07/15/2025 3:57 AM [facility] Alkaline Phosphatase 175(H) 42 - 121 unit/L LAB CHEMISTRY METHOD 07/15/2025 3:57 AM [facility] Total Protein 6.7 6.0 - 8.0 g/dL LAB CHEMISTRY METHOD 07/15/2025 3:57 AM EDT [facility] Albumin 3.6 3.2 - 5.0 g/dL LAB CHEMISTRY METHOD 07/15/2025 3:57 AM EDT [facility] Total Bilirubin 0.2 0.0 - 1.4 mg/dL LAB CHEMISTRY METHOD 07/15/2025 3:57 AM EDT [facility] Blood Venous blood specimen / Unknown Venipuncture / Unknown 07/15/2025 2:58 AM EDT 07/15/2025 3:09 AM EDT Julian Clarke MD LAB BLOOD ORDERABLES Final R esult Performing Organization Address City/[facility]/ZIP Co de Phone Number [facility] [address] [place] [address], * Troponin I high sensitivity (07/15/2025 2:58 AM EDT) [facility] Signature High Sensitivity Troponin I 4 <=54 ng/L LAB CHEMISTRY METHOD 07/15/2025 3:48 AM EDT [facility] Blood Venous blood specimen / Unknown Venipuncture / Unknown 07/15/2025 2:58 AM EDT 07/15/2025 3:10 AM EDT Narrative [facility] - 07/15/2025 3:48 AM EDT High levels of biotin in samples may falsely decrease hsTroponin values. Use caution when interpreting hsTroponin results in patients taking biotin who exhibit renal impairment (eGFR <60) or in patients taking more than 20 mg/day of biotin. us Julian Clakre MD LAB BLOOD ORDERABLES Final R esult Performing Organization Address City/[facility]/ZIP Co de Phone Number [facility] [address] [place] [address], [place] [phone] documented in this encounter Visit Diagnoses Diagnosis Chest pain with low risk for cardiac etiology- Primary Hypokalemia Hypopotassemia Suicidal ideation documented in this encounter Administered Medications Inactive Administered Medications - up to 3 most recent administrations Medication Order MAR Action Action Date Dose Rate Site magnesium sulfate 2 gram/50 mL (4 %) IVPB 2 g 2 g, intravenous, at 25 mL/hr, Administer over 2 Hours, Every 2 hours, First dose on Sun07/15/25 at 0509, For 2 doses New Bag 07/15/2025 5:58 AM EDT 2 g 25 mL/hr potassium chloride (KLOR-CON M20) CR tablet 40 mEq 40 mEq, oral, Once, On Sun07/15/25 at 0408, For 1 dose, Tablet may be swallowed whole (do not crush/chew/suck on) OR broken in half and each half swallowed separately OR dissolved (whole tablet) in ~4 ounces of water (allow ~2 minutes to dissolve, stir well and administer immediately). Given 07/15/2025 4:55 AM EDT 40 mEq potassium chloride 10 mEq/100 mL IVPB 10 mEq 10 mEq, intravenous, Once, On Sun07/15/25 at 0408, For 1 dose New Bag 07/15/2025 4:55 AM EDT 10 mEq documented in this encounter Active and Recently Administered Medications Times are shown in EDT. Scheduled Medication Order 07/13/2025 07/14/2025 07/15/2025 magnesium sulfate 2 gram/50 mL (4 %) IVPB 2 g 2 g, intravenous, at 25 mL/hr, Administer over 2 Hours, Every 2 hours, First dose on Sun07/15/25 at 0509, For 2 doses 0558 (New Bag - Prov ider: Lucita Bell RN)0614 (Canceled Entry - Provider: Lucita Bell RN - Comment: PEr only give total ofg 2g and not 4g. Confirmed with Julian LE)0805 (Stopped - Provider: Elsy Huizar RN) potassium chloride (KLOR-CON M20) CR tablet 40 mEq (COMPLETED) 40 mEq, oral, Once, On Sun07/15/25 at 0408, For 1 dose, Tablet may be swallowed whole (do not crush/chew/suck on) OR broken in half and each half swallowed separately OR dissolved (whole tablet) in ~4 ounces of water (allow ~2 minutes to dissolve, stir well and administer immediately). 0455 (Given - Provid er: Lucita Bell RN) potassium chloride 10 mEq/100 mL IVPB 10 mEq (COMPLETED) 10 mEq, intravenous, Once, On Sun07/15/25 at 0408, For 1 dose 0455 (New Bag - Prov ider: Lucita Bell RN)0600 (Stopped - Provider: Lucita Bell RN) documented in this encounter Orders Consult Count Last Ordered Date First Orde red Date IP CONSULT TO MILLING OPERATOR 1 07/15/2025 documented in this encounter Care Teams Filleter Relationship Specialty Start Date End Date Maribel Marquez [address] [place] [id number] PCP - General 09/08/24 documented as of this encounter
[2025-07-15 20:01] VITALS: BP 130/98; PULSE 116; O2SAT 98; BMI 42.9
[2025-07-15 20:05] VITALS: BP 160/98; PULSE 101; RESP 18; TEMP 36.6; O2SAT 95
[2025-07-15 21:01] LABS: MANUAL DIFF FLAG NO
--- NOTE | 2025-07-15 21:01 | ED.GENADULT ---
HPI - General Adult General Chief complaint: Psychiatric Symptoms Stated complaint: Hearing voices telling her to self harm Time Seen by Provider: 07/15/25 21:01 History of Present Illness ED Provider: Paula KIRBY narrative: The patient is a chronically mentally ill 49-year-old with a history of innumerable emergency room visits. She comes from her nursing home. She arrived by ambulance. She says that she comes today because she has been hearing voices telling her to harm herself. She says that the voices her father's voice. Her father is . Apparently the voice was saying that he was not actually which she says is a new phenomenon for her. She felt very upset and came to the emergency room by ambulance. She has not done anything to harm herself. The patient says that she was at the emergency room at [facility] yesterday complaining of abdominal pain. She was found to have a low potassium and low magnesium. These were repleted and she was discharged. Related Data Home Medications ?Medication ?Instructions ?Recorded ?Confirmed albuterol sulfate 90 mcg/actuation 2 puff inhalation Q6H PRN Wheezing 06/24/24 07/15/25 aerosol inhaler clozapine 100 mg tablet 200 mg PO BEDTIME 06/24/24 07/15/25 prazosin 2 mg capsule 4 mg PO BEDTIME 06/24/24 07/15/25 metformin 500 mg tablet 500 mg PO BID 07/15/24 07/15/25 atorvastatin 10 mg tablet 10 mg PO DAILY 05/23/25 07/15/25 ferrous sulfate 325 mg (65 mg 325 mg PO BID 05/23/25 07/15/25 iron) tablet fluticasone fur. 200 mcg-umeclid 1 ea inhalation DAILY 05/23/25 07/15/25 62.5 mcg-vilant 25 mcg inhalat.powder (Trelegy Ellipta) glycopyrrolate 1 mg tablet 1 mg PO BID 05/23/25 07/15/25 ibuprofen 600 mg tablet 600 mg PO Q6H PRN Mild Pain (Scale 05/23/25 07/15/25 Score 1-4) lorazepam 0.5 mg tablet 0.5 mg PO BID PRN Anxiety 05/23/25 07/15/25 mirtazapine 15 mg tablet 15 mg PO BEDTIME 05/23/25 07/15/25 montelukast 10 mg tablet 10 mg PO DAILY 05/23/25 07/15/25 ascorbic acid (vitamin C) 500 mg 500 mg PO BID 06/18/25 07/15/25 tablet (Vitamin C) benztropine 1 mg tablet 1 mg PO BID 06/18/25 07/15/25 buspirone 10 mg tablet 10 mg PO BID 06/18/25 07/15/25 famotidine 20 mg tablet 20 mg PO TIDWM 06/18/25 07/15/25 fluoxetine 40 mg capsule 80 mg PO DAILY 06/18/25 07/15/25 naproxen 500 mg tablet 500 mg PO BID PRN Pain (Scale 06/18/25 07/15/25 Score 4-6) pantoprazole 40 mg tablet,delayed 40 mg PO BID 06/18/25 07/15/25 release temazepam 15 mg capsule 15 mg PO BEDTIME PRN Insomnia 06/18/25 07/15/25 Previous Rx's ?Medication ?Instructions ?Recorded amlodipine 2.5 mg tablet 7.5 mg PO DAILY 30 days #90 tabs 06/01/25 haloperidol 5 mg tablet 15 mg (3 x 5 mg) PO BEDTIME 30 06/01/25 days #90 tabs hydrochlorothiazide 12.5 mg tablet 12.5 mg PO DAILY 30 days #30 tabs 06/01/25 nystatin 100,000 unit/gram topical 1 appl topical BID 30 days #30 06/01/25 cream grams haloperidol 5 mg tablet 5 mg PO BID@0900,1500 #60 tabs 06/23/25 nicotine 21 mg/24 hr daily 21 mg transdermal DAILY PRN 06/23/25 transdermal patch smoking cessation #30 ea trazodone 50 mg tablet 50 mg PO BEDTIME MRX1 PRN Insomnia 06/23/25 #60 tabs Allergies Allergy/AdvReac Type Severity Reaction Status Date / Time azithromycin (AZITHROMYCIN) Allergy Severe Rash Verified 07/15/25 20:04 Fish Containing Products Allergy Severe Anaphylaxis Verified 07/15/25 20:04 codeine (Codeine) Allergy Intermediate Rash Verified 07/15/25 20:04 Penicillins Allergy Intermediate Rash Verified 07/15/25 20:04 prednisone (Prednisone) Allergy Intermediate Rash Verified 07/15/25 20:04 Sulfa (Sulfonamide Allergy Intermediate Rash Verified 07/15/25 20:04 Antibiotics) (Sulfa (Sulfonamides)) ziprasidone (From Geodon) Allergy Intermediate dysuria, Verified 07/15/25 20:04 rash lithium Allergy Unknown Rash Verified 07/15/25 20:04 Review of Systems Review of Systems: Yes all other systems are reviewed and are negative [facility] Past Medical History Medical History Suicidal ideation Asthma Suicidal ideation MDD (major depressive disorder), recurrent episode, severe Chest pain Acute anxiety COVID-19 Full body hives Major depression Dizziness Suicide attempt UTI (urinary tract infection) Acetaminophen overdose COVID History of attempted suicide History of non-suicidal self-harm Hypomagnesemia Suicide attempt Suicide attempt by acetaminophen overdose Acetaminophen overdose Depression Diabetes type 2, controlled Borderline personality disorder PTSD (post-traumatic stress disorder) Overdose GERD (gastroesophageal reflux disease) Mood disorder Hyperlipidemia Bronchitis Social History Social History Household Members: Other Household Members Other:: nursing home members Housing: Other Housing Other:: Group Do you presently have visiting nurse or other home services: Yes (nursing home staff manage meds) Alcohol intake: never Comment: sitter in room Patient Tobacco Use Status: Current everyday Tobacco user Tobacco use type: Cigarette Cigarette Packs Per Day: 1 Cigarettes Per Day: 20.0 Years Smoked: 23 e-Cigarette/Vaping Use: Never Used Second Hand Smoke Exposure: No Substance Use Type: Caffiene Advance Directives: No Advance Directives Information Provided: Yes Do you have a plan to hurt others: No Plan service: No Current occupational status: unemployed and disabled Sexual orientation: Unable to collect Physical Exam ED Vital Signs: Vital Signs - 24 hr 07/15/25 20:05 07/15/25 22:29 Temperature 97.8 F 97.8 F Pulse Rate 101 H 101 H Respiratory Rate 18 18 Blood Pressure 160/98 H 160/98 H Pulse Oximetry 95 95 Oxygen Delivery Method Room Air Room Air BMI result Body Mass Index 42.9 Const Other: The patient is a chronically ill-appearing 49-year-old who was awake and alert and did not seem in acute distress. She was cooperative. Orientation/consciousness: patient oriented x3 HENMT Other: The face is symmetrical. ?Mucous membranes moist. Eyes Other: Pupils are round equal, conjunctivae are clear, extraocular movements intact Neck Neck: Yes normal visual inspection, Yes full ROM and Yes no JVD Resp Effort & Inspection: normal respiratory effort Auscultation: clear to auscultation bilaterally Cardio Rate: regular rate Rhythm: regular rhythm Heart sounds: S1 normal heart sound present and S2 normal heart sound present GI Other: Abdomen is soft and nontender Skin Other: The patient has innumerable old scars on both arms. Neuro General: patient oriented x3, gait normal, tone normal, moves all extremities, no focal motor deficits and CN's II-XI intact bilaterally Extrem Other: There is no calf swelling or tenderness. No asymmetry. No peripheral edema. Medical Decision Making Medical Decision Making [facility] Narrative: The patient is a 49-year-old female who presents once again complaining of auditory hallucinations telling her to harm herself. She has not to harm herself. Clinically the patient seems to be essentially at her baseline. I think she is medically clear for evaluation by the care team. The patient was seen by the care team. At that time she recanted her thoughts of harming herself and requested discharge. She seems medically clear and is now clear by the care team. This is a very common pattern for her ER visits. She will be discharged. Lab Data 07/15/25 20:56 07/15/25 20:56 Labs: Lab Results 07/15/25 07/15/25 Range/Units 20:34 20:56 WBC 8.2 (4.8-10.8) X10*3/uL RBC 4.37 (4.20-5.50) X10*6/uL Hgb 13.9 (12.0-16.0) g/dl Hct 39.6 (37.0-47.0) % MCV 90.6 (80.0-98.0) fL MCH 31.8 (27.0-33.0) pg MCHC 35.1 H (31.0-35.0) g/dl RDW 12.4 (11.0-16.0) % Plt Count 315 (160-400) X10*3/uL MPV 9.2 L (9.4-12.3) fL Immature Gran % (Auto) 0.9 H (0.0-0.4) % Neut % (Auto) 67.3 (45-73) % Lymph % (Auto) 20.5 (20-40) % Whiteside % (Auto) 7.4 (2-11) % Eos % (Auto) 3.4 (0-4) % Baso % (Auto) 0.5 (0-2) % Lymph # (Auto) 1.7 (1.2-4.9) X10*3/uL [place] # (Auto) 0.6 (0.1-1.2) X10*3/uL Eos # (Auto) 0.3 (0.0-0.4) X10*3/uL Baso # (Auto) 0.0 (0.0-0.2) X10*3/uL Abs Immat Gran (auto) 0.07 H (0.00-0.03) X10*3/uL Absolute Neuts (auto) 5.5 (2.0-8.3) x10*3/uL Absolute Nucleated RBC 0.000 (0.0-0.012) X10*3/uL Nucleated RBC % (auto) 0.0 (0.0-0.2) /100WBC Sodium 140 (135-145) mmol/L Potassium 3.6 (3.3-5.1) mmol/L Chloride 106 (96-108) mmol/L Carbon Dioxide 24 (22-29) mmol/L Anion Gap 14 (12-20) BUN 6 L (9-16) mg/dL Creatinine 0.70 (0.5-1.4) mg/dL Estim Creat Clear Calc 122.6 Estimated GFR > 60 Random Glucose 195 H (60-115) mg/dL Calcium 8.9 (8.4-10.2) mg/dL Total Bilirubin 0.2 (0.0-1.0) mg/dL AST 24 (5-31) U/L ALT 27 (0-31) U/L Alkaline Phosphatase 178 H (39-117) U/L Total Protein 7.1 (6.5-8.0) g/dL Albumin 4.7 (3.5-5.0) g/dL Urine Color Yellow Urine Appearance Clear Urine pH 6.5 (5.0-9.0) Ur Specific [place] <= 1.005 (1.005-1.025) Urine Protein Negative (Neg-Trace) mg/dL Urine Glucose (UA) Negative (Negative) mg/dL Urine Ketones Negative (Negative) mg/dL Urine Blood Negative (Negative) Urine Nitrite Negative (Negative) Ur Leukocyte Esterase Trace H (Negative) Urine RBC 0-2 (0-2) /HPF Urine WBC 0-5 (0-5) /HPF Ur Squamous Epith Cells 0-2 (0-2) /HPF Urine Bacteria None Seen (None Seen) Hyaline Casts 0-2 (0-2) /LPF Urine Test NEGATIVE (NEGATIVE) Urine Opiates Screen Not Detected (Not Detect) Ur Buprenorphine Scrn Not Detected (Not Detect) ng/mL Ur Oxycodone Screen Not Detected (Not Detect) ng/mL Urine Methadone Screen Not Detected (Not Detect) ng/mL Urine Fentanyl Screen Not Detected (Not Detect) Ur Barbiturates Screen Not Detected (Not Detect) Ur Phencyclidine Scrn Not Detected (Not Detect) Ur Amphetamines Screen Not Detected (Not Detect) U Benzodiazepines Scrn Not Detected (Not Detect) Urine Cocaine Screen Not Detected (Not Detect) U Marijuana (THC) Screen Not Detected (Not Detect) Ethyl Alcohol < 10 mg/dL Discharge Plan Discharge Clinical Impression: Auditory hallucinations Patient Disposition: Home, Self-Care Additional Instructions: Please resume your normal medications. Please follow up with your regular providers. Prescriptions: No Action glycopyrrolate 1 mg tablet 1 mg PO BID atorvastatin 10 mg tablet 10 mg PO DAILY lorazepam 0.5 mg tablet 0.5 mg PO BID PRN (Reason: Anxiety) Rx Instructions: Take 1 tablet at 9am and 1 tablet at 4pm ferrous sulfate 325 mg (65 mg iron) tablet 325 mg PO BID montelukast 10 mg tablet 10 mg PO DAILY mirtazapine 15 mg tablet 15 mg PO BEDTIME ibuprofen 600 mg tablet 600 mg PO Q6H PRN (Reason: Mild Pain (Scale Score 1-4)) Trelegy Ellipta 200-62.5-25 mcg blister with device 1 ea inhalation DAILY fluoxetine 40 mg Capsule 80 mg PO DAILY famotidine 20 mg Tablet 20 mg PO TIDWM ascorbic acid (vitamin C) [Vitamin C] 500 mg Tablet 500 mg PO BID buspirone 10 mg Tablet 10 mg PO BID benztropine 1 mg Tablet 1 mg PO BID naproxen 500 mg Tablet 500 mg PO BID PRN (Reason: Pain (Scale Score 4-6)) temazepam 15 mg Capsule 15 mg PO BEDTIME PRN (Reason: Insomnia) pantoprazole 40 mg Tablet,Delayed Release (Dr/Ec) 40 mg PO BID haloperidol 5 mg Tablet 5 mg PO BID@0900,1500 Qty: 60 0RF trazodone 50 mg Tablet 50 mg PO BEDTIME MRX1 PRN (Reason: Insomnia) Qty: 60 0RF nicotine 21 mg/24 hr Patch 24 Hour 21 mg transdermal DAILY PRN (Reason: smoking cessation) Qty: 30 0RF clozapine 100 mg tablet 200 mg PO BEDTIME albuterol sulfate 90 mcg/actuation HFA aerosol inhaler 2 puff inhalation Q6H PRN (Reason: Wheezing) prazosin 2 mg capsule 4 mg PO BEDTIME metformin 500 mg tablet 500 mg PO BID amlodipine 2.5 mg Tablet 7.5 mg PO DAILY 30 Days Qty: 90 0RF Protocol: Hold for SBP< HOLD for SBP < : 90 nystatin 100,000 unit/gram Cream 1 appl topical BID 30 Days Qty: 30 0RF Protocol: Apply to: Apply to: affected area hydrochlorothiazide 12.5 mg Tablet 12.5 mg PO DAILY 30 Days Qty: 30 0RF Protocol: Hold for SBP< HOLD for SBP < : 90 haloperidol 5 mg Tablet 15 mg PO BEDTIME 30 Days Qty: 90 0RF Referrals: Maribel Marquez NP [Primary Care Provider, Medical] Interventions: Ray-Suicide Risk Severity Scale Last Done: 07/15/25 20:07 ED Discharge Assessment Last Done: 07/15/25 22:29 Discharge Date/Time: 07/15/25 22:37 Print Language: Chinese
[2025-07-15 21:03] LABS: Hematocrit 39.6 % (37.0-47.0); Hemoglobin 13.9 g/dl (12.0-16.0); Imm Gran Abs Auto 0.07 X10*3/uL (0.00-0.03); Imm Gran Pct Auto 0.9 % (0.0-0.4); Lymphocytes Absolute Auto 1.7 X10*3/uL (1.2-4.9); Mean Corpuscular HGB Conc 35.1 g/dl (31.0-35.0); Mean Corpuscular Hemoglobin 31.8 pg (27.0-33.0); Mean Corpuscular Volume 90.6 fL (80.0-98.0); NRBC Abs Auto 0.000 X10*3/uL (0.0-0.012); NRBC Pct Auto 0.0 /100WBC (0.0-0.2); Platelet Count 315 X10*3/uL (160-400); Red Blood Count 4.37 X10*6/uL (4.20-5.50); White Blood Count 8.2 X10*3/uL (4.8-10.8)
[2025-07-15 21:05] LABS: Cannabinoid Screen Urine Not Detected (Not Detect)
[2025-07-15 21:10] LABS: Appearance Urine Clear; Glucose Urine UA Negative (Negative); PH 6.5 (5.0-9.0); Specific Gravity - Urine <= 1.005 (1.005-1.025); UMIC TRIGGER UACC YES
[2025-07-15 21:11] LABS: UPreg QC Valid YES
[2025-07-15 21:15] LABS: Alanine Aminotransferase 27 U/L (0-31); Albumin Level 4.7 g/dL (3.5-5.0); Alkaline Phosphatase 178 U/L (39-117); Anion Gap 14 (12-20); Aspartate Amino Transferase 24 U/L (5-31); Blood Urea Nitrogen 6 mg/dL (9-16); Calcium 8.9 mg/dL (8.4-10.2); Carbon Dioxide 24 mmol/L (22-29); Chloride 106 mmol/L (96-108); Creatinine Clr Calc Pharmacy 122.6; Estimated Glomerular Filt Rate > 60; Potassium 3.6 mmol/L (3.3-5.1); Sodium 140 mmol/L (135-145); Total Protein 7.1 g/dL (6.5-8.0)
--- OUTSIDE RECORDS SUMMARY | 2025-07-15 21:53 | XMS_ITS | Encounter Summary ---
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
--- OUTSIDE RECORDS SUMMARY | 2025-07-15 21:53 | XMS_ITS | Clinical Summary ---
Author Organization [facility] Address [address] [address] Phone Care Team Providers Care Architecture Internship Name Role Phone Maribel Marquez NP Primary Care Provider + Allergies Active Allergy Reactions Criticality Noted Date Comments Azithromycin 05/18/2023 Codeine 04/21/2009 Unknown reaction [place] Other (See Comments) 02/27/2013 pt reports 01/17/13 [...] EST) SODIUM 140 136 - 145 mmol/L [facility] POTASSIUM 3.7 3.4 - 5.1 mmol/L [facility] CHLORIDE 102 98 - 107 mmol/L [facility] CO2 23 22 - 31 mmol/L [facility] BUN 12 6 - 23 mg/dL [facility] CREATININE 0.63 0.50 - 1.20 mg/dL [facility] GLUCOSE 160(H) 70 - 100 mg/dL [facility] CALCIUM 9.2 8.8 - 10.7 mg/dL [facility] EGFR 111 >59 mL/min/1.7 3m2 [facility] Comment:Estimated glomerular filtration rate calculated using the CKD-EPI refit equation. ANION GAP 15 7 - 17 mmol/L [facility] Blood 08/24/2024 3:05 AM EST 08/24/2024 3:15 AM EST Parvez Duenas MD, MPH LAB BLOOD ORDERABLES F inal Result [facility] [address] [place] [address] from Last 3 Months or Most Recently Relevant to Health Maintenance Insurance [facility] MEDICARE PART A & B [facility] MED[facility] PART A & [place] [facility]IC[facility] PART A & [place] MED[place] PART A & B [facility] MEDICARE PART A & B Care Teams Architecture Internship Relationship Specialty Start Date End Date Maribel Marquez NP [address] [place] [address] PCP - General Nurse Practitioner 04/02/24 Additional Source Comments The information contained in this document represents components of the legal health record. It is not the complete legal health record.[facility]
--- OUTSIDE RECORDS SUMMARY | 2025-07-15 21:53 | XMS_ITS | Clinical Summary ---
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 [place] [address], * US Abdomen Limited (06/24/2025 2:55 AM [...] on 06/24/2025 03:25:29 us Julian Clarke MD IMG US PROCEDURES Final Resu lt * 12-Lead ECG (06/24/2025 2:32 AM EDT) Only the most recent of3 resultswithin the time period is included. Ventricular Rate ECG 109 BPM GEMUSE Atrial Rate 109 BPM GEMUSE P-R Interval 164 ms GEMUSE QRS Duration 90 ms GEMUSE Q-T Interval 366 ms GEMUSE QTc 492 ms GEMUSE P Wave [place] 46 degrees GEMUSE R [place] 24 degrees GEMUSE T [place] 45 degrees GEMUSE ECG Interpretation Sinus tachycardia Possible Left atrial enlargement When compared with ECG of 17-JUN-2025 04:17, No significant change was found Confirmed by KODY HARRIS ([id number]) on 06/24/2025 7:50:56 PM GEMUSE 06/24/2025 2:32 AM EDT 06/24/2025 7:50 PM EDT us Julian Clarke MD ECG ORDERABLES Final Result Performing Organization Address City/[facility]/ZIP Co de Phone Number GEMUSE * Lactate, with Reflex (06/24/2025 2:23 AM EDT) LACTIC ACID 1.9 0.4 - 2.0 mmol/L LAB CHEMISTRY METHOD 06/24/2025 3:21 AM EDT [facility] Blood Venous blood specimen / Unknown Venipuncture / Unknown 06/24/2025 2:23 AM EDT 06/24/2025 2:50 AM EDT Julian Clarke MD LAB BLOOD ORDERABLES Final R esult [facility] [address] [place] [address], [place] [phone] * CT Abdomen Pelvis w Contrast (06/03/2025 [...] urine culture tube (06/03/2025 2:49 AM EDT) [facility] Extra Tube Hold for add-ons. 06/03/2025 5:01 AM EDT [facility] Comment:Auto resulted. Urine Urine specimen obtained by clean catch procedure / Unknown Non-blood Collection / Unknown 06/03/2025 2:49 AM EDT 06/03/2025 3:04 AM EDT us Rudi Hilliard MD LAB URINE ORDERABLES Final Resul t Performing Organization Address [facility] Co de Phone Number [facility] [address] [place] [address], [place] [phone] * Beta hydroxybutyrate (06/03/2025 2:49 AM EDT) [facility] Beta-Hydroxybu tyrate 1.1 0.2 - 2.8 mg/dL LAB CHEMISTRY METHOD 06/03/2025 3:45 AM EDT [facility] Blood Venous blood specimen / Unknown Venipuncture / Unknown 06/03/2025 2:49 AM EDT 06/03/2025 3:05 AM EDT us Rudi Hilliard MD LAB BLOOD ORDERABLES Final Resul t Performing Organization Address City/[facility]/ZIP Co de Phone Number [facility] [address] [place] [address], [place] [phone] * hCG Quantitative (06/03/2025 2:49 AM EDT) [facility] hCG Quant <1 mIU/mL LAB CHEMISTRY METHOD 06/03/2025 3:45 AM EDT [facility] Blood Venous blood specimen / Unknown Venipuncture / Unknown 06/03/2025 2:49 AM EDT 06/03/2025 3:05 AM EDT Narrative [facility] - 06/03/2025 3:45 AM EDT Quantitative HCG Reference Ranges Time after Conception MIU/ML 0.2-1 Week 5-50 1-2 Weeks 50-500 2-3 Weeks 100-5,000 3-4 Weeks 500-10,000 4-5 Weeks 1,000-50,000 5-6 Weeks 10,000-100,000 6-8 Weeks 15,000-200,000 2-3 Months 10,000-100,000 2nd Trimester 1,000-94,000 3rd Trimester 2,500-90,000 Non- Females 1-3 us Rudi Hilliard MD LAB BLOOD ORDERABLES Final Resul t Performing Organization Address [facility]/ZIP Co de Phone Number [facility] [address] [place] [address], [place] [phone] * (ABNORMAL) Lactate (06/03/2025 2:49 AM EDT) [facility] Lactate 2.8(H) 0.4 - 2.0 mmol/L LAB CHEMISTRY METHOD 06/03/2025 3:31 AM EDT [facility] Blood Venous blood specimen / Unknown Venipuncture / Unknown 06/03/2025 2:49 AM EDT 06/03/2025 3:04 AM EDT us Rudi Hilliard MD LAB BLOOD ORDERABLES Final Resul t Performing Organization Address [facility]/ZIP Co de Phone Number [facility] [address] [place] [address], [place] [phone] * , Urine (05/18/2025 7:00 PM EDT) [facility] Preg Test, Ur Negative Negative 05/18/2025 7:43 PM EDT [facility]) HOSPITAL LAB Urine Urine specimen obtained by clean catch procedure / Unknown Non-blood Collection / Unknown 05/18/2025 7:00 PM EDT 05/18/2025 7:13 PM EDT Janine Stewart DO LAB URINE ORDERABLES Final Re sult Performing Organization Address City/[facility]/ZIP Co de Phone Number [facility] [address] [place] [address], [place] [phone] * Pap smear (04/22/2024) 04/22/2024 Narrative HISTORICAL TESTING LAB RESULTING AGENCY - 04/28/2024 11:46 AM EDT [id number] THINPREP PAP, IMAGED: NEGATIVE FOR SQUAMOUS INTRAEPITHELIAL [...] Documents on File Type Date Recorded 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
[2025-07-15 22:29] VITALS: BP 160/98; PULSE 101; RESP 18; TEMP 36.6; O2SAT 95
== END 2025-07-15 22:37 | disposition home or self-care (01) ==
PROVIDERS: Physician Assistant; Emergency Provider Emergency Medicine; PCP Nurse Practitioner Family
DX: R44.0 Auditory hallucinations (principal); E11.9 Type 2 diabetes mellitus without complications; K21.9 Gastro-esophageal reflux disease without esophagitis; E78.5 Hyperlipidemia, unspecified; Z79.899 Other long term (current) drug therapy
CPT/HCPCS: 36415; 80053; 80307; 81001; 81025; 85025; 99285; S9485

== ENCOUNTER 2025-07-18 21:19 | Emergency (ER) | payer MEDICARE, MEDICAID, SELFPAY ==
--- OUTSIDE RECORDS SUMMARY | 2025-07-15 02:20 | XMS_ITS | Encounter Summary ---
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 Elsy Huizar, WALKER) potassium chloride (KLOR-CON M20) CR tablet 40 [...] First Orde red Date IP CONSULT TO CEREAL CHEMIST 1 07/15/2025 documented in this encounter Care Teams Burr Picker Relationship Specialty Start Date End Date Maribel Marquez [address] [place] [id number] PCP - General 09/08/24 documented as of this encounter
--- NOTE | 2025-07-18 21:25 | ED.PSYCH ---
HPI - Psych General Chief Complaint: Psychiatric Symptoms Stated Complaint: SI w/ plan, hx: depression & anxiety meds not work Time Seen by Provider: 07/18/25 21:19 Source: patient and EMS Mode of arrival: EMS Limitations: no limitations History of Present Illness ED Provider: Dr. Eileen Ryan HPI Narrative: Patient comes to the emergency room complaining of suicidal thoughts, hallucinations. Patient denies harming herself in any way prior to arrival, denies HI. Related Data Home Medications ?Medication ?Instructions ?Recorded ?Confirmed albuterol sulfate 90 mcg/actuation 2 puff inhalation Q6H PRN Wheezing 06/24/24 07/19/25 aerosol inhaler clozapine 100 mg tablet 200 mg PO BEDTIME 06/24/24 07/19/25 prazosin 2 mg capsule 4 mg PO BEDTIME 06/24/24 07/19/25 metformin 500 mg tablet 500 mg PO BID 07/15/24 07/19/25 atorvastatin 10 mg tablet 10 mg PO DAILY 05/23/25 07/19/25 ferrous sulfate 325 mg (65 mg 325 mg PO BID 05/23/25 07/19/25 iron) tablet fluticasone fur. 200 mcg-umeclid 1 ea inhalation DAILY 05/23/25 07/19/25 62.5 mcg-vilant 25 mcg inhalat.powder (Trelegy Ellipta) glycopyrrolate 1 mg tablet 1 mg PO BID 05/23/25 07/19/25 ibuprofen 600 mg tablet 600 mg PO Q6H PRN Mild Pain (Scale 05/23/25 07/19/25 Score 1-4) lorazepam 0.5 mg tablet 0.5 mg PO BID PRN Anxiety 05/23/25 07/19/25 mirtazapine 15 mg tablet 15 mg PO BEDTIME 05/23/25 07/19/25 montelukast 10 mg tablet 10 mg PO DAILY 05/23/25 07/19/25 ascorbic acid (vitamin C) 500 mg 500 mg PO BID 06/18/25 07/19/25 tablet (Vitamin C) benztropine 1 mg tablet 1 mg PO BID 06/18/25 07/19/25 buspirone 10 mg tablet 10 mg PO BID 06/18/25 07/19/25 famotidine 20 mg tablet 20 mg PO TIDWM 06/18/25 07/19/25 fluoxetine 40 mg capsule 80 mg PO DAILY 06/18/25 07/19/25 naproxen 500 mg tablet 500 mg PO BID PRN Pain (Scale 06/18/25 07/19/25 Score 4-6) pantoprazole 40 mg tablet,delayed 40 mg PO BID 06/18/25 07/19/25 release temazepam 15 mg capsule 15 mg PO BEDTIME PRN Insomnia 06/18/25 07/19/25 Previous Rx's ?Medication ?Instructions ?Recorded amlodipine 2.5 mg tablet 7.5 mg PO DAILY 30 days #90 tabs 06/01/25 haloperidol 5 mg tablet 15 mg (3 x 5 mg) PO BEDTIME 30 06/01/25 days #90 tabs hydrochlorothiazide 12.5 mg tablet 12.5 mg PO DAILY 30 days #30 tabs 06/01/25 nystatin 100,000 unit/gram topical 1 appl topical BID 30 days #30 06/01/25 cream grams haloperidol 5 mg tablet 5 mg PO BID@0900,1500 #60 tabs 06/23/25 nicotine 21 mg/24 hr daily 21 mg transdermal DAILY PRN 06/23/25 transdermal patch smoking cessation #30 ea trazodone 50 mg tablet 50 mg PO BEDTIME MRX1 PRN Insomnia 06/23/25 #60 tabs Allergies Allergy/AdvReac Type Severity Reaction Status Date / Time azithromycin (AZITHROMYCIN) Allergy Severe Rash Verified 07/18/25 21:39 Fish Containing Products Allergy Severe Anaphylaxis Verified 07/18/25 21:39 codeine (Codeine) Allergy Intermediate Rash Verified 07/18/25 21:39 Penicillins Allergy Intermediate Rash Verified 07/18/25 21:39 prednisone (Prednisone) Allergy Intermediate Rash Verified 07/18/25 21:39 Sulfa (Sulfonamide Allergy Intermediate Rash Verified 07/18/25 21:39 Antibiotics) (Sulfa (Sulfonamides)) ziprasidone (From Geodon) Allergy Intermediate dysuria, Verified 07/18/25 21:39 rash lithium Allergy Unknown Rash Verified 07/18/25 21:39 Review of Systems Review of Systems: Constitutional : No Weight loss, No Fever, No Chills, No Night Sweats, No Fatigue, No Malaise ENT/Mouth : No Hearing loss, No Ear Pain, No Nasal Congestion, No Sinus Pain, No Hoarseness, No sore throat, No Rhinorrhea, No Swallowing Difficulty Eyes: No Eye Pain, No Swelling, No Redness, No Foreign Body, No Discharge, No Vision Changes Cardiovascular : No Chest Pain, No SOB, No Dyspnea on Exertion, No Orthopnea, No Edema, No Palpitations Respiratory : No Cough, No Sputum, No Wheezing, No Smoke Exposure, No Dyspnea Gastrointestinal : No Nausea, No Vomiting, No Diarrhea, No Constipation, No abdominal Pain, No Hematochezia, No Melena Genitourinary : no irregular bleeding, No Dysuria, No Urinary Frequency, No Hematuria, No Urinary Incontinence, No Urgency, No Flank Pain, No Urinary Flow Changes, No Hesitancy Musculoskeletal : No joint pain, No Myalgias, No Joint Swelling Skin : No Skin Lesions, No rash Neuro : No Weakness, No Numbness, No Paresthesias, No Loss of Consciousness, No Dizziness, No Headache Psych : Complaining of anxiety, SI, hallucinations, no HI Heme/Lymph: No Bruising, No Bleeding,No Lymphadenopathy Endocrine : No Polyuria, No Polydipsia, No Temperature Intolerance PMFSH Past Medical History Medical History Suicidal ideation Asthma Suicidal ideation MDD (major depressive disorder), recurrent episode, severe Chest pain Acute anxiety COVID-19 Full body hives Major depression Dizziness Suicide attempt UTI (urinary tract infection) Acetaminophen overdose COVID History of attempted suicide History of non-suicidal self-harm Hypomagnesemia Suicide attempt Suicide attempt by acetaminophen overdose Acetaminophen overdose Depression Diabetes type 2, controlled Borderline personality disorder PTSD (post-traumatic stress disorder) Overdose GERD (gastroesophageal reflux disease) Mood disorder Hyperlipidemia Bronchitis Social History Social History Household Members: Other Household Members Other:: [facility] members Housing: Other Housing Other:: Group Do you presently have visiting nurse or other home services: Yes ([facility] staff manage meds) Alcohol intake: never Comment: sitter in room Patient Tobacco Use Status: Current everyday Tobacco user Tobacco use type: Cigarette Cigarette Packs Per Day: 1 Cigarettes Per Day: 20.0 Years Smoked: 23 Smoked in Last 30 Days: Yes e-Cigarette/Vaping Use: Never Used Second Hand Smoke Exposure: No Use of substances other than those prescribed or required for medical reasons: No Substance Use Type: Caffiene Advance Directives: No Advance Directives Information Provided: No Patient : No service: No Current occupational status: unemployed and disabled Sexual orientation: Unable to collect Physical Exam Exam: Exam: Appearance: Alert. Oriented X3. No acute distress. Eyes: Pupils equal, round and reactive to light. ENT: Pharynx normal. Neck: Normal inspection. Neck supple. No lymph nodes noted. No crepitus CVS: Normal heart rate and rhythm. Pulses normal. Normal S1 and S2 Respiratory: No respiratory distress. Breath sounds normal. No Wheezing. No rales Abdomen: Soft and nontender. No rigidity. No distention. Skin: Skin warm and dry. Normal skin color. Normal skin turgor. Old scar tissue over the forearms Extremities: No lower extremity edema. No Lacerations. No Rash Neuro: Oriented X 3. No motor deficit. No sensory deficit. Moving all extremities. No slurred speech. CN 2 through 12 grossly intact Psych: calm, cooperative, normal affect Vital Signs: Vital Signs: Last Vital Signs Temp 97.8 F 07/19/25 06:23 Pulse 97 07/19/25 06:23 Resp 17 07/19/25 06:23 BP 104/56 L 07/19/25 06:23 Pulse Ox 96 07/19/25 06:23 O2 Del Method Room Air 07/19/25 06:23 BMI result Body Mass Index 35.2 Course Course Course Narrative: Patient well known to the emergency department and Psychiatry/care team Labs pending Care team consult pending Reevaluation(s) Reevaluation #1: Care team input is appreciated, patient currently have no SI, no HI, no hallucination, patient feeling safe to be discharged back to the [facility]. Will discontinue physician observation and discharge. Time: 14:12 Medical Decision Making Lab Data 07/18/25 22:03 07/18/25 22:03 Labs: Lab Results 07/18/25 07/18/25 Range/Units 21:43 22:03 WBC 9.7 (4.8-10.8) X10*3/uL RBC 4.19 L (4.20-5.50) X10*6/uL Hgb 13.3 (12.0-16.0) g/dl Hct 37.6 (37.0-47.0) % MCV 89.7 (80.0-98.0) fL MCH 31.7 (27.0-33.0) pg MCHC 35.4 H (31.0-35.0) g/dl RDW 12.4 (11.0-16.0) % Plt Count 309 (160-400) X10*3/uL MPV 9.2 L (9.4-12.3) fL Immature Gran % (Auto) 0.6 H (0.0-0.4) % Neut % (Auto) 71.3 (45-73) % Lymph % (Auto) 18.2 L (20-40) % [place] % (Auto) 7.0 (2-11) % Eos % (Auto) 2.4 (0-4) % Baso % (Auto) 0.5 (0-2) % Lymph # (Auto) 1.8 (1.2-4.9) X10*3/uL [place] # (Auto) 0.7 (0.1-1.2) X10*3/uL Eos # (Auto) 0.2 (0.0-0.4) X10*3/uL Baso # (Auto) 0.1 (0.0-0.2) X10*3/uL Abs Immat Gran (auto) 0.06 H (0.00-0.03) X10*3/uL Absolute Neuts (auto) 6.9 (2.0-8.3) x10*3/uL Absolute Nucleated RBC 0.000 (0.0-0.012) X10*3/uL Nucleated RBC % (auto) 0.0 (0.0-0.2) /100WBC Sodium 140 (135-145) mmol/L Potassium 3.2 L (3.3-5.1) mmol/L Chloride 104 (96-108) mmol/L Carbon Dioxide 24 (22-29) mmol/L Anion Gap 15 (12-20) BUN 14 (9-16) mg/dL Creatinine 0.75 (0.5-1.4) mg/dL Estim Creat Clear Calc 109.9 Estimated GFR > 60 Random Glucose 149 H (60-115) mg/dL Calcium 9.0 (8.4-10.2) mg/dL Total Bilirubin 0.1 (0.0-1.0) mg/dL Direct Bilirubin < 0.2 (0.0-0.5) mg/dL AST 20 (5-31) U/L ALT 22 (0-31) U/L Alkaline Phosphatase 165 H (39-117) U/L Total Protein 6.7 (6.5-8.0) g/dL Albumin 4.4 (3.5-5.0) g/dL Urine Color Yellow Urine Appearance Clear Urine pH 6.0 (5.0-9.0) Ur Specific [place] <= 1.005 (1.005-1.025) Urine Protein Negative (Neg-Trace) mg/dL Urine Glucose (UA) Negative (Negative) mg/dL Urine Ketones Negative (Negative) mg/dL Urine Blood Negative (Negative) Urine Nitrite Negative (Negative) Ur Leukocyte Esterase Negative (Negative) Salicylates < 5.0 L (15-30) mg/dL Urine Opiates Screen Not Detected (Not Detect) Ur Buprenorphine Scrn Not Detected (Not Detect) ng/mL Ur Oxycodone Screen Not Detected (Not Detect) ng/mL Urine Methadone Screen Not Detected (Not Detect) ng/mL Urine Fentanyl Screen Not Detected (Not Detect) Acetaminophen < 3 (<30) mcg/mL Ur Barbiturates Screen Not Detected (Not Detect) Ur Phencyclidine Scrn Not Detected (Not Detect) Ur Amphetamines Screen Not Detected (Not Detect) U Benzodiazepines Scrn Not Detected (Not Detect) Urine Cocaine Screen Not Detected (Not Detect) U Marijuana (THC) Screen Not Detected (Not Detect) Ethyl Alcohol < 10 mg/dL Critical Care Time Critical Care Time Critical Care Time: Yes Total Critical Care Time: 35 Attestation: I have personally provided critical care time. Time includes review of lab data, radiology results, discussion with consultants, and monitoring for potential decompensation. Intervention performed as documented. Discharge Plan Discharge Clinical Impression: Hallucinations Patient Disposition: Home, Self-Care Instructions: Hallucinations (ED) Prescriptions: No Action glycopyrrolate 1 mg tablet 1 mg PO BID atorvastatin 10 mg tablet 10 mg PO DAILY lorazepam 0.5 mg tablet 0.5 mg PO BID PRN (Reason: Anxiety) Rx Instructions: Take 1 tablet at 9am and 1 tablet at 4pm ferrous sulfate 325 mg (65 mg iron) tablet 325 mg PO BID montelukast 10 mg tablet 10 mg PO DAILY mirtazapine 15 mg tablet 15 mg PO BEDTIME ibuprofen 600 mg tablet 600 mg PO Q6H PRN (Reason: Mild Pain (Scale Score 1-4)) Trelegy Ellipta 200-62.5-25 mcg blister with device 1 ea inhalation DAILY fluoxetine 40 mg Capsule 80 mg PO DAILY famotidine 20 mg Tablet 20 mg PO TIDWM ascorbic acid (vitamin C) [Vitamin C] 500 mg Tablet 500 mg PO BID buspirone 10 mg Tablet 10 mg PO BID benztropine 1 mg Tablet 1 mg PO BID naproxen 500 mg Tablet 500 mg PO BID PRN (Reason: Pain (Scale Score 4-6)) temazepam 15 mg Capsule 15 mg PO BEDTIME PRN (Reason: Insomnia) pantoprazole 40 mg Tablet,Delayed Release (Dr/Ec) 40 mg PO BID haloperidol 5 mg Tablet 5 mg PO BID@0900,1500 Qty: 60 0RF trazodone 50 mg Tablet 50 mg PO BEDTIME MRX1 PRN (Reason: Insomnia) Qty: 60 0RF nicotine 21 mg/24 hr Patch 24 Hour 21 mg transdermal DAILY PRN (Reason: smoking cessation) Qty: 30 0RF clozapine 100 mg tablet 200 mg PO BEDTIME albuterol sulfate 90 mcg/actuation HFA aerosol inhaler 2 puff inhalation Q6H PRN (Reason: Wheezing) prazosin 2 mg capsule 4 mg PO BEDTIME metformin 500 mg tablet 500 mg PO BID amlodipine 2.5 mg Tablet 7.5 mg PO DAILY 30 Days Qty: 90 0RF Protocol: Hold for SBP< HOLD for SBP < : 90 nystatin 100,000 unit/gram Cream 1 appl topical BID 30 Days Qty: 30 0RF Protocol: Apply to: Apply to: affected area hydrochlorothiazide 12.5 mg Tablet 12.5 mg PO DAILY 30 Days Qty: 30 0RF Protocol: Hold for SBP< HOLD for SBP < : 90 haloperidol 5 mg Tablet 15 mg PO BEDTIME 30 Days Qty: 90 0RF Interventions: [place]-Suicide Risk Severity Scale Last Done: 07/18/25 21:44 Print Language: Bahamian
[2025-07-18 21:30] VITALS: BP 180/110; PULSE 134; O2SAT 98
--- NOTE | 2025-07-18 21:35 | MHC.EDTECH ---
Belongings list states Pts belongings in locker #4, but this was changed to locker #7 after list completed and saved. Noted on printed list as well.
[2025-07-18 21:38] VITALS: BP 121/95; PULSE 130; RESP 18; TEMP 36.1; O2SAT 100; BMI 35.2
--- OUTSIDE RECORDS SUMMARY | 2025-07-18 21:55 | XMS_ITS | Clinical Summary ---
Author Organization [facility] Address [address] [address] Phone Care Team Providers Care Lpn Care Manager Name Role Phone Maribel Marquez NP Primary Care Provider + Allergies Active Allergy Reactions Criticality Noted Date Comments Azithromycin 05/18/2023 Codeine 04/21/2009 Unknown reaction [place] Other (See Comments) 02/27/2013 pt reports 01/17/13 [...] EST) SODIUM 140 136 - 145 mmol/L [facility] POTASSIUM 3.7 3.4 - 5.1 mmol/L [facility] CHLORIDE 102 98 - 107 mmol/L [facility] CO2 23 22 - 31 mmol/L [facility] BUN 12 6 - 23 mg/dL [facility] CREATININE 0.63 0.50 - 1.20 mg/dL [facility] GLUCOSE 160(H) 70 - 100 mg/dL [facility] CALCIUM 9.2 8.8 - 10.7 mg/dL [facility] EGFR 111 >59 mL/min/1.7 3m2 [facility] Comment:Estimated glomerular filtration rate calculated using the CKD-EPI refit equation. ANION GAP 15 7 - 17 mmol/L [facility] Blood 08/24/2024 3:05 AM EST 08/24/2024 3:15 AM EST Parvez Duenas MD, MPH LAB BLOOD ORDERABLES F inal Result [facility] [address] [place] [address] from Last 3 Months or Most Recently Relevant to Health Maintenance Insurance [facility] MEDIC[facility] [place] [facility] [place] B [facility] MEDICARE PART A & B Care Teams Lpn Care Manager Relationship Specialty Start Date End Date Maribel Marquez NP [address] [place] [address] PCP - General Nurse Practitioner 04/02/24 Additional Source Comments The information contained in this document represents components of the legal health record. It is not the complete legal health record.[facility]
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
--- NOTE | 2025-07-18 21:56 | PC.NURSE ---
Patient [facility]ig[facility]to from her jail for SI with plan to OD on her medications or cut her wrist with a knife, worsening Depression and Anxiety, hearing voices telling her to self harm herself, and seeing her father. Patient denies HI. Patient has history of chronic SI ideation. Patient reports compliance with her psychiatric medications. Patient was changed over into a behavioral pod attire at main ED. Patient alert and oriented x3. Patient denies any pain discomfort. HR 130 on arrival to BP pod. Patient denies chest pain/SOB. Urine sample collected and sent to lab for processing. Patient reports fungal rash to right abdominal fold that has been treated with Nystatin powder at jail. Patient requested and was given a turkey sandwich and octaviano yudelka, tolerated well. Patient currently resting n bed, watching TV, offer no complaints at this time.
--- OUTSIDE RECORDS SUMMARY | 2025-07-18 21:56 | XMS_ITS | Encounter Summary ---
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
[2025-07-18 22:00] LABS: Cannabinoid Screen Urine Not Detected (Not Detect)
[2025-07-18 22:08] LABS: MANUAL DIFF FLAG NO
[2025-07-18 22:09] LABS: Hematocrit 37.6 % (37.0-47.0); Hemoglobin 13.3 g/dl (12.0-16.0); Imm Gran Abs Auto 0.06 X10*3/uL (0.00-0.03); Imm Gran Pct Auto 0.6 % (0.0-0.4); Lymphocytes Absolute Auto 1.8 X10*3/uL (1.2-4.9); Mean Corpuscular HGB Conc 35.4 g/dl (31.0-35.0); Mean Corpuscular Hemoglobin 31.7 pg (27.0-33.0); Mean Corpuscular Volume 89.7 fL (80.0-98.0); NRBC Abs Auto 0.000 X10*3/uL (0.0-0.012); NRBC Pct Auto 0.0 /100WBC (0.0-0.2); Platelet Count 309 X10*3/uL (160-400); Red Blood Count 4.19 X10*6/uL (4.20-5.50); White Blood Count 9.7 X10*3/uL (4.8-10.8)
[2025-07-18 22:25] LABS: Acetaminophen LAB < 3 mcg/mL (<30); Alanine Aminotransferase 22 U/L (0-31); Albumin Level 4.4 g/dL (3.5-5.0); Alkaline Phosphatase 165 U/L (39-117); Anion Gap 15 (12-20); Aspartate Amino Transferase 20 U/L (5-31); Blood Urea Nitrogen 14 mg/dL (9-16); Calcium 9.0 mg/dL (8.4-10.2); Carbon Dioxide 24 mmol/L (22-29); Chloride 104 mmol/L (96-108); Creatinine Clr Calc Pharmacy 109.9; Estimated Glomerular Filt Rate > 60; Potassium 3.2 mmol/L (3.3-5.1); Salicylate < 5.0 mg/dL (15-30); Sodium 140 mmol/L (135-145); Total Protein 6.7 g/dL (6.5-8.0)
[2025-07-19 06:23] VITALS: BP 104/56; PULSE 97; RESP 17; TEMP 36.6; O2SAT 96
--- NOTE | 2025-07-19 07:09 | PC.NURSE ---
Assumed care of patient at 0645, patient appears to be sleeping, respirations even and unlabored, no apparent distress noted. Continue plan of care for CARE team gigi
[2025-07-19 07:22] LABS: Appearance Urine Clear; Glucose Urine UA Negative (Negative); PH 6.0 (5.0-9.0); Specific Gravity - Urine <= 1.005 (1.005-1.025)
[2025-07-19 14:17] VITALS: BP 104/56; PULSE 97; RESP 17; TEMP 36.6; O2SAT 96
== END 2025-07-19 14:59 | disposition home or self-care (01) ==
PROVIDERS: Emergency Provider Emergency Medicine; PCP Nurse Practitioner Family
DX: F33.1 Major depressive disorder, recurrent, moderate (principal); R45.851 Suicidal ideations; F41.9 Anxiety disorder, unspecified; R44.3 Hallucinations, unspecified; F17.210 Nicotine dependence, cigarettes, uncomplicated; Z79.899 Other long term (current) drug therapy
CPT/HCPCS: 36415; 80048; 80076; 80143; 80179; 80307; 81003; 85025; 99285; S9485

== ENCOUNTER 2025-07-23 21:22 | Inpatient (IN) | payer MEDICARE, MEDICAID, SELFPAY ==
[2025-07-23 21:52] VITALS: BP 147/101; PULSE 119; RESP 18; TEMP 37.1; O2SAT 95
[2025-07-23 23:36] VITALS: BMI 39.0
--- NOTE | 2025-07-24 03:26 | PC.ADMIT ---
Addendum entered by Artur Braun RN 07/24/25 05:02: Patient is on safety checks every 5 minutes. Original Note: Lucita arrived on M-5 around 2130 hours. Legal status is a CV. She was brought into the unit by paramedics via stretcher. Patient is a 49 y.o single Sami speaking female transferred from [facility] after a suicide attempt. Per transfer medical records, she presented to [facility] ED on 07/21/25 after drinking nail serbian remover. Patient reported hearing voices that told her to hurt herself. She resides at a nursing home, and the staff at the program reported to [facility] that patient had been non-coliant with her medications, going back several weeks. Patient denies SI and SIB/AH during 1-1 assessment. However, report she has hx of SIB. She has chronic SI hx and multiple suicide attempts per patient reports via ODs and other methods that she cannot recall. Denies sleep/appetite lately. Patient stated that she is tired, but denies hearing voices during assessment. Endorsed both anxiety and depression, rating both as 10/10. When asked about medications, pt stated that she has been compliant with meds which was managed by her [facility] staff where she has been resided for more than a year. Housing is stable and able to return. Denies substance use except cigarette which he smokes 1 PPD. Denies alcohol or any other drug use. Pt was discharged from 4 weeks ago, she had one ED visit to [facility] a week ago but was not admitted. Patient was oriented to the unit, placed on 15 minute safety checks.
[2025-07-24 08:00] VITALS: BP 142/70; PULSE 86; RESP 16; TEMP 35.9; O2SAT 95
--- NOTE | 2025-07-24 08:45 | HO.PM.IMCN ---
History of Present Illness Data of Consult Service Date: 07/24/25 Primary Care Provider: Maribel Marquez NP HPI Reason for consult: Medical consult 49-year-old female with past medical history significant for hypertension, hyperlipidemia, borderline personality disorder, constipation, depression, first-degree AV block, GERD, history of pseudoseizures, PTSD prediabetes, asthma and anxiety with major depression, psychosis came in from a senior living after suicide attempt. She drank 1 oz of nail Tristanian remover. Initial EKG demonstrated sinus tach with a nonspecific ST, T wave change with a QTC of 464, 2nd EKG demonstrated sinus tach with a possible left atrial enlargement both with no ischemic changes. Her blood gases were normal, electrolytes were normal, CBC was unremarkable, drug screen and urinary test were negative. Her alcohol level was 6, and her volatile alcohol level is pending. She stated that she wanted to kill herself. FOR[facility]LY [facility] Medical History Suicidal ideation Asthma Suicidal ideation MDD (major depressive disorder), recurrent episode, severe Chest pain Acute anxiety COVID-19 Full body hives Major depression Dizziness Suicide attempt UTI (urinary tract infection) Acetaminophen overdose COVID History of attempted suicide History of non-suicidal self-harm Hypomagnesemia Suicide attempt Suicide attempt by acetaminophen overdose Acetaminophen overdose Depression Diabetes type 2, controlled Borderline personality disorder PTSD (post-traumatic stress disorder) Overdose GERD (gastroesophageal reflux disease) Mood disorder Hyperlipidemia Bronchitis Social History Household Members: Other Household Members Other:: Lives at a senior living Housing: Other Housing Other:: penitentiary Do you presently have visiting nurse or other home services: No Alcohol intake: never Comment: sitter in room Patient Tobacco Use Status: Current everyday Tobacco user Tobacco use type: Cigarette Cigarette Packs Per Day: 1 Cigarettes Per Day: 20.0 Years Smoked: 20 Smoked in Last 30 Days: Yes e-Cigarette/Vaping Use: Never Used Frequency of e-Cigarette/Vaping Use: Never Patient Interested in Nicotine Replacement: Yes Patient Given Instructions on How to Stop Smoking: Yes Date Education Initiated: 07/24/25 Second Hand Smoke Exposure: No Substance Use Type: Caffiene Currently Displaying Signs/Symptoms of Drug Intoxication Withdrawal: No Have you been hit, kicked, punched, or otherwise hurt by someone within the past year? If so, by whom?: No Do you feel safe in your current relationship?: No Current Relationship Is there a partner from a previous relationship who is making you feel unsafe now?: No Are you made to feel afraid or neglected: No Advance Directives: No Advance Directives Information Provided: Yes Do you have thoughts of harming others: None Do you have a plan to hurt others: No Plan Recently lost weight without trying: No How much weight loss: Not applicable Eating poorly because of decreased appetite: No Nutrition screen score: 0 Nutrition Risks: No Nutritional Risk Patient : No : No Poor oral hygiene: No service: No Current occupational status: unemployed and disabled Sexual orientation: Unable to collect Meds Allergies Allergy/AdvReac Type Severity Reaction Status Date / Time azithromycin (AZITHROMYCIN) Allergy Severe Rash Verified 07/18/25 21:39 Fish Containing Products Allergy Severe Anaphylaxis Verified 07/18/25 21:39 codeine (Codeine) Allergy Intermediate Rash Verified 07/18/25 21:39 Penicillins Allergy Intermediate Rash Verified 07/18/25 21:39 prednisone (Prednisone) Allergy Intermediate Rash Verified 07/18/25 21:39 Sulfa (Sulfonamide Allergy Intermediate Rash Verified 07/18/25 21:39 Antibiotics) (Sulfa (Sulfonamides)) ziprasidone (From Geodon) Allergy Intermediate dysuria, Verified 07/18/25 21:39 rash lithium Allergy Unknown Rash Verified 07/18/25 21:39 Active Medications: Current Medications Acetaminophen (Acetaminophen 325 Mg Tablet) 650 mg PO Q6H PRN PRN Reason: Headache/Pain, Scale 1-10 Al Hydroxide/Mg Hydroxide (Magnesium Hydrox/Alum Hydrox 30 Ml Oral.Susp) 30 ml PO Q6H PRN PRN Reason: Heartburn/Nausea Hydroxyzine HCl (Hydroxyzine Hcl 25 Mg Tablet) 25 mg PO Q6H PRN PRN Reason: mild anxiety Last Admin: 07/24/25 01:45 Dose: 25 mg Magnesium Hydroxide (Milk Of Magnesia 30 Ml Oral.Susp) 30 ml PO DAILY PRN PRN Reason: Constipation Nicotine Polacrilex (Nicotine Polacrilex 2 Mg Gum) 4 mg BUCCAL Q2H PRN PRN Reason: Nicotine Cravings Trazodone HCl (Trazodone Hcl 50 Mg Tablet) 50 mg PO BEDTIME MRX1 PRN PRN Reason: Insomnia Last Admin: 07/24/25 01:45 Dose: 50 mg Home Medications ?Medication ?Instructions ?Recorded ?Confirmed ?Last Taken ?Type albuterol sulfate 90 mcg/actuation 2 puff inhalation Q6H PRN Wheezing 06/24/24 07/23/25 07/18/25 History aerosol inhaler clozapine 100 mg tablet 200 mg PO BEDTIME 06/24/24 07/23/25 07/18/25 History prazosin 2 mg capsule 4 mg PO BEDTIME 06/24/24 07/23/25 07/18/25 History metformin 500 mg tablet 500 mg PO BID 07/15/24 07/23/25 07/18/25 History atorvastatin 10 mg tablet 10 mg PO DAILY 05/23/25 07/23/25 07/18/25 History lorazepam 0.5 mg tablet 0.5 mg PO BID PRN Anxiety 05/23/25 07/23/25 07/18/25 History mirtazapine 15 mg tablet 15 mg PO BEDTIME 05/23/25 07/23/25 07/18/25 History ascorbic acid (vitamin C) 500 mg 500 mg PO BID 06/18/25 07/23/25 07/18/25 History tablet (Vitamin C) benztropine 1 mg tablet 1 mg PO BID 06/18/25 07/23/25 07/18/25 History buspirone 10 mg tablet 10 mg PO BID 06/18/25 07/23/25 07/18/25 History temazepam 15 mg capsule 15 mg PO BEDTIME PRN Insomnia 06/18/25 07/23/25 07/18/25 History docusate sodium 100 mg capsule 100 mg PO BID 07/23/25 07/23/25 Unknown History haloperidol 10 mg tablet 10 mg PO BEDTIME 07/23/25 07/23/25 Unknown History haloperidol 5 mg tablet 5 mg PO BID 07/23/25 07/23/25 Unknown History hydrochlorothiazide 12.5 mg tablet 12.5 mg PO DAILY 07/23/25 07/23/25 Unknown History mirtazapine 15 mg tablet 15 mg PO BEDTIME 07/23/25 07/23/25 Unknown History Physical Exam Vital Signs and Narrative: Vital Signs: Last Vital Signs Temp 96.7 F L 07/24/25 08:00 Pulse 86 07/24/25 08:00 Resp 16 07/24/25 08:00 BP 142/70 H 07/24/25 08:00 Pulse Ox 95 07/24/25 08:00 O2 Del Method Room Air 07/24/25 08:00 BMI result Body Mass Index 39.0 Assessment and Plan (1) Hypertension: Status: Acute (2) Hyperlipidemia: Status: Acute (3) Type 2 diabetes mellitus: Status: Acute Plan 49-year-old female past medical history of hypertension, type 2 diabetes, major depressive disorder, PTSD, history of suicidal ideation, borderline personality disorder, and GERD, presented to the ED with intentional ingestion of nail Tristanian remover She is admitted to inpatient psych for further care. Major depressive disorder/ PTSD/borderline personality disorder/history of suicidal ideation/auditory and visual hallucinations/intentional ingestion Treatment per psychiatric team Hypertension/HLD Continue amlodipine 5 mg daily, HCTZ 12.5 mg daily Follow labs Continue statin Type 2 diabetes Continue metformin Last A1c in May was 6.2 Thank you for allowing me to participate in the care of this patient. Please consult with any acute concerns or issues. Hypertension Continue on amlodipine and hydrochlorothiazide Prediabetes Metformin on hold pending A1c and LFTs Encouraged dietary compliance Thank you for allowing me to participate in the care of this patient. Will follow with you, please notify medical provider with any changes in condition or concerns.
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
[2025-07-24 20:00] VITALS: BP 128/60; PULSE 99; RESP 20; TEMP 37.1; O2SAT 97
[2025-07-24 20:08] VITALS: BP 147/76
[2025-07-25 07:55] VITALS: BP 81/45; PULSE 90; TEMP 2.4; TEMP 36.4; O2SAT 93
[2025-07-25 10:50] VITALS: BP 108/57
--- NOTE | 2025-07-25 11:18 | P.PNPSI_ITS ---
Subjective Subjective Date of Service: 07/25/25 Reason For Visit: PTSD,borderline personality disorder Interim History: Met with patient; discussed with team Patient mostly lying in bed by herself throughout the day; says she has auditory hallucinations during the day which she getting more but at nighttime it gets very difficult to do so. Patient does not want to adjust Clozaril dose at this time. She is still feeling back to her regular self and is asking for discharge next week Mental Status Exam Mental Status Exam Narrative: Pt is alert and oriented; behavior is isolative, calm; patient is not in distress; desheveled, dressed in casual attire with unkempt hair; mood is described as depressed and affect congruent, with minimal eye contact; Speech is normal rate, volume and prosody and not pressured; psychomotor retardation present; thought process is organized and goal directed but concrete. Thought content is on dealing with voices, discharge; no paranoid ideations expressed; denies any SI/HI. AH predominantly at night Patients insight and judgment impaired but likely close to baseline Diagnostics Vital Signs (24Hr): Vital Signs - 24 hr 07/24/25 20:00 07/24/25 20:08 07/25/25 07:55 Temperature 98.7 F 36.4 F L Pulse Rate 99 90 Respiratory Rate 20 Blood Pressure 128/60 147/76 H 81/45 L Pulse Oximetry 97 93 Oxygen Delivery Method Room Air Room Air 07/25/25 10:50 Temperature Pulse Rate Respiratory Rate Blood Pressure 108/57 L Pulse Oximetry Oxygen Delivery Method BMI result Body Mass Index 39.0 Medications Medications Current Medications Acetaminophen (Acetaminophen 325 Mg Tablet) 650 mg PO Q6H PRN PRN Reason: Headache/Pain, Scale 1-10 Al Hydroxide/Mg Hydroxide (Magnesium Hydrox/Alum Hydrox 30 Ml Oral.Susp) 30 ml PO Q6H PRN PRN Reason: Heartburn/Nausea Albuterol Sulfate (Albuterol Sulfate 90 Mcg 8 Gm Inhaler) 2 puff INHALE Q6H PRN PRN Reason: Wheezing Amlodipine Besylate (Amlodipine Besylate 5 Mg Tablet) 5 mg PO DAILY [facility]; Protocol Last Admin: 07/25/25 09:47 Dose: Not Given Ascorbic Acid (Ascorbic Acid 500 Mg Tablet) 500 mg PO BID [facility] Last Admin: 07/25/25 08:51 Dose: 500 mg Atorvastatin Calcium (Atorvastatin Calcium 10 Mg Tablet) 10 mg PO DAILY [facility] Last Admin: 07/25/25 08:51 Dose: 10 mg Benztropine Mesylate (Benztropine Mesylate 1 Mg Tablet) 1 mg PO BID [facility] Last Admin: 07/25/25 08:51 Dose: 1 mg Buspirone HCl (Buspirone Hcl 10 Mg Tablet) 10 mg PO BID [facility] Last Admin: 07/25/25 08:51 Dose: 10 mg Clozapine (Clozapine 100 Mg Tablet) 200 mg PO BEDTIME [facility] Last Admin: 07/24/25 20:05 Dose: 200 mg Docusate Sodium (Docusate Sodium 100 Mg Capsule) 100 mg PO BID [facility] Last Admin: 07/25/25 08:51 Dose: 100 mg Haloperidol (Haloperidol 5 Mg Tablet) 5 mg PO BID@0900,1500 [facility] Last Admin: 07/25/25 08:51 Dose: 5 mg Haloperidol (Haloperidol 5 Mg Tablet) 15 mg PO BEDTIME [facility] Last Admin: 07/24/25 20:06 Dose: 15 mg Haloperidol (Haloperidol 5 Mg Tablet) 10 mg PO BEDTIME [facility] Last Admin: 07/24/25 20:07 Dose: 10 mg Hydrochlorothiazide (Hydrochlorothiazide 12.5 Mg Tablet) 12.5 mg PO DAILY [facility]; Protocol Last Admin: 07/25/25 09:49 Dose: Not Given Hydrochlorothiazide (Hydrochlorothiazide 12.5 Mg Tablet) 12.5 mg PO DAILY [facility]; Protocol Last Admin: 07/25/25 09:49 Dose: Not Given Hydroxyzine HCl (Hydroxyzine Hcl 25 Mg Tablet) 25 mg PO Q6H PRN PRN Reason: mild anxiety Last Admin: 07/24/25 20:53 Dose: 25 mg Lorazepam (Lorazepam 0.5 Mg Tablet) 0.5 mg PO BID PRN PRN Reason: Anxiety Magnesium Hydroxide (Milk Of Magnesia 30 Ml Oral.Susp) 30 ml PO DAILY PRN PRN Reason: Constipation Metformin HCl (Metformin Hcl 500 Mg Tablet) 500 mg PO BID [facility] Last Admin: 07/25/25 08:51 Dose: 500 mg Mirtazapine (Mirtazapine 15 Mg Tablet) 15 mg PO BEDTIME [facility] Last Admin: 07/24/25 20:05 Dose: 15 mg Mirtazapine (Mirtazapine 15 Mg Tablet) 15 mg PO BEDTIME [facility] Last Admin: 07/24/25 20:08 Dose: 15 mg Nicotine Polacrilex (Nicotine Polacrilex 2 Mg Gum) 4 mg BUCCAL Q2H PRN PRN Reason: Nicotine Cravings Prazosin HCl (Prazosin Hcl 1 Mg Capsule) 4 mg PO BEDTIME [facility]; Protocol Last Admin: 07/24/25 20:08 Dose: 4 mg Temazepam (Temazepam 15 Mg Capsule) 15 mg PO BEDTIME PRN PRN Reason: Insomnia Last Admin: 07/24/25 20:53 Dose: 15 mg Trazodone HCl (Trazodone Hcl 50 Mg Tablet) 50 mg PO BEDTIME MRX1 PRN PRN Reason: Insomnia Last Admin: 07/24/25 20:53 Dose: 50 mg Allergies Allergies Allergy/AdvReac Type Severity Reaction Status Date / Time azithromycin (AZITHROMYCIN) Allergy Severe Rash Verified 07/18/25 21:39 Fish Containing Products Allergy Severe Anaphylaxis Verified 07/18/25 21:39 codeine (Codeine) Allergy Intermediate Rash Verified 07/18/25 21:39 Penicillins Allergy Intermediate Rash Verified 07/18/25 21:39 prednisone (Prednisone) Allergy Intermediate Rash Verified 07/18/25 21:39 Sulfa (Sulfonamide Allergy Intermediate Rash Verified 07/18/25 21:39 Antibiotics) (Sulfa (Sulfonamides)) ziprasidone (From Geodon) Allergy Intermediate dysuria, Verified 07/18/25 21:39 rash lithium Allergy Unknown Rash Verified 07/18/25 21:39 Assessment & Plan Assessment & Plan (1) Chronic post-traumatic stress disorder (PTSD): Status: Acute Code(s): F43.12 - Post-traumatic stress disorder, chronic (2) Borderline personality disorder: Status: Acute Code(s): F60.3 - Borderline personality disorder (3) Depression, major, recurrent, severe with psychosis: Status: Acute Code(s): F33.3 - Major depressive disorder, recurrent, severe with psychotic symptoms Plan HPI: Pt is a 49 yo female, lives in [place], with hx of PTSD, depression, borderline personality disorder, auditory hallucinations, with uncountable of hospital admissions and ED presentations and well-known to [facility], who presents following intentional suicide attempt of swallowing nail [place] remover. Patient says that she has been overall doing well and she thinks it is because she was started on Clozaril. She has been out of the hospital ED for close to a month which is a significant achievement. Patient says she does not know what triggered her but that she also sudden felt suicidal and so she ingested the product. She says otherwise SI as over and she denies AH. She says she does not feel overly depressed. Discussed correction and patient likes her new situation. Formulation/clinical reasoning: Patient seems to have been doing quite well this past month having hardly presented to the ED. She is not sure what triggered her suicidality but that is not unusual for her. She reports that she is now back to baseline and would like to return home. She understands the need to demonstrate stability. Thinks medication regimen is helping, specifically Clozaril. Generally patient requires only short hospital stays; will monitor and if she remains stable will proceed with discharge planning Hospital course: 07/25 today patient appears more depressed. Patient mostly lying in bed by herself throughout the day; says she has auditory hallucinations during the day which she getting more but at nighttime it gets very difficult to do so. Patient does not want to adjust Clozaril dose at this time. She is still feeling back to her regular self and is asking for discharge next week Plan: CV Q 15 minute checks Continue home medication Gather collateral from correction Patient educated on: diagnosis, medication risk/benefits and therapeutic strategies Informed Consent: understands Reason for continued inpatient stay Substantial Risk for: rapid decompensation Time Spent With Patient Time: Total time managing care of this patient today ____ minutes.
[2025-07-25 20:00] VITALS: BP 135/89; PULSE 115; RESP 18; TEMP 36.4; O2SAT 95
[2025-07-25 21:00] VITALS: BP 135/89
[2025-07-26 08:46] LABS: Creatinine Clr Calc Pharmacy 128.9; Estimated Glomerular Filt Rate > 60
[2025-07-26 09:45] VITALS: BP 87/51; PULSE 93; RESP 16; TEMP 36.5; O2SAT 93
[2025-07-26 11:52] VITALS: BP 128/78
[2025-07-26 11:53] VITALS: BP 128/78
[2025-07-26 12:35] VITALS: BP 128/78; PULSE 114; RESP 18; O2SAT 95
--- NOTE | 2025-07-26 16:09 | P.PNPSI_ITS ---
Subjective Subjective Date of Service: 07/26/25 Reason For Visit: PTSD,borderline personality disorder Interim History: Met with patient; discussed with team Patient reports that she is doing okay and feels back to her regular self. Denies any SI. Coping with intermittent AH Mental Status Exam Mental Status Exam Narrative: Pt is alert and oriented; behavior is isolative, calm; patient is not in distress; desheveled, dressed in casual attire with unkempt hair; mood is described as okay and affect congruent, little brighter, adequate eye contact; Speech is normal rate, volume and prosody and not pressured; psychomotor retardation present; thought process is organized and goal directed but concrete. Thought content is on dealing with voices, discharge; no paranoid ideations expressed; denies any SI/HI. AH predominantly at night Patients insight and judgment impaired but likely close to baseline Diagnostics Vital Signs (24Hr): Vital Signs - 24 hr 07/25/25 20:00 07/25/25 21:00 07/26/25 09:45 Temperature 97.5 F 97.7 F Pulse Rate 115 H 93 Respiratory Rate 18 16 Blood Pressure 135/89 135/89 87/51 L Pulse Oximetry 95 93 Oxygen Delivery Method Room Air Room Air 07/26/25 11:52 07/26/25 11:53 07/26/25 12:35 Temperature Pulse Rate 114 H Respiratory Rate 18 Blood Pressure 128/78 128/78 128/78 Pulse Oximetry 95 Oxygen Delivery Method Room Air BMI result Body Mass Index 39.0 Labs 07/26/25 08:03 Labs: Laboratory Results - last 48 hr 07/26/25 08:03 Creatinine 0.63 Estim Creat Clear Calc 128.9 Estimated GFR > 60 Medications Medications Current Medications Acetaminophen (Acetaminophen 325 Mg Tablet) 650 mg PO Q6H PRN PRN Reason: Headache/Pain, Scale 1-10 Al Hydroxide/Mg Hydroxide (Magnesium Hydrox/Alum Hydrox 30 Ml Oral.Susp) 30 ml PO Q6H PRN PRN Reason: Heartburn/Nausea Albuterol Sulfate (Albuterol Sulfate 90 Mcg 8 Gm Inhaler) 2 puff INHALE Q6H PRN PRN Reason: Wheezing Amlodipine Besylate (Amlodipine Besylate 5 Mg Tablet) 5 mg PO DAILY [facility]; Protocol Last Admin: 07/26/25 11:52 Dose: 5 mg Ascorbic Acid (Ascorbic Acid 500 Mg Tablet) 500 mg PO BID [facility] Last Admin: 07/26/25 09:59 Dose: 500 mg Atorvastatin Calcium (Atorvastatin Calcium 10 Mg Tablet) 10 mg PO DAILY [facility] Last Admin: 07/26/25 09:58 Dose: 10 mg Benztropine Mesylate (Benztropine Mesylate 1 Mg Tablet) 1 mg PO BID [facility] Last Admin: 07/26/25 09:59 Dose: 1 mg Buspirone HCl (Buspirone Hcl 10 Mg Tablet) 10 mg PO BID [facility] Last Admin: 07/26/25 09:59 Dose: 10 mg Clozapine (Clozapine 100 Mg Tablet) 200 mg PO BEDTIME [facility] Last Admin: 07/25/25 21:01 Dose: 200 mg Docusate Sodium (Docusate Sodium 100 Mg Capsule) 100 mg PO BID [facility] Last Admin: 07/26/25 09:58 Dose: 100 mg Haloperidol (Haloperidol 5 Mg Tablet) 5 mg PO BID@0900,1500 [facility] Last Admin: 07/26/25 15:22 Dose: 5 mg Haloperidol (Haloperidol 5 Mg Tablet) 15 mg PO BEDTIME [facility] Last Admin: 07/25/25 21:02 Dose: 15 mg Haloperidol (Haloperidol 5 Mg Tablet) 10 mg PO BEDTIME [facility] Last Admin: 07/25/25 21:02 Dose: 10 mg Hydrochlorothiazide (Hydrochlorothiazide 12.5 Mg Tablet) 12.5 mg PO DAILY [facility]; Protocol Last Admin: 07/26/25 11:53 Dose: 12.5 mg Hydroxyzine HCl (Hydroxyzine Hcl 25 Mg Tablet) 25 mg PO Q6H PRN PRN Reason: mild anxiety Last Admin: 07/26/25 15:22 Dose: 25 mg Lorazepam (Lorazepam 0.5 Mg Tablet) 0.5 mg PO BID PRN PRN Reason: Anxiety Last Admin: 07/26/25 09:58 Dose: 0.5 mg Magnesium Hydroxide (Milk Of Magnesia 30 Ml Oral.Susp) 30 ml PO DAILY PRN PRN Reason: Constipation Metformin HCl (Metformin Hcl 500 Mg Tablet) 500 mg PO BID [facility] Last Admin: 07/26/25 09:59 Dose: 500 mg Mirtazapine (Mirtazapine 15 Mg Tablet) 15 mg PO BEDTIME [facility] Last Admin: 07/25/25 21:01 Dose: 15 mg Mirtazapine (Mirtazapine 15 Mg Tablet) 15 mg PO BEDTIME [facility] Last Admin: 07/25/25 21:01 Dose: 15 mg Nicotine Polacrilex (Nicotine Polacrilex 2 Mg Gum) 4 mg BUCCAL Q2H PRN PRN Reason: Nicotine Cravings Prazosin HCl (Prazosin Hcl 1 Mg Capsule) 4 mg PO BEDTIME [facility]; Protocol Last Admin: 07/25/25 21:00 Dose: 4 mg Temazepam (Temazepam 15 Mg Capsule) 15 mg PO BEDTIME PRN PRN Reason: Insomnia Last Admin: 07/24/25 20:53 Dose: 15 mg Trazodone HCl (Trazodone Hcl 50 Mg Tablet) 50 mg PO BEDTIME MRX1 PRN PRN Reason: Insomnia Last Admin: 07/24/25 20:53 Dose: 50 mg Allergies Allergies Allergy/AdvReac Type Severity Reaction Status Date / Time azithromycin (AZITHROMYCIN) Allergy Severe Rash Verified 07/18/25 21:39 Fish Containing Products Allergy Severe Anaphylaxis Verified 07/18/25 21:39 codeine (Codeine) Allergy Intermediate Rash Verified 07/18/25 21:39 Penicillins Allergy Intermediate Rash Verified 07/18/25 21:39 prednisone (Prednisone) Allergy Intermediate Rash Verified 07/18/25 21:39 Sulfa (Sulfonamide Allergy Intermediate Rash Verified 07/18/25 21:39 Antibiotics) (Sulfa (Sulfonamides)) ziprasidone (From Geodon) Allergy Intermediate dysuria, Verified 07/18/25 21:39 rash lithium Allergy Unknown Rash Verified 07/18/25 21:39 Assessment & Plan Assessment & Plan (1) Chronic post-traumatic stress disorder (PTSD): Status: Acute Code(s): F43.12 - Post-traumatic stress disorder, chronic (2) Borderline personality disorder: Status: Acute Code(s): F60.3 - Borderline personality disorder (3) Depression, major, recurrent, severe with psychosis: Status: Acute Code(s): F33.3 - Major depressive disorder, recurrent, severe with psychotic symptoms Plan HPI: Pt is a 49 yo female, lives in [facility], with hx of PTSD, depression, borderline personality disorder, auditory hallucinations, with uncountable of hospital admissions and ED presentations and well-known to [facility], who presents following intentional suicide attempt of swallowing nail [place] remover. Patient says that she has been overall doing well and she thinks it is because she was started on Clozaril. She has been out of the hospital ED for close to a month which is a significant achievement. Patient says she does not know what triggered her but that she also sudden felt suicidal and so she ingested the product. She says otherwise SI as over and she denies AH. She says she does not feel overly depressed. Discussed detention and patient likes her new situation. Formulation/clinical reasoning: Patient seems to have been doing quite well this past month having hardly presented to the ED. She is not sure what triggered her suicidality but that is not unusual for her. She reports that she is now back to baseline and would like to return home. She understands the need to demonstrate stability. Thinks medication regimen is helping, specifically Clozaril. Generally patient requires only short hospital stays; will monitor and if she remains stable will proceed with discharge planning Hospital course: 07/25 today patient appears more depressed. Patient mostly lying in bed by herself throughout the day; says she has auditory hallucinations during the day which she getting more but at nighttime it gets very difficult to do so. Patient does not want to adjust Clozaril dose at this time. She is still feeling back to her regular self and is asking for discharge next week 07/26 continue current treatment plan; likely close to baseline Plan: CV Q 15 minute checks Continue home medication Gather collateral from detention Patient educated on: diagnosis Informed Consent: understands Reason for continued inpatient stay Substantial Risk for: rapid decompensation Time Spent With Patient Time: Total time managing care of this patient today ____ minutes.
[2025-07-26 20:00] VITALS: BP 166/100; PULSE 91; RESP 20; TEMP 36.6; O2SAT 96
[2025-07-26 21:19] VITALS: BP 166/100
[2025-07-27] MEDS: Magnesium Hydrox/Alum Hydrox 30 ML ORAL.SUSP PO ×2 (02:32→20:14)
[2025-07-27 08:19] VITALS: BP 130/78; PULSE 91; RESP 98; TEMP 36.6; O2SAT 98
[2025-07-27 08:31] VITALS: BP 130/78
[2025-07-27 08:32] VITALS: BP 130/78
--- NOTE | 2025-07-27 12:48 | P.PNPSI_ITS ---
Subjective Subjective Date of Service: 07/27/25 Reason For Visit: PTSD,borderline personality disorder Interim History: Patient reports that she is all right and feels like a regular self; wants to go back to [facility]. Complains of heartburn and agrees to famotidine Mental Status Exam Mental Status Exam Narrative: Pt is alert and oriented; behavior is isolative, calm; patient is not in distress; desheveled, dressed in casual attire with unkempt hair; mood is described as all right and affect congruent, little brighter, adequate eye contact; Speech is normal rate, volume and prosody and not pressured; psychomotor retardation present; thought process is organized and goal directed but concrete. Thought content is on dealing with voices, discharge; no paranoid ideations expressed; denies any SI/HI. AH predominantly at night Patients insight and judgment adequate and at baseline Diagnostics Vital Signs (24Hr): Vital Signs - 24 hr 07/26/25 20:00 07/26/25 21:19 07/27/25 08:19 Temperature 97.8 F 98 F Pulse Rate 91 91 Respiratory Rate 20 98 H Blood Pressure 166/100 H 166/100 H 130/78 Pulse Oximetry 96 98 Oxygen Delivery Method Room Air Room Air 07/27/25 08:31 07/27/25 08:32 Temperature Pulse Rate Respiratory Rate Blood Pressure 130/78 130/78 Pulse Oximetry Oxygen Delivery Method BMI result Body Mass Index 39.0 Labs 07/26/25 08:03 Labs: Laboratory Results - last 48 hr 07/26/25 08:03 Creatinine 0.63 Estim Creat Clear Calc 128.9 Estimated GFR > 60 Medications Medications Current Medications Acetaminophen (Acetaminophen 325 Mg Tablet) 650 mg PO Q6H PRN PRN Reason: Headache/Pain, Scale 1-10 Last Admin: 07/26/25 21:40 Dose: 650 mg Al Hydroxide/Mg Hydroxide (Magnesium Hydrox/Alum Hydrox 30 Ml Oral.Susp) 30 ml PO Q6H PRN PRN Reason: Heartburn/Nausea Last Admin: 07/27/25 02:32 Dose: 30 ml Albuterol Sulfate (Albuterol Sulfate 90 Mcg 8 Gm Inhaler) 2 puff INHALE Q6H PRN PRN Reason: Wheezing Amlodipine Besylate (Amlodipine Besylate 5 Mg Tablet) 5 mg PO DAILY [facility]; Protocol Last Admin: 07/27/25 08:32 Dose: 5 mg Ascorbic Acid (Ascorbic Acid 500 Mg Tablet) 500 mg PO BID [facility] Last Admin: 07/27/25 08:32 Dose: 500 mg Atorvastatin Calcium (Atorvastatin Calcium 10 Mg Tablet) 10 mg PO DAILY [facility] Last Admin: 07/27/25 08:31 Dose: 10 mg Benztropine Mesylate (Benztropine Mesylate 1 Mg Tablet) 1 mg PO BID [facility] Last Admin: 07/27/25 08:32 Dose: 1 mg Buspirone HCl (Buspirone Hcl 10 Mg Tablet) 10 mg PO BID [facility] Last Admin: 07/27/25 08:32 Dose: 10 mg Clozapine (Clozapine 100 Mg Tablet) 200 mg PO BEDTIME [facility] Last Admin: 07/26/25 21:21 Dose: 200 mg Docusate Sodium (Docusate Sodium 100 Mg Capsule) 100 mg PO BID [facility] Last Admin: 07/27/25 08:32 Dose: 100 mg Famotidine (Famotidine 20 Mg Tablet) 20 mg PO BID [facility] Last Admin: 07/27/25 12:12 Dose: 20 mg Haloperidol (Haloperidol 5 Mg Tablet) 5 mg PO BID@0900,1500 [facility] Last Admin: 07/27/25 08:32 Dose: 5 mg Haloperidol (Haloperidol 5 Mg Tablet) 15 mg PO BEDTIME [facility] Last Admin: 07/26/25 21:20 Dose: 15 mg Haloperidol (Haloperidol 5 Mg Tablet) 10 mg PO BEDTIME [facility] Last Admin: 07/26/25 21:21 Dose: 10 mg Hydrochlorothiazide (Hydrochlorothiazide 12.5 Mg Tablet) 12.5 mg PO DAILY [facility]; Protocol Last Admin: 07/27/25 08:31 Dose: 12.5 mg Hydroxyzine HCl (Hydroxyzine Hcl 25 Mg Tablet) 25 mg PO Q6H PRN PRN Reason: mild anxiety Last Admin: 07/26/25 15:22 Dose: 25 mg Lorazepam (Lorazepam 0.5 Mg Tablet) 0.5 mg PO BID PRN PRN Reason: Anxiety Last Admin: 07/26/25 09:58 Dose: 0.5 mg Magnesium Hydroxide (Milk Of Magnesia 30 Ml Oral.Susp) 30 ml PO DAILY PRN PRN Reason: Constipation Metformin HCl (Metformin Hcl 500 Mg Tablet) 500 mg PO BID [facility] Last Admin: 07/27/25 08:33 Dose: 500 mg Mirtazapine (Mirtazapine 15 Mg Tablet) 15 mg PO BEDTIME [facility] Last Admin: 07/26/25 21:20 Dose: 15 mg Mirtazapine (Mirtazapine 15 Mg Tablet) 15 mg PO BEDTIME [facility] Last Admin: 07/26/25 21:43 Dose: 15 mg Nicotine Polacrilex (Nicotine Polacrilex 2 Mg Gum) 4 mg BUCCAL Q2H PRN PRN Reason: Nicotine Cravings Prazosin HCl (Prazosin Hcl 1 Mg Capsule) 4 mg PO BEDTIME [facility]; Protocol Last Admin: 07/26/25 21:19 Dose: 4 mg Temazepam (Temazepam 15 Mg Capsule) 15 mg PO BEDTIME PRN PRN Reason: Insomnia Last Admin: 07/24/25 20:53 Dose: 15 mg Trazodone HCl (Trazodone Hcl 50 Mg Tablet) 50 mg PO BEDTIME MRX1 PRN PRN Reason: Insomnia Last Admin: 07/24/25 20:53 Dose: 50 mg Allergies Allergies Allergy/AdvReac Type Severity Reaction Status Date / Time azithromycin (AZITHROMYCIN) Allergy Severe Rash Verified 07/18/25 21:39 Fish Containing Products Allergy Severe Anaphylaxis Verified 07/18/25 21:39 codeine (Codeine) Allergy Intermediate Rash Verified 07/18/25 21:39 Penicillins Allergy Intermediate Rash Verified 07/18/25 21:39 prednisone (Prednisone) Allergy Intermediate Rash Verified 07/18/25 21:39 Sulfa (Sulfonamide Allergy Intermediate Rash Verified 07/18/25 21:39 Antibiotics) (Sulfa (Sulfonamides)) ziprasidone (From Geodon) Allergy Intermediate dysuria, Verified 07/18/25 21:39 rash lithium Allergy Unknown Rash Verified 07/18/25 21:39 Assessment & Plan Assessment & Plan (1) Chronic post-traumatic stress disorder (PTSD): Status: Acute Code(s): F43.12 - Post-traumatic stress disorder, chronic (2) Borderline personality disorder: Status: Acute Code(s): F60.3 - Borderline personality disorder (3) Depression, major, recurrent, severe with psychosis: Status: Acute Code(s): F33.3 - Major depressive disorder, recurrent, severe with psychotic symptoms Plan HPI: Pt is a 49 yo female, [facility], with hx of PTSD, depression, borderline personality disorder, auditory hallucinations, with uncountable of hospital admissions and ED presentations and well-known to [facility], who presents following intentional suicide attempt of swallowing nail [place] remover. Patient says that she has been overall doing well and she thinks it is because she was started on Clozaril. She has been out of the hospital ED for close to a month which is a significant achievement. Patient says she does not know what triggered her but that she also sudden felt suicidal and so she ingested the product. She says otherwise SI as over and she denies AH. She says she does not feel overly depressed. Discussed [facility] and patient likes her new situation. Formulation/clinical reasoning: Patient seems to have been doing quite well this past month having hardly presented to the ED. She is not sure what triggered her suicidality but that is not unusual for her. She reports that she is now back to baseline and would like to return home. She understands the need to demonstrate stability. Thinks medication regimen is helping, specifically Clozaril. Generally patient requires only short hospital stays; will monitor and if she remains stable will proceed with discharge planning Hospital course: 07/25 today patient appears more depressed. Patient mostly lying in bed by herself throughout the day; says she has auditory hallucinations during the day which she getting more but at nighttime it gets very difficult to do so. Patient does not want to adjust Clozaril dose at this time. She is still feeling back to her regular self and is asking for discharge next week 07/26 continue current treatment plan; likely close to baseline 07/27 continue current treatment plan; patient remained stable; will start to organized dispo with [facility] -adding famotidine for GERD Plan: CV Q 15 minute checks Continue home medication Gather collateral from [facility] Patient educated on: diagnosis and medical condition Informed Consent: understands Reason for continued inpatient stay Substantial Risk for: rapid decompensation Time Spent With Patient Time: Total time managing care of this patient today ____ minutes.
[2025-07-27 20:00] VITALS: BP 151/90; PULSE 110; RESP 16; TEMP 36.3; O2SAT 96
[2025-07-27 21:53] VITALS: BP 154/90
[2025-07-28 08:23] VITALS: BP 164/89; PULSE 92; RESP 16; TEMP 35.9; O2SAT 94
--- NOTE | 2025-07-28 09:31 | HO.PSYCHPN ---
Subjective Subjective Date of Service: 07/28/25 Reason For Visit: PTSD,borderline personality disorder Interim History: met with patient; discussed with team pt very much wants to dc; she says her symptoms always gets worse the day before she discharges and says AH is acting up. Patient says that Haldol and Ativan are helping Mental Status Exam Mental Status Exam Narrative: Pt is alert and oriented; behavior is isolative, calm; patient is not in distress; desheveled, dressed in casual attire with unkempt hair; mood is described as not good and affect congruent, little brighter, adequate eye contact; Speech is normal rate, volume and prosody and not pressured; psychomotor retardation present; thought process is organized and goal directed but concrete. Thought content is on dealing with voices, discharge; no paranoid ideations expressed; denies any SI/HI. AH predominantly at night Patients insight and judgment adequate and at baseline Diagnostics Vital Signs (24Hr): Vital Signs - 24 hr 07/27/25 20:00 07/27/25 21:53 07/28/25 08:23 Temperature 97.3 F 96.7 F L Pulse Rate 110 H 92 Respiratory Rate 16 16 Blood Pressure 151/90 H 154/90 H 164/89 H Pulse Oximetry 96 94 Oxygen Delivery Method Room Air Room Air BMI result Body Mass Index 39.0 Labs 07/26/25 08:03 Medications Medications Current Medications Acetaminophen (Acetaminophen 325 Mg Tablet) 650 mg PO Q6H PRN PRN Reason: Headache/Pain, Scale 1-10 Last Admin: 07/26/25 21:40 Dose: 650 mg Al Hydroxide/Mg Hydroxide (Magnesium Hydrox/Alum Hydrox 30 Ml Oral.Susp) 30 ml PO Q6H PRN PRN Reason: Heartburn/Nausea Last Admin: 07/27/25 20:14 Dose: 30 ml Albuterol Sulfate (Albuterol Sulfate 90 Mcg 8 Gm Inhaler) 2 puff INHALE Q6H PRN PRN Reason: Wheezing Amlodipine Besylate (Amlodipine Besylate 5 Mg Tablet) 5 mg PO DAILY [facility]; Protocol Last Admin: 07/28/25 08:27 Dose: 5 mg Ascorbic Acid (Ascorbic Acid 500 Mg Tablet) 500 mg PO BID [facility] Last Admin: 07/28/25 08:27 Dose: 500 mg Atorvastatin Calcium (Atorvastatin Calcium 10 Mg Tablet) 10 mg PO DAILY [facility] Last Admin: 07/28/25 08:28 Dose: 10 mg Benztropine Mesylate (Benztropine Mesylate 1 Mg Tablet) 1 mg PO BID [facility] Last Admin: 07/28/25 08:27 Dose: 1 mg Buspirone HCl (Buspirone Hcl 10 Mg Tablet) 10 mg PO BID [facility]UL[facility] Last Admin: 07/28/25 08:26 Dose: 10 mg Clozapine (Clozapine 100 Mg Tablet) 200 mg PO BEDTIME [facility]ULY Last Admin: 07/27/25 21:22 Dose: 200 mg Docusate Sodium (Docusate Sodium 100 Mg Capsule) 100 mg PO BID [facility]UL[facility] Last Admin: 07/28/25 08:28 Dose: 100 mg Famotidine (Famotidine 20 Mg Tablet) 20 mg PO BID [facility]ULY Last Admin: 07/28/25 08:27 Dose: 20 mg Haloperidol (Haloperidol 5 Mg Tablet) 5 mg PO BID@0900,1500 [facility] Last Admin: 07/28/25 08:27 Dose: 5 mg Haloperidol (Haloperidol 5 Mg Tablet) 15 mg PO BEDTIME [facility]UL[facility] Last Admin: 07/27/25 21:54 Dose: 15 mg Haloperidol (Haloperidol 5 Mg Tablet) 10 mg PO BEDTIME [facility]UL[facility] Last Admin: 07/27/25 21:54 Dose: 10 mg Hydrochlorothiazide (Hydrochlorothiazide 12.5 Mg Tablet) 12.5 mg PO DAILY [facility]; Protocol Last Admin: 07/28/25 08:26 Dose: 12.5 mg Hydroxyzine HCl (Hydroxyzine Hcl 25 Mg Tablet) 25 mg PO Q6H PRN PRN Reason: mild anxiety Last Admin: 07/27/25 17:48 Dose: 25 mg Lorazepam (Lorazepam 0.5 Mg Tablet) 0.5 mg PO BID PRN PRN Reason: Anxiety Last Admin: 07/27/25 17:48 Dose: 0.5 mg Magnesium Hydroxide (Milk Of Magnesia 30 Ml Oral.Susp) 30 ml PO DAILY PRN PRN Reason: Constipation Metformin HCl (Metformin Hcl 500 Mg Tablet) 500 mg PO BID YULY Last Admin: 07/28/25 08:26 Dose: 500 mg Mirtazapine (Mirtazapine 15 Mg Tablet) 15 mg PO BEDTIME [facility]UL[facility] Last Admin: 07/27/25 21:22 Dose: 15 mg Mirtazapine (Mirtazapine 15 Mg Tablet) 15 mg PO BEDTIME YULY Last Admin: 07/27/25 21:23 Dose: 15 mg Nicotine Polacrilex (Nicotine Polacrilex 2 Mg Gum) 4 mg BUCCAL Q2H PRN PRN Reason: Nicotine Cravings Prazosin HCl (Prazosin Hcl 1 Mg Capsule) 4 mg PO BEDTIME [facility]; Protocol Last Admin: 07/27/25 21:53 Dose: 4 mg Temazepam (Temazepam 15 Mg Capsule) 15 mg PO BEDTIME PRN PRN Reason: Insomnia Last Admin: 07/24/25 20:53 Dose: 15 mg Trazodone HCl (Trazodone Hcl 50 Mg Tablet) 50 mg PO BEDTIME MRX1 PRN PRN Reason: Insomnia Last Admin: 07/27/25 21:55 Dose: 50 mg Allergies Allergies Allergy/AdvReac Type Severity Reaction Status Date / Time azithromycin (AZITHROMYCIN) Allergy Severe Rash Verified 07/18/25 21:39 Fish Containing Products Allergy Severe Anaphylaxis Verified 07/18/25 21:39 codeine (Codeine) Allergy Intermediate Rash Verified 07/18/25 21:39 Penicillins Allergy Intermediate Rash Verified 07/18/25 21:39 prednisone (Prednisone) Allergy Intermediate Rash Verified 07/18/25 21:39 Sulfa (Sulfonamide Allergy Intermediate Rash Verified 07/18/25 21:39 Antibiotics) (Sulfa (Sulfonamides)) ziprasidone (From Geodon) Allergy Intermediate dysuria, Verified 07/18/25 21:39 rash lithium Allergy Unknown Rash Verified 07/18/25 21:39 Assessment & Plan Assessment & Plan (1) Chronic post-traumatic stress disorder (PTSD): Status: Acute Code(s): F43.12 - Post-traumatic stress disorder, chronic (2) Borderline personality disorder: Status: Acute Code(s): F60.3 - Borderline personality disorder (3) Depression, major, recurrent, severe with psychosis: Status: Acute Code(s): F33.3 - Major depressive disorder, recurrent, severe with psychotic symptoms Plan HPI: Pt is a 49 yo female, lives in long term, with hx of PTSD, depression, borderline personality disorder, auditory hallucinations, with uncountable of hospital admissions and ED presentations and well-known to [facility], who presents following intentional suicide attempt of swallowing nail [place] remover. Patient says that she has been overall doing well and she thinks it is because she was started on Clozaril. She has been out of the hospital ED for close to a month which is a significant achievement. Patient says she does not know what triggered her but that she also sudden felt suicidal and so she ingested the product. She says otherwise SI as over and she denies AH. She says she does not feel overly depressed. Discussed pen[facility]iary and patient likes her new situation. Formulation/clinical reasoning: Patient seems to have been doing quite well this past month having hardly presented to the ED. She is not sure what triggered her suicidality but that is not unusual for her. She reports that she is now back to baseline and would like to return home. She understands the need to demonstrate stability. Thinks medication regimen is helping, specifically Clozaril. Generally patient requires only short hospital stays; will monitor and if she remains stable will proceed with discharge planning Hospital course: 07/25 today patient appears more depressed. Patient mostly lying in bed by herself throughout the day; says she has auditory hallucinations during the day which she getting more but at nighttime it gets very difficult to do so. Patient does not want to adjust Clozaril dose at this time. She is still feeling back to her regular self and is asking for discharge next week 07/26 continue current treatment plan; likely close to baseline 07/27 continue current treatment plan; patient remained stable; will start to organized dispo with penitentiary -adding famotidine for GERD 07/28 patient says AH is acting up a little and it typically gets harder for her the night before she discharges. Histology Tech agrees this is comment. Patient remains at baseline and appropriate to return to the community for treatment. Discharge plan for tomorrow Plan: CV Q 15 minute checks Continue home medication Gather collateral from penitentiary Patient educated on: diagnosis, medication risk/benefits and therapeutic strategies Informed Consent: understands Reason for continued inpatient stay Substantial Risk for: stable for discharge Time Spent With Patient Time: Total time managing care of this patient today ____ minutes.
[2025-07-28] MEDS: Magnesium Hydrox/Alum Hydrox 30 ML ORAL.SUSP PO ×2 (15:03→21:17)
[2025-07-28 19:56] VITALS: BP 139/86; PULSE 119; RESP 18; TEMP 36.5; O2SAT 996
[2025-07-28] MEDS: Albuterol Sulfate 90 MCG 8 GM INHALER 2 PUFF INHALE (21:17)
[2025-07-29 08:00] VITALS: BP 125/95; PULSE 103; RESP 18; TEMP 36.8; O2SAT 95
[2025-07-29 08:12] LABS: Neut%MD 57.8 %; WBCANC 6.3 X10*3/uL
--- NOTE | 2025-07-29 11:32 | PM.PSYDC ---
DS: Providers Provider Date of Service: 07/29/25 Date of admission: 07/23/25 21:22 Date of discharge: 07/29/25 Primary care physician: Maribel Marquez NP Attending physician on admission: Jay Reed Attending physician on discharge: Jay Reed DS: Diagnosis Discharge Diagnosis (1) Chronic post-traumatic stress disorder (PTSD): Status: Acute (2) Borderline personality disorder: Status: Acute (3) Depression, major, recurrent, severe with psychosis: Status: Acute DS: Medications Discharge Medications Home Medications: Home Medications ?Medication ?Instructions ?Recorded ?Confirmed albuterol sulfate 90 mcg/actuation 2 puff inhalation Q6H PRN Wheezing 06/24/24 07/23/25 aerosol inhaler clozapine 100 mg tablet 200 mg PO BEDTIME 06/24/24 07/23/25 prazosin 2 mg capsule 4 mg PO BEDTIME 06/24/24 07/23/25 metformin 500 mg tablet 500 mg PO BID 07/15/24 07/23/25 atorvastatin 10 mg tablet 10 mg PO DAILY 05/23/25 07/23/25 lorazepam 0.5 mg tablet 0.5 mg PO BID PRN Anxiety 05/23/25 07/23/25 mirtazapine 15 mg tablet 15 mg PO BEDTIME 05/23/25 07/23/25 ascorbic acid (vitamin C) 500 mg 500 mg PO BID 06/18/25 07/23/25 tablet (Vitamin C) benztropine 1 mg tablet 1 mg PO BID 06/18/25 07/23/25 buspirone 10 mg tablet 10 mg PO BID 06/18/25 07/23/25 temazepam 15 mg capsule 15 mg PO BEDTIME PRN Insomnia 06/18/25 07/23/25 docusate sodium 100 mg capsule 100 mg PO BID 07/23/25 07/23/25 haloperidol 10 mg tablet 10 mg PO BEDTIME 07/23/25 07/23/25 hydrochlorothiazide 12.5 mg tablet 12.5 mg PO DAILY 07/23/25 07/23/25 mirtazapine 15 mg tablet 15 mg PO BEDTIME 07/23/25 07/23/25 Previous Rx's ?Medication ?Instructions ?Recorded amlodipine 2.5 mg tablet 7.5 mg PO DAILY 30 days #90 tabs 06/01/25 haloperidol 5 mg tablet 15 mg (3 x 5 mg) PO BEDTIME 30 06/01/25 days #90 tabs hydrochlorothiazide 12.5 mg tablet 12.5 mg PO DAILY 30 days #30 tabs 06/01/25 haloperidol 5 mg tablet 5 mg PO BID@0900,1500 #60 tabs 06/23/25 famotidine 20 mg tablet 20 mg PO BID 30 days #60 tabs 07/29/25 nicotine 21 mg/24 hr daily 1 patch transdermal DAILY PRN 07/29/25 transdermal patch nicotine cravings 28 days #28 ea Mental Status Exam Mental Status Exam Narrative: Pt is alert and oriented; behavior is more social, calm; patient is not in distress; unkempt, dressed in casual attire with unkempt hair; mood is described as good and affect congruent, brighter, calm; adequate eye contact; Speech is normal rate, volume and prosody and not pressured; no psychomotor retardation present; thought process is organized and goal directed.. Thought content discharge, dealing with symptoms; no paranoid ideations expressed; denies any SI/HI. AH predominantly at night Patients insight and judgment adequate and at baseline Data Data Completed and Pending Completed studies during hospitalization [Text1]: 07/26/25 07/29/25 08:03 08:00 Absolute Neuts (auto) 3.6 Creatinine 0.63 Estim Creat Clear Calc 128.9 Estimated GFR > 60 DS: Summary Hospital Course Hospital Course: HPI: Pt is a 49 yo female, lives in senior care, with hx of PTSD, depression, borderline personality disorder, auditory hallucinations, with uncountable of hospital admissions and ED presentations and well-known to [facility], who presents following intentional suicide attempt of swallowing nail [place] remover. Patient says that she has been overall doing well and she thinks it is because she was started on Clozaril. She has been out of the hospital ED for close to a month which is a significant achievement. Patient says she does not know what triggered her but that she also sudden felt suicidal and so she ingested the product. She says otherwise SI as over and she denies AH. She says she does not feel overly depressed. Discussed jail and patient likes her new situation. Formulation/clinical reasoning: Patient seems to have been doing quite well this past month having hardly presented to the ED. She is not sure what triggered her suicidality but that is not unusual for her. She reports that she is now back to baseline and would like to return home. She understands the need to demonstrate stability. Thinks medication regimen is helping, specifically Clozaril. Generally patient requires only short hospital stays; will monitor and if she remains stable will proceed with discharge planning Hospital course: By the time patient was on the unit, she has seemed pretty close to her baseline and was asking to go back to her jail [facility]. She denied any SI; AH mostly just at night but patient said she is able to tolerate it. Patient remained overall in good behavioral and impulse control during her time in the unit. There were a couple nights when she mildly banged her head in frustration however she was easily redirected. Famotidine was started for GERD and patient asked for a nicotine patch which was also started. Initially was thought that her hydrochlorothiazide was just 12.5 mg daily however patient did become hypotensive says she was discharged back on the home regimen which was 25 mg. Patient felt that 1 reason why she had been doing better was the Clozaril; she said sometimes she finds her hand shaking which seemed to coincide with this new medication but did not want to stop the Clozaril since she found it so helpful. She agreed to discuss this with outpatient provider. Patient remained very much wanting discharge. Patient had returned to baseline. She is returning to her jail which is a supportive and therapeutic environment and staffed 07/05. She was not in imminent risk for harm to self or others and appropriate to return to the community for treatment. Her request for discharge honored. Time spent discussing smoking cessation with patient: 3 to 10 minutes Status at Discharge Functional status at discharge: independent ambulation Overall status at discharge: patient is back to baseline Time Spent with Patient Time attestation: Total time managing care of this patient today _40___ minutes. Time spent: Greater than 30 minutes Specific discharge activities: Met with patient; discussed with team; charting; prescriptions Discharge Plan Discharge Anticipated Discharge Date/Time: 07/29/25 11:16 Patient Disposition: Home, Self-Care Discharge Diagnosis: PTSD Referrals: [facility] [Other] - 07/29/25 12:00 pm [facility] Therapy w Melany Hermosillo [Other] - 08/05/25 9:30 am [facility] Psychiatry w Wanda Cleveland [Other] - 08/12/25 3:20 pm Maribel Marquez [facility] [Primary Care Provider, Medical] - 1 Week Referral Note: Called office. They will call patient back with follow up appointment Discharge Medications: New famotidine 20 mg Tablet 20 mg PO BID 30 Days Qty: 60 0RF nicotine 21 mg/24 hr patch 24 hour 1 patch transdermal DAILY PRN (Reason: nicotine cravings) 28 Days Qty: 28 0RF Rx Instructions: remove at bedtime Continued atorvastatin 10 mg tablet 10 mg PO DAILY lorazepam 0.5 mg tablet 0.5 mg PO BID PRN (Reason: Anxiety) Rx Instructions: Take 1 tablet at 9am and 1 tablet at 4pm mirtazapine 15 mg tablet 15 mg PO BEDTIME ascorbic acid (vitamin C) [Vitamin C] 500 mg Tablet 500 mg PO BID buspirone 10 mg Tablet 10 mg PO BID benztropine 1 mg Tablet 1 mg PO BID temazepam 15 mg Capsule 15 mg PO BEDTIME PRN (Reason: Insomnia) haloperidol 5 mg Tablet 5 mg PO BID@0900,1500 Qty: 60 0RF clozapine 100 mg tablet 200 mg PO BEDTIME albuterol sulfate 90 mcg/actuation HFA aerosol inhaler 2 puff inhalation Q6H PRN (Reason: Wheezing) prazosin 2 mg capsule 4 mg PO BEDTIME metformin 500 mg tablet 500 mg PO BID amlodipine 2.5 mg Tablet 7.5 mg PO DAILY 30 Days Qty: 90 0RF Protocol: Hold for SBP< HOLD for SBP < : 90 hydrochlorothiazide 12.5 mg Tablet 12.5 mg PO DAILY 30 Days Qty: 30 0RF Protocol: Hold for SBP< HOLD for SBP < : 90 haloperidol 5 mg Tablet 15 mg PO BEDTIME 30 Days Qty: 90 0RF haloperidol 10 mg tablet 10 mg PO BEDTIME docusate sodium 100 mg capsule 100 mg PO BID mirtazapine 15 mg tablet 15 mg PO BEDTIME hydrochlorothiazide 12.5 mg tablet 12.5 mg PO DAILY Discontinued haloperidol 5 mg tablet 5 mg PO BID Discharge Orders: Discharge Order (Routine); Ordered 07/29/25 Ordered By: Jay Reed Diet: Regular diet Activity on Discharge: As tolerated Stand Alone Forms: Patient Portal Discharge page, Community Support Print Language: Singaporean Care Plan Goals: Maintain mood and safe behaviors Take medications as prescribed Practice coping skills Continue with outpatient providers and reach out to them as needed Health Concerns: Mood stability and behaviors GERD Diabetes Asthma Hypertension elevated Cholersterol Plan of Treatment: Follow up with your PCP, psychiatric provider and other outpatient providers regarding above concerns Take medications as prescribed Assessment: Risk assessment at time of discharge:? Patient was interviewed prior to discharge and found to be fully oriented and without any SI or HI. Patient has improved insight and judgment and wants to continue treatment. Patient is not in imminent risk of harm to self or others and has a safety plan that includes presenting to the closest ER or calling 911 if feeling unsafe.? Patient has been observed closely by nursing and unit staff throughout admission; patient has not engaged in any behaviors that suggest dangerousness to self or others and has demonstrated appropriate behaviors and impulse control
== END 2025-07-29 12:18 | disposition home or self-care (01) | DRG 885 ==
PROVIDERS: Admitting Provider Psychiatry & Neurology Psychiatry; PCP Nurse Practitioner Family; Visit Provider Psychiatry & Neurology Psychiatry
DX: F33.3 Major depressive disorder, recurrent, severe with psychotic symptoms (principal); F17.210 Nicotine dependence, cigarettes, uncomplicated; Z71.6 Tobacco abuse counseling; E11.9 Type 2 diabetes mellitus without complications; I10 Essential (primary) hypertension; E78.5 Hyperlipidemia, unspecified; F43.12 Post-traumatic stress disorder, chronic; F60.3 Borderline personality disorder; Z79.84 Long term (current) use of oral hypoglycemic drugs; Z79.899 Other long term (current) drug therapy
CPT/HCPCS: 36415; 82565; 85048

== ENCOUNTER → 2025-07-23 21:22 | Outpatient (BNV) | payer MEDICARE, MEDICAID, SELFPAY | PROVIDERS: Admitting Provider Psychiatry & Neurology Psychiatry; PCP Nurse Practitioner Family; Visit Provider Nurse Practitioner Family | DX: I10 Essential (primary) hypertension (principal); E78.5 Hyperlipidemia, unspecified; E11.9 Type 2 diabetes mellitus without complications | CPT/HCPCS: 99221 ==

== ENCOUNTER → 2025-07-23 21:22 | Outpatient (BNV) | payer MEDICARE, MEDICAID, SELFPAY | PROVIDERS: Admitting Provider Psychiatry & Neurology Psychiatry; PCP Nurse Practitioner Family; Visit Provider Psychiatry & Neurology Psychiatry | DX: F60.3 Borderline personality disorder (principal); F33.3 Major depressive disorder, recurrent, severe with psychotic symptoms; F43.12 Post-traumatic stress disorder, chronic | CPT/HCPCS: 90792; 99231; 99232; 99239 ==

== ENCOUNTER 2025-10-10 22:30 | Emergency (ER) | payer MEDICARE, MEDICAID, SELFPAY ==
--- OUTSIDE RECORDS SUMMARY | 2025-10-06 23:59 | XMS_ITS | Continuity of Care Document ---
Author Organization [facility] Address [address] [place] [id number]- Support Name Relationship Address Phone FRISIUS, IGOR Personal Relationship Unknown Un available FRISIUS, IGOR Personal Relationship Unknown Un available FRISIUS, IGOR Personal Relationship Unknown Un available SURRETTE, CARLOS domestic partner Unknown Unavaila ble FRISIUS, IGOR Personal Relationship Unknown Un available FRISIUS, IGOR Personal Relationship Unknown Un available FRISIUS, IGOR Personal Relationship Unknown Un available FRISIUS, IGOR Personal Relationship Unknown Un available FRISIUS, IGOR Personal Relationship Unknown Un available FRISIUS, IGOR Personal Relationship Unknown Un available FRISIUS, IGOR Personal Relationship Unknown Un available FRISIUS, IGOR Personal Relationship Unknown Un available FRISIUS, IGOR Personal Relationship Unknown Un available FRISIUS, IGOR Personal Relationship Unknown Un available FRISIUS, IGOR Personal Relationship Unknown Un available FRISIUS, IGOR Personal Relationship Unknown Un available FRISIUS, IGOR Personal Relationship Unknown Un available FRISIUS, IGOR Personal Relationship Unknown Un available MARSHALMORIARTY, MARY GRACE Other Unknown Unava ilable FRISIUS, IGOR Personal Relationship Unknown Un available FRISIUS, IGOR Personal Relationship Unknown Un available FRISIUS, IGOR Personal Relationship Unknown Un available FRISIUS, IGOR Personal Relationship Unknown Un available FRISIUS, IGOR Personal Relationship Unknown Un available FRISIUS, IGOR Personal Relationship Unknown Un available FRISIUS, IGOR Personal Relationship Unknown Un available FRISIUS, IGOR Personal Relationship Unknown Un available FRISIUS, IGOR Personal Relationship Unknown Un available FRISIUS, IGOR Personal Relationship Unknown Un available FRISIUS, IGOR Personal Relationship Unknown Un available FRISIUS, IGOR Personal Relationship Unknown Un available FRISIUS, IGOR Personal Relationship Unknown Un available FRISIUS, IGOR Personal Relationship Unknown Un available INDRA BOB Other Unknown Unavailable FRISIUS, IGOR Personal Relationship Unknown Un available FRISIUS, IGOR Personal Relationship Unknown Un available FRISIUS, IGOR Personal Relationship Unknown Un available FRISIUS, IGOR Personal Relationship Unknown Un available FRISIUS, IGOR Personal Relationship Unknown Un available FRISIUS, IGOR Personal Relationship Unknown Un available FRISIUS, IGOR Personal Relationship Unknown Un available FRISIUS, IGOR Personal Relationship Unknown Un available FRISIUS, IGOR Personal Relationship Unknown Un available FRISIUS, IGOR Personal Relationship Unknown Un available FRISIUS, IGOR Personal Relationship Unknown Un available FRISIUS, IGOR Personal Relationship Unknown Un available [facility] H[facility]PIT[facility] 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, 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 Other 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 n 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, 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 Other Unknown Carmita vailable FRISIUS, IGOR Personal Relationship Unknown Un available FRISIUS, IGOR Personal Relationship Unknown Un available FRISIUS, IGOR Personal Relationship Unknown Un available FRISIUS, IGOR Personal Relationship Unknown Un available FRISIUS, IGOR Personal Relationship Unknown Un available FRISIUS, IGOR Personal Relationship Unknown Un available FRISIUS, IGOR Personal Relationship Unknown Un available FRISIUS, IGOR Personal Relationship Unknown Un available FRISIUS, IGOR Personal Relationship Unknown Un available FRISIUS, IGOR Personal Relationship Unknown Un available FRISIUS, IGOR Personal Relationship Unknown Un available FRISIUS, IGOR Personal Relationship Unknown Un available FRISIUS, IGOR Personal Relationship Unknown Un available 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 Role Phone Maribel Marquez NP Primary Care Physician Encounter [facility] [id number] Date(s): 09/29/25 - 10/06/25 [facility] [address] [place] [phone]- Encounter Diagnosis Depression, major, recurrent, severe with psychosis(Discharge Diagnosis) - 09/29/25 Severe obesity(Discharge Diagnosis) - 09/29/25 Type 2 diabetes mellitus(Discharge Diagnosis) - 09/29/25 Hypertension(Discharge Diagnosis) - 09/29/25 Fatty liver(Discharge Diagnosis) - 09/29/25 Hyperlipidemia NOS(Discharge Diagnosis) - 09/29/25 Asthma(Discharge Diagnosis) - 09/29/25 Borderline personality disorder(Discharge Diagnosis) - 09/29/25 Chronic post-traumatic stress disorder (PTSD)(Discharge Diagnosis) - 09/29/25 GERD (gastroesophageal reflux disease)(Discharge Diagnosis) - 09/29/25 Comprehensive diabetic foot examination, type 2 DM, encounter for(Discharge Diagnosis) - 09/29/25 Hypertension associated with type 2 diabetes mellitus(Discharge Diagnosis) - 09/29/25 Hyperlipidemia associated with type 2 diabetes mellitus(Discharge Diagnosis) - 09/29/25 Abnormal physical evaluation(Discharge Diagnosis) - 09/29/25 Medicare annual wellness visit, subsequent(Discharge Diagnosis) - 09/29/25 Cervical cancer screening(Discharge Diagnosis) - 09/29/25 Attending Physician: Maribel Marquez NP Encounter Type: Office Visit Allergies, Adverse Reactions, Alerts Substance Criticality Severity Reaction Reaction Severity Status codeine Active lithium 1 Active penicillin Active predniSONE Active sulfa drugs Active Macrobid Active Zithromax Active Seafood Active Geodon Active 1pt reports 01/17/13 started taking lithium about a week ago. Functional Status Functional Status Assessment Assessment Assessment Component Result Effecti ve Date Disability status [CUBS] I'm Building Capacity - I have an asymptomatic condition controlled by services or medication 09/29/25 Difficulty communica ting in usual language No 09/29/25 Are you blind, or do you have serious difficulty seeing, even when wearing glasses Yes 09/29/25 Difficulty Reading O r Writing No 09/29/25 Because of a physica l, mental, or emotional condition, do you have serious difficulty concentrating, remembering, or making decisions Yes 09/29/25 Do you have serious difficulty walking or climbing stairs No 09/29/25 Do you need any additional assistance or accommodations during your visit No 09/29/25 Do you have difficul ty dressing or bathing No 09/29/25 Because of a physica l, mental, or emotional condition, do you have difficulty doing errands alone such as visiting a physician's office or shopping No 09/29/25 Are you deaf, or do you have serious difficulty hearing No 09/29/25 Immunizations Given and Recorded Vaccine Date Status Refusal Reason influenza virus vaccine, inactivated 1 09/11/25 Gi [place] influenza virus vaccine, inactivated 2 10/28/24 Gi [place]on influenza virus vaccine, inactivated 3 08/08/23 Gi [place]on influenza virus vaccine, inactivated [...] 07/06/13 Russel rded influenza virus vaccine, inactivated 4 09/27/10 Gi [place]on influenza virus vaccine, inactivated 07/23/09 Russel rded influenza virus vaccine, inactivated 07/17/07 Russel rded influenza virus vaccine, inactivated 07/23/06 Russel rded tetanus/diphtheria/pertussis, acel(Tdap) 12/07/24 Recorded tetanus/diphtheria/pertussis, acel(Tdap) 05/29/22 Given tetanus/diphtheria/pertussis, acel(Tdap) 04/20/21 [...] Virus Vaccine 03/15/79 Recor ded 1Result Comment: Flu [facility] [id number] 2Result Comment: [facility]: [id number] 3Result Comment: [facility] [id number] 4Early/Late Reason: Nursing Judgment Medications Albuterol 0.083% Albuterol 0.083%, neb, 0 Refills, Maintenance, prn, 06/11/24 2:43:00 PM EDT Start Date: 06/11/24 Status: Ordered Medication Dispense Status: Completed Total Allowed Fills: 1 Fills Dispensed: 0 albuterol 0.083% inhalation solution 1 vials, Inhalation, 4 times a day, # 120 each, 5 Refills, Maintenance, 08/19/25 2:30:00 PM EST, [facility], 164, cm, 08/17/25 11:50:00 EST, Height, 107.7, kg, 08/17/25 11:50:00 EST, Dry Weight Start Date: 08/19/25 Status: Ordered Medication Dispense Status: Completed Quantity: 120.0 Unit: each Total Allowed Fills: 1 Fills Dispensed: 0 albuterol-ipratropium 3 mg-0.5 mg/3 ml inhalation solution 3 mL, Inhalation, 4 times a day, PRN PRN, WHEEZING/SHORTNESS OF BREATH, # 180 mL, 11 Refills, Maintenance, 10/01/25 9:42:00 AM EST, [facility], 3 mL Inhalation 4 times a day,x30 days,PRN:PRN,Instr:WHEEZING/SHORTNESS OF BREATH, 164.6, cm, 10/01/25 9:30:00 EST, Height, 107.7, kg, 08/17/25 11:50:00 EST, Dry Weight Start Date: 10/01/25 Stop Date: 09/26/26 Status: Ordered Medication Dispense Status: Completed Quantity: 180.0 Unit: mL Total Allowed Fills: 12 Fills Dispensed: 0 amLODIPine 10 mg oral tablet 10 mg, 1, tablet, By Mouth, Daily, # 90 tablet, Refills 0, Tot. Refills 0, Maintenance, 09/29/25 8:27:00 AM EST, Route to Pharmacy Electronically, [facility], Partial fill upon patient request if the prescription is for a schedule II opioid drug., 164.6, cm, 09/29/25 7:51:00 EST, Height, 107.7, kg, 08/17/25 11:50:00 EST, Dry Weight Start Date: 09/29/25 Stop Date: 12/28/25 Status: Ordered Medication Dispense Status: Completed Quantity: 90.0 Unit: tablet Total Allowed Fills: 1 Fills Dispensed: 0 Ativan 0.5 mg oral tablet 1 tablet = 0.5 mg, By Mouth, Daily, PRN for anxiety, 0 Refills, Maintenance, 10/16/23 4:46:00 PM EST,Tablet, Partial fill upon patient request if the prescription is for a schedule II opioid drug. Start Date: 10/16/23 Status: Ordered Medication Dispense Status: Completed Total Allowed Fills: 1 Fills Dispensed: 0 atorvastatin 20 mg oral tablet 1 tablet = 20 mg, By Mouth, Daily at bedtime, # 90 tablet, 0 Refills, Maintenance, 09/30/25 7:29:00AM EST, [facility], Partial fill upon patient request if the prescription is for a schedule II opioid drug., 164.6, cm, 09/29/25 7:51:00 EST, Height, 107.7, kg, 08/17/25 11:50:00 EST, Dry Weight Start Date: 09/30/25 Stop Date: 12/29/25 Status: Ordered Medication Dispense Status: Completed Quantity: 90.0 Unit: tablet Total Allowed Fills: 1 Fills Dispensed: 0 benztropine 1 mg oral tablet 1 mg, 1, tablet, By Mouth, 2 times a day, # 60 tablet, Refills 0, Tot. Refills 0, Maintenance, 11/16/22 10:33:00 AM EST, Route to Pharmacy Electronically, [facility], Partial fill upon patient request if the prescription is for a schedule II opioid drug., 163, cm, 11/16/22 9:43:00 EST, Height, 97.3, kg, 11/13/22 16:31:00 EST, Dry Weight Start Date: 11/16/22 Status: Ordered Medication Dispense Status: Completed Quantity: 60.0 Unit: tablet Total Allowed Fills: 1 Fills Dispensed: 0 busPIRone 10 mg oral tablet 10 mg, By Mouth, Daily, Refills 0, Maintenance, 10/16/23 4:30:00 PM EST, Partial fill upon patient request if the prescription is for a schedule II opioid drug. Start Date: 10/16/23 Status: Ordered Medication Dispense Status: Completed Total Allowed Fills: 1 Fills Dispensed: 0 Clozaril 100 mg oral tablet 2 tablet = 200 mg, By Mouth, every pm, 0 Refills, Maintenance, 06/11/24 2:57:00 PM EDT, Partial fillupon patient request if the prescription is for a schedule II opioid drug. Start Date: 06/11/24 Status: Ordered Medication Dispense Status: Completed Total Allowed Fills: 1 Fills Dispensed: 0 Cogentin Tablet 1 mg, By Mouth, 2 times a day, Refills 0, Maintenance, 06/11/24 2:58:00 PM EDT, Partial fill upon patient request if the prescription is for a schedule II opioid drug. Start Date: 06/11/24 Status: Ordered Medication Dispense Status: Completed Total Allowed Fills: 1 Fills Dispensed: 0 Dulcolax 5 mg oral enteric coated tablet 1 tablet = 5 mg, By Mouth, prn, 0 Refills, Maintenance, 06/11/24 2:46:00 PM EDT, Partial fill upon patient request if the prescription is for a schedule II opioid drug. Start Date: 06/11/24 Status: Ordered Medication Dispense Status: Completed Total Allowed Fills: 1 Fills Dispensed: 0 ferrous sulfate 325 mg oral tablet 1 tablet = 325 mg, By Mouth, 2 times a day, # 180 tablet, 1 Refills, Maintenance, 02/27/25 8:44:00 AM EDT, [facility], Partial fill upon patient request if the prescription is for a scheduleII opioid drug., 163.4, cm, 02/12/25 9:18:00 EDT, Height, 111, kg, 04/23/24 5:37:00 EDT, Dry Weight Start Date: 02/27/25 Stop Date: 08/26/25 Status: Ordered Medication Dispense Status: Completed Quantity: 180.0 Unit: tablet Total Allowed Fills: 2 Fills Dispensed: 0 FLUoxetine 20 mg oral capsule 80 mg, By Mouth, Daily, Refills 0, Maintenance, 10/16/23 4:27:00 PM EST, Partial fill upon patient request if the prescription is for a schedule II opioid drug. Start Date: 10/16/23 Status: Ordered Medication Dispense Status: Completed Total Allowed Fills: 1 Fills Dispensed: 0 fluPHENAZine 5 mg oral tablet 15mg BID, Refills 0, Maintenance, 01/15/24 8:59:00 AM EDT, Partial fill upon patient request if the prescription is for a schedule II opioid drug. Start Date: 01/15/24 Status: Ordered Medication Dispense Status: Completed Total Allowed Fills: 1 Fills Dispensed: 0 haloperidol 20 mg oral tablet 0 Refills, Maintenance, 09/11/25 1:14:00 PM EST, Partial fill upon patient request if the prescription is for a schedule II opioid drug. Start Date: 09/11/25 Status: Ordered Medication Dispense Status: Completed Total Allowed Fills: 1 Fills Dispensed: 0 haloperidol 5 mg oral tablet 5 mg, 1, tablet, By Mouth, 3 times a day, Refills 0, Maintenance, 12/10/23 2:35:00 PM EST, Partial fill upon patient request if the prescription is for a schedule II opioid drug. Start Date: 12/10/23 Status: Ordered Medication Dispense Status: Completed Total Allowed Fills: 1 Fills Dispensed: 0 Heartburn Relief 10 mg oral tablet See Instructions, TAKE 1 TABLET BY MOUTH 3 TIMES A DAY, # 60 tablet, 0 Refills, Maintenance, 09/04/24 3:27:00 PM EST, [facility], 163.4, cm, 07/01/24 13:55:00 EDT, Height, 111, kg, :37:00 EDT, Dry Weight Start Date: 09/04/24 Status: Ordered Medication Dispense Status: Completed Quantity: 60.0 Unit: tablet Total Allowed Fills: 1 Fills Dispensed: 0 hydroCHLOROthiazide 12.5 mg oral capsule 1 capsule = 12.5 mg, By Mouth, Daily, # 90 capsule, 0 Refills, Maintenance, 09/11/25 1:10:00 PM EST, Capsule, [facility], Partial fill upon patient request if the prescription is for a schedule II opioid drug., 164, cm, 09/11/25 12:55:00 EST, Height, 107.7, kg, 08/17/25 11:50:00 EST, Dry Weight Start Date: 09/11/25 Stop Date: 12/10/25 Status: Ordered Medication Dispense Status: Completed Quantity: 90.0 Unit: capsule Total Allowed Fills: 1 Fills Dispensed: 0 hydrochlorothiazide 12.5 mg oral tablet Prescribed by JUN Solo, 0 Refills, Maintenance, 09/01/25 10:26:00 AM EST, Partial fill upon patient request if the prescription is for a schedule II opioid drug. Start Date: 09/01/25 Status: Ordered Medication Dispense Status: Completed Total Allowed Fills: 1 Fills Dispensed: 0 ibuprofen 600 mg oral tablet 1, tablet, By Mouth, Every 6 hours, PRN, MODERATE PAIN., # 120 tablet, Refills 0, Maintenance, NEEDED, 05/01/25 9:48:00 AM EDT, Route to Pharmacy Electronically, [facility], 163.4, cm, 03/25/25 14:50:00 EDT, Height, 111, kg, 04/23/24 5:37:00 EDT, Dry Weight Start Date: 05/01/25 Status: Ordered Medication Dispense Status: Completed Quantity: 120.0 Unit: tablet Total Allowed Fills: 1 Fills Dispensed: 0 metFORMIN 500 mg oral tablet 1 tablet, By Mouth, 2 times a day, for 90 days, FOR DIABETES., # 180 tablet, 2 Refills, Hard Stop 11/03/25 11:34:00 AM EST, 02/06/25 11:34:00 AM EDT, [facility], 163.4, cm, 02/06/25 11:19:00 EDT, Height, 111, kg, 04/23/24 5:37:00 EDT, Dry Weight Start Date: 02/06/25 Stop Date: 11/03/25 Status: Ordered Medication Dispense Status: Completed Quantity: 180.0 Unit: tablet Total Allowed Fills: 3 Fills Dispensed: 0 metFORMIN 500 mg oral tablet 1 tablet, By Mouth, 2 times a day, FOR DIABETES., # 180 tablet, 1 Refills, Maintenance, 11/03/25 11:34:00 AM EST, [facility], 163.4, cm, 02/12/25 9:18:00 EDT, Height, 111, kg, 04/23/24 5:37:00 EDT, Dry Weight Start Date: 11/03/25 Stop Date: 05/02/26 Status: Ordered Medication Dispense Status: Completed Quantity: 180.0 Unit: tablet Total Allowed Fills: 2 Fills Dispensed: 0 MiraLax oral powder for reconstitution = 17 Gm, By Mouth, Daily, # 238 Gm, 0 Refills, Maintenance, 12/01/23 6:35:00 PM EST, REC Powder, [facility], Partial fill upon patient request if the prescription is for a schedule II opioiddrug., 17 Gm By Mouth Daily, 164, cm, 11/13/23 15:11:00 EST, Height, 100, kg, 11/12/23 18:20:00 EST, Dry Weight Start Date: 12/01/23 Status: Ordered Medication Dispense Status: Completed Quantity: 238.0 Unit: g Total Allowed Fills: 1 Fills Dispensed: 0 mirtazapine 15 mg oral tablet 1 tablet = 15 mg, By Mouth, Daily at bedtime, # 15 tablet, 0 Refills, Maintenance, 11/16/22 10:34:00 AM EST, Tablet, [facility], Partial fill upon patient request if the prescription is for aschedule II opioid drug., 163, cm, 11/16/22 9:43:00 EST, Height, 97.3, kg, 11/13/22 16:31:00 EST, Dry Weight Start Date: 11/16/22 Status: Ordered Medication Dispense Status: Completed Quantity: 15.0 Unit: tablet Total Allowed Fills: 1 Fills Dispensed: 0 Miscellaneous Rx 7 mg, Topically, 0 Refills, Maintenance, evry am, 06/11/24 2:51:00 PM EDT Start Date: 06/11/24 Status: Ordered Medication Dispense Status: Completed Total Allowed Fills: 1 Fills Dispensed: 0 montelukast 10 mg oral tablet 10 mg, 1, tablet, By Mouth, Daily at bedtime, for 90 days, # 90 tablet, Refills 2, Tot. Refills 2, Hard Stop 11/03/25 11:34:00 AM EST, 02/06/25 11:34:00 AM EDT, Route to Pharmacy Electronically, [facility], Partial fill upon patient request if the prescription is for a schedule II opioid drug., 163.4, cm, 02/06/25 11:19:00 EDT, Height, 111, kg, 04/23/24 5:37:00 EDT, Dry Weight Start Date: 02/06/25 Stop Date: 11/03/25 Status: Ordered Medication Dispense Status: Completed Quantity: 90.0 Unit: tablet Total Allowed Fills: 3 Fills Dispensed: 0 montelukast 10 mg oral tablet 10 mg, 1, tablet, By Mouth, Daily at bedtime, # 90 tablet, Refills 2, Tot. Refills 2, Maintenance, 11/03/25 11:34:00 AM EST, Route to Pharmacy Electronically, [facility], Partial fill upon patient request if the prescription is for a schedule II opioid drug., 163.4, cm, 02/12/25 9:18:00 EDT, Height, 111, kg, 04/23/24 5:37:00 EDT, Dry Weight Start Date: 11/03/25 Stop Date: 07/31/26 Status: Ordered Medication Dispense Status: Completed Quantity: 90.0 Unit: tablet Total Allowed Fills: 3 Fills Dispensed: 0 Nebulizer supplies Nebulizer supplies, See Instructions, # 1 each, Refills 11, Tot. Refills 11, Maintenance, A7003 NebDisp Set A7014 Neb non-Disp Filter A7005 Neb Non-Disp set A7015 Aerosol Mask A7013 Neb Disp Filter length of need lifetime 99 months for home use, 06/12/24 9:27:00 AM EDT, Supply Start Date: 06/12/24 Status: Ordered Medication Dispense Status: Completed Quantity: 1.0 Unit: each Total Allowed Fills: 12 Fills Dispensed: 0 Nebulizer/Compressor See Instructions, # 1 each, Maintenance, Use as directed with Duoneb QID PRN SOB/Wheezing, 05/16/24 2:08:00 PM EDT, Supply Start Date: 05/16/24 Status: Ordered Medication Dispense Status: Completed Quantity: 1.0 Unit: each Total Allowed Fills: 1 Fills Dispensed: 0 Indications: Unspecified asthma, uncomplicated; Nicoderm Nicoderm, 14 mg, 0 Refills, Maintenance, every am, 06/11/24 2:50:00 PM EDT Start Date: 06/11/24 Status: Ordered Medication Dispense Status: Completed Total Allowed Fills: 1 Fills Dispensed: 0 pantoprazole 20 mg oral delayed release tablet 1 tablet = 20 mg, By Mouth, Daily before breakfast, # 90 tablet, 3 Refills, Maintenance, 02/19/25 1:27:00 PM EDT, CR Tablet, 163.4, cm, 02/12/25 9:18:00 EDT, Height, 111, kg, 04/23/24 5:37:00 EDT, Dry Weight Start Date: 02/19/25 Status: Ordered Medication Dispense Status: Completed Quantity: 90.0 Unit: tablet Total Allowed Fills: 4 Fills Dispensed: 0 PEG-3350 with Electrolytes (Eqv-GoLYTELY) oral powder for reconstitution See Instructions, per GI office, # 4,000 mL, 0 Refills, Maintenance, 08/14/25 3:44:00 PM EDT, [facility], Partial fill upon patient request if the prescription is for a schedule II opioid drug., per GI office, 163.4, cm, 06/09/25 8:43:00 EDT, Height, 111, kg, 04/23/24 5:37:00 EDT, Dry Weight Start Date: 08/14/25 Status: Ordered Medication Dispense Status: Completed Quantity: 4000.0 Unit: mL Total Allowed Fills: 1 Fills Dispensed: 0 PEG-3350 with Electrolytes Lemon (Eqv-NuLYTELY) oral powder for reconstitution See Instructions, follow instructions provided by the office, # 240 mL, 0 Refills, Maintenance, 07/24/24 11:35:00 AM EDT, REC Powder, [facility], Partial fill upon patient request if the prescription is for a schedule II opioid drug., follow instructions provided by the office, 163.4, cm, 07/01/24 13:55:00 EDT, Height, 111, kg, 04/23/24 5:37:00 EDT, Dry Weight Start Date: 07/24/24 Status: Ordered Medication Dispense Status: Completed Quantity: 240.0 Unit: mL Total Allowed Fills: 1 Fills Dispensed: 0 prazosin 2 mg oral capsule 2 capsule = 4 mg, 0 Refills, Maintenance, 01/15/24 8:59:00 AM EDT, Partial fill upon patient request if the prescription is for a schedule II opioid drug. Start Date: 01/15/24 Status: Ordered Medication Dispense Status: Completed Total Allowed Fills: 1 Fills Dispensed: 0 Prolixin Tablet 5 mg, By Mouth, 2 times a day, Refills 0, Maintenance, 06/11/24 3:15:00 PM EDT, Partial fill upon patient request if the prescription is for a schedule II opioid drug. Start Date: 06/11/24 Status: Ordered Medication Dispense Status: Completed Total Allowed Fills: 1 Fills Dispensed: 0 Remeron 15 mg oral tablet 1 tablet = 15 mg, By Mouth, Daily at bedtime, 0 Refills, Maintenance, 03/25/25 3:01:00 PM EDT, Partial fill upon patient request if the prescription is for a schedule II opioid drug. Start Date: 03/25/25 Status: Ordered Medication Dispense Status: Completed Total Allowed Fills: 1 Fills Dispensed: 0 Restoril 15 mg oral capsule 1 capsule = 15 mg, By Mouth, Daily at bedtime, 0 Refills, Maintenance, 09/02/25 1:45:00 PM EST, Partial fill upon patient request if the prescription is for a schedule II opioid drug. Start Date: 09/02/25 Status: Ordered Medication Dispense Status: Completed Total Allowed Fills: 1 Fills Dispensed: 0 Suprep Bowel Prep Kit oral liquid See Instructions, see colonoscopy instructions, # 1 kit, 0 Refills, Maintenance, 02/19/25 1:43:00 PM EDT, [facility], Partial fill upon patient request if the prescription is for a schedule II opioid drug., see colonoscopy instructions, 163.4, cm, 02/12/25 9:18:00 EDT, Height, 111, kg, 04/23/24 5:37:00 EDT, Dry Weight Start Date: 02/19/25 Status: Ordered Medication Dispense Status: Completed Quantity: 1.0 Unit: kit Total Allowed Fills: 1 Fills Dispensed: 0 Indications: Tobacco use; Encounter for screening for malignant neoplasm of colon; Gastro-esophageal reflux disease without esophagitis; Trelegy Ellipta 200 mcg-62.5 mcg-25 mcg/inh inhalation powder 1 inhalation, Inhalation, Daily, at the same time every day, # 1 each, 11 Refills, Maintenance, 10/01/25 9:41:00 AM EST, Powder, [facility], asthma j45,9, 1 inhalation Inhalation Daily,x30 days,Instr:at the same time every day, 164.6, cm, 10/01/25 9:30:00 EST, Height, 107.7, kg, 08/17/25 11:50:00 EST, Dry Weight Start Date: 10/01/25 Stop Date: 09/26/26 Status: Ordered Medication Dispense Status: Completed Quantity: 1.0 Unit: each Total Allowed Fills: 12 Fills Dispensed: 0 Trelegy Ellipta 200 mcg-62.5 mcg-25 mcg/inh inhalation powder 1 puffs, Inhalation, Daily, at the same time every day, # 1 each, 5 Refills, Maintenance, 03/25/25 3:04:00 PM EDT, Powder, [facility], asthma j45.9, replaces advair, 1 puffs Inhalation Daily,x30 days,Instr:at the same time every day, 163.4, cm, 03/25/25 14:50:00 EDT, Height, 111, kg, 04/23/24 5:37:00 EDT, Dry Weight Start Date: 03/25/25 Stop Date: 09/21/25 Status: Ordered Medication Dispense Status: Completed Quantity: 1.0 Unit: each Total Allowed Fills: 6 Fills Dispensed: 0 Vitamin C 500 mg oral tablet 1 tablet = 500 mg, By Mouth, 2 times a day, # 180 tablet, 3 Refills, Maintenance, 02/06/25 11:35:00 AM EDT, [facility], Partial fill upon patient request if the prescription is for a schedule II opioid drug., 163.4, cm, 02/06/25 11:19:00 EDT, Height, 111, kg, 04/23/24 5:37:00 EDT, Dry Weight Start Date: 02/06/25 Stop Date: 02/01/26 Status: Ordered Medication Dispense Status: Completed Quantity: 180.0 Unit: tablet Total Allowed Fills: 4 Fills Dispensed: 0 Mental Status Mental Status Assessment Assessment Assessment Component Result Effecti ve Date Patient Health Questionnaire 2 item (PHQ-2) total score [Reported] 1 09/29/25 Problem List Condition Confirmation Course Effective Dates Status H ealth Status Informant Asthma Confirmed Active Borderline personality disorder Confirmed Active Chronic abdominal pain Confirmed Active Chronic post-traumatic stress disorder (PTSD) Confirmed Active GERD (gastroesophageal reflux disease) Confirmed Active Hyperlipidemia associated with type 2 diabetes mellitus Confirmed Active Hyperlipidemia NOS Confirmed Active Hypertension Confirmed Active Hypertension associated with type 2 diabetes mellitus Confirmed Active Anemia, iron deficiency Confirmed Active Depression, major, recurrent, severe with psychosis Confirmed Active Severe obesity Confirmed Active Fatty liver Confirmed Active Tobacco dependence Confirmed Active Type 2 diabetes mellitus Confirmed Active Comprehensive diabetic foot examination, type 2 DM, encounter for Confirmed Active Diagnosis Diagnosis Type Effective Dates Health Status Clinical Service Informant Depression, major, recurrent, severe with psychosis Discharge Diagnosis 09/29/25 Severe obesity Discharge Diagnosis 09/29/25 Type 2 diabetes mellitus Discharge Diagnosis 09/29/25 Hypertension Discharge Diagnosis 09/29/25 Fatty liver Discharge Diagnosis 09/29/25 Hyperlipidemia NOS Discharge Diagnosis 09/29/25 Asthma Discharge Diagnosis 09/29/25 Borderline personality disorder Discharge Diagnosis 09/29/25 Chronic post-traumatic stress disorder (PTSD) Discharge Diagnosis 09/29/25 GERD (gastroesophageal reflux disease) Discharge Diagnosis 09/29/25 Comprehensive diabetic foot examination, type 2 DM, encounter for Discharge Diagnosis 09/29/25 Hypertension associated with type 2 diabetes mellitus Discharge Diagnosis 09/29/25 Hyperlipidemia associated with type 2 diabetes mellitus Discharge Diagnosis 09/29/25 Abnormal physical evaluation Discharge Diagnosis 09/29/25 Medicare annual wellness visit, subsequent Discharge Diagnosis 09/29/25 Cervical cancer screening Discharge Diagnosis 09/29/25 Vital Signs Most recent to oldest [Reference Range]: 1 Height 164.6 cm (09/29/25 7:51 AM) Weight 108.8 kg (09/29/25 7:51 AM) Oxygen Saturation [94-100 %] 94 % (09/29/25 7:51 AM) Pulse Rate [55-90 bpm] 119 bpm *H* (09/29/25 7:51 AM) Body Mass Index [18.5-24.99 kg/m2] 40.16 kg/m2 *H* (09/29/25 7:51 AM) Blood Pressure [90-138/55-84 mm Hg] 132/ 88mm Hg (09/29/25 7:51 AM) Temperature [96.8-100.4 DegF] 98.2 DegF (09/29/25 7:51 AM) Mode of Delivery (Oxygen) Room air (09/29/25 7:51 AM) Blood pressure sites Arm, left (09/29/25 7:51 AM) Temperature Route Oral (09/29/25 7:51 AM) Weight Obtained Via Standing scale (09/29/25 7:51 AM) Social History Social History Type Response Smoking Status 10 or more cigarette s (1/2 pack or more)/day in last 30 days; Interested in cessation: No; Patient wants NRT during admission No entered on: 03/25/25 Sexual Orientation Self described orien tation: ; Straight or heterosexual Sex Female Sex Representation Female (finding) Note * Christine Farley: PERFORM Event Display: Patient Education/Instruction Authored Date: [id number] Ambulatory Adult Visit Summary [facility] [address], [place] [id number] Name: IGOR KAUFMAN : 1975?? Visit: 09/29/2025 07:49?? Ambulatory Visit Instructions ?? Your Care Team Primary Care Provider Maribel Marquez NP? This Visit Provider Maribel Marquez NP Your Diagnosis HLD (hyperlipidemia) Vitals Signs Temperature: 98.2 DegF Height: 164.6 cm Pulse Rate:??119 bpm??High Weight: 108.8 kg Systolic Blood Pressure: 132 mm Hg Body Mass Index:??40.16 kg/m2??High Diastolic Blood Pressure:??88 mm Hg??High Body surface area: 2.23 Oxygen Saturation: 94 % ?? What to do next Scheduled Follow-Up Appointments 2024 9:20 AM EST ?? Type: Return With: Elizabeth Stone MD Where: [facility] [address] [place] [address]- Status: Pending Follow-Up Appointments Follow Up with??Maribel Marquez NP When:03/31/2026 11:30 AM EDT Where:[address] [address]- Additional Information: RET Follow Up with??Maribel Marquez NP When:10/04/2026 01:50 PM EST Where:[address] [address]- Additional Information: [facility] Future Orders Lipid Panel - Routine, Once, 09/29/25 8:09:00 EST, Order for Today, [facility], Blood?? Medications The list below reflects the information in our records and provided by you today along with any changes made during this visit. Please continue your medications until treatment is completed or stopped by your provider. If this is different from the information you have or there are other questions,please contact the prescribing provider. What How Much When Why Instructions Unchanged Albuterol (albuterol 0.083% inhalation solution) 1 vials Inhalation 4 times a day Ordering Physician: Jeanne Garcia MD Unchanged Albuterol/ Ipratropium (albuterol-ipratropium 3 mg-0.5 mg/ 3 ml inhalation solution) 3 Milliliter Inhalation 4 times a day as needed for PRN Special Instructions: WHEEZING/ SHORTNESS OF BREATH Ordering Physician: Maribel Marquez NP ?? Unchanged Amlodipine (amLODIPine 2.5 mg oral tablet) 1 tab(s) Oral Daily Duration: 90 Days Special Instructions: Take with 5 mg to make 7.5mg total daily. Ordering Physician: Maribel Marquez NP ?? Unchanged Amlodipine (amLODIPine 2.5 mg oral tablet) Special Instructions: Prescirbed by JUN Solo ?? Unchanged Amlodipine (amLODIPine 5 mg oral tablet) 1 tab(s) Oral Daily Duration: 90 Days Ordering Physician: Maribel Marquez NP Unchanged Ascorbic Acid (Vitamin C 500 mg oral tablet) 1 tab(s) Oral Twice a day Duration: 90 Days Ordering Physician: Maribel Marquez NP Unchanged Atorvastatin (atorvastatin 10 mg oral tablet) 1 tab(s) Oral Daily at Bedtime Ordering Physician: Maribel Marquez NP Unchanged Benztropine (benztropine 1 mg oral tablet) 1 tab(s) Oral Twice a day Ordering Physician: Robby Gamboa DO Unchanged Benztropine (Cogentin Tablet) 1 Milligram Oral Twice a day Unchanged Bisacodyl (Dulcolax 5 mg oral enteric coated tablet) 1 tab(s) Oral Special Instructions: prn ?? Unchanged BusPIRone (busPIRone 10 mg oral tablet) 10 Milligram Oral Daily Ordering Physician: Rosana Slater MD Unchanged Clozapine (Clozaril 100 mg oral tablet) 2 tab(s) Oral Special Instructions: every pm ?? Unchanged Durable Medical Equipment (Nebulizer supplies) See instructions Special Instructions: A7003 Neb Disp Set ??A7014 Neb non-Disp Filter ??A7005 Neb Non-Disp set [id number] Mask A7013 Neb Disp Filter ??length of need lifetime 99 months ??for home use Ordering Physician: Elizabeth Stone MD ?? Unchanged Durable Medical Equipment (Nebulizer/ Compressor) See instructions Asthma Special Instructions: Use as directed with Duoneb QID PRN SOB/ Wheezing Ordering Physician: Maribel Marquez NP ?? Unchanged Famotidine (Heartburn Relief 10 mg oral tablet) See instructions Special Instructions: TAKE 1 TABLET BY MOUTH 3 TIMES A DAY Ordering Physician: Maribel Marquez NP ?? Unchanged Ferrous Sulfate (ferrous sulfate 325 mg oral tablet) 1 tab(s) Oral Twice a day Duration: 90 Days Ordering Physician: Maribel Marquez NP Unchanged Fluoxetine (FLUoxetine 20 mg oral capsule) 80 Milligram Oral Daily Ordering Physician: Rosana Slater MD Unchanged Fluphenazine (fluPHENAZine 5 mg oral tablet) Special Instructions: 15mg BID ?? Unchanged Fluphenazine (Prolixin Tablet) 5 Milligram Oral Twice a day Unchanged fluticason/ umeclidinium/ vilant (Trelegy Ellipta 200 mcg-62.5 mcg-25 mcg/ inh inhalationpowder) 1 puff(s) Inhalation Daily Duration: 30 Days Special Instructions: at the same time every day Ordering Physician: Elizabeth Stone MD ?? Unchanged Haloperidol (haloperidol 20 mg oral tablet) Unchanged Haloperidol (haloperidol 5 mg oral tablet) 1 tab(s) Oral 3 times a day Unchanged Hydrochlorothiazide (hydroCHLOROthiazide 12.5 mg oral capsule) 1 capsule Oral Daily Duration: 90 Days Ordering Physician: Maribel Marquez NP Unchanged Hydrochlorothiazide (hydrochlorothiazide 12.5 mg oral tablet) Special Instructions: Prescribed by JUN Solo ?? Unchanged Ibuprofen (ibuprofen 600 mg oral tablet) 1 tab(s) Oral Every 6 hours as needed for NEEDED Special Instructions: MODERATE PAIN. Ordering Physician: Maribel Marquez NP ?? Unchanged Lorazepam (Ativan 0.5 mg oral tablet) 1 tab(s) Oral Daily as needed for for anxiety Unchanged magnesium/ potassium/ sodium sulfates (Suprep Bowel Prep Kit oral liquid) See instructions GERD (gastroesophageal reflux disease) Tobacco use Colon cancer screening Special Instructions: see colonoscopy instructions Ordering Physician: Kishan Willson ?? Unchanged Metformin (metFORMIN 500 mg oral tablet) 1 tab(s) Oral Twice a day Duration: 90 Days Special Instructions: FOR DIABETES. Ordering Physician: Maribel Marquez NP ?? Unchanged Metformin (metFORMIN 500 mg oral tablet) 1 tab(s) Oral Twice a day Duration: 90 Days Special Instructions: FOR DIABETES. Ordering Physician: Maribel Marquez NP ?? Unchanged Mirtazapine (mirtazapine 15 mg oral tablet) 1 tab(s) Oral Daily at Bedtime Ordering Physician: Maribel Marquez NP Unchanged Mirtazapine (Remeron 15 mg oral tablet) 1 tab(s) Oral Daily at Bedtime Unchanged Miscellaneous Rx 7 Milligram Topically Special Instructions: evry am ?? Unchanged Miscellaneous Rx (Albuterol 0.083%) neb Special Instructions: prn ?? Unchanged Miscellaneous Rx (Nicoderm) 14 Milligram Special Instructions: every am ?? Unchanged Montelukast (montelukast 10 mg oral tablet) 1 tab(s) Oral Daily at Bedtime Duration: 90 Days Ordering Physician: Maribel Marquez NP Unchanged Montelukast (montelukast 10 mg oral tablet) 1 tab(s) Oral Daily at Bedtime Duration: 90 Days Ordering Physician: Maribel Marquez NP Unchanged Pantoprazole (pantoprazole 20 mg oral delayed release tablet) 1 tab(s) Oral Daily before breakfast Ordering Physician: Kishan Willson Unchanged PEG Electrolyte Solution (PEG-3350 with Electrolytes (Eqv-GoLYTELY) oral powder for reconstitution) See instructions Special Instructions: per GI office Ordering Physician: To Mazariegos MD ?? Unchanged PEG Electrolyte Solution (PEG-3350 with Electrolytes Lemon (Eqv- NuLYTELY) oral powder forreconstitution) See instructions Special Instructions: follow instructions provided by the office Ordering Physician: Kishan Willson ?? Unchanged Polyethylene Glycol 3350 (MiraLax oral powder for reconstitution) 17 gram Oral Daily Ordering Physician: Lamar Antonio Unchanged Prazosin (prazosin 2 mg oral capsule) 2 capsule Unchanged Temazepam (Restoril 15 mg oral capsule) 1 capsule Oral Daily at Bedtime Test Performed Below is a partial list of the tests performed during your Visit. You may have had other tests and procedures not included in this list. Please discuss all test results with your provider. Lipid Panel?-- Results Pending -- Medications and Immunizations Administered Medications Given During Visit No medications given during this visit.?? Allergies (NKA means No Known Allergies) Geodon Macrobid Seafood Zithromax codeine lithium penicillin predniSONE sulfa drugs Common Emergency Awareness Tips IS IT A STROKE? Act FAST and Check for these signs: FACE Does the face look uneven? ARM Does one arm drift down? SPEECH Does their speech sound strange? TIME Call at any sign of stroke ?? Heart Attack Signs Chest discomfort: Most heart attacks involve discomfort in the center of the chest and lasts more than a few minutes, or goes away and comes back. It can feel like uncomfortable pressure, squeezing, fullness or pain. Discomfort in upper body: Symptoms can include pain or discomfort in one or both arms, back, neck, jaw or stomach. Shortness of breath: With or without discomfort. Other signs: Breaking out in a cold sweat, nausea, or lightheaded. Remember, MINUTES DO MATTER. If you experience any of these heart attack warning signs, call to get immediate medical attention! ?? Smoking can increase your chances of developing chronic health problems and can cause harmful effects to other family members in your house. If you smoke, you are strongly encouraged to quit. Please call [employer] at [phone] or [phone] ([phone]) or log in to [email or web address] for referrals to smoking cessation programs. ?? The National Suicide Prevention Hotline is available 07/05 if you or someone you know needs to find a reason to keep living. By calling 4-900-952-[employer] (1583) you'll be connected to a skilled, trained counselor at a crisis center in your area. [facility] [employer] Portal You can view and manage your care through the patient portal or by using a health care [place] of your choosing. [employer] is a website that allows you to securely view your medical information including your hospital discharge summary, office visit summaries, medications and follow-up visits. You can also request appointments, renew medications, and request access to your medical information using a health care [place] of your choosing, or just ask a question. You can enroll at [email or web address] or register during your next office visit. [facility], in keeping with [facility] guidance, no longer requires face masks for staff, patientsor visitors in most situations. Similiar to time spent indoors at other locations, there is the chance that you were exposed to repiratory viruses during your time with us (such as flu or COVID-19). If you develop symptoms concerning for a viral respiratory infection, please seek testing (and treatment if indicated) from your medical provider or home test kit. ?? Disclaimer: The information provided is of a general nature and is intended to be used in conjunction with the recommendations and advice of your health care practitioner. Every effort has been made to ensure that the information provided is accurate and complete at the time it is provided to you however, as your needs change, or, as new information becomes available, different or additional instructions may be required. ?? If you have questions, please consult with your primary care provider or pharmacist, as appropriate. This information is not intended to serve as substitution for assessment and evaluation by a qualified health care provider. If you do not have a primary care provider, you may find a [facility] provider by calling [facility] Link at [phone]. Patient Care team information Care Team Personnel Name: Rudi Ruiz RN Position: [facility] ED RN W/OE and Tasks Member Role: Primary Care Nurse Name: Ros Fu RN Position: [facility] RN Member Role: Primary Care Nurse Name: Rosana Keanrey RN Position: [facility] RN Member Role: Primary Care Nurse Name: Wil Flood RN Position: [facility] RN Member Role: Primary Care Nurse Name: Gagandeep Sheldon RN Position: [facility] RN Member Role: Primary Care Nurse Name: Alba Daily RN Position: [facility] RN Member Role: Primary Care Nurse Name: Maribel Marquez NP Position: [facility] PCO Associate Professional Member Role: PCP Address: [address] [place] [address], [address] [facility] [place] [address]- Telecom: Name: Jose Ramirez RN Position: [facility] RN Member Role: Primary Care Nurse Name: Mackenzie Sanabria RN Position: [facility] RN Member Role: Primary Care Nurse Name: Nicole Hayes Position: [facility] Major Sales Associate Member Role: Residential Sales Manager Name: Brittany Butts RN Position: [facility] AMB Nurse Member Role: Primary Care Nurse Name: Pauline Mcadams RN Position: [facility] RN Member Role: Primary Care Nurse Name: Mary Sánchez RN Position: [facility] RN Member Role: Primary Care Nurse Name: Shama Huber RN Position: [facility] RN Member Role: Primary Care Nurse Name: Jackie Snyder RN Position: [facility] RN Member Role: Primary Care Nurse Name: Rosana Tidwell RN Position: [facility] RN Member Role: Primary Care Nurse Name: Jay Burks NP Position: Reference Physician Member Role: Primary Care Nurse Address: [address] [facility] [address] Clinical & [place] [address]- Telecom: Name: Parvez Kaba MD Position: [facility] Renal MD Member Role: Lifetime Consulting Physician Address: [address] [place] [address] [address] [facility] [place], [place] [address] Telecom: Name: Mirna Paul RN Position: [facility] OB RN Member Role: Primary Care Nurse Name: Latonya Rahman RN Position: [facility] Onco RN Member Role: Primary Care Nurse Name: Viki Gonzalez RN Position: [facility] RN Member Role: Primary Care Nurse Name: Claudia Presley RN Position: [facility] RN Member Role: Primary Care Nurse Name: Iris Villa RN Position: [facility] Hospital Sociology Instructor Member Role: Primary Care Nurse Care Team Related Persons Name: MARY GRACE KEATING Name: BLOW MOLD OPERATORGREGG Name: CARLOS PAZ Insurance Providers Guarantor name: [facility] Plan Information #: 1 Payer: MEDICARE B Payer Identifier: NA Member Number: [id number] Group Number: NA Subscriber Identifier: [id number] Relationship to Subscriber: self Coverage Type: NA Coverage Verification Date: NA Telecom: NA Address: [facility] Plan Information #: 2 Payer: [facility] [employer] Payer Identifier: MARLYN Member Number: [id number] Group Number: [id number] Subscriber Identifier: [id number] Relationship to Subscriber: self Coverage Type: MEDICAID Coverage Verification Date: MARLYN Telecom: NA Address:
--- OUTSIDE RECORDS SUMMARY | 2025-10-09 23:59 | XMS_ITS | Continuity of Care Document ---
Author Organization [facility] Adult Address [address] [place] [id number]- Support Name Relationship Address Phone FRISIUS, IGOR [...] FRISIUS, IGOR Personal Relationship Unknown Un available [facility] INDRA Other Unknow n Unavailable MASTER OF CEREMONIES, GREGG Other Unknown Carmita vailable FRISIUS, IGOR [...] Unknown Un available Care Team Providers Care Coach Professional Athletes Name Role Phone Maribel Marquez NP Primary Care Physician [id number] Date(s): 09/09/25 - 10/09/25 [facility] Adult [address] [place] [address]- Encounter Type: Triage Allergies, Adverse Reactions, Alerts Substance Criticality Severity [...] Vaccine 03/15/79 Recor ded 1Result Comment: Flu [facility] [id number] 2Result Comment: [facility]: [id number] 3Result Comment: [facility] [id number] 4Early/Late Reason: Nursing Judgment Medications Albuterol 0.083% Albuterol 0.083%, neb, 0 Refills, Maintenance, prn, 06/11/24 2:43:00 PM EDT Start Date: 06/11/24 Status: Ordered Medication Dispense Status: Completed Total Allowed Fills: 1 Fills Dispensed: 0 albuterol 0.083% inhalation solution 1 vials, Inhalation, 4 times a day, # 120 each, 5 Refills, Maintenance, 08/19/25 2:30:00 PM EST, [facility], 164, cm, 08/17/25 11:50:00 EST, [...] 11 Refills, Maintenance, 10/01/25 9:42:00 AM EST, [facility], 3 mL Inhalation 4 times a day,x30 [...] 8:27:00 AM EST, Route to Pharmacy Electronically, [facility], [...] tablet, 0 Refills, Maintenance, 09/30/25 7:29:00AM EST, [facility], Partial fill upon patient request [...] 10:33:00 AM EST, Route to Pharmacy Electronically, [facility], [...] 1 Refills, Maintenance, 02/27/25 8:44:00 AM EDT, [facility], Partial fill upon patient request [...] 0 Refills, Maintenance, 09/04/24 3:27:00 PM EST, [facility], 163.4, cm, 07/01/24 13:55:00 EDT, Height, 111, kg, :37:00 EDT, Dry Weight Start Date: 09/04/24 Status: Ordered Medication Dispense Status: Completed Quantity: 60.0 Unit: tablet Total Allowed Fills: 1 Fills Dispensed: 0 hydroCHLOROthiazide 12.5 mg oral capsule 1 capsule = 12.5 mg, By Mouth, Daily, # 90 capsule, 0 Refills, Maintenance, 09/11/25 1:10:00 PM EST, Capsule, [facility], Partial fill upon patient request if [...] 9:48:00 AM EDT, Route to Pharmacy Electronically, [facility], 163.4, cm, 03/25/25 14:50:00 EDT, Height, [...] 11:34:00 AM EST, 02/06/25 11:34:00 AM EDT, [facility], 163.4, cm, 02/06/25 11:19:00 EDT, Height, 111, kg, 04/23/24 5:37:00 EDT, Dry Weight Start Date: 02/06/25 Stop Date: 11/03/25 Status: Ordered Medication Dispense Status: Completed Quantity: 180.0 Unit: tablet Total Allowed Fills: 3 Fills Dispensed: 0 metFORMIN 500 mg oral tablet 1 tablet, By Mouth, 2 times a day, FOR DIABETES., # 180 tablet, 1 Refills, Maintenance, 11/03/25 11:34:00 AM EST, [facility], 163.4, cm, 02/12/25 9:18:00 EDT, Height, 111, kg, 04/23/24 5:37:00 EDT, Dry Weight Start Date: 11/03/25 Stop Date: 05/02/26 Status: Ordered Medication Dispense Status: Completed Quantity: 180.0 Unit: tablet Total Allowed Fills: 2 Fills Dispensed: 0 MiraLax oral powder for reconstitution = 17 Gm, By Mouth, Daily, # 238 Gm, 0 Refills, Maintenance, 12/01/23 6:35:00 PM EST, REC Powder, [facility], Partial fill upon patient request if [...] Refills, Maintenance, 11/16/22 10:34:00 AM EST, Tablet, [facility], Partial fill upon patient request if [...] 11:34:00 AM EDT, Route to Pharmacy Electronically, [facility], [...] 11:34:00 AM EST, Route to Pharmacy Electronically, [facility], Partial fill upon patient request if [...] 0 Refills, Maintenance, 08/14/25 3:44:00 PM EDT, [facility], Partial fill upon patient request if [...] Maintenance, 07/24/24 11:35:00 AM EDT, REC Powder, [facility], Partial fill upon patient request if [...] 0 Refills, Maintenance, 02/19/25 1:43:00 PM EDT, [facility], Partial fill upon patient request if [...] day, # 1 each, 11 Refills, Maintenance, 12/18/25 9:41:00 AM EST, Powder, [facility], asthma j45,9, 1 inhalation Inhalation Daily,x30 [...] Refills, Maintenance, 03/25/25 3:04:00 PM EDT, Powder, [facility], asthma j45.9, replaces advair, 1 puffs [...] 3 Refills, Maintenance, 02/06/25 11:35:00 AM EDT, [facility], Partial fill upon patient request if the prescription is for a schedule II opioid drug., 163.4, cm, 02/06/25 11:19:00 EDT, Height, 111, kg, 04/23/24 5:37:00 EDT, Dry Weight Start Date: 02/06/25 Stop Date: 02/01/26 Status: Ordered Medication Dispense Status: Completed Quantity: 180.0 Unit: tablet Total Allowed Fills: 4 Fills Dispensed: 0 Problem List Condition Confirmation Course Effective Dates [...] type 2 DM, encounter for Confirmed Active Social History Social History Type Response Smoking Status 10 or more cigarette s (1/2 pack or more)/day in last 30 days; Interested in cessation: No; Patient wants NRT during admission No entered on: 03/25/25 Sexual Orientation Self described orien tation: ; Straight or heterosexual Sex Female Sex Representation Female (finding) Patient Care team information Care Team Personnel Name: Rudi Ruiz RN Position: [facility] ED RN W/OE and Tasks Member Role: Primary Care Nurse Name: Rso Fu RN Position: [facility] RN Member Role: Primary Care Nurse Name: Rosana Kearney RN Position: [facility] SN RN Member Role: Primary Care Nurse Name: Wil Flood RN Position: [facility] RN Member Role: Primary Care Nurse Name: Gagandeep Sheldon RN Position: [facility] RN Member Role: Primary Care Nurse Name: Alba Daily RN Position: [facility] RN Member Role: Primary Care Nurse Name: Maribel Marquez NP Position: [facility] PCO Associate Professional Member Role: PCP Address: [address] [place] [id number] [place] Telecom: Name: Jose Ramirez RN Position: [facility] RN Member Role: Primary Care Nurse Name: Mackenzie Sanabria RN Position: [facility] RN Member Role: Primary Care Nurse Name: Nicole Hayes Position: [facility] MA Senior Software Test Engineer Member Role: Molasses Coloring Operator Name: Brittany Butts RN Position: [facility] AMB Nurse Member Role: Primary Care Nurse Name: Pauline Mcadams RN Position: [facility] RN Member Role: Primary Care Nurse Name: Mary Sánchez RN Position: [facility] RN Member Role: Primary Care Nurse Name: Shama Huber RN Position: [facility] RN Member Role: Primary Care Nurse Name: Jackie Snyder RN Position: [facility] RN Member Role: Primary Care Nurse Name: Rosana Tidwell RN Position: [facility] RN Member Role: Primary Care Nurse Name: Jay Burks NP Position: Reference Physician Member Role: Primary Care Nurse Address: [address] [facility] [place] [address]- Telecom: Name: Parvez Kaba MD Position: [facility] Renal MD Member Role: Lifetime Consulting Physician Address: [address] [facility] [place] [address]- Telecom: Name: Mirna Paul RN Position: [facility] OB RN Member Role: Primary Care Nurse Name: Latonya Rahman RN Position: [facility] Onco RN Member Role: Primary Care Nurse Name: Viki Gonzalez RN Position: [facility] RN Member Role: Primary Care Nurse Name: Claudia Presley RN Position: [facility] RN Member Role: Primary Care Nurse Name: Iris Villa RN Position: [facility] Hospital Insole Toe Snipping Machine Operator Member Role: Primary Care Nurse Care Team Related Persons Name: MARY GRACE KEATING Name: MASTER OF CEREMONIESGREGG Name: CARLOS PAZ Insurance Providers Guarantor name: IGOR [facility] Plan Information #: 1 Payer: MEDICARE B Payer Identifier: MARLYN Member Number: [id number] Group Number: Subscriber Identifier: Relationship to Subscriber: self Coverage Type: NA Coverage Verification Date: NA Telecom: NA Address: Health Plan Information #: 2 [facility] Payer Identifier: MARLYN Member Number: [id number] Group Number: Subscriber Identifier: NA Relationship to Subscriber: self Coverage Type: MEDICAID Coverage Verification Date: NA Telecom: NA Address: NA
--- NOTE | 2025-10-10 | ECG_ITS ---
Test Reason : CHEST PAIN Blood Pressure : */* mmHG Vent. Rate : 113 BPM Atrial Rate : 113 BPM P-R Int : 186 ms QRS Dur : 82 ms QT Int : 332 ms P-R-T Axes : 37 21 49 degrees QTcB Int : 455 ms Poor data quality, interpretation may be adversely affected Sinus tachycardia Left atrial enlargement Septal infarct , age undetermined Abnormal ECG When compared with ECG of 20-Jun-2025 15:13, Septal infarct is now Present Referred By: Generic ED Physician Electronically Signed By: DONALD HOOKER MD
--- NOTE | ~2025-10-10 | XR_ITS ---
CLINICAL HISTORY: CP 1 view chest x-ray Comparison: CR - XR CHEST 2V - 03/07/25 09:14 EDT Findings: The lungs are clear. Heart size is normal. No acute fracture. IMPRESSION: 1. No acute findings. This document has been electronically signed by: Alexx Kennedy MD on 10/10/2025 23:08:28
[2025-10-10 22:46] VITALS: BP 174/76; PULSE 124; O2SAT 96; BMI 31.9
[2025-10-10 23:29] LABS: Hematocrit 38.4 % (37.0-47.0); Hemoglobin 13.1 g/dl (12.0-16.0); Imm Gran Abs Auto 0.05 X10*3/uL (0.00-0.03); Imm Gran Pct Auto 0.7 % (0.0-0.4); Lymphocytes Absolute Auto 1.7 X10*3/uL (1.2-4.9); MANUAL DIFF FLAG NO; Mean Corpuscular HGB Conc 34.1 g/dl (31.0-35.0); Mean Corpuscular Hemoglobin 30.4 pg (27.0-33.0); Mean Corpuscular Volume 89.1 fL (80.0-98.0); NRBC Abs Auto 0.000 X10*3/uL (0.0-0.012); NRBC Pct Auto 0.0 /100WBC (0.0-0.2); Platelet Count 271 X10*3/uL (160-400); Red Blood Count 4.31 X10*6/uL (4.20-5.50); White Blood Count 6.8 X10*3/uL (4.8-10.8)
[2025-10-10 23:41] VITALS: BP 105/73; PULSE 116; RESP 16; TEMP 36.5; O2SAT 95
[2025-10-10 23:43] LABS: Alanine Aminotransferase 23 U/L (0-31); Albumin Level 4.5 g/dL (3.5-5.0); Alkaline Phosphatase 150 U/L (39-117); Anion Gap 14 (12-20); Aspartate Amino Transferase 20 U/L (5-31); Blood Urea Nitrogen 8 mg/dL (9-16); Calcium 9.2 mg/dL (8.4-10.2); Carbon Dioxide 24 mmol/L (22-29); Chloride 107 mmol/L (96-108); Creatinine Clr Calc Pharmacy 113.5; Estimated Glomerular Filt Rate > 60; Magnesium 1.7 mg/dL (1.6-2.6); Potassium 3.4 mmol/L (3.3-5.1); Sodium 142 mmol/L (135-145); Total Protein 6.7 g/dL (6.5-8.0)
[2025-10-10 23:52] LABS: Troponin-I High Sensitivity < 2.7 ng/L (<3.5-17.0)
[2025-10-11 00:22] LABS: Appearance Urine Clear; Glucose Urine UA Negative (Negative); PH 6.0 (5.0-9.0); Specific Gravity - Urine <= 1.005 (1.005-1.025)
--- NOTE | 2025-10-11 01:15 | ED.CHESTPAIN ---
HPI - Chest Pain General Chief Complaint: Chest Pain Stated Complaint: CP Time Seen by Provider: 10/10/25 22:49 History of Present Illness HPI narrative: 49-year-old female with a history of PTSD, depression, GERD, type 2 diabetes borderline personality disorder, chronic auditory and visual hallucinations, chronic suicidal ideation, chronic cutting behaviors presents with chest pain prior to arrival. Patient states she was smoking a cigarette when she developed left anterior chest discomfort. Pain worse with palpation of chest wall. The patient states she has been ?coughing for a long time?. Denies new heavy lifting that could have triggered symptoms. Denies fever. Denies shortness of breath or wheezing. Related Data Home Medications ?Medication ?Instructions ?Recorded ?Confirmed albuterol sulfate 90 mcg/actuation 2 puff inhalation Q6H PRN Wheezing 06/24/24 07/23/25 aerosol inhaler clozapine 100 mg tablet 200 mg PO BEDTIME 06/24/24 07/23/25 prazosin 2 mg capsule 4 mg PO BEDTIME 06/24/24 07/23/25 metformin 500 mg tablet 500 mg PO BID 07/15/24 07/23/25 atorvastatin 10 mg tablet 10 mg PO DAILY 05/23/25 07/23/25 lorazepam 0.5 mg tablet 0.5 mg PO BID PRN Anxiety 05/23/25 07/23/25 mirtazapine 15 mg tablet 15 mg PO BEDTIME 05/23/25 07/23/25 ascorbic acid (vitamin C) 500 mg 500 mg PO BID 06/18/25 07/23/25 tablet (Vitamin C) benztropine 1 mg tablet 1 mg PO BID 06/18/25 07/23/25 buspirone 10 mg tablet 10 mg PO BID 06/18/25 07/23/25 temazepam 15 mg capsule 15 mg PO BEDTIME PRN Insomnia 06/18/25 07/23/25 docusate sodium 100 mg capsule 100 mg PO BID 07/23/25 07/23/25 haloperidol 10 mg tablet 10 mg PO BEDTIME 07/23/25 07/23/25 hydrochlorothiazide 12.5 mg tablet 12.5 mg PO DAILY 07/23/25 07/23/25 mirtazapine 15 mg tablet 15 mg PO BEDTIME 07/23/25 07/23/25 Previous Rx's ?Medication ?Instructions ?Recorded amlodipine 2.5 mg tablet 7.5 mg PO DAILY 30 days #90 tabs 06/01/25 haloperidol 5 mg tablet 15 mg (3 x 5 mg) PO BEDTIME 30 06/01/25 days #90 tabs hydrochlorothiazide 12.5 mg tablet 12.5 mg PO DAILY 30 days #30 tabs 06/01/25 haloperidol 5 mg tablet 5 mg PO BID@0900,1500 #60 tabs 06/23/25 famotidine 20 mg tablet 20 mg PO BID 30 days #60 tabs 07/29/25 nicotine 21 mg/24 hr daily 1 patch transdermal DAILY PRN 07/29/25 transdermal patch nicotine cravings 28 days #28 ea Allergies Allergy/AdvReac Type Severity Reaction Status Date / Time azithromycin (AZITHROMYCIN) Allergy Severe Rash Verified 10/10/25 22:48 Fish Containing Products Allergy Severe Anaphylaxis Verified 10/10/25 22:48 codeine (Codeine) Allergy Intermediate Rash Verified 10/10/25 22:48 Penicillins Allergy Intermediate Rash Verified 10/10/25 22:48 prednisone (Prednisone) Allergy Intermediate Rash Verified 10/10/25 22:48 Sulfa (Sulfonamide Allergy Intermediate Rash Verified 10/10/25 22:48 Antibiotics) (Sulfa (Sulfonamides)) ziprasidone (From Geodon) Allergy Intermediate dysuria, Verified 10/10/25 22:48 rash lithium Allergy Unknown Rash Verified 10/10/25 22:48 Review of Systems Review of Systems: Yes all other systems are reviewed and are negative Constitutional: Constitutional: Denies fatigue and Denies fever(s) Cardiovascular: Cardiovascular: Reports chest pain and Denies dyspnea Respiratory: Respiratory: Reports cough, Denies dyspnea and Denies wheezing Gastrointestinal: Gastrointestinal: Denies abdominal pain, Denies nausea and Denies vomiting Endocrine: Endocrine: Denies fatigue Allergic/Immunologic: Allergic/Immunologic: Denies wheezing PMFSH Past Medical History Attestation statement: The following information was validated with the patient. Medical History Suicidal ideation Asthma Suicidal ideation MDD (major depressive disorder), recurrent episode, severe Chest pain Acute anxiety COVID-19 Full body hives Major depression Dizziness Suicide attempt UTI (urinary tract infection) Acetaminophen overdose COVID History of attempted suicide History of non-suicidal self-harm Hypomagnesemia Suicide attempt Suicide attempt by acetaminophen overdose Acetaminophen overdose Depression Diabetes type 2, controlled Borderline personality disorder PTSD (post-traumatic stress disorder) Overdose GERD (gastroesophageal reflux disease) Mood disorder Hyperlipidemia Bronchitis Social History Social History Household Members: Other Household Members Other:: Lives at a skilled nursing Housing: Other Housing Other:: care home Do you presently have visiting nurse or other home services: No Alcohol intake: never Comment: sitter in room Patient Tobacco Use Status: Current everyday Tobacco user Tobacco use type: Cigarette Cigarette Packs Per Day: 1 Cigarettes Per Day: 20.0 Years Smoked: 20 e-Cigarette/Vaping Use: Never Used Second Hand Smoke Exposure: No Substance Use Type: Caffiene service: No Current occupational status: unemployed and disabled Sexual orientation: Straight/Heterosexual Physical Exam Vital Signs: Vital Signs: Last Vital Signs Temp 97.7 F 10/10/25 23:41 Pulse 116 H 10/10/25 23:41 Resp 16 10/10/25 23:41 BP 105/73 10/10/25 23:41 Pulse Ox 95 10/10/25 23:41 O2 Del Method Room Air 10/10/25 23:41 BMI result Body Mass Index 31.9 Const: Other: Alert Orientation/consciousness: patient oriented x3 Resp: Other: Lungs clear to auscultation no bronchospasm, no wheezing no crackles not tachypneic Cardio: Other: Normal peripheral perfusion Skin: Other: Warm dry no rash Neuro: General: patient oriented x3, gait normal, no focal motor deficits and CN's II-XI intact bilaterally Psych: Other: Cooperative Medical Decision Making Medical Decision Making MDM Narrative: 49-year-old female with a history of asthma, PTSD, depression, GERD, type 2 diabetes borderline personality disorder, chronic auditory and visual hallucinations, chronic suicidal ideation, chronic cutting behaviors presents with chest pain prior to arrival. Patient states she was smoking a cigarette when she developed left anterior chest discomfort. Pain worse with palpation of chest wall. The patient states she has been ?coughing for a long time?. Denies new heavy lifting that could have triggered symptoms. Denies fever. Denies shortness of breath or wheezing. Problem: Diabetes, psychiatric illness, tobacco abuse History: Per patient I have considered the following differential diagnoses: Pneumonia, bronchitis, viral syndrome, ACS, costochondritis, chest wall strain , asthma exacerbation Plan: ACS was considered, screening labs including cardiac enzymes EKG and chest x-ray obtained. Sounds as if the patient has been having viral related symptoms, this could be a cause for her chest discomfort. Her pain is most consistent with chest wall pain, it is reproducible with palpation. Her lungs are clear, she has no bronchospasm, she is not wheezing to suggest an asthma exacerbation. I have independently reviewed the following tests: Labs: No leukocytosis, not anemic, no electrolyte abnormality, troponin < 2.7 EKG: Sinus tachycardia, rate of 113, no ectopy, no active ischemic changes, QTC 455.... Great deal of artifact on the EKG tonight, when compared to prior study no significant change found Chest x-ray:Findings: The lungs are clear. Heart size is normal. No acute fracture. IMPRESSION: 1. No acute findings. Differential Diagnosis Differential Diagnoses: The differential diagnosis associated with the presentation includes See [facility] Admission/Observation Consideration of admission/observation: Escalation of care including admission/observation considered Not applicable Lab Data [facility] Lab Attestation statement: I reviewed the patient's lab results. 10/10/25 23:24 10/10/25 23:24 Labs: Lab Results 10/10/25 10/11/25 Range/Units 23:24 00:10 WBC 6.8 (4.8-10.8) X10*3/uL RBC 4.31 (4.20-5.50) X10*6/uL Hgb 13.1 (12.0-16.0) g/dl Hct 38.4 (37.0-47.0) % MCV 89.1 (80.0-98.0) fL MCH 30.4 (27.0-33.0) pg MCHC 34.1 (31.0-35.0) g/dl RDW 12.5 (11.0-16.0) % Plt Count 271 (160-400) X10*3/uL MPV 8.9 L (9.4-12.3) fL Immature Gran % (Auto) 0.7 H (0.0-0.4) % Neut % (Auto) 60.7 (45-73) % Lymph % (Auto) 25.2 (20-40) % [place] % (Auto) 8.5 (2-11) % Eos % (Auto) 4.5 H (0-4) % Baso % (Auto) 0.4 (0-2) % Lymph # (Auto) 1.7 (1.2-4.9) X10*3/uL [place] # (Auto) 0.6 (0.1-1.2) X10*3/uL Eos # (Auto) 0.3 (0.0-0.4) X10*3/uL Baso # (Auto) 0.0 (0.0-0.2) X10*3/uL Abs Immat Gran (auto) 0.05 H (0.00-0.03) X10*3/uL Absolute Neuts (auto) 4.1 (2.0-8.3) x10*3/uL Absolute Nucleated RBC 0.000 (0.0-0.012) X10*3/uL Nucleated RBC % (auto) 0.0 (0.0-0.2) /100WBC Sodium 142 (135-145) mmol/L Potassium 3.4 (3.3-5.1) mmol/L Chloride 107 (96-108) mmol/L Carbon Dioxide 24 (22-29) mmol/L Anion Gap 14 (12-20) BUN 8 L (9-16) mg/dL Creatinine 0.62 (0.5-1.4) mg/dL Estim Creat Clear Calc 113.5 Estimated GFR > 60 Random Glucose 167 H (60-115) mg/dL Calcium 9.2 (8.4-10.2) mg/dL Magnesium 1.7 (1.6-2.6) mg/dL Total Bilirubin 0.2 (0.0-1.0) mg/dL AST 20 (5-31) U/L ALT 23 (0-31) U/L Alkaline Phosphatase 150 H (39-117) U/L Troponin I High Sens < 2.7 (<3.5-17.0) ng/L Total Protein 6.7 (6.5-8.0) g/dL Albumin 4.5 (3.5-5.0) g/dL Urine Color Yellow Urine Appearance Clear Urine pH 6.0 (5.0-9.0) Ur Specific [place] <= 1.005 (1.005-1.025) Urine Protein Negative (Neg-Trace) mg/dL Urine Glucose (UA) Negative (Negative) mg/dL Urine Ketones Negative (Negative) mg/dL Urine Blood Negative (Negative) Urine Nitrite Negative (Negative) Ur Leukocyte Esterase Negative (Negative) Independent Interpretation I performed an independent interpretation of an: EKG Radiology Impression Discussion of test interpretation with radiology: I have reviewed the radiologist's reading. Discharge Plan Discharge Clinical Impression: Chest wall pain Patient Disposition: Home, Self-Care Instructions: Chest Wall Pain (ED) Additional Instructions: Your symptoms and exam are consistent with chest wall pain. See home care instructions. All of your screening labs including a cardiac enzymes were normal, there were no concerning changes on the EKG in the chest x-ray is clear. Follow up with your primary care provider as needed. Prescriptions: No Action atorvastatin 10 mg tablet 10 mg PO DAILY lorazepam 0.5 mg tablet 0.5 mg PO BID PRN (Reason: Anxiety) Rx Instructions: Take 1 tablet at 9am and 1 tablet at 4pm mirtazapine 15 mg tablet 15 mg PO BEDTIME ascorbic acid (vitamin C) [Vitamin C] 500 mg Tablet 500 mg PO BID buspirone 10 mg Tablet 10 mg PO BID benztropine 1 mg Tablet 1 mg PO BID temazepam 15 mg Capsule 15 mg PO BEDTIME PRN (Reason: Insomnia) haloperidol 5 mg Tablet 5 mg PO BID@0900,1500 Qty: 60 0RF clozapine 100 mg tablet 200 mg PO BEDTIME albuterol sulfate 90 mcg/actuation HFA aerosol inhaler 2 puff inhalation Q6H PRN (Reason: Wheezing) prazosin 2 mg capsule 4 mg PO BEDTIME metformin 500 mg tablet 500 mg PO BID amlodipine 2.5 mg Tablet 7.5 mg PO DAILY 30 Days Qty: 90 0RF Protocol: Hold for SBP< HOLD for SBP < : 90 hydrochlorothiazide 12.5 mg Tablet 12.5 mg PO DAILY 30 Days Qty: 30 0RF Protocol: Hold for SBP< HOLD for SBP < : 90 haloperidol 5 mg Tablet 15 mg PO BEDTIME 30 Days Qty: 90 0RF haloperidol 10 mg tablet 10 mg PO BEDTIME docusate sodium 100 mg capsule 100 mg PO BID mirtazapine 15 mg tablet 15 mg PO BEDTIME hydrochlorothiazide 12.5 mg tablet 12.5 mg PO DAILY famotidine 20 mg Tablet 20 mg PO BID 30 Days Qty: 60 0RF nicotine 21 mg/24 hr patch 24 hour 1 patch transdermal DAILY PRN (Reason: nicotine cravings) 28 Days Qty: 28 0RF Rx Instructions: remove at bedtime Print Language: Hungarian
[2025-10-11 02:13] VITALS: BP 109/67; PULSE 108; RESP 16; TEMP 36.5; O2SAT 96
--- OUTSIDE RECORDS SUMMARY | 2025-10-11 02:15 | XMS_ITS | Encounter Summary ---
Author Organization [facility] Prior to 08/15/2024 Address [address] [place] [address] Care Team Providers Care Manager City Name Role Phone Nikki Alcantar MD Primary Care Provider [phone] Michelle Norris MD Primary Care Provider Unavail able [facility] Primary Care Provider [facility] Michelle Norris MD Primary Care Provider Unavail able Rosetta Diamond MD Primary Care Provider + Encounter Details Date Type Department Care Team Description 03/28/2016 Hospital Medical Records [address] [place] [address] Social History Tobacco Use Types Packs/Day Years [...] filedocumented in this encounter Care Teams Manager City Relationship Specialty Start Date End Date Nikki Alcantar MD [address] [place] [address] PCP - General 06/26/05 03/04/17 Michelle Norris MD [address] [place] [address] PCP - General Internal Medicine 03/05/17 03/16/21 [facility], Pcp [address] [place], [place] [id number] PCP - General Internal Medicine 03/17/21 05/04/21 Michelle Norris MD [address] [place] [id number] PCP - General Internal Medicine 05/05/21 09/13/22 Rosetta Diamond MD [address] [place] [id number] PCP - General Internal Medicine 09/14/22 documented as of this encounter
--- OUTSIDE RECORDS SUMMARY | 2025-10-11 02:15 | XMS_ITS | Encounter Summary ---
Author Organization [facility] Prior to 08/15/2024 Address [address] [place] [address] Care Team Providers Care Associate Professor Of Communication Name Role Phone Nikki Alcantar MD Primary Care Provider [phone] Michelle Norris MD Primary Care Provider Unavail able [facility] Primary Care Provider [facility] Michelle Norris MD Primary Care Provider Unavail able Rosetta Diamond MD Primary Care Provider + Encounter Details Date Type Department Care Team Description 11/25/2015 Hospital Medical Records [address] [place] [id number] Petey Kate Social History Tobacco Use Types [...] this encounter Care Teams Associate Professor Of Communication Relationship Specialty Start Date End Date Nikki Alcantar MD [address] [place] [id number] PCP - General 06/26/05 03/04/17 Michelle Norris MD [address] [place] [address] PCP - General Internal Medicine 03/05/17 03/16/21 [facility], Pcp [address] [place] [address] PCP - General Internal Medicine 03/17/21 05/04/21 Michelle Norris MD [address] [place] [id number] PCP - General Internal Medicine 05/05/21 09/13/22 Rosetta Diamond MD [address] [place] [id number] PCP - General Internal Medicine 09/14/22 documented as of this encounter
--- OUTSIDE RECORDS SUMMARY | 2025-10-11 02:15 | XMS_ITS | Clinical Summary ---
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 posterior pleuraleffusions seen on 07/15/2025 are difficult to assess in the absence of alateral view on the current study. Code 71317 -------- FINAL REPORT -------- Dictated By: Jefe Agrawal Dictated Date: 09/09/2025 07:57 ET Assigned Physician: Jefe Agrawal Reviewed and Electronically Signed By: Jefe Agrawal Signed Date: 09/09/2025 08:00 ET Workstation ID: [id number] Transcribed By: Self Edit Transcribed Date: 09/09/2025 07:57 ET Cara Leon MD IMG XR PROCEDURES Final Result * ECG-Annotated (09/09/2025) Only the most recent of5 resultswithin the time period is included. us Provider Onbase ECG ORDERABLES Final Result * XR Abdomen 1 View (08/15/2025 5:25 PM EDT) Anatomical Region Laterality Modality Body Radiographic Renata ging 08/15/2025 5:49 PM EDT Impressions 08/15/2025 5:50 PM EDT No evidence of small bowel obstruction. Large amount of fecal residue throughout the colon. -------- FINAL REPORT -------- Dictated By: Augusto Medel Dictated Date: 08/15/2025 17:49 ET Assigned Physician: Augusto Medel Reviewed and Electronically Signed By: Augusto Medel Signed Date: 08/15/2025 17:50 ET Workstation ID: [id number] Transcribed By: Self Edit Transcribed Date: 08/15/2025 17:49 ET Narrative 08/15/2025 5:50 PM EDT EXAMINATION: ABDOMEN CLINICAL INFORMATION: Constipation COMPARISON: Frontal view 09/28/12 TECHNIQUE: Frontal view of the abdomen FINDINGS: No suspicious calcification. There is a moderate amount of gas and enteric material within large and small bowel throughout the abdomen and pelvis to the region of the rectum. There is a large amount of fecal residue throughout the colon. No definite evidence of pneumoperitoneum on this supine view. There is some probable pleural reaction in the lower chest similar to 2012. Procedure Note Augusto Medel MD - 08/15/2025 EXAMINATION: ABDOMEN CLINICAL INFORMATION: Constipation COMPARISON: Frontal view 09/28/12 TECHNIQUE: Frontal view of the abdomen FINDINGS: No suspicious calcification. There is a moderate amount of gas and entericmaterial within large and small bowel throughout the abdomen and pelvis tothe region of the rectum. There is a large amount of fecal residuethroughout the colon. No definite evidence of pneumoperitoneum on this supine view. There is some probable pleural reaction in the lower chest similar [id number]. IMPRESSION: No evidence of small bowel obstruction. Large amount of fecal residuethroughout the colon. -------- FINAL REPORT -------- Dictated By: Augusto Medel Dictated Date: 08/15/2025 17:49 ET Assigned Physician: Augusto Medel Reviewed and Electronically Signed By: Augusto Medel Signed Date: 08/15/2025 17:50 ET Workstation ID: [id number] Transcribed By: Self Edit Transcribed Date: 08/15/2025 17:49 ET Rigo Hirsch MD IMG XR PROCEDURES Final Result * hCG, serum, qualitative (08/15/2025 4:32 PM EDT) [facility] hCG Qual Negative Negative 08/15/2025 5:16 PM EDT [facility] Blood Venous blood specimen / Unknown Venipuncture / Unknown 08/15/2025 4:32 PM EDT 08/15/2025 4:46 PM EDT Rigo Hirsch MD LAB BLOOD ORDERABLES Final Resul t [facility] [address] [place] [address], [place] [phone] * (ABNORMAL) POCT Glucose, blood (07/23/2025 8:59 PM EDT) Only the most recent of8 resultswithin the time period is included. [facility] Glucose POCT 127(H) 70 - 100 mg/dL 07/23/2025 9:00 PM EDT [facility] Blood Capillary blood specimen / Unknown 07/23/2025 8:59 PM EDT 07/23/2025 9:01 PM EDT us Sergei Werner MD LAB POINT OF C ARE TEST DOCKED DEVICE UNSOLICITED RESULTS Final Result [facility] [address] [place] [address], * (ABNORMAL) Basic metabolic panel (07/23/2025 6:10 AM EDT) Sodium 141 133 - 145 mmol/L LAB CHEMISTRY METHOD 07/23/2025 7:25 AM [facility] Potassium 3.8 3.5 - 5.5 mmol/L LAB CHEMISTRY METHOD 07/23/2025 7:25 AM [facility] Chloride 109 96 - 110 mmol/L LAB CHEMISTRY METHOD 07/23/2025 7:25 AM [facility] CO2 26 21 - 32 mmol/L LAB CHEMISTRY METHOD 07/23/2025 7:25 AM [facility] Anion Gap 6 3 - 11 LAB CHEMISTRY METHOD 07/23/2025 7:25 AM [facility] Glucose 134(H) 70 - 100 mg/dL LAB CHEMISTRY METHOD 07/23/2025 7:25 AM [facility] BUN 10 5 - 25 mg/dL LAB CHEMISTRY METHOD 07/23/2025 7:25 AM [facility] Creatinine 0.70 0.50 - 1.10 mg/dL LAB CHEMISTRY METHOD 07/23/2025 7:25 AM [facility] eGFR 108 >=60 mL/min/1. 73m2 LAB CHEMISTRY METHOD 07/23/2025 7:25 AM [facility] Comment:Calculation based on the Chronic Kidney Disease Epidemiology Collaboration (CKD-EPI) equation refit without adjustment for race. BUN/Creatinine Ratio 14.3 LAB CHEMISTRY METHOD 07/23/2025 7:25 AM EDT [facility] Calcium 8.6 8.5 - 10.5 mg/dL LAB CHEMISTRY METHOD 07/23/2025 7:25 AM EDT [facility] Blood Venous blood specimen / Unknown Venipuncture / Unknown 07/23/2025 6:10 AM EDT 07/23/2025 6:30 AM EDT us Donavon Morton MD LAB BLOOD ORDERABLES Final Result Performing Organization Address [facility] Co de Phone Number [facility] [address] [place] [address], [place] [phone] * Osmolality (07/22/2025 6:42 AM EDT) Only the most recent of2 resultswithin the time period is included. Osmolality Nurys 299 280 - 300 mOsm/kg LAB CHEMISTRY METHOD 07/22/2025 7:40 AM EDT [facility] Blood Venous blood specimen / Unknown Venipuncture / Unknown 07/22/2025 6:42 AM EDT 07/22/2025 6:48 AM EDT us Donavon Morton MD LAB BLOOD ORDERABLES Final Result Performing Organization Address City/[facility]/ZIP Co de Phone Number [facility] [address] [place] [address], [place] [phone] * (ABNORMAL) Venous blood gas (07/22/2025 6:42 AM EDT) Only the most recent of2 resultswithin the time period is included. pH, Carlos Alberto 7.42 7.32 - 7.42 pH 07/22/2025 6:51 AM EDT [facility] pCO2, Carlos Alberto 49 41 - 51 mmHg 07/22/2025 6:51 AM EDT [facility] pO2, Carlos Alberto 47(H) 25 - 40 mmHg 07/22/2025 6:51 AM EDT [facility] HCO3, Venous 29.2(H) 22.0 - 26.0 mmol/L 07/22/2025 6:51 AM EDT [facility] O2 Sat, Carlos Alberto 80.9 % 07/22/2025 6:51 AM EDT [facility] Base Excess, Carlos Alberto 6.1(H) -2.0 - 2.0 mmol/L 07/22/2025 6:51 AM EDT [facility] Blood Venous blood specimen / Unknown Venipuncture / Unknown 07/22/2025 6:42 AM EDT 07/22/2025 6:47 AM EDT Donavon Morton MD LAB BLOOD ORDERABLES Final Result Performing Organization Address [facility]/ZIP Co de Phone Number [facility] [address] [place] [address], [place] [phone] * (ABNORMAL) Acetaminophen level (07/22/2025 12:32 AM EDT) Only the most recent of3 resultswithin the time period is included. Acetaminophen Level <2.0(L) 10.0 - 30.0 mcg/mL LAB CHEMISTRY METHOD 07/22/2025 1:18 AM EDT [facility] Blood Venous blood specimen / Unknown Venipuncture / Unknown 07/22/2025 12:32 AM EDT 07/22/2025 12:36 AM EDT Karolina Gracia MD LAB BLOOD ORDERABLES Final Res ult Performing Organization Address City/[facility]/ZIP Co de Phone Number [facility] [address] [place] [address], [place] [phone] * Volatiles screen (07/21/2025 9:50 PM EDT) Scan Result See Scanned Result 07/22/2025 8:05 AM EDT [facility] Blood Venous blood specimen / Unknown Venipuncture / Unknown 07/21/2025 9:50 PM EDT 07/21/2025 10:12 PM EDT Karolina Gracia MD LAB BLOOD ORDERABLES Final Res ult Performing Organization Address City/[facility]/ZIP Co de Phone Number [facility] [address] [place] [address], * Beta hydroxybutyrate (07/21/2025 9:50 PM EDT) [facility] Beta-Hydroxybu tyrate 1.1 0.2 - 2.8 mg/dL LAB CHEMISTRY METHOD 07/21/2025 10:57 PM EDT [facility] Blood Venous blood specimen / Unknown Venipuncture / Unknown 07/21/2025 9:50 PM EDT 07/21/2025 10:12 PM EDT Karolina Gracia MD LAB BLOOD ORDERABLES Final Res ult Performing Organization Address [facility]/ZIP Mt de Phone Number [facility] [address] [place] [address], * Ethanol (07/21/2025 9:50 PM EDT) Only the most recent of2 resultswithin the time period is included. Ethanol Level 6 0 - 10 mg/dL LAB CHEMISTRY METHOD 07/22/2025 12:26 AM EDT [facility] Blood Venous blood specimen / Unknown Venipuncture / Unknown 07/21/2025 9:50 PM EDT 07/21/2025 10:12 PM EDT Julian Clarke MD LAB BLOOD ORDERABLES Final R esult Performing Organization Address [facility]/ZIP Co de Phone Number [facility] [address] [place] [address], [place] [phone] * Salicylate level (07/21/2025 9:50 PM EDT) Only the most recent of2 resultswithin the time period is included. Salicylate Level 3.5 2.0 - 29.0 mg/dL LAB CHEMISTRY METHOD 07/21/2025 11:53 PM EDT [facility] Blood Venous blood specimen / Unknown Venipuncture / Unknown 07/21/2025 9:50 PM EDT 07/21/2025 10:12 PM EDT Julian Clarke MD LAB BLOOD ORDERABLES Final R esult Performing Organization Address [facility] Co de Phone Number [facility] [address] [place] [address], [place] [phone] * Drug abuse screen 8a panel, urine (07/21/2025 9:21 PM EDT) Only the most recent of2 resultswithin the time period is included. [facility] Signature Amphetamine Screen, Ur Negative Negative LAB CHEMISTRY METHOD 07/21/2025 10:15 PM EDT [facility] Comment:Certain OTC medicati ons containing ephedrine, phenylephrine, pseudoephedrine and phenylpropanolamine can cause false positive results. Barbiturate Screen, Ur Negative Negative LAB CHEMISTRY METHOD 07/21/2025 10:15 PM EDT [facility] Benzodiazepine Screen, Ur Negative Negative LAB CHEMISTRY METHOD 07/21/2025 10:15 PM EDT [facility] Cocaine Screen, Ur Negative Negative LAB CHEMISTRY METHOD 07/21/2025 10:15 PM EDT [facility] Opiate Screen, Ur Negative Negative LAB CHEMISTRY METHOD 07/21/2025 10:15 PM EDT [facility] Cannabinoid (THC) Screen, Ur Negative Negative LAB CHEMISTRY METHOD 07/21/2025 10:15 PM EDT [facility] Comment:Specimens from patie nts taking pantoprazole sodium (Protonix) have been shown to produce false positive results. Oxycodone Screen, Ur Negative Negative LAB CHEMISTRY METHOD 07/21/2025 10:15 PM EDT [facility] Fentanyl, Ur Negative Negative LAB CHEMISTRY METHOD 07/21/2025 10:15 PM EDT [facility] Urine Urine specimen obtained by clean catch procedure / Unknown Non-blood Collection / Unknown 07/21/2025 9:21 PM EDT 07/21/2025 9:37 PM EDT [facility] - 07/21/2025 10:15 PM EDT Assay cutoffs: Amphetamines 1000 ng/mL Barbiturates 200 ng/mL Benzodiazepines 200 ng/mL Cocaine 300 ng/mL Fentanyl 1 ng/mL Opiates 300 ng/mL Oxycodone 100 ng/mL THC 50 ng/mL Semi-quantitative assay for screening purposes only. Unconfirmed screening result should not be used for non-medical purposes. *ALTERNATE METHOD CONFIRMATION DONE UPON REQUEST ONLY* Karolina Gracia MD LAB URINE ORDERABLES Final Res ult [facility] [address] [place] [address], * Buprenorphine screen, urine (07/21/2025 9:21 PM EDT) Only the most recent of2 resultswithin the time period is included. Buprenorphine Screen Urine Negative Negative LAB CHEMISTRY METHOD 07/21/2025 10:15 PM EDT [facility] Urine Urine specimen obtained by clean catch procedure / Unknown Non-blood Collection / Unknown 07/21/2025 9:21 PM EDT 07/21/2025 9:37 PM EDT [facility] - 07/21/2025 10:15 PM EDT Assay cutoff 5 ng/mL Semi-quantitative assay for screening purposes only. Unconfirmed screening result should not be used for non-medical purposes. *ALTERNATE METHOD CONFIRMATION DONE UPON REQUEST ONLY* Karolina Gracia MD LAB URINE ORDERABLES Final Res ult Performing Organization Address [facility] de Phone Number [facility] [address] [place] [address], * Methadone, urine (07/21/2025 9:21 PM EDT) Only the most recent of2 resultswithin the time period is included. Methadone Screen, Urine Negative Negative LAB CHEMISTRY METHOD 07/21/2025 10:15 PM EDT [facility] Comment: Assay cutoff 300 ng/mL Semi-quantitative assay for screening purposes only. Unconfirmed screening result should not be used for non-medical purposes. *ALTERNATE METHOD CONFIRMATION DONE UPON REQUEST ONLY* Urine Urine specimen obtained by clean catch procedure / Unknown Non-blood Collection / Unknown 07/21/2025 9:21 PM EDT 07/21/2025 9:37 PM EDT Karolina Gracia MD LAB URINE ORDERABLES Final Res ult Performing Organization Address [facility] de Phone Number [facility] [address] [place] [address], * Phencyclidine, urine (07/21/2025 9:21 PM EDT) Only the most recent of2 resultswithin the time period is included. PCP Scrn, Ur Negative Negative LAB CHEMISTRY METHOD 07/21/2025 10:15 PM EDT [facility] Comment: Assay cutoff 25 ng/mL Semi-quantitative assay for screening purposes only. Unconfirmed screening result should not be used for non-medical purposes. *ALTERNATE METHOD CONFIRMATION DONE UPON REQUEST ONLY* Urine Urine specimen obtained by clean catch procedure / Unknown Non-blood Collection / Unknown 07/21/2025 9:21 PM EDT 07/21/2025 9:37 PM EDT Karolina Gracia MD LAB URINE ORDERABLES Final Res ult [facility] ([facility]) [facility] [address] [place] [address], [place] [phone] * Pap smear (04/22/2024) 04/22/2024 Narrative HISTORICAL TESTING LAB RESULTING AGENCY - 04/28/2024 11:46 AM EDT [id number] THINPREP PAP, IMAGED: NEGATIVE FOR SQUAMOUS INTRAEPITHELIAL [...] Health Maintenance Insurance [place]IC[place] Advance Directives Documents on File Type Date Recorded 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 Do not modify or discontinue any currently active code status orders. Care Teams Changeover Operator Relationship Specialty Start Date End Date Maribel Marquez [address] [place] [id number] PCP - General 09/08/24
--- OUTSIDE RECORDS SUMMARY | 2025-10-11 02:15 | XMS_ITS | Encounter Summary ---
Author Organization [facility] Prior to 08/15/2024 Address [address] [place] [address] Care Team Providers Care Shuttlecock Assembler Name Role Phone Nikki Alcantar MD Primary Care Provider [phone] Michelle Norris MD Primary Care Provider Unavail able [facility] Primary Care Provider [facility] Michelle Norris MD Primary Care Provider Unavail able Rosetta Diamond MD Primary Care Provider + Encounter Details Date Type Department Care Team Description 02/13/2016 Hospital Medical Records [address] [place] [id number] Jose Echols MD Social History Tobacco Use [...] on filedocumented in this encounter Care Teams Shuttlecock Assembler Relationship Specialty Start Date End Date Nikki Alcantar MD [address] [place] [address] PCP - General 06/26/05 03/04/17 Michelle Norris MD [address] [place] [id number] PCP - General Internal Medicine 03/05/17 03/16/21 [facility], Pcp [address] [place], [place] [phone] PCP - General Internal Medicine 03/17/21 05/04/21 Michelle Norris MD [address] [place] [phone] PCP - General Internal Medicine 05/05/21 09/13/22 Rosetta Diamond MD [address] [place] [address] [phone] PCP - General Internal Medicine 09/14/22 documented as of this encounter
--- OUTSIDE RECORDS SUMMARY | 2025-10-11 02:15 | XMS_ITS | Encounter Summary ---
Author Organization [facility] Prior to 08/15/2024 Address [address] [place] [address] Care Team Providers Care Communication And Outreach Manager Name Role Phone Nikki Alcantar MD Primary Care Provider [phone] Michelle Norris MD Primary Care Provider Unavail able [facility] Primary Care Provider [facility] Michelle Norris MD Primary Care Provider Unavail able Rosetta Diamond MD Primary Care Provider + Encounter Details Date Type Department Care Team Description 01/21/2009 Hospital Medical Records [address] [place] [id number] Nathaniel Wade MD Social History Tobacco Use [...] filedocumented in this encounter Care Teams Communication And Outreach Manager Relationship Specialty Start Date End Date Nikki Alcantar MD [address] [place] [address] PCP - General 06/26/05 03/04/17 Michelle Norris MD [address] [place] [phone] PCP - General Internal Medicine 03/05/17 03/16/[facility] [address] [place], [place] [phone] PCP - General Internal Medicine 03/17/21 05/04/21 Michelle Norris MD [address] [place] [phone] PCP - General Internal Medicine 05/05/21 09/13/22 Rosetta Diamond MD [address] [place] [address] [phone] PCP - General Internal Medicine 09/14/22 documented as of this encounter
--- OUTSIDE RECORDS SUMMARY | 2025-10-11 02:15 | XMS_ITS | Encounter Summary ---
Author Organization [facility] Prior to 08/15/2024 Address [address] [place] [address] Care Team Providers Care Icu Manager Name Role Phone Nikki Alcantar MD Primary Care Provider [phone] Michelle Norris MD Primary Care Provider Unavail able [facility] Primary Care Provider [facility] Michelle Norris MD Primary Care Provider Unavail able Rosetta Diamond MD Primary Care Provider + Encounter Details Date Type Department Care Team Description 03/13/2016 Hospital Medical Records [address] [place] [id number] Carlos Landrum Social History Tobacco Use Types [...] on filedocumented in this encounter Care Teams Icu Manager Relationship Specialty Start Date End Date Nikki Alcantar MD [address] [place] [phone] PCP - General 06/26/05 03/04/17 Michelle Norris MD [address] [place] [phone] PCP - General Internal Medicine 03/05/17 03/16/21 [facility], Pcp [address] [place] [phone] PCP - General Internal Medicine 03/17/21 05/04/21 Michelle Norris MD [address] [place] [phone] PCP - General Internal Medicine 05/05/21 09/13/22 Rosetta Diamond MD [address] [place] [address] [phone] PCP - General Internal Medicine 09/14/22 documented as of this encounter
--- OUTSIDE RECORDS SUMMARY | 2025-10-11 02:15 | XMS_ITS | Encounter Summary ---
Author Organization [facility] Prior to 08/15/2024 Address [address] [place] [address] Care Team Providers Care Partnership Manager Name Role Phone Nikki Alcantar MD Primary Care Provider [phone] Michelle Norris MD Primary Care Provider Unavail able [facility] Primary Care Provider [facility] Michelle Norirs MD Primary Care Provider Unavail able Rosetta Diamond MD Primary Care Provider + Encounter Details Date Type Department Care Team Description 03/27/2016 Hospital Medical Records [address] [place] [id number] Rod Mccoy MD Social History Tobacco Use [...] on filedocumented in this encounter Care Teams Partnership Manager Relationship Specialty Start Date End Date Nikki Alcantar MD [address] [place] [address] PCP - General 06/26/05 03/04/17 Michelle Norris MD [address] [place] [phone] PCP - General Internal Medicine 03/05/17 03/16/21 [facility], Pcp [address] [place], [place] [phone] PCP - General Internal Medicine 03/17/21 05/04/21 Michelle Norris MD [address] [place] [phone] PCP - General Internal Medicine 05/05/21 09/13/22 Rosetta Diamond MD [address] [place] [address] [phone] PCP - General Internal Medicine 09/14/22 documented as of this encounter
--- OUTSIDE RECORDS SUMMARY | 2025-10-11 02:15 | XMS_ITS | Encounter Summary ---
Author Organization [facility] Prior to 08/15/2024 Address [address] [place] [address] Care Team Providers Care Foil Spinner Name Role Phone Nikki Alcantar MD Primary Care Provider [phone] Michelle Norris MD Primary Care Provider Unavail able [facility] Primary Care Provider [facility] Michelle Norris MD Primary Care Provider Unavail able Rosetta Diamond MD Primary Care Provider + Encounter Details Date Type Department Care Team Description 12/26/2015 Hospital Medical Records [address] [place] [address] Oscar Angelique Social History Tobacco Use Types Packs/Day Years [...] on filedocumented in this encounter Care Teams Foil Spinner Relationship Specialty Start Date End Date Nikki Alcantar MD [address] [place] [address] PCP - General 06/26/05 03/04/17 Michelle Norris MD [address] [place] [address] PCP - General Internal Medicine 03/05/17 03/16/21 [facility], Pcp [address] [place] [address] PCP - General Internal Medicine 03/17/21 05/04/21 Michelle Norris MD [address] [place] [address] PCP - General Internal Medicine 05/05/21 09/13/22 Rosetta Diamond MD [address] [place] [address] PCP - General Internal Medicine 09/14/22 documented as of this encounter
--- OUTSIDE RECORDS SUMMARY | 2025-10-11 02:15 | XMS_ITS | Encounter Summary ---
Author Organization [facility] Prior to 08/15/2024 Address [address] [place] [address] Care Team Providers Care Pocket Operator Name Role Phone Nikki Alcantar MD Primary Care Provider [phone] Michelle Norris MD Primary Care Provider Unavail able [facility] Primary Care Provider [facility] Michelle Norris MD Primary Care Provider Unavail [facility] Rosetta Diamond MD Primary Care Provider + Encounter Details Date Type Department Care Team Description 11/26/2007 Hospital Medical Records [address] [place] [address] Saúl Francisco Social History Tobacco Use Types [...] on filedocumented in this encounter Care Teams Pocket Operator Relationship Specialty Start Date End Date Nikki Alcantar MD [address] [place] [address] PCP - General 06/26/05 03/04/17 Michelle Norris MD [address] [place] [address] PCP - General Internal Medicine 03/05/17 03/16/21 [facility], Pcp [address] [place] [address] PCP - General Internal Medicine 03/17/21 05/04/21 Michelle Norris MD [address] [place] [address] 14685 PCP - General Internal Medicine 05/05/21 09/13/22 Rosetta Diamond MD [address] [place] [address] PCP - General Internal Medicine 09/14/22 documented as of this encounter
--- OUTSIDE RECORDS SUMMARY | 2025-10-11 02:15 | XMS_ITS | Encounter Summary ---
Author Organization [facility] Prior to 08/15/2024 Address [address] [place] [address] Care Team Providers Care Supervisor Plastering Name Role Phone Nikki Alcantar MD Primary Care Provider [phone] Michelle Norris MD Primary Care Provider Unavail able [facility] Primary Care Provider [facility] Michelle Norris MD Primary Care Provider Unavail able Rosetta Diamond MD Primary Care Provider + Encounter Details Date Type Department Care Team Description 04/01/2009 Hospital Medical Records [address] [place] [address] Social History Tobacco Use Types Packs/Day Years [...] filedocumented in this encounter Care Teams Supervisor Plastering Relationship Specialty Start Date End Date Nikki Alcantar MD [address] [place] [address] PCP - General 06/26/05 03/04/17 Michelle Norris MD [address] [place] [address] 79243 PCP - General Internal Medicine 03/05/17 03/16/21 [facility], Pcp [address] [place] [address] 08009 PCP - General Internal Medicine 03/17/21 05/04/21 Michelle Norris MD [address] [place] [address] 6[address] PCP - General Internal Medicine 05/05/21 09/13/22 Rosetta Diamond MD [address] [place] [address] PCP - General Internal Medicine 09/14/22 documented as of this encounter
--- OUTSIDE RECORDS SUMMARY | 2025-10-11 02:15 | XMS_ITS | Encounter Summary ---
Author Organization [facility] Prior to 08/15/2024 Address [address] [place] [address] Care Team Providers Care Internal Audit Consultant Name Role Phone Nikki Alcantar MD Primary Care Provider [phone] Michelle Norris MD Primary Care Provider Unavail able [facility] Primary Care Provider [facility] Michelle Norris MD Primary Care Provider Unavail able Rosetta Diamond MD Primary Care Provider + Encounter Details Date Type Department Care Team Description 12/22/2015 Hospital Medical Records [address] [place] [address] Carlos Landrum Social History Tobacco Use Types [...] on filedocumented in this encounter Care Teams Internal Audit Consultant Relationship Specialty Start Date End Date Nikki Alcantar MD [address] [place] [address] PCP - General 06/26/05 03/04/17 Michelle Norris MD [address] [place] [address] PCP - General Internal Medicine 03/05/17 03/16/21 [facility], Pcp [address] [place] [address] PCP - General Internal Medicine 03/17/21 05/04/21 Michelle Norris MD [address] [place] [address] 62062 PCP - General Internal Medicine 05/05/21 09/13/22 Rosetta Diamond MD [address] [place] [address] PCP - General Internal Medicine 09/14/22 documented as of this encounter
--- OUTSIDE RECORDS SUMMARY | 2025-10-11 02:15 | XMS_ITS | Encounter Summary ---
Author Organization [facility] Prior to 08/15/2024 Address [address] [place] [address] Care Team Providers Care Near Eastern Archaeology Lecturer Name Role Phone Nikki Alcantar MD Primary Care Provider [phone] Michelle Norris MD Primary Care Provider Unavail able [facility] Primary Care Provider [facility] Michelle Norris MD Primary Care Provider Unavail able Rosetta Diamond MD Primary Care Provider + Encounter Details Date Type Department Care Team Description 04/21/2008 Hospital Medical Records [address] [place] [address] Bandar Paul Social History Tobacco Use Types [...] on filedocumented in this encounter Care Teams Near Eastern Archaeology Lecturer Relationship Specialty Start Date End Date Nikki Alcantar MD [address] [place] [address] PCP - General 06/26/05 03/04/17 Michelle Norris MD [address] [place] [address] PCP - General Internal Medicine 03/05/17 03/16/21 [facility], Pcp [address] [place] [address] 43073 PCP - General Internal Medicine 03/17/21 05/04/21 Michelle Norris MD [address] [place] [address] 56951 PCP - General Internal Medicine 05/05/21 09/13/22 Rosetta Diamond MD [address] [place] [address] PCP - General Internal Medicine 09/14/22 documented as of this encounter
--- OUTSIDE RECORDS SUMMARY | 2025-10-11 02:15 | XMS_ITS | Encounter Summary ---
Author Organization [facility] Prior to 08/15/2024 Address [address] [place] [address] Care Team Providers Care Roller Structural Mill Name Role Phone Nikki Alcantar MD Primary Care Provider [phone] Michelle Norris MD Primary Care Provider Unavail able [facility] Primary Care Provider [facility] Michelle Norris MD Primary Care Provider Unavail able Rosetta Diamond MD Primary Care Provider + Encounter Details Date Type Department Care Team Description 11/20/2015 Hospital Medical Records [address] [place] [address] Sourav Lucas Social History Tobacco Use Types [...] on filedocumented in this encounter Care Teams Roller Structural Mill Relationship Specialty Start Date End Date Nikki Alcantar MD [address] [place] [address] 7[address]76 PCP - General 06/26/05 03/04/17 Michelle Norris MD [address] [place] [address] PCP - General Internal Medicine 03/05/17 03/16/21 [facility], Pcp [address] [place] [address] PCP - General Internal Medicine 03/17/21 05/04/21 Michelle Norris MD [address] [place] [address]291 PCP - General Internal Medicine 05/05/21 09/13/22 Rosetta Diamond MD [address] [place] [address] PCP - General Internal Medicine 09/14/22 documented as of this encounter
--- OUTSIDE RECORDS SUMMARY | 2025-10-11 02:16 | XMS_ITS | Encounter Summary ---
Author Organization [facility] Prior to 08/15/2024 Address [address] [place] [address] Care Team Providers Care Energy Efficiency Finance Manager Name Role Phone Nikki Alcantar MD Primary Care Provider [phone] Michelle Norris MD Primary Care Provider Unavail able [facility] Primary Care Provider [facility] Michelle Norris MD Primary Care Provider Unavail able Rosetta Diamond MD Primary Care Provider + Encounter Details Date Type Department Care Team Description 07/16/2014 [facility] Medical Records [address] [place] [address] Social History Tobacco Use Types Packs/Day Years [...] on filedocumented in this encounter Care Teams Energy Efficiency Finance Manager Relationship Specialty Start Date End Date Nikki Alcantar MD [address] [place] [address] PCP - General 06/26/05 03/04/17 Michelle Norris MD [address] [place] [address]607 PCP - General Internal Medicine 03/05/17 03/16/21 [facility], Pcp [address] [place], [place] [phone] PCP - General Internal Medicine 03/17/21 05/04/21 Michelle Norris MD [address] [place] [address]258 PCP - General Internal Medicine 05/05/21 09/13/22 Rosetta Diamond MD [address] [place] [address] PCP - General Internal Medicine 09/14/22 documented as of this encounter
--- OUTSIDE RECORDS SUMMARY | 2025-10-11 02:16 | XMS_ITS | Encounter Summary ---
Author Organization [facility] Prior to 08/15/2024 Address [address] [place] [address] Care Team Providers Care Cataract Lens Generator Name Role Phone Michelle Norris MD Primary Care Provider Unavail able [facility] Primary Care Provider [facility] Michelle Lagos MD Primary Care Provider Unavail able Rosetta Diamond MD Primary Care Provider + Reason for Visit * Reason Onset Date Comments TEST RESULTS 06/12/2019 result notes Encounter Details Date Type Department Care Team Description 06/12/2019 Telephone Adult Medicine [address] [address] Lona Rowell PA-C TEST RESULTS (result notes) [...] on filedocumented in this encounter Care Teams Cataract Lens Generator Relationship Specialty Start Date End Date Michelle Norris MD PCP - General Internal Medicine 03/05/17 03/16/21 [facility], Pcp PCP - General Internal Medicine 03/17/21 05/04/21 Michelle Norris MD PCP - General Internal Medicine 05/05/21 09/13/22 Rosetta Diamond MD [address] [place] [address] PCP - General Internal Medicine 09/14/22 documented as of this encounter
--- OUTSIDE RECORDS SUMMARY | 2025-10-11 02:16 | XMS_ITS | Encounter Summary ---
Author Organization [facility] Prior to 08/15/2024 Address [address] [place] [address] Care Team Providers Care Speech Pathology Supervisor Name Role Phone Michelle Norris MD Primary Care Provider Unavail able [facility] Michelle Lagos MD Primary Care Provider Unavail able Rosetta Diamond MD Primary Care Provider + Encounter Details Date Type Department Care Team Description 03/10/2020 [facility] Medical Records [address] [place] [address] Marlen Grande Social History Tobacco Use Types [...] filedocumented in this encounter Care Teams Speech Pathology Supervisor Relationship Specialty Start Date End Date Michelle Norris MD PCP - General Internal Medicine 03/05/17 03/16/21 [facility]cp PCP - General Internal Medicine 03/17/21 05/04/21 Michelle Norris MD PCP - General Internal Medicine 05/05/21 09/13/22 Rosetta Diamond MD [address] [place] [address] PCP - General Internal Medicine 09/14/22 documented as of this encounter
--- OUTSIDE RECORDS SUMMARY | 2025-10-11 02:16 | XMS_ITS | Encounter Summary ---
Author Organization [facility] Prior to 08/15/2024 Address [address] [place] [address] Care Team Providers Care Talend Developer Name Role Phone Michelle Norris MD Primary Care Provider Unavail able [facility] Michelle Lagos MD Primary Care Provider Unavail able Rosetta Diamond MD Primary Care Provider + Encounter Details Date Type Department Care Team Description 03/06/2019 [facility] Medical Records [address] [place] [address] Marlen Grande Social History Tobacco Use Types [...] on filedocumented in this encounter Care Teams Talend Developer Relationship Specialty Start Date End Date Michelle Norris MD PCP - General Internal Medicine 03/05/17 03/16/21 [facility], Pcp PCP - General Internal Medicine 03/17/21 05/04/21 Michelle Norris MD PCP - General Internal Medicine 05/05/21 09/13/22 Rosetta Diamond MD [address] [place] [address] PCP - General Internal Medicine 09/14/22 documented as of this encounter
--- OUTSIDE RECORDS SUMMARY | 2025-10-11 02:16 | XMS_ITS | Encounter Summary ---
Author Organization [facility] Prior to 08/15/2024 Address [address] [place] [address] Care Team Providers Care Shipping Team Leader Name Role Phone Nikki Alcantar MD Primary Care Provider [phone] Michelle Norris MD Primary Care Provider Unavail able [facility] Primary Care Provider [facility] Michelle Norris MD Primary Care Provider Unavail able Rosetta Diamond MD Primary Care Provider + Encounter Details Date Type Department Care Team Description 06/10/2013 Hospital Medical Records [address] [place] [address] Miles Shah MD Social History Tobacco Use [...] on filedocumented in this encounter Care Teams Shipping Team Leader Relationship Specialty Start Date End Date Nikki Alcantar MD [address] [place] [address] PCP - General 06/26/05 03/04/17 Michelle Norris MD [address] [place] [address]903 PCP - General Internal Medicine 03/05/17 03/16/21 [facility], Pcp [address] [place] [address]42 PCP - General Internal Medicine 03/17/21 05/04/21 Michelle Norris MD [address] [place] [address] 42943 PCP - General Internal Medicine 05/05/21 09/13/22 Rosetta Diamond MD [address] [place] [address] [phone] PCP - General Internal Medicine 09/14/22 documented as of this encounter
--- OUTSIDE RECORDS SUMMARY | 2025-10-11 02:16 | XMS_ITS | Encounter Summary ---
Author Organization [facility] Prior to 08/15/2024 Address [address] [place] [address] Care Team Providers Care Police Sergeant Precinct Name Role Phone Katherine Norris MD Primary Care Provider Unavail able [facility] Primary [facility] Provider [facility] Katherine Lagos MD Primary Care Provider Unavail able Rosetta Diamond MD Primary Care Provider + Reason for Visit * Reason Onset Date Comments Information Needed 03/16/2020 Encounter Details Date Type Department Care Team Description 03/16/2020 Telephone Adult [address] [address] Katherine Norris MD Information Needed Social History [...] 10:37 AM EDT [facility] psychiatrist just a FYI to KATHERINE NORRIS documented in this encounter Plan of Treatment Not on file documented as of this encounter Visit Diagnoses Not on filedocumented in this encounter Care Teams Police Sergeant Precinct Relationship Specialty Start Date End Date Katherine Norris MD PCP - General Internal Medicine 03/05/17 03/16/21 [facility], Pcp PCP - General Internal Medicine 03/17/21 05/04/21 Katherine Norris MD PCP - General Internal Medicine 05/05/21 09/13/22 Rosetta Diamond MD [address] [place] [address] PCP - General Internal Medicine 09/14/22 documented as of this encounter
--- OUTSIDE RECORDS SUMMARY | 2025-10-11 02:16 | XMS_ITS | Encounter Summary ---
Author Organization [facility] Prior to 08/15/2024 Address [address] [place] [address] Care Team Providers Care Education Paraprofessional Name Role Phone Nikki Alcantar MD Primary Care Provider Michelle Norris MD Primary Care Provider Unavail able [facility] Primary Care Provider [facility] Michelle Lagos MD Primary Care Provider Unavail able Rosetta Diamond MD Primary Care Provider + Encounter Details Date Type Department Care Team Description 10/28/2014 Hospital Medical Records [address] [place] [address] Social History Tobacco Use Types Packs/Day Years [...] on filedocumented in this encounter Care Teams Education Paraprofessional Relationship Specialty Start Date End Date Nikki Alcantar MD [address] [place] [address] PCP - General 06/26/05 03/04/17 Michelle Norris MD [address] [place] [address] 14948 PCP - General Internal Medicine 03/05/17 03/16/21 [facility], Pcp [address] [place] [address] 78848 PCP - General Internal Medicine 03/17/21 05/04/21 Michelle Norris MD [address] [place] [address] 39521 PCP - General Internal Medicine 05/05/21 09/13/22 Rosetta Diamond MD [address] [place] [address]20 PCP - General Internal Medicine 09/14/22 documented as of this encounter
--- OUTSIDE RECORDS SUMMARY | 2025-10-11 02:16 | XMS_ITS | Encounter Summary ---
Author Organization [facility] Prior to 08/15/2024 Address [address] [place] [address] Care Team Providers Care Contact Lens Molder Name Role Phone Nikki Alcantar MD Primary Care Provider [phone] Michelle Norris MD Primary Care Provider Unavail able [facility] Primary Care Provider [facility] Michelle Norris MD Primary Care Provider Unavail able Rosetta Diamond MD Primary Care Provider + Encounter Details Date Type Department Care Team Description 08/08/2013 Hospital Medical Records [address] [place] [address] Reena Dominguez Social History Tobacco Use Types [...] filedocumented in this encounter Care Teams Contact Lens Molder Relationship Specialty Start Date End Date Nikki Alcantar MD [address] [place] [address] PCP - General 06/26/05 03/04/17 Michelle Norris MD [address] [place] [address] PCP - General Internal Medicine 03/05/17 03/16/21 [facility], Pcp [address] [place] [address]49 PCP - General Internal Medicine 03/17/21 05/04/21 Michelle Norris MD [address] [place] [address]331 PCP - General Internal Medicine 05/05/21 09/13/22 Rosetta Diamond MD [address] [place] [address] PCP - General Internal Medicine 09/14/22 documented as of this encounter
--- OUTSIDE RECORDS SUMMARY | 2025-10-11 02:16 | XMS_ITS | Encounter Summary ---
Author Organization [facility] Prior to 08/15/2024 Address [address] [place] [address] Care Team Providers Care Professor Of Music Name Role Phone Michelle Norris MD Primary Care Provider Unavail able [facility], Pcp [facility] Michelle Lagos MD Primary Care Provider Unavail able Rosetta Diamond MD Primary Care Provider + Reason for Visit * Reason Onset Date Comments Faxed Order 08/22/2020 Encounter Details Date Type Department Care Team Description 08/22/2020 Telephone Adult [address] [address] Michelle Norris MD Faxed Order Social History [...] TO BE SIGN AND FAX BACK TO [phone]. documented in this encounter Plan of Treatment Not on file documented as of this encounter Visit Diagnoses Not on filedocumented in this encounter Care Teams Professor Of Music Relationship Specialty Start Date End Date Michelle Norris MD PCP - General Internal Medicine 03/05/17 03/16/21 [facility], Pcp PCP - General Internal Medicine 03/17/21 05/04/21 Michelle Norris MD PCP - General Internal Medicine 05/05/21 09/13/22 Rosetta Diamond MD [address] [place] [address] PCP - General Internal Medicine 09/14/22 documented as of this encounter
--- OUTSIDE RECORDS SUMMARY | 2025-10-11 02:16 | XMS_ITS | Encounter Summary ---
Author Organization [facility] Prior to 08/15/2024 Address [address] [place] [address] Care Team Providers Care Student Recruiter Name Role Phone Michelle Norris MD Primary Care Provider Unavail able [facility] Michelle Lagos MD Primary Care Provider Unavail able Rosetta Diamond MD Primary Care Provider + Reason for Visit * Reason Onset Date Comments refill request 06/11/2019 Encounter Details Date Type Department Care Team Description 06/11/2019 Refill Adult Medicine [address] [address] Michelle Norris MD refill request Social History [...] / Plan: [place] / Product Type: MEDICARE [id number] documented in this encounter Plan of Treatment Not on file documented as of this encounter Visit Diagnoses Not on filedocumented in this encounter Care Teams Student Recruiter Relationship Specialty Start Date End Date Michelle Norris MD PCP - General Internal Medicine 03/05/17 03/16/21 [facility] PCP - General Internal Medicine 03/17/21 05/04/21 Michelle Norris MD PCP - General Internal Medicine 05/05/21 09/13/22 Rosetta Diamond MD [address] [place] [address] PCP - General Internal Medicine 09/14/22 documented as of this encounter
--- OUTSIDE RECORDS SUMMARY | 2025-10-11 02:16 | XMS_ITS | Encounter Summary ---
Author Organization [facility] Prior to 08/15/2024 Address [address] [place] [address] Care Team Providers Care Spanisher Name Role Phone Nikki Alcantar MD Primary Care Provider [phone] Michelle Norris MD Primary Care Provider Unavail able [facility] Primary Care Provider [facility] Michelle Norris MD Primary Care Provider Unavail able Rosetta Diamond MD Primary Care Provider + Encounter Details Date Type Department Care Team Description 12/24/2013 Hospital Medical Records [address] [place] [address] Marlen Grande Social History Tobacco Use Types [...] on filedocumented in this encounter Care Teams Spanisher Relationship Specialty Start Date End Date Nikki Alcantar MD [address] [place] [address] PCP - General 06/26/05 03/04/17 Michelle Norrsi MD [address] [place] [address] PCP - General Internal Medicine 03/05/17 03/16/21 [facility], Pcp [address] [place] [address] PCP - General Internal Medicine 03/17/21 05/04/21 Mcihelle Norris MD [address] [place] [address] PCP - General Internal Medicine 05/05/21 09/13/22 Rosetta Diamond MD [address] [place] [address]20 PCP - General Internal Medicine 09/14/22 documented as of this encounter
--- OUTSIDE RECORDS SUMMARY | 2025-10-11 02:16 | XMS_ITS | Encounter Summary ---
Author Organization [facility] Prior to 08/15/2024 Address [address] [place] [address] Care Team Providers Care Cook Candy Name Role Phone Michelle Norris MD Primary Care Provider Unavail able [facility] Primary Care Provider [facility] Michelle Norris MD Primary Care Provider Unavail able Rosetta Diamond MD Primary Care Provider + Reason for Visit * Reason Onset Date Comments Appointment Cancelled 10/30/2019 Encounter Details Date Type Department Care Team Description 10/30/2019 Telephone Adult [address] [address] Michelle Norris MD Appointment Cancelled Social History [...] 10/30/2019 10:29 AM EST FYI-Call received from [facility] to cancel the 10/31 hospital f/u appointment. Patient is currently at [facility], admitted on 10/24/19. documented in this encounter Plan of Treatment Not on file documented as of this encounter Visit Diagnoses Not on filedocumented in this encounter Care Teams Cook Candy Relationship Specialty Start Date End Date Michelle Norris MD PCP - General Internal Medicine 03/05/17 03/16/21 [facility], Pcp PCP - General Internal Medicine 03/17/21 05/04/21 Michelle Norris MD PCP - General Internal Medicine 05/05/21 09/13/22 Rosetta Diamond MD [address] [place] [address] PCP - General Internal Medicine 09/14/22 documented as of this encounter
--- OUTSIDE RECORDS SUMMARY | 2025-10-11 02:16 | XMS_ITS | Encounter Summary ---
Author Organization [facility] Prior to 08/15/2024 Address [address] [place] [address] Care Team Providers Care Flue Cleaner Name Role Phone Nikki Alcantar MD Primary Care Provider [phone] Michelle Norris MD Primary Care Provider Unavail able [facility] Primary Care Provider [facility] Michelle Norris MD Primary Care Provider Unavail able Rosetta Diamond MD Primary Care Provider + Encounter Details Date Type Department Care Team Description 01/22/2013 Night Triage Doc Medical Records [address] [place] [address] Abstract, Provider Social History Tobacco Use Types [...] on filedocumented in this encounter Care Teams Flue Cleaner Relationship Specialty Start Date End Date Nikki Alcantar MD [address] [place] [address] PCP - General 06/26/05 03/04/17 Michelle Norris MD [address] [place] [address] PCP - General Internal Medicine 03/05/17 03/16/21 [facility], Pcp [address] [place] [address] PCP - General Internal Medicine 03/17/21 05/04/21 Michelle Norris MD [address] [place] [address] PCP - General Internal Medicine 05/05/21 09/13/22 Rosetta Diamond MD [address] [place] [address] PCP - General Internal Medicine 09/14/22 documented as of this encounter
--- OUTSIDE RECORDS SUMMARY | 2025-10-11 02:16 | XMS_ITS | Encounter Summary ---
Author Organization [facility] Prior to 08/15/2024 Address [address] [place] [address] Care Team Providers Care Trial Court Justice Name Role Phone Michelle Norris MD Primary Care Provider Unavail able Rosetta Diamond MD Primary Care Provider + Encounter Details Date Type Department Care Team Description 06/15/2022 Business Doc Medical Records [address] [place] [address] Abstract, Provider Social History Tobacco Use Types [...] on filedocumented in this encounter Care Teams Trial Court Justice Relationship Specialty Start Date End Date Michelle Norris MD PCP - General Internal Medicine 05/05/21 09/13/22 Rosetta Diamond MD [address] [place] [address] PCP - General Internal Medicine 09/14/22 documented as of this encounter
--- OUTSIDE RECORDS SUMMARY | 2025-10-11 02:16 | XMS_ITS | Encounter Summary ---
Author Organization [facility] Prior to 08/15/2024 Address [address] [place] [address] Care Team Providers Care Barber Or Beauty Shop Manager Name Role Phone Michelle Norris MD Primary Care Provider Unavail able [facility] Michelle Lagos MD Primary Care Provider Unavail able Rosetta Diamond MD Primary Care Provider + Reason for Visit * Reason Onset Date Comments VNA Call 05/19/2019 Encounter Details Date Type Department Care Team Description 05/19/2019 Telephone Adult Medicine [address] [address] Michelle Norris MD VNA Call Social History [...] Miscellaneous Notes * Telephone Encounter - Armaan MachadoP.N. - 05/19/2019 2:23 PM EDT Spoek with Angle She is from [facility] no a VNA The are an outreach program for this patient the Will send a med list and discharge summary * Telephone Encounter - Deanna Oglesby - 05/19/2019 1:19 PM EDT VNA CALL Which VNA office is calling? [facility] Full name of caller: angle The caller [...] on filedocumented in this encounter Care Teams Barber Or Beauty Shop Manager Relationship Specialty Start Date End Date Michelle Norris MD PCP - General Internal Medicine 03/05/17 03/16/21 [facility] PCP - General Internal Medicine 03/17/21 05/04/21 Michelle Norris MD PCP - General Internal Medicine 05/05/21 09/13/22 Rosetta Diamond MD [address] [place] [address] PCP - General Internal Medicine 09/14/22 documented as of this encounter
--- OUTSIDE RECORDS SUMMARY | 2025-10-11 02:16 | XMS_ITS | Encounter Summary ---
Author Organization [facility] Address [address] [place] [address] Care Team Providers Care Pie Crust Mixer Name Role Phone AlmaMaribel blake Primary Care Provider [phone] Encounter Details Date Type Department Care Team (Late st Contact Info) Description 05/25/2025 Lab Requisition [facility] - Main Lab [address] [facility] [place] [address] Wanda Cleveland NP [address] [place] [address] Other prison (current) drug therapy Social [...] Assessment Author No 11/25/2024 9:44 PM Henrietta De Luna RN * Do you have serious difficulty [...] therapy documented in this encounter Care Teams Pie Crust Mixer Relationship Specialty Start Date End Date Maribel Marquez [address] [place] [address] PCP - General 09/08/24 documented as of this encounter
--- OUTSIDE RECORDS SUMMARY | 2025-10-11 02:16 | XMS_ITS | Encounter Summary ---
Author Organization [facility] Prior to 08/15/2024 Address [address] [place] [address] Care Team Providers Care Interlocker Maintainer Name Role Phone Rosetta Diamond MD Primary Care Provider + Reason for Visit * Reason Onset Date Comments hospital follow up 10/12/2022 Encounter Details Date Type Department Care Team Description 10/12/2022 Telephone Adult Medicine [facility] [address] [place], [place] [phone] Rosetta Diamond MD [address] [place], [place] [phone] hospital follow up Social History Tobacco Use [...] EST Attempted to contact pt, phone line jarrett. * Telephone Encounter - Marie Sonia Braxton - 10/12/2022 11:41 AM EST Hospital [...] on filedocumented in this encounter Care Teams Interlocker Maintainer Relationship Specialty Start Date End Date Rosetta Diamond MD [address] [place] [address] PCP - General Internal Medicine 09/14/22 documented as of this encounter
--- OUTSIDE RECORDS SUMMARY | 2025-10-11 02:16 | XMS_ITS | Encounter Summary ---
Author Organization [facility] Prior to 08/15/2024 Address [address] [place] [address] Care Team Providers Care Business Information Manager Name Role Phone Nikki Alcantar MD Primary Care Provider [phone] Michelle Norris MD Primary Care Provider Unavail able [facility] Michelle Lagos MD Primary Care Provider Unavail able Rosetta Diamond MD Primary Care Provider + Encounter Details Date Type Department Care Team Description 04/02/2014 Hospital Medical Records [address] [place] [address] [phone] Social History Tobacco Use Types Packs/Day Years [...] filedocumented in this encounter Care Teams Business Information Manager Relationship Specialty Start Date End Date Nikki Alcantar MD [address] [place] [address] [phone] PCP - General 06/26/05 03/04/17 Michelle Norris MD [address] [place] [address] PCP - General Internal Medicine 03/05/17 03/16/21 [facility], Pcp [address] [place] [address] PCP - General Internal Medicine 03/17/21 05/04/21 Michelle Norris MD [address] [place] [address] PCP - General Internal Medicine 05/05/21 09/13/22 Rosetta Diamond MD [address] [place] [address] PCP - General Internal Medicine 09/14/22 documented as of this encounter
--- OUTSIDE RECORDS SUMMARY | 2025-10-11 02:16 | XMS_ITS | Encounter Summary ---
Author Organization [facility] Prior to 08/15/2024 Address [address] [place] [address] Care Team Providers Care Occupational Hygienist Name Role Phone Michelle Norris MD Primary Care Provider Unavail able [facility] Pcp [facility] Michelle Lagos MD Primary Care Provider Unavail able Rosetta Diamond MD Primary Care Provider + Encounter Details Date Type Department Care Team Description 04/21/2019 Hospital Medical Records [address] [place] [address] Ron Frausto Social History Tobacco Use Types [...] on filedocumented in this encounter Care Teams Occupational Hygienist Relationship Specialty Start Date End Date Michelle Norris MD PCP - General Internal Medicine 03/05/17 03/16/21 [facility], Pcp PCP - General Internal Medicine 03/17/21 05/04/21 Michelle Norris MD PCP - General Internal Medicine 05/05/21 09/13/22 Rosetta Diamond MD [address] [place] [address] PCP - General Internal Medicine 09/14/22 documented as of this encounter
--- OUTSIDE RECORDS SUMMARY | 2025-10-11 02:16 | XMS_ITS | Encounter Summary ---
Author Organization [facility] Prior to 08/15/2024 Address [address] [place] [address] Care Team Providers Care Converter Supervisor Name Role Phone Michelle Norris MD Primary Care Provider Unavail able [facility], Pcp Primary Care Provider Unavailabl e Michelle Norris MD Primary Care Provider Unavail able Rosetta Diamond MD Primary Care Provider + Encounter Details Date Type Department Care Team Description 08/[facility] [address] [place] [address] Miles Shah MD Social History Tobacco Use [...] on filedocumented in this encounter Care Teams Converter Supervisor Relationship Specialty Start Date End Date Michelle Norris MD PCP - General Internal Medicine 03/05/17 03/16/21 [facility], Pcp PCP - General Internal Medicine 03/17/21 05/04/21 Michelle Norris MD PCP - General Internal Medicine 05/05/21 09/13/22 Rosetta Diamond MD [address] [place] [address] PCP - General Internal Medicine 09/14/22 documented as of this encounter
--- OUTSIDE RECORDS SUMMARY | 2025-10-11 02:16 | XMS_ITS | Encounter Summary ---
Author Organization [facility] Prior to 08/15/2024 Address [address] [place] [address] Care Team Providers Care College Or University Department Head Name Role Phone Nikki Alcantar MD Primary Care Provider [phone] Michelle Norris MD Primary Care Provider Unavail able [facility] Primary Care Provider [facility] Michelle Norris MD Primary Care Provider Unavail able Rosetta Diamond MD Primary Care Provider + Reason for Visit * Reason Onset Date Comments Provider Call Back 11/26/2014 Encounter Details Date Type Department Care Team Description 11/26/2014 Telephone Adult Medicine [address] [phone] Nikki Alcantar MD [address] [place] [address] [phone] Provider Call Back Social History Tobacco Use [...] Patient Was treated by behavioral health at [facility] Yesterday She is doing ok , no call backneeded documented in this encounter Plan of Treatment Not on file documented as of this encounter Visit Diagnoses Not on filedocumented in this encounter Care Teams College Or University Department Head Relationship Specialty Start Date End Date Nikki Alcantar MD [address] [place] [address] PCP - General 06/26/05 03/04/17 Michelle Norris MD [address] [place] [address] PCP - General Internal Medicine 03/05/17 03/16/21 [place] [phone] PCP - General Internal Medicine 03/17/21 05/04/21 Michelle Norris MD [address] [place] [address] PCP - General Internal Medicine 05/05/21 09/13/22 Rosetta Diamond MD [address] [place] [address] PCP - General Internal Medicine 09/14/22 documented as of this encounter
--- OUTSIDE RECORDS SUMMARY | 2025-10-11 02:16 | XMS_ITS | Encounter Summary ---
Author Organization [facility] Prior to 08/15/2024 Address [address] [place] [address] Care Team Providers Care Bilingual Speech Language Pathologist Name Role Phone Nikki Alcantar MD Primary Care Provider [phone] Michelle Norris MD Primary Care Provider Unavail able [facility], [facility] Primary Care Provider [facility] Michelle Norris MD Primary Care Provider Unavail able Rosetta Diamond MD Primary Care Provider + Reason for Visit * Reason Onset Date Comments Follow-up Appt Unavailable 12/08/2013 Encounter Details Date Type Department Care Team Description 12/08/2013 Telephone Adult Medicine [address] [phone] Nikki Alcantar MD [address] [place] [address] [phone] Follow-up Appt Unavailable Social History Tobacco Use [...] FYI the pt is admitted on 12/06/2013 [facility] documented in this encounter Plan of Treatment Not on file documented as of this encounter Visit Diagnoses Not on filedocumented in this encounter Care Teams Bilingual Speech Language Pathologist Relationship Specialty Start Date End Date Nikki Alcantar MD [address] [place] [address] PCP - General 06/26/05 03/04/17 Michelle Norris MD [address] [place], [place] [phone] PCP - General Internal Medicine 03/05/17 03/16/21 [place] [address] PCP - General Internal Medicine 03/17/21 05/04/21 Michelle Norris MD [address] [place] [address] PCP - General Internal Medicine 05/05/21 09/13/22 Rosetta Diamond MD [address] [place], [place] [phone] PCP - General Internal Medicine 09/14/22 documented as of this encounter
--- OUTSIDE RECORDS SUMMARY | 2025-10-11 02:16 | XMS_ITS | Encounter Summary ---
Author Organization [facility] Prior to 08/15/2024 Address [address] [place] [address] Care Team Providers Care Consumer Advocate Name Role Phone Nikki Alcantar MD Primary Care Provider [phone] Michelle Norris MD Primary Care Provider Unavail able [facility] [place] Primary Care Provider [facility] Michelle Norris MD Primary Care Provider Unavail able Rosetta Diamond MD Primary Care Provider + Encounter Details Date Type Department Care Team Description 12/13/2012 Hospital Medical Records [address] [place] [address] Marlen Grande Social History Tobacco Use Types [...] filedocumented in this encounter Care Teams Consumer Advocate Relationship Specialty Start Date End Date Nikki Alcantar MD [address] [place] [address] PCP - General 06/26/05 03/04/17 Michelle Norris MD [address] [place] [address] PCP - General Internal Medicine 03/05/17 03/16/21 [facility], Pcp [address] [place] [address] PCP - General Internal Medicine 03/17/21 05/04/21 Michelle Norris MD [address] [place] [address] PCP - General Internal Medicine 05/05/21 09/13/22 Rosetta Diamond MD [address] [place] [address] PCP - General Internal Medicine 09/14/22 documented as of this encounter
--- OUTSIDE RECORDS SUMMARY | 2025-10-11 02:16 | XMS_ITS | Encounter Summary ---
Author Organization [facility] Prior to 08/15/2024 Address [address] [place] [address] Care Team Providers Care Medicaid Service Coordinator Name Role Phone Nikki Alcantar MD Primary Care Provider [phone] Michelle Norris MD Primary Care Provider Unavail able [facility] Primary Care Provider [facility] Michelle Norris MD Primary Care Provider Unavail able Rosetta Diamond MD Primary Care Provider + Encounter Details Date Type Department Care Team Description 12/21/2012 Hospital Medical Records [address] [place] [address] Surinamese, Kathy, DO Social History Tobacco Use Types [...] on filedocumented in this encounter Care Teams Medicaid Service Coordinator Relationship Specialty Start Date End Date Nikki Alcantar MD [address] [place] [address] PCP - General 06/26/05 03/04/17 Michelle Norris MD [address] [place] [address] PCP - General Internal Medicine 03/05/17 03/16/21 [facility], Pcp [address] [place] [address] PCP - General Internal Medicine 03/17/21 05/04/21 Michelle Norris MD [address] [place] [address] PCP - General Internal Medicine 05/05/21 09/13/22 Rosetta Diamond MD [address] [place] [address] PCP - General Internal Medicine 09/14/22 documented as of this encounter
--- OUTSIDE RECORDS SUMMARY | 2025-10-11 02:16 | XMS_ITS | Encounter Summary ---
Author Organization [facility] Prior to 08/15/2024 Address [address] [place] [address] Care Team Providers Care Assistant General Manager Name Role Phone Nikki Alcantar MD Primary Care Provider [phone] Michelle Norris MD Primary Care Provider Unavail able [facility] Primary Care Provider [facility] Michelle Norris MD Primary Care Provider Unavail able Rosetta Dimaond MD Primary Care Provider + Encounter Details Date Type Department Care Team Description 01/01/2014 [facility] Medical Records [address] [place] [address] Julio Paredes MD Social History Tobacco Use [...] filedocumented in this encounter Care Teams Assistant General Manager Relationship Specialty Start Date End Date Nikki Alcantar MD [address] [place] [address] PCP - General 06/26/05 03/04/17 Michelle Norris MD [address] [place] [address] PCP - General Internal Medicine 03/05/17 03/16/21 [facility], Pcp [address] [place] [address] PCP - General Internal Medicine 03/17/21 05/04/21 Michelle Norris MD [address] [place] [address] PCP - General Internal Medicine 05/05/21 09/13/22 Rosetta Diamond MD [address] [place] [address] PCP - General Internal Medicine 09/14/22 documented as of this encounter
--- OUTSIDE RECORDS SUMMARY | 2025-10-11 02:16 | XMS_ITS | Encounter Summary ---
Author Organization [facility] Prior to 08/15/2024 Address [address] [place] [address] Care Team Providers Care Bisque Placer Name Role Phone Nikki Alcantar MD Primary Care Provider [phone] Michelle Norris MD Primary Care Provider Unavail able [facility], [facility] Primary Care Provider [facility] Michelle Lagos MD Primary Care Provider Unavail able Rosetta Diamond MD Primary Care Provider + Encounter Details Date Type Department Care Team Description 02/11/2015 Hospital Medical Records [address] [place] [address] Social History Tobacco Use Types Packs/Day Years [...] on filedocumented in this encounter Care Teams Bisque Placer Relationship Specialty Start Date End Date Nikki Alcantar MD [address] [place] [address] PCP - General 06/26/05 03/04/17 Michelle Norris MD [address] [place] [address] PCP - General Internal Medicine 03/05/17 03/16/21 [facility], Pcp [address] [place] [address] PCP - General Internal Medicine 03/17/21 05/04/21 Michelle Norris MD [address] [place] [address] PCP - General Internal Medicine 05/05/21 09/13/22 Rosetta Diamond MD [address] [place] [address] PCP - General Internal Medicine 09/14/22 documented as of this encounter
--- OUTSIDE RECORDS SUMMARY | 2025-10-11 02:16 | XMS_ITS | Encounter Summary ---
Author Organization [facility] Prior to 08/15/2024 Address [address] [place] [address] Care Team Providers Care Marriage Therapist Name Role Phone Michelle Norris MD Primary Care Provider Unavail able [facility] Primary [facility] Michelle Lagos MD Primary Care Provider Unavail able Rosetta Diamond MD Primary Care Provider + Reason for Visit * Reason Onset Date Comments Call From Hospital 08/15/2019 Encounter Details Date Type Department Care Team Description 08/15/2019 Telephone Adult [address] [address] Michelle Norris MD Call From Hospital Social [...] AM EDT Information Needed Who is calling: [facility] Information being requested? Calling [...] on filedocumented in this encounter Care Teams Marriage Therapist Relationship Specialty Start Date End Date Michelle Norris MD PCP - General Internal Medicine 03/05/17 03/16/21 [facility] PCP - General Internal Medicine 03/17/21 05/04/21 Michelle Norris MD PCP - General Internal Medicine 05/05/21 09/13/22 Rosetta Diamond MD [address] [place] [address] PCP - General Internal Medicine 09/14/22 documented as of this encounter
--- OUTSIDE RECORDS SUMMARY | 2025-10-11 02:16 | XMS_ITS | Encounter Summary ---
Author Organization [facility] Prior to 08/15/2024 Address [address] [place] [address] Care Team Providers Care Executive Sales Assistant Name Role Phone Michelle Norris MD Primary Care Provider Unavail able Rosetta Diamond MD Primary Care Provider + Encounter Details Date Type Department Care Team Description 05/17/2021 Hospital Medical Records [address] [place] [address] Robby Bazan Social History Tobacco Use Types [...] on filedocumented in this encounter Care Teams Executive Sales Assistant Relationship Specialty Start Date End Date Michelle Norris MD PCP - General Internal Medicine 05/05/21 09/13/22 Rosetta Diamond MD [address] [place] [address] PCP - General Internal Medicine 09/14/22 documented as of this encounter
--- OUTSIDE RECORDS SUMMARY | 2025-10-11 02:16 | XMS_ITS | Encounter Summary ---
Author Organization [facility] Prior to 08/15/2024 Address [address] [place] [address] Care Team Providers Care Hand Baseball Sewer Name Role Phone Michelle Norris MD Primary Care Provider Unavail able [facility], Pcp Primary Care Provider Unavailabl e Michelle Norris MD Primary Care Provider Unavail able Rosetta Diamond MD Primary Care Provider + Encounter Details Date Type Department Care Team Description 02/03/2019 Hospital Medical Records [address] [place] [address] Social History Tobacco Use Types Packs/Day Years [...] filedocumented in this encounter Care Teams Hand Baseball Sewer Relationship Specialty Start Date End Date Michelle Norris MD PCP - General Internal Medicine 03/05/17 03/16/21 [facility], Pcp PCP - General Internal Medicine 03/17/21 05/04/21 Michelle Norris MD PCP - General Internal Medicine 05/05/21 09/13/22 Rosetta Diamond MD [address] [place] [address] PCP - General Internal Medicine 09/14/22 documented as of this encounter
--- OUTSIDE RECORDS SUMMARY | 2025-10-11 02:16 | XMS_ITS | Encounter Summary ---
Author Organization [facility] Prior to 08/15/2024 Address [address] [place] [address] Care Team Providers Care Ground Surveillance Systems Operator Name Role Phone Michelle Norris MD Primary Care Provider Unavail able [facility], Pcp [facility] Michelle Lagos MD Primary Care Provider Unavail able Rosetta Diamond MD Primary Care Provider + Reason for Visit * Reason Onset Date Comments Faxed Order 11/12/2019 Encounter Details Date Type Department Care Team Description 11/12/2019 Telephone Adult [address] [address] Michelle Norris MD Faxed Order Social History [...] 10:37 AM EST Faxed orders received from [facility], please sign and fax back to [phone]. documented in this encounter Plan of Treatment Not on file documented as of this encounter Visit Diagnoses Not on filedocumented in this encounter Care Teams Ground Surveillance Systems Operator Relationship Specialty Start Date End Date Michelle Norris MD PCP - General Internal Medicine 03/05/17 03/16/21 [facility], Pcp PCP - General Internal Medicine 03/17/21 05/04/21 Michelle Norris MD PCP - General Internal Medicine 05/05/21 09/13/22 Rosetta Diamond MD [address] [place] [address] PCP - General Internal Medicine 09/14/22 documented as of this encounter
--- OUTSIDE RECORDS SUMMARY | 2025-10-11 02:16 | XMS_ITS | Encounter Summary ---
Author Organization [facility] Prior to 08/15/2024 Address [address] [place] [address] Care Team Providers Care Patient Financial Services Manager Name Role Phone Nikki Alcantar MD Primary Care Provider [phone] Michelle Norris MD Primary Care Provider Unavail able [facility] Primary Care Provider [facility] Michelle Norris MD Primary Care Provider Unavail able Rosetta Diamond MD Primary Care Provider + Encounter Details Date Type Department Care Team Description 08/28/2013 Regional Clinical Research Associate Report Medical Records [address] [place] [address] Julio Paredes MD Social History Tobacco Use [...] filedocumented in this encounter Care Teams Patient Financial Services Manager Relationship Specialty Start Date End Date Nikki Alcantar MD [address] [place] [address] PCP - General 06/26/05 03/04/17 Michelle Norris MD [address] [place] [address] PCP - General Internal Medicine 03/05/17 03/16/21 [facility], Pcp [address] [place] [address] PCP - General Internal Medicine 03/17/21 05/04/21 Michelle Norris MD [address] [place] [address] PCP - General Internal Medicine 05/05/21 09/13/22 Rosetta Diamond MD [address] [place] [address] PCP - General Internal Medicine 09/14/22 documented as of this encounter
--- OUTSIDE RECORDS SUMMARY | 2025-10-11 02:16 | XMS_ITS | Encounter Summary ---
Author Organization [facility] Prior to 08/15/2024 Address [address] [place] [address] Care Team Providers Care Manager Quality Name Role Phone Nikki Kumar MD Primary Care Provider [phone] Michelle Norris MD Primary Care Provider [facility]avail [facility] Michelle Norris MD Primary Care Provider Unavail able Rosetta Diamond MD Primary Care Provider + Reason for Visit * Reason Onset Date Comments Provider Call Back 11/30/2014 Encounter Details Date Type Department Care Team Description 11/30/2014 Telephone Adult Medicine [address] [phone] Nikki Kumar MD [address] [place] [address] [phone] Provider Call Back Social History Tobacco Use [...] 2 agencies I know of there do [facility] [phone] And [facility] in [place] meds will remain locked and dispensed as [...] / Plan: [place] / Product Type: MEDICARE [id number] documented in this encounter Plan of Treatment Not on file documented as of this encounter Visit Diagnoses Not on filedocumented in this encounter Care Teams Manager Quality Relationship Specialty Start Date End Date Nikki Kumar MD [address] [place] [address] PCP - General 06/26/05 03/04/17 Michelle Norris MD [address] [place] [address] PCP - General Internal Medicine 03/05/17 03/16/21 [place] [address] PCP - General Internal Medicine 03/17/21 05/04/21 Michelle Norris MD [address] [place] [address] PCP - General Internal Medicine 05/05/21 09/13/22 Rosetta Diamond MD [address] [place] [address] PCP - General Internal Medicine 09/14/22 documented as of this encounter
--- OUTSIDE RECORDS SUMMARY | 2025-10-11 02:16 | XMS_ITS | Encounter Summary ---
Author Organization [facility] Prior to 08/15/2024 Address [address] [place] [address] Care Team Providers Care Telecommunications Line Mechanic Name Role Phone Nikki Alcantar MD Primary Care Provider [phone] Michelle Norris MD Primary Care Provider Unavail able [facility], [facility] Primary [facility] Michelle Lagos MD Primary Care Provider Unavail able Rosetta Diamond MD Primary Care Provider + Encounter Details Date Type Department Care Team Description 07/07/2013 Telephone Adult Medicine [address] [phone] Nikki Alcantar MD [address] [place] [address] [phone] Social History Tobacco Use Types Packs/Day Years [...] filedocumented in this encounter Care Teams Telecommunications Line Mechanic Relationship Specialty Start Date End Date Nikki Alcantar MD [address] [place] [address] [phone] PCP - General 06/26/05 03/04/17 Michelle Norris MD [address] [place] [address] PCP - General Internal Medicine 03/05/17 03/16/21 [facility], Pcp [address] [place] [address] PCP - General Internal Medicine 03/17/21 05/04/21 Michelle Norris MD [address] [place] [address] PCP - General Internal Medicine 05/05/21 09/13/22 Rosetta Diamond MD [address] [place] [address] PCP - General Internal Medicine 09/14/22 documented as of this encounter
--- OUTSIDE RECORDS SUMMARY | 2025-10-11 02:16 | XMS_ITS | Encounter Summary ---
Author Organization [facility] Prior to 08/15/2024 Address [address] [place] [address] Care Team Providers Care Peanut Picker Name Role Phone Nikki Alcantar MD Primary Care Provider [phone] Michelle Norris MD Primary Care Provider Unavail able [facility] Primary Care Provider [facility] Michelle Norris MD Primary Care Provider Unavail able Rosetta Diamond MD Primary Care Provider + Encounter Details Date Type Department Care Team Description 12/16/2013 Hospital Medical Records [address] [place] [address] Marlen Grande Social History Tobacco Use Types [...] on filedocumented in this encounter Care Teams Peanut Picker Relationship Specialty Start Date End Date Nikki Alcantar MD [address] [place] [phone] PCP - General 06/26/05 03/04/17 Michelle Norris MD [address] [place] [address] PCP - General Internal Medicine 03/05/17 03/16/21 [facility], Pcp [address] [place] [address] PCP - General Internal Medicine 03/17/21 05/04/21 Michelle Norris MD [address] [place] [address] PCP - General Internal Medicine 05/05/21 09/13/22 Rosetta Diamond MD [address] [place] [address] PCP - General Internal Medicine 09/14/22 documented as of this encounter
--- OUTSIDE RECORDS SUMMARY | 2025-10-11 02:16 | XMS_ITS | Encounter Summary ---
Author Organization [facility] Prior to 08/15/2024 Address [address] [place] [address] Care Team Providers Care Layer Out Name Role Phone Michelle Norris MD Primary Care Provider Unavail able [facility] Care Provider [facility] Michelle Lagos MD Primary Care Provider Unavail able Rosetta Diamond MD Primary Care Provider + Reason for Visit * Reason Onset Date Comments medication problems 10/01/2020 Encounter Details Date Type Department Care Team Description 10/01/2020 Telephone Adult Medicine [address] [address] Michelle Norris MD medication problems Social History [...] EST Who is calling? Didi from [facility] Name of the medication Umeclidinium [place] (INCRUSE ELLIPTA) 62.5 MCG/INH AEROSOL POWDER,BREATH ACTIVATED [...] in this encounter Care Teams Layer Out Relationship Specialty Start Date End Date Michelle Norris MD PCP - General Internal Medicine 03/05/17 03/16/21 [facility]cp PCP - General Internal Medicine 03/17/21 05/04/21 Michelle Norris MD PCP - General Internal Medicine 05/05/21 09/13/22 Rosetta Diamond MD [address] [place] [address] PCP - General Internal Medicine 09/14/22 documented as of this encounter
--- OUTSIDE RECORDS SUMMARY | 2025-10-11 02:16 | XMS_ITS | Encounter Summary ---
Author Organization [facility] Prior to 08/15/2024 Address [address] [place] [address] Care Team Providers Care Wood Chopper Name Role Phone Michelle Norris MD Primary Care Provider Unavail able Rosetta Diamond MD Primary Care Provider + Encounter Details Date Type Department Care Team Description 05/17/2021 Kiln Placer Report Medical Records [address] [place] [address] Robby Bazan Social History Tobacco Use Types [...] filedocumented in this encounter Care Teams Wood Chopper Relationship Specialty Start Date End Date Michelle Norris MD PCP - General Internal Medicine 05/05/21 09/13/22 Rosetta Diamond MD [address] [place] [address] PCP - General Internal Medicine 09/14/22 documented as of this encounter
--- OUTSIDE RECORDS SUMMARY | 2025-10-11 02:16 | XMS_ITS | Encounter Summary ---
Author Organization [facility] Prior to 08/15/2024 Address [address] [place] [address] Care Team Providers Care Electrician Assistant Name Role Phone Nikki Alcantar MD Primary Care Provider [phone] Michelle Norris MD Primary Care Provider Unavail able [facility] Primary Care Provider [facility] Michelle Norris MD Primary Care Provider Unavail able Rosetta Diamond MD Primary Care Provider + Encounter Details Date Type Department Care Team Description 03/04/2013 Night Triage Doc Medical Records [address] [place] [address] Abstract, Provider Social History Tobacco Use Types [...] filedocumented in this encounter Care Teams Electrician Assistant Relationship Specialty Start Date End Date Nikki Alcantar MD [address] [place] [address] PCP - General 06/26/05 03/04/17 Michelle Norris MD [address] [place] [address] PCP - General Internal Medicine 03/05/17 03/16/21 [facility], Pcp [address] [place] [address] PCP - General Internal Medicine 03/17/21 05/04/21 Michelle Norris MD [address] [place] [address] PCP - General Internal Medicine 05/05/21 09/13/22 Rosetta Diamond MD [address] [place] [address] PCP - General Internal Medicine 09/14/22 documented as of this encounter
--- OUTSIDE RECORDS SUMMARY | 2025-10-11 02:16 | XMS_ITS | Encounter Summary ---
Author Organization [facility] Prior to 08/15/2024 Address [address] [place] [address] Care Team Providers Care Fern Cutter Name Role Phone Nikki Alcantar MD Primary Care Provider [phone] Michelle Norris MD Primary Care Provider Unavail able [facility] Primary Care Provider [facility] Michelle Lagos MD Primary Care Provider Unavail able Rosetta Diamond MD Primary Care Provider + Encounter Details Date Type Department Care Team Description 03/16/2015 Hospital Medical Records [address] [place] [address] Social History Tobacco Use Types Packs/Day Years [...] on filedocumented in this encounter Care Teams Fern Cutter Relationship Specialty Start Date End Date Nikki Alcantar MD [address] [place] [address] PCP - General 06/26/05 03/04/17 Michelle Norris MD [address] [place] [address] PCP - General Internal Medicine 03/05/17 03/16/21 [facility], Pcp [address] [place] [address] PCP - General Internal Medicine 03/17/21 05/04/21 Michelle Norris MD [address] [place] [address] PCP - General Internal Medicine 05/05/21 09/13/22 Rosetta Diamond MD [address] [place] [address] PCP - General Internal Medicine 09/14/22 documented as of this encounter
--- OUTSIDE RECORDS SUMMARY | 2025-10-11 02:16 | XMS_ITS | Encounter Summary ---
Author Organization [facility] Prior to 08/15/2024 Address [address] [place] [address] Care Team Providers Care Fisher Eel Spear Name Role Phone Michelle Norris MD Primary Care Provider Unavail able [facility] Primary [facility] Michelle Norris MD Primary Care Provider Unavail able Rosetta Diamond MD Primary Care Provider + Reason for Visit * Reason Onset Date Comments Medication 12/16/2019 Colonoscopy Encounter Details Date Type Department Care Team Description 12/16/2019 Refill [address] [id number] Reese Powers MD Medication (Colonoscopy) Social History [...] on filedocumented in this encounter Care Teams Fisher Eel Spear Relationship Specialty Start Date End Date Michelle Norris MD PCP - General Internal Medicine 03/05/17 03/16/21 [facility] PCP - General Internal Medicine 03/17/21 05/04/21 Michelle Norris MD PCP - General Internal Medicine 05/05/21 09/13/22 Rosetta Diamond MD [address] [place] [address] PCP - General Internal Medicine 09/14/22 documented as of this encounter
--- OUTSIDE RECORDS SUMMARY | 2025-10-11 02:16 | XMS_ITS | Encounter Summary ---
Author Organization [facility] Prior to 08/15/2024 Address [address] [place] [address] Care Team Providers Care Mental Health Director Name Role Phone Michelle Norris MD Primary Care Provider Unavail able [facility]cp Primary [facility] Michelle Lagos MD Primary Care Provider Unavail able Rosetta Diamond MD Primary Care Provider + Encounter Details Date Type Department Care Team Description 05/26/2019 Business Doc Medical Records [address] [place] [address] Abstract, Provider Social History Tobacco Use Types [...] in this encounter Care Teams Mental Health Director Relationship Specialty Start Date End Date Michelle Norris MD PCP - General Internal Medicine 03/05/17 03/16/21 [facility], Pcp PCP - General Internal Medicine 03/17/21 05/04/21 Michelle Norris MD PCP - General Internal Medicine 05/05/21 09/13/22 Rosetta Diamond MD [address] [place] [address] PCP - General Internal Medicine 09/14/22 documented as of this encounter
--- OUTSIDE RECORDS SUMMARY | 2025-10-11 02:16 | XMS_ITS | Encounter Summary ---
Author Organization [facility] Prior to 08/15/2024 Address [address] [place] [address] Care Team Providers Care Applied Marine Physics Professor Name Role Phone Michelle Norris MD Primary Care Provider Unavail able [facility], [facility] Primary Care [facility] Michelle Lagos MD Primary Care Provider Unavail able Rosetta Diamond MD Primary Care Provider + Reason for Visit * Reason Onset Date Comments er follow up 07/24/2019 pt seen at [facility] for SI and depression Encounter Details Date Type Department Care Team Description 07/24/2019 Telephone Adult Medicine [address] [address] Michelle Norris MD er follow up (pt seen at [facility] for SI and depression) Social History [...] 9:40 AM EDT Pt seen [facility] for [facility] and depression. Was cleared by N for discharge. documented in this encounter Plan of Treatment Not on file documented as of this encounter Visit Diagnoses Not on filedocumented in this encounter Care Teams Applied Marine Physics Professor Relationship Specialty Start Date End Date Michelle Norris MD PCP - General Internal Medicine 03/05/17 03/16/21 [facility], Pcp PCP - General Internal Medicine 03/17/21 05/04/21 Michelle Norris MD PCP - General Internal Medicine 05/05/21 09/13/22 Rosetta Diamond MD [address] [place] [address] PCP - General Internal Medicine 09/14/22 documented as of this encounter
--- OUTSIDE RECORDS SUMMARY | 2025-10-11 02:16 | XMS_ITS | Encounter Summary ---
Author Organization [facility] Prior to 08/15/2024 Address [address] [place] [address] Care Team Providers Care Admeasurer Name Role Phone Michelle Norris MD Primary Care Provider Unavail able [facility], [facility]cp Primary Care Provider Unavailabl e Michelle Norris MD Primary Care Provider Unavail able Rosetta Diamond MD Primary Care Provider + Encounter Details Date Type Department Care Team Description 08/28/2019 Old Medical Records Medical Records [address] [place] [phone] Abstract, Provider Social History Tobacco Use Types [...] on filedocumented in this encounter Care Teams Admeasurer Relationship Specialty Start Date End Date Michelle Norris MD PCP - General Internal Medicine 03/05/17 03/16/21 [facility], Pcp PCP - General Internal Medicine 03/17/21 05/04/21 Michelle Norris MD PCP - General Internal Medicine 05/05/21 09/13/22 Rosetta Diamond MD [address] [place] [address] PCP - General Internal Medicine 09/14/22 documented as of this encounter
--- OUTSIDE RECORDS SUMMARY | 2025-10-11 02:16 | XMS_ITS | Encounter Summary ---
Author Organization [facility] Prior to 08/15/2024 Address [address] [place] [address] Care Team Providers Care Shank Archer Name Role Phone Michelle Norris MD Primary Care Provider Unavail able [facility] Michelle Lagos MD Primary Care Provider Unavail able Rosetta Diamond MD Primary Care Provider + Reason for Visit * Reason Onset Date Comments Faxed Order 10/27/2020 Encounter Details Date Type Department Care Team Description 10/27/2020 Telephone Adult Medicine [address] [address] Michelle Norris MD Faxed Order Social History [...] on filedocumented in this encounter Care Teams Shank Archer Relationship Specialty Start Date End Date Michelle Norris MD PCP - General Internal Medicine 03/05/17 03/16/21 [facility], Pcp PCP - General Internal Medicine 03/17/21 05/04/21 Michelle Norris MD PCP - General Internal Medicine 05/05/21 09/13/22 Rosetta Diamond MD [address] [place] [address] PCP - General Internal Medicine 09/14/22 documented as of this encounter
--- OUTSIDE RECORDS SUMMARY | 2025-10-11 02:16 | XMS_ITS | Encounter Summary ---
Author Organization [facility] Prior to 08/15/2024 Address [address] [place] [address] Care Team Providers Care Radiocommunications Technician Name Role Phone Nikki Alcantar MD Primary Care Provider [phone] Michelle Norris MD Primary Care Provider Unavail able [facility] Primary Care Provider [facility] Michelle Norris MD Primary Care Provider Unavail [facility] Rosetta Diamond MD Primary Care Provider + Encounter Details Date Type Department Care Team Description 01/27/2014 Business Doc Medical Records [address] [place] [address] Abstract, Provider Social History Tobacco Use Types [...] on filedocumented in this encounter Care Teams Radiocommunications Technician Relationship Specialty Start Date End Date Nikki Alcantar MD [address] [place] [address] PCP - General 06/26/05 03/04/17 Michelle Norris MD [address] [place] [address] PCP - General Internal Medicine 03/05/17 03/16/21 [facility], Pcp [address] [place] [address] PCP - General Internal Medicine 03/17/21 05/04/21 Michelle Norris MD [address] [place] [address] PCP - General Internal Medicine 05/05/21 09/13/22 Rosetta Diamond MD [address] [place] [address] PCP - General Internal Medicine 09/14/22 documented as of this encounter
--- OUTSIDE RECORDS SUMMARY | 2025-10-11 02:17 | XMS_ITS | Encounter Summary ---
Author Organization [facility] Prior to 08/15/2024 Address [address] [place] [address] Care Team Providers Care Event Promotions Coordinator Name Role Phone Nikki Alcantar MD Primary Care Provider [phone] Michelle Norris MD Primary Care Provider Unavail able [facility] Primary Care Provider [facility] Michelle Lagos MD Primary Care Provider Unavail able Rosetta Diamond MD Primary Care Provider + Encounter Details Date Type Department Care Team Description 07/05/2012 Hospital Medical Records [address] [place] [address] Julio Bright [address] [place] [address] Social History Tobacco Use Types Packs/Day Years [...] on filedocumented in this encounter Care Teams Event Promotions Coordinator Relationship Specialty Start Date End Date Nikki Alcantar MD [address] [place] [address] PCP - General 06/26/05 03/04/17 Michelle Norris MD [address] [place] [address] PCP - General Internal Medicine 03/05/17 03/16/21 [facility], Pcp [address] [place] [address] PCP - General Internal Medicine 03/17/21 05/04/21 Michelle Norris MD [address] [place] [address] PCP - General Internal Medicine 05/05/21 09/13/22 Rosetta Diamond MD [address] [place] [address] [phone] PCP - General Internal Medicine 09/14/22 documented as of this encounter
--- OUTSIDE RECORDS SUMMARY | 2025-10-11 02:17 | XMS_ITS | Encounter Summary ---
Author Organization [facility] Address [address] [place] [address] Care Team Providers Care Professor Of Chemistry Name Role Phone Maribel Marquez Primary Care Provider [phone] Encounter Details Date Type Department Care Team (Late st Contact Info) Description 08/17/2025 Lab Requisition [facility] - Main Lab [address] [facility] [place] [address] Wanda [place] NP [address] [place] [address] Other custodial (current) drug therapy Social History Tobacco Use [...] of Assessment Author No 07/15/2025 2:29 AM [place] RN * Do you have serious difficulty walking or climbing stairs? Answer Date of Assessment Author No 07/15/2025 2:29 AM [place] RN * Do you have serious difficulty dressing or bathing? Answer Date of Assessment Author No 07/15/2025 2:29 AM [place] RN * Because of a physical, mental, or emotional condition, do you have serious difficulty doing errandsalone such as visiting the doctor? Answer Date of Assessment Author No 07/15/2025 2:29 AM [place] RN documented as of this encounter Mental Status * Because of a physical, mental, or emotional condition, do you have serious difficulty concentrating, remembering, or making decisions? (5 years old or older) Answer Entry Date Author No 07/15/2025 2:29 AM [place] RN documented in this encounter Plan of Treatment Not on file documented as of this encounter Procedures Procedure Name Priority Date/Time Associated Diagnosis Comments CBC WITH AUTO DIFFERENTIAL Routine 08/18/2025 6:50 AM EST Other custodial (current) drug therapy CBC AND DIFFERENTIAL Routine 08/18/2025 6:50 AM EST Other custodial (current) drug therapy documented in this encounter Results * (ABNORMAL) CBC auto differential (08/18/2025 6:50 AM EST) WBC 7.6 4.8 - 10.8 K/mcL LAB HEMETOLOGY METHOD 08/18/2025 1:57 PM EST [facility] LAB RBC 4.30 3.80 - 4.80 M/[facility] LAB HEMETOLOGY METHOD 08/18/2025 1:57 PM [facility] LAB Hemoglobin 13.2 11.5 - 16.0 g/dL LAB HEMETOLOGY METHOD 08/18/2025 1:57 PM [facility] LAB Hematocrit 41.0 35.0 - 47.0 % LAB HEMETOLOGY METHOD 08/18/2025 1:57 PM [facility] LAB MCV 94.9 79.0 - 98.0 FL LAB HEMETOLOGY METHOD 08/18/2025 1:57 PM [facility] LAB MCH 30.6 27.0 - 32.0 pcg LAB HEMETOLOGY METHOD 08/18/2025 1:57 PM [facility] LAB MCHC 32.2 32.0 - 37.0 g/dL LAB HEMETOLOGY METHOD 08/18/2025 1:57 PM [facility] LAB RDW 12.2 11.0 - 15.0 % LAB HEMETOLOGY METHOD 08/18/2025 1:57 PM [facility] LAB Platelets 296 130 - 400 K/mcL LAB HEMETOLOGY METHOD 08/18/2025 1:57 PM [facility] LAB MPV 9.9 7.0 - 11.0 FL LAB HEMETOLOGY METHOD 08/18/2025 1:57 PM [facility] LAB NRBC 0.0 <1.0 % LAB HEMETOLOGY METHOD 08/18/2025 1:57 PM [facility] LAB NRBC Absolute 0.00 <0.10 K/mcL LAB HEMETOLOGY METHOD 08/18/2025 1:57 PM [facility] LAB Neutrophils Relative 59.8 % LAB HEMETOLOGY METHOD 08/18/2025 1:57 PM [facility] LAB Lymphocytes Relative 26.1 % LAB HEMETOLOGY METHOD 08/18/2025 1:57 PM [facility] Monocytes Relative 9.2 % LAB HEMETOLOGY METHOD 08/18/2025 1:57 PM [facility] LAB Eosinophils Relative 3.5 % LAB HEMETOLOGY METHOD 08/18/2025 1:57 PM [facility] LAB Basophils Relative 0.7 % LAB HEMETOLOGY METHOD 08/18/2025 1:57 PM EST [facility] LAB Immature Granulocytes Relative 0.7 % LAB HEMETOLOGY METHOD 08/18/2025 1:57 PM [facility] LAB Neutrophils Absolute 4.57 1.50 - 7.00 K/mcL LAB HEMETOLOGY METHOD 08/18/2025 1:57 PM [facility] LAB Lymphocytes Absolute 1.99 1.00 - 5.00 K/mcL LAB HEMETOLOGY METHOD 08/18/2025 1:57 PM [facility] LAB Monocytes Absolute 0.70 0.20 - 1.00 K/mcL LAB HEMETOLOGY METHOD 08/18/2025 1:57 PM [facility] Eosinophils Absolute 0.27 0.00 - 0.50 K/mcL LAB HEMETOLOGY METHOD 08/18/2025 1:57 PM [facility] Basophils Absolute 0.05 0.00 - 0.20 K/mcL LAB HEMETOLOGY METHOD 08/18/2025 1:57 PM [facility] LAB Immature Granulocytes Absolute 0.05(H) 0.00 - 0.03 K/mcL LAB HEMETOLOGY METHOD 08/18/2025 1:57 PM [facility] Blood Venous blood specimen / Unknown Venipuncture / Unknown 08/18/2025 6:50 AM EST 08/18/2025 10:02 AM EST us Wanda [place] [facility]ICAL [facility] LAB BLOOD ORDERABLES Final R esult [facility] [address] [place] [address], documented in this encounter Visit Diagnoses Diagnosis Other custodial (current) drug therapy documented in this encounter Care Teams Professor Of Chemistry Relationship Specialty Start Date End Date Maribel Marquez [address] [place] [id number] PCP - General 09/08/24 documented as of this encounter
--- OUTSIDE RECORDS SUMMARY | 2025-10-11 02:17 | XMS_ITS | Encounter Summary ---
Author Organization [facility] Prior to 08/15/2024 Address [address] [place] [address] Care Team Providers Care Electrodynamicist Name Role Phone Michelle Norris MD Primary Care Provider Unavail able [facility], Pcp Primary [facility] Michelle Lagos MD Primary Care Provider Unavail able Rosetta Diamond MD Primary Care Provider + Reason for Visit * Reason Onset Date Comments hospital follow up 09/05/2017 Encounter Details Date Type Department Care Team Description 09/05/2017 Telephone Adult [address] [address] Michelle Norris MD hospital follow up Social [...] 09/05/2017 10:11 AM EST Patient admitted at [facility] today. documented in this encounter Plan of Treatment Not on file documented as of this encounter Visit Diagnoses Not on filedocumented in this encounter Care Teams Electrodynamicist Relationship Specialty Start Date End Date Michelle Norris MD PCP - General Internal Medicine 03/05/17 03/16/21 [facility], Pcp PCP - General Internal Medicine 03/17/21 05/04/21 Michelle Norris MD PCP - General Internal Medicine 05/05/21 09/13/22 Rosetta Diamond MD [address] [place] [address] PCP - General Internal Medicine 09/14/22 documented as of this encounter
--- OUTSIDE RECORDS SUMMARY | 2025-10-11 02:17 | XMS_ITS | Encounter Summary ---
Author Organization [facility] Prior to 08/15/2024 Address [address] [place] [address] Care Team Providers Care Training Manager Name Role Phone Nikki Alcantar MD Primary Care Provider [phone] Michelle Norris MD Primary Care Provider Unavail able [facility] Primary Care Provider [facility] Michelle Norris MD Primary Care Provider Unavail able Rosetta Diamond MD Primary Care Provider + Encounter Details Date Type Department Care Team Description 10/10/2012 Hospital Medical Records [address] [place] [address] Miles Shah MD Social History Tobacco Use [...] on filedocumented in this encounter Care Teams Training Manager Relationship Specialty Start Date End Date Nikki Alcantar MD [address] [place] [address] PCP - General 06/26/05 03/04/17 Michelle Norris MD [address] [place] [address] PCP - General Internal Medicine 03/05/17 03/16/21 [facility] [address] [place] [address] PCP - General Internal Medicine 03/17/21 05/04/21 Michelle Norris MD [address] [place] [address] PCP - General Internal Medicine 05/05/21 09/13/22 Rosetta Diamond MD [address] [place] [address] [phone] PCP - General Internal Medicine 09/14/22 documented as of this encounter
--- OUTSIDE RECORDS SUMMARY | 2025-10-11 02:17 | XMS_ITS | Encounter Summary ---
Author Organization [facility] Prior to 08/15/2024 Address [address] [place] [address] Care Team Providers Care Public Policy Analyst Name Role Phone Nikki Alcantar MD Primary Care Provider [phone] Michelle Norris MD Primary Care Provider Unavail able [facility] Primary Care Provider [facility] Michelle Norris MD Primary Care Provider Unavail able Rosetta Diamond MD Primary Care Provider + Encounter Details Date Type Department Care Team Description 10/19/2011 Hospital Medical Records [address] [place] [address] Marlen Grande Social History Tobacco Use Types [...] filedocumented in this encounter Care Teams Public Policy Analyst Relationship Specialty Start Date End Date Nikki Alcantar MD [address] [place] [address] PCP - General 06/26/05 03/04/17 Michelle Norris MD [address] [place] [address] PCP - General Internal Medicine 03/05/17 03/16/21 [facility]cp [address] [place] [address] PCP - General Internal Medicine 03/17/21 05/04/21 Michelle Norris MD [address] [place] [address] PCP - General Internal Medicine 05/05/21 09/13/22 Rosetta Diamond MD [address] [place] [address] PCP - General Internal Medicine 09/14/22 documented as of this encounter
--- OUTSIDE RECORDS SUMMARY | 2025-10-11 02:17 | XMS_ITS | Encounter Summary ---
Author Organization [facility] Prior to 08/15/2024 Address [address] [place] [address] Care Team Providers Care Case Advocate Name Role Phone Michelle Norris MD Primary Care Provider Unavail able [facility], Pcp [facility] Michelle Lagos MD Primary Care Provider Unavail able Rosetta Diamond MD Primary Care Provider + Encounter Details Date Type Department Care Team Description 11/18/2017 Hospital Medical Records [address] [place] [phone] Marlen Grande Social History Tobacco Use Types [...] on filedocumented in this encounter Care Teams Case Advocate Relationship Specialty Start Date End Date Michelle Norris MD PCP - General Internal Medicine 03/05/17 03/16/21 [facility], Pcp PCP - General Internal Medicine 03/17/21 05/04/21 Michelle Norris MD PCP - General Internal Medicine 05/05/21 09/13/22 Rosetta Diamond MD [address] [place] [address] PCP - General Internal Medicine 09/14/22 documented as of this encounter
--- OUTSIDE RECORDS SUMMARY | 2025-10-11 02:17 | XMS_ITS | Encounter Summary ---
Author Organization [facility] Prior to 08/15/2024 Address [address] [place] [address] Care Team Providers Care Podiatrist Orthopedic Name Role Phone Michelle Norris MD Primary Care Provider Unavail able [facility], Pcp Primary Care Provider [facility] Michelle Lagos MD Primary Care Provider Unavail able Rosetta Diamond MD Primary Care Provider + Encounter Details Date Type Department Care Team Description 05/08/2018 [facility] Medical Records [address] [place] [address] Abstract, Provider Social History Tobacco Use Types [...] on filedocumented in this encounter Care Teams Podiatrist Orthopedic Relationship Specialty Start Date End Date Michelle Norris MD PCP - General Internal Medicine 03/05/17 03/16/21 [facility], Pcp PCP - General Internal Medicine 03/17/21 05/04/21 Michelle Norris MD PCP - General Internal Medicine 05/05/21 09/13/22 Rosetta Diamond MD [address] [place] [address] PCP - General Internal Medicine 09/14/22 documented as of this encounter
--- OUTSIDE RECORDS SUMMARY | 2025-10-11 02:17 | XMS_ITS | Encounter Summary ---
Author Organization [facility] Prior to 08/15/2024 Address [address] [place] [address] Care Team Providers Care General Agent Name Role Phone Nikki Alcantar MD Primary Care Provider [phone] Michelle Norris MD Primary Care Provider Unavail able [facility] Primary Care Provider [facility] Michelle Norris MD Primary Care Provider Unavail [facility] Rosetta Diamond MD Primary Care Provider + Encounter Details Date Type Department Care Team Description 11/01/2009 Hospital Medical Records [address] [place] [address] John Jett Social History Tobacco Use Types [...] on filedocumented in this encounter Care Teams General Agent Relationship Specialty Start Date End Date Nikki Alcantar MD [address] [place] [address] PCP - General 06/26/05 03/04/17 Michelle Norris MD [address] [place] [address] PCP - General Internal Medicine 03/05/17 03/16/21 [facility], Pcp [address] [place] [address] PCP - General Internal Medicine 03/17/21 05/04/21 Michelle Norris MD [address] [place] [address] PCP - General Internal Medicine 05/05/21 09/13/22 Rosetta Diamond MD [address] [place] [address] PCP - General Internal Medicine 09/14/22 documented as of this encounter
--- OUTSIDE RECORDS SUMMARY | 2025-10-11 02:17 | XMS_ITS | Encounter Summary ---
Author Organization [facility] Prior to 08/15/2024 Address [address] [place] [address] Care Team Providers Care Tar Distributor Operator Name Role Phone Nikki Alcantar MD Primary Care Provider [phone] Michelle Norris MD Primary Care Provider Unavail able [facility] Primary Care Provider [facility] Michelle Norris MD Primary Care Provider Unavail able Rosetta Diamond MD Primary Care Provider + Encounter Details Date Type Department Care Team Description 02/16/2012 Hospital Medical Records [address] [place] [id number] Subhash Mcdaniel Social History Tobacco Use Types [...] on filedocumented in this encounter Care Teams Tar Distributor Operator Relationship Specialty Start Date End Date Nikki Alcantar MD [address] [place] [address] PCP - General 06/26/05 03/04/17 Michelle Norris MD [address] [place] [address] PCP - General Internal Medicine 03/05/17 03/16/21 [facility], Pcp [address] [place] [address] PCP - General Internal Medicine 03/17/21 05/04/21 Michelle Norris MD [address] [place] [address] PCP - General Internal Medicine 05/05/21 09/13/22 Rosetta Diamond MD [address] [place] [address] [phone] PCP - General Internal Medicine 09/14/22 documented as of this encounter
--- OUTSIDE RECORDS SUMMARY | 2025-10-11 02:17 | XMS_ITS | Encounter Summary ---
Author Organization [facility] Prior to 08/15/2024 Address [address] [place] [address] Care Team Providers Care Oceanographer Physical Name Role Phone Nikki Alcantar MD Primary Care Provider Michelle Norris MD Primary Care Provider Unavail able [facility] Primary Care Provider [facility] Michelle Norris MD Primary Care Provider Unavail [facility] Rosetta Diamond MD Primary Care Provider + Encounter Details Date Type Department Care Team Description 08/18/2011 Transfer Records Medical Records [address] [place] [id number] Abstract, Provider Social History Tobacco Use Types [...] on filedocumented in this encounter Care Teams Oceanographer Physical Relationship Specialty Start Date End Date Nikki Alcantar MD [address] [place] [address] PCP - General 06/26/05 03/04/17 Michelle Norris MD [address] [place] [address] PCP - General Internal Medicine 03/05/17 03/16/21 [facility] [address] [place] [address] PCP - General Internal Medicine 03/17/21 05/04/21 Michelle Norris MD [address] [place] [address] PCP - General Internal Medicine 05/05/21 09/13/22 Rosetta Diamond MD [address] [place] [address] PCP - General Internal Medicine 09/14/22 documented as of this encounter
--- OUTSIDE RECORDS SUMMARY | 2025-10-11 02:17 | XMS_ITS | Encounter Summary ---
Author Organization [facility] Prior to 08/15/2024 Address [address] [place] [address] Care Team Providers Care Reclamation Furnace Operator Name Role Phone Michelle Norris MD Primary Care Provider Unavail able [facility]cp [facility] Michelle Lagos MD Primary Care Provider Unavail able Rosetta Diamond MD Primary Care Provider + Encounter Details Date Type Department Care Team Description 10/15/2017 Hospital Medical Records [address] [place] [address] Marlen Grande Social History Tobacco Use Types [...] on filedocumented in this encounter Care Teams Reclamation Furnace Operator Relationship Specialty Start Date End Date Michelle Norris MD PCP - General Internal Medicine 03/05/17 03/16/21 [facility], Pcp PCP - General Internal Medicine 03/17/21 05/04/21 Michelle Norris MD PCP - General Internal Medicine 05/05/21 09/13/22 Rosetta Diamond MD [address] [place] [address] PCP - General Internal Medicine 09/14/22 documented as of this encounter
--- OUTSIDE RECORDS SUMMARY | 2025-10-11 02:17 | XMS_ITS | Encounter Summary ---
Author Organization [facility] Prior to 08/15/2024 Address [address] [place] [address] Care Team Providers Care Pipelines Laborer Name Role Phone Nikki Alcantar MD Primary Care Provider [phone] Michelle Norris MD Primary Care Provider Unavail able [facility] Primary Care Provider [facility] Michelle Norris MD Primary Care Provider Unavail able Rosetta Diamond MD Primary Care Provider + Encounter Details Date Type Department Care Team Description 09/27/2012 Machinist Helper Marine Report Medical Records [address] [place] [address] Julio Paredes MD Social History Tobacco Use [...] on filedocumented in this encounter Care Teams Pipelines Laborer Relationship Specialty Start Date End Date Nikki Alcantar MD [address] [place] [address] PCP - General 06/26/05 03/04/17 Michelle Norris MD [address] [place] [address] PCP - General Internal Medicine 03/05/17 03/16/21 [facility] [address] [place] [address] PCP - General Internal Medicine 03/17/21 05/04/21 Michelle Norris MD [address] [place] [address] PCP - General Internal Medicine 05/05/21 09/13/22 Rosetta Diamond MD [address] [place] [address] PCP - General Internal Medicine 09/14/22 documented as of this encounter
--- OUTSIDE RECORDS SUMMARY | 2025-10-11 02:17 | XMS_ITS | Encounter Summary ---
Author Organization [facility] Prior to 08/15/2024 Address [address] [place] [address] Care Team Providers Care Breaker Engineer Name Role Phone Nikki Alcantar MD Primary Care Provider [phone] Michelle Norris MD Primary Care Provider Unavail able [facility] Primary Care Provider [facility] Michelle Norris MD Primary Care Provider Unavail [facility] Rosetta Diamond MD Primary Care Provider + Encounter Details Date Type Department Care Team Description 02/01/2012 Business Doc Medical Records [address] [place] [address] Abstract, Provider Social History Tobacco Use Types [...] on filedocumented in this encounter Care Teams Breaker Engineer Relationship Specialty Start Date End Date Nikki Alcantar MD [address] [place] [address] PCP - General 06/26/05 03/04/17 Michelle Norris MD [address] [place] [address] PCP - General Internal Medicine 03/05/17 03/16/21 [facility], Pcp [address] [place] [address] PCP - General Internal Medicine 03/17/21 05/04/21 Michelle Norris MD [address] [place] [phone] PCP - General Internal Medicine 05/05/21 09/13/22 Rosetta Diamond MD [address] [place] [phone] PCP - General Internal Medicine 09/14/22 documented as of this encounter
--- OUTSIDE RECORDS SUMMARY | 2025-10-11 02:17 | XMS_ITS | Encounter Summary ---
Author Organization [facility] Prior to 08/15/2024 Address [address] [place] [address] Care Team Providers Care Tableman Name Role Phone Michelle Norris MD Primary Care Provider Unavail able [facility], Pcp Primary Care Provider Unavailabl e Michelle Norris MD Primary Care Provider Unavail able Rosetta Diamond MD Primary Care Provider + Encounter Details Date Type Department Care Team Description 01/10/2018 Mass Communications Professor Report Medical Records [address] [place] [address] Salma Mahmood FNP Social History Tobacco Use [...] on filedocumented in this encounter Care Teams Tableman Relationship Specialty Start Date End Date Michelle Norris MD PCP - General Internal Medicine 03/05/17 03/16/21 [facility], Pcp PCP - General Internal Medicine 03/17/21 05/04/21 Michelle Norris MD PCP - General Internal Medicine 05/05/21 09/13/22 Rosetta Diamond MD [address] [place] [address] PCP - General Internal Medicine 09/14/22 documented as of this encounter
--- OUTSIDE RECORDS SUMMARY | 2025-10-11 02:17 | XMS_ITS | Encounter Summary ---
Author Organization [facility] Prior to 08/15/2024 Address [address] [place] [address] Care Team Providers Care Book Coverer Name Role Phone Michelle Norris MD Primary Care Provider Unavail able [facility], Pcp [facility] Michelle Lagos MD Primary Care Provider Unavail able Rosetta Diamond MD Primary Care Provider + Reason for Visit * Reason Onset Date Comments Faxed Order 11/05/2017 Encounter Details Date Type Department Care Team Description 11/05/2017 Telephone Adult [address] [address] Michelle Norris MD Faxed Order Social History [...] on filedocumented in this encounter Care Teams Book Coverer Relationship Specialty Start Date End Date Michelle Norris MD PCP - General Internal Medicine 03/05/17 03/16/21 [facility], Pcp PCP - General Internal Medicine 03/17/21 05/04/21 Michelle Norris MD PCP - General Internal Medicine 05/05/21 09/13/22 Rosetta Diamond MD [address] [place] [address] PCP - General Internal Medicine 09/14/22 documented as of this encounter
--- OUTSIDE RECORDS SUMMARY | 2025-10-11 02:17 | XMS_ITS | Clinical Summary ---
Author Organization [facility] Address [address] [address] Phone Care Team Providers Care Tie Tape Machine Operator Name Role Phone Maribel Marquez NP Primary Care Provider + Allergies Active Allergy Reactions Criticality Noted Date Comments Azithromycin 05/18/2023 Codeine 04/21/2009 Unknown reaction [place] Other (See Comments) 02/27/2013 pt reports 01/17/13 [...] Health Maintenance Due Date Last Done Comments LIPID PANEL 1977 DEPRESSION SCREENING 1989 SMOKING Hx and SMOKELESS TOBACCO SCREENING 1990 HEPATITIS C SCREENING 1995 HIV ONE-TIME SCREENING (18-65 YEARS) 1995 PAP SMEAR 1998 MAMMOGRAM 2017 COLOGUARD [...] Date/Time Associated Diagnosis Comments BASIC METABOLIC PANEL (BMP) STAT 08/24/2024 3:05 AM EST from Last 3 Months or Most Recently Relevant to Health Maintenance Results * (ABNORMAL) Basic metabolic panel (08/24/2024 3:05 AM EST) SODIUM 140 136 - 145 mmol/L [facility] POTASSIUM 3.7 3.4 - 5.1 mmol/L [facility] CHLORIDE 102 98 - 107 mmol/L [facility] CO2 23 22 - 31 mmol/L [facility] BUN 12 6 - 23 mg/dL [facility] CREATININE 0.63 0.50 - 1.20 mg/dL [facility] GLUCOSE 160(H) 70 - 100 mg/dL [facility] CALCIUM 9.2 8.8 - 10.7 mg/dL [facility] EGFR 111 >59 mL/min/1.7 3m2 [facility] Comment:Estimated glomerular filtration rate calculated using the CKD-EPI refit equation. ANION GAP 15 7 - 17 mmol/L [facility] Blood 08/24/2024 3:05 AM EST 08/24/2024 3:15 AM EST us Parvez Duenas MD, MPH LAB BLOOD BKR ORDERABL ES Final Result [facility] [address] [place] [phone] from Last 3 Months or Most Recently Relevant to Health Maintenance Insurance [facility] MEDICARE PART A & B [facility] MED[facility] PART A & [facility] PART A & B [place] PART [place] B [facility] MEDICARE PART A & B Care Teams Tie Tape Machine Operator Relationship Specialty Start Date End Date Maribel Marquez NP [address] [place] [address] PCP - General Nurse Practitioner 04/02/24 Additional Source Comments The information contained in this document represents components of the legal health record. It is not the complete legal health record.[facility]
--- OUTSIDE RECORDS SUMMARY | 2025-10-11 02:17 | XMS_ITS | Encounter Summary ---
Author Organization [facility] Prior to 08/15/2024 Address [address] [place] [address] Care Team Providers Care Architectural Draftsperson Name Role Phone Nikki Alcantar MD Primary Care Provider [phone] Michelle Norris MD Primary Care Provider Unavail able [facility] Primary Care Provider [facility] Michelle Lagos MD Primary Care Provider Unavail able Rosetta Diamond MD Primary Care Provider + Encounter Details Date Type Department Care Team Description 09/15/2011 Hospital Medical Records [address] [place] [address] [address]en Jones [address] [place] [id number] Social History Tobacco Use Types Packs/Day Years [...] on filedocumented in this encounter Care Teams Architectural Draftsperson Relationship Specialty Start Date End Date Nikki Alcantar MD [address] [place] [address] PCP - General 06/26/05 03/04/17 Michelle Norris MD [address] [place] [address] PCP - General Internal Medicine 03/05/17 03/16/21 [facility] Pcp [address] [place] [address] PCP - General Internal Medicine 03/17/21 05/04/21 Michelle Norris MD [address] [place] [address] PCP - General Internal Medicine 05/05/21 09/13/22 Rosetta Diamond MD [address] [place] [address] PCP - General Internal Medicine 09/14/22 documented as of this encounter
--- OUTSIDE RECORDS SUMMARY | 2025-10-11 02:17 | XMS_ITS | Encounter Summary ---
Author Organization [facility] Prior to 08/15/2024 Address [address] [place] [address] Care Team Providers Care Back Closer Name Role Phone Nikki Alcantar MD Primary Care Provider [phone] Michelle Norris MD Primary Care Provider Unavail able [facility] Primary Care Provider [facility] Michelle Norris MD Primary Care Provider Unavail able Rosetta Diamond MD Primary Care Provider + Encounter Details Date Type Department Care Team Description 2009 Hospital Medical Records [address] [place] [phone] Jose G Santos MD Social History Tobacco [...] filedocumented in this encounter Care Teams Back Closer Relationship Specialty Start Date End Date Nikki Alcantar MD [address] [place] [address] PCP - General 06/26/05 03/04/17 Michelle Norris MD [address] [place] [address] PCP - General Internal Medicine 03/05/17 03/16/21 [facility], Pcp [address] [place], [place] [phone] PCP - General Internal Medicine 03/17/21 05/04/21 Michelle Norris MD [address] [place] [address] PCP - General Internal Medicine 05/05/21 09/13/22 Rosetta Diamond MD [address] [place] [address] [phone] PCP - General Internal Medicine 09/14/22 documented as of this encounter
--- OUTSIDE RECORDS SUMMARY | 2025-10-11 02:17 | XMS_ITS | Encounter Summary ---
Author Organization [facility] Prior to 08/15/2024 Address [address] [place] [address] Care Team Providers Care Fryer Line Helper Name Role Phone Nikki Alcantar MD Primary Care Provider [phone] Michelle Norris MD Primary Care Provider Unavail able [facility] Primary Care Provider [facility] Michelle Norris MD Primary Care Provider Unavail able Rosetta Dimaond MD Primary Care Provider + Encounter Details Date Type Department Care Team Description 02/22/2012 Hospital Medical Records [address] [place] [address] Marlen Grande Social History Tobacco Use Types [...] on filedocumented in this encounter Care Teams Fryer Line Helper Relationship Specialty Start Date End Date Nikki Alcantar MD [address] [place] [address] PCP - General 06/26/05 03/04/17 Michelle Norris MD [address] [place] [address] PCP - General Internal Medicine 03/05/17 03/16/21 [facility], Pcp [address] [place] [address] PCP - General Internal Medicine 03/17/21 05/04/21 Michelle Norris MD [address] [place] [address] PCP - General Internal Medicine 05/05/21 09/13/22 Rosetta Diamond MD [address] [place] [address] PCP - General Internal Medicine 09/14/22 documented as of this encounter
--- OUTSIDE RECORDS SUMMARY | 2025-10-11 02:17 | XMS_ITS | Encounter Summary ---
Author Organization [facility] Prior to 08/15/2024 Address [address] [place] [address] Care Team Providers Care Tire Recapping Machine Operator Name Role Phone Nikki Alcantar MD Primary Care Provider [phone] Michelle Norris MD Primary Care Provider Unavail able [facility], Pcp Primary Care Provider UnavailMichelle Colvin MD Primary Care Provider Unavail able Rosetta Diamond MD Primary Care Provider + Encounter Details Date Type Department Care Team Description 10/04/2009 Hospital Medical Records [address] [place] [address] [facility] [place] [address] Social History Tobacco Use Types Packs/Day Years [...] on filedocumented in this encounter Care Teams Tire Recapping Machine Operator Relationship Specialty Start Date End Date Nikki Alcantar MD [address] [place] [phone] PCP - General 06/26/05 03/04/17 Michelle Norris MD [address] [place] [address] PCP - General Internal Medicine 03/05/17 03/16/21 [facility], Pcp [address] [place] [address] PCP - General Internal Medicine 03/17/21 05/04/21 Michelle Norris MD [address] [place] [address] PCP - General Internal Medicine 05/05/21 09/13/22 Rosetta Diamond MD [address] [place] [address] PCP - General Internal Medicine 09/14/22 documented as of this encounter
--- OUTSIDE RECORDS SUMMARY | 2025-10-11 02:17 | XMS_ITS | Encounter Summary ---
Author Organization [facility] Prior to 08/15/2024 Address [address] [place] [address] Care Team Providers Care Biomechanical Engineer Name Role Phone Michelle Norris MD Primary Care Provider Unavail able [facility] Primary Care [facility] Michelle Lagos MD Primary Care Provider Unavail able Rosetta Diamond MD Primary Care Provider + Reason for Visit * Reason Onset Date Comments Medication 10/11/2017 Encounter Details Date Type Department Care Team Description 10/11/2017 Telephone Adult Medicine [address] [address] Michelle Norris MD Medication Social History Tobacco [...] PM EST Medications will be addressed on hopital follow up visit * Telephone Encounter - Lucita Hill M.A. - 10/17/2017 11:31 AM EST Spoke with Karishma at [facility] and let them know that these medications [...] EST LM for Adina or Karishma at [facility] to let them know that we will discuss medications at upcoming hospitalfollow up as you had suggested but they have not returned my calls and are continuing to make requests for these medications. Lucita Hill CMA [phone] * Telephone Encounter - Megan Newton - 10/17/2017 8:54 AM EST Karishma calling for refill of the fenofibrate 145 mg once daily [phone] * Telephone Encounter - Lucita Hill M.A. - 10/16/2017 11:07 AM EST LM for Adina from [facility] to return my call Lucita Hill CMA [phone] * Telephone Encounter - Lucita Hill M.A. - 10/11/2017 4:42 PM EST Please let me know! * Telephone Encounter - Deanna Oglesby - 10/11/2017 4:32 PM EST Adina Virgen from [facility], - Pt was given Fioricet and Fenofibrate at a hospital stay, can these prescriptions be prescribed documented in this encounter Plan of Treatment Not on file documented as of this encounter Visit Diagnoses Not on filedocumented in this encounter Care Teams Biomechanical Engineer Relationship Specialty Start Date End Date Michelle Norris MD PCP - General Internal Medicine 03/05/17 03/16/21 [facility], Pcp PCP - General Internal Medicine 03/17/21 05/04/21 Michelle Norris MD PCP - General Internal Medicine 05/05/21 09/13/22 Rosetta Diamond MD [address] [place] [address] PCP - General Internal Medicine 09/14/22 documented as of this encounter
--- OUTSIDE RECORDS SUMMARY | 2025-10-11 02:17 | XMS_ITS | Encounter Summary ---
Author Organization [facility] Prior to 08/15/2024 Address [address] [place] [address] Care Team Providers Care Minister Name Role Phone Nikki Alcantar MD Primary Care Provider [phone] Michelle Norris MD Primary Care Provider Unavail able [facility] Primary Care Provider [facility] Michelle Norris MD Primary Care Provider Unavail able Rosetta Diamond MD Primary Care Provider + Encounter Details Date Type Department Care Team Description 05/17/2012 Hospital Medical Records [address] [place] [address] Miles Shah MD Social History Tobacco Use [...] on filedocumented in this encounter Care Teams Minister Relationship Specialty Start Date End Date Nikki Alcantar MD [address] [place] [address] PCP - General 06/26/05 03/04/17 Michelle Norris MD [address] [place] [address] PCP - General Internal Medicine 03/05/17 03/16/21 [facility], Pcp [address] [place] [address] PCP - General Internal Medicine 03/17/21 05/04/21 Michelle Norris MD [address] [place] [address] PCP - General Internal Medicine 05/05/21 09/13/22 Rosetta Diamond MD [address] [place] [phone] PCP - General Internal Medicine 09/14/22 documented as of this encounter
--- OUTSIDE RECORDS SUMMARY | 2025-10-11 02:17 | XMS_ITS | Encounter Summary ---
Author Organization [facility] Prior to 08/15/2024 Address [address] [place] [address] Care Team Providers Care Underground Production Foreperson Name Role Phone Michelle Norris MD Primary Care Provider Unavail able [facility] Primary [facility] Michelle Lagos MD Primary Care Provider Unavail able Rosetta Diamond MD Primary Care Provider + Reason for Visit * Reason Comments E-prescribe Rx Request Encounter Details Date Type Department Care Team Description 08/11/2018 Refill OBGYN - [facility] [address] [place] [address] Chel Stapleton CNM [address] [place], [place] [phone] E-prescribe Rx Request Social History Tobacco Use [...] EDT WHEN WAS THE PATIENTS LAST ANNUAL REMOTE CONTROL MIRROR INSTALLER EXAM? 07/19/17 Does patient have an upcoming [...] / Plan: [place] / Product Type: MEDICARE [id number] documented in this encounter Plan of Treatment Not on file documented as of this encounter Visit Diagnoses Diagnosis Encounter for initial prescription of contraceptive pills General counseling for prescription of oral contraceptives documented in this encounter Care Teams Underground Production Foreperson Relationship Specialty Start Date End Date Michelle Norris MD PCP - General Internal Medicine 03/05/17 03/16/21 [facility] Pcp PCP - General Internal Medicine 03/17/21 05/04/21 Michelle Norris MD PCP - General Internal Medicine 05/05/21 09/13/22 Rosetta Diamond MD [address] [place] [address] PCP - General Internal Medicine 09/14/22 documented as of this encounter
--- OUTSIDE RECORDS SUMMARY | 2025-10-11 02:17 | XMS_ITS | Encounter Summary ---
Author Organization [facility] Prior to 08/15/2024 Address [address] [place] [address] Care Team Providers Care Chain Carrier Name Role Phone Michelle Norris MD Primary Care Provider Unavail able [facility], Pcp Primary Care Provider [facility] Michelle Lagos MD Primary Care Provider Unavail able Rosetta Diamond MD Primary Care Provider + Reason for Visit * Reason Onset Date Comments Faxed Order 01/25/2018 Encounter Details Date Type Department Care Team Description 01/25/2018 Telephone Adult [address] [address] Michelle Norris MD Faxed Order Social History [...] 01/25/2018 11:18 AM EDT Faxed orders from ([facility]). documented in this encounter Plan of Treatment Not on file documented as of this encounter Visit Diagnoses Not on filedocumented in this encounter Care Teams Chain Carrier Relationship Specialty Start Date End Date Michelle Norris MD PCP - General Internal Medicine 03/05/17 03/16/21 [facility], Pcp PCP - General Internal Medicine 03/17/21 05/04/21 Michelle Norris MD PCP - General Internal Medicine 05/05/21 09/13/22 Rosetta Diamond MD [address] [place] [address] PCP - General Internal Medicine 09/14/22 documented as of this encounter
--- OUTSIDE RECORDS SUMMARY | 2025-10-11 02:17 | XMS_ITS | Encounter Summary ---
Author Organization [facility] Address [address] [place] [address] Care Team Providers Care Physical Science Aide Name Role Phone Maribel Marquez Primary Care Provider [phone] Encounter Details Date Type Department Care Team (Late st Contact Info) Description 07/21/2025 Lab Requisition [facility] - Main Lab [address] [facility] [place] [address] Wanda Cleveland NP [address] [place] [address] Other detention (current) drug therapy Social [...] Chino Haro RN documented in this encounter Plan of Treatment Not on file documented as of this encounter Procedures Procedure Name Priority Date/Time Associated Diagnosis Comments CBC WITH AUTO DIFFERENTIAL Routine 07/21/2025 6:08 AM EDT Other detention (current) drug therapy CBC AND DIFFERENTIAL Routine 07/21/2025 6:08 AM EDT Other detention (current) drug therapy documented in this encounter Results * (ABNORMAL) CBC auto differential (07/21/2025 6:08 AM EDT) [facility] WBC 7.4 4.8 - 10.8 K/mcL LAB HEMETOLOGY METHOD 07/21/2025 8:07 AM EDT [facility] RBC 4.20 3.80 - 4.80 M/mcL LAB HEMETOLOGY METHOD 07/21/2025 8:07 AM [facility] Hemoglobin 13.1 11.5 - 16.0 g/dL LAB HEMETOLOGY METHOD 07/21/2025 8:07 AM T [facility] Hematocrit 38.6 35.0 - 47.0 % LAB HEMETOLOGY METHOD 07/21/2025 8:07 AM [facility] MCV 91.5 79.0 - 98.0 FL LAB HEMETOLOGY METHOD 07/21/2025 8:07 AM [facility] MCH 31.0 27.0 - 32.0 pcg LAB HEMETOLOGY METHOD 07/21/2025 8:07 AM [facility] MCHC 33.9 32.0 - 37.0 g/dL LAB HEMETOLOGY METHOD 07/21/2025 8:07 AM [facility] RDW 12.3 11.0 - 15.0 % LAB HEMETOLOGY METHOD 07/21/2025 8:07 AM [facility] Platelets 300 130 - 400 K/mcL LAB HEMETOLOGY METHOD 07/21/2025 8:07 AM [facility] MPV 9.5 7.0 - 11.0 FL LAB HEMETOLOGY METHOD 07/21/2025 8:07 AM [facility] NRBC 0.0 <1.0 % LAB HEMETOLOGY METHOD 07/21/2025 8:07 AM [facility] NRBC Absolute 0.00 <0.10 K/mcL LAB HEMETOLOGY METHOD 07/21/2025 8:07 AM [facility] Neutrophils Relative 61.2 % LAB HEMETOLOGY METHOD 07/21/2025 8:07 AM [facility] Lymphocytes Relative 25.9 % LAB HEMETOLOGY METHOD 07/21/2025 8:07 AM [facility] Monocytes Relative 7.8 % LAB HEMETOLOGY METHOD 07/21/2025 8:07 AM [facility] Eosinophils Relative 3.9 % LAB HEMETOLOGY METHOD 07/21/2025 8:07 AM EDT [facility] Basophils Relative 0.5 % LAB HEMETOLOGY METHOD 07/21/2025 8:07 AM EDT [facility] Immature Granulocytes Relative 0.7 % LAB HEMETOLOGY METHOD 07/21/2025 8:07 AM EDT [facility] Neutrophils Absolute 4.53 1.50 - 7.00 K/mcL LAB HEMETOLOGY METHOD 07/21/2025 8:07 AM EDT [facility] Lymphocytes Absolute 1.92 1.00 - 5.00 K/mcL LAB HEMETOLOGY METHOD 07/21/2025 8:07 AM EDT [facility] Monocytes Absolute 0.58 0.20 - 1.00 K/mcL LAB HEMETOLOGY METHOD 07/21/2025 8:07 AM EDT [facility] Eosinophils Absolute 0.29 0.00 - 0.50 K/mcL LAB HEMETOLOGY METHOD 07/21/2025 8:07 AM EDT [facility] Basophils Absolute 0.04 0.00 - 0.20 K/mcL LAB HEMETOLOGY METHOD 07/21/2025 8:07 AM EDT [facility] Immature Granulocytes Absolute 0.05(H) 0.00 - 0.03 K/mcL LAB HEMETOLOGY METHOD 07/21/2025 8:07 AM EDT [facility] Blood Venous blood specimen / Unknown Venipuncture / Unknown 07/21/2025 6:08 AM EDT 07/21/2025 7:25 AM EDT us Wanda Cleveland NP LAB BLOOD ORDERABLES Final R esult [facility] [address] [place] [address], documented in this encounter Visit Diagnoses Diagnosis 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
--- OUTSIDE RECORDS SUMMARY | 2025-10-11 02:17 | XMS_ITS | Encounter Summary ---
Author Organization [facility] Prior to 08/15/2024 Address [address] [place] [address] Care Team Providers Care Truck Spotter Name Role Phone Nikki Alcantar MD Primary Care Provider [phone] Michelle Norris MD Primary Care Provider Unavail able [facility] Primary Care Provider [facility] Michelle Norris MD Primary Care Provider Unavail able Rosetta Diamond MD Primary Care Provider + Encounter Details Date Type Department Care Team Description 10/07/2010 Hospital Medical Records [address] [place] [address] Ayan Kuldeep Social History Tobacco Use Types Packs/Day Years [...] on filedocumented in this encounter Care Teams Truck Spotter Relationship Specialty Start Date End Date Nikki Alcantar MD [address] [place] [address] PCP - General 06/26/05 03/04/17 Michelle Norris MD [address] [place] [address] PCP - General Internal Medicine 03/05/17 03/16/21 [facility], Pcp [address] [place] [address] PCP - General Internal Medicine 03/17/21 05/04/21 Michelle Norris MD [address] [place] [address] PCP - General Internal Medicine 05/05/21 09/13/22 Rosetta Diamond MD [address] [place] [address] PCP - General Internal Medicine 09/14/22 documented as of this encounter
--- OUTSIDE RECORDS SUMMARY | 2025-10-11 02:17 | XMS_ITS | Encounter Summary ---
Author Organization [facility] Prior to 08/15/2024 Address [address] [place] [address] Care Team Providers Care Media Marketing Coordinator Name Role Phone Michelle Norris MD Primary Care Provider Unavail able [facility], Pcp Primary Care Provider [facility] Michelle Lagos MD Primary Care Provider Unavail able Rosetta Diamond MD Primary Care Provider + Encounter Details Date Type Department Care Team Description 03/25/2018 Business Doc Medical Records [address] [place] [address] Abstract, Provider Social History Tobacco Use Types [...] on filedocumented in this encounter Care Teams Media Marketing Coordinator Relationship Specialty Start Date End Date Michelle Norris MD PCP - General Internal Medicine 03/05/17 03/16/21 [facility], Pcp PCP - General Internal Medicine 03/17/21 05/04/21 Michelle Norris MD PCP - General Internal Medicine 05/05/21 09/13/22 Rosetta Diamond MD [address] [place] [address] PCP - General Internal Medicine 09/14/22 documented as of this encounter
--- OUTSIDE RECORDS SUMMARY | 2025-10-11 02:17 | XMS_ITS | Encounter Summary ---
Author Organization [facility] Prior to 08/15/2024 Address [address] [place] [address] Care Team Providers Care Manager Transport Name Role Phone Michelle Norris MD Primary Care Provider Unavail able [facility], [facility]cp Primary Care Provider [facility] Michelle Norris MD Primary Care Provider Unavail able Rosetta Diamond MD Primary Care Provider + Encounter Details Date Type Department Care Team Description 11/19/2017 Hospital Medical Records [address] [place] [address] Carlos Landrum Social History Tobacco Use Types [...] filedocumented in this encounter Care Teams Manager Transport Relationship Specialty Start Date End Date Michelle Norris MD PCP - General Internal Medicine 03/05/17 03/16/21 [facility], Pcp PCP - General Internal Medicine 03/17/21 05/04/21 Michelle Norris MD PCP - General Internal Medicine 05/05/21 09/13/22 Rosetta Diamond MD [address] [place] [address] PCP - General Internal Medicine 09/14/22 documented as of this encounter
--- OUTSIDE RECORDS SUMMARY | 2025-10-11 02:17 | XMS_ITS | Encounter Summary ---
Author Organization Formerly [facility] Prior to 08/15/2024 Address [address] [place] [address] Care Team Providers Care Cookie Breaker Name Role Phone Michelle Norris MD Primary Care Provider Unavail able [facility], [facility] Primary Care Provider [facility] Michelle Norris MD Primary Care Provider Unavail able Rosetta Diamond MD Primary Care Provider + Reason for Visit * Reason Onset Date Comments other 05/02/2018 hospital admissi on - [facility] Care Encounter Details Date Type Department Care Team Description 05/02/2018 Telephone Adult Medicine [address] [address] Michelle Norris MD other (hospital admission - [facility]) Social History Tobacco Use Types Packs/Day [...] - 05/16/2018 1:49 PM EDT Paradise from [facility] called to confirm Hosp f/u appt on 05/22 at 1:30. She will fax hospital notes to [phone] * Telephone Encounter - Sridevi Raymundo R.N. - 05/16/2018 12:17 PM EDT I left a message for Paradise from [facility] at [phone] to return my call. Pt has hosp f/u appt 05/22 at 1:30 with pcp. * Telephone Encounter - Sridevi Toscano - 05/16/2018 10:43 AM EDT [facility] Returning call * Telephone Encounter - Sho Souza - 05/02/2018 4:56 PM EDT Patient was admitted on 05-01-18 to [facility] dx: suicidal ideation with aplan. documented in this encounter Plan of Treatment Not on file documented as of this encounter Visit Diagnoses Not on filedocumented in this encounter Care Teams Cookie Breaker Relationship Specialty Start Date End Date Michelle Norris MD PCP - General Internal Medicine 03/05/17 03/16/21 [facility] PCP - General Internal Medicine 03/17/21 05/04/21 Michelle Norris MD PCP - General Internal Medicine 05/05/21 09/13/22 Rosetta Diamond MD [address] [place] [address] PCP - General Internal Medicine 09/14/22 documented as of this encounter
--- OUTSIDE RECORDS SUMMARY | 2025-10-11 02:17 | XMS_ITS | Encounter Summary ---
Author Organization [facility] Prior to 08/15/2024 Address [address] [place] [address] Care Team Providers Care Six Pack Packer Name Role Phone Michelle Norris MD Primary Care Provider Unavail able [facility], Pcp Primary Care Provider Unavailabl e Michelle Norris MD Primary Care Provider Unavail able Rosetta Diamond MD Primary Care Provider + Encounter Details Date Type Department Care Team Description 09/09/2018 Hospital Medical Records [address] [place] [address] Jefe Robison NP Social History Tobacco Use [...] on filedocumented in this encounter Care Teams Six Pack Packer Relationship Specialty Start Date End Date Michelle Norris MD PCP - General Internal Medicine 03/05/17 03/16/21 [facility], Pcp PCP - General Internal Medicine 03/17/21 05/04/21 Michelle Norris MD PCP - General Internal Medicine 05/05/21 09/13/22 Rosetta Diamond MD [address] [place] [address] PCP - General Internal Medicine 09/14/22 documented as of this encounter
--- OUTSIDE RECORDS SUMMARY | 2025-10-11 02:17 | XMS_ITS | Encounter Summary ---
Author Organization [facility] Prior to 08/15/2024 Address [address] [place] [address] Care Team Providers Care Financial Services Director Name Role Phone Nikki Alcantar MD Primary Care Provider [phone] Michelle Norris MD Primary Care Provider Unavail able [facility] Primary Care Provider [facility] Michelle Norris MD Primary Care Provider Unavail able Rosetta Diamond MD Primary Care Provider + Encounter Details Date Type Department Care Team Description 05/11/2010 Hospital Medical Records [address] [place] [address] Gulshan Alanis MD Social History Tobacco Use [...] in this encounter Care Teams Financial Services Director Relationship Specialty Start Date End Date Nikki Alcantar MD [address] [place] [address] PCP - General 06/26/05 03/04/17 Michelle Norris MD [address] [place] [address] PCP - General Internal Medicine 03/05/17 03/16/21 [facility], Pcp [address] [place] [address] PCP - General Internal Medicine 03/17/21 05/04/21 Michelle Norris MD [address] [place] [address] PCP - General Internal Medicine 05/05/21 09/13/22 Rosetta Diamond MD [address] [place] [address] [phone] PCP - General Internal Medicine 09/14/22 documented as of this encounter
--- OUTSIDE RECORDS SUMMARY | 2025-10-11 02:17 | XMS_ITS | Encounter Summary ---
Author Organization [facility] Prior to 08/15/2024 Address [address] [place] [address] Care Team Providers Care Manager Video Games Name Role Phone Michelle Norris MD Primary Care Provider Unavail able [facility] Michelle Norris MD Primary Care Provider Unavail able Rosetta Diamond MD Primary Care Provider + Encounter Details Date Type Department Care Team Description 10/07/2018 Hospital Medical Records [address] [place] [address] Errol Snyder [address] [place] [address] Social History Tobacco Use Types Packs/Day Years [...] filedocumented in this encounter Care Teams Manager Video Games Relationship Specialty Start Date End Date Michelle Norris MD PCP - General Internal Medicine 03/05/17 03/16/21 [facility], Pcp PCP - General Internal Medicine 03/17/21 05/04/21 Michelle Norris MD PCP - General Internal Medicine 05/05/21 09/13/22 Rosetta Diamond MD [address] [place] [address] PCP - General Internal Medicine 09/14/22 documented as of this encounter
--- OUTSIDE RECORDS SUMMARY | 2025-10-11 02:17 | XMS_ITS | Encounter Summary ---
Author Organization [facility] Prior to 08/15/2024 Address [address] [place] [address] Care Team Providers Care Tomography Technologist Name Role Phone Michelle Norris MD Primary Care Provider Unavail able [facility] Primary Care Provider [facility] Michelle Lagos MD Primary Care Provider Unavail able Rosetta Diamond MD Primary Care Provider + Reason for Visit * Reason Onset Date Comments Orders Call 01/25/2018 Encounter Details Date Type Department Care Team Description 01/25/2018 Telephone OBGYN - [address] [place] [address] Ying Morton MD Orders Call Social History Tobacco Use Types [...] PM EDT Please place this in Chel bin as she was last to see patient. CMB * Telephone Encounter - Chel Piña - 01/25/2018 12:23 PM EDT Chief Complaint/problem: Fax recevied from [facility] (Viki Cisneros) / verbal; order verification regarding Bridget; Viki would like signature/fax back -- states it can be any provider. Placed in Triage bin How long has the patient had this problem? 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 Last menstrual period (LMP) or EDC (due date): N/A documented in this encounter Plan of Treatment Not on file documented as of this encounter Visit Diagnoses Not on filedocumented in this encounter Care Teams Tomography Technologist Relationship Specialty Start Date End Date Michelle Norris MD PCP - General Internal Medicine 03/05/17 03/16/21 [facility] PCP - General Internal Medicine 03/17/21 05/04/21 Michelle Norris MD PCP - General Internal Medicine 05/05/21 09/13/22 Rosetta Diamond MD [address] [place] [address] PCP - General Internal Medicine 09/14/22 documented as of this encounter
--- OUTSIDE RECORDS SUMMARY | 2025-10-11 02:17 | XMS_ITS | Encounter Summary ---
Author Organization [facility] Prior to 08/15/2024 Address [address] [place] [address] Care Team Providers Care Tractor Engine Mechanic Name Role Phone Katherine Norris MD Primary Care Provider Unavail able [facility] Katherine Lagos MD Primary Care Provider Unavail able Rosetta Diamond MD Primary Care Provider + Reason for Visit * Reason Onset Date Comments hospital follow up 10/16/2017 Encounter Details Date Type Department Care Team Description 10/16/2017 Telephone Adult Medicine [address] [address] Katherine Norris MD hospital follow up Social [...] 1030 with KATHERINE FINE Pt seen at [facility] for crisis notes requested * Telephone Encounter - Deanna Oglesby - 10/16/2017 11:53 AM EST Hospital follow up appointment needed Hospital patient was treated at: [facility] Was this only an ER [...] on filedocumented in this encounter Care Teams Tractor Engine Mechanic Relationship Specialty Start Date End Date Katherine Norris MD PCP - General Internal Medicine 03/05/17 03/16/21 [facility], Pcp PCP - General Internal Medicine 03/17/21 05/04/21 Katherine Norris MD PCP - General Internal Medicine 05/05/21 09/13/22 Rosetta Diamond MD [address] [place] [address] PCP - General Internal Medicine 09/14/22 documented as of this encounter
--- OUTSIDE RECORDS SUMMARY | 2025-10-11 02:17 | XMS_ITS | Encounter Summary ---
Author Organization [facility] Prior to 08/15/2024 Address [address] [place] [address] Care Team Providers Care Form Setter Name Role Phone Nikki Alcantar MD Primary Care Provider [phone] Michelle Norris MD Primary Care Provider Unavail able [facility], Pcp Primary Care Provider UnavailMichelle Colvin MD Primary Care Provider Unavail able Rosetta Diamond MD Primary Care Provider + Encounter Details Date Type Department Care Team Description 09/12/2011 Hospital Medical Records [address] [place] [address] [facility] [place] [address] Social History Tobacco Use Types Packs/Day Years [...] filedocumented in this encounter Care Teams Form Setter Relationship Specialty Start Date End Date Nikki Alcantar MD [address] [place] [address] [phone] PCP - General 06/26/05 03/04/17 Michelle Norris MD [address] [place] [address] PCP - General Internal Medicine 03/05/17 03/16/21 [facility] Pcp [address] [place] [address] PCP - General Internal Medicine 03/17/21 05/04/21 Michelle Norris MD [address] [place] [address] PCP - General Internal Medicine 05/05/21 09/13/22 Rosetta Diamond MD [address] [place] [address] PCP - General Internal Medicine 09/14/22 documented as of this encounter
--- OUTSIDE RECORDS SUMMARY | 2025-10-11 02:17 | XMS_ITS | Encounter Summary ---
Author Organization [facility] Prior to 08/15/2024 Address [address] [place] [address] Care Team Providers Care Conservation Educator Name Role Phone Michelle Norris MD Primary Care Provider Unavail able [facility], Pcp [facility] Michelle Norris MD Primary Care Provider Unavail able Rosetta Diamond MD Primary Care Provider + Encounter Details Date Type Department Care Team Description 04/12/2018 Municipal Bond Trader Report Medical Records [address] [place] [address] Abstract, Provider Social History Tobacco Use Types [...] filedocumented in this encounter Care Teams Conservation Educator Relationship Specialty Start Date End Date Michelle Norris MD PCP - General Internal Medicine 03/05/17 03/16/21 [facility], Pcp PCP - General Internal Medicine 03/17/21 05/04/21 Michelle Norris MD PCP - General Internal Medicine 05/05/21 09/13/22 Rosetta Diamond MD [address] [place] [address] PCP - General Internal Medicine 09/14/22 documented as of this encounter
--- OUTSIDE RECORDS SUMMARY | 2025-10-11 02:17 | XMS_ITS | Encounter Summary ---
Author Organization [facility] Address [address] [place] [address] Care Team Providers Care Curb Machine Operator Name Role Phone Maribel Marquez Primary Care Provider [phone] Encounter Details Date Type Department Care Team (Late st Contact Info) Description 09/15/2025 Lab Requisition [facility] - Main Lab [address] [facility] [place] [address] Wanda Cleveland NP [address] [place] [address] Other long-term (current) drug therapy Social History Tobacco Use [...] Entry Date Author No 07/15/2025 2:29 AM Elsy Hills RN documented in this encounter Plan of Treatment Not on file documented as of this encounter Procedures Procedure Name Priority Date/Time Associated Diagnosis Comments CBC WITH AUTO DIFFERENTIAL Routine 09/15/2025 5:02 AM EST Other superintendent container terminal (current) drug therapy CBC AND DIFFERENTIAL Routine 09/15/2025 5:02 AM EST Other superintendent container terminal (current) drug therapy documented in this encounter Results * (ABNORMAL) CBC auto differential (09/15/2025 5:02 AM EST) WBC 7.9 4.8 - 10.8 K/mcL LAB HEMETOLOGY METHOD 09/15/2025 9:54 AM [facility] LAB RBC 4.60 3.80 - 4.80 M/[facility] LAB HEMETOLOGY METHOD 09/15/2025 9:54 AM [facility] LAB Hemoglobin 14.1 11.5 - 16.0 g/dL LAB HEMETOLOGY METHOD 09/15/2025 9:54 AM [facility] LAB Hematocrit 41.5 35.0 - 47.0 % LAB HEMETOLOGY METHOD 09/15/2025 9:54 AM [facility] LAB MCV 90.8 79.0 - 98.0 FL LAB HEMETOLOGY METHOD 09/15/2025 9:54 AM [facility] LAB MCH 30.9 27.0 - 32.0 pcg LAB HEMETOLOGY METHOD 09/15/2025 9:54 AM [facility] LAB MCHC 34.0 32.0 - 37.0 g/dL LAB HEMETOLOGY METHOD 09/15/2025 9:54 AM [facility] LAB RDW 12.3 11.0 - 15.0 % LAB HEMETOLOGY METHOD 09/15/2025 9:54 AM [facility] LAB Platelets 316 130 - 400 K/mcL LAB HEMETOLOGY METHOD 09/15/2025 9:54 AM [facility] LAB MPV 9.9 7.0 - 11.0 FL LAB HEMETOLOGY METHOD 09/15/2025 9:54 AM [facility] LAB NRBC 0.0 <1.0 % LAB HEMETOLOGY METHOD 09/15/2025 9:54 AM [facility] LAB NRBC Absolute 0.00 <0.10 K/mcL LAB HEMETOLOGY METHOD 09/15/2025 9:54 AM [facility] LAB Neutrophils Relative 61.2 % LAB HEMETOLOGY METHOD 09/15/2025 9:54 AM [facility] LAB Lymphocytes Relative 26.2 % LAB HEMETOLOGY METHOD 09/15/2025 9:54 AM [facility] LAB Monocytes Relative 7.7 % LAB HEMETOLOGY METHOD 09/15/2025 9:54 AM [facility] LAB Eosinophils Relative 3.9 % LAB HEMETOLOGY METHOD 09/15/2025 9:54 AM [facility] LAB Basophils Relative 0.5 % LAB HEMETOLOGY METHOD 09/15/2025 9:54 AM EST [facility] LAB Immature Granulocytes Relative 0.5 % LAB HEMETOLOGY METHOD 09/15/2025 9:54 AM [facility] LAB Neutrophils Absolute 4.82 1.50 - 7.00 K/mcL LAB HEMETOLOGY METHOD 09/15/2025 9:54 AM [facility] LAB Lymphocytes Absolute 2.07 1.00 - 5.00 K/mcL LAB HEMETOLOGY METHOD 09/15/2025 9:54 AM EST [facility] LAB Monocytes Absolute 0.61 0.20 - 1.00 K/mcL LAB HEMETOLOGY METHOD 09/15/2025 9:54 AM [facility] LAB Eosinophils Absolute 0.31 0.00 - 0.50 K/mcL LAB HEMETOLOGY METHOD 09/15/2025 9:54 AM [facility] LAB Basophils Absolute 0.04 0.00 - 0.20 K/mcL LAB HEMETOLOGY METHOD 09/15/2025 9:54 AM [facility] LAB Immature Granulocytes Absolute 0.04(H) 0.00 - 0.03 K/mcL LAB HEMETOLOGY METHOD 09/15/2025 9:54 AM [facility] LAB Blood Venous blood specimen / Unknown Venipuncture / Unknown 09/15/2025 5:02 AM EST 09/15/2025 9:29 AM EST us Wanda Cleveland CLINICAL MASSAGE THERAPIST LAB BLOOD ORDERABLES Final R esult [facility]) [facility] [address] [place] [address], documented in this encounter Visit Diagnoses Diagnosis Other superintendent container terminal (current) drug therapy documented in this encounter Care Teams Curb Machine Operator Relationship Specialty Start Date End Date Maribel Marquez [address] [place] [phone] PCP - General 09/08/24 documented as of this encounter
--- OUTSIDE RECORDS SUMMARY | 2025-10-11 02:17 | XMS_ITS | Encounter Summary ---
Author Organization [facility] Prior to 08/15/2024 Address [address] [place] [address] Care Team Providers Care Worship Pastor Name Role Phone Nikki Alcantar MD Primary Care Provider [phone] Michelle Norris MD Primary Care Provider Unavail able [facility] Primary Care Provider [facility] Michelle Norris MD Primary Care Provider Unavail able Rosetta Diamond MD Primary Care Provider + Encounter Details Date Type Department Care Team Description 10/15/2012 Night Triage Doc Medical Records [address] [place] [id number] Abstract, Provider Social History Tobacco Use Types [...] on filedocumented in this encounter Care Teams Worship Pastor Relationship Specialty Start Date End Date Nikki Alcantar MD [address] [place] [address] PCP - General 06/26/05 03/04/17 Michelle Norris MD [address] [place] [address] PCP - General Internal Medicine 03/05/17 03/16/21 [facility], Pcp [address] [place] [address] PCP - General Internal Medicine 03/17/21 05/04/21 Michelle Norris MD [address] [place] [address] PCP - General Internal Medicine 05/05/21 09/13/22 Rosetta Diamond MD [address] [place] [address] PCP - General Internal Medicine 09/14/22 documented as of this encounter
--- OUTSIDE RECORDS SUMMARY | 2025-10-11 02:17 | XMS_ITS | Encounter Summary ---
Author Organization [facility] Prior to 08/15/2024 Address [address] [place] [address] Care Team Providers Care Investigation Division Lieutenant Name Role Phone Nikki Alcantar MD Primary Care Provider [phone] Michelle Norris MD Primary Care Provider Unavail able [facility] Primary Care Provider [facility] Michelle Norris MD Primary Care Provider Unavail able Rosetta Diamond MD Primary Care Provider + Encounter Details Date Type Department Care Team Description 11/22/2011 Hospital Medical Records [address] [place] [address] Jose Echols MD Social History Tobacco Use [...] on filedocumented in this encounter Care Teams Investigation Division Lieutenant Relationship Specialty Start Date End Date Nikki Alcantar MD [address] [place] [address] PCP - General 06/26/05 03/04/17 Michelle Norris MD [address] [place] [address] PCP - General Internal Medicine 03/05/17 03/16/21 [facility], Pcp [address] [place], [place] [phone] PCP - General Internal Medicine 03/17/21 05/04/21 Michelle Norris MD [address] [place] [address] PCP - General Internal Medicine 05/05/21 09/13/22 Rosetta Diamond MD [address] [place] [address] [phone] PCP - General Internal Medicine 09/14/22 documented as of this encounter
--- OUTSIDE RECORDS SUMMARY | 2025-10-11 02:17 | XMS_ITS | Encounter Summary ---
Author Organization [facility] Prior to 08/15/2024 Address [address] [place] [address] Care Team Providers Care Cane Burner Name Role Phone Michelle Norris MD Primary Care Provider Unavail able [facility], Pcp Primary [facility] Michelle Norris MD Primary Care Provider Unavail able Rosetta Diamond MD Primary Care Provider + Encounter Details Date Type Department Care Team Description 08/03/2017 Operations Technician Report Medical Records [address] [place] [phone] Abstract, Provider Social History Tobacco Use Types [...] on filedocumented in this encounter Care Teams Cane Burner Relationship Specialty Start Date End Date Michelle Norris MD PCP - General Internal Medicine 03/05/17 03/16/21 [facility], Pcp PCP - General Internal Medicine 03/17/21 05/04/21 Michelle Norris MD PCP - General Internal Medicine 05/05/21 09/13/22 Rosetta Diamond MD [address] [place] [address] PCP - General Internal Medicine 09/14/22 documented as of this encounter
--- OUTSIDE RECORDS SUMMARY | 2025-10-11 02:17 | XMS_ITS | Encounter Summary ---
Author Organization [facility] Prior to 08/15/2024 Address [address] [place] [address] Care Team Providers Care Manager Golf Name Role Phone Nikki Alcantar MD Primary Care Provider [phone] Michelle Norris MD Primary Care Provider Unavail able [facility] Primary Care [facility] Michelle Norris MD Primary Care Provider Unavail able Rosetta Diamond MD Primary Care Provider + Reason for Visit * Reason Onset Date Comments APPOINTMENT 10/26/2011 missed appointme nt w/Dr Alcantar Encounter Details Date Type Department Care Team Description 10/26/2011 Telephone Adult Medicine [address] [phone] Nikki Alcantar MD [address] [place] [address] [phone] APPOINTMENT (missed appointment w/Dr Alcantar) Social History [...] Telephone Encounter - Lindsay Vieyra L.P.N. - 10/26/2011 10:28 AM EST M/L for call back from Pt- she missed an appointment w/Dr Alcantar today for hosp. F/u- needs to reschedule documented in this encounter Plan of Treatment Not on file documented as of this encounter Visit Diagnoses Not on filedocumented in this encounter Care Teams Manager Golf Relationship Specialty Start Date End Date Nikki Alcantar MD [address] [place] [address] PCP - General 06/26/05 03/04/17 Michelle Norris MD [address] [place] [address] PCP - General Internal Medicine 03/05/17 03/16/21 [place] [address] PCP - General Internal Medicine 03/17/21 05/04/21 Michelle Norris MD [address] [place] [address] PCP - General Internal Medicine 05/05/21 09/13/22 Rosetta Diamond MD [address] [place] [address] PCP - General Internal Medicine 09/14/22 documented as of this encounter
--- OUTSIDE RECORDS SUMMARY | 2025-10-11 02:17 | XMS_ITS | Encounter Summary ---
Author Organization [facility] Prior to 08/15/2024 Address [address] [place] [address] Care Team Providers Care Front Desk Specialist Name Role Phone Nikki Alcantar MD Primary Care Provider [phone] Michelle Norris MD Primary Care Provider Unavail able [facility] Primary Care Provider [facility] Michelle Norris MD Primary Care Provider Unavail able Rosetta Diamond MD Primary Care Provider + Encounter Details Date Type Department Care Team Description 07/31/2012 Ict Teacher Report Medical Records [address] [place] [address] Julio Paredes MD Social History Tobacco Use [...] filedocumented in this encounter Care Teams Front Desk Specialist Relationship Specialty Start Date End Date Nikki Alcantar MD [address] [place], [place] [phone] PCP - General 06/26/05 03/04/17 Michelle Norris MD [address] [place] [address] PCP - General Internal Medicine 03/05/17 03/16/21 [facility], Pcp [address] [place] [address] PCP - General Internal Medicine 03/17/21 05/04/21 Michelle Norris MD [address] [place] [address] PCP - General Internal Medicine 05/05/21 09/13/22 Rosetta Diamond MD [address] [place] [phone] PCP - General Internal Medicine 09/14/22 documented as of this encounter
--- OUTSIDE RECORDS SUMMARY | 2025-10-11 02:17 | XMS_ITS | Encounter Summary ---
Author Organization [facility] Prior to 08/15/2024 Address [address] [place] [address] Care Team Providers Care Director Long Term Care Name Role Phone Nikki Alcantar MD Primary Care Provider [phone] Michelle Norris MD Primary Care Provider Unavail able [facility] Primary Care Provider [facility] Michelle Norris MD Primary Care Provider Unavail able Rosetta Diamond MD Primary Care Provider + Encounter Details Date Type Department Care Team Description 09/30/2010 Hospital Medical Records [address] [place] [address] Rolando Ku Social History Tobacco Use Types [...] filedocumented in this encounter Care Teams Director Long Term Care Relationship Specialty Start Date End Date Nikki Alcantar MD [address] [place] [address] PCP - General 06/26/05 03/04/17 Michelle Norris MD [address] [place] [address] PCP - General Internal Medicine 03/05/17 03/16/21 [facility], Pcp [address] [place] [address] 76782 PCP - General Internal Medicine 03/17/21 05/04/21 Michelle Norris MD [address] [place] [address] 8[address]60 PCP - General Internal Medicine 05/05/21 09/13/22 Rosetta Diamond MD [address] [place] [address]20 PCP - General Internal Medicine 09/14/22 documented as of this encounter
--- OUTSIDE RECORDS SUMMARY | 2025-10-11 02:17 | XMS_ITS | Encounter Summary ---
Author Organization [facility] Prior to 08/15/2024 Address [address] [place] [address] Care Team Providers Care Diversified Crops Farmer Name Role Phone Michelle Norris MD Primary Care Provider Unavail able [facility], Pcp Primary Care [facility] Michelle Norris MD Primary Care Provider Unavail able Rosetta Diamond MD Primary Care Provider + Encounter Details Date Type Department Care Team Description 10/16/2017 Hospital Medical Records [address] [place] [address] Carlos Landrum Social History Tobacco Use Types [...] on filedocumented in this encounter Care Teams Diversified Crops Farmer Relationship Specialty Start Date End Date Michelle Norris MD PCP - General Internal Medicine 03/05/17 03/16/21 [facility], Pcp PCP - General Internal Medicine 03/17/21 05/04/21 Michelle Norris MD PCP - General Internal Medicine 05/05/21 09/13/22 Rosetta Diamond MD [address] [place] [address] PCP - General Internal Medicine 09/14/22 documented as of this encounter
--- OUTSIDE RECORDS SUMMARY | 2025-10-11 02:18 | XMS_ITS | Encounter Summary ---
Author Organization [facility] Prior to 08/15/2024 Address [address] [place] [address] Care Team Providers Care Curtain Stretcher Name Role Phone Nikki Alcantar MD Primary Care Provider [phone] Michelle Norris MD Primary Care Provider Unavail able [facility] Primary Care Provider [facility] Michelle Norris MD Primary Care Provider Unavail able Rosetta Diamond MD Primary Care Provider + Encounter Details Date Type Department Care Team Description 05/09/2016 Hospital Medical Records [address] [place] [address] Marlen Grande Social History Tobacco Use Types [...] on filedocumented in this encounter Care Teams Curtain Stretcher Relationship Specialty Start Date End Date Nikki Alcantar MD [address] [place] [address]69 PCP - General 06/26/05 03/04/17 Michelle Norris MD [address] [place] [address] 99453 PCP - General Internal Medicine 03/05/17 03/16/21 [facility], Pcp [address] [place] [address] 51841 PCP - General Internal Medicine 03/17/21 05/04/21 Michelle Norris MD [address] [place] [address] 81076 PCP - General Internal Medicine 05/05/21 09/13/22 Rosetta Diamond MD [address] [place] [address]20 PCP - General Internal Medicine 09/14/22 documented as of this encounter
--- OUTSIDE RECORDS SUMMARY | 2025-10-11 02:18 | XMS_ITS | Encounter Summary ---
Author Organization [facility] Prior to 08/15/2024 Address [address] [place] [address] Care Team Providers Care Optical Effects Layout Person Name Role Phone Nikki Aclantar MD Primary Care Provider Michelle Norris MD Primary Care Provider Unavail able [facility] Primary [facility] Provider [facility] [place] Michelle Norris MD Primary Care Provider Unavail able Rosetta Diamond MD Primary Care Provider + Reason for Visit * Reason Onset Date Comments Faxed Refill 02/01/2017 Encounter Details Date Type Department Care Team Description 02/01/2017 Refill Adult Medicine [address] [phone] Nikki Alcantar MD [address] [place] [address] [phone] Faxed Refill Social History Tobacco Use Types [...] IS ON THE MED LIST ABOVE) [facility] MEDICAL RECORDS COORDINATOR WILL BRING PATIENT IN FOR LABS All of the medications requested were on the CURRENT MEDS list Did you check the Pharmacy information above?: YES Patient wants: 30 -day supply Is this a mail order prescription request ? NO Patients current insurance carrier is: [place] / [place] / Product Type: MEDICARE [id number] documented in this encounter Plan of Treatment Not on file documented as of this encounter Visit Diagnoses Not on filedocumented in this encounter Care Teams Optical Effects Layout Person Relationship Specialty Start Date End Date Nikki Alcantar MD [address] [place] [address]20 PCP - General 06/26/05 03/04/17 Michelle Norris MD [address] [place] [address] 64939 PCP - General Internal Medicine 03/05/17 03/16/21 [facility], [address] [address] PCP - General Internal Medicine 03/17/21 05/04/21 Michelle Norris MD [address] [place], [place] [phone] PCP - General Internal Medicine 05/05/21 09/13/22 Rosetta Diamond MD [address] [place], [place] [phone] PCP - General Internal Medicine 09/14/22 documented as of this encounter
--- OUTSIDE RECORDS SUMMARY | 2025-10-11 02:18 | XMS_ITS | Encounter Summary ---
Author Organization [facility] Prior to 08/15/2024 Address [address] [place] [address] Care Team Providers Care Talent Management Specialist Name Role Phone Nikki Alcantar MD Primary Care Provider [phone] Michelle Norris MD Primary Care Provider Unavail able [facility] Primary Care Provider [facility] Michelle Norris MD Primary Care Provider Unavail able Rosetta Diamond MD Primary Care Provider + Encounter Details Date Type Department Care Team Description 11/14/2016 Hospital Medical Records [address] [place] [address] Marlen Grande Social History Tobacco Use Types [...] filedocumented in this encounter Care Teams Talent Management Specialist Relationship Specialty Start Date End Date Nikki Alcantar MD [address] [place] [address] PCP - General 06/26/05 03/04/17 Michelle Norris MD [address] [place] [address] 87215 PCP - General Internal Medicine 03/05/17 03/16/21 [facility], Pcp [address] [place] [address] 14979 PCP - General Internal Medicine 03/17/21 05/04/21 Michelle Norris MD [address] [place] [address] 45573 PCP - General Internal Medicine 05/05/21 09/13/22 Rosetta Diamond MD [address] [place] [address] PCP - General Internal Medicine 09/14/22 documented as of this encounter
--- OUTSIDE RECORDS SUMMARY | 2025-10-11 02:18 | XMS_ITS | Encounter Summary ---
Author Organization [facility] Prior to 08/15/2024 Address [address] [place] [address] Care Team Providers Care Ic Designer Custom Name Role Phone Nikki Alcantar MD Primary Care Provider [phone] Michelle Norris MD Primary Care Provider Unavail able [facility] Primary Care Provider [facility] Michelle Norris MD Primary Care Provider Unavail able Rosetta Diamond MD Primary Care Provider + Reason for Visit * Reason Onset Date Comments Call From Hospital 06/07/2016 Encounter Details Date Type Department Care Team Description 06/07/2016 Telephone Adult Medicine [address] [phone] Nikki Alcantar MD [address] [place] [address] [phone] Call From Hospital Social History Tobacco Use [...] Donavon Harvey - 06/07/2016 8:48 AM EDT [facility] Phsyc unit calling to inform us that patient was admitted to phsyc unit yesterday documented in this encounter Plan of Treatment Not on file documented as of this encounter Visit Diagnoses Not on filedocumented in this encounter Care Teams Ic Designer Custom Relationship Specialty Start Date End Date Nikki Alcantar MD [address] [place] [address] PCP - General 06/26/05 03/04/17 Michelle Norris MD [address] [place] [address] PCP - General Internal Medicine 03/05/17 03/16/21 [facility] Pcp [address] [place] [address] PCP - General Internal Medicine 03/17/21 05/04/21 Michelle Norris MD [address] [place] [address] PCP - General Internal Medicine 05/05/21 09/13/22 Rosetta Diamond MD [address] [place] [address] PCP - General Internal Medicine 09/14/22 documented as of this encounter
--- OUTSIDE RECORDS SUMMARY | 2025-10-11 02:18 | XMS_ITS | Encounter Summary ---
Author Organization [facility] Prior to 08/15/2024 Address [address] [place] [address] Care Team Providers Care Rougher Helper Name Role Phone Nikki Alcantar MD Primary Care Provider [phone] Michelle Norris MD Primary Care Provider Unavail able [facility] Primary Care Provider [facility] Michelle Norris MD Primary Care Provider Unavail able Rosetta Diamond MD Primary Care Provider + Reason for Visit * Reason Onset Date Comments Call From Hospital 05/11/2016 Encounter Details Date Type Department Care Team Description 05/11/2016 Telephone Adult Medicine [address] [phone] Nikki Alcantar MD [address] [place] [address] [phone] Call From Hospital Social History Tobacco Use [...] DR. Alcantar patient has been admitted to [facility] Psych Unit as of 05/09/16 . documented in this encounter Plan of Treatment Not on file documented as of this encounter Visit Diagnoses Not on filedocumented in this encounter Care Teams Rougher Helper Relationship Specialty Start Date End Date Nikki Alcantar MD [address] [place] [address] PCP - General 06/26/05 03/04/17 Michelle Norris MD [address] [place] [address]31 PCP - General Internal Medicine 03/05/17 03/16/21 [place] [address] PCP - General Internal Medicine 03/17/21 05/04/21 Michelle Norris MD [address] [place] [address] PCP - General Internal Medicine 05/05/21 09/13/22 Rosetta Diamond MD [address] [place] [address] PCP - General Internal Medicine 09/14/22 documented as of this encounter
--- OUTSIDE RECORDS SUMMARY | 2025-10-11 02:18 | XMS_ITS | Encounter Summary ---
Author Organization [facility] Prior to 08/15/2024 Address [address] [place] [address] Care Team Providers Care Restaurant Area Manager Name Role Phone Nikki Alcantar MD Primary Care Provider [phone] Michelle Norris MD Primary Care Provider Unavail able [facility] Primary Care Provider [facility] Michelle Norris MD Primary Care Provider Unavail able Rosetta Diamond MD Primary Care Provider + Encounter Details Date Type Department Care Team Description 05/24/2016 Hospital Medical Records [address] [place] [address] Chuck Dave MD Social History Tobacco Use [...] filedocumented in this encounter Care Teams Restaurant Area Manager Relationship Specialty Start Date End Date Nikki Alcantar MD [address] [place] [address] 38889 PCP - General 06/26/05 03/04/17 Michelle Norris MD [address] [place] [address] 34791 PCP - General Internal Medicine 03/05/17 03/16/21 [facility], Pcp [address] [place] [address] 6[address]45 PCP - General Internal Medicine 03/17/21 05/04/21 Michelle Norris MD [address] [place] [address] 09933 PCP - General Internal Medicine 05/05/21 09/13/22 Rosetta Diamond MD [address] [place] [address]20 PCP - General Internal Medicine 09/14/22 documented as of this encounter
--- OUTSIDE RECORDS SUMMARY | 2025-10-11 02:18 | XMS_ITS | Encounter Summary ---
Author Organization [facility] Prior to 08/15/2024 Address [address] [place] [address] Care Team Providers Care Oyster Harvester Name Role Phone Nikki Alcantar MD Primary Care Provider [phone] Michelle Norris MD Primary Care Provider Unavail able [facility] Primary Care Provider [facility] Michelle Norris MD Primary Care Provider Unavail able Rosetta Diamond MD Primary Care Provider + Reason for Visit * Reason Onset Date Comments Call From Office 02/27/2017 Encounter Details Date Type Department Care Team Description 02/27/2017 Telephone Adult Medicine [address] [phone] Nikki Alcantar MD [address] [place] [address] [phone] Call From Md Office Social History Tobacco [...] - 02/27/2017 9:12 AM EDT Ros from [facility] calling. She would like Dr. Alcantar to know that Lucita is being seen there for mental health issues. She does not need a call back. documented in this encounter Plan of Treatment Not on file documented as of this encounter Visit Diagnoses Not on filedocumented in this encounter Care Teams Oyster Harvester Relationship Specialty Start Date End Date Nikki Alcantar MD [address] [place] [address] PCP - General 06/26/05 03/04/17 Michelle Norris MD [address] [place] [address] PCP - General Internal Medicine 03/05/17 03/16/21 [place] [address] PCP - General Internal Medicine 03/17/21 05/04/21 Michelle Norris MD [address] [place] [address] PCP - General Internal Medicine 05/05/21 09/13/22 Rosetta Diamond MD [address] [place] [address] PCP - General Internal Medicine 09/14/22 documented as of this encounter
--- OUTSIDE RECORDS SUMMARY | 2025-10-11 02:18 | XMS_ITS | Encounter Summary ---
Author Organization [facility] Prior to 08/15/2024 Address [address] [place] [address] Care Team Providers Care Telegraph Plant Maintainer Name Role Phone Nikki Alcantar MD Primary Care Provider [phone] Michelle Norris MD Primary Care Provider Unavail able [facility] Primary Care Provider [place] [facility] Michelle Norris MD Primary Care Provider Unavail able Rosetta Diamond MD Primary Care Provider + Encounter Details Date Type Department Care Team Description 10/05/2010 Hospital Medical Records [address] [place] [address] [place] Social History Tobacco Use Types Packs/Day Years [...] filedocumented in this encounter Care Teams Telegraph Plant Maintainer Relationship Specialty Start Date End Date Nikki Alcantar MD [address] [place] [address] PCP - General 06/26/05 03/04/17 Michelle Norris MD [address] [place] [address] PCP - General Internal Medicine 03/05/17 03/16/21 [facility], Pcp [address] [place] [address] PCP - General Internal Medicine 03/17/21 05/04/21 Michelle Norris MD [address] [place] [address] PCP - General Internal Medicine 05/05/21 09/13/22 Rosetta Diamond MD [address] [place] [address] PCP - General Internal Medicine 09/14/22 documented as of this encounter
--- OUTSIDE RECORDS SUMMARY | 2025-10-11 02:18 | XMS_ITS | Encounter Summary ---
Author Organization [facility] Prior to 08/15/2024 Address [address] [place] [address] Care Team Providers Care Churn Operator Name Role Phone Nikki Alcantar MD Primary Care Provider [phone] Michelel Norris MD Primary Care Provider Unavail able [facility] [place] [facility], [facility] Primary Care Provider [facility] Michelle Norris MD Primary Care Provider Unavail able Rosetta Diamond MD Primary Care Provider + Reason for Visit * Reason Onset Date Comments Faxed Order 09/05/2016 Encounter Details Date Type Department Care Team Description 09/05/2016 Telephone Adult Medicine [address] [phone] Nikki Alcantar MD [address] [place] [address] [phone] Faxed Order Social History Tobacco Use Types [...] Harvey - 09/11/2016 1:31 PM EST Juan kwong call for wound care orders [phone] * Telephone Encounter - Isaac Harvey - 09/05/2016 2:25 PM EST Medical resources faxed supplimental orders for signature documented in this encounter Plan of Treatment Not on file documented as of this encounter Visit Diagnoses Not on filedocumented in this encounter Care Teams Churn Operator Relationship Specialty Start Date End Date Nikki Alcantar MD [address] [place] [address] PCP - General 06/26/05 03/04/17 Michelle Norris MD [address] [place] [address] PCP - General Internal Medicine 03/05/17 03/16/21 [place] [address] PCP - General Internal Medicine 03/17/21 05/04/21 Michelle Norris MD [address] [place] [address] PCP - General Internal Medicine 05/05/21 09/13/22 Rosetta Diamond MD [address] [place] [address] PCP - General Internal Medicine 09/14/22 documented as of this encounter
--- OUTSIDE RECORDS SUMMARY | 2025-10-11 02:18 | XMS_ITS | Encounter Summary ---
Author Organization [facility] Prior to 08/15/2024 Address [address] [place] [address] Care Team Providers Care Classroom Instructional Aide Name Role Phone Nikki Kumar MD Primary Care Provider [phone] Michelle Norris MD Primary Care Provider Unavail able [facility], Pcp [facility] Michelle Norris MD Primary Care Provider Unavail able Rosetta Diamond MD Primary Care Provider + Reason for Visit * Reason Onset Date Comments Faxed Order 09/22/2016 Encounter Details Date Type Department Care Team Description 09/22/2016 Telephone Adult Medicine [address] [phone] Nikki Kumar MD [address] [place] [address] [phone] Faxed Order Social History Tobacco Use Types [...] on filedocumented in this encounter Care Teams Classroom Instructional Aide Relationship Specialty Start Date End Date Nikki Kumar MD [address] [place] [address] PCP - General 06/26/05 03/04/17 Michelle Norris MD [address] [place], [place] [phone] PCP - General Internal Medicine 03/05/17 03/16/21 [place] [address] PCP - General Internal Medicine 03/17/21 05/04/21 Michelle Norris MD [address] [place] [address] PCP - General Internal Medicine 05/05/21 09/13/22 Rosetta Diamond MD [address] [place], [place] [phone] PCP - General Internal Medicine 09/14/22 documented as of this encounter
--- OUTSIDE RECORDS SUMMARY | 2025-10-11 02:18 | XMS_ITS | Encounter Summary ---
Author Organization [facility] Prior to 08/15/2024 Address [address] [place] [address] Care Team Providers Care Customer Pricing Manager Name Role Phone Nikki Alcantar MD Primary Care Provider [phone] Michelle Norris MD Primary Care Provider Unavail able [facility] Primary Care Provider [facility] Michelle Norris MD Primary Care Provider Unavail able Rosetta Diamond MD Primary Care Provider + Reason for Visit * Reason Onset Date Comments APPOINTMENT 04/14/2011 MISSED APPOINTME NT 04/14/11 Encounter Details Date Type Department Care Team Description 04/14/2011 Telephone Adult Medicine [address] [phone] Nikki Alcantar MD [address] [place] [address] [phone] APPOINTMENT (MISSED APPOINTMENT 04/14/11) Social History Tobacco [...] * Telephone Encounter - Lindsay MachadoPRobiNRobi - 04/14/2011 10:54 AM EDT M/l FOR CALL BACK FROM PT PT MISSED APPT TODAY W/DR ALCANTAR- NEEDS TO RESCHEDULE documented in this encounter Plan of Treatment Not on file documented as of this encounter Visit Diagnoses Not on filedocumented in this encounter Care Teams Customer Pricing Manager Relationship Specialty Start Date End Date Nikki Alcantar MD [address] [place] [address] PCP - General 06/26/05 03/04/17 Michelle Norris MD [address] [place] [address] PCP - General Internal Medicine 03/05/17 03/16/21 [place] [address] PCP - General Internal Medicine 03/17/21 05/04/21 Michelle Norris MD [address] [place] [address] PCP - General Internal Medicine 05/05/21 09/13/22 Rosetta Diamond MD [address] [place] [address] PCP - General Internal Medicine 09/14/22 documented as of this encounter
--- OUTSIDE RECORDS SUMMARY | 2025-10-11 02:18 | XMS_ITS | Encounter Summary ---
Author Organization [facility] Prior to 08/15/2024 Address [address] [place] [address] Care Team Providers Care Squeegee Tender Name Role Phone Nikki Alcantar MD Primary Care Provider [phone] Michelle Norris MD Primary Care Provider Unavail able [facility] Primary Care Provider [facility] Michelle Norris MD Primary Care Provider Unavail able Rosetta Diamond MD Primary Care Provider + Encounter Details Date Type Department Care Team Description 05/14/2009 Hospital Medical Records [address] [place] [phone] Subhash Mcdaniel Social History Tobacco Use Types [...] on filedocumented in this encounter Care Teams Squeegee Tender Relationship Specialty Start Date End Date Nikki Alcantar MD [address] [place] [address] PCP - General 06/26/05 03/04/17 Michelle Norris MD [address] [place] [address] PCP - General Internal Medicine 03/05/17 03/16/21 [facility], Pcp [address] [place] [address] PCP - General Internal Medicine 03/17/21 05/04/21 Michelle Norris MD [address] [place] [address]64 PCP - General Internal Medicine 05/05/21 09/13/22 Rosetta Diamond MD [address] [place] [address] [phone] PCP - General Internal Medicine 09/14/22 documented as of this encounter
--- OUTSIDE RECORDS SUMMARY | 2025-10-11 02:18 | XMS_ITS | Encounter Summary ---
Author Organization [facility] Prior to 08/15/2024 Address [address] [place] [address] Care Team Providers Care Sample Steamer Name Role Phone Nikki Alcantar MD Primary Care Provider [phone] Michelle Norris MD Primary Care Provider Unavail able [facility] Primary Care Provider [facility] Michelle Norris MD Primary Care Provider Unavail [facility] Rosetta Diamond MD Primary Care Provider + Encounter Details Date Type Department Care Team Description 01/19/2017 Business Doc Medical Records [address] [place] [phone] Abstract, Provider Social History Tobacco Use Types [...] filedocumented in this encounter Care Teams Sample Steamer Relationship Specialty Start Date End Date Nikki Alcantar MD [address] [place] [address] PCP - General 06/26/05 03/04/17 Michelle Norris MD [address] [place] [address] PCP - General Internal Medicine 03/05/17 03/16/21 [facility], Pcp [address] [place] [address] PCP - General Internal Medicine 03/17/21 05/04/21 Michelle Norris MD [address] [place] [address]64 PCP - General Internal Medicine 05/05/21 09/13/22 Rosetta Diamond MD [address] [place] [address] PCP - General Internal Medicine 09/14/22 documented as of this encounter
--- OUTSIDE RECORDS SUMMARY | 2025-10-11 02:18 | XMS_ITS | Encounter Summary ---
Author Organization [facility] Prior to 08/15/2024 Address [address] [place] [address] Care Team Providers Care Oyster Sorter Name Role Phone Nikki Alcantar MD Primary Care Provider Michelle Norris MD Primary Care Provider Unavail able [facility] Primary Care Provider [facility] Michelle Norris MD Primary Care Provider Unavail able Rosetta Diamond MD Primary Care Provider + Encounter Details Date Type Department Care Team Description 06/06/2016 Director Orange Report Medical Records [address] [place] [phone] Chuck Dave MD Social History Tobacco Use [...] filedocumented in this encounter Care Teams Oyster Sorter Relationship Specialty Start Date End Date Nikki Alcantar MD [address] [place] [address] 19586 PCP - General 06/26/05 03/04/17 Michelle Norris MD [address] [place] [address] 51304 PCP - General Internal Medicine 03/05/17 03/16/21 [facility], Pcp [address] [place] [address] 32480 PCP - General Internal Medicine 03/17/21 05/04/21 Michelle Norris MD [address] [place] [address] 88580 PCP - General Internal Medicine 05/05/21 09/13/22 Rosetta Diamond MD [address] [place] [address] [phone] PCP - General Internal Medicine 09/14/22 documented as of this encounter
--- OUTSIDE RECORDS SUMMARY | 2025-10-11 02:18 | XMS_ITS | Encounter Summary ---
Author Organization [facility] Prior to 08/15/2024 Address [address] [place] [address] Care Team Providers Care Explosive Ordnance Technician Name Role Phone Nikki Alcantar MD Primary Care Provider [phone] Michelle Norris MD Primary Care Provider Unavail able [facility], Pcp [facility] Michelle [facility] MD Primary Care Provider Unavail able Rosetta Diamond MD Primary Care Provider + Reason for Visit * Reason Onset Date Comments Faxed Order 04/26/2016 Encounter Details Date Type Department Care Team Description 04/26/2016 Telephone Adult Medicine [address] [phone] Nikki Alcantar MD [address] [place] [address] [phone] Faxed Order Social History Tobacco Use Types [...] Narda Chavarria - 04/26/2016 10:32 AM EDT [facility] would like Dr. Alcantar's signature on faxed orders documented in this encounter Plan of Treatment Not on file documented as of this encounter Visit Diagnoses Not on filedocumented in this encounter Care Teams Explosive Ordnance Technician Relationship Specialty Start Date End Date Nikki Alcantar MD [address] [place] [address] PCP - General 06/26/05 03/04/17 Michelle Norris MD [address] [place] [address] 74834 PCP - General Internal Medicine 03/05/17 03/16/21 [place] [address] PCP - General Internal Medicine 03/17/21 05/04/21 Michelle Norris MD [address] [place] [address] PCP - General Internal Medicine 05/05/21 09/13/22 Rosetta Diamond MD [address] [place], [place] [phone] PCP - General Internal Medicine 09/14/22 documented as of this encounter
--- OUTSIDE RECORDS SUMMARY | 2025-10-11 02:18 | XMS_ITS | Encounter Summary ---
Author Organization [facility] Prior to 08/15/2024 Address [address] [place] [address] Care Team Providers Care Speeder Frame Tender Name Role Phone Nikki Alcantar MD Primary Care Provider [phone] Michelle Norris MD Primary Care Provider Unavail able [facility] [place] Care Provider [facility] Michelle Norris MD Primary Care Provider Unavail [facility] Rosetta Diamond MD Primary Care Provider + Encounter Details Date Type Department Care Team Description 09/06/2016 Home Health Certification Medical Records [address] [place] [phone] Social History Tobacco Use Types Packs/Day Years [...] on filedocumented in this encounter Care Teams Speeder Frame Tender Relationship Specialty Start Date End Date Nikki Alcantar MD [address] [place] [address] 73088 PCP - General 06/26/05 03/04/17 Michelle Norris MD [address] [place] [address] 95383 PCP - General Internal Medicine 03/05/17 03/16/21 [facility], Pcp [address] [place] [address] 73391 PCP - General Internal Medicine 03/17/21 05/04/21 Michelle Norris MD [address] [place] [address] 27061 PCP - General Internal Medicine 05/05/21 09/13/22 Rosetta Diamond MD [address] [place] [address] 01020 PCP - General Internal Medicine 09/14/22 documented as of this encounter
--- OUTSIDE RECORDS SUMMARY | 2025-10-11 02:18 | XMS_ITS | Encounter Summary ---
Author Organization [facility] Prior to 08/15/2024 Address [address] [place] [address] Care Team Providers Care Ventilator Specialist Name Role Phone Nikki Alcantar MD Primary Care Provider [phone] Michelle Norris MD Primary Care Provider Unavail able [facility] Primary Care Provider [facility] Michelle Norris MD Primary Care Provider Unavail able Rosetta Diamond MD Primary Care Provider + Encounter Details Date Type Department Care Team Description 05/22/2009 Hospital Medical Records [address] [place] [address] 13846 Shelly Espana MD Social History Tobacco Use [...] on filedocumented in this encounter Care Teams Ventilator Specialist Relationship Specialty Start Date End Date Nikki Alcantar MD [address] [place] [address]22 PCP - General 06/26/05 03/04/17 Michelle Norris MD [address] [place] [address] PCP - General Internal Medicine 03/05/17 03/16/21 [facility], Pcp [address] [place] [address] PCP - General Internal Medicine 03/17/21 05/04/21 Michelle Norris MD [address] [place] [address] 01621 PCP - General Internal Medicine 05/05/21 09/13/22 Rosetta Diamond MD [address] [place] [address] 01020 PCP - General Internal Medicine 09/14/22 documented as of this encounter
--- OUTSIDE RECORDS SUMMARY | 2025-10-11 02:18 | XMS_ITS | Encounter Summary ---
Author Organization [facility] Prior to 08/15/2024 Address [address] [place] [address] Care Team Providers Care Screed Operator Name Role Phone Nikki Alcantar MD Primary Care Provider [phone] Michelle Norris MD Primary Care Provider Unavail able [facility], [facility] Michelle Norris MD Primary Care Provider Unavail able Rosetta Diamond MD Primary Care Provider + Reason for Visit * Reason Onset Date Comments VNA Call 09/05/2016 Encounter Details Date Type Department Care Team Description 09/05/2016 Telephone Adult Medicine [address] [phone] Nikki Alcantar MD [address] [place] [address] [phone] VNA Call Social History Tobacco Use Types [...] on filedocumented in this encounter Care Teams Screed Operator Relationship Specialty Start Date End Date Nikki Alcantar MD [address] [place] [address] PCP - General 06/26/05 03/04/17 Michelle Norris MD [address] [place] [address] PCP - General Internal Medicine 03/05/17 03/16/21 [place] [address] PCP - General Internal Medicine 03/17/21 05/04/21 Michelle Norris MD [address] [place] [address] PCP - General Internal Medicine 05/05/21 09/13/22 Rosetta Diamond MD [address] [place] [address] PCP - General Internal Medicine 09/14/22 documented as of this encounter
--- OUTSIDE RECORDS SUMMARY | 2025-10-11 02:18 | XMS_ITS | Encounter Summary ---
Author Organization [facility] Prior to 08/15/2024 Address [address] [place] [address] Care Team Providers Care Shell Molding Roller Blast Operator Name Role Phone Nikki Alcantar MD Primary Care Provider Michelle Norris MD Primary Care Provider Unavail able [facility] Primary Care Provider [facility] Michelle Norris MD Primary Care Provider Unavail [facility] Rosetta Diamond MD Primary Care Provider + Encounter Details Date Type Department Care Team Description 11/15/2010 Business Doc Medical Records [address] [place] [phone] Abstract, Provider Social History Tobacco Use Types [...] on filedocumented in this encounter Care Teams Shell Molding Roller Blast Operator Relationship Specialty Start Date End Date Nikki Alcantar MD [address] [place] [address] 78693 PCP - General 06/26/05 03/04/17 Michelle Norris MD [address] [place] [address] PCP - General Internal Medicine 03/05/17 03/16/21 [facility], Pcp [address] [place] [address] 58919 PCP - General Internal Medicine 03/17/21 05/04/21 Michelle Norris MD [address] [place] [address] [place] [address] PCP - General Internal Medicine 05/05/21 09/13/22 Rosetta Diamond MD [address] [place], [place] [phone] PCP - General Internal Medicine 09/14/22 documented as of this encounter
--- OUTSIDE RECORDS SUMMARY | 2025-10-11 02:18 | XMS_ITS | Encounter Summary ---
Author Organization [facility] Prior to 08/15/2024 Address [address] [place] [address] Care Team Providers Care Visual Training Aide Name Role Phone Nikki Alcantar MD Primary Care Provider [phone] Michelle Norris MD Primary Care Provider Unavail able [facility], Pcp [facility] MD Primary Care Provider Unavail able Rosetta Diamond MD Primary Care Provider + Reason for Visit * Reason Onset Date Comments Faxed Order 10/18/2016 Encounter Details Date Type Department Care Team Description 10/18/2016 Telephone Adult Medicine [address] [phone] Nikki Alcantar MD [address] [place] [address] [phone] Faxed Order Social History Tobacco Use Types [...] from [facility]. Fax placed in dr josé palmer. documented in this encounter Plan of Treatment Not on file documented as of this encounter Visit Diagnoses Not on filedocumented in this encounter Care Teams Visual Training Aide Relationship Specialty Start Date End Date Nikki Alcantar MD [address] [place] [address] PCP - General 06/26/05 03/04/17 Michelle Norris MD [address] [place] [address] 15443 PCP - General Internal Medicine 03/05/17 03/16/21 [place] [phone] PCP - General Internal Medicine 03/17/21 05/04/21 Michelle Norris MD [address] [place] [address] 31276 PCP - General Internal Medicine 05/05/21 09/13/22 Rosetta Diamond MD [address] [place], [place] [phone] PCP - General Internal Medicine 09/14/22 documented as of this encounter
--- OUTSIDE RECORDS SUMMARY | 2025-10-11 02:18 | XMS_ITS | Encounter Summary ---
Author Organization [facility] Prior to 08/15/2024 Address [address] [place] [address] Care Team Providers Care Transformation Specialist Name Role Phone Nikki Alcantar MD Primary Care Provider [phone] Michelle Norris MD Primary Care Provider Unavail able [facility] Primary Care Provider [facility] Michelle Norris MD Primary Care Provider Unavail able Rosetta Diamond MD Primary Care Provider + Encounter Details Date Type Department Care Team Description 11/11/2016 Hospital Medical Records [address] [place] [address] Andrew Rollins Social History Tobacco Use Types [...] on filedocumented in this encounter Care Teams Transformation Specialist Relationship Specialty Start Date End Date Nikki Alcantar MD [address] [place] [address]86 PCP - General 06/26/05 03/04/17 Michelle Norris MD [address] [place] [address] 27160 PCP - General Internal Medicine 03/05/17 03/16/21 [facility], Pcp [address] [place] [address] 56838 PCP - General Internal Medicine 03/17/21 05/04/21 Michelle Norris MD [address] [place] [address] 22021 PCP - General Internal Medicine 05/05/21 09/13/22 Rosetta Diamond MD [address] [place] [address] 0[address]20 PCP - General Internal Medicine 09/14/22 documented as of this encounter
--- OUTSIDE RECORDS SUMMARY | 2025-10-11 02:18 | XMS_ITS | Encounter Summary ---
Author Organization [facility] Prior to 08/15/2024 Address [address] [place] [address] Care Team Providers Care Sample Case Porter Name Role Phone Nikki Alcantar MD Primary Care Provider [phone] Michelle Norris MD Primary Care Provider Unavail able [facility], Pcp [facility] Michelle Norris MD Primary Care Provider Unavail able Rosetta Diamond MD Primary Care Provider + Reason for Visit * Reason Onset Date Comments VNA Call 08/29/2016 Encounter Details Date Type Department Care Team Description 08/29/2016 Telephone Adult Medicine [address] [phone] Nikki Alcantar MD [address] [place] [address] [phone] VNA Call Social History Tobacco Use Types [...] 2x a week. Verbal order given for [place] Honey dressing by Dr. Vigil (in absence of Dr. Alcantar) on 08/24/16. Pt has an appt with Dr. Alcantar [...] tomorrow number to be reached at is [phone] * Telephone Encounter - Darcy Nicole - [...] filedocumented in this encounter Care Teams Sample Case Porter Relationship Specialty Start Date End Date Nikki Alcantar MD [address] [place] [address] 01020 PCP - General 06/26/05 03/04/17 Michelle Norris MD [address] [place] [address] 79724 PCP - General Internal Medicine 03/05/17 03/16/21 [facility], Pcp [address] [place] [address] 26109 PCP - General Internal Medicine 03/17/21 05/04/21 Michelle Norris MD [address] [place] [address] 60009 PCP - General Internal Medicine 05/05/21 09/13/22 Rosetta Diamond MD [address] [place] [address] 6[address] PCP - General Internal Medicine 09/14/22 documented as of this encounter
--- OUTSIDE RECORDS SUMMARY | 2025-10-11 02:18 | XMS_ITS | Encounter Summary ---
Author Organization [facility] Prior to 08/15/2024 Address [address] [place] [address] Care Team Providers Care Vault Installer Name Role Phone Nikki Alcantar MD Primary Care Provider [phone] Michelle Norris MD Primary Care Provider Unavail able [facility] Primary Care Provider [facility] Michelle Norris MD Primary Care Provider Unavail [facility] Rosetta Diamond MD Primary Care Provider + Encounter Details Date Type Department Care Team Description 09/25/2016 Hospital Medical Records [address] [place] [address] 06366 Abstract, Provider Social History Tobacco Use Types [...] on filedocumented in this encounter Care Teams Vault Installer Relationship Specialty Start Date End Date Nikki Alcantar MD [address] [place] [address] 43637 PCP - General 06/26/05 03/04/17 Michelle Norris MD [address] [place] [address] PCP - General Internal Medicine 03/05/17 03/16/21 [facility], Pcp [address] [place] [address] PCP - General Internal Medicine 03/17/21 05/04/21 Michelle Norris MD [address] [place] [address] 47180 PCP - General Internal Medicine 05/05/21 09/13/22 Rosetta Diamond MD [address] [place] [address] [phone] PCP - General Internal Medicine 09/14/22 documented as of this encounter
[2025-10-11 02:59] VITALS: BP 109/67; PULSE 108; RESP 16; TEMP 36.5; O2SAT 96
== END 2025-10-11 03:02 | disposition home or self-care (01) ==
PROVIDERS: Emergency Provider Emergency Medicine
DX: R07.89 Other chest pain (principal); R00.0 Tachycardia, unspecified; K21.9 Gastro-esophageal reflux disease without esophagitis; E11.9 Type 2 diabetes mellitus without complications; F17.200 Nicotine dependence, unspecified, uncomplicated; Z71.6 Tobacco abuse counseling
CPT/HCPCS: 36415; 71045; 80053; 81003; 83735; 84484; 85025; 93005; 99283; 99284

== ENCOUNTER → 2025-10-10 22:52 | Outpatient (BNV) | payer MEDICARE, MEDICAID, SELFPAY | PROVIDERS: Emergency Provider Emergency Medicine; Visit Provider Radiology Diagnostic Radiology | DX: R07.9 Chest pain, unspecified (principal) | CPT/HCPCS: 71045 ==

== ENCOUNTER → 2025-10-10 23:07 | Outpatient (BNV) | payer MEDICARE, MEDICAID, SELFPAY | PROVIDERS: Emergency Provider Emergency Medicine; Visit Provider Internal Medicine Cardiovascular Disease | DX: R00.0 Tachycardia, unspecified (principal); I51.7 Cardiomegaly | CPT/HCPCS: 93010 ==